=== PATIENT | female | born 1945 | race Caucasian/White ===

== ENCOUNTER → 2018-04-19 13:20 | Outpatient (CLI) | payer MEDICARE, SELFPAY ==
[2018-04-19 13:41] LABS: Hematocrit 40.5 % (37-47); Hemoglobin 12.7 g/dl (12.0-15.0); Mean Corp Hgb Conc 31.4 g/gl (32-36); Mean Corpuscular Hgb 29.6 pg (27.0-32.0); Mean Corpuscular Volume 94.4 fL (81-99); Mean Platelet Vol. 11.2 fl (6.2-12.0); Platelet Count 235 K/mm3 (150-450); RBC Distribution Width CV 12.8 % (11.6-14.6); RBC Distribution Width SD 43.8 fl (35.1-43.9); Red Blood Count 4.29 M/mm3 (4.2-5.4); White Blood Count 5.6 K/mm3 (4.4-11.0)
[2018-04-19 13:46] LABS: Scan Indicated on CBC? Y/N NO
[2018-04-19 14:06] LABS: Hemoglobin A1c 7.9 % (4.2-6.3)
[2018-04-19 14:09] LABS: AST(SGOT) 16 U/L (15-37); Alanine Aminotransfer ALT/SGPT 23 U/L (13-56); Albumin, Serum 3.8 g/dL (3.2-5.0); Alkaline Phosphatase 120 U/L (45-117); Anion Gap 6 (5-15); BUN 20 mg/dL (7-18); BUN/Creat Ratio 17.5 RATIO (10-20); Calcium,Total 9.1 mg/dL (8.5-10.1); Chloride 108 mmol/L (98-107); Cholesterol 181 mg/dL (200); Creatinine, Serum 1.14 mg/dL (0.55-1.02); EST Glomerular Filtration Rate 50 mL/min (>60); Est Glom Filt Rate - Afr Amer 60 mL/min (>60); Globulin 3.8 g/dL (2.2-4.2); Glucose 141 mg/dL (74-106); High Density Lipoprotein 45 mg/dL; Potassium 4.5 mmol/L (3.5-5.1); Protein, Total 7.6 g/dL (6.4-8.2); Sodium Level 140 mmol/L (136-145); Thyroid Stim Hormone (TSH) 5.39 uIU/mL (0.358-3.74); Triglycerides 124 mg/dL; Very Low Density Lipoprotein 25 mg/dL (5-40)
[2018-04-19 14:15] LABS: Microalbumin,Random Urine 28.8 mg/L (NO RANGE EST.); Microalbumin:Creatinine Ratio 12.2 mg/g CRE (<30 mg/g CRE)
== END ==
PROVIDERS: Referring Provider Family Medicine; Visit Provider Family Medicine
DX: E11.22 Type 2 diabetes mellitus with diabetic chronic kidney disease (principal); N18.9 Chronic kidney disease, unspecified; E78.5 Hyperlipidemia, unspecified; Z79.899 Other long term (current) drug therapy
CPT/HCPCS: 80053; 80061; 82043; 82570; 83036; 84443; 85027

== ENCOUNTER → 2018-07-24 13:49 | Outpatient (CLI) | payer MEDICARE, SELFPAY ==
[2018-07-24 14:59] LABS: Absolute Lymphocyte Count 2.32 X10^3/ul (0.83-4.51); Absolute Neutrophil Count 4.3 X10^3/uL (2.0-7.7); Basophil# 0.02 X10^3/uL; Basophil% 0.3 % (0-1); Eosinophil# 0.11 X10^3/uL; Eosinophils% 1.5 % (0-5); Hematocrit 38.1 % (37-47); Hemoglobin 11.9 g/dl (12.0-15.0); Lymphocyte # 2.32 X10^3/ul (4.0); Lymphocyte % 31.2 % (19-41); Mean Corp Hgb Conc 31.2 g/gl (32-36); Mean Corpuscular Hgb 29.5 pg (27.0-32.0); Mean Corpuscular Volume 94.5 fL (81-99); Mean Platelet Vol. 10.8 fl (6.2-12.0); Monocyte# 0.68 X10^3/uL; Monocyte% 9.1 % (0-10); Neutrophil % 57.8 % (47-70); Platelet Count 322 K/mm3 (150-450); RBC Distribution Width CV 12.2 % (11.6-14.6); RBC Distribution Width SD 41.7 fl (35.1-43.9); Red Blood Count 4.03 M/mm3 (4.2-5.4); White Blood Count 7.4 K/mm3 (4.4-11.0)
[2018-07-24 15:00] LABS: POSITIVE COUNT NO; POSITIVE DIFFERENTIAL NO; POSITIVE MORPHOLOGY NO
== END ==
PROVIDERS: Referring Provider Specialist; Visit Provider Specialist
DX: Z01.812 Encounter for preprocedural laboratory examination (principal); M17.11 Unilateral primary osteoarthritis, right knee
CPT/HCPCS: 36415; 85025

== ENCOUNTER → 2018-08-24 | Outpatient (CLI) | payer MEDICARE, SELFPAY ==
--- NOTE | 2018-08-24 15:17 | VDLE_ITS ---
Reason For Study: PAIN RIGHT GSV is normal. CFV is compressible, spontaneous, phasic, competent and demonstrates normal augmentation. FV is compressible, spontaneous, phasic, competent and demonstrates normal augmentation. POP V is compressible, spontaneous, phasic, competent and demonstrates normal augmentation. T/P Trunk is compressible. PTV is compressible. RT PerV is compressible. Procedure Exam performed in department. A preliminary report was called and/or faxed to DR RETANA. Interpretation Summary There is no evidence of right lower extremity deep vein thrombosis. Right greater saphenous vein appears patent and compressible segmentally. Ordering Physician: Baldo Retana Referring Physician: KAMERON BAILEY Performed By: Diane Chang, RDCS, RVT
== END | disposition home or self-care (01) ==
LOC: CVS 15:12
PROVIDERS: Family Provider Family Medicine; PCP Family Medicine; Referring Provider Specialist; Visit Provider Specialist
DX: M79.661 Pain in right lower leg (principal)
CPT/HCPCS: 93971

== ENCOUNTER → 2018-10-23 | Outpatient (CLI) | payer MEDICARE, SELFPAY ==
[2018-10-23 13:59] LABS: Mucous, Urine 0 SEEN /hpf (<or=2+); Red Blood Cells-Urine 0 SEEN /hpf (0-5); Squamous Epithelial Cells - UA 0 SEEN /hpf (5-10)
[2018-10-23 14:39] LABS: Color, Urine Straw (Yellow); Glucose, Dipstick Normal (Normal); Ketone-Dipstick Negative (Negative); Leukocyte Esterase-Dipstick 500 /ul (Negative); Nitrite-Dipstick Negative (Negative); Occult Blood-Urine 25 /ul (Negative); Protein-Dipstick 30 mg/dl (Negative); Urine Bilirubin Dipstick Negative (Negative); Urine Clarity Cloudy (Clear); Urine Urobilinogen Normal (Normal)
[2018-10-23 14:53] LABS: Bacteria 3+ /hpf (None Seen); White Blood Cells 25-50 SEEN /hpf (0-5)
[2018-10-23 14:54] LABS: Amorphous Sediment 1+
== END | disposition home or self-care (01) ==
LOC: LABSPEC 13:13
PROVIDERS: Family Provider Family Medicine; PCP Family Medicine; Referring Provider Family Medicine; Visit Provider Family Medicine
DX: R30.0 Dysuria (principal); R39.9 Unspecified symptoms and signs involving the genitourinary system
CPT/HCPCS: 81001; 87077; 87086; 87088; 87186

== ENCOUNTER → 2019-04-13 09:13 | Outpatient (CLI) | payer MEDICARE, SELFPAY ==
[2019-04-13 10:01] LABS: Hematocrit 38.4 % (37-47); Hemoglobin 12.3 g/dL (12.0-15.0); Mean Corpuscular Hgb 30.2 pg (27.0-32.0); Mean Corpuscular Volume 94.3 fL (81-99); Mean Platelet Vol. 11.5 fl (6.2-12.0); Platelet Count 195 K/mm3 (150-450); RBC Distribution Width CV 12.5 % (11.6-14.6); Red Blood Count 4.07 M/mm3 (4.2-5.4); White Blood Count 6.4 K/mm3 (4.4-11.0)
[2019-04-13 10:19] LABS: Microalbumin,Random Urine 23.1 mg/L (NO RANGE EST.); Microalbumin:Creatinine Ratio 20.6 mg/g CRE (<30 mg/g CRE)
[2019-04-13 10:28] LABS: Hemoglobin A1c 7.3 % (4.2-6.3)
[2019-04-13 10:34] LABS: ALB/GLOB Ratio 1.1 RATIO (0.9-2.4); AST(SGOT) 13 U/L (15-37); Alanine Aminotransfer ALT/SGPT 19 U/L (13-56); Albumin, Serum 3.8 g/dL (3.2-5.0); Alkaline Phosphatase 116 U/L (45-117); Anion Gap 8 (5-15); BUN 17 mg/dL (7-18); BUN/Creat Ratio 15.3 RATIO (10-20); Calcium,Total 8.9 mg/dL (8.5-10.1); Chloride 108 mmol/L (98-107); Cholesterol 212 mg/dL (200); Creatinine, Serum 1.11 mg/dL (0.55-1.02); EST Glomerular Filtration Rate 51 mL/min (>60); Est Glom Filt Rate - Afr Amer 62 mL/min (>60); Globulin 3.4 g/dL (2.2-4.2); Glucose 157 mg/dL (74-106); High Density Lipoprotein 51 mg/dL; Potassium 3.9 mmol/L (3.5-5.1); Protein, Total 7.2 g/dL (6.4-8.2); Sodium Level 143 mmol/L (136-145); Thyroid Stim Hormone (TSH) 6.47 uIU/mL (0.358-3.74); Triglycerides 195 mg/dL; Very Low Density Lipoprotein 39 mg/dL (5-40)
== END ==
PROVIDERS: Family Provider Family Medicine; PCP Family Medicine; Referring Provider Family Medicine; Visit Provider Family Medicine
DX: E11.29 Type 2 diabetes mellitus with other diabetic kidney complication (principal); E78.5 Hyperlipidemia, unspecified; E11.22 Type 2 diabetes mellitus with diabetic chronic kidney disease; N18.3 Chronic kidney disease, stage 3 (moderate); E03.9 Hypothyroidism, unspecified
CPT/HCPCS: 36415; 80053; 80061; 82043; 82570; 83036; 84443; 85027

== ENCOUNTER → 2019-10-17 10:00 | Outpatient (CLI) | payer MEDICARE, SELFPAY ==
[2019-10-17 14:10] LABS: Hemoglobin A1c 6.9 % (3.8-5.6)
[2019-10-17 14:11] LABS: Cholesterol 179 mg/dL (200); High Density Lipoprotein 48 mg/dL; Thyroid Stim Hormone (TSH) 4.66 uIU/mL (0.358-3.74); Triglycerides 134 mg/dL; Very Low Density Lipoprotein 27 mg/dL (5-40)
== END ==
PROVIDERS: PCP Family Medicine; Referring Provider Family Medicine; Visit Provider Family Medicine
DX: E78.5 Hyperlipidemia, unspecified (principal); E11.22 Type 2 diabetes mellitus with diabetic chronic kidney disease
CPT/HCPCS: 80061; 83036; 84443

== ENCOUNTER → 2020-11-04 12:29 | Outpatient (CLI) | payer MEDICARE, SELFPAY ==
[2020-11-04 13:46] LABS: Hemoglobin A1c 7.8 % (3.8-5.6)
[2020-11-04 13:48] LABS: ALB/GLOB Ratio 1.1 RATIO (0.9-2.4); AST(SGOT) 19 U/L (15-37); Alanine Aminotransfer ALT/SGPT 27 U/L (13-56); Alkaline Phosphatase 108 U/L (45-117); Anion Gap 4 (5-15); BUN 16 mg/dL (7-18); BUN/Creat Ratio 12.6 RATIO (10-20); Chloride 107 mmol/L (98-107); Cholesterol 176 mg/dL (200); Creatinine, Serum 1.27 mg/dL (0.55-1.02); EST Glomerular Filtration Rate 44 mL/min (>60); Est Glom Filt Rate - Afr Amer 53 mL/min (>60); Globulin 3.7 g/dL (2.2-4.2); Glucose 156 mg/dL (74-106); High Density Lipoprotein 56 mg/dL; Potassium 4.2 mmol/L (3.5-5.1); Protein, Total 7.7 g/dL (6.4-8.2); Sodium Level 139 mmol/L (136-145); Thyroid Stim Hormone (TSH) 5.35 uIU/mL (0.358-3.74); Triglycerides 110 mg/dL; Very Low Density Lipoprotein 22 mg/dL (5-40)
[2020-11-04 14:05] LABS: Microalbumin,Random Urine 30.9 mg/L (NO RANGE EST.); Microalbumin:Creatinine Ratio 28.3 mg/g CRE (<30 mg/g CRE)
== END ==
PROVIDERS: PCP Family Medicine; Visit Provider Family Medicine
DX: E11.22 Type 2 diabetes mellitus with diabetic chronic kidney disease (principal); E78.5 Hyperlipidemia, unspecified; E03.9 Hypothyroidism, unspecified; N18.9 Chronic kidney disease, unspecified
CPT/HCPCS: 80053; 80061; 82043; 82570; 83036; 84443

== ENCOUNTER 2021-05-17 12:24 | Outpatient (CLI) | payer MEDICARE, SELFPAY ==
[2021-05-17 14:10] LABS: Cholesterol 182 mg/dL (200); High Density Lipoprotein 41 mg/dL; Thyroid Stim Hormone (TSH) 7.79 uIU/mL (0.358-3.74); Triglycerides 155 mg/dL; Very Low Density Lipoprotein 31 mg/dL (5-40)
[2021-05-17 14:48] LABS: Hemoglobin A1c 7.3 % (3.8-5.6)
== END 2021-05-17 23:59 | disposition short-term general hospital (02) ==
PROVIDERS: PCP Family Medicine; Referring Provider Family Medicine; Visit Provider Family Medicine
DX: E03.9 Hypothyroidism, unspecified (principal); E11.22 Type 2 diabetes mellitus with diabetic chronic kidney disease; N18.32 Chronic kidney disease, stage 3b; E78.5 Hyperlipidemia, unspecified
CPT/HCPCS: 80061; 83036; 84443

== ENCOUNTER 2024-08-02 12:23 | Emergency (ER) | payer MEDICARE, SELFPAY ==
[2024-08-02] VITALS (7 sets, daily range): BP systolic 150–172; BP diastolic 79–99; PULSE 96–111; RESP 16–19; TEMP 36.6; O2SAT 96–98; BMI 26.6
--- NOTE | 2024-08-02 12:24 | CT_ITS ---
EXAM: CT Head Without Intravenous Contrast CLINICAL INDICATION: NEURO DEFICIT, ACUTE, STROKE SUSPECTED TECHNIQUE: Axial computed tomography images of the head/brain without intravenous contrast. This CT exam was performed using one or more of the following dose reduction techniques: automated exposure control, adjustment of the mA and/or kV according to patient size, and/or use of iterative reconstruction technique. COMPARISON: No relevant prior studies available. FINDINGS: BRAIN AND EXTRA-AXIAL SPACES: Areas of decreased attenuation in the deep cerebral white matter are consistent with small vessel ischemic/degenerative changes. The cerebral and cerebellar sulci are prominent consistent with brain atrophy. No acute intracranial hemorrhage, midline shift or mass effect. If symptoms persist, further evaluation with MRI is recommended. BONES/JOINTS: Unremarkable. No acute fracture. SOFT TISSUES: Unremarkable. SINUSES: Unremarkable as visualized. No acute sinusitis. MASTOID AIR CELLS: Unremarkable as visualized. No mastoid effusion. CT/STROKE Brain/Head without Cont IMPRESSION: 1. Small vessel ischemic/degenerative changes. 2. Generalized brain atrophy. 3. No acute intracranial hemorrhage, midline shift or mass effect. If symptoms persist, further evaluation with MRI is recommended. Findings were discussed with Dr. Morgan by phone on 08/02/2024 at 1250 hours. Reading [facility]
--- NOTE | 2024-08-02 12:24 | CT_ITS ---
PROCEDURE: STROKE CTA HEAD AND NECK W/CON 08/02/2024 REASON FOR EXAM: NEURO DEFICIT, ACUTE, STROKE SUSPECTED TECHNIQUE: CTA imaging of the head and neck from the aortic arch to the skull vertex with intravenous contrast. 3D reconstructions. Coronal and Sagittal reconstruction series were provided. CONTRAST: Isovue 370 VOLUME: 100mL One or more dose reduction techniques were used (e.g., Automated exposure control, adjustment of the mA and/or kV according to patient size, use of iterative reconstruction technique). RADIATION DOSE SUMMARY: CTDlvol: 18.61 mGy DLP: 780.22 mGycm COMPARISON: Comparison is made with prior CT scan of the brain done earlier in the day. FINDINGS: Aortic Arch: Normal size and branching pattern. Mild atherosclerotic plaque. Brachiocephalic and Subclavians: Unremarkable RIGHT Carotid: Right CCA: Unremarkable. Right ICA: Mild calcified and soft plaque.. Less than 50% narrowing. Right ECA: Unremarkable. LEFT Carotid: Left CCA: Unremarkable. Left ICA: Mild calcified and soft plaque. Maximum stenosis (NASCET): <50 % Left ECA: Vertebrals: RIGHT Vertebral: Small right vertebral artery LEFT Vertebral: Dominant left vertebral artery Anatomy: Atherosclerotic calcification of the cavernous portions of the internal carotid arteries bilaterally. Aneurysm or avm: No intracranial aneurysms or large vascular malformations are identified. Anterior cerebral arteries: Unremarkable: Middle cerebral arteries: Unremarkable. Basilar artery: Unremarkable. Posterior cerebral arteries: Unremarkable. Other major branches of the posterior circulation: Unremarkable. CT/STROKE CTA Head AND Neck W/Con IMPRESSION: RIGHT CAROTID: Mild degree of calcific plaque at the origin of the right hospitality internship al carotid artery. LEFT CAROTID: Mild degree of calcific plaque at the origin of the left internal carotid artery. VERTEBRALS: Dominant left vertebral artery INTRACRANIAL: Unremarkable Other impression: No significant stenosis seen. Reading Location: [place] [id number]
--- NOTE | 2024-08-02 12:24 | EKG12_ITS ---
Test Reason : STROKE Blood Pressure : */* mmHG Vent. Rate : 96 BPM Atrial Rate : * BPM P-R Int : * ms QRS Dur : 82 ms QT Int : 366 ms P-R-T Axes : * 74 184 degrees QTcB Int : 462 ms Atrial fibrillation Nonspecific ST and T wave abnormality Abnormal ECG Confirmed by PEDRITO LAWSON, ROCHELLE ([id number]), newspaper managing editor NAIMA BEARDEN ([id number]) on 08/05/2024 6:47:07 AM Referred By: Confirmed By: ROCHELLE MAJOR MD
--- NOTE | 2024-08-02 12:25 | EDS_ITS ---
HPI History of Present Illness Chief Complaint: Stroke Alert Informant: patient and EMS Narrative Narrative: Patient presenting from home by EMS as a prehospital stroke alert. Last seen normal 9:15 AM, arrives 12:20 PM approximately. found her lying on the floor about 10 or 20 minutes prior to noon when he came home from work. Patient amnestic about all events since he left for work, but states she thinks she remembers taking her medications this morning. EMS states left-sided weakness resulting in a fall and a minor injury to her left temporal area of her face. Unknown medications per EMS. Prehospital blood pressure and vital signs and BGT noted. Patient confirms she takes Eliquis which is on her list in the EMR. states they returned home from [facility] about 1.5-2 weeks ago, and they both had colds. He is better, but she is on round 2. [facility] Medical History Paroxysmal atrial fibrillation with RVR Coronary artery disease Essential hypertension Hyperlipidemia Kidney disease Type 2 diabetes mellitus without complication Goiter Diverticulosis Home Medications ?Medication ?Instructions ?Recorded ?Last Taken ?Type apixaban 2.5 mg tablet (Eliquis) 2.5 mg PO BID 5 Unknown History atenolol 50 mg tablet 50 mg PO QDAY 07/03/24 Unkno wn History atorvastatin 80 mg tablet 80 mg PO QHS 07/03/24 Unknow n History doxycycline hyclate 100 mg capsule 100 mg PO BID 07/03 Unknown History glimepiride 2 mg tablet 2 mg PO QAM 07/03/24 Unknown History levothyroxine 75 mcg tablet 75 mcg PO 6XW 07/03/24 Unk nown History metformin 500 mg tablet,extended 1,000 mg PO QDAY 06/15 02/06 Unknown History release 24 hr oxybutynin chloride 5 mg 5 mg PO QDAY 07/03/24 Unknow n History tablet,extended release 24 hr amoxicillin 500 mg capsule 500 mg PO Q8H 08/02/24 Unkn own History Allergy/AdvReac Type Severity Reaction Status Date / Time benzocaine Allergy Unknown Rash Verified 08/02/24 12:45 perfume Allergy Unknown Shortness Verified 08/02/24 12:45 of breath Sulfa (Sulfonamide Allergy Unknown Unknown Verified 08/02/24 12:45 Antibiotics) cocaine AdvReac Unknown Inverted T Verified 08/02/24 12:45 waves Family History (Updated 07/03/24 @ 10:19 by Bertha Turpin) Mother Diabetes Hypertension Psychiatric disorder Grandmother Cancer Sister Thyroid disorder Surgical History History of cyst of breast History of History of bilateral cataract extraction History of open reduction and internal fixation (ORIF) procedure History of colonoscopy (~2021) Social History Smoking Status: Never smoker alcohol intake: never substance use type: does not use ROS ROS ED Constitutional Constitutional ED: Denies chills or fever(s) Eyes Eyes: Denies change in vision or diplopia ENT ENT ED: Denies rhinorrhea or sore throat Cardiovascular Cardiovascular: Denies chest pain or palpitations Respiratory/Chest Respiratory/Chest: Denies cough or dyspnea Gastrointestinal Gastrointestinal: Denies abdominal pain, diarrhea, nausea or vomiting Genitourinary Genitourinary ED: Denies dysuria or hematuria Musculoskeletal Musculoskeletal: Denies back pain or neck pain Integumentary Denies abscess or rash Neurologic Neurologic: Reports weakness; Denies headache(s) EXAM Physical Exam Const Vital Signs: 08/02/24 12:37 08/02/24 12:41 08/02/24 12:46 Temperature 98 F Temperature Source Oral Pulse Rate 99 99 Respiratory Rate 17 16 Blood Pressure 172/99 H 157/86 H Blood Pressure Mean 123 109 Pulse Ox 98 96 Oxygen Delivery Method Room Air Room Air Room Air 08/02/24 12:54 Temperature Temperature Source Pulse Rate 98 Respiratory Rate 18 Blood Pressure 163/97 H Blood Pressure Mean 119 Pulse Ox 97 Oxygen Delivery Method Room Air Positive well nourished and well developed General Appearance ED: well developed and NAD HEENT Reports moist mucous membranes HEENT Narrative: Contusion/abrasion left temporal forehead, just left of the orbit. Zygomatic arch intact and nontender without crepitance or deformity. No hematoma. No other signs of HEENT trauma. normocephalic and trauma Eyes PERRL and EOMs intact bilaterally Neck full ROM and supple Resp normal respiratory effort and clear to auscultation bilaterally Cardio no murmurs Rhythm: abnormal rhythm irregularly irregular GI non-tender and non-distended Auscultation: normoactive bowel sounds Palpation: soft Back/Spine no CVA tenderness General Back: other FROM Extremity normal to inspection Extremity Narrative: Distal pulses intact x 4 General Extremety ED: Negative for edema, pulses abnormal or tenderness General Extremity: Negative for edema or pulses abnormal Neuro Neuro Narrative: Dense weakness left arm and leg and left lower face. Raises eyebrows normally. Has some hemineglect with regards to vision although she is able to overcome gazing left with reflexive movements, and visual richards appear to be intact, as well as hemineglect of the leg. Sensorium / Orientation: awake and alert Psych mental status grossly normal Skin no rashes or lesions noted and no wounds NIHSS NIHSS Initial: 1a Level of Consciousness: 1 1b LOC Questions (Score 2 if aphasic/stupor): 1 1c LOC Commands (Only score 1st attempt): 0 2 Best Gaze (If aphasic, use reflexive mvmts.): 1 3 Visual: 0 4 Facial Palsy: 2 5 Motor Arm Right (UN = amputation/fusion): 0 5 Motor Arm Left: 4 6 Motor Leg Right: 0 6 Motor Leg Left: 3 7 Limb ataxia (Only + if out of proportion): 0 8 Sensory (Aphasia/stupor=0 or 1, coma=2): 2 9 Best Language: 0 10 Dysarthria (mute, coma=2, intubated=UN): 1 11 Extinction and Inattention (only scored if +): 2 Total Score: 17 MDM MDM MDM Narrative Medical decision making narrative: Patient initially seen in the EMS bay, sent directly to CT and reevaluated more thoroughly once patient arrived to the room and the arrived to provide more history, see HPI. Patient think she last took her Eliquis this morning, the plain CT shows no hemorrhage. The states that she is inconsistent with taking her medications sometimes and so he did not know when she last took it. Given the history, the stroke neurologist and I both agree that it is too risky to give her TNK given that history. Spoke with Dr. Gibson with stroke neurology at 1255, who was able to view the CTA imaging and confirms that there is a right MCA M1 LVO and recommends that we transfer the patient there soon as possible. [facility] contacted for air transport. Discussed with and patient, they are comfortable with [facility] transfer. Lab Data Attestation: I reviewed the patient's lab results. Labs: Laboratory Results - last 24 hr 08/02/24 12:40 WBC 8.7 RBC 4.56 Hgb 13.8 Hct 42.0 MCV 92.1 MCH 30.3 MCHC 32.9 RDW Std Deviation 45.3 H RDW Coeff of Blake 13.3 Plt Count 214 MPV 10.7 Immature Gran % (Auto) 0.300 Neut % (Auto) 71.4 H Lymph % (Auto) 17.9 L Yell % (Auto) 8.9 Eos % (Auto) 1.0 Baso % (Auto) 0.5 Absolute Neuts (auto) 6.2 Absolute Lymphs (auto) 1.56 Nucleated RBC % 0 PT 14.1 INR 1.1 APTT 28.4 Sodium 132 L Potassium 4.2 Chloride 98 Carbon Dioxide 22.0 Anion Gap 12 BUN 20 H Creatinine 1.74 H Estim Creat Clear Calc 27.14 L Est GFR (MDRD) Non-Af 29 L BUN/Creatinine Ratio 11.6 Glucose 235 H Calcium 9.0 Troponin T High Sens 38 H Radiography Diagnostic Testing: Clinical Impression(s) from Imaging Studies Brain CT 08/02/24 12:24 IMPRESSION: 1. Small vessel ischemic/degenerative changes. 2. Generalized brain atrophy. 3. No acute intracranial hemorrhage, midline shift or mass effect. If symptoms persist, further evaluation with MRI is recommended. Findings were discussed with Dr. Morgan by phone on 08/02/2024 at 1250 hours. Reading Location: [facility] Head/Neck CTA 08/02/24 12:24 IMPRESSION: RIGHT CAROTID: Mild degree of calcific plaque at the origin of the right internal carotid artery. LEFT CAROTID: Mild degree of calcific plaque at the origin of the left internal carotid artery. VERTEBRALS: Dominant left vertebral artery INTRACRANIAL: Unremarkable Other impression: No significant stenosis seen. Reading Location: [facility] Rhythm Strip Rhythm Strip: A-fib Rate: 90 Ectopy: None EKG Initial EKG: Attestation: I personally reviewed and interpreted this EKG as follows: Interpretation: No Acute Injury Pattern, Atrial Fibrillation and Non- Specific ST Changes Management Discussion w/another healthcare provider: Tourist Adviser ([facility] stroke neurology) and Radiologist Stroke Documentation Questions Stroke Team Activated: Yes (Prehospital) Reviewed Inclusion/Exclusion criteria: Yes Was Patient considered for Endovascular Intervention?: Yes-CTA +,PT transferred for further eval of endovascular intervention IV Thrombolytic Administered: No (On Eliquis, possibly last took within the past 6 hours) No contraindications from thrombolytic administration: No Critical Care Time Critical Care Time: Yes Critical care time (excluding procedures): 30-74 minutes (36 min), Including time spent:, Discussing w/Patient &/or Family/Biomedical Electronics Technician, Discussing w/Consultants, Arranging Admission or Transfer and Performing Direct Patient Care at Bedside Discharge Plan Triage Chief Complaint: Stroke Alert ED Provider: Pieter Morgan Dx/Rx/DC Orders Clinical Impression: Acute ischemic right MCA stroke, Anticoagulated, Acute on chronic renal insufficiency, URI (upper respiratory infection) Prescriptions: No Action doxycycline hyclate 100 mg capsule 100 mg PO BID glimepiride 2 mg tablet 2 mg PO QAM Rx Instructions: administer with breakfast levothyroxine 75 mcg tablet 75 mcg PO 6XW Eliquis 2.5 mg tablet 2.5 mg PO BID oxybutynin chloride 5 mg tablet extended release 24hr 5 mg PO QDAY atenolol 50 mg tablet 50 mg PO QDAY metformin 500 mg tablet extended release 24 hr 2,000 mg PO QDAY atorvastatin 80 mg tablet 80 mg PO QHS amoxicillin 500 mg capsule 500 mg PO Q8H Primary Care Provider: Dwain Caruso Referrals: Dwain Caruso MD [Primary Care Provider] - Print Language: Gabonese Disposition Disposition: Acute Care Hospital Discharge Location: [facility]
[2024-08-02 12:57] LABS: Absolute Lymphocyte Count 1.56 X10^3/uL (0.83-4.51); Absolute Neutrophil Count 6.2 X10^3/uL (2.0-7.7); Basophil# 0.04 X10^3/uL; Basophil% 0.5 % (0-1); Eosinophil# 0.09 X10^3/uL; Hemoglobin 13.8 g/dL (12.0-15.0); Lymphocyte # 1.56 X10^3/ul (0.83-4.51); Lymphocyte % 17.9 % (19-41); Mean Corp Hgb Conc 32.9 g/dL (32-36); Mean Corpuscular Hgb 30.3 pg (27.0-32.0); Mean Corpuscular Volume 92.1 fL (81-99); Mean Platelet Vol. 10.7 fl (6.2-12.0); Monocyte# 0.78 X10^3/uL; Monocyte% 8.9 % (0-10); NRBC Flagged by Analyzer 0 % (0-5); Neutrophil # 6.23 X10^3/uL (2.7-7.7); Neutrophil % 71.4 % (47-70); Platelet Count 214 K/mm3 (150-450); RBC Distribution Width CV 13.3 % (11.6-14.6); RBC Distribution Width SD 45.3 fl (35.1-43.9); Red Blood Count 4.56 M/mm3 (4.2-5.4); White Blood Count 8.7 K/mm3 (4.4-11.0)
[2024-08-02 13:03] LABS: International Normalized Ratio 1.1; Prothrombin Time (Protime)PT. 14.1 SECONDS (11.7-14.9)
[2024-08-02 13:04] LABS: Partial Thromboplast Time 28.4 Seconds (24.1-36.2)
[2024-08-02 13:12] LABS: Anion Gap 12 (5-15); BUN 20 mg/dL (4-19); BUN/Creat Ratio 11.6 RATIO (10-20); Chloride 98 mmol/L (98-108); Creatinine, Serum 1.74 mg/dL (0.70-1.20); EST Glomerular Filtration Rate 29 (>60); Estimated Creatinine Clearance 27.14 ml/min (50-250); Glucose 235 mg/dL (70-99); Potassium 4.2 mmol/L (3.3-5.1); Sodium Level 132 mmol/L (133-145); Troponin T High Sensitivity 38 ng/L (<=14)
--- NOTE | 2024-08-02 13:46 | CHAPLAIN ---
Type of Pastoral Visit ___ Initial Visit ___ Follow-up Visit ___ On-call Visit ___ General Patient Visit ___ Spiritual Assessment ___ Family Conference ___ Bereavement _x__ Rapid Response ___ Code Blue ___ Other (describe below) Pastoral Care Referral From ___ Patient ___ Family ___ Nurse ___ Physician ___ Level Vial Inspector And Tester ___ [employer] _x__ Other (describe below) Sacrament/Intervention _x__ Active listening ___ Anointing ___ Advent ___ Bereavement ___ Communion ___ Henny exploration ___ ___ Life review _x__ Prayer ___ Reconciliation ___ Sacrament of Sick _x__ Supportive presence ___ Wedding ___ Other (describe below) Pastoral Comments responded to stroke alert; pt was back in the room from [place]; DR was talking with the about transporting pt to [place] for treatment; things were put into place for helicopter transfer; talked with both pt and spouse; spouse gives details and explains their recent trip to [facility] safari; pt welcomes a prayer for support; offer of presence and beverages to the spouse;
== END 2024-08-02 13:56 | disposition short-term general hospital (02) ==
PROVIDERS: Emergency Provider Emergency Medicine; PCP Family Medicine; Visit Provider Emergency Medicine
DX: I63.89 Other cerebral infarction (principal); G81.94 Hemiplegia, unspecified affecting left nondominant side; I48.0 Paroxysmal atrial fibrillation; E11.22 Type 2 diabetes mellitus with diabetic chronic kidney disease; J06.9 Acute upper respiratory infection, unspecified; N18.9 Chronic kidney disease, unspecified; N17.9 Acute kidney failure, unspecified; S00.81XA Abrasion of other part of head, initial encounter; S00.83XA Contusion of other part of head, initial encounter; W19.XXXA Unspecified fall, initial encounter; I12.9 Hypertensive chronic kidney disease with stage 1 through stage 4 chronic kidney disease, or unspecified chronic kidney disease; I25.10 Atherosclerotic heart disease of native coronary artery without angina pectoris; E78.5 Hyperlipidemia, unspecified; E04.9 Nontoxic goiter, unspecified; R29.717 NIHSS score 17; Z79.01 Long term (current) use of anticoagulants; Z79.84 Long term (current) use of oral hypoglycemic drugs; Z79.890 Hormone replacement therapy; Z79.899 Other long term (current) drug therapy; Z91.148 Patient's other noncompliance with medication regimen for other reason
CPT/HCPCS: 51702; 70450; 70496; 70498; 80048; 84484; 85025; 85610; 85730; 87631; 93005; 99285; Q9967

== ENCOUNTER → 2024-10-15 05:00 | Outpatient (REF) | payer MEDICARE, SELFPAY ==
--- OUTSIDE RECORDS SUMMARY | 2024-10-15 03:38 | XMS RPT_ITS | CCD ---
Author Organization [facility] Care Team Providers Care Aluminum Pourer Name Role Phone KETTY DOWNS Attending Unavailable PHYSICIAN, NONE Primary Care Unavailable KETTY DOWNS Attending Unavailable PHYSICIAN, NONE Primary Care Unavailable KETTY DOWNS Admitting Unavailable RICHARD PRIEST Consulting Unavailable KETTY DOWNS Attending Unavailable PHYSICIAN, NONE Primary Care Unavailable Kameron Caruso Primary Care Provider Kameron Caruso Primary Care Provider Kameron Caruso MD Primary Care Provider Kameron Caruso MD Primary Care Provider Kameron Caruso MD Primary Care Provider Kameron Caruso MD Primary Care Provider Kameron Caruso MD Primary Care Provider Светлана INFANT LEAD TEACHER.Emma TUCKER Unavailable Saurav INFANT LEAD TEACHER.Mj TUCKER Unavailable JUVENTINO ROGERS Attending Unavailable JUVENTINO ROGERS Admitting Unavailable CATA ALFRED Attending Unavailable CATA ALFRED Admitting Unavailable Dr. Kameron Caruso MD Primary Care Provider Dr. Pieter Morgan MD Emergency Provider Kameron Caruso MD Primary Care Provider CHRISTOS VOSS Attending Unavailable CONSULT, GASTROENTEROLOGY Consulting PIETER Wolf Referring Unavailable PREMA RAMOS Admitting Unavailable KAMERON CARUSO Primary Care Unavailable BITTAR, RICHARD Referring Unavailable MADONNA, LUCINDA S Attending Unavailable MADONNA LUCINDA S Admitting Unavailable Tannhof Emma YAO Unavailable Unavail able KAMERON CARUSO Referring Unavailable KAMERON CARUSO Primary Care Unavailable KAMERON CARUSO Attending Unavailable KAMERON CARUSO Primary Care Unavailable EMMA SOTOMAYOR Attending Unavailable KAMERON CARUSO Primary Care Unavailable KAMERON CARUSO Primary Care Unavailable KAMERON CARUSO Primary Care Unavailable KAMERON CARUSO Referring Unavailable KAMERON CARUSO Primary Care Unavailable KAMERON CARUSO Attending Unavailable KAMERON CARUSO Primary Care Unavailable KAMERON CARUSO Referring Unavailable KAMERON CARUSO Primary Care Unavailable KAMERON CARUSO Attending Unavailable KAMERON CARUSO Primary Care Unavailable LEO LAWSON, DR MELO Primary Care Physician [phone] Cathy LAWSON, Dr. Stapleton Attending Provider Safia Ruelas MD Attending Provider UnavailDr. Kameron Marquez MD Referring Provider [phone] Makayla LAWSON, Dr. Barker Attending Provider DR KAMERON CARUSO MD Primary Care Unavailab SILVINO Monzon DO Admitting Unavailable SILVINO HA DO Attending Unavailable BRYON LAWSON, DR REECE Consulting Unavailab NANDO Lofton DO Consulting Unavailable SUDARSHAN WEATH[employer]-WOODEN BARREL MECHANIC, AMI Hwang Consulting Unavailjair GIBSON PhD, MATTHEW Zamudio Consulting Unavailable Kameron Caruso Primary Care Unavailable Enricoe OLS, Efewongbe Attending Unavailabl Kameron Jolley Primary Care Unavailable Kameron Caruso Referring Unavailable Mj Benavides Attending Unavailable Kameron Caruso Primary Care Unavailable Claudio SISAL OPERATOR, Bret Attending Unavailable Kameron Caruso Primary Care Unavailable Jessenia, Efewongbe Attending Unavailable Kameron Caruso Primary Care Unavailable Oleghe OLS, Efewongbe Attending Unavailabl e ElderKameron mckeon Primary Care Unavailable Oleghe OLS, Efewongbe Attending Unavailabl e ElderKameron mckeon Primary Care Unavailable Oleghe OLS, Efewongbe Attending Unavailabl e Oleghe OLS, Efewongbe Attending Unavailabl e Kameron Caruso Primary Care Unavailable Oleghe OLS, Efewongbe Referring Unavailabl e Elderbrock, Kameron Primary Care Unavailable Safia Vanegas [facility] Unavailable Pieter Morgan Attending Unavailable Allergies Allergy Classification Reported Allergen(s) Allergy Type Date of Onset Reaction(s) Facility (2 sources) Sulfonamides (Antibiotic) Propensity to adverse reactions to drug 6 Other (See Comments) [place] (2 sources) Other Propensity to adverse reactions 6 Shortness Of Breath [place], [place] (20 sources) Benzocaine; Translations: [BENZOCAINE] Drug Allergy [address] [facility] Work Phone: (20 sources) Cocaine; Translations: [COCAINE] Drug Allergy 9 Inverted T waves [facility] Work Phone: (20 sources) Sulfonamides (Antibiotic); Translations: [SULFA (SULFONAMIDE ANTIBIOTICS)] Propensity to adverse reactions [address] [facility] Work Phone: (20 sources) Perfumes; Translations: [PERFUMES] Propensity to adverse reactions 6 Shortness of Breath [facility] Work Phone: (2 sources) Sulfonamides (Antibiotic) Allergy to substance 5 Unknown [facility] (4 sources) perfume; Translations: [perfume] Allergy to substance 5 Shortness of breath [facility] (1 source) Cocaine; Translations: [cocaine nasal] Drug Allergy [facility] (1 source) Codeine; Translations: [codeine] Drug Allergy Pharyngeal swelling (finding) [facility] (1 source) Sulfonamide; Translations: [sulfa drugs] Drug allergy [facility] (1 source) Benzocaine Drug Allergy 5 [facility] (1 source) Cocaine Drug Allergy 5 [facility] (1 source) Sulfonamides (Antibiotic) Drug allergy (disorder) 5 [facility] Medications Current Medications Medication Drug Class(es) Dates Sig (Normalized) Sig (Original) acetaminophen 325 mg oral capsule (5 sources) Start: 09-05-2024 take 1 capsule by mouth every four hours as needed for pain Tylenol 325 mg oral capsule Dose : 650 mg =, PEG, q4h, PRN Muscle pain, 0 Refill(s) Start Date: 09/05/24 Status: Ordered Repeat number: 1 Start: 08-09-2024 End: 08-15-2024 take 975 mg intragastric route every eight hours as ne eded Start: 08-02-2024 End: 08-09-2024 take 975 mg nasogastric route every eight hours as nee ded apixaban 2.5 mg oral tablet (17 sources) Factor Xa Inhibitor Start: 10-02-2024 take 2 tablets by mouth twice daily Apixaban (Eliquis) 2.5 mg tablet Active 5 mg PO TWICE A DAY October 02, 2024 9:40am Start: 08-15-2024 apixaban 5 mg oral tablet Dose : 5 mg = 1 tab(s), PEG, BID, 0 Refill(s), 75.4 Start Date: 08/15/24 Status: Ordered Repeat number: 1 Start: 08-13-2024 End: 11-12-2024 Start: 08-11-2024 End: 08-13-2024 Start: 05-31-2024 End: 10-02-2024 take 1 tablet by mouth twice daily Apixaban (Eliquis) 2.5 mg tablet Discontinued 2.5 mg PO TWICE A DAY July 03, 2024 1:00am October 02, 2024 9:42am atorvastatin 80 mg oral tabl et (20 sources) HMG-CoA Reductase Inhibitor Start: 08-14-2024 End: 11-12-2024 Start: 08-09-2024 End: 08-15-2024 Start: 08-03-2024 End: 08-09-2024 Start: 07-03-2024 take 1 tablet by christ th at bedtime Atorvastatin 80 mg tablet Active 80 mg PO AT BEDTIME July 03, 2024 1:00am Start: 11-25-2022 End: 11-28-2023 take 1 tablet by mouth at bedtime Atorvastatin 80 mg tablet Active 80 mg PO AT BEDTIME July 03, 2024 1:00am Start: 08-06-2018 End: 01-11-2022 take 1 tablet by mouth once daily atorvastatin (LIPITOR) 80 mg tablet Indications: Hyperlipidemia, unspecified hyperlipidemia type Take 1 tablet by mouth once daily 90 tablet 3 01/11/2022 Active Comment on above: Take 1 tablet by christ once daily. Take 1 tablet by christ once daily betamethasone 0.5 mg/ml topical lotion (20 sources) Corticosteroid Start: Betamethasone Dipropionate 0.05 % lotion Indications: Psoriasis of scalp Apply 1 application to affected area twice daily. 60 mL 5 05/01/2014 Active Comment on above: Apply 1 application to affected area twice daily. Blood-Glucose Meter (ONETOUCH ULTRA2 METER) monitoring kit (1 source) Start: End: Blood-Glucose Meter (ONETOUCH ULTRA2 METER) monitoring kit 1 Each as needed for up to 1 day. One Touch Meter Kit Diagnosis: Type 2 DM - Controlled E11.9 1 Each 0 10/14/2021 10/15/2021 Active Comment on above: 1 Each as needed for up to 1 day. One Touch Meter Kit Diagnosis: Type 2 DM - Controlled E11.9 cyclobenzaprine hydrochloride 10 mg oral tablet (2 sources) Muscle Relaxant Start: End: take 1 tablet by mouth three times daily as needed for muscle spasms cyclobenzaprine (FLEXERIL) 10 mg tablet Indications: Acute midline low back pain without sciatica Take 1 tablet by mouth three times daily as needed for muscle spasm for up to 10 days. 30 tablet 0 03/02/2022 03/12/2022 Active Comment on above: Take 1 tablet by christ three times daily as needed for muscle spasm for up to 10 days. donepezil hydrochloride 5 mg oral tablet (2 sources) Start: take 1 tablet by mouth once daily Donepezil 5 mg tablet Active 5 mg PO daily October 02, 2024 12:00am Start: 09-05-2024 Aricept 5 mg o ral tablet Dose : 5 mg = 1 tab(s), Oral, qHS, 0 Refill(s) Start Date: 09/05/24 Status: Ordered Repeat number: 1 glimepiride 2 mg oral tablet (20 sources) Sulfonylurea Start: 08-14-2024 End: 11-12-2024 Start: 07-07-2022 End: 08-14-2024 glimepiride 2 mg oral tablet Dose : 4 mg = 2 tab(s), PEG, BID, 0 Refill(s) Start Date: 09/05/24 Status: Ordered Repeat number: 1 Comment on above: Take 1 tablet by christ th daily with breakfast. glucose 0.45 mg/mg oral gel (1 source) Start: 08-14-2024 insulin lispro 100 unt/ml injectable solution (1 source) Insulin Analog Start: 09-05-2024 HumaLOG 100 units/mL subcutaneous solution Give 0-6 units/dose, Subcutaneous, TIDAC, 0 Refill(s) Start Date: 09/05/24 Status: Ordered Repeat number: 1 levothyroxine (20 sources) l-Thyroxine Start: 08-15-2024 levothyroxine Dose : 75 mcg =, PEG, qDay, 0 Refill(s) Start Date: 08/15/24 Status: Ordered Repeat number: 1 Start: 08-10-2024 End: 11-12-2024 Start: 08-05-2024 End: 08-09-2024 Start: 07-03-2024 End: 08-14-2024 take 1 tablet by mouth six times weekly Levothyroxine 75 mcg tablet Active 75 ug PO 6 times per week July 03, 2024 1:00am Start: 05-30-2023 End: 11-27-2024 take 1 tablet by mouth once daily before breakfast levothyroxine (SYNTHROID) 75 mcg tablet Indications: Hypothyroidism, unspecified type Take 1 tablet by mouth daily before breakfast six days per week. 05/31/2024 Active lisinopril 10 mg oral tablet (3 sources) Angiotensin Converting Enzyme Inhibitor Start: 08-10-2024 End: 11-13-2024 Start: 08-08-2024 End: 08-09-2024 loratadine 10 mg oral tablet (1 source) Start: 10-10-2023 End: 10-19-2023 take 1 tablet by mouth once daily loratadine (CLARITIN) 10 mg tablet Take 1 tablet by mouth once daily for 9 days. 9 tablet 0 10/10/2023 10/19/2023 Active 24 hr metFORMIN hydrochloride 500 mg extended release oral tablet (20 sources) Biguanide Start: 10-02-2024 Metformin 500 mg tablet extended release 24 hr Active 850 mg PO TWICE A DAY October 02, 2024 9:41am Start: 09-05-2024 metFORMIN 500 mg oral tablet (IR) Dose : 500 mg = 1 tab(s), PEG, BID, 0 Refill(s) Start Date: 09/05/24 Status: Ordered Repeat number: 1 Start: 07-03-2024 End: 10-02-2024 Metformin 500 mg tablet exte nded release 24 hr Discontinued 2000 mg PO daily July 03, 2024 1:00am October 02, 2024 9:42am Start: 11-25-2022 End: 11-28-2023 Metformin 500 mg tablet exte nded release 24 hr Active 2000 mg PO daily July 03, 2024 1:00am Start: 05-18-2021 End: 01-11-2022 metFORMIN ER (GLUCOPHAGE XR) 500 mg 24 hr tablet Indications: Type 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, unspecified CKD stage, unspecified whether group home insulin use (HCC) , Type 2 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, without long-term current use of insulin (HCC) TAKE 4 TABLETS BY MOUTH ONCE DAILY WITH BREAKFAST 360 tablet 3 01/11/2022 Active Start: 10-24-2018 metFORMIN (GLU COPHAGE-XR) 500 MG extended release tablet Take 2,000 mg by mouth 0 10/24/2018 Active Comment on above: Take 4 tablets by mo [facility] daily with breakfast. TAKE 4 TABLETS BY MO UT ONCE DAILY WITH BREAKFAST methylphenidate hydrochloride 5 mg oral tablet (5 sources) Central Nervous System Stimulant Start: 10-03-19 take 1 tablet by mouth once daily in the morning Methylphenidate Hcl 5 mg tablet Active 5 mg PO EVERY MORNING October 02, 2024 9:42am Via PEG tube Start: 09-12-2024 End: 10-02-2024 take 1 tablet by mouth twice daily Methylphenidate Hcl 5 mg tablet Discontinued 5 mg PO TWICE A DAY 40 September 16, 2024 October 05, 2024 12:00am October 02, 2024 9:42am Via PEG tube Start: 09-09-2024 End: 09-16-2024 Ritalin 5 mg oral tablet Dos e : 5 mg = 1 tab(s), Oral, BID, 0 Refill(s), 76 Start Date: 09/09/24 Status: Ordered Repeat number: 1 methylPREDNISolone (1 source) Corticosteroid Start: 09-29-2023 End: 10-05-2023 methylPREDNISolone (MEDROL, KIKE,) 4 mg Dose-Pack Follow dosing instructions, take with food. 21 tablet 0 09/29/2023 10/05/2023 Active metoprolol tartrate 50 mg oral tablet (11 sources) beta-Adrenergic Shea Start: 10-02-2024 take 1 tablet by mouth twice daily Metoprolol Tartrate 50 mg tablet Active 50 mg PO TWICE A DAY October 02, 2024 12:00am Start: 08-15-2024 End: 09-09-2024 metoprolol tartrate 50 mg or al tablet Start: 09/09/24 8:00:00 AM EDT, Dose = 50 mg, = 1 tab(s), PEG, Hold if SBP (mmHg) Start Date: 09/09/24 Stop Date: 09/09/24 Status: Completed Repeat number: 1 Start: 08-09-2024 End: 11-12-2024 Start: 08-06-2024 End: 08-09-2024 Start: 08-03-2024 End: 08-06-2024 Start: 08-03-2024 End: 08-03-2024 ONE TOUCH GLUCOSE CONTROL SOLN (20 sources) Start: 07-08-2005 ONE TOUCH GLUC OSE CONTROL SOLN Indications: Type II or unspecified type diabetes mellitus without mention of complication, not stated as uncontrolled use as directed. 1 5 07/08/2005 Active Comment on above: use as directed. 1000 ml sodium chloride 9 mg/ml injection (5 sources) Start: 08-15-2024 End: 08-15-2024 Start: 08-03-2024 End: 08-03-2024 Start: 08-02-2024 End: 08-03-2024 Start: 01-09-2019 0.9 % sodium c hloride infusion water 1000 mg/ml irrigation solution (6 sources) Start: 08-09-2024 End: 09-13-2024 Start: 08-03-2024 End: 08-09-2024 (5 sources) Start: 08-14-2024 End: 11-12-2024 Start: 08-14-2024 End: 08-15-2024 Start: 08-12-2024 End: 08-14-2024 Start: 08-10-2024 End: 08-11-2024 Start: 08-05-2024 End: 08-10-2024 Completed/Discontinued Medications Medication Drug Class(es) Dates Sig (Normalized) Sig (Original) amoxicillin 500 mg oral capsule (2 sources) Penicillin-class Antibacterial Start: 08-02-2024 End: 10-02-2024 take 1 capsule by mouth every eight hours Amoxicillin 500 mg capsule Discontinued 500 mg PO Q8H August 02, 2024 12:00am October 02, 2024 9:42am aspirin 81 mg chewable tablet (2 sources) Platelet Aggregation Inhibitor, Nonsteroidal Anti-inflammatory Drug Start: 08-10-2024 End: 08-11-2024 Start: 08-06-2024 End: 08-09-2024 atenolol 50 mg oral tablet (20 sources) beta-Adrenergic Shea Start: 07-03-2024 End: 10-02-2024 take 1 tablet by mouth once daily Atenolol 50 mg tablet Discontinued 50 mg PO daily July 03, 2024 1:00am October 02, 2024 9:42am Start: 11-25-2022 End: 11-28-2023 take 1 tablet by mouth once daily Atenolol 50 mg tablet Active 50 mg PO daily July 03, 2024 1:00am Start: 11-30-2020 End: 01-11-2022 take 1 tablet by mouth once daily atenolol (TENORMIN) 50 mg tablet Indications: Essential hypertension, benign Take 1 tablet by mouth once daily 90 tablet 3 01/11/2022 Active Start: 11-21-2018 atenolol (TENO RMIN) 50 MG tablet Comment on above: Take 1 tablet by christ th once daily. Take 1 tablet by christ th once daily atovaquone 250 mg / proguanil hydrochloride 100 mg oral tablet (3 sources) Antimalarial, Antiprotozoal Start: 2021 End: 2021 take 1 tablet by mouth once daily atovaquone-proguani l (MALARONE) 250-100 mg per tablet Take 1 tablet by mouth once daily. Start medication 2 days prior to travel and continue for 1 week after return 30 tablet 0 10/08/2021 11/23/2021 Discontinued Comment on above: Take 1 tablet by christ once daily. Start medication 2 days prior to travel and continue for 1 week after return bisacodyl 10 mg rectal suppository (1 source) Stimulant Laxative Start: 2024 End: 2024 carvedilol 6.25 mg oral tablet (1 source) alpha-Adrenergic Shea, beta-Adrenergic Shea Start: 2024 End: 2024 cefTRIAXone 1000 mg injection (1 source) Cephalosporin Antibacterial Start: 2024 End: 2024 take 1 g intravenously every twenty-four hours chlorhexidine gluconate 1.2 mg/ml mouthwash (20 sources) Start: 2021 End: 2024 Chlorhexidine Gluconate 0.12 % mouthwash Discontinued 15 mL MUCOUS MEM TWICE A DAY July 03, 2024 1:00am August 02, 2024 12:51pm Comment on above: Use 15 mL as instruc kera twice daily. Rinse around mouth for 30 seconds then expectorate ciprofloxacin 500 mg oral tablet (1 source) Quinolone Antimicrobial Start: 2021 End: 2021 take 1 tablet by mouth twice daily as needed for diarrhea ciprofloxacin HCl (CIPRO) 500 mg tablet Take 1 tablet by mouth twice daily for 3 days. As needed for diarrhea 6 tablet 0 10/08/2021 10/11/2021 Comment on above: Take 1 tablet by christ twice daily for 3 days. As needed for diarrhea diphenhydrAMINE hydrochloride 25 mg oral tablet (1 source) Histamine-1 Receptor Antagonist Start: 2024 End: 2024 take 25 mg intragastric route every twelve hours as needed doxycycline hyclate 100 mg oral capsule (6 sources) Tetracycline-class Drug Start: 2024 End: 2024 take 1 capsule by mouth twice daily Doxycycline Hyclate 100 mg capsule Discontinued 100 mg PO TWICE A DAY July 03, 2024 1:00am October 02, 2024 9:42am Start: 07-01-2024 End: 07-31-2024 take 1 capsule by mouth twice daily doxycycline monohydrate (MONODOX) 100 mg capsule Indications: History of traveler's diarrhea Take 1 capsule by mouth two times a day for 28 days. 56 capsule 07/03/2024 07/31/2024 Active empagliflozin 10 mg oral tablet (2 sources) Sodium-Glucose Cotransporter 2 Inhibitor Start: 05-27-2022 End: 11-25-2022 take 1 tablet by mouth once daily, then take 1 tablet by mouth once daily in the morning empagliflozin (JARDIANCE) 10 mg tablet Take 1 tablet by mouth once daily. Take 1 tablet once daily in the morning 90 tablet 3 05/27/2022 11/25/2022 Discontinued Comment on above: Take 1 tablet by christ th once daily. Take 1 tablet once daily in the morning famotidine 20 mg oral tablet (3 sources) Histamine-2 Receptor Antagonist Start: 09-29-2023 End: 11-28-2023 take 1 tablet by mouth twice daily famotidine (PEPCID) 20 mg tablet Take 1 tablet by mouth two times a day. 14 tablet 0 09/29/2023 11/28/2023 Discontinued (Course of therapy completed) fluconazole 100 mg oral tablet (1 source) Azole Antifungal Start: 09-09-2024 Diflucan 100 mg oral tablet Dose : 100 mg = 1 tab(s), PEG, qDay, 0 Refill(s), 76 Start Date: 09/09/24 Status: Ordered Repeat number: 1 fluticasone propionate 0.05 mg/actuat metered dose nasal spray (1 source) Corticosteroid Start: 08-10-2024 End: 08-15-2024 glipiZIDE er 10 mg 24 hr extended release oral tablet (15 sources) Sulfonylurea Start: 11-30-2020 End: 05-27-2022 take 1 tablet by mouth once daily glipiZIDE (GLUCOTROL XL) 10mg 24 hr tablet Indications: Type 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, unspecified CKD stage, unspecified whether taker off braker machine insulin use (HCC) Take 1 tablet by mouth once daily 90 tablet 3 01/11/2022 05/27/2022 Discontinued Start: 10-24-2018 glipiZIDE (GLU COTROL XL) 10 MG extended release tablet Take 10 mg by mouth 0 10/24/2018 Active Comment on above: Take 1 tablet by christ th once daily. Take 1 tablet by christ once daily insulin, regular, human 100 unt/ml injectable solution (3 sources) Insulin Start: 08-04-2024 End: 08-15-2024 2 ml ketorolac tromethamine 30 mg/ml injection (1 source) Nonsteroidal Anti-inflammatory Drug, Cyclooxygenase Inhibitor Start: 03-02-2022 End: 03-02-2022 keTORolac 60 mg injection (TORADOL) 50 ml magnesium sulfate 80 mg/ml injection (1 source) Start: 08-02-2024 End: 08-06-2024 melatonin 3 mg oral tablet (2 sources) Start: 08-09-2024 End: 08-15-2024 Start: 08-08-2024 End: 08-09-2024 200 ml niCARdipine hydrochloride 0.2 mg/ml injection (1 source) Dihydropyridine Calcium Channel Shea Start: 08-03-2024 End: 08-04-2024 2 ml ondansetron 2 mg/ml injection (2 sources) Serotonin-3 Receptor Antagonist Start: 08-03-2024 End: 08-15-2024 take 4 mg intravenously every four hours as needed Start: 08-03-2024 End: 08-03-2024 24 hr oxybutynin chloride 5 mg extended release oral tablet (13 sources) Cholinergic Muscarinic Antagonist Start: 05-31-2024 End: 10-02-2024 take 1 tablet by mouth once daily Oxybutynin Chloride 5 mg tablet extended release 24hr Discontinued 5 mg PO daily July 03, 2024 1:00am October 02, 2024 9:42am End: 08-06-2024 penicillin v potassium 500 m g oral tablet (1 source) Start: 08-03-2024 End: 08-08-2024 polyethylene glycol 3350 170 00 mg powder for oral solution (3 sources) Osmotic Laxative Start: 08-09-2024 End: 08-15-2024 Start: 08-03-2024 End: 08-09-2024 predniSONE 10 mg oral tablet (4 sources) Start: 10-10-2023 End: 11-28-2023 predniSONE (DELTASONE) 10 mg tablet Take 4 tabs daily for 3 days, then 2 tabs daily for 3 days, then 1 tab daily for 3 days with food. 21 tablet 0 10/10/2023 11/28/2023 Discontinued (Course of therapy completed) Start: 03-02-2022 End: 03-11-2022 predniSONE (DELTASONE) 10 mg tablet Indications: Acute midline low back pain without sciatica Take 4 tabs daily for 3 days, then 2 tabs daily for 3 days, then 1 tab daily for 3 days with food. 21 tablet 0 03/02/2022 03/11/2022 Active Comment on above: Take 4 tabs daily fo r 3 days, then 2 tabs daily for 3 days, then 1 tab daily for 3 days with food. ramipril 10 mg oral capsule (20 sources) Angiotensin Converting Enzyme Inhibitor Start: 3 End: 5 take 2 capsules by mouth once daily Ramipril 10 mg capsule Discontinued 20 mg PO daily July 03, 2024 1:00am August 02, 2024 12:52pm Start: 11-30-2020 End: 01-11-2022 take 2 capsules by mouth once daily ramipril (ALTACE) 10 mg capsule Indications: Essential hypertension, benign Take 2 capsules by mouth once daily 180 capsule 3 01/11/2022 Active Start: 10-24-2018 ramipril (LEANNA CE) 10 MG capsule Take 20 mg by mouth 0 10/24/2018 Active Comment on above: Take 2 capsules by m outh once daily. Take 2 capsules by m outh once daily sennosides, [facility] 8.6 mg oral tablet (2 sources) Start: 08-09-2024 End: 08-15-2024 Start: 08-04-2024 End: 08-09-2024 triamcinolone acetonide 0.41366 mg/mg topical ointment (3 sources) Corticosteroid Start: 09-29-2023 End: 11-28-2023 triamcinolone (KENALOG) 0.025 % ointment Apply to affected area three times a day. 80 g 1 09/29/2023 11/28/2023 Discontinued (Course of therapy completed) (1 source) Start: 08-06-2024 End: 08-06-2024 (9 sources) Start: 08-04-2024 End: 08-15-2024 take 10 mg intravenously every hour as needed [Order 1 Start] Name: hydrALAZINE (APRESOLINE) injection 10 mg Signed Summary: 10 mg, Intravenous, EVERY 1 HOUR NEEDED, Starting on 08/04/24 at 1154, Until Diane 08/15/24 at 1259, SBP > 160 mmHg with HR 90). [Order 1 End] [Order 2 Start] Name: hydrALAZINE (APRESOLINE) injection 20 mg Signed Summary: 20 mg, Intravenous, EVERY 1 HOUR NEEDED, Starting on 08/04/24 at 1154, Until Diane 08/15/24 at 1259, SBP > 160 mmHg with HR 90). Decrease back to lower dose if patient has adverse effects, or no PRN used in previous 3 hours. [Order 2 End] Start: 08-04-2024 End: 08-15-2024 take 10 mg intravenously every hour as needed [Order 1 Start] Name: Labetalol (NORMODYNE) injection 10 mg Signed Summary: 10 mg, Intravenous, EVERY 1 HOUR NEEDED, Starting on 08/04/24 at 1153, Until Diane 08/15/24 at 1259, SBP > 160 mmHg with HR >60 bpm, Use as initial dose. Higher dose may be administered if lower dose was previously documented as ineffective 10 minutes after administration and did not result in adverse effects (HR 160 mmHg with HR >60 bpm, Higher dose may be administered if lower dose was previously documented as ineffective 10 minutes after administration and did not result in adverse effects (HR<60). Decrease back to lower dose if patient has adverse effects, or no PRN used in previous 3 hours. For vials: labetalol should be treated as a SINGLE USE VIAL. Discard remaining contents after one use. [Order 2 End] Start: 08-04-2024 End: 08-04-2024 Start: 08-03-2024 End: 08-15-2024 apply 7.5 g by subcutaneous injection once [Order 1 Start] Name: Insulin regular (HUMULIN R;NOVOLIN R) injection Signed Summary: Subcutaneous, EVERY 6 HOURS, First dose (after last modification) on 08/03/24 at 1800, Until Discontinued, Correction factor parameters most appropriate for NPO or tube feeding patients: Blood glucose under 60 = call H.O.; 151 - 200 = 4 units; 201 - 250 = 6 units; 251 - 300 = 8 units; 301 - 350 = 10 units; 351 - 400 = 12 units; Over 400 = call H.O. An initial vial will be sent from the pharmacy without prompting. Replacement vials require a MAR request when needed. Call pharmacy to coordinate expedited delivery if an emergent dose is needed for hyperglycemia treatment. [Order 1 End] [Order 2 Start] Name: BLOOD GLUCOSE (POC DEVICE) Signed Summary: Routine, EVERY 6 HOURS, First occurrence on 08/03/24 at 1800, If any Blood Glucose (POC) is greater than 300mg/dl, treat per correction factor orders; and repeat Blood Glucose (POC) in 2 hours if second blood glucose is greater than 200mg/dl, then notify housesmith. [Order 2 End] [Order 3 Start] Name: BLOOD GLUCOSE (POC DEVICE) Signed Summary: Routine, PRN, Starting on 08/03/24 at 1300, Until Specified, For all Blood Glucose LESS THAN 80 mg/dL, treat per Hypoglycemia in Non- Adults Clinical Practice Guideline (CPG) and recheck glucose 15 min after treatment. Repeat per CPG until glucose GREATER THAN 80 mg/dL. Once glucose IS GREATER THAN 80 mg/dL, recheck Blood Glucose every 1 hour x2, then resume as previously ordered. For Blood Glucose LESS THAN 80 mg/dL on admission OR LESS than 45 mg/dL at any time, obtain POC Blood Glucose every 4 hours for 6 occurrences AFTER treating per CPG. Obtain blood glucose for symptoms of hypoglycemia: sweating, shaking, fatigue, rapid pulse, slow thinking & dizziness. Notify physician w/results. Obtain blood glucose for symptoms of hyperglycemia: excessive thirst, blurred vision, excessive urination & tiredness. Notify physician w/results. If patient NPO, obtain POC Blood Glucose prior to administration of any insulin products. [Order 3 End] [Order 4 Start] Name: COMMUNICATION ORDER FOR NURSING CARE: For Blood Glucose LESS THAN 80 mg/dl Signed Summary: Routine, CONTINUOUS, Starting on 08/03/24 at 1301, Until Specified, For Blood Glucose LESS THAN 80 mg/dl follow Hypoglycemia in Non- Adults Clinical Practice Guideline (CPG) [Order 4 End] [Order 5 Start] Name: Dextrose 50% injection 7.5-25 g Signed Summary: 7.5-25 g, Intravenous, ADMINISTER DIRECTED, Starting on 08/03/24 at 1300, Until Diane 08/15/24 at 1259, Blood glucose <80 mg/dL, For patients who are not alert, are NPO, or are on IV insulin infusion administer as directed per Hypoglycemia in Non- Adults Clinical Practice Guideline. For Blood Glucose: 60-79 mg/dL administer 7.5 gm (15ml); 45-59 mg/dL administer 12.5 gm (25ml); less than 45mg/dL administer 25gm (50ml). ++ If additional dextrose 50% needed, contact pharmacy or obtain from [facility] cart ++ [Order 5 End] [Order 6 Start] Name: glucose (GLUTOSE) 40 % oral gel 1-2 Tube Signed Summary: 1-2 Tube, Oral, ADMINISTER DIRECTED, Starting on 08/03/24 at 1300, Until Diane 08/15/24 at 1259, Blood glucose <80 mg/dL, For patients who are alert, able to tolerate PO intake and with intact cognitive status administer as directed per Hypoglycemia in Non- Adults Clinical Practice Guideline. For Blood Glucose: 60-79 mg/dL administer 1 tube; 45-59 mg/dl administer 1.5 tubes; less than 45 mg/dL administer 2 tubes. Each tube of 37.5g delivers 15g of carbohydrate. [Order 6 End] [Order 7 Start] Name: NOTIFY PHYSICIAN, Blood Glucose LESS THAN 80 mg/dl Signed Summary: Routine, CONTINUOUS, Starting on 08/03/24 at 1301, Until Specified, Who to Notify: Residential Treatment Specialist, For all Blood Glucose LESS THAN 80 mg/dl, notify Residential Treatment Specialist after treatment per Hypoglycemia in Non- Adults Clinical Practice Guideline [Order 7 End] Start: 08-03-2024 End: 08-04-2024 take 10 mg intravenously every hour as needed Start: 08-03-2024 End: 08-04-2024 take 10 mg intravenously every hour as needed Start: 08-03-2024 End: 08-03-2024 take 3 g intravenously every twelve hours Start: 08-03-2024 End: 08-03-2024 Start: 08-02-2024 End: 08-03-2024 take 10 mg intravenously every hour as needed (1 source) Start: 08-03-2024 End: 08-05-2024 (1 source) Start: 08-02-2024 End: 08-02-2024 Problems Active Problems Problem Classification Problem Date Documented Da te Episodic/Chronic Acute cerebrovascular disease (12 sources) Ischemic stroke; Translations: [Cerebral infarction due to unspecified occlusion or stenosis of right middle cerebral artery] Onset: 5 08-02-2024 Chronic Administrative/social admission (1 source) Need for assistance with personal care; Translations: [Need for assistance with personal care] Onset: 5 Episodic Allergic reactions (1 source) Allergic contact dermatitis caused by plant material; Translations: [Allergic contact dermatitis due to plants, except food] 09-29-2023 Episodic Anal and rectal conditions (2 sources) Rectal polyp; Translations: [Rectal polyp] 01-09-2019 Episodic Cancer of rectum and anus (1 source) Malignant tumor of rectum; Translations: [Rectal cancer] Onset: 9 03-06-2019 Chronic Cancer of rectum and anus (1 source) History of malignant neoplasm of rectum; Translations: [History of rectal cancer] 04-16-2019 Episodic Cardiac dysrhythmias (11 sources) Irregular heart beat; Translations: [Cardiac arrhythmia, unspecified] Onset: 5 05-31-2024 Chronic Chronic kidney disease (20 sources) Chronic kidney disease stage 3; Translations: [CKD (chronic kidney disease) stage 3, GFR 30-59 ml/min] Onset: 4 11-26-2013 Chronic Chronic kidney disease (1 source) Chronic kidney disease; Translations: [Chronic kidney disease, stage 3a (HCC)] Onset: 4 Coma; stupor; and brain damage (1 source) Somnolence; Translations: [Somnolence] Onset: 5 Episodic Coronary atherosclerosis and other heart disease (4 sources) Coronary arteriosclerosis; Translations: [Atherosclerotic heart disease of [place] coronary artery without angina pectoris] Onset: 5 07-03-2024 Chronic Diabetes mellitus with complications (20 sources) Type 2 diabetes mellitus; Translations: [Type 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] Onset: 4 Resolved: 1 11-03-2020 Chronic Diabetes mellitus without complication (17 sources) Diabetes mellitus; Translations: [Type 2 diabetes mellitus without complications] Onset: 5 Resolved: 4 11-26-2013 Chronic Disorders of lipid metabolism (20 sources) Hyperlipidemia; Translations: [Hyperlipidemia, unspecified] Onset: 4 Resolved: 4 11-26-2013 Chronic Essential hypertension (20 sources) Benign essential hypertension; Translations: [Essential (primary) hypertension] Onset: 6 07-08-2005 Chronic Fluid and electrolyte disorders (1 source) Hypo-osmolality and hyponatremia; Translations: [Hypo-osmolality and hyponatremia] Onset: 5 Episodic Genitourinary symptoms and ill-defined conditions (1 source) Urinary incontinence; Translations: [Unspecified urinary incontinence] 05-31-2024 Chronic Hypertension with complications and secondary hypertension (13 sources) Chronic kidney disease stage 3 due to hypertension; Translations: [Hypertensive chronic kidney disease with stage 1 through stage 4 chronic kidney disease, or unspecified chronic kidney disease] Onset: 1 Resolved: 1 11-05-2020 Chronic Immunizations and screening for infectious disease (1 source) Vaccination needed; Translations: [Encounter for immunization] Episodic Late effects of cerebrovascular disease (4 sources) 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; Translations: [Facial weakness following nontraumatic intracerebral hemorrhage] Onset: 5 Chronic Malaise and fatigue (2 sources) Other malaise; Translations: [Weakness] Onset: 5 Episodic Mycoses (1 source) Candidal stomatitis; Translations: [Candidal stomatitis] Onset: 5 Episodic Nausea and vomiting (1 source) Nausea; Translations: [Nausea] Onset: 5 Episodic Osteoarthritis (4 sources) Osteoarthritis; Translations: [Unspecified osteoarthritis, unspecified site] Onset: 5 Chronic Other aftercare (2 sources) 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; Translations: [longterm (current) use of anticoagulants] 08-02-2024 Episodic Other aftercare (1 source) 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; Translations: [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] Onset: 5 Episodic Other aftercare (1 source) longterm (current) use of anticoagulants; Translations: [longterm (current) use of anticoagulants] Onset: 5 Episodic Other aftercare (1 source) longterm (current) use of oral hypoglycemic drugs; Translations: [longterm (current) use of oral hypoglycemic drugs] Onset: Episodic Other circulatory disease (1 source) Hypotension, unspecified; Translations: [Hypotension, unspecified] Onset: Episodic Other connective tissue disease (1 source) Pain in left arm; Translations: [Pain in left arm] Onset: 5 Episodic Other diseases of bladder and urethra (1 source) Overactive bladder; Translations: [Overactive bladder] Onset: Chronic Other diseases of kidney and ureters (4 sources) Kidney disease; Translations: [Disorder of kidney and ureter, unspecified] Onset: 5 07-03-2024 Episodic Other diseases of kidney and ureters (2 sources) Chronic renal insufficiency; Translations: [Disorder of kidney and ureter, unspecified] 08-02-2024 Episodic Other eye disorders (2 sources) H/O: Bilateral cataract extraction; Translations: [Cataract extraction status, right eye] 07-03-2024 Episodic Other gastrointestinal disorders (1 source) Gastrostomy status; 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 Other gastrointestinal disorders (1 source) Dysphagia; Translations: [Dysphagia, unspecified] Onset: Episodic Other gastrointestinal disorders (1 source) Dysphagia, unspecified; Translations: [Dysphagia, unspecified] Onset: Episodic Other gastrointestinal disorders (1 source) Diarrhea, unspecified; Translations: [Diarrhea, unspecified] Onset: 5 Episodic Other infections; including parasitic (2 sources) H/O: gastrointestinal disease; Translations: [Personal history of other infectious and parasitic diseases] 07-01-2024 Episodic Other inflammatory condition of skin (20 sources) Scalp psoriasis; 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, unspecified] Onset: 4 11-26-2013 Chronic Other injuries and conditions due to external causes (1 source) Unspecified injury of head, initial encounter; Translations: [Unspecified injury of head, initial encounter] Onset: 5 Episodic Other nervous system disorders (1 source) Slurred speech; Translations: [Slurred speech] Onset: 5 Episodic Other nervous system disorders (1 source) Unspecified abnormalities of gait and mobility; Translations: [Unspecified abnormalities of gait and mobility] Onset: 5 Episodic Other nervous system disorders (1 source) Other symptoms and signs involving cognitive functions and awareness; Translations: [Other symptoms and signs involving cognitive functions and awareness] Onset: 5 Episodic Other skin disorders (1 source) Eruption; Translations: [Rash and other nonspecific skin eruption] 10-10-2023 Episodic Other skin disorders (1 source) Xerosis cutis; Translations: [Xerosis cutis] Onset: 5 Episodic Other upper respiratory infections (2 sources) Upper respiratory infection; Translations: [Acute upper respiratory infection, unspecified] 08-02-2024 Episodic Residual codes; unclassified (3 sources) Amnesia; Translations: [Other amnesia] Episodic Residual codes; unclassified (3 sources) Edema of left lower leg; Translations: [Localized edema] Episodic Residual codes; unclassified (1 source) Prevention status; Translations: [Need for malaria prophylaxis] 06-25-2024 Episodic Spondylosis; intervertebral disc disorders; other back problems (1 source) Acute low back pain; Translations: [Acute midline low back pain without sciatica] Episodic Thyroid disorders (20 sources) Simple goiter; Translations: [Nontoxic diffuse goiter] Onset: 7 07-08-2005 Chronic Unclassified (2 sources) CVA Onset: 5 Unclassified (1 source) Need for malaria prophylaxis; Translations: [Need for malaria prophylaxis] Onset: 5 Unclassified (1 source) Cough, unspecified; Translations: [Cough, unspecified] Onset: 5 Past or Other Problems Problem Classification Problem Date Documented Da te Episodic/Chronic Other non-traumatic joint disorders (20 sources) Pain in left knee; Translations: [Pain in joint, lower leg] Onset: 11-13-2020 11-13-2020 Episodic Other non-traumatic joint disorders (20 sources) Acute ankle pain; Translations: [Pain in left ankle and joints of left foot] Onset: 11-13-2020 11-13-2020 Episodic Other non-traumatic joint disorders (20 sources) Chronic ankle pain; Translations: [Pain in left ankle and joints of left foot] Onset: 11-13-2020 11-13-2020 Episodic Results Test Name Value Interpretation Reference Range Facility 12 Lead EKG performed by [facility] on 10-02-2024 12 Lead EKG performed by [facility] [address] [place] [address] 12 Lead EKG performed by [facility] 10/02/24920 MR#: [id number] Acct: [id number] Name: LINDSAY ACUNA Rep #: [id number] : 1945 78 From: Mj Benavides MD Attending Dr: Dr. Mj Benavides MD Status: DEP A MB Ordering Dr: Mj Benavides MD Date: 10/02/24 Location: [facility] Sex: F C Admitted: BMS/12 Lead EKG performed by [facility] ECG Report Interpretation ---Atrial fibrillation -irregular conduction -Old anterior infarct. ABNORMAL Electronically signed on 10/02/2024 at 16:06 by Mj Benavides [employer] Version [id number] 10/02/24 1608 Date Mj Benavides MD CC: Dr. Kameron Caruso MD Date Dictated: 10/02/24920 Date Transcribed: 10/02/24920 Adolescent Psychiatrist: [place] Signed Normal [facility] Cardiology Visit Reporton Cardiology Visit Report [facility] [address] [place] [address] OFFICE VISIT Date of Service: 10/02/24 MR#: [id number] Acct: [id number] Name: LINDSAY ACUNA Rep #: [id number] : 1945 Provider: Dr. Mj Benavides MD Age/Sex: 78/F Location: [facility] Status: Signed HPI HPI History of Present Illness Details: 78-year-old lady with a history of paroxysmal atrial fibrillation which was new onset and history of hypertension. She had been seen in the office in May 2024 was noted to be in atrial fibrillation and it appears was on atenolol, Lipitor, ramipril, and Eliquis at a lower dose. She was taking 2.5 mg Eliquis. It appears that somewhere in the interim in July 2024 she presented to the emergency room with aphasia and was noted to have evidence of a right-sided MCA stroke. It appeared that she was too late for TNK but she was probably life flighted to a tertiary care institution where it is not clear whether she underwent any procedures. However her medications have been changed now she is currently domiciled in a intermediate. Her previous echocardiogram which was performed in May 2024 demonstrated ejection fraction of 62% her thyroid profile demonstrated total cholesterol 193 HDL of 44 LDL of 123. At this particular time she appears to be verbal but somewhat hesitating she has an irregular irregular heart rhythm and her EKG demonstrates atrial fibrillation with a rate of 101 bpm. Intake Vital Signs 08/02/24 12:46 10/02/24 09:21 Height 5 ft 6 in 5 ft 6 in BP 111/71 Blood Pressure Location Lt brachial Position Sitting Respiration 16 Pulse 77 Pulse Source Monitor Comment unable to weight d/t W/C bound Intake [facility] Required: No Accompanied by: Significant Other Is patient in pain?: No Allergies benzocaine Allergy (Unknown, Verified 08/02/24 12:45) Rash perfume Allergy (Unknown, Verified 08/02/24 12:45) Shortness of breath Sulfa (Sulfonamide Antibiotics) Allergy (Unknown, Verified 08/02/24 12:45) Unknown cocaine Adverse Reaction (Unknown, Verified 08/02/24 12:45) Inverted T waves Medications ???Medication ???Instructions ???Recorded ???Confirmed ???Type atorvastatin 80 mg tablet 80 mg PO QHS 07/03/24 10/02/24 His tory glimepiride 2 mg tablet 2 mg PO QAM 07/03/24 10/02/24 Hist ory levothyroxine 75 mcg tablet 75 mcg PO 6XW 07/03/24 10/02/24 [place] apixaban 2.5 mg tablet (Eliquis) 5 mg PO BID 10/02/24 10/02/24 Hist ory donepezil 5 mg tablet 5 mg PO QDAY 10/02/24 10/02/24 His tory metformin 500 mg tablet,extended 850 mg PO BID 10/02/24 10/02/24 Hi story release 24 hr methylphenidate HCl 5 mg tablet 5 mg PO QAM 10/02/24 10/02/24 Hist ory metoprolol tartrate 50 mg tablet 50 mg PO QHS #90 tabs 10/02/24 Rx metoprolol tartrate 50 mg tablet 100 mg PO QDAY 10/02/24 10/02/24 H istory Have you fallen in the past year?: Yes PFSH Medical History Acute ischemic right MCA stroke Paroxysmal atrial fibrillation with RVR Coronary artery disease Essential hypertension Hyperlipidemia Kidney disease Type 2 diabetes mellitus without complication Goiter Diverticulosis Surgical History History of cyst of breast History of History of bilateral cataract extraction History of open reduction and internal fixation (ORIF) procedure History of colonoscopy ( 2021) Family History Mother Diabetes Hypertension Psychiatric disorder Grandmother Cancer Sister Thyroid disorder Social History Smoking Status: Never smoker alcohol intake: never substance use type: does not use ROS Const Const: Positive for fatigue; Negative for weakness, headache(s), daytime sleepiness or difficulty sleeping ENT ENT: Negative for headache(s), dizziness or Nosebleed/epistaxis Cardio Chest Pain: No Palpitations: No Edema: None Resp Respiratory: Negative for SOB with activity, SOB at rest, SOB orthopnea SOB lying down or Cough GI GI: Negative nausea, vomiting or heartburn Neuro Neuro: Negative for dizziness, lightheadedness, near syncope, headache(s) or weakness Endo Endo: Positive for fatigue Cardiology Exam Const Appearance: cooperative, healthy appearing, no acute distress, well developed and well groomed Nutritional Appearance: average body habitus and well nourished Orientation: alert, awake and oriented x3 Head Head: normal to inspection, normocephalic and atraumatic Ears: hearing grossly normal bilaterally and external ears normal Nose: external nose normal, nares normal, nasal (more content not included)... Normal [facility] Absolute lymphocyte countOrd ered By: Safia Ruelas on 10-01-2024 Lymphocytes Auto (Unsp spec) [#/Vol] 2.45 10*3/uL 0.83-4.51 [facility] Absolute neutrophil countOrd ered By: sherry Ruelas on 10-01-2024 Neutrophils (Bld) [#/Vol] 6.5 10*3/uL 2.0-7.7 [facility] Anion gap in Serum or Plasma Ordered By: Safia Ruelas on 10-01-2024 Anion gap [Moles/Vol] 12 mmol/L 5-15 [facility] Automated lymphocyte count a s percentage of total leukocytesOrdered By: Safia Ruelas on 10-01-2024 Lymphocytes/100 WBC Auto (Unsp spec) 23.1 % 19-41 [facility] BUN/creatinine ratioOrdered By: jean marieclyoskye Ruelas on 10-01-2024 Urea nitrogen/Creatinine [Mass ratio] 24.9 mg/mg High 10-20 [facility] Basophil percentageOrdered B y: Safia Ruelas on 10-01-2024 Basophils/100 WBC (Bld) 0.5 % 0-1 [facility] Carbon dioxide, total [Moles /volume] in Central venous bloodOrdered By: Safia Ruelas on 10-01-2024 CO2 [Moles/Vol] 24.4 mmol/L 21.0-32.0 [facility] Chloride assayOrdered By: sherry Ruelas on 10-01-2024 Chloride [Moles/Vol] 99 mmol/L 98-108 [facility] Eosinophil percentageOrdered By: sherry Ruelas on 10-01-2024 Eosinophils/100 WBC (Bld) 2.0 % 0-5 [facility] Erythrocyte distribution wid th ratioOrdered By: Safia Ruelas on 10-01-2024 Erythrocyte distribution width (RBC) [Ratio] 13.5 % 11.6-14.6 [facility] Erythrocyte distribution wid th standard deviationOrdered By: Safia Ruelas on 10-01-2024 Erythrocyte distribution width (RBC) [Ratio] 46.2 fl High 35.1-43.9 [facility] Glomerular filtration rate ( GFR) estimation/1.73 sq m using serum, plasma, or whole bOrdered By: Safia Ruelas on 10-01-2024 GFR/1.73 sq M.predicted among non-blacks MDRD (S/P/Bld) [Vol rate/Area] 63 mL/min/{1.73_m2} >60 [facility] Comment on above: mL/min/1.73m2 CKD-EP I Creatinine Equation (2020) Hematocrit Auto (Bld) [Volum e fraction]Ordered By: Safia Ruelas on 10-01-2024 Hematocrit (Bld) [Volume fraction] 38.7 % 37-47 [facility] Hemoglobin measurementOrdere d By: Safia Ruelas on 10-01-2024 Hemoglobin (Bld) [Mass/Vol] 12.5 g/dL 12.0-15.0 [facility] Immature granulocytes/100 WB C Auto (Bld)Ordered By: Safia Ruelas on 10-01-2024 Immature granulocytes/100 WBC (Bld) 0.800 % 0.0-0.9 [facility] Comment on above: IG% - Immature Granu locytes (promyelocytes, myelocytes and metamyelocytes) > 1% indicates that a LEFT SHIFT is Present. MCV (mean corpuscular volume ) determinationOrdered By: Safia Ruelas on 10-01-2024 MCV (RBC) [Entitic vol] 93.3 fL 81-99 [facility] Mean corpuscular hemoglobin (MCH) determinationOrdered By: Safia Ruelas 10-01-2024 MCH (RBC) [Entitic mass] 30.1 pg 27.0-32.0 [facility] Mean corpuscular hemoglobin concentration (MCHC) determinationOrdered By: Safia Ruelas 10-01-2024 MCHC (RBC) [Mass/Vol] 32.3 g/dL 32-36 [facility] Mean platelet volume determi nationOrdered By: Safia Cheobonimelanie on 10-01-2024 Platelet mean volume (Bld) [Entitic vol] 11.7 fL 6.2-12.0 [facility] Monocyte percentageOrdered B y: Safia Cheobonimelanie on 10-01-2024 Monocytes/100 WBC (Bld) 12.7 % High 0-10 [facility] Neutrophil percentageOrdered By: Balbirjean mariedesireeskye Griderbonimelanie on 10-01-2024 Neutrophils/100 WBC (Bld) 60.9 % 47-70 [facility] Nucleated red blood cell per centageOrdered By: Balbirjean mariejosé antonio Cheobonimelanie on 10-01-2024 Nucleated RBC/100 WBC (Bld) [Ratio] 0 % 0-5 [facility] Platelet countOrdered By: Balbir randallskye Griderbonimelanie on 10-01-2024 Platelets (Bld) [#/Vol] 371 10*3/uL 150-450 [facility] Potassium measurement (mass/ volume)Ordered By: Safia Ruelsa on 10-01-2024 Potassium (Unsp spec) [Mass/Vol] 4.2 mmol/L 3.3-5.1 [facility] RBC Auto (Bld) [#/Vol]Ordere d By: Leonidesdesireeskye Griderbonimelanie on 10-01-2024 RBC (Bld) [#/Vol] 4.15 10*6/uL Low 4.2-5.4 [facility] Serum creatinine measurement (mass/volume)Ordered By: Safia Ruelas on 10-01-2024 Creatinine [Mass/Vol] 0.93 mg/dL 0.70-1.20 [facility] Serum glucose measurement (m ass/volume)Ordered By: Safia Ruelas on 10-01-2024 Glucose [Mass/Vol] 93 mg/dL 70-99 [facility] Serum or plasma calcium dayna urement (mass/volume)Ordered By: Safia Ruelas on 10-01-2024 Calcium [Mass/Vol] 9.5 mg/dL 7.6-11.0 [facility] Serum or plasma urea nitroge n measurement (mass/volume)Ordered By: Balbirjean mariedesireeskye Enricomelanie on 10-01-2024 Urea nitrogen [Mass/Vol] 23 mg/dL High 4-19 [facility] Sodium levelOrdered By: Leonides Westonmelanie on 10-01-2024 Sodium [Moles/Vol] 135 mmol/L 133-145 [facility] White blood cell (WBC) count Ordered By: Balbirjean mariejosé antonio Cheoquyen on 10-01-2024 WBC (Bld) [#/Vol] 10.6 10*3/uL 4.4-11.0 [facility] Clostridium difficile detect ion by polymerase chain reactionOrdered By: Balbirjean mariedesireeskye Griderbonimelanie on 09-29-2024 C. difficile DNA CHUCKY+probe Ql (Unsp spec) [facility] Absolute lymphocyte countOrd ered By: Safia Cheoquyen on 09-24-2024 Lymphocytes Auto (Unsp spec) [#/Vol] 2.72 10*3/uL 0.83-4.51 [facility] Absolute neutrophil countOrd ered By: Safia Ruelas on 09-24-2024 Neutrophils (Bld) [#/Vol] 6.3 10*3/uL 2.0-7.7 [facility] Anion gap in Serum or Plasma Ordered By: Balbirjean mariedesireeskye Griderbonimelanie on 09-24-2024 Anion gap [Moles/Vol] 12 mmol/L 5-15 [facility] Automated lymphocyte count a s percentage of total leukocytesOrdered By: Balbirjean mariedesireeskye Griderbonimelanie on 09-24-2024 Lymphocytes/100 WBC Auto (Unsp spec) 26.3 % 19-41 [facility] BUN/creatinine ratioOrdered By: Safia Cheoquyen on 09-24-2024 Urea nitrogen/Creatinine [Mass ratio] 36.4 mg/mg High 10-20 [facility] Basophil percentageOrdered B y: Bandarskye Griderbonimelanie on 09-24-2024 Basophils/100 WBC (Bld) 0.7 % 0-1 [facility] Carbon dioxide, total [Moles /volume] in Central venous bloodOrdered By: Balbirjean mariedesireeskye Griderbonimelanie on 09-24-2024 CO2 [Moles/Vol] 24.1 mmol/L 21.0-32.0 [facility] Chloride assayOrdered By: Balbir Ruelas on 09-24-2024 Chloride [Moles/Vol] 100 mmol/L 98-108 [facility] Eosinophil percentageOrdered By: Safia Ruelas on 09-24-2024 Eosinophils/100 WBC (Bld) 2.7 % 0-5 [facility] Erythrocyte distribution wid th ratioOrdered By: Safia Ruelas on 09-24-2024 Erythrocyte distribution width (RBC) [Ratio] 13.6 % 11.6-14.6 [facility] Erythrocyte distribution wid th standard deviationOrdered By: Safia Ruelas on 09-24-2024 Erythrocyte distribution width (RBC) [Ratio] 47.1 fl High 35.1-43.9 [facility] Glomerular filtration rate ( GFR) estimation/1.73 sq m using serum, plasma, or whole bOrdered By: Safia Ruelas on 09-24-2024 GFR/1.73 sq M.predicted among non-blacks MDRD (S/P/Bld) [Vol rate/Area] 62 mL/min/{1.73_m2} >60 [facility] Comment on above: mL/min/1.73m2 CKD-EP I Creatinine Equation (2020) Hematocrit Auto (Bld) [Volum e fraction]Ordered By: Safia Ruelas 09-24-2024 Hematocrit (Bld) [Volume fraction] 41.2 % 37-47 [facility] Hemoglobin measurementOrdere d By: Safia Ruelas on 09-24-2024 Hemoglobin (Bld) [Mass/Vol] 13.0 g/dL 12.0-15.0 [facility] Immature granulocytes/100 WB C Auto (Bld)Ordered By: Safia Ruelas 09-24-2024 Immature granulocytes/100 WBC (Bld) 1.000 % High 0.0-0.9 [facility] Comment on above: IG% - Immature Granu locytes (promyelocytes, myelocytes and metamyelocytes) > 1% indicates that a LEFT SHIFT is Present. MCV (mean corpuscular volume ) determinationOrdered By: Safia Ruelas on 09-24-2024 MCV (RBC) [Entitic vol] 94.3 fL 81-99 [facility] Mean corpuscular hemoglobin (MCH) determinationOrdered By: Balbirsherry Ruelas on 09-24-2024 MCH (RBC) [Entitic mass] 29.7 pg 27.0-32.0 [facility] Mean corpuscular hemoglobin concentration (MCHC) determinationOrdered By: Safia Ruelas on 09-24-2024 MCHC (RBC) [Mass/Vol] 31.6 g/dL Low 32-36 [facility] Mean platelet volume determi nationOrdered By: Safia Ruelas on 09-24-2024 Platelet mean volume (Bld) [Entitic vol] 11.3 fL 6.2-12.0 [facility] Monocyte percentageOrdered B y: Safia Ruelas on 09-24-2024 Monocytes/100 WBC (Bld) 8.9 % 0-10 [facility] Neutrophil percentageOrdered By: Safia Ruelas on 09-24-2024 Neutrophils/100 WBC (Bld) 60.4 % 47-70 [facility] Nucleated red blood cell per centageOrdered By: Safia Ruelas on 09-24-2024 Nucleated RBC/100 WBC (Bld) [Ratio] 0 % 0-5 [facility] Platelet countOrdered By: Balbir jean mariejosé antonio Ruelas on 09-24-2024 Platelets (Bld) [#/Vol] 441 10*3/uL 150-450 [facility] Potassium measurement (mass/ volume)Ordered By: Safia Ruelas on 09-24-2024 Potassium (Unsp spec) [Mass/Vol] 4.3 mmol/L 3.3-5.1 [facility] RBC Auto (Bld) [#/Vol]Ordere d By: Safia Ruelas on 09-24-2024 RBC (Bld) [#/Vol] 4.37 10*6/uL 4.2-5.4 [facility] Serum creatinine measurement (mass/volume)Ordered By: Safia Ruelas on 09-24-2024 Creatinine [Mass/Vol] 0.93 mg/dL 0.70-1.20 [facility] Serum glucose measurement (m ass/volume)Ordered By: Safia Ruelas on 09-24-2024 Glucose [Mass/Vol] 48 mg/dL Low 70-99 [facility] Serum or plasma calcium dayna urement (mass/volume)Ordered By: Safia Ruelas on 09-24-2024 Calcium [Mass/Vol] 9.5 mg/dL 7.6-11.0 [facility] Serum or plasma urea nitroge n measurement (mass/volume)Ordered By: Safia Ruelas on 09-24-2024 Urea nitrogen [Mass/Vol] 34 mg/dL High 4-19 [facility] Sodium levelOrdered By: Leonides jiménezradha Jessenia on 09-24-2024 Sodium [Moles/Vol] 136 mmol/L 133-145 [facility] White blood cell (WBC) count Ordered By: Safia Ruelas on 09-24-2024 WBC (Bld) [#/Vol] 10.4 10*3/uL 4.4-11.0 [facility] Absolute lymphocyte countOrd ered By: Safia Ruelas on 09-17-2024 Lymphocytes Auto (Unsp spec) [#/Vol] 2.52 10*3/uL 0.83-4.51 [facility] Absolute neutrophil countOrd ered By: Safia Ruelas on 09-17-2024 Neutrophils (Bld) [#/Vol] 5.8 10*3/uL 2.0-7.7 [facility] Anion gap in Serum or Plasma Ordered By: Safia Ruelas on 09-17-2024 Anion gap [Moles/Vol] 12 mmol/L 5-15 [facility] Automated lymphocyte count a s percentage of total leukocytesOrdered By: Safia Ruelas on 09-17-2024 Lymphocytes/100 WBC Auto (Unsp spec) 26.3 % 19-41 [facility] BUN/creatinine ratioOrdered By: Safia Ruelas on 09-17-2024 Urea nitrogen/Creatinine [Mass ratio] 45.9 mg/mg High 10-20 [facility] Basophil percentageOrdered B y: Safia Ruelas on 09-17-2024 Basophils/100 WBC (Bld) 0.6 % 0-1 [facility] Calculated very low density lipoprotein (VLDL) cholesterol measurementOrdered By: Safia Ruelas on 09-17-2024 Calculated very low density lipoprotein (VLDL) cholesterol measurement 22 mg/dL 5-40 [facility] Carbon dioxide, total [Moles /volume] in Central venous bloodOrdered By: Safia Ruelas on 09-17-2024 CO2 [Moles/Vol] 24.5 mmol/L 21.0-32.0 [facility] Chloride assayOrdered By: Balbir Ruelas on 09-17-2024 Chloride [Moles/Vol] 98 mmol/L 98-108 [facility] Eosinophil percentageOrdered By: Safia Ruelas on 09-17-2024 Eosinophils/100 WBC (Bld) 3.2 % 0-5 [facility] Erythrocyte distribution wid th ratioOrdered By: Safia Ruelas on 09-17-2024 Erythrocyte distribution width (RBC) [Ratio] 13.4 % 11.6-14.6 [facility] Erythrocyte distribution wid th standard deviationOrdered By: sherry Ruelas on 09-17-2024 Erythrocyte distribution width (RBC) [Ratio] 45.4 fl High 35.1-43.9 [facility] Glomerular filtration rate ( GFR) estimation/1.73 sq m using serum, plasma, or whole bOrdered By: Safia Ruelas on 09-17-2024 GFR/1.73 sq M.predicted among non-blacks MDRD (S/P/Bld) [Vol rate/Area] 69 mL/min/{1.73_m2} >60 [facility] Comment on above: mL/min/1.73m2 CKD-EP I Creatinine Equation (2020) Hematocrit Auto (Bld) [Volum e fraction]Ordered By: Safia Ruelas on 09-17-2024 Hematocrit (Bld) [Volume fraction] 38.8 % 37-47 [facility] Hemoglobin measurementOrdere d By: Safia Ruelas on 09-17-2024 Hemoglobin (Bld) [Mass/Vol] 12.6 g/dL 12.0-15.0 [facility] Immature granulocytes/100 WB C Auto (Bld)Ordered By: Safia Ruelas on 09-17-2024 Immature granulocytes/100 WBC (Bld) 0.700 % 0.0-0.9 [facility] Comment on above: IG% - Immature Granu locytes (promyelocytes, myelocytes and metamyelocytes) > 1% indicates that a LEFT SHIFT is Present. LDL calc ser/plasOrdered By: Safia Ruelas on 09-17-2024 Cholesterol in LDL [Mass/Vol] 120 mg/dL [facility] Comment on above: Nojsmtyzka=724-636 m g/dL & Higher Blia=761 mg/dL or greater MCV (mean corpuscular volume ) determinationOrdered By: Safia Ruelas on 09-17-2024 MCV (RBC) [Entitic vol] 91.7 fL 81-99 [facility] Mean corpuscular hemoglobin (MCH) determinationOrdered By: Safia Ruelas on 09-17-2024 MCH (RBC) [Entitic mass] 29.8 pg 27.0-32.0 [facility] Mean corpuscular hemoglobin concentration (MCHC) determinationOrdered By: Safia Ruelas on 09-17-2024 MCHC (RBC) [Mass/Vol] 32.5 g/dL 32-36 [facility] Mean platelet volume determi nationOrdered By: Safia Ruelas on 09-17-2024 Platelet mean volume (Bld) [Entitic vol] 11.4 fL 6.2-12.0 [facility] Monocyte percentageOrdered B y: Safia Ruelas on 09-17-2024 Monocytes/100 WBC (Bld) 8.5 % 0-10 [facility] Neutrophil percentageOrdered By: jean marieclyoskye Ruelas on 09-17-2024 Neutrophils/100 WBC (Bld) 60.7 % 47-70 [facility] Nucleated red blood cell per centageOrdered By: sherry Ruelas on 09-17-2024 Nucleated RBC/100 WBC (Bld) [Ratio] 0 % 0-5 [facility] Platelet countOrdered By: Balbir Ruelas on 09-17-2024 Platelets (Bld) [#/Vol] 311 10*3/uL 150-450 [facility] Potassium measurement (mass/ volume)Ordered By: Safia Ruelas on 09-17-2024 Potassium (Unsp spec) [Mass/Vol] 4.1 mmol/L 3.3-5.1 [facility] RBC Auto (Bld) [#/Vol]Ordere d By: Safia Ruelas on 09-17-2024 RBC (Bld) [#/Vol] 4.23 10*6/uL 4.2-5.4 [facility] Screening total cholesterol/ high density lipoprotein (HDL) cholesterol ratioOrdered By: Safia Ruelas on 09-17-2024 Cholesterol.total/Alta sterol in HDL [Mass ratio] 5.38 {ratio} [facility] Serum creatinine measurement (mass/volume)Ordered By: Safia Ruelas on 09-17-2024 Creatinine [Mass/Vol] 0.86 mg/dL 0.70-1.20 [facility] Serum glucose measurement (m ass/volume)Ordered By: Safia Ruelas on 09-17-2024 Glucose [Mass/Vol] 216 mg/dL High 70-99 [facility] Serum or plasma calcium dayna urement (mass/volume)Ordered By: Safia Ruelas on 09-17-2024 Calcium [Mass/Vol] 9.4 mg/dL 7.6-11.0 [facility] Serum or plasma cholesterol in HDL measurement (mass/volume)Ordered By: Safia Ruelas on 09-17-2024 Cholesterol in HDL [Mass/Vol] 33 mg/dL Low >40 [facility] Comment on above: National Cholesterol Education Program (NCEP) guidelines:<40 mg/dL: Low HDL-cholesterol (major risk factor for CHD)>= 60 mg/dL: High HDL-cholesterol (negative risk factor for CHD)HDL-cholesterol is affected by a number of factors, e.g. smoking, exercise, hormones, sex and age. Serum or plasma cholesterol measurement (mass/volume)Ordered By: Safia Ruelas on 09-17-2024 Cholesterol [Mass/Vol] 175 mg/dL <201 [facility] Comment on above: Cholesterol level, D esirable <200 mg/dLBorderline high cholesterol 200-239 mg/dLHigh cholesterol >=240 mg/dLRecommendations of the NCEP Adult Treatment Panel for the following risk-cutoff thresholds for the [place] population. Serum or plasma urea nitroge n measurement (mass/volume)Ordered By: Safia Ruelas on 09-17-2024 Urea nitrogen [Mass/Vol] 39 mg/dL High 4-19 [facility] Sodium levelOrdered By: Leonides Ruelas on 09-17-2024 Sodium [Moles/Vol] 134 mmol/L 133-145 [facility] TSH DL <= 0.005 mIU/L QnOrde red By: Safia Ruelas on 09-17-2024 TSH Qn 3.500 uIU/mL 0.300-4.200 [facility] Triglycerides measurementOrd ered By: Safia Ruelas on 09-17-2024 Triglyceride [Mass/Vol] 111 mg/dL <199 [facility] Comment on above: The drugs N-Acetylcy steine and Metamizole may falsely depress this assay. Normal range: <150 mg/dLBorderline High: 150-199 mg/dLHigh: 200-499 mg/dLVery High: >500 mg/dL White blood cell (WBC) count Ordered By: Safia Ruelas on 09-17-2024 WBC (Bld) [#/Vol] 9.6 10*3/uL 4.4-11.0 [facility] Absolute lymphocyte countOrd ered By: Safia Ruelas on 09-10-2024 Lymphocytes Auto (Unsp spec) [#/Vol] 2.11 10*3/uL 0.83-4.51 [facility] Absolute neutrophil countOrd ered By: Safia Ruelas on 09-10-2024 Neutrophils (Bld) [#/Vol] 8.1 10*3/uL High 2.0-7.7 [facility] Anion gap in Serum or Plasma Ordered By: Safia Ruelas on 09-10-2024 Anion gap [Moles/Vol] 13 mmol/L 5-15 [facility] Automated lymphocyte count a s percentage of total leukocytesOrdered By: Safia Ruelas on 09-10-2024 Lymphocytes/100 WBC Auto (Unsp spec) 17.9 % Low 19-41 [facility] BUN/creatinine ratioOrdered By: Leonidesclyoskye Ruelas on 09-10-2024 Urea nitrogen/Creatinine [Mass ratio] 29.1 mg/mg High 10-20 [facility] Basophil percentageOrdered B y: Safia Ruelas on 09-10-2024 Basophils/100 WBC (Bld) 0.3 % 0-1 [facility] Bilirubin, totalOrdered By: Safia Ruelas on 09-10-2024 Bilirubin [Mass/Vol] 0.55 mg/dL 0.00-1.30 [facility] Carbon dioxide, total [Moles /volume] in Central venous bloodOrdered By: Safia Ruelas on 09-10-2024 CO2 [Moles/Vol] 23.6 mmol/L 21.0-32.0 [facility] Chloride assayOrdered By: Balbir jean mariejosé antonio Ruelas on 09-10-2024 Chloride [Moles/Vol] 97 mmol/L Low 98-108 [facility] Eosinophil percentageOrdered By: Safia Griderbonimelanie on 09-10-2024 Eosinophils/100 WBC (Bld) 0.5 % 0-5 [facility] Erythrocyte distribution wid th ratioOrdered By: Safia Ruelas on 09-10-2024 Erythrocyte distribution width (RBC) [Ratio] 13.4 % 11.6-14.6 [facility] Erythrocyte distribution wid th standard deviationOrdered By: sherry Ruelas on 09-10-2024 Erythrocyte distribution width (RBC) [Ratio] 45.2 fl High 35.1-43.9 [facility] Glomerular filtration rate ( GFR) estimation/1.73 sq m using serum, plasma, or whole bOrdered By: Safia Ruelas on 09-10-2024 GFR/1.73 sq M.predicted among non-blacks MDRD (S/P/Bld) [Vol rate/Area] 59 mL/min/{1.73_m2} Low >60 [facility] Comment on above: mL/min/1.73m2 CKD-EP I Creatinine Equation (2020) Hematocrit Auto (Bld) [Volum e fraction]Ordered By: Safia Ruelas on 09-10-2024 Hematocrit (Bld) [Volume fraction] 41.8 % 37-47 [facility] Hemoglobin measurementOrdere d By: Safia Ruelas on 09-10-2024 Hemoglobin (Bld) [Mass/Vol] 13.4 g/dL 12.0-15.0 [facility] Immature granulocytes/100 WB C Auto (Bld)Ordered By: Safia Ruelas on 09-10-2024 Immature granulocytes/100 WBC (Bld) 0.800 % 0.0-0.9 [facility] Comment on above: IG% - Immature Granu locytes (promyelocytes, myelocytes and metamyelocytes) > 1% indicates that a LEFT SHIFT is Present. Laboratory - Chemistry and C hemistry - challengeOrdered By: Safia Ruelas on 09-10-2024 AST [Catalytic activity/Vol] 21 U/L <32 [facility] MCV (mean corpuscular volume ) determinationOrdered By: Safia Ruelas on 09-10-2024 MCV (RBC) [Entitic vol] 92.5 fL 81-99 [facility] Mean corpuscular hemoglobin (MCH) determinationOrdered By: Safia Ruelas on 09-10-2024 MCH (RBC) [Entitic mass] 29.6 pg 27.0-32.0 [facility] Mean corpuscular hemoglobin concentration (MCHC) determinationOrdered By: Safia Ruelas on 09-10-2024 MCHC (RBC) [Mass/Vol] 32.1 g/dL 32-36 [facility] Mean platelet volume determi nationOrdered By: Safia Ruelas on 09-10-2024 Platelet mean volume (Bld) [Entitic vol] 12.6 fL High 6.2-12.0 [facility] Monocyte percentageOrdered B y: Safia Ruelas on 09-10-2024 Monocytes/100 WBC (Bld) 12.3 % High 0-10 [facility] Neutrophil percentageOrdered By: Safia Ruelas on 09-10-2024 Neutrophils/100 WBC (Bld) 68.2 % 47-70 [facility] Nucleated red blood cell per centageOrdered By: Safia Ruelas on 09-10-2024 Nucleated RBC/100 WBC (Bld) [Ratio] 0 % 0-5 [facility] Platelet countOrdered By: Balbir Ruelas on 09-10-2024 Platelets (Bld) [#/Vol] 190 10*3/uL 150-450 [facility] Potassium measurement (mass/ volume)Ordered By: Safia Ruelas on 09-10-2024 Potassium (Unsp spec) [Mass/Vol] 4.3 mmol/L 3.3-5.1 [facility] RBC Auto (Bld) [#/Vol]Ordere d By: Safia Ruelas on 09-10-2024 RBC (Bld) [#/Vol] 4.52 10*6/uL 4.2-5.4 [facility] Serum creatinine measurement (mass/volume)Ordered By: Safia Ruelas on 09-10-2024 Creatinine [Mass/Vol] 0.98 mg/dL 0.70-1.20 [facility] Serum globulin measurementOr dered By: Safia Ruelas on 09-10-2024 Globulin (S) [Mass/Vol] 3.3 g/dL 2.2-4.2 [facility] Serum glucose measurement (m ass/volume)Ordered By: Safia Ruelas on 09-10-2024 Glucose [Mass/Vol] 181 mg/dL High 70-99 [facility] Serum or plasma alanine raymundo otransferase (ALT) measurementOrdered By: Safia Ruelas on 09-10-2024 ALT [Catalytic activity/Vol] 26 U/L <35 [facility] Serum or plasma albumin dayna urement (mass/volume)Ordered By: Safia Ruelas on 09-10-2024 Albumin [Mass/Vol] 3.4 g/dL 3.4-4.8 [facility] Serum or plasma albumin/glob ulin mass ratioOrdered By: Balbirjean mariedesireeskye Griderbonimelanie on 09-10-2024 Albumin/Globulin [Mass ratio] 1.0 {ratio} 0.9-2.4 [facility] Serum or plasma alkaline hannah sphatase measurementOrdered By: Balbirjean mariedesireeskye Griderbonimelanie on 09-10-2024 ALP [Catalytic activity/Vol] 114 U/L High 35-104 [facility] Serum or plasma calcium dayna urement (mass/volume)Ordered By: Safia Ruelas on 09-10-2024 Calcium [Mass/Vol] 9.3 mg/dL 7.6-11.0 [facility] Serum or plasma urea nitroge n measurement (mass/volume)Ordered By: Balbirjean mariedesireeskye Griderbonimelanie on 09-10-2024 Urea nitrogen [Mass/Vol] 29 mg/dL High 4-19 [facility] Sodium levelOrdered By: Balbirjean marie josé antonio Cheobonimelanie on 09-10-2024 Sodium [Moles/Vol] 133 mmol/L 133-145 [facility] Total proteinOrdered By: Augusto ervin Jessenia on 09-10-2024 Protein [Mass/Vol] 6.7 g/dL 5.9-8.4 [facility] White blood cell (WBC) count Ordered By: Balbirjean mariedesireeskye Griderbonimelanie on 09-10-2024 WBC (Bld) [#/Vol] 11.8 10*3/uL High 4.4-11.0 [facility] LABORATORYOrdered By: Abigail Smith on 09-09-2024 Glucose [Mass/Vol] 212 mg/dL High 82 - 115 mg/dL [facility] Work Phone: Glucose [Mass/Vol] 226 mg/dL High 82 - 115 mg/dL [facility] Work Phone: LABORATORYOrdered By: Zoila Zarco on 09-08-2024 Glucose [Mass/Vol] 149 mg/dL High 82 - 115 mg/dL [facility] Work Phone: LABORATORYOrdered By: Rob Palmer on 09-08-2024 Blood Glucose Testing Reason Routine (09/08/24 6:16 PM) [employer] Work Phone: Blood Glucose Testing Reason Routine (09/08/24 11:58 AM) [employer] Work Phone: LABORATORYOrdered By: Rob Palmer on 09-07-2024 Blood Glucose Testing Reason Routine (09/07/24 4:46 PM) [employer] Work Phone: .Auto Diffon 09-03-2024 Basophil, Absolute 0.1 10 3/mcL Normal 0.0-0.3 [facility] Comment on above: Performed By: #### A DIFF, CBC, ANEU, GFR, BMP #### [address] [address] Basophils/100 WBC (Bld) 1.0 % Normal 0.0-2.5 [facility] Comment on above: Performed By: #### A DIFF, CBC, ANEU, GFR, BMP #### [address] [address] Eosinophil, Absolute 0.2 10 3/mcL Normal 0.0-0.7 [facility] Comment on above: Performed By: #### A DIFF, CBC, ANEU, GFR, BMP #### [address] [address] Eosinophils/100 WBC (Bld) 3.2 % Normal 0.0-6.0 [facility] Comment on above: Performed By: #### A DIFF, CBC, ANEU, GFR, BMP #### [address] [address] Lymphocyte, Absolute 2.0 10 3/mcL Normal 0.9-4.3 [facility] Comment on above: Performed By: #### A DIFF, CBC, ANEU, GFR, BMP #### [address] [address] Lymphocytes/100 WBC (Bld) 26.6 % Normal 20.0-40.0 [facility] Comment on above: Performed By: #### A DIFF, CBC, ANEU, GFR, BMP #### [address] [address] Monocyte, Absolute 0.7 10 3/mcL Normal 0.1-1.4 [facility] Comment on above: Performed By: #### A DIFF, CBC, ANEU, GFR, BMP #### [address] [address] Monocytes/100 WBC (Bld) 9.7 % Normal 2.0-13.0 [facility] Comment on above: Performed By: #### A DIFF, CBC, ANEU, GFR, BMP #### [address] [address] Neutrophils/100 WBC (Bld) 59.5 % Normal 50.0-75.0 [facility] Comment on above: Performed By: #### A DIFF, CBC, ANEU, GFR, BMP #### [address] [address] .GFRon 09-03-2024 Estimated Glomerular Filtration Rate 57 ml/min/1.73sqm Normal [facility] Comment on above: Result Comment: Stages of Chronic Kidney Disease [...] calculate the eGFR results. Performed By: #### A DIFF, CBC, ANEU, GFR, BMP #### [address] [address] .NEUABSon 09-03-2024 Neutrophil, Absolute 4.5 10 3/mcL Normal 2.3-8.1 [facility] Comment on above: Performed By: #### A DIFF, CBC, ANEU, GFR, BMP #### [address] [address] B12on 09-03-2024 Cobalamin (Vitamin B12) [Mass/Vol] 834 pg/mL Normal 211-911 [facility] Comment on above: Performed By: #### A DIFF, CBC, ANEU, GFR, BMP #### [address] [address] CBCon 09-03-2024 Erythrocyte distribution width (RBC) [Ratio] 14.7 % Normal 11.5-15.5 [facility] Comment on above: Performed By: #### A DIFF, CBC, ANEU, GFR, BMP #### [place] [address] Hematocrit (Bld) [Volume fraction] 39.7 % Normal 34.0-46.0 [facility] Comment on above: Performed By: #### A DIFF, CBC, ANEU, GFR, BMP #### [place] [address] Hgb 13.2 G/dL Normal 12.0-16.0 [facility] Comment on above: Performed By: #### A DIFF, CBC, ANEU, GFR, BMP #### [address] [address] MCH (RBC) [Entitic mass] 30.6 pg Normal 27.0-33.0 [facility] Comment on above: Performed By: #### A DIFF, CBC, ANEU, GFR, BMP #### [place] [id number] MCHC 33.3 G/dL Normal 32.0-36.0 [facility] Comment on above: Performed By: #### A DIFF, CBC, ANEU, GFR, BMP #### [address] [address] MCV (RBC) [Entitic vol] 91.9 fL Normal 80.0-99.0 [facility] Comment on above: Performed By: #### A DIFF, CBC, ANEU, GFR, BMP #### [place] [id number] Platelet 228 10 3/mcL Normal 150-450 [facility] Comment on above: Performed By: #### A DIFF, CBC, ANEU, GFR, BMP #### [address] [address] Platelet mean volume (Bld) [Entitic vol] 10.1 fL Normal 6.6-10.5 [facility] Comment on above: Performed By: #### A DIFF, CBC, ANEU, GFR, BMP #### [place] [address] RBC 4.32 10 6/mcL Normal 4.10-5.30 [facility] Comment on above: Performed By: #### A DIFF, CBC, ANEU, GFR, BMP #### [place] [address] WBC 7.6 10 3/mcL Normal 4.5-10.8 [facility] Comment on above: Performed By: #### A DIFF, CBC, ANEU, GFR, BMP #### [place] [address] CMPon 09-03-2024 Albumin Level 3.0 G/dL Low 3.2-4.8 [facility] Comment on above: Performed By: #### A DIFF, CBC, ANEU, GFR, BMP #### [place] [address] Albumin/Globulin [Mass ratio] 0.9 {ratio} Normal 0.9-1.6 [facility] Comment on above: Performed By: #### A DIFF, CBC, ANEU, GFR, BMP #### [place] [address] ALP [Catalytic activity/Vol] 115 U/L Normal 38-126 [facility] Comment on above: Performed By: #### A DIFF, CBC, ANEU, GFR, BMP #### [place] [address] ALT [Catalytic activity/Vol] 37 U/L Normal 10-49 [facility] Comment on above: Performed By: #### A DIFF, CBC, ANEU, GFR, BMP #### [place] [address] AST [Catalytic activity/Vol] 31 U/L Normal 8-34 [facility] Comment on above: Performed By: #### A DIFF, CBC, ANEU, GFR, BMP #### [address] [address] Bili Total 0.50 mg/dL Normal 0.20-1.20 [facility] Comment on above: Result Comment: Use of this assay is not recommended for patients undergoing treatment with eltrombopag due to the potential for falsely elevated results. Performed By: #### A DIFF, CBC, ANEU, GFR, BMP #### [place] [id number] BUN/Creatinine Ratio 29.7 ratio High 10.0-22.0 [facility] Comment on above: Performed By: #### A DIFF, CBC, ANEU, GFR, BMP #### [place] [id number] Calcium [Mass/Vol] 9.6 mg/dL Normal 8.7-10.[address] [facility] MAIN Comment on above: Performed By: #### A DIFF, CBC, ANEU, GFR, BMP #### [place] [id number] Chloride [Moles/Vol] 101 mmol/L Normal 98-110 [facility] MAIN Comment on above: Performed By: #### A DIFF, CBC, ANEU, GFR, BMP #### [place] [id number] CO2 [Moles/Vol] 27 mmol/L Normal 22-32 [facility] MAIN Comment on above: Performed By: #### A DIFF, CBC, ANEU, GFR, BMP #### [place] [address] Creatinine [Mass/Vol] 1.01 mg/dL Normal 0.50-1.20 [facility] MAIN Comment on above: Result Comment: Test ing performed on Nexx Studio analyzer using enzymatic creatinine methodology. Performed By: #### A DIFF, CBC, ANEU, GFR, BMP #### [place] [id number] Electrolyte Balance 10.0 mEq/L Normal 4.0-15.0 [facility] MAIN Comment on above: Performed By: #### A DIFF, CBC, ANEU, GFR, BMP #### [place] [id number] Globulin 3.4 G/dL Normal 1.5-3.8 [facility] MAIN Comment on above: Performed By: #### A DIFF, CBC, ANEU, GFR, BMP #### [address] [address] Glucose [Mass/Vol] 187 mg/dL High 82-[address] [facility] MAIN Comment on above: Performed By: #### A DIFF, CBC, ANEU, GFR, BMP #### [address] [address] Potassium [Moles/Vol] 4.6 mmol/L Normal 3.5-5.0 [facility] Comment on above: Performed By: #### A DIFF, CBC, ANEU, GFR, BMP #### [address] [address] Sodium [Moles/Vol] 138 mmol/L Normal 136-[address] [facility] MAIN Comment on above: Performed By: #### A DIFF, CBC, ANEU, GFR, BMP #### [address] [address] Total Protein 6.4 G/dL Normal 5.7-8.2 [facility] MAIN Comment on above: Performed By: #### A DIFF, CBC, ANEU, GFR, BMP #### [address] [address] Urea nitrogen [Mass/Vol] 30.0 mg/dL High 8.0-22.0 [facility] MAIN Comment on above: Performed By: #### A DIFF, CBC, ANEU, GFR, BMP #### [address] [address] LABORATORYOrdered By: Ann Carrillo on 09-03-2024 Glucose [Mass/Vol] 270 mg/dL [facility] Work Phone: LABORATORYOrdered By: SYSTEM SYSTEM on 09-03-2024 Albumin BCP dye [Mass/Vol] 3.0 G/dL Low 3.2 - 4.8 G/dL ADM SS Albumin/Globulin [Mass ratio] 0.9 {ratio} Normal 0.9 - 1.6 ratio AH ADM SS ALP [Catalytic activity/Vol] 115 U/L Normal 38 - 126 U/L ADM SS ALT No additional P-5'-P [Catalytic activity/Vol] 37 U/L Normal 10 - 49 U/L ADM SS AST [Catalytic activity/Vol] 31 U/L Normal 8 - 34 U/L ADM SS Basophils (Bld) [#/Vol] 0.1 103/mcL Normal 0.0 - 0.3 10^3/mcL Workflow SS Basophils/100 WBC (Bld) 1.0 % Normal 0.0 - 2.5 % Workflow SS Bilirubin [Mass/Vol] 0.50 mg/dL Normal 0.20 - 1.20 mg/dL ADM SS Comment on above: Interpretive Data: U se of this assay is not recommended for patients undergoing treatment with eltrombopag due to the potential for falsely elevated results. Calcium [Mass/Vol] 9.6 mg/dL Normal 8.7 - 10. 4 mg/dL ADM SS Chloride [Moles/Vol] 101 mmol/L Normal 98 - 11 0 mEq/L ADM SS CO2 [Moles/Vol] 27 mmol/L Normal 22 - 32 mEq/L ADM SS Cobalamin (Vitamin B12) [Mass/Vol] 834 pg/mL Normal 211 - 911 pg/mL ADM SS Creatinine [Mass/Vol] 1.01 mg/dL Normal 0.50 - 1.20 mg/dL ADM SS Comment on above: Interpretive Data: T esting performed on Nexx Studio analyzer using enzymatic creatinine methodology. Electrolyte Balance 10.0 mEq/L Normal 4.0 - 15 .0 mEq/L ADM SS Eosinophils (Bld) [#/Vol] 0.2 103/mcL Normal 0.0 - 0.7 10^3/mcL Workflow SS Eosinophils/100 WBC (Bld) 3.2 % Normal 0.0 - 6.0 % Workflow SS Erythrocyte distribution width (RBC) [Ratio] 14.7 % Normal 11.5 - 15.5 % Workflow SS Estimated Glomerular Filtration Rate 57 ml/min/1.73sqm Invalid Interpretation Code Chemistry S Comment on above: Interpretive Data: Stages of Chronic Kidney Disease (CKD) Stage [...] race factor to calculate the eGFR results. Globulin 3.4 G/dL Normal 1.5 - 3.8 G/dL AH ADM SS Glucose [Mass/Vol] 187 mg/dL High 82 - 115 mg/dL AH ADM SS Hematocrit (Bld) [Volume fraction] 39.7 % Normal 34.0 - 46.0 % AH Workflow SS Hemoglobin (Bld) [Mass/Vol] 13.2 G/dL Normal 12.0 - 16.0 G/dL AH Workflow SS Lymphocytes (Bld) [#/Vol] 2.0 103/mcL Normal 0.9 - 4.3 10^3/mcL AH Workflow SS Lymphocytes/100 WBC (Bld) 26.6 % Normal 20.0 - 40.0 % AH Workflow SS MCH (RBC) [Entitic mass] 30.6 pg Normal 27.0 - 33.0 pg AH Workflow SS MCHC 33.3 G/dL Normal 32.0 - 36.0 G/dL AH Workflow SS MCV (RBC) [Entitic vol] 91.9 fL Normal 80.0 - 99.0 fL AH Workflow SS Monocytes (Bld) [#/Vol] 0.7 103/mcL Normal 0.1 - 1.4 10^3/mcL AH Workflow SS Monocytes/100 WBC (Bld) 9.7 % Normal 2.0 - 13.0 % AH Workflow SS Neutrophils (Bld) [#/Vol] 4.5 103/mcL Normal 2.3 - 8.1 10^3/mcL AH Workflow SS Neutrophils/100 WBC (Bld) 59.5 % Normal 50.0 - 75.0 % AH Workflow SS Platelet mean volume (Bld) [Entitic vol] 10.1 fL Normal 6.6 - 10.5 fL AH Workflow SS Platelets (Bld) [#/Vol] 228 103/mcL Normal 150 - 450 10^3/mcL AH Workflow SS Potassium [Moles/Vol] 4.6 mmol/L Normal 3.5 - 5.0 mEq/L AH ADM SS Protein [Mass/Vol] 6.4 G/dL Normal 5.7 - 8.2 G/dL AH ADM SS RBC (Bld) [#/Vol] 4.32 106/mcL Normal 4.10 - 5.3 0 10^6/mcL AH Workflow SS Sodium [Moles/Vol] 138 mmol/L Normal 136 - 145 mEq/L AH ADM SS TSH Qn 3.920 mIU/mL Normal 0.550 - 4.780 mIU/mL AH ADM SS Urea nitrogen [Mass/Vol] 30.0 mg/dL High 8.0 - 22.0 mg/dL AH ADM SS Urea nitrogen/Creatinine [Mass ratio] 29.7 ratio High 10.0 - 22.0 ratio AH ADM SS WBC (Bld) [#/Vol] 7.6 103/mcL Normal 4.5 - 10.8 10^3/mcL AH Workflow SS TSHon 09-03-2024 TSH 3.920 mIU/mL Normal 0.550-4.780 [facility] MAIN Comment on above: Performed By: #### A DIFF, CBC, ANEU, GFR, BMP #### [place] [address] [address] HEAD OR BRAIN W/O CONTRAS Ton 09-02-2024 CT HEAD OR BRAIN W/O CONTRAST ORIGINAL HISTORY: Lethargy COMPARISON: No TECHNIQUE: Routine [...] Date: 09/02/2024 3:10:44 PM Ordering Provider: SILVINO Anderson [facility] CHRISTINA Wills 08-30-2024 RANDEE Telephone (FAMAkinWS) LINDSAY ACUNA ([id number]) 1945 F Date Time Provider Department 08/30/24 KAMERON CARUSO During your visit today, we recorded the following information about you: Jaiden Paulino, RN 08/30/2024 9:11 AM Signed Marya- [facility] reports patient was in [facility] with dx: stroke, and transferred to [facility]. Pt will be discharged from [facility] on 09/07/24 to home with [facility] SN PT OT [facility]. Asking if pcp agreeable to follow for C. Please phone Marya with verbal: [phone] Mj Glover APRN.GARRETT 08/30/2024 9:19 AM Signed Please let know that Dr. Caruso's team will follow orders. Okay to proceed. Mj Glover APRN.Fouzia Reynoso LPN 08/30/2024 10:09 AM Signed Marya with [facility] notified. Allergies As of Date: 08/30/2024 Noted Allergy Reaction BENZOCAINE 07/08/2005 2 - Rash COCAINE 05/28/2008 Comments: Inverted T PERFUMES 07/08/2005 12 - Shortness of Breath Comments: coughes and chokes SULFA (SULFONAMIDE ANTIBIOTICS) 07/08/2005 5 - Intolerance Date Reviewed: 06/26/2024 Reviewed by: Bret Arambula LPN - Fully Assessed Reason for Visit: [facility] requesting verbal agree to follow [Other] [...] Encounter Status:Closed by FOUZIA MILLER on 08/30/24 Normal [facility] .Auto Diffon 08-26-2024 Basophil, Absolute 0.1 10 3/mcL Normal 0.0-0.3 [facility] MAIN Comment on above: Performed By: #### A DIFF, CBC, ANEU, GFR, BMP #### [address] [address] Basophils/100 WBC (Bld) 1.0 % Normal 0.0-2.5 [facility] MAIN Comment on above: Performed By: #### A DIFF, CBC, ANEU, GFR, BMP #### [address] [address] Eosinophil, Absolute 0.3 10 3/mcL Normal 0.0-0.7 [facility] MAIN Comment on above: Performed By: #### A DIFF, CBC, ANEU, GFR, BMP #### [address] [address] Eosinophils/100 WBC (Bld) 4.2 % Normal 0.0-6.0 [facility] MAIN Comment on above: Performed By: #### A DIFF, CBC, ANEU, GFR, BMP #### [address] [address] Lymphocyte, Absolute 2.2 10 3/mcL Normal 0.9-4.3 [facility] MAIN Comment on above: Performed By: #### A DIFF, CBC, ANEU, GFR, BMP #### [address] [address] Lymphocytes/100 WBC (Bld) 26.3 % Normal 20.0-40.0 [facility] MAIN Comment on above: Performed By: #### A DIFF, CBC, ANEU, GFR, BMP #### [address] [address] Monocyte, Absolute 0.9 10 3/mcL Normal 0.1-1.4 [facility] MAIN Comment on above: Performed By: #### A DIFF, CBC, ANEU, GFR, BMP #### [address] [address] Monocytes/100 WBC (Bld) 11.4 % Normal 2.0-13.0 [facility] MAIN Comment on above: Performed By: #### A DIFF, CBC, ANEU, GFR, BMP #### [address] [address] Neutrophils/100 WBC (Bld) 57.1 % Normal 50.0-75.0 [facility] MAIN Comment on above: Performed By: #### A DIFF, CBC, ANEU, GFR, BMP #### [address] [address] .GFRon 08-26-2024 Estimated Glomerular Filtration Rate 59 ml/min/1.73sqm Normal [facility] MAIN Comment on above: Result Comment: Stages of Chronic Kidney Disease [...] calculate the eGFR results. Performed By: #### A DIFF, CBC, ANEU, GFR, BMP #### [address] [address] .NEUABSon 08-26-2024 Neutrophil, Absolute 4.7 10 3/mcL Normal 2.3-8.1 [facility] MAIN Comment on above: Performed By: #### A DIFF, CBC, ANEU, GFR, BMP #### [address] [address] BMPon 08-26-2024 BUN/Creatinine Ratio 35.1 ratio High 10.0-22.0 [facility] MAIN Comment on above: Performed By: #### A DIFF, CBC, ANEU, GFR, BMP #### [address] [address] Calcium [Mass/Vol] 9.8 mg/dL Normal 8.7-10.[address] [facility] MAIN Comment on above: Performed By: #### A DIFF, CBC, ANEU, GFR, BMP #### [address] [address] Chloride [Moles/Vol] 98 mmol/L Normal 98-110 [facility] MAIN Comment on above: Performed By: #### A DIFF, CBC, ANEU, GFR, BMP #### [address] [address] CO2 [Moles/Vol] 25 mmol/L Normal 22-32 [facility] MAIN Comment on above: Performed By: #### A DIFF, CBC, ANEU, GFR, BMP #### [address] [address] Creatinine [Mass/Vol] 0.97 mg/dL Normal 0.50-1.20 [facility] MAIN Comment on above: Result Comment: Test ing performed on Nexx Studio analyzer using enzymatic creatinine methodology. Performed By: #### A DIFF, CBC, ANEU, GFR, BMP #### [address] [address] Electrolyte Balance 12.0 mEq/L Normal 4.0-15.0 [facility] MAIN Comment on above: Performed By: #### A DIFF, CBC, ANEU, GFR, BMP #### [address] [address] Glucose [Mass/Vol] 160 mg/dL High 82-[address] [facility] MAIN Comment on above: Performed By: #### A DIFF, CBC, ANEU, GFR, BMP #### [address] [address] Potassium [Moles/Vol] 4.7 mmol/L Normal 3.5-5.0 [facility] MA[facility] Comment on above: Result Comment: Spec imen slightly hemolyzed. Performed By: #### A DIFF, CBC, ANEU, GFR, BMP #### [address] [address] Sodium [Moles/Vol] 135 mmol/L Low 136-[address] [facility] MAIN Comment on above: Performed By: #### A DIFF, CBC, ANEU, GFR, BMP #### [place] [address] Urea nitrogen [Mass/Vol] 34.0 mg/dL High 8.0-22.0 [facility] MAIN Comment on above: Performed By: #### A DIFF, CBC, ANEU, GFR, BMP #### [place] [address] CBCon 08-26-2024 Erythrocyte distribution width (RBC) [Ratio] 14.0 % Normal 11.5-15.5 [facility] MAIN Comment on above: Performed By: #### A DIFF, CBC, ANEU, GFR, BMP #### [place] [address] Hematocrit (Bld) [Volume fraction] 41.0 % Normal 34.0-46.0 [facility] MAIN Comment on above: Performed By: #### A DIFF, CBC, ANEU, GFR, BMP #### [place] [address] Hgb 13.4 G/dL Normal 12.0-16.0 [facility] MAIN Comment on above: Performed By: #### A DIFF, CBC, ANEU, GFR, BMP #### [place] [id number] MCH (RBC) [Entitic mass] 30.0 pg Normal 27.0-33.0 [facility] MAIN Comment on above: Performed By: #### A DIFF, CBC, ANEU, GFR, BMP #### [place] [address] MCHC 32.7 G/dL Normal 32.0-36.0 [facility] MAIN Comment on above: Performed By: #### A DIFF, CBC, ANEU, GFR, BMP #### [place] [address] MCV (RBC) [Entitic vol] 91.9 fL Normal 80.0-99.0 [facility] MAIN Comment on above: Performed By: #### A DIFF, CBC, ANEU, GFR, BMP #### [address] [address] Platelet 297 10 3/mcL Normal 150-450 [facility] MAIN Comment on above: Performed By: #### A DIFF, CBC, ANEU, GFR, BMP #### [place] [id number] [address] [place] [address] Platelet mean volume (Bld) [Entitic vol] 11.0 fL High 6.6-10.5 [facility] MAIN Comment on above: Performed By: #### A DIFF, CBC, ANEU, GFR, BMP #### [address] [address] RBC 4.46 10 6/mcL Normal 4.10-5.30 [facility] MAIN Comment on above: Performed By: #### A DIFF, CBC, ANEU, GFR, BMP #### [address] [address] WBC 8.3 10 3/mcL Normal 4.5-10.8 [facility] MAIN Comment on above: Performed By: #### A DIFF, CBC, ANEU, GFR, BMP #### [address] [address] LABORATORYOrdered By: SYSTEM SYSTEM on 08-26-2024 Basophils (Bld) [#/Vol] 0.1 103/mcL Normal 0.0 - 0.3 10^3/mcL Workflow SS Basophils/100 WBC (Bld) 1.0 % Normal 0.0 - 2.5 % Workflow SS Calcium [Mass/Vol] 9.8 mg/dL Normal 8.7 - 10. 4 mg/dL ADM SS Chloride [Moles/Vol] 98 mmol/L Normal 98 - 11 0 mEq/L ADM SS CO2 [Moles/Vol] 25 mmol/L Normal 22 - 32 mEq/L ADM SS Creatinine [Mass/Vol] 0.97 mg/dL Normal 0.50 - 1.20 mg/dL ADM SS Comment on above: Interpretive Data: T esting performed on Nexx Studio analyzer using enzymatic creatinine methodology. Electrolyte Balance 12.0 mEq/L Normal 4.0 - 15 .0 mEq/L ADM SS Eosinophils (Bld) [#/Vol] 0.3 103/mcL Normal 0.0 - 0.7 10^3/mcL AH Workflow SS Eosinophils/100 WBC (Bld) 4.2 % Normal 0.0 - 6.0 % AH Workflow SS Erythrocyte distribution width (RBC) [Ratio] 14.0 % Normal 11.5 - 15.5 % AH Workflow SS Estimated Glomerular Filtration Rate 59 ml/min/1.73sqm Invalid Interpretation Code Chemistry S Comment on above: Interpretive Data: Stages of Chronic Kidney Disease (CKD) Stage [...] race factor to calculate the eGFR results. Glucose [Mass/Vol] 160 mg/dL High 82 - 115 mg/dL ADM SS Hematocrit (Bld) [Volume fraction] 41.0 % Normal 34.0 - 46.0 % AH Workflow SS Hemoglobin (Bld) [Mass/Vol] 13.4 G/dL Normal 12.0 - 16.0 G/dL AH Workflow SS Lymphocytes (Bld) [#/Vol] 2.2 103/mcL Normal 0.9 - 4.3 10^3/mcL Workflow SS Lymphocytes/100 WBC (Bld) 26.3 % Normal 20.0 - 40.0 % AH Workflow SS MCH (RBC) [Entitic mass] 30.0 pg Normal 27.0 - 33.0 pg AH Workflow SS MCHC 32.7 G/dL Normal 32.0 - 36.0 G/dL Workflow SS MCV (RBC) [Entitic vol] 91.9 fL Normal 80.0 - 99.0 fL Workflow SS Monocytes (Bld) [#/Vol] 0.9 103/mcL Normal 0.1 - 1.4 10^3/mcL AH Workflow SS Monocytes/100 WBC (Bld) 11.4 % Normal 2.0 - 13.0 % AH Workflow SS Neutrophils (Bld) [#/Vol] 4.7 103/mcL Normal 2.3 - 8.1 10^3/mcL AH Workflow SS Neutrophils/100 WBC (Bld) 57.1 % Normal 50.0 - 75.0 % AH Workflow SS Platelet mean volume (Bld) [Entitic vol] 11.0 fL High 6.6 - 10.5 fL AH Workflow SS Platelets (Bld) [#/Vol] 297 103/mcL Normal 150 - 450 10^3/mcL AH Workflow SS Potassium [Moles/Vol] 4.7 mmol/L Normal 3.5 - 5.0 mEq/L AH ADM SS Comment on above: Result Comment: Spec imen slightly hemolyzed. RBC (Bld) [#/Vol] 4.46 106/mcL Normal 4.10 - 5.3 0 10^6/mcL AH Workflow SS Sodium [Moles/Vol] 135 mmol/L Low 136 - 145 mEq/L AH ADM SS Urea nitrogen [Mass/Vol] 34.0 mg/dL High 8.0 - 22.0 mg/dL AH ADM SS Urea nitrogen/Creatinine [Mass ratio] 35.1 ratio High 10.0 - 22.0 ratio AH ADM SS WBC (Bld) [#/Vol] 8.3 103/mcL Normal 4.5 - 10.8 10^3/mcL AH Workflow SS XR HAND AND WRIST [address] [facility] 08-25-2024 XR HAND AND WRIST 6 VIEWS LEFT ORIGINAL EXAMINATION: 3 XRAY VIEWS OF THE [...] Sign Date: 08/25/2024 2:27:26 PM Ordering Provider: [facility] MAIN XR HUMERUS MINIMUM 2 VIEWS Veronica Chowdhury 08-25-2024 XR HUMERUS MINIMUM 2 VIEWS LEFT ORIGINAL EXAMINATION: TWO XRAY VIEWS OF THE [...] Sign Date: 08/25/2024 2:26:11 PM Ordering Provider: [facility] MAIN XR SHOULDER MINIMUM 2 VIEWS LEFTon 08-25-2024 XR SHOULDER MINIMUM 2 VIEWS LEFT ORIGINAL EXAMINATION: TWO XRAY VIEWS OF THE [...] Sign Date: 08/25/2024 2:26:45 PM Ordering Provider: [facility] MAIN LABORATORYOrdered By: Kala lux on 08-23-2024 Glucose [Mass/Vol] 278 mg/dL [facility] Work Phone: LABORATORYOrdered By: Kala lux on 08-22-2024 Glucose [Mass/Vol] 320 mg/dL [facility] Work Phone: A1Con 08-21-2024 Glucose [Mass/Vol] 194 mg/dL Normal [facility] MAIN Comment on above: Result Comment: Nancy mated Average Glucose calculated by equation ((28.7xA1C)-46.7) Estimated average glucose (eAG) is a calculated value from Hemoglobin A1C and is promotional representative of the average blood glucose level in the last 2-3 month period. Normal range: less than 114 mg/dL Performed By: #### A 1C #### [place] [address] HbA1c (Bld) [Mass fraction] 8.4 % High 4.0-6.0 [facility] MAIN Comment on above: Performed By: #### A 1C #### [place] [address] LABORATORYOrdered By: SYSTEM SYSTEM on 08-21-2024 Glucose [Mass/Vol] 194 mg/dL Invalid Interpretation Code Auto Chem SS Comment on above: Interpretive Data: E stimated average glucose (eAG) is a calculated value from Hemoglobin A1C and is promotional representative of the average blood glucose level in the last 2-3 month period. Normal range: less than 114 mg/dL HbA1c (Bld) [Mass fraction] 8.4 % High 4.0 - 6.0 % Auto Chem SS .Auto Diffon 08-20-2024 Basophil, Absolute 0.1 10 3/mcL Normal 0.0-0.3 [facility] MAIN Comment on above: Performed By: #### B MP, ADIFF, CBC, GFR, ANEU #### [address] [address] Basophils/100 WBC (Bld) 1.1 % Normal 0.0-2.5 [facility] MAIN Comment on above: Performed By: #### B MP, ADIFF, CBC, GFR, ANEU #### [address] [address] Eosinophil, Absolute 0.3 10 3/mcL Normal 0.0-0.7 [facility] MAIN Comment on above: Performed By: #### B MP, ADIFF, CBC, GFR, ANEU #### [address] [address] Eosinophils/100 WBC (Bld) 3.6 % Normal 0.0-6.0 [facility] MAIN Comment on above: Performed By: #### B MP, ADIFF, CBC, GFR, ANEU #### [address] [address] Lymphocyte, Absolute 1.7 10 3/mcL Normal 0.9-4.3 [facility] MAIN Comment on above: Performed By: #### B MP, ADIFF, CBC, GFR, ANEU #### [address] [address] Lymphocytes/100 WBC (Bld) 20.8 % Normal 20.0-40.0 [facility] MAIN Comment on above: Performed By: #### B MP, ADIFF, CBC, GFR, ANEU #### [address] [address] Monocyte, Absolute 0.9 10 3/mcL Normal 0.1-1.4 [facility] MAIN Comment on above: Performed By: #### B MP, ADIFF, CBC, GFR, ANEU #### [address] [address] Monocytes/100 WBC (Bld) 11.4 % Normal 2.0-13.0 [facility] MAIN Comment on above: Performed By: #### B MP, ADIFF, CBC, GFR, ANEU #### [address] [address] Neutrophils/100 WBC (Bld) 63.1 % Normal 50.0-75.0 [facility] MAIN Comment on above: Performed By: #### B MP, ADIFF, CBC, GFR, ANEU #### [address] [address] .GFRon 08-20-2024 Estimated Glomerular Filtration Rate 55 ml/min/1.73sqm Normal [facility] MAIN Comment on above: Result Comment: Stages of Chronic Kidney Disease [...] calculate the eGFR results. Performed By: #### A DIFF, CBC, ANEU, GFR, BMP #### [address] [address] .NEUABSon 08-20-2024 Neutrophil, Absolute 5.1 10 3/mcL Normal 2.3-8.1 [facility] MAIN Comment on above: Performed By: #### B MP, ADIFF, CBC, GFR, ANEU #### [address] [address] BMPon 08-20-2024 BUN/Creatinine Ratio 29.8 ratio High 10.0-22.0 [facility] MAIN Comment on above: Performed By: #### B MP, ADIFF, CBC, GFR, ANEU #### [address] [address] Calcium [Mass/Vol] 9.8 mg/dL Normal 8.7-10.[address] [facility] MAIN Comment on above: Performed By: #### B MP, ADIFF, CBC, GFR, ANEU #### [address] [address] Chloride [Moles/Vol] 95 mmol/L Low 98-110 [facility] MAIN Comment on above: Performed By: #### B MP, ADIFF, CBC, GFR, ANEU #### [address] [address] CO2 [Moles/Vol] 34 mmol/L High 22-32 [facility] MAIN Comment on above: Performed By: #### B MP, ADIFF, CBC, GFR, ANEU #### [address] [address] Creatinine [Mass/Vol] 1.04 mg/dL Normal 0.50-1.20 [facility] MAIN Comment on above: Result Comment: Test ing performed on Nexx Studio analyzer using enzymatic creatinine methodology. Performed By: #### B MP, ADIFF, CBC, GFR, ANEU #### [place] [id number] Electrolyte Balance 5.0 mEq/L Normal 4.0-15.0 [facility] MAIN Comment on above: Performed By: #### B MP, ADIFF, CBC, GFR, ANEU #### [place] [id number] Glucose [Mass/Vol] 244 mg/dL High 82-[address] [facility] MAIN Comment on above: Performed By: #### B MP, ADIFF, CBC, GFR, ANEU #### [place] [id number] Potassium [Moles/Vol] 4.8 mmol/L Normal 3.5-5.0 [facility] MAIN Comment on above: Result Comment: Spec imen slightly hemolyzed. Performed By: #### B MP, ADIFF, CBC, GFR, ANEU #### [place] [id number] Sodium [Moles/Vol] 134 mmol/L Low 136-[address] [facility] MAIN Comment on above: Performed By: #### B MP, ADIFF, CBC, GFR, ANEU #### [place] [id number] Urea nitrogen [Mass/Vol] 31.0 mg/dL High 8.0-22.0 [facility] MAIN Comment on above: Performed By: #### B MP, ADIFF, CBC, GFR, ANEU #### [address] [address] CBCon 08-20-2024 Erythrocyte distribution width (RBC) [Ratio] 14.0 % Normal 11.5-15.5 [facility] MAIN Comment on above: Performed By: #### B MP, ADIFF, CBC, GFR, ANEU #### [place] [id number] Hematocrit (Bld) [Volume fraction] 41.9 % Normal 34.0-46.0 [facility] MAIN Comment on above: Performed By: #### B MP, ADIFF, CBC, GFR, ANEU #### [place] [address] Hgb 13.6 G/dL Normal 12.0-16.0 [facility] MAIN Comment on above: Performed By: #### B MP, ADIFF, CBC, GFR, ANEU #### [place] [address] MCH (RBC) [Entitic mass] 29.7 pg Normal 27.0-33.0 [facility] Comment on above: Performed By: #### B MP, ADIFF, CBC, GFR, ANEU #### [place] [address] MCHC 32.4 G/dL Normal 32.0-36.0 [facility] Comment on above: Performed By: #### B MP, ADIFF, CBC, GFR, ANEU #### [place] [address] MCV (RBC) [Entitic vol] 91.5 fL Normal 80.0-99.0 [facility] Comment on above: Performed By: #### B MP, ADIFF, CBC, GFR, ANEU #### [place] [address] Platelet 301 10 3/mcL Normal 150-450 [facility] Comment on above: Performed By: #### B MP, ADIFF, CBC, GFR, ANEU #### [place] [address] Platelet mean volume (Bld) [Entitic vol] 11.0 fL High 6.6-10.5 [facility] Comment on above: Performed By: #### B MP, ADIFF, CBC, GFR, ANEU #### [place] [address] RBC 4.58 10 6/mcL Normal 4.10-5.30 [facility] Comment on above: Performed By: #### B MP, ADIFF, CBC, GFR, ANEU #### [place] [address] WBC 8.1 10 3/mcL Normal 4.5-10.8 [facility] Comment on above: Performed By: #### B MP, ADIFF, CBC, GFR, ANEU #### [place] [id number] [place] [address] LABORATORYOrdered By: SYSTEM SYSTEM on 08-20-2024 Basophils (Bld) [#/Vol] 0.1 103/mcL Normal 0.0 - 0.3 10^3/mcL Workflow SS Basophils/100 WBC (Bld) 1.1 % Normal 0.0 - 2.5 % AH Workflow SS Calcium [Mass/Vol] 9.8 mg/dL Normal 8.7 - 10. 4 mg/dL ADM SS Chloride [Moles/Vol] 95 mmol/L Low 98 - 11 0 mEq/L ADM SS CO2 [Moles/Vol] 34 mmol/L High 22 - 32 mEq/L ADM SS Creatinine [Mass/Vol] 1.04 mg/dL Normal 0.50 - 1.20 mg/dL AH ADM SS Comment on above: Interpretive Data: T esting performed on Nexx Studio analyzer using enzymatic creatinine methodology. Electrolyte Balance 5.0 mEq/L Normal 4.0 - 15 .0 mEq/L ADM SS Eosinophils (Bld) [#/Vol] 0.3 103/mcL Normal 0.0 - 0.7 10^3/mcL AH Workflow SS Eosinophils/100 WBC (Bld) 3.6 % Normal 0.0 - 6.0 % AH Workflow SS Erythrocyte distribution width (RBC) [Ratio] 14.0 % Normal 11.5 - 15.5 % AH Workflow SS Estimated Glomerular Filtration Rate 55 ml/min/1.73sqm Invalid Interpretation Code Chemistry S Comment on above: Interpretive Data: Stages of Chronic Kidney Disease (CKD) Stage [...] the eGFR calculation was updated to the 2021 CKD-EPI creatinine equation without a race factor to calculate the eGFR results. Glucose [Mass/Vol] 244 mg/dL High 82 - 115 mg/dL AH ADM SS Hematocrit (Bld) [Volume fraction] 41.9 % Normal 34.0 - 46.0 % AH Workflow SS Hemoglobin (Bld) [Mass/Vol] 13.6 G/dL Normal 12.0 - 16.0 G/dL AH Workflow SS Lymphocytes (Bld) [#/Vol] 1.7 103/mcL Normal 0.9 - 4.3 10^3/mcL AH Workflow SS Lymphocytes/100 WBC (Bld) 20.8 % Normal 20.0 - 40.0 % AH Workflow SS MCH (RBC) [Entitic mass] 29.7 pg Normal 27.0 - 33.0 pg AH Workflow SS MCHC 32.4 G/dL Normal 32.0 - 36.0 G/dL AH Workflow SS MCV (RBC) [Entitic vol] 91.5 fL Normal 80.0 - 99.0 fL AH Workflow SS Monocytes (Bld) [#/Vol] 0.9 103/mcL Normal 0.1 - 1.4 10^3/mcL AH Workflow SS Monocytes/100 WBC (Bld) 11.4 % Normal 2.0 - 13.0 % AH Workflow SS Neutrophils (Bld) [#/Vol] 5.1 103/mcL Normal 2.3 - 8.1 10^3/mcL AH Workflow SS Neutrophils/100 WBC (Bld) 63.1 % Normal 50.0 - 75.0 % AH Workflow SS Platelet mean volume (Bld) [Entitic vol] 11.0 fL High 6.6 - 10.5 fL AH Workflow SS Platelets (Bld) [#/Vol] 301 103/mcL Normal 150 - 450 10^3/mcL AH Workflow SS Potassium [Moles/Vol] 4.8 mmol/L Normal 3.5 - 5.0 mEq/L AH ADM SS Comment on above: Result Comment: Spec imen slightly hemolyzed. RBC (Bld) [#/Vol] 4.58 106/mcL Normal 4.10 - 5.3 0 10^6/mcL AH Workflow SS Sodium [Moles/Vol] 134 mmol/L Low 136 - 145 mEq/L AH ADM SS Urea nitrogen [Mass/Vol] 31.0 mg/dL High 8.0 - 22.0 mg/dL AH ADM SS Urea nitrogen/Creatinine [Mass ratio] 29.8 ratio High 10.0 - 22.0 ratio AH ADM SS WBC (Bld) [#/Vol] 8.1 103/mcL Normal 4.5 - 10.8 10^3/mcL Workflow SS XR CHEST 1 VIEWon 08-18-2024 XR CHEST 1 VIEW ORIGINAL EXAMINATION: ONE XRAY VIEW OF THE [...] Date: 08/18/2024 3:14:15 PM Ordering Provider: NANDO Anderson [facility] .Auto Diffon 08-16-2024 Basophil, Absolute 0.1 10 3/mcL Normal 0.0-0.3 [facility] Comment on above: Performed By: #### A DIFF, CBC, ANEU, GFR, BMP #### [address] [address] Basophils/100 WBC (Bld) 0.7 % Normal 0.0-2.5 [facility] Comment on above: Performed By: #### A DIFF, CBC, ANEU, GFR, BMP #### [address] [address] Eosinophil, Absolute 0.3 10 3/mcL Normal 0.0-0.7 [facility] Comment on above: Performed By: #### A DIFF, CBC, ANEU, GFR, BMP #### [address] [address] Eosinophils/100 WBC (Bld) 2.1 % Normal 0.0-6.0 [facility] Comment on above: Performed By: #### A DIFF, CBC, ANEU, GFR, BMP #### [address] [address] Lymphocyte, Absolute 1.9 10 3/mcL Normal 0.9-4.3 [facility] Comment on above: Performed By: #### A DIFF, CBC, ANEU, GFR, BMP #### [address] [address] Lymphocytes/100 WBC (Bld) 14.8 % Low 20.0-40.0 [facility] Comment on above: Performed By: #### A DIFF, CBC, ANEU, GFR, BMP #### [address] [address] Monocyte, Absolute 1.2 10 3/mcL Normal 0.1-1.4 [facility] Comment on above: Performed By: #### A DIFF, CBC, ANEU, GFR, BMP #### [address] [address] Monocytes/100 WBC (Bld) 9.8 % Normal 2.0-13.0 [facility] Comment on above: Performed By: #### A DIFF, CBC, ANEU, GFR, BMP #### [address] [address] Neutrophils/100 WBC (Bld) 72.6 % Normal 50.0-75.0 [facility] Comment on above: Performed By: #### A DIFF, CBC, ANEU, GFR, BMP #### [address] [address] .GFRon 08-16-2024 Estimated Glomerular Filtration Rate 58 ml/min/1.73sqm Normal [facility] Comment on above: Result Comment: Stages of Chronic Kidney Disease [...] calculate the eGFR results. Performed By: #### A DIFF, CBC, ANEU, GFR, BMP #### [address] [address] .NEUABSon 08-16-2024 Neutrophil, Absolute 9.2 10 3/mcL High 2.3-8.1 [facility] Comment on above: Performed By: #### A DIFF, CBC, ANEU, GFR, BMP #### [place] [address] BMPon 08-16-2024 BUN/Creatinine Ratio 34.3 ratio High 10.0-22.0 [facility] Comment on above: Performed By: #### A DIFF, CBC, ANEU, GFR, BMP #### [place] [address] Calcium [Mass/Vol] 9.0 mg/dL Normal 8.7-10.[address] [facility] Comment on above: Performed By: #### A DIFF, CBC, ANEU, GFR, BMP #### [place] [address] Chloride [Moles/Vol] 100 mmol/L Normal 98-110 [facility] Comment on above: Performed By: #### A DIFF, CBC, ANEU, GFR, BMP #### [place] [address] CO2 [Moles/Vol] 30 mmol/L Normal 22-32 [facility] Comment on above: Performed By: #### A DIFF, CBC, ANEU, GFR, BMP #### [place] [address] Creatinine [Mass/Vol] 0.99 mg/dL Normal 0.50-1.20 [facility] Comment on above: Result Comment: Test ing performed on Nexx Studio analyzer using enzymatic creatinine methodology. Performed By: #### A DIFF, CBC, ANEU, GFR, BMP #### [place] [id number] Electrolyte Balance 5.0 mEq/L Normal 4.0-15.0 [facility] Comment on above: Performed By: #### A DIFF, CBC, ANEU, GFR, BMP #### [place] [id number] Glucose [Mass/Vol] 259 mg/dL High 82-[address] [facility] Comment on above: Performed By: #### A DIFF, CBC, ANEU, GFR, BMP #### [place] [id number] Potassium [Moles/Vol] 5.0 mmol/L Normal 3.5-5.0 [facility] Comment on above: Performed By: #### A DIFF, CBC, ANEU, GFR, BMP #### [place] [id number] Sodium [Moles/Vol] 135 mmol/L Low 136-[address] [facility] Comment on above: Performed By: #### A DIFF, CBC, ANEU, GFR, BMP #### [place] [address] Urea nitrogen [Mass/Vol] 34.0 mg/dL High 8.0-22.0 [facility] Comment on above: Performed By: #### A DIFF, CBC, ANEU, GFR, BMP #### [place] [id number] CBCon 08-16-2024 Erythrocyte distribution width (RBC) [Ratio] 13.7 % Normal 11.5-15.5 [facility] Comment on above: Performed By: #### A DIFF, CBC, ANEU, GFR, BMP #### [place] [id number] Hematocrit (Bld) [Volume fraction] 43.3 % Normal 34.0-46.0 [facility] Comment on above: Performed By: #### A DIFF, CBC, ANEU, GFR, BMP #### [place] [id number] Hgb 13.9 G/dL Normal 12.0-16.0 [facility] Comment on above: Performed By: #### A DIFF, CBC, ANEU, GFR, BMP #### [place] [id number] MCH (RBC) [Entitic mass] 30.0 pg Normal 27.0-33.0 [facility] Comment on above: Performed By: #### A DIFF, CBC, ANEU, GFR, BMP #### [place] [address] MCHC 32.1 G/dL Normal 32.0-36.0 [facility] Comment on above: Performed By: #### A DIFF, CBC, ANEU, GFR, BMP #### [place] [address] MCV (RBC) [Entitic vol] 93.6 fL Normal 80.0-99.0 [facility] Comment on above: Performed By: #### A DIFF, CBC, ANEU, GFR, BMP #### [place] [address] Platelet 230 10 3/mcL Normal 150-450 [facility] Comment on above: Performed By: #### A DIFF, CBC, ANEU, GFR, BMP #### [place] [address] Platelet mean volume (Bld) [Entitic vol] 10.7 fL High 6.6-10.5 [facility] Comment on above: Performed By: #### A DIFF, CBC, ANEU, GFR, BMP #### [place] [address] RBC 4.63 10 6/mcL Normal 4.10-5.30 [facility] Comment on above: Performed By: #### A DIFF, CBC, ANEU, GFR, BMP #### [place] [address] WBC 12.7 10 3/mcL High 4.5-10.8 [facility] Comment on above: Performed By: #### A DIFF, CBC, ANEU, GFR, BMP #### [place] [address] LABORATORYOrdered By: Marily Panda on 08-16-2024 Blood Glucose Interventions Administered agent to decrease blood sugar (08/16/24 12:23 PM) Tyler Radha Work Phone: Blood Glucose Interventions Retest (08/16/24 10:15 AM) Tyler Garcia Work Phone: Bacteria identified Cx Nom ( Bld)on 08-15-2024 Bacteria identified Cx Nom (Unsp spec) NO GROWTH DAY 5 OF 5 [facility] CARDIAC RHYTHMon 08-15-2024 [facility] CBC,PLATELETSon 08-15-2024 Erythrocyte distribution width (RBC) [Ratio] 13.4 % 10.8 - 14.9 % [facility] Hematocrit (Bld) [Volume fraction] 43.8 % 34.9 - 44.3 % [facility] Hemoglobin (Bld) [Mass/Vol] 13.5 g/dL 11.4 - 15.2 g/dL [facility] Interpretation and review of laboratory results Abnormal [facility] MCH (RBC) [Entitic mass] 28.9 pg 25.9 - 33.9 pg [facility] MCHC (RBC) [Mass/Vol] 30.8 g/dL Low 31.4 - 35.9 g/dL [facility] MCV (RBC) [Entitic vol] 93.8 fL 79.6 - 97.7 fL [facility] Platelet mean volume (Bld) [Entitic vol] 12 fL 8.5 - 12.2 fL [facility] Platelets (Bld) [#/Vol] 252 10*3/uL 150 - 393 K/uL [facility] RBC (Bld) [#/Vol] 4.67 10*6/uL [facility] WBC (Bld) [#/Vol] 11.94 10*3/uL High 3.99 - 11.19 K/uL [facility] Hematocrit (Bld) [Volume fraction] 43.8 % Normal 34.9-44.3 [facility] Comment on above: Performed By: #### X M #### [facility] (DEFAULT) [address] [place] [address] Hemoglobin (Bld) [Mass/Vol] 13.5 g/dL Normal 11.4-15.2 [facility] Comment on above: Performed By: #### X M #### [facility] (DEFAULT) [address] [address] MCV (RBC) [Entitic vol] 93.8 fL Normal 79.6-97.7 O [facility] Comment on above: Performed By: #### X M #### [facility] (DEFAULT) [address] [address] Mean Cell Hgb 28.9 pg Normal 25.9-33.9 [facility] Comment on above: Performed By: #### X M #### [facility] (DEFAULT) [address] [address] Mean Cell Hgb Conc 30.8 g/dL Low 31.4-35.9 [facility] Comment on above: Performed By: #### X M #### [facility] (DEFAULT) [address] [address] Platelet mean volume (Bld) [Entitic vol] 12.0 fL Normal 8.5-12.2 [facility] Comment on above: Performed By: #### X M #### [facility] (DEFAULT) [address] [address] Platelets (Bld) [#/Vol] 252 10*3/uL Normal 150-393 [facility] Comment on above: Performed By: #### X M #### [facility] (DEFAULT) [address] [address] RBC (Bld) [#/Vol] 4.67 10*6/uL Normal 3.91-5.04 [facility] Comment on above: Performed By: #### X M #### [facility] (DEFAULT) [address] [address] RBC Distribution 13.4 % Normal 10.8-14.9 [facility] Comment on above: Performed By: #### X M #### [facility] (DEFAULT) [address] [place] [address] WBC (Bld) [#/Vol] 11.94 10*3/uL High 3.99-11.19 [facility] Comment on above: Performed By: #### X M #### [facility] (DEFAULT) [address] [place] [address] CHEM 7 (LYTES,BUN,CREA,GLUC) on 08-15-2024 Anion gap [Moles/Vol] 16 mmol/L 7 - 17 mmol/L [facility] Chloride [Moles/Vol] 99 mmol/L 98 - 10 8 mmol/L [facility] CO2 [Moles/Vol] 25 mmol/L 21 - 31 mmol/L [facility] Creatinine [Mass/Vol] 1.27 mg/dL High 0.50 - 1.20 mg/dL [facility] eGFR, CKD-EPI, Female 43 Low - PINF [facility] Glucose [Mass/Vol] 214 mg/dL High 70 - 179 mg/dL [facility] Interpretation and review of laboratory results Abnormal [facility] Osmolality Calc [Osmolality] 306 High [facility] Potassium [Moles/Vol] 4.8 mmol/L 3.5 - 5.0 mmol/L [facility] Sodium [Moles/Vol] 135 mmol/L 135 - 145 mmol/L [facility] Urea nitrogen [Mass/Vol] 51 mg/dL High 7 - 25 mg/dL [facility] Urea nitrogen/Creatinine [Mass ratio] 40 mg/mg [facility] Anion gap [Moles/Vol] 16 mmol/L Normal 7-17 [facility] Comment on above: Performed By: #### H [facility] #### [facility] (DEFAULT) [address] [place] [address] Chloride [Moles/Vol] 99 mmol/L Normal 98-108 [facility] Comment on above: Performed By: #### H [facility] #### [facility] (DEFAULT) [address] [place] [address] CO2 [Moles/Vol] 25 mmol/L Normal 21-31 [facility] Comment on above: Performed By: #### H EMO #### [facility] (DEFAULT) [address] [place] [address] Creatinine [Mass/Vol] 1.27 mg/dL High 0.50-1.20 [facility] Comment on above: Performed By: #### H EMO #### [facility] (DEFAULT) [address] [place] [address] GFR/1.73 sq M.predicted among non-blacks MDRD (S/P/Bld) [Vol rate/Area] 43 mL/min/{1.73_m2} Low >=60 [facility] Comment on above: Result Comment: Repo rted eGFR is based on the CKD-EPI 2020 equation using creatinine, age, and sex. Performed By: #### H [facility] #### [facility] (DEFAULT) [address] [place] [address] Glucose [Mass/Vol] 214 mg/dL High Nonfastin -179 mg/dL; Fastin-99 [facility] Comment on above: Performed By: #### H EMO #### [facility] (DEFAULT) [address] [place] [address] Osmolality [Osmolality] 306 mosm/kg High 278-305 [facility] Comment on above: Performed By: #### H EMO #### [facility] (DEFAULT) [address] [place] [address] Potassium [Moles/Vol] 4.8 mmol/L Normal 3.5-5.0 [facility] Comment on above: Performed By: #### H EMOGC #### [facility] (DEFAULT) [address] [place] [address] Sodium [Moles/Vol] 135 mmol/L Normal 135-145 [facility] Comment on above: Performed By: #### H EMOGC #### [facility] (DEFAULT) [address] [place] [address] Urea nitrogen [Mass/Vol] 51 mg/dL High 7-25 [facility] Comment on above: Performed By: #### H EMOGC #### [facility] (DEFAULT) [address] [place] [address] Urea nitrogen/Creatinine [Mass ratio] 40 mg/mg Normal [facility] Comment on above: Performed By: #### H EMO #### [facility] (DEFAULT) [address] [place] [address] GLUCOSE POCon 08-15-2024 Glucose [Mass/Vol] 190 mg/dL High 70 - 179 mg/dL [facility] Interpretation and review of laboratory results Abnormal [facility] Glucose [Mass/Vol] 146 mg/dL 70 - 179 mg/dL [facility] POC Sample Type CAPBL [facility] Glucose [Mass/Vol] 215 mg/dL High 70 - 179 mg/dL [facility] Interpretation and review of laboratory results Abnormal [facility] MAGNESIUMon 08-15-2024 Interpretation and review of laboratory results Normal [facility] Magnesium [Mass/Vol] 1.6 mg/dL 1.6 - 2 .6 mg/dL [facility] Magnesium [Mass/Vol] 1.6 mg/dL Normal 1.6-2.6 [facility] Comment on above: Performed By: #### H EMO #### [facility] (DEFAULT) [address] [place] [address] No Panel Informationon 08-15 [facility] CBC,PLATELETSon 08-14-2024 Erythrocyte distribution width (RBC) [Ratio] 13.4 % 10.8 - 14.9 % [facility] Hematocrit (Bld) [Volume fraction] 47.9 % High 34.9 - 44.3 % [facility] Hemoglobin (Bld) [Mass/Vol] 14.3 g/dL 11.4 - 15.2 g/dL [facility] Interpretation and review of laboratory results Abnormal [facility] MCH (RBC) [Entitic mass] 29.3 pg 25.9 - 33.9 pg [facility] MCHC (RBC) [Mass/Vol] 29.9 g/dL Low 31.4 - 35.9 g/dL [facility] MCV (RBC) [Entitic vol] 98.2 fL High 79.6 - 97.7 fL [facility] Platelet mean volume (Bld) [Entitic vol] 11.3 fL 8.5 - 12.2 fL [facility] Platelets (Bld) [#/Vol] 229 10*3/uL 150 - 393 K/uL [facility] RBC (Bld) [#/Vol] 4.88 10*6/uL [facility] WBC (Bld) [#/Vol] 12.14 10*3/uL High 3.99 - 11.19 K/uL [facility] Hematocrit (Bld) [Volume fraction] 47.9 % High 34.9-44.3 [facility] Comment on above: Performed By: #### X M #### [facility] (DEFAULT) [address] [place] [address] Hemoglobin (Bld) [Mass/Vol] 14.3 g/dL Normal 11.4-15.2 [facility] Comment on above: Performed By: #### X M #### [facility] (DEFAULT) [address] [place] [address] MCV (RBC) [Entitic vol] 98.2 fL High 79.6-97.7 O [facility] Comment on above: Performed By: #### X M #### [facility] (DEFAULT) [address] [place] [address] Mean Cell Hgb 29.3 pg Normal 25.9-33.9 [facility] Comment on above: Performed By: #### X M #### [facility] (DEFAULT) [address] [address] Mean Cell Hgb Conc 29.9 g/dL Low 31.4-35.9 [facility] Comment on above: Performed By: #### X M #### [facility] (DEFAULT) [address] [place] [address] Platelet mean volume (Bld) [Entitic vol] 11.3 fL Normal 8.5-12.2 [facility] Comment on above: Performed By: #### X M #### [facility] (DEFAULT) [address] [address] Platelets (Bld) [#/Vol] 229 10*3/uL Normal 150-393 [facility] Comment on above: Performed By: #### X M #### [facility] (DEFAULT) [address] [address] RBC (Bld) [#/Vol] 4.88 10*6/uL Normal 3.91-5.04 [facility] Comment on above: Performed By: #### X M #### [facility] (DEFAULT) [address] [address] RBC Distribution 13.4 % Normal 10.8-14.9 [facility] Comment on above: Performed By: #### X M #### [facility] (DEFAULT) [address] [address] WBC (Bld) [#/Vol] 12.14 10*3/uL High 3.99-11.19 [facility] Comment on above: Performed By: #### X M #### [facility] (DEFAULT) [address] [place] [address] CHEM 7 (LYTES,BUN,CREA,GLUC) on 08-14-2024 Anion gap [Moles/Vol] 16 mmol/L 7 - 17 mmol/L [facility] Chloride [Moles/Vol] 101 mmol/L 98 - 10 8 mmol/L [facility] CO2 [Moles/Vol] 23 mmol/L 21 - 31 mmol/L [facility] Creatinine [Mass/Vol] 1.15 mg/dL 0.50 - 1.20 mg/dL [facility] eGFR, CKD-EPI, Female 48 Low - PINF [facility] Glucose [Mass/Vol] 208 mg/dL High 70 - 179 mg/dL [facility] Interpretation and review of laboratory results Abnormal [facility] Osmolality Calc [Osmolality] 304 [facility] Potassium [Moles/Vol] 4.7 mmol/L 3.5 - 5.0 mmol/L [facility] Sodium [Moles/Vol] 135 mmol/L 135 - 145 mmol/L [facility] Urea nitrogen [Mass/Vol] 47 mg/dL High 7 - 25 mg/dL [facility] Urea nitrogen/Creatinine [Mass ratio] 41 mg/mg [facility] Anion gap [Moles/Vol] 16 mmol/L Normal 7-17 [facility] Comment on above: Performed By: #### B LDCULT #### [facility] (DEFAULT) [address] [place] [address] Chloride [Moles/Vol] 101 mmol/L Normal 98-108 [facility] Comment on above: Performed By: #### B LDCULT #### [facility] (DEFAULT) [address] [place] [address] CO2 [Moles/Vol] 23 mmol/L Normal 21-31 [facility] Comment on above: Performed By: #### B LDCULT #### [facility] (DEFAULT) [address] [place] [address] Creatinine [Mass/Vol] 1.15 mg/dL Normal 0.50-1.20 [facility] Comment on above: Performed By: #### B LDCULT #### [facility] (DEFAULT) [address] [place] [address] GFR/1.73 sq M.predicted among non-blacks MDRD (S/P/Bld) [Vol rate/Area] 48 mL/min/{1.73_m2} Low >=60 [facility] Comment on above: Result Comment: Repo rted eGFR is based on the CKD-EPI 2020 equation using creatinine, age, and sex. Performed By: #### B LDCULT #### [facility] (DEFAULT) [address] [place] [address] Glucose [Mass/Vol] 208 mg/dL High Nonfastin -179 mg/dL; Fastin-99 [facility] Comment on above: Performed By: #### B LDCULT #### [facility] (DEFAULT) [address] [place] [address] Osmolality [Osmolality] 304 mosm/kg Normal 278-305 [facility] Comment on above: Performed By: #### B LDCULT #### [facility] (DEFAULT) [address] [place] [address] Potassium [Moles/Vol] 4.7 mmol/L Normal 3.5-5.0 [facility] Comment on above: Performed By: #### B LDCULT #### [facility] (DEFAULT) [address] [place] [address] Sodium [Moles/Vol] 135 mmol/L Normal 135-145 [facility] Comment on above: Performed By: #### B LDCULT #### [facility] (DEFAULT) [address] [place] [address] Urea nitrogen [Mass/Vol] 47 mg/dL High 7-25 [facility] Comment on above: Performed By: #### B LDCULT #### [facility] (DEFAULT) [address] [place] [address] Urea nitrogen/Creatinine [Mass ratio] 41 mg/mg Normal [facility] Comment on above: Performed By: #### B LDCULT #### [facility] (DEFAULT) [address] [place] [address] GLUCOSE POCon 08-14-2024 Glucose [Mass/Vol] 204 mg/dL High 70 - 179 mg/dL [facility] Interpretation and review of laboratory results Abnormal [facility] POC Sample Type CAPBL [facility] Glucose [Mass/Vol] 264 mg/dL High 70 - 179 mg/dL [facility] Interpretation and review of laboratory results Abnormal [facility] POC Sample Type CAPBL [facility] Glucose [Mass/Vol] 189 mg/dL High 70 - 179 mg/dL [facility] Interpretation and review of laboratory results Abnormal [facility] POC Sample Type CAPBL [facility] MAGNESIUMon 08-14-2024 Interpretation and review of laboratory results Normal [facility] Magnesium [Mass/Vol] 1.6 mg/dL 1.6 - 2 .6 mg/dL [facility] Magnesium [Mass/Vol] 1.6 mg/dL Normal 1.6-2.6 [facility] Comment on above: Performed By: #### B LDCULT #### [facility] (DEFAULT) [address] [place], [place] [address] No Panel Informationon 08-14 [facility] CBC,PLATELETSon 08-13-2024 Erythrocyte distribution width (RBC) [Ratio] 13.4 % 10.8 - 14.9 % [facility] Hematocrit (Bld) [Volume fraction] 45.7 % High 34.9 - 44.3 % [facility] Hemoglobin (Bld) [Mass/Vol] 14.3 g/dL 11.4 - 15.2 g/dL [facility] Interpretation and review of laboratory results Abnormal [facility] MCH (RBC) [Entitic mass] 29.5 pg 25.9 - 33.9 pg [facility] MCHC (RBC) [Mass/Vol] 31.3 g/dL Low 31.4 - 35.9 g/dL [facility] MCV (RBC) [Entitic vol] 94.2 fL 79.6 - 97.7 fL [facility] Platelet mean volume (Bld) [Entitic vol] 11.7 fL 8.5 - 12.2 fL [facility] Platelets (Bld) [#/Vol] 245 10*3/uL 150 - 393 K/uL [facility] RBC (Bld) [#/Vol] 4.85 10*6/uL [facility] WBC (Bld) [#/Vol] 12.02 10*3/uL High 3.99 - 11.19 K/uL [facility] Hematocrit (Bld) [Volume fraction] 45.7 % High 34.9-44.3 [facility] Comment on above: Performed By: #### [facility] #### [facility] (DEFAULT) [address] [address] Hemoglobin (Bld) [Mass/Vol] 14.3 g/dL Normal 11.4-15.2 [facility] Comment on above: Performed By: #### H [facility] #### [facility] (DEFAULT) [address] [address] MCV (RBC) [Entitic vol] 94.2 fL Normal 79.6-97.7 O [facility] Comment on above: Performed By: #### H EMOGC #### [facility] (DEFAULT) [address] [address] Mean Cell Hgb 29.5 pg Normal 25.9-33.9 [facility] Comment on above: Performed By: #### H EMOGC #### [facility] (DEFAULT) [address] [place] [address] Mean Cell Hgb Conc 31.3 g/dL Low 31.4-35.9 [facility] Comment on above: Performed By: #### H EMOGC #### [facility] (DEFAULT) [address] [place] [address] Platelet mean volume (Bld) [Entitic vol] 11.7 fL Normal 8.5-12.2 [facility] Comment on above: Performed By: #### H EMOGC #### [facility] (DEFAULT) [address] [place] [address] Platelets (Bld) [#/Vol] 245 10*3/uL Normal 150-393 [facility] Comment on above: Performed By: #### H EMOGC #### [facility] (DEFAULT) [address] [place] [address] RBC (Bld) [#/Vol] 4.85 10*6/uL Normal 3.91-5.04 [facility] Comment on above: Performed By: #### H EMO #### [facility] (DEFAULT) [address] [place] [address] RBC Distribution 13.4 % Normal 10.8-14.9 [facility] Comment on above: Performed By: #### H EMOGC #### [facility] (DEFAULT) [address] [place] [address] WBC (Bld) [#/Vol] 12.02 10*3/uL High 3.99-11.19 [facility] Comment on above: Performed By: #### H EMOGC #### [facility] (DEFAULT) [address] [place] [address] CHEM 7 (LYTES,BUN,CREA,GLUC) on 08-13-2024 Anion gap [Moles/Vol] 15 mmol/L 7 - 17 mmol/L [facility] Chloride [Moles/Vol] 104 mmol/L 98 - 10 8 mmol/L [facility] CO2 [Moles/Vol] 23 mmol/L 21 - 31 mmol/L [facility] Creatinine [Mass/Vol] 1.18 mg/dL 0.50 - 1.20 mg/dL [facility] eGFR, CKD-EPI, Female 47 Low - PINF [facility] Glucose [Mass/Vol] 225 mg/dL High 70 - 179 mg/dL [facility] Interpretation and review of laboratory results Abnormal [facility] Osmolality Calc [Osmolality] 311 High [facility] Potassium [Moles/Vol] 4.6 mmol/L 3.5 - 5.0 mmol/L [facility] Sodium [Moles/Vol] 137 mmol/L 135 - 145 mmol/L [facility] Urea nitrogen [Mass/Vol] 55 mg/dL High 7 - 25 mg/dL [facility] Urea nitrogen/Creatinine [Mass ratio] 47 mg/mg [facility] Anion gap [Moles/Vol] 15 mmol/L Normal 7-17 [facility] Comment on above: Performed By: #### H [facility] #### [facility] (DEFAULT) [address] [address] Chloride [Moles/Vol] 104 mmol/L Normal 98-108 [facility] Comment on above: Performed By: #### H [facility] #### [facility] (DEFAULT) [address] [place] [address] CO2 [Moles/Vol] 23 mmol/L Normal 21-31 [facility] Comment on above: Performed By: #### H [facility] #### [facility] (DEFAULT) [address] [place] [address] Creatinine [Mass/Vol] 1.18 mg/dL Normal 0.50-1.20 [facility] Comment on above: Performed By: #### H [facility] #### [facility] (DEFAULT) [address] [address] GFR/1.73 sq M.predicted among non-blacks MDRD (S/P/Bld) [Vol rate/Area] 47 mL/min/{1.73_m2} Low >=60 [facility] Comment on above: Result Comment: Repo rted eGFR is based on the CKD-EPI 2020 equation using creatinine, age, and sex. Performed By: #### H EMOGC #### [facility] (DEFAULT) [address] [place] [address] Glucose [Mass/Vol] 225 mg/dL High Nonfastin -179 mg/dL; Fastin-99 [facility] Comment on above: Performed By: #### H EMOGC #### [facility] (DEFAULT) [address] [place] [address] Osmolality [Osmolality] 311 mosm/kg High 278-305 [facility] Comment on above: Performed By: #### H EMOGC #### [facility] (DEFAULT) [address] [place] [address] Potassium [Moles/Vol] 4.6 mmol/L Normal 3.5-5.0 [facility] Comment on above: Performed By: #### H EMOGC #### [facility] (DEFAULT) [address] [place] [address] Sodium [Moles/Vol] 137 mmol/L Normal 135-145 [facility] Comment on above: Performed By: #### H EMOGC #### [facility] (DEFAULT) [address] [place] [address] Urea nitrogen [Mass/Vol] 55 mg/dL High 7-25 [facility] Comment on above: Performed By: #### H EMOGC #### [facility] (DEFAULT) [address] [place] [address] Urea nitrogen/Creatinine [Mass ratio] 47 mg/mg Normal [facility] Comment on above: Performed By: #### H EMOGC #### [facility] (DEFAULT) [address] [place] [address] GLUCOSE POCon 08-13-2024 Glucose [Mass/Vol] 195 mg/dL High 70 - 179 mg/dL [facility] Interpretation and review of laboratory results Abnormal [facility] POC Sample Type [facility] Glucose [Mass/Vol] 198 mg/dL High 70 - 179 mg/dL [facility] Interpretation and review of laboratory results Abnormal [facility] POC Sample Type CAPBL [facility] Glucose [Mass/Vol] 158 mg/dL 70 - 179 mg/dL [facility] POC Sample Type [facility]BL [facility] Glucose [Mass/Vol] 211 mg/dL High 70 - 179 mg/dL [facility] Interpretation and review of laboratory results Abnormal [facility] POC Sample Type CAPBL [facility] Glucose [Mass/Vol] 240 mg/dL High 70 - 179 mg/dL [facility] Interpretation and review of laboratory results Abnormal [facility] POC Sample Type CAPBL [facility] MAGNESIUMon 08-13-2024 Interpretation and review of laboratory results Normal [facility] Magnesium [Mass/Vol] 1.8 mg/dL 1.6 - 2 .6 mg/dL [facility] Magnesium [Mass/Vol] 1.8 mg/dL Normal 1.6-2.6 [facility] Comment on above: Performed By: #### H [facility] #### [facility] (DEFAULT) [address] [place] [address] No Panel Informationon 08-13 [facility] CBC,PLATELETSon 08-12-2024 Erythrocyte distribution width (RBC) [Ratio] 13.6 % 10.8 - 14.9 % [facility] Hematocrit (Bld) [Volume fraction] 45.1 % High 34.9 - 44.3 % [facility] Hemoglobin (Bld) [Mass/Vol] 14.3 g/dL 11.4 - 15.2 g/dL [facility] Interpretation and review of laboratory results Abnormal [facility] MCH (RBC) [Entitic mass] 29.7 pg 25.9 - 33.9 pg [facility] MCHC (RBC) [Mass/Vol] 31.7 g/dL 31.4 - 35.9 g/dL [facility] MCV (RBC) [Entitic vol] 93.6 fL 79.6 - 97.7 fL [facility] Platelet mean volume (Bld) [Entitic vol] 11.4 fL 8.5 - 12.2 fL [facility] Platelets (Bld) [#/Vol] 241 10*3/uL 150 - 393 K/uL [facility] RBC (Bld) [#/Vol] 4.82 10*6/uL [facility] WBC (Bld) [#/Vol] 14.32 10*3/uL High 3.99 - 11.19 K/uL [facility] Hematocrit (Bld) [Volume fraction] 45.1 % High 34.9-44.3 [facility] Comment on above: Performed By: #### H [facility] #### [facility] (DEFAULT) [address] [address] Hemoglobin (Bld) [Mass/Vol] 14.3 g/dL Normal 11.4-15.2 [facility] Comment on above: Performed By: #### H [facility] #### [facility] (DEFAULT) [address] [place] [address] MCV (RBC) [Entitic vol] 93.6 fL Normal 79.6-97.7 O [facility] Comment on above: Performed By: #### H [facility] #### [facility] (DEFAULT) [address] [address] Mean Cell Hgb 29.7 pg Normal 25.9-33.9 [facility] Comment on above: Performed By: #### H [facility] #### [facility] (DEFAULT) [address] [place] [address] Mean Cell Hgb Conc 31.7 g/dL Normal 31.4-35.9 [facility] Comment on above: Performed By: #### H EMOGC #### [facility] (DEFAULT) [address] [place] [address] Platelet mean volume (Bld) [Entitic vol] 11.4 fL Normal 8.5-12.2 [facility] Comment on above: Performed By: #### H EMOGC #### [facility] (DEFAULT) [address] [address] Platelets (Bld) [#/Vol] 241 10*3/uL Normal 150-393 [facility] Comment on above: Performed By: #### H EMO #### [facility] (DEFAULT) [address] [place] [address] RBC (Bld) [#/Vol] 4.82 10*6/uL Normal 3.91-5.04 [facility] Comment on above: Performed By: #### H EMO #### [facility] (DEFAULT) [address] [address] RBC Distribution 13.6 % Normal 10.8-14.9 [facility] Comment on above: Performed By: #### H EMOGC #### [facility] (DEFAULT) [address] [address] WBC (Bld) [#/Vol] 14.32 10*3/uL High 3.99-11.19 [facility] Comment on above: Performed By: #### H EMOGC #### [facility] (DEFAULT) [address] [address] CHEM 7 (LYTES,BUN,CREA,GLUC) on 08-12-2024 Anion gap [Moles/Vol] 15 mmol/L 7 - 17 mmol/L [facility] Chloride [Moles/Vol] 104 mmol/L 98 - 10 8 mmol/L [facility] CO2 [Moles/Vol] 27 mmol/L 21 - 31 mmol/L [facility] Creatinine [Mass/Vol] 1.36 mg/dL High 0.50 - 1.20 mg/dL [facility] eGFR, CKD-EPI, Female 40 Low - PINF [facility] Glucose [Mass/Vol] 126 mg/dL 70 - 179 mg/dL [facility] Interpretation and review of laboratory results Abnormal [facility] Osmolality Calc [Osmolality] 313 High [facility] Potassium [Moles/Vol] 4.5 mmol/L 3.5 - 5.0 mmol/L [facility] Sodium [Moles/Vol] 141 mmol/L 135 - 145 mmol/L [facility] Urea nitrogen [Mass/Vol] 56 mg/dL High 7 - 25 mg/dL [facility] Urea nitrogen/Creatinine [Mass ratio] 41 mg/mg [facility] Anion gap [Moles/Vol] 15 mmol/L Normal 7-17 [facility] Comment on above: Performed By: #### T YPEC #### [facility] (DEFAULT) [address] [address] Chloride [Moles/Vol] 104 mmol/L Normal 98-108 [facility] Comment on above: Performed By: #### T YPEC #### [facility] (DEFAULT) [address] [place] [address] CO2 [Moles/Vol] 27 mmol/L Normal 21-31 [facility] Comment on above: Performed By: #### T YPEC #### [facility] (DEFAULT) [address] [place] [address] Creatinine [Mass/Vol] 1.36 mg/dL High 0.50-1.20 [facility] Comment on above: Performed By: #### T YPEC #### [facility] (DEFAULT) [address] [place] [address] GFR/1.73 sq M.predicted among non-blacks MDRD (S/P/Bld) [Vol rate/Area] 40 mL/min/{1.73_m2} Low >=60 [facility] Comment on above: Result Comment: Repo rted eGFR is based on the CKD-EPI 2020 equation using creatinine, age, and sex. Performed By: #### T YPEC #### [facility] (DEFAULT) [address] [place] [address] Glucose [Mass/Vol] 126 mg/dL Normal Nonfastin -179 mg/dL; Fastin-99 [facility] Comment on above: Performed By: #### T YPEC #### [facility] (DEFAULT) [address] [place] [address] Osmolality [Osmolality] 313 mosm/kg High 278-305 [facility] Comment on above: Performed By: #### T YPEC #### [facility] (DEFAULT) [address] [place] [address] Potassium [Moles/Vol] 4.5 mmol/L Normal 3.5-5.0 [facility] Comment on above: Performed By: #### T YPEC #### [facility] (DEFAULT) [address] [place] [address] Sodium [Moles/Vol] 141 mmol/L Normal 135-145 [facility] Comment on above: Performed By: #### T YPEC #### [facility] (DEFAULT) [address] [place] [address] Urea nitrogen [Mass/Vol] 56 mg/dL High 7-25 [facility] Comment on above: Performed By: #### T YPEC #### [facility] (DEFAULT) [address] [address] Urea nitrogen/Creatinine [Mass ratio] 41 mg/mg Normal [facility] Comment on above: Performed By: #### T YPEC #### [facility] (DEFAULT) [address] [place] [address] GLUCOSE POCon 08-12-2024 Glucose [Mass/Vol] 231 mg/dL High 70 - 179 mg/dL [facility] Interpretation and review of laboratory results Abnormal [facility] POC Sample [facility] Glucose [Mass/Vol] 208 mg/dL High 70 - 179 mg/dL [facility] Interpretation and review of laboratory results Abnormal [facility] POC Sample [facility] Glucose [Mass/Vol] 160 mg/dL 70 - 179 mg/dL [facility] POC Sample Type CAPBL [facility] Glucose [Mass/Vol] 107 mg/dL 70 - 179 mg/dL [facility] POC Sample Type CAPBL [facility] MAGNESIUMon 08-12-2024 Interpretation and review of laboratory results Normal [facility] Magnesium [Mass/Vol] 2.2 mg/dL 1.6 - 2 .6 mg/dL [facility] Magnesium [Mass/Vol] 2.2 mg/dL Normal 1.6-2.6 [facility] Comment on above: Performed By: #### T YPEC #### [facility] (DEFAULT) [address] [place] [address] No Panel Informationon 08-12 [facility] SURG PATH REQUESTOrdered By: Renae Glez on 08-12-2024 Case Report [facility] Clinical History [id number] NVx llgNlKENdyGIgG3IcjvauRM nsCE6lKX5lpSlsjHZbcVSzX UMlMzMzx1yje940vZLmy6fy BGFZsiwuhJy8vAhzU63xj0K 8AnhdB4xpJBHpCByvQGGrFV afuQEcPIb2SPFmuCKlvyFeR bInUWCpcWNkaMN0IQDtMO1s pgptPWxhSMctWGXijxQ7TUN uqFBeP0NeIYYiCL9hjdjiXV E7ESqvXMUeLGU0PcNlVQOyk 3Klmii0BxDqxJs7h6zjFXXy MYLqbCkzp8byHKH5NGVoeAW kL9qamK5nNSNqUJ7spetrn1 fmZAhxEOprKRLouGW8vpV3D JWqfYWrQ0WsfP9zKPOpLIXw cdIphZubmJ7fKnLjIOihEtK qKx6LMItTOxRlKVPge6TsYF IwZCNBoWNyhc7coZM2MTTAt 08rKcPiSTWxfONoeLEFcAQ6 v1I3IuYnCm3qvIBhjABkuXU ctBM6h8L0HZEtj1XvORFsPo xwYXJ9 [facility] For Immediate Release to Patient's MyChart? Yes Yes [facility] Gross Description b8krlEKhGTKtd6hoGDMj bGF uZzEwMzNcZnRuYmpcdWMxIH tccnRmMVxlcGljMTExMDVcY D6qrWwjhEp5sCanWYQfzkB0 aTHjOBlsp0aaFAJ8r5riypj mQFMeOXsqBe5buFKdkWvdYa EwKQJnSMj4kG21NNDdfW2ib CXiSAqvyuNgPCElD5CcBK1b YKfybPHkSBS6uBvfZWPilgk hGiG1OIdlHNVhfoicFDj6OQ ajGTDclJL0VQDurOUxQ7MhY CGqDK7qcsk9KED1PJepVAIr IcC7VIKuxUPlBNXvpPjlDMw wx870VUY1IcCtQYRhibQdaD xfuQ1hVxQuMWHGyLGez7AqQ 5dtIN4skKYtfbVeVBv4IBOi mX6mm58wUADiq6Gcctk4EEk sOoOfCJYfN07cwFOhnwPoTV dpdGggdGhlIHBhdGllbnQnc rWzJX6mFVLwZVNbX6Lld9Lk q67zlaUcNuDeIuVvtQXdBRV glehqYaRcKMlqBbVqUmf0BY IgVGhlIHNwZWNpbWVuIGlzI QDbn2lwdvE3QVCpDjepg3Iz yWDfCFEyzeOniFGiNP8pDTU tmxNcp2RdMK8iMIUkibOzSl DyS05yzwCuVH9pRYNdxg5dj W1cNOHrSnNkjGjtj4HcIDDt uj0nOXQmArT2hDS5wpLrDuO kC49jaZ1jY0QiRJXuj5CdQF zcBG0xrW3oKiMcDORaRGKfu EWuIHZruyCAGFFtUQIiWN7r cJb4ISfkEaaEFNzbWkSkQYD 3WFHzvd65ERT4HnKlc8E4MY CyLpXkZBOtPI5dyCxnSMCzL V0uNQYxQ8xbaO1mqnq1UpNi FHLlLlL0GWZbzxM0Wrp8RIQ gNXauf5dkl7UrQNXtOFn5kN xdCmTuUBJkq7bnjtTlOrSpB WEmQHIfDENrzSCvB441u4ph p1wizsYerCI9OZOvMZI0LKf jvgQnjgI5HSdzkPDuZsV0RI gjkbSjLQodfzRkyxSpQwy3A LZmH754SAJ2fHwcd6tpDWV9 AWPjRWIoRbIvAc7yqSQrS37 7ALZmOANQCIZezEc4FXAvai AnfxOrvJISj818A866f7jlN WJfnaQhdXaMywikk4vuT074 XHBhcGVydzEyMjQwXHBhcGV dqWV8SFQfQT6uuukuGNjwSL ukSJLttsA3THIxtAUaJ9RhF BSjMA0uztlzMEV7UHhcLWOq VQS6CcTmNERxf8Tsspa3GlP ztc9koz73VYL4c8RzyMepEZ J8YDI7LaOxQy6xrVTtYQVcO U3sAlBxqTBrILOlzh42kLwc VAtnygPhfZ2iGzCkPOXnoWV yMNAiFZ3wkPDeNOKxdF1ywr xjXHBnYnJkcmhlYWRccGdic yHtFi6kmBkxIEC2ZDmlO5nf mC1iWfI7SDkkV3dvfU2eGVl 4LOrnrZV7OAGhgD8iLR2srq qdn3oeCRagJHxjICXzxcD3i cY3ADKujTVbX6YlkC1wFWJd DA8jijpqg4qmTYU5YDplCOF nECR8OjYtXOUme6Stlfl2Ye Gku0GcxDPjHEziC41lm499E RJbjgSuY6kvsWSpkdoonMUh utfaVKvgazE3OTZnDZPmXXf uXGYxXGZzMjJcbGFuZzEwMz NcaGljaFxmMVxkYmNoXGYxX KfhC4vfAjWfEpQlEuTPkv7u o1BsWFMjooD7lJodCPWcc9P fq0XfEmWBSGJtD4BeJM2ueZ CpRJEmpk98 [facility] Microscopic Description g3nexVJqAKOiuNSg ZjIyMDA uBRSum1zkSMOltUHjJjFgJd NcZnRuYmpcdWMxXGRlZmYwe 6sfa243zKKhc2uqOVNvQvO3 yOOrWFHvhFDeN344BUXcLLy ki4yls5ToOFAntIDpl8B8GI MAccejjRr4bQysO65it3G2J vqdZ5dlRBWeIXItF8MfWM3t LWHqTlp9YNB0SDZ9LGMqSHH qU4JcAJ9zYSAvxWVuFJt4o6 nuqFryDSZlDIT7q2niZKdzj tQvGH6pch4pkCl9b2speiCs OETyGANthKCGMTVoX5TtzUe wNj8bxGb0fIddZwcfXSX0Ta n2NO5zov39gys5jEcqRNZjn nbzZvI8HBvjRDLpnftgWAp6 FNzsJQGlvXA1MLUxgHFgW3O pONKuFY8djci1IMT0FPvsOO HiDcK1HCOsuCVdVXIdmPlxR Enbk519XZC5SrSkPC9fC0Xx z5Y3bW1vqHVePTJrfHKwDyP hIGMqhs6vzMPeBGvjc6XgDP H5jtQ5tTTmxUCgQONvGP18K fjqe1YwDrwkCDP1GCNqpaKs b3Xjj5weSkQlybGcX1roV4P yZHJoZWFkXHBnYnJkcmZvb3 Suz0MxlZDheFq0c7hpNLMkR TBqnTkuh4ysLKP2XSCnG5G1 gFPhz0nnZFxgQRWgoDU7saK 9WQVwyARsT9HczV4hBFZvNL 9npdx7i1jpSCX3HGahWATzH mF5ixB7VAPmlPTsNEZfkRjq BWbtx026WVT1LsGkNTSiu2W nO9CvpFqmO33xpTlkD01hUV FndFqzqC2gjOxsfE4tHyGvG nMyNFxxbFxwbGFpblxmMVxm puXnCJunghijDMJsQEijK0i bKiPsNSZevRpuUCztv6HfRQ ZpYURrNpAqKUZxbTCth9Lhp 7QiHyWjfWJfvX4jrNyyqaI1 DKYsrNMrLy7xwJYgUnGnpXX yfQ== [facility] Pathologic Diagnosis j8lszXWhIDNciZIxBLN wNVx ynxStHOIanCPpY6GbgiweMF ykYT8tJO6dhIntfTRppYSlJ NBdCaSsa2vnz309wMDgi4hk MEUWjmdlrOb7d0gkABWCwC2 fx3l7pE27WRRswD4fbVPlFD ajhpWyANjfraQywfHvLgv1Y MT9iEpvRrkgyNY5xUMznNZ1 FSfhk2FgiAmviCwlTRQlEAI vSAJ4V6oaaXF2sCEihVdobC VpBB2wo0gctGG6erPjBNF6r TjetZC8tHgchpknk4pieLS7 lZQ5SIylhIZ5WWokXqKsZ3l wSWRgaT3rF37eW9dxOKSqwK nxYRqgPEFkpSY7HBR7YYLsj 1xsZXZlbHRleHRcJzAxXCdi Ilu2z1ixDHFehS20qNBrltC 7fVxmMVxmczIwXGxpMzYwXG ZpMTgwfXtcbGlzdGxldmVsX ZvlsqVspmYdPoShaYN3XOrc OkWfIoJeyVN0KXqnMjIibWB 3JMgqeQYwxFG2CBhgvVF6HA q8PKz7YLwuGDyvVdg4xRurb UD0UXswhD9cWZSyF83oJbSc MuOfAI75IMyoi4JcMJFmaCq cMNMlfW5wKeKdWHsntxGegq ZjbjIzXGxldmVsamMwXGxld nJvf6PbhmIlsPL0CGqicqQj sIF1bJkjQQZaO9L4M325OTq qoiEsjdPmInLnzgs2RDQuNT TnMoZ0n4jkhBY5jII3KAwhw XW4DEajHaZkL6czNXFrvK5g C81oY5psCOTogAvtDPyhNWP nnKX8FXF6UFEwm8igXQOagU IfaOGkAnLzZYpjEao9b5quW UVgsA38qMBkeeF9uQgrVEfd czIwfXtcbGlzdGxldmVsXGx mjwJplsAgQbYeeNI6LGdpOi UkPxPuxWB6ROkxLvMenDC9B NmmwLFxbJI8PWarrNG6IAy4 KMq8KVilGMfkIwd2nHrsvRZ 7SXawhF0jPQTmA25pGwBzOv PkSP01FRurg6DkWTUdxZnqH AYykB8cYiYsUXvndeHkthRc bjIzXGxldmVsamMwXGxldmV qz6IsxhAhqZV8ZCcyteMueJ H1yKxqFSThS4G6E215OLiwa oSojwDwYwBfcaa9KVUjSXDx MqE4u9yoqEH7gZX4KAslzIA 2OWiaFfFxF9oqPFImtM0vV7 6jI6vjOITkkMmaXSptSKZsw EU2JQY1SVPbs7aoGHUaqFHm fQUsBqOmDUkaRox2b7ipUUR veV24hFZzwxY0vNsuDQvgtc IwfXtcbGlzdGxldmVsXGxld sHlspTnAkNmpLV4NFtqStXl IzSeyDU6NIaxZeXiuNL3FCe hnYOouXB4NDmvaWM8LWq0VI j2BBkwVKeuXzs4oGcdbCN9V NuvqU1qWTVcF36uYvRoDfBh IB09JYhso2OjTSWgaEfbLIK rlE2yCjSdQQqbquTsqlPmsb IzXGxldmVsamMwXGxldmVsc 4KmszWtaSM6YIuhvbFvdOT6 cYvnSBPeK8H4Y133RUhdscB jbqCjGlWeetc7FGVaITIaGl N3mK82PGvrbHntlI07JEVqa CHkqPHiiNP5ETkgkZciaB90 ZDPgdXVlUImts1NwFFDrOhE 8YtYdXPDqgLzcgP86KKMbvH ElU728orEnGJvnXH92SPOua GVydzEyMjQwXHBhcGVyaDE1 GVUeTN1nxuxsBHtbIQdjDCH deqU0PZMpuCIlG6DlDIPmTL 4aaudtAWI8PWsqDBIxSKQ0Y aQqKJPpa5Gpskc3LsJnlHSe GOtdbVZlwcudKJHdByXyV0H hQEAdHGX3l46wA8bwHEKlx1 BzeTpccGFyXGxpMzYwXGZpM OghIGjrmiT5UDjzyzZrlGq3 cBGrqYfrpV7xFnxkvcXzKFW hCYITm5UilYQrql6phH8xHM NgyoGLjuJTGLbxU53sBHB9L BYwsBkwy5SiVLspGF19nGGj ZWRccGFyfQ== [facility] Professional Interpretation Performed at: g4oonDVdZZLryZIzNmEbKWR jLHKxa5uaZFKjzPGdNyVaDx NcZnRuYmpcdWMxXGRlZmYwe 5yag619bRYrr1yxVBFyHcV1 eHYtPRMmrTOyZ529HUYaGDm nf8qap8HwMZOzbHInu9Q5GO ARbgcgfSr7hFrwO60qc3E8A tnjL3wkMDSuWSQeO7IuZJ5q ZOCtRle7WAY5YNX4SNYkCBU pA7XwZX6hUGTtcXBgTVr5a9 kqbJdiZYMoTNW4w2bfDCqnc yOeQT0cii5pdYw3j7iiqzPm VNSfCFCrwCZIRKUlD0FvaBf qIp1qbWh6bYooDuupPWY9Wa i7YQ3gdd34nfz0uMkzVKSwq zkeEsE6SSlnBDAxvcmtQRp8 HZenUIJzyXD7BDJdiUSxW9W cPAAzGB5lsnn7WGU1MWjmKF EqMcL9DYJabZChJJOhbMyhS Zvsc123QSQ8OcHgFD7jD6Ft f8S2nU9nvBMlWGDngAAqAkS mKYYajk6ywQHuLVrfn6PtRN J2wjP0aPGqwFJaISGaHG78B urcb1SuRoxgPRN8FJFbbiNm w5Fkh4ykLtYdrgQnF8inF9Q yZHJoZWFkXHBnYnJkcmZvb3 Cgw9UbiTOzsZm6c0ndQGIdD HKjnRdms9xjTLA0FMLiU6K7 wGWch6ovWLqmRCTeoAE7moT 6ZFFupVNtA6ShiM6hBJTtMZ 7qkbw6i7pyXBS2NHxjLUMuH vK3koE0YDYpaIAfOMSkoUmq YGouv725HQC8CgTqYTAha2T zY4IvlXulL26enCluR33kQN SicUfdwS7smGzkwN7eFoQzU nMyNFxwYXJkXHBsYWluXGYx XGZzMjJcbGFuZzEwMzNcaGl jaFxmMVxkYmNoXGYxXGxvY2 ypNoPzIrFwMnMUL5DfY7BWG oTUTB5DSPeBTKihN8EONPRP YMCJAB7LG5SZOWnFBz1LFPC JEuesnIStBKCcCXDTWVA5OU LrjLgvERViEJTynjTPu6o9t [id number] [facility] CBC,PLATELETSon 08-11-2024 Erythrocyte distribution width (RBC) [Ratio] 13.7 % 10.8 - 14.9 % [facility] Hematocrit (Bld) [Volume fraction] 43.2 % 34.9 - 44.3 % [facility] Hemoglobin (Bld) [Mass/Vol] 14 g/dL 11.4 - 15.2 g/dL [facility] Interpretation and review of laboratory results Abnormal [facility] MCH (RBC) [Entitic mass] 29.9 pg 25.9 - 33.9 pg [facility] MCHC (RBC) [Mass/Vol] 32.4 g/dL 31.4 - 35.9 g/dL [facility] MCV (RBC) [Entitic vol] 92.1 fL 79.6 - 97.7 fL [facility] Platelet mean volume (Bld) [Entitic vol] 11.5 fL 8.5 - 12.2 fL [facility] Platelets (Bld) [#/Vol] 240 10*3/uL 150 - 393 K/uL [facility] RBC (Bld) [#/Vol] 4.69 10*6/uL [facility] WBC (Bld) [#/Vol] 11.76 10*3/uL High 3.99 - 11.19 K/uL [facility] Hematocrit (Bld) [Volume fraction] 43.2 % Normal 34.9-44.3 [facility] Comment on above: Performed By: #### T YPEC #### [facility] (DEFAULT) [address] [place] [address] Hemoglobin (Bld) [Mass/Vol] 14.0 g/dL Normal 11.4-15.2 [facility] Comment on above: Performed By: #### T YPEC #### [facility] (DEFAULT) [address] [place] [address] MCV (RBC) [Entitic vol] 92.1 fL Normal 79.6-97.7 [facility] Comment on above: Performed By: #### T YPEC #### [facility] (DEFAULT) [address] [address] Mean Cell Hgb 29.9 pg Normal 25.9-33.9 [facility] Comment on above: Performed By: #### T YPEC #### [facility] (DEFAULT) [address] [address] Mean Cell Hgb Conc 32.4 g/dL Normal 31.4-35.9 [facility] Comment on above: Performed By: #### T YPEC #### [facility] (DEFAULT) [address] [address] Platelet mean volume (Bld) [Entitic vol] 11.5 fL Normal 8.5-12.2 [facility] Comment on above: Performed By: #### T YPEC #### [facility] (DEFAULT) [address] [address] Platelets (Bld) [#/Vol] 240 10*3/uL Normal 150-393 [facility] Comment on above: Performed By: #### T YPEC #### [facility] (DEFAULT) [address] [address] RBC (Bld) [#/Vol] 4.69 10*6/uL Normal 3.91-5.04 [facility] Comment on above: Performed By: #### T YPEC #### [facility] (DEFAULT) [address] [address] RBC Distribution 13.7 % Normal 10.8-14.9 [facility] Comment on above: Performed By: #### T YPEC #### [facility] (DEFAULT) [address] [address] WBC (Bld) [#/Vol] 11.76 10*3/uL High 3.99-11.19 [facility] Comment on above: Performed By: #### T YPEC #### [facility] (DEFAULT) [address] [place] [address] CHEM 7 (LYTES,BUN,CREA,GLUC) on 08-11-2024 Anion gap [Moles/Vol] 14 mmol/L 7 - 17 mmol/L [facility] Chloride [Moles/Vol] 103 mmol/L 98 - 10 8 mmol/L [facility] CO2 [Moles/Vol] 26 mmol/L 21 - 31 mmol/L [facility] Creatinine [Mass/Vol] 1.32 mg/dL High 0.50 - 1.20 mg/dL [facility] eGFR, CKD-EPI, Female 41 Low - PINF [facility] Glucose [Mass/Vol] 127 mg/dL 70 - 179 mg/dL [facility] Interpretation and review of laboratory results Abnormal [facility] Osmolality Calc [Osmolality] 306 High [facility] Potassium [Moles/Vol] 4.6 mmol/L 3.5 - 5.0 mmol/L [facility] Sodium [Moles/Vol] 138 mmol/L 135 - 145 mmol/L [facility] Urea nitrogen [Mass/Vol] 53 mg/dL High 7 - 25 mg/dL [facility] Urea nitrogen/Creatinine [Mass ratio] 40 mg/mg [facility] Anion gap [Moles/Vol] 14 mmol/L Normal 7-17 [facility] Comment on above: Performed By: #### H [facility] #### [facility] (DEFAULT) [address] [place] [address] Chloride [Moles/Vol] 103 mmol/L Normal 98-108 [facility] Comment on above: Performed By: #### H EMOGC #### [facility] (DEFAULT) [address] [place] [address] CO2 [Moles/Vol] 26 mmol/L Normal 21-31 [facility] Comment on above: Performed By: #### H EMO #### [facility] (DEFAULT) [address] [place] [address] Creatinine [Mass/Vol] 1.32 mg/dL High 0.50-1.20 [facility] Comment on above: Performed By: #### H [facility] #### [facility] (DEFAULT) [address] [place] [address] GFR/1.73 sq M.predicted among non-blacks MDRD (S/P/Bld) [Vol rate/Area] 41 mL/min/{1.73_m2} Low >=60 [facility] Comment on above: Result Comment: Repo rted eGFR is based on the CKD-EPI 2020 equation using creatinine, age, and sex. Performed By: #### H [facility] #### [facility] (DEFAULT) [address] [address] Glucose [Mass/Vol] 127 mg/dL Normal Nonfastin -179 mg/dL; Fastin-99 [facility] Comment on above: Performed By: #### H [facility] #### [facility] (DEFAULT) [address] [place] [address] Osmolality [Osmolality] 306 mosm/kg High 278-305 [facility] Comment on above: Performed By: #### H EMO #### [facility] (DEFAULT) [address] [place] [address] Potassium [Moles/Vol] 4.6 mmol/L Normal 3.5-5.0 [facility] Comment on above: Performed By: #### H EMO #### [facility] (DEFAULT) [address] [place] [address] Sodium [Moles/Vol] 138 mmol/L Normal 135-145 [facility] Comment on above: Performed By: #### H EMOGC #### [facility] (DEFAULT) [address] [place] [address] Urea nitrogen [Mass/Vol] 53 mg/dL High 7-25 [facility] Comment on above: Performed By: #### H EMOGC #### [facility] (DEFAULT) [address] [place] [address] Urea nitrogen/Creatinine [Mass ratio] 40 mg/mg Normal [facility] Comment on above: Performed By: #### H [facility] #### [facility] (DEFAULT) [address] [place] [address] GLUCOSE POCon 08-11-2024 Glucose [Mass/Vol] 213 mg/dL High 70 - 179 mg/dL [facility] Interpretation and review of laboratory results Abnormal [facility] POC Sample Type CAPBL [facility] Glucose [Mass/Vol] 255 mg/dL High 70 - 179 mg/dL [facility] Interpretation and review of laboratory results Abnormal [facility] POC Sample Type CAPBL [facility] Glucose [Mass/Vol] 190 mg/dL High 70 - 179 mg/dL [facility] Interpretation and review of laboratory results Abnormal [facility] POC Sample Type CAPBL [facility] Glucose [Mass/Vol] 205 mg/dL High 70 - 179 mg/dL [facility] Interpretation and review of laboratory results Abnormal [facility] POC Sample Type CAPBL [facility] MAGNESIUMon 08-11-2024 Interpretation and review of laboratory results Normal [facility] Magnesium [Mass/Vol] 1.9 mg/dL 1.6 - 2 .6 mg/dL [facility] Magnesium [Mass/Vol] 1.9 mg/dL Normal 1.6-2.6 [facility] Comment on above: Performed By: #### M WENDY [facility] #### [facility] (DEFAULT) [address] [place] [address] No Panel Informationon 08-11 [facility] BLOOD CULTUREon 08-10-2024 Bacteria identified Cx Nom (Unsp spec) NO GROWTH DAY 5 OF 5 Normal [facility] Comment on above: Order Comment: 2 Bot tles (1 Set - consists of 1 Aerobic bottle and 1 Anaerobic bottle) -1st Peripheral DrawFor vacutainer method draw: Fill aerobic bottle first, then anaerobicResults may be compromised due to LOW VOLUME of the BACT\\ALERT bottle UNDER 8mLs, which can be associated with decreased sensitivity. The optimal blood volume is 8-10mLs per aerobic/anaerobic blood culture bottle. Performed By: #### T YPEC #### [facility] (DEFAULT) [address] [address] Bacteria identified Cx Nom (Unsp spec) NO GROWTH DAY 5 OF 5 Normal [facility] Comment on above: Order Comment: 2 Bot tles (1 Set - consists of 1 Aerobic bottle and 1 Anaerobic bottle) - 1st Peripheral Draw For vacutainer method draw: Fill aerobic bottle first, then anaerobic Results may be compromised due to HIGH VOLUME of the BACT\\ALERT bottle EXCEEDING 10mLs, which can be associated with increased contamination. The optimal blood volume is 8-10mLs per aerobic/anaerobic blood culture bottle. Performed By: #### B LDCULT #### [facility] (DEFAULT) [address] [address] CBC,PLATELETSon 08-10-2024 Erythrocyte distribution width (RBC) [Ratio] 13.3 % 10.8 - 14.9 % [facility] Hematocrit (Bld) [Volume fraction] 45.1 % High 34.9 - 44.3 % [facility] Hemoglobin (Bld) [Mass/Vol] 14.1 g/dL 11.4 - 15.2 g/dL [facility] Interpretation and review of laboratory results Abnormal [facility] MCH (RBC) [Entitic mass] 29.1 pg 25.9 - 33.9 pg [facility] MCHC (RBC) [Mass/Vol] 31.3 g/dL Low 31.4 - 35.9 g/dL [facility] MCV (RBC) [Entitic vol] 93 fL 79.6 - 97.7 fL [facility] Platelet mean volume (Bld) [Entitic vol] 11.4 fL 8.5 - 12.2 fL [facility] Platelets (Bld) [#/Vol] 216 10*3/uL 150 - 393 K/uL [facility] RBC (Bld) [#/Vol] 4.85 10*6/uL [facility] WBC (Bld) [#/Vol] 13.78 10*3/uL High 3.99 - 11.19 K/uL [facility] Hematocrit (Bld) [Volume fraction] 45.1 % High 34.9-44.3 [facility] Comment on above: Performed By: #### H [facility] #### [facility] (DEFAULT) [address] [address] Hemoglobin (Bld) [Mass/Vol] 14.1 g/dL Normal 11.4-15.2 [facility] Comment on above: Performed By: #### H [facility] #### [facility] (DEFAULT) [address] [address] MCV (RBC) [Entitic vol] 93.0 fL Normal 79.6-97.7 [facility] Comment on above: Performed By: #### H EMO #### [facility] (DEFAULT) [address] [address] Mean Cell Hgb 29.1 pg Normal 25.9-33.9 [facility] Comment on above: Performed By: #### H EMO #### [facility] (DEFAULT) [address] [address] Mean Cell Hgb Conc 31.3 g/dL Low 31.4-35.9 [facility] Comment on above: Performed By: #### H EMO #### [facility] (DEFAULT) [address] [address] Platelet mean volume (Bld) [Entitic vol] 11.4 fL Normal 8.5-12.2 [facility] Comment on above: Performed By: #### H [facility] #### [facility] (DEFAULT) [address] [place] [address] Platelets (Bld) [#/Vol] 216 10*3/uL Normal 150-393 [facility] Comment on above: Performed By: #### H EMO #### [facility] (DEFAULT) [address] [place] [address] RBC (Bld) [#/Vol] 4.85 10*6/uL Normal 3.91-5.04 [facility] Comment on above: Performed By: #### H [facility] #### [facility] (DEFAULT) [address] [place] [address] RBC Distribution 13.3 % Normal 10.8-14.9 [facility] Comment on above: Performed By: #### H [facility] #### [facility] (DEFAULT) [address] [place] [address] WBC (Bld) [#/Vol] 13.78 10*3/uL High 3.99-11.19 [facility] Comment on above: Performed By: #### H [facility] #### [facility] (DEFAULT) [address] [place] [address] CHEM 7 (LYTES,BUN,CREA,GLUC) on 08-10-2024 Anion gap [Moles/Vol] 16 mmol/L 7 - 17 mmol/L [facility] Chloride [Moles/Vol] 103 mmol/L 98 - 10 8 mmol/L [facility] CO2 [Moles/Vol] 24 mmol/L 21 - 31 mmol/L [facility] Creatinine [Mass/Vol] 1.36 mg/dL High 0.50 - 1.20 mg/dL [facility] eGFR, CKD-EPI, Female 40 Low - PINF [facility] Glucose [Mass/Vol] 186 mg/dL High 70 - 179 mg/dL [facility] Interpretation and review of laboratory results Abnormal [facility] Osmolality Calc [Osmolality] 308 High [facility] Potassium [Moles/Vol] 4.9 mmol/L 3.5 - 5.0 mmol/L [facility] Sodium [Moles/Vol] 138 mmol/L 135 - 145 mmol/L [facility] Urea nitrogen [Mass/Vol] 47 mg/dL High 7 - 25 mg/dL [facility] Urea nitrogen/Creatinine [Mass ratio] 35 mg/mg [facility] Anion gap [Moles/Vol] 16 mmol/L Normal 7-17 [facility] Comment on above: Performed By: #### Jaiden NGUYEN CHM7 ####[facility] (DEFAULT)[address] [place] [address] Chloride [Moles/Vol] 103 mmol/L Normal 98-108 [facility] Comment on above: Performed By: #### Jaiden NGUYEN CHM7 ####[facility] (DEFAULT)[address] [place] [address] CO2 [Moles/Vol] 24 mmol/L Normal 21-31 [facility] Comment on above: Performed By: #### Jaiden NGUYEN CHM7 ####[facility] (DEFAULT)[address] [place] [address] Creatinine [Mass/Vol] 1.36 mg/dL High 0.50-1.20 [facility] Comment on above: Performed By: #### Jaiden NGUYEN CHM7 ####[facility] (DEFAULT)[address] [place] [address] GFR/1.73 sq M.predicted among non-blacks MDRD (S/P/Bld) [Vol rate/Area] 40 mL/min/{1.73_m2} Low >=60 [facility] Comment on above: Result Comment: Repo rted eGFR is based on the CKD-EPI 2020 equation using creatinine, age, and sex. Performed By: #### Jaiden NGUYEN CHM7 ####[facility] (DEFAULT)[address] [place] [address], [place] [address] Glucose [Mass/Vol] 186 mg/dL High Nonfastin -179 mg/dL; Fastin-99 [facility] Comment on above: Performed By: #### Jaiden NGUYEN CHJaiden7 ####[facility] (DEFAULT)[address] [place] [address] Osmolality [Osmolality] 308 mosm/kg High 278-305 [facility] Comment on above: Performed By: #### Jaiedn NGUYEN CHJaiden7 ####[facility] (DEFAULT)[address] [place] [address] Potassium [Moles/Vol] 4.9 mmol/L Normal 3.5-5.0 [facility] Comment on above: Performed By: #### Jaiden NGUYEN CHM7 ####[facility] (DEFAULT)[address] [facility] [place] [address] Sodium [Moles/Vol] 138 mmol/L Normal 135-145 [facility] Comment on above: Performed By: #### Jaiden NGUYEN CHM7 ####[facility] (DEFAULT)[address] [facility] [place] [address] Urea nitrogen [Mass/Vol] 47 mg/dL High 7-25 [facility] Comment on above: Performed By: #### Jaiden NGUYEN CHM7 ####[facility] (DEFAULT)[address] [facility] [place] [address] Urea nitrogen/Creatinine [Mass ratio] 35 mg/mg Normal [facility] Comment on above: Performed By: #### Jaiden NGUYEN CHM7 ####[facility] (DEFAULT)[address] [facility] [place] [place] [address] GLUCOSE POCon 08-10-2024 Glucose [Mass/Vol] 144 mg/dL 70 - 179 mg/dL [facility] POC Sample Type CAPBL [facility] Glucose [Mass/Vol] 177 mg/dL 70 - 179 mg/dL [facility] POC Sample Type CAPBL [facility] Glucose [Mass/Vol] 180 mg/dL High 70 - 179 mg/dL [facility] Interpretation and review of laboratory results Abnormal [facility] POC Sample Type CAPBL [facility] Glucose [Mass/Vol] 193 mg/dL High 70 - 179 mg/dL [facility] Interpretation and review of laboratory results Abnormal [facility] POC Sample Type CAPBL [facility] Glucose [Mass/Vol] 200 mg/dL High 70 - 179 mg/dL [facility] Interpretation and review of laboratory results Abnormal [facility] POC Sample Type CAPBL [facility] Glucose [Mass/Vol] 198 mg/dL High 70 - 179 mg/dL [facility] Interpretation and review of laboratory results Abnormal [facility] POC Sample Type CAPBL [facility] MAGNESIUMon 08-10-2024 Interpretation and review of laboratory results Normal [facility] Magnesium [Mass/Vol] 1.8 mg/dL 1.6 - 2 .6 mg/dL [facility] Magnesium [Mass/Vol] 1.8 mg/dL Normal 1.6-2.6 [facility] Comment on above: Performed By: #### M [facility] ####[facility] (DEFAULT)[address] [place] [address] No Panel Informationon 08-10 [facility] URINE CULTUREOrdered By: Franklin Carcamo on 08-10-2024 Bacteria identified Cx Nom (Unsp spec) Growth [facility] Bacteria identified Cx Nom (Unsp spec) KLEBSIELLA PNEUMONIAE Abnormal [facility] Interpretation and review of laboratory results Abnormal [facility] CBC,PLATELETSon 08-09-2024 Erythrocyte distribution width (RBC) [Ratio] 13.5 % 10.8 - 14.9 % [facility] Hematocrit (Bld) [Volume fraction] 44.4 % High 34.9 - 44.3 % [facility] Hemoglobin (Bld) [Mass/Vol] 14.1 g/dL 11.4 - 15.2 g/dL [facility] Interpretation and review of laboratory results Abnormal [facility] MCH (RBC) [Entitic mass] 29.4 pg 25.9 - 33.9 pg [facility] MCHC (RBC) [Mass/Vol] 31.8 g/dL 31.4 - 35.9 g/dL [facility] MCV (RBC) [Entitic vol] 92.7 fL 79.6 - 97.7 fL [facility] Platelet mean volume (Bld) [Entitic vol] 11.5 fL 8.5 - 12.2 fL [facility] Platelets (Bld) [#/Vol] 226 10*3/uL 150 - 393 K/uL [facility] RBC (Bld) [#/Vol] 4.79 10*6/uL [facility] WBC (Bld) [#/Vol] 12.37 10*3/uL High 3.99 - 11.19 K/uL [facility] Hematocrit (Bld) [Volume fraction] 44.4 % High 34.9-44.3 [facility] Comment on above: Performed By: #### [facility] #### [facility] (DEFAULT) [address] [place] [address] Hemoglobin (Bld) [Mass/Vol] 14.1 g/dL Normal 11.4-15.2 [facility] Comment on above: Performed By: #### [facility] #### [facility] (DEFAULT) [address] [place] [address] MCV (RBC) [Entitic vol] 92.7 fL Normal 79.6-97.7 [facility] Comment on above: Performed By: #### H EMOGC #### [facility] (DEFAULT) [address] [address] Mean Cell Hgb 29.4 pg Normal 25.9-33.9 [facility] Comment on above: Performed By: #### H EMOGC #### [facility] (DEFAULT) [address] [address] Mean Cell Hgb Conc 31.8 g/dL Normal 31.4-35.9 [facility] Comment on above: Performed By: #### H EMOGC #### [facility] (DEFAULT) [address] [address] Platelet mean volume (Bld) [Entitic vol] 11.5 fL Normal 8.5-12.2 [facility] Comment on above: Performed By: #### H EMOGC #### [facility] (DEFAULT) [address] [address] Platelets (Bld) [#/Vol] 226 10*3/uL Normal 150-393 [facility] Comment on above: Performed By: #### H EMOGC #### [facility] (DEFAULT) [address] [address] RBC (Bld) [#/Vol] 4.79 10*6/uL Normal 3.91-5.04 [facility] Comment on above: Performed By: #### H EMOGC #### [facility] (DEFAULT) [address] [address] RBC Distribution 13.5 % Normal 10.8-14.9 [facility] Comment on above: Performed By: #### H EMOGC #### [facility] (DEFAULT) [address] [address] WBC (Bld) [#/Vol] 12.37 10*3/uL High 3.99-11.19 [facility] Comment on above: Performed By: #### H EMOGC #### [facility] (DEFAULT) [address] [place] [address] CHEM 7 (LYTES,BUN,CREA,GLUC) on 08-09-2024 Anion gap [Moles/Vol] 14 mmol/L 7 - 17 mmol/L [facility] Chloride [Moles/Vol] 103 mmol/L 98 - 10 8 mmol/L [facility] CO2 [Moles/Vol] 26 mmol/L 21 - 31 mmol/L [facility] Creatinine [Mass/Vol] 1.35 mg/dL High 0.50 - 1.20 mg/dL [facility] eGFR, CKD-EPI, Female 40 Low - PINF [facility] Glucose [Mass/Vol] 182 mg/dL High 70 - 179 mg/dL [facility] Interpretation and review of laboratory results Abnormal [facility] Osmolality Calc [Osmolality] 305 [facility] Potassium [Moles/Vol] 4.9 mmol/L 3.5 - 5.0 mmol/L [facility] Sodium [Moles/Vol] 138 mmol/L 135 - 145 mmol/L [facility] Urea nitrogen [Mass/Vol] 38 mg/dL High 7 - 25 mg/dL [facility] Urea nitrogen/Creatinine [Mass ratio] 28 mg/mg [facility] Anion gap [Moles/Vol] 14 mmol/L Normal 7-17 [facility] Comment on above: Performed By: #### H [facility] #### [facility] (DEFAULT) [address] [place] [address] Chloride [Moles/Vol] 103 mmol/L Normal 98-108 [facility] Comment on above: Performed By: #### H EMOGC #### [facility] (DEFAULT) [address] [place] [address] CO2 [Moles/Vol] 26 mmol/L Normal 21-31 [facility] Comment on above: Performed By: #### H EMO #### [facility] (DEFAULT) [address] [place] [address] Creatinine [Mass/Vol] 1.35 mg/dL High 0.50-1.20 [facility] Comment on above: Performed By: #### H [facility] #### [facility] (DEFAULT) [address] [place] [address] GFR/1.73 sq M.predicted among non-blacks MDRD (S/P/Bld) [Vol rate/Area] 40 mL/min/{1.73_m2} Low >=60 [facility] Comment on above: Result Comment: Repo rted eGFR is based on the CKD-EPI 2020 equation using creatinine, age, and sex. Performed By: #### [facility] #### [facility] (DEFAULT) [address] [address] Glucose [Mass/Vol] 182 mg/dL High Nonfastin -179 mg/dL; Fastin-99 [facility] Comment on above: Performed By: #### H [facility] #### [facility] (DEFAULT) [address] [place] [address] Osmolality [Osmolality] 305 mosm/kg Normal 278-305 [facility] Comment on above: Performed By: #### H [facility] #### [facility] (DEFAULT) [address] [place] [address] Potassium [Moles/Vol] 4.9 mmol/L Normal 3.5-5.0 [facility] Comment on above: Performed By: #### H [facility] #### [facility] (DEFAULT) [address] [address] Sodium [Moles/Vol] 138 mmol/L Normal 135-145 [facility] Comment on above: Performed By: #### H EMOGC #### [facility] (DEFAULT) [address] [address] Urea nitrogen [Mass/Vol] 38 mg/dL High 7-25 [facility] Comment on above: Performed By: #### H EMO #### [facility] (DEFAULT) [address] [place] [address] Urea nitrogen/Creatinine [Mass ratio] 28 mg/mg Normal [facility] Comment on above: Performed By: #### H [facility] #### [facility] (DEFAULT) [address] [place] [address] [facility]-09[facility]24 [facility]SE POCon 08-09-2024 Glucose [Mass/Vol] 186 mg/dL High 70 - 179 mg/dL [facility] Interpretation and review of laboratory results Abnormal [facility] POC Sample Type CAPBL [facility] Glucose [Mass/Vol] 255 mg/dL High 70 - 179 mg/dL [facility] Interpretation and review of laboratory results Abnormal [facility] POC Sample Type CAPBL [facility] Glucose [Mass/Vol] 235 mg/dL High 70 - 179 mg/dL [facility] Interpretation and review of laboratory results Abnormal [facility] POC Sample Type CAPBL [facility] Glucose [Mass/Vol] 167 mg/dL 70 - 179 mg/dL [facility] POC Sample Type CAPBL [facility] INTERVENTIONAL UPPER ENDOSCO PYon 08-09-2024 Body surface area Derived from formula 1.9 m2 [facility] LAB, [facility] Radiology Study observation (narrative) [facility] MAGNESIUMon 08-09-2024 Interpretation and review of laboratory results Normal [facility] Magnesium [Mass/Vol] 1.8 mg/dL 1.6 - 2 .6 mg/dL [facility] Magnesium [Mass/Vol] 1.8 mg/dL Normal 1.6-2.6 [facility] Comment on above: Performed By: #### H [facility] #### [facility] (DEFAULT) [address] [place] [address] No Panel Informationon 08-09 [facility] PT,INR,PTTon 08-09-2024 aPTT Coag (PPP) [Time] 38.4 s High [facility] INR Coag (Bld) [Relative time] 1 {INR} 0.9 - 1.1 [facility] Interpretation and review of laboratory results Abnormal [facility] PT Coag (PPP) [Time] 13 s [facility] aPTT Coag (Bld) [Time] 38.4 s High 24.0-34.3 [facility] Comment on above: Performed By: #### B LDCULT #### [facility] (DEFAULT) [address] [place] [address] INR Coag (PPP) [Relative time] 1.0 {INR} Normal 0.9-1.1 [facility] Comment on above: Performed By: #### B LDCULT #### [facility] (DEFAULT) [address] [place] [address] PT Coag (PPP) [Time] 13.0 s Normal 11.9-14.2 [facility] Comment on above: Performed By: #### B LDCULT #### [facility] (DEFAULT) [address] [address] SURG PATH REQUESTon 08-10-19 Case Report Normal [facility] Comment on above: Result Comment: Surg ical Pathology Report Case: [id number] Authorizing Provider: Judson Keith DO Collected: 08/09/2024 10:07 AM Ordering Location: [facility] Received: 08/09/2024 12:13 PM Pathologist: Renae Glez MD Specimen: STOMACH, gastric, r/o HP Performed By: #### S URGP #### [facility] (DEFAULT) [address] [place] [address] Clinical History R/O HP. Associated Diagnosis: None. Medical History: No medical history provided. [facility] Comment on above: Performed By: #### S URGP #### [facility] (DEFAULT) [address] [place] [address] Gross Description [facility] Comment on above: Result Comment: The specimen is received in one properly labeled container with the patient's name and accession number. A. The specimen is designated "gastric, r/o hp" and consists of five fragments of jackson-pink soft tissue, from 0.2 up to 0.6 cm in greatest dimension. TE 1 Lab Use Only: JobID [id number] Grosser for this case was: Sunshine Hidalgo Performed By: #### S URGP #### [facility] (DEFAULT) [address] [place] [address] Microscopic Description A microscopic examination was performed. [facility] Comment on above: Performed By: #### S URGP #### [facility] (DEFAULT) [address] [place] [address] Pathologic Diagnosis [facility] Comment on above: Result Comment: Anjelica echols, biopsy: Focal erosion No Helicobacter pylori identified at 1005 EDT Performed By: #### S URGP #### [facility] (DEFAULT) [address] [address] Professional Interpretation Performed at: [facility] Comment on above: Result Comment: [facility] For Immediate Release [facility] Yes [address] [address] Performed By: #### S URGP #### [facility] (DEFAULT) [address] [address] CBC,PLATELETSon 08-08-2024 Erythrocyte distribution width (RBC) [Ratio] 13.6 % 10.8 - 14.9 % [facility] Hematocrit (Bld) [Volume fraction] 45.7 % High 34.9 - 44.3 % [facility] Hemoglobin (Bld) [Mass/Vol] 14.4 g/dL 11.4 - 15.2 g/dL [facility] Interpretation and review of laboratory results Abnormal [facility] MCH (RBC) [Entitic mass] 29.4 pg 25.9 - 33.9 pg [facility] MCHC (RBC) [Mass/Vol] 31.5 g/dL 31.4 - 35.9 g/dL [facility] MCV (RBC) [Entitic vol] 93.3 fL 79.6 - 97.7 fL [facility] Platelet mean volume (Bld) [Entitic vol] 10.9 fL 8.5 - 12.2 fL [facility] Platelets (Bld) [#/Vol] 212 10*3/uL 150 - 393 K/uL [facility] RBC (Bld) [#/Vol] 4.9 10*6/uL [facility] WBC (Bld) [#/Vol] 10.39 10*3/uL 3.99 - 11.19 K/uL [facility] Hematocrit (Bld) [Volume fraction] 45.7 % High 34.9-44.3 [facility] Comment on above: Performed By: #### H [facility] #### [facility] (DEFAULT) [address] [address] Hemoglobin (Bld) [Mass/Vol] 14.4 g/dL Normal 11.4-15.2 [facility] Comment on above: Performed By: #### H [facility] #### [facility] (DEFAULT) [address] [address] MCV (RBC) [Entitic vol] 93.3 fL Normal 79.6-97.7 O [facility] Comment on above: Performed By: #### H [facility] #### [facility] (DEFAULT) [address] [address] Mean Cell Hgb 29.4 pg Normal 25.9-33.9 [facility] Comment on above: Performed By: #### H EMOGC #### [facility] (DEFAULT) [address] [place] [address] Mean Cell Hgb Conc 31.5 g/dL Normal 31.4-35.9 [facility] Comment on above: Performed By: #### H EMOGC #### [facility] (DEFAULT) [address] [place] [address] Platelet mean volume (Bld) [Entitic vol] 10.9 fL Normal 8.5-12.2 [facility] Comment on above: Performed By: #### H EMOGC #### [facility] (DEFAULT) [address] [place] [address] Platelets (Bld) [#/Vol] 212 10*3/uL Normal 150-393 [facility] Comment on above: Performed By: #### H EMOGC #### [facility] (DEFAULT) [address] [place] [address] RBC (Bld) [#/Vol] 4.90 10*6/uL Normal 3.91-5.04 [facility] Comment on above: Performed By: #### H EMOGC #### [facility] (DEFAULT) [address] [place] [address] RBC Distribution 13.6 % Normal 10.8-14.9 [facility] Comment on above: Performed By: #### H EMOGC #### [facility] (DEFAULT) [address] [place] [address] WBC (Bld) [#/Vol] 10.39 10*3/uL Normal 3.99-11.19 [facility] Comment on above: Performed By: #### H EMOGC #### [facility] (DEFAULT) [address] [address] CHEM 7 (LYTES,BUN,CREA,GLUC) on 08-08-2024 Anion gap [Moles/Vol] 15 mmol/L 7 - 17 mmol/L [facility] Chloride [Moles/Vol] 104 mmol/L 98 - 10 8 mmol/L [facility] CO2 [Moles/Vol] 25 mmol/L 21 - 31 mmol/L [facility] Creatinine [Mass/Vol] 1.15 mg/dL 0.50 - 1.20 mg/dL [facility] eGFR, CKD-EPI, Female 48 Low - PINF [facility] Glucose [Mass/Vol] 111 mg/dL 70 - 179 mg/dL [facility] Interpretation and review of laboratory results Abnormal [facility] Osmolality Calc [Osmolality] 302 [facility] Potassium [Moles/Vol] 4.3 mmol/L 3.5 - 5.0 mmol/L [facility] Sodium [Moles/Vol] 140 mmol/L 135 - 145 mmol/L [facility] Urea nitrogen [Mass/Vol] 35 mg/dL High 7 - 25 mg/dL [facility] Urea nitrogen/Creatinine [Mass ratio] 30 mg/mg [facility] Anion gap [Moles/Vol] 15 mmol/L Normal 7-17 [facility] Comment on above: Performed By: #### HEYDI PALACIOS7 ####[facility] (DEFAULT)[address] [place] [address] Chloride [Moles/Vol] 104 mmol/L Normal 98-108 [facility] Comment on above: Performed By: #### Jiaden NGUYEN CHM7 ####[facility] (DEFAULT)[address] [place] [address] CO2 [Moles/Vol] 25 mmol/L Normal 21-31 [facility] Comment on above: Performed By: #### Jaiden NGUYEN CHM7 ####[facility] (DEFAULT)[address] [place] [address] Creatinine [Mass/Vol] 1.15 mg/dL Normal 0.50-1.20 [facility] Comment on above: Performed By: #### Jaiden NGUYEN CHM7 ####[facility] (DEFAULT)[address] [place] [address] GFR/1.73 sq M.predicted among non-blacks MDRD (S/P/Bld) [Vol rate/Area] 48 mL/min/{1.73_m2} Low >=60 [facility] Comment on above: Result Comment: Repo rted eGFR is based on the CKD-EPI 2020 equation using creatinine, age, and sex. Performed By: #### HEYDI APLACIOS7 ####[facility] (DEFAULT)[address] [place] [address] Glucose [Mass/Vol] 111 mg/dL Normal Nonfastin -179 mg/dL; Fastin-99 [facility] Comment on above: Performed By: #### HEYDI PALACIOS7 ####[facility] (DEFAULT)[address] [facility] [place] [address] Osmolality [Osmolality] 302 mosm/kg Normal 278-305 [facility] Comment on above: Performed By: #### HEYDI PALACIOS7 ####[facility] (DEFAULT)[address] [facility] [place] [address] Potassium [Moles/Vol] 4.3 mmol/L Normal 3.5-5.0 [facility] Comment on above: Performed By: #### HEYDI PALACIOS7 ####[facility] (DEFAULT)[address] [place] [address] Sodium [Moles/Vol] 140 mmol/L Normal 135-145 [facility] Comment on above: Performed By: #### HEYDI PALACIOS7 ####[facility] (DEFAULT)[address] [facility] [place] [place] [address] Urea nitrogen [Mass/Vol] 35 mg/dL High 7-25 [facility] Comment on above: Performed By: #### HEYDI PALACIOS7 ####[facility] (DEFAULT)[address] [facility] [place] [place] [address] Urea nitrogen/Creatinine [Mass ratio] 30 mg/mg Normal [facility] Comment on above: Performed By: #### M , CHM7 ####[facility] (DEFAULT)[address] [place] [address] CT HEAD WITHOUT CONTRASTon 0 08-08-2024 CT HEAD WITHOUT CONTRAST EXAM: CT HEAD WITHOUT CONTRAST, 08/08/2024 2:15 PM COMPARISON: CT HEAD WITHOUT [...] I have reviewed and approved this report. Normal [facility] CT Head WO contraston 2024 RADIOLOGY RADIOLOGY [facility] Radiology Study observation (narrative) [facility] GLUCOSE POCon 08-08-2024 Glucose [Mass/Vol] 150 mg/dL 70 - 179 mg/dL [facility] POC Sample [facility] Glucose [Mass/Vol] 148 mg/dL 70 - 179 mg/dL [facility] POC Sample Type CAPBL [facility] Glucose [Mass/Vol] 192 mg/dL High 70 - 179 mg/dL [facility] Interpretation and review of laboratory results Abnormal [facility] POC Sample Type [facility] Glucose [Mass/Vol] 198 mg/dL High 70 - 179 mg/dL [facility] Interpretation and review of laboratory results Abnormal [facility] POC Sample Type CAPBL [facility] Glucose [Mass/Vol] 186 mg/dL High 70 - 179 mg/dL [facility] Interpretation and review of laboratory results Abnormal [facility] POC Sample [facility] MAGNESIUMon 08-08-2024 Interpretation and review of laboratory results Normal [facility] Magnesium [Mass/Vol] 1.7 mg/dL 1.6 - 2 .6 mg/dL [facility] Magnesium [Mass/Vol] 1.7 mg/dL Normal 1.6-2.6 [facility] Comment on above: Performed By: #### M [facility] ####[facility] (DEFAULT)[facility] [place] [address] No Panel Informationon 08-08 [facility] URINALYSIS REFLEX TO CULTURE PERFORMABLEOrdered By: Danya Yates on 08-08-2024 Appearance (U) Cloudy Abnormal Clear [facility] Bacteria LM Ql (Urine sed) PRESENT Abnormal ABSENT [facility] Color (U) Yellow Yellow [facility] Epithelial cells.squamous LM Ql (Urine sed) 0-2/hpf 0-2/hpf, 3-5/hpf = 1+ [facility] Glucose Test strip (U) [Mass/Vol] Negative Negative [facility] Interpretation and review of laboratory results Abnormal [facility] Ketones (U) [Mass/Vol] Trace Abnormal Negative OS [facility] Leukocyte esterase Test strip Ql (U) Large Abnormal Negative [facility] Nitrite Ql (U) Positive Abnormal Negative [facility] pH (U) 7.0 [pH] 5.0 - 7.0 [facility] Protein (U) [Mass/Vol] Trace Abnormal Negative OS [facility] RBC (U) [#/Vol] Trace Abnormal Negative U [facility] RBC LM.HPF (Urine sed) [#/Area] 6-10 Abnormal [facility] Specific gravity (U) [Rel density] 1.023 1.001 - 1.035 [facility] Urobilinogen (U) [Mass/Vol] 1.0 E.U./dL 0.2 E.U/dL, 1.0 E.U/dL [facility] WBC LM.HPF (Urine sed) [#/Area] /[HPF] Abnormal [facility] URINALYSIS REFLEX TO CULTURE PERFORMABLEon 08-08-2024 Appearance (U) Cloudy Abnormal Clear [facility] Comment on above: Order Comment: For i ndwelling catheters, specimen collection is acceptable on catheter day 1 and 2 only. ? Performed By: #### T YPEC #### [facility] (DEFAULT) [address] [place] [address] Bacteria PRESENT Abnormal ABSENT [facility] Comment on above: Order Comment: For i ndwelling catheters, specimen collection is acceptable on catheter day 1 and 2 only. ? Performed By: #### T YPEC #### [facility] (DEFAULT) [address] [place] [address] Blood Urine Trace Abnormal Negative [facility] Comment on above: Order Comment: For i ndwelling catheters, specimen collection is acceptable on catheter day 1 and 2 only. ? Performed By: #### T YPEC #### [facility] (DEFAULT) [address] [place] [address] Color (U) Yellow Normal Yellow [facility] Comment on above: Order Comment: For i ndwelling catheters, specimen collection is acceptable on catheter day 1 and 2 only. ? Performed By: #### T YPEC #### [facility] (DEFAULT) [address] [place] [address] Glucose Ql (U) Negative Normal Negative [facility] Comment on above: Order Comment: For i ndwelling catheters, specimen collection is acceptable on catheter day 1 and 2 only. ? Performed By: #### T YPEC #### [facility] (DEFAULT) [address] [place] [address] Ketones Ql (U) Trace Abnormal Negative [facility] Comment on above: Order Comment: For i ndwelling catheters, specimen collection is acceptable on catheter day 1 and 2 only. ? Performed By: #### T YPEC #### [facility] (DEFAULT) [address] [place] [address] Leukocyte esterase Test strip Ql (U) Large Abnormal Negative [facility] Comment on above: Order Comment: For i ndwelling catheters, specimen collection is acceptable on catheter day 1 and 2 only. ? Performed By: #### T YPEC #### [facility] (DEFAULT) [address] [place] [address] Nitrites Urine Positive Abnormal Negative [facility] Comment on above: Order Comment: For i ndwelling catheters, specimen collection is acceptable on catheter day 1 and 2 only. ? Performed By: #### T YPEC #### [facility] (DEFAULT) [address] [place] [address] pH (U) 7.0 [pH] Normal 5.0-7.0 [facility] Comment on above: Order Comment: For i ndwelling catheters, specimen collection is acceptable on catheter day 1 and 2 only. ? Performed By: #### T YPEC #### [facility] (DEFAULT) [address] [place] [address] Protein Urine Trace Abnormal Negative [facility] Comment on above: Order Comment: For i ndwelling catheters, specimen collection is acceptable on catheter day 1 and 2 only. ? Performed By: #### T YPEC #### [facility] (DEFAULT) [address] [address] RBC Urine 6-10 Abnormal 0-2 [facility] Comment on above: Order Comment: For i ndwelling catheters, specimen collection is acceptable on catheter day 1 and 2 only. ? Performed By: #### T YPEC #### [facility] (DEFAULT) [address] [address] Specific [place] Urine 1.023 Normal 1.001-1.035 O [facility] Comment on above: Order Comment: For i ndwelling catheters, specimen collection is acceptable on catheter day 1 and 2 only. ? Performed By: #### T YPEC #### [facility] (DEFAULT) [address] [address] Squamous/Epithelial Cells, Urine 0-2/hpf Normal 0-2/hpf, 3-5/hpf = 1+ [facility] Comment on above: Order Comment: For i ndwelling catheters, specimen collection is acceptable on catheter day 1 and 2 only. ? Performed By: #### T YPEC #### [facility] (DEFAULT) [address] [address] Urobilinogen Urine 1.0 E.U./dL Normal 0.2 E.U/d L, 1.0 E.U/dL [facility] Comment on above: Order Comment: For i ndwelling catheters, specimen collection is acceptable on catheter day 1 and 2 only. ? Performed By: #### T YPEC #### [facility] (DEFAULT) [address] [address] WBC LM.HPF (Urine sed) [#/Area] /[HPF] Abnormal 0 - 5 [facility] Comment on above: Order Comment: For i ndwelling catheters, specimen collection is acceptable on catheter day 1 and 2 only. ? Performed By: #### T YPEC #### [facility] (DEFAULT) [address] [address] URINE CULTUREon 08-08-2024 Amikacin [Susceptibility] <= Invalid Interpretation Code [facility] Comment on above: Order Comment: For i ndwelling catheters, specimen collection is acceptable on catheter day 1 and 2 only. Lincoln top vacutainer. Urine must be to the fill line to process (4mls). If minimum volume, send urine in a yellow top vacutainer tube.For indwelling catheters, specimen collection is acceptable on catheter day 1 and 2 only. ? Performed By: #### T YPEC #### [facility] (DEFAULT) [address] [address] Ampicillin [Susceptibility] >=32 Resistant [facility] Comment on above: Order Comment: For i ndwelling catheters, specimen collection is acceptable on catheter day 1 and 2 only. [place] top vacutainer. Urine must be to the fill line to process (4mls). If minimum volume, send urine in a yellow top vacutainer tube.For indwelling catheters, specimen collection is acceptable on catheter day 1 and 2 only. ? Performed By: #### T YPEC #### [facility] (DEFAULT) [address] [address] Ampicillin+Sulbactam [Susceptibility] >=32 Resistant [facility] Comment on above: Order Comment: For i ndwelling catheters, specimen collection is acceptable on catheter day 1 and 2 only. Lincoln top vacutainer. Urine must be to the fill line to process (4mls). If minimum volume, send urine in a yellow top vacutainer tube.For indwelling catheters, specimen collection is acceptable on catheter day 1 and 2 only. ? Performed By: #### T YPEC #### [facility] (DEFAULT) [address] [address] ceFAZolin [Susceptibility] >= Resistant [facility] Comment on above: Order Comment: For i ndwelling catheters, specimen collection is acceptable on catheter day 1 and 2 only. [place] top vacutainer. Urine must be to the fill line to process (4mls). If minimum volume, send urine in a yellow top vacutainer tube.For indwelling catheters, specimen collection is acceptable on catheter day 1 and 2 only. ? Result Comment: Cefa zolin susceptibility results can be inferred to the following oral cephalosporins: cephalexin, cefuroxime, and cefdinir. Performed By: #### T YPEC #### [facility] (DEFAULT) [address] [address] Cefepime [Susceptibility] <= Invalid Interpretation Code [facility] Comment on above: Order Comment: For i ndwelling catheters, specimen collection is acceptable on catheter day 1 and 2 only. [place] top vacutainer. Urine must be to the fill line to process (4mls). If minimum volume, send urine in a yellow top vacutainer tube.For indwelling catheters, specimen collection is acceptable on catheter day 1 and 2 only. ? Performed By: #### T YPEC #### [facility] (DEFAULT) [address] [address] cefTRIAXone [Susceptibility] <= Invalid Interpretation Code [facility] Comment on above: Order Comment: For i ndwelling catheters, specimen collection is acceptable on catheter day 1 and 2 only. Lincoln top vacutainer. Urine must be to the fill line to process (4mls). If minimum volume, send urine in a yellow top vacutainer tube.For indwelling catheters, specimen collection is acceptable on catheter day 1 and 2 only. ? Performed By: #### T YPEC #### [facility] (DEFAULT) [address] [address] Ciprofloxacin [Susceptibility] >= Resistant [facility] Comment on above: Order Comment: For i ndwelling catheters, specimen collection is acceptable on catheter day 1 and 2 only. Lincoln top vacutainer. Urine must be to the fill line to process (4mls). If minimum volume, send urine in a yellow top vacutainer tube.For indwelling catheters, specimen collection is acceptable on catheter day 1 and 2 only. ? Performed By: #### T YPEC #### [facility] (DEFAULT) [address] [address] Ertapenem [Susceptibility] <= Invalid Interpretation Code [facility] Comment on above: Order Comment: For i ndwelling catheters, specimen collection is acceptable on catheter day 1 and 2 only. Lincoln top vacutainer. Urine must be to the fill line to process (4mls). If minimum volume, send urine in a yellow top vacutainer tube.For indwelling catheters, specimen collection is acceptable on catheter day 1 and 2 only. ? Performed By: #### T YPEC #### [facility] (DEFAULT) [address] [address] Gentamicin [Susceptibility] <= Invalid Interpretation Code [facility] Comment on above: Order Comment: For i ndwelling catheters, specimen collection is acceptable on catheter day 1 and 2 only. Lincoln top vacutainer. Urine must be to the fill line to process (4mls). If minimum volume, send urine in a yellow top vacutainer tube.For indwelling catheters, specimen collection is acceptable on catheter day 1 and 2 only. ? Performed By: #### T YPEC #### [facility] (DEFAULT) [address] [address] levoFLOXacin [Susceptibility] >= Resistant [facility] Comment on above: Order Comment: For i ndwelling catheters, specimen collection is acceptable on catheter day 1 and 2 only. Lincoln top vacutainer. Urine must be to the fill line to process (4mls). If minimum volume, send urine in a yellow top vacutainer tube.For indwelling catheters, specimen collection is acceptable on catheter day 1 and 2 only. ? Performed By: #### T YPEC #### [facility] (DEFAULT) [address] [address] Nitrofurantoin [Susceptibility] 128 ug/mL Resistant [facility] Comment on above: Order Comment: For i ndwelling catheters, specimen collection is acceptable on catheter day 1 and 2 only. Lincoln top vacutainer. Urine must be to the fill line to process (4mls). If minimum volume, send urine in a yellow top vacutainer tube.For indwelling catheters, specimen collection is acceptable on catheter day 1 and 2 only. ? Performed By: #### T YPEC #### [facility] (DEFAULT) [address] [address] Piperacillin+Tazobactam [Susceptibility] 8 ug/mL Invalid Interpretation Code [facility] Comment on above: Order Comment: For i ndwelling catheters, specimen collection is acceptable on catheter day 1 and 2 only. Lincoln top vacutainer. Urine must be to the fill line to process (4mls). If minimum volume, send urine in a yellow top vacutainer tube.For indwelling catheters, specimen collection is acceptable on catheter day 1 and 2 only. ? Performed By: #### T YPEC #### [facility] (DEFAULT) [address] [address] Trimethoprim+Sulfametho xazole [Susceptibility] <= Invalid Interpretation Code [facility] Comment on above: Order Comment: For i ndwelling catheters, specimen collection is acceptable on catheter day 1 and 2 only. Lincoln top vacutainer. Urine must be to the fill line to process (4mls). If minimum volume, send urine in a yellow top vacutainer tube.For indwelling catheters, specimen collection is acceptable on catheter day 1 and 2 only. ? Performed By: #### T YPEC #### [facility] (DEFAULT) [address] [address] CBC,PLATELETSon 08-07-2024 Erythrocyte distribution width (RBC) [Ratio] 13.9 % 10.8 - 14.9 % [facility] Hematocrit (Bld) [Volume fraction] 43.1 % 34.9 - 44.3 % [facility] Hemoglobin (Bld) [Mass/Vol] 13.7 g/dL 11.4 - 15.2 g/dL [facility] Interpretation and review of laboratory results Abnormal [facility] MCH (RBC) [Entitic mass] 29.6 pg 25.9 - 33.9 pg [facility] MCHC (RBC) [Mass/Vol] 31.8 g/dL 31.4 - 35.9 g/dL [facility] MCV (RBC) [Entitic vol] 93.1 fL 79.6 - 97.7 fL [facility] Platelet mean volume (Bld) [Entitic vol] 11.1 fL 8.5 - 12.2 fL [facility] Platelets (Bld) [#/Vol] 214 10*3/uL 150 - 393 K/uL [facility] RBC (d) [#/Vol] 4.63 10*6/uL [facility] WBC (Bld) [#/Vol] 11.3 10*3/uL High 3.99 - 11.19 K/uL [facility] CHEM 7 (LYTES,BUN,CREA,GLUC) on 08-07-2024 Anion gap [Moles/Vol] 13 mmol/L 7 - 17 mmol/L [facility] Chloride [Moles/Vol] 105 mmol/L 98 - 10 8 mmol/L [facility] CO2 [Moles/Vol] 28 mmol/L 21 - 31 mmol/L [facility] Creatinine [Mass/Vol] 1.19 mg/dL 0.50 - 1.20 mg/dL [facility] eGFR, CKD-EPI, Female 47 Low - PINF [facility] Glucose [Mass/Vol] 90 mg/dL 70 - 179 mg/dL [facility] Interpretation and review of laboratory results Abnormal [facility] Osmolality Calc [Osmolality] 304 [facility] Potassium [Moles/Vol] 4.2 mmol/L 3.5 - 5.0 mmol/L [facility] Sodium [Moles/Vol] 142 mmol/L 135 - 145 mmol/L [facility] Urea nitrogen [Mass/Vol] 34 mg/dL High 7 - 25 mg/dL [facility] Urea nitrogen/Creatinine [Mass ratio] 29 mg/mg [facility] GLUCOSE POCon 08-07-2024 Glucose [Mass/Vol] 185 mg/dL High 70 - 179 mg/dL [facility] Interpretation and review of laboratory results Abnormal [facility] POC Sample Type CAPBL [facility] Glucose [Mass/Vol] 106 mg/dL 70 - 179 mg/dL [facility] POC Sample Type CAPBL [facility] Glucose [Mass/Vol] 104 mg/dL 70 - 179 mg/dL [facility] POC Sample Type CAPBL [facility] MAGNESIUMon 08-07-2024 Interpretation and review of laboratory results Normal [facility] Magnesium [Mass/Vol] 1.8 mg/dL 1.6 - 2 .6 mg/dL [facility] No Panel Informationon 08-07 [facility] CBC,PLATELETSon 08-06-2024 Hematocrit (Bld) [Volume fraction] 43.1 % Normal 34.9-44.3 [facility] Comment on above: Performed By: #### X M #### [facility] (DEFAULT) [address] [place] [address] Hemoglobin (Bld) [Mass/Vol] 13.7 g/dL Normal 11.4-15.2 [facility] Comment on above: Performed By: #### X M #### [facility] (DEFAULT) [address] [place] [address] MCV (RBC) [Entitic vol] 93.1 fL Normal 79.6-97.7 O [facility] Comment on above: Performed By: #### X M #### [facility] (DEFAULT) [address] [place] [address] Mean Cell Hgb 29.6 pg Normal 25.9-33.9 [facility] Comment on above: Performed By: #### X M #### [facility] (DEFAULT) [address] [place] [address] Mean Cell Hgb Conc 31.8 g/dL Normal 31.4-35.9 [facility] Comment on above: Performed By: #### X M #### [facility] (DEFAULT) [address] [place] [address] Platelet mean volume (Bld) [Entitic vol] 11.1 fL Normal 8.5-12.2 [facility] Comment on above: Performed By: #### X M #### [facility] (DEFAULT) [address] [place] [address] Platelets (Bld) [#/Vol] 214 10*3/uL Normal 150-393 [facility] Comment on above: Performed By: #### X M #### [facility] (DEFAULT) [address] [place] [address] RBC (Bld) [#/Vol] 4.63 10*6/uL Normal 3.91-5.04 [facility] Comment on above: Performed By: #### X M #### [facility] (DEFAULT) [address] [place] [address] RBC Distribution 13.9 % Normal 10.8-14.9 [facility] Comment on above: Performed By: #### X M #### [facility] (DEFAULT) [address] [place] [address] WBC (Bld) [#/Vol] 11.30 10*3/uL High 3.99-11.19 [facility] Comment on above: Performed By: #### X M #### [facility] (DEFAULT) [address] [place] [address] Erythrocyte distribution width (RBC) [Ratio] 13.9 % 10.8 - 14.9 % [facility] Hematocrit (Bld) [Volume fraction] 44 % 34.9 - 44.3 % [facility] Hemoglobin (Bld) [Mass/Vol] 13.9 g/dL 11.4 - 15.2 g/dL [facility] Interpretation and review of laboratory results Abnormal [facility] MCH (RBC) [Entitic mass] 29.1 pg 25.9 - 33.9 pg [facility] MCHC (RBC) [Mass/Vol] 31.6 g/dL 31.4 - 35.9 g/dL [facility] MCV (RBC) [Entitic vol] 92.2 fL 79.6 - 97.7 fL [facility] Platelet mean volume (Bld) [Entitic vol] 10.7 fL 8.5 - 12.2 fL [facility] Platelets (Bld) [#/Vol] 216 10*3/uL 150 - 393 K/uL [facility] RBC (Bld) [#/Vol] 4.77 10*6/uL [facility] WBC (Bld) [#/Vol] 12.14 10*3/uL High 3.99 - 11.19 K/uL [facility] CHEM 7 (LYTES,BUN,CREA,GLUC) on 08-06-2024 Anion gap [Moles/Vol] 13 mmol/L Normal 7-17 [facility] Comment on above: Performed By: #### Jaiden NGUYEN CHM7 ####[facility] (DEFAULT)[address] [place] [address] Chloride [Moles/Vol] 105 mmol/L Normal 98-108 [facility] Comment on above: Performed By: #### Jaiden NGUYEN CHM7 ####[facility] (DEFAULT)[address] [place] [address] CO2 [Moles/Vol] 28 mmol/L Normal 21-31 [facility] Comment on above: Performed By: #### Jaiden NGUYEN CHM7 ####[facility] (DEFAULT)[address] [facility] [place] [address] Creatinine [Mass/Vol] 1.19 mg/dL Normal 0.50-1.20 [facility] Comment on above: Performed By: #### Jaiden NGUYEN CHM7 ####[facility] (DEFAULT)[address] [place] [address] GFR/1.73 sq M.predicted among non-blacks MDRD (S/P/Bld) [Vol rate/Area] 47 mL/min/{1.73_m2} Low >=60 [facility] Comment on above: Result Comment: Repo rted eGFR is based on the CKD-EPI 2020 equation using creatinine, age, and sex. Performed By: #### HEYDI PALACIOS7 ####[facility] (DEFAULT)[address] [place] [address] Glucose [Mass/Vol] 90 mg/dL Normal Nonfastin -179 mg/dL; Fastin-99 [facility] Comment on above: Performed By: #### HEYDI PALACIOS7 ####[facility] (DEFAULT)[address] [place] [address] Osmolality [Osmolality] 304 mosm/kg Normal 278-305 [facility] Comment on above: Performed By: #### HEYDI PALACIOS7 ####[facility] (DEFAULT)[address] [place] [address] Potassium [Moles/Vol] 4.2 mmol/L Normal 3.5-5.0 [facility] Comment on above: Performed By: #### CAMERON PALACIOS ####[facility] (DEFAULT)[address] [place] [address] Sodium [Moles/Vol] 142 mmol/L Normal 135-145 [facility] Comment on above: Performed By: #### HEYDI PALACIOS7 ####[facility] (DEFAULT)[address] [place] [address] Urea nitrogen [Mass/Vol] 34 mg/dL High 7-25 [facility] Comment on above: Performed By: #### HEYDI PALACIOS7 ####[facility] (DEFAULT)[address] [place] [address] Urea nitrogen/Creatinine [Mass ratio] 29 mg/mg Normal [facility] Comment on above: Performed By: #### HEYDI PALACIOS7 ####[facility] (DEFAULT)[address] [place] [address] Anion gap [Moles/Vol] 14 mmol/L 7 - 17 mmol/L [facility] Chloride [Moles/Vol] 107 mmol/L 98 - 10 8 mmol/L [facility] CO2 [Moles/Vol] 27 mmol/L 21 - 31 mmol/L [facility] Creatinine [Mass/Vol] 1.19 mg/dL 0.50 - 1.20 mg/dL [facility] eGFR, CKD-EPI, Female 47 Low - PINF [facility] Glucose [Mass/Vol] 88 mg/dL 70 - 179 mg/dL [facility] Interpretation and review of laboratory results Abnormal [facility] Osmolality Calc [Osmolality] 307 [facility] Potassium [Moles/Vol] 3.9 mmol/L 3.5 - 5.0 mmol/L [facility] Sodium [Moles/Vol] 144 mmol/L 135 - 145 mmol/L [facility] Urea nitrogen [Mass/Vol] 34 mg/dL High 7 - 25 mg/dL [facility] Urea nitrogen/Creatinine [Mass ratio] 29 mg/mg [facility] GLUCOSE POCon 08-06-2024 Glucose [Mass/Vol] 166 mg/dL 70 - 179 mg/dL [facility] Glucose [Mass/Vol] 106 mg/dL 70 - 179 mg/dL [facility] Glucose [Mass/Vol] 100 mg/dL 70 - 179 mg/dL [facility]OC [facility] Glucose [Mass/Vol] 219 mg/dL High 70 - 179 mg/dL [facility] Interpretation and review of laboratory results Abnormal [facility] Glucose [Mass/Vol] 249 mg/dL High 70 - 179 mg/dL [facility] Glucose [Mass/Vol] 178 mg/dL 70 - 179 mg/dL [facility] Glucose [Mass/Vol] 194 mg/dL High 70 - 179 mg/dL [facility] Glucose [Mass/Vol] 93 mg/dL 70 - 179 mg/dL [facility] POC Sample Type VENO [facility] IONIZED CALCIUM, WHOLE BLOOD Ordered By: Zuleika Blunt on 08-06-2024 Calcium.ionized (Bld) [Moles/Vol] 4.72 mg/dL 4.60 - 5.30 mg/dL [facility] Interpretation and review of laboratory results Normal [facility] MAGNESIUMon 08-06-2024 Magnesium [Mass/Vol] 1.8 mg/dL Normal 1.6-2.6 [facility] Comment on above: Performed By: #### M WENDY M7 ####[facility] (DEFAULT)[address] [place] [address] Magnesium [Mass/Vol] 2.4 mg/dL 1.6 - 2 .6 mg/dL [facility] No Panel Informationon 08-06 POC Sample Type CAPBL [facility] Interpretation and review of laboratory results Abnormal [facility] POC Sample Type CAPBL [facility] Interpretation and review of laboratory results Normal [facility] PHOSPHATE, INORGANICon 08-06 Phosphate [Mass/Vol] 3.2 mg/dL 2.2 - 4 .6 mg/dL [facility] RF videography Hypopharynx a nd Esophagus Views W liquid and paste contrast PO during swallowingon 08-06-2024 RADIOLOGY RADIOLOGY [facility] Radiology Study observation (narrative) [facility] RF videography Hypopharynx a nd Esophagus Views W liquid and paste contrast PO during swallowingOrdered By: Gerry Resendez on 08-06-2024 [facility] Work Phone: SPEECH MODIFIED BARIUM SWALL OWon 08-06-2024 [facility] XR FLUORO MODIFIED BARIUM SW ALLOW WITH SPEECHon 08-06-2024 XR FLUORO MODIFIED BARIUM SWALLOW WITH SPEECH EXAM: XR FLUORO MODIFIED BARIUM SWALLOW WITH SPEECH, 08/06/2024 09:37 AM COMPARISON: [...] for specific therapeutic recommendations, please see the ferryboat ticket taker report of the speech pathologist. Examination performed by ARCADIO Nicole, under the direct supervision of Gerry Resendez M.D., who was immediately available on site during the examination. I personally viewed and interpreted these images and I have reviewed and approved this report. Normal [facility] CBC,PLATELETSon 08-05-2024 Hematocrit (Bld) [Volume fraction] 44.0 % Normal 34.9-44.3 [facility] Comment on above: Performed By: #### B LDCULT #### [facility] (DEFAULT) [address] [place] [address] Hemoglobin (Bld) [Mass/Vol] 13.9 g/dL Normal 11.4-15.2 [facility] Comment on above: Performed By: #### B LDCULT #### [facility] (DEFAULT) [address] [address] MCV (RBC) [Entitic vol] 92.2 fL Normal 79.6-97.7 O [facility] Comment on above: Performed By: #### B LDCULT #### [facility] (DEFAULT) [address] [address] Mean Cell Hgb 29.1 pg Normal 25.9-33.9 [facility] Comment on above: Performed By: #### B LDCULT #### [facility] (DEFAULT) [address] [place] [address] Mean Cell Hgb Conc 31.6 g/dL Normal 31.4-35.9 [facility] Comment on above: Performed By: #### B LDCULT #### [facility] (DEFAULT) [address] [place] [address] Platelet mean volume (Bld) [Entitic vol] 10.7 fL Normal 8.5-12.2 [facility] Comment on above: Performed By: #### B LDCULT #### [facility] (DEFAULT) [address] [place] [address] Platelets (Bld) [#/Vol] 216 10*3/uL Normal 150-393 [facility] Comment on above: Performed By: #### B LDCULT #### [facility] (DEFAULT) [address] [place] [address] RBC (Bld) [#/Vol] 4.77 10*6/uL Normal 3.91-5.04 [facility] Comment on above: Performed By: #### B LDCULT #### [facility] (DEFAULT) [address] [place] [address] RBC Distribution 13.9 % Normal 10.8-14.9 [facility] Comment on above: Performed By: #### B LDCULT #### [facility] (DEFAULT) [address] [place] [address] WBC (Bld) [#/Vol] 12.14 10*3/uL High 3.99-11.19 [facility] Comment on above: Performed By: #### B LDCULT #### [facility] (DEFAULT) [address] [place] [address] Erythrocyte distribution width (RBC) [Ratio] 13.9 % 10.8 - 14.9 % [facility] Hematocrit (Bld) [Volume fraction] 39.6 % 34.9 - 44.3 % [facility] Hemoglobin (Bld) [Mass/Vol] 12.6 g/dL 11.4 - 15.2 g/dL [facility] Interpretation and review of laboratory results Normal [facility] MCH (RBC) [Entitic mass] 29.3 pg 25.9 - 33.9 pg [facility] MCHC (RBC) [Mass/Vol] 31.8 g/dL 31.4 - 35.9 g/dL [facility] MCV (RBC) [Entitic vol] 92.1 fL 79.6 - 97.7 fL [facility] Platelet mean volume (Bld) [Entitic vol] 10.7 fL 8.5 - 12.2 fL [facility] Platelets (Bld) [#/Vol] 198 10*3/uL 150 - 393 K/uL [facility] RBC (Bld) [#/Vol] 4.3 10*6/uL [facility] WBC (Bld) [#/Vol] 10.61 10*3/uL 3.99 - 11.19 K/uL [facility] Hematocrit (Bld) [Volume fraction] 39.6 % Normal 34.9-44.3 [facility] Comment on above: Performed By: #### H [facility] ####[facility] (DEFAULT)[address] [place] [address] Hemoglobin (Bld) [Mass/Vol] 12.6 g/dL Normal 11.4-15.2 [facility] Comment on above: Performed By: #### H [facility] ####[facility] (DEFAULT)[address] [place] [address] MCV (RBC) [Entitic vol] 92.1 fL Normal 79.6-97.7 O [facility] Comment on above: Performed By: #### H [facility] ####[facility] (DEFAULT)[address] [place] [address] Mean Cell Hgb 29.3 pg Normal 25.9-33.9 [facility] Comment on above: Performed By: #### H EMOGC ####[facility] (DEFAULT)[address] [place] [address] Mean Cell Hgb Conc 31.8 g/dL Normal 31.4-35.9 [facility] Comment on above: Performed By: #### H EMOGC ####[facility] (DEFAULT)[address] [facility] [place] [address] Platelet mean volume (Bld) [Entitic vol] 10.7 fL Normal 8.5-12.2 [facility] Comment on above: Performed By: #### H EMOGC ####[facility] (DEFAULT)[address] [place] [address] Platelets (Bld) [#/Vol] 198 10*3/uL Normal 150-393 [facility] Comment on above: Performed By: #### H EMOGC ####[facility] (DEFAULT)[address] [place] [address] RBC (Bld) [#/Vol] 4.30 10*6/uL Normal 3.91-5.04 [facility] Comment on above: Performed By: #### H EMOGC ####[facility] (DEFAULT)[address] [place] [address] RBC Distribution 13.9 % Normal 10.8-14.9 [facility] Comment on above: Performed By: #### H EMOGC ####[facility] (DEFAULT)[address] [facility] [place] [address] WBC (Bld) [#/Vol] 10.61 10*3/uL Normal 3.99-11.19 [facility] Comment on above: Performed By: #### H EMOGC ####[facility] (DEFAULT)[address] [place] [address] CHEM 7 (LYTES,BUN,CREA,GLUC) on 08-05-2024 Anion gap [Moles/Vol] 14 mmol/L Normal 7-17 [facility] Comment on above: Performed By: #### S URGP #### [facility] (DEFAULT) [address] [place] [address] Chloride [Moles/Vol] 107 mmol/L Normal 98-108 [facility] Comment on above: Performed By: #### S URGP #### [facility] (DEFAULT) [address] [place] [address] CO2 [Moles/Vol] 27 mmol/L Normal 21-31 [facility] Comment on above: Performed By: #### S URGP #### [facility] (DEFAULT) [address] [place] [address] Creatinine [Mass/Vol] 1.19 mg/dL Normal 0.50-1.20 [facility] Comment on above: Performed By: #### S URGP #### [facility] (DEFAULT) [address] [place] [address] GFR/1.73 sq M.predicted among non-blacks MDRD (S/P/Bld) [Vol rate/Area] 47 mL/min/{1.73_m2} Low >=60 [facility] Comment on above: Result Comment: Repo rted eGFR is based on the CKD-EPI 2020 equation using creatinine, age, and sex. Performed By: #### S URGP #### [facility] (DEFAULT) [address] [place] [address] Glucose [Mass/Vol] 88 mg/dL Normal Nonfastin -179 mg/dL; Fastin-99 [facility] Comment on above: Performed By: #### S URGP #### [facility] (DEFAULT) [address] [place] [address] Osmolality [Osmolality] 307 mosm/kg High 278-305 [facility] Comment on above: Performed By: #### S URGP #### [facility] (DEFAULT) [address] [place] [address] 64778 Potassium [Moles/Vol] 3.9 mmol/L Normal 3.5-5.0 [facility] Comment on above: Performed By: #### S URGP #### [facility] (DEFAULT) [address] [place] [address] 50133 Sodium [Moles/Vol] 144 mmol/L Normal 135-145 [facility] Comment on above: Performed By: #### S URGP #### [facility] (DEFAULT) [address] [place] [address] 43498 Urea nitrogen [Mass/Vol] 34 mg/dL High 7-25 [facility] Comment on above: Performed By: #### S URGP #### [facility] (DEFAULT) [address] [place] [address] 02414 Urea nitrogen/Creatinine [Mass ratio] 29 mg/mg Normal [facility] Comment on above: Performed By: #### S URGP #### [facility] (DEFAULT) [address] [place] [address] 00844 Anion gap [Moles/Vol] 14 mmol/L 7 - 17 mmol/L [facility] Chloride [Moles/Vol] 108 mmol/L 98 - 10 8 mmol/L [facility] CO2 [Moles/Vol] 25 mmol/L 21 - 31 mmol/L [facility] Creatinine [Mass/Vol] 1.45 mg/dL High 0.50 - 1.20 mg/dL [facility] eGFR, CKD-EPI, Female 37 Low - PINF [facility] Glucose [Mass/Vol] 242 mg/dL High 70 - 179 mg/dL [facility] Interpretation and review of laboratory results Abnormal [facility] Osmolality Calc [Osmolality] 315 High [facility] Potassium [Moles/Vol] 3.8 mmol/L 3.5 - 5.0 mmol/L [facility] Sodium [Moles/Vol] 143 mmol/L 135 - 145 mmol/L [facility] Urea nitrogen [Mass/Vol] 35 mg/dL High 7 - 25 mg/dL [facility] Urea nitrogen/Creatinine [Mass ratio] 24 mg/mg [facility] Anion gap [Moles/Vol] 14 mmol/L Normal 7-17 [facility] Comment on above: Performed By: #### X M #### [facility] (DEFAULT) [address] [place] [address] 69703 Chloride [Moles/Vol] 108 mmol/L Normal 98-108 [facility] Comment on above: Performed By: #### X M #### [facility] (DEFAULT) [address] [place] [address] 46879 CO2 [Moles/Vol] 25 mmol/L Normal 21-31 [facility] Comment on above: Performed By: #### X M #### [facility] (DEFAULT) [address] [place] [address] 58546 Creatinine [Mass/Vol] 1.45 mg/dL High 0.50-1.20 [facility] Comment on above: Performed By: #### X M #### [facility] (DEFAULT) [address] [place] [address] 63234 GFR/1.73 sq M.predicted among non-blacks MDRD (S/P/Bld) [Vol rate/Area] 37 mL/min/{1.73_m2} Low >=60 [facility] Comment on above: Result Comment: Repo rted eGFR is based on the CKD-EPI 2020 equation using creatinine, age, and sex. Performed By: #### X M #### [facility] (DEFAULT) [address] [place] [address] 62521 Glucose [Mass/Vol] 242 mg/dL High Nonfastin -179 mg/dL; Fastin-99 [facility] Comment on above: Performed By: #### X M #### [facility] (DEFAULT) [address] [place] [address] 33457 Osmolality [Osmolality] 315 mosm/kg High 278-305 [facility] Comment on above: Performed By: #### X M #### [facility] (DEFAULT) [address] [place] [address] Potassium [Moles/Vol] 3.8 mmol/L Normal 3.5-5.0 [facility] Comment on above: Performed By: #### X M #### [facility] (DEFAULT) [address] [place] [address] Sodium [Moles/Vol] 143 mmol/L Normal 135-145 [facility] Comment on above: Performed By: #### X M #### [facility] (DEFAULT) [address] [place] [address] 56199 Urea nitrogen [Mass/Vol] 35 mg/dL High 7-25 [facility] Comment on above: Performed By: #### X M #### [facility] (DEFAULT) [address] [place] [address] 24638 Urea nitrogen/Creatinine [Mass ratio] 24 mg/mg Normal [facility] Comment on above: Performed By: #### X M #### [facility] (DEFAULT) [address] [place] [address] 76108 Cardiac echo study Procedure Ordered By: Ezequiel Figueroa on 08-05-2024 Ao ASC index 1.56 cm/m2 [facility] Work Phone: [phone] Ao peak fidel 1.23 m/s [facility] Work Phone: [phone] Ao SOV index 1.56 cm/m2 [facility] Work Phone: Ao STJ index 1.36 cm/m2 [facility] Work Phone: [phone] Ao VTI 24.81 cm [facility] Work Phone: Ascending aorta 2.97 cm [facility] Work Phone: [phone] AV LVOT peak gradient 4 mmHg [facility] Work Phone: [phone] AV mean gradient 4 mmHg [facility] Work Phone: [phone] AV peak gradient 6 mmHG [facility] Work Phone: [phone] AV valve area 2.72 cm2 [facility] Work Phone: [phone] AV Velocity Ratio 0.8 [facility] Work Phone: [phone] MARKUS (continuity Vmax) 2.55 cm2 [facility] Work Phone: [phone] MARKUS (continuity VTI) 2.72 cm2 [facility] Work Phone: [phone] MARKUS index (continuity Vmax) 1.34 m/s [facility] Work Phone: [phone] MARKUS index (continuity VTI) 1.43 cm2/m2 [facility] Work Phone: [phone] Avg e' pk fidel 0.09 m/s [facility] Work Phone: [phone] Body surface area Derived from formula 1.9 m2 [facility] Work Phone: [phone] BP EF 55 % [facility] Work Phone: [phone] DI (Vmax) 0.8 [facility] Work Phone: [phone] DI (VTI) 0.86 m/2 [facility] Work Phone: [phone] e' lateral pk fidel 0.0845 m/s [facility] Work Phone: [phone] e' lateral pk fidel 0.08 m/s [facility] Work Phone: [phone] e' septal pk fidel 0.0953 m/s [facility] Work Phone: [phone] e' septal pk fidel 0.1 m/s [facility] Work Phone: [phone] EF SP 2CH 56 [facility] Work Phone: [phone] EF SP 4CH 51 [facility] Work Phone: [phone] EST RAP 3 mmHg [facility] Work Phone: [phone] EST RVSP 29 mmHg [facility] Work Phone: [phone] FS 31 % [facility] Work Phone: [phone] IVC ostium 1.64 cm [facility] Work Phone: [phone] IVS 1.14 cm [facility] Work Phone: [phone] LA area 4CH 29.07 cm2 [facility] Work Phone: [phone] LA ESV BP (MOD) 86 mL [facility] Work Phone: [phone] LA ESV BP (MOD) index 45 mL/m2 [facility] Work Phone: [phone] LA ESV SP 2CH (MOD) 81 mL [facility] Work Phone: [phone] LA ESV SP 4CH (MOD) 93 mL [facility] Work Phone: [phone] LV EDV BP 88 mL [facility] Work Phone: [phone] LV EDV SP 2CH 85 mL [facility] Work Phone: [phone] LV EDV SP 4CH 86 mL [facility] Work Phone: [phone] LV ESV BP 40 mL [facility] Work Phone: [phone] LV ESV SP 2CH 37 mL [facility] Work Phone: [phone] LV ESV SP 4CH 42 mL [facility] Work Phone: [phone] LV mass 146.48 g [facility] Work Phone: [phone] LV Mass Index 77.1 g/m2 [facility] Work Phone: [phone] LV RWT 0.56 [facility] Work Phone: [phone] LV stroke volume BP (ml) 48 mL [facility] Work Phone: [phone] LV stroke volume index BP 25.26 mL/m2 [facility] Work Phone: [phone] LVIDD 3.93 cm [facility] Work Phone: [phone] LVIDS 2.7 cm [facility] Work Phone: [phone] LVOT area 3.17 cm2 [facility] Work Phone: [phone] LVOT diameter 2.01 cm [facility] Work Phone: [phone] LVOT peak fidel 0.99 m/s [facility] Work Phone: [phone] LVOT peak VTI 21.3 cm [facility] Work Phone: [phone] LVOT stroke volume 68 cm3 [facility] Work Phone: [phone] LVOT stroke volume index 35.55 ml/m2 [facility] Work Phone: [phone] MV mean gradient 3 mmHg [facility] Work Phone: [phone] MV peak gradient 6 mmHg [facility] Work Phone: [phone] MV valve area by continuity eq 2.61 cm2 [facility] Work Phone: [phone] MV VTI 25.92 cm [facility] Work Phone: [phone] MVA (continuity VTI) 2.6 cm [facility] Work Phone: [phone] OSU AV VTI RATIO PRE STRESS 0.86 [facility] Work Phone: OSU ECHO LV BIPLANE SYSTOLIC VOLUME INDEX 21.05 mL/m2 [facility] Work Phone: [facility]SU ECHO LV BP DIASTOLIC VOLUME INDEX 46.32 mL/m2 [facility] Work Phone: PV mean gradient 3 mmHg [facility] Work Phone: PV peak gradient 6 mmHg [facility] Work Phone: PV PK FIDEL 1.23 m/s [facility] Work Phone: PW 1.11 cm [facility] Work Phone: RA area 4CH (MOD) 22.74 cm2 [facility] Work Phone: RA vol index 4CH (MOD) 36.32 mL/m2 O [facility] Work Phone: Right atrium volume 4 chamber method of disks 69 mL [facility] Work Phone: RV Area diastolic 17.5 cm2 [facility] Work Phone: RV Area systolic 11.9 cm2 [facility] Work Phone: RV basal diam 4.56 cm [facility] Work Phone: RV Fractional area change 32 % [facility] Work Phone: RV long diam 6.91 cm [facility] Work Phone: RV mid diam 2.91 cm [facility] Work Phone: RV S' 12.81 cm/s [facility] Work Phone: RVOT peak gradient 5 mmHg [facility] Work Phone: RVOT peak fidel 1.07 m/s [facility] Work Phone: [phone] RVOT peak VTI 20.1 cm [facility] Work Phone: [phone] Sinus 2.97 cm [facility] Work Phone: [phone] STJ 2.58 cm [facility] Work Phone: [phone] Stroke Volume 68 cm/mL [facility] Work Phone: [phone] Stroke volume index 36 [facility] Work Phone: [phone] TAPSE 2.08 cm [facility] Work Phone: [phone] TR pk grad 26 mmHg [facility] Work Phone: [phone] TR pk fidel 2.53 m/s [facility] Work Phone: [phone] [facility] Work Phone: Cardiac echo study Procedure on 08-05-2024 [facility] Radiology Study observation (narrative) [facility] ECHOCARDIOGRAMon 08-05-2024 Echocardiography ? No prior study at this institution [...] from the original result were not included. [facility] Facility [facility] Patient Information Patient Name Lindsay Acuna Legal Sex Female Indication for Exam Priority: [...] assessed. Reading Providers Reading Role Read Date Ezequiel Figueroa DO Echo [place] 08/05/2024 Left Heart Measurements LV - Systole [...] RV mid diam 2.91 cm RV long di (more content not included)... Normal [facility] GLUCOSE POCon 08-05-2024 Glucose [Mass/Vol] 228 mg/dL High 70 - 179 mg/dL [facility] Interpretation and review of laboratory results Abnormal [facility] POC Sample Type CAPBL [facility] IONIZED CALCIUM, WHOLE BLOOD on 08-05-2024 ICA 4.72 mg/dL Normal 4.60-5.30 [facility] Comment on above: Performed By: #### S URGP #### [facility] (DEFAULT) [address] [place] [address] ICA 4.69 mg/dL Normal 4.60-5.30 [facility] Comment on above: Performed By: #### S URGP #### [facility] (DEFAULT) [address] [place] [address] 70949 IONIZED CALCIUM, WHOLE BLOOD Ordered By: Jairo Layton on 08-05-2024 Calcium.ionized (Bld) [Moles/Vol] 4.69 mg/dL 4.60 - 5.30 mg/dL [facility] Interpretation and review of laboratory results Normal [facility] MAGNESIUMon 08-05-2024 Magnesium [Mass/Vol] 2.4 mg/dL Normal 1.6-2.6 [facility] Comment on above: Performed By: #### S URGP #### [facility] (DEFAULT) [address] [place] [address] 79865 Magnesium [Mass/Vol] 1.8 mg/dL 1.6 - 2 .6 mg/dL [facility] Magnesium [Mass/Vol] 1.8 mg/dL Normal 1.6-2.6 [facility] Comment on above: Performed By: #### X M #### [facility] (DEFAULT) [address] [place] [address] 63872 No Panel Informationon 08-05 Interpretation and review of laboratory results Normal [facility] PHOSPHATE, INORGANICon 08-05 Phosphorous 3.2 mg/dL Normal 2.2-4.6 [facility] Comment on above: Performed By: #### S URGP #### [facility] (DEFAULT) [address] [place] [address] 74943 Phosphate [Mass/Vol] 2.7 mg/dL 2.2 - 4 .6 mg/dL [facility] Phosphorous 2.7 mg/dL Normal 2.2-4.6 [facility] Comment on above: Performed By: #### X M #### [facility] (DEFAULT) [address] [place] [address] 86857 VON WILLEBRAND FACTOR AGOrde red By: Madhavi Mcelroy on 08-05-2024 Interpretation and review of laboratory results Abnormal [facility] vWf Ag actual/normal IA (PPP) [Relative mass conc] 230 % High 50 - 180 % [facility] CBC,PLATELETSon 08-04-2024 Erythrocyte distribution width (RBC) [Ratio] 13.7 % 10.8 - 14.9 % [facility] Hematocrit (Bld) [Volume fraction] 40.8 % 34.9 - 44.3 % [facility] Hemoglobin (Bld) [Mass/Vol] 12.7 g/dL 11.4 - 15.2 g/dL [facility] Interpretation and review of laboratory results Abnormal [facility] MCH (RBC) [Entitic mass] 28.7 pg 25.9 - 33.9 pg [facility] MCHC (RBC) [Mass/Vol] 31.1 g/dL Low 31.4 - 35.9 g/dL [facility] MCV (RBC) [Entitic vol] 92.1 fL 79.6 - 97.7 fL [facility] Platelet mean volume (Bld) [Entitic vol] 10.8 fL 8.5 - 12.2 fL [facility] Platelets (Bld) [#/Vol] 228 10*3/uL 150 - 393 K/uL [facility] RBC (Bld) [#/Vol] 4.43 10*6/uL [facility] WBC (Bld) [#/Vol] 11.41 10*3/uL High 3.99 - 11.19 K/uL [facility] Hematocrit (Bld) [Volume fraction] 40.8 % Normal 34.9-44.3 [facility] Comment on above: Performed By: #### H [facility] #### [facility] (DEFAULT) [address] [place] [address] Hemoglobin (Bld) [Mass/Vol] 12.7 g/dL Normal 11.4-15.2 [facility] Comment on above: Performed By: #### H [facility] #### [facility] (DEFAULT) [address] [place] [address] 06208 MCV (RBC) [Entitic vol] 92.1 fL Normal 79.6-97.7 O [facility] Comment on above: Performed By: #### H EMOGC #### [facility] (DEFAULT) [address] [place] [address] 67311 Mean Cell Hgb 28.7 pg Normal 25.9-33.9 [facility] Comment on above: Performed By: #### H EMOGC #### [facility] (DEFAULT) [address] [place] [address] 01882 Mean Cell Hgb Conc 31.1 g/dL Low 31.4-35.9 [facility] Comment on above: Performed By: #### H EMOGC #### [facility] (DEFAULT) [address] [place] [address] 70584 Platelet mean volume (Bld) [Entitic vol] 10.8 fL Normal 8.5-12.2 [facility] Comment on above: Performed By: #### H EMOGC #### [facility] (DEFAULT) [address] [address] Platelets (Bld) [#/Vol] 228 10*3/uL Normal 150-393 [facility] Comment on above: Performed By: #### H EMOGC #### [facility] (DEFAULT) [address] [place] [address] 16661 RBC (Bld) [#/Vol] 4.43 10*6/uL Normal 3.91-5.04 [facility] Comment on above: Performed By: #### H EMOGC #### [facility] (DEFAULT) [address] [address] RBC Distribution 13.7 % Normal 10.8-14.9 [facility] Comment on above: Performed By: #### H EMOGC #### [facility] (DEFAULT) [address] [place] [address] 76776 WBC (Bld) [#/Vol] 11.41 10*3/uL High 3.99-11.19 [facility] Comment on above: Performed By: #### H [facility] #### [facility] (DEFAULT) [address] [place] [address] CHEM 7 (LYTES,BUN,CREA,GLUC) Ordered By: Lizette Canseco on 08-04-2024 Anion gap [Moles/Vol] 16 mmol/L 7 - 17 mmol/L [facility] Chloride [Moles/Vol] 109 mmol/L High 98 - 10 8 mmol/L [facility] CO2 [Moles/Vol] 24 mmol/L 21 - 31 mmol/L [facility] Creatinine [Mass/Vol] 1.47 mg/dL High 0.50 - 1.20 mg/dL [facility] eGFR, CKD-EPI, Female 36 Low - PINF [facility] Glucose [Mass/Vol] 181 mg/dL High 70 - 179 mg/dL [facility] Interpretation and review of laboratory results Abnormal [facility] Osmolality Calc [Osmolality] 312 High [facility] Potassium [Moles/Vol] 4 mmol/L 3.5 - 5.0 mmol/L [facility] Sodium [Moles/Vol] 145 mmol/L 135 - 145 mmol/L [facility] Urea nitrogen [Mass/Vol] 26 mg/dL High 7 - 25 mg/dL [facility] Urea nitrogen/Creatinine [Mass ratio] 18 mg/mg [facility] CHEM 7 (LYTES,BUN,CREA,GLUC) on 08-04-2024 Anion gap [Moles/Vol] 16 mmol/L Normal 7-17 [facility] Comment on above: Performed By: #### S URGP #### [facility] (DEFAULT) [address] [place], [place] [address] Chloride [Moles/Vol] 109 mmol/L High 98-108 [facility] Comment on above: Performed By: #### S URGP #### [facility] (DEFAULT) [address] [place] [address] 59877 CO2 [Moles/Vol] 24 mmol/L Normal 21-31 [facility] Comment on above: Performed By: #### S URGP #### [facility] (DEFAULT) [address] [place] [address] 98724 Creatinine [Mass/Vol] 1.47 mg/dL High 0.50-1.20 [facility] Comment on above: Performed By: #### S URGP #### [facility] (DEFAULT) [address] [place] [address] 22844 GFR/1.73 sq M.predicted among non-blacks MDRD (S/P/Bld) [Vol rate/Area] 36 mL/min/{1.73_m2} Low >=60 [facility] Comment on above: Result Comment: Repo rted eGFR is based on the CKD-EPI 2020 equation using creatinine, age, and sex. Performed By: #### S URGP #### [facility] (DEFAULT) [address] [place] [address] 12401 Glucose [Mass/Vol] 181 mg/dL High Nonfastin -179 mg/dL; Fastin-99 [facility] Comment on above: Performed By: #### S URGP #### [facility] (DEFAULT) [address] [place] [address] 64870 Osmolality [Osmolality] 312 mosm/kg High 278-305 [facility] Comment on above: Performed By: #### S URGP #### [facility] (DEFAULT) [address] [place] [address] 29921 Potassium [Moles/Vol] 4.0 mmol/L Normal 3.5-5.0 [facility] Comment on above: Performed By: #### S URGP #### [facility] (DEFAULT) [address] [place] [address] 78501 Sodium [Moles/Vol] 145 mmol/L Normal 135-145 [facility] Comment on above: Performed By: #### S URGP #### [facility] (DEFAULT) [address] [place] [address] Urea nitrogen [Mass/Vol] 26 mg/dL High 7-25 [facility] Comment on above: Performed By: #### S URGP #### [facility] (DEFAULT) [address] [place] [address] Urea nitrogen/Creatinine [Mass ratio] 18 mg/mg Normal [facility] Comment on above: Performed By: #### S URGP #### [facility] (DEFAULT) [address] [place] [address] CT HEAD WITHOUT CONTRASTon 0 08-04-2024 CT HEAD WITHOUT CONTRAST EXAM: CT HEAD WITHOUT CONTRAST, 08/03/2024 9:05 PM COMPARISON: CT HEAD WITHOUT [...] paranasal sinuses are clear. IMPRESSION: Stable exam. Normal [facility] CT Head WO contraston 2024 RADIOLOGY RADIOLOGY [facility] CT Head WO contrastOrdered B y: Chirag Mendenhall on 08-04-2024 [facility] Work Phone: GLUCOSE POCon 08-04-2024 Glucose [Mass/Vol] 227 mg/dL High 70 - 179 mg/dL [facility] Interpretation and review of laboratory results Abnormal [facility] POC [facility] Glucose [Mass/Vol] 235 mg/dL High 70 - 179 mg/dL [facility] Interpretation and review of laboratory results Abnormal [facility] POC Sample Type [facility] Glucose [Mass/Vol] 215 mg/dL High 70 - 179 mg/dL [facility] Interpretation and review of laboratory results Abnormal [facility] POC Sample Type CAPBL [facility] Glucose [Mass/Vol] 178 mg/dL 70 - 179 mg/dL [facility] Glucose [Mass/Vol] 157 mg/dL 70 - 179 mg/dL [facility] Glucose [Mass/Vol] 271 mg/dL High 70 - 179 mg/dL [facility] Glucose [Mass/Vol] 267 mg/dL High 70 - 179 mg/dL [facility] Glucose [Mass/Vol] 246 mg/dL High 70 - 179 mg/dL [facility] IONIZED CALCIUM, WHOLE BLOOD Ordered By: Laura Rodriguez on 08-04-2024 Calcium.ionized (Bld) [Moles/Vol] 4.8 mg/dL 4.60 - 5.30 mg/dL [facility] Interpretation and review of laboratory results Normal [facility] IONIZED CALCIUM, WHOLE BLOOD on 08-04-2024 ICA 4.80 mg/dL Normal 4.60-5.30 [facility] Comment on above: Performed By: #### T YPEC #### [facility] (DEFAULT) [address] [place] [address] 8[address]60 MAGNESIUMon 08-04-2024 Magnesium [Mass/Vol] 1.9 mg/dL 1.6 - 2 .6 mg/dL [facility] Magnesium [Mass/Vol] 1.9 mg/dL Normal 1.6-2.6 [facility] Comment on above: Performed By: #### X M #### [facility] (DEFAULT) [address] [address] No Panel Informationon 08-04 POC Sample Type CAPBL [facility] Interpretation and review of laboratory results Abnormal [facility] Interpretation and review of laboratory results Normal [facility] PHOSPHATE, INORGANICon 08-04 Phosphate [Mass/Vol] 2.8 mg/dL 2.2 - 4 .6 mg/dL [facility] Phosphorous 2.8 mg/dL Normal 2.2-4.6 [facility] [facility] Comment on above: Performed By: #### X M #### [facility] (DEFAULT) [address] [address] SODIUMon 08-04-2024 Interpretation and review of laboratory results Normal [facility] Sodium [Moles/Vol] 142 mmol/L 135 - 145 mmol/L [facility] Sodium [Moles/Vol] 142 mmol/L Normal 135-145 [facility] Comment on above: Order Comment: While on 3% Hypertonic Saline. Performed By: #### S URGP #### [facility] (DEFAULT) [address] [place] [address] Interpretation and review of laboratory results Normal [facility] Sodium [Moles/Vol] 141 mmol/L 135 - 145 mmol/L [facility] Sodium [Moles/Vol] 141 mmol/L Normal 135-145 [facility] Comment on above: Order Comment: 2 Bot tles (1 Set - consists of 1 Aerobic bottle and 1 Anaerobic bottle) - 1st Peripheral Draw For vacutainer method draw: Fill aerobic bottle first, then anaerobic Results may be compromised due to HIGH VOLUME of the BACT\\ALERT bottle EXCEEDING 10mLs, which can be associated with increased contamination. The optimal blood volume is 8-10mLs per aerobic/anaerobic blood culture bottle. Performed By: #### B LDCULT #### [facility] (DEFAULT) [address] [place] [address] Interpretation and review of laboratory results Normal [facility] Sodium [Moles/Vol] 143 mmol/L 135 - 145 mmol/L [facility] Sodium [Moles/Vol] 143 mmol/L Normal 135-145 [facility] Comment on above: Order Comment: While on 3% Hypertonic Saline. Performed By: #### [facility] #### [facility] (DEFAULT) [address] [place] [address] ABORH TYPE RECONFIRMATIONon 08-03-2024 ABO/RH(D) TYPE Negative [facility] ABO/RH(D) TYPE Negative Normal [facility] Comment on above: Performed By: #### T YPEC #### [facility] (DEFAULT) [address] [place] [address] CBC,PLATELETSon 08-03-2024 Erythrocyte distribution width (RBC) [Ratio] 13.2 % 10.8 - 14.9 % [facility] Hematocrit (Bld) [Volume fraction] 42.8 % 34.9 - 44.3 % [facility] Hemoglobin (Bld) [Mass/Vol] 13.5 g/dL 11.4 - 15.2 g/dL [facility] Interpretation and review of laboratory results Normal [facility] MCH (RBC) [Entitic mass] 29.2 pg 25.9 - 33.9 pg [facility] MCHC (RBC) [Mass/Vol] 31.5 g/dL 31.4 - 35.9 g/dL [facility] MCV (RBC) [Entitic vol] 92.4 fL 79.6 - 97.7 fL [facility] Platelet mean volume (Bld) [Entitic vol] 11.2 fL 8.5 - 12.2 fL [facility] Platelets (Bld) [#/Vol] 227 10*3/uL 150 - 393 K/uL [facility] RBC (Bld) [#/Vol] 4.63 10*6/uL [facility] WBC (Bld) [#/Vol] 8.43 10*3/uL 3.99 - 11.19 K/uL [facility] Hematocrit (Bld) [Volume fraction] 42.8 % Normal 34.9-44.3 [facility] Comment on above: Performed By: #### X M #### [facility] (DEFAULT) [address] [address] Hemoglobin (Bld) [Mass/Vol] 13.5 g/dL Normal 11.4-15.2 [facility] Comment on above: Performed By: #### X M #### [facility] (DEFAULT) [address] [address] MCV (RBC) [Entitic vol] 92.4 fL Normal 79.6-97.7 O [facility] Comment on above: Performed By: #### X M #### [facility] (DEFAULT) [address] [address] Mean Cell Hgb 29.2 pg Normal 25.9-33.9 [facility] Comment on above: Performed By: #### X M #### [facility] (DEFAULT) [address] [place] [address] Mean Cell Hgb Conc 31.5 g/dL Normal 31.4-35.9 [facility] Comment on above: Performed By: #### X M #### [facility] (DEFAULT) [address] [address] Platelet mean volume (Bld) [Entitic vol] 11.2 fL Normal 8.5-12.2 [facility] Comment on above: Performed By: #### X M #### [facility] (DEFAULT) [address] [place] [address] Platelets (Bld) [#/Vol] 227 10*3/uL Normal 150-393 [facility] Comment on above: Performed By: #### X M #### [facility] (DEFAULT) [address] [place] [address] RBC (Bld) [#/Vol] 4.63 10*6/uL Normal 3.91-5.04 [facility] Comment on above: Performed By: #### X M #### [facility] (DEFAULT) [address] [place] [address] RBC Distribution 13.2 % Normal 10.8-14.9 [facility] Comment on above: Performed By: #### X M #### [facility] (DEFAULT) [address] [place] [address] WBC (Bld) [#/Vol] 8.43 10*3/uL Normal 3.99-11.19 [facility] Comment on above: Performed By: #### X M #### [facility] (DEFAULT) [address] [place] [address] CHEM 7 (LYTES,BUN,CREA,GLUC) on 08-03-2024 Anion gap [Moles/Vol] 16 mmol/L 7 - 17 mmol/L [facility] Chloride [Moles/Vol] 103 mmol/L 98 - 10 8 mmol/L [facility] CO2 [Moles/Vol] 23 mmol/L 21 - 31 mmol/L [facility] Creatinine [Mass/Vol] 1.35 mg/dL High 0.50 - 1.20 mg/dL [facility] eGFR, CKD-EPI, Female 40 Low - PINF [facility] Glucose [Mass/Vol] 151 mg/dL 70 - 179 mg/dL [facility] Interpretation and review of laboratory results Abnormal [facility] Osmolality Calc [Osmolality] 295 [facility] Potassium [Moles/Vol] 4.3 mmol/L 3.5 - 5.0 mmol/L [facility] Sodium [Moles/Vol] 138 mmol/L 135 - 145 mmol/L [facility] Urea nitrogen [Mass/Vol] 18 mg/dL 7 - 25 mg/dL [facility] Urea nitrogen/Creatinine [Mass ratio] 13 mg/mg [facility] Anion gap [Moles/Vol] 16 mmol/L Normal 7-17 [facility] Comment on above: Performed By: #### S URGP #### [facility] (DEFAULT) [address] [place] [address] Chloride [Moles/Vol] 103 mmol/L Normal 98-108 [facility] Comment on above: Performed By: #### S URGP #### [facility] (DEFAULT) [address] [address] CO2 [Moles/Vol] 23 mmol/L Normal 21-31 [facility] Comment on above: Performed By: #### S URGP #### [facility] (DEFAULT) [address] [place] [address] Creatinine [Mass/Vol] 1.35 mg/dL High 0.50-1.20 [facility] Comment on above: Performed By: #### S URGP #### [facility] (DEFAULT) [address] [place] [address] GFR/1.73 sq M.predicted among non-blacks MDRD (S/P/Bld) [Vol rate/Area] 40 mL/min/{1.73_m2} Low >=60 [facility] Comment on above: Result Comment: Repo rted eGFR is based on the CKD-EPI 2020 equation using creatinine, age, and sex. Performed By: #### S URGP #### [facility] (DEFAULT) [address] [address] Glucose [Mass/Vol] 151 mg/dL Normal Nonfastin -179 mg/dL; Fastin-99 [facility] Comment on above: Performed By: #### S URGP #### [facility] (DEFAULT) [address] [place] [address] Osmolality [Osmolality] 295 mosm/kg Normal 278-305 [facility] Comment on above: Performed By: #### S URGP #### [facility] (DEFAULT) [address] [place] [address] Potassium [Moles/Vol] 4.3 mmol/L Normal 3.5-5.0 [facility] Comment on above: Result Comment: Spec imen slightly hemolyzed. Potassium results may be falsey elevated by more than 0.5 mmol/L. Consider recollection. Performed By: #### S URGP #### [facility] (DEFAULT) [address] [place] [address] Sodium [Moles/Vol] 138 mmol/L Normal 135-145 [facility] Comment on above: Performed By: #### S URGP #### [facility] (DEFAULT) [address] [place] [address] Urea nitrogen [Mass/Vol] 18 mg/dL Normal 7-25 [facility] Comment on above: Performed By: #### S URGP #### [facility] (DEFAULT) [address] [place] [address] Urea nitrogen/Creatinine [Mass ratio] 13 mg/mg Normal [facility] Comment on above: Performed By: #### S URGP #### [facility] (DEFAULT) [address] [place] [address] CHEST WITH CONTRAST VASCU LAR TRAUMAon 08-03-2024 CT CHEST WITH CONTRAST VASCULAR TRAUMA EXAM: CT CHEST WITH CONTRAST VASCULAR TRAUMA, [...] and were reviewed and approved by Kayla Newell, M.D.. CONTRAST: iohexol (OMNIPAQUE) 350 MG/ML injection 1-171 mL; Route of Administration: Intravenous; Dose: 100 mL. FINDINGS: Chest Wall: Degenerative changes of the thoracic spine Mediastinum: Normal, without adenopathy Fabby: Normal, without adenopathy Pleural Spaces: Normal, without thickening/effusion or pneumothorax Lung Parenchyma: Expiratory acquisition of images. Clear except for mild bibasilar atelectasis. Pericardium: Normal, without thickening/effusion -------- Atria: Normal, without thrombus Right Ventricle: Normal Left Ventricle: Normal Coronary Arteries: Multivessel coronary calcifications. Valves: Normal Pulmonary Arteries: Normal -------- Thoracic Aorta: No aneurysmal dilatation or dissection. Arch Branches: Normal Please refer to concurrent CT abdomen and pelvis for full description of the intra-abdominal findings. IMPRESSION: No acute traumatic findings within the chest. I personally viewed and interpreted these images and I have reviewed and approved this report. Normal [facility] CT Cervical spine WO contras ton 08-03-2024 RADIOLOGY RADIOLOGY [facility] CT Cervical spine WO contras tOrdered By: Alissa Chun on 08-03-2024 [facility] Work Phone: CT Chest W contrast Seth RADIOLOGY RADIOLOGY [facility] CT Chest W contrast IVOrdere d By: Kayla Newell on 08-03-2024 [facility] Work Phone: CT HEAD WITHOUT CONTRASTon 0 08-03-2024 CT HEAD WITHOUT CONTRAST EXAM: CT HEAD WITHOUT CONTRAST, 08/03/2024 9:36 AM COMPARISON: MRI from earlier [...] stable since the MRI from earlier today Normal [facility] CT Head WO contraston 2024 Radiology Study observation (narrative) [facility] RADIOLOGY RADIOLOGY [facility] Radiology Study observation (narrative) [facility] CT ORBITS WITHOUT CONTRASTon 08-03-2024 CT ORBITS WITHOUT CONTRAST EXAM: CT ORBITS WITHOUT CONTRAST, 08/02/2024 22:54 PM COMPARISON: No priors [...] right basal ganglia hyperdensity concerning for hemorrhage. Normal [facility] CT Orbit WO contraston 08-03 RADIOLOGY RADIOLOGY [facility] CT SPINE CERVICAL WITHOUT CO NTRASTon 08-03-2024 CT SPINE CERVICAL WITHOUT CONTRAST EXAM: CT SPINE CERVICAL WITHOUT CONTRAST, 08/02/2024 22:54 PM COMPARISON: No priors [...] above. No evidence of acute fractures identified Normal [facility] EXTRA MICROon 08-03-2024 [facility] GLUCOSE POCon 08-03-2024 Glucose [Mass/Vol] 161 mg/dL 70 - 179 mg/dL [facility] POC Sample Type CAPBL [facility] IONIZED CALCIUM, WHOLE BLOOD Ordered By: Alejandra Ness on 08-03-2024 Calcium.ionized (Bld) [Moles/Vol] 4.24 mg/dL Low 4.60 - 5.30 mg/dL [facility] Interpretation and review of laboratory results Abnormal [facility] IONIZED CALCIUM, WHOLE BLOOD on 08-03-2024 ICA 4.24 mg/dL Low 4.60-5.30 [facility] Comment on above: Performed By: #### H [facility] #### [facility] (DEFAULT) [address] [place] [address] MAGNESIUMon 08-03-2024 Magnesium [Mass/Vol] 2.1 mg/dL 1.6 - 2 .6 mg/dL [facility] Magnesium [Mass/Vol] 2.1 mg/dL Normal 1.6-2.6 [facility] Comment on above: Performed By: #### S URGP #### [facility] (DEFAULT) [address] [place] [address] MR Brain WO contraston 08-03 [facility] Study observation (narrative) [facility] MR Cervical spine WO contras ton 08-03-2024 RADIOLOGY RADIOLOGY [facility] Radiology Study observation (narrative) [facility] MR Cervical spine WO contras tOrdered By: Kuldeep Tavares on 08-03-2024 [facility] Work Phone: MRI BRAIN WITHOUT CONTRASTon 08-03-2024 MRI BRAIN WITHOUT CONTRAST EXAM: MRI BRAIN WITHOUT CONTRAST, 08/03/2024 04:14 AM COMPARISON: No priors available [...] 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 Normal [facility] MRI SPINE CERVICAL WITHOUT C ONTRASTon 08-03-2024 MRI SPINE CERVICAL WITHOUT CONTRAST EXAM: MRI SPINE CERVICAL WITHOUT CONTRAST, 08/03/2024 04:14 AM COMPARISON: CT SPINE [...] I have reviewed and approved this report. Normal [facility] NT-PRO B-TYPE NATRIURETIC PE PTIDEon 08-03-2024 Interpretation and review of laboratory results Abnormal [facility] Natriuretic peptide.B prohormone N-Terminal IA [Mass/Vol] 1115 pg/mL High NINF - 540 pg/mL [facility] No Panel Informationon 08-03 RADIOLOGY RADIOLOGY [facility] Interpretation and review of laboratory results Normal [facility] No Panel InformationOrdered By: Richard Sánchez on 08-03-2024 [facility] Work Phone: PHOSPHATE, INORGANICon 08-03 Phosphate [Mass/Vol] 3.5 mg/dL 2.2 - 4 .6 mg/dL [facility] Phosphorous 3.5 mg/dL Normal 2.2-4.6 [facility] Comment on above: Performed By: #### S URGP #### [facility] (DEFAULT) [address] [place] [address] SCREEN: MRSA/MSSAOrdered By: Gail Collado on 08-03-2024 Interpretation and review of laboratory results Normal [facility] Methicillin Resistant S. Aureus By Pcr Negative Negative [facility] Staphylococcus Aureus By Pcr Negative Negative [facility] SODIUMon 08-03-2024 Interpretation and review of laboratory results Normal [facility] Sodium [Moles/Vol] 139 mmol/L 135 - 145 mmol/L [facility] Sodium [Moles/Vol] 139 mmol/L Normal 135-145 [facility] Comment on above: Order Comment: While on 3% Hypertonic Saline. Performed By: #### N AO ####[facility] (DEFAULT)[address] [place] [address] Interpretation and review of laboratory results Abnormal [facility] Sodium [Moles/Vol] 134 mmol/L Low 135 - 145 mmol/L [facility] Sodium [Moles/Vol] 134 mmol/L Low 135-145 [facility] Comment on above: Order Comment: While on 3% Hypertonic Saline. Performed By: #### H EMOGC #### [facility] (DEFAULT) [address] [place] [address] XR ABDOMEN 1 VIEW PORTABLEon 08-03-2024 XR ABDOMEN 1 VIEW PORTABLE EXAM: XR ABDOMEN 1 VIEW PORTABLE, 08/03/2024 13:51 PM COMPARISON: CT ABDOMEN/PELVIS WITH CONTRAST VASCULAR TRAUMA August 02, 2024 CLINICAL INDICATIONS: DHT placement FINDINGS: Tubes: Enteric tube terminates in the expected region of the proximal second portion of the duodenum. Bowel gas pattern: No significantly dilated bowel. No visible free air. Abnormal calcifications/Radiopac ities: Cholelithiasis. Bones: No acute abnormality. Other findings: None. IMPRESSION: Enteric tube terminates in the expected region of the proximal second portion of the duodenum. Normal [facility] XR Abdomen Single viewon RADIOLOGY RADIOLOGY [facility] Radiology Study observation (narrative) [facility] XR Abdomen Single viewOrdere d By: Huey Gibson on 08-03-2024 [facility] XR ELBOW RIGHT 2 VIEWSon XR ELBOW RIGHT 2 VIEWS EXAM: XR ELBOW RI GHT 2 VIEWS, XR HUMERUS RIGHT 2+ VIEWS, XR WRIST RIGHT 3+ VIEWS, 08/02/2024 23:24 PM (accession [id number]), 08/02/2024 23:24 PM (accession [id number]), 08/02/2024 23:23 PM (accession [id number]) COMPARISON: No prior studies available for comparison. [...] or dislocation. IMPRESSION: No acute osseous abnormality. Normal [facility] XR HUMERUS RIGHT 2+ VIEWSon 08-03-2024 XR HUMERUS RIGHT 2+ VIEWS EXAM: XR ELBOW RIGHT 2 VIEWS, XR HUMERUS RIGHT 2+ VIEWS, XR WRIST RIGHT 3+ VIEWS, 08/02/2024 23:24 PM (accession [id number]), 08/02/2024 23:24 PM (accession [id number]), 08/02/2024 23:23 PM (accession [id number]) COMPARISON: No prior studies available for comparison. [...] or dislocation. IMPRESSION: No acute osseous abnormality. Normal [facility] XR WRIST RIGHT 3+ VIEWSon XR WRIST RIGHT 3+ VIEWS EXAM: XR ELBOW R IGHT 2 VIEWS, XR HUMERUS RIGHT 2+ VIEWS, XR WRIST RIGHT 3+ VIEWS, 08/02/2024 23:24 PM (accession [id number]), 08/02/2024 23:24 PM (accession [id number]), 08/02/2024 23:23 PM (accession [id number]) COMPARISON: No prior studies available for comparison. [...] or dislocation. IMPRESSION: No acute osseous abnormality. [facility] 12 Lead EKGon 08-02-2024 12 Lead EKG [facility] [address] [place] [address] 12 Lead EKG 08/02/24 1309 MR#: [id number] Acct: [id number] Name: LINDSAY ACUNA Rep #: [id number] : 1945 78 From: Mj Benavides MD Attending Dr: Status: DEP ER Ordering Dr: Pieter Morgan MD Date: 08/02/24 Location: ED Sex: F C Admitted: Test Reason : STROKE Blood Pressure : */* mmHG Vent. Rate : 96 BPM Atrial Rate : * BPM P-R Int : * ms QRS Dur : 82 ms QT Int : 366 ms P-R-T Axes : * 74 184 degrees QTcB Int : 462 ms Atrial fibrillation Nonspecific ST and T wave abnormality Abnormal ECG Confirmed by MAKAYLA LAWSON, MJ ([id number]), video editor NAIMA BEARDEN ([id number]) on 08/05/2024 6:47:07 AM Referred By: Confirmed By: MJ BENAVIDES MD 08/05/24 0647 Date Mj Benavides MD CC: Dr. Pieter Morgan MD; Dr. Kameron Caruso MD Signed Normal [facility] Absolute lymphocyte countOrd ered By: Pieter Morgan on 08-02-2024 Lymphocytes Auto (Unsp spec) [#/Vol] 1.56 10*3/uL 0.83-4.51 [facility] Absolute neutrophil countOrd ered By: Pieter Morgan on 08-02-2024 Neutrophils (Bld) [#/Vol] 6.2 10*3/uL 2.0-7.7 [facility] Activated partial thrombopla stin time (aPTT) in platelet poor plasma by coagulation aOrdered By: Pieter Morgan on 08-02-2024 aPTT Coag (PPP) [Time] 28.4 s 24.1-36.2 [facility] Anion gap in Serum or Plasma Ordered By: Pieter Morgan on 08-02-2024 Anion gap [Moles/Vol] 12 mmol/L 5-15 [facility] Automated lymphocyte count a s percentage of total leukocytesOrdered By: Pieter Morgan on 08-02-2024 Lymphocytes/100 WBC Auto (Unsp spec) 17.9 % Low [facility] BUN/creatinine ratioOrdered By: Pieter Morgan on 08-02-2024 Urea nitrogen/Creatinine [Mass ratio] 11.6 mg/mg 03-03 [facility] Basic Metabolic Profile (BMP )on 08-02-2024 BUN/CRE 11.6 RATIO Normal 03-03 [facility] Comment on above: Performed By: #### L 300.4310, L501.4021, L300.3900, L500.2500, L100.0100 #### [facility] [address] [place], [address] Calcium [Mass/Vol] 9.0 mg/dL Normal 7.6-11.0 [facility] Comment on above: Performed By: #### L 300.4310, L501.4021, L300.3900, L500.2500, L100.0100 #### [facility] [address] [place], [address] Chloride [Moles/Vol] 98 mmol/L Normal 98-108 [facility] Comment on above: Performed By: #### L 300.4310, L501.4021, L300.3900, L500.2500, L100.0100 #### [facility] [address] [place], [address] CO2 [Moles/Vol] 22.0 mmol/L Normal 21.0-32.0 [facility] Comment on above: Performed By: #### L 300.4310, L501.4021, L300.3900, L500.2500, L100.0100 #### [facility] [address] [place], [address] Creatinine [Mass/Vol] 1.74 mg/dL High 0.70-1.20 [facility] Comment on above: Performed By: #### L 300.4310, L501.4021, L300.3900, L500.2500, L100.0100 #### [facility] [address] [place], [address] ECRCL 27.14 ml/min Low 50-250 [facility] Comment on above: Performed By: #### L 300.4310, L501.4021, L300.3900, L500.2500, L100.0100 #### [facility] [address] [place], [address] GAP 12 Normal 5-15 [facility] Comment on above: Performed By: #### L 300.4310, L501.4021, L300.3900, L500.2500, L100.0100 #### [facility] [address] [place], [address] GFR/1.73 sq M.predicted among non-blacks MDRD (S/P/Bld) [Vol rate/Area] 29 mL/min/{1.73_m2} Low >60 [facility] Comment on above: Result Comment: mL/m in/1.73m2 CKD-EPI Creatinine Equation (2020) Performed By: #### L 300.4310, L501.4021, L300.3900, L500.2500, L100.0100 #### [facility] [address] [place], [address] Glucose [Mass/Vol] 235 mg/dL High 70-99 [facility] Comment on above: Performed By: #### L 300.4310, L501.4021, L300.3900, L500.2500, L100.0100 #### [facility] [address] [place], [address] Potassium [Moles/Vol] 4.2 mmol/L Normal 3.3-5.1 [facility] Comment on above: Performed By: #### L 300.4310, L501.4021, L300.3900, L500.2500, L100.0100 #### [facility] [address] [place], [address] Sodium [Moles/Vol] 132 mmol/L Low 133-145 [facility] Comment on above: Performed By: #### L 300.4310, L501.4021, L300.3900, L500.2500, L100.0100 #### [facility] [address] [place], [address] Urea nitrogen [Mass/Vol] 20 mg/dL High 4-19 [facility] Comment on above: Performed By: #### L 300.4310, L501.4021, L300.3900, L500.2500, L100.0100 #### [facility] [address] [place], [address] Basophil percentageOrdered B y: Pieter Mogran on 08-02-2024 Basophils/100 WBC (Bld) 0.5 % 0-1 [facility] CBC W/Diff, Automatedon 07-14 Absolute Lymph 1.56 X10 3/uL Normal 0.83-4.51 [facility] Comment on above: Performed By: #### L 300.4310, L501.4021, L300.3900, L500.2500, L100.0100 #### [facility] [address] [place], [address] Absolute Neut 6.2 X10 3/uL Normal 2.0-7.7 [facility] Comment on above: Performed By: #### L 300.4310, L501.4021, L300.3900, L500.2500, L100.0100 #### [facility] [address] [place], [address] Basophils/100 WBC (Bld) 0.5 % Normal 0-1 [facility] Comment on above: Performed By: #### L 300.4310, L501.4021, L300.3900, L500.2500, L100.0100 #### [facility] [address] [place], [address] Eosinophils/100 WBC (Bld) 1.0 % Normal 0-5 [facility] Comment on above: Performed By: #### L 300.4310, L501.4021, L300.3900, L500.2500, L100.0100 #### [facility] [address] [place], [address] Erythrocyte distribution width (RBC) [Ratio] 13.3 % Normal 11.6-14.6 [facility] Comment on above: Performed By: #### L 300.4310, L501.4021, L300.3900, L500.2500, L100.0100 #### [facility] [address] [place], [address] Hematocrit (Bld) [Volume fraction] 42.0 % Normal 37-47 [facility] Comment on above: Performed By: #### L 300.4310, L501.4021, L300.3900, L500.2500, L100.0100 #### [facility] [address] [place], [address] Hemoglobin (Bld) [Mass/Vol] 13.8 g/dL Normal 12.0-15.0 [facility] Comment on above: Performed By: #### L 300.4310, L501.4021, L300.3900, L500.2500, L100.0100 #### [facility] [address] [place], [address] IG% 0.300 Normal 0.0-0.9 [facility] Comment on above: Result Comment: IG% - Immature Granulocytes (promyelocytes, myelocytes and metamyelocytes) > 1% indicates that a LEFT SHIFT is Present. Performed By: #### L 300.4310, L501.4021, L300.3900, L500.2500, L100.0100 #### [facility] [address] [place], [address] Lymphocytes/100 WBC (Bld) 17.9 % Low 19-41 [facility] Comment on above: Performed By: #### L 300.4310, L501.4021, L300.3900, L500.2500, L100.0100 #### [facility] [address] [place], [address] MCH (RBC) [Entitic mass] 30.3 pg Normal 27.0-32.0 [facility] Comment on above: Performed By: #### L 300.4310, L501.4021, L300.3900, L500.2500, L100.0100 #### [facility] [address] [place], [address] MCHC (RBC) [Mass/Vol] 32.9 g/dL Normal 32-36 [facility] Comment on above: Performed By: #### L 300.4310, L501.4021, L300.3900, L500.2500, L100.0100 #### [facility] [address] [place], [address] MCV (RBC) [Entitic vol] 92.1 fL Normal 81-99 [facility] Comment on above: Performed By: #### L 300.4310, L501.4021, L300.3900, L500.2500, L100.0100 #### [facility] [address] [place], [address] Monocytes/100 WBC (Bld) 8.9 % Normal 0-10 [facility] Comment on above: Performed By: #### L 300.4310, L501.4021, L300.3900, L500.2500, L100.0100 #### [facility] [address] [place], [address] Neutrophils/100 WBC (Bld) 71.4 % High 47-70 [facility] Comment on above: Performed By: #### L 300.4310, L501.4021, L300.3900, L500.2500, L100.0100 #### [facility] [address] [place], [address] Nucleated RBC (Bld) [#/Vol] 0 10*3/uL Normal 0-5 [facility] Comment on above: Performed By: #### L 300.4310, L501.4021, L300.3900, L500.2500, L100.0100 #### [facility] [address] [place], [address] Platelet mean volume (Bld) [Entitic vol] 10.7 fL Normal 6.2-12.0 [facility] Comment on above: Performed By: #### L 300.4310, L501.4021, L300.3900, L500.2500, L100.0100 #### [facility] [address] [place], [address] Platelets (Bld) [#/Vol] 214 10*3/uL Normal 150-450 [facility] Comment on above: Performed By: #### L 300.4310, L501.4021, L300.3900, L500.2500, L100.0100 #### [facility] [address] [place], [address] RBC (Bld) [#/Vol] 4.56 10*6/uL Normal 4.2-5.4 [facility] Comment on above: Performed By: #### L 300.4310, L501.4021, L300.3900, L500.2500, L100.0100 #### [facility] [address] [place], [address] RDW SD 45.3 fl High 35.1-43.9 [facility] Comment on above: Performed By: #### L 300.4310, L501.4021, L300.3900, L500.2500, L100.0100 #### [facility] [address] [place], [address] WBC (Bld) [#/Vol] 8.7 10*3/uL Normal 4.4-11.0 [facility] Comment on above: Performed By: #### L 300.4310, L501.4021, L300.3900, L500.2500, L100.0100 #### [facility] [address] [place], [address] CBC,PLATELETSon 08-02-2024 Erythrocyte distribution width (RBC) [Ratio] 13.3 % 10.8 - 14.9 % [facility] Hematocrit (Bld) [Volume fraction] 43.8 % 34.9 - 44.3 % [facility] Hemoglobin (Bld) [Mass/Vol] 14 g/dL 11.4 - 15.2 g/dL [facility] Interpretation and review of laboratory results Normal [facility] MCH (RBC) [Entitic mass] 29.4 pg 25.9 - 33.9 pg [facility] MCHC (RBC) [Mass/Vol] 32 g/dL 31.4 - 35.9 g/dL [facility] MCV (RBC) [Entitic vol] 92 fL 79.6 - 97.7 fL [facility] Platelet mean volume (Bld) [Entitic vol] 10.8 fL 8.5 - 12.2 fL [facility] Platelets (Bld) [#/Vol] 245 10*3/uL 150 - 393 K/uL [facility] RBC (Bld) [#/Vol] 4.76 10*6/uL [facility] WBC (Bld) [#/Vol] 8.16 10*3/uL 3.99 - 11.19 K/uL [facility] Hematocrit (Bld) [Volume fraction] 43.8 % Normal 34.9-44.3 [facility] Comment on above: Performed By: #### B LDCULT #### [facility] (DEFAULT) [address] [place] [address] Hemoglobin (Bld) [Mass/Vol] 14.0 g/dL Normal 11.4-15.2 [facility] Comment on above: Performed By: #### B LDCULT #### [facility] (DEFAULT) [address] [place] [address] MCV (RBC) [Entitic vol] 92.0 fL Normal 79.6-97.7 [facility] Comment on above: Performed By: #### B LDCULT #### [facility] (DEFAULT) [address] [place] [address] Mean Cell Hgb 29.4 pg Normal 25.9-33.9 [facility] Comment on above: Performed By: #### B LDCULT #### [facility] (DEFAULT) [address] [place] [address] Mean Cell Hgb Conc 32.0 g/dL Normal 31.4-35.9 [facility] Comment on above: Performed By: #### B LDCULT #### [facility] (DEFAULT) [address] [place] [address] Platelet mean volume (Bld) [Entitic vol] 10.8 fL Normal 8.5-12.2 [facility] Comment on above: Performed By: #### B LDCULT #### [facility] (DEFAULT) [address] [place] [address] Platelets (Bld) [#/Vol] 245 10*3/uL Normal 150-393 [facility] Comment on above: Performed By: #### B LDCULT #### [facility] (DEFAULT) [address] [place] [address] RBC (Bld) [#/Vol] 4.76 10*6/uL Normal 3.91-5.04 [facility] Comment on above: Performed By: #### B LDCULT #### [facility] (DEFAULT) [address] [place] [address] RBC Distribution 13.3 % Normal 10.8-14.9 [facility] Comment on above: Performed By: #### B LDCULT #### [facility] (DEFAULT) [address] [place] [address] WBC (Bld) [#/Vol] 8.16 10*3/uL Normal 3.99-11.19 [facility] Comment on above: Performed By: #### B LDCULT #### [facility] (DEFAULT) [address] [place] [address] CHEM 7 (LYTES,BUN,CREA,GLUC) on 08-02-2024 Anion gap [Moles/Vol] 16 mmol/L 7 - 17 mmol/L [facility] Chloride [Moles/Vol] 105 mmol/L 98 - 10 8 mmol/L [facility] CO2 [Moles/Vol] 22 mmol/L 21 - 31 mmol/L [facility] Creatinine [Mass/Vol] 1.37 mg/dL High 0.50 - 1.20 mg/dL [facility] eGFR, CKD-EPI, Female 39 Low - PINF [facility] Glucose [Mass/Vol] 210 mg/dL High 70 - 179 mg/dL [facility] Osmolality Calc [Osmolality] 299 [facility] Potassium [Moles/Vol] 3.7 mmol/L 3.5 - 5.0 mmol/L [facility] Sodium [Moles/Vol] 139 mmol/L 135 - 145 mmol/L [facility] Urea nitrogen [Mass/Vol] 18 mg/dL 7 - 25 mg/dL [facility] Urea nitrogen/Creatinine [Mass ratio] 13 mg/mg [facility] Anion gap [Moles/Vol] 16 mmol/L Normal 7-17 [facility] Comment on above: Performed By: #### [facility] #### [facility] (DEFAULT) [address] [address] Chloride [Moles/Vol] 105 mmol/L Normal 98-108 [facility] Comment on above: Performed By: #### H EMO #### [facility] (DEFAULT) [address] [address] CO2 [Moles/Vol] 22 mmol/L Normal 21-31 [facility] Comment on above: Performed By: #### H [facility] #### [facility] (DEFAULT) [address] [address] Creatinine [Mass/Vol] 1.37 mg/dL High 0.50-1.20 [facility] Comment on above: Performed By: #### H [facility] #### [facility] (DEFAULT) [address] [place] [address] GFR/1.73 sq M.predicted among non-blacks MDRD (S/P/Bld) [Vol rate/Area] 39 mL/min/{1.73_m2} Low >=60 [facility] Comment on above: Result Comment: Repo rted eGFR is based on the CKD-EPI 2020 equation using creatinine, age, and sex. Performed By: #### H [facility] #### [facility] (DEFAULT) [address] [address] Glucose [Mass/Vol] 210 mg/dL High Nonfastin -179 mg/dL; Fastin-99 [facility] Comment on above: Performed By: #### H EMOGC #### [facility] (DEFAULT) [address] [place] [address] Osmolality [Osmolality] 299 mosm/kg Normal 278-305 [facility] Comment on above: Performed By: #### H EMO #### [facility] (DEFAULT) [address] [address] Potassium [Moles/Vol] 3.7 mmol/L Normal 3.5-5.0 [facility] Comment on above: Performed By: #### H EMOGC #### [facility] (DEFAULT) [address] [place] [address] Sodium [Moles/Vol] 139 mmol/L Normal 135-145 [facility] Comment on above: Performed By: #### H EMOGC #### [facility] (DEFAULT) [address] [place] [address] Urea nitrogen [Mass/Vol] 18 mg/dL Normal 7-25 [facility] Comment on above: Performed By: #### H EMOGC #### [facility] (DEFAULT) [address] [place] [address] Urea nitrogen/Creatinine [Mass ratio] 13 mg/mg Normal [facility] Comment on above: Performed By: #### H EMOGC #### [facility] (DEFAULT) [address] [place] [address] CT ABDOMEN/PELVIS WITH CONTR AST VASCULAR TRAUMAon 08-02-2024 CT ABDOMEN/PELVIS WITH CONTRAST VASCULAR TRAUMA EXAM: CT ABDOMEN/PELVIS WITH CONTRAST VASCULAR TRAUMA, [...] Gastrointestinal: Normal bowel caliber and wall thickness. Peritoneum/retroperiton eum: No ascites. Lymph nodes: No enlarged or [...] trauma grade: None. Kidney trauma grade: None. Normal [facility] CT Abdomen and Pelvis W cont rast Seth 08-02-2024 RADIOLOGY RADIOLOGY [facility] CT Abdomen and Pelvis W cont rast IVOrdered By: Edson Head on 08-02-2024 [facility] Work Phone: CT Cervical spine WO contras ton 08-02-2024 Radiology Study observation (narrative) [facility] CT Orbit WO contraston 08-02 Radiology Study observation (narrative) [facility] Carbon dioxide, total [Moles /volume] in Central venous bloodOrdered By: Pieter Morgan on 08-02-2024 CO2 [Moles/Vol] 22.0 mmol/L 21.0-32.0 [facility] Chloride assayOrdered By: Racheal Morgan on 08-02-2024 Chloride [Moles/Vol] 98 mmol/L 98-108 [facility] Emergency Department Summary on 08-02-2024 Emergency Department Summary [facility] Medical Records Department [address] [place] [address] Emergency Department Summary 08/02/24 MR#: [id number] Acct: [id number] Name: LINDSAY ACUNA Rep #: [id number] : 1945 78 From: Pieter Morgan MD PCP: Dr. Kameron Caruso MD Status:REG ER Location: ED HPI History of Present Illness Chief Complaint: Stroke Alert Informant: patient and EMS Narrative Narrative: Patient presenting from home by EMS as a prehospital stroke alert. Last seen normal 9:15 AM, arrives 12:20 PM approximately. found her lying on the floor about 10 or 20 minutes prior to noon when he came home from work. Patient amnestic about all events since he left for work, but states she thinks she remembers taking her medications this morning. EMS states left-sided weakness resulting in a fall and a minor injury to her left temporal area of her face. Unknown medications per EMS. Prehospital blood pressure and vital signs and BGT noted. Patient confirms she takes Eliquis which is on her list in the EMR. states they returned home from [facility] about 1.5-2 weeks ago, and they both had colds. He is better, but she is "on round 2." [facility] Medical History Paroxysmal atrial fibrillation with RVR Coronary artery disease Essential hypertension Hyperlipidemia Kidney disease Type 2 diabetes mellitus without complication Goiter Diverticulosis Home Medications ???Medication ???Instructions ???Recorded ???Last Taken ???Type apixaban 2.5 mg tablet (Eliquis) 2.5 mg PO BID 07/03/24 Unknown His tory atenolol 50 mg tablet 50 mg PO QDAY 07/03/24 Unknown His tory atorvastatin 80 mg tablet 80 mg PO QHS 07/03/24 Unknown Hist ory doxycycline hyclate 100 mg capsule 100 mg PO BID 07/03/24 Unknown H istory glimepiride 2 mg tablet 2 mg PO QAM 07/03/24 Unknown Histo ry levothyroxine 75 mcg tablet 75 mcg PO 6XW 07/03/24 Unknown His tory metformin 500 mg tablet,extended 1,000 mg PO QDAY 07/03/24 Unknown History release 24 hr oxybutynin chloride 5 mg 5 mg PO QDAY 07/03/24 Unknown Hist ory tablet,extended release 24 hr amoxicillin 500 mg capsule 500 mg PO Q8H 08/02/24 Unknown His tory Allergy/AdvReac Type Severity Reaction Status Date / Time benzocaine Allergy Unknown Rash Verified 08/02/24 12:45 perfume Allergy Unknown Shortness Verified 08/02/24 12:45 of breath Sulfa (Sulfonamide Allergy Unknown Unknown Verified 08/02/24 12:45 Antibiotics) cocaine AdvReac Unknown Inverted T Verified 08/02/24 12:45 waves Family History (Updated 07/03/24 @ 10:19 by Bertha Turpin) Mother Diabetes Hypertension Psychiatric disorder Grandmother Cancer Sister Thyroid disorder Surgical History History of cyst of breast History of History of bilateral cataract extraction History of open reduction and internal fixation (ORIF) procedure History of colonoscopy ( 2021) Social History Smoking Status: Never smoker alcohol intake: never substance use type: does not use ROS ROS ED Constitutional Constitutional ED: Denies chills or fever(s) Eyes Eyes: Denies change in vision or diplopia ENT ENT ED: Denies rhinorrhea or sore throat Cardiovascular Cardiovascular: Denies chest pain or palpitations Respiratory/Chest Respiratory/Chest: Denies cough or dyspnea Gastrointestinal Gastrointestinal: Denies abdominal pain, diarrhea, nausea or vomiting Genitourinary Genitourinary ED: Denies dysuria or hematuria Musculoskeletal Musculoskeletal: Denies back pain or neck pain Integumentary Denies abscess or rash Neurologic Neurologic: Reports weakness; Denies headache(s) EXAM Physical Exam Const Vital Signs: 08/02/24 12:37 08/02/24 12:41 08/02/24 12:46 Temperature 98 F Temperature Source Oral Pulse Rate 99 99 Respiratory Rate 17 16 Blood Pressure 172/99 H 157/86 H Blood Pressure Mean 123 109 Pulse Ox 98 96 Oxygen Delivery Method Room Air Room Air Room Air 08/02/24 12:54 Temperature Temperature Source Pulse Rate 98 Respiratory Rate 18 Blood Pressure 163/97 H Blood Pressure Mean 119 Pulse Ox 97 Oxygen Delivery Method Room Air Positive well nourished and well developed General Appearance ED: well developed and NAD HEENT Reports moist mucous membranes HEENT Narrative: Contusion/abrasion left temporal forehead, just left of the orbit. Zygomatic arch intact and nontender without crepitance or deformity. No hematoma. No other signs of HEENT trauma. normocephalic and trauma Eyes PERRL and EOMs intact bilaterally Neck full ROM and supple Resp normal respir (more content not included)... Normal [facility] Eosinophil percentageOrdered By: Pieter Morgan on 08-02-2024 Eosinophils/100 WBC (Bld) 1.0 % 0-5 [facility] Erythrocyte distribution wid th ratioOrdered By: Pieter Morgan on 08-02-2024 Erythrocyte distribution width (RBC) [Ratio] 13.3 % 11.6-14.6 [facility] Erythrocyte distribution wid th standard deviationOrdered By: Pieter Morgan on 08-02-2024 Erythrocyte distribution width (RBC) [Entitic vol] 45.3 fL High 35.1-43.9 [facility] Erythrocyte distribution width (RBC) [Ratio] 45.3 fl High 35.1-43.9 [facility] Estimation of creatinine mackenzie aranceOrdered By: Pieter Morgan on 08-02-2024 Estimated Creatinine Clearance Calc 27.14 ml/min Low 50-250 [facility] GFR/1.73 sq M.predicted lana g non-blacks MDRD (S/P/Bld) [Vol rate/Area]Ordered By: Pieter Morgan on 08-02-2024 Estimated GFR (MDRD) Non-Af Amer 29 Low >60 [facility] Comment on above: mL/min/1.73m2 CKD-EP I Creatinine Equation (2020) Glomerular filtration rate ( GFR) estimation/1.73 sq m using serum, plasma, or whole bOrdered By: Pieter Morgan on 08-02-2024 GFR/1.73 sq M.predicted among non-blacks MDRD (S/P/Bld) [Vol rate/Area] 29 mL/min/{1.73_m2} Low >60 [facility] Comment on above: mL/min/1.73m2 CKD-EP I Creatinine Equation (2020) HEMOGLOBIN A1Con 08-02-2024 Average glucose Estimated from glycated hemoglobin (Bld) [Mass/Vol] 177 mg/dL [facility] HbA1c (Bld) [Mass fraction] 7.8 % High 4.7 - 5.6 % [facility] Interpretation and review of laboratory results [facility] Glucose [Mass/Vol] 177 mg/dL Normal [facility] Comment on above: Performed By: #### H EMOGC #### [facility] (DEFAULT) [address] [place] [address] Hemoglobin A1C HPLC 7.8 % High 4.7-5.6 [facility] Comment on above: Performed By: #### H EMOGC #### [facility] (DEFAULT) [address] [place] [address] HEPATIC FUNCTION PANELon Albumin [Mass/Vol] 3.5 g/dL 3.5 - 5.0 g/dL [facility] ALP [Catalytic activity/Vol] 117 U/L 32 - 126 U/L [facility] ALT [Catalytic activity/Vol] 10 U/L 9 - 48 U/L [facility] AST [Catalytic activity/Vol] 17 U/L 10 - 39 U/L [facility] Bilirubin [Mass/Vol] 0.6 mg/dL NINF - 1.5 mg/dL [facility] Bilirubin.direct [Mass/Vol] 0.1 mg/dL NINF - 0.3 mg/dL [facility] Protein [Mass/Vol] 6.3 g/dL Low 6.4 - 8.3 g/dL [facility] Albumin [Mass/Vol] 3.5 g/dL Normal 3.5-5.0 [facility] Comment on above: Performed By: #### H EMO #### [facility] (DEFAULT) [address] [place] [address] ALP [Catalytic activity/Vol] 117 U/L Normal 32-126 [facility] Comment on above: Performed By: #### H EMOGC #### [facility] (DEFAULT) [address] [place] [address] ALT [Catalytic activity/Vol] 10 U/L Normal 9-48 [facility] Comment on above: Performed By: #### H EMOGC #### [facility] (DEFAULT) [address] [place] [address] AST [Catalytic activity/Vol] 17 U/L Normal 10-39 [facility] Comment on above: Performed By: #### H EMOGC #### [facility] (DEFAULT) [address] [place] [address] Bilirubin [Mass/Vol] 0.6 mg/dL Normal <1.5 [facility] Comment on above: Performed By: #### H EMOGC #### [facility] (DEFAULT) [address] [place] [address] Bilirubin.indirect [Mass/Vol] 0.1 mg/dL Normal <0.3 [facility] Comment on above: Performed By: #### H EMOGC #### [facility] (DEFAULT) [address] [place] [address] Protein [Mass/Vol] 6.3 g/dL Low 6.4-8.3 [facility] Comment on above: Performed By: #### [facility] #### [facility] (DEFAULT) [address] [place] [address] HIGH SENSITIVITY TROPONIN I - SINGLE ORDERon 08-02-2024 Interpretation and review of laboratory results Normal [facility] Troponin I.cardiac High sensitivity method [Mass/Vol] 9 ng/L NINF - 34 ng/L [facility] hs-Troponin I 9 ng/L Normal <34 [facility] Comment on above: Order Comment: 2 Bot tles (1 Set - consists of 1 Aerobic bottle and 1 Anaerobic bottle) - 1st Peripheral Draw For vacutainer method draw: Fill aerobic bottle first, then anaerobic Results may be compromised due to HIGH VOLUME of the BACT\\ALERT bottle EXCEEDING 10mLs, which can be associated with increased contamination. The optimal blood volume is 8-10mLs per aerobic/anaerobic blood culture bottle. Performed By: #### B LDCULT #### [facility] (DEFAULT) [address] [place] [address] Hematocrit Auto (Bld) [Volum e fraction]Ordered By: Pieter Cathy on 08-02-2024 Hematocrit (Bld) [Volume fraction] 42.0 % 37-47 [facility] Hemoglobin measurementOrdere d By: Pieter Masonone on 08-02-2024 Hemoglobin (Bld) [Mass/Vol] 13.8 g/dL 12.0-15.0 [facility] Immature granulocytes/100 WB C Auto (Bld)Ordered By: Pieter Cathy on 08-02-2024 Immature granulocytes/100 WBC (Bld) 0.300 % 0.0-0.9 [facility] Comment on above: IG% - Immature Granu locytes (promyelocytes, myelocytes and metamyelocytes) > 1% indicates that a LEFT SHIFT is Present. Influenza virus A and B and SARS-CoV-2 (COVID-19) and Respiratory syncytial virus RNAOrdered By: Pieter Cathy on 08-02-2024 SARS-CoV-2 (COVID-19) RNA CHUCKY+probe Ql (Unsp spec) [facility] International normalized rat io (INR) calculationOrdered By: Pieter Masonone on 08-02-2024 INR Coag (Bld) [Relative time] 1.1 {INR} [facility] L499.0042on 08-02-2024 Trop T High Sen Normal <=14 [facility] Comment on above: Result Comment: Canc elled via OM: Order cancelled - Patient discharged Performed By: #### L 499.0042 ####[facility] [address] [place], [address] L499.0043on 08-02-2024 Trop T High Sen Normal <=14 [facility] Comment on above: Result Comment: Canc elled via OM: Order cancelled - Patient discharged Performed By: #### L 499.0043 ####[facility] [address] [place], [address] L501.4021on 08-02-2024 Trop T High Sen 38 ng/L High <=14 [facility] Comment on above: Performed By: #### L 300.4310, L501.4021, L300.3900, L500.2500, L100.0100 ####[facility] [address] [place], [address] LIPID PANEL WITH REFLEX TO Jaiden CONRAD LDLon 08-02-2024 Cholesterol [Mass/Vol] 141 mg/dL NINF - 200 mg/dL [facility] Cholesterol in HDL [Mass/Vol] 38 mg/dL Low 40 - PINF mg/dL [facility] Cholesterol in LDL [Mass/Vol] 84 mg/dL 0 - 99 mg/dL [facility] Cholesterol non HDL [Mass/Vol] 103 mg/dL NINF - 130 mg/dL [facility] Cholesterol.total/Alta sterol in HDL [Mass ratio] 3.7 {ratio} NINF - 4.5 [facility] Triglyceride [Mass/Vol] 96 mg/dL NINF - 150 mg/dL [facility] Calculated LDL Cholesterol 84 mg/dL Normal 0-99 [facility] Comment on above: Result Comment: [<10 0 mg/dL: Optimal] [100-129 mg/dL: Near Optimal] [130-159 mg/dL: Borderline High] [160-189 mg/dL: High] [>189 mg/dL: Very High] Performed By: #### [facility] [place] [facility] [facility] [place] #### [facility] (DEFAULT) [address] [address] Cholesterol [Mass/Vol] 141 mg/dL Normal <200 [facility] Comment on above: Result Comment: [<20 0 mg/dL: Desirable] [200-239 mg/dL: Borderline High] [>239 mg/dL: High] Performed By: #### H [facility] #### [facility] (DEFAULT) [address] [address] Cholesterol in HDL [Mass/Vol] 38 mg/dL Low >=40 [facility] Comment on above: Result Comment: [<40 mg/dL: Low (High Risk)] [>59 mg/dL: High (Low Risk)] Performed By: #### H [facility] #### [facility] [address] [place] [address] Non HDL Cholesterol 103 mg/dL Normal <130 [facility] Comment on above: Performed By: #### H EMO #### [facility] (DEFAULT) [address] [place] [address] Total Cholesterol/HDL Ratio 3.7 Normal <4.5 [facility] Comment on above: Performed By: #### H [facility] #### [facility] (DEFAULT) [address] [place] [address] Triglyceride [Mass/Vol] 96 mg/dL Normal <150 O [facility] Comment on above: Result Comment: [<15 0 mg/dL: Desirable] [150-199 mg/dL: Borderline] [200-499 mg/dL: High] [>500 mg/dL: Very High] Performed By: #### H [facility] #### [facility] (DEFAULT) [address] [place] [address] Lymphocytes Auto (Unsp spec) [#/Vol]Ordered By: Pieter Morgan on 08-02-2024 Lymphocytes (Bld) [#/Vol] 1.56 10*3/uL 0.83-4.51 [facility] Lymphocytes/100 WBC Auto (Un sp spec)Ordered By: Pieter Morgan on 08-02-2024 Lymphocytes/100 WBC (Bld) 17.9 % Low 19-41 [facility] M100.678on 08-02-2024 M100.678 Pending SARS-CoV-2 (COVID 19) Negative INFLUENZA A Negative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 [place] : 237 degrees ATRIAL FIBRILLATION WITH RAPID VENTRICULAR RESPONSE ST & INFEROLATERAL T WAVE ABNORMALITY ABNORMAL ECG Confirmed by MD OBRIEN GREGORY () on 06/03/2024 8:39:22 AM NAME : LINDSAY ACUNA PID : [id number] : 1945 Gender : Female Race : ORD : Procedure Date : May 31 2024 09:21:47 Edit Date : Jun 03 2024 08:39:24 Diagnosis: ATRIAL FIBRILLATION WITH RAPID VENTRICULAR RESPONSE ST & INFEROLATERAL T WAVE ABNORMALITY ABNORMAL ECG Confirmed by MD OBRIEN GREGORY () on 06/03/2024 8:39:22 AM Test Reason : Location : 136 : [facility] Overread By : MD OBRIEN GREGORY Edited By : MD OBRIEN GREGORY Referred By : Kameron Caruso Acquired by : Adenike Walton MA, Normal [facility] ALBUMIN/CREATININE RATIO, UR INEon 05-23-2024 Albumin DL <= 20 mg/L (U) [Mass/Vol] 16.3 mg/L Normal [facility] Comment on above: Order Comment: Speci men Type: URINE SPECIMENOrdering Facility: [facility] Address: [address] [place] [address] Performed By: #### U ACR ####[place] [facility] [id number] [address] [place] [facility] Albumin/Creatinine (U) [Mass ratio] 16 mg/g Normal <30 [facility] Comment on above: Order Comment: Speci men Type: URINE SPECIMENOrdering Facility: [facility] Address: [address] [place] [address] Result Comment: Adul t Male and Female Nephrotic Criteria: <30 mg/g is considered normal to mildly increased 30-300 mg/g is considered moderately increased >300 mg/g is considered severely increased KDIGO. (2013). KDIGO 2012 Clinical Practice Guideline for the Evaluation and Management of Chronic Kidney Disease. Official Journal of the International Society of Nephrology, 3(1), 1-150. Performed By: #### U ACR ####[place] [facility] [id number] [place] [address] [place] Creatinine (U) [Mass/Vol] 102.1 mg/dL Normal 20.0-300.0 [facility] Comment on above: Order Comment: Speci men Type: URINE SPECIMENOrdering Facility: [facility] Address: [address] [place] [address] Performed By: #### U ACR ####[place] [facility] [id number] [place] [id number] [place] Comprehensive metabolic 2000 panelon 05-23-2024 Albumin [Mass/Vol] 4.2 g/dL Normal 3.9-4.9 [facility] Comment on above: Order Comment: Speci men Type: BLOOD SPECIMENOrdering Facility: [facility] Address: [address] [place] [address] Performed By: #### 2 4331-1, 36285-1, 3015-3 ####[place] [facility] [id number] [place] [address] [place] ALP [Catalytic activity/Vol] 146 U/L High 34-123 [facility] Comment on above: Order Comment: Speci men Type: BLOOD SPECIMENOrdering Facility: [facility] Address: [address] [place] [address] Performed By: #### 2 4331-1, 81055-0, 3015-3 ####[place] [facility] [id number] [place] [address] [place] ALT [Catalytic activity/Vol] 17 U/L Normal 7-38 [facility] Comment on above: Order Comment: Speci men Type: BLOOD SPECIMENOrdering Facility: [facility] Address: [address] [place] [address] Performed By: #### 2 4331-1, 85253-7, 3015-3 ####[place] [facility] [id number] [place] [address] [place] Anion gap [Moles/Vol] 9 mmol/L Normal 8-[address] [facility] Comment on above: Order Comment: Speci men Type: BLOOD SPECIMENOrdering Facility: [facility] Address: [address] [place] [address] Performed By: #### 2 4331-1, 02458-3, 6-3 ####[place] [facility] [id number] [place] [id number] [place] AST [Catalytic activity/Vol] 16 U/L Normal 13-35 [facility] Comment on above: Order Comment: Speci men Type: BLOOD SPECIMENOrdering Facility: [facility] Address: [address] [place], [place] [address] Performed By: #### 2 4331-1, 96099-3, 3015-3 ####[place] [facility] [id number] [address] [address] [place] Bilirubin [Mass/Vol] 0.4 mg/dL Normal 0.2-1.3 [facility] Comment on above: Order Comment: Speci men Type: BLOOD SPECIMENOrdering Facility: [facility] Address: [address] [place] [address] Performed By: #### 2 4331-1, , 3 ####[place] [facility] [id number] [place] [id number] [place] Calcium [Mass/Vol] 9.6 mg/dL Normal 8.5-10.2 [facility] Comment on above: Order Comment: Speci men Type: BLOOD SPECIMENOrdering Facility: [facility] Address: [address] [place] [address] Performed By: #### 2 4331-1, , 3 ####[place] [facility] [id number] [place] [id number] [place] Chloride [Moles/Vol] 104 mmol/L Normal 98-107 [facility] Comment on above: Order Comment: Speci men Type: BLOOD SPECIMENOrdering Facility: [facility] Address: [address] [place] [address] Performed By: #### 2 4331-1, , 3 ####[place] [facility] [id number] [address] [address] [place] CO2 [Moles/Vol] 28 mmol/L Normal 22-30 [facility] Comment on above: Order Comment: Speci men Type: BLOOD SPECIMENOrdering Facility: [facility] Address: [address] [place], [place] [address] Performed By: #### 2 4331-1, 25832-7, 3015-3 ####[place] [facility] [id number] [address] [address] [place] Creatinine [Mass/Vol] 1.31 mg/dL High 0.58-0.[address] [facility] Comment on above: Order Comment: Specelizabeth borjas Type: BLOOD SPECIMENOrdering Facility: [facility] Address: [address] [place] [address] Performed By: #### 2 4331-1, 95448-7, 6-3 ####[place] [facility] [id number] [place] [address] [place] Creatinine and Glomerular filtration rate.predicted panel (S/P/Bld) 42 mL/min/1.73m??? Low >=60 [facility] Comment on above: Order Comment: Deana borjas Type: BLOOD SPECIMENOrdering Facility: [facility] Address: [address] [place] [address] Result Comment: Nancy mated Glomerular Filtration Rate (eGFR) is calculated using the 2020 CKD-EPI creatinine equation. This equation utilizes serum creatinine, sex, and age as parameters. The creatinine assay has traceable calibration to isotope dilution-mass spectrometry. Refer to KDIGO guidelines for clinical interpretation. In patients with unstable renal function, e.g. those with acute kidney injury, the eGFR may not accurately reflect actual GFR. Performed By: #### 2 4331-1, 94215-8, 6-3 ####[place] [facility] [id number] [place] [id number] [place] Glucose [Mass/Vol] 105 mg/dL High 74-99 [facility] Comment on above: Order Comment: Speci suad Type: BLOOD SPECIMENOrdering Facility: [facility] Address: [address] [place] [address] Result Comment: The [place] Diabetes Association (ADA) provides guidance for cutoff [...] Standards of Medical Care in Diabetes 2016, [place] Diabetes Association. Diabetes Care. 2016.39(Suppl 1). Performed By: #### 2 4331-1, 40763-4, 3015-3 ####[place] [facility] [id number] [address] [address] [place] Potassium [Moles/Vol] 4.7 mmol/L Normal 3.7-5.[address] [facility] Comment on above: Order Comment: Speci men Type: BLOOD SPECIMENOrdering Facility: [facility] Address: [address] [place] [address] Performed By: #### 2 4331-1, , 3 ####[place] [facility] [id number] [address] [address] [place] Protein [Mass/Vol] 7.1 g/dL Normal 6.3-8.0 [facility] Comment on above: Order Comment: Nici suad Type: BLOOD SPECIMENOrdering Facility: [facility] Address: [address] [place] [address] Performed By: #### 2 4331-1, , 3 ####[place] [facility] [id number] [address] [address] [place] Sodium [Moles/Vol] 141 mmol/L Normal 136-144 [facility] Comment on above: Order Comment: Speci men Type: BLOOD SPECIMENOrdering Facility: [facility] Address: [address] [place] [address] Performed By: #### 2 4331-1, 57419-4, 3015-3 ####[place] [facility] [id number] [address] [address] [place] Urea nitrogen [Mass/Vol] 18 mg/dL Normal 7-21 [facility] Comment on above: Order Comment: Deana borjas Type: BLOOD SPECIMENOrdering Facility: [facility] Address: [address] [place] [address] Performed By: #### 2 4331-1, 93134-9, 3016-3 ####[place] [facility] [id number] [place] [address] [place] HbA1c (Bld)on 05-23-2024 Average glucose Estimated from glycated hemoglobin (Bld) [Mass/Vol] 154 mg/dL Normal [facility] Comment on above: Order Comment: Deana borjas Type: BLOOD SPECIMENOrdering Facility: [facility] Address: [address] [place] [address] Result Comment: eAG: (Estimated average glucose) is a calculated value from HgbA1c and is promotional representative of the average blood glucose level in the last 2-3 month period. Performed By: #### 5 5454-3 ####[place] [facility] [id number] [place] [address] [place] HbA1c (Bld) [Mass fraction] 7.0 % High 4.3-5.6 [facility] Comment on above: Order Comment: Deana borjas Type: BLOOD SPECIMENOrdering Facility: [facility] Address: [address] [place] [address] Result Comment: Amer [place] Diabetes Association guidelines indicate that patients with HgbA1c in the range 5.7-6.4% are at increased risk for development of diabetes, and intervention by lifestyle modification may be beneficial. HgbA1c greater or equal to 6.5% is considered diagnostic of diabetes. Performed By: #### 5 5454-3 ####[place] [facility] [id number] [place] [id number] [place] Lipid 1996 panelon Cholesterol [Mass/Vol] 193 mg/dL Normal <200 [facility] Comment on above: Order Comment: Speci men Type: BLOOD SPECIMENOrdering Facility: [facility] Address: [address] [place], [place] [address] Result Comment: <200 mg/dL, Desirable 200-239 mg/dL, Borderline high >239 mg/dL, High Performed By: #### 2 4331-1, 56602-9, 3015-3 ####[place] [facility] [id number] [address] [address] [place] Cholesterol in HDL [Mass/Vol] 44 mg/dL Normal >39 [facility] Comment on above: Order Comment: Speci men Type: BLOOD SPECIMENOrdering Facility: [facility] Address: [address] [place] [address] Result Comment: 40-5 9 mg/dL, Acceptable >59 mg/dL, High: Negative risk factor for coronary heart disease <40 mg/dL, Low: Positive risk factor for coronary heart disease Performed By: #### 2 4331-1, 17176-3, 3015-3 ####[place] [facility] [id number] [address] [address] [place] Cholesterol in LDL [Mass/Vol] 123 mg/dL High <100 [facility] Comment on above: Order Comment: Speci men Type: BLOOD SPECIMENOrdering Facility: [facility] Address: [address] [place] [address] Result Comment: <100 mg/dL, Optimal 100-129 mg/dL, Near optimal/above optimal 130-159 mg/dL, Borderline high 160-189 mg/dL, High >189 mg/dL, Very high Secondary prevention optimal LDL Cholesterol levels are recommended to be < 70 mg/dL Performed By: #### 2 4331-1, 27972-3, 3015-3 ####[place] [facility] [id number] [address] [address] [place] Cholesterol in LDL/Cholesterol in HDL [Mass ratio] 2.80 {ratio} High <2.54 [facility] Comment on above: Order Comment: Speci men Type: BLOOD SPECIMENOrdering Facility: [facility] Address: [address] [place] [address] Result Comment: Chong daniel: 1. National Cholesterol Education Program ATP III Guideline At-A-Glance Quick Desk Reference: National Heart, Lung, and Blood [place]. National Institutes of Health. 2001: NIH Publication No. 01-3305. 2. An International Atherosclerosis Society position paper: global recommendations for the management of dyslipidemia: executive summary, Atherosclerosis. 2014: 232(2):410-413. Performed By: #### 2 4331-1, 27148-9, 6-3 ####[place] [facility] [id number] [place] [address] [place] Cholesterol in VLDL [Mass/Vol] 26 mg/dL Normal <30 [facility] Comment on above: Order Comment: Speci men Type: BLOOD SPECIMENOrdering Facility: [facility] Address: [address] [place] [address] Performed By: #### 2 4331-1, 14746-3, 3015-3 ####[place] [facility] [id number] [place] [address] [place] Cholesterol non HDL [Mass/Vol] 149 mg/dL High <130 [facility] Comment on above: Order Comment: Speci men Type: BLOOD SPECIMENOrdering Facility: [facility] Address: [address] [place] [address] Result Comment: <130 mg/dL, Optimal 130-159 mg/dL, Near optimal/above optimal 160-189 mg/dL, Borderline high 190-219 mg/dL, High >219 mg/dL, Very high Secondary prevention optimal non HDL Cholesterol levels are recommended to be <100 mg/dL Performed By: #### 2 4331-1, 57172-5, 6-3 ####[place] [facility] [id number] [address] [address] [place] Cholesterol.total/Alta sterol in HDL [Mass ratio] 4.39 {ratio} Normal <5.10 [facility] Comment on above: Order Comment: Speci men Type: BLOOD SPECIMENOrdering Facility: [facility] Address: [address] [place] [address] Performed By: #### 2 4331-1, , 3 ####[place] [facility] [id number] [place] [address] [place] FASTING TIME 12 hrs Normal [facility] Comment on above: Order Comment: Speci men Type: BLOOD SPECIMENOrdering Facility: [facility] Address: [address] [place] [address] Performed By: #### 2 4331-1, , 3015-07 ####[place] [facility] [id number] [place] [address] [place] Triglyceride [Mass/Vol] 129 mg/dL Normal <150 [facility] Comment on above: Order Comment: Speci men Type: BLOOD SPECIMENOrdering Facility: [facility] Address: [address] [place] [address] Result Comment: <150 mg/dL, Normal 150-199 mg/dL, Borderline high 200-499 mg/dL, High >499 mg/dL, Very high Performed By: #### 2 4331-1, , 3015-07 ####[place] [facility] [id number] [place] [address] [place] TSH SerPl-aCncon 05-23-2024 TSH Qn 0.183 m[IU]/L Low 0.270-4.200 [facility] Comment on above: Order Comment: Speci men Type: BLOOD SPECIMENOrdering Facility: [facility] Address: [address] [place] [address] Performed By: #### 2 4331-1, , 3015-07 ####[place] [facility] [id number] [place] [address] [place] CNOVon 11-28-2023 [facility] LINDSAY ACUNA ([id number]) 1945 F Date Time Provider Department 11/28/23 9:40 AM KAMERON CARUSO During your visit today, we recorded the following information about you: Pulse Respiration Blood pressure Weight 68/minute 18/minute 142/78 80.6 kg Kameron Caruso MD 11/28/2023 11:45 AM Signed Chief Complaint Patient presents with: F/U 6 Month HPI October Armand is a 78 year old female who presents here today for 6 month follow up. Pt here today for her routine follow up. Is planning on going to [facility] in June. No bowel, gi, or urinary concerns. Does have some urinary leakage. Hx of tubulovillous adenoma; due for colonoscopy; will contact GI in [place] Lipid: Does not watch diet or exercise. Does do gardening, takes care of 8 flower beds. Also works for the [employer]. Taking Lipitor 80 mg daily. Tolerating well, no myalgia or gi upset. CKD: Monitored with labs. Thyroid: Was started on Levothyroxine 75 mcg daily last visit. Denies missing dosages, but states it's a pain to take in the morning. HTN: Does not check BP at home. Taking Atenolol 50 mg daily, Ramipril 10 mg 2 pills once daily. No chest pains, dizziness, or SOB DM: Checking BS occasionally, when she remembers. FBS 120-150. Taking Metformin XR 500 mg 4 pills once daily and Amaryl 2 mg daily. Denies any hypoglycemic episodes, no neuropathy sx. Follows with eye doctor. Denies following with Podiatry. Edema: B/l feet and ankles. Has compression stockings to wear. HM - Denies having Adv Dir/Living Will. Behavioral Health Screening, negative. Declines RSV vaccine. Behavioral Health Screening PHQ-2 Score: 0 (Lower risk for depression) MARLA-2 Score: 0 (Lower risk for anxiety) Recommendation: no further intervention at this time Past medical history, appointments, medications, allergies reviewed. [...] on File Prior to Visit Medication Sig predniSONE (DELTASONE) 10 mg tablet Take 4 tabs daily for 3 days, then 2 tabs daily for 3 days, then 1 tab daily for 3 days with food. famotidine (PEPCID) 20 mg tablet Take 1 tablet by mouth two times a day. triamcinolone (KENALOG) 0.025 % ointment Apply to affected area three times a day. glimepiride (AMARYL) 2 mg tablet Take 1 tablet by mouth daily with breakfast. levothyroxine (SYNTHROID) 75 mcg tablet Take 1 tablet by mouth daily before breakfast. blood sugar diagnostic (tweetTVUCH ULTRA TEST) test strip Test Blood Sugar one times daily Dx: E11.29 Insulin: No metFORMIN ER (GLUCOPHAGE XR) 500 mg 24 hr tablet Take 4 tablets by mouth daily with breakfast. ramipril (ALTACE) 10 mg capsule Take 2 capsules by mouth once daily. atenolol (TENORMIN) 50 mg tablet Take 1 tablet by mouth once daily. atorvastatin (LIPITOR) 80 mg tablet Take 1 tablet by mouth once daily. lancets (tweetTVUCH DELICA PLUS LANCET) 30 gauge Test blood [...] Social History Social History Tobacco Use Smoking stat (more content not included)... Normal [facility] Comprehensive metabolic 2000 panelon 11-27-2023 Albumin [Mass/Vol] 4.1 g/dL Normal 3.9-4.9 [facility] Comment on above: Order Comment: Speci men Type: BLOOD SPECIMENOrdering Facility: [facility] Address: [address] [place] [address] Performed By: #### 3 016-3, 78688-6, 85044-7 ####[place] [facility] [id number] [place] [address] [place] ALP [Catalytic activity/Vol] 86 U/L Normal 34-123 [facility] Comment on above: Order Comment: Speci men Type: BLOOD SPECIMENOrdering Facility: [facility] Address: [address] [place] [address] Performed By: #### 3 016-3, 90414-2, 49119-1 ####[place] [facility] [id number] [place] [address] [place] ALT [Catalytic activity/Vol] 13 U/L Normal 7-38 [facility] Comment on above: Order Comment: Speci men Type: BLOOD SPECIMENOrdering Facility: [facility] Address: [address] [place] [address] Performed By: #### 3 016-3, 00145-1, 16887-6 ####[place] [facility] [id number] [place] [address] [place] Anion gap [Moles/Vol] 10 mmol/L Normal 8-[address] [facility] Comment on above: Order Comment: Speci men Type: BLOOD SPECIMENOrdering Facility: [facility] Address: [address] [place] [address] Performed By: #### 3 016-3, 70212-6, 81125-8 ####[place] [facility] [id number] [place] [address] [place] AST [Catalytic activity/Vol] 21 U/L Normal 13-35 [facility] Comment on above: Order Comment: Speci men Type: BLOOD SPECIMENOrdering Facility: [facility] Address: [address] [place] [address] Performed By: #### 3 016-3, 29635-4, 49267-6 ####[place] [facility] [id number] [place] [address] [place] Bilirubin [Mass/Vol] 0.5 mg/dL Normal 0.2-1.3 [facility] Comment on above: Order Comment: Speci men Type: BLOOD SPECIMENOrdering Facility: [facility] Address: [address] [place] [address] Performed By: #### 3 016-3, 56057-7, 74391-6 ####[place] [facility] [id number] [place] [address] [place] Calcium [Mass/Vol] 9.7 mg/dL Normal 8.5-10.2 [facility] Comment on above: Order Comment: Speci men Type: BLOOD SPECIMENOrdering Facility: [facility] Address: [address] [place] [address] Performed By: #### 3 016-3, 04920-4, 06695-5 ####[place] [facility] [id number] [place] [address] [place] Chloride [Moles/Vol] 108 mmol/L High 98-107 [facility] Comment on above: Order Comment: Speci men Type: BLOOD SPECIMENOrdering Facility: [facility] Address: [address] [place] [address] Performed By: #### 3 016-3, 92098-1, 81378-3 ####[place] [facility] [id number] [place] [address] [place] CO2 [Moles/Vol] 23 mmol/L Normal 22-30 [facility] Comment on above: Order Comment: Speci men Type: BLOOD SPECIMENOrdering Facility: [facility] Address: [address] [place] [address] Performed By: #### 3 016-3, 60687-9, 15334-3 ####[place] [facility] [id number] [place] [address] [place] Creatinine [Mass/Vol] 1.37 mg/dL High 0.58-0.[address] [facility] Comment on above: Order Comment: Speci men Type: BLOOD SPECIMENOrdering Facility: [facility] Address: [address] [place] [address] Performed By: #### 3 016-3, 75334-6, 78488-7 ####[place] [facility] [id number] [place] [address] [place] Creatinine and Glomerular filtration rate.predicted panel (S/P/Bld) 39 mL/min/1.73m??? Low >=60 [facility] Comment on above: Order Comment: Speci men Type: BLOOD SPECIMENOrdering Facility: [facility] Address: [address] [place] [address] Result Comment: Nancy mated Glomerular Filtration Rate (eGFR) is calculated using the 2020 CKD-EPI creatinine equation. This equation utilizes serum creatinine, sex, and age as parameters. The creatinine assay has traceable calibration to isotope dilution-mass spectrometry. Refer to KDIGO guidelines for clinical interpretation. In patients with unstable renal function, e.g. those with acute kidney injury, the eGFR may not accurately reflect actual GFR. Performed By: #### 3 016-3, 47885-2, 56782-9 ####[place] [facility] [id number] [place] [address] [place] Glucose [Mass/Vol] 77 mg/dL Normal 74-99 [facility] Comment on above: Order Comment: Speci men Type: BLOOD SPECIMENOrdering Facility: [facility] Address: [address] [place] [address] Result Comment: The [place] Diabetes Association (ADA) provides guidance for cutoff [...] Standards of Medical Care in Diabetes 2016, [place] Diabetes Association. Diabetes Care. 2016.39(Suppl 1). Performed By: #### 3 016-3, , ####[place] [facility] [id number] [place] [address] [place] Potassium [Moles/Vol] 4.4 mmol/L Normal 3.7-5.[address] [facility] Comment on above: Order Comment: Nici men Type: BLOOD SPECIMENOrdering Facility: [facility] Address: [address] [place] [address] Performed By: #### 3 016-3, 07261-2, ####[place] [facility] [id number] [place] [address] [place] Protein [Mass/Vol] 6.6 g/dL Normal 6.3-8.0 [facility] Comment on above: Order Comment: Speci men Type: BLOOD SPECIMENOrdering Facility: [facility] Address: [address] [place] [address] Performed By: #### 3 016-3, 23263-8, 12760-5 ####[place] [facility] [id number] [place] [address] [place] Sodium [Moles/Vol] 141 mmol/L Normal 136-144 [facility] Comment on above: Order Comment: Speci men Type: BLOOD SPECIMENOrdering Facility: [facility] Address: [address] [place] [address] Performed By: #### 3 016-3, 09136-4, 85258-9 ####[place] [facility] [id number] [place] [address] [place] Urea nitrogen [Mass/Vol] 21 mg/dL Normal 7-21 [facility] Comment on above: Order Comment: Speci men Type: BLOOD SPECIMENOrdering Facility: [facility] Address: [address] [place] [address] Performed By: #### 3 016-3, 76903-1, 41316-5 ####[place] [facility] [id number] [place] [address] [place] HbA1c (Bld)on 11-27-2023 Average glucose Estimated from glycated hemoglobin (Bld) [Mass/Vol] 166 mg/dL Normal [facility] Comment on above: Order Comment: Speci men Type: BLOOD SPECIMENOrdering Facility: [facility] Address: [address] [place] [address] Result Comment: eAG: (Estimated average glucose) is a calculated value from HgbA1c and is promotional representative of the average blood glucose level in the last 2-3 month period. Performed By: #### 5 5454-3 ####[place] [facility] [id number] [place] [address] [place] HbA1c (Bld) [Mass fraction] 7.4 % High 4.3-5.6 [facility] Comment on above: Order Comment: Speci men Type: BLOOD SPECIMENOrdering Facility: [facility] Address: [address] [place] [address] Result Comment: [place] Diabetes Association guidelines indicate that patients with HgbA1c in the range 5.7-6.4% are at increased risk for development of diabetes, and intervention by lifestyle modification may be beneficial. HgbA1c greater or equal to 6.5% is considered diagnostic of diabetes. Performed By: #### 5 5454-3 ####[place] [facility] [id number] [place] [address] [place] Lipid 1996 panelon 4 Cholesterol [Mass/Vol] 156 mg/dL Normal <200 [facility] Comment on above: Order Comment: Nicelizabeth borjas Type: BLOOD SPECIMENOrdering Facility: [facility] Address: [address] [place] [address] Result Comment: <200 mg/dL, Desirable 200-239 mg/dL, Borderline high >239 mg/dL, High Performed By: #### 3 016-3, 66486-8, 45804-6 ####[place] [facility] [id number] [address] [place] Cholesterol in HDL [Mass/Vol] 41 mg/dL Normal >39 [facility] Comment on above: Order Comment: Deana borjas Type: BLOOD SPECIMENOrdering Facility: [facility] Address: [address] [place] [address] Result Comment: 40-5 9 mg/dL, Acceptable >59 mg/dL, High: Negative risk factor for coronary heart disease <40 mg/dL, Low: Positive risk factor for coronary heart disease Performed By: #### 3 016-3, 51479-4, 14152-4 ####[place] [facility] [id number] [address] [place] Cholesterol in LDL [Mass/Vol] 85 mg/dL Normal <100 [facility] Comment on above: Order Comment: Nici men Type: BLOOD SPECIMENOrdering Facility: [facility] Address: [address] [place] [address] Result Comment: <100 mg/dL, Optimal 100-129 mg/dL, Near optimal/above optimal 130-159 mg/dL, Borderline high 160-189 mg/dL, High >189 mg/dL, Very high Secondary prevention optimal LDL Cholesterol levels are recommended to be < 70 mg/dL Performed By: #### 3 016-3, 86689-4, 73238-5 ####[place] [facility] [id number] [place] [address] [place] Cholesterol in LDL/Cholesterol in HDL [Mass ratio] 2.07 {ratio} Normal <2.54 [facility] Comment on above: Order Comment: Speci men Type: BLOOD SPECIMENOrdering Facility: [facility] Address: [address] [place] [address] Result Comment: Refe rence: 1. National Cholesterol Education Program ATP III Guideline At-A-Glance Quick Desk Reference: National Heart, Lung, and Blood [place]. National Institutes of Health. 2001: NIH Publication No. 01-3305. 2. An International Atherosclerosis Society position paper: global recommendations for the management of dyslipidemia: executive summary, Atherosclerosis. 2014: 232(2):410-413. Performed By: #### 3 016-3, , 39232-2 ####[place] [facility] [id number] [place] [address] [place] Cholesterol in VLDL [Mass/Vol] 30 mg/dL High <30 [facility] Comment on above: Order Comment: Speci men Type: BLOOD SPECIMENOrdering Facility: [facility] Address: [address] [place] [address] Performed By: #### 3 016-3, 57327-2, 97655-1 ####[place] [facility] [id number] [place] [address] [place] Cholesterol non HDL [Mass/Vol] 115 mg/dL Normal <130 [facility] Comment on above: Order Comment: Speci men Type: BLOOD SPECIMENOrdering Facility: [facility] Address: [address] [place] [address] Result Comment: <130 mg/dL, Optimal 130-159 mg/dL, Near optimal/above optimal 160-189 mg/dL, Borderline high 190-219 mg/dL, High >219 mg/dL, Very high Secondary prevention optimal non HDL Cholesterol levels are recommended to be <100 mg/dL Performed By: #### 3 016-3, 68354-1, 14677-4 ####[place] [facility] [id number] [place] [address] [place] Cholesterol.total/Alta sterol in HDL [Mass ratio] 3.80 {ratio} Normal <5.10 [facility] Comment on above: Order Comment: Speci men Type: BLOOD SPECIMENOrdering Facility: [facility] Address: [address] [place] [address] Performed By: #### 3 016-3, 79099-9, 23701-0 ####[place] [facility] [id number] [place] [address] [place] FASTING TIME 12 hrs Normal [facility] Comment on above: Order Comment: Speci men Type: BLOOD SPECIMENOrdering Facility: [facility] Address: [address] [place] [address] Performed By: #### 3 016-3, 80513-0, 28599-2 ####[place] [facility] [id number] [place] [address] [place] Triglyceride [Mass/Vol] 148 mg/dL Normal <150 [facility] Comment on above: Order Comment: Speci men Type: BLOOD SPECIMENOrdering Facility: [facility] Address: [address] [place] [address] Result Comment: <150 mg/dL, Normal 150-199 mg/dL, Borderline high 200-499 mg/dL, High >499 mg/dL, Very high Performed By: #### 3 016-3, 60297-5, 29637-4 ####[place] [facility] [id number] [place] [id number] [place] TSH SerPl-aCncon 11-27-2023 TSH Qn 1.870 m[IU]/L Normal 0.270-4.200 [facility] Comment on above: Order Comment: Speci men Type: BLOOD SPECIMENOrdering Facility: [facility] Address: [address] [place] [address] Performed By: #### 3 016-3, 60426-2, 00506-2 ####[place] [facility] [id number] [address] [place] CNOVon 10-10-2023 CNOV Office Visit (UCWSTR ) LINDSAY ACUNA ([id number]) 1945 F Date Time Provider Department 10/10/23 7:30 AM DAVID DUPREE [facility] During your visit today, we recorded the following information about you: Temperature Pulse Respiration Blood pressure 97.5 degrees 58/minute 18/minute 128/82 Weight 82.1 kg David Dupree APRN.[employer] 10/10/2023 8:11 AM Signed Subjective HPI Nontoxic-appearing female presents urgent care accompanied with . Chief complaint rash. Duration of symptom 2 and half weeks. Associated symptoms pruritic erythematous rash. Patient states was seen here about 10 days ago. Diagnosed with contact dermatitis. Placed on Medrol Dosepak and steroid cream. States did help slightly rash is bothersome again. Has developed some new rash on her abdomen legs and groin area. Denies any recent medication changes antibiotic use. Overall feels well. Denies any fever body aches chills productive cough chest pain shortness of breath pleuritic pain hemoptysis nausea vomiting abdominal pain change in bowel or bladder habits. Past medical history prescription medication use and allergies reviewed. .Patient presents with: poison keya: all over x several weeks PAST MEDICAL HISTORY Diagnosis Date Coronary artery [...] Cocaine, Perfumes, and Sulfa (Sulfonamide Antibiotics) MEDICATIONS famotidine (PEPCID) 20 mg tablet Take 1 tablet by mouth two times a day. triamcinolone (KENALOG) 0.025 % ointment Apply to affected area three times a day. glimepiride (AMARYL) 2 mg tablet Take 1 tablet by mouth daily with breakfast. levothyroxine (SYNTHROID) 75 mcg tablet Take 1 tablet by mouth daily before breakfast. blood sugar diagnostic (ONETOUCH ULTRA TEST) test strip Test Blood Sugar one times daily Dx: E11.29 Insulin: No metFORMIN ER (GLUCOPHAGE XR) 500 mg 24 hr tablet Take 4 tablets by mouth daily with breakfast. ramipril (ALTACE) 10 mg capsule Take 2 capsules by mouth once daily. atenolol (TENORMIN) 50 mg tablet Take 1 tablet by mouth once daily. atorvastatin (LIPITOR) 80 mg tablet Take 1 tablet by mouth once daily. lancets (ONETOUCH DELICA PLUS LANCET) 30 gauge [...] TOUCH GLUCOSE CONTROL SOLN use as directed. FAMILY HISTORY Problem Relation Age of Onset Diabetes Mother Hypertension Mother Psychiatry Mother Cancer Other grandmother Thyroid Sister Social History Tobacco Use Smoking status: Never Smokeless tobacco: Never Vaping Use Vaping Use: Never used Substance Use Topics Alcohol use: No Drug use: No BP 128/82 Pulse (!) 58 Temp 36.4 ?C (97.5 ?F) (Tympanic) Resp 18 Wt 82.1 kg (181 lb) SpO2 100% BMI 28.35 kg/m? Review of Systems Constitutional: Negative for chills, fever and malaise/fatigue. HENT: Negative for congestion, ear discharge, ear pain, sinus pain and sore throat. Eyes: Negative for blurred vision, pain, discharge and redness. Respiratory: Negative for cough, hemoptysis, sputum production, shortness of breath, wheezing and stridor. Cardiovascular: Negative for chest pain. Gastrointestinal: Negative for abdominal pain, diarrhea, nausea and vomiting. Musculoskeletal: Negative for myalgias. Skin: Positive for itching and rash. Neurological: Negative for dizziness and headaches. Objective Physical Exam Constitutional: General: She is not in acute distress. Appearance: She is not toxic-appearing. HENT: Head: Normocephalic. Nose: Nose normal. Eyes: Pupils: Pupils are equal, round, and reactive to light. Cardiovascular: Rate and (more content not included)... Normal [facility] CNOVon 09-29-2023 CNOV Office Visit (UCWSTR ) LINDSAY ACUNA ([id number]) 1945 F Date Time Provider Department 09/29/23 2:15 PM RADHA LEVINE [facility] During your visit today, we recorded the following information about you: Temperature Pulse Respiration Blood pressure 97.8 degrees 54/minute 18/minute 148/91 Weight 84 kg Radha Levine, NAJMA 09/29/2023 6:12 PM Signed This note was created using NoteWriter. Subjective Lindsay Acuna is a 77 year old female. 77 year old female with PMH HTN, hyperlipidemia, CKD, DM, thyroid presents for rash Acute onset of symptoms was 2 days [employer]PA[employer]ER +bilateral hands, forearms +nape of neck +face +itching +redness Denies pain. Denies fever or chills Denies malaise or fatigue Denies new lotions, soaps, or medicines States that she was working out in the garden the same day the rash erupted. The history is provided by the patient. No bias cutter helper was used. Rash This is a new problem. Episode onset: 2 days ago. The problem is unchanged. Location: hands/neck/face. The rash is characterized by redness and itchiness. She was exposed to nothing. Pertinent negatives include no anorexia, congestion, cough, diarrhea, eye pain, facial edema, fatigue, fever, joint pain, nail changes, rhinorrhea, shortness of breath, sore throat or vomiting. Past treatments include nothing. The treatment provided no relief. There is no history of allergies, asthma, eczema or varicella. PAST MEDICAL HISTORY Diagnosis Date Coronary artery [...] Cocaine, Perfumes, and Sulfa (Sulfonamide Antibiotics) MEDICATIONS glimepiride (AMARYL) 2 mg tablet Take 1 tablet by mouth daily with breakfast. levothyroxine (SYNTHROID) 75 mcg tablet Take 1 tablet by mouth daily before breakfast. blood sugar diagnostic (Next Glass ULTRA TEST) test strip Test Blood Sugar one times daily Dx: E11.29 Insulin: No metFORMIN ER (GLUCOPHAGE XR) 500 mg 24 hr tablet Take 4 tablets by mouth daily with breakfast. ramipril (ALTACE) 10 mg capsule Take 2 capsules by mouth once daily. atenolol (TENORMIN) 50 mg tablet Take 1 tablet by mouth once daily. atorvastatin (LIPITOR) 80 mg tablet Take 1 tablet by mouth once daily. lancets (ONETOUCH DELICA PLUS LANCET) 30 gauge Test blood sugars 1 time daily. Dx: Type 2 DM Controlled E11.9. Insulin: no Chlorhexidine Gluconate (PERIDEX) 0.12 % solution Use 15 mL as instructed twice daily. Rinse around mouth for 30 seconds then expectorate blood sugar diagnostic (Pulpo MediaTOUCH ULTRA TEST STRIP) test strip Use to test sugars 1 times per day. Dx: E11.29. Insulin: No Betamethasone Dipropionate 0.05 % lotion Apply 1 application to affected area twice daily. ONE TOUCH GLUCOSE CONTROL SOLN use as directed. methylPREDNISolone (MEDROL, KIKE,) 4 mg Dose-Pack Follow dosing instructions, take with food. famotidine (PEPCID) 20 mg tablet Take 1 tablet by mouth two times a day. triamcinolone (KENALOG) 0.025 % ointment Apply to affected area three times a day. FAMILY HISTORY Problem Relation Age of Onset Diabetes Mother Hypertension Mother Psychiatry Mother Cancer Other grandmother Thyroid Sister Social History Tobacco Use Smoking status: Never Smokeless tobacco: Never Vaping Use Vaping Use: Never used Substance Use Topics Alcohol use: No Drug use: No Review of Systems Constitutional: Negative for activity change, appetite change, fatigue and fever. HENT: Negative for congestion, rhinorrhea and sore throat. Eyes: Negative for pain. Respiratory: Negative for apnea, cough, chest tightness and shortness of breath. Cardiovascular: Negative for chest pain, palpitations and leg swelling. Gastrointestinal: Negative for anorexia, diarrhea and vomiting. Musculoskeletal: Negative for arthralgias, back pain, gait problem and joint pain. Skin: Positive for rash. Negative for nail changes. Allergic/Immunologic: Negative for environmental allergies, food allergies and immunocompromised state. Hematologi (more content not included)... Normal [facility] Glucose,Bedsideon 04-16-2019 Glucose [Mass/Vol] 161 mg/dL High 70-100 [facility] Comment on above: Result Comment: Test performed by glucose meter. Results may be 10%-15% lower than serum/plasma values. (CLIA ID [id number]) Performed By: #### B GLU #### [facility] [address] [place] [address] Surgical Pathologyon 019 Surgical Pathology [id number] [facility] PATHOLOGY AND LABORATORY MEDICINE [address] [place], [place] [id number] FINAL SURGICAL PATHOLOGY REPORT ___ NAME: LINDSAY ACUNA : 1945 73 [facility] [id number] LOCATION: 1XEO PROCEDURE 01/09/2019 DATE: SURGEON: SANTIAGO JOSE M.D. RECEIVED 01/09/2019 DATE: ATTENDING: SANTIAGO JOSE M.D. 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 The cauterized margin of the specimen is negative for invasive disease. The adenomatous epithelium of the adenoma extends to the cauterized margin of the specimen. Angiolymphatic invasion is not identified. Dr. Villegas has reviewed this case and concurs with the above interpretation. The clinician's office was notified of the above diagnosis on 01/10/19. JAW/JAW Signature> ESTEFANI MCCONNELL, M.D. ___ CLINICAL INFORMATION: Rectal polyp SPECIMEN: COLON POLYP, BIOPSY ___ GROSS DESCRIPTION: Rectum Received in formalin are multiple fragments of jackson tissue aggregating to 1.5 x 0.5 cm. The largest piece measures 1.8 x 1.5 x 0.9 cm. A possible resection margin is inked in orange. This largest fragment is serially sectioned and entirely submitted. Cassette 1 smaller fragments of jackson tissue. Cassettes 2-3 serially sectioned largest piece of jackson tissue. (bits ns, 3) 3/SSF Disclaimer: The following statement applies to all immunohistochemistry, in situ hybridization, molecular studies, and immunofluorescence testing. The use of one or more reagents in the above tests is regulated as an analyte specific reagent (ASR). These tests were developed and their performance characteristics determined by the clinical laboratories of [facility]. They have not been cleared by the US Food and Drug Administration (FDA). The FDA has determined that such clearance or approval is not necessary. All the above immunostains were performed on paraffin embedded tissue. Appropriate positive and negative controls (where applicable) were run in parallel with the patient's specimen; these controls showed expected staining pattern, with acceptable intensity of staining. Immunohistochemical assays have not been validated on decalcified tissues. Results should be interpreted with caution given the raised possibility of false negativity on decalcified specimens. Professional Performing Location: [address] [address]. DEPARTMENT OF PATHOLOGY AND LABORATORY MEDICINE [place], [place] [address] Normal [facility] .Auto Diffon 08-22-2018 Ammonia mass conc (P) 1.10 10 3/mcL High 0.15-1.00 [facility] ([place]) Comment on above: Performed By: #### B MP, GFR #### [address] [address] Basophils #/vol (Bld) 0.00 10 3/mcL Normal 0.00-0.19 [facility] ([place]) Comment on above: Performed By: #### B MP, GFR #### [address] [address] Basophils/100 [facility] (Bld) 0.3 % Normal 0.0-2.5 [facility] ([place]) Comment on above: Performed By: #### B MP, GFR #### [address] [address] Eosinophils #/vol (Bld) 0.00 10 3/mcL Normal 0.00-0.40 [facility] ([place]) Comment on above: Performed By: #### B MP, GFR #### [address] [address] Eosinophils/100 WBC (Bld) 0.2 % Normal 0.0-7.0 [facility] ([place]) Comment on above: Performed By: #### B MP, GFR #### [address] [address] Lymphocytes #/vol (Bld) 2.20 10 3/mcL Normal 0.77-3.85 [facility] ([place]) Comment on above: Performed By: #### B MP, GFR #### [address] [address] Lymphocytes/100 WBC (Bld) 20.5 % Normal 10.0-50.0 [facility] ([place]) Comment on above: Performed By: #### B MP, GFR #### [address] [address] Monocytes/100 WBC (Bld) 10.5 % Normal 1.7-13.0 [facility] ([place]) Comment on above: Performed By: #### B MP, GFR #### [address] [address] Neutrophils/100 WBC (Bld) 68.5 % Normal 37.0-80.0 [facility] ([place]) Comment on above: Performed By: #### B MP, GFR #### [address] [address] .GFRon 08-22-2018 GFR Non- 33 ml/min/1.73sqm Normal [facility] ([place]) Comment on above: Result Comment: GFR Population mean for , Non- Americans Ages 20-29 = 116 mL/min/1.73 sq.m. Ages 30-39 = 107 mL/min/1.73 sq.m. Ages 40-49 = 99 mL/min/1.73 sq.m. Ages 50-59 = 93 mL/min/1.73 sq.m. Ages 60-69 = 85 mL/min/1.73 sq.m. Ages 70+ = 75 mL/min/1.73 sq.m. Chronic Kidney Disease: Less than 60 mL/min/1.73 square meters End Stage Renal Disease: Less than 15 mL/min/1.73 square meters Performed By: #### B MP, GFR #### [address] [address] #### JOHN, DORY, ANEU #### [place] [address] [address] GFR 40 ml/min/1.73sqm Normal [facility] ([place] Comment on above: Result Comment: GFR Population mean for , Non- Americans Ages 20-29 = 116 mL/min/1.73 sq.m. Ages 30-39 = 107 mL/min/1.73 sq.m. Ages 40-49 = 99 mL/min/1.73 sq.m. Ages 50-59 = 93 mL/min/1.73 sq.m. Ages 60-69 = 85 mL/min/1.73 sq.m. Ages 70+ = 75 mL/min/1.73 sq.m. Chronic Kidney Disease: Less than 60 mL/min/1.73 square meters End Stage Renal Disease: Less than 15 mL/min/1.73 square meters Performed By: #### B MP, GFR #### [address] [address] #### CBC, ADIFF, ANEU #### [address] [address] .NEUABSon 08-22-2018 Neutrophils #/vol (Bld) 7.40 10 3/mcL High 2.85-6.16 [facility] ([place] Comment on above: Performed By: #### B MP, GFR #### [place] [address] BMPon 08-22-2018 Calcium mass conc 8.3 mg/dL Low 8.4-10.2 [facility] ([place] Comment on above: Performed By: #### B MP, GFR #### [place] [address] #### CBC, ADIFF, ANEU #### [address] [address] Chloride molar conc 104 mmol/L Normal 98-107 [facility] [place] Comment on above: Performed By: #### B MP, GFR #### [place] [address] #### CBC, ADIFF, ANEU #### [address] [address] CO2 molar conc 25 mmol/L Normal 23-31 [facility] ([place] Comment on above: Performed By: #### B MP, GFR #### [place] [address] #### CBC, ADIFF, ANEU #### [address] [address] Creatinine mass conc 1.53 mg/dL High 0.55-1.02 [facility] ([place]) Comment on above: Performed By: #### B MP, GFR #### [place] [address] #### CBC, ADIFF, ANEU #### [address] [address] Electrolyte Balance 10.0 mEq/L Normal [facility] [place] Comment on above: Performed By: #### B MP, GFR #### [place] [address] #### CBC, ADIFF, ANEU #### [address] [address] Glucose mass conc 149 mg/dL High 83-110 [facility] ([place] Comment on above: Performed By: #### B MP, GFR #### [address] [address] #### CBC, ADIFF, ANEU #### [address] [address] Potassium molar conc 4.3 mmol/L Normal 3.5-5.1 [facility] ([place]) Comment on above: Performed By: #### B MP, GFR #### [place] [address] #### CBC, ADIFF, ANEU #### [address] [address] Sodium molar conc 139 mmol/L Normal 136-145 [facility] ([place] Comment on above: Performed By: #### B MP, GFR #### [place] [address] #### CBC, ADIFF, ANEU #### [address] [address] Urea nitrogen mass conc 32 mg/dL High 7-18 [facility] ([place] Comment on above: Performed By: #### B MP, GFR #### [place] [address] #### CBC, ADIFF, ANEU #### [address] [address] Urea nitrogen/Creatinine mass ratio 21 ratio Normal 7-27 [facility] ([place] Comment on above: Performed By: #### B MP, GFR #### [place] [address] #### CBC, ADIFF, ANEU #### [address] [address] CBCon 08-22-2018 Erythrocyte distribution width Ratio (RBC) 12.6 % Normal 11.5-14.5 [facility] ([place] Comment on above: Performed By: #### B MP, GFR #### [address] [address] Hematocrit Volume Fraction (Bld) 27.5 % Low 37.0-47.0 [facility] ([place] Comment on above: Performed By: #### B MP, GFR #### [address] [address] Hemoglobin mass conc (Bld) 9.2 G/dL Low 12.0-16.0 [facility] ([place] Comment on above: Performed By: #### B MP, GFR #### [address] [address] MCH Entitic mass (RBC) 30.1 pg Normal 27.0-31.2 [facility] [place] Comment [place] above: Performed By: #### B MP, GFR #### [place] [address] MCHC mass conc (RBC) 33.5 G/dL Normal 33.0-37.0 [facility] ([place]) Comment on above: Performed By: #### B MP, GFR #### [place] [address] MCV Entitic volume (RBC) 89.8 fL Normal 80.0-94.0 [facility] ([place] Comment on above: Performed By: #### B MP, GFR #### [address] [address] Platelet mean volume Entitic volume (Bld) 9.3 fL Normal 7.4-10.4 [facility] ([place] Comment on above: Performed By: #### B MP, GFR #### [address] [address] Platelets #/vol (Bld) 224 10 3/mcL Normal 130-400 [facility] ([place] Comment on above: Performed By: #### B MP, GFR #### [address] [address] RBC #/vol (Bld) 3.06 10 6/mcL Low 4.20-5.40 [facility] ([place]) Comment on above: Performed By: #### B MP, GFR #### [facility] [address] [place] [address] WBC #/vol (Bld) 10.80 10 3/mcL Normal 4.60-10.80 [facility] [place] Comment on above: Performed By: #### B MP, GFR #### [facility] [address] [place] [address] XR KNEE 1 OR 2 VIEWS RIGHTon 08-21-2018 XR KNEE 1 OR 2 VIEWS RIGHT ORIGINAL Portable AP and crosstable lateral 2 views CLINICAL STATEMENT: Status Post Arthroplasty , knee replacement surgery, check prosthesis alignment COMPARISON: CT 08/09/2018 FINDINGS: Interval total knee replacement surgery. The prosthesis shows satisfactory alignment. Expected postoperative changes are present in the soft tissues. Probable small joint effusion. IMPRESSION: Satisfactory alignment of knee prosthesis. Interpreted By: Renzo Sue MD Preliminary Report By: Renzo Sue MD Electronically Signed By: Renzo Sue MD Dictated Date: 08/21/2018 9:54:56 AM Prelim Date: 08/21/2018 9:54:56 AM Sign Date: 08/21/2018 9:55:37 AM Normal [facility] ([place] KNEE W/O CONTRAST RIGHTon 08-09-2018 CT KNEE W/O CONTRAST RIGHT ORIGINAL CT KNEE W/O CONTRAST RIGHT This exam was performed according to our departmental dose optimization program, and includes the following measures where applicable: automated exposure control, adjustment of the mAs and/or kVp according to patient size and/or exam, and an iterative reconstruction algorithm. CLINICAL STATEMENT: VARUS DEFORMITY RIGHT KNEE, pain and swelling COMPARISON: None FINDINGS: There is tricompartmental joint space narrowing and osteophyte formation. Subchondral sclerosis and cyst formation is noted in the medial femoral condyle and medial tibial plateau. A moderate suprapatellar effusion is demonstrated. Axial images were also acquired at the RIGHT hip and ankle and demonstrate no acute abnormality. IMPRESSION: Advanced osteoarthritis RIGHT knee. Interpreted By: Brenda Eldridge MD Preliminary Report By: Brenda Eldridge MD Electronically Signed By: Brenda Eldridge MD Dictated Date: 08/09/2018 5:01:26 PM Prelim Date: 08/09/2018 5:01:26 PM Sign Date: 08/09/2018 5:04:12 PM Normal [facility] ([place]) .Auto Diffon 08-06-2018 Ammonia mass conc (P) 0.80 10 3/mcL Normal 0.15-1.00 [facility] ([place] Comment on above: Performed By: #### C DORY SMITH, ANEU #### [place] [address] #### A1C #### [address] [address] Basophils #/vol (Bld) 0.10 10 3/mcL Normal 0.00-0.19 [facility] ([place]) Comment on above: Performed By: #### C DORY SMITH, ANEU #### [place] [address] #### A1C #### [address] [address] Basophils/100 WBC (Bld) 0.6 % Normal 0.0-2.5 [facility] ([place] Comment on above: Performed By: #### C DORY SMITH, ANEU #### [place] [address] #### A1C #### [address] [address] Eosinophils #/vol (Bld) 0.20 10 3/mcL Normal 0.00-0.40 [facility] ([place] Comment on above: Performed By: #### C DORY SMITH, ANEU #### [place] [address] #### A1C #### [address] [address] Eosinophils/100 WBC (Bld) 1.7 % Normal 0.0-7.0 [facility] ([place] Comment on above: Performed By: #### C DORY SMITH, ANEU #### [place] [address] #### A1C #### [address] [address] Lymphocytes #/vol (Bld) 1.90 10 3/mcL Normal 0.77-3.85 [facility] ([place] Comment on above: Performed By: #### C BC ADIFF, ANEU #### [address] [address] #### A1C #### [facility] [address] [place] [address] Lymphocytes/100 WBC (Bld) 20.8 % Normal 10.0-50.0 [facility] ([place]) Comment on above: Performed By: #### C BC ADIFF, ANEU #### [address] [address] #### A1C #### [address] [address] Monocytes/100 WBC (Bld) 9.3 % Normal 1.7-13.0 [facility] ([place] Comment on above: Performed By: #### C BC ADIFF, ANEU #### [address] [address] #### A1C #### [address] [address] Neutrophils/100 WBC (Bld) 67.6 % Normal 37.0-80.0 [facility] ([place] Comment on above: Performed By: #### C DORY SMITH, ANEU #### [address] [address] #### A1C #### [address] [address] .GFRon 08-06-2018 GFR 51 ml/min/1.73sqm Normal [facility] ([place]) Comment on above: Result Comment: GFR Population mean for , Non- Americans Ages 20-29 = 116 mL/min/1.73 sq.m. Ages 30-39 = 107 mL/min/1.73 sq.m. Ages 40-49 = 99 mL/min/1.73 sq.m. Ages 50-59 = 93 mL/min/1.73 sq.m. Ages 60-69 = 85 mL/min/1.73 sq.m. Ages 70+ = 75 mL/min/1.73 sq.m. Chronic Kidney Disease: Less than 60 mL/min/1.73 square meters End Stage Renal Disease: Less than 15 mL/min/1.73 square meters Performed By: #### B MP, GFR #### [place] [address] GFR Non- 42 ml/min/1.73sqm Normal [facility] ([place] Comment on above: Result Comment: GFR Population mean for , Non- Americans Ages 20-29 = 116 mL/min/1.73 sq.m. Ages 30-39 = 107 mL/min/1.73 sq.m. Ages 40-49 = 99 mL/min/1.73 sq.m. Ages 50-59 = 93 mL/min/1.73 sq.m. Ages 60-69 = 85 mL/min/1.73 sq.m. Ages 70+ = 75 mL/min/1.73 sq.m. Chronic Kidney Disease: Less than 60 mL/min/1.73 square meters End Stage Renal Disease: Less than 15 mL/min/1.73 square meters Performed By: #### B MP, GFR #### [place] [address] .NEUABSon 08-06-2018 Neutrophils #/vol (Bld) 6.20 10 3/mcL High 2.85-6.16 [facility] ([place]) Comment on above: Performed By: #### DORY SOTO, ANEU #### [address] [address] #### A1C #### [place] [address] A1Con 08-06-2018 Hemoglobin A1c/Hemoglobin.total mass fraction (Bld) 7.9 % High 4.5-6.2 [facility] ([place] Comment on above: Performed By: #### C DORY SMITH, ANEU #### [address] [address] #### A1C #### [place] [address] BMPon 08-06-2018 Calcium mass conc 9.2 mg/dL Normal 8.4-10.2 [facility] ([place] Comment on above: Performed By: #### B MP, GFR #### [address] [address] Chloride molar conc 105 mmol/L Normal 98-107 [facility] [place] Comment on above: Performed By: #### B MP, GFR #### [address] [address] CO2 molar conc 27 mmol/L Normal 23-31 [facility] ([place] Comment on above: Performed By: #### B MP, GFR #### [address] [address] Creatinine mass conc 1.25 mg/dL High 0.55-1.02 [facility] ([place] Comment on above: Performed By: #### B MP, GFR #### [place] [address] Electrolyte Balance 11.0 mEq/L Normal [facility] [place] Comment on above: Performed By: #### B MP, GFR #### [place] [address] Glucose mass conc 70 mg/dL Low 83-110 [facility] ([place] Comment on above: Performed By: #### B MP, GFR #### [place] [address] Potassium molar conc 5.0 mmol/L Normal 3.5-5.1 [facility] ([place]) Comment on above: Performed By: #### B MP, GFR #### [place] [id number] Sodium molar conc 143 mmol/L Normal 136-145 [facility] ([place] Comment on above: Performed By: #### B MP, GFR #### [address] [address] Urea nitrogen mass conc 26 mg/dL High 7-18 [facility] ([place] Comment on above: Performed By: #### B MP, GFR #### [address] [address] Urea nitrogen/Creatinine mass ratio 21 ratio Normal 7-27 [facility] ([place] Comment on above: Performed By: #### B MP, GFR #### [address] [address] CBCon 08-06-2018 Erythrocyte distribution width Ratio (RBC) 12.2 % Normal 11.5-14.5 [facility] ([place]) Comment on above: Performed By: #### C BCDORY, ANEU #### [address] [address] #### A1C #### [place] [address] Hematocrit Volume Fraction (Bld) 34.6 % Low 37.0-47.0 [facility] ([place]) Comment on above: Performed By: #### C DORY SMITH, ANEU #### [address] [address] #### A1C #### [place] [address] Hemoglobin mass conc (Bld) 11.7 G/dL Low 12.0-16.0 [facility] ([place]) Comment on above: Performed By: #### C DORY SMITH, ANEU #### [address] [address] #### A1C #### [place] [address] MCH Entitic mass (RBC) 30.6 pg Normal 27.0-31.2 [facility] ([place]) Comment on above: Performed By: #### C DORY SMITH, ANEU #### [place] [address] #### A1C #### [place] [address] MCHC mass conc (RBC) 33.7 G/dL Normal 33.0-37.0 [facility] ([place]) Comment on above: Performed By: #### C SARAH ADIFF, ANEU #### [address] [address] #### A1C #### [place] [address] MCV Entitic volume (RBC) 90.9 fL Normal 80.0-94.0 [facility] ([place] Comment on above: Performed By: #### C BC, ADIFF, ANEU #### [address] [address] #### A1C #### [address] [address] Platelet mean volume Entitic volume (Bld) 8.8 fL Normal 7.4-10.4 [facility] ([place] Comment on above: Performed By: #### C BC, ADIFF, ANEU #### [address] [address] #### A1C #### [address] [address] Platelets #/vol (Bld) 355 10 3/mcL Normal 130-400 [facility] ([place]) Comment on above: Performed By: #### C BC, ADIFF, ANEU #### [address] [address] #### A1C #### [address] [address] RBC #/vol (Bld) 3.81 10 6/mcL Low 4.20-5.40 [facility] ([place] Comment on above: Performed By: #### C BC, ADIFF, ANEU #### [address] [address] #### A1C #### [address] [address] WBC #/vol (Bld) 9.20 10 3/mcL Normal 4.60-10.80 [facility] ([place] Comment on above: Performed By: #### C BC, ADIFF, ANEU #### [address] [address] #### A1C #### [address] [address] Vital Signs Date Time Vital Sign Value Performing Clinician Facility 10-02-2024 09:21-0400 Body height 167.[address] Kameron Caruso MD Work Phone: [facility] 10-02-2024 09:21-0400 Diastolic blood pressure 71 mm[Hg] Dr. Kameron Caruso MD Work Phone: [facility] 10-02-2024 09:21-0400 Heart rate 77 /min Dr. Kameron Caruso MD Work Phone: [facility] 10-02-2024 09:21-0400 Respiratory rate 16 /min Dr. Kameron Caruso MD Work Phone: [facility] 10-02-2024 09:21-0400 Systolic blood pressure 111 mm[Hg] Dr. Kameron Caruso MD Work Phone: [facility] 09-09-2024 09:02-0400 Heart rate 100 /min SILVINO SCHEATZLE DO [facility] 09-09-2024 07:58-0400 Blood Pressure Cuff Size SILVINO SCHEATZLE DO [facility] 09-09-2024 07:58-0400 Blood Pressure Location SILVINO SCHEATZLE DO [facility] 09-09-2024 07:58-0400 Blood Pressure Method SILVINO SCHEATZLE DO [facility] 09-09-2024 07:58-0400 Body temperature 96.8 [degF] SILVINO SCHEATZLE DO [facility] 09-09-2024 07:58-0400 Diastolic Blood Pressure Non-Invasive 78 mm[Hg] SILVINO SCHEATZLE DO [facility] 09-09-2024 07:58-0400 Heart rate 110 /min SILVINO SCHEATZLE DO [facility] 09-09-2024 07:58-0400 Reason For Taking VItal Signs SILVINO SCHEATZLE DO [facility] 09-09-2024 07:58-0400 Respiratory rate 16 /min SILVINO CIDATZLE DO [facility] 09-09-2024 07:58-0400 Systolic Blood Pressure Non-Invasive 122 mm[Hg] SILVINO CIDATZLE DO [facility] 09-09-2024 02:45-0400 Body temperature 97.7 [degF] SILVION CIDATZLE DO [facility] 09-09-2024 02:45-0400 Diastolic Blood Pressure Non-Invasive 60 mm[Hg] SILVINO CIDATZLE DO [facility] 09-09-2024 02:45-0400 Heart rate 92 /min SILVINO CIDATZLE DO [facility] 09-09-2024 02:45-0400 Respiratory rate 16 /min SILVINO CIDATZLE DO [facility] 09-09-2024 02:45-0400 Systolic Blood Pressure Non-Invasive 108 mm[Hg] SILVINO CIDATZLE DO [facility] 09-08-2024 22:28-0400 Blood Pressure Cuff Size SILVINO CIDATZLE DO [facility] 09-08-2024 22:28-0400 Blood Pressure Location SILVINO CIDATZLE DO [facility] 09-08-2024 22:28-0400 Blood Pressure Method SILVINO CIDATZLE DO [facility] 09-08-2024 22:28-0400 Body temperature 97.88 [degF] SILVINO CIDATZLE DO [facility] 09-08-2024 22:28-0400 Diastolic Blood Pressure Non-Invasive 54 mm[Hg] SILVINO PALAKATZLE DO [facility] 09-08-2024 22:28-0400 Heart rate 92 /min SILVINO CIDATZLE DO [facility] 09-08-2024 22:28-0400 Reason For Taking VItal Signs SILVINO CIDATZLE DO [facility] 09-08-2024 22:28-0400 Respiratory rate 16 /min SILIVNO CIDATZLE DO [facility] 09-08-2024 22:28-0400 Systolic Blood Pressure Non-Invasive 118 mm[Hg] SILVINO CIDATZLE DO [facility] 09-08-2024 18:21-0400 Heart rate 90 /min SILVINO CIDATZLE DO [facility] 09-08-2024 09:08-0400 Blood Pressure Cuff Size SILVINO CIDATZLE DO [facility] 09-08-2024 09:08-0400 Blood Pressure Location SILVNIO CIDATZLE DO [facility] 09-08-2024 09:08-0400 Blood Pressure Method SILVINO CIDATZLE DO [facility] 09-08-2024 09:08-0400 Heart rate 114 /min SILVINO CIDATZLE DO [facility] 09-08-2024 09:08-0400 Reason For Taking VItal Signs SILVINO CIDATZLE DO [facility] 09-04-2024 10:54-0400 Body temperature 96.62 [degF] SILVINO CIDATZLE DO [facility] 09-03-2024 00:26-0400 Body temperature 97.34 [degF] SILVINO CIDATZLE DO [facility] 08-30-2024 22:54-0400 Body temperature 98.06 [degF] SILVINO CIDATZLE DO [facility] 08-26-2024 10:36-0400 Body weight 76 kg SILVINO CIDATZLE DO [facility] 08-19-2024 06:00-0400 Body weight 75.3 kg SILVINO CIDATZLE DO [facility] 08-15-2024 14:27-0400 Body height 170.2 cm SILVINO CIDATZLE DO [facility] 08-15-2024 14:27-0400 Body weight 75.4 kg SILVINO CIDATZLE DO [facility] 08-15-2024 14:27-0400 Body weight 26.03 kg/m2 SILVINO HA DO [facility] 08-15-2024 09:02-0400 Diastolic blood pressure 69 mm[Hg] Prema Ramos MD Work Phone: [facility] 08-15-2024 09:02-0400 Systolic blood pressure 128 mm[Hg] Prema Ramos MD Work Phone: [facility] 08-15-2024 07:28-0400 Heart rate 86 /min Prema Ramos MD Work Phone: [facility] 08-15-2024 07:18-0400 Body temperature 97.3 [degF] Prema Ramos MD Work Phone: [facility] 08-15-2024 07:18-0400 Respiratory rate 23 /min Prema Ramos MD Work Phone: [facility] 08-15-2024 07:18-0400 SaO2% (BldA) [Mass fraction] 95 % Prema Ramos MD Work Phone: [facility] 08-05-2024 08:00-0400 Body height 170.2 cm Prema Ramos MD Work Phone: [facility] 08-05-2024 08:00-0400 Body mass index (BMI) [Ratio] 26.94 kg/m2 Prema Ramos MD Work Phone: 0(299)144-577526 [address] 08-05-2024 08:00-0400 Body weight 78.02 kg Prema Ramos MD Work Phone: 0(490)357-963226 [address] 08-02-2024 13:52-0400 Body temperature 98 [degF] Dr. Kameron Caruso MD Work Phone: 6(970)659-543597 [place] [address] 08-02-2024 13:52-0400 Diastolic blood pressure 91 mm[Hg] Dr. Kameron Caruso MD Work Phone: 3(959)657-911101 [place] [address] 08-02-2024 13:52-0400 Heart rate 109 /min Dr. Kameron Caruso MD Work Phone: 3(731)467-966431 [address] 08-02-2024 13:52-0400 Respiratory rate 16 /min Dr. Kameron Caruso MD Work Phone: 2(810)574-561197 [place] [address] 08-02-2024 13:52-0400 SaO2% (BldA) [Mass fraction] 98 % Dr. Kameron Caruso MD Work Phone: 7(214)[phone] [place] [address] 08-02-2024 13:52-0400 Systolic blood pressure 153 mm[Hg] Dr. Kameron Caruso MD Work Phone: 8(738)[phone] [place] [address] 08-02-2024 12:46-0400 Body height 167.[address] Kameron Caruso MD Work Phone: [facility] 08-02-2024 12:46-0400 Body mass index (BMI) [Ratio] 26.6 kg/m2 Dr. Kameron Caruso MD Work Phone: [facility] 08-02-2024 12:46-0400 Body weight [address] Kameron Caruso MD Work Phone: [facility] 06-26-2024 09:39-0500 Body mass index (BMI) [Ratio] 27.25 kg/m2 Emma Allyhof [employer] Work Phone: [facility] 06-26-2024 09:39-0500 Body weight 78.93 kg Emmadanielle Canaleshof [employer] Work Phone: [facility] 06-26-2024 09:39-0500 Diastolic blood pressure 88 mm[Hg] Emma Canaleshof [employer] Work Phone: [facility] 06-26-2024 09:39-0500 Heart rate 93 /min Emmadanielle Canaleshof [employer] Work Phone: [facility] 06-26-2024 09:39-0500 Respiratory rate 16 /min Emmadanielle Canaleshof [employer] LE[employer] Work Phone: [facility] 06-26-2024 09:39-0500 SaO2% (BldA) [Mass fraction] 98 % Emmadanielle Canaleshof [employer] Work Phone: [facility] 06-26-2024 09:39-0500 Systolic blood pressure 144 mm[Hg] Emma Canaleshof [employer] Work Phone: [facility] 05-31-2024 08:56-0500 Diastolic blood pressure 84 mm[Hg] Kameron Caruso MD Work Phone: [facility] 05-31-2024 08:56-0500 Systolic blood pressure 136 mm[Hg] Kameron Caruso MD Work Phone: [facility] 05-31-2024 08:47-0500 Body mass index (BMI) [Ratio] 27.28 kg/m2 Kameron Caruso MD Work Phone: [facility] 05-31-2024 08:47-0500 Body weight 79 kg Kameron Caruso MD Work Phone: [facility] 05-31-2024 08:47-0500 Heart rate 100 /min Kameron Caruso MD Work Phone: [facility] 05-31-2024 08:47-0500 Respiratory rate 18 /min Kameron Caruso MD Work Phone: [facility] 11-28-2023 09:42-0400 Diastolic blood pressure 78 mm[Hg] Kameron Caruso MD Work Phone: [facility] 11-28-2023 09:42-0400 Systolic blood pressure 142 mm[Hg] Kameron Caruso MD Work Phone: [facility] 11-28-2023 09:41-0400 Body mass index (BMI) [Ratio] 27.82 kg/m2 Kameron Caruso MD Work Phone: [facility] 11-28-2023 09:41-0400 Body weight 80.56 kg Kameron Caruso MD Work Phone: [facility] 11-28-2023 09:41-0400 Heart rate 68 /min Kameron Caruso MD Work Phone: [facility] 11-28-2023 09:41-0400 Respiratory rate 18 /min Kameron Caruso MD Work Phone: [facility] 10-10-2023 07:31-0400 Body mass index (BMI) [Ratio] 28.35 kg/m2 David Dupree INFANT LEAD TEACHER.[employer] Work Phone: [facility] 10-10-2023 07:31-0400 Body temperature 97.5 [degF] David Dupree INFANT LEAD TEACHER.[employer] Work Phone: [facility] 10-10-2023 07:31-0400 Body weight 82.1 kg David Dupree INFANT LEAD TEACHER.[employer] Work Phone: [facility] 10-10-2023 07:31-0400 Diastolic blood pressure 82 mm[Hg] David Dupree INFANT LEAD TEACHER.[employer] Work Phone: [facility] 10-10-2023 07:31-0400 Heart rate 58 /min David Dupree INFANT LEAD TEACHER.[employer] Work Phone: [facility] 10-10-2023 07:31-0400 Respiratory rate 18 /min David Pakantonia INFANT LEAD TEACHER.[employer] Work Phone: [facility] 10-10-2023 07:31-0400 SaO2% (BldA) [Mass fraction] 100 % David Dupree INFANT LEAD TEACHER.[employer] MECH[employer] Work Phone: [facility] 10-10-2023 07:31-0400 Systolic blood pressure 128 mm[Hg] David Pakantonia INFANT LEAD TEACHER.[employer] Work Phone: [facility] 09-29-2023 14:14-0400 Body mass index (BMI) [Ratio] 29 kg/m2 Radha Levine INFANT LEAD TEACHER.[employer] Work Phone: [facility] 09-29-2023 14:14-0400 Body temperature 97.81 [degF] Radha Levine INFANT LEAD TEACHER.[employer] Work Phone: [facility] 09-29-2023 14:14-0400 Body weight 84 kg Radha Levine INFANT LEAD TEACHER.[employer] Work Phone: [facility] 09-29-2023 14:14-0400 Diastolic blood pressure 91 mm[Hg] Radha Levine INFANT LEAD TEACHER.[employer] Work Phone: [facility] 09-29-2023 14:14-0400 Heart rate 54 /min Radha Levine INFANT LEAD TEACHER.[employer] ME[employer] Work Phone: [facility] 09-29-2023 14:14-0400 Respiratory rate 18 /min Radha Levine INFANT LEAD TEACHER.[employer] ME[employer] Work Phone: [facility] 09-29-2023 14:14-0400 SaO2% (BldA) [Mass fraction] 99 % Radha Levine INFANT LEAD TEACHER.[employer] ME[employer] Work Phone: [facility] 09-29-2023 14:14-0400 Systolic blood pressure 148 mm[Hg] Radha Levine INFANT LEAD TEACHER.[employer] Work Phone: [facility] 05-27-2022 09:42-0500 Body weight 83.83 kg Kameron Caruso MD Work Phone: [facility] 05-27-2022 09:42-0500 Diastolic blood pressure 84 mm[Hg] Kameron Caruso MD Work Phone: [facility] 05-27-2022 09:42-0500 Heart rate 68 /min Kameron Caruso MD Work Phone: [facility] 05-27-2022 09:42-0500 Respiratory rate 16 /min Kameron Caruso MD Work Phone: [facility] 05-27-2022 09:42-0500 Systolic blood pressure 136 mm[Hg] Kameron Caruso MD Work Phone: [facility] 03-02-2022 10:52-0400 Diastolic blood pressure 76 mm[Hg] Emam Tannhof INFANT LEAD TEACHER.[employer] Work Phone: [facility] 03-02-2022 10:52-0400 Heart rate 92 /min Emma Tannhof INFANT LEAD TEACHER.[employer] Work Phone: [facility] 03-02-2022 10:52-0400 Respiratory rate 18 /min Emma Tannhof INFANT LEAD TEACHER.[employer] MECH[employer] Work Phone: [facility] 03-02-2022 10:52-0400 Systolic blood pressure 140 mm[Hg] Emma Tannhof INFANT LEAD TEACHER.[employer] Work Phone: [facility] 11-23-2021 09:39-0400 Body weight 83.1 kg Kameron Caruso MD Work Phone: [facility] 11-23-2021 09:39-0400 Diastolic blood pressure 80 mm[Hg] Kameron Caruso MD Work Phone: [facility] 11-23-2021 09:39-0400 Heart rate 84 /min Kameron Caruso MD Work Phone: [facility] 11-23-2021 09:39-0400 Respiratory rate 16 /min Kameron Caruso MD Work Phone: [facility] 11-23-2021 09:39-0400 Systolic blood pressure 138 mm[Hg] Kameron Caruso MD Work Phone: [facility] 10-16-2019 10:09-0400 BP Diastolic 72 mm[Hg] Santiago Miller [facility] [place] 10-16-2019 10:09-0400 BP Systolic 144 mm[Hg] Santiago Miller [facility] [place] , [place] 10-16-2019 10:09-0400 Pulse (Heart Rate) 62 /min Santiago Miller [facility] 10-16-2019 10:09-0400 Pulse Oximetry 98 % Santiago Miller [facility] [place] 10-16-2019 10:09-0400 Respiratory Rate 18 /min Santiago Miller [facility] 10-16-2019 09:15-0400 BMI (Body Mass Index) 29.44 kg/m2 Santiago Miller [facility], [place] 10-16-2019 09:15-0400 Body Temperature 97.81 [degF] Santiago Miller [facility] 10-16-2019 09:15-0400 Body weight 85.28 kg Santiago Miller [facility] [place] 10-16-2019 09:15-0400 Height 170.2 cm Santiago Miller [facility] [place] 01-09-2019 12:06-0400 BP Diastolic 73 mm[Hg] [facility] [place] 01-09-2019 12:06-0400 BP Systolic 121 mm[Hg] Santiago Miller [facility] [place] 01-09-2019 11:50-0400 Pulse (Heart Rate) 64 /min Santiago Miller [facility] 01-09-2019 11:50-0400 Pulse Oximetry 100 % Santiago Miller [facility] [place] 01-09-2019 11:50-0400 Respiratory Rate 18 /min Santiago Miller [facility] 01-09-2019 10:28-0400 BMI (Body Mass Index) 28.82 kg/m2 Santiago Miller [facility] [place] 01-09-2019 10:28-0400 Body weight 83.46 kg Santiago Miller [facility] [place] 01-09-2019 10:28-0400 Height 170.2 cm Santiago Miller [facility] [place] 01-09-2019 10:27-0400 Body Temperature 97.5 [degF] Santiago Jose [facility] [place] [place] Encounters Encounter Date Encounter Type Care Provider Facility Start: 10-08-2024 ambulatory Kameron Caruso Facilit y:[facility] Start: 10-02-2024 End: 10-02-[address] Mj Benavides MD -[facility] Work Phone: Start: 10-02-2024 End: 10-02-[address] Kameron Caruso MD Work Phone: [facility] Work Phone: Start: 10-01-2024 ambulatory Kameron Lovelaceck Facilit y:[facility] Start: 10-01-2024 Registered Referred Safia Torres Start: 09-29-2024 ambulatory Safia VARGAS Fa cility:[facility] Start: 09-29-2024 Registered Referred Safia Torres Start: 09-24-2024 ambulatory Kameron Caruso Facilit y:[facility] Start: 09-24-2024 Registered Referred Safia Torres Start: 09-17-2024 ambulatory Kameron Lovelaceck Facilit y:[facility] Start: 09-17-2024 Registered Referred Safia Torres Start: 09-11-2024 End: 09-11-2024 ambulatory Kameron Caruso Facility:[facility] Start: 09-10-2024 End: 09-10-2024 ambulatory Kameron Caruso Facility:[facility] Start: 09-10-2024 Registered Referred Safia Torres Start: 08-30-2024 End: 08-30-2024 Telephone encounter Kameron Crauso MD Work Phone: [facility] Comment on above: [facility] amaya ng verbal agree to follow Start: 08-15-2024 End: 09-09-2024 Evaluation and management of inpatient SILVINO HA DO Tyler Garcia Start: 08-09-2024 Evaluation and manag ement of inpatient KAMERON CARUSO Facility:[facility] Start: 08-06-2024 Evaluation and manag ement of inpatient [facility] Start: 08-02-2024 End: 08-02-2024 ambulatory [place]UVENTINO [place] Facility:[facility] Start: 08-02-2024 End: 08-15-2024 Evaluation and management of inpatient Prema Ramos MD Work Phone: [id number] Start: 08-02-2024 End: 08-02-2024 Emergency department patient visit Dr. Kameron Caruso MD Work Phone: -Emergency Department Work Phone: Start: 07-03-2024 End: 07-03-2024 Telephone encounter Kameron Caruso MD Work Phone: [facility] Comment on above: request for medicati on Start: 07-02-2024 End: 07-02-2024 Telephone encounter Kameron Caruso MD Work Phone: [facility] [place] Comment on above: Faxed Referral Start: 06-28-2024 End: 07-01-2024 Telephone encounter Kameron Caruso MD Work Phone: Family [facility] Comment on above: medication not on cu rrent med list Start: 06-26-2024 End: 06-26-2024 Office outpatient visit 25 minutes Emma Sotomayor APRN.GARRETT Work Phone: [facility] [place] Comment on above: Atrial fibrillation, unspecified type (HCC) (Primary Dx); Hypothyroidism, unspecified type; Need for malaria prophylaxis Start: 06-26-2024 End: 06-26-2024 ambulatory EMMA SOTOMAYOR Facility:[facility] Start: 06-25-2024 ambulatory KAMERON CARUSO Facil ity:[facility] Start: 06-24-2024 End: 06-24-2024 Telephone encounter Kameron Caruso MD Work Phone: [facility] [place] Comment on above: Patient Update Start: 06-11-2024 End: 06-11-2024 Telephone encounter Kameron Caruso MD Work Phone: [facility] Comment on above: Results Start: 06-11-2024 End: 06-11-2024 ambulatory [facility] Facility:[facility] Start: 06-10-2024 End: 06-11-2024 Telephone encounter Kameron Caruso MD Work Phone: [facility] Comment on above: Medication Problem Start: 05-31-2024 End: 05-31-2024 ambulatory [facility] Facility:[facility] Start: 05-31-2024 End: 05-31-2024 Patient encounter procedure Kameron Caruso MD Work Phone: [facility] [place] Comment on above: Essential hypertensi on, benign (Primary Dx); Type 2 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, without long-term current use of insulin (HCC); Chronic kidney disease, stage 3a (HCC); Hyperlipidemia, unspecified hyperlipidemia type; Hypothyroidism, unspecified type; Edema of left lower leg; Memory loss; Urinary incontinence, unspecified type; Irregular heart beat; Atrial fibrillation, unspecified type (HCC) Start: 05-23-2024 End: 05-23-2024 [facility] Facility:[facility] Start: 11-28-2023 End: 11-28-2023 [facility] Facility:[facility] Start: 11-28-2023 End: 11-28-2023 Patient encounter procedure Kameron Caruso MD Work Phone: [facility] [place] Comment on above: 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, unspecified CKD stage, unspecified whether taker off braker machine insulin use (HCC) (Primary Dx); Essential hypertension, benign; Chronic kidney disease, stage 3a (HCC); Hyperlipidemia, unspecified hyperlipidemia type; Hypothyroidism, unspecified type; Edema of left lower leg; Memory loss; Type 2 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, without long-term current use of insulin (HCC) Start: 11-27-2023 End: 11-27-2023 [facility] Facility:[facility] Start: 10-10-2023 End: 10-10-2023 ambulatory KAMERNO CARUSO Facility:[facility] Start: 10-10-2023 End: 10-10-2023 Office outpatient visit 25 minutes David Joon INFANT LEAD TEACHER.[employer] Work Phone: [facility] Comment on above: Rash (Primary Dx) Start: 09-29-2023 End: 09-29-2023 ambulatory [place] Facility:[facility] Start: 09-29-2023 End: 09-29-2023 Patient encounter procedure Radha Levine INFANT LEAD TEACHER.[employer] Work Phone: [facility] Comment on above: Allergic contact lexi matitis due to plant (Primary Dx) Start: 09-19-2023 Refill Kameron nixon MD Work Phone: [facility] [place] Comment on above: Refill Request Start: 04-08-2023 Telephone encounter Kameron bucio MD Work Phone: [address] [place] [address] Comment on above: Refill Request Start: 11-25-2022 Telephone encounter Kameron bucio MD Work Phone: [facility] [place] Comment on above: Patient Question Start: 05-27-2022 End: 05-27-2022 Patient encounter procedure Kameron Caruso MD Work Phone: [facility] [place] Comment on above: Essential hypertensi on, benign (Primary Dx); Hypothyroidism, unspecified type; Type 2 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, without long-term current use of insulin (HCC); Hyperlipidemia, unspecified hyperlipidemia type; Chronic kidney disease, stage 3a (HCC); Edema of left lower leg; Wellness examination Start: 05-27-2022 End: 05-27-2022 Patient encounter status Kameron Caruso MD Work Phone: [facility] [place] Start: 04-11-2022 Refill Kameron nixon MD Work Phone: [facility] Comment on above: Refill Request Start: 03-02-2022 ambulatory Kameron nixon MD Work Phone: [facility] [place] Comment on above: Back Pain Start: 03-02-2022 End: 03-02-2022 Patient encounter procedure Emma Sotomayor INFANT LEAD TEACHER.[employer] Work Phone: [facility] [place] Comment on above: Acute midline low ba ck pain without sciatica (Primary Dx) Start: 01-11-2022 Refill Mj ORTIZ RN.[employer] Work Phone: [facility] [place] Comment on above: Refill Request Start: 01-11-2022 Refill Kameron nixon MD Work Phone: [facility] [place] Comment on above: Refill Request Start: 12-16-2021 Telephone encounter Kameron bucio MD Work Phone: [facility] [place] Comment on above: Diabetic Testing Sup plies Start: 11-23-2021 End: 11-23-2021 Refill Kameron Caruso MD Work Phone: [facility] [place] Comment on above: 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, unspecified CKD stage, unspecified whether taker off braker machine insulin use (HCC) (Primary Dx); Essential hypertension, benign; Hyperlipidemia, unspecified hyperlipidemia type; Stage 3b chronic kidney disease (HCC); Hypothyroidism, unspecified type; Memory loss Start: 10-14-2021 Refill Kameron nixon MD Work Phone: [facility] [place] Comment on above: Refill Request Start: 09-27-2021 Telephone encounter aKmeron bucio MD Work Phone: [facility] Comment on above: information requeste d/rxs needed Start: 09-13-2021 Telephone encounter Kameron bucio MD Work Phone: [facility] Comment on above: Patient Question; Me dication Request Start: 10-16-2019 End: 10-16-2019 Subsequent hospital visit by physician Santiago Jose Work Phone: [facility] Comment on above: Arrived Start: 01-09-2019 End: 01-09-2019 Subsequent hospital visit by physician Santiago Jose Work Phone: [facility] Start: 08-21-2018 End: 08-22-2018 Patient encounter procedure KETTY DOWNS Facility:[facility] Start: 07-23-2018 Patient encounter procedure KETTY DOWNS Facility:[facility] Procedures Date Procedure Procedure Detail Performing Clinician Start: 09-29-[address] e detection Dr. 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: Start: 08-15-2024 Glucose measurement, blood Christos Voss MD Work Phone: Start: 08-14-2024 Glucose measurement, blood Christos Voss MD Work Phone: Start: 08-14-2024 Glucose measurement, blood Christos Voss MD Work Phone: Start: 08-14-2024 Glucose measurement, blood Christos Voss MD Work Phone: Start: 08-14-2024 Assay of magnesium Abdoule scott Schulteameh 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: Start: 08-13-2024 Glucose measurement, blood Christos Voss MD Work Phone: Start: 08-13-2024 Glucose measurement, blood Christos Voss MD Work Phone: Start: 08-13-2024 Glucose measurement, blood Christos Voss MD Work Phone: Start: 08-13-2024 Glucose measurement, blood Felicity Castellano MD Work Phone: Start: 08-13-2024 Assay of magnesium Nase scott Mccoy 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: Start: 08-13-2024 Glucose measurement, blood Felicity Castellano MD Work Phone: Start: 08-12-2024 Glucose measurement, blood Felicity Castellano MD Work Phone: Start: 08-12-2024 Glucose measurement, blood Felicity Castellano MD Work Phone: Start: 08-12-2024 Glucose measurement, blood Felicity Castellano MD Work Phone: Start: 08-12-2024 Assay of magnesium Abdoule scott Hwang Nadine INFANT LEAD TEACHER-[facility] Work Phone: Start: 08-12-2024 Glucose measurement, blood Felicity Castellano MD Work Phone: Start: 08-11-2024 Glucose measurement, blood Felicity Castellano MD Work Phone: Start: 08-11-2024 Glucose measurement, blood Felicity Castellano MD Work Phone: Start: 08-11-2024 Glucose measurement, blood Felicity Castellano MD Work Phone: Start: 08-11-2024 Assay of magnesium Abram Hwang [facility] Work Phone: Start: 08-10-2024 Glucose measurement, blood Felicity Castellano MD Work Phone: Start: 08-10-2024 Glucose measurement, blood Felicity Castellano MD Work Phone: Start: 08-10-2024 End: 08-10-2024 Culture bacterial blood aerobic w/id isolates Radha Gr INFANT LEAD TEACHER-[facility] Work Phone: Start: 08-10-2024 Glucose measurement, blood Felicity Castellano MD Work Phone: Start: 08-10-2024 End: 08-10-2024 Glucose measurement, blood Felicity Castellano MD Work Phone: Start: 08-10-2024 Glucose measurement, blood Felicity Castellano MD Work Phone: Start: 08-10-2024 Assay of magnesium Abram Schulteameh 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: Start: 08-10-2024 Glucose measurement, blood Felicity Castellano MD Work Phone: Start: 08-09-2024 Glucose measurement, blood Felicity Castellano MD Work Phone: Start: 08-09-2024 Glucose measurement, blood Felicity Castellano MD Work Phone: Start: 08-09-2024 INTERVENTIONAL UPPER ENDOSCOPY Jonnie Mccabe MD Work Phone: Start: 08-09-2024 Level iv surg pathol ogy gross&microscopic exam Judson Keith DO Work Phone: Start: 08-09-2024 Glucose measurement, blood Felicity Castellano MD Work Phone: Start: 08-09-2024 Assay of magnesium Abram Hwang Nadine 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: Start: 08-09-2024 Glucose measurement, blood Felicity Castellano MD Work Phone: Start: 08-08-2024 Glucose measurement, blood Felicity Castellano MD Work Phone: Start: 08-08-2024 Culture bct isol&prs mptv id isolate ea urine Bella Cardenas 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: Start: 08-08-2024 EXTRA MICRO Bella matthews 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: Start: 08-08-2024 URINALYSIS REFLEX TO CULTURE Bella Cardenas 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: Start: 08-08-2024 Ct head/brain w/o co ntrast material Bella Cardenas 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: Start: 08-08-2024 Glucose measurement, blood Felicity Castellano MD Work Phone: Start: 08-08-2024 End: 08-08-2024 Glucose measurement, blood Felicity Castellano MD Work Phone: Start: 08-08-2024 Assay of magnesium Nase rin M Nadine 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: Start: 08-07-2024 Glucose measurement, blood Felicity Castellano MD Work Phone: Start: 08-07-2024 Glucose measurement, blood Felicity Castellano MD Work Phone: Start: 08-07-2024 Glucose measurement, blood Felicity Castellano MD Work Phone: Start: 08-07-2024 Glucose measurement, blood Felicity Castellano MD Work Phone: Start: 08-06-2024 Glucose measurement, blood Felicity Castellano MD Work Phone: Start: 08-06-2024 Assay of magnesium Nase rin M Nadine 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: Start: 08-06-2024 Glucose measurement, blood Felicity Castellano MD Work Phone: Start: 08-06-2024 Glucose measurement, blood Felicity Castellano MD Work Phone: Start: 08-06-2024 Radiologic exam swal low function contrast study Shanna Russ 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: Start: 08-06-2024 SPEECH MODIFIED KEAGAN UM SWALLOW Shanna Russ 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: Start: 08-06-2024 Glucose measurement, blood Felicity Castellano MD Work Phone: Start: 08-05-2024 Glucose measurement, blood Felicity Castellano MD Work Phone: Start: 08-05-2024 Assay of magnesium Nase rin M Nadine 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: Start: 08-05-2024 Glucose measurement, blood Felicity Castellano MD Work Phone: Start: 08-05-2024 Glucose measurement, blood Felicity Castellano MD Work Phone: Start: 08-05-2024 Echo tthrc r-t 2d w/wom-mode compl spec&colr d Taran Traore INFANT LEAD TEACHER-[facility] Work Phone: Start: 08-05-2024 Glucose measurement, blood Felicity Castellano MD Work Phone: Start: 08-05-2024 Assay of magnesium Abram Mccoy [facility] Work Phone: Start: 08-05-2024 Glucose measurement, blood Richard Mejia MD Work Phone: Start: 08-04-2024 Sodium serum plasma or whole blood Shanna Denise MD Work Phone: Start: 08-04-2024 Glucose measurement, blood Richard Mejia MD Work Phone: Start: 08-04-2024 Glucose measurement, blood Richard Mejia MD Work Phone: Start: 08-04-2024 Sodium serum plasma or whole blood Shanna Denise MD Work Phone: Start: 08-04-2024 Glucose measurement, blood Richard Mejia MD Work Phone: Start: 08-04-2024 Sodium serum plasma or whole blood Shanna Denise MD Work Phone: Start: 08-04-2024 Assay of magnesium Abram Mccoy INF[employer] LEAD TEACHER-[facility] Work Phone: Start: 08-04-2024 Glucose measurement, blood Richard Mejia MD Work Phone: Start: 08-03-2024 Ct head/brain w/o co ntrast material Shaila Méndez PA-C Start: 08-03-2024 Sodium serum plasma or whole blood Shanna Denise MD Work Phone: Start: 08-03-2024 Glucose measurement, blood Richard Mejia MD Work Phone: Start: 08-03-2024 Radiologic exam abdo men 1 view Balbir Mccoy 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: Start: 08-03-2024 Glucose measurement, blood Richard Mejia MD Work Phone: Start: 08-03-2024 Sodium serum plasma or whole blood Shanna Denise MD Work Phone: Start: 08-03-2024 Glucose measurement, blood Richard Mejia MD Work Phone: Start: 08-03-2024 Ct head/brain w/o co ntrast material Shaila L Ciupak PA-C Start: 08-03-2024 Glucose measurement, blood Richard Mejia MD Work Phone: Start: 08-03-2024 End: 08-03-2024 Mri brain brain stem w/o contrast material Tarannehemiah Traore 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: Start: 08-03-2024 ABORH TYPE RECONFIRMATION Cindy MONTANEZ Work Phone: Start: 08-03-2024 Assay of magnesium Abram Mccoy 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: Start: 08-02-2024 Glucose measurement, blood Prema Ramos MD Work Phone: Start: 08-02-2024 End: 08-02-2024 Radex humerus minimum 2 views Shaila L Ciupak PA-C Start: 08-02-2024 Ct angio abd&plvis c ntrst mtrl w/wo cntrst img Shaila L Ciupak PA-C Start: 08-02-2024 Ct angiography chest w/contrast/noncontrast Shaila L Ciupak PA-C Start: 08-02-2024 Ct orbit sella/post fossa/ear w/o contrast matrl Shaila L Ciupak PA-C Start: 08-02-2024 Ct cervical spine w/ o contrast material Shaila L Ciupak PA-C Start: 08-02-2024 Antibody screen Devyn Ramos MD Work Phone: Start: 08-02-2024 Antibody screen CHRISTOS VOSS Comment on above: Performed By: #### X M #### [facility] ([facility]) [address] [address] Start: 08-02-2024 EXTRA MICRO Taran Traore 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: Start: 08-02-2024 Hemoglobin glycosylated a1c Balbir Mccoy 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: Start: 08-02-2024 Hepatic function panel Balbir Mccoy 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: Start: 08-02-2024 Iadna s aureus ampli fied probe tq Balbir Mccoy 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: Start: 08-02-2024 URINALYSIS REFLEX TO CULTURE Taran Traore 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: Start: 08-02-2024 Urnls dip stick/tabl et reagent auto microscopy Taran Traore 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: Start: 08-02-2024 SARS-CoV-2, Influenz a & RSV (PCR) Dr. Kameron Caruso MD Work Phone: Start: 08-02-[address] Kameron Caruso MD Work Phone: Start: 08-02-2024 CT angiography of he ad and neck Dr. Kameron Caruso MD Work Phone: Start: 08-02-2024 CT of head without contrast Dr. Kameron Caruso MD Work Phone: Start: 05-31-2024 Ecg routine ecg w/le ast 12 lds i&r only [facility] Provider Start: 11-28-2023 Adult depression scr eening assessment Kameron Caruso MD Work Phone: Start: 11-05-2020 Adult depression scr eening assessment Kameron Caruso MD Work Phone: Start: 10-16-2019 [facility] ENDOSCOPY REPORT 3m Scanning Blepharoplasty SILVINO Garza DO Breast biopsy and re lated procedures SILVINO HA DO section SILVINO MARTINEZ DO Comment on above: X2 Colonoscopy SILVINO HA DO Extraction of cataract SILVINO HA DO Open reduction of fr acture with internal fixation SILVINO HA DO Comment on above: LEFT ARM Plan of Treatment Date Care Activity Detail Author Start: 08-15-2025 Complete blood count Hemoglobin/Hematocrit [facility] Start: 08-15-2025 Creatinine measurement Serum Creatinine [facility] Start: 08-02-2025 Thyroid stimulating hormone measurement [facility] Start: 06-26-2025 Annual PCP Team Chronic Disease Visit Annual PCP Team Chronic Disease Visit [facility] Start: 05-31-2025 Annual PCP Team Chronic Disease Visit Annual PCP Team Chronic Disease Visit [facility] Start: 05-31-2025 Covid-19 Vaccine ( season) Covid-19 Vaccine ( season) [facility] Comment on above: Postponed from 01/14/2024 (Declined at t his time) Start: 05-31-2025 Pneumococcal Vaccine: 50+ (2 of 2 - PPSV23) Pneumococcal Vaccine: 50+ (2 of 2 - PPSV23) [facility] Comment on above: Postponed from 12/19/2019 (Declined at t his time) Start: 05-23-2025 Creatinine measurement Serum Creatinine [facility] Start: 05-23-2025 Hepatitis B screening Urine Albumin:Creatinine Ratio [facility] Start: 05-23-2025 Hepatitis B surface antibody level LDL Cholesterol [facility] Start: 02-02-2025 Hemoglobin A1c [facility]C [facility] Start: 09-01-2025 Influenza vaccination [facility] Start: 01-03-2025 Glaucoma screening Dilated Retinal Exam [facility] Start: 12-24-2024 End: 12-24-2024 Patient encounter procedure 12/24/2024 9:20 AM EDT Office Visit [facility] [address] [place] [address] Kameron Caruso MD [address] [place] [id number] 6 month follow up [facility] Comment on above: 6 month follow up Start: 11-28-2024 End: 02-27-2025 Comprehensive metabolic 2000 panel - Serum or Plasma COMPREHENSIVE METABOLIC PANEL Lab Routine Essential hypertension, benign Chronic kidney disease, stage 3a (HCC) Hyperlipidemia, unspecified hyperlipidemia type Expected: 11/28/2024 (Approximate), Expires: 02/27/2025 [facility] Work Phone: Comment on above: Expected: 11/28/2024 (Approximate), Expi res: 02/27/2025 Start: 11-28-2024 End: 02-27-2025 Hemoglobin A1c in Blood HEMOGLOBIN A1C Lab Routine Expected: 11/28/2024 (Approximate), Expires: 02/27/[address] [facility] Comment on above: Expected: 11/28/2024 (Approximate), Expi res: 02/27/2025 Start: 11-28-2024 End: 02-27-2025 Lipid 1996 panel - Serum or Plasma LIPID PANEL BASIC Lab Routine Essential hypertension, benign Hyperlipidemia, unspecified hyperlipidemia type Expected: 11/28/2024 (Approximate), Expires: 02/27/[address] [facility] Comment on above: Expected: 11/28/2024 (Approximate), Expi res: 02/27/2025 Start: 11-28-2024 End: 02-27-2025 Thyrotropin [Units/volume] in Serum or Plasma THYROID STIMULATING HORMONE Lab Routine Hypothyroidism, unspecified type Expected: 11/28/2024 (Approximate), Expires: 02/27/[address] [facility] Comment on above: Expected: 11/28/2024 (Approximate), Expi res: 02/27/2025 Start: 11-27-2024 Annual PCP Team Chronic Disease Visit Annual PCP Team Chronic Disease Visit [facility] Start: 11-27-2024 Anxiety Screening Anxiety Screening [facility] Start: 11-27-2024 Depression Screening Depression Screening [facility] Start: 11-27-2024 RSV Vaccine (1 - 1-dose 60+ series) RSV Vaccine (1 - 1-dose 60+ series) [facility] Comment on above: Postponed from 2004 (Declined at t his time) Start: 11-27-2024 RSV Vaccine (1 - 1-dose 75+ series) RSV Vaccine (1 - 1-dose 75+ series) [facility] Comment on above: Postponed from 10/26/2019 (Declined at t his time) Start: 11-26-2024 Creatinine measurement Serum Creatinine [facility] Start: 11-26-2024 Hepatitis B surface antibody level LDL Cholesterol [facility] Start: 11-20-2024 Hemoglobin A1c measurement HbA1C [facility] Start: 11-11-2024 Influenza [facility] Comment on above: Postponed from 01/14/2024 (Declined at t his time) Start: 10-08-2024 End: 10-08-2024 ambulatory [facility] Start: 10-02-2024 Evaluation of diagnostic study results 12 Lead EKG performed by ROSE [facility] Start: 08-02-2024 [facility] Start: 08-02-2024 SARS-CoV-2, Influenza & RSV (PCR) SARS-CoV-2, Influenza & RSV (PCR) [facility] Start: 08-02-2024 End: 08-02-2024 [facility] Start: 08-02-2024 Electrocardiographic procedure [facility] Start: 08-02-2024 Oxygen therapy [facility] Start: 07-24-2024 End: 10-23-2024 Thyrotropin [Units/volume] in Serum or Plasma THYROID STIMULATING HORMONE Lab Routine Hypothyroidism, unspecified type Expected: 07/24/2024, Expires: 10/23/2024 [facility] Work Phone: Comment on above: Expected: 07/24/2024, Expires: Start: 07-24-2024 End: 10-23-2024 Thyroxine (T4) free [Mass/volume] in Serum or Plasma T4 FREE/FREE THYROXINE Lab Routine Hypothyroidism, unspecified type Expected: 07/24/2024, Expires: 10/23/[address] [facility] Comment on above: Expected: 07/24/2024, Expires: Start: 06-25-2024 End: 06-25-2024 Patient encounter procedure 06/25/2024 9:40 AM EST Office Visit Family [facility] [address] [place], [place] [id number] Kameron Caruso MD [address] [place] [address] 1 mo f/u, new dx afib. Family [facility] Comment on above: 1 mo f/u, new dx afib. Start: 06-11-2024 End: 06-11-2024 Patient encounter procedure 06/11/2024 8:50 AM EST Office Visit Cardiology [address] [place], [place] [id number] Atrial fibrillation, unspecified type (HCC) [I48.91] Cardiology Comment on above: Atrial fibrillation, unspecified type (H CC) [I48.91] Start: 05-30-2024 Annual PCP Team Chronic Disease Visit Annual PCP Team Chronic Disease Visit [facility] Start: 05-30-2024 End: 08-29-2024 Comprehensive metabolic 2000 panel - Serum or Plasma COMPREHENSIVE METABOLIC PANEL Lab Routine Type 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, unspecified CKD stage, unspecified whether group home insulin use (HCC) Essential hypertension, benign Chronic kidney disease, stage 3a (HCC) Hyperlipidemia, unspecified hyperlipidemia type Expected: 05/30/2024 (Approximate), Expires: 08/29/2024 [facility] Work Phone: Comment on above: Expected: 05/30/2024 (Approximate), Expi res: 08/29/2024 Start: 05-30-2024 Covid-19 Vaccine () Covid-19 Vaccine () [facility] Comment on above: Postponed from 01/13/2023 (Declined at t his time) Start: 05-30-2024 End: 08-29-2024 Hemoglobin A1c in Blood HEMOGLOBIN A1C Lab Routine Type 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, unspecified CKD stage, unspecified whether taker off braker machine insulin use (HCC) Expected: 05/30/2024 (Approximate), Expires: 08/29/[address] [facility] Comment on above: Expected: 05/30/2024 (Approximate), Expi res: 08/29/2024 Start: 05-30-2024 Hepatitis C screening Hepatitis C Screening [facility] Comment on above: Postponed from 1962 (Declined at t his time) Start: 05-30-2024 End: 08-29-2024 Lipid 1996 panel - Serum or Plasma LIPID PANEL BASIC Lab Routine Type 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, unspecified CKD stage, unspecified whether taker off braker machine insulin use (HCC) Essential hypertension, benign Hyperlipidemia, unspecified hyperlipidemia type Expected: 05/30/2024 (Approximate), Expires: 08/29/[address] [facility] Comment on above: Expected: 05/30/2024 (Approximate), Expi res: 08/29/2024 Start: 05-30-2024 End: 08-29-2024 Microalbumin/Creatinine [Mass Ratio] in Urine ALBUMIN/CREATININE RATIO, URINE Lab Routine Type 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, unspecified CKD stage, unspecified whether taker off braker machine insulin use (HCC) Expected: 05/30/2024 (Approximate), Expires: 08/29/[address] [facility] Comment on above: Expected: 05/30/2024 (Approximate), Expi res: 08/29/2024 Start: 05-30-2024 Pneumococcal Vaccine: 65+ (2 of 2 - PPSV23 or PCV20) Pneumococcal Vaccine: 65+ (2 of 2 - PPSV23 or PCV20) [facility] Comment on above: Postponed from 12/19/2019 (Declined at t his time) Start: 05-30-2024 End: 08-29-2024 Thyrotropin [Units/volume] in Serum or Plasma THYROID STIMULATING HORMONE Lab Routine Hypothyroidism, unspecified type Expected: 05/30/2024 (Approximate), Expires: 08/29/[address] [facility] Comment on above: Expected: 05/30/2024 (Approximate), Expi res: 08/29/2024 Start: 05-30-2024 End: 05-30-2024 Patient encounter procedure 05/30/2024 9:40 AM EST Office Visit Family [facility] [address] [place] [address] Kameron Caruso MD [address] [place] [address] 6 mo f/u Family [facility] Comment on above: 6 mo f/u Start: 05-29-2024 Hemoglobin A1c measurement [facility]C [facility] Start: 05-16-2024 Creatinine measurement Serum Creatinine [facility] Start: 05-16-2024 Hepatitis B screening Urine Albumin:Creatinine Ratio [facility] Start: 05-16-2024 Hepatitis B surface antibody level LDL Cholesterol [facility] Start: 05-15-2024 Advance Directive Discussion Advance Directive Discussion [facility] Start: 01-14-2024 Influenza vaccination [facility] Start: 01-14-2024 [facility] Start: 01-04-2024 Glaucoma screening Dilated Retinal Exam [facility] Start: 01-04-2024 Hepatitis C antibody, confirmatory test Dilated Retinal Exam [facility] Start: 11-28-2023 End: 11-28-2023 Patient encounter procedure 11/28/2023 9:40 AM EDT Office Visit Family [facility] [address] [place] [address] Kameron Caruso MD [address] [place] [address] 6 mo follow up Family [facility] Comment on above: 6 mo follow up Start: 11-26-2023 ANNUAL PCP TEAM CHRONIC DISEASE VISIT ANNUAL PCP TEAM CHRONIC DISEASE VISIT [facility] Start: 11-26-2023 BP CONTROLLED (<130/80) BP CONTROLLED (<130/80) [facility] Start: 11-23-2023 Complete blood count Hemoglobin/Hematocrit [facility] Start: 11-23-2023 HEMOGLOBIN/HEMATOCRIT HEMOGLOBIN/HEMATOCRIT [facility] Start: 11-23-2023 Hepatitis B surface antibody level LDL CHOLESTEROL [facility] Start: 11-23-2023 SERUM CREATININE SERUM CREATININE [facility] Start: 11-14-2023 Hemoglobin A1c measurement HbA1C [facility] Start: 05-27-2023 ANNUAL PCP TEAM CHRONIC DISEASE VISIT ANNUAL PCP TEAM CHRONIC DISEASE VISIT [facility] Start: 05-27-2023 COVID-19 VACCINE (2 - Booster for Alyssa series) COVID-19 VACCINE (2 - Booster for Alyssa series) [facility] Comment on above: Postponed from 09/17/2020 (Declined at t his time) Start: 05-27-2023 HEPATITIS C SCREENING HEPATITIS C SCREENING [facility] Comment on above: Postponed from 1962 (Declined at t his time) Start: 05-25-2023 Hemoglobin A1c/Hemoglobin.total in Blood HBA1C [facility] Start: 05-19-2023 HEMOGLOBIN/HEMATOCRIT HEMOGLOBIN/HEMATOCRIT [facility] Start: 05-19-2023 Hepatitis B surface antibody level LDL CHOLESTEROL [facility] Start: 05-19-2023 SERUM CREATININE SERUM CREATININE [facility] Start: 05-15-2023 Advance Directive Discussion Advance Directive Discussion [facility] Start: 05-15-2023 Behavioral Health Screening Behavioral Health Screening [facility] Start: 03-02-2023 ANNUAL PCP TEAM CHRONIC DISEASE VISIT ANNUAL PCP TEAM CHRONIC DISEASE VISIT [facility] Start: 01-13-2023 Covid-19 Vaccine ( season) Covid-19 Vaccine () [facility] Start: 01-13-2023 Influenza vaccination [facility] Start: 12-27-2022 Hepatitis C antibody, confirmatory test DILATED RETINAL EXAM [facility] Start: 11-24-2022 End: 01-24-2023 CBC panel - Blood by Automated count CBC Lab Routine Essential hypertension, benign Hypothyroidism, unspecified type Expected: 11/24/2022 (Approximate), Expires: 01/24/2023 [facility] Work Phone: Comment on above: Expected: 11/24/2022 (Approximate), Expi res: 01/24/2023 Start: 11-24-2022 End: 01-24-2023 Comprehensive metabolic 2000 panel - Serum or Plasma COMP METABOLIC PANEL Lab Routine Essential hypertension, benign Type 2 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, without long-term current use of insulin (HCC) Hyperlipidemia, unspecified hyperlipidemia type Expected: 11/24/2022 (Approximate), Expires: 01/24/2023 [facility] Work Phone: Comment on above: Expected: 11/24/2022 (Approximate), Expi res: 01/24/2023 Start: 11-24-2022 End: 01-24-2023 Hemoglobin A1c in Blood HGB A1C Lab Routine Type 2 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, without long-term current use of insulin (HCC) Expected: 11/24/2022 (Approximate), Expires: 01/24/2023 [facility] Work Phone: Comment on above: Expected: 11/24/2022 (Approximate), Expi res: 01/24/2023 Start: 11-24-2022 End: 01-24-2023 Lipid 1996 panel - Serum or Plasma LIPID PANEL BASIC Lab Routine Essential hypertension, benign Type 2 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, without long-term current use of insulin (HCC) Hyperlipidemia, unspecified hyperlipidemia type Expected: 11/24/2022 (Approximate), Expires: 01/24/2023 [facility] Work Phone: Comment on above: Expected: 11/24/2022 (Approximate), Expi res: 01/24/2023 Start: 11-24-2022 End: 01-24-2023 Thyrotropin [Units/volume] in Serum or Plasma TSH BLD Lab Routine Hypothyroidism, unspecified type Expected: 11/24/2022 (Approximate), Expires: 01/24/2023 [facility] Work Phone: Comment on above: Expected: 11/24/2022 (Approximate), Expi res: 01/24/2023 Start: 11-23-2022 3 comp foot exam completed [facility] Start: 11-23-2022 ANNUAL PCP TEAM CHRONIC DISEASE VISIT ANNUAL PCP TEAM CHRONIC DISEASE VISIT [facility] Start: 11-23-2022 Diabetic foot examination Diabetic Foot Exam [facility] Start: 11-20-2022 Hepatitis B screening URINE ALBUMIN:CREATININE RATIO [facility] Start: 11-20-2022 Hepatitis B surface antibody level LDL CHOLESTEROL [facility] Start: 11-20-2022 SERUM CREATININE SERUM CREATININE [facility] Start: 11-16-2022 Hemoglobin A1c/Hemoglobin.total in Blood HBA1C [facility] Start: 11-11-2022 Influenza vaccination INFLUENZA (#1) [facility] Comment on above: Postponed from 01/13/2022 (Declined at t his time) Start: 05-26-2022 End: 07-26-2022 CBC panel - Blood by Automated count CBC Lab Routine Essential hypertension, benign Stage 3b chronic kidney disease (HCC) Expected: 05/26/2022 (Approximate), Expires: 07/26/2022 [facility] Work Phone: Comment on above: Expected: 05/26/2022 (Approximate), Expi res: 07/26/2022 Start: 05-26-2022 End: 07-26-2022 Comprehensive metabolic 2000 panel - Serum or Plasma COMP METABOLIC PANEL Lab Routine Type 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, unspecified CKD stage, unspecified whether group home insulin use (HCC) Essential hypertension, benign Hyperlipidemia, unspecified hyperlipidemia type Stage 3b chronic kidney disease (HCC) Expected: 05/26/2022 (Approximate), Expires: 07/26/2022 [facility] Work Phone: Comment on above: Expected: 05/26/2022 (Approximate), Expi res: 07/26/2022 Start: 05-26-2022 End: 07-26-2022 Hemoglobin A1c in Blood HGB A1C Lab Routine Type 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, unspecified CKD stage, unspecified whether taker off braker machine insulin use (HCC) Expected: 05/26/2022 (Approximate), Expires: 07/26/2022 [facility] Work Phone: Comment on above: Expected: 05/26/2022 (Approximate), Expi res: 07/26/2022 Start: 05-26-2022 End: 07-26-2022 Lipid 1996 panel - Serum or Plasma LIPID PANEL BASIC Lab Routine Essential hypertension, benign Hyperlipidemia, unspecified hyperlipidemia type Expected: 05/26/2022 (Approximate), Expires: 07/26/2022 [facility] Work Phone: Comment on above: Expected: 05/26/2022 (Approximate), Expi res: 07/26/2022 Start: 05-26-2022 End: 07-26-2022 Thyrotropin [Units/volume] in Serum or Plasma TSH BLD Lab Routine Hypothyroidism, unspecified type Expected: 05/26/2022 (Approximate), Expires: 07/26/2022 [facility] Work Phone: Comment on above: Expected: 05/26/2022 (Approximate), Expi res: 07/26/2022 Start: 05-23-2022 Hemoglobin A1c/Hemoglobin.total in Blood HBA1C [facility] Start: 05-18-2022 ANNUAL PCP TEAM CHRONIC DISEASE VISIT ANNUAL PCP TEAM CHRONIC DISEASE VISIT [facility] Start: 05-17-2022 Hepatitis B surface antibody level LDL CHOLESTEROL [facility] Start: 05-17-2022 SERUM CREATININE SERUM CREATININE [facility] Start: 05-15-2022 ADVANCE DIRECTIVE DISCUSSION ADVANCE DIRECTIVE DISCUSSION [facility] Start: 01-13-2022 Influenza vaccination [facility] Start: 01-11-2022 Hepatitis C antibody, confirmatory test DILATED RETINAL EXAM [facility] Start: 11-14-2021 Hemoglobin A1c/Hemoglobin.total in Blood HBA1C [facility] Start: 11-06-2021 Screening for malignant neoplasm of breast [facility] Start: 11-05-2021 3 comp foot exam completed DIABETIC FOOT EXAM [facility] Start: 11-05-2021 Adult depression screening assessment DEPRESSION SCREENING [facility] Start: 11-04-2021 Hepatitis B screening URINE ALBUMIN:CREATININE RATIO [facility] Start: 10-15-2021 Hepa vaccine adult dose for intramuscular use HEPATITIS A VACCINE ADULT IM Immunization/Injection Routine Need for vaccination Expected: 10/15/2021 [facility] Work Phone: Comment on above: Expected: 10/15/2021 Start: 10-15-2021 Tdap vaccine 7 yrs/> im TDAP VACCINE AGE 7+ IM Immunization/Injection Routine Need for vaccination Expected: 10/15/2021 [facility] Work Phone: Comment on above: Expected: 10/15/2021 Start: 05-15-2021 ADVANCE DIRECTIVE DISCUSSION ADVANCE DIRECTIVE DISCUSSION [facility] Start: 05-15-2021 DEPRESSION ASSESSMENT DEPRESSION ASSESSMENT [facility] Start: 10-23-2020 PNEUMOCOCCAL: 65+ (2 - PPSV23 if available, else PCV20) PNEUMOCOCCAL: 65+ (2 - PPSV23 if available, else PCV20) [facility] Start: 10-23-2020 PNEUMOCOCCAL: 65+ (2 - PPSV23 or PCV20) PNEUMOCOCCAL: 65+ (2 - PPSV23 or PCV20) [facility] Start: 10-16-2020 HEMOGLOBIN/HEMATOCRIT HEMOGLOBIN/HEMATOCRIT [facility] Start: 09-17-2020 COVID-19 VACCINE (2 - Booster for Alyssa series) COVID-19 VACCINE (2 - Booster for Alyssa series) [facility] Start: 12-19-2019 Pneumococcal vaccination [facility] Start: 12-19-2019 Pneumococcal Vaccine: 65+ (2 - PPSV23 or PCV20) Pneumococcal Vaccine: 65+ (2 - PPSV23 or PCV20) [facility] Start: 12-19-2019 PNEUMOCOCCAL: 65+ (2 - PPSV23 or PCV20) PNEUMOCOCCAL: 65+ (2 - PPSV23 or PCV20) [facility] Start: 11-08-2019 Screening for malignant neoplasm of colon [facility] Start: 10-26-2019 [facility] Start: 01-13-2019 Influenza vaccination Flu vaccine (#1) [place], [place] Start: 12-23-2018 Annual Wellness Visit (AWV) Annual Wellness Visit (AWV) [place] Start: 2009 DEXA (modify frequency per FRAX score) DEXA (modify frequency per FRAX score) [place] Start: 2009 Pneumococcal 65+ years Vaccine (1 of 1 - PPSV23) Pneumococcal 65+ years Vaccine (1 of 1 - PPSV23) [place] Start: 2009 Pneumococcal 65+ years Vaccine (1 of 2 - PCV13) Pneumococcal 65+ years Vaccine (1 of 2 - PCV13) [place] Start: 10-26-2007 Annual Wellness Visit (AWV) Annual Wellness Visit (AWV) [place] Start: 2004 Hepatitis B Vaccine (1 of 3 - Risk 3-dose series) Hepatitis B Vaccine (1 of 3 - Risk 3-dose series) [facility] Start: 2004 RSV Vaccine (1 - 1-dose 60+ series) RSV Vaccine (1 - 1-dose 60+ series) [facility] Start: 10-26-1999 Screening for osteoporosis DEXA (modify frequency per FRAX score) [place] Start: 1994 Breast cancer screen Breast cancer screen [place], [place] Start: 1994 Colon cancer screen colonoscopy Colon cancer screen colonoscopy [place] Start: 1994 Screening for malignant neoplasm of breast Breast cancer screen [place] Start: 1994 Screening for malignant neoplasm of colon Colon cancer screen colonoscopy [place] Start: 1994 Shingles Vaccine (1 of 2) Shingles Vaccine (1 of 2) [place] Start: 1984 Lipid screen Lipid screen [place], [place] Start: 1965 Screening for malignant neoplasm of cervix [facility] Start: 10-26-1963 DTaP/Tdap/Td vaccine (1 - Tdap) DTaP/Tdap/Td vaccine (1 - Tdap) [place] Start: 10-26-1963 Third diphtheria, tetanus and acellular pertussis (DTaP) vaccination [facility] Start: 10-26-1963 Urine microalbumin profile [facility] Start: 1962 BP CONTROLLED (<130/80) BP CONTROLLED (<130/80) [facility] Start: 1962 HEPATITIS C SCREENING HEPATITIS C SCREENING [facility] Start: 1955 Lipid panel Lipid screen [place], [place] Start: 1944 Creatinine measurement Creatinine monitoring [place], [place] Start: 1944 Creatinine monitoring Creatinine monitoring [place], [place] Start: 1944 Hepatitis C screen Hepatitis C screen [place], [place] Start: 1944 Hepatitis C screening [facility] Start: 1944 Potassium monitoring Potassium monitoring [place], [place] Start: 1944 Screening for osteoporosis [facility] Start: 1944 Tetanus vaccination [facility] End: 01-09-2019 Blood glucose - POCT Blood glucose - POCT Point of Care Testing Routine One Time for 1 Occurrences starting 01/09/2019 until 01/09/2019 [facility] EMILI Comment on above: One Time for 1 Occurrences starting 12/14 until 01/09/2019 ECG COMPLETE [facility] Comment on above: Ordered: 05/31/2024 End: 05-31-2025 Echocardiography ECHO Cardiology Routine Atrial fibrillation, unspecified type (HCC) 1 Occurrences starting 05/31/2024 until 05/31/[address] [facility] Comment on above: 1 Occurrences starting 05/31/2024 until 05/31/2025 Patient referral [facility] Work Phone: End: 01-09-2019 Pulse Oximetry Spot Check Pulse Oximetry Spot Check Respiratory Care Routine One Time for 1 Occurrences starting 01/09/2019 until 01/09/2019 [facility] [employer] Comment on above: One Time for 1 Occurrences starting 12/14 until 01/09/2019 End: 08-02-2024 PV FLUOROSCOPY OR [facility] End: 08-02-2024 Standard ECG [facility] [place] [facility] Immunizations Immunization Date Immunization Notes Care Provider Fa [facility] 07-23-2020 SARS-CoV-2 (COVID-19 ) Ad26 vaccine, recombinant SILVINO HA DO [facility] Comment on above: Result Comment: 2024: [id number] 02-27-2020 influenza, high dose seasonal, preservative-free Kameron Caruso MD Work Phone: [facility] 02-27-2020 influenza virus vaccine, unspecified formulation Kameron Caruso MD Work Phone: [facility] 10-24-2019 pneumococcal conjuga te vaccine, 13 valent Kameron Caruso MD Work Phone: [facility] 10-24-2019 zoster vaccine recombinant Kameron Caruso MD Work Phone: [facility] 07-25-2019 influenza virus vaccine, unspecified formulation SILVINO HA DO [facility] 07-25-2019 influenza, seasonal, injectable Kameron Caruso MD Work Phone: [facility] 07-25-2019 zoster vaccine recombinant Kameron Caruso MD Work Phone: [facility] 04-13-2015 influenza virus vaccine, unspecified formulation SILVINO HA DO [facility] 05-01-2014 influenza virus vaccine, unspecified formulation SILVINO HA DO [facility] 05-01-2014 influenza, high dose seasonal, preservative-free Kameron Caruso MD Work Phone: [facility] 02-22-2012 influenza virus vaccine, unspecified formulation Kameron Caruso MD Work Phone: [facility] Work Phone: 03-19-2007 influenza virus vaccine, unspecified formulation Kameron Caruso MD Work Phone: [facility] Work Phone: Payers Date Payer Category Payer Medicare [id number] 2024 Unknown [id number] 2024 Self-pay 2018 Medicare [employer] RE ADVANTAGE [facility] x[facility]xx 2018-Present [phone] [address] [place] [address] xxxxxxxxxxx [id number] 2018 Unknown [id number] 2013 Medicare [place] [id number] 2013-Present [phone] [address] [place] [address] [facility] [id number] 2013 Medicare [id number] 2013 Medicare (Managed Care) 1.2. [id number] 2013 Medicare [id number] 1944 Unknown [id number] 1944 Unknown [id number] 1944 Unknown [id number] .594 1944 Unknown [id number] .594 1944 Unknown [id number] .627 Unknown [id number] .462 Unknown [id number] [id number] .462 Unknown [id number] [id number] .462 Unknown [id number] .462 Unknown [id number] .462 Unknown [id number] .462 Unknown [id number] [id number] .462 Unknown [id number] .462 Unknown [id number] .462 Unknown [id number] Social History Date Type Detail Facility Start: 01-09-2019 End: 08-02-2024 Tobacco smoking status NHIS Never smoker [facility] Start: 01-09-2019 End: 11-25-2022 Alcohol intake Never [facility] Work Phone: Start: 12-24-2018 History SDOH Alcohol [facility] Start: 1945 Sex Assigned At Not on file [facility] Start: 10-16-2019 Alcohol intake Lifetime non-d hortencia (finding) [place] Exposure to SARS-CoV -2 (event) [facility] Start: 05-18-2021 End: 06-26-2024 Alcohol intake Current non-drinker of alcohol (finding) [facility] Start: 11-13-2021 End: 03-02-2022 Exposure to SARS-CoV-2 (event) Not sure [facility] Start: 02-02-2011 End: 03-02-2022 Tobacco use and exposure Smokeless tobacco non-user [facility] Start: 11-25-2022 End: 11-28-2023 History of Social function [facility] Work Phone: Adult Depression Screening Assessment [address] [facility] Work Phone: Start: 06-22-2005 End: 08-02-2024 Sex Female (finding) [facility] Start: 1945 Sex Assigned At Female [facility] Sexual Orientation [facility] Medical Equipment Procedure Code Equipment Code Equipment Original Text Equipment Identifier Dates [id number], [id number], [id number] Start: 11-30-2020 End: 04-08-2023 Comment on above: Use to test sugars 1 times per day. Dx: E11.29. Insulin: No Test Blood Sugar one times daily Dx: E11.29 Insulin: No Test blood sugar(s) 1 times daily. Dx: Type 2 DM - Controlled E11.9 , Insulin: No Test blood sugars 1 time daily. Dx: Type 2 DM Controlled E11.9. Insulin: no Unknown Unknown 08/21/18 Unknown Unknown FDA Start: 08-21-2018 FDA Start: 08-21-2018 FDA Start: 08-21-2018 FDA Start: 08-21-2018 Functional Status Date Assessment Result Facility 09-09-2024 Functional Status Room check performed [facility] 09-09-2024 Functional Status [facility] 09-09-2024 Functional Status Skin Care Prev entative Intervention(s) heel(s)s elevated [facility] 09-08-2024 Functional Status [facility] 09-08-2024 Functional Status [facility] 09-06-2024 Functional Status 11pm-7am [facility] 09-06-2024 Functional Status Antiembolism S tocking On/Re-applied bilateral knee high [facility] 09-05-2024 Functional Status [facility] Care [facility] Functional Status [facility] 09-05-2024 Functional Status Done [facility] 09-04-2024 Functional Status [facility] 09-04-2024 Functional Status [facility] 09-03-2024 Functional Status NPO Status Maintained A maryamgonzalo [facility] 09-03-2024 Functional Status None [facility] 09-03-2024 Functional Status [facility] 08-29-2024 Functional Status [facility] 08-29-2024 [facility] Functional Status Orthotics, Dev ice Worn Per Schedule Yes [facility] 08-27-2024 Functional Status [facility] 08-26-2024 Functional Status [facility] 08-23-[facility] Functional Status [facility] 08-23-2024 Functional Status Breakfast Percent 25 [facility] 08-20-2024 Functional Status [facility] 08-19-2024 Functional Status [facility]-16-[facility] Functional Status Single level h ome, basement laundry [facility] 08-16-2024 Functional Status Outside Stairs Rail Rail on left going up [facility] 08-15-2024 Functional Status Sensory Defici ts Speech deficit [facility] 10-14-2014 Are you deaf, or do you have serious difficulty hearing No [facility] 10-14-2014 Are you blind, or do you have serious difficulty seeing, even when wearing glasses No [facility] 10-14-2014 Do you have serious difficulty walking or climbing stairs No [facility] 10-14-2014 Do you have difficul ty dressing or bathing No [facility] 10-14-2014 Because of a physica l, mental, or emotional condition, do you have difficulty doing errands alone such as visiting a physician's office or shopping No [facility] Mental Status Date Assessment Result Facility 09-09-2024 Mental Status Does not interact [facility] Bernardo stahl 09-08-2024 Mental Status [facility] Dyeepifanio wn 09-08-2024 Mental Status [facility] Dyein gregory 08-02-2024 Cognitive function Awake;Alert;F ollows [facility] Work Phone: 10-14-2014 Because of a physica l, mental, or emotional condition, do you have serious difficulty concentrating, remembering, or making decisions No [facility] Clinical Notes 11-03-2020 to 09-09-2024 Note Date & Type Note Facility 09-09-2024 Note Discharge Instructions Thank you for allowing [facility] to assist you with your healthcare needs. The following is important discharge information regarding your hospital visit. Your Care Team KAMERON CARUSO MD Your Diagnosis CVA (cerebral vascular accident) Diabetes mellitus Dysphagia Hyperlipidemia Hypertension Osteoarthritis What to do next Follow Up Appointments Follow Up with JONNIE BANSAL MD [facility] Additional Information: GI, No appointment needed until PEG is ready to be removed or concerns arise Follow Up with KAMERON CARUSO MD When:Within 3-7 days Where:[address] [place] [address]- Additional Information: Please schedule follow up PCP appointment for after discharge from SNF, Bring discharge instructions with you Follow Up with RIMMA POWERS MD When:10/08/2024 04:00 PM EDT Where[facility] ([address], [place]) Additional Information: Neurosurgeon The Following Activity and Diet Have Been Ordered for You Discharge Driving Restrictions - Ordered -- No driving permitted, 09/09/24 14:02:00 EDT Transfer of Care Activity - Ordered -- As instructed by therapy, Shower with assistance; Apply anti-embolism stockings on AM/off PM daily, this will help promote circulation; Incentive spirometer 10x every 2hr while awake, acapella device qshift; Seating cushion while sitting., 09/09/24 14... Transfer of Care Activity - Ordered -- Activity As Tolerated, Assist with all transfers and ambulation; OK to estim LUE; Continue to wear sling for comfort; Ok for cockup splint to left wrist PRN;, 09/09/24 14:02:00 EDT Transfer of Care Diet - Ordered -- Glucerna 1.2 Ruiz, Bolus feed, SLOWLY: 360mL at 0630, 240mL at 1230, 1530, 1830, 2130 with 100 free water flush after each bolus; HOLD BOLUS FEED FOR RESIDUAL >200, 09/09/24 14:02:00 EDT The Following Equipment Has Been Ordered for You Discharge Home Equipment Discharge Blood Glucose Monitoring - Ordered -- When to Test: *Other (specify in special instructions), TID at 0600, 1200, 2100 prior to bolus feed; Discharge Home Equipment - Ordered -- Wheelchair; light weight, Anti-tipping device Arm length, full Foot rest , standard left Foot rest , standard right Seat cushion, 99 month(s), [id number], 09/02/24 8:22:00 EDT Transfer of Care Wound Care - Ordered -- PEG Care: Cleanse area with normal saline or mild soap/water, pat dry, apply split gauze daily and as needed; PEG tube needs changed every 6 months, 09/09/24 14:02:00 EDT The Following Treatments Have Been Ordered for You Discharge Labs No qualifying data available. Discharge Radiology No qualifying data available. Other Therapies Discharge Blood Glucose Monitoring - Ordered -- When to Test: *Other (specify in special instructions), TID at 0600, 1200, 2100 prior to bolus feed; Transfer of Care OT - Ordered -- Reason for therapy: Eval and treat, 09/09/24 14:02:00 EDT Transfer of Care PT - Ordered -- Reason for therapy: Eval and treat, 09/09/24 14:02:00 EDT Transfer of Care Speech Therapy - Ordered -- Reason for therapy: Eval and treat, 09/09/24 14:02:00 EDT Post Acute Orders Transfer of Care Code Status - Ordered -- Full Code, Constant Order Transfer of Care Communication Order - Ordered -- Expect less than 30 day stay., 09/09/24 14:03:23 EDT Transfer of Care Orders Electronically Signed By - Ordered -- 09/09/24 14:02:00 EDT, NANDO HUTTON DO Transfer of Care Prognosis - Ordered -- Good, Patient Aware: Yes Transfer of Care Rehab Potential - Ordered -- Rehab potential good, 09/09/24 14:03:23 EDT Transfer of Care Skin Breakdown Prevention - Ordered -- When to Check Skin: Every two hours, Elevate your heels while in bed, turn and reposition yourself while in bed, redistribute your weight while sitting up; Report any skin changes you notice; LEFT PRAFO BOOT ON WHILE IN BED Transfer of Care Weight Order - Ordered -- When to Weigh: Monday, Report any changes of 2 lbs in 24 hours or 5 lbs in 1 week to your Physician. Someone Will Contact You Regarding These Home Health Referrals No home referrals have been ordered for you. No one will call you. Allergies Perfume cocaine nasal codeine Swelling of throat sulfa drugs Medications Please ask your primary doctor or pharmacist before taking any other medication not listed, including over the counter drugs, herbal medications, vitamins and or supplements as they may interact with your home medications. What How Much When Why Instructions Last Dose New acetaminophen (Tylenol 325 mg oral capsule) 650 Milligram PEG tube Every 4 hours as needed for Muscle pain New donepezil (Aricept 5 mg oral tablet) 1 tab(s) by mouth Daily at bedtime New fluconazole (Diflucan 100 mg oral tablet) 1 tab(s) PEG tube Once a day New insulin lispro (HumaLOG) (HumaLOG 100 units/ mL subcutaneous solution) Give 0-6 units/dose Subcutaneous Three (3) times a day before meals BG 120 -150 mg/dL Give:0 unit, BG 151-200 mg/dL Give: 1 unit, BG 201- 250 mg/dL Give: 2 units, BG 251 -300 mg/dL Give: 3 units, BG 301-350 mg/dL Give: 4 units, BG 351 -400 mg/dL Give: 5 units, BG 401- 450 mg/dL Give: 6 units, BG <70 > 450 Call Physician New methylphenidate (Ritalin 5 mg oral tablet) 1 tab(s) by mouth Two (2) times a day New methylphenidate (Ritalin 5 mg oral tablet) 1 tab(s) by mouth With breakfast & lunch CVA (cerebral vascular accident) Duration: 7 Days Printed Prescription Changed glimepiride (glimepiride 2 mg oral tablet) 2 tab(s) PEG tube Two (2) times a day Changed metFORMIN (metFORMIN 500 mg oral tablet (IR)) 1 tab(s) PEG tube Two (2) times a day Unchanged apixaban (apixaban 5 mg oral tablet) 1 tab(s) PEG tube Two (2) times a day Unchanged atorvastatin (atorvastatin 80 mg oral tablet) 1 tab(s) PEG tube Every day Unchanged levothyroxine 75 Microgram PEG tube Once a day Unchanged metoprolol (metoprolol tartrate 50 mg oral tablet) 1 tab(s) PEG tube Two (2) times a day What How Much When Comments Stop Taking aspirin (aspirin 81 mg oral delayed release tablet) 1 tab(s) by mouth Two (2) times a day Take 81 mg aspirin twice daily with food for 4 weeks postoperatively for DVT prophylaxis Stop Taking atenolol (atenolol 50 mg oral tablet) 1 tab(s) by mouth Every day Stop Taking cholecalciferol (Vitamin D3) 1,000 unit(s) by mouth Every day Stop Taking famotidine (Pepcid 20 mg oral tablet) 1 tab(s) by mouth Once a day Stop Taking glipiZIDE (glipiZIDE 10 mg oral tablet, extended release) 1 tab(s) by mouth Once a day with a meal Stop Taking glucose (glucose 40% oral gel ORAL syringe) 15 gram(s) PEG tube As Directed as needed for Low blood sugar low blood sugar Stop Taking lisinopril (lisinopril 10 mg oral tablet) 1 tab(s) PEG tube Once a day Stop Taking meloxicam (Mobic 7.5 mg oral tablet) 1 tab(s) by mouth Twice daily with meals Stop Taking ramipril (ramipril 10 mg oral capsule) 2 cap by mouth Once a day Please take this list to your next doctor s visit. Bring all medications you take, including over the counter medications, herbals and other supplements with you to your doctor s visit. Patients and families are reminded to discard old lists and to update any records with all medication providers or retail pharmacies. [facility] Discharge After a Stroke Being discharged from the hospital after a stroke can feel overwhelming. Many things may be different, and it is normal to feel scared or anxious. Some stroke survivors may be able to return to their homes, and others may need more specialized care on a temporary or permanent basis. Your stroke care team will work with you to develop a discharge plan that is best for you. Ask questions if you do not understand something. Invite a friend or family member to participate in discharge planning. Understanding and following your discharge plan can help to prevent another stroke or other problems. Understanding your medicines After a stroke, your health care provider may prescribe one or more types of medicine. It is important to take medicines exactly as told by your health care provider. Serious harm, such as another stroke, can happen if you are unable to take your medicine exactly as prescribed. Make sure you understand: What medicine to take. Why you are taking the medicine. How and when to take it. If it can be taken with your other medicines and herbal supplements. Possible side effects. When to call your health care provider if you have any side effects. How you will get and pay for your medicines. Medical assistance programs may be able to help you pay for prescription medicines if you cannot afford them. If you are taking an anticoagulant, be sure to take it exactly as told by your health care provider. This type of medicine can increase the risk of bleeding because it works to prevent blood from clotting. You may need to take certain precautions to prevent bleeding. You should contact your health care provider if you have: Bleeding or bruising. A fall or other injury to your head. Blood in your urine or stool (feces). Planning for home safety Take steps to prevent falls, such as installing grab bars or using a shower chair. Ask a friend or family member to get needed things in place before you go home if possible. A therapist can come to your home to make recommendations for safety equipment. Ask your health care provider if you would benefit from this service or from home care. Getting needed equipment Ask your health care provider for a list of any medical equipment and supplies you will need at home. These may include items such as: Walkers. Canes. Wheelchairs. Hand-strengthening devices. Special eating utensils. Medical equipment can be rented or purchased, depending on your insurance coverage. Check with your insurance company about what is covered. Keeping follow-up visits After a stroke, you will need to follow up regularly with a health care provider. You may also need rehabilitation, which can include physical therapy, occupational therapy, or speech-language therapy. Keeping these appointments is very important to your recovery after a stroke. Be sure to bring your medicine list and discharge papers with you to your appointments. If you need help to keep track of your schedule, use a calendar or appointment reminder. Preventing another stroke Having a stroke puts you at risk for another stroke in the future. Ask your health care provider what actions you can take to lower the risk. These may include: Increasing how much you exercise. Making a healthy eating plan. Quitting smoking. Managing other health conditions, such as high blood pressure, high cholesterol, or diabetes. Limiting alcohol use. Knowing the warning signs of a stroke Make sure you understand the signs of a stroke. Before you leave the hospital, you will receive information outlining the stroke warning signs. Share these with your friends and family members. "BE FAST" is an easy way to remember the main warning signs of a stroke: B - Balance. Signs are dizziness, sudden trouble walking, or loss of balance. E - Eyes. Signs are trouble seeing or a sudden change in vision. F - Face. Signs are sudden weakness or numbness of the face, or the face or eyelid drooping on one side. A - Arms. Signs are weakness or numbness in an arm. This happens suddenly and usually on one side of the body. S - Speech. Signs are sudden trouble speaking, slurred speech, or trouble understanding what people say. T - Time. Time to call emergency services. Write down what time symptoms started. Other signs of stroke may include: A sudden, severe headache with no known cause. Nausea or vomiting. Seizure. These symptoms may represent a serious problem that is an emergency. Do not wait to see if the symptoms will go away. Get medical help right away. Call your local emergency services (911 in the [place] Do not drive yourself to the hospital. Make note of the time that you had your first symptoms. Your emergency responders or emergency room staff will need to know this information. Summary Being discharged from the hospital after a stroke can feel overwhelming. It is normal to feel scared or anxious. Make sure you take medicines exactly as told by your health care provider. Know the warning signs of a stroke, and get help right way if you have any of these symptoms. "BE FAST" is an easy way to remember the main warning signs of a stroke. This information is not intended to replace advice given to you by your health care provider. Make sure you discuss any questions you have with your health care provider. Document Released: 08/04/2017 Document Revised: 05/04/2018 Document Reviewed: 08/04/2017 [employer] Patient Education 2020 Campus Diaries. Additional Information VACCINATE! IT SAVES LIVES! Members of the community who have not yet received the COVID-19 vaccine and would like to receive it can visit one of [facility] vaccine clinics. There are many vaccine clinic locations within the [facility]. For locations and available times, please visit [email or web address] [email or web address] It is important to note that some COVID mobile vaccine clinics are held outdoors and may be canceled in rainy or stormy conditions. To learn more about pediatric vaccinations (ages 5-11), we invite you to visit the [facility] webpage. [email or web address]/pages [email or web address] sked-Questions.html To learn more about the COVID-19 vaccine, we invite you to visit the CDC website for a list of frequently asked questions.https://www.cdc.gov/woodard virus/2019-ncov/vaccines/faq.html [facility] Patient Portal Access Instructions: Stay connected with your healthcare team and access your personal medical information anytime with the [facility] Patient Portal. Please follow the directions below to create your [facility] account: 1.Access the email account you provided upon registration to the hospital/physician office.2.Look for an invitation email from [facility].3.Open the email and access the invitation link: Accept Invitation to [facility].4.Fill in the required richards to create your account. To access your account, visit [email or web address]. Click the blue button labeled "Access Patient Portal" and then log in with the username and password that you created in the steps above. You will be able to view your test results, lab results, a summary of your visits, upcoming appointments and more. There is also a convenient messaging option where you can send secure messages to your provider. In addition, you will have the ability to download any documents or summaries to your computer and/or send the information securely to a physician. Remember that your healthcare information is confidential, so carefully consider who you will allow to register on the [facility] Patient Portal for access to your information. You can also access the [facility] Patient Portal on the [facility] dahlia. Simply click on "Patient Portal" and then log into your account. If you would like to receive a full copy of your medical records, please contact the [facility] Medical Records Department by calling [phone], Monday through Monday between 8 a.m. and 4:30 p.m. HOW TO SAFELY DISPOSE OF PRESCRIPTION MEDICATIONS Please use one of the following methods to safely dispose of your unused medications. 1.Use a drug disposal kit: the drug disposal pouch allows you to safely discard your old and unused drugs. Ask your nurse to give you one when you are discharged.2.Visit a local take-back location: Many local pharmacies and police departments have programs that collect old and unwanted prescription drugs. Call your local pharmacy or go to http://[employer].CrossFiber/1Y0Gi2y to find one close to you.3.Make use of household items: Use cat litter or old coffee grounds to dispose medications if other options are not available. Mix your drugs with these household products, seal them in an airtight container and throw it into the garbage. Call [facility]: [phone] to be sure your drugs can be disposed of in this way. Some medicines may require a different approach.4.Never flush your medications down the toilet. IF YOU HAVE BEEN PRESCRIBED AN OPIOID FOR PAIN If you have been prescribed an opioid (such as hydrocodone, oxycodone or morphine), it is critical to understand the possible side effects and risks of opioid pain medications. Even when taken as directed, opioids can have several side effects including: Tolerance, meaning you might need to take more of a medication for the same pain relief. Nausea, vomiting and/or constipation. Sleepiness, dizziness, dry mouth, confusion, depression or itching. Physical dependence, meaning you have withdrawal symptoms when a medication is stopped, can develop within a few days. KNOW YOUR RESPONSIBILITIES It is important to know exactly how much and how often to take the opioid pain medications you are prescribed. Never take opioids in higher amounts or more often than prescribed. Do not combine opioids with alcohol or other drugs that cause drowsiness, such as benzodiazepines, also known as benzos, including diazepam and alprazolam, muscle relaxants or sleep aids. Never sell or share prescription opioids. This is illegal. Store opioids in a secure place and out of reach of others (including children, family, friends and visitors). The last page of this document has been signed and retained as a CHART COPY. Signatures Patient [facility] Discharge After a Stroke Medication Leaflets My discharge plan and instructions have been reviewed and explained to me and I,LINDSAY ACUNA understand my current condition and have read and understand these discharge instructions. I have received a written copy of the plan/instructions. If I have questions, I am aware that I should contact my doctor. Patient/Table Operator Signature: ___ Date/Time: Relationship to Patient: _ Witness Name/Signature: Date/Time: Tyler Garcia 09-09-2024 Note Discharge Instructions Thank you for allowing [facility] to assist you with your healthcare needs. The following is important discharge information regarding your hospital visit. Your Care Team KAMERON CARUSO MD Your Diagnosis CVA (cerebral vascular accident) Diabetes mellitus Dysphagia Hyperlipidemia Hypertension Osteoarthritis What to do next Follow Up Appointments Follow Up with JONNIE BANSAL MD Where:[facility] Additional Information: GI, No appointment needed until PEG is ready to be removed or concerns arise Follow Up with KAMERON CARUSO MD When:Within 3-7 days Where:[address] [place] [address]- Additional Information: Please schedule follow up PCP appointment for after discharge from SNF, Bring discharge instructions with you Follow Up with RIMMA POWERS MD When:10/08/2024 04:00 PM EDT Where:[facility] ([address], [place]) Additional Information: Neurosurgeon The Following Activity and Diet Have Been Ordered for You Discharge Driving Restrictions - Ordered -- No driving permitted, 09/09/24 14:02:00 EDT Transfer of Care Activity - Ordered -- As instructed by therapy, Shower with assistance; Apply anti-embolism stockings on AM/off PM daily, this will help promote circulation; Incentive spirometer 10x every 2hr while awake, acapella device qshift; Seating cushion while sitting., 09/09/24 14... Transfer of Care Activity - Ordered -- Activity As Tolerated, Assist with all transfers and ambulation; OK to estim LUE; Continue to wear sling for comfort; Ok for cockup splint to left wrist PRN;, 09/09/24 14:02:00 EDT Transfer of Care Diet - Ordered -- Glucerna 1.2 Ruiz, Bolus feed, SLOWLY: 360mL at 0630, 240mL at 1230, 1530, 1830, 2130 with 100 free water flush after each bolus; HOLD BOLUS FEED FOR RESIDUAL >200, 09/09/24 14:02:00 EDT The Following Equipment Has Been Ordered for You Discharge Home Equipment Discharge Blood Glucose Monitoring - Ordered -- When to Test: *Other (specify in special instructions), TID at 0600, 1200, 2100 prior to bolus feed; Discharge Home Equipment - Ordered -- Wheelchair; light weight, Anti-tipping device Arm length, full Foot rest , standard left Foot rest , standard right Seat cushion, 99 month(s), [facility] [id number], 09/02/24 8:22:00 EDT Transfer of Care Wound Care - Ordered -- PEG Care: Cleanse area with normal saline or mild soap/water, pat dry, apply split gauze daily and as needed; PEG tube needs changed every 6 months, 09/09/24 14:02:00 EDT The Following Treatments Have Been Ordered for You Discharge Labs No qualifying data available. Discharge Radiology No qualifying data available. Other Therapies Discharge Blood Glucose Monitoring - Ordered -- When to Test: *Other (specify in special instructions), TID at 0600, 1200, 2100 prior to bolus feed; Transfer of Care OT - Ordered -- Reason for therapy: Eval and treat, 09/09/24 14:02:00 EDT Transfer of Care PT - Ordered -- Reason for therapy: Eval and treat, 09/09/24 14:02:00 EDT Transfer of Care Speech Therapy - Ordered -- Reason for therapy: Eval and treat, 09/09/24 14:02:00 EDT Post Acute Orders Transfer of Care Code Status - Ordered -- Full Code, Constant Order Transfer of Care Communication Order - Ordered -- Expect less than 30 day stay., 09/09/24 14:03:23 EDT Transfer of Care Orders Electronically Signed By - Ordered -- 09/09/24 14:02:00 EDT, NANDO HUTTON DO Transfer of Care Prognosis - Ordered -- Good, Patient Aware: Yes Transfer of Care Rehab Potential - Ordered -- Rehab potential good, 09/09/24 14:03:23 EDT Transfer of Care Skin Breakdown Prevention - Ordered -- When to Check Skin: Every two hours, Elevate your heels while in bed, turn and reposition yourself while in bed, redistribute your weight while sitting up; Report any skin changes you notice; LEFT PRAFO BOOT ON WHILE IN BED Transfer of Care Weight Order - Ordered -- When to Weigh: Monday, Report any changes of 2 lbs in 24 hours or 5 lbs in 1 week to your Physician. Someone Will Contact You Regarding These Home Health Referrals No home referrals have been ordered for you. No one will call you. Allergies Perfume cocaine nasal codeine Swelling of throat sulfa drugs Medications Please ask your primary doctor or pharmacist before taking any other medication not listed, including over the counter drugs, herbal medications, vitamins and or supplements as they may interact with your home medications. What How Much When Instructions Last Dose New acetaminophen (Tylenol 325 mg oral capsule) 650 Milligram PEG tube Every 4 hours as needed for Muscle pain New donepezil (Aricept 5 mg oral tablet) 1 tab(s) by mouth Daily at bedtime New fluconazole (Diflucan 100 mg oral tablet) 1 tab(s) PEG tube Once a day New insulin lispro (HumaLOG) (HumaLOG 100 units/ mL subcutaneous solution) Give 0-6 units/dose Subcutaneous Three (3) times a day before meals BG 120 -150 mg/dL Give: 0 unit, BG 151- 200 mg/dL Give: 1 unit, BG 201- 250 mg/dL Give: 2 units, BG 251- 300 mg/dL Give: 3 units, BG 301 -350 mg/dL Give: 4 units, BG 351- 400 mg/dL Give: 5 units, BG 401 - 450 mg/dL Give: 6 units, BG <70 > 450 Call Physician New methylphenidate (Ritalin 5 mg oral tablet) 0.5 tab(s) by mouth With breakfast & lunch Changed glimepiride (glimepiride 2 mg oral tablet) 2 tab(s) PEG tube Two (2) times a day Changed metFORMIN (metFORMIN 500 mg oral tablet (IR)) 1 tab(s) PEG tube Two (2) times a day Unchanged apixaban (apixaban 5 mg oral tablet) 1 tab(s) PEG tube Two (2) times a day Unchanged atorvastatin (atorvastatin 80 mg oral tablet) 1 tab(s) PEG tube Every day Unchanged levothyroxine 75 Microgram PEG tube Once a day Unchanged metoprolol (metoprolol tartrate 50 mg oral tablet) 1 tab(s) PEG tube Two (2) times a day What How Much When Comments Stop Taking aspirin (aspirin 81 mg oral delayed release tablet) 1 tab(s) by mouth Two (2) times a day Take 81 mg aspirin twice daily with food for 4 weeks postoperatively for DVT prophylaxis Stop Taking atenolol (atenolol 50 mg oral tablet) 1 tab(s) by mouth Every day Stop Taking cholecalciferol (Vitamin D3) 1,000 unit(s) by mouth Every day Stop Taking famotidine (Pepcid 20 mg oral tablet) 1 tab(s) by mouth Once a day Stop Taking glipiZIDE (glipiZIDE 10 mg oral tablet, extended release) 1 tab(s) by mouth Once a day with a meal Stop Taking glucose (glucose 40% oral gel ORAL syringe) 15 gram(s) PEG tube As Directed as needed for Low blood sugar low blood sugar Stop Taking lisinopril (lisinopril 10 mg oral tablet) 1 tab(s) PEG tube Once a day Stop Taking meloxicam (Mobic 7.5 mg oral tablet) 1 tab(s) by mouth Twice daily with meals Stop Taking ramipril (ramipril 10 mg oral capsule) 2 cap by mouth Once a day Please take this list to your next doctor s visit. Bring all medications you take, including over the counter medications, herbals and other supplements with you to your doctor s visit. Patients and families are reminded to discard old lists and to update any records with all medication providers or retail pharmacies. [facility] Discharge After a Stroke Being discharged from the hospital after a stroke can feel overwhelming. Many things may be different, and it is normal to feel scared or anxious. Some stroke survivors may be able to return to their homes, and others may need more specialized care on a temporary or permanent basis. Your stroke care team will work with you to develop a discharge plan that is best for you. Ask questions if you do not understand something. Invite a friend or family member to participate in discharge planning. Understanding and following your discharge plan can help to prevent another stroke or other problems. Understanding your medicines After a stroke, your health care provider may prescribe one or more types of medicine. It is important to take medicines exactly as told by your health care provider. Serious harm, such as another stroke, can happen if you are unable to take your medicine exactly as prescribed. Make sure you understand: What medicine to take. Why you are taking the medicine. How and when to take it. If it can be taken with your other medicines and herbal supplements. Possible side effects. When to call your health care provider if you have any side effects. How you will get and pay for your medicines. Medical assistance programs may be able to help you pay for prescription medicines if you cannot afford them. If you are taking an anticoagulant, be sure to take it exactly as told by your health care provider. This type of medicine can increase the risk of bleeding because it works to prevent blood from clotting. You may need to take certain precautions to prevent bleeding. You should contact your health care provider if you have: Bleeding or bruising. A fall or other injury to your head. Blood in your urine or stool (feces). Planning for home safety Take steps to prevent falls, such as installing grab bars or using a shower chair. Ask a friend or family member to get needed things in place before you go home if possible. A therapist can come to your home to make recommendations for safety equipment. Ask your health care provider if you would benefit from this service or from home care. Getting needed equipment Ask your health care provider for a list of any medical equipment and supplies you will need at home. These may include items such as: Walkers. Canes. Wheelchairs. Hand-strengthening devices. Special eating utensils. Medical equipment can be rented or purchased, depending on your insurance coverage. Check with your insurance company about what is covered. Keeping follow-up visits After a stroke, you will need to follow up regularly with a health care provider. You may also need rehabilitation, which can include physical therapy, occupational therapy, or speech-language therapy. Keeping these appointments is very important to your recovery after a stroke. Be sure to bring your medicine list and discharge papers with you to your appointments. If you need help to keep track of your schedule, use a calendar or appointment reminder. Preventing another stroke Having a stroke puts you at risk for another stroke in the future. Ask your health care provider what actions you can take to lower the risk. These may include: Increasing how much you exercise. Making a healthy eating plan. Quitting smoking. Managing other health conditions, such as high blood pressure, high cholesterol, or diabetes. Limiting alcohol use. Knowing the warning signs of a stroke Make sure you understand the signs of a stroke. Before you leave the hospital, you will receive information outlining the stroke warning signs. Share these with your friends and family members. "BE FAST" is an easy way to remember the main warning signs of a stroke: B - Balance. Signs are dizziness, sudden trouble walking, or loss of balance. E - Eyes. Signs are trouble seeing or a sudden change in vision. F - Face. Signs are sudden weakness or numbness of the face, or the face or eyelid drooping on one side. A - Arms. Signs are weakness or numbness in an arm. This happens suddenly and usually on one side of the body. S - Speech. Signs are sudden trouble speaking, slurred speech, or trouble understanding what people say. T - Time. Time to call emergency services. Write down what time symptoms started. Other signs of stroke may include: A sudden, severe headache with no known cause. Nausea or vomiting. Seizure. These symptoms may represent a serious problem that is an emergency. Do not wait to see if the symptoms will go away. Get medical help right away. Call your local emergency services (911 in the [place] Do not drive yourself to the hospital. Make note of the time that you had your first symptoms. Your emergency responders or emergency room staff will need to know this information. Summary Being discharged from the hospital after a stroke can feel overwhelming. It is normal to feel scared or anxious. Make sure you take medicines exactly as told by your health care provider. Know the warning signs of a stroke, and get help right way if you have any of these symptoms. "BE FAST" is an easy way to remember the main warning signs of a stroke. This information is not intended to replace advice given to you by your health care provider. Make sure you discuss any questions you have with your health care provider. Document Released: 08/04/2017 Document Revised: 05/04/2018 Document Reviewed: 08/04/2017 [employer] Patient Education 2020 Campus Diaries. Additional Information VACCINATE! IT SAVES LIVES! Members of the community who have not yet received the COVID-19 vaccine and would like to receive it can visit one of [facility] vaccine clinics. There are many vaccine clinic locations within the [facility]. For locations and available times, please visit [email or web address] [email or web address] It is important to note that some COVID mobile vaccine clinics are held outdoors and may be canceled in rainy or stormy conditions. To learn more about pediatric vaccinations (ages 5-11), we invite you to visit the [facility] webpage. [email or web address] [email or web address] To learn more about the COVID-19 vaccine, we invite you to visit the CDC website for a list of frequently asked questions.https://www.cdc.gov/woodard virus/2019-ncov/vaccines/faq.html [facility] Patient Portal Access Instructions: Stay connected with your healthcare team and access your personal medical information anytime with the [facility] Patient Portal. Please follow the directions below to create your [facility] account: 1.Access the email account you provided upon registration to the hospital/physician office.2.Look for an invitation email from [facility].3.Open the email and access the invitation link: Accept Invitation to [facility].4.Fill in the required richards to create your account. To access your account, visit [email or web address]. Click the blue button labeled "Access Patient Portal" and then log in with the username and password that you created in the steps above. You will be able to view your test results, lab results, a summary of your visits, upcoming appointments and more. There is also a convenient messaging option where you can send secure messages to your provider. In addition, you will have the ability to download any documents or summaries to your computer and/or send the information securely to a physician. Remember that your healthcare information is confidential, so carefully consider who you will allow to register on the [facility] Patient Portal for access to your information. You can also access the [facility] Patient Portal on the [facility] dahlia. Simply click on "Patient Portal" and then log into your account. If you would like to receive a full copy of your medical records, please contact the [facility] Medical Records Department by calling [phone], Monday through Monday between 8 a.m. and 4:30 p.m. HOW TO SAFELY DISPOSE OF PRESCRIPTION MEDICATIONS Please use one of the following methods to safely dispose of your unused medications. 1.Use a drug disposal kit: the drug disposal pouch allows you to safely discard your old and unused drugs. Ask your nurse to give you one when you are discharged.2.Visit a local take-back location: Many local pharmacies and police departments have programs that collect old and unwanted prescription drugs. Call your local pharmacy or go to http://bit.CrossFiber/5H8Ua8t to find one close to you.3.Make use of household items: Use cat litter or old coffee grounds to dispose medications if other options are not available. Mix your drugs with these household products, seal them in an airtight container and throw it into the garbage. Call [facility]: [phone] to be sure your drugs can be disposed of in this way. Some medicines may require a different approach.4.Never flush your medications down the toilet. IF YOU HAVE BEEN PRESCRIBED AN OPIOID FOR PAIN If you have been prescribed an opioid (such as hydrocodone, oxycodone or morphine), it is critical to understand the possible side effects and risks of opioid pain medications. Even when taken as directed, opioids can have several side effects including: Tolerance, meaning you might need to take more of a medication for the same pain relief. Nausea, vomiting and/or constipation. Sleepiness, dizziness, dry mouth, confusion, depression or itching. Physical dependence, meaning you have withdrawal symptoms when a medication is stopped, can develop within a few days. KNOW YOUR RESPONSIBILITIES It is important to know exactly how much and how often to take the opioid pain medications you are prescribed. Never take opioids in higher amounts or more often than prescribed. Do not combine opioids with alcohol or other drugs that cause drowsiness, such as benzodiazepines, also known as benzos, including diazepam and alprazolam, muscle relaxants or sleep aids. Never sell or share prescription opioids. This is illegal. Store opioids in a secure place and out of reach of others (including children, family, friends and visitors). The last page of this document has been signed and retained as a CHART COPY. Signatures Patient [facility] Discharge After a Stroke Medication Leaflets My discharge plan and instructions have been reviewed and explained to me and I,LINDSAY ACUNA understand my current condition and have read and understand these discharge instructions. I have received a written copy of the plan/instructions. If I have questions, I am aware that I should contact my doctor. Patient/Table Operator Signature: ___ Date/Time: Relationship to Patient: _ Witness Name/Signature: Date/Time: Tyler Garcia 09-09-2024 Physical medicine and rehab Discharge summary Date of Service 09/09/2024 Discharge Diagnosis 1 - CVA (cerebral vascular accident) (I63.9 - ICD-10-CM) 2 - Diabetes mellitus (E11.9 - ICD-10-CM) 3 - Dysphagia (R13.10 - ICD-10-CM) 4 - Hyperlipidemia (E78.5 - ICD-10-CM) 5 - Hypertension (I10 - ICD-10-CM) 6 - Osteoarthritis (M19.90 - ICD-10-CM) Hospital Course 78-year-old female seen today in discharge valuation. She was admitted to [facility] inpatient rehab unit from [facility] stay 08/02 - 08/15 who has a history of CAD, DM2, atrial fibrillation and hypertension who presented to the ER after noting left-sided weakness and slurred speech. Originally presented to [facility] where CT head was obtained showing no acute hemorrhage or large territory stroke. CTA showing mid right M1 occlusion, patient was not a TNK candidate. Patient was transferred to [facility]. On 08/02 patient underwent thrombectomy with NSGY with TICI 2B revascularization. CT head showing acute right basal ganglia hemorrhage with surrounding mass effect and midline shift. 08/06 patient did fail modified barium swallow with speech therapy following. On 08/01 7 GI was consulted and on 08/09 a PEG tube was placed. Patient was also noted to be more drowsy and repeat CT of head was obtained showing no significant change with evolving changes of the right basal ganglia infarct and petechial hemorrhage with stable mass effect and midline shift. MRI of the brain obtained showing hemorrhage infarct involving right basal ganglia and surrounding edema, mass effect with effacement right lateral ventricle and midline shift to the left with tiny infarct in the right cerebellum Patient admitted for acute rehabilitation with physical occupational and speech therapy services. Gait and mobility. ADL self-care strengthening. Rehab nursing social diet attrition and medical management of comorbidities. Medically she was managed for right basal ganglia hemorrhagic stroke diabetes mellitus hyperlipidemia hypertension osteoarthritis. Medically he is on anticoagulation Eliquis. Lipitor. She was seen by the wound center nurse practitioner skin integrity per protocol provided Venelex lotion. Aricept daily glimepiride Humalog levothyroxine metformin. Ritalin initiated and dose increased to 5 mg twice daily due to persistent hypersomnolence and fatigue. She is on metoprolol twice daily. She was to follow-up with gastroenterology as well as neurosurgery. Remain n.p.o. on Glucerna 1.2 bolus 6 times a day. She was seen by neuropsychology discussing premorbid dementia concerns severe cognitive and memory deficits noted. Patient made slow steady progress throughout her rehab stay. Initial plan is for home with spouse. Due to the fact had persistence of mod a substantial mobility and self-care assistance needs decision made to request [facility] facility. Approval is requested. Patient was to follow-up with gastroenterology regarding PEG tube removal at LOC at discharge. Repeat head CT was performed due to persistent some somnolence with resolving basal ganglia stroke noted. Admit functional status was mod was substantial to dependent. Discharge functional status mod substantial. Rehab nursing needs included cardiopulmonary monitoring, pain management, wound care, bowel bladder program, Patient was discussed weekly team staff with regards to goals plan of care and length of stay. Patient and family education were ongoing during hospital stay. Skin was inspected on a regular basis. Medication list reviewed Allergies Perfume cocaine nasal codeine Swelling of throat sulfa drugs Consults Consult to Physician - Ordered -- 08/15/24 17:18:00 EDT, NANDO HUTTON DO, Routine, Medical Management Consult to Physician (Physician Consult) - Ordered -- 08/20/24 11:32:00 EDT, MATTHEW GIBSON PhD, Routine, Cognition Consult to Physician (Physician Consult) - Ordered -- 09/03/24 11:34:00 EDT, CHEVY SLATER MD, Routine, somnolenceHypertension Consult to Wound Center Physician (Consult to Wound Care Services) - Ordered -- 08/15/24 17:18:00 EDT, AMI HEATON APRN-[employer], Skin Integrity per policy Physical Exam Vitals and Measurements T: 36.0 C (Temporal Artery) TMIN: 36.0 C (Temporal Artery) TMAX: 36.6 C (Temporal Artery) HR: 100 (Apical) RR: 16 BP: 122/78 SpO2: 90% Weight Dosing Weight: 76 kg (08/26/24) Dosing Weight: 75.3 kg (08/19/24) General Appearance: Alert and oriented 3 no apparent distress Head: Normocephalic no evidence of trauma EENT: Pupils equal and reactive to light and accommodation no erythema. Ears with no external lesions or discharge. Nose clear nares patent no discharge. Throat normal healthy dentition no redness or erythema. Neck: Trachea midline. No lymphatic adenopathy Cardiac: Regular rate and rhythm, no rubs or murmurs Lungs: Clear to auscultation, no adventitious sounds, good aeration Abdomen: Soft nontender no organomegaly or rebound positive bowel sounds Musculoskeletal: Intact range of motion no erythema no polyarthritic changes Extremities: No edema. Negative Homans sign Neurological: Hypersomnolent. Weakness left worse than right. Skin: Intact without rashes or erythema Psychiatric: Mood good. No anxiety depression Medication list reviewed Therapy notes reviewed Code Status Code Status - Ordered -- 08/15/24 17:18:00 EDT, Full Code, Constant Order Admission Date 08/15/2024 Discharge Date 09/09/2024 Medications New Prescription acetaminophen (Tylenol 325 mg oral capsule)650 Milligram PEG tube every 4 hours as needed Muscle pain. donepezil (Aricept 5 mg oral tablet)1 tab(s) by mouth daily at bedtime. fluconazole (Diflucan 100 mg oral tablet)1 tab(s) PEG tube once a day. insulin lispro (HumaLOG) (HumaLOG 100 units/mL subcutaneous solution)Give 0-6 units/dose Subcutaneous three (3) times a day before meals. methylphenidate (Ritalin 5 mg oral tablet)0.5 tab(s) by mouth with breakfast & lunch. Changed glimepiride (glimepiride 2 mg oral tablet)2 tab(s) PEG tube two (2) times a day. metFORMIN (metFORMIN 500 mg oral tablet (IR))1 tab(s) PEG tube two (2) times a day. Unchanged apixaban (apixaban 5 mg oral tablet)1 tab(s) PEG tube two (2) times a day. atorvastatin (atorvastatin 80 mg oral tablet)1 tab(s) PEG tube every day. [id number] Microgram PEG tube once a day. metoprolol (metoprolol tartrate 50 mg oral tablet)1 tab(s) PEG tube two (2) times a day. Discontinued aspirin (aspirin 81 mg oral delayed release tablet)1 tab(s) by mouth two (2) times a day. Take 81 mg aspirin twice daily with food for 4 weeks postoperatively for DVT prophylaxis. Refills: 0. atenolol (atenolol 50 mg oral tablet)1 tab(s) by mouth every day. cholecalciferol (Vitamin D3)1,000 unit(s) by mouth every day. famotidine (Pepcid 20 mg oral tablet)1 tab(s) by mouth once a day. Refills: 0. glipiZIDE (glipiZIDE 10 mg oral tablet, extended release)1 tab(s) by mouth once a day with a meal. glucose (glucose 40% oral gel ORAL syringe)15 gram(s) PEG tube As Directed as needed Low blood sugar low blood sugar. lisinopril (lisinopril 10 mg oral tablet)1 tab(s) PEG tube once a day. meloxicam (Mobic 7.5 mg oral tablet)1 tab(s) by mouth twice daily with meals. Refills: 0. ramipril (ramipril 10 mg oral capsule)2 cap by mouth once a day. Follow Up Follow Up with JONNIE BANSAL MD Where:[facility] Additional Information: GI, No appointment needed until PEG is ready to be removed or concerns arise Follow Up with KAMERON CARUSO MD When:Within 3-7 days Where:[address] [place] [address]- Additional Information: Please schedule follow up PCP appointment for after discharge from SNF, Bring discharge instructions with you Follow Up with RIMMA POWERS MD When:10/08/2024 04:00 PM EDT Where:[facility] ([address], [place]) Additional Information: Neurosurgeon Follow Up Appointments No qualifying data available. Follow Up Labs/Studies Discharge Labs No Follow-up Labs Discharge Studies No Follow-up Studies Discharge Diet No qualifying data available. Discharge Activity No qualifying data available. Condition on Discharge Stable Discharge Disposition [facility] facility Information Provided To Patient and family Time Spent Greater than 35 minutes Digitally Signed by SILVINO HA DO on 09/09/2024 01:46 PM Tyler Garcia 09-09-2024 Nurse Progress note Nursing GG Entered On: 09/09/2024 10:55 EDT Performed On: 09/09/2024 10:55 EDT by Abigail Rodas RN Nursing GG's OT GG Grid Eating : Not Completed Abigail Rodas RN - 09/09/2024 10:55 EDT Digitally Signed by Abigail Rodas RN on 09/09/2024 10:55 AM [facility] 09-08-2024 Nurse Progress note Nursing GG Entered On: 09/08/2024 17:39 EDT Performed On: 09/08/2024 17:39 EDT by Rob Alarcon RN Nursing GG's OT GG Grid Eating : Not Completed Oral Hygiene : Not Completed Toilet Hygiene : Substantial/Maximal Assistance Toilet Transfer : Substantial/Maximal Assistance Rob Alarcon RN - 09/08/2024 17:39 EDT Digitally Signed by Rob Alarcon RN on 09/08/2024 05:39 PM [facility] 09-08-2024 Nurse Progress note Pt had 250ml residual, 12:30pm bolus was held! Digitally Signed by Rob Alarcon RN on 09/08/2024 12:47 PM [facility] Physical medicine and rehab Progress note Rehab Note Chief Complaint: Seeing this patient for reevaluation of therapy progress CVA, lethargy, and dysphagia History of Present Illness: Seeing this patient for reevaluation of therapy progress and CVA. Patient participates in acute inpatient rehabilitation with PT, OT and ST services. 78-year-old female who is past medical history of coronary artery disease, diabetes mellitus type 2, atrial relation, hypertension, osteoarthritis, and hyperlipidemia who presented to the emergency room with noted left-sided weakness and slurred speech. She originally presented to [facility] with CT of the head was obtained showed no acute hemorrhage or large territory stroke. CTA showed mid right M1 occlusion however patient was not a TNK candidate. She was then transferred to a [facility] for further management. CT of head showed acute right basal ganglia hemorrhage with surrounding mass effect and midline shift. On 08/02 underwent thrombectomy with NSGY with FABIAN ICI TB revascularization. Postoperatively she did fail her modified barium swallow on 08/06. On 08/01 7 GI was consulted and PEG tube was placed on 08/08. Stay was then complicated by increased fatigue and drowsiness. Repeat CT of head obtained showed no significant change with evolving changes of right basal ganglia infarct and petechial hemorrhage with stable mass effect or midline shift. MRI of the brain obtained showing hemorrhagic infarct involving the right basal ganglia and surrounding edema, mass effect with effacement of right lateral ventricle and midline shift to left with tiny infarct in right cerebellum. TTE performed showed ejection ration of 65-70%, hemoglobin A1c found to be 7.8%. Urine was obtained in was positive for urinary tract infection. Initiated on ceftriaxone for culture, infection and Klebsiella. EGD was completed showed none bleeding gastric ulcer and erosive gastroscopy. Aspirin was continued at that time and home Eliquis was initiated 5 mg twice daily. Home oxybutynin held on discharge. PEG tube remains in place and receiving continuous feedings. Today, patient is stable monitoring with therapy. reports she is alert and more awake this morning. States that she did try to get out of bed overnight and appeared restless. Rhythm recently added yesterday for increasing lethargy. She denies any uncontrolled pain. Denies any lightheadedness, dizziness, or headache. Denies any glycemic reactions with medical team increasing metformin twice a day on 09/04. Denies any nausea, vomiting, or chills and reports she is tolerating her bolus feeding. Discussed with nursing. Medications reviewed. Goal is return home with spouse and home health care services. Tentative discharge date 09/07/2024. Patient to discharge to SNF. Medications (22) Active Scheduled: (12) apixaban 5 mg tablet 5 mg 1 tab(s), PEG, BID atorvastatin 80 mg tablet 80 mg 1 tab(s), PEG, Daily balsam [place]-castor oil topical 87 mg-788 mg/g oint 60g 1 dahlia, Topical, qHS donepezil 5 mg tablet 5 mg 1 tab(s), Oral, qHS emollients (Eucerin) lotion 1 appl, Topical, BID glimepiride 2 mg Tablet 4 mg 2 tab(s), PEG, BID insulin lispro 100 units/mL Soln (3 mL) Give 0-6 units/dose, Subcutaneous, TIDAC levothyroxine 75 mcg tablet 75 mcg 1 tab(s), PEG, qDay menthol-zinc oxide topical ointment 4oz 1 dahlia, Topical, amhs metformin 500 mg Tablet 500 mg 1 tab(s), PEG, BID methylphenidate 5 mg Tablet 2.5 mg 0.5 tab(s), Oral, breakfast/lunch metoprolol tartrate 50 mg tablet 50 mg 1 tab(s), PEG, BID Continuous: (0) PRN: (10) acetaminophen 325 mg Tablet 650 mg 2 tab(s), PEG, q4h Al hydrox/Mg hydrox/simethicone 200-200-20 mg/5 mL Susp UD 30 mL, PEG, q6h dextrose 50% Solution Disp syringe 50 mL 12.5 gram(s) 25 mL, IV Push, AsDirected docusate 10 mg/mL Liq 10mL UD 100 mg 10 mL, PEG, BID glucagon recombinant 1 mg 1 mg 1 mL, Intramuscular, AsDirected glucose 4 gm Chewable 4 tab(s), Chewed, AsDirected glycerin adult Suppository 1 supp, Rectal, Daily magnesium hydroxide 8% Suspension 30 mL UD 30 mL, PEG, qDay ondansetron 4 mg DIS tablet 4 mg 1 tab(s), Oral, q8h polyethylene glycol 3350 - UD packet 17 gram(s) 15 mL, PEG, qDay Social history: Social support: Lives with spouse Home set-up: Single level set up, first-floor bedroom bath Barriers to discharge: Time since onset, safety awareness, past medical history Review of Systems: General: Appetite is good n.p.o., Glucerna bolus feeds 6 times per day Respiratory: Denies shortness of breath, cough, or congestion Cardiovascular: Denies chest pain, chest pressure, or heart palpitations Gastrointestinal: Denies nausea, vomiting, constipation, or diarrhea Genitourinary: Denies suprapubic tenderness, CVA tenderness, bladder distention. Denies dysuria Musculoskeletal: No uncontrolled pain Psychiatric: No reported change in cognition Vitals Signs(Last 24 hrs)__Last Charted Minimum Maxi mum Heart Rate64(SEP 05 16:46)64(SEP 05 16:46)85(SEP 05 09:40) TBU773(SEP 05 16:36)138(SEP 05 16:36)H 158(SEP 05 09:52) DBPH 90(SEP 05 16:36)81(SEP 05 09:52)H 90(SEP 05 16:36) Physical Exam: General: Alert and oriented, no acute distress. Sitting up in wheelchair, appears countable, and does not appear in acute pain. Pleasant and cooperative. Good eye contact with flat affect Respiratory: Lungs are clear to auscultation. Respirations are unlabored on room air. No cough, congestion, or conversational Cardiovascular: Heart rate is regular. No bradycardia, tachycardia, or heart murmur Gastrointestinal: Abdomen is nontender, nondistended and soft. Bowel sounds are present in all 4 quadrants Arterial: 2/4 distal pulses bilateral lower extremities Edema: Trace of edema to the bilateral lower extremities. No calf tenderness. Musculoskeletal: Mild polyarthritis Spinal Curvatures: Slight increased thoracic kyphosis. Weight bearing status/transfers/ADLs: Weightbearing as tolerated. Ambulate 15 feet with assist of 2 people and front wheeled walker. Dependent with toilet hygiene. Substantial/maximal assist with sit to stand, chair to bed transfer. Dependent with toilet transfer. Two-person assist for stand pivot transfer from wheelchair to commode with heavy right upper extremity use on grab bar and blocking of left lower extremity throughout. Working with speech therapy for least restrictive diet. Did have MBS on 09/05 which she did fail, remains n.p.o. with Glucerna bolus 6 times per day Skin: Thin, dry, and atrophic Neurological: Cranial nerves intact Left-sided facial weakness Flexed posture Decreased sensation distally 2/5 left upper extremity strength increased tone 4/5 right upper extremity strength 2/5 left lower extremity strength 4/5 right lower extremity strength Decreased hand grasp bilaterally Decreased shoulder range of motion bilaterally 1/4 bilateral upper extremity reflexes 1/4 bilateral lower extremity reflexes Psychiatric: Pleasant and cooperative. Mood and cognition stable Assessment: Basal ganglia hemorrhage with dense left hemiparesis. Lethargy osteoarthritis dysphagia hypertension hyperlipidemia Plan: Continue acute dilatation physical occupational speech therapy services. Repeat swallow test were performed continue Paez [place] protocol and order motor exercises and Glucerna 1.2 bolus 6 times a day with water flush. Ritalin initiated to improve alertness. Work minimize fall risk. Case discussed with spouse. Plan transition to skilled September 07 with home care services. Therapy notes reviewed Risks/benefits of meds, treatments considered. Therapy notes reviewed. Discussed with staff. PMH/SH reviewed and unchanged Note: This dictation was created with assistance of voice recognition software. Phonic and/or minor grammatical errors may exist. All medications reviewed and up to date Emma Roe RN, am scribing for, and in the presence of Dr. Dae Barrett I, Dr. Dae Barrett , personally performed the services described in this documentation, as described by Emma Grover RN in my presence and it is both accurate and complete Digitally Signed by SILVINO HA DO on 09/06/2024 12:34 PM Tyler Garcia 09-05-2024 Hospital Discharge instructions Patient Education 09/05/2024 14:15:00 Hospital Discharge After a Stroke Hospital Discharge After a Stroke Being discharged from the hospital after a stroke can feel overwhelming. Many things may be different, and it is normal to feel scared or anxious. Some stroke survivors may be able to return to their homes, and others may need more specialized care on a temporary or permanent basis. Your stroke care team will work with you to develop a discharge plan that is best for you. Ask questions if you do not understand something. Invite a friend or family member to participate in discharge planning. Understanding and following your discharge plan can help to prevent another stroke or other problems. Understanding your medicines After a stroke, your health care provider may prescribe one or more types of medicine. It is important to take medicines exactly as told by your health care provider. Serious harm, such as another stroke, can happen if you are unable to take your medicine exactly as prescribed. Make sure you understand: What medicine to take. Why you are taking the medicine. How and when to take it. If it can be taken with your other medicines and herbal supplements. Possible side effects. When to call your health care provider if you have any side effects. How you will get and pay for your medicines. Medical assistance programs may be able to help you pay for prescription medicines if you cannot afford them. If you are taking an anticoagulant, be sure to take it exactly as told by your health care provider. This type of medicine can increase the risk of bleeding because it works to prevent blood from clotting. You may need to take certain precautions to prevent bleeding. You should contact your health care provider if you have: Bleeding or bruising. A fall or other injury to your head. Blood in your urine or stool (feces). Planning for home safety Take steps to prevent falls, such as installing grab bars or using a shower chair. Ask a friend or family member to get needed things in place before you go home if possible. A therapist can come to your home to make recommendations for safety equipment. Ask your health care provider if you would benefit from this service or from home care. Getting needed equipment Ask your health care provider for a list of any medical equipment and supplies you will need at home. These may include items such as: Walkers. Canes. Wheelchairs. Hand-strengthening devices. Special eating utensils. Medical equipment can be rented or purchased, depending on your insurance coverage. Check with your insurance company about what is covered. Keeping follow-up visits After a stroke, you will need to follow up regularly with a health care provider. You may also need rehabilitation, which can include physical therapy, occupational therapy, or speech-language therapy. Keeping these appointments is very important to your recovery after a stroke. Be sure to bring your medicine list and discharge papers with you to your appointments. If you need help to keep track of your schedule, use a calendar or appointment reminder. Preventing another stroke Having a stroke puts you at risk for another stroke in the future. Ask your health care provider what actions you can take to lower the risk. These may include: Increasing how much you exercise. Making a healthy eating plan. Quitting smoking. Managing other health conditions, such as high blood pressure, high cholesterol, or diabetes. Limiting alcohol use. Knowing the warning signs of a stroke Make sure you understand the signs of a stroke. Before you leave the hospital, you will receive information outlining the stroke warning signs. Share these with your friends and family members. "BE FAST" is an easy way to remember the main warning signs of a stroke: B - Balance. Signs are dizziness, sudden trouble walking, or loss of balance. E - Eyes. Signs are trouble seeing or a sudden change in vision. F - Face. Signs are sudden weakness or numbness of the face, or the face or eyelid drooping on one side. A - Arms. Signs are weakness or numbness in an arm. This happens suddenly and usually on one side of the body. S - Speech. Signs are sudden trouble speaking, slurred speech, or trouble understanding what people say. T - Time. Time to call emergency services. Write down what time symptoms started. Other signs of stroke may include: A sudden, severe headache with no known cause. Nausea or vomiting. Seizure. These symptoms may represent a serious problem that is an emergency. Do not wait to see if the symptoms will go away. Get medical help right away. Call your local emergency services (911 in the [place] Do not drive yourself to the hospital. Make note of the time that you had your first symptoms. Your emergency responders or emergency room staff will need to know this information. Summary Being discharged from the hospital after a stroke can feel overwhelming. It is normal to feel scared or anxious. Make sure you take medicines exactly as told by your health care provider. Know the warning signs of a stroke, and get help right way if you have any of these symptoms. "BE FAST" is an easy way to remember the main warning signs of a stroke. This information is not intended to replace advice given to you by your health care provider. Make sure you discuss any questions you have with your health care provider. Document Released: 08/04/2017 Document Revised: 05/04/2018 Document Reviewed: 08/04/2017 [employer] Patient Education 2020 Campus Diaries. Follow Up Care 08/15/2024 08:51:25 With:RIMMA POWERS MD Address: [facility] ([address], [place]) When:10/08/2024 16:00:00 Comments:Neurosurgeon With:JONNIE BANSAL MD Address: [facility] When: Unknown Comments:GI, No appointment needed until PEG is ready to be removed or concerns arise With:KAMERON CARUSO MD Address: [address] [place] [address]- When:3-7 days Comments:Please schedule follow up PCP appointment for after discharge from SNF, Bring discharge instructions with you Tyler Warnern 09-05-2024 Note Subjective Patient seen this morning up in wheelchair. currently at the bedside. He reports that patient was impossible to wake up this morning . Reports that therapy had difficulty getting her up and dressed this morning. She is seen this morning sitting in her wheelchair, keeps eyes closed during exam. Brief one-word answers when asked questions. I did discuss the potential initiation of Ritalin, was agreeable to this. He reports appetite fluctuates. She does well at breakfast, but has limited intake the rest of the day. Blood glucose levels ranging from 196 270. Objective General: Alert and oriented, NAD. Appears comfortable without signs of pain. Drowsy, poor eye contact, flat affect HEENT: EOMI, MMM, no nasal drainage Respiratory: Lungs clear but diminished respirations nonlabored on RA. No cough/conversational dyspnea Cardiovascular: Heart rate regular.; no tachycardia or heart murmur Edema/Varicosities of Extremities: BLE without edema. No calf pain tenderness Gastrointestinal: Bowel sounds present x4 quadrants. Abdomen soft/nondistended/nontender Genitourinary: No suprapubic tenderness, no CVA tenderness, no bladder distention Neuro: Left arm in sling, capillary refill less than 3 seconds. Ongoing hemiparesis VITALS [id number](kg ) 09/05 09:5236.3--[id number] 09/05 09:40----85----RA 09/04 23:3236.6--[id number] 09/04 21:2436.5--[id number] 09/04 16:01----72----RA 24 Hr Tmax: 36.6 at 09/04 23:32 36 Hr Tmax: 36.6 at 09/04 23:32 Vital Signs are the last 5 in the past 48 hours. Weights display the last 5 within 7 days. Initial Wt: 08/15 75.4 kg 166 lb Current Wt: 08/26 76.0 kg 167 lb LABS No 36 Hour Lab Data Medications Active Inpt Meds: apixaban Start: 08/15/24 21:00:00 EDT, Dose = 5 mg, = 1 tab(s), PEG, BID, Indication for Use Treatment of VTE/PE ( Acute ), 0, 08/15/24 17:09:00 EDT atorvastatin Start: 08/15/24 22:00:00 EDT, Dose = 80 mg, = 1 tab(s), PEG, Daily, 08/15/24 17:09:00 EDT balsam [place]-castor oil topical (Venelex 788 mg-87 mg/g topical ointment) Start: 08/16/24 21:00:00 EDT, Dose = 1 dahlia, Topical, qHS, Apply to: Heels, Ointment, 08/16/24 7:20:00 EDT donepezil (Aricept) Start: 08/26/24 21:00:00 EDT, Dose = 5 mg, = 1 tab(s), Oral, qHS, 08/26/24 15:15:00 EDT emollients, topical (emollients (Eucerin Lotion) Lotion) Start: 08/16/24 9:00:00 EDT, Dose = 1 appl, Topical, BID, Apply to: Legs, Lotion, 08/16/24 7:19:00 EDT glimepiride Start: 08/29/24 17:00:00 EDT, Dose = 4 mg, = 2 tab(s), PEG, BID, 0, 08/29/24 10:01:00 EDT insulin lispro (HumaLOG) (HumaLOG 100 units/mL subcutaneous solution) Start: 08/23/24 12:00:00 EDT, Give 0-6 units/dose, Subcutaneous, TIDAC, 0, 08/23/24 8:27:00 EDT levothyroxine Start: 08/16/24 7:00:00 EDT, Dose = 75 mcg, = 1 tab(s), PEG, qDay, 0, 08/15/24 17:09:00 EDT menthol-zinc oxide topical (Calmoseptine or equivalent topical ointment) Start: 08/16/24 7:20:00 EDT, Dose = 1 dahlia, Topical, amhs, Apply to: Bilateral buttock/coccyx, Ointment, 08/16/24 7:20:00 EDT metFORMIN (metFORMIN 500 mg oral tablet (IR)) Start: 09/04/24 17:00:00 EDT, Dose = 500 mg, = 1 tab(s), PEG, BID, 09/04/24 17:00:00 EDT methylphenidate (Ritalin) Start: 09/05/24 12:00:00 EDT, Dose = 2.5 mg, = 0.5 tab(s), Oral, breakfast/lunch, 09/05/24 10:35:00 EDT metoprolol (metoprolol tartrate 50 mg oral tablet) Start: 08/15/24 17:09:00 EDT, Dose = 50 mg, = 1 tab(s), PEG, BID, Hold if SBP (mmHg) < 110, 1st dose location: [facility], 1, 08/15/24 17:09:00 EDT Active PRN Meds: Al hydroxide/Mg hydroxide/simethicone (Maalox) Start: 08/15/24 17:18:00 EDT, Dose = 30 mL, Susp, PEG, q6h, PRN, Indigestion, 0, 08/15/24 17:18:00 EDT acetaminophen (Tylenol) Start: 08/15/24 17:18:00 EDT, Dose = 650 mg, = 2 tab(s), PEG, q4h, PRN, Muscle pain, 08/15/24 17:18:00 EDT docusate (Colace) Start: 08/15/24 17:44:00 EDT, Dose = 100 mg, = 10 mL, PEG, BID, PRN, Constipation, 0 glucagon (GlucaGen) Start: 08/15/24 17:18:00 EDT, Dose = 1 mg, = 1 mL, Intramuscular, AsDirected, PRN, Hypoglycemia, if unresponsive, NO IV ACCESS & blood glucose less than 70mg/dL. If still unresponsive after 2 minutes, REPEAT x1., 1st dose location: [facility], 0, 08/15/24 1... glucose (Dextrose 50% IV Push) Start: 08/15/24 17:18:00 EDT, Dose = 12.5 gram(s), = 25 mL, IV Push, AsDirected, PRN, Hypoglycemia, if unresponsive WITH IV ACCESS & blood glucose less than 70mg/dL. If still unresponsive after 2 minutes, REPEAT x1., 08/15/24 17:18:00 EDT glucose Start: 08/15/24 17:18:00 EDT, Dose = 16 gram(s), = 4 tab(s), Chewed, AsDirected, PRN, Hypoglycemia, DIABETIC PATIENT if responsive & blood glucose less than 70mg/dL. If blood glucose less than 70mg/dL after 15 minutes, REPEAT x1., 0, 08/15/24 17:1... glycerin (glycerin adult rectal suppository) Start: 08/15/24 17:18:00 EDT, Dose = 1 supp, Supp, Rectal, Daily, PRN, Constipation, 08/15/24 17:18:00 EDT magnesium hydroxide (Milk of Magnesia) Start: 08/15/24 17:18:00 EDT, Dose = 30 mL, Susp-Oral, PEG, qDay, PRN, Constipation, 08/15/24 17:18:00 EDT ondansetron (Zofran ODT) Start: 08/18/24 8:47:00 EDT, Dose = 4 mg, = 1 tab(s), Oral, q8h, PRN, Nausea/Vomiting, Disintegrating Tablet, 08/18/24 8:47:00 EDT polyethylene glycol 3350 (Miralax Powder Packet) Start: 08/15/24 17:18:00 EDT, Dose = 17 gram(s), = 15 mL, PEG, qDay, PRN, Constipation, 08/15/24 17:18:00 EDT One Time Meds: None Active IV Meds: None Problems (6) CVA (cerebral vascular accident) (829609842) Diabetes mellitus (354852058) Dysphagia (84563026) Hyperlipidemia (69076054) Hypertension (7096893740) Osteoarthritis ([id number]) ASSESSMENT/PLAN: Right basal ganglia hemorrhage, status post thrombectomy with revascularization follow-up appointment with neurosurgery on 10/08. Continue work with physical and Occupational Therapy with goal to return home at discharge. reports that referrals have been sent to [facility] yesterday. Currently has [address] at this time. Diabetes mellitus type 2 with hyperglycemia blood glucose levels ranging from 196 270. Metformin increased to 500 mg twice a day yesterday. Monitor closely. Continues to work with speech therapy Lethargy increased over the past several days. reports this is new for her. Did have a CT on 09/02 that demonstrated evolving hemorrhage. Follow-up appoint with neurology on 10/08. Oxybutynin discontinued yesterday. Did discuss with , will trial Ritalin 2.5 mg at breakfast and lunch and monitor for increase in responsiveness Hypertension lisinopril discontinued on 09/03. Blood pressures responding well, 128/70 1 49/85. Continue Lopressor 50 mg twice a day. Medications are reviewed and up-to-date This document was transcribed using dictation software and may contain typographical errors. Destiny Roe RN, am scribing for , and in the presence of Catherine Newman APRN I, Julie Angel, [employer], personally performed the services described in this documentation, as scribed by, Destiny Santiago RN in my presence and it is both accurate and complete. Digitally Signed by CATHERINE NEWMAN APRN-GARRETT on 09/05/2024 04:55 PM Tyler Garcia 09-05-2024 Physical medicine and rehab Progress note Subjective Patient not really offering a whole lot of information, states that she is just very tired. Both patient and state the patient slept well last night. states that she tried her best working with therapy yesterday but she is still not where she was last week. Patient denies having any pain. She tells me her breathing is fine. Denies difficulties with urination. States that she is tolerating the tube feeds Objective General: Alert, oriented no acute distress. Laying in bed, appears comfortable. Does not appear to be in pain. Not offering a lot of information. Poor eye contact, flat affect. at bedside HEENT: MMM. EOMI. No nasal drainage Respiratory: Lungs clear nonlabored on room air; no cough or congestion Cardiovascular: HRR; no tachycardia; no murmur Edema/Varicosities of Extremities: No edema BLE Gastrointestinal: Bowel sounds present x 4; abdomen soft/nondistended/nontender Genitourinary: No CVA tenderness, no suprapubic tenderness, no bladder distention Skin: PEG tube in place with no signs/symptoms of infection at insertion area Neuro: Left upper extremity hemiparesis VITALS [id number](kg ) 09/04 23:3236.6--[id number] 09/04 21:2436.5--[id number] 09/04 16:01----72----RA 09/04 12:10--------97RA 09/04 10:5435.9--[id number] 24 Hr Tmax: 36.6 at 09/04 23:32 36 Hr Tmax: 36.6 at 09/04 23:32 Vital Signs are the last 5 in the past 48 hours. Weights display the last 5 within 7 days. Initial Wt: 08/15 75.4 kg 166 lb Current Wt: 08/26 76.0 kg 167 lb LABS No 36 Hour Lab Data Medications Active Inpt Meds: apixaban Start: 08/15/24 21:00:00 EDT, Dose = 5 mg, = 1 tab(s), PEG, BID, Indication for Use Treatment of VTE/PE ( Acute ), 0, 08/15/24 17:09:00 EDT atorvastatin Start: 08/15/24 22:00:00 EDT, Dose = 80 mg, = 1 tab(s), PEG, Daily, 08/15/24 17:09:00 EDT balsam Lela-castor oil topical (Venelex 788 mg-87 mg/g topical ointment) Start: 08/16/24 21:00:00 EDT, Dose = 1 dahlia, Topical, qHS, Apply to: Heels, Ointment, 08/16/24 7:20:00 EDT donepezil (Aricept) Start: 08/26/24 21:00:00 EDT, Dose = 5 mg, = 1 tab(s), Oral, qHS, 08/26/24 15:15:00 EDT emollients, topical (emollients (Eucerin Lotion) Lotion) Start: 08/16/24 9:00:00 EDT, Dose = 1 appl, Topical, BID, Apply to: Legs, Lotion, 08/16/24 7:19:00 EDT glimepiride Start: 08/29/24 17:00:00 EDT, Dose = 4 mg, = 2 tab(s), PEG, BID, 0, 08/29/24 10:01:00 EDT insulin lispro (HumaLOG) (HumaLOG 100 units/mL subcutaneous solution) Start: 08/23/24 12:00:00 EDT, Give 0-6 units/dose, Subcutaneous, TIDAC, 0, 08/23/24 8:27:00 EDT levothyroxine Start: 08/16/24 7:00:00 EDT, Dose = 75 mcg, = 1 tab(s), PEG, qDay, 0, 08/15/24 17:09:00 EDT menthol-zinc oxide topical (Calmoseptine or equivalent topical ointment) Start: 08/16/24 7:20:00 EDT, Dose = 1 dahlia, Topical, amhs, Apply to: Bilateral buttock/coccyx, Ointment, 08/16/24 7:20:00 EDT metFORMIN (metFORMIN 500 mg oral tablet (IR)) Start: 09/04/24 17:00:00 EDT, Dose = 500 mg, = 1 tab(s), PEG, BID, 09/04/24 17:00:00 EDT metoprolol (metoprolol tartrate 50 mg oral tablet) Start: 08/15/24 17:09:00 EDT, Dose = 50 mg, = 1 tab(s), PEG, BID, Hold if SBP (mmHg) < 110, 1st dose location: [facility], 1, 08/15/24 17:09:00 EDT Active PRN Meds: Al hydroxide/Mg hydroxide/simethicone (Maalox) Start: 08/15/24 17:18:00 EDT, Dose = 30 mL, Susp, PEG, q6h, PRN, Indigestion, 0, 08/15/24 17:18:00 EDT acetaminophen (Tylenol) Start: 08/15/24 17:18:00 EDT, Dose = 650 mg, = 2 tab(s), PEG, q4h, PRN, Muscle pain, 08/15/24 17:18:00 EDT docusate (Colace) Start: 08/15/24 17:44:00 EDT, Dose = 100 mg, = 10 mL, PEG, BID, PRN, Constipation, 0 glucagon (GlucaGen) Start: 08/15/24 17:18:00 EDT, Dose = 1 mg, = 1 mL, Intramuscular, AsDirected, PRN, Hypoglycemia, if unresponsive, NO IV ACCESS & blood glucose less than 70mg/dL. If still unresponsive after 2 minutes, REPEAT x1., 1st dose location: [facility], 0, 08/15/24 1... glucose (Dextrose 50% IV Push) Start: 08/15/24 17:18:00 EDT, Dose = 12.5 gram(s), = 25 mL, IV Push, AsDirected, PRN, Hypoglycemia, if unresponsive WITH IV ACCESS & blood glucose less than 70mg/dL. If still unresponsive after 2 minutes, REPEAT x1., 08/15/24 17:18:00 EDT glucose Start: 08/15/24 17:18:00 EDT, Dose = 16 gram(s), = 4 tab(s), Chewed, AsDirected, PRN, Hypoglycemia, DIABETIC PATIENT if responsive & blood glucose less than 70mg/dL. If blood glucose less than 70mg/dL after 15 minutes, REPEAT x1., 0, 08/15/24 17:1... glycerin (glycerin adult rectal suppository) Start: 08/15/24 17:18:00 EDT, Dose = 1 supp, Supp, Rectal, Daily, PRN, Constipation, 08/15/24 17:18:00 EDT magnesium hydroxide (Milk of Magnesia) Start: 08/15/24 17:18:00 EDT, Dose = 30 mL, Susp-Oral, PEG, qDay, PRN, Constipation, 08/15/24 17:18:00 EDT ondansetron (Zofran ODT) Start: 08/18/24 8:47:00 EDT, Dose = 4 mg, = 1 tab(s), Oral, q8h, PRN, Nausea/Vomiting, Disintegrating Tablet, 08/18/24 8:47:00 EDT polyethylene glycol 3350 (Miralax Powder Packet) Start: 08/15/24 17:18:00 EDT, Dose = 17 gram(s), = 15 mL, PEG, qDay, PRN, Constipation, 08/15/24 17:18:00 EDT One Time Meds: None Active IV Meds: None Problems (6) CVA (cerebral vascular accident) (528099482) Diabetes mellitus (319470851) Dysphagia (79014301) Hyperlipidemia (87623555) Hypertension (7835044461) Osteoarthritis (3217917293) ASSESSMENT/PLAN: Acute right basal ganglia hemorrhage with surrounding mass effect and midline shift. This was noted on second CT of head completed due to left-sided weakness and slurred speech. CTA of head and neck showing mid right M1 occlusion however patient not a TNK candidate. During hospitalization noted to be with increased drowsiness prompting repeat CT of head showing no significant change, evolving changes of right basal ganglia infarct and petechial hemorrhage with stable mass effect and midline shift. MRI of brain completed showing hemorrhage infarct involving right basal ganglia with surrounding edema, mass effect with effacement right lateral ventricle and midline shift to left with tiny infarct in right cerebellum. 08/12 underwent thrombectomy with NSGY and revascularization. Neurology did discontinue aspirin and home Eliquis continued. Continues on statin along with blood pressure and diabetic control as well. Follow-up with neurology 10/08 Urinary tract infection with Klebsiella, ceftriaxone during hospitalization. Has completed antibiotic course. Nonbleeding gastric ulcer and erosive gastropathy noted on EGD completed. May need to consider PPI during send facility as this is not noted to be on regimen presently. Left-sided hemiparesis, will continue acute inpatient physical and Occupational Therapy. DVT prophylaxis, does have home Eliquis which was reinitiated during hospitalization at 5 mg twice daily. Hyperlipidemia, high-dose statin in place. Tolerating Hypothyroidism continuing levothyroxine 75 mcg daily. Atrial fibrillation, Eliquis and metoprolol dosing in place. Heart rates are stable with no cardiac complaints. Dysphagia, did fail MBS during hospitalization with PEG tube placement completed. Presently on bolus feed recommendations per dietary team. Speech therapy/dietary following. Kerwin Paez protocol initiated with ice chips only. Daytime somnolence. Per patient's was often taking naps at various times during the day at home prior to hospitalization. Will monitor for ability to participate with therapy moving forward. History of urge incontinence, home oxybutynin currently on hold Generalized weakness along with left-sided hemiparesis requiring acute inpatient physical Occupational Therapy along speech therapy with close medical percent. Nausea, as needed Zofran available. Oral thrush, Diflucan completed 08/25, nystatin completed on 09/01. No further symptoms. Ongoing hyperglycemia, glimepiride was increased to 4 mg twice daily with recent increase in metformin to 500 mg twice daily with close monitoring of blood sugars. Monitoring closely with the recent change in tube feeding orders. Accuchecks in place 3 times a day with sliding scale insulin. Recent hemoglobin A1c at 8.4%. Monitoring blood sugars closely. Follow-up with neurosurgery 10/08 Philippe Roberts protocol in place with ice chips only, FEES test completed, remains n.p.o. with bolus tube feeds 6 times per day, holding bolus feeds residuals greater than 200 cc. Left upper extremity pain, x-rays negative, Tylenol effective. Dysphagia with recent trial and bolus feedings, reassessing from a dietary standpoint due to elevated residuals Hyponatremia improved to 138, monitoring lab work Cognitive impairment post CVA, Aricept initiated with close reevaluation Overactive bladder, oxybutynin discontinued due to potential side effects Episode of grogginess with fatigue 09/02, repeat CT head was obtained showing evolving right basal ganglia hemorrhage, small vessel ischemic disease, no evidence of new bleed tolerating this point the Eliquis therapy Lisinopril discontinued due to hypotension, monitor blood pressures closely. Showed improvement within the past 24 hours Patient still with some intermittent fatigue in the mornings, reassessing closely oxybutynin stopped yesterday, min to moderate assist sit to stand, wheeling 50 feet at a moderate assist level. Ongoing dysphagia remains n.p.o. except for ice chips speech therapy following PEG tube nutrition in place Medications reviewed and up to date This document was transcribed using dictation software and may contain typographical errors. Jhonatan Roe RN, am scribing for , and in the presence of Dr. Hutton. I, Dr. Hutton, personally performed the services described in this documentation, as scribed byJhonatan RN in my presence and it is both accurate and complete. Digitally Signed by NANDO HUTTON DO on 09/05/2024 10:12 AM Tyler Sears 09-04-2024 Physical medicine and rehab Progress note Rehab Note Chief Complaint: Seeing this patient for reevaluation of therapy progress and CVA, dysphagia History of Present Illness: Seeing this patient for reevaluation of therapy progress and CVA. Patient participates in acute inpatient rehabilitation with PT, OT and ST services. 78-year-old female who is past medical history of coronary artery disease, diabetes mellitus type 2, atrial relation, hypertension, osteoarthritis, and hyperlipidemia who presented to the emergency room with noted left-sided weakness and slurred speech. She originally presented to [facility] with CT of the head was obtained showed no acute hemorrhage or large territory stroke. CTA showed mid right M1 occlusion however patient was not a TNK candidate. She was then transferred to a [facility] for further management. CT of head showed acute right basal ganglia hemorrhage with surrounding mass effect and midline shift. On 08/02 underwent thrombectomy with NSGY with FAB[facility] TB revascularization. Postoperatively she did fail her modified barium swallow on 08/06. On 08/01 7 GI was consulted and PEG tube was placed on 08/08. Stay was then complicated by increased fatigue and drowsiness. Repeat CT of head obtained showed no significant change with evolving changes of right basal ganglia infarct and petechial hemorrhage with stable mass effect or midline shift. MRI of the brain obtained showing hemorrhagic infarct involving the right basal ganglia and surrounding edema, mass effect with effacement of right lateral ventricle and midline shift to left with tiny infarct in right cerebellum. TTE performed showed ejection ration of 65-70%, hemoglobin A1c found to be 7.8%. Urine was obtained in was positive for urinary tract infection. Initiated on ceftriaxone for culture, infection and Klebsiella. EGD was completed showed none bleeding gastric ulcer and erosive gastroscopy. Aspirin was continued at that time and home Eliquis was initiated 5 mg twice daily. Home oxybutynin held on discharge. PEG tube remains in place and receiving continuous feedings. Discussed with nursing. Medications reviewed. Goal is return home with spouse and home health care services. Tentative discharge date 09/07/2024. Patient to discharge to SNF. Medications Medication List Active Medications Ordered acetaminophen: 650 mg, 2 tab(s), PEG, q4h, PRN: Muscle pain. Al hydroxide/Mg hydroxide/simethicone: 30 mL, PEG, q6h, PRN: Indigestion. apixaban: 5 mg, 1 tab(s), PEG, BID. atorvastatin: 80 mg, 1 tab(s), PEG, Daily. balsam Lela-castor oil topical: 1 dahlia, Topical, qHS. docusate: 100 mg, 10 mL, PEG, BID, PRN: Constipation. donepezil: 5 mg, 1 tab(s), Oral, qHS. emollients, topical: 1 appl, Topical, BID. glimepiride: 4 mg, 2 tab(s), PEG, BID. glucagon: 1 mg, 1 mL, Intramuscular, AsDirected, PRN: Hypoglycemia. glucose: 12.5 gram(s), 25 mL, IV Push, AsDirected, PRN: Hypoglycemia. glucose: 16 gram(s), 4 tab(s), Chewed, AsDirected, PRN: Hypoglycemia. glycerin: 1 supp, Rectal, Daily, PRN: Constipation. insulin lispro (HumaLOG): Give 0-6 units/dose, Subcutaneous, TIDAC. levothyroxine: 75 mcg, 1 tab(s), PEG, qDay. magnesium hydroxide: 30 mL, PEG, qDay, PRN: Constipation. menthol-zinc oxide topical: 1 dahlia, Topical, amhs. metFORMIN: 500 mg, 1 tab(s), PEG, qDayM. metoprolol: 50 mg, 1 tab(s), PEG, BID. ondansetron: 4 mg, 1 tab(s), Oral, q8h, PRN: Nausea/Vomiting. polyethylene glycol 3350: 17 gram(s), 15 mL, PEG, qDay, PRN: Constipation. Prescribed aspirin: 81 mg, 1 tab(s), Oral, BID, Take 81 mg aspirin twice daily with food for 4 weeks postoperatively for DVT prophylaxis, 60 tab(s), 0 Refill(s). famotidine: 20 mg, 1 tab(s), Oral, qDay, 30 tab(s), 0 Refill(s). meloxicam: 7.5 mg, 1 tab(s), Oral, BIDM, 60 tab(s), 0 Refill(s). Documented apixaban: 5 mg, 1 tab(s), PEG, BID, 0 Refill(s). atenolol: 50 mg, 1 tab(s), Oral, Daily, 0 Refill(s). atorvastatin: 80 mg, 1 tab(s), PEG, Daily, 0 Refill(s). cholecalciferol: 1,000 unit(s), 1 tab(s), Oral, Daily, 0 Refill(s). glimepiride: 2 mg, 1 tab(s), PEG, qDay, 30 tab(s), 0 Refill(s). glipiZIDE: 10 mg, 1 tab(s), Oral, qDayM, 0 Refill(s). glucose: 15 gram(s), PEG, AsDirected, PRN: Low blood sugar low blood sugar, 0 Refill(s). levothyroxine: 75 mcg, PEG, qDay, 0 Refill(s). lisinopril: 10 mg, 1 tab(s), PEG, qDay, 30 tab(s), 0 Refill(s). metFORMIN: 2,000 mg, 4 tab(s), Oral, qDay, 90 tab(s), 0 Refill(s). metoprolol: 50 mg, 1 tab(s), PEG, BID, 60 tab(s), 0 Refill(s). ramipril: 20 mg, 2 cap(s), Oral, qDay, 30 cap(s), 0 Refill(s). Medications Inactivated in the Last 72 Hours lisinopril: 2.5 mg, 1 tab(s), PEG, qDay. nystatin: 500,000 unit(s), 5 mL, Swish & Spit, QID. oxybutynin: 5 mg, 1 tab(s), Oral, BID. Social history: Social support: Lives with spouse Home set-up: Single level set up, first-floor bedroom bath Barriers to discharge: Time since onset, safety awareness, past medical history Review of Systems: General: Appetite is good n.p.o., Glucerna bolus feeds Respiratory: Denies shortness of breath, denies cough Cardiovascular: Denies chest pain, denies palpitations Gastrointestinal: Denies nausea, vomiting, constipation, diarrhea Genitourinary: Denies suprapubic pain or tenderness, no dysuria Musculoskeletal: No uncontrolled pain Psychiatric: No reported change in cognition Vital Signs Vitals Signs(Last 24 hrs)__Last Charted Minimum Maxi mum Heart Rate64(SEP 03 15:52)64(SEP 03 15:52)90(SEP 03 08:28) IGO584(SEP 04 05:38)112(SEP 04 05:38)127(SEP 03 08:00) DBP70(SEP 04 05:38)65(SEP 03 08:00)80(SEP 03 21:41) Physical Exam: General: Alert, no acute distress, No noted pain or discomfort Respiratory: Respirations even and nonlabored, lungs clear to auscultation, no conversational dyspnea, no cough Cardiovascular: HRRR, no murmur/ tachycardia/bradycardia. Gastrointestinal: Abdomen is nontender, nondistended and soft. Bowel sounds normal x4. Arterial: 2/4 distal pulses bilateral lower extremities Edema: No noted BLE edema. No calf tenderness. Musculoskeletal: Mild polyarthritis Spinal Curvatures: Slight increased thoracic kyphosis. Weight bearing status/transfers/ADLs: Weightbearing as tolerated. Patient not ambulating at this time. Dependent with toilet hygiene. Substantial/maximal assist with sit to stand, chair to bed transfer. Dependent with toilet transfer. Two-person assist for stand pivot transfer from wheelchair to commode with heavy right upper extremity use on grab bar and blocking of left lower extremity throughout. Patient continues to request speech therapy. Patient is currently n.p.o. and receives Glucerna boluses. Scheduled for an MBS on 09/05. Skin: Intact, thin and dry. Neurological: Cranial nerves intact Left-sided facial weakness Decreased sensation distally Trace left upper extremity strength increased tone 4/5 right upper extremity strength 2 -/5 left lower extremity strength 4/5 right lower extremity strength Decreased hand grasp bilaterally Decreased shoulder range of motion bilaterally 1/4 bilateral upper extremity reflexes 1/4 bilateral lower extremity reflexes Psychiatric: Alert. Oriented. Pleasant. Cooperative. 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 Dysphagia status post PEG tube placement. Hypothyroidism. Hypertension hyperlipidemia Plan: Continue acute rehabilitation physical occupational and speech therapy services. NPO. Swallow test tomorrow. Case discussed with spouse. Lisinopril discontinued.. Increase free water flush 250 cc 6 times a day. Labs noted. Probable transition to skilled for ongoing skilled therapy services PT OT and speech with long-term goal of home with spouse with decreased burden of care. Risks/benefits of meds, treatments considered. Therapy notes reviewed. Discussed with staff. PMH/SH reviewed and unchanged Medications are reviewed and up-to-date This document was transcribed using dictation software and may contain typographical errors. Destiny Roe RN, am scribing for , and in the presence of Dr. Dae PALMER. Dr. Dae Roe DO, personally performed the services described in this documentation, as scribed by, Destiny Santiago RN in my presence and it is both accurate and complete. Digitally Signed by SILVINO HA DO on 09/04/2024 11:55 AM Tyler Garcia 09-04-2024 Note Subjective Patient states she is doing okay this morning. She does report some loose stools, has been for she did have 6 loose stools yesterday. She denies abdominal pain, nausea, or vomiting. He reports that he is seems more alert with less grogginess this morning than she did yesterday. States she slept well last night. Denies any glycemic reactions with blood sugars ranging 150 286. She denies any controlled pain and states therapy services are going well. Objective General: No acute distress, alert and reactive. Lying in bed, at bedside. Appears comfortable, and does not appear in acute pain. Poor eye contact with flat affect HEENT: EOMI, MMM, no nasal drainage Respiratory: Lungs are clear to auscultation. Respiratory unlabored on room air. No cough, congestion, or conversational dyspnea Cardiovascular: Heart rate regular, no bradycardia tachycardia, or heart murmur Edema/Varicosities of Extremities: No edema to the bilateral lower extremities. No calf tenderness. Gastrointestinal: Abdomen is nontender, soft, and nondistended. Bowel sounds are present in all 4 quadrants. PEG tube in place with tube feeding infusing Genitourinary: No suprapubic tenderness, CVA tenderness, or bladder distention. Skin: PEG tube in place with no signs/symptoms of infection at insertion area Neuro: Left upper extremity hemiparesis VITALS [id number](kg ) 09/03 21:4136.4--[id number] 09/03 15:52----64---- 09/03 08:46 09/03 08:28----90---- 09/03 08:0036.4--[id number] 24 Hr Tmax: 36.4 at 09/03 21:41 36 Hr Tmax: 36.4 at 09/03 21:41 Vital Signs are the last 5 in the past 48 hours. Weights display the last 5 within 7 days. Initial Wt: 08/15 75.4 kg 166 lb Current Wt: 08/26 76.0 kg 167 lb LABS 09/03 08:15 WBC: 7.6 Hgb: 13.2 Hct: 39.7 Platelet: 228 Neutrophil %: 59.5 Glucose Level: 187 H Sodium Level: 138 Potassium Level: 4.6 BUN: 30.0 H Creatinine Lvl (s): 1.01 Medications Active Inpt Meds: apixaban Start: 08/15/24 21:00:00 EDT, Dose = 5 mg, = 1 tab(s), PEG, BID, Indication for Use Treatment of VTE/PE ( Acute ), 0, 08/15/24 17:09:00 EDT atorvastatin Start: 08/15/24 22:00:00 EDT, Dose = 80 mg, = 1 tab(s), PEG, Daily, 08/15/24 17:09:00 EDT balsam Lela-castor oil topical (Venelex 788 mg-87 mg/g topical ointment) Start: 08/16/24 21:00:00 EDT, Dose = 1 dahlia, Topical, qHS, Apply to: Heels, Ointment, 08/16/24 7:20:00 EDT donepezil (Aricept) Start: 08/26/24 21:00:00 EDT, Dose = 5 mg, = 1 tab(s), Oral, qHS, 08/26/24 15:15:00 EDT emollients, topical (emollients (Eucerin Lotion) Lotion) Start: 08/16/24 9:00:00 EDT, Dose = 1 appl, Topical, BID, Apply to: Legs, Lotion, 08/16/24 7:19:00 EDT glimepiride Start: 08/29/24 17:00:00 EDT, Dose = 4 mg, = 2 tab(s), PEG, BID, 0, 08/29/24 10:01:00 EDT insulin lispro (HumaLOG) (HumaLOG 100 units/mL subcutaneous solution) Start: 08/23/24 12:00:00 EDT, Give 0-6 units/dose, Subcutaneous, TIDAC, 0, 08/23/24 8:27:00 EDT levothyroxine Start: 08/16/24 7:00:00 EDT, Dose = 75 mcg, = 1 tab(s), PEG, qDay, 0, 08/15/24 17:09:00 EDT menthol-zinc oxide topical (Calmoseptine or equivalent topical ointment) Start: 08/16/24 7:20:00 EDT, Dose = 1 dahlia, Topical, amhs, Apply to: Bilateral buttock/coccyx, Ointment, 08/16/24 7:20:00 EDT metFORMIN (metFORMIN 500 mg oral tablet (IR)) Start: 08/22/24 10:02:00 EDT, Dose = 500 mg, = 1 tab(s), PEG, qDayM, 08/22/24 10:02:00 EDT metoprolol (metoprolol tartrate 50 mg oral tablet) Start: 08/15/24 17:09:00 EDT, Dose = 50 mg, = 1 tab(s), PEG, BID, Hold if SBP (mmHg) < 110, 1st dose location: [facility], 1, 08/15/24 17:09:00 EDT oxybutynin (oxybutynin 5 mg oral tablet) Start: 08/27/24 15:17:00 EDT, Dose = 5 mg, = 1 tab(s), Oral, BID, 08/27/24 15:17:00 EDT Active PRN Meds: Al hydroxide/Mg hydroxide/simethicone (Maalox) Start: 08/15/24 17:18:00 EDT, Dose = 30 mL, Susp, PEG, q6h, PRN, Indigestion, 0, 08/15/24 17:18:00 EDT acetaminophen (Tylenol) Start: 08/15/24 17:18:00 EDT, Dose = 650 mg, = 2 tab(s), PEG, q4h, PRN, Muscle pain, 08/15/24 17:18:00 EDT docusate (Colace) Start: 08/15/24 17:44:00 EDT, Dose = 100 mg, = 10 mL, PEG, BID, PRN, Constipation, 0 glucagon (GlucaGen) Start: 08/15/24 17:18:00 EDT, Dose = 1 mg, = 1 mL, Intramuscular, AsDirected, PRN, Hypoglycemia, if unresponsive, NO IV ACCESS & blood glucose less than 70mg/dL. If still unresponsive after 2 minutes, REPEAT x1., 1st dose location: [facility], 0, 08/15/24 1... glucose (Dextrose 50% IV Push) Start: 08/15/24 17:18:00 EDT, Dose = 12.5 gram(s), = 25 mL, IV Push, AsDirected, PRN, Hypoglycemia, if unresponsive WITH IV ACCESS & blood glucose less than 70mg/dL. If still unresponsive after 2 minutes, REPEAT x1., 08/15/24 17:18:00 EDT glucose Start: 08/15/24 17:18:00 EDT, Dose = 16 gram(s), = 4 tab(s), Chewed, AsDirected, PRN, Hypoglycemia, DIABETIC PATIENT if responsive & blood glucose less than 70mg/dL. If blood glucose less than 70mg/dL after 15 minutes, REPEAT x1., 0, 08/15/24 17:1... glycerin (glycerin adult rectal suppository) Start: 08/15/24 17:18:00 EDT, Dose = 1 supp, Supp, Rectal, Daily, PRN, Constipation, 08/15/24 17:18:00 EDT magnesium hydroxide (Milk of Magnesia) Start: 08/15/24 17:18:00 EDT, Dose = 30 mL, Susp-Oral, PEG, qDay, PRN, Constipation, 08/15/24 17:18:00 EDT ondansetron (Zofran ODT) Start: 08/18/24 8:47:00 EDT, Dose = 4 mg, = 1 tab(s), Oral, q8h, PRN, Nausea/Vomiting, Disintegrating Tablet, 08/18/24 8:47:00 EDT polyethylene glycol 3350 (Miralax Powder Packet) Start: 08/15/24 17:18:00 EDT, Dose = 17 gram(s), = 15 mL, PEG, qDay, PRN, Constipation, 08/15/24 17:18:00 EDT One Time Meds: None Active IV Meds: None Problems (6) CVA (cerebral vascular accident) (120614096) Diabetes mellitus (431769827) Dysphagia (65804812) Hyperlipidemia (09698367) Hypertension (6650158956) Osteoarthritis (9586492092) ASSESSMENT/PLAN: Acute right basal ganglia hemorrhage with surrounding mass effect and midline shift. This was noted on second CT of head completed due to left-sided weakness and slurred speech. CTA of head and neck showing mid right M1 occlusion however patient not a TNK candidate. During hospitalization noted to be with increased drowsiness prompting repeat CT of head showing no significant change, evolving changes of right basal ganglia infarct and petechial hemorrhage with stable mass effect and midline shift. MRI of brain completed showing hemorrhage infarct involving right basal ganglia with surrounding edema, mass effect with effacement right lateral ventricle and midline shift to left with tiny infarct in right cerebellum. 08/12 underwent thrombectomy with NSGY and revascularization. Neurology did discontinue aspirin and home Eliquis continued. Continues on statin along with blood pressure and diabetic control as well. Follow-up with neurology 10/08 Urinary tract infection with Klebsiella, ceftriaxone during hospitalization. Has completed antibiotic course. Nonbleeding gastric ulcer and erosive gastropathy noted on EGD completed. May need to consider PPI during send facility as this is not noted to be on regimen presently. Left-sided hemiparesis, will continue acute inpatient physical and Occupational Therapy. DVT prophylaxis, does have home Eliquis which was reinitiated during hospitalization at 5 mg twice daily. Hyperlipidemia, high-dose statin in place. Tolerating Hypothyroidism continuing levothyroxine 75 mcg daily. Atrial fibrillation, Eliquis and metoprolol dosing in place. Heart rates are stable with no cardiac complaints. Dysphagia, did fail MBS during hospitalization with PEG tube placement completed. Presently on bolus feed recommendations per dietary team. Speech therapy/dietary following. Free Paez protocol initiated with ice chips only. Daytime somnolence. Per patient's was often taking naps at various times during the day at home prior to hospitalization. Will monitor for ability to participate with therapy moving forward. History of urge incontinence, home oxybutynin held during hospitalization Generalized weakness along with left-sided hemiparesis requiring acute inpatient physical Occupational Therapy along speech therapy with close medical percent. Nausea, as needed Zofran available. Denies any GI upset. Oral thrush, Diflucan completed 08/25, nystatin completed on 09/01. No further symptoms. Trial of tube feeding to the bolus feeds initiated per dietary recommendation, appreciate their input. We are monitoring tolerance closely. Monitoring blood sugars with recent medication adjustments Due to ongoing hyperglycemia, glimepiride was increased to 4 mg twice daily with recent initiation of metformin 500 mg once daily with close monitoring of blood sugars. Monitoring closely with the recent change in tube feeding orders. Accuchecks in place 3 times a day with sliding scale insulin. Recent hemoglobin A1c at 8.4%. Monitoring blood sugars closely. Follow-up with neurosurgery 10/08 Philippe Roberts protocol in place with ice chips only, FEES test completed, remains n.p.o. with bolus tube feeds 6 times per day, holding bolus feeds residuals greater than 200 cc. Left upper extremity pain, x-rays negative, Tylenol effective. Dysphagia with recent trial and bolus feedings, reassessing from a dietary standpoint due to elevated residuals Hyponatremia improved to 138, monitoring lab work Cognitive impairment post CVA, Aricept initiated with close reevaluation Overactive bladder oxybutynin was reinitiated with very close follow-up on her cognition given some cognitive impairment post CVA Episode of grogginess with fatigue 09/02, repeat CT head was obtained showing evolving right basal ganglia hemorrhage, small vessel ischemic disease, no evidence of new bleed tolerating this point the Eliquis therapy Lisinopril discontinued due to hypotension, monitor blood pressures closely. Showed improvement within the past 24 hours DC oxybutynin due to potential side effects Increase metformin to 500 twice daily CBC BMP B12 liver enzymes within normal limits, mild BUN elevation to 30, PEG tube nutrition with free water flushes in place as well as dietary team following Medications reviewed and up to date This document was transcribed using dictation software and may contain typographical errors. I, Anjelica Grover RN, am scribing for , and in the presence of Dr. Hutton. I, Dr. Hutton, personally performed the services described in this documentation, as scribed by, Anjelica Grover RN in my presence and it is both accurate and complete. Digitally Signed by NANDO HUTTON DO on 09/05/2024 08:57 AM Tyler Garcia 09-03-2024 Note Subjective Patient states that she is feeling okay today. She denies having any pain. Denies headache. Patient really not offering a whole lot of information. at bedside does state that she had a session with therapy and was seen by Dr. Gibson from neuropsychology, states that after that visit she became very lethargic and was really not answering a whole lot of questions. states that he is exactly unsure what caused this as she had been doing perfectly fine on Monday. He states that she still is not back at her baseline yet Objective General: Laying in bed with at bedside, patient really offering a whole lot of information but does answer yes to some of my questions. Most information obtained from bedside. Eyes closed, poor eye contact. Calm. No behaviors HEENT: MMM. EOMI. No nasal drainage Respiratory: Lungs clear nonlabored on room air; no cough or congestion Cardiovascular: HRR; no tachycardia; no murmur Edema/Varicosities of Extremities: No edema BLE Gastrointestinal: Bowel sounds present x 4; abdomen soft/nondistended/nontender Genitourinary: No CVA tenderness, no suprapubic tenderness, no bladder distention Skin: PEG tube in place with no signs/symptoms of infection at insertion area Neuro: Left upper extremity hemiparesis VITALS [id number](kg ) 09/03 00:2636.3--686805IQ 09/02 21:5136.2--517106MT 09/02 16:56----88--98RA 09/02 10:40 RA 09/02 09:0936.0--501720IH 24 Hr Tmax: 37.0 at 09/02 05:55 36 Hr Tmax: 37.0 at 09/02 05:55 Vital Signs are the last 5 in the past 48 hours. Weights display the last 5 within 7 days. Initial Wt: 08/15 75.4 kg 166 lb Current Wt: 08/26 76.0 kg 167 lb LABS No 36 Hour Lab Data Medications Active Inpt Meds: apixaban Start: 08/15/24 21:00:00 EDT, Dose = 5 mg, = 1 tab(s), PEG, BID, Indication for Use Treatment of VTE/PE ( Acute ), 0, 08/15/24 17:09:00 EDT atorvastatin Start: 08/15/24 22:00:00 EDT, Dose = 80 mg, = 1 tab(s), PEG, Daily, 08/15/24 17:09:00 EDT balsam Lela-castor oil topical (Venelex 788 mg-87 mg/g topical ointment) Start: 08/16/24 21:00:00 EDT, Dose = 1 dahlia, Topical, qHS, Apply to: Heels, Ointment, 08/16/24 7:20:00 EDT donepezil (Aricept) Start: 08/26/24 21:00:00 EDT, Dose = 5 mg, = 1 tab(s), Oral, qHS, 08/26/24 15:15:00 EDT emollients, topical (emollients (Eucerin Lotion) Lotion) Start: 08/16/24 9:00:00 EDT, Dose = 1 appl, Topical, BID, Apply to: Legs, Lotion, 08/16/24 7:19:00 EDT glimepiride Start: 08/29/24 17:00:00 EDT, Dose = 4 mg, = 2 tab(s), PEG, BID, 0, 08/29/24 10:01:00 EDT insulin lispro (HumaLOG) (HumaLOG 100 units/mL subcutaneous solution) Start: 08/23/24 12:00:00 EDT, Give 0-6 units/dose, Subcutaneous, TIDAC, 0, 08/23/24 8:27:00 EDT levothyroxine Start: 08/16/24 7:00:00 EDT, Dose = 75 mcg, = 1 tab(s), PEG, qDay, 0, 08/15/24 17:09:00 EDT lisinopril Start: 08/31/24 9:00:00 EDT, Dose = 2.5 mg, = 1 tab(s), PEG, qDay, Hold if SBP (mmHg) < 110, 08/31/24 9:00:00 EDT menthol-zinc oxide topical (Calmoseptine or equivalent topical ointment) Start: 08/16/24 7:20:00 EDT, Dose = 1 dahlia, Topical, amhs, Apply to: Bilateral buttock/coccyx, Ointment, 08/16/24 7:20:00 EDT metFORMIN (metFORMIN 500 mg oral tablet (IR)) Start: 08/22/24 10:02:00 EDT, Dose = 500 mg, = 1 tab(s), PEG, qDayM, 08/22/24 10:02:00 EDT metoprolol (metoprolol tartrate 50 mg oral tablet) Start: 08/15/24 17:09:00 EDT, Dose = 50 mg, = 1 tab(s), PEG, BID, Hold if SBP (mmHg) < 110, 1st dose location: [facility], 1, 08/15/24 17:09:00 EDT oxybutynin (oxybutynin 5 mg oral tablet) Start: 08/27/24 15:17:00 EDT, Dose = 5 mg, = 1 tab(s), Oral, BID, 08/27/24 15:17:00 EDT Active PRN Meds: Al hydroxide/Mg hydroxide/simethicone (Maalox) Start: 08/15/24 17:18:00 EDT, Dose = 30 mL, Susp, PEG, q6h, PRN, Indigestion, 0, 08/15/24 17:18:00 EDT acetaminophen (Tylenol) Start: 08/15/24 17:18:00 EDT, Dose = 650 mg, = 2 tab(s), PEG, q4h, PRN, Muscle pain, 08/15/24 17:18:00 EDT docusate (Colace) Start: 08/15/24 17:44:00 EDT, Dose = 100 mg, = 10 mL, PEG, BID, PRN, Constipation, 0 glucagon (GlucaGen) Start: 08/15/24 17:18:00 EDT, Dose = 1 mg, = 1 mL, Intramuscular, AsDirected, PRN, Hypoglycemia, if unresponsive, NO IV ACCESS & blood glucose less than 70mg/dL. If still unresponsive after 2 minutes, REPEAT x1., 1st dose location: [facility], 0, 08/15/24 1... glucose (Dextrose 50% IV Push) Start: 08/15/24 17:18:00 EDT, Dose = 12.5 gram(s), = 25 mL, IV Push, AsDirected, PRN, Hypoglycemia, if unresponsive WITH IV ACCESS & blood glucose less than 70mg/dL. If still unresponsive after 2 minutes, REPEAT x1., 08/15/24 17:18:00 EDT glucose Start: 08/15/24 17:18:00 EDT, Dose = 16 gram(s), = 4 tab(s), Chewed, AsDirected, PRN, Hypoglycemia, DIABETIC PATIENT if responsive & blood glucose less than 70mg/dL. If blood glucose less than 70mg/dL after 15 minutes, REPEAT x1., 0, 08/15/24 17:1... glycerin (glycerin adult rectal suppository) Start: 08/15/24 17:18:00 EDT, Dose = 1 supp, Supp, Rectal, Daily, PRN, Constipation, 08/15/24 17:18:00 EDT magnesium hydroxide (Milk of Magnesia) Start: 08/15/24 17:18:00 EDT, Dose = 30 mL, Susp-Oral, PEG, qDay, PRN, Constipation, 08/15/24 17:18:00 EDT ondansetron (Zofran ODT) Start: 08/18/24 8:47:00 EDT, Dose = 4 mg, = 1 tab(s), Oral, q8h, PRN, Nausea/Vomiting, Disintegrating Tablet, 08/18/24 8:47:00 EDT polyethylene glycol 3350 (Miralax Powder Packet) Start: 08/15/24 17:18:00 EDT, Dose = 17 gram(s), = 15 mL, PEG, qDay, PRN, Constipation, 08/15/24 17:18:00 EDT One Time Meds: None Active IV Meds: None Problems (6) CVA (cerebral vascular accident) (100158026) Diabetes mellitus (835047645) Dysphagia (29111734) Hyperlipidemia (88110273) Hypertension (6368433731) Osteoarthritis (6247689183) ASSESSMENT/PLAN: Acute right basal ganglia hemorrhage with surrounding mass effect and midline shift. This was noted on second CT of head completed due to left-sided weakness and slurred speech. CTA of head and neck showing mid right M1 occlusion however patient not a TNK candidate. During hospitalization noted to be with increased drowsiness prompting repeat CT of head showing no significant change, evolving changes of right basal ganglia infarct and petechial hemorrhage with stable mass effect and midline shift. MRI of brain completed showing hemorrhage infarct involving right basal ganglia with surrounding edema, mass effect with effacement right lateral ventricle and midline shift to left with tiny infarct in right cerebellum. 08/12 underwent thrombectomy with NSGY and revascularization. Neurology did discontinue aspirin and home Eliquis continued. Continues on statin along with blood pressure and diabetic control as well. Follow-up with neurology 10/08 Urinary tract infection with Klebsiella, ceftriaxone during hospitalization. Has completed antibiotic course. Nonbleeding gastric ulcer and erosive gastropathy noted on EGD completed. May need to consider PPI during send facility as this is not noted to be on regimen presently. Left-sided hemiparesis, will continue acute inpatient physical and Occupational Therapy. DVT prophylaxis, does have home Eliquis which was reinitiated during hospitalization at 5 mg twice daily. Hyperlipidemia, high-dose statin in place. Tolerating Hypothyroidism continuing levothyroxine 75 mcg daily. Atrial fibrillation, Eliquis and metoprolol dosing in place. Heart rates are stable with no cardiac complaints. Dysphagia, did fail MBS during hospitalization with PEG tube placement completed. Presently on bolus feed recommendations per dietary team. Speech therapy/dietary following. Kerwin Paez protocol initiated with ice chips only. Daytime somnolence. Per patient's was often taking naps at various times during the day at home prior to hospitalization. Will monitor for ability to participate with therapy moving forward. History of urge incontinence, home oxybutynin held during hospitalization Generalized weakness along with left-sided hemiparesis requiring acute inpatient physical Occupational Therapy along speech therapy with close medical percent. Nausea, as needed Zofran available. Denies any GI upset. Oral thrush, Diflucan completed 08/25, nystatin completed on 09/01. No further symptoms. Trial of tube feeding to the bolus feeds initiated per dietary recommendation, appreciate their input. We are monitoring tolerance closely. Monitoring blood sugars with recent medication adjustments Due to ongoing hyperglycemia, glimepiride was increased to 4 mg twice daily with recent initiation of metformin 500 mg once daily with close monitoring of blood sugars. Glimepiride increased to 4 mg twice daily on 08/29. Monitoring closely with the recent change in tube feeding orders. Accuchecks in place 3 times a day with sliding scale insulin. Recent hemoglobin A1c at 8.4%. Monitoring blood sugars closely. Follow-up with neurosurgery 10/08 [address] in [address] with ice chips only, FEES test completed, remains n.p.o. with bolus tube feeds 6 times per day, holding bolus feeds residuals greater than 200 cc. Left upper extremity pain, x-rays negative, Tylenol effective. Dysphagia with recent trial and bolus feedings, reassessing from a dietary standpoint due to elevated residuals Hyponatremia improved to 135, monitoring lab work Cognitive impairment post CVA, Aricept initiated with close reevaluation Overactive bladder oxybutynin was reinitiated with very close follow-up on her cognition given some cognitive impairment post CVA Episode of grogginess with fatigue yesterday, repeat CT head was obtained showing evolving right basal ganglia hemorrhage, small vessel ischemic disease, no evidence of new bleed tolerating this point the Eliquis therapy Soft blood pressures discontinue lisinopril Of note oxybutynin was readded by primary team will see if they want to keep this in place with some of the intermittent confusion Medications reviewed and up to date This document was transcribed using dictation software and may contain typographical errors. Jhonatan Roe RN, am scribing for , and in the presence of Dr. Hutton. I, Dr. Hutton, personally performed the services described in this documentation, as scribed by, Jhonatan ENRIQUEZ in my presence and it is both accurate and complete. Digitally Signed by NANDO HUTTON DO on 09/05/2024 08:57 AM [facility] Note Exam Date Time Procedure Performing Provider Status 09/02/24 2:[address] Head or Brain w/o Contrast Brenda MCCLELLAN MD; Auth (Verified) [id number] ORIGINAL HISTORY: Lethargy COMPARISON: No TECHNIQUE: Routine [...] Date: 09/02/2024 3:10:44 PM Ordering Provider: SILVINO Garcia04-18-2025 Telephone encounter Note* Telephone Encounter - Fouzia Miller LPN - 08/30/2024 10:09 AM EDT Marya with [facility] notified. [facility]04-18-2025 Miscellaneous Notes* Telephone Encounter - Fouzia Miller LPN - 08/30/2024 10:09 AM EDT Marya with [facility] notified. * Telephone Encounter - Mj Glover APRN.CNP - 08/30/2024 9:19 AM EDT Please let HH know that Dr. Caruso's team will follow HH orders. Okay to proceed. Mj Glover APRN.GARRETT * Telephone Encounter - Jaiden Paulino, RN - 08/30/2024 9:07 AM EDT Marya- [facility] reports patient was in [facility] with dx: stroke, and transferred to [facility]. [facility] home with [facility] SN PT OT [facility]. Asking if pcp agreeable to follow for [facility]. Please phone Marya with verbal: [phone] [address] Telephone encounter Note * Telephone Encounter - Mj Glover APRN.CNP - 08/30/2024 9:19 AM EDT Please let know that Dr. Caruso's team will follow orders. Okay to proceed. Mj Glover APRN.[employer] [facility]04-18-2025 Telephone encounter Note* Telephone Encounter - Jaiden Paulino RN - 08/30/2024 9:07 AM EDT [facility] reports patient was in [facility] with dx: stroke, and [facility]. [facility] to home with [facility] SN PT OT [facility] & [facility]. Asking if pcp agreeable to follow for [facility]. Please phone Marya with verbal: [phone] [facility]04-14-2025 Note REFERRING PHYSICIAN: Silvino Ha DO. CONSULTING PSYCHOLOGIST: Matthew Gibson, PhD. REASON FOR REFERRAL: Neuropsychological exam. HISTORY OF PRESENT ILLNESS: Ms. Acuna is a 78-year-old right-handed white female admitted to [facility] from [facility] on 08/15/2024 after developing left-sided weakness and slurred speech. Initially seen at [facility] where brain CT was negative.CTA then showed a right middle cerebral artery branch infarction, but she was outside of the TNK window. She was transferred to [facility] for further management. She developed a post infarction hemorrhage of the right basal ganglia with mass and shift effects. She underwent a thrombectomy on 08/02/2024 with revascularization successful. She developed dysphagia and is on NPO. She has a PEG tube placed. Serial scanning including MRI shows no further progression of the infarction or bleed, but did show a small right cerebellar acute infarction. Cardiac workup was benign. A1c was elevated at 7.4. In the hospital, she developed UTI, placed on ceftriaxone after cultures found Klebsiella. She developed blood in her stool and an upper endoscopy showed gastric ulcer with erosion. Eliquis was stopped andshe was taking only 81 mg aspirin. PAST MEDICAL HISTORY: Includes coronary artery disease, type 2 diabetes, atrial fibrillation, hypertension, hyperlipidemia. The patient has several mild concussions suffered after a career in [employer]. No residual deficits reported. No other DIRECTOR [employer]IN[employer] injuries or illnesses. MENTAL HEALTH HISTORY: No reported past mental health history. CURRENT MEDICATIONS: Reviewed. She is on no psychotropics. Currently takes apixaban, atorvastatin, glimepiride, levothyroxine, lisinopril, and metoprolol. INTERVIEW RESULTS: Ms. Acuna's was visiting. He assisted in the history. Cognitively, sheagrees she is having significant problems with all of her thinking skills. She states she had normal mentation premorbidly, states otherwise. Was very concerned she had dementia, but she refused to get a workup. Despite his concerns about her memory, she was still doing her meds and the family finances, but he states he supervised. She was still driving. Emotionally, Ms. Acuna denies any depression, anxiety, or irritability. She made jokes throughoutthe interview consistent with this report. states she is in good spirits. Sleep is rated asadequate. Appetite indeterminate because of NPO. and Mrs. Acuna live in [place]. 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 She has a high school diploma from her hometown in [place], [place]. TEST RESULTS: I used the Cognistat, RBANS, Form C and Amado IV tests noted below. She is ambidextrous but used her right hand. Provided good effort. ATTENTION: She is alert and oriented to person and city, but cannot recall the name of the facilityand listed the date in March 1926. Verbal complex attention is impaired on the upper limit only,moderately. She can recall 4 numbers reversed with mistakes on some tries instead of 6. Visual attention span is impaired on the upper limit only, 5 visual units recalled with mistakes on some tries instead of 6. LANGUAGE: Auditory comprehension is normal for following 3-step commands. She made a mild number ofmistakes repeating complex phrases. Normal naming screen 10/10 correct. VISION AND MOTOR SKILLS: Visual design copy contained mild fine detail mistakes scattered on both sides due to some impulsivity. She had a mild deficit score on the line angle perception test 6/10 correct. MEMORY: Visual memory is severely impaired, 0 recall of the visual design after 15 minutes. Verbal memory storage for a list of 5 words is normal, 3 tries to learn it consecutively. Fifteen minutes later, she is unable to recall any words, a severe score. EXECUTIVE FUNCTIONS: Verbal everyday reasoning based on the judgment test scored in the moderate deficit range 4/10 points. Mildly impaired on cognitive estimates, 5/6 items correct on this measure of verbal novel everyday reasoning. She had a mild deficit score on matrix reasoning, a visual reasoning measure. CONCLUSIONS: Results of cognitive testing reveal severe deficits in verbal and visual memory. Milder deficits are seen on the upper limits of verbal and visual attention, visual perception, impulse control, repeating complex phrases. She also had mild to moderate deficit scores on verbal and visualreasoning. has significant concerns about premorbid dementia supported by the severe verbal and visualmemory deficits seen today. Uncertain how much of her current cognitive deficits in other areas arealso due to dementia versus the infarction/hemorrhage. Recommend cognitive therapy. Repeat testing in a week. Predict she will need help with 24-hour supervision, but should not need 24-hour supervision. She is high risk for falls. After discussion, Ms. Acuna agreed to donepezil, a memory-supporting medicine. I will repeat testing in a week. I thank Dr. Ha. 60 minutes FINAL DIAGNOSES: 1. 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 2. Probable premorbid dementia, probable Alzheimer's to be determined. MATTHEW GIBSON, PhD GM/NTS JOB#: [id number] DICTATION ID#: [id number] Digitally Signed by MATTHEW GIBSON PhD on 08/27/2024 08:21 AM [facility] [id number] Note* Exam Date Time Procedure Performing Provider Status 08/25/24 1:46 PM XR Hand and Wrist 6 Views Left Buck DUNNE DO; Auth (Verified) [id number] ORIGINAL EXAMINATION: 3 XRAY VIEWS OF THE [...] Date: 08/25/2024 2:27:26 PM Ordering Provider: JACKLYN Garcia04-13-2025 Note* Exam Date Time Procedure Performing Provider Status 08/25/24 1:45 PM XR Shoulder Minimum 2 Views Left JAMAR DUNNE DO; Auth (Verified) [id number] ORIGINAL EXAMINATION: TWO XRAY VIEWS OF THE [...] Date: 08/25/2024 2:26:45 PM Ordering Provider: JACKLYN Garcia04-13-2025 Note* Exam Date Time Procedure Performing Provider Status 08/25/24 1:43 PM XR Humerus Minimum 2 Views Left JAMAR DUNNE DO; Auth (Verified) [id number] ORIGINAL EXAMINATION: TWO XRAY VIEWS OF THE [...] Date: 08/25/2024 2:26:11 PM Ordering Provider: JACKLYN Garcia04-06-2025 Note* Exam Date Time Procedure Performing Provider Status 08/18/24 3:08 PM XR Chest 1 View Contributor_system, FUJ I; Auth (Verified) [id number] ORIGINAL EXAMINATION: ONE XRAY VIEW OF THE [...] Sign Date: 08/18/2024 3:14:15 PM Ordering Provider: NANOD Garcia04-04-2025 Evaluation + Plan noteExtracted from: Title:Clinical Document Author:EZEQUIEL HUSTON RN-[employer] MECH[employer]IC Date:08/16/24 Acute Inpatient Rehab Histor y and Physical Date of Service: 08/16/2024 Date of Admission: 08/15/2024 Attending Physician: Dr. Ha [facility] 1.1 left body involvement, right brain stroke Etiologic Diagnosis Hemorrhagic infarct involving right basal ganglia, mass effect with effacement of right lateral ventricle, tiny infarct in right cerebellum History of Present Illness 78-year-old female noted to home in inpatient rehab from [facility] stay 08/02 - 08/15 who is past medical history of coronary artery disease, diabetes mellitus type 2, atrial relation, hypertension, osteoarthritis, and hyperlipidemia who presented to the emergency room with noted left-sided weakness and slurred speech. She originally presented to [facility] with CT of the head was obtained showed no acute hemorrhage or large territory stroke. CTA showed mid right M1 occlusion however patient was not a TNK candidate. She was then transferred to a [facility] for further management. CT of head showed acute right basal ganglia hemorrhage with surrounding mass effect and midline shift. On 08/02 underwent thrombectomy with NSGY with FABIAN ICI TB revascularization. Postoperatively she did fail her modified barium swallow on 08/06. On 08/01 7 GI was consulted and PEG tube was placed on 08/08. Stay was then complicated by increased fatigue and drowsiness. Repeat CT of head obtained showed no significant change with evolving changes of right basal ganglia infarct and petechial hemorrhage with stable mass effect or midline shift. MRI of the brain obtained showing hemorrhagic infarct involving the right basal ganglia and surrounding edema, mass effect with effacement of right lateral ventricle and midline shift to left with tiny infarct in right cerebellum. TTE performed showed ejection ration of 65-70%, hemoglobin A1c found to be 7.8%. Urine was obtained in was positive for urinary tract infection. Initiated on ceftriaxone for culture, infection and Klebsiella. EGD was completed showed none bleeding gastric ulcer and erosive gastroscopy. Aspirin was continued at that time and home Eliquis was initiated 5 mg twice daily. Home oxybutynin held on discharge. PEG tube remains in place and receiving continuous feedings. Patient deemed medically stable transferred to [facility] inpatient rehab unit for physical and occupational therapy as well as medical supervision. Due to the fact that he had impairments of gait mobility ADLs and self-care and medical complexity, decision was made to admit her to the acute physical rehabilitation unit. Today, patient is sitting up in bed with at bedside. She denies any pain. SOB has had Tylenol for breakthrough pain and states this has been effective. No edema to the bilateral lower extremities. Lungs are clear to auscultation, SpO2 is currently ranging 92-96% on room air. She denies any cough or congestion states breathing is comfortable. Denies any lightheadedness, dizziness, chest pain, or chest pressure. Denies any active bleeding with the Eliquis on board. She does remain with some left-sided hemiparesis with 0/5 strength to the left upper extremity with slight left facial weakness and slurred speech. She has 4+/5 strength to the right upper and lower extremity. She reports her bowels are moving states he did have a bowel movement yesterday. Denies any urinary urgency, frequency, or dysuria. She states he lives at home with her spouse in a single level home. Baseline functional status is independent. Admit functional status is currently at modified independence. Medications (15) Active Scheduled: (6) apixaban 5 mg tablet 5 mg 1 tab(s), PEG, BID atorvastatin 80 mg tablet 80 mg 1 tab(s), PEG, Daily glimepiride 2 mg Tablet 2 mg 1 tab(s), PEG, qDay levothyroxine 75 mcg tablet 75 mcg 1 tab(s), PEG, qDay lisinopril 10 mg tablet 10 mg 1 tab(s), PEG, qDay metoprolol tartrate 50 mg tablet 50 mg 1 tab(s), PEG, BID Continuous: (0) PRN: (9) acetaminophen 325 mg Tablet 650 mg 2 tab(s), PEG, q4h Al hydrox/Mg hydrox/simethicone 200-200-20 mg/5 mL Susp UD 30 mL, PEG, q6h dextrose 50% Solution Disp syringe 50 mL 12.5 gram(s) 25 mL, IV Push, AsDirected docusate 10 mg/mL Liq 10mL UD 100 mg 10 mL, PEG, BID glucagon recombinant 1 mg 1 mg 1 mL, Intramuscular, AsDirected glucose 4 gm Chewable 4 tab(s), Chewed, AsDirected glycerin adult Suppository 1 supp, Rectal, Daily magnesium hydroxide 8% Suspension 30 mL UD 30 mL, PEG, qDay polyethylene glycol 3350 - UD packet 17 gram(s) 15 mL, PEG, qDay Review of Systems Constitutional: Denies weight changes fever or chills. Denies headache HEENT: Denies nystagmus and dizziness. Respiratory: Denies cough or congestion Cardiovascular: Denies chest pain, chest pressure, or heart palpitations Gastrointestinal: Denies nausea with emesis. PEG tube intact. Genitourinary: Denies dysuria or urinary retention Neurological: Denies any cognitive deficits Musculoskeletal: Denies any joint or musculoskeletal pain Skin: Denies rashes or erythema. PEG tube intact Endocrine: Denies hot or cold intolerance. No hypoglycemia. Psychiatric: Denies changes in mental status. Allergic/immunologic: Denies environmental allergies or immune dysfunction Past Medical History: Coronary artery disease Diabetes mellitus type 2 Atrial relation Hypertension Hyperlipidemia Osteoarthritis Procedure/Surgical History: Denies any past surgical history Social History: Alcohol Details: Frequency: Denies any alcohol use Home/Environment Details: Domestic Concerns: None. Living situation: Lives with spouse, first- floor set up. Primary Signal Maintainer: Self. Safe place to go: Yes. Lives In: Single level home, 1st floor bedroom, 1st floor bathroom. 3 steps to enter home. Current Home Treatments None. Professional Skilled Services or Special Community Resources None. Financial concerns: No. marital status: Nutrition/Health Details: Appetite Good. Sexual Details: Sexually active: Yes. Substance Abuse Details: Type: Denies any substance abuse Tobacco Details: Nicotine Use: Denies any tobacco use Family History: Denies family history of known cardiovascular/pulmonary disease Allergies: Perfume Nasal cocaine Codeine Sulfa drugs Code Status: Full code Physical Exam General appearance: Alert and oriented x 4. Seen up in bed. Appears control, and does not appear in acute pain. Pleasant and cooperative. Good eye contact flat affect. Answers questions appropriately Head: Normocephalic no evidence of trauma HEENT: Pupils equal and reactive to light and accommodation, no erythema. Ears with no external lesions or discharge. Nose clear, nares patent, no discharge. Throat normal healthy definition, no redness or erythema. Neck: Trachea midline. No lymphatic adenopathy Cardiac: Heart irregular, rate controlled, no rubs or murmurs. No bradycardia tachycardia, or heart murmur Lungs: Clear to auscultation. No respiratory distress on room air. Abdomen: Soft, nontender, no organomegaly or rebound tenderness. Positive bowel sounds Musculoskeletal: Intact range of motion, no erythema, mild polyarthritis Extremities: No edema or calf tenderness Neurological: Cranial nerves intact. No nystagmus. 0/5 strength to the left upper extremity. 4+/5 strength to the right upper extremity. 0/5 strength to the left lower extremity, 4+/5 strength to the right lower extremity. Left facial weakness, slurred speech Skin: No current wounds/rashes observed. PEG tube intact, no signs/symptoms of infection at surrounding area Psychiatric: Mood good. No anxiety or depression Vitals Signs(Last 24 hrs)__Last Charted Minimum Maximum Heart Rate80(AUG 15 20:06)80(AUG 15 20:06)80(AUG 15 20:06) [id number](AUG 16 00:03)128(AUG 16 00:03)140(AUG 15 17:47) DBP76(AUG 16 00:03)76(AUG 16 00:03)80(AUG 15 17:47) 36hr Labs 08/15 1805 Blood Glucose, [id number] Blood Glucose, [id number] Blood Glucose TSee Flowsheet Assessment/Plan Debility and functional decline with hemorrhagic infarct. Consulted with PT, OT, and ST services for gait assistance, strengthening, mobility, and dysphagia Hemorrhagic infarct involving the right basal ganglia with surrounding edema, mass effect with effacement of the right lateral ventricle and midline shift, as well as right cerebellum infarct. Cleared for reinitiation of Eliquis 5 mg twice daily. Consulting PT, OT, and ST services Left-sided hemiparesis as well as left-sided facial weakness. PT, OT, and ST services Dysphagia, on Glucerna 1.2 at 75 mL an hour, okay to hold tube feed for 3 hours per therapy services. Monitoring blood sugars every 6 hours while on tube feed nutrition Diabetes mellitus type 2 with most recent hemoglobin A1c of 7.8%. Continues on glimepiride. Monitoring blood sugars every 6 hours Atrial fibrillation, continues on Eliquis 5 mg twice daily with metoprolol for rate control. Coronary artery disease, continues on high-dose statin Hypothyroidism, continues on Synthroid Hypertension on lisinopril 10 mg daily. Monitoring blood pressures closely while also on the metoprolol Acute pain, as the as needed Tylenol in place as needed DVT prophylaxis, Eliquis 5 mg twice daily BMP and CBC today per medical team Gait, ability, ADL self-care and strengthening. Medical management of comorbidities Goal is to discharge home with spouse and home health care services, team staffing regarding further goals plan of care and length of stay Condition complex, medically stable Medical Comorbidities at the Time of Admission Acute right basal ganglia hemorrhage Coronary artery disease Diabetes mellitus type 2 Atrial fibrillation Hypertension Hyperlipidemia Osteoarthritis Dysphagia Left-sided hemiparesis Barriers to Discharge Functional medical impairments Consulting Physician Dr. Hutton Estimated Length of Stay 2-3 weeks This document was transcribed using dictation software and may contain typographical errors. Anjelica Roe RN, am scribing for, and in the presence of Miguel Huston CNP. IMiguel CNP, personally performed the services described in this documentation, as scribed by, Anjelica Grover RN in my presence and it is both accurate and complete. [facility] 04-04-2025 Physical medicine and rehab Consult note INPATIENT REHAB MEDICAL CONSULT DATE OF ADMISSION: 08/16/2024 CC: Acute right basal hemorrhage HISTORY OF PRESENT ILLNESS: This is a 78-year-old female admitted to [facility] inpatient rehab unit from [facility] stay 08/02 - 08/15 who has a history of CAD, DM2, atrial fibrillation and hypertension who presented to the ER after notingleft-sided weakness and slurred speech. Originally presented to [facility] where CT head was obtained showing no acute hemorrhage or large territory stroke. CTA showing mid right M1 occlusion, patient was not a TNK candidate. Patient was transferred to [facility]. On 08/02 patient underwent thrombectomy with NSGY with TICI 2B revascularization. CT head showing acute right basal ganglia hemorrhage with surrounding mass effect and midline shift. 08/06 patient did fail modified barium swallow with speech therapy following. On 08/01 7 GI was consulted and on 08/09 a PEG tube was placed. Patient was also noted to be more drowsy and repeat CT of head was obtained showing no significant change with evolving changes of the right basal ganglia infarct and petechial hemorrhage with stable mass effect and midline shift. MRI of the brain obtained showing hemorrhage infarct involving right basal ganglia a nd surrounding edema, mass effect with effacement right lateral ventricle and midline shift to the left with tiny 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 TTE showing ejection fraction 65 to 70%. Hemoglobin A1c 7.8%. Patient was diagnosed with a UTI with culture positive for Klebsiella, completed course ofIV ceftriaxone. EGD showed nonbleeding gastric ulcer with erosive gastropathy. Aspirin discontinued. Home Eliquis was continued. Home oxybutynin was held as well. Patient was deemed medically stable and transferred to [facility] inpatient rehab unit for physical and occasional therapy as well as medical supervision. Today, patient does have poor eye contact, not really offering a whole lot of informa tion. is at bedside. Patient states that she is very tired and fatigued. states this is chronic and she did nap frequently throughout the day when she was at home. Patient tells me she is sleeping well at night. Lungs are diminished, does have some shallow breathing. SpO2 94-96% on room air. Patient denies any cough or congestion. PEG tube is in place, area looking good without signs of infection. Glucerna continuous running at this time at 75 mL an hour. Blood sugar 246, monitoring every 6 hours. Patient does have 4/5 strength of the right upper and lower extremity, able to wiggle left toes slightly but no left upper extremity movement. Recent lab work with WBC 11.9, hemoglobin 13.5, platelet 252, sodium 135, Tessman 4.8, BUN 51, creatinine 1.27, magnesium 1.6. Follow-up labs pending. Patient denies chest pain, shortness of breath, nausea, vomiting, constipation, or diarrhea. Hospital medications, labs, and diagnostics were reviewed and reconciled. PAST MEDICAL HISTORY: CAD Diabetes mellitus type 2 Atrial fibrillation Hyperlipidemia Hypertension Osteoarthritis PAST SURGICAL HISTORY: Denies prior surgical history SOCIAL HISTORY: Lives at home with spouse with first-floor set up. Denies tobacco, alcohol, or illicit drug use FAMILY HISTORY: Denies family history involving cardiovascular or pulmonary disease CODE STATUS: Full code ALLERGIES: Cocaine nasal, codeine, perfume, sulfa drugs BMI-26.03 WT-75.4 kg Vitals Signs(Last 24 hrs)__Last Charted Minimum Maximum Heart Rate80(AUG 15 20:06)80(AUG 15 20:06)80(AUG 15 20:06) [id number](AUG 16 00:03)128(AUG 16 00:03)140(AUG 15 17:47) DBP76(AUG 16 00:03)76(AUG 16 00:03)80(AUG 15 17:47) REVIEW OF SYSTEMS: General: The patient appears frail and debilitated requiring assistance with activities of daily living including mobility. Constitutional: Tolerating tube feeds. Increased fatigue and tiredness. Sleeping at night and napping throughout the day. Denies pain. No fever. No chills. HEENT: Eyes: No blurring, discharge, or pain. ENT: No congestion, discharge or epistaxis. Respiratory: No cough, no dyspnea. No hemoptysis. Cardiovascular: No chest pain. No claudication. No paroxysmal nocturnal dyspnea. Gastrointestinal: No constipation, diarrhea, nausea, vomiting or abdominal pain. No dysphagia. Genitourinary: No dysuria, frequency or urgency. Neurological: No new focal weakness. No seizure or tremor. Musculoskeletal: No contractures or altered range of motion. Endocrine: No hot or cold intolerance. No hypoglycemia. Mental Status: No changes in mental status. PHYSICAL EXAMINATION: HEENT: Eyes: Poor eye contact. Extraocular motions are intact. No nystagmus. ENT: No exudate on tongue or pharynx. No rhinorrhea. Neck: Neck is symmetric without mass, tenderness or rigidity. Trachea is midline. Pulmonary: Breath sounds are diminished with shallow breathing. Chest is symmetric with normal expansion. Respirations are nonlabored. Cardiovascular: HRRR, no MRG, no JVD Peripheral Vascular: No calf pain or tenderness. No cyanosis or clubbing of digits. No edema. Gastrointestinal: Abdomen soft without masses, distention or tenderness. Bowel sounds are positive x4. Genitourinary: No suprapubic tenderness. No bladder distention. Musculoskeletal: Exam shows no misalignment, tenderness or effusion. Motor strength and tone are symmetric. Lymph: No enlargement or tenderness in neck or groin. Skin: No rash, tears or wounds. Neurologic: Cranial nerves II through XII are grossly intact. 4/5 strength of the right upper and lower extremity, left upper extremity with no movement, patient able to wiggle left toes slightly. Balance and coordination are being evaluated by pt/ot Medications (15) Active Scheduled: (6) apixaban 5 mg tablet 5 mg 1 tab(s), PEG, BID atorvastatin 80 mg tablet 80 mg 1 tab(s), PEG, Daily glimepiride 2 mg Tablet 2 mg 1 tab(s), PEG, qDay levothyroxine 75 mcg tablet 75 mcg 1 tab(s), PEG, qDay lisinopril 10 mg tablet 10 mg 1 tab(s), PEG, qDay metoprolol tartrate 50 mg tablet 50 mg 1 tab(s), PEG, BID Continuous: (0) PRN: (9) acetaminophen 325 mg Tablet 650 mg 2 tab(s), PEG, q4h Al hydrox/Mg hydrox/simethicone 200-200-20 mg/5 mL Susp UD 30 mL, PEG, q6h dextrose 50% Solution Disp syringe 50 mL 12.5 gram(s) 25 mL, IV Push, AsDirected docusate 10 mg/mL Liq 10mL UD 100 mg 10 mL, PEG, BID glucagon recombinant 1 mg 1 mg 1 mL, Intramuscular, AsDirected glucose 4 gm Chewable 4 tab(s), Chewed, AsDirected glycerin adult Suppository 1 supp, Rectal, Daily magnesium hydroxide 8% Suspension 30 mL UD 30 mL, PEG, qDay polyethylene glycol 3350 - UD packet 17 gram(s) 15 mL, PEG, qDay REVIEW OF LABS, DIAGNOSTICS Hospital labs and diagnostics reviewed. 36hr Labs 08/15 1805 Blood Glucose, [id number] Blood Glucose, [id number] Blood Glucose TSee Flowsheet ASSESSMENT AND PLAN: actively managed medical problems include Acute right basal ganglia hemorrhage with surrounding mass effect and midline shift. This was notedon second CT of head completed due to left-sided weakness and slurred speech. CTA of head and neck showing mid right M1 occlusion however patient not a TNK candidate. During hospitalization noted to be with increased drowsiness prompting repeat CT of head showing no significant change, evolving changes of right basal ganglia infarct and petechial hemorrhage with stable mass effect and midline shift. MRI of brain completed showing hemorrhage infarct involving right basal ganglia with surroundingedema, mass effect with effacement right lateral ventricle and midline shift to left with tiny infarct in right cerebellum. 08/12 underwent thrombectomy with NSGY and revascularization. Neurology did discontinue aspirin and home Eliquis continued. Continues on statin along with blood pressure and diabetic control as well. Urinary tract infection with Klebsiella, ceftriaxone during hospitalization. Has completed antibiotic course. Nonbleeding gastric ulcer and erosive gastropathy noted on EGD completed. May need to consider PPI during send facility as this is not noted to be on regimen presently. Left-sided hemiparesis, will continue acute inpatient physical and Occupational Therapy. DVT prophylaxis, does have home Eliquis which was reinitiated during hospitalization at 5 mg twice daily. Hyperlipidemia, high-dose statin in place. Hypothyroidism continuing levothyroxine 75 mcg daily. Presently asymptomatic. Atrial fibrillation, Eliquis and metoprolol dosing in place. Heart rates are stable with no cardiaccomplaints. Hypertension, continue lisinopril along with metoprolol dosing. Diabetes type 2, glimepiride [address] Due to tube feeds blood glucose checks every 6 hours and we will recommend addition of sliding scale as levels do appear to have been elevated. Dysphagia, did fail MBS during hospitalization with PEG tube placement completed. Presently on Glucerna at 75 cc/hour. Speech therapy and dietary to follow. Daytime somnolence, patient falling asleep during assessment. Per patient's was often taking naps at various times during the day at home prior to hospitalization. Will monitor for ability toparticipate with therapy moving forward. History of urge incontinence, home oxybutynin held during hospitalization and do not recommend reinitiation here. Generalized weakness along with left-sided hemiparesis requiring acute inpatient physical Occupational Therapy along speech therapy with close medical percent. ORDERS- PT/OT Humalog sliding scale Discussion and summaries: Reviewed with nursing staff. Our group will follow during acute rehabilitation stay at [facility] In[facility] with the goal of returning to a more independentliving status at the conclusion of the stay. Medications reviewed and up to date This document was transcribed using dictation software and may contain typographical errors. Jhonatan Roe RN, am scribing for, and in the presence of Yara Newman CNP. Yara Roe CNP, personally performed the services described in this documentation, as scribed byJhonatan RN in my presence and it is both accurate and complete. Digitally Signed by CATHERINE NEWMAN on 08/17/2024 04:53 PM [facility] [id number] Physical medicine and rehab History and physical note Acute Inpatient Rehab History and Physical Date of Service: 08/16/2024 Date of Admission: 08/15/2024 Attending Physician: Dr. Ha [facility] 1.1 left body involvement, right brain stroke Etiologic Diagnosis Hemorrhagic infarct involving right basal ganglia, mass effect with effacement of right lateral ventricle, tiny infarct in right cerebellum History of Present Illness 78-year-old female noted to home in inpatient rehab from [facility] stay 08/02 -08/15 who is past medical history of coronary artery disease, diabetes mellitus type 2, atrial relation, hypertension, osteoarthritis, and hyperlipidemia who presented to the emergency room with noted left-sided weakness and slurred speech. She originally presented to [facility] with CT of the head was obtained showed no acute hemorrhage or large territory stroke. CTA showed mid right M1 occlusion however patient was not a TNK candidate. [facility] showed acute right basal ganglia hemorrhage with surrounding mass effect and midline shift. On 08/02 underwent thrombectomy with NSGY with FABIAN ICI TB revascularization. Postoperatively she did fail her modified barium swallow on 08/06. On 08/01 7 GI was consulted andPEG tube was placed on 08/08. Stay was then complicated by increased fatigue and drowsiness. Repeat CT of head obtained showed no significant change with evolving changes of right basal ganglia infarct and petechial hemorrhage with stable mass effect or midline shift. MRI of the brain obtained showing hemorrhagic infarct involving the right basal ganglia and surrounding edema, mass effect with effacement of right lateral ventricle and midline shift to left with tiny infarct in right cerebellum. TTE performed showed ejection ration of 65-70%, hemoglobin A1c found to be 7.8%. Urine was obtained in was positive for urinary tract infection. Initiated on ceftriaxone for culture, infection and Klebsiella. EGD was completed showed none bleeding gastric ulcer and erosive gastroscopy. Aspirin was continued at that time and home Eliquis was initiated 5 mg twice daily. Home oxybutynin held on discharge. PEG tube remains in place and receiving continuous feedings. Patient deemed medically stable transferred to [facility] inpatient rehab unit for physical and occupational therapy as well as medical s upervision. Due to the fact that he had impairments of gait mobility ADLs and self-care and medical complexity,decision was made to admit her to the acute physical rehabilitation unit. Today, patient is sittingup in bed with at bedside. She denies any pain. SOB has had Tylenol for breakthrough pain and states this has been effective. No edema to the bilateral lower extremities. Lungs are clear to auscultation, SpO2 is currently ranging 92-96% on room air. She denies any cough or congestion statesbreathing is comfortable. Denies any lightheadedness, dizziness, chest pain, or chest pressure. Denies any active bleeding with the Eliquis on board. She does remain with some left-sided hemiparesis with 0/5 strength to the left upper extremity with slight left facial weakness and slurred speech. She has 4+/5 strength to the right upper and lower extremity. She reports her bowels are moving states he did have a bowel movement yesterday. Denies any urinary urgency, frequency, or dysuria. She states he lives at home with her spouse in a single level home. Baseline functional status is independent. Admit functional status is currently at modified independence. Medications (15) Active Scheduled: (6) apixaban 5 mg tablet 5 mg 1 tab(s), PEG, BID atorvastatin 80 mg tablet 80 mg 1 tab(s), PEG, Daily glimepiride 2 mg Tablet 2 mg 1 tab(s), PEG, qDay levothyroxine 75 mcg tablet 75 mcg 1 tab(s), PEG, qDay lisinopril 10 mg tablet 10 mg 1 tab(s), PEG, qDay metoprolol tartrate 50 mg tablet 50 mg 1 tab(s), PEG, BID Continuous: (0) PRN: (9) acetaminophen 325 mg Tablet 650 mg 2 tab(s), PEG, q4h Al hydrox/Mg hydrox/simethicone 200-200-20 mg/5 mL Susp UD 30 mL, PEG, q6h dextrose 50% Solution Disp syringe 50 mL 12.5 gram(s) 25 mL, IV Push, AsDirected docusate 10 mg/mL Liq 10mL UD 100 mg 10 mL, PEG, BID glucagon recombinant 1 mg 1 mg 1 mL, Intramuscular, AsDirected glucose 4 gm Chewable 4 tab(s), Chewed, AsDirected glycerin adult Suppository 1 supp, Rectal, Daily magnesium hydroxide 8% Suspension 30 mL UD 30 mL, PEG, qDay polyethylene glycol 3350 - UD packet 17 gram(s) 15 mL, PEG, qDay Review of Systems Constitutional: Denies weight changes fever or chills. Denies headache HEENT: Denies nystagmus and dizziness. Respiratory: Denies cough or congestion Cardiovascular: Denies chest pain, chest pressure, or heart palpitations Gastrointestinal: Denies nausea with emesis. PEG tube intact. Genitourinary: Denies dysuria or urinary retention Neurological: Denies any cognitive deficits Musculoskeletal: Denies any joint or musculoskeletal pain Skin: Denies rashes or erythema. PEG tube intact Endocrine: Denies hot or cold intolerance. No hypoglycemia. Psychiatric: Denies changes in mental status. Allergic/immunologic: Denies environmental allergies or immune dysfunction Past Medical History: Coronary artery disease Diabetes mellitus type 2 Atrial relation Hypertension Hyperlipidemia Osteoarthritis Procedure/Surgical History: Denies any past surgical history Social History: Alcohol Details: Frequency: Denies any alcohol use Home/Environment Details: Domestic Concerns: None. Living situation: Lives with spouse, first- floor set up. Primary Signal Maintainer: Self. Safe place to go: Yes. Lives In: Single level home, 1st floor bedroom, 1st floor bathroom. 3 steps to enter home. Current Home Treatments None. Professional Skilled Services or Special Community Resources None. Financial concerns: No. marital status: Nutrition/Health Details: Appetite Good. Sexual Details: Sexually active: Yes. Substance Abuse Details: Type: Denies any substance abuse Tobacco Details: Nicotine Use: Denies any tobacco use Family History: Denies family history of known cardiovascular/pulmonary disease Allergies: Perfume Nasal cocaine Codeine Sulfa drugs Code Status: Full code Physical Exam General appearance: Alert and oriented x 4. Seen up in bed. Appears control, and does not appear inacute pain. Pleasant and cooperative. Good eye contact flat affect. Answers questions appropriately Head: Normocephalic no evidence of trauma HEENT: Pupils equal and reactive to light and accommodation, no erythema. Ears with no external lesions or discharge. Nose clear, nares patent, no discharge. Throat normal healthy definition, no redness or erythema. Neck: Trachea midline. No lymphatic adenopathy Cardiac: Heart irregular, rate controlled, no rubs or murmurs. No bradycardia tachycardia, or heartmurmur Lungs: Clear to auscultation. No respiratory distress on room air. Abdomen: Soft, nontender, no organomegaly or rebound tenderness. Positive bowel sounds Musculoskeletal: Intact range of motion, no erythema, mild polyarthritis Extremities: No edema or calf tenderness Neurological: Cranial nerves intact. No nystagmus. 0/5 strength to the left upper extremity. 4+/5 strength to the right upper extremity. 0/5 strength to the left lower extremity, 4+/5 strength to theright lower extremity. Left facial weakness, slurred speech Skin: No current wounds/rashes observed. PEG tube intact, no signs/symptoms of infection at surrounding area Psychiatric: Mood good. No anxiety or depression Vitals Signs(Last 24 hrs)__Last Charted Minimum Maximum Heart Rate80(AUG 15 20:06)80(AUG 15 20:06)80(AUG 15 20:06) CXT897(AUG 16 00:03)128(AUG 16 00:03)140(AUG 15 17:47) DBP76(AUG 16 00:03)76(AUG 16 00:03)80(AUG 15 17:47) 36hr Labs 08/15 1805 Blood Glucose, [id number] Blood Glucose, [id number] Blood Glucose TSee Flowsheet Assessment/Plan Debility and functional decline with hemorrhagic infarct. Consulted with PT, OT, and ST services for gait assistance, strengthening, mobility, and dysphagia Hemorrhagic infarct involving the right basal ganglia with surrounding edema, mass effect with effacement of the right lateral ventricle and midline shift, as well as right cerebellum infarct. Cleared for reinitiation of Eliquis 5 mg twice daily. Consulting PT, OT, and ST services Left-sided hemiparesis as well as left-sided facial weakness. PT, OT, and ST services Dysphagia, on Glucerna 1.2 at 75 mL an hour, okay to hold tube feed for 3 hours per therapy services. Monitoring blood sugars every 6 hours while on tube feed nutrition Diabetes mellitus type 2 with most recent hemoglobin A1c of 7.8%. Continues on glimepiride. Monitoring blood sugars every 6 hours Atrial fibrillation, continues on Eliquis 5 mg twice daily with metoprolol for rate control. Coronary artery disease, continues on high-dose statin Hypothyroidism, continues on Synthroid Hypertension on lisinopril 10 mg daily. Monitoring blood pressures closely while also on the metoprolol Acute pain, as the as needed Tylenol in place as needed DVT prophylaxis, Eliquis 5 mg twice daily BMP and CBC today per medical team Gait, ability, ADL self-care and strengthening. Medical management of comorbidities Goal is to discharge home with spouse and home health care services, team staffing regarding further goals plan of care and length of stay Condition complex, medically stable Medical Comorbidities at the Time of Admission Acute right basal ganglia hemorrhage Coronary artery disease Diabetes mellitus type 2 Atrial fibrillation Hypertension Hyperlipidemia Osteoarthritis Dysphagia Left-sided hemiparesis Barriers to Discharge Functional medical impairments Consulting Physician Dr. Hutton Estimated Length of Stay 2-3 weeks This document was transcribed using dictation software and may contain typographical errors. Anjelica Roe RN, am scribing for, and in the presence of Miguel Huston CNP. IMiguel CNP, personally performed the services described in this documentation, as scribed by, Anjelica Grover RN in my presence and it is both accurate and complete. Digitally Signed by EZEQUIEL HUSTON on 08/22/2024 05:17 AM [id number] Miscellaneous Notes* Nursing Notes - Robson Steel RN - 08/15/2024 10:58 AM EDT Facility called back for report. This RN gave report to receiving RN. * Nursing Notes - Robson Steel RN - 08/15/2024 10:25 AM EDT Attempted report to facility x3. No answer/busy. * Plan of Care - Shanna Catalan RN - 08/15/2024 6:13 AM EDT Problem: Stroke, Ischemic (Includes Transient Ischemic Attack) Goal: Safe and Effective Swallow Outcome: Not Progressing Problem: Stroke, Ischemic (Includes Transient Ischemic Attack) Goal: Optimal Coping Outcome: Progressing Goal: Optimal Cognitive Function Outcome: Progressing Goal: Improved Communication Skills Outcome: Progressing * Plan of Care - RIKI Blancas - 08/14/2024 2:42 PM EDT Problem: Dysphagia Goal: Bolus challenge - Patient will accept trials of various liquids x10-12 trials, given moderatecues for use of strategies to improve bolus control/timing of swallow initiation with no signs of aspiration to determine readiness for repeat study Outcome: Ongoing Goal: Effortful Swallow Goal - Patient will complete repetitions of effortful swallow until reaching a self-reported level of fatigue (7/10 rating) to improve pharyngeal clearance and airway protection during the swallow Outcome: Ongoing Goal: TORO- Patient will complete isometric exercises (5 repetitions with a 10- second interval between the sets for a maximum of 2 sets) to improve pharyngeal swallow given fading verbal cues for formand pacing over x3-5 sessions Outcome: Ongoing Problem: NETWORK SUPPORT ENGINEER - Cognition Goal: Orientation Log - Patient will recall/implement use of orientation strategies, with minimal cues per assessment protocol, to demonstrate improved awareness and insight as measured by achieving a 27/30 on the O-Log Outcome: Ongoing Goal: Attention: Strategies - Patient will teach back strategies to support attention and generate at least two examples within immediate environment with minimal cues to improve attention/participation in daily activities Outcome: Ongoing Goal: Problem Solving/Insight - Patient will answer personal problem-solving questions related to acute deficits and impact on function in 3/3 opportunities with minimal cueing to promote insight to deficits, safety, and return to independence Outcome: Ongoing * Plan of Care - Teagan Cronin OT - 08/14/2024 9:45 AM EDT Problem: OT - Transfers Goal: Transfers Toilet/ Bedside Commode - Patient will transfer to/from toilet/bedside commode withsupervision for improved ability to safely complete ADLs. Outcome: Progressing Problem: OT - Strength/ROM Goal: Neuro Re-education - Patient will participate in neuro re-ed of left upper extremity with supervision and 90% accuracy for improved functional use in ADLs. Outcome: Progressing Problem: OT - Vision Goal: Visual Scanning ADL - Patient will employ use of visual compensatory strategies with no greater than min cues in 5/5 trials to increase participation and safety in ADLs. Outcome: Progressing * Plan of Care - Prema Rosales PT - 08/14/2024 9:15 AM EDT Problem: PT - General Goals Goal: Supine <-> Sit Transfers - Patient will perform supine to/from sit transfers with contact guard assistance and with use of hospital bed features in order to improve functional mobility and safety. Outcome: Ongoing Goal: Sit <-> Stand Transfers - Patient will perform sit to/from stand transfers with minimalassistance and least restrictive device in order to improve functional mobility and safety. Outcome: Ongoing Goal: Standing Endurance/Balance - Patient will perform standing balance tasks for 5 min with minimal assistance and least restrictive device Outcome: Ongoing * Plan of Care - Shanna Palmer RN - 08/13/2024 12:53 PM EDT Problem: Stroke, Ischemic (Includes Transient Ischemic Attack) Goal: Safe and Effective Swallow Outcome: Not Progressing Problem: Adult Inpatient Plan of Care Goal: Plan of Care Review Outcome: Progressing Goal: Patient-Specific Goal (Individualized) Outcome: Progressing Goal: Absence of Hospital-Acquired Illness or Injury Outcome: Progressing Goal: Optimal Comfort and Wellbeing Outcome: Progressing Problem: Stroke, Ischemic (Includes Transient Ischemic Attack) Goal: Optimal Coping Outcome: Progressing Goal: Optimal Cerebral Tissue Perfusion Outcome: Progressing Goal: Optimal Cognitive Function Outcome: Progressing Goal: Improved Communication Skills Outcome: Progressing Goal: Optimal Functional Ability Outcome: Progressing Goal: Improved Sensorimotor Function Outcome: Progressing * Plan of Care - RIKI Blancas - 08/13/2024 11:10 AM EDT Problem: Dysphagia Goal: Bolus challenge - Patient will accept trials of various liquids x10-12 trials, given moderatecues for use of strategies to improve bolus control/timing of swallow initiation with no signs of aspiration to determine readiness for repeat study Outcome: Ongoing Goal: Effortful Swallow Goal - Patient will complete repetitions of effortful swallow until reaching a self-reported level of fatigue (7/10 rating) to improve pharyngeal clearance and airway protection during the swallow Outcome: Ongoing Goal: TORO- Patient will complete isometric exercises (5 repetitions with a 10- second interval between the sets for a maximum of 2 sets) to improve pharyngeal swallow given fading verbal cues for formand pacing over x3-5 sessions Outcome: Ongoing Problem: NETWORK SUPPORT ENGINEER - Cognition Goal: Orientation Log - Patient will recall/implement use of orientation strategies, with minimal cues per assessment protocol, to demonstrate improved awareness and insight as measured by achieving a 27/30 on the O-Log Outcome: Ongoing Goal: Attention: Strategies - Patient will teach back strategies to support attention and generate at least two examples within immediate environment with minimal cues to improve attention/participation in daily activities Outcome: Ongoing Goal: Problem Solving/Insight - Patient will answer personal problem-solving questions related to acute deficits and impact on function in 3/3 opportunities with minimal cueing to promote insight to deficits, safety, and return to independence Outcome: Ongoing * Plan of Care - Tianna Murray RD - 08/12/2024 3:32 PM EDT Problem: Enteral Nutrition Goal: Absence of Aspiration Signs and Symptoms Outcome: Progressing Nutrition Recommendations and Plan of Care: Continue TF of Glucerna 1.5 at 55 mL/hr x 22 hours/day (held 1 hour prior to and 1 hour after Synthroid administration daily). Increase free water flushes to 150 mL q4 hours (x6/day) to meet daily hydration needs. Consider decreasing bowel regimen d/t liquid stool. Monitor TF intake, TF tolerance, GI function, skin integrity, weight changes, and labs. RD to continue to follow. * Plan of Care - Katie Ramos, SHIRLEY - 08/12/2024 2:23 PM EDT Problem: PT - General Goals Goal: Supine <-> Sit Transfers - Patient will perform supine to/from sit transfers with contact guard assistance and with use of hospital bed features in order to improve functional mobility and safety. Outcome: Progressing Goal: Sit <-> Stand Transfers - Patient will perform sit to/from stand transfers with minimalassistance and least restrictive device in order to improve functional mobility and safety. Outcome: Progressing Goal: Standing Endurance/Balance - Patient will perform standing balance tasks for 5 min with minimal assistance and least restrictive device Outcome: Progressing Goal: Stand/Squat Pivot Transfers - Patient will perform stand pivot transfer to/from bed/chair/commode with minimal assistance and least restrictive device in order to improve functional mobility and safety. Outcome: Progressing * Plan of Care - Shanna Palmer RN - 08/12/2024 1:02 PM EDT Problem: Adult Inpatient Plan of Care Goal: Plan of Care Review Outcome: Progressing Goal: Patient-Specific Goal (Individualized) Outcome: Progressing Goal: Absence of Hospital-Acquired Illness or Injury Outcome: Progressing Goal: Optimal Comfort and Wellbeing Outcome: Progressing Problem: Stroke, Ischemic (Includes Transient Ischemic Attack) Goal: Optimal Coping Outcome: Progressing Goal: Optimal Cerebral Tissue Perfusion Outcome: Progressing Goal: Optimal Cognitive Function Outcome: Progressing Goal: Improved Communication Skills Outcome: Progressing Goal: Optimal Functional Ability Outcome: Progressing Goal: Improved Sensorimotor Function Outcome: Progressing Goal: Safe and Effective Swallow Outcome: Progressing * Plan of Care - Teagan Cronin OT - 08/12/2024 10:30 AM EDT Problem: OT - Transfers Goal: Transfers Toilet/ Bedside Commode - Patient will transfer to/from toilet/bedside commode withsupervision for improved ability to safely complete ADLs. Outcome: Ongoing Problem: OT - Strength/ROM Goal: Neuro Re-education - Patient will participate in neuro re-ed of left upper extremity with supervision and 90% accuracy for improved functional use in ADLs. Outcome: Ongoing Problem: OT - Cognition Goal: Cognition Simple ADL - Patient will demonstrate improved cognition, completing simple ADL task for 7 minutes with no greater than min cues required to maintain attention. Outcome: Ongoing Problem: OT - Vision Goal: Visual Scanning ADL - Patient will employ use of visual compensatory strategies with no greater than min cues in 5/5 trials to increase participation and safety in ADLs. Outcome: Ongoing * Plan of Care - Nubia Pineda RN - 08/12/2024 1:21 AM EDT Patient is NPO without meds at 0000 for a FABIAN 08/12. Is the patient supposed to be without meds and water flushes, or can the order be changed to NPO with meds? Sent to [facility] Problem: Adult Inpatient Plan of Care Goal: Plan of Care Review Outcome: Progressing Goal: Patient-Specific Goal (Individualized) Outcome: Progressing Goal: Absence of Hospital-Acquired Illness or Injury Outcome: Progressing Goal: Optimal Comfort and Wellbeing Outcome: Progressing Problem: Stroke, Ischemic (Includes Transient Ischemic Attack) Goal: Optimal Coping Outcome: Progressing Goal: Optimal Cerebral Tissue Perfusion Outcome: Progressing Goal: Optimal Cognitive Function Outcome: Progressing Goal: Improved Communication Skills Outcome: Progressing Goal: Optimal Functional Ability Outcome: Progressing Goal: Improved Sensorimotor Function Outcome: Progressing Goal: Safe and Effective Swallow Outcome: Progressing * Plan of Care - Braulio Aleman RN - 08/11/2024 6:44 PM EDT Problem: Adult Inpatient Plan of Care Goal: Plan of Care Review Outcome: Progressing Goal: Patient-Specific Goal (Individualized) Outcome: Progressing Goal: Absence of Hospital-Acquired Illness or Injury Outcome: Progressing Goal: Optimal Comfort and Wellbeing Outcome: Progressing * Plan of Care - Nubia Pineda RN - 08/11/2024 12:06 AM EDT Patients daughter would like PT/OT/Speech to see patient again. She would like to get OOB. Daughterwould like another MBS be performed to evaluate swallowing. Problem: Adult Inpatient Plan of Care Goal: Plan of Care Review Outcome: Progressing Goal: Patient-Specific Goal (Individualized) Outcome: Progressing Goal: Absence of Hospital-Acquired Illness or Injury Outcome: Progressing Goal: Optimal Comfort and Wellbeing Outcome: Progressing Problem: Stroke, Ischemic (Includes Transient Ischemic Attack) Goal: Optimal Coping Outcome: Progressing Goal: Optimal Cerebral Tissue Perfusion Outcome: Progressing Goal: Optimal Cognitive Function Outcome: Progressing Goal: Improved Communication Skills Outcome: Progressing Goal: Optimal Functional Ability Outcome: Progressing Goal: Improved Sensorimotor Function Outcome: Progressing Goal: Safe and Effective Swallow Outcome: Progressing * Plan of Care - Abigail Trinh RN - 08/10/2024 6:09 PM EDT Problem: Adult Inpatient Plan of Care Goal: Plan of Care Review 08/10/2024 1809 by Abigail Trinh RN Outcome: Progressing 08/10/2024 1808 by Abigail Trinh RN Outcome: Progressing Goal: Patient-Specific Goal (Individualized) 08/10/2024 1809 by Abigail Trinh RN Outcome: Progressing 08/10/2024 1808 by Abigail Trinh RN Outcome: Progressing Goal: Absence of Hospital-Acquired Illness or Injury 08/10/2024 1809 by Abigail Trinh RN Outcome: Progressing 08/10/2024 1808 by Abigail Trinh RN Outcome: Progressing Goal: Optimal Comfort and Wellbeing 08/10/2024 1809 by Abigail Trinh RN Outcome: Progressing 08/10/2024 1808 by Abigail Trinh RN Outcome: Progressing * Plan of Care - Nubia Pineda RN - 08/10/2024 1:11 AM EDT Problem: Adult Inpatient Plan of Care Goal: Plan of Care Review Outcome: Progressing Goal: Patient-Specific Goal (Individualized) Outcome: Progressing Goal: Absence of Hospital-Acquired Illness or Injury Outcome: Progressing Goal: Optimal Comfort and Wellbeing Outcome: Progressing Problem: Stroke, Ischemic (Includes Transient Ischemic Attack) Goal: Optimal Coping Outcome: Progressing Goal: Optimal Cerebral Tissue Perfusion Outcome: Progressing Goal: Optimal Cognitive Function Outcome: Progressing Goal: Improved Communication Skills Outcome: Progressing Goal: Optimal Functional Ability Outcome: Progressing Goal: Improved Sensorimotor Function Outcome: Progressing Goal: Safe and Effective Swallow Outcome: Progressing * Nursing Notes - Nubia Pineda RN - 08/09/2024 10:50 PM EDT This RN spoke to patients daughter at bedside. Per patients daughter, "The patient looks a lot worse than she did in the ICU" and is confused about why that is. Patients daughter is also asking if patient can repeat the MBS. Patients daughter brought up the concern about the patient having an infection in her tooth that was supposed to be pulled this week outpatient. Patients daughter is wondering if the tooth will be pulled during this hospital admission. Daughter would like to be updated about the patients condition during the past 3 days during AM rounds tomorrow. * Plan of Care - Jonnie Mccabe MD - 08/09/2024 6:45 PM EDT Brief GI Note: Patient with EGD completed today with results as below: Impression: - LA Grade B reflux esophagitis with no bleeding. - Z-line regular, 43 cm from the incisors. - Non-bleeding gastric ulcer with no stigmata of bleeding. - Erosive gastropathy with no bleeding and no stigmata of recent bleeding. Biopsied. - Non-bleeding duodenal ulcers with no stigmata of bleeding. - An externally removable PEG placement was successfully completed. Recommendation: - BID PPI (high dose, 40mg ) x 8 weeks followed by daily thereafter - Please check H pylori stool PCR. If positive, treat H pylori - Await pathology results. - Keep PEG tube clamped for 8 hours - You may use the PEG tube for medications now and keep clamped for 1-2 hours after giving the medication. - Do not start tube feeds for 8 hours. - Do not place gauze or other dressings between skin and external bumper due to risk for buried bumper syndrome. - If used group home, initial PEG should be changed in 6-12 months depending on tube condition. - No plans for repeat outpatient EGD at this time based on clinical status Jonnie Mccabe MD Division of Gastroenterology, Hepatology, and Nutrition Clinical Fellow PGY-4 Pager: [phone] * Plan of Care - Manisha Cheema RN - 08/09/2024 2:26 PM EDT Problem: Adult Inpatient Plan of Care Goal: Plan of Care Review Outcome: Progressing Goal: Patient-Specific Goal (Individualized) Outcome: Progressing Goal: Absence of Hospital-Acquired Illness or Injury Outcome: Progressing Goal: Optimal Comfort and Wellbeing Outcome: Progressing Problem: Stroke, Ischemic (Includes Transient Ischemic Attack) Goal: Optimal Coping Outcome: Progressing Goal: Optimal Cerebral Tissue Perfusion Outcome: Progressing Goal: Optimal Cognitive Function Outcome: Progressing Goal: Improved Communication Skills Outcome: Progressing Goal: Optimal Functional Ability Outcome: Progressing Goal: Improved Sensorimotor Function Outcome: Progressing Problem: Enteral Nutrition Goal: Absence of Aspiration Signs and Symptoms Outcome: Progressing * Nursing Notes - Catherine Barros RN - 08/08/2024 4:01 PM EDT Patient's states patient had a reaction to anesthesia several years ago. "The aniyah made it look like she was having a heart attack". He is not sure how long ago or what the specific medication was. Daughter, Keagan [phone] would be able to answer questions. Catherine Barros RN * Plan of Care - RIKI Penaloza - 08/08/2024 1:10 PM EDT Problem: Dysphagia Goal: Bolus challenge - Patient will accept trials of various liquids x10-12 trials, given moderatecues for use of strategies to improve bolus control/timing of swallow initiation with no signs of aspiration to determine readiness for repeat study Outcome: Ongoing Goal: Effortful Swallow Goal - Patient will complete repetitions of effortful swallow until reaching a self-reported level of fatigue (7/10 rating) to improve pharyngeal clearance and airway protection during the swallow Outcome: Ongoing Goal: TORO- Patient will complete isometric exercises (5 repetitions with a 10- second interval between the sets for a maximum of 2 sets) to improve pharyngeal swallow given fading verbal cues for formand pacing over x3-5 sessions Outcome: Ongoing * Plan of Care - Florinda Velasquez PT - 08/08/2024 12:54 PM EDT Problem: PT - General Goals Goal: Supine <-> Sit Transfers - Patient will perform supine to/from sit transfers with contact guard assistance and with use of hospital bed features in order to improve functional mobility and safety. Outcome: Progressing Goal: Sit <-> Stand Transfers - Patient will perform sit to/from stand transfers with minimalassistance and least restrictive device in order to improve functional mobility and safety. Outcome: Progressing Goal: Standing Endurance/Balance - Patient will perform standing balance tasks for 5 min with minimal assistance and least restrictive device Outcome: Progressing Goal: Stand/Squat Pivot Transfers - Patient will perform stand pivot transfer to/from bed/chair/commode with minimal assistance and least restrictive device in order to improve functional mobility and safety. Outcome: Progressing * Plan of Care - Teagan Cronin OT - 08/08/2024 10:15 AM EDT Problem: OT - ADLs Goal: Grooming - Patient will complete grooming in standing with supervision for improved ability to safely complete ADLs. Outcome: Ongoing Problem: OT - Transfers Goal: Transfers Toilet/ Bedside Commode - Patient will transfer to/from toilet/bedside commode withsupervision for improved ability to safely complete ADLs. Outcome: Ongoing Problem: OT - Strength/ROM Goal: Neuro Re-education - Patient will participate in neuro re-ed of left upper extremity with supervision and 90% accuracy for improved functional use in ADLs. Outcome: Ongoing Problem: OT - Cognition Goal: Cognition Simple ADL - Patient will demonstrate improved cognition, completing simple ADL task for 7 minutes with no greater than min cues required to maintain attention. Outcome: Ongoing Problem: OT - Vision Goal: Visual Scanning ADL - Patient will employ use of visual compensatory strategies with no greater than min cues in 5/5 trials to increase participation and safety in ADLs. Outcome: Ongoing * Nursing Notes - Shaila Stringer RN - 08/07/2024 5:00 PM EDT On admission to [facility], from another [facility] inpatient unit a dual RN initial assessment of skin condition was performed by Shaila Stringer RN and Raysa Martínez RN. Skin Assessment: Skin within defined limits:Yes Raghu Score: 15 LDA Added:No Shaila Stringer RN * Plan of Care - Debo Doty RN - 08/07/2024 12:01 PM EDT Problem: Stroke, Ischemic (Includes Transient Ischemic Attack) Goal: Safe and Effective Swallow Outcome: Not Progressing Problem: Adult Inpatient Plan of Care Goal: Plan of Care Review Outcome: Progressing Goal: Patient-Specific Goal (Individualized) Outcome: Progressing Goal: Absence of Hospital-Acquired Illness or Injury Outcome: Progressing Goal: Optimal Comfort and Wellbeing Outcome: Progressing Problem: Stroke, Ischemic (Includes Transient Ischemic Attack) Goal: Optimal Coping Outcome: Progressing Goal: Optimal Cerebral Tissue Perfusion Outcome: Progressing Goal: Optimal Cognitive Function Outcome: Progressing Goal: Improved Communication Skills Outcome: Progressing Goal: Optimal Functional Ability Outcome: Progressing Goal: Improved Sensorimotor Function Outcome: Progressing Problem: Enteral Nutrition Goal: Absence of Aspiration Signs and Symptoms Outcome: Progressing Problem: Adult Inpatient Plan of Care Goal: Readiness for Transition of Care Outcome: Completed Problem: Stroke, Ischemic (Includes Transient Ischemic Attack) Goal: Effective Bowel Elimination Outcome: Completed Goal: Optimal Nutrition Intake Outcome: Completed Goal: Effective Oxygenation and Ventilation Outcome: Completed Goal: Effective Urinary Elimination Outcome: Completed Problem: Enteral Nutrition Goal: Safe, Effective Therapy Delivery Outcome: Completed Goal: Feeding Tolerance Outcome: Completed * Plan of Care - Gerry Menezes RN - 08/07/2024 6:32 AM EDT Problem: Stroke, Ischemic (Includes Transient Ischemic Attack) Goal: Safe and Effective Swallow Outcome: Not Progressing Problem: Swallowing Impairment Goal: Optimal Eating/Swallowing without Aspiration Outcome: Not Progressing Problem: Adult Inpatient Plan of Care Goal: Plan of Care Review Outcome: Progressing Goal: Patient-Specific Goal (Individualized) Outcome: Progressing Goal: Absence of Hospital-Acquired Illness or Injury Outcome: Progressing Goal: Optimal Comfort and Wellbeing Outcome: Progressing Goal: Readiness for Transition of Care Outcome: Progressing Problem: Stroke, Ischemic (Includes Transient Ischemic Attack) Goal: Optimal Coping Outcome: Progressing Goal: Effective Bowel Elimination Outcome: Progressing Goal: Optimal Cerebral Tissue Perfusion Outcome: Progressing Goal: Optimal Cognitive Function Outcome: Progressing Goal: Improved Communication Skills Outcome: Progressing Goal: Optimal Functional Ability Outcome: Progressing Goal: Optimal Nutrition Intake Outcome: Progressing Goal: Effective Oxygenation and Ventilation Outcome: Progressing Goal: Improved Sensorimotor Function Outcome: Progressing Goal: Effective Urinary Elimination Outcome: Progressing Problem: Enteral Nutrition Goal: Absence of Aspiration Signs and Symptoms Outcome: Progressing Goal: Safe, Effective Therapy Delivery Outcome: Progressing Goal: Feeding Tolerance Outcome: Progressing * Plan of Care - Florinda Velasquez PT - 08/06/2024 2:30 PM EDT Problem: PT - General Goals Goal: Supine <-> Sit Transfers - Patient will perform supine to/from sit transfers with contact guard assistance and with use of hospital bed features in order to improve functional mobility and safety. Outcome: Progressing Goal: Sit <-> Stand Transfers - Patient will perform sit to/from stand transfers with minimalassistance and least restrictive device in order to improve functional mobility and safety. Outcome: Progressing Goal: Standing Endurance/Balance - Patient will perform standing balance tasks for 5 min with minimal assistance and least restrictive device Outcome: Progressing Goal: Stand/Squat Pivot Transfers - Patient will perform stand pivot transfer to/from bed/chair/commode with minimal assistance and least restrictive device in order to improve functional mobility and safety. Outcome: Progressing Goal: Ambulation - Patient will ambulate 50 feet with minimal assistance and of 2 people and least restrictive device to improve ability to safely navigate home and community. Outcome: Progressing * Plan of Care - Rachell Blake OT - 08/06/2024 10:06 AM EDT Problem: OT - ADLs Goal: Lower Body Dressing - Patient will complete lower body dressing tasks with supervision using adaptive equipment/compensatory strategies as needed for improved ability to complete self-care activities. Outcome: Ongoing Problem: OT - ADLs Goal: Grooming - Patient will complete grooming in standing with supervision for improved ability to safely complete ADLs. Outcome: Progressing Problem: OT - Transfers Goal: Transfers Toilet/ Bedside Commode - Patient will transfer to/from toilet/bedside commode withsupervision for improved ability to safely complete ADLs. Outcome: Progressing Problem: OT - Strength/ROM Goal: Neuro Re-education - Patient will participate in neuro re-ed of left upper extremity with supervision and 90% accuracy for improved functional use in ADLs. Outcome: Progressing Problem: OT - Cognition Goal: Cognition Simple ADL - Patient will demonstrate improved cognition, completing simple ADL task for 7 minutes with no greater than min cues required to maintain attention. Outcome: Progressing Problem: OT - Vision Goal: Visual Scanning ADL - Patient will employ use of visual compensatory strategies with no greater than min cues in 5/5 trials to increase participation and safety in ADLs. Outcome: Progressing * Plan of Care - RIKI Gonzales - 08/06/2024 9:33 AM EDT Problem: Dysphagia Goal: MBS - Patient will participate in Modified Barium Swallow (MBS) Study to objectively assess oropharyngeal swallow function to most appropriately guide NETWORK SUPPORT ENGINEER plan of care Outcome: Met Goal: Bolus challenge - Patient will accept trials of various liquids x10-12 trials, given moderatecues for use of strategies to improve bolus control/timing of swallow initiation with no signs of aspiration to determine readiness for repeat study Outcome: Ongoing Goal: Effortful Swallow Goal - Patient will complete repetitions of effortful swallow until reaching a self-reported level of fatigue (7/10 rating) to improve pharyngeal clearance and airway protection during the swallow Outcome: Ongoing Goal: TORO- Patient will complete isometric exercises (5 repetitions with a 10- second interval between the sets for a maximum of 2 sets) to improve pharyngeal swallow given fading verbal cues for formand pacing over x3-5 sessions Outcome: Ongoing * Plan of Care - Gerry Menezes RN - 08/06/2024 4:22 AM EDT Problem: Adult Inpatient Plan of Care Goal: Plan of Care Review Outcome: Progressing Goal: Patient-Specific Goal (Individualized) Outcome: Progressing Goal: Absence of Hospital-Acquired Illness or Injury Outcome: Progressing Goal: Optimal Comfort and Wellbeing Outcome: Progressing Goal: Readiness for Transition of Care Outcome: Progressing Problem: Stroke, Ischemic (Includes Transient Ischemic Attack) Goal: Optimal Coping Outcome: Progressing Goal: Effective Bowel Elimination Outcome: Progressing Goal: Optimal Cerebral Tissue Perfusion Outcome: Progressing Goal: Optimal Cognitive Function Outcome: Progressing Goal: Improved Communication Skills Outcome: Progressing Goal: Optimal Functional Ability Outcome: Progressing Goal: Optimal Nutrition Intake Outcome: Progressing Goal: Effective Oxygenation and Ventilation Outcome: Progressing Goal: Improved Sensorimotor Function Outcome: Progressing Goal: Safe and Effective Swallow Outcome: Progressing Goal: Effective Urinary Elimination Outcome: Progressing Problem: Swallowing Impairment Goal: Optimal Eating/Swallowing without Aspiration Outcome: Progressing Problem: Enteral Nutrition Goal: Absence of Aspiration Signs and Symptoms Outcome: Progressing Goal: Safe, Effective Therapy Delivery Outcome: Progressing Goal: Feeding Tolerance Outcome: Progressing * Plan of Care - RIKI Sharma - 08/05/2024 11:49 AM EDT Problem: Dysphagia Goal: Ongoing Assessment - Patient will participate in ongoing assessment by accepting various PO consistency trials with appropriate participation/oral acceptance and no significant respiratory complications to determine readiness for diet advancement Outcome: Met Problem: NETWORK SUPPORT ENGINEER - Cognition Goal: Orientation Log - Patient will recall/implement use of orientation strategies, with minimal cues per assessment protocol, to demonstrate improved awareness and insight as measured by achieving a 27/30 on the O-Log Outcome: Progressing Goal: Ongoing Assessment - Patient will participate in ongoing dynamic assessment of motor speech, expressive/receptive language, and cognitive- linguistic skills across 1 session to better assess deficits and most appropriately guide NETWORK SUPPORT ENGINEER plan of care Outcome: Met Goal: Attention: Strategies - Patient will teach back strategies to support attention and generate at least two examples within immediate environment with minimal cues to improve attention/participation in daily activities Outcome: Ongoing Goal: Problem Solving/Insight - Patient will answer personal problem-solving questions related to acute deficits and impact on function in 3/3 opportunities with minimal cueing to promote insight to deficits, safety, and return to independence Outcome: Ongoing * Plan of Care - Savana Leung RD - 08/05/2024 10:26 AM EDT Nutrition Recommendations and Plan of Care: 1. Diet: NPO. Advancement per team/NETWORK SUPPORT ENGINEER recommendation 2. Ordered TF: Glucerna 1.5 @ goal rate 55mL/h x 22 hours (holding for synthroid) -Free water per team, suggest minimum of 30ml q 4hr for tube patency 3. Monitor TF/PO intake, bowel function, skin integrity, weight change, lab values. 4. RD to follow up * Plan of Care - Florinda Velasquez PT - 08/04/2024 1:36 PM EDT Problem: PT - General Goals Goal: Supine <-> Sit Transfers - Patient will perform supine to/from sit transfers with contact guard assistance and with use of hospital bed features in order to improve functional mobility and safety. Outcome: Ongoing Goal: Sit <-> Stand Transfers - Patient will perform sit to/from stand transfers with minimalassistance and least restrictive device in order to improve functional mobility and safety. Outcome: Ongoing Goal: Standing Endurance/Balance - Patient will perform standing balance tasks for 5 min with minimal assistance and least restrictive device Outcome: Ongoing Goal: Stand/Squat Pivot Transfers - Patient will perform stand pivot transfer to/from bed/chair/commode with minimal assistance and least restrictive device in order to improve functional mobility and safety. Outcome: Ongoing * Plan of Care - Dona Sharp OT - 08/04/2024 9:18 AM EDT Problem: OT - ADLs Goal: Lower Body Dressing - Patient will complete lower body dressing tasks with supervision using adaptive equipment/compensatory strategies as needed for improved ability to complete self-care activities. Outcome: Ongoing Goal: Grooming - Patient will complete grooming in standing with supervision for improved ability to safely complete ADLs. Outcome: Ongoing Problem: OT - Transfers Goal: Transfers Toilet/ Bedside Commode - Patient will transfer to/from toilet/bedside commode withsupervision for improved ability to safely complete ADLs. Outcome: Ongoing Problem: OT - Strength/ROM Goal: Neuro Re-education - Patient will participate in neuro re-ed of left upper extremity with supervision and 90% accuracy for improved functional use in ADLs. Outcome: Ongoing Problem: OT - Cognition Goal: Cognition Simple ADL - Patient will demonstrate improved cognition, completing simple ADL task for 7 minutes with no greater than min cues required to maintain attention. Outcome: Ongoing Problem: OT - Vision Goal: Visual Scanning ADL - Patient will employ use of visual compensatory strategies with no greater than min cues in 5/5 trials to increase participation and safety in ADLs. Outcome: Ongoing * Plan of Care - Consuelo Mitchell RN - 08/04/2024 8:38 AM EDT Problem: Adult Inpatient Plan of Care Goal: Plan of Care Review Outcome: Progressing Goal: Patient-Specific Goal (Individualized) Outcome: Progressing Goal: Absence of Hospital-Acquired Illness or Injury Outcome: Progressing Goal: Optimal Comfort and Wellbeing Outcome: Progressing Goal: Readiness for Transition of Care Outcome: Progressing * Plan of Care - RIKI Hayes - 08/03/2024 11:25 AM EDT Problem: Dysphagia Goal: Ongoing Assessment - Patient will participate in ongoing assessment by accepting various PO consistency trials with appropriate participation/oral acceptance and no significant respiratory complications to determine readiness for diet advancement Outcome: Ongoing Problem: NETWORK SUPPORT ENGINEER - Cognition Goal: Orientation Log - Patient will recall/implement use of orientation strategies, with minimal cues per assessment protocol, to demonstrate improved awareness and insight as measured by achieving a 27/30 on the O-Log Outcome: Ongoing Goal: Ongoing Assessment - Patient will participate in ongoing dynamic assessment of motor speech, expressive/receptive language, and cognitive- linguistic skills across 1 session to better assess deficits and most appropriately guide NETWORK SUPPORT ENGINEER plan of care Outcome: Ongoing * Nursing Notes - Aniyah Torre RN - 08/02/2024 6:13 PM EDT On admission to [facility] [place], from [place] a dual RN initial assessment of skin condition was performed by Aniyah Torre RN and Amirah ENRIQUEZ. Skin Assessment: Skin not within defined limits. - Pressure Injury suspected: Yes - Coccyx LDA Added:Yes Aniyah Torre RN * Nursing Notes - Sophie Jenkins RN - 08/02/2024 5:32 PM EDT Report given to TUSHAR OsborneU RN whom denies any questions. No change from previous assessment. Pt transferred to [facility] via cart accompanied by Denae RN. T on room air, tele and pulse ox. * Nursing Notes - Sophie Jenkins RN - 08/02/2024 3:44 PM EDT Report received from JA Barboza. * Op Note - Prema Ramos MD - 08/02/2024 3:29 PM EDT Operative Report DATE PERFORMED: 08/02/24 right radial arteriogram right common carotid artery arteriogram right internal carotid artery arteriogram. Suction aspiration thrombectomy of right M1 occlusion Postprocedural right internal carotid artery arteriogram. Postprocedural right common carotid artery arteriogram HISTORY OF PRESENT ILLNESS: This is a 78-year-old woman with a history of atrial fibrillation, noncompliant on Eliquis, who presents with a right MCA syndrome. LKW 0915, mRS 0, NIHSS 12. Head CT withno hemorrhage, CTA concerning for a right M1 occlusion. She did not receive thrombolytics. On arrival to [facility], she was taken directly to the OR emergently for revascularization. Due to the emergent nature of the procedure and lack of immediately available family, we proceeded under emergency consent. SURGEON(S): Prema Ramos MD HUMAN RESOURCES COMPLIANCE MANAGER(S): None ANESTHESIA: Monitored anesthesia care DESCRIPTION OF PROCEDURE: Briefly, the patient was brought to the operating room, transferred onto the operative bed. All pressure points were padded appropriately. The skin of the right wrist and right groin was prepped and draped in sterile fashion. A time-out occurred to verify correct patient and procedure. Using modified Seldinger technique and a micropuncture needle, access was obtained to the right radial artery and a 6Fr radial sheath was placed under continuous ultrasound guidance. This was then exchanged for an 6Fr 088 Ballast over the 035 glide wire. We then tracked and advanced a Select Sim2 over an 0.035 Glidewire and the wire and catheter combination was reformatted in the ascending arch, and the right common carotid artery was catheterized under continuous fluoroscopy. Selective injection was performed in the PA and lateral views. Under roadmap guidance, the select catheter followed by the guide was advanced into the right distal cervical ICA over the glidewire. A rightinternal carotid artery arteriogram was performed in the AP and lateral views which demonstrated the right M1 occlusion. Next, a Freeclimb 70/Serjio 7 was advanced over a marksman microcatheter which was advanced over a synchro 2 soft wire into the distal right M1 segment. The zoom 71 aspiration catheter was then withdrawn under mechanical aspiration with visible clot retrieval. Follow-up angiogram demonstrated successful revascularization with a filling defect in a distal M3 branch c/w a TICI2b. The guide catheter was withdrawn into the right common carotid artery and an arteriogram was performed in the PA and lateral projections demonstrating patency of the cervical carotid. We then turned our attention to closure. The guide catheter was removed, and the radial arteriotomy was closed with a TR band to achieve hemostasis. The patient was then transported to the ICU in stable conditionhaving tolerated the procedure well. I was present throughout the procedure, puncture to final closure, present for the critical portions including but not limited to vessel catheterization, angiography, thrombectomy, and image interpretation and final closure. FINDINGS: Right radial arteriogram: Selective injection demonstrates a patent radial artery with suitable caliber for catheterization. right common carotid artery arteriogram: Selective injection demonstrates filling of the common carotid at the level of the bifurcation. Mild atherosclerotic disease at the level of the bifurcation without significant flow limiting stenosis. right internal carotid artery arteriogram: Selective injection demonstrates filling of the internalcarotid artery and the left A1 and M1 segments. There is an occlusion of the right mid-M1 segment immediately distal to the anterior temporal artery origin. right internal carotid artery arteriogram post-pass 1: Following initial thrombectomy, there is antegrade perfusion with a filling defect in a distal M3 branch consistent with a TICI2b reperfusion. No contrast extravasation or other untoward findings. right common carotid artery arteriogram (post-procedure): Selective injection demonstrates filling of the common carotid at the level of the bifurcation. No evidence of hemodynamically significant stenosis of the cervical carotid artery. COMPLICATIONS: None. DISPOSITION: Stable to the ICU. In room: 1454 Puncture 1500 First pass: 1517 Revascularization 1519 TICI score 2b IMPRESSION: Right M1 occlusion. Successful mechanical thrombectomy with TICI 2b revascularization as described above. 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] PROCEDURE PERFORMED Procedure(s) (LRB): THROMBECTOMY NONCORONARY ARTERY MECHANICAL PERCUTANEOUS 1ST VESSEL (N/A) PLACEMENT CATH SELECTIVE INTERNAL CAROTID ARTERY W/ ANGIO IPSILAT INTRACRANIAL CAROTID W/ RAD S&I (N/A) PRIMARY CLOSURE Radial arm band deflation INTRAOPERATIVE FINDINGS R M1 occlusion sp TICI 2b reperfusion after 1 pass mechanical aspiration SURGEON Surgeons and Role: * Prema Ramos MD - Primary ANESTHESIOLOGIST Anesthesiologist: Tameka Ruth MD LITIGATION SECRETARY: Bebo [place] APRN-LITIGATION SECRETARY SURGICAL STAFF Wrecking Mechanic: Rachell Ruffin RN Bacteriologist Food: Paulina Muñiz; Radha Morales COMPLICATIONS None ESTIMATED BLOOD LOSS Minimal SPECIMENS No specimen sent * No specimens in log * Prema Ramos MD August 02, 2024 3:26 PM documented in this encounter[facility] History of Present illness Narrative* OWEN Benavides - 08/15/2024 9:01 AM EDT Care Management Discharge Note Selected Continued Care - Admitted Since 08/02/2024 Destination Coordination complete. Service Provider Services Address Phone Fax Patient Preferred [facility] [address] [place] [phone] -- Internal Comment last updated by OWEN Benavides 08/15/2024 0901 Report fax: [phone] Transport Request Mode of Transfer: [facility] Name of Discharge Transport Company: [employer] [facility] ETA: 08/15/2024 @ 1030 Patient medically stable for discharge per physician/medical team. Pt has neurology appointment scheduled. Pt/ to schedule appointment with PCP. Patient/Table Operator remain in agreement withthe discharge plan. BULMARO Allen Chinese Herbalist * OWEN Benavides - 08/14/2024 3:17 PM EDT Placement Plan Expected Discharge Date: 08/15/2024 Referred Level of Care: IPR Current Referrals and Status 1. [facility]accept[facility] IPR obtained precertification for Pt starting tomorrow. Pt is set-up to leave via ambulance tomorrow at 1030. CM updated Pt's by phone. IPR will provide CM with the best phone and fax numbersfor RN report tomorrow morning. BULMARO Allen Chinese Herbalist * Marybeth Ayoub - 08/14/2024 2:51 PM EDT Care Management Progress Note Transportation for discharge arranged Mode of Transfer: (P) BLS Name of Discharge Transport Company: (P) [employer] [facility] ETA: (P) 08/15/2024 @ 1030 Pick-up from 0S 1032/A Destination [facility] IPR [address] [place] [address] OWEN Morrell Chinese Herbalist Repairer Veneer Sheet [phone] * Jazzy Talamantesmandajean-pierre - 08/14/2024 9:47 AM EDT Acute Occupational Therapy Treatment Prior Gross Functional Mobility: independent Current AM-PAC score(s): CURRENT AM-PAC Activity Raw Score: 11 Based on the above AM-PAC score(s), and OT clinical judgment, discharge destination recommendation is: Inpatient Rehab Facility (Displaying low tolerance today, continue to assess) Barriers to discharge home: Patient needs assistance with functional mobility, Patient needs assistance with ADLs, Patient needs assistance with IADLs (see note below) Supporting Factors (would benefit from skilled therapy services): Patient status is anticipated to be appropriate to tolerate inpatient rehab therapy requirements at time of discharge from acute care, Impaired functional status, Decreased strength, Impaired balance, Decreased endurance, Impaired self-care abilities, Impaired cognitive status, Assistance needed with functional mobility, Fall risk Mobility equipment available at home: rollator, straight cane ADL equipment available at home: shower chair Equipment recommendations for discharge: wheelchair, bedside commode Equipment issued: foam sponge Current therapy frequency recommendation(s) in acute: 5 times a week Precautions and Weightbearing Status: OT Existing Precautions/Restrictions: fall, cardiac Telemetry, Tube feed Patient Safety Communication Prior to Visit: Nursing Subjective: Pt agreeable to OT session, expressing interest in using the bedside commode Pain: General Pain Documentation (Adult, OB, Peds) Presence of Pain: denies pain/discomfort Presence of Pain Score (Auto-calculated): 0 Objective/Observation: Vitals/Vitals Responses to Treatment: VSS O2 Device: room air Cognition Overall Cognitive Status: Impaired Arousal/Alertness: Delayed responses to stimuli Orientation Level: Oriented to person, Oriented to situation Following Commands: Follows one step commands with increased time, Follows one step commands with repetition Safety Judgment: Decreased awareness of need for assistance, Decreased awareness of need for safety Awareness of Errors: Assistance required to identify errors made, Assistance required to correct errors made Deficits: Decreased awareness of deficits Attention Span: Attends with cues to redirect ADL Assessment/Intervention: ADLs: ADL Assessment: Toileting Deficit Toilet Assistance: Total Toileting Location: bedside commode Toileting Deficit: Increased time to complete, Activity tolerance, Generalized weakness, Balance, Clothing management up, Clothing management down, Perineal hygiene Toilet Skilled Rationale (Verbal/Tactile/Visual/Demonstration): Facilitate positioning, Facilitate postural control, Technique of activity, Cues for increased safety Toileting Intervention/Details: Pt requesting to use BSC and having successful bowel and bladder movement. Pt needing mod x2 A for standing balance, therapist managing clothing and pericare. Pt needing increased time and cues for maintaining an upright posture and neck positioning. Pt displaying increased fatigue throughout task, needing seated rest break prior to pivoting to recliner Balance: Sitting Balance Static Sitting-Level of Assistance: Contact guard Dynamic Sitting-Level of Assistance: Minimum assistance Skilled Rationale: Verbal cues, Tactile cues, Hand placement, Positioning, Full extension to upright positioning/posture, Upright gaze/neck extension, Technique of activity Sitting Balance Skilled Intervention/Details: Pt sitting EOB approx 5 min and sitting on BSC approx8 min, needing continuous cues for sitting up straight and maintaining an upright gaze and neck position. Pt needing min A at times to adjust positioning Standing Balance Static Standing-Level of Assistance: Moderate assistance, 2-person assist Dynamic Standing-Level of Assistance: Maximum assistance, 2-person assist Standing-Balance Support: Gait belt, Hand-held assist Skilled Rationale: Verbal cues, Tactile cues, Hand placement, Positioning, Full extension to upright positioning/posture, Upright gaze/neck extension, Technique of activity Standing Balance Skilled Intervention/Details: Pt provided bilat hand held support, and needing increased assistance for managing L side during transfers. Pt needing continued cues to attend to L side and for maintaining an upright posture and upright neck position Mobility Assessment/Intervention: Supine to Sit Mobility [place] Level: Supine->Sit: moderate assist (50% patient effort) Physical Assist: Supine->Sit: 2 person assist Bed Features/Set-up: Supine->Sit: Head of bed elevated, Use of bed rail Skilled Rationale: Verbal cues, Tactile cues, Hand placement, Positioning, Technique of activity Skilled Intervention/Details: Supine->Sit: Cues for technique of transfer and pt needing increased assistance for managing legs and trunk to EOB positioning Transfer Assessment/Intervention: Sit to Stand Transfer [place] Level: Sit->Stand: moderate assist (50% patient effort) Physical Assist: Sit->Stand: 2 person assist Assistive Device: Sit->Stand: gait belt, hand held assist Skilled Rationale: Verbal cues, Tactile cues, Hand placement, Positioning, Full extension to upright positioning/posture, Technique of activity Skilled Intervention/Details: Sit->Stand: x1 from EOB, x2 from BSC. Cues for hand and foot placement and reaching full extension when standing. Pt presenting with forward flexed posture, needing increased physical cues for moving shoulders back and bringing head up. Pt provided bilat hand held support Stand to Sit Transfer [place] Level: Stand->Sit: moderate assist (50% patient effort) Physical Assist: Stand->Sit: 2 person assist Assistive Device: Stand->Sit: gait belt, hand held assist Skilled Rationale: Verbal cues, Tactile cues, Hand placement, Positioning, Controlled descent for sitting Skilled Intervention/Details: Stand->Sit: Cues for positioning with BSC and recliner, pt provided bilat hand held support and needing increased support for managing a controlled descent Bed-Chair Transfer [place] Level: Bed<->Chair: maximum assist (25% patient effort) Physical Assist: Bed<->Chair: 2 person assist Assistive Device: Bed<->Chair: gait belt, hand held assist Skilled Rationale: Verbal cues, Tactile cues, Hand placement, Positioning, Sequencing, Full extension to upright positioning/posture, Upright gaze/neck extension, Technique of activity Skilled Intervention/Details: Bed<->Chair: Cues for sequencing steps for stand pivot to BSC and recliner, both positioning to the R of the pt. Pt provided bilat hand held support and needing increased cues and support for managing L side during transfer Toilet Transfer [place] Level: Toilet: moderate assist (50% patient effort) Physical Assist: Toilet: 2 person assist Assistive Device: Toilet: gait belt, hand held assist Skilled Rationale: Verbal cues, Tactile cues, Hand placement, Positioning, Full extension to upright positioning/posture, Upright gaze/neck extension, Technique of activity Skilled Intervention/Details: Toilet: mod x2 A bilat hand held support provided for pt to stand from BSC. Cues for managing L side and assuming an upright posture and upright gaze when standing Outcome Score(s): CURRENT [facility] Daily Activity Inpatient Short Form Putting on/Taking Off Lower Body Clothin - Total Assistance Bathin - A Lot of Assistance Toiletin - Total Assistance Putting on/Taking Off Upper Body Clothin - A Little Assistance Groomin - A Little Assistance Eatin - Total Assistance CURRENT [facility] Activity Raw Score: 11 CURRENT [facility] Activity Functional Limitation/Modifier: 70.42% Currently Impaired in Daily Activity- CL Interventions: Intervention 1 Intervention Name: Neuro Re-ed Details: Pt encouraged throughout session to attend to L side visually and physically, cued to findspecific items throughout the room and physically move LUE with RUE. Pt challenged to continue scanning to the L when standing and completing tasks, and asked to continue trying to attend to L side outside of sessions and stimulate L side. Assessment & Plan: Pt making limited progress towards goals, completing x3 stand pivots with max x2 A from EOB to BSC to recliner. Pt with successful bowel and bladder movements, but needing increased assistance with managing clothing and pericare. Pt needing continuous cues for attending to L side and scanning to L side throughout session. Pt continues to be limited by cognition, balance, LUE weakness, activity tolerance, and functional mobility, and pt would benefit from continued skilled OT services to addresssafety and participation in ADLs. Patient Instruction/Education this session: Learners: Patient Education provided: Activity outside of therapy, Balance training, Bed mobility, Plan of care, Roleof this discipline, Safety Teaching method: Verbal Education/Instruction Learner response: Needs review Learning considerations: Cognition Plan for next session: Standing tolerance, ADL participation, L side scanning and neuro re-ed Acute OT Goals Plan of Care by Teagan Cronin OT at 08/14/2024 9:45 AM Version 1 of 1 Problem: OT - Transfers Goal: Transfers Toilet/ Bedside Commode - Patient will transfer to/from toilet/bedside commode withsupervision for improved ability to safely complete ADLs. Outcome: Progressing Problem: OT - Strength/ROM Goal: Neuro Re-education - Patient will participate in neuro re-ed of left upper extremity with supervision and 90% accuracy for improved functional use in ADLs. Outcome: Progressing Problem: OT - Vision Goal: Visual Scanning ADL - Patient will employ use of visual compensatory strategies with no greater than min cues in 5/5 trials to increase participation and safety in ADLs. Outcome: Progressing OT treatment consisted of the following to work and progress towards the above goal(s): OT Evaluation and Treatment Time Self Care/Home Management (ADLs) Time Entry: 30 Treating Therapist: Jazzy Aguiar Additional Details: OT Co-Eval/Treatment Information Co-evaluation/co-treatment performed?: Yes, simultaneous billable skilled care was necessary due tomedical complexity and functional deficits Other discipline: PT Rationale for need to co-eval/treat: postural control, cognition, coordination Co-treatment goal focus: self-care, cognition, coordination Assisted by during session: MARY Cronin PPE used during patient interaction: gloves Patient location at end of session: chair Alarms on at end of session: chair alarm, RN aware Needs in reach. Time In: 916 Time Out: 946 Total Visit Time: 30 minutes Total Treatment Time (skilled, billable minutes): 30 minutes Upon discontinuation of Acute Care Occupational Therapy Services or patient discharge from the hospital this note represents the current Occupational Therapy Discharge Summary. Cosigned by Teagan Cronin OT at 08/14/2024 11:33 AM EDT Associated attestation - Teagan Cronin OT - 08/14/2024 11:33 AM EDT I, Teagan Cronin OT, provided direct guidance in the room during this patient care session. I attest that all documentation reflects accurate skilled clinical decisions and judgements. * Prema Rosales, PT - 08/14/2024 9:15 AM EDT Acute Physical Therapy Treatment Prior Gross Functional Mobility: independent Current AM-PAC score(s): CURRENT AM-PAC Mobility Raw Score: 8 Based on the above AM-PAC score(s) and PT clinical judgment, patient is a good candidate for discharge to Inpatient Rehab Facility (pt with decreased tolerance to therapy but will continue to assess) Supporting Factors (would benefit from skilled therapy services): Patient status is anticipated to be appropriate to tolerate inpatient rehab therapy requirements at time of discharge from acute care, Decreased endurance necessitating skilled therapy services, but able to tolerate therapy requiremen ts for inpatient rehab, Assistance needed with functional mobility Mobility equipment available at home: rollator, straight cane ADL equipment available at home: shower chair Equipment needed for discharge: to be determined Current therapy frequency recommendation in acute: PT Therapy Frequency: 5 times a week Activity Recommendations for outside of rehab session: radha Precautions and Weightbearing Status: Existing Precautions/Restrictions: fall Telemetry, Tube feed Patient Safety Communication Prior to Visit: Nursing Subjective: Pt agreeable to therapy reporting I don't know for recall of homework three times after re-education Pain: General Pain Documentation (Adult, OB, Peds) Presence of Pain: denies pain/discomfort Presence of Pain Score (Auto-calculated): 0 Objective/Observation: Vitals/Vitals Responses to Treatment: HR 85 to 100 SPO2 98 to 95% Cognition Overall Cognitive Status: Impaired Arousal/Alertness: Delayed responses to stimuli Orientation Level: Oriented to person, Oriented to place, Oriented to situation ("[place]" "hospital" "May" "2024" "stroke") Following Commands: Follows one step commands with increased time, Follows one step commands with repetition Safety Judgment: Decreased awareness of need for assistance, Decreased awareness of need for safety Attention Span: Attends with cues to redirect Memory: Decreased recall of recent events, Decreased short term memory Cognition Comments: pt unable to recall L attention cues or correct handheld placement for R helping L with re-education x3 Balance: Sitting Balance Static Sitting-Level of Assistance: Contact guard (initial max and once with mod assist leaning back on therapist) Dynamic Sitting-Level of Assistance: Minimum assistance Sitting Balance Skilled Intervention/Details: Pt sitting EOB approx 8 min, needing increased cues for maintaining upright neck positioning and using BUEs for increased stability. Pt experiencing x1 LOB posteriorly needing mod A to correct, and pt continuing to need cues to correct posterior lean and avoid pushing Standing Balance Static Standing-Level of Assistance: Moderate assistance, 2-person assist Dynamic Standing-Level of Assistance: Maximum assistance, 2-person assist Standing-Balance Support: Gait belt (arm in arm) Standing Balance Skilled Intervention/Details: cues for midline, upright with ongoing R lean and pushing to left with RLE demo'ing bilat ankle inversion in standing improved with decreased base of support and increased blocking Mobility Assessment/Intervention: Supine to Sit Mobility [place] Level: Supine->Sit: moderate assist (50% patient effort) Physical Assist: Supine->Sit: 2 person assist Bed Features/Set-up: Supine->Sit: Head of bed elevated, Use of bed rail Skilled Intervention/Details: Supine->Sit: cues for LE to L with LLE offloading assist but good participation. Repeat cues to assist with bedrail find and RUE assisting to L with mod assist for trunk upright despite through R shoulder (demos elevation bilat in sitting) Transfer Assessment/Intervention: Sit to Stand Transfer [place] Level: Sit->Stand: moderate assist (50% patient effort) Physical Assist: Sit->Stand: 2 person assist Assistive Device: Sit->Stand: gait belt Skilled Rationale: Arm in arm, Patellar block, Ischial assist, Facilitate anterior shift, Full extension to upright positioning/posture, Finding/maintaining midline positioning Skilled Intervention/Details: Sit->Stand: repeat cues to avoid significant L lean with improvement last standing. x1 from EOB, x2 from BSC Stand to Sit Transfer [place] Level: Stand->Sit: moderate assist (50% patient effort) Physical Assist: Stand->Sit: 2 person assist Assistive Device: Stand->Sit: gait belt Skilled Rationale: Arm in arm, Controlled descent for sitting Skilled Intervention/Details: Stand->Sit: last trial assisted R hand to recliner arm rest and ongoing cues for wt shift to R Bed-Chair Transfer [place] Level: Bed<->Chair: maximum assist (25% patient effort) Physical Assist: Bed<->Chair: 2 person assist Assistive Device: Bed<->Chair: gait belt Skilled Rationale: Arm in arm, Patellar block, Ischial assist, Facilitate anterior shift, Full extension to upright positioning/posture, Finding/maintaining midline positioning, Technique of activity Skilled Intervention/Details: Bed<->Chair: upright and lateral wt shift assist as well as LLEadvancement assist and LLE dependent but demos LLE step back with increased cues and increased lateral wt shift assist Gait/Functional Mobility Assessment/Intervention: Stairs Assessment/Intervention: Outcome Score(s): CURRENT [facility] Basic Mobility Inpatient Short Form Turning over in bed: 2 - A Lot of Assistance Moving from lying on back to sittin - Total Assistance Moving to and from bed to chair: 1 - Total Assistance Sitting/standing from chair: 2 - A Lot of Assistance Walk in hospital room: 1 - Total Assistance Climbing 3-5 steps with a railin - Total Assistance CURRENT [facility] Mobility Raw Score: 8 CURRENT [facility] Mobility Functional Limitation: 86.62% Impaired in Basic Mobility Interventions: Intervention 1 Intervention Name: [facility] supine and sitting Details: education L attention including visual input including during sitting with visual scanningto L posterior to shoulder by 15 deg, AROM and tactile input to L side. Education for L arm protection and seated safety, AROM shoulder shrugs (tactile feedback L), AROM bilat quad sets, ankle pumps and toe curls x5, hip abduction/ adduction x2 with AAROM for L Assessment & Plan: Pt with slow progress toward goals limited by fatigue, decreased attention to task with L inattention, proprioception, balance, strength and cognition deficits benefiting from therapy to progress toward mobility PLOF Patient Instruction/Education this session: Learners: Patient Education provided: Activity outside of therapy, Neuromuscular re-education, Bed mobility, Functional transfers Teaching method: Simulation, Verbal Education/Instruction Learner response: Needs review, Returns demonstration Learning considerations: Cognition Plan for next session: progress L attention/ motor recovery, standing, transfers to gait Acute PT Goals Plan of Care by Prema Rosales PT at 08/14/2024 9:15 AM Version 1 of 1 Problem: PT - General Goals Goal: Supine <-> Sit Transfers - Patient will perform supine to/from sit transfers with contact guard assistance and with use of hospital bed features in order to improve functional mobility and safety. Outcome: Ongoing Goal: Sit <-> Stand Transfers - Patient will perform sit to/from stand transfers with minimalassistance and least restrictive device in order to improve functional mobility and safety. Outcome: Ongoing Goal: Standing Endurance/Balance - Patient will perform standing balance tasks for 5 min with minimal assistance and least restrictive device Outcome: Ongoing PT treatment consisted of the following to progress towards the above goal(s): PT Evaluation and Treatment Time Therapeutic Activity Time Entry: Neuromuscular Re-Education Time Entry: 10 Treating Therapist: Shaina Rosales PT, DPT [id number] 08/14/2024 Additional Details: PT Co-Eval/Treatment Information Co-evaluation/co-treatment performed?: Yes, simultaneous billable skilled care was necessary due tomedical complexity and functional deficits Other discipline: OT Rationale for need to co-eval/treat: postural control, alertness/arousal, cognition, coordination Co-treatment goal focus: mobility, transfer PPE used during patient interaction: gloves Patient location at end of session: chair Alarms on at end of session: chair alarm Needs in reach. Time In: 914 Time Out: 947 Total Visit Time: 33 minutes Total Treatment Time (skilled, billable minutes): 33 minutes Upon discontinuation of Acute Care Physical Therapy Services or patient discharge from the hospitalthis note represents the current Physical Therapy Discharge Summary. * Tanja Cason, NETWORK SUPPORT ENGINEER - 08/14/2024 8:37 AM EDT Acute Care Speech Language Pathology Treatment Diet Recommendations: Recommended Method of Nutrition: NPO Recommended Medication Administration (as appropriate per MD): Non-Oral Assistance: nurse/aide *Consider limited ice chips following oral care, given strict 1:1 RN supervision to assist in secretions clearance and reduce risk of disuse atrophy. *To prevent potential development of aspiration pneumonia/nosocomial infections, RECOMMEND: Oral care routine q4h and HOB upright as tolerated Best mode of Communication: verbal Communication Strategies: Provide education with family present d/t severity of Lindsay's attention, memory, insight impairments. Discharge Recommendations: Based on the below outcome measures/assessment score(s) and NETWORK SUPPORT ENGINEER clinicaljudgment, discharge destination recommendation is: IPR Barriers to discharge home: 1:1 assist needed for IADL's including medication management and finances Supporting factors for discharge setting: Impaired swallow function limiting nutritional status andsafety with oral intake, Impaired cognitive skills limiting safety/insight Acute NETWORK SUPPORT ENGINEER Outcomes Tracking Communicate basic wants and needs?: yes Demo insight/appreciation of deficits?: no Complete basic problem solving?: no Current therapy frequency recommendation in acute: Speech/Lang/Cog Therapy Frequency: 3 times a week Swallow Therapy Frequency: 5 times a week Clinical Impression: October continues with mod-severe cognitive-communicative impairments, and suspect ongoing mod-severe oropharyngeal dysphagia s/p right CVA. She continues to engage in education and exercises, though severity of her attention, memory, insight impairments limit independent carry over. Strong family support. Ongoing NETWORK SUPPORT ENGINEER s indicated. Subjective information: Alert, present. SO referenced his notes from yesterday and reportedcarry over of exercises yesterday. Patient with zero recall Pain: Nonverbal indicator not present Precautions: Patient Safety Communication Prior to Visit: Nursing Lines/Tubes/Drains (Rehab Status): Telemetry, Tube feed Existing Precautions/Restrictions: fall Respiratory Status: O2 Sat (%): 96 % (08/14 0711) O2 Device: room air (08/14 0947) Acute NETWORK SUPPORT ENGINEER Goals Plan of Care by Tanja Cason, NETWORK SUPPORT ENGINEER at 08/14/2024 2:42 PM Version 1 of 1 Problem: Dysphagia Goal: Bolus challenge - Patient will accept trials of various liquids x10-12 trials, given moderatecues for use of strategies to improve bolus control/timing of swallow initiation with no signs of aspiration to determine readiness for repeat study Thin liquids x10. Single sips, placement to right were ineffective to eliminate or reduce frequencyof cough. Trialed puree via tsp x5 with ongoing signs of penetration/aspiration and incomplete bolus formation with pocketing left. Oral care to clear. Does not yet appear appropriate for repeat instrumental. Outcome: Ongoing Goal: Effortful Swallow Goal - Patient will complete repetitions of effortful swallow until reaching a self-reported level of fatigue (7/10 rating) to improve pharyngeal clearance and airway protection during the swallow Unclear "effortful" nature of her repetitions, though she did appear to swallow to command across 11 reps. Reviewed rationale for effortful nature and appropriate cues for to continue carry over with ice chips. Outcome: Ongoing Goal: TORO- Patient will complete isometric exercises (5 repetitions with a 10- second interval between the sets for a maximum of 2 sets) to improve pharyngeal swallow given fading verbal cues for formand pacing over x3-5 sessions Reps x15. Requires cues for pacing and RoM to achieve technique. Outcome: Ongoing Problem: NETWORK SUPPORT ENGINEER - Cognition Goal: Orientation Log - Patient will recall/implement use of orientation strategies, with minimal cues per assessment protocol, to demonstrate improved awareness and insight as measured by achieving a 27/30 on the O-Log Did not address, RN arrived for morning medications. Outcome: Ongoing Goal: Attention: Strategies - Patient will teach back strategies to support attention and generate at least two examples within immediate environment with minimal cues to improve attention/participation in daily activities Provided education to family highlighting presence of attention, insight and memory impairments. Taught family strategies to reduce distractions though patient did not teach back. Outcome: Ongoing Goal: Problem Solving/Insight - Patient will answer personal problem-solving questions related to acute deficits and impact on function in 3/3 opportunities with minimal cueing to promote insight to deficits, safety, and return to independence Patient with 0% accuracy for problem solving and did not recall left sided weakness, any prior dysphagia education. Despite actively not moving, she reported she was moving her left side/UE. Utilizedthese discrepancies to highlight insight impairments. Normalized this phenomenon s/p right CVA and e ncouraged ongoing open communication with patient/family/care team. Outcome: Ongoing Patient Education/Instruction Learners: Patient, Spouse Education provided: Communication strategies, Dysphagia risk factors, Dysphagia recommendations/impressions, Dysphagia recommendation risk: benefit analysis, Oral care/impact on aspiration pneumonia risk factors, Positioning Teaching method: Verbal Education/Instruction Learner response: States/Identifies/Teaches back Patient Instruction/Education comments: Reviewed oral care, mobility as able, overt signs of ongoing pharyngeal dysphagia. Cognitive-communicative impairments and highlighted insight and memory for spouse Plan for next session: 08/14 - ongoing exercises, education NETWORK SUPPORT ENGINEER Outcomes: FOIS 2 Speech Language Pathologist: RIKI Blancas Time In: 836 Time Out: 904 Total Visit Time: 28 minutes Total Treatment Time (skilled, billable minutes): 28 minutes Non-billable assistance during session: na Assisted by during session: na PPE used during patient interaction: gloves Patient location/status at end of session: bed with head of bed elevated Patient alarms at end of session: none altered Needs in reach. NETWORK SUPPORT ENGINEER Evaluation and Treatment Time Speech Therapy - Individual 00782: 14 Swallowing Dysfunction Treatment 53497: 14 Upon discontinuation of Acute Care Speech Therapy Services or patient discharge from the hospital this note represents the current Speech Therapy Discharge Summary * RIKI Blancas - 08/13/2024 11:10 AM EDT Acute Care Speech Language Pathology Treatment Diet Recommendations: Recommended Method of Nutrition: NPO Recommended Medication Administration (as appropriate per MD): Non-Oral Assistance: nurse/aide *Consider limited ice chips following oral care, given strict 1:1 RN supervision to assist in secretions clearance and reduce risk of disuse atrophy. *To prevent potential development of aspiration pneumonia/nosocomial infections, RECOMMEND: Oral care routine q4h and HOB upright as tolerated Best mode of Communication: verbal Communication Strategies: minimize distractions, provide education when family present as patient with severe attention and memory impairments at this time Discharge Recommendations: Based on the below outcome measures/assessment score(s) and NETWORK SUPPORT ENGINEER clinicaljudgment, discharge destination recommendation is: Inpatient Rehab Facility Barriers to discharge home: 1:1 assist needed for IADL's including medication management and finances Supporting factors for discharge setting: Impaired swallow function limiting nutritional status andsafety with oral intake, Impaired cognitive skills limiting safety/insight Acute NETWORK SUPPORT ENGINEER Outcomes Tracking Communicate basic wants and needs?: yes Demo insight/appreciation of deficits?: no Complete basic problem solving?: no Current therapy frequency recommendation in acute: Speech/Lang/Cog Therapy Frequency: 3 times a week Swallow Therapy Frequency: 5 times a week Clinical Impression: Suspect ongoing mod-severe oropharyngeal dysphagia, relatively consistent with MBS from last week with ongoing signs of penetration/aspiration with thin liquids and mildly thick liquids. Frequency isdecreasing, though aspiration was intermittently silent so this is not a reliable indicator at bedside. Severity of patient's impaired recall and teach back of prior education/exercises is a barrier to progression. Focused on family education this date and spouse took detailed notes to carry over exercises. Ongoing mod-severe cognitive-communicative impairments with attention, memory, insight and problem solving. reported she's "all over the place" though patient denied any concerns this date. Subjective information: Alert, motivated for po intake, no insight into dysphagia and no recall of prior education. Family motivated for exercise to carry over between sessions Pain: General Pain Documentation (Adult, OB, Peds) Presence of Pain: denies pain/discomfort Presence of Pain Score (Auto-calculated): 0 Precautions: Patient Safety Communication Prior to Visit: Nursing Lines/Tubes/Drains (Rehab Status): Urinary catheter, Telemetry Existing Precautions/Restrictions: fall Respiratory Status: O2 Sat (%): 96 % (08/13 710) O2 Device: room air (08/13 710) Acute NETWORK SUPPORT ENGINEER Goals Plan of Care by Tanja Cason NETWORK SUPPORT ENGINEER at 08/13/2024 11:10 AM Version 1 of 1 Problem: Dysphagia Goal: Bolus challenge - Patient will accept trials of various liquids x10-12 trials, given moderatecues for use of strategies to improve bolus control/timing of swallow initiation with no signs of aspiration to determine readiness for repeat study Addressed via 7 thin liquids and 7 mildly thick liquids. Cough with 2 each. Impulsive and did not respond to verbal cues for single sips, despite repetition. Not yet appropriate for repeat instrumental. Outcome: Ongoing Goal: Effortful Swallow Goal - Patient will complete repetitions of effortful swallow until reaching a self-reported level of fatigue (7/10 rating) to improve pharyngeal clearance and airway protection during the swallow Demonstrated and verbal + tactile cues provided to teach technique to patient and spouse. He took detailed notes and voiced intent to continue as HEP. Requires max cues to sustain attention to exercise. 10 reps this session. Outcome: Ongoing Goal: TORO- Patient will complete isometric exercises (5 repetitions with a 10- second interval between the sets for a maximum of 2 sets) to improve pharyngeal swallow given fading verbal cues for formand pacing over x3-5 sessions Demonstrated and verbal + tactile cues provided to teach technique to patient and spouse. He took detailed notes and voiced intent to continue as HEP. Requires max cues to sustain attention to exercise. 10 reps this session. Outcome: Ongoing Problem: NETWORK SUPPORT ENGINEER - Cognition Goal: Orientation Log - Patient will recall/implement use of orientation strategies, with minimal cues per assessment protocol, to demonstrate improved awareness and insight as measured by achieving a 27/30 on the O-Log Did not address d/t focus on education. Outcome: Ongoing Goal: Attention: Strategies - Patient will teach back strategies to support attention and generate at least two examples within immediate environment with minimal cues to improve attention/participation in daily activities Provided examples of current distractibility and strategies to reduce distractions in environment. Highlighted using visuals/manipulatives in patient's visual field, as able. She does not teach back,multiple choice inconsistent. Outcome: Ongoing Goal: Problem Solving/Insight - Patient will answer personal problem-solving questions related to acute deficits and impact on function in 3/3 opportunities with minimal cueing to promote insight to deficits, safety, and return to independence Reviewed in relation to current dysphagia care planning. Encouraged with max verbal + tactile cues to consider education provided immediately prior to each prompt. Patient perseverated on coke. Outcome: Ongoing Patient Education/Instruction Learners: Patient, Spouse Education provided: Communication strategies, Dysphagia risk factors, Dysphagia recommendations/impressions, Dysphagia recommendation risk: benefit analysis, Oral care/impact on aspiration pneumonia risk factors, Positioning Teaching method: Verbal Education/Instruction, Demonstration (Spouse actively took notes) Learner response: States/Identifies/Teaches back Learning preferences: Auditory Learning considerations: Cognition Patient Instruction/Education comments: Role of NETWORK SUPPORT ENGINEER, presence and normalized frustration with cognitive-communicative impairments. Focused on memory this date and that patient does not recall education so perseverative questions are normal. Reviewed intermittent silent aspiration from MBS last weekand ongoing signs of dysphagia this session, will plan to coordinate timing for repeat instrumentalwith care team Plan for next session: 08/13 -[facility] NETWORK SUPPORT ENGINEER Outcomes: FOIS 2 Speech Language Pathologist: RIKI Blancas Time In: 0825 Time Out: 0850 Total Visit Time: 25 minutes Total Treatment Time (skilled, billable minutes): 25 minutes Non-billable assistance during session: na Assisted by during session: na PPE used during patient interaction: gloves Patient location/status at end of session: bed with head of bed elevated Patient alarms at end of session: none altered Needs in reach. NETWORK SUPPORT ENGINEER Evaluation and Treatment Time Speech Therapy - Individual 02263: 12 Swallowing Dysfunction Treatment [id number]: 13 Upon discontinuation of Acute Care Speech Therapy Services or patient discharge from the hospital this note represents the current Speech Therapy Discharge Summary * OWEN Benavides - 08/12/2024 3:21 PM EDT Placement Plan Expected Discharge Date: 08/14/2024 Referred Level of Care: IPR Barriers: Medical Readiness & Precertification Current Referrals and Status 1. Tyler Garcia-accepted IPR started precertification today. BULMARO Allen Chinese Herbalist * Jazzy Aguiar - 08/12/2024 10:46 AM EDT Acute Occupational Therapy Treatment Prior Gross Functional Mobility: independent Current AM-PAC score(s): CURRENT AM-PAC Activity Raw Score: 9 Based on the above AM-PAC score(s), and OT clinical judgment, discharge destination recommendation is: Inpatient Rehab Facility Barriers to discharge home: Patient needs assistance with functional mobility, Patient needs assistance with ADLs, Patient needs assistance with IADLs (see note below) Supporting Factors (would benefit from skilled therapy services): Patient status is anticipated to be appropriate to tolerate inpatient rehab therapy requirements at time of discharge from acute care, Impaired functional status, Decreased strength, Impaired balance, Decreased endurance, Impaired self-care abilities, Impaired cognitive status, Assistance needed with functional mobility, Fall risk Mobility equipment available at home: rollator, straight cane ADL equipment available at home: shower chair Equipment recommendations for discharge: wheelchair, bedside commode Equipment issued: foam sponge Current therapy frequency recommendation(s) in acute: 5 times a week Precautions and Weightbearing Status: OT Existing Precautions/Restrictions: fall, cardiac Telemetry, Urinary catheter, Tube feed Patient Safety Communication Prior to Visit: Nursing Subjective: Pt agreeable to OT session, laying in bed with head elevated Pain: General Pain Documentation (Adult, OB, Peds) Presence of Pain: denies pain/discomfort Presence of Pain Score (Auto-calculated): 0 Objective/Observation: Vitals/Vitals Responses to Treatment: VSS O2 Device: room air Cognition Overall Cognitive Status: Impaired Arousal/Alertness: Delayed responses to stimuli Orientation Level: Oriented to person Following Commands: Follows one step commands with increased time, Follows one step commands with repetition Safety Judgment: Decreased awareness of need for assistance, Decreased awareness of need for safety Awareness of Errors: Assistance required to identify errors made, Assistance required to correct errors made Deficits: Decreased awareness of deficits Attention Span: Attends with cues to redirect ADL Assessment/Intervention: ADLs: ADL Assessment: Grooming Deficit Grooming Assistance: Moderate Grooming Location: standing at sink, seated at sink Grooming Deficit: Increased time to complete, Activity tolerance, Generalized weakness, Balance, Wash/dry hands, Wash/dry face Grooming Skilled Rationale (Verbal/Tactile/Visual/Demonstration): Facilitate positioning, Facilitate postural control, Technique of activity, Setup, Supervision Grooming Intervention/Details: Pt able to bring washcloth to face standing and appropriately clean L hand with R hand seated on chair, needing increased cues for attending visually to the L side. Pt needing max x2 for standing balance sinkside, cued to use the mirror for visual feedback on positioning and completion of grooming task. Pt able to clean L hand seated, but needing cues for sequencingand using R hand to manipulate L hand positoining. Balance: Sitting Balance Static Sitting-Level of Assistance: (Contact gaurd to mod A) Skilled Rationale: Verbal cues, Tactile cues, Hand placement, Positioning, Full extension to upright positioning/posture, Upright gaze/neck extension, Technique of activity Sitting Balance Skilled Intervention/Details: Pt sitting EOB approx 8 min, needing increased cues for maintaining upright neck positioning and using BUEs for increased stability. Pt experiencing x1 LOB posteriorly needing mod A to correct, and pt continuing to need cues to correct posterior lean Standing Balance Static Standing-Level of Assistance: Maximum assistance, 2-person assist Standing-Balance Support: Gait belt Skilled Rationale: Verbal cues, Tactile cues, Hand placement, Full extension to upright positioning/posture, Upright gaze/neck extension, Technique of activity Standing Balance Skilled Intervention/Details: Pt standing sinkside approx 1 min, needing increasedsupport for managing L side and balance due to heavy L lateral lean. Pt cued to use mirror for visual feedback on positioning when standing sinkside Mobility Assessment/Intervention: Supine to Sit Mobility [place] Level: Supine->Sit: moderate assist (50% patient effort) Physical Assist: Supine->Sit: 2 person assist Bed Features/Set-up: Supine->Sit: Head of bed elevated, Use of bed rail Skilled Rationale: Verbal cues, Hand placement, Positioning, Technique of activity Skilled Intervention/Details: Supine->Sit: Pt cued for hand placement on bed rail and bending RLE to help initiate roll to L side. Pt needing increased assistance with managing LLE, needing mod x2A for managing legs and trunk positioning Transfer Assessment/Intervention: Sit to Stand Transfer [place] Level: Sit->Stand: maximum assist (25% patient effort) Physical Assist: Sit->Stand: 2 person assist Assistive Device: Sit->Stand: gait belt, hand held assist Skilled Rationale: Verbal cues, Tactile cues, Hand placement, Positioning, Full extension to upright positioning/posture, Technique of activity Skilled Intervention/Details: Sit->Stand: x1 from EOB, x1 from recliner. Pt needing increased support and cues for managing L side, needing bilat hand held support and knee blocking. Cues for maintaining upright posture Stand to Sit Transfer [place] Level: Stand->Sit: maximum assist (25% patient effort) Physical Assist: Stand->Sit: 2 person assist Assistive Device: Stand->Sit: gait belt, hand held assist Skilled Rationale: Verbal cues, Tactile cues, Hand placement, Positioning, Controlled descent for sitting Skilled Intervention/Details: Stand->Sit: Cues for positioning with recliner and using BUEs to help with appropriate positoining of hips in chair Bed-Chair Transfer [place] Level: Bed<->Chair: maximum assist (25% patient effort) Physical Assist: Bed<->Chair: 2 person assist Assistive Device: Bed<->Chair: gait belt Skilled Rationale: Verbal cues, Tactile cues, Hand placement, Positioning, Technique of activity Skilled Intervention/Details: Bed<->Chair: x1 from EOB to recliner on R. Pt needing increasedsupport for managing L side and sequencing steps for appropriate positioning with recliner Outcome Score(s): CURRENT [facility] Daily Activity Inpatient Short Form Putting on/Taking Off Lower Body Clothin - Total Assistance Bathin - A Lot of Assistance Toiletin - Total Assistance Putting on/Taking Off Upper Body Clothin - A Lot of Assistance Groomin - A Lot of Assistance Eatin - Total Assistance CURRENT [facility] Activity Raw Score: 9 CURRENT [facility] Activity Functional Limitation/Modifier: 79.59% Currently Impaired in Daily Activity- CL Assessment & Plan: Pt making limited progress towards goals, completing stand pivot from EOB to chair with max x2 A for sequencing and balance. Pt standing sinkside approx 1 min for cleaning face, needing max x2 A for managing balance with heavy L lateral lean. Pt continues to need increased cues for attending visually and physically to L side, showing minimal head turning to the L. Pt continues to be limited by cognition, balance, LUE weakness, activity tolerance, and functional mobility, and pt would benefit from continued skilled OT services to address safety and participation in ADLs. Patient Instruction/Education this session: Learners: Patient, Spouse Education provided: Activity outside of therapy, Balance training, Plan of care, Role of this discipline, Safety Teaching method: Verbal Education/Instruction Learner response: Needs review Learning considerations: Cognition Plan for next session: CECILIO neuro re-ed, standing tolerance, ADL engagement Acute OT Goals Plan of Care by Teagan Cronin OT at 08/12/2024 10:30 AM Version 1 of 1 Problem: OT - Transfers Goal: Transfers Toilet/ Bedside Commode - Patient will transfer to/from toilet/bedside commode withsupervision for improved ability to safely complete ADLs. Outcome: Ongoing Problem: OT - Strength/ROM Goal: Neuro Re-education - Patient will participate in neuro re-ed of left upper extremity with supervision and 90% accuracy for improved functional use in ADLs. Outcome: Ongoing Problem: OT - Cognition Goal: Cognition Simple ADL - Patient will demonstrate improved cognition, completing simple ADL task for 7 minutes with no greater than min cues required to maintain attention. Outcome: Ongoing Problem: OT - Vision Goal: Visual Scanning ADL - Patient will employ use of visual compensatory strategies with no greater than min cues in 5/5 trials to increase participation and safety in ADLs. Outcome: Ongoing OT treatment consisted of the following to work and progress towards the above goal(s): OT Evaluation and Treatment Time Self Care/Home Management (ADLs) Time Entry: 10 Neuromuscular Re-Education Time Entry: 14 Treating Therapist: Jazzy Aguiar Additional Details: OT Co-Eval/Treatment Information Co-evaluation/co-treatment performed?: Yes, simultaneous billable skilled care was necessary due tomedical complexity and functional deficits Other discipline: PT Rationale for need to co-eval/treat: postural control, cognition, coordination Co-treatment goal focus: self-care, cognition, coordination Assisted by during session: MARY Cronin PPE used during patient interaction: gloves Patient location at end of session: chair Alarms on at end of session: chair alarm, RN aware Needs in reach. Time In: 1022 Time Out: 1046 Total Visit Time: 24 minutes Total Treatment Time (skilled, billable minutes): 24 minutes Upon discontinuation of Acute Care Occupational Therapy Services or patient discharge from the hospital this note represents the current Occupational Therapy Discharge Summary. Cosigned by Teagan Cronin OT at 08/12/2024 11:31 AM EDT Associated attestation - Teagan Cronin OT - 08/12/2024 11:31 AM EDT I, Teagan Cronin, OT, provided direct guidance in the room during this patient care session. I attest that all documentation reflects accurate skilled clinical decisions and judgements. * Tianna Murray, NITHYA - 08/12/2024 10:37 AM EDT NUTRITION FOLLOW-UP Nutrition Recommendations and Plan of Care: Continue TF of Glucerna 1.5 at 55 mL/hr x 22 hours/day (held 1 hour prior to and 1 hour after Synthroid administration daily). Increase free water flushes to 150 mL q4 hours (x6/day) to meet daily hydration needs. Consider decreasing bowel regimen d/t liquid stool. Monitor TF intake, TF tolerance, GI function, skin integrity, weight changes, and labs. RD to continue to follow. October Armand is a 78 y.o. female with PMH significant for CAD, HTN, HLD, T2DM, Afib (on Eliquis, although patient reports she has not been taking it) who presents with L hemiplegia, slurred speech. LKW 0915 on 08/02, later found down with slurred speech and L hemiplegia. She presented to [facility] and was seen on Telestroke, NIHSS 12. CTH showed no acute hemorrhage or large territory stroke. CTA with mid R M1 occlusion. She was not given IV TNK due to unclear last dose of Eliquis ( unsure of last dose). She was transferred to [facility] for further management. Underwent mechanical thrombectomy with TICI 2b revascularization. Nutrition History/Assessment: Pt last assessed by RD 08/05. RD recommended TF of Glucerna 1.5 at 55 mL/hr x 22 hours/day. Per MAR,TF has been held off and on in the past week for several different meds, procedures, etc. Per I/Os,in the past week pt received an average TF volume of 980 mL/day, meeting 81% of goal TF volume. Pt last assessed by NETWORK SUPPORT ENGINEER 08/08 with recommendations for NPO. S/p PEG placement 08/09. Visited pt and pt's family member at bedside this afternoon. Pt reports she is tolerating her TF well- denies any N/V, diarrhea, constipation, or abdominal pain. Has no concerns regarding TF at this time. Reports she is very thirsty. Have reached out to team- pt OK to have ice chips. Will also increase free water flushes. NETWORK SUPPORT ENGINEER to see pt tomorrow. Nutrition Focused Physical Exam: Nutrition Focused Physical Exam Completed?: completed Subcutaneous Fat Loss: Orbital Region (Orbital Fat Pads): WDL Cheek Region (Buccal Fat Pads): WDL Upper Arm Region (Triceps): WDL Thoracic and Lumbar Region (Ribs, Lower Back, Midaxillary Line): WDL Muscle Wasting: Mandaeism Region (Temporalis Muscle): deferred (lac over eyebrow) Clavicle Bone Region (Pectoralis Major, Trapezius Muscles): WDL Shoulder and Acromion Process Region (Deltoid Muscle): WDL Dorsal Hand (Interosseous Muscle): WDL Scapular Bone Region (Trapezius, Supraspinatus, Infraspinatus Muscles): WDL Anterior Thigh and Patellar Region (Quadriceps Muscles): WDL Posterior Calf Region (Gastrocnemius Muscle): WDL Fluid Evaluation: WDL has no allergies on file. Current Diet Orders Procedures DIET NPO with meds Via PEG Standing Status: Standing Number of Occurrences: 1 NPO Meds:: with meds Ht: 5' 7" Current Wt: 78 kg (172#) Admit Wt: 78.3 kg (172 lb 9.9 oz) IBW: 61.4 kg (135#) %IBW: 128%BMI: 26.9 Weight History: 08/05/24 78 kg (172 lb) 06/26/24 78.9 kg (174 lb)-[facility] 05/31/24 79 kg (174 lb 2.6 oz)-[facility] 11/28/23 80.6 kg (177 lb 9.6 oz)-[facility] 09/29/23 84 kg (185 lb)-[facility] meds reviewed: Scheduled: Reviewed, includes insulin, Synthroid, Miralax, senna Continuous: none Labs reviewed: Sodium Date Value Ref Range Status 08/12/2024 141 135 - 145 mmol/L Final Potassium Date Value Ref Range Status 08/12/2024 4.5 3.5 - 5.0 mmol/L Final Chloride Date Value Ref Range Status 08/12/2024 104 98 - 108 mmol/L Final CO2 Date Value Ref Range Status 08/12/2024 27 21 - 31 mmol/L Final BUN Date Value Ref Range Status 08/12/2024 56 (H) 7 - 25 mg/dL Final Creatinine Date Value Ref Range Status 08/12/2024 1.36 (H) 0.50 - 1.20 mg/dL Final Magnesium Date Value Ref Range Status 08/12/2024 2.2 1.6 - 2.6 mg/dL Final Phosphorous Date Value Ref Range Status 08/05/2024 3.2 2.2 - 4.6 mg/dL Final Albumin Date Value Ref Range Status 08/02/2024 3.5 3.5 - 5.0 g/dL Final Glucose (POC Device) Date Value Ref Range Status 08/12/2024 160 Nonfasting Glucose: 70-179 mg/dL Final Hemoglobin A1C HPLC Date Value Ref Range Status 08/02/2024 7.8 (H) 4.7 - 5.6 % Final WBC/Hgb/Hct/Plts: 14.32/14.3/45.1/241 (08/12 342) Lab Results Component Value Date GLUCOSE 160 08/12/2024 GLUCOSE 126 08/12/2024 GLUCOSE 107 08/12/2024 GLUCOSE 213 (H) 08/11/2024 GLUCOSE 255 (H) 08/11/2024 GLUCOSE 205 (H) 08/11/2024 Lab Results Component Value Date HGBA1C 7.8 (H) 08/02/2024 GI: Last bm: 08/11 (Type 7-- watery) Enteral access: PEG Skin: Raghu Score: 15 Edema- none documented Active Wounds: Wound Sheath Site 08/02/24 1500 Right Radial (10) Wound Abrasion 08/02/24 2109 Left;Upper Face (10) Respiratory: Oxygen therapy: room air I/O: +4.6L net since admit Cognitive Status: orientation WDL; garbled speech Estimated Nutrition Needs: Weight Used: 61 kg (IBW) EEN: 4415-3838 kcal/day (25-30 kcal/kg) EPN: 73-92 g/day (1.2-1.5 g/kg) EFN: 1830 mL/day (30 mL/kg) or per primary team Malnutrition Statement: Does the patient meet criteria for malnutrition: No *Based on [employer] and [employer] Indicators to Diagnose Malnutrition (AAIM) criteria (2012) Tianna Murray RD, LD, [facility] Pager #[phone] * Katie Ramos, PT - 08/12/2024 10:22 AM EDT Acute Physical Therapy Treatment Prior Gross Functional Mobility: independent Current AM-PAC score(s): CURRENT AM-PAC Mobility Raw Score: 7 Based on the above AM-PAC score(s) and PT clinical judgment, patient is a good candidate for discharge to Inpatient Rehab Facility Supporting Factors (would benefit from skilled therapy services): Patient status is anticipated to be appropriate to tolerate inpatient rehab therapy requirements at time of discharge from acute care, Decreased endurance necessitating skilled therapy services, but able to tolerate therapy requiremen ts for inpatient rehab, Assistance needed with functional mobility Mobility equipment available at home: rollator, straight cane ADL equipment available at home: shower chair Equipment needed for discharge: to be determined Current therapy frequency recommendation in acute: PT Therapy Frequency: 5 times a week Activity Recommendations for outside of rehab session: radha lift Precautions and Weightbearing Status: Existing Precautions/Restrictions: fall Telemetry, Urinary catheter, Tube feed Patient Safety Communication Prior to Visit: Nursing Subjective: Pt agreed to PT Pain: General Pain Documentation (Adult, OB, Peds) Presence of Pain: denies pain/discomfort Presence of Pain Score (Auto-calculated): 0 Objective/Observation: Vitals/Vitals Responses to Treatment: no adverse response to PT O2 Device: room air Cognition Overall Cognitive Status: Impaired Arousal/Alertness: Delayed responses to stimuli Orientation Level: Oriented to person Following Commands: Follows one step commands with increased time, Follows one step commands with repetition Safety Judgment: Decreased awareness of need for safety, Decreased awareness of need for assistance Awareness of Errors: Assistance required to identify errors made, Assistance required to correct errors made Deficits: Decreased awareness of deficits Extremity Assessments: See PT Evaluation flowsheet for Extremity Measurement updates. Skin and Edema: Balance: Sitting Balance Static Sitting-Level of Assistance: (CGA to mod A) Skilled Rationale: Verbal cues, Tactile cues, Hand placement, Technique of activity, Full extensionto upright positioning/posture, Finding/maintaining midline positioning Sitting Balance Skilled Intervention/Details: Static sitting balance with posterior lean with CGA to min A with one occurance of LOB that require mod A to correct. PT provided verbal/tactile cues forinstruction on upright posture and correction of lean. Standing Balance Static Standing-Level of Assistance: Maximum assistance, 2-person assist Standing-Balance Support: Gait belt Skilled Rationale: Verbal cues, Tactile cues, Hand placement, Technique of activity, Full extensionto upright positioning/posture, Finding/maintaining midline positioning Standing Balance Skilled Intervention/Details: Static standing at sink with mirror for visual feedback. Verbal/tactile cues for upright posture and midline trunk position. Pt with left lean in standing. Mobility Assessment/Intervention: Supine to Sit Mobility [place] Level: Supine->Sit: moderate assist (50% patient effort) Physical Assist: Supine->Sit: 2 person assist Bed Features/Set-up: Supine->Sit: Head of bed elevated Skilled Rationale: Verbal cues, Tactile cues, Hand placement, Technique of activity Skilled Intervention/Details: Supine->Sit: verbal/tactile cues for instruction on transfer technique and mod A x 2 for LE and trunk management. Transfer Assessment/Intervention: Sit to Stand Transfer [place] Level: Sit->Stand: maximum assist (25% patient effort) Physical Assist: Sit->Stand: 2 person assist Assistive Device: Sit->Stand: gait belt Skilled Rationale: Verbal cues, Tactile cues, Hand placement, Technique of activity Skilled Intervention/Details: Sit->Stand: x2 trials with verbal/tactile cues for instruction on transfer technique, hand placement, and blocking left knee. Bed-Chair Transfer [place] Level: Bed<->Chair: maximum assist (25% patient effort) Physical Assist: Bed<->Chair: 2 person assist Assistive Device: Bed<->Chair: gait belt Skilled Rationale: Verbal cues, Tactile cues, Hand placement, Technique of activity Skilled Intervention/Details: Bed<->Chair: x1 trial from EOB to chair to the right. Verbal/tactile cues for instruction on transfer technqiue, blocking left knee. Outcome Score(s): CURRENT AM-PAC Basic Mobility Inpatient Short Form Turning over in bed: 2 - A Lot of Assistance Moving from lying on back to sittin - Total Assistance Moving to and from bed to chair: 1 - Total Assistance Sitting/standing from chair: 1 - Total Assistance Walk in hospital room: 1 - Total Assistance Climbing 3-5 steps with a railin - Total Assistance CURRENT [facility] Mobility Raw Score: 7 CURRENT [facility] Mobility Functional Limitation: 92.36% Impaired in Basic Mobility Interventions: Intervention 1 Intervention Name: NMR LLE therapeutic exercises to promote LE strengthening required for functional mobility Sets/Reps/Duration: 1 set x 5 repetitions Details: active assistive ROM: LAQ, hip adduction, knee flexion. Verbal/tactile cues for instruction on exercise technique and faciliation of muscle activation. Assessment & Plan: Pt tolerated PT session well with focus on sitting balance, sit to/from stand transfers, standing balance, stand pivot transfers, LE strengthening, and supine to sit transfer . Pt would benefit from continued PT services to address deficits/impairments including: decreased strength, decreased balance, decreased functional endurance, and impaired bed mobility in order to progress I with functionalmobility. Patient Instruction/Education this session: Learners: Patient Education provided: Plan of care Plan for next session: progress transfers, balance Acute PT Goals Plan of Care by Katie Ramos PT at 08/12/2024 2:23 PM Version 1 of 1 Problem: PT - General Goals Goal: Supine <-> Sit Transfers - Patient will perform supine to/from sit transfers with contact guard assistance and with use of hospital bed features in order to improve functional mobility and safety. Outcome: Progressing Goal: Sit <-> Stand Transfers - Patient will perform sit to/from stand transfers with minimalassistance and least restrictive device in order to improve functional mobility and safety. Outcome: Progressing Goal: Standing Endurance/Balance - Patient will perform standing balance tasks for 5 min with minimal assistance and least restrictive device Outcome: Progressing Goal: Stand/Squat Pivot Transfers - Patient will perform stand pivot transfer to/from bed/chair/commode with minimal assistance and least restrictive device in order to improve functional mobility and safety. Outcome: Progressing PT treatment consisted of the following to progress towards the above goal(s): PT Evaluation and Treatment Time Therapeutic Activity Time Entry: 14 Neuromuscular Re-Education Time Entry: 10 Treating Therapist: Katie Ramos PT Additional Details: PT Co-Eval/Treatment Information Co-evaluation/co-treatment performed?: Yes, simultaneous billable skilled care was necessary due tomedical complexity and functional deficits Other discipline: OT Rationale for need to co-eval/treat: postural control Co-treatment goal focus: balance, mobility, transfer PPE used during patient interaction: gloves Patient location at end of session: chair Alarms on at end of session: chair alarm, RN aware Needs in reach. Time In: 1022 Time Out: 1046 Total Visit Time: 24 minutes Total Treatment Time (skilled, billable minutes): 24 minutes Upon discontinuation of Acute Care Physical Therapy Services or patient discharge from the hospitalthis note represents the current Physical Therapy Discharge Summary. * Radha Gr, INFANT LEAD TEACHER-WOODEN BARREL MECHANIC - 08/11/2024 7:15 AM EDT NEUROVASCULAR STROKE SERVICE Daily Progress Note IDENTIFYING INFORMATION Lindsay Acuna MR# [id number] 08/11/2024 HISTORY OF PRESENT ILLNESS Lindsay Acuna is a 78 y.o. female with PMH significant for CAD, HTN, HLD, T2DM, Afib (on Eliquis, although patient reports she has not been taking it) who presents with L hemiplegia, slurred speech. LKW 0915 on 08/02, later found down with slurred speech and L hemiplegia. She presented to [facility] and was seen on Telestroke, NIHSS 12. CTH showed no acute hemorrhage or large territory stroke. CTA with mid R M1 occlusion. She was not given IV TNK due to unclear last dose of Eliquis ( unsure of last dose). She was transferred to [facility] for further management. NIHSS 14 on arrival. Patient reports she does not remember the last time she took her Eliquis. At baseline patient is independent and still drives, mRS 0. Neurosurgery was consulted and patient was taken for mechanical thrombectomy with TICI 2b revascularization. INTERVAL HISTORY 08/05: Transfer to [place]. MBS tomorrow 08/06: Failed MBS. Increased lopressor. Spouse updated at bedside. 08/07: Discussed PEG with spouse at bedside 08/08: GI consult placed for PEG. More drowsy this AM, repeat CTH and UA ordered. HTN overnight, addlisinopril 08/09: PEG placement today, start ceftriaxone for UTI, repeat CTH stable 08/10: Urine culture back, restart tube feeds via PEG 08/11: Stop ASA, start Eliquis (home dose), give mag , NPO at [place] for FABIAN PHYSICAL EXAM Gen: awake, alert HEENT: normocephalic, no scalp lesions or tenderness Neck: trachea midline CV: +S1S2, RRR, no m/r/g Lungs: Respirations unlabored with equal chest rise Abd: soft, nontender, nondistended, +BS x4 quadrants Extrem: Warm and well perfused, no edema, 2+ pulses bilaterally Neuro: Oriented to name and age, KEITA x 4 with L hemiparesis, sensation intact and equal bilaterallyto light touch, dysarthria CN II - All visual richards intact CN II/III - PERRL CN III/IV/ - EOMI CN V - Light touch to face intact in V1-3 CN VII - Facial movement intact and symmetrical bilaterally CN VIII - Hearing intact CN X - Cough present CN XI - muscular movement of shoulders and sternocleidomastoid muscles intact and equal bilaterally CN XII - midline protrusion of tongue MOTOR EXAMINATION: L hemiparesis, LUE ataxia NIHSS 08/11/2024 Provider NIH Stroke Scale NIH Interval (Provider): daily NIH Level of Conciousness (Provider): 1 NIH LOC Questions (Provider): 1 NIH LOC Commands (Provider): 0 NIH Best Gaze (Provider): 0 NIH Visual (Provider): 0 NIH Facial Palsy (Provider): 0 NIH Left Arm Motor (Provider): 1 NIH Right Arm Motor (Provider): 0 NIH Left Leg Motor (Provider): 1 NIH Right Leg Motor (Provider): 0 NIH Limb Ataxia (Provider): 1 NIH Sensory (Provider): 0 NIH Best Language (Provider): 0 NIH Dysarthria (Provider): 1 NIH Extinction and Inattention (Provider): 0 NIH Total Score (Provider): 6 ASSESSMENT AND PLAN Neuro: Acute R MCA stroke 2/2 R M1 occlusion s/p TICI 2b revascularization with hemorrhagic conversion, Acute R cerebellar stroke OSH CTH: no hemorrhage or large territory stroke OSH CTA brain/neck: R M1 occlusion CTH 08/03: Acute right basal ganglia hemorrhage with surrounding mass effect and midline shift Repeat CTH 08/08: No significant interval change, evolving changes of right basal ganglia infarct and petechial hemorrhage with stable mass effect and midline shift. MRI brain: Hemorrhagic infarct involving the right basal ganglia with surrounding edema. Mass effect with effacement of the right lateral ventricle and midline shift to the left. 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 TTE: EF 65-70% LDL 84 HgbA1c 7.8 -Stroke Etiology (TOAST Criteria): Cardioembolic, AFib not on AC -Antiplatelet plan: ASA 81 mg daily started 08/06 until AC resumed -AC plan: start 7 days post-stroke (08/09), initiated today 08/11 -Statin therapy: Atorvastatin 40 mg daily -Blood Pressure goal: <160 Ischemic Stroke Core Measures -NIHSS on admission 14 -Patient has been started on Mechanical (SCD's) and Pharmacological (SQ heparin/Lovenox) DVT prophylaxis. -Antiplatelet therapy has been initiated, ASA 81 mg daily. -Anticoagulation therapy was indicated for this patient, d/t AFib -Patients LDL 84 and HgbA1c 7.8 were checked and the patient will be discharged on Atorvastatin 40 mg daily. -Dysphagia screening ordered, and will be completed prior to patient receiving oral intake. -Stroke education booklet has been ordered and will be provided by the RN that includes both written and verbal education to the patient and family regarding ischemic strokes. We have reviewed the patient's personal modifiable risk factors including: HTN, HLD, DM as well as education on reducing these risk factors -Patient is being assessed for Rehab by PT/OT/Speech and PM&R if indicated. Other problems: Complexity. Hypothyroidism - Continue thyroid replacement. Any conditions listed below are present on admission unless otherwise specified. . Klebsiella UTI, susceptibilities p -start ceftriaxone 08/09, consider de-escalation tmw HTN, POA: -SBP goal <160 -PRN labetolol/hydralazine -Metoprolol increased to 50 mg BID 08/08; add lisinopril 10 mg daily Paroxysmal AFib, POA: -start home Eliquis today 08/11 -Rate controlled on metoprolol Dysphagia: -NETWORK SUPPORT ENGINEER following -NPO, DHT + TF -Failed MBS 08/06 -Patient and spouse agreeable to PEG if no improvement in the coming days 08/08; GI consult for PEG placement, 08/09-PEG placed 08/10-restart tube feeds via PEG HLD, POA: -Atorvastatin 40 mg daily CAD, POA: -ASA resumed 08/06 T2DM, POA: -SSI regular + accuchecks Recent root canal: started by outpatient dentist prior to admission -Continue PCN for 7 days (end date 08/07) -concern from outpt dentist that there be a tooth abscess, will obtain FABIAN Monday -P to rule out veg (Cxs neg here) CKD Stage 3A, POA: Baseline Cr 1.3 -Avoid nephrotoxins, monitor Hypothyroidism, POA: -Continue home levothyroxine 75 mcg daily Disposition: Lindsay Acuna will likely be discharged to [facility] when medically ready Radha Gr, INFANT LEAD TEACHER-WOODEN BARREL MECHANIC 08/11/2024 10:17 AM VITAL SIGNS Temp: [97.2 F (36.2 C)-98.1 F (36.7 C)] 97.9 F (36.6 C) Pulse (Heart Rate): [81-99] 94 Resp Rate: [16-20] 20 BP: (112-146)/(56-70) 137/70 O2 Sat (%): [93 %-97 %] 94 % Oxygen Therapy: Oxygen Therapy O2 Sat (%): 94 % O2 Device: room air Intake/Output: Intake/Output Summary (Last 24 hours) at 08/11/2024 1017 Last data filed at 08/11/2024 0830 Gross per 24 hour Intake 1355 ml Output 650 ml Net 705 ml LABS/CULTURES Lab Results Component Value Date WBC 11.76 (H) 08/11/2024 HGB 14.0 08/11/2024 HCT 43.2 08/11/2024 PLATELET 240 08/11/2024 MCV 92.1 08/11/2024 Lab Results Component Value Date SODIUM 138 08/11/2024 POTASSIUM 4.6 08/11/2024 CHLORIDE 103 08/11/2024 CO2 26 08/11/2024 BUN 53 (H) 08/11/2024 CREATSERUM 1.32 (H) 08/11/2024 GLUCOSE 205 (H) 08/11/2024 Lab Results Component Value Date CHOLESTEROL 141 08/02/2024 TRIG 96 08/02/2024 HDL 38 (L) 08/02/2024 LDLCALC 84 08/02/2024 Lab Results Component Value Date HGBA1C 7.8 (H) 08/02/2024 Lab Results Component Value Date ALBUMIN 3.5 08/02/2024 , No results found for: "CPK", "TROP" IMAGING/DIAGNOSTIC STUDIES CT HEAD WITHOUT CONTRAST Final Result IMPRESSION: 1. No significant interval change, evolving changes of right basal ganglia infarct and petechial hemorrhage with stable mass effect and midline shift. 2. No new or progressive intracranial hemorrhage. I personally viewed and interpreted these images and I have reviewed and approved this report. FLUORO MODIFIED BARIUM SWALLOW WITH SPEECH Final Result IMPRESSION: 1. Inconsistent silent and sensate aspiration of thin, mildly thick/nectar, and moderately thick/honey consistencies. 2. No penetration or aspiration with pudding consistency. For additional analysis of the fluoroscopic examination for specific therapeutic recommendations, please see the ferryboat ticket taker report of the speech pathologist. Examination performed by ARCADIO Nicole, under the direct supervision of Gerry Resendez M.D., who was immediately available on site during the examination. I personally viewed and interpreted these images and I have reviewed and approved this report. CARDIOGRAM Final Result CT HEAD WITHOUT CONTRAST Final Result IMPRESSION: Stable exam. ABDOMEN 1 VIEW PORTABLE Final Result IMPRESSION: Enteric tube terminates in the expected region of the proximal second portion of the duodenum. HEAD WITHOUT CONTRAST Final Result IMPRESSION: Acute right basal ganglia hemorrhage with surrounding mass effect and midline shift stable since the MRI from earlier today SPINE CERVICAL WITHOUT CONTRAST Final Result IMPRESSION: Grade 1 anterolistheses of C3 on [...] and approved this report. BRAIN WITHOUT CONTRAST Final Result IMPRESSION: Hemorrhagic infarct involving the right basal ganglia with surrounding edema. Mass effect with effacement of the right lateral ventricle and midline shift to the left. 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 ELBOW RIGHT 2 VIEWS Final Result IMPRESSION: No acute osseous abnormality. HUMERUS RIGHT 2+ VIEWS Final Result IMPRESSION: No acute osseous abnormality. WRIST RIGHT 3+ VIEWS Final Result IMPRESSION: No acute osseous abnormality. CHEST WITH CONTRAST VASCULAR TRAUMA Final Result IMPRESSION: No acute traumatic findings within the chest. I personally viewed and interpreted these images and I have reviewed and approved this report. ABDOMEN/PELVIS WITH CONTRAST VASCULAR TRAUMA Final Result IMPRESSION: 1. No acute traumatic findings within the abdomen or pelvis. Hepatic trauma grade: None. Spleen trauma grade: None. Kidney trauma grade: None. ORBITS WITHOUT CONTRAST Final Result IMPRESSION: Motion compromised exam limiting evaluation for subtle fractures. No displaced large fractures identified Partially residual visualization of right basal ganglia hyperdensity concerning for hemorrhage. SPINE CERVICAL WITHOUT CONTRAST Final Result IMPRESSION: Anterolisthesis of C4 over C5 without any underlying fractures or prevertebral soft tissue edema. Findings are likely chronic in nature. Degenerative changes as described above. No evidence of acute fractures identified FLUOROSCOPY OR (Results Pending) MEDICATIONS apixaban 2.5 mg Oral Q12H Atorvastatin 40 mg PEG Tube QHS cefTRIAXone 1 g Intravenous Q24H fluticasone 2 spray Nasal BID Insulin regular 9 Units Subcutaneous Q6H Insulin regular Subcutaneous Q6H Levothyroxine 75 mcg PEG Tube Daily Lisinopril 10 mg PEG Tube Daily Magnesium sulfate 1 g Intravenous Once Melatonin 3 mg PEG Tube QHS Metoprolol 50 mg PEG Tube Q12H Polyethylene glycol 17 g PEG Tube Q12H Senna 17.2 mg PEG Tube Q12H Water liquid (free water) 30 mL PEG Tube Q4H Cosigned by Felicity Castellano MD at 08/12/2024 10:46 AM EDT Associated attestation - Felicity Castellano MD - 08/12/2024 10:46 AM EDT Attending Note: I have reviewed and personally performed escobar components of the above interview and physical exam on08/11. My comments, based on my personal review of the history and my physical exam are as follows: Agree with history of present illness, past history, family health, personal and social history, review of systems, and review of general medical and neurological examinations as recorded by the SISAL OPERATOR repeated and confirmed. I have personally reviewed all available clinical data related to today's encounter, including but not limited to laboratory studies, radiology images and reports, and EKG/telemetry tracings. I have been fully involved in formulation of the above-documented assessment and recommendations. 78 yo w ho afib not on AC, presenting found down, CTA with RM1 occlusion, s/p thrombectomy. R basalganglia stroke complicated by hemorrhagic transformation (HT2). Pt was not on AC for unclear reasonbut apparently recently had a tooth infection although not clear if this led her to stop her AC. Restart AC today, hospital course also complicated by UTI. Pending FABIAN to eval for any vegetations that would require antibiotics as well and removal of tooth. Blood cx unremarkable. * Radha Gr, INFANT LEAD TEACHER-WOODEN BARREL MECHANIC - 08/10/2024 7:14 AM EDT NEUROVASCULAR STROKE SERVICE Daily Progress Note IDENTIFYING INFORMATION Lindsay Acuna MR# [id number] 08/10/2024 HISTORY OF PRESENT ILLNESS Lindsay Acuna is a 78 y.o. female with PMH significant for CAD, HTN, HLD, T2DM, Afib (on Eliquis, although patient reports she has not been taking it) who presents with L hemiplegia, slurred speech. LKW 0915 on 08/02, later found down with slurred speech and L hemiplegia. She presented to [facility] and was seen on Telestroke, NIHSS 12. CTH showed no acute hemorrhage or large territory stroke. CTA with mid R M1 occlusion. She was not given IV TNK due to unclear last dose of Eliquis ( unsure of last dose). She was transferred to [facility] for further management. NIHSS 14 on arrival. Patient reports she does not remember the last time she took her Eliquis. At baseline patient is independent and still drives, mRS 0. Neurosurgery was consulted and patient was taken for mechanical thrombectomy with TICI 2b revascularization. INTERVAL HISTORY 08/05: Transfer to [place] MBS tomorrow 08/06: Failed MBS. Increased lopressor. Spouse updated at bedside. 08/07: Discussed PEG with spouse at bedside 08/08: GI consult placed for PEG. More drowsy this AM, repeat CTH and UA ordered. HTN overnight, addlisinopril 08/09: PEG placement today, start ceftriaxone for UTI, repeat CTH stable 08/10: Urine culture back, restart tube feeds via PEG PHYSICAL EXAM Gen: awake, alert HEENT: normocephalic, no scalp lesions or tenderness Neck: trachea midline CV: +S1S2, RRR, no m/r/g Lungs: Respirations unlabored with equal chest rise Abd: soft, nontender, nondistended, +BS x4 quadrants Extrem: Warm and well perfused, no edema, 2+ pulses bilaterally Neuro: Oriented to name and age, KEITA x 4 with L hemiparesis, sensation intact and equal bilaterallyto light touch, dysarthria CN II - All visual richards intact CN II/III - PERRL CN III/IV/ - EOMI CN V - Light touch to face intact in V1-3 CN VII - Facial movement intact and symmetrical bilaterally CN VIII - Hearing intact CN X - Cough present CN XI - muscular movement of shoulders and sternocleidomastoid muscles intact and equal bilaterally CN XII - midline protrusion of tongue MOTOR EXAMINATION: L hemiparesis, LUE ataxia NIHSS 08/10/2024 Provider NIH Stroke Scale NIH Interval (Provider): daily NIH Level of Conciousness (Provider): 1 NIH LOC Questions (Provider): 1 NIH LOC Commands (Provider): 0 NIH Best Gaze (Provider): 0 NIH Visual (Provider): 0 NIH Facial Palsy (Provider): 0 NIH Left Arm Motor (Provider): 1 NIH Right Arm Motor (Provider): 0 NIH Left Leg Motor (Provider): 1 NIH Right Leg Motor (Provider): 0 NIH Limb Ataxia (Provider): 1 NIH Sensory (Provider): 0 NIH Best Language (Provider): 0 NIH Dysarthria (Provider): 1 NIH Extinction and Inattention (Provider): 0 NIH Total Score (Provider): 6 ASSESSMENT AND PLAN Neuro: Acute R MCA stroke 2/2 R M1 occlusion s/p TICI 2b revascularization with hemorrhagic conversion, Acute R cerebellar stroke OSH CTH: no hemorrhage or large territory stroke OSH CTA brain/neck: R M1 occlusion CTH 08/03: Acute right basal ganglia hemorrhage with surrounding mass effect and midline shift Repeat CTH 08/08: No significant interval change, evolving changes of right basal ganglia infarct and petechial hemorrhage with stable mass effect and midline shift. MRI brain: Hemorrhagic infarct involving the right basal ganglia with surrounding edema. Mass effect with effacement of the right lateral ventricle and midline shift to the left. 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 TTE: EF 65-70% LDL 84 HgbA1c 7.8 -Stroke Etiology (TOAST Criteria): Cardioembolic, AFib not on AC -Antiplatelet plan: ASA 81 mg daily started 08/06 until AC resumed -AC plan: start 7 days post-stroke (08/09) or pending dysphagia plan-has oozing at PEG tube site, will start tmw 08/11 -Statin therapy: Atorvastatin 40 mg daily -Blood Pressure goal: <160 Ischemic Stroke Core Measures -NIHSS on admission 14 -Patient has been started on Mechanical (SCD's) and Pharmacological (SQ heparin/Lovenox) DVT prophylaxis. -Antiplatelet therapy has been initiated, ASA 81 mg daily. -Anticoagulation therapy was indicated for this patient, d/t AFib -Patients LDL 84 and HgbA1c 7.8 were checked and the patient will be discharged on Atorvastatin 40 mg daily. -Dysphagia screening ordered, and will be completed prior to patient receiving oral intake. -Stroke education booklet has been ordered and will be provided by the RN that includes both written and verbal education to the patient and family regarding ischemic strokes. We have reviewed the patient's personal modifiable risk factors including: HTN, HLD, DM as well as education on reducing these risk factors -Patient is being assessed for Rehab by PT/OT/Speech and PM&R if indicated. Other problems: Complexity. Hypothyroidism - Continue thyroid replacement. Any conditions listed below are present on admission unless otherwise specified. . Klebsiella UTI, susceptibilities p -start ceftriaxone 08/09 HTN, POA: -SBP goal <160 -PRN labetolol/hydralazine -Metoprolol increased to 50 mg BID 08/08; add lisinopril 10 mg daily Paroxysmal AFib, POA: -AC plan as above -Rate controlled on metoprolol Dysphagia: -NETWORK SUPPORT ENGINEER following -NPO, DHT + TF -Failed MBS 08/06 -Patient and spouse agreeable to PEG if no improvement in the coming days 08/08; GI consult for PEG placement, PEG placed today-some oozing at site, will monitor 08/09-restart tube feeds via PEG HLD, POA: -Atorvastatin 40 mg daily CAD, POA: -ASA resumed 08/06 T2DM, POA: -SSI regular + accuchecks Recent root canal: started by outpatient dentist prior to admission -Continue PCN for 7 days (end date 08/07) -concern from outpt dentist that there be a tooth abscess, FABIAN Monday -P CKD Stage 3A, POA: Baseline Cr 1.3 -Avoid nephrotoxins, monitor Hypothyroidism, POA: -Continue home levothyroxine 75 mcg daily Disposition: Lindsay Acuna will likely be discharged to [facility] when medically ready Radha Gr APRN-WOODEN BARREL MECHANIC 08/10/2024 7:14 AM VITAL SIGNS Temp: [97.4 F (36.3 C)-98.1 F (36.7 C)] 97.4 F (36.3 C) Pulse (Heart Rate): [76-113] 80 Resp Rate: [16-22] 22 BP: (92-199)/(52-123) 111/73 O2 Sat (%): [90 %-97 %] 97 % Oxygen Therapy: Oxygen Therapy O2 Sat (%): 97 % O2 Device: room air Flow (L/min): 2 Intake/Output: Intake/Output Summary (Last 24 hours) at 08/10/2024 0714 Last data filed at 08/10/2024 0443 Gross per 24 hour Intake 936.47 ml Output 650 ml Net 286.47 ml LABS/CULTURES Lab Results Component Value Date WBC 13.78 (H) 08/10/2024 HGB 14.1 08/10/2024 HCT 45.1 (H) 08/10/2024 PLATELET 216 08/10/2024 MCV 93.0 08/10/2024 Lab Results Component Value Date SODIUM 138 08/10/2024 POTASSIUM 4.9 08/10/2024 CHLORIDE 103 08/10/2024 CO2 24 08/10/2024 BUN 47 (H) 08/10/2024 CREATSERUM 1.36 (H) 08/10/2024 GLUCOSE 193 (H) 08/10/2024 Lab Results Component Value Date CHOLESTEROL 141 08/02/2024 TRIG 96 08/02/2024 HDL 38 (L) 08/02/2024 LDLCALC 84 08/02/2024 Lab Results Component Value Date HGBA1C 7.8 (H) 08/02/2024 Lab Results Component Value Date ALBUMIN 3.5 08/02/2024 , No results found for: "CPK", "TROP" IMAGING/DIAGNOSTIC STUDIES CT HEAD WITHOUT CONTRAST Final Result IMPRESSION: 1. No significant interval change, evolving changes of right basal ganglia infarct and petechial hemorrhage with stable mass effect and midline shift. 2. No new or progressive intracranial hemorrhage. I personally viewed and interpreted these images and I have reviewed and approved this report. FLUORO MODIFIED BARIUM SWALLOW WITH SPEECH Final Result IMPRESSION: 1. Inconsistent silent and sensate aspiration of thin, mildly thick/nectar, and moderately thick/honey consistencies. 2. No penetration or aspiration with pudding consistency. For additional analysis of the fluoroscopic examination for specific therapeutic recommendations, please see the ferryboat ticket taker report of the speech pathologist. Examination performed by ARCADIO Nicole, under the direct supervision of Gerry Resendez M.D., who was immediately available on site during the examination. I personally viewed and interpreted these images and I have reviewed and approved this report. CARDIOGRAM Final Result CT HEAD WITHOUT CONTRAST Final Result IMPRESSION: Stable exam. ABDOMEN 1 VIEW PORTABLE Final Result IMPRESSION: Enteric tube terminates in the expected region of the proximal second portion of the duodenum. HEAD WITHOUT CONTRAST Final Result IMPRESSION: Acute right basal ganglia hemorrhage with surrounding mass effect and midline shift stable since the MRI from earlier today SPINE CERVICAL WITHOUT CONTRAST Final Result IMPRESSION: Grade 1 anterolistheses of C3 on [...] and approved this report. BRAIN WITHOUT CONTRAST Final Result IMPRESSION: Hemorrhagic infarct involving the right basal ganglia with surrounding edema. Mass effect with effacement of the right lateral ventricle and midline shift to the left. 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 ELBOW RIGHT 2 VIEWS Final Result IMPRESSION: No acute osseous abnormality. HUMERUS RIGHT 2+ VIEWS Final Result IMPRESSION: No acute osseous abnormality. WRIST RIGHT 3+ VIEWS Final Result IMPRESSION: No acute osseous abnormality. CHEST WITH CONTRAST VASCULAR TRAUMA Final Result IMPRESSION: No acute traumatic findings within the chest. I personally viewed and interpreted these images and I have reviewed and approved this report. ABDOMEN/PELVIS WITH CONTRAST VASCULAR TRAUMA Final Result IMPRESSION: 1. No acute traumatic findings within the abdomen or pelvis. Hepatic trauma grade: None. Spleen trauma grade: None. Kidney trauma grade: None. ORBITS WITHOUT CONTRAST Final Result IMPRESSION: Motion compromised exam limiting evaluation for subtle fractures. No displaced large fractures identified Partially residual visualization of right basal ganglia hyperdensity concerning for hemorrhage. SPINE CERVICAL WITHOUT CONTRAST Final Result IMPRESSION: Anterolisthesis of C4 over C5 without any underlying fractures or prevertebral soft tissue edema. Findings are likely chronic in nature. Degenerative changes as described above. No evidence of acute fractures identified FLUOROSCOPY OR (Results Pending) MEDICATIONS aspirin 81 mg PEG Tube Daily Atorvastatin 40 mg PEG Tube QHS cefTRIAXone 1 g Intravenous Q24H [Transfer Hold] heparin 5,000 Units Subcutaneous Q8H 0800/1600/2200 Insulin regular 9 Units Subcutaneous Q6H Insulin regular Subcutaneous Q6H Levothyroxine 75 mcg PEG Tube Daily Lisinopril 10 mg PEG Tube Daily Melatonin 3 mg PEG Tube QHS Metoprolol 50 mg PEG Tube Q12H Polyethylene glycol 17 g PEG Tube Q12H Senna 17.2 mg PEG Tube Q12H Water liquid (free water) 30 mL PEG Tube Q4H Cosigned by Felicity Castellano MD at 08/12/2024 10:46 AM EDT * Neeraj Lopez MD - 08/10/2024 3:17 AM EDT GASTROENTEROLOGY PROGRESS NOTE Lindsay Acuna is a 78 y.o. female with PMH CAD, HTN, HLD, T2DM, Afib (prev on Eliquis) who presents with L hemiplegia, slurred speech, found to have R M1 occlusion, s/p mechanical thrombectomy. GI is consulted for PEG eval. Now s/p PEG placement 08/09 and EGD findings of nonbleeding gastric ulcer and erosive gastropathy Subjective/Interval Events: Denies abdominal pain, feeling well today. No issues with tube feeds. Impression: - LA Grade B reflux esophagitis with no bleeding. - Z-line regular, 43 cm from the incisors. - Non-bleeding gastric ulcer with no stigmata of bleeding. - Erosive gastropathy with no bleeding and no stigmata of recent bleeding. Biopsied. - Non-bleeding duodenal ulcers with no stigmata of bleeding. - An externally removable PEG placement was successfully completed. Objective: Temp: [97.4 F (36.3 C)-98.1 F (36.7 C)] 97.4 F (36.3 C) Pulse (Heart Rate): [76-113] 79 Resp Rate: [16-22] 16 BP: (92-199)/(52-123) 120/63 O2 Sat (%): [90 %-96 %] 96 % Wt Readings from Last 3 Encounters: 08/05/24 78 kg (172 lb) General: awake, alert HEENT: No scleral icterus, Neck: supple without lymphadenopathy Cardiovascular: No pedal edema, no JVD Pulmonary: Symmetric chest rise, breathing comfortably on rmair Abdomen: Soft, nontender, nondistended. PEG in place freely rotates no erythema or bleeding. Extremities: Warm and well perfused Skin: Warm, dry, no rashes Neurological: Alert and oriented x3, L hemiparesis. ROS 10-point ROS negative unless otherwise noted in HPI. Review of Systems Medications: aspirin 81 mg PEG Tube Daily Atorvastatin 40 mg PEG Tube QHS cefTRIAXone 1 g Intravenous Q24H [Transfer Hold] heparin 5,000 Units Subcutaneous Q8H 0800/1600/2200 Insulin regular 9 Units Subcutaneous Q6H Insulin regular Subcutaneous Q6H Levothyroxine 75 mcg PEG Tube Daily Lisinopril 10 mg PEG Tube Daily Melatonin 3 mg PEG Tube QHS Metoprolol 50 mg PEG Tube Q12H Polyethylene glycol 17 g PEG Tube Q12H Senna 17.2 mg PEG Tube Q12H Water liquid (free water) 30 mL PEG Tube Q4H Labs: All relevant labs were reviewed. WBC/Hgb/Hct/Plts: 13.78/14.1/45.1/216 (08/10 45) Bun/Creat/Cl/CO2/Glucose: 47/1.36/103/24/186 (08/10 45) Na/K+/Phos/Mg/Ca: 138/4.9/--/1.8/-- (08/10 45) Lab Results Component Value Date ALT 10 08/02/2024 AST 17 08/02/2024 ALKPHOS 117 08/02/2024 BILITOTAL 0.6 08/02/2024 BILIDIRECT 0.1 08/02/2024 INR 1.0 08/09/2024 Imaging: All relevant imaging and procedures were reviewed. ASSESSMENT AND PLAN: Lindsay Acuna is a 78 y.o. female with PMH CAD, HTN, HLD, T2DM, Afib (prev on Eliquis) who presents with L hemiplegia, slurred speech, found to have R M1 occlusion, s/p mechanical thrombectomy. GI is consulted for PEG eval. Patient failed MBS 08/06 with inconsistent silent and since the aspiration of thin, mildly thick thick/nectar. The team, PEG was discussed with spouse at bedside 08/07. Patient also expresses amenability to PEG. Now s/p PEG placement 08/09 and EGD findings of nonbleeding gastric ulcer and erosive gastropathy IMPRESSION # Neurogenic Dysphagia # CVA # Tube feed dependence ASSESSMENT/RECOMMENDATIONS: S/p PEG placement 08/09 doing well post-PEG. Tolerating Tfs, no pain. BID PPI (high dose, 40mg ) x 8 weeks followed by daily thereafter Post PEG Final PEG recs: - Keep PEG tube to straight drain for 24 hours. - You may use the PEG tube for medications and keep clamped for 1-2 hours after giving the medication. - Do not place gauze or other dressings between skin and external bumper. - If used group home, PEG should be changed every 3-6 months depending on tube condition. GI will sign off. Please do not hesitate to reach out to GI team with any additional questions or concerns. No need for outpatient GI clinic follow-up. This case was discussed with Dr. Koch, the attending physician. If you have any questions or need any further information, please feel free to contact our consult team. Thank you for this consult and allowing us to participate in the care of Lindsay Acuna! Primary team notified of the above recommendations. Neeraj Lopez MD Division of Gastroenterology, Hepatology, and Nutrition Clinical Fellow PGY-4 Pager: [phone] For follow up questions regarding this patient 7am to 5pm, contact the IBD consults fellow or DAHLIA on [employer]. [facility]--> Internal Medicine--> Gastroenterology, Hepatology, & Nutrition--> IBD Consult Service Fel Day OR IBD Consult Service DAHLIA Day For urgent/stat calls or new consults 5pm to 7am or all day on the weekend, please page the on-callGI fellow on [email or web address]. [facility]--> Internal Medicine--> Gastroenterology, Hepatology, & Nutrition--> 1st Call Fel Miriam OR STAT/NEW GI Cons Wknd Fel Day Cosigned by Niru Koch MD at 08/10/2024 2:11 PM EDT * OWEN Benavides - 08/09/2024 3:34 PM EDT Placement Plan Expected Discharge Date: Referred Level of Care: IPR Barriers: Medical Readiness and Precertification Current Referrals and Status 1. Tyler Garcia IPR-accepted IPR will start precertification on Monday after updated therapy notes are in. For Case Management assistance for the weekend, please contact for assistance as needed (8:00am-4:30pm) BAS: [phone] Maria: [phone] Johan: [phone] Ross: [phone] For Social Work assistance for the weekend, please contact SW for assistance as needed (8:00am - 4:30pm): BASH: [phone] Maria: [phone] Johan: [phone] Ross: [phone] * Radha Gr, JASIEL-[employer] BAR[employer] MECHANIC - 08/09/2024 8:07 AM EDT NEUROVASCULAR STROKE SERVICE Daily Progress Note IDENTIFYING INFORMATION Lindsay Acuna MR# [id number] 08/09/2024 HISTORY OF PRESENT ILLNESS Lindsay Acuna is a 78 y.o. female with PMH significant for CAD, HTN, HLD, T2DM, Afib (on Eliquis, although patient reports she has not been taking it) who presents with L hemiplegia, slurred speech. LKW 0915 on 08/02, later found down with slurred speech and L hemiplegia. She presented to [facility] and was seen on Telestroke, NIHSS 12. CTH showed no acute hemorrhage or large territory stroke. CTA with mid R M1 occlusion. She was not given IV TNK due to unclear last dose of Eliquis ( unsure of last dose). She was transferred to [facility] for further management. NIHSS 14 on arrival. Patient reports she does not remember the last time she took her Eliquis. At baseline patient is independent and still drives, mRS 0. Neurosurgery was consulted and patient was taken for mechanical thrombectomy with TICI 2b revascularization. INTERVAL HISTORY 08/05: Transfer to [place]. MBS tomorrow 08/06: Failed MBS. Increased lopressor. Spouse updated at bedside. 08/07: Discussed PEG with spouse at bedside 08/08: GI consult placed for PEG. More drowsy this AM, repeat CTH and UA ordered. HTN overnight, addlisinopril 08/09: PEG placement today, start ceftriaxone for UTI, repeat CTH stable PHYSICAL EXAM Gen: awake, alert HEENT: normocephalic, no scalp lesions or tenderness Neck: trachea midline CV: +S1S2, RRR, no m/r/g Lungs: Respirations unlabored with equal chest rise Abd: soft, nontender, nondistended, +BS x4 quadrants Extrem: Warm and well perfused, no edema, 2+ pulses bilaterally Neuro: Oriented to name and age, KEITA x 4 with L hemiparesis, sensation intact and equal bilaterallyto light touch, dysarthria CN II - All visual richards intact CN II/III - PERRL CN III/IV/ - EOMI CN V - Light touch to face intact in V1-3 CN VII - Facial movement intact and symmetrical bilaterally CN VIII - Hearing intact CN X - Cough present CN XI - muscular movement of shoulders and sternocleidomastoid muscles intact and equal bilaterally CN XII - midline protrusion of tongue MOTOR EXAMINATION: L hemiparesis, LUE ataxia NIHSS 08/09/2024 Provider NIH Stroke Scale NIH Interval (Provider): daily NIH Level of Conciousness (Provider): 1 NIH LOC Questions (Provider): 1 NIH LOC Commands (Provider): 0 NIH Best Gaze (Provider): 0 NIH Visual (Provider): 0 NIH Facial Palsy (Provider): 0 NIH Left Arm Motor (Provider): 1 NIH Right Arm Motor (Provider): 0 NIH Left Leg Motor (Provider): 1 NIH Right Leg Motor (Provider): 0 NIH Limb Ataxia (Provider): 1 NIH Sensory (Provider): 0 NIH Best Language (Provider): 0 NIH Dysarthria (Provider): 1 NIH Extinction and Inattention (Provider): 0 NIH Total Score (Provider): 6 ASSESSMENT AND PLAN Neuro: Acute R MCA stroke 2/2 R M1 occlusion s/p TICI 2b revascularization with hemorrhagic conversion, Acute R cerebellar stroke OSH CTH: no hemorrhage or large territory stroke OSH CTA brain/neck: R M1 occlusion CTH 08/03: Acute right basal ganglia hemorrhage with surrounding mass effect and midline shift Repeat CTH 08/08: No significant interval change, evolving changes of right basal ganglia infarct and petechial hemorrhage with stable mass effect and midline shift. MRI brain: Hemorrhagic infarct involving the right basal ganglia with surrounding edema. Mass effect with effacement of the right lateral ventricle and midline shift to the left. 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 TTE: EF 65-70% LDL 84 HgbA1c 7.8 -Stroke Etiology (TOAST Criteria): Cardioembolic, AFib not on AC -Antiplatelet plan: ASA 81 mg daily started 08/06 until AC resumed -AC plan: start 7 days post-stroke (08/09) or pending dysphagia plan-discuss and will likely start tmw if PEG stable -Statin therapy: Atorvastatin 40 mg daily -Blood Pressure goal: <160 Ischemic Stroke Core Measures -NIHSS on admission 14 -Patient has been started on Mechanical (SCD's) and Pharmacological (SQ heparin/Lovenox) DVT prophylaxis. -Antiplatelet therapy has been initiated, ASA 81 mg daily. -Anticoagulation therapy was indicated for this patient, d/t AFib -Patients LDL 84 and HgbA1c 7.8 were checked and the patient will be discharged on Atorvastatin 40 mg daily. -Dysphagia screening ordered, and will be completed prior to patient receiving oral intake. -Stroke education booklet has been ordered and will be provided by the RN that includes both written and verbal education to the patient and family regarding ischemic strokes. We have reviewed the patient's personal modifiable risk factors including: HTN, HLD, DM as well as education on reducing these risk factors -Patient is being assessed for Rehab by PT/OT/Speech and PM&R if indicated. Other problems: Complexity. Hypothyroidism - Continue thyroid replacement. Any conditions listed below are present on admission unless otherwise specified. . UTI, Cx P -start ceftriaxone 08/09 HTN, POA: -SBP goal <160 -PRN labetolol/hydralazine -Metoprolol increased to 50 mg BID 08/08; add lisinopril 10 mg daily Paroxysmal AFib, POA: -AC plan as above -Rate controlled on metoprolol Dysphagia: -NETWORK SUPPORT ENGINEER following -NPO, DHT + TF -Failed MBS 08/06 -Patient and spouse agreeable to PEG if no improvement in the coming days 08/08; GI consult for PEG placement, PEG placed today-some oozing at site, will monitor HLD, POA: -Atorvastatin 40 mg daily CAD, POA: -ASA resumed 08/06 T2DM, POA: -SSI regular + accuchecks Recent root canal: started by outpatient dentist prior to admission -Continue PCN for 7 days (end date 08/07) -concern from outpt dentist that there be a tooth abscess, FABIAN Monday -P CKD Stage 3A, POA: Baseline Cr 1.3 -Avoid nephrotoxins, monitor Hypothyroidism, POA: -Continue home levothyroxine 75 mcg daily Disposition: Lindsay Acuna will likely be discharged to [facility] when medically ready Radha Gr, INFANT LEAD TEACHER-[employer] MECHANIC 08/09/2024 8:07 AM VITAL SIGNS Temp: [97.3 F (36.3 C)-98.1 F (36.7 C)] 98 F (36.7 C) Pulse (Heart Rate): [76-113] 105 Resp Rate: [11-24] 18 BP: (127-199)/(60-123) 150/69 O2 Sat (%): [95 %-99 %] 95 % Oxygen Therapy: Oxygen Therapy O2 Sat (%): 95 % O2 Device: room air Intake/Output: Intake/Output Summary (Last 24 hours) at 08/09/2024 0807 Last data filed at 08/09/2024 0757 Gross per 24 hour Intake 1696.25 ml Output 900 ml Net 796.25 ml LABS/CULTURES Lab Results Component Value Date WBC 12.37 (H) 08/09/2024 HGB 14.1 08/09/2024 HCT 44.4 (H) 08/09/2024 PLATELET 226 08/09/2024 MCV 92.7 08/09/2024 Lab Results Component Value Date SODIUM 138 08/09/2024 POTASSIUM 4.9 08/09/2024 CHLORIDE 103 08/09/2024 CO2 26 08/09/2024 BUN 38 (H) 08/09/2024 CREATSERUM 1.35 (H) 08/09/2024 GLUCOSE 235 (H) 08/09/2024 Lab Results Component Value Date CHOLESTEROL 141 08/02/2024 TRIG 96 08/02/2024 HDL 38 (L) 08/02/2024 LDLCALC 84 08/02/2024 Lab Results Component Value Date HGBA1C 7.8 (H) 08/02/2024 Lab Results Component Value Date ALBUMIN 3.5 08/02/2024 , No results found for: "CPK", "TROP" IMAGING/DIAGNOSTIC STUDIES CT HEAD WITHOUT CONTRAST Final Result IMPRESSION: 1. No significant interval change, evolving changes of right basal ganglia infarct and petechial hemorrhage with stable mass effect and midline shift. 2. No new or progressive intracranial hemorrhage. I personally viewed and interpreted these images and I have reviewed and approved this report. FLUORO MODIFIED BARIUM SWALLOW WITH SPEECH Final Result IMPRESSION: 1. Inconsistent silent and sensate aspiration of thin, mildly thick/nectar, and moderately thick/honey consistencies. 2. No penetration or aspiration with pudding consistency. For additional analysis of the fluoroscopic examination for specific therapeutic recommendations, please see the ferryboat ticket taker report of the speech pathologist. Examination performed by ARCADIO Nicole, under the direct supervision of Gerry Resendez M.D., who was immediately available on site during the examination. I personally viewed and interpreted these images and I have reviewed and approved this report. CARDIOGRAM Final Result CT HEAD WITHOUT CONTRAST Final Result IMPRESSION: Stable exam. ABDOMEN 1 VIEW PORTABLE Final Result IMPRESSION: Enteric tube terminates in the expected region of the proximal second portion of the duodenum. HEAD WITHOUT CONTRAST Final Result IMPRESSION: Acute right basal ganglia hemorrhage with surrounding mass effect and midline shift stable since the MRI from earlier today SPINE CERVICAL WITHOUT CONTRAST Final Result IMPRESSION: Grade 1 anterolistheses of C3 on [...] and approved this report. BRAIN WITHOUT CONTRAST Final Result IMPRESSION: Hemorrhagic infarct involving the right basal ganglia with surrounding edema. Mass effect with effacement of the right lateral ventricle and midline shift to the left. 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 ELBOW RIGHT 2 VIEWS Final Result IMPRESSION: No acute osseous abnormality. HUMERUS RIGHT 2+ VIEWS Final Result IMPRESSION: No acute osseous abnormality. WRIST RIGHT 3+ VIEWS Final Result IMPRESSION: No acute osseous abnormality. CHEST WITH CONTRAST VASCULAR TRAUMA Final Result IMPRESSION: No acute traumatic findings within the chest. I personally viewed and interpreted these images and I have reviewed and approved this report. ABDOMEN/PELVIS WITH CONTRAST VASCULAR TRAUMA Final Result IMPRESSION: 1. No acute traumatic findings within the abdomen or pelvis. Hepatic trauma grade: None. Spleen trauma grade: None. Kidney trauma grade: None. ORBITS WITHOUT CONTRAST Final Result IMPRESSION: Motion compromised exam limiting evaluation for subtle fractures. No displaced large fractures identified Partially residual visualization of right basal ganglia hyperdensity concerning for hemorrhage. SPINE CERVICAL WITHOUT CONTRAST Final Result IMPRESSION: Anterolisthesis of C4 over C5 without any underlying fractures or prevertebral soft tissue edema. Findings are likely chronic in nature. Degenerative changes as described above. No evidence of acute fractures identified FLUOROSCOPY OR (Results Pending) MEDICATIONS aspirin 81 mg Per NG tube Daily Atorvastatin 40 mg Per NG tube QHS [Transfer Hold] heparin 5,000 Units Subcutaneous Q8H 0800/1600/2200 Insulin regular 9 Units Subcutaneous Q6H Insulin regular Subcutaneous Q6H Levothyroxine 75 mcg Per NG tube Daily Lisinopril 10 mg Per NG tube Daily Melatonin 3 mg Per NG tube QHS Metoprolol 50 mg Per NG tube Q12H Polyethylene glycol 17 g Per NG tube Q12H Senna 17.2 mg Per NG tube Q12H Water liquid (free water) 30 mL Per NG tube Q4H Cosigned by Felicity Castellano MD at 08/12/2024 10:46 AM EDT * RIKI Penaloza - 08/08/2024 1:10 PM EDT Acute Care Speech Language Pathology Treatment Diet Recommendations: Recommended Method of Nutrition: NPO, Short-term alternate nutrition Recommended Medication Administration (as appropriate per MD): Non-Oral Assistance: nurse/aide *Consider allowance of ice chips following oral care with direct RN supervision to improve oral comfort and reduce risk of disuse atrophy. Oral care has been proven in research to reduce risk of aspiration pneumonia. Discharge Recommendations: Based on the below outcome measures/assessment score(s) and NETWORK SUPPORT ENGINEER clinicaljudgment, discharge destination recommendation is: Inpatient Rehab Facility Acute NETWORK SUPPORT ENGINEER Outcomes Tracking Communicate basic wants and needs?: yes Demo insight/appreciation of deficits?: unable to determine Complete basic problem solving?: unable to determine Current therapy frequency recommendation in acute: Speech/Lang/Cog Therapy Frequency: 3 times a week Swallow Therapy Frequency: 5 times a week Clinical Impression: Lindsay Acuna presents with moderately severe oropharyngeal dysphagia (per OSEAS Level 2) per MBS on 08/06, s/p admission for 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 Session focused on education regarding MBS results/im pressions and introduction to effortful swallow exercise. NETWORK SUPPORT ENGINEER provided education regarding recommendation of NPO given nature of aspiration events on MBS, risks of aspiration pneumonia, and purpose of dysphagia rehabilitation. Discussed with and patient regarding option to repeat MBS later next week to further guide POC. Recommend NPO with AMN, allowance of ice chips following oral care. S LP will continue to follow. Unable to complete cognitive tx on today's date secondary to time constraints (transport arrived for pt's CT scan). NETWORK SUPPORT ENGINEER will follow as able. Subjective information: Patient upright in chair, at bedside. Agreeable to NETWORK SUPPORT ENGINEER session. Pain: General Pain Documentation (Adult, OB, Peds) Presence of Pain: denies pain/discomfort Presence of Pain Score (Auto-calculated): 0 DVPRS (Defense and Veterans Pain Rating Scale) DVPRS: Rest: 0- no pain DVPRS: Activity: 0- no pain Precautions: Patient Safety Communication Prior to Visit: Nursing Lines/Tubes/Drains (Rehab Status): Telemetry, Tube feed Existing Precautions/Restrictions: fall Respiratory Status: O2 Sat (%): [94 %-98 %] 98 % O2 Device: room air Flow (L/min): [3] 3 Acute NETWORK SUPPORT ENGINEER Goals Plan of Care by RIKI Penaloza at 08/08/2024 1:10 PM Version 1 of 1 Problem: Dysphagia Goal: Bolus challenge - Patient will accept trials of various liquids x10-12 trials, given moderatecues for use of strategies to improve bolus control/timing of swallow initiation with no signs of aspiration to determine readiness for repeat study Outcome: Ongoing Did not address on today's date secondary to time constraints (transport arrived for CT scan) and focus on education. Goal: Effortful Swallow Goal - Patient will complete repetitions of effortful swallow until reaching a self-reported level of fatigue (7/10 rating) to improve pharyngeal clearance and airway protection during the swallow Outcome: Ongoing Addressed pharyngeal contraction and airway protection with education regarding effortful swallows with ice chips. Patient and educated regarding emphasis of pressing lingual surface to roof of mouth. Trialed x1, unable to complete further trials int he setting of time constraints. Continuegoal. Goal: TORO- Patient will complete isometric exercises (5 repetitions with a 10- second interval between the sets for a maximum of 2 sets) to improve pharyngeal swallow given fading verbal cues for formand pacing over x3-5 sessions Outcome: Ongoing Did not address on today's date secondary to time constraints (transport arrived for CT scan) and focus on education. Patient Education/Instruction Learners: Patient, Spouse Education provided: Role of this discipline, Plan of care, Oral care/impact on aspiration pneumoniarisk factors, Dysphagia recommendations/impressions, Dysphagia risk factors Teaching method: Verbal Education/Instruction Learner response: States/Identifies/Teaches back Learning preferences: Auditory Learning considerations: Cognition Patient Instruction/Education comments: Educated pt and pt's regarding MBS impressions (sensate and silent aspiration events, physiologic deficits, normal swallow phsyiology, risks of aspiration pneumonia). Educated regarding NETWORK SUPPORT ENGINEER role in swallow rehab and future POC Plan for next session: 08/06: cog tx and dysphagia exercises NETWORK SUPPORT ENGINEER Outcomes: FOIS: 1 Speech Language Pathologist: RIKI Penaloza Time In: 1310 Time Out: 1330 Total Visit Time: 20 minutes Total Treatment Time (skilled, billable minutes): 20 minutes Non-billable assistance during session: NA Assisted by during session: NA PPE used during patient interaction: gloves Patient location/status at end of session: chair Patient alarms at end of session: none altered Needs in reach. NETWORK SUPPORT ENGINEER Evaluation and Treatment Time Swallowing Dysfunction Treatment [id number]: 20 Upon discontinuation of Acute Care Speech Therapy Services or patient discharge from the hospital this note represents the current Speech Therapy Discharge Summary * Florinda Velasquez PT - 08/08/2024 12:54 PM EDT Acute Physical Therapy Treatment Prior Gross Functional Mobility: independent Current AM-PAC score(s): CURRENT AM-PAC Mobility Raw Score: 8 Based on the above AM-PAC score(s) and PT clinical judgment, patient is a good candidate for discharge to Inpatient Rehab Facility Supporting Factors (would benefit from skilled therapy services): Patient status is anticipated to be appropriate to tolerate inpatient rehab therapy requirements at time of discharge from acute care, Decreased endurance necessitating skilled therapy services, but able to tolerate therapy requiremen ts for inpatient rehab, Assistance needed with functional mobility Mobility equipment available at home: rollator, straight cane ADL equipment available at home: shower chair Equipment needed for discharge: to be determined Current therapy frequency recommendation in acute: PT Therapy Frequency: 5 times a week Activity Recommendations for outside of rehab session: radha lift Precautions and Weightbearing Status: Existing Precautions/Restrictions: fall Patient Safety Communication Prior to Visit: Nursing Subjective: pt was agreeable to participate, pt frequently stating "I do not know my left from right" Pain: General Pain Documentation (Adult, OB, Peds) Presence of Pain: denies pain/discomfort Presence of Pain Score (Auto-calculated): 0 Objective/Observation: Vitals/Vitals Responses to Treatment: WFL O2 Device: room air Cognition Overall Cognitive Status: Impaired Arousal/Alertness: Delayed responses to stimuli Orientation Level: Oriented to person, Oriented to place Following Commands: Follows one step commands with repetition, Follows one step commands with increased time, Follows commands greater than 75% of the time Safety Judgment: Decreased awareness of need for assistance, Decreased awareness of need for safety Cognition Comments: delayed procressing Extremity Assessments: See PT Evaluation flowsheet for Extremity Measurement updates. Skin and Edema: Balance: Sitting Balance Static Sitting-Level of Assistance: (min/mod) Skilled Rationale: Positioning, Hand placement, Sequencing, Verbal cues, Full extension to upright positioning/posture, Finding/maintaining midline positioning Sitting Balance Skilled Intervention/Details: Pt completed EOB sitting with min to mod assist, cuesfor midline posture. Pt with anterior leaning and left lateral leaning requiring cues for midline. With improved positioning of UEs to promote midline posture patient able to maintain static sitting with contact guard assist briefly. pt completed EOB sitting x 12-14 minutes Standing Balance Static Standing-Level of Assistance: Moderate assistance, Maximum assistance Standing-Balance Support: Gait belt Skilled Rationale: Positioning, Sequencing, Hand placement, Verbal cues Standing Balance Skilled Intervention/Details: Pt completed static standing with mod/max up to 2-3 minutes during hygiene task. Pt with left lateral leaning and buckling of left knee requiring cues for midline posture. Pt educated on full turnk extension and use of mirror for visual feedback Mobility Assessment/Intervention: Supine to Sit Mobility [place] Level: Supine->Sit: moderate assist (50% patient effort) Physical Assist: Supine->Sit: 2 person assist Bed Features/Set-up: Supine->Sit: Use of bed rail, Head of bed elevated Skilled Rationale: Sequencing, Verbal cues, Hand placement, Positioning Skilled Intervention/Details: Supine->Sit: increased time/cues Transfer Assessment/Intervention: Sit to Stand Transfer [place] Level: Sit->Stand: moderate assist (50% patient effort) Physical Assist: Sit->Stand: 2 person assist Assistive Device: Sit->Stand: gait belt, hand held assist Skilled Rationale: Positioning, Sequencing, Hand placement, Verbal cues Skilled Intervention/Details: Sit->Stand: Pt educated in sit to stand transfers x 2 attempts, one from EOB and one from chair Bed-Chair Transfer [place] Level: Bed<->Chair: maximum assist (25% patient effort) Physical Assist: Bed<->Chair: 2 person assist Assistive Device: Bed<->Chair: gait belt Skilled Rationale: Positioning, Sequencing, Hand placement, Verbal cues Skilled Intervention/Details: Bed<->Chair: Pt educated in bed to chair transfer x 2-3 steps with max assist of 2 and arm and arm assist, max cues for weight shifting and advancing bilateral LEs. Cues for left knee extension due to buckling Gait/Functional Mobility Assessment/Intervention: Stairs Assessment/Intervention: Outcome Score(s): CURRENT [facility] Basic Mobility Inpatient Short Form Turning over in bed: 2 - A Lot of Assistance Moving from lying on back to sittin - A Lot of Assistance Moving to and from bed to chair: 1 - Total Assistance Sitting/standing from chair: 1 - Total Assistance Walk in hospital room: 1 - Total Assistance Climbing 3-5 steps with a railin - Total Assistance CURRENT [facility] Mobility Raw Score: 8 CURRENT [facility] Mobility Functional Limitation: 86.62% Impaired in Basic Mobility Interventions: Assessment & Plan: Pt making slow progress toward therapy goals, required increased assist for all mobility this date,pt would benefit from continued therapy to continue to progress to PLOF Patient Instruction/Education this session: Learners: Patient, Spouse Education provided: Activity outside of therapy, Discharge recommendations Plan for next session: Continue to progress standing tolerance and sit to stand transfers Acute PT Goals Plan of Care by Florinda Velasquez PT at 08/08/2024 12:54 PM Version 1 of 1 Problem: PT - General Goals Goal: Supine <-> Sit Transfers - Patient will perform supine to/from sit transfers with contact guard assistance and with use of hospital bed features in order to improve functional mobility and safety. Outcome: Progressing Goal: Sit <-> Stand Transfers - Patient will perform sit to/from stand transfers with minimalassistance and least restrictive device in order to improve functional mobility and safety. Outcome: Progressing Goal: Standing Endurance/Balance - Patient will perform standing balance tasks for 5 min with minimal assistance and least restrictive device Outcome: Progressing Goal: Stand/Squat Pivot Transfers - Patient will perform stand pivot transfer to/from bed/chair/commode with minimal assistance and least restrictive device in order to improve functional mobility and safety. Outcome: Progressing PT treatment consisted of the following to progress towards the above goal(s): PT Evaluation and Treatment Time Neuromuscular Re-Education Time Entry: 24 Treating Therapist: Florinda Velasquez PT Additional Details: PT Co-Eval/Treatment Information Co-evaluation/co-treatment performed?: Yes, simultaneous billable skilled care was necessary due tomedical complexity and functional deficits Other discipline: OT Rationale for need to co-eval/treat: coordination, postural control Co-treatment goal focus: balance, mobility PPE used during patient interaction: gloves Patient location at end of session: chair Alarms on at end of session: chair alarm Needs in reach. Time In: 942 Time Out: 1007 Total Visit Time: 24 minutes Total Treatment Time (skilled, billable minutes): 24 minutes Upon discontinuation of Acute Care Physical Therapy Services or patient discharge from the hospitalthis note represents the current Physical Therapy Discharge Summary. * Jazzy Aguiar - 08/08/2024 10:07 AM EDT Acute Occupational Therapy Treatment Prior Gross Functional Mobility: independent Current AM-PAC score(s): CURRENT AM-PAC Activity Raw Score: 9 Based on the above AM-PAC score(s), and OT clinical judgment, discharge destination recommendation is: Inpatient Rehab Facility Barriers to discharge home: Patient needs assistance with functional mobility, Patient needs assistance with ADLs, Patient needs assistance with IADLs (see note below) Supporting Factors (would benefit from skilled therapy services): Patient status is anticipated to be appropriate to tolerate inpatient rehab therapy requirements at time of discharge from acute care, Impaired functional status, Decreased strength, Impaired balance, Decreased endurance, Impaired self-care abilities, Impaired cognitive status, Assistance needed with functional mobility, Fall risk Mobility equipment available at home: rollator, straight cane ADL equipment available at home: shower chair Equipment recommendations for discharge: wheelchair, bedside commode Equipment issued: foam sponge Current therapy frequency recommendation(s) in acute: 5 times a week Precautions and Weightbearing Status: OT Existing Precautions/Restrictions: fall, cardiac Telemetry, Tube feed Patient Safety Communication Prior to Visit: Nursing Subjective: Pt agreeable to OT session, expressing interest in sitting up Pain: General Pain Documentation (Adult, OB, Peds) Presence of Pain: denies pain/discomfort Presence of Pain Score (Auto-calculated): 0 Objective/Observation: Vitals/Vitals Responses to Treatment: VSS O2 Device: room air Cognition Overall Cognitive Status: Impaired Arousal/Alertness: Delayed responses to stimuli Orientation Level: Oriented to person, Oriented to place Following Commands: Follows one step commands with increased time, Follows one step commands with repetition Safety Judgment: Decreased awareness of need for assistance, Decreased awareness of need for safety Awareness of Errors: Assistance required to identify errors made, Assistance required to correct errors made Deficits: Decreased awareness of deficits Attention Span: Attends with cues to redirect, Difficulty attending to directions ADL Assessment/Intervention: ADLs: ADL Assessment: Grooming Deficit, Toileting Deficit Grooming Assistance: Moderate Grooming Location: edge of bed Grooming Deficit: Increased time to complete, Activity tolerance, Generalized weakness, Balance, Wash/dry face, Wash/dry hands Grooming Skilled Rationale (Verbal/Tactile/Visual/Demonstration): Facilitate positioning, Setup, Cues for increased safety, Technique of activity Grooming Intervention/Details: Pt seated EOB with min to mod A for balance, pt needing increased cues and time to attend to and use LUE during grooming tasks, displaying limited grasp in L hand. Pt washing face with R hand, but challenged to clean R hand with L hand. L hand noted to have limited range for cleaning all parts of the R hand Toilet Assistance: Total Toileting Location: (standing sinkside) Toileting Deficit: Increased time to complete, Activity tolerance, Generalized weakness, Balance, Perineal hygiene, Bowel incontinence Toilet Skilled Rationale (Verbal/Tactile/Visual/Demonstration): Facilitate positioning, Facilitate postural control, Technique of activity, Cues for increased safety Toileting Intervention/Details: Pt experiencing bowel incontinence seated on chair, standing at sinkside for therapist to complete pericare. Pt needing cues for maintaining upright/midline position, using mirror for cues, and needing mod-max A for standing balance Balance: Sitting Balance Static Sitting-Level of Assistance: (min to mod A) Skilled Rationale: Verbal cues, Hand placement, Positioning, Full extension to upright positioning/posture, Finding/maintaining midline positioning Sitting Balance Skilled Intervention/Details: Pt sitting EOB for approx 12-14 min, cues for hand placement for increased stability as pt presents with left lateral and anterior leaning. With max cuesand placemend of R hand, pt was able to achieve brief moments of contact gaurd assist. Pt needing increased cues for using L hand to help support balance Standing Balance Static Standing-Level of Assistance: Moderate assistance, Maximum assistance Standing-Balance Support: Gait belt, Hand-held assist Skilled Rationale: Verbal cues, Tactile cues, Hand placement, Positioning Standing Balance Skilled Intervention/Details: Pt provided bilat hand held support for first stand,pt then using the sink counter for increased BUE support for the second stand. Pt standing for approx 2-3 min for second trial for pericare. Pt with noted left lateral lean and needing increased support and cues for maintaining midline position. Pt cued to use mirror for visual feedback on positioning Mobility Assessment/Intervention: Supine to Sit Mobility [place] Level: Supine->Sit: moderate assist (50% patient effort) Physical Assist: Supine->Sit: 2 person assist Bed Features/Set-up: Supine->Sit: Head of bed elevated, Use of bed rail Skilled Rationale: Verbal cues, Tactile cues, Hand placement, Positioning, Technique of activity Skilled Intervention/Details: Supine->Sit: Pt able to initiate movement of legs to EOB, needing increased time and cues for legs and trunk positioning Transfer Assessment/Intervention: Sit to Stand Transfer [place] Level: Sit->Stand: moderate assist (50% patient effort) Physical Assist: Sit->Stand: 2 person assist Assistive Device: Sit->Stand: gait belt, hand held assist Skilled Rationale: Verbal cues, Tactile cues, Hand placement, Positioning, Technique of activity Skilled Intervention/Details: Sit->Stand: x1 from EOB, x1 from recliner. Cues for technique and assuming an upright posture once standing Stand to Sit Transfer [place] Level: Stand->Sit: moderate assist (50% patient effort) Physical Assist: Stand->Sit: 2 person assist Assistive Device: Stand->Sit: gait belt, hand held assist Skilled Rationale: Verbal cues, Tactile cues, Hand placement, Positioning, Controlled descent for sitting Skilled Intervention/Details: Stand->Sit: Cues for positioning with recliner and using arms to help with controlled descent into chair Bed-Chair Transfer [place] Level: Bed<->Chair: maximum assist (25% patient effort) Physical Assist: Bed<->Chair: 2 person assist Assistive Device: Bed<->Chair: gait belt, hand held assist Skilled Rationale: Verbal cues, Tactile cues, Hand placement, Positioning, Technique of activity Skilled Intervention/Details: Bed<->Chair: Pt completing stand pivot transfer from EOB to chair on R. Pt provided bilat hand held support and needing increased support for managing LEs to step and appropriately position with chair. Outcome Score(s): CURRENT [facility] Daily Activity Inpatient Short Form Putting on/Taking Off Lower Body Clothin - Total Assistance Bathin - A Lot of Assistance Toiletin - Total Assistance Putting on/Taking Off Upper Body Clothin - A Lot of Assistance Groomin - A Lot of Assistance Eatin - Total Assistance CURRENT [facility] Activity Raw Score: 9 CURRENT [facility] Activity Functional Limitation/Modifier: 79.59% Currently Impaired in Daily Activity- CL Assessment & Plan: Pt making limited progress towards goals, completing stand pivot from EOB to chair with max x2 A for sequencing and balance. Pt needing total A for managing toileting, but tolerating standing for approx 2-3 min before expressing increased fatigue. Pt continues to be limited by cognition, balance, LUE weakness, activity tolerance, and functional mobility, and pt would benefit from continued skilled OT services to address safety and participation in ADLs. Patient Instruction/Education this session: Learners: Patient, Spouse Education provided: Activity outside of therapy, Balance training, Bed mobility, Functional transfers, Role of this discipline, Safety Teaching method: Verbal Education/Instruction Learner response: Needs review Learning considerations: Cognition Plan for next session: LUE neuro re-ed, standing tolerance, ADL engagement Acute OT Goals Plan of Care by Teagan Cronin OT at 08/08/2024 10:15 AM Version 1 of 1 Problem: OT - ADLs Goal: Grooming - Patient will complete grooming in standing with supervision for improved ability to safely complete ADLs. Outcome: Ongoing Problem: OT - Transfers Goal: Transfers Toilet/ Bedside Commode - Patient will transfer to/from toilet/bedside commode withsupervision for improved ability to safely complete ADLs. Outcome: Ongoing Problem: OT - Strength/ROM Goal: Neuro Re-education - Patient will participate in neuro re-ed of left upper extremity with supervision and 90% accuracy for improved functional use in ADLs. Outcome: Ongoing Problem: OT - Cognition Goal: Cognition Simple ADL - Patient will demonstrate improved cognition, completing simple ADL task for 7 minutes with no greater than min cues required to maintain attention. Outcome: Ongoing Problem: OT - Vision Goal: Visual Scanning ADL - Patient will employ use of visual compensatory strategies with no greater than min cues in 5/5 trials to increase participation and safety in ADLs. Outcome: Ongoing OT treatment consisted of the following to work and progress towards the above goal(s): OT Evaluation and Treatment Time Self Care/Home Management (ADLs) Time Entry: 24 Treating Therapist: Jazzy Aguiar Additional Details: OT Co-Eval/Treatment Information Co-evaluation/co-treatment performed?: Yes, simultaneous billable skilled care was necessary due tomedical complexity and functional deficits Other discipline: PT Rationale for need to co-eval/treat: postural control, cognition, coordination Co-treatment goal focus: self-care, cognition, coordination Assisted by during session: MARY Cronin PPE used during patient interaction: gloves Patient location at end of session: chair Alarms on at end of session: chair alarm, RN aware Needs in reach. Time In: 0943 Time Out: 1007 Total Visit Time: 24 minutes Total Treatment Time (skilled, billable minutes): 24 minutes Upon discontinuation of Acute Care Occupational Therapy Services or patient discharge from the hospital this note represents the current Occupational Therapy Discharge Summary. Cosigned by Teagan Cronin OT at 08/08/2024 1:50 PM EDT Associated attestation - Teagan Cronin OT - 08/08/2024 1:50 PM EDT I, Teagan Cronin OT, provided direct guidance in the room during this patient care session. I attest that all documentation reflects accurate skilled clinical decisions and judgements. * Bella Cardenas, JASIEL-WOODEN BARREL MECHANIC - 08/08/2024 7:21 AM EDT NEUROVASCULAR STROKE SERVICE Daily Progress Note IDENTIFYING INFORMATION Lindsay Acuna MR# [id number] 08/08/2024 HISTORY OF PRESENT ILLNESS Lindsay Acuna is a 78 y.o. female with PMH significant for CAD, HTN, HLD, T2DM, Afib (on Eliquis, although patient reports she has not been taking it) who presents with L hemiplegia, slurred speech. LKW 0915 on 08/02, later found down with slurred speech and L hemiplegia. She presented to [facility] and was seen on Telestroke, NIHSS 12. CTH showed no acute hemorrhage or large territory stroke. CTA with mid R M1 occlusion. She was not given IV TNK due to unclear last dose of Eliquis ( unsure of last dose). She was transferred to [facility] for further management. NIHSS 14 on arrival. Patient reports she does not remember the last time she took her Eliquis. At baseline patient is independent and still drives, mRS 0. Neurosurgery was consulted and patient was taken for mechanical thrombectomy with TICI 2b revascularization. INTERVAL HISTORY 08/05: Transfer to [place] tomorrow 08/06: Failed MBS. Increased lopressor. Spouse updated at bedside. 08/07: Discussed PEG with spouse at bedside 08/08: GI consult placed for PEG. More drowsy this AM, repeat CTH and UA ordered. HTN overnight, addlisinopril PHYSICAL EXAM Gen: awake, alert, NAD HEENT: normocephalic, no scalp lesions or tenderness Neck: trachea midline No JVD CV: +S1S2, RRR, no m/r/g Lungs: Respirations unlabored with equal chest rise Abd: soft, nontender, nondistended, +BS x4 quadrants Extrem: Warm and well perfused, no edema, 2+ pulses bilaterally Neuro: Oriented to name and age, KEITA x 4 with L hemiparesis, sensation intact and equal bilaterallyto light touch, dysarthria CN II - All visual richards intact CN II/III - PERRLA CN III/IV/ - EOMI CN V - Light touch to face intact in V1-3 CN VII - Facial movement intact and symmetrical bilaterally CN VIII - Hearing intact CN X - Cough present CN XI - muscular movement of shoulders and sternocleidomastoid muscles intact and equal bilaterally CN XII - midline protrusion of tongue MOTOR EXAMINATION: L hemiparesis, LUE ataxia NIHSS 08/08/2024 Provider NIH Stroke Scale NIH Interval (Provider): daily NIH Level of Conciousness (Provider): 1 NIH LOC Questions (Provider): 1 NIH LOC Commands (Provider): 0 NIH Best Gaze (Provider): 0 NIH Visual (Provider): 0 NIH Facial Palsy (Provider): 0 NIH Left Arm Motor (Provider): 1 NIH Right Arm Motor (Provider): 0 NIH Left Leg Motor (Provider): 1 NIH Right Leg Motor (Provider): 0 NIH Limb Ataxia (Provider): 1 NIH Sensory (Provider): 0 NIH Best Language (Provider): 0 NIH Dysarthria (Provider): 1 NIH Extinction and Inattention (Provider): 0 NIH Total Score (Provider): 6 ASSESSMENT AND PLAN Neuro: Acute R MCA stroke 2/2 R M1 occlusion s/p TICI 2b revascularization with hemorrhagic conversion, Acute R cerebellar stroke OSH CTH: no hemorrhage or large territory stroke OSH CTA brain/neck: R M1 occlusion CTH 08/03: Acute right basal ganglia hemorrhage with surrounding mass effect and midline shift Repeat CTH 08/08: pending MRI brain: Hemorrhagic infarct involving the right basal ganglia with surrounding edema. Mass effect with effacement of the right lateral ventricle and midline shift to the left. 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 TTE: EF 65-70% LDL 84 HgbA1c 7.8 -Stroke Etiology (TOAST Criteria): Cardioembolic, AFib not on AC -Antiplatelet plan: ASA 81 mg daily started 08/06 until AC resumed -AC plan: Resume 7 days post-stroke (08/09) or pending dysphagia plan -Statin therapy: Atorvastatin 40 mg daily -Blood Pressure goal: <160 Ischemic Stroke Core Measures -NIHSS on admission 14 -Patient has been started on Mechanical (SCD's) and Pharmacological (SQ heparin/Lovenox) DVT prophylaxis. -Antiplatelet therapy has been initiated, ASA 81 mg daily. -Anticoagulation therapy was indicated for this patient, d/t AFib -Patients LDL 84 and HgbA1c 7.8 were checked and the patient will be discharged on Atorvastatin 40 mg daily. -Dysphagia screening ordered, and will be completed prior to patient receiving oral intake. -Stroke education booklet has been ordered and will be provided by the RN that includes both written and verbal education to the patient and family regarding ischemic strokes. We have reviewed the patient's personal modifiable risk factors including: HTN, HLD, DM as well as education on reducing these risk factors -Patient is being assessed for Rehab by PT/OT/Speech and PM&R if indicated. Other problems: Complexity. Hypothyroidism - Continue thyroid replacement. Any conditions listed below are present on admission unless otherwise specified. . HTN, POA: -SBP goal <160 -PRN labetolol/hydralazine -Metoprolol increased to 50 mg BID 08/08; add lisinopril 10 mg daily Paroxysmal AFib, POA: -AC plan as above -Rate controlled on metoprolol Dysphagia: -NETWORK SUPPORT ENGINEER following -NPO, DHT + TF -Failed MBS 08/06 -Patient and spouse agreeable to PEG if no improvement in the coming days 08/08; GI consult for PEG placement HLD, POA: -Atorvastatin 40 mg daily CAD, POA: -ASA resumed 08/06 T2DM, POA: -SSI regular + accuchecks Recent root canal: started by outpatient dentist prior to admission -Continue PCN for 7 days (end date 08/07) CKD Stage 3A, POA: Baseline Cr 1.3 -Avoid nephrotoxins, monitor Hypothyroidism, POA: -Continue home levothyroxine 75 mcg daily Disposition: Lindsay Acuna will likely be discharged to [facility] when medically ready Bella Cardenas, INFANT LEAD TEACHER-WOODEN BARREL MECHANIC 08/08/2024 2:53 PM VITAL SIGNS Temp: [97.4 F (36.3 C)-97.8 F (36.6 C)] 97.7 F (36.5 C) Pulse (Heart Rate): [66-94] 76 Resp Rate: [12-24] 24 BP: (130-198)/(63-92) 130/78 O2 Sat (%): [94 %-98 %] 98 % Oxygen Therapy: Oxygen Therapy O2 Sat (%): 98 % O2 Device: room air Flow (L/min): 3 Intake/Output: Intake/Output Summary (Last 24 hours) at 08/08/2024 1453 Last data filed at 08/08/2024 1111 Gross per 24 hour Intake 2186.25 ml Output 300 ml Net 1886.25 ml LABS/CULTURES Lab Results Component Value Date WBC 10.39 08/08/2024 HGB 14.4 08/08/2024 HCT 45.7 (H) 08/08/2024 PLATELET 212 08/08/2024 MCV 93.3 08/08/2024 Lab Results Component Value Date SODIUM 140 08/08/2024 POTASSIUM 4.3 08/08/2024 CHLORIDE 104 08/08/2024 CO2 25 08/08/2024 BUN 35 (H) 08/08/2024 CREATSERUM 1.15 08/08/2024 GLUCOSE 148 08/08/2024 Lab Results Component Value Date CHOLESTEROL 141 08/02/2024 TRIG 96 08/02/2024 HDL 38 (L) 08/02/2024 LDLCALC 84 08/02/2024 Lab Results Component Value Date HGBA1C 7.8 (H) 08/02/2024 Lab Results Component Value Date ALBUMIN 3.5 08/02/2024 , No results found for: "CPK", "TROP" IMAGING/DIAGNOSTIC STUDIES CT HEAD WITHOUT CONTRAST XR FLUORO MODIFIED BARIUM SWALLOW WITH SPEECH Final Result IMPRESSION: 1. Inconsistent silent and sensate aspiration of thin, mildly thick/nectar, and moderately thick/honey consistencies. 2. No penetration or aspiration with pudding consistency. For additional analysis of the fluoroscopic examination for specific therapeutic recommendations, please see the ferryboat ticket taker report of the speech pathologist. Examination performed by ARCADIO Nicole, under the direct supervision of Gerry Resendez M.D., who was immediately available on site during the examination. I personally viewed and interpreted these images and I have reviewed and approved this report. CARDIOGRAM Final Result CT HEAD WITHOUT CONTRAST Final Result IMPRESSION: Stable exam. ABDOMEN 1 VIEW PORTABLE Final Result IMPRESSION: Enteric tube terminates in the expected region of the proximal second portion of the duodenum. HEAD WITHOUT CONTRAST Final Result IMPRESSION: Acute right basal ganglia hemorrhage with surrounding mass effect and midline shift stable since the MRI from earlier today SPINE CERVICAL WITHOUT CONTRAST Final Result IMPRESSION: Grade 1 anterolistheses of C3 on [...] and approved this report. BRAIN WITHOUT CONTRAST Final Result IMPRESSION: Hemorrhagic infarct involving the right basal ganglia with surrounding edema. Mass effect with effacement of the right lateral ventricle and midline shift to the left. 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 ELBOW RIGHT 2 VIEWS Final Result IMPRESSION: No acute osseous abnormality. HUMERUS RIGHT 2+ VIEWS Final Result IMPRESSION: No acute osseous abnormality. WRIST RIGHT 3+ VIEWS Final Result IMPRESSION: No acute osseous abnormality. CHEST WITH CONTRAST VASCULAR TRAUMA Final Result IMPRESSION: No acute traumatic findings within the chest. I personally viewed and interpreted these images and I have reviewed and approved this report. ABDOMEN/PELVIS WITH CONTRAST VASCULAR TRAUMA Final Result IMPRESSION: 1. No acute traumatic findings within the abdomen or pelvis. Hepatic trauma grade: None. Spleen trauma grade: None. Kidney trauma grade: None. ORBITS WITHOUT CONTRAST Final Result IMPRESSION: Motion compromised exam limiting evaluation for subtle fractures. No displaced large fractures identified Partially residual visualization of right basal ganglia hyperdensity concerning for hemorrhage. SPINE CERVICAL WITHOUT CONTRAST Final Result IMPRESSION: Anterolisthesis of C4 over C5 without any underlying fractures or prevertebral soft tissue edema. Findings are likely chronic in nature. Degenerative changes as described above. No evidence of acute fractures identified FLUOROSCOPY OR (Results Pending) MEDICATIONS aspirin 81 mg Per NG tube Daily Atorvastatin 40 mg Per NG tube QHS heparin 5,000 Units Subcutaneous Q8H 0800/1600/2200 Insulin regular 9 Units Subcutaneous Q6H Insulin regular Subcutaneous Q6H Levothyroxine 75 mcg Per NG tube Daily Lisinopril 10 mg Per NG tube Daily Metoprolol 50 mg Per NG tube Q12H Polyethylene glycol 17 g Per NG tube Q12H Senna 17.2 mg Per NG tube Q12H Water liquid (free water) 30 mL Per NG tube Q4H Cosigned by Felicity Castellano MD at 08/12/2024 10:46 AM EDT * Chela Hannon - 08/07/2024 2:44 PM EDT Placement Plan Expected Discharge Date: TBD Referred Level of Care: IPR Barriers: medical stability, bed availability Current Referrals and Status 1. [facility]- Reserved CCM notified SW student confirming after call with Patient's daughter that [facility] is facility of choice. Facility reserved. AVS/DAVE updated. Chela Snyder Social Work Student Available by Secure Chat Cosigned by OWEN Keller at 08/08/2024 7:39 AM EDT * Prema Resendez RN - 08/07/2024 2:39 PM EDT Care Management Progress Note Notified by SW student that patient's daughter, Gisela Acuna, has questions for this CM. Called Gisela, who asked if [facility] able to accept or not. Discussed with Gisela that [facility] responded that they are out of network with patient's insurance, therefore only option would be private pay. Gisela stated that patient and patient's spouse are agreeable to [facility] as facility of choice, and Gisela is agreeable to [facility] as well. Updated SW student. Simin Resendez, RN, BSN Clinical Drink Mixer [facility] * Chela Hannon - 08/07/2024 2:08 PM EDT Placement Plan MEDICAL PHYSICS PROFESSOR met with Patient and spouse at bedside to discuss facility choice. Spouse mentioned that [facility] was first choice, though MEDICAL PHYSICS PROFESSOR provided update that [facility] could not accept after reviewing. MEDICAL PHYSICS PROFESSOR reviewed other IPR options with Spouse, who reports that [facility] would be facility of choice. Spouse discussed with daughter Gisela via phone, who is in agreement but requestsa return call. MEDICAL PHYSICS PROFESSOR notified CCM. Chela Snyder, Social Work Student Available by Secure Chat Cosigned by OWEN Keller at 08/07/2024 2:11 PM EDT * Bella Cardenas APRN-GARRETT - 08/07/2024 6:54 AM EDT NEUROVASCULAR STROKE SERVICE Daily Progress Note IDENTIFYING INFORMATION Lindsay Acuna MR# [id number] 08/07/2024 HISTORY OF PRESENT ILLNESS Lindsay Acuna is a 78 y.o. female with PMH significant for CAD, HTN, HLD, T2DM, Afib (on Eliquis, although patient reports she has not been taking it) who presents with L hemiplegia, slurred speech. LKW 0915 on 08/02, later found down with slurred speech and L hemiplegia. She presented to [facility] and was seen on Telestroke, NIHSS 12. CTH showed no acute hemorrhage or large territory stroke. CTA with mid R M1 occlusion. She was not given IV TNK due to unclear last dose of Eliquis ( unsure of last dose). She was transferred to [facility] for further management. NIHSS 14 on arrival. Patient reports she does not remember the last time she took her Eliquis. At baseline patient is independent and still drives, mRS 0. Neurosurgery was consulted and patient was taken for mechanical thrombectomy with TICI 2b revascularization. INTERVAL HISTORY 08/05: [place] [facility] [place] 08/06: Failed MBS. Increased lopressor. Spouse updated at bedside. 08/07: Discussed PEG with spouse at bedside PHYSICAL EXAM Gen: awake, alert, NAD HEENT: normocephalic, no scalp lesions or tenderness Neck: trachea midline No JVD CV: +S1S2, RRR, no m/r/g Lungs: Respirations unlabored with equal chest rise Abd: soft, nontender, nondistended, +BS x4 quadrants Extrem: Warm and well perfused, no edema, 2+ pulses bilaterally Neuro: Oriented to name and age, KEITA x 4 with L hemiparesis, sensation intact and equal bilaterallyto light touch, dysarthria CN II - All visual richards intact CN II/III - PERRLA CN III/IV/ - EOMI CN V - Light touch to face intact in V1-3 CN VII - Facial movement intact and symmetrical bilaterally CN VIII - Hearing intact CN X - Cough present CN XI - muscular movement of shoulders and sternocleidomastoid muscles intact and equal bilaterally CN XII - midline protrusion of tongue MOTOR EXAMINATION: L hemiparesis, LUE ataxia NIHSS 08/07/2024 Provider NIH Stroke Scale NIH Interval (Provider): daily NIH Level of Conciousness (Provider): 0 NIH LOC Questions (Provider): 1 NIH LOC Commands (Provider): 0 NIH Best Gaze (Provider): 0 NIH Visual (Provider): 0 NIH Facial Palsy (Provider): 0 NIH Left Arm Motor (Provider): 1 NIH Right Arm Motor (Provider): 0 NIH Left Leg Motor (Provider): 1 NIH Right Leg Motor (Provider): 0 NIH Limb Ataxia (Provider): 1 NIH Sensory (Provider): 0 NIH Best Language (Provider): 0 NIH Dysarthria (Provider): 1 NIH Extinction and Inattention (Provider): 0 NIH Total Score (Provider): 5 ASSESSMENT AND PLAN Neuro: Acute R MCA stroke 2/2 R M1 occlusion s/p TICI 2b revascularization with hemorrhagic conversion, Acute R cerebellar stroke OSH CTH: no hemorrhage or large territory stroke OSH CTA brain/neck: R M1 occlusion CTH 08/03: Acute right basal ganglia hemorrhage with surrounding mass effect and midline shift MRI brain: Hemorrhagic infarct involving the right basal ganglia with surrounding edema. Mass effect with effacement of the right lateral ventricle and midline shift to the left. 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 TTE: EF 65-70% LDL 84 HgbA1c 7.8 -Stroke Etiology (TOAST Criteria): Cardioembolic, AFib not on AC -Antiplatelet plan: ASA 81 mg daily started 08/06 until AC resumed -AC plan: Resume 7 days post-stroke (08/09) or pending dysphagia plan -Statin therapy: Atorvastatin 40 mg daily -Blood Pressure goal: <160 Ischemic Stroke Core Measures -NIHSS on admission 14 -Patient has been started on Mechanical (SCD's) and Pharmacological (SQ heparin/Lovenox) DVT prophylaxis. -Antiplatelet therapy has been initiated, ASA 81 mg daily. -Anticoagulation therapy was indicated for this patient, d/t AFib -Patients LDL 84 and HgbA1c 7.8 were checked and the patient will be discharged on Atorvastatin 40 mg daily. -Dysphagia screening ordered, and will be completed prior to patient receiving oral intake. -Stroke education booklet has been ordered and will be provided by the RN that includes both written and verbal education to the patient and family regarding ischemic strokes. We have reviewed the patient's personal modifiable risk factors including: HTN, HLD, DM as well as education on reducing these risk factors -Patient is being assessed for Rehab by PT/OT/Speech and PM&R if indicated. Other problems: Complexity. Hypothyroidism - Continue thyroid replacement. Any conditions listed below are present on admission unless otherwise specified. . HTN, POA: -SBP goal <160 -PRN labetolol/hydralazine -Metoprolol increased to 50 mg BID Paroxysmal AFib, POA: -AC plan as above -Rate controlled on metoprolol Dysphagia: -NETWORK SUPPORT ENGINEER following -NPO, DHT + TF -Failed MBS 08/06 -Patient and spouse agreeable to PEG if no improvement in the coming days HLD, POA: -Atorvastatin 40 mg daily CAD, POA: -ASA resumed 08/06 T2DM, POA: -SSI regular + accuchecks Recent root canal: started by outpatient dentist prior to admission -Continue PCN for 7 days (end date 08/07) CKD Stage 3A, POA: Baseline Cr 1.3 -Avoid nephrotoxins, monitor Hypothyroidism, POA: -Continue home levothyroxine 75 mcg daily\\ Disposition: Lindsay Acuna will likely be discharged to [facility] when medically ready Bella Cardenas, INFANT LEAD TEACHER-WOODEN BARREL MECHANIC 08/07/2024 3:06 PM VITAL SIGNS Temp: [97.5 F (36.4 C)-98.1 F (36.7 C)] 97.6 F (36.4 C) Pulse (Heart Rate): [77-109] 85 Resp Rate: [9-34] 13 BP: (84-191)/(52-100) 157/73 O2 Sat (%): [94 %-98 %] 96 % Oxygen Therapy: Oxygen Therapy O2 Sat (%): 96 % O2 Device: room air Intake/Output: Intake/Output Summary (Last 24 hours) at 08/07/2024 1506 Last data filed at 08/07/2024 1200 Gross per 24 hour Intake 1184.67 ml Output 230 ml Net 954.67 ml LABS/CULTURES Lab Results Component Value Date WBC 11.30 (H) 08/06/2024 HGB 13.7 08/06/2024 HCT 43.1 08/06/2024 PLATELET 214 08/06/2024 MCV 93.1 08/06/2024 Lab Results Component Value Date SODIUM 142 08/06/2024 POTASSIUM 4.2 08/06/2024 CHLORIDE 105 08/06/2024 CO2 28 08/06/2024 BUN 34 (H) 08/06/2024 CREATSERUM 1.19 08/06/2024 GLUCOSE 100 08/06/2024 Lab Results Component Value Date CHOLESTEROL 141 08/02/2024 TRIG 96 08/02/2024 HDL 38 (L) 08/02/2024 LDLCALC 84 08/02/2024 Lab Results Component Value Date HGBA1C 7.8 (H) 08/02/2024 Lab Results Component Value Date ALBUMIN 3.5 08/02/2024 , No results found for: "CPK", "TROP" IMAGING/DIAGNOSTIC STUDIES XR FLUORO MODIFIED BARIUM SWALLOW WITH SPEECH Final Result IMPRESSION: 1. Inconsistent silent and sensate aspiration of thin, mildly thick/nectar, and moderately thick/honey consistencies. 2. No penetration or aspiration with pudding consistency. For additional analysis of the fluoroscopic examination for specific therapeutic recommendations, please see the ferryboat ticket taker report of the speech pathologist. Examination performed by ARCADIO Nicole, under the direct supervision of Gerry Resendez M.D., who was immediately available on site during the examination. I personally viewed and interpreted these images and I have reviewed and approved this report. CARDIOGRAM Final Result CT HEAD WITHOUT CONTRAST Final Result IMPRESSION: Stable exam. ABDOMEN 1 VIEW PORTABLE Final Result IMPRESSION: Enteric tube terminates in the expected region of the proximal second portion of the duodenum. HEAD WITHOUT CONTRAST Final Result IMPRESSION: Acute right basal ganglia hemorrhage with surrounding mass effect and midline shift stable since the MRI from earlier today SPINE CERVICAL WITHOUT CONTRAST Final Result IMPRESSION: Grade 1 anterolistheses of C3 on [...] and approved this report. BRAIN WITHOUT CONTRAST Final Result IMPRESSION: Hemorrhagic infarct involving the right basal ganglia with surrounding edema. Mass effect with effacement of the right lateral ventricle and midline shift to the left. 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 ELBOW RIGHT 2 VIEWS Final Result IMPRESSION: No acute osseous abnormality. HUMERUS RIGHT 2+ VIEWS Final Result IMPRESSION: No acute osseous abnormality. WRIST RIGHT 3+ VIEWS Final Result IMPRESSION: No acute osseous abnormality. CHEST WITH CONTRAST VASCULAR TRAUMA Final Result IMPRESSION: No acute traumatic findings within the chest. I personally viewed and interpreted these images and I have reviewed and approved this report. ABDOMEN/PELVIS WITH CONTRAST VASCULAR TRAUMA Final Result IMPRESSION: 1. No acute traumatic findings within the abdomen or pelvis. Hepatic trauma grade: None. Spleen trauma grade: None. Kidney trauma grade: None. ORBITS WITHOUT CONTRAST Final Result IMPRESSION: Motion compromised exam limiting evaluation for subtle fractures. No displaced large fractures identified Partially residual visualization of right basal ganglia hyperdensity concerning for hemorrhage. SPINE CERVICAL WITHOUT CONTRAST Final Result IMPRESSION: Anterolisthesis of C4 over C5 without any underlying fractures or prevertebral soft tissue edema. Findings are likely chronic in nature. Degenerative changes as described above. No evidence of acute fractures identified FLUOROSCOPY OR (Results Pending) MEDICATIONS aspirin 81 mg Per NG tube Daily Atorvastatin 40 mg Per NG tube QHS heparin 5,000 Units Subcutaneous Q8H 0800/1600/2200 Insulin regular 9 Units Subcutaneous Q6H Insulin regular Subcutaneous Q6H Levothyroxine 75 mcg Per NG tube Daily Metoprolol 50 mg Per NG tube Q12H Penicillin v potassium 500 mg Per NG tube Q12H Polyethylene glycol 17 g Per NG tube Q12H Senna 17.2 mg Per NG tube Q12H Water liquid (free water) 30 mL Per NG tube Q4H Cosigned by Felicity Castellano MD at 08/12/2024 10:46 AM EDT * Prema Resendez RN - 08/06/2024 3:10 PM EDT Placement Plan Expected Discharge Date: tbd Referred Level of Care: IPR Barriers: medical stability, long-term nutrition plan, facility choice, insurance authorization, transportation Current Referrals and Status 1. [facility]: Available 2. [facility]: Available 3. [facility]: Available (pending PEG or diet and their MD requested aspirin started before discharge) 4. [facility]: Available 5. [facility]: Unavailable, out of network 6. [facility]: Unavailable, Incorrect Level of Care 7. [facility] IPR: sent Met with patient and patient's spouse, Ike, at bedside to provide choice list. Ike called patient's daughter, Gisela Acuna, to discuss as well. Gisela requested information on private pay at [facility], messaged [facility] liaison and then provided information to Gisela. Gisela requested CM sendreferral to [facility] IPR. Plan for family to review choice list FREDRICK camargo/LUCIO team will update patient and family regarding [facility] IPR response tomorrow morning. This CM's contact information provided to Ike Acuna and Gisela Acuna for any further questions. Simin Resendez RN, BSN [employer] [facility] * Florinda Velasquez PT - 08/06/2024 2:30 PM EDT Acute Physical Therapy Treatment Prior Gross Functional Mobility: independent Current AM-PAC score(s): CURRENT AM-PAC Mobility Raw Score: 9 Based on the above AM-PAC score(s) and PT clinical judgment, patient is a good candidate for discharge to Inpatient Rehab Facility Supporting Factors (would benefit from skilled therapy services): Patient status is anticipated to be appropriate to tolerate inpatient rehab therapy requirements at time of discharge from acute care, Decreased endurance necessitating skilled therapy services, but able to tolerate therapy requiremen ts for inpatient rehab, Assistance needed with functional mobility Mobility equipment available at home: rollator, straight cane ADL equipment available at home: shower chair Equipment needed for discharge: to be determined Current therapy frequency recommendation in acute: PT Therapy Frequency: 5 times a week Activity Recommendations for outside of rehab session: 2 person pivot toward patients right side Precautions and Weightbearing Status: Existing Precautions/Restrictions: fall Telemetry, Tube feed Patient Safety Communication Prior to Visit: Nursing Subjective: pt was agreeable to participate, pt reports not knowing her left from right at baseline Pain: General Pain Documentation (Adult, OB, Peds) Presence of Pain: denies pain/discomfort Presence of Pain Score (Auto-calculated): 0 Objective/Observation: Vitals/Vitals Responses to Treatment: WFL O2 Device: room air Cognition Overall Cognitive Status: Impaired Arousal/Alertness: Delayed responses to stimuli Orientation Level: Oriented to place, Oriented to person Following Commands: Follows one step commands with increased time, Follows one step commands with repetition Safety Judgment: Decreased awareness of need for assistance, Decreased awareness of need for safety Extremity Assessments: See PT Evaluation flowsheet for Extremity Measurement updates. Skin and Edema: Balance: Sitting Balance Static Sitting-Level of Assistance: Contact guard Dynamic Sitting-Level of Assistance: Minimum assistance Skilled Rationale: Positioning, Sequencing, Hand placement, Verbal cues Sitting Balance Skilled Intervention/Details: Pt completed EOB sitting with left lateral leaning, cues for midline posture Standing Balance Static Standing-Level of Assistance: (mod/max) Standing-Balance Support: Gait belt Skilled Rationale: Sequencing, Positioning, Hand placement, Verbal cues, Full extension to upright positioning/posture, Finding/maintaining midline positioning Standing Balance Skilled Intervention/Details: Pt completed standing throughout session with mod/max assist due to patient with left lateral leaning, pt able to attempt to correct to midline with cues but unable to maintain. pt completed standing during functional ADLs up to 2-3 minutes Mobility Assessment/Intervention: Supine to Sit Mobility [place] Level: Supine->Sit: moderate assist (50% patient effort) Bed Features/Set-up: Supine->Sit: Head of bed elevated, Use of bed rail Skilled Rationale: Positioning, Sequencing Skilled Intervention/Details: Supine->Sit: step by step cues for sequencingg Transfer Assessment/Intervention: Sit to Stand Transfer [place] Level: Sit->Stand: moderate assist (50% patient effort) Physical Assist: Sit->Stand: (1-2) Assistive Device: Sit->Stand: gait belt, hand held assist Skilled Rationale: Positioning, Sequencing, Hand placement, Verbal cues Skilled Intervention/Details: Sit->Stand: Pt educated in sit to stand transfers throughout session with mod assist of 2, able to progress to mod assist of 1 as session progressed, cues for use of left UE during transitional movements Bed-Chair Transfer [place] Level: Bed<->Chair: moderate assist (50% patient effort) Physical Assist: Bed<->Chair: 2 person assist Assistive Device: Bed<->Chair: gait belt, hand held assist Skilled Rationale: Positioning, Hand placement, Verbal cues, Sequencing Skilled Intervention/Details: Bed<->Chair: Pt educated in bed to BSC commode transfer x 2-3 steps with cues for LE sequencing, left LE weakness requiring intermittent blocking Gait/Functional Mobility Assessment/Intervention: Gait Assessment [place] Level: Gait: (mod/max) Physical Assist: Gait: 2 person assist Assistive Device: Gait: gait belt, hand held assist Ambulation Distance (Feet): (5-8 feet) Gait Deviations Identified: ataxic, decreased vy, left, decreased gait speed, decreased heel strike, decreased step length, decreased stride length, decreased weight shifting Gait Skilled Rationale: verbal, upright posture, increase step length Skilled Intervention/Details - Gait: pt edcuated in gait training with mod/max assist of 2, arm andarm assist, cues for placement of left LE during stance phase and left knee extension during stancephase to prevent buckling. Stairs Assessment/Intervention: Outcome Score(s): CURRENT [facility] Basic Mobility Inpatient Short Form Turning over in bed: 2 - A Lot of Assistance Moving from lying on back to sittin - A Lot of Assistance Moving to and from bed to chair: 2 - A Lot of Assistance Sitting/standing from chair: 1 - Total Assistance Walk in hospital room: 1 - Total Assistance Climbing 3-5 steps with a railin - Total Assistance CURRENT [facility] Mobility Raw Score: 9 CURRENT [facility] Mobility Functional Limitation: 81.38% Impaired in Basic Mobility Interventions: Assessment & Plan: Pt making good progress toward therapy goals, improved gait training Patient Instruction/Education this session: Learners: Patient, Spouse Education provided: Activity outside of therapy, Discharge recommendations Plan for next session: Continue to progress standing balance/gait distance Acute PT Goals Plan of Care by Florinda Velasquez PT at 08/06/2024 2:30 PM Version 1 of 1 Problem: PT - General Goals Goal: Supine <-> Sit Transfers - Patient will perform supine to/from sit transfers with contact guard assistance and with use of hospital bed features in order to improve functional mobility and safety. Outcome: Progressing Goal: Sit <-> Stand Transfers - Patient will perform sit to/from stand transfers with minimalassistance and least restrictive device in order to improve functional mobility and safety. Outcome: Progressing Goal: Standing Endurance/Balance - Patient will perform standing balance tasks for 5 min with minimal assistance and least restrictive device Outcome: Progressing Goal: Stand/Squat Pivot Transfers - Patient will perform stand pivot transfer to/from bed/chair/commode with minimal assistance and least restrictive device in order to improve functional mobility and safety. Outcome: Progressing Goal: Ambulation - Patient will ambulate 50 feet with minimal assistance and of 2 people and least restrictive device to improve ability to safely navigate home and community. Outcome: Progressing PT treatment consisted of the following to progress towards the above goal(s): PT Evaluation and Treatment Time Gait Training Time Entry: 13 Neuromuscular Re-Education Time Entry: 14 Treating Therapist: Florinda Velasquez PT Additional Details: PT Co-Eval/Treatment Information Co-evaluation/co-treatment performed?: Yes, simultaneous billable skilled care was necessary due tomedical complexity and functional deficits Other discipline: OT Rationale for need to co-eval/treat: coordination, postural control Co-treatment goal focus: balance, mobility PPE used during patient interaction: gloves Patient location at end of session: chair Alarms on at end of session: chair alarm, RN aware Needs in reach. Time In: 1005 Time Out: 1032 Total Visit Time: 27 minutes Total Treatment Time (skilled, billable minutes): 27 minutes Upon discontinuation of Acute Care Physical Therapy Services or patient discharge from the hospitalthis note represents the current Physical Therapy Discharge Summary. * Nimesh Balderrama [facility] - 08/06/2024 1:42 PM EDT Department of Pharmacy Admission Medication Reconciliation Note Patient: Lindsay Acuna Room/Bed: 1043/A I have reviewed the patient's home medication list with the following sources Dispense Report. The home medication list status is: complete. All changes to the home medication list have been updated in [facility]. Updated [employer] Med List: Prior to Admission Medications Prescriptions Eliquis 2.5 MG tablet Sig: Take 1 tablet by mouth every 12 hours. Levothyroxine 75 MCG tablet Sig: Take 1 tablet by mouth every morning before breakfast. gliMEPIride 2 MG tablet Sig: Take 1 tablet by mouth daily every morning. oxyBUTYnin CR 5 MG Tab SR 24 HR tablet Sig: Take 1 tablet by mouth daily. Facility-Administered Medications: None Added to Home Medications: N/A Deleted from Home Medications: N/A Edits to Home Medications: Oxybutynin adjusted from immediate release to extended release tablets. Other Comments: The patient's allergies were not reviewed at this time. Please feel free to contact me with any further questions. Name: Nimesh Balderrama RPH Phone #: [phone] Date/Time: 08/06/2024 1:42 PM Time Spent: 10 minutes * Rachell Blake OT - 08/06/2024 10:05 AM EDT Acute Occupational Therapy Treatment Prior Gross Functional Mobility: independent Current AM-PAC score(s): CURRENT AM-PAC Activity Raw Score: 9 Based on the above AM-PAC score(s), and OT clinical judgment, discharge destination recommendation is: Inpatient Rehab Facility Supporting Factors (would benefit from skilled therapy services): Patient status is anticipated to be appropriate to tolerate inpatient rehab therapy requirements at time of discharge from acute care, Impaired functional status, Decreased strength, Impaired balance, Decreased endurance, Impaired self-care abilities, Impaired cognitive status, Assistance needed with functional mobility, Fall risk Mobility equipment available at home: rollator, straight cane ADL equipment available at home: shower chair Equipment recommendations for discharge: wheelchair, bedside commode Equipment issued: foam sponge Current therapy frequency recommendation(s) in acute: 5 times a week Activity Recommendations for outside of rehab session: 2 person side-steps to the right to bedside chair/commode with gait belt. Precautions and Weightbearing Status: OT Existing Precautions/Restrictions: fall, cardiac (Exit alarm.) Telemetry, Tube feed Patient Safety Communication Prior to Visit: Nursing Subjective: Pt reported, "I can't tell my right and left apart normally." Pain: General Pain Documentation (Adult, OB, Peds) Presence of Pain: denies pain/discomfort Presence of Pain Score (Auto-calculated): 0 Objective/Observation: Vitals/Vitals Responses to Treatment: No adverse reactions noted. O2 Device: room air Vision Screen Currently wearing corrective lenses: No Clinical Observations: This date, pt appears to present with likely aspects of left inattention, requiring cues for left visual scanning/attention and integrating left UE into functional activity performance. Visual Impairments Observed?: Yes Speech Speech: slurred speech (Mild.) Hearing Hearing: no gross deficits noted Cognition Overall Cognitive Status: Impaired Arousal/Alertness: Delayed responses to stimuli Orientation Level: Oriented to person, Oriented to place Following Commands: Follows one step commands with increased time, Follows one step commands with repetition Safety Judgment: Decreased awareness of need for assistance, Decreased awareness of need for safety Awareness of Errors: Assistance required to identify errors made, Assistance required to correct errors made Deficits: Decreased awareness of deficits Attention Span: Difficulty attending to directions, Difficulty dividing attention Memory: Decreased short term memory Problem Solving: Assistance required to identify errors made, Assistance required to generate solutions, Assistance required to implement solutions Cognition Comments: Delayed processing rate/motor planning; Mild-moderate confusion; Overall, reduced insight into deficits/safety awareness. ADL Assessment/Intervention: Grooming Assistance: Moderate Grooming Location: seated at sink, standing at sink Grooming Deficit: Wash/dry face, Oral care, Brushing hair, Initiation, Sequencing, Problem solving,Follows safety/precautions, Attention, Balance, Retrieval of items, Manipulation of items, Opening/closing containers, Bringing items to mouth/face, Maintain grasp of items, Generalized weakness, Activity tolerance, Increased time to complete Grooming Skilled Rationale (Verbal/Tactile/Visual/Demonstration): Setup, Cues for increased safety,Technique of activity, Cues for cognitive deficit, Facilitate postural control, Facilitate positioning Grooming Intervention/Details: Seated at sink, pt completed brushing hair and setting up oral care task. Pt required significant cues/assistance to integrate left UE into task performance (mild graspon objects), mildly grasping object and with overall limited strength/coordination in limb. Additionally, when brushing hair pt able to perform about 25% with left UE, completing remainder with right UE. In standing, pt washed face and brushed teeth, requiring increased assistance for standing balance maintenance; Overall, significantly increased time/effort to engage in ADL tasks this date. Toilet Assistance: Total Toileting Location: bedside commode Toileting Deficit: Perineal hygiene Toileting Intervention/Details: This date, pt requiring moderate-max assistance x 1 to maintain static standing balance and, in turn, dependent for hygiene/osvaldo-care performance in this position. Extremity Assessments: See OT Evaluation flowsheet for Extremity Measurement updates. Balance: Sitting Balance Static Sitting-Level of Assistance: Contact guard Dynamic Sitting-Level of Assistance: Minimum assistance Sitting Balance Skilled Intervention/Details: Seated EOB for about 5-6 minutes, mostly requiring cues for safety and with retropulsive/left lateral lean. Standing Balance Static Standing-Level of Assistance: Moderate assistance, Maximum assistance Dynamic Standing-Level of Assistance: Moderate assistance, Maximum assistance, 2-person assist Standing Balance Skilled Intervention/Details: Standing for about 2-3 minutes at a time (x several trials) while completing functional transfers/mobility, toileting, and grooming at sink, mostly requiring cues for safety and with initial hip extension, retropulsive/left lateral lean, left LE buckling, and kyphotic posture. Skin and Edema: Skin Integrity Skin Integrity Description: WFL (Visible areas.) Edema Edema: none noted Mobility Assessment/Intervention: Supine to Sit Mobility [place] Level: Supine->Sit: moderate assist (50% patient effort) Bed Features/Set-up: Supine->Sit: Head of bed elevated, Use of bed rail Skilled Rationale: Cues for increased safety, Initiation and execution of task, Technique of activity, Full extension to upright positioning/posture, Facilitate anterior shift, Tactile cues, Verbal cues, Hand placement, Sequencing, Positioning Skilled Intervention/Details: Supine->Sit: Cues for initiation/sequencing/safety, as well as assisting with upper trunk support, LEs (left>right), and aligning hips to midline. Increased time/effort for performance and increased cueing to integrate right UE/LE into completion. Transfer Assessment/Intervention: Sit to Stand Transfer [place] Level: Sit->Stand: (x 1 trial from EOB (Moderate assistance x 2); x 2 trials from bedside chair at sink (Moderate assistance x 1).) Physical Assist: Sit->Stand: (1-2 person assist.) Assistive Device: Sit->Stand: gait belt (Arm and arm assist.) Skilled Rationale: Cues for increased safety, Initiation and execution of task, Technique of activity, Upright gaze/neck extension, Finding/maintaining midline positioning, Full extension to upright positioning/posture, Facilitate anterior shift, Ischial assist, Patellar block, Arm in arm, Verbal cues, Tactile cues, Hand placement, Sequencing, Positioning Skilled Intervention/Details: Sit->Stand: Cues for initiation/sequencing/safety, as well as assisting with initial hip extension, retropulsive/left lateral lean, left LE buckling, and kyphotic posture. Stand to Sit Transfer [place] Level: Stand->Sit: moderate assist (50% patient effort) Assistive Device: Stand->Sit: gait belt (Arm and arm assist.) Skilled Rationale: Cues for increased safety, Initiation and execution of task, Technique of activity, Controlled descent for sitting, Ischial assist, Arm in arm, Tactile cues, Verbal cues, Hand placement, Sequencing, Positioning Bed-Chair Transfer [place] Level: Bed<->Chair: moderate assist (50% patient effort) (EOB>Bedside commode.) Physical Assist: Bed<->Chair: 2 person assist Assistive Device: Bed<->Chair: gait belt (Arm and arm assist.) Skilled Rationale: Cues for increased safety, Initiation and execution of task, Technique of activity, Finding/maintaining midline positioning, Upright gaze/neck extension, Controlled descent for sitting, Full extension to upright positioning/posture, Facilitate anterior shift, Ischial assist, Patellar block, Arm in arm, Tactile cues, Verbal cues, Hand placement, Sequencing, Positioning Skilled Intervention/Details: Bed<->Chair: Cues for initiation/sequencing/safety, as well as assisting with maintenance of upright posture while side-stepping to the right to align hips to bedside commode prior to initiation of descent. Pt requiring increased assist to correct left LE buckling and left lateral lean, as well as to assist with overall lateral weight shifting and stepping (limited coordination with stepping with left LE). Functional Mobility: Functional Mobility [place] Level: Functional Mobility/Gait: (Moderate-max assistance) Physical Assist: Functional Mobility/Gait: 2 person assist, chair follow Assistive Device: Functional Mobility/Gait: gait belt, hand held assist (Bilateral hand-held assist; Non-skid socks.) Functional Mobility Distance: (Few steps from bedside commode to bedside chair.) Skilled Intervention/Details - Functional Mobility/Gait: No SOB experienced; Significant unsteadiness with pt requiring increased assistance to correct left lateral lean and left LE buckling. Pt withdecreased coordination when stepping with left LE and with overall decreased insight/awareness intodeficits. Outcome Score(s): CURRENT [facility] Daily Activity Inpatient Short Form Putting on/Taking Off Lower Body Clothin - Total Assistance Bathin - A Lot of Assistance Toiletin - Total Assistance Putting on/Taking Off Upper Body Clothin - A Lot of Assistance Groomin - A Lot of Assistance Eatin - Total Assistance ([place].) CURRENT [facility] Activity Raw Score: 9 CURRENT [facility] Activity Functional Limitation/Modifier: 79.59% Currently Impaired in Daily Activity- CL Assessment & Plan: Pt is demonstrating Fair progress in occupational therapy goals this date, primarily in static seated balance, right UE ROM, right UE strength, speech, and alertness. However, pt's barriers to discharge and overall inhibitors in ADL/IADL/functional transfer performance/independence include pt's deficits in endurance/activity tolerance, bed mobility, dynamic seated balance, static standing balance, dynamic standing balance, functional transfers, functional mobility, left UE ROM, left UE coordination, right UE coordination, vision, and cognition. Pt would benefit from continued acute occupational therapy services prior to discharge to address noted deficits and progress towards achieving increased independence in occupational performance. Patient Instruction/Education this session: Learners: Patient, Spouse Education provided: Balance training, Bed mobility, Discharge recommendations, Plan of care, Positioning, Role of this discipline, Safety, Activity outside of therapy, Fall precautions, Functional transfers, Gait training safety, Neuromuscular re-education Plan for next session: Therapist to address further dynamic seated/standing balance, functional transfer performance, left UE neuro re-education, and ADL engagement. Acute OT Goals Plan of Care by Rachell Blake OT at 08/06/2024 10:06 AM Version 1 of 1 Problem: OT - ADLs Goal: Lower Body Dressing - Patient will complete lower body dressing tasks with supervision using adaptive equipment/compensatory strategies as needed for improved ability to complete self-care activities. Outcome: Ongoing Problem: OT - ADLs Goal: Grooming - Patient will complete grooming in standing with supervision for improved ability to safely complete ADLs. Outcome: Progressing Problem: OT - Transfers Goal: Transfers Toilet/ Bedside Commode - Patient will transfer to/from toilet/bedside commode withsupervision for improved ability to safely complete ADLs. Outcome: Progressing Problem: OT - Strength/ROM Goal: Neuro Re-education - Patient will participate in neuro re-ed of left upper extremity with supervision and 90% accuracy for improved functional use in ADLs. Outcome: Progressing Problem: OT - Cognition Goal: Cognition Simple ADL - Patient will demonstrate improved cognition, completing simple ADL task for 7 minutes with no greater than min cues required to maintain attention. Outcome: Progressing Problem: OT - Vision Goal: Visual Scanning ADL - Patient will employ use of visual compensatory strategies with no greater than min cues in 5/5 trials to increase participation and safety in ADLs. Outcome: Progressing OT treatment consisted of the following to work and progress towards the above goal(s): OT Evaluation and Treatment Time Self Care/Home Management (ADLs) Time Entry: 13 Neuromuscular Re-Education Time Entry: 14 Treating Therapist: Rachell Blake OT Additional Details: OT Co-Eval/Treatment Information Co-evaluation/co-treatment performed?: Yes, simultaneous billable skilled care was necessary due tomedical complexity and functional deficits Other discipline: PT Rationale for need to co-eval/treat: cognition, coordination, postural control Co-treatment goal focus: mobility, balance, transfer, endurance, coordination, self-care, cognition, strength PPE used during patient interaction: gloves Patient location at end of session: chair Alarms on at end of session: RN aware, chair alarm Needs in reach. Time In: 1005 Time Out: 1032 Total Visit Time: 27 minutes Total Treatment Time (skilled, billable minutes): 27 minutes Upon discontinuation of Acute Care Occupational Therapy Services or patient discharge from the hospital this note represents the current Occupational Therapy Discharge Summary. * Taran Traore APRN-[employer] - 08/06/2024 7:49 AM EDT NEUROVASCULAR STROKE SERVICE Daily Progress Note IDENTIFYING INFORMATION Lindsay Acuna MR# [id number] 08/06/2024 HISTORY OF PRESENT ILLNESS Lindsay Acuna is a 78 y.o. female with PMH significant for CAD, HTN, HLD, T2DM, Afib (on Eliquis, although patient reports she has not been taking it) who presents with L hemiplegia, slurred speech. LKW [id number] on 08/02, later found down with slurred speech and L hemiplegia. She presented to [facility] and was seen on Telestroke, NIHSS 12. CTH showed no acute hemorrhage or large territory stroke. CTA with mid R M1 occlusion. She was not given IV TNK due to unclear last dose of Eliquis ( unsure of last dose). She was transferred to [facility] for further management. NIHSS 14 on arrival. Patient reports she does not remember the last time she took her Eliquis. At baseline patient is independent and still drives, mRS 0. Neurosurgery was consulted and patient was taken for mechanical thrombectomy with TICI 2b revascularization. INTERVAL HISTORY 08/05: [place] [facility] [place]: Failed MBS. Increased lopressor. Spouse updated at bedside. PHYSICAL EXAM Gen: awake, alert, NAD HEENT: normocephalic, no scalp lesions or tenderness Neck: trachea midline No JVD CV: +S1S2, RRR, no m/r/g Lungs: LCTA bilaterally with equal chest rise Abd: soft, nontender, nondistended, +BS x4 quadrants Extrem: Warm and well perfused, no edema, 2+ pulses bilaterally Neuro: Oriented to name and age, KEITA x 4, sensation intact and equal bilaterally to light touch, dysarthria CN II - All visual richards intact CN II/III - PERRLA CN III/IV/ - EOMI CN V - Light touch to face intact in V1-3 CN VII - Facial movement intact and symmetrical bilaterally CN VIII - Hearing intact CN X - Cough present CN XI - muscular movement of shoulders and sternocleidomastoid muscles intact and equal bilaterally CN XII - midline protrusion of tongue MOTOR EXAMINATION: L hemiparesis, LUE ataxia NIHSS 08/06/2024 Provider NIH Stroke Scale NIH Interval (Provider): daily NIH Level of Conciousness (Provider): 0 NIH LOC Questions (Provider): 1 NIH LOC Commands (Provider): 0 NIH Best Gaze (Provider): 0 NIH Visual (Provider): 0 NIH Facial Palsy (Provider): 0 NIH Left Arm Motor (Provider): 1 NIH Right Arm Motor (Provider): 0 NIH Left Leg Motor (Provider): 1 NIH Right Leg Motor (Provider): 0 NIH Limb Ataxia (Provider): 1 NIH Sensory (Provider): 0 NIH Best Language (Provider): 0 NIH Dysarthria (Provider): 1 NIH Extinction and Inattention (Provider): 0 NIH Total Score (Provider): 5 ASSESSMENT AND PLAN Neuro: Acute R MCA stroke 2/2 R M1 occlusion s/p TICI 2b revascularization with hemorrhagic conversion, Acute R cerebellar stroke OSH CTH: no hemorrhage or large territory stroke OSH CTA brain/neck: R M1 occlusion CTH 08/03: Acute right basal ganglia hemorrhage with surrounding mass effect and midline shift MRI brain: Hemorrhagic infarct involving the right basal ganglia with surrounding edema. Mass effect with effacement of the right lateral ventricle and midline shift to the left. 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 TTE: EF 65-70% LDL 84 HgbA1c 7.8 -Stroke Etiology (TOAST Criteria): Cardioembolic, AFib not on AC -Antiplatelet plan: ASA 81 mg daily started 08/06 until AC resumed -AC plan: Resume 7 days post-stroke (08/09) -Statin therapy: Atorvastatin 40 mg daily -Blood Pressure goal: <160 Ischemic Stroke Core Measures -NIHSS on admission 14 -Patient has been started on Mechanical (SCD's) and Pharmacological (SQ heparin/Lovenox) DVT prophylaxis. -Antiplatelet therapy has been initiated, ASA 81 mg daily. -Anticoagulation therapy was indicated for this patient, d/t AFib -Patients LDL 84 and HgbA1c 7.8 were checked and the patient will be discharged on Atorvastatin 40 mg daily. -Dysphagia screening ordered, and will be completed prior to patient receiving oral intake. -Stroke education booklet has been ordered and will be provided by the RN that includes both written and verbal education to the patient and family regarding ischemic strokes. We have reviewed the patient's personal modifiable risk factors including: HTN, HLD, DM as well as education on reducing these risk factors -Patient is being assessed for Rehab by PT/OT/Speech and PM&R if indicated. Other problems: Complexity. Hypothyroidism - Continue thyroid replacement. Any conditions listed below are present on admission unless otherwise specified. . HTN, POA: -SBP goal <160 -PRN labetolol/hydralazine -Metoprolol increased to 50 mg BID Paroxysmal AFib, POA: -AC plan as above -Rate controlled on metoprolol Dysphagia: -NETWORK SUPPORT ENGINEER following -NPO, DHT + TF -Failed MBS 08/06 -Patient and spouse agreeable to PEG if no improvement in the coming days HLD, POA: -Atorvastatin 40 mg daily CAD, POA: -ASA resumed 08/06 T2DM, POA: -SSI regular + accuchecks Recent root canal: started by outpatient dentist prior to admission -Continue PCN for 7 days (end date 08/07) CKD Stage 3A, POA: Baseline Cr 1.3 -Avoid nephrotoxins, monitor Hypothyroidism, POA: -Continue home levothyroxine 75 mcg daily Disposition: Lindsay Acuna will likely be discharged to [facility] when medically ready Taran Traore APRN-[employer] MECHANIC 08/06/2024 1:43 PM VITAL SIGNS Temp: [96.5 F (35.8 C)-97.5 F (36.4 C)] 97.5 F (36.4 C) Pulse (Heart Rate): [74-108] 91 Resp Rate: [11-41] 27 BP: (102-192)/(63-110) 110/73 O2 Sat (%): [93 %-98 %] 96 % Oxygen Therapy: Oxygen Therapy O2 Sat (%): 96 % O2 Device: room air Intake/Output: Intake/Output Summary (Last 24 hours) at 08/06/2024 1343 Last data filed at 08/06/2024 1200 Gross per 24 hour Intake 1285.58 ml Output 600 ml Net 685.58 ml LABS/CULTURES Lab Results Component Value Date WBC 12.14 (H) 08/05/2024 HGB 13.9 08/05/2024 HCT 44.0 08/05/2024 PLATELET 216 08/05/2024 MCV 92.2 08/05/2024 Lab Results Component Value Date SODIUM 144 08/05/2024 POTASSIUM 3.9 08/05/2024 CHLORIDE 107 08/05/2024 CO2 27 08/05/2024 BUN 34 (H) 08/05/2024 CREATSERUM 1.19 08/05/2024 GLUCOSE 93 08/05/2024 Lab Results Component Value Date CHOLESTEROL 141 08/02/2024 TRIG 96 08/02/2024 HDL 38 (L) 08/02/2024 LDLCALC 84 08/02/2024 Lab Results Component Value Date HGBA1C 7.8 (H) 08/02/2024 Lab Results Component Value Date ALBUMIN 3.5 08/02/2024 , No results found for: "CPK", "TROP" IMAGING/DIAGNOSTIC STUDIES XR FLUORO MODIFIED BARIUM SWALLOW WITH SPEECH Final Result IMPRESSION: 1. Inconsistent silent and sensate aspiration of thin, mildly thick/nectar, and moderately thick/honey consistencies. 2. No penetration or aspiration with pudding consistency. For additional analysis of the fluoroscopic examination for specific therapeutic recommendations, please see the ferryboat ticket taker report of the speech pathologist. Examination performed by ARCADIO Nicole, under the direct supervision of Gerry Resendez M.D., who was immediately available on site during the examination. I personally viewed and interpreted these images and I have reviewed and approved this report. CARDIOGRAM Final Result CT HEAD WITHOUT CONTRAST Final Result IMPRESSION: Stable exam. ABDOMEN 1 VIEW PORTABLE Final Result IMPRESSION: Enteric tube terminates in the expected region of the proximal second portion of the duodenum. HEAD WITHOUT CONTRAST Final Result IMPRESSION: Acute right basal ganglia hemorrhage with surrounding mass effect and midline shift stable since the MRI from earlier today SPINE CERVICAL WITHOUT CONTRAST Final Result IMPRESSION: Grade 1 anterolistheses of C3 on [...] and approved this report. BRAIN WITHOUT CONTRAST Final Result IMPRESSION: Hemorrhagic infarct involving the right basal ganglia with surrounding edema. Mass effect with effacement of the right lateral ventricle and midline shift to the left. 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 ELBOW RIGHT 2 VIEWS Final Result IMPRESSION: No acute osseous abnormality. HUMERUS RIGHT 2+ VIEWS Final Result IMPRESSION: No acute osseous abnormality. WRIST RIGHT 3+ VIEWS Final Result IMPRESSION: No acute osseous abnormality. CHEST WITH CONTRAST VASCULAR TRAUMA Final Result IMPRESSION: No acute traumatic findings within the chest. I personally viewed and interpreted these images and I have reviewed and approved this report. ABDOMEN/PELVIS WITH CONTRAST VASCULAR TRAUMA Final Result IMPRESSION: 1. No acute traumatic findings within the abdomen or pelvis. Hepatic trauma grade: None. Spleen trauma grade: None. Kidney trauma grade: None. ORBITS WITHOUT CONTRAST Final Result IMPRESSION: Motion compromised exam limiting evaluation for subtle fractures. No displaced large fractures identified Partially residual visualization of right basal ganglia hyperdensity concerning for hemorrhage. SPINE CERVICAL WITHOUT CONTRAST Final Result IMPRESSION: Anterolisthesis of C4 over C5 without any underlying fractures or prevertebral soft tissue edema. Findings are likely chronic in nature. Degenerative changes as described above. No evidence of acute fractures identified FLUOROSCOPY OR (Results Pending) MEDICATIONS Acetaminophen 975 mg Per NG tube Q8H Atorvastatin 40 mg Per NG tube QHS heparin 5,000 Units Subcutaneous Q8H 0800/1600/2200 Insulin regular 9 Units Subcutaneous Q6H Insulin regular Subcutaneous Q6H Levothyroxine 75 mcg Per NG tube Daily Metoprolol 50 mg Per NG tube Q12H Penicillin v potassium 500 mg Per NG tube Q12H Polyethylene glycol 17 g Per NG tube Q12H Senna 17.2 mg Per NG tube Q12H Water liquid (free water) 30 mL Per NG tube Q4H Cosigned by Felicity Castellano MD at 08/12/2024 10:47 AM EDT * PATRIZIA Miner - 08/05/2024 12:00 PM EDT NEUROVASCULAR STROKE SERVICE Daily Progress Note IDENTIFYING INFORMATION Lindsay Acuna MR# [id number] 08/05/2024 HISTORY OF PRESENT ILLNESS Lindsay Acuna is a 78 y.o. female with PMH significant for CAD, HTN, HLD, T2DM, Afib (on Eliquis, although patient reports she has not been taking it) who presents with L hemiplegia, slurred speech. LKW [id number] on 08/02, later found down with slurred speech and L hemiplegia. She presented to [facility] and was seen on Telestroke, NIHSS 12. CTH showed no acute hemorrhage or large territory stroke. CTA with mid R M1 occlusion. She was not given IV TNK due to unclear last dose of Eliquis ( unsure of last dose). She was transferred to [facility] for further management. NIHSS 14 on arrival. Patient reports she does not remember the last time she took her Eliquis. At baseline patient is independent and still drives, mRS 0. Neurosurgery was consulted and patient was taken for mechanical thrombectomy with TICI 2b revascularization. INTERVAL HISTORY 08/05: Transfer to [facility] tomorrow PHYSICAL EXAM Gen: awake, alert, NAD HEENT: normocephalic, no scalp lesions or tenderness Neck: trachea midline No JVD CV: +S1S2, RRR, no m/r/g Lungs: LCTA bilaterally with equal chest rise Abd: soft, nontender, nondistended, +BS x4 quadrants Extrem: Warm and well perfused, no edema, 2+ pulses bilaterally Neuro: Oriented to name and age, KEITA x 4, sensation intact and equal bilaterally to light touch, dysarthria CN II - All visual richards intact CN II/III - PERRLA CN III/IV/ - EOMI CN V - Light touch to face intact in V1-3 CN VII - Facial movement intact and symmetrical bilaterally CN VIII - Hearing intact CN X - Cough present CN XI - muscular movement of shoulders and sternocleidomastoid muscles intact and equal bilaterally CN XII - midline protrusion of tongue MOTOR EXAMINATION: L hemiparesis, LUE/LLE ataxia NIHSS 08/05/2024 Provider NIH Stroke Scale NIH Interval (Provider): daily NIH Level of Conciousness (Provider): 0 NIH LOC Questions (Provider): 1 NIH LOC Commands (Provider): 0 NIH Best Gaze (Provider): 0 NIH Visual (Provider): 0 NIH Facial Palsy (Provider): 0 NIH Left Arm Motor (Provider): 1 NIH Right Arm Motor (Provider): 0 NIH Left Leg Motor (Provider): 1 NIH Right Leg Motor (Provider): 0 NIH Limb Ataxia (Provider): 1 NIH Sensory (Provider): 0 NIH Best Language (Provider): 0 NIH Dysarthria (Provider): 1 NIH Extinction and Inattention (Provider): 0 NIH Total Score (Provider): 5 ASSESSMENT AND PLAN Neuro: Acute R MCA stroke 2/2 R M1 occlusion s/p TICI 2b revascularization with hemorrhagic conversion, Acute R cerebellar stroke OSH CTH: no hemorrhage or large territory stroke OSH CTA brain/neck: R M1 occlusion CTH 08/03: Acute right basal ganglia hemorrhage with surrounding mass effect and midline shift MRI brain: Hemorrhagic infarct involving the right basal ganglia with surrounding edema. Mass effect with effacement of the right lateral ventricle and midline shift to the left. 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 TTE: EF 65-70% LDL 84 HgbA1c 7.8 -Stroke Etiology (TOAST Criteria): Cardioembolic, AFib not on AC -Antiplatelet plan: Not indicated in addition to AC -AC plan: Resume 7 days post-stroke (08/09) -Statin therapy: Atorvastatin 40 mg daily -Blood Pressure goal: <160 Ischemic Stroke Core Measures -NIHSS on admission 14 -Patient has been started on Mechanical (SCD's) and Pharmacological (SQ heparin/Lovenox) DVT prophylaxis. -Antiplatelet therapy has been held due to hemorrhagic conversion. -Anticoagulation therapy was indicated for this patient, d/t AFib -Patients LDL 84 and HgbA1c 7.8 were checked and the patient will be discharged on Atorvastatin 40 mg daily. -Dysphagia screening ordered, and will be completed prior to patient receiving oral intake. -Stroke education booklet has been ordered and will be provided by the RN that includes both written and verbal education to the patient and family regarding ischemic strokes. We have reviewed the patient's personal modifiable risk factors including: HTN, HLD, DM as well as education on reducing these risk factors -Patient is being assessed for Rehab by PT/OT/Speech and PM&R if indicated. Other problems: Complexity. Hypothyroidism - Continue thyroid replacement. Any conditions listed below are present on admission unless otherwise specified. . HTN, POA: -SBP goal <160 -PRN labetolol/hydralazine -Metoprolol 25 mg BID Paroxysmal AFib, POA: -AC plan as above -Rate controlled on metoprolol Dysphagia: -NETWORK SUPPORT ENGINEER following -NPO, DHT + TF -MBS tomorrow HLD, POA: -Atorvastatin 40 mg daily CAD, POA: -Hold ASA for 7 days due to ICH T2DM, POA: -SSI regular + accuchecks CKD Stage 3A, POA: Baseline Cr 1.3 -Avoid nephrotoxins, monitor Hypothyroidism, POA: -Continue home levothyroxine 75 mcg daily Disposition: Lindsay Acuna will likely be discharged to [facility] when medically ready Taran Traore APRN-[employer] MECHANIC 08/05/2024 2:19 PM VITAL SIGNS Temp: [97.8 F (36.6 C)-98.9 F (37.2 C)] 97.8 F (36.6 C) Pulse (Heart Rate): [91-107] 91 Resp Rate: [16-36] 20 BP: (103-181)/(53-108) 159/73 O2 Sat (%): [94 %-96 %] 96 % Weight: [78 kg (172 lb)] 78 kg (172 lb) Oxygen Therapy: Oxygen Therapy O2 Sat (%): 96 % O2 Device: room air Flow (L/min): 4 Oxygen Delivery/Consumption Hemodynamics BSA (Calculated - sq m): 1.9 m2 Intake/Output: Intake/Output Summary (Last 24 hours) at 08/05/2024 1419 Last data filed at 08/05/2024 0830 Gross per 24 hour Intake 520 ml Output 1000 ml Net -480 ml LABS/CULTURES Lab Results Component Value Date WBC 10.61 08/05/2024 HGB 12.6 08/05/2024 HCT 39.6 08/05/2024 PLATELET 198 08/05/2024 MCV 92.1 08/05/2024 Lab Results Component Value Date SODIUM 143 08/05/2024 POTASSIUM 3.8 08/05/2024 CHLORIDE 108 08/05/2024 CO2 25 08/05/2024 BUN 35 (H) 08/05/2024 CREATSERUM 1.45 (H) 08/05/2024 GLUCOSE 242 (H) 08/05/2024 Lab Results Component Value Date CHOLESTEROL 141 08/02/2024 TRIG 96 08/02/2024 HDL 38 (L) 08/02/2024 LDLCALC 84 08/02/2024 Lab Results Component Value Date HGBA1C 7.8 (H) 08/02/2024 Lab Results Component Value Date ALBUMIN 3.5 08/02/2024 , No results found for: "CPK", "TROP" IMAGING/DIAGNOSTIC STUDIES ECHOCARDIOGRAM Final Result CT HEAD WITHOUT CONTRAST Final Result IMPRESSION: Stable exam. ABDOMEN 1 VIEW PORTABLE Final Result IMPRESSION: Enteric tube terminates in the expected region of the proximal second portion of the duodenum. HEAD WITHOUT CONTRAST Final Result IMPRESSION: Acute right basal ganglia hemorrhage with surrounding mass effect and midline shift stable since the MRI from earlier today SPINE CERVICAL WITHOUT CONTRAST Final Result IMPRESSION: Grade 1 anterolistheses of C3 on [...] and approved this report. BRAIN WITHOUT CONTRAST Final Result IMPRESSION: Hemorrhagic infarct involving the right basal ganglia with surrounding edema. Mass effect with effacement of the right lateral ventricle and midline shift to the left. 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 ELBOW RIGHT 2 VIEWS Final Result IMPRESSION: No acute osseous abnormality. HUMERUS RIGHT 2+ VIEWS Final Result IMPRESSION: No acute osseous abnormality. WRIST RIGHT 3+ VIEWS Final Result IMPRESSION: No acute osseous abnormality. CHEST WITH CONTRAST VASCULAR TRAUMA Final Result IMPRESSION: No acute traumatic findings within the chest. I personally viewed and interpreted these images and I have reviewed and approved this report. ABDOMEN/PELVIS WITH CONTRAST VASCULAR TRAUMA Final Result IMPRESSION: 1. No acute traumatic findings within the abdomen or pelvis. Hepatic trauma grade: None. Spleen trauma grade: None. Kidney trauma grade: None. ORBITS WITHOUT CONTRAST Final Result IMPRESSION: Motion compromised exam limiting evaluation for subtle fractures. No displaced large fractures identified Partially residual visualization of right basal ganglia hyperdensity concerning for hemorrhage. SPINE CERVICAL WITHOUT CONTRAST Final Result IMPRESSION: Anterolisthesis of C4 over C5 without any underlying fractures or prevertebral soft tissue edema. Findings are likely chronic in nature. Degenerative changes as described above. No evidence of acute fractures identified FLUOROSCOPY OR (Results Pending) MEDICATIONS Acetaminophen 975 mg Per NG tube Q8H Atorvastatin 40 mg Per NG tube QHS heparin 5,000 Units Subcutaneous Q8H 0800/1600/2200 Insulin regular 9 Units Subcutaneous Q6H Insulin regular Subcutaneous Q6H Levothyroxine 75 mcg Per NG tube Daily Metoprolol 25 mg Per NG tube Q6H Penicillin v potassium 500 mg Per NG tube Q12H Polyethylene glycol 17 g Per NG tube Q12H Senna 17.2 mg Per NG tube Q12H Water liquid (free water) 30 mL Per NG tube Q4H * Queta Gardner, RIKI - 08/05/2024 11:49 AM EDT Acute Care Speech Language Pathology Treatment Diet Recommendations: Recommended Method of Nutrition: NPO, Short-term alternate nutrition Recommended Medication Administration (as appropriate per MD): Non-Oral Assistance: nurse/aide *Frequent oral care at least 3x/day. Oral care has been proven in research to reduce risk of aspiration pneumonia, including for patients who are NPO. *Consider allowance of ice chips following oral care with direct RN supervision to improve oral comfort and reduce risk of disuse atrophy. Oral care has been proven in research to reduce risk of aspiration pneumonia. Best mode of Communication: spoken language Communication Strategies: allow extra time to respond, break tasks into smaller parts Discharge Recommendations: Based on the below outcome measures/assessment score(s), and NETWORK SUPPORT ENGINEER clinical judgment, discharge destination recommendation is: Pending instumental swallow assessment Barriers to discharge home: 1:1 assist needed for IADL's including medication management and finances, Patient needs assistance with IADLs, Patient needs assistance with medication management, Patient needs assistance with self-care for medical condition Supporting factors for discharge setting: Impaired swallow function limiting nutritional status andsafety with oral intake, Impaired cognitive skills limiting independence, Impaired cognitive skillslimiting functional problem solving in immediate environment, Impaired cognitive skills limiting saf ety/insight Acute NETWORK SUPPORT ENGINEER Outcomes Tracking Communicate basic wants and needs?: yes Demo insight/appreciation of deficits?: no Appreciate deficits - Details: able to state deficits, but unaware of specific impact (i.e. states walking is difficult but stated she can get OOB independently) Complete basic problem solving?: unable to determine Basic problem solving - Details: aware of use of call light; further assessment warranted Current therapy frequency recommendation in acute: Speech/Lang/Cog Therapy Frequency: 3 times a week Swallow Therapy Frequency: 5 times a week Clinical Impression: Presumed oropharyngeal dysphagia in the setting of right M1 occlusion. Improved alertness today, but given s/sx of aspiration, recommend MBS for further objective assessment of oropharyngeal swallow function to most appropriately guide NETWORK SUPPORT ENGINEER plan of care. Of note, patient is agreeable to FEES if fluoro unable to schedule MBS. Moderate cognitive-linguistic deficits impacting orientation, attention, processing speed, metacognition, problem solving in the setting of right M1 occlusion. Overall improved orientation and alertness compared to initial session. Also with mild dysarthria, but not impacting patient's ability to co mmunicate with staff or family/friends. Lindsay was independent prior to this hospitalization. Currentdeficits impact her safety and independence. Ongoing NETWORK SUPPORT ENGINEER services are warranted. Subjective information: Awake, alert, repeatedly asking for water. reported she has spoken to 6-7 people over the phone and reported communication partners with no difficulty understanding her. Pain: General Pain Documentation (Adult, OB, Peds) Presence of Pain: denies pain/discomfort Presence of Pain Score (Auto-calculated): 0 Precautions: Patient Safety Communication Prior to Visit: Nursing Lines/Tubes/Drains (Rehab Status): Telemetry, Urinary catheter, Tube feed Existing Precautions/Restrictions: fall Respiratory Status: O2 Sat (%): 95 % (08/05 1000) O2 Device: room air (08/05 0830) Acute NETWORK SUPPORT ENGINEER Goals Plan of Care by Queta Gardner NETWORK SUPPORT ENGINEER at 08/05/2024 11:49 AM Version 1 of 1 Problem: Dysphagia Goal: Ongoing Assessment - Patient will participate in ongoing assessment by accepting various PO consistency trials with appropriate participation/oral acceptance and no significant respiratory complications to determine readiness for diet advancement Outcome: Met Tx: Oral care completed prior to PO trials. She readily accepted x5 ice chips, x3 tsp of thin liquids, x4 straw sips of thin liquids maintaining adequate alertness. Adequate oral phase. She appeared to swallow all trials, demonstrating throat clear/cough with x1/5 ice chips, x2/3 tsp of thin liquids, and x1/4 straw sips of thin liquids. Throat clear/cough may be indicative of airway penetration/aspiration. GOAL MET. NEW GOAL: Problem: Dysphagia Goal: MBS - Patient will participate in Modified Barium Swallow (MBS) Study to objectively assess oropharyngeal swallow function to most appropriately guide NETWORK SUPPORT ENGINEER plan of care Outcome: Ongoing Problem: NETWORK SUPPORT ENGINEER - Cognition Goal: Orientation Log - Patient will recall/implement use of orientation strategies, with minimal cues per assessment protocol, to demonstrate improved awareness and insight as measured by achieving a 27/30 on the O-Log Outcome: Progressing Tx: Patient scored 25/30 on Orientation Log today; significant improvement from initial assessment when she scored 12/30. She most benefits from logical cues to aid with orientation. Patient progressing; continue goal. Goal: Ongoing Assessment - Patient will participate in ongoing dynamic assessment of motor speech, expressive/receptive language, and cognitive- linguistic skills across 1 session to better assess deficits and most appropriately guide NETWORK SUPPORT ENGINEER plan of care Outcome: Met Tx: Noted mild dysarthria, but family reporting this is not impacting her ability to communicate with family/friends. Patient with improved awareness into reason for hospitalization and is able to identify deficits (walking, talking, thinking) but unaware of how deficits impact her (I.e. then says she can get up independently.) She verbalized awareness of use of call light if needing assistance, but would benefit from further assessment re: problem solving and identifying appropriate times to use call light. GOAL MET. NEW GOALS: Goal: Attention: Strategies - Patient will teach back strategies to support attention and generate at least two examples within immediate environment with minimal cues to improve attention/participation in daily activities Outcome: Ongoing Goal: Problem Solving/Insight - Patient will answer personal problem-solving questions related to acute deficits and impact on function in 3/3 opportunities with minimal cueing to promote insight to deficits, safety, and return to independence Outcome: Ongoing Patient Education/Instruction Learners: Patient, Spouse Education provided: Role of this discipline, Plan of care, Dysphagia recommendations/impressions, Communication strategies Teaching method: Verbal Education/Instruction Learner response: Needs review Learning preferences: Auditory Learning considerations: Cognition Stroke education: Role of rehabilitation discipline Plan for next session: 08/05: Good [place] [facility] [place] NETWORK SUPPORT ENGINEER Outcomes: NETWORK SUPPORT ENGINEER Outcomes / Standardized Measures Score The Orientation Log (O-Log) & The Cognitive Log (Cog-Log) Orientation Log City: correct upon logical cueing Kind of Place: correct spontaneously or upon first free recall attempt Name of Hospital: correct spontaneously or upon first free recall attempt Month: correct upon logical cueing Date: correct upon logical cueing Year: correct spontaneously or upon first free recall attempt Day of Week: correct upon logical cueing Clock Time: correct upon logical cueing Etiology / Event: correct spontaneously or upon first free recall attempt Pathology Deficits: correct spontaneously or upon first free recall attempt Total Score: 25 Speech Language Pathologist: RIKI Sharma Time In: 1149 Time Out: 1206 Total Visit Time: 17 minutes Total Treatment Time (skilled, billable minutes): 17 minutes Non-billable assistance during session: NA Assisted by during session: NA PPE used during patient interaction: gloves, facemask Patient location/status at end of session: bed with head of bed elevated Patient alarms at end of session: none altered, wrist restraints, RN aware Needs in reach. NETWORK SUPPORT ENGINEER Evaluation and Treatment Time Speech Therapy - Individual 94001: 8 Swallowing Dysfunction Treatment 58666: 9 Upon discontinuation of Acute Care Speech Therapy Services or patient discharge from the hospital this note represents the current Speech Therapy Discharge Summary * Chela Parvez - 08/05/2024 10:37 AM EDT Placement Plan Expected Discharge Date: TBD Referred Level of Care: IPR Barriers: medical stability, bed availability Current Referrals and Status 1. [facility]- sent; denied (Patient is OON) 2. [facility]- sent 3. [facility]- sent 4. [facility]- sent 5. [facility]- sent 6. [facility] MEDICAL PHYSICS PROFESSOR met with Patient and Spouse at bedside to discuss discharge planning. Patient and spouse were agreeable to SW visit. MEDICAL PHYSICS PROFESSOR discussed therapy recommendations with Spouse for Patient to go to [facility] at discharge. Spouse is agreeable to a referral being sent to [facility]. Referral sent. Spouse requested to speak to SW about assessing Patient for dementia. MEDICAL PHYSICS PROFESSOR and bedside RN encouragedSpouse to discuss with Patient's outpatient provider. Chela Snyder, Social Work Student Available by Secure Chat Cosigned by OWEN Keller at 08/05/2024 11:22 AM EDT * Savana Leung, RD - 08/05/2024 10:10 AM EDT NUTRITION ASSESSMENT Nutrition Recommendations and Plan of Care: 1. Diet: NPO. Advancement per team/NETWORK SUPPORT ENGINEER recommendation 2. Ordered TF: Glucerna 1.5 @ goal rate 55mL/h x 22 hours (holding for synthroid) -Free water per team, suggest minimum of 30ml q 4hr for tube patency 3. Monitor TF/PO intake, bowel function, skin integrity, weight change, lab values. 4. RD to follow up Lindsay Acuna is a 78 y.o. female with hx of CAD, DM, atrial fib presented to OSH for left hemiplegia and slurred speech. Found on the ground per spouse. Initial CT head negative. TCA with mid R M! occulusion and transfered to [facility] for management. She underwent thrombectomy with revascularization. Post op day 3. Left eye / temporal laceration repaired. Nutrition History: Pt currently on room air, TF held at this time for synthroid. TF ordered to goal rate 70mL/h. Priorto admit, pt without significant weight change. Appetite at baseline prior to events precipitating admit. No reported N/V/D at that time. Per team, pt failed bedside swallow. NETWORK SUPPORT ENGINEER consulted for swallow eval. Past History No past medical history on file. No past surgical history on file. has no allergies on file. Diet Order: Current Diet Orders Procedures DIET NPO AND TUBE FEEDING with meds (per DHT) Standing Status: Standing Number of Occurrences: 1 NPO Meds:: with meds per DHT Height: 170.2 cm (5' 7"), Weight: 78 kg (172 lb); IBW- 61.4kg. Currently @ 127% IBW Body mass index is 26.94 kg/m . Wt Readings from Last 10 Encounters: 08/05/24 78 kg (172 lb) 06/26/24 78.9 kg (174 lb)-[facility] 05/31/24 79 kg (174 lb 2.6 oz)-[facility] 11/28/23 80.6 kg (177 lb 9.6 oz)-[facility] 09/29/23 84 kg (185 lb)-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 Tmax: 97.8*F BP: (!) 173/94 Pulse (Heart Rate): 98 Oxygen Therapy: room air Labs reviewed: Na/K+/Phos/Mg/Ca: 143/3.8/2.7/1.8/-- (08/05 26) Bun/Creat/Cl/CO2/Glucose: 35/1.45/108/25/242 (08/05 26) WBC/Hgb/Hct/Plts: 10.61/12.6/39.6/198 (08/05 26) Meds: Vital AF 1.2 Ruiz Stopped (08/05/24 0800) Atorvastatin 40 mg Per NG tube QHS heparin 5,000 Units Subcutaneous Q8H 0800/1600/2200 Insulin regular 9 Units Subcutaneous Q6H Insulin regular Subcutaneous Q6H Levothyroxine 75 mcg Per NG tube Daily Metoprolol 25 mg Per NG tube Q6H Penicillin v potassium 500 mg Per NG tube Q12H Polyethylene glycol 17 g Per NG tube Q12H Senna 17.2 mg Per NG tube Q12H Water liquid (free water) 30 mL Per NG tube Q4H GI: WDL Enteral access: +post-pyloric small bore feeding tube (nasoenteric) Abdominal Xray (08/03): Enteric tube terminates in the expected region of the proximal second portion of the duodenum. 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 REPAIRER Urine: 725mL Skin: Raghu Score: 13 Active Wounds: Wound Sheath Site 08/02/24 1500 Right Radial (3) Wound Abrasion 08/02/24 2109 Left;Upper Face (3) Edema- None Estimated Nutrition Needs: Based on IBW (61.4kg) Estimated Kcals Needs: 0806-5071 kcals (25-30kcals/kg) Estimated Pro Needs: 74-92g Pro (1.2-1.5g/kg) Estimated Fluid Needs: Per MD Nutrition Focused Physical Exam Completed?: completed Subcutaneous Fat Loss: Orbital Region (Orbital Fat Pads): WDL Cheek Region (Buccal Fat Pads): WDL Upper Arm Region (Triceps): WDL Thoracic and Lumbar Region (Ribs, Lower Back, Midaxillary Line): WDL Muscle Wasting: Mandaeism Region (Temporalis Muscle): deferred (lac over eyebrow) Clavicle Bone Region (Pectoralis Major, Trapezius Muscles): WDL Shoulder and Acromion Process Region (Deltoid Muscle): WDL Dorsal Hand (Interosseous Muscle): WDL Scapular Bone Region (Trapezius, Supraspinatus, Infraspinatus Muscles): WDL Anterior Thigh and Patellar Region (Quadriceps Muscles): WDL Posterior Calf Region (Gastrocnemius Muscle): WDL Fluid Evaluation: WDL Malnutrition Statement: Malnutrition criteria met: Does the patient meet criteria for malnutrition: No *Based on The Academy and [employer]EN Indicators to Diagnose Malnutrition (AAIM) criteria (2012) ELVIRA Ho, RD, LD, [facility] Pager: [phone] * Rashad Rg MD - 08/05/2024 9:42 AM EDT 78F admitted to the [facility] with Rt M1 occlusion s/p TICI2b revascularization. This has been complicated by hemorrhagic conversion. She has a background of A Fib on eliquis, CKD 3a, CAD, HTN, DM2, and HLD. Rt M1 occlusion, Rt MCA stroke, hemorrhagic conversion, cerebral edema, mass effect - SBP < 160/MAP > 65 - Normalize Na goals - Most recent head imaging reviewed with stable evolution - Hold AC/AP. Tentative restart AC 1 wk, DVT ppx ok - Statin - Other standard stroke work-up/management ongoing Aspiration risk - currently protecting airway but remains watch - pulm toilet Afib - optimize rate control - AC as above KELI on CKD - non oliguric - continue mayelin-protective measures DM2 - adjust insulin to optimize glycemic control Other supportive care as outlined on same day resident/DAHLIA note. Patient is critically ill due to acute stroke with hemorrhagic conversion requiring intensive neurologic/hemodynamic monitoring intervention to prevent decline. Total critical care time 31min. * Shanna Russ, JASIEL-WOODEN BARREL MECHANIC - 08/05/2024 7:20 AM EDT NEUROCRITICAL CARE DAILY NOTE HOSPITAL VISIT DEMOGRAPHICS Patient: Lindsay Acuna Code status: Full Code Admission date: 08/02/2024 3:02 PM Hospital days: LOS: 3 days CHIEF COMPLAINT Left hemiplegia and slurred speech HISTORY OF PRESENT ILLNESS Lindsay Acuna is a 78 y.o. female with a past history of hypothyroid, CKD stage 3a, CAD, HTN, HLD, T2DM, Afib (on Eliquis, unsure of last dose) who presents with Left hemiplegia and slurred speech. She presented to OSH on 08/02, seen on tele stroke with NIH of 12. Imaging revealed mid R M1 occlusion.She did not receive thrombolytics as unsure of her last Eliquis dose. She was transferred [facility] for thromb[facility]. On arrival her NIH was 14, mRS 0, and she was taken for thrombectomy with NSGY with TICI 2b revascularization. She was admitted to NCCU postop. INTERVAL HISTORY SINCE ADMISSION 08/02/2024: admitted to NCCU 08/03: trauma workup overnight. Hemorraghic conversion of stroke. Failed swallow, place DHT. 08/04: delirium overnight. CTH stable. SBP <160. Start dvt ppx. 08/05: liberalize Na goals, liberalize neuro checks, likely neurovasc transfer, adjust insulin PHYSICAL EXAM GENERAL: Drowsy, no acute distress HEENT: normocephalic, left eye ecchymosis CARDIO: +S1S2, no edema. Tele Afib PULM: equal chest rise; on RA ABDOMINAL: soft, nontender, nondistended, active bowel sounds EXTREMITIES: no wounds or lesions noted, R radial angio site with no ecchymosis VASCULAR: 2+ distal pulses, capillary refill <3 seconds NEURO: Mental status: suspect eyelid apraxia, can overcome with prompting; oriented to person, place and year; disoriented to month and age. good attention. Perseverating at times. Can cross midline Speech/language: dysarthria, comprehension intact Cranial nerves: CN II: Visual richards intact to confrontation. PERRL. 3mm iron pellet tester III, IV and : EOMI. No nystagmus. CN V: Facial sensation intact to light touch. CN VII: dense L facial droop CN VIII: Hearing is grossly intact. CN IX and X: Soft palate elevates symmetrically in the midline CN XI: Shoulder shrug and sternocleidomastoid strength CN XII: Tongue is midline with normal movement; no fasciculations Motor: Normal bulk and tone. LUE weakness Sensation: diminished sensation left side Coordination: No ataxia, dysmetria FTS - Daily NIHSS: NIH Stroke Scale: NIH Level of Conciousness (Provider): 1 NIH LOC Questions (Provider): 2 NIH LOC Commands (Provider): 0 NIH Best Gaze (Provider): 0 NIH Visual (Provider): 0 NIH Facial Palsy (Provider): 2 NIH Left Arm Motor (Provider): 1 NIH Right Arm Motor (Provider): 0 NIH Left Leg Motor (Provider): 0 NIH Right Leg Motor (Provider): 0 NIH Limb Ataxia (Provider): 0 NIH Sensory (Provider): 1 NIH Best Language (Provider): 0 NIH Dysarthria (Provider): 1 NIH Extinction and Inattention (Provider): 0 NIH Total Score (Provider): 8 ASSESSMENT AND PLAN Neuro: (08/02/2024) 3 Days Post-Op R M1 occlusion sp TICI 2b reperfusion after 1 pass mechanical aspiration (08/02) Acute R BG CVA Acute Cytotoxic Cerebral Edema Acute Brain compression Acute tiny Right cerebellum infarct R BG Hemorrhagic conversion - Initial CVA Management: - 08/02 Stroke alert performed; summary of imaging findings: mid R M1 occlusion - no thrombolytics as unsure of last Eliquis dose - 08/02 NSGY consulted for thrombectomy, performed and obtained TICI 2b revascularization - Ongoing CVA management: - Monitor neurostatus with neurochecks Q4H - Prevent cerebral hypoperfusion with goal SBP <160 (see cards) - Imaging: - 08/[address] H: no acute hemorrhage or large territory stroke - 08/02 CTA: R M1 occlusion - 08/03 MRI B: Hemorrhagic infarct involving the right basal ganglia with surrounding edema. Mass effect with effacement of the right lateral ventricle and midline shift to the left. 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 - 08/03 stability CTH: Acute right basal ganglia hemorrhage with surrounding mass effect and midlineshift stable since the MRI from earlier today - 08/04 CTH: stable - defer ASA for now, will plan to anticoagulate day 7 08/10 - Cytotoxic Cerebral Edema Management: - Goal Na 135-145; monitor Na daily Recent Labs 08/02/24 1843 08/03/24 0002 08/03/24 1123 08/04/24 0003 08/04/24 0620 08/04/24 1114 08/04/24 1725 08/05/24 0027 SODIUM 139 138 < > 145 143 141 142 143 OSMOLALITY 299 295 -- 312* -- -- -- 315* CHLORIDE 105 103 -- 109* -- -- -- 108 < > = values in this interval not displayed. - Stroke etiology presumed to be cardioembolic based on the TOAST Criteria. Stroke risk factors include atrial fib., CAD, diabetes, hypercholesterolemia, and hypertension. - Complete TTE (see cards) - LDL level 84 and statin started - HA1C level 7.8 (see endo) - Antiplatelet therapy held as above - VTE prophylaxis: subcutaneous heparin 08/04 - Anticoagulation plan: hold home Eliquis, restarting timing TBD per stroke team. Geriatrics consulted - scheduled tylenol 975 mg TID (ordered) - continue holding home oxybutynin - delirium prevention (ordered) - minimize narcotics, avoid benzos and anticholinergics S/p fall, trauma work up - CT chest: No acute traumatic findings within the chest. - CT a/p: No acute traumatic findings within the abdomen or pelvis. - CT cervical spine: Anterolisthesis of C4 over C5 without any underlying fractures or prevertebralsoft tissue edema. Findings are likely chronic in nature. - CT orbits: No displaced large fractures identified - Right Xray Elbow/humerus/wrist: No acute osseous abnormality. - MRI cervical spine: Grade 1 anterolistheses of C3 on C4 and C4 on C5 favored to be degenerative in nature given facet arthropathies. No MRI evidence of ligamentous injury. Mild bone marrow edema along the inferior endplate of C6. This could either relate to degenerative disc disease or recent trauma. No retropulsion is noted. Moderate spinal canal stenosis at C4-C5. No cord signal abnormality. - 08/03 cleared c-collar Psych: No Current Issues Pulm: No Current Issues O2 Sat (%): 95 % (08/05 599) O2 Device: room air (08/05 599) Flow (L/min): 4 (08/05 1999) - Goal SpO2 >92%; wean FiO2 as tolerated - HOB > 30 degrees, aggressive pulm edema, OOB as toleratd - [id number], encourage pulmonary toileting Cards: Essential HTN HLD Atrial Fibrillation CAD RVR Temp: [97.8 F (36.6 C)-98.9 F (37.2 C)] 97.8 F (36.6 C) Pulse (Heart Rate): [87-107] 99 Resp Rate: [16-37] 34 BP: (103-181)/(53-108) 141/89 O2 Sat (%): [94 %-97 %] 95 % - Goal SBP <160, MAP >65 HTN - Home antihypertensives: not filling home atenolol 50 mg daily and Ramipril 20 mg daily - Current regimen: - PRN labetalol and hydralazine - 08/03 metoprolol 25 mg Q6H (transitioned to metop from coreg for better rate control) HLD - Statin Therapy: resume home atorvastatin 80 mg (not filling) - resume atorvastatin 40 mg daily - LDL: 84 Afib w/ RVR - hold home Eliquis 2.5 mg BID (has been filling) - 08/03 Metoprolol 5 mg IVP x2, Beta shea as above for rate control - plan AC resume day 7 Diagnostics - 08/05 TTE: EF 65-70% - 08/02 troponin: 9 - 08/02 ECG: Afib - 08/02 BNP: 1,115 Renal/: CKD stage 3a Urinary incontinent Hypocalcemia Fluid Balance: - Goal: euvolemia - Maintenance: none - remove gallegos Intake/Output Summary (Last 24 hours) at 08/05/2024 0724 Last data filed at 08/05/2024 0500 Gross per 24 hour Intake 850 ml Output 725 ml Net 125 ml Urinary incontinent - hold home oxybutynin CKD - baseline ~1.3 - Daily Chem 10; electrolytes replaced per NCCU protocol Recent Labs 08/04/24 0003 08/04/24 0620 08/04/24 1725 08/05/24 0027 SODIUM 145 < > 142 143 POTASSIUM 4.0 -- -- 3.8 CHLORIDE 109* -- -- 108 CO2 24 -- -- 25 BUN 26* -- -- 35* CREATSERUM 1.47* -- -- 1.45* PHOSPHORUS 2.8 -- -- 2.7 MAGNESIUM 1.9 -- -- 1.8 ICA 4.80 -- -- 4.69 < > = values in this interval not displayed. 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 Recent Labs 08/02/24 1843 ALBUMIN 3.5 BILIDIRECT 0.1 BILITOTAL 0.6 ALKPHOS 117 ALT 10 AST 17 TP 6.3* - DIET NPO AND TUBE FEEDING with meds (per DHT) - [place] Swallow Screening Result: failed=NPO Bowel regimen: - Last Bowel Movement: (prior to admission) - Senna 17.2 mg Q12H, miralax BID, suppository PRN Stress ulcer prophylaxis: - none Dysphagia - DHT placed - NETWORK SUPPORT ENGINEER following; NPO continue following, on TF - aware pt may need PEG pending course Endo: DM Type 2 Hypothyroid DM - Goal blood glucose 140-180 - home regimen: Glimepiride 2 mg daily, metformin 1000 mg daily - current regimen: - Insulin high SSI regular Q6H - scheduled insulin 9 units Q6H for tube feed coverage. (Increased from 6u 08/05) - A1c: 7.8 Recent Labs 08/02/24 1843 08/02/24 2325 08/04/24 1116 08/04/24 1724 08/05/24 0017 08/05/24 0027 GLUCOSE 210* < > 235* 227* 228* 242* HGBA1C 7.8* -- -- -- -- -- < > = values in this interval not displayed. Hypothyroid - continue home synthroid 75 mcg daily ID: No Current Issues Recent Labs 08/04/24 0003 08/05/24 0027 WBC 11.41* 10.61 - Temp (24hrs), Av.3 F (36.8 C), Min:97.8 F (36.6 C), Max:98.9 F (37.2 C) - PRN Tylenol for T>100.4F - Most recent and positive cultures: Date Collected Source Result Date Finalized 08/02 Staph nasal swab Negative 08/02 Urine cx No reflex to culture - Antiinfectives: Start Date Antiinfective Coverage Course Length Stop Date 08/03 Unasyn Recent root canal (Ordered IV till PO access obtained) 08/03 08/01 (started outpatient by dentist) PCN Recent root canal, continuation of home med 7 days 08/07 Heme/Onc: No Current Issues Recent Labs 08/02/24 1843 08/03/24 0002 08/04/24 0003 08/05/24 0027 WBC 8.16 < > 11.41* 10.61 RBC 4.76 < > 4.43 4.30 HGB 14.0 < > 12.7 12.6 HCT 43.8 < > 40.8 39.6 PLATELET 245 < > 228 198 PT 13.9 -- -- -- PTT 26.9 -- -- -- INR 1.1 -- -- -- < > = values in this interval not displayed. - Goal plt >100, INR <1.4, Hgb >7 - OR EBL: minimal DVT prophylaxis: - chemical dvt ppx: subcutaneous heparin started 08/04 Musc: No Current Issues - PT/OT consulted and following - Current Activity Order: AAT Fall Risk: - Assessed for patient fall risk and discussed safety measures during rounding. Social/Dispo: - Code status: Full Code - 08/02: Medications reconciled - Discharge planning per PCRM/SW. Complexity. Any conditions listed below are present on admission unless otherwise specified. . ICU Checklist: [x] Assess pain Presence of Pain: reports pain/discomfort Presence of Pain Score (Auto-calculated): 0 [x] Both SAT & SBT [x] Choice of analgesia/ sedation See neuro [x] Delirium Overall CAM-ICU: Positive [x] Early mobility PT/OT consulted?: Yes CURRENT AM-PAC Mobility Raw Score: 10 CURRENT AM-PAC Mobility Functional Limitation: 76.75% Impaired in Basic Mobility [x] Family Engagement Primary Emergency Contact: Ike Acuna, Last updated: 08/05 at bedside updated. [x] Prophylaxis VAP: N/A Stress ulcer prophylaxis: not indicated DVT: subcutaneous heparin [x] Lines Clothier: n/a Gallegos: remove Rectal tube: n/a Enteral access: inserted 08/03, [ ] gastric; [x ] post-pyloric CENTRAL LINES: Central Line Indications: No line currently in place Can line/s be removed today? No line in place at this time Dressing/s Clean/Dry/Intact?: No line currently in place Discussed with NCCU Attending, PATRIZIA Guaman 08/05/24 7:24 AM Check the treatment team to find the assigned neurocritical care provider (resident, fellow, SISAL OPERATOR, orPA) or page/call the corresponding number below NCC1 (Beds [phone]): [facility] # [phone], pager #[phone] NCC2 (Beds 2697-1368, [address], and overflow): [facility] #: [phone], pager #[phone] * Florinda Velasquez, PT - 08/04/2024 1:36 PM EDT Acute Physical Therapy Evaluation Prior Gross Functional Mobility: independent Current AM-PAC score(s): CURRENT AM-PAC Mobility Raw Score: 10 Based on the above AM-PAC score(s) and PT clinical judgment, patient is a good candidate for discharge to Inpatient Rehab Facility Supporting Factors (would benefit from skilled therapy services): Patient status is anticipated to be appropriate to tolerate inpatient rehab therapy requirements at time of discharge from acute care, Decreased endurance necessitating skilled therapy services, but able to tolerate therapy requiremen ts for inpatient rehab, Assistance needed with functional mobility Mobility equipment available at home: rollator, straight cane ADL equipment available at home: shower chair Equipment needed for discharge: to be determined Current therapy frequency recommendation in acute: PT Therapy Frequency: 5 times a week Precautions and Weightbearing Status: Existing Precautions/Restrictions: fall Telemetry, Urinary catheter, Tube feed Patient Safety Communication Prior to Visit: Nursing Subjective: pt was agreeable to participate, fixated on wanting her scissors (daughter present and reports there are no missing scissors) Pain: General Pain Documentation (Adult, OB, Peds) Presence of Pain: denies pain/discomfort Presence of Pain Score (Auto-calculated): 0 Home Setting Residence: House Lives With: spouse Patient receives help from : none Patient reported support for discharge plannin hour supervision First floor setup: bedroom, walk-in shower, grab bars Number of stairs to enter home: 3 Number of stairs in home: 0 Mobility Equipment Available: rollator, straight cane ADL Equipment Available: shower chair Previous Level of Function Gross Functional Mobility: independent Assistive Device: none used Prior level ADL Overview: Independent with all ADLs Dominant Hand: Right Bed Mobility: independent Transfers: independent Stairs: independent Ambulation: independent with all needs Prior Level of Function Details: x1 recent fall, IADL independent (drives, shops) Vocation: retired Objective/Observation: Vitals/Vitals Responses to Treatment: WFL O2 Device: room air Cognition Overall Cognitive Status: Impaired Arousal/Alertness: Delayed responses to stimuli Orientation Level: Oriented to person, Oriented to place, Oriented to time Following Commands: Follows one step commands with increased time, Follows one step commands with repetition Safety Judgment: Decreased awareness of need for assistance, Decreased awareness of need for safety Vision Screen Currently wearing corrective lenses: No Subjective Patient Complaints: Blurry vision (right eye only) Clinical Observations: left inattention but able to scan all planes Speech Speech: slurred speech Hearing Hearing: no gross deficits noted Extremity Assessments: RLE Assessment RLE Assessment: Within Functional Limits LLE Assessment Left LE Assessment Details: knee and ankle 3+ to 4-/5 grossly, hip flexion 2/5 grossly Sensation Overall Sensation: Intact Proprioception Proprioception: intact Skin Integrity Skin Integrity Description: WFL Edema Edema: none noted Mobility Assessment: Supine to Sit Mobility [place] Level: Supine->Sit: moderate assist (50% patient effort) Physical Assist: Supine->Sit: 2 person assist Bed Features/Set-up: Supine->Sit: Head of bed elevated, Use of bed rail Skilled Rationale: Positioning, Sequencing, Hand placement, Verbal cues Skilled Intervention/Details: Supine->Sit: increased time and cues Balance: Sitting Balance Static Sitting-Level of Assistance: Contact guard Dynamic Sitting-Level of Assistance: Contact guard Skilled Rationale: Positioning, Sequencing, Hand placement, Verbal cues Standing Balance Static Standing-Level of Assistance: Moderate assistance, 2-person assist Standing-Balance Support: Gait belt, Hand-held assist Skilled Rationale: Positioning, Sequencing, Hand placement, Tactile cues Standing Balance Skilled Intervention/Details: Static standing EOB Transfer Assessment: Sit to Stand Transfer [place] Level: Sit->Stand: moderate assist (50% patient effort) Physical Assist: Sit->Stand: 2 person assist Assistive Device: Sit->Stand: gait belt, hand held assist Skilled Rationale: Positioning, Sequencing, Hand placement, Verbal cues Skilled Intervention/Details: Sit->Stand: x 1 from EOB Bed-Chair Transfer [place] Level: Bed<->Chair: moderate assist (50% patient effort) Physical Assist: Bed<->Chair: 2 person assist Assistive Device: Bed<->Chair: gait belt, hand held assist Skilled Rationale: Positioning, Sequencing, Hand placement, Verbal cues Skilled Intervention/Details: Bed<->Chair: x 2-3 steps from bed to chair Gait/Functional Mobility: Stairs: Outcome Score(s): CURRENT [facility] Basic Mobility Inpatient Short Form Turning over in bed: 2 - A Lot of Assistance Moving from lying on back to sittin - A Lot of Assistance Moving to and from bed to chair: 2 - A Lot of Assistance Sitting/standing from chair: 2 - A Lot of Assistance Walk in hospital room: 1 - Total Assistance Climbing 3-5 steps with a railin - Total Assistance CURRENT [facility] Mobility Raw Score: 10 CURRENT [facility] Mobility Functional Limitation: 76.75% Impaired in Basic Mobility Interventions: Assessment & Plan: Patient was admitted for Acute ischemic right MCA stroke [I63.511] and seen for therapy evaluation related to deficits in functional mobility . Exam findings include impairments in: Strength, Coordination, Balance, Posture, Transfers, Gait/Locomotion, Motor control, Aerobic capacity/endurance, Neuromotor development and sensory integration. These impairments contribute to functional limitations including Ambulation/locomotion pain, Decreased ambulation distance/endurance, Difficulty stair climbing/descent, Increased fall risk, Limited standing tolerance, Limited sitting tolerance, Difficulty with bed mobility, Difficulty with transfers, Decreased functional mobility. Current clinical presentation is Evolving - changing/inconsistent clinical characteristics (Moderate). Patient history factors impacting Plan Of Care include . Patient will benefit from skilled physical therapy to address these impairments, functional limitations, and participation restrictions andhas good rehab potential to achieve therapy goals. Planned Therapy Interventions: balance training, bed mobility training, endurance, functional activity tolerance, gait training, neuromuscular re- education, postural re-education, strengthening, transfer training Patient Instruction/Education this session: Learners: Patient, Adult Child/Children (daughter) Education provided: Activity outside of therapy, Discharge recommendations, Fall precautions Teaching method: Verbal Education/Instruction Learner response: Applies knowledge Learning preferences: Auditory Learning considerations: No barriers/ready to learn (daughter) Plan for next session: Continue to progress OOB activity, sit to stand and transfers Acute PT Goals Plan of Care by Florinda Velasquez PT at 08/04/2024 1:36 PM Version 1 of 1 Problem: PT - General Goals Goal: Supine <-> Sit Transfers - Patient will perform supine to/from sit transfers with contact guard assistance and with use of hospital bed features in order to improve functional mobility and safety. Outcome: Ongoing Goal: Sit <-> Stand Transfers - Patient will perform sit to/from stand transfers with minimalassistance and least restrictive device in order to improve functional mobility and safety. Outcome: Ongoing Goal: Standing Endurance/Balance - Patient will perform standing balance tasks for 5 min with minimal assistance and least restrictive device Outcome: Ongoing Goal: Stand/Squat Pivot Transfers - Patient will perform stand pivot transfer to/from bed/chair/commode with minimal assistance and least restrictive device in order to improve functional mobility and safety. Outcome: Ongoing PT treatment consisted of the following to progress towards the above goal(s): PT Evaluation and Treatment Time PT Evaluation (Moderate) Time Entry: 18 Evaluating Therapist: Florinda Velasquez PT Additional Details: PT Co-Eval/Treatment Information Co-evaluation/co-treatment performed?: Yes, simultaneous billable skilled care was necessary due tomedical complexity and functional deficits Other discipline: OT Rationale for need to co-eval/treat: cognition, coordination, postural control Co-treatment goal focus: balance, mobility Evaluation Complexity Components History: Moderate (1-2 personal factors and/or comorbidities) Body Systems Review: Moderate (Addressing a total of 3 or more elements) Clinical Presentation: Evolving - changing/inconsistent clinical characteristics (Moderate) Clinical Decision Making Complexity: Moderate Time In: 918 Time Out: 936 Total Visit Time: 18 minutes Total Treatment Time (skilled, billable minutes): 18 minutes PPE used during patient interaction: gloves Patient location at end of session: chair Alarms on at end of session: chair alarm, RN aware, none altered Needs in reach. Upon discontinuation of Acute Care Physical Therapy Services or patient discharge from the hospitalthis note represents the current Physical Therapy Discharge Summary. * Dona Sharp OT - 08/04/2024 12:18 PM EDT Acute Occupational Therapy Evaluation Prior Gross Functional Mobility: independent Current AM-PAC score(s): CURRENT AM-PAC Activity Raw Score: 11 Based on the above AM-PAC score(s) and OT clinical judgment, discharge destination recommendation is: Inpatient Rehab Facility Supporting Factors (would benefit from skilled therapy services): Patient status is anticipated to be appropriate to tolerate inpatient rehab therapy requirements at time of discharge from acute care, Patient has appropriate assistance and setup at home for ultimate discharge to home once patient has progressed functionally following inpatient rehab, Recent decline in self-care abilities Mobility equipment available at home: rollator, straight cane ADL equipment available at home: shower chair Equipment recommendations for discharge: to be determined Equipment issued: foam sponge Current therapy frequency recommendation(s) in acute: 5 times a week Activity Recommendations for outside of rehab session: x2 assist pivot to right Precautions and Weightbearing Status: OT Existing Precautions/Restrictions: fall Telemetry, Urinary catheter, Tube feed Patient Safety Communication Prior to Visit: Nursing Subjective: Pt looking for her scissors. Pleasant and participates in therapy tasks, but frequently perseverates on locating her sewing scissors. Pain: General Pain Documentation (Adult, OB, Peds) Presence of Pain: denies pain/discomfort Presence of Pain Score (Auto-calculated): 0 Home Setting Residence: House Lives With: spouse Patient receives help from : none Patient reported support for discharge plannin hour supervision First floor setup: bedroom, walk-in shower, grab bars Number of stairs to enter home: 3 Number of stairs in home: 0 Mobility Equipment Available: rollator, straight cane ADL Equipment Available: shower chair Previous Level of Function Gross Functional Mobility: independent Assistive Device: none used Prior level ADL Overview: Independent with all ADLs Dominant Hand: Right Bed Mobility: independent Transfers: independent Stairs: independent Ambulation: independent with all needs Prior Level of Function Details: x1 recent fall, IADL independent (drives, shops) Vocation: retired Objective/Observation: Vitals/Vitals Responses to Treatment: VSS O2 Device: room air Vision Screen Currently wearing corrective lenses: No Subjective Patient Complaints: (right eye blurred) Clinical Observations: left inattention Visual Impairments Observed?: Yes Further visual assessment recommended: yes Speech Speech: no gross deficits noted Hearing Hearing: no gross deficits noted Cognition Overall Cognitive Status: Impaired Arousal/Alertness: Appropriate responses to stimuli Orientation Level: Oriented to person, Oriented to time, Oriented to place Following Commands: Follows one step commands with increased time, Follows one step commands with repetition Safety Judgment: Decreased awareness of need for safety Attention Span: Difficulty attending to directions, Difficulty dividing attention ADLs: ADL Assessment: Toileting Deficit, LE Dressing Deficit, Bathing Deficit, Grooming Deficit, UE Dressing Deficit, Eating Deficit ADL Anticipated Performance (ADLs not directly observed this session): Bathing, Toileting Eating Assistance: Total Grooming Assistance: Moderate Grooming Location: edge of bed Grooming Deficit: Increased time to complete, Activity tolerance, Generalized weakness, Balance, Retrieval of items, Manipulation of items, Bringing items to mouth/face Grooming Skilled Rationale (Verbal/Tactile/Visual/Demonstration): Facilitate positioning, Techniqueof activity, Setup, Supervision Grooming Intervention/Details: utilized LUE with cues, hand over hand to thoroughly complete but was able to bring to face with increased time and compensatory patterns of movement Bathing Assistance: Maximal UE Dressing Assistance: Moderate LE Dressing Assistance: Maximal Toilet Assistance: Total Extremity Assessments: RUE Assessment RUE Assessment: Within Functional Limits, Strength WFL LUE Assessment LUE Assessment: AROM Impaired, Strength Impaired Left UE Assessment Details: personal inattention LUE Strength L Shoulder Flexion: 2-/5 L Elbow Flexion: 4/5 L Elbow Extension: 4/5 Balance: Sitting Balance Static Sitting-Level of Assistance: Contact guard Dynamic Sitting-Level of Assistance: Contact guard Skilled Rationale: Positioning, Hand placement, Verbal cues, Full extension to upright positioning/posture, Finding/maintaining midline positioning, Technique of activity Standing Balance Static Standing-Level of Assistance: Moderate assistance, 2-person assist Dynamic Standing-Level of Assistance: Moderate assistance, 2-person assist Standing-Balance Support: Hand-held assist, Gait belt Skilled Rationale: Positioning, Hand placement, Verbal cues, Technique of activity Neuro: Sensation Overall Sensation: Intact Skin and Edema: Mobility Assessment: Supine to Sit Mobility [place] Level: Supine->Sit: moderate assist (50% patient effort) Physical Assist: Supine->Sit: 2 person assist Bed Features/Set-up: Supine->Sit: Head of bed elevated Skilled Rationale: Positioning, Hand placement, Verbal cues, Technique of activity Transfer Assessment: Sit to Stand Transfer [place] Level: Sit->Stand: moderate assist (50% patient effort) Physical Assist: Sit->Stand: 2 person assist Assistive Device: Sit->Stand: gait belt, hand held assist Skilled Rationale: Positioning, Hand placement, Verbal cues, Technique of activity Stand to Sit Transfer [place] Level: Stand->Sit: moderate assist (50% patient effort) Physical Assist: Stand->Sit: 2 person assist Assistive Device: Stand->Sit: hand held assist Skilled Rationale: Positioning, Hand placement, Verbal cues, Arm in arm, Controlled descent for sitting Bed-Chair Transfer [place] Level: Bed<->Chair: moderate assist (50% patient effort) Physical Assist: Bed<->Chair: 2 person assist Assistive Device: Bed<->Chair: gait belt, hand held assist Skilled Rationale: Arm in arm, Patellar block, Technique of activity Skilled Intervention/Details: Bed<->Chair: LLE weakness/blocking of patella with transfer, pivot to right Functional Mobility: Outcome Score(s): CURRENT AM-[facility] Daily Activity Inpatient Short Form Putting on/Taking Off Lower Body Clothin - A Lot of Assistance Bathin - A Lot of Assistance Toiletin - Total Assistance Putting on/Taking Off Upper Body Clothin - A Lot of Assistance Groomin - A Little Assistance Eatin - Total Assistance CURRENT AM-PAC Activity Raw Score: 11 CURRENT AM-PAC Activity Functional Limitation/Modifier: 70.42% Currently Impaired in Daily Activity- CL Interventions: Daughter education on promotion of attention to left as well as HEP/foam block use on LUE. Brief education, will benefit from continued ed. Assessment & Plan: Patient was admitted for RMCA - 08/02/24: going to thrombectomy, R M1 on CTA. TICI 2b. Admit to [facility] post-op 08/03: Hemorrhagic conversion of stroke on MRI, DHT placed, trauma workup and seen for therapy evaluation related to ADL deficits, mobility concerns. Exam findings include impairments in: attention, balance, cognitive impairments, coordination, endurance, ergonomics and body mechanics, joint integrity and mobility, neuromotor development, ROM, transfers, strength, vision. These impairments contribute to occupational performance limitations including bathing, dressing, grooming, toileting, functional mobility, ADL transfers. The following factors impact the plan of care: No past medical history on file. Psychosocial Factors Positive indicators for performance: Adequate support system, Positive interpersonal relationships Possible barriers for performance: None Patient will benefit from skilled occupational therapy to address these impairments, occupational performance limitations, and participation restrictions. Patient's rehab potential is: excellent. Planned Therapy Interventions (OT Eval): ADL retraining, IADL retraining, balance training, bed mobility training, caregiver training/education, fine motor coordination training, functional activity tolerance, ROM (range of motion), strengthening, transfer training, neuromuscular re-education Patient Instruction/Education this session: Learners: Patient, Adult Child/Children Education provided: Activity outside of therapy, Neuromuscular re-education Teaching method: Teach back Learner response: Needs review Learning preferences: Auditory Learning considerations: Cognition Plan for next session: ADL routines, transfer progression, scanning, NMR Acute OT Goals Plan of Care by Dona Sharp OT at 08/04/2024 9:18 AM Version 1 of 1 Problem: OT - ADLs Goal: Lower Body Dressing - Patient will complete lower body dressing tasks with supervision using adaptive equipment/compensatory strategies as needed for improved ability to complete self-care activities. Outcome: Ongoing Goal: Grooming - Patient will complete grooming in standing with supervision for improved ability to safely complete ADLs. Outcome: Ongoing Problem: OT - Transfers Goal: Transfers Toilet/ Bedside Commode - Patient will transfer to/from toilet/bedside commode withsupervision for improved ability to safely complete ADLs. Outcome: Ongoing Problem: OT - Strength/ROM Goal: Neuro Re-education - Patient will participate in neuro re-ed of left upper extremity with supervision and 90% accuracy for improved functional use in ADLs. Outcome: Ongoing Problem: OT - Cognition Goal: Cognition Simple ADL - Patient will demonstrate improved cognition, completing simple ADL task for 7 minutes with no greater than min cues required to maintain attention. Outcome: Ongoing Problem: OT - Vision Goal: Visual Scanning ADL - Patient will employ use of visual compensatory strategies with no greater than min cues in 5/5 trials to increase participation and safety in ADLs. Outcome: Ongoing OT treatment consisted of the following to work and progress towards the above goal(s): OT Evaluation and Treatment Time OT Evaluation (High) Time Entry: 18 Evaluating Therapist: Dona Sharp OT Additional Details: OT Co-Eval/Treatment Information Co-evaluation/co-treatment performed?: Yes, simultaneous billable skilled care was necessary due tomedical complexity and functional deficits Other discipline: PT Rationale for need to co-eval/treat: postural control, coordination OT Evaluation Complexity Occupational Profile and Client History: High - extensive history Assessment of Occupational Performance: High (5 or more performance deficits) Clinical Decision/Performance Deficits: High (comprehensive assessments w/multiple treatment options) Time In: 917 Time Out: 935 Total Visit Time: 18 minutes Total Treatment Time (skilled, billable minutes): 18 minutes PPE used during patient interaction: gloves Patient location at end of session: chair Alarms on at end of session: chair alarm Needs in reach. Upon discontinuation of Acute Care Occupational Therapy Services or patient discharge from the hospital this note represents the current Occupational Therapy Discharge Summary. * Richard Mejia MD - 08/04/2024 11:45 AM EDT I have independently seen and examined the patient on 08/04/24. I agree with the history, examination, assessment and plan as documented by the SISAL OPERATOR with my changes/additions added. Patient is a 78 yo F with a hx of HTN, HLD, DM2, afib on Eliquis, CKD stage 3a, CAD who presented with L sided weakness, facial droop, slurred speech and R gaze preference. She did not receive lytics. CTA with R M1 occlusion s/p MT with TICI 2b revascularization Interval History: Delirious overnight, CTH stable Scheduled Meds: Atorvastatin 80 mg Per NG tube QHS Insulin regular Subcutaneous Q6H Levothyroxine 75 mcg Per NG tube Before BKF Metoprolol 25 mg Per NG tube Q6H Penicillin v potassium 500 mg Per NG tube Q12H Polyethylene glycol 17 g Per NG tube QHS Senna 17.2 mg Per NG tube Q12H Water liquid (free water) 30 mL Per NG tube Q4H Labs: Chem 7: Lab Results Component Value Date SODIUM 143 08/04/2024 POTASSIUM 4.0 08/04/2024 CHLORIDE 109 (H) 08/04/2024 CO2 24 08/04/2024 GLUCOSE 235 (H) 08/04/2024 BUN 26 (H) 08/04/2024 CREATSERUM 1.47 (H) 08/04/2024 BUNCREARATIO 18 08/04/2024 OSMOLALITY 312 (H) 08/04/2024 GFR 36 (L) 08/04/2024 CBC: Lab Results Component Value Date WBC 11.41 (H) 08/04/2024 HGB 12.7 08/04/2024 HCT 40.8 08/04/2024 PLATELET 228 08/04/2024 MCV 92.1 08/04/2024 Physical Exam: Vital Signs: Blood pressure 129/60, pulse 101, temperature 98.5 F (36.9 C), temperature source Axillary, resp. rate 19, height 1.702 m (5' 7"), weight 78.3 kg (172 lb 9.9 oz), SpO2 95%. General: no acute distress HEENT: normocephalic, atraumatic Cardiovascular: +S1S2, irregular rhythm, no edema, + distal pulses, capillary refill < 3 seconds Pulmonary: Clear to auscultate bilaterally Abdominal: soft, nontender, nondistended, active bowel sounds Extremities: no wounds nor lesions Skin: no rash or obvious skin abnormalities Neurology: awake and alert, follows commands, R gaze preference, L facial droop, LUE 3/5, LLE 3/5, full strength on the R, hemiextenciton on the L Assessment and Plan: Neurology: Acute R MCA ischemic stroke in the setting of R M1 occlusion - Stroke etiology cardio embolic due to afib Hemorrhagic transformation in the R BG with surrounding cerebral edema, mass effect and MLS of the brain - Did not receive lytics. S/p MT with TICI 2b revascularization - Most recent CTH is stable - Neurochecks with NIHSS - SBP goal <160, MAP >65, Na goal 140-150, PRN 3% HTS to achieve goal - Hold ASA in the setting of ICH x 7 days - Statin - PT/OT/NETWORK SUPPORT ENGINEER evaluation Pulmonary: No acute issues, appears to protect her airways. Patient remained under close watch Oxygen Therapy O2 Sat (%): 95 % O2 Device: room air Cardiovascular: Essential HTN Chronic afib with RVR, CAD, HLD - SBP goal< 160, MAP goal >65. PRN Hydralazine and Labetalol. Off Nicardipine gtt - HR is well controlled on metoprolol, continue - Hold ASA as above x 7 days - Continue statin - Obtain TTE Nephrology: CKD stage 3a - KELI on CKD, likely pre-renal due to hemodynamic changes - SBP goal <160, MAP >65, avoid nephrotoxic agents. Close watch - Maintain euvolemia GI/Nutrition: TF for nutrition - Bowel regimen to prevent constipation Endocrinology: DM2 with hyperglycemia - Goal blood glucose 140-180. SSI, A1 of 7.8 - Levothyroxine for hypothyroidism ID: Afebrile - PRN Tylenol for T>100.4F Continue penicillin for recent root canal, total of 7 days until 08/07. Started by her OP dentist Heme/Onc: - Goal plt >100, INR <1.4, Hgb >7 - VTE prophylaxis: - SCDs - Chemical prophylaxis - Start subcutaneous heparin Acute deconditioning - PT/OT consulted and following - Mobility as tolerated Additional details and other supportive care as per the SISAL OPERATOR note from the same day This patient is critically ill, unstable and is at high risk of imminent or life threatening deterioration due to acute R MCA ischemic stroke, cytotoxic cerebral edema, hemorrhagic transformation in the R BG, mass effect with MLS of the brain, HTN, afib with RVR requiring close neurologic and hemodynamic monitoring to prevent clinical deterioration, hyperosmolar therapy. I personally spent 32 minutes in the intensive care unit providing critical care services to the patient today [facility], teaching and other care providers. Management of the above was performed. My time managing this critically ill patient included review of interval history, laboratories, radiology and cons ultation reports; performing a physical examination; discussing the patient with the multi-disciplinary team and managing life sustaining therapies to prevent imminent clinical deterioration. Richard Mejia MD Neurocritical Care Attending * Balbir Mccoy APRN-[facility] - 08/04/2024 7:44 AM EDT NEUROCRITICAL CARE DAILY NOTE HOSPITAL VISIT DEMOGRAPHICS Patient: Lindsay Acuna Code status: Full Code Admission date: 08/02/2024 3:02 PM Hospital days: LOS: 2 days CHIEF COMPLAINT Left hemiplegia and slurred speech HISTORY OF PRESENT ILLNESS Lindsay Acuna is a 78 y.o. female with a past history of hypothyroid, CKD stage 3a, CAD, HTN, HLD, T2DM, Afib (on Eliquis, unsure of last dose) who presents with Left hemiplegia and slurred speech. She presented to OSH on 08/02, seen on tele stroke with NIH of 12. Imaging revealed mid R M1 occlusion.She did not receive thrombolytics as unsure of her last Eliquis dose. She was transferred to [facility] for thrombectomy. On arrival her NIH was 14, mRS 0, and she was taken for thrombectomy with NSGY with TICI 2b revascularization. She was admitted to [facility] postop. INTERVAL HISTORY SINCE ADMISSION 08/02/2024: admitted to [facility]U 08/03: trauma workup overnight. Hemorraghic conversion of stroke. Failed swallow, place DHT. 08/03: delirium overnight. CTH stable. SBP <160. Start dvt ppx. PHYSICAL EXAM GENERAL: Alert, no acute distress, OOB in chair HEENT: normocephalic, left eye ecchymosis CARDIO: +S1S2, no edema. Tele Afib PULM: equal chest rise; on RA ABDOMINAL: soft, nontender, nondistended, active bowel sounds EXTREMITIES: no wounds or lesions noted, R radial angio site with no ecchymosis VASCULAR: 2+ distal pulses, capillary refill <3 seconds NEURO: Mental status: alert; oriented to person, month and year; disoriented to place and age. good attention. Speech/language: dysarthria, comprehension intact Cranial nerves: CN II: Visual richards intact to confrontation. PERRL. 3mm iron pellet tester III, IV and : EOMI. No nystagmus. CN V: Facial sensation intact to light touch. CN VII: facial droop CN VIII: Hearing is grossly intact. CN IX and X: Soft palate elevates symmetrically in the midline CN XI: Shoulder shrug and sternocleidomastoid strength 5/5 RUE, 2/5 LUE CN XII: Tongue is midline with normal movement; no fasciculations Motor: Normal bulk and tone. LUE weakness Sensation: Extremity sensation intact throughout. Coordination: No ataxia, dysmetria FTS - Daily NIHSS: NIH Stroke Scale: NIH Level of Conciousness (Provider): 0 NIH LOC Questions (Provider): 1 NIH LOC Commands (Provider): 0 NIH Best Gaze (Provider): 0 NIH Visual (Provider): 0 NIH Facial Palsy (Provider): 2 NIH Left Arm Motor (Provider): 2 NIH Right Arm Motor (Provider): 0 NIH Left Leg Motor (Provider): 0 NIH Right Leg Motor (Provider): 0 NIH Limb Ataxia (Provider): 0 NIH Sensory (Provider): 1 NIH Best Language (Provider): 0 NIH Dysarthria (Provider): 1 NIH Extinction and Inattention (Provider): 0 NIH Total Score (Provider): 7 ASSESSMENT AND PLAN Neuro: (08/02/2024) 2 Days Post-Op R M1 occlusion sp TICI 2b reperfusion after 1 pass mechanical aspiration (08/02) Acute R BG CVA Acute Cytotoxic Cerebral Edema Acute Brain compression Acute tiny Right cerebellum infarct R BG Hemorrhagic conversion - Initial CVA Management: - 08/02 Stroke alert performed; summary of imaging findings: mid R M1 occlusion - no thrombolytics as unsure of last Eliquis dose - 08/02 NSGY consulted for thrombectomy, performed and obtained TICI 2b revascularization - Ongoing CVA management: - Monitor neurostatus with neurochecks Q2H and Q4 at night - Prevent cerebral hypoperfusion with goal SBP <160 (see cards) - Imaging: - 08/[address] H: no acute hemorrhage or large territory stroke - 08/02 CTA: R M1 occlusion - 08/03 MRI B: Hemorrhagic infarct involving the right basal ganglia with surrounding edema. Mass effect with effacement of the right lateral ventricle and midline shift to the left. 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 - 08/03 stability CTH: Acute right basal ganglia hemorrhage with surrounding mass effect and midlineshift stable since the MRI from earlier today - 08/04 CTH: stable - antiplatelet therapy: ASA 81 mg daily held given hemorrhagic conversion, ok to start 7 days (08/10) from hemorrhagic conversion - Cytotoxic Cerebral Edema Management: - Goal Na 140-150; monitor Na Q6H - PRN HTS 3% boluses Recent Labs 08/02/24 1843 08/03/24 0002 08/03/24 1123 08/03/24 1827 08/04/24 0003 08/04/24 0620 SODIUM 139 138 134* 139 145 143 OSMOLALITY 299 295 -- -- 312* -- CHLORIDE 105 103 -- -- 109* -- - Stroke etiology presumed to be cardioembolic based on the TOAST Criteria. Stroke risk factors include atrial fib., CAD, diabetes, hypercholesterolemia, and hypertension. - Complete TTE (see cards) - LDL level 84 and statin started - HA1C level 7.8 (see endo) - Antiplatelet therapy held as above - VTE prophylaxis: subcutaneous heparin 08/04 - Anticoagulation plan: hold home Eliquis, restarting timing TBD per stroke team. Pain/Sedation management: - Tylenol 650mg Q4H PRN S/p fall, trauma work up - CT chest: No acute traumatic findings within the chest. - CT a/p: No acute traumatic findings within the abdomen or pelvis. - CT cervical spine: Anterolisthesis of C4 over C5 without any underlying fractures or prevertebralsoft tissue edema. Findings are likely chronic in nature. - CT orbits: No displaced large fractures identified - Right Xray Elbow/humerus/wrist: No acute osseous abnormality. - MRI cervical spine: Grade 1 anterolistheses of C3 on C4 and C4 on C5 favored to be degenerative in nature given facet arthropathies. No MRI evidence of ligamentous injury. Mild bone marrow edema along the inferior endplate of C6. This could either relate to degenerative disc disease or recent trauma. No retropulsion is noted. Moderate spinal canal stenosis at C4-C5. No cord signal abnormality. - 08/03 cleared c-collar Psych: No Current Issues Pulm: No Current Issues O2 Sat (%): 94 % (08/04 0700) O2 Device: room air (08/04 699) - Goal SpO2 >92%; wean FiO2 as tolerated - [id number], encourage pulmonary toileting Cards: Essential HTN HLD Atrial Fibrillation CAD RVR Temp: [98 F (36.7 C)-98.7 F (37.1 C)] 98.7 F (37.1 C) Pulse (Heart Rate): [89-125] 89 Resp Rate: [13-31] 27 BP: (94-157)/(52-108) 139/76 O2 Sat (%): [91 %-95 %] 94 % Weight: [78.3 kg (172 lb 9.9 oz)] 78.3 kg (172 lb 9.9 oz) - Goal SBP <160, MAP >65 HTN - Home antihypertensives: not filling home atenolol 50 mg daily and Ramipril 20 mg daily - Current regimen: - PRN labetalol and hydralazine - 08/03 metoprolol 25 mg Q6H (transitioned to metop from coreg for better rate control) HLD - Statin Therapy: resume home atorvastatin 80 mg (not filling) - LDL: 84 Afib w/ RVR - hold home Eliquis 2.5 mg BID (has been filling) - 08/03 Metoprolol 5 mg IVP x2, Beta shea as above for rate control Diagnostics - TTE: p - 08/02 troponin: 9 - 08/02 ECG: Afib - 08/02 BNP: 1,115 Renal/: CKD stage 3a Urinary incontinent Hypocalcemia Mild Keli Fluid Balance: - Goal: euvolemia - Maintenance: none Intake/Output Summary (Last 24 hours) at 08/04/2024 0744 Last data filed at 08/04/2024 0645 Gross per 24 hour Intake 1568.84 ml Output 900 ml Net 668.84 ml Urinary incontinent - hold home oxybutynin Mild Keli on CKD - trend Cr daily, strict I&O, keep gallegos for now given decreased UOP. - Daily Chem 10; electrolytes replaced per N[facility]U protocol Recent Labs 08/03/24 0002 08/03/24 1123 08/04/24 0003 08/04/24 0620 SODIUM 138 < > 145 143 POTASSIUM 4.3 -- 4.0 -- CHLORIDE 103 -- 109* -- CO2 23 -- 24 -- BUN 18 -- 26* -- CREATSERUM 1.35* -- 1.47* -- PHOSPHORUS 3.5 -- 2.8 -- MAGNESIUM 2.1 -- 1.9 -- ICA 4.24* -- 4.80 -- < > = values in this interval not displayed. 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 Recent Labs 08/02/24 1843 ALBUMIN 3.5 BILIDIRECT 0.1 BILITOTAL 0.6 ALKPHOS 117 ALT 10 AST 17 TP 6.3* - DIET NPO AND TUBE FEEDING with meds (per DHT) - [place] Swallow Screening Result: failed=NPO Bowel regimen: - Last Bowel Movement: (prior to admission) - Senna 17.2 mg Q12H, miralax at bedtime Stress ulcer prophylaxis: - none Dysphagia - DHT placed - NETWORK SUPPORT ENGINEER following - Tube feed: Vital AF with goal rate 70 mL/h Endo: DM Type 2 Hypothyroid DM - Goal blood glucose 140-180 - home regimen: Glimepiride 2 mg daily, metformin 1000 mg daily - current regimen: Insulin high SSI regular Q6H, scheduled insulin 4 units Q6H for tube feed coverage. - A1c: 7.8 Recent Labs 08/02/24184208/02/24 2325 08/03/24 1719 08/04/24208/04/24 0620 GLUCOSE 210* < > 246* 178 181* 215* HGBA1C 7.8* -- -- -- -- < > = values in this interval not displayed. Hypothyroid - continue home synthroid 75 mcg daily ID: No Current Issues Recent Labs 08/03/24 0002 08/04/24 0003 WBC 8.43 11.41* - Temp (24hrs), Av.4 F (36.9 C), Min:98 F (36.7 C), Max:98.7 F (37.1 C) - PRN Tylenol for T>100.4F - Most recent and positive cultures: Date Collected Source Result Date Finalized 08/02 Staph nasal swab Negative 08/02 Urine cx P - Antiinfectives: Start Date Antiinfective Coverage Course Length Stop Date 08/03 Unasyn Recent root canal (Ordered IV till PO access obtained) 08/03 08/01 (started outpatient by dentist) PCN Recent root canal, continuation of home med 7 days 08/07 Heme/Onc: No Current Issues Recent Labs 08/02/24184208/03/24108/04/24 0003 WBC 8.16 8.43 11.41* RBC 4.76 4.63 4.43 HGB 14.0 13.5 12.7 HCT 43.8 42.8 40.8 PLATELET 245 227 228 PT 13.9 -- -- PTT 26.9 -- -- INR 1.1 -- -- - Goal plt >100, INR <1.4, Hgb >7 - OR EBL: minimal DVT prophylaxis: - chemical dvt ppx: subcutaneous heparin started 08/04 Musc: No Current Issues - PT/OT consulted and following - Current Activity Order: AAT Fall Risk: - Assessed for patient fall risk and discussed safety measures during rounding. Social/Dispo: - Code status: Full Code - 08/02: Medications reconciled - Discharge planning per PCRM/SW. Complexity. Hypothyroidism - Continue thyroid replacement. Any conditions listed below are present on admission unless otherwise specified. . ICU Checklist: [x] Assess pain Presence of Pain: denies pain/discomfort Presence of Pain Score (Auto-calculated): 0 [x] Both SAT & SBT [x] Choice of analgesia/ sedation See neuro [x] Delirium Overall CAM-ICU: Positive [x] Early mobility PT/OT consulted?: Yes CURRENT AM-PAC Mobility Raw Score: 6 CURRENT AM-PAC Mobility Functional Limitation: 100.00% Impaired in Basic Mobility [x] Family Engagement Primary Emergency Contact: Ike Acuna, Last updated: 08/04 and daughter at bedside [x] Prophylaxis VAP: N/A Stress ulcer prophylaxis: not indicated DVT: subcutaneous heparin [x] Lines Clothier: n/a Gallegos: inserted 08/02, (indication: strict I&O with concern for KELI) Rectal tube: n/a Enteral access: inserted 08/03, [ ] gastric; [x ] post-pyloric CENTRAL LINES: Central Line Indications: No line currently in place Can line/s be removed today? No line in place at this time Dressing/s Clean/Dry/Intact?: No line currently in place Discussed with NCCU Attending, Dr. Jackie Mccoy, INFANT LEAD TEACHER-WOODEN BARREL MECHANIC 08/04/24 7:44 AM Check the treatment team to find the assigned neurocritical care provider (resident, fellow, SISAL OPERATOR, orPA) or page/call the corresponding number below NCC1 (Beds [phone]): Ciafo # [phone], pager #[phone] N[facility]2 (Beds [phone], [address], and overflow): Ciafo #: [phone], pager #[phone] * Rafael Garcia MD - 08/03/2024 2:16 PM EDT NEUROVASCULAR Consult Daily Progress Note IDENTIFYING INFORMATION Lindsay Acuna MR# [id number] 08/03/2024 HISTORY OF PRESENT ILLNESS Lindsay Acuna is a 78 y.o. female with PMH significant for CAD, HTN, HLD, T2DM, Afib (on Eliquis, although patient reports she has not been taking it) who presents with L hemiplegia, slurred speech. She was last seen normal by her at 0915, later found down with slurred speech and L hemiplegia. She presented to [facility] and was seen on Telestroke, NIHSS 12. CTH showed no acute hemorrhage or large territory stroke. CTA with mid R M1 occlusion. She was not given IV TNK dueto unclear last dose of Eliquis ( unsure of last dose). She was transferred to [facility] for further management. NIHSS 14 on arrival. Patient reports she does not remember the last time she took her Eliquis. At baseline patient is independent and still drives, mRS 0. Neurosurgery was consulted and patient was taken for mechanical thrombectomy with TICI 2b revascularization. INTERVAL HISTORY 08/02/24: going to thrombectomy, R M1 on CTA. TICI 2b. Admit to NCCU post-op 08/03: Hemorrhagic conversion of stroke on MRI, DHT placed, trauma workup pending PHYSICAL EXAM General Physical Exam General: NAD, lying comfortably in bed HENT: C collar in place, normal oropharynx and mucosa. Normal external appearance of ears and nose. Lungs: No audible wheezing. Normal work of breathing. No accessory muscle use Extremities: Warm and well perfused. No appreciable edema, cyanosis or deformity. Skin: No rash. Normal palpation of skin. Musculoskeletal: No joint tenderness. Normal digits and nails by inspection. No clubbing. Neurologic Examination Mental status/Cognition: alert; not oriented to age or month; good attention; no apparent neglect; following commands Speech/language:fluent, object naming intact; comprehension, repetition intact Cranial nerves: CN II Blinks to threat CN III,IV, PERRL. EOMI CN V Facial sensation intact to light touch bilaterally in V1, V2, V3 CN VII L facial droop CN VIII Hearing grossly intact to voice CN IX & X Unable to assess soft palate, mild dysarthria CN XI Shoulder shrug with full strength CN XII Not assessed Motor: Normal bulk and tone. - Left arm: drifts to bed - Right arm: no drift - Left leg: drifts to bed - Right leg: no drift Sensation: intact to light touch throughout without extinction Coordination/Complex Motor: no obvious ataxia in arm or leg movements NIHSS 08/03/2024 Provider NIH Stroke Scale NIH Interval (Provider): admission NIH Level of Conciousness (Provider): 0 NIH LOC Questions (Provider): 1 NIH LOC Commands (Provider): 0 NIH Best Gaze (Provider): 1 NIH Visual (Provider): 1 NIH Facial Palsy (Provider): 2 NIH Left Arm Motor (Provider): 3 NIH Right Arm Motor (Provider): 0 NIH Left Leg Motor (Provider): 3 NIH Right Leg Motor (Provider): 0 NIH Limb Ataxia (Provider): 0 NIH Sensory (Provider): 1 NIH Best Language (Provider): 0 NIH Dysarthria (Provider): 1 NIH Extinction and Inattention (Provider): 1 NIH Total Score (Provider): 14 ASSESSMENT AND PLAN Neuro: R M1 s/p TICI 2b after 1 pass (08/02/2024) 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 Mass effect with effacement of the R lateral ventricle and midline shift to the L. Tiny infarct in cerebellum - CTH 08/03: stable appearance of R basal ganglia hemorrhage - SBP goal: normotension - LDL: 84 - A1C: 7.8 - TTE: pending - Statin therapy: Atorvastatin 80 - Antiplatelet therapy: aspirin 81mg - held in the setting of hemorrhagic conversion - Anticoagulation: not indicated Ischemic Stroke Core Measures -NIHSS on admission 14 -Patient has been started on Mechanical (SCD's). Pharmacological (SQ heparin/Lovenox) DVT prophylaxis held in setting of hemorrhagic conversion. -Antiplatelet therapy (aspirin 81 mg) has been held in setting of hemorrhagic conversion -Anticoagulation therapy was not indicated for this patient -Patients LDL 84 and HgbA1c 7.8 were checked and the patient will be discharged on Atorvastatin 80 daily. -Dysphagia screening ordered, and will be completed prior to patient receiving oral intake. -Stroke education booklet has been ordered and will be provided by the RN that includes both written and verbal education to the patient and family regarding ischemic strokes. We have reviewed the patient's personal modifiable risk factors including: T2DM, HTN, HLD as well as education on reducing these risk factors -Patient is being assessed for Rehab by PT/OT/Speech and PM&R if indicated. Other problems: Dysphagia: - DHT placed Fall/Trauma - Workup with CTC, CTAP, CT orbits, R XR of elbow/humerus/wrist - no acute abnormalities - MRI C spine: Anterolisthesis of C3 on C4 and C4 on C5 favored to be degenerative. NO evidence of ligametnous injury. No retropulsion. Mod spinal canal stenosis at C4-C5. No cord signal abnormality - C-collar cleared 08/03 Hx of afib Afib with RVR - Unclear compliance with Eliquis (2.5 mg) outpatient - Coreg for rate control HTN: Home med atenolol and ramipril - not filling - Currently coreg 6.25 BID HLD: - Resume home med: atorvastatin 80 mg (pt not filling) CKD 3a: Monitor chem T2DM: - SSI ordered - hold home meds: glimepiride 2 mg, metformin 1000 mg daily Complexity. Hyponatremia - Secondary to fluid shifts. Monitor. Hypocalcemia - Continue to monitor and replete. Any conditions listed below are present on admission unless otherwise specified. . Disposition: Pending PT/OT rachel Garcia MD 08/03/2024 2:16 PM VITAL SIGNS Temp: [97.3 F (36.3 C)-98.3 F (36.8 C)] 98.3 F (36.8 C) Pulse (Heart Rate): [78-125] 125 Resp Rate: [9-28] 21 BP: (111-197)/(55-108) 141/108 O2 Sat (%): [93 %-98 %] 94 % Weight: [78.3 kg (172 lb 9.9 oz)] 78.3 kg (172 lb 9.9 oz) Oxygen Therapy: Oxygen Therapy O2 Sat (%): 94 % O2 Device: room air Flow (L/min): 4 Oxygen Delivery/Consumption Hemodynamics BSA (Calculated - sq m): 1.9 m2 Intake/Output: Intake/Output Summary (Last 24 hours) at 08/03/2024 1416 Last data filed at 08/03/2024 1300 Gross per 24 hour Intake 1449.9 ml Output 1925 ml Net -475.1 ml LABS/CULTURES Lab Results Component Value Date WBC 8.43 08/03/2024 HGB 13.5 08/03/2024 HCT 42.8 08/03/2024 PLATELET 227 08/03/2024 MCV 92.4 08/03/2024 Lab Results Component Value Date SODIUM 134 (L) 08/03/2024 POTASSIUM 4.3 08/03/2024 CHLORIDE 103 08/03/2024 CO2 23 08/03/2024 BUN 18 08/03/2024 CREATSERUM 1.35 (H) 08/03/2024 GLUCOSE 151 08/03/2024 Lab Results Component Value Date CHOLESTEROL 141 08/02/2024 TRIG 96 08/02/2024 HDL 38 (L) 08/02/2024 LDLCALC 84 08/02/2024 Lab Results Component Value Date HGBA1C 7.8 (H) 08/02/2024 Lab Results Component Value Date ALBUMIN 3.5 08/02/2024 , No results found for: "CPK", "TROP" IMAGING/DIAGNOSTIC STUDIES XR ABDOMEN 1 VIEW PORTABLE Final Result IMPRESSION: Enteric tube terminates in the expected region of the proximal second portion of the duodenum. HEAD WITHOUT CONTRAST Final Result IMPRESSION: Acute right basal ganglia hemorrhage with surrounding mass effect and midline shift stable since the MRI from earlier today SPINE CERVICAL WITHOUT CONTRAST Final Result IMPRESSION: Grade 1 anterolistheses of C3 on [...] and approved this report. BRAIN WITHOUT CONTRAST Final Result IMPRESSION: Hemorrhagic infarct involving the right basal ganglia with surrounding edema. Mass effect with effacement of the right lateral ventricle and midline shift to the left. 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 ELBOW RIGHT 2 VIEWS Final Result IMPRESSION: No acute osseous abnormality. HUMERUS RIGHT 2+ VIEWS Final Result IMPRESSION: No acute osseous abnormality. WRIST RIGHT 3+ VIEWS Final Result IMPRESSION: No acute osseous abnormality. CHEST WITH CONTRAST VASCULAR TRAUMA Final Result IMPRESSION: No acute traumatic findings within the chest. I personally viewed and interpreted these images and I have reviewed and approved this report. ABDOMEN/PELVIS WITH CONTRAST VASCULAR TRAUMA Final Result IMPRESSION: 1. No acute traumatic findings within the abdomen or pelvis. Hepatic trauma grade: None. Spleen trauma grade: None. Kidney trauma grade: None. ORBITS WITHOUT CONTRAST Final Result IMPRESSION: Motion compromised exam limiting evaluation for subtle fractures. No displaced large fractures identified Partially residual visualization of right basal ganglia hyperdensity concerning for hemorrhage. SPINE CERVICAL WITHOUT CONTRAST Final Result IMPRESSION: Anterolisthesis of C4 over C5 without any underlying fractures or prevertebral soft tissue edema. Findings are likely chronic in nature. Degenerative changes as described above. No evidence of acute fractures identified FLUOROSCOPY OR (Results Pending) ECHOCARDIOGRAM (Results Pending) MEDICATIONS Atorvastatin 80 mg Per NG tube QHS carveDILOL 6.25 mg Per NG tube Q12H Insulin regular Subcutaneous Q6H [START ON 08/04/2024] Levothyroxine 75 mcg Per NG tube Before BKF metoprolol Penicillin v potassium 500 mg Per NG tube Q12H Polyethylene glycol 17 g Oral QHS Or Polyethylene glycol 17 g Per NG tube QHS Senna 8.6 mg Oral QAM Or Senna 8.6 mg Per NG tube QAM Water liquid (free water) 30 mL Per NG tube Q4H Cosigned by Delbert Kasper MD at 08/15/2024 2:01 PM EDT Associated attestation - Delbert Kasper MD - 08/15/2024 2:01 PM EDT Date of service: 08/03/24 I have interviewed and examined patient. I have reviewed Resident/Fellow/DAHLIA note and agree with the following highlights, additions, and addendums: Ms. Acuna is a 78F w/ CAD, HTN, HLD, T2DM, Afib (on Eliquis, although patient reports she has notbeen taking it) who presents with L hemiplegia, slurred speech. She was last seen normal by her at 0915, later found down with slurred speech and L hemiplegia. She presented to [facility] and was seen on Telestroke, NIHSS 12. CTH showed no acute hemorrhage or large territorystroke. CTA with mid R M1 occlusion. She was not given IV TNK due to unclear last dose of Eliquis ( unsure of last dose). She was transferred to [facility] for further management. NIHSS 14 on arrival. Patient reports she does not remember the last time she took her Eliquis. At baseline patient is independent and still drives, mRS 0. Neurosurgery was consulted and patient was taken for mechanical thrombectomy with TICI 2b revascularization.Will be admitted to NCCU for post evt management and stroke workup. Stroke to follow along. I personally attended this patient and spent a total time of 45minutes evaluating this patient including clinical assessment, review of chart, medical history imaging, and determining appropriate treatment and workup. Delbert Kasper MD * Nohelia Oconnell, NETWORK SUPPORT ENGINEER - 08/03/2024 12:09 PM EDT Acute Care NETWORK SUPPORT ENGINEER Speech/Language/Cognitive Evaluation Best mode of Communication: spoken language (regular speech) Discharge Recommendations: Based on the below outcome measures/assessment score(s) and NETWORK SUPPORT ENGINEER clinicaljudgment, discharge destination recommendation is: (Skilled speech therapy services at next level of care) Barriers to discharge home: Cognitive impairments that impact safety and independence Supporting factors for discharge setting: Impaired swallow function limiting nutritional status andsafety with oral intake Acute NETWORK SUPPORT ENGINEER Outcomes Tracking Communicate basic wants and needs?: yes Demo insight/appreciation of deficits?: no Complete basic problem solving?: no Current therapy frequency recommendation in acute: Speech/Lang/Cog Therapy Frequency: 3 times a week Swallow Therapy Frequency: 5 times a week Clinical Impression: Lindsay Acuna presents with cognitive communication deficits in the setting of hemorrhagic infarct involving the right basal ganglia with surrounding edema, mass effect with effacement of the right lateral ventricles and midline shift. These deficits result in functional limitations in insight into deficits, reduced attention to tasks and impaired orientation. Recommend ongoing assessment to determine appropriate plan of care. Today's session was limited due to lethargy. Patient Education/Instruction Learners: Patient Education provided: Dysphagia recommendation risk: benefit analysis, Role of this discipline Teaching method: Verbal Education/Instruction Learner response: Needs review Learning preferences: Auditory Learning considerations: Cognition Stroke education: Role of rehabilitation discipline Plan for next session: 08/03: Good Prognosis, ongoing dysphagia management to determine readiness for diet advancement vs instrumental. Subjective: Lindsay was seen at bedside, lethargic and required max cues to maintain alertness during assessment. Patient's was at bedside. Cervical collar present due to fall. Pain: General Pain Documentation (Adult, OB, Peds) Presence of Pain: denies pain/discomfort Presence of Pain Score (Auto-calculated): 0 DVPRS (Defense and Veterans Pain Rating Scale) DVPRS: Rest: 5- moderate pain DVPRS: Activity: 5- moderate pain Precautions: Patient Safety Communication Prior to Visit: Nursing Lines/Tubes/Drains (Rehab Status): Telemetry Patient History Comments: Lindsay Acuna is a 78 y.o. female who was admitted on 08/02/2024 with L hemiplegia, slurred speech. She was last seen normal by her at 0915, later found down with slurred speech and L hemiplegia. She presented to [facility] and was seen on Telestroke,NIHSS 12. CTH showed no acute hemorrhage or large territory stroke. CTA with mid R M1 occlusion. She was not given IV TNK due to unclear last dose of Eliquis ( unsure of last dose). She was transferred to [facility] for further management. Neurosurgery was consulted and patient was taken for mechanical thrombectomy with TICI 2b revascularization. PMH significant for CAD, HTN, HLD, T2DM, Afib (on Eliquis, although patient reports she has not been taking it) 08/04/23 MRI Brain: Hemorrhagic infarct involving the right basal ganglia with surrounding edema. Mass effect with effacement of the right lateral ventricle and midline shift to the left. 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 Prior Level of Function: Independent; lives at home with her . Recently returned from a 2 week safari. Respiratory Status: Room Air EXPRESSIVE LANGUAGE: Intact Task: Imitates Gestures Intact Automatic Speech Intact Answering 'wh' Questions Intact Repetition Intact Verbalize Basic Wants and Needs Intact Functional Participation in Conversation Functional (Currently impacted by lethargy) RECEPTIVE LANGUAGE: Functional Task: Identify Functional Objects Unable to assess Follow 1-Step Commands Functional Follow 2+ Step Commands Functional Answers Basic Y/N Questions Functional Conversational Comprehension Functional SOCIAL INTERACTION/PRAGMATICS: Impaired Task: Maintains Eye Contact Impaired Maintains Topic Impaired Shifts Topics Appropriately Impaired Affect Impaired Responds Appropriately to Questions COGNITION: Impaired Task: Arousal/Alertness Lethargic Orientation Level Oriented to place, Oriented to time, Oriented to person Safety Judgment Decreased awareness of need for safety Awareness of Errors Decreased awareness of errors Deficits Decreased awareness of deficits Attention Span Attends with cues to redirect, Difficulty attending to directions Memory Unable to assess Problem Solving Unable to assess Cognition Comments RMCA; impaired cognition and lethargic on this date, limited assessment CRANIAL NERVE EXAMINATION: Cranial Nerve Exam CN V (Trigeminal) normal blink CN VII (Facial) unilateral or bilateral weakness of upper or lower face or both (left side facial weakness) CN IX (glossopharyngeal) not tested CN X (Vagus) heart rate and rhythm are normal CN XI (Accessory) weak or unequal shoulder shrug CN XII (Hypoglossal) (no abnormal movements but sluggish lingual range of motion; unable to determine if due to reduced effort vs impairment) MOTOR SPEECH TASKS: Impaired; left side facial weakness VOCAL PARAMETERS: Functional Subjective Voice Evaluation Grade of dysphonia (G): 0 Roughness (R): 0 Breathiness (B): 0 Asthenia (A): 0 Strain (S): 0 NETWORK SUPPORT ENGINEER Outcomes / Standardized Measures Score The Orientation Log (O-Log) & The Cognitive Log (Cog-Log) Orientation Log City: correct spontaneously or upon first free recall attempt Kind of Place: correct spontaneously or upon first free recall attempt Name of Hospital: correct upon multiple choice or phonemic cueing Month: correct upon logical cueing Date: incorrect despite cueing, inappropriate response or unable to respond. Year: correct spontaneously or upon first free recall attempt Day of Week: incorrect despite cueing, inappropriate response or unable to respond. Clock Time: incorrect despite cueing, inappropriate response or unable to respond. Etiology / Event: incorrect despite cueing, inappropriate response or unable to respond. Pathology Deficits: incorrect despite cueing, inappropriate response or unable to respond. Total Score: 12 Acute NETWORK SUPPORT ENGINEER Goals Plan of Care by RIKI Hayes at 08/03/2024 11:25 AM Version 1 of 1 Problem: Dysphagia Goal: Ongoing Assessment - Patient will participate in ongoing assessment by accepting various PO consistency trials with appropriate participation/oral acceptance and no significant respiratory complications to determine readiness for diet advancement Outcome: Ongoing Problem: NETWORK SUPPORT ENGINEER - Cognition Goal: Orientation Log - Patient will recall/implement use of orientation strategies, with minimal cues per assessment protocol, to demonstrate improved awareness and insight as measured by achieving a 27/30 on the O-Log Outcome: Ongoing Goal: Ongoing Assessment - Patient will participate in ongoing dynamic assessment of motor speech, expressive/receptive language, and cognitive- linguistic skills across 1 session to better assess deficits and most appropriately guide NETWORK SUPPORT ENGINEER plan of care Outcome: Ongoing Speech Language Pathologist: RIKI Hayes Time In: 1130 Time Out: 1151 Total Visit Time: 21 minutes Total Treatment Time (skilled, billable minutes): 21 minutes Non-billable assistance during session: none Assisted by during session: Patient's PPE used during patient interaction: gloves Patient location/status at end of session: bed with head of bed elevated Patient alarms at end of session: bed alarm Needs in reach. NETWORK SUPPORT ENGINEER Evaluation and Treatment Time Speech Eval - Sound Production W/Lang Comp and Exp 20655: 11 Swallowing Eval 78023: 10 Upon discontinuation of Acute Care Speech Therapy Services or patient discharge from the hospital this note represents the current Speech Therapy Discharge Summary * RIKI Hayes - 08/03/2024 11:30 AM EDT Acute Care Speech-Language Pathology Clinical Swallow Evaluation Diet recommendation: Recommended Method of Nutrition: Short-term alternate nutrition Recommended Medication Administration (as appropriate per MD): Non-Oral Assistance: nurse/aide Discharge Recommendations: Based on the below outcome measures/assessment score(s) and NETWORK SUPPORT ENGINEER clinicaljudgment, discharge destination recommendation is: Deferred to PT/OT recomendations related to mobility Current therapy frequency recommendation in acute care: Swallow Therapy Frequency: 5 times a week Acute NETWORK SUPPORT ENGINEER Outcomes Tracking Communicate basic wants and needs?: yes Demo insight/appreciation of deficits?: no Complete basic problem solving?: no Date of Admission: 08/02/2024 Date of Evaluation: 08/03/2024 Attending Physician: Richard Mejia MD General Patient Information Name: Lindsay Acuna Gender: female Date of : 1945 Primary Diagnosis: No diagnosis found. No past medical history on file. No past surgical history on file. Pain: General Pain Documentation (Adult, OB, Peds) Presence of Pain: denies pain/discomfort Presence of Pain Score (Auto-calculated): 0 DVPRS (Defense and Veterans Pain Rating Scale) DVPRS: Rest: 5- moderate pain DVPRS: Activity: 5- moderate pain Precautions: Patient Safety Communication Prior to Visit: Nursing Lines/Tubes/Drains (Rehab Status): Telemetry Patient History Comments: Lindsay Acuna is a 78 y.o. female who was admitted on 08/02/2024 with L hemiplegia, slurred speech. She was last seen normal by her at 0915, later found down with slurred speech and L hemiplegia. She presented to [facility] and was seen on Telestroke,NIHSS 12. CTH showed no acute hemorrhage or large territory stroke. CTA with mid R M1 occlusion. She was not given IV TNK due to unclear last dose of Eliquis ( unsure of last dose). She was transferred to [facility] for further management. Neurosurgery was consulted and patient was taken for mechanical thrombectomy with TICI 2b revascularization. PMH significant for CAD, HTN, HLD, T2DM, Afib (on Eliquis, although patient reports she has not been taking it) 08/04/23 MRI Brain: Hemorrhagic infarct involving the right basal ganglia with surrounding edema. Mass effect with effacement of the right lateral ventricle and midline shift to the left. 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 Prior NETWORK SUPPORT ENGINEER history: No prior speech history per chart review Current Method of Nutrition: Route of Nutrition: No alternative means Respiratory Status: O2 Sat (%): 94 % (08/03 1100) O2 Device: room air (08/03 1100) Line/Tubes/Drains: Lines/Tubes/Drains (Rehab Status): Telemetry Patient Vitals for the past 2 hrs: Pulse Heart Rate Source Resp BP MAP (mmHg) BP Method BP Location BP Position SpO2 O2 Device 08/03/24 1000 124 Monitor 18 135/63 91 mmHg Automatic Right arm Lying 93 % room air 08/03/24 1100 109 Monitor 18 112/55 79 mmHg Automatic Right arm Lying 94 % room air Exam limited by cognition: Yes Subjective: Lindsay was seen at bedside, lethargic and required max cues to maintain alertness during assessment. Patient's was at bedside. Cervical collar present. Objective Evaluation Cranial Nerve Exam CN V (Trigeminal) normal blink CN VII (Facial) unilateral or bilateral weakness of upper or lower face or both (left side facial weakness) CN IX (Glossopharyngeal) not tested CN X (Vagus) heart rate and rhythm are normal CN XI (Accessory) weak or unequal shoulder shrug CN XII (Hypoglossal) (no abnormal movements but sluggish lingual range of motion; unable to determine if due to reduced effort vs impairment) Vocal Quality: WDL GRBAS: A perceptual rating scale for voice parameters Rating scale of 0 to 3 0 = no impairment 1 = minimal to mild impairment 2 = moderate impairment 3 = severe impairment Subjective Voice Evaluation Grade of dysphonia (G): 0 Roughness (R): 0 Breathiness (B): 0 Asthenia (A): 0 Strain (S): 0 Positioning: High Stuart's (60-90 degrees) Anticipatory Phase: Intact Foods and Liquids Trialed Modality Amount Ice Teaspoon, NETWORK SUPPORT ENGINEER-fed 3x Thin Teaspoon 3x Oral Phase Function Comments Oral Mucosa Intact Dentition Natural teeth Labial Closure Intact Mastication Unable to assess Oral Stasis Absent Cough before the swallow Absent Oral Phase Summary: Patient presents with presumed oral phase impairments in the setting of left side facial and labial weakness. Patient demonstrated oral holding of the bolus and impaired acceptance with straw and spoon, suspect related to lethargy vs inability. Pharyngeal Phase Function Comments Perceived Swallow Present Cough Response Yes, Immediate Throat Clear No Subjective Complaint of Residue Absent Pharyngeal Phase Summary: Patient presents with presumed pharyngeal phase impairments. [place] Swallow Screen: (administered by: RN) [place] Swallow Screening Screening Exclusion Criteria: none, continue with [place] Swallow Screening Cognitive Screen: Orientation: able to give name, able to name place, able to name current year Cognitive Screen: Command Following: able to open mouth, able to stick out tongue, able to smile Oral Motor Function : able to close lips, able to move tongue to corners of lips, able to stick outtongue past lips, able to pucker lips and smile 3 oz. Water Swallow Challenge : coughing/throat clearing-overt signs/symptoms [place] Swallow Screening Result: failed=NPO Voice and Swallow Outcomes: Functional Oral Intake Scale: Level 1 - No oral intake Clinical Impression: Lindsay Acuna presents with oropharyngeal phase impairments in the setting of lethargy and left sidefacial weakness secondary to RMCA, now s/p TICI 2b revascularization. Session impacted by lethargy.Patient demonstrated oral holding and concerns for airway events with thin liquid trials. Recommend short term enteral nutrition access. Ok for ice chips with RN supervision. NETWORK SUPPORT ENGINEER will continue to follow for ongoing dysphagia management. Patient Education/Instruction Learners: Patient Education provided: Dysphagia recommendation risk: benefit analysis, Role of this discipline Teaching method: Verbal Education/Instruction Learner response: Needs review Learning preferences: Auditory Learning considerations: Cognition Plan for next session: 08/03: Good Prognosis, ongoing dysphagia management to determine readiness for diet advancement vs instrumental. Acute NETWORK SUPPORT ENGINEER Goals Plan of Care by RIKI Hayes at 08/03/2024 11:25 AM Version 1 of 1 Problem: Dysphagia Goal: Ongoing Assessment - Patient will participate in ongoing assessment by accepting various PO consistency trials with appropriate participation/oral acceptance and no significant respiratory complications to determine readiness for diet advancement Outcome: Ongoing Problem: NETWORK SUPPORT ENGINEER - Cognition Goal: Orientation Log - Patient will recall/implement use of orientation strategies, with minimal cues per assessment protocol, to demonstrate improved awareness and insight as measured by achieving a 27/30 on the O-Log Outcome: Ongoing Goal: Ongoing Assessment - Patient will participate in ongoing dynamic assessment of motor speech, expressive/receptive language, and cognitive- linguistic skills across 1 session to better assess deficits and most appropriately guide NETWORK SUPPORT ENGINEER plan of care Outcome: Ongoing Speech Language Pathologist: RIKI Hayes, [facility] Board Certified Specialist in Swallowing and Swallowing Disorders Available via [employer] Chat Time In: 1130 Time Out: 1151 Total Visit Time: 21 minutes Total Treatment Time (skilled, billable minutes): 21 minutes Non-billable assistance during session: none Assisted by during session: Patient's PPE used during patient interaction: gloves Patient location/status at end of session: bed with head of bed elevated Patient alarms at end of session: bed alarm Needs in reach. NETWORK SUPPORT ENGINEER Evaluation and Treatment Time Speech Eval - Sound Production W/Lang Comp and Exp 74183: 11 Swallowing Eval 92773: 10 Upon discontinuation of Acute Care Speech Therapy Services or patient discharge from the hospital this note represents the current Speech Therapy Discharge Summary * Richard Mejia MD - 08/03/2024 10:30 AM EDT I have independently seen and examined the patient on 08/03/24. I agree with the history, examination, assessment and plan as documented by the SISAL OPERATOR with my changes/additions added. Patient is a 78 yo F with a hx of HTN, HLD, DM2, afib on Eliquis, CKD stage 3a, CAD who presented with L sided weakness, facial droop, slurred speech and R gaze preference. She did not receive lytics. CTA with R M1 occlusion s/p MT with TICI 2b revascularization Interval History: Hemorrhagic transformation in the R BG Scheduled Meds: ampicillin-sulbactam 3 g Intravenous Q12HNS [Held by provider] aspirin 81 mg Oral Daily Or [Held by provider] aspirin 300 mg Rectal Daily Atorvastatin 80 mg Per NG tube QHS [Held by provider] enoxaparin 40 mg Subcutaneous Daily Insulin regular Subcutaneous Q6H [START ON 08/04/2024] Levothyroxine 75 mcg Per NG tube Before BKF Metoprolol 12.5 mg Per NG tube Q12H Senna 8.6 mg Oral QAM Or Senna 8.6 mg Per NG tube QAM Labs: Chem 7: Lab Results Component Value Date SODIUM 138 08/03/2024 POTASSIUM 4.3 08/03/2024 CHLORIDE 103 08/03/2024 CO2 23 08/03/2024 GLUCOSE 151 08/03/2024 BUN 18 08/03/2024 CREATSERUM 1.35 (H) 08/03/2024 BUNCREARATIO 13 08/03/2024 OSMOLALITY 295 08/03/2024 GFR 40 (L) 08/03/2024 CBC: Lab Results Component Value Date WBC 8.43 08/03/2024 HGB 13.5 08/03/2024 HCT 42.8 08/03/2024 PLATELET 227 08/03/2024 MCV 92.4 08/03/2024 Physical Exam: Vital Signs: Blood pressure 135/63, pulse 124, temperature 98.3 F (36.8 C), temperature source Oral, resp. rate 18, SpO2 93%. General: no acute distress HEENT: normocephalic, atraumatic Cardiovascular: +S1S2, irregular rate and rhythm, no edema, + distal pulses, capillary refill < 3 seconds Pulmonary: Clear to auscultate bilaterally Abdominal: soft, nontender, nondistended, active bowel sounds Extremities: no wounds nor lesions Skin: no rash or obvious skin abnormalities Neurology: awake and alert, follows commands, R gaze preference, L facial droop, LUE 3/5, LLE 3/5, full strength on the R, hemiextenciton on the L Assessment and Plan: Neurology: Acute R MCA ischemic stroke in the setting of R M1 occlusion - Stroke etiology cardio embolic due to afib Hemorrhagic transformation in the R BG with surrounding cerebral edema, mass effect and MLS of the brain - Did not receive lytics. S/p MT with TICI 2b revascularization - Stability CTH in 6 hours was stable. Repeat in the am - Neurochecks with NIHSS q1h - SBP goal <140, MAP >65, Na goal 140-150, PRN 3% HTS to achieve goal - Hold ASA in the setting of ICH - Statin - PT/OT/NETWORK SUPPORT ENGINEER evaluation Pulmonary: No acute issues, appears to protect her airways. Patient remained under close watch Oxygen Therapy O2 Sat (%): 93 % O2 Device: room air Flow (L/min): 4 Cardiovascular: Essential HTN Chronic afib with RVR, CAD, HLD - SBP goal< 140, MAP goal >65. PRN Hydralazine and Labetalol. Nicardipine gtt to achieve goal - Start Coreg, PRN metoprolol for RVR - Hold ASA as above - Continue statin - Obtain TTE Nephrology: CKD stage 3a - Maintain euvolemia GI/Nutrition: Start TF for nutrition - Bowel regimen to prevent constipation Endocrinology: DM2 with hyperglycemia - Goal blood glucose 140-180. SSI, A1 of 7.8 - Levothyroxine for hypothyroidism ID: Afebrile - PRN Tylenol for T>100.4F Continue penicillin for recent root canal, total of 7 days until 08/07. Started by her OP dentist Heme/Onc: - Goal plt >100, INR <1.4, Hgb >7 - VTE prophylaxis: - SCDs - Chemical prophylaxis - Hold for the ICH Acute deconditioning - PT/OT consulted and following - Mobility as tolerated Additional details and other supportive care as per the SISAL OPERATOR note from the same day This patient is critically ill, unstable and is at high risk of imminent or life threatening deterioration due to acute R MCA ischemic stroke, cytotoxic cerebral edema, hemorrhagic transformation in the R BG, mass effect with MLS of the brain, HTN, afib with RVR requiring close neurologic and hemodynamic monitoring to prevent clinical deterioration, hyperosmolar therapy. I personally spent 34 minutes in the intensive care unit providing critical care services to the patient today [facility] teaching and other care providers. Management of the above was performed. My time managing this critically ill patient included review of interval history, laboratories, radiology and cons ultation reports; performing a physical examination; discussing the patient with the multi-disciplinary team and managing life sustaining therapies to prevent imminent clinical deterioration. Richard Mejia MD Neurocritical Care Attending * Chela Parvez - 08/03/2024 9:47 AM EDT Discharge Planning Assessment Is the patient able to participate in the assessment?: Yes; with assistance from spouse Care Management Plan MEDICAL PHYSICS PROFESSOR met with Patient and Spouse at bedside to complete Initial Assessment. They were agreeable to SW visit. Patient was lethargic though able to answer some short questions. Patient consented to Spouse assisting with assessment. Spouse/Patient report that Patient has never completed a HCPOA. They expressed interest, and MEDICAL PHYSICS PROFESSOR will follow to complete document when Patient is more alert and oriented. Spouse reports himself and Patient live in a ranch-style home with strong supports from their community, including 2 neighbors that have assisted at this time. He noted that himself and Patient recently returned from a visit to [facility] for their 50 anniversary. Spouse reports that their 2 children will be visiting soon. MEDICAL PHYSICS PROFESSOR explained SW role and offered resources. Spouse reports no SDOH concerns and confirms they havewhat they need and are aware of community resources in their area. SW will continue to follow for discharge planning. Initial Discharge Planning Expected Discharge Disposition: (unknown at this time; pending therapy recommendations) Transportation Available for Discharge: (unknown at this time) Anticipated DME: (unknown at this time) Anticipated Services at Discharge: (unknown at this time) Patient Assessment Completed: Initial Legal Next of Kin Does the patient have a Guardian?: No Spouse: Yes Name and Contact information: Ike Acuna P: [phone] Adult Child(jj), List All Adult Children: Yes Name and Contact information: Donnell Acuna P: [phone]; Nathen Acuna P: [phone] Would you like to add additional adult children?: No Parent(s) - List All Living Parents: No Adult Sibling(s), List All Adult Siblings: Yes Name and Contact information: Patient confirms that she has 2 siblings; no names/contact info provided Would you like to add additional adult siblings?: No Nearest Adult Related by Blood or Adoption: No Patient Reports No Relatives by Blood or Adoption.: No Referral to Social Work to Identify Legal Next of Kin?: No Reviewed and Updated in Demographics? : Yes Advanced Care Planning Has the patient completed Advance Directives?: Not Completed Referral to Social Work for Advance Care Planning? : Patient Agreeable (MEDICAL PHYSICS PROFESSOR to follow for HCPOA completion when Patient is more alert and oriented) Medication Management Does the patient have prescription insurance coverage? : Yes Is the patient on Anticoagulation? : Yes (Per chart review, Patient is on anticoagulation but has not been taking it (does not recall the last time she took a dose)) Provider or Clinic that manages Anticoagulation?: (unspecified at this time) [facility] [address] [place] [id number] [id number] [facility] [address] [facility] [id number] Living Environment and Support System Is the patient from a facility or detention?: No Living Environment: House ("1 bedroom ranch") Patient Caregiving Responsibilities: Self Patient-identified caregiver/support network: Family, Friends, Neighbors, Confucianist Who does the patient identify as a teachable caregiver(s)?: Spouse or Partner Services Does the patient use a home health or hospice agency?: No Current with dialysis?: No Does the patient use any community programs or services?: No Does patient use DME? : straight cane, rollator (collapsible cane) DME provider name and contact: unspecified at this time Would you like to add additional DME providers?: No Does the patient use oxygen?: No Does patient use medical supplies? : glucose testing strips How does patient obtain supplies?: (unspecified at this time) Medical Supplier Name and Phone/Fax: (unspecified at this time) Would you like to add additional medical suppliers?: No Anticipated Changes Related to Illness/Injury? : Unknown at this time Initial ADLs Prior to Arrival What is the patient's baseline physical functioning prior to this acute illness?: independent What is the patient's baseline cognitive functioning prior to this acute illness?: independent Is the patient's baseline functioning changed by this acute illness? : Unable to assess Concerns with patient being able to care for themselves at home? : Unable to assess Web Database Developer Does the patient or promotional representative express financial concerns? : No Chela Snyder Social Work Student Available by [employer] Cosigned by OWEN Keller at 08/03/2024 11:20 AM EDT * Balbir Mccoy, INFANT LEAD TEACHER-WOODEN BARREL MECHANIC - 08/03/2024 7:40 AM EDT NEUROCRITICAL CARE DAILY NOTE HOSPITAL VISIT DEMOGRAPHICS Patient: Lindsay Acuna Code status: Full Code Admission date: 08/02/2024 3:02 PM Hospital days: LOS: 1 day CHIEF COMPLAINT Left hemiplegia and slurred speech HISTORY OF PRESENT ILLNESS Lindsay Acuna is a 78 y.o. female with a past history of hypothyroid, CKD stage 3a, CAD, HTN, HLD, T2DM, Afib (on Eliquis, unsure of last dose) who presents with Left hemiplegia and slurred speech. She presented to [facility] on 08/02, seen on tele stroke with NIH of 12. Imaging revealed mid R M1 occlusion.She did not receive thrombolytics as unsure of her last Eliquis dose. She was transferred to [facility] for thrombectomy. On arrival her NIH was 14, mRS 0, and she was taken for thrombectomy with NSGY with TICI 2b revascularization. She was [facility] postop. INTERVAL HISTORY SINCE ADMISSION 08/02/2024: admitted to [facility] 08/03: trauma workup overnight. Hemorraghic conversion of stroke. Failed swallow, place DHT. PHYSICAL EXAM GENERAL: Alert, no acute distress HEENT: normocephalic, left eye ecchymosis CARDIO: +S1S2, no edema. Tele Afib PULM: equal chest rise; on RA ABDOMINAL: soft, nontender, nondistended, active bowel sounds EXTREMITIES: no wounds or lesions noted, R radial angio site with no ecchymosis VASCULAR: 2+ distal pulses, capillary refill <3 seconds NEURO: Mental status: alert; oriented to person, place, year; disoriented to month and age. good attention Speech/language: dysarthria, comprehension intact Cranial nerves: CN II: Visual richards intact to confrontation. PERRL. 3mm iron pellet tester III, IV and : EOMI. No nystagmus. CN V: Facial sensation intact to light touch. CN VII: facial droop CN VIII: Hearing is grossly intact. CN IX and X: Soft palate elevates symmetrically in the midline CN XI: Shoulder shrug and sternocleidomastoid strength 5/5 RUE, 1/5 LUE CN XII: Tongue is midline with normal movement; no fasciculations Motor: Normal bulk and tone. LUE weakness Sensation: Extremity sensation intact throughout. Coordination: No ataxia, dysmetria FTS - Daily NIHSS: NIH Stroke Scale: NIH Level of Conciousness (Provider): 0 NIH LOC Questions (Provider): 1 NIH LOC Commands (Provider): 0 NIH Best Gaze (Provider): 0 NIH Visual (Provider): 0 NIH Facial Palsy (Provider): 2 NIH Left Arm Motor (Provider): 3 NIH Right Arm Motor (Provider): 0 NIH Left Leg Motor (Provider): 1 NIH Right Leg Motor (Provider): 0 NIH Limb Ataxia (Provider): 0 NIH Sensory (Provider): 1 NIH Best Language (Provider): 0 NIH Dysarthria (Provider): 1 NIH Extinction and Inattention (Provider): 0 NIH Total Score (Provider): 9 ASSESSMENT AND PLAN Neuro: (08/02/2024) 1 Day Post-Op R M1 occlusion sp TICI 2b reperfusion after 1 pass mechanical aspiration (08/02) Acute R BG CVA Acute Cytotoxic Cerebral Edema Acute Brain compression Acute tiny Right cerebellum infarct R BG Hemorrhagic conversion - Initial CVA Management: - 08/02 Stroke alert performed; summary of imaging findings: mid R M1 occlusion - no thrombolytics as unsure of last Eliquis dose - 08/02 NSGY consulted for thrombectomy, performed and obtained TICI 2b revascularization - Ongoing CVA management: - Monitor neurostatus with neurochecks Q1H and pupilometer Q1H - Prevent cerebral hypoperfusion with goal SBP <140 (see cards) - Imaging: - 08/[address] H: no acute hemorrhage or large territory stroke - 08/02 CTA: R M1 occlusion - 08/03 MRI B: Hemorrhagic infarct involving the right basal ganglia with surrounding edema. Mass effect with effacement of the right lateral ventricle and midline shift to the left. 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 - 08/03 stability CTH: Acute right basal ganglia hemorrhage with surrounding mass effect and midlineshift stable since the MRI from earlier today - antiplatelet therapy: ASA 81 mg daily held given hemorrhagic conversion - Cytotoxic Cerebral Edema Management: - Goal Na 140-150; monitor Na Q6H - 08/03 HTS 3% bolus Recent Labs 08/02/24 1843 08/03/24 0002 SODIUM 139 138 OSMOLALITY 299 295 CHLORIDE 105 103 - Stroke etiology presumed to be cardioembolic based on the TOAST Criteria. Stroke risk factors include atrial fib., CAD, diabetes, hypercholesterolemia, and hypertension. - Complete TTE (see cards) - LDL level 84 and statin started - HA1C level 7.8 (see endo) - Antiplatelet therapy held as above - VTE prophylaxis: held given hemorrhagic conversion - Anticoagulation plan: hold home Eliquis, restarting timing TBD per stroke team. Pain/Sedation management: - Tylenol 650mg Q4H PRN S/p fall, trauma work up - CT chest: No acute traumatic findings within the chest. - CT a/p: No acute traumatic findings within the abdomen or pelvis. - CT cervical spine: Anterolisthesis of C4 over C5 without any underlying fractures or prevertebralsoft tissue edema. Findings are likely chronic in nature. - CT orbits: No displaced large fractures identified - Right Xray Elbow/humerus/wrist: No acute osseous abnormality. - MRI cervical spine: Grade 1 anterolistheses of C3 on C4 and C4 on C5 favored to be degenerative in nature given facet arthropathies. No MRI evidence of ligamentous injury. Mild bone marrow edema along the inferior endplate of C6. This could either relate to degenerative disc disease or recent trauma. No retropulsion is noted. Moderate spinal canal stenosis at C4-C5. No cord signal abnormality. - 08/03 cleared c-collar Psych: No Current Issues Pulm: No Current Issues O2 Sat (%): 94 % (08/03 0700) O2 Device: room air (08/03 0400) - Goal SpO2 >92%; wean FiO2 as tolerated - [id number], encourage pulmonary toileting Cards: Essential HTN HLD Atrial Fibrillation CAD RVR Temp: [97.3 F (36.3 C)-98.3 F (36.8 C)] 98.3 F (36.8 C) Pulse (Heart Rate): [78-115] 115 Resp Rate: [9-28] 16 BP: (111-197)/(60-106) 111/77 O2 Sat (%): [94 %-98 %] 94 % - Goal SBP <140, MAP >65 HTN - Home antihypertensives: not filling home atenolol 50 mg daily and Ramipril 20 mg daily - Current regimen: - PRN labetalol and hydralazine - 08/03 start Coreg 6.25 mg BID HLD - Statin Therapy: resume home atorvastatin 80 mg (not filling) - LDL: 84 Afib w/ RVR - hold home Eliquis 2.5 mg BID (has been filling) - 08/03 Metoprolol 5 mg IVP x2, Coreg as above for rate control Diagnostics - TTE: p - 08/02 troponin: 9 - 08/02 ECG: Afib Renal/: CKD stage 3a Urinary incontinent Hypocalcemia Fluid Balance: - Goal: euvolemia - Maintenance: none Intake/Output Summary (Last 24 hours) at 08/03/2024 0740 Last data filed at 08/03/2024 0600 Gross per 24 hour Intake 940.49 ml Output 1625 ml Net -684.51 ml Urinary incontinent - hold home oxybutynin - Daily Chem 10; electrolytes replaced per NCCU protocol Recent Labs 08/02/24184208/03/24 0002 SODIUM 139 138 POTASSIUM 3.7 4.3 CHLORIDE 105 103 CO2 22 23 BUN 18 18 CREATSERUM 1.37* 1.35* PHOSPHORUS -- 3.5 MAGNESIUM 1.2* 2.1 ICA -- 4.24* 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 Recent Labs 08/02/241842 ALBUMIN 3.5 BILIDIRECT 0.1 BILITOTAL 0.6 ALKPHOS 117 ALT 10 AST 17 TP 6.3* - DIET NPO WITHOUT meds - Bowel regimen: - Last Bowel Movement: ([employer]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3 C), Max:98.3 F (36.8 C) - PRN Tylenol for T>100.4F - Most recent and positive cultures: Date Collected Source Result Date Finalized 08/02 Staph nasal swab P 08/02 Urine cx P - Antiinfectives: Start Date Antiinfective Coverage Course Length Stop Date 08/03 Unasyn Recent root canal (Ordered IV till PO access obtained) 08/03 08/01 (started outpatient by dentist) PCN Recent root canal, continuation of home med 7 days 08/07 Heme/Onc: No Current Issues Recent Labs 08/02/24 1843 08/03/24 0002 WBC 8.16 8.43 RBC 4.76 4.63 HGB 14.0 13.5 HCT 43.8 42.8 PLATELET 245 227 PT 13.9 -- PTT 26.9 -- INR 1.1 -- - Goal plt >100, INR <1.4, Hgb >7 - OR EBL: minimal DVT prophylaxis: - chemical dvt ppx held given hemorrhagic conversion Musc: No Current Issues - PT/OT consulted and following - Current Activity Order: AAT Fall Risk: - Assessed for patient fall risk and discussed safety measures during rounding. Social/Dispo: - Code status: Full Code - 08/02: Medications reconciled - Discharge planning per PCRM/SW. Complexity. Hypocalcemia - Continue to monitor and replete. Any conditions listed below are present on admission unless otherwise specified. . ICU Checklist: [x] Assess pain Presence of Pain: reports pain/discomfort Presence of Pain Score (Auto-calculated): 0 [x] Both SAT & SBT [x] Choice of analgesia/ sedation See neuro [x] Delirium Overall CAM-ICU: Positive [x] Early mobility PT/OT consulted?: Yes [x] Family Engagement Primary Emergency Contact: Ike Acuna, Last updated: 08/03 at bedside [x] Prophylaxis VAP: N/A Stress ulcer prophylaxis: not indicated DVT: no chemical prophylaxis - rationale: post thrombectomy [x] Lines Lesly: n/a Gallegos: inserted 08/02, (indication: strict I&O) Rectal tube: n/a Enteral access: inserted 08/03, [ ] gastric; [x ] post-pyloric CENTRAL LINES: Central Line Indications: No line currently in place Can line/s be removed today? No line in place at this time Dressing/s Clean/Dry/Intact?: No line currently in place Discussed with NCCU Attending, PATRIZIA Ennis 08/03/24 7:40 AM Check the treatment team to find the assigned neurocritical care provider (resident, fellow, SISAL OPERATOR, orPA) or page/call the corresponding number below NCC1 (Beds [phone]): Pernell # [phone], pager #[phone] NCC2 (Beds [phone], 12 Nando, and overflow): Polaris #: [phone], pager #[phone] * Nando Caceres MD - 08/03/2024 6:00 AM EDT Subjective MRI brain completed and reviewed showing hemorrhagic conversion into the stroke bed Objective Temp: [97.3 F (36.3 C)-98.3 F (36.8 C)] 98.3 F (36.8 C) Pulse (Heart Rate): [78-115] 109 Resp Rate: [9-28] 13 BP: (111-197)/(60-106) 136/72 O2 Sat (%): [94 %-98 %] 95 % PHYSICAL EXAM -- AO4 including to situation -- R gaze preference with minimal crossing of midline -- L sided facial droop -- LUE: 07/17 -- RUE: 09/16 -- BLE: 09/16 -- R wrist was soft, pulses intact WBC/Hgb/Hct/Plts: 8.43/13.5/42.8/227 (08/03 1) Na/K+/Phos/Mg/Ca: 138/4.3/3.5/2.1/-- (08/03 1) Bun/Creat/Cl/CO2/Glucose: 18/1.35/103/23/151 (08/03 1) Lab Results Component Value Date INR 1.1 08/02/2024 PT 13.9 08/02/2024 Intake/Output Summary (Last 24 hours) at 08/03/2024 0917 Last data filed at 08/03/2024 0600 Gross per 24 hour Intake 940.49 ml Output 1625 ml Net -684.51 ml Medications niCARdipine 5 mg/hr (08/03/24 0834) ampicillin-sulbactam 3 g Intravenous Q12HNS [Held by provider] aspirin 81 mg Oral Daily Or [Held by provider] aspirin 300 mg Rectal Daily Atorvastatin 80 mg Per NG tube QHS [Held by provider] enoxaparin 40 mg Subcutaneous Daily Insulin regular Subcutaneous Q6H [START ON 08/04/2024] Levothyroxine 75 mcg Per NG tube Before BKF Metoprolol 12.5 mg Per NG tube Q12H Senna 8.6 mg Oral QAM Or Senna 8.6 mg Per NG tube QAM Assessment/Plan 78 y.o. female s/p TICI 2b for R M1 occlusion with Dr. Ramos on 08/02 Neuro: -- Continue neuro checks -- Advance as tolerated -- MRI brain completed and reviewed showing hemorrhagic conversion into the stroke bed -- Given patient's age > 65 (78 currently), the patient is unfortunately not a hemicraniectomy candidate CVS: -- Per NCCU Respiratory: -- O2 as needed, IS FEN/GI: -- Per NCCU Prophy: -- SCDs, SQ DVT prophy per nccu Neurosurgery signing off Please page [phone] ([phone]) with questions Complexity. Hypocalcemia - Continue to monitor and replete. Any conditions listed below are present on admission unless otherwise specified. . Cosigned by Prema Ramos MD at 08/03/2024 6:37 PM EDT * Andreas Ga, [facility] - 08/02/2024 10:57 PM EDT Department of Pharmacy Renal Documentation Note Patient: Lindsay Acuna Room/Bed: [facility] Assessment and Plan: The patient's most recent renal function markers include: Weight: Wt Readings from Last 1 Encounters: No data found for Wt CrCl cannot be calculated (Unknown ideal weight.). Based on these values - The following adjustments have been made: 78.9 kg, 170 cm, CrCl 36 mL/min Ampicillin/sulbactam 3 g q 6 -> 3 g q 12 . I have modified the orders in IHIS to reflect the above plan.. Please contact with any questions, Name: Andreas Ga RPH Phone: [phone] Date/Time: 08/02/2024 10:57 PM * Richard Mejia MD - 08/02/2024 6:01 PM EDT I have independently seen and examined the patient on 08/02/24. I agree with the history, examination, assessment and plan as documented by the SISAL OPERATOR with my changes/additions added. Patient is a 78 yo F with a hx of HTN, HLD, DM2, afib on Eliquis, CKD stage 3a, CAD who presented with L sided weakness, facial droop, slurred speech and R gaze preference. She did not receive lytics. CTA with R M1 occlusion s/p MT with TICI 2b revascularization Interval History: Admitted to NCCU Scheduled Meds: [START ON 08/03/2024] ampicillin-sulbactam 3 g Intravenous Q6H [START ON 08/03/2024] aspirin 81 mg Oral Daily Or [START ON 08/03/2024] aspirin 300 mg Rectal Daily [START ON 08/03/2024] enoxaparin 40 mg Subcutaneous Daily [START ON 08/03/2024] Insulin regular Subcutaneous Q6H Senna 8.6 mg Oral QAM Or Senna 8.6 mg Per NG tube QAM Labs: Chem 7: Lab Results Component Value Date SODIUM 139 08/02/2024 POTASSIUM 3.7 08/02/2024 CHLORIDE 105 08/02/2024 CO2 22 08/02/2024 GLUCOSE 210 (H) 08/02/2024 BUN 18 08/02/2024 CREATSERUM 1.37 (H) 08/02/2024 BUNCREARATIO 13 08/02/2024 OSMOLALITY 299 08/02/2024 GFR 39 (L) 08/02/2024 CBC: Lab Results Component Value Date WBC 8.16 08/02/2024 HGB 14.0 08/02/2024 HCT 43.8 08/02/2024 PLATELET 245 08/02/2024 MCV 92.0 08/02/2024 Physical Exam: Vital Signs: Blood pressure 122/79, pulse 95, temperature 97.6 F (36.4 C), temperature source Oral,resp. rate 24, SpO2 97%. General: no acute distress HEENT: normocephalic, atraumatic Cardiovascular: +S1S2, irregular rhythm, no edema, + distal pulses, capillary refill < 3 seconds Pulmonary: Clear to auscultate bilaterally Abdominal: soft, nontender, nondistended, active bowel sounds Extremities: no wounds nor lesions Skin: no rash or obvious skin abnormalities Neurology: awake and alert, follows commands, R gaze preference, L facial droop, LUE 2/5, LLE 3/5, full strength on the R, hemiextenciton on the L Assessment and Plan: Neurology: Acute R MCA ischemic stroke in the setting of R M1 occlusion - Stroke etiology cardio embolic due to afib Cytotoxic cerebral edema - Did not receive lytics. S/p MT with TICI 2b revascularization - Neurochecks with NIHSS q1h - SBP goal <180, MAP >65, eunatremia - ASA for secondary stroke prevention. Holding AC until brain MRI to determine stroke burden - Statin - PT/OT/NETWORK SUPPORT ENGINEER evaluation Pulmonary: No acute issues, appears to protect her airways. Patient remained under close watch Oxygen Therapy O2 Sat (%): 97 % O2 Device: room air Flow (L/min): 4 Cardiovascular: Essential HTN Chronic afib, CAD, HLD - SBP goal< 180, MAP goal >65. PRN Hydralazine and Labetalol - EKG, Trop, keep on tele - ASA and statin - Holding AC as above - Obtain TTE Nephrology: CKD stage 3a - Maintain euvolemia GI/Nutrition: - NETWORK SUPPORT ENGINEER evaluation - Bowel regimen to prevent constipation Endocrinology: DM2 with hyperglycemia - Goal blood glucose 140-180. SSI, obtain A1c - Levothyroxine for hypothyroidism ID: Afebrile - PRN Tylenol for T>100.4F Heme/Onc: - Goal plt >100, INR <1.4, Hgb >7 - VTE prophylaxis: - SCDs - Chemical prophylaxis - start in the am Acute deconditioning - PT/OT consulted and following - Mobility as tolerated Additional details and other supportive care as per the SISAL OPERATOR note from the same day This patient is critically ill, unstable and is at high risk of imminent or life threatening deterioration due to acute R MCA ischemic stroke, cytotoxic cerebral edema, HTN, afib requiring close neurologic and hemodynamic monitoring to prevent clinical deterioration. I personally spent 32 minutes in the intensive care unit providing critical care services to the patient today independent of procedures, teaching and other care providers. Management of the above was performed. My time managing this critically ill patient included review of interval history, laboratories, radiology and consultation reports; performing a physical examination; discussing the patient with the multi-disciplinary team and managing life sustaining therapies to prevent imminent clinical deterioration. Richard Mejia MD Neurocritical Care Attending documented in this [facility]03-29-2025 Consult note* Niru Koch MD - 08/10/2024 2:12 PM EDT I reviewed this case with the resident/fellow and independently saw, evaluated,and examined the patient on . Lindsay Acuna is a 78 y.o. female who underwent a PEG yesterday- the site looks healthy and normal. Will sign off. . .I have discussed the findings and therapeutic plan with the resident/fellow and agree with the findings and plan as outlined in the GI fellow's note Niru Koch MD * Jonnie Mccabe MD - 08/08/2024 2:37 PM EDTAssociated Order(s): IP CONSULT TO GASTROENTEROLOGY N [facility] IBD Consult WebExchange --> IM Consult Serv [facility] --> [facility] IBD consult service Fellow GASTROENTEROLOGY INPATIENT CONSULT Referring Provider: Felicity Castellano MD Admit Date: 08/02/2024 Reason for Consultation: PEG HISTORY OF PRESENT ILLNESS: Lindsay Acuna is a 78 y.o. female with PMH CAD, HTN, HLD, T2DM, Afib (prev on Eliquis) who presents with L hemiplegia, slurred speech, found to have R M1 occlusion, s/p mechanical thrombectomy. GI is consulted for PEG eval. Patient failed MBS 08/06 with inconsistent silent and since the aspiration of thin, mildly thick thick/nectar. The team, PEG was discussed with spouse at bedside 08/07. Patient also expresses amenability to PEG. PEG checklist - Prior abdominal surgeries: none - Evidence of ileus: none - Prior endoscopies: none - Tolerating TF: yes - Ascites: none - On AC: subcutaneous heparin, aspirin 81 - Agitation/AMS/Hx pulling lines/drains: no - Consentable: no based on assessment today. Consent obtained by at bedside. - NETWORK SUPPORT ENGINEER eval: none - RD eval: none PAST MEDICAL HISTORY: PAST MEDICAL HISTORY No past medical history on file. PAST SURGICAL HISTORY No past surgical history on file. CURRENT MEDICATIONS aspirin 81 mg Per NG tube Daily Atorvastatin 40 mg Per NG tube QHS heparin 5,000 Units Subcutaneous Q8H 0800/1600/2200 Insulin regular 9 Units Subcutaneous Q6H Insulin regular Subcutaneous Q6H Levothyroxine 75 mcg Per NG tube Daily Lisinopril 10 mg Per NG tube Daily Metoprolol 50 mg Per NG tube Q12H Polyethylene glycol 17 g Per NG tube Q12H Senna 17.2 mg Per NG tube Q12H Water liquid (free water) 30 mL Per NG tube Q4H ALLERGIES Not on File SOCIAL HISTORY She has no history on file for tobacco use, alcohol use, and drug use. FAMILY HISTORY No family history on file. REVIEW OF SYSTEMS: Checked box indicates a positive response. Constitutional: [] Weight loss [] Fevers Eyes: [] Problems with vision ENT: [] Nose or sinus problems [] Oral problems [] Throat problems or hoarseness Cardiovascular: [] Chest pain [] Leg pain with walking [] Palpitations [] Ankle swelling Respiratory: [] Shortness of breath [] Persistent Cough [] Wheezing Endocrine: [] Increased Thirst [] Increased Urination Gastrointestinal: [] Heartburn [x] Dysphagia [] Abdominal pain [] Loss of appetite [] Nausea or vomiting [] Diarrhea [] Constipation [] Melena [] Hematochezia [] Scleral icterus or jaundice Skin: [] Rashes Musculoskeletal: [] Trouble walking or standing [] Joint pain [] Muscle pain Allergy/Immune System: [] Allergies [] Frequent Infections Neurological: [] Memory difficulties [] Temporary blindness [] Difficulty speaking [] Headaches [] Numbness Psychiatric: [] Depression [] Suicidal ideation [] Auditory hallucinations Hematological/Lymphatic: [] Lymphadenopathy [] Frequent Nose Bleeds [] Easy Bruising Genitourinary: [] Penile/Vaginal Discharge [] Pain with urination [] Trouble starting urinary stream [] Hematuria PHYSICAL EXAM: Temp: [97.4 F (36.3 C)-97.8 F (36.6 C)] 97.7 F (36.5 C) Pulse (Heart Rate): [66-94] 76 Resp Rate: [12-24] 24 BP: (130-198)/(63-92) 130/78 O2 Sat (%): [94 %-98 %] 98 % Wt Readings from Last 3 Encounters: 08/05/24 78 kg (172 lb) General: No acute distress. Comfortable. HEENT: EOMI, MMM, OP clear. No scleral icterus. Respiratory: no increased WOB Cardiovascular: RRR Abdominal: Soft. ND. NT. No guarding or rebound. No ascites present Neurological: slow speech Extremities: L hemiplegia Skin: Does not appear jaundiced. No rash or lesion. LABS: CBC: Lab Results Component Value Date WBC 10.39 08/08/2024 HGB 14.4 08/08/2024 PLATELET 212 08/08/2024 MCV 93.3 08/08/2024 Chemistry: Lab Results Component Value Date SODIUM 140 08/08/2024 POTASSIUM 4.3 08/08/2024 CHLORIDE 104 08/08/2024 CO2 25 08/08/2024 BUN 35 (H) 08/08/2024 CREATSERUM 1.15 08/08/2024 GLUCOSE 148 08/08/2024 MAGNESIUM 1.7 08/08/2024 Hepatic Panel: Lab Results Component Value Date ALT 10 08/02/2024 AST 17 08/02/2024 ALKPHOS 117 08/02/2024 BILITOTAL 0.6 08/02/2024 BILIDIRECT 0.1 08/02/2024 INR 1.1 08/02/2024 IMAGING/STUDIES: All relevant imaging and procedures were reviewed. ASSESSMENT AND PLAN: Lindsay Acuna is a 78 y.o. female with PMH CAD, HTN, HLD, T2DM, Afib (prev on Eliquis) who presents with L hemiplegia, slurred speech, found to have R M1 occlusion, s/p mechanical thrombectomy. GI is consulted for PEG eval. IMPRESSION # Neurogenic Dysphagia # CVA # Tube feed dependence ASSESSMENT/RECOMMENDATIONS: - primary team feels that group home enteric nutrition is warranted in s/o CVA. Patient is appropriate for endoscopic PEG placement. Consent obtained from at bedside. - we will tentatively plan for EGD for PEG placement 08/09 as add on case. See pre procedure recommendations below. For PEG: - Ancef ordered (1 gm if patient is <80 kg; 2 gm if patient is >80 kg) as "litigation legal assistant to the procedure"). - Please make NPO at midnight, including tube feeds. - Monitor for fevers, will need to be afebrile for >24hours - Check CBC and coags in the AM. Please ensure that hemoglobin is >7, platelets >50 and INR <1.6 - Please hold AM DVT prophylaxis (if applicable) - Anticoagulation infusions will need to be held for 6 hours prior to the procedure (if applicable) - Patient needs outpatient plan for non-GI management of tube feeds following PEG placement This consult was discussed with Dr. Woods, the attending physician. If you have any questions or need any further information, please feel free to contact our consult team. Thank you for this interesting consult and allowing us to participate in the care of Lindsay Acuna. We will continue to follow. Jonnie Mccabe MD Division of Gastroenterology, Hepatology, and Nutrition Clinical Fellow PGY-4 Pager: [phone] For urgent/stat calls 5pm to 7am or all day on the weekend, please page the on- call GI fellow on [email or web address]. IM Consult Serv [facility] --> [facility] STAT/NEW GI consults For follow up questions regarding this patient, contact the IBD consults fellow or DAHLIA on [employer]. IM Consult Serv [facility] --> [facility] IBD consult service Fellow Cosigned by David Woods MD at 08/08/2024 9:57 PM EDT Associated attestation - David Woods MD - 08/08/2024 9:57 PM EDT Attending Note: I saw and personally examined the patient today, 08/08/24, with the resident/fellow. I discussed the findings and therapeutic plan with the resident/fellow. I agree with the history, physical examination, and medical decisions as outlined. Need for taker off braker machine non-oral enteric nutrition per primary team. We will facilitate this with planned PEG tube placement. Before placement, non-GI management of TF should be established to avoid delays. David Woods M.D. * Emelyn Suazo, JASIEL-WOODEN BARREL MECHANIC - 08/05/2024 9:24 AM EDTAssociated Order(s): IP CONSULT TO GERIATRICS Geriatrics IP Consult Service - New Consult Note Assessment and Plan Debility with CVA with left side weakness PT / OT recs for IRF NETWORK SUPPORT ENGINEER as planned for dysphagia DHT for entral nutrition AMS Differential includes CVA, delirium , neurocognitive disorder, medication side effects Last prn acetaminophen prn given yesterday at 2005 Schedule acetaminophen 975mg TID Home oxybutynin currently on hold , continue to hold due to risk of sedation, confusion, fall risks Delirium prevention - recommend nonpharmacologic treatment including: - redirecting/reorienting frequently, reassure the patient - avoid restraints and recommend sitter - early mobilization as medically appropriate - reduce noise and provide adequate light in room - use familiar objects (family photos and items from home) - prevent sleep deprivation - minimize vitals/lab draws at night to promote sleep/wake cycle when medically stable -hydrate and and encourage PO intake when medically appropriate -minimize narcotics as long as pain is adequately controlled -avoid benzo's and anticholinergic medications DM type 2 with CKD IIIa Baseline hgba1C at goal of 7.8 (hgba1C for older adults with comorbidities ~7.5 due to fall risks /hypogycemia) caution with glimeperide due to risk of hypoglycemia which can increase fall risks. Consider optimization of metformin and discontinue glipizide at discharge if concern with hypoglycemia. HPI Reason for consult : debility / CVA Admission date and reason : 08/02/2024 for Acute ischemic right MCA stroke [I63.511] Primary Service : Neurocritical PCP : Kameron Caruso PMH: CKD IIIa, DM, Atrial fib 78 year old female with hx of CAD, DM, atrial fib presented to OSH for left hemiplegia and slurred speech. Found on the ground per spouse. Initial CT head negative. TCA with mid R M! occulusion and transfered to [facility] for management. She underwent thrombectomy with revascularization. Post op day 3. Left eye / temporal laceration repaired. Failed swallow test, DHT placed. Receiving enteral nutrition. Albumin 3.5. 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 Current functional status Basic ADLs - needs assist Instrumental ADLs - dependent Geriatric Syndromes Cognitive function and memory - unable to participate in conversation due to drowsiness History of delirium - Mobility and falls - fall due to CVA, no previous fall hx Sensory impairment - no gross hearing deficit Sleep habits - Elder abuse or neglect - none suspected Tobacco/ETOH/Illegal drugs - none Social - lives with spouse in ranch style home Geriatric Medication Review Oxybutynin recently prescribed for incontinence , has had 2 rx fills Review of Systems Review of Systems: (positives in bold) Review of Systems Unable to perform ROS: Other Constitutional: Drowsy, difficulty keeping eyes open , falls asleep mid sentence History No past medical history on file. No past surgical history on file. No family history on file. Social History Socioeconomic History Marital status: Spouse name: Not on file Number of children: Not on file Years of education: Not on file Highest education level: Not on file Occupational History Not on file Tobacco Use Smoking status: Not on file Smokeless tobacco: Not on file Substance and Sexual Activity Alcohol use: Not on file Drug use: Not on file Sexual activity: Not on file Other Topics Concern Not on file Social History Narrative Not on file Social Drivers of Health Financial Resource Strain: Low Risk (08/03/2024) Overall Financial Resource Strain (CARDIA) Difficulty of Paying Living Expenses: Not hard at all Food Insecurity: No Food Insecurity (08/03/2024) NCSS - Food Insecurity Worried About Running Out of Food in the Last Year: No Ran Out of Food in the Last Year: No Transportation Needs: No Transportation Needs (08/03/2024) NCSS - Transportation Lack of Transportation: No Physical Activity: Not on file Stress: Not on file Social Connections: Not on file Personal Safety: Not At Risk (08/03/2024) NCSS - Interpersonal Safety Feels Physically and Emotionally Safe: Yes Physically Hurt by Someone: No Humiliated or Emotionally Abused by Someone: No Housing Stability: Not At Risk (08/03/2024) NCSS - Housing/Utilities Has Housing: Yes Worried About Losing Housing: No Unable to Get Utilities: No Medications Allergies - Patient has no allergy information on record. Home Medications Reviewed Current Outpatient Medications Medication Instructions Eliquis 2.5 mg, Oral, EVERY 12 HOURS gliMEPIride (AMARYL) 2 mg, Oral, DAILY EVERY MORNING Levothyroxine (SYNTHROID) 75 mcg, Oral, DAILY BEFORE BREAKFAST oxyBUTYnin (DITROPAN) 5 mg, Oral, 3 TIMES DAILY Inpatient Medications Atorvastatin 80 mg Per NG tube QHS heparin 5,000 Units Subcutaneous Q8H 0800/1600/2200 Insulin regular 9 Units Subcutaneous Q6H Insulin regular Subcutaneous Q6H Levothyroxine 75 mcg Per NG tube Daily Metoprolol 25 mg Per NG tube Q6H Penicillin v potassium 500 mg Per NG tube Q12H Polyethylene glycol 17 g Per NG tube Q12H Senna 17.2 mg Per NG tube Q12H Water liquid (free water) 30 mL Per NG tube Q4H Acetaminophen OR Acetaminophen OR Acetaminophen OR Acetaminophen, bisacodyl, Calcium Gluconate OR calcium gluconate, Insulin regular AND BLOOD GLUCOSE (POC DEVICE) AND BLOOD GLUCOSE (POC DEVICE) AND COMMUNICATION ORDER FOR NURSING CARE: For Blood Glucose LESS THAN 80 mg/dl AND Dextrose AND glucose AND NOTIFY PHYSICIAN, Blood Glucose LESS THAN 80 mg/dl, hydrALAZINE OR hydrALAZINE, Labetalol OR Labetalol, magnesium sulfate, Ondansetron 4mg/2ml, potassium chloride OR Potassium chloride OR Potassium Bicarb-Citric Acid OR potassium chloride, sodium phosphate OR sodium phosphate Vital AF 1.2 Ruiz Stopped (08/05/24 0800) Physical Exam Blood pressure 141/89, pulse 99, temperature 97.8 F (36.6 C), temperature source Axillary, resp. rate (!) 34, height 1.702 m (5' 7"), weight 78 kg (172 lb), SpO2 95%. Physical Exam Constitutional: Comments: drowsy HENT: Head: Comments: DHT intact Dry lips Nose: Nose normal. Mouth/Throat: Mouth: Mucous membranes are dry. Cardiovascular: Rate and Rhythm: Normal rate and regular rhythm. Pulmonary: Effort: Pulmonary effort is normal. Breath sounds: Normal breath sounds. Abdominal: Palpations: Abdomen is soft. Comments: Hypoactive bowel sounds PRN med given per nurse this am Genitourinary: Comments: Gallegos (to be removed today) Neurological: Comments: Does not answer questions , mumbles and falls asleep Laboratory Data Reviewed Lab Results Component Value Date WBC 10.61 08/05/2024 HGB 12.6 08/05/2024 HCT 39.6 08/05/2024 PLATELET 198 08/05/2024 MCV 92.1 08/05/2024 Lab Results Component Value Date SODIUM 143 08/05/2024 POTASSIUM 3.8 08/05/2024 CHLORIDE 108 08/05/2024 CO2 25 08/05/2024 BUN 35 (H) 08/05/2024 CREATSERUM 1.45 (H) 08/05/2024 GLUCOSE 242 (H) 08/05/2024 Lab Results Component Value Date ALT 10 08/02/2024 AST 17 08/02/2024 ALKPHOS 117 08/02/2024 BILITOTAL 0.6 08/02/2024 BILIDIRECT 0.1 08/02/2024 Lab Results Component Value Date ALBUMIN 3.5 08/02/2024 Lab Results Component Value Date TSH 1.662 08/02/2024 Lab Results Component Value Date SPGRVTYUR 1.022 08/02/2024 GLUCOSEURINE 500 mg/dL (A) 08/02/2024 KETONESURINE Negative 08/02/2024 BLOODURINE Small (A) 08/02/2024 NITRITESURIN Negative 08/02/2024 LEUKOCESTUR Moderate (A) 08/02/2024 WBCURINE > 20 (A) 08/02/2024 RBCURINE 3-5 (A) 08/02/2024 BACTERIAURIN PRESENT (A) 08/02/2024 Imaging Studies Reviewed ECHOCARDIOGRAM Final Result CT HEAD WITHOUT CONTRAST Final Result IMPRESSION: Stable exam. ABDOMEN 1 VIEW PORTABLE Final Result IMPRESSION: Enteric tube terminates in the expected region of the proximal second portion of the duodenum. HEAD WITHOUT CONTRAST Final Result IMPRESSION: Acute right basal ganglia hemorrhage with surrounding mass effect and midline shift stable since the MRI from earlier today SPINE CERVICAL WITHOUT CONTRAST Final Result IMPRESSION: Grade 1 anterolistheses of C3 on [...] and approved this report. BRAIN WITHOUT CONTRAST Final Result IMPRESSION: Hemorrhagic infarct involving the right basal ganglia with surrounding edema. Mass effect with effacement of the right lateral ventricle and midline shift to the left. 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 ELBOW RIGHT 2 VIEWS Final Result IMPRESSION: No acute osseous abnormality. HUMERUS RIGHT 2+ VIEWS Final Result IMPRESSION: No acute osseous abnormality. WRIST RIGHT 3+ VIEWS Final Result IMPRESSION: No acute osseous abnormality. CHEST WITH CONTRAST VASCULAR TRAUMA Final Result IMPRESSION: No acute traumatic findings within the chest. I personally viewed and interpreted these images and I have reviewed and approved this report. ABDOMEN/PELVIS WITH CONTRAST VASCULAR TRAUMA Final Result IMPRESSION: 1. No acute traumatic findings within the abdomen or pelvis. Hepatic trauma grade: None. Spleen trauma grade: None. Kidney trauma grade: None. ORBITS WITHOUT CONTRAST Final Result IMPRESSION: Motion compromised exam limiting evaluation for subtle fractures. No displaced large fractures identified Partially residual visualization of right basal ganglia hyperdensity concerning for hemorrhage. SPINE CERVICAL WITHOUT CONTRAST Final Result IMPRESSION: Anterolisthesis of C4 over C5 without any underlying fractures or prevertebral soft tissue edema. Findings are likely chronic in nature. Degenerative changes as described above. No evidence of acute fractures identified FLUOROSCOPY OR (Results Pending) Total time spent today with patient and family, reviewing records and in coordinating care = 80 mins. I communicated recommendations to primary team via web exchange / IHIS For after hours and weekend needs, the Geriatrics Consult Service can be reached via [employer] Cosigned by ART Wood at 08/08/2024 10:56 PM EDT * Nando Caceres MD - 08/02/2024 3:04 PM EDT Neurosurgery Thrombectomy Consult Note HPI Ms. Lindsay Acuna is a 78 y.o. female w/ PMH significant for afib on eliquis (unknown LD), LKW of 915 AM, mRS of 0, who presented to OSH with slurred speech, L facial droop, and L sided deficits who presented as an OSH transfer and direct to OR for thrombectomy upon neurovascular request. She takes eliquis (LD unknown) anticoagulants or antiplatelet agents. Baseline mRS 0 LKW 915 AM NIHSS at OSH 12 NIHSS at [facility] 12 CTH Negative for hemorrhage CTA R M1 occlusion CTP CBF<30% NA mL Tmax >6s NA mL mismatch volume NA mL mismatch ratio NA tPA given no ROS: unable to obtain No past medical history on file. No past surgical history on file. No family history on file. Allergies Not on File Infusions Scheduled Meds PRN Meds: Home Meds Prior to Admission medications Not on File Vitals Physical NIH of 12 for AO2 to person and place, L sided neglect, R gaze preference with inability to cross midline, L sided facial droop, no movement in L arm, and antigravity movement in the L leg Labs No results for input(s): "PT", "INR" in the last 72 hours. Imaging: PV FLUOROSCOPY OR (Results Pending) A/P: Lindsay Acuna is a 78 y.o. female w/ PMH significant for afib on eliquis (LD in AM), presentingas stroke alert. Exam and imaging findings consistent with acute R M1 occlusion meeting criteria for emergent revascularization. - to OR emergently for thrombectomy - to be admitted to neurocritical care service under NCCU attending postoperatively Staff: Dr. Ramos Covering: NS2 ([id number]) ## neurosurgery coverage changes at 0530/1730; if 0530 or 1730 has passed since original consult note placed, please page covering resident above ## Complexity. Any conditions listed below are present on admission unless otherwise specified. . Cosigned by Prema Ramos MD at 08/02/2024 4:27 PM EDT Associated attestation - Prema Ramos MD - 08/02/2024 4:27 PM EDT Neurosurgery Attending Attestation: I saw and independently examined this patient today, 08/02/24 and reviewed the pertinent imaging. Idiscussed my findings and the therapeutic plan with the resident. I agree with the DrNahomy's history, physical examination, and medical decisions as outlined in their note dated 08/02/24, additional comments below: This is a 78-year-old woman with a history of atrial fibrillation, noncompliant on Eliquis, who presents with a right MCA syndrome. LKW 0915, mRS 0, NIHSS 12. Head CT with no hemorrhage, CTA concerning for a right M1 occlusion. She did not receive thrombolytics. On arrival to [facility], she was taken directly to the OR emergently for revascularization. Due to the emergent nature of the procedure and lack of immediately available family, we proceeded under emergency consent. Please contact our team with any questions/concerns. Prema Ramos M.D. Histologic Aide Department of Neurosurgery [facility] * Taran Traore, INFANT LEAD TEACHER-WOODEN BARREL MECHANIC - 08/02/2024 2:44 PM EDT Neurovascular Evaluation Note Evaluation Date: 08/02/2024 Unit: UPERI/POOL Consultation was requested by Dr. Prema Ramos MD Patient status: Outpatient Length of stay: 0 days Reason for Consult/Chief Complaint L hemiplegia, slurred speech History of Present Illness October Armand is a 78 y.o. female with PMH significant for CAD, HTN, HLD, T2DM, Afib (on Eliquis, although patient reports she has not been taking it) who presents with L hemiplegia, slurred speech. She was last seen normal by her at 0915, later found down with slurred speech and L hemiplegia. She presented to [facility] and was seen on Telestroke, NIHSS 12. CTH showed no acute hemorrhage or large territory stroke. CTA with mid R M1 occlusion. She was not given IV TNK dueto unclear last dose of Eliquis ( unsure of last dose). She was transferred to [facility] for further management. NIHSS 14 on arrival. Patient reports she does not remember the last time she took her Eliquis. At baseline patient is independent and still drives, mRS 0. Neurosurgery was consulted and patient was taken for mechanical thrombectomy with TICI 2b revascularization. A stroke alert was called for STAT consultation. Arrival Time of Stroke Team : 1442 Time of symptom onset: less than 24 hours Patient Location - Onset of Symptoms: Not in a healthcare setting Patient first presented to an [facility] ED facility: no Last Known Well: Date: 08/02/24 Last Known Well: Time: 914 Source of information: family Review of Systems A complete review of systems was negative except for as stated in HPI. Neurovascular-specific History / Information Home antiplatelet/anticoagulation therapy: Anticoagulation: Eliquis., unclear last dose Patient Current Risk Factors: Stroke risk factors include atrial fibrillation. Prior stroke history: no. Family Hx: unknown Stroke Diagnostic/Treatment Eligibility Information Time Based Thrombolytic Eligibility for IV Treatment 1. Last known well: No Time to thrombolytic delayed due to:Time to thrombolytic delayed due to: N/A Thrombectomy was considered and indicated due to: LVO Stroke Clinical Assessment Information: NIHSS (Provider) Flowsheet Row First Filed Value Provider NIH Stroke Scale NIH Interval (Provider) admission filed on 08/02/2024 1510 NIH Level of Conciousness (Provider) 0 filed on 08/02/2024 1510 NIH LOC Questions (Provider) 1 filed on 08/02/2024 1510 NIH LOC Commands (Provider) 0 filed on 08/02/2024 1510 NIH Best Gaze (Provider) 1 filed on 08/02/2024 1510 NIH Visual (Provider) 1 filed on 08/02/2024 1510 NIH Facial Palsy (Provider) 2 filed on 08/02/2024 1510 NIH Left Arm Motor (Provider) 3 filed on 08/02/2024 1510 NIH Right Arm Motor (Provider) 0 filed on 08/02/2024 1510 NIH Left Leg Motor (Provider) 3 filed on 08/02/2024 1510 NIH Right Leg Motor (Provider) 0 filed on 08/02/2024 1510 NIH Limb Ataxia (Provider) 0 filed on 08/02/2024 1510 NIH Sensory (Provider) 1 filed on 08/02/2024 1510 NIH Best Language (Provider) 0 filed on 08/02/2024 1510 NIH Dysarthria (Provider) 1 filed on 08/02/2024 1510 NIH Extinction and Inattention (Provider) 1 filed on 08/02/2024 1510 NIH Total Score (Provider) 14 filed on 08/02/2024 1510 Is NIH=0 Within 180 min of Last Known Well Time? -- Stroke Scales Flowsheet Row Most Recent Value Modified Matty Scale Score Premorbid (MRSS) 0 filed on 08/02/2024 1510 NIH Total Score (Provider) 14 filed on 08/02/2024 1510 Past Medical History Medical History: No past medical history on file. SURGICAL HISTORY: No past surgical history on file. SOCIAL HISTORY: Medications PRIOR TO ARRIVAL MEDS: Prior to Admission medications Not on File Current Meds: Current Facility Administered Meds: No current facility-administered medications for this encounter. Facility-Administered Medications Ordered in Other Encounters Medication Dose Route Frequency Provider Last Rate Last Admin Sodium chloride 0.9% IV solution Intravenous Continuous PRN Bebo Barboza APRN- LITIGATION SECRETARY New Bag at 08/02/24 1507 Scheduled Meds: Continuous Infusions: PRN Meds: Vitals Objective Findings: Vital Signs (24hrs): There is no height or weight on file to calculate BMI. Lines/Drains/Airways/Wounds: Patient Lines/Drains/Airways Status Active Lines, Drains, Airways, & Wound Overview Name Placement date Placement time Site Days Wound Sheath Site 08/02/24 1500 Right Radial 08/02/24 1500 Radial less than 1 Sheath (CV/NV Access Device) 08/02/24 1500 Arterial 8 Fr 10 cm 08/02/24 1500 -- less than 1 Physical Exam General: Laying comfortably in bed. CV: RRR. Pulmonary: No increased work of breathing, Equal chest rise bilaterally, no audible wheezing. Abdomen: soft, non-tender Ext: No cyanosis, edema, or deformity Skin: No rash Neurological Examination Psych and Mental status: alert; oriented to person, , and month, but not age; good attention Speech/language: dysarthric; comprehension intact; object naming intact; repetition intact Cranial nerves: CN II LHH CN III, IV, PERRL. R gaze preference, able to cross CN V facial sensation intact to light touch bilaterally in V1, V2, V3 CN VII L facial droop CN VIII hearing grossly intact to voice CN IX & X soft palate elevates symmetrically in the midline, CN XI shoulder shrug absent on L CNXII tongue protrudes midline Motor: L hemiplegia Reflexes: Coordination: [id number] intact on the R, unable to test on the L Sensation: Diminished on the L with tactile extinction on L Gait: Deferred Laboratory Results Diagnostics/Procedures: Labs-CBC Labs-Chem 7(PMC) Labs-Coags Additional Labs No results found for: "CHOLESTEROL", "TRIG", "HDL", "LDLCALC", "LDLDIRECT" Labs-Hemoglobin A1C No results found for: "HGBA1C" Imaging Imaging was not analyzed by SHIRA Braxton OSH CT Stroke Head:No acute hemorrhage or large territory stroke OSH CTA Brain/Neck: R M1 occlusion Assessment/Impression Lindsay Acuna present with L hemiplegia, slurred speech likely due to acute Right MCA stroke. Plan -Patient is not a candidate for iv thrombolysis due to unclear last dose of Eliquis -Please admit to Neurocritical care (NCC) attending Dr. Mejia. An "ischemic stroke without IV thrombolysis" order set has been signed and held. -Neurosurgery Consulted for Thrombectomy -Swallow evaluation prior to any oral intake -Aspirin 81 mg orally or 300 mg rectally -Blood pressure goals with SBP less than <220 -Obtain brain MRI, stroke protocol without contrast -ECHO to evaluate cardiac function -Lipid panel, LFTs and HgbA1c to evaluate secondary risk factors for ischemic stroke -Baseline EKG, if not done in ED. Continuous telemetry -PT, OT, Speech and social media marketing specialist consults Other problems: Complexity. Any conditions listed below are present on admission unless otherwise specified. . This plan has been discussed with stroke attending Dr. Kasper and has been communicated to ED and NCCU teams. PATRIZIA Miner 08/02/2024 3:18 PM Cosigned by Delbert Kasper MD at 08/13/2024 1:29 PM EDT Associated attestation - Delbert Kasper MD - 08/13/2024 1:29 PM EDT Date of service: 08/03/24 I have interviewed and examined patient. I have reviewed Resident/Fellow/DAHLIA note and agree with the following highlights, additions, and addendums: Ms. Acuna is a 78F w/ CAD, HTN, HLD, T2DM, Afib (on Eliquis, although patient reports she has notbeen taking it) who presents with L hemiplegia, slurred speech. She was last seen normal by her at 0915, later found down with slurred speech and L hemiplegia. She presented to [facility] and was seen on Telestroke, NIHSS 12. CTH showed no acute hemorrhage or large territorystroke. CTA with mid R M1 occlusion. She was not given IV TNK due to unclear last dose of Eliquis ( unsure of last dose). She was transferred to [facility] for further management. NIHSS 14 on arrival. Patient reports she does not remember the last time she took her Eliquis. At baseline patient is independent and still drives, mRS 0. Neurosurgery was consulted and patient was taken for mechanical thrombectomy with TICI 2b revascularization.Will be admitted to NCCU for post evt management and stroke workup. Stroke to follow along. I personally attended this patient and spent a total time of 45minutes evaluating this patient including clinical assessment, review of chart, medical history imaging, and determining appropriate treatment and workup. Delbert Kasper MD [facility]* RIKI Gonzales - 08/06/2024 9:32 AM EDTAssociated Order(s): SPEECH MODIFIED BARIUM SWALLOW Acute Care Speech Language Pathology Modified Barium Swallow Evaluation Note Diet Recommendations: Recommended Method of Nutrition: NPO, Short-term alternate nutrition Recommended Medication Administration (as appropriate per MD): Non-Oral *Consider limited ice chips following oral care, given strict 1:1 RN supervision to assist in secretions clearance and reduce risk of disuse atrophy. *To prevent potential development of aspiration pneumonia/nosocomial infections, RECOMMEND: Oral care routine q4h and HOB upright as tolerated Discharge Recommendations: Based on the below outcome measures/assessment score(s), MBS, and NETWORK SUPPORT ENGINEER clinical judgment, discharge destination recommendation is: IP Rehab Facility. Patient demonstrates good candidacy for discharge to: IRF. Additional supporting factors include: Impaired swallow functionlimiting nutritional status and safety with oral intake. Acute NETWORK SUPPORT ENGINEER Outcomes Tracking Communicate basic wants and needs?: yes Demo insight/appreciation of deficits?: unable to determine Appreciate deficits - Details: suspect emerging Complete basic problem solving?: unable to determine Current therapy frequency recommendation in acute care: Speech/Lang/Cog Therapy Frequency: 3 times a week Swallow Therapy Frequency: 5 times a week Date of Procedure: 08/06/2024 General Patient Information Name: Lindsay Acuna Gender: female Date of : 1945 Diagnosis and Associated Codes: ICD-10-CM 1. Cerebrovascular accident (CVA), unspecified mechanism I63.9 No past medical history on file. No past surgical history on file. Relevant History: Patient History Comments: Pt is a 78 y.o. female who presents per chart: " PMH significant for CAD,HTN, HLD, T2DM, Afib (on Eliquis, although patient reports she has not been taking it) who presentswith L hemiplegia, slurred speech. LKW 0915 on 08/02, later found down with slurred speech and L hemiplegia. She presented to [facility] and was seen on Telestroke, NIHSS 12. CTH showed no acute hemorrhage or large territory stroke. CTA with mid R M1 occlusion. She was not given IV TNK due to unclear last dose of Eliquis ( unsure of last dose). She [facility]. NIHSS 14 on arrival. Patient reports she does not remember the last time she took her Eliquis. At baseline patient is independent and still drives, mRS 0. Neurosurgery was consulted and patient was taken for mechanical thrombectomy with TICI 2b revascularization. Neuro: Acute R MCA stroke 2/2 R M1 occlusion s/p TICI 2b revascularization with hemorrhagic conversion, Acute R cerebellar stroke OSH CTH: no hemorrhage or large territory stroke OSH CTA brain/neck: R M1 occlusion CTH 08/03: Acute right basal ganglia hemorrhage with surrounding mass effect and midline shift MRI brain: Hemorrhagic infarct involving the right basal ganglia with surrounding edema. Mass effect with effacement of the right lateral ventricle and midline shift to the left. Additional tiny 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" Prior Study: none on file Subjective information: Seen in fluoro suite with RN. Pt stating "I'm thirsty", perseverating on a drink with "flavor". Stating love for diet coke. Pleasant and redirectable throughout Pain: General Pain Documentation (Adult, OB, Peds) Presence of Pain: denies pain/discomfort Presence of Pain Score (Auto-calculated): 0 DVPRS (Defense and Veterans Pain Rating Scale) DVPRS: Rest: 4- mild pain DVPRS: Activity: 4- mild pain Respiratory Status: O2 Sat (%): 96 % (08/06 1300) O2 Device: room air (08/06 1200) Assessment: Consistencies Assessed: This study was conducted in the lateral view, deferred AP due to pt forward positioning, unable to sit upright for minimal time, overall safety concerns. Patient was presented with the following barium consistencies: Varibar Thin Barium: teaspoon x2, straw x2 Varibar Otho Barium: straw x1 Varibar Thin Honey Barium: teaspoon x1 Varibar Pudding Barium: 1/4 teaspoon x1 CRANIAL NERVE EXAMINATION: Cranial Nerve Exam CN V (Trigeminal) normal blink CN VII (Facial) unilateral or bilateral weakness of upper or lower face or both (left droop) CN IX (glossopharyngeal) uvula is midline CN X (Vagus) uvula is midline CN XI (Accessory) (generalized weakness, noting to be leaning forward throughout) CN XII (Hypoglossal) slurred speech Oral phase: Oral Phase Lip Closure: interlabial escape, no progression to anterior lip Tongue Control During Bolus Hold: posterior escape of less than half of bolus Bolus Preparation/Mastication: (NA- deferred with safety concerns) Bolus Transport/Lingual Motion: slowed tongue motion Oral Residue: majority of bolus remaining, residue collection on oral structures Location of Oral Residue: tongue Initiation of Pharyngeal Swallow: bolus head in pyriforms Pharyngeal Phase: Pharyngeal Phase Soft Palate Elevation: no bolus between soft palate and posterior pharyngeal wall Laryngeal Elevation: minimal movement of thyroid cartilage with minimal approximation of arytenoidsto epiglottic petiole Anterior Hyoid Excursion: partial anterior movement Epiglottic Movement: complete inversion Laryngeal Vestibule Closure-Height of Swallow: incomplete Pharyngeal Stripping Wave: present - diminished Pharyngeal Contraction in A/P View: (NA- postioning) Pharyngoesophageal Segment Opening: partial distention/duration, partial obstruction of flow Tongue Base Retraction: trace column of contrast between tongue base and posterior pharyngeal wall Pharyngeal Residue: residue collection on pharyngeal structures Location of Pharyngeal Residue: diffuse (>3 areas) Esophageal Phase: Esophageal Phase Esophageal Clearance In The Upright Position: (NA- postioning) Airway Events: Airway Events: Penetration / Aspiration Scale (PAS) Thin: 7 - Material enters the airway, passes below the vocal folds, and is not ejected from the trachea despite effort, 8 - Material enters the airway, passes below the vocal folds, and no effort is made to eject Liquid- mildly thick (IDDSI 2)/nectar: 8 - Material enters the airway, passes below the vocal folds, and no effort is made to eject Liquid- moderately thick (IDDSI 3)/honey: 8 - Material enters the airway, passes below the vocal folds, and no effort is made to eject Dysphagia- pureed (IDDSI 4): 1 - Material does not enter the airway Strategy Trialed: Effectiveness: Chin tuck, anterior bolus hold and quick swallow, repositioning to more upright None effective to eliminate aspiration of liquids Increased viscosity with mild and moderately thick None effective to eliminate aspiration of liquids Impressions: Lindsay Acuna was seen for Modified Barium Swallow Study and presents with moderately severe oropharyngeal dysphagia (per OSEAS Level 2) s/p admission for 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 Oral phase characterized by reduced bolus control with preswallow spillage to pharynx. Pharyngeal phase characterized by complete epiglottic inversion however reduced hyolaryngeal elevation/excursion, incomplete laryngeal vestibule closure. Aspiration of liquids prior to the swallow as well as during the swallow. Strategy of anterior bolus hold, quick swallow and strategy of repositioning to upright not consistently effective to improve timing of swallow/bolus location at time of swallow (also unable to hold upright positioning). Increased liquid viscosity also not effective to eliminate aspir ation during the swallow. Pt initially sensate to aspiration with cough response, later no sensate response. Spontaneous and cued coughs not effective to eject material. Mild diffuse residue improving with subsequent swallows. Per the Dynamic Image Grade of Swallow Toxicity (DIGEST), safety was rated a 4 (profoundly unsafe) and efficiency was rated a 1 (mildly inefficient). With regard to safety and efficiency, swallowing function was rated 3, most consistent with severe risk of nutrition or aspiration related complications. In weighing the patient's deficits against the aforementioned DIGEST scale as well as ineffectiveness of all strategies, recommend NPO and nonoral meds. Ongoing skilled NETWORK SUPPORT ENGINEER services indicated to address deficits and maximize functional recovery. Given inconsistent sensate response to aspirationevents, recommend repeat swallow study in ~1 week to progress plan of care. Patient Education/Instruction Learners: Patient Education provided: Plan of care, Role of this discipline, Dysphagia recommendations/impressions, Positioning, Safety Teaching method: Verbal Education/Instruction Learner response: Needs review Learning preferences: Auditory Learning considerations: Cognition Patient Instruction/Education comments: Review of MBS with noted deficits in swallow safety with sensate and silent aspiration of all liquids despite strategies Plan for next session: 08/06: Good, ongoing PO challenge trials and dysphagia exercises, family [facility] RECOMMENDATIONS: Swallow Recommendations Recommended Method of Nutrition: NPO, Short-term alternate nutrition Recommended Medication Administration (as appropriate per MD): Non-Oral Recommended Rehab Activities: bolus manipulation exercises, pharyngeal contraction/effortful swallow Assessment Criteria For Skilled Therapeutic Interventions Met: yes, treatment indicated Acute NETWORK SUPPORT ENGINEER Goals Plan of Care by Tanja Hunter NETWORK SUPPORT ENGINEER at 08/06/2024 9:33 AM Version 1 of 1 Problem: Dysphagia Goal: MBS - Patient will participate in Modified Barium Swallow (MBS) Study to objectively assess oropharyngeal swallow function to most appropriately guide NETWORK SUPPORT ENGINEER plan of care Outcome: Met Goal: Bolus challenge - Patient will accept trials of various liquids x10-12 trials, given moderatecues for use of strategies to improve bolus control/timing of swallow initiation with no signs of aspiration to determine readiness for repeat study Outcome: Ongoing Goal: Effortful Swallow Goal - Patient will complete repetitions of effortful swallow until reaching a self-reported level of fatigue (7/10 rating) to improve pharyngeal clearance and airway protection during the swallow Outcome: Ongoing Goal: TORO- Patient will complete isometric exercises (5 repetitions with a 10- second interval between the sets for a maximum of 2 sets) to improve pharyngeal swallow given fading verbal cues for formand pacing over x3-5 sessions Outcome: Ongoing Time In: 931 Time Out: 951 Total Visit Time: 20 minutes Total Treatment Time (skilled, billable minutes): 20 minutes NETWORK SUPPORT ENGINEER Evaluation and Treatment Time MBS/Motion Fluoroscopic Swallowing Eval 85915: 20 Speech Language Pathologist: RIKI Gonzales Time In: 931 Time Out: 951 Total Visit Time: 20 minutes Total Treatment Time (skilled, billable minutes): 20 minutes Non-billable assistance during session: NA Assisted by during session: RA Melendez PPE used during patient interaction: gloves Patient location/status at end of session: bed with head of bed elevated Patient alarms at end of session: none altered (RN present) NETWORK SUPPORT ENGINEER Evaluation and Treatment Time MBS/Motion Fluoroscopic Swallowing Eval 10503: 20 Upon discontinuation of Acute Care Speech Therapy Services or patient discharge from the hospital this note represents the current Speech Therapy Discharge Summary documented in this [facility]03-25-2025 Hospital Discharge instructions* Discharge Instructions* Jhoana Casarez INFANT LEAD TEACHER-WOODEN BARREL MECHANIC - 08/06/2024 8:38 AM EDT Please take these discharge instructions to your primary care doctor follow appointment to show them,keep them for your reference and refer to them often for follow up appointments. It is best to write your appointments on a personal calendar so you do not miss them. Call if you need to change any appointments please. Keep an up-to-date medication list with you at all times. Stroke Education: visit [email or web address] What are the most common symptoms of stroke? The following are the most common symptoms of stroke. However, each individual may experience symptoms differently. If any of these symptoms are present, call 911 (or your local ambulance service) immediately. Treatment is most effective when started immediately. Symptoms may be sudden and include: -Weakness or numbness of the face, arm, or leg, especially on one side of the body -Confusion or difficulty speaking or understanding -Problems with vision such as dimness or loss of vision in one or both eyes -Dizziness or problems with balance or coordination -Problems with movement or walking -Severe headaches with no other known cause, especially if sudden onset All of the above warning signs may not occur with each stroke. Do not ignore any of the warning signs, even if they go away - take action immediately. The symptoms of stroke may resemble other medical conditions or problems. Always consult your physician for a diagnosis. We have provided both written and verbal education to the patient and family regarding ischemic andhemorrhagic strokes. We have discussed the warning signs/symptoms as well as causes of stroke. We have discussed the importance of activating 911/EMS in the event of these symptoms. We have reviewed the patient's personal risk factors as well as education on reducing these risk factors. [facility] Personalized Stroke Treatment Plan My Stroke Type: [x] Ischemic Stroke (Blockage of blood flow to the brain) [] Hemorrhagic Stroke (Bleeding in the brain) [] TIA- Transient Ischemic Attack (mini-stroke) My Risk Factors Include: [x] High Blood Pressure [x] Diabetes [x] High Cholesterol [x] Heart Disease [x] Atrial Fibrillation (Irregular Heart Rate) [] Smoking/Vaping/E-Cigarettes [] Obesity [] Clotting Disorder [] Alcohol Abuse [] Drug Abuse [] Prior History [] Family History [] Obstructive Sleep Apnea My Follow-Up Treatment Goals: [x] Blood Pressure < 140/90 [] Stop Smoking, Vaping, and/or using E-Cigarettes Immediately [x] LDL < 70 [x] HgA1C levels < 7% [] Decrease BMI to < 25 [x] Take all ordered medications [x] Avoid non-prescription or ytkm-atg-kzepyth medication not cleared by your physician [x] Limit Alcohol use to no more than 1 drink per day for females and 2 drinks per day for males [] Do not drive until cleared [x] Follow up with PCP (Primary Care Provider) within a week of discharge to home [x] Follow-up with Neurovascular (Stroke Doctor) [x] Follow-up with Occupational,physical and speech therapy if ordered [x] Watch out for depression and seek treatment if needed Patient Stroke Resources CONTACTS FOR NEUROVASCULAR SERVICE: - Please first consider reaching out to your PCP (Primary Care Provider) for ongoing care needs andguidance. - You may call the neurovascular doctors office at [phone], if you have questions Mon-Fri between 8:30 am and 4:30 pm. - For off hours or the weekend you may call the office or the hospital drying machine operator at and ask for the stroke resident litigation legal assistant to be paged. - If you have any other questions or needs, please call Aniyah DOSS, RN, Stroke Nurse Navigator at [phone] Mon-Mon between 7:00am and 3:00pm. - Additional assistance may be found by reaching out to our Case Management Office at [phone]. *In the event of an Emergency: If you have a physical or psychiatric emergency call 441 or go to your local emergency department. You should also call your outpatient provider's emergency number. Other reference numbers: [facility] Intake Office at [phone]; [facility] at 517-175-0486; or Suicide Prevention Hotline at 878-690-5546. *Helpful phone numbers: Free Crisis Hotline: 9-980-552-TALK ( ) Suicide Hotline: 590.831.4930 Seniors Suicide Hotline: 891.514.8351 [facility] Youth: 744.427.6105 Mental Health of [place]: 691.418.3760 (free counseling) [facility] Access Hotline: 876-827-YJAT (371-385-8781) 24-hour crisis text hotline: Text the word "4hope" to 233-684 for crisis support. Texting this number is free if you have Verizon, T-Mobile, AT[employer] or Sprint. [facility] Financial Assistance: If you want to learn more about these programs, please call .There are three programsto help you with the cost of your medical care: Medicaid, Hospital Care Assurance Program (HCAP) & elle If you are without Insurance and believe you may qualify for Medicaid/public assistance: The [facility] Department of Job and Family Services can now process zayas (TANF), food (SNAP) and Medicaid Applications over the phone. Please call [phone] ([phone]) and apply over the phone or apply online at www.benefits.[place].gov. Monday-Monday 8am-12pm noon. Medication Assistance Programs [employer] members can buy 100+ common prescriptions for FREE, $3 or $6. Annual membership is $36 for individuals and $72 for families (up to 6 people, including pets). Sign up online or enroll at your nearest pharmacy! -[employer], web site can provide a significant number of coupons for medications at a much lower raymundo. [place] Department of Aging The Department of Aging administers programs and services to meet the needs of older [place]. Services and resources offered per county may include transportation, housekeeping, meals and nutrition, personal care, case management, safety monitoring, home medical equipment, legal services, financial planning adviser, health and wellness, education, caregiver support, respite care, etc. Call to be connected to the area agency on aging serving your community or visit aging.[place].gov/find-services. Request a consultation with a community resource expert at ltssi.age.[place].gov/ [facility] Stroke Support The [facility] Stroke Support Group is for stroke survivors, friends, and family members. Meets on the Monday of each month from 6:30pm-7:30pm at [facility] ([address]; [place] [address]). Contact Chela Nolan, at [phone] or [email or web address]. If you are outside of the [facility], contact The [place] [employer] at www.stroke.org or 7-292-0-STROKE or for support groups in your area. You may also refer to the Your Care after a Stroke education booklet at [email or web address] for additional resources. * Medications* PATRIZIA Miner - 08/06/2024 8:38 AM EDT Know your medicines Make sure you know why you are taking each medicine. Make a master list of all your medicines. Write down the medicine names and doctors' names. Includedoses and side effects too. And write down why you take each medicine. Include all prescription dsywjxk-gbq-cbivkay medicines, vitamins, and supplements. Keep this list up to date. Take a copy to each doctor visit. Know when you will run out of each medicine. Ask your pharmacist if there are ways the drugstore can remind you to refill your medicines so you do not run out. Write refill reminders on your calendar. Don't wait until you have a few pills left. Ask your pharmacist to plan your refills so that you can tile picker all your medicines at the same time. This can mean fewer trips to the drugstore. If we have prescribed you a new medication during your stay, please contact with your primary physician for refills * Discharge Instr - Activity* PATRIZIA Miner - 08/06/2024 8:38 AM EDT Activity -- Please follow these instructions: -Advance your activity as you can tolerate - You may walk all you want. You may go up and down the steps. Use the railing for support - It is normal for your energy level and sleep patterns to change after a stroke - Take rest periods during the day as needed - Complete recovery may take several weeks, months, up to a year. Patience is escobar. * Discharge Instr - Diet* PATRIZIA Horowitz - 08/14/2024 7:36 AM EDT Tube feeds via PEG * Discharge Instr - Notify* PATRIZIA Miner - 08/06/2024 8:38 AM EDT Notify Your Doctor if you have any of the following: NEUROLOGICAL CHANGES-- Change in alertness Increased sleepiness Nausea and vomiting New onset of numbness or weakness in arms or legs New problems with your bowels or bladder New or worse problems with balance or walking Seizures, new or worsening UNRELIEVED HEADACHE PAIN-- New or increased pain unrelieved with pain medications Pain associated with nausea and vomiting Pain associated with other symptoms QUESTIONS OR PROBLEMS-- Any questions or problems that you are unsure about Deep Vein Thrombosis Symptoms Call your doctor or nurse right away if you have any signs of blood clots such as -Tender, swollen or reddened areas anywhere in your leg. -Numbness or tingling in your lower leg or calf, or at the top of your leg or groin -Skin on you leg looks pale or blue or feels cold to touch -Chest pain or have trouble breathing -Fever or chills * Discharge Instr - Wound Care* PATRIZIA Horowitz - 08/14/2024 7:36 AM EDT PEG TUBE CARE - Cleanse site daily with soap and water - When tube not in use, flush with half a cup of water daily to keep tube from getting clogged. - Your Peg Tube needs to be changed every 6 months. documented in this [facility]03-21-2025 History and physical note* PATRIZIA Lam - 08/02/2024 6:00 PM EDT NEUROCRITICAL CARE HISTORY AND PHYSICAL HOSPITAL VISIT DEMOGRAPHICS Patient: Lindsay Acuna Code status: Full Code Admission date: 08/02/2024 3:02 PM Hospital days: LOS: 0 days CHIEF COMPLAINT Left hemiplegia and slurred speech HISTORY OF PRESENT ILLNESS Lindsay Acuna is a 78 y.o. female with a past history of hypothyroid, CKD stage 3a, CAD, HTN, HLD, T2DM, Afib (on Eliquis, unsure of last dose) who presents with Left hemiplegia and slurred speech. She presented to [facility] on 08/02, seen on tele stroke with NIH of 12. Imaging revealed mid R M1 occlusion.She did not receive thrombolytics as unsure of her last Eliquis dose. [facility]. On arrival her NIH was 14, mRS 0, and she was taken for thrombectomy with NSGY with TICI 2b revascularization. She was admitted to [facility] postop. INTERVAL HISTORY SINCE ADMISSION 08/02/2024: admitted to [facility] REVIEW OF SYSTEMS Review of systems not obtained due to stroke/postop. HISTORY No past medical history on file. No past surgical history on file. Social History Socioeconomic History Marital status: Not on file Spouse name: Not on file Number of children: Not on file Years of education: Not on file Highest education level: Not on file Occupational History Not on file Tobacco Use Smoking status: Not on file Smokeless tobacco: Not on file Substance and Sexual Activity Alcohol use: Not on file Drug use: Not on file Sexual activity: Not on file Other Topics Concern Not on file Social History Narrative Not on file Social Drivers of Health Financial Resource Strain: Not on file Food Insecurity: Not on file Transportation Needs: Not on file Physical Activity: Not on file Stress: Not on file Social Connections: Not on file Personal Safety: Not on file Housing Stability: Not on file ALLERGIES AND HOME MEDICATIONS Allergies: has no allergies on file. Home Medications: Medications Prior to Admission Medication Sig Dispense Refill Last Dose/Taking Eliquis 2.5 MG tablet Take 1 tablet by mouth every 12 hours. gliMEPIride 2 MG tablet Take 1 tablet by mouth daily every morning. Levothyroxine 75 MCG tablet Take 1 tablet by mouth every morning before breakfast. oxyBUTYnin 5 MG tablet Take 1 tablet by mouth 3 times daily. Prior to Arrival Meds: Medications Prior to Admission Medication Sig Dispense Refill Last Dose/Taking Eliquis 2.5 MG tablet Take 1 tablet by mouth every 12 hours. gliMEPIride 2 MG tablet Take 1 tablet by mouth daily every morning. Levothyroxine 75 MCG tablet Take 1 tablet by mouth every morning before breakfast. oxyBUTYnin 5 MG tablet Take 1 tablet by mouth 3 times daily. Hospital Medications: Infusions: Sodium chloride 0.9% Scheduled: [START ON 08/03/2024] aspirin 81 mg Oral Daily Or [START ON 08/03/2024] aspirin 300 mg Rectal Daily [START ON 08/03/2024] enoxaparin 40 mg Subcutaneous Daily Senna 8.6 mg Oral QAM Or Senna 8.6 mg Per NG tube QAM PRN: Acetaminophen OR Acetaminophen OR Acetaminophen OR Acetaminophen, Calcium Gluconate OR calcium gluconate, hydrALAZINE OR hydrALAZINE, Labetalol OR Labetalol, magnesium sulfate, Polyethylene glycol OR Polyethylene glycol, potassium chloride OR Potassium chloride OR Potassium Bicarb-Citric Acid OR potassium chloride, sodium phosphate OR sodium phosphate PHYSICAL EXAM GENERAL: Alert, no acute distress HEENT: normocephalic, no scalp wounds nor lesions CARDIO: +S1S2, no edema PULM: equal chest rise; on RA ABDOMINAL: soft, nontender, nondistended, active bowel sounds EXTREMITIES: no wounds or lesions noted, R radial angio site with no ecchymosis VASCULAR: 2+ distal pulses, capillary refill <3 seconds NEURO: Mental status: alert; oriented to person, place, year; disoriented to month and age. good attention Speech/language: dysarthria Cranial nerves: CN II: Visual richards intact to confrontation. PERRL. 3mm iron pellet tester III, IV and : EOMI. No nystagmus. CN V: Facial sensation intact to light touch. CN VII: facial droop CN VIII: Hearing is grossly intact. CN IX and X: Soft palate elevates symmetrically in the midline CN XI: Shoulder shrug and sternocleidomastoid strength 5/5 RUE, 1/5 LUE CN XII: Tongue is midline with normal movement; no fasciculations Motor: Normal bulk and tone. LUE weakness Sensation: Extremity sensation intact throughout. Coordination: No ataxia, dysmetria FTS - Daily NIHSS: NIH Stroke Scale: NIH Level of Conciousness (Provider): 0 NIH LOC Questions (Provider): 1 NIH LOC Commands (Provider): 0 NIH Best Gaze (Provider): 0 NIH Visual (Provider): 0 NIH Facial Palsy (Provider): 2 NIH Left Arm Motor (Provider): 3 NIH Right Arm Motor (Provider): 0 NIH Left Leg Motor (Provider): 1 NIH Right Leg Motor (Provider): 0 NIH Limb Ataxia (Provider): 0 NIH Sensory (Provider): 1 NIH Best Language (Provider): 0 NIH Dysarthria (Provider): 1 NIH Extinction and Inattention (Provider): 0 NIH Total Score (Provider): 9 ASSESSMENT AND PLAN Neuro: (08/02/2024) * Day of Surgery * R M1 occlusion sp TICI 2b reperfusion after 1 pass mechanical aspiration (08/02) Acute R MCA CVA - Initial CVA Management: - 08/02 Stroke alert performed; summary of imaging findings: mid R M1 occlusion - no thrombolytics as unsure of last Eliquis dose - 08/02 NSGY consulted for thrombectomy, performed and obtained TICI 2b revascularization - Ongoing CVA management: - Monitor neurostatus with neurochecks Q1H and pupilometer Q1H - Prevent cerebral hypoperfusion with goal SBP <180 (see cards) - Imaging: - 08/[address] H: no acute hemorrhage or large territory stroke - 08/02 CTA: R M1 occlusion - MRI B: Pending - antiplatelet therapy: ASA 81 mg daily start 08/03 - Cytotoxic Cerebral Edema Management: - Goal Na 135 - 145; monitor Na with am labs No results for input(s): "SODIUM", "OSMOLALITY", "CHLORIDE" in the last 72 hours. - Stroke etiology presumed to be cardioembolic based on the TOAST Criteria. Stroke risk factors include atrial fib., CAD, diabetes, hypercholesterolemia, and hypertension. - Complete TTE (see cards) - Obtain LDL level and statin therapy if indicated (see cards) - Obtain HA1C level (see endo) - Initiate antiplatelet therapy within 48H of admission (see cards) - Initiate VTE prophylaxis immediately if no tPA given or 24H post-thrombectomy if performed (see heme) - Develop therapeutic anticoagulation plan, if indicated based on CVA etiology (see cards) - Consider urine drug screen on admission if no stroke risk factors - Consider hypercoagulability panel 24H-post tPA if no stroke risk factors Pain/Sedation management: - Tylenol 650mg Q4H PRN Psych: No Current Issues Pulm: No Current Issues O2 Sat (%): 94 % (08/02 1800) O2 Device: room air (08/02 1715) Flow (L/min): 4 (08/02 1544) - Goal SpO2 >92%; wean FiO2 as tolerated - HBC6AWP, encourage pulmonary toileting Cards: Essential HTN HLD Atrial Fibrillation CAD Temp: [98.2 F (36.8 C)] 98.2 F (36.8 C) Pulse (Heart Rate): [78-91] 85 Resp Rate: [10-24] 22 BP: (144-197)/(66-89) 153/72 O2 Sat (%): [94 %-98 %] 94 % - Goal SBP <180, MAP >65 HTN - Home antihypertensives: not filling home atenolol 50 mg daily and Ramipril 20 mg daily - Current regimen: - PRN labetalol and hydralazine HLD - Statin Therapy: resume home atorvastatin 80 mg (not filling) - LDL: Pending Afib - hold home Eliquis 2.5 mg BID (has been filling) Diagnostics - TTE: p - 08/02 troponin: p - 08/02 ECG: p Renal/: CKD stage 3a Urinary incontinent Fluid Balance: - Goal: euvolemia - Maintenance: none Intake/Output Summary (Last 24 hours) at 08/02/2024 1824 Last data filed at 08/02/2024 1630 Gross per 24 hour Intake 200 ml Output 550 ml Net -350 ml Urinary incontinent - hold home oxybutynin - Daily Chem 10; electrolytes replaced per [facility] protocol No results for input(s): "SODIUM", "POTASSIUM", "CHLORIDE", "CO2", "BUN", "CREATSERUM", "PHOSPHORUS", "MAGNESIUM", "ICA", "CPK" in the last 72 hours. GI/Nutrition: No Current Issues No results for input(s): "ALBUMIN", "BILIDIRECT", "BILITOTAL", "ALKPHOS", "ALT", "AST", "TP", "AMYLASE", "LIPASE" in the last 72 hours. - DIET NPO WITHOUT meds - Bowel regimen: - - Senna, miralax Stress ulcer prophylaxis: - none Endo: DM Type 2 Hypothyroid DM - Goal blood glucose 140-180 - home regimen: Glimepiride 2 mg daily, metformin 1000 mg daily - current regimen: Insulin SSI regular Q6H - A1c: pending No results for input(s): "GLUCOSE", "HGBA1C" in the last 72 hours. Hypothyroid - continue home synthroid 75 mcg daily ID: No Current Issues No results for input(s): "WBC", "LACT", "PROCALCITONI" in the last 72 hours. - Temp (24hrs), Av.2 F (36.8 C), Min:98.2 F (36.8 C), Max:98.2 F (36.8 C) - PRN Tylenol for T>100.4F - Most recent and positive cultures: Date Collected Source Result Date Finalized 08/02 Staph nasal swab P 08/02 UA P - Antiinfectives: Start Date Antiinfective Coverage Course Length Stop Date Heme/Onc: No Current Issues No results for input(s): "WBC", "RBC", "HGB", "HCT", "PLATELET", "PT", "PTT", "INR", "FIBRINOGEN" in the last 72 hours. - Goal plt >100, INR <1.4, Hgb >7 - OR EBL: minimal DVT prophylaxis: - chemical dvt ppx held post thrombectomy Musc: No Current Issues - PT/OT consulted and following - Current Activity Order: AAT Fall Risk: - Assessed for patient fall risk and discussed safety measures during rounding. Social/Dispo: - Code status: Full Code - 08/02: Medications reconciled - Discharge planning per PCRM/SW. Complexity. Any conditions listed below are present on admission unless otherwise specified. . ICU Checklist: [x] Assess pain Presence of Pain: not present: non-verbal indicator of pain/discomfort Presence of Pain Score (Auto-calculated): 0 [x] Both SAT & SBT [x] Choice of analgesia/ sedation See neuro [x] Delirium [x] Early mobility PT/OT consulted?: Yes [x] Family Engagement Primary Emergency Contact: AcunaIke, Last updated: 08/02 by surgical team [x] Prophylaxis VAP: N/A Stress ulcer prophylaxis: not indicated DVT: no chemical prophylaxis - rationale: post thrombectomy [x] Lines Clothier: n/a Gallegos: n/a Rectal tube: n/a Enteral access: inserted /, [ ] gastric; [ ] post-pyloric CENTRAL LINES: Central Line Indications: No line currently in place Can line/s be removed today? No line in place at this time Dressing/s Clean/Dry/Intact?: No line currently in place Discussed with NCCU Attending, PATRIZIA Ennis 08/02/24 6:24 PM Check the treatment team to find the assigned neurocritical care provider (resident, fellow, SISAL OPERATOR, orPA) or page/call the corresponding number below NCC1 (Beds [phone]): [facility]aris # [phone], pager #[phone] NCC2 (Beds [phone], 12 [address]ando, and overflow): [facility]aris #: [phone], pager #[phone] Cosigned by Richard Mejia MD at 08/02/2024 11:14 PM EDT documented in this encounterU [facility]03-21-2025 Nurse Note* Rachell Ruffin RN - 08/02/2024 3:13 PM EDT 9 cc air instilled in right radial TR band @ 1520. Glasses placed in bag wit label. Sent to PACU with patient on cart. documented in this encounterU [facility]03-21-2025 Discharge summary [facility] Medical Records Department [address] [place] [address] Emergency Department Summary 08/02/24 MR#: [id number] Acct: [id number] Name: LINDSAY ACUNA Rep #:[id number] : 1945 78 From: Pieter Morgan MD PCP: Dr. Kameron Caruso MD Status:RE G ER Location: ED HPI History of Present Illness Chief Complaint: Stroke Alert Informant: patient and EMS Narrative Narrative: Patient presenting from home by EMS as a prehospital stroke alert. Last seen normal 9:15 AM, arrives 12:20 PM approximately. found her lying on the floor about 10 or 20 minutes prior to noon when he came home from work. Patientamnestic about all events since he left for work, but states shethinks she remembers taking her medications this morning. EMS states left-sided weakness resulting in a fall and a minor injury to her left temporal area of her face. Unknown medications per EMS. Prehospital blood pressure and vital signs and BGTnoted. Patient confirms she takes Eliquis which is onher list in the EMR. states they returned home from [facility] about 1.5-2 weeks ago, and they both had colds. He is better, but she is "on round 2." [facility] Medical History Paroxysmal atrial fibrillation with RVR Coronary artery disease Essential hypertension Hyperlipidemia Kidney disease Type 2 diabetes mellitus without complication Goiter Diverticulosis Home Medications ?Medication ?Instructions ?Recorded ?Last Taken ?Type apixaban 2.5 mg tablet (Eliquis) 2.5 mg PO BID 5 Unknown History atenolol 50 mg tablet 50 mg PO QDAY 07/03/24 Unkno wn History atorvastatin 80 mg tablet 80 mg PO QHS 07/03/24 Unknow n History doxycycline hyclate 100 mg capsule 100 mg PO BID 07/03 Unknown History glimepiride 2 mg tablet 2 mg PO QAM 07/03/24 Unknown History levothyroxine 75 mcg tablet 75 mcg PO 6XW 07/03/24 Unk nown History metformin 500 mg tablet,extended 1,000 mg PO QDAY 06/15 02/06 Unknown History release 24 hr oxybutynin chloride 5 mg 5 mg PO QDAY 07/03/24 Unknow n History tablet,extended release 24 hr amoxicillin 500 mg capsule 500 mg PO Q8H 08/02/24 Unkn own History Allergy/AdvReac Type Severity Reaction Status Date / Time benzocaine Allergy Unknown Rash Verified 08/02/24 12:45 perfume Allergy Unknown Shortness Verified 08/02/24 12:45 of breath Sulfa (Sulfonamide Allergy Unknown Unknown Verified 08/02/24 12:45 Antibiotics) cocaine AdvReac Unknown Inverted T Verified 08/02/24 12:45 waves Family History (Updated 07/03/24 @ 10:19 by Bertha Turpin) Mother Diabetes Hypertension Psychiatric disorder Grandmother Cancer Sister Thyroid disorder Surgical History History of cyst of breast History of History of bilateral cataract extraction History of open reduction and internal fixation (ORIF) procedure History of colonoscopy (~2021) Social History Smoking Status: Never smoker alcohol intake: never substance use type: does not use ROS ROS ED Constitutional Constitutional ED: Denies chills or fever(s) Eyes Eyes: Denies change in vision or diplopia ENT ENT ED: Denies rhinorrhea or sore throat Cardiovascular Cardiovascular: Denies chest pain or palpitations Respiratory/Chest Respiratory/Chest: Denies cough or dyspnea Gastrointestinal Gastrointestinal: Denies abdominal pain, diarrhea, nausea or vomiting Genitourinary Genitourinary ED: Denies dysuria or hematuria Musculoskeletal Musculoskeletal: Denies back pain or neck pain Integumentary Denies abscess or rash Neurologic Neurologic: Reports weakness; Denies headache(s) EXAM Physical Exam Const Vital Signs: 08/02/24 12:37 08/02/24 12:41 08/02/24 12:46 Temperature 98 F Temperature Source Oral Pulse Rate 99 99 Respiratory Rate 17 16 Blood Pressure 172/99 H 157/86 H Blood Pressure Mean 123 109 Pulse Ox 98 96 Oxygen Delivery Method Room Air Room Air Room Air 08/02/24 12:54 Temperature Temperature Source Pulse Rate 98 Respiratory Rate 18 Blood Pressure 163/97 H Blood Pressure Mean 119 Pulse Ox 97 Oxygen Delivery Method Room Air Positive well nourished and well developed General Appearance ED: well developed and NAD HEENT Reports moist mucous membranes HEENT Narrative: Contusion/abrasion left temporal forehead, just left of the orbit. Zygomatic arch intact and nontender without crepitance or deformity. No hematoma. No other signs of HEENT trauma. normocephalic and trauma Eyes PERRL and EOMs intact bilaterally Neck full ROM and supple Resp normal respiratory effort and clear to auscultation bilaterally Cardio no murmurs Rhythm: abnormal rhythm irregularly irregular GI non-tender and non-distended Auscultation: normoactive bowel sounds Palpation: soft Back/Spine no CVA tenderness General Back: other FROM Extremity normal to inspection Extremity Narrative: Distal pulses intact x 4 General Extremety ED: Negative for edema, pulses abnormal or tenderness General Extremity: Negative for edema or pulses abnormal Neuro Neuro Narrative: Dense weakness left arm and leg and left lower face. Raises eyebrows normally. Has some hemineglectwith regards to vision although she is able to overcome gazing left with reflexive movements, and visual richards appear to be intact, as well as hemineglect of the leg. Sensorium / Orientation: awake and alert Psych mental status grossly normal Skin no rashes or lesions noted and no wounds NIHSS NIHSS Initial: 1a Level of Consciousness: 1 1b LOC Questions (Score 2 if aphasic/stupor): 1 1c LOC Commands (Only score 1st attempt): 0 2 Best Gaze (If aphasic, use reflexive mvmts.): 1 3 Visual: 0 4 Facial Palsy: 2 5 Motor Arm Right (UN = amputation/fusion): 0 5 Motor Arm Left: 4 6 Motor Leg Right: 0 6 Motor Leg Left: 3 7 Limb ataxia (Only + if out of proportion): 0 8 Sensory (Aphasia/stupor=0 or 1, coma=2): 2 9 Best Language: 0 10 Dysarthria (mute, coma=2, intubated=UN): 1 11 Extinction and Inattention (only scored if +): 2 Total Score: 17 MDM MDM MDM Narrative Medical decision making narrative: Patient initially seen in the EMS bay, sent directly to CT and reevaluated more thoroughly once patient arrived to the room and the arrived to provide more history, see HPI. Patient think shelast took her Eliquis this morning, the plain CT shows no hemorrhage. The states that she is inconsistent with taking her medications sometimes and so he did not know when she last took it. Given the history, the stroke neurologist and I both agree that it is too risky to give her TNK giventhat history. Spoke with Dr. Voss with stroke neurology at 1255, who was able to view the CTA imaging and confirms that there is a right MCA M1 LVO and recommends that wetransfer the patient there soon as possible. [facility] contacted for air transport. Discussed with and patient, they are comfortable with [facility] transfer. Lab Data Attestation: I reviewed the patient's lab results. Labs: Laboratory Results - last 24 hr 08/02/24 12:40 WBC 8.7 RBC 4.56 Hgb 13.8 Hct 42.0 MCV 92.1 MCH 30.3 MCHC 32.9 RDW Std Deviation 45.3 H RDW Coeff of Blake 13.3 Plt Count 214 MPV 10.7 Immature Gran % (Auto) 0.300 Neut % (Auto) 71.4 H Lymph % (Auto) 17.9 L [place] % (Auto) 8.9 Eos % (Auto) 1.0 Baso % (Auto) 0.5 Absolute Neuts (auto) 6.2 Absolute Lymphs (auto) 1.56 Nucleated RBC % 0 PT 14.1 INR 1.1 APTT 28.4 Sodium 132 L Potassium 4.2 Chloride 98 Carbon Dioxide 22.0 Anion Gap 12 BUN 20 H Creatinine 1.74 H Estim Creat Clear Calc 27.14 L Est GFR (MDRD) Non-Af 29 L BUN/Creatinine Ratio 11.6 Glucose 235 H Calcium 9.0 Troponin T High Sens 38 H Radiography Diagnostic Testing: Clinical Impression(s) from Imaging Studies Brain CT 08/02/24 12:24 IMPRESSION: 1. Small vessel ischemic/degenerative changes. 2. Generalized brain atrophy. 3. No acute intracranial hemorrhage, midline shift or mass effect. If symptoms persist, further evaluation with MRI is recommended. Findings were discussed with Dr. Morgan by phone on 08/02/2024 at 1250 hours. Reading Location: [facility] Head/Neck CTA 08/02/24 12:24 IMPRESSION: RIGHT CAROTID: Mild degree of calcific plaque at the origin of the right internal carotid artery. LEFT CAROTID: Mild degree of calcific plaque at the origin of the left internal carotid artery. VERTEBRALS: Dominant left vertebral artery INTRACRANIAL: Unremarkable Other impression: No significant stenosis seen. Reading Location: [place] [address] Rhythm Strip Rhythm Strip: A-fib Rate: 90 Ectopy: None EKG Initial EKG: Attestation: I personally reviewed and interpreted this EKG as follows: Interpretation: No Acute Injury Pattern, Atrial Fibrillation and Non-Specific ST Changes Management Discussion w/another healthcare provider: Food Service Hotel Runner ([facility] stroke neurology) and Radiologist Stroke Documentation Questions Stroke Team Activated: Yes (Prehospital) Reviewed Inclusion/Exclusion criteria: Yes Was Patient considered for Endovascular Intervention?: Yes-CTA +,PT transferred for further eval ofendovascular intervention IV Thrombolytic Administered: No (On Eliquis, possibly last took within the past6 hours) No contraindications from thrombolytic administration: No Critical Care Time Critical Care Time: Yes Critical care time (excluding procedures): 30-74 minutes (36 min), Including time spent:, Discussing w/Patient &/or Family/Signal Maintainer, Discussing w/Consultants, Arranging Admission or Transfer and Performing Direct Patient Care at Bedside Discharge Plan Triage Chief Complaint: Stroke Alert ED Provider: Pieter Morgan Dx/Rx/DC Orders Clinical Impression: Acute ischemic right MCA stroke, Anticoagulated, Acute on chronic renal insufficiency, URI (upper respiratory infection) Prescriptions: No Action doxycycline hyclate 100 mg capsule 100 mg PO BID glimepiride 2 mg tablet 2 mg PO QAM Rx Instructions: administer with breakfast levothyroxine 75 mcg tablet 75 mcg PO 6XW Eliquis 2.5 mg tablet 2.5 mg PO BID oxybutynin chloride 5 mg tablet extended release 24hr 5 mg PO QDAY atenolol 50 mg tablet 50 mg PO QDAY metformin 500 mg tablet extended release 24 hr 2,000 mg PO QDAY atorvastatin 80 mg tablet 80 mg PO QHS amoxicillin 500 mg capsule 500 mg PO Q8H Primary Care Provider: Kameron Caruso Referrals: Kameron Caruso MD [Primary Care Provider] - Print Language: Sammarinese Disposition Disposition: Acute Care Hospital Discharge Location: [facility] [place] What to do if you have Problems For any increased pain, shortness of breath, bleeding, nausea or vomiting, chestpain, or any unexpected problems, contact your Primary Care Provider. Call [facility] ([phone]) or report tothe closest Emergency Room. Call 911 if necessary. 08/02/24 1316 Cosigner Signature (if applicable): CC: Dr. Kameron Caruso MD ~ Signed [facility]03-21-2025 Radiology Diagnostic study note [facility] Imaging Services [address] [place] [address] STROKE CTA Head AND Neck W/Con MR#: [id number] Acct: [id number] Name: LINDSAY ACUNA Rep #: [id number] : 1945 F 78 From: Regulo Hargrove MD PCP: Dr. Kameron Caruso MD Status: RE G ER Study:STROKE CTA Head AND Neck W/Con Date of Exam: 08/02/24 Exam# [id number] Ordering Dr: Roby Morgan MD PROCEDURE: STROKE CTA HEAD AND NECK W/CON 08/02/2024 REASON FOR EXAM: NEURO DEFICIT, ACUTE, STROKE SUSPECTED TECHNIQUE: CTA imaging of the head and neck from the aortic arch to the skull vertex with intravenous contrast. 3D reconstructions. Coronal and Sagittal reconstruction series were provided. CONTRAST: Isovue 370 VOLUME: 100mL One or more dose reduction techniques were used (e.g., Automated exposure control, adjustment of the mA and/or kV according to patient size, use of iterative reconstruction technique). RADIATION DOSE SUMMARY: CTDlvol: 18.61 mGy DLP: 780.22 mGycm COMPARISON: Comparison is made with prior CT scan of the brain done earlier in the day. FINDINGS: Aortic Arch: Normal size and branching pattern. Mild atherosclerotic plaque. Brachiocephalic and Subclavians: Unremarkable RIGHT Carotid: Right CCA: Unremarkable. Right ICA: Mild calcified and soft plaque.. Less than 50% narrowing. Right ECA: Unremarkable. LEFT Carotid: Left CCA: Unremarkable. Left ICA: Mild calcified and soft plaque. Maximum stenosis (NASCET): <50 % Left ECA: Vertebrals: RIGHT Vertebral: Small right vertebral artery LEFT Vertebral: Dominant left vertebral artery Anatomy: Atherosclerotic calcification of the cavernous portions of the internalcarotid arteries bilaterally. Aneurysm or avm: No intracranial aneurysms or large vascular malformations are identified. Anterior cerebral arteries: Unremarkable: Middle cerebral arteries: Unremarkable. Basilar artery: Unremarkable. Posterior cerebral arteries: Unremarkable. Other major branches of the posterior circulation: Unremarkable. CT/STROKE CTA Head AND Neck W/Con IMPRESSION: RIGHT CAROTID: Mild degree of calcific plaque at the origin of the right internal carotid artery. LEFT CAROTID: Mild degree of calcific plaque at the origin of the left internal carotid artery. VERTEBRALS: Dominant left vertebral artery INTRACRANIAL: Unremarkable Other impression: No significant stenosis seen. Reading Location: [facility] CC: Dr. Pieter Morgan MD; Dr. Kameron Caruso MD ~ Adolescent Psychiatrist: Signed [facility]03-21-2025 Radiology Diagnostic study note [facility] Imaging Services [address] [place] [address] STROKE Brain/Head without Cont MR#: [id number] Acct: [id number] Name: LINDSAY ACUNA Rep #: [id number] : 1945 F 78 From: Shria Cardoso MD PCP: Dr. Kameron Caruso MD Status: RE G ER Study:STROKE Brain/Head without Cont Date of Exam: 08/02/24 Exam# [id number] Ordering Dr: Roby Morgan MD EXAM: CT Head Without Intravenous Contrast CLINICAL INDICATION: NEURO DEFICIT, ACUTE, STROKE SUSPECTED TECHNIQUE: Axial computed tomography images of the head/brain without intravenous contrast. This CTexam was performed using one or more of the following dose reduction techniques: automated exposure control, adjustment of the mA and/or kV according to patient size, and/or use of iterative reconstruction technique. COMPARISON: No relevant prior studies available. FINDINGS: BRAIN AND EXTRA-AXIAL SPACES: Areas of decreased attenuation in the deep cerebral white matter are consistent with small vessel ischemic/degenerative changes. The cerebral and cerebellar sulci are prominent consistent with brain atrophy. No acute intracranial hemorrhage, midline shift or mass effect. If symptoms persist, further evaluation withMRI is recommended. BONES/JOINTS: Unremarkable. No acute fracture. SOFT TISSUES: Unremarkable. SINUSES: Unremarkable as visualized. No acute sinusitis. MASTOID AIR CELLS: Unremarkable as visualized. No mastoid effusion. CT/STROKE Brain/Head without Cont IMPRESSION: 1. Small vessel ischemic/degenerative changes. 2. Generalized brain atrophy. 3. No acute intracranial hemorrhage, midline shift or mass effect. If symptoms persist, further evaluation with MRI is recommended. Findings were discussed with Dr. Morgan by phone on 08/02/2024 at 1250 hours. Reading Location: [facility] CC: Dr. Pieter Morgan MD; Dr. Kameron Caruso MD ~ Adolescent Psychiatrist: Signed [facility]02-19-2025 Telephone encounter Note* Telephone Encounter - Mj Glover APRN.CNP - 07/03/2024 12:28 PM EST The following approved medication requests have been transmitted electronically. Requested Prescriptions Signed Prescriptions Disp Refills doxycycline monohydrate (MONODOX) 100 mg capsule 56 capsule 0 Sig: Take 1 capsule by mouth two times a day for 28 days. Authorizing Provider: MJ GLOVER APRN.CNP [facility]02-19-2025 Miscellaneous Notes* Telephone Encounter - Mj Glover APRN.CNP - 07/03/2024 12:28 PM EST The following approved medication requests have been transmitted electronically. Requested Prescriptions Signed Prescriptions Disp Refills doxycycline monohydrate (MONODOX) 100 mg capsule 56 capsule 0 Sig: Take 1 capsule by mouth two times a day for 28 days. Authorizing Provider: MJ GLOVER APRN.CNP * Telephone Encounter - Katrina Coombs - 07/03/2024 11:24 AM EST Lindsay is calling Kameron Caruso MD today with concern regarding request for medication Patient is requesting a new prescription for doxycycline hyclate (VIBRAMYCIN) 100 mg capsule for 28days. Patient states she refused the initial 14 days prescription, so she needs a whole new prescription. Patient will be in [place] for 12 days and need to take medication 2 days prior before leaving. Patient has been identified by name and birthdate. Duration of symptoms: N/A Person calling: self Call patient at: on cell [phone] (home) [phone] (cell) Was an appointment scheduled: No Closing statement: Results or non-symptom based questions: Thank you for calling [facility], your call will be returned within the next business day. Katrina Coombs documented in this [facility]Mer[facility] Telephone encounter Note * Telephone Encounter - Katrina Coombs - 07/03/2024 11:24 AM EST Lindsay is calling Kameron Caruso MD today with concern regarding request for medication Patient is requesting a new prescription for doxycycline hyclate (VIBRAMYCIN) 100 mg capsule for 28days. Patient states she refused the initial 14 days prescription, so she needs a whole new prescription. Patient will be in [place] for 12 days and need to take medication 2 days prior before leaving. Patient has been identified by name and birthdate. Duration of symptoms: N/A Person calling: self Call patient at: on cell [phone] (home) [phone] (cell) Was an appointment scheduled: No Closing statement: Results or non-symptom based questions: Thank you for calling [facility], your call will be returned within the next business day. Katrinawest Coombs [facility]02-18-2025 Telephone encounter Note* Telephone Encounter - Katia Grullon RN - 07/02/2024 11:57 AM EST Patient calls and is requesting Cardiology referral to be faxed to [facility]. Faxed referral as requested. Katia Grullon RN [facility]02-18-2025 Miscellaneous Notes* Telephone Encounter - Katia Grullon RN - 07/02/2024 11:57 AM EST Patient calls and is requesting Cardiology referral to be faxed to [facility]. Faxed referral as requested. Katia Grullon RN documented [facility] Telephone encounter Note * Telephone Encounter - Bret Arambula LPN - 07/01/2024 12:39 PM EST Patient notified of Rx, verbalizes understanding of instructions. Bret Arambula LPN [facility]02-17-2025 Miscellaneous Notes* Telephone Encounter - Bret Arambula LPN - 07/01/2024 12:39 PM EST Patient notified of Rx, verbalizes understanding of instructions. Bret Arambula LPN * Telephone Encounter - Mj Glover APRN.CNP - 07/01/2024 11:23 AM EST Please let the patient know that I have sent The following approved medication requests have been transmitted electronically. Requested Prescriptions Signed Prescriptions Disp Refills doxycycline monohydrate (MONODOX) 100 mg capsule 14 capsule 0 Sig: Take 1 capsule by mouth two times a day for 7 days. Authorizing Provider: MJ GLOVER APRN.GARRETT * Telephone Encounter - Adenike Walton MA - 06/28/2024 3:08 PM EST Please review pt message and advise. Adenike Walton MA * Telephone Encounter - Goldie Sabillon - 06/28/2024 2:31 PM EST Lindsay is calling Kameron Caruso MD today [...] calling: self Call patient at: on cell [phone] (home) [phone] (cell) Was an appointment scheduled: No Goldie Swanson documented in this [facility]Mer[facility] Telephone encounter Note * Telephone Encounter - Mj Glover APRN.CNP - 07/01/2024 11:23 AM EST Please let the patient know that I have sent The following approved medication requests have been transmitted electronically. Requested Prescriptions Signed Prescriptions Disp Refills doxycycline monohydrate (MONODOX) 100 mg capsule 14 capsule 0 Sig: Take 1 capsule by mouth two times a day for 7 days. Authorizing Provider: MJ GLOVER APRN.CNP [facility]02-14-2025 Telephone encounter Note* Telephone Encounter - Adenike Walton MA - 06/28/2024 3:08 PM EST Please review pt message and advise. Adenike Walton MA [facility]02-14-2025 Telephone encounter Note* Telephone Encounter - Goldie Sabillon - 06/28/2024 2:31 PM EST Lindsay is calling Kameron Caruso MD today [...] calling: self Call patient at: on cell [phone] (home) [phone] (cell) Was an appointment scheduled: Leslie Swanson [facility]02-12-2025 Instructions* Patient Instructions* Emma Sotomayor APRN.CNP - 06/26/2024 10:00 AM EST Recommend consult with cardiology Continue to take all medication as prescribed Get repeat thyroid labs when you get back from vacation Contact the office with preferred malaria medication Follow up in 6 months. documented in [address] [facility]Mer[facility] History of Present illness Narrative* Emma Sotomayor APRN.CNP - 06/26/2024 9:40 AM EST This is a 78 year old female [...] EKG last month at in office visit withPCP. Taking Eliquis 2.5 mg 1 pill BID. Not following with Cardiology. Had echo completed, see below. Still taking atenolol 50 mg daily, Lipitor 80 mg daily. Ramipril 10 mg, 2 capsules daily. No chestpain. Will be traveling to [place], will need [...] Test Blood Sugar one times daily Dx: E11.29Insulin: No lancets (ONETOUCH DELICA PLUS LANCET) 30 gauge Test blood sugars 1 time daily. Dx: Type 2 DM Controlled E11.9. Insulin: no Chlorhexidine Gluconate (PERIDEX) 0.12 % solution Use 15 mL as instructed twice daily. Rinse aroundmouth for 30 seconds then expectorate blood sugar [...] kg (174 lb) SpO2 98% BMI 27.25 kg/m PHYSICAL EXAM: General Appearance: Well appearing, alert, [...] with daughter and contact the office with preferredprophylaxis. Discussed doxycycline or mefloquine. Follow-up in 6 months or sooner pending test results. Discussed treatment plan and patient voices understanding. Patient's questions answered appropriately. Medications and potential side effects were discussed and patient voices understanding. Emma Sotomayor APRN.CNP This note was partially generated using [employer] recognition system. Note was reviewed for accuracy. There may be minor misspellings or grammar miscues with [employer] voice recognition. documented in this encounterMer[facility]2025 NoteHNO ID: [id number] Author: EMMA SOTOMAYOR APRN.CNP Service: ? Author Type: Nurse Practitioner Type: [...] times daily Dx: E11.29 Insulin: No lancets (Pulpo MediaTOUCH DELICA PLUS LANCET) 30 gauge Test blood [...] vomiting, or diarrhea/constipation. No hematochezia/melena. No heartburn o (more content not included)...[facility]02-10-2025 Telephone encounter Note* Telephone Encounter - Kameron Caruso MD - 06/24/2024 7:26 PM EST Noted Kameron Caruso MD [facility]02-10-2025 Miscellaneous Notes* Telephone Encounter - Kameron Caruso MD - 06/24/2024 7:26 PM EST Noted Kameron Caruso MD * Telephone Encounter - Katia Grullon RN - 06/24/2024 1:20 PM EST Patient calls and states that she is going to be going to [facility] and will need medications for Malaria Patient does have appointment with provider tomorrow, but wanted to give provider heads up that she will be needing this. Katia Grullon RN documented [facility] Telephone encounter Note * Telephone Encounter - Katia Grullon RN - 06/24/2024 1:20 PM EST Patient calls and states that she is going to be going to [facility] and will need medications for Malaria Patient does have appointment with provider tomorrow, but wanted to give provider heads up that she will be needing this. Katia Grullon RN [facility]01-28-2025 Telephone encounter Note* Telephone Encounter - Naima Marshall RN - 06/11/2024 4:17 PM EST Pt called and is notified of providers results and instructions. Pt voices understanding. Naima Marshall RN [facility]01-28-[facility]25 Miscellaneous Notes* Telephone Encounter - Naima Marshall RN - 06/11/2024 4:17 PM EST Pt called and is notified of providers results and instructions. Pt voices understanding. Naima Marshall RN * Telephone Encounter - Kamreon Caruso MD - 06/11/2024 2:42 PM EST Please notify patient that her echocardiogram looks OK; continue with the meds as prescribed. Kameron Caruso MD documented in this encounterMer[facility] Telephone encounter Note * Telephone Encounter - Naima Marshall RN - 06/11/2024 3:21 PM EST Pt called and is notified of providers [...] now on, I told Pt was calling [facility] and getting them to refill the rest of the 60 tablets and she needs to go in and pick them up. I called [facility] and they are going to fill the rest of the 60 tablets and touch base with the Pt to come in and pick them up. Naima Marshall RN [facility]01-28-2025 Miscellaneous Notes* Telephone Encounter - Naima Marshall RN - 06/11/2024 3:21 PM EST Pt called and is notified of providers [...] to come in and pick them up. Naima Marshall RN * Telephone Encounter - Adenike Walton MA - 06/10/2024 2:12 PM EST Update pt on PCP's message below. Also FYI. FYI - Also to note, this was written in instructions on pt's AVS that was given to her. This information was highlighted on AVS given to her after her appt to start Eliquis 5 mg twice daily. Adenike Walton MA * Telephone Encounter - Naima Marshall RN - 06/10/2024 2:05 PM EST Called and left a message with her to have the Pt call back for providers message. Naima Marshall RN * Telephone Encounter - Kameron Caruso MD - 06/10/2024 1:45 PM EST I would recommend she start on the Eliquis now Kameron Caruso MD * Telephone Encounter - Naima Marshall RN - 06/10/2024 8:23 AM EST Pt called in and was asking if she needed to get the new medication she was ordered, which was Eliquis before her Echo. She states Dr Caruso told her she may not need stay on it after she had theprocedure. Pt has Echo on 06/11/24. I asked if she had been diagnosed with Afib, and the Pt said yes. I told her if she has Afib she will need to go on the Eliquis, because she could throw a blood clot and this medication helps to break those up. Pt states she doesn't have the medication yet and shehas an appointment on 06/25/24 with provider. I told her I would sent provider a message, but she should get the medication and start taking it. Please call and advise Pt. documented in this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 Negative for chest pain. Gastrointestinal: Negative for abdominal pain, diarrhea, nausea and vomiting. Musculoskeletal: Negative for myalgias. Skin: Positive for itching and rash. Neurological: Negative for dizziness and headaches. Objective Physical Exam Constitutional: General: She is not in acute distress. Appearance: She is not toxic-appearing. HENT: Head: Normocephalic. Nose: Nose normal. Eyes: Pupils: Pupils are equal, round, and reactive to light. Cardiovascular: Rate and Rhythm: Normal rate. Pulmonary: Effort: Pulmonary effort is normal. No respiratory distress. Musculoskeletal: Cervical back: Normal range of motion. Skin: General: Skin is warm and dry. Comments: Erythematous base rash with fluid-filled vesicles linear pattern noted highlighted area. Different stages of rash and healing process noted. No desquamation of skin or mucosal membrane involvement. Neurological: General: No focal deficit present. Mental Status: She is alert. ASSESSMENT/PLAN: 1. Rash - ICD9: 782.1, ICD10: R21 Diagnosed with rash. Placed on prednisone taper. Will monitor blood glucose more closely. Patient states averaging 120s in the morning. Last A1c 7.8. Do not take with NSAIDs. Patient was educated on supportive therapies. Patient will follow up with primary care provider 2 to 3 days reevaluation. Patient was instructed to immediately proceed to emergency room for any new, worsening, or symptoms las ting longer than anticipated. The patient's clinical presentation is otherwise unremarkable at thistime. Based on exam and clinical finding, the patient is stable for discharge. Plan of care was discussed with patient. Patient verbalizes understanding and agrees to plan of care. This note was generated using [employer] software. It may contain errors in wording, punctuation, or spelling. David Dupree APRN.[employer] documented in this encounterMer[facility] NoteHNO ID: [id number] Author: RADHA LEVINE APRN.[employer] Service: ? Author Type: Nurse Practitioner Type: Progress Notes Filed: 09/29/2023 18:12 Note Text: This note was created using NoteWriter. Subjective Lindsay Acuna is a 77 year old female. 77 year old female with PMH HTN, hyperlipidemia, CKD, DM, thyroid presents for rash Acute onset of symptoms was 2 days [employer] +bilateral hands, forearms +nape of neck +face +itching +redness Denies pain. Denies fever or chills Denies malaise or fatigue Denies new lotions, soaps, or medicines States that she was working out in the garden the same day the rash erupted. The history is provided by the patient. No bias cutter helper was used. Rash This is a new problem. Episode onset: 2 days ago. The problem is unchanged. Location: hands/neck/face. The rash is characterized by redness and itchiness. She was exposed to nothing. Pertinent negatives include no anorexia, congestion, cough, diarrhea, eye pain, facial edema, fatigue, fever, joint pain, nail changes, rhinorrhea, shortness of breath, sore throat or vomiting. Past treatments include nothing. The treatment provided no relief. There is no history of allergies, asthma, eczema or varicella. PAST MEDICAL HISTORY Diagnosis Date Coronary artery [...] Cocaine, Perfumes, and Sulfa (Sulfonamide Antibiotics) MEDICATIONS glimepiride (AMARYL) 2 mg tablet Take 1 tablet by mouth daily with breakfast. levothyroxine (SYNTHROID) 75 mcg tablet Take 1 tablet by mouth daily before breakfast. blood sugar diagnostic (ONETOUCH ULTRA TEST) test strip Test Blood Sugar one times daily Dx: E11.29 Insulin: No metFORMIN ER (GLUCOPHAGE XR) 500 mg 24 hr tablet Take 4 tablets by mouth daily with breakfast. ramipril (ALTACE) 10 mg capsule Take 2 capsules by mouth once daily. atenolol (TENORMIN) 50 mg tablet Take 1 tablet by mouth once daily. atorvastatin (LIPITOR) 80 mg tablet Take 1 tablet by mouth once daily. lancets (Pulpo MediaTOUCH DELICA PLUS LANCET) 30 gauge Test blood [...] TOUCH GLUCOSE CONTROL SOLN use as directed. methylPREDNISolone (MEDROL, KIKE,) 4 mg Dose-Pack Follow dosing instructions, take with food. famotidine (PEPCID) 20 mg tablet Take 1 tablet by mouth two times a day. triamcinolone (KENALOG) 0.025 % ointment Apply to affected area three times a day. FAMILY HISTORY Problem Relation Age of Onset Diabetes Mother Hypertension Mother Psychiatry Mother Cancer Other grandmother Thyroid Sister Social History Tobacco Use Smoking status: Never Smokeless tobacco: Never Vaping Use Vaping Use: Never used Substance Use Topics Alcohol use: No Drug use: No Review of Systems Constitutional: Negative for activity change, appetite change, fatigue and fever. HENT: Negative for congestion, rhinorrhea and sore throat. Eyes: Negative for pain. Respiratory: Negative for apnea, cough, chest tightness and shortness of breath. Cardiovascular: Negative for chest pain, palpitations and leg swelling. Gastrointestinal: Negative for anorexia, diarrhea and vomiting. Musculoskeletal: Negative for arthralgias, back pain, gait problem and joint pain. Skin: Positive for rash. Negative for nail changes. Allergic/Immunologic: Negative for environmental allergies, food allergies and immunocompromised state. Hematological: Negative for adenopathy. Does not bruise/bleed easily. Psychiatric/Behavioral: Negative for agitation and behavioral problems. Objective BP 148/91 Pulse (!) 54 Temp 36.6 ?C (97.8 ?F) Resp 18 Wt 84 kg (185 lb 3 oz) SpO2 99% BMI 29.00 kg/m? Physical Exam Vitals (more content not included)...[facility]05-17-2024 History of Present illness Narrative* Radha Levine APRN.[employer] - 09/29/2023 2:32 PM EDT This note was created using Nexiriter. Subjective Lindsay Acuna is a 77 year old female. 77 year old female with PMH HTN, hyperlipidemia, CKD, DM, thyroid presents for rash Acute onset of symptoms was 2 days [employer] +bilateral hands, forearms +nape of neck +face +itching +redness Denies pain. Denies fever or chills Denies malaise or fatigue Denies new lotions, soaps, or medicines States that she was working out in the garden the same day the rash erupted. The history is provided by the patient. No bias cutter helper was used. Rash This is a new problem. Episode onset: 2 days ago. The problem is unchanged. Location: hands/neck/face. The rash is characterized by redness and itchiness. She was exposed to nothing. Pertinent negatives include no anorexia, congestion, cough, diarrhea, eye pain, facial edema, fatigue, fever, joint pain, nail changes, rhinorrhea, shortness of breath, sore throat or vomiting. Past treatments include nothing. The treatment provided no relief. There is no history of allergies, asthma, eczema or varicella. PAST MEDICAL HISTORY Diagnosis Date Coronary artery [...] Cocaine, Perfumes, and Sulfa (Sulfonamide Antibiotics) MEDICATIONS glimepiride (AMARYL) 2 mg tablet Take 1 tablet by mouth daily with breakfast. levothyroxine (SYNTHROID) 75 mcg tablet Take 1 tablet by mouth daily before breakfast. blood sugar diagnostic (ONETOUCH ULTRA TEST) test strip Test Blood Sugar one times daily Dx: E11.29Insulin: No metFORMIN ER (GLUCOPHAGE XR) 500 mg 24 hr tablet Take 4 tablets by mouth daily with breakfast. ramipril (ALTACE) 10 mg capsule Take 2 capsules by mouth once daily. atenolol (TENORMIN) 50 mg tablet Take 1 tablet by mouth once daily. atorvastatin (LIPITOR) 80 mg tablet Take 1 tablet by mouth once daily. lancets (ONETOUCH DELICA PLUS LANCET) 30 gauge Test blood sugars 1 time daily. Dx: Type 2 DM Controlled E11.9. Insulin: no Chlorhexidine Gluconate (PERIDEX) 0.12 % solution Use 15 mL as instructed twice daily. Rinse aroundmouth for 30 seconds then expectorate blood sugar diagnostic (ONETOUCH ULTRA TEST STRIP) test strip Use to test sugars 1 times per day. Dx: E11.29. Insulin: No Betamethasone Dipropionate 0.05 % lotion Apply 1 application to affected area twice daily. ONE TOUCH GLUCOSE CONTROL SOLN use as directed. methylPREDNISolone (MEDROL, KIKE,) 4 mg Dose-Pack Follow dosing instructions, take with food. famotidine (PEPCID) 20 mg tablet Take 1 tablet by mouth two times a day. triamcinolone (KENALOG) 0.025 % ointment Apply to affected area three times a day. FAMILY HISTORY Problem Relation Age of Onset Diabetes Mother Hypertension Mother Psychiatry Mother Cancer Other grandmother Thyroid Sister Social History Tobacco Use Smoking status: Never Smokeless tobacco: Never Vaping Use Vaping Use: Never used Substance Use Topics Alcohol use: No Drug use: No Review of Systems Constitutional: Negative for activity change, appetite change, fatigue and fever. HENT: Negative for congestion, rhinorrhea and sore throat. Eyes: Negative for pain. Respiratory: Negative for apnea, cough, chest tightness and shortness of breath. Cardiovascular: Negative for chest pain, palpitations and leg swelling. Gastrointestinal: Negative for anorexia, diarrhea and vomiting. Musculoskeletal: Negative for arthralgias, back pain, gait problem and joint pain. Skin: Positive for rash. Negative for nail changes. Allergic/Immunologic: Negative for environmental allergies, food allergies and immunocompromised state. Hematological: Negative for adenopathy. Does not bruise/bleed easily. Psychiatric/Behavioral: Negative for agitation and behavioral problems. Objective BP 148/91 Pulse (!) 54 Temp 36.6 C (97.8 F) Resp 18 Wt 84 kg (185 lb 3 oz) SpO2 99% BMI29.00 kg/m Physical Exam Vitals and nursing note reviewed. Constitutional: General: She is not in acute distress. Appearance: Normal appearance. She is normal weight. She is not ill-appearing, toxic-appearing or diaphoretic. HENT: Head: Normocephalic and atraumatic. Right Ear: Ear canal and external ear normal. Left Ear: Ear canal and external ear normal. Nose: Nose normal. No congestion or rhinorrhea. Mouth/Throat: Mouth: Mucous membranes are moist. Pharynx: No oropharyngeal exudate or posterior oropharyngeal erythema. Eyes: General: Right eye: No discharge. Left eye: No discharge. Extraocular Movements: Extraocular movements intact. Conjunctiva/sclera: Conjunctivae normal. Pupils: Pupils are equal, round, and reactive to light. Cardiovascular: Rate and Rhythm: Normal rate and regular rhythm. Pulses: Normal pulses. Heart sounds: Normal heart sounds. No murmur heard. No friction rub. Pulmonary: Effort: Pulmonary effort is normal. No respiratory distress. Breath sounds: Normal breath sounds. No stridor. No wheezing, rhonchi or rales. Chest: Chest wall: No tenderness. Abdominal: General: Abdomen is flat. There is no distension. Palpations: Abdomen is soft. There is no mass. Tenderness: There is no abdominal tenderness. There is no right CVA tenderness, left CVA tenderness, guarding or rebound. Hernia: No hernia is present. Musculoskeletal: General: No swelling, tenderness, deformity or signs of injury. Normal range of motion. Cervical back: Normal range of motion and neck supple. No rigidity. Right lower leg: No edema. Left lower leg: No edema. Lymphadenopathy: Cervical: No cervical adenopathy. Skin: General: Skin is warm and dry. Capillary Refill: Capillary refill takes less than 2 seconds. Coloration: Skin is not jaundiced or pale. Findings: Rash (Pruritic, erythematic streak like based rash noted to right hand, bilateral forearm, nape of neck, right cheek. No abscesses. No petechia. No streaking) present. No bruising, erythemaor lesion. Neurological: General: No focal deficit present. Mental Status: She is alert and oriented to person, place, and time. Cranial Nerves: No cranial nerve deficit. Sensory: No sensory deficit. Motor: No weakness. Coordination: Coordination normal. Gait: Gait normal. Psychiatric: Mood and Affect: Mood normal. Behavior: Behavior normal. Thought Content: Thought content normal. Judgment: Judgment normal. Assessment and Plan ASSESSMENT/PLAN: 1. Allergic contact dermatitis due to plant - ICD9: 692.6, ICD10: L23.7 - Oral Steriod tx -Prednisone taper RX kenalog cream - Anti itch therapy Calomine lotion recommended prn - discussed skin care of rash - follow up if symptoms persist or worsen. Radha Levine APRN.CNP documented in this encounterMer[facility] Telephone encounter Note * Telephone Encounter - Mj Glover APRN.CNP - 09/19/2023 9:46 AM EDT The following approved medication requests have been transmitted electronically. Requested Prescriptions Pending Prescriptions Disp Refills glimepiride (AMARYL) 2 mg tablet 90 tablet 3 Sig: Take 1 tablet by mouth daily with breakfast. Mj Glover APRN.CNP [facility]05-07-2024 Miscellaneous Notes* Telephone Encounter - Mj Glover APRN.CNP - 09/19/2023 9:46 AM EDT The following approved medication requests have been transmitted electronically. Requested Prescriptions Pending Prescriptions Disp Refills glimepiride (AMARYL) 2 mg tablet 90 tablet 3 Sig: Take 1 tablet by mouth daily with breakfast. Mj Glover APRN.GARRETT * Telephone Encounter - Brigitte Dorsey RN - 09/19/2023 8:49 AM EDT Patient has been identified by name and date of : Yes, Brigitte Dorsey RN Date 09/19/2023 Time 8:52 am Patient phones for refill(s): Requested Prescriptions Pending Prescriptions Disp Refills glimepiride (AMARYL) 2 mg tablet 90 tablet 3 Sig: Take 1 tablet by mouth daily with breakfast. Date of last office visit in primary care: 05/30/2023 Date of next office visit in primary care: 11/28/2023 Please advise. Thank you. Brigitte Dorsey RN. documented in this encounterMer[facility] Telephone encounter Note * Telephone Encounter - Brigitte Dorsey RN - 09/19/2023 8:49 AM EDT Patient has been identified by name and date of : Yes, Brigitte Dorsey RN Date 09/19/2023 Time 8:52 am Patient phones for refill(s): Requested Prescriptions Pending Prescriptions Disp Refills glimepiride (AMARYL) 2 mg tablet 90 tablet 3 Sig: Take 1 tablet by mouth daily with breakfast. Date of last office visit in primary care: 05/30/2023 Date of next office visit in primary care: 11/28/2023 Please advise. Thank you. Brigitte Dorsey RN. [facility]11-25-[facility] Miscellaneous Notes* Telephone Encounter - Kameron Caruso MD - 04/08/2023 11:04 AM EST OK to refill as ordered Kameron Caruso MD * Telephone Encounter - Carmencita Baker LPN - 04/08/2023 10:57 AM EST Pt calling for refills. Last seen pcp 11/25/22. Next appt with pcp 05/30/23. documented in this encounterMer[facility]07-14-2023 Miscellaneous Notes* Telephone Encounter - Kameron Caruso MD - 11/25/2022 11:58 AM EDT Done Kameron Caruso MD * Telephone Encounter - Jaiden Paulino RN - 11/25/2022 10:43 AM EDT Patient asking pcp if you can cancel the jardiance on her med list, because it shows up on her MyChart, and she does not take it. documented in this encounterMer[facility]01-13-2023 History of Present illness Narrative* Kameron Caruso MD - 05/27/2022 9:40 AM EST Chief Complaint Patient presents with: F/U 6 Month HPI Lindsay L Armand is a 76 year old female who presents here today for a follow up/Wellness. Pt here today for her routine follow up and lab review. Pt asking to do a Wellness to get $10 from her insurance. Was seen acutely by Emma Sotomayor CNP in February due to back pain. Uro - No current issues. Hx of kidney stones and UTI. DM - Checks sugars at home once daily. FBS average around 130's, this am was 185 but she forgot to take her pills yesterday. Denies any low blood sugars or neuropathy symptoms. On current regimen of Metformin 500 mg 4 tabs po daiy and Glucotrol 10 mg daily. Occasionally will forget to take medication, not often. CKD - Stable; monitoring through routine labs. GFR 42 on current labs. HTN - Denies checking her BP at home or home or having symptoms of chest pain, sob or dizziness. Doing well on her current regimen of Altace 10 mg 2 tabs po once daily Atenolol 50 mg daily. Lipids - Admits that her diet is bad and she does not exercise. On current regimen of Lipitor 80 mgonce daily. Pt feels she's lost weight. Thyroid - Currently on no medication, has been stable. Monitoring through labs. Memory - Has reported issues with memory in the past. Patient and family report forgetfulness. Use Peridex solution for peridontal disease. Swelling of left leg and foot. Happened with her travels last year, improved, but has now returned.No pain. Does not go down at night. HM - Declines flu shot. Declines Covid vaccine, received 2 Covid shots. Declines Hep C or depression symptoms. Past medical history, appointments, medications, allergies reviewed. [...] on File Prior to Visit Medication Sig blood sugar diagnostic (ONETOUCH ULTRA TEST) test strip Test Blood Sugar one times daily Dx: E11.29Insulin: No atorvastatin (LIPITOR) 80 mg tablet Take 1 tablet by mouth once daily atenolol (TENORMIN) 50 mg tablet Take 1 tablet by mouth once daily glipiZIDE (GLUCOTROL XL) 10mg 24 hr tablet Take 1 tablet by mouth once daily ramipril (ALTACE) 10 mg capsule Take 2 capsules by mouth once daily metFORMIN ER (GLUCOPHAGE XR) 500 mg 24 hr tablet TAKE 4 TABLETS BY MOUTH ONCE DAILY WITH BREAKFAST lancets (Pulpo MediaTOUCH DELICA PLUS LANCET) 30 gauge Test blood sugars 1 time daily. Dx: Type 2 DM Controlled E11.9. Insulin: no Chlorhexidine Gluconate (PERIDEX) 0.12 % solution Use 15 mL as instructed twice daily. Rinse aroundmouth for 30 seconds then expectorate blood sugar diagnostic (Pulpo MediaTOUCH ULTRA TEST STRIP) test strip Use to test sugars 1 times per day. Dx: E11.29. Insulin: No Betamethasone Dipropionate 0.05 % lotion Apply 1 application to affected area twice daily. ONE TOUCH GLUCOSE CONTROL SOLN use as directed. No current facility-administered medications on file prior to visit. Social History Social History Tobacco Use Smoking status: Never Smokeless tobacco: Never Vaping Use Vaping Use: Never used Substance Use Topics Alcohol use: No Drug use: No EXAM: BP 136/84 (BP Site: Left Arm, BP Position: Sitting, BP Cuff Size: Regular Adult) Pulse 68 Resp 16 Wt 83.8 kg (184 lb 12.8 oz) BMI 28.94 kg/m General Appearance: Well appearing, alert, in no acute distress, well-hydrated, well nourished.. Lungs: Lungs clear to auscultation. No wheezing, rhonchi, rales.. Heart: RRR without murmur, gallop, or rubs. No ectopy. Ext: mild swelling of left lower leg and foot. Health Maintenance List HEPATITIS C SCREENING Never done BP CONTROLLED (<130/80) Never done DTAP,TDAP,TD(1 - Tdap) Never done COVID-19 VACCINE(2 - Booster for Alyssa series) due on 09/17/2020 PNEUMOCOCCAL: 65+(2 - PPSV23 if available, else PCV20) due on 10/23/2020 INFLUENZA(1) due on 01/13/2022 ADVANCE DIRECTIVE DISCUSSION Never done DEPRESSION ASSESSMENT Never done HBA1C due on 11/16/2022 URINE ALBUMIN:CREATININE RATIO due on 11/20/2022 DIABETIC FOOT EXAM due on 11/23/2022 DILATED RETINAL EXAM due on 12/27/2022 ANNUAL PCP TEAM CHRONIC DISEASE VISIT due on 03/02/2023 LDL CHOLESTEROL due on 05/19/2023 SERUM CREATININE due on 05/19/2023 HEMOGLOBIN/HEMATOCRIT due on 05/19/2023 SHINGRIX VACCINE Completed BONE DENSITY Addressed Data reviewed Appointment on 05/19/2022 Component Date Value Protein, Total 05/19/2022 6.6 Albumin 05/19/2022 4.1 Calcium, Total 05/19/2022 9.2 Bilirubin, Total 05/19/2022 0.3 Alkaline Phosphatase 05/19/2022 110 AST 05/19/2022 17 ALT 05/19/2022 15 Glucose 05/19/2022 97 BUN 05/19/2022 15 Creatinine 05/19/2022 1.31 (A) Sodium 05/19/2022 141 Potassium 05/19/2022 3.9 Chloride 05/19/2022 105 CO2 05/19/2022 25 Anion Gap 05/19/2022 11 Estimated Glomerular Vincent* 05/19/2022 42 (A) Cholesterol, Total 05/19/2022 185 Triglyceride 05/19/2022 123 HDL Cholesterol 05/19/2022 47 Non HDL Cholesterol 05/19/2022 138 (A) Fasting Time 05/19/2022 12 VLDL Cholesterol 05/19/2022 25 TC:HDL Ratio 05/19/2022 3.94 LDL Cholesterol 05/19/2022 113 (A) LDL:HDL Ratio 05/19/2022 2.40 Hemoglobin A1C 05/19/2022 7.6 (A) Estimated Average Glucose 05/19/2022 171 TSH 05/19/2022 7.220 (A) WBC 05/19/2022 6.74 RBC 05/19/2022 3.88 (A) Hemoglobin 05/19/2022 11.8 Hematocrit 05/19/2022 37.9 MCV 05/19/2022 97.7 MCH 05/19/2022 30.4 MCHC 05/19/2022 31.1 RDW-CV 05/19/2022 13.2 Platelet Count 05/19/2022 206 MPV 05/19/2022 11.7 Absolute nRBC 05/19/2022 <0.01 ASSESSMENT/PLAN: 1. Essential hypertension, benign - ICD9: 401.1, ICD10: I10 (primary diagnosis) - good control - Continue current medication(s) - Recommended regular aerobic exercise. - Recommend home blood pressure monitoring, to bring results in on next visit - Goal of BP <140/90 - COMP METABOLIC PANEL - LIPID PANEL BASIC - CBC 2. Hypothyroidism, unspecified type - ICD9: 244.9, ICD10: E03.9 On no meds; continue to monitor - CBC - TSH BLD 3. Type 2 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, without long- term current use of insulin (HCC) - ICD9: 250.40, 585.3, ICD10: E11.22, N18.32 Controlled. Will stop glipizide and add Jardiance, due to CKD - COMP METABOLIC PANEL - LIPID PANEL BASIC - HGB A1C 4. Hyperlipidemia, unspecified hyperlipidemia type - ICD9: 272.4, ICD10: E78.5 - good control - Continue current medication. - COMP METABOLIC PANEL - LIPID PANEL BASIC 5. Chronic kidney disease, stage 3a (HCC) - ICD9: 585.3, ICD10: N18.31 - eGFR: Stable Add Jardiance 6. Edema of left lower leg - ICD9: 782.3, ICD10: R60.0 Monitor Compression stockings Follow up in 6 months with labs prior Medical Decision Making: Problems: Moderate: 2+ stable chronic illnesses and 1+ chronic illnesses with change Data: Unique test result(s) reviewed: 3+ Unique test(s) ordered: 3+ Risk: Moderate: Drug management Medical Decision Making Level: 4 - Moderate Kameron Caruso MD documented in this encounterMercy [facility]11-28-2022 Miscellaneous Notes* Telephone Encounter - Mj Glover APRN.CNP - 04/11/2022 9:19 AM EST The following approved medication requests have been transmitted electronically. Requested Prescriptions Pending Prescriptions Disp Refills blood sugar diagnostic (ONETOUCH ULTRA TEST) test strip 100 Strip 3 Sig: Test Blood Sugar one times daily Dx: E11.29 Insulin: No Mj Glover APRN.CNP * Telephone Encounter - Isaac Mendez LPN - 04/11/2022 9:00 AM EST Patient phones requesting refills as follows: Requested Prescriptions Pending Prescriptions Disp Refills blood sugar diagnostic (ONETOUCH ULTRA TEST) test strip 100 Strip 3 Sig: Test Blood Sugar one times daily Dx: E11.29 Insulin: No EMANUEL 03/02/22 NOV 05/27/22 Please review and advise. Isaac Mendez LPN * Telephone Encounter - [place] Gal[place] [facility] [place]11/[place]22 8:49 AM EST Patient has been identified by name and date of : Yes Requested Prescriptions No prescriptions requested or ordered in this encounter RX INSTRUCTIONS: Patient aware RX will be sent to pharmacy. No need to notify patient. [facility] documented in this encounterMercy [facility]10-19-2022 Instructions* Patient Instructions* Emma Sotomayor APRN.CNP - 03/02/2022 11:11 AM EDT Start prednisone taper, take with food. May use Tylenol while taking the steroid. May use flexeril 3 times daily as needed for muscle tension. May make you sleepy. You were given Toradol in the office. Apply heat to the area. Follow up if symptoms do not improve. documented in this encounterMercy Health St. [facility]10-19-2022 History of Present illness Narrative* Emma Sotomayor APRN.CNP - 03/02/2022 10:40 AM EDT This is a 76 year old female who presents today with: Patient presents with: Acute Visit: right side of lower back HISTORY OF PRESENT ILLNESS: Lindsay Acuna is a 76 year old female. Patient presents with: Acute Visit: right side of lower back Here in the office for back pain. Pain started last Monday, denies any injury to the area. No pain while sitting but worse with activity. Will get pain in the mid to low back. Pain is Sharp, rated8/10 that waxes and wanes Denies any loss of bowel or bladder/saddle anesthesia. No numbness/Tingling into the legs. Has has not tried any heiw-hig-zlthadq analgesia, refers that she does not like andrez ing medication.Needed wheelchair to get back to the office today. PAST MEDICAL HISTORY: PAST MEDICAL HISTORY Diagnosis [...] Antibiotics) MEDICATIONS Current Outpatient Medications Medication Sig atorvastatin (LIPITOR) 80 mg tablet Take 1 tablet by mouth once daily atenolol (TENORMIN) 50 mg tablet Take 1 tablet by mouth once daily glipiZIDE (GLUCOTROL XL) 10mg 24 hr tablet Take 1 tablet by mouth once daily ramipril (ALTACE) 10 mg capsule Take 2 capsules by mouth once daily metFORMIN ER (GLUCOPHAGE XR) 500 mg 24 hr tablet TAKE 4 TABLETS BY MOUTH ONCE DAILY WITH BREAKFAST lancets (Pulpo MediaTOUCH DELICA PLUS LANCET) 30 gauge Test blood sugars 1 time daily. Dx: Type 2 DM Controlled E11.9. Insulin: no Chlorhexidine Gluconate (PERIDEX) 0.12 % solution Use 15 mL as instructed twice daily. Rinse aroundmouth for 30 seconds then expectorate blood sugar diagnostic (Pulpo MediaTOUCH ULTRA TEST) test strip Test Blood Sugar one times daily Dx: E11.29Insulin: No blood sugar diagnostic (ONETOUCH ULTRA TEST STRIP) [...] Never Smokeless tobacco: Never Vaping Use Vaping Use: Never used Substance Use Topics Alcohol use: No Drug [...] history of dysuria, frequency or incontinence MUSCULOSKELETAL: + Back Pain SKIN: Negative for lesions, rash, and itching ENDOCRINE: Negative for cold or heat intolerance, polyuria, polydipsia and goiter NEURO: No history of headaches, syncope, paralysis, seizures or tremors MOOD: Negative for depression, anxiety, or suicidal ideation. EXAM: BP 140/76 Pulse 92 Resp 18 PHYSICAL EXAM: General Appearance: Well appearing, alert, in no acute distress, well-hydrated, well nourished. Skin: Skin color, texture, turgor normal, no suspicious rashes or lesions. Head: Normocephalic, no masses, lesions, tenderness or abnormalities. Eyes: Anicteric sclera. Extraocular movements are intact. Lungs: Lungs clear to auscultation. No wheezing, rhonchi, rales. Heart: RRR without murmur, gallop, or rubs. No ectopy. Extremities: No deformities, edema, skin discoloration, clubbing or cyanosis. Good capillary refill. Musculoskeletal: + low right sided back tenderness noted with palpation, spine non-tender. Very limited range of motion. Negative SLR. Peripheral Pulses: Normal, Capillary refill <2secs, strong peripheral pulses, Pulses palpable. Neurologic: Gait normal. Sensation grossly intact. ASSESSMENT/PLAN: 1. Acute midline low back pain without sciatica - ICD9: 724.2, ICD10: M54.50 - Toradol given in the office today. - Start prednisone taper, may use Flexeril as needed for muscle tension. - Medication education and instructions discussed - Continue supportive care at home, apply heat to the area. Gentle stretching when able to do so. - KETOROLAC 60 MG/2 ML INTRAMUSCULAR SOLUTION - PREDNISONE 10 MG TABLET - CYCLOBENZAPRINE 10 MG TABLET Follow-up as needed or sooner if symptoms do not improve. Discussed treatment plan and patient voices understanding. Patient's questions answered appropriately. Medications and potential side effects were discussed and patient voices understanding. Emma Sotomayor APRN.GARRETT This note was partially generated using [employer] voice recognition system. Note was reviewed for accuracy. There may be minor misspellings or grammar miscues with [employer] voice recognition. documented in this encounterMercy Health St. [facility]10-19-2022 Miscellaneous Notes* Telephone Encounter - Michelle Hu RN - 03/02/2022 10:00 AM EDT Triage Protocol Recommended: See provider within 4 hours for evaluation. Patient made appt with Emma Sotomayor for 10:40am today. Please call patient if provider has other advise. Thank you. Reason for Disposition [1] SEVERE back pain (e.g., excruciating, unable to do any normal activities) AND [2] not improved 2 hours after pain medicine Answer Assessment - Initial Assessment Questions Patient request OV today. States she has been experiencing back pain since Friday 02/23. Denies injury. No pain when sitting but when tries to move or walk she experiences low and mid back pain-moderate to severe. Sometimes pain moves into hip areas and right upper leg. Using cane to walk but doesn't usually use cane. Denies weakness or numbness in legs or arms. 1. ONSET: as above 2. LOCATION: as above 3. SEVERITY: sitting now and no pain but if moves =10 4. PATTERN: no 5. RADIATION: right upper leg when moves 6. CAUSE: Patient not sure 7. BACK OVERUSE: denies 8. MEDICATIONS: no has not taken any OTC-doesn't like to take medication 9. NEUROLOGIC SYMPTOMS: No leg weakness, no numbness, no loss of bladder or bowel function 10. OTHER SYMPTOMS: Denies fever, no abdominal pain, no burning with urination, no blood in urine 11. : no Protocols used: Back [id number] documented in this encounterMercy Health St. [facility]08-30-2022 Miscellaneous Notes* Telephone Encounter - Jumana Modi Ma - 01/11/2022 2:34 PM EDT No looks like it was handled earlier. Jumana Modi Ma * Telephone Encounter - Kameron Caruso MD - 01/11/2022 2:26 PM EDT I did all these earlier today; was there a problem with them? Kameron Caruso MD * Telephone Encounter - Aditi Bassett - 01/11/2022 1:43 PM EDT Patient has been identified by name and date of : Yes Requested Prescriptions Pending Prescriptions Disp Refills metFORMIN ER (GLUCOPHAGE XR) 500 mg 24 hr tablet 360 tablet 3 Sig: TAKE 4 TABLETS BY MOUTH ONCE DAILY WITH BREAKFAST glipiZIDE XL (GLUCOTROL XL) 10 mg 24 hr tablet 90 tablet 3 Sig: Take 1 tablet by mouth once daily. ramipril (ALTACE) 10 mg capsule 180 capsule 3 Sig: Take 2 capsules by mouth once daily. atorvastatin (LIPITOR) 80 mg tablet 90 tablet 3 Sig: Take 1 tablet by mouth once daily. atenolol (TENORMIN) 50 mg tablet 90 tablet 3 Sig: Take 1 tablet by mouth once daily. blood sugar diagnostic (ONETOUCH ULTRA TEST) test strip 100 Strip 3 Sig: Test Blood Sugar one times daily Dx: E11.29 Insulin: No RX INSTRUCTIONS: Patient aware RX will be sent to pharmacy. No need to notify patient. Aditi Conley Pss documented in this encounterMercy Health St. [facility]08-30-2022 Miscellaneous Notes* Telephone Encounter - Kameron Caruso MD - 01/11/2022 11:50 AM EDT OK to refill as ordered Kameron Caruso MD * Telephone Encounter - Tsering Smith LPN - 01/11/2022 11:13 AM EDT Last office visit: 11/23/21 Next appointment scheduled: 05/27/22 Last labs: 11/20/21 Looks like there is a current script of Metformin at the pharmacy already and will not need reneweduntil 05/2022. Pharmacy calls in requesting the following refill(s): Requested Prescriptions Pending Prescriptions Disp Refills atorvastatin (LIPITOR) 80 mg tablet [Pharmacy Med Name: Atorvastatin Calcium 80 MG Oral Tablet] 90 tablet 0 Sig: Take 1 tablet by mouth once daily atenolol (TENORMIN) 50 mg tablet [Pharmacy Med Name: Atenolol 50 MG Oral Tablet] 90 tablet 0 Sig: Take 1 tablet by mouth once daily glipiZIDE XL (GLUCOTROL XL) 10 mg 24 hr tablet [Pharmacy Med Name: glipiZIDE ER 10 MG Oral Tablet Extended Release 24 Hour] 90 tablet 0 Sig: Take 1 tablet by mouth once daily ramipril (ALTACE) 10 mg capsule [Pharmacy Med Name: Ramipril 10 MG Oral Capsule] 180 capsule 0 Sig: Take 2 capsules by mouth once daily metFORMIN ER (GLUCOPHAGE XR) 500 mg 24 hr tablet [Pharmacy Med Name: metFORMIN HCl ER 500 MG Oral Tablet Extended Release 24 Hour] 180 tablet 0 Sig: TAKE 4 TABLETS BY MOUTH ONCE DAILY WITH BREAKFAST documented in this encounterMercy Health St. [facility]08-04-2022 Miscellaneous Notes* Telephone Encounter - Mj Glover APRN.CNP - 12/16/2021 11:39 AM EDT Sent. The following approved medication requests have been transmitted electronically. Signed Prescriptions Disp Refills lancets (ONETOUCH DELICA PLUS LANCET) 30 gauge 100 Each 3 Sig: Test blood sugars 1 time daily. Dx: Type 2 DM Controlled E11.9. Insulin: no Authorizing Provider: MJ GLOVER APRN.CNP * Telephone Encounter - Brigitte Dorsey RN - 12/16/2021 11:14 AM EDT Patient calls to report that pharmacy dispensed a one touch ultra delica plus lancing device instead of the ultra soft that was prescribed. For future refills order for lancets needs to specify delica plus. Pended per patient request. Brigitte Dorsey RN documented in this encounterMercy Health St. [facility]07-12-2022 Miscellaneous Notes* Telephone Encounter - Mj Glover APRN.CNP - 11/23/2021 10:50 AM EDT The following approved medication requests have been transmitted electronically. Pending Prescriptions Disp Refills CHLORHEXIDINE GLUCONATE 0.12 % MOUTHWASH 473 mL 1 Sig: Use 15 mL as instructed twice daily. Rinse around mouth for 30 seconds then expectorate Mj Glover APRN.CNP * Telephone Encounter - Ginger Cool - 11/23/2021 10:28 AM EDT Lindsay Acuna is calling Kameron Caruso MD today Patient is requesting a new script for mouth rinse is sent to [facility] Chlorhexidene Gluconate 0.12% Patient was instructed to contact office after her appointment with name of medication. PCP agreed to fill Please advise documented in this encounterMercy Health St. [facility]07-12-2022 History of Present illness Narrative* Kameron Caruso MD - 11/23/2021 9:40 AM EDT Chief Complaint Patient presents with: F/U 6 Month HPI Lindsay L Armand is a 76 year old female who presents here today for a 6 month follow up. Pt here today for a 6 month follow up. Recently back from [facility]. Was told by Natives to not take medication for Malaria as they would rather have Malaria then take the medication. Had two daysof diarrhea. Reports some portions of her trip were beautiful. Had to travel 24 hours by plane to get to location. More then likely will not make any other travel plans. Wants PCP to prescribe mouth rinse that she gets from Dentist for peridontal prevention. She's heretoday and needs a refill, figured she would ask. Unsure of the name of the rinse, but will call andupdate the office. Uro - UTI that was treated since previous OV. Denies any other issues. No GI issues. DM - Checks sugars at home, but not in the past 3 weeks. Generally around 130. Denies any hypoglycemic episodes or neuropathy symptoms. Notes that she's had issues in the past with confusion on medication, with her missing some dosages. Taking now regularly. On current regimen of Metformin 500 mg 4tabs daily and Glucotrol 10 mg daily. CKD - Monitoring CKD, Stage III through routine labs. GFR 30-59. HTN - Denies checking her BP or having symptoms of chest pain, sob or dizziness. Feels she's doing well on her current regimen of Altace 10 mg 2 tabs po once daily and Atenolol 50 mg daily. Notes some foot swelling due to the prolonged sitting and walking a lot and having an artificial right knee. Lipids - Admits she could improve on her diet, but does try to watch it. Denies not doing much exercise. When she was in [facility] they had to go up 207 steps, so did quite a bit of walking. On current regimen Lipitor 80 mg daily. Thyroid - Stable without medication and routine monitoring through labs. Derm - Spot on her back that she would like to have looked at. Not able to reach it well, mid upperback. Memory - Has reported issues with memory and forgetfulness, by patient and her spouse. Family continues to tell her she is losing her memory. She reports disorganization on her part. Past medical history, appointments, medications, allergies reviewed. [...] on File Prior to Visit Medication Sig atovaquone-proguanil (MALARONE) 250-100 mg per tablet Take 1 tablet by mouth once daily. Start medication 2 days prior to travel and continue for 1 week after return metFORMIN ER (GLUCOPHAGE XR) 500 mg 24 hr tablet Take 4 tablets by mouth daily with breakfast. blood sugar diagnostic (ONETOUCH ULTRA TEST) test strip Test Blood Sugar one times daily Dx: E11.29Insulin: No atorvastatin (LIPITOR) 80 mg tablet Take 1 tablet by mouth once daily. atenolol (TENORMIN) 50 mg tablet Take 1 tablet by mouth once daily. ramipril (ALTACE) 10 mg capsule Take 2 capsules by mouth once daily. blood sugar diagnostic (ONETOUCH ULTRA TEST STRIP) test strip Use to test sugars 1 times per day. Dx: E11.29. Insulin: No glipiZIDE (GLUCOTROL XL) 10mg 24 hr tablet Take 1 tablet by mouth once daily. Betamethasone Dipropionate 0.05 % lotion Apply 1 application to affected area twice daily. ONE TOUCH GLUCOSE CONTROL SOLN use as directed. No current facility-administered medications on file prior to visit. Social History Social History Tobacco Use Smoking status: Never Smoker Smokeless tobacco: Never Used Vaping Use Vaping Use: Never used Substance Use Topics Alcohol use: No Drug use: No EXAM: BP 138/80 (BP Site: Left Arm, BP Position: Sitting, BP Cuff Size: Regular Adult) Pulse 84 Resp 16 Wt 83.1 kg (183 lb 3.2 oz) BMI 28.69 kg/m General Appearance: Well appearing, alert, in no acute distress, well-hydrated, well nourished. Derm: Seborrheic keratosis in mid upper back area. Normal on exam. Lungs: Lungs clear to auscultation. No wheezing, rhonchi, rales. Heart: RRR without murmur, gallop, or rubs. No ectopy. Extremities: Edema: Noted in L>R. Feet: Shoes and socks removed, No deformities, ulcers, calluses, normal distal pulses and sensitiveto 10 gm monofilament Health Maintenance List HEPATITIS C SCREENING Never done BP CONTROLLED (<130/80) Never done DTAP,TDAP,TD(1 - Tdap) Never done COVID-19 VACCINE(2 - Booster for Alyssa series) due on 09/17/2020 HEMOGLOBIN/HEMATOCRIT due on 10/16/2020 PNEUMOCOCCAL: 65+(2 - PPSV23 or PCV20) due on 10/23/2020 ADVANCE DIRECTIVE DISCUSSION Never done URINE ALBUMIN:CREATININE RATIO due on 11/04/2021 DIABETIC FOOT EXAM due on 11/05/2021 DEPRESSION SCREENING due on 11/05/2021 HBA1C due on 11/14/2021 DILATED RETINAL EXAM due on 01/11/2022 INFLUENZA(Season Ended) due on 01/13/2022 LDL CHOLESTEROL due on 05/17/2022 SERUM CREATININE due on 05/17/2022 ANNUAL PCP TEAM CHRONIC DISEASE VISIT due on 05/18/2022 SHINGRIX VACCINE Completed BONE DENSITY Addressed Data reviewed Appointment on 11/20/2021 Component Date Value Cholesterol, Total 11/20/2021 199 Triglyceride 11/20/2021 128 HDL Cholesterol 11/20/2021 46 Non HDL Cholesterol 11/20/2021 153 (A) Fasting Time 11/20/2021 12 VLDL Cholesterol 11/20/2021 26 TC:HDL Ratio 11/20/2021 4.33 LDL Cholesterol 11/20/2021 127 (A) LDL:HDL Ratio 11/20/2021 2.76 (A) Protein, Total 11/20/2021 7.2 Albumin 11/20/2021 4.3 Calcium, Total 11/20/2021 9.7 Bilirubin, Total 11/20/2021 0.5 Alkaline Phosphatase 11/20/2021 112 AST 11/20/2021 24 ALT 11/20/2021 26 Glucose 11/20/2021 129 (A) BUN 11/20/2021 19 Creatinine 11/20/2021 1.08 (A) Sodium 11/20/2021 141 Potassium 11/20/2021 4.6 Chloride 11/20/2021 105 CO2 11/20/2021 24 Anion Gap 11/20/2021 12 Estimated Glomerular Vincent* 11/20/2021 53 (A) TSH 11/20/2021 6.070 (A) Hemoglobin A1C 11/20/2021 7.6 (A) Estimated Average Glucose 11/20/2021 171 Creatinine, Ur Random (U* 11/20/2021 68.1 Albumin, Urine Random 11/20/2021 24.5 Albumin/Creat Ratio 11/20/2021 36 (A) ASSESSMENT/PLAN: 1. Type 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, unspecified CKD stage, unspecified whether group home insulin use (HCC) - ICD9: 250.40, 585.9, ICD10: E11.22 (primary diagnosis) Controlled. - Continue current medications - Encouraged regular aerobic exercise and weight loss - COMP METABOLIC PANEL - HGB A1C 2. Essential hypertension, benign - ICD9: 401.1, ICD10: I10 - good control - Continue current medication(s) - Recommended regular aerobic exercise. - Recommend home blood pressure monitoring, to bring results in on next visit - Goal of BP <130/80 - COMP METABOLIC PANEL - LIPID PANEL BASIC 3. Hyperlipidemia, unspecified hyperlipidemia type - ICD9: 272.4, ICD10: E78.5 - good control - Continue current medication. - COMP METABOLIC PANEL - LIPID PANEL BASIC 4. Stage 3b chronic kidney disease (HCC) - ICD9: 585.3, ICD10: N18.32 - Stable; slightly high, continue to monitor - COMP METABOLIC PANEL 5. Hypothyroidism, unspecified type - ICD9: 244.9, ICD10: E03.9 - Slightly high; continue to monitor without medication. - TSH BLD 6. Memory loss - ICD9: 780.93, ICD10: R41.3 - Continue to monitor 6 mo f/u with labs I agree with the Chief Complaint, ROS, and Past Histories independently gathered by the clinical marketing support specialist and the remaining scribed note accurately describes my personal service to the patient. Medical Decision Making: Problems: Moderate: 2+ stable chronic illnesses Data: Unique test result(s) reviewed: 3+ Unique test(s) ordered: 3+ Risk: Moderate: Drug management Medical Decision Making Level: 4 - Moderate Kameron Caruso MD The documentation for this note was completed by Adenike Walton Ma acting as scribe for Kameron Caruso MD. November 23, 2021 9:53 AM. Adenike Walton Ma documented in this encounterMercy Health St. [facility]06-02-2022 Miscellaneous Notes* Telephone Encounter - Kameron Caruso MD - 10/14/2021 9:34 AM EDT Order filed Kameron Caruso MD * Telephone Encounter - Adenike Walton Ma - 10/14/2021 9:20 AM EDT Pt stopped in the office and is requesting a new meter to be sent into [facility]. Pt uses One[employer] Meter. Adenike Walton Ma documented in this encounterMercy Health St. [facility]05-31-2022 Miscellaneous Notes* Telephone Encounter - Kameron Caruso MD - 10/12/2021 5:10 PM EDT Noted Kameron Caruso MD * Telephone Encounter - Naima Marshall RN - 10/12/2021 10:31 AM EDT Pt called and is notified of providers message and instructions. Pt voices understanding she reports that she recently got her tetanus and forgot about it. She states she is going to get her influenza and hates shots, so she is going to skip the Hep A. Naima Marshall RN * Telephone Encounter - Adenike Walton Ma - 10/12/2021 10:25 AM EDT Called and left message on patients voicemail to return call to the office and ask to speak with a triage nurse. Relay information below to pt. Adenike Walton Ma * Telephone Encounter - Kameron Caruso MD - 10/08/2021 6:09 PM EDT 1) Typhoid is only recommended if staying in small villages or rural areas, so she is probably OK to not get this 2) Tetanus ordered 3) I would recommend Hepatitis A vaccine - ordered 4) Rxs for Malarone (malaria prophylaxis) and Cipro (if needed for diarrhea) done Kameron Caruso MD * Telephone Encounter - Shreya Barrios LPN - 09/27/2021 11:36 AM EDT Pt calls and states where they were going to go to [facility] they have closed the border there and they are now going to [facility]. 1. Please advise if they have to get the Typhoid vaccine. She does not think they need to. 2. Will need tetanus, has not had in a long time. 3. Not sure on Hep A and B. She reports she has had Hep vaccines not sure. 4. Prescriptions for malaria pills and Cipro for 3 weeks. Pharmacy updated. 5. Since she has changed where they are going please advise if anything is different that they need. They are traveling starting approx 11-02-21. Please advise pt back. Shreya Barrios LPN documented in this encounterMercy Health St. [facility]05-09-2022 Miscellaneous Notes* Telephone Encounter - Jumana Modi Ma - 09/20/2021 11:26 AM EDT Letter mailed to pt home to contact office regarding her travel concerns below. * Telephone Encounter - Jumana Modi Ma - 09/16/2021 1:44 PM EDT Message left with pt , Ike. Asked that he have pt call office back. Jumana Modi Ma * Telephone Encounter - Jumana Modi Ma - 09/15/2021 2:22 PM EDT Attempted to reach pt again, line just rings several times then goes to busy sound. Jumana Modi Ma * Telephone Encounter - Jumana Modi Ma - 09/14/2021 1:21 PM EDT Tied to reach pt, line just rings several times then goes to a busy tone. Jumana Modi Ma * Telephone Encounter - Kameron Caruso MD - 09/14/2021 11:42 AM EDT According to the CDC travel site Typhoid vaccine is also recommended, has she had this previously? Also, is she up to date on tetanus? And has she had Hepatitis A and B vaccines? I can give her prescriptions for the malaria pills and for Cipro - how long she she going to be traveling? Kameron Caruso MD * Telephone Encounter - Naima Marshall RN - 09/13/2021 4:10 PM EDT Pt called in and reports she will be traveling to [place] on November 03, 2021, to [place], [place], and [place]. Pt wants to know what vaccines she would need to get prior to going there. She reports she already has had the yellow fever shot. Pt is also asking if the provider will prescribe the prescription for Malaria and Cipro just in case. Please call and advise. [facility] History of Past illness Narrative* Problem Noted Date Resolved Date Hypertensive kidney disease with stage 3 chronic kidney disease 11/03/2020 11/05/2020 Diabetes mellitus with renal complications 05/0111/03/2020 PURE HYPERCHOLESTEROLEM 11/27/19 14 DIABETES MELLITUS TYPE II-UNCOMPL 11/26/2013 documented as of this encounter (statuses as of 09/20/2021) [facility] History of Past illness Narrative* Problem Noted Date Resolved Date Hypertensive kidney disease with stage 3 chronic kidney disease 11/03/2020 11/05/2020 Diabetes mellitus with renal complications 05/0111/03/2020 PURE HYPERCHOLESTEROLEM 11/27/19 14 DIABETES MELLITUS TYPE II-UNCOMPL 11/26/2013 documented as of this encounter (statuses as of 10/12/2021) [facility] History of Past illness Narrative* Problem Noted Date Resolved Date Hypertensive kidney disease with stage 3 chronic kidney disease 11/03/2020 11/05/2020 Diabetes mellitus with renal complications 05/0111/03/2020 PURE HYPERCHOLESTEROLEM 11/27/19 14 DIABETES MELLITUS TYPE II-UNCOMPL 11/26/2013 documented as of this encounter (statuses as of 10/14/2021) [facility] History of Past illness Narrative* Problem Noted Date Resolved Date Hypertensive kidney disease with stage 3 chronic kidney disease 11/03/2020 11/05/2020 Diabetes mellitus with renal complications 05/0111/03/2020 PURE HYPERCHOLESTEROLEM 11/27/19 14 DIABETES MELLITUS TYPE II-UNCOMPL 11/26/2013 documented as of this encounter (statuses as of 11/23/2021) [facility] History of Past illness Narrative* Problem Noted Date Resolved Date Hypertensive kidney disease with stage 3 chronic kidney disease 11/03/2020 11/05/2020 Diabetes mellitus with renal complications 05/0111/03/2020 PURE HYPERCHOLESTEROLEM 11/27/19 14 DIABETES MELLITUS TYPE II-UNCOMPL 11/26/2013 documented as of this encounter (statuses as of 11/23/2021) [facility] History of Past illness Narrative* Problem Noted Date Resolved Date Hypertensive kidney disease with stage 3 chronic kidney disease 11/03/2020 11/05/2020 Diabetes mellitus with renal complications 05/0111/03/2020 PURE HYPERCHOLESTEROLEM 11/27/19 14 DIABETES MELLITUS TYPE II-UNCOMPL 11/26/2013 documented as of this encounter (statuses as of 12/16/2021) [facility] History of Past illness Narrative* Problem Noted Date Resolved Date Hypertensive kidney disease with stage 3 chronic kidney disease 11/03/2020 11/05/2020 Diabetes mellitus with renal complications 05/0111/03/2020 PURE HYPERCHOLESTEROLEM 11/27/19 14 DIABETES MELLITUS TYPE II-UNCOMPL 11/26/2013 documented as of this encounter (statuses as of 01/11/2022) [facility] of Past illness Narrative* Problem Noted Date Resolved Date Hypertensive kidney disease with stage 3 chronic kidney disease 11/03/2020 11/05/2020 Diabetes mellitus with renal complications 05/0111/03/2020 PURE HYPERCHOLESTEROLEM 11/27/19 14 DIABETES MELLITUS TYPE II-UNCOMPL 11/26/2013 documented as of this encounter (statuses as of 01/11/2022) [facility] History of Past illness Narrative* Problem Noted Date Resolved Date Hypertensive kidney disease with stage 3 chronic kidney disease 11/03/2020 11/05/2020 Diabetes mellitus with renal complications 05/0111/03/2020 PURE HYPERCHOLESTEROLEM 11/27/19 14 DIABETES MELLITUS TYPE II-UNCOMPL 11/26/2013 documented as of this encounter (statuses as of 03/02/2022) [facility] of Past illness Narrative* Problem Noted Date Resolved Date Hypertensive kidney disease with stage 3 chronic kidney disease 11/03/2020 11/05/2020 Diabetes mellitus with renal complications 05/0111/03/2020 PURE HYPERCHOLESTEROLEM 11/27/19 14 DIABETES MELLITUS TYPE II-UNCOMPL 11/26/2013 documented as of this encounter (statuses as of 03/02/2022) [facility] of Past illness Narrative* Problem Noted Date Resolved Date Hypertensive kidney disease with stage 3 chronic kidney disease 11/03/2020 11/05/2020 Diabetes mellitus with renal complications 05/0111/03/2020 PURE HYPERCHOLESTEROLEM 11/27/19 14 DIABETES MELLITUS TYPE II-UNCOMPL 11/26/2013 documented as of this encounter (statuses as of 04/11/2022) [facility] of Past illness Narrative* Problem Noted Date Resolved Date Hypertensive kidney disease with stage 3 chronic kidney disease 11/03/2020 11/05/2020 Diabetes mellitus with renal complications 05/0111/03/2020 PURE HYPERCHOLESTEROLEM 11/27/19 14 DIABETES MELLITUS TYPE II-UNCOMPL 11/26/2013 documented as of this encounter (statuses as of 05/27/2022) [facility] History of Past illness Narrative* Problem Noted Date Diagnosed Date Resolved Date Hypertensive kidney disease with stage 3 chronic kidney disease 11/03/2020 11/05/2020 Diabetes mellitus with renal complications 05/01/2014 11/03/2020 PURE HYPERCHOLESTEROLEM 07/1 09/2013 DIABETES MELLITUS TYPE II-UNCOMPL 11/26/2013 documented as of this encounter (statuses as of 11/25/2022) [facility] History of Past illness Narrative* Problem Noted Date Diagnosed Date Resolved Date Hypertensive kidney disease with stage 3 chronic kidney disease 11/03/2020 11/05/2020 Diabetes mellitus with renal complications 05/01/2014 11/03/2020 PURE HYPERCHOLESTEROLEM 07/1 09/2013 DIABETES MELLITUS TYPE II-UNCOMPL 11/26/2013 documented as of this encounter (statuses as of 04/08/2023) [facility] History of Past illness Narrative* Problem Noted Date Diagnosed Date Resolved Date Hypertensive kidney disease with stage 3 chronic kidney disease 11/03/2020 11/05/2020 Diabetes mellitus with renal complications 05/01/2014 11/03/2020 PURE HYPERCHOLESTEROLEM 11/12 DIABETES MELLITUS TYPE II-UNCOMPL 11/26/2013 documented as of this encounter (statuses as of 04/08/2023) [facility] Pieter Morgan [facility] Note Date/Time August 02, 2024 1:1 6pm [facility] Medical Records Department [address] [place] [address] Emergency Department Summary 08/02/24 MR#: [id number] Acct: [id number] Name: LINDSAY ACUNA Rep #:[id number] : [id number] 78 From: Pieter Morgan MD PCP: Dr. Kameron Caruso MD Status:RE G ER Location: ED HPI History of Present Illness Chief Complaint: Stroke Alert Informant: patient and EMS Narrative Narrative: Patient presenting from home by EMS as a prehospital stroke alert. Last seen normal 9:15 AM, arrives 12:20 PM approximately. found her lying on the floor about 10 or 20 minutes prior to noon when he came home from work. Patientamnestic about all events since he left for work, but states she thinks she remembers taking her medications this morning. EMS states left-sided weakness resulting in a fall and a minor injury to her left temporal area of her face. Unknown medications per EMS. Prehospital blood pressure and vital signs and BGTnoted. Patient confirms she takes Eliquis which is on her list in the EMR. states they returned home from [facility] about 1.5-2 weeks ago, and they both had colds. He is better, but she is "on round 2." [facility] Medical History Paroxysmal atrial fibrillation with RVR Coronary artery disease Essential hypertension Hyperlipidemia Kidney disease Type 2 diabetes mellitus without complication Goiter Diverticulosis Home Medications ?Medication ?Instructions ?Recorded ?Last Taken ?Type apixaban 2.5 mg tablet (Eliquis) 2.5 mg PO BID 5 Unknown History atenolol 50 mg tablet 50 mg PO QDAY 07/03/24 Unkno wn History atorvastatin 80 mg tablet 80 mg PO QHS 07/03/24 Unknow n History doxycycline hyclate 100 mg capsule 100 mg PO BID 07/03 Unknown History glimepiride 2 mg tablet 2 mg PO QAM 07/03/24 Unknown History levothyroxine 75 mcg tablet 75 mcg PO 6XW 07/03/24 Unk nown History metformin 500 mg tablet,extended 1,000 mg PO QDAY 06/15 02/06 Unknown History release 24 hr oxybutynin chloride 5 mg 5 mg PO QDAY 07/03/24 Unknow n History tablet,extended release 24 hr amoxicillin 500 mg capsule 500 mg PO Q8H 08/02/24 Unkn own History Allergy/AdvReac Type Severity Reaction Status Date / Time benzocaine Allergy Unknown Rash Verified 08/02/24 12:45 perfume Allergy Unknown Shortness Verified 08/02/24 12:45 of breath Sulfa (Sulfonamide Allergy Unknown Unknown Verified 08/02/24 12:45 Antibiotics) cocaine AdvReac Unknown Inverted T Verified 08/02/24 12:45 waves Family History (Updated 07/03/24 @ 10:19 by Bertha Turpin) Mother Diabetes Hypertension Psychiatric disorder Grandmother Cancer Sister Thyroid disorder Surgical History History of cyst of breast History of History of bilateral cataract extraction History of open reduction and internal fixation (ORIF) procedure History of colonoscopy (~2021) Social History Smoking Status: Never smoker alcohol intake: never substance use type: does not use ROS ROS ED Constitutional Constitutional ED: Denies chills or fever(s) Eyes Eyes: Denies change in vision or diplopia ENT ENT ED: Denies rhinorrhea or sore throat Cardiovascular Cardiovascular: Denies chest pain or palpitations Respiratory/Chest Respiratory/Chest: Denies cough or dyspnea Gastrointestinal Gastrointestinal: Denies abdominal pain, diarrhea, nausea or vomiting Genitourinary Genitourinary ED: Denies dysuria or hematuria Musculoskeletal Musculoskeletal: Denies back pain or neck pain Integumentary Denies abscess or rash Neurologic Neurologic: Reports weakness; Denies headache(s) EXAM Physical Exam Const Vital Signs: 08/02/24 12:37 08/02/24 12:41 08/02/24 12:46 Temperature 98 F Temperature Source Oral Pulse Rate 99 99 Respiratory Rate 17 16 Blood Pressure 172/99 H 157/86 H Blood Pressure Mean 123 109 Pulse Ox 98 96 Oxygen Delivery Method Room Air Room Air Room Air 08/02/24 12:54 Temperature Temperature Source Pulse Rate 98 Respiratory Rate 18 Blood Pressure 163/97 H Blood Pressure Mean 119 Pulse Ox 97 Oxygen Delivery Method Room Air Positive well nourished and well developed General Appearance ED: well developed and NAD HEENT Reports moist mucous membranes HEENT Narrative: Contusion/abrasion left temporal forehead, just left of the orbit. Zygomatic arch intact and nontender without crepitance or deformity. No hematoma. No other signs of HEENT trauma. normocephalic and trauma Eyes PERRL and EOMs intact bilaterally Neck full ROM and supple Resp normal respiratory effort and clear to auscultation bilaterally Cardio no murmurs Rhythm: abnormal rhythm irregularly irregular GI non-tender and non-distended Auscultation: normoactive bowel sounds Palpation: soft Back/Spine no CVA tenderness General Back: other FROM Extremity normal to inspection Extremity Narrative: Distal pulses intact x 4 General Extremety ED: Negative for edema, pulses abnormal or tenderness General Extremity: Negative for edema or pulses abnormal Neuro Neuro Narrative: Dense weakness left arm and leg and left lower face. Raises eyebrows normally. Has some hemineglect with regards to vision although she is able to overcome gazing left with reflexive movements, and visual richards appear to be intact, as well as hemineglect of the leg. Sensorium / Orientation: awake and alert Psych mental status grossly normal Skin no rashes or lesions noted and no wounds NIHSS NIHSS Initial: 1a Level of Consciousness: 1 1b LOC Questions (Score 2 if aphasic/stupor): 1 1c LOC Commands (Only score 1st attempt): 0 2 Best Gaze (If aphasic, use reflexive mvmts.): 1 3 Visual: 0 4 Facial Palsy: 2 5 Motor Arm Right (UN = amputation/fusion): 0 5 Motor Arm Left: 4 6 Motor Leg Right: 0 6 Motor Leg Left: 3 7 Limb ataxia (Only + if out of proportion): 0 8 Sensory (Aphasia/stupor=0 or 1, coma=2): 2 9 Best Language: 0 10 Dysarthria (mute, coma=2, intubated=UN): 1 11 Extinction and Inattention (only scored if +): 2 Total Score: 17 MDM MDM MDM Narrative Medical decision making narrative: Patient initially seen in the EMS bay, sent directly to CT and reevaluated more thoroughly once patient arrived to the room and the arrived to provide more history, see HPI. Patient think she last took her Eliquis this morning, the plain CT shows no hemorrhage. The states that she is inconsistent with taking her medications sometimes and so he did not know when she last took it. Given the history, the stroke neurologist and I both agree that it is too risky to give her TNK given that history. Spoke with Dr. Voss with stroke neurology at 1255, who was able to view the CTA imaging and confirms that there is a right MCA M1 LVO and recommends that wetransfer the patient there soon as possible. [facility] contacted for air transport. Discussed with and patient, they are comfortable with [facility] transfer. Lab Data Attestation: I reviewed the patient's lab results. Labs: Laboratory Results - last 24 hr 08/02/24 12:40 WBC 8.7 RBC 4.56 Hgb 13.8 Hct 42.0 MCV 92.1 MCH 30.3 MCHC 32.9 RDW Std Deviation 45.3 H RDW Coeff of Blake 13.3 Plt Count 214 MPV 10.7 Immature Gran % (Auto) 0.300 Neut % (Auto) 71.4 H Lymph % (Auto) 17.9 L [place] % (Auto) 8.9 Eos % (Auto) 1.0 Baso % (Auto) 0.5 Absolute Neuts (auto) 6.2 Absolute Lymphs (auto) 1.56 Nucleated RBC % 0 PT 14.1 INR 1.1 APTT 28.4 Sodium 132 L Potassium 4.2 Chloride 98 Carbon Dioxide 22.0 Anion Gap 12 BUN 20 H Creatinine 1.74 H Estim Creat Clear Calc 27.14 L Est GFR (MDRD) Non-Af 29 L BUN/Creatinine Ratio 11.6 Glucose 235 H Calcium 9.0 Troponin T High Sens 38 H Radiography Diagnostic Testing: Clinical Impression(s) from Imaging Studies Brain CT 08/02/24 12:24 IMPRESSION: 1. Small vessel ischemic/degenerative changes. 2. Generalized brain atrophy. 3. No acute intracranial hemorrhage, midline shift or mass effect. If symptoms persist, further evaluation with MRI is recommended. Findings were discussed with Dr. Morgan by phone on 08/02/2024 at 1250 hours. Reading Location: [facility] Head/Neck CTA 08/02/24 12:24 IMPRESSION: RIGHT CAROTID: Mild degree of calcific plaque at the origin of the right internal carotid artery. LEFT CAROTID: Mild degree of calcific plaque at the origin of the left internal carotid artery. VERTEBRALS: Dominant left vertebral artery INTRACRANIAL: Unremarkable Other impression: No significant stenosis seen. Reading Location: [place] [address] Rhythm Strip Rhythm Strip: A-fib Rate: 90 Ectopy: None EKG Initial EKG: Attestation: I personally reviewed and interpreted this EKG as follows: Interpretation: No Acute Injury Pattern, Atrial Fibrillation and Non-Specific ST Changes Management Discussion w/another healthcare provider: Food Service Hotel Runner ([facility] stroke neurology) and Radiologist Stroke Documentation Questions Stroke Team Activated: Yes (Prehospital) Reviewed Inclusion/Exclusion criteria: Yes Was Patient considered for Endovascular Intervention?: Yes-CTA +,PT transferred for further eval of endovascular intervention IV Thrombolytic Administered: No (On Eliquis, possibly last took within the past6 hours) No contraindications from thrombolytic administration: No Critical Care Time Critical Care Time: Yes Critical care time (excluding procedures): 30-74 minutes (36 min), Including time spent:, Discussing w/Patient &/or Family/Signal Maintainer, Discussing w/Consultants, Arranging Admission or Transfer and Performing Direct Patient Care at Bedside Discharge Plan Triage Chief Complaint: Stroke Alert ED Provider: Pieter Morgan Dx/Rx/DC Orders Clinical Impression: Acute ischemic right MCA stroke, Anticoagulated, Acute on chronic renal insufficiency, URI (upper respiratory infection) Prescriptions: No Action doxycycline hyclate 100 mg capsule 100 mg PO BID glimepiride 2 mg tablet 2 mg PO QAM Rx Instructions: administer with breakfast levothyroxine 75 mcg tablet 75 mcg PO 6XW Eliquis 2.5 mg tablet 2.5 mg PO BID oxybutynin chloride 5 mg tablet extended release 24hr 5 mg PO QDAY atenolol 50 mg tablet 50 mg PO QDAY metformin 500 mg tablet extended release 24 hr 2,000 mg PO QDAY atorvastatin 80 mg tablet 80 mg PO QHS amoxicillin 500 mg capsule 500 mg PO Q8H Primary Care Provider: Kameron Caruso Referrals: Kameron Caruso MD [Primary Care Provider] - Print Language: Sammarinese Disposition Disposition: Acute Care Hospital Discharge Location: [facility] [place] What to do if you have Problems For any increased pain, shortness of breath, bleeding, nausea or vomiting, chestpain, or any unexpected problems, contact your Primary Care Provider. Call [facility] ([phone]) or report to the closest Emergency Room. Call 911 if necessary. 08/02/24 1316 <Electronically signed by Pieter Morgan MD> Cosigner Signature (if applicable): CC: Dr. Kameron Caruso MD ~ Signed [facility] Work Phone: Evaluation note* Diagnosis Need for vaccination- Primary Need for prophylactic vaccination and inoculation against unspecified single disease [facility] Diagnosis Type 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, unspecified CKD stage, unspecified whether taker off braker machine insulin use (HCC)- Primary Essential hypertension, benign Hyperlipidemia, unspecified hyperlipidemia type Stage 3b chronic kidney disease (HCC) Hypothyroidism, unspecified type Memory loss [facility] Diagnosis Type 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, unspecified CKD stage, unspecified whether taker off braker machine insulin use (HCC)- Primary [facility]* Diagnosis Hyperlipidemia, unspecified hyperlipidemia type Essential hypertension, benign Type 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, unspecified CKD stage, unspecified whether taker off braker machine insulin use (HCC) [facility] Diagnosis Type 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, unspecified CKD stage, unspecified whether group home insulin use (HCC) Essential hypertension, benign Hyperlipidemia, unspecified hyperlipidemia type documented [facility]* Diagnosis Acute midline low back pain without sciatica- Primary documented [facility]* Diagnosis Type 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, unspecified CKD stage, unspecified whether group home insulin use (HCC)- Primary documented in this encounter [facility] note* Diagnosis Essential hypertension, benign- Primary Hypothyroidism, unspecified type Type 2 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, without long-term current use of insulin (HCC) Hyperlipidemia, unspecified hyperlipidemia type Chronic kidney disease, stage 3a (HCC) Edema of left lower leg Wellness examination documented in this encounter [facility] note* Diagnosis Type 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, unspecified CKD stage, unspecified whether group home insulin use (HCC) documented in this encounter [facility] note* Diagnosis Allergic contact dermatitis due to plant- Primary Contact dermatitis and other eczema due to plants (except food) documented in this encounter [facility] note* Diagnosis Rash- Primary Rash and other nonspecific skin eruption documented in this encounter [facility] note* Diagnosis Type 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, unspecified CKD stage, unspecified whether taker off braker machine insulin use (HCC)- Primary Essential hypertension, benign Chronic kidney disease, stage 3a (HCC) Hyperlipidemia, unspecified hyperlipidemia type Hypothyroidism, unspecified type Edema of left lower leg Memory loss documented in this encounter [facility] note* Diagnosis Essential hypertension, benign- Primary Type 2 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, without long-term current use of insulin (HCC) Chronic kidney disease, stage 3a (HCC) Hyperlipidemia, unspecified hyperlipidemia type Hypothyroidism, unspecified type Edema of left lower leg Memory loss Urinary incontinence, unspecified type Irregular heart beat Cardiac dysrhythmia, unspecified Atrial fibrillation, unspecified type (HCC) documented in this encounter [facility] note* Diagnosis Atrial fibrillation, unspecified type (HCC)- Primary Hypothyroidism, unspecified type Need for malaria prophylaxis documented in this encounter [facility] note* Diagnosis History of traveler's diarrhea- Primary Personal history of other diseases of digestive system documented in this encounter [facility] note* Diagnosis History of traveler's diarrhea Personal history of other diseases of digestive system documented in this encounter [facility] noteNo assessment information availableWWhite Hospital Work Phone: Evaluation note* Diagnosis Acute ischemic right MCA stroke- Primary Unspecified cerebral artery occlusion with cerebral infarction Cerebrovascular accident (CVA), unspecified mechanism Renal disease (High Serum Creatinine) Unspecified disorder of kidney and ureter Type 2 diabetes mellitus with hyperglycemia Type II or unspecified type diabetes mellitus without mention of complication, not stated as uncontrolled [facility] N[facility] No data available for this section [place] Reason for referral (narrative)* Outpatient Procedure (Routine) - Pending Review Specialty Diagnoses / Procedures Referred By Qiana almodovar Referred To Contact [facility] Diagnoses Atrial fibrillation, unspecified type (HCC) Procedures ECHO ECHO TTHRC R-T 2D W/WOM-MODE COMPL SPEC&COLR D Kameron Caruso MD [address] [place] [address] [facility] [id number] [place] [address] Referral ID Status Reason Start Date Expiration Date Visits Requested Visits Authorized [id number] Pending Review Auto-Generat ed Referral 05/31/2024 05/31/2025 1 1 * Outpatient Procedure (Routine) - New Request Specialty Diagnoses / Procedures Referred By Qiana almodovar Referred To Contact [facility] Diagnoses Irregular heart beat Procedures ECG COMPLETE ECG ROUTINE ECG W/LEAST 12 LDS W/I&R Kameron Caruso MD [address] [place] [address] [id number] [place] [address] Referral ID Status Reason Start Date Expiration Date Visits Requested Visits Authorized [id number] New Request Auto-Generat ed Referral 05/31/2024 05/31/2025 [address] [facility] (narrative)No reason for referral information availableWWhite Hospital Work Phone: Reason for visit Narrative* Auth/Cert Specialty Diagnoses / Procedures Referred By Qiana almodovar Referred To Contact Diagnoses Acute ischemic right MCA stroke Cerebrovascular Accident (Level A Ishemic Stroke) Prema Rodgers MD [address] [place] [id number] Phone: tel: fax: [facility] [address] [place] [address] Referral ID Status Reason Start Date Expiration Date Visits Re quested Visits Authorized [id number] 1 1 [facility] Summary Purpose Family History No Family History Records Found Relationship Condition Age at Onset Recorded Date/T monse mother Diabetes mellitus Unknown Hypertension Unknown Psychiatric disorder Unknown grandmother Malignant neoplasm Unknown sister Disorder of thyroid Unknown Advance Directives No Advanced Directives Records FoundDocuments on File Type Date Recorded Patient Table Operator 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 Advance Directives and Living Will Power of Fire Patrol Latest Code Status on File Code Status Date Activated Date Inactivated Comments Full Code 01/09/2019 10:16 AM Latest Code Status on File Code Status Date Activated Date Inactivated Comments Full Code 10/16/2019 9:16 AM Full Code 01/09/2019 10:16 AM 01/09/2019 2:23 PM Documents on File Type Date Recorded Patient Table Operator 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 Advance Directive(s) 11/07/2018 6:45 AM Advance Directive(s) 09/29/2015 10:09 PM Advance Directive Response Recorded Date/ Time Living Will No August 02, 2024 12:46pm Do you have a Healthcare Power of Fire Patrol? No August 02, 2024 12:46pm Date Activated Date Inactivated Comments 08/02/2024 5:50 PM Discharge Instructions * Instructions* Prema Arellano, RN - 01/09/2019 Colonoscopy: What to expect at home ACTIVITY: DO NOT DRIVE, OPERATE MACHINERY, OR DRINK ANY ALCOHOL TODAY. Avoid making critical decisions, signing legal documents, or performing any activity that requires alertness for the rest of the day. You may be bloated or have gas pains since air was introduced into the colon for the procedure. Youmay need to pass the gas throughout the day. You may experience a small amount of rectal bleeding; this can be normal after your colonoscopy. Notify your physician if the bleeding is enough to saturate your clothes. Rest the remainder of the day. You may resume normal activity tomorrow. You may return to work tomorrow. DIET: You may resume a normal diet unless notified or recommended by your physician. You may be eager to eat a large meal after fasting, but it is a good idea to start with light mealsand ease into solid foods the first day. (*) If your stomach is upset, try clear liquids and bland, low-fat foods like plain toast or rice. Drink plenty of fluids for the first 24 hours (unless your physician states otherwise). MEDICATION: Resume your normal home medications unless notified or recommended by your physician. If you take blood thinners (such as Coumadin, Eliquis, Plavix, Aspirin, etc.) or anti-inflammatory medications (Advil, Motrin, Aleve, etc.), ask your physician when you may resume these medications. FOLLOW-UP APPOINTMENT: Follow up with or call your physician as needed. When to call for help: Call your doctor IMMEDIATELY or seek medical care if you experience: ? Severe pain or vomiting ? A large amount (filling the toilet) of maroon, bloody stools or tar-like stools ? Your belly is swollen and firm with severe pain ? A fever greater than 101 degrees ? Redness or swelling of arm from the IV site for more than 48 hours ? Sudden onset of chest pain or shortness of breath ? If you become extremely dizzy or pass out (lose consciousness) IF YOU ARE UNABLE TO REACH YOUR PHYSICIAN GO TO NEAREST EMERGENCY DEPARTMENT Colon Polyp: Patient presents for evaluation of a colon polyp. The patient had a polyp identified by on {time:04352}. Biopsies {are/were w not:9034} taken. The patient's usual bowel pattern is {bowel pattern:54986}. Bowel movements {bowel changes:00069} . {abd pain:48346}. The patient has noted{bleeding with BM:83534}. The patient {does/do/not:57380} have a family history of colon polyps. The patient {does/do/not:32747} have a family history of colon cancer. documented in this encounter* Instructions* Nadja Mejía RN - 10/16/2019 .Colonoscopy: What to expect at home ACTIVITY: DO NOT DRIVE, OPERATE MACHINERY, OR DRINK ANY ALCOHOL TODAY. Avoid making critical decisions, signing legal documents, or performing any activity that requires alertness for the rest of the day. You may be bloated or have gas pains since air was introduced into the colon for the procedure. Youmay need to pass the gas throughout the day. You may experience a small amount of rectal bleeding; this can be normal after your colonoscopy. Notify your physician if the bleeding is enough to saturate your clothes. Rest the remainder of the day. You may resume normal activity tomorrow. You may return to work tomorrow. DIET: You may resume a normal diet unless notified or recommended by your physician. You may be eager to eat a large meal after fasting, but it is a good idea to start with light mealsand ease into solid foods the first day. (*) If your stomach is upset, try clear liquids and bland, low-fat foods like plain toast or rice. Drink plenty of fluids for the first 24 hours (unless your physician states otherwise). MEDICATION: Resume your normal home medications unless notified or recommended by your physician. If you take blood thinners (such as Coumadin, Eliquis, Plavix, Aspirin, etc.) or anti-inflammatory medications (Advil, Motrin, Aleve, etc.), ask your physician when you may resume these medications. FOLLOW-UP APPOINTMENT: Follow up with or call your physician as needed. When to call for help: Call your doctor IMMEDIATELY or seek medical care if you experience: ? Severe pain or vomiting ? A large amount (filling the toilet) of maroon, bloody stools or tar-like stools ? Your belly is swollen and firm with severe pain ? A fever greater than 101 degrees ? Redness or swelling of arm from the IV site for more than 48 hours ? Sudden onset of chest pain or shortness of breath ? If you become extremely dizzy or pass out (lose consciousness) IF YOU ARE UNABLE TO REACH YOUR PHYSICIAN GO TO NEAREST EMERGENCY DEPARTMENT documented in this encounter History of Present Illness * Santiago Jose MD - 10/16/2019 9:30 AM EDT No recurrence seen on flex sig. Rec 1 year follow up for surveillance. documented in this encounter Medications Administered Section Inactive Administered Medications - up to 3 most recent administrations Medication Order MAR Action Action Date Dose Rate Site keTORolac 60 mg injection (TORADOL) 60 mg, INTRAMUSCULAR, ONCE, 1 dose, On Mon03/02/22 at 1130, Ketorolac (Toradol) is indicated for the short-term (up to 5 days) management of moderately severe acute pain. Continuation of ketorolac (Toradol) beyond 5 days increases the risk of developing serious adverse events. Please verify the duration of therapy for ketorolac (Toradol)., If ordered PRN for pain, patient/guardian may elect to receive this medication for higher pain levels INSTEAD of the opioid, if preferred: Yes Given 03/02/2022 11:23 AM EDT 60 mg Buttocks, Right Chief Complaint and Reason for Visit Chief Complaint Admit Date stroke alert August 02, 2024 12: 23pm Chief Complaint Admit Date stroke alert August 02, 2024 12: 23pm LAB WORK September 10, 2024 5:0 0am AFIB ([place]) October 02, 2024 9:29a m Additional Source Comments INFORMATION SOURCE (unrecogn ized section and content) DATE CREATED AUTHOR 08/31/2018 [facility] ([place]) DATE CREATED AUTHOR AUTHOR'S ORGANIZ ATION 10/18/2019 [facility] DATE CREATED AUTHOR AUTHOR'S ORGANIZ ATION 08/04/2024 [facility] DATE CREATED AUTHOR AUTHOR'S ORGANIZ ATION 08/07/2024 [facility] DATE CREATED AUTHOR AUTHOR'S ORGANIZ ATION 08/24/2024 [facility] DATE CREATED AUTHOR AUTHOR'S ORGANIZ ATION 09/01/2024 [facility] DATE CREATED AUTHOR AUTHOR'S ORGANIZ ATION 10/13/2024 [facility] DATE CREATED AUTHOR AUTHOR'S ORGANIZ ATION 10/14/2024 [facility] Source Comments (unrecognize d section and content) In the event this informatio n is protected by the Federal Confidentiality of Alcohol and Drug Abuse Patient Records regulations: The Federal rules restrict any use of the information to criminally investigate or prosecute any alcohol or drug abuse patient.[facility] the event this information is protected by the Federal Confidentiality of Alcohol and Drug Abuse Patient Records regulations: The Federal rules restrict any use of the information to criminally investigate or prosecute any alcohol or drug abuse patient.[facility] HospitalIn the event this information is protected by the Federal Confidentiality of Alcohol and Drug Abuse Patient Records regulations: The Federal rules restrict any use of the information to criminally investigate or prosecute any alcohol or drug abuse patient.[facility] HospitalIn the event this information is protected by the Federal Confidentiality of Alcohol and Drug Abuse Patient Records regulations: The Federal rules restrict any use of the information to criminally investigate or prosecute any alcohol or drug abuse patient.[facility] HospitalIn the event this information is protected by the Federal Confidentiality of Alcohol and Drug Abuse Patient Records regulations: The Federal rules restrict any use of the information to criminally investigate or prosecute any alcohol or drug abuse patient.[facility] HospitalIn the event this information is protected by the Federal Confidentiality of Alcohol and Drug Abuse Patient Records regulations: The Federal rules restrict any use of the information to criminally investigate or prosecute any alcohol or drug abuse patient.[facility] HospitalIn the event this information is protected by the Federal Confidentiality of Alcohol and Drug Abuse Patient Records regulations: The Federal rules restrict any use of the information to criminally investigate or prosecute any alcohol or drug abuse patient.[facility] HospitalIn the event this information is protected by the Federal Confidentiality of Alcohol and Drug Abuse Patient Records regulations: The Federal rules restrict any use of the information to criminally investigate or prosecute any alcohol or drug abuse patient.[facility] HospitalIn the event this information is protected by the Federal Confidentiality of Alcohol and Drug Abuse Patient Records regulations: The Federal rules restrict any use of the information to criminally investigate or prosecute any alcohol or drug abuse patient.[facility] HospitalIn the event this information is protected by the Federal Confidentiality of Alcohol and Drug Abuse Patient Records regulations: The Federal rules restrict any use of the information to criminally investigate or prosecute any alcohol or drug abuse patient.[facility] HospitalIn the event this information is protected by the Federal Confidentiality of Alcohol and Drug Abuse Patient Records regulations: The Federal rules restrict any use of the information to criminally investigate or prosecute any alcohol or drug abuse patient.[facility] HospitalIn the event this information is protected by the Federal Confidentiality of Alcohol and Drug Abuse Patient Records regulations: The Federal rules restrict any use of the information to criminally investigate or prosecute any alcohol or drug abuse patient.[facility] HospitalIn the event this information is protected by the Federal Confidentiality of Alcohol and Drug Abuse Patient Records regulations: The Federal rules restrict any use of the information to criminally investigate or prosecute any alcohol or drug abuse patient.[facility] HospitalIn the event this information is protected by the Federal Confidentiality of Alcohol and Drug Abuse Patient Records regulations: The Federal rules restrict any use of the information to criminally investigate or prosecute any alcohol or drug abuse patient.[facility] HospitalIn the event this information is protected by the Federal Confidentiality of Alcohol and Drug Abuse Patient Records regulations: The Federal rules restrict any use of the information to criminally investigate or prosecute any alcohol or drug abuse patient.[facility] HospitalIn the event this information is protected by the Federal Confidentiality of Alcohol and Drug Abuse Patient Records regulations: The Federal rules restrict any use of the information to criminally investigate or prosecute any alcohol or drug abuse patient.[facility] HospitalIn the event this information is protected by the Federal Confidentiality of Alcohol and Drug Abuse Patient Records regulations: The Federal rules restrict any use of the information to criminally investigate or prosecute any alcohol or drug abuse patient.[facility] HospitalIn the event this information is protected by the Federal Confidentiality of Alcohol and Drug Abuse Patient Records regulations: The Federal rules restrict any use of the information to criminally investigate or prosecute any alcohol or drug abuse patient.[facility] HospitalIn the event this information is protected by the Federal Confidentiality of Alcohol and Drug Abuse Patient Records regulations: The Federal rules restrict any use of the information to criminally investigate or prosecute any alcohol or drug abuse patient.[facility] HospitalIn the event this information is protected by the Federal Confidentiality of Alcohol and Drug Abuse Patient Records regulations: The Federal rules restrict any use of the information to criminally investigate or prosecute any alcohol or drug abuse patient.[facility] HospitalIn the event this information is protected by the Federal Confidentiality of Alcohol and Drug Abuse Patient Records regulations: The Federal rules restrict any use of the information to criminally investigate or prosecute any alcohol or drug abuse patient.[facility] HospitalIn the event this information is protected by the Federal Confidentiality of Alcohol and Drug Abuse Patient Records regulations: The Federal rules restrict any use of the information to criminally investigate or prosecute any alcohol or drug abuse patient.[facility] HospitalIn the event this information is protected by the Federal Confidentiality of Alcohol and Drug Abuse Patient Records regulations: The Federal rules restrict any use of the information to criminally investigate or prosecute any alcohol or drug abuse patient.[facility] HospitalIn the event this information is protected by the Federal Confidentiality of Alcohol and Drug Abuse Patient Records regulations: The Federal rules restrict any use of the information to criminally investigate or prosecute any alcohol or drug abuse patient.[facility] HospitalIn the event this information is protected by the Federal Confidentiality of Alcohol and Drug Abuse Patient Records regulations: The Federal rules restrict any use of the information to criminally investigate or prosecute any alcohol or drug abuse patient.[facility] HospitalIn the event this information is protected by the Federal Confidentiality of Alcohol and Drug Abuse Patient Records regulations: The Federal rules restrict any use of the information to criminally investigate or prosecute any alcohol or drug abuse patient.[facility] HospitalIn the event this information is protected by the Federal Confidentiality of Alcohol and Drug Abuse Patient Records regulations: The Federal rules restrict any use of the information to criminally investigate or prosecute any alcohol or drug abuse patient.[facility] HospitalIn the event this information is protected by the Federal Confidentiality of Alcohol and Drug Abuse Patient Records regulations: The Federal rules restrict any use of the information to criminally investigate or prosecute any alcohol or drug abuse patient.[facility] Reason for Visit (unrecogniz ed section and content) Reason Comments Patient Question Medication Request Reason Comments information requested/rxs needed Reason Onset Date Comments Refill Request 10/14/2021 Reason Comments F/U 6 Month Reason Comments Diabetic Testing Supplies Reason Comments Refill Request Reason Onset Date Comments Refill Request 01/11/2022 Reason Comments Acute Visit right side of lower back Reason Comments Back Pain Reason Comments Patient Question Reason Onset Date Comments Refill Request 04/08/2023 Reason Onset Date Comments Refill Request 09/19/2023 Reason Comments Rash Hands, neck, stomach , face possible poison Keya x 2 days Reason Comments poison keya all over x several w eeks Reason Comments F/U 6 Month Reason Comments Medication Problem Reason Comments Results Reason Comments Patient Update Reason Comments Follow Up 1 month follow up fo r A-fib Reason Comments medication not on current med list Reason Comments Faxed Referral Reason Comments request for medication Reason Comments [facility] requesting verbal agree to f [facility] Care Teams (unrecognized sec tion and content) Aluminum Pourer Relationship Specialty Start Date End Date Kameron Caruso MD [address] [place] [address] PCP - General Family Practice 09/21/15 Aluminum Pourer Relationship Specialty Start Date End Date Kameron Caruso MD [address] [place] [address] PCP - General Family Practice 09/21/15 Aluminum Pourer Relationship Specialty Start Date End Date Kameron Caruso MD [address] [place] [address] PCP - General Family Practice 09/21/15 Aluminum Pourer Relationship Specialty Start Date End Date Kameron Caruso MD [address] [place] [address] PCP - General Family Practice 09/21/15 Aluminum Pourer Relationship Specialty Start Date End Date Kameron Caruso MD [address] [place] [address] PCP - General Family Practice 09/21/15 Aluminum Pourer Relationship Specialty Start Date End Date Kameron Caruso MD [address] [place] [address] PCP - General Family Practice 09/21/15 Aluminum Pourer Relationship Specialty Start Date End Date Kameron Caruso MD [address] [place] [address] PCP - General Family Medicine 09/21/15 Aluminum Pourer Relationship Specialty Start Date End Date Kameron Caruso MD [address] [place] [address] PCP - General Family Medicine 09/21/15 Aluminum Pourer Relationship Specialty Start Date End Date Kameron Caruso MD [address] [place] [address] PCP - General Family Medicine 09/21/15 Aluminum Pourer Relationship Specialty Start Date End Date Kameron Caruso MD [address] [place] [address] PCP - General Family Medicine 09/21/15 Aluminum Pourer Relationship Specialty Start Date End Date Kameron Caruso MD [address] [place] [address] PCP - General Family Medicine 09/21/15 Aluminum Pourer Relationship Specialty Start Date End Date Kameron Caruso MD [address] [place] [address] PCP - General Family Medicine 09/21/15 Aluminum Pourer Relationship Specialty Start Date End Date Kameron Caruso MD [address] [place] [address] PCP - General Family Medicine 09/21/15 Aluminum Pourer Relationship Specialty Start Date End Date Kameron Caruso MD [address] [place] [address] PCP - General Family Medicine 09/21/15 Aluminum Pourer Relationship Specialty Start Date End Date Kameron Caruso MD [address] [place] [address] PCP - General Family Medicine 09/21/15 Aluminum Pourer Relationship Specialty Start Date End Date Kameron Caruso MD [address] [place] [address] PCP - General Family Medicine 09/21/15 Emma Sotomayor APRN.[employer] MECH[employer]IC [address] [place] [address] Traffic Signal Repairer Family Medicine 04/21/24 Mj Glover, INFANT LEAD TEACHER.[employer]CH[employer]IC [address] [place] [address] Traffic Signal Repairer Family Medicine 04/30/24 Aluminum Pourer Relationship Specialty Start Date End Date Kameron Caruso MD [address] [place] [address] PCP - General Family Medicine 09/21/15 Emma Sotomayor INFANT LEAD TEACHER.[employer] MECHANIC [address] [place] [address] Traffic Signal Repairer Family Medicine 04/21/24 Mj Glover APRN.[employer]REL MECHANIC [address] [place] [address] Traffic Signal Repairer Family Medicine 04/30/24 Aluminum Pourer Relationship Specialty Start Date End Date Kameron Caruso MD [address] [place] [address] PCP - General Family Medicine 09/21/15 Emma Sotomayor APRN.[employer] MECHANIC [address] [place] [address] Traffic Signal Repairer Family Medicine 04/21/24 Mj Glover APRN.WO[employer]REL MECHANIC [address] [place] [address] Traffic Signal Repairer Family Medicine 04/30/24 Aluminum Pourer Relationship Specialty Start Date End Date Kameron Caruso MD [address] [place] [address] PCP - General Family Medicine 09/21/15 Emma Sotomayor APRN.[employer] MECHANIC [address] [place] [address] Traffic Signal Repairer Family Medicine 04/21/24 Mj Glover APRN.[employer]REL MECHANIC [address] [place] [address] Traffic Signal Repairer Family Medicine 04/30/24 Aluminum Pourer Relationship Specialty Start Date End Date Kameron Caruso MD [address] [place] [address] PCP - General Family Medicine 09/21/15 Emma Sotomayor APRN.[employer] MECHANIC [address] [place] [address] Traffic Signal Repairer Family Medicine 04/21/24 Mj Glover APRN.[employer]REL MECHANIC [address] [place] [address] Traffic Signal Repairer Family Medicine 04/30/24 Aluminum Pourer Relationship Specialty Start Date End Date Kameron Caruso MD [address] [place] [address] PCP - General Family Medicine 09/21/15 Emma Sotomayor APRN.[employer] MECHANIC [address] [place] [address] Traffic Signal Repairer Family Medicine 04/21/24 Mj Glover APRN.WO[employer] BARREL MECHANIC [address] [place] [address] [facility] 04/30/24 Aluminum Pourer Relationship Specialty Start Date End Date Kameron Caruso MD [address] [place] [address] PCP - General Family Medicine 09/21/15 Emma Sotomayor APRN.[employer]REL MECHANIC [address] [place] [address] Traffic Signal Repairer [facility] Medicine 04/21/24 Mj Glover APRN.WO[employer]REL MECHANIC [address] [place] [address] Traffic Signal Repairer [facility] 04/30/24 Team Status: Active Member Role Status Dates Dr. Kameron Caruso MD Primary Care Provider Active Team Status: Inactive Member Role Status Dates Dr. Kameron Caruso MD Primary Care Provider Active Start: August 02, 2024 End: August 02, 2024 Dr. Pieter Morgan MD Emergency Provider Active Start: August 02, 2024 End: August 02, 2024 Aluminum Pourer Relationship Specialty Start Date End Date Kameron Caruso MD [address] [place] [address] PCP - General Family Medicine 08/03/24 Aluminum Pourer Relationship Specialty Start Date End Date Kameron Caruso MD [address] [place] [address] PCP - General Family Medicine 09/21/15 Emma Sotomayor, INFANT LEAD TEACHER.[employer] MECHANIC [address] [place] [address] Traffic Signal Repairer Family Medicine 04/21/24 Mj Glover, INFANT LEAD TEACHER.[employer] MECHANIC [address] [place] [address] Traffic Signal Repairer Family Medicine 04/30/24 Team Status: Inactive Member Role Status Dates Dr. Kameron Caruso MD Primary Care Provider Active Start: August 02, 2024 End: August 02, 2024 Dr. Pieter Morgan MD Attending Provider Active Start: August 02, 2024 End: August 02, 2024 Dr. Pieter Morgan MD Emergency Provider Active Start: August 02, 2024 End: August 02, 2024 Team Status: Active Member Role Status Dates Dr. Kameron Caruso MD Primary Care Provider Active Start: September 10, 2024 Safia VARGAS MD Attending Provider Active Start: September 10, 2024 Team Status: Active Member Role Status Dates Dr. Kameron Caruso MD Primary Care Provider Active Start: September 17, 2024 Safia VARGAS MD Attending Provider Active Start: September 17, 2024 Team Status: Active Member Role Status Dates Dr. Kameron Caruso MD Primary Care Provider Active Start: September 24, 2024 Safia VARGAS MD Attending Provider Active Start: September 24, 2024 Team Status: Active Member Role Status Dates Dr. Kameron Caruso MD Primary Care Provider Active Start: September 29, 2024 Safia VARGAS MD Attending Provider Active Start: September 29, 2024 Team Status: Active Member Role Status Dates Dr. Kameron Caruso MD Primary Care Provider Active Start: October 01, 2024 Safia VARGAS MD Attending Provider Active Start: October 01, 2024 Team Status: Inactive Member Role Status Dates Dr. Kameron Caruso MD Primary Care Provider Active Start: October 02, 2024 End: October 02, 2024 Dr. Kameron Caruso MD Referring Provider Active Start: October 02, 2024 End: October 02, 2024 Dr. Mj Benavides MD Attending Provider Active S tart: October 02, 2024 End: October 02, 2024 (unrecognized sect ion and content) No Status Records Found Goals (unrecognized section and content) Goals may be documented in a n alternate section No data available for this sectionGoals may be documented in an alternate section Scheduled Active and Recently Administ ered Medications (unrecognized section and content) Medication Order 08/13/2024 08/14/2024 08/15/2024 apixaban (ELIQUIS) tablet 2.5 mg (CANCELED) 2.5 mg, PEG Tube, EVERY 12 HOURS, First dose (after last modification) on Mon08/11/24 at 2100, Until Discontinued, Due to the rapid onset of action of apixaban, no overlap is needed with other anticoagulants (e.g. enoxaparin, heparin)., Indications: Atrial Fibrillation 903 (Given - Provider: Shanna Palmer RN) apixaban (ELIQUIS) tablet 5 mg 5 mg, PEG Tube, EVERY 12 HOURS, First dose (after last modification) on Mon08/13/24 at 2100, Until Discontinued, Due to the rapid onset of action of apixaban, no overlap is needed with other anticoagulants (e.g. enoxaparin, heparin)., Indications: Atrial Fibrillation 1946 (Given - Provider: Shaila Eng RN) 848 (Given - Provider: Eneida Cespedes RN)2041 (Given - Provider: Shanna Catalan RN) 08 (Given - Provider: Robson Steel RN) Atorvastatin (LIPITOR) tablet 80 mg 80 mg, PEG Tube, DAILY AT BEDTIME, First dose (after last modification) on Mon08/13/24 at 2100, Until Discontinued 1946 (Given - Provider: Shaila Eng RN) 2040 (Given - Provider: Shanna Catalan RN) cefTRIAXone (ROCEPHIN) 1 g in dextrose 50ml premix IVPB (COMPLETED) 1 g, Intravenous, Administer over 30 Minutes, EVERY 24 HOURS, 7 doses, First dose on Mon08/09/24 at 1100, Last dose on Mon08/15/24 at 1100 1139 ($$New Bag$$ - Provider: Shanna Palmer RN)1204 (Stopped - Provider: Shaila Eng RN)1204 (Stopped - Provider: Shaila Eng RN) 1116 ($$New Bag$$ - Provider: Eneida Cespedes RN)1142 (Stopped - Provider: Eneida Cespedes RN) 1018 ($$New Bag$$ - Provider: Robson Steel RN) fluticasone (FLONASE) 50 MCG/ACT nasal spray 2 spray 2 spray, Nasal, 2 TIMES DAILY, First dose on Mon08/10/24 at 2200, Until Discontinued, Dose is for each nostril. 0905 (Given - Provider: Shanna Palmer RN)1755 (Given - Provider: Shanna Palmer RN) 0850 (Given - Provider: Eneida Cespedes RN)1652 (Given - Provider: Eneida Cespedes RN) 0806 (Given - Provider: Robson Steel RN) Insulin regular (HUMULIN R;NOVOLIN R) injection 9 Units 9 Units, Subcutaneous, EVERY 6 HOURS, First dose (after last modification) on Mon08/05/24 at 1200, Until Discontinued, HOLD IF: Tube feeds are not at goal or plan to be stopped for more than 3 hours in the next six hours or if serum glucose is less than 100 mg/dL. This insulin is for tube feed coverage only. An initial vial will be sent from the pharmacy without prompting. Replacement vials require a MAR request when needed. 0007 (Given - Provider: Katia Parekh, ZOE)0507 (Given - Provider: Katia Parekh RN)1139 (Given - Provider: Shanna Palmer RN)1753 (Given - Provider: Shanna Palmer RN) 0044 (Given - Provider: Shaila Eng RN)0625 (Given - Provider: Shaila Eng RN)1217 (Given - Provider: Eneida Cespedes RN)1757 (Given - Provider: Eneida Cespedes RN) 0018 (Given - Provider: Shanna Catalan RN)0606 (Given - Provider: Shanna Catalan RN)1200 (Canceled Entry - Provider: System Discharge - Comment: Automatically canceled at discontinue of medication order) Insulin regular (HUMULIN R;NOVOLIN R) injection(Linked Group 1) Subcutaneous, EVERY 6 HOURS, First dose (after last modification) on 08/03/24 at 1800, Until Discontinued, Correction factor parameters most appropriate for NPO or tube feeding patients: Blood glucose under 60 = call H.O.; 151 - 200 = 4 units; 201 - 250 = 6 units; 251 - 300 = 8 units; 301 - 350 = 10 units; 351 - 400 = 12 units; Over 400 = call H.O. An initial vial will be sent from the pharmacy without prompting. Replacement vials require a MAR request when needed. Call pharmacy to coordinate expedited delivery if an emergent dose is needed for hyperglycemia treatment. 0007 (Given - Provider: Katia Parekh RN)0507 (Given - Provider: Katia Parekh RN)1140 (Given - Provider: Shanna Palmer RN)1753 (Given - Provider: Shanna Palmer RN) 0044 (Given - Provider: Shaila Eng RN)0624 (Given - Provider: Shaila Eng RN)1218 (Given - Provider: Eneida Cespedes RN)1757 (Given - Provider: Eneida Cespedes RN) 0018 (Given - Provider: Shanna Catalan RN)0554 (Not Given - Provider: Shanna Catalan RN - Reason: Order Parameters not met)1200 (Canceled Entry - Provider: System Discharge - Comment: Automatically canceled at discontinue of medication order) Levothyroxine (SYNTHROID) tablet 75 mcg 75 mcg, PEG Tube, DAILY, First dose (after last modification) on 08/10/24 at 0900, Until Discontinued, Hold tube feedings for 1 hour before and 1 hour after medication administration. 0904 (Given - Provider: Shanna Palmer RN) 1001 (Given - Provider: Eneida Cespedes RN) 0901 (Given - Provider: Robson Steel RN) Lisinopril (PRINIVIL) tablet 10 mg 10 mg, PEG Tube, DAILY, First dose (after last modification) on 08/10/24 at 0900, Until Discontinued 0904 (Given - Provider: Shanna Palmer RN) 0849 (Given - Provider: Eneida Cespedes RN) 0807 (Given - Provider: Robson Steel RN) Melatonin tablet 3 mg 3 mg, PEG Tube, DAILY AT BEDTIME, First dose (after last modification) on Mon08/09/24 at 2100, Until Discontinued 1946 (Given - Provider: Shaila Eng RN) 2041 (Given - Provider: Shanna Catalan RN) Metoprolol (LOPRESSOR) tablet 50 mg 50 mg, PEG Tube, EVERY 12 HOURS, First dose (after last modification) on Mon08/09/24 at 2100, Until Discontinued 903 (Given - Provider: Shanna Palmer RN)1946 (Given - Provider: Shaila Eng RN) 08 (Given - Provider: Eneida Cespedes RN)2040 (Given - Provider: Shanna Catalan RN) 806 (Given - Provider: Robson Steel RN) Polyethylene glycol (MIRALAX) packet 17 g(Linked Group 2) 17 g, PEG Tube, EVERY 12 HOURS, First dose (after last modification) on Mon08/09/24 at 2100, Until Discontinued 904 (Not Given - Provider: Shanna Palmer RN - Reason: Patient with symptoms)1920 (Not Given - Provider: Shaila Eng RN - Reason: Contraindicated - Comment: Pt having frequent loose stools) 08 (Not Given - Provider: Eneida Cespedes RN - Reason: Patient with symptoms)2041 (Not Given - Provider: Shanna Catalan RN - Reason: Patient with symptoms) 08 (Not Given - Provider: Robson Steel RN - Reason: Patient/family refused) Senna (SENOKOT) tablet 17.2 mg(Linked Group 3) 17.2 mg, PEG Tube, EVERY 12 HOURS, First dose (after last modification) on Mon08/09/24 at 2100, Until Discontinued, Hold if BM in last 2 hours. 0905 (Not Given - Provider: Shanna Palmer RN - Reason: Patient with symptoms)1921 (Not Given - Provider: Shaila Eng RN - Reason: Contraindicated - Comment: pt having frequent loose stools) 0853 (Not Given - Provider: Eneida Cespedes RN - Reason: Patient with symptoms)2041 (Not Given - Provider: Shanna Catalan RN - Reason: Patient with symptoms) 08 (Not Given - Provider: Robson Steel RN - Reason: Patient/family refused) Sodium chloride 0.9% IV solution 1,000 mL (COMPLETED) 1,000 mL, Intravenous, ONCE, 1 dose, On Diane 08/15/24 at 0700, Fluid Bolus 0643 ($$New Bag$$ - Provider: Shanna Catalan RN)0721 (Rate/Dose Change - Provider: Shanna Catalan RN) Water liquid (free water) 150 mL (CANCELED) 150 mL, PEG Tube, EVERY 4 HOURS, First dose (after last modification) on Mon08/12/24 at 1800, Until Discontinued, For tube patency. 0200 (Given - Provider: Katia Parekh RN)0507 (Given - Provider: Katia Parekh RN)0906 (Given - Provider: Shanna Palmer RN)1351 (Given - Provider: Shanna Palmer RN)1758 (Given - Provider: Shanna Palmer RN)2129 (Given - Provider: Shaila Eng RN) 0113 (Given - Provider: Shaila Eng RN)0533 (Given - Provider: Shaila Eng RN) Water liquid (free water) 150 mL 150 mL, PEG Tube, EVERY 6 HOURS, First dose (after last modification) on Mon08/14/24 at 1200, Until Discontinued, For tube patency. 1222 (Given - Provider: Eneida Cespedes RN)1757 (Given - Provider: Eneida Cespedes RN) 0019 (Given - Provider: Shanna Catalan RN)0606 (Given - Provider: Shanna Catalna RN)1200 (Canceled Entry - Provider: System Discharge - Comment: Automatically canceled at discontinue of medication order) Continuous Medication Order 08/13/2024 08/14/2024 08/15/2024 Glucerna 1.5 Ruiz LIQD () PEG Tube, CONTINUOUS, Starting on Mon08/12/24 at 1300, Until Mon08/14/24 at 0559, Over 22 hours (holding for synthroid), Dosing: Continuous, Starting rate (mL/hr): 55, Advance by (mL/hr): 0, Goal rate (mL/hr): 55 0000 (Rate/Dose Verify - Provider: Katia Parekh RN)0400 (Rate/Dose Verify - Provider: Katia Parekh RN)0800 (Hold Feeding/Supplement - Provider: Shanna Spencer, RN - Reason: Hold Feed Temporarily (Medication Interaction) - Comment: holding for synthroid)1000 (Restarted - Provider: Shanna Palmer RN)1950 (Rate/Dose Verify - Provider: Shaila Eng RN)2113 (Rate/Dose Verify - Provider: Shaila Eng RN) 0358 (New Feeding/Supplement - Provider: Shaila Eng RN)0852 (Stopped - Provider: Eneida Cespedes RN) Glucerna 1.5 Ruiz LIQD PEG Tube, CONTINUOUS, Starting on Mon08/14/24 at 0745, Until Diane 08/15/24 at 1259, Over 22 hours (holding for synthroid), Dosing: Continuous, Starting rate (mL/hr): 55, Advance by (mL/hr): 0, Goal rate (mL/hr): 55 0852 (New Feeding/Supplement - Provider: Eneida Cespedes RN)0900 (Hold - Provider: Eneida Cespedes RN - Reason: Other - Comment: giving synthroid at 10:00)1110 (Restarted - Provider: Eneida Cespedes RN)1654 (Rate/Dose Verify - Provider: Eneida Cespedes RN) 0017 (New Feeding/Supplement - Provider: Shanna Catalan RN)0806 (Hold - Provider: Rosbon Steel RN - Reason: Other - Comment: Hold for Synthroid)1030 (Restarted - Provider: Robson Steel RN) PRN Medication Order 08/13/2024 08/14/2024 08/15/2024 Acetaminophen (TYLENOL) tablet 975 mg(Linked Group 4) 975 mg, PEG Tube, EVERY 8 HOURS NEEDED, Starting on Mon08/09/24 at 1533, Until Diane 08/15/24 at 1259, Moderate Pain, Maximum dose of acetaminophen is 4000 mg from all sources in 24 hours. bisacodyl (DULCOLAX) suppository 10 mg 10 mg, Rectal, DAILY NEEDED, Starting on 08/05/24 at 0728, Until Diane 08/15/24 at 1259, Constipation If No Bowel Movement in 48 Hours Dextrose 50% injection 7.5-25 g(Linked Group 1) 7.5-25 g, Intravenous, ADMINISTER DIRECTED, Starting on 08/03/24 at 1300, Until Diane 08/15/24 at 1259, Blood glucose <80 mg/dL, For patients who are not alert, are NPO, or are on IV insulin infusion administer as directed per Hypoglycemia in Non- Adults Clinical Practice Guideline. For Blood Glucose: 60-79 mg/dL administer 7.5 gm (15ml); 45-59 mg/dL administer 12.5 gm (25ml); less than 45mg/dL administer 25gm (50ml). ++ If additional dextrose 50% needed, contact pharmacy or obtain from crash cart ++ diphenhydrAMINE (BENADRYL) tablet 25 mg 25 mg, PEG Tube, EVERY 12 HOURS NEEDED, Starting on 08/11/24 at 2035, Until Diane 08/15/24 at 1259, Itching 0359 (Given - Provid er: Shanna Catalan RN) glucose (GLUTOSE) 40 % oral gel 1-2 Tube(Linked Group 1) 1-2 Tube, Oral, ADMINISTER DIRECTED, Starting on 08/03/24 at 1300, Until Diane 08/15/24 at 1259, Blood glucose <80 mg/dL, For patients who are alert, able to tolerate PO intake and with intact cognitive status administer as directed per Hypoglycemia in Non- Adults Clinical Practice Guideline. For Blood Glucose: 60-79 mg/dL administer 1 tube; 45-59 mg/dl administer 1.5 tubes; less than 45 mg/dL administer 2 tubes. Each tube of 37.5g delivers 15g of carbohydrate. hydrALAZINE (APRESOLINE) injection 10 mg(Linked Group 5) 10 mg, Intravenous, EVERY 1 HOUR NEEDED, Starting on 08/04/24 at 1154, Until Diane 08/15/24 at 1259, SBP > 160 mmHg with HR <60 bpm, Use as initial dose. Higher dose may be administered if lower dose was previously documented as ineffective 10 minutes after administration and did not result in adverse effects (HR>90). hydrALAZINE (APRESOLINE) injection 20 mg(Linked Group 5) 20 mg, Intravenous, EVERY 1 HOUR NEEDED, Starting on 08/04/24 at 1154, Until Diane 08/15/24 at 1259, SBP > 160 mmHg with HR <60 bpm, Higher dose may be administered if lower dose was previously documented as ineffective 10 minutes after administration and did not result in adverse effects (HR>90). Decrease back to lower dose if patient has adverse effects, or no PRN used in previous 3 hours. Labetalol (NORMODYNE) injection 10 mg(Linked Group 6) 10 mg, Intravenous, EVERY 1 HOUR NEEDED, Starting on 08/04/24 at 1153, Until Diane 08/15/24 at 1259, SBP > 160 mmHg with HR >60 bpm, Use as initial dose. Higher dose may be administered if lower dose was previously documented as ineffective 10 minutes after administration and did not result in adverse effects (HR<60). For vials: labetalol should be treated as a SINGLE USE VIAL. Discard remaining contents after one use. Labetalol (NORMODYNE) injection 20 mg(Linked Group 6) 20 mg, Intravenous, EVERY 1 HOUR NEEDED, Starting on 08/04/24 at 1153, Until Diane 08/15/24 at 1259, SBP > 160 mmHg with HR >60 bpm, Higher dose may be administered if lower dose was previously documented as ineffective 10 minutes after administration and did not result in adverse effects (HR<60). Decrease back to lower dose if patient has adverse effects, or no PRN used in previous 3 hours. For vials: labetalol should be treated as a SINGLE USE VIAL. Discard remaining contents after one use. Ondansetron 4mg/2ml (ZOFRAN) injection 4 mg 4 mg, Intravenous, EVERY 4 HOURS NEEDED, Starting on 08/03/24 at 0809, Until Diane 08/15/24 at 1259, Nausea / Vomiting Linked Groups Order Group 1: Insulin regular (HUMULIN R;NOVOLIN R) injectionJump to med Subcutaneous, EVERY 6 HOURS, First dose (after last modification) on 08/03/24 at 1800, Until Discontinued, Correction factor parameters most appropriate for NPO or tube feeding patients: Blood glucose under 60 = call H.O.; 151 - 200 = 4 units; 201 - 250 = 6 units; 251 - 300 = 8 units; 301 - 350 = 10 units; 351 - 400 = 12 units; Over 400 = call H.O. An initial vial will be sent from the pharmacy without prompting. Replacement vials require a MAR request when needed. Call pharmacy to coordinate expedited delivery if an emergent dose is needed for hyperglycemia treatment. And BLOOD GLUCOSE (POC DEVICE) (CANCELED) Routine, EVERY 6 HOURS, First occurrence on 08/03/24 at 1800, If any Blood Glucose (POC) is greater than 300mg/dl, treat per correction factor orders; and repeat Blood Glucose (POC) in 2 hours if second blood glucose is greater than 200mg/dl, then notify housesmith. And BLOOD GLUCOSE (POC DEVICE) (CANCELED) Routine, PRN, Starting on 08/03/24 at 1300, Until Specified, For all Blood Glucose LESS THAN 80 mg/dL, treat per Hypoglycemia in Non- Adults Clinical Practice Guideline (CPG) and recheck glucose 15 min after treatment. Repeat per CPG until glucose GREATER THAN 80 mg/dL. Once glucose IS GREATER THAN 80 mg/dL, recheck Blood Glucose every 1 hour x2, then resume as previously ordered. For Blood Glucose LESS THAN 80 mg/dL on admission OR LESS than 45 mg/dL at any time, obtain POC Blood Glucose every 4 hours for 6 occurrences AFTER treating per CPG. Obtain blood glucose for symptoms of hypoglycemia: sweating, shaking, fatigue, rapid pulse, slow thinking & dizziness. Notify physician w/results. Obtain blood glucose for symptoms of hyperglycemia: excessive thirst, blurred vision, excessive urination & tiredness. Notify physician w/results. If patient NPO, obtain POC Blood Glucose prior to administration of any insulin products. And COMMUNICATION ORDER FOR NURSING CARE: For Blood Glucose LESS THAN 80 mg/dl (CANCELED) Routine, CONTINUOUS, Starting on 08/03/24 at 1301, Until Specified, For Blood Glucose LESS THAN 80 mg/dl follow Hypoglycemia in Non- Adults Clinical Practice Guideline (CPG) And Dextrose 50% injection 7.5-25 gJump to med 7.5-25 g, Intravenous, ADMINISTER DIRECTED, Starting on 08/03/24 at 1300, Until Daine 08/15/24 at 1259, Blood glucose <80 mg/dL, For patients who are not alert, are NPO, or are on IV insulin infusion administer as directed per Hypoglycemia in Non- Adults Clinical Practice Guideline. For Blood Glucose: 60-79 mg/dL administer 7.5 gm (15ml); 45-59 mg/dL administer 12.5 gm (25ml); less than 45mg/dL administer 25gm (50ml). ++ If additional dextrose 50% needed, contact pharmacy or obtain from crash cart ++ And glucose (GLUTOSE) 40 % oral gel 1-2 TubeJump to med 1-2 Tube, Oral, ADMINISTER DIRECTED, Starting on 08/03/24 at 1300, Until Diane 08/15/24 at 1259, Blood glucose <80 mg/dL, For patients who are alert, able to tolerate PO intake and with intact cognitive status administer as directed per Hypoglycemia in Non- Adults Clinical Practice Guideline. For Blood Glucose: 60-79 mg/dL administer 1 tube; 45-59 mg/dl administer 1.5 tubes; less than 45 mg/dL administer 2 tubes. Each tube of 37.5g delivers 15g of carbohydrate. And NOTIFY PHYSICIAN, Blood Glucose LESS THAN 80 mg/dl (CANCELED) Routine, CONTINUOUS, Starting on 08/03/24 at 1301, Until Specified, Who to Notify: Residential Treatment Specialist, For all Blood Glucose LESS THAN 80 mg/dl, notify Residential Treatment Specialist after treatment per Hypoglycemia in Non- Adults Clinical Practice Guideline Group 2: Polyethylene glycol (MIRALAX) packet 17 gJump to med 17 g, PEG Tube, EVERY 12 HOURS, First dose (after last modification) on Mon08/09/24 at 2100, Until Discontinued Group 3: Senna (SENOKOT) tablet 17.2 mgJump to med 17.2 mg, PEG Tube, EVERY 12 HOURS, First dose (after last modification) on Mon08/09/24 at 2100, Until Discontinued, Hold if BM in last 2 hours. Group 4: Acetaminophen (TYLENOL) tablet 975 mgJump to med 975 mg, PEG Tube, EVERY 8 HOURS NEEDED, Starting on Mon08/09/24 at 1533, Until Diane 08/15/24 at 1259, Moderate Pain, Maximum dose of acetaminophen is 4000 mg from all sources in 24 hours. Group 5: hydrALAZINE (APRESOLINE) injection 10 mgJump to med 10 mg, Intravenous, EVERY 1 HOUR NEEDED, Starting on Mon08/04/24 at 1154, Until Diane 08/15/24 at 1259, SBP > 160 mmHg with HR <60 bpm, Use as initial dose. Higher dose may be administered if lower dose was previously documented as ineffective 10 minutes after administration and did not result in adverse effects (HR>90). Or hydrALAZINE (APRESOLINE) injection 20 mgJump to med 20 mg, Intravenous, EVERY 1 HOUR NEEDED, Starting on 08/04/24 at 1154, Until Diane 08/15/24 at 1259, SBP > 160 mmHg with HR <60 bpm, Higher dose may be administered if lower dose was previously documented as ineffective 10 minutes after administration and did not result in adverse effects (HR>90). Decrease back to lower dose if patient has adverse effects, or no PRN used in previous 3 hours. Group 6: Labetalol (NORMODYNE) injection 10 mgJump to med 10 mg, Intravenous, EVERY 1 HOUR NEEDED, Starting on 08/04/24 at 1153, Until Diane 08/15/24 at 1259, SBP > 160 mmHg with HR >60 bpm, Use as initial dose. Higher dose may be administered if lower dose was previously documented as ineffective 10 minutes after administration and did not result in adverse effects (HR<60). For vials: labetalol should be treated as a SINGLE USE VIAL. Discard remaining contents after one use. Or Labetalol (NORMODYNE) injection 20 mgJump to med 20 mg, Intravenous, EVERY 1 HOUR NEEDED, Starting on 08/04/24 at 1153, Until Diane 08/15/24 at 1259, SBP > 160 mmHg with HR >60 bpm, Higher dose may be administered if lower dose was previously documented as ineffective 10 minutes after administration and did not result in adverse effects (HR<60). Decrease back to lower dose if patient has adverse effects, or no PRN used in previous 3 hours. For vials: labetalol should be treated as a SINGLE USE VIAL. Discard remaining contents after one use. FOR RECORDS PERTAINING TO PATIENTS WHO ARE OR HAVE BEEN ENROLLED IN A CHEMICAL DEPENDENCY/SUBSTANCEABUSE PROGRAM, SOME INFORMATION MAY BE OMITTED. This clinical summary was aggregated from multiple sources. Caution should be exercised in using it in the provision of clinical care. This summary normalizes information from multiple sources, and as a consequence, information in this document may materially change the coding, format and clinical context of patient data. In addition, data may be omitted in some cases. CLINICAL DECISIONS SHOULD BE BASED ON THE PRIMARY CLINICAL RECORDS. [employer] [facility]. provides no warranty or guarantee of the accuracy or completeness of information in this document.
[2024-10-15 08:26] LABS: Absolute Lymphocyte Count 3.04 X10^3/uL (0.83-4.51); Absolute Neutrophil Count 4.3 X10^3/uL (2.0-7.7); Basophil# 0.06 X10^3/uL; Basophil% 0.7 % (0-1); Eosinophils% 2.4 % (0-5); Hematocrit 40.3 % (37-47); Hemoglobin 13.3 g/dL (12.0-15.0); Lymphocyte # 3.04 X10^3/ul (0.83-4.51); Lymphocyte % 36.7 % (19-41); Mean Platelet Vol. 11.9 fl (6.2-12.0); Monocyte# 0.68 X10^3/uL; Monocyte% 8.2 % (0-10); NRBC Flagged by Analyzer 0 % (0-5); Neutrophil # 4.28 X10^3/uL (2.7-7.7); Neutrophil % 51.6 % (47-70); Platelet Count 221 K/mm3 (150-450); RBC Distribution Width CV 13.5 % (11.6-14.6); RBC Distribution Width SD 45.2 fl (35.1-43.9); Red Blood Count 4.43 M/mm3 (4.2-5.4); White Blood Count 8.3 K/mm3 (4.4-11.0)
[2024-10-15 08:51] LABS: Anion Gap 12 (5-15); BUN 30 mg/dL (4-19); BUN/Creat Ratio 36.5 RATIO (10-20); Calcium,Total 9.3 mg/dL (7.6-11.0); Carbon Dioxide 25.2 mmol/L (21.0-32.0); Chloride 100 mmol/L (98-108); Creatinine, Serum 0.83 mg/dL (0.70-1.20); EST Glomerular Filtration Rate 71 (>60); Glucose 68 mg/dL (70-99); Potassium 3.8 mmol/L (3.3-5.1); Sodium Level 138 mmol/L (133-145)
== END ==
LOC: OLS.WHLTCC 05:00
PROVIDERS: PCP Family Medicine; Visit Provider Internal Medicine
DX: I10 Essential (primary) hypertension (principal); I69.354 Hemiplegia and hemiparesis following cerebral infarction affecting left non-dominant side; I69.391 Dysphagia following cerebral infarction; E11.9 Type 2 diabetes mellitus without complications
CPT/HCPCS: 36415; 80048; 85025

== ENCOUNTER → 2024-10-22 05:00 | Outpatient (REF) | payer MEDICARE, SELFPAY ==
--- OUTSIDE RECORDS SUMMARY | 2024-10-22 04:23 | XMS RPT_ITS | CCD ---
Author Organization [facility] Care Team Providers Care News Operations Manager Name Role Phone KETTY DOWNS Attending Unavailable [...] Kameron Caruso MD Primary Care Provider Светлана PROSTHETIC DENTIST.Emma TUCKER Unavailable Saurav PROSTHETIC DENTIST.Mj TUCKER Unavailable JUVENTINO ROGERS Attending Unavailable JUVENTINO [...] Referring Unavailable MADONNA, LUCINDA S Attending Unavailable MADONNA, LUCINDA S Admitting Unavailable Tannhof PROSTHETIC DENTIST.Emma TUCKER Unavailable Unavail able KAMERON CARUSO Referring Unavailable ELDERKAMERON MCKEON Primary Care Unavailable ELDERKAMERON MCKEON Attending Unavailable KAMERON CARUSO Primary Care Unavailable EMMA SOTOMAYOR Attending Unavailable KAMERON CARUSO Primary Care Unavailable ELDERKAMERON MCKEON Primary Care Unavailable ELDERKAMERON MCKEON Primary Care Unavailable KAMERON CARUSO Referring Unavailable ELDERKAMERON MCKEON Primary Care Unavailable ELDERKAMERON MCKEON Attending Unavailable KAMERON CARUSO Primary Care Unavailable KAMERON CARUSO Referring Unavailable KAMERON CARUSO Primary Care Unavailable KAMERON CARUSO Attending Unavailable KAMERON CARUSO Primary Care Unavailable ZULY LAWSON, DR MELO Primary Care Physician [phone] Cathy LAWSON, Dr. Stapleton Attending Provider Safia Ruelas MD Attending Provider Unavailjair Caruso MD, Dr. Melo Referring Provider Makayla LAWSON, Dr. Barker Attending Provider DR KAMERON CARUSO MD Primary Care Unavailab SILVINO Monzon DO Admitting Unavailable SILVINO HA DO Attending Unavailable BRYON LAWSON, DR REECE Consulting Unavailab NANDO Lofton DO Consulting Unavailable HEATON PROSTHETIC DENTIST-ALUMINUM BOAT INSPECTOR, AMI Hwang Consulting Unavailjair GIBSON PhD, MATTHEW Zamudio Consulting Unavailable Kameron Caruso Primary Care Unavailable Claudio CRIMINAL JUSTICE INSTRUCTOR, Bret Attending Unavailable Kameron Caruso Primary Care Unavailable Mj Benavides Attending Unavailable Kameron Caruso Referring Unavailable Oleghe OLS, Efewongbe Attending Unavailabl e ElderKameron mckeon Primary Care Unavailable Enricoe OLS, Efewongbe Attending Unavailabl e ElderKameron mckeon Primary Care Unavailable Oleghe OLS, Efewongbe Attending Unavailabl e Oleghe OLS, Efewongbe Referring Unavailabl e ElderKameron mckeon Primary Care Unavailable ElderKameron mckeon Primary Care Unavailable Oleghe OLS, Efewongbe Attending UnavailPieter Burrell Attending Unavailable Kameron Caruso Primary Care Unavailable Kameron Caruso Primary Care Unavailable Oleghe OLS, Efewongbe Attending Unavailabl e Kameron Caruso Primary Care Unavailable Safia Vanegas Attending Safia Steele Attending Kameron Shah Primary Care Unavailable Kameron Caruso Primary Care Unavailable Safia Ruelas Attending Unavailable Allergies Allergy Classification Reported Allergen(s) Allergy Type Date of Onset Reaction(s) Facility (2 sources) Sulfonamides (Antibiotic) Propensity to adverse reactions to drug 6 Other (See Comments) [place], [place] (2 sources) Other Propensity to adverse reactions 6 Shortness Of Breath [place], [place] (20 sources) Benzocaine; Translations: [BENZOCAINE] Drug Allergy 6 Rash [facility] Work Phone: (20 sources) Cocaine; Translations: [COCAINE] Drug Allergy 9 Inverted T waves [facility] Work Phone: (20 sources) Sulfonamides (Antibiotic); Translations: [SULFA (SULFONAMIDE ANTIBIOTICS)] Propensity to adverse reactions 6 Intolerance [facility] Work Phone: (20 sources) Perfumes; Translations: [PERFUMES] Propensity to adverse reactions 6 Shortness of Breath [facility] Work Phone: (2 sources) Sulfonamides (Antibiotic) Allergy to substance 5 Unknown [facility] (4 sources) perfume; Translations: [perfume] Allergy to substance 5 Shortness of breath [facility] (1 source) Cocaine; Translations: [cocaine nasal] Drug Allergy [facility] (1 source) Codeine; Translations: [codeine] Drug Allergy Pharyngeal swelling (finding) [facility] (1 source) Sulfonamide; Translations: [sulfa drugs] Drug allergy [facility] (1 source) Benzocaine Drug Allergy 5 [facility] (1 source) Cocaine Drug Allergy 5 [facility] (1 source) Sulfonamides (Antibiotic) Drug allergy (disorder) 5 [facility] Medications Current Medications Medication Drug Class(es) [...] 1 tablet by christ th once daily betamethasone 0.5 mg/ml topical lotion [...] above: Take 1 tablet by christ th three times daily as needed for muscle [...] kidney disease, unspecified CKD stage, unspecified whether intermediate insulin use (HCC) , Type 2 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, without long-term current use of insulin (HCC) TAKE 4 TABLETS BY MOUTH ONCE DAILY WITH BREAKFAST 360 tablet 3 01/11/2022 Active Start: 10-24-2018 metFORMIN (GLU COPHAGE-XR) 500 MG extended release tablet Take 2,000 mg by mouth 0 10/24/2018 Active Comment on above: Take 4 tablets by mo [facility] daily with breakfast. TAKE 4 TABLETS BY MO [facility] ONCE DAILY WITH BREAKFAST methylphenidate hydrochloride 5 [...] kidney disease, unspecified CKD stage, unspecified whether termite exterminator insulin use (HCC) Take 1 tablet by mouth once daily 90 tablet 3 01/11/2022 05/27/2022 Discontinued Start: 10-24-2018 glipiZIDE (GLU COTROL XL) 10 MG extended release tablet Take 10 mg by mouth 0 10/24/2018 Active Comment on above: Take 1 tablet by christ th once daily. Take 1 tablet by christ th once daily insulin, regular, human 100 unt/ml [...] Angiotensin Converting Enzyme Inhibitor Start: 3 End: take 2 capsules by mouth once daily [...] capsules by m outh once daily sennosides, fpc 8.6 mg oral tablet (2 sources) Start: 08-09-2024 End: 08-15-2024 Start: 08-04-2024 End: 08-09-2024 triamcinolone acetonide 0.41781 mg/mg topical ointment (3 sources) Corticosteroid Start: 09-29-2023 End: 11-28-2023 triamcinolone (KENALOG) 0.025 % ointment Apply to affected area three times a day. 80 g 1 09/29/2023 11/28/2023 Discontinued (Course of therapy completed) (1 source) Start: 08-06-2024 End: 08-06-2024 (9 sources) Start: 08-04-2024 End: 04-03-2025 take 10 mg intravenously every hour as [...] glucose is greater than 200mg/dl, then notify house wrecker. [Order 2 End] [Order 3 Start] Name: [...] 50% needed, contact pharmacy or obtain from [facility] cart ++ [Order 5 End] [Order 6 [...] at 1301, Until Specified, Who to Notify: School Transportation Director, For all Blood Glucose LESS THAN 80 mg/dl, notify School Transportation Director after treatment per Hypoglycemia in Non- Adults [...] Coronary arteriosclerosis; Translations: [Atherosclerotic heart disease of [place] coronary artery without angina pectoris] Onset: 5 [...] aftercare (2 sources) 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; Translations: [termite exterminator (current) use of anticoagulants] 08-02-2024 Episodic Other aftercare (1 source) snf (current) use of aspirin; Translations: [termite exterminator (current) use of aspirin] Onset: 5 Episodic Other aftercare (1 source) termite exterminator (current) use of anticoagulants; Translations: [termite exterminator (current) use of anticoagulants] Onset: Episodic Other aftercare (1 source) snf (current) use of oral hypoglycemic drugs; Translations: [termite exterminator (current) use of oral hypoglycemic drugs] Onset: [...] (1 source) Dysphagia; Translations: [Dysphagia, unspecified] Onset: 5 Episodic Other gastrointestinal disorders (1 source) Dysphagia, unspecified; Translations: [Dysphagia, unspecified] Onset: 5 Episodic Other gastrointestinal disorders (1 source) Diarrhea, unspecified; Translations: [Diarrhea, unspecified] Onset: Episodic Other infections; including parasitic (2 sources) [...] Range Facility 12 Lead EKG performed by [facility] on 10-02-2024 12 Lead EKG performed by [facility] [address] [place] [address] 12 Lead EKG performed by [facility] 10/02/24920 MR#: [id number] Acct: [id number] Name: LINDSAY ACUNA Rep #: [id number] : 1945 78 From: Mj Benavides MD Attending Dr: Dr. Mj Benavides MD Status: DEP A MB Ordering Dr: Mj Benavides MD Date: 10/02/24 Location: [facility] Sex: F C Admitted: [facility]/12 Lead EKG performed by [facility] ECG Report Interpretation ---Atrial fibrillation -irregular conduction -Old anterior infarct. ABNORMAL Electronically signed on 10/02/2024 at 16:06 by Mj Benavides Software Version [id number] 10/02/24 1608 Date Mj Benavides MD CC: Dr. Kameron Caruso MD Date Dictated: 10/02/24920 Date Transcribed: 10/02/24920 Consultative Sales Associate: [place] Signed Normal [facility] Cardiology Visit Reporton Cardiology Visit Report [facility] [address] [place] [address] OFFICE VISIT Date of Service: 10/02/24 MR#: [id number] Acct: [id number] Name: LINDSAY ACUNA Rep #: [id number] : 1945 Provider: Dr. Mj Benavides MD Age/Sex: 78/F Location: [facility] Status: Signed HPI HPI History of Present [...] now she is currently domiciled in a senior care. Her previous echocardiogram which was performed in [...] weight d/t W/C bound Intake Visit Reasons: AFIB ([facility]) Pad Machine Offbearer Required: No Accompanied by: Significant Other Is [...] normal, nasal (more content not included)... Normal [facility] Absolute lymphocyte countOrd ered By: Safia Ruelas on 10-01-2024 Lymphocytes Auto (Unsp spec) [#/Vol] 2.45 10*3/uL 0.83-4.51 [facility] Absolute neutrophil countOrd ered By: Safia Ruelas on 10-01-2024 Neutrophils (Bld) [#/Vol] 6.5 10*3/uL 2.0-7.7 [facility] Anion gap in Serum or Plasma Ordered By: Safia Ruelas on 10-01-2024 Anion gap [Moles/Vol] 12 mmol/L 5-15 [facility] Automated lymphocyte count a s percentage of total leukocytesOrdered By: Safia Ruelas on 10-01-2024 Lymphocytes/100 WBC Auto (Unsp spec) 23.1 % 19-41 [facility] BUN/creatinine ratioOrdered By: Safia Ruelas on 10-01-2024 Urea nitrogen/Creatinine [Mass ratio] 24.9 mg/mg High 10- [facility] Basophil percentageOrdered B y: Safia Ruelas on 10-01-2024 Basophils/100 WBC (Bld) 0.5 % 0-1 [facility] Carbon dioxide, total [Moles /volume] in Central venous bloodOrdered By: Safia Ruelas on 10-01-2024 CO2 [Moles/Vol] 24.4 mmol/L 21.0-32.0 [facility] Chloride assayOrdered By: Balbir Ruelas on 10-01-2024 Chloride [Moles/Vol] 99 mmol/L 98-108 [facility] Eosinophil percentageOrdered By: Safia Ruelas on 10-01-2024 Eosinophils/100 WBC (Bld) 2.0 % 0-5 [facility] Erythrocyte distribution wid th ratioOrdered By: Safia Ruelas on 10-01-2024 Erythrocyte distribution width (RBC) [Ratio] 13.5 % 11.6-14.6 [facility] Erythrocyte distribution wid th standard deviationOrdered By: Safia Ruelas on 10-01-2024 Erythrocyte distribution width (RBC) [Ratio] 46.2 fl High 35.1-43.9 [facility] Glomerular filtration rate ( GFR) estimation/1.73 sq m using serum, plasma, or whole bOrdered By: Safia Ruelas on 10-01-2024 GFR/1.73 sq M.predicted among non-blacks MDRD (S/P/Bld) [Vol rate/Area] 63 mL/min/{1.73_m2} >60 [facility] Comment on above: mL/min/1.73m2 CKD-EP I Creatinine Equation (2020) Hematocrit Auto (Bld) [Volum e fraction]Ordered By: [facility] Ruelas on 10-01-2024 Hematocrit (Bld) [Volume fraction] 38.7 % 37-47 [facility] Hemoglobin measurementOrdere d By: sherry Ruelas on 10-01-2024 Hemoglobin (Bld) [Mass/Vol] 12.5 g/dL 12.0-15.0 [facility] Immature granulocytes/100 WB C Auto (Bld)Ordered By: Safia Ruelas on 10-01-2024 Immature granulocytes/100 WBC (Bld) 0.800 % 0.0-0.9 [facility] Comment on above: IG% - Immature Granu locytes (promyelocytes, myelocytes and metamyelocytes) > 1% indicates that a LEFT SHIFT is Present. MCV (mean corpuscular volume ) determinationOrdered By: Safia Ruelas on 10-01-2024 MCV (RBC) [Entitic vol] 93.3 fL 81-99 [facility] Mean corpuscular hemoglobin (MCH) determinationOrdered By: Safia Ruelas 10-01-2024 MCH (RBC) [Entitic mass] 30.1 pg 27.0-32.0 [facility] Mean corpuscular hemoglobin concentration (MCHC) determinationOrdered By: Safia Ruelas on 10-01-2024 MCHC (RBC) [Mass/Vol] 32.3 g/dL 32-36 [facility] Mean platelet volume determi nationOrdered By: Safia Choebonikayla on 10-01-2024 Platelet mean volume (Bld) [Entitic vol] 11.7 fL 6.2-12.0 [facility] Monocyte percentageOrdered B y: Bandarskye Griderbonikayla on 10-01-2024 Monocytes/100 WBC (Bld) 12.7 % High 0-10 [facility] Neutrophil percentageOrdered By: Safia Griderbonikayla on 10-01-2024 Neutrophils/100 WBC (Bld) 60.9 % 47-70 [facility] Nucleated red blood cell per centageOrdered By: Balbirsherry Griderbonikayla on 10-01-2024 Nucleated RBC/100 WBC (Bld) [Ratio] 0 % 0-5 [facility] Platelet countOrdered By: Balbir sherry Cheobonikayla on 10-01-2024 Platelets (Bld) [#/Vol] 371 10*3/uL 150-450 [facility] Potassium measurement (mass/ volume)Ordered By: Safia Ruelas on 10-01-2024 Potassium (Unsp spec) [Mass/Vol] 4.2 mmol/L 3.3-5.1 [facility] RBC Auto (Bld) [#/Vol]Ordere d By: Leonidesdesireeskye Griderbonikayla on 10-01-2024 RBC (Bld) [#/Vol] 4.15 10*6/uL Low 4.2-5.4 [facility] Serum creatinine measurement (mass/volume)Ordered By: Safia Ruelas on 10-01-2024 Creatinine [Mass/Vol] 0.93 mg/dL 0.70-1.20 [facility] Serum glucose measurement (m ass/volume)Ordered By: Safia Ruelas on 10-01-2024 Glucose [Mass/Vol] 93 mg/dL 70-99 [facility] Serum or plasma calcium dayna urement (mass/volume)Ordered By: Safia Ruelas on 10-01-2024 Calcium [Mass/Vol] 9.5 mg/dL 7.6-11.0 [facility] Serum or plasma urea nitroge n measurement (mass/volume)Ordered By: Safia Ruelas on 10-01-2024 Urea nitrogen [Mass/Vol] 23 mg/dL High 4-19 [facility] Sodium levelOrdered By: Leonides jiménezradha Jessenia on 10-01-2024 Sodium [Moles/Vol] 135 mmol/L 133-145 [facility] White blood cell (WBC) count Ordered By: Safia Ruelas on 10-01-2024 WBC (Bld) [#/Vol] 10.6 10*3/uL 4.4-11.0 [facility] Clostridium difficile detect ion by polymerase chain reactionOrdered By: Safia Ruelas on 09-29-2024 C. difficile DNA CHUCKY+probe Ql (Unsp spec) [facility] Absolute lymphocyte countOrd ered By: Safia Ruelas on 09-24-2024 Lymphocytes Auto (Unsp spec) [#/Vol] 2.72 10*3/uL 0.83-4.51 [facility] Absolute neutrophil countOrd ered By: Safia Ruelas on 09-24-2024 Neutrophils (Bld) [#/Vol] 6.3 10*3/uL 2.0-7.7 [facility] Anion gap in Serum or Plasma Ordered By: Safia Ruelas on 09-24-2024 Anion gap [Moles/Vol] 12 mmol/L 5-15 [facility] Automated lymphocyte count a s percentage of total leukocytesOrdered By: Safia Ruelas on 09-24-2024 Lymphocytes/100 WBC Auto (Unsp spec) 26.3 % 19-41 [facility] BUN/creatinine ratioOrdered By: Safia Ruelas on 09-24-2024 Urea nitrogen/Creatinine [Mass ratio] 36.4 mg/mg High 10-20 [facility] Basophil percentageOrdered B y: Safia Ruelas on 09-24-2024 Basophils/100 WBC (Bld) 0.7 % 0-1 [facility] Carbon dioxide, total [Moles /volume] in Central venous bloodOrdered By: Safia Ruelas on 09-24-2024 CO2 [Moles/Vol] 24.1 mmol/L 21.0-32.0 [facility] Chloride assayOrdered By: Balbir Ruelas on 09-24-2024 Chloride [Moles/Vol] 100 mmol/L 98-108 [facility] Eosinophil percentageOrdered By: sherry Ruelas 09-24-2024 Eosinophils/100 WBC (Bld) 2.7 % 0-5 [facility] Erythrocyte distribution wid th ratioOrdered By: sherry Ruelas on 09-24-2024 Erythrocyte distribution width (RBC) [Ratio] 13.6 % 11.6-14.6 [facility] Erythrocyte distribution wid th standard deviationOrdered By: jean mariepierzskye Ruelas on 09-24-2024 Erythrocyte distribution width (RBC) [Ratio] 47.1 fl High 35.1-43.9 [facility] Glomerular filtration rate ( GFR) estimation/1.73 sq m using serum, plasma, or whole bOrdered By: Safia Ruelas on 09-24-2024 GFR/1.73 sq M.predicted among non-blacks MDRD (S/P/Bld) [Vol rate/Area] 62 mL/min/{1.73_m2} >60 [facility] Comment on above: mL/min/1.73m2 CKD-EP I Creatinine Equation (2020) Hematocrit Auto (Bld) [Volum e fraction]Ordered By: sherry Ruelas 09-24-2024 Hematocrit (Bld) [Volume fraction] 41.2 % 37-47 [facility] Hemoglobin measurementOrdere d By: Safia Ruelas 09-24-2024 Hemoglobin (Bld) [Mass/Vol] 13.0 g/dL 12.0-15.0 [facility] Immature granulocytes/100 WB C Auto (Bld)Ordered By: Safia Ruelas on 09-24-2024 Immature granulocytes/100 WBC (Bld) 1.000 % High 0.0-0.9 [facility] Comment on above: IG% - Immature Granu locytes (promyelocytes, myelocytes and metamyelocytes) > 1% indicates that a LEFT SHIFT is Present. MCV (mean corpuscular volume ) determinationOrdered By: Safia Ruelas on 09-24-2024 MCV (RBC) [Entitic vol] 94.3 fL 81-99 [facility] Mean corpuscular hemoglobin (MCH) determinationOrdered By: Safia Ruelas on 09-24-2024 MCH (RBC) [Entitic mass] 29.7 pg 27.0-32.0 [facility] Mean corpuscular hemoglobin concentration (MCHC) determinationOrdered By: Safia Ruelas on 09-24-2024 MCHC (RBC) [Mass/Vol] 31.6 g/dL Low 32-36 [facility] Mean platelet volume determi nationOrdered By: Safia Ruelas on 09-24-2024 Platelet mean volume (Bld) [Entitic vol] 11.3 fL 6.2-12.0 [facility] Monocyte percentageOrdered B y: Safia Ruelas on 09-24-2024 Monocytes/100 WBC (Bld) 8.9 % 0-10 [facility] Neutrophil percentageOrdered By: Safia Ruelas on 09-24-2024 Neutrophils/100 WBC (Bld) 60.4 % 47-70 [facility] Nucleated red blood cell per centageOrdered By: Safia Ruelas on 09-24-2024 Nucleated RBC/100 WBC (Bld) [Ratio] 0 % 0-5 [facility] Platelet countOrdered By: Balbir Ruelas on 09-24-2024 Platelets (Bld) [#/Vol] 441 10*3/uL 150-450 [facility] Potassium measurement (mass/ volume)Ordered By: Safia Ruelas on 09-24-2024 Potassium (Unsp spec) [Mass/Vol] 4.3 mmol/L 3.3-5.1 [facility] RBC Auto (Bld) [#/Vol]Ordere d By: Safia Ruelas on 09-24-2024 RBC (Bld) [#/Vol] 4.37 10*6/uL 4.2-5.4 [facility] Serum creatinine measurement (mass/volume)Ordered By: Safia Ruelas on 09-24-2024 Creatinine [Mass/Vol] 0.93 mg/dL 0.70-1.20 [facility] Serum glucose measurement (m ass/volume)Ordered By: Safia Ruelas on 09-24-2024 Glucose [Mass/Vol] 48 mg/dL Low 70-99 [facility] Serum or plasma calcium dayna urement (mass/volume)Ordered By: Safia Ruelas on 09-24-2024 Calcium [Mass/Vol] 9.5 mg/dL 7.6-11.0 [facility] Serum or plasma urea nitroge n measurement (mass/volume)Ordered By: Safia Ruelas on 09-24-2024 Urea nitrogen [Mass/Vol] 34 mg/dL High 4-19 [facility] Sodium levelOrdered By: Leonides jiménezradha Jessenia on 09-24-2024 Sodium [Moles/Vol] 136 mmol/L 133-145 [facility] White blood cell (WBC) count Ordered By: Safia Ruelas on 09-24-2024 WBC (Bld) [#/Vol] 10.4 10*3/uL 4.4-11.0 [facility] Absolute lymphocyte countOrd ered By: Safia Ruelas on 09-17-2024 Lymphocytes Auto (Unsp spec) [#/Vol] 2.52 10*3/uL 0.83-4.51 [facility] Absolute neutrophil countOrd ered By: Safia Ruelas on 09-17-2024 Neutrophils (Bld) [#/Vol] 5.8 10*3/uL 2.0-7.7 [facility] Anion gap in Serum or Plasma Ordered By: Safia Ruelas on 09-17-2024 Anion gap [Moles/Vol] 12 mmol/L 5-15 [facility] Automated lymphocyte count a s percentage of total leukocytesOrdered By: Safia Ruelas on 09-17-2024 Lymphocytes/100 WBC Auto (Unsp spec) 26.3 % 19-41 [facility] BUN/creatinine ratioOrdered By: Safia Ruelas on 09-17-2024 Urea nitrogen/Creatinine [Mass ratio] 45.9 mg/mg High 10-20 [facility] Basophil percentageOrdered B y: Safia Ruelas on 09-17-2024 Basophils/100 WBC (Bld) 0.6 % 0-1 [facility] Calculated very low density lipoprotein (VLDL) cholesterol measurementOrdered By: Safia Ruelas on 09-17-2024 Calculated very low density lipoprotein (VLDL) cholesterol measurement 22 mg/dL 5-40 [facility] Carbon dioxide, total [Moles /volume] in Central venous bloodOrdered By: Safia Ruelas on 09-17-2024 CO2 [Moles/Vol] 24.5 mmol/L 21.0-32.0 [facility] Chloride assayOrdered By: Balbir Ruelas on 09-17-2024 Chloride [Moles/Vol] 98 mmol/L 98-108 [facility] Eosinophil percentageOrdered By: Safia Ruelas on 09-17-2024 Eosinophils/100 WBC (Bld) 3.2 % 0-5 [facility] Erythrocyte distribution wid th ratioOrdered By: jean mariepierzskye Ruelas on 09-17-2024 Erythrocyte distribution width (RBC) [Ratio] 13.4 % 11.6-14.6 [facility] Erythrocyte distribution wid th standard deviationOrdered By: Safia Ruelas on 09-17-2024 Erythrocyte distribution width (RBC) [Ratio] 45.4 fl High 35.1-43.9 [facility] Glomerular filtration rate ( GFR) estimation/1.73 sq m using serum, plasma, or whole bOrdered By: Safia Ruelas on 09-17-2024 GFR/1.73 sq M.predicted among non-blacks MDRD (S/P/Bld) [Vol rate/Area] 69 mL/min/{1.73_m2} >60 [facility] Comment on above: mL/min/1.73m2 CKD-EP I Creatinine Equation (2020) Hematocrit Auto (Bld) [Volum e fraction]Ordered By: Safia Ruelas on 09-17-2024 Hematocrit (Bld) [Volume fraction] 38.8 % 37-47 [facility] Hemoglobin measurementOrdere d By: Safia Ruelas on 09-17-2024 Hemoglobin (Bld) [Mass/Vol] 12.6 g/dL 12.0-15.0 [facility] Immature granulocytes/100 WB C Auto (Bld)Ordered By: Safia Ruelas on 09-17-2024 Immature granulocytes/100 WBC (Bld) 0.700 % 0.0-0.9 [facility] Comment on above: IG% - Immature Granu locytes (promyelocytes, myelocytes and metamyelocytes) > 1% indicates that a LEFT SHIFT is Present. LDL calc ser/plasOrdered By: Safia Ruelas on 09-17-2024 Cholesterol in LDL [Mass/Vol] 120 mg/dL [facility] Comment on above: Dmtrkfexik=069-133 m g/dL & Higher Eqzh=111 mg/dL or greater MCV (mean corpuscular volume ) determinationOrdered By: Safia Ruelas on 09-17-2024 MCV (RBC) [Entitic vol] 91.7 fL 81-99 [facility] Mean corpuscular hemoglobin (MCH) determinationOrdered By: Safia Ruelas on 09-17-2024 MCH (RBC) [Entitic mass] 29.8 pg 27.0-32.0 [facility] Mean corpuscular hemoglobin concentration (MCHC) determinationOrdered By: Safia Ruelas on 09-17-2024 MCHC (RBC) [Mass/Vol] 32.5 g/dL 32-36 [facility] Mean platelet volume determi nationOrdered By: Safia Ruelas on 09-17-2024 Platelet mean volume (Bld) [Entitic vol] 11.4 fL 6.2-12.0 [facility] Monocyte percentageOrdered B y: Safia Ruelas on 09-17-2024 Monocytes/100 WBC (Bld) 8.5 % 0-10 [facility] Neutrophil percentageOrdered By: Safia Ruelas on 09-17-2024 Neutrophils/100 WBC (Bld) 60.7 % 47-70 [facility] Nucleated red blood cell per centageOrdered By: Safia Ruelas on 09-17-2024 Nucleated RBC/100 WBC (Bld) [Ratio] 0 % 0-5 [facility] Platelet countOrdered By: Balbir Ruelas on 09-17-2024 Platelets (Bld) [#/Vol] 311 10*3/uL 150-450 [facility] Potassium measurement (mass/ volume)Ordered By: Safia Ruelas on 09-17-2024 Potassium (Unsp spec) [Mass/Vol] 4.1 mmol/L 3.3-5.1 [facility] RBC Auto (Bld) [#/Vol]Ordere d By: Safia Ruelas on 09-17-2024 RBC (Bld) [#/Vol] 4.23 10*6/uL 4.2-5.4 [facility] Screening total cholesterol/ high density lipoprotein (HDL) cholesterol ratioOrdered By: Safia Ruelas on 09-17-2024 Cholesterol.total/Alta sterol in HDL [Mass ratio] 5.38 {ratio} [facility] Serum creatinine measurement (mass/volume)Ordered By: Safia Ruelas on 09-17-2024 Creatinine [Mass/Vol] 0.86 mg/dL 0.70-1.20 [facility] [facility] Serum glucose measurement (m ass/volume)Ordered By: Safia Ruelas on 09-17-2024 Glucose [Mass/Vol] 216 mg/dL High 70-99 [facility] Serum or plasma calcium dayna urement (mass/volume)Ordered By: Safia Ruelas on 09-17-2024 Calcium [Mass/Vol] 9.4 mg/dL 7.6-11.0 [facility] Serum or plasma cholesterol in HDL measurement (mass/volume)Ordered By: Safia Ruelas on 09-17-2024 Cholesterol in HDL [Mass/Vol] 33 mg/dL Low >40 [facility] Comment on above: National Cholesterol Education Program (NCEP) guidelines:<40 mg/dL: Low HDL-cholesterol (major risk factor for CHD)>= 60 mg/dL: High HDL-cholesterol (negative risk factor for CHD)HDL-cholesterol is affected by a number of factors, e.g. smoking, exercise, hormones, sex and age. Serum or plasma cholesterol measurement (mass/volume)Ordered By: Safia Ruelas on 09-17-2024 Cholesterol [Mass/Vol] 175 mg/dL <201 [facility] Comment on above: Cholesterol level, D esirable <200 mg/dLBorderline high cholesterol 200-239 mg/dLHigh cholesterol >=240 mg/dLRecommendations of the NCEP Adult Treatment Panel for the following risk-cutoff thresholds for the [place] population. Serum or plasma urea nitroge n measurement (mass/volume)Ordered By: Safia Ruelas on 09-17-2024 Urea nitrogen [Mass/Vol] 39 mg/dL High 4-19 [facility] Sodium levelOrdered By: Leonides Ruelas on 09-17-2024 Sodium [Moles/Vol] 134 mmol/L 133-145 [facility] TSH DL <= 0.005 mIU/L QnOrde red By: Safia Ruelas on 09-17-2024 TSH Qn 3.500 uIU/mL 0.300-4.200 [facility] Triglycerides measurementOrd ered By: Safia Ruelas on 09-17-2024 Triglyceride [Mass/Vol] 111 mg/dL <199 [facility] Comment on above: The drugs N-Acetylcy steine and Metamizole may falsely depress this assay. Normal range: <150 mg/dLBorderline High: 150-199 mg/dLHigh: 200-499 mg/dLVery High: >500 mg/dL White blood cell (WBC) count Ordered By: Safia Ruelas on 09-17-2024 WBC (Bld) [#/Vol] 9.6 10*3/uL 4.4-11.0 [facility] Absolute lymphocyte countOrd ered By: Safia Ruelas on 09-10-2024 Lymphocytes Auto (Unsp spec) [#/Vol] 2.11 10*3/uL 0.83-4.51 [facility] Absolute neutrophil countOrd ered By: Safia Ruelas on 09-10-2024 Neutrophils (Bld) [#/Vol] 8.1 10*3/uL High 2.0-7.7 [facility] Anion gap in Serum or Plasma Ordered By: Safia Ruelas on 09-10-2024 Anion gap [Moles/Vol] 13 mmol/L 5-15 [facility] Automated lymphocyte count a s percentage of total leukocytesOrdered By: Safia Ruelas on 09-10-2024 Lymphocytes/100 WBC Auto (Unsp spec) 17.9 % Low 19-41 [facility] BUN/creatinine ratioOrdered By: Safia Ruelas on 09-10-2024 Urea nitrogen/Creatinine [Mass ratio] 29.1 mg/mg High 10-20 [facility] Basophil percentageOrdered B y: Safia Ruelas on 09-10-2024 Basophils/100 WBC (Bld) 0.3 % 0-1 [facility] Bilirubin, totalOrdered By: Leonidespierzskye Ruelas on 09-10-2024 Bilirubin [Mass/Vol] 0.55 mg/dL 0.00-1.30 [facility] Carbon dioxide, total [Moles /volume] in Central venous bloodOrdered By: Safia Ruelas on 09-10-2024 CO2 [Moles/Vol] 23.6 mmol/L 21.0-32.0 [facility] Chloride assayOrdered By: Balbir Ruelas on 09-10-2024 Chloride [Moles/Vol] 97 mmol/L Low 98-108 [facility] Eosinophil percentageOrdered By: sherry Ruelas on 09-10-2024 Eosinophils/100 WBC (Bld) 0.5 % 0-5 [facility] Erythrocyte distribution wid th ratioOrdered By: Safia Ruelas on 09-10-2024 Erythrocyte distribution width (RBC) [Ratio] 13.4 % 11.6-14.6 [facility] Erythrocyte distribution wid th standard deviationOrdered By: jean mariepierzskye Ruelas on 09-10-2024 Erythrocyte distribution width (RBC) [Ratio] 45.2 fl High 35.1-43.9 [facility] Glomerular filtration rate ( GFR) estimation/1.73 sq m using serum, plasma, or whole bOrdered By: Safia Ruelas on 09-10-2024 GFR/1.73 sq M.predicted among non-blacks MDRD (S/P/Bld) [Vol rate/Area] 59 mL/min/{1.73_m2} Low >60 [facility] Comment on above: mL/min/1.73m2 CKD-EP I Creatinine Equation (2020) Hematocrit Auto (Bld) [Volum e fraction]Ordered By: Safia Ruelas on 09-10-2024 Hematocrit (Bld) [Volume fraction] 41.8 % 37-47 [facility] Hemoglobin measurementOrdere d By: Safia Ruelas on 09-10-2024 Hemoglobin (Bld) [Mass/Vol] 13.4 g/dL 12.0-15.0 [facility] Immature granulocytes/100 WB C Auto (Bld)Ordered By: Safia Ruelas on 09-10-2024 Immature granulocytes/100 WBC (Bld) 0.800 % 0.0-0.9 [facility] Comment on above: IG% - Immature Granu locytes (promyelocytes, myelocytes and metamyelocytes) > 1% indicates that a LEFT SHIFT is Present. Laboratory - Chemistry and C hemistry - challengeOrdered By: Safia Ruelas on 09-10-2024 AST [Catalytic activity/Vol] 21 U/L <32 [facility] MCV (mean corpuscular volume ) determinationOrdered By: Safia Ruelas on 09-10-2024 MCV (RBC) [Entitic vol] 92.5 fL 81-99 [facility] Mean corpuscular hemoglobin (MCH) determinationOrdered By: Safia Ruelas on 09-10-2024 MCH (RBC) [Entitic mass] 29.6 pg 27.0-32.0 [facility] Mean corpuscular hemoglobin concentration (MCHC) determinationOrdered By: Safia Ruelas on 09-10-2024 MCHC (RBC) [Mass/Vol] 32.1 g/dL 32-36 [facility] Mean platelet volume determi nationOrdered By: Safia Ruelas on 09-10-2024 Platelet mean volume (Bld) [Entitic vol] 12.6 fL High 6.2-12.0 [facility] Monocyte percentageOrdered B y: Safia Cheoquyen on 09-10-2024 Monocytes/100 WBC (Bld) 12.3 % High 0-10 [facility] Neutrophil percentageOrdered By: Safia Cheoquyen on 09-10-2024 Neutrophils/100 WBC (Bld) 68.2 % 47-70 [facility] Nucleated red blood cell per centageOrdered By: Balbirjean mariejosé antonio Cheobonikayla on 09-10-2024 Nucleated RBC/100 WBC (Bld) [Ratio] 0 % 0-5 [facility] Platelet countOrdered By: Balbir randallskye Ruelas on 09-10-2024 Platelets (Bld) [#/Vol] 190 10*3/uL 150-450 [facility] Potassium measurement (mass/ volume)Ordered By: Safia Ruelas on 09-10-2024 Potassium (Unsp spec) [Mass/Vol] 4.3 mmol/L 3.3-5.1 [facility] RBC Auto (Bld) [#/Vol]Ordere d By: Safia Ruelas on 09-10-2024 RBC (Bld) [#/Vol] 4.52 10*6/uL 4.2-5.4 [facility] Serum creatinine measurement (mass/volume)Ordered By: Safia Ruelas on 09-10-2024 Creatinine [Mass/Vol] 0.98 mg/dL 0.70-1.20 [facility] Serum globulin measurementOr dered By: Safia Ruelas on 09-10-2024 Globulin (S) [Mass/Vol] 3.3 g/dL 2.2-4.2 [facility] Serum glucose measurement (m ass/volume)Ordered By: Safia Ruelas on 09-10-2024 Glucose [Mass/Vol] 181 mg/dL High 70-99 [facility] Serum or plasma alanine raymundo otransferase (ALT) measurementOrdered By: Safia Ruelas on 09-10-2024 ALT [Catalytic activity/Vol] 26 U/L <35 [facility] Serum or plasma albumin dayna urement (mass/volume)Ordered By: Safia Ruelas on 09-10-2024 Albumin [Mass/Vol] 3.4 g/dL 3.4-4.8 [facility] Serum or plasma albumin/glob ulin mass ratioOrdered By: Safia Ruelas on 09-10-2024 Albumin/Globulin [Mass ratio] 1.0 {ratio} 0.9-2.4 [facility] Serum or plasma alkaline hannah sphatase measurementOrdered By: Safia Ruelas on 09-10-2024 ALP [Catalytic activity/Vol] 114 U/L High 35-104 [facility] Serum or plasma calcium dayna urement (mass/volume)Ordered By: Safia Ruelas on 09-10-2024 Calcium [Mass/Vol] 9.3 mg/dL 7.6-11.0 [facility] Serum or plasma urea nitroge n measurement (mass/volume)Ordered By: Safia Ruelas on 09-10-2024 Urea nitrogen [Mass/Vol] 29 mg/dL High 4-19 [facility] Sodium levelOrdered By: Leonides josé antonio Jessenia on 09-10-2024 Sodium [Moles/Vol] 133 mmol/L 133-145 [facility] Total proteinOrdered By: Augustokayla ervin Jessenia on 09-10-2024 Protein [Mass/Vol] 6.7 g/dL 5.9-8.4 [facility] White blood cell (WBC) count Ordered By: Safia Ruelas on 09-10-2024 WBC (Bld) [#/Vol] 11.8 10*3/uL High 4.4-11.0 [facility] LABORATORYOrdered By: Abigail Smith on 09-09-2024 Glucose [Mass/Vol] 212 mg/dL High 82 - 115 mg/dL [employer] Work Phone: Glucose [Mass/Vol] 226 mg/dL High 82 - 115 mg/dL [employer] Work Phone: LABORATORYOrdered By: Zoila Zarco on 09-08-2024 Glucose [Mass/Vol] 149 mg/dL High 82 - 115 mg/dL [employer] Work Phone: LABORATORYOrdered By: Rob Palmer on 09-08-2024 Blood Glucose Testing Reason Routine (09/08/24 6:16 PM) [employer] Work Phone: Blood Glucose Testing Reason Routine (09/08/24 11:58 AM) [employer] Work Phone: LABORATORYOrdered By: Rob Palmer on 09-07-2024 Blood Glucose Testing Reason Routine (09/07/24 4:46 PM) [employer] Work Phone: .Auto Diffon 09-03-2024 Basophil, Absolute 0.1 10 3/mcL Normal 0.0-0.3 [facility] Comment on above: Performed By: #### A DIFF, CBC, ANEU, GFR, BMP #### [address] [address] Basophils/100 WBC (Bld) 1.0 % Normal 0.0-2.5 [facility] Comment on above: Performed By: #### A DIFF, CBC, ANEU, GFR, BMP #### [address] [address] Eosinophil, Absolute 0.2 10 3/mcL Normal 0.0-0.7 [facility] Comment on above: Performed By: #### A DIFF, CBC, ANEU, GFR, BMP #### [address] [address] Eosinophils/100 WBC (Bld) 3.2 % Normal 0.0-6.0 [facility] Comment on above: Performed By: #### A DIFF, CBC, ANEU, GFR, BMP #### [address] [address] Lymphocyte, Absolute 2.0 10 3/mcL Normal 0.9-4.3 [facility] Comment on above: Performed By: #### A DIFF, CBC, ANEU, GFR, BMP #### [address] [address] Lymphocytes/100 WBC (Bld) 26.6 % Normal 20.0-40.0 [facility] Comment on above: Performed By: #### A DIFF, CBC, ANEU, GFR, BMP #### [address] [address] Monocyte, Absolute 0.7 10 3/mcL Normal 0.1-1.4 [facility] Comment on above: Performed By: #### A DIFF, CBC, ANEU, GFR, BMP #### [address] [address] Monocytes/100 WBC (Bld) 9.7 % Normal 2.0-13.0 [facility] Comment on above: Performed By: #### A DIFF, CBC, ANEU, GFR, BMP #### [address] [address] Neutrophils/100 WBC (Bld) 59.5 % Normal 50.0-75.0 [facility] Comment on above: Performed By: #### A DIFF, CBC, ANEU, GFR, BMP #### [address] [address] .GFRon 09-03-2024 Estimated Glomerular Filtration Rate 57 ml/min/1.73sqm Normal [facility] Comment on above: Result Comment: [...] A DIFF, CBC, ANEU, GFR, BMP #### [address] [address] .NEUABSon 09-03-2024 Neutrophil, Absolute 4.5 10 3/mcL Normal 2.3-8.1 [facility] Comment on above: Performed By: #### A DIFF, CBC, ANEU, GFR, BMP #### [address] [address] B12on 09-03-2024 Cobalamin (Vitamin B12) [Mass/Vol] 834 pg/mL Normal 211-911 [facility] Comment on above: Performed By: #### A DIFF, CBC, ANEU, GFR, BMP #### [place] [id number] [place] [address] CBCon 09-03-2024 Erythrocyte distribution width (RBC) [Ratio] 14.7 % Normal 11.5-15.5 [facility] Comment on above: Performed By: #### A DIFF, CBC, ANEU, GFR, BMP #### [place] [address] Hematocrit (Bld) [Volume fraction] 39.7 % Normal 34.0-46.0 [facility] Comment on above: Performed By: #### A DIFF, CBC, ANEU, GFR, BMP #### [place] [address] Hgb 13.2 G/dL Normal 12.0-16.0 [facility] Comment on above: Performed By: #### A DIFF, CBC, ANEU, GFR, BMP #### [place] [address] MCH (RBC) [Entitic mass] 30.6 pg Normal 27.0-33.0 [facility] Comment on above: Performed By: #### A DIFF, CBC, ANEU, GFR, BMP #### [place] [address] MCHC 33.3 G/dL Normal 32.0-36.0 [facility] Comment on above: Performed By: #### A DIFF, CBC, ANEU, GFR, BMP #### [place] [address] MCV (RBC) [Entitic vol] 91.9 fL Normal 80.0-99.0 [facility] Comment on above: Performed By: #### A DIFF, CBC, ANEU, GFR, BMP #### [place] [address] Platelet 228 10 3/mcL Normal 150-450 [facility] Comment on above: Performed By: #### A DIFF, CBC, ANEU, GFR, BMP #### [place] [address] Platelet mean volume (Bld) [Entitic vol] 10.1 fL Normal 6.6-10.5 [facility] Comment on above: Performed By: #### A DIFF, CBC, ANEU, GFR, BMP #### [place] [address] RBC 4.32 10 6/mcL Normal 4.10-5.30 [facility] Comment on above: Performed By: #### A DIFF, CBC, ANEU, GFR, BMP #### [place] [address] WBC 7.6 10 3/mcL Normal 4.5-10.8 [facility] Comment on above: Performed By: #### A DIFF, CBC, ANEU, GFR, BMP #### [place] [address] CMPon 09-03-2024 Albumin Level 3.0 G/dL Low 3.2-4.8 [facility] Comment on above: Performed By: #### A DIFF, CBC, ANEU, GFR, BMP #### [place] [address] Albumin/Globulin [Mass ratio] 0.9 {ratio} Normal 0.9-1.6 [facility] Comment on above: Performed By: #### A DIFF, CBC, ANEU, GFR, BMP #### [place] [address] ALP [Catalytic activity/Vol] 115 U/L Normal 38-126 [facility] Comment on above: Performed By: #### A DIFF, CBC, ANEU, GFR, BMP #### [place] [id number] ALT [Catalytic activity/Vol] 37 U/L Normal 10-49 [facility] Comment on above: Performed By: #### A DIFF, CBC, ANEU, GFR, BMP #### [place] [id number] AST [Catalytic activity/Vol] 31 U/L Normal 8-34 [facility] Comment on above: Performed By: #### A DIFF, CBC, ANEU, GFR, BMP #### [address] [address] Bili Total 0.50 mg/dL Normal 0.20-1.20 [facility] Comment on above: Result Comment: Use of this assay is not recommended for patients undergoing treatment with eltrombopag due to the potential for falsely elevated results. Performed By: #### A DIFF, CBC, ANEU, GFR, BMP #### [place] [address] BUN/Creatinine Ratio 29.7 ratio High 10.0-22.0 [facility] Comment on above: Performed By: #### A DIFF, CBC, ANEU, GFR, BMP #### [place] [address] Calcium [Mass/Vol] 9.6 mg/dL Normal 8.7-10.4 [facility] Comment on above: Performed By: #### A DIFF, CBC, ANEU, GFR, BMP #### [place] [id number] Chloride [Moles/Vol] 101 mmol/L Normal 98-110 [facility] Comment on above: Performed By: #### A DIFF, CBC, ANEU, GFR, BMP #### [place] [address] CO2 [Moles/Vol] 27 mmol/L Normal 22-32 [facility] Comment on above: Performed By: #### A DIFF, CBC, ANEU, GFR, BMP #### [place] [address] Creatinine [Mass/Vol] 1.01 mg/dL Normal 0.50-1.20 [facility] Comment on above: Result Comment: Test ing performed on Voyando analyzer using enzymatic creatinine methodology. Performed By: #### A DIFF, CBC, ANEU, GFR, BMP #### [address] [address] Electrolyte Balance 10.0 mEq/L Normal 4.0-15.0 [facility] Comment on above: Performed By: #### A DIFF, CBC, ANEU, GFR, BMP #### [address] [address] Globulin 3.4 G/dL Normal 1.5-3.8 [facility] Comment on above: Performed By: #### A DIFF, CBC, ANEU, GFR, BMP #### [place] [id number] [place] [address] Glucose [Mass/Vol] 187 mg/dL High 82-115 [facility] Comment on above: Performed By: #### A DIFF, CBC, ANEU, GFR, BMP #### [address] [address] Potassium [Moles/Vol] 4.6 mmol/L Normal 3.5-5.0 [facility] Comment on above: Performed By: #### A DIFF, CBC, ANEU, GFR, BMP #### [address] [address] Sodium [Moles/Vol] 138 mmol/L Normal 136-145 [facility] Comment on above: Performed By: #### A DIFF, CBC, ANEU, GFR, BMP #### [address] [address] Total Protein 6.4 G/dL Normal 5.7-8.2 [facility] Comment on above: Performed By: #### A DIFF, CBC, ANEU, GFR, BMP #### [address] [address] Urea nitrogen [Mass/Vol] 30.0 mg/dL High 8.0-22.0 [facility] Comment on above: Performed By: #### A DIFF, CBC, ANEU, GFR, BMP #### [address] [address] LABORATORYOrdered By: Ann Carrillo on 09-03-2024 Glucose [Mass/Vol] 270 mg/dL [facility] Work Phone: LABORATORYOrdered By: SYSTEM SYSTEM on [...] above: Interpretive Data: T esting performed on Voyando analyzer using enzymatic creatinine methodology. Electrolyte Balance [...] TSHon 09-03-2024 TSH 3.920 mIU/mL Normal 0.550-4.780 [facility] Comment on above: Performed By: #### A DIFF, CBC, ANEU, GFR, BMP #### [place] [address] CT HEAD OR BRAIN W/O CONTRAS Ton [...] Date: 09/02/2024 3:10:44 PM Ordering Provider: SILVINO HA [facility] [place] 08-30-2024 RANDEE Telephone (FAMPWS) LINDSAY ACUNA ([id number]) 1945 F Date Time Provider Department 08/30/24 [facility] During your visit today, we recorded the following information about you: Jaiden Paulino RN 08/30/2024 9:11 AM Signed Marya- [facility] reports patient was in [facility] with dx: stroke, and transferred to [facility]. Pt will be discharged from [facility] on 09/07/24 to home with [facility] SN PT OT [facility]. Asking if pcp agreeable to follow for C. Please phone Marya with verbal: [phone] Mj Glover APRN.GARRETT 08/30/2024 9:19 AM Signed Please let know that Dr. Caruso's team will follow orders. Okay to proceed. Mj Glover APRN.Fouzia Reynoso LPN 08/30/2024 10:09 AM Signed Marya with [facility] notified. Allergies As of Date: 08/30/2024 Noted Allergy Reaction BENZOCAINE 07/08/2005 2 - Rash COCAINE 05/28/2008 Comments: Inverted T PERFUMES 07/08/2005 12 - Shortness of Breath Comments: coughes and chokes SULFA (SULFONAMIDE ANTIBIOTICS) 07/08/2005 5 - Intolerance Date Reviewed: 06/26/2024 Reviewed by: Bret Arambula LPN - Fully Assessed Reason for Visit: [facility] requesting verbal agree to follow [Other] Prescriptions [...] daily Dx: E11.29 Insulin: No - lancets ([employer]CH [employer]US LANCET) 30 gauge Test blood [...] Status:Closed by FOUZIA MILLER on 08/30/24 Normal [facility] .Auto Diffon 08-26-2024 Basophil, Absolute 0.1 10 3/mcL Normal 0.0-0.3 [facility] Comment on above: Performed By: #### A DIFF, CBC, ANEU, GFR, BMP #### [address] [address] Basophils/100 WBC (Bld) 1.0 % Normal 0.0-2.5 [facility] Comment on above: Performed By: #### A DIFF, CBC, ANEU, GFR, BMP #### [address] [address] Eosinophil, Absolute 0.3 10 3/mcL Normal 0.0-0.7 [facility] Comment on above: Performed By: #### A DIFF, CBC, ANEU, GFR, BMP #### [address] [address] Eosinophils/100 WBC (Bld) 4.2 % Normal 0.0-6.0 [facility] Comment on above: Performed By: #### A DIFF, CBC, ANEU, GFR, BMP #### [address] [address] Lymphocyte, Absolute 2.2 10 3/mcL Normal 0.9-4.3 [facility] Comment on above: Performed By: #### A DIFF, CBC, ANEU, GFR, BMP #### [address] [address] Lymphocytes/100 WBC (Bld) 26.3 % Normal 20.0-40.0 [facility] Comment on above: Performed By: #### A DIFF, CBC, ANEU, GFR, BMP #### [address] [address] Monocyte, Absolute 0.9 10 3/mcL Normal 0.1-1.4 [facility] Comment on above: Performed By: #### A DIFF, CBC, ANEU, GFR, BMP #### [address] [address] Monocytes/100 WBC (Bld) 11.4 % Normal 2.0-13.0 [facility] Comment on above: Performed By: #### A DIFF, CBC, ANEU, GFR, BMP #### [address] [address] Neutrophils/100 WBC (Bld) 57.1 % Normal 50.0-75.0 [facility] Comment on above: Performed By: #### A DIFF, CBC, ANEU, GFR, BMP #### [address] [address] .GFRon 08-26-2024 Estimated Glomerular Filtration Rate 59 ml/min/1.73sqm Normal [facility] Comment on above: Result Comment: [...] A DIFF, CBC, ANEU, GFR, BMP #### [address] [address] .NEUABSon 08-26-2024 Neutrophil, Absolute 4.7 10 3/mcL Normal 2.3-8.1 [facility] Comment on above: Performed By: #### A DIFF, CBC, ANEU, GFR, BMP #### [address] [address] BMPon 08-26-2024 BUN/Creatinine Ratio 35.1 ratio High 10.0-22.0 [facility] Comment on above: Performed By: #### A DIFF, CBC, ANEU, GFR, BMP #### [address] [address] Calcium [Mass/Vol] 9.8 mg/dL Normal 8.7-10.4 [facility] Comment on above: Performed By: #### A DIFF, CBC, ANEU, GFR, BMP #### [address] [address] Chloride [Moles/Vol] 98 mmol/L Normal 98-110 [facility] Comment on above: Performed By: #### A DIFF, CBC, ANEU, GFR, BMP #### [address] [address] CO2 [Moles/Vol] 25 mmol/L Normal 22-32 [facility] Comment on above: Performed By: #### A DIFF, CBC, ANEU, GFR, BMP #### [address] [address] Creatinine [Mass/Vol] 0.97 mg/dL Normal 0.50-1.20 [facility] Comment on above: Result Comment: Test ing performed on Voyando analyzer using enzymatic creatinine methodology. Performed By: #### A DIFF, CBC, ANEU, GFR, BMP #### [address] [address] Electrolyte Balance 12.0 mEq/L Normal 4.0-15.0 [facility] Comment on above: Performed By: #### A DIFF, CBC, ANEU, GFR, BMP #### [address] [address] Glucose [Mass/Vol] 160 mg/dL High 82-115 [facility] Comment on above: Performed By: #### A DIFF, CBC, ANEU, GFR, BMP #### [address] [address] Potassium [Moles/Vol] 4.7 mmol/L Normal 3.5-5.0 [facility] Comment on above: Result Comment: Spec imen slightly hemolyzed. Performed By: #### A DIFF, CBC, ANEU, GFR, BMP #### [address] [address] Sodium [Moles/Vol] 135 mmol/L Low 136-145 [facility] Comment on above: Performed By: #### A DIFF, CBC, ANEU, GFR, BMP #### [address] [address] Urea nitrogen [Mass/Vol] 34.0 mg/dL High 8.0-22.0 [facility] Comment on above: Performed By: #### A DIFF, CBC, ANEU, GFR, BMP #### [address] [address] CBCon 08-26-2024 Erythrocyte distribution width (RBC) [Ratio] 14.0 % Normal 11.5-15.5 [facility] Comment on above: Performed By: #### A DIFF, CBC, ANEU, GFR, BMP #### [place] [id number] Hematocrit (Bld) [Volume fraction] 41.0 % Normal 34.0-46.0 [facility] Comment on above: Performed By: #### A DIFF, CBC, ANEU, GFR, BMP #### [place] [id number] Hgb 13.4 G/dL Normal 12.0-16.0 [facility] Comment on above: Performed By: #### A DIFF, CBC, ANEU, GFR, BMP #### [place] [id number] MCH (RBC) [Entitic mass] 30.0 pg Normal 27.0-33.0 [facility] Comment on above: Performed By: #### A DIFF, CBC, ANEU, GFR, BMP #### [place] [id number] MCHC 32.7 G/dL Normal 32.0-36.0 [facility] Comment on above: Performed By: #### A DIFF, CBC, ANEU, GFR, BMP #### [place] [address] MCV (RBC) [Entitic vol] 91.9 fL Normal 80.0-99.0 [facility] Comment on above: Performed By: #### A DIFF, CBC, ANEU, GFR, BMP #### [address] [address] Platelet 297 10 3/mcL Normal 150-450 [facility] Comment on above: Performed By: #### A DIFF, CBC, ANEU, GFR, BMP #### [address] [address] Platelet mean volume (Bld) [Entitic vol] 11.0 fL High 6.6-10.5 [facility] Comment on above: Performed By: #### A DIFF, CBC, ANEU, GFR, BMP #### [address] [address] RBC 4.46 10 6/mcL Normal 4.10-5.30 [facility] Comment on above: Performed By: #### A DIFF, CBC, ANEU, GFR, BMP #### [address] [address] WBC 8.3 10 3/mcL Normal 4.5-10.8 [facility] Comment on above: Performed By: #### A DIFF, CBC, ANEU, GFR, BMP #### [address] [address] LABORATORYOrdered By: SYSTEM SYSTEM on 08-26-2024 Basophils (Bld) [#/Vol] 0.1 103/mcL Normal 0.0 - 0.3 10^3/mcL AH Workflow SS Basophils/100 WBC (Bld) 1.0 % Normal 0.0 - 2.5 % Workflow SS Calcium [Mass/Vol] 9.8 mg/dL Normal 8.7 - 10. 4 mg/dL ADM SS Chloride [Moles/Vol] 98 mmol/L Normal 98 - 11 0 mEq/L AH ADM SS CO2 [Moles/Vol] 25 mmol/L Normal 22 - 32 mEq/L ADM SS Creatinine [Mass/Vol] 0.97 mg/dL Normal 0.50 - 1.20 mg/dL ADM SS Comment on above: Interpretive Data: T esting performed on Voyando analyzer using enzymatic creatinine methodology. Electrolyte Balance 12.0 mEq/L Normal 4.0 - 15 .0 mEq/L AH ADM SS Eosinophils (Bld) [#/Vol] 0.3 103/mcL [...] 2.2 103/mcL Normal 0.9 - 4.3 10^3/mcL AH Workflow SS Lymphocytes/100 WBC (Bld) 26.3 % Normal 20.0 - 40.0 % AH Workflow SS MCH (RBC) [Entitic mass] 30.0 pg Normal 27.0 - 33.0 pg AH Workflow SS MCHC 32.7 G/dL Normal 32.0 - 36.0 G/dL AH [...] SS XR HAND AND WRIST 6 VIEWS [facility] 08-25-2024 XR HAND AND WRIST 6 VIEWS [...] Sign Date: 08/25/2024 2:27:26 PM Ordering Provider: [facility] MAIN XR HUMERUS MINIMUM 2 VIEWS [place] 08-25-2024 XR HUMERUS MINIMUM 2 VIEWS LEFT [...] Sign Date: 08/25/2024 2:26:11 PM Ordering Provider: [facility] MAIN XR SHOULDER MINIMUM 2 VIEWS LEFTon [...] Sign Date: 08/25/2024 2:26:45 PM Ordering Provider: [facility] MAIN LABORATORYOrdered By: Kala lux on 08-23-2024 Glucose [Mass/Vol] 278 mg/dL [facility] Work Phone: LABORATORYOrdered By: Kala lux on 08-22-2024 Glucose [Mass/Vol] 320 mg/dL [facility] Work Phone: A1Con 08-21-2024 Glucose [Mass/Vol] 194 mg/dL Normal [facility] MAIN Comment on above: Result Comment: Nancy mated Average Glucose calculated by equation ((28.7xA1C)-46.7) Estimated average glucose (eAG) is a calculated value from Hemoglobin A1C and is public service representative of the average blood glucose level in the last 2-3 month period. Normal range: less than 114 mg/dL Performed By: #### A 1C #### [address] [address] HbA1c (Bld) [Mass fraction] 8.4 % High 4.0-6.0 [facility] MAIN Comment on above: Performed By: #### A 1C #### [address] [address] LABORATORYOrdered By: SYSTEM SYSTEM on 08-21-2024 Glucose [Mass/Vol] 194 mg/dL Invalid Interpretation Code Auto Chem SS Comment on above: Interpretive Data: E stimated average glucose (eAG) is a calculated value from Hemoglobin A1C and is public service representative of the average blood glucose level in the last 2-3 month period. Normal range: less than 114 mg/dL HbA1c (Bld) [Mass fraction] 8.4 % High 4.0 - 6.0 % Auto Chem SS .Auto Diffon 08-20-2024 Basophil, Absolute 0.1 10 3/mcL Normal 0.0-0.3 [facility] MA[facility] Comment on above: Performed By: #### B MP, ADIFF, CBC, GFR, ANEU #### [address] [address] Basophils/100 WBC (Bld) 1.1 % Normal 0.0-2.5 [facility] MA[facility] Comment on above: Performed By: #### B MP, ADIFF, CBC, GFR, ANEU #### [address] [address] Eosinophil, Absolute 0.3 10 3/mcL Normal 0.0-0.7 [facility] Comment on above: Performed By: #### B MP, ADIFF, CBC, GFR, ANEU #### [address] [address] Eosinophils/100 WBC (Bld) 3.6 % Normal 0.0-6.0 [facility] Comment on above: Performed By: #### B MP, ADIFF, CBC, GFR, ANEU #### [address] [address] Lymphocyte, Absolute 1.7 10 3/mcL Normal 0.9-4.3 [facility] Comment on above: Performed By: #### B MP, ADIFF, CBC, GFR, ANEU #### [address] [address] Lymphocytes/100 WBC (Bld) 20.8 % Normal 20.0-40.0 [facility] Comment on above: Performed By: #### B MP, ADIFF, CBC, GFR, ANEU #### [address] [address] Monocyte, Absolute 0.9 10 3/mcL Normal 0.1-1.4 [facility] Comment on above: Performed By: #### B MP, ADIFF, CBC, GFR, ANEU #### [address] [address] Monocytes/100 WBC (Bld) 11.4 % Normal 2.0-13.0 [facility] Comment on above: Performed By: #### B MP, ADIFF, CBC, GFR, ANEU #### [address] [address] Neutrophils/100 WBC (Bld) 63.1 % Normal 50.0-75.0 [facility] Comment on above: Performed By: #### B MP, ADIFF, CBC, GFR, ANEU #### [address] [address] .GFRon 08-20-2024 Estimated Glomerular Filtration Rate 55 ml/min/1.73sqm Normal [facility] Comment on above: Result Comment: [...] A DIFF, CBC, ANEU, GFR, BMP #### [address] [address] .NEUABSon 08-20-2024 Neutrophil, Absolute 5.1 10 3/mcL Normal 2.3-8.1 [facility] Comment on above: Performed By: #### B MP, ADIFF, CBC, GFR, ANEU #### [address] [address] BMPon 08-20-2024 BUN/Creatinine Ratio 29.8 ratio High 10.0-22.0 [facility] Comment on above: Performed By: #### B MP, ADIFF, CBC, GFR, ANEU #### [address] [address] Calcium [Mass/Vol] 9.8 mg/dL Normal 8.7-10.4 [facility] Comment on above: Performed By: #### B MP, ADIFF, CBC, GFR, ANEU #### [address] [address] Chloride [Moles/Vol] 95 mmol/L Low 98-110 [facility] Comment on above: Performed By: #### B MP, ADIFF, CBC, GFR, ANEU #### [address] [address] CO2 [Moles/Vol] 34 mmol/L High 22-32 [facility] Comment on above: Performed By: #### B MP, ADIFF, CBC, GFR, ANEU #### [place] [address] Creatinine [Mass/Vol] 1.04 mg/dL Normal 0.50-1.20 [facility] MAIN Comment on above: Result Comment: Test ing performed on Voyando analyzer using enzymatic creatinine methodology. Performed By: #### B MP, ADIFF, CBC, GFR, ANEU #### [place] [address] Electrolyte Balance 5.0 mEq/L Normal 4.0-15.0 [facility] MAIN Comment on above: Performed By: #### B MP, ADIFF, CBC, GFR, ANEU #### [place] [id number] Glucose [Mass/Vol] 244 mg/dL High 82-115 [facility] MAIN Comment on above: Performed By: #### B MP, ADIFF, CBC, GFR, ANEU #### [place] [address] Potassium [Moles/Vol] 4.8 mmol/L Normal 3.5-5.0 [facility] Comment on above: Result Comment: Spec imen slightly hemolyzed. Performed By: #### B MP, ADIFF, CBC, GFR, ANEU #### [place] [address] Sodium [Moles/Vol] 134 mmol/L Low 136-145 [facility] MAIN Comment on above: Performed By: #### B MP, ADIFF, CBC, GFR, ANEU #### [place] [id number] Urea nitrogen [Mass/Vol] 31.0 mg/dL High 8.0-22.0 [facility] Comment on above: Performed By: #### B MP, ADIFF, CBC, GFR, ANEU #### [place] [id number] CBCon 08-20-2024 Erythrocyte distribution width (RBC) [Ratio] 14.0 % Normal 11.5-15.5 [facility] Comment on above: Performed By: #### B MP, ADIFF, CBC, GFR, ANEU #### [place] [id number] Hematocrit (Bld) [Volume fraction] 41.9 % Normal 34.0-46.0 [facility] Comment on above: Performed By: #### B MP, ADIFF, CBC, GFR, ANEU #### [place] [address] Hgb 13.6 G/dL Normal 12.0-16.0 [facility] Comment on above: Performed By: #### B MP, ADIFF, CBC, GFR, ANEU #### [place] [address] MCH (RBC) [Entitic mass] 29.7 pg Normal 27.0-33.0 [facility] Comment on above: Performed By: #### B MP, ADIFF, CBC, GFR, ANEU #### [place] [address] MCHC 32.4 G/dL Normal 32.0-36.0 [facility] Comment on above: Performed By: #### B MP, ADIFF, CBC, GFR, ANEU #### [place] [address] MCV (RBC) [Entitic vol] 91.5 fL Normal 80.0-99.0 [facility] MA[facility] Comment on above: Performed By: #### B MP, ADIFF, CBC, GFR, ANEU #### [place] [address] Platelet 301 10 3/mcL Normal 150-450 [facility] Comment on above: Performed By: #### B MP, ADIFF, CBC, GFR, ANEU #### [place] [address] Platelet mean volume (Bld) [Entitic vol] 11.0 fL High 6.6-10.5 [facility] Comment on above: Performed By: #### B MP, ADIFF, CBC, GFR, ANEU #### [place] [address] RBC 4.58 10 6/mcL Normal 4.10-5.30 [facility] Comment on above: Performed By: #### B MP, ADIFF, CBC, GFR, ANEU #### [facility] [address] [place] [address] WBC 8.1 10 3/mcL Normal 4.5-10.8 [facility] Comment on above: Performed By: #### B NICOLLE, DORY, CBC, GFR, ANEU #### [place] [id number] [place] [address] LABORATORYOrdered By: SYSTEM SYSTEM on 08-20-2024 Basophils [...] 1.04 mg/dL Normal 0.50 - 1.20 mg/dL ADM SS Comment on above: Interpretive Data: T esting performed on Voyando analyzer using enzymatic creatinine methodology. Electrolyte Balance [...] 31.0 mg/dL High 8.0 - 22.0 mg/dL ADM SS Urea nitrogen/Creatinine [Mass ratio] 29.8 [...] 08/18/2024 3:14:15 PM Ordering Provider: NANDO Anderson [facility] .Auto Diffon 08-16-2024 Basophil, Absolute 0.1 10 3/mcL Normal 0.0-0.3 [facility] Comment on above: Performed By: #### A DIFF, CBC, ANEU, GFR, BMP #### [address] [address] Basophils/100 WBC (Bld) 0.7 % Normal 0.0-2.5 [facility] MA[facility] Comment on above: Performed By: #### A DIFF, CBC, ANEU, GFR, BMP #### [address] [address] Eosinophil, Absolute 0.3 10 3/mcL Normal 0.0-0.7 [facility] Comment on above: Performed By: #### A DIFF, CBC, ANEU, GFR, BMP #### [address] [address] Eosinophils/100 WBC (Bld) 2.1 % Normal 0.0-6.0 [facility] Comment on above: Performed By: #### A DIFF, CBC, ANEU, GFR, BMP #### [address] [address] Lymphocyte, Absolute 1.9 10 3/mcL Normal 0.9-4.3 [facility] Comment on above: Performed By: #### A DIFF, CBC, ANEU, GFR, BMP #### [address] [address] Lymphocytes/100 WBC (Bld) 14.8 % Low 20.0-40.0 [facility] Comment on above: Performed By: #### A DIFF, CBC, ANEU, GFR, BMP #### [address] [address] Monocyte, Absolute 1.2 10 3/mcL Normal 0.1-1.4 [facility] Comment on above: Performed By: #### A DIFF, CBC, ANEU, GFR, BMP #### [address] [address] Monocytes/100 WBC (Bld) 9.8 % Normal 2.0-13.0 [facility] Comment on above: Performed By: #### A DIFF, CBC, ANEU, GFR, BMP #### [address] [address] Neutrophils/100 WBC (Bld) 72.6 % Normal 50.0-75.0 [facility] Comment on above: Performed By: #### A DIFF, CBC, ANEU, GFR, BMP #### [address] [address] .GFRon 08-16-2024 Estimated Glomerular Filtration Rate 58 ml/min/1.73sqm Normal [facility] Comment on above: Result Comment: [...] A DIFF, CBC, ANEU, GFR, BMP #### [address] [address] .NEUABSon 08-16-2024 Neutrophil, Absolute 9.2 10 3/mcL High 2.3-8.1 [facility] Comment on above: Performed By: #### A DIFF, CBC, ANEU, GFR, BMP #### [address] [address] BMPon 08-16-2024 BUN/Creatinine Ratio 34.3 ratio High 10.0-22.0 [facility] Comment on above: Performed By: #### A DIFF, CBC, ANEU, GFR, BMP #### [address] [address] Calcium [Mass/Vol] 9.0 mg/dL Normal 8.7-10.4 [facility] Comment on above: Performed By: #### A DIFF, CBC, ANEU, GFR, BMP #### [address] [address] Chloride [Moles/Vol] 100 mmol/L Normal 98-110 [facility] Comment on above: Performed By: #### A DIFF, CBC, ANEU, GFR, BMP #### [address] [address] CO2 [Moles/Vol] 30 mmol/L Normal 22-32 [facility] Comment on above: Performed By: #### A DIFF, CBC, ANEU, GFR, BMP #### [address] [address] Creatinine [Mass/Vol] 0.99 mg/dL Normal 0.50-1.20 [facility] Comment on above: Result Comment: Test ing performed on Voyando analyzer using enzymatic creatinine methodology. Performed By: #### A DIFF, CBC, ANEU, GFR, BMP #### [place] [id number] Electrolyte Balance 5.0 mEq/L Normal 4.0-15.0 [facility] MA[facility] Comment on above: Performed By: #### A DIFF, CBC, ANEU, GFR, BMP #### [address] [address] Glucose [Mass/Vol] 259 mg/dL High 82-115 [facility] MAIN Comment on above: Performed By: #### A DIFF, CBC, ANEU, GFR, BMP #### [address] [address] Potassium [Moles/Vol] 5.0 mmol/L Normal 3.5-5.0 [facility] Comment on above: Performed By: #### A DIFF, CBC, ANEU, GFR, BMP #### [address] [address] Sodium [Moles/Vol] 135 mmol/L Low 136-145 [facility] Comment on above: Performed By: #### A DIFF, CBC, ANEU, GFR, BMP #### [address] [address] Urea nitrogen [Mass/Vol] 34.0 mg/dL High 8.0-22.0 [facility] Comment on above: Performed By: #### A DIFF, CBC, ANEU, GFR, BMP #### [address] [address] CBCon 08-16-2024 Erythrocyte distribution width (RBC) [Ratio] 13.7 % Normal 11.5-15.5 [facility] Comment on above: Performed By: #### A DIFF, CBC, ANEU, GFR, BMP #### [address] [address] Hematocrit (Bld) [Volume fraction] 43.3 % Normal 34.0-46.0 [facility] Comment on above: Performed By: #### A DIFF, CBC, ANEU, GFR, BMP #### [address] [address] Hgb 13.9 G/dL Normal 12.0-16.0 [facility] Comment on above: Performed By: #### A DIFF, CBC, ANEU, GFR, BMP #### [address] [address] MCH (RBC) [Entitic mass] 30.0 pg Normal 27.0-33.0 [facility] Comment on above: Performed By: #### A DIFF, CBC, ANEU, GFR, BMP #### [address] [address] MCHC 32.1 G/dL Normal 32.0-36.0 [facility] Comment on above: Performed By: #### A DIFF, CBC, ANEU, GFR, BMP #### [address] [address] MCV (RBC) [Entitic vol] 93.6 fL Normal 80.0-99.0 [facility] Comment on above: Performed By: #### A DIFF, CBC, ANEU, GFR, BMP #### [place] [id number] Platelet 230 10 3/mcL Normal 150-450 [facility] Comment on above: Performed By: #### A DIFF, CBC, ANEU, GFR, BMP #### [place] [address] Platelet mean volume (Bld) [Entitic vol] 10.7 fL High 6.6-10.5 [facility] Comment on above: Performed By: #### A DIFF, CBC, ANEU, GFR, BMP #### [place] [id number] RBC 4.63 10 6/mcL Normal 4.10-5.30 [facility] Comment on above: Performed By: #### A DIFF, CBC, ANEU, GFR, BMP #### [place] [id number] WBC 12.7 10 3/mcL High 4.5-10.8 [facility] Comment on above: Performed By: #### A DIFF, CBC, ANEU, GFR, BMP #### [place] [id number] LABORATORYOrdered By: Marily Panda on 08-16-2024 Blood Glucose Interventions Administered agent to decrease blood sugar (08/16/24 12:23 PM) [facility] Work Phone: Blood Glucose Interventions Retest (08/16/24 10:15 AM) [facility] Work Phone: Bacteria identified Cx Nom ( Bld)on 08-15-2024 Bacteria identified Cx Nom (Unsp spec) NO GROWTH DAY 5 OF 5 [facility] CARDIAC RHYTHMon 08-15-2024 [facility] CBC,PLATELETSon 08-15-2024 Erythrocyte distribution width (RBC) [Ratio] 13.4 % 10.8 - 14.9 % [facility] Hematocrit (Bld) [Volume fraction] 43.8 % 34.9 - 44.3 % [facility] Hemoglobin (Bld) [Mass/Vol] 13.5 g/dL 11.4 - 15.2 g/dL [facility] Interpretation and review of laboratory results Abnormal [facility] MCH (RBC) [Entitic mass] 28.9 pg 25.9 - 33.9 pg [facility] MCHC (RBC) [Mass/Vol] 30.8 g/dL Low 31.4 - 35.9 g/dL [facility] MCV (RBC) [Entitic vol] 93.8 fL 79.6 - 97.7 fL [facility] Platelet mean volume (Bld) [Entitic vol] 12 fL 8.5 - 12.2 fL [facility] Platelets (Bld) [#/Vol] 252 10*3/uL 150 - 393 K/uL [facility] RBC (Bld) [#/Vol] 4.67 10*6/uL [facility] WBC (Bld) [#/Vol] 11.94 10*3/uL High 3.99 - 11.19 K/uL [facility] Hematocrit (Bld) [Volume fraction] 43.8 % Normal 34.9-44.3 [facility] Comment on above: Performed By: #### X M #### [facility] (DEFAULT) [address] [place] [address] Hemoglobin (Bld) [Mass/Vol] 13.5 g/dL Normal 11.4-15.2 [facility] Comment on above: Performed By: #### X M #### [facility] (DEFAULT) [address] [place] [address] MCV (RBC) [Entitic vol] 93.8 fL Normal 79.6-97.7 [facility] Comment on above: Performed By: #### X M #### [facility] (DEFAULT) [address] [place] [address] Mean Cell Hgb 28.9 pg Normal 25.9-33.9 [facility] Comment on above: Performed By: #### X M #### [facility] (DEFAULT) [address] [place] [address] Mean Cell Hgb Conc 30.8 g/dL Low 31.4-35.9 [facility] Comment on above: Performed By: #### X M #### [facility] (DEFAULT) [address] [place] [address] Platelet mean volume (Bld) [Entitic vol] 12.0 fL Normal 8.5-12.2 [facility] Comment on above: Performed By: #### X M #### [facility] (DEFAULT) [address] [place] [address] Platelets (Bld) [#/Vol] 252 10*3/uL Normal 150-393 [facility] Comment on above: Performed By: #### X M #### [facility] (DEFAULT) [address] [place] [address] RBC (Bld) [#/Vol] 4.67 10*6/uL Normal 3.91-5.04 [facility] Comment on above: Performed By: #### X M #### [facility] (DEFAULT) [address] [place] [address] RBC Distribution 13.4 % Normal 10.8-14.9 [facility] Comment on above: Performed By: #### X M #### [facility] (DEFAULT) [address] [place] [address] WBC (Bld) [#/Vol] 11.94 10*3/uL High 3.99-11.19 [facility] Comment on above: Performed By: #### X M #### [facility] (DEFAULT) [address] [place] [address] CHEM 7 (LYTES,BUN,CREA,GLUC) on 08-15-2024 Anion gap [Moles/Vol] 16 mmol/L 7 - 17 mmol/L [facility] Chloride [Moles/Vol] 99 mmol/L 98 - 10 8 mmol/L [facility] CO2 [Moles/Vol] 25 mmol/L 21 - 31 mmol/L [facility] Creatinine [Mass/Vol] 1.27 mg/dL High 0.50 - 1.20 mg/dL [facility] eGFR, CKD-EPI, Female 43 Low - PINF [facility] Glucose [Mass/Vol] 214 mg/dL High 70 - 179 mg/dL [facility] Interpretation and review of laboratory results Abnormal [facility] Osmolality Calc [Osmolality] 306 High [facility] Potassium [Moles/Vol] 4.8 mmol/L 3.5 - 5.0 mmol/L [facility] Sodium [Moles/Vol] 135 mmol/L 135 - 145 mmol/L [facility] Urea nitrogen [Mass/Vol] 51 mg/dL High 7 - 25 mg/dL [facility] Urea nitrogen/Creatinine [Mass ratio] 40 mg/mg [facility] Anion gap [Moles/Vol] 16 mmol/L Normal 7-17 [facility] Comment on above: Performed By: #### H [facility] #### [facility] (DEFAULT) [address] [place] [address] Chloride [Moles/Vol] 99 mmol/L Normal 98-108 [facility] Comment on above: Performed By: #### H EMOGC #### [facility] (DEFAULT) [address] [place] [address] CO2 [Moles/Vol] 25 mmol/L Normal 21-31 [facility] Comment on above: Performed By: #### H EMOGC #### [facility] (DEFAULT) [address] [place] [address] Creatinine [Mass/Vol] 1.27 mg/dL High 0.50-1.[address] [facility] Comment on above: Performed By: #### H EMOGC #### [facility] (DEFAULT) [address] [place] [address] GFR/1.73 sq M.predicted among non-blacks MDRD (S/P/Bld) [Vol rate/Area] 43 mL/min/{1.73_m2} Low >=60 [facility] Comment on above: Result Comment: Repo rted eGFR is based on the CKD-EPI 2020 equation using creatinine, age, and sex. Performed By: #### H EMOGC #### [facility] (DEFAULT) [address] [place] [address] Glucose [Mass/Vol] 214 mg/dL High Nonfastin -179 mg/dL; Fastin-99 [facility] Comment on above: Performed By: #### H EMOGC #### [facility] (DEFAULT) [address] [place] [address] Osmolality [Osmolality] 306 mosm/kg High 278-305 [facility] Comment on above: Performed By: #### H EMOGC #### [facility] (DEFAULT) [address] [place] [address] Potassium [Moles/Vol] 4.8 mmol/L Normal 3.5-5.[address] [facility] Comment on above: Performed By: #### H EMOGC #### [facility] (DEFAULT) [address] [place] [address] Sodium [Moles/Vol] 135 mmol/L Normal 135-145 [facility] Comment on above: Performed By: #### H EMO #### [facility] (DEFAULT) [address] [place] [address] Urea nitrogen [Mass/Vol] 51 mg/dL High 7-25 [facility] Comment on above: Performed By: #### H EMO #### [facility] (DEFAULT) [address] [place] [address] Urea nitrogen/Creatinine [Mass ratio] 40 mg/mg Normal [facility] Comment on above: Performed By: #### H EMO #### [facility] (DEFAULT) [address] [place] [address] GLUCOSE POCon 08-15-2024 Glucose [Mass/Vol] 190 mg/dL High 70 - 179 mg/dL [facility] Interpretation and review of laboratory results Abnormal [facility] POC Sample Type CAPBL [facility] Glucose [Mass/Vol] 146 mg/dL 70 - 179 mg/dL [facility] POC Sample Type CAPBL [facility] Glucose [Mass/Vol] 215 mg/dL High 70 - 179 mg/dL [facility] Interpretation and review of laboratory results Abnormal [facility] POC Sample Type CAPBL [facility] MAGNESIUMon 08-15-2024 Interpretation and review of laboratory results Normal [facility] Magnesium [Mass/Vol] 1.6 mg/dL 1.6 - 2 .6 mg/dL [facility] Magnesium [Mass/Vol] 1.6 mg/dL Normal 1.6-2.6 [facility] Comment on above: Performed By: #### H EMO #### [facility] (DEFAULT) [address] [place] [address] No Panel Informationon 08-15 [facility] CBC,PLATELETSon 08-14-2024 Erythrocyte distribution width (RBC) [Ratio] 13.4 % 10.8 - 14.9 % [facility] Hematocrit (Bld) [Volume fraction] 47.9 % High 34.9 - 44.3 % [facility] Hemoglobin (Bld) [Mass/Vol] 14.3 g/dL 11.4 - 15.2 g/dL [facility] Interpretation and review of laboratory results Abnormal [facility] MCH (RBC) [Entitic mass] 29.3 pg 25.9 - 33.9 pg [facility] MCHC (RBC) [Mass/Vol] 29.9 g/dL Low 31.4 - 35.9 g/dL [facility] MCV (RBC) [Entitic vol] 98.2 fL High 79.6 - 97.7 fL [facility] Platelet mean volume (Bld) [Entitic vol] 11.3 fL 8.5 - 12.2 fL [facility] Platelets (Bld) [#/Vol] 229 10*3/uL 150 - 393 K/uL [facility] RBC (Bld) [#/Vol] 4.88 10*6/uL [facility] WBC (Bld) [#/Vol] 12.14 10*3/uL High 3.99 - 11.19 K/uL [facility] Hematocrit (Bld) [Volume fraction] 47.9 % High 34.9-44.3 [facility] Comment on above: Performed By: #### X M #### [facility] (DEFAULT) [address] [address] Hemoglobin (Bld) [Mass/Vol] 14.3 g/dL Normal 11.4-15.2 [facility] Comment on above: Performed By: #### X M #### [facility] (DEFAULT) [address] [place] [address] MCV (RBC) [Entitic vol] 98.2 fL High 79.6-97.7 [facility] Comment on above: Performed By: #### X M #### [facility] (DEFAULT) [address] [place] [address] Mean Cell Hgb 29.3 pg Normal 25.9-33.9 [facility] Comment on above: Performed By: #### X M #### [facility] (DEFAULT) [address] [place] [address] Mean Cell Hgb Conc 29.9 g/dL Low 31.4-35.9 [facility] Comment on above: Performed By: #### X M #### [facility] (DEFAULT) [address] [address] Platelet mean volume (Bld) [Entitic vol] 11.3 fL Normal 8.5-12.2 [facility] Comment on above: Performed By: #### X M #### [facility] (DEFAULT) [address] [place] [address] Platelets (Bld) [#/Vol] 229 10*3/uL Normal 150-393 [facility] Comment on above: Performed By: #### X M #### [facility] (DEFAULT) [address] [address] RBC (Bld) [#/Vol] 4.88 10*6/uL Normal 3.91-5.04 [facility] Comment on above: Performed By: #### X M #### [facility] (DEFAULT) [address] [place] [address] RBC Distribution 13.4 % Normal 10.8-14.9 [facility] Comment on above: Performed By: #### X M #### [facility] (DEFAULT) [address] [address] WBC (Bld) [#/Vol] 12.14 10*3/uL High 3.99-11.19 [facility] Comment on above: Performed By: #### X M #### [facility] (DEFAULT) [address] [place] [address] CHEM 7 (LYTES,BUN,CREA,GLUC) on 08-14-2024 Anion gap [Moles/Vol] 16 mmol/L 7 - 17 mmol/L [facility] Chloride [Moles/Vol] 101 mmol/L 98 - 10 8 mmol/L [facility] CO2 [Moles/Vol] 23 mmol/L 21 - 31 mmol/L [facility] Creatinine [Mass/Vol] 1.15 mg/dL 0.50 - 1.20 mg/dL [facility] eGFR, CKD-EPI, Female 48 Low - PINF [facility] Glucose [Mass/Vol] 208 mg/dL High 70 - 179 mg/dL [facility] Interpretation and review of laboratory results Abnormal [facility] Osmolality Calc [Osmolality] 304 [facility] Potassium [Moles/Vol] 4.7 mmol/L 3.5 - 5.0 mmol/L [facility] Sodium [Moles/Vol] 135 mmol/L 135 - 145 mmol/L [facility] Urea nitrogen [Mass/Vol] 47 mg/dL High 7 - 25 mg/dL [facility] Urea nitrogen/Creatinine [Mass ratio] 41 mg/mg [facility] Anion gap [Moles/Vol] 16 mmol/L Normal 7-17 [facility] Comment on above: Performed By: #### B LDCULT #### [facility] (DEFAULT) [address] [place] [address] Chloride [Moles/Vol] 101 mmol/L Normal 98-108 [facility] Comment on above: Performed By: #### B LDCULT #### [facility] (DEFAULT) [address] [place] [address] CO2 [Moles/Vol] 23 mmol/L Normal 21-31 [facility] Comment on above: Performed By: #### B LDCULT #### [facility] (DEFAULT) [address] [place] [address] Creatinine [Mass/Vol] 1.15 mg/dL Normal 0.50-1.[address] [facility] Comment on above: Performed By: #### B LDCULT #### [facility] (DEFAULT) [address] [place] [address] GFR/1.73 sq M.predicted among non-blacks MDRD (S/P/Bld) [Vol rate/Area] 48 mL/min/{1.73_m2} Low >=60 [facility] Comment on above: Result Comment: Repo rted eGFR is based on the CKD-EPI 2020 equation using creatinine, age, and sex. Performed By: #### B LDCULT #### [facility] (DEFAULT) [address] [place] [address] Glucose [Mass/Vol] 208 mg/dL High Nonfastin -179 mg/dL; Fastin-99 [facility] Comment on above: Performed By: #### B LDCULT #### [facility] (DEFAULT) [address] [place] [address] Osmolality [Osmolality] 304 mosm/kg Normal 278-305 [facility] Comment on above: Performed By: #### B LDCULT #### [facility] (DEFAULT) [address] [place] [address] Potassium [Moles/Vol] 4.7 mmol/L Normal 3.5-5.[address] [facility] Comment on above: Performed By: #### B LDCULT #### [facility] (DEFAULT) [address] [place] [address] Sodium [Moles/Vol] 135 mmol/L Normal 135-145 [facility] Comment on above: Performed By: #### B LDCULT #### [facility] (DEFAULT) [address] [place] [address] Urea nitrogen [Mass/Vol] 47 mg/dL High 7-25 [facility] Comment on above: Performed By: #### B LDCULT #### [facility] (DEFAULT) [address] [place] [address] Urea nitrogen/Creatinine [Mass ratio] 41 mg/mg Normal [facility] Comment on above: Performed By: #### B LDCULT #### [facility] (DEFAULT) [address] [place] [address] GLUCOSE POCon 08-14-2024 Glucose [Mass/Vol] 204 mg/dL High 70 - 179 mg/dL [facility] Interpretation and review of laboratory results Abnormal [facility] POC Sample Type CAPBL [facility] Glucose [Mass/Vol] 264 mg/dL High 70 - 179 mg/dL [facility] Interpretation and review of laboratory results Abnormal [facility] POC Sample Type CAPBL [facility] Glucose [Mass/Vol] 189 mg/dL High 70 - 179 mg/dL [facility] Interpretation and review of laboratory results Abnormal [facility] POC Sample Type CAPBL [facility] MAGNESIUMon 08-14-2024 Interpretation and review of laboratory results Normal [facility] Magnesium [Mass/Vol] 1.6 mg/dL 1.6 - 2 .6 mg/dL [facility] Magnesium [Mass/Vol] 1.6 mg/dL Normal 1.6-2.6 [facility] Comment on above: Performed By: #### B LDCULT #### [facility] (DEFAULT) [address] [place] [address] No Panel Informationon 08-14 [facility] CBC,PLATELETSon 08-13-2024 Erythrocyte distribution width (RBC) [Ratio] 13.4 % 10.8 - 14.9 % [facility] Hematocrit (Bld) [Volume fraction] 45.7 % High 34.9 - 44.3 % [facility] Hemoglobin (Bld) [Mass/Vol] 14.3 g/dL 11.4 - 15.2 g/dL [facility] Interpretation and review of laboratory results Abnormal [facility] MCH (RBC) [Entitic mass] 29.5 pg 25.9 - 33.9 pg [facility] MCHC (RBC) [Mass/Vol] 31.3 g/dL Low 31.4 - 35.9 g/dL [facility] MCV (RBC) [Entitic vol] 94.2 fL 79.6 - 97.7 fL [facility] Platelet mean volume (Bld) [Entitic vol] 11.7 fL 8.5 - 12.2 fL [facility] Platelets (Bld) [#/Vol] 245 10*3/uL 150 - 393 K/uL [facility] RBC (Bld) [#/Vol] 4.85 10*6/uL [facility] WBC (Bld) [#/Vol] 12.02 10*3/uL High 3.99 - 11.19 K/uL [facility] Hematocrit (Bld) [Volume fraction] 45.7 % High 34.9-44.3 [facility] Comment on above: Performed By: #### [facility] #### [facility] (DEFAULT) [address] [address] Hemoglobin (Bld) [Mass/Vol] 14.3 g/dL Normal 11.4-15.2 [facility] Comment on above: Performed By: #### [facility] #### [facility] (DEFAULT) [address] [place] [address] MCV (RBC) [Entitic vol] 94.2 fL Normal 79.6-97.7 [facility] Comment on above: Performed By: #### H [facility] #### [facility] (DEFAULT) [address] [address] Mean Cell Hgb 29.5 pg Normal 25.9-33.9 [facility] Comment on above: Performed By: #### H EMO #### [facility] (DEFAULT) [address] [place] [address] Mean Cell Hgb Conc 31.3 g/dL Low 31.4-35.9 [facility] Comment on above: Performed By: #### H EMOGC #### [facility] (DEFAULT) [address] [place] [address] Platelet mean volume (Bld) [Entitic vol] 11.7 fL Normal 8.5-12.2 [facility] Comment on above: Performed By: #### H EMOGC #### [facility] (DEFAULT) [address] [place] [address] Platelets (Bld) [#/Vol] 245 10*3/uL Normal 150-393 [facility] Comment on above: Performed By: #### H EMOGC #### [facility] (DEFAULT) [address] [place] [address] RBC (Bld) [#/Vol] 4.85 10*6/uL Normal 3.91-5.04 [facility] Comment on above: Performed By: #### H EMOGC #### [facility] (DEFAULT) [address] [place] [address] RBC Distribution 13.4 % Normal 10.8-14.9 [facility] Comment on above: Performed By: #### H EMOGC #### [facility] (DEFAULT) [address] [place] [address] WBC (Bld) [#/Vol] 12.02 10*3/uL High 3.99-11.19 [facility] Comment on above: Performed By: #### H EMOGC #### [facility] (DEFAULT) [address] [address] CHEM 7 (LYTES,BUN,CREA,GLUC) on 08-13-2024 Anion gap [Moles/Vol] 15 mmol/L 7 - 17 mmol/L [facility] Chloride [Moles/Vol] 104 mmol/L 98 - 10 8 mmol/L [facility] CO2 [Moles/Vol] 23 mmol/L 21 - 31 mmol/L [facility] Creatinine [Mass/Vol] 1.18 mg/dL 0.50 - 1.20 mg/dL [facility] eGFR, CKD-EPI, Female 47 Low - PINF [facility] Glucose [Mass/Vol] 225 mg/dL High 70 - 179 mg/dL [facility] Interpretation and review of laboratory results Abnormal [facility] Osmolality Calc [Osmolality] 311 High [facility] Potassium [Moles/Vol] 4.6 mmol/L 3.5 - 5.0 mmol/L [facility] Sodium [Moles/Vol] 137 mmol/L 135 - 145 mmol/L [facility] Urea nitrogen [Mass/Vol] 55 mg/dL High 7 - 25 mg/dL [facility] Urea nitrogen/Creatinine [Mass ratio] 47 mg/mg [facility] Anion gap [Moles/Vol] 15 mmol/L Normal 7-[address] [facility] Comment on above: Performed By: #### [facility] #### [facility] (DEFAULT) [address] [place] [address] Chloride [Moles/Vol] 104 mmol/L Normal 98-108 [facility] Comment on above: Performed By: #### [facility] #### [facility] (DEFAULT) [address] [place] [address] CO2 [Moles/Vol] 23 mmol/L Normal 21-31 [facility] Comment on above: Performed By: #### [facility] #### [facility] (DEFAULT) [address] [place] [address] Creatinine [Mass/Vol] 1.18 mg/dL Normal 0.50-1.[address] [facility] Comment on above: Performed By: #### H EMO #### [facility] (DEFAULT) [address] [place] [address] GFR/1.73 sq M.predicted among non-blacks MDRD (S/P/Bld) [Vol rate/Area] 47 mL/min/{1.73_m2} Low >=60 [facility] Comment on above: Result Comment: Repo rted eGFR is based on the CKD-EPI 2020 equation using creatinine, age, and sex. Performed By: #### H EMOGC #### [facility] (DEFAULT) [address] [place] [address] Glucose [Mass/Vol] 225 mg/dL High Nonfastin -179 mg/dL; Fastin-99 [facility] Comment on above: Performed By: #### H EMOGC #### [facility] (DEFAULT) [address] [place] [address] Osmolality [Osmolality] 311 mosm/kg High 278-305 [facility] Comment on above: Performed By: #### H EMO #### [facility] (DEFAULT) [address] [place] [address] Potassium [Moles/Vol] 4.6 mmol/L Normal 3.5-5.[address] [facility] Comment on above: Performed By: #### H EMO #### [facility] (DEFAULT) [address] [place] [address] Sodium [Moles/Vol] 137 mmol/L Normal 135-145 [facility] Comment on above: Performed By: #### H EMOGC #### [facility] (DEFAULT) [address] [place] [address] Urea nitrogen [Mass/Vol] 55 mg/dL High 7-25 [facility] Comment on above: Performed By: #### H EMOGC #### [facility] (DEFAULT) [address] [place] [address] Urea nitrogen/Creatinine [Mass ratio] 47 mg/mg Normal [facility] Comment on above: Performed By: #### H EMOGC #### [facility] (DEFAULT) [address] [place] [address] GLUCOSE POCon 08-13-2024 Glucose [Mass/Vol] 195 mg/dL High 70 - 179 mg/dL [facility] Interpretation and review of laboratory results Abnormal [facility] POC Sample Type CAPBL [facility] Glucose [Mass/Vol] 198 mg/dL High 70 - 179 mg/dL [facility] Interpretation and review of laboratory results Abnormal [facility] POC Sample Type CAPBL [facility] Glucose [Mass/Vol] 158 mg/dL 70 - 179 mg/dL [facility] POC Sample Type CAPBL [facility] Glucose [Mass/Vol] 211 mg/dL High 70 - 179 mg/dL [facility] Interpretation and review of laboratory results Abnormal [facility] POC Sample Type CAPBL [facility] Glucose [Mass/Vol] 240 mg/dL High 70 - 179 mg/dL [facility] Interpretation and review of laboratory results Abnormal [facility] POC Sample Type CAPBL [facility] MAGNESIUMon 08-13-2024 Interpretation and review of laboratory results Normal [facility] Magnesium [Mass/Vol] 1.8 mg/dL 1.6 - 2 .6 mg/dL [facility] Magnesium [Mass/Vol] 1.8 mg/dL Normal 1.6-2.6 [facility] Comment on above: Performed By: #### [facility] #### [facility] (DEFAULT) [address] [place] [address] No Panel Informationon 08-13 [facility] CBC,PLATELETSon 08-12-2024 Erythrocyte distribution width (RBC) [Ratio] 13.6 % 10.8 - 14.9 % [facility] Hematocrit (Bld) [Volume fraction] 45.1 % High 34.9 - 44.3 % [facility] Hemoglobin (Bld) [Mass/Vol] 14.3 g/dL 11.4 - 15.2 g/dL [facility] Interpretation and review of laboratory results Abnormal [facility] MCH (RBC) [Entitic mass] 29.7 pg 25.9 - 33.9 pg [facility] MCHC (RBC) [Mass/Vol] 31.7 g/dL 31.4 - 35.9 g/dL [facility] MCV (RBC) [Entitic vol] 93.6 fL 79.6 - 97.7 fL [facility] Platelet mean volume (Bld) [Entitic vol] 11.4 fL 8.5 - 12.2 fL [facility] Platelets (Bld) [#/Vol] 241 10*3/uL 150 - 393 K/uL [facility] RBC (Bld) [#/Vol] 4.82 10*6/uL [facility] WBC (Bld) [#/Vol] 14.32 10*3/uL High 3.99 - 11.19 K/uL [facility] Hematocrit (Bld) [Volume fraction] 45.1 % High 34.9-44.3 [facility] Comment on above: Performed By: #### [facility] #### [facility] (DEFAULT) [address] [place] [address] Hemoglobin (Bld) [Mass/Vol] 14.3 g/dL Normal 11.4-15.2 [facility] Comment on above: Performed By: #### [facility] #### [facility] (DEFAULT) [address] [place] [address] MCV (RBC) [Entitic vol] 93.6 fL Normal 79.6-97.7 [facility] Comment on above: Performed By: #### [facility] #### [facility] (DEFAULT) [address] [place] [address] Mean Cell Hgb 29.7 pg Normal 25.9-33.9 [facility] Comment on above: Performed By: #### H EMOGC #### [facility] (DEFAULT) [address] [address] Mean Cell Hgb Conc 31.7 g/dL Normal 31.4-35.9 [facility] Comment on above: Performed By: #### H EMOGC #### [facility] (DEFAULT) [address] [address] Platelet mean volume (Bld) [Entitic vol] 11.4 fL Normal 8.5-12.2 [facility] Comment on above: Performed By: #### H EMOGC #### [facility] (DEFAULT) [address] [address] Platelets (Bld) [#/Vol] 241 10*3/uL Normal 150-393 [facility] Comment on above: Performed By: #### H EMO #### [facility] (DEFAULT) [address] [address] RBC (Bld) [#/Vol] 4.82 10*6/uL Normal 3.91-5.04 [facility] Comment on above: Performed By: #### H EMOGC #### [facility] (DEFAULT) [address] [address] RBC Distribution 13.6 % Normal 10.8-14.9 [facility] Comment on above: Performed By: #### H EMOGC #### [facility] (DEFAULT) [address] [address] WBC (Bld) [#/Vol] 14.32 10*3/uL High 3.99-11.19 [facility] Comment on above: Performed By: #### H EMOGC #### [facility] (DEFAULT) [address] [address] CHEM 7 (LYTES,BUN,CREA,GLUC) on 08-12-2024 Anion gap [Moles/Vol] 15 mmol/L 7 - 17 mmol/L [facility] Chloride [Moles/Vol] 104 mmol/L 98 - 10 8 mmol/L [facility] CO2 [Moles/Vol] 27 mmol/L 21 - 31 mmol/L [facility] Creatinine [Mass/Vol] 1.36 mg/dL High 0.50 - 1.20 mg/dL [facility] eGFR, CKD-EPI, Female 40 Low - PINF [facility] Glucose [Mass/Vol] 126 mg/dL 70 - 179 mg/dL [facility] Interpretation and review of laboratory results Abnormal [facility] Osmolality Calc [Osmolality] 313 High [facility] Potassium [Moles/Vol] 4.5 mmol/L 3.5 - 5.0 mmol/L [facility] Sodium [Moles/Vol] 141 mmol/L 135 - 145 mmol/L [facility] Urea nitrogen [Mass/Vol] 56 mg/dL High 7 - 25 mg/dL [facility] Urea nitrogen/Creatinine [Mass ratio] 41 mg/mg [facility] Anion gap [Moles/Vol] 15 mmol/L Normal 7-[address] [facility] Comment on above: Performed By: #### T YPEC #### [facility] (DEFAULT) [address] [address] Chloride [Moles/Vol] 104 mmol/L Normal 98-108 [facility] Comment on above: Performed By: #### T YPEC #### [facility] (DEFAULT) [address] [address] CO2 [Moles/Vol] 27 mmol/L Normal 21-31 [facility] Comment on above: Performed By: #### T YPEC #### [facility] (DEFAULT) [address] [address] Creatinine [Mass/Vol] 1.36 mg/dL High 0.50-1.[address] [facility] Comment on above: Performed By: #### T YPEC #### [facility] (DEFAULT) [address] [place] [address] GFR/1.73 sq M.predicted among non-blacks MDRD (S/P/Bld) [Vol rate/Area] 40 mL/min/{1.73_m2} Low >=60 [facility] Comment on above: Result Comment: Repo rted eGFR is based on the CKD-EPI 2020 equation using creatinine, age, and sex. Performed By: #### T YPEC #### [facility] (DEFAULT) [address] [place] [address] Glucose [Mass/Vol] 126 mg/dL Normal Nonfastin -179 mg/dL; Fastin-99 [facility] Comment on above: Performed By: #### T YPEC #### [facility] (DEFAULT) [address] [address] Osmolality [Osmolality] 313 mosm/kg High 278-305 [facility] Comment on above: Performed By: #### T YPEC #### [facility] (DEFAULT) [address] [address] Potassium [Moles/Vol] 4.5 mmol/L Normal 3.5-5.[address] [facility] Comment on above: Performed By: #### T YPEC #### [facility] (DEFAULT) [address] [place] [address] Sodium [Moles/Vol] 141 mmol/L Normal 135-145 [facility] Comment on above: Performed By: #### T YPEC #### [facility] (DEFAULT) [address] [address] Urea nitrogen [Mass/Vol] 56 mg/dL High 7-25 [facility] Comment on above: Performed By: #### T YPEC #### [facility] (DEFAULT) [address] [address] Urea nitrogen/Creatinine [Mass ratio] 41 mg/mg Normal [facility] Comment on above: Performed By: #### T YPEC #### [facility] (DEFAULT) [address] [address] GLUCOSE POCon 08-12-2024 Glucose [Mass/Vol] 231 mg/dL High 70 - 179 mg/dL [facility] Interpretation and review of laboratory results Abnormal [facility] POC Sample Type CAPBL [facility] Glucose [Mass/Vol] 208 mg/dL High 70 - 179 mg/dL [facility] Interpretation and review of laboratory results Abnormal [facility] POC Sample Type CAPBL [facility] Glucose [Mass/Vol] 160 mg/dL 70 - 179 mg/dL [facility] POC Sample Type CAPBL [facility] Glucose [Mass/Vol] 107 mg/dL 70 - 179 mg/dL [facility] POC Sample Type CAPBL [facility] MAGNESIUMon 08-12-2024 Interpretation and review of laboratory results Normal [facility] Magnesium [Mass/Vol] 2.2 mg/dL 1.6 - 2 .6 mg/dL [facility] Magnesium [Mass/Vol] 2.2 mg/dL Normal 1.6-2.6 [facility] Comment on above: Performed By: #### T YPEC #### [facility] (DEFAULT) [address] [address] No Panel Informationon 08-12 [facility] SURG PATH REQUESTOrdered By: Renae Glez on 08-12-2024 Case Report [facility] Clinical History l5gvhTToLMSwwLLkHYIu NVx opdRcMOWsvNTyM2ZpehpuIS itWJ0xJR0jxEetnHRnhMCoW MMrDwKib4poe133fLBss6ol LTHBqdbjyFw2jJrpH69bw1P 2KvteX4zbUXUtZRnaIGKaJL idsKYtDUy7ZVBvdROmghXnU tPyJCAjfYSkjQD4BWRjXX3j naiwETvwTUxhQRPxpeV2UDD gcRFdW1XbHCZkIB5swayrCV I6LJgzVTTvXRU8YsLpPIBod 4Agrll0RiMgpXl6z8ynYYLd IRMgzOttd8etOCR6ASCuhJQ oL2jjdN5eOXPwLY9jtznyp2 dmLGyvAOqeZEAkiJO6nyO2F IUyzORqM0AwuW1iEWUfAZCc rvJvnChdqJ7wLrMlQFfmEcG hKp0RPKpNPmVvJXXms7IbOA TkTEWVtUVupy7ujIT9SIOBv 53dHfQzUIBpoGViuVRMiTY5 t1K7PkNbJp5jkLNmrLRkyGQ fpCK4d0Q8UTNgt5RyBIVaVx xwYXJ9 [facility] For Immediate Release to Patient's MyChart? Yes Yes [facility] Gross Description y3kpxXGbRGLaw4vzJQRu bGF uZzEwMzNcZnRuYmpcdWMxIH tccnRmMVxlcGljMTExMDVcY A9waDcyaSo2gDxmVMWqrtO1 xHIjVIlsk0wyZMO0o9avecn vZIYzCSxuSh9clSGiyFunNj KhYKWuYAg1cY18UEMqoI2pc RDpIYddmfQpNBRrW2IvJK0x PUfmnOOvRKE9vIajPPXkmep nHfL0KUizFCQtvrvaLGs1OW avAWGruHM0VJDgbSWpI2MdB WZdPJ5hwuy2CTA3OSkuSBFt NyA2EMHeaFKpGJLqxZdkOKq rz897DQN0WwUgMLQfuxObaT bgvX0uJhSdHKMUcEDuz2XbF 5fnJF7oxBAugxIyMKd7WHZv jO0dx70wXNOyj8Fthak1RSl iWpFsHHYeT02eqVHtsiAgAK dpdGggdGhlIHBhdGllbnQnc oRjNO8pAURkTOPnN3Pyn8Cv q89oiiSzIqLaSuRneQItYAY ufrgnPqCpYSfrHtTpAye2VN IgVGhlIHNwZWNpbWVuIGlzI XKur7iwegA0EPQyAogke2Qv gWMxPJDuwhTraGRqBS0yCCM xgfBrd6LvJN2rBULbsdXpAj JwY45liaMuQV0eNRHwdj5ac N1cBLThIvOxrPcno2VwOJRy dv7hAPDxPeJ9iCM8frWuPmF rQ89ihK0rV0TkSDHre5FtCZ zcJN1oaB2lYpKjICRrPIXaf VIhDSSkgjSHGLCpVCMyDG9b fZi8SBnsLfsHKZnuUtLcYBA 1NIYjty11LKW2AdLua5X5PO FtShDuBMGlFZ0bzRegTZFjG L6hBZDoD6djkY4mwfi3LoTd MKHtQxN3CQNhzaS5Kjh2PLD pQMgci6ocx8QdTJWjTKb6dK uzOdImQCEoq5slvhBwMjIvP JDqLJEkJNKxqCUdS476g9mg y9vgoxApbVX5IDXuVDF8EVg lhqVgvwW6GPgmdNDjGrN2UO iosqUtQAlvinVifrQtDim4K TTsP489UID7yDxoq1qpXTY6 DXEqDSBqKeOlFv2kaTTwX93 1DVAdVSUCMEUjbDm5MOLajt VnwaOaeHQLj306X147p4yrJ PCbdxZbqQiNkqszv4uaR987 XHBhcGVydzEyMjQwXHBhcGV oyYO8WMTsCH3ozpbsXZgmAI sxHNSbjwT5DIBcmMJrB4ViN NIpSF6nwvlqOPK8TGbbRDMn GBT1CyQmQCJxu0Fooza2LaW jjd1mfb38RXB3l1PkgHhnAT P3KXG2HoXhZc4doNYeFZDdR P8bLaXimCLtZPStpx58sRik DStakdQqrC9aRpObEBIdyHE uRZCmPZ7iwBZwLWOybE2arx xjXHBnYnJkcmhlYWRccGdic mUnBz9emGbtEYB1QCxsL6tv nV9bQoN7APfvT4lmbH0wCEt 1TJtgsJN5ULWvwX9cSP6xor dtg2fcQEduRBhtYFVenmD0s oX1NZHnuIApQ3YmoI5kJSIx WW5ejoold1rhOTW2KUkkGQH gSWM0XhPjPLBig4Zrzmf9Tm Cnn2FjeFBoZQbzE09gv786N FRdfnPmM8stpICdmnpjlSTu cxguXLqfqxV0OVOrPKDlJRr uXGYxXGZzMjJcbGFuZzEwMz NcaGljaFxmMVxkYmNoXGYxX ZsbZ3qeZrJmYqAuRaAEws8v m8CmMRZbvnP3aVtkIJCak3S op1MgIqLZXMLxP0NxLW7ypI HdQAYgvr63 [facility] Microscopic Description t3shqSGnDHQhiOFm ZjIyMDA sBIVmj6nlHNFvuCNbTzXnXk NcZnRuYmpcdWMxXGRlZmYwe 2lnm526nTWuk7ocKRPxYsH4 iLCdGDEkvSIyC591ASLnYWc br9abr6PaHGPntRKkw9G6XR JTzywyiUi8cQedC43gg3T9V jzxH7dnEGZfTKHdR2YmNU5x BARhNen1EGC3IJB8TBKnKFV aW0ExMI8oGXVsjJWeNVa6w8 uwcFcfFGBwRFK1z4hmIIoyu tMcHF4viw2sbNo7f6brcoCq ZQXxONZlmCNWDAWtO5QljRx vJw1hjGu2eNkrAmngWAM8Uh q8UN1neh11eom7gWyyAIXau wwmZrM2WLnfJTMbluqiWXg8 OWvdUOChkMK5IGFrzIQqC9N wYMBjZY8hvzk9DRP9ZXgiOL LoDbZ3UWAvoARdGYPsfOdvT Exby506LNT4HqCwBS0uX6Nt l5T2kH3phWGbZWAiaUKvMuE pYNGfyx8naNPsPZwvl3LhSW B5jgO9sFXayUArIIJsSI67S cfix2QmClomOBV6EIXqdcVg c7Vom2jsRwGthmHzK0wyG7F yZHJoZWFkXHBnYnJkcmZvb3 Rss6JyqATemNf9l9mrPHIbX AGriDomc3bzNGZ5MNHqI2A3 vCNyt0yaOQpuKOGadOR1hxO 6UQGvyBHzR5QznJ6fCUCtVA 0qouw7j0xxVEI0EDhhIQIoW dZ8cpT7LEDpvBQxIEPftFbh NOreo676TTB5AfGbJYQjy0S mH3SqlVrkN72xoIwrF32dGY StjQvqwR6ukHnjiH9uHyXhD nMyNFxxbFxwbGFpblxmMVxm sfUuBIsrqhmvJGPfVIxaS2s qPdAoYKAwdPopHPrrl9IuMB ZiLULsMfEsGPEsbNPaz8Yxu 5EaXsXuiFHfeZ6bdIsmhxP3 OVAsyBIgNp6pbKLyPoItxPY yfQ== [facility] Pathologic Diagnosis p2shmXDpQYDwxRKqPJE wNVx tzbMaHEFejKOjL8PlwbuhUG uaUR2gWG5crKlypGFygUTeC KUaFoAjm6bxf121fMKfi7ma CQWKgxzanBt1d8nzLEKTbU6 ft5o4rM07EIUzpB9dfTVuKQ djzpZtZQpigtFqmgGlLtx5F IL6mAblGfygzGO2hKYlhFS9 QXwtj6PkgBbfqCxeVVBvGGP rHAV6G0vduGO5qTAtxUyrmE NzQH2jt4nzcKN4xiFcRQB2d TvsrOV3sSsqwyirr8lqvLY2 oZI3KVwulTS4CYbsFySgI0k nNDTsdW3cH27yE6mdAZDynO imCRdsJVQzvDH0SRK8UEWdm 1xsZXZlbHRleHRcJzAxXCdi Oxf4l2vcYHFgnW66mBNdnkR 7fVxmMVxmczIwXGxpMzYwXG ZpMTgwfXtcbGlzdGxldmVsX DishxEponKwDfCmkPQ2DOih GdWxIcPpwRP7RDgaChAhaHS 6ZIqfmISieZY5FVqtoYH6LX y0SEs6MLgiOUjbKyy3cExjv AY7NPdsmP0fNEHnM91yTsMg TwQkJU14BVjdi0FbRGTdnHs uMDMqsY1iLmZcJImnnpLybs ZjbjIzXGxldmVsamMwXGxld kYxd1ZthwKaxKC3XCvjecTw sBY4xRdmGDJkN4K0Z815SWl bvnTgyySpLqOsdyt3XZPtKT UtGtX3z4oqeMH7qOE2XCoee RA0BBwfPuMyX0sjZEKqkJ1b J79iS0zrERWbyEpbRQsuVZA pgEZ4DUT5EJDdq8qvRJKgmZ XqwRBwAaLqAMryIec8f5vbH WWqyT72jEWpooT7uOhaGIol czIwfXtcbGlzdGxldmVsXGx onaTlydXiGjVyaWO4PRicEj CfBiMtbNV9HAcgEvLskEN8O AfjxREtxIJ5IPdovJB5WDj7 TFp5ZSmfMWncTjh6pGwflVE 1MXxvdC5ePYXiT78vNwMmQm NaYW19PInra8NxSUFwgRctV CDrsJ1fMlXlAMglfiPpouMl bjIzXGxldmVsamMwXGxldmV yj1VjbmFtlLN2LMyeozKyiO H0rNbhBRKrW1P2T676LAkbp mJyseSnQqIddxs9VZJwBXJp SzA7w4chaLX0uKL0WHlpiPK 2ZVskEiCyY2koKWJzxD9tV5 9jI8vfHPUgqVdyQYvsCGGlr JV8JPP0KOFkg1oiULWbuNNz lOKfBhPgORldYmd6p2prKPA ixT28gDDmfjW4wIddIUikpt IwfXtcbGlzdGxldmVsXGxld hCgbhCfDcReqDZ6NOcqDbOa YjRsiFF5XMqzVmNnyXV1AVw zwJZotCO9UPrvxCE4YHn5DC j3ZPogGFmlPhm8aYubrZD9C GrrwR5sQYPsA41fLkYoNlJt DK69PRjvl3WuQUEjtNovKZP lhS4qDdRcYBckevAmqaYxyr IzXGxldmVsamMwXGxldmVsc 1PsvfUkaZC6RMwpwnBqxYN9 eJutEKDuV0G3C385AWmaxeB pchFzJiGtidw4HVLnOXKkBs A0fF94GKfclRgrbU74EFXry MDvjDVfpSE2MMyjyHeluQ10 BODzaUZeJGqco4PwSAPdRpJ 7XcTuCDEnoFqawN92WUSadU RfK400lbVeCEepIJ07GXQhd GVydzEyMjQwXHBhcGVyaDE1 XATlBE6pscauGUcgXNmzPRH ikkI6DLAlkQJoU1EwEZTkDN 0outqeQAE2KYnoNNZcCMZ8A bOwLZMjd4Qlpnl8SfUmkQWv VIxioJUmctsmXTWmMhOgE9O mCZHpTET6r99gJ4qeITStw1 BzeTpccGFyXGxpMzYwXGZpM IpkNIrnceF6ITxegtItgZu0 hUWuuJdlwX8sBginntKdTIF lXKVWg7PdtXRutx9ekF8cBH NeetEWogMSBUaeS18xJSJ0Q XTvuUfmo4QtQBssPR77tUXf ZWRccGFyfQ== [facility] Professional Interpretation Performed at: h9ptzNDhZYFucGKqJvJmLAD cCYRtf0xuJFIjcFAxIhIlQt NcZnRuYmpcdWMxXGRlZmYwe 3rkf067lJQkq8kjECAlHmB5 gDPlBIZnoBLkS592VUBtVVy il7wbz3ExHNXypZTle0V5MX SUogcctBz0pAhdX20hr6B1Y ewmM6rpSUPtZWOlO5KuLN5i DNUmTyg4KCJ5FRC4CJQwEUA yT0JqPL2eOCOnbTPrAFj2i4 ddiHvcHZOwMOF3l3poRFcer aEeJW0spc0ccLc2w1gwecNa KWXeYQXvhNOUETWvB3QdzPr yIg2apRa6xEajVegzAGB4Yh a1BD2clg61gzy1mFvaIOHvv klaZmO7OTinHANngnrzJVr0 WJuxMKEqjBB3PIUgtWRdT6K hGSUyKR1sbyb9FAZ1ZJawZR FcMoH6RPIobGPgYFMkuZziX Gijv909LGM4MuGnER2kI9Yw y0V6zN0muMCeCAJerBSkBjE zSWEpyd3fwNTiIXsas5QyBS I2azK9xEEhnTAcFKQrMR22H vcku0KeCnzdUMZ3IKYmepVx z5Bdq2bhFoGximNrO4uyB1R yZHJoZWFkXHBnYnJkcmZvb3 Uzk3YlmKWkhUv2c7xiIVFtM UTpzMtzw3mfLVZ7UOBcO0X1 yZZfo5snKXrrPXWvqQE8idJ 9PFYzbBOvZ3AxgF4qVEGbAR 8mmrf3k9noAHY0CNksIPLbF rB7xpQ1RQLhaXYrVQYaoBzi RYyrj318KZQ5InKoFQNat1U pY8QzmCyqH90owDtlT10tTE IbkDwdpE3bhRzexX1hHzZiS nMyNFxwYXJkXHBsYWluXGYx XGZzMjJcbGFuZzEwMzNcaGl jaFxmMVxkYmNoXGYxXGxvY2 elBpBzTyStUiQAE4MhS6WTQ uZVTS2OEReRAHihQ1BHPBZE YNUEOE9TJ6KXJLhFCk3TPRN IZubedQPoNKVcLLNWCDF5RJ FhcRlgWQWfHAQjmzTNf8g8r HY0sleiD9bfvvW2OvDyLUvp YXJ9 [facility] CBC,PLATELETSon 08-11-2024 Erythrocyte distribution width (RBC) [Ratio] 13.7 % 10.8 - 14.9 % [facility] Hematocrit (Bld) [Volume fraction] 43.2 % 34.9 - 44.3 % [facility] Hemoglobin (Bld) [Mass/Vol] 14 g/dL 11.4 - 15.2 g/dL [facility] Interpretation and review of laboratory results Abnormal [facility] MCH (RBC) [Entitic mass] 29.9 pg 25.9 - 33.9 pg [facility] MCHC (RBC) [Mass/Vol] 32.4 g/dL 31.4 - 35.9 g/dL [facility] MCV (RBC) [Entitic vol] 92.1 fL 79.6 - 97.7 fL [facility] Platelet mean volume (Bld) [Entitic vol] 11.5 fL 8.5 - 12.2 fL [facility] Platelets (Bld) [#/Vol] 240 10*3/uL 150 - 393 K/uL [facility] RBC (Bld) [#/Vol] 4.69 10*6/uL [facility] WBC (Bld) [#/Vol] 11.76 10*3/uL High 3.99 - 11.19 K/uL [facility] Hematocrit (Bld) [Volume fraction] 43.2 % Normal 34.9-44.3 [facility] Comment on above: Performed By: #### T YPEC #### [facility] (DEFAULT) [address] [address] Hemoglobin (Bld) [Mass/Vol] 14.0 g/dL Normal 11.4-15.2 [facility] Comment on above: Performed By: #### T YPEC #### [facility] (DEFAULT) [address] [address] MCV (RBC) [Entitic vol] 92.1 fL Normal 79.6-97.7 [facility] Comment on above: Performed By: #### T YPEC #### [facility] (DEFAULT) [address] [address] Mean Cell Hgb 29.9 pg Normal 25.9-33.9 [facility] Comment on above: Performed By: #### T YPEC #### [facility] (DEFAULT) [address] [address] Mean Cell Hgb Conc 32.4 g/dL Normal 31.4-35.9 [facility] Comment on above: Performed By: #### T YPEC #### [facility] (DEFAULT) [address] [address] Platelet mean volume (Bld) [Entitic vol] 11.5 fL Normal 8.5-12.2 [facility] Comment on above: Performed By: #### T YPEC #### [facility] (DEFAULT) [address] [address] Platelets (Bld) [#/Vol] 240 10*3/uL Normal 150-393 [facility] Comment on above: Performed By: #### T YPEC #### [facility] (DEFAULT) [address] [address] RBC (Bld) [#/Vol] 4.69 10*6/uL Normal 3.91-5.04 [facility] Comment on above: Performed By: #### T YPEC #### [facility] (DEFAULT) [address] [address] RBC Distribution 13.7 % Normal 10.8-14.9 [facility] Comment on above: Performed By: #### T YPEC #### [facility] (DEFAULT) [address] [address] WBC (Bld) [#/Vol] 11.76 10*3/uL High 3.99-11.19 [facility] Comment on above: Performed By: #### T YPEC #### [facility] (DEFAULT) [address] [place] [address] CHEM 7 (LYTES,BUN,CREA,GLUC) on 08-11-2024 Anion gap [Moles/Vol] 14 mmol/L 7 - 17 mmol/L [facility] Chloride [Moles/Vol] 103 mmol/L 98 - 10 8 mmol/L [facility] CO2 [Moles/Vol] 26 mmol/L 21 - 31 mmol/L [facility] Creatinine [Mass/Vol] 1.32 mg/dL High 0.50 - 1.20 mg/dL [facility] eGFR, CKD-EPI, Female 41 Low - PINF [facility] Glucose [Mass/Vol] 127 mg/dL 70 - 179 mg/dL [facility] Interpretation and review of laboratory results Abnormal [facility] Osmolality Calc [Osmolality] 306 High [facility] Potassium [Moles/Vol] 4.6 mmol/L 3.5 - 5.0 mmol/L [facility] Sodium [Moles/Vol] 138 mmol/L 135 - 145 mmol/L [facility] Urea nitrogen [Mass/Vol] 53 mg/dL High 7 - 25 mg/dL [facility] Urea nitrogen/Creatinine [Mass ratio] 40 mg/mg [facility] Anion gap [Moles/Vol] 14 mmol/L Normal 7-17 [facility] Comment on above: Performed By: #### H [facility] #### [facility] (DEFAULT) [address] [place] [address] Chloride [Moles/Vol] 103 mmol/L Normal 98-108 [facility] Comment on above: Performed By: #### H [facility] #### [facility] (DEFAULT) [address] [place] [address] CO2 [Moles/Vol] 26 mmol/L Normal 21-31 [facility] Comment on above: Performed By: #### H [facility] #### [facility] (DEFAULT) [address] [place] [address] Creatinine [Mass/Vol] 1.32 mg/dL High 0.50-1.[address] [facility] Comment on above: Performed By: #### H EMO #### [facility] (DEFAULT) [address] [place] [address] GFR/1.73 sq M.predicted among non-blacks MDRD (S/P/Bld) [Vol rate/Area] 41 mL/min/{1.73_m2} Low >=60 [facility] Comment on above: Result Comment: Repo rted eGFR is based on the CKD-EPI 2020 equation using creatinine, age, and sex. Performed By: #### H EMOGC #### [facility] (DEFAULT) [address] [place] [address] Glucose [Mass/Vol] 127 mg/dL Normal Nonfastin -179 mg/dL; Fastin-99 [facility] Comment on above: Performed By: #### H EMOGC #### [facility] (DEFAULT) [address] [place] [address] Osmolality [Osmolality] 306 mosm/kg High 278-305 [facility] Comment on above: Performed By: #### H EMOGC #### [facility] (DEFAULT) [address] [place] [address] Potassium [Moles/Vol] 4.6 mmol/L Normal 3.5-5.[address] [facility] Comment on above: Performed By: #### H EMOGC #### [facility] (DEFAULT) [address] [place] [address] Sodium [Moles/Vol] 138 mmol/L Normal 135-145 [facility] Comment on above: Performed By: #### H EMOGC #### [facility] (DEFAULT) [address] [place] [address] Urea nitrogen [Mass/Vol] 53 mg/dL High 7-25 [facility] Comment on above: Performed By: #### H [facility] #### [facility] (DEFAULT) [address] [place] [address] Urea nitrogen/Creatinine [Mass ratio] 40 mg/mg Normal [facility] Comment on above: Performed By: #### H [facility] #### [facility] (DEFAULT) [address] [place] [address] GLUCOSE POCon 08-11-2024 Glucose [Mass/Vol] 213 mg/dL High 70 - 179 mg/dL [facility] Interpretation and review of laboratory results Abnormal [facility] POC Sample Type CAPBL [facility] Glucose [Mass/Vol] 255 mg/dL High 70 - 179 mg/dL [facility] Interpretation and review of laboratory results Abnormal [facility] POC Sample Type CAPBL [facility] Glucose [Mass/Vol] 190 mg/dL High 70 - 179 mg/dL [facility] Interpretation and review of laboratory results Abnormal [facility] POC Sample Type CAPBL [facility] Glucose [Mass/Vol] 205 mg/dL High 70 - 179 mg/dL [facility] Interpretation and review of laboratory results Abnormal [facility] POC Sample Type CAPBL [facility] MAGNESIUMon 08-11-2024 Interpretation and review of laboratory results Normal [facility] Magnesium [Mass/Vol] 1.9 mg/dL 1.6 - 2 .6 mg/dL [facility] Magnesium [Mass/Vol] 1.9 mg/dL Normal 1.6-2.6 [facility] Comment on above: Performed By: #### M WENDY, CHM7 #### [facility] (DEFAULT) [address] [place] [address] No Panel Informationon 08-11 [facility] BLOOD CULTUREon 08-10-2024 Bacteria identified Cx Nom (Unsp spec) NO GROWTH DAY 5 OF 5 Normal [facility] Comment on above: Order Comment: 2 [...] bottle. Performed By: #### T YPEC #### [facility] (DEFAULT) [address] [place] [address] Bacteria identified Cx Nom (Unsp spec) NO GROWTH DAY 5 OF 5 Normal [facility] Comment on above: Order Comment: 2 [...] bottle. Performed By: #### B LDCULT #### [facility] (DEFAULT) [address] [place] [address] CBC,PLATELETSon 08-10-2024 Erythrocyte distribution width (RBC) [Ratio] 13.3 % 10.8 - 14.9 % [facility] Hematocrit (Bld) [Volume fraction] 45.1 % High 34.9 - 44.3 % [facility] Hemoglobin (Bld) [Mass/Vol] 14.1 g/dL 11.4 - 15.2 g/dL [facility] Interpretation and review of laboratory results Abnormal [facility] MCH (RBC) [Entitic mass] 29.1 pg 25.9 - 33.9 pg [facility] MCHC (RBC) [Mass/Vol] 31.3 g/dL Low 31.4 - 35.9 g/dL [facility] MCV (RBC) [Entitic vol] 93 fL 79.6 - 97.7 fL [facility] Platelet mean volume (Bld) [Entitic vol] 11.4 fL 8.5 - 12.2 fL [facility] Platelets (Bld) [#/Vol] 216 10*3/uL 150 - 393 K/uL [facility] RBC (Bld) [#/Vol] 4.85 10*6/uL [facility] WBC (Bld) [#/Vol] 13.78 10*3/uL High 3.99 - 11.19 K/uL [facility] Hematocrit (Bld) [Volume fraction] 45.1 % High 34.9-44.3 [facility] Comment on above: Performed By: #### H EMO #### [facility] (DEFAULT) [address] [place] [address] Hemoglobin (Bld) [Mass/Vol] 14.1 g/dL Normal 11.4-15.2 [facility] Comment on above: Performed By: #### H EMO #### [facility] (DEFAULT) [address] [place] [address] MCV (RBC) [Entitic vol] 93.0 fL Normal 79.6-97.7 [facility] Comment on above: Performed By: #### H EMO #### [facility] (DEFAULT) [address] [place] [address] Mean Cell Hgb 29.1 pg Normal 25.9-33.9 [facility] Comment on above: Performed By: #### H EMOGC #### [facility] (DEFAULT) [address] [place] [address] Mean Cell Hgb Conc 31.3 g/dL Low 31.4-35.9 [facility] Comment on above: Performed By: #### H EMOGC #### [facility] (DEFAULT) [address] [place] [address] Platelet mean volume (Bld) [Entitic vol] 11.4 fL Normal 8.5-12.2 [facility] Comment on above: Performed By: #### H EMO #### [facility] (DEFAULT) [address] [place] [address] Platelets (Bld) [#/Vol] 216 10*3/uL Normal 150-393 [facility] Comment on above: Performed By: #### H EMO #### [facility] (DEFAULT) [address] [place] [address] RBC (Bld) [#/Vol] 4.85 10*6/uL Normal 3.91-5.04 [facility] Comment on above: Performed By: #### H EMOGC #### [facility] (DEFAULT) [address] [place] [address] RBC Distribution 13.3 % Normal 10.8-14.9 [facility] Comment on above: Performed By: #### H EMO #### [facility] (DEFAULT) [address] [place] [address] WBC (Bld) [#/Vol] 13.78 10*3/uL High 3.99-11.19 [facility] Comment on above: Performed By: #### [facility] #### [facility] (DEFAULT) [address] [place] [address] CHEM 7 (LYTES,BUN,CREA,GLUC) on 08-10-2024 Anion gap [Moles/Vol] 16 mmol/L 7 - 17 mmol/L [facility] Chloride [Moles/Vol] 103 mmol/L 98 - 10 8 mmol/L [facility] CO2 [Moles/Vol] 24 mmol/L 21 - 31 mmol/L [facility] Creatinine [Mass/Vol] 1.36 mg/dL High 0.50 - 1.20 mg/dL [facility] eGFR, CKD-EPI, Female 40 Low - PINF [facility] Glucose [Mass/Vol] 186 mg/dL High 70 - 179 mg/dL [facility] Interpretation and review of laboratory results Abnormal [facility] Osmolality Calc [Osmolality] 308 High [facility] Potassium [Moles/Vol] 4.9 mmol/L 3.5 - 5.0 mmol/L [facility] Sodium [Moles/Vol] 138 mmol/L 135 - 145 mmol/L [facility] Urea nitrogen [Mass/Vol] 47 mg/dL High 7 - 25 mg/dL [facility] Urea nitrogen/Creatinine [Mass ratio] 35 mg/mg [facility] Anion gap [Moles/Vol] 16 mmol/L Normal 7-[address] [facility] Comment on above: Performed By: #### CAMERON PALACIOS ####[facility] (DEFAULT)[address] [place] [address] Chloride [Moles/Vol] 103 mmol/L Normal 98-108 [facility] Comment on above: Performed By: #### CAMERON PALACIOS ####[facility] (DEFAULT)[address] [place] [address] CO2 [Moles/Vol] 24 mmol/L Normal 21-31 [facility] Comment on above: Performed By: #### CAMERON PALACIOS ####[facility] (DEFAULT)[address] [place] [address] Creatinine [Mass/Vol] 1.36 mg/dL High 0.50-1.[address] [facility] Comment on above: Performed By: #### HEYDI PALACIOS7 ####[facility] (DEFAULT)[address] [place] [address] GFR/1.73 sq M.predicted among non-blacks MDRD (S/P/Bld) [Vol rate/Area] 40 mL/min/{1.73_m2} Low >=60 [facility] Comment on above: Result Comment: Repo rted eGFR is based on the CKD-EPI 2020 equation using creatinine, age, and sex. Performed By: #### HEYDI PALACIOS7 ####[facility] (DEFAULT)[address] [place] [address] Glucose [Mass/Vol] 186 mg/dL High Nonfastin -179 mg/dL; Fastin-99 [facility] Comment on above: Performed By: #### Jaiden NGUYEN CHM7 ####[facility] (DEFAULT)[address] [place] [address] Osmolality [Osmolality] 308 mosm/kg High 278-305 [facility] Comment on above: Performed By: #### HEYDI PALACIOS7 ####[facility] (DEFAULT)[address] [place] [address] Potassium [Moles/Vol] 4.9 mmol/L Normal 3.5-5.[address] [facility] Comment on above: Performed By: #### HEYDI PALACIOS7 ####[facility] (DEFAULT)[address] [place] [address] Sodium [Moles/Vol] 138 mmol/L Normal 135-145 [facility] Comment on above: Performed By: #### HEYDI PALACIOS7 ####[facility] (DEFAULT)[address] [place] [address] Urea nitrogen [Mass/Vol] 47 mg/dL High 7-25 [facility] Comment on above: Performed By: #### Jaiden NGUYEN CHM7 ####[facility] (DEFAULT)[address] [place] [address] Urea nitrogen/Creatinine [Mass ratio] 35 mg/mg Normal [facility] Comment on above: Performed By: #### Jaiden NGUYEN CHJaiden7 ####[facility] (DEFAULT)[address] [place] [address] GLUCOSE POCon 08-10-2024 Glucose [Mass/Vol] 144 mg/dL 70 - 179 mg/dL [facility] POC Sample Type CAPBL [facility] Glucose [Mass/Vol] 177 mg/dL 70 - 179 mg/dL [facility] POC Sample Type [facility] Glucose [Mass/Vol] 180 mg/dL High 70 - 179 mg/dL [facility] Interpretation and review of laboratory results Abnormal [facility] POC Sample Type [facility] Glucose [Mass/Vol] 193 mg/dL High 70 - 179 mg/dL [facility] Interpretation and review of laboratory results Abnormal [facility] POC Sample Type CAPBL [facility] Glucose [Mass/Vol] 200 mg/dL High 70 - 179 mg/dL [facility] Interpretation and review of laboratory results Abnormal [facility] POC Sample Type CAPBL [facility] Glucose [Mass/Vol] 198 mg/dL High 70 - 179 mg/dL [facility] Interpretation and review of laboratory results Abnormal [facility] POC Sample [facility] MAGNESIUMon 08-10-2024 Interpretation and review of laboratory results Normal [facility] Magnesium [Mass/Vol] 1.8 mg/dL 1.6 - 2 .6 mg/dL [facility] Magnesium [Mass/Vol] 1.8 mg/dL Normal 1.6-2.6 [facility] Comment on above: Performed By: #### M [facility] ####[facility] (DEFAULT)[address] [place] [address] No Panel Informationon 08-10 [facility] URINE CULTUREOrdered By: Franklin Carcamo on 08-10-2024 Bacteria identified Cx Nom (Unsp spec) Growth [facility] Bacteria identified Cx Nom (Unsp spec) KLEBSIELLA PNEUMONIAE Abnormal [facility] Interpretation and review of laboratory results Abnormal [facility] CBC,PLATELETSon 08-09-2024 Erythrocyte distribution width (RBC) [Ratio] 13.5 % 10.8 - 14.9 % [facility] Hematocrit (Bld) [Volume fraction] 44.4 % High 34.9 - 44.3 % [facility] Hemoglobin (Bld) [Mass/Vol] 14.1 g/dL 11.4 - 15.2 g/dL [facility] Interpretation and review of laboratory results Abnormal [facility] MCH (RBC) [Entitic mass] 29.4 pg 25.9 - 33.9 pg [facility] MCHC (RBC) [Mass/Vol] 31.8 g/dL 31.4 - 35.9 g/dL [facility] MCV (RBC) [Entitic vol] 92.7 fL 79.6 - 97.7 fL [facility] Platelet mean volume (Bld) [Entitic vol] 11.5 fL 8.5 - 12.2 fL [facility] Platelets (Bld) [#/Vol] 226 10*3/uL 150 - 393 K/uL [facility] RBC (Bld) [#/Vol] 4.79 10*6/uL [facility] WBC (Bld) [#/Vol] 12.37 10*3/uL High 3.99 - 11.19 K/uL [facility] Hematocrit (Bld) [Volume fraction] 44.4 % High 34.9-44.3 [facility] Comment on above: Performed By: #### H [facility] #### [facility] (DEFAULT) [address] [place] [address] Hemoglobin (Bld) [Mass/Vol] 14.1 g/dL Normal 11.4-15.2 [facility] Comment on above: Performed By: #### H [facility] #### [facility] (DEFAULT) [address] [place] [address] MCV (RBC) [Entitic vol] 92.7 fL Normal 79.6-97.7 O [facility] Comment on above: Performed By: #### H EMOGC #### [facility] (DEFAULT) [address] [address] Mean Cell Hgb 29.4 pg Normal 25.9-33.9 [facility] Comment on above: Performed By: #### H EMOGC #### [facility] (DEFAULT) [address] [address] Mean Cell Hgb Conc 31.8 g/dL Normal 31.4-35.9 [facility] Comment on above: Performed By: #### H EMO #### [facility] (DEFAULT) [address] [address] Platelet mean volume (Bld) [Entitic vol] 11.5 fL Normal 8.5-12.2 [facility] Comment on above: Performed By: #### H EMO #### [facility] (DEFAULT) [address] [address] Platelets (Bld) [#/Vol] 226 10*3/uL Normal 150-393 [facility] Comment on above: Performed By: #### H EMO #### [facility] (DEFAULT) [address] [address] RBC (Bld) [#/Vol] 4.79 10*6/uL Normal 3.91-5.04 [facility] Comment on above: Performed By: #### H EMOGC #### [facility] (DEFAULT) [address] [address] RBC Distribution 13.5 % Normal 10.8-14.9 [facility] Comment on above: Performed By: #### H EMOGC #### [facility] (DEFAULT) [address] [address] WBC (Bld) [#/Vol] 12.37 10*3/uL High 3.99-11.19 [facility] Comment on above: Performed By: #### H [facility] #### [facility] (DEFAULT) [address] [place] [address] CHEM 7 (LYTES,BUN,CREA,GLUC) on 08-09-2024 Anion gap [Moles/Vol] 14 mmol/L 7 - 17 mmol/L [facility] Chloride [Moles/Vol] 103 mmol/L 98 - 10 8 mmol/L [facility] CO2 [Moles/Vol] 26 mmol/L 21 - 31 mmol/L [facility] Creatinine [Mass/Vol] 1.35 mg/dL High 0.50 - 1.20 mg/dL [facility] eGFR, CKD-EPI, Female 40 Low - PINF [facility] Glucose [Mass/Vol] 182 mg/dL High 70 - 179 mg/dL [facility] Interpretation and review of laboratory results Abnormal [facility] Osmolality Calc [Osmolality] 305 [facility] Potassium [Moles/Vol] 4.9 mmol/L 3.5 - 5.0 mmol/L [facility] Sodium [Moles/Vol] 138 mmol/L 135 - 145 mmol/L [facility] Urea nitrogen [Mass/Vol] 38 mg/dL High 7 - 25 mg/dL [facility] Urea nitrogen/Creatinine [Mass ratio] 28 mg/mg [facility] Anion gap [Moles/Vol] 14 mmol/L Normal 7-17 Ori [facility] Comment on above: Performed By: #### H [facility] #### [facility] (DEFAULT) [address] [place] [address] Chloride [Moles/Vol] 103 mmol/L Normal 98-108 [facility] Comment on above: Performed By: #### H [facility] #### [facility] (DEFAULT) [address] [place] [address] CO2 [Moles/Vol] 26 mmol/L Normal 21-31 [facility] Comment on above: Performed By: #### H [facility] #### [facility] (DEFAULT) [address] [place] [address] Creatinine [Mass/Vol] 1.35 mg/dL High 0.50-1.[address] [facility] Comment on above: Performed By: #### H EMO #### [facility] (DEFAULT) [address] [place] [address] GFR/1.73 sq M.predicted among non-blacks MDRD (S/P/Bld) [Vol rate/Area] 40 mL/min/{1.73_m2} Low >=60 [facility] Comment on above: Result Comment: Repo rted eGFR is based on the CKD-EPI 2020 equation using creatinine, age, and sex. Performed By: #### H EMO #### [facility] (DEFAULT) [address] [place] [address] Glucose [Mass/Vol] 182 mg/dL High Nonfastin -179 mg/dL; Fastin-99 [facility] Comment on above: Performed By: #### H EMOGC #### [facility] (DEFAULT) [address] [place] [address] Osmolality [Osmolality] 305 mosm/kg Normal 278-305 [facility] Comment on above: Performed By: #### H EMOGC #### [facility] (DEFAULT) [address] [place] [address] Potassium [Moles/Vol] 4.9 mmol/L Normal 3.5-5.[address] [facility] Comment on above: Performed By: #### H EMOGC #### [facility] (DEFAULT) [address] [place] [address] Sodium [Moles/Vol] 138 mmol/L Normal 135-145 [facility] Comment on above: Performed By: #### H EMOGC #### [facility] (DEFAULT) [address] [place] [address] Urea nitrogen [Mass/Vol] 38 mg/dL High 7-25 [facility] Comment on above: Performed By: #### H [facility] #### [facility] (DEFAULT) [address] [place] [address] Urea nitrogen/Creatinine [Mass ratio] 28 mg/mg Normal [facility] Comment on above: Performed By: #### H [facility] #### [facility] (DEFAULT) [address] [place] [address] EXTRA MICROon 08-09-2024 [facility] GLUCOSE POCon 08-09-2024 Glucose [Mass/Vol] 186 mg/dL High 70 - 179 mg/dL [facility] Interpretation and review of laboratory results Abnormal [facility] Glucose [Mass/Vol] 255 mg/dL High 70 - 179 mg/dL [facility] Interpretation and review of laboratory results Abnormal [facility]OC [facility] Glucose [Mass/Vol] 235 mg/dL High 70 - 179 mg/dL [facility] Interpretation and review of laboratory results Abnormal [facility] POC [facility] Glucose [Mass/Vol] 167 mg/dL 70 - 179 mg/dL [facility] POC Sample Type [facility] INTERVENTIONAL UPPER ENDOSCO PYon 08-09-2024 Body surface area Derived from formula 1.9 m2 [facility] LAB, [facility] Radiology Study observation (narrative) [facility] MAGNESIUMon 08-09-2024 Interpretation and review of laboratory results Normal [facility] Magnesium [Mass/Vol] 1.8 mg/dL 1.6 - 2 .6 mg/dL [facility] Magnesium [Mass/Vol] 1.8 mg/dL Normal 1.6-2.6 [facility] Comment on above: Performed By: #### H EMOGC #### [facility] (DEFAULT) [address] [place] [phone] No Panel Informationon 08-09 [facility] PT,INR,PTTon 08-09-2024 aPTT Coag (PPP) [Time] 38.4 s High [facility] INR Coag (Bld) [Relative time] 1 {INR} 0.9 - 1.1 [facility] Interpretation and review of laboratory results Abnormal [facility] PT Coag (PPP) [Time] 13 s [facility] aPTT Coag (Bld) [Time] 38.4 s High 24.0-34.3 [facility] Comment on above: Performed By: #### B LDCULT #### [facility] (DEFAULT) [address] [place] [address] INR Coag (PPP) [Relative time] 1.0 {INR} Normal 0.9-1.1 [facility] Comment on above: Performed By: #### B LDCULT #### [facility] (DEFAULT) [address] [address] PT Coag (PPP) [Time] 13.0 s Normal 11.9-14.2 [facility] Comment on above: Performed By: #### B LDCULT #### [facility] (DEFAULT) [address] [address] SURG PATH REQUESTon 08-10-19 Case Report Normal [facility] Comment on above: Result Comment: Surg ical Pathology Report Case: [id number] Authorizing Provider: Judson Keith DO Collected: 08/09/2024 10:07 AM Ordering Location: [facility] Received: 08/09/2024 12:13 PM Pathologist: Renae Glez MD Specimen: STOMACH, gastric, r/o HP Performed By: #### S URGP #### [facility] (DEFAULT) [address] [place] [address] Clinical History R/O HP. Associated Diagnosis: None. Medical History: No medical history provided. [facility] Comment on above: Performed By: #### S URGP #### [facility] (DEFAULT) [address] [address] Gross Description [facility] Comment on above: Result Comment: The specimen is received in one properly labeled container with the patient's name and accession number. A. The specimen is designated "gastric, r/o hp" and consists of five fragments of jackson-pink soft tissue, from 0.2 up to 0.6 cm in greatest dimension. TE 1 Lab Use Only: JobID [id number] Grosser for this case was: Sunshine Hidalgo Performed By: #### S URGP #### [facility] (DEFAULT) [address] [place] [address] Microscopic Description A microscopic examination was performed. [facility] Comment on above: Performed By: #### S URGP #### [facility] (DEFAULT) [address] [address] Pathologic Diagnosis [facility] Comment on above: Result Comment: Anjelica echols, biopsy: Focal erosion No Helicobacter pylori identified at 1005 EDT Performed By: #### S URGP #### [facility] (DEFAULT) [address] [address] Professional Interpretation Performed at: [facility] Comment on above: Result Comment: [facility] For Immediate Release [facility] Yes [address] [address] Performed By: #### S URGP #### [facility] (DEFAULT) [address] [address] CBC,PLATELETSon 08-08-2024 Erythrocyte distribution width (RBC) [Ratio] 13.6 % 10.8 - 14.9 % [facility] Hematocrit (Bld) [Volume fraction] 45.7 % High 34.9 - 44.3 % [facility] Hemoglobin (Bld) [Mass/Vol] 14.4 g/dL 11.4 - 15.2 g/dL [facility] Interpretation and review of laboratory results Abnormal [facility] MCH (RBC) [Entitic mass] 29.4 pg 25.9 - 33.9 pg [facility] MCHC (RBC) [Mass/Vol] 31.5 g/dL 31.4 - 35.9 g/dL [facility] MCV (RBC) [Entitic vol] 93.3 fL 79.6 - 97.7 fL [facility] Platelet mean volume (Bld) [Entitic vol] 10.9 fL 8.5 - 12.2 fL [facility] Platelets (Bld) [#/Vol] 212 10*3/uL 150 - 393 K/uL [facility] RBC (Bld) [#/Vol] 4.9 10*6/uL [facility] WBC (Bld) [#/Vol] 10.39 10*3/uL 3.99 - 11.19 K/uL [facility] Hematocrit (Bld) [Volume fraction] 45.7 % High 34.9-44.3 [facility] Comment on above: Performed By: #### H [facility] #### [facility] (DEFAULT) [address] [place] [address] Hemoglobin (Bld) [Mass/Vol] 14.4 g/dL Normal 11.4-15.2 [facility] Comment on above: Performed By: #### H EMO #### [facility] (DEFAULT) [address] [place] [address] MCV (RBC) [Entitic vol] 93.3 fL Normal 79.6-97.7 [facility] Comment on above: Performed By: #### H EMO #### [facility] (DEFAULT) [address] [place] [address] Mean Cell Hgb 29.4 pg Normal 25.9-33.9 [facility] Comment on above: Performed By: #### H EMOGC #### [facility] (DEFAULT) [address] [address] Mean Cell Hgb Conc 31.5 g/dL Normal 31.4-35.9 [facility] Comment on above: Performed By: #### H EMOGC #### [facility] (DEFAULT) [address] [address] Platelet mean volume (Bld) [Entitic vol] 10.9 fL Normal 8.5-12.2 [facility] Comment on above: Performed By: #### H EMOGC #### [facility] (DEFAULT) [address] [address] Platelets (Bld) [#/Vol] 212 10*3/uL Normal 150-393 [facility] Comment on above: Performed By: #### H EMOGC #### [facility] (DEFAULT) [address] [address] RBC (Bld) [#/Vol] 4.90 10*6/uL Normal 3.91-5.04 [facility] Comment on above: Performed By: #### H EMOGC #### [facility] (DEFAULT) [address] [address] RBC Distribution 13.6 % Normal 10.8-14.9 [facility] Comment on above: Performed By: #### H EMOGC #### [facility] (DEFAULT) [address] [address] WBC (Bld) [#/Vol] 10.39 10*3/uL Normal 3.99-11.19 [facility] Comment on above: Performed By: #### H EMOGC #### [facility] (DEFAULT) [address] [address] CHEM 7 (LYTES,BUN,CREA,GLUC) on 08-08-2024 Anion gap [Moles/Vol] 15 mmol/L 7 - 17 mmol/L [facility] Chloride [Moles/Vol] 104 mmol/L 98 - 10 8 mmol/L [facility] CO2 [Moles/Vol] 25 mmol/L 21 - 31 mmol/L [facility] Creatinine [Mass/Vol] 1.15 mg/dL 0.50 - 1.20 mg/dL [facility] eGFR, CKD-EPI, Female 48 Low - PINF [facility] Glucose [Mass/Vol] 111 mg/dL 70 - 179 mg/dL [facility] Interpretation and review of laboratory results Abnormal [facility] Osmolality Calc [Osmolality] 302 [facility] Potassium [Moles/Vol] 4.3 mmol/L 3.5 - 5.0 mmol/L [facility] Sodium [Moles/Vol] 140 mmol/L 135 - 145 mmol/L [facility] Urea nitrogen [Mass/Vol] 35 mg/dL High 7 - 25 mg/dL [facility] Urea nitrogen/Creatinine [Mass ratio] 30 mg/mg [facility] Anion gap [Moles/Vol] 15 mmol/L Normal 7-[address] [facility] Comment on above: Performed By: ###CAMERON TURNER ####[facility] (DEFAULT)[address] [place] [address] Chloride [Moles/Vol] 104 mmol/L Normal 98-108 [facility] Comment on above: Performed By: #### CAMERON PALACIOS ####[facility] (DEFAULT)[address] [place] [address] CO2 [Moles/Vol] 25 mmol/L Normal 21-31 [facility] Comment on above: Performed By: #### CAMERON PALACIOS ####[facility] (DEFAULT)[address] [place] [address] Creatinine [Mass/Vol] 1.15 mg/dL Normal 0.50-1.[address] [facility] Comment on above: Performed By: #### CAMERON PALACIOS ####[facility] (DEFAULT)[address] [place] [address] GFR/1.73 sq M.predicted among non-blacks MDRD (S/P/Bld) [Vol rate/Area] 48 mL/min/{1.73_m2} Low >=60 [facility] Comment on above: Result Comment: Repo rted eGFR is based on the CKD-EPI 2020 equation using creatinine, age, and sex. Performed By: #### HEYDI PALACIOS7 ####[facility] (DEFAULT)[address] [place] [address] Glucose [Mass/Vol] 111 mg/dL Normal Nonfastin -179 mg/dL; Fastin-99 [facility] Comment on above: Performed By: #### CAMERON PALACIOS ####[facility] (DEFAULT)[address] [place] [address] Osmolality [Osmolality] 302 mosm/kg Normal 278-305 [facility] Comment on above: Performed By: #### HEYDI PALACIOS7 ####[facility] (DEFAULT)[address] [place] [address] Potassium [Moles/Vol] 4.3 mmol/L Normal 3.5-5.[address] [facility] Comment on above: Performed By: #### Jaiden NGUYEN CHM7 ####[facility] (DEFAULT)[address] [place] [address] Sodium [Moles/Vol] 140 mmol/L Normal 135-145 [facility] Comment on above: Performed By: #### Jaiden NGUYEN CHM7 ####[facility] (DEFAULT)[address] [place] [address] Urea nitrogen [Mass/Vol] 35 mg/dL High 7-25 [facility] Comment on above: Performed By: #### Jaiden NGUYEN CHM7 ####[facility] (DEFAULT)[address] [place] [address] Urea nitrogen/Creatinine [Mass ratio] 30 mg/mg Normal [facility] Comment on above: Performed By: #### M [facility] ####[facility] (DEFAULT)[address] [place] [address] CT HEAD WITHOUT CONTRASTon 0 08-08-2024 CT [...] have reviewed and approved this report. Normal [facility] CT Head WO contraston [address] [facility] Radiology Study observation (narrative) [facility] GLUCOSE POCon 08-08-2024 Glucose [Mass/Vol] 150 mg/dL 70 - 179 mg/dL [facility] POC Sample Type [facility] Glucose [Mass/Vol] 148 mg/dL 70 - 179 mg/dL [facility] POC Sample Type [facility] Glucose [Mass/Vol] 192 mg/dL High 70 - 179 mg/dL [facility] Interpretation and review of laboratory results Abnormal [facility] POC Sample Type [facility] Glucose [Mass/Vol] 198 mg/dL High 70 - 179 mg/dL [facility] Interpretation and review of laboratory results Abnormal [facility] POC Sample Type [facility] Glucose [Mass/Vol] 186 mg/dL High 70 - 179 mg/dL [facility] Interpretation and review of laboratory results Abnormal [facility] POC Sample Type CAPBL [facility] MAGNESIUMon 08-08-2024 Interpretation and review of laboratory results Normal [facility] Magnesium [Mass/Vol] 1.7 mg/dL 1.6 - 2 .6 mg/dL [facility] Magnesium [Mass/Vol] 1.7 mg/dL Normal 1.6-2.6 [facility] Comment on above: Performed By: #### M WENDY, [facility] ####[facility] (DEFAULT)[address] [place] [address] No Panel Informationon 08-08 [facility] URINALYSIS REFLEX TO CULTURE PERFORMABLEOrdered By: Danya Yates on 08-08-2024 Appearance (U) Cloudy Abnormal Clear [facility] Bacteria LM Ql (Urine sed) PRESENT Abnormal ABSENT [facility] Color (U) Yellow Yellow [facility] Epithelial cells.squamous LM Ql (Urine sed) 0-2/hpf 0-2/hpf, 3-5/hpf = 1+ [facility] Glucose Test strip (U) [Mass/Vol] Negative Negative [facility] Interpretation and review of laboratory results Abnormal [facility] Ketones (U) [Mass/Vol] Trace Abnormal Negative OS [facility] Leukocyte esterase Test strip Ql (U) Large Abnormal Negative [facility] Nitrite Ql (U) Positive Abnormal Negative [facility] pH (U) 7.0 [pH] 5.0 - 7.0 [facility] Protein (U) [Mass/Vol] Trace Abnormal Negative OS [facility] RBC (U) [#/Vol] Trace Abnormal Negative U [facility] RBC LM.HPF (Urine sed) [#/Area] 6-10 Abnormal [facility] Specific gravity (U) [Rel density] 1.023 1.001 - 1.035 [facility] Urobilinogen (U) [Mass/Vol] 1.0 E.U./dL 0.2 E.U/dL, 1.0 E.U/dL [facility] WBC LM.HPF (Urine sed) [#/Area] /[HPF] Abnormal [facility] URINALYSIS REFLEX TO CULTURE PERFORMABLEon 08-08-2024 Appearance (U) Cloudy Abnormal Clear [facility] Comment on above: Order Comment: For i ndwelling catheters, specimen collection is acceptable on catheter day 1 and 2 only. ? Performed By: #### T YPEC #### [facility] (DEFAULT) [address] [place] [address] Bacteria PRESENT Abnormal ABSENT [facility] Comment on above: Order Comment: For i ndwelling catheters, specimen collection is acceptable on catheter day 1 and 2 only. ? Performed By: #### T YPEC #### [facility] (DEFAULT) [address] [address] Blood Urine Trace Abnormal Negative [facility] Comment on above: Order Comment: For i ndwelling catheters, specimen collection is acceptable on catheter day 1 and 2 only. ? Performed By: #### T YPEC #### [facility] (DEFAULT) [address] [place] [address] Color (U) Yellow Normal Yellow [facility] Comment on above: Order Comment: For i ndwelling catheters, specimen collection is acceptable on catheter day 1 and 2 only. ? Performed By: #### T YPEC #### [facility] (DEFAULT) [address] [place] [address] Glucose Ql (U) Negative Normal Negative [facility] Comment on above: Order Comment: For i ndwelling catheters, specimen collection is acceptable on catheter day 1 and 2 only. ? Performed By: #### T YPEC #### [facility] (DEFAULT) [address] [place] [address] Ketones Ql (U) Trace Abnormal Negative [facility] Comment on above: Order Comment: For i ndwelling catheters, specimen collection is acceptable on catheter day 1 and 2 only. ? Performed By: #### T YPEC #### [facility] (DEFAULT) [address] [place] [address] Leukocyte esterase Test strip Ql (U) Large Abnormal Negative [facility] Comment on above: Order Comment: For i ndwelling catheters, specimen collection is acceptable on catheter day 1 and 2 only. ? Performed By: #### T YPEC #### [facility] (DEFAULT) [address] [place] [address] Nitrites Urine Positive Abnormal Negative [facility] Comment on above: Order Comment: For i ndwelling catheters, specimen collection is acceptable on catheter day 1 and 2 only. ? Performed By: #### T YPEC #### [facility] (DEFAULT) [address] [place] [address] pH (U) 7.0 [pH] Normal 5.0-7.0 [facility] Comment on above: Order Comment: For i ndwelling catheters, specimen collection is acceptable on catheter day 1 and 2 only. ? Performed By: #### T YPEC #### [facility] (DEFAULT) [address] [place] [address] Protein Urine Trace Abnormal Negative [facility] Comment on above: Order Comment: For i ndwelling catheters, specimen collection is acceptable on catheter day 1 and 2 only. ? Performed By: #### T YPEC #### [facility] (DEFAULT) [address] [address] RBC Urine 6-10 Abnormal 0-2 [facility] Comment on above: Order Comment: For i ndwelling catheters, specimen collection is acceptable on catheter day 1 and 2 only. ? Performed By: #### T YPEC #### [facility] (DEFAULT) [address] [address] Specific Exchange Urine 1.023 Normal 1.001-1.035 [facility] Comment on above: Order Comment: For i ndwelling catheters, specimen collection is acceptable on catheter day 1 and 2 only. ? Performed By: #### T YPEC #### [facility] (DEFAULT) [address] [address] Squamous/Epithelial Cells, Urine 0-2/hpf Normal 0-2/hpf, 3-5/hpf = 1+ [facility] Comment on above: Order Comment: For i ndwelling catheters, specimen collection is acceptable on catheter day 1 and 2 only. ? Performed By: #### T YPEC #### [facility] (DEFAULT) [address] [place] [address] Urobilinogen Urine 1.0 E.U./dL Normal 0.2 E.U/d L, 1.0 E.U/dL [facility] Comment on above: Order Comment: For i ndwelling catheters, specimen collection is acceptable on catheter day 1 and 2 only. ? Performed By: #### T YPEC #### [facility] (DEFAULT) [address] [address] WBC LM.HPF (Urine sed) [#/Area] /[HPF] Abnormal 0 - 5 [facility] Comment on above: Order Comment: For i ndwelling catheters, specimen collection is acceptable on catheter day 1 and 2 only. ? Performed By: #### T YPEC #### [facility] (DEFAULT) [address] [address] URINE CULTUREon 08-08-2024 Amikacin [Susceptibility] <= Invalid Interpretation Code [facility] Comment on above: Order Comment: For [...] ? Performed By: #### T YPEC #### [facility] (DEFAULT) [address] [address] Ampicillin [Susceptibility] >=32 Resistant [facility] Comment on above: Order Comment: For [...] ? Performed By: #### T YPEC #### [facility] (DEFAULT) [address] [address] Ampicillin+Sulbactam [Susceptibility] >=32 Resistant [facility] Comment on above: Order Comment: For [...] ? Performed By: #### T YPEC #### [facility] (DEFAULT) [address] [address] ceFAZolin [Susceptibility] >= Resistant [facility] Comment on above: Order Comment: For [...] Performed By: #### T YPEC #### [facility] (DEFAULT) [address] [address] Cefepime [Susceptibility] <= Invalid Interpretation Code [facility] Comment on above: Order Comment: For [...] ? Performed By: #### T YPEC #### [facility] (DEFAULT) [address] [address] cefTRIAXone [Susceptibility] <= Invalid Interpretation Code [facility] Comment on above: Order Comment: For [...] Performed By: #### T YPEC #### [facility] (DEFAULT) [address] [address] Ciprofloxacin [Susceptibility] >= Resistant [facility] Comment on above: Order Comment: For [...] ? Performed By: #### T YPEC #### [facility] (DEFAULT) [address] [address] Ertapenem [Susceptibility] <= Invalid Interpretation Code [facility] Comment on above: Order Comment: For [...] ? Performed By: #### T YPEC #### [facility] (DEFAULT) [address] [address] Gentamicin [Susceptibility] <= Invalid Interpretation Code [facility] Comment on above: Order Comment: For [...] ? Performed By: #### T YPEC #### [facility] (DEFAULT) [address] [address] levoFLOXacin [Susceptibility] >= Resistant [facility] Comment on above: Order Comment: For [...] Performed By: #### T YPEC #### [facility] (DEFAULT) [address] [place] [address] Nitrofurantoin [Susceptibility] 128 ug/mL Resistant [facility] Comment on above: Order Comment: For [...] ? Performed By: #### T YPEC #### [facility] (DEFAULT) [address] [address] Piperacillin+Tazobactam [Susceptibility] 8 ug/mL Invalid Interpretation Code [facility] Comment on above: Order Comment: For [...] ? Performed By: #### T YPEC #### [facility] (DEFAULT) [address] [address] Trimethoprim+Sulfametho xazole [Susceptibility] <= Invalid Interpretation Code [facility] Comment on above: Order Comment: For [...] ? Performed By: #### T YPEC #### [facility] (DEFAULT) [address] [address] CBC,PLATELETSon 08-07-2024 Erythrocyte distribution width (RBC) [Ratio] 13.9 % 10.8 - 14.9 % [facility] Hematocrit (Bld) [Volume fraction] 43.1 % 34.9 - 44.3 % [facility] Hemoglobin (Bld) [Mass/Vol] 13.7 g/dL 11.4 - 15.2 g/dL [facility] Interpretation and review of laboratory results Abnormal [facility] MCH (RBC) [Entitic mass] 29.6 pg 25.9 - 33.9 pg [facility] MCHC (RBC) [Mass/Vol] 31.8 g/dL 31.4 - 35.9 g/dL [facility] MCV (RBC) [Entitic vol] 93.1 fL 79.6 - 97.7 fL [facility] Platelet mean volume (Bld) [Entitic vol] 11.1 fL 8.5 - 12.2 fL [facility] Platelets (Bld) [#/Vol] 214 10*3/uL 150 - 393 K/uL [facility] RBC (Bld) [#/Vol] 4.63 10*6/uL [facility] WBC (Bld) [#/Vol] 11.3 10*3/uL High 3.99 - 11.19 K/uL [facility] CHEM 7 (LYTES,BUN,CREA,GLUC) on 08-07-2024 Anion gap [Moles/Vol] 13 mmol/L 7 - 17 mmol/L [facility] Chloride [Moles/Vol] 105 mmol/L 98 - 10 8 mmol/L [facility] CO2 [Moles/Vol] 28 mmol/L 21 - 31 mmol/L [facility] Creatinine [Mass/Vol] 1.19 mg/dL 0.50 - 1.20 mg/dL [facility] eGFR, CKD-EPI, Female 47 Low - PINF [facility] Glucose [Mass/Vol] 90 mg/dL 70 - 179 mg/dL [facility] Interpretation and review of laboratory results Abnormal [facility] Osmolality Calc [Osmolality] 304 [facility] Potassium [Moles/Vol] 4.2 mmol/L 3.5 - 5.0 mmol/L [facility] Sodium [Moles/Vol] 142 mmol/L 135 - 145 mmol/L [facility] Urea nitrogen [Mass/Vol] 34 mg/dL High 7 - 25 mg/dL [facility] Urea nitrogen/Creatinine [Mass ratio] 29 mg/mg [facility] GLUCOSE POCon 08-07-2024 Glucose [Mass/Vol] 185 mg/dL High 70 - 179 mg/dL [facility] Interpretation and review of laboratory results Abnormal [facility] POC Sample Type CAPBL [facility] Glucose [Mass/Vol] 106 mg/dL 70 - 179 mg/dL [facility] POC Sample Type CAPBL [facility] Glucose [Mass/Vol] 104 mg/dL 70 - 179 mg/dL [facility] POC Sample Type CAPBL [facility] MAGNESIUMon 08-07-2024 Interpretation and review of laboratory results Normal [facility] Magnesium [Mass/Vol] 1.8 mg/dL 1.6 - 2 .6 mg/dL [facility] No Panel Informationon 08-07 [facility] CBC,PLATELETSon 08-06-2024 Hematocrit (Bld) [Volume fraction] 43.1 % Normal 34.9-44.3 [facility] Comment on above: Performed By: #### X M #### [facility] (DEFAULT) [address] [place] [address] Hemoglobin (Bld) [Mass/Vol] 13.7 g/dL Normal 11.4-15.2 [facility] Comment on above: Performed By: #### X M #### [facility] (DEFAULT) [address] [place] [address] MCV (RBC) [Entitic vol] 93.1 fL Normal 79.6-97.7 [facility] Comment on above: Performed By: #### X M #### [facility] (DEFAULT) [address] [place] [address] Mean Cell Hgb 29.6 pg Normal 25.9-33.9 [facility] Comment on above: Performed By: #### X M #### [facility] (DEFAULT) [address] [place] [address] Mean Cell Hgb Conc 31.8 g/dL Normal 31.4-35.9 [facility] Comment on above: Performed By: #### X M #### [facility] (DEFAULT) [address] [place] [address] Platelet mean volume (Bld) [Entitic vol] 11.1 fL Normal 8.5-12.2 [facility] Comment on above: Performed By: #### X M #### [facility] (DEFAULT) [address] [place] [address] Platelets (Bld) [#/Vol] 214 10*3/uL Normal 150-393 [facility] Comment on above: Performed By: #### X M #### [facility] (DEFAULT) [address] [place] [address] RBC (Bld) [#/Vol] 4.63 10*6/uL Normal 3.91-5.04 [facility] Comment on above: Performed By: #### X M #### [facility] (DEFAULT) [address] [place] [address] RBC Distribution 13.9 % Normal 10.8-14.9 [facility] Comment on above: Performed By: #### X M #### [facility] (DEFAULT) [address] [place] [address] WBC (Bld) [#/Vol] 11.30 10*3/uL High 3.99-11.19 [facility] Comment on above: Performed By: #### X M #### [facility] (DEFAULT) [address] [place] [address] Erythrocyte distribution width (RBC) [Ratio] 13.9 % 10.8 - 14.9 % [facility] Hematocrit (Bld) [Volume fraction] 44 % 34.9 - 44.3 % [facility] Hemoglobin (Bld) [Mass/Vol] 13.9 g/dL 11.4 - 15.2 g/dL [facility] Interpretation and review of laboratory results Abnormal [facility] MCH (RBC) [Entitic mass] 29.1 pg 25.9 - 33.9 pg [facility] MCHC (RBC) [Mass/Vol] 31.6 g/dL 31.4 - 35.9 g/dL [facility] MCV (RBC) [Entitic vol] 92.2 fL 79.6 - 97.7 fL [facility] Platelet mean volume (Bld) [Entitic vol] 10.7 fL 8.5 - 12.2 fL [facility] Platelets (Bld) [#/Vol] 216 10*3/uL 150 - 393 K/uL [facility] RBC (Bld) [#/Vol] 4.77 10*6/uL [facility] WBC (Bld) [#/Vol] 12.14 10*3/uL High 3.99 - 11.19 K/uL [facility] CHEM 7 (LYTES,BUN,CREA,GLUC) on 08-06-2024 Anion gap [Moles/Vol] 13 mmol/L Normal 7-[address] [facility] Comment on above: Performed By: #### HEYDI PALACIOS7 ####[facility] (DEFAULT)[address] [place] [address] Chloride [Moles/Vol] 105 mmol/L Normal 98-108 [facility] Comment on above: Performed By: #### HEYDI PALACIOS7 ####[facility] (DEFAULT)[address] [place] [address] CO2 [Moles/Vol] 28 mmol/L Normal 21-31 [facility] Comment on above: Performed By: #### HEYDI PALACIOS7 ####[facility] (DEFAULT)[address] [place] [address] Creatinine [Mass/Vol] 1.19 mg/dL Normal 0.50-1.[address] [facility] Comment on above: Performed By: #### HEYDI PALACIOS7 ####[facility] (DEFAULT)[address] [place] [address] GFR/1.73 sq M.predicted among non-blacks MDRD (S/P/Bld) [Vol rate/Area] 47 mL/min/{1.73_m2} Low >=60 [facility] Comment on above: Result Comment: Repo rted eGFR is based on the CKD-EPI 2020 equation using creatinine, age, and sex. Performed By: #### HEYDI PALACIOS7 ####[facility] (DEFAULT)[address] [place] [address] Glucose [Mass/Vol] 90 mg/dL Normal Nonfastin -179 mg/dL; Fastin-99 [facility] Comment on above: Performed By: #### CAMERON PALACIOS ####[facility] (DEFAULT)[address] [place] [address] Osmolality [Osmolality] 304 mosm/kg Normal 278-305 [facility] Comment on above: Performed By: #### HEYDI PALACIOS7 ####[facility] (DEFAULT)[address] [place] [address] Potassium [Moles/Vol] 4.2 mmol/L Normal 3.5-5.[address] [facility] Comment on above: Performed By: #### CAMERON PALACIOS ####[facility] (DEFAULT)[address] [place] [address] Sodium [Moles/Vol] 142 mmol/L Normal 135-145 [facility] Comment on above: Performed By: #### HEYDI PALACIOS7 ####[facility] (DEFAULT)[address] [place] [address] Urea nitrogen [Mass/Vol] 34 mg/dL High 7-25 [facility] Comment on above: Performed By: #### HEYDI PALACIOS7 ####[facility] (DEFAULT)[address] [place] [address] Urea nitrogen/Creatinine [Mass ratio] 29 mg/mg Normal [facility] Comment on above: Performed By: #### CAMERON PALACIOS ####[facility] (DEFAULT)[address] [place] [address] Anion gap [Moles/Vol] 14 mmol/L 7 - 17 mmol/L [facility] Chloride [Moles/Vol] 107 mmol/L 98 - 10 8 mmol/L [facility] CO2 [Moles/Vol] 27 mmol/L 21 - 31 mmol/L [facility] Creatinine [Mass/Vol] 1.19 mg/dL 0.50 - 1.20 mg/dL [facility] eGFR, CKD-EPI, Female 47 Low - PINF [facility] Glucose [Mass/Vol] 88 mg/dL 70 - 179 mg/dL [facility] Interpretation and review of laboratory results Abnormal [facility] Osmolality Calc [Osmolality] 307 High [facility] Potassium [Moles/Vol] 3.9 mmol/L 3.5 - 5.0 mmol/L [facility] Sodium [Moles/Vol] 144 mmol/L 135 - 145 mmol/L [facility] Urea nitrogen [Mass/Vol] 34 mg/dL High 7 - 25 mg/dL [facility] Urea nitrogen/Creatinine [Mass ratio] 29 mg/mg [facility] GLUCOSE POCon 08-06-2024 Glucose [Mass/Vol] 166 mg/dL 70 - 179 mg/dL [facility] Glucose [Mass/Vol] 106 mg/dL 70 - 179 mg/dL [facility] Glucose [Mass/Vol] 100 mg/dL 70 - 179 mg/dL [facility] POC Sample Type VENO [facility] Glucose [Mass/Vol] 219 mg/dL High 70 - 179 mg/dL [facility] Interpretation and review of laboratory results Abnormal [facility] Glucose [Mass/Vol] 249 mg/dL High 70 - 179 mg/dL [facility] Glucose [Mass/Vol] 178 mg/dL 70 - 179 mg/dL [facility] Glucose [Mass/Vol] 194 mg/dL High 70 - 179 mg/dL [facility] Glucose [Mass/Vol] 93 mg/dL 70 - 179 mg/dL [facility] POC Sample Type VENO [facility] IONIZED CALCIUM, WHOLE BLOOD Ordered By: Zuleika Blunt on 08-06-2024 Calcium.ionized (Bld) [Moles/Vol] 4.72 mg/dL 4.60 - 5.30 mg/dL [facility] Interpretation and review of laboratory results Normal [facility] MAGNESIUMon 08-06-2024 Magnesium [Mass/Vol] 1.8 mg/dL Normal 1.6-2.6 [facility] Comment on above: Performed By: #### M HILARIAM7 ####[facility] (DEFAULT)[address] [place] [address] Magnesium [Mass/Vol] 2.4 mg/dL 1.6 - 2 .6 mg/dL [facility] No Panel Informationon 08-06 POC Sample Type CAPBL [facility] Interpretation and review of laboratory results Abnormal [facility] POC Sample Type CAPBL [facility] Interpretation and review of laboratory results Normal [facility] PHOSPHATE, INORGANICon 08-06 Phosphate [Mass/Vol] 3.2 mg/dL 2.2 - 4 .6 mg/dL [facility] RF videography Hypopharynx a nd Esophagus Views W liquid and paste contrast PO during swallowingon 08-06-2024 RADIOLOGY RADIOLOGY [facility] Radiology Study observation (narrative) [facility] RF videography Hypopharynx a nd Esophagus Views W liquid and paste contrast PO during swallowingOrdered By: Gerry Resendez on 08-06-2024 [facility] Work Phone: SPEECH MODIFIED BARIUM SWALL OWon 08-06-2024 [facility] XR FLUORO MODIFIED BARIUM SW ALLOW [...] for specific therapeutic recommendations, please see the crystallography teacher report of the speech pathologist. Examination performed by ARCADIO Nicole, under the direct supervision of Gerry Resendez M.D., who was immediately available on site during the examination. I personally viewed and interpreted these images and I have reviewed and approved this report. Normal [facility] CBC,PLATELETSon 08-05-2024 Hematocrit (Bld) [Volume fraction] 44.0 % Normal 34.9-44.3 [facility] Comment on above: Performed By: #### B LDCULT #### [facility] (DEFAULT) [address] [address] Hemoglobin (Bld) [Mass/Vol] 13.9 g/dL Normal 11.4-15.2 [facility] Comment on above: Performed By: #### B LDCULT #### [facility] (DEFAULT) [address] [address] MCV (RBC) [Entitic vol] 92.2 fL Normal 79.6-97.7 [facility] Comment on above: Performed By: #### B LDCULT #### [facility] (DEFAULT) [address] [place] [address] Mean Cell Hgb 29.1 pg Normal 25.9-33.9 [facility] Comment on above: Performed By: #### B LDCULT #### [facility] (DEFAULT) [address] [place] [address] Mean Cell Hgb Conc 31.6 g/dL Normal 31.4-35.9 [facility] Comment on above: Performed By: #### B LDCULT #### [facility] (DEFAULT) [address] [place] [address] Platelet mean volume (Bld) [Entitic vol] 10.7 fL Normal 8.5-12.2 [facility] Comment on above: Performed By: #### B LDCULT #### [facility] (DEFAULT) [address] [address] Platelets (Bld) [#/Vol] 216 10*3/uL Normal 150-393 [facility] Comment on above: Performed By: #### B LDCULT #### [facility] (DEFAULT) [address] [address] RBC (Bld) [#/Vol] 4.77 10*6/uL Normal 3.91-5.04 [facility] Comment on above: Performed By: #### B LDCULT #### [facility] (DEFAULT) [address] [address] RBC Distribution 13.9 % Normal 10.8-14.9 [facility] Comment on above: Performed By: #### B LDCULT #### [facility] (DEFAULT) [address] [address] WBC (Bld) [#/Vol] 12.14 10*3/uL High 3.99-11.19 [facility] Comment on above: Performed By: #### B LDCULT #### [facility] (DEFAULT) [address] [place] [address] Erythrocyte distribution width (RBC) [Ratio] 13.9 % 10.8 - 14.9 % [facility] Hematocrit (Bld) [Volume fraction] 39.6 % 34.9 - 44.3 % [facility] Hemoglobin (Bld) [Mass/Vol] 12.6 g/dL 11.4 - 15.2 g/dL [facility] Interpretation and review of laboratory results Normal [facility] MCH (RBC) [Entitic mass] 29.3 pg 25.9 - 33.9 pg [facility] MCHC (RBC) [Mass/Vol] 31.8 g/dL 31.4 - 35.9 g/dL [facility] MCV (RBC) [Entitic vol] 92.1 fL 79.6 - 97.7 fL [facility] Platelet mean volume (Bld) [Entitic vol] 10.7 fL 8.5 - 12.2 fL [facility] Platelets (Bld) [#/Vol] 198 10*3/uL 150 - 393 K/uL [facility] RBC (Bld) [#/Vol] 4.3 10*6/uL [facility] WBC (Bld) [#/Vol] 10.61 10*3/uL 3.99 - 11.19 K/uL [facility] Hematocrit (Bld) [Volume fraction] 39.6 % Normal 34.9-44.3 [facility] Comment on above: Performed By: #### H [facility] ####[facility] (DEFAULT)[address] [place] [address] Hemoglobin (Bld) [Mass/Vol] 12.6 g/dL Normal 11.4-15.2 [facility] Comment on above: Performed By: #### [facility] ####[facility] (DEFAULT)[address] [place] [address] MCV (RBC) [Entitic vol] 92.1 fL Normal 79.6-97.7 [facility] Comment on above: Performed By: #### H EMOGC ####[facility] (DEFAULT)[address] [place] [address] Mean Cell Hgb 29.3 pg Normal 25.9-33.9 [facility] Comment on above: Performed By: #### H EMOGC ####[facility] (DEFAULT)[address] [place] [address] Mean Cell Hgb Conc 31.8 g/dL Normal 31.4-35.9 [facility] Comment on above: Performed By: #### H EMOGC ####[facility] (DEFAULT)[address] [place] [address] Platelet mean volume (Bld) [Entitic vol] 10.7 fL Normal 8.5-12.2 [facility] Comment on above: Performed By: #### H EMOGC ####[facility] (DEFAULT)[address] [place] [address] Platelets (Bld) [#/Vol] 198 10*3/uL Normal 150-393 [facility] Comment on above: Performed By: #### H EMOGC ####[facility] (DEFAULT)[address] [place] [address] RBC (Bld) [#/Vol] 4.30 10*6/uL Normal 3.91-5.04 [facility] Comment on above: Performed By: #### H EMOGC ####[facility] (DEFAULT)[address] [place] [address] RBC Distribution 13.9 % Normal 10.8-14.9 [facility] Comment on above: Performed By: #### H EMOGC ####[facility] (DEFAULT)[address] [place] [address] WBC (Bld) [#/Vol] 10.61 10*3/uL Normal 3.99-11.19 [facility] Comment on above: Performed By: #### H EMOBUSTER ####[facility] (DEFAULT)[address] [place] [address] CHEM 7 (LYTES,BUN,CREA,GLUC) on 08-05-2024 Anion gap [Moles/Vol] 14 mmol/L Normal 7-[address] [facility] Comment on above: Performed By: #### S URGP #### [facility] (DEFAULT) [address] [place] [address] Chloride [Moles/Vol] 107 mmol/L Normal 98-108 [facility] Comment on above: Performed By: #### S URGP #### [facility] (DEFAULT) [address] [place] [address] CO2 [Moles/Vol] 27 mmol/L Normal 21-31 [facility] Comment on above: Performed By: #### S URGP #### [facility] (DEFAULT) [address] [place] [address] Creatinine [Mass/Vol] 1.19 mg/dL Normal 0.50-1.[address] [facility] Comment on above: Performed By: #### S URGP #### [facility] [facility] (DEFAULT) [address] [place] [address] 46329 GFR/1.73 sq M.predicted among non-blacks MDRD (S/P/Bld) [Vol rate/Area] 47 mL/min/{1.73_m2} Low >=60 [facility] Comment on above: Result Comment: Repo rted eGFR is based on the CKD-EPI 2020 equation using creatinine, age, and sex. Performed By: #### S URGP #### [facility] (DEFAULT) [address] [place] [address] 51316 Glucose [Mass/Vol] 88 mg/dL Normal Nonfastin -179 mg/dL; Fastin-99 [facility] Comment on above: Performed By: #### S URGP #### [facility] (DEFAULT) [address] [place] [address] 17867 Osmolality [Osmolality] 307 mosm/kg High 278-305 [facility] Comment on above: Performed By: #### S URGP #### [facility] (DEFAULT) [address] [place] [address] 19898 Potassium [Moles/Vol] 3.9 mmol/L Normal 3.5-5.[address] [facility] Comment on above: Performed By: #### S URGP #### [facility] (DEFAULT) [address] [place] [address] 33181 Sodium [Moles/Vol] 144 mmol/L Normal 135-145 [facility] Comment on above: Performed By: #### S URGP #### [facility] (DEFAULT) [address] [place] [address] 40799 Urea nitrogen [Mass/Vol] 34 mg/dL High 7-25 [facility] Comment on above: Performed By: #### S URGP #### [facility] (DEFAULT) [address] [place] [address] 29019 Urea nitrogen/Creatinine [Mass ratio] 29 mg/mg Normal [facility] Comment on above: Performed By: #### S URGP #### [facility] (DEFAULT) [address] [place] [address] 92696 Anion gap [Moles/Vol] 14 mmol/L 7 - 17 mmol/L [facility] Chloride [Moles/Vol] 108 mmol/L 98 - 10 8 mmol/L [facility] CO2 [Moles/Vol] 25 mmol/L 21 - 31 mmol/L [facility] Creatinine [Mass/Vol] 1.45 mg/dL High 0.50 - 1.20 mg/dL [facility] eGFR, CKD-EPI, Female 37 Low - PINF [facility] Glucose [Mass/Vol] 242 mg/dL High 70 - 179 mg/dL [facility] Interpretation and review of laboratory results Abnormal [facility] Osmolality Calc [Osmolality] 315 High [facility] Potassium [Moles/Vol] 3.8 mmol/L 3.5 - 5.0 mmol/L [facility] Sodium [Moles/Vol] 143 mmol/L 135 - 145 mmol/L [facility] Urea nitrogen [Mass/Vol] 35 mg/dL High 7 - 25 mg/dL [facility] Urea nitrogen/Creatinine [Mass ratio] 24 mg/mg [facility] Anion gap [Moles/Vol] 14 mmol/L Normal 7-[address] [facility] Comment on above: Performed By: #### X M #### [facility] (DEFAULT) [address] [place] [address] 70341 Chloride [Moles/Vol] 108 mmol/L Normal 98-108 [facility] Comment on above: Performed By: #### X M #### [facility] (DEFAULT) [address] [place] [address] 61177 CO2 [Moles/Vol] 25 mmol/L Normal 21-31 [facility] Comment on above: Performed By: #### X M #### [facility] (DEFAULT) [address] [place] [address] 61095 Creatinine [Mass/Vol] 1.45 mg/dL High 0.50-1.[address] [facility] Comment on above: Performed By: #### X M #### [facility] (DEFAULT) [address] [place] [address] 79581 GFR/1.73 sq M.predicted among non-blacks MDRD (S/P/Bld) [Vol rate/Area] 37 mL/min/{1.73_m2} Low >=60 [facility] Comment on above: Result Comment: Repo rted eGFR is based on the CKD-EPI 2020 equation using creatinine, age, and sex. Performed By: #### X M #### [facility] (DEFAULT) [address] [place] [address] 47080 Glucose [Mass/Vol] 242 mg/dL High Nonfastin -179 mg/dL; Fastin-99 [facility] Comment on above: Performed By: #### X M #### [facility] (DEFAULT) [address] [place] [address] 99709 Osmolality [Osmolality] 315 mosm/kg High 278-305 [facility] Comment on above: Performed By: #### X M #### [facility] (DEFAULT) [address] [place] [address] Potassium [Moles/Vol] 3.8 mmol/L Normal 3.5-5.[address] [facility] Comment on above: Performed By: #### X M #### [facility] (DEFAULT) [address] [place] [address] 11442 Sodium [Moles/Vol] 143 mmol/L Normal 135-145 [facility] Comment on above: Performed By: #### X M #### [facility] (DEFAULT) [address] [place] [address] 89994 Urea nitrogen [Mass/Vol] 35 mg/dL High 7-25 [facility] Comment on above: Performed By: #### X M #### [facility] (DEFAULT) [address] [place] [address] 90087 Urea nitrogen/Creatinine [Mass ratio] 24 mg/mg Normal [facility] Comment on above: Performed By: #### X M #### [facility] (DEFAULT) [address] [place] [address] 58777 Cardiac echo study Procedure Ordered By: Ezequiel Figueroa on 08-05-2024 Ao ASC index 1.56 cm/m2 [facility] Work Phone: [phone] Ao peak fidel 1.23 m/s [facility] Work Phone: Ao SOV index 1.56 cm/m2 [facility] Work Phone: Ao STJ index 1.36 cm/m2 [facility] Work Phone: Ao VTI 24.81 cm [facility] Work Phone: [phone] Ascending aorta 2.97 cm [facility] Work Phone: [phone] AV LVOT peak gradient 4 mmHg [facility] Work Phone: [phone] AV mean gradient 4 mmHg [facility] Work Phone: [phone] AV peak gradient 6 [facility] Work Phone: [phone] AV valve area 2.72 cm2 [facility] Work Phone: [phone] AV Velocity Ratio 0.8 [facility] Work Phone: [phone] MARKUS (continuity Vmax) 2.55 cm2 [facility] Work Phone: [phone] MARKUS (continuity VTI) 2.72 cm2 [facility] Work Phone: [phone] MARKUS index (continuity Vmax) 1.34 m/s [facility] Work Phone: [phone] MARKUS index (continuity VTI) 1.43 cm2/m2 [facility] Work Phone: [phone] Avg e' pk fidel 0.09 m/s [facility] Work Phone: [phone] Body surface area Derived from formula 1.9 m2 [facility] Work Phone: [phone] BP EF 55 % [facility] Work Phone: [phone] DI (Vmax) 0.8 [facility] Work Phone: [phone] DI (VTI) 0.86 m/2 [facility] Work Phone: [phone] e' lateral pk fidel 0.0845 m/s [facility] Work Phone: [phone] e' lateral pk fidel 0.08 m/s [facility] Work Phone: [phone] e' septal pk fidel 0.0953 m/s [facility] Work Phone: [phone] e' septal pk fidel 0.1 m/s [facility] Work Phone: [phone] EF SP 2CH 56 [facility] Work Phone: [phone] EF SP 4CH 51 [facility] Work Phone: [phone] EST RAP 3 mmHg [facility] Work Phone: [phone] EST RVSP 29 mmHg [facility] Work Phone: [phone] FS 31 % [facility] Work Phone: [phone] IVC ostium 1.64 cm [facility] Work Phone: [phone] IVS 1.14 cm [facility] Work Phone: [phone] LA area 4CH 29.07 cm2 [facility] Work Phone: [phone] LA ESV BP (MOD) 86 mL [facility] Work Phone: [phone] LA ESV BP (MOD) index 45 mL/m2 [facility] Work Phone: [phone] LA ESV SP 2CH (MOD) 81 mL [facility] Work Phone: [phone] LA ESV SP 4CH (MOD) 93 mL [facility] Work Phone: [phone] LV EDV BP 88 mL [facility] Work Phone: [phone] LV EDV SP 2CH 85 mL [facility] Work Phone: [phone] LV EDV SP 4CH 86 mL [facility] Work Phone: [phone] LV ESV BP 40 mL [facility] Work Phone: [phone] LV ESV SP 2CH 37 mL [facility] Work Phone: [phone] LV ESV SP 4CH 42 mL [facility] Work Phone: [phone] LV mass 146.48 g [facility] Work Phone: [phone] LV Mass Index 77.1 g/m2 [facility] Work Phone: [phone] LV RWT 0.56 [facility] Work Phone: [phone] LV stroke volume BP (ml) 48 mL [facility] Work Phone: [phone] LV stroke volume index BP 25.26 mL/m2 [facility] Work Phone: [phone] LVIDD 3.93 cm [facility] Work Phone: [phone] LVIDS 2.7 cm [facility] Work Phone: [phone] LVOT area 3.17 cm2 [facility] Work Phone: [phone] LVOT diameter 2.01 cm [facility] Work Phone: [phone] LVOT peak fidel 0.99 m/s [facility] Work Phone: [phone] LVOT peak VTI 21.3 cm [facility] Work Phone: [phone] LVOT stroke volume 68 cm3 [facility] Work Phone: [phone] LVOT stroke volume index 35.55 ml/m2 [facility] Work Phone: [phone] MV mean gradient 3 mmHg [facility] Work Phone: [phone] MV peak gradient 6 mmHg [facility] Work Phone: [phone] MV valve area by continuity eq 2.61 cm2 [facility] Work Phone: [phone] MV VTI 25.92 cm [facility] Work Phone: [phone] MVA (continuity VTI) 2.6 cm [facility] Work Phone: [phone] [facility] AV VTI RATIO PRE STRESS 0.86 [facility] Work Phone: OSU ECHO LV BIPLANE SYSTOLIC VOLUME INDEX 21.05 mL/m2 [facility] Work Phone: OSU ECHO LV BP DIASTOLIC VOLUME INDEX 46.32 mL/m2 [facility] Work Phone: PV mean gradient 3 mmHg [facility] Work Phone: [phone] PV peak gradient 6 mmHg [facility] Work Phone: [phone] PV PK FIDEL 1.23 m/s [facility] Work Phone: PW 1.11 cm [facility] Work Phone: RA area 4CH (MOD) 22.74 cm2 [facility] Work Phone: RA vol index 4CH (MOD) 36.32 mL/m2 [facility] Work Phone: Right atrium volume 4 chamber method of disks 69 mL [facility] Work Phone: RV Area diastolic 17.5 cm2 [facility] Work Phone: RV Area systolic 11.9 cm2 [facility] Work Phone: RV basal diam 4.56 cm [facility] Work Phone: RV Fractional area change 32 % [facility] Work Phone: RV long diam 6.91 cm [facility] Work Phone: RV mid diam 2.91 cm [facility] Work Phone: RV S' 12.81 cm/s [facility] Work Phone: RVOT peak gradient 5 mmHg [facility] Work Phone: RVOT peak fidel 1.07 m/s [facility] Work Phone: RVOT peak VTI 20.1 cm [facility] Work Phone: Sinus 2.97 cm [facility] Work Phone: STJ 2.58 cm [facility] Work Phone: Stroke Volume 68 cm/mL [facility] Work Phone: [phone] Stroke volume index 36 [facility] Work Phone: TAPSE 2.08 cm [facility] Work Phone: TR pk grad 26 mmHg [facility] Work Phone: TR pk fidel 2.53 m/s [facility] Work Phone: [facility] Work Phone: Cardiac echo study Procedure on 08-05-2024 [facility] Radiology Study observation (narrative) [facility] ECHOCARDIOGRAMon 08-05-2024 Echocardiography ? No prior study [...] from the original result were not included. [facility] Facility [facility] Patient Information Patient Name Lindsay Acuna [...] Role Read Date Ezequiel Figueroa DO Echo [place] 08/05/2024 Left Heart Measurements LV - Systole [...] long di (more content not included)... Normal [facility] GLUCOSE POCon 08-05-2024 Glucose [Mass/Vol] 228 mg/dL High 70 - 179 mg/dL [facility] Interpretation and review of laboratory results Abnormal [facility] POC Sample Type CAPBL [facility] IONIZED CALCIUM, WHOLE BLOOD on 08-05-2024 ICA 4.72 mg/dL Normal 4.60-5.30 [facility] Comment on above: Performed By: #### S URGP #### [facility] (DEFAULT) [address] [place] [address] ICA 4.69 mg/dL Normal 4.60-5.30 [facility] Comment on above: Performed By: #### S URGP #### [facility] (DEFAULT) [address] [place] [address] 59485 IONIZED CALCIUM, WHOLE BLOOD Ordered By: Jairo Layton on 08-05-2024 Calcium.ionized (Bld) [Moles/Vol] 4.69 mg/dL 4.60 - 5.30 mg/dL [facility] Interpretation and review of laboratory results Normal [facility] MAGNESIUMon 08-05-2024 Magnesium [Mass/Vol] 2.4 mg/dL Normal 1.6-2.6 [facility] Comment on above: Performed By: #### S URGP #### [facility] (DEFAULT) [address] [place] [address] 27608 Magnesium [Mass/Vol] 1.8 mg/dL 1.6 - 2 .6 mg/dL [facility] Magnesium [Mass/Vol] 1.8 mg/dL Normal 1.6-2.6 [facility] Comment on above: Performed By: #### X M #### [facility] (DEFAULT) [address] [place] [address] 00002 No Panel Informationon 08-05 Interpretation and review of laboratory results Normal [facility] PHOSPHATE, INORGANICon 08-05 Phosphorous 3.2 mg/dL Normal 2.2-4.6 [facility] Comment on above: Performed By: #### S URGP #### [facility] (DEFAULT) [address] [place] [address] 53537 Phosphate [Mass/Vol] 2.7 mg/dL 2.2 - 4 .6 mg/dL [facility] Phosphorous 2.7 mg/dL Normal 2.2-4.6 [facility] Comment on above: Performed By: #### X M #### [facility] (DEFAULT) [address] [place] [address] 58030 VON WILLEBRAND FACTOR AGOrde red By: Madhavi Mcelroy on 08-05-2024 Interpretation and review of laboratory results Abnormal [facility] vWf Ag actual/normal IA (PPP) [Relative mass conc] 230 % High 50 - 180 % [facility] CBC,PLATELETSon 08-04-2024 Erythrocyte distribution width (RBC) [Ratio] 13.7 % 10.8 - 14.9 % [facility] Hematocrit (Bld) [Volume fraction] 40.8 % 34.9 - 44.3 % [facility] Hemoglobin (Bld) [Mass/Vol] 12.7 g/dL 11.4 - 15.2 g/dL [facility] Interpretation and review of laboratory results Abnormal [facility] MCH (RBC) [Entitic mass] 28.7 pg 25.9 - 33.9 pg [facility] MCHC (RBC) [Mass/Vol] 31.1 g/dL Low 31.4 - 35.9 g/dL [facility] MCV (RBC) [Entitic vol] 92.1 fL 79.6 - 97.7 fL [facility] Platelet mean volume (Bld) [Entitic vol] 10.8 fL 8.5 - 12.2 fL [facility] Platelets (Bld) [#/Vol] 228 10*3/uL 150 - 393 K/uL [facility] RBC (Bld) [#/Vol] 4.43 10*6/uL [facility] WBC (Bld) [#/Vol] 11.41 10*3/uL High 3.99 - 11.19 K/uL [facility] Hematocrit (Bld) [Volume fraction] 40.8 % Normal 34.9-44.3 [facility] Comment on above: Performed By: #### H [facility] #### [facility] (DEFAULT) [address] [place] [address] Hemoglobin (Bld) [Mass/Vol] 12.7 g/dL Normal 11.4-15.2 [facility] Comment on above: Performed By: #### H EMOGC #### [facility] (DEFAULT) [address] [address] MCV (RBC) [Entitic vol] 92.1 fL Normal 79.6-97.7 [facility] Comment on above: Performed By: #### H EMOGC #### [facility] (DEFAULT) [address] [address] Mean Cell Hgb 28.7 pg Normal 25.9-33.9 [facility] Comment on above: Performed By: #### H EMOGC #### [facility] (DEFAULT) [address] [address] Mean Cell Hgb Conc 31.1 g/dL Low 31.4-35.9 [facility] Comment on above: Performed By: #### H EMOGC #### [facility] (DEFAULT) [address] [address] Platelet mean volume (Bld) [Entitic vol] 10.8 fL Normal 8.5-12.2 [facility] Comment on above: Performed By: #### H EMOGC #### [facility] (DEFAULT) [address] [address] Platelets (Bld) [#/Vol] 228 10*3/uL Normal 150-393 [facility] Comment on above: Performed By: #### H EMOGC #### [facility] (DEFAULT) [address] [address] RBC (Bld) [#/Vol] 4.43 10*6/uL Normal 3.91-5.04 [facility] Comment on above: Performed By: #### H EMOGC #### [facility] (DEFAULT) [address] [address] RBC Distribution 13.7 % Normal 10.8-14.9 [facility] Comment on above: Performed By: #### H EMOGC #### [facility] (DEFAULT) [address] [place] [address] WBC (Bld) [#/Vol] 11.41 10*3/uL High 3.99-11.19 [facility] Comment on above: Performed By: #### H EMO #### [facility] [address] [place] [address] CHEM 7 (LYTES,BUN,CREA,GLUC) Ordered By: Lizette Canseco on 08-04-2024 Anion gap [Moles/Vol] 16 mmol/L 7 - 17 mmol/L [facility] Chloride [Moles/Vol] 109 mmol/L High 98 - 10 8 mmol/L [facility] CO2 [Moles/Vol] 24 mmol/L 21 - 31 mmol/L [facility] Creatinine [Mass/Vol] 1.47 mg/dL High 0.50 - 1.20 mg/dL [facility] eGFR, CKD-EPI, Female 36 Low - PINF [facility] Glucose [Mass/Vol] 181 mg/dL High 70 - 179 mg/dL [facility] Interpretation and review of laboratory results Abnormal [facility] Osmolality Calc [Osmolality] 312 High [facility] Potassium [Moles/Vol] 4 mmol/L 3.5 - 5.0 mmol/L [facility] Sodium [Moles/Vol] 145 mmol/L 135 - 145 mmol/L [facility] Urea nitrogen [Mass/Vol] 26 mg/dL High 7 - 25 mg/dL [facility] Urea nitrogen/Creatinine [Mass ratio] 18 mg[facility] CHEM 7 (LYTES,BUN,CREA,GLUC) on 08-04-2024 Anion gap [Moles/Vol] 16 mmol/L Normal 7-[address] [facility] Comment on above: Performed By: #### S URGP #### [facility] (DEFAULT) [address] [place] [address] Chloride [Moles/Vol] 109 mmol/L High 98-108 [facility] Comment on above: Performed By: #### S URGP #### [facility] (DEFAULT) [address] [place] [address] 60038 CO2 [Moles/Vol] 24 mmol/L Normal 21-31 [facility] Comment on above: Performed By: #### S URGP #### [facility] (DEFAULT) [address] [place] [address] 66199 Creatinine [Mass/Vol] 1.47 mg/dL High 0.50-1.[address] [facility] Comment on above: Performed By: #### S URGP #### [facility] (DEFAULT) [address] [place] [address] 41052 GFR/1.73 sq M.predicted among non-blacks MDRD (S/P/Bld) [Vol rate/Area] 36 mL/min/{1.73_m2} Low >=60 [facility] Comment on above: Result Comment: Repo rted eGFR is based on the CKD-EPI 2020 equation using creatinine, age, and sex. Performed By: #### S URGP #### [facility] (DEFAULT) [address] [place] [address] 89697 Glucose [Mass/Vol] 181 mg/dL High Nonfastin -179 mg/dL; Fastin-99 [facility] Comment on above: Performed By: #### S URGP #### [facility] (DEFAULT) [address] [place] [address] 30372 Osmolality [Osmolality] 312 mosm/kg High 278-305 [facility] Comment on above: Performed By: #### S URGP #### [facility] (DEFAULT) [address] [place] [address] 50941 Potassium [Moles/Vol] 4.0 mmol/L Normal 3.5-5.[address] [facility] Comment on above: Performed By: #### S URGP #### [facility] (DEFAULT) [address] [place] [address] 20974 Sodium [Moles/Vol] 145 mmol/L Normal 135-145 [facility] Comment on above: Performed By: #### S URGP #### [facility] (DEFAULT) [address] [place] [address] Urea nitrogen [Mass/Vol] 26 mg/dL High 7-25 [facility] Comment on above: Performed By: #### S URGP #### [facility] (DEFAULT) [address] [place] [address] Urea nitrogen/Creatinine [Mass ratio] 18 mg/mg Normal [facility] Comment on above: Performed By: #### S URGP #### [facility] (DEFAULT) [address] [place] [address] CT HEAD WITHOUT CONTRASTon 0 08-04-2024 CT [...] sinuses are clear. IMPRESSION: Stable exam. Normal [facility] CT Head WO contraston 2024 RADIOLOGY RADIOLOGY [facility] CT Head WO contrastOrdered B y: Chirag Mendenhall on 08-04-2024 [facility] Work Phone: GLUCOSE POCon 08-04-2024 Glucose [Mass/Vol] 227 mg/dL High 70 - 179 mg/dL [facility] Interpretation and review of laboratory results Abnormal [facility] POC Sample Type [facility] Glucose [Mass/Vol] 235 mg/dL High 70 - 179 mg/dL [facility] Interpretation and review of laboratory results Abnormal [facility] POC Sample Type VENO [facility] Glucose [Mass/Vol] 215 mg/dL High 70 - 179 mg/dL [facility] Interpretation and review of laboratory results Abnormal [facility] POC Sample Type CAPBL [facility] Glucose [Mass/Vol] 178 mg/dL 70 - 179 mg/dL [facility] Glucose [Mass/Vol] 157 mg/dL 70 - 179 mg/dL [facility] Glucose [Mass/Vol] 271 mg/dL High 70 - 179 mg/dL [facility] Glucose [Mass/Vol] 267 mg/dL High 70 - 179 mg/dL [facility] Glucose [Mass/Vol] 246 mg/dL High 70 - 179 mg/dL [facility] IONIZED CALCIUM, WHOLE BLOOD Ordered By: Laura Rodriguez on 08-04-2024 Calcium.ionized (Bld) [Moles/Vol] 4.8 mg/dL 4.60 - 5.30 mg/dL [facility] Interpretation and review of laboratory results Normal [facility] IONIZED CALCIUM, WHOLE BLOOD on 08-04-2024 ICA 4.80 mg/dL Normal 4.60-5.30 [facility] Comment on above: Performed By: #### T YPEC #### [facility] (DEFAULT) [address] [place] [id number] MAGNESIUMon 08-04-2024 Magnesium [Mass/Vol] 1.9 mg/dL 1.6 - 2 .6 mg/dL [facility] Magnesium [Mass/Vol] 1.9 mg/dL Normal 1.6-2.6 [facility] Comment on above: Performed By: #### X M #### [facility] (DEFAULT) [address] [address] No Panel Informationon 08-04 POC Sample Type CAPBL [facility] Interpretation and review of laboratory results Abnormal [facility] Interpretation and review of laboratory results Normal [facility] PHOSPHATE, INORGANICon 08-04 Phosphate [Mass/Vol] 2.8 mg/dL 2.2 - 4 .6 mg/dL [facility] Phosphorous 2.8 mg/dL Normal 2.2-4.6 [facility] Comment on above: Performed By: #### X M #### [facility] (DEFAULT) [address] [place] [address] SODIUMon 08-04-2024 Interpretation and review of laboratory results Normal [facility] Sodium [Moles/Vol] 142 mmol/L 135 - 145 mmol/L [facility] Sodium [Moles/Vol] 142 mmol/L Normal 135-145 [facility] Comment on above: Order Comment: While on 3% Hypertonic Saline. Performed By: #### S URGP #### [facility] (DEFAULT) [address] [place] [address] Interpretation and review of laboratory results Normal [facility] Sodium [Moles/Vol] 141 mmol/L 135 - 145 mmol/L [facility] Sodium [Moles/Vol] 141 mmol/L Normal 135-145 [facility] Comment on above: Order Comment: 2 Bot [...] bottle. Performed By: #### B LDCULT #### [facility] (DEFAULT) [address] [place] [address] Interpretation and review of laboratory results Normal [facility] Sodium [Moles/Vol] 143 mmol/L 135 - 145 mmol/L [facility] Sodium [Moles/Vol] 143 mmol/L Normal 135-145 [facility] Comment on above: Order Comment: While on 3% Hypertonic Saline. Performed By: #### [facility] #### [facility] (DEFAULT) [address] [place] [address] ABORH TYPE RECONFIRMATIONon 08-03-2024 ABO/RH(D) TYPE Negative [facility] ABO/RH(D) TYPE Negative Normal [facility] Comment on above: Performed By: #### T YPEC #### [facility] (DEFAULT) [address] [place] [address] CBC,PLATELETSon 08-03-2024 Erythrocyte distribution width (RBC) [Ratio] 13.2 % 10.8 - 14.9 % [facility] Hematocrit (Bld) [Volume fraction] 42.8 % 34.9 - 44.3 % [facility] Hemoglobin (Bld) [Mass/Vol] 13.5 g/dL 11.4 - 15.2 g/dL [facility] Interpretation and review of laboratory results Normal [facility] MCH (RBC) [Entitic mass] 29.2 pg 25.9 - 33.9 pg [facility] MCHC (RBC) [Mass/Vol] 31.5 g/dL 31.4 - 35.9 g/dL [facility] MCV (RBC) [Entitic vol] 92.4 fL 79.6 - 97.7 fL [facility] Platelet mean volume (Bld) [Entitic vol] 11.2 fL 8.5 - 12.2 fL [facility] Platelets (Bld) [#/Vol] 227 10*3/uL 150 - 393 K/uL [facility] RBC (Bld) [#/Vol] 4.63 10*6/uL [facility] WBC (Bld) [#/Vol] 8.43 10*3/uL 3.99 - 11.19 K/uL [facility] Hematocrit (Bld) [Volume fraction] 42.8 % Normal 34.9-44.3 [facility] Comment on above: Performed By: #### X M #### [facility] (DEFAULT) [address] [address] Hemoglobin (Bld) [Mass/Vol] 13.5 g/dL Normal 11.4-15.2 [facility] Comment on above: Performed By: #### X M #### [facility] (DEFAULT) [address] [address] MCV (RBC) [Entitic vol] 92.4 fL Normal 79.6-97.7 [facility] Comment on above: Performed By: #### X M #### [facility] (DEFAULT) [address] [address] Mean Cell Hgb 29.2 pg Normal 25.9-33.9 [facility] Comment on above: Performed By: #### X M #### [facility] (DEFAULT) [address] [address] Mean Cell Hgb Conc 31.5 g/dL Normal 31.4-35.9 [facility] Comment on above: Performed By: #### X M #### [facility] (DEFAULT) [address] [address] Platelet mean volume (Bld) [Entitic vol] 11.2 fL Normal 8.5-12.2 [facility] Comment on above: Performed By: #### X M #### [facility] (DEFAULT) [address] [place] [address] Platelets (Bld) [#/Vol] 227 10*3/uL Normal 150-393 [facility] Comment on above: Performed By: #### X M #### [facility] (DEFAULT) [address] [place] [address] RBC (Bld) [#/Vol] 4.63 10*6/uL Normal 3.91-5.04 [facility] Comment on above: Performed By: #### X M #### [facility] (DEFAULT) [address] [place] [address] RBC Distribution 13.2 % Normal 10.8-14.9 [facility] Comment on above: Performed By: #### X M #### [facility] (DEFAULT) [address] [place] [address] WBC (Bld) [#/Vol] 8.43 10*3/uL Normal 3.99-11.19 [facility] Comment on above: Performed By: #### X M #### [facility] (DEFAULT) [address] [place] [address] CHEM 7 (LYTES,BUN,CREA,GLUC) on 08-03-2024 Anion gap [Moles/Vol] 16 mmol/L 7 - 17 mmol/L [facility] Chloride [Moles/Vol] 103 mmol/L 98 - 10 8 mmol/L [facility] CO2 [Moles/Vol] 23 mmol/L 21 - 31 mmol/L [facility] Creatinine [Mass/Vol] 1.35 mg/dL High 0.50 - 1.20 mg/dL [facility] eGFR, CKD-EPI, Female 40 Low - PINF [facility] Glucose [Mass/Vol] 151 mg/dL 70 - 179 mg/dL [facility] Interpretation and review of laboratory results Abnormal [facility] Osmolality Calc [Osmolality] 295 [facility] Potassium [Moles/Vol] 4.3 mmol/L 3.5 - 5.0 mmol/L [facility] Sodium [Moles/Vol] 138 mmol/L 135 - 145 mmol/L [facility] Urea nitrogen [Mass/Vol] 18 mg/dL 7 - 25 mg/dL [facility] Urea nitrogen/Creatinine [Mass ratio] 13 mg/mg [facility] Anion gap [Moles/Vol] 16 mmol/L Normal 7-[address] [facility] Comment on above: Performed By: #### S URGP #### [facility] (DEFAULT) [address] [place] [address] Chloride [Moles/Vol] 103 mmol/L Normal 98-108 [facility] Comment on above: Performed By: #### S URGP #### [facility] (DEFAULT) [address] [place] [address] CO2 [Moles/Vol] 23 mmol/L Normal 21-31 [facility] Comment on above: Performed By: #### S URGP #### [facility] (DEFAULT) [address] [place] [address] Creatinine [Mass/Vol] 1.35 mg/dL High 0.50-1.[address] [facility] Comment on above: Performed By: #### S URGP #### [facility] (DEFAULT) [address] [place] [address] GFR/1.73 sq M.predicted among non-blacks MDRD (S/P/Bld) [Vol rate/Area] 40 mL/min/{1.73_m2} Low >=60 [facility] Comment on above: Result Comment: Repo rted eGFR is based on the CKD-EPI 2020 equation using creatinine, age, and sex. Performed By: #### S URGP #### [facility] (DEFAULT) [address] [place] [address] Glucose [Mass/Vol] 151 mg/dL Normal Nonfastin -179 mg/dL; Fastin-99 [facility] Comment on above: Performed By: #### S URGP #### [facility] (DEFAULT) [address] [place] [address] Osmolality [Osmolality] 295 mosm/kg Normal 278-305 [facility] Comment on above: Performed By: #### S URGP #### [facility] (DEFAULT) [address] [place] [address] Potassium [Moles/Vol] 4.3 mmol/L Normal 3.5-5.[address] [facility] Comment on above: Result Comment: Spec imen slightly hemolyzed. Potassium results may be falsey elevated by more than 0.5 mmol/L. Consider recollection. Performed By: #### S URGP #### [facility] (DEFAULT) [address] [place] [address] Sodium [Moles/Vol] 138 mmol/L Normal 135-145 [facility] Comment on above: Performed By: #### S URGP #### [facility] (DEFAULT) [address] [place] [address] Urea nitrogen [Mass/Vol] 18 mg/dL Normal 7-25 [facility] Comment on above: Performed By: #### S URGP #### [facility] (DEFAULT) [address] [place] [address] Urea nitrogen/Creatinine [Mass ratio] 13 mg/mg Normal [facility] Comment on above: Performed By: #### S URGP #### [facility] (DEFAULT) [address] [place] [address] CHEST WITH CONTRAST VASCU LAR TRAUMAon [...] have reviewed and approved this report. Normal [facility] CT Cervical spine WO contras ton 08-03-2024 RADIOLOGY RADIOLOGY [facility] CT Cervical spine WO contras tOrdered By: Alissa Chun on 08-03-2024 [facility] Work Phone: CT Chest W contrast Seth RADIOLOGY RADIOLOGY [facility] CT Chest W contrast IVOrdere d By: Kayla Newell on 08-03-2024 [facility] Work Phone: CT HEAD WITHOUT [...] since the MRI from earlier today Normal [facility] CT Head WO contraston 2024 Radiology Study observation (narrative) [facility] RADIOLOGY RADIOLOGY [facility] Radiology Study observation (narrative) [facility] CT ORBITS WITHOUT CONTRASTon 08-03-2024 CT ORBITS [...] basal ganglia hyperdensity concerning for hemorrhage. Normal [facility] CT Orbit WO contraston 08-03 RADIOLOGY RADIOLOGY [facility] CT SPINE CERVICAL WITHOUT CO NTRASTon [...] No evidence of acute fractures identified Normal [facility] EXTRA MICROon 08-03-2024 [facility] GLUCOSE POCon 08-03-2024 Glucose [Mass/Vol] 161 mg/dL 70 - 179 mg/dL [facility] POC Sample Type CAPBL [facility] IONIZED CALCIUM, WHOLE BLOOD Ordered By: Alejandra Ness on 08-03-2024 Calcium.ionized (Bld) [Moles/Vol] 4.24 mg/dL Low 4.60 - 5.30 mg/dL [facility] Interpretation and review of laboratory results Abnormal [facility] IONIZED CALCIUM, WHOLE BLOOD on 08-03-2024 ICA 4.24 mg/dL Low 4.60-5.30 [facility] Comment on above: Performed By: #### [facility] #### [facility] (DEFAULT) [address] [place] [address] MAGNESIUMon 08-03-2024 Magnesium [Mass/Vol] 2.1 mg/dL 1.6 - 2 .6 mg/dL [facility] Magnesium [Mass/Vol] 2.1 mg/dL Normal 1.6-2.6 [facility] Comment on above: Performed By: #### S URGP #### [facility] (DEFAULT) [address] [place] [address] MR Brain WO contraston 08-03 RADIOLOGY RADIOLOGY [facility] Radiology Study observation (narrative) [facility] MR Cervical spine WO contras ton 08-03-2024 RADIOLOGY RADIOLOGY [facility] Radiology Study observation (narrative) [facility] MR Cervical spine WO contras tOrdered By: Kuldeep Tavares on 08-03-2024 [facility] Work Phone: MRI BRAIN WITHOUT [...] tiny 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 Normal [facility] MRI SPINE CERVICAL WITHOUT C ONTRASTon [...] have reviewed and approved this report. Normal [facility] NT-PRO B-TYPE NATRIURETIC PE PTIDEon 08-03-2024 Interpretation and review of laboratory results Abnormal [facility] Natriuretic peptide.B prohormone N-Terminal IA [Mass/Vol] 1115 pg/mL High NINF - 540 pg/mL [facility] No Panel Informationon 08-03 RADIOLOGY RADIOLOGY [facility] Interpretation and review of laboratory results Normal [facility] No Panel InformationOrdered By: Richard Sánchez on 08-03-2024 [facility] Work Phone: PHOSPHATE, INORGANICon 08-03 Phosphate [Mass/Vol] 3.5 mg/dL 2.2 - 4 .6 mg/dL [facility] Phosphorous 3.5 mg/dL Normal 2.2-4.6 [facility] Comment on above: Performed By: #### S URGP #### [facility] (DEFAULT) [address] [place] [address] SCREEN: MRSA/MSSAOrdered By: Gail Collado on 08-03-2024 Interpretation and review of laboratory results Normal [facility] Methicillin Resistant S. Aureus By Pcr Negative Negative [facility] Staphylococcus Aureus By Pcr Negative Negative [facility] SODIUMon 08-03-2024 Interpretation and review of laboratory results Normal [facility] Sodium [Moles/Vol] 139 mmol/L 135 - 145 mmol/L [facility] Sodium [Moles/Vol] 139 mmol/L Normal 135-145 [facility] Comment on above: Order Comment: While on 3% Hypertonic Saline. Performed By: #### N AO ####[facility] (DEFAULT)[address] [place] [address] Interpretation and review of laboratory results Abnormal [facility] Sodium [Moles/Vol] 134 mmol/L Low 135 - 145 mmol/L [facility] Sodium [Moles/Vol] 134 mmol/L Low 135-145 [facility] Comment on above: Order Comment: While on 3% Hypertonic Saline. Performed By: #### [facility] #### [facility] (DEFAULT) [address] [place], [place] [address] XR ABDOMEN 1 VIEW PORTABLEon 08-03-2024 XR [...] proximal second portion of the duodenum. Normal [facility] XR Abdomen Single viewon RADIOLOGY RADIOLOGY [facility] Radiology Study observation (narrative) [facility] XR Abdomen Single viewOrdere d By: Huey Gibson on 08-03-2024 [facility] XR ELBOW RIGHT 2 VIEWSon XR ELBOW RIGHT 2 VIEWS EXAM: XR ELBOW RI GHT 2 VIEWS, XR HUMERUS RIGHT 2+ VIEWS, XR WRIST RIGHT 3+ VIEWS, 08/02/2024 23:24 PM (accession [id number]), 08/02/2024 23:24 PM (accession [id number]), 08/02/2024 23:23 PM (accession [id number]) COMPARISON: No prior studies available for comparison. [...] dislocation. IMPRESSION: No acute osseous abnormality. Normal [facility] XR HUMERUS RIGHT 2+ VIEWSon 08-03-2024 XR HUMERUS RIGHT 2+ VIEWS EXAM: XR ELBOW RIGHT 2 VIEWS, XR HUMERUS RIGHT 2+ VIEWS, XR WRIST RIGHT 3+ VIEWS, 08/02/2024 23:24 PM (accession [id number]), 08/02/2024 23:24 PM (accession [id number]), 08/02/2024 23:23 PM (accession [id number]) COMPARISON: No prior studies available for comparison. [...] dislocation. IMPRESSION: No acute osseous abnormality. Normal [facility] XR WRIST RIGHT 3+ VIEWSon XR WRIST RIGHT 3+ VIEWS EXAM: XR ELBOW R IGHT 2 VIEWS, XR HUMERUS RIGHT 2+ VIEWS, XR WRIST RIGHT 3+ VIEWS, 08/02/2024 23:24 PM (accession [id number]), 08/02/2024 23:24 PM (accession [id number]), 08/02/2024 23:23 PM (accession [id number]) COMPARISON: No prior studies available for comparison. [...] dislocation. IMPRESSION: No acute osseous abnormality. Normal [facility] 12 Lead EKGon 08-02-2024 12 Lead EKG [facility] [place] [address] 12 Lead EKG 08/02/24 1309 MR#: [id number] Acct: [id number] Name: LINDSAY ACUNA Rep #: [id number] : 1945 78 From: Mj Benavides MD [...] ECG Confirmed by MAKAYLA LAWSON, MJ ([id number]), website/blog editor NAIMA BEARDEN ([id number]) on 08/05/2024 6:47:07 AM Referred By: Confirmed By: MJ BENAVIDES MD 08/05/24 0647 Date Mj Benavides MD CC: Dr. Pieter Morgan MD; Dr. Kameron Caruso MD Signed Normal [facility] Absolute lymphocyte countOrd ered By: Pieter Morgan on 08-02-2024 Lymphocytes Auto (Unsp spec) [#/Vol] 1.56 10*3/uL 0.83-4.51 [facility] Absolute neutrophil countOrd ered By: Pieter Morgan on 08-02-2024 Neutrophils (Bld) [#/Vol] 6.2 10*3/uL 2.0-7.7 [facility] Activated partial thrombopla stin time (aPTT) in platelet poor plasma by coagulation aOrdered By: Pieter Morgan on 08-02-2024 aPTT Coag (PPP) [Time] 28.4 s 24.1-36.2 [facility] Anion gap in Serum or Plasma Ordered By: Pieter Morgan on 08-02-2024 Anion gap [Moles/Vol] 12 mmol/L 5-15 [facility] Automated lymphocyte count a s percentage of total leukocytesOrdered By: Pieter Morgan on 08-02-2024 Lymphocytes/100 WBC Auto (Unsp spec) 17.9 % Low 19-41 [facility] BUN/creatinine ratioOrdered By: Pieter Morgan on 08-02-2024 Urea nitrogen/Creatinine [Mass ratio] 11.6 mg/mg 10- [facility] Basic Metabolic Profile (BMP )on 08-02-2024 BUN/CRE 11.6 RATIO Normal 03-03 [facility] Comment on above: Performed By: #### L 300.4310, L501.4021, L300.3900, L500.2500, L100.0100 #### [facility] [address] [place], [address] Calcium [Mass/Vol] 9.0 mg/dL Normal 7.6-11.0 [facility] Comment on above: Performed By: #### L 300.4310, L501.4021, L300.3900, L500.2500, L100.0100 #### [facility] [address] [place], [address] Chloride [Moles/Vol] 98 mmol/L Normal 98-108 [facility] Comment on above: Performed By: #### L 300.4310, L501.4021, L300.3900, L500.2500, L100.0100 #### [facility] [address] [place], [address] CO2 [Moles/Vol] 22.0 mmol/L Normal 21.0-32.0 [facility] Comment on above: Performed By: #### L 300.4310, L501.4021, L300.3900, L500.2500, L100.0100 #### [facility] [address] [place], [address] Creatinine [Mass/Vol] 1.74 mg/dL High 0.70-1.20 [facility] Comment on above: Performed By: #### L 300.4310, [id number], L300.3900, L500.2500, L100.0100 #### [facility] [address] [place], [address] ECRCL 27.14 ml/min Low 50-250 [facility] Comment on above: Performed By: #### L 300.4310, L501.4021, L300.3900, L500.2500, L100.0100 #### [facility] [address] [place], [address] GAP 12 Normal 5-15 [facility] Comment on above: Performed By: #### L 300.4310, L501.4021, L300.3900, L500.2500, L100.0100 #### [facility] [address] [place], [address] GFR/1.73 sq M.predicted among non-blacks MDRD (S/P/Bld) [Vol rate/Area] 29 mL/min/{1.73_m2} Low >60 [facility] Comment on above: Result Comment: mL/m in/1.73m2 CKD-EPI Creatinine Equation (2020) Performed By: #### L 300.4310, L501.4021, L300.3900, L500.2500, L100.0100 #### [facility] [address] [place], [address] Glucose [Mass/Vol] 235 mg/dL High 70-99 [facility] Comment on above: Performed By: #### L 300.4310, L501.4021, L300.3900, L500.2500, L100.0100 #### [facility] [address] [place], [address] Potassium [Moles/Vol] 4.2 mmol/L Normal 3.3-5.1 [facility] Comment on above: Performed By: #### L 300.4310, L501.4021, L300.3900, L500.2500, L100.0100 #### [facility] [address] [place], [address] Sodium [Moles/Vol] 132 mmol/L Low 133-145 [facility] Comment on above: Performed By: #### L 300.4310, L501.4021, L300.3900, L500.2500, L100.0100 #### [facility] [address] [place], [address] Urea nitrogen [Mass/Vol] 20 mg/dL High 4-19 [facility] Comment on above: Performed By: #### L 300.4310, L501.4021, L300.3900, L500.2500, L100.0100 #### [facility] [address] [place], [address] Basophil percentageOrdered B y: Pieter Morgan on 08-02-2024 Basophils/100 WBC (Bld) 0.5 % 0-1 [facility] CBC W/Diff, Automatedon 07-14 Absolute Lymph 1.56 X10 3/uL Normal 0.83-4.51 [facility] Comment on above: Performed By: #### L 300.4310, L501.4021, L300.3900, L500.2500, L100.0100 #### [facility] [address] [place], [address] Absolute Neut 6.2 X10 3/uL Normal 2.0-7.7 [facility] Comment on above: Performed By: #### L 300.4310, L501.4021, L300.3900, L500.2500, L100.0100 #### [facility] [address] [place], [address] Basophils/100 WBC (Bld) 0.5 % Normal 0-1 [facility] Comment on above: Performed By: #### L 300.4310, L501.4021, L300.3900, L500.2500, L100.0100 #### [facility] [address] [place], [address] Eosinophils/100 WBC (Bld) 1.0 % Normal 0-5 [facility] Comment on above: Performed By: #### L 300.4310, L501.4021, L300.3900, L500.2500, L100.0100 #### [facility] [address] [place], [address] Erythrocyte distribution width (RBC) [Ratio] 13.3 % Normal 11.6-14.6 [facility] Comment on above: Performed By: #### L 300.4310, L501.4021, L300.3900, L500.2500, L100.0100 #### [facility] [address] [place], [address] Hematocrit (Bld) [Volume fraction] 42.0 % Normal 37-47 [facility] Comment on above: Performed By: #### L 300.4310, L501.4021, L300.3900, L500.2500, L100.0100 #### [facility] [address] [place], [address] Hemoglobin (Bld) [Mass/Vol] 13.8 g/dL Normal 12.0-15.0 [facility] Comment on above: Performed By: #### L 300.4310, L501.4021, L300.3900, L500.2500, L100.0100 #### [facility] [address] [place], [address] IG% 0.300 Normal 0.0-0.9 [facility] Comment on above: Result Comment: IG% - Immature Granulocytes (promyelocytes, myelocytes and metamyelocytes) > 1% indicates that a LEFT SHIFT is Present. Performed By: #### L 300.4310, L501.4021, L300.3900, L500.2500, L100.0100 #### [facility] [address] [place], [address] Lymphocytes/100 WBC (Bld) 17.9 % Low 19-41 [facility] Comment on above: Performed By: #### L 300.4310, L501.4021, L300.3900, L500.2500, L100.0100 #### [facility] [address] [place], [address] MCH (RBC) [Entitic mass] 30.3 pg Normal 27.0-32.0 [facility] Comment on above: Performed By: #### L 300.4310, L501.4021, L300.3900, L500.2500, L100.0100 #### [facility] [address] [place], [address] MCHC (RBC) [Mass/Vol] 32.9 g/dL Normal 32-36 [facility] Comment on above: Performed By: #### L 300.4310, L501.4021, L300.3900, L500.2500, L100.0100 #### [facility] [address] [place], [address] MCV (RBC) [Entitic vol] 92.1 fL Normal 81-99 [facility] Comment on above: Performed By: #### L 300.4310, L501.4021, L300.3900, L500.2500, L100.0100 #### [facility] [address] [place], [address] Monocytes/100 WBC (Bld) 8.9 % Normal 0-10 [facility] Comment on above: Performed By: #### L 300.4310, L501.4021, L300.3900, L500.2500, L100.0100 #### [facility] [address] [place], [address] Neutrophils/100 WBC (Bld) 71.4 % High 47-70 [facility] Comment on above: Performed By: #### L 300.4310, L501.4021, L300.3900, L500.2500, L100.0100 #### [facility] [address] [place], [address] Nucleated RBC (Bld) [#/Vol] 0 10*3/uL Normal 0-5 [facility] [facility] Comment on above: Performed By: #### L 300.4310, L501.4021, L300.3900, L500.2500, L100.0100 #### [facility] [address] [place], [address] Platelet mean volume (Bld) [Entitic vol] 10.7 fL Normal 6.2-12.0 [facility] Comment on above: Performed By: #### L 300.4310, L501.4021, L300.3900, L500.2500, L100.0100 #### [facility] [address] [place], [address] Platelets (Bld) [#/Vol] 214 10*3/uL Normal 150-450 [facility] Comment on above: Performed By: #### L 300.4310, L501.4021, L300.3900, L500.2500, L100.0100 #### [facility] [address] [place], [address] RBC (Bld) [#/Vol] 4.56 10*6/uL Normal 4.2-5.4 [facility] Comment on above: Performed By: #### L 300.4310, L501.4021, L300.3900, L500.2500, L100.0100 #### [facility] [address] [place], [address] RDW SD 45.3 fl High 35.1-43.9 [facility] Comment on above: Performed By: #### L 300.4310, L501.4021, L300.3900, L500.2500, L100.0100 #### [facility] [address] [place], [address] WBC (Bld) [#/Vol] 8.7 10*3/uL Normal 4.4-11.0 [facility] Comment on above: Performed By: #### L 300.4310, L501.4021, L300.3900, L500.2500, L100.0100 #### [facility] [address] [place], [address] CBC,PLATELETSon 08-02-2024 Erythrocyte distribution width (RBC) [Ratio] 13.3 % 10.8 - 14.9 % [facility] Hematocrit (Bld) [Volume fraction] 43.8 % 34.9 - 44.3 % [facility] Hemoglobin (Bld) [Mass/Vol] 14 g/dL 11.4 - 15.2 g/dL [facility] Interpretation and review of laboratory results Normal [facility] MCH (RBC) [Entitic mass] 29.4 pg 25.9 - 33.9 pg [facility] MCHC (RBC) [Mass/Vol] 32 g/dL 31.4 - 35.9 g/dL [facility] MCV (RBC) [Entitic vol] 92 fL 79.6 - 97.7 fL [facility] Platelet mean volume (Bld) [Entitic vol] 10.8 fL 8.5 - 12.2 fL [facility] Platelets (Bld) [#/Vol] 245 10*3/uL 150 - 393 K/uL [facility] RBC (Bld) [#/Vol] 4.76 10*6/uL [facility] WBC (Bld) [#/Vol] 8.16 10*3/uL 3.99 - 11.19 K/uL [facility] Hematocrit (Bld) [Volume fraction] 43.8 % Normal 34.9-44.3 [facility] Comment on above: Performed By: #### B LDCULT #### [facility] (DEFAULT) [address] [place] [address] Hemoglobin (Bld) [Mass/Vol] 14.0 g/dL Normal 11.4-15.2 [facility] Comment on above: Performed By: #### B LDCULT #### [facility] (DEFAULT) [address] [address] MCV (RBC) [Entitic vol] 92.0 fL Normal 79.6-97.7 [facility] Comment on above: Performed By: #### B LDCULT #### [facility] (DEFAULT) [address] [place] [address] Mean Cell Hgb 29.4 pg Normal 25.9-33.9 [facility] Comment on above: Performed By: #### B LDCULT #### [facility] (DEFAULT) [address] [place] [address] Mean Cell Hgb Conc 32.0 g/dL Normal 31.4-35.9 [facility] Comment on above: Performed By: #### B LDCULT #### [facility] (DEFAULT) [address] [place] [address] Platelet mean volume (Bld) [Entitic vol] 10.8 fL Normal 8.5-12.2 [facility] Comment on above: Performed By: #### B LDCULT #### [facility] (DEFAULT) [address] [address] Platelets (Bld) [#/Vol] 245 10*3/uL Normal 150-393 [facility] Comment on above: Performed By: #### B LDCULT #### [facility] (DEFAULT) [address] [place] [address] RBC (Bld) [#/Vol] 4.76 10*6/uL Normal 3.91-5.04 [facility] Comment on above: Performed By: #### B LDCULT #### [facility] (DEFAULT) [address] [place] [address] RBC Distribution 13.3 % Normal 10.8-14.9 [facility] Comment on above: Performed By: #### B LDCULT #### [facility] (DEFAULT) [address] [place] [address] WBC (Bld) [#/Vol] 8.16 10*3/uL Normal 3.99-11.19 [facility] Comment on above: Performed By: #### B LDCULT #### [facility] (DEFAULT) [address] [place] [address] CHEM 7 (LYTES,BUN,CREA,GLUC) on 08-02-2024 Anion gap [Moles/Vol] 16 mmol/L 7 - 17 mmol/L [facility] Chloride [Moles/Vol] 105 mmol/L 98 - 10 8 mmol/L [facility] CO2 [Moles/Vol] 22 mmol/L 21 - 31 mmol/L [facility] Creatinine [Mass/Vol] 1.37 mg/dL High 0.50 - 1.20 mg/dL [facility] eGFR, CKD-EPI, Female 39 Low - PINF [facility] Glucose [Mass/Vol] 210 mg/dL High 70 - 179 mg/dL [facility] Osmolality Calc [Osmolality] 299 [facility] Potassium [Moles/Vol] 3.7 mmol/L 3.5 - 5.0 mmol/L [facility] Sodium [Moles/Vol] 139 mmol/L 135 - 145 mmol/L [facility] Urea nitrogen [Mass/Vol] 18 mg/dL 7 - 25 mg/dL [facility] Urea nitrogen/Creatinine [Mass ratio] 13 mg/mg [facility] Anion gap [Moles/Vol] 16 mmol/L Normal 7-[address] [facility] Comment on above: Performed By: #### [facility] #### [facility] (DEFAULT) [address] [place] [address] Chloride [Moles/Vol] 105 mmol/L Normal 98-108 [facility] Comment on above: Performed By: #### H EMO #### [facility] (DEFAULT) [address] [place] [address] CO2 [Moles/Vol] 22 mmol/L Normal 21-31 [facility] Comment on above: Performed By: #### H [facility] #### [facility] (DEFAULT) [address] [address] Creatinine [Mass/Vol] 1.37 mg/dL High 0.50-1.[address] [facility] Comment on above: Performed By: #### H [facility] #### [facility] (DEFAULT) [address] [place] [address] GFR/1.73 sq M.predicted among non-blacks MDRD (S/P/Bld) [Vol rate/Area] 39 mL/min/{1.73_m2} Low >=60 [facility] Comment on above: Result Comment: Repo rted eGFR is based on the CKD-EPI 2020 equation using creatinine, age, and sex. Performed By: #### [facility] #### [facility] (DEFAULT) [address] [place] [address] Glucose [Mass/Vol] 210 mg/dL High Nonfastin -179 mg/dL; Fastin-99 [facility] Comment on above: Performed By: #### H EMOGC #### [facility] (DEFAULT) [address] [place] [address] Osmolality [Osmolality] 299 mosm/kg Normal 278-305 [facility] Comment on above: Performed By: #### H EMOGC #### [facility] (DEFAULT) [address] [place] [address] Potassium [Moles/Vol] 3.7 mmol/L Normal 3.5-5.[address] [facility] Comment on above: Performed By: #### H EMOGC #### [facility] (DEFAULT) [address] [place] [address] Sodium [Moles/Vol] 139 mmol/L Normal 135-145 [facility] Comment on above: Performed By: #### H EMOGC #### [facility] (DEFAULT) [address] [place] [address] Urea nitrogen [Mass/Vol] 18 mg/dL Normal 7-25 [facility] Comment on above: Performed By: #### H EMOGC #### [facility] (DEFAULT) [address] [place] [address] Urea nitrogen/Creatinine [Mass ratio] 13 mg/mg Normal [facility] Comment on above: Performed By: #### H EMOGC #### [facility] (DEFAULT) [address] [place] [address] ABDOMEN/PELVIS WITH CONTR AST VASCULAR TRAUMAon [...] grade: None. Kidney trauma grade: None. Normal [facility] CT Abdomen and Pelvis W cont rast Seth 08-02-2024 RADIOLOGY RADIOLOGY [facility] CT Abdomen and Pelvis W cont rast IVOrdered By: Edson Head on 08-02-2024 [facility] Work Phone: CT Cervical spine WO contras ton 08-02-2024 Radiology Study observation (narrative) [facility] CT Orbit WO contraston 08-02 Radiology Study observation (narrative) [facility] Carbon dioxide, total [Moles /volume] in Central venous bloodOrdered By: Pieter Morgan on 08-02-2024 CO2 [Moles/Vol] 22.0 mmol/L 21.0-32.0 [facility] Chloride assayOrdered By: Racheal Morgan on 08-02-2024 Chloride [Moles/Vol] 98 mmol/L 98-108 [facility] Emergency Department Summary on 08-02-2024 Emergency Department Summary [facility] Medical Records Department [address] [place] [address] Emergency Department Summary 08/02/24 MR#: [id number] Acct: [id number] Name: LINDSAY ACUNA Rep #: [id number] : 1945 78 From: Pieter Morgan MD [...] the EMR. states they returned home from [facility] about 1.5-2 weeks ago, and they both had colds. He is better, but she is "on round 2." [facility] Medical History Paroxysmal atrial fibrillation with RVR [...] normal respir (more content not included)... Normal [facility] Eosinophil percentageOrdered By: Pieter Morgan on 08-02-2024 Eosinophils/100 WBC (Bld) 1.0 % 0-5 [facility] Erythrocyte distribution wid th ratioOrdered By: Pieter Morgan on 08-02-2024 Erythrocyte distribution width (RBC) [Ratio] 13.3 % 11.6-14.6 [facility] Erythrocyte distribution wid th standard deviationOrdered By: Pieter Morgan on 08-02-2024 Erythrocyte distribution width (RBC) [Entitic vol] 45.3 fL High 35.1-43.9 [facility] Erythrocyte distribution width (RBC) [Ratio] 45.3 fl High 35.1-43.9 [facility] Estimation of creatinine mackenzie aranceOrdered By: Pieter Morgan on 08-02-2024 Estimated Creatinine Clearance Calc 27.14 ml/min Low 50-250 [facility] GFR/1.73 sq M.predicted lana g non-blacks MDRD (S/P/Bld) [Vol rate/Area]Ordered By: Pieter Morgan on 08-02-2024 Estimated GFR (MDRD) Non-Af Amer 29 Low >60 [facility] Comment on above: mL/min/1.73m2 CKD-EP I Creatinine Equation (2020) Glomerular filtration rate ( GFR) estimation/1.73 sq m using serum, plasma, or whole bOrdered By: Pieter Morgan on 08-02-2024 GFR/1.73 sq M.predicted among non-blacks MDRD (S/P/Bld) [Vol rate/Area] 29 mL/min/{1.73_m2} Low >60 [facility] Comment on above: mL/min/1.73m2 CKD-EP I Creatinine Equation (2020) HEMOGLOBIN A1Con 08-02-2024 Average glucose Estimated from glycated hemoglobin (Bld) [Mass/Vol] 177 mg/dL [facility] HbA1c (Bld) [Mass fraction] 7.8 % High 4.7 - 5.6 % [facility] Interpretation and review of laboratory results Abnormal [facility] Glucose [Mass/Vol] 177 mg/dL Normal [facility] Comment on above: Performed By: #### H EMO #### [facility] (DEFAULT) [address] [place] [address] Hemoglobin A1C HPLC 7.8 % High 4.7-5.6 [facility] Comment on above: Performed By: #### H EMO #### [facility] (DEFAULT) [address] [place] [address] HEPATIC FUNCTION PANELon Albumin [Mass/Vol] 3.5 g/dL 3.5 - 5.0 g/dL [facility] ALP [Catalytic activity/Vol] 117 U/L 32 - 126 U/L [facility] ALT [Catalytic activity/Vol] 10 U/L 9 - 48 U/L [facility] AST [Catalytic activity/Vol] 17 U/L 10 - 39 U/L [facility] Bilirubin [Mass/Vol] 0.6 mg/dL [facility]/dL [facility] Bilirubin.direct [Mass/Vol] 0.1 mg/dL NINF - 0.3 mg/dL [facility] Protein [Mass/Vol] 6.3 g/dL Low 6.4 - 8.3 g/dL [facility] Albumin [Mass/Vol] 3.5 g/dL Normal 3.5-5.0 [facility] Comment on above: Performed By: #### H EMO #### [facility] (DEFAULT) [address] [place] [address] ALP [Catalytic activity/Vol] 117 U/L Normal 32-126 [facility] Comment on above: Performed By: #### H EMO #### [facility] (DEFAULT) [address] [place] [address] ALT [Catalytic activity/Vol] 10 U/L Normal 9-48 [facility] Comment on above: Performed By: #### H EMOGC #### [facility] (DEFAULT) [address] [place] [address] AST [Catalytic activity/Vol] 17 U/L Normal 10-39 [facility] Comment on above: Performed By: #### H EMOGC #### [facility] (DEFAULT) [address] [place] [address] Bilirubin [Mass/Vol] 0.6 mg/dL Normal <1.5 [facility] Comment on above: Performed By: #### H EMOGC #### [facility] (DEFAULT) [address] [place] [address] Bilirubin.indirect [Mass/Vol] 0.1 mg/dL Normal <0.3 [facility] Comment on above: Performed By: #### H EMOGC #### [facility] (DEFAULT) [address] [place] [address] Protein [Mass/Vol] 6.3 g/dL Low 6.4-8.3 [facility] Comment on above: Performed By: #### H EMOGC #### [facility] (DEFAULT) [address] [place] [address] HIGH SENSITIVITY TROPONIN I - SINGLE ORDERon 08-02-2024 Interpretation and review of laboratory results Normal [facility] Troponin I.cardiac High sensitivity method [Mass/Vol] 9 ng/L NINF - 34 ng/L [facility] hs-Troponin I 9 ng/L Normal <34 [facility] Comment on above: Order Comment: 2 [...] bottle. Performed By: #### B LDCULT #### [facility] (DEFAULT) [address] [address] Hematocrit Auto (Bld) [Volum e fraction]Ordered By: Pieter Morgan on 08-02-2024 Hematocrit (Bld) [Volume fraction] 42.0 % 37-47 [facility] Hemoglobin measurementOrdere d By: Pieter Morgan on 08-02-2024 Hemoglobin (Bld) [Mass/Vol] 13.8 g/dL 12.0-15.0 [facility] Immature granulocytes/100 WB C Auto (Bld)Ordered By: Pieter Morgan on 08-02-2024 Immature granulocytes/100 WBC (Bld) 0.300 % 0.0-0.9 [facility] Comment on above: IG% - Immature Granu locytes (promyelocytes, myelocytes and metamyelocytes) > 1% indicates that a LEFT SHIFT is Present. Influenza virus A and B and SARS-CoV-2 (COVID-19) and Respiratory syncytial virus RNAOrdered By: Pieter Morgan on 08-02-2024 SARS-CoV-2 (COVID-19) RNA CHUCKY+probe Ql (Unsp spec) [facility] International normalized rat io (INR) calculationOrdered By: Pieter Morgan on 08-02-2024 INR Coag (Bld) [Relative time] 1.1 {INR} [facility] L499.0042on 08-02-2024 Trop T High Sen Normal <=14 [facility] Comment on above: Result Comment: Canc elled via OM: Order cancelled - Patient discharged Performed By: #### L 499.0042 ####[facility] [address] [place], [address] L499.0043on 08-02-2024 Trop T High Sen Normal <=14 [facility] Comment on above: Result Comment: Canc elled via OM: Order cancelled - Patient discharged Performed By: #### L 499.0043 ####[facility] [address] [place], [address] L501.4021on 08-02-2024 Trop T High Sen 38 ng/L High <=14 [facility] Comment on above: Performed By: #### L 300.4310, L501.4021, L300.3900, L500.2500, L100.0100 ####[facility] [address] [place], [address] LIPID PANEL WITH REFLEX TO M ANAMARIA LDLon 08-02-2024 Cholesterol [Mass/Vol] 141 mg/dL NINF - 200 mg/dL [facility] Cholesterol in HDL [Mass/Vol] 38 mg/dL Low 40 - PINF mg/dL [facility] Cholesterol in LDL [Mass/Vol] 84 mg/dL 0 - 99 mg/dL [facility] Cholesterol non HDL [Mass/Vol] 103 mg/dL NINF - 130 mg/dL [facility] Cholesterol.total/Alta sterol in HDL [Mass ratio] 3.7 {ratio} NINF - 4.5 [facility] Triglyceride [Mass/Vol] 96 mg/dL NINF - 150 mg/dL [facility] Calculated LDL Cholesterol 84 mg/dL Normal 0-99 [facility] Comment on above: Result Comment: [<10 0 mg/dL: Optimal] [100-129 mg/dL: Near Optimal] [130-159 mg/dL: Borderline High] [160-189 mg/dL: High] [>189 mg/dL: Very High] Performed By: #### [facility] #### [facility] (DEFAULT) [address] [address] Cholesterol [Mass/Vol] 141 mg/dL Normal <200 [facility] Comment on above: Result Comment: [<20 0 mg/dL: Desirable] [200-239 mg/dL: Borderline High] [>239 mg/dL: High] Performed By: #### [facility] #### [facility] (DEFAULT) [address] [address] Cholesterol in HDL [Mass/Vol] 38 mg/dL Low >=40 [facility] Comment on above: Result Comment: [<40 mg/dL: Low (High Risk)] [>59 mg/dL: High (Low Risk)] Performed By: #### H EMO #### [facility] (DEFAULT) [address] [place] [address] Non HDL Cholesterol 103 mg/dL Normal <130 [facility] Comment on above: Performed By: #### H EMOGC #### [facility] (DEFAULT) [address] [place] [address] Total Cholesterol/HDL Ratio 3.7 Normal <4.5 [facility] Comment on above: Performed By: #### [facility] #### [facility] (DEFAULT) [address] [place] [address] Triglyceride [Mass/Vol] 96 mg/dL Normal <150 [facility] Comment on above: Result Comment: [<15 0 mg/dL: Desirable] [150-199 mg/dL: Borderline] [200-499 mg/dL: High] [>500 mg/dL: Very High] Performed By: #### [facility] #### [facility] (DEFAULT) [address] [place] [address] Lymphocytes Auto (Unsp spec) [#/Vol]Ordered By: Pieter Morgan on 08-02-2024 Lymphocytes (Bld) [#/Vol] 1.56 10*3/uL 0.83-4.51 [facility] Lymphocytes/100 WBC Auto (Un sp spec)Ordered By: Pieter Morgan on 08-02-2024 Lymphocytes/100 WBC (Bld) 17.9 % Low 19-41 [facility] M100.678on 08-02-2024 M100.678 Pending SARS-CoV-2 (COVID 19) Negative INFLUENZA A Negative INFLUENZA B Negative RSV PCR Negative Normal [facility] Comment on above: Performed By: #### M 100.678 #### [facility] [address] [place], [address] MAGNESIUMon 08-02-2024 Magnesium [Mass/Vol] 1.2 mg/dL Low 1.6 - 2 .6 mg/dL [facility] Magnesium [Mass/Vol] 1.2 mg/dL Low 1.6-2.6 [facility] Comment on above: Performed By: #### [facility] #### [facility] (DEFAULT) [address] [place] [address] MCV (mean corpuscular volume ) determinationOrdered By: Pieter Morgan on 08-02-2024 MCV (RBC) [Entitic vol] 92.1 fL 81-99 [facility] Mean corpuscular hemoglobin (MCH) determinationOrdered By: Pieter Morgan on 08-02-2024 MCH (RBC) [Entitic mass] 30.3 pg 27.0-32.0 [facility] Mean corpuscular hemoglobin concentration (MCHC) determinationOrdered By: Pieter Morgan on 08-02-2024 MCHC (RBC) [Mass/Vol] 32.9 g/dL 32-36 [facility] Mean platelet volume determi nationOrdered By: Pieter Morgan on 08-02-2024 Platelet mean volume (Bld) [Entitic vol] 10.7 fL 6.2-12.0 [facility] Monocyte percentageOrdered B y: Pieter Morgan on 08-02-2024 Monocytes/100 WBC (Bld) 8.9 % 0-10 [facility] NT-PRO B-TYPE NATRIURETIC PE PTIDEon 08-02-2024 Natriuretic peptide B (Bld) [Mass/Vol] 1115 pg/mL High <=540 [facility] Comment on above: Performed By: #### H [facility] #### [facility] (DEFAULT) [address] [place] [address] Neutrophil percentageOrdered By: Pieter Morgan on 08-02-2024 Neutrophils/100 WBC (Bld) 71.4 % High 47-70 [facility] No Panel Informationon 08-02 Radiology Study observation (narrative) [facility] Interpretation and review of laboratory results Abnormal [facility] No Panel InformationOrdered By: Pieter Morgan on 08-02-2024 Troponin T High Sensitivity 38 ng/L High <14 [facility] Nucleated red blood cell per centageOrdered By: Pieter Morgan on 08-02-2024 Nucleated RBC/100 WBC (Bld) [Ratio] 0 % 0-5 [facility] PT,INR,PTTon 08-02-2024 aPTT Coag (PPP) [Time] 26.9 s [facility] INR Coag (Bld) [Relative time] 1.1 {INR} 0.9 - 1.1 [facility] Interpretation and review of laboratory results Normal [facility] PT Coag (PPP) [Time] 13.9 s [facility] aPTT Coag (Bld) [Time] 26.9 s Normal 24.0-34.3 [facility] Comment on above: Performed By: #### P TPTT ####[facility] (DEFAULT)[address] [place] [address] INR Coag (PPP) [Relative time] 1.1 {INR} Normal 0.9-1.1 [facility] Comment on above: Performed By: #### P TPTT ####[facility] (DEFAULT)[address] [place] [address] PT Coag (PPP) [Time] 13.9 s Normal 11.9-14.2 [facility] Comment on above: Performed By: #### P TPTT ####[facility] (DEFAULT)[address] [place] [address] Partial Thromboplast Timeon 08-02-2024 aPTT Coag (Bld) [Time] 28.4 s Normal 24.1-36.2 [facility] Comment on above: Performed By: #### L 300.4310, L501.4021, L300.3900, L500.2500, L100.0100 #### [facility] [address] [place], [place], [address] Platelet countOrdered By: Racheal Morgan on 08-02-2024 Platelets (Bld) [#/Vol] 214 10*3/uL 150-450 [facility] Potassium (Unsp spec) [Mass/ Vol]Ordered By: Pieter Morgan on 08-02-2024 Potassium [Moles/Vol] 4.2 mmol/L 3.3-5.1 [facility] Potassium measurement (mass/ volume)Ordered By: Pieter Morgan on 08-02-2024 Potassium (Unsp spec) [Mass/Vol] 4.2 mmol/L 3.3-5.1 [facility] Prothrombin Time w/INRon INR Coag (PPP) [Relative time] 1.1 {INR} Normal [facility] Comment on above: Performed By: #### L 300.4310, L501.4021, L300.3900, L500.2500, L100.0100 #### [facility] [address] [place] [place], [address] PT Coag (PPP) [Time] 14.1 s Normal 11.7-14.9 [facility] Comment on above: Performed By: #### L 300.4310, L501.4021, L300.3900, L500.2500, L100.0100 #### [facility] [address] [place], [address] Prothrombin timeOrdered By: Pieter Morgan on 08-02-2024 PT Coag (PPP) [Time] 14.1 s 11.7-14.9 [facility] RBC Auto (Bld) [#/Vol]Ordere d By: Pieter Morgan on 08-02-2024 RBC (Bld) [#/Vol] 4.56 10*6/uL 4.2-5.4 [facility] SCREEN: MRSA/MSSAon 08-03-19 25 Methicillin Resistant S. Aureus By Pcr Negative Normal Negative [facility] Comment on above: Order Comment: Colle [...] by the Clinical Microbiology Laboratory at [facility]. It has not been cleared or approved by the FDA.The laboratory is regulated under CLIA as qualified to perform high-complexity testing. This test is used for clinical purposes. It should not be regarded as investigational or for research. Performed By: #### T YPEC #### [facility] (DEFAULT) [address] [address] Staphylococcus Aureus By Pcr Negative Normal Negative [facility] Comment on above: Order Comment: Colle [...] by the Clinical Microbiology Laboratory at [facility]. It has not been cleared or approved by the FDA.The laboratory is regulated under CLIA as qualified to perform high-complexity testing. This test is used for clinical purposes. It should not be regarded as investigational or for research. Performed By: #### T YPEC #### [facility] (DEFAULT) [address] [place] [address]359 STROKE Brain/Head without Co nton 08-02-2024 STROKE Brain/Head without Cont [facility] Imaging Services [address] [place] [address] 279791 STROKE Brain/Head without Cont MR#: [id number] Acct: [id number] Name: LINDSAY ACUNA Rep #: [id number] : 1945 F 78 From: Kameron Cardoso MD PCP: Dr. Kameron Caruso MD Status: REG ER Study: STROKE Brain/Head without Cont Date of Exam: 0 08/02/24 Exam# [id number] Ordering Dr: Pieter Morgan MD EXAM: CT [...] on 08/02/2024 at 1250 hours. Reading Location: [facility] CC: Dr. Pieter Morgan MD; Dr. Kameron Caruso MD Consultative Sales Associate: Signed Normal [facility] STROKE CTA Head AND Neck W/C onon 08-02-2024 STROKE CTA Head AND Neck W/Con [facility] Imaging Services [address] [place] [address]691 STROKE CTA Head AND Neck W/Con MR#: [id number] Acct: [id number] Name: LINDSAY ACUNA Rep #: [id number] : 1945 F 78 From: August ibrahim MD PCP: Dr. Kameron Caruso MD Status: REG ER Study: STROKE CTA Head AND Neck W/Con Date of Exam: 0 08/02/24 Exam# [id number] Ordering Dr: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 05-23-2024 TSH Qn 0.183 m[IU]/L Low 0.270-4.200 [facility] Comment on above: Order Comment: Speci men Type: BLOOD SPECIMENOrdering Facility: [facility] Address: [address] [place] [address] Performed By: #### 2 4331-1, , 3 ####[facility] LABCLIA [id number] [place] [address] [place] CNOVon 11-28-2023 CNOV Office Visit ([facility] ) LINDSAY ACUNA ([id number]) 1945 F Date Time Provider Department 11/28/23 9:40 AM KAMERON CARUSO [facility] During your visit today, [...] follow up. Is planning on going to [place] in June. No bowel, gi, or urinary concerns. Does have some urinary leakage. Hx of tubulovillous adenoma; due for colonoscopy; will contact GI in [place] Lipid: Does not watch diet or exercise. [...] mouth daily before breakfast. blood sugar diagnostic (REBIS[employer] ULTRA TEST) test strip Test Blood Sugar [...] Smoking stat (more content not included)... Normal [facility] Comprehensive metabolic 2000 panelon 11-27-2023 Albumin [Mass/Vol] 4.1 g/dL Normal 3.9-4.9 [facility] Comment on above: Order Comment: Speci men Type: BLOOD SPECIMENOrdering Facility: [facility] Address: [address] [place] [address] Performed By: #### 3 016-3, 66329-8, 73709-7 ####[facility] LABCLIA [id number] [place] [address] [place] ALP [Catalytic activity/Vol] 86 U/L Normal 34-123 [facility] Comment on above: Order Comment: Speci men Type: BLOOD SPECIMENOrdering Facility: [facility] Address: [address] [place] [address] Performed By: #### 3 016-3, 45267-0, 70123-8 ####[facility] LABCLIA [id number] [place] [address] [place] ALT [Catalytic activity/Vol] 13 U/L Normal 7-38 [facility] Comment on above: Order Comment: Speci men Type: BLOOD SPECIMENOrdering Facility: [facility] Address: [address] [place] [address] Performed By: #### 3 016-3, 49572-0, 01485-1 ####[facility] LABCLIA [id number] [place] [address] [place] Anion gap [Moles/Vol] 10 mmol/L Normal 8-15 [facility] Comment on above: Order Comment: Speci men Type: BLOOD SPECIMENOrdering Facility: [facility] Address: [address] [place] [address] Performed By: #### 3 016-3, 15644-5, 36696-5 ####[facility] LABCLIA [id number] [place] [address] [place] AST [Catalytic activity/Vol] 21 U/L Normal 13-35 [facility] Comment on above: Order Comment: Speci men Type: BLOOD SPECIMENOrdering Facility: [facility] Address: [address] [place] [address] Performed By: #### 3 016-3, 64069-6, 59975-2 ####[facility] LABCLIA [id number] [place] [address] [place] Bilirubin [Mass/Vol] 0.5 mg/dL Normal 0.2-1.3 [facility] Comment on above: Order Comment: Speci men Type: BLOOD SPECIMENOrdering Facility: [facility] Address: [address] [place] [address] Performed By: #### 3 016-3, 62358-6, 99934-1 ####[facility] LABCLIA [id number] [place] [address] [place] Calcium [Mass/Vol] 9.7 mg/dL Normal 8.5-10.2 [facility] Comment on above: Order Comment: Speci men Type: BLOOD SPECIMENOrdering Facility: [facility] Address: [address] [place] [address] Performed By: #### 3 016-3, 97016-2, 96226-9 ####[facility] LABCLIA [id number] [place] [address] [place] Chloride [Moles/Vol] 108 mmol/L High 98-107 [facility] Comment on above: Order Comment: Speci men Type: BLOOD SPECIMENOrdering Facility: [facility] Address: [address] [place] [address] Performed By: #### 3 016-3, 68130-5, 35104-9 ####[facility] LABIA [id number] [place] [address] [place] CO2 [Moles/Vol] 23 mmol/L Normal 22-30 [facility] Comment on above: Order Comment: Speci men Type: BLOOD SPECIMENOrdering Facility: [facility] Address: [address] [place] [address] Performed By: #### 3 016-3, 69388-4, 52425-4 ####[facility] LABIA [id number] [place] [address] [place] Creatinine [Mass/Vol] 1.37 mg/dL High 0.58-0.96 [facility] Comment on above: Order Comment: Speci men Type: BLOOD SPECIMENOrdering Facility: [facility] Address: [address] [place] [address] Performed By: #### 3 016-3, 09889-3, 33745-1 ####[facility] LABIA [id number] [place] [address] [place] Creatinine and Glomerular filtration rate.predicted panel (S/P/Bld) 39 mL/min/1.73m??? Low >=60 [facility] Comment on above: Order Comment: Speci men Type: BLOOD SPECIMENOrdering Facility: [facility] Address: [address] [place] [address] Result Comment: Nancy mated Glomerular Filtration Rate [...] actual GFR. Performed By: #### 3 016-3, , ####[facility] LABCLIA [id number] [place] [address] [place] Glucose [Mass/Vol] 77 mg/dL Normal 74-99 [facility] Comment on above: Order Comment: Specelizabeth men Type: BLOOD SPECIMENOrdering Facility: [facility] Address: [address] [place] [address] Result Comment: The [place] Diabetes Association (ADA) provides guidance for cutoff [...] Standards of Medical Care in Diabetes 2016, [place] Diabetes Association. Diabetes Care. 2016.39(Suppl 1). Performed By: #### 3 016-3, , ####[facility] LABCLIA [id number] [place] [address] [place] Potassium [Moles/Vol] 4.4 mmol/L Normal 3.7-5.1 [facility] Comment on above: Order Comment: Deana men Type: BLOOD SPECIMENOrdering Facility: [facility] Address: [address] [place] [address] Performed By: #### 3 016-3, 54794-3, ####[facility] LABCLIA [id number] [address] [address] [place] Protein [Mass/Vol] 6.6 g/dL Normal 6.3-8.0 [facility] Comment on above: Order Comment: Speci men Type: BLOOD SPECIMENOrdering Facility: [facility] Address: [address] [place] [address] Performed By: #### 3 016-3, 10780-3, 29522-6 ####[facility] LABCLIA [id number] [place] [address] [place] Sodium [Moles/Vol] 141 mmol/L Normal 136-144 [facility] Comment on above: Order Comment: Speci men Type: BLOOD SPECIMENOrdering Facility: [facility] Address: [address] [place] [address] Performed By: #### 3 016-3, 17021-0, ####[facility] LABIA [id number] [place] [address] [place] Urea nitrogen [Mass/Vol] 21 mg/dL Normal 7-21 [facility] Comment on above: Order Comment: Speci men Type: BLOOD SPECIMENOrdering Facility: [facility] Address: [address] [place] [address] Performed By: #### 3 016-3, 15457-1, ####[facility] LABIA [id number] [place] [address] [place] HbA1c (Bld)on 11-27-2023 Average glucose Estimated from glycated hemoglobin (Bld) [Mass/Vol] 166 mg/dL Normal [facility] Comment on above: Order Comment: Speci men Type: BLOOD SPECIMENOrdering Facility: [facility] Address: [address] [place] [address] Result Comment: eAG: (Estimated average glucose) is a calculated value from HgbA1c and is public service representative of the average blood glucose level in the last 2-3 month period. Performed By: #### 5 5454-3 ####[facility] LABIA [id number] [place] [address] [place] HbA1c (Bld) [Mass fraction] 7.4 % High 4.3-5.6 [facility] Comment on above: Order Comment: Deana borjas Type: BLOOD SPECIMENOrdering Facility: [facility] Address: [address] [place] [address] Result Comment: Margareth ican Diabetes Association guidelines indicate that patients with HgbA1c in the range 5.7-6.4% are at increased risk for development of diabetes, and intervention by lifestyle modification may be beneficial. HgbA1c greater or equal to 6.5% is considered diagnostic of diabetes. Performed By: #### 5 5454-3 ####[facility] LABCLIA [id number] [place] [address] [place] Lipid 1996 panelon 4 Cholesterol [Mass/Vol] 156 mg/dL Normal <200 [facility] Comment on above: Order Comment: Deana borjas Type: BLOOD SPECIMENOrdering Facility: [facility] Address: [address] [place] [address] Result Comment: <200 mg/dL, Desirable 200-239 mg/dL, Borderline high >239 mg/dL, High Performed By: #### 3 016-3, 56571-1, 90174-5 ####[facility] LABCLIA [id number] [address] [place] Cholesterol in HDL [Mass/Vol] 41 mg/dL Normal >39 [facility] Comment on above: Order Comment: Deana suad Type: BLOOD SPECIMENOrdering Facility: [facility] Address: [address] [place] [address] Result Comment: 40-5 9 mg/dL, Acceptable >59 mg/dL, High: Negative risk factor for coronary heart disease <40 mg/dL, Low: Positive risk factor for coronary heart disease Performed By: #### 3 016-3, 18074-9, 76544-9 ####[facility] LABCLIA [id number] [place] [address] [place] Cholesterol in LDL [Mass/Vol] 85 mg/dL Normal <100 [facility] Comment on above: Order Comment: Deana men Type: BLOOD SPECIMENOrdering Facility: [facility] Address: [address] [place] [address] Result Comment: <100 mg/dL, Optimal 100-129 mg/dL, Near optimal/above optimal 130-159 mg/dL, Borderline high 160-189 mg/dL, High >189 mg/dL, Very high Secondary prevention optimal LDL Cholesterol levels are recommended to be < 70 mg/dL Performed By: #### 3 016-3, 67932-2, 26707-4 ####[facility] LABCLIA [id number] [place] [address] [place] Cholesterol in LDL/Cholesterol in HDL [Mass ratio] 2.07 {ratio} Normal <2.54 [facility] Comment on above: Order Comment: Deana borjas Type: BLOOD SPECIMENOrdering Facility: [facility] Address: [address] [place] [address] Result Comment: Chong daniel: 1. National Cholesterol Education Program ATP III Guideline At-A-Glance Quick Desk Reference: National Heart, Lung, and Blood Fraser. National Institutes of Health. 2001: NIH Publication No. 01-3305. 2. An International Atherosclerosis Society position paper: global recommendations for the management of dyslipidemia: executive summary, Atherosclerosis. 2014: 232(2):410-413. Performed By: #### 3 016-3, , 13674-1 ####[facility] LABCLIA [id number] [place] [address] [place] Cholesterol in VLDL [Mass/Vol] 30 mg/dL High <30 [facility] Comment on above: Order Comment: Denaa suad Type: BLOOD SPECIMENOrdering Facility: [facility] Address: [address] [place] [address] Performed By: #### 3 016-3, 37269-9, 75899-6 ####[facility] LABCLIA [id number] [address] [address] [place] Cholesterol non HDL [Mass/Vol] 115 mg/dL Normal <130 [facility] Comment on above: Order Comment: Speci men Type: BLOOD SPECIMENOrdering Facility: [facility] Address: [address] [place] [address] Result Comment: <130 mg/dL, Optimal 130-159 mg/dL, Near optimal/above optimal 160-189 mg/dL, Borderline high 190-219 mg/dL, High >219 mg/dL, Very high Secondary prevention optimal non HDL Cholesterol levels are recommended to be <100 mg/dL Performed By: #### 3 016-3, 76879-0, 01123-1 ####[facility] LABCLIA [id number] [place] [address] [place] Cholesterol.total/Alta sterol in HDL [Mass ratio] 3.80 {ratio} Normal <5.10 [facility] Comment on above: Order Comment: Speci men Type: BLOOD SPECIMENOrdering Facility: [facility] Address: [address] [place] [address] Performed By: #### 3 016-3, 82534-4, 66342-0 ####[facility] LABCLIA [id number] [place] [address] [place] FASTING TIME 12 hrs Normal [facility] Comment on above: Order Comment: Speci men Type: BLOOD SPECIMENOrdering Facility: [facility] Address: [address] [place] [address] Performed By: #### 3 016-3, 59257-4, 83990-7 ####[facility] LABCLIA [id number] [place] [address] [place] Triglyceride [Mass/Vol] 148 mg/dL Normal <150 [facility] Comment on above: Order Comment: Speci men Type: BLOOD SPECIMENOrdering Facility: [facility] Address: [address] [place] [address] Result Comment: <150 mg/dL, Normal 150-199 mg/dL, Borderline high 200-499 mg/dL, High >499 mg/dL, Very high Performed By: #### 3 016-3, 99962-1, 44648-1 ####[facility] LABCLIA [id number] [place] [id number] [place] TSH SerPl-aCncon 11-27-2023 TSH Qn 1.870 m[IU]/L Normal 0.270-4.200 [facility] Comment on above: Order Comment: Speci men Type: BLOOD SPECIMENOrdering Facility: [facility] Address: [facility] [place] [address] Performed By: #### 3 016-3, 98006-8, 20486-6 ####[facility] LABCLIA [id number] [address] [place] CNOVon 10-10-2023 [facility] LINDSAY ACUNA ([id number]) 1945 F Date Time Provider Department 10/10/23 7:30 AM DAVID DUPREE [facility] During your visit today, we recorded the following information about you: Temperature Pulse Respiration Blood pressure 97.5 degrees 58/minute 18/minute 128/82 Weight 82.1 kg David Dupree, JASIEL.ALUMINUM BOAT INSPECTOR 10/10/2023 8:11 AM Signed Subjective HPI Nontoxic-appearing [...] mouth daily before breakfast. blood sugar diagnostic ([employer] VenturesTOUCH ULTRA TEST) test strip Test Blood Sugar [...] 1 tablet by mouth once daily. lancets (Jer[employer]o VenturesTOUCH DELICA PLUS LANCET) 30 gauge Test blood sugars 1 time daily. Dx: Type 2 DM Controlled E11.9. Insulin: no Chlorhexidine Gluconate (PERIDEX) 0.12 % solution Use 15 mL as instructed twice daily. Rinse around mouth for 30 seconds then expectorate blood sugar diagnostic ([employer] VenturesTOUCH ULTRA TEST STRIP) test strip Use to [...] Rate and (more content not included)... Normal [facility] CNOVon 09-29-2023 CNOV Office Visit ([facility] ) LINDSAY ACUNA ([id number]) 1945 F Date Time Provider Department 09/29/23 2:15 PM RADHA LEVINE [facility] During your visit today, we recorded the following information about you: Temperature Pulse Respiration Blood pressure 97.8 degrees 54/minute 18/minute 148/91 Weight 84 kg Radha LevineJASIEL.ALUMINUM BOAT INSPECTOR 09/29/2023 6:12 PM Signed This note was created using NoteWriter. Subjective Lindsay Acuna is a 77 year old female. 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 Denies fever or chills Denies malaise or fatigue Denies new lotions, soaps, or medicines States that she was working out in the garden the same day the rash erupted. The history is provided by the patient. No foreign language interpreter was used. Rash This is a new [...] 1 tablet by mouth once daily. lancets ([employer]uresTOUCH DELICA PLUS LANCET) 30 gauge Test blood [...] state. Hematologi (more content not included)... Normal [facility] Glucose,Bedsideon 04-16-2019 Glucose [Mass/Vol] 161 mg/dL High 70-100 [facility] Comment on above: Result Comment: Test performed by glucose meter. Results may be 10%-15% lower than serum/plasma values. (CLIA ID [id number]) Performed By: #### B GLU #### [facility] [address] [place] [address] Surgical Pathologyon 019 Surgical Pathology [id number] [facility] PATHOLOGY AND LABORATORY MEDICINE [address] [place] [address] [phone] FINAL SURGICAL PATHOLOGY REPORT ___ NAME: LINDSAY ACUNA : 1945 73 Y F BILLING NO.: [id number] LOCATION: 1XEO PROCEDURE 01/09/2019 DATE: SURGEON: SANTIAGO [...] above diagnosis on 01/10/19. JAW/JAW Signature> ESTEFANI MCCONNELL M.D. ___ CLINICAL INFORMATION: Rectal polyp SPECIMEN: [...] piece of jackson tissue. (bits ns, 3) LH3/SSF Disclaimer: The following statement applies to all immunohistochemistry, in situ hybridization, molecular studies, and immunofluorescence testing. The use of one or more reagents in the above tests is regulated as an analyte specific reagent (ASR). These tests were developed and their performance characteristics determined by the clinical laboratories of [facility]. They have not been cleared by the [...] negativity on decalcified specimens. Professional Performing Location: [address] [address]. DEPARTMENT OF PATHOLOGY AND LABORATORY MEDICINE [place], [place] [address] Normal [facility] .Auto Diffon 08-22-2018 Ammonia mass conc (P) 1.10 10 3/mcL High 0.15-1.00 [facility] ([place]) Comment on above: Performed By: #### B MP, GFR #### [address] [address] Basophils #/vol (Bld) 0.00 10 3/mcL Normal 0.00-0.19 [facility] ([place]) Comment on above: Performed By: #### B MP, GFR #### [address] [address] Basophils/100 WBC (Bld) 0.3 % Normal 0.0-2.5 A [facility] ([place]) Comment on above: Performed By: #### B MP, GFR #### [address] [address] Eosinophils #/vol (Bld) 0.00 10 3/mcL Normal 0.00-0.40 [facility] ([place]) Comment on above: Performed By: #### B MP, GFR #### [address] [address] Eosinophils/100 WBC (Bld) 0.2 % Normal 0.0-7.0 [facility] ([place]) Comment on above: Performed By: #### B MP, GFR #### [address] [address] Lymphocytes #/vol (Bld) 2.20 10 3/mcL Normal 0.77-3.85 [facility] ([place]) Comment on above: Performed By: #### B MP, GFR #### [address] [address] Lymphocytes/100 WBC (Bld) 20.5 % Normal 10.0-50.0 [facility] ([place]) Comment on above: Performed By: #### B MP, GFR #### [address] [address] Monocytes/100 WBC (Bld) 10.5 % Normal 1.7-13.0 A [facility] ([place]) Comment on above: Performed By: #### B MP, GFR #### [address] [address] Neutrophils/100 WBC (Bld) 68.5 % Normal 37.0-80.0 [facility] ([place]) Comment on above: Performed By: #### B MP, GFR #### [address] [address] .GFRon 08-22-2018 GFR Non- 33 ml/min/1.73sqm Normal [facility] ([place]) Comment on above: Result Comment: GFR Population [...] Performed By: #### B MP, GFR #### [place] [address] #### DORY LOPEZ, [facility] #### [place] [address] [address] GFR 40 ml/min/1.73sqm Normal [facility] ([place]) Comment on above: Result Comment: GFR Population [...] Performed By: #### B MP, GFR #### [place] [address] #### CBC, ADIFF, ANEU #### [address] [address] .NEUABSon 08-22-2018 Neutrophils #/vol (Bld) 7.40 10 3/mcL High 2.85-6.16 [facility] ([place]) Comment on above: Performed By: #### B MP, GFR #### [place] [address] BMPon 08-22-2018 Calcium mass conc 8.3 mg/dL Low 8.4-10.2 [facility] ([place]) Comment on above: Performed By: #### B MP, GFR #### [place] [address] #### CBC, ADIFF, ANEU #### [address] [address] Chloride molar conc 104 mmol/L Normal 98-107 [facility] ([place]) Comment on above: Performed By: #### B MP, GFR #### [place] [address] #### CBC, ADIFF, ANEU #### [place] [address] CO2 molar conc 25 mmol/L Normal 23-31 [facility] ([place]) Comment on above: Performed By: #### B MP, GFR #### [place] [address] #### CBC, ADIFF, ANEU #### [place] [address] Creatinine mass conc 1.53 mg/dL High 0.55-1.02 [facility] ([place]) Comment on above: Performed By: #### B MP, GFR #### [place] [address] #### CBC, ADIFF, ANEU #### [place] [address] Electrolyte Balance 10.0 mEq/L Normal [facility] ([place]) Comment on above: Performed By: #### B MP, GFR #### [address] [address] #### CBC, ADIFF, ANEU #### [address] [address] Glucose mass conc 149 mg/dL High 83-110 [facility] ([place]) Comment on above: Performed By: #### B MP, GFR #### [address] [address] #### CBC, ADIFF, ANEU #### [address] [address] Potassium molar conc 4.3 mmol/L Normal 3.5-5.1 [facility] ([place]) Comment on above: Performed By: #### B MP, GFR #### [address] [address] #### CBC, ADIFF, ANEU #### [address] [address] Sodium molar conc 139 mmol/L Normal 136-145 [facility] ([place]) Comment on above: Performed By: #### B MP, GFR #### [address] [address] #### CBC, ADIFF, ANEU #### [address] [address] Urea nitrogen mass conc 32 mg/dL High 7-18 A [facility] ([place]) Comment on above: Performed By: #### B MP, GFR #### [address] [address] #### CBC, ADIFF, ANEU #### [address] [address] Urea nitrogen/Creatinine mass ratio 21 ratio Normal 7-27 [facility] ([place]) Comment on above: Performed By: #### B MP, GFR #### [address] [address] #### CBC, ADIFF, ANEU #### [address] [address] CBCon 08-22-2018 Erythrocyte distribution width Ratio (RBC) 12.6 % Normal 11.5-14.5 [facility] ([place]) Comment on above: Performed By: #### B MP, GFR #### [place] [address] Hematocrit Volume Fraction (Bld) 27.5 % Low 37.0-47.0 [facility] ([place]) Comment on above: Performed By: #### B MP, GFR #### [place] [address] Hemoglobin mass conc (Bld) 9.2 G/dL Low 12.0-16.0 [facility] ([place]) Comment on above: Performed By: #### B MP, GFR #### [place] [address] MCH Entitic mass (RBC) 30.1 pg Normal 27.0-31.2 [facility] ([place]) Comment on above: Performed By: #### B MP, GFR #### [place] [address] MCHC mass conc (RBC) 33.5 G/dL Normal 33.0-37.0 [facility] ([place]) Comment on above: Performed By: #### B MP, GFR #### [place] [address] MCV Entitic volume (RBC) 89.8 fL Normal 80.0-94.0 [facility] ([place]) Comment on above: Performed By: #### B MP, GFR #### [place] [id number] Platelet mean volume Entitic volume (Bld) 9.3 fL Normal 7.4-10.4 [facility] ([place]) Comment on above: Performed By: #### B MP, GFR #### [address] [address] Platelets #/vol (Bld) 224 10 3/mcL Normal 130-400 A [facility] ([place]) Comment on above: Performed By: #### B MP, GFR #### [place] [id number] RBC #/vol (Bld) 3.06 10 6/mcL Low 4.20-5.40 [facility] ([place]) Comment on above: Performed By: #### B MP, GFR #### [address] [address] WBC #/vol (Bld) 10.80 10 3/mcL Normal 4.60-10.80 [facility] ([place]) Comment on above: Performed By: #### B MP, GFR #### [place] [id number] XR KNEE 1 OR 2 VIEWS RIGHTon [...] AM Sign Date: 08/21/2018 9:55:37 AM Normal [facility] ([place]) CT KNEE W/O CONTRAST RIGHTon 08-09-2018 CT [...] PM Sign Date: 08/09/2018 5:04:12 PM Normal [facility] ([place]) .Auto Diffon 08-06-2018 Ammonia mass conc (P) 0.80 10 3/mcL Normal 0.15-1.00 [facility] ([place]) Comment on above: Performed By: #### C DORY SMITH, ANEU #### [place] [address] #### A1C #### [address] [address] Basophils #/vol (Bld) 0.10 10 3/mcL Normal 0.00-0.19 [facility] ([place]) Comment on above: Performed By: #### C DORY SMITH, ANEU #### [place] [address] #### A1C #### [address] [address] Basophils/100 WBC (Bld) 0.6 % Normal 0.0-2.5 A [facility] ([place]) Comment on above: Performed By: #### C DORY SMITH, ANEU #### [place] [address] #### A1C #### [address] [address] Eosinophils #/vol (Bld) 0.20 10 3/mcL Normal 0.00-0.40 [facility] ([place]) Comment on above: Performed By: #### C DORY SMITH, ANEU #### [place] [address] #### A1C #### [address] [address] Eosinophils/100 WBC (Bld) 1.7 % Normal 0.0-7.0 [facility] ([place]) Comment on above: Performed By: #### C KEITH SMITHIFF, ANEU #### [place] [address] #### A1C #### [address] [address] Lymphocytes #/vol (Bld) 1.90 10 3/mcL Normal 0.77-3.85 [facility] ([place]) Comment on above: Performed By: #### C DORY SMITH ANEU #### [address] [address] #### A1C #### [facility] [address] [place] [address] Lymphocytes/100 WBC (Bld) 20.8 % Normal 10.0-50.0 [facility] ([place]) Comment on above: Performed By: #### C DORY SMITH ANEU #### [address] [address] #### A1C #### [address] [address] Monocytes/100 WBC (Bld) 9.3 % Normal 1.7-13.0 A [facility] ([place]) Comment on above: Performed By: #### C DORY SMITH ANEU #### [address] [address] #### A1C #### [address] [address] Neutrophils/100 WBC (Bld) 67.6 % Normal 37.0-80.0 [facility] ([place]) Comment on above: Performed By: #### C DORY SMITH ANEU #### [address] [address] #### A1C #### [address] [address] .GFRon 08-06-2018 GFR 51 ml/min/1.73sqm Normal [facility] ([place]) Comment on above: Result Comment: [...] Performed By: #### B MP, GFR #### [address] [address] GFR Non- 42 ml/min/1.73sqm Normal [facility] ([place]) Comment on above: Result Comment: GFR Population [...] Performed By: #### B MP, GFR #### [place] [address] .NEUABSon 08-06-2018 Neutrophils #/vol (Bld) 6.20 10 3/mcL High 2.85-6.16 [facility] ([place]) Comment on above: Performed By: #### C DORY SMITH ANEU #### [place] [address] [address] #### A1C #### [place] [address] A1Con 08-06-2018 Hemoglobin A1c/Hemoglobin.total mass fraction (Bld) 7.9 % High 4.5-6.2 [facility] ([place]) Comment on above: Performed By: #### DORY SOTO, ANEU #### [address] [address] #### A1C #### [place] [address] BMPon 08-06-2018 Calcium mass conc 9.2 mg/dL Normal 8.4-10.2 [facility] ([place]) Comment on above: Performed By: #### B MP, GFR #### [address] [address] Chloride molar conc 105 mmol/L Normal 98-107 [facility] ([place]) Comment on above: Performed By: #### B MP, GFR #### [place] [id number] CO2 molar conc 27 mmol/L Normal 23-31 [facility] ([place]) Comment on above: Performed By: #### B MP, GFR #### [place] [address] Creatinine mass conc 1.25 mg/dL High 0.55-1.02 [facility] ([place]) Comment on above: Performed By: #### B MP, GFR #### [place] [address] Electrolyte Balance 11.0 mEq/L Normal [facility] ([place]) Comment on above: Performed By: #### B MP, GFR #### [place] [address] Glucose mass conc 70 mg/dL Low 83-110 [facility] ([place]) Comment on above: Performed By: #### B MP, GFR #### [place] [address] Potassium molar conc 5.0 mmol/L Normal 3.5-5.1 [facility] ([place]) Comment on above: Performed By: #### B MP, GFR #### [place] [address] Sodium molar conc 143 mmol/L Normal 136-145 [facility] ([place]) Comment on above: Performed By: #### B MP, GFR #### [place] [id number] Urea nitrogen mass conc 26 mg/dL High 7-18 A [facility] ([place]) Comment on above: Performed By: #### B MP, GFR #### [place] [id number] Urea nitrogen/Creatinine mass ratio 21 ratio Normal 7-27 [facility] ([place]) Comment on above: Performed By: #### B MP, GFR #### [place] [address] CBCon 08-06-2018 Erythrocyte distribution width Ratio (RBC) 12.2 % Normal 11.5-14.5 [facility] ([place]) Comment on above: Performed By: #### C BC ADIFF, ANEU #### [place] [address] #### A1C #### [place] [address] Hematocrit Volume Fraction (Bld) 34.6 % Low 37.0-47.0 [facility] ([place]) Comment on above: Performed By: #### C KEITH SMITHIFF, ANEU #### [address] [address] #### A1C #### [place] [address] Hemoglobin mass conc (Bld) 11.7 G/dL Low 12.0-16.0 [facility] ([place]) Comment on above: Performed By: #### C DORY SMITH, ANEU #### [address] [address] #### A1C #### [address] [address] MCH Entitic mass (RBC) 30.6 pg Normal 27.0-31.2 [facility] ([place]) Comment on above: Performed By: #### C BC, ADIFF, ANEU #### [address] [address] #### A1C #### [place] [address] MCHC mass conc (RBC) 33.7 G/dL Normal 33.0-37.0 [facility] ([place]) Comment on above: Performed By: #### C BC, ADIFF, ANEU #### [address] [address] #### A1C #### [place] [address] MCV Entitic volume (RBC) 90.9 fL Normal 80.0-94.0 [facility] ([place]) Comment on above: Performed By: #### C BC ADIFF, ANEU #### [address] [address] #### A1C #### [place] [address] Platelet mean volume Entitic volume (Bld) 8.8 fL Normal 7.4-10.4 [facility] ([place]) Comment on above: Performed By: #### C BC, ADIFF, ANEU #### [place] [address] #### A1C #### [place] [address] Platelets #/vol (Bld) 355 10 3/mcL Normal 130-400 A [facility] ([place]) Comment on above: Performed By: #### C BCDORY, ANEU #### [place] [id number] #### A1C #### [place] [address] RBC #/vol (Bld) 3.81 10 6/mcL Low 4.20-5.40 [facility] ([place]) Comment on above: Performed By: #### C BC ADIFF, ANEU #### [place] [address] #### A1C #### [place] [address] WBC #/vol (Bld) 9.20 10 3/mcL Normal 4.60-10.80 [facility] ([place]) Comment on above: Performed By: #### C BC ADIFF, ANEU #### [place] [id number] #### A1C #### [place] [address] Vital Signs Date Time Vital Sign Value Performing Clinician Facility 10-02-2024 09:21-0400 Body height 167.[address] Kameron Caruso MD Work Phone: [facility] 10-02-2024 09:21-0400 Diastolic blood pressure 71 mm[Hg] Dr. Kameron Caruso MD Work Phone: [facility] 10-02-2024 09:21-0400 Heart rate 77 /min Dr. Kameron Caruso MD Work Phone: [facility] 10-02-2024 09:21-0400 Respiratory rate 16 /min Dr. Kameron Caruso MD Work Phone: [facility] 10-02-2024 09:21-0400 Systolic blood pressure 111 mm[Hg] Dr. Kameron Caruso MD Work Phone: [facility] 09-09-2024 09:02-0400 Heart rate 100 /min SILVINO RADERLE DO [facility] 09-09-2024 07:58-0400 Blood Pressure Cuff Size SILVINO PALAKATZLE DO [facility] 09-09-2024 07:58-0400 Blood Pressure Location SILVINO PALAKATZLE DO [facility] 09-09-2024 07:58-0400 Blood Pressure Method SILVINO PALAKATZLE DO [facility] 09-09-2024 07:58-0400 Body temperature 96.8 [degF] SILVINO SCHEATZLE DO [facility] 09-09-2024 07:58-0400 Diastolic Blood Pressure Non-Invasive 78 mm[Hg] SILVINO SCHEATZLE DO [facility] 09-09-2024 07:58-0400 Heart rate 110 /min SILVINO PALAKATZLE DO [facility] 09-09-2024 07:58-0400 Reason For Taking VItal Signs SILVINO PALAKATZLE DO [facility] [place] 09-09-2024 07:58-0400 Respiratory rate 16 /min SILVINO CIDATZLE DO [place] [facility] 09-09-2024 07:58-0400 Systolic Blood Pressure Non-Invasive 122 mm[Hg] SILVINO SCHEATZLE DO [place] [facility] 09-09-2024 02:45-0400 Body temperature 97.7 [degF] SILVINO SCHEATZLE DO [place] [facility] 09-09-2024 02:45-0400 Diastolic Blood Pressure Non-Invasive 60 mm[Hg] SILVINO SCHEATZLE DO [place] [facility] 09-09-2024 02:45-0400 Heart rate 92 /min SILVINO SCHEATZLE DO [place] 09-09-2024 02:45-0400 Respiratory rate 16 /min SILVINO CIDATZLE DO [place] [facility] 09-09-2024 02:45-0400 Systolic Blood Pressure Non-Invasive 108 mm[Hg] SILVINO SCHEATZLE DO [place] 09-08-2024 22:28-0400 Blood Pressure Cuff Size SILVINO CIDATZLE DO [place] 09-08-2024 22:28-0400 Blood Pressure Location SILVINO SCHEATZLE DO [place] 09-08-2024 22:28-0400 Blood Pressure Method SILVINO SCHEATZLE DO [place] 09-08-2024 22:28-0400 Body temperature 97.88 [degF] SILVINO SCHEATZLE DO [place] 09-08-2024 22:28-0400 Diastolic Blood Pressure Non-Invasive 54 mm[Hg] SILVINO SCHEATZLE DO [place] [facility] 09-08-2024 22:28-0400 Heart rate 92 /min SILVINO CIDATZLE DO [place] [facility] 09-08-2024 22:28-0400 Reason For Taking VItal Signs SILVINO CIDATZLE DO [place] 09-08-2024 22:28-0400 Respiratory rate 16 /min SILVINO CIDATZLE DO [place] [facility] 09-08-2024 22:28-0400 Systolic Blood Pressure Non-Invasive 118 mm[Hg] SILVINO CIDATZLE DO [place] 09-08-2024 18:21-0400 Heart rate 90 /min SILVINO CIDATZLE DO [place] 09-08-2024 09:08-0400 Blood Pressure Cuff Size SILVINO CIDATZLE DO [place] [facility] 09-08-2024 09:08-0400 Blood Pressure Location SILVINO CIDATZLE DO [place] 09-08-2024 09:08-0400 Blood Pressure Method SILVINO CIDATZLE DO [place] 09-08-2024 09:08-0400 Heart rate 114 /min SILVINO PALAKATZLE DO [place] 09-08-2024 09:08-0400 Reason For Taking VItal Signs SILVINO CIDATZLE DO [facility] 09-04-2024 10:54-0400 Body temperature 96.62 [degF] SILVINO CIDATZLE DO [place] 09-03-2024 00:26-0400 Body temperature 97.34 [degF] SILVINO PALAKATZLE DO [facility] 08-30-2024 22:54-0400 Body temperature 98.06 [degF] SILVINO CIDATZLE DO [facility] 08-26-2024 10:36-0400 Body weight 76 kg SILVINO CIDATZLE DO [facility] 08-19-2024 06:00-0400 Body weight 75.3 kg SILVINO CIDATZLE DO [place] 08-15-2024 14:27-0400 Body height 170.2 cm SILVINO CIDATZLE DO [place] 08-15-2024 14:27-0400 Body weight 75.4 kg SILVINO RADERLE DO [facility] 08-15-2024 14:27-0400 Body weight 26.03 kg/m2 SILVINO HA DO [facility] 08-15-2024 09:02-0400 Diastolic blood pressure 69 mm[Hg] Prema Ramos MD Work Phone: [facility] 08-15-2024 09:02-0400 Systolic blood pressure 128 mm[Hg] Prema Ramos MD Work Phone: [facility] 08-15-2024 07:28-0400 Heart rate 86 /min Prema Ramos MD Work Phone: [facility] 08-15-2024 07:18-0400 Body temperature 97.3 [degF] Prema Ramos MD Work Phone: [facility] 08-15-2024 07:18-0400 Respiratory rate 23 /min Prema Ramos MD Work Phone: [facility] 08-15-2024 07:18-0400 SaO2% (BldA) [Mass fraction] 95 % Prema Ramos MD Work Phone: [facility] 08-05-2024 08:00-0400 Body height 170.2 cm Prema Ramos MD Work Phone: [facility] 08-05-2024 08:00-0400 Body mass index (BMI) [Ratio] 26.94 kg/m2 Prema Ramos MD Work Phone: 4(208)[phone] [address] 08-05-2024 08:00-0400 Body weight 78.02 kg Prema Ramos MD Work Phone: 8(377)254-785405 [address] 08-02-2024 13:52-0400 Body temperature 98 [degF] Dr. Kameron Caruso MD Work Phone: 6(120)[phone] [place] [address] 08-02-2024 13:52-0400 Diastolic blood pressure 91 mm[Hg] Dr. Kameron Caruso MD Work Phone: 1(917)803-426531 [place] [address] 08-02-2024 13:52-0400 Heart rate 109 /min Dr. Kameron Caruso MD Work Phone: 2(355)523-828131 [place] [address] 08-02-2024 13:52-0400 Respiratory rate 16 /min Dr. Kameron Caruso MD Work Phone: 9(863)796-225131 [place] [address] 08-02-2024 13:52-0400 SaO2% (BldA) [Mass fraction] 98 % Dr. Kameron Caruso MD Work Phone: 9(582)[phone] [place] [address] 08-02-2024 13:52-0400 Systolic blood pressure 153 mm[Hg] Dr. Kameron Caruso MD Work Phone: 6(041)704-653031 [place] [address] 08-02-2024 12:46-0400 Body height 167.[address] Kameron Caruso MD Work Phone: 6(623)614-212131 [place] [address] 08-02-2024 12:46-0400 Body mass index (BMI) [Ratio] 26.6 kg/m2 Dr. Kameron Caruso MD Work Phone: 4(044)[phone] [address] 08-02-2024 12:46-0400 Body weight [address] Kameron Caruso MD Work Phone: [facility] 06-26-2024 09:39-0500 Body mass index (BMI) [Ratio] 27.25 kg/m2 Emma Sotomayor PROSTHETIC DENTIST.ALUMINUM BOAT INSPECTOR Work Phone: [facility] 06-26-2024 09:39-0500 Body weight 78.93 kg Emma Sotomayor PROSTHETIC DENTIST.ALUMINUM BOAT INSPECTOR Work Phone: [facility] 06-26-2024 09:39-0500 Diastolic blood pressure 88 mm[Hg] Emma Canaleshof PROSTHETIC DENTIST.ALUMINUM BOAT INSPECTOR Work Phone: [facility] 06-26-2024 09:39-0500 Heart rate 93 /min Emma Sotomayor PROSTHETIC DENTIST.ALUMINUM BOAT INSPECTOR Work Phone: [facility] 06-26-2024 09:39-0500 Respiratory rate 16 /min Emma Sotomayor PROSTHETIC DENTIST.ALUMINUM BOAT INSPECTOR Work Phone: [facility] 06-26-2024 09:39-0500 SaO2% (BldA) [Mass fraction] 98 % Emma Sotomayor PROSTHETIC DENTIST.ALUMINUM BOAT INSPECTOR Work Phone: [facility] 06-26-2024 09:39-0500 Systolic blood pressure 144 mm[Hg] Emma Sotomayor PROSTHETIC DENTIST.ALUMINUM BOAT INSPECTOR Work Phone: [facility] 05-31-2024 08:56-0500 Diastolic blood pressure 84 mm[Hg] Kameron Caruso MD Work Phone: [facility] 05-31-2024 08:56-0500 Systolic blood pressure 136 mm[Hg] Kameron Caruso MD Work Phone: [facility] 05-31-2024 08:47-0500 Body mass index (BMI) [Ratio] 27.28 kg/m2 Kameron Caruso MD Work Phone: [facility] 05-31-2024 08:47-0500 Body weight 79 kg Kameron Caruso MD Work Phone: [facility] 05-31-2024 08:47-0500 Heart rate 100 /min Kameron Caruso MD Work Phone: [facility] 05-31-2024 08:47-0500 Respiratory rate 18 /min Kameron Caruso MD Work Phone: [facility] 11-28-2023 09:42-0400 Diastolic blood pressure 78 mm[Hg] Kameron Caruso MD Work Phone: [facility] 11-28-2023 09:42-0400 Systolic blood pressure 142 mm[Hg] Kameron Caruso MD Work Phone: [facility] 11-28-2023 09:41-0400 Body mass index (BMI) [Ratio] 27.82 kg/m2 Kameron Caruso MD Work Phone: [facility] 11-28-2023 09:41-0400 Body weight 80.56 kg Kameron Caruso MD Work Phone: [facility] 11-28-2023 09:41-0400 Heart rate 68 /min Kameron Caruso MD Work Phone: [facility] 11-28-2023 09:41-0400 Respiratory rate 18 /min Kameron Caruso MD Work Phone: [facility] 10-10-2023 07:31-0400 Body mass index (BMI) [Ratio] 28.35 kg/m2 David Dupree PROSTHETIC DENTIST.ALUMINUM BOAT INSPECTOR Work Phone: [facility] 10-10-2023 07:31-0400 Body temperature 97.5 [degF] David Dupree PROSTHETIC DENTIST.ALUMINUM BOAT INSPECTOR Work Phone: [facility] 10-10-2023 07:31-0400 Body weight 82.1 kg David Dupree PROSTHETIC DENTIST.ALUMINUM BOAT INSPECTOR Work Phone: [facility] 10-10-2023 07:31-0400 Diastolic blood pressure 82 mm[Hg] David Dupree PROSTHETIC DENTIST.ALUMINUM BOAT INSPECTOR Work Phone: [facility] 10-10-2023 07:31-0400 Heart rate 58 /min David Dupree PROSTHETIC DENTIST.ALUMINUM BOAT INSPECTOR Work Phone: [facility] 10-10-2023 07:31-0400 Respiratory rate 18 /min David Pakantonia PROSTHETIC DENTIST.ALUMINUM BOAT INSPECTOR Work Phone: [facility] 10-10-2023 07:31-0400 SaO2% (BldA) [Mass fraction] 100 % David Pakantonia PROSTHETIC DENTIST.ALUMINUM BOAT INSPECTOR Work Phone: [facility] 10-10-2023 07:31-0400 Systolic blood pressure 128 mm[Hg] David Pakantonia PROSTHETIC DENTIST.ALUMINUM BOAT INSPECTOR Work Phone: [facility] 09-29-2023 14:14-0400 Body mass index (BMI) [Ratio] 29 kg/m2 Radha Levine PROSTHETIC DENTIST.ALUMINUM BOAT INSPECTOR Work Phone: [facility] 09-29-2023 14:14-0400 Body temperature 97.81 [degF] Radha Levine PROSTHETIC DENTIST.ALUMINUM BOAT INSPECTOR Work Phone: [facility] 09-29-2023 14:14-0400 Body weight 84 kg Radha Levine PROSTHETIC DENTIST.ALUMINUM BOAT INSPECTOR Work Phone: [facility] 09-29-2023 14:14-0400 Diastolic blood pressure 91 mm[Hg] Radha Levine PROSTHETIC DENTIST.ALUMINUM BOAT INSPECTOR Work Phone: [facility] 09-29-2023 14:14-0400 Heart rate 54 /min Radha Levine PROSTHETIC DENTIST.ALUMINUM BOAT INSPECTOR Work Phone: [facility] 09-29-2023 14:14-0400 Respiratory rate 18 /min Radha Levine PROSTHETIC DENTIST.ALUMINUM BOAT INSPECTOR Work Phone: [facility] 09-29-2023 14:14-0400 SaO2% (BldA) [Mass fraction] 99 % Radha Levine PROSTHETIC DENTIST.ALUMINUM BOAT INSPECTOR Work Phone: [facility] 09-29-2023 14:14-0400 Systolic blood pressure 148 mm[Hg] Radha Levine PROSTHETIC DENTIST.ALUMINUM BOAT INSPECTOR Work Phone: [facility] 05-27-2022 09:42-0500 Body weight 83.83 kg Kameron Caruso MD Work Phone: [facility] 05-27-2022 09:42-0500 Diastolic blood pressure 84 mm[Hg] Kameron Caruso MD Work Phone: [facility] 05-27-2022 09:42-0500 Heart rate 68 /min Kameron Caruso MD Work Phone: [facility] 05-27-2022 09:42-0500 Respiratory rate 16 /min Kameron Caruso MD Work Phone: [facility] 05-27-2022 09:42-0500 Systolic blood pressure 136 mm[Hg] Kameron Caruso MD Work Phone: [facility] 03-02-2022 10:52-0400 Diastolic blood pressure 76 mm[Hg] Emma Tannhof PROSTHETIC DENTIST.ALUMINUM BOAT INSPECTOR Work Phone: [facility] 03-02-2022 10:52-0400 Heart rate 92 /min Emma Tannhof PROSTHETIC DENTIST.ALUMINUM BOAT INSPECTOR Work Phone: [facility] 03-02-2022 10:52-0400 Respiratory rate 18 /min Emma Tannhof PROSTHETIC DENTIST.ALUMINUM BOAT INSPECTOR Work Phone: [facility] 03-02-2022 10:52-0400 Systolic blood pressure 140 mm[Hg] Emma Tannhof PROSTHETIC DENTIST.ALUMINUM BOAT INSPECTOR Work Phone: [facility] 11-23-2021 09:39-0400 Body weight 83.1 kg Kameron Caruso MD Work Phone: [facility] 11-23-2021 09:39-0400 Diastolic blood pressure 80 mm[Hg] Kameron Caruso MD Work Phone: [facility] 11-23-2021 09:39-0400 Heart rate 84 /min Kameron Caruso MD Work Phone: [facility] 11-23-2021 09:39-0400 Respiratory rate 16 /min Kameron Caruso MD Work Phone: [facility] 11-23-2021 09:39-0400 Systolic blood pressure 138 mm[Hg] Kameron Caruso MD Work Phone: [facility] 10-16-2019 10:09-0400 BP Diastolic 72 mm[Hg] Santiago Miller [facility] [place] , [place] 10-16-2019 10:09-0400 BP Systolic 144 mm[Hg] Santiago Miller [facility] [place] , [place] 10-16-2019 10:09-0400 Pulse (Heart Rate) 62 /min Santiago Miller [facility], [place] 10-16-2019 10:09-0400 Pulse Oximetry 98 % Santiago Miller [facility] [place] , [place] 10-16-2019 10:09-0400 Respiratory Rate 18 /min Santiago Miller [facility] [place] 10-16-2019 09:15-0400 BMI (Body Mass Index) 29.44 kg/m2 Santiago Miller [facility], [place] 10-16-2019 09:15-0400 Body Temperature 97.81 [degF] Santiago Miller [facility] [place] 10-16-2019 09:15-0400 Body weight 85.28 kg Santiago Miller [facility] , [place] 10-16-2019 09:15-0400 Height 170.2 cm Santiago Miller [facility] , [place] 01-09-2019 12:06-0400 BP Diastolic 73 mm[Hg] Santiago Miller [facility] , [place] 01-09-2019 12:06-0400 BP Systolic 121 mm[Hg] Santiago Miller [facility] , [place] 01-09-2019 11:50-0400 Pulse (Heart Rate) 64 /min Santiago Miller [facility], [place] 01-09-2019 11:50-0400 Pulse Oximetry 100 % Santiago Miller [facility] , [place] 01-09-2019 11:50-0400 Respiratory Rate 18 /min Santiago Miller [facility] [place] 01-09-2019 10:28-0400 BMI (Body Mass Index) 28.82 kg/m2 Santiago Miller [facility] [place], [place] 01-09-2019 10:28-0400 Body weight 83.46 kg Santiago Miller [facility] , [place] 01-09-2019 10:28-0400 Height 170.2 cm Santiago Jose [facility]- [place] , [place] 01-09-2019 10:040 Body Temperature 97.5 [degF] Santiago Miller [facility] [place] Encounters Encounter Date Encounter Type Care Provider Facility Start: 10-15-2024 ambulatory Kameron Caruso Facilit y:[facility] Start: 10-08-2024 ambulatory Kameron Caruso Facilit y:[facility] Start: 10-02-2024 End: 10-02-[address] Mj Benavides MD -[facility] Work Phone: Start: 10-02-2024 End: 10-02-[address] Kameron Caruso MD Work Phone: [facility] Work Phone: Start: 10-01-2024 ambulatory Kameron Damianlinda Facilit y:[facility] Start: 10-01-2024 Registered Referred Safia Torres Start: 09-29-2024 ambulatory Safia Ruelas OLS Fa cility:[facility] Start: 09-29-2024 Registered Referred Safia Torres Start: 09-24-2024 ambulatory Efsherry Ruelas OLS Fa cility:[facility] Start: 09-24-2024 Registered Referred Safia Torres Start: 09-17-2024 ambulatory Safia Ruelas OLS Fa cility:[facility] Start: 09-17-2024 Registered Referred Safia Torrse Start: 09-11-2024 End: 09-11-2024 ambulatory Kameron Zuly Facility:[facility] Start: 09-10-2024 End: 09-10-2024 ambulatory Kameron Caruso Facility:[facility] Start: 09-10-2024 Registered Referred Safia Torres Start: 08-30-2024 End: 08-30-2024 Telephone encounter Kameron Caruso MD Work Phone: [facility] Comment on above: [facility] amaya augustine verbal agree to follow Start: 08-15-2024 End: 09-09-2024 Evaluation and management of inpatient SILVINO HA DO Tyler Garcia Start: 08-09-2024 Evaluation and manag ement of inpatient KAMERON CARUSO Facility:[facility] Start: 08-06-2024 Evaluation and manag ement of inpatient [facility] Start: 08-02-2024 End: 08-02-2024 ambulatory JUVENTINO VALLEYFORD Facility:[facility] Start: 08-02-2024 End: 08-15-2024 Evaluation and management of inpatient Prema Ramos MD Work Phone: [facility] Start: 08-02-2024 End: 08-02-2024 Emergency department patient visit Dr. Kameron Caruso MD Work Phone: -Emergency Department Work Phone: Start: 07-03-2024 End: 07-03-2024 Telephone encounter Kameron Caruso MD Work Phone: [facility] [place] Comment on above: request for medicati on Start: 07-02-2024 End: 07-02-2024 Telephone encounter Kameron Caruso MD Work Phone: [facility] [place] Comment on above: Faxed Referral Start: 06-28-2024 End: 07-01-2024 Telephone encounter Kameron Caruso MD Work Phone: [facility] [place] Comment on above: medication not on cu rrent med list Start: 06-26-2024 End: 06-26-2024 Office outpatient visit 25 minutes Emma Sotomayor APRN.CNP Work Phone: [facility] [place] Comment on above: Atrial fibrillation, unspecified type (HCC) (Primary Dx); Hypothyroidism, unspecified type; Need for malaria prophylaxis Start: 06-26-2024 End: 06-26-2024 ambulatory EMMA SOTOMAYOR Facility:[facility] Start: 06-25-2024 ambulatory KAMERON CARUSO Facil ity:[facility] Start: 06-24-2024 End: 06-24-2024 Telephone encounter Kameron Caruso MD Work Phone: [facility] [place] Comment on above: Patient Update Start: 06-11-2024 End: 06-11-2024 Telephone encounter Kameron Caruso MD Work Phone: [facility] [place] Comment on above: Results Start: 06-11-2024 End: 06-11-2024 [facility] Start: 06-10-2024 End: 06-11-2024 Telephone encounter Kameron Caruso MD Work Phone: [facility] [place] Comment on above: Medication Problem Start: 05-31-2024 End: 05-31-2024 ambulatory KAMERON DAMIANWIGGINS Facility:[facility] Start: 05-31-2024 End: 05-31-2024 Patient encounter procedure Kameron Caruso MD Work Phone: [facility] [place] Comment on above: Essential [...] unspecified type (HCC) Start: 05-23-2024 End: 05-23-2024 ambulatory KAMERON CARUSO Facility:[facility] Start: 11-28-2023 End: 11-28-2023 ambulatory KAMERON Concepción [facility] Facility:[facility] Start: 11-28-2023 End: 11-28-2023 Patient encounter procedure Kameron Caruso MD Work Phone: [facility] [place] Comment on above: 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, unspecified CKD stage, unspecified whether termite exterminator insulin use (HCC) (Primary Dx); Essential hypertension, benign; Chronic kidney disease, stage 3a (HCC); Hyperlipidemia, unspecified hyperlipidemia type; Hypothyroidism, unspecified type; Edema of left lower leg; Memory loss; Type 2 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, without long-term current use of insulin (HCC) Start: 11-27-2023 End: 11-27-2023 ambulatory KAMERON Beebe [facility] Facility:[facility] Start: 10-10-2023 End: 10-10-2023 ambulatory [facility] Facility:[facility] Start: 10-10-2023 End: 10-10-2023 Office outpatient visit 25 minutes David Dupree APRN.ALUMINUM BOAT INSPECTOR Work Phone: [facility] Comment on above: Rash (Primary Dx) Start: 09-29-2023 End: 09-29-2023 ambulatory [facility] Facility:[facility] Start: 09-29-2023 End: 09-29-2023 Patient encounter procedure Radha Camacho WEATHERS.ALUMINUM BOAT INSPECTOR Work Phone: [facility] Comment on above: Allergic contact lexi matitis due to plant (Primary Dx) Start: 09-19-2023 Refill Kameron nixon MD Work Phone: [facility] [place] Comment on above: Refill Request Start: 04-08-2023 Telephone encounter Kameron bucio MD Work Phone: [address] [place] [address] Comment on above: Refill Request Start: 11-25-2022 Telephone encounter Kameron bucio MD Work Phone: [facility] [place] Comment on above: Patient Question Start: 05-27-2022 End: 05-27-2022 Patient encounter procedure Kameron Caruso MD Work Phone: [facility] [place] Comment on above: Essential hypertensi on, benign (Primary Dx); Hypothyroidism, unspecified type; Type 2 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, without long-term current use of insulin (HCC); Hyperlipidemia, unspecified hyperlipidemia type; Chronic kidney disease, stage 3a (HCC); Edema of left lower leg; Wellness examination Start: 05-27-2022 End: 05-27-2022 Patient encounter status Kameron Caruso MD Work Phone: [facility] Start: 04-11-2022 Refill Kameron nixon MD Work Phone: [facility] Comment on above: Refill Request Start: 03-02-2022 ambulatory Kameron nixon MD Work Phone: [facility] [place] Comment on above: Back Pain Start: 03-02-2022 End: 03-02-2022 Patient encounter procedure Emma Sotomayor JASIEL.ALUMINUM BOAT INSPECTOR Work Phone: [facility] [place] Comment on above: Acute midline low ba ck pain without sciatica (Primary Dx) Start: 01-11-2022 Refill Mj ORTIZ RN.ALUMINUM BOAT INSPECTOR Work Phone: [facility] Comment on above: Refill Request Start: 01-11-2022 Refill Kameron nixon MD Work Phone: [facility] Comment on above: Refill Request Start: 12-16-2021 Telephone encounter Kameron bucio MD Work Phone: [facility] Comment on above: Diabetic Testing Sup plies Start: 11-23-2021 End: 11-23-2021 Refill Kameron Caruso MD Work Phone: [facility] Comment on above: 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, unspecified CKD stage, unspecified whether intermediate insulin use (HCC) (Primary Dx); Essential hypertension, benign; Hyperlipidemia, unspecified hyperlipidemia type; Stage 3b chronic kidney disease (HCC); Hypothyroidism, unspecified type; Memory loss Start: 10-14-2021 Refill Kameron nixon MD Work Phone: [facility] Comment on above: Refill Request Start: 09-27-2021 Telephone encounter Kameron bucio MD Work Phone: [facility] Comment on above: information requeste d/rxs needed Start: 09-13-2021 Telephone encounter Kameron bucio MD Work Phone: [facility] Comment on above: Patient Question; Me dication Request Start: 10-16-2019 End: 10-16-2019 Subsequent hospital visit by physician Santiago Jose Work Phone: [facility] Comment on above: Arrived Start: 01-09-2019 End: 01-09-2019 Subsequent hospital visit by physician Santiago Jose Work Phone: [facility] [address] [facility] Start: 08-21-2018 End: 08-22-2018 Patient encounter procedure KETTY Anjelica DOWNS Facility:B Start: 07-23-2018 Patient encounter procedure KETTY Anjelica DOWNS Facility:[facility] Procedures Date Procedure Procedure Detail Performing Clinician Start: 09-29-[address] e detection Dr. Kameron Caruso MD Work Phone: Start: 08-15-2024 CARDIAC RHYTHM (SCANNED) Other Other OT Start: 08-15-2024 Glucose measurement, blood Christos Voss MD Work Phone: Start: 08-15-2024 Glucose measurement, elana Voss MD Work Phone: Start: 08-15-2024 Assay of magnesium Abram Mccoy PROSTHETIC DENTIST-ALUMINUM BOAT INSPECTOR Work Phone: Start: 08-15-2024 Glucose measurement, blood Christos Voss MD Work Phone: Start: 08-14-2024 Glucose measurement, blood Christos Voss MD Work Phone: Start: 08-14-2024 Glucose measurement, elana Voss MD Work Phone: Start: 08-14-2024 Glucose measurement, blood Christos Voss MD Work Phone: Start: 08-14-2024 Assay of magnesium Abram Mccoy PROSTHETIC DENTIST-ALUMINUM BOAT INSPECTOR Work Phone: Start: 08-13-2024 Glucose measurement, blood Christos Voss MD Work Phone: Start: 08-13-2024 Glucose measurement, elana Voss MD Work Phone: Start: 08-13-2024 Glucose measurement, blood Christos Voss MD Work Phone: Start: 08-13-2024 Glucose measurement, blood Felicity Castellano MD Work Phone: Start: 08-13-2024 Assay of magnesium Nase rin Jaiden Nadine PROSTHETIC DENTIST-ALUMINUM BOAT INSPECTOR Work Phone: Start: 08-13-2024 Glucose measurement, blood Felicity Castellano MD Work Phone: Start: 08-12-2024 Glucose measurement, blood Felicity Castellano MD Work Phone: Start: 08-12-2024 Glucose measurement, blood Felicity Castellano MD Work Phone: Start: 08-12-2024 Glucose measurement, blood Felicity Castellano MD Work Phone: Start: 08-12-2024 Assay of magnesium Abdoule scott Hwang Nadine PROSTHETIC DENTIST-ALUMINUM BOAT INSPECTOR Work Phone: Start: 08-12-2024 Glucose measurement, blood Felicity Castellano MD Work Phone: Start: 08-11-2024 Glucose measurement, blood Felicity Castellano MD Work Phone: Start: 08-11-2024 Glucose measurement, blood Felicity Castellano MD Work Phone: Start: 08-11-2024 Glucose measurement, blood Felicity Castellano MD Work Phone: Start: 08-11-2024 Assay of magnesium Abdoule scott Hwang Nadine PROSTHETIC DENTIST-ALUMINUM BOAT INSPECTOR Work Phone: Start: 08-10-2024 Glucose measurement, blood Felicity Castellano MD Work Phone: Start: 08-10-2024 Glucose measurement, blood Felicity Castellano MD Work Phone: Start: 08-10-2024 End: 08-10-2024 Culture bacterial blood aerobic w/id isolates Radha Gr PROSTHETIC DENTIST-ALUMINUM BOAT INSPECTOR Work Phone: Start: 08-10-2024 Glucose measurement, blood Felicity Castellano MD Work Phone: Start: 08-10-2024 End: 08-10-2024 Glucose measurement, blood Feliciyt Castellano MD Work Phone: Start: 08-10-2024 Glucose measurement, blood Felicity Castellano MD Work Phone: Start: 08-10-2024 Assay of magnesium Abram Hwang Nadine PROSTHETIC DENTIST-ALUMINUM BOAT INSPECTOR Work Phone: Start: 08-10-2024 Glucose measurement, blood [...] 08-09-2024 Assay of magnesium Abram Hwang Nadine PROSTHETIC DENTIST-ALUMINUM BOAT INSPECTOR Work Phone: Start: 08-09-2024 Glucose measurement, blood Felicity Castellano MD Work Phone: Start: 08-08-2024 Glucose measurement, blood Felicity Castellano MD Work Phone: Start: 08-08-2024 Culture bct isol&prs mptv id isolate ea urine Bella Cardenas PROSTHETIC DENTIST-ALUMINUM BOAT INSPECTOR Work Phone: Start: 08-08-2024 EXTRA MICRO Bella matthews PROSTHETIC DENTIST-ALUMINUM BOAT INSPECTOR Work Phone: Start: 08-08-2024 URINALYSIS REFLEX TO CULTURE Bella Cardenas PROSTHETIC DENTIST-ALUMINUM BOAT INSPECTOR Work Phone: Start: 08-08-2024 Ct head/brain w/o co ntrast material Bella Cardenas PROSTHETIC DENTIST-ALUMINUM BOAT INSPECTOR Work Phone: Start: 08-08-2024 Glucose measurement, blood Felicity Castellano MD Work Phone: Start: 08-08-2024 End: 08-08-2024 Glucose measurement, blood Felicity Castellano MD Work Phone: Start: 08-08-2024 Assay of magnesium Abram Mccoy PROSTHETIC DENTIST-ALUMINUM BOAT INSPECTOR Work Phone: Start: 08-07-2024 Glucose measurement, blood Felicity Castellano MD Work Phone: Start: 08-07-2024 Glucose measurement, blood Felicity Castellano MD Work Phone: Start: 08-07-2024 Glucose measurement, blood Felicity Castellano MD Work Phone: Start: 08-07-2024 Glucose measurement, blood Felicity Castellano MD Work Phone: Start: 08-06-2024 Glucose measurement, blood Felicity Castellano MD Work Phone: Start: 08-06-2024 Assay of magnesium Abram Mccoy PROSTHETIC DENTIST-ALUMINUM BOAT INSPECTOR Work Phone: Start: 08-06-2024 Glucose measurement, blood Felicity Castellano MD Work Phone: Start: 08-06-2024 Glucose measurement, blood Felicity Castellano MD Work Phone: Start: 08-06-2024 Radiologic exam swal low function contrast study Shanna Russ PROSTHETIC DENTIST-ALUMINUM BOAT INSPECTOR Work Phone: Start: 08-06-2024 SPEECH MODIFIED KEAGAN UM SWALLOW Shanna Russ PROSTHETIC DENTIST-ALUMINUM BOAT INSPECTOR Work Phone: Start: 08-06-2024 Glucose measurement, blood Felicity Castellano MD Work Phone: Start: 08-05-2024 Glucose measurement, blood Felicity Castellano MD Work Phone: Start: 08-05-2024 Assay of magnesium Abram Hwang Nadine PROSTHETIC DENTIST-ALUMINUM BOAT INSPECTOR Work Phone: Start: 08-05-2024 Glucose measurement, blood Felicity Castellano MD Work Phone: Start: 08-05-2024 Glucose measurement, blood Felicity Castellano MD Work Phone: Start: 08-05-2024 Echo tthrc r-t 2d w/wom-mode compl spec&colr d Taran Traore PROSTHETIC DENTIST-ALUMINUM BOAT INSPECTOR Work Phone: Start: 08-05-2024 Glucose measurement, blood Felicity Castellano MD Work Phone: Start: 08-05-2024 Assay of magnesium Abram Hwang Nadine PROSTHETIC DENTIST-ALUMINUM BOAT INSPECTOR Work Phone: Start: 08-05-2024 Glucose measurement, blood [...] Work Phone: Start: 08-04-2024 Assay of magnesium Abdoule scott Hwang Nadine PROSTHETIC DENTIST-ALUMINUM BOAT INSPECTOR Work Phone: Start: 08-04-2024 Glucose measurement, blood Richard Mejia MD Work Phone: Start: 08-03-2024 Ct head/brain w/o co ntrast material Shaila L Jadeupak PA-C Start: 08-03-2024 Sodium serum plasma or whole blood Shanna Denise MD Work Phone: Start: 08-03-2024 Glucose measurement, blood Richard Mejia MD Work Phone: Start: 08-03-2024 Radiologic exam abdo men 1 view Balbir Mccoy PROSTHETIC DENTIST-ALUMINUM BOAT INSPECTOR Work Phone: Start: 08-03-2024 Glucose measurement, blood [...] Mri brain brain stem w/o contrast material Taran Traore PROSTHETIC DENTIST-ALUMINUM BOAT INSPECTOR Work Phone: Start: 08-03-2024 ABORH TYPE RECONFIRMATION Cindy CORDOVA Work Phone: Start: 08-03-2024 Assay of magnesium Abram Mccoy PROSTHETIC DENTIST-ALUMINUM BOAT INSPECTOR Work Phone: Start: 08-02-2024 Glucose measurement, blood [...] Performed By: #### X M #### [facility] ([facility]) [address] [place] [address] Start: 08-02-2024 EXTRA MICRO Taran Traore PROSTHETIC DENTIST-ALUMINUM BOAT INSPECTOR Work Phone: Start: 08-02-2024 Hemoglobin glycosylated a1c Balbir Cardenash PROSTHETIC DENTIST-ALUMINUM BOAT INSPECTOR Work Phone: Start: 08-02-2024 Hepatic function panel Balbir Mccoy PROSTHETIC DENTIST-ALUMINUM BOAT INSPECTOR Work Phone: Start: 08-02-2024 Iadna s aureus ampli fied probe tq Balbir Cardenash PROSTHETIC DENTIST-ALUMINUM BOAT INSPECTOR Work Phone: Start: 08-02-2024 URINALYSIS REFLEX TO CULTURE Taran Traore PROSTHETIC DENTIST-ALUMINUM BOAT INSPECTOR Work Phone: Start: 08-02-2024 Urnls dip stick/tabl et reagent auto microscopy Taran Traore PROSTHETIC DENTIST-ALUMINUM BOAT INSPECTOR Work Phone: Start: 08-02-2024 SARS-CoV-2, Influenz a [...] Author Start: 08-15-2025 Complete blood count Hemoglobin/Hematocrit [facility] Start: 08-15-2025 Creatinine measurement Serum Creatinine [facility] Start: 08-02-2025 Thyroid stimulating hormone measurement [facility] Start: 06-26-2025 Annual PCP Team Chronic Disease Visit Annual PCP Team Chronic Disease Visit [facility] Start: 05-31-2025 Annual PCP Team Chronic Disease Visit Annual PCP Team Chronic Disease Visit [facility] Start: 05-31-2025 Covid-19 Vaccine ( season) Covid-19 Vaccine ( season) [facility] Comment on above: Postponed from 01/14/2024 (Declined at t his time) Start: 05-31-2025 Pneumococcal Vaccine: 50+ (2 of 2 - PPSV23) Pneumococcal Vaccine: 50+ (2 of 2 - PPSV23) [facility] Comment on above: Postponed from 12/19/2019 (Declined at t his time) Start: 05-23-2025 Creatinine measurement Serum Creatinine [facility] Start: 05-23-2025 Hepatitis B screening Urine Albumin:Creatinine Ratio [facility] Start: 05-23-2025 Hepatitis B surface antibody level LDL Cholesterol [facility] Start: 02-02-2025 Hemoglobin A1c measurement HbA1C [place] [place] [facility] Start: 01-13-2025 Influenza vaccination [facility] Start: 01-03-2025 Glaucoma screening Dilated Retinal Exam [facility] Start: 12-24-2024 End: 12-24-2024 Patient encounter procedure 12/24/2024 9:20 AM EDT Office Visit Family [place] [facility] [address] [place] [id number] Kameron Caruso MD [address] [place], [place] [id number] 6 month follow up Family [place] [facility] Comment on above: 6 month follow up Start: 11-28-2024 End: 02-27-2025 Comprehensive metabolic 2000 panel - Serum or Plasma COMPREHENSIVE METABOLIC PANEL Lab Routine Essential hypertension, benign Chronic kidney disease, stage 3a (HCC) Hyperlipidemia, unspecified hyperlipidemia type Expected: 11/28/2024 (Approximate), Expires: 02/27/2025 [facility] Work Phone: Comment on above: Expected: 11/28/2024 (Approximate), Expi res: 02/27/2025 Start: 11-28-2024 End: 02-27-2025 Hemoglobin A1c in Blood HEMOGLOBIN A1C Lab Routine Expected: 11/28/2024 (Approximate), Expires: 02/27/2025 [facility] Comment on above: Expected: 11/28/2024 (Approximate), Expi res: 02/27/2025 Start: 11-28-2024 End: 02-27-2025 Lipid 1996 panel - Serum or Plasma LIPID PANEL BASIC Lab Routine Essential hypertension, benign Hyperlipidemia, unspecified hyperlipidemia type Expected: 11/28/2024 (Approximate), Expires: 02/27/2025 [facility] Comment on above: Expected: 11/28/2024 (Approximate), Expi res: 02/27/2025 Start: 11-28-2024 End: 02-27-2025 Thyrotropin [Units/volume] in Serum or Plasma THYROID STIMULATING HORMONE Lab Routine Hypothyroidism, unspecified type Expected: 11/28/2024 (Approximate), Expires: 02/27/2025 [facility] Comment on above: Expected: 11/28/2024 (Approximate), Expi res: 02/27/2025 Start: 11-27-2024 Annual PCP Team Chronic Disease Visit Annual PCP Team Chronic Disease Visit [facility] Start: 11-27-2024 Anxiety Screening Anxiety Screening [facility] Start: 11-27-2024 Depression Screening Depression Screening [facility] Start: 11-27-2024 RSV Vaccine (1 - 1-dose 60+ series) RSV Vaccine (1 - 1-dose 60+ series) [facility] Comment on above: Postponed from 2004 (Declined at t his time) Start: 11-27-2024 RSV Vaccine (1 - 1-dose 75+ series) RSV Vaccine (1 - 1-dose 75+ series) [facility] Comment on above: Postponed from 10/26/2019 (Declined at t his time) Start: 11-26-2024 Creatinine measurement Serum Creatinine [facility] Start: 11-26-2024 Hepatitis B surface antibody level LDL Cholesterol [facility] Start: 11-20-2024 Hemoglobin A1c measurement HbA1C [facility] Start: 11-11-2024 Influenza vaccination Influ[facility] Vaccine (#1) [facility] Comment on above: Postponed from 01/14/2024 (Declined at t his time) Start: 10-08-2024 End: 10-08-2024 ambulatory [facility] Start: 10-02-2024 Evaluation of diagnostic study results 12 Lead EKG performed by [facility] Start: 08-02-2024 [facility] Start: 08-02-2024 SARS-CoV-2, Influenza & RSV (PCR) SARS-CoV-2, Influenza & RSV (PCR) [facility] Start: 08-02-2024 End: 08-02-2024 [facility] Start: 08-02-2024 Electrocardiographic procedure [facility] Start: 08-02-2024 Oxygen therapy [facility] Start: 07-24-2024 End: 10-23-2024 Thyrotropin [Units/volume] in Serum or Plasma THYROID STIMULATING HORMONE Lab Routine Hypothyroidism, unspecified type Expected: 07/24/2024, Expires: 10/23/2024 [facility] Work Phone: Comment on above: Expected: 07/24/2024, Expires: Start: 07-24-2024 End: 10-23-2024 Thyroxine (T4) free [Mass/volume] in Serum or Plasma T4 FREE/FREE THYROXINE Lab Routine Hypothyroidism, unspecified type Expected: 07/24/2024, Expires: 10/23/2024 [facility] Comment on above: Expected: 07/24/2024, Expires: Start: 06-25-2024 End: 06-25-2024 Patient encounter procedure 06/25/2024 9:40 AM EST Office Visit Family [facility] [address], [place] [id number] Kameron Caruso MD [address] [place], [place] [id number] 1 mo f/u, new dx afib. [facility] Comment on above: 1 mo f/u, new dx afib. Start: 06-11-2024 End: 06-11-2024 Patient encounter procedure 06/11/2024 8:50 AM EST Office Visit Cardiology [address] [place], [place] [id number] Atrial fibrillation, unspecified type (HCC) [I48.91] Cardiology Comment on above: Atrial fibrillation, unspecified type (H CC) [I48.91] Start: 05-30-2024 Annual PCP Team Chronic Disease Visit Annual PCP Team Chronic Disease Visit [facility] Start: 05-30-2024 End: 08-29-2024 Comprehensive metabolic 2000 panel - Serum or Plasma COMPREHENSIVE METABOLIC PANEL Lab Routine Type 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, unspecified CKD stage, unspecified whether intermediate insulin use (HCC) Essential hypertension, benign Chronic kidney disease, stage 3a (HCC) Hyperlipidemia, unspecified hyperlipidemia type Expected: 05/30/2024 (Approximate), Expires: 08/29/2024 [facility] Work Phone: Comment on above: Expected: 05/30/2024 (Approximate), Expi res: 08/29/2024 Start: 05-30-2024 Covid-19 Vaccine ( season) Covid-19 Vaccine ( season) [facility] Comment on above: Postponed from 01/13/2023 (Declined at t his time) Start: 05-30-2024 End: 08-29-2024 Hemoglobin A1c in Blood HEMOGLOBIN A1C Lab Routine Type 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, unspecified CKD stage, unspecified whether intermediate insulin use (HCC) Expected: 05/30/2024 (Approximate), Expires: 08/29/2024 [facility] Comment on above: Expected: 05/30/2024 (Approximate), Expi res: 08/29/2024 Start: 05-30-2024 Hepatitis C screening Hepatitis C Screening [facility] Comment on above: Postponed from 1962 (Declined at t his time) Start: 05-30-2024 End: 08-29-2024 Lipid 1996 panel - Serum or Plasma LIPID PANEL BASIC Lab Routine Type 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, unspecified CKD stage, unspecified whether termite exterminator insulin use (HCC) Essential hypertension, benign Hyperlipidemia, unspecified hyperlipidemia type Expected: 05/30/2024 (Approximate), Expires: 08/29/2024 [facility] Comment on above: Expected: 05/30/2024 (Approximate), Expi res: 08/29/2024 Start: 05-30-2024 End: 08-29-2024 Microalbumin/Creatinine [Mass Ratio] in Urine ALBUMIN/CREATININE RATIO, URINE Lab Routine Type 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, unspecified CKD stage, unspecified whether intermediate insulin use (HCC) Expected: 05/30/2024 (Approximate), Expires: 08/29/2024 [facility] Comment on above: Expected: 05/30/2024 (Approximate), Expi res: 08/29/2024 Start: 05-30-2024 Pneumococcal Vaccine: 65+ (2 of 2 - PPSV23 or PCV20) Pneumococcal Vaccine: 65+ (2 of 2 - PPSV23 or PCV20) [facility] Comment on above: Postponed from 12/19/2019 (Declined at t his time) Start: 05-30-2024 End: 08-29-2024 Thyrotropin [Units/volume] in Serum or Plasma THYROID STIMULATING HORMONE Lab Routine Hypothyroidism, unspecified type Expected: 05/30/2024 (Approximate), Expires: 08/29/2024 [facility] Comment on above: Expected: 05/30/2024 (Approximate), Expi res: 08/29/2024 Start: 05-30-2024 End: 05-30-2024 Patient encounter procedure 05/30/2024 9:40 AM EST Office Visit Family [facility] [address] [place] [address] Kameron Caruso MD [address] [place] [address] 6 mo f/u Family [facility] Comment on above: 6 mo f/u Start: 05-29-2024 Hemoglobin A1c measurement HbA1C [facility] Start: 05-16-2024 Creatinine measurement Serum Creatinine [facility] Start: 05-16-2024 Hepatitis B screening Urine Albumin:Creatinine Ratio [facility] Start: 05-16-2024 Hepatitis B surface antibody level LDL Cholesterol [facility] Start: 05-15-2024 Advance Directive Discussion Advance Directive Discussion [facility] Start: 01-14-2024 Influenza vaccination [facility] Start: 01-14-2024 [facility] Start: 01-04-2024 Glaucoma screening Dilated Retinal Exam [facility] Start: 01-04-2024 Hepatitis C antibody, confirmatory test Dilated Retinal Exam [facility] Start: 11-28-2023 End: 11-28-2023 Patient encounter procedure 11/28/2023 9:40 AM EDT Office Visit Family [facility] [address] [place] [address] Kameron Caruso MD [address] [place] [address] 6 mo follow up Family [facility] Comment on above: 6 mo follow up Start: 11-26-2023 ANNUAL PCP TEAM CHRONIC DISEASE VISIT ANNUAL PCP TEAM CHRONIC DISEASE VISIT [facility] Start: 11-26-2023 BP CONTROLLED (<130/80) BP CONTROLLED (<130/80) [facility] Start: 11-23-2023 Complete blood count Hemoglobin/Hematocrit [facility] Start: 11-23-2023 HEMOGLOBIN/HEMATOCRIT HEMOGLOBIN/HEMATOCRIT [facility] Start: 11-23-2023 Hepatitis B surface antibody level LDL CHOLESTEROL [facility] Start: 11-23-2023 SERUM CREATININE SERUM CREATININE [facility] Start: 11-14-2023 Hemoglobin A1c measurement HbA1C [facility] Start: 05-27-2023 ANNUAL PCP TEAM CHRONIC DISEASE VISIT ANNUAL PCP TEAM CHRONIC DISEASE VISIT [facility] Start: 05-27-2023 COVID-19 VACCINE (2 - Booster for Alyssa series) COVID-19 VACCINE (2 - Booster for Alyssa series) [facility] Comment on above: Postponed from 09/17/2020 (Declined at t his time) Start: 05-27-2023 HEPATITIS C SCREENING HEPATITIS C SCREENING [facility] Comment on above: Postponed from 1962 (Declined at t his time) Start: 05-25-2023 Hemoglobin A1c/Hemoglobin.total in Blood HBA1C [facility] Start: 05-19-2023 HEMOGLOBIN/HEMATOCRIT HEMOGLOBIN/HEMATOCRIT [facility] Start: 05-19-2023 Hepatitis B surface antibody level LDL CHOLESTEROL [facility] Start: 05-19-2023 SERUM CREATININE SERUM CREATININE [facility] Start: 05-15-2023 Advance Directive Discussion Advance Directive Discussion [facility] Start: 05-15-2023 Behavioral Health Screening Behavioral Health Screening [facility] Start: 03-02-2023 ANNUAL PCP TEAM CHRONIC DISEASE VISIT ANNUAL PCP TEAM CHRONIC DISEASE VISIT [facility] Start: 01-13-2023 Covid-19 Vaccine ( season) Covid-19 Vaccine ( season) [facility] Start: 01-13-2023 Influenza vaccination [facility] Start: 12-27-2022 Hepatitis C antibody, confirmatory test DILATED RETINAL EXAM [facility] Start: 11-24-2022 End: 01-24-2023 CBC panel - Blood by Automated count CBC Lab Routine Essential hypertension, benign Hypothyroidism, unspecified type Expected: 11/24/2022 (Approximate), Expires: 01/24/2023 [facility] Work Phone: Comment on above: Expected: 11/24/2022 (Approximate), Expi res: 01/24/2023 Start: 11-24-2022 End: 01-24-2023 Comprehensive metabolic 2000 panel - Serum or Plasma COMP METABOLIC PANEL Lab Routine Essential hypertension, benign Type 2 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, without long-term current use of insulin (HCC) Hyperlipidemia, unspecified hyperlipidemia type Expected: 11/24/2022 (Approximate), Expires: 01/24/2023 [facility] Work Phone: Comment on above: Expected: 11/24/2022 (Approximate), Expi res: 01/24/2023 Start: 11-24-2022 End: 01-24-2023 Hemoglobin A1c in Blood HGB A1C Lab Routine Type 2 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, without long-term current use of insulin (HCC) Expected: 11/24/2022 (Approximate), Expires: 01/24/2023 [facility] Work Phone: Comment on above: Expected: 11/24/2022 (Approximate), Expi res: 01/24/2023 Start: 11-24-2022 End: 01-24-2023 Lipid 1996 panel - Serum or Plasma LIPID PANEL BASIC Lab Routine Essential hypertension, benign Type 2 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, without long-term current use of insulin (HCC) Hyperlipidemia, unspecified hyperlipidemia type Expected: 11/24/2022 (Approximate), Expires: 01/24/2023 [facility] Work Phone: Comment on above: Expected: 11/24/2022 (Approximate), Expi res: 01/24/2023 Start: 11-24-2022 End: 01-24-2023 Thyrotropin [Units/volume] in Serum or Plasma TSH BLD Lab Routine Hypothyroidism, unspecified type Expected: 11/24/2022 (Approximate), Expires: 01/24/2023 [facility] Work Phone: Comment on above: Expected: 11/24/2022 (Approximate), Expi res: 01/24/2023 Start: 11-23-2022 3 comp foot exam [facility] Start: 11-23-2022 ANNUAL PCP TEAM CHRONIC DISEASE VISIT ANNUAL PCP TEAM CHRONIC DISEASE VISIT [facility] Start: 11-23-2022 Diabetic foot examination Diabetic Foot Exam [facility] Start: 11-20-2022 Hepatitis B screening URINE ALBUMIN:CREATININE RATIO [facility] Start: 11-20-2022 Hepatitis B surface antibody level LDL CHOLESTEROL [facility] Start: 11-20-2022 SERUM CREATININE SERUM CREATININE [facility] Start: 11-16-2022 Hemoglobin A1c/Hemoglobin.total in Blood HBA1C [facility] Start: 11-11-2022 Influenza vaccination INFLUENZA (#1) [facility] Comment on above: Postponed from 01/13/2022 (Declined at t his time) Start: 05-26-2022 End: 07-26-2022 CBC panel - Blood by Automated count CBC Lab Routine Essential hypertension, benign Stage 3b chronic kidney disease (HCC) Expected: 05/26/2022 (Approximate), Expires: 07/26/2022 [facility] Work Phone: Comment on above: Expected: 05/26/2022 (Approximate), Expi res: 07/26/2022 Start: 05-26-2022 End: 07-26-2022 Comprehensive metabolic 2000 panel - Serum or Plasma COMP METABOLIC PANEL Lab Routine Type 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, unspecified CKD stage, unspecified whether termite exterminator insulin use (HCC) Essential hypertension, benign Hyperlipidemia, unspecified hyperlipidemia type Stage 3b chronic kidney disease (HCC) Expected: 05/26/2022 (Approximate), Expires: 07/26/2022 [facility] Work Phone: Comment on above: Expected: 05/26/2022 (Approximate), Expi res: 07/26/2022 Start: 05-26-2022 End: 07-26-2022 Hemoglobin A1c in Blood HGB A1C Lab Routine Type 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, unspecified CKD stage, unspecified whether intermediate insulin use (HCC) Expected: 05/26/2022 (Approximate), Expires: 07/26/2022 [facility] Work Phone: Comment on above: Expected: 05/26/2022 (Approximate), Expi res: 07/26/2022 Start: 05-26-2022 End: 07-26-2022 Lipid 1996 panel - Serum or Plasma LIPID PANEL BASIC Lab Routine Essential hypertension, benign Hyperlipidemia, unspecified hyperlipidemia type Expected: 05/26/2022 (Approximate), Expires: 07/26/2022 [facility] Work Phone: Comment on above: Expected: 05/26/2022 (Approximate), Expi res: 07/26/2022 Start: 05-26-2022 End: 07-26-2022 Thyrotropin [Units/volume] in Serum or Plasma TSH BLD Lab Routine Hypothyroidism, unspecified type Expected: 05/26/2022 (Approximate), Expires: 07/26/2022 [facility] Work Phone: Comment on above: Expected: 05/26/2022 (Approximate), Expi res: 07/26/2022 Start: 05-23-2022 Hemoglobin A1c/Hemoglobin.total in Blood HBA1C [facility] Start: 05-18-2022 ANNUAL PCP TEAM CHRONIC DISEASE VISIT ANNUAL PCP TEAM CHRONIC DISEASE VISIT [facility] Start: 05-17-2022 Hepatitis B surface antibody level LDL CHOLESTEROL [facility] Start: 05-17-2022 SERUM CREATININE SERUM CREATININE [facility] Start: 05-15-2022 ADVANCE DIRECTIVE DISCUSSION ADVANCE DIRECTIVE DISCUSSION [facility] Start: 01-13-2022 Influenza vaccination [facility] Start: 01-11-2022 Hepatitis C antibody, confirmatory test DILATED RETINAL EXAM [facility] Start: 11-14-2021 Hemoglobin A1c/Hemoglobin.total in Blood HBA1C [facility] Start: 11-06-2021 Screening for malignant neoplasm of breast [facility] Start: 11-05-2021 3 comp foot exam completed DIABETIC FOOT EXAM [facility] Start: 11-05-2021 Adult depression screening assessment DEPRESSION SCREENING [facility] Start: 11-04-2021 Hepatitis B screening URINE ALBUMIN:CREATININE RATIO [facility] Start: 10-15-2021 Hepa vaccine adult dose for intramuscular use HEPATITIS A VACCINE ADULT IM Immunization/Injection Routine Need for vaccination Expected: 10/15/2021 [facility] Work Phone: Comment on above: Expected: 10/15/2021 Start: 10-15-2021 Tdap vaccine 7 yrs/> im TDAP VACCINE AGE 7+ IM Immunization/Injection Routine Need for vaccination Expected: 10/15/2021 [facility] Work Phone: Comment on above: Expected: 10/15/2021 Start: 05-15-2021 ADVANCE DIRECTIVE DISCUSSION ADVANCE DIRECTIVE DISCUSSION [facility] Start: 05-15-2021 DEPRESSION ASSESSMENT DEPRESSION ASSESSMENT [facility] Start: 10-23-2020 PNEUMOCOCCAL: 65+ (2 - PPSV23 if available, else PCV20) PNEUMOCOCCAL: 65+ (2 - PPSV23 if available, else PCV20) [facility] Start: 10-23-2020 PNEUMOCOCCAL: 65+ (2 - PPSV23 or PCV20) PNEUMOCOCCAL: 65+ (2 - PPSV23 or PCV20) [facility] Start: 10-16-2020 HEMOGLOBIN/HEMATOCRIT HEMOGLOBIN/HEMATOCRIT [facility] Start: 09-17-2020 COVID-19 VACCINE (2 - Booster for Alyssa series) COVID-19 VACCINE (2 - Booster for Alyssa series) [facility] Start: 12-19-2019 Pneumococcal vaccination [facility] Start: 12-19-2019 Pneumococcal Vaccine: 65+ (2 - PPSV23 or PCV20) Pneumococcal Vaccine: 65+ (2 - PPSV23 or PCV20) [facility] Start: 12-19-2019 PNEUMOCOCCAL: 65+ (2 - PPSV23 or PCV20) PNEUMOCOCCAL: 65+ (2 - PPSV23 or PCV20) [facility] Start: 11-08-2019 Screening for malignant neoplasm of colon [facility] Start: 10-26-2019 [facility] Start: 01-13-2019 Influenza vaccination Flu vaccine (#1) [place], [place] Start: 12-23-2018 Annual Wellness Visit (AWV) Annual Wellness Visit (AWV) [place] Start: 2009 DEXA (modify frequency per FRAX score) DEXA (modify frequency per FRAX score) [place], [place] Start: 2009 Pneumococcal 65+ years Vaccine (1 of 1 - PPSV23) Pneumococcal 65+ years Vaccine (1 of 1 - PPSV23) [place] Start: 2009 Pneumococcal 65+ years Vaccine (1 of 2 - PCV13) Pneumococcal 65+ years Vaccine (1 of 2 - PCV13) [place] Start: 10-26-2007 Annual Wellness Visit (AWV) Annual Wellness Visit (AWV) [place] Start: 2004 Hepatitis B Vaccine (1 of 3 - Risk 3-dose series) Hepatitis B Vaccine (1 of 3 - Risk 3-dose series) [facility] Start: 2004 RSV Vaccine (1 - 1-dose 60+ series) RSV Vaccine (1 - 1-dose 60+ series) [facility] Start: 10-26-1999 Screening for osteoporosis DEXA (modify frequency per FRAX score) [place], [place] Start: 1994 Breast cancer screen Breast cancer screen [place], [place] Start: 1994 Colon cancer screen colonoscopy Colon cancer screen colonoscopy [place] Start: 1994 Screening for malignant neoplasm of breast Breast cancer screen [place], [place] Start: 1994 Screening for malignant neoplasm of colon Colon cancer screen colonoscopy [place] Start: 1994 Shingles Vaccine (1 of 2) Shingles Vaccine (1 of 2) [place] Start: 1984 Lipid screen Lipid screen [place] Start: 1965 Screening for malignant neoplasm of cervix [facility] Start: 10-26-1963 DTaP/Tdap/Td vaccine (1 - Tdap) DTaP/Tdap/Td vaccine (1 - Tdap) [place] Start: 10-26-1963 Third diphtheria, tetanus and acellular pertussis (DTaP) vaccination [facility] Start: 10-26-1963 [facility] microalbumin profile [facility] Start: 1962 BP CONTROLLED (<130/80) BP CONTROLLED (<130/80) [facility] Start: 1962 HEPATITIS C SCREENING HEPATITIS C SCREENING [facility] Start: 1954 Lipid panel Lipid screen [place], [place] Start: 1944 Creatinine measurement Creatinine monitoring [place], [place] Start: 1944 Creatinine monitoring Creatinine monitoring [place], [place] Start: 1944 Hepatitis C screen Hepatitis C screen [place], [place] Start: 1944 Hepatitis C screening [facility] Start: 1944 Potassium monitoring Potassium monitoring [place] Start: 06-13-1945 Screening for osteoporosis [facility] Start: 1944 Tetanus vaccination [facility] End: 01-09-2019 Blood glucose - POCT Blood glucose - POCT Point of Care Testing Routine One Time for 1 Occurrences starting 01/09/2019 until 01/09/2019 [facility] [place] Comment on above: One Time for 1 Occurrences starting 12/14 until 01/09/2019 ECG COMPLETE [facility] Comment on above: Ordered: 05/31/2024 End: 05-31-2025 Echocardiography ECHO Cardiology Routine Atrial fibrillation, unspecified type (HCC) 1 Occurrences starting 05/31/2024 until 05/31/2025 [facility] Comment on above: 1 Occurrences starting 05/31/2024 until 05/31/2025 Patient referral [facility] Work Phone: End: 01-09-2019 Pulse Oximetry Spot Check Pulse Oximetry Spot Check Respiratory Care Routine One Time for 1 Occurrences starting 01/09/2019 until 01/09/2019 [facility] [place] Comment on above: One Time for 1 Occurrences starting 12/14 until 01/09/2019 End: 08-02-2024 PV FLUOROSCOPY OR U [facility] End: 08-02-2024 Standard ECG [facility] Immunizations Immunization Date Immunization Notes Care Provider Fa [facility] 07-23-2020 SARS-CoV-2 (COVID-19 ) Ad26 vaccine, recombinant SILVINO HA DO [facility] Comment on above: Result Comment: 2024: [id number] 02-27-2020 influenza, high dose seasonal, preservative-free Kameron Caruso MD Work Phone: [facility] 02-27-2020 influenza virus vaccine, unspecified formulation Kameron Caruso MD Work Phone: [facility] 10-24-2019 pneumococcal conjuga te vaccine, 13 valent Kameron Caruso MD Work Phone: [facility] 10-24-2019 zoster vaccine recombinant Kameron Caruso MD Work Phone: [facility] 07-25-2019 influenza virus vaccine, unspecified formulation SILVINO HA DO [facility] 07-25-2019 influenza, seasonal, injectable Kameron Caruso MD Work Phone: [facility] 07-25-2019 zoster vaccine recombinant Kameron Caruso MD Work Phone: [facility] 04-13-2015 influenza virus vaccine, unspecified formulation SILVINO HA DO [facility] 05-01-2014 influenza virus vaccine, unspecified formulation SILVINO HA DO [facility] 05-01-2014 influenza, high dose seasonal, preservative-free Kameron Caruso MD Work Phone: [facility] 02-22-2012 influenza virus vaccine, unspecified formulation Kameron Caruso MD Work Phone: [facility] Work Phone: 03-19-2007 influenza virus vaccine, unspecified formulation Kameron Caruso MD Work Phone: [facility] Work Phone: Payers Date Payer Category Payer Medicare [id number] 2024 Unknown [id number] 2024 Self-pay 2018 Medicare [employer] RE ADVANTAGE [facility] xxxxxxxxxxx 2018-Present [phone] [address] [place] [address] xxxxxxxxxxx [id number] 2018 Unknown [id number] 2013 [place] [id number] 2013-Present [phone] [address] [place] [address] O [id number] 2013 Medicare [id number] 2013 Medicare (Managed Care) 1.2. [id number] 2013 Medicare [id number] 1944 Unknown [id number] 1944 Unknown [id number] [id number] 1944 Unknown [id number] .594 1944 Unknown [id number] .594 1944 Unknown [id number] .627 Unknown [id number] 2.16.840.1.198933.3.579.2 .462 Unknown [id number] [id number] .462 Unknown [id number] .462 Unknown [id number] [id number] .462 Unknown [id number] .462 Unknown [id number] .462 Unknown [id number] [id number] .462 Unknown [id number] [id number] .462 Unknown [id number] .462 Unknown [id number] .462 Unknown [id number] .462 Social History Date Type Detail Facility Start: 01-09-2019 End: 08-02-2024 Tobacco smoking status NHIS Never smoker [facility] Start: 01-09-2019 End: 11-25-2022 Alcohol intake Never [facility] Work Phone: Start: 12-24-2018 History SDOH Alcohol Frequency 1 [place], [place] Start: 1945 Sex Assigned At Not on file [facility] [employer] [place] Start: 10-16-2019 Alcohol intake Lifetime non-d hortencia (finding) [place] Exposure to SARS-CoV -2 (event) [facility] [place] Start: 05-18-2021 End: 06-26-2024 Alcohol intake Current non-drinker of alcohol (finding) [facility] Start: 11-13-2021 End: 03-02-2022 Exposure to SARS-CoV-2 (event) Not sure [facility] Start: 02-02-2011 End: 03-02-2022 Tobacco use and exposure Smokeless tobacco non-user [facility] Start: 11-25-2022 End: 11-28-2023 History of Social function [facility] Work Phone: Adult Depression Screening Assessment 0 [facility] Work Phone: Start: 06-22-2005 End: 08-02-2024 Sex Female (finding) [facility] Start: 1945 Sex Assigned At Female [facility] Sexual Orientation [facility] Medical Equipment Procedure Code Equipment Code Equipment Original Text Equipment Identifier Dates [id number], [id number], [id number] Start: 11-30-2020 End: 04-08-2023 Comment on above: [...] Facility 09-09-2024 Functional Status Room check performed [facility] 09-09-2024 Functional Status [facility] 09-09-2024 Functional Status Skin Care Prev entative Intervention(s) heel(s)s elevated [facility] 09-08-2024 Functional Status [facility] 09-08-2024 Functional Status [facility] 09-06-2024 Functional Status 11pm-7am [facility] 09-06-2024 Functional Status Antiembolism S tocking On/Re-applied bilateral knee high [facility] 09-05-2024 Functional Status Oral Care Maximum wilfred tance [facility] 09-05-2024 Functional Status [facility] 09-05-2024 Functional Status Done [facility] 09-04-2024 Functional Status [facility] 09-04-2024 Functional Status [facility] 09-03-2024 Functional Status NPO Status Maintained A johangonzalo [place] 09-03-2024 Functional Status None [facility] 09-03-2024 Functional Status [facility] 08-29-2024 Functional Status [facility] 08-29-2024 Functional Status [facility] 08-27-2024 Functional Status Orthotics, Dev ice Worn Per Schedule Yes [facility] 08-27-2024 Functional Status [facility] 08-26-2024 Functional Status [facility] 08-23-2024 Functional Status [facility] 08-23-2024 Functional Status Breakfast Percent 25 Gillian anny [place] 08-20-2024 Functional Status [facility] 08-19-2024 Functional Status [facility] [place] 08-16-2024 Functional Status Single level h ome, basement laundry [facility] [place] 08-16-2024 Functional Status Outside Stairs Rail Rail on left going up [facility] 08-15-2024 Functional Status Sensory Defici ts Speech deficit [facility] 10-14-2014 Are you deaf, or do you have serious difficulty hearing No [facility] 10-14-2014 Are you blind, or do you have serious difficulty seeing, even when wearing glasses No [facility] 10-14-2014 Do you have serious difficulty walking or climbing stairs No [facility] 10-14-2014 Do you have difficul ty dressing or bathing No [facility] 10-14-2014 Because of a physica l, mental, or emotional condition, do you have difficulty doing errands alone such as visiting a physician's office or shopping No [facility] Mental Status Date Assessment Result Facility 09-09-2024 Mental Status Does not interact [facility] 09-08-2024 Mental Status [facility] 09-08-2024 Mental Status [facility] 08-02-2024 Cognitive function Awake;Alert;F ollows Commands [facility] Work Phone: 10-14-2014 Because of a physica l, mental, or emotional condition, do you have serious difficulty concentrating, remembering, or making decisions No [facility] Clinical Notes 11-03-2020 to 09-09-2024 Note [...] KAMERON CARUSO MD When:Within 3-7 days Where:[address] [place] [address]- Additional Information: Please schedule follow up PCP appointment for after discharge from SNF, Bring discharge instructions with you Follow Up with RIMMA POWERS MD When:10/08/2024 04:00 PM EDT Where:[facility] ([address], [place]) Additional Information: Neurosurgeon The Following Activity and [...] standard right Seat cushion, 99 month(s), Tyler [id number], 09/02/24 8:22:00 EDT Transfer of Care Wound [...] 08/04/2017 Document Revised: 05/04/2018 Document Reviewed: 08/04/2017 [employer]way Patient Education 2020 [employer]. Additional Information VACCINATE! IT SAVES LIVES! Members of the community who have not yet received the COVID-19 vaccine and would like to receive it can visit one of [facility] vaccine clinics. There are many vaccine clinic locations within the [facility]. For locations and available times, please visit [email or web address] It is important to note that some COVID mobile vaccine clinics are held outdoors and may be canceled in rainy or stormy conditions. To learn more about pediatric vaccinations (ages 5-11), we invite you to visit the [facility] webpage. https://www.[facility].org/pages /9896-Rhzrg-Tjjmgizrcuq-Frequently-A sked-Questions.html To learn more about the COVID-19 vaccine, we invite you to visit the CDC website for a list of frequently asked questions.https://www.cdc.gov/woodard virus/2019-ncov/vaccines/faq.html [employer] Patient Portal Access Instructions: Stay connected with your healthcare team and access your personal medical information anytime with the [employer] Patient Portal. Please follow the directions below to create your [facility] account: 1.Access the email account you provided upon registration to the hospital/physician office.2.Look for an invitation email from [facility].3.Open the email and access the invitation link: [facility].4.Fill in the required richards to create your account. To access your account, visit [email or web address]. Click the blue button labeled "Access Patient [...] you will allow to register on the [facility] Patient Portal for access to your information. You can also access the [facility] Patient Portal on the [facility] dahlia. Simply click on "Patient Portal" and then log into your account. If you would like to receive a full copy of your medical records, please contact the [facility] Medical Records Department by calling [phone], Monday through Monday between 8 a.m. and [...] Call your local pharmacy or go to http://bit.Rocket Raise/5C7Oy7g to find one close to you.3.Make use of household items: Use cat litter or old coffee grounds to dispose medications if other options are not available. Mix your drugs with these household products, seal them in an airtight container and throw it into the garbage. Call [facility]: [phone] to be sure your drugs can be [...] been reviewed and explained to me and I,ARMAND LINDSAY Veronica understand my current condition and have read and understand these discharge instructions. I have received a written copy of the plan/instructions. If I have questions, I am aware that I should contact my doctor. Patient/Letter Of Credit Clerk Signature: ___ Date/Time: Relationship to Patient: _ [...] KAMERON CARUSO MD When:Within 3-7 days Where:[address] [place] [address]- Additional Information: Please schedule follow up PCP appointment for after discharge from SNF, Bring discharge instructions with you Follow Up with RIMMA POWERS MD When:10/08/2024 04:00 PM EDT Where:[facility] ([address], [place]) Additional Information: Neurosurgeon The Following Activity and [...] standard right Seat cushion, 99 month(s), Tyler [id number], 09/02/24 8:22:00 EDT Transfer of Care Wound [...] 08/04/2017 Document Revised: 05/04/2018 Document Reviewed: 08/04/2017 [employer] Patient Education 2020 [employer]way [employer]. Additional Information VACCINATE! IT SAVES LIVES! Members of the community who have not yet received the COVID-19 vaccine and would like to receive it can visit one of [facility] vaccine clinics. There are many vaccine clinic locations within the [facility]. For locations and available times, please visit [email or web address] It is important to note that some COVID mobile vaccine clinics are held outdoors and may be canceled in rainy or stormy conditions. To learn more about pediatric vaccinations (ages 5-11), we invite you to visit the [facility] webpage. https://www.[facility].org/pages /8472-Dkbha-Uxaosvbvlad-Frequently-A sked-Questions.html To learn more about the COVID-19 vaccine, we invite you to visit the CDC website for a list of frequently asked questions.https://www.cdc.gov/woodard virus/2019-ncov/vaccines/faq.html [facility] Patient Portal Access Instructions: Stay connected with your healthcare team and access your personal medical information anytime with the [facility] Patient Portal. Please follow the directions below to create your [facility] account: 1.Access the email account you provided upon registration to the hospital/physician office.2.Look for an invitation email from [facility].3.Open the email and access the invitation link: Accept Invitation to [facility].4.Fill in the required richards to create your account. To access your account, visit [email or web address]. Click the blue button labeled "Access Patient [...] you will allow to register on the [facility] Patient Portal for access to your information. You can also access the [facility] Patient Portal on the [facility] dahlia. Simply click on "Patient Portal" and then log into your account. If you would like to receive a full copy of your medical records, please contact the [facility] Medical Records Department by calling [phone], Monday through Monday between 8 a.m. and [...] Call your local pharmacy or go to http://[employer].Rocket Raise/0C5Ax1u to find one close to you.3.Make use of household items: Use cat litter or old coffee grounds to dispose medications if other options are not available. Mix your drugs with these household products, seal them in an airtight container and throw it into the garbage. Call [facility]: [phone] to be sure your drugs can be [...] been reviewed and explained to me and I,ARMAND LINDSAY Veronica understand my current condition and have read and understand these discharge instructions. I have received a written copy of the plan/instructions. If I have questions, I am aware that I should contact my doctor. Patient/Letter Of Credit Clerk Signature: ___ Date/Time: Relationship to Patient: _ [...] in discharge valuation. She was [facility] from [facility] stay 08/02 - 08/15 who has a history of CAD, DM2, atrial fibrillation and hypertension who presented to the ER after noting left-sided weakness and slurred speech. Originally presented to [facility] where CT head was obtained showing [...] self-care assistance needs decision made to request care home facility. Approval is requested. Patient was to [...] Ordered -- 08/15/24 17:18:00 EDT, AMI HEATON APRN-ALUMINUM BOAT INSPECTOR, [facility] per policy Physical Exam Vitals [...] oral tablet)1 tab(s) PEG tube every day. [id number] Microgram PEG tube once a day. metoprolol [...] KAMERON CARUSO MD When:Within 3-7 days Where:[address] [place] [address]- Additional Information: Please schedule follow up PCP appointment for after discharge from SNF, Bring discharge instructions with you Follow Up with RIMMA POWERS MD When:10/08/2024 04:00 PM EDT Where:[facility] ([address], [place]) Additional Information: Neurosurgeon Follow Up Appointments No qualifying data available. Follow Up Labs/Studies Discharge Labs No Follow-up Labs Discharge Studies No Follow-up Studies Discharge Diet No qualifying data available. Discharge Activity No qualifying data available. Condition on Discharge Stable Discharge Disposition [facility] facility Information Provided To Patient and family [...] Abigail Rodas RN on 09/09/2024 10:[address] [facility] Nurse Progress note Nursing GG Entered On: 09/08/2024 17:39 EDT Performed On: 09/08/2024 17:39 EDT by Rob Alarcon RN Nursing GG's OT GG Grid Eating : Not Completed Oral Hygiene : Not Completed Toilet Hygiene : Substantial/Maximal Assistance Toilet Transfer : Substantial/Maximal Assistance Rob Alarcon RN - 09/08/2024 17:39 EDT Digitally Signed by Rob Alarcon RN on 09/08/2024 05:[address] [facility] 09-08-2024 Nurse Progress note Pt had 250ml residual, 12:30pm bolus was held! Digitally Signed by Rob Alarcon RN on 09/08/2024 12:[address] [facility] 09-06-2024 Physical medicine and rehab Progress note [...] and slurred speech. She originally presented to [facility] with CT of the head was obtained showed no acute hemorrhage or large territory stroke. CTA showed mid right M1 occlusion however patient was not a TNK candidate. She was then transferred to a [facility] for further management. CT of head [...] 80 mg 1 tab(s), PEG, Daily balsam Lela-castor oil topical 87 mg-788 mg/g oint 60g [...] Rate64(SEP 05 16:46)64(SEP 05 16:46)85(SEP 05 09:40) PXX982(SEP 05 16:36)138(SEP 05 16:36)H 158(SEP 05 09:52) [...] services. Repeat swallow test were performed continue Philippe Roberts protocol and order motor exercises and Glucerna [...] HA DO on 09/06/2024 12:34 PM [facility] 09-05-2024 Hospital Discharge instructions Patient Education 09/05/2024 [...] 08/04/2017 Document Revised: 05/04/2018 Document Reviewed: 08/04/2017 StepsAway Patient Education 2020 [employer]. Follow Up Care 08/15/2024 08:51:25 With:RIMMA POWERS MD Address: [facility] ([address], [place]) When:10/08/2024 16:00:00 Comments:Neurosurgeon With:JONNIE BANSAL MD Address: [facility] When: Unknown Comments:GI, No appointment needed until PEG is ready to be removed or concerns arise With:KAMERON CARUSO MD Address: [address] [place] [address]- When:3-7 days Comments:Please schedule follow up PCP appointment for after discharge from SNF, Bring discharge instructions with you [facility] 09-05-2024 Note Subjective Patient seen this morning [...] less than 3 seconds. Ongoing hemiparesis VITALS ZulmczCwkcSIGnxjvZLWiR0ENC1AabbPj(kg ) 09/05 09:5236.3--797692PF 09/05 09:40----85----RA 09/04 23:3236.6--200264FA 09/04 21:2436.5--462354GJ 09/04 16:01----72----RA 24 Hr Tmax: 36.6 at [...] tab(s), PEG, Daily, 08/15/24 17:09:00 EDT balsam Wink-castor oil topical (Venelex 788 mg-87 mg/g topical [...] SBP (mmHg) < 110, 1st dose location: [facility], 1, 08/15/24 17:09:00 EDT Active PRN Meds: [...] 2 minutes, REPEAT x1., 1st dose location: [facility], 0, 08/15/24 1... glucose (Dextrose 50% IV [...] None Problems (6) CVA (cerebral vascular accident) (314656899) Diabetes mellitus (817992615) Dysphagia (71063405) Hyperlipidemia (91391782) Hypertension (2421471938) Osteoarthritis (9483249929) ASSESSMENT/PLAN: Right basal ganglia hemorrhage, status post thrombectomy with revascularization follow-up appointment with neurosurgery on 10/08. Continue work with physical and Occupational Therapy with goal to return home at discharge. reports that referrals have been sent to care home facilities yesterday. Currently has 4 options in [...] of Catherine Newman APRN I, Julie Angel, APRN, personally performed the services described in this documentation, as scribed byDestiny RN in my presence and it is both accurate and complete. Digitally Signed by CATHERINE NEWMAN APRN-GARRETT on 09/05/2024 04:55 PM [facility] 09-05-2024 Physical medicine and rehab Progress note [...] area Neuro: Left upper extremity hemiparesis VITALS LpgbtiYabeXPTstpjDBHdA7FRW0AkekSn(kg ) 09/04 23:3236.6--314658NG 09/04 21:2436.5--876519QF 09/04 16:01----72----RA 09/04 12:10--------97RA 09/04 10:5435.9--691828LJ 24 Hr Tmax: 36.6 at 09/04 23:32 [...] tab(s), PEG, Daily, 08/15/24 17:09:00 EDT balsam Wink-castor oil topical (Venelex 788 mg-87 mg/g topical [...] None Problems (6) CVA (cerebral vascular accident) (490479121) Diabetes mellitus (447705056) Dysphagia (32695998) Hyperlipidemia (24972582) Hypertension (8256450108) Osteoarthritis (4828115245) ASSESSMENT/PLAN: Acute right basal ganglia hemorrhage with [...] per dietary team. Speech therapy/dietary following. Free Philippe protocol initiated with ice chips only. Daytime [...] NANDO HUTTON DO on 09/05/2024 10:12 AM [facility] 09-04-2024 Physical medicine and rehab Progress note [...] and slurred speech. She originally presented to [facility] with CT of the head was obtained showed no acute hemorrhage or large territory stroke. CTA showed mid right M1 occlusion however patient was not a TNK candidate. She was then transferred to a [facility] for further management. CT of head [...] Rate64(SEP 03 15:52)64(SEP 03 15:52)90(SEP 03 08:28) WQV906(SEP 04 05:38)112(SEP 04 05:38)127(SEP 03 08:00) DBP70(SEP [...] services described in this documentation, as scribed byDestiny RN in my presence and it is [...] area Neuro: Left upper extremity hemiparesis VITALS HqxirdLhohCFScxfjQFOwV4HYY2LpkrIx(kg ) 09/03 21:4136.4--110197CG 09/03 15:52----64---- 09/03 08:46 09/03 08:28----90---- 09/03 08:0036.4--899298CG 24 Hr Tmax: 36.4 at 09/03 21:41 [...] SBP (mmHg) < 110, 1st dose location: [facility], , 08/15/24 17:09:00 EDT oxybutynin (oxybutynin 5 mg [...] 2 minutes, REPEAT x1., 1[facility] dose [facility], 0, 08/15/24 1... glucose (Dextrose 50% IV [...] None Problems (6) CVA (cerebral vascular accident) (434444840) Diabetes mellitus (286444353) Dysphagia (28653051) Hyperlipidemia (97196013) Hypertension (3870215428) Osteoarthritis (2963563685) ASSESSMENT/PLAN: Acute right basal ganglia hemorrhage with [...] dictation software and may contain typographical errors. IAnjelica RN, am scribing for , and in [...] area Neuro: Left upper extremity hemiparesis VITALS SlnhvhEhvnCSZwsucHAUfC9KXV4PhfyGi(kg ) 09/03 00:2636.3--614060PA 09/02 21:5136.2--176684DP 09/02 16:56----88--98RA 09/02 10:40 RA 09/02 09:0936.0--596939MV 24 Hr Tmax: 37.0 at 09/02 05:55 [...] tab(s), PEG, Daily, 08/15/24 17:09:00 EDT balsam Wink-castor oil topical (Venelex 788 mg-87 mg/g topical [...] None Problems (6) CVA (cerebral vascular accident) (672648988) Diabetes mellitus (933584160) Dysphagia (05517968) Hyperlipidemia (74458317) Hypertension (7606173436) Osteoarthritis (1104731085) ASSESSMENT/PLAN: Acute right basal ganglia hemorrhage with [...] sugars closely. Follow-up with neurosurgery 10/08 Philippe Sureshwater protocol in place with ice chips only, [...] NANDO HUTTON DO on 09/05/2024 08:57 AM [facility] 09-02-2024 Note Exam Date Time Procedure Performing Provider Status 09/02/24 2:[address] Head or Brain w/o Contrast Brenda MCCLELLAN MD; Auth (Verified) [id number] ORIGINAL HISTORY: Lethargy COMPARISON: No TECHNIQUE: Routine [...] Date: 09/02/2024 3:10:44 PM Ordering Provider: SILVINO Scott [id number] Telephone encounter Note* Telephone Encounter - Fouzia Miller LPN - 08/30/2024 10:09 AM EDT Marya with [facility] notified. [facility]04-18-2025 Miscellaneous Notes* Telephone Encounter - Fouzia Miller LPN - 08/30/2024 10:09 AM EDT Marya with [facility] notified. * Telephone Encounter - Mj Glover APRN.CNP - 08/30/2024 9:19 AM EDT Please let know that Dr. Caruso's team will follow HH orders. Okay to proceed. Mj Glover APRN.CNP * Telephone Encounter - Jaiden Paulino RN - 08/30/2024 9:07 AM EDT Marya- [facility] reports patient was in [facility] with dx: stroke, and transferred to [facility]. [facility] home with [facility] SN PT OT [facility] & H[facility]ide. Asking if pcp agreeable to follow for [facility]HC. Please phone Marya with verbal: [phone] [facility] Telephone encounter Note * Telephone Encounter - Mj Glover APRN.CNP - 08/30/2024 9:19 AM EDT Please let HH know that Dr. Caruso's team will follow orders. Okay to proceed. Mj Glover APRN.CNP [facility]04-18-2025 Telephone encounter Note* Telephone Encounter - Jaiden Paulino RN - 08/30/2024 9:07 AM EDT [facility] reports patient was in [facility] with dx: stroke, and transferred to [facility]. Pt will be discharged from [facility] on 09/07/24 to home with [facility] SN PT OT [facility] & [facility]ide. Asking if pcp agreeable to follow for [facility]. Please phone Marya with verbal: [phone] [facility]04-14-2025 Note REFERRING PHYSICIAN: Silvino Ha DO. CONSULTING PSYCHOLOGIST: Matthew Gibson, PhD. REASON FOR REFERRAL: Neuropsychological exam. HISTORY OF PRESENT ILLNESS: Ms. Acuna is a 78-year-old right-handed white female admitted to [facility] from [facility] on 08/15/2024 after developing left-sided weakness and slurred speech. Initially seen at [facility] where brain CT was negative.CTA then [...] gastric ulcer with erosion. Eliquis was stopped and she was taking only 81 mg aspirin. PAST MEDICAL HISTORY: Includes coronary artery disease, type 2 diabetes, atrial fibrillation, hypertension, hyperlipidemia. The patient has several mild concussions suffered after a career in [employer]. No residual deficits reported. 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 MENTAL HEALTH HISTORY: No [...] of NPO. and Mrs. Acuna live in [place]. 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 She has a high school diploma from her hometown in [place], [place]. TEST RESULTS: I used the Cognistat, [...] be determined. MATTHEW GIBSON, PhD GM/NTS JOB#: [id number] DICTATION ID#: [id number] Digitally Signed by MATTHEW GIBSON PhD on 08/27/2024 08:21 AM [facility] [id number] Note* Exam Date Time Procedure Performing Provider Status 08/25/24 1:46 PM XR Hand and Wrist 6 Views Left Buck DUNNE DO; Auth (Verified) [id number] ORIGINAL EXAMINATION: 3 XRAY VIEWS OF THE [...] Date: 08/25/2024 2:27:26 PM Ordering Provider: JACKLYN Scott [id number] Note* Exam Date Time Procedure Performing Provider Status 08/25/24 1:45 PM XR Shoulder Minimum 2 Views Left JAMAR DUNNE DO; Auth (Verified) [id number] ORIGINAL EXAMINATION: TWO XRAY VIEWS OF THE [...] Date: 08/25/2024 2:26:45 PM Ordering Provider: JACKLYN [facility]04-13-2025 Note* Exam Date Time Procedure Performing Provider Status 08/25/24 1:43 PM XR Humerus Minimum 2 Views Left JAMAR DUNNE DO; Auth (Verified) [id number] ORIGINAL EXAMINATION: TWO XRAY VIEWS OF THE [...] Date: 08/25/2024 2:26:11 PM Ordering Provider: JACKLYN [facility]04-06-2025 Note* Exam Date Time Procedure Performing Provider Status 08/18/24 3:08 PM XR Chest 1 View Contributor_system, FUJ I; Auth (Verified) [id number] ORIGINAL EXAMINATION: ONE XRAY VIEW OF THE [...] Date: 08/18/2024 3:14:15 PM Ordering Provider: NANDO [facility]04-04-2025 Evaluation + Plan noteExtracted from: Title:Clinical Document Author:EZEQUIEL HUSTON RN-ALUMINUM BOAT INSPECTOR Date:08/16/24 Acute Inpatient Rehab Histor y and Physical Date of Service: 08/16/2024 Date of Admission: 08/15/2024 Attending Physician: Dr. Ha [facility] 1.1 left body involvement, right brain stroke Etiologic Diagnosis Hemorrhagic infarct involving right basal ganglia, mass effect with effacement of right lateral ventricle, tiny infarct in right cerebellum History of Present Illness 78-year-old female noted to home in inpatient rehab from [facility] stay 08/02 - 08/15 who is past medical history of coronary artery disease, diabetes mellitus type 2, atrial relation, hypertension, osteoarthritis, and hyperlipidemia who presented to the emergency room with noted left-sided weakness and slurred speech. She originally presented to [facility] with CT of the head was obtained showed no acute hemorrhage or large territory stroke. CTA showed mid right M1 occlusion however patient was not a TNK candidate. She was then transferred to a [facility] for further management. CT of head [...] feedings. Patient deemed medically stable transferred to [facility] for physical and occupational [...] with spouse, first- floor set up. 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 Safe place to go: Yes. Lives [...] Rate80(AUG 15 20:06)80(AUG 15 20:06)80(AUG 15 20:06) WAB536(AUG 16 00:03)128(AUG 16 00:03)140(AUG 15 17:47) DBP76(AUG 16 00:03)76(AUG 16 00:03)80(AUG 15 17:47) 36hr Labs 08/15 1805 Blood Glucose, Ukiejszyr666R Blood Glucose, Ucemokmij901N Blood Glucose TSee Flowsheet Assessment/Plan Debility and [...] in the presence of Miguel Huston CNP. Miguel Roe CNP, personally performed the services described in this documentation, as scribed by, Anjelica Grover RN in my presence and it is both accurate and complete. [facility] 04-04-2025 Physical medicine and rehab Consult note INPATIENT REHAB MEDICAL CONSULT DATE OF ADMISSION: 08/16/2024 CC: Acute right basal hemorrhage HISTORY OF PRESENT ILLNESS: This is a 78-year-old female admitted to [facility] inpatient rehab unit from [facility] stay 08/02 - 08/15 who has a history of CAD, DM2, atrial fibrillation and hypertension who presented to the ER after notingleft-sided weakness and slurred speech. Originally presented to [facility] where CT head was obtained showing [...] was deemed medically stable and transferred to [facility] inpatient rehab unit for physical and occasional [...] Rate80(AUG 15 20:06)80(AUG 15 20:06)80(AUG 15 20:06) NJH302(AUG 16 00:03)128(AUG 16 00:03)140(AUG 15 17:47) DBP76(AUG [...] reviewed. 36hr Labs 08/15 1805 Blood Glucose, [id number] Blood Glucose, [id number] Blood Glucose TSee Flowsheet ASSESSMENT AND PLAN: [...] stay at [facility] Inpatient Re[facility] Unit with the goal of [...] 04:53 PM [id number] Physical medicine and rehab History and physical [...] noted to home in inpatient rehab from [facility] stay 08/02 -08/15 who is past medical history of coronary artery disease, diabetes mellitus type 2, atrial relation, hypertension, osteoarthritis, and hyperlipidemia who presented to the emergency room with noted left-sided weakness and slurred speech. She originally presented to [facility] with CT of the head was obtained showed no acute hemorrhage or large territory stroke. CTA showed mid right M1 occlusion however patient was not a TNK candidate. [facility] [...] feedings. Patient deemed medically stable transferred to [facility] inpatient rehab unit for physical and occupational [...] with spouse, first- floor set up. 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 Safe place to go: Yes. Lives [...] Rate80(AUG 15 20:06)80(AUG 15 20:06)80(AUG 15 20:06) VDT178(AUG 16 00:03)128(AUG 16 00:03)140(AUG 15 17:47) DBP76(AUG 16 00:03)76(AUG 16 00:03)80(AUG 15 17:47) 36hr Labs 08/15 1805 Blood Glucose, [id number] Blood Glucose, [id number] Blood Glucose TSee Flowsheet Assessment/Plan Debility and [...] by EZEQUIEL HUSTON on 08/22/2024 05:17 AM [id number] Miscellaneous Notes* Nursing Notes - Robson Steel [...] pacing over x3-5 sessions Outcome: Ongoing Problem: [employer] - Cognition Goal: Orientation Log - Patient [...] pacing over x3-5 sessions Outcome: Ongoing Problem: [employer] - Cognition Goal: Orientation Log - Patient [...] follow. * Plan of Care - Katie Ramos PT - 08/12/2024 2:23 PM EDT Problem: PT [...] for buried bumper syndrome. - If used intermediate, initial PEG should be changed in 6-12 months depending on tube condition. - No plans for repeat outpatient EGD at this time based on clinical status Jonnie Mccabe MD Division of Gastroenterology, Hepatology, and Nutrition Clinical Fellow PGY-4 Pager: [phone] * Plan of Care - Manisha Cheema [...] Symptoms Outcome: Progressing * Nursing Notes - Cathreine Barros RN - 08/08/2024 4:01 PM EDT Patient's states patient had a reaction to anesthesia several years ago. "The aniyah made it look like she was having a heart attack". He is not sure how long ago or what the specific medication was. Daughter, Keagan [phone] would be able to answer questions. Catherine [...] Ongoing * Plan of Care - Florinda Velasquez, PT - 08/08/2024 12:54 PM EDT Problem: [...] Progressing * Plan of Care - Teagan Cronin, OT - 08/08/2024 10:15 AM EDT Problem: [...] 08/07/2024 5:00 PM EDT On admission to [facility], from another [facility] inpatient unit a dual RN initial assessment of skin condition was performed by Shaila Stringer RN and Raysa Martníez RN. Skin Assessment: Skin within defined limits:Yes [...] oropharyngeal swallow function to most appropriately guide [employer] plan of care Outcome: Met Goal: Bolus [...] readiness for diet advancement Outcome: Met Problem: [employer] - Cognition Goal: Orientation Log - Patient [...] better assess deficits and most appropriately guide [employer] plan of care Outcome: Met Goal: Attention: [...] of Care: 1. Diet: NPO. Advancement per team/[employer] recommendation 2. Ordered TF: Glucerna 1.5 @ goal rate 55mL/h x 22 hours (holding for synthroid) -Free water per team, suggest minimum of 30ml q 4hr for tube patency 3. Monitor TF/PO intake, bowel function, skin integrity, weight change, lab values. 4. RD to follow up * Plan of Care - Florinda Velasquez, SHIRLEY - 08/04/2024 1:36 PM EDT Problem: PT [...] readiness for diet advancement Outcome: Ongoing Problem: [employer] - Cognition Goal: Orientation Log - Patient [...] better assess deficits and most appropriately guide [employer] plan of care Outcome: Ongoing * Nursing Notes - Aniyah Torre RN - 08/02/2024 6:13 PM EDT On admission to [facility], from [place] a dual RN initial assessment [...] change from previous assessment. Pt transferred to [facility] via cart accompanied by Denae ENRIQUEZ. T on room air, tele and pulse [...] under emergency consent. SURGEON(S): Prema Ramos MD SINGLE FOLD MACHINE OPERATOR(S): None ANESTHESIA: Monitored anesthesia care DESCRIPTION OF [...] - 08/02/2024 3:26 PM EDT Lindsay Acuna ([id number]) PRE OPERATIVE DIAGNOSIS Cerebral infarction due to [...] - Primary ANESTHESIOLOGIST Anesthesiologist: Tameka Ruth MD DIABETES TERRITORY MANAGER: Bebo Barboza APRN-DIABETES TERRITORY MANAGER SURGICAL STAFF Pasteurizer Helper: Rachell Ruffin RN Supervising Architect: Paulina Muñiz; Radha Morales COMPLICATIONS None ESTIMATED BLOOD LOSS Minimal SPECIMENS No specimen sent * No specimens in log * Prema Ramos MD August 02, 2024 3:26 PM [facility] History of Present illness Narrative* OWEN Benavides - 08/15/2024 9:01 AM EDT Care Management Discharge Note Selected Continued Care - Admitted Since 08/02/2024 Destination Coordination complete. Service Provider Services Address Phone Fax Patient Preferred [place] [phone] -- -- Internal Comment last updated by OWEN Benavides 08/15/2024 0901 Report fax: [phone] Transport Request Mode of Transfer: [facility] Name of Discharge Transport Company: [facility] Discharge Transport ETA: 08/15/2024 @ 1030 Patient medically stable for discharge per physician/medical team. Pt has neurology appointment scheduled. Pt/ to schedule appointment with PCP. Patient/Letter Of Credit Clerk remain in agreement withthe discharge plan. BULMARO Allen Lamp Decorator * OWEN Benavides - 08/14/2024 3:17 PM EDT Placement Plan Expected Discharge Date: 08/15/2024 Referred Level of Care: IPR Current Referrals and Status 1. Tyler Garcia-accepted IPR obtained precertification for Pt starting tomorrow. Pt is set-up to leave via ambulance tomorrow at 1030. CM updated Pt's by phone. IPR will provide CM with the best phone and fax numbersfor RN report tomorrow morning. BULMARO Allen Lamp Decorator * Marybeth Ayoub - 08/14/2024 2:51 PM EDT Care Management Progress Note Transportation for discharge arranged Mode of Transfer: (P) BLS Name of Discharge Transport Company: (P) [facility] Discharge Transport ETA: (P) 08/15/2024 @ 1030 Pick-up from [facility] 1032/A Destination Tyler ALVARADO [address] [place] [address] OWEN Morrell Lamp Decorator Director Of Publications [phone] * Jazzy Aguiar - 08/14/2024 9:47 AM EDT Acute Occupational [...] position Mobility Assessment/Intervention: Supine to Sit Mobility [place] Level: Supine->Sit: moderate assist (50% patient effort) Physical Assist: Supine->Sit: 2 person assist Bed Features/Set-up: Supine->Sit: Head of bed elevated, Use of bed rail Skilled Rationale: Verbal cues, Tactile cues, Hand placement, Positioning, Technique of activity Skilled Intervention/Details: Supine->Sit: Cues for technique of transfer and pt needing increased assistance for managing legs and trunk to EOB positioning Transfer Assessment/Intervention: Sit to Stand Transfer [place] Level: Sit->Stand: moderate assist (50% patient effort) [...] hand held support Stand to Sit Transfer [place] Level: Stand->Sit: moderate assist (50% patient effort) Physical Assist: Stand->Sit: 2 person assist Assistive Device: Stand->Sit: gait belt, hand held assist Skilled Rationale: Verbal cues, Tactile cues, Hand placement, Positioning, Controlled descent for sitting Skilled Intervention/Details: Stand->Sit: Cues for positioning with BSC and recliner, pt provided bilat hand held support and needing increased support for managing a controlled descent Bed-Chair Transfer [place] Level: Bed<->Chair: maximum assist (25% patient effort) [...] managing L side during transfer Toilet Transfer [place] Level: Toilet: moderate assist (50% patient effort) [...] upright gaze when standing Outcome Score(s): CURRENT -[facility] Daily Activity Inpatient Short Form Putting on/Taking Off Lower Body Clothin - Total Assistance Bathin - A Lot of Assistance Toiletin - Total Assistance Putting on/Taking Off Upper Body Clothin - A Little Assistance Groomin - A Little Assistance Eatin - Total Assistance CURRENT -[facility] Activity Raw Score: 11 CURRENT AM-[facility] Activity Functional Limitation/Modifier: 70.42% Currently Impaired [...] - 08/14/2024 11:33 AM EDT I, Teagan Cronin, OT, provided [...] person, Oriented to place, Oriented to situation ("[place]" "hospital" "May" "2024" "stroke") Following Commands: Follows [...] blocking Mobility Assessment/Intervention: Supine to Sit Mobility [place] Level: Supine->Sit: moderate assist (50% patient effort) [...] sitting) Transfer Assessment/Intervention: Sit to Stand Transfer [place] Level: Sit->Stand: moderate assist (50% patient effort) Physical Assist: Sit->Stand: 2 person assist Assistive Device: Sit->Stand: gait belt Skilled Rationale: Arm in arm, Patellar block, Ischial assist, Facilitate anterior shift, Full extension to upright positioning/posture, Finding/maintaining midline positioning Skilled Intervention/Details: Sit->Stand: repeat cues to avoid significant L lean with improvement last standing. x1 from EOB, x2 from BSC Stand to Sit Transfer [place] Level: Stand->Sit: moderate assist (50% patient effort) Physical Assist: Stand->Sit: 2 person assist Assistive Device: Stand->Sit: gait belt Skilled Rationale: Arm in arm, Controlled descent for sitting Skilled Intervention/Details: Stand->Sit: last trial assisted R hand to recliner arm rest and ongoing cues for wt shift to R Bed-Chair Transfer [place] Level: Bed<->Chair: maximum assist (25% patient effort) [...] Mobility Assessment/Intervention: Stairs Assessment/Intervention: Outcome Score(s): CURRENT [facility] Basic Mobility Inpatient Short Form Turning over in bed: 2 - A Lot of Assistance Moving from lying on back to sittin - Total Assistance Moving to and from bed to chair: 1 - Total Assistance Sitting/standing from chair: 2 - A Lot of Assistance Walk in hospital room: 1 - Total Assistance Climbing 3-5 steps with a railin - Total Assistance CURRENT [facility] Mobility Raw Score: 8 CURRENT [facility] Mobility Functional Limitation: 86.62% Impaired in Basic Mobility Interventions: Intervention 1 Intervention Name: [facility] supine and sitting Details: education L attention [...] and Treatment Time Therapeutic Activity Time Entry: 23 Neuromuscular Re-Education Time Entry: 10 Treating Therapist: Shaina Rosales PT, DPT [id number] 08/14/2024 Additional Details: PT Co-Eval/Treatment Information Co-evaluation/co-treatment [...] Physical Therapy Discharge Summary. * Tanja Cason, [employer] - 08/14/2024 8:37 AM EDT Acute Care [...] on the below outcome measures/assessment score(s) and [employer] clinicaljudgment, discharge destination recommendation is: IPR Barriers to discharge home: 1:1 assist needed for IADL's including medication management and finances Supporting factors for discharge setting: Impaired swallow function limiting nutritional status andsafety with oral intake, Impaired cognitive skills limiting safety/insight Acute [employer] Outcomes Tracking Communicate basic wants and needs?: yes Demo insight/appreciation of deficits?: no Complete basic problem solving?: no Current therapy frequency recommendation in acute: Speech/Lang/Cog Therapy Frequency: 3 times a week Swallow Therapy Frequency: 5 times a week Clinical Impression: Lindsay continues with mod-severe cognitive-communicative impairments, and suspect ongoing mod-severe oropharyngeal dysphagia s/p right CVA. She continues to engage in education and exercises, though severity of her attention, memory, insight impairments limit independent carry over. Strong family support. Ongoing [employer] s indicated. Subjective information: Alert, present. SO referenced his notes from yesterday and reportedcarry over of exercises yesterday. Patient with zero recall Pain: Nonverbal indicator not present Precautions: Patient Safety Communication Prior to Visit: Nursing Lines/Tubes/Drains (Rehab Status): Telemetry, Tube feed Existing Precautions/Restrictions: fall Respiratory Status: O2 Sat (%): 96 % (08/14 0711) O2 Device: room air (08/14 0947) Acute [employer] Goals Plan of Care by Tajna Cason, [employer] at 08/14/2024 2:42 PM Version 1 of [...] RoM to achieve technique. Outcome: Ongoing Problem: [employer] - Cognition Goal: Orientation Log - Patient [...] next session: 08/14 - ongoing exercises, education [employer] Outcomes: FOIS 2 Speech Language Pathologist: RIKI [...] of session: none altered Needs in reach. [employer] Evaluation and Treatment Time Speech Therapy - Individual 19164: 14 Swallowing Dysfunction Treatment 12259: 14 Upon discontinuation of Acute Care Speech [...] on the below outcome measures/assessment score(s) and [employer] clinicaljudgment, discharge destination recommendation is: Inpatient Rehab Facility Barriers to discharge home: 1:1 assist needed for IADL's including medication management and finances Supporting factors for discharge setting: Impaired swallow function limiting nutritional status andsafety with oral intake, Impaired cognitive skills limiting safety/insight Acute [employer] Outcomes Tracking Communicate basic wants and needs?: [...] O2 Device: room air (08/13 710) Acute [employer] Goals Plan of Care by Tanja Cason [employer] at 08/13/2024 11:10 AM Version 1 of [...] 10 reps this session. Outcome: Ongoing Problem: [employer] - Cognition Goal: Orientation Log - Patient [...] considerations: Cognition Patient Instruction/Education comments: Role of [employer], presence and normalized frustration with cognitive-communicative impairments. Focused on memory this date and that patient does not recall education so perseverative questions are normal. Reviewed intermittent silent aspiration from MBS last weekand ongoing signs of dysphagia this session, will plan to coordinate timing for repeat instrumentalwith care team Plan for next session: 08/13 -fair [employer] Outcomes: FOIS 2 Speech Language Pathologist: RIKI Blancas Time In: 824 Time Out: 0850 Total Visit Time: 25 minutes Total Treatment Time (skilled, billable minutes): 25 minutes Non-billable assistance during session: na Assisted by during session: na PPE used during patient interaction: gloves Patient location/status at end of session: bed with head of bed elevated Patient alarms at end of session: none altered Needs in reach. [employer] Evaluation and Treatment Time Speech Therapy - Individual 12634: 12 Swallowing Dysfunction Treatment 62385: 13 Upon discontinuation of Acute Care Speech Therapy Services or patient discharge from the hospital this note represents the current Speech Therapy Discharge Summary * OWEN Benavides - 08/12/2024 3:21 PM EDT Placement Plan Expected Discharge Date: 08/14/2024 Referred Level of Care: IPR Barriers: Medical Readiness & Precertification Current Referrals and Status 1. Tyler Garcia-accepted IPR started precertification today. BULMARO Allen Lamp Decorator * Jazzy Aguiar - 08/12/2024 10:46 AM [...] sinkside Mobility Assessment/Intervention: Supine to Sit Mobility [place] Level: Supine->Sit: moderate assist (50% patient effort) [...] positioning Transfer Assessment/Intervention: Sit to Stand Transfer [place] Level: Sit->Stand: maximum assist (25% patient effort) [...] maintaining upright posture Stand to Sit Transfer [place] Level: Stand->Sit: maximum assist (25% patient effort) Physical Assist: Stand->Sit: 2 person assist Assistive Device: Stand->Sit: gait belt, hand held assist Skilled Rationale: Verbal cues, Tactile cues, Hand placement, Positioning, Controlled descent for sitting Skilled Intervention/Details: Stand->Sit: Cues for positioning with recliner and using BUEs to help with appropriate positoining of hips in chair Bed-Chair Transfer [place] Level: Bed<->Chair: maximum assist (25% patient effort) Physical Assist: Bed<->Chair: 2 person assist Assistive Device: Bed<->Chair: gait belt Skilled Rationale: Verbal cues, Tactile cues, Hand placement, Positioning, Technique of activity Skilled Intervention/Details: Bed<->Chair: x1 from EOB to recliner on R. Pt needing increasedsupport for managing L side and sequencing steps for appropriate positioning with recliner Outcome Score(s): CURRENT [facility] Daily Activity Inpatient Short Form Putting on/Taking Off Lower Body Clothin - Total Assistance Bathin - A Lot of Assistance Toiletin - Total Assistance Putting on/Taking Off Upper Body Clothin - A Lot of Assistance Groomin - A Lot of Assistance Eatin - Total Assistance CURRENT [facility] Activity Raw Score: 9 CURRENT [facility] Activity Functional Limitation/Modifier: 79.59% Currently Impaired in [...] self-care, cognition, coordination Assisted by during session: OT Teagan Cronin PPE used during patient interaction: gloves [...] - 08/12/2024 11:31 AM EDT I, Teagan Cronin OT, provided direct guidance in the room during this patient care session. I attest that all documentation reflects accurate skilled clinical decisions and judgements. * Tianna Murray RD - 08/12/2024 10:37 AM EDT NUTRITION FOLLOW-UP [...] speech and L hemiplegia. She presented to [facility] and was seen on Telestroke, NIHSS 12. CTH showed no acute hemorrhage or large territory stroke. CTA with mid R M1 occlusion. She was not given IV TNK due to unclear last dose of Eliquis ( unsure of last dose). She was transferred to [facility] for further management. Underwent mechanical thrombectomy with TICI 2b revascularization. Nutrition History/Assessment: Pt last assessed by RD 3/24. RD recommended TF of Glucerna 1.5 at 55 mL/hr x 22 hours/day. Per MAR,TF has been held off and on in the past week for several different meds, procedures, etc. Per I/Os,in the past week pt received an average TF volume of 980 mL/day, meeting 81% of goal TF volume. Pt last assessed by [employer] 08/08 with recommendations for NPO. S/p PEG [...] chips. Will also increase free water flushes. [employer] to see pt tomorrow. Nutrition Focused Physical Exam: Nutrition Focused Physical Exam Completed?: completed Subcutaneous Fat Loss: Orbital Region (Orbital Fat Pads): WDL Cheek Region (Buccal Fat Pads): WDL Upper Arm Region (Triceps): WDL Thoracic and Lumbar Region (Ribs, Lower Back, Midaxillary Line): WDL Muscle Wasting: Hoahaoism Region (Temporalis Muscle): deferred (lac over eyebrow) [...] kg (172 lb) 06/26/24 78.9 kg (174 lb)-[facility] 05/31/24 79 kg (174 lb 2.6 oz)-[facility] 11/28/23 80.6 kg (177 lb 9.6 oz)-[facility] 09/29/23 84 kg (185 lb)-[facility] meds reviewed: Scheduled: Reviewed, includes insulin, [...] - 5.6 % Final WBC/Hgb/Hct/Plts: 14.32/14.3/45.1/241 (08/12 034) Lab Results Component Value Date GLUCOSE 160 [...] Needs: Weight Used: 61 kg (IBW) EEN: 7513-7904 kcal/day (25-30 kcal/kg) EPN: 73-92 g/day (1.2-1.5 g/kg) EFN: 1830 mL/day (30 mL/kg) or per primary team Malnutrition Statement: Does the patient meet criteria for malnutrition: No *Based on [employer] Academy and ASPEN Indicators to Diagnose Malnutrition (AAIM) criteria (2012) Tianna Murray RD, LD, [facility] Pager #[phone] * Katie Ramos, PT - 08/12/2024 10:22 [...] standing. Mobility Assessment/Intervention: Supine to Sit Mobility [place] Level: Supine->Sit: moderate assist (50% patient effort) Physical Assist: Supine->Sit: 2 person assist Bed Features/Set-up: Supine->Sit: Head of bed elevated Skilled Rationale: Verbal cues, Tactile cues, Hand placement, Technique of activity Skilled Intervention/Details: Supine->Sit: verbal/tactile cues for instruction on transfer technique and mod A x 2 for LE and trunk management. Transfer Assessment/Intervention: Sit to Stand Transfer [place] Level: Sit->Stand: maximum assist (25% patient effort) Physical Assist: Sit->Stand: 2 person assist Assistive Device: Sit->Stand: gait belt Skilled Rationale: Verbal cues, Tactile cues, Hand placement, Technique of activity Skilled Intervention/Details: Sit->Stand: x2 trials with verbal/tactile cues for instruction on transfer technique, hand placement, and blocking left knee. Bed-Chair Transfer [place] Level: Bed<->Chair: maximum assist (25% patient effort) Physical Assist: Bed<->Chair: 2 person assist Assistive Device: Bed<->Chair: gait belt Skilled Rationale: Verbal cues, Tactile cues, Hand placement, Technique of activity Skilled Intervention/Details: Bed<->Chair: x1 trial from EOB to chair to the right. Verbal/tactile cues for instruction on transfer technqiue, blocking left knee. Outcome Score(s): CURRENT [facility] Basic Mobility Inpatient Short Form Turning over in bed: 2 - A Lot of Assistance Moving from lying on back to sittin - Total Assistance Moving to and from bed to chair: 1 - Total Assistance Sitting/standing from chair: 1 - Total Assistance Walk in hospital room: 1 - Total Assistance Climbing 3-5 steps with a railin - Total Assistance CURRENT [facility] Mobility Raw Score: 7 CURRENT [facility] Mobility Functional Limitation: 92.36% Impaired in Basic Mobility Interventions: Intervention 1 Intervention Name: LORENA LLE therapeutic exercises to promote LE strengthening [...] Physical Therapy Discharge Summary. * Radha Gr, PROSTHETIC DENTIST-ALUMINUM BOAT INSPECTOR - 08/11/2024 7:15 AM EDT NEUROVASCULAR STROKE SERVICE Daily Progress Note IDENTIFYING INFORMATION Lindsay Acuna MR# [id number] 08/11/2024 HISTORY OF PRESENT ILLNESS Lindsay Acuna is a 78 y.o. female with PMH significant for CAD, HTN, HLD, T2DM, Afib (on Eliquis, although patient reports she has not been taking it) who presents with L hemiplegia, slurred speech. LKW 0915 on 08/02, later found down with slurred speech and L hemiplegia. She presented to [facility] and was seen on Telestroke, NIHSS 12. [...] 2b revascularization. INTERVAL HISTORY 08/05: Transfer to [place] tomorrow 08/06: Failed MBS. Increased lopressor. Spouse [...] (home dose), give mag , NPO at [place] for FABIAN PHYSICAL EXAM Gen: awake, alert [...] today 08/11 -Rate controlled on metoprolol Dysphagia: -[employer] following -NPO, DHT + TF -Failed MBS [...] a tooth abscess, will obtain FABIAN Monday - to rule out veg (Cxs neg here) CKD Stage 3A, POA: Baseline Cr 1.3 -Avoid nephrotoxins, monitor Hypothyroidism, POA: -Continue home levothyroxine 75 mcg daily Disposition: Lindsay Acuna will likely be discharged to [facility] when medically ready Radha Gr, PROSTHETIC DENTIST-ALUMINUM BOAT INSPECTOR 08/11/2024 10:17 AM VITAL SIGNS Temp: [97.2 [...] for specific therapeutic recommendations, please see the crystallography teacher report of the speech pathologist. Examination performed [...] and neurological examinations as recorded by the CRIMINAL JUSTICE INSTRUCTOR repeated and confirmed. I have personally reviewed [...] of tooth. Blood cx unremarkable. * Radha Kayla Simón, PROSTHETIC DENTIST-ALUMINUM BOAT INSPECTOR - 08/10/2024 7:14 AM EDT NEUROVASCULAR STROKE SERVICE Daily Progress Note IDENTIFYING INFORMATION Lindsay Acuna MR# [id number] 08/10/2024 HISTORY OF PRESENT ILLNESS Lindsay Acuna is a 78 y.o. female with PMH significant for CAD, HTN, HLD, T2DM, Afib (on Eliquis, although patient reports she has not been taking it) who presents with L hemiplegia, slurred speech. LKW 0915 on 08/02, later found down with slurred speech and L hemiplegia. She presented to [facility] and was seen on Telestroke, NIHSS 12. [...] 2b revascularization. INTERVAL HISTORY 08/05: [place] [facility] tomorrow 08/06: Failed MBS. Increased lopressor. Spouse [...] as above -Rate controlled on metoprolol Dysphagia: -[employer] following -NPO, DHT + TF -Failed MBS [...] Lindsay Acuna will likely be discharged to [facility] when medically ready Radha Gr, PROSTHETIC DENTIST-ALUMINUM BOAT INSPECTOR 08/10/2024 7:14 AM VITAL SIGNS Temp: [97.4 [...] for specific therapeutic recommendations, please see the crystallography teacher report of the speech pathologist. Examination performed [...] skin and external bumper. - If used intermediate, PEG should be changed every 3-6 months [...] Hepatology, and Nutrition Clinical Fellow PGY-4 Pager: [phone] For follow up questions regarding this patient 7am to 5pm, contact the IBD consults fellow or DAHLIA on [employer]. [facility]--> Internal Medicine--> Gastroenterology, Hepatology, & Nutrition--> IBD Consult Service Fel Day OR IBD Consult Service DAHLIA Day For urgent/stat calls or new consults 5pm to 7am or all day on the weekend, please page the on-callGI fellow on [employer]. [facility]--> Internal Medicine--> Gastroenterology, Hepatology, & Nutrition--> 1st [...] Management assistance for the weekend, please contact CM for assistance as needed (8:00am-4:30pm) BASH: [phone] Maria: [phone] Johan: [phone] Ross: [phone] For Social Work assistance for the weekend, please contact SW for assistance as needed (8:00am - 4:30pm): BASH: [phone] Maria: [phone] Johan: [phone] Ross: [phone] * Radha Gr APRN-GARRETT - 08/09/2024 8:07 AM EDT NEUROVASCULAR STROKE SERVICE Daily Progress Note IDENTIFYING INFORMATION Lindsay Acuna MR# [id number] 08/09/2024 HISTORY OF PRESENT ILLNESS Lindsay Acuna is a 78 y.o. female with PMH significant for CAD, HTN, HLD, T2DM, Afib (on Eliquis, although patient reports she has not been taking it) who presents with L hemiplegia, slurred speech. LKW 0915 on 08/02, later found down with slurred speech and L hemiplegia. She presented to [facility] and was seen on Telestroke, NIHSS 12. [...] 2b revascularization. INTERVAL HISTORY 08/05: [place] [facility] tomorrow 08/06: Failed MBS. Increased lopressor. Spouse [...] as above -Rate controlled on metoprolol Dysphagia: -[employer] following -NPO, DHT + TF -Failed MBS [...] Lindsay Acuna will likely be discharged to [facility] when medically ready Radha Gr, PROSTHETIC DENTIST-ALUMINUM BOAT INSPECTOR 08/09/2024 8:07 AM VITAL SIGNS Temp: [97.3 [...] for specific therapeutic recommendations, please see the crystallography teacher report of the speech pathologist. Examination performed [...] MD at 08/12/2024 10:46 AM EDT * Shelton Steel, RIKI - 08/08/2024 1:10 PM EDT Acute Care [...] on the below outcome measures/assessment score(s) and [employer] clinicaljudgment, discharge destination recommendation is: Inpatient Rehab Facility Acute [employer] Outcomes Tracking Communicate basic wants and needs?: [...] pressions and introduction to effortful swallow exercise. [employer] provided education regarding recommendation of NPO given [...] constraints (transport arrived for pt's CT scan). [employer] will follow as able. Subjective information: Patient upright in chair, at bedside. Agreeable to [employer] session. Pain: General Pain Documentation (Adult, OB, [...] room air Flow (L/min): [3] 3 Acute [employer] Goals Plan of Care by RIKI Penaloza [...] phsyiology, risks of aspiration pneumonia). Educated regarding [employer] role in swallow rehab and future POC Plan for next session: 08/06: cog tx and dysphagia exercises [employer] Outcomes: FOIS: 1 Speech Language Pathologist: RIKI Penaloza Time In: 1310 Time Out: 1330 Total Visit Time: 20 minutes Total Treatment Time (skilled, billable minutes): 20 minutes Non-billable assistance during session: NA Assisted by during session: NA PPE used during patient interaction: gloves Patient location/status at end of session: chair Patient alarms at end of session: none altered Needs in reach. [employer] Evaluation and Treatment Time Swallowing Dysfunction Treatment 20896: 20 Upon discontinuation of Acute Care Speech Therapy Services or patient discharge from the hospital this note represents the current Speech Therapy Discharge Summary * Florinda Velasquez, PT - 08/08/2024 12:54 PM EDT Acute [...] feedback Mobility Assessment/Intervention: Supine to Sit Mobility [place] Level: Supine->Sit: moderate assist (50% patient effort) Physical Assist: Supine->Sit: 2 person assist Bed Features/Set-up: Supine->Sit: Use of bed rail, Head of bed elevated Skilled Rationale: Sequencing, Verbal cues, Hand placement, Positioning Skilled Intervention/Details: Supine->Sit: increased time/cues Transfer Assessment/Intervention: Sit to Stand Transfer [place] Level: Sit->Stand: moderate assist (50% patient effort) Physical Assist: Sit->Stand: 2 person assist Assistive Device: Sit->Stand: gait belt, hand held assist Skilled Rationale: Positioning, Sequencing, Hand placement, Verbal cues Skilled Intervention/Details: Sit->Stand: Pt educated in sit to stand transfers x 2 attempts, one from EOB and one from chair Bed-Chair Transfer [place] Level: Bed<->Chair: maximum assist (25% patient effort) [...] Mobility Assessment/Intervention: Stairs Assessment/Intervention: Outcome Score(s): CURRENT [facility] Basic Mobility Inpatient Short Form Turning over in bed: 2 - A Lot of Assistance Moving from lying on back to sittin - A Lot of Assistance Moving to and from bed to chair: 1 - Total Assistance Sitting/standing from chair: 1 - Total Assistance Walk in hospital room: 1 - Total Assistance Climbing 3-5 steps with a railin - Total Assistance CURRENT [facility] Mobility Raw Score: 8 CURRENT [facility] Mobility Functional Limitation: 86.62% Impaired in Basic [...] chair alarm Needs in reach. Time In: 0943 Time [...] positioning Mobility Assessment/Intervention: Supine to Sit Mobility [place] Level: Supine->Sit: moderate assist (50% patient effort) [...] positioning Transfer Assessment/Intervention: Sit to Stand Transfer [place] Level: Sit->Stand: moderate assist (50% patient effort) Physical Assist: Sit->Stand: 2 person assist Assistive Device: Sit->Stand: gait belt, hand held assist Skilled Rationale: Verbal cues, Tactile cues, Hand placement, Positioning, Technique of activity Skilled Intervention/Details: Sit->Stand: x1 from EOB, x1 from recliner. Cues for technique and assuming an upright posture once standing Stand to Sit Transfer [place] Level: Stand->Sit: moderate assist (50% patient effort) Physical Assist: Stand->Sit: 2 person assist Assistive Device: Stand->Sit: gait belt, hand held assist Skilled Rationale: Verbal cues, Tactile cues, Hand placement, Positioning, Controlled descent for sitting Skilled Intervention/Details: Stand->Sit: Cues for positioning with recliner and using arms to help with controlled descent into chair Bed-Chair Transfer [place] Level: Bed<->Chair: maximum assist (25% patient effort) [...] appropriately position with chair. Outcome Score(s): CURRENT [facility] Daily Activity Inpatient Short Form Putting on/Taking Off Lower Body Clothin - Total Assistance Bathin - A Lot of Assistance Toiletin - Total Assistance Putting on/Taking Off Upper Body Clothin - A Lot of Assistance Groomin - A Lot of Assistance Eatin - Total Assistance CURRENT [facility] Activity Raw Score: 9 CURRENT [facility] Activity Functional Limitation/Modifier: 79.59% Currently Impaired in [...] clinical decisions and judgements. * Bella Cardenas, PROSTHETIC DENTIST-ALUMINUM BOAT INSPECTOR - 08/08/2024 7:21 AM EDT NEUROVASCULAR STROKE SERVICE Daily Progress Note IDENTIFYING INFORMATION Lindsay Acuna MR# [id number] 08/08/2024 HISTORY OF PRESENT ILLNESS Lindsay Acuna is a 78 y.o. female with PMH significant for CAD, HTN, HLD, T2DM, Afib (on Eliquis, although patient reports she has not been taking it) who presents with L hemiplegia, slurred speech. LKW 0915 on 08/02, later found down with slurred speech and L hemiplegia. She presented to [facility] and was seen on Telestroke, NIHSS 12. [...] 2b revascularization. INTERVAL HISTORY 08/05: [place] [facility] tomorrow 08/06: Failed MBS. Increased lopressor. [...] as above -Rate controlled on metoprolol Dysphagia: -[employer] following -NPO, DHT + TF -Failed MBS [...] Lindsay Acuna will likely be discharged to [facility] when medically ready Bella Cardenas, PROSTHETIC DENTIST-ALUMINUM BOAT INSPECTOR 08/08/2024 2:53 PM VITAL SIGNS Temp: [97.4 [...] for specific therapeutic recommendations, please see the crystallography teacher report of the speech pathologist. Examination performed [...] Status 1. [facility]- Reserved [facility] notified SW student confirming after call with Patient's daughter that [facility] is facility of choice. Facility reserved. AVS/DAVE updated. Chela Snyder, Social Work Student Available by Secure Chat Cosigned by OWEN Keller at 08/08/2024 7:39 AM EDT * Prema Resendez RN - 08/07/2024 2:39 PM EDT Care Management Progress Note Notified by SW student that patient's daughter, Gisela Acuna, has questions for this CM. Called Gisela, who asked if [facility] is able to accept or not. Discussed with Gisela that [facility] responded that they are out of network with patient's insurance, therefore only option would be private pay. Gisela stated that patient and patient's spouse are agreeable to [facility] as facility of choice, and Gisela is agreeable to [facility] as well. Updated SW student. Simin Resendez RN, BSN Clinical Road Equipment Operator [facility] * Chela Hannon - 08/07/2024 2:08 PM EDT Placement Plan PROGRAM THERAPIST met with Patient and spouse at bedside to discuss facility choice. Spouse mentioned that [facility] was first choice, though PROGRAM THERAPIST provided update that [facility] could not accept after reviewing. PROGRAM THERAPIST reviewed other IPR options with Spouse, who reports that [facility] would be facility of choice. Spouse discussed with daughter Gisela via phone, who is in agreement but requestsa return call. PROGRAM THERAPIST notified CCM. Chela Snyder, Social Work Student Available by Secure Chat Cosigned by OWEN Keller at 08/07/2024 2:11 PM EDT * Bella Cardenas APRN-GARRETT - 08/07/2024 6:54 AM EDT NEUROVASCULAR STROKE SERVICE Daily Progress Note IDENTIFYING INFORMATION Lindsay Acuna MR# [id number] 08/07/2024 HISTORY OF PRESENT ILLNESS Lindsay Acuna is a 78 y.o. female with PMH significant for CAD, HTN, HLD, T2DM, Afib (on Eliquis, although patient reports she has not been taking it) who presents with L hemiplegia, slurred speech. LKW 0915 on 08/02, later found down with slurred speech and L hemiplegia. She presented to [facility] and was seen on Telestroke, NIHSS 12. [...] 2b revascularization. INTERVAL HISTORY 08/05: [place] [facility] tomorrow 08/06: Failed MBS. Increased lopressor. [...] as above -Rate controlled on metoprolol Dysphagia: -[employer] following -NPO, DHT + TF -Failed MBS [...] Lindsay Acuna will likely be discharged to [facility] when medically ready Bella Cardenas, PROSTHETIC DENTIST-ALUMINUM BOAT INSPECTOR 08/07/2024 3:06 PM VITAL SIGNS Temp: [97.5 [...] for specific therapeutic recommendations, please see the crystallography teacher report of the speech pathologist. Examination performed [...] authorization, transportation Current Referrals and Status 1. [facility]: Available 2. [facility]: Available 3. [facility]: Available (pending PEG or diet and their MD requested aspirin started before discharge) 4. [facility]: Available 5. [facility]: Unavailable, out of network 6. [facility]: Unavailable, Incorrect Level of Care 7. [facility] IPR: sent Met with patient and patient's spouse, Ike, at bedside to provide choice list. Ike called patient's daughter, Gisela Acuna, to discuss as well. Gisela requested information on private pay at [facility], messaged [facility] liaison and then provided information to Gisela. Gisela requested CM sendreferral to [facility] IPR. Plan for family to review choice list FREDRICK camargo/SW team will update patient and family regarding [facility] IPR response tomorrow morning. This CM's contact information provided to Ike Acuna and Gisela Acuna for any further questions. Simin Resendez RN, BSN Clinical Road Equipment Operator [facility] * Florinda Velasquez, PT - 08/06/2024 2:30 PM EDT Acute [...] minutes Mobility Assessment/Intervention: Supine to Sit Mobility [place] Level: Supine->Sit: moderate assist (50% patient effort) Bed Features/Set-up: Supine->Sit: Head of bed elevated, Use of bed rail Skilled Rationale: Positioning, Sequencing Skilled Intervention/Details: Supine->Sit: step by step cues for sequencingg Transfer Assessment/Intervention: Sit to Stand Transfer [place] Level: Sit->Stand: moderate assist (50% patient effort) [...] left UE during transitional movements Bed-Chair Transfer [place] Level: Bed<->Chair: moderate assist (50% patient effort) Physical Assist: Bed<->Chair: 2 person assist Assistive Device: Bed<->Chair: gait belt, hand held assist Skilled Rationale: Positioning, Hand placement, Verbal cues, Sequencing Skilled Intervention/Details: Bed<->Chair: Pt educated in bed to C commode transfer x 2-3 steps with cues for LE sequencing, left LE weakness requiring intermittent blocking Gait/Functional Mobility Assessment/Intervention: Gait Assessment [place] Level: Gait: (mod/max) Physical Assist: Gait: 2 [...] prevent buckling. Stairs Assessment/Intervention: Outcome Score(s): [facility]RENT [facility] Basic Mobility Inpatient Short Form Turning [...] with a railin - Total Assistance CURRENT [facility] Mobility Raw Score: 9 CURRENT [facility] Mobility Functional Limitation: 81.38% Impaired in Basic [...] Physical Therapy Discharge Summary. * Nimesh Balderrama [facility] - 08/06/2024 1:42 PM EDT Department of Pharmacy Admission Medication Reconciliation Note Patient: Lindsay Acuna Room/Bed: 1043/A I have reviewed the patient's home medication list with the following sources Dispense Report. The home medication list status is: complete. All changes to the home medication list have been updated in [facility]. Updated SOLAR THERMAL INSTALLER Med List: Prior to Admission Medications Prescriptions [...] with any further questions. Name: Nimesh Balderrama [facility] Phone #: [phone] Date/Time: 08/06/2024 1:42 PM Time Spent: 10 [...] control, Facilitate positioning Grooming Intervention/Details: Seated at [facility], pt completed brushing hair and setting up [...] noted Mobility Assessment/Intervention: Supine to Sit Mobility [place] Level: Supine->Sit: moderate assist (50% patient effort) [...] completion. Transfer Assessment/Intervention: Sit to Stand Transfer [place] Level: Sit->Stand: (x 1 trial from EOB [...] and kyphotic posture. Stand to Sit Transfer [place] Level: Stand->Sit: moderate assist (50% patient effort) Assistive Device: Stand->Sit: gait belt (Arm and arm assist.) Skilled Rationale: Cues for increased safety, Initiation and execution of task, Technique of activity, Controlled descent for sitting, Ischial assist, Arm in arm, Tactile cues, Verbal cues, Hand placement, Sequencing, Positioning Bed-Chair Transfer [place] Level: Bed<->Chair: moderate assist (50% patient effort) [...] with left LE). Functional Mobility: Functional Mobility [place] Level: Functional Mobility/Gait: (Moderate-max assistance) Physical Assist: [...] overall decreased insight/awareness intodeficits. Outcome Score(s): CURRENT [facility] Daily Activity Inpatient Short Form Putting on/Taking Off Lower Body Clothin - Total Assistance Bathin - A Lot of Assistance Toiletin - Total Assistance Putting on/Taking Off Upper Body Clothin - A Lot of Assistance Groomin - A Lot of Assistance Eatin - Total Assistance ([place].) CURRENT [facility] Activity Raw Score: 9 CURRENT [facility] Activity Functional Limitation/Modifier: 79.59% Currently Impaired in [...] current Occupational Therapy Discharge Summary. * Taran Zamudio León, PROSTHETIC DENTIST-ALUMINUM BOAT INSPECTOR - 08/06/2024 7:49 AM EDT NEUROVASCULAR STROKE SERVICE Daily Progress Note IDENTIFYING INFORMATION Lindsay Acuna MR# [id number] 08/06/2024 HISTORY OF PRESENT ILLNESS Lindsay Acuna is a 78 y.o. female with PMH significant for CAD, HTN, HLD, T2DM, Afib (on Eliquis, although patient reports she has not been taking it) who presents with L hemiplegia, slurred speech. LKW 0915 on 08/02, later found down with slurred speech and L hemiplegia. She presented to [facility] and was seen on Telestroke, NIHSS 12. [...] 2b revascularization. INTERVAL HISTORY 08/05: [place] [facility] tomorrow 08/06: Failed MBS. Increased lopressor. Spouse [...] as above -Rate controlled on metoprolol Dysphagia: -[employer] following -NPO, DHT + TF -Failed MBS [...] Lindsay Acuna will likely be discharged to [facility] when medically ready Taran Traore APRN-ALUMINUM BOAT INSPECTOR 08/06/2024 1:43 PM VITAL SIGNS Temp: [96.5 [...] for specific therapeutic recommendations, please see the crystallography teacher report of the speech pathologist. Examination performed [...] stable since the MRI from earlier today Electronically Signed By: Alissa Chun M.D., [facility] on 08/03/2024 12:52 PM MRI SPINE CERVICAL WITHOUT CONTRAST Final Result IMPRESSION: [...] Progress Note IDENTIFYING INFORMATION Lindsay Acuna MR# [id number] 08/05/2024 HISTORY OF PRESENT ILLNESS Lindsay Acuna is a 78 y.o. female with PMH significant for CAD, HTN, HLD, T2DM, Afib (on Eliquis, although patient reports she has not been taking it) who presents with L hemiplegia, slurred speech. LKW 0915 on 08/02, later found down with slurred speech and L hemiplegia. She presented to [facility] and was seen on Telestroke, NIHSS 12. [...] 2b revascularization. INTERVAL HISTORY 08/05: Transfer to [facility] tomorrow PHYSICAL EXAM Gen: awake, alert, NAD [...] as above -Rate controlled on metoprolol Dysphagia: -[employer] following -NPO, DHT + TF -MBS tomorrow HLD, POA: -Atorvastatin 40 mg daily CAD, POA: -Hold ASA for 7 days due to ICH T2DM, POA: -SSI regular + accuchecks CKD Stage 3A, POA: Baseline Cr 1.3 -Avoid nephrotoxins, monitor Hypothyroidism, POA: -Continue home levothyroxine 75 mcg daily Disposition: Lindsay Acuna will likely be discharged to [facility] when medically ready Taran Traore APRN-ALUMINUM BOAT INSPECTOR 08/05/2024 2:19 PM VITAL SIGNS Temp: [97.8 [...] 30 mL Per NG tube Q4H * RIKI Sharma - 08/05/2024 11:49 AM EDT Acute Care [...] on the below outcome measures/assessment score(s), and [employer] clinical judgment, discharge destination recommendation is: Pending [...] Impaired cognitive skills limiting saf ety/insight Acute [employer] Outcomes Tracking Communicate basic wants and needs?: [...] oropharyngeal swallow function to most appropriately guide [employer] plan of care. Of note, patient is [...] Currentdeficits impact her safety and independence. Ongoing [employer] services are warranted. Subjective information: Awake, alert, [...] O2 Device: room air (08/05 0830) Acute [employer] Goals Plan of Care by Queta Gardner, [employer] at 08/05/2024 11:49 AM Version 1 of [...] oropharyngeal swallow function to most appropriately guide [employer] plan of care Outcome: Ongoing Problem: [employer] - Cognition Goal: Orientation Log - Patient [...] better assess deficits and most appropriately guide [employer] plan of care Outcome: Met Tx: Noted [...] Plan for next session: 08/05: Good candidate; [facility] [employer] Outcomes: [employer] Outcomes / Standardized Measures Score The Orientation [...] wrist restraints, RN aware Needs in reach. [employer] Evaluation and Treatment Time Speech Therapy - Individual 89980: 8 Swallowing Dysfunction Treatment 04498: 9 Upon discontinuation of Acute Care Speech Therapy Services or patient discharge from the hospital this note represents the current Speech Therapy Discharge Summary * Chela Hannon - 08/05/2024 10:37 AM EDT Placement Plan Expected Discharge Date: TBD Referred Level of Care: IPR Barriers: medical stability, bed availability Current Referrals and Status 1. [facility]- sent; denied (Patient is OON) 2. [facility]- sent 3. [facility]- sent 4. [facility]- sent 5. [facility]- sent 6. [facility] PROGRAM THERAPIST met with Patient and Spouse at bedside to discuss discharge planning. Patient and spouse were agreeable to SW visit. PROGRAM THERAPIST discussed therapy recommendations with Spouse for Patient to go to [facility] at discharge. Spouse is agreeable to a referral being sent to [facility]. Referral sent. Spouse requested to speak to SW about assessing Patient for dementia. PROGRAM THERAPIST and bedside RN encouragedSpouse to discuss with Patient's outpatient provider. Chela Snyder, Social Work Student Available by Secure Chat Cosigned by OWEN Keller at 08/05/2024 11:22 AM EDT * Savana Leung, RD - 08/05/2024 10:10 AM EDT NUTRITION ASSESSMENT Nutrition Recommendations and Plan of Care: 1. Diet: NPO. Advancement per team/[employer] recommendation 2. Ordered TF: Glucerna 1.5 @ goal rate 55mL/h x 22 hours (holding for synthroid) -Free water per team, suggest minimum of 30ml q 4hr for tube patency 3. Monitor TF/PO intake, bowel function, skin integrity, weight change, lab values. 4. RD to follow up October Armand is a 78 y.o. female with hx [...] time. Per team, pt failed bedside swallow. [employer] consulted for swallow eval. 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 Tmax: 97.8*F BP: (!) 173/94 Pulse (Heart Rate): 98 Oxygen Therapy: room air Labs reviewed: Na/K+/Phos/Mg/Ca: 143/3.8/2.7/1.8/-- (08/05 26) Bun/Creat/Cl/CO2/Glucose: 35/1.45/108/25/242 (08/05 26) WBC/Hgb/Hct/Plts: 10.61/12.6/39.6/198 (08/05 002) Meds: Vital AF 1.2 Ruiz Stopped (08/05/24 [...] proximal second portion of the duodenum. BM: SOLAR THERMAL INSTALLER Urine: 725mL Skin: Raghu Score: 13 Active Wounds: Wound Sheath Site 08/02/24 1500 Right Radial (3) Wound Abrasion 08/02/24 2109 Left;Upper Face (3) Edema- None Estimated Nutrition Needs: Based on IBW (61.4kg) Estimated Kcals Needs: 4273-1115 kcals (25-30kcals/kg) Estimated Pro Needs: 74-92g Pro (1.2-1.5g/kg) Estimated Fluid Needs: Per MD Nutrition Focused Physical Exam Completed?: completed Subcutaneous Fat Loss: Orbital Region (Orbital Fat Pads): WDL Cheek Region (Buccal Fat Pads): WDL Upper Arm Region (Triceps): WDL Thoracic and Lumbar Region (Ribs, Lower Back, Midaxillary Line): WDL Muscle Wasting: Hoahaoism Region (Temporalis Muscle): deferred (lac over eyebrow) [...] (AAIM) criteria (2012) ELVIRA Ho, RD, LD, CNSC Pager: [phone] * Rashad Rg MD - 08/05/2024 9:42 AM EDT 78F admitted to the [facility] with Rt M1 occlusion s/p TICI2b revascularization. [...] critical care time 31min. * Shanna Russ, JASIEL-ALUMINUM BOAT INSPECTOR - 08/05/2024 7:20 AM EDT NEUROCRITICAL CARE [...] Visual richards intact to confrontation. PERRL. 3mm environmental services aide III, IV and : EOMI. No nystagmus. [...] aggressive pulm edema, OOB as toleratd - [id number], encourage pulmonary toileting Cards: Essential HTN HLD [...] TUBE FEEDING with meds (per DHT) - [place] Swallow Screening Result: failed=NPO Bowel regimen: - Last Bowel Movement: (prior to admission) - Senna 17.2 mg Q12H, miralax BID, suppository PRN Stress ulcer prophylaxis: - none Dysphagia - DHT placed - [employer] following; NPO continue following, on TF - [...] not indicated DVT: subcutaneous heparin [x] Lines [place]: n/a Gallegos: remove Rectal tube: n/a Enteral [...] the assigned neurocritical care provider (resident, fellow, CRIMINAL JUSTICE INSTRUCTOR, orPA) or page/call the corresponding number below NCC1 (Beds 3053-0673): Struthers # [phone], pager #[phone] NCC2 (Beds [phone], 12 Nando, and overflow): Pernell #: [phone], pager #[phone] * Florinda Velasquez, PT - 08/04/2024 1:36 [...] noted Mobility Assessment: Supine to Sit Mobility [place] Level: Supine->Sit: moderate assist (50% patient effort) [...] EOB Transfer Assessment: Sit to Stand Transfer [place] Level: Sit->Stand: moderate assist (50% patient effort) Physical Assist: Sit->Stand: 2 person assist Assistive Device: Sit->Stand: gait belt, hand held assist Skilled Rationale: Positioning, Sequencing, Hand placement, Verbal cues Skilled Intervention/Details: Sit->Stand: x 1 from EOB Bed-Chair Transfer [place] Level: Bed<->Chair: moderate assist (50% patient effort) Physical Assist: Bed<->Chair: 2 person assist Assistive Device: Bed<->Chair: gait belt, hand held assist Skilled Rationale: Positioning, Sequencing, Hand placement, Verbal cues Skilled Intervention/Details: Bed<->Chair: x 2-3 steps from bed to chair Gait/Functional Mobility: Stairs: Outcome Score(s): CURRENT [facility] Basic Mobility Inpatient Short Form Turning over [...] with a railin - Total Assistance CURRENT [facility] Mobility Raw Score: 10 CURRENT [facility] Mobility Functional Limitation: 76.75% Impaired in Basic [...] Edema: Mobility Assessment: Supine to Sit Mobility [place] Level: Supine->Sit: moderate assist (50% patient effort) Physical Assist: Supine->Sit: 2 person assist Bed Features/Set-up: Supine->Sit: Head of bed elevated Skilled Rationale: Positioning, Hand placement, Verbal cues, Technique of activity Transfer Assessment: Sit to Stand Transfer [place] Level: Sit->Stand: moderate assist (50% patient effort) Physical Assist: Sit->Stand: 2 person assist Assistive Device: Sit->Stand: gait belt, hand held assist Skilled Rationale: Positioning, Hand placement, Verbal cues, Technique of activity Stand to Sit Transfer [place] Level: Stand->Sit: moderate assist (50% patient effort) Physical Assist: Stand->Sit: 2 person assist Assistive Device: Stand->Sit: hand held assist Skilled Rationale: Positioning, Hand placement, Verbal cues, Arm in arm, Controlled descent for sitting Bed-Chair Transfer [place] Level: Bed<->Chair: moderate assist (50% patient effort) Physical Assist: Bed<->Chair: 2 person assist Assistive Device: Bed<->Chair: gait belt, hand held assist Skilled Rationale: Arm in arm, Patellar block, Technique of activity Skilled Intervention/Details: Bed<->Chair: LLE weakness/blocking of patella with transfer, pivot to right Functional Mobility: Outcome Score(s): CURRENT -[facility] Daily Activity Inpatient Short Form Putting on/Taking Off Lower Body Clothin - A Lot of Assistance Bathin - A Lot of Assistance Toiletin - Total Assistance Putting on/Taking Off Upper Body Clothin - A Lot of Assistance Groomin - A Little Assistance Eatin - Total Assistance CURRENT -[facility] Activity Raw Score: 11 CURRENT AM-[facility] Activity Functional Limitation/Modifier: 70.42% Currently Impaired [...] assessment and plan as documented by the CRIMINAL JUSTICE INSTRUCTOR with my changes/additions added. Patient is a [...] ICH x 7 days - Statin - PT/OT/[employer] evaluation Pulmonary: No acute issues, appears to [...] and other supportive care as per the CRIMINAL JUSTICE INSTRUCTOR note from the same day This patient [...] care services to the patient today independent [facility], teaching and other care providers. Management of the above was performed. My time managing this critically ill patient included review of interval history, laboratories, radiology and cons ultation reports; performing a physical examination; discussing the patient with the multi-disciplinary team and managing life sustaining therapies to prevent imminent clinical deterioration. Richard Mejia MD Neurocritical Care Attending * Balbir Mccoy, PROSTHETIC DENTIST-ALUMINUM BOAT INSPECTOR - 08/04/2024 7:44 AM EDT NEUROCRITICAL CARE [...] Visual richards intact to confrontation. PERRL. 3mm environmental services aide III, IV and : EOMI. No nystagmus. [...] SpO2 >92%; wean FiO2 as tolerated - [id number], encourage pulmonary toileting Cards: Essential HTN HLD [...] TUBE FEEDING with meds (per DHT) - [place] Swallow Screening Result: failed=NPO Bowel regimen: - Last Bowel Movement: (prior to admission) - Senna 17.2 mg Q12H, miralax at bedtime Stress ulcer prophylaxis: - none Dysphagia - DHT placed - [employer] following - Tube feed: Vital AF with goal rate 70 mL/h Endo: DM Type 2 Hypothyroid DM - Goal blood glucose 140-180 - home regimen: Glimepiride 2 mg daily, metformin 1000 mg daily - current regimen: Insulin high SSI regular Q6H, scheduled insulin 4 units Q6H for tube feed coverage. - A1c: 7.8 Recent Labs 08/02/24 1843 08/02/24 2325 08/03/24 1719 08/04/24 0003 08/04/24 0620 GLUCOSE 210* < > 246* 178 [...] Labs 08/02/24 1843 08/03/24 0002 08/04/24 0003 WBC 8.16 8.43 11.41* RBC 4.76 [...] not indicated DVT: subcutaneous heparin [x] Lines [place]: n/a Gallegos: inserted 08/02, (indication: strict I&O with concern for KELI) Rectal tube: n/a Enteral access: inserted 08/03, [ ] gastric; [x ] post-pyloric CENTRAL LINES: Central Line Indications: No line currently in place Can line/s be removed today? No line in place at this time Dressing/s Clean/Dry/Intact?: No line currently in place Discussed with NCCU Attending, Dr. Jackie Mccoy, PROSTHETIC DENTIST-ALUMINUM BOAT INSPECTOR 08/04/24 7:44 AM Check the treatment team to find the assigned neurocritical care provider (resident, fellow, CRIMINAL JUSTICE INSTRUCTOR, orPA) or page/call the corresponding number below NCC1 (Beds 4782-4911): Struthers # [phone], pager #[phone] NCC2 (Beds 7840-5167, 12 Nando, and overflow): Struthers #: [phone], pager #[phone] * Rafael Garcia MD - 08/03/2024 2:16 PM EDT NEUROVASCULAR Consult Daily Progress Note IDENTIFYING INFORMATION Lindsay Acuna MR# [id number] 08/03/2024 HISTORY OF PRESENT ILLNESS Lindsay Acuna is a 78 y.o. female with PMH significant for CAD, HTN, HLD, T2DM, Afib (on Eliquis, although patient reports she has not been taking it) who presents with L hemiplegia, slurred speech. She was last seen normal by her at 0915, later found down with slurred speech and L hemiplegia. She presented to [facility] and was seen on Telestroke, NIHSS 12. [...] speech and L hemiplegia. She presented to [facility] and was seen on Telestroke, NIHSS 12. [...] workup. Delbert Kasper MD * Nohelia Oconnell, [employer] - 08/03/2024 12:09 PM EDT Acute Care [employer] Speech/Language/Cognitive Evaluation Best mode of Communication: spoken language (regular speech) Discharge Recommendations: Based on the below outcome measures/assessment score(s) and [employer] clinicaljudgment, discharge destination recommendation is: (Skilled speech therapy services at next level of care) Barriers to discharge home: Cognitive impairments that impact safety and independence Supporting factors for discharge setting: Impaired swallow function limiting nutritional status andsafety with oral intake Acute [employer] Outcomes Tracking Communicate basic wants and needs?: [...] speech and L hemiplegia. She presented to [facility] and was seen on Telestroke,NIHSS 12. CTH [...] 0 Asthenia (A): 0 Strain (S): 0 [employer] Outcomes / Standardized Measures Score The Orientation [...] unable to respond. Total Score: 12 Acute [employer] Goals Plan of Care by RIKI Hayes at 08/03/2024 11:25 AM Version 1 of 1 Problem: Dysphagia Goal: Ongoing Assessment - Patient will participate in ongoing assessment by accepting various PO consistency trials with appropriate participation/oral acceptance and no significant respiratory complications to determine readiness for diet advancement Outcome: Ongoing Problem: [employer] - Cognition Goal: Orientation Log - Patient [...] better assess deficits and most appropriately guide [employer] plan of care Outcome: Ongoing Speech Language [...] of session: bed alarm Needs in reach. [employer] Evaluation and Treatment Time Speech Eval - Sound Production W/Lang Comp and Exp 10580: 11 Swallowing Eval 43437: 10 Upon discontinuation of Acute Care Speech [...] on the below outcome measures/assessment score(s) and [employer] clinicaljudgment, discharge destination recommendation is: Deferred to PT/OT recomendations related to mobility Current therapy frequency recommendation in acute care: Swallow Therapy Frequency: 5 times a week Acute [employer] Outcomes Tracking Communicate basic wants and needs?: [...] speech and L hemiplegia. She presented to [facility] and was seen on Telestroke,NIHSS 12. 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 Prior [employer] history: No prior speech history per chart [...] and Liquids Trialed Modality Amount Ice Teaspoon, [employer]-fed 3x Thin Teaspoon 3x Oral Phase Function [...] Patient presents with presumed pharyngeal phase impairments. [place] Swallow Screen: (administered by: RN) [place] Swallow Screening Screening Exclusion Criteria: none, continue with [place] Swallow Screening Cognitive Screen: Orientation: able to [...] Water Swallow Challenge : coughing/throat clearing-overt signs/symptoms [place] Swallow Screening Result: failed=NPO Voice and Swallow [...] Ok for ice chips with RN supervision. [employer] will continue to follow for ongoing dysphagia management. Patient Education/Instruction Learners: Patient Education provided: Dysphagia recommendation risk: benefit analysis, Role of this discipline Teaching method: Verbal Education/Instruction Learner response: Needs review Learning preferences: Auditory Learning considerations: Cognition Plan for next session: 08/03: Good Prognosis, ongoing dysphagia management to determine readiness for diet advancement vs instrumental. Acute [employer] Goals Plan of Care by RIKI Hayes at 08/03/2024 11:25 AM Version 1 of 1 Problem: Dysphagia Goal: Ongoing Assessment - Patient will participate in ongoing assessment by accepting various PO consistency trials with appropriate participation/oral acceptance and no significant respiratory complications to determine readiness for diet advancement Outcome: Ongoing Problem: [employer] - Cognition Goal: Orientation Log - Patient [...] better assess deficits and most appropriately guide [employer] plan of care Outcome: Ongoing Speech Language Pathologist: RIKI Hayes, BCS-S Board Certified Specialist in Swallowing and Swallowing Disorders Available via [facility] Chat Time In: 1130 Time Out: 1151 Total Visit Time: 21 minutes Total Treatment Time (skilled, billable minutes): 21 minutes Non-billable assistance during session: none Assisted by during session: Patient's PPE used during patient interaction: gloves Patient location/status at end of session: bed with head of bed elevated Patient alarms at end of session: bed alarm Needs in reach. [employer] Evaluation and Treatment Time Speech Eval - Sound Production W/Lang Comp and Exp 51544: 11 Swallowing Eval 36195: 10 Upon discontinuation of Acute Care Speech Therapy Services or patient discharge from the hospital this note represents the current Speech Therapy Discharge Summary * Richard Mejia MD - 08/03/2024 10:30 AM EDT I have independently seen and examined the patient on 08/03/24. I agree with the history, examination, assessment and plan as documented by the CRIMINAL JUSTICE INSTRUCTOR with my changes/additions added. Patient is a [...] the setting of ICH - Statin - PT/OT/[employer] evaluation Pulmonary: No acute issues, appears to [...] and other supportive care as per the CRIMINAL JUSTICE INSTRUCTOR note from the same day This patient [...] care services to the patient today independent [facility], teaching and other care providers. Management of the above was performed. My time managing this critically ill patient included review of interval history, laboratories, radiology and cons ultation reports; performing a physical examination; discussing the patient with the multi-disciplinary team and managing life sustaining therapies to prevent imminent clinical deterioration. Richard Mejia MD Neurocritical Care Attending * Chela Hannon - 08/03/2024 9:47 AM EDT Discharge Planning Assessment Is the patient able to participate in the assessment?: Yes; with assistance from spouse Care Management Plan PROGRAM THERAPIST met with Patient and Spouse at bedside to complete Initial Assessment. They were agreeable to SW visit. Patient was lethargic though able to answer some short questions. Patient consented to Spouse assisting with assessment. Spouse/Patient report that Patient has never completed a HCPOA. They expressed interest, and PROGRAM THERAPIST will follow to complete document when Patient is more alert and oriented. Spouse reports himself and Patient live in a ranch-style home with strong supports from their community, including 2 neighbors that have assisted at this time. He noted that himself and Patient recently returned from a visit to [facility] for their 50 anniversary. Spouse reports that their 2 children will be visiting soon. PROGRAM THERAPIST explained SW role and offered resources. Spouse [...] Name and Contact information: Ike Acuna P: [phone] Adult Child(jj), List All Adult Children: Yes Name and Contact information: Donnell Acuna P: [phone]; Nathen Acuna P: [phone] Would you like to add additional adult [...] for Advance Care Planning? : Patient Agreeable (PROGRAM THERAPIST to follow for HCPOA completion when Patient is more alert and oriented) Medication Management Does the patient have prescription insurance coverage? : Yes Is the patient on Anticoagulation? : Yes (Per chart review, Patient is on anticoagulation but has not been taking it (does not recall the last time she took a dose)) Provider or Clinic that manages Anticoagulation?: (unspecified at this time) [facility] [address] [place] [phone] [facility] [address] [place] [id number] Living Environment and Support System Is the patient from a facility or assisted?: No Living Environment: House ("1 bedroom ranch") Patient Caregiving Responsibilities: Self Patient-identified caregiver/support network: Family, Friends, Neighbors, Restoration Who does the patient identify as a teachable caregiver(s)?: Spouse or Partner Services Does the patient use a home health or hospice agency?: No Current with dialysis?: No Does the patient use any community programs or services?: No Does patient use DME? : venus cane, rollator (collapsible cane) DME provider name [...] themselves at home? : Unable to assess Editorial Writer Does the patient or public service representative express financial concerns? : No Chela Snyder Social Work Student Available by Secure Chat Cosigned by OWEN Keller at 08/03/2024 11:20 AM EDT * Balbir Jaiden Cardenash, PROSTHETIC DENTIST-ALUMINUM BOAT INSPECTOR - 08/03/2024 7:40 AM EDT NEUROCRITICAL CARE [...] Visual richards intact to confrontation. PERRL. 3mm environmental services aide III, IV and : EOMI. No nystagmus. [...] SpO2 >92%; wean FiO2 as tolerated - [id number], encourage pulmonary toileting Cards: Essential HTN HLD [...] electrolytes replaced per NCCU protocol Recent Labs 08/02/24 1843 08/03/24 0002 SODIUM 139 138 POTASSIUM 3.7 4.3 CHLORIDE 105 103 CO2 22 23 BUN 18 18 CREATSERUM 1.37* 1.35* PHOSPHORUS -- 3.5 MAGNESIUM 1.2* 2.1 ICA -- 4.24* 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 Recent Labs 08/02/24 1843 ALBUMIN 3.5 BILIDIRECT 0.1 BILITOTAL 0.6 ALKPHOS 117 ALT 10 AST 17 TP 6.3* - DIET NPO WITHOUT meds - Bowel regimen: - Last Bowel Movement: (SOLAR THERMAL INSTALLER) - Senna, miralax Stress ulcer prophylaxis: - none Dysphagia - DHT placed - [employer] following - Tube feed: Vital AF with goal rate 70 mL/h Endo: DM Type 2 Hypothyroid DM - Goal blood glucose 140-180 - home regimen: Glimepiride 2 mg daily, metformin 1000 mg daily - current regimen: Insulin high SSI regular Q6H - A1c: 7.8 Recent Labs 08/02/24 1843 08/02/24 2325 08/03/24 0002 GLUCOSE 210* 161 151 HGBA1C 7.8* -- -- Hypothyroid - continue home synthroid 75 mcg daily ID: No Current Issues Recent Labs 08/02/24 1843 08/03/24 0002 WBC 8.16 8.43 - Temp (24hrs), [...] 08/07 Heme/Onc: No Current Issues Recent Labs 08/02/24184208/03/24 0002 WBC 8.16 8.43 RBC 4.76 4.63 [...] prophylaxis - rationale: post thrombectomy [x] Lines [place]: n/a Gallegos: inserted 08/02, (indication: strict I&O) [...] the assigned neurocritical care provider (resident, fellow, CRIMINAL JUSTICE INSTRUCTOR, orPA) or page/call the corresponding number below NCC1 (Beds 5992-7402): Pernell # [phone], pager #[phone] NCC2 (Beds 2481-0334, 12 [address]ando, and overflow): Pernell #: [phone], pager #[phone] * Nando Caceres MD - 08/03/2024 6:00 [...] wrist was soft, pulses intact WBC/Hgb/Hct/Plts: 8.43/13.5/42.8/227 (03/22 0002) Na/K+/Phos/Mg/Ca: 138/4.3/3.5/2.1/-- (08/03 1) Bun/Creat/Cl/CO2/Glucose: 18/1.35/103/23/151 (08/03 [...] nccu Neurosurgery signing off Please page NS2 ([id number]) with questions Complexity. Hypocalcemia - Continue to monitor and replete. Any conditions listed below are present on admission unless otherwise specified. . Cosigned by Prema Ramos MD at 08/03/2024 6:37 PM EDT * Andreas Ga RPH - 08/02/2024 10:57 PM EDT Department of Pharmacy Renal Documentation Note Patient: Lindsay Acuna Room/Bed: 1043/A Assessment and Plan: The patient's most recent [...] any questions, Name: Andreas Ga RPH Phone: [phone] Date/Time: 08/02/2024 10:57 PM * Richard Mejia MD - 08/02/2024 6:01 PM EDT I have independently seen and examined the patient on 08/02/24. I agree with the history, examination, assessment and plan as documented by the CRIMINAL JUSTICE INSTRUCTOR with my changes/additions added. Patient is a [...] to determine stroke burden - Statin - PT/OT/[employer] evaluation Pulmonary: No acute issues, appears to [...] stage 3a - Maintain euvolemia GI/Nutrition: - [employer] evaluation - Bowel regimen to prevent constipation [...] and other supportive care as per the CRIMINAL JUSTICE INSTRUCTOR note from the same day This patient [...] MD Neurocritical Care Attending [facility] Consult note* Niru Koch MD [...] IBD Consult WebExchange --> IM Consult Serv N --> [facility] IBD consult service Fellow [...] today. Consent obtained by at bedside. - [employer] eval: none - RD eval: none PAST [...] dependence ASSESSMENT/RECOMMENDATIONS: - primary team feels that termite exterminator enteric nutrition is warranted in s/o CVA. Patient is appropriate for endoscopic PEG placement. Consent obtained from at bedside. - we will tentatively plan for EGD for PEG placement 08/09 as add on case. See pre procedure recommendations below. For PEG: - Ancef ordered (1 gm if patient is <80 kg; 2 gm if patient is >80 kg) as "operations support analyst to the procedure"). - Please make NPO [...] Hepatology, and Nutrition Clinical Fellow PGY-4 Pager: [phone] For urgent/stat calls 5pm to 7am or all day on the weekend, please page the on- call GI fellow on WebExchange. IM Consult Serv GHN --> [facility] STAT/NEW GI consults For follow up questions regarding this patient, contact the IBD consults fellow or DAHLIA on WebExchange. IM Consult Serv GHN --> [facility] [...] and medical decisions as outlined. Need for termite exterminator non-oral enteric nutrition per primary team. We will facilitate this with planned PEG tube placement. Before placement, non-GI management of TF should be established to avoid delays. David Woods M.D. * Emelyn Suazo, JASIEL-ALUMINUM BOAT INSPECTOR - 08/05/2024 9:24 AM EDTAssociated Order(s): IP CONSULT TO GERIATRICS Geriatrics IP Consult Service - New Consult Note Assessment and Plan Debility with CVA with left side weakness PT / OT recs for IRF [employer] as planned for dysphagia DHT for entral nutrition AMS Differential includes CVA, delirium , neurocognitive disorder, medication side effects Last prn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 MD - 11/28/2023 9:40 AM EDT [...] adenoma; duefor colonoscopy; will contact GI in [place] Lipid: Does not watch diet or exercise. [...] mouth daily before breakfast. blood sugar diagnostic (REBIScan ULTRA TEST) test strip Test Blood Sugar [...] 1 tablet by mouth once daily. lancets (Jer[employer] VenturesTOUCH DELICA PLUS LANCET) 30 gauge Test blood [...] kidney disease, unspecified CKD stage, unspecified whether intermediate insulin use (HCC) - ICD9: 250.40, 585.9, [...] Past Histories independently gathered by the clinical biomedical equipment support specialist and the remaining scribed note [...] AM. Adenike Walton MA documented in this encounterL[facility]07-[facility]24 NoteHNO ID: [id number] Author: KAMERON CARUSO MD Service: ? Author [...] due for colonoscopy; will contact GI in [place] Lipid: Does not watch diet or exercise. [...] mouth daily before breakfast. blood sugar diagnostic ([employer] VenturesTOUCH ULTRA TEST) test strip Test Blood Sugar [...] 1 tablet by mouth once daily. lancets ([employer]uresTOUCH DELICA PLUS LANCET) 30 gauge Test blood [...] alert, in no acute (more content not included)...[facility]05-28-2024 NoteHNO ID: [id number] Author: DAVID DUPREE APRN.ALUMINUM BOAT INSPECTOR Service: ? Author Type: Nurse Practitioner Type: [...] 1 tablet by mouth once daily. lancets ([employer]uresTOUCH DELICA PLUS LANCET) 30 gauge Test blood [...] linear pattern noted highlighted (more content not included)...[facility] 10-10-2023 History of Present illness Narrative* David Dupree, JASIEL.[facility] - 10/10/2023 7:36 AM EDT Images [...] of care. This note was generated using DistalMotion software. It may contain errors in wording, punctuation, or spelling. David Dupree APRN.ALUMINUM BOAT INSPECTOR documented in this encounterLancaster Municipal Hospital05-17-2024 NoteHNO ID: [id number] Author: RADHA LEVINE APRN.GARRETT Service: ? Author Type: Nurse Practitioner Type: Progress Notes Filed: 09/29/2023 18:12 Note Text: This note was created using RelinkLabsriter. Subjective Lindsay Acuna is a 77 year old female. 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 Denies fever or chills Denies malaise or fatigue Denies new lotions, soaps, or medicines States that she was working out in the garden the same day the rash erupted. The history is provided by the patient. No foreign language interpreter was used. Rash This is a new [...] 1 tablet by mouth once daily. lancets ([employer]uresTOUCH DELICA PLUS LANCET) 30 gauge Test blood [...] kg/m? Physical Exam Vitals (more content not included)...[facility]05-17-2024 History of Present illness Narrative* Radha Levine APRN.ALUMINUM BOAT INSPECTOR - 09/29/2023 2:32 PM EDT This note was created using RelinkLabsriter. Subjective Lindsay Acuna is a 77 year old female. 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 Denies fever or chills Denies malaise or fatigue Denies new lotions, soaps, or medicines States that she was working out in the garden the same day the rash erupted. The history is provided by the patient. No foreign language interpreter was used. Rash This is a new [...] worsen. Radha Levine APRN.CNP documented in this encounterLancaster [facility]05-07-2024 Telephone encounter Note * Telephone Encounter - Mj Glover APRN.CNP - 09/19/2023 9:46 AM EDT The following approved medication requests have been transmitted electronically. Requested Prescriptions Pending Prescriptions Disp Refills glimepiride (AMARYL) 2 mg tablet 90 tablet 3 Sig: Take 1 tablet by mouth daily with breakfast. Mj Glover APRN.CNP [facility]05-07-2024 Miscellaneous Notes* Telephone Encounter - Mj Glover APRN.CNP - 09/19/2023 9:46 AM EDT The following approved medication requests have been transmitted electronically. Requested Prescriptions Pending Prescriptions Disp Refills glimepiride (AMARYL) 2 mg tablet 90 tablet 3 Sig: Take 1 tablet by mouth daily with breakfast. Mj Glover APRN.CNP * Telephone Encounter - Brigitte Dorsey [...] you. Brigitte Dorsey RN. documented in this encounterLancaster [facility] Hospital05-07-2024 Telephone encounter Note * Telephone Encounter [...] Please advise. Thank you. Brigitte Dorsey RN. [facility]11-25-2023 Miscellaneous Notes* Telephone Encounter - Kameron Caruso MD - 04/08/2023 11:04 AM EST OK to refill as ordered Kameron Caruso MD * Telephone Encounter - Carmencita Baker LPN - 04/08/2023 10:57 AM EST Pt calling for refills. Last seen pcp 11/25/22. Next appt with pcp 05/30/23. documented in this encounterLancaster [facility] Hospital07-14-2023 Miscellaneous Notes* Telephone Encounter - Kameron Caruso MD - 11/25/2022 11:58 AM EDT Done Kameron Caruso MD * Telephone Encounter - Jaiden Paulino RN - 11/25/2022 10:43 AM EDT Patient asking pcp if you can cancel the jardiance on her med list, because it shows up on her MyChart, and she does not take it. documented in this encounterLancaster [facility] Hospital01-13-2023 History of Present illness Narrative* Kameron Caruso MD - 05/27/2022 9:40 AM EST Chief Complaint Patient presents with: F/U 6 Month HPI October L Armand is a 76 year old [...] BY MOUTH ONCE DAILY WITH BREAKFAST lancets (Mode DiagnosticsUCH DELICA PLUS LANCET) 30 gauge Test blood [...] Moderate Kameron Caruso MD documented in this encounterLancaster [facility] Hospital11-28-2022 Miscellaneous Notes* Telephone Encounter - Mj Glover APRN.[facility] - 04/11/2022 9:19 AM EST The following [...] Isaac Mendez LPN * Telephone Encounter - [facility] - 04/11/2022 8:49 AM EST Patient has been identified by name and date of : Yes Requested Prescriptions No prescriptions requested or ordered in this encounter RX INSTRUCTIONS: Patient aware RX will be sent to pharmacy. No need to notify patient. [facility] documented in this encounterL[facility] Hospital10-19-2022 Instructions* Patient Instructions* Emma Sotomayor APRN.CNP - 03/02/2022 11:11 AM EDT Start prednisone taper, take with food. May use Tylenol while taking the steroid. May use flexeril 3 times daily as needed for muscle tension. May make you sleepy. You were given Toradol in the office. Apply heat to the area. Follow up if symptoms do not improve. documented in this encounterLancaster Municipal Hospital10-19-2022 History of Present illness Narrative* Emma [...] the legs. Has has not tried any gtvl-avq-plvarhu analgesia, refers that she does not like [...] BY MOUTH ONCE DAILY WITH BREAKFAST lancets (Mode DiagnosticsUCH DELICA PLUS LANCET) 30 gauge Test blood sugars 1 time daily. Dx: Type 2 DM Controlled E11.9. Insulin: no Chlorhexidine Gluconate (PERIDEX) 0.12 % solution Use 15 mL as instructed twice daily. Rinse aroundmouth for 30 seconds then expectorate blood sugar diagnostic (ONETOUCH ULTRA TEST) test [...] APRN.GARRETT This note was partially generated using DistalMotion voice recognition system. Note was reviewed for accuracy. There may be minor misspellings or grammar miscues with DistalMotion voice recognition. documented in this encounterLancaster Municipal Hospital10-19-2022 Miscellaneous Notes* Telephone Encounter - Michelle [...] urine 11. : no Protocols used: Back [id number] documented in this encounterLancaster Municipal Hospital08-30-2022 Miscellaneous Notes* Telephone Encounter - Jumana [...] patient. Aditi Conley Pss documented in this encounterLancaster [facility] Hospital08-30-2022 Miscellaneous Notes* Telephone Encounter - Kameron [...] ONCE DAILY WITH BREAKFAST documented in this encounterLancaster Municipal Hospital08-04-2022 Miscellaneous Notes* Telephone Encounter - Mj [...] request. Brigitte Dorsey RN documented in this encounterLancaster [facility] Hospital07-12-2022 Miscellaneous Notes* Telephone Encounter - Mj [...] to fill Please advise documented in this encounterLancaster [facility] Hospital07-12-2022 History of Present illness Narrative* Kameron Caurso MD - 11/23/2021 9:40 AM EDT Chief Complaint Patient presents with: F/U 6 Month HPI Lindsay Acuna is a 76 year old female who presents here today for a 6 month follow up. Pt here today for a 6 month follow up. Recently back from [facility]. Was told by Natives to not [...] doing much exercise. When she was in [facility] they had to go up [address] [...] mouth daily with breakfast. blood sugar diagnostic (REBIScan ULTRA TEST) test strip Test Blood Sugar [...] kidney disease, unspecified CKD stage, unspecified whether termite exterminator insulin use (HCC) - ICD9: 250.40, 585.9, [...] Past Histories independently gathered by the clinical biomedical equipment support specialist and the remaining scribed note [...] AM. Adenike Walton Ma documented in this encounterLancaster [facility] Hospital06-02-2022 Miscellaneous Notes* Telephone Encounter - Kameron Caruso MD - 10/14/2021 9:34 AM EDT Order filed Kameron Caruso MD * Telephone Encounter - Adenike Walton Ma - 10/14/2021 9:20 AM EDT Pt stopped in the office and is requesting a new meter to be sent into [facility]. Pt uses [employer]. Adenike Walton Ma documented in this encounterLancaster [facility] Hospital05-31-2022 Miscellaneous Notes* Telephone Encounter - Kameron [...] where they were going to go to [facility] they have closed the border there and they are now going to [facility] [place]. [facility]. Please advise if they have to [...] back. Shreya Barrios LPN documented in this encounterLancaster [facility] Hospital05-09-2022 Miscellaneous Notes* Telephone Encounter - Jumana [...] Please call and advise. documented in this encounterLancaster [facility] Hospital06-22-2021 History of Past illness Narrative* Problem Noted Date Resolved Date Hypertensive kidney disease with stage 3 chronic kidney disease 11/03/2020 11/05/2020 Diabetes mellitus with renal complications 05/0111/03/2020 PURE HYPERCHOLESTEROLEM 11/27/19 14 DIABETES MELLITUS TYPE II-UNCOMPL 11/26/2013 documented as of this encounter (statuses as of 09/20/2021) [facility] History of Past illness Narrative* Problem Noted Date Resolved Date Hypertensive kidney disease with stage 3 chronic kidney disease 11/03/2020 11/05/2020 Diabetes mellitus with renal complications 05/0111/03/2020 PURE HYPERCHOLESTEROLEM 11/27/19 14 DIABETES MELLITUS TYPE II-UNCOMPL 11/26/2013 documented as of this encounter (statuses as of 10/12/2021) [facility] of Past illness Narrative* Problem Noted Date Resolved Date Hypertensive kidney disease with stage 3 chronic kidney disease 11/03/2020 11/05/2020 Diabetes mellitus with renal complications 05/0111/03/2020 PURE HYPERCHOLESTEROLEM 11/27/19 14 DIABETES MELLITUS TYPE II-UNCOMPL 11/26/2013 documented as of this encounter (statuses as of 10/14/2021) [facility] of Past illness Narrative* Problem Noted Date Resolved Date Hypertensive kidney disease with stage 3 chronic kidney disease 11/03/2020 11/05/2020 Diabetes mellitus with renal complications 05/0111/03/2020 PURE HYPERCHOLESTEROLEM 11/27/19 14 DIABETES MELLITUS TYPE II-UNCOMPL 11/26/2013 documented as of this encounter (statuses as of 11/23/2021) [facility] of Past illness Narrative* Problem Noted Date Resolved Date Hypertensive kidney disease with stage 3 chronic kidney disease 11/03/2020 11/05/2020 Diabetes mellitus with renal complications 05/0111/03/2020 PURE HYPERCHOLESTEROLEM 11/27/19 14 DIABETES MELLITUS TYPE II-UNCOMPL 11/26/2013 documented as of this encounter (statuses as of 11/23/2021) [facility] of Past illness Narrative* Problem Noted Date Resolved Date Hypertensive kidney disease with stage 3 chronic kidney disease 11/03/2020 11/05/2020 Diabetes mellitus with renal complications 05/0111/03/2020 PURE HYPERCHOLESTEROLEM 11/27/19 14 DIABETES MELLITUS TYPE II-UNCOMPL 11/26/2013 documented as of this encounter (statuses as of 12/16/2021) [facility] of Past [facility] Narrative* Problem Noted Date Resolved Date Hypertensive kidney disease with stage 3 chronic kidney disease 11/03/2020 11/05/2020 Diabetes mellitus with renal complications 05/0111/03/2020 PURE HYPERCHOLESTEROLEM 11/27/19 14 DIABETES MELLITUS TYPE II-UNCOMPL 11/26/2013 documented as of this encounter (statuses as of 01/11/2022) [facility] of [facility] Narrative* Problem Noted Date Resolved Date Hypertensive kidney disease with stage 3 chronic kidney disease 11/03/2020 11/05/2020 Diabetes mellitus with renal complications 05/0111/03/2020 PURE HYPERCHOLESTEROLEM 11/27/19 14 DIABETES MELLITUS TYPE II-UNCOMPL 11/26/2013 documented as of this encounter (statuses as of 01/11/2022) [facility] of [facility] Narrative* Problem Noted Date Resolved Date Hypertensive kidney disease with stage 3 chronic kidney disease 11/03/2020 11/05/2020 Diabetes mellitus with renal complications 05/0111/03/2020 PURE HYPERCHOLESTEROLEM 11/27/19 14 DIABETES MELLITUS TYPE II-UNCOMPL 11/26/2013 documented as of this encounter (statuses as of 03/02/2022) [facility] of [facility] Narrative* Problem Noted Date Resolved Date Hypertensive kidney disease with stage 3 chronic kidney disease 11/03/2020 11/05/2020 Diabetes mellitus with renal complications 05/0111/03/2020 PURE HYPERCHOLESTEROLEM 11/27/19 14 DIABETES MELLITUS TYPE II-UNCOMPL 11/26/2013 documented as of this encounter (statuses as of 03/02/2022) [facility] of [facility] Narrative* Problem Noted Date Resolved Date Hypertensive kidney disease with stage 3 chronic kidney disease 11/03/2020 11/05/2020 Diabetes mellitus with renal complications 05/0111/03/2020 PURE HYPERCHOLESTEROLEM 11/27/19 14 DIABETES MELLITUS TYPE II-UNCOMPL 11/26/2013 documented as of this encounter (statuses as of 04/11/2022) [facility] of [facility] Narrative* Problem Noted Date Resolved Date Hypertensive kidney disease with stage 3 chronic kidney disease 11/03/2020 11/05/2020 Diabetes mellitus with renal complications 05/0111/03/2020 PURE HYPERCHOLESTEROLEM 11/27/19 14 DIABETES MELLITUS TYPE II-UNCOMPL 11/26/2013 documented as of this encounter (statuses as of 05/27/2022) [facility] of [facility] illness Narrative* Problem Noted Date Diagnosed Date Resolved Date Hypertensive kidney disease with stage 3 chronic kidney disease 11/03/2020 11/05/2020 Diabetes mellitus with renal complications 05/01/2014 11/03/2020 PURE HYPERCHOLESTEROLEM 07/09/2013 DIABETES MELLITUS TYPE II-UNCOMPL 11/26/2013 documented as of this encounter (statuses as of 11/25/2022) [facility] of [facility] Narrative* Problem Noted Date Diagnosed Date Resolved Date Hypertensive kidney disease with stage 3 chronic kidney disease 11/03/2020 11/05/2020 Diabetes mellitus with renal complications 05/01/2014 11/03/2020 PURE HYPERCHOLESTEROLEM 11/12 DIABETES MELLITUS TYPE II-UNCOMPL 11/26/2013 documented as of this encounter (statuses as of 04/08/2023) [facility] of Past illness Narrative* Problem Noted Date Diagnosed Date Resolved Date Hypertensive kidney disease with stage 3 chronic kidney disease 11/03/2020 11/05/2020 Diabetes mellitus with renal complications 05/01/2014 11/03/2020 PURE HYPERCHOLESTEROLEM 11/12 DIABETES MELLITUS TYPE II-UNCOMPL 11/26/2013 documented as of this encounter (statuses as of 04/08/2023) [facility] HospitalDis[facility] summary Author Pieter Morgan [facility] Note Date/Time August 02, 2024 1:1 6pm [facility] Medical Records Department [address] [place] [address] Emergency Department Summary 08/02/24 MR#: [id number] Acct: [id number] Name: LINDSAY ACUNA Rep #:[id number] : [id number] From: Peiter Morgan MD PCP: Dr. Kameron Caruso MD [...] the EMR. states they returned home from [facility] about 1.5-2 weeks ago, and they both had colds. He is better, but she is "on round 2." [facility] Medical History Paroxysmal atrial fibrillation with RVR [...] 71.4 H Lymph % (Auto) 17.9 L [place] % (Auto) 8.9 Eos % (Auto) 1.0 [...] on 08/02/2024 at 1250 hours. Reading Location: [facility] Head/Neck CTA 08/02/24 12:24 IMPRESSION: RIGHT CAROTID: Mild degree of calcific plaque at the origin of the right internal carotid artery. LEFT CAROTID: Mild degree of calcific plaque at the origin of the left internal carotid artery. VERTEBRALS: Dominant left vertebral artery INTRACRANIAL: Unremarkable Other impression: No significant stenosis seen. Reading Location: [place] [address] Rhythm Strip Rhythm Strip: A-fib Rate: 90 Ectopy: None EKG Initial EKG: Attestation: I personally reviewed and interpreted this EKG as follows: Interpretation: No Acute Injury Pattern, Atrial Fibrillation and Non-Specific ST Changes Management Discussion w/another healthcare provider: Heat Treater Helper ([facility] stroke neurology) and Radiologist Stroke Documentation [...] min), Including time spent:, Discussing w/Patient &/or Family/Pan[place] Hat Hydraulic Press Operator, Discussing w/Consultants, Arranging Admission or Transfer and [...] MD [Primary Care Provider] - Print Language: Chadian Disposition Disposition: Acute Care Hospital Discharge Location: [facility] What to do if you have Problems For any increased pain, shortness of breath, bleeding, nausea or vomiting, chestpain, or any unexpected problems, contact your Primary Care Provider. Call [facility] ([phone]) or report to the closest Emergency Room. Call 911 if necessary. 08/02/24 1316 <Electronically signed by Pieter Morgan MD> Cosigner Signature (if applicable): CC: Dr. Kameron Caruso MD ~ Signed [facility] Work Phone: Evaluation note* Diagnosis Need for vaccination- Primary Need for prophylactic vaccination and inoculation against unspecified single disease documented [facility] this encounter [facility]* Diagnosis Type 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, unspecified CKD stage, unspecified whether intermediate insulin use (HCC)- Primary Essential hypertension, benign Hyperlipidemia, unspecified hyperlipidemia type Stage 3b chronic kidney disease (HCC) Hypothyroidism, unspecified type Memory loss documented in this encounter [facility]* Diagnosis Type 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, unspecified CKD stage, unspecified whether intermediate insulin use (HCC)- Primary documented in this encounter [facility] note* Diagnosis Hyperlipidemia, unspecified hyperlipidemia type Essential hypertension, benign Type 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, unspecified CKD stage, unspecified whether termite exterminator insulin use (HCC) [facility]* Diagnosis Type 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, unspecified CKD stage, unspecified whether termite exterminator insulin use (HCC) Essential hypertension, benign Hyperlipidemia, unspecified hyperlipidemia type documented in this encounter [facility] note* Diagnosis Acute midline low back pain without sciatica- Primary [facility]* Diagnosis Type 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, unspecified CKD stage, unspecified whether termite exterminator insulin use (HCC)- Primary documented in this encounter [facility] note* Diagnosis Essential hypertension, benign- Primary Hypothyroidism, unspecified type Type 2 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, without long-term current use of insulin (HCC) Hyperlipidemia, unspecified hyperlipidemia type Chronic kidney disease, stage 3a (HCC) Edema of left lower leg Wellness examination documented in this encounter [facility] note* Diagnosis Type 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, unspecified CKD stage, unspecified whether termite exterminator insulin use (HCC) documented in this encounter [facility] note* Diagnosis Allergic contact dermatitis due to plant- Primary Contact dermatitis and other eczema due to plants (except food) documented in this encounter [facility] note* Diagnosis Rash- Primary Rash and other nonspecific skin eruption documented in this encounter [facility] note* Diagnosis Type 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, unspecified CKD stage, unspecified whether intermediate insulin use (HCC)- Primary Essential hypertension, benign Chronic kidney disease, stage 3a (HCC) Hyperlipidemia, unspecified hyperlipidemia type Hypothyroidism, unspecified type Edema of left lower leg Memory loss documented in this encounter [facility] note* Diagnosis Essential hypertension, benign- Primary Type 2 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, without long-term current use of insulin (HCC) Chronic kidney disease, stage 3a (HCC) Hyperlipidemia, unspecified hyperlipidemia type Hypothyroidism, unspecified type Edema of left lower leg Memory loss Urinary incontinence, unspecified type Irregular heart beat Cardiac dysrhythmia, unspecified Atrial fibrillation, unspecified type (HCC) documented in this encounter [facility] note* Diagnosis Atrial fibrillation, unspecified type (HCC)- Primary Hypothyroidism, unspecified type Need for malaria prophylaxis documented in this encounter [facility] note* Diagnosis History of traveler's diarrhea- Primary Personal history of other diseases of digestive system documented in this encounter [facility] note* Diagnosis History of traveler's diarrhea Personal history of other diseases of digestive system [facility] noteNo assessment information availableWBlanch[facility] Work Phone: Evaluation note* Diagnosis Acute ischemic right MCA stroke- Primary Unspecified cerebral artery occlusion with cerebral infarction Cerebrovascular accident (CVA), unspecified mechanism Renal disease (High Serum Creatinine) Unspecified disorder of kidney and ureter Type 2 diabetes mellitus with hyperglycemia Type II or unspecified type diabetes mellitus without mention of complication, not stated as uncontrolled [facility] N[facility]ative No data available for this section Tyler Tariqwn Reason for referral (narrative)* Outpatient Procedure (Routine) - Pending Review Specialty Diagnoses / Procedures Referred By Contac t Referred To Contact [facility] Diagnoses Atrial fibrillation, unspecified type (HCC) Procedures ECHO ECHO TTHRC R-T 2D W/WOM-MODE COMPL SPEC&COLR D Kameron Caruso MD [address] [place] [address] [facility] [address] [address] Referral ID Status Reason Start Date Expiration Date Visits Requested Visits Authorized [id number] Pending Review Auto-Generat ed Referral 05/31/2024 05/31/2025 1 1 * Outpatient Procedure (Routine) - New Request Specialty Diagnoses / Procedures Referred By Contac t Referred To Contact [facility] Diagnoses Irregular heart beat Procedures ECG COMPLETE ECG ROUTINE ECG W/LEAST 12 LDS W/I&R Kameron Caruso MD [address] [place] [address] [id number] [place] [address] Referral ID Status Reason Start Date Expiration Date Visits Requested Visits Authorized [id number] New Request Auto-Generat ed Referral 05/31/2024 05/31/2025 1 1 [facility]No reason for referral information availableWBlanch[facility] Work Phone: Reason for visit Narrative* Auth/Cert Specialty Diagnoses / Procedures Referred By Contac t Referred To Contact Diagnoses Acute ischemic right MCA stroke Cerebrovascular Accident (Level A Ishemic Stroke) Prema Rodgers MD [address] [place] [address] Phone: tel: fax: [facility] [address] [place] [address] Referral ID Status Reason Start Date Expiration Date Visits Re quested Visits Authorized [id number] 1 1 [facility] Summary Purpose Family History No Family History Records Found Relationship Condition Age at Onset Recorded Date/T monse mother Diabetes mellitus Unknown Hypertension Unknown Psychiatric disorder Unknown grandmother Malignant neoplasm Unknown sister Disorder of thyroid Unknown Advance Directives No Advanced Directives Records FoundDocuments on File Type Date Recorded Patient Letter Of Credit Clerk 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 Advance Directives and Living Will Power of Measuring Machine Tender Latest Code Status on File Code Status Date Activated Date Inactivated Comments Full Code 01/09/2019 10:16 AM Latest Code Status on File Code Status Date Activated Date Inactivated Comments Full Code 10/16/2019 9:16 AM Full Code 01/09/2019 10:16 AM 01/09/2019 2:23 PM Documents on File Type Date Recorded Patient Letter Of Credit Clerk 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 Advance Directive(s) 11/07/2018 6:45 AM Advance Directive(s) 09/29/2015 10:09 PM Advance Directive Response Recorded Date/ Time Living Will No August 02, 2024 12:46pm Do you have a Healthcare Power of Measuring Machine Tender? No August 02, 2024 12:46pm Date Activated [...] patient had a polyp identified by on {time:20221}. Biopsies {are/were w not:9034} taken. The patient's usual bowel pattern is {bowel pattern:63470}. Bowel movements {bowel changes:79212} . {abd pain:99965}. The patient has noted{bleeding with BM:63594}. The patient {does/do/not:31402} have a family history of colon polyps. The patient {does/do/not:11680} have a family history of colon cancer. [...] WORK September 10, 2024 5:0 0am [facility] October 02, 2024 9:29a m Additional Source Comments INFORMATION SOURCE (unrecogn ized section and content) DATE CREATED AUTHOR 08/31/2018 [facility] ([place]) DATE CREATED AUTHOR AUTHOR'S ORGANIZ ATION 10/18/2019 [facility] DATE CREATED AUTHOR AUTHOR'S ORGANIZ ATION 08/04/2024 [facility] DATE CREATED AUTHOR AUTHOR'S ORGANIZ ATION 08/07/2024 [facility] DATE CREATED AUTHOR AUTHOR'S ORGANIZ ATION 08/24/2024 [facility] DATE CREATED AUTHOR AUTHOR'S ORGANIZ ATION 09/01/2024 [facility] DATE CREATED AUTHOR AUTHOR'S ORGANIZ ATION 10/13/2024 [facility] DATE CREATED AUTHOR AUTHOR'S ORGANIZ ATION 10/17/2024 [facility] Source Comments (unrecognize d section and content) In the event this informatio n is protected by the Federal Confidentiality of Alcohol and Drug Abuse Patient Records regulations: The Federal rules restrict any use of the information to criminally investigate or prosecute any alcohol or drug abuse patient.[facility] the event this information is protected by the Federal Confidentiality of Alcohol and Drug Abuse Patient Records regulations: The Federal rules restrict any use of the information to criminally investigate or prosecute any alcohol or drug abuse patient.[facility]In the event this information is protected by the Federal Confidentiality of Alcohol and Drug Abuse Patient Records regulations: The Federal rules restrict any use of the information to criminally investigate or prosecute any alcohol or drug abuse patient.[facility]In the event this information is protected by the Federal Confidentiality of Alcohol and Drug Abuse Patient Records regulations: The Federal rules restrict any use of the information to criminally investigate or prosecute any alcohol or drug abuse patient.[facility] the event this information is protected by the Federal Confidentiality of Alcohol and Drug Abuse Patient Records regulations: The Federal rules restrict any use of the information to criminally investigate or prosecute any alcohol or drug abuse patient.[facility] HospitalIn the event this information is protected by the Federal Confidentiality of Alcohol and Drug Abuse Patient Records regulations: The Federal rules restrict any use of the information to criminally investigate or prosecute any alcohol or drug abuse patient.[facility] the event this information is protected by the Federal Confidentiality of Alcohol and Drug Abuse Patient Records regulations: The Federal rules restrict any use of the information to criminally investigate or prosecute any alcohol or drug abuse patient.[facility] the event this information is protected by the Federal Confidentiality of Alcohol and Drug Abuse Patient Records regulations: The Federal rules restrict any use of the information to criminally investigate or prosecute any alcohol or drug abuse patient.[facility] HospitalIn the event this information is protected by the Federal Confidentiality of Alcohol and Drug Abuse Patient Records regulations: The Federal rules restrict any use of the information to criminally investigate or prosecute any alcohol or drug abuse patient.[facility]In the event this information is protected by the Federal Confidentiality of Alcohol and Drug Abuse Patient Records regulations: The Federal rules restrict any use of the information to criminally investigate or prosecute any alcohol or drug abuse patient.[facility] HospitalIn the event this information is protected by the Federal Confidentiality of Alcohol and Drug Abuse Patient Records regulations: The Federal rules restrict any use of the information to criminally investigate or prosecute any alcohol or drug abuse patient.[facility] HospitalIn the event this information is protected by the Federal Confidentiality of Alcohol and Drug Abuse Patient Records regulations: The Federal rules restrict any use of the information to criminally investigate or prosecute any alcohol or drug abuse patient.[facility] HospitalIn the event this information is protected by the Federal Confidentiality of Alcohol and Drug Abuse Patient Records regulations: The Federal rules restrict any use of the information to criminally investigate or prosecute any alcohol or drug abuse patient.[facility] HospitalIn the event this information is protected by the Federal Confidentiality of Alcohol and Drug Abuse Patient Records regulations: The Federal rules restrict any use of the information to criminally investigate or prosecute any alcohol or drug abuse patient.[facility] HospitalIn the event this information is protected by the Federal Confidentiality of Alcohol and Drug Abuse Patient Records regulations: The Federal rules restrict any use of the information to criminally investigate or prosecute any alcohol or drug abuse patient.[facility] HospitalIn the event this information is protected by the Federal Confidentiality of Alcohol and Drug Abuse Patient Records regulations: The Federal rules restrict any use of the information to criminally investigate or prosecute any alcohol or drug abuse patient.[facility]In the event this information is protected by the Federal Confidentiality of Alcohol and Drug Abuse Patient Records regulations: The Federal rules restrict any use of the information to criminally investigate or prosecute any alcohol or drug abuse patient.[facility] HospitalIn the event this information is protected by the Federal Confidentiality of Alcohol and Drug Abuse Patient Records regulations: The Federal rules restrict any use of the information to criminally investigate or prosecute any alcohol or drug abuse patient.[facility] HospitalIn the event this information is protected by the Federal Confidentiality of Alcohol and Drug Abuse Patient Records regulations: The Federal rules restrict any use of the information to criminally investigate or prosecute any alcohol or drug abuse patient.[facility] HospitalIn the event this information is protected by the Federal Confidentiality of Alcohol and Drug Abuse Patient Records regulations: The Federal rules restrict any use of the information to criminally investigate or prosecute any alcohol or drug abuse patient.[facility] HospitalIn the event this information is protected by the Federal Confidentiality of Alcohol and Drug Abuse Patient Records regulations: The Federal rules restrict any use of the information to criminally investigate or prosecute any alcohol or drug abuse patient.[facility] HospitalIn the event this information is protected by the Federal Confidentiality of Alcohol and Drug Abuse Patient Records regulations: The Federal rules restrict any use of the information to criminally investigate or prosecute any alcohol or drug abuse patient.[facility] HospitalIn the event this information is protected by the Federal Confidentiality of Alcohol and Drug Abuse Patient Records regulations: The Federal rules restrict any use of the information to criminally investigate or prosecute any alcohol or drug abuse patient.[facility] HospitalIn the event this information is protected by the Federal Confidentiality of Alcohol and Drug Abuse Patient Records regulations: The Federal rules restrict any use of the information to criminally investigate or prosecute any alcohol or drug abuse patient.[facility] HospitalIn the event this information is protected by the Federal Confidentiality of Alcohol and Drug Abuse Patient Records regulations: The Federal rules restrict any use of the information to criminally investigate or prosecute any alcohol or drug abuse patient.[facility] HospitalIn the event this information is protected by the Federal Confidentiality of Alcohol and Drug Abuse Patient Records regulations: The Federal rules restrict any use of the information to criminally investigate or prosecute any alcohol or drug abuse patient.[facility] HospitalIn the event this information is protected by the Federal Confidentiality of Alcohol and Drug Abuse Patient Records regulations: The Federal rules restrict any use of the information to criminally investigate or prosecute any alcohol or drug abuse patient.[facility] HospitalIn the event this information is protected by the Federal Confidentiality of Alcohol and Drug Abuse Patient Records regulations: The Federal rules restrict any use of the information to criminally investigate or prosecute any alcohol or drug abuse patient.[facility] Reason for Visit (unrecogniz ed section [...] Comments request for medication Reason Comments Tyler [facility] requesting verbal agree to f [facility] Care Teams (unrecognized sec tion and content) News Operations Manager Relationship Specialty Start Date End Date Kameron Caruso MD [address] [place] [address] PCP - General Family Practice 09/21/15 News Operations Manager Relationship Specialty Start Date End Date Kameron Caruso MD [address] [place] [address] PCP - General Family Practice 09/21/15 News Operations Manager Relationship Specialty Start Date End Date Kameron Caruso MD [address] [place] [address] PCP - General Family Practice 09/21/15 News Operations Manager Relationship Specialty Start Date End Date Kameron Caruso MD [address] [place] [address] PCP - General Family Practice 09/21/15 News Operations Manager Relationship Specialty Start Date End Date Kameron Caruso MD [address] [place] [address] PCP - General Family Practice 09/21/15 News Operations Manager Relationship Specialty Start Date End Date Kameron Caruso MD [address] [place] [address] PCP - General Family Practice 09/21/15 News Operations Manager Relationship Specialty Start Date End Date Kameron Caruso MD [address] [place] [address] PCP - General Family Medicine 09/21/15 News Operations Manager Relationship Specialty Start Date End Date Kameron Caruso MD [address] [place] [address] PCP - General Family Medicine 09/21/15 News Operations Manager Relationship Specialty Start Date End Date Kameron Caruso MD [address] [place] [address] PCP - General Family Medicine 09/21/15 News Operations Manager Relationship Specialty Start Date End Date Kameron Caruso MD [address] [place] [address] PCP - General Family Medicine 09/21/15 News Operations Manager Relationship Specialty Start Date End Date Kameron Caruso MD [address] [place] [address] PCP - General Family Medicine 09/21/15 News Operations Manager Relationship Specialty Start Date End Date Kameron Caruso MD [address] [place] [address] PCP - General Family Medicine 09/21/15 News Operations Manager Relationship Specialty Start Date End Date Kameron Caruso MD [address] [place] [address] PCP - General Family Medicine 09/21/15 News Operations Manager Relationship Specialty Start Date End Date Kameron Caruso MD [address] [place] [address] PCP - General Family Medicine 09/21/15 News Operations Manager Relationship Specialty Start Date End Date Kameron Caruso MD [address] [place] [address] PCP - General Family Medicine 09/21/15 News Operations Manager Relationship Specialty Start Date End Date Kameron Caruso MD [address] [place] [address] PCP - General Family Medicine 09/21/15 Emma Sotomayor, PROSTHETIC DENTIST.ALUMINUM BOAT INSPECTOR [address] [place] [address] Layout Designer Family Medicine 04/21/24 Mj Glover APRN.ALUMINUM BOAT INSPECTOR [address] [place] [address] Layout Designer Family Medicine 04/30/24 News Operations Manager Relationship Specialty Start Date End Date Kameron Caruso MD [address] [place] [address] PCP - General Family Medicine 09/21/15 Emma Sotomayor, PROSTHETIC DENTIST.ALUMINUM BOAT INSPECTOR [address] [place] [address] Layout Designer Family Medicine 04/21/24 Mj Glover APRN.ALUMINUM BOAT INSPECTOR [address] [place] [address] Layout Designer Family Medicine 04/30/24 News Operations Manager Relationship Specialty Start Date End Date Kameron Caruso MD [address] [place] [address] PCP - General Family Medicine 09/21/15 Emma Sotomayor APRN.ALUMINUM BOAT INSPECTOR [address] [place] [address] Layout Designer Family Medicine 04/21/24 Mj Glover APRN.ALUMINUM BOAT INSPECTOR [address] [place] [address] Layout Designer Family Medicine 04/30/24 News Operations Manager Relationship Specialty Start Date End Date Kameron Caruso MD [address] [place] [address] PCP - General Family Medicine 09/21/15 Emma Sotomayor APRN.ALUMINUM BOAT INSPECTOR [address] [place] [address] Layout Designer Family Medicine 04/21/24 Mj Glover APRN.ALUMINUM BOAT INSPECTOR [address] [place] [address] Layout Designer Family Medicine 04/30/24 News Operations Manager Relationship Specialty Start Date End Date Kameron Caruso MD [address] [place] [address] PCP - General Family Medicine 09/21/15 Emma Sotomayor APRN.ALUMINUM BOAT INSPECTOR [address] [place] [address] Layout Designer Family [facility] 04/21/24 Mj Glover APRN.ALUMINUM BOAT INSPECTOR [address] [place] [address] Layout Designer [facility] 04/30/24 News Operations Manager Relationship Specialty Start Date End Date Kameron Caruso MD [address] [place] [address] PCP - General Family Medicine 09/21/15 Emma Sotomayor APRN.ALUMINUM BOAT INSPECTOR [address] [place] [address] Layout Designer Family Medicine 04/21/24 Mj Glover APRN.ALUMINUM BOAT INSPECTOR [address] [place] [address] [facility] 04/30/24 News Operations Manager Relationship Specialty Start Date End Date Kameron Caruso MD [address] [place] [address] PCP - General Family Medicine 09/21/15 Emma Sotomayor APRN.ALUMINUM BOAT INSPECTOR [address] [place] [address] Layout Designer Family Medicine 04/21/24 Mj Glover APRN.ALUMINUM BOAT INSPECTOR [address] [place] [address] Layout Designer [facility] 04/30/24 Team Status: Active Member Role Status Dates Dr. Kameron Caruso MD Primary Care Provider Active Team Status: Inactive Member Role Status Dates Dr. Kameron Caruso MD Primary Care Provider Active Start: August 02, 2024 End: August 02, 2024 Dr. Pieter Morgan MD Emergency Provider Active Start: August 02, 2024 End: August 02, 2024 News Operations Manager Relationship Specialty Start Date End Date Kameron Caruso MD [address] [place] [address] PCP - General Family Medicine 08/03/24 News Operations Manager Relationship Specialty Start Date End Date Kameron Caruso MD [address] [facility] [place] [address] PCP - General Family Medicine 09/21/15 Emma Sotomayor, PROSTHETIC DENTIST.ALUMINUM BOAT INSPECTOR [address] [facility] [place] [address] Layout Designer Family Medicine 04/21/24 Mj Glover PROSTHETIC DENTIST.ALUMINUM BOAT INSPECTOR [address] [facility] [place] [address] Layout Designer Family Medicine 04/30/24 Team Status: Inactive Member [...] anticoagulants (e.g. enoxaparin, heparin)., Indications: Atrial Fibrillation 0904 (Given - Provider: Shanna Palmer RN) apixaban (ELIQUIS) tablet 5 mg 5 mg, PEG Tube, EVERY 12 HOURS, First dose (after last modification) on Mon08/13/24 at 2100, Until Discontinued, Due to the rapid onset of action of apixaban, no overlap is needed with other anticoagulants (e.g. enoxaparin, heparin)., Indications: Atrial Fibrillation 1946 (Given - Provider: Shaila Eng RN) 0849 (Given - Provider: Eneida Cespedes RN)2041 (Given [...] when needed. 0007 (Given - Provider: Katia Parekh RN)0507 (Given - Provider: Katia Parekh RN)1139 (Given [...] DAILY, First dose (after last modification) on Mon08/10/24 at 0900, Until Discontinued 903 (Given - Provider: Shanna Palmer RN) 08 (Given - Provider: Eneida Cespedes RN) 08 (Given - Provider: Robson Steel RN) Melatonin [...] RN)1946 (Given - Provider: Shaila Eng RN) 848 (Given - Provider: Eneida Cespedes RN)2040 (Given - Provider: Shanna Catalan RN) 08 (Given - Provider: Robson Steel RN) Polyethylene glycol (MIRALAX) packet 17 g(Linked Group 2) 17 g, PEG Tube, EVERY 12 HOURS, First dose (after last modification) on Mon08/09/24 at 2100, Until Discontinued 904 (Not Given - Provider: Shanna Palmer RN - Reason: Patient with symptoms)1920 (Not Given - Provider: Shaila Eng RN - Reason: Contraindicated - Comment: Pt having frequent loose stools) 851 (Not Given - Provider: Eneida Cespedes RN [...] Hold if BM in last 2 hours. 904 (Not Given - Provider: Shanna Palmer RN - Reason: Patient with symptoms)1921 (Not Given - Provider: Shaila Eng RN - Reason: Contraindicated - Comment: pt having frequent loose stools) 0853 (Not Given - Provider: Eneida Cespedes RN - Reason: Patient with symptoms)2041 (Not Given - Provider: Shanna Catalan RN - Reason: Patient with symptoms) 0806 (Not Given - Provider: Robson Steel RN [...] Shanna Palmer RN)2129 (Given - Provider: Shaila Eng, RN) 0113 (Given - Provider: Shaila Eng, ZOE)0533 (Given - Provider: Shaila Eng RN) Water liquid (free water) 150 mL 150 mL, PEG Tube, EVERY 6 HOURS, First dose (after last modification) on Mon08/14/24 at 1200, Until Discontinued, For tube patency. 1222 (Given - Provider: Eneida Cespedes RN)1757 (Given - Provider: Eneida Cespedes RN) 0019 (Given - Provider: Shanna Catalan, ZOE)0606 (Given - Provider: Shanna Catalan RN)1200 (Canceled [...] Parekh RN)0800 (Hold Feeding/Supplement - Provider: Shanna Palmer RN - Reason: Hold Feed Temporarily (Medication [...] Provider: Shanna Catalan RN)0806 (Hold - Provider: Robson Steel RN - Reason: Other - Comment: [...] 10 mg, Rectal, DAILY NEEDED, Starting on Mon08/05/24 at 0728, Until Diane 08/15/24 at 1259, [...] 50% needed, contact pharmacy or obtain from [facility] cart ++ diphenhydrAMINE (BENADRYL) tablet 25 mg [...] glucose is greater than 200mg/dl, then notify house wrecker. And BLOOD GLUCOSE (POC DEVICE) (CANCELED) Routine, [...] 1-2 Tube, Oral, ADMINISTER DIRECTED, Starting on Mon08/03/24 at 1300, Until Diane 08/15/24 at 1259, [...] at 1301, Until Specified, Who to Notify: School Transportation Director, For all Blood Glucose LESS THAN 80 mg/dl, notify School Transportation Director after treatment per Hypoglycemia in Non- Adults [...] BE BASED ON THE PRIMARY CLINICAL RECORDS. [facility] provides no warranty or guarantee of the accuracy or completeness of information in this document.
[2024-10-22 07:49] LABS: Absolute Lymphocyte Count 3.07 X10^3/uL (0.83-4.51); Absolute Neutrophil Count 4.6 X10^3/uL (2.0-7.7); Basophil# 0.08 X10^3/uL; Basophil% 0.9 % (0-1); Eosinophil# 0.27 X10^3/uL; Eosinophils% 3.1 % (0-5); Hematocrit 40.7 % (37-47); Hemoglobin 13.1 g/dL (12.0-15.0); Lymphocyte # 3.07 X10^3/ul (0.83-4.51); Lymphocyte % 34.8 % (19-41); Mean Corp Hgb Conc 32.2 g/dL (32-36); Mean Corpuscular Hgb 29.6 pg (27.0-32.0); Mean Corpuscular Volume 91.9 fL (81-99); Mean Platelet Vol. 11.2 fl (6.2-12.0); Monocyte# 0.68 X10^3/uL; Monocyte% 7.7 % (0-10); NRBC Flagged by Analyzer 0 % (0-5); Neutrophil # 4.61 X10^3/uL (2.7-7.7); Neutrophil % 52.1 % (47-70); Platelet Count 334 K/mm3 (150-450); RBC Distribution Width CV 13.6 % (11.6-14.6); RBC Distribution Width SD 45.9 fl (35.1-43.9); Red Blood Count 4.43 M/mm3 (4.2-5.4); White Blood Count 8.8 K/mm3 (4.4-11.0)
[2024-10-22 08:07] LABS: Anion Gap 15 (5-15); BUN 28 mg/dL (4-19); BUN/Creat Ratio 28.6 RATIO (10-20); Calcium,Total 9.4 mg/dL (7.6-11.0); Carbon Dioxide 23.1 mmol/L (21.0-32.0); Chloride 100 mmol/L (98-108); Creatinine, Serum 0.96 mg/dL (0.70-1.20); EST Glomerular Filtration Rate 60 (>60); Glucose 106 mg/dL (70-99); Potassium 3.7 mmol/L (3.3-5.1); Sodium Level 138 mmol/L (133-145)
== END ==
LOC: OLS.WHLTCC 05:00
PROVIDERS: PCP Family Medicine; Visit Provider Internal Medicine
DX: I10 Essential (primary) hypertension (principal); I69.354 Hemiplegia and hemiparesis following cerebral infarction affecting left non-dominant side; I69.391 Dysphagia following cerebral infarction; E11.9 Type 2 diabetes mellitus without complications; E03.9 Hypothyroidism, unspecified
CPT/HCPCS: 36415; 80048; 84443; 85025

== ENCOUNTER → 2024-10-23 05:00 | Outpatient (REF) | payer MEDICARE, SELFPAY ==
[2024-10-23 13:39] LABS: Color, Urine Yellow (Yellow); Glucose, Dipstick Normal (Normal); Ketone-Dipstick Negative (Negative); Leukocyte Esterase-Dipstick 500 /ul (Negative); Nitrite-Dipstick Positive (Negative); Occult Blood-Urine 10 /ul (Negative); Protein-Dipstick 15 mg/dl (Negative); Urine Bilirubin Dipstick Negative (Negative); Urine Clarity Clear (Clear); Urine Urobilinogen Normal (Normal)
== END ==
LOC: OLS.WHLTCC 05:00
PROVIDERS: PCP Family Medicine; Visit Provider Internal Medicine
DX: R82.90 Unspecified abnormal findings in urine (principal)
CPT/HCPCS: 81002; 87077; 87086; 87088; 87186

== ENCOUNTER → 2024-10-29 | Outpatient (REF) | payer MEDICARE, SELFPAY ==
--- OUTSIDE RECORDS SUMMARY | 2024-10-29 04:43 | XMS RPT_ITS | CCD ---
Author Organization [facility] Care Team Providers Care Weight Yardage Checker Name Role Phone KETTY DOWNS Attending Unavailable PHYSICIAN, NONE Primary Care Unavailable KETTY DOWNS Attending Unavailable PHYSICIAN, NONE Primary Care Unavailable KETTY DOWNS Admitting Unavailable RICHARD PRIEST Consulting Unavailable KETTY DOWNS Attending Unavailable PHYSICIAN, NONE Primary Care Unavailable Kameron Caruso Primary Care Provider Kaemron Caruso Primary Care Provider Kameron Caruso MD Primary Care Provider Kameron Caruso MD Primary Care Provider Kameron Caruso MD Primary Care Provider Kameron Caruso MD Primary Care Provider Kameron Caruso MD Primary Care Provider Светлана DIRECTOR PRISON.Emma TUCKER Unavailable Saurav DIRECTOR PRISON.Mj TUCKER Unavailable JUVENTINO ROGERS Attending Unavailable JUVENTINO ROGERS Admitting Unavailable CATA ALFRED Attending Unavailable CATA ALFRED Admitting Unavailable Dr. Kameron Caruso MD Primary Care Provider [phone] Dr. Pieter Morgan MD Emergency Provider Kameron Caruso MD Primary Care Provider CHRISTOS VOSS Attending Unavailable CONSULT, GASTROENTEROLOGY Consulting PIETER Wolf Referring Unavailable PREMA RAMOS Admitting Unavailable KAMERON CARUSO Primary Care Unavailable BITTAR, RCIHARD Referring Unavailable MADONNA, LUCINDA S Attending Unavailable MADONNA, LUCINDA S Admitting Unavailable Tannhof JASIEL.Emma TUCKER Unavailable Unavail able KAMERON CARUSO Referring [...] LEO LAWSON, DR MELO Primary Care Physician [phone] Cathy LAWSON, Dr. Stapleton Attending Provider Safia Ruelas MD Attending Provider UnavailDr. Kameron Marquez MD Referring Provider [phone] Makayla LAWSON, Dr. Barker Attending Provider DR KAMERON CARUSO MD Primary Care Unavailab SILVINO Monzon DO Admitting Unavailable SILVINO HA DO Attending Unavailable BRYON LAWSON, DR REECE Consulting Unavailab NANDO Lofton DO Consulting Unavailable SUDARSHAN WEATHERS-ORGANIC SECTION TECHNICAL LEAD, AMI Hwang Consulting Unavailrobb GIBSON PhD, MATTHEW Zamudio Consulting Unavailable Enricoe OLS, Efewongbe Attending Unavailabl Kameron Jolley Primary Care Unavailable Pieter Morgan Attending Unavailable Kameron Caruso Primary Care Unavailable Oleghe OLS, Efewongbe Attending Unavailabl e ElderbroKameron newman Primary Care Unavailable Kameron Caruso Primary Care Unavailable Olebonie OLS, Efewongbe Attending Unavailabl e Kameron Caruso Primary Care Unavailable Oleghe OLS, Efewongbe Attending Unavailabl e ElderbroKameron newman Primary Care Unavailable Oleghe OLS, Efewongbe Attending Unavailabl e ElderbroKameron newman Primary Care Unavailable Oleghe OLS, Efewongbe Attending Unavailabl e Oleghe OLS, Efewongbe Referring Unavailabl e Kameron Caruso Primary Care Unavailable Oleghe OLS, Efewongbe Attending Unavailabl e Elderbrock, Kameron Primary Care Unavailable Bret Snyder NP Attending Unavailable Kameron Caruso Primary Care Unavailable Mj Benavides Attending Unavailable Kameron Caruso Referring Unavailable Kameron Caruso Primary Care Unavailable Safia Ruelas Attending Unavailable Kameron Caruso Primary Care Unavailable Jessenia SAM, Efewongbe Attending Unavailabl melanie Caruso, Kameron Primary Care Unavailable Oleghe OLS, Efewongbe Attending Unavailabl e Allergies Allergy Classification Reported Allergen(s) Allergy Type Date of Onset Reaction(s) Facility (2 sources) Sulfonamides (Antibiotic) Propensity to adverse reactions to drug 6 Other (See Comments) [place] (2 sources) Other Propensity to adverse reactions 6 Shortness Of Breath [place] (20 sources) Benzocaine; Translations: [BENZOCAINE] Drug Allergy 6 Rash [facility] Work Phone: (20 sources) Cocaine; Translations: [COCAINE] Drug Allergy 9 Inverted T waves [facility] Work Phone: (20 sources) Sulfonamides (Antibiotic); Translations: [SULFA (SULFONAMIDE ANTIBIOTICS)] Propensity to adverse reactions 6 Intolerance [facility] Work Phone: (20 sources) Perfumes; Translations: [PERFUMES] Propensity to adverse reactions 6 Shortness of Breath [facility] Work Phone: (2 sources) Sulfonamides (Antibiotic) Allergy to substance 5 Unknown [facility] (4 sources) perfume; Translations: [perfume] Allergy to substance 5 Shortness of breath [facility] (1 source) Cocaine; Translations: [cocaine nasal] Drug Allergy [facility] (1 source) Codeine; Translations: [codeine] Drug Allergy Pharyngeal swelling (finding) [facility] (1 source) Sulfonamide; Translations: [sulfa drugs] Drug allergy [facility] (1 source) Benzocaine Drug Allergy 5 [facility] (1 source) Cocaine Drug Allergy 5 [facility] (1 source) Sulfonamides (Antibiotic) Drug allergy (disorder) 5 [facility] Medications Current Medications Medication Drug [...] kidney disease, unspecified CKD stage, unspecified whether residential insulin use (HCC) , Type 2 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, without long-term current use of insulin (HCC) TAKE 4 TABLETS BY MOUTH ONCE DAILY WITH BREAKFAST 360 tablet 3 01/11/2022 Active Start: 10-24-2018 metFORMIN (GLU COPHAGE-XR) 500 MG extended release tablet Take 2,000 mg by mouth 0 10/24/2018 Active Comment on above: Take 4 tablets by mo ut daily with breakfast. TAKE 4 TABLETS BY MO UTH ONCE DAILY WITH BREAKFAST methylphenidate hydrochloride 5 [...] 1 tablet by christ th once daily. Start medication 2 days prior [...] above: Take 1 tablet by christ th twice daily for 3 days. As needed [...] kidney disease, unspecified CKD stage, unspecified whether residential insulin use (HCC) Take 1 tablet by [...] (20 sources) Angiotensin Converting Enzyme Inhibitor Start: End: take 2 capsules by mouth once [...] capsules by m outh once daily sennosides, long term 8.6 mg oral tablet (2 sources) Start: 08-09-2024 End: 08-15-2024 Start: 08-04-2024 End: 08-09-2024 triamcinolone acetonide 0.22854 mg/mg topical ointment (3 sources) Corticosteroid Start: [...] glucose is greater than 200mg/dl, then notify supervisor tank house. [Order 2 End] [Order 3 Start] Name: [...] 50% needed, contact pharmacy or obtain from [facility] cart ++ [Order 5 End] [Order 6 [...] at 1301, Until Specified, Who to Notify: Shoe Repairer Apprentice, For all Blood Glucose LESS THAN 80 mg/dl, notify Shoe Repairer Apprentice after treatment per Hypoglycemia in Non- Adults [...] [Need for assistance with personal care] Onset: Episodic Allergic reactions (1 source) Allergic contact [...] Coronary arteriosclerosis; Translations: [Atherosclerotic heart disease of [place] coronary artery without angina pectoris] Onset: 5 [...] anticoagulants] 08-02-2024 Episodic Other aftercare (1 source) longterm (current) use of aspirin; Translations: [superintendent terminal (current) use of aspirin] Onset: Episodic Other aftercare (1 source) superintendent terminal (current) use of anticoagulants; Translations: [superintendent terminal (current) use of anticoagulants] Onset: 5 Episodic Other aftercare (1 source) superintendent terminal (current) use of oral hypoglycemic drugs; Translations: [superintendent terminal (current) use of oral hypoglycemic drugs] Onset: 5 Episodic Other circulatory disease (1 source) Hypotension, unspecified; Translations: [Hypotension, unspecified] Onset: 5 Episodic Other connective tissue disease (1 source) Pain in left arm; Translations: [Pain in left arm] Onset: Episodic Other diseases of bladder and urethra [...] Range Facility 12 [place] [facility] 12 Lead EKG performed by [facility] [address] [place] [address] 12 Lead E[place] [facility] 10/02/24920 MR#: [id number] Acct: [id number] Name: LINDSAY ACUNA Rep #: [id number] : 1945 78 From: Mj Benavides MD Attending Dr: Dr. Mj Benavides MD Status: DEP A MB Ordering Dr: Mj Benavides MD Date: 10/02/24 [place] [facility] [place] F C Admitted: BMS/12 Lead EKG [place] [facility] [place] Report Interpretation ---Atrial fibrillation -irregular conduction -Old anterior infarct. ABNORMAL Electronically signed on 10/02/2024 at 16:06 by Mj Benavides [employer] Software Version 8610 10/02/24 1608 Date Mj Benavides MD CC: Dr. Kameron Caruso MD Date Dictated: 10/02/24920 Date Transcribed: 10/02/24920 Network Security Engineer: [place] Signed Normal [facility] Cardiology Visit Reporton Cardiology Visit Report [facility] [address] [place] [address] OFFICE VISIT Date of Service: 10/02/24 MR#: [id number] Acct: [id number] Name: LINDSAY ACUNA Rep #: [id number] : 1945 Provider: Dr. Mj Benavides MD Age/Sex: 78/F [place] [facility] Status: Signed HPI HPI History of Present [...] now she is currently domiciled in a longterm. Her previous echocardiogram which was performed in [...] d/t W/C bound Intake Visit Reasons: AFIB ([facility]) Weapons Electrical Engineering Officer Required: No Accompanied by: Significant Other Is [...] you fallen in the past year?: [facility] Acute ischemic right MCA stroke [...] normal, nasal (more content not included)... Normal [facility] Absolute lymphocyte countOrd ered By: Safia Ruelas on 10-01-2024 Lymphocytes Auto (Unsp spec) [#/Vol] 2.45 10*3/uL 0.83-4.51 [facility] Absolute neutrophil countOrd ered By: Safia Ruelas on 10-01-2024 Neutrophils (Bld) [#/Vol] 6.5 10*3/uL 2.0-7.7 [facility] Anion gap in Serum or Plasma Ordered By: Safia Ruelas on 10-01-2024 Anion gap [Moles/Vol] 12 mmol/L 5-15 [facility] Automated lymphocyte count a s percentage of total leukocytesOrdered By: Safia Ruelas on 10-01-2024 Lymphocytes/100 WBC Auto (Unsp spec) 23.1 % 19-41 [facility] BUN/creatinine ratioOrdered By: Safia Ruelas on 10-01-2024 Urea nitrogen/Creatinine [Mass ratio] 24.9 mg/mg High 10-20 [facility] Basophil percentageOrdered B y: Safia Ruelas on 10-01-2024 Basophils/100 WBC (Bld) 0.5 % 0-1 [facility] Carbon dioxide, total [Moles /volume] in Central venous bloodOrdered By: Safia Ruelas on 10-01-2024 CO2 [Moles/Vol] 24.4 mmol/L 21.0-32.0 [facility] Chloride assayOrdered By: Balbir Ruelas on 10-01-2024 Chloride [Moles/Vol] 99 mmol/L 98-108 [facility] Eosinophil percentageOrdered By: Safia Ruelas on 10-01-2024 Eosinophils/100 WBC (Bld) 2.0 % 0-5 [facility] Erythrocyte distribution wid th ratioOrdered By: Safia Ruelas on 10-01-2024 Erythrocyte distribution width (RBC) [Ratio] 13.5 % 11.6-14.6 [facility] Erythrocyte distribution wid th standard deviationOrdered By: sherry Ruelas on 10-01-2024 Erythrocyte distribution width (RBC) [Ratio] 46.2 fl High 35.1-43.9 [facility] Glomerular filtration rate ( GFR) estimation/1.73 sq m using serum, plasma, or whole bOrdered By: Safia Ruelas on 10-01-2024 GFR/1.73 sq M.predicted among non-blacks MDRD (S/P/Bld) [Vol rate/Area] 63 mL/min/{1.73_m2} >60 [facility] Comment on above: mL/min/1.73m2 CKD-EP I Creatinine Equation (2020) Hematocrit Auto (Bld) [Volum e fraction]Ordered By: Leonideswindsorskye Ruelas on 10-01-2024 Hematocrit (Bld) [Volume fraction] 38.7 % 37-47 [facility] Hemoglobin measurementOrdere d By: Safia Ruelas on 10-01-2024 Hemoglobin (Bld) [Mass/Vol] 12.5 g/dL 12.0-15.0 [facility] Immature granulocytes/100 WB C Auto (Bld)Ordered By: Safia Ruelas 10-01-2024 Immature granulocytes/100 WBC (Bld) 0.800 % 0.0-0.9 [facility] Comment on above: IG% - Immature Granu locytes (promyelocytes, myelocytes and metamyelocytes) > 1% indicates that a LEFT SHIFT is Present. MCV (mean corpuscular volume ) determinationOrdered By: Safia Ruelas on 10-01-2024 MCV (RBC) [Entitic vol] 93.3 fL 81-99 [facility] Mean corpuscular hemoglobin (MCH) determinationOrdered By: Safia Ruelas 10-01-2024 MCH (RBC) [Entitic mass] 30.1 pg 27.0-32.0 [facility] Mean corpuscular hemoglobin concentration (MCHC) determinationOrdered By: Safia Ruelas on 10-01-2024 MCHC (RBC) [Mass/Vol] 32.3 g/dL 32-36 [facility] Mean platelet volume determi nationOrdered By: Safia Ruelas on 10-01-2024 Platelet mean volume (Bld) [Entitic vol] 11.7 fL 6.2-12.0 [facility] Monocyte percentageOrdered B y: Safia Ruelas on 10-01-2024 Monocytes/100 WBC (Bld) 12.7 % High 0-10 [facility] Neutrophil percentageOrdered By: Safia Ruelas on 10-01-2024 Neutrophils/100 WBC (Bld) 60.9 % 47-70 [facility] Nucleated red blood cell per centageOrdered By: Safia Ruelas on 10-01-2024 Nucleated RBC/100 WBC (Bld) [Ratio] 0 % 0-5 [facility] Platelet countOrdered By: Balbir jean mariejosé antonio Ruelas on 10-01-2024 Platelets (Bld) [#/Vol] 371 10*3/uL 150-450 [facility] Potassium measurement (mass/ volume)Ordered By: Safia Ruelas on 10-01-2024 Potassium (Unsp spec) [Mass/Vol] 4.2 mmol/L 3.3-5.1 [facility] RBC Auto (Bld) [#/Vol]Ordere d By: Safia Ruelas on 10-01-2024 RBC (Bld) [#/Vol] 4.15 10*6/uL Low 4.2-5.4 [facility] Serum creatinine measurement (mass/volume)Ordered By: Safia Ruelas on 10-01-2024 Creatinine [Mass/Vol] 0.93 mg/dL 0.70-1.20 [facility] Serum glucose measurement (m ass/volume)Ordered By: Safia Ruelas on 10-01-2024 Glucose [Mass/Vol] 93 mg/dL 70-99 [facility] Serum or plasma calcium dayna urement (mass/volume)Ordered By: Safia Griderbonimelanie on 10-01-2024 Calcium [Mass/Vol] 9.5 mg/dL 7.6-11.0 [facility] Serum or plasma urea nitroge n measurement (mass/volume)Ordered By: Balbirjean mariedesireeskye Griderbonimelanie on 10-01-2024 Urea nitrogen [Mass/Vol] 23 mg/dL High 4-19 [facility] Sodium levelOrdered By: Leonides chou Cheobonimelanie on 10-01-2024 Sodium [Moles/Vol] 135 mmol/L 133-145 [facility] White blood cell (WBC) count Ordered By: Balbirjean mariedesireeskye Griderbonimelanie on 10-01-2024 WBC (Bld) [#/Vol] 10.6 10*3/uL 4.4-11.0 [facility] Clostridium difficile detect ion by polymerase chain reactionOrdered By: Safia Ruelas on 09-29-2024 C. difficile DNA CHUCKY+probe Ql (Unsp spec) [facility] Absolute lymphocyte countOrd ered By: jean mariejosé antonio Cheobonimelanie on 09-24-2024 Lymphocytes Auto (Unsp spec) [#/Vol] 2.72 10*3/uL 0.83-4.51 [facility] Absolute neutrophil countOrd ered By: Safia Cheobonimelanie on 09-24-2024 Neutrophils (Bld) [#/Vol] 6.3 10*3/uL 2.0-7.7 [facility] Anion gap in Serum or Plasma Ordered By: Safia Griderbonimelanie on 09-24-2024 Anion gap [Moles/Vol] 12 mmol/L 5-15 [facility] Automated lymphocyte count a s percentage of total leukocytesOrdered By: Safia Griderbonimelanie on 09-24-2024 Lymphocytes/100 WBC Auto (Unsp spec) 26.3 % 19-41 [facility] BUN/creatinine ratioOrdered By: Balbirjean mariedesireeskye Griderbonimelanie on 09-24-2024 Urea nitrogen/Creatinine [Mass ratio] 36.4 mg/mg High 10-20 [facility] Basophil percentageOrdered B y: Balbirjean mariedesireeskye Griderbonimelanie on 09-24-2024 Basophils/100 WBC (Bld) 0.7 % 0-1 [facility] Carbon dioxide, total [Moles /volume] in Central venous bloodOrdered By: Safia Ruelas on 09-24-2024 CO2 [Moles/Vol] 24.1 mmol/L 21.0-32.0 [facility] Chloride assayOrdered By: Balbir Ruelas on 09-24-2024 Chloride [Moles/Vol] 100 mmol/L 98-108 [facility] Eosinophil percentageOrdered By: Safia Ruelas on 09-24-2024 Eosinophils/100 WBC (Bld) 2.7 % 0-5 [facility] Erythrocyte distribution wid th ratioOrdered By: Safia Ruelas on 09-24-2024 Erythrocyte distribution width (RBC) [Ratio] 13.6 % 11.6-14.6 [facility] Erythrocyte distribution wid th standard deviationOrdered By: jean mariewindsorskye Ruelas on 09-24-2024 Erythrocyte distribution width (RBC) [Ratio] 47.1 fl High 35.1-43.9 [facility] Glomerular filtration rate ( GFR) estimation/1.73 sq m using serum, plasma, or whole bOrdered By: Safia Ruelas on 09-24-2024 GFR/1.73 sq M.predicted among non-blacks MDRD (S/P/Bld) [Vol rate/Area] 62 mL/min/{1.73_m2} >60 [facility] Comment on above: mL/min/1.73m2 CKD-EP I Creatinine Equation (2020) Hematocrit Auto (Bld) [Volum e fraction]Ordered By: Safia Ruelas on 09-24-2024 Hematocrit (Bld) [Volume fraction] 41.2 % 37-47 [facility] Hemoglobin measurementOrdere d By: Safia Ruelas on 09-24-2024 Hemoglobin (Bld) [Mass/Vol] 13.0 g/dL 12.0-15.0 [facility] Immature granulocytes/100 WB C Auto (Bld)Ordered By: Safia Ruelas on 09-24-2024 Immature granulocytes/100 WBC (Bld) 1.000 % High 0.0-0.9 [facility] Comment on above: IG% - Immature Granu locytes (promyelocytes, myelocytes and metamyelocytes) > 1% indicates that a LEFT SHIFT is Present. MCV (mean corpuscular volume ) determinationOrdered By: Safia Ruelas on 09-24-2024 MCV (RBC) [Entitic vol] 94.3 fL 81-99 [facility] Mean corpuscular hemoglobin (MCH) determinationOrdered By: Safia Ruelas on 09-24-2024 MCH (RBC) [Entitic mass] 29.7 pg 27.0-32.0 [facility] Mean corpuscular hemoglobin concentration (MCHC) determinationOrdered By: Safia Ruelas on 09-24-2024 MCHC (RBC) [Mass/Vol] 31.6 g/dL Low 32-36 [facility] Mean platelet volume determi nationOrdered By: Safia Ruelas on 09-24-2024 Platelet mean volume (Bld) [Entitic vol] 11.3 fL 6.2-12.0 [facility] Monocyte percentageOrdered B y: Safia Ruelas on 09-24-2024 Monocytes/100 WBC (Bld) 8.9 % 0-10 [facility] Neutrophil percentageOrdered By: Safia Ruelas on 09-24-2024 Neutrophils/100 WBC (Bld) 60.4 % 47-70 [facility] Nucleated red blood cell per centageOrdered By: Safia Ruelas on 09-24-2024 Nucleated RBC/100 WBC (Bld) [Ratio] 0 % 0-5 [facility] Platelet countOrdered By: Balbir Ruelas on 09-24-2024 Platelets (Bld) [#/Vol] 441 10*3/uL 150-450 [facility] Potassium measurement (mass/ volume)Ordered By: Safia Ruelas on 09-24-2024 Potassium (Unsp spec) [Mass/Vol] 4.3 mmol/L 3.3-5.1 [facility] RBC Auto (Bld) [#/Vol]Ordere d By: Safia Ruelas on 09-24-2024 RBC (Bld) [#/Vol] 4.37 10*6/uL 4.2-5.4 [facility] Serum creatinine measurement (mass/volume)Ordered By: Bandarskye Griderbonimelanie on 09-24-2024 Creatinine [Mass/Vol] 0.93 mg/dL 0.70-1.20 [facility] Serum glucose measurement (m ass/volume)Ordered By: Balbirjean mariedesireeskye Griderbonimelanie on 09-24-2024 Glucose [Mass/Vol] 48 mg/dL Low 70-99 [facility] Serum or plasma calcium dayna urement (mass/volume)Ordered By: Balbirjean mariedesireeskye Griderbonimelanie on 09-24-2024 Calcium [Mass/Vol] 9.5 mg/dL 7.6-11.0 [facility] Serum or plasma urea nitroge n measurement (mass/volume)Ordered By: Balbirjean mariedesireeskye Griderbonimelanie on 09-24-2024 Urea nitrogen [Mass/Vol] 34 mg/dL High 4-19 [facility] Sodium levelOrdered By: Leonides chou Cheobonimelanie on 09-24-2024 Sodium [Moles/Vol] 136 mmol/L 133-145 [facility] White blood cell (WBC) count Ordered By: Balbirjean mariejosé antonio Cheobonimelanie on 09-24-2024 WBC (Bld) [#/Vol] 10.4 10*3/uL 4.4-11.0 [facility] Absolute lymphocyte countOrd ered By: Leonidesdesireeskye Griderbonimelanie on 09-17-2024 Lymphocytes Auto (Unsp spec) [#/Vol] 2.52 10*3/uL 0.83-4.51 [facility] Absolute neutrophil countOrd ered By: Safia Cheobonimelanie on 09-17-2024 Neutrophils (Bld) [#/Vol] 5.8 10*3/uL 2.0-7.7 [facility] Anion gap in Serum or Plasma Ordered By: Safia Ruelas on 09-17-2024 Anion gap [Moles/Vol] 12 mmol/L 5-15 [facility] Automated lymphocyte count a s percentage of total leukocytesOrdered By: Safia Griderbonimelanie on 09-17-2024 Lymphocytes/100 WBC Auto (Unsp spec) 26.3 % 19-41 [facility] BUN/creatinine ratioOrdered By: Safia Ruelas on 09-17-2024 Urea nitrogen/Creatinine [Mass ratio] 45.9 mg/mg High 10-20 [facility] Basophil percentageOrdered B y: Safia Ruelas on 09-17-2024 Basophils/100 WBC (Bld) 0.6 % 0-1 [facility] Calculated very low density lipoprotein (VLDL) cholesterol measurementOrdered By: Safia Ruelas on 09-17-2024 Calculated very low density lipoprotein (VLDL) cholesterol measurement 22 mg/dL 5-40 [facility] Carbon dioxide, total [Moles /volume] in Central venous bloodOrdered By: Safia Ruelas on 09-17-2024 CO2 [Moles/Vol] 24.5 mmol/L 21.0-32.0 [facility] Chloride assayOrdered By: Balbir Ruelas on 09-17-2024 Chloride [Moles/Vol] 98 mmol/L 98-108 [facility] Eosinophil percentageOrdered By: Safia Ruelas on 09-17-2024 Eosinophils/100 WBC (Bld) 3.2 % 0-5 [facility] Erythrocyte distribution wid th ratioOrdered By: Safia Ruelas on 09-17-2024 Erythrocyte distribution width (RBC) [Ratio] 13.4 % 11.6-14.6 [facility] Erythrocyte distribution wid th standard deviationOrdered By: Safia Ruelas on 09-17-2024 Erythrocyte distribution width (RBC) [Ratio] 45.4 fl High 35.1-43.9 [facility] Glomerular filtration rate ( GFR) estimation/1.73 sq m using serum, plasma, or whole bOrdered By: Safia Ruelas on 09-17-2024 GFR/1.73 sq M.predicted among non-blacks MDRD (S/P/Bld) [Vol rate/Area] 69 mL/min/{1.73_m2} >60 [facility] Comment on above: mL/min/1.73m2 CKD-EP I Creatinine Equation (2020) Hematocrit Auto (Bld) [Volum e fraction]Ordered By: Safia Ruelas on 09-17-2024 Hematocrit (Bld) [Volume fraction] 38.8 % 37-47 [facility] Hemoglobin measurementOrdere d By: Safia Ruelas on 09-17-2024 Hemoglobin (Bld) [Mass/Vol] 12.6 g/dL 12.0-15.0 [facility] Immature granulocytes/100 WB C Auto (Bld)Ordered By: Safia Ruelas on 09-17-2024 Immature granulocytes/100 WBC (Bld) 0.700 % 0.0-0.9 [facility] Comment on above: IG% - Immature Granu locytes (promyelocytes, myelocytes and metamyelocytes) > 1% indicates that a LEFT SHIFT is Present. LDL calc ser/plasOrdered By: Safia Ruelas on 09-17-2024 Cholesterol in LDL [Mass/Vol] 120 mg/dL [facility] Comment on above: Osmffpwizo=186-189 m g/dL & Higher Akqi=227 mg/dL or greater MCV (mean corpuscular volume ) determinationOrdered By: Safia Ruelas on 09-17-2024 MCV (RBC) [Entitic vol] 91.7 fL 81-99 [facility] Mean corpuscular hemoglobin (MCH) determinationOrdered By: Safia Ruelas on 09-17-2024 MCH (RBC) [Entitic mass] 29.8 pg 27.0-32.0 [facility] Mean corpuscular hemoglobin concentration (MCHC) determinationOrdered By: Safia Ruelas on 09-17-2024 MCHC (RBC) [Mass/Vol] 32.5 g/dL 32-36 [facility] Mean platelet volume determi nationOrdered By: Safia Ruelas on 09-17-2024 Platelet mean volume (Bld) [Entitic vol] 11.4 fL 6.2-12.0 [facility] Monocyte percentageOrdered B y: Safia Ruelas on 09-17-2024 Monocytes/100 WBC (Bld) 8.5 % 0-10 [facility] Neutrophil percentageOrdered By: Safia Ruelas on 09-17-2024 Neutrophils/100 WBC (Bld) 60.7 % 47-70 [facility] Nucleated red blood cell per centageOrdered By: Safia Ruelas on 09-17-2024 Nucleated RBC/100 WBC (Bld) [Ratio] 0 % 0-5 [facility] Platelet countOrdered By: Balbir Ruelas on 09-17-2024 Platelets (Bld) [#/Vol] 311 10*3/uL 150-450 [facility] Potassium measurement (mass/ volume)Ordered By: Safia Ruelas on 09-17-2024 Potassium (Unsp spec) [Mass/Vol] 4.1 mmol/L 3.3-5.1 [facility] RBC Auto (Bld) [#/Vol]Ordere d By: Safia Ruelas on 09-17-2024 RBC (Bld) [#/Vol] 4.23 10*6/uL 4.2-5.4 [facility] Screening total cholesterol/ high density lipoprotein (HDL) cholesterol ratioOrdered By: Safia Ruelas on 09-17-2024 Cholesterol.total/Alta sterol in HDL [Mass ratio] 5.38 {ratio} [facility] Serum creatinine measurement (mass/volume)Ordered By: Safia Ruelas on 09-17-2024 Creatinine [Mass/Vol] 0.86 mg/dL 0.70-1.20 [facility] Serum glucose measurement (m ass/volume)Ordered By: Safia Ruelas on 09-17-2024 Glucose [Mass/Vol] 216 mg/dL High 70-99 [facility] Serum or plasma calcium dayna urement (mass/volume)Ordered By: Safia Ruelas on 09-17-2024 Calcium [Mass/Vol] 9.4 mg/dL 7.6-11.0 [facility] Serum or plasma cholesterol in HDL measurement (mass/volume)Ordered By: Safia Ruelas on 09-17-2024 Cholesterol in HDL [Mass/Vol] 33 mg/dL Low >40 [facility] Comment on above: National Cholesterol Education Program (NCEP) guidelines:<40 mg/dL: Low HDL-cholesterol (major risk factor for CHD)>= 60 mg/dL: High HDL-cholesterol (negative risk factor for CHD)HDL-cholesterol is affected by a number of factors, e.g. smoking, exercise, hormones, sex and age. Serum or plasma cholesterol measurement (mass/volume)Ordered By: Safia Ruelas on 09-17-2024 Cholesterol [Mass/Vol] 175 mg/dL <201 [facility] Comment on above: Cholesterol level, D esirable <200 mg/dLBorderline high cholesterol 200-239 mg/dLHigh cholesterol >=240 mg/dLRecommendations of the NCEP Adult Treatment Panel for the following risk-cutoff thresholds for the [place] population. Serum or plasma urea nitroge n measurement (mass/volume)Ordered By: Safia Ruelas on 09-17-2024 Urea nitrogen [Mass/Vol] 39 mg/dL High 4-19 [facility] Sodium levelOrdered By: Leonides Ruelas on 09-17-2024 Sodium [Moles/Vol] 134 mmol/L 133-145 [facility] TSH DL <= 0.005 mIU/L QnOrde red By: Safia Ruelas on 09-17-2024 TSH Qn 3.500 uIU/mL 0.300-4.200 [facility] Triglycerides measurementOrd ered By: Safia Ruelas on 09-17-2024 Triglyceride [Mass/Vol] 111 mg/dL <199 [facility] Comment on above: The drugs N-Acetylcy steine and Metamizole may falsely depress this assay. Normal range: <150 mg/dLBorderline High: 150-199 mg/dLHigh: 200-499 mg/dLVery High: >500 mg/dL White blood cell (WBC) count Ordered By: Safia Ruelas on 09-17-2024 WBC (Bld) [#/Vol] 9.6 10*3/uL 4.4-11.0 [facility] Absolute lymphocyte countOrd ered By: Safia Ruelas on 09-10-2024 Lymphocytes Auto (Unsp spec) [#/Vol] 2.11 10*3/uL 0.83-4.51 [facility] Absolute neutrophil countOrd ered By: Safia Ruelas on 09-10-2024 Neutrophils (Bld) [#/Vol] 8.1 10*3/uL High 2.0-7.7 [facility] Anion gap in Serum or Plasma Ordered By: Balbirjean mariejosé antonio Cheobonimelanie on 09-10-2024 Anion gap [Moles/Vol] 13 mmol/L 5-15 [facility] Automated lymphocyte count a s percentage of total leukocytesOrdered By: Safia Griderbonimelanie on 09-10-2024 Lymphocytes/100 WBC Auto (Unsp spec) 17.9 % Low 19-41 [facility] BUN/creatinine ratioOrdered By: [facility] Cheobonimelanie on 09-10-2024 Urea nitrogen/Creatinine [Mass ratio] 29.1 mg/mg High 10-20 [facility] Basophil percentageOrdered B y: Safia Cheobonimelanie on 09-10-2024 Basophils/100 WBC (Bld) 0.3 % 0-1 [facility] Bilirubin, totalOrdered By: Balbirjean mariejosé antonio Cheobonimelanie on 09-10-2024 Bilirubin [Mass/Vol] 0.55 mg/dL 0.00-1.30 [facility] Carbon dioxide, total [Moles /volume] in Central venous bloodOrdered By: Balbirjean mariejosé antonio Cheobonimelanie on 09-10-2024 CO2 [Moles/Vol] 23.6 mmol/L 21.0-32.0 [facility] Chloride assayOrdered By: Balbir randallskye Griderbonimelanie on 09-10-2024 Chloride [Moles/Vol] 97 mmol/L Low 98-108 [facility] Eosinophil percentageOrdered By: jean mariejosé antonio Westonmelanie on 09-10-2024 Eosinophils/100 WBC (Bld) 0.5 % 0-5 [facility] Erythrocyte distribution wid th ratioOrdered By: jean mariewindsorskye Cheobonimelanie on 09-10-2024 Erythrocyte distribution width (RBC) [Ratio] 13.4 % 11.6-14.6 [facility] Erythrocyte distribution wid th standard deviationOrdered By: jean mariewindsorskye Griderbonimelanie on 09-10-2024 Erythrocyte distribution width (RBC) [Ratio] 45.2 fl High 35.1-43.9 [facility] Glomerular filtration rate ( GFR) estimation/1.73 sq m using serum, plasma, or whole bOrdered By: Safia Ruelas on 09-10-2024 GFR/1.73 sq M.predicted among non-blacks MDRD (S/P/Bld) [Vol rate/Area] 59 mL/min/{1.73_m2} Low >60 [facility] Comment on above: mL/min/1.73m2 CKD-EP I Creatinine Equation (2020) Hematocrit Auto (Bld) [Volum e fraction]Ordered By: Safia Ruelas on 09-10-2024 Hematocrit (Bld) [Volume fraction] 41.8 % 37-47 [facility] Hemoglobin measurementOrdere d By: Safia Ruelas on 09-10-2024 Hemoglobin (Bld) [Mass/Vol] 13.4 g/dL 12.0-15.0 [facility] Immature granulocytes/100 WB C Auto (Bld)Ordered By: Safia Ruelas 09-10-2024 Immature granulocytes/100 WBC (Bld) 0.800 % 0.0-0.9 [facility] Comment on above: IG% - Immature Granu locytes (promyelocytes, myelocytes and metamyelocytes) > 1% indicates that a LEFT SHIFT is Present. Laboratory - Chemistry and C hemistry - challengeOrdered By: Safia Ruelas on 09-10-2024 AST [Catalytic activity/Vol] 21 U/L <32 [facility] MCV (mean corpuscular volume ) determinationOrdered By: Safia Ruelas on 09-10-2024 MCV (RBC) [Entitic vol] 92.5 fL 81-99 [facility] Mean corpuscular hemoglobin (MCH) determinationOrdered By: Safia Ruelas 09-10-2024 MCH (RBC) [Entitic mass] 29.6 pg 27.0-32.0 [facility] Mean corpuscular hemoglobin concentration (MCHC) determinationOrdered By: Safia Ruelas on 09-10-2024 MCHC (RBC) [Mass/Vol] 32.1 g/dL 32-36 [facility] Mean platelet volume determi nationOrdered By: Safia Ruelas on 09-10-2024 Platelet mean volume (Bld) [Entitic vol] 12.6 fL High 6.2-12.0 [facility] Monocyte percentageOrdered B y: Safia Cheobonimelanie on 09-10-2024 Monocytes/100 WBC (Bld) 12.3 % High 0-10 [facility] Neutrophil percentageOrdered By: Safia Ruelas on 09-10-2024 Neutrophils/100 WBC (Bld) 68.2 % 47-70 [facility] Nucleated red blood cell per centageOrdered By: Safia Ruelas on 09-10-2024 Nucleated RBC/100 WBC (Bld) [Ratio] 0 % 0-5 [facility] Platelet countOrdered By: Balbir Ruelas on 09-10-2024 Platelets (Bld) [#/Vol] 190 10*3/uL 150-450 [facility] Potassium measurement (mass/ volume)Ordered By: Safia Ruelas on 09-10-2024 Potassium (Unsp spec) [Mass/Vol] 4.3 mmol/L 3.3-5.1 [facility] RBC Auto (Bld) [#/Vol]Ordere d By: Safia Ruelas on 09-10-2024 RBC (Bld) [#/Vol] 4.52 10*6/uL 4.2-5.4 [facility] Serum creatinine measurement (mass/volume)Ordered By: Safia Ruelas on 09-10-2024 Creatinine [Mass/Vol] 0.98 mg/dL 0.70-1.20 [facility] Serum globulin measurementOr dered By: Safia Ruelas on 09-10-2024 Globulin (S) [Mass/Vol] 3.3 g/dL 2.2-4.2 [facility] Serum glucose measurement (m ass/volume)Ordered By: Safia Ruelas on 09-10-2024 Glucose [Mass/Vol] 181 mg/dL High 70-99 [facility] Serum or plasma alanine raymundo otransferase (ALT) measurementOrdered By: Safia Ruelas on 09-10-2024 ALT [Catalytic activity/Vol] 26 U/L <35 [facility] Serum or plasma albumin dayna urement (mass/volume)Ordered By: Safia Ruelas on 09-10-2024 Albumin [Mass/Vol] 3.4 g/dL 3.4-4.8 [facility] Serum or plasma albumin/glob ulin mass ratioOrdered By: Safia Ruelas on 09-10-2024 Albumin/Globulin [Mass ratio] 1.0 {ratio} 0.9-2.4 [facility] Serum or plasma alkaline hannah sphatase measurementOrdered By: Safia Ruelas on 09-10-2024 ALP [Catalytic activity/Vol] 114 U/L High 35-104 [facility] Serum or plasma calcium dayna urement (mass/volume)Ordered By: Safia Ruelas on 09-10-2024 Calcium [Mass/Vol] 9.3 mg/dL 7.6-11.0 [facility] Serum or plasma urea nitroge n measurement (mass/volume)Ordered By: Safia Ruelas on 09-10-2024 Urea nitrogen [Mass/Vol] 29 mg/dL High 4-19 [facility] Sodium levelOrdered By: Leonides jiménezradha Jessenia on 09-10-2024 Sodium [Moles/Vol] 133 mmol/L 133-145 [facility] Total proteinOrdered By: Augusto sherlynskye Ruelas on 09-10-2024 Protein [Mass/Vol] 6.7 g/dL 5.9-8.4 [facility] White blood cell (WBC) count Ordered By: Safia Ruelas on 09-10-2024 WBC (Bld) [#/Vol] 11.8 10*3/uL High 4.4-11.0 [facility] LABORATORYOrdered By: Abigail Smith on 09-09-2024 Glucose [Mass/Vol] 212 mg/dL High 82 - 115 mg/dL [employer] Work Phone: Glucose [Mass/Vol] 226 mg/dL High 82 - 115 mg/dL [employer] Work Phone: LABORATORYOrdered By: Zoila Zarco on 09-08-2024 Glucose [Mass/Vol] 149 mg/dL High 82 - 115 mg/dL [employer] Work Phone: LABORATORYOrdered By: Rob Palmer on 09-08-2024 Blood Glucose Testing Reason Routine (09/08/24 6:16 PM) [employer] Work Phone: Blood Glucose Testing Reason Routine (09/08/24 11:58 AM) [employer] Work Phone: LABORATORYOrdered By: Rob Palmer on 09-07-2024 Blood Glucose Testing Reason Routine (09/07/24 4:46 PM) [employer] Work Phone: .Auto Diffon 09-03-2024 Basophil, Absolute 0.1 10 3/mcL Normal 0.0-0.3 [facility] Comment on above: Performed By: #### A DIFF, CBC, ANEU, GFR, BMP #### [address] [address] Basophils/100 WBC (Bld) 1.0 % Normal 0.0-2.5 [facility] Comment on above: Performed By: #### A DIFF, CBC, ANEU, GFR, BMP #### [address] [address] Eosinophil, Absolute 0.2 10 3/mcL Normal 0.0-0.7 [facility] Comment on above: Performed By: #### A DIFF, CBC, ANEU, GFR, BMP #### [address] [address] Eosinophils/100 WBC (Bld) 3.2 % Normal 0.0-6.0 [facility] Comment on above: Performed By: #### A DIFF, CBC, ANEU, GFR, BMP #### [address] [address] Lymphocyte, Absolute 2.0 10 3/mcL Normal 0.9-4.3 [facility] Comment on above: Performed By: #### A DIFF, CBC, ANEU, GFR, BMP #### [address] [address] Lymphocytes/100 WBC (Bld) 26.6 % Normal 20.0-40.0 [facility] Comment on above: Performed By: #### A DIFF, CBC, ANEU, GFR, BMP #### [facility] [address] [place] [address] Monocyte, Absolute 0.7 10 3/mcL Normal 0.1-1.4 [facility] Comment on above: Performed By: #### A DIFF, CBC, ANEU, GFR, BMP #### [place] [address] [place] [address] Monocytes/100 WBC (Bld) 9.7 % Normal 2.0-13.0 [facility] Comment on above: Performed By: #### A DIFF, CBC, ANEU, GFR, BMP #### [address] [address] Neutrophils/100 WBC (Bld) 59.5 % Normal 50.0-75.0 [facility] Comment on above: Performed By: #### A DIFF, CBC, ANEU, GFR, BMP #### [address] [address] .GFRon 09-03-2024 Estimated Glomerular Filtration Rate 57 ml/min/1.73sqm Normal [facility] Comment on above: Result Comment: [...] A DIFF, CBC, ANEU, GFR, BMP #### [address] [address] .NEUABSon 09-03-2024 Neutrophil, Absolute 4.5 10 3/mcL Normal 2.3-8.1 [facility] Comment on above: Performed By: #### A DIFF, CBC, ANEU, GFR, BMP #### [place] [address] B12on 09-03-2024 Cobalamin (Vitamin B12) [Mass/Vol] 834 pg/mL Normal 211-911 [facility] Comment on above: Performed By: #### A DIFF, CBC, ANEU, GFR, BMP #### [place] [address] CBCon 09-03-2024 Erythrocyte distribution width (RBC) [Ratio] 14.7 % Normal 11.5-15.5 [facility] Comment on above: Performed By: #### A DIFF, CBC, ANEU, GFR, BMP #### [place] [address] Hematocrit (Bld) [Volume fraction] 39.7 % Normal 34.0-46.0 [facility] Comment on above: Performed By: #### A DIFF, CBC, ANEU, GFR, BMP #### [place] [address] Hgb 13.2 G/dL Normal 12.0-16.0 [facility] Comment on above: Performed By: #### A DIFF, CBC, ANEU, GFR, BMP #### [place] [address] MCH (RBC) [Entitic mass] 30.6 pg Normal 27.0-33.0 [facility] Comment on above: Performed By: #### A DIFF, CBC, ANEU, GFR, BMP #### [place] [address] MCHC 33.3 G/dL Normal 32.0-36.0 [facility] Comment on above: Performed By: #### A DIFF, CBC, ANEU, GFR, BMP #### [place] [address] MCV (RBC) [Entitic vol] 91.9 fL Normal 80.0-99.0 [facility] Comment on above: Performed By: #### A DIFF, CBC, ANEU, GFR, BMP #### [address] [address] Platelet 228 10 3/mcL Normal 150-450 [facility] Comment on above: Performed By: #### A DIFF, CBC, ANEU, GFR, BMP #### [address] [address] Platelet mean volume (Bld) [Entitic vol] 10.1 fL Normal 6.6-10.5 [facility] Comment on above: Performed By: #### A DIFF, CBC, ANEU, GFR, BMP #### [address] [address] RBC 4.32 10 6/mcL Normal 4.10-5.30 [facility] Comment on above: Performed By: #### A DIFF, CBC, ANEU, GFR, BMP #### [address] [address] WBC 7.6 10 3/mcL Normal 4.5-10.8 [facility] Comment on above: Performed By: #### A DIFF, CBC, ANEU, GFR, BMP #### [address] [address] CMPon 09-03-2024 Albumin Level 3.0 G/dL Low 3.2-4.8 [facility] Comment on above: Performed By: #### A DIFF, CBC, ANEU, GFR, BMP #### [place] [id number] Albumin/Globulin [Mass ratio] 0.9 {ratio} Normal 0.9-1.6 [facility] Comment on above: Performed By: #### A DIFF, CBC, ANEU, GFR, BMP #### [address] [address] ALP [Catalytic activity/Vol] 115 U/L Normal 38-126 [facility] Comment on above: Performed By: #### A DIFF, CBC, ANEU, GFR, BMP #### [address] [address] ALT [Catalytic activity/Vol] 37 U/L Normal 10-49 [facility] Comment on above: Performed By: #### A DIFF, CBC, ANEU, GFR, BMP #### [address] [address] AST [Catalytic activity/Vol] 31 U/L Normal 8-34 [facility] Comment on above: Performed By: #### A DIFF, CBC, ANEU, GFR, BMP #### [address] [address] Bili Total 0.50 mg/dL Normal 0.20-1.20 [facility] Comment on above: Result Comment: Use of this assay is not recommended for patients undergoing treatment with eltrombopag due to the potential for falsely elevated results. Performed By: #### A DIFF, CBC, ANEU, GFR, BMP #### [place] [id number] BUN/Creatinine Ratio 29.7 ratio High 10.0-22.0 [facility] Comment on above: Performed By: #### A DIFF, CBC, ANEU, GFR, BMP #### [place] [id number] Calcium [Mass/Vol] 9.6 mg/dL Normal 8.7-10.4 [facility] Comment on above: Performed By: #### A DIFF, CBC, ANEU, GFR, BMP #### [place] [id number] Chloride [Moles/Vol] 101 mmol/L Normal 98-110 [facility] Comment on above: Performed By: #### A DIFF, CBC, ANEU, GFR, BMP #### [address] [address] CO2 [Moles/Vol] 27 mmol/L Normal 22-32 [facility] Comment on above: Performed By: #### A DIFF, CBC, ANEU, GFR, BMP #### [address] [address] Creatinine [Mass/Vol] 1.01 mg/dL Normal 0.50-1.20 [facility] Comment on above: Result Comment: Test ing performed on [place] [employer] analyzer using enzymatic creatinine methodology. Performed By: #### A DIFF, CBC, ANEU, GFR, BMP #### [place] [id number] Electrolyte Balance 10.0 mEq/L Normal 4.0-15.0 [facility] Comment on above: Performed By: #### A DIFF, CBC, ANEU, GFR, BMP #### [address] [address] Globulin 3.4 G/dL Normal 1.5-3.8 [facility] Comment on above: Performed By: #### A DIFF, CBC, ANEU, GFR, BMP #### [address] [address] Glucose [Mass/Vol] 187 mg/dL High 82-115 [facility] Comment on above: Performed By: #### A DIFF, CBC, ANEU, GFR, BMP #### [address] [address] Potassium [Moles/Vol] 4.6 mmol/L Normal 3.5-5.0 [facility] Comment on above: Performed By: #### A DIFF, CBC, ANEU, GFR, BMP #### [address] [address] Sodium [Moles/Vol] 138 mmol/L Normal 136-145 [facility] Comment on above: Performed By: #### A DIFF, CBC, ANEU, GFR, BMP #### [address] [address] Total Protein 6.4 G/dL Normal 5.7-8.2 [facility] Comment on above: Performed By: #### A DIFF, CBC, ANEU, GFR, BMP #### [address] [address] Urea nitrogen [Mass/Vol] 30.0 mg/dL High 8.0-22.0 [facility] Comment on above: Performed By: #### A DIFF, CBC, ANEU, GFR, BMP #### [address] [address] LABORATORYOrdered By: Ann Carrillo on 09-03-2024 Glucose [Mass/Vol] 270 mg/dL [facility] Work Phone: LABORATORYOrdered By: SYSTEM SYSTEM on 09-03-2024 Albumin BCP dye [Mass/Vol] 3.0 G/dL Low 3.2 - 4.8 G/dL ADM SS Albumin/Globulin [Mass ratio] 0.9 {ratio} Normal 0.9 - 1.6 ratio ADM SS ALP [Catalytic activity/Vol] 115 U/L [...] above: Interpretive Data: T esting performed on [place] [employer] analyzer using enzymatic creatinine methodology. Electrolyte Balance [...] 30.0 mg/dL High 8.0 - 22.0 mg/dL ADM SS Urea nitrogen/Creatinine [Mass ratio] 29.7 ratio High 10.0 - 22.0 ratio ADM SS WBC (Bld) [#/Vol] 7.6 103/mcL Normal 4.5 - 10.8 10^3/mcL AH Workflow SS TSHon 09-03-2024 TSH 3.920 mIU/mL Normal 0.550-4.780 [facility] Comment on above: Performed By: #### A DIFF, CBC, ANEU, GFR, BMP #### [place] [address] CT HEAD OR BRAIN W/O CONTRAS Ton [...] 09/02/2024 3:10:44 PM Ordering Provider: SILVINO HA [facility] [place] 08-30-2024 [facility] Telephone (FAMPWS) LINDSAY ACUNA ([id number]) 1945 F Date Time Provider Department 08/30/24 KAMERON CARUSO FAMAkinWS During your visit today, we recorded the following information about you: Jaiden Paulino, RN 08/30/2024 9:11 AM [facility] dx: [facility], and [facility]. Pt [facility] on 09[facility]07[facility]24 to home with [facility] SN PT OT [facility]. Asking if pcp agreeable to follow for [facility]. Please phone Marya with verbal: [phone] Mj Glover APRN.GARRETT 08/30/2024 9:19 AM Signed Please let know that Dr. Caruso's team will follow orders. Okay to proceed. Mj Glover APRN.Fouzia Reynoso LPN 08/30/2024 10:09 AM Signed Marya with [facility] notified. Allergies As of Date: 08/30/2024 Noted Allergy Reaction BENZOCAINE 07/08/2005 2 - Rash COCAINE 05/28/2008 Comments: Inverted T PERFUMES 07/08/2005 12 - Shortness of Breath Comments: coughes and chokes SULFA (SULFONAMIDE ANTIBIOTICS) 07/08/2005 5 - Intolerance Date Reviewed: 06/26/2024 Reviewed by: Bret Arambula LPN - Fully Assessed Reason for Visit: Tyler [facility] requesting verbal agree to follow [Other] Prescriptions [...] Status:Closed by FOUZIA MILLER on 08/30/24 Normal [facility] .Auto Diffon 08-26-2024 Basophil, Absolute 0.1 10 3/mcL Normal 0.0-0.3 [facility] Comment on above: Performed By: #### A DIFF, CBC, ANEU, GFR, BMP #### [address] [address] Basophils/100 WBC (Bld) 1.0 % Normal 0.0-2.5 [facility] Comment on above: Performed By: #### A DIFF, CBC, ANEU, GFR, BMP #### [address] [address] Eosinophil, Absolute 0.3 10 3/mcL Normal 0.0-0.7 [facility] Comment on above: Performed By: #### A DIFF, CBC, ANEU, GFR, BMP #### [address] [address] Eosinophils/100 WBC (Bld) 4.2 % Normal 0.0-6.0 [facility] Comment on above: Performed By: #### A DIFF, CBC, ANEU, GFR, BMP #### [address] [address] Lymphocyte, Absolute 2.2 10 3/mcL Normal 0.9-4.3 [facility] Comment on above: Performed By: #### A DIFF, CBC, ANEU, GFR, BMP #### [address] [address] Lymphocytes/100 WBC (Bld) 26.3 % Normal 20.0-40.0 [facility] Comment on above: Performed By: #### A DIFF, CBC, ANEU, GFR, BMP #### [address] [address] Monocyte, Absolute 0.9 10 3/mcL Normal 0.1-1.4 [facility] Comment on above: Performed By: #### A DIFF, CBC, ANEU, GFR, BMP #### [address] [address] Monocytes/100 WBC (Bld) 11.4 % Normal 2.0-13.0 [facility] Comment on above: Performed By: #### A DIFF, CBC, ANEU, GFR, BMP #### [address] [address] Neutrophils/100 WBC (Bld) 57.1 % Normal 50.0-75.0 [facility] Comment on above: Performed By: #### A DIFF, CBC, ANEU, GFR, BMP #### [address] [address] .GFRon 08-26-2024 Estimated Glomerular Filtration Rate 59 ml/min/1.73sqm Normal [facility] Comment on above: Result Comment: [...] A DIFF, CBC, ANEU, GFR, BMP #### [address] [address] .NEUABSon 08-26-2024 Neutrophil, Absolute 4.7 10 3/mcL Normal 2.3-8.1 [facility] Comment on above: Performed By: #### A DIFF, CBC, ANEU, GFR, BMP #### [address] [address] BMPon 08-26-2024 BUN/Creatinine Ratio 35.1 ratio High 10.0-22.0 [facility] Comment on above: Performed By: #### A DIFF, CBC, ANEU, GFR, BMP #### [address] [address] Calcium [Mass/Vol] 9.8 mg/dL Normal 8.7-10.4 [facility] Comment on above: Performed By: #### A DIFF, CBC, ANEU, GFR, BMP #### [address] [address] Chloride [Moles/Vol] 98 mmol/L Normal 98-110 [facility] Comment on above: Performed By: #### A DIFF, CBC, ANEU, GFR, BMP #### [address] [address] CO2 [Moles/Vol] 25 mmol/L Normal 22-32 [facility] Comment on above: Performed By: #### A DIFF, CBC, ANEU, GFR, BMP #### [address] [address] Creatinine [Mass/Vol] 0.97 mg/dL Normal 0.50-1.20 [facility] Comment on above: Result Comment: Test ing performed on [place] [employer] analyzer using enzymatic creatinine methodology. Performed By: #### A DIFF, CBC, ANEU, GFR, BMP #### [address] [address] Electrolyte Balance 12.0 mEq/L Normal 4.0-15.0 [facility] Comment on above: Performed By: #### A DIFF, CBC, ANEU, GFR, BMP #### [address] [address] Glucose [Mass/Vol] 160 mg/dL High 82-115 [facility] Comment on above: Performed By: #### A DIFF, CBC, ANEU, GFR, BMP #### [place] [id number] Potassium [Moles/Vol] 4.7 mmol/L Normal 3.5-5.0 [facility] Comment on above: Result Comment: Spec imen slightly hemolyzed. Performed By: #### A DIFF, CBC, ANEU, GFR, BMP #### [place] [address] Sodium [Moles/Vol] 135 mmol/L Low 136-145 [facility] Comment on above: Performed By: #### A DIFF, CBC, ANEU, GFR, BMP #### [place] [address] Urea nitrogen [Mass/Vol] 34.0 mg/dL High 8.0-22.0 [facility] Comment on above: Performed By: #### A DIFF, CBC, ANEU, GFR, BMP #### [place] [address] CBCon 08-26-2024 Erythrocyte distribution width (RBC) [Ratio] 14.0 % Normal 11.5-15.5 [facility] Comment on above: Performed By: #### A DIFF, CBC, ANEU, GFR, BMP #### [place] [address] Hematocrit (Bld) [Volume fraction] 41.0 % Normal 34.0-46.0 [facility] Comment on above: Performed By: #### A DIFF, CBC, ANEU, GFR, BMP #### [place] [address] Hgb 13.4 G/dL Normal 12.0-16.0 [facility] Comment on above: Performed By: #### A DIFF, CBC, ANEU, GFR, BMP #### [place] [address] MCH (RBC) [Entitic mass] 30.0 pg Normal 27.0-33.0 [facility] Comment on above: Performed By: #### A DIFF, CBC, ANEU, GFR, BMP #### [place] [id number] MCHC 32.7 G/dL Normal 32.0-36.0 [facility] Comment on above: Performed By: #### A DIFF, CBC, ANEU, GFR, BMP #### [address] [address] MCV (RBC) [Entitic vol] 91.9 fL Normal 80.0-99.0 A [facility] Comment on above: Performed By: #### A DIFF, CBC, ANEU, GFR, BMP #### [address] [address] Platelet 297 10 3/mcL Normal 150-450 [facility] Comment on above: Performed By: #### A DIFF, CBC, ANEU, GFR, BMP #### [place] [address] Platelet mean volume (Bld) [Entitic vol] 11.0 fL High 6.6-10.5 [facility] Comment on above: Performed By: #### A DIFF, CBC, ANEU, GFR, BMP #### [place] [address] RBC 4.46 10 6/mcL Normal 4.10-5.30 [facility] Comment on above: Performed By: #### A DIFF, CBC, ANEU, GFR, BMP #### [address] [address] WBC 8.3 10 3/mcL Normal 4.5-10.8 [facility] Comment on above: Performed By: #### A DIFF, CBC, ANEU, GFR, BMP #### [place] [address] LABORATORYOrdered By: SYSTEM SYSTEM on 08-26-2024 Basophils (Bld) [#/Vol] 0.1 103/mcL Normal 0.0 - 0.3 10^3/mcL AH Workflow SS Basophils/100 WBC (Bld) 1.0 % Normal 0.0 - 2.5 % AH Workflow SS Calcium [Mass/Vol] 9.8 mg/dL Normal 8.7 - 10. 4 mg/dL AH ADM SS Chloride [Moles/Vol] 98 mmol/L Normal 98 - 11 0 mEq/L AH ADM SS CO2 [Moles/Vol] 25 mmol/L Normal 22 - 32 mEq/L ADM SS Creatinine [Mass/Vol] 0.97 mg/dL Normal 0.50 - 1.20 mg/dL ADM SS Comment on above: Interpretive Data: T esting performed on [place] [employer] analyzer using enzymatic creatinine methodology. Electrolyte Balance 12.0 mEq/L Normal 4.0 - 15 .0 mEq/L ADM SS Eosinophils (Bld) [#/Vol] 0.3 103/mcL Normal 0.0 - 0.7 10^3/mcL Workflow SS Eosinophils/100 WBC (Bld) 4.2 % Normal 0.0 - 6.0 % Workflow SS Erythrocyte distribution width (RBC) [Ratio] 14.0 % Normal 11.5 - 15.5 % Workflow SS Estimated Glomerular Filtration Rate 59 [...] 41.0 % Normal 34.0 - 46.0 % Workflow SS Hemoglobin (Bld) [Mass/Vol] 13.4 G/dL Normal 12.0 - 16.0 G/dL Workflow SS Lymphocytes (Bld) [#/Vol] 2.2 103/mcL Normal 0.9 - 4.3 10^3/mcL Workflow SS Lymphocytes/100 WBC (Bld) 26.3 % Normal 20.0 - 40.0 % Workflow SS MCH (RBC) [Entitic mass] 30.0 pg Normal 27.0 - 33.0 pg Workflow SS MCHC 32.7 G/dL Normal 32.0 [...] SS XR HAND AND WRIST [address] [facility] 08-25-2024 XR HAND AND WRIST 6 [...] Sign Date: 08/25/2024 2:27:26 PM Ordering Provider: [facility] MAIN XR HUMERUS MINIMUM 2 VIEWS L EFTon 08-25-2024 XR HUMERUS MINIMUM 2 VIEWS LEFT [...] Sign Date: 08/25/2024 2:26:11 PM Ordering Provider: [facility] MAIN XR SHOULDER MINIMUM 2 VIEWS LEFTon [...] 08/25/2024 2:26:45 PM Ordering Provider: JACKLYN LINDSEY [facility] MAIN LABORATORYOrdered By: Kala lux on 08-23-2024 Glucose [Mass/Vol] 278 mg/dL [facility] Work Phone: LABORATORYOrdered By: Kala lux on 08-22-2024 Glucose [Mass/Vol] 320 mg/dL [facility] Work Phone: A1Con 08-21-2024 Glucose [Mass/Vol] 194 mg/dL Normal [facility] Comment on above: Result Comment: Nancy mated Average Glucose calculated by equation ((28.7xA1C)-46.7) Estimated average glucose (eAG) is a calculated value from Hemoglobin A1C and is ocean import representative of the average blood glucose level in the last 2-3 month period. Normal range: less than 114 mg/dL Performed By: #### A 1C #### [place] [address] HbA1c (Bld) [Mass fraction] 8.4 % High 4.0-6.0 [facility] Comment on above: Performed By: #### A 1C #### [place] [address] LABORATORYOrdered By: SYSTEM SYSTEM on 08-21-2024 Glucose [Mass/Vol] 194 mg/dL Invalid Interpretation Code Auto Chem SS Comment on above: Interpretive Data: E stimated average glucose (eAG) is a calculated value from Hemoglobin A1C and is ocean import representative of the average blood glucose level in the last 2-3 month period. Normal range: less than 114 mg/dL HbA1c (Bld) [Mass fraction] 8.4 % High 4.0 - 6.0 % Auto Chem SS .Auto Diffon 08-20-2024 Basophil, Absolute 0.1 10 3/mcL Normal 0.0-0.3 [facility] Comment on above: Performed By: #### B MP, ADIFF, CBC, GFR, ANEU #### [place] [id number] Basophils/100 WBC (Bld) 1.1 % Normal 0.0-2.5 A [facility] Comment on above: Performed By: #### B MP, ADIFF, CBC, GFR, ANEU #### [address] [address] Eosinophil, Absolute 0.3 10 3/mcL Normal 0.0-0.7 [facility] Comment on above: Performed By: #### B MP, ADIFF, CBC, GFR, ANEU #### [address] [address] Eosinophils/100 WBC (Bld) 3.6 % Normal 0.0-6.0 [facility] Comment on above: Performed By: #### B MP, ADIFF, CBC, GFR, ANEU #### [address] [address] Lymphocyte, Absolute 1.7 10 3/mcL Normal 0.9-4.3 [facility] Comment on above: Performed By: #### B MP, ADIFF, CBC, GFR, ANEU #### [address] [address] Lymphocytes/100 WBC (Bld) 20.8 % Normal 20.0-40.0 [facility] Comment on above: Performed By: #### B MP, ADIFF, CBC, GFR, ANEU #### [address] [address] Monocyte, Absolute 0.9 10 3/mcL Normal 0.1-1.4 [facility] Comment on above: Performed By: #### B MP, ADIFF, CBC, GFR, ANEU #### [address] [address] Monocytes/100 WBC (Bld) 11.4 % Normal 2.0-13.0 [facility] Comment on above: Performed By: #### B MP, ADIFF, CBC, GFR, ANEU #### [address] [address] Neutrophils/100 WBC (Bld) 63.1 % Normal 50.0-75.0 [facility] Comment on above: Performed By: #### B MP, ADIFF, CBC, GFR, ANEU #### [address] [address] .GFRon 08-20-2024 Estimated Glomerular Filtration Rate 55 ml/min/1.73sqm Normal [facility] Comment on above: Result Comment: [...] A DIFF, CBC, ANEU, GFR, BMP #### [place] [address] .NEUABSon 08-20-2024 Neutrophil, Absolute 5.1 10 3/mcL Normal 2.3-8.1 [facility] Comment on above: Performed By: #### B MP, ADIFF, CBC, GFR, ANEU #### [place] [address] BMPon 08-20-2024 BUN/Creatinine Ratio 29.8 ratio High 10.0-22.0 [facility] Comment on above: Performed By: #### B MP, ADIFF, CBC, GFR, ANEU #### [place] [id number] Calcium [Mass/Vol] 9.8 mg/dL Normal 8.7-10.4 [facility] Comment on above: Performed By: #### B MP, ADIFF, CBC, GFR, ANEU #### [place] [id number] Chloride [Moles/Vol] 95 mmol/L Low 98-110 [facility] Comment on above: Performed By: #### B MP, ADIFF, CBC, GFR, ANEU #### [place] [id number] CO2 [Moles/Vol] 34 mmol/L High 22-32 [facility] Comment on above: Performed By: #### B MP, ADIFF, CBC, GFR, ANEU #### [address] [address] Creatinine [Mass/Vol] 1.04 mg/dL Normal 0.50-1.20 [facility] Comment on above: Result Comment: Test ing performed on [place] [employer] analyzer using enzymatic creatinine methodology. Performed By: #### B MP, ADIFF, CBC, GFR, ANEU #### [place] [id number] Electrolyte Balance 5.0 mEq/L Normal 4.0-15.0 [facility] Comment on above: Performed By: #### B MP, ADIFF, CBC, GFR, ANEU #### [address] [address] Glucose [Mass/Vol] 244 mg/dL High 82-115 [facility] Comment on above: Performed By: #### B MP, ADIFF, CBC, GFR, ANEU #### [place] [id number] Potassium [Moles/Vol] 4.8 mmol/L Normal 3.5-5.0 [facility] Comment on above: Result Comment: Spec imen slightly hemolyzed. Performed By: #### B MP, ADIFF, CBC, GFR, ANEU #### [address] [address] Sodium [Moles/Vol] 134 mmol/L Low 136-145 [facility] Comment on above: Performed By: #### B MP, ADIFF, CBC, GFR, ANEU #### [address] [address] Urea nitrogen [Mass/Vol] 31.0 mg/dL High 8.0-22.0 [facility] Comment on above: Performed By: #### B MP, ADIFF, CBC, GFR, ANEU #### [address] [address] CBCon 08-20-2024 Erythrocyte distribution width (RBC) [Ratio] 14.0 % Normal 11.5-15.5 [facility] Comment on above: Performed By: #### B MP, ADIFF, CBC, GFR, ANEU #### [place] [address] Hematocrit (Bld) [Volume fraction] 41.9 % Normal 34.0-46.0 [facility] Comment on above: Performed By: #### B MP, ADIFF, CBC, GFR, ANEU #### [place] [address] Hgb 13.6 G/dL Normal 12.0-16.0 [facility] Comment on above: Performed By: #### B MP, ADIFF, CBC, GFR, ANEU #### [place] [address] MCH (RBC) [Entitic mass] 29.7 pg Normal 27.0-33.0 [facility] Comment on above: Performed By: #### B MP, ADIFF, CBC, GFR, ANEU #### [place] [address] MCHC 32.4 G/dL Normal 32.0-36.0 [facility] Comment on above: Performed By: #### B MP, ADIFF, CBC, GFR, ANEU #### [place] [address] MCV (RBC) [Entitic vol] 91.5 fL Normal 80.0-99.0 [facility] Comment on above: Performed By: #### B MP, ADIFF, CBC, GFR, ANEU #### [place] [address] Platelet 301 10 3/mcL Normal 150-450 [facility] Comment on above: Performed By: #### B MP, ADIFF, CBC, GFR, ANEU #### [place] [address] Platelet mean volume (Bld) [Entitic vol] 11.0 fL High 6.6-10.5 [facility] Comment on above: Performed By: #### B MP, ADIFF, CBC, GFR, ANEU #### [place] [address] RBC 4.58 10 6/mcL Normal 4.10-5.30 [facility] Comment on above: Performed By: #### B MP, ADIFF, CBC, GFR, ANEU #### [address] [address] WBC 8.1 10 3/mcL Normal 4.5-10.8 [facility] Comment on above: Performed By: #### B MP, ADIFF, CBC, GFR, ANEU #### [address] [address] LABORATORYOrdered By: SYSTEM SYSTEM on 08-20-2024 Basophils [...] above: Interpretive Data: T esting performed on [place] [employer] analyzer using enzymatic creatinine methodology. Electrolyte Balance 5.0 mEq/L Normal 4.0 - 15 .0 mEq/L ADM SS Eosinophils (Bld) [#/Vol] 0.3 103/mcL Normal 0.0 - 0.7 10^3/mcL Workflow SS Eosinophils/100 WBC (Bld) 3.6 % [...] 4.8 mmol/L Normal 3.5 - 5.0 mEq/L ADM SS Comment on above: Result Comment: [...] 08/18/2024 3:14:15 PM Ordering Provider: NANDO Anderson [facility] .Auto Diffon 08-16-2024 Basophil, Absolute 0.1 10 3/mcL Normal 0.0-0.3 [facility] Comment on above: Performed By: #### A DIFF, CBC, ANEU, GFR, BMP #### [address] [address] Basophils/100 WBC (Bld) 0.7 % Normal 0.0-2.5 [facility] Comment on above: Performed By: #### A DIFF, CBC, ANEU, GFR, BMP #### [address] [address] Eosinophil, Absolute 0.3 10 3/mcL Normal 0.0-0.7 [facility] Comment on above: Performed By: #### A DIFF, CBC, ANEU, GFR, BMP #### [address] [address] Eosinophils/100 WBC (Bld) 2.1 % Normal 0.0-6.0 [facility] Comment on above: Performed By: #### A DIFF, CBC, ANEU, GFR, BMP #### [address] [address] Lymphocyte, Absolute 1.9 10 3/mcL Normal 0.9-4.3 [facility] Comment on above: Performed By: #### A DIFF, CBC, ANEU, GFR, BMP #### [address] [address] Lymphocytes/100 WBC (Bld) 14.8 % Low 20.0-40.0 [facility] Comment on above: Performed By: #### A DIFF, CBC, ANEU, GFR, BMP #### [address] [address] Monocyte, Absolute 1.2 10 3/mcL Normal 0.1-1.4 [facility] Comment on above: Performed By: #### A DIFF, CBC, ANEU, GFR, BMP #### [address] [address] Monocytes/100 WBC (Bld) 9.8 % Normal 2.0-13.0 [facility] Comment on above: Performed By: #### A DIFF, CBC, ANEU, GFR, BMP #### [address] [address] Neutrophils/100 WBC (Bld) 72.6 % Normal 50.0-75.0 [facility] Comment on above: Performed By: #### A DIFF, CBC, ANEU, GFR, BMP #### [address] [address] .GFRon 08-16-2024 Estimated Glomerular Filtration Rate 58 ml/min/1.73sqm Normal [facility] Comment on above: Result Comment: [...] A DIFF, CBC, ANEU, GFR, BMP #### [address] [address] .NEUABSon 08-16-2024 Neutrophil, Absolute 9.2 10 3/mcL High 2.3-8.1 [facility] Comment on above: Performed By: #### A DIFF, CBC, ANEU, GFR, BMP #### [address] [address] BMPon 08-16-2024 BUN/Creatinine Ratio 34.3 ratio High 10.0-22.0 [facility] Comment on above: Performed By: #### A DIFF, CBC, ANEU, GFR, BMP #### [address] [address] Calcium [Mass/Vol] 9.0 mg/dL Normal 8.7-10.4 [facility] Comment on above: Performed By: #### A DIFF, CBC, ANEU, GFR, BMP #### [address] [address] Chloride [Moles/Vol] 100 mmol/L Normal 98-110 [facility] Comment on above: Performed By: #### A DIFF, CBC, ANEU, GFR, BMP #### [address] [address] CO2 [Moles/Vol] 30 mmol/L Normal 22-32 [facility] Comment on above: Performed By: #### A DIFF, CBC, ANEU, GFR, BMP #### [address] [address] Creatinine [Mass/Vol] 0.99 mg/dL Normal 0.50-1.20 [facility] Comment on above: Result Comment: Test ing performed on [employer] analyzer using enzymatic creatinine methodology. Performed By: #### A DIFF, CBC, ANEU, GFR, BMP #### [place] [id number] Electrolyte Balance 5.0 mEq/L Normal 4.0-15.0 [facility] Comment on above: Performed By: #### A DIFF, CBC, ANEU, GFR, BMP #### [address] [address] Glucose [Mass/Vol] 259 mg/dL High 82-115 [facility] Comment on above: Performed By: #### A DIFF, CBC, ANEU, GFR, BMP #### [place] [id number] Potassium [Moles/Vol] 5.0 mmol/L Normal 3.5-5.0 [facility] Comment on above: Performed By: #### A DIFF, CBC, ANEU, GFR, BMP #### [place] [id number] Sodium [Moles/Vol] 135 mmol/L Low 136-145 [facility] Comment on above: Performed By: #### A DIFF, CBC, ANEU, GFR, BMP #### [place] [address] Urea nitrogen [Mass/Vol] 34.0 mg/dL High 8.0-22.0 [facility] Comment on above: Performed By: #### A DIFF, CBC, ANEU, GFR, BMP #### [place] [id number] CBCon 08-16-2024 Erythrocyte distribution width (RBC) [Ratio] 13.7 % Normal 11.5-15.5 [facility] Comment on above: Performed By: #### A DIFF, CBC, ANEU, GFR, BMP #### [place] [id number] Hematocrit (Bld) [Volume fraction] 43.3 % Normal 34.0-46.0 [facility] Comment on above: Performed By: #### A DIFF, CBC, ANEU, GFR, BMP #### [place] [id number] Hgb 13.9 G/dL Normal 12.0-16.0 [facility] Comment on above: Performed By: #### A DIFF, CBC, ANEU, GFR, BMP #### [place] [address] MCH (RBC) [Entitic mass] 30.0 pg Normal 27.0-33.0 [facility] Comment on above: Performed By: #### A DIFF, CBC, ANEU, GFR, BMP #### [place] [address] MCHC 32.1 G/dL Normal 32.0-36.0 [facility] Comment on above: Performed By: #### A DIFF, CBC, ANEU, GFR, BMP #### [place] [address] MCV (RBC) [Entitic vol] 93.6 fL Normal 80.0-99.0 [facility] Comment on above: Performed By: #### A DIFF, CBC, ANEU, GFR, BMP #### [place] [address] Platelet 230 10 3/mcL Normal 150-450 [facility] Comment on above: Performed By: #### A DIFF, CBC, ANEU, GFR, BMP #### [place] [address] Platelet mean volume (Bld) [Entitic vol] 10.7 fL High 6.6-10.5 [facility] Comment on above: Performed By: #### A DIFF, CBC, ANEU, GFR, BMP #### [place] [address] RBC 4.63 10 6/mcL Normal 4.10-5.30 [facility] Comment on above: Performed By: #### A DIFF, CBC, ANEU, GFR, BMP #### [place] [address] WBC 12.7 10 3/mcL High 4.5-10.8 [facility] Comment on above: Performed By: #### A DIFF, CBC, ANEU, GFR, BMP #### [place] [address] LABORATORYOrdered By: Marily Panda on 08-16-2024 Blood Glucose Interventions Administered agent to decrease blood sugar (08/16/24 12:23 PM) [employer] Work Phone: Blood Glucose Interventions Retest (08/16/24 10:15 AM) [employer] Work Phone: Bacteria identified Cx Nom ( Bld)on 08-15-2024 Bacteria identified Cx Nom (Unsp spec) NO GROWTH DAY 5 OF 5 [facility] CARDIAC RHYTHMon 08-15-2024 [facility] CBC,PLATELETSon 08-15-2024 Erythrocyte distribution width (RBC) [Ratio] 13.4 % 10.8 - 14.9 % [facility] Hematocrit (Bld) [Volume fraction] 43.8 % 34.9 - 44.3 % [facility] Hemoglobin (Bld) [Mass/Vol] 13.5 g/dL 11.4 - 15.2 g/dL [facility] Interpretation and review of laboratory results Abnormal [facility] MCH (RBC) [Entitic mass] 28.9 pg 25.9 - 33.9 pg [facility] MCHC (RBC) [Mass/Vol] 30.8 g/dL Low 31.4 - 35.9 g/dL [facility] MCV (RBC) [Entitic vol] 93.8 fL 79.6 - 97.7 fL [facility] Platelet mean volume (Bld) [Entitic vol] 12 fL 8.5 - 12.2 fL [facility] Platelets (Bld) [#/Vol] 252 10*3/uL 150 - 393 K/uL [facility] RBC (Bld) [#/Vol] 4.67 10*6/uL [facility] WBC (Bld) [#/Vol] 11.94 10*3/uL High 3.99 - 11.19 K/uL [facility] Hematocrit (Bld) [Volume fraction] 43.8 % Normal 34.9-44.3 [facility] Comment on above: Performed By: #### X M #### [facility] (DEFAULT) [address] [address] Hemoglobin (Bld) [Mass/Vol] 13.5 g/dL Normal 11.4-15.2 [facility] Comment on above: Performed By: #### X M #### [facility] (DEFAULT) [address] [address] MCV (RBC) [Entitic vol] 93.8 fL Normal 79.6-97.7 [facility] Comment on above: Performed By: #### X M #### [facility] (DEFAULT) [address] [address] Mean Cell Hgb 28.9 pg Normal 25.9-33.9 [facility] Comment on above: Performed By: #### X M #### [facility] (DEFAULT) [address] [address] Mean Cell Hgb Conc 30.8 g/dL Low 31.4-35.9 [facility] Comment on above: Performed By: #### X M #### [facility] (DEFAULT) [address] [address] Platelet mean volume (Bld) [Entitic vol] 12.0 fL Normal 8.5-12.2 [facility] Comment on above: Performed By: #### X M #### [facility] (DEFAULT) [address] [address] Platelets (Bld) [#/Vol] 252 10*3/uL Normal 150-393 [facility] Comment on above: Performed By: #### X M #### [facility] (DEFAULT) [address] [address] RBC (Bld) [#/Vol] 4.67 10*6/uL Normal 3.91-5.04 [facility] Comment on above: Performed By: #### X M #### [facility] (DEFAULT) [address] [place] [address] RBC Distribution 13.4 % Normal 10.8-14.9 [facility] Comment on above: Performed By: #### X M #### [facility] (DEFAULT) [address] [place] [address] WBC (Bld) [#/Vol] 11.94 10*3/uL High 3.99-11.19 [facility] Comment on above: Performed By: #### X M #### [facility] (DEFAULT) [address] [place] [address] CHEM 7 (LYTES,BUN,CREA,GLUC) on 08-15-2024 Anion gap [Moles/Vol] 16 mmol/L 7 - 17 mmol/L [facility] Chloride [Moles/Vol] 99 mmol/L 98 - 10 8 mmol/L [facility] CO2 [Moles/Vol] 25 mmol/L 21 - 31 mmol/L [facility] Creatinine [Mass/Vol] 1.27 mg/dL High 0.50 - 1.20 mg/dL [facility] eGFR, CKD-EPI, Female 43 Low - PINF [facility] Glucose [Mass/Vol] 214 mg/dL High 70 - 179 mg/dL [facility] Interpretation and review of laboratory results Abnormal [facility] Osmolality Calc [Osmolality] 306 High [facility] Potassium [Moles/Vol] 4.8 mmol/L 3.5 - 5.0 mmol/L [facility] Sodium [Moles/Vol] 135 mmol/L 135 - 145 mmol/L [facility] Urea nitrogen [Mass/Vol] 51 mg/dL High 7 - 25 mg/dL [facility] Urea nitrogen/Creatinine [Mass ratio] 40 mg/mg [facility] Anion gap [Moles/Vol] 16 mmol/L Normal 7-17 [facility] Comment on above: Performed By: #### [facility] #### [facility] (DEFAULT) [address] [place] [address] Chloride [Moles/Vol] 99 mmol/L Normal 98-108 [facility] Comment on above: Performed By: #### H EMO #### [facility] (DEFAULT) [address] [place] [address] CO2 [Moles/Vol] 25 mmol/L Normal 21-31 [facility] Comment on above: Performed By: #### H EMOGC #### [facility] (DEFAULT) [address] [place] [address] Creatinine [Mass/Vol] 1.27 mg/dL High 0.50-1.20 [facility] Comment on above: Performed By: #### [facility] #### [facility] (DEFAULT) [address] [place] [address] GFR/1.73 sq M.predicted among non-blacks MDRD (S/P/Bld) [Vol rate/Area] 43 mL/min/{1.73_m2} Low >=60 [facility] Comment on above: Result Comment: Repo rted eGFR is based on the CKD-EPI 2020 equation using creatinine, age, and sex. Performed By: #### [facility] #### [place] [facility] (DEFAULT) [address] [place] [id number] Glucose [Mass/Vol] 214 mg/dL High Nonfastin -179 mg/dL; Fastin-99 [facility] Comment on above: Performed By: #### H EMOGC #### [facility] (DEFAULT) [address] [place] [id number] Osmolality [Osmolality] 306 mosm/kg High 278-305 [facility] Comment on above: Performed By: #### H EMOGC #### [facility] (DEFAULT) [address] [address] Potassium [Moles/Vol] 4.8 mmol/L Normal 3.5-5.0 [facility] Comment on above: Performed By: #### H EMOGC #### [facility] (DEFAULT) [address] [place] [address] Sodium [Moles/Vol] 135 mmol/L Normal 135-145 [facility] Comment on above: Performed By: #### H EMOGC #### [facility] (DEFAULT) [address] [place] [address] Urea nitrogen [Mass/Vol] 51 mg/dL High 7-25 [facility] Comment on above: Performed By: #### H EMOGC #### [facility] (DEFAULT) [address] [place] [address] Urea nitrogen/Creatinine [Mass ratio] 40 mg/mg Normal [facility] Comment on above: Performed By: #### H EMO #### [facility] (DEFAULT) [address] [place] [address] GLUCOSE POCon 08-15-2024 Glucose [Mass/Vol] 190 mg/dL High 70 - 179 mg/dL [facility] [facility] Interpretation and review of laboratory results Abnormal [facility] POC Sample Type CAPBL [facility] Glucose [Mass/Vol] 146 mg/dL 70 - 179 mg/dL [facility] POC Sample Type CAPBL [facility] Glucose [Mass/Vol] 215 mg/dL High 70 - 179 mg/dL [facility] Interpretation and review of laboratory results Abnormal [facility] POC Sample Type CAPBL [facility] MAGNESIUMon 08-15-2024 Interpretation and review of laboratory results Normal [facility] Magnesium [Mass/Vol] 1.6 mg/dL 1.6 - 2 .6 mg/dL [facility] Magnesium [Mass/Vol] 1.6 mg/dL Normal 1.6-2.6 [facility] Comment on above: Performed By: #### H EMOGC #### [facility] (DEFAULT) [address] [address] No Panel Informationon 08-15 [facility] CBC,PLATELETSon 08-14-2024 Erythrocyte distribution width (RBC) [Ratio] 13.4 % 10.8 - 14.9 % [facility] Hematocrit (Bld) [Volume fraction] 47.9 % High 34.9 - 44.3 % [facility] Hemoglobin (Bld) [Mass/Vol] 14.3 g/dL 11.4 - 15.2 g/dL [facility] Interpretation and review of laboratory results Abnormal [facility] MCH (RBC) [Entitic mass] 29.3 pg 25.9 - 33.9 pg [facility] MCHC (RBC) [Mass/Vol] 29.9 g/dL Low 31.4 - 35.9 g/dL [facility] MCV (RBC) [Entitic vol] 98.2 fL High 79.6 - 97.7 fL [facility] Platelet mean volume (Bld) [Entitic vol] 11.3 fL 8.5 - 12.2 fL [facility] Platelets (Bld) [#/Vol] 229 10*3/uL 150 - 393 K/uL [facility] RBC (Bld) [#/Vol] 4.88 10*6/uL [facility] WBC (Bld) [#/Vol] 12.14 10*3/uL High 3.99 - 11.19 K/uL [facility] Hematocrit (Bld) [Volume fraction] 47.9 % High 34.9-44.3 [facility] Comment on above: Performed By: #### X M #### [facility] (DEFAULT) [address] [address] Hemoglobin (Bld) [Mass/Vol] 14.3 g/dL Normal 11.4-15.2 [facility] Comment on above: Performed By: #### X M #### [facility] (DEFAULT) [address] [place] [address] MCV (RBC) [Entitic vol] 98.2 fL High 79.6-97.7 [facility] Comment on above: Performed By: #### X M #### [facility] (DEFAULT) [address] [place] [address] Mean Cell Hgb 29.3 pg Normal 25.9-33.9 [facility] Comment on above: Performed By: #### X M #### [facility] (DEFAULT) [address] [place] [address] Mean Cell Hgb Conc 29.9 g/dL Low 31.4-35.9 [facility] Comment on above: Performed By: #### X M #### [facility] (DEFAULT) [address] [place] [address] Platelet mean volume (Bld) [Entitic vol] 11.3 fL Normal 8.5-12.2 [facility] Comment on above: Performed By: #### X M #### [facility] (DEFAULT) [address] [place] [address] Platelets (Bld) [#/Vol] 229 10*3/uL Normal 150-393 [facility] Comment on above: Performed By: #### X M #### [facility] (DEFAULT) [address] [place] [address] RBC (Bld) [#/Vol] 4.88 10*6/uL Normal 3.91-5.04 [facility] Comment on above: Performed By: #### X M #### [facility] (DEFAULT) [address] [place] [address] RBC Distribution 13.4 % Normal 10.8-14.9 [facility] Comment on above: Performed By: #### X M #### [facility] (DEFAULT) [address] [place] [address] WBC (Bld) [#/Vol] 12.14 10*3/uL High 3.99-11.19 [facility] Comment on above: Performed By: #### X M #### [facility] (DEFAULT) [address] [place] [address] CHEM 7 (LYTES,BUN,CREA,GLUC) on 08-14-2024 Anion gap [Moles/Vol] 16 mmol/L 7 - 17 mmol/L [facility] Chloride [Moles/Vol] 101 mmol/L 98 - 10 8 [facility] CO2 [Moles/Vol] 23 mmol/L 21 - 31 mmol/L [facility] Creatinine [Mass/Vol] 1.15 mg/dL 0.50 - 1.20 mg/dL [facility] eGFR, CKD-EPI, Female 48 Low - PINF [facility] Glucose [Mass/Vol] 208 mg/dL High 70 - 179 mg/dL [facility] Interpretation and review of laboratory results Abnormal [facility] Osmolality Calc [Osmolality] 304 [facility] Potassium [Moles/Vol] 4.7 mmol/L 3.5 - 5.0 mmol/L [facility] Sodium [Moles/Vol] 135 mmol/L 135 - 145 mmol/L [facility] Urea nitrogen [Mass/Vol] 47 mg/dL High 7 - 25 mg/dL [facility] Urea nitrogen/Creatinine [Mass ratio] 41 mg/mg [facility] Anion gap [Moles/Vol] 16 mmol/L Normal 7-17 [facility] Comment on above: Performed By: #### B LDCULT #### [facility] (DEFAULT) [address] [place] [address] Chloride [Moles/Vol] 101 mmol/L Normal 98-108 [facility] Comment on above: Performed By: #### B LDCULT #### [facility] (DEFAULT) [address] [place] [address] CO2 [Moles/Vol] 23 mmol/L Normal 21-31 [facility] Comment on above: Performed By: #### B LDCULT #### [facility] (DEFAULT) [address] [place] [address] Creatinine [Mass/Vol] 1.15 mg/dL Normal 0.50-1.20 [facility] Comment on above: Performed By: #### B LDCULT #### [facility] (DEFAULT) [address] [place] [address] GFR/1.73 sq M.predicted among non-blacks MDRD (S/P/Bld) [Vol rate/Area] 48 mL/min/{1.73_m2} Low >=60 [facility] Comment on above: Result Comment: Repo rted eGFR is based on the CKD-EPI 2020 equation using creatinine, age, and sex. Performed By: #### B LDCULT #### [facility] (DEFAULT) [address] [place] [address] Glucose [Mass/Vol] 208 mg/dL High Nonfastin -179 mg/dL; Fastin-99 [facility] Comment on above: Performed By: #### B LDCULT #### [facility] (DEFAULT) [address] [place] [address] Osmolality [Osmolality] 304 mosm/kg Normal 278-305 [facility] Comment on above: Performed By: #### B LDCULT #### [facility] (DEFAULT) [address] [place] [address] Potassium [Moles/Vol] 4.7 mmol/L Normal 3.5-5.0 [facility] Comment on above: Performed By: #### B LDCULT #### [facility] (DEFAULT) [address] [place] [address] Sodium [Moles/Vol] 135 mmol/L Normal 135-145 [facility] Comment on above: Performed By: #### B LDCULT #### [facility] (DEFAULT) [address] [place] [address] Urea nitrogen [Mass/Vol] 47 mg/dL High 7-25 [facility] Comment on above: Performed By: #### B LDCULT #### [facility] (DEFAULT) [address] [place] [address] Urea nitrogen/Creatinine [Mass ratio] 41 mg/mg Normal [facility] Comment on above: Performed By: #### B LDCULT #### [facility] (DEFAULT) [address] [place] [address] GLUCOSE POCon 08-14-2024 Glucose [Mass/Vol] 204 mg/dL High 70 - 179 mg/dL [facility] Interpretation and review of laboratory results Abnormal [facility] POC Sample Type CAPBL [facility] Glucose [Mass/Vol] 264 mg/dL High 70 - 179 mg/dL [facility] Interpretation and review of laboratory results Abnormal [facility] POC Sample Type CAPBL [facility] Glucose [Mass/Vol] 189 mg/dL High 70 - 179 mg/dL [facility] Interpretation and review of laboratory results Abnormal [facility] POC Sample Type CAPBL [facility] MAGNESIUMon 08-14-2024 Interpretation and review of laboratory results Normal [facility] Magnesium [Mass/Vol] 1.6 mg/dL 1.6 - 2 .6 mg/dL [facility] Magnesium [Mass/Vol] 1.6 mg/dL Normal 1.6-2.6 [facility] Comment on above: Performed By: #### B LDCULT #### [facility] (DEFAULT) [address] [place] [address] No Panel Informationon 08-14 [facility] CBC,PLATELETSon 08-13-2024 Erythrocyte distribution width (RBC) [Ratio] 13.4 % 10.8 - 14.9 % [facility] Hematocrit (Bld) [Volume fraction] 45.7 % High 34.9 - 44.3 % [facility] Hemoglobin (Bld) [Mass/Vol] 14.3 g/dL 11.4 - 15.2 g/dL [facility] Interpretation and review of laboratory results Abnormal [facility] MCH (RBC) [Entitic mass] 29.5 pg 25.9 - 33.9 pg [facility] MCHC (RBC) [Mass/Vol] 31.3 g/dL Low 31.4 - 35.9 g/dL [facility] MCV (RBC) [Entitic vol] 94.2 fL 79.6 - 97.7 fL [facility] Platelet mean volume (Bld) [Entitic vol] 11.7 fL 8.5 - 12.2 fL [facility] Platelets (Bld) [#/Vol] 245 10*3/uL 150 - 393 K/uL [facility] RBC (Bld) [#/Vol] 4.85 10*6/uL [facility] WBC (Bld) [#/Vol] 12.02 10*3/uL High 3.99 - 11.19 K/uL [facility] Hematocrit (Bld) [Volume fraction] 45.7 % High 34.9-44.3 [facility] Comment on above: Performed By: #### [facility] #### [facility] (DEFAULT) [address] [place] [address] Hemoglobin (Bld) [Mass/Vol] 14.3 g/dL Normal 11.4-15.2 [facility] Comment on above: Performed By: #### H EMO #### [facility] (DEFAULT) [address] [place] [address] MCV (RBC) [Entitic vol] 94.2 fL Normal 79.6-97.7 [facility] Comment on above: Performed By: #### H EMOGC #### [facility] (DEFAULT) [address] [place] [address] Mean Cell Hgb 29.5 pg Normal 25.9-33.9 [facility] Comment on above: Performed By: #### H EMOGC #### [facility] (DEFAULT) [address] [address] Mean Cell Hgb Conc 31.3 g/dL Low 31.4-35.9 [facility] Comment on above: Performed By: #### H EMOGC #### [facility] (DEFAULT) [address] [address] Platelet mean volume (Bld) [Entitic vol] 11.7 fL Normal 8.5-12.2 [facility] Comment on above: Performed By: #### H EMOGC #### [facility] (DEFAULT) [address] [address] Platelets (Bld) [#/Vol] 245 10*3/uL Normal 150-393 [facility] Comment on above: Performed By: #### H EMOGC #### [facility] (DEFAULT) [address] [address] RBC (Bld) [#/Vol] 4.85 10*6/uL Normal 3.91-5.04 [facility] Comment on above: Performed By: #### H EMOGC #### [facility] (DEFAULT) [address] [address] RBC Distribution 13.4 % Normal 10.8-14.9 [facility] Comment on above: Performed By: #### H EMOGC #### [facility] (DEFAULT) [address] [address] WBC (Bld) [#/Vol] 12.02 10*3/uL High 3.99-11.19 [facility] Comment on above: Performed By: #### H EMOGC #### [facility] (DEFAULT) [address] [address] CHEM 7 (LYTES,BUN,CREA,GLUC) on 08-13-2024 Anion gap [Moles/Vol] 15 mmol/L 7 - 17 mmol/L [facility] Chloride [Moles/Vol] 104 mmol/L 98 - 10 8 mmol/L [facility] CO2 [Moles/Vol] 23 mmol/L 21 - 31 mmol/L [facility] Creatinine [Mass/Vol] 1.18 mg/dL 0.50 - 1.20 mg/dL [facility] eGFR, CKD-EPI, Female 47 Low - PINF [facility] Glucose [Mass/Vol] 225 mg/dL High 70 - 179 mg/dL [facility] Interpretation and review of laboratory results Abnormal [facility] Osmolality Calc [Osmolality] 311 High [facility] Potassium [Moles/Vol] 4.6 mmol/L 3.5 - 5.0 mmol/L [facility] Sodium [Moles/Vol] 137 mmol/L 135 - 145 mmol/L [facility] Urea nitrogen [Mass/Vol] 55 mg/dL High 7 - 25 mg/dL [facility] Urea nitrogen/Creatinine [Mass ratio] 47 mg/mg [facility] Anion gap [Moles/Vol] 15 mmol/L Normal 7-17 [facility] Comment on above: Performed By: #### [facility] #### [facility] (DEFAULT) [address] [place] [address] Chloride [Moles/Vol] 104 mmol/L Normal 98-108 [facility] Comment on above: Performed By: #### [facility] #### [facility] (DEFAULT) [address] [place] [address] CO2 [Moles/Vol] 23 mmol/L Normal 21-31 [facility] Comment on above: Performed By: #### [facility] #### [facility] (DEFAULT) [address] [place] [address] Creatinine [Mass/Vol] 1.18 mg/dL Normal 0.50-1.20 [facility] Comment on above: Performed By: #### [facility] #### [facility] (DEFAULT) [address] [place] [address] GFR/1.73 sq M.predicted among non-blacks MDRD (S/P/Bld) [Vol rate/Area] 47 mL/min/{1.73_m2} Low >=60 [facility] Comment on above: Result Comment: Repo rted eGFR is based on the CKD-EPI 2020 equation using creatinine, age, and sex. Performed By: #### H EMOGC #### [facility] (DEFAULT) [address] [place] [address] Glucose [Mass/Vol] 225 mg/dL High Nonfastin -179 mg/dL; Fastin-99 [facility] Comment on above: Performed By: #### H EMOGC #### [facility] (DEFAULT) [address] [place] [address] Osmolality [Osmolality] 311 mosm/kg High 278-305 [facility] Comment on above: Performed By: #### H EMOGC #### [facility] (DEFAULT) [address] [place] [address] Potassium [Moles/Vol] 4.6 mmol/L Normal 3.5-5.0 [facility] Comment on above: Performed By: #### H EMOGC #### [facility] (DEFAULT) [address] [place] [address] Sodium [Moles/Vol] 137 mmol/L Normal 135-145 [facility] Comment on above: Performed By: #### H EMOGC #### [facility] (DEFAULT) [address] [place] [address] Urea nitrogen [Mass/Vol] 55 mg/dL High 7-25 [facility] Comment on above: Performed By: #### H EMOGC #### [facility] (DEFAULT) [address] [place] [address] 8[address] Urea nitrogen/Creatinine [Mass ratio] 47 mg/mg Normal [facility] Comment on above: Performed By: #### H EMOGC #### [facility] (DEFAULT) [address] [place], [place] [id number] GLUCOSE POCon 08-13-2024 Glucose [Mass/Vol] 195 mg/dL High 70 - 179 mg/dL [facility] Interpretation and review of laboratory results Abnormal [facility]OC [facility] Glucose [Mass/Vol] 198 mg/dL High 70 - 179 mg/dL [facility] Interpretation and review of laboratory results Abnormal [facility] POC Sample Type CAPBL [facility] Glucose [Mass/Vol] 158 mg/dL 70 - 179 mg/dL [facility] POC Sample Type [facility] Glucose [Mass/Vol] 211 mg/dL High 70 - 179 mg/dL [facility] Interpretation and review of laboratory results Abnormal [facility] POC Sample Type [facility]BL [facility] Glucose [Mass/Vol] 240 mg/dL High 70 - 179 mg/dL [facility] Interpretation and review of laboratory results Abnormal [facility] POC Sample Type CAPBL [facility] MAGNESIUMon 08-13-2024 Interpretation and review of laboratory results Normal [facility] Magnesium [Mass/Vol] 1.8 mg/dL 1.6 - 2 .6 mg/dL [facility] Magnesium [Mass/Vol] 1.8 mg/dL Normal 1.6-2.6 [facility] Comment on above: Performed By: #### [facility] #### [facility] (DEFAULT) [address] [place] [address] No Panel Informationon 08-13 [facility] CBC,PLATELETSon 08-12-2024 Erythrocyte distribution width (RBC) [Ratio] 13.6 % 10.8 - 14.9 % [facility] Hematocrit (Bld) [Volume fraction] 45.1 % High 34.9 - 44.3 % [facility] Hemoglobin (Bld) [Mass/Vol] 14.3 g/dL 11.4 - 15.2 g/dL [facility] Interpretation and review of laboratory results Abnormal [facility] MCH (RBC) [Entitic mass] 29.7 pg 25.9 - 33.9 pg [facility] MCHC (RBC) [Mass/Vol] 31.7 g/dL 31.4 - 35.9 g/dL [facility] MCV (RBC) [Entitic vol] 93.6 fL 79.6 - 97.7 fL [facility] Platelet mean volume (Bld) [Entitic vol] 11.4 fL 8.5 - 12.2 fL [facility] Platelets (Bld) [#/Vol] 241 10*3/uL 150 - 393 K/uL [facility] RBC (Bld) [#/Vol] 4.82 10*6/uL [facility] WBC (Bld) [#/Vol] 14.32 10*3/uL High 3.99 - 11.19 K/uL [facility] Hematocrit (Bld) [Volume fraction] 45.1 % High 34.9-44.3 [facility] Comment on above: Performed By: #### [facility] #### [facility] (DEFAULT) [address] [address] Hemoglobin (Bld) [Mass/Vol] 14.3 g/dL Normal 11.4-15.2 [facility] Comment on above: Performed By: #### [facility] #### [facility] (DEFAULT) [address] [address] MCV (RBC) [Entitic vol] 93.6 fL Normal 79.6-97.7 [facility] Comment on above: Performed By: #### [facility] #### [facility] (DEFAULT) [address] [place] [address] Mean Cell Hgb 29.7 pg Normal 25.9-33.9 [facility] Comment on above: Performed By: #### H EMOGC #### [facility] (DEFAULT) [address] [place] [address] Mean Cell Hgb Conc 31.7 g/dL Normal 31.4-35.9 [facility] Comment on above: Performed By: #### H EMOGC #### [facility] (DEFAULT) [address] [place] [address] Platelet mean volume (Bld) [Entitic vol] 11.4 fL Normal 8.5-12.2 [facility] Comment on above: Performed By: #### H EMOGC #### [facility] (DEFAULT) [address] [place] [address] Platelets (Bld) [#/Vol] 241 10*3/uL Normal 150-393 [facility] Comment on above: Performed By: #### H EMOGC #### [facility] (DEFAULT) [address] [address] RBC (Bld) [#/Vol] 4.82 10*6/uL Normal 3.91-5.04 [facility] Comment on above: Performed By: #### H EMOGC #### [facility] (DEFAULT) [address] [place] [address] RBC Distribution 13.6 % Normal 10.8-14.9 [facility] Comment on above: Performed By: #### H EMOGC #### [facility] (DEFAULT) [address] [address] WBC (Bld) [#/Vol] 14.32 10*3/uL High 3.99-11.19 [facility] Comment on above: Performed By: #### H EMOGC #### [facility] (DEFAULT) [address] [place] [address] CHEM 7 (LYTES,BUN,CREA,GLUC) on 08-12-2024 Anion gap [Moles/Vol] 15 mmol/L 7 - 17 mmol/L [facility] Chloride [Moles/Vol] 104 mmol/L 98 - 10 8 mmol/L [facility] CO2 [Moles/Vol] 27 mmol/L 21 - 31 mmol/L [facility] Creatinine [Mass/Vol] 1.36 mg/dL High 0.50 - 1.20 mg/dL [facility] eGFR, CKD-EPI, Female 40 Low - PINF [facility] Glucose [Mass/Vol] 126 mg/dL 70 - 179 mg/dL [facility] Interpretation and review of laboratory results Abnormal [facility] Osmolality Calc [Osmolality] 313 High [facility] Potassium [Moles/Vol] 4.5 mmol/L 3.5 - 5.0 mmol/L [facility] Sodium [Moles/Vol] 141 mmol/L 135 - 145 mmol/L [facility] Urea nitrogen [Mass/Vol] 56 mg/dL High 7 - 25 mg/dL [facility] Urea nitrogen/Creatinine [Mass ratio] 41 mg/mg [facility] Anion gap [Moles/Vol] 15 mmol/L Normal 7-17 [facility] Comment on above: Performed By: #### T YPEC #### [facility] (DEFAULT) [address] [place] [address] Chloride [Moles/Vol] 104 mmol/L Normal 98-108 [facility] Comment on above: Performed By: #### T YPEC #### [facility] (DEFAULT) [address] [place] [address] CO2 [Moles/Vol] 27 mmol/L Normal 21-31 [facility] Comment on above: Performed By: #### T YPEC #### [facility] (DEFAULT) [address] [place] [address] Creatinine [Mass/Vol] 1.36 mg/dL High 0.50-1.20 [facility] Comment on above: Performed By: #### T YPEC #### [facility] (DEFAULT) [address] [address] GFR/1.73 sq M.predicted among non-blacks MDRD (S/P/Bld) [Vol rate/Area] 40 mL/min/{1.73_m2} Low >=60 [facility] Comment on above: Result Comment: Repo rted eGFR is based on the CKD-EPI 2020 equation using creatinine, age, and sex. Performed By: #### T YPEC #### [facility] (DEFAULT) [address] [address] Glucose [Mass/Vol] 126 mg/dL Normal Nonfastin -179 mg/dL; Fastin-99 [facility] Comment on above: Performed By: #### T YPEC #### [facility] (DEFAULT) [address] [address] Osmolality [Osmolality] 313 mosm/kg High 278-305 [facility] Comment on above: Performed By: #### T YPEC #### [facility] (DEFAULT) [address] [address] Potassium [Moles/Vol] 4.5 mmol/L Normal 3.5-5.0 [facility] Comment on above: Performed By: #### T YPEC #### [facility] (DEFAULT) [address] [address] Sodium [Moles/Vol] 141 mmol/L Normal 135-145 [facility] Comment on above: Performed By: #### T YPEC #### [facility] (DEFAULT) [address] [address] Urea nitrogen [Mass/Vol] 56 mg/dL High 7-25 [facility] Comment on above: Performed By: #### T YPEC #### [facility] (DEFAULT) [address] [address] Urea nitrogen/Creatinine [Mass ratio] 41 mg/mg Normal [facility] Comment on above: Performed By: #### T YPEC #### [facility] (DEFAULT) [address] [place] [address] GLUCOSE POCon 08-12-2024 Glucose [Mass/Vol] 231 mg/dL High 70 - 179 mg/dL [facility] Interpretation and review of laboratory results Abnormal [facility] POC Sample Type [facility]BL [facility] Glucose [Mass/Vol] 208 mg/dL High 70 - 179 mg/dL [facility] Interpretation and review of laboratory results Abnormal [facility] POC Sample Type CAPBL [facility] Glucose [Mass/Vol] 160 mg/dL 70 - 179 mg/dL [facility] POC Sample Type CAPBL [facility] Glucose [Mass/Vol] 107 mg/dL 70 - 179 mg/dL [facility] POC Sample Type CAPBL [facility] MAGNESIUMon 08-12-2024 Interpretation and review of laboratory results Normal [facility] Magnesium [Mass/Vol] 2.2 mg/dL 1.6 - 2 .6 mg/dL [facility] Magnesium [Mass/Vol] 2.2 mg/dL Normal 1.6-2.6 [facility] Comment on above: Performed By: #### T YPEC #### [facility] (DEFAULT) [address] [place] [address] No Panel Informationon 08-12 [facility] SURG PATH REQUESTOrdered By: Renae Glez on 08-12-2024 Case Report [facility] Clinical History [id number] [id number] 9YgmrQ3naXKDsEYuuEYUrGF xzbKIvFUg6OESbnUIzklCpR sIdSWKfrVPtwOI1DVEzKK1t otfsLKoaRPxiGXZdueH1DED ryBIoB7JlPGQiXE8ndkglEJ I6RMtdYRAuYOU3GvPpCACme 7Fghwz3WlRjtSc9m0czBONk CYOwlYyoq3nbKMO2ZJIdqZF wN1vxrH2nKZEiNU8uhszbg5 yuYWiwUGrzFDLapVS4phC1X GHvcATjO2YvyW8iICMyVIGc oqSmlUjojN8iRwQkNXwpReP xVu2VONdQTsMlCXOzm9HrQD GiFUCXeXDnwp4pcKV0ORBAy 64qMpZbRJAuqMMnuLQAnCD4 y8U8YfHsOj9uiJGdsYMhpFZ qyZW7w5P7DAVrk9FyLJArAj xwYXJ9 [facility] For Immediate Release to Patient's MyChart? Yes Yes [facility] Gross Description b4kjzBYpHHOtq0hbUBRd bGF uZzEwMzNcZnRuYmpcdWMxIH tccnRmMVxlcGljMTExMDVcY N0mwHbpwZf7pYznPEQgotQ7 zSLaPRdnn9syNUX9l5uquxf wRZAjTJeqFv2pvBVvlSsyJz QiKDTyJVt7pU11RGBedC0ss QRmYYpsmkGlBBAuP5EqEW1z RApifKFeAWA2kOfqYHWpinb iQwC8FAapNRNhwqraYGq1EE phZVZjfET4FJLnaYEfQ1MnD SZzFW4cxxh9OOX9BQleSXKb ChX4CDBbyZYoBJWdpYwhACo fi215QEA4ApDmKHPpnpQlvI ypfM0eCeWxYAYTdDEeb2OxO 9paNL7gqOVpdhUwMPk5QDGj aS1op70gHYAvz5Jryhu4PDp pJoPkKMGxH48jiETnpcQeEI dpdGggdGhlIHBhdGllbnQnc uLkXF8aACStVAMfC3Mdq5Kn k57ttvFyCpVuXpLdqNWgSJI mkmkiUdGnULfeIuQoDyo5DA IgVGhlIHNwZWNpbWVuIGlzI SFxz2yjlfU5PIOgOdhbm1Nw oMQoDOQmnbTnoNNmEJ0lMRE rynBsq5InUB4cTQDoqaVtWv NbL38mgqLrXP9pZVBhej6xz M3sRXTvTnRexCndy9VyNNRi gy6eKZCvYwO5gLF0ayZwEeO yP58xkQ1tF3VdJNIoz5LkCQ vuLC7rvX9oPgTfAWEfJRMnq LBvSPRaypAOBUDmPGKmAL2s yBj6XWxwKttQGCcbQlTxVCT 9YOJuse59LEQ4JqKrp5U9BM GzYfIyTRSjMP2ykPisZQRlH O2tHFFhC6xjpO1dmua0TdYl WKYfPxH3TXQqbfR7Awv9YDT oYIgir1xin2EsWQBoULl8nA awFnSeHTXst9drmoGuMiJvB PWjMVHoUDTtfPRuH570g8ac f0pjckLzlVN9OBWxZJL4MHk shxYdmcP1CJxhfOIsAeR8ZP hyjjVhEIjygbHbgfClPum6H CZbD671ERI8nAqfq9nlSFF0 CSOtTWOtPvHaIz5uyCExV39 4YVEpNKFFPPFzsKu2CNWwkr FqcpJmsQGUn164E381c3tsE AFldkGbjHsWgjglh7koC529 XHBhcGVydzEyMjQwXHBhcGV nsJB2YMIhAA3qvngvIYvpID xyFLHfucB0FXPlsEQjY2EsB TYbQV3nqtmoSDN1XVqeNFXt ITV9VwMzLFJux3Gzbak6GpX qng5czf68ZCV5d1McjLixSL U2YHE0KzOmUb7ldOZzCYSwA A4eQcLygJDeQELzxs33wEmu KKskdcXuaJ3zJfBvYRVfuNK lLHUjVM3bzYIeDVKrjS6usu xjXHBnYnJkcmhlYWRccGdic yBrBf8hvOpyDTQ4HBqmW0wj dX4wRsL5KFbeP1qgqJ0zLNn 8JPlqrOB5JXBksM7cAM0pvl jfb5myVYpfZQlnBAJphfH6z kK9GMSxpMVnE7AjpR0cIRGu VI8ifuyni2lyQBZ1YCeiRZG yNJO0YiTaMIDjy2Gnjja2Ge Pjs9QzfNNnRVfaL17sb023O JBcyfFlR5utaQGavehywDSr rhpfWPwwqrF2YYQrIDXcQSj uXGYxXGZzMjJcbGFuZzEwMz NcaGljaFxmMVxkYmNoXGYxX XzyE9qyGkUlUnQoXwDFop1a o0ClISRipbG9fZmhOVLcv9H lz9VgWlXLWPMsH1YgQE0kjM NaBCCvxc09 [facility] Microscopic Description y2lnfTHgEIYdgSJy ZjIyMDA hALXnl1idBHHozULxMrKkJm NcZnRuYmpcdWMxXGRlZmYwe 3nfs537vYOta8lzPHHjTeA9 xWJfHVCtjIAfH619GFEyRXl dz9wel4TdNCHplAGub0J8FJ EJdxblaBk2oNpkF76sp8D8M hxyL0jbOCKkHNZeH2GcYN5d WKOiLev0XVD7RRO4OLYpJLT hU6EmNL1xMCRqhPCgVBt5g4 iuhTahBBNxXLD1w8yyOLcww jKgIS6zdh6ltIn2g1piduSu ROJxWKPyzOJHQUOnT5YifVj kYo2tjZb7sLhnWixfESI2Bd x2GC4cws16qye6iXshPHVmp ckyIzU8OXzmMLEklukkHRk5 ACcnQNVddTI6ZVRmwTQpM7K eJAIqDL1xgni2OLL0EKgvWQ SfGsD9WPMbfDHyBSZqjYnuW Pggq727TYW8IpDhGM0jC9Dc u8H9wE6czWObYMWbtNLzYzG eKAQvsh7xiMBeAMnmi3NhNJ L1egA6xCPzkVMuFEJzBR23O dtao7UtZbhbWBN2CEKspuJl n3Emb4udHeLqnnGwL0jbF4F yZHJoZWFkXHBnYnJkcmZvb3 Mya6PevKKgxNi6u3jkVDGkY QKdeCoax2bgASS2UOYdQ8P6 eVQwc4npIJdfGGAofWZ3fcB 8JRVjgLJbO5DykE6lJZZwXD 6evyk2u2qpNBQ3RWreDLTiF nS3fjU5OJIteGQcNPPztFvf BVukx698NDS7ZpPlXSNqp4X eC8QzfEczE25peNanB09pBD AnsKudtE7hrKerdP4mRzSaA nMyNFxxbFxwbGFpblxmMVxm fiJfMSuivbssQAGzRBzjS5a gCrHfDTRevXwhQLtbm4CvTR XoTIXyBsCrDYPklSZps6Yzv 8ZaJtGeiLDtbP7qdCssedJ9 MDLdlRRnWq2bySTnKtRspAY yfQ== [facility] Pathologic Diagnosis b6ddeRVjNVGzrDByDLM wNVx ycnVuHDRjqFHkN6JaycvmPL ajZS4iNJ0eaFzfsPOzbDEtQ IXxGpOkd3fpm058lURio5bp XHVPhdgjzCr3m7gwWWPUgZ0 lw1y6dK94AQBbtA5vrOKsDY zeljWhQSgqxiBiuxLdDye3S RR0aGelAmjufHX2iDTtuXE6 YGdmy7SriLnonUrgJXZrYIR aJCV1Q9jvvTJ9zTUscBpwnD XzNH8rq4sjgCN5rwUmJUO1u HaxkPD6xYxpxodqr3ripKW3 cWA6OSirhCK5IYqhOxUcW0p vNTAxaR0tI56kP9urOIFziH jrODkiAICfmRA0BLX4KKCsl 1xsZXZlbHRleHRcJzAxXCdi Vkw1j5tgPBPtdT98gHSlonK 7fVxmMVxmczIwXGxpMzYwXG ZpMTgwfXtcbGlzdGxldmVsX RjaftTofrKpEzJfmMC0NZwn MgKeAzMreSD6ADciVjRvqFA 8IWkcjESaxIV1JJvamKE3PI v4LPo4LJrzIZmkGph7lFrwm NP5KYgqkK5fTFCpA83dFnXf UbViWS46CCpyd7TxSWXggZm iHHOzjU0qSpRfRLldafCnvc ZjbjIzXGxldmVsamMwXGxld bEsl4XlwiPkyNP6GGxvkiRk uET5yMzdDKGzM3S3Y713AHz gwsDkzsIbMjLsxoa3ERCcQP KdGnQ7o9jqbEU2sKZ8OKxak YG8KGliBaJpP3mtMEVktO0u B39uY5wvJWHhgQvmBChrHYO bvAJ4BPA7SRKfs5eeZOKeoP XjzDDaUrSnURqnDud2t3uhY GFdeX57nXFumzC3vAcyCAzp czIwfXtcbGlzdGxldmVsXGx olnLehkDqKpJflIC3BXfsAe CnXdNmvWO2PMcnMeDpbWT5B XezsNImtHF8FHqgmFL0FYa3 YYl5FTwzGGlaDxr4qFejgCU 6GAcpgO1nOTRkK16dOrMdEg NhHW85NEhpn6HfONIqvBocA QBfdD1mBfViYWnkbiCzxiPo bjIzXGxldmVsamMwXGxldmV kx2WstzQtkFU7YOddprRytJ E9vTnpVHYqC2K4W584XWeob fWkazTjObMlwrf5TGZzAAVd HtD3g3sumNH3vEN4LYppwMA 3LHyvTdRnZ4yeMIAmnK8hI7 0oO2uzEQUnvPmwBDcmBJMhd HE5ZXV8KFEbb7cmDEQypXWy zJYhFfEmQXhkSoo1m7mvLAI hgT46lEJvmuJ0xNbrAAjqqb IwfXtcbGlzdGxldmVsXGxld hJzoaKiQtVcuAG3WDrjCnCs OzBclZX3GOjkMzXoiHK1YWq pfBWwgGL8HFeoqKQ2ANt0LY w5JVwuGEjbNjz8cElohOZ5D HefsW3gJKNjF34zEuMxCnIk TR72FXtrb7PfSKGlgNluIOP erK2pKqXeKAwlyzGyzkLsuq IzXGxldmVsamMwXGxldmVsc 0AlyqBrsJD4AGhqbbExmGV0 kHpcHHRyR8I7D664UHdtrwH tfdRpEcOvjpl8TCRnONCoLw Q6vT58YUvwpHodkA96SVEne MMksJGbaSU7NBcdoIgbmX04 TDJriAXxNNnug6WtGREuDnB 2IbQzPZUajKoptE35GVAwkT KkB537fuEgARamLU96DSWon GVydzEyMjQwXHBhcGVyaDE1 SCPgLQ3uluqkVLkaMWujOPN fmqG3QCGyfEOrG5FpAYMaNK 6lovunRVG0IIkmDUEuWFW8X hGvRHBfo4Wsacx8SlIlzRFj KRxmpADdixblDZVaIiPeL0Q wLZJvYNL4j42gH5nxITRgn7 BzeTpccGFyXGxpMzYwXGZpM YwdHKpkodA6HVzsreIyeXv2 rJGnsXtbsD2gQdcamhSyZDD oSCJBt2KhgXUebm2ytY2sOV BnrfAEyrBJOTrmB03aZKF0C YKcdBpqr8BkAShgNQ95oPFp ZWRccGFyfQ== [facility] Professional Interpretation Performed at: z0ipbUUuCCRbwQEuUkCtECD vLJFzb3lrHLSmdUKvHfVvRr NcZnRuYmpcdWMxXGRlZmYwe 2utq142uNXqo5glEPGjRdJ6 lAChPPVoeDMfN812JIOxYHg vt8sny1RqWBEwtIZlq4C4XQ ZNvapbhYi7bMtdQ51iv4D8L qszO5vrUMDqMPYuI4IaLW1o XKAoLrd3XZU0MIJ9HIEsJEB jI3JqNT6bHGIwjHXaRSh1h0 tukKpgAXIeJAE8s5ukNLssg tOwXJ5rwk4prNr0c3yzezFg WMZiPRDglQJAXFOsO1TvzTy fOc1tpDa8hOolQrjuUTZ3Li c0XN9ciw23hge4nBtgHMKus hflVvZ3BZtxTMKrcmgfZBf1 FAjfASFzxPO0BEHcaBTaQ8Q rETCeRB1jzyx9UVM8GMehUW EnZhH9BBHtdDLmSWMtfFjcX Dtar343AZB6UaMtSA4eF9Gv l1Q1lS0upYHkLFIivFWfQkQ rYHXsrt8lcYByGXcld3KkLR W4mfP7rYGzuVGnBNIdPV72S wbqf9FrYqqzOFM1JCVjiaUn s3Aqs6ssRnBjphNeJ9hjN5V yZHJoZWFkXHBnYnJkcmZvb3 Xpe9LigKBlrJx8p5vpZTPtM BNzwMneg3izXQC5BCFfU7B6 kTUvu9bpCFgwJRTahXP7ydY 7RJLpdGMyA6JrcV3eOQCzBO 2stuu4y3ovTCX2BSbeTABbW vI9qlU1NJFypKPhPSIqwBqg SGprp017ION3AsNnLLEmr0W mE8WipVetO31thOcbJ24xJI GuwJyurP6hgShitT3uKfYjZ nMyNFxwYXJkXHBsYWluXGYx XGZzMjJcbGFuZzEwMzNcaGl jaFxmMVxkYmNoXGYxXGxvY2 vvGhBaLfFmIpUGR8FmJ4QLI yHNFY8PBLzETUqbA3HEJKSN EMCYSR9BH6UBTBaEQi3ZHPO WCongpYGaURAwWUPMXDE2GC GgfCqfMZNyFJNmpzZCj1i2d SN5htgaM8dxawC0XfSjEXvz YXJ9 [facility] CBC,PLATELETSon 08-11-2024 Erythrocyte distribution width (RBC) [Ratio] 13.7 % 10.8 - 14.9 % [facility] Hematocrit (Bld) [Volume fraction] 43.2 % 34.9 - 44.3 % [facility] Hemoglobin (Bld) [Mass/Vol] 14 g/dL 11.4 - 15.2 g/dL [facility] Interpretation and review of laboratory results Abnormal [facility] MCH (RBC) [Entitic mass] 29.9 pg 25.9 - 33.9 pg [facility] MCHC (RBC) [Mass/Vol] 32.4 g/dL 31.4 - 35.9 g/dL [facility] MCV (RBC) [Entitic vol] 92.1 fL 79.6 - 97.7 fL [facility] Platelet mean volume (Bld) [Entitic vol] 11.5 fL 8.5 - 12.2 fL [facility] Platelets (Bld) [#/Vol] 240 10*3/uL 150 - 393 K/uL [facility] RBC (Bld) [#/Vol] 4.69 10*6/uL [facility] WBC (Bld) [#/Vol] 11.76 10*3/uL High 3.99 - 11.19 K/uL [facility] Hematocrit (Bld) [Volume fraction] 43.2 % Normal 34.9-44.3 [facility] Comment on above: Performed By: #### T YPEC #### [facility] (DEFAULT) [address] [address] Hemoglobin (Bld) [Mass/Vol] 14.0 g/dL Normal 11.4-15.2 [facility] Comment on above: Performed By: #### T YPEC #### [facility] (DEFAULT) [address] [address] MCV (RBC) [Entitic vol] 92.1 fL Normal 79.6-97.7 [facility] Comment on above: Performed By: #### T YPEC #### [facility] (DEFAULT) [address] [address] Mean Cell Hgb 29.9 pg Normal 25.9-33.9 [facility] Comment on above: Performed By: #### T YPEC #### [facility] (DEFAULT) [address] [address] Mean Cell Hgb Conc 32.4 g/dL Normal 31.4-35.9 [facility] Comment on above: Performed By: #### T YPEC #### [facility] (DEFAULT) [address] [address] Platelet mean volume (Bld) [Entitic vol] 11.5 fL Normal 8.5-12.2 [facility] Comment on above: Performed By: #### T YPEC #### [facility] (DEFAULT) [address] [address] Platelets (Bld) [#/Vol] 240 10*3/uL Normal 150-393 [facility] Comment on above: Performed By: #### T YPEC #### [facility] (DEFAULT) [address] [address] RBC (Bld) [#/Vol] 4.69 10*6/uL Normal 3.91-5.04 [facility] Comment on above: Performed By: #### T YPEC #### [facility] (DEFAULT) [address] [address] RBC Distribution 13.7 % Normal 10.8-14.9 [facility] Comment on above: Performed By: #### T YPEC #### [facility] (DEFAULT) [address] [address] WBC (Bld) [#/Vol] 11.76 10*3/uL High 3.99-11.19 [facility] Comment on above: Performed By: #### T YPEC #### [facility] (DEFAULT) [address] [place] [address] CHEM 7 (LYTES,BUN,CREA,GLUC) on 08-11-2024 Anion gap [Moles/Vol] 14 mmol/L 7 - 17 mmol/L [facility] Chloride [Moles/Vol] 103 mmol/L 98 - 10 8 mmol/L [facility] CO2 [Moles/Vol] 26 mmol/L 21 - 31 mmol/L [facility] Creatinine [Mass/Vol] 1.32 mg/dL High 0.50 - 1.20 mg/dL [facility] eGFR, CKD-EPI, Female 41 Low - PINF [facility] Glucose [Mass/Vol] 127 mg/dL 70 - 179 mg/dL [facility] Interpretation and review of laboratory results Abnormal [facility] Osmolality Calc [Osmolality] 306 High [facility] Potassium [Moles/Vol] 4.6 mmol/L 3.5 - 5.0 mmol/L [facility] Sodium [Moles/Vol] 138 mmol/L 135 - 145 mmol/L [facility] Urea nitrogen [Mass/Vol] 53 mg/dL High 7 - 25 mg/dL [facility] Urea nitrogen/Creatinine [Mass ratio] 40 mg/mg [facility] Anion gap [Moles/Vol] 14 mmol/L Normal 7-17 [facility] Comment on above: Performed By: #### H EMO #### [facility] (DEFAULT) [address] [place] [address] Chloride [Moles/Vol] 103 mmol/L Normal 98-108 [facility] Comment on above: Performed By: #### H EMOGC #### [facility] (DEFAULT) [address] [place] [address] CO2 [Moles/Vol] 26 mmol/L Normal 21-31 [facility] Comment on above: Performed By: #### H EMOGC #### [facility] (DEFAULT) [address] [address] Creatinine [Mass/Vol] 1.32 mg/dL High 0.50-1.20 [facility] Comment on above: Performed By: #### H EMO #### [facility] (DEFAULT) [address] [place] [address] GFR/1.73 sq M.predicted among non-blacks MDRD (S/P/Bld) [Vol rate/Area] 41 mL/min/{1.73_m2} Low >=60 [facility] Comment on above: Result Comment: Repo rted eGFR is based on the CKD-EPI 2020 equation using creatinine, age, and sex. Performed By: #### H EMO #### [place] [facility] (DEFAULT) [address] [address] Glucose [Mass/Vol] 127 mg/dL Normal Nonfastin -179 mg/dL; Fastin-99 [facility] Comment on above: Performed By: #### [facility] #### [facility] (DEFAULT) [address] [address] Osmolality [Osmolality] 306 mosm/kg High 278-305 [facility] Comment on above: Performed By: #### H EMOGC #### [facility] (DEFAULT) [address] [place] [address] Potassium [Moles/Vol] 4.6 mmol/L Normal 3.5-5.0 [facility] Comment on above: Performed By: #### H EMOGC #### [facility] (DEFAULT) [address] [place] [address] Sodium [Moles/Vol] 138 mmol/L Normal 135-145 [facility] Comment on above: Performed By: #### H EMOGC #### [facility] (DEFAULT) [address] [place] [address] Urea nitrogen [Mass/Vol] 53 mg/dL High 7-25 [facility] Comment on above: Performed By: #### [facility] #### [facility] (DEFAULT) [address] [place] [address] Urea nitrogen/Creatinine [Mass ratio] 40 mg/mg Normal [facility] Comment on above: Performed By: #### H [facility] #### [facility] (DEFAULT) [address] [place] [address] GLUCOSE POCon 08-11-2024 Glucose [Mass/Vol] 213 mg/dL High 70 - 179 mg/dL [facility] Interpretation and review of laboratory results Abnormal [facility] POC Sample Type CAPBL [facility] Glucose [Mass/Vol] 255 mg/dL High 70 - 179 mg/dL [facility] Interpretation and review of laboratory results Abnormal [facility]OC [facility] Glucose [Mass/Vol] 190 mg/dL High 70 - 179 mg/dL [facility] Interpretation and review of laboratory results Abnormal [facility] POC Sample Type [facility] Glucose [Mass/Vol] 205 mg/dL High 70 - 179 mg/dL [facility] Interpretation and review of laboratory results Abnormal [facility] POC Sample Type [facility] MAGNESIUMon 08-11-2024 Interpretation and review of laboratory results Normal [facility] Magnesium [Mass/Vol] 1.9 mg/dL 1.6 - 2 .6 mg/dL [facility] Magnesium [Mass/Vol] 1.9 mg/dL Normal 1.6-2.6 [facility] Comment on above: Performed By: #### M [facility] #### [facility] (DEFAULT) [address] [place] [address] No Panel Informationon 08-11 [facility] BLOOD CULTUREon 08-10-2024 Bacteria identified Cx Nom (Unsp spec) NO GROWTH DAY 5 OF 5 Normal [facility] Comment on above: Order Comment: 2 [...] bottle. Performed By: #### T YPEC #### [facility] (DEFAULT) [address] [place] [address] Bacteria identified Cx Nom (Unsp spec) NO GROWTH DAY 5 OF 5 Normal [facility] Comment on above: Order Comment: 2 [...] bottle. Performed By: #### B LDCULT #### [facility] (DEFAULT) [address] [place] [address] CBC,PLATELETSon 08-10-2024 Erythrocyte distribution width (RBC) [Ratio] 13.3 % 10.8 - 14.9 % [facility] Hematocrit (Bld) [Volume fraction] 45.1 % High 34.9 - 44.3 % [facility] Hemoglobin (Bld) [Mass/Vol] 14.1 g/dL 11.4 - 15.2 g/dL [facility] Interpretation and review of laboratory results Abnormal [facility] MCH (RBC) [Entitic mass] 29.1 pg 25.9 - 33.9 pg [facility] MCHC (RBC) [Mass/Vol] 31.3 g/dL Low 31.4 - 35.9 g/dL [facility] MCV (RBC) [Entitic vol] 93 fL 79.6 - 97.7 fL [facility] Platelet mean volume (Bld) [Entitic vol] 11.4 fL 8.5 - 12.2 fL [facility] Platelets (Bld) [#/Vol] 216 10*3/uL 150 - 393 K/uL [facility] RBC (Bld) [#/Vol] 4.85 10*6/uL [facility] WBC (Bld) [#/Vol] 13.78 10*3/uL High 3.99 - 11.19 K/uL [facility] Hematocrit (Bld) [Volume fraction] 45.1 % High 34.9-44.3 [facility] Comment on above: Performed By: #### H [facility] #### [facility] (DEFAULT) [address] [address] Hemoglobin (Bld) [Mass/Vol] 14.1 g/dL Normal 11.4-15.2 [facility] Comment on above: Performed By: #### H EMO #### [facility] (DEFAULT) [address] [place] [address] MCV (RBC) [Entitic vol] 93.0 fL Normal 79.6-97.7 [facility] Comment on above: Performed By: #### H EMOGC #### [facility] (DEFAULT) [address] [address] Mean Cell Hgb 29.1 pg Normal 25.9-33.9 [facility] Comment on above: Performed By: #### H EMOGC #### [facility] (DEFAULT) [address] [place] [address] Mean Cell Hgb Conc 31.3 g/dL Low 31.4-35.9 [facility] Comment on above: Performed By: #### H EMOGC #### [facility] (DEFAULT) [address] [place] [address] Platelet mean volume (Bld) [Entitic vol] 11.4 fL Normal 8.5-12.2 [facility] Comment on above: Performed By: #### H EMO #### [facility] (DEFAULT) [address] [place] [address] Platelets (Bld) [#/Vol] 216 10*3/uL Normal 150-393 [facility] Comment on above: Performed By: #### H EMO #### [facility] (DEFAULT) [address] [place] [address] RBC (Bld) [#/Vol] 4.85 10*6/uL Normal 3.91-5.04 [facility] Comment on above: Performed By: #### H EMO #### [facility] (DEFAULT) [address] [place] [address] RBC Distribution 13.3 % Normal 10.8-14.9 [facility] Comment on above: Performed By: #### H EMO #### [facility] (DEFAULT) [address] [place] [address] WBC (Bld) [#/Vol] 13.78 10*3/uL High 3.99-11.19 [facility] Comment on above: Performed By: #### H EMO #### [facility] (DEFAULT) [address] [place] [address] CHEM 7 (LYTES,BUN,CREA,GLUC) on 08-10-2024 Anion gap [Moles/Vol] 16 mmol/L 7 - 17 mmol/L [facility] Chloride [Moles/Vol] 103 mmol/L 98 - 10 8 mmol/L [facility] CO2 [Moles/Vol] 24 mmol/L 21 - 31 mmol/L [facility] Creatinine [Mass/Vol] 1.36 mg/dL High 0.50 - 1.20 mg/dL [facility] eGFR, CKD-EPI, Female 40 Low - PINF [facility] Glucose [Mass/Vol] 186 mg/dL High 70 - 179 mg/dL [facility] Interpretation and review of laboratory results Abnormal [facility] Osmolality Calc [Osmolality] 308 High [facility] Potassium [Moles/Vol] 4.9 mmol/L 3.5 - 5.0 mmol/L [facility] Sodium [Moles/Vol] 138 mmol/L 135 - 145 mmol/L [facility] Urea nitrogen [Mass/Vol] 47 mg/dL High 7 - 25 mg/dL [facility] Urea nitrogen/Creatinine [Mass ratio] 35 mg/mg [facility] Anion gap [Moles/Vol] 16 mmol/L Normal 7-17 [facility] Comment on above: Performed By: #### Jaiden NGUYEN CHM7 ####[facility] (DEFAULT)[address] [facility] [address] Chloride [Moles/Vol] 103 mmol/L Normal 98-108 [facility] Comment on above: Performed By: #### Jaiden NGUYEN CHM7 ####[facility] (DEFAULT)[address] [facility] [address] CO2 [Moles/Vol] 24 mmol/L Normal 21-31 [facility] Comment on above: Performed By: #### Jaiden NGUYEN CHM7 ####[facility] (DEFAULT)[address] [facility] [address] Creatinine [Mass/Vol] 1.36 mg/dL High 0.50-1.20 [facility] Comment on above: Performed By: #### Jaiden NGUYEN CHM7 ####[facility] (DEFAULT)[address] [facility] [address] GFR/1.73 sq M.predicted among non-blacks MDRD (S/P/Bld) [Vol rate/Area] 40 mL/min/{1.73_m2} Low >=60 [facility] Comment on above: Result Comment: Repo rted eGFR is based on the CKD-EPI 2020 equation using creatinine, age, and sex. Performed By: #### HEYDI PALACIOS7 ####[facility] (DEFAULT)[address] [place] [address] Glucose [Mass/Vol] 186 mg/dL High Nonfastin -179 mg/dL; Fastin-99 [facility] Comment on above: Performed By: #### HEYDI PALACIOS7 ####[facility] (DEFAULT)[address] [place] [address] Osmolality [Osmolality] 308 mosm/kg High 278-305 [facility] Comment on above: Performed By: #### HEYDI PALACIOS7 ####[facility] (DEFAULT)[address] [place] [address] Potassium [Moles/Vol] 4.9 mmol/L Normal 3.5-5.0 [facility] Comment on above: Performed By: #### CAMERON PALACIOS ####[facility] [facility] (DEFAULT)[address] [place] [address] Sodium [Moles/Vol] 138 mmol/L Normal 135-145 [facility] Comment on above: Performed By: #### HEYDI PALACIOS7 ####[place] [facility] (DEFAULT)[address] [place] [address] Urea nitrogen [Mass/Vol] 47 mg/dL High 7-25 [facility] Comment on above: Performed By: #### HEYDI PALACIOS7 ####[facility] (DEFAULT)[address] [place] [address] Urea nitrogen/Creatinine [Mass ratio] 35 mg/mg Normal [facility] Comment on above: Performed By: #### HEYDI PALACIOS7 ####[facility] (DEFAULT)[address] [place] [address] GLUCOSE POCon 08-10-2024 Glucose [Mass/Vol] 144 mg/dL 70 - 179 mg/dL [facility] POC [facility] Glucose [Mass/Vol] 177 mg/dL 70 - 179 [facility] P[facility] Sample Type CAPBL [facility] Glucose [Mass/Vol] 180 mg/dL High 70 - 179 mg/dL [facility] Interpretation and review of laboratory results Abnormal [facility] POC [facility] Glucose [Mass/Vol] 193 mg/dL High 70 - 179 mg/dL [facility] Interpretation and review of laboratory results Abnormal [facility] POC Sample [facility] Glucose [Mass/Vol] 200 mg/dL High 70 - 179 mg/dL [facility] Interpretation and review of laboratory results Abnormal [facility] POC [facility] Glucose [Mass/Vol] 198 mg/dL High 70 - 179 mg/dL [facility] Interpretation and review of laboratory results Abnormal [facility] POC Sample Type CAPBL [facility] MAGNESIUMon 08-10-2024 Interpretation and review of laboratory results Normal [facility] Magnesium [Mass/Vol] 1.8 mg/dL 1.6 - 2 .6 mg/dL [facility] Magnesium [Mass/Vol] 1.8 mg/dL Normal 1.6-2.6 [facility] Comment on above: Performed By: #### M [facility] ####[facility] (DEFAULT)[address] [place] [address] No Panel Informationon 08-10 [facility] URINE CULTUREOrdered By: Franklin Carcamo on 08-10-2024 Bacteria identified Cx Nom (Unsp spec) Growth [facility] Bacteria identified Cx Nom (Unsp spec) KLEBSIELLA PNEUMONIAE Abnormal [facility] Interpretation and review of laboratory results Abnormal [facility] CBC,PLATELETSon 08-09-2024 Erythrocyte distribution width (RBC) [Ratio] 13.5 % 10.8 - 14.9 % [facility] Hematocrit (Bld) [Volume fraction] 44.4 % High 34.9 - 44.3 % [facility] Hemoglobin (Bld) [Mass/Vol] 14.1 g/dL 11.4 - 15.2 g/dL [facility] Interpretation and review of laboratory results Abnormal [facility] MCH (RBC) [Entitic mass] 29.4 pg 25.9 - 33.9 pg [facility] MCHC (RBC) [Mass/Vol] 31.8 g/dL 31.4 - 35.9 g/dL [facility] MCV (RBC) [Entitic vol] 92.7 fL 79.6 - 97.7 fL [facility] Platelet mean volume (Bld) [Entitic vol] 11.5 fL 8.5 - 12.2 fL [facility] Platelets (Bld) [#/Vol] 226 10*3/uL 150 - 393 K/uL [facility] RBC (Bld) [#/Vol] 4.79 10*6/uL [facility] WBC (Bld) [#/Vol] 12.37 10*3/uL High 3.99 - 11.19 K/uL [facility] Hematocrit (Bld) [Volume fraction] 44.4 % High 34.9-44.3 [facility] Comment on above: Performed By: #### [facility] #### [facility] (DEFAULT) [address] [address] Hemoglobin (Bld) [Mass/Vol] 14.1 g/dL Normal 11.4-15.2 [facility] Comment on above: Performed By: #### H EMOGC #### [facility] (DEFAULT) [address] [place] [address] MCV (RBC) [Entitic vol] 92.7 fL Normal 79.6-97.7 O [facility] Comment on above: Performed By: #### H EMOGC #### U [facility] (DEFAULT) [address] [place] [address] Mean Cell Hgb 29.4 pg Normal 25.9-33.9 [facility] Comment on above: Performed By: #### H EMOGC #### [facility] (DEFAULT) [address] [address] Mean Cell Hgb Conc 31.8 g/dL Normal 31.4-35.9 [facility] Comment on above: Performed By: #### H EMOGC #### [facility] (DEFAULT) [address] [address] Platelet mean volume (Bld) [Entitic vol] 11.5 fL Normal 8.5-12.2 [facility] Comment on above: Performed By: #### H EMOGC #### [facility] (DEFAULT) [address] [address] Platelets (Bld) [#/Vol] 226 10*3/uL Normal 150-393 [facility] Comment on above: Performed By: #### H EMOGC #### [facility] (DEFAULT) [address] [address] RBC (Bld) [#/Vol] 4.79 10*6/uL Normal 3.91-5.04 [facility] Comment on above: Performed By: #### H EMOGC #### [facility] (DEFAULT) [address] [address] RBC Distribution 13.5 % Normal 10.8-14.9 [facility] Comment on above: Performed By: #### H EMOGC #### [facility] (DEFAULT) [address] [address] WBC (Bld) [#/Vol] 12.37 10*3/uL High 3.99-11.19 [facility] Comment on above: Performed By: #### [facility] #### [facility] (DEFAULT) [address] [place] [address] CHEM 7 (LYTES,BUN,CREA,GLUC) on 08-09-2024 Anion gap [Moles/Vol] 14 mmol/L 7 - 17 mmol/L [facility] Chloride [Moles/Vol] 103 mmol/L 98 - 10 8 [facility]L [facility] CO2 [Moles/Vol] 26 mmol/L 21 - 31 mmol/L [facility] Creatinine [Mass/Vol] 1.35 mg/dL High 0.50 - 1.20 mg/dL [facility] eGFR, CKD-EPI, Female 40 Low - PINF [facility] Glucose [Mass/Vol] 182 mg/dL High 70 - 179 mg/dL [facility] Interpretation and review of laboratory results Abnormal [facility] Osmolality Calc [Osmolality] 305 [facility] Potassium [Moles/Vol] 4.9 mmol/L 3.5 - 5.0 mmol/L [facility] Sodium [Moles/Vol] 138 mmol/L 135 - 145 mmol/L [facility] Urea nitrogen [Mass/Vol] 38 mg/dL High 7 - 25 mg/dL [facility] Urea nitrogen/Creatinine [Mass ratio] 28 mg/mg [facility] Anion gap [Moles/Vol] 14 mmol/L Normal 7-17 [facility] Comment on above: Performed By: #### [facility] #### [facility] (DEFAULT) [address] [place] [address] Chloride [Moles/Vol] 103 mmol/L Normal 98-108 [facility] Comment on above: Performed By: #### [facility] #### [facility] (DEFAULT) [address] [place] [address] CO2 [Moles/Vol] 26 mmol/L Normal 21-31 [facility] Comment on above: Performed By: #### H EMOGC #### [facility] (DEFAULT) [address] [address] Creatinine [Mass/Vol] 1.35 mg/dL High 0.50-1.20 [facility] Comment on above: Performed By: #### H EMO #### [facility] (DEFAULT) [address] [place] [address] GFR/1.73 sq M.predicted among non-blacks MDRD (S/P/Bld) [Vol rate/Area] 40 mL/min/{1.73_m2} Low >=60 [facility] Comment on above: Result Comment: Repo rted eGFR is based on the CKD-EPI 2020 equation using creatinine, age, and sex. Performed By: #### H EMO #### [place] [facility] (DEFAULT) [address] [address] Glucose [Mass/Vol] 182 mg/dL High Nonfastin -179 mg/dL; Fastin-99 [facility] Comment on above: Performed By: #### [facility] #### [facility] (DEFAULT) [address] [address] Osmolality [Osmolality] 305 mosm/kg Normal 278-305 [facility] Comment on above: Performed By: #### H EMOGC #### [facility] (DEFAULT) [address] [place] [address] Potassium [Moles/Vol] 4.9 mmol/L Normal 3.5-5.0 [facility] Comment on above: Performed By: #### H EMOGC #### [facility] (DEFAULT) [address] [place] [address] Sodium [Moles/Vol] 138 mmol/L Normal 135-145 [facility] Comment on above: Performed By: #### H EMOGC #### [facility] (DEFAULT) [address] [place] [address] Urea nitrogen [Mass/Vol] 38 mg/dL High 7-25 [facility] Comment on above: Performed By: #### [facility] #### [facility] (DEFAULT) [address] [place] [address] Urea nitrogen/Creatinine [Mass ratio] 28 mg/mg Normal [facility] Comment on above: Performed By: #### [facility] #### [facility] (DEFAULT) [address] [place] [address] EXTRA MICROon 08-09-2024 [facility] GLUCOSE POCon 08-09-2024 Glucose [Mass/Vol] 186 mg/dL High 70 - 179 mg/dL [facility] Interpretation and review of laboratory results Abnormal [facility] POC Sample Type CAPBL [facility] Glucose [Mass/Vol] 255 mg/dL High 70 - 179 mg/dL [facility] Interpretation and review of laboratory results Abnormal [facility] POC Sample Type CAPBL [facility] Glucose [Mass/Vol] 235 mg/dL High 70 - 179 mg/dL [facility] Interpretation and review of laboratory results Abnormal [facility] POC Sample Type CAPBL [facility] Glucose [Mass/Vol] 167 mg/dL 70 - 179 mg/dL [facility] POC Sample Type CAPBL [facility] INTERVENTIONAL UPPER ENDOSCO PYon 08-09-2024 Body surface area Derived from formula 1.9 m2 [facility] LAB, [facility] Radiology Study observation (narrative) [facility] MAGNESIUMon 08-09-2024 Interpretation and review of laboratory results Normal [facility] Magnesium [Mass/Vol] 1.8 mg/dL 1.6 - 2 .6 mg/dL [facility] Magnesium [Mass/Vol] 1.8 mg/dL Normal 1.6-2.6 [facility] Comment on above: Performed By: #### H EMO #### [facility] (DEFAULT) [address] [place] [address] No Panel Informationon 08-09 [facility] PT,INR,PTTon 08-09-2024 aPTT Coag (PPP) [Time] 38.4 s High [facility] INR Coag (Bld) [Relative time] 1 {INR} 0.9 - 1.1 [facility] Interpretation and review of laboratory results Abnormal [facility] PT Coag (PPP) [Time] 13 s [facility] aPTT Coag (Bld) [Time] 38.4 s High 24.0-34.3 [facility] Comment on above: Performed By: #### B LDCULT #### [facility] (DEFAULT) [address] [place] [address] INR Coag (PPP) [Relative time] 1.0 {INR} Normal 0.9-1.1 [facility] Comment on above: Performed By: #### B LDCULT #### [facility] (DEFAULT) [address] [place] [address] PT Coag (PPP) [Time] 13.0 s Normal 11.9-14.2 [facility] Comment on above: Performed By: #### B LDCULT #### [facility] (DEFAULT) [address] [place] [address] SURG PATH REQUESTon 08-10-19 Case Report Normal [facility] Comment on above: Result Comment: Surg ical Pathology Report Case: [id number] Authorizing Provider: Judson Keith DO Collected: 08/09/2024 10:07 AM Ordering Location: [facility] Received: 08/09/2024 12:13 PM Pathologist: Renae Glez MD Specimen: STOMACH, gastric, r/o HP Performed By: #### S URGP #### [facility] (DEFAULT) [address] [address] Clinical History R/O HP. Associated Diagnosis: None. Medical History: No medical history provided. [facility] Comment on above: Performed By: #### S URGP #### [facility] (DEFAULT) [address] [address] Gross Description [facility] Comment on above: Result Comment: The specimen is received in one properly labeled container with the patient's name and accession number. A. The specimen is designated "gastric, r/o hp" and consists of five fragments of jackson-pink soft tissue, from 0.2 up to 0.6 cm in greatest dimension. TE 1 Lab Use Only: JobID [id number] Grosser for this case was: Sunshine Hidalgo Performed By: #### S URGP #### [facility] (DEFAULT) [address] [address] Microscopic Description A microscopic examination was performed. [facility] Comment on above: Performed By: #### S URGP #### [facility] (DEFAULT) [address] [address] Pathologic Diagnosis [facility] Comment on above: Result Comment: Anjelica echols, biopsy: Focal erosion No Helicobacter pylori identified at 1005 EDT Performed By: #### S URGP #### [facility] (DEFAULT) [address] [address] Professional Interpretation Performed at: [facility] Comment on above: Result Comment: [facility] For Immediate Release to Patient's [facility]? Yes [address] [address] Performed By: #### S URGP #### [facility] (DEFAULT) [address] [address] CBC,PLATELETSon 08-08-2024 Erythrocyte distribution width (RBC) [Ratio] 13.6 % 10.8 - 14.9 % [facility] Hematocrit (Bld) [Volume fraction] 45.7 % High 34.9 - 44.3 % [facility] Hemoglobin (Bld) [Mass/Vol] 14.4 g/dL 11.4 - 15.2 g/dL [facility] Interpretation and review of laboratory results Abnormal [facility] MCH (RBC) [Entitic mass] 29.4 pg 25.9 - 33.9 pg [facility] MCHC (RBC) [Mass/Vol] 31.5 g/dL 31.4 - 35.9 g/dL [facility] MCV (RBC) [Entitic vol] 93.3 fL 79.6 - 97.7 fL [facility] Platelet mean volume (Bld) [Entitic vol] 10.9 fL 8.5 - 12.2 fL [facility] Platelets (Bld) [#/Vol] 212 10*3/uL 150 - 393 K/uL [facility] RBC (Bld) [#/Vol] 4.9 10*6/uL [facility] WBC (Bld) [#/Vol] 10.39 10*3/uL 3.99 - 11.19 K/uL [facility] Hematocrit (Bld) [Volume fraction] 45.7 % High 34.9-44.3 [facility] Comment on above: Performed By: #### [facility] #### [facility] (DEFAULT) [address] [address] Hemoglobin (Bld) [Mass/Vol] 14.4 g/dL Normal 11.4-15.2 [facility] Comment on above: Performed By: #### [facility] #### [facility] (DEFAULT) [address] [address] MCV (RBC) [Entitic vol] 93.3 fL Normal 79.6-97.7 [facility] Comment on above: Performed By: #### H EMOGC #### [facility] (DEFAULT) [address] [place] [address] Mean Cell Hgb 29.4 pg Normal 25.9-33.9 [facility] Comment on above: Performed By: #### H EMOGC #### [facility] (DEFAULT) [address] [address] Mean Cell Hgb Conc 31.5 g/dL Normal 31.4-35.9 [facility] Comment on above: Performed By: #### H EMOGC #### [facility] (DEFAULT) [address] [place] [address] Platelet mean volume (Bld) [Entitic vol] 10.9 fL Normal 8.5-12.2 [facility] Comment on above: Performed By: #### H EMOGC #### [facility] (DEFAULT) [address] [address] Platelets (Bld) [#/Vol] 212 10*3/uL Normal 150-393 [facility] Comment on above: Performed By: #### H EMOGC #### [facility] (DEFAULT) [address] [address] RBC (Bld) [#/Vol] 4.90 10*6/uL Normal 3.91-5.04 [facility] Comment on above: Performed By: #### H EMOGC #### [facility] (DEFAULT) [address] [address] RBC Distribution 13.6 % Normal 10.8-14.9 [facility] Comment on above: Performed By: #### H EMOGC #### [facility] (DEFAULT) [address] [address] WBC (Bld) [#/Vol] 10.39 10*3/uL Normal 3.99-11.19 [facility] Comment on above: Performed By: #### H EMOGC #### [facility] (DEFAULT) [address] [place] [address] CHEM 7 (LYTES,BUN,CREA,GLUC) on 08-08-2024 Anion gap [Moles/Vol] 15 mmol/L 7 - 17 mmol/L [facility] Chloride [Moles/Vol] 104 mmol/L 98 - 10 8 mmol/L [facility] CO2 [Moles/Vol] 25 mmol/L 21 - 31 mmol/L [facility] Creatinine [Mass/Vol] 1.15 mg/dL 0.50 - 1.20 mg/dL [facility] eGFR, CKD-EPI, Female 48 Low - PINF [facility] Glucose [Mass/Vol] 111 mg/dL 70 - 179 mg/dL [facility] Interpretation and review of laboratory results Abnormal [facility] Osmolality Calc [Osmolality] 302 [facility] Potassium [Moles/Vol] 4.3 mmol/L 3.5 - 5.0 mmol/L [facility] Sodium [Moles/Vol] 140 mmol/L 135 - 145 mmol/L [facility] Urea nitrogen [Mass/Vol] 35 mg/dL High 7 - 25 mg/dL [facility] Urea nitrogen/Creatinine [Mass ratio] 30 mg/mg [facility] Anion gap [Moles/Vol] 15 mmol/L Normal 7-17 [facility] Comment on above: Performed By: #### HEYDI PALACIOS7 ####[facility] (DEFAULT)[address] [place] [address] Chloride [Moles/Vol] 104 mmol/L Normal 98-108 [facility] Comment on above: Performed By: #### HEYDI PALACIOS7 ####[facility] (DEFAULT)[address] [place] [address] CO2 [Moles/Vol] 25 mmol/L Normal 21-31 [facility] Comment on above: Performed By: #### HEYDI PALACIOS7 ####[facility] (DEFAULT)[address] [place] [address] Creatinine [Mass/Vol] 1.15 mg/dL Normal 0.50-1.20 [facility] Comment on above: Performed By: #### HEYDI PALACIOS7 ####[facility] (DEFAULT)[address] [place] [address] GFR/1.73 sq M.predicted among non-blacks MDRD (S/P/Bld) [Vol rate/Area] 48 mL/min/{1.73_m2} Low >=60 [facility] Comment on above: Result Comment: Repo rted eGFR is based on the CKD-EPI 2020 equation using creatinine, age, and sex. Performed By: #### HEYDI PALACIOS7 ####[facility] (DEFAULT)[address] [place] [address] Glucose [Mass/Vol] 111 mg/dL Normal Nonfastin -179 mg/dL; Fastin-99 [facility] Comment on above: Performed By: #### CAMERON PALACIOS ####[facility] (DEFAULT)[address] [place] [address] Osmolality [Osmolality] 302 mosm/kg Normal 278-305 [facility] Comment on above: Performed By: #### HEYDI PALACIOS7 ####[facility] (DEFAULT)[address] [place] [address] Potassium [Moles/Vol] 4.3 mmol/L Normal 3.5-5.0 [facility] Comment on above: Performed By: #### HEYDI PALACIOS7 ####[facility] (DEFAULT)[address] [place] [address] Sodium [Moles/Vol] 140 mmol/L Normal 135-145 [facility] Comment on above: Performed By: #### HEYDI PALACIOS7 ####[facility] (DEFAULT)[address] [place] [address] Urea nitrogen [Mass/Vol] 35 mg/dL High 7-25 [facility] Comment on above: Performed By: #### M WENDY CHM7 ####[facility] [place] [address] Urea nitrogen/Creatinine [Mass ratio] 30 mg/mg Normal [facility] Comment on above: Performed By: #### M WENDY CHM7 ####[facility] (DEFAULT)[address] [place] [address] CT HEAD WITHOUT CONTRASTon 0 08-08-2024 CT [...] have reviewed and approved this report. Normal [facility] CT Head WO contraston 2024 RADIOLOGY RADIOLOGY [facility] Radiology Study observation (narrative) [facility] GLUCOSE POCon 08-08-2024 Glucose [Mass/Vol] 150 mg/dL 70 - 179 mg/dL [facility] POC Sample Type [facility]BL [facility] Glucose [Mass/Vol] 148 mg/dL 70 - 179 mg/dL [facility] POC Sample Type CAPBL [facility] Glucose [Mass/Vol] 192 mg/dL High 70 - 179 mg/dL [facility] Interpretation and review of laboratory results Abnormal [facility] Glucose [Mass/Vol] 198 mg/dL High 70 - 179 mg/dL [facility] Interpretation and review of laboratory results Abnormal [facility] POC Sample Type CAPBL [facility] Glucose [Mass/Vol] 186 mg/dL High 70 - 179 mg/dL [facility] Interpretation and review of laboratory results Abnormal [facility] POC Sample Type CAPBL [facility] MAGNESIUMon 08-08-2024 Interpretation and review of laboratory results Normal [facility] Magnesium [Mass/Vol] 1.7 mg/dL 1.6 - 2 .6 mg/dL [facility] Magnesium [Mass/Vol] 1.7 mg/dL Normal 1.6-2.6 [facility] Comment on above: Performed By: #### [facility] ####[facility] (DEFAULT)[address] [place] [address] No Panel Informationon 08-08 [facility] URINALYSIS REFLEX TO CULTURE PERFORMABLEOrdered By: Danya Yates on 08-08-2024 Appearance (U) Cloudy Abnormal Clear [facility] Bacteria LM Ql (Urine sed) PRESENT Abnormal ABSENT [facility] Color (U) Yellow Yellow U [facility] Epithelial cells.squamous LM Ql (Urine sed) 0-2/hpf 0-2/hpf, 3-5/hpf = 1+ [facility] Glucose Test strip (U) [Mass/Vol] Negative Negative [facility] Interpretation and review of laboratory results [facility] Ketones (U) [Mass/Vol] Trace Abnormal Negative OS [facility] Leukocyte esterase Test strip Ql (U) Large Abnormal Negative [facility] Nitrite Ql (U) Positive Abnormal Negative [facility] pH (U) 7.0 [pH] 5.0 - 7.0 [facility] Protein (U) [Mass/Vol] Trace Abnormal Negative OS [facility] RBC (U) [#/Vol] Trace Abnormal Negative [facility] RBC LM.HPF (Urine sed) [#/Area] 6-10 Abnormal [facility] Specific gravity (U) [Rel density] 1.023 1.001 - 1.035 [facility] Urobilinogen (U) [Mass/Vol] 1.0 E.U./dL 0.2 E.U/dL, 1.0 E.U/dL [facility] WBC LM.HPF (Urine sed) [#/Area] /[HPF] Abnormal [facility] URINALYSIS REFLEX TO CULTURE PERFORMABLEon 08-08-2024 Appearance (U) Cloudy Abnormal Clear [facility] Comment on above: Order Comment: For i ndwelling catheters, specimen collection is acceptable on catheter day 1 and 2 only. ? Performed By: #### T YPEC #### [facility] (DEFAULT) [address] [address] Bacteria PRESENT Abnormal ABSENT [facility] Comment on above: Order Comment: For i ndwelling catheters, specimen collection is acceptable on catheter day 1 and 2 only. ? Performed By: #### T YPEC #### [facility] (DEFAULT) [address] [place] [address] Blood Urine Trace Abnormal Negative [facility] Comment on above: Order Comment: For i ndwelling catheters, specimen collection is acceptable on catheter day 1 and 2 only. ? Performed By: #### T YPEC #### [facility] (DEFAULT) [address] [place] [address] Color (U) Yellow Normal Yellow [facility] Comment on above: Order Comment: For i ndwelling catheters, specimen collection is acceptable on catheter day 1 and 2 only. ? Performed By: #### T YPEC #### [facility] (DEFAULT) [address] [place] [address] Glucose Ql (U) Negative Normal Negative [facility] Comment on above: Order Comment: For i ndwelling catheters, specimen collection is acceptable on catheter day 1 and 2 only. ? Performed By: #### T YPEC #### [facility] (DEFAULT) [address] [place] [address] Ketones Ql (U) Trace Abnormal Negative [facility] Comment on above: Order Comment: For i ndwelling catheters, specimen collection is acceptable on catheter day 1 and 2 only. ? Performed By: #### T YPEC #### [facility] (DEFAULT) [address] [place] [address] Leukocyte esterase Test strip Ql (U) Large Abnormal Negative [facility] Comment on above: Order Comment: For i ndwelling catheters, specimen collection is acceptable on catheter day 1 and 2 only. ? Performed By: #### T YPEC #### [facility] (DEFAULT) [address] [place] [address] Nitrites Urine Positive Abnormal Negative [facility] Comment on above: Order Comment: For i ndwelling catheters, specimen collection is acceptable on catheter day 1 and 2 only. ? Performed By: #### T YPEC #### [facility] (DEFAULT) [address] [place] [address] pH (U) 7.0 [pH] Normal 5.0-7.0 [facility] Comment on above: Order Comment: For i ndwelling catheters, specimen collection is acceptable on catheter day 1 and 2 only. ? Performed By: #### T YPEC #### [facility] (DEFAULT) [address] [place] [address] Protein Urine Trace Abnormal Negative [facility] Comment on above: Order Comment: For i ndwelling catheters, specimen collection is acceptable on catheter day 1 and 2 only. ? Performed By: #### T YPEC #### [facility] (DEFAULT) [address] [place] [address] RBC Urine 6-10 Abnormal 0-2 [facility] Comment on above: Order Comment: For i ndwelling catheters, specimen collection is acceptable on catheter day 1 and 2 only. ? Performed By: #### T YPEC #### [facility] (DEFAULT) [address] [address] Specific [place] Urine 1.023 Normal 1.001-1.035 [facility] Comment on above: Order Comment: For i ndwelling catheters, specimen collection is acceptable on catheter day 1 and 2 only. ? Performed By: #### T YPEC #### [facility] (DEFAULT) [address] [address] Squamous/Epithelial Cells, Urine 0-2/hpf Normal 0-2/hpf, 3-5/hpf = 1+ [facility] Comment on above: Order Comment: For i ndwelling catheters, specimen collection is acceptable on catheter day 1 and 2 only. ? Performed By: #### T YPEC #### [facility] (DEFAULT) [address] [place] [address] Urobilinogen Urine 1.0 E.U./dL Normal 0.2 E.U/d L, 1.0 E.U/dL [facility] Comment on above: Order Comment: For i ndwelling catheters, specimen collection is acceptable on catheter day 1 and 2 only. ? Performed By: #### T YPEC #### [facility] (DEFAULT) [address] [place] [address] WBC LM.HPF (Urine sed) [#/Area] /[HPF] Abnormal 0 - 5 [facility] Comment on above: Order Comment: For i ndwelling catheters, specimen collection is acceptable on catheter day 1 and 2 only. ? Performed By: #### T YPEC #### [facility] (DEFAULT) [address] [address] URINE CULTUREon 08-08-2024 Amikacin [Susceptibility] <= Invalid Interpretation Code [facility] Comment on above: Order Comment: For [...] ? Performed By: #### T YPEC #### [facility] (DEFAULT) [address] [address] Ampicillin [Susceptibility] >=32 Resistant [facility] Comment on above: Order Comment: For [...] ? Performed By: #### T YPEC #### [facility] (DEFAULT) [address] [address] Ampicillin+Sulbactam [Susceptibility] >=32 Resistant [facility] Comment on above: Order Comment: For [...] Performed By: #### T YPEC #### [facility] (DEFAULT) [address] [address] ceFAZolin [Susceptibility] >= Resistant [facility] Comment on above: Order Comment: For [...] cefdinir. Performed By: #### T YPEC #### [facility] [address] [address] Cefepime [Susceptibility] <= Invalid Interpretation Code [facility] Comment on above: Order Comment: For [...] ? Performed By: #### T YPEC #### [facility] (DEFAULT) [address] [address] cefTRIAXone [Susceptibility] <= Invalid Interpretation Code [facility] Comment on above: Order Comment: For [...] ? Performed By: #### T YPEC #### [facility] (DEFAULT) [address] [address] Ciprofloxacin [Susceptibility] >= Resistant [facility] Comment on above: Order Comment: For [...] ? Performed By: #### T YPEC #### [facility] (DEFAULT) [address] [address] Ertapenem [Susceptibility] <= Invalid Interpretation Code [facility] Comment on above: Order Comment: For [...] ? Performed By: #### T YPEC #### [facility] (DEFAULT) [address] [address] Gentamicin [Susceptibility] <= Invalid Interpretation Code [facility] Comment on above: Order Comment: For [...] ? Performed By: #### T YPEC #### [facility] (DEFAULT) [address] [address] levoFLOXacin [Susceptibility] >= Resistant [facility] Comment on above: Order Comment: For [...] ? Performed By: #### T YPEC #### [facility] (DEFAULT) [address] [address] Nitrofurantoin [Susceptibility] 128 ug/mL Resistant [facility] Comment on above: Order Comment: For [...] ? Performed By: #### T YPEC #### [facility] (DEFAULT) [address] [address] Piperacillin+Tazobactam [Susceptibility] 8 ug/mL Invalid Interpretation Code [facility] Comment on above: Order Comment: For [...] ? Performed By: #### T YPEC #### [facility] (DEFAULT) [address] [address] Trimethoprim+Sulfametho xazole [Susceptibility] <= Invalid Interpretation Code [facility] Comment on above: Order Comment: For [...] ? Performed By: #### T YPEC #### [facility] (DEFAULT) [address] [address] CBC,PLATELETSon 08-07-2024 Erythrocyte distribution width (RBC) [Ratio] 13.9 % 10.8 - 14.9 % [facility] Hematocrit (Bld) [Volume fraction] 43.1 % 34.9 - 44.3 % [facility] Hemoglobin (Bld) [Mass/Vol] 13.7 g/dL 11.4 - 15.2 g/dL [facility] Interpretation and review of laboratory results Abnormal [facility] MCH (RBC) [Entitic mass] 29.6 pg 25.9 - 33.9 pg [facility] MCHC (RBC) [Mass/Vol] 31.8 g/dL 31.4 - 35.9 g/dL [facility] MCV (RBC) [Entitic vol] 93.1 fL 79.6 - 97.7 fL [facility] Platelet mean volume (Bld) [Entitic vol] 11.1 fL 8.5 - 12.2 fL [facility] Platelets (Bld) [#/Vol] 214 10*3/uL 150 - 393 K/uL [facility] RBC (Bld) [#/Vol] 4.63 10*6/uL [facility] WBC (Bld) [#/Vol] 11.3 10*3/uL High 3.99 - 11.19 K/uL [facility] CHEM 7 (LYTES,BUN,CREA,GLUC) on 08-07-2024 Anion gap [Moles/Vol] 13 mmol/L 7 - 17 mmol/L [facility] Chloride [Moles/Vol] 105 mmol/L 98 - 10 8 mmol/L [facility] CO2 [Moles/Vol] 28 mmol/L 21 - 31 mmol/L [facility] Creatinine [Mass/Vol] 1.19 mg/dL 0.50 - 1.20 mg/dL [facility] eGFR, CKD-EPI, Female 47 Low - PINF [facility] Glucose [Mass/Vol] 90 mg/dL 70 - 179 mg/dL [facility] Interpretation and review of laboratory results Abnormal [facility] Osmolality Calc [Osmolality] 304 [facility] Potassium [Moles/Vol] 4.2 mmol/L 3.5 - 5.0 mmol/L [facility] Sodium [Moles/Vol] 142 mmol/L 135 - 145 mmol/L [facility] Urea nitrogen [Mass/Vol] 34 mg/dL High 7 - 25 mg/dL [facility] Urea nitrogen/Creatinine [Mass ratio] 29 mg/mg [facility] GLUCOSE POCon 08-07-2024 Glucose [Mass/Vol] 185 mg/dL High 70 - 179 mg/dL [facility] Interpretation and review of laboratory results Abnormal [facility] POC Sample Type CAPBL [facility] Glucose [Mass/Vol] 106 mg/dL 70 - 179 mg/dL [facility] POC Sample Type CAPBL [facility] Glucose [Mass/Vol] 104 mg/dL 70 - 179 mg/dL [facility] POC Sample Type CAPBL [facility] MAGNESIUMon 08-07-2024 Interpretation and review of laboratory results Normal [facility] Magnesium [Mass/Vol] 1.8 mg/dL 1.6 - 2 .6 mg/dL [facility] No Panel Informationon 08-07 [facility] CBC,PLATELETSon 08-06-2024 Hematocrit (Bld) [Volume fraction] 43.1 % Normal 34.9-44.3 [facility] Comment on above: Performed By: #### X M #### [facility] (DEFAULT) [address] [place] [address] Hemoglobin (Bld) [Mass/Vol] 13.7 g/dL Normal 11.4-15.2 [facility] Comment on above: Performed By: #### X M #### [facility] (DEFAULT) [address] [place] [address] MCV (RBC) [Entitic vol] 93.1 fL Normal 79.6-97.7 [facility] Comment on above: Performed By: #### X M #### [facility] (DEFAULT) [address] [place] [address] Mean Cell Hgb 29.6 pg Normal 25.9-33.9 [facility] Comment on above: Performed By: #### X M #### [facility] (DEFAULT) [address] [place] [address] Mean Cell Hgb Conc 31.8 g/dL Normal 31.4-35.9 [facility] Comment on above: Performed By: #### X M #### [facility] (DEFAULT) [address] [place] [address] Platelet mean volume (Bld) [Entitic vol] 11.1 fL Normal 8.5-12.2 [facility] Comment on above: Performed By: #### X M #### [facility] (DEFAULT) [address] [place] [address] Platelets (Bld) [#/Vol] 214 10*3/uL Normal 150-393 [facility] Comment on above: Performed By: #### X M #### [facility] (DEFAULT) [address] [address] RBC (Bld) [#/Vol] 4.63 10*6/uL Normal 3.91-5.04 [facility] Comment on above: Performed By: #### X M #### [facility] (DEFAULT) [address] [place] [address] RBC Distribution 13.9 % Normal 10.8-14.9 [facility] Comment on above: Performed By: #### X M #### [facility] (DEFAULT) [address] [place] [address] WBC (Bld) [#/Vol] 11.30 10*3/uL High 3.99-11.19 [facility] Comment on above: Performed By: #### X M #### [facility] (DEFAULT) [address] [address] Erythrocyte distribution width (RBC) [Ratio] 13.9 % 10.8 - 14.9 % [facility] Hematocrit (Bld) [Volume fraction] 44 % 34.9 - 44.3 % [facility] Hemoglobin (Bld) [Mass/Vol] 13.9 g/dL 11.4 - 15.2 g/dL [facility] Interpretation and review of laboratory results Abnormal [facility] MCH (RBC) [Entitic mass] 29.1 pg 25.9 - 33.9 pg [facility] MCHC (RBC) [Mass/Vol] 31.6 g/dL 31.4 - 35.9 g/dL [facility] MCV (RBC) [Entitic vol] 92.2 fL 79.6 - 97.7 fL [facility] Platelet mean volume (Bld) [Entitic vol] 10.7 fL 8.5 - 12.2 fL [facility] Platelets (Bld) [#/Vol] 216 10*3/uL 150 - 393 K/uL [facility] RBC (Bld) [#/Vol] 4.77 10*6/uL [facility] WBC (Bld) [#/Vol] 12.14 10*3/uL High 3.99 - 11.19 K/uL [facility] CHEM 7 (LYTES,BUN,CREA,GLUC) on 08-06-2024 Anion gap [Moles/Vol] 13 mmol/L Normal 7-17 [facility] Comment on above: Performed By: #### Jaiden NGUYEN CHM7 ####[facility] (DEFAULT)[address] [place] [address] Chloride [Moles/Vol] 105 mmol/L Normal 98-108 [facility] Comment on above: Performed By: #### Jaiden NGUYEN CHM7 ####[facility] (DEFAULT)[address] [place] [address] CO2 [Moles/Vol] 28 mmol/L Normal 21-31 [facility] Comment on above: Performed By: #### Jaiden NGUYEN CHM7 ####[facility] (DEFAULT)[address] [place] [address] Creatinine [Mass/Vol] 1.19 mg/dL Normal 0.50-1.20 [facility] Comment on above: Performed By: #### Jaiden NGUYEN CHM7 ####[facility] (DEFAULT)[address] [place] [address] GFR/1.73 sq M.predicted among non-blacks MDRD (S/P/Bld) [Vol rate/Area] 47 mL/min/{1.73_m2} Low >=60 [facility] Comment on above: Result Comment: Repo rted eGFR is based on the CKD-EPI 2020 equation using creatinine, age, and sex. Performed By: #### HEYDI PALACIOS7 ####[facility] (DEFAULT)[address] [place] [address] Glucose [Mass/Vol] 90 mg/dL Normal Nonfastin -179 mg/dL; Fastin-99 [facility] Comment on above: Performed By: #### HEYDI PALACIOS7 ####[facility] (DEFAULT)[address] [facility] [place] [address] Osmolality [Osmolality] 304 mosm/kg Normal 278-305 [facility] Comment on above: Performed By: #### HEYDI PALACIOS7 ####[facility] (DEFAULT)[address] [facility] [place] [address] Potassium [Moles/Vol] 4.2 mmol/L Normal 3.5-5.0 [facility] Comment on above: Performed By: #### HEYDI PALACIOS7 ####[facility] (DEFAULT)[address] [place] [address] Sodium [Moles/Vol] 142 mmol/L Normal 135-145 [facility] Comment on above: Performed By: #### HEYDI PALACIOS7 ####[facility] (DEFAULT)[address] [facility] [place] [address] Urea nitrogen [Mass/Vol] 34 mg/dL High 7-25 [facility] Comment on above: Performed By: #### HEYDI PALACIOS7 ####[facility] (DEFAULT)[address] [facility] [place] [address] Urea nitrogen/Creatinine [Mass ratio] 29 mg/mg Normal [facility] Comment on above: Performed By: #### M , M7 ####[facility] (DEFAULT)[address] [place] [address] Anion gap [Moles/Vol] 14 mmol/L 7 - 17 mmol/L [facility] Chloride [Moles/Vol] 107 mmol/L 98 - 10 8 mmol/L [facility] CO2 [Moles/Vol] 27 mmol/L 21 - 31 mmol/L [facility] Creatinine [Mass/Vol] 1.19 mg/dL 0.50 - 1.20 mg/dL [facility] eGFR, CKD-EPI, Female 47 Low - PINF [facility] Glucose [Mass/Vol] 88 mg/dL 70 - 179 mg/dL [facility] Interpretation and review of laboratory results Abnormal [facility] Osmolality Calc [Osmolality] 307 High [facility] Potassium [Moles/Vol] 3.9 mmol/L 3.5 - 5.0 mmol/L [facility] Sodium [Moles/Vol] 144 mmol/L 135 - 145 mmol/L [facility] Urea nitrogen [Mass/Vol] 34 mg/dL High 7 - 25 mg/dL [facility] Urea nitrogen/Creatinine [Mass ratio] 29 mg/mg [facility] GLUCOSE POCon 08-06-2024 Glucose [Mass/Vol] 166 mg/dL 70 - 179 mg/dL [facility] Glucose [Mass/Vol] 106 mg/dL 70 - 179 mg/dL [facility] Glucose [Mass/Vol] 100 mg/dL 70 - 179 mg/dL [facility] POC Sample Type VENO [facility] Glucose [Mass/Vol] 219 mg/dL High 70 - 179 mg/dL [facility] Interpretation and review of laboratory results Abnormal [facility] Glucose [Mass/Vol] 249 mg/dL High 70 - 179 mg/dL [facility] Glucose [Mass/Vol] 178 mg/dL 70 - 179 mg/dL [facility] Glucose [Mass/Vol] 194 mg/dL High 70 - 179 mg/dL [facility] Glucose [Mass/Vol] 93 mg/dL 70 - 179 mg/dL [facility] POC Sample Type VENO [facility] IONIZED CALCIUM, WHOLE BLOOD Ordered By: Zuleika Blunt on 08-06-2024 Calcium.ionized (Bld) [Moles/Vol] 4.72 mg/dL 4.60 - 5.30 mg/dL [facility] Interpretation and review of laboratory results Normal [facility] MAGNESIUMon 08-06-2024 Magnesium [Mass/Vol] 1.8 mg/dL Normal 1.6-2.6 [facility] Comment on above: Performed By: #### M CAMERON NGUYEN ####[facility] (DEFAULT)[address] [place] [address] Magnesium [Mass/Vol] 2.4 mg/dL 1.6 - 2 .6 mg/dL [facility] No Panel Informationon 08-06 POC Sample Type CAPBL [facility] Interpretation and review of laboratory results Abnormal [facility] Interpretation and review of laboratory results Normal [facility] PHOSPHATE, INORGANICon 08-06 Phosphate [Mass/Vol] 3.2 mg/dL 2.2 - 4 .6 mg/dL [facility] RF videography Hypopharynx a nd Esophagus Views W liquid and paste contrast PO during swallowingon 08-06-2024 RADIOLOGY RADIOLOGY [facility] Radiology Study observation (narrative) [facility] RF videography Hypopharynx a nd Esophagus Views W liquid and paste contrast PO during swallowingOrdered By: Gerry Resendez on 08-06-2024 [facility] Work Phone: SPEECH MODIFIED BARIUM SWALL OWon 08-06-2024 [facility] XR FLUORO MODIFIED BARIUM SW ALLOW [...] for specific therapeutic recommendations, please see the brim pouncer report of the speech pathologist. Examination performed by ARCADIO Nicole, under the direct supervision of Gerry Resendez M.D., who was immediately available on site during the examination. I personally viewed and interpreted these images and I have reviewed and approved this report. Normal [facility] CBC,PLATELETSon 08-05-2024 Hematocrit (Bld) [Volume fraction] 44.0 % Normal 34.9-44.3 [facility] Comment on above: Performed By: #### B LDCULT #### [facility] (DEFAULT) [address] [address] Hemoglobin (Bld) [Mass/Vol] 13.9 g/dL Normal 11.4-15.2 [facility] Comment on above: Performed By: #### B LDCULT #### [facility] (DEFAULT) [address] [address] MCV (RBC) [Entitic vol] 92.2 fL Normal 79.6-97.7 [facility] Comment on above: Performed By: #### B LDCULT #### [facility] (DEFAULT) [address] [address] Mean Cell Hgb 29.1 pg Normal 25.9-33.9 [facility] Comment on above: Performed By: #### B LDCULT #### [facility] (DEFAULT) [address] [address] Mean Cell Hgb Conc 31.6 g/dL Normal 31.4-35.9 [facility] Comment on above: Performed By: #### B LDCULT #### [facility] (DEFAULT) [address] [address] Platelet mean volume (Bld) [Entitic vol] 10.7 fL Normal 8.5-12.2 [facility] Comment on above: Performed By: #### B LDCULT #### [facility] (DEFAULT) [address] [address] Platelets (Bld) [#/Vol] 216 10*3/uL Normal 150-393 [facility] Comment on above: Performed By: #### B LDCULT #### [facility] (DEFAULT) [address] [address] RBC (Bld) [#/Vol] 4.77 10*6/uL Normal 3.91-5.04 [facility] Comment on above: Performed By: #### B LDCULT #### [facility] (DEFAULT) [address] [address] RBC Distribution 13.9 % Normal 10.8-14.9 [facility] Comment on above: Performed By: #### B LDCULT #### [facility] (DEFAULT) [address] [address] WBC (Bld) [#/Vol] 12.14 10*3/uL High 3.99-11.19 [facility] Comment on above: Performed By: #### B LDCULT #### [facility] (DEFAULT) [address] [place] [address] Erythrocyte distribution width (RBC) [Ratio] 13.9 % 10.8 - 14.9 % [facility] Hematocrit (Bld) [Volume fraction] 39.6 % 34.9 - 44.3 % [facility] Hemoglobin (Bld) [Mass/Vol] 12.6 g/dL 11.4 - 15.2 g/dL [facility] Interpretation and review of laboratory results Normal [facility] MCH (RBC) [Entitic mass] 29.3 pg 25.9 - 33.9 pg [facility] MCHC (RBC) [Mass/Vol] 31.8 g/dL 31.4 - 35.9 g/dL [facility] MCV (RBC) [Entitic vol] 92.1 fL 79.6 - 97.7 fL [facility] Platelet mean volume (Bld) [Entitic vol] 10.7 fL 8.5 - 12.2 fL [facility] Platelets (Bld) [#/Vol] 198 10*3/uL 150 - 393 K/uL [facility] RBC (Bld) [#/Vol] 4.3 10*6/uL [facility] WBC (Bld) [#/Vol] 10.61 10*3/uL 3.99 - 11.19 K/uL [facility] Hematocrit (Bld) [Volume fraction] 39.6 % Normal 34.9-44.3 [facility] Comment on above: Performed By: #### [facility] ####[facility] (DEFAULT)[address] [place] [address] Hemoglobin (Bld) [Mass/Vol] 12.6 g/dL Normal 11.4-15.2 [facility] Comment on above: Performed By: #### H EMO ####[facility] (DEFAULT)[address] [place] [address] MCV (RBC) [Entitic vol] 92.1 fL Normal 79.6-97.7 [facility] Comment on above: Performed By: #### H EMOGC ####[facility] (DEFAULT)[address] [place] [address] Mean Cell Hgb 29.3 pg Normal 25.9-33.9 [facility] Comment on above: Performed By: #### H EMOGC ####[facility] (DEFAULT)[address] [facility] [place] [address] Mean Cell Hgb Conc 31.8 g/dL Normal 31.4-35.9 [facility] Comment on above: Performed By: #### H EMOGC ####[facility] (DEFAULT)[address] [place] [address] Platelet mean volume (Bld) [Entitic vol] 10.7 fL Normal 8.5-12.2 [facility] Comment on above: Performed By: #### H EMOGC ####[facility] (DEFAULT)[address] [place] [address] Platelets (Bld) [#/Vol] 198 10*3/uL Normal 150-393 [facility] Comment on above: Performed By: #### H EMOGC ####[facility] (DEFAULT)[address] [place] [address] RBC (Bld) [#/Vol] 4.30 10*6/uL Normal 3.91-5.04 [facility] Comment on above: Performed By: #### H EMOGC ####[facility] (DEFAULT)[address] [place] [address] RBC Distribution 13.9 % Normal 10.8-14.9 [facility] Comment on above: Performed By: #### H EMOGC ####[facility] (DEFAULT)[address] [place] [address] WBC (Bld) [#/Vol] 10.61 10*3/uL Normal 3.99-11.19 [facility] Comment on above: Performed By: #### H EMO ####[facility] (DEFAULT)[address] [place] [address] CHEM 7 (LYTES,BUN,CREA,GLUC) on 08-05-2024 Anion gap [Moles/Vol] 14 mmol/L Normal 7-17 [facility] Comment on above: Performed By: #### S URGP #### [facility] (DEFAULT) [address] [place] [address] Chloride [Moles/Vol] 107 mmol/L Normal 98-108 [facility] Comment on above: Performed By: #### S URGP #### [facility] (DEFAULT) [address] [place] [address] CO2 [Moles/Vol] 27 mmol/L Normal 21-31 [facility] Comment on above: Performed By: #### S URGP #### [facility] (DEFAULT) [address] [place] [address] Creatinine [Mass/Vol] 1.19 mg/dL Normal 0.50-1.20 [facility] Comment on above: Performed By: #### S URGP #### [facility] (DEFAULT) [address] [place] [address] GFR/1.73 sq M.predicted among non-blacks MDRD (S/P/Bld) [Vol rate/Area] 47 mL/min/{1.73_m2} Low >=60 [facility] Comment on above: Result Comment: Repo rted eGFR is based on the CKD-EPI 2020 equation using creatinine, age, and sex. Performed By: #### S URGP #### [facility] (DEFAULT) [address] [place] [address] Glucose [Mass/Vol] 88 mg/dL Normal Nonfastin -179 mg/dL; Fastin-99 [facility] Comment on above: Performed By: #### S URGP #### [facility] (DEFAULT) [address] [place] [address] Osmolality [Osmolality] 307 mosm/kg High 278-305 [facility] Comment on above: Performed By: #### S URGP #### [facility] (DEFAULT) [address] [place] [address] Potassium [Moles/Vol] 3.9 mmol/L Normal 3.5-5.0 [facility] Comment on above: Performed By: #### S URGP #### [facility] (DEFAULT) [address] [place] [address] Sodium [Moles/Vol] 144 mmol/L Normal 135-145 [facility] Comment on above: Performed By: #### S URGP #### [facility] (DEFAULT) [address] [place] [address] Urea nitrogen [Mass/Vol] 34 mg/dL High 7-25 [facility] Comment on above: Performed By: #### S URGP #### [facility] (DEFAULT) [address] [place] [address] Urea nitrogen/Creatinine [Mass ratio] 29 mg/mg Normal [facility] Comment on above: Performed By: #### S URGP #### [facility] (DEFAULT) [address] [place] [address] Anion gap [Moles/Vol] 14 mmol/L 7 - 17 mmol/L [facility] Chloride [Moles/Vol] 108 mmol/L 98 - 10 8 mmol/L [facility] CO2 [Moles/Vol] 25 mmol/L 21 - 31 mmol/L [facility] Creatinine [Mass/Vol] 1.45 mg/dL High 0.50 - 1.20 mg/dL [facility] eGFR, CKD-EPI, Female 37 Low - PINF [facility] Glucose [Mass/Vol] 242 mg/dL High 70 - 179 mg/dL [facility] Interpretation and review of laboratory results Abnormal [facility] Osmolality Calc [Osmolality] 315 High [facility] Potassium [Moles/Vol] 3.8 mmol/L 3.5 - 5.0 mmol/L [facility] Sodium [Moles/Vol] 143 mmol/L 135 - 145 mmol/L [facility] Urea nitrogen [Mass/Vol] 35 mg/dL High 7 - 25 mg/dL [facility] Urea nitrogen/Creatinine [Mass ratio] 24 mg/mg [facility] Anion gap [Moles/Vol] 14 mmol/L Normal 7-17 [facility] Comment on above: Performed By: #### X M #### [facility] (DEFAULT) [address] [place] [address] Chloride [Moles/Vol] 108 mmol/L Normal 98-108 [facility] Comment on above: Performed By: #### X M #### [facility] (DEFAULT) [address] [place] [address] CO2 [Moles/Vol] 25 mmol/L Normal 21-31 [facility] Comment on above: Performed By: #### X M #### [facility] (DEFAULT) [address] [place] [address] Creatinine [Mass/Vol] 1.45 mg/dL High 0.50-1.20 [facility] Comment on above: Performed By: #### X M #### [facility] (DEFAULT) [address] [address] GFR/1.73 sq M.predicted among non-blacks MDRD (S/P/Bld) [Vol rate/Area] 37 mL/min/{1.73_m2} Low >=60 [facility] Comment on above: Result Comment: Repo rted eGFR is based on the CKD-EPI 2020 equation using creatinine, age, and sex. Performed By: #### X M #### [facility] (DEFAULT) [address] [place] [address] 57638 Glucose [Mass/Vol] 242 mg/dL High Nonfastin -179 mg/dL; Fastin-99 [facility] Comment on above: Performed By: #### X M #### [facility] (DEFAULT) [address] [place] [address] 83853 Osmolality [Osmolality] 315 mosm/kg High 278-305 [facility] Comment on above: Performed By: #### X M #### [facility] (DEFAULT) [address] [place] [address] 84266 Potassium [Moles/Vol] 3.8 mmol/L Normal 3.5-5.0 [facility] Comment on above: Performed By: #### X M #### [facility] (DEFAULT) [address] [place] [address] 02943 Sodium [Moles/Vol] 143 mmol/L Normal 135-145 [facility] Comment on above: Performed By: #### X M #### [facility] (DEFAULT) [address] [place] [address] 07497 Urea nitrogen [Mass/Vol] 35 mg/dL High 7-25 [facility] Comment on above: Performed By: #### X M #### [facility] (DEFAULT) [address] [place] [address] 40236 Urea nitrogen/Creatinine [Mass ratio] 24 mg/mg Normal [facility] Comment on above: Performed By: #### X M #### [facility] (DEFAULT) [address] [place] [address] 29868 Cardiac echo study Procedure Ordered By: Ezequiel Figueroa on 08-05-2024 Ao ASC index 1.56 cm/m2 [facility] Work Phone: [phone] Ao peak fidel 1.23 m/s [facility] Work Phone: Ao SOV index 1.56 cm/m2 [facility] Work Phone: Ao STJ index 1.36 cm/m2 [facility] Work Phone: [phone] Ao VTI 24.81 cm [facility] Work Phone: [phone] Ascending aorta 2.97 cm [facility] Work Phone: [phone] AV LVOT peak gradient 4 mmHg [facility] Work Phone: [phone] AV mean gradient 4 [facility] [phone] AV peak gradient 6 mmHG [facility] Work [facility]: [phone] AV valve area 2.72 cm2 [facility] Work Phone: [phone] AV Velocity Ratio 0.8 [facility] Work Phone: [phone] MARKUS (continuity Vmax) 2.55 cm2 [facility] Work Phone: [phone] MARKUS (continuity VTI) 2.72 cm2 [facility] Work Phone: [phone] MARKUS index (continuity Vmax) 1.34 m/s [facility] Work Phone: [phone] MARKUS index (continuity VTI) 1.43 cm2/m2 [facility] Work Phone: [phone] Avg e' pk fidel 0.09 m/s [facility] Work Phone: [phone] Body surface area Derived from formula 1.9 m2 [facility] Work Phone: [phone] BP EF 55 % [facility] Work Phone: [phone] DI (Vmax) 0.8 [facility] Work Phone: [phone] DI (VTI) 0.86 m/2 [facility] Work Phone: [phone] e' lateral pk fidel 0.0845 m/s [facility] Phone: [phone] e' lateral pk fidel 0.08 m/s [facility] Work Phone: [phone] e' septal pk fidel 0.0953 m/s [facility] Work Phone: [phone] e' septal pk fidel 0.1 m/s [facility] Work Phone: [phone] EF SP 2CH [facility]: [phone] EF SP 4CH 51 [facility] Work Phone: [phone] EST RAP 3 mmHg [facility] Work Phone: [phone] EST RVSP 29 mmHg [facility] Work Phone: [phone] FS 31 % [facility] Work Phone: [phone] IVC ostium 1.64 cm [facility] Work Phone: [phone] IVS 1.14 cm [facility] Work Phone: [phone] LA area 4CH 29.07 cm2 [facility] Work Phone: [phone] LA ESV BP (MOD) 86 [facility]: [phone] LA ESV BP (MOD) index 45 mL/m2 [facility] Work Phone: [phone] LA ESV SP 2CH (MOD) [address] [facility] Work Phone: [phone] LA ESV SP 4CH (MOD) [address] [facility] Work Phone: [phone] LV EDV BP 88 mL [facility] Work Phone: [phone] LV EDV SP 2CH 85 mL [facility] Work Phone: [phone] LV EDV SP 4CH 86 mL [facility] Work Phone: [phone] LV ESV BP 40 mL [facility] Work Phone: [phone] LV ESV SP 2CH 37 mL [facility] Work Phone: [phone] LV ESV SP 4CH 42 mL [facility] Work Phone: [phone] LV mass 146.48 g [facility] Work Phone: [phone] LV Mass Index 77.1 g/m2 [facility] Work Phone: [phone] LV RWT 0.56 [facility] Work Phone: [phone] LV stroke volume BP (ml) 48 mL [facility] Work Phone: [phone] LV stroke volume index BP 25.26 mL/m2 [facility] Work Phone: [phone] LVIDD 3.93 cm [facility] Work Phone: [phone] LVIDS 2.7 cm [facility] Work Phone: [phone] LVOT area 3.17 cm2 [facility] Work Phone: [phone] LVOT diameter 2.01 cm [facility] Work Phone: [phone] LVOT peak fidel 0.99 m/s [facility] Work Phone: [phone] LVOT peak VTI 21.3 cm [facility] Work Phone: [phone] LVOT stroke volume 68 cm3 [facility] Work Phone: [phone] LVOT stroke volume index 35.55 ml/m2 [facility] Work Phone: MV mean gradient 3 mmHg [facility] Work Phone: [phone] MV peak gradient 6 mmHg [facility] Work Phone: [phone] MV valve area by continuity eq 2.61 cm2 [facility] Work Phone: [phone] MV VTI 25.92 cm [facility] Work Phone: [phone] MVA (continuity VTI) 2.6 cm [facility] Work Phone: [facility] AV VTI RATIO PRE STRESS 0.86 [facility] Work Phone: OSU ECHO LV BIPLANE SYSTOLIC VOLUME INDEX 21.05 mL/m2 [facility] Work Phone: [facility] ECHO LV BP DIASTOLIC VOLUME INDEX 46.32 mL/m2 [facility] Work Phone: [phone] PV mean gradient 3 mmHg [facility]: PV peak gradient 6 [facility] Work Phone: [phone] PV PK FIDEL 1.23 m/s [facility] Work Phone: PW 1.11 cm [facility] Work Phone: [phone] RA area 4CH (MOD) 22.74 cm2 [facility] Work Phone: RA vol index 4CH (MOD) 36.32 mL/m2 [facility] Work Phone: Right atrium volume 4 chamber method of disks 69 mL [facility] Work Phone: RV Area diastolic 17.5 cm2 [facility] Work Phone: RV Area systolic 11.9 cm2 [facility] Work Phone: RV basal diam 4.56 cm [facility] Work Phone: RV Fractional area change 32 % [facility] Work Phone: RV long diam 6.91 cm [facility] Work Phone: RV mid diam 2.91 cm [facility] Work Phone: RV S' 12.81 cm/s [facility] Work Phone: RVOT peak gradient 5 mmHg [facility] Work Phone: RVOT peak fidel 1.07 m/s [facility] Work Phone: [phone] RVOT peak VTI 20.1 cm [facility] Work Phone: Sinus 2.97 cm [facility] Work Phone: STJ 2.58 cm [facility] Work Phone: Stroke Volume 68 cm/mL [facility] Work Phone: Stroke volume index [address] [facility] Work Phone: TAPSE 2.08 cm [facility] Work Phone: TR pk grad 26 mmHg [facility] Work Phone: TR pk fidel 2.53 m/s [facility] Work Phone: [facility] Work Phone: Cardiac echo study Procedure on 08-05-2024 [facility] Radiology Study observation (narrative) [facility] ECHOCARDIOGRAMon 08-05-2024 Echocardiography ? No prior [...] from the original result were not included. [facility] Facility [facility] Patient Information Patient Name ArmandOctober Legal Sex [...] Role Read Date Ezequiel Figueroa DO Echo [place] 08/05/2024 Left Heart Measurements LV - Systole [...] long di (more content not included)... Normal [facility] GLUCOSE POCon 08-05-2024 Glucose [Mass/Vol] 228 mg/dL High 70 - 179 mg/dL [facility] Interpretation and review of laboratory results Abnormal [facility] POC Sample Type CAPBL [facility] IONIZED CALCIUM, WHOLE BLOOD on 08-05-2024 ICA 4.72 mg/dL Normal 4.60-5.30 [facility] Comment on above: Performed By: #### S URGP #### [facility] (DEFAULT) [address] [place] [address] 21067 ICA 4.69 mg/dL Normal 4.60-5.30 [facility] Comment on above: Performed By: #### S URGP #### [facility] (DEFAULT) [address] [place] [address] 57827 IONIZED CALCIUM, WHOLE BLOOD Ordered By: Jairo Layton on 08-05-2024 Calcium.ionized (Bld) [Moles/Vol] 4.69 mg/dL 4.60 - 5.30 mg/dL [facility] Interpretation and review of laboratory results Normal [facility] MAGNESIUMon 08-05-2024 Magnesium [Mass/Vol] 2.4 mg/dL Normal 1.6-2.6 [facility] Comment on above: Performed By: #### S URGP #### [facility] (DEFAULT) [address] [place] [address] 77710 Magnesium [Mass/Vol] 1.8 mg/dL 1.6 - 2 .6 mg/dL [facility] Magnesium [Mass/Vol] 1.8 mg/dL Normal 1.6-2.6 [facility] Comment on above: Performed By: #### X M #### [facility] (DEFAULT) [address] [place] [address] 09012 No Panel Informationon 08-05 Interpretation and review of laboratory results Normal [facility] PHOSPHATE, INORGANICon 08-05 Phosphorous 3.2 mg/dL Normal 2.2-4.6 [facility] Comment on above: Performed By: #### S URGP #### [facility] (DEFAULT) [address] [place] [address] 62175 Phosphate [Mass/Vol] 2.7 mg/dL 2.2 - 4 .6 mg/dL [facility] Phosphorous 2.7 mg/dL Normal 2.2-4.6 [facility] Comment on above: Performed By: #### X M #### [facility] (DEFAULT) [address] [place] [address] [facility] FA[facility] AGOrde red By: Madhavi Mcelroy on 08-05-2024 Interpretation and review of laboratory results Abnormal [facility] vWf Ag actual/normal IA (PPP) [Relative mass conc] 230 % High 50 - 180 % [facility] CBC,PLATELETSon 08-04-2024 Erythrocyte distribution width (RBC) [Ratio] 13.7 % 10.8 - 14.9 % [facility] Hematocrit (Bld) [Volume fraction] 40.8 % 34.9 - 44.3 % [facility] Hemoglobin (Bld) [Mass/Vol] 12.7 g/dL 11.4 - 15.2 g/dL [facility] Interpretation and review of laboratory results Abnormal [facility] MCH (RBC) [Entitic mass] 28.7 pg 25.9 - 33.9 pg [facility] MCHC (RBC) [Mass/Vol] 31.1 g/dL Low 31.4 - 35.9 g/dL [facility] MCV (RBC) [Entitic vol] 92.1 fL 79.6 - 97.7 fL [facility] Platelet mean volume (Bld) [Entitic vol] 10.8 fL 8.5 - 12.2 fL [facility] Platelets (Bld) [#/Vol] 228 10*3/uL 150 - 393 K/uL [facility] RBC (Bld) [#/Vol] 4.43 10*6/uL [facility] WBC (Bld) [#/Vol] 11.41 10*3/uL High 3.99 - 11.19 K/uL [facility] Hematocrit (Bld) [Volume fraction] 40.8 % Normal 34.9-44.3 [facility] Comment on above: Performed By: #### [facility] #### [facility] (DEFAULT) [address] [place] [address] 51012 Hemoglobin (Bld) [Mass/Vol] 12.7 g/dL Normal 11.4-15.2 [facility] Comment on above: Performed By: #### H EMOGC #### [facility] (DEFAULT) [address] [place] [address] 13667 MCV (RBC) [Entitic vol] 92.1 fL Normal 79.6-97.7 [facility] Comment on above: Performed By: #### H EMOGC #### [facility] (DEFAULT) [address] [place] [address] 96018 Mean Cell Hgb 28.7 pg Normal 25.9-33.9 [facility] Comment on above: Performed By: #### H EMOGC #### [facility] (DEFAULT) [address] [place] [address] 91437 Mean Cell Hgb Conc 31.1 g/dL Low 31.4-35.9 [facility] Comment on above: Performed By: #### H EMOGC #### [facility] (DEFAULT) [address] [place] [address] 11749 Platelet mean volume (Bld) [Entitic vol] 10.8 fL Normal 8.5-12.2 [facility] Comment on above: Performed By: #### H EMOGC #### [facility] (DEFAULT) [address] [place] [address] 97864 Platelets (Bld) [#/Vol] 228 10*3/uL Normal 150-393 [facility] Comment on above: Performed By: #### H EMOGC #### [facility] (DEFAULT) [address] [place] [address] 91351 RBC (Bld) [#/Vol] 4.43 10*6/uL Normal 3.91-5.04 [facility] Comment on above: Performed By: #### H EMOGC #### [facility] (DEFAULT) [address] [place] [address] 05669 RBC Distribution 13.7 % Normal 10.8-14.9 [facility] Comment on above: Performed By: #### [facility] #### [facility] (DEFAULT) [address] [place] [address] WBC (Bld) [#/Vol] 11.41 10*3/uL High 3.99-11.19 [facility] Comment on above: Performed By: #### [facility] #### [facility] (DEFAULT) [address] [place] [address] CHEM 7 (LYTES,BUN,CREA,GLUC) Ordered By: Lizette Canseco on 08-04-2024 Anion gap [Moles/Vol] 16 mmol/L 7 - 17 mmol/L [facility] Chloride [Moles/Vol] 109 mmol/L High 98 - 10 8 mmol/L [facility] CO2 [Moles/Vol] 24 mmol/L 21 - 31 mmol/L [facility] Creatinine [Mass/Vol] 1.47 mg/dL High 0.50 - 1.20 mg/dL [facility] eGFR, CKD-EPI, Female 36 Low - PINF [facility] Glucose [Mass/Vol] 181 mg/dL High 70 - 179 mg/dL [facility] Interpretation and review of laboratory results Abnormal [facility] Osmolality Calc [Osmolality] 312 High [facility] Potassium [Moles/Vol] 4 mmol/L 3.5 - 5.0 mmol/L [facility] Sodium [Moles/Vol] 145 mmol/L 135 - 145 mmol/L [facility] Urea nitrogen [Mass/Vol] 26 mg/dL High 7 - 25 mg/dL [facility] Urea nitrogen/Creatinine [Mass ratio] 18 mg/mg [facility] CHEM 7 (LYTES,BUN,CREA,GLUC) on 08-04-2024 Anion gap [Moles/Vol] 16 mmol/L Normal 7-17 [facility] Comment on above: Performed By: #### S URG #### [facility] (DEFAULT) [address] [place] [address] 78904 Chloride [Moles/Vol] 109 mmol/L High 98-108 [facility] Comment on above: Performed By: #### S URGP #### [facility] (DEFAULT) [address] [place] [address] 07354 CO2 [Moles/Vol] 24 mmol/L Normal 21-31 [facility] Comment on above: Performed By: #### S URGP #### [facility] (DEFAULT) [address] [place] [address] 91835 Creatinine [Mass/Vol] 1.47 mg/dL High 0.50-1.20 [facility] Comment on above: Performed By: #### S URGP #### [facility] (DEFAULT) [address] [place] [address] 51752 GFR/1.73 sq M.predicted among non-blacks MDRD (S/P/Bld) [Vol rate/Area] 36 mL/min/{1.73_m2} Low >=60 [facility] Comment on above: Result Comment: Repo rted eGFR is based on the CKD-EPI 2020 equation using creatinine, age, and sex. Performed By: #### S URGP #### [facility] (DEFAULT) [address] [place] [address] 78289 Glucose [Mass/Vol] 181 mg/dL High Nonfastin -179 mg/dL; Fastin-99 [facility] Comment on above: Performed By: #### S URGP #### [facility] (DEFAULT) [address] [place] [address] 51582 Osmolality [Osmolality] 312 mosm/kg High 278-305 [facility] Comment on above: Performed By: #### S URGP #### [facility] (DEFAULT) [address] [place] [address] 59476 Potassium [Moles/Vol] 4.0 mmol/L Normal 3.5-5.0 [facility] Comment on above: Performed By: #### S URGP #### [facility] (DEFAULT) [address] [place] [address] Sodium [Moles/Vol] 145 mmol/L Normal 135-145 [facility] Comment on above: Performed By: #### S URGP #### [facility] (DEFAULT) [address] [place] [address] Urea nitrogen [Mass/Vol] 26 mg/dL High 7-25 [facility] Comment on above: Performed By: #### S URGP #### [facility] (DEFAULT) [address] [place] [address] Urea nitrogen/Creatinine [Mass ratio] 18 mg/mg Normal [facility] Comment on above: Performed By: #### S URGP #### [facility] (DEFAULT) [address] [place] [address] CT HEAD WITHOUT CONTRASTon 0 08-04-2024 CT [...] sinuses are clear. IMPRESSION: Stable exam. Normal [facility] CT Head WO contraston 03-23- 2025 RADIOLOGY RADIOLOGY [facility] CT Head WO contrastOrdered B y: Chirag Mendenhall on 08-04-2024 [facility] Work Phone: GLUCOSE POCon 08-04-2024 Glucose [Mass/Vol] 227 mg/dL High 70 - 179 mg/dL [facility] Interpretation and review of laboratory results Abnormal [facility] POC [facility] Glucose [Mass/Vol] 235 mg/dL High 70 - 179 mg/dL [facility] Interpretation and review of laboratory results Abnormal [facility] POC Sample Type [facility] Glucose [Mass/Vol] 215 mg/dL High 70 - 179 mg/dL [facility] Interpretation and review of laboratory results Abnormal [facility] POC Sample Type CAPBL [facility] Glucose [Mass/Vol] 178 mg/dL 70 - 179 mg/dL [facility] Glucose [Mass/Vol] 157 mg/dL 70 - 179 mg/dL [facility] Glucose [Mass/Vol] 271 mg/dL High 70 - 179 mg/dL [facility] Glucose [Mass/Vol] 267 mg/dL High 70 - 179 mg/dL [facility] Glucose [Mass/Vol] 246 mg/dL High 70 - 179 mg/dL [facility] IONIZED CALCIUM, WHOLE BLOOD Ordered By: Laura Rodriguez on 08-04-2024 Calcium.ionized (Bld) [Moles/Vol] 4.8 mg/dL 4.60 - 5.30 mg/dL [facility] Interpretation and review of laboratory results Normal [facility] IONIZED CALCIUM, WHOLE BLOOD on 08-04-2024 ICA 4.80 mg/dL Normal 4.60-5.30 [facility] Comment on above: Performed By: #### T YPEC #### [facility] (DEFAULT) [address] [place] [address] 72444 MAGNESIUMon 08-04-2024 Magnesium [Mass/Vol] 1.9 mg/dL 1.6 - 2 .6 mg/dL [facility] Magnesium [Mass/Vol] 1.9 mg/dL Normal 1.6-2.6 [facility] Comment on above: Performed By: #### X M #### [facility] (DEFAULT) [address] [place] [address] 79054 No Panel Informationon 08-04 POC Sample Type CAPBL [facility] Interpretation and review of laboratory results Abnormal [facility] Interpretation and review of laboratory results Normal [facility] PHOSPHATE, INORGANICon 08-04 Phosphate [Mass/Vol] 2.8 mg/dL 2.2 - 4 .6 mg/dL [facility] Phosphorous 2.8 mg/dL Normal 2.2-4.6 [facility] Comment on above: Performed By: #### X M #### [facility] (DEFAULT) [address] [place] [address] 28875 SODIUMon 08-04-2024 Interpretation and review of laboratory results Normal [facility] Sodium [Moles/Vol] 142 mmol/L 135 - 145 mmol/L [facility] Sodium [Moles/Vol] 142 mmol/L Normal 135-145 [facility] Comment on above: Order Comment: While on 3% Hypertonic Saline. Performed By: #### S URGP #### [facility] (DEFAULT) [address] [place] [address] 28877 Interpretation and review of laboratory results Normal [facility] Sodium [Moles/Vol] 141 mmol/L 135 - 145 mmol/L [facility] Sodium [Moles/Vol] 141 mmol/L Normal 135-145 [facility] Comment on above: Order Comment: 2 [...] bottle. Performed By: #### B LDCULT #### [facility] (DEFAULT) [address] [place] [address] Interpretation and review of laboratory results Normal [facility] Sodium [Moles/Vol] 143 mmol/L 135 - 145 mmol/L [facility] Sodium [Moles/Vol] 143 mmol/L Normal 135-145 [facility] Comment on above: Order Comment: While on 3% Hypertonic Saline. Performed By: #### [facility] #### [facility] (DEFAULT) [address] [place], [place] [id number] ABORH TYPE RECONFIRMATIONon 08-03-2024 ABO/RH(D) TYPE Negative [facility] ABO/RH(D) TYPE Negative Normal [facility] Comment on above: Performed By: #### T YPEC #### [facility] (DEFAULT) [address] [place] [address] 19132 CBC,PLATELETSon 08-03-2024 Erythrocyte distribution width (RBC) [Ratio] 13.2 % 10.8 - 14.9 % [facility] Hematocrit (Bld) [Volume fraction] 42.8 % 34.9 - 44.3 % [facility] Hemoglobin (Bld) [Mass/Vol] 13.5 g/dL 11.4 - 15.2 g/dL [facility] Interpretation and review of laboratory results Normal [facility] MCH (RBC) [Entitic mass] 29.2 pg 25.9 - 33.9 pg [facility] MCHC (RBC) [Mass/Vol] 31.5 g/dL 31.4 - 35.9 g/dL [facility] MCV (RBC) [Entitic vol] 92.4 fL 79.6 - 97.7 fL [facility] Platelet mean volume (Bld) [Entitic vol] 11.2 fL 8.5 - 12.2 fL [facility] Platelets (Bld) [#/Vol] 227 10*3/uL 150 - 393 K/uL [facility] RBC (Bld) [#/Vol] 4.63 10*6/uL [facility] WBC (Bld) [#/Vol] 8.43 10*3/uL 3.99 - 11.19 K/uL [facility] Hematocrit (Bld) [Volume fraction] 42.8 % Normal 34.9-44.3 [facility] Comment on above: Performed By: #### X M #### [facility] (DEFAULT) [address] [place] [address] 26093 Hemoglobin (Bld) [Mass/Vol] 13.5 g/dL Normal 11.4-15.2 [facility] Comment on above: Performed By: #### X M #### [facility] (DEFAULT) [address] [place] [address] 50762 MCV (RBC) [Entitic vol] 92.4 fL Normal 79.6-97.7 [facility] Comment on above: Performed By: #### X M #### [facility] (DEFAULT) [address] [place] [address] 79791 Mean Cell Hgb 29.2 pg Normal 25.9-33.9 [facility] Comment on above: Performed By: #### X M #### [facility] (DEFAULT) [address] [place] [address] 52187 Mean Cell Hgb Conc 31.5 g/dL Normal 31.4-35.9 [facility] Comment on above: Performed By: #### X M #### [facility] (DEFAULT) [address] [place] [address] 66214 Platelet mean volume (Bld) [Entitic vol] 11.2 fL Normal 8.5-12.2 [facility] Comment on above: Performed By: #### X M #### [facility] (DEFAULT) [address] [place] [address] 42729 Platelets (Bld) [#/Vol] 227 10*3/uL Normal 150-393 [facility] Comment on above: Performed By: #### X M #### [facility] (DEFAULT) [address] [place] [address] 70420 RBC (Bld) [#/Vol] 4.63 10*6/uL Normal 3.91-5.04 [facility] Comment on above: Performed By: #### X M #### [facility] (DEFAULT) [address] [place] [address] 98652 RBC Distribution 13.2 % Normal 10.8-14.9 [facility] Comment on above: Performed By: #### X M #### [facility] (DEFAULT) [address] [place] [address] 89668 WBC (Bld) [#/Vol] 8.43 10*3/uL Normal 3.99-11.19 [facility] Comment on above: Performed By: #### X M #### [facility] (DEFAULT) [address] [place] [address] CHEM 7 (LYTES,BUN,CREA,GLUC) on 08-03-2024 Anion gap [Moles/Vol] 16 mmol/L 7 - 17 mmol/L [facility] Chloride [Moles/Vol] 103 mmol/L 98 - 10 8 mmol/L [facility] CO2 [Moles/Vol] 23 mmol/L 21 - 31 mmol/L [facility] Creatinine [Mass/Vol] 1.35 mg/dL High 0.50 - 1.20 mg/dL [facility] eGFR, CKD-EPI, Female 40 Low - PINF [facility] Glucose [Mass/Vol] 151 mg/dL 70 - 179 mg/dL [facility] Interpretation and review of laboratory results Abnormal [facility] Osmolality Calc [Osmolality] 295 [facility] Potassium [Moles/Vol] 4.3 mmol/L 3.5 - 5.0 mmol/L [facility] Sodium [Moles/Vol] 138 mmol/L 135 - 145 mmol/L [facility] Urea nitrogen [Mass/Vol] 18 mg/dL 7 - 25 mg/dL [facility] Urea nitrogen/Creatinine [Mass ratio] 13 mg/mg [facility] Anion gap [Moles/Vol] 16 mmol/L Normal 7-17 [facility] Comment on above: Performed By: #### S URGP #### [facility] (DEFAULT) [address] [address] Chloride [Moles/Vol] 103 mmol/L Normal 98-108 [facility] Comment on above: Performed By: #### S URGP #### [facility] (DEFAULT) [address] [address] CO2 [Moles/Vol] 23 mmol/L Normal 21-31 [facility] Comment on above: Performed By: #### S URGP #### [facility] (DEFAULT) [address] [address] Creatinine [Mass/Vol] 1.35 mg/dL High 0.50-1.20 [facility] Comment on above: Performed By: #### S URGP #### [facility] (DEFAULT) [address] [address] GFR/1.73 sq M.predicted among non-blacks MDRD (S/P/Bld) [Vol rate/Area] 40 mL/min/{1.73_m2} Low >=60 [facility] Comment on above: Result Comment: Repo rted eGFR is based on the CKD-EPI 2020 equation using creatinine, age, and sex. Performed By: #### S URGP #### [facility] (DEFAULT) [address] [address] Glucose [Mass/Vol] 151 mg/dL Normal Nonfastin -179 mg/dL; Fastin-99 [facility] Comment on above: Performed By: #### S URGP #### [facility] (DEFAULT) [address] [place] [address] Osmolality [Osmolality] 295 mosm/kg Normal 278-305 [facility] Comment on above: Performed By: #### S URGP #### [facility] (DEFAULT) [address] [place] [address] Potassium [Moles/Vol] 4.3 mmol/L Normal 3.5-5.0 [facility] Comment on above: Result Comment: Spec imen slightly hemolyzed. Potassium results may be falsey elevated by more than 0.5 mmol/L. Consider recollection. Performed By: #### S URGP #### [facility] (DEFAULT) [address] [place] [address] Sodium [Moles/Vol] 138 mmol/L Normal 135-145 [facility] Comment on above: Performed By: #### S URGP #### [facility] (DEFAULT) [address] [place] [address] Urea nitrogen [Mass/Vol] 18 mg/dL Normal 7-25 [facility] Comment on above: Performed By: #### S URGP #### [facility] (DEFAULT) [address] [place] [address] Urea nitrogen/Creatinine [Mass ratio] 13 mg/mg Normal [facility] Comment on above: Performed By: #### S URGP #### [facility] (DEFAULT) [address] [place] [address] CHEST WITH CONTRAST VASCU LAR TRAUMAon [...] have reviewed and approved this report. Normal [facility] CT Cervical spine WO contras ton 08-03-2024 [facility] contras tOrdered By: Alissa Chun on 08-03-2024 [facility] Work Phone: CT Chest W contrast Seth RADIOLOGY RADIOLOGY [facility] CT Chest W contrast IVOrdere d By: Kayla Newell on 08-03-2024 [facility] Work Phone: CT HEAD WITHOUT CONTRASTon 0 [...] since the MRI from earlier today Normal [facility] CT Head WO contraston 2024 Radiology Study observation (narrative) [facility] RADIOLOGY RADIOLOGY [facility] Radiology Study observation (narrative) [facility] CT ORBITS WITHOUT CONTRASTon 08-03-2024 CT [...] basal ganglia hyperdensity concerning for hemorrhage. Normal [facility] CT Orbit WO contraston 08-03 RADIOLOGY RADIOLOGY [facility] CT SPINE CERVICAL WITHOUT CO NTRASTon [...] No evidence of acute fractures identified Normal [facility] EXTRA MICROon 08-03-2024 [facility] GLUCOSE POCon 08-03-2024 Glucose [Mass/Vol] 161 mg/dL 70 - 179 mg/dL [facility] POC Sample Type CAPBL [facility] IONIZED CALCIUM, WHOLE BLOOD Ordered By: Alejandra Ness on 08-03-2024 Calcium.ionized (Bld) [Moles/Vol] 4.24 mg/dL Low 4.60 - 5.30 mg/dL [facility] Interpretation and review of laboratory results Abnormal [facility] IONIZED CALCIUM, WHOLE BLOOD on 08-03-2024 ICA 4.24 mg/dL Low 4.60-5.30 [facility] Comment on above: Performed By: #### H EMOGC #### [facility] (DEFAULT) [address] [place] [address] MAGNESIUMon 08-03-2024 Magnesium [Mass/Vol] 2.1 mg/dL 1.6 - 2 .6 mg/dL [facility] Magnesium [Mass/Vol] 2.1 mg/dL Normal 1.6-2.6 [facility] Comment on above: Performed By: #### S URGP #### [facility] (DEFAULT) [address] [place] [address] MR Brain WO contraston 08-03 RADIOLOGY RADIOLOGY [facility] Radiology Study observation (narrative) [facility] MR Cervical spine WO contras ton 08-03-2024 RADIOLOGY RADIOLOGY [facility] Radiology Study observation (narrative) [facility] MR Cervical spine WO contras tOrdered By: Kuldeep Tavares on 08-03-2024 [facility] Work Phone: MRI BRAIN WITHOUT CONTRASTon 08-03-2024 [...] tiny 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 Normal [facility] MRI SPINE CERVICAL WITHOUT C [facility] 08-03-2024 MRI SPINE CERVICAL WITHOUT CONTRAST EXAM: [...] have reviewed and approved this report. Normal [facility] NT-PRO B-TYPE NATRIURETIC PE PTIDEon 08-03-2024 Interpretation and review of laboratory results Abnormal [facility] Natriuretic peptide.B prohormone N-Terminal IA [Mass/Vol] 1115 pg/mL High NINF - 540 pg/mL [facility] No Panel Informationon 08-03 RADIOLOGY RADIOLOGY [facility] Interpretation and review of laboratory results Normal [facility] No Panel InformationOrdered By: Richard Sánchez on 08-03-2024 [facility] Work Phone: PHOSPHATE, INORGANICon 08-03 Phosphate [Mass/Vol] 3.5 mg/dL 2.2 - 4 .6 mg/dL [facility] Phosphorous 3.5 mg/dL Normal 2.2-4.6 [facility] Comment on above: Performed By: #### S URGP #### [facility] (DEFAULT) [address] [place] [address] SCREEN: MRSA/MSSAOrdered By: Gail Collado on 08-03-2024 Interpretation and review of laboratory results Normal [facility] Methicillin Resistant S. Aureus By Pcr Negative Negative [facility] Staphylococcus Aureus By Pcr Negative Negative [facility] SODIUMon 08-03-2024 Interpretation and review of laboratory results Normal [facility] Sodium [Moles/Vol] 139 mmol/L 135 - 145 mmol/L [facility] Sodium [Moles/Vol] 139 mmol/L Normal 135-145 [facility] Comment on above: Order Comment: While on 3% Hypertonic Saline. Performed By: #### N AO ####[facility] (DEFAULT)[address] [place] [address] Interpretation and review of laboratory results Abnormal [facility] Sodium [Moles/Vol] 134 mmol/L Low 135 - 145 mmol/L [facility] Sodium [Moles/Vol] 134 mmol/L Low 135-145 [facility] Comment on above: Order Comment: While on 3% Hypertonic Saline. Performed By: #### [facility] #### [facility] (DEFAULT) [address] [place], [place] [id number] XR ABDOMEN 1 VIEW PORTABLEon 08-03-2024 XR [...] proximal second portion of the duodenum. Normal [facility] XR Abdomen Single viewon RADIOLOGY RADIOLOGY [facility] Radiology Study observation (narrative) [facility] XR Abdomen Single viewOrdere d By: Huey Gibson on 08-03-2024 [facility] XR ELBOW RIGHT 2 VIEWSon XR ELBOW RIGHT 2 VIEWS EXAM: XR ELBOW RI GHT 2 VIEWS, XR HUMERUS RIGHT 2+ VIEWS, XR WRIST RIGHT 3+ VIEWS, 08/02/2024 23:24 PM (accession [id number]), 08/02/2024 23:24 PM (accession [id number]), 08/02/2024 23:23 PM (accession [id number]) COMPARISON: No prior studies available for comparison. [...] dislocation. IMPRESSION: No acute osseous abnormality. Normal [facility] XR HUMERUS RIGHT 2+ VIEWSon 08-03-2024 XR HUMERUS RIGHT 2+ VIEWS EXAM: XR ELBOW RIGHT 2 VIEWS, XR HUMERUS RIGHT 2+ VIEWS, XR WRIST RIGHT 3+ VIEWS, 08/02/2024 23:24 PM (accession [id number]), 08/02/2024 23:24 PM (accession [id number]), 08/02/2024 23:23 PM (accession [id number]) COMPARISON: No prior studies available for comparison. [...] dislocation. IMPRESSION: No acute osseous abnormality. Normal [facility] XR WRIST RIGHT 3+ VIEWSon XR WRIST RIGHT 3+ VIEWS EXAM: XR ELBOW R IGHT 2 VIEWS, XR HUMERUS RIGHT 2+ VIEWS, XR WRIST RIGHT 3+ VIEWS, 08/02/2024 23:24 PM (accession [id number]), 08/02/2024 23:24 PM (accession [id number]), 08/02/2024 23:23 PM (accession [id number]) COMPARISON: No prior studies available for comparison. [...] dislocation. IMPRESSION: No acute osseous abnormality. Normal [facility] 12 Lead EKGon 08-02-2024 12 Lead EKG [facility] [address] [place] [address] 12 Lead EKG 08/02/24 1309 MR#: [id number] Acct: [id number] Name: LINDSAY ACUNA Rep #: [id number] : 1945 78 From: Mj Benavides MD [...] ECG Confirmed by MAKAYLA LAWSON, MJ ([id number]), magazine editor NAIMA BEARDEN ([id number]) on 08/05/2024 6:47:07 AM Referred By: Confirmed By: MJ BENAVIDES MD 08/05/24 0647 Date Mj Benavides MD CC: Dr. Pieter Morgan MD; Dr. Kameron Caruso MD Signed Normal [facility] Absolute lymphocyte countOrd ered By: Pieter Morgan on 08-02-2024 Lymphocytes Auto (Unsp spec) [#/Vol] 1.56 10*3/uL 0.83-4.51 [facility] Absolute neutrophil countOrd ered By: Pieter Morgan on 08-02-2024 Neutrophils (Bld) [#/Vol] 6.2 10*3/uL 2.0-7.7 [facility] Activated partial thrombopla stin time (aPTT) in platelet poor plasma by coagulation aOrdered By: Pieter Morgan on 08-02-2024 aPTT Coag (PPP) [Time] 28.4 s 24.1-36.2 [facility] Anion gap in Serum or Plasma Ordered By: Pieter Morgan on 08-02-2024 Anion gap [Moles/Vol] 12 mmol/L 5-15 [facility] Automated lymphocyte count a s percentage of total leukocytesOrdered By: Pieter Morgan on 08-02-2024 Lymphocytes/100 WBC Auto (Unsp spec) 17.9 % Low [facility] BUN/creatinine ratioOrdered By: Pieter Morgan on 08-02-2024 Urea nitrogen/Creatinine [Mass ratio] 11.6 mg/mg 03-03 [facility] Basic Metabolic Profile (BMP )on 08-02-2024 BUN/CRE 11.6 RATIO Normal 03-03 [facility] Comment on above: Performed By: #### L 300.4310, L501.4021, L300.3900, L500.2500, L100.0100 #### [facility] [address] [place], [address] Calcium [Mass/Vol] 9.0 mg/dL Normal 7.6-11.0 [facility] Comment on above: Performed By: #### L 300.4310, L501.4021, L300.3900, L500.2500, L100.0100 #### [facility] [address] [place], [address] Chloride [Moles/Vol] 98 mmol/L Normal 98-108 [facility] Comment on above: Performed By: #### L 300.4310, L501.4021, L300.3900, L500.2500, L100.0100 #### [facility] [address] [place], [address] CO2 [Moles/Vol] 22.0 mmol/L Normal 21.0-32.0 [facility] Comment on above: Performed By: #### L 300.4310, L501.4021, L300.3900, L500.2500, L100.0100 #### [facility] [address] [place], [address] Creatinine [Mass/Vol] 1.74 mg/dL High 0.70-1.20 [facility] Comment on above: Performed By: #### L 300.4310, L501.4021, L300.3900, L500.2500, L100.0100 #### [facility] [address] [place], [address] ECRCL 27.14 ml/min Low 50-250 [facility] Comment on above: Performed By: #### L 300.4310, L501.4021, L300.3900, L500.2500, L100.0100 #### [facility] [address] [place], [address] GAP 12 Normal 5-15 [facility] Comment on above: Performed By: #### L 300.4310, L501.4021, L300.3900, L500.2500, L100.0100 #### [facility] [address] [place], [address] GFR/1.73 sq M.predicted among non-blacks MDRD (S/P/Bld) [Vol rate/Area] 29 mL/min/{1.73_m2} Low >60 [facility] Comment on above: Result Comment: mL/m in/1.73m2 CKD-EPI Creatinine Equation (2020) Performed By: #### L 300.4310, L501.4021, L300.3900, L500.2500, L100.0100 #### [facility] [address] [place], [address] Glucose [Mass/Vol] 235 mg/dL High 70-99 [facility] Comment on above: Performed By: #### L 300.4310, L501.4021, L300.3900, L500.2500, L100.0100 #### [facility] [address] [place], [address] Potassium [Moles/Vol] 4.2 mmol/L Normal 3.3-5.1 [facility] Comment on above: Performed By: #### L 300.4310, L501.4021, L300.3900, L500.2500, L100.0100 #### [facility] [address] [place], [address] Sodium [Moles/Vol] 132 mmol/L Low 133-145 [facility] Comment on above: Performed By: #### L 300.4310, L501.4021, L300.3900, L500.2500, L100.0100 #### [facility] [address] [place], [address] Urea nitrogen [Mass/Vol] 20 mg/dL High 4-19 [facility] Comment on above: Performed By: #### L 300.4310, L501.4021, L300.3900, L500.2500, L100.0100 #### [facility] [address] [place], [address] Basophil percentageOrdered B y: Pieter Morgan on 08-02-2024 Basophils/100 WBC (Bld) 0.5 % 0-1 [facility] CBC W/Diff, Automatedon 07-14 Absolute Lymph 1.56 X10 3/uL Normal 0.83-4.51 [facility] Comment on above: Performed By: #### L 300.4310, L501.4021, L300.3900, L500.2500, L100.0100 #### [facility] [address] [place], [address] Absolute Neut 6.2 X10 3/uL Normal 2.0-7.7 [facility] Comment on above: Performed By: #### L 300.4310, L501.4021, L300.3900, L500.2500, L100.0100 #### [facility] [address] [place], [address] Basophils/100 WBC (Bld) 0.5 % Normal 0-1 [facility] Comment on above: Performed By: #### L 300.4310, L501.4021, L300.3900, L500.2500, L100.0100 #### [facility] [address] [place], [address] Eosinophils/100 WBC (Bld) 1.0 % Normal 0-5 [facility] Comment on above: Performed By: #### L 300.4310, L501.4021, L300.3900, L500.2500, L100.0100 #### [facility] [address] [place], [address] Erythrocyte distribution width (RBC) [Ratio] 13.3 % Normal 11.6-14.6 [facility] Comment on above: Performed By: #### L 300.4310, L501.4021, L300.3900, L500.2500, L100.0100 #### [facility] [address] [place], [address] Hematocrit (Bld) [Volume fraction] 42.0 % Normal 37-47 [facility] Comment on above: Performed By: #### L 300.4310, L501.4021, L300.3900, L500.2500, L100.0100 #### [facility] [address] [place], [address] Hemoglobin (Bld) [Mass/Vol] 13.8 g/dL Normal 12.0-15.0 [facility] Comment on above: Performed By: #### L 300.4310, L501.4021, L300.3900, L500.2500, L100.0100 #### [facility] [address] [place], [address] IG% 0.300 Normal 0.0-0.9 [facility] Comment on above: Result Comment: IG% - Immature Granulocytes (promyelocytes, myelocytes and metamyelocytes) > 1% indicates that a LEFT SHIFT is Present. Performed By: #### L 300.4310, L501.4021, L300.3900, L500.2500, L100.0100 #### [facility] [address] [place], [address] Lymphocytes/100 WBC (Bld) 17.9 % Low 19-41 [facility] Comment on above: Performed By: #### L 300.4310, L501.4021, L300.3900, L500.2500, L100.0100 #### [facility] [address] [place], [address] MCH (RBC) [Entitic mass] 30.3 pg Normal 27.0-32.0 [facility] Comment on above: Performed By: #### L 300.4310, L501.4021, L300.3900, L500.2500, L100.0100 #### [facility] [address] [place], [address] MCHC (RBC) [Mass/Vol] 32.9 g/dL Normal 32-36 [facility] Comment on above: Performed By: #### L 300.4310, L501.4021, L300.3900, L500.2500, L100.0100 #### [facility] [address] [place], [address] MCV (RBC) [Entitic vol] 92.1 fL Normal 81-99 [facility] Comment on above: Performed By: #### L 300.4310, L501.4021, L300.3900, L500.2500, L100.0100 #### [facility] [address] [place], [address] Monocytes/100 WBC (Bld) 8.9 % Normal 0-10 [facility] Comment on above: Performed By: #### L 300.4310, L501.4021, L300.3900, L500.2500, L100.0100 #### [facility] [address] [place], [address] Neutrophils/100 WBC (Bld) 71.4 % High 47-70 [facility] Comment on above: Performed By: #### L 300.4310, L501.4021, L300.3900, L500.2500, L100.0100 #### [facility] [address] [place], [address] Nucleated RBC (Bld) [#/Vol] 0 10*3/uL Normal 0-5 [facility] Comment on above: Performed By: #### L 300.4310, L501.4021, L300.3900, L500.2500, L100.0100 #### [facility] [address] [place], [address] Platelet mean volume (Bld) [Entitic vol] 10.7 fL Normal 6.2-12.0 [facility] Comment on above: Performed By: #### L 300.4310, L501.4021, L300.3900, L500.2500, L100.0100 #### [facility] [address] [place], [address] Platelets (Bld) [#/Vol] 214 10*3/uL Normal 150-450 [facility] Comment on above: Performed By: #### L 300.4310, L501.4021, L300.3900, L500.2500, L100.0100 #### [facility] [address] [place], [address] RBC (Bld) [#/Vol] 4.56 10*6/uL Normal 4.2-5.4 [facility] Comment on above: Performed By: #### L 300.4310, L501.4021, L300.3900, L500.2500, L100.0100 #### [facility] [address] [place], [address] RDW SD 45.3 fl High 35.1-43.9 [facility] Comment on above: Performed By: #### L 300.4310, L501.4021, L300.3900, L500.2500, L100.0100 #### [facility] [address] [place], [address] WBC (Bld) [#/Vol] 8.7 10*3/uL Normal 4.4-11.0 [facility] Comment on above: Performed By: #### L 300.4310, L501.4021, L300.3900, L500.2500, L100.0100 #### [facility] [address] [place], [address] CBC,PLATELETSon 08-02-2024 Erythrocyte distribution width (RBC) [Ratio] 13.3 % 10.8 - 14.9 % [facility] Hematocrit (Bld) [Volume fraction] 43.8 % 34.9 - 44.3 % [facility] Hemoglobin (Bld) [Mass/Vol] 14 g/dL 11.4 - 15.2 g/dL [facility] Interpretation and review of laboratory results Normal [facility] MCH (RBC) [Entitic mass] 29.4 pg 25.9 - 33.9 pg [facility] MCHC (RBC) [Mass/Vol] 32 g/dL 31.4 - 35.9 g/dL [facility] MCV (RBC) [Entitic vol] 92 fL 79.6 - 97.7 fL [facility] Platelet mean volume (Bld) [Entitic vol] 10.8 fL 8.5 - 12.2 fL [facility] Platelets (Bld) [#/Vol] 245 10*3/uL 150 - 393 K/uL [facility] RBC (Bld) [#/Vol] 4.76 10*6/uL [facility] WBC (Bld) [#/Vol] 8.16 10*3/uL 3.99 - 11.19 K/uL [facility] Hematocrit (Bld) [Volume fraction] 43.8 % Normal 34.9-44.3 [facility] Comment on above: Performed By: #### B LDCULT #### [facility] (DEFAULT) [address] [place] [address] Hemoglobin (Bld) [Mass/Vol] 14.0 g/dL Normal 11.4-15.2 [facility] Comment on above: Performed By: #### B LDCULT #### [facility] (DEFAULT) [address] [address] MCV (RBC) [Entitic vol] 92.0 fL Normal 79.6-97.7 [facility] Comment on above: Performed By: #### B LDCULT #### [facility] (DEFAULT) [address] [address] Mean Cell Hgb 29.4 pg Normal 25.9-33.9 [facility] Comment on above: Performed By: #### B LDCULT #### [facility] (DEFAULT) [address] [place] [address] Mean Cell Hgb Conc 32.0 g/dL Normal 31.4-35.9 [facility] Comment on above: Performed By: #### B LDCULT #### [facility] (DEFAULT) [address] [address] Platelet mean volume (Bld) [Entitic vol] 10.8 fL Normal 8.5-12.2 [facility] Comment on above: Performed By: #### B LDCULT #### [facility] (DEFAULT) [address] [address] Platelets (Bld) [#/Vol] 245 10*3/uL Normal 150-393 [facility] Comment on above: Performed By: #### B LDCULT #### [facility] (DEFAULT) [address] [place] [address] RBC (Bld) [#/Vol] 4.76 10*6/uL Normal 3.91-5.04 [facility] Comment on above: Performed By: #### B LDCULT #### [facility] (DEFAULT) [address] [place] [address] RBC Distribution 13.3 % Normal 10.8-14.9 [facility] Comment on above: Performed By: #### B LDCULT #### [facility] (DEFAULT) [address] [place] [address] WBC (Bld) [#/Vol] 8.16 10*3/uL Normal 3.99-11.19 [facility] Comment on above: Performed By: #### B LDCULT #### [facility] (DEFAULT) [address] [place] [address] CHEM 7 (LYTES,BUN,CREA,GLUC) on 08-02-2024 Anion gap [Moles/Vol] 16 mmol/L 7 - 17 mmol/L [facility] Chloride [Moles/Vol] 105 mmol/L 98 - 10 8 mmol/L [facility] CO2 [Moles/Vol] 22 mmol/L 21 - 31 mmol/L [facility] Creatinine [Mass/Vol] 1.37 mg/dL High 0.50 - 1.20 mg/dL [facility] eGFR, CKD-EPI, Female 39 Low - PINF [facility] Glucose [Mass/Vol] 210 mg/dL High 70 - 179 mg/dL [facility] Osmolality Calc [Osmolality] 299 [facility] Potassium [Moles/Vol] 3.7 mmol/L 3.5 - 5.0 mmol/L [facility] Sodium [Moles/Vol] 139 mmol/L 135 - 145 mmol/L [facility] Urea nitrogen [Mass/Vol] 18 mg/dL 7 - 25 mg/dL [facility] Urea nitrogen/Creatinine [Mass ratio] 13 mg/mg [facility] Anion gap [Moles/Vol] 16 mmol/L Normal 7-17 [facility] Comment on above: Performed By: #### [facility] #### [facility] (DEFAULT) [address] [place] [address] Chloride [Moles/Vol] 105 mmol/L Normal 98-108 [facility] Comment on above: Performed By: #### [facility] #### [facility] (DEFAULT) [address] [address] CO2 [Moles/Vol] 22 mmol/L Normal 21-31 [facility] Comment on above: Performed By: #### [facility] #### [facility] (DEFAULT) [address] [place] [address] Creatinine [Mass/Vol] 1.37 mg/dL High 0.50-1.20 [facility] Comment on above: Performed By: #### [facility] #### [facility] (DEFAULT) [address] [place] [address] GFR/1.73 sq M.predicted among non-blacks MDRD (S/P/Bld) [Vol rate/Area] 39 mL/min/{1.73_m2} Low >=60 [facility] Comment on above: Result Comment: Repo rted eGFR is based on the CKD-EPI 2020 equation using creatinine, age, and sex. Performed By: #### [facility] #### [facility] (DEFAULT) [address] [place] [address] 18330 Glucose [Mass/Vol] 210 mg/dL High Nonfastin -179 mg/dL; Fastin-99 [facility] Comment on above: Performed By: #### [facility] #### [facility] (DEFAULT) [address] [place] [address] 28953 Osmolality [Osmolality] 299 mosm/kg Normal 278-305 [facility] Comment on above: Performed By: #### H EMOGC #### [facility] (DEFAULT) [address] [place] [address] 48956 Potassium [Moles/Vol] 3.7 mmol/L Normal 3.5-5.0 [facility] Comment on above: Performed By: #### H EMOGC #### [facility] (DEFAULT) [address] [place] [address] 81231 Sodium [Moles/Vol] 139 mmol/L Normal 135-145 [facility] Comment on above: Performed By: #### H EMOGC #### [facility] (DEFAULT) [address] [place] [address] 03200 Urea nitrogen [Mass/Vol] 18 mg/dL Normal 7-25 [facility] Comment on above: Performed By: #### H EMOGC #### [facility] (DEFAULT) [address] [place] [address] 70337 Urea nitrogen/Creatinine [Mass ratio] 13 mg/mg Normal [facility] Comment on above: Performed By: #### H EMOGC #### [facility] (DEFAULT) [address] [place] [address] ABDOMEN/PELVIS WITH CONTR AST VASCULAR TRAUMAon [...] grade: None. Kidney trauma grade: None. Normal [facility] CT Abdomen and Pelvis W cont rast Seth 08-02-2024 RADIOLOGY RADIOLOGY [facility] CT Abdomen and Pelvis W cont rast IVOrdered By: Edson Head on 08-02-2024 [facility] Work Phone: CT Cervical spine WO contras ton 08-02-2024 Radiology Study observation (narrative) [facility] CT Orbit WO contraston 08-02 Radiology Study observation (narrative) [facility] Carbon dioxide, total [Moles /volume] in Central venous bloodOrdered By: Pieter Morgan on 08-02-2024 CO2 [Moles/Vol] 22.0 mmol/L 21.0-32.0 [facility] Chloride assayOrdered By: Racheal Morgan on 08-02-2024 Chloride [Moles/Vol] 98 mmol/L 98-108 [facility] Emergency Department Summary on 08-02-2024 Emergency Department Summary [facility] Medical Records Department [address] [place] [address] Emergency Department Summary 08/02/24 MR#: [id number] Acct: [id number] Name: LINDSAY ACUNA Rep #: [id number] : 1945 78 From: Pieter Morgan MD [...] the EMR. states they returned home from [facility] about 1.5-2 weeks ago, and they both had colds. He is better, but she is "on round 2." [facility] Medical History Paroxysmal atrial fibrillation with RVR [...] normal respir (more content not included)... Normal [facility] Eosinophil percentageOrdered By: Pieter Morgan on 08-02-2024 Eosinophils/100 WBC (Bld) 1.0 % 0-5 [facility] Erythrocyte distribution wid th ratioOrdered By: Pieter Morgan on 08-02-2024 Erythrocyte distribution width (RBC) [Ratio] 13.3 % 11.6-14.6 [facility] Erythrocyte distribution wid th standard deviationOrdered By: Pieter Morgan on 08-02-2024 Erythrocyte distribution width (RBC) [Entitic vol] 45.3 fL High 35.1-43.9 [facility] Erythrocyte distribution width (RBC) [Ratio] 45.3 fl High 35.1-43.9 [facility] Estimation of creatinine mackenzie aranceOrdered By: Pieter Morgan on 08-02-2024 Estimated Creatinine Clearance Calc 27.14 ml/min Low 50-250 [facility] GFR/1.73 sq M.predicted lana g non-blacks MDRD (S/P/Bld) [Vol rate/Area]Ordered By: Pieter Morgan on 08-02-2024 Estimated GFR (MDRD) Non-Af Amer 29 Low >60 [facility] Comment on above: mL/min/1.73m2 CKD-EP I Creatinine Equation (2020) Glomerular filtration rate ( GFR) estimation/1.73 sq m using serum, plasma, or whole bOrdered By: Pieter Morgan on 08-02-2024 GFR/1.73 sq M.predicted among non-blacks MDRD (S/P/Bld) [Vol rate/Area] 29 mL/min/{1.73_m2} Low >60 [facility] Comment on above: mL/min/1.73m2 CKD-EP I Creatinine Equation (2020) HEMOGLOBIN A1Con 08-02-2024 Average glucose Estimated from glycated hemoglobin (Bld) [Mass/Vol] 177 mg/dL [facility] HbA1c (Bld) [Mass fraction] 7.8 % High 4.7 - 5.6 % [facility] Interpretation and review of laboratory results Abnormal [facility] Glucose [Mass/Vol] 177 mg/dL Normal [facility] Comment on above: Performed By: #### H EMO #### [facility] (DEFAULT) [address] [address] Hemoglobin A1C HPLC 7.8 % High 4.7-5.6 [facility] Comment on above: Performed By: #### [facility] #### [facility] (DEFAULT) [address] [place] [address] 41583 HEPATIC FUNCTION PANELon Albumin [Mass/Vol] 3.5 g/dL 3.5 - 5.0 g/dL [facility] ALP [Catalytic activity/Vol] 117 U/L 32 - 126 U/L [facility] ALT [Catalytic activity/Vol] 10 U/L 9 - 48 U/L [facility] AST [Catalytic activity/Vol] 17 U/L 10 - 39 U/L [facility] Bilirubin [Mass/Vol] 0.6 mg/dL [facility] mg/dL [facility] Bilirubin.direct [Mass/Vol] 0.1 mg/dL NINF - 0.3 mg/dL [facility] Protein [Mass/Vol] 6.3 g/dL Low 6.4 - 8.3 g/dL [facility] Albumin [Mass/Vol] 3.5 g/dL Normal 3.5-5.0 [facility] Comment on above: Performed By: #### H EMO #### [facility] (DEFAULT) [address] [place] [address] 64789 ALP [Catalytic activity/Vol] 117 U/L Normal 32-126 [facility] Comment on above: Performed By: #### [facility] #### [facility] (DEFAULT) [address] [place] [address] 61872 ALT [Catalytic activity/Vol] 10 U/L Normal 9-48 [facility] Comment on above: Performed By: #### H EMOGC #### [facility] (DEFAULT) [address] [place] [address] 19102 AST [Catalytic activity/Vol] 17 U/L Normal 10-39 [facility] Comment on above: Performed By: #### H EMOGC #### [facility] (DEFAULT) [address] [place] [address] 19764 Bilirubin [Mass/Vol] 0.6 mg/dL Normal <1.5 [facility] Comment on above: Performed By: #### H EMOGC #### [facility] (DEFAULT) [address] [place] [address] 68193 Bilirubin.indirect [Mass/Vol] 0.1 mg/dL Normal <0.3 [facility] Comment on above: Performed By: #### H EMOGC #### [facility] (DEFAULT) [address] [place] [address] 53189 Protein [Mass/Vol] 6.3 g/dL Low 6.4-8.3 [facility] Comment on above: Performed By: #### H EMOGC #### [facility] (DEFAULT) [address] [place] [address] 72292 HIGH SENSITIVITY TROPONIN I - SINGLE ORDERon 08-02-2024 Interpretation and review of laboratory results Normal [facility] Troponin I.cardiac High sensitivity method [Mass/Vol] 9 ng/L NINF - 34 ng/L [facility] hs-Troponin I 9 ng/L Normal <34 [facility] Comment on above: Order Comment: 2 [...] bottle. Performed By: #### B LDCULT #### [facility] ([facility]) [address] [address] Hematocrit Auto (Bld) [Volum e fraction]Ordered By: Pieterdanielle Morgan on 08-02-2024 Hematocrit (Bld) [Volume fraction] 42.0 % 37-47 [facility] Hemoglobin measurementOrdere d By: Pieterdanielle Morgan on 08-02-2024 Hemoglobin (Bld) [Mass/Vol] 13.8 g/dL 12.0-15.0 [facility] Immature granulocytes/100 WB C Auto (Bld)Ordered By: [place] Cathy on 08-02-2024 Immature granulocytes/100 WBC (Bld) 0.300 % 0.0-0.9 [facility] Comment on above: IG% - Immature Granu locytes (promyelocytes, myelocytes and metamyelocytes) > 1% indicates that a LEFT SHIFT is Present. Influenza virus A and B and SARS-CoV-2 (COVID-19) and Respiratory syncytial virus RNAOrdered By: [place] Cathy on 08-02-2024 SARS-CoV-2 (COVID-19) RNA CHUCKY+probe Ql (Unsp spec) [facility] International normalized rat io (INR) calculationOrdered By: [facility]-2024 INR Coag (Bld) [Relative time] 1.1 {INR} [facility] L499.0042on 08-02-2024 Trop T High Sen Normal <=14 [facility] Comment on above: Result Comment: Canc elled via OM: Order cancelled - Patient discharged Performed By: #### L 499.0042 #### [facility] [address] [place], [address] L499.0043on 08-02-2024 Trop T High Sen Normal <=14 [facility] Comment on above: Result Comment: Canc elled via OM: Order cancelled - Patient discharged Performed By: #### L 499.0043 #### [facility] [address] [place], [address] L501.4021on 08-02-2024 Trop T High Sen 38 ng/L High <=14 [facility] Comment on above: Performed By: #### L 300.4310, L501.4021, L300.3900, L500.2500, L100.0100 ####[facility] [address] [place], [address] LIPID PANEL WITH REFLEX TO M EASURED LDLon 08-02-2024 Cholesterol [Mass/Vol] 141 mg/dL NINF - 200 mg/dL [facility] Cholesterol in HDL [Mass/Vol] 38 mg/dL Low 40 - PINF mg/dL [facility] Cholesterol in LDL [Mass/Vol] 84 mg/dL 0 - 99 mg/dL [facility] Cholesterol non HDL [Mass/Vol] 103 mg/dL NINF - 130 mg/dL [facility] Cholesterol.total/Alta sterol in HDL [Mass ratio] 3.7 {ratio} NINF - 4.5 [facility] Triglyceride [Mass/Vol] 96 mg/dL NINF - 150 mg/dL [facility] Calculated LDL Cholesterol 84 mg/dL Normal 0-99 [facility] Comment on above: Result Comment: [<10 0 mg/dL: Optimal] [100-129 mg/dL: Near Optimal] [130-159 mg/dL: Borderline High] [160-189 mg/dL: High] [>189 mg/dL: Very High] Performed By: #### [facility] #### [facility] (DEFAULT) [address] [place] [address] 50813 Cholesterol [Mass/Vol] 141 mg/dL Normal <200 [facility] Comment on above: Result Comment: [<20 0 mg/dL: Desirable] [200-239 mg/dL: Borderline High] [>239 mg/dL: High] Performed By: #### [facility] #### [facility] (DEFAULT) [address] [place] [address] Cholesterol in HDL [Mass/Vol] 38 mg/dL Low >=40 [facility] Comment on above: Result Comment: [<40 mg/dL: Low (High Risk)] [>59 mg/dL: High (Low Risk)] Performed By: #### H EMO #### [facility] (DEFAULT) [address] [place] [address] 80785 Non HDL Cholesterol 103 mg/dL Normal <130 [facility] Comment on above: Performed By: #### H EMO #### [facility] (DEFAULT) [address] [place] [address] 87310 Total Cholesterol/HDL Ratio 3.7 Normal <4.5 [facility] Comment on above: Performed By: #### [facility] #### [facility] (DEFAULT) [address] [place] [address] 74643 Triglyceride [Mass/Vol] 96 mg/dL Normal <150 [facility] Comment on above: Result Comment: [<15 0 mg/dL: Desirable] [150-199 mg/dL: Borderline] [200-499 mg/dL: High] [>500 mg/dL: Very High] Performed By: #### [facility] #### [facility] (DEFAULT) [address] [place] [address] 87015 Lymphocytes Auto (Unsp spec) [#/Vol]Ordered By: Pieter Morgan on 08-02-2024 Lymphocytes (Bld) [#/Vol] 1.56 10*3/uL 0.83-4.51 [facility] Lymphocytes/100 WBC Auto (Un sp spec)Ordered By: Pieter Morgan on 08-02-2024 Lymphocytes/100 WBC (Bld) 17.9 % Low 19-41 [facility] M100.678on 08-02-2024 M100.678 Pending SARS-CoV-2 (COVID 19) Negative INFLUENZA A Negative INFLUENZA B Negative RSV PCR Negative Normal [facility] Comment on above: Performed By: #### M 100.678 ####[facility] [address] [place], [address] MAGNESIUMon 08-02-2024 Magnesium [Mass/Vol] 1.2 mg/dL Low 1.6 - 2 .6 mg/dL [facility] Magnesium [Mass/Vol] 1.2 mg/dL Low 1.6-2.6 [facility] Comment on above: Performed By: #### [facility] #### [facility] (DEFAULT) [address] [place] [address] MCV (mean corpuscular volume ) determinationOrdered By: Pieter Morgan on 08-02-2024 MCV (RBC) [Entitic vol] 92.1 fL 81-99 [facility] Mean corpuscular hemoglobin (MCH) determinationOrdered By: Pieter Morgan on 08-02-2024 MCH (RBC) [Entitic mass] 30.3 pg 27.0-32.0 [facility] Mean corpuscular hemoglobin concentration (MCHC) determinationOrdered By: Pieter Morgan on 08-02-2024 MCHC (RBC) [Mass/Vol] 32.9 g/dL 32-36 [facility] Mean platelet volume determi nationOrdered By: Pieter Morgan on 08-02-2024 Platelet mean volume (Bld) [Entitic vol] 10.7 fL 6.2-12.0 [facility] Monocyte percentageOrdered B y: Pieter Morgan on 08-02-2024 Monocytes/100 WBC (Bld) 8.9 % 0-10 [facility] NT-PRO B-TYPE NATRIURETIC PE PTIDEon 08-02-2024 Natriuretic peptide B (Bld) [Mass/Vol] 1115 pg/mL High <=540 [facility] Comment on above: Performed By: #### [facility] #### [facility] (DEFAULT) [address] [place] [address] Neutrophil percentageOrdered By: Pieter Morgan on 08-02-2024 Neutrophils/100 WBC (Bld) 71.4 % High 47-70 [facility] No Panel Informationon 08-02 Radiology Study observation (narrative) [facility] Interpretation and review of laboratory results Abnormal [facility] No Panel InformationOrdered By: Pieter Morgan on 08-02-2024 Troponin T High Sensitivity 38 ng/L High <14 [facility] Nucleated red blood cell per centageOrdered By: Pieter Morgan on 08-02-2024 Nucleated RBC/100 WBC (Bld) [Ratio] 0 % 0-5 [facility] PT,INR,PTTon 08-02-2024 aPTT Coag (PPP) [Time] 26.9 s [facility] INR Coag (Bld) [Relative time] 1.1 {INR} 0.9 - 1.1 [facility] Interpretation and review of laboratory results Normal [facility] PT Coag (PPP) [Time] 13.9 s [facility] aPTT Coag (Bld) [Time] 26.9 s Normal 24.0-34.3 [facility] Comment on above: Performed By: #### P TPTT ####[facility] (DEFAULT)[address] [place] [address] INR Coag (PPP) [Relative time] 1.1 {INR} Normal 0.9-1.1 [facility] Comment on above: Performed By: #### P TPTT ####[facility] (DEFAULT)[address] [place] [address] PT Coag (PPP) [Time] 13.9 s Normal 11.9-14.2 [facility] Comment on above: Performed By: #### P TPTT ####[facility] (DEFAULT)[address] [place] [address] Partial Thromboplast Timeon 08-02-2024 aPTT Coag (Bld) [Time] 28.4 s Normal 24.1-36.2 [facility] Comment on above: Performed By: #### L 300.4310, L501.4021, L300.3900, L500.2500, L100.0100 #### [facility] [address] [place], [place], [id number] Platelet countOrdered By: Racheal Morgan on 08-02-2024 Platelets (Bld) [#/Vol] 214 10*3/uL 150-450 [facility] Potassium (Unsp spec) [Mass/ Vol]Ordered By: Pieter Morgan on 08-02-2024 Potassium [Moles/Vol] 4.2 mmol/L 3.3-5.1 [facility] Potassium measurement (mass/ volume)Ordered By: Pieter Morgan on 08-02-2024 Potassium (Unsp spec) [Mass/Vol] 4.2 mmol/L 3.3-5.1 [facility] Prothrombin Time w/INRon INR Coag (PPP) [Relative time] 1.1 {INR} Normal [facility] Comment on above: Performed By: #### L 300.4310, L501.4021, L300.3900, L500.2500, L100.0100 #### [facility] [address] [place], [address] PT Coag (PPP) [Time] 14.1 s Normal 11.7-14.9 [facility] Comment on above: Performed By: #### L 300.4310, L501.4021, L300.3900, L500.2500, L100.0100 #### [facility] [address] [place], [address] Prothrombin timeOrdered By: Pieter Morgan on 08-02-2024 PT Coag (PPP) [Time] 14.1 s 11.7-14.9 [facility] RBC Auto (Bld) [#/Vol]Ordere d By: Pieter Morgan on 08-02-2024 RBC (Bld) [#/Vol] 4.56 10*6/uL 4.2-5.4 [facility] SCREEN: MRSA/MSSAon 08-03-19 25 Methicillin Resistant S. Aureus By Pcr Negative Normal Negative [facility] Comment on above: Order Comment: Colle [...] by the Clinical Microbiology Laboratory at [facility]. It has not been cleared or approved by the FDA.The laboratory is regulated under CLIA as qualified to perform high-complexity testing. This test is used for clinical purposes. It should not be regarded as investigational or for research. Performed By: #### T YPEC #### [facility] (DEFAULT) [address] [address] Staphylococcus Aureus By Pcr Negative Normal Negative [facility] Comment on above: Order Comment: Colle [...] by the Clinical Microbiology Laboratory at [facility]. It has not been cleared or approved by the FDA.The laboratory is regulated under CLIA as qualified to perform high-complexity testing. This test is used for clinical purposes. It should not be regarded as investigational or for research. Performed By: #### T YPEC #### [facility] (DEFAULT) [address] [address] STROKE Brain/Head without Co nton 08-02-2024 STROKE Brain/Head without Cont [facility] Imaging Services [address] [place] [address] [id number] STROKE Brain/Head without Cont MR#: [id number] Acct: [id number] Name: LINDSAY ACUNA Rep #: [id number] : 1945 F 78 From: Kameron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 ####[facility]CL[facility] [id number] [place] [address] [place] Cholesterol.total/Alta sterol in HDL [Mass ratio] 4.39 {ratio} Normal <5.10 [facility] Comment on above: Order Comment: Speci men Type: BLOOD SPECIMENOrdering Facility: [facility] Address: [address] [place] [address] Performed By: #### 2 4331-1, 29802-2, 3015-3 ####[facility] LABIA [id number] [place] [address] [place] FASTING TIME 12 hrs Normal [facility] Comment on above: Order Comment: Speci men Type: BLOOD SPECIMENOrdering Facility: [facility] Address: [address] [place] [address] Performed By: #### 2 4331-1, 20800-0, 3015-3 ####[facility]CLIA [id number] [place] [address] [place] Triglyceride [Mass/Vol] 129 mg/dL Normal <150 [facility] Comment on above: Order Comment: Speci men Type: BLOOD SPECIMENOrdering Facility: [facility] Address: [address] [place] [address] Result Comment: <150 mg/dL, Normal 150-199 mg/dL, Borderline high 200-499 mg/dL, High >499 mg/dL, Very high Performed By: #### 2 4331-1, 73905-1, 3015-3 ####[facility]CL[facility] [id number] [place] [id number] [place] TSH SerPl-aCncon 05-23-2024 TSH Qn 0.183 m[IU]/L Low 0.270-4.200 [facility] Comment on above: Order Comment: Speci men Type: BLOOD SPECIMENOrdering Facility: [facility] Address: [address] [place] [address] Performed By: #### 2 4331-1, 94696-5, 3015-3 ####[facility] [id number] [place] [id number] [place] CNOVon 11-28-2023 CNOV Office Visit (FAMPWS ) LINDSAY ACUNA ([id number]) 1945 F Date Time Provider Department 11/28/23 9:40 AM KAMERON CARUSO FAMPWS During your visit today, we recorded the following information about you: Pulse Respiration Blood pressure Weight 68/minute 18/minute 142/78 80.6 kg Kameron Caruso MD 11/28/2023 11:45 AM Signed Chief Complaint Patient presents with: F/U 6 Month HPI Lindsay Armand is a 78 year old female who presents here today for 6 month follow up. Pt here today for her routine follow up. Is planning on going to [facility] in June. No bowel, gi, or urinary concerns. Does have some urinary leakage. Hx of tubulovillous adenoma; due for colonoscopy; will contact GI in [place]: Does not watch diet or exercise. [...] mouth daily before breakfast. blood sugar diagnostic (Clean EnginesUCH ULTRA TEST) test strip Test Blood Sugar [...] Smoking stat (more content not included)... Normal [facility] Comprehensive metabolic 2000 panelon 11-27-2023 Albumin [Mass/Vol] 4.1 g/dL Normal 3.9-4.9 [facility] Comment on above: Order Comment: Speci men Type: BLOOD SPECIMENOrdering Facility: [facility] Address: [address] [place] [address] Performed By: #### 3 016-3, 75215-6, 05337-3 ####[facility] [id number] [place] [address] [place] ALP [Catalytic activity/Vol] 86 U/L Normal 34-123 [facility] Comment on above: Order Comment: Speci men Type: BLOOD SPECIMENOrdering Facility: [facility] Address: [address] [place] [address] Performed By: #### 3 016-3, 82176-9, 22718-5 ####[facility] [id number] [place] [address] [place] ALT [Catalytic activity/Vol] 13 U/L Normal 7-38 [facility] Comment on above: Order Comment: Speci men Type: BLOOD SPECIMENOrdering Facility: [facility] Address: [address] [place] [address] Performed By: #### 3 016-3, 08724-7, 86386-7 ####[facility] LABCL[facility] [id number] [place] [address] [place] Anion gap [Moles/Vol] 10 mmol/L Normal 8-[address] [facility] Comment on above: Order Comment: Speci men Type: BLOOD SPECIMENOrdering Facility: [facility] Address: [address] [place] [address] Performed By: #### 3 016-3, 38083-8, 42193-0 ####[facility]CL[facility] [id number] [place] [address] [place] AST [Catalytic activity/Vol] 21 U/L Normal 13-35 [facility] Comment on above: Order Comment: Speci men Type: BLOOD SPECIMENOrdering Facility: [facility] Address: [address] [place] [address] Performed By: #### 3 016-3, 50235-4, 77345-3 ####[facility] [id number] [place] [address] [place] Bilirubin [Mass/Vol] 0.5 mg/dL Normal 0.2-1.3 [facility] Comment on above: Order Comment: Speci men Type: BLOOD SPECIMENOrdering Facility: [facility] Address: [address] [place] [address] Performed By: #### 3 016-3, 35466-8, 53478-5 ####[facility] LABCL[facility] [id number] [place] [address] [place] Calcium [Mass/Vol] 9.7 mg/dL Normal 8.5-10.2 [facility] Comment on above: Order Comment: Speci men Type: BLOOD SPECIMENOrdering Facility: [facility] Address: [address] [place] [address] Performed By: #### 3 016-3, 74963-7, 81830-9 ####[facility]CL[facility] [id number] [place] [address] [place] Chloride [Moles/Vol] 108 mmol/L High 98-107 [facility] Comment on above: Order Comment: Speci men Type: BLOOD SPECIMENOrdering Facility: [facility] Address: [address] [place] [address] Performed By: #### 3 016-3, 56368-6, 05449-4 ####[facility] [id number] [place] [address] [place] CO2 [Moles/Vol] 23 mmol/L Normal 22-30 [facility] Comment on above: Order Comment: Speci men Type: BLOOD SPECIMENOrdering Facility: [facility] Address: [address] [place] [address] Performed By: #### 3 016-3, 16674-2, 33783-3 ####[facility] [id number] [place] [address] [place] Creatinine [Mass/Vol] 1.37 mg/dL High 0.58-0.[address] [facility] Comment on above: Order Comment: Speci men Type: BLOOD SPECIMENOrdering Facility: [facility] Address: [address] [place] [address] Performed By: #### 3 016-3, 30179-6, 58798-0 ####[facility] [id number] [place] [address] [place] Creatinine and Glomerular filtration rate.predicted panel (S/P/Bld) 39 mL/min/1.73m??? Low >=60 [facility] Comment on above: Order Comment: Speci men Type: BLOOD SPECIMENOrdering Facility: [facility] Address: [address] [place] [address] Result Comment: Nancy mated Glomerular Filtration Rate [...] actual GFR. Performed By: #### 3 016-3, 62760-3, 90106-1 ####[facility]CL[facility] [id number] [address] [address] [place] Glucose [Mass/Vol] 77 mg/dL Normal 74-99 [facility] Comment on above: Order Comment: Speci men Type: BLOOD SPECIMENOrdering Facility: [facility] Address: [address] [place] [address] Result Comment: The [place] Diabetes Association (ADA) provides guidance for cutoff [...] Standards of Medical Care in Diabetes 2016, [place] Diabetes Association. Diabetes Care. 2016.39(Suppl 1). Performed By: #### 3 016-3, , ####[facility]CL[facility] [id number] [address] [address] [place] Potassium [Moles/Vol] 4.4 mmol/L Normal 3.7-5.[address] [facility] Comment on above: Order Comment: Nici suad Type: BLOOD SPECIMENOrdering Facility: [facility] Address: [address] [place] [address] Performed By: #### 3 016-3, 60316-8, 34998-8 ####[facility] [id number] [place] [address] [place] Protein [Mass/Vol] 6.6 g/dL Normal 6.3-8.0 [facility] Comment on above: Order Comment: Speci men Type: BLOOD SPECIMENOrdering Facility: [facility] Address: [address] [place] [address] Performed By: #### 3 016-3, 64299-8, 60999-0 ####[facility]CL[facility] [id number] [place] [address] [place] Sodium [Moles/Vol] 141 mmol/L Normal 136-144 [facility] Comment on above: Order Comment: Speci men Type: BLOOD SPECIMENOrdering Facility: [facility] Address: [address] [place] [address] Performed By: #### 3 016-3, 69120-3, 25498-9 ####[facility] [id number] [place] [address] [place] Urea nitrogen [Mass/Vol] 21 mg/dL Normal 7-21 [facility] Comment on above: Order Comment: Speci men Type: BLOOD SPECIMENOrdering Facility: [facility] Address: [address] [place] [address] Performed By: #### 3 016-3, 48328-7, 56009-1 ####[facility] [id number] [place] [address] [place] HbA1c (Bld)on 11-27-2023 Average glucose Estimated from glycated hemoglobin (Bld) [Mass/Vol] 166 mg/dL Normal [facility] Comment on above: Order Comment: Speci men Type: BLOOD SPECIMENOrdering Facility: [facility] Address: [address] [place] [address] Result Comment: eAG: (Estimated average glucose) is a calculated value from HgbA1c and is ocean import representative of the average blood glucose level in the last 2-3 month period. Performed By: #### 5 5454-3 ####[facility] [id number] [place] [address] [place] HbA1c (Bld) [Mass fraction] 7.4 % High 4.3-5.6 [facility] Comment on above: Order Comment: Deana men Type: BLOOD SPECIMENOrdering Facility: [facility] Address: [address] [place] [address] Result Comment: Amer [place] Diabetes Association guidelines indicate that patients with HgbA1c in the range 5.7-6.4% are at increased risk for development of diabetes, and intervention by lifestyle modification may be beneficial. HgbA1c greater or equal to 6.5% is considered diagnostic of diabetes. Performed By: #### 5 5454-3 ####[facility]CL[facility] [id number] [place] [address] [place] Lipid 1996 panelon 4 Cholesterol [Mass/Vol] 156 mg/dL Normal <200 [facility] Comment on above: Order Comment: Nici men Type: BLOOD SPECIMENOrdering Facility: [facility] Address: [address] [place] [address] Result Comment: <200 mg/dL, Desirable 200-239 mg/dL, Borderline high >239 mg/dL, High Performed By: #### 3 016-3, 94049-5, 29017-7 ####[facility]CL[facility] [id number] [address] [place] Cholesterol in HDL [Mass/Vol] 41 mg/dL Normal >39 [facility] Comment on above: Order Comment: Nici men Type: BLOOD SPECIMENOrdering Facility: [facility] Address: [address] [place] [address] Result Comment: 40-5 9 mg/dL, Acceptable >59 mg/dL, High: Negative risk factor for coronary heart disease <40 mg/dL, Low: Positive risk factor for coronary heart disease Performed By: #### 3 016-3, 98108-1, 76088-4 ####[facility]CL[facility] [id number] [place] [address] [place] Cholesterol in LDL [Mass/Vol] 85 mg/dL Normal <100 [facility] Comment on above: Order Comment: Speci men Type: BLOOD SPECIMENOrdering Facility: [facility] Address: [address] [place] [address] Result Comment: <100 mg/dL, Optimal 100-129 mg/dL, Near optimal/above optimal 130-159 mg/dL, Borderline high 160-189 mg/dL, High >189 mg/dL, Very high Secondary prevention optimal LDL Cholesterol levels are recommended to be < 70 mg/dL Performed By: #### 3 016-3, 41528-8, 98624-5 ####[facility]CL[facility] [id number] [address] [place] Cholesterol in LDL/Cholesterol in HDL [Mass ratio] 2.07 {ratio} Normal <2.54 [facility] Comment on above: Order Comment: Speci men Type: BLOOD SPECIMENOrdering Facility: [facility] Address: [address] [place] [address] Result Comment: Refmelanie daniel: 1. National Cholesterol Education Program ATP III Guideline At-A-Glance Quick Desk Reference: National Heart, Lung, and Blood Schroeder. National Institutes of Health. 2001: NIH Publication No. 01-3305. 2. An International Atherosclerosis Society position paper: global recommendations for the management of dyslipidemia: executive summary, Atherosclerosis. 2014: 232(2):410-413. Performed By: #### 3 016-3, 51514-3, 23081-4 ####[facility]CL[facility] [id number] [place] [address] [place] Cholesterol in VLDL [Mass/Vol] 30 mg/dL High <30 [facility] Comment on above: Order Comment: Nici men Type: BLOOD SPECIMENOrdering Facility: [facility] Address: [address] [place] [address] Performed By: #### 3 016-3, 63921-7, 28362-9 ####[facility]CL[facility] [id number] [place] [address] [place] Cholesterol non HDL [Mass/Vol] 115 mg/dL Normal <130 [facility] Comment on above: Order Comment: Speci men Type: BLOOD SPECIMENOrdering Facility: [facility] Address: [address] [place] [address] Result Comment: <130 mg/dL, Optimal 130-159 mg/dL, Near optimal/above optimal 160-189 mg/dL, Borderline high 190-219 mg/dL, High >219 mg/dL, Very high Secondary prevention optimal non HDL Cholesterol levels are recommended to be <100 mg/dL Performed By: #### 3 016-3, 88482-0, 71259-3 ####[facility]CL[facility] [id number] [place] [address] [place] Cholesterol.total/Alta sterol in HDL [Mass ratio] 3.80 {ratio} Normal <5.10 [facility] Comment on above: Order Comment: Speci men Type: BLOOD SPECIMENOrdering Facility: [facility] Address: [address] [place] [address] Performed By: #### 3 016-3, 78445-4, 20541-2 ####[facility]CL[facility] [id number] [place] [address] [place] FASTING TIME 12 hrs Normal [facility] Comment on above: Order Comment: Speci men Type: BLOOD SPECIMENOrdering Facility: [facility] Address: [address] [place] [address] Performed By: #### 3 016-3, 98228-0, 53098-4 ####[facility]CL[facility] [id number] [place] [address] [place] Triglyceride [Mass/Vol] 148 mg/dL Normal <150 [facility] Comment on above: Order Comment: Speci men Type: BLOOD SPECIMENOrdering Facility: [facility] Address: [address] [place] [address] Result Comment: <150 mg/dL, Normal 150-199 mg/dL, Borderline high 200-499 mg/dL, High >499 mg/dL, Very high Performed By: #### 3 016-3, 08174-5, 28544-2 ####[facility]CL[facility] [id number] [address] [place] TSH SerPl-aCncon 11-27-2023 TSH Qn 1.870 m[IU]/L Normal 0.270-4.200 [facility] Comment on above: Order Comment: Speci men Type: BLOOD SPECIMENOrdering Facility: [facility] Address: [address] [place] [address] Performed By: #### 3 016-3, 58805-7, 97263-2 ####[facility]CL[facility] [id number] [address] OF [facility] CNOVon 10-10-2023 [facility] ARMANDLINDSAY Veronica ([id number]) 1945 F Date Time Provider Department 10/10/23 7:30 AM DAVID DUPREE [facility] During your visit today, we recorded the following information about you: Temperature Pulse Respiration Blood pressure 97.5 degrees 58/minute 18/minute 128/82 Weight 82.1 kg David Dupree APRN.ORGANIC SECTION TECHNICAL LEAD 10/10/2023 8:11 AM Signed Subjective HPI Nontoxic-appearing [...] mouth daily before breakfast. blood sugar diagnostic (Clean EnginesUCH ULTRA TEST) test strip Test Blood Sugar [...] 1 tablet by mouth once daily. lancets (TASCETTOUCH DELICA PLUS LANCET) 30 gauge Test blood [...] Rate and (more content not included)... Normal [facility] CNOVon 09-29-2023 CNOV Office Visit ([facility] ) LINDSAY ACUNA ([id number]) 1945 F Date Time Provider Department 09/29/23 2:15 PM RADHA LEVINE [facility] During your visit today, we recorded the following information about you: Temperature Pulse Respiration Blood pressure 97.8 degrees 54/minute 18/minute 148/91 Weight 84 kg Radha Levine APRN.ORGANIC SECTION TECHNICAL LEAD 09/29/2023 6:12 PM Signed This note was created using NoteWriter. Subjective Lindsay Acuna is a 77 year old female. 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 Denies fever or chills Denies malaise or fatigue Denies new lotions, soaps, or medicines States that she was working out in the garden the same day the rash erupted. The history is provided by the patient. No staff interpreter was used. Rash This is a [...] 1 tablet by mouth once daily. lancets (TASCETTOUCH DELICA PLUS LANCET) 30 gauge Test blood [...] state. Hematologi (more content not included)... Normal [facility] Glucose,Bedsideon 04-16-2019 Glucose [Mass/Vol] 161 mg/dL High 70-100 [facility] Comment on above: Result Comment: Test performed by glucose meter. Results may be 10%-15% lower than serum/plasma values. (CLIA ID [id number]) Performed By: #### B GLU #### [facility] [address] [address] Surgical Pathologyon 019 Surgical Pathology [id number] [facility] PATHOLOGY AND LABORATORY MEDICINE [address] [place] [address] FINAL SURGICAL PATHOLOGY REPORT ___ NAME: LINDSAY ACUNA : 1945 73 Y F BILLING NO.: [id number] LOCATION: EO PROCEDURE 01/09/2019 DATE: SURGEON: SANTIAGO JOSE M.D. [...] characteristics determined by the clinical laboratories of [facility]. They have not been cleared by [...] negativity on decalcified specimens. Professional Performing Location: [place] [address]. DEPARTMENT OF PATHOLOGY AND LABORATORY MEDICINE [place], [place] [address] Normal [facility] .Auto Diffon 08-22-2018 Ammonia mass conc (P) 1.10 10 3/mcL High 0.15-1.00 [facility] ([place]) Comment on above: Performed By: #### B MP, GFR #### [address] [address] Basophils #/vol (Bld) 0.00 10 3/mcL Normal 0.00-0.19 [facility] ([place]) Comment on above: Performed By: #### B MP, GFR #### [address] [address] Basophils/100 WBC (Bld) 0.3 % Normal 0.0-2.5 A [facility] ([place]) Comment on above: Performed By: #### B MP, GFR #### [address] [address] Eosinophils #/vol (Bld) 0.00 10 3/mcL Normal 0.00-0.40 [facility] ([place]) Comment on above: Performed By: #### B MP, GFR #### [address] [address] Eosinophils/100 WBC (Bld) 0.2 % Normal 0.0-7.0 [facility] ([place]) Comment on above: Performed By: #### B MP, GFR #### [address] [address] Lymphocytes #/vol (Bld) 2.20 10 3/mcL Normal 0.77-3.85 [facility] ([place]) Comment on above: Performed By: #### B MP, GFR #### [address] [address] Lymphocytes/100 WBC (Bld) 20.5 % Normal 10.0-50.0 [facility] ([place]) Comment on above: Performed By: #### B MP, GFR #### [address] [address] Monocytes/100 WBC (Bld) 10.5 % Normal 1.7-13.0 A [facility] ([place]) Comment on above: Performed By: #### B MP, GFR #### [address] [address] Neutrophils/100 WBC (Bld) 68.5 % Normal 37.0-80.0 [facility] ([place]) Comment on above: Performed By: #### B MP, GFR #### [address] [address] .GFRon 08-22-2018 GFR Non- 33 ml/min/1.73sqm Normal [facility] ([place] Comment on above: Result Comment: GFR Population [...] Performed By: #### B MP, GFR #### [address] [address] #### JOHN, DOYR, ANEU #### [place] [address] [address] GFR 40 ml/min/1.73sqm Normal [facility] ([place]) Comment on above: Result Comment: GFR Population [...] Performed By: #### B MP, GFR #### [place] [address] #### CBC, ADIFF, ANEU #### [address] [address] .NEUABSon 08-22-2018 Neutrophils #/vol (Bld) 7.40 10 3/mcL High 2.85-6.16 [facility] ([place]) Comment on above: Performed By: #### B MP, GFR #### [place] [address] BMPon 08-22-2018 Calcium mass conc 8.3 mg/dL Low 8.4-10.2 [facility] ([place]) Comment on above: Performed By: #### B MP, GFR #### [place] [address] #### CBC, ADIFF, ANEU #### [address] [address] Chloride molar conc 104 mmol/L Normal 98-107 [facility] ([place]) Comment on above: Performed By: #### Roby MP, GFR #### [place] [address] #### CBC, ADIFF, ANEU #### [address] [address] CO2 molar conc 25 mmol/L Normal 23-31 [facility] ([place]) Comment on above: Performed By: #### Roby MP, GFR #### [place] [address] #### CBC, ADIFF, ANEU #### [address] [address] Creatinine mass conc 1.53 mg/dL High 0.55-1.02 [facility] ([place]) Comment on above: Performed By: #### B MP, GFR #### [place] [address] #### CBC, ADIFF, ANEU #### [address] [address] Electrolyte Balance 10.0 mEq/L Normal [facility] ([place]) Comment on above: Performed By: #### B MP, GFR #### [address] [address] #### CBC, ADIFF, ANEU #### [address] [address] Glucose mass conc 149 mg/dL High 83-110 [facility] ([place]) Comment on above: Performed By: #### B MP, GFR #### [address] [address] #### CBC, ADIFF, ANEU #### [address] [address] Potassium molar conc 4.3 mmol/L Normal 3.5-5.1 [facility] ([place]) Comment on above: Performed By: #### B MP, GFR #### [place] [address] #### CBC, ADIFF, ANEU #### [address] [address] Sodium molar conc 139 mmol/L Normal 136-145 [facility] ([place] Comment on above: Performed By: #### B MP, GFR #### [address] [address] #### CBC, ADIFF, ANEU #### [address] [address] Urea nitrogen mass conc 32 mg/dL High 7-18 A [facility] ([place]) Comment on above: Performed By: #### B MP, GFR #### [address] [address] #### CBC, ADIFF, ANEU #### [address] [address] Urea nitrogen/Creatinine mass ratio 21 ratio Normal 7-27 [facility] ([place]) Comment on above: Performed By: #### B MP, GFR #### [place] [id number] #### CBC, ADIFF, ANEU #### [facility] [place] [address] [place], [place] [address] CBCon 08-22-2018 Erythrocyte distribution width Ratio (RBC) 12.6 % Normal 11.5-14.5 [facility] ([place]) Comment on above: Performed By: #### B MP, GFR #### [address] [address] Hematocrit Volume Fraction (Bld) 27.5 % Low 37.0-47.0 [facility] ([place] Comment on above: Performed By: #### B MP, GFR #### [address] [address] Hemoglobin mass conc (Bld) 9.2 G/dL Low 12.0-16.0 [facility] ([place] Comment on above: Performed By: #### B MP, GFR #### [place] [address] MCH Entitic mass (RBC) 30.1 pg Normal 27.0-31.2 [facility] ([place]) Comment on above: Performed By: #### B MP, GFR #### [address] [address] MCHC mass conc (RBC) 33.5 G/dL Normal 33.0-37.0 [facility] ([place]) Comment on above: Performed By: #### B MP, GFR #### [address] [address] MCV Entitic volume (RBC) 89.8 fL Normal 80.0-94.0 [facility] ([place] Comment on above: Performed By: #### B MP, GFR #### [address] [address] Platelet mean volume Entitic volume (Bld) 9.3 fL Normal 7.4-10.4 [facility] ([place] Comment on above: Performed By: #### B MP, GFR #### [address] [address] Platelets #/vol (Bld) 224 10 3/mcL Normal 130-400 A [facility] ([place]) Comment on above: Performed By: #### B MP, GFR #### [facility] [address] [place] [address] RBC #/vol (Bld) 3.06 10 6/mcL Low 4.20-5.40 [facility] ([place]) Comment on above: Performed By: #### B MP, GFR #### [facility] [address] [place] [address] WBC #/vol (Bld) 10.80 10 3/mcL Normal 4.60-10.80 [facility] ([place]) Comment on above: Performed By: #### B MP, GFR #### [facility] [address] [place] [address] XR KNEE 1 OR 2 VIEWS RIGHTon [...] AM Sign Date: 08/21/2018 9:55:37 AM Normal [facility] ([place] CT KNEE W/O CONTRAST RIGHTon 08-09-2018 CT [...] PM Sign Date: 08/09/2018 5:04:12 PM Normal [facility] ([place]) .Auto Diffon 08-06-2018 Ammonia mass conc (P) 0.80 10 3/mcL Normal 0.15-1.00 [facility] ([place] Comment on above: Performed By: #### C BCKEITHIFF, ANEU #### [address] [address] #### A1C #### [address] [address] Basophils #/vol (Bld) 0.10 10 3/mcL Normal 0.00-0.19 [facility] ([place]) Comment on above: Performed By: #### C BCKEITHIFF, ANEU #### [place] [address] #### A1C #### [address] [address] Basophils/100 WBC (Bld) 0.6 % Normal 0.0-2.5 A [facility] ([place]) Comment on above: Performed By: #### C BC, ADIFF, ANEU #### [address] [address] #### A1C #### [address] [address] Eosinophils #/vol (Bld) 0.20 10 3/mcL Normal 0.00-0.40 [facility] ([place]) Comment on above: Performed By: #### C BC, ADIFF, ANEU #### [address] [address] #### A1C #### [address] [address] Eosinophils/100 WBC (Bld) 1.7 % Normal 0.0-7.0 [facility] ([place]) Comment on above: Performed By: #### C BC, ADIFF, ANEU #### [address] [address] #### A1C #### [address] [address] Lymphocytes #/vol (Bld) 1.90 10 3/mcL Normal 0.77-3.85 [facility] ([place]) Comment on above: Performed By: #### C BC ADIFF, ANEU #### [address] [address] #### A1C #### [address] [address] Lymphocytes/100 WBC (Bld) 20.8 % Normal 10.0-50.0 Formerly [facility] ([place]) Comment on above: Performed By: #### C BCDORY, ANEU #### [address] [address] #### A1C #### [address] [address] Monocytes/100 WBC (Bld) 9.3 % Normal 1.7-13.0 A [facility] ([place]) Comment on above: Performed By: #### C BCDORY, ANEU #### [address] [address] #### A1C #### [address] [address] Neutrophils/100 WBC (Bld) 67.6 % Normal 37.0-80.0 Formerly [facility] ([place]) Comment on above: Performed By: #### C DORY SMITH, ANEU #### [address] [address] #### A1C #### [address] [address] .GFRon 08-06-2018 GFR 51 ml/min/1.73sqm Normal [facility]ly [facility] ([place]) Comment on above: Result Comment: GFR [...] Performed By: #### B MP, GFR #### [address] [address] GFR Non- 42 ml/min/1.73sqm Normal Formerly [facility] ([place]) Comment on above: Result Comment: GFR Population [...] Performed By: #### B MP, GFR #### [address] [address] .NEUABSon 08-06-2018 Neutrophils #/vol (Bld) 6.20 10 3/mcL High 2.85-6.16 Formerly [facility] ([place]) Comment on above: Performed By: #### DORY SOTO, ANEU #### [address] [address] #### A1C #### [address] [address] A1Con 08-06-2018 Hemoglobin A1c/Hemoglobin.total mass fraction (Bld) 7.9 % High 4.5-6.2 Formerly [facility] ([place]) Comment on above: Performed By: #### DORY SOTO, ANEU #### [address] [place] [address] #### A1C #### [address] [address] BMPon 08-06-2018 Calcium mass conc 9.2 mg/dL Normal 8.4-10.2 [facility]ly [facility] ([place]) Comment on above: Performed By: #### B MP, GFR #### [place] [id number] Chloride molar conc 105 mmol/L Normal 98-107 [facility] ([place]) Comment on above: Performed By: #### B MP, GFR #### [place] [address] CO2 molar conc 27 mmol/L Normal 23-31 [facility]ly [facility] ([place] Comment on above: Performed By: #### B MP, GFR #### [place] [address] Creatinine mass conc 1.25 mg/dL High 0.55-1.02 [facility] ([place]) Comment on above: Performed By: #### B MP, GFR #### [place] [address] Electrolyte Balance 11.0 mEq/L Normal [facility] ([place]) Comment on above: Performed By: #### B MP, GFR #### [place] [address] Glucose mass conc 70 mg/dL Low 83-110 [facility] ([place] Comment on above: Performed By: #### B MP, GFR #### [place] [address] Potassium molar conc 5.0 mmol/L Normal 3.5-5.1 [facility] ([place]) Comment on above: Performed By: #### B MP, GFR #### [place] [id number] Sodium molar conc 143 mmol/L Normal 136-145 [facility] ([place] Comment on above: Performed By: #### B MP, GFR #### [place] [id number] Urea nitrogen mass conc 26 mg/dL High 7-18 A [facility] ([place]) Comment on above: Performed By: #### B MP, GFR #### [address] [address] Urea nitrogen/Creatinine mass ratio 21 ratio Normal 7-27 [facility] ([place]) Comment on above: Performed By: #### B MP, GFR #### [address] [address] CBCon 08-06-2018 Erythrocyte distribution width Ratio (RBC) 12.2 % Normal 11.5-14.5 [facility] ([place]) Comment on above: Performed By: #### C BCKEITHIFF, ANEU #### [address] [address] #### A1C #### [place] [address] Hematocrit Volume Fraction (Bld) 34.6 % Low 37.0-47.0 [facility] ([place]) Comment on above: Performed By: #### C DORY SMITH, ANEU #### [address] [address] #### A1C #### [place] [address] Hemoglobin mass conc (Bld) 11.7 G/dL Low 12.0-16.0 [facility] ([place]) Comment on above: Performed By: #### C KEITH SMITHIFF, ANEU #### [address] [address] #### A1C #### [place] [address] MCH Entitic mass (RBC) 30.6 pg Normal 27.0-31.2 [facility] ([place]) Comment on above: Performed By: #### C BC ADIFF, ANEU #### [address] [address] #### A1C #### [address] [address] MCHC mass conc (RBC) 33.7 G/dL Normal 33.0-37.0 [facility] ([place]) Comment on above: Performed By: #### C BC ADIFF, ANEU #### [address] [address] #### A1C #### [address] [address] MCV Entitic volume (RBC) 90.9 fL Normal 80.0-94.0 [facility] ([place] Comment on above: Performed By: #### C BC, ADIFF, ANEU #### [place] [address] #### A1C #### [address] [address] Platelet mean volume Entitic volume (Bld) 8.8 fL Normal 7.4-10.4 [facility] ([place]) Comment on above: Performed By: #### C BC, ADIFF, ANEU #### [place] [id number] #### A1C #### [address] [address] Platelets #/vol (Bld) 355 10 3/mcL Normal 130-400 A [facility] ([place]) Comment on above: Performed By: #### C BC, ADIFF, ANEU #### [place] [id number] #### A1C #### [address] [address] RBC #/vol (Bld) 3.81 10 6/mcL Low 4.20-5.40 [facility] ([place]) Comment on above: Performed By: #### C BC, ADIFF, ANEU #### [address] [address] #### A1C #### [address] [address] WBC #/vol (Bld) 9.20 10 3/mcL Normal 4.60-10.80 [facility] ([place]) Comment on above: Performed By: #### C BC, ADIFF, ANEU #### [place] [id number] #### A1C #### [place] [address] [place] [address] Vital Signs Date Time Vital Sign Value Performing Clinician Facility 10-02-2024 09:21-0400 Body height 167.[address] Kameron Caruso MD Work Phone: [facility] 10-02-2024 09:21-0400 Diastolic blood pressure 71 mm[Hg] Dr. Kameron Caruso MD Work Phone: [facility] 10-02-2024 09:21-0400 Heart rate 77 /min Dr. Kameron Caruso MD Work Phone: [facility] 10-02-2024 09:21-0400 Respiratory rate 16 /min Dr. Kameron Caruso MD Work Phone: [facility] 10-02-2024 09:21-0400 Systolic blood pressure 111 mm[Hg] Dr. Kameron Caruso MD Work Phone: [facility] 09-09-2024 09:02-0400 Heart rate 100 /min SILVINO SCHEATZLE DO [facility] 09-09-2024 07:58-0400 Blood Pressure Cuff Size SILVINO SCHEATZLE DO [facility] 09-09-2024 07:58-0400 Blood Pressure Location SILVINO SCHEATZLE DO [facility] 09-09-2024 07:58-0400 Blood Pressure Method SILVINO SCHEATZLE DO [facility] 09-09-2024 07:58-0400 Body temperature 96.8 [degF] SILVINO SCHEATZLE DO [facility] 09-09-2024 07:58-0400 Diastolic Blood Pressure Non-Invasive 78 mm[Hg] SILVINO SCHEATZLE DO Tyler Cecil 09-09-2024 07:58-0400 Heart rate 110 /min SILVINO SCHEATZLE DO Tyler Cecil 09-09-2024 07:58-0400 Reason For Taking VItal Signs SILVINO CIDATZLE DO Tyler Garcia 09-09-2024 07:58-0400 Respiratory rate 16 /min SILVINO CIDATZLE DO Tyler Cecil 09-09-2024 07:58-0400 Systolic Blood Pressure Non-Invasive 122 mm[Hg] SILVINO CIDATZLE DO Tyler Garcia 09-09-2024 02:45-0400 Body temperature 97.7 [degF] SILVINO PALAKATZLE DO Tyler Garcia 09-09-2024 02:45-0400 Diastolic Blood Pressure Non-Invasive 60 mm[Hg] SILVINO PALAKATZLE DO Tyler Cecil 09-09-2024 02:45-0400 Heart rate 92 /min SILVINO CIDATZLE DO Tyler Garcia 09-09-2024 02:45-0400 Respiratory rate 16 /min SILVINO CIDATZLE DO Tyler Garcia 09-09-2024 02:45-0400 Systolic Blood Pressure Non-Invasive 108 mm[Hg] SILVINO CIDATZLE DO Tyler Cecil 09-08-2024 22:28-0400 Blood Pressure Cuff Size SILVINO CIDATZLE DO Tyler Cecil 09-08-2024 22:28-0400 Blood Pressure Location SILVINO PALAKATZLE DO Tyler Cecil 09-08-2024 22:28-0400 Blood Pressure Method SILVINO CIDATZLE DO Tyler Cecil 09-08-2024 22:28-0400 Body temperature 97.88 [degF] SILVINO CIDATZLE DO Tyler Warnern 09-08-2024 22:28-0400 Diastolic Blood Pressure Non-Invasive 54 mm[Hg] SILVINO CIDATZLE DO Tyler Tariqwn 09-08-2024 22:28-0400 Heart rate 92 /min SILVINO CIDATZLE DO Tyler Tariqwn 09-08-2024 22:28-0400 Reason For Taking VItal Signs SILVINO CIDATZLE DO Tyler Tariqwn 09-08-2024 22:28-0400 Respiratory rate 16 /min SILVINO CIDATZLE DO Tyler Tariqwn 09-08-2024 22:28-0400 Systolic Blood Pressure Non-Invasive 118 mm[Hg] SILVINO CIDATZLE DO Tyler Cecil 09-08-2024 18:21-0400 Heart rate 90 /min SILVINO CIDATZLE DO Tyler Warnern 09-08-2024 09:08-0400 Blood Pressure Cuff Size SILVINO CIDATZLE DO Tyler Warnern 09-08-2024 09:08-0400 Blood Pressure Location SILVINO CIDATZLE DO Tyler Cecil 09-08-2024 09:08-0400 Blood Pressure Method SILVINO CIDATZLE DO Tyler Cecil 09-08-2024 09:08-0400 Heart rate 114 /min SILVINO CIDATZLE DO Tyler Cecil 09-08-2024 09:08-0400 Reason For Taking VItal Signs SILVINO CIDATZLE DO Tyler Cecil 09-04-2024 10:54-0400 Body temperature 96.62 [degF] SILVINO CIDATZLE DO TylerPaxatalawn 09-03-2024 00:26-0400 Body temperature 97.34 [degF] SILVINO SCHEATZLE DO Tyler Cecil 08-30-2024 22:54-0400 Body temperature 98.06 [degF] SILVINO SCHEATZLE DO Tyler Cecil 08-26-2024 10:36-0400 Body weight 76 kg SILVINO SCHEATZLE DO Tyler Cecil 08-19-2024 06:00-0400 Body weight 75.3 kg SILVINO SCHEATZLE DO Tyler Cecil 08-15-2024 14:27-0400 Body height 170.2 cm SILVINO SCHEATZLE DO Tyler Cecil 08-15-2024 14:27-0400 Body weight 75.4 kg SILVINO SCHEATZLE DO Tyler Cecil 08-15-2024 14:27-0400 Body weight 26.03 kg/m2 SILVINO SCHEATZLE DO Tyler Cecil 08-15-2024 09:02-0400 Diastolic blood pressure 69 mm[Hg] Prema Ramos MD Work Phone: [facility] 08-15-2024 09:02-0400 Systolic blood pressure 128 mm[Hg] Prema Ramos MD Work Phone: [facility] 08-15-2024 07:28-0400 Heart rate 86 /min Prema Ramos MD Work Phone: [facility] 08-15-2024 07:18-0400 Body temperature 97.3 [degF] Prema Ramos MD Work Phone: [facility] 08-15-2024 07:18-0400 Respiratory rate 23 /min Prema Ramos MD Work Phone: 2(917)123-804151 [place] [address] 08-15-2024 07:18-0400 SaO2% (BldA) [Mass fraction] 95 % Prema Ramos MD Work Phone: 0(238)028-623774 [place] [address] 08-05-2024 08:00-0400 Body height 170.2 cm Prema Ramos MD Work Phone: 7(948)951-852774 [place] [address] 08-05-2024 08:00-0400 Body mass index (BMI) [Ratio] 26.94 kg/m2 Prema Ramos MD Work Phone: 3(540)509-071974 [place] [address] 08-05-2024 08:00-0400 Body weight 78.02 kg Prema Ramos MD Work Phone: 7(457)439-603074 [place] [address] 08-02-2024 13:52-0400 Body temperature 98 [degF] Dr. Kameron Caruso MD Work Phone: 4(102)211-114213 [place] [address] 08-02-2024 13:52-0400 Diastolic blood pressure 91 mm[Hg] Dr. Kameron Caruso MD Work Phone: 4(721)310-498713 [place] [address] 08-02-2024 13:52-0400 Heart rate 109 /min Dr. Kameron Caruso MD Work Phone: 0(616)905-911113 [place] [address] 08-02-2024 13:52-0400 Respiratory rate 16 /min Dr. Kameron Caruso MD Work Phone: 7(346)659-914713 [place] [address] 08-02-2024 13:52-0400 SaO2% (BldA) [Mass fraction] 98 % Dr. Kameron Caruso MD Work Phone: 4(980)357-879477 [place] [address] 08-02-2024 13:52-0400 Systolic blood pressure 153 mm[Hg] Dr. Kameron Caruso MD Work Phone: 0(052)468-019713 [place] [address] 08-02-2024 12:46-0400 Body height 167.[address] Kameron Caruso MD Work Phone: 7(695)462-206177 [place] [address] 08-02-2024 12:46-0400 Body mass index (BMI) [Ratio] 26.6 kg/m2 Dr. Kameron Caruso MD Work Phone: [facility] 08-02-2024 12:46-0400 Body weight [address] Kameron Caruso MD Work Phone: [facility] 06-26-2024 09:39-0500 Body mass index (BMI) [Ratio] 27.25 kg/m2 Emma Sotomayor DIRECTOR PRISON.ORGANIC SECTION TECHNICAL LEAD Work Phone: [facility] 06-26-2024 09:39-0500 Body weight 78.93 kg Emma Sotomayor DIRECTOR PRISON.ORGANIC SECTION TECHNICAL LEAD Work Phone: [facility] 06-26-2024 09:39-0500 Diastolic blood pressure 88 mm[Hg] Emma Gonzalesf DIRECTOR PRISON.ORGANIC SECTION TECHNICAL LEAD Work Phone: [facility] 06-26-2024 09:39-0500 Heart rate 93 /min Emma Sotomayor DIRECTOR PRISON.ORGANIC SECTION TECHNICAL LEAD Work Phone: [facility] 06-26-2024 09:39-0500 Respiratory rate 16 /min Emma Sotomayor DIRECTOR PRISON.ORGANIC SECTION TECHNICAL LEAD Work Phone: [facility] 06-26-2024 09:39-0500 SaO2% (BldA) [Mass fraction] 98 % Emma Sotomayor DIRECTOR PRISON.ORGANIC SECTION TECHNICAL LEAD Work Phone: [facility] 06-26-2024 09:39-0500 Systolic blood pressure 144 mm[Hg] Emma Sotomayor DIRECTOR PRISON.ORGANIC SECTION TECHNICAL LEAD Work Phone: [facility] 05-31-2024 08:56-0500 Diastolic blood pressure 84 mm[Hg] Kameron Caruso MD Work Phone: [facility] 05-31-2024 08:56-0500 Systolic blood pressure 136 mm[Hg] Kameron Caruso MD Work Phone: [facility] 05-31-2024 08:47-0500 Body mass index (BMI) [Ratio] 27.28 kg/m2 Kameron Caruso MD Work Phone: [facility] 05-31-2024 08:47-0500 Body weight 79 kg Kameron Caruso MD Work Phone: [facility] 05-31-2024 08:47-0500 Heart rate 100 /min Kameron Caruso MD Work Phone: [facility] 05-31-2024 08:47-0500 Respiratory rate 18 /min Kameron Caruso MD Work Phone: [facility] 11-28-2023 09:42-0400 Diastolic blood pressure 78 mm[Hg] Kameron Caruso MD Work Phone: [facility] 11-28-2023 09:42-0400 Systolic blood pressure 142 mm[Hg] Kameron Caruso MD Work Phone: [facility] 11-28-2023 09:41-0400 Body mass index (BMI) [Ratio] 27.82 kg/m2 Kameron Caruso MD Work Phone: [facility] 11-28-2023 09:41-0400 Body weight 80.56 kg Kameron Caruso MD Work Phone: [facility] 11-28-2023 09:41-0400 Heart rate 68 /min Kameron Caruso MD Work Phone: [facility] 11-28-2023 09:41-0400 Respiratory rate 18 /min Kameron Caruso MD Work Phone: [facility] 10-10-2023 07:31-0400 Body mass index (BMI) [Ratio] 28.35 kg/m2 David Dupree APRN.ORGANIC SECTION TECHNICAL LEAD Work Phone: [facility] 10-10-2023 07:31-0400 Body temperature 97.5 [degF] David Dupree DIRECTOR PRISON.ORGANIC SECTION TECHNICAL LEAD Work Phone: [facility] 10-10-2023 07:31-0400 Body weight 82.1 kg David Dupree DIRECTOR PRISON.ORGANIC SECTION TECHNICAL LEAD Work Phone: [facility] 10-10-2023 07:31-0400 Diastolic blood pressure 82 mm[Hg] David Dupree DIRECTOR PRISON.ORGANIC SECTION TECHNICAL LEAD Work Phone: [facility] 10-10-2023 07:31-0400 Heart rate 58 /min David Joon DIRECTOR PRISON.ORGANIC SECTION TECHNICAL LEAD Work Phone: [facility] 10-10-2023 07:31-0400 Respiratory rate 18 /min David Pakantonia DIRECTOR PRISON.ORGANIC SECTION TECHNICAL LEAD Work Phone: [facility] 10-10-2023 07:31-0400 SaO2% (BldA) [Mass fraction] 100 % David Claudyshitalantonia DIRECTOR PRISON.ORGANIC SECTION TECHNICAL LEAD Work Phone: [facility] 10-10-2023 07:31-0400 Systolic blood pressure 128 mm[Hg] David Dupree DIRECTOR PRISON.ORGANIC SECTION TECHNICAL LEAD Work Phone: [facility] 09-29-2023 14:14-0400 Body mass index (BMI) [Ratio] 29 kg/m2 Radha Levine DIRECTOR PRISON.ORGANIC SECTION TECHNICAL LEAD Work Phone: [facility] 09-29-2023 14:14-0400 Body temperature 97.81 [degF] Radha Levine DIRECTOR PRISON.ORGANIC SECTION TECHNICAL LEAD Work Phone: [facility] 09-29-2023 14:14-0400 Body weight 84 kg Radha Levine DIRECTOR PRISON.ORGANIC SECTION TECHNICAL LEAD Work Phone: [facility] 09-29-2023 14:14-0400 Diastolic blood pressure 91 mm[Hg] Radha Levine DIRECTOR PRISON.ORGANIC SECTION TECHNICAL LEAD Work Phone: [facility] 09-29-2023 14:14-0400 Heart rate 54 /min Radha Levine DIRECTOR PRISON.ORGANIC SECTION TECHNICAL LEAD Work Phone: [facility] 09-29-2023 14:14-0400 Respiratory rate 18 /min Radha Levine DIRECTOR PRISON.ORGANIC SECTION TECHNICAL LEAD Work Phone: [facility] 09-29-2023 14:14-0400 SaO2% (BldA) [Mass fraction] 99 % Radha Levine DIRECTOR PRISON.ORGANIC SECTION TECHNICAL LEAD Work Phone: [facility] 09-29-2023 14:14-0400 Systolic blood pressure 148 mm[Hg] Radha Levine DIRECTOR PRISON.ORGANIC SECTION TECHNICAL LEAD Work Phone: [facility] 05-27-2022 09:42-0500 Body weight 83.83 kg Kameron Caruso MD Work Phone: [facility] 05-27-2022 09:42-0500 Diastolic blood pressure 84 mm[Hg] Kameron Caruso MD Work Phone: [facility] 05-27-2022 09:42-0500 Heart rate 68 /min Kameron Caruso MD Work Phone: [facility] 05-27-2022 09:42-0500 Respiratory rate 16 /min Kameron Caruso MD Work Phone: [facility] 05-27-2022 09:42-0500 Systolic blood pressure 136 mm[Hg] Kameron Caruso MD Work Phone: [facility] 03-02-2022 10:52-0400 Diastolic blood pressure 76 mm[Hg] Emma Tannhof DIRECTOR PRISON.ORGANIC SECTION TECHNICAL LEAD Work Phone: [facility] 03-02-2022 10:52-0400 Heart rate 92 /min Emma Tannhof DIRECTOR PRISON.ORGANIC SECTION TECHNICAL LEAD Work Phone: [facility] 03-02-2022 10:52-0400 Respiratory rate 18 /min Emma Tannhof DIRECTOR PRISON.ORGANIC SECTION TECHNICAL LEAD Work Phone: [facility] 03-02-2022 10:52-0400 Systolic blood pressure 140 mm[Hg] Emma Tannhof DIRECTOR PRISON.ORGANIC SECTION TECHNICAL LEAD Work Phone: [facility] 11-23-2021 09:39-0400 Body weight 83.1 kg Kameron Caruso MD Work Phone: [facility] 11-23-2021 09:39-0400 Diastolic blood pressure 80 mm[Hg] Kameron Caruso MD Work Phone: [facility] 11-23-2021 09:39-0400 Heart rate 84 /min Kameron Caruso MD Work Phone: [facility] 11-23-2021 09:39-0400 Respiratory rate 16 /min Kameron Caruso MD Work Phone: [facility] 11-23-2021 09:39-0400 Systolic blood pressure 138 mm[Hg] Kameron Caruso MD Work Phone: [facility] 10-16-2019 10:09-0400 BP Diastolic 72 mm[Hg] Santiago Miller [facility] , [place] 10-16-2019 10:09-0400 BP Systolic 144 mm[Hg] Santiago Miller [facility] [place] , [place] 10-16-2019 10:09-0400 Pulse (Heart Rate) 62 /min Santiago Miller [facility], [place] 10-16-2019 10:09-0400 Pulse Oximetry 98 % Santiago Miller [facility] , [place] 10-16-2019 10:09-0400 Respiratory Rate 18 /min Santiago Miller [facility] , [place] 10-16-2019 09:15-0400 BMI (Body Mass Index) 29.44 kg/m2 Santiago Miller [facility], [place] 10-16-2019 09:15-0400 Body Temperature 97.81 [degF] Santiago Miller [facility], [place] 10-16-2019 09:15-0400 Body weight 85.28 kg Santiago Miller [facility] , [place] 10-16-2019 09:15-0400 Height 170.2 cm Santiago Miller [facility] , [place] 01-09-2019 12:06-0400 BP Diastolic 73 mm[Hg] Santiago Miller [facility] , [place] 01-09-2019 12:06-0400 BP Systolic 121 mm[Hg] Santiago Miller [facility] , [place] 01-09-2019 11:50-0400 Pulse (Heart Rate) 64 /min Santiago Miller [facility], [place] 01-09-2019 11:50-0400 Pulse Oximetry 100 % Santiago Miller [facility] , [place] 01-09-2019 11:50-0400 Respiratory Rate 18 /min Santiago Miller [facility], [place] 01-09-2019 10:28-0400 BMI (Body Mass Index) 28.82 kg/m2 Santiago Miller [facility], [place] 01-09-2019 10:28 Body weight 83.46 kg Santiago Jose [facility] , [place] 01-09-2019 10: Height 170.2 cm Snatiago Jose [facility] , [place] 01-09-2019 10:27 Body Temperature 97.5 [degF] Santiago Miller [facility], [place] Encounters Encounter Date Encounter Type Care Provider Facility Start: 10-23-2024 ambulatory Safia Griderbonie OLS Fa cility:[facility] Start: 10-22-2024 ambulatory Efrandallskye Westone OLS Fa cility:[facility] Start: 10-15-2024 ambulatory Kameron Caruso Facilit y:[facility] Start: 10-08-2024 ambulatory Kameron Caruso Facilit y:[facility] Start: 10-02-2024 End: 10-02-[address] Mj Benavides MD -[facility] Work Phone: Start: 10-02-2024 End: 10-02-[address] Kameron Caruso MD Work Phone: [facility] Work Phone: Start: 10-01-2024 ambulatory Kameron Caruso Facilit y:[facility] Start: 10-01-2024 Registered Referred Safia Torres Start: 09-29-2024 ambulatory Safia VARGAS Fa cility:[facility] Start: 09-29-2024 Registered Referred Safia Torres Start: 09-24-2024 ambulatory Kameron Caruso Facilit y:[facility] Start: 09-24-2024 Registered Referred Safia Torres Start: 09-17-2024 ambulatory Kameron Caruso Facilit y:[facility] Start: 09-17-2024 Registered Referred Safia Torres Start: 09-11-2024 End: 09-11-2024 ambulatory Kameron Caruso Facility:[facility] Start: 09-10-2024 End: 09-10-2024 ambulatory Kameron [place] Facility:[facility] Start: 09-10-2024 Registered Referred Safia Ruelas MD -[facility] [place] Start: 08-30-2024 End: 08-30-2024 Telephone encounter Kameron Caruso MD Work Phone: [facility] [place] Comment on above: [facility] requesti ng verbal agree to follow Start: 08-15-2024 End: 09-09-2024 Evaluation and management of inpatient SILVINO HA DO Tyleranny Warnern Start: 08-09-2024 Evaluation and manag ement of inpatient KAMERON Concepción [facility] Facility:[facility] Start: 08-06-2024 Evaluation and manag ement of inpatient [facility] Start: 08-02-2024 End: 08-02-2024 ambulatory [facility] Facility:[facility] Start: 08-02-2024 End: 08-15-2024 Evaluation and [...] Kameron Caruso MD Work Phone: [facility] [place] Comment on above: medication not on cu rrent med list Start: 06-26-2024 End: 06-26-2024 Office outpatient visit 25 minutes Emma Sotomayor APRN.CNP Work Phone: [facility] Comment on above: Atrial fibrillation, unspecified type (HCC) (Primary Dx); Hypothyroidism, unspecified type; Need for malaria prophylaxis Start: 06-26-2024 End: 06-26-2024 ambulatory [facility]arm[facility] Facility:[facility] Start: 06-25-2024 ambulatory KAMERON Chirinos ity:[facility] Start: 06-24-2024 End: 06-24-2024 Telephone encounter Kameron Caruso MD Work Phone: [facility] Comment on above: Patient Update Start: 06-11-2024 End: 06-11-2024 Telephone encounter Kameron Caruso MD Work Phone: [facility] Comment on above: Results Start: 06-11-2024 End: 06-11-2024 ambulatory KAMERON CARUSO Facility:[facility] Start: 06-10-2024 End: 06-11-2024 Telephone encounter Kameron Caruso MD Work Phone: [facility] Comment on above: Medication Problem Start: 05-31-2024 End: 05-31-2024 ambulatory KAMERON CARUSO Facility:[facility] Start: 05-31-2024 End: 05-31-2024 Patient encounter procedure Kameron Caruso MD Work Phone: [facility] Comment on above: Essential hypertensi on, benign [...] Start: 05-23-2024 End: 05-23-2024 ambulatory KAMERON CARUSO Facility:[facility] Start: 11-28-2023 End: 11-28-2023 ambulatory KAMERON CARUSO Facility:[facility] Start: 11-28-2023 End: 11-28-2023 Patient encounter procedure Kameron Caruso MD Work Phone: [facility] Comment on above: 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, unspecified CKD stage, unspecified whether termite control representative insulin use (HCC) (Primary Dx); Essential hypertension, benign; Chronic kidney disease, stage 3a (HCC); Hyperlipidemia, unspecified hyperlipidemia type; Hypothyroidism, unspecified type; Edema of left lower leg; Memory loss; Type 2 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, without long-term current use of insulin (HCC) Start: 11-27-2023 End: 11-27-2023 ambulatory [facility] Facility:[facility] Start: 10-10-2023 End: 10-10-2023 ambulatory [facility] Facility:[facility] Start: 10-10-2023 End: 10-10-2023 Office outpatient visit 25 minutes David Dupree APRN.ORGANIC SECTION TECHNICAL LEAD Work Phone: [facility] Comment on above: Rash (Primary Dx) Start: 09-29-2023 End: 09-29-2023 ambulatory [facility] Facility:[facility] Start: 09-29-2023 End: 09-29-2023 Patient encounter procedure Radha Levine DIRECTOR PRISON.ORGANIC SECTION TECHNICAL LEAD Work Phone: [facility] Comment on above: Allergic contact lexi matitis due to plant (Primary Dx) Start: 09-19-2023 Refill Kameron nixon MD Work Phone: [facility] Comment on above: Refill Request Start: 04-08-2023 Telephone encounter Kameron bucio MD Work Phone: [address] [place] [address] Comment on above: Refill Request Start: 11-25-2022 Telephone encounter Kameron bucio MD Work Phone: [facility] [place] Comment on above: Patient Question Start: 05-27-2022 End: 05-27-2022 Patient encounter procedure Kameron Caruso MD Work Phone: [facility] [place] Comment on above: Essential hypertensi on, benign (Primary Dx); Hypothyroidism, unspecified type; Type 2 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, without long-term current use of insulin (HCC); Hyperlipidemia, unspecified hyperlipidemia type; Chronic kidney disease, stage 3a (HCC); Edema of left lower leg; Wellness examination Start: 05-27-2022 End: 05-27-2022 Patient encounter status [facility]amer[facility]uso [facility] Start: 04-11-2022 Refill Kameron nixon MD Work Phone: [facility] Comment on above: Refill Request Start: 03-02-2022 ambulatory Kameron nixon MD Work Phone: [facility] Comment on above: Back Pain Start: 03-02-2022 End: 03-02-2022 Patient encounter procedure Emma Sotomayor APRN.ORGANIC SECTION TECHNICAL LEAD Work Phone: [facility] Comment on above: Acute midline low ba ck pain without sciatica (Primary Dx) Start: 01-11-2022 Refill Mj ORTIZ RN.ORGANIC SECTION TECHNICAL LEAD Work Phone: [facility] Comment on above: Refill Request Start: 01-11-2022 Refill Kameron nixon MD Work Phone: [facility] Comment on above: Refill Request Start: 12-16-2021 Telephone encounter Kameron bucio MD Work Phone: [facility] Comment on above: Diabetic Testing Sup plies Start: 11-23-2021 End: 11-23-2021 Refill Kameron Caruso MD Work Phone: [facility] Comment on above: 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, unspecified CKD stage, unspecified whether residential insulin use (HCC) (Primary Dx); Essential hypertension, benign; Hyperlipidemia, unspecified hyperlipidemia type; Stage 3b chronic kidney disease (HCC); Hypothyroidism, unspecified type; Memory loss Start: 10-14-2021 Refill Kameron nixon MD Work Phone: [facility] Comment on above: Refill Request Start: 09-27-2021 Telephone encounter Kameron bucio MD Work Phone: [facility] Comment on above: information requeste d/rxs needed Start: 09-13-2021 Telephone encounter Kameron bucio MD Work Phone: [facility] [place] Comment on above: Patient Question; Me dication [...] Start: 08-15-2024 Assay of magnesium Abram Mccoy DIRECTOR PRISON-ORGANIC SECTION TECHNICAL LEAD Work Phone: Start: 08-15-2024 Glucose measurement, blood Christos Voss MD Work Phone: Start: 08-14-2024 Glucose measurement, blood Christos Voss MD Work Phone: Start: 08-14-2024 Glucose measurement, blood Christos Voss MD Work Phone: Start: 08-14-2024 Glucose measurement, elana Voss MD Work Phone: Start: 08-14-2024 Assay of magnesium Abram Mccoy DIRECTOR PRISON-[employer]IC SECTION TECHNICAL LEAD Work Phone: Start: 08-13-2024 Glucose measurement, blood Christos Voss MD Work Phone: Start: 08-13-2024 Glucose measurement, blood Christos Voss MD Work Phone: Start: 08-13-2024 Glucose measurement, blood Christos Voss MD Work Phone: Start: 08-13-2024 Glucose measurement, blood Felicity Castellano MD Work Phone: Start: 08-13-2024 Assay of magnesium Nase rin M Nadine DIRECTOR PRISON-ORGANIC SECTION TECHNICAL LEAD Work Phone: Start: 08-13-2024 Glucose measurement, blood Felicity Castellano MD Work Phone: Start: 08-12-2024 Glucose measurement, blood Felicity Castellano MD Work Phone: Start: 08-12-2024 Glucose measurement, blood Felicity Castellano MD Work Phone: Start: 08-12-2024 Glucose measurement, blood Felicity Castellano MD Work Phone: Start: 08-12-2024 Assay of magnesium Nase rin M Nadine DIRECTOR PRISON-[employer]GANIC SECTION TECHNICAL LEAD Work Phone: Start: 08-12-2024 Glucose measurement, blood Felicity Castellano MD Work Phone: Start: 08-11-2024 Glucose measurement, blood Felicity Castellano MD Work Phone: Start: 08-11-2024 Glucose measurement, blood Felicity Castellano MD Work Phone: Start: 08-11-2024 Glucose measurement, blood Felicity Castellano MD Work Phone: Start: 08-11-2024 Assay of magnesium Nase rin M Nadine DIRECTOR PRISON-[employer]IC SECTION TECHNICAL LEAD Work Phone: Start: 08-10-2024 Glucose measurement, blood Felicity Castellano MD Work Phone: Start: 08-10-2024 Glucose measurement, blood Felicity Castellano MD Work Phone: Start: 08-10-2024 End: 08-10-2024 Culture bacterial blood aerobic w/id isolates Radha Garza Simón DIRECTOR PRISON-[employer]GANIC SECTION TECHNICAL LEAD Work Phone: Start: 08-10-2024 Glucose measurement, blood Felicity Castellano MD Work Phone: Start: 08-10-2024 End: 08-10-2024 Glucose measurement, blood Felicity Castellano MD Work Phone: Start: 08-10-2024 Glucose measurement, blood Felicity Castellano MD Work Phone: Start: 08-10-2024 Assay of magnesium Abram Mccoy DIRECTOR [employer]IC SECTION TECHNICAL LEAD Work Phone: Start: 08-10-2024 Glucose measurement, blood [...] Work Phone: Start: 08-09-2024 Assay of magnesium Abdoule scott Mccoy DIRECTOR PR[employer]IC SECTION TECHNICAL LEAD Work Phone: Start: 08-09-2024 Glucose measurement, blood Felicity Castellano MD Work Phone: Start: 08-08-2024 Glucose measurement, blood Felicity Castellano MD Work Phone: Start: 08-08-2024 Culture bct isol&prs mptv id isolate ea urine Bella Cardenas DIRECTOR PR[employer]IC SECTION TECHNICAL LEAD Work Phone: Start: 08-08-2024 EXTRA MICRO Bella matthews DIRECTOR PRISON-[employer]IC SECTION TECHNICAL LEAD Work Phone: Start: 08-08-2024 URINALYSIS REFLEX TO CULTURE Bella Cardenas DIRECTOR PRISON-[employer]GANIC SECTION TECHNICAL LEAD Work Phone: Start: 08-08-2024 Ct head/brain w/o co ntrast material Bella Cardenas DIRECTOR PRISON-[employer]GANIC SECTION TECHNICAL LEAD Work Phone: Start: 08-08-2024 Glucose measurement, blood Felicity Castellano MD Work Phone: Start: 08-08-2024 End: 08-08-2024 Glucose measurement, blood Felicity Castellano MD Work Phone: Start: 08-08-2024 Assay of magnesium Abram Schulteameh DIRECTOR PRISON-[employer]IC SECTION TECHNICAL LEAD Work Phone: Start: 08-07-2024 Glucose measurement, blood Felicity Castellano MD Work Phone: Start: 08-07-2024 Glucose measurement, blood Felicity Castellano MD Work Phone: Start: 08-07-2024 Glucose measurement, blood Felicity Castellano MD Work Phone: Start: 08-07-2024 Glucose measurement, blood Felicity Castellano MD Work Phone: Start: 08-06-2024 Glucose measurement, blood Felicity Castellano MD Work Phone: Start: 08-06-2024 Assay of magnesium Abram Mccoy DIRECTOR PR[employer]IC SECTION TECHNICAL LEAD Work Phone: Start: 08-06-2024 Glucose measurement, blood Felicity Castellano MD Work Phone: Start: 08-06-2024 Glucose measurement, blood Felicity Castellano MD Work Phone: Start: 08-06-2024 Radiologic exam swal low function contrast study Shanna Russ DIRECTOR PRISON-[employer]GANIC SECTION TECHNICAL LEAD Work Phone: Start: 08-06-2024 SPEECH MODIFIED KEAGAN UM SWALLOW Shanna Russ DIRECTOR PR[employer]IC SECTION TECHNICAL LEAD Work Phone: Start: 08-06-2024 Glucose measurement, blood Felicity Castellano MD Work Phone: Start: 08-05-2024 Glucose measurement, blood Felicity Castellano MD Work Phone: Start: 08-05-2024 Assay of magnesium Abdoule scott Hwang Nadine DIRECTOR PRISON-[employer]GANIC SECTION TECHNICAL LEAD Work Phone: Start: 08-05-2024 Glucose measurement, blood Felicity Castellano MD Work Phone: Start: 08-05-2024 Glucose measurement, blood Felicity Castellano MD Work Phone: Start: 08-05-2024 Echo tthrc r-t 2d w/wom-mode compl spec&colr d Taran Traore DIRECTOR PRISON-[employer]GANIC SECTION TECHNICAL LEAD Work Phone: Start: 08-05-2024 Glucose measurement, blood Felicity Castellano MD Work Phone: Start: 08-05-2024 Assay of magnesium Abdoule scott Hwang Nadine DIRECTOR PR[employer]IC SECTION TECHNICAL LEAD Work Phone: Start: 08-05-2024 Glucose measurement, blood [...] Start: 08-04-2024 Assay of magnesium Abram Mccoy DIRECTOR PR[employer]IC SECTION TECHNICAL LEAD Work Phone: Start: 08-04-2024 Glucose measurement, blood Richard Mejia MD Work Phone: Start: 08-03-2024 Ct head/brain w/o co ntrast material Shaila Méndez PA-C Start: 08-03-2024 Sodium serum plasma or whole blood Shanna Denise MD Work Phone: Start: 08-03-2024 Glucose measurement, blood Richard Mejia MD Work Phone: Start: 08-03-2024 Radiologic exam abdo men 1 view Balbir Mccoy DIRECTOR [employer] SECTION TECHNICAL LEAD Work Phone: Start: 08-03-2024 Glucose measurement, blood Richard Mejia MD Work Phone: Start: 08-03-2024 Sodium serum plasma or whole blood Shanna Denise MD Work Phone: Start: 08-03-2024 Glucose measurement, blood Richard Mejia MD Work Phone: Start: 08-03-2024 Ct head/brain w/o co ntrast material Shaila Méndez PA-C Start: 08-03-2024 Glucose measurement, blood Richard Mejia MD Work Phone: Start: 08-03-2024 End: 08-03-2024 Mri brain brain stem w/o contrast material Taran Traore DIRECTOR [employer] SECTION TECHNICAL LEAD Work Phone: Start: 08-03-2024 ABORH TYPE RECONFIRMATION Cindy MONTANEZ Work Phone: Start: 08-03-2024 Assay of magnesium Abram Mccoy DIRECTOR [employer] SECTION TECHNICAL LEAD Work Phone: Start: 08-02-2024 Glucose measurement, blood [...] Performed By: #### X M #### [facility] ([facility]) [address] [place] [address] Start: 08-02-2024 EXTRA MICRO Taran Traore DIRECTOR PR[employer]IC SECTION TECHNICAL LEAD Work Phone: Start: 08-02-2024 Hemoglobin glycosylated a1c Balbir Mccoy DIRECTOR PR[employer]IC SECTION TECHNICAL LEAD Work Phone: Start: 08-02-2024 Hepatic function panel Balbir Mccoy DIRECTOR PR[employer]IC SECTION TECHNICAL LEAD Work Phone: Start: 08-02-2024 Iadna s aureus ampli fied probe tq Balbir Mccoy DIRECTOR PR[employer]IC SECTION TECHNICAL LEAD Work Phone: Start: 08-02-2024 URINALYSIS REFLEX TO CULTURE Taran Robb Traore DIRECTOR PR[employer]IC SECTION TECHNICAL LEAD Work Phone: Start: 08-02-2024 Urnls dip stick/tabl et reagent auto microscopy Taran Robb Traore DIRECTOR PR[employer]IC SECTION TECHNICAL LEAD Work Phone: Start: 08-02-2024 SARS-CoV-2, Influenz a [...] Author Start: 08-15-2025 Complete blood count Hemoglobin/Hematocrit [facility] Start: 08-15-2025 Creatinine measurement Serum Creatinine [facility] Start: 08-02-2025 Thyroid stimulating hormone measurement [facility] Start: 06-26-2025 Annual PCP Team Chronic Disease Visit Annual PCP Team Chronic Disease Visit [facility] Start: 05-31-2025 Annual PCP Team Chronic Disease Visit Annual PCP Team Chronic Disease Visit [facility] Start: 05-31-2025 Covid-19 Vaccine ( season) Covid-19 Vaccine () [facility] Comment on above: Postponed from 01/14/2024 (Declined at t his time) Start: 05-31-2025 Pneumococcal Vaccine: 50+ (2 of 2 - PPSV23) Pneumococcal Vaccine: 50+ (2 of 2 - PPSV23) [facility] Comment on above: Postponed from 12/19/2019 (Declined at t his time) Start: 05-23-2025 Creatinine measurement Serum Creatinine [facility] Start: 05-23-2025 Hepatitis B screening Urine Albumin:Creatinine Ratio [facility] Start: 05-23-2025 Hepatitis B surface antibody level LDL Cholesterol [facility] Start: 02-02-2025 Hemoglobin A1c measurement HbA1C [facility] Start: 01-13-2025 Influenza vaccination [facility] Start: 01-03-2025 Glaucoma screening Dilated Retinal Exam [facility] Start: 12-24-2024 End: 12-24-2024 Patient encounter procedure 12/24/2024 9:20 AM EDT Office Visit [facility] [address] [place] [address] Kameron Caruso MD [address] [place] [address] 6 month follow up [facility] [place] Comment on above: 6 month follow up Start: 11-28-2024 End: 02-27-2025 Comprehensive metabolic 2000 panel - Serum or Plasma COMPREHENSIVE METABOLIC PANEL Lab Routine Essential hypertension, benign Chronic kidney disease, stage 3a (HCC) Hyperlipidemia, unspecified hyperlipidemia type Expected: 11/28/2024 (Approximate), Expires: 02/27/2025 [facility] Work Phone: Comment on above: Expected: 11/28/2024 (Approximate), Expi res: 02/27/2025 Start: 11-28-2024 End: 02-27-2025 Hemoglobin A1c in Blood HEMOGLOBIN A1C Lab Routine Expected: 11/28/2024 (Approximate), Expires: 02/27/2025 [facility] Comment on above: Expected: 11/28/2024 (Approximate), Expi res: 02/27/2025 Start: 11-28-2024 End: 02-27-2025 Lipid 1996 panel - Serum or Plasma LIPID PANEL BASIC Lab Routine Essential hypertension, benign Hyperlipidemia, unspecified hyperlipidemia type Expected: 11/28/2024 (Approximate), Expires: 02/27/2025 [facility] Comment on above: Expected: 11/28/2024 (Approximate), Expi res: 02/27/2025 Start: 11-28-2024 End: 02-27-2025 Thyrotropin [Units/volume] in Serum or Plasma THYROID STIMULATING HORMONE Lab Routine Hypothyroidism, unspecified type Expected: 11/28/2024 (Approximate), Expires: 02/27/2025 [facility] Comment on above: Expected: 11/28/2024 (Approximate), Expi res: 02/27/2025 Start: 11-27-2024 Annual PCP Team Chronic Disease Visit Annual PCP Team Chronic Disease Visit [facility] Start: 11-27-2024 Anxiety Screening Anxiety Screening [facility] Start: 11-27-2024 Depression Screening Depression Screening [facility] Start: 11-27-2024 RSV Vaccine (1 - 1-dose 60+ series) RSV Vaccine (1 - 1-dose 60+ series) [facility] Comment on above: Postponed from 2004 (Declined at t his time) Start: 11-27-2024 RSV Vaccine (1 - 1-dose 75+ series) RSV Vaccine (1 - 1-dose 75+ series) [facility] Comment on above: Postponed from 10/26/2019 (Declined at t his time) Start: 11-26-2024 Creatinine measurement Serum Creatinine [facility] Start: 11-26-2024 Hepatitis B surface antibody level LDL Cholesterol [facility] Start: 11-20-2024 Hemoglobin A1c measurement HbA1C [facility] Start: 11-11-2024 Influenza vaccination Influenza Vaccine (#1) [facility] Comment on above: Postponed from 01/14/2024 (Declined at t his time) Start: 10-08-2024 End: 10-08-2024 ambulatory [facility] Start: 10-02-2024 Evaluation of diagnostic study results 12 Lead EKG performed by [facility] Start: 08-02-2024 [facility] Start: 08-02-2024 SARS-CoV-2, Influenza & RSV (PCR) SARS-CoV-2, Influenza & RSV (PCR) [facility] Start: 08-02-2024 End: 08-02-2024 [facility] Start: 08-02-2024 Electrocardiographic procedure [facility] Start: 08-02-2024 Oxygen therapy [facility] Start: 07-24-2024 End: 10-23-2024 Thyrotropin [Units/volume] in Serum or Plasma THYROID STIMULATING HORMONE Lab Routine Hypothyroidism, unspecified type Expected: 07/24/2024, Expires: 10/23/2024 [facility] Work Phone: Comment on above: Expected: 07/24/2024, Expires: Start: 07-24-2024 End: 10-23-2024 Thyroxine (T4) free [Mass/volume] in Serum or Plasma T4 FREE/FREE THYROXINE Lab Routine Hypothyroidism, unspecified type Expected: 07/24/2024, Expires: 10/23/2024 [facility] Comment on above: Expected: 07/24/2024, Expires: Start: 06-25-2024 End: 06-25-2024 Patient encounter procedure 06/25/2024 9:40 AM EST Office Visit [facility] [place] [address] [place] [address] Kameron Caruso MD [address] [place] [address] 1 mo f/u, new dx afib. [facility] [place] Comment on above: 1 mo f/u, new dx afib. Start: 06-11-2024 End: 06-11-2024 Patient encounter procedure 06/11/2024 8:50 AM EST Office Visit Cardiology [address] [place] [address] Atrial fibrillation, unspecified type (HCC) [I48.91] Cardiology Comment on above: Atrial fibrillation, unspecified type (H CC) [I48.91] Start: 05-30-2024 Annual PCP Team Chronic Disease Visit Annual PCP Team Chronic Disease Visit [facility] Start: 05-30-2024 End: 08-29-2024 Comprehensive metabolic 2000 panel - Serum or Plasma COMPREHENSIVE METABOLIC PANEL Lab Routine Type 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, unspecified CKD stage, unspecified whether residential insulin use (HCC) Essential hypertension, benign Chronic kidney disease, stage 3a (HCC) Hyperlipidemia, unspecified hyperlipidemia type Expected: 05/30/2024 (Approximate), Expires: 08/29/2024 [facility] Work Phone: Comment on above: Expected: 05/30/2024 (Approximate), Expi res: 08/29/2024 Start: 05-30-2024 Covid-19 Vaccine (2022-) Covid-19 Vaccine () [facility] Comment on above: Postponed from 01/13/2023 (Declined at t his time) Start: 05-30-2024 End: 08-29-2024 Hemoglobin A1c in Blood HEMOGLOBIN A1C Lab Routine Type 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, unspecified CKD stage, unspecified whether residential insulin use (HCC) Expected: 05/30/2024 (Approximate), Expires: 08/29/2024 [facility] Comment on above: Expected: 05/30/2024 (Approximate), Expi res: 08/29/2024 Start: 05-30-2024 Hepatitis C screening Hepatitis C Screening [facility] Comment on above: Postponed from 1962 (Declined at t his time) Start: 05-30-2024 End: 08-29-2024 Lipid 1996 panel - Serum or Plasma LIPID PANEL BASIC Lab Routine Type 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, unspecified CKD stage, unspecified whether termite control representative insulin use (HCC) Essential hypertension, benign Hyperlipidemia, unspecified hyperlipidemia type Expected: 05/30/2024 (Approximate), Expires: 08/29/2024 [facility] Comment on above: Expected: 05/30/2024 (Approximate), Expi res: 08/29/2024 Start: 05-30-2024 End: 08-29-2024 Microalbumin/Creatinine [Mass Ratio] in Urine ALBUMIN/CREATININE RATIO, URINE Lab Routine Type 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, unspecified CKD stage, unspecified whether termite control representative insulin use (HCC) Expected: 05/30/2024 (Approximate), Expires: 08/29/2024 [facility] Comment on above: Expected: 05/30/2024 (Approximate), Expi res: 08/29/2024 Start: 05-30-2024 Pneumococcal Vaccine: 65+ (2 of 2 - PPSV23 or PCV20) Pneumococcal Vaccine: 65+ (2 of 2 - PPSV23 or PCV20) [facility] Comment on above: Postponed from 12/19/2019 (Declined at t his time) Start: 05-30-2024 End: 08-29-2024 Thyrotropin [Units/volume] in Serum or Plasma THYROID STIMULATING HORMONE Lab Routine Hypothyroidism, unspecified type Expected: 05/30/2024 (Approximate), Expires: 08/29/2024 [facility] Comment on above: Expected: 05/30/2024 (Approximate), Expi res: 08/29/2024 Start: 05-30-2024 End: 05-30-2024 Patient encounter procedure 05/30/2024 9:40 AM EST Office Visit [facility] [address] [place] [id number] Kameron Caruso MD [address] [place] [id number] 6 mo f/u [facility] Comment on above: 6 mo f/u Start: 05-29-2024 Hemoglobin A1c measurement HbA1C [facility] Start: 05-16-2024 Creatinine measurement Serum Creatinine [facility] Start: 05-16-2024 Hepatitis B screening Urine Albumin:Creatinine Ratio [facility] Start: 05-16-2024 Hepatitis B surface antibody level LDL Cholesterol [facility] Start: 05-15-2024 Advance Directive Discussion Advance Directive Discussion [facility] Start: 01-14-2024 Influenza vaccination [facility] Start: 01-14-2024 [facility] Start: 01-04-2024 Glaucoma screening Dilated Retinal Exam [facility] Start: 01-04-2024 Hepatitis C antibody, confirmatory test Dilated Retinal Exam [facility] Start: 11-28-2023 End: 11-28-2023 Patient encounter procedure 11/28/2023 9:40 AM EDT Office Visit Family [facility] [address] [place] [place] [address] Kameron Caruso MD [address] [place] [id number] 6 mo follow up Family [facility] Comment on above: 6 mo follow up Start: 11-26-2023 ANNUAL PCP TEAM CHRONIC DISEASE VISIT ANNUAL PCP TEAM CHRONIC DISEASE VISIT [facility] Start: 11-26-2023 BP CONTROLLED (<130/80) BP CONTROLLED (<130/80) [facility] Start: 11-23-2023 Complete blood count Hemoglobin/Hematocrit [facility] Start: 11-23-2023 HEMOGLOBIN/HEMATOCRIT HEMOGLOBIN/HEMATOCRIT [facility] Start: 11-23-2023 Hepatitis B surface antibody level LDL CHOLESTEROL [facility] Start: 11-23-2023 SERUM CREATININE SERUM CREATININE [facility] Start: 11-14-2023 Hemoglobin A1c measurement HbA1C [facility] Start: 05-27-2023 ANNUAL PCP TEAM CHRONIC DISEASE VISIT ANNUAL PCP TEAM CHRONIC DISEASE VISIT [facility] Start: 05-27-2023 COVID-19 VACCINE (2 - Booster for Alyssa series) COVID-19 VACCINE (2 - Booster for Alyssa series) [facility] Comment on above: Postponed from 09/17/2020 (Declined at t his time) Start: 05-27-2023 HEPATITIS C SCREENING HEPATITIS C SCREENING [facility] Comment on above: Postponed from 1962 (Declined at t his time) Start: 05-25-2023 Hemoglobin A1c/Hemoglobin.total in Blood HBA1C [facility] Start: 05-19-2023 HEMOGLOBIN/HEMATOCRIT HEMOGLOBIN/HEMATOCRIT [facility] Start: 05-19-2023 Hepatitis B surface antibody level LDL CHOLESTEROL [facility] Start: 05-19-2023 SERUM CREATININE SERUM CREATININE [facility] Start: 05-15-2023 Advance Directive Discussion Advance Directive Discussion [facility] Start: 05-15-2023 Behavioral Health Screening Behavioral Health Screening [facility] Start: 03-02-2023 ANNUAL PCP TEAM CHRONIC DISEASE VISIT ANNUAL PCP TEAM CHRONIC DISEASE VISIT [facility] Start: 01-13-2023 Covid-19 Vaccine () Covid-19 Vaccine () [facility] Start: 01-13-2023 Influenza vaccination [facility] Start: 12-27-2022 Hepatitis C antibody, confirmatory test DILATED RETINAL EXAM [facility] Start: 11-24-2022 End: 01-24-2023 CBC panel - Blood by Automated count CBC Lab Routine Essential hypertension, benign Hypothyroidism, unspecified type Expected: 11/24/2022 (Approximate), Expires: 01/24/2023 [facility] Work Phone: Comment on above: Expected: 11/24/2022 (Approximate), Expi res: 01/24/2023 Start: 11-24-2022 End: 01-24-2023 Comprehensive metabolic 2000 panel - Serum or Plasma COMP METABOLIC PANEL Lab Routine Essential hypertension, benign Type 2 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, without long-term current use of insulin (HCC) Hyperlipidemia, unspecified hyperlipidemia type Expected: 11/24/2022 (Approximate), Expires: 01/24/2023 [facility] Work Phone: Comment on above: Expected: 11/24/2022 (Approximate), Expi res: 01/24/2023 Start: 11-24-2022 End: 01-24-2023 Hemoglobin A1c in Blood HGB A1C Lab Routine Type 2 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, without long-term current use of insulin (HCC) Expected: 11/24/2022 (Approximate), Expires: 01/24/2023 [facility] Work Phone: Comment on above: Expected: 11/24/2022 (Approximate), Expi res: 01/24/2023 Start: 11-24-2022 End: 01-24-2023 Lipid 1996 panel - Serum or Plasma LIPID PANEL BASIC Lab Routine Essential hypertension, benign Type 2 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, without long-term current use of insulin (HCC) Hyperlipidemia, unspecified hyperlipidemia type Expected: 11/24/2022 (Approximate), Expires: 01/24/2023 [facility] Work Phone: Comment on above: Expected: 11/24/2022 (Approximate), Expi res: 01/24/2023 Start: 11-24-2022 End: 01-24-2023 Thyrotropin [Units/volume] in Serum or Plasma TSH BLD Lab Routine Hypothyroidism, unspecified type Expected: 11/24/2022 (Approximate), Expires: 01/24/2023 [facility] Work Phone: Comment on above: Expected: 11/24/2022 (Approximate), Expi res: 01/24/2023 Start: 11-23-2022 3 comp foot exam completed DIABETIC FOOT EXAM [facility] Start: 11-23-2022 ANNUAL PCP TEAM CHRONIC DISEASE VISIT ANNUAL PCP TEAM CHRONIC DISEASE VISIT [facility] Start: 11-23-2022 Diabetic foot examination Diabetic Foot Exam [facility] Start: 11-20-2022 Hepatitis B screening URINE ALBUMIN:CREATININE RATIO [facility] [facility] Start: 11-20-2022 Hepatitis B surface antibody level LDL CHOLESTEROL [facility] Start: 11-20-2022 SERUM CREATININE SERUM CREATININE [facility] Start: 11-16-2022 Hemoglobin A1c/Hemoglobin.total in Blood HBA1C [facility] Start: 11-11-2022 Influenza vaccination INFLUENZA (#1) [facility] Comment on above: Postponed from 01/13/2022 (Declined at t his time) Start: 05-26-2022 End: 07-26-2022 CBC panel - Blood by Automated count CBC Lab Routine Essential hypertension, benign Stage 3b chronic kidney disease (HCC) Expected: 05/26/2022 (Approximate), Expires: 07/26/2022 [facility] Work Phone: Comment on above: Expected: 05/26/2022 (Approximate), Expi res: 07/26/2022 Start: 05-26-2022 End: 07-26-2022 Comprehensive metabolic 2000 panel - Serum or Plasma COMP METABOLIC PANEL Lab Routine Type 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, unspecified CKD stage, unspecified whether residential insulin use (HCC) Essential hypertension, benign Hyperlipidemia, unspecified hyperlipidemia type Stage 3b chronic kidney disease (HCC) Expected: 05/26/2022 (Approximate), Expires: 07/26/2022 [facility] Work Phone: Comment on above: Expected: 05/26/2022 (Approximate), Expi res: 07/26/2022 Start: 05-26-2022 End: 07-26-2022 Hemoglobin A1c in Blood HGB A1C Lab Routine Type 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, unspecified CKD stage, unspecified whether residential insulin use (HCC) Expected: 05/26/2022 (Approximate), Expires: 07/26/2022 [facility] Work Phone: Comment on above: Expected: 05/26/2022 (Approximate), Expi res: 07/26/2022 Start: 05-26-2022 End: 07-26-2022 Lipid 1996 panel - Serum or Plasma LIPID PANEL BASIC Lab Routine Essential hypertension, benign Hyperlipidemia, unspecified hyperlipidemia type Expected: 05/26/2022 (Approximate), Expires: 07/26/2022 [facility] Work Phone: Comment on above: Expected: 05/26/2022 (Approximate), Expi res: 07/26/2022 Start: 05-26-2022 End: 07-26-2022 Thyrotropin [Units/volume] in Serum or Plasma TSH BLD Lab Routine Hypothyroidism, unspecified type Expected: 05/26/2022 (Approximate), Expires: 07/26/2022 [facility] Work Phone: Comment on above: Expected: 05/26/2022 (Approximate), Expi res: 07/26/2022 Start: 05-23-2022 Hemoglobin A1c/Hemoglobin.total in Blood HBA1C [facility] Start: 05-18-2022 ANNUAL PCP TEAM CHRONIC DISEASE VISIT ANNUAL PCP TEAM CHRONIC DISEASE VISIT [facility] Start: 05-17-2022 Hepatitis B surface antibody level LDL CHOLESTEROL [facility] Start: 05-17-2022 SERUM CREATININE SERUM CREATININE [facility] Start: 05-15-2022 ADVANCE DIRECTIVE DISCUSSION ADVANCE DIRECTIVE DISCUSSION [facility] Start: 01-13-2022 Influenza vaccination [facility] Start: 01-11-2022 Hepatitis C antibody, confirmatory test DILATED RETINAL EXAM [facility] Start: 11-14-2021 Hemoglobin A1c/Hemoglobin.total in Blood HBA1C [facility] Start: 11-06-2021 Screening for malignant neoplasm of breast [facility] Start: 11-05-2021 3 comp foot exam completed DIABETIC FOOT EXAM [facility] Start: 11-05-2021 Adult depression screening assessment DEPRESSION SCREENING [facility] Start: 11-04-2021 Hepatitis B screening URINE ALBUMIN:CREATININE RATIO [facility] Start: 10-15-2021 Hepa vaccine adult dose for intramuscular use HEPATITIS A VACCINE ADULT IM Immunization/Injection Routine Need for vaccination Expected: 10/15/2021 [facility] Work Phone: Comment on above: Expected: 10/15/2021 Start: 10-15-2021 Tdap vaccine 7 yrs/> im TDAP VACCINE AGE 7+ IM Immunization/Injection Routine Need for vaccination Expected: 10/15/2021 [facility] Work Phone: Comment on above: Expected: 10/15/2021 Start: 05-15-2021 ADVANCE DIRECTIVE DISCUSSION ADVANCE DIRECTIVE DISCUSSION [facility] Start: 05-15-2021 DEPRESSION ASSESSMENT DEPRESSION ASSESSMENT [facility] Start: 10-23-2020 PNEUMOCOCCAL: 65+ (2 - PPSV23 if available, else PCV20) PNEUMOCOCCAL: 65+ (2 - PPSV23 if available, else PCV20) [facility] Start: 10-23-2020 PNEUMOCOCCAL: 65+ (2 - PPSV23 or PCV20) PNEUMOCOCCAL: 65+ (2 - PPSV23 or PCV20) [facility] Start: 10-16-2020 HEMOGLOBIN/HEMATOCRIT HEMOGLOBIN/HEMATOCRIT [facility] Start: 09-17-2020 COVID-19 VACCINE (2 - Booster for Alyssa series) COVID-19 VACCINE (2 - Booster for Alyssa series) [facility] Start: 12-19-2019 Pneumococcal vaccination [facility] Start: 12-19-2019 Pneumococcal Vaccine: 65+ (2 - PPSV23 or PCV20) Pneumococcal Vaccine: 65+ (2 - PPSV23 or PCV20) [facility] Start: 12-19-2019 PNEUMOCOCCAL: 65+ (2 - PPSV23 or PCV20) PNEUMOCOCCAL: 65+ (2 - PPSV23 or PCV20) [facility] Start: 11-08-2019 Screening for malignant neoplasm of colon [facility] Start: 10-26-2019 [facility] Start: 01-13-2019 Influenza vaccination Flu vaccine (#1) [place] Start: 12-23-2018 Annual Wellness Visit (AWV) Annual Wellness Visit (AWV) [place] Start: 2009 DEXA (modify frequency per FRAX score) DEXA (modify frequency per FRAX score) [place] Start: 2009 Pneumococcal 65+ years Vaccine (1 of 1 - PPSV23) Pneumococcal 65+ years Vaccine (1 of 1 - PPSV23) [place] Start: 2009 Pneumococcal 65+ years Vaccine (1 of 2 - PCV13) Pneumococcal 65+ years Vaccine (1 of 2 - PCV13) [place] Start: 10-26-2007 Annual Wellness Visit (AWV) Annual Wellness Visit (AWV) [place] Start: 2004 Hepatitis B Vaccine (1 of 3 - Risk 3-dose series) Hepatitis B Vaccine (1 of 3 - Risk 3-dose series) [facility] Start: 2004 RSV Vaccine (1 - 1-dose 60+ series) RSV Vaccine (1 - 1-dose 60+ series) [facility] Start: 10-26-1999 Screening for osteoporosis DEXA (modify frequency per FRAX score) [place] Start: 1994 Breast cancer screen Breast cancer screen [place] Start: 1994 Colon cancer screen colonoscopy Colon cancer screen colonoscopy [place] Start: 1994 Screening for malignant neoplasm of breast Breast cancer screen [place] Start: 1994 Screening for malignant neoplasm of colon Colon cancer screen colonoscopy [place] Start: 1994 Shingles Vaccine (1 of 2) Shingles Vaccine (1 of 2) [place] Start: 1984 Lipid screen Lipid screen [place] Start: 1965 Screening for malignant neoplasm of cervix [facility] Start: 10-26-1963 DTaP/Tdap/Td vaccine (1 - Tdap) DTaP/Tdap/Td vaccine (1 - Tdap) [place] Start: 10-26-1963 Third diphtheria, tetanus and acellular pertussis (DTaP) vaccination [facility] Start: 10-26-1963 Urine microalbumin profile [facility] Start: 1962 BP CONTROLLED (<130/80) BP CONTROLLED (<130/80) [facility] Start: 1962 HEPATITIS C SCREENING HEPATITIS C SCREENING [facility] Start: 1954 Lipid panel Lipid screen [place] Start: 1944 Creatinine measurement Creatinine monitoring [place], [place] Start: 1944 Creatinine monitoring Creatinine monitoring [place], [place] Start: 1944 Hepatitis C screen Hepatitis C screen [place] Start: 1944 Hepatitis C screening [facility] Start: 1944 Potassium monitoring Potassium monitoring [place] Start: 1944 Screening for osteoporosis [facility] Start: 1944 Tetanus vaccination [facility] End: 01-09-2019 Blood glucose - POCT Blood glucose - POCT Point of Care Testing Routine One Time for 1 Occurrences starting 01/09/2019 until 01/09/2019 [place] Comment on above: One Time for 1 Occurrences starting 12/14 until 01/09/2019 ECG COMPLETE [facility] Comment on above: Ordered: 05/31/2024 End: 05-31-2025 Echocardiography ECHO Cardiology Routine Atrial fibrillation, unspecified type (HCC) 1 Occurrences starting 05/31/2024 until 05/31/2025 [facility] Comment on above: 1 Occurrences starting 05/31/2024 until 05/31/2025 Patient referral [facility] Work Phone: End: 01-09-2019 Pulse Oximetry Spot Check Pulse Oximetry Spot Check Respiratory Care Routine One Time for 1 Occurrences starting 01/09/2019 until 01/09/2019 [place] Comment on above: One Time for 1 Occurrences starting 12/14 until 01/09/2019 End: 08-02-2024 PV FLUOROSCOPY OR U [facility] End: 08-02-2024 Standard ECG [facility] Immunizations Immunization Date Immunization Notes Care Provider Paramjit hassan 07-23-2020 SARS-CoV-2 (COVID-19 ) Ad26 vaccine, recombinant SILVINO HA DO Tyler Garcia Comment on above: Result Comment: 2024: [id number] 02-27-2020 influenza, high dose seasonal, preservative-free Kameron Caruso MD Work Phone: [facility] 02-27-2020 influenza virus vaccine, unspecified formulation Kameron Caruso MD Work Phone: [facility] 10-24-2019 pneumococcal conjuga te vaccine, 13 valent Kameron Caruso MD Work Phone: [facility] 10-24-2019 zoster vaccine recombinant Kameron Caruso MD Work Phone: [facility] 07-25-2019 influenza virus vaccine, unspecified formulation SILVINO HA DO [facility] 07-25-2019 influenza, seasonal, injectable Kameron Caruso MD Work Phone: [facility] 07-25-2019 zoster vaccine recombinant Kameron Caruso MD Work Phone: [facility] 04-13-2015 influenza virus vaccine, unspecified formulation SILVINO HA DO [facility] 05-01-2014 influenza virus vaccine, unspecified formulation SILVINO HA DO [facility] 05-01-2014 influenza, high dose seasonal, preservative-free Kameron Caruso MD Work Phone: [facility] 02-22-2012 influenza virus vaccine, unspecified formulation Kameron Caruso MD Work Phone: [facility] Work Phone: 03-19-2007 influenza virus vaccine, unspecified formulation Kameron Caruso MD Work Phone: [facility] Work Phone: Payers Date Payer Category Payer Medicare [id number] 2024 Unknown [id number] 2024 Self-pay 2018 Medicare [employer]-MEDICA RE ADVANTAGE [employer]ARE ADVANTAGE xxxxxxxxxxx 2018-Present [phone] [address] [place] [address] xxxxxxxxxxx [id number] 2018 Unknown [id number] 2013 Medicare [place] [id number] 2013-Present [phone] [address] [place] [address] O [id number] 2013 Medicare [id number] 2013 Medicare (Managed Care) 1.2. [id number] 2013 Medicare [id number] 1944 Unknown [id number] .627 1944 Unknown [id number] 2.840.1.809486.3.579.2 .732 1944 Unknown [id number] 2.840.1.564826.3.579.2 .594 1944 Unknown [id number] 2.840.1.181464.3.579.2 .594 1944 Unknown [id number] 2.16840.1.127358.3.579.2 .627 Unknown [id number] 2.16840.1.508129.3.579.2 .462 Unknown [id number] 2.16840.1.712940.3.579.2 .462 Unknown [id number] 2.16840.1.158773.3.579.2 .462 Unknown [id number] 2.16840.1.648586.3.579.2 .462 Unknown [id number] 2.16840.1.799440.3.579.2 .462 Unknown [id number] 2.16.840.1.491509.3.579.2 .462 Unknown [id number] 2.16.840.1.117347.3.579.2 .462 Unknown [id number] 2.16.840.1.828130.3.579.2 .462 Unknown [id number] 2.16.840.1.092908.3.579.2 .462 Unknown [id number] 2.16.840.1.109096.3.579.2 .462 Unknown [id number] 2.16.840.1.471355.3.579.2 .462 Unknown [id number] 2.16.840.1.898694.3.579.2 .462 Unknown [id number] 2.16.840.1.732380.3.579.2 .462 Social History Date Type Detail Facility Start: 01-09-2019 End: 08-02-2024 Tobacco smoking status AKIS Never smoker [facility] Start: 01-09-2019 End: 11-25-2022 Alcohol intake Never [facility] Work Phone: Start: 12-24-2018 History SDOH Alcohol Frequency 1 [place] Start: 1945 Sex Assigned At Not on file [place] Start: 10-16-2019 Alcohol intake Lifetime non-d hortencia (finding) [place] Exposure to SARS-CoV -2 (event) Unable to assess [place] Start: 05-18-2021 End: 06-26-2024 Alcohol intake Current non-drinker of alcohol (finding) [facility] Start: 11-13-2021 End: 03-02-2022 Exposure to SARS-CoV-2 (event) Not sure [facility] Start: 02-02-2011 End: 03-02-2022 Tobacco use and exposure Smokeless tobacco non-user [facility] Start: 11-25-2022 End: 11-28-2023 History of Social function [facility] Work Phone: Adult Depression Screening Assessment 0 [facility] Work Phone: Start: 06-22-2005 End: 08-02-2024 Sex Female (finding) [facility] Start: 1945 Sex Assigned At Female [facility] Sexual Orientation [facility] Medical Equipment Procedure Code Equipment Code Equipment Original Text Equipment Identifier Dates [id number], [id number], [id number] Start: 11-30-2020 End: 04-08-2023 Comment on above: [...] Facility 09-09-2024 Functional Status Room check performed [facility] 09-09-2024 Functional Status [facility] 09-09-2024 Functional Status Skin Care Prev entative Intervention(s) heel(s)s elevated [facility] 09-08-2024 [facility] 09-06-2024 Functional Status 11pm-7am [facility] 09-06-2024 Functional Status Antiembolism S tocking On/Re-applied bilateral knee high [facility] 09-05-2024 Functional Status Oral Care Maximum wilfred tance [facility] 09-05-2024 [facility] 09-05-2024 Functional Status Done [facility] 09-04-2024 [facility] 09-04-2024 [facility] 09-03-2024 Functional Status NPO Status Maintained A [facility] 09-03-2024 Functional Status None [facility] 09-03-2024 Functional Status [facility] 08-29-2024 Functional Status [facility] 08-29-2024 Functional Status [facility] 08-27-2024 Functional Status Orthotics, Dev ice Worn Per Schedule Yes [facility] 08-27-2024 Functional Status [facility] 08-26-2024 Functional Status [facility] 08-23-2024 Functional Status [facility] 08-23-2024 Functional Status Breakfast Percent 25 [facility] 08-20-2024 Functional Status [facility] 08-19-2024 Functional Status [facility] 08-16-2024 Functional Status Single level h ome, basement laundry [facility] 08-16-2024 Functional Status Outside Stairs Rail Rail on left going up [facility] 08-15-2024 Functional Status Sensory Defici ts Speech deficit [facility] 10-14-2014 Are you deaf, or do you have serious difficulty hearing No [facility] 10-14-2014 Are you blind, or do you have serious difficulty seeing, even when wearing glasses No [facility] 10-14-2014 Do you have serious difficulty walking or climbing stairs No [facility] 10-14-2014 Do you have difficul ty dressing or bathing No [facility] 10-14-2014 Because of a physica l, mental, or emotional condition, do you have difficulty doing errands alone such as visiting a physician's office or shopping No [facility] Mental Status Date Assessment Result Facility 09-09-2024 Mental Status Does not interact [facility] 09-08-2024 Mental Status [facility] 09-08-2024 Mental Status [facility] 08-02-2024 Cognitive function Awake;Alert;F ollows Commands [facility] Work Phone: 10-14-2014 Because of a physica l, mental, or emotional condition, do you have serious difficulty concentrating, remembering, or making decisions No [facility] Clinical Notes 11-03-2020 to 09-09-2024 Note Date [...] KAMERON CARUSO MD When:Within 3-7 days Where:[address] [place] [address]- Additional Information: Please schedule follow up PCP appointment for after discharge from SNF, Bring discharge instructions with you Follow Up with RIMMA POWERS MD When:10/08/2024 04:00 PM EDT Where:[facility] ([address], [place]) Additional Information: Neurosurgeon The Following Activity and [...] standard right Seat cushion, 99 month(s), Tyler [phone], 09/02/24 8:22:00 EDT Transfer of Care Wound [...] 08/04/2017 Document Revised: 05/04/2018 Document Reviewed: 08/04/2017 [employer] Patient Education 2020 [employer] Additional Information VACCINATE! IT SAVES LIVES! Members of the community who have not yet received the COVID-19 vaccine and would like to receive it can visit one of [facility] vaccine clinics. There are many vaccine clinic locations within the [facility]. For locations and available times, please visit [email or web address] It is important to note that some COVID mobile vaccine clinics are held outdoors and may be canceled in rainy or stormy conditions. To learn more about pediatric vaccinations (ages 5-11), we invite you to visit the [facility] webpage. [email or web address]/pages [email or web address]-Frequently-A sked-[email or web address].html To learn more about the COVID-19 vaccine, we invite you to visit the CDC website for a list of frequently asked questions.https://www.cdc.gov/woodard virus/2019-ncov/vaccines/faq.html [facility] Patient Portal Access Instructions: Stay connected with your healthcare team and access your personal medical information anytime with the [facility] Patient Portal. Please follow the directions below to create your [facility] account: 1.Access the email account you provided upon registration to the hospital/physician office.2.Look for an invitation email from [facility].3.Open the email and access the invitation link: Accept Invitation to [facility].4.Fill in the required richards to create your account. To access your account, visit [employer]Chart. Click the blue button labeled "Access Patient [...] you will allow to register on the [facility] Patient Portal for access to your information. You can also access the [facility] Patient Portal on the [facility] dahlia. Simply click on "Patient Portal" and then log into your account. If you would like to receive a full copy of your medical records, please contact the [facility] Medical Records Department by calling [phone], Monday through Monday between 8 a.m. and [...] Call your local pharmacy or go to [email or web address] to find one close to you.3.Make use of household items: Use cat litter or old coffee grounds to dispose medications if other options are not available. Mix your drugs with these household products, seal them in an airtight container and throw it into the garbage. Call [facility]: [phone] to be sure your drugs can be [...] aware that I should contact my doctor. 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/Dubbing Machine Operator Signature: ___ Date/Time: Relationship to Patient: [...] KAMERON CARUSO MD When:Within 3-7 days Where:[address] [place] [address]- Additional Information: Please schedule follow up PCP appointment for after discharge from SNF, Bring discharge instructions with you Follow Up with RIMAM POWERS MD When:10/08/2024 04:00 PM EDT Where:[facility] ([address], [place]) Additional Information: Neurosurgeon The Following Activity and [...] standard right Seat cushion, 99 month(s), Tyler [id number], 09/02/24 8:22:00 EDT Transfer of Care Wound [...] 08/04/2017 Document Revised: 05/04/2018 Document Reviewed: 08/04/2017 [employer] Patient Education 2020 [employer]. Additional Information VACCINATE! IT SAVES LIVES! Members of the community who have not yet received the COVID-19 vaccine and would like to receive it can visit one of [facility] vaccine clinics. There are many vaccine clinic locations within the [facility]. For locations and available times, please visit [email or web address] It is important to note that some COVID mobile vaccine clinics are held outdoors and may be canceled in rainy or stormy conditions. To learn more about pediatric vaccinations (ages 5-11), we invite you to visit the [facility] webpage. [email or web address]/pages [email or web address]-Frequently-A sked-Questions.html To learn more about the COVID-19 vaccine, we invite you to visit the CDC website for a list of frequently asked questions.https://www.cdc.gov/woodard virus/2019-ncov/vaccines/faq.html [facility] Patient Portal Access Instructions: Stay connected with your healthcare team and access your personal medical information anytime with the [facility] Patient Portal. Please follow the directions below to create your [employer] account: 1.Access the email account you provided upon registration to the hospital/physician office.2.Look for an invitation email from [facility].3.Open the email and access the invitation link: Accept Invitation to [facility].4.Fill in the required richards to create your account. To access your account, visit [employer] HoldingsOneChart. Click the blue button labeled "Access Patient [...] you will allow to register on the [facility] Patient Portal for access to your information. You can also access the [facility] Patient Portal on the [facility] dahlia. Simply click on "Patient Portal" and then log into your account. If you would like to receive a full copy of your medical records, please contact the [facility] Medical Records Department by calling [phone], Monday through Monday between 8 a.m. and [...] Call your local pharmacy or go to [email or web address] to find one close to you.3.Make use of household items: Use cat litter or old coffee grounds to dispose medications if other options are not available. Mix your drugs with these household products, seal them in an airtight container and throw it into the garbage. Call [facility]: [phone] to be sure your drugs can be [...] aware that I should contact my doctor. Patient/Dubbing Machine Operator Signature: ___ Date/Time: Relationship to Patient: [...] in discharge valuation. She was admitted to [facility] inpatient rehab unit from [facility] stay 08/02 - 08/15 who has a history of CAD, DM2, atrial fibrillation and hypertension who presented to the ER after noting left-sided weakness and slurred speech. Originally presented to [facility] where CT head was obtained showing [...] self-care assistance needs decision made to request correction facility. Approval is requested. Patient was to [...] Ordered -- 08/15/24 17:18:00 EDT, AMI HEATON APRN-ORGANIC SECTION TECHNICAL LEAD, [facility] per policy Physical Exam Vitals [...] oral tablet)1 tab(s) PEG tube every day. [id number] Microgram PEG tube once a day. metoprolol [...] KAMERON CARUSO MD When:Within 3-7 days Where:[address] [place] [address]- Additional Information: Please schedule follow up PCP appointment for after discharge from SNF, Bring discharge instructions with you Follow Up with RIMMA CIARAMITARO MD When:10/08/2024 04:00 PM EDT Where:[facility] ([address], [place]) Additional Information: Neurosurgeon Follow Up Appointments No qualifying data available. Follow Up Labs/Studies Discharge Labs No Follow-up Labs Discharge Studies No Follow-up Studies Discharge Diet No qualifying data available. Discharge Activity No qualifying data available. Condition on Discharge Stable Discharge Disposition alf facility Information Provided To Patient and family Time Spent Greater than 35 minutes Digitally Signed by SILVINO HA DO on 09/09/2024 01:46 PM [facility] 09-09-2024 Nurse Progress note Nursing GG Entered On: 09/09/2024 10:55 EDT Performed On: 09/09/2024 10:55 EDT by Abigail Rodas RN Nursing GG's OT GG Grid Eating : Not Completed Abigail Rodas RN - 09/09/2024 10:55 EDT Digitally Signed by Abigail Rodas RN on 09/09/2024 10:55 AM Tyler Garcia 09-08-2024 Nurse Progress note Nursing GG Entered On: 09/08/2024 17:39 EDT Performed On: 09/08/2024 17:39 EDT by Rob Alarcon RN Nursing GG's OT GG Grid Eating : Not Completed Oral Hygiene : Not Completed Toilet Hygiene : Substantial/Maximal Assistance Toilet Transfer : Substantial/Maximal Assistance Rob Alarcon RN - 09/08/2024 17:39 EDT Digitally Signed by Rob Alarcon RN on 09/08/2024 05:39 PM Tyler Garcia 09-08-2024 Nurse Progress note Pt had 250ml residual, 12:30pm bolus was held! Digitally Signed by Rob Alarcon RN on 09/08/2024 12:47 PM Tyler Garcia 09-06-2024 Physical medicine and rehab Progress note [...] and slurred speech. She originally presented to [facility] with CT of the head was obtained showed no acute hemorrhage or large territory stroke. CTA showed mid right M1 occlusion however patient was not a TNK candidate. She [facility]. CT of head showed acute right basal ganglia hemorrhage with surrounding mass effect and midline shift. On 08/02 underwent thrombectomy with NSGY with AFBIAN ICI TB revascularization. Postoperatively she did fail [...] 80 mg 1 tab(s), PEG, Daily balsam Mode-castor oil topical 87 mg-788 mg/g oint 60g [...] Rate64(SEP 05 16:46)64(SEP 05 16:46)85(SEP 05 09:40) HLV279(SEP 05 16:36)138(SEP 05 16:36)H 158(SEP 05 09:52) [...] 08/04/2017 Document Revised: 05/04/2018 Document Reviewed: 08/04/2017 [employer] Patient Education 2020 [employer] Follow Up Care 08/15/2024 08:51:25 With:RIMMA POWERS MD Address: [facility] ([address], [place]) When:10/08/2024 16:00:00 Comments:Neurosurgeon With:JONNIE BANSAL MD Address: [facility] When: Unknown Comments:GI, No appointment needed until PEG is ready to be removed or concerns arise With:KAMERON CARUSO MD Address: [address] [place] [id number]- When:3-7 days Comments:Please schedule follow up PCP [...] less than 3 seconds. Ongoing hemiparesis VITALS SzfobpZsdzOJRpamzHAOnS3ILK3BzanNt(kg ) 09/05 09:5236.3--384820MF 09/05 09:40----85----RA 09/04 23:3236.6--479197UZ 09/04 21:2436.5--815815ZY 09/04 16:01----72----RA 24 Hr Tmax: 36.6 at [...] None Problems (6) CVA (cerebral vascular accident) (280533675) Diabetes mellitus (646819376) Dysphagia (64148270) Hyperlipidemia (52865685) Hypertension (3309946705) Osteoarthritis (5891709841) ASSESSMENT/PLAN: Right basal ganglia hemorrhage, status post thrombectomy with revascularization follow-up appointment with neurosurgery on 10/08. Continue work with physical and Occupational Therapy with goal to return home at discharge. reports that referrals have been sent to correction facilities yesterday. Currently has 4 options in [...] in the presence of Catherine Newman APRN ICatherine APRN, personally performed the services described in this documentation, as scribed byDestiny RN in my presence and it is both accurate and complete. Digitally Signed by CATHERINE NEWMAN on 09/05/2024 04:55 PM Tyler Radha 09-05-2024 Physical medicine and rehab Progress note [...] area Neuro: Left upper extremity hemiparesis VITALS KufhpgDeieFZXvfbkMUAyP3ULZ4JdtzUl(kg ) 09/04 23:3236.6--029952UD 09/04 21:2436.5--700026ZO 09/04 16:01----72----RA 09/04 12:10--------97RA 09/04 10:5435.9--566874QB 24 Hr Tmax: 36.6 at 09/04 23:32 [...] SBP (mmHg) < 110, 1st dose location: [facility], 1, 08/15/24 17:09:00 EDT Active PRN [...] 2 minutes, REPEAT x1., 1st dose location: [facility], 0, 08/15/24 1... glucose (Dextrose 50% [...] None Problems (6) CVA (cerebral vascular accident) (335440794) Diabetes mellitus (815751923) Dysphagia (11661010) Hyperlipidemia (54733097) Hypertension (3218632986) Osteoarthritis (5040872564) ASSESSMENT/PLAN: Acute right basal ganglia hemorrhage with [...] and in the presence of Dr. Hutton. IDr. Hutton, personally performed the services described in this documentation, as scribed byJhonatan RN in my presence and it is both accurate and complete. Digitally Signed by NANDO HUTTON DO on 09/05/2024 10:12 AM Tyler [facility] 09-04-2024 Physical medicine and rehab Progress note [...] and slurred speech. She originally presented to [facility] with CT of the head was obtained showed no acute hemorrhage or large territory stroke. CTA showed mid right M1 occlusion however patient was not a TNK candidate. [facility] management. CT of head [...] 80 mg, 1 tab(s), PEG, Daily. balsam Mode-castor oil topical: 1 dahlia, Topical, qHS. docusate: [...] Rate64(SEP 03 15:52)64(SEP 03 15:52)90(SEP 03 08:28) WCX101(SEP 04 05:38)112(SEP 04 05:38)127(SEP 03 08:00) DBP70(SEP [...] in the presence of Dr. Dae PALMER. IDr. Dae DO, personally performed the services described in this documentation, as scribed byDestiny RN in my presence and it is both accurate and complete. Digitally Signed by SILVINO HA DO on 09/04/2024 11:55 AM Tyler Warnern 09-04-2024 Note Subjective Patient states she is [...] area Neuro: Left upper extremity hemiparesis VITALS RzsuqlSlqcEFVpxygJVVvW0IKO6EmmxAn(kg ) 09/03 21:4136.4--596690KS 04/22 15:52----64----RA 09/03 08:46 09/03 08:28----90---- 09/03 08:0036.4--801695QJ 24 Hr Tmax: 36.4 at 09/03 21:41 [...] SBP (mmHg) < 110, 1st dose location: [facility], , 08/15/24 17:09:00 EDT oxybutynin (oxybutynin 5 [...] 2 minutes, REPEAT x1., 1st dose location: [facility], 0, 08/15/24 1... glucose (Dextrose 50% [...] None Problems (6) CVA (cerebral vascular accident) (142575017) Diabetes mellitus (757623542) Dysphagia (47567231) Hyperlipidemia (25928795) Hypertension (0841982158) Osteoarthritis (0952190237) ASSESSMENT/PLAN: Acute right basal ganglia hemorrhage with [...] typographical errors. Anjelica Roe RN, am scribing for , and [...] area Neuro: Left upper extremity hemiparesis VITALS KpukevTqwhCKMqdqxCXEsA7ICI5EufaSv(kg ) 09/03 00:2636.3--262690JF 09/02 21:5136.2--028301BE 09/02 16:56----88--98RA 09/02 10:40 RA 09/02 09:0936.0--552325IP 24 Hr Tmax: 37.0 at 09/02 05:55 [...] tab(s), PEG, Daily, 08/15/24 17:09:00 EDT balsam Mode-castor oil topical (Venelex 788 mg-87 mg/g topical [...] SBP (mmHg) < 110, 1st dose location: [facility], , 08/15/24 17:09:00 EDT oxybutynin (oxybutynin 5 [...] 2 minutes, REPEAT x1., 1st dose location: [facility], 0, 08/15/24 1... glucose (Dextrose 50% [...] None Problems (6) CVA (cerebral vascular accident) (364777297) Diabetes mellitus (813001164) Dysphagia (48769503) Hyperlipidemia (67609404) Hypertension (9775098913) Osteoarthritis (2646733611) ASSESSMENT/PLAN: Acute right basal ganglia hemorrhage with [...] DO on 09/05/2024 08:57 AM Tyler Garcia 09-02-2024 Note Exam Date Time Procedure Performing Provider Status 09/02/24 2:[address] Head or Brain w/o Contrast Brenda MCCLELLAN MD; Auth (Verified) [id number] ORIGINAL HISTORY: Lethargy COMPARISON: No TECHNIQUE: Routine [...] 09/02/2024 3:10:44 PM Ordering Provider: SILVINO Scott [id number] Telephone encounter Note* Telephone Encounter - Fouzia Miller LPN - 08/30/2024 10:09 AM EDT Marya with Tyler [facility] notified. [facility]04-18-2025 Miscellaneous Notes* Telephone Encounter - Fouzia Miller LPN - 08/30/2024 10:09 AM EDT Marya with Tyler [facility] notified. * Telephone Encounter - Mj Glover APRN.CNP - 08/30/2024 9:19 AM EDT Please let know that Dr. Caruso's team will follow orders. Okay to proceed. Mj Glovre APRN.CNP * Telephone Encounter - Jaiden Paulino RN - 08/30/2024 9:07 AM EDT [facility] reports patient was in [facility] with dx: stroke, and [facility]. Pt will be discharged from [facility] on 09/07/24 to home with [facility] SN PT OT ST & HHAide. Asking if pcp agreeable to follow for HHC. Please phone Marya with verbal: [phone] [facility] Telephone encounter Note * Telephone Encounter - Mj Glover APRN.CNP - 08/30/2024 9:19 AM EDT Please let know that Dr. Caruso's team will follow HH orders. Okay to proceed. Mj Glover APRN.GARRETT [facility]04-18-2025 Telephone encounter Note* Telephone Encounter - Jaiden Paulino RN - 08/30/2024 9:07 AM EDT [facility] reports patient was in [facility] with dx: stroke, and transferred to [facility]. Pt will be discharged from [facility] on 09/07/24 to home with [facility] SN PT OT ST & [facility]HAide. Asking if pcp agreeable to follow for HHC. Please phone Marya with verbal: [phone] [facility]04-14-2025 Note REFERRING PHYSICIAN: Silvino Ha DO. CONSULTING PSYCHOLOGIST: Matthew Gibson, PhD. REASON FOR REFERRAL: Neuropsychological exam. HISTORY OF PRESENT ILLNESS: Ms. Acuna is a 78-year-old right-handed white female admitted to [facility] from [facility] on 08/15/2024 after developing left-sided weakness and slurred speech. Initially seen at [facility] where brain CT was negative.CTA then [...] mild concussions suffered after a career in [employer]. No residual deficits reported. No other DEICER TESTER injuries or illnesses. MENTAL HEALTH HISTORY: No [...] of NPO. and Mrs. Acuna live in [place]. 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 She has a high school diploma from her hometown in [place], [place]. TEST RESULTS: I used the Cognistat, [...] be determined. MATTHEW GIBSON, PhD GM/NTS JOB#: [id number] DICTATION ID#: [id number] Digitally Signed by MATTHEW GIBSON PhD on 08/27/2024 08:21 AM Tyler [id number] Note* Exam Date Time Procedure Performing Provider Status 08/25/24 1:46 PM XR Hand and Wrist 6 Views Left ROSANNE Buck Chang DO; Auth (Verified) [id number] ORIGINAL EXAMINATION: 3 XRAY VIEWS OF THE [...] 08/25/2024 2:27:26 PM Ordering Provider: JACKLYN Scott [id number] Note* Exam Date Time Procedure Performing Provider Status 08/25/24 1:45 PM XR Shoulder Minimum 2 Views Left JAMAR DUNNE DO; Auth (Verified) [id number] ORIGINAL EXAMINATION: TWO XRAY VIEWS OF THE [...] Date: 08/25/2024 2:26:45 PM Ordering Provider: JACKLYN Scott [id number] Note* Exam Date Time Procedure Performing Provider Status 08/25/24 1:43 PM XR Humerus Minimum 2 Views Left JAMAR DUNNE DO; Auth (Verified) [id number] ORIGINAL EXAMINATION: TWO XRAY VIEWS OF THE [...] 1 View Contributor_system, FUJ I; Auth (Verified) [id number] ORIGINAL EXAMINATION: ONE XRAY VIEW OF THE [...] Date: 08/18/2024 3:14:15 PM Ordering Provider: NANDO Garcia04-04-2025 Evaluation + Plan noteExtracted from: Title:Clinical Document Author:EZEQUIEL HUSTON RN-ORGANIC SECTION TECHNICAL LEAD Date:08/16/24 Acute Inpatient Rehab Histor y and Physical Date of Service: 08/16/2024 Date of Admission: 08/15/2024 Attending Physician: Dr. Ha [employer] 1.1 left body involvement, right brain stroke Etiologic Diagnosis Hemorrhagic infarct involving right basal ganglia, mass effect with effacement of right lateral ventricle, tiny infarct in right cerebellum History of Present Illness 78-year-old female noted to home in inpatient rehab from [facility] stay 08/02 - 08/15 who is past medical history of coronary artery disease, diabetes mellitus type 2, atrial relation, hypertension, osteoarthritis, and hyperlipidemia who presented to the emergency room with noted left-sided weakness and slurred speech. She originally presented to [facility] with CT of the head was obtained showed no acute hemorrhage or large territory stroke. CTA showed mid right M1 occlusion however patient was not a TNK candidate. [facility]. CT of head [...] feedings. Patient deemed medically stable transferred to [facility] for physical and occupational [...] with spouse, first- floor set up. 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 Safe place to go: Yes. Lives [...] Rate80(AUG 15 20:06)80(AUG 15 20:06)80(AUG 15 20:06) XCC228(AUG 16 00:03)128(AUG 16 00:03)140(AUG 15 17:47) DBP76(AUG 16 00:03)76(AUG 16 00:03)80(AUG 15 17:47) 36hr Labs 08/15 1805 Blood Glucose, Fepolfced609M Blood Glucose, Ttnbqegfg122B Blood Glucose TSee Flowsheet Assessment/Plan Debility and [...] and it is both accurate and complete. [facility] 04-04-2025 Physical medicine and rehab Consult note INPATIENT REHAB MEDICAL CONSULT DATE OF ADMISSION: 08/16/2024 CC: Acute right basal hemorrhage HISTORY OF PRESENT ILLNESS: This is a 78-year-old female admitted to [facility] unit from [facility] stay 08/02 - 08/15 who has a history of CAD, DM2, atrial fibrillation and hypertension who presented to the ER after notingleft-sided weakness and slurred speech. Originally presented to [facility] where CT head was obtained showing [...] was deemed medically stable and transferred to [facility] unit for physical and occasional [...] Rate80(AUG 15 20:06)80(AUG 15 20:06)80(AUG 15 20:06) WAE515(AUG 16 00:03)128(AUG 16 00:03)140(AUG 15 17:47) DBP76(AUG [...] Hospital labs and diagnostics reviewed. 36hr Labs 04/03 1805 Blood Glucose, Dibshysbq580V Blood Glucose, Ibmqcphrd771L Blood Glucose TSee Flowsheet ASSESSMENT AND PLAN: [...] will follow during acute rehabilitation stay at [facility] with the goal of [...] by CATHERINE NEWMAN on 08/17/2024 04:53 PM Tyler [id number] Physical medicine and rehab History and physical [...] noted to home in inpatient rehab from [facility] stay 08/02 -08/15 who is past medical history of coronary artery disease, diabetes mellitus type 2, atrial relation, hypertension, osteoarthritis, and hyperlipidemia who presented to the emergency room with noted left-sided weakness and slurred speech. She originally presented to [facility] with CT of the head was obtained showed no acute hemorrhage or large territory stroke. CTA showed mid right M1 occlusion however patient was not a TNK candidate. [facility] showed [...] feedings. Patient deemed medically stable transferred to [facility] for physical and occupational [...] with spouse, first- floor set up. 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 Safe place to go: Yes. Lives [...] Rate80(AUG 15 20:06)80(AUG 15 20:06)80(AUG 15 20:06) VZP450(AUG 16 00:03)128(AUG 16 00:03)140(AUG 15 17:47) DBP76(AUG 16 00:03)76(AUG 16 00:03)80(AUG 15 17:47) 36hr Labs 08/15 1805 Blood Glucose, Uzzaiifwv622P Blood Glucose, Mmxnmdsqd091I Blood Glucose TSee Flowsheet Assessment/Plan Debility and [...] by EZEQUIEL HUSTON on 08/22/2024 05:17 AM Tyler [id number] Miscellaneous Notes* Nursing Notes - Robson Steel [...] pacing over x3-5 sessions Outcome: Ongoing Problem: REVIEW MANAGER - Cognition Goal: Orientation Log - Patient [...] pacing over x3-5 sessions Outcome: Ongoing Problem: REVIEW MANAGER - Cognition Goal: Orientation Log - Patient [...] * Plan of Care - Katie Ramos, PT - 08/12/2024 2:23 PM EDT Problem: [...] for buried bumper syndrome. - If used termite control representative, initial PEG should be changed in 6-12 months depending on tube condition. - No plans for repeat outpatient EGD at this time based on clinical status Jonnie Mccabe MD Division of Gastroenterology, Hepatology, and Nutrition Clinical Fellow PGY-4 Pager: [phone] * Plan of Care - Manisha Cheema [...] ago or what the specific medication was. DaughterKeagan [phone] would be able to answer questions. Catherine [...] 08/07/2024 5:00 PM EDT On admission to 0, from another [facility] inpatient unit a dual RN initial assessment of skin condition was performed by Shaila Srtinger RN and Raysa Martínez RN. Skin Assessment: [...] Progressing * Plan of Care - Rachell Blake, OT - 08/06/2024 10:06 AM EDT Problem: [...] oropharyngeal swallow function to most appropriately guide REVIEW MANAGER plan of care Outcome: Met Goal: Bolus [...] readiness for diet advancement Outcome: Met Problem: REVIEW MANAGER - Cognition Goal: Orientation Log - Patient [...] better assess deficits and most appropriately guide REVIEW MANAGER plan of care Outcome: Met Goal: Attention: [...] of Care: 1. Diet: NPO. Advancement per team/REVIEW MANAGER recommendation 2. Ordered TF: Glucerna 1.5 @ goal rate 55mL/h x 22 hours (holding for synthroid) -Free water per team, suggest minimum of 30ml q 4hr for tube patency 3. Monitor TF/PO intake, bowel function, skin integrity, weight change, lab values. 4. RD to follow up * Plan of Care - Florinda Velasquez, PT - 08/04/2024 1:36 PM EDT Problem: [...] readiness for diet advancement Outcome: Ongoing Problem: REVIEW MANAGER - Cognition Goal: Orientation Log - Patient [...] better assess deficits and most appropriately guide REVIEW MANAGER plan of care Outcome: Ongoing * Nursing Notes - Aniyah Torre RN - 08/02/2024 6:13 PM EDT On admission to [facility] from [place] a dual [...] change from previous assessment. Pt transferred to C1043 via cart accompanied by Denae ENRIQUEZ. T [...] under emergency consent. SURGEON(S): Prema Ramos MD PHARMACY ASSOCIATE(S): None ANESTHESIA: Monitored anesthesia care DESCRIPTION OF [...] Freeclimb 70/Serjio 7 was advanced over a [employer] microcatheter which was advanced over a synchro [...] - 08/02/2024 3:26 PM EDT Lindsay Acuna ([id number]) PRE OPERATIVE DIAGNOSIS Cerebral infarction due to [...] - Primary ANESTHESIOLOGIST Anesthesiologist: Tameka Ruth MD TURPENTINE FARMER: Bebo Barboza APRN-TURPENTINE FARMER SURGICAL STAFF Headline Writer: Rachell Ruffin RN Biology Lecturer: Paulina Muñiz; Radha Morales COMPLICATIONS None ESTIMATED BLOOD LOSS Minimal SPECIMENS No specimen sent * No specimens in log * Prema Ramos MD August 02, 2024 3:26 PM [facility] History of Present illness Narrative* OWEN Benavides - 08/15/2024 9:01 AM EDT Care Management Discharge Note Selected Continued Care - Admitted Since 08/02/2024 Destination Coordination complete. Service Provider Services Address Phone Fax Patient Preferred [address] [address] -- -- Internal Comment last updated by OWEN Benavides 08/15/2024 0901 Report fax: [phone] Transport Request Mode of Transfer: [facility] Name of Discharge Transport Company: [employer] Discharge Transport ETA: 08/15/2024 @ 1030 Patient medically stable for discharge per physician/medical team. Pt has neurology appointment scheduled. Pt/ to schedule appointment with PCP. 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 BULMARO Allen Gamer * OWEN Benavides - 08/14/2024 3:17 PM EDT Placement Plan Expected Discharge Date: 08/15/2024 Referred Level of Care: IPR Current Referrals and Status 1. Tyler Garcia-rosie IPR obtained precertification for Pt starting tomorrow. Pt is set-up to leave via ambulance tomorrow at 1030. CM updated Pt's by phone. IPR will provide CM with the best phone and fax numbersfor RN report tomorrow morning. BULMARO Allen Gamer * Marybeth Ayoub - 08/14/2024 2:51 PM EDT Care Management Progress Note Transportation for discharge arranged Mode of Transfer: (P) S Name of Discharge Transport Company: (P) [employer] Discharge Transport ETA: (P) 08/15/2024 @ 1030 Pick-up from [facility] 1032/A Destination Tyler ALVARADO [address] [facility] [address] OWEN Morrell Gamer [employer] [phone] * Jazzy Aguiar - 08/14/2024 9:47 AM [...] position Mobility Assessment/Intervention: Supine to Sit Mobility [place] Level: Supine->Sit: moderate assist (50% patient effort) Physical Assist: Supine->Sit: 2 person assist Bed Features/Set-up: Supine->Sit: Head of bed elevated, Use of bed rail Skilled Rationale: Verbal cues, Tactile cues, Hand placement, Positioning, Technique of activity Skilled Intervention/Details: Supine->Sit: Cues for technique of transfer and pt needing increased assistance for managing legs and trunk to EOB positioning Transfer Assessment/Intervention: Sit to Stand Transfer [place] Level: Sit->Stand: moderate assist (50% patient effort) [...] hand held support Stand to Sit Transfer [place] Level: Stand->Sit: moderate assist (50% patient effort) Physical Assist: Stand->Sit: 2 person assist Assistive Device: Stand->Sit: gait belt, hand held assist Skilled Rationale: Verbal cues, Tactile cues, Hand placement, Positioning, Controlled descent for sitting Skilled Intervention/Details: Stand->Sit: Cues for positioning with BSC and recliner, pt provided bilat hand held support and needing increased support for managing a controlled descent Bed-Chair Transfer [place] Level: Bed<->Chair: maximum assist (25% patient effort) [...] managing L side during transfer Toilet Transfer [place] Level: Toilet: moderate assist (50% patient effort) [...] upright gaze when standing Outcome Score(s): CURRENT -[facility] Daily Activity Inpatient Short Form Putting on/Taking Off Lower Body Clothin - Total Assistance Bathin - A Lot of Assistance Toiletin - Total Assistance Putting on/Taking Off Upper Body Clothin - A Little Assistance Groomin - A Little Assistance Eatin - Total Assistance CURRENT AM-[facility] Activity Raw Score: 11 CURRENT AM-PAC Activity [...] person, Oriented to place, Oriented to situation ("[place]" "hospital" "May" "2024" "stroke") Following Commands: Follows [...] blocking Mobility Assessment/Intervention: Supine to Sit Mobility [place] Level: Supine->Sit: moderate assist (50% patient effort) [...] sitting) Transfer Assessment/Intervention: Sit to Stand Transfer [place] Level: Sit->Stand: moderate assist (50% patient effort) Physical Assist: Sit->Stand: 2 person assist Assistive Device: Sit->Stand: gait belt Skilled Rationale: Arm in arm, Patellar block, Ischial assist, Facilitate anterior shift, Full extension to upright positioning/posture, Finding/maintaining midline positioning Skilled Intervention/Details: Sit->Stand: repeat cues to avoid significant L lean with improvement last standing. x1 from EOB, x2 from BSC Stand to Sit Transfer [place] Level: Stand->Sit: moderate assist (50% patient effort) Physical Assist: Stand->Sit: 2 person assist Assistive Device: Stand->Sit: gait belt Skilled Rationale: Arm in arm, Controlled descent for sitting Skilled Intervention/Details: Stand->Sit: last trial assisted R hand to recliner arm rest and ongoing cues for wt shift to R Bed-Chair Transfer [place] Level: Bed<->Chair: maximum assist (25% patient effort) [...] Mobility Assessment/Intervention: Stairs Assessment/Intervention: Outcome Score(s): CURRENT [facility] Basic Mobility Inpatient Short Form Turning [...] with a railin - Total Assistance CURRENT [facility] Mobility Raw Score: 8 CURRENT [facility] Mobility Functional Limitation: 86.62% Impaired in Basic Mobility Interventions: Intervention 1 Intervention Name: NMR supine and sitting Details: education L attention [...] 10 Treating Therapist: Shaina Rosales PT, DPT [id number] 08/14/2024 Additional Details: PT Co-Eval/Treatment Information Co-evaluation/co-treatment [...] Physical Therapy Discharge Summary. * Tanja Cason, REVIEW MANAGER - 08/14/2024 8:37 AM EDT Acute Care [...] on the below outcome measures/assessment score(s) and REVIEW MANAGER clinicaljudgment, discharge destination recommendation is: IPR Barriers to discharge home: 1:1 assist needed for IADL's including medication management and finances Supporting factors for discharge setting: Impaired swallow function limiting nutritional status andsafety with oral intake, Impaired cognitive skills limiting safety/insight Acute REVIEW MANAGER Outcomes Tracking Communicate basic wants and needs?: [...] independent carry over. Strong family support. Ongoing REVIEW MANAGER s indicated. Subjective information: Alert, present. SO referenced his notes from yesterday and reportedcarry over of exercises yesterday. Patient with zero recall Pain: Nonverbal indicator not present Precautions: Patient Safety Communication Prior to Visit: Nursing Lines/Tubes/Drains (Rehab Status): Telemetry, Tube feed Existing Precautions/Restrictions: fall Respiratory Status: O2 Sat (%): 96 % (08/14 0711) O2 Device: room air (08/14 0947) Acute REVIEW MANAGER Goals Plan of Care by Tanja Cason REVIEW MANAGER at 08/14/2024 2:42 PM Version 1 of [...] RoM to achieve technique. Outcome: Ongoing Problem: REVIEW MANAGER - Cognition Goal: Orientation Log - Patient [...] next session: 08/14 - ongoing exercises, education REVIEW MANAGER Outcomes: FOIS 2 Speech Language Pathologist: RIKI [...] of session: none altered Needs in reach. REVIEW MANAGER Evaluation and Treatment Time Speech Therapy - Individual 40716: 14 Swallowing Dysfunction Treatment 96367: 14 Upon discontinuation of Acute Care Speech [...] on the below outcome measures/assessment score(s) and REVIEW MANAGER clinicaljudgment, discharge destination recommendation is: Inpatient Rehab Facility Barriers to discharge home: 1:1 assist needed for IADL's including medication management and finances Supporting factors for discharge setting: Impaired swallow function limiting nutritional status andsafety with oral intake, Impaired cognitive skills limiting safety/insight Acute REVIEW MANAGER Outcomes Tracking Communicate basic wants and needs?: [...] O2 Device: room air (08/13 710) Acute REVIEW MANAGER Goals Plan of Care by Tanja Cason, REVIEW MANAGER at 08/13/2024 11:10 AM Version 1 of [...] 10 reps this session. Outcome: Ongoing Problem: REVIEW MANAGER - Cognition Goal: Orientation Log - Patient [...] considerations: Cognition Patient Instruction/Education comments: Role of REVIEW MANAGER, presence and normalized frustration with cognitive-communicative impairments. Focused on memory this date and that patient does not recall education so perseverative questions are normal. Reviewed intermittent silent aspiration from MBS last weekand ongoing signs of dysphagia this session, will plan to coordinate timing for repeat instrumentalwith care team Plan for next session: 08/13 -fair REVIEW MANAGER Outcomes: FOIS 2 Speech Language Pathologist: RIKI Blancas Time In: 824 Time Out: 849 Total Visit Time: 25 minutes Total Treatment Time (skilled, billable minutes): 25 minutes Non-billable assistance during session: na Assisted by during session: na PPE used during patient interaction: gloves Patient location/status at end of session: bed with head of bed elevated Patient alarms at end of session: none altered Needs in reach. REVIEW MANAGER Evaluation and Treatment Time Speech Therapy - Individual 47103: 12 Swallowing Dysfunction Treatment 05280: 13 Upon discontinuation of Acute Care Speech Therapy Services or patient discharge from the hospital this note represents the current Speech Therapy Discharge Summary * OWEN Benavides - 08/12/2024 3:21 PM EDT Placement Plan Expected Discharge Date: 08/14/2024 Referred Level of Care: IPR Barriers: Medical Readiness & Precertification Current Referrals and Status 1. [facility]-accepted [facility] started precertification today. BULMARO Allen Gamer * Jazzy Talamantesmandajean-pierre - 08/12/2024 10:46 AM EDT Acute Occupational [...] sinkside Mobility Assessment/Intervention: Supine to Sit Mobility Pra[place] Level: Supine->Sit: moderate assist (50% patient effort) [...] positioning Transfer Assessment/Intervention: Sit to Stand Transfer [place] Level: Sit->Stand: maximum assist (25% patient effort) [...] maintaining upright posture Stand to Sit Transfer [place] Level: Stand->Sit: maximum assist (25% patient effort) Physical Assist: Stand->Sit: 2 person assist Assistive Device: Stand->Sit: gait belt, hand held assist Skilled Rationale: Verbal cues, Tactile cues, Hand placement, Positioning, Controlled descent for sitting Skilled Intervention/Details: Stand->Sit: Cues for positioning with recliner and using BUEs to help with appropriate positoining of hips in chair Bed-Chair Transfer Prairie Level: Bed<->Chair: maximum assist (25% patient effort) Physical Assist: Bed<->Chair: 2 person assist Assistive Device: Bed<->Chair: gait belt Skilled Rationale: Verbal cues, Tactile cues, Hand placement, Positioning, Technique of activity Skilled Intervention/Details: Bed<->Chair: x1 from EOB to recliner on R. Pt needing increasedsupport for managing L side and sequencing steps for appropriate positioning with recliner Outcome Score(s): CURRENT AM-PAC Daily Activity Inpatient Short Form Putting on/Taking Off Lower Body Clothin - Total Assistance Bathin - A Lot of Assistance Toiletin - Total Assistance Putting on/Taking Off Upper Body Clothin - A Lot of Assistance Groomin - A Lot of Assistance Eatin - Total Assistance CURRENT AM-PAC Activity Raw Score: 9 CURRENT AM-PAC Activity Functional Limitation/Modifier: 79.59% Currently Impaired in [...] labs. RD to continue to follow. October Aramnd is a 78 y.o. female with PMH significant for CAD, HTN, HLD, T2DM, Afib (on Eliquis, although patient reports she has not been taking it) who presents with L hemiplegia, slurred speech. LKW 0915 on 08/02, later found down with slurred speech and L hemiplegia. She presented to [facility] and was seen on Telestroke, NIHSS [...] goal TF volume. Pt last assessed by REVIEW MANAGER 08/08 with recommendations for NPO. S/p PEG [...] chips. Will also increase free water flushes. REVIEW MANAGER to see pt tomorrow. Nutrition Focused Physical Exam: Nutrition Focused Physical Exam Completed?: completed Subcutaneous Fat Loss: Orbital Region (Orbital Fat Pads): WDL Cheek Region (Buccal Fat Pads): WDL Upper Arm Region (Triceps): WDL Thoracic and Lumbar Region (Ribs, Lower Back, Midaxillary Line): WDL Muscle Wasting: Edison Region (Temporalis Muscle): deferred (lac over eyebrow) [...] kg (172 lb) 06/26/24 78.9 kg (174 lb)-[facility] 05/31/24 79 kg (174 lb 2.6 oz)-[facility] 11/28/23 80.6 kg (177 lb 9.6 oz)-[facility] 09/29/23 84 kg (185 lb)-[facility] meds reviewed: Scheduled: Reviewed, includes insulin, Synthroid, [...] 4.7 - 5.6 % Final WBC/Hgb/Hct/Plts: 14.32/14.3/45.1/241 (03/31 0343) Lab Results Component Value Date GLUCOSE 160 [...] Needs: Weight Used: 61 kg (IBW) EEN: 7106-6074 kcal/day (25-30 kcal/kg) EPN: 73-92 g/day (1.2-1.5 g/kg) EFN: 1830 mL/day (30 mL/kg) or per primary team Malnutrition Statement: Does the patient meet criteria for malnutrition: No *Based on [employer] Academy and ASPEN Indicators to Diagnose Malnutrition (AAIM) criteria (2012) Tianna Murray RD, LD, [facility] EM[facility] Pager #[phone] * Katie Ramos, PT - 08/12/2024 10:22 [...] standing. Mobility Assessment/Intervention: Supine to Sit Mobility [place] Level: Supine->Sit: moderate assist (50% patient effort) Physical Assist: Supine->Sit: 2 person assist Bed Features/Set-up: Supine->Sit: Head of bed elevated Skilled Rationale: Verbal cues, Tactile cues, Hand placement, Technique of activity Skilled Intervention/Details: Supine->Sit: verbal/tactile cues for instruction on transfer technique and mod A x 2 for LE and trunk management. Transfer Assessment/Intervention: Sit to Stand Transfer [place] Level: Sit->Stand: maximum assist (25% patient effort) Physical Assist: Sit->Stand: 2 person assist Assistive Device: Sit->Stand: gait belt Skilled Rationale: Verbal cues, Tactile cues, Hand placement, Technique of activity Skilled Intervention/Details: Sit->Stand: x2 trials with verbal/tactile cues for instruction on transfer technique, hand placement, and blocking left knee. Bed-Chair Transfer Pra[place] Level: Bed<->Chair: maximum assist (25% patient effort) Physical Assist: Bed<->Chair: 2 person assist Assistive Device: Bed<->Chair: gait belt Skilled Rationale: Verbal cues, Tactile cues, Hand placement, Technique of activity Skilled Intervention/Details: Bed<->Chair: x1 trial from EOB to chair to the right. Verbal/tactile cues for instruction on transfer technqiue, blocking left knee. Outcome Score(s): [facility] Basic Mobility Inpatient Short Form Turning over in bed: 2 - A Lot of Assistance Moving from lying on back to sittin - Total Assistance Moving to and from bed to chair: 1 - Total Assistance Sitting/standing from chair: 1 - Total Assistance Walk in hospital room: 1 - Total Assistance Climbing 3-5 steps with a railin - Total Assistance [facility] Mobility Raw Score: 7 [facility] Mobility Functional Limitation: 92.36% Impaired in [...] Physical Therapy Discharge Summary. * Radha Gr, DIRECTOR PRISON-ORGANIC SECTION TECHNICAL LEAD - 08/11/2024 7:15 AM EDT NEUROVASCULAR STROKE SERVICE Daily Progress Note IDENTIFYING INFORMATION Lindsay Acuna MR# [id number] 08/11/2024 HISTORY OF PRESENT ILLNESS Lindsay Acuna is a 78 y.o. female with PMH significant for CAD, HTN, HLD, T2DM, Afib (on Eliquis, although patient reports she has not been taking it) who presents with L hemiplegia, slurred speech. LKW 0915 on 08/02, later found down with slurred speech and L hemiplegia. She presented to [facility] and was seen on Telestroke, NIHSS [...] 2b revascularization. INTERVAL HISTORY 08/05: Transfer [place] [place]/06: Failed MBS. Increased lopressor. Spouse [...] (home dose), give mag , NPO at [place] for [facility]ABIAN PHYSICAL EXAM Gen: awake, alert [...] today 08/11 -Rate controlled on metoprolol Dysphagia: -REVIEW MANAGER following -NPO, DHT + TF -Failed MBS [...] Lindsay Acuna will likely be discharged to [facility] when medically ready Radha Gr, DIRECTOR PRISON-ORGANIC SECTION TECHNICAL LEAD 08/11/2024 10:17 AM VITAL SIGNS Temp: [97.2 [...] for specific therapeutic recommendations, please see the brim pouncer report of the speech pathologist. Examination performed [...] of the above interview and physical exam on3/30. My comments, based on my personal review of the history and my physical exam are as follows: Agree with history of present illness, past history, family health, personal and social history, review of systems, and review of general medical and neurological examinations as recorded by the PEDIGREE TRACER repeated and confirmed. I have personally reviewed [...] tooth. Blood cx unremarkable. * Radha Gr, JASIEL-ORGANIC SECTION TECHNICAL LEAD - 08/10/2024 7:14 AM EDT NEUROVASCULAR STROKE SERVICE Daily Progress Note IDENTIFYING INFORMATION Lindsay Acuna MR# [id number] 08/10/2024 HISTORY OF PRESENT ILLNESS Lindsay Acuna is a 78 y.o. female with PMH significant for CAD, HTN, HLD, T2DM, Afib (on Eliquis, although patient reports she has not been taking it) who presents with L hemiplegia, slurred speech. LKW 0915 on 08/02, later found down with slurred speech and L hemiplegia. She presented to [facility] and was seen on Telestroke, NIHSS [...] 2b revascularization. INTERVAL HISTORY 08/05: Transfer to [facility] tomorrow 08/06: Failed MBS. Increased lopressor. Spouse [...] as above -Rate controlled on metoprolol Dysphagia: -REVIEW MANAGER following -NPO, DHT + TF -Failed MBS [...] Lindsay Acuna will likely be discharged to [facility] when medically ready Radha Gr, DIRECTOR PRISON-ORGANIC SECTION TECHNICAL LEAD 08/10/2024 7:14 AM VITAL SIGNS Temp: [97.4 [...] for specific therapeutic recommendations, please see the brim pouncer report of the speech pathologist. Examination performed [...] skin and external bumper. - If used termite control representative, PEG should be changed every 3-6 months [...] Hepatology, and Nutrition Clinical Fellow PGY-4 Pager: [phone] For follow up questions regarding this patient 7am to 5pm, contact the IBD consults fellow or DAHLIA on Etopus. [facility]--> Internal Medicine--> Gastroenterology, Hepatology, & Nutrition--> IBD Consult Service Fel Day OR IBD Consult Service DAHLIA Day For urgent/stat calls or new consults 5pm to 7am or all day on the weekend, please page the on-callGI fellow on Etopus. [facility]--> Internal Medicine--> Gastroenterology, Hepatology, & Nutrition--> 1st Call Fel Miriam OR STAT/NEW GI Cons Wknd Day Cosigned by Niru Koch MD at [...] CM for assistance as needed (8:00am-4:30pm) BASH: [phone] Maria: [phone] Johan: [phone] Ross: [phone] For Social Work assistance for the weekend, please contact SW for assistance as needed (8:00am - 4:30pm): BASH: [phone] Maria: [phone] Johan: [phone] Ross: [phone] * PATRIZIA Hernandez - 08/09/2024 8:07 AM EDT NEUROVASCULAR STROKE SERVICE Daily Progress Note IDENTIFYING INFORMATION Lindsay Acuna MR# [id number] 08/09/2024 HISTORY OF PRESENT ILLNESS Lindsay Acuna is a 78 y.o. female with PMH significant for CAD, HTN, HLD, T2DM, Afib (on Eliquis, although patient reports she has not been taking it) who presents with L hemiplegia, slurred speech. LKW 0915 on 08/02, later found down with slurred speech and L hemiplegia. She presented to [facility] and was seen on Telestroke, NIHSS [...] 2b revascularization. INTERVAL HISTORY 08/05: Transfer [place] [facility] tomorrow 08/06: Failed MBS. Increased lopressor. Spouse [...] as above -Rate controlled on metoprolol Dysphagia: -REVIEW MANAGER following -NPO, DHT + TF -Failed MBS [...] Lindsay Acuna will likely be discharged to [facility] when medically ready Radha Gr, DIRECTOR PRISON-ORGANIC SECTION TECHNICAL LEAD 08/09/2024 8:07 AM VITAL SIGNS Temp: [97.3 [...] for specific therapeutic recommendations, please see the brim pouncer report of the speech pathologist. Examination performed [...] on the below outcome measures/assessment score(s) and REVIEW MANAGER clinicaljudgment, discharge destination recommendation is: Inpatient Rehab Facility Acute REVIEW MANAGER Outcomes Tracking Communicate basic wants and needs?: [...] pressions and introduction to effortful swallow exercise. REVIEW MANAGER provided education regarding recommendation of NPO given [...] constraints (transport arrived for pt's CT scan). REVIEW MANAGER will follow as able. Subjective information: Patient upright in chair, at bedside. Agreeable to REVIEW MANAGER session. Pain: General Pain Documentation (Adult, OB, [...] room air Flow (L/min): [3] 3 Acute REVIEW MANAGER Goals Plan of Care by RIKI Penaloza [...] phsyiology, risks of aspiration pneumonia). Educated regarding REVIEW MANAGER role in swallow rehab and future POC Plan for next session: 08/06: cog tx and dysphagia exercises REVIEW MANAGER Outcomes: FOIS: 1 Speech Language Pathologist: RIKI Penaloza Time In: 1310 Time Out: 1330 Total Visit Time: 20 minutes Total Treatment Time (skilled, billable minutes): 20 minutes Non-billable assistance during session: NA Assisted by during session: NA PPE used during patient interaction: gloves Patient location/status at end of session: chair Patient alarms at end of session: none altered Needs in reach. REVIEW MANAGER Evaluation and Treatment Time Swallowing Dysfunction Treatment 55087: 20 Upon discontinuation of Acute Care Speech [...] feedback Mobility Assessment/Intervention: Supine to Sit Mobility [place] Level: Supine->Sit: moderate assist (50% patient effort) Physical Assist: Supine->Sit: 2 person assist Bed Features/Set-up: Supine->Sit: Use of bed rail, Head of bed elevated Skilled Rationale: Sequencing, Verbal cues, Hand placement, Positioning Skilled Intervention/Details: Supine->Sit: increased time/cues Transfer Assessment/Intervention: Sit to Stand Transfer [place] Level: Sit->Stand: moderate assist (50% patient effort) Physical Assist: Sit->Stand: 2 person assist Assistive Device: Sit->Stand: gait belt, hand held assist Skilled Rationale: Positioning, Sequencing, Hand placement, Verbal cues Skilled Intervention/Details: Sit->Stand: Pt educated in sit to stand transfers x 2 attempts, one from EOB and one from chair Bed-Chair Transfer [place] Level: Bed<->Chair: maximum assist (25% patient effort) [...] Mobility Assessment/Intervention: Stairs Assessment/Intervention: Outcome Score(s): [facility] Basic Mobility Inpatient Short Form Turning [...] with a railin - Total Assistance [facility] Mobility Raw Score: 8 [facility] Mobility Functional Limitation: 86.62% Impaired in [...] current Physical Therapy Discharge Summary. * Jazzy Talamantesmandajean-pierre - 08/08/2024 10:07 AM EDT Acute Occupational [...] positioning Mobility Assessment/Intervention: Supine to Sit Mobility [place] Level: Supine->Sit: moderate assist (50% patient effort) [...] positioning Transfer Assessment/Intervention: Sit to Stand Transfer [place] Level: Sit->Stand: moderate assist (50% patient effort) Physical Assist: Sit->Stand: 2 person assist Assistive Device: Sit->Stand: gait belt, hand held assist Skilled Rationale: Verbal cues, Tactile cues, Hand placement, Positioning, Technique of activity Skilled Intervention/Details: Sit->Stand: x1 from EOB, x1 from recliner. Cues for technique and assuming an upright posture once standing Stand to Sit Transfer [place] Level: Stand->Sit: moderate assist (50% patient effort) Physical Assist: Stand->Sit: 2 person assist Assistive Device: Stand->Sit: gait belt, hand held assist Skilled Rationale: Verbal cues, Tactile cues, Hand placement, Positioning, Controlled descent for sitting Skilled Intervention/Details: Stand->Sit: Cues for positioning with recliner and using arms to help with controlled descent into chair Bed-Chair Transfer [place] Level: Bed<->Chair: maximum assist (25% patient effort) [...] appropriately position with chair. Outcome Score(s): [facility] Daily Activity Inpatient Short Form Putting on/Taking Off Lower Body Clothin - Total Assistance Bathin - A Lot of Assistance Toiletin - Total Assistance Putting on/Taking Off Upper Body Clothin - A Lot of Assistance Groomin - A Lot of Assistance Eatin - Total Assistance [facility] Activity Raw Score: 9 CURRENT -[facility] Activity Functional Limitation/Modifier: 79.59% Currently Impaired [...] RN aware Needs in reach. Time In: 09 Time Out: 1007 Total Visit Time: 24 [...] skilled clinical decisions and judgements. * Bella Cardenas APRN-GARRETT - 08/08/2024 7:21 AM EDT NEUROVASCULAR STROKE SERVICE Daily Progress Note IDENTIFYING INFORMATION Lindsay Acuna MR# [id number] 08/08/2024 HISTORY OF PRESENT ILLNESS Lindsay Acuna is a 78 y.o. female with PMH significant for CAD, HTN, HLD, T2DM, Afib (on Eliquis, although patient reports she has not been taking it) who presents with L hemiplegia, slurred speech. LKW 0915 on 08/02, later found down with slurred speech and L hemiplegia. She presented to [facility] and was seen on Telestroke, NIHSS [...] 2b revascularization. INTERVAL HISTORY 08/05: [place] [facility] [place] 08/[place]: Failed MBS. Increased lopressor. [...] as above -Rate controlled on metoprolol Dysphagia: -REVIEW MANAGER following -NPO, DHT + TF -Failed MBS [...] Lindsay Acuna will likely be discharged to [facility] when medically ready Bella Cardenas, DIRECTOR PRISON-ORGANIC SECTION TECHNICAL LEAD 08/08/2024 2:53 PM VITAL SIGNS Temp: [97.4 [...] for specific therapeutic recommendations, please see the brim pouncer report of the speech pathologist. Examination performed [...] bed availability Current Referrals and Status 1. [facility] CCM notified LUCIO student confirming after call with Patient's daughter that [facility] facility of choice. Facility reserved. AVS/DAVE updated. Social Darren Work Student Available by Secure Chat Cosigned by OWEN Keller at 08/08/2024 7:39 AM EDT * Prema Resendez RN - 08/07/2024 2:39 PM EDT Care Management Progress Note Notified by LUCIO bedolla that patient's daughter, Gisela Acuna, has questions for this CM. Called Gisela, who asked if [facility] is able to accept or not. Discussed with Gisela that [facility] responded that they are out of network with patient's insurance, therefore only option would be private pay. Gisela stated that patient and patient's spouse are agreeable to [facility] as facility of choice, and Gisela is agreeable to [facility] as well. Updated LUCIO student. Simin Resendez RN, BSN Clinical Freight Rate Clerk [facility] * Chela Hannon - 08/07/2024 2:08 PM EDT Placement Plan PLATEN PRESS OPERATOR met with Patient and spouse at bedside to discuss facility choice. Spouse mentioned that [facility] was first choice, though PLATEN PRESS OPERATOR provided update that [facility] could not accept after reviewing. PLATEN PRESS OPERATOR reviewed other IPR options with Spouse, who reports that [facility] facility of choice. Spouse discussed with daughter Gisela via phone, who is in agreement but requestsa return call. PLATEN PRESS OPERATOR notified CCM. Chela P., Social Work Student Available by Secure Chat Cosigned by OWEN Keller at 08/07/2024 2:11 PM EDT * Bella Cardenas, DIRECTOR PRISON-ORGANIC SECTION TECHNICAL LEAD - 08/07/2024 6:54 AM EDT NEUROVASCULAR STROKE SERVICE Daily Progress Note IDENTIFYING INFORMATION Lindsay Acuna MR# [id number] 08/07/2024 HISTORY OF PRESENT ILLNESS Lindsay Acuna is a 78 y.o. female with PMH significant for CAD, HTN, HLD, T2DM, Afib (on Eliquis, although patient reports she has not been taking it) who presents with L hemiplegia, slurred speech. LKW 0915 on 08/02, later found down with slurred speech and L hemiplegia. She presented to [facility] and was seen on Telestroke, NIHSS [...] 2b revascularization. INTERVAL HISTORY 08/05: [place] [place]: Failed MBS. Increased lopressor. [...] as above -Rate controlled on metoprolol Dysphagia: -REVIEW MANAGER following -NPO, DHT + TF -Failed MBS [...] Lindsay Acuna will likely be discharged to [facility] when medically ready Bella Cardenas, JASIEL-ORGANIC SECTION TECHNICAL LEAD 08/07/2024 3:06 PM VITAL SIGNS Temp: [97.5 [...] for specific therapeutic recommendations, please see the brim pouncer report of the speech pathologist. Examination performed [...] authorization, transportation Current Referrals and Status 1. [facility]: Available 2. [facility]: Available 3. [facility]: Available (pending PEG or diet and their MD requested aspirin started before discharge) 4. [facility]: Available 5. [facility]: Unavailable, out of network 6. [facility]: Unavailable, Incorrect Level of Care 7. [facility] IPR: shaheed Met with patient and patient's spouse, Ike, at bedside to provide choice list. Ike called patient's daughter, Gisela Acuna, to discuss as well. Gisela requested information on private pay at [facility], messaged [facility] liaison and then provided information to Gisela. Gisela requested CM sendreferral to [facility] IPR. Plan for family to review choice list tonight, CM/SW team will update patient and family regarding [facility] IPR response tomorrow morning. This CM's contact information provided to Ike Acuna and Gisela Acuna for any further questions. Simin Resendez RN, BSN Clinical Freight Rate Clerk [facility] * Florinda Velasquez, PT - 08/06/2024 [...] minutes Mobility Assessment/Intervention: Supine to Sit Mobility [place] Level: Supine->Sit: moderate assist (50% patient effort) Bed Features/Set-up: Supine->Sit: Head of bed elevated, Use of bed rail Skilled Rationale: Positioning, Sequencing Skilled Intervention/Details: Supine->Sit: step by step cues for sequencingg Transfer Assessment/Intervention: Sit to Stand Transfer [place] Level: Sit->Stand: moderate assist (50% patient effort) [...] left UE during transitional movements Bed-Chair Transfer [place] Level: Bed<->Chair: moderate assist (50% patient effort) Physical Assist: Bed<->Chair: 2 person assist Assistive Device: Bed<->Chair: gait belt, hand held assist Skilled Rationale: Positioning, Hand placement, Verbal cues, Sequencing Skilled Intervention/Details: Bed<->Chair: Pt educated in bed to BSC commode transfer x 2-3 steps with cues for LE sequencing, left LE weakness requiring intermittent blocking Gait/Functional Mobility Assessment/Intervention: Gait Assessment Prairie Level: Gait: (mod/max) Physical Assist: Gait: 2 [...] prevent buckling. Stairs Assessment/Intervention: Outcome Score(s): [facility] Basic Mobility Inpatient Short Form Turning [...] with a railin - Total Assistance [facility] Mobility Raw Score: 9 [facility] Mobility Functional Limitation: 81.38% Impaired in [...] Physical Therapy Discharge Summary. * Nimesh Balderrama [facility] - 08/06/2024 1:42 PM EDT Department of Pharmacy Admission Medication Reconciliation Note Patient: Lindsay Acuna Room/Bed: 1043/A I have reviewed the patient's home medication list with the following sources Dispense Report. The home medication list status is: complete. All changes to the home medication list have been updated in [facility]. Updated SUPERVISORY AIDE Med List: Prior to Admission Medications Prescriptions [...] with any further questions. Name: Nimesh Balderrama [facility] Phone #: [phone] Date/Time: 08/06/2024 1:42 PM Time Spent: 10 [...] noted Mobility Assessment/Intervention: Supine to Sit Mobility Prairie Level: Supine->Sit: moderate assist (50% patient effort) [...] completion. Transfer Assessment/Intervention: Sit to Stand Transfer Prairie Level: Sit->Stand: (x 1 trial from EOB [...] and kyphotic posture. Stand to Sit Transfer Prairie Level: Stand->Sit: moderate assist (50% patient effort) Assistive Device: Stand->Sit: gait belt (Arm and arm assist.) Skilled Rationale: Cues for increased safety, Initiation and execution of task, Technique of activity, Controlled descent for sitting, Ischial assist, Arm in arm, Tactile cues, Verbal cues, Hand placement, Sequencing, Positioning Bed-Chair Transfer Prairie Level: Bed<->Chair: moderate assist (50% patient effort) [...] with left LE). Functional Mobility: Functional Mobility Prairie Level: Functional Mobility/Gait: (Moderate-max assistance) Physical Assist: [...] overall decreased insight/awareness intodeficits. Outcome Score(s): [facility] Daily Activity Inpatient Short Form Putting on/Taking Off Lower Body Clothin - Total Assistance Bathin - A Lot of Assistance Toiletin - Total Assistance Putting on/Taking Off Upper Body Clothin - A Lot of Assistance Groomin - A Lot of Assistance Eatin - Total Assistance ([place].) [facility] Activity Raw Score: 9 [facility] Activity Functional Limitation/Modifier: 79.59% Currently Impaired [...] current Occupational Therapy Discharge Summary. * Taran Traore, DIRECTOR PRISON-ORGANIC SECTION TECHNICAL LEAD - 08/06/2024 7:49 AM EDT NEUROVASCULAR STROKE SERVICE Daily Progress Note IDENTIFYING INFORMATION Lindsay Acuna MR# [id number] 08/06/2024 HISTORY OF PRESENT ILLNESS Lindsay Acuna is a 78 y.o. female with PMH significant for CAD, HTN, HLD, T2DM, Afib (on Eliquis, although patient reports she has not been taking it) who presents with L hemiplegia, slurred speech. LKW 0915 on 08/02, later found down with slurred speech and L hemiplegia. She presented to [facility] and was seen on Telestroke, NIHSS [...] 2b revascularization. INTERVAL HISTORY 08/05: Transfer [place] MBS tomorrow 08/06: Failed MBS. Increased lopressor. [...] as above -Rate controlled on metoprolol Dysphagia: -REVIEW MANAGER following -NPO, DHT + TF -Failed MBS [...] Lindsay Acuna will likely be discharged to [facility] when medically ready Taran Traore APRN-ORGANIC SECTION TECHNICAL LEAD 08/06/2024 1:43 PM VITAL SIGNS Temp: [96.5 [...] for specific therapeutic recommendations, please see the brim pouncer report of the speech pathologist. Examination performed [...] Progress Note IDENTIFYING INFORMATION Lindsay Acuna MR# [id number] 08/05/2024 HISTORY OF PRESENT ILLNESS Lindsay Acuna is a 78 y.o. female with PMH significant for CAD, HTN, HLD, T2DM, Afib (on Eliquis, although patient reports she has not been taking it) who presents with L hemiplegia, slurred speech. LKW 0915 on 08/02, later found down with slurred speech and L hemiplegia. She presented to [facility] and was seen on Telestroke, NIHSS [...] 2b revascularization. INTERVAL HISTORY 08/05: Transfer [place] [facility] tomorrow PHYSICAL EXAM Gen: awake, alert, NAD [...] as above -Rate controlled on metoprolol Dysphagia: -REVIEW MANAGER following -NPO, DHT + TF -MBS tomorrow HLD, POA: -Atorvastatin 40 mg daily CAD, POA: -Hold ASA for 7 days due to ICH T2DM, POA: -SSI regular + accuchecks CKD Stage 3A, POA: Baseline Cr 1.3 -Avoid nephrotoxins, monitor Hypothyroidism, POA: -Continue home levothyroxine 75 mcg daily Disposition: Lindsay Acuna will likely be discharged to [facility] when medically ready Taran Traore APRN-ORGANIC SECTION TECHNICAL LEAD 08/05/2024 2:19 PM VITAL SIGNS Temp: [97.8 [...] on the below outcome measures/assessment score(s), and REVIEW MANAGER clinical judgment, discharge destination recommendation is: Pending [...] Impaired cognitive skills limiting saf ety/insight Acute REVIEW MANAGER Outcomes Tracking Communicate basic wants and needs?: [...] oropharyngeal swallow function to most appropriately guide REVIEW MANAGER plan of care. Of note, patient is [...] Currentdeficits impact her safety and independence. Ongoing REVIEW MANAGER services are warranted. Subjective information: Awake, alert, [...] O2 Device: room air (08/05 0830) Acute REVIEW MANAGER Goals Plan of Care by Queta Gardner REVIEW MANAGER at 08/05/2024 11:49 AM Version 1 of [...] oropharyngeal swallow function to most appropriately guide REVIEW MANAGER plan of care Outcome: Ongoing Problem: REVIEW MANAGER - Cognition Goal: Orientation Log - Patient [...] better assess deficits and most appropriately guide REVIEW MANAGER plan of care Outcome: Met Tx: Noted [...] Plan for next session: 08/05: Good candidate; [facility] REVIEW MANAGER Outcomes: REVIEW MANAGER Outcomes / Standardized Measures Score The Orientation [...] wrist restraints, RN aware Needs in reach. REVIEW MANAGER Evaluation and Treatment Time Speech Therapy - Individual 32373: 8 Swallowing Dysfunction Treatment 32171: 9 Upon discontinuation of Acute Care Speech Therapy Services or patient discharge from the hospital this note represents the current Speech Therapy Discharge Summary * Chela Hannon - 08/05/2024 10:37 AM EDT Placement Plan Expected Discharge Date: TBD Referred Level of Care: IPR Barriers: medical stability, bed availability Current Referrals and Status 1. [facility]- sent; denied (Patient is OON) 2. [facility]- sent 3. [facility]- sent 4. [facility]- sent 5. [facility]- sent 6. [facility] PLATEN PRESS OPERATOR met with Patient and Spouse at bedside to discuss discharge planning. Patient and spouse were agreeable to SW visit. PLATEN PRESS OPERATOR discussed therapy recommendations with Spouse for Patient to go to [facility] at discharge. Spouse is agreeable to a referral being sent to [facility]. Referral sent. Spouse requested to speak to about assessing Patient for dementia. PLATEN PRESS OPERATOR and bedside RN encouragedSpouse to discuss with Patient's outpatient provider. Chela Snyder, Social Work Student Available by Secure Chat Cosigned by OWEN Keller at 08/05/2024 11:22 AM EDT * Savana Lueng RD - 08/05/2024 10:10 AM EDT NUTRITION ASSESSMENT Nutrition Recommendations and Plan of Care: 1. Diet: NPO. Advancement per team/REVIEW MANAGER recommendation 2. Ordered TF: Glucerna 1.5 @ [...] time. Per team, pt failed bedside swallow. REVIEW MANAGER consulted for swallow eval. Past History No [...] kg (172 lb) 06/26/24 78.9 kg (174 lb)-[facility] 05/31/24 79 kg (174 lb 2.6 oz)-[facility] 11/28/23 80.6 kg (177 lb 9.6 oz)-[facility] 09/29/23 84 kg (185 lb)-[facility] Pt without significant weight change SUPERVISORY AIDE. Tmax: 97.8*F BP: (!) 173/94 Pulse (Heart Rate): 98 Oxygen Therapy: room air Labs reviewed: Na/K+/Phos/Mg/Ca: 143/3.8/2.7/1.8/-- (08/05 26) Bun/Creat/Cl/CO2/Glucose: 35/1.45/108/25/242 (08/05 26) WBC/Hgb/Hct/Plts: 10.61/12.6/39.6/198 (08/05 0027) Meds: Vital AF 1.2 Ruiz Stopped (08/05/24 [...] proximal second portion of the duodenum. BM: SUPERVISORY AIDE Urine: 725mL Skin: Raghu Score: 13 Active Wounds: Wound Sheath Site 08/02/24 1500 Right Radial (3) Wound Abrasion 08/02/24 2109 Left;Upper Face (3) Edema- None Estimated Nutrition Needs: Based on IBW (61.4kg) Estimated Kcals Needs: 9542-6796 kcals (25-30kcals/kg) Estimated Pro Needs: 74-92g Pro (1.2-1.5g/kg) Estimated Fluid Needs: Per MD Nutrition Focused Physical Exam Completed?: completed Subcutaneous Fat Loss: Orbital Region (Orbital Fat Pads): WDL Cheek Region (Buccal Fat Pads): WDL Upper Arm Region (Triceps): WDL Thoracic and Lumbar Region (Ribs, Lower Back, Midaxillary Line): WDL Muscle Wasting: Edison Region (Temporalis Muscle): deferred (lac over eyebrow) [...] (2012) ELVIRA Ho, RD, LD, CNSC Pager: [phone] * Rashad Rg MD - 08/05/2024 9:42 AM EDT 78F admitted to the [facility] with Rt M1 occlusion s/p TICI2b revascularization. [...] critical care time 31min. * Shanna Russ, DIRECTOR PRISON-ORGANIC SECTION TECHNICAL LEAD - 08/05/2024 7:20 AM EDT NEUROCRITICAL CARE [...] Visual richards intact to confrontation. PERRL. 3mm legislative correspondent III, IV and : EOMI. No nystagmus. [...] aggressive pulm edema, OOB as toleratd - [id number], encourage pulmonary toileting Cards: Essential HTN HLD [...] NPO AND TUBE FEEDING with meds (per [facility]) - Gonzales Swallow Screening Result: failed=NPO Bowel regimen: - Last Bowel Movement: (prior to admission) - Senna 17.2 mg Q12H, miralax BID, suppository PRN Stress ulcer prophylaxis: - none Dysphagia - DHT placed - REVIEW MANAGER following; NPO continue following, on TF - [...] subcutaneous heparin [x] Lines Lesly: n/a Gallegos: remove Rectal tube: n/a Enteral [...] the assigned neurocritical care provider (resident, fellow, PEDIGREE TRACER, orPA) or page/call the corresponding number below NCC1 (Beds 9429-4645): [place] # [phone], pager #[phone] NCC2 (Beds 3055-8728, 12 [address]ando, and overflow): [place] #: [phone], pager #[phone] * Florinda Velasquez, PT - 08/04/2024 1:36 [...] noted Mobility Assessment: Supine to Sit Mobility Prairie Level: Supine->Sit: moderate assist (50% patient effort) [...] EOB Transfer Assessment: Sit to Stand Transfer [place] Level: Sit->Stand: moderate assist (50% patient effort) Physical Assist: Sit->Stand: 2 person assist Assistive Device: Sit->Stand: gait belt, hand held assist Skilled Rationale: Positioning, Sequencing, Hand placement, Verbal cues Skilled Intervention/Details: Sit->Stand: x 1 from EOB Bed-Chair Transfer Prairie Level: Bed<->Chair: moderate assist (50% patient effort) Physical Assist: Bed<->Chair: 2 person assist Assistive Device: Bed<->Chair: gait belt, hand held assist Skilled Rationale: Positioning, Sequencing, Hand placement, Verbal cues Skilled Intervention/Details: Bed<->Chair: x 2-3 steps from bed to chair Gait/Functional Mobility: Stairs: Outcome Score(s): CURRENT AM-PAC Basic Mobility Inpatient [...] with a railin - Total Assistance CURRENT -[facility] Mobility Raw Score: 10 [facility] Mobility Functional Limitation: 76.75% Impaired in [...] Edema: Mobility Assessment: Supine to Sit Mobility [place] Level: Supine->Sit: moderate assist (50% patient effort) Physical Assist: Supine->Sit: 2 person assist Bed Features/Set-up: Supine->Sit: Head of bed elevated Skilled Rationale: Positioning, Hand placement, Verbal cues, Technique of activity Transfer Assessment: Sit to Stand Transfer [place] Level: Sit->Stand: moderate assist (50% patient effort) Physical Assist: Sit->Stand: 2 person assist Assistive Device: Sit->Stand: gait belt, hand held assist Skilled Rationale: Positioning, Hand placement, Verbal cues, Technique of activity Stand to Sit Transfer [place] Level: Stand->Sit: moderate assist (50% patient effort) Physical Assist: Stand->Sit: 2 person assist Assistive Device: Stand->Sit: hand held assist Skilled Rationale: Positioning, Hand placement, Verbal cues, Arm in arm, Controlled descent for sitting Bed-Chair Transfer Prairie Level: Bed<->Chair: moderate assist (50% patient effort) Physical Assist: Bed<->Chair: 2 person assist Assistive Device: Bed<->Chair: gait belt, hand held assist Skilled Rationale: Arm in arm, Patellar block, Technique of activity Skilled Intervention/Details: Bed<->Chair: LLE weakness/blocking of patella with transfer, pivot to right Functional Mobility: Outcome Score(s): [facility] Daily Activity Inpatient Short Form Putting on/Taking Off Lower Body Clothin - A Lot of Assistance Bathin - A Lot of Assistance Toiletin - Total Assistance Putting on/Taking Off Upper Body Clothin - A Lot of Assistance Groomin - A Little Assistance Eatin - Total Assistance [facility] Activity Raw Score: 11 [facility] Activity Functional Limitation/Modifier: 70.42% Currently Impaired [...] assessment and plan as documented by the PEDIGREE TRACER with my changes/additions added. Patient is a [...] ICH x 7 days - Statin - PT/OT/REVIEW MANAGER evaluation Pulmonary: No acute issues, appears to [...] and other supportive care as per the PEDIGREE TRACER note from the same day This patient [...] care services to the [facility], teaching and other care providers. Management of the above was performed. My time managing this critically ill patient included review of interval history, laboratories, radiology and cons ultation reports; performing a physical examination; discussing the patient with the multi-disciplinary team and managing life sustaining therapies to prevent imminent clinical deterioration. Richard Mejia MD Neurocritical Care Attending * Balbir Mccoy, DIRECTOR PRISON-ORGANIC SECTION TECHNICAL LEAD - 08/04/2024 7:44 AM EDT NEUROCRITICAL CARE [...] Visual richards intact to confrontation. PERRL. 3mm legislative correspondent III, IV and : EOMI. No nystagmus. [...] Issues O2 Sat (%): 94 % (08/04 699) O2 Device: room air (08/04 699) - Goal SpO2 >92%; wean FiO2 as tolerated - EBK6PTC, encourage pulmonary toileting Cards: Essential HTN HLD [...] TUBE FEEDING with meds (per DHT) - Gonzales Swallow Screening Result: failed=NPO Bowel regimen: - Last Bowel Movement: (prior to admission) - Senna 17.2 mg Q12H, miralax at bedtime Stress ulcer prophylaxis: - none Dysphagia - DHT placed - REVIEW MANAGER following - Tube feed: Vital AF with [...] not indicated DVT: subcutaneous heparin [x] Lines [place]: n/a Gallegos: inserted 08/02, (indication: strict I&O with concern for KELI) Rectal tube: n/a Enteral access: inserted 08/03, [ ] gastric; [x ] post-pyloric CENTRAL LINES: Central Line Indications: No line currently in place Can line/s be removed today? No line in place at this time Dressing/s Clean/Dry/Intact?: No line currently in place Discussed with NCCU Attending, PATRIZIA Ennis 08/04/24 7:44 AM Check the treatment team to find the assigned neurocritical care provider (resident, fellow, PEDIGREE TRACER, orPA) or page/call the corresponding number below NCC1 (Beds 9443-3051): [place] # [phone], pager #[phone] NCC2 (Beds 4295-1718, 12 [address], and overflow): [place] #: [phone], pager #[phone] * Rafael Garcia MD - 08/03/2024 2:16 PM EDT NEUROVASCULAR Consult Daily Progress Note IDENTIFYING INFORMATION Lindsay Acuna MR# [id number] 08/03/2024 HISTORY OF PRESENT ILLNESS Lindsay Acuna is a 78 y.o. female with PMH significant for CAD, HTN, HLD, T2DM, Afib (on Eliquis, although patient reports she has not been taking it) who presents with L hemiplegia, slurred speech. She was last seen normal by her at 0915, later found down with slurred speech and L hemiplegia. She presented to [facility] and was seen on Telestroke, NIHSS [...] speech and L hemiplegia. She presented to [facility] and was seen on Telestroke, NIHSS [...] workup. Delbert Kasper MD * Nohelia Oconnell, REVIEW MANAGER - 08/03/2024 12:09 PM EDT Acute Care REVIEW MANAGER Speech/Language/Cognitive Evaluation Best mode of Communication: spoken language (regular speech) Discharge Recommendations: Based on the below outcome measures/assessment score(s) and REVIEW MANAGER clinicaljudgment, discharge destination recommendation is: (Skilled speech therapy services at next level of care) Barriers to discharge home: Cognitive impairments that impact safety and independence Supporting factors for discharge setting: Impaired swallow function limiting nutritional status andsafety with oral intake Acute REVIEW MANAGER Outcomes Tracking Communicate basic wants and needs?: [...] speech and L hemiplegia. She presented to [facility] and was seen on Telestroke,NIHSS 12. [...] 0 Asthenia (A): 0 Strain (S): 0 REVIEW MANAGER Outcomes / Standardized Measures Score The Orientation [...] unable to respond. Total Score: 12 Acute REVIEW MANAGER Goals Plan of Care by Nohelia Oconnell REVIEW MANAGER at 08/03/2024 11:25 AM Version 1 of 1 Problem: Dysphagia Goal: Ongoing Assessment - Patient will participate in ongoing assessment by accepting various PO consistency trials with appropriate participation/oral acceptance and no significant respiratory complications to determine readiness for diet advancement Outcome: Ongoing Problem: REVIEW MANAGER - Cognition Goal: Orientation Log - Patient [...] better assess deficits and most appropriately guide REVIEW MANAGER plan of care Outcome: Ongoing Speech Language [...] of session: bed alarm Needs in reach. REVIEW MANAGER Evaluation and Treatment Time Speech Eval - Sound Production W/Lang Comp and Exp 18796: 11 Swallowing Eval 76779: 10 Upon discontinuation of Acute Care Speech [...] on the below outcome measures/assessment score(s) and REVIEW MANAGER clinicaljudgment, discharge destination recommendation is: Deferred to PT/OT recomendations related to mobility Current therapy frequency recommendation in acute care: Swallow Therapy Frequency: 5 times a week Acute REVIEW MANAGER Outcomes Tracking Communicate basic wants and needs?: [...] speech and L hemiplegia. She presented to [facility] and was seen on Telestroke,NIHSS 12. 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 Prior REVIEW MANAGER history: No prior speech history per chart [...] and Liquids Trialed Modality Amount Ice Teaspoon, REVIEW MANAGER-fed 3x Thin Teaspoon 3x Oral Phase Function [...] Patient presents with presumed pharyngeal phase impairments. Gonzales Swallow Screen: (administered by: RN) Gonzales Swallow Screening Screening Exclusion Criteria: none, continue with Gonzales Swallow Screening Cognitive Screen: Orientation: able to [...] Water Swallow Challenge : coughing/throat clearing-overt signs/symptoms Tabitha Swallow Screening Result: failed=NPO Voice and Swallow [...] Ok for ice chips with RN supervision. REVIEW MANAGER will continue to follow for ongoing dysphagia management. Patient Education/Instruction Learners: Patient Education provided: Dysphagia recommendation risk: benefit analysis, Role of this discipline Teaching method: Verbal Education/Instruction Learner response: Needs review Learning preferences: Auditory Learning considerations: Cognition Plan for next session: 08/03: Good Prognosis, ongoing dysphagia management to determine readiness for diet advancement vs instrumental. Acute REVIEW MANAGER Goals Plan of Care by RIKI Hayes at 08/03/2024 11:25 AM Version 1 of 1 Problem: Dysphagia Goal: Ongoing Assessment - Patient will participate in ongoing assessment by accepting various PO consistency trials with appropriate participation/oral acceptance and no significant respiratory complications to determine readiness for diet advancement Outcome: Ongoing Problem: REVIEW MANAGER - Cognition Goal: Orientation Log - Patient [...] better assess deficits and most appropriately guide REVIEW MANAGER plan of care Outcome: Ongoing Speech Language Pathologist: RIKI Hayes, BCS-S Board Certified Specialist in Swallowing and Swallowing Disorders Available via Blippar Chat Time In: 1130 Time Out: 1151 Total Visit Time: 21 minutes Total Treatment Time (skilled, billable minutes): 21 minutes Non-billable assistance during session: none Assisted by during session: Patient's PPE used during patient interaction: gloves Patient location/status at end of session: bed with head of bed elevated Patient alarms at end of session: bed alarm Needs in reach. REVIEW MANAGER Evaluation and Treatment Time Speech Eval - Sound Production W/Lang Comp and Exp 98500: 11 Swallowing Eval 20557: 10 Upon discontinuation of Acute Care Speech Therapy Services or patient discharge from the hospital this note represents the current Speech Therapy Discharge Summary * Richard Mejia MD - 08/03/2024 10:30 AM EDT I have independently seen and examined the patient on 08/03/24. I agree with the history, examination, assessment and plan as documented by the PEDIGREE TRACER with my changes/additions added. Patient is a [...] the setting of ICH - Statin - PT/OT/REVIEW MANAGER evaluation Pulmonary: No acute issues, appears to [...] and other supportive care as per the PEDIGREE TRACER note from the same day This patient [...] care services to the patient today independent ofprocedures, teaching and other care providers. Management of [...] with assistance from spouse Care Management Plan PLATEN PRESS OPERATOR met with Patient and Spouse at bedside to complete Initial Assessment. They were agreeable to SW visit. Patient was lethargic though able to answer some short questions. Patient consented to Spouse assisting with assessment. Spouse/Patient report that Patient has never completed a HCPOA. They expressed interest, and PLATEN PRESS OPERATOR will follow to complete document when Patient is more alert and oriented. Spouse reports himself and Patient live in a ranch-style home with strong supports from their community, including 2 neighbors that have assisted at this time. He noted that himself and Patient recently returned from a visit to [facility] for their 50 anniversary. Spouse reports that their 2 children will be visiting soon. PLATEN PRESS OPERATOR explained SW role and offered resources. Spouse [...] Name and Contact information: Ike Acuna P: [phone] Adult Child(jj), List All Adult Children: Yes Name and Contact information: Donnell Acuna P: [phone]; Nathen Acuna P: [phone] Would you like to add additional adult [...] for Advance Care Planning? : Patient Agreeable (PLATEN PRESS OPERATOR to follow for HCPOA completion when Patient is more alert and oriented) Medication Management Does the patient have prescription insurance coverage? : Yes Is the patient on Anticoagulation? : Yes (Per chart review, Patient is on anticoagulation but has not been taking it (does not recall the last time she took a dose)) Provider or Clinic that manages Anticoagulation?: (unspecified at this time) [facility] [address] [place] [phone] [address] Living Environment and Support System Is the patient from a facility or alf?: No Living Environment: House ("1 bedroom ranch") Patient Caregiving Responsibilities: Self Patient-identified caregiver/support network: Family, Friends, Neighbors, Mosque Who does the patient identify as a teachable caregiver(s)?: Spouse or Partner Services Does the patient use a home health or hospice agency?: No Current with dialysis?: No Does the patient use any community programs or services?: No Does patient use DME? : jose a hartleyator (collapsible cane) DME provider name and contact: [...] themselves at home? : Unable to assess Outside Upholsterer Does the patient or ocean import representative express financial concerns? : No Chela Snyder Social Work Student Available by Secure Chat Cosigned by OWEN Keller at 08/03/2024 11:20 AM EDT * Balbir Mccoy, DIRECTOR PRISON-ORGANIC SECTION TECHNICAL LEAD - 08/03/2024 7:40 AM EDT NEUROCRITICAL CARE [...] Visual richards intact to confrontation. PERRL. 3mm legislative correspondent III, IV and : EOMI. No nystagmus. [...] SpO2 >92%; wean FiO2 as tolerated - PCS3GYF, encourage pulmonary toileting Cards: Essential HTN HLD [...] - Bowel regimen: - Last Bowel Movement: (SUPERVISORY AIDE) - Senna, miralax Stress ulcer prophylaxis: - none Dysphagia - DHT placed - REVIEW MANAGER following - Tube feed: Vital AF with goal rate 70 mL/h Endo: DM Type 2 Hypothyroid DM - Goal blood glucose 140-180 - home regimen: Glimepiride 2 mg daily, metformin 1000 mg daily - current regimen: Insulin high SSI regular Q6H - A1c: 7.8 Recent Labs 08/02/24184208/02/24232408/03/24 0002 GLUCOSE 210* 161 151 HGBA1C 7.8* -- -- Hypothyroid - continue home synthroid 75 mcg daily ID: No Current Issues Recent Labs 08/02/24184208/03/24 0002 WBC 8.16 8.43 - Temp (24hrs), [...] the assigned neurocritical care provider (resident, fellow, PEDIGREE TRACER, orPA) or page/call the corresponding number below NCC1 (Beds 5680-2105): [place] # [phone], pager #[phone] NCC2 (Beds 0374-1922, 12 Nando, and overflow): [place] #: [phone], pager #[phone] * Nando Caceres MD - 08/03/2024 6:00 [...] nccu Neurosurgery signing off Please page NS2 ([phone]) with questions Complexity. Hypocalcemia - Continue to monitor and replete. Any conditions listed below are present on admission unless otherwise specified. . Cosigned by Prema Ramos MD at 08/03/2024 6:37 PM EDT * Andreas Ga [facility] - 08/02/2024 10:57 PM EDT Department of Pharmacy Renal Documentation Note Patient: Lindsay Acuna Room/Bed: [facility]/ Assessment and Plan: The patient's most recent [...] any questions, Name: Andreas Ga RPH Phone: [phone] Date/Time: 08/02/2024 10:57 PM * Richard Mejia MD - 08/02/2024 6:01 PM EDT I have independently seen and examined the patient on 08/02/24. I agree with the history, examination, assessment and plan as documented by the PEDIGREE TRACER with my changes/additions added. Patient is a [...] to determine stroke burden - Statin - PT/OT/REVIEW MANAGER evaluation Pulmonary: No acute issues, appears to [...] stage 3a - Maintain euvolemia GI/Nutrition: - REVIEW MANAGER evaluation - Bowel regimen to prevent constipation [...] and other supportive care as per the PEDIGREE TRACER note from the same day This patient [...] MD Neurocritical Care Attending documented [facility] Consult note* Niru Kohc MD - 08/10/2024 2:12 PM EDT I [...] PM EDTAssociated Order(s): IP CONSULT TO GASTROENTEROLOGY [facility] IBD Consult WebExchange --> IM [...] today. Consent obtained by at bedside. - REVIEW MANAGER eval: none - RD eval: none PAST [...] ASSESSMENT/RECOMMENDATIONS: - primary team feels that termite control representative enteric nutrition is warranted in s/o CVA. Patient is appropriate for endoscopic PEG placement. Consent obtained from at bedside. - we will tentatively plan for EGD for PEG placement 08/09 as add on case. See pre procedure recommendations below. For PEG: - Ancef ordered (1 gm if patient is <80 kg; 2 gm if patient is >80 kg) as "admission discharge rn to the procedure"). - Please make NPO [...] Hepatology, and Nutrition Clinical Fellow PGY-4 Pager: [phone] For urgent/stat calls 5pm to 7am or all day on the weekend, please page the on- call GI fellow on [employer]. IM Consult Serv [facility] --> [facility] STAT/NEW GI consults For follow up questions regarding this patient, contact the IBD consults fellow or DAHLIA on [employer]. IM Consult Serv [facility] --> [facility] [...] medical decisions as outlined. Need for termite control representative non-oral enteric nutrition per primary team. We will facilitate this with planned PEG tube placement. Before placement, non-GI management of TF should be established to avoid delays. David Woods M.D. * Emelyn Suazo, JASIEL-ORGANIC SECTION TECHNICAL LEAD - 08/05/2024 9:24 AM EDTAssociated Order(s): IP CONSULT TO GERIATRICS Geriatrics IP Consult Service - New Consult Note Assessment and Plan Debility with CVA with left side weakness PT / OT recs for IRF REVIEW MANAGER as planned for dysphagia DHT for entral [...] 3.5. 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 Ramos Covering: ADELSO ([id number]) ## neurosurgery coverage changes at 0530/1730; [...] with the resident. I agree with the 's history, physical examination, and medical decisions as [...] team with any questions/concerns. Prema Ramos M.D. Inspector Tubes Department of Neurosurgery [facility] * Taran Traore, DIRECTOR PRISON-ORGANIC SECTION TECHNICAL LEAD - 08/02/2024 2:44 PM EDT Neurovascular Evaluation [...] speech and L hemiplegia. She presented to [facility] and was seen on Telestroke, NIHSS [...] Scales Flowsheet Row Most Recent Value Modified [place] Scale Score Premorbid (MRSS) 0 filed on [...] protrudes midline Motor: L hemiplegia Reflexes: Coordination: Hqsmzo-if-gqgr intact on the R, unable to test on the L Sensation: Diminished on the L with tactile extinction on L Gait: Deferred Laboratory Results Diagnostics/Procedures: Labs-CBC Labs-Chem 7([facility]) Labs-Coags Additional Labs No results found for: [...] Continuous telemetry -PT, OT, Speech and social worker clinical consults Other problems: Complexity. Any conditions listed [...] speech and L hemiplegia. She presented to [facility] and was seen on Telestroke, NIHSS [...] Delbert Kasper MD documented in this encounterOSU [facility] Procedure note* Tanja Hunter, RIKI - 08/06/2024 9:32 AM EDTAssociated Order(s): SPEECH [...] the below outcome measures/assessment score(s), MBS, and REVIEW MANAGER clinical judgment, discharge destination recommendation is: IP Rehab Facility. Patient demonstrates good candidacy for discharge to: IRF. Additional supporting factors include: Impaired swallow functionlimiting nutritional status and safety with oral intake. Acute REVIEW MANAGER Outcomes Tracking Communicate basic wants and needs?: [...] speech and L hemiplegia. She presented to [facility] and was seen on Telestroke, NIHSS [...] 2b revascularization. 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 Ongoing skilled REVIEW MANAGER services indicated to address deficits and maximize [...] PO challenge trials and dysphagia exercises, family edu RECOMMENDATIONS: Swallow Recommendations Recommended Method of Nutrition: NPO, Short-term alternate nutrition Recommended Medication Administration (as appropriate per MD): Non-Oral Recommended Rehab Activities: bolus manipulation exercises, pharyngeal contraction/effortful swallow Assessment Criteria For Skilled Therapeutic Interventions Met: yes, treatment indicated Acute REVIEW MANAGER Goals Plan of Care by RIKI Gonzales at 08/06/2024 9:33 AM Version 1 of 1 Problem: Dysphagia Goal: MBS - Patient will participate in Modified Barium Swallow (MBS) Study to objectively assess oropharyngeal swallow function to most appropriately guide REVIEW MANAGER plan of care Outcome: Met Goal: Bolus [...] Treatment Time (skilled, billable minutes): 20 minutes REVIEW MANAGER Evaluation and Treatment Time MBS/Motion Fluoroscopic Swallowing Eval 75677: 20 Speech Language Pathologist: RIKI Gonzales Time [...] end of session: none altered (RN present) REVIEW MANAGER Evaluation and Treatment Time MBS/Motion Fluoroscopic Swallowing Eval 09464: 20 Upon discontinuation of Acute Care Speech Therapy Services or patient discharge from the hospital this note represents the current Speech Therapy Discharge Summary documented in this encounterOhio [facility]03-[facility]-2025 Hospital Discharge instructions* Discharge Instructions* Jhoana Casarez APRN-ORGANIC SECTION TECHNICAL LEAD - 08/06/2024 8:38 AM EDT Please take [...] you at all times. Stroke Education: visit [email or web address] What are the most common symptoms of [...] all ordered medications [x] Avoid non-prescription or stxe-kvq-qynzzxo medication not cleared by your physician [x] [...] may call the neurovascular doctors office at [phone], if you have questions Mon-Fri between 8:30 am and 4:30 pm. - For off hours or the weekend you may call the office or the hospital combination operator at and ask for the stroke resident admission discharge rn to be paged. - If you have any other questions or needs, please call Aniyah DOSS, RN, Stroke Nurse Navigator at [phone] Mon-Fri between 7:00am and 3:00pm. - Additional assistance may be found by reaching out to our Case Management Office at [phone]. *In the event of an Emergency: If you have a physical or psychiatric emergency call 911 or go to your local emergency department. You should also call your outpatient provider's emergency number. Other reference numbers: [facility] Intake Office at [phone]; [facility] at [phone]; or Suicide Prevention Hotline at 918-209-6031. *Helpful phone numbers: Free Crisis Hotline: 2-009-489-TALK ( ) Suicide Hotline: 112.172.5921 Seniors Suicide Hotline: 208.746.5595 [facility] Youth: 112.819.3131 [facility] of [place]: [phone] (free counseling) [employer] Access Hotline: 757-935-NKOY (703-106-0471) 24-hour crisis text hotline: Text the word "4hope" to 570-174 for crisis support.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 Notes* Telephone Encounter - Michelle Hu [...] urine 11. : no Protocols used: Back [id number] documented in this encounterParkview Health08-30-2022 Miscellaneous Notes* Telephone Encounter - Jumana Modi Ma - 01/11/2022 2:34 PM EDT No looks like it was handled earlier. Jumana Modi Ma * Telephone Encounter - Kameron Caruso MD - 01/11/2022 2:26 PM EDT I did all these earlier today; was there a problem with them? Kameron Caruso MD * Telephone Encounter - Aditi Conley Pss - 01/11/2022 1:43 PM EDT Patient has [...] patient. Aditi Conley Pss documented in this encounterParkview Health08-30-2022 Miscellaneous Notes* Telephone Encounter - Kameron Caruso [...] ONCE DAILY WITH BREAKFAST documented in this encounterParkview Health08-04-2022 Miscellaneous Notes* Telephone Encounter - Mj Glover [...] request. Brigitte Dorsey RN documented in this encounterParkview Health07-12-2022 Miscellaneous Notes* Telephone Encounter - Mj Glover [...] [facility].12[facility] Patient was instructed to contact office after her appointment with name of medication. PCP agreed to fill Please advise documented in this encounterParkview Health07-12-2022 History of Present illness Narrative* Kameron Caruso MD - 11/23/2021 9:40 AM EDT Chief Complaint Patient presents with: F/U 6 Month HPI Lindsay Acuna is a 76 year old female who presents here today for a 6 month follow up. Pt here today for a 6 month follow up. Recently back from [facility]. Was told by Natives to not take [...] doing much exercise. When she was in [facility] they had to go up 207 steps, [...] disease, unspecified CKD stage, unspecified whether termite control representative insulin use (HCC) - ICD9: 250.40, 585.9, [...] Past Histories independently gathered by the clinical lab support tech and the remaining scribed note accurately describes [...] AM. Adenike Walton Ma documented in this encounterParkview Health06-02-2022 Miscellaneous Notes* Telephone Encounter - Kameron Caruso MD - 10/14/2021 9:34 AM EDT Order filed Kameron Caruso MD * Telephone Encounter - Adenike Walton Ma - 10/14/2021 9:20 AM EDT Pt stopped in the office and is requesting a new meter to be sent into [employer]. Pt uses [employer]. Adenike Walton Ma documented in this encounterParkview Health05-31-2022 Miscellaneous Notes* Telephone Encounter - Kameron Caruso [...] office and ask to speak with a FM triage nurse. Relay information below to pt. [...] where they were going to go to [facility] they have closed the border there and they are now going to [facility]. 1. Please advise if they have to [...] back. Shreya Barrios LPN documented in this encounterParkview Health05-09-2022 Miscellaneous Notes* Telephone Encounter - Jumana Modi [...] 09/14/2021 11:42 AM EDT According to the [facility] travel site Typhoid vaccine is also recommended, [...] Please call and advise. documented in this encounterParkview Health06-22-2021 History of Past illness Narrative* Problem Noted Date Resolved Date Hypertensive kidney disease with stage 3 chronic kidney disease 11/03/2020 11/05/2020 Diabetes mellitus with renal complications 05/0111/03/2020 PURE HYPERCHOLESTEROLEM 11/27/19 14 DIABETES MELLITUS TYPE II-UNCOMPL 11/26/2013 documented as of this encounter (statuses as of 09/20/2021) [facility] History of Past illness Narrative* Problem Noted Date Resolved Date Hypertensive kidney disease with stage 3 chronic kidney disease 11/03/2020 11/05/2020 Diabetes mellitus with renal complications 05/0111/03/2020 PURE HYPERCHOLESTEROLEM 11/27/19 14 DIABETES MELLITUS TYPE II-UNCOMPL 11/26/2013 documented as of this encounter (statuses as of 10/12/2021) [facility] History of Past illness Narrative* Problem Noted Date Resolved Date Hypertensive kidney disease with stage 3 chronic kidney disease 11/03/2020 11/05/2020 Diabetes mellitus with renal complications 05/0111/03/2020 PURE HYPERCHOLESTEROLEM 11/27/19 14 DIABETES MELLITUS TYPE II-UNCOMPL 11/26/2013 documented as of this encounter (statuses as of 10/14/2021) [facility] History of Past illness Narrative* Problem Noted Date Resolved Date Hypertensive kidney disease with stage 3 chronic kidney disease 11/03/2020 11/05/2020 Diabetes mellitus with renal complications 05/0111/03/2020 PURE HYPERCHOLESTEROLEM 11/27/19 14 DIABETES MELLITUS TYPE II-UNCOMPL 11/26/2013 documented as of this encounter (statuses as of 11/23/2021) [facility] History of Past illness Narrative* Problem Noted Date Resolved Date Hypertensive kidney disease with stage 3 chronic kidney disease 11/03/2020 11/05/2020 Diabetes mellitus with renal complications 05/0111/03/2020 PURE HYPERCHOLESTEROLEM 11/27/19 14 DIABETES MELLITUS TYPE II-UNCOMPL 11/26/2013 documented as of this encounter (statuses as of 11/23/2021) [facility] History of Past illness Narrative* Problem Noted Date Resolved Date Hypertensive kidney disease with stage 3 chronic kidney disease 11/03/2020 11/05/2020 Diabetes mellitus with renal complications 05/0111/03/2020 PURE HYPERCHOLESTEROLEM 11/27/19 14 DIABETES MELLITUS TYPE II-UNCOMPL 11/26/2013 documented as of this encounter (statuses as of 12/16/2021) [facility] History of Past illness Narrative* Problem Noted Date Resolved Date Hypertensive kidney disease with stage 3 chronic kidney disease 11/03/2020 11/05/2020 Diabetes mellitus with renal complications 05/0111/03/2020 PURE HYPERCHOLESTEROLEM 11/27/19 14 DIABETES MELLITUS TYPE II-UNCOMPL 11/26/2013 documented as of this encounter (statuses as of 01/11/2022) [facility] History of Past illness Narrative* Problem Noted Date Resolved Date Hypertensive kidney disease with stage 3 chronic kidney disease 11/03/2020 11/05/2020 Diabetes mellitus with renal complications 05/0111/03/2020 PURE HYPERCHOLESTEROLEM 11/27/19 14 DIABETES MELLITUS TYPE II-UNCOMPL 11/26/2013 documented as of this encounter (statuses as of 01/11/2022) [facility] of Past illness Narrative* Problem Noted Date Resolved Date Hypertensive kidney disease with stage 3 chronic kidney disease 11/03/2020 11/05/2020 Diabetes mellitus with renal complications 05/0111/03/2020 PURE HYPERCHOLESTEROLEM 11/27/19 14 DIABETES MELLITUS TYPE II-UNCOMPL 11/26/2013 documented as of this encounter (statuses as of 03/02/2022) [facility] History of Past illness Narrative* Problem Noted Date Resolved Date Hypertensive kidney disease with stage 3 chronic kidney disease 11/03/2020 11/05/2020 Diabetes mellitus with renal complications 05/0111/03/2020 PURE HYPERCHOLESTEROLEM 11/27/19 14 DIABETES MELLITUS TYPE II-UNCOMPL 11/26/2013 documented as of this encounter (statuses as of 03/02/2022) [facility] History of Past illness Narrative* Problem Noted Date Resolved Date Hypertensive kidney disease with stage 3 chronic kidney disease 11/03/2020 11/05/2020 Diabetes mellitus with renal complications 05/0111/03/2020 PURE HYPERCHOLESTEROLEM 11/27/19 14 DIABETES MELLITUS TYPE II-UNCOMPL 11/26/2013 documented as of this encounter (statuses as of 04/11/2022) [facility] of Past illness Narrative* Problem Noted Date Resolved Date Hypertensive kidney disease with stage 3 chronic kidney disease 11/03/2020 11/05/2020 Diabetes mellitus with renal complications 05/0111/03/2020 PURE HYPERCHOLESTEROLEM 11/27/19 14 DIABETES MELLITUS TYPE II-UNCOMPL 11/26/2013 documented as of this encounter (statuses as of 05/27/2022) [facility] of Past illness Narrative* Problem Noted Date Diagnosed Date Resolved Date Hypertensive kidney disease with stage 3 chronic kidney disease 11/03/2020 11/05/2020 Diabetes mellitus with renal complications 05/01/2014 11/03/2020 PURE HYPERCHOLESTEROLEM 11/12 DIABETES MELLITUS TYPE II-UNCOMPL 11/26/2013 documented as of this encounter (statuses as of 11/25/2022) [facility] of Past illness Narrative* Problem Noted Date Diagnosed Date Resolved Date Hypertensive kidney disease with stage 3 chronic kidney disease 11/03/2020 11/05/2020 Diabetes mellitus with renal complications 05/01/2014 11/03/2020 PURE HYPERCHOLESTEROLEM 11/12 DIABETES MELLITUS TYPE II-UNCOMPL 11/26/2013 documented as of this encounter (statuses as of 04/08/2023) [facility] of Past illness Narrative* Problem Noted Date Diagnosed Date Resolved Date Hypertensive kidney disease with stage 3 chronic kidney disease 11/03/2020 11/05/2020 Diabetes mellitus with renal complications 05/01/2014 11/03/2020 PURE HYPERCHOLESTEROLEM 11/12 DIABETES MELLITUS TYPE II-UNCOMPL 11/26/2013 documented as of this encounter (statuses as of 04/08/2023) [facility] HealthDis[facility] summary Author Pieter Morgan [facility] Note Date/Time August 02, 2024 1:1 6pm [facility] Medical Records Department [address] [place] [id number] Emergency Department Summary 08/02/24 MR#: [id number] Acct: [id number] Name: LINDSAY ACUNA Rep #:[id number] : [...] the EMR. states they returned home from [facility] about 1.5-2 weeks ago, and they both had colds. He is better, but she is "on round 2." [facility] Medical History Paroxysmal atrial fibrillation with RVR [...] 71.4 H Lymph % (Auto) 17.9 L [place] % (Auto) 8.9 Eos % (Auto) 1.0 [...] on 08/02/2024 at 1250 hours. Reading Location: [facility] Head/Neck CTA 08/02/24 12:24 IMPRESSION: RIGHT CAROTID: Mild degree of calcific plaque at the origin of the right internal carotid artery. LEFT CAROTID: Mild degree of calcific plaque at the origin of the left internal carotid artery. VERTEBRALS: Dominant left vertebral artery INTRACRANIAL: Unremarkable Other impression: No significant stenosis seen. 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 Call [facility] ([phone]) or report to the closest Emergency Room. Call 911 if necessary. 08/02/24 1316 <Electronically signed by Pieter Morgan MD> Cosigner Signature (if applicable): CC: Dr. Kameron Caruso MD ~ Signed [facility] Work Phone: Evaluation note* Diagnosis Need for vaccination- Primary Need for prophylactic vaccination and inoculation against unspecified single disease documented in this encounter [facility]* Diagnosis Type 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, unspecified CKD stage, unspecified whether termite control representative insulin use (HCC)- Primary Essential hypertension, benign Hyperlipidemia, unspecified hyperlipidemia type Stage 3b chronic kidney disease (HCC) Hypothyroidism, unspecified type Memory loss documented in this encounter [facility] note* Diagnosis Type 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, unspecified CKD stage, unspecified whether residential insulin use (HCC)- Primary documented in this encounter [facility] note* Diagnosis Hyperlipidemia, unspecified hyperlipidemia type Essential hypertension, benign Type 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, unspecified CKD stage, unspecified whether termite control representative insulin use (HCC) documented in this encounter [facility] note* Diagnosis Type 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, unspecified CKD stage, unspecified whether termite control representative insulin use (HCC) Essential hypertension, benign Hyperlipidemia, unspecified hyperlipidemia type documented in this encounter [facility] note* Diagnosis Acute midline low back pain without sciatica- Primary documented in this encounter [facility] note* Diagnosis Type 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, unspecified CKD stage, unspecified whether termite control representative insulin use (HCC)- Primary documented in this 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* Diagnosis Allergic contact dermatitis due to plant- Primary Contact dermatitis and other eczema due to plants (except food) documented in this encounter [facility] note* Diagnosis Rash- Primary Rash and other nonspecific skin eruption [facility] Diagnosis Type 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, unspecified CKD stage, unspecified whether residential insulin use (HCC)- Primary Essential hypertension, benign Chronic kidney disease, stage 3a (HCC) Hyperlipidemia, unspecified hyperlipidemia type Hypothyroidism, unspecified type Edema of left lower leg Memory loss documented in this encounter [facility] note* Diagnosis Essential hypertension, benign- Primary Type 2 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, without long-term current use of insulin (HCC) Chronic kidney disease, stage 3a (HCC) Hyperlipidemia, unspecified hyperlipidemia type Hypothyroidism, unspecified type Edema of left lower leg Memory loss Urinary incontinence, unspecified type Irregular heart beat Cardiac dysrhythmia, unspecified Atrial fibrillation, unspecified type (HCC) documented in this encounter [facility] note* Diagnosis Atrial fibrillation, unspecified type (HCC)- Primary Hypothyroidism, unspecified type Need for malaria prophylaxis documented in this encounter [facility] note* Diagnosis History of traveler's diarrhea- Primary Personal history of other diseases of digestive system documented in this encounter [facility] note* Diagnosis History of traveler's diarrhea Personal history of other diseases of digestive system documented in this encounter [facility] noteNo assessment information availableWFayette [facility] Work Phone: Evaluation note* Diagnosis Acute ischemic right MCA stroke- Primary Unspecified cerebral artery occlusion with cerebral infarction Cerebrovascular accident (CVA), unspecified mechanism Renal disease (High Serum Creatinine) Unspecified disorder of kidney and ureter Type 2 diabetes mellitus with hyperglycemia Type II or unspecified type diabetes mellitus without mention of complication, not stated as uncontrolled [facility] N[facility] No data available for this section [facility] Reason for referral (narrative)* Outpatient Procedure (Routine) - Pending Review Specialty Diagnoses / Procedures Referred By Qiana almodovar Referred To Contact [facility] [employer] Diagnoses Atrial fibrillation, unspecified type (HCC) Procedures ECHO ECHO TTHRC R-T 2D W/WOM-MODE COMPL SPEC&COLR D Kameron Caruso MD [address] [place] [address] [facility] [address] [address] Referral ID Status Reason Start Date Expiration Date Visits Requested Visits Authorized [id number] Pending Review Auto-Generat ed Referral 05/31/2024 05/31/2025 1 1 * Outpatient Procedure (Routine) - New Request Specialty Diagnoses / Procedures Referred By Qiana almodovar Referred To Contact [facility] [employer] Diagnoses Irregular heart beat Procedures ECG COMPLETE ECG ROUTINE ECG W/LEAST 12 LDS W/I&R Kameron Caruso MD [address] [place] [address] [facility] [address] [place] [address] Referral ID Status Reason Start Date Expiration Date Visits Requested Visits Authorized [id number] New Request Auto-Generat ed Referral 05/31/2024 05/31/2025 1 1 [facility] for referral (narrative)No reason for referral information availableWFayette County Memorial Hospital Work Phone: Reason for visit Narrative* Auth/Cert Specialty Diagnoses / Procedures Referred By Contac t Referred To Contact Diagnoses Acute ischemic right MCA stroke Cerebrovascular Accident (Level A Ishemic Stroke) Prema Rodgers MD [address] [place] [address] Phone: tel: fax: [facility] [address] [place] [address] Referral ID Status Reason Start Date Expiration Date Visits Re quested Visits Authorized [id number] 1 1 [facility] Summary Purpose Family History No Family History Records Found Relationship Condition Age at Onset Recorded Date/T monse mother Diabetes mellitus Unknown Hypertension Unknown Psychiatric disorder Unknown grandmother Malignant neoplasm Unknown sister Disorder of thyroid Unknown Advance Directives No Advanced Directives Records FoundDocuments on File Type Date 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 Advance Directives and 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 Will 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 No August 02, 2024 12:46pm Date Activated Date Inactivated Comments 08/02/2024 5:50 PM Discharge Instructions * Instructions* Prema Arellano RN - 01/09/2019 Colonoscopy: What to expect [...] patient had a polyp identified by on {time:95471}. Biopsies {are/were w not:9034} taken. The patient's usual bowel pattern is {bowel pattern:90170}. Bowel movements {bowel changes:72258} . {abd pain:35739}. The patient has noted{bleeding with BM:11169}. The patient {does/do/not:24645} have a family history of colon polyps. The patient {does/do/not:61763} have a family history of colon cancer. [...] section and content) DATE CREATED AUTHOR 08/31/2018 [facility] DATE CREATED AUTHOR AUTHOR'S ORGANIZ ATION 10/18/2019 [facility] DATE CREATED AUTHOR AUTHOR'S ORGANIZ ATION 08/04/2024 [facility] DATE CREATED AUTHOR AUTHOR[facility]S ORGANIZ ATION [facility] DATE CREATED AUTHOR AUTHOR'S ORGANIZ ATION 08/24/2024 [facility] DATE CREATED AUTHOR AUTHOR'S ORGANIZ ATION 09/01/2024 [facility] DATE CREATED AUTHOR AUTHOR'S ORGANIZ ATION 10/13/2024 [facility] DATE CREATED AUTHOR AUTHOR'S ORGANIZ ATION 10/26/2024 [facility] Source Comments (unrecognize d section and content) In the event this informatio n is protected by the Federal Confidentiality of Alcohol and Drug Abuse Patient Records regulations: The Federal rules restrict any use of the information to criminally investigate or prosecute any alcohol or drug abuse patient.[facility] HealthIn the event this information is protected by the Federal Confidentiality of Alcohol and Drug Abuse Patient Records regulations: The Federal rules restrict any use of the information to criminally investigate or prosecute any alcohol or drug abuse patient.[facility] HealthIn the event this information is protected by the Federal Confidentiality of Alcohol and Drug Abuse Patient Records regulations: The Federal rules restrict any use of the information to criminally investigate or prosecute any alcohol or drug abuse patient.[facility] HealthIn the event this information is protected by the Federal Confidentiality of Alcohol and Drug Abuse Patient Records regulations: The Federal rules restrict any use of the information to criminally investigate or prosecute any alcohol or drug abuse patient.[facility] the event this information is protected by the Federal Confidentiality of Alcohol and Drug Abuse Patient Records regulations: The Federal rules restrict any use of the information to criminally investigate or prosecute any alcohol or drug abuse patient.[facility] HealthIn the event this information is protected by the Federal Confidentiality of Alcohol and Drug Abuse Patient Records regulations: The Federal rules restrict any use of the information to criminally investigate or prosecute any alcohol or drug abuse patient.[facility] HealthIn the event this information is protected by the Federal Confidentiality of Alcohol and Drug Abuse Patient Records regulations: The Federal rules restrict any use of the information to criminally investigate or prosecute any alcohol or drug abuse patient.[facility] HealthIn the event this information is protected by the Federal Confidentiality of Alcohol and Drug Abuse Patient Records regulations: The Federal rules restrict any use of the information to criminally investigate or prosecute any alcohol or drug abuse patient.[facility] HealthIn the event this information is protected by the Federal Confidentiality of Alcohol and Drug Abuse Patient Records regulations: The Federal rules restrict any use of the information to criminally investigate or prosecute any alcohol or drug abuse patient.[facility] HealthIn the event this information is protected by the Federal Confidentiality of Alcohol and Drug Abuse Patient Records regulations: The Federal rules restrict any use of the information to criminally investigate or prosecute any alcohol or drug abuse patient.[facility] HealthIn the event this information is protected by the Federal Confidentiality of Alcohol and Drug Abuse Patient Records regulations: The Federal rules restrict any use of the information to criminally investigate or prosecute any alcohol or drug abuse patient.[facility] HealthIn the event this information is protected by the Federal Confidentiality of Alcohol and Drug Abuse Patient Records regulations: The Federal rules restrict any use of the information to criminally investigate or prosecute any alcohol or drug abuse patient.[facility] HealthIn the event this information is protected by the Federal Confidentiality of Alcohol and Drug Abuse Patient Records regulations: The Federal rules restrict any use of the information to criminally investigate or prosecute any alcohol or drug abuse patient.[facility] HealthIn the event this information is protected by the Federal Confidentiality of Alcohol and Drug Abuse Patient Records regulations: The Federal rules restrict any use of the information to criminally investigate or prosecute any alcohol or drug abuse patient.[facility] HealthIn the event this information is protected by the Federal Confidentiality of Alcohol and Drug Abuse Patient Records regulations: The Federal rules restrict any use of the information to criminally investigate or prosecute any alcohol or drug abuse patient.[facility] HealthIn the event this information is protected by the Federal Confidentiality of Alcohol and Drug Abuse Patient Records regulations: The Federal rules restrict any use of the information to criminally investigate or prosecute any alcohol or drug abuse patient.[facility] HealthIn the event this information is protected by the Federal Confidentiality of Alcohol and Drug Abuse Patient Records regulations: The Federal rules restrict any use of the information to criminally investigate or prosecute any alcohol or drug abuse patient.[facility] HealthIn the event this information is protected by the Federal Confidentiality of Alcohol and Drug Abuse Patient Records regulations: The Federal rules restrict any use of the information to criminally investigate or prosecute any alcohol or drug abuse patient.[facility] HealthIn the event this information is protected by the Federal Confidentiality of Alcohol and Drug Abuse Patient Records regulations: The Federal rules restrict any use of the information to criminally investigate or prosecute any alcohol or drug abuse patient.[facility] HealthIn the event this information is protected by the Federal Confidentiality of Alcohol and Drug Abuse Patient Records regulations: The Federal rules restrict any use of the information to criminally investigate or prosecute any alcohol or drug abuse patient.[facility] HealthIn the event this information is protected by the Federal Confidentiality of Alcohol and Drug Abuse Patient Records regulations: The Federal rules restrict any use of the information to criminally investigate or prosecute any alcohol or drug abuse patient.[facility] HealthIn the event this information is protected by the Federal Confidentiality of Alcohol and Drug Abuse Patient Records regulations: The Federal rules restrict any use of the information to criminally investigate or prosecute any alcohol or drug abuse patient.[facility] HealthIn the event this information is protected by the Federal Confidentiality of Alcohol and Drug Abuse Patient Records regulations: The Federal rules restrict any use of the information to criminally investigate or prosecute any alcohol or drug abuse patient.[facility] HealthIn the event this information is protected by the Federal Confidentiality of Alcohol and Drug Abuse Patient Records regulations: The Federal rules restrict any use of the information to criminally investigate or prosecute any alcohol or drug abuse patient.[facility] HealthIn the event this information is protected by the Federal Confidentiality of Alcohol and Drug Abuse Patient Records regulations: The Federal rules restrict any use of the information to criminally investigate or prosecute any alcohol or drug abuse patient.[facility] HealthIn the event this information is protected by the Federal Confidentiality of Alcohol and Drug Abuse Patient Records regulations: The Federal rules restrict any use of the information to criminally investigate or prosecute any alcohol or drug abuse patient.[facility] HealthIn the event this information is protected by the Federal Confidentiality of Alcohol and Drug Abuse Patient Records regulations: The Federal rules restrict any use of the information to criminally investigate or prosecute any alcohol or drug abuse patient.[facility] HealthIn the event this information is protected by the Federal Confidentiality of Alcohol and Drug Abuse Patient Records regulations: The Federal rules restrict any use of the information to criminally investigate or prosecute any alcohol or drug abuse patient.[facility] Reason for Visit (unrecogniz ed section and [...] Comments request for medication Reason Comments [facility] requesting verbal agree to f [facility] Care Teams (unrecognized sec tion and content) Weight Yardage Checker Relationship Specialty Start Date End Date Kameron Caruso MD [address] [place] [address] PCP - General Family Practice 09/21/15 Weight Yardage Checker Relationship Specialty Start Date End Date Kameron Caruso MD [address] [place] [address] PCP - General Family Practice 09/21/15 Weight Yardage Checker Relationship Specialty Start Date End Date Kameron Caruso MD [address] [facility] [place] [address] PCP - General Family Practice 09/21/15 Weight Yardage Checker Relationship Specialty Start Date End Date Kameron Caruso MD [address] [facility] [place] [address] PCP - General Family Practice 09/21/15 Weight Yardage Checker Relationship Specialty Start Date End Date Kameron Caruso MD [address] [place] [address] PCP - General Family Practice 09/21/15 Weight Yardage Checker Relationship Specialty Start Date End Date Kameron Caruso MD [address] [place] [address] PCP - General Family Practice 09/21/15 Weight Yardage Checker Relationship Specialty Start Date End Date Kameron Caruso MD [address] [place] [address] PCP - General Family Medicine 09/21/15 Weight Yardage Checker Relationship Specialty Start Date End Date Kameron Caruso MD [address] [place] [address] PCP - General Family Medicine 09/21/15 Weight Yardage Checker Relationship Specialty Start Date End Date Kameron Caruso MD [address] [facility] [place] [address] PCP - General Family Medicine 09/21/15 Weight Yardage Checker Relationship Specialty Start Date End Date Kameron Caruso MD [address] [place] [address] PCP - General Family Medicine 09/21/15 Weight Yardage Checker Relationship Specialty Start Date End Date Kameron Caruso MD [address] [place] [address] PCP - General Family Medicine 09/21/15 Weight Yardage Checker Relationship Specialty Start Date End Date Kameron Caruso MD [address] [place] [address] PCP - General Family Medicine 09/21/15 Weight Yardage Checker Relationship Specialty Start Date End Date Kameron Caruso MD [address] [place] [address] PCP - General Family Medicine 09/21/15 Weight Yardage Checker Relationship Specialty Start Date End Date Kameron Caruso MD [address] [place] [address] PCP - General Family Medicine 09/21/15 Weight Yardage Checker Relationship Specialty Start Date End Date Kameron Caruso MD [address] [place] [address] PCP - General Family Medicine 09/21/15 Weight Yardage Checker Relationship Specialty Start Date End Date Kameron Caruso MD [address] [place] [address] PCP - General Family Medicine 09/21/15 Emma Sotomayor, DIRECTOR PRISON.ORGANIC SECTION TECHNICAL LEAD [address] [place] [address] Head Esthetician Family Medicine 04/21/24 Mj Glover, DIRECTOR PRISON.ORGANIC SECTION TECHNICAL LEAD [address] [place] [address] [facility] 04/30/24 Weight Yardage Checker Relationship Specialty Start Date End Date Kameron Caruso MD [address] [place] [address] PCP - General Family Medicine 09/21/15 Emma Sotomayor, DIRECTOR PRISON.ORGANIC SECTION TECHNICAL LEAD [address] [place] [address] Head Esthetician Family Medicine 04/21/24 Mj Glover DIRECTOR PRISON.ORGANIC SECTION TECHNICAL LEAD [address] [place] [address] [facility] 04/30/24 Weight Yardage Checker Relationship Specialty Start Date End Date Kameron Caruso MD [address] [place] [address] PCP - General Family Medicine 09/21/15 Emma Sotomayor, DIRECTOR PRISON.ORGANIC SECTION TECHNICAL LEAD [address] [place] [address] [facility] 04/21/24 Mj Glover DIRECTOR PRISON.ORGANIC SECTION TECHNICAL LEAD [address] [place] [address] [facility] 04/30/24 Weight Yardage Checker Relationship Specialty Start Date End Date Kameron Caruso MD [address] [place] [address] PCP - General Family Medicine 09/21/15 Emma Sotomayor DIRECTOR PRISON.ORGANIC SECTION TECHNICAL LEAD [address] [place] [address] Head Esthetician Family Medicine 04/21/24 Mj Glover APRN.ORGANIC SECTION TECHNICAL LEAD [address] [place] [address] Head Esthetician Family Medicine 04/30/24 Weight Yardage Checker Relationship Specialty Start Date End Date Kameron Caruso MD [address] [place] [address] PCP - General Family Medicine 09/21/15 Emma Sotomayor APRN.ORGANIC SECTION TECHNICAL LEAD [address] [place] [address] Head Esthetician Family Medicine 04/21/24 Mj Glover APRN.ORGANIC SECTION TECHNICAL LEAD [address] [place] [address] Head Esthetician Family Medicine 04/30/24 Weight Yardage Checker Relationship Specialty Start Date End Date Kameron Caruso MD [address] [place] [address] PCP - General Family Medicine 09/21/15 Emma Sotomayor APRN.ORGANIC SECTION TECHNICAL LEAD [address] [place] [address] Head Esthetician Family Medicine 04/21/24 Mj Glover APRN.ORGANIC SECTION TECHNICAL LEAD [address] [place] [address] Head Esthetician Family Medicine 04/30/24 Weight Yardage Checker Relationship Specialty Start Date End Date Kameron Caruso MD [address] [place] [address] PCP - General Family Medicine 09/21/15 Emma Sotomayor APRN.ORGANIC SECTION TECHNICAL LEAD [address] [place] [address] Head Esthetician Family Medicine 04/21/24 Mj Glover APRN.ORGANIC SECTION TECHNICAL LEAD [address] [place] [address] Head Esthetician Family Medicine 04/30/24 Team Status: Active Member Role Status Dates Dr. Kameron Caruso MD Primary Care Provider Active Team Status: Inactive Member Role Status Dates Dr. Kameron Caruso MD Primary Care Provider Active Start: August 02, 2024 End: August 02, 2024 Dr. Pieter Morgan MD Emergency Provider Active Start: August 02, 2024 End: August 02, 2024 Weight Yardage Checker Relationship Specialty Start Date End Date Kameron Caruso MD [address] [place] [address] PCP - General Family Medicine 08/03/24 Weight Yardage Checker Relationship Specialty Start Date End Date Kameron Caruso MD [address] [place] [address] PCP - General Family Medicine 09/21/15 Emma Sotomayor APRN.ORGANIC SECTION TECHNICAL LEAD [address] [place] [address] Head Esthetician Family Medicine 04/21/24 Mj Glover APRN.ORGANIC SECTION TECHNICAL LEAD [address] [place] [address] Head Esthetician Family Medicine 04/30/24 Team Status: Inactive Member [...] HOURS, First dose (after last modification) on 08/11/24 at 2100, Until Discontinued, Due to the rapid onset of action of apixaban, no overlap is needed with other anticoagulants (e.g. enoxaparin, heparin)., Indications: Atrial Fibrillation 09 (Given - Provider: Shanna Palmer RN) apixaban [...] 1001 (Given - Provider: Eneida Cespedes RN) 09 (Given - Provider: Robson Steel RN) Lisinopril (PRINIVIL) tablet 10 mg 10 mg, PEG Tube, DAILY, First dose (after last modification) on Mon08/10/24 at 0900, Until Discontinued 903 (Given - Provider: Shanna Palmer RN) 0849 (Given - Provider: Eneida Cespedes RN) 08 [...] modification) on Mon08/09/24 at 2100, Until Discontinued 09 (Given - Provider: Shanna Palmer RN)194 (Given - Provider: Shaila Eng RN) 0849 (Given - Provider: Eneida Cespedes RN)2040 (Given - Provider: Shanna Catalan RN) 08 (Given - Provider: Robson Steel RN) Polyethylene glycol (MIRALAX) packet 17 g(Linked Group 2) 17 g, PEG Tube, EVERY 12 HOURS, First dose (after last modification) on Mon08/09/24 at 2100, Until Discontinued 904 (Not Given - Provider: Shanna Palmer RN - Reason: Patient with symptoms)192 (Not Given - Provider: Shaila Eng RN [...] Shanna Palmer RN - Reason: Patient with symptoms)192 (Not Given - Provider: Shaila Eng RN [...] RN) 0113 (Given - Provider: Shaila Eng, RN)0533 (Given - Provider: Shaila Eng, RN) Water liquid (free water) 150 mL [...] Tube, EVERY 12 HOURS NEEDED, Starting on Mon08/11/24 at 2035, Until Diane 08/15/24 at 1259, [...] Starting on 08/04/24 at 1154, Until Diane 4 at 1259, SBP > 160 mmHg with HR <60 bpm, Use as initial dose. Higher dose may be administered if lower dose was previously documented as ineffective 10 minutes after administration and did not result in adverse effects (HR>90). hydrALAZINE (APRESOLINE) injection 20 mg(Linked Group 5) 20 mg, Intravenous, EVERY 1 HOUR NEEDED, Starting on 08/04/24 at 1154, Until Diane 4 at 1259, SBP > 160 mmHg with [...] glucose is greater than 200mg/dl, then notify supervisor tank house. And BLOOD GLUCOSE (POC DEVICE) (CANCELED) Routine, [...] 50% needed, contact pharmacy or obtain from [facility] cart ++ And glucose (GLUTOSE) 40 % [...] at 1301, Until Specified, Who to Notify: Shoe Repairer Apprentice, For all Blood Glucose LESS THAN 80 mg/dl, notify Shoe Repairer Apprentice after treatment per Hypoglycemia in Non- Adults [...] 1 HOUR NEEDED, Starting on Mon08/04/24 at 1153, Until Diane 08/15/24 at 1259, [...] 1 HOUR NEEDED, Starting on Mon08/04/24 at 1153, Until Diane 08/15/24 at 1259, [...] BE BASED ON THE PRIMARY CLINICAL RECORDS. [employer] [facility]. provides no warranty or guarantee of the accuracy or completeness of information in this document.
[2024-10-29 08:46] LABS: Absolute Lymphocyte Count 2.69 X10^3/uL (0.83-4.51); Absolute Neutrophil Count 4.5 X10^3/uL (2.0-7.7); Basophil# 0.06 X10^3/uL; Basophil% 0.7 % (0-1); Eosinophil# 0.17 X10^3/uL; Eosinophils% 2.1 % (0-5); Hematocrit 37.8 % (37-47); Hemoglobin 12.2 g/dL (12.0-15.0); Lymphocyte # 2.69 X10^3/ul (0.83-4.51); Lymphocyte % 32.6 % (19-41); Mean Corp Hgb Conc 32.3 g/dL (32-36); Mean Corpuscular Hgb 29.8 pg (27.0-32.0); Mean Corpuscular Volume 92.2 fL (81-99); Mean Platelet Vol. 11.1 fl (6.2-12.0); Monocyte# 0.82 X10^3/uL; Monocyte% 9.9 % (0-10); NRBC Flagged by Analyzer 0 % (0-5); Neutrophil # 4.48 X10^3/uL (2.7-7.7); Neutrophil % 54.3 % (47-70); Platelet Count 283 K/mm3 (150-450); RBC Distribution Width CV 13.6 % (11.6-14.6); RBC Distribution Width SD 46.6 fl (35.1-43.9); White Blood Count 8.3 K/mm3 (4.4-11.0)
[2024-10-29 09:11] LABS: Anion Gap 11 (5-15); BUN 24 mg/dL (4-19); BUN/Creat Ratio 25.2 RATIO (10-20); Calcium,Total 9.5 mg/dL (7.6-11.0); Carbon Dioxide 25.7 mmol/L (21.0-32.0); Chloride 102 mmol/L (98-108); Creatinine, Serum 0.97 mg/dL (0.70-1.20); EST Glomerular Filtration Rate 59 (>60); Glucose 74 mg/dL (70-99); Potassium 3.9 mmol/L (3.3-5.1); Sodium Level 138 mmol/L (133-145)
== END ==
LOC: OLS.WHLTCC 05:00
PROVIDERS: PCP Family Medicine; Visit Provider Internal Medicine
DX: E11.9 Type 2 diabetes mellitus without complications (principal); I69.354 Hemiplegia and hemiparesis following cerebral infarction affecting left non-dominant side; I69.391 Dysphagia following cerebral infarction
CPT/HCPCS: 36415; 80048; 85025

== ENCOUNTER → 2024-11-05 05:00 | Outpatient (REF) | payer MEDICARE, SELFPAY ==
--- OUTSIDE RECORDS SUMMARY | 2024-11-05 04:43 | XMS RPT_ITS | CCD ---
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 Kameron Caruso MD Primary Care Provider [phone] Dr. Pieter Morgan MD Emergency Provider Kameron Caruso MD Primary Care Provider CHRISTOS VOSS Attending Unavailable CONSULT, GASTROENTEROLOGY Consulting PIETER Wolf Referring Unavailable PREMA RAMOS Admitting Unavailable KAMERON CARUSO Primary Care Unavailable BITTAR, RICHARD Referring Unavailable MADONNA, LUCINDA S Attending Unavailable MADONNA, LUCINDA S Admitting Unavailable Tannhof DIRECTOR OF 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.Emma TUCKER Unavailable Unavail able KAMERON CARUSO Referring [...] LAWSON, DR MELO Primary Care Physician [phone] Cathy LAWSON, Dr. Stapleton Attending Provider Safia Ruelas MD Attending Provider UnavailDr. Kameron Marquez MD Referring Provider Makayla LAWSON, Dr. Barker Attending Provider [phone] DR KAMERON CARUSO MD Primary Care Unavailab SILVINO Monzon DO Admitting Unavailable SILVINO HA DO Attending Unavailable BRYON LAWSON, DR REECE Consulting Unavailab NANDO Lofton DO Consulting Unavailable SUDARSHAN WE[employer] HOUSE ATTENDANT, AMI Hwang Consulting Unavailjair GIBSON PhD, MATTHEW Zamudio Consulting Unavailable Kameron Caruso Primary Care Unavailable Enricoe OLS, Efewongbe Attending Unavailabl Kameron Jolley Primary Care Unavailable Cheoghe OLS, Efewongbe Attending Unavailabl e Kameron Caruso Primary Care Unavailable Oleghe OLS, Efewongbe Attending Unavailabl e Kameron Caruso Primary Care Unavailable Enricoe OLS, Efewongbe Attending Unavailabl Kameron Jolley Primary Care Unavailable Oleghe OLS, Efewongbe Attending Unavailabl e Oleghe OLS, Efewongbe Referring Unavailabl e Kameron Caruso Primary Care Unavailable Oleghe OLS, Efewongbe Attending Unavailabl e Oleghe OLS, Efewongbe Attending UnavailKameron Felix Primary Care Unavailable Kameron Caruso Primary Care Unavailable Bret Snyder NP [facility]ending [facility] Un[facility] Mj Benavides Attending Unavailable [facility], Kameron Referring Unavailable [facility] Primary [facility] Unavailable Oleghe, Efewongbe Attending Unavailable Oleghe OLS, Efewongbe Attending Unavailabl e [facility] Primary Care Unavailable Oleghe OLS, Efewongbe Attending Unavailabl e [facility] Primary Care Unavailable Pieter Morgan Attending Unavailable [facility] Primary Care Unavailable [facility] Primary Care Unavailable Oleghe OLS, Efewongbe Attending Unavailabl e Allergies Allergy Classification Reported Allergen(s) Allergy Type Date of Onset Reaction(s) Facility (2 sources) Sulfonamides (Antibiotic) Propensity to adverse reactions to drug 6 Other (See Comments) [place], [place] (2 sources) Other Propensity to adverse reactions 6 Shortness Of Breath [place], [place] (20 sources) Benzocaine; Translations: [BENZOCAINE] Drug Allergy 6 Rash [facility] Work Phone: (20 sources) Cocaine; Translations: [COCAINE] Drug Allergy 9 Inverted T waves [facility] Work Phone: (20 sources) Sulfonamides (Antibiotic); Translations: [SULFA (SULFONAMIDE ANTIBIOTICS)] Propensity to adverse reactions 6 Intolerance [facility] Work Phone: (20 sources) Perfumes; Translations: [PERFUMES] Propensity to adverse reactions 6 Shortness of Breath [facility] Work Phone: (2 sources) Sulfonamides (Antibiotic) Allergy to substance 5 Unknown [facility] (4 sources) perfume; Translations: [perfume] Allergy to substance 5 Shortness of breath [facility] (1 source) Cocaine; Translations: [cocaine nasal] Drug Allergy [facility] (1 source) Codeine; Translations: [codeine] Drug Allergy Pharyngeal swelling (finding) [facility] (1 source) Sulfonamide; Translations: [sulfa drugs] Drug allergy [facility] (1 source) Benzocaine Drug Allergy 5 [facility] (1 source) Cocaine Drug Allergy 5 [facility] (1 source) Sulfonamides (Antibiotic) Drug allergy (disorder) 5 [facility] Medications Current Medications Medication Drug Class(es) [...] End: 08-15-2024 Start: 08-03-2024 End: 08-09-2024 Start: 02-19-2025 take 1 tablet by christ th at [...] disease, unspecified CKD stage, unspecified whether termite treater helper insulin use (HCC) , Type 2 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, without long-term current use of insulin (HCC) TAKE 4 TABLETS BY MOUTH ONCE DAILY WITH BREAKFAST 360 tablet 3 01/11/2022 Active Start: 10-24-2018 metFORMIN (GLU COPHAGE-XR) 500 MG extended release tablet Take 2,000 mg by mouth 0 10/24/2018 Active Comment on above: Take 4 tablets by mo uth daily with breakfast. TAKE 4 TABLETS BY [...] Comment on above: Take 1 tablet by [facility] once daily. Start medication 2 days prior [...] disease, unspecified CKD stage, unspecified whether termite treater helper insulin use (HCC) Take 1 tablet by [...] 08-15-2024 Start: 08-04-2024 End: 08-09-2024 triamcinolone acetonide 0.31490 mg/mg topical ointment (3 sources) Corticosteroid Start: [...] is greater than 200mg/dl, then notify house manager. [Order 2 End] [Order 3 Start] Name: [...] pharmacy or obtain from crash cart ++ [Order 5 End] [Order 6 [...] at 1301, Until Specified, Who to Notify: [employer] Employee, For all Blood Glucose LESS THAN 80 mg/dl, notify [employer] Employee after treatment per Hypoglycemia in Non- Adults [...] Coronary arteriosclerosis; Translations: [Atherosclerotic heart disease of [place] coronary artery without angina pectoris] Onset: 5 [...] aftercare (2 sources) 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; Translations: [detention (current) use of anticoagulants] 08-02-2024 Episodic Other aftercare (1 source) detention (current) use of aspirin; Translations: [detention (current) use of aspirin] Onset: 5 Episodic Other aftercare (1 source) ferry terminal agent (current) use of anticoagulants; Translations: [detention (current) use of anticoagulants] Onset: 5 Episodic Other aftercare (1 source) detention (current) use of oral hypoglycemic drugs; Translations: [ferry terminal agent (current) use of oral hypoglycemic drugs] Onset: 5 Episodic Other circulatory disease (1 source) Hypotension, unspecified; Translations: [Hypotension, unspecified] Onset: 5 Episodic Other connective tissue disease (1 source) Pain in left arm; Translations: [Pain in left arm] Onset: 5 Episodic Other diseases of bladder and urethra (1 source) Overactive bladder; Translations: [Overactive bladder] Onset: 5 Chronic Other diseases of kidney and ureters [...] source) Gastrostomy status; 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 Mj Benavides MD Status: DEP A MB Ordering Dr: Mj Benavides MD Date: 10/02/24 Location: [facility] Sex: F C Admitted: [facility]/12 Lead EKG performed by [facility] ECG Report Interpretation ---Atrial fibrillation -irregular conduction -Old anterior infarct. ABNORMAL Electronically signed on 10/02/2024 at 16:06 by Mj Benavides [employer] Software Version [id number] 10/02/24 1608 Date Mj Benavides MD CC: Dr. Kameron Caruso MD Date Dictated: 10/02/24920 Date Transcribed: 10/02/24920 Junior Qa Analyst: CO Signed Normal [facility] Cardiology Visit Reporton Cardiology Visit Report [facility] [address] [place] [address] OFFICE VISIT Date of Service: 10/02/24 MR#: [id number] Acct: [id number] Name: LINDSAY ACUNA Rep #: [id number] : 1945 Provider: Dr. Mj Benavides MD Age/Sex: 78/F Location: [facility] Status: Signed HPI HPI History of [...] d/t W/C bound Intake Visit Reasons: AFIB ([facility] Representative Required: No Accompanied by: Significant Other Is [...] you fallen in the past year?: Yes [facility] Medical History Acute ischemic right MCA stroke [...] normal, nasal (more content not included)... Normal [facility] Absolute lymphocyte countOrd ered By: Safia Ruelas on 10-01-2024 Lymphocytes Auto (Unsp spec) [#/Vol] 2.45 10*3/uL 0.83-4.51 [facility] Absolute neutrophil countOrd ered By: Safia Ruelas on 10-01-2024 Neutrophils (Bld) [#/Vol] 6.5 10*3/uL 2.0-7.7 [facility] Anion gap in Serum or Plasma Ordered By: Safia Ruelas on 10-01-2024 Anion gap [Moles/Vol] 12 mmol/L 5-15 [facility] Automated lymphocyte count a s percentage of total leukocytesOrdered By: Safia Ruelas on 10-01-2024 Lymphocytes/100 WBC Auto (Unsp spec) 23.1 % 19-41 [facility] BUN/creatinine ratioOrdered By: Safia Ruelas on 10-01-2024 Urea nitrogen/Creatinine [Mass ratio] 24.9 mg/mg High 10-20 [facility] Basophil percentageOrdered B y: Safia Ruelas on 10-01-2024 Basophils/100 WBC (Bld) 0.5 % 0-1 [facility] Carbon dioxide, total [Moles /volume] in Central venous bloodOrdered By: Safia Ruelas on 10-01-2024 CO2 [Moles/Vol] 24.4 mmol/L 21.0-32.0 [facility] Chloride assayOrdered By: Balbir Ruelas on 10-01-2024 Chloride [Moles/Vol] 99 mmol/L 98-[address] [facility] Eosinophil percentageOrdered By: Safia Ruelas on 10-01-2024 Eosinophils/100 WBC (Bld) 2.0 % 0-5 [facility] Erythrocyte distribution wid th ratioOrdered By: Safia Ruelas on 10-01-2024 Erythrocyte distribution width (RBC) [Ratio] 13.5 % 11.6-14.6 [facility] Erythrocyte distribution wid th standard deviationOrdered By: Safia Ruelas on 10-01-2024 Erythrocyte distribution width (RBC) [Ratio] 46.2 fl High 35.1-43.9 [facility] Glomerular filtration rate ( GFR) estimation/1.73 sq m using serum, plasma, or whole bOrdered By: Safia Ruelas on 10-01-2024 GFR/1.73 sq M.predicted among non-blacks MDRD (S/P/Bld) [Vol rate/Area] 63 mL/min/{1.73_m2} >60 [facility] Comment on above: mL/min/1.73m2 CKD-EP I Creatinine Equation (2020) Hematocrit Auto (Bld) [Volum e fraction]Ordered By: Safia Ruelas on 10-01-2024 Hematocrit (Bld) [Volume fraction] 38.7 % 37-47 [facility] Hemoglobin measurementOrdere d By: Safia Ruelas on 10-01-2024 Hemoglobin (Bld) [Mass/Vol] 12.5 g/dL 12.0-15.0 [facility] Immature granulocytes/100 WB C Auto (Bld)Ordered By: Safia Ruelas on 10-01-2024 Immature granulocytes/100 WBC (Bld) 0.800 % 0.0-0.9 [facility] Comment on above: IG% - Immature Granu locytes (promyelocytes, myelocytes and metamyelocytes) > 1% indicates that a LEFT SHIFT is Present. MCV (mean corpuscular volume ) determinationOrdered By: Safia Ruelas on 10-01-2024 MCV (RBC) [Entitic vol] 93.3 fL 81-99 [facility] Mean corpuscular hemoglobin (MCH) determinationOrdered By: Safia Ruelas on 10-01-2024 MCH (RBC) [Entitic mass] 30.1 pg 27.0-32.0 [facility] Mean corpuscular hemoglobin concentration (MCHC) determinationOrdered By: Safia Ruelas on 10-01-2024 MCHC (RBC) [Mass/Vol] 32.3 g/dL 32-36 [facility] Mean platelet volume determi nationOrdered By: Safia Ruelas on 10-01-2024 Platelet mean volume (Bld) [Entitic vol] 11.7 fL 6.2-12.0 [facility] Monocyte percentageOrdered B y: Safia Ruelas on 10-01-2024 Monocytes/100 WBC (Bld) 12.7 % High 0-10 [facility] Neutrophil percentageOrdered By: Safia Ruelas on 10-01-2024 Neutrophils/100 WBC (Bld) 60.9 % 47-70 [facility] Nucleated red blood cell per centageOrdered By: Safia Ruelas on 10-01-2024 Nucleated RBC/100 WBC (Bld) [Ratio] 0 % 0-5 [facility] Platelet countOrdered By: Balbir Ruelas on 10-01-2024 Platelets (Bld) [#/Vol] 371 10*3/uL 150-450 [facility] Potassium measurement (mass/ volume)Ordered By: Safia Ruelas on 10-01-2024 Potassium (Unsp spec) [Mass/Vol] 4.2 mmol/L 3.3-5.1 [facility] RBC Auto (Bld) [#/Vol]Ordere d By: Safia Ruelas on 10-01-2024 RBC (Bld) [#/Vol] 4.15 10*6/uL Low 4.2-5.4 [facility] Serum creatinine measurement (mass/volume)Ordered By: Safia Ruelas on 10-01-2024 Creatinine [Mass/Vol] 0.93 mg/dL 0.70-1.20 [facility] Serum glucose measurement (m ass/volume)Ordered By: Safia Ruelas on 10-01-2024 Glucose [Mass/Vol] 93 mg/dL 70-99 [facility] Serum or plasma calcium dayan urement (mass/volume)Ordered By: Safia Cheobonimelanie on 10-01-2024 Calcium [Mass/Vol] 9.5 mg/dL 7.6-11.0 [facility] Serum or plasma urea nitroge n measurement (mass/volume)Ordered By: Balbirsherry Griderbonimelanie on 10-01-2024 Urea nitrogen [Mass/Vol] 23 mg/dL High 4-19 [facility] Sodium levelOrdered By: Leonides chou Cheobonimelanie on 10-01-2024 Sodium [Moles/Vol] 135 mmol/L 133-145 [facility] White blood cell (WBC) count Ordered By: Balbirjean mariedesireeskye Griderbonimelanie on 10-01-2024 WBC (Bld) [#/Vol] 10.6 10*3/uL 4.4-11.0 [facility] Clostridium difficile detect ion by polymerase chain reactionOrdered By: Safia Ruelas on 09-29-2024 C. difficile DNA CHUCKY+probe Ql (Unsp spec) [facility] Absolute lymphocyte countOrd ered By: Balbirjean mariedesireeskye Griderbonimelanie on 09-24-2024 Lymphocytes Auto (Unsp spec) [#/Vol] 2.72 10*3/uL 0.83-4.51 [facility] Absolute neutrophil countOrd ered By: Balbirjean mariedesireeskye Griderbonimelanie on 09-24-2024 Neutrophils (Bld) [#/Vol] 6.3 10*3/uL 2.0-7.7 [facility] Anion gap in Serum or Plasma Ordered By: Safia Griderbonimelanie on 09-24-2024 Anion gap [Moles/Vol] 12 mmol/L 5-15 [facility] Automated lymphocyte count a s percentage of total leukocytesOrdered By: Balbirsherry Ruelas on 09-24-2024 Lymphocytes/100 WBC Auto (Unsp spec) 26.3 % 19-41 [facility] BUN/creatinine ratioOrdered By: Safia Griderbonimelanie on 09-24-2024 Urea nitrogen/Creatinine [Mass ratio] 36.4 mg/mg High 10-20 [facility] Basophil percentageOrdered B y: Safia Ruelas on 09-24-2024 Basophils/100 WBC (Bld) 0.7 % 0-1 [facility] Carbon dioxide, total [Moles /volume] in Central venous bloodOrdered By: Safia Ruelas on 09-24-2024 CO2 [Moles/Vol] 24.1 mmol/L 21.0-32.0 [facility] Chloride assayOrdered By: Balbir Ruelas on 09-24-2024 Chloride [Moles/Vol] 100 mmol/L 98-[address] [facility] Eosinophil percentageOrdered By: Safia Ruelas on 09-24-2024 Eosinophils/100 WBC (Bld) 2.7 % 0-5 [facility] Erythrocyte distribution wid th ratioOrdered By: Safia Ruelas on 09-24-2024 Erythrocyte distribution width (RBC) [Ratio] 13.6 % 11.6-14.6 [facility] Erythrocyte distribution wid th standard deviationOrdered By: Safia Ruelas on 09-24-2024 Erythrocyte distribution width (RBC) [Ratio] 47.1 fl High 35.1-43.9 [facility] Glomerular filtration rate ( GFR) estimation/1.73 sq m using serum, plasma, or whole bOrdered By: Safia Ruelas on 09-24-2024 GFR/1.73 sq M.predicted among non-blacks MDRD (S/P/Bld) [Vol rate/Area] 62 mL/min/{1.73_m2} >60 [facility] Comment on above: mL/min/1.73m2 CKD-EP I Creatinine Equation (2020) Hematocrit Auto (Bld) [Volum e fraction]Ordered By: Safia Ruelas on 09-24-2024 Hematocrit (Bld) [Volume fraction] 41.2 % 37-47 [facility] Hemoglobin measurementOrdere d By: Safia Ruelas on 09-24-2024 Hemoglobin (Bld) [Mass/Vol] 13.0 g/dL 12.0-15.0 [facility] Immature granulocytes/100 WB C Auto (Bld)Ordered By: Safia Ruelas on 09-24-2024 Immature granulocytes/100 WBC (Bld) 1.000 % High 0.0-0.9 [facility] Comment on above: IG% - Immature Granu locytes (promyelocytes, myelocytes and metamyelocytes) > 1% indicates that a LEFT SHIFT is Present. MCV (mean corpuscular volume ) determinationOrdered By: Safia Ruelas on 09-24-2024 MCV (RBC) [Entitic vol] 94.3 fL 81-99 [facility] Mean corpuscular hemoglobin (MCH) determinationOrdered By: jean mariechantillyskye Ruelas on 09-24-2024 MCH (RBC) [Entitic mass] 29.7 pg 27.0-32.0 [facility] Mean corpuscular hemoglobin concentration (MCHC) determinationOrdered By: Safia Griderbonimelanie on 09-24-2024 MCHC (RBC) [Mass/Vol] 31.6 g/dL Low 32-36 [facility] Mean platelet volume determi nationOrdered By: Safia Ruelas on 09-24-2024 Platelet mean volume (Bld) [Entitic vol] 11.3 fL 6.2-12.0 [facility] Monocyte percentageOrdered B y: Balbirsherry Griderbonimelanie on 09-24-2024 Monocytes/100 WBC (Bld) 8.9 % 0-10 [facility] Neutrophil percentageOrdered By: jean mariechantillyskye Ruelas on 09-24-2024 Neutrophils/100 WBC (Bld) 60.4 % 47-70 [facility] Nucleated red blood cell per centageOrdered By: Safia Ruelas on 09-24-2024 Nucleated RBC/100 WBC (Bld) [Ratio] 0 % 0-5 [facility] Platelet countOrdered By: Balbir jean mariejosé antonio Griderbonimelanie on 09-24-2024 Platelets (Bld) [#/Vol] 441 10*3/uL 150-450 [facility] Potassium measurement (mass/ volume)Ordered By: Safia Ruelas on 09-24-2024 Potassium (Unsp spec) [Mass/Vol] 4.3 mmol/L 3.3-5.1 [facility] RBC Auto (Bld) [#/Vol]Ordere d By: Safia Ruelas on 09-24-2024 RBC (Bld) [#/Vol] 4.37 10*6/uL 4.2-5.4 [facility] Serum creatinine measurement (mass/volume)Ordered By: Safia Ruelas on 09-24-2024 Creatinine [Mass/Vol] 0.93 mg/dL 0.70-1.20 [facility] Serum glucose measurement (m ass/volume)Ordered By: Safia Ruelas on 09-24-2024 Glucose [Mass/Vol] 48 mg/dL Low 70-99 [facility] Serum or plasma calcium dayna urement (mass/volume)Ordered By: Safia Ruelas on 09-24-2024 Calcium [Mass/Vol] 9.5 mg/dL 7.6-11.0 [facility] Serum or plasma urea nitroge n measurement (mass/volume)Ordered By: Safia Ruelas on 09-24-2024 Urea nitrogen [Mass/Vol] 34 mg/dL High 4-19 [facility] Sodium levelOrdered By: Leonides jiménezradha Jessenia on 09-24-2024 Sodium [Moles/Vol] 136 mmol/L 133-145 [facility] White blood cell (WBC) count Ordered By: Safia Ruelas on 09-24-2024 WBC (Bld) [#/Vol] 10.4 10*3/uL 4.4-11.0 [facility] Absolute lymphocyte countOrd ered By: Safia Ruelas on 09-17-2024 Lymphocytes Auto (Unsp spec) [#/Vol] 2.52 10*3/uL 0.83-4.51 [facility] Absolute neutrophil countOrd ered By: Safia Ruelas on 09-17-2024 Neutrophils (Bld) [#/Vol] 5.8 10*3/uL 2.0-7.7 [facility] Anion gap in Serum or Plasma Ordered By: Safia Ruelas on 09-17-2024 Anion gap [Moles/Vol] 12 mmol/L 5-15 [facility] Automated lymphocyte count a s percentage of total leukocytesOrdered By: Safia Ruelas on 09-17-2024 Lymphocytes/100 WBC Auto (Unsp spec) 26.3 % 19-41 [facility] BUN/creatinine ratioOrdered By: Safia Ruelas on 09-17-2024 Urea nitrogen/Creatinine [Mass ratio] 45.9 mg/mg High 10-20 [facility] Basophil percentageOrdered B y: Safia Ruelas on 09-17-2024 Basophils/100 WBC (Bld) 0.6 % 0-1 [facility] Calculated very low density lipoprotein (VLDL) cholesterol measurementOrdered By: sherry Ruelas on 09-17-2024 Calculated very low density lipoprotein (VLDL) cholesterol measurement 22 mg/dL 5-40 [facility] Carbon dioxide, total [Moles /volume] in Central venous bloodOrdered By: Safia Ruelas on 09-17-2024 CO2 [Moles/Vol] 24.5 mmol/L 21.0-32.0 [facility] Chloride assayOrdered By: Balbir Ruelas on 09-17-2024 Chloride [Moles/Vol] 98 mmol/L 98-[address] [facility] Eosinophil percentageOrdered By: jean mariechantillyskye Ruelas on 09-17-2024 Eosinophils/100 WBC (Bld) 3.2 % 0-5 [facility] Erythrocyte distribution wid th ratioOrdered By: jean mariechantillyskye Ruelas on 09-17-2024 Erythrocyte distribution width (RBC) [Ratio] 13.4 % 11.6-14.6 [facility] Erythrocyte distribution wid th standard deviationOrdered By: Safia Ruelas on 09-17-2024 Erythrocyte distribution width (RBC) [Ratio] 45.4 fl High 35.1-43.9 [facility] Glomerular filtration rate ( GFR) estimation/1.73 sq m using serum, plasma, or whole bOrdered By: Safia Ruelas on 09-17-2024 GFR/1.73 sq M.predicted among non-blacks MDRD (S/P/Bld) [Vol rate/Area] 69 mL/min/{1.73_m2} >60 [facility] Comment on above: mL/min/1.73m2 CKD-EP I Creatinine Equation (2020) Hematocrit Auto (Bld) [Volum e fraction]Ordered By: Safia Ruelas on 09-17-2024 Hematocrit (Bld) [Volume fraction] 38.8 % 37-47 [facility] Hemoglobin measurementOrdere d By: Safia Ruelas on 09-17-2024 Hemoglobin (Bld) [Mass/Vol] 12.6 g/dL 12.0-15.0 [facility] Immature granulocytes/100 WB C Auto (Bld)Ordered By: Safia Ruelas on 09-17-2024 Immature granulocytes/100 WBC (Bld) 0.700 % 0.0-0.9 [facility] Comment on above: IG% - Immature Granu locytes (promyelocytes, myelocytes and metamyelocytes) > 1% indicates that a LEFT SHIFT is Present. LDL calc ser/plasOrdered By: Safia Ruelas on 09-17-2024 Cholesterol in LDL [Mass/Vol] 120 mg/dL [facility] Comment on above: Twsabgqwbb=947-602 m g/dL & Higher Dcyt=488 mg/dL or greater MCV (mean corpuscular volume ) determinationOrdered By: Safia Ruelas on 09-17-2024 MCV (RBC) [Entitic vol] 91.7 fL 81-99 [facility] Mean corpuscular hemoglobin (MCH) determinationOrdered By: Safia Ruelas on 09-17-2024 MCH (RBC) [Entitic mass] 29.8 pg 27.0-32.0 [facility] Mean corpuscular hemoglobin concentration (MCHC) determinationOrdered By: Safia Ruelas on 09-17-2024 MCHC (RBC) [Mass/Vol] 32.5 g/dL 32-36 [facility] Mean platelet volume determi nationOrdered By: Safia Ruelas on 09-17-2024 Platelet mean volume (Bld) [Entitic vol] 11.4 fL 6.2-12.0 [facility] Monocyte percentageOrdered B y: Safia Ruelas on 09-17-2024 Monocytes/100 WBC (Bld) 8.5 % 0-10 [facility] Neutrophil percentageOrdered By: Safia Ruelas on 09-17-2024 Neutrophils/100 WBC (Bld) 60.7 % 47-70 [facility] Nucleated red blood cell per centageOrdered By: Safia Ruelas on 09-17-2024 Nucleated RBC/100 WBC (Bld) [Ratio] 0 % 0-5 [facility] Platelet countOrdered By: Balbir Ruelas on 09-17-2024 Platelets (Bld) [#/Vol] 311 10*3/uL 150-450 [facility] Potassium measurement (mass/ volume)Ordered By: Safia Ruelas on 09-17-2024 Potassium (Unsp spec) [Mass/Vol] 4.1 mmol/L 3.3-5.1 [facility] RBC Auto (Bld) [#/Vol]Ordere d By: Safia Ruelas on 09-17-2024 RBC (Bld) [#/Vol] 4.23 10*6/uL 4.2-5.4 [facility] Screening total cholesterol/ high density lipoprotein (HDL) cholesterol ratioOrdered By: Safia Ruelas on 09-17-2024 Cholesterol.total/Alta sterol in HDL [Mass ratio] 5.38 {ratio} [facility] Serum creatinine measurement (mass/volume)Ordered By: Safia Ruelas on 09-17-2024 Creatinine [Mass/Vol] 0.86 mg/dL 0.70-1.20 [facility] Serum glucose measurement (m ass/volume)Ordered By: Safia Ruelas on 09-17-2024 Glucose [Mass/Vol] 216 mg/dL High 70-99 [facility] Serum or plasma calcium dayna urement (mass/volume)Ordered By: Safia Ruelas on 09-17-2024 Calcium [Mass/Vol] 9.4 mg/dL 7.6-11.0 [facility] Serum or plasma cholesterol in HDL measurement (mass/volume)Ordered By: Safia Ruelas on 09-17-2024 Cholesterol in HDL [Mass/Vol] 33 mg/dL Low >40 [facility] Comment on above: National Cholesterol Education Program (NCEP) guidelines:<40 mg/dL: Low HDL-cholesterol (major risk factor for CHD)>= 60 mg/dL: High HDL-cholesterol (negative risk factor for CHD)HDL-cholesterol is affected by a number of factors, e.g. smoking, exercise, hormones, sex and age. Serum or plasma cholesterol measurement (mass/volume)Ordered By: Safia Ruelas on 09-17-2024 Cholesterol [Mass/Vol] 175 mg/dL <201 [facility] Comment on above: Cholesterol level, D esirable <200 mg/dLBorderline high cholesterol 200-239 mg/dLHigh cholesterol >=240 mg/dLRecommendations of the NCEP Adult Treatment Panel for the following risk-cutoff thresholds for the [place] population. Serum or plasma urea nitroge n measurement (mass/volume)Ordered By: Safia Ruelas on 09-17-2024 Urea nitrogen [Mass/Vol] 39 mg/dL High 4-19 [facility] Sodium levelOrdered By: Leonides Ruelas on 09-17-2024 Sodium [Moles/Vol] 134 mmol/L 133-145 [facility] TSH DL <= 0.005 mIU/L QnOrde red By: Safia Ruelas on 09-17-2024 TSH Qn 3.500 uIU/mL 0.300-4.200 [facility] Triglycerides measurementOrd ered By: Safia Ruelas on 09-17-2024 Triglyceride [Mass/Vol] 111 mg/dL <199 [facility] Comment on above: The drugs N-Acetylcy steine and Metamizole may falsely depress this assay. Normal range: <150 mg/dLBorderline High: 150-199 mg/dLHigh: 200-499 mg/dLVery High: >500 mg/dL White blood cell (WBC) count Ordered By: Safia Ruelas on 09-17-2024 WBC (Bld) [#/Vol] 9.6 10*3/uL 4.4-11.0 [facility] Absolute lymphocyte countOrd ered By: Safia Ruelas on 09-10-2024 Lymphocytes Auto (Unsp spec) [#/Vol] 2.11 10*3/uL 0.83-4.51 [facility] Absolute neutrophil countOrd ered By: Balbirjean mariedesireeskye Griderbonimelanie on 09-10-2024 Neutrophils (Bld) [#/Vol] 8.1 10*3/uL High 2.0-7.7 [facility] Anion gap in Serum or Plasma Ordered By: Safia Ruelas on 09-10-2024 Anion gap [Moles/Vol] 13 mmol/L 5-15 [facility] Automated lymphocyte count a s percentage of total leukocytesOrdered By: Safia Ruelas on 09-10-2024 Lymphocytes/100 WBC Auto (Unsp spec) 17.9 % Low 19-41 [facility] BUN/creatinine ratioOrdered By: Safia Griderbonimelanie on 09-10-2024 Urea nitrogen/Creatinine [Mass ratio] 29.1 mg/mg High 10-20 [facility] Basophil percentageOrdered B y: Safia Ruelas on 09-10-2024 Basophils/100 WBC (Bld) 0.3 % 0-1 [facility] Bilirubin, totalOrdered By: Safia Griderbonimelanie on 09-10-2024 Bilirubin [Mass/Vol] 0.55 mg/dL 0.00-1.[address] [facility] Carbon dioxide, total [Moles /volume] in Central venous bloodOrdered By: Safia Ruelas on 09-10-2024 CO2 [Moles/Vol] 23.6 mmol/L 21.0-32.0 [facility] Chloride assayOrdered By: Balbir jean mariejosé antonio Ruelas on 09-10-2024 Chloride [Moles/Vol] 97 mmol/L Low 98-[address] [facility] Eosinophil percentageOrdered By: [facility] Griderbonimelanie on 09-10-2024 Eosinophils/100 WBC (Bld) 0.5 % 0-5 [facility] Erythrocyte distribution wid th ratioOrdered By: Leonidesdesireeskye Griderbonimelanie on 09-10-2024 Erythrocyte distribution width (RBC) [Ratio] 13.4 % 11.6-14.6 [facility] Erythrocyte distribution wid th standard deviationOrdered By: sherry Griderbonimelanie on 09-10-2024 Erythrocyte distribution width (RBC) [Ratio] 45.2 fl High 35.1-43.9 [facility] Glomerular filtration rate ( GFR) estimation/1.73 sq m using serum, plasma, or whole bOrdered By: Safia Ruelas on 09-10-2024 GFR/1.73 sq M.predicted among non-blacks MDRD (S/P/Bld) [Vol rate/Area] 59 mL/min/{1.73_m2} Low >60 [facility] Comment on above: mL/min/1.73m2 CKD-EP I Creatinine Equation (2020) Hematocrit Auto (Bld) [Volum e fraction]Ordered By: [facility] Ruelas on 09-10-2024 Hematocrit (Bld) [Volume fraction] 41.8 % 37-47 [facility] Hemoglobin measurementOrdere d By: sherry Ruelas on 09-10-2024 Hemoglobin (Bld) [Mass/Vol] 13.4 g/dL 12.0-15.0 [facility] Immature granulocytes/100 WB C Auto (Bld)Ordered By: Safia Ruelas on 09-10-2024 Immature granulocytes/100 WBC (Bld) 0.800 % 0.0-0.9 [facility] Comment on above: IG% - Immature Granu locytes (promyelocytes, myelocytes and metamyelocytes) > 1% indicates that a LEFT SHIFT is Present. Laboratory - Chemistry and C hemistry - challengeOrdered By: Safia Ruelas on 09-10-2024 AST [Catalytic activity/Vol] 21 U/L <32 [facility] MCV (mean corpuscular volume ) determinationOrdered By: Safia Ruelas on 09-10-2024 MCV (RBC) [Entitic vol] 92.5 fL 81-99 [facility] Mean corpuscular hemoglobin (MCH) determinationOrdered By: [facility] Ruelas 09-10-2024 MCH (RBC) [Entitic mass] 29.6 pg 27.0-32.0 [facility] Mean corpuscular hemoglobin concentration (MCHC) determinationOrdered By: jean mariechantillyskye Gridermelanie 09-10-2024 MCHC (RBC) [Mass/Vol] 32.1 g/dL 32-36 [facility] Mean platelet volume determi nationOrdered By: Safia Ruelas on 09-10-2024 Platelet mean volume (Bld) [Entitic vol] 12.6 fL High 6.2-12.0 [facility] Monocyte percentageOrdered B y: Safia Ruelas on 09-10-2024 Monocytes/100 WBC (Bld) 12.3 % High 0-10 [facility] Neutrophil percentageOrdered By: Safia Ruelas on 09-10-2024 Neutrophils/100 WBC (Bld) 68.2 % 47-70 [facility] Nucleated red blood cell per centageOrdered By: Safia Ruelas on 09-10-2024 Nucleated RBC/100 WBC (Bld) [Ratio] 0 % 0-5 [facility] Platelet countOrdered By: Balbir Ruelas on 09-10-2024 Platelets (Bld) [#/Vol] 190 10*3/uL 150-450 [facility] Potassium measurement (mass/ volume)Ordered By: Safia Ruelas on 09-10-2024 Potassium (Unsp spec) [Mass/Vol] 4.3 mmol/L 3.3-5.1 [facility] RBC Auto (Bld) [#/Vol]Ordere d By: Safia Ruelas on 09-10-2024 RBC (Bld) [#/Vol] 4.52 10*6/uL 4.2-5.4 [facility] Serum creatinine measurement (mass/volume)Ordered By: Safia Ruelas on 09-10-2024 Creatinine [Mass/Vol] 0.98 mg/dL 0.70-1.20 [facility] Serum globulin measurementOr dered By: Safia Ruelas on 09-10-2024 Globulin (S) [Mass/Vol] 3.3 g/dL 2.2-4.2 [facility] Serum glucose measurement (m ass/volume)Ordered By: Safia Ruelas on 09-10-2024 Glucose [Mass/Vol] 181 mg/dL High 70-99 [facility] Serum or plasma alanine raymundo otransferase (ALT) measurementOrdered By: Safia Ruelas on 09-10-2024 ALT [Catalytic activity/Vol] 26 U/L <35 [facility] Serum or plasma albumin dayna urement (mass/volume)Ordered By: Safia Ruelas on 09-10-2024 Albumin [Mass/Vol] 3.4 g/dL 3.4-4.8 [facility] Serum or plasma albumin/glob ulin mass ratioOrdered By: Safia Ruelas on 09-10-2024 Albumin/Globulin [Mass ratio] 1.0 {ratio} 0.9-2.4 [facility] Serum or plasma alkaline hannah sphatase measurementOrdered By: Safia Ruelas on 09-10-2024 ALP [Catalytic activity/Vol] 114 U/L High 35-104 [facility] Serum or plasma calcium dayna urement (mass/volume)Ordered By: Safia Ruelas on 09-10-2024 Calcium [Mass/Vol] 9.3 mg/dL 7.6-11.0 [facility] Serum or plasma urea nitroge n measurement (mass/volume)Ordered By: Safia Ruelas on 09-10-2024 Urea nitrogen [Mass/Vol] 29 mg/dL High 4-19 [facility] Sodium levelOrdered By: Leonides jiménezradha Jessenia on 09-10-2024 Sodium [Moles/Vol] 133 mmol/L 133-145 [facility] Total proteinOrdered By: Augustomelanie plataskye Ruelas on 09-10-2024 Protein [Mass/Vol] 6.7 g/dL 5.9-8.4 [facility] White blood cell (WBC) count Ordered By: Safia Ruelas on 09-10-2024 WBC (Bld) [#/Vol] 11.8 10*3/uL High 4.4-11.0 [facility] LABORATORYOrdered By: Abigail Smith on 09-09-2024 Glucose [Mass/Vol] 212 mg/dL High 82 - 115 mg/dL [employer] Work Phone: Glucose [Mass/Vol] 226 mg/dL High 82 - 115 mg/dL [employer] Work Phone: LABORATORYOrdered By: Zoila Zarco on 09-08-2024 Glucose [Mass/Vol] 149 mg/dL High 82 - 115 mg/dL [employer] Work Phone: LABORATORYOrdered By: Rob Palmer on 09-08-2024 Blood Glucose Testing Reason Routine (09/08/24 6:16 PM) [employer] Work Phone: Blood Glucose Testing Reason Routine (09/08/24 11:58 AM) [employer] Work Phone: LABORATORYOrdered By: Rob Palmer on 09-07-2024 Blood Glucose Testing Reason Routine (09/07/24 4:46 PM) [employer] Work Phone: .Auto Diffon 09-03-2024 Basophil, Absolute 0.1 10 3/mcL Normal 0.0-0.3 [facility] Comment on above: Performed By: #### A DIFF, CBC, ANEU, GFR, BMP #### [address] [address] Basophils/100 WBC (Bld) 1.0 % Normal 0.0-2.[address] [facility] Comment on above: Performed By: #### A DIFF, CBC, ANEU, GFR, BMP #### [address] [address] Eosinophil, Absolute 0.2 10 3/mcL Normal 0.0-0.7 [facility] Comment on above: Performed By: #### A DIFF, CBC, ANEU, GFR, BMP #### [address] [address] Eosinophils/100 WBC (Bld) 3.2 % Normal 0.0-6.0 [facility] Comment on above: Performed By: #### A DIFF, CBC, ANEU, GFR, BMP #### [address] [address] Lymphocyte, Absolute 2.0 10 3/mcL Normal 0.9-4.3 [facility] Comment on above: Performed By: #### A DIFF, CBC, ANEU, GFR, BMP #### [address] [address] Lymphocytes/100 WBC (Bld) 26.6 % Normal 20.0-40.0 [facility] Comment on above: Performed By: #### A DIFF, CBC, ANEU, GFR, BMP #### [address] [address] Monocyte, Absolute 0.7 10 3/mcL Normal 0.1-1.4 [facility] Comment on above: Performed By: #### A DIFF, CBC, ANEU, GFR, BMP #### [address] [address] Monocytes/100 WBC (Bld) 9.7 % Normal 2.0-13.[address] [facility] Comment on above: Performed By: #### A DIFF, CBC, ANEU, GFR, BMP #### [address] [address] Neutrophils/100 WBC (Bld) 59.5 % Normal 50.0-75.0 [facility] Comment on above: Performed By: #### A DIFF, CBC, ANEU, GFR, BMP #### [address] [address] .GFRon 09-03-2024 Estimated Glomerular Filtration Rate 57 ml/min/1.73sqm Normal [facility] Comment on above: Result Comment: [...] A DIFF, CBC, ANEU, GFR, BMP #### [address] [address] .NEUABSon 09-03-2024 Neutrophil, Absolute 4.5 10 3/mcL Normal 2.3-8.1 [facility] Comment on above: Performed By: #### A DIFF, CBC, ANEU, GFR, BMP #### [place] [address] B12on 09-03-2024 Cobalamin (Vitamin B12) [Mass/Vol] 834 pg/mL Normal 211-911 [facility] Comment on above: Performed By: #### A DIFF, CBC, ANEU, GFR, BMP #### [place] [address] CBCon 09-03-2024 Erythrocyte distribution width (RBC) [Ratio] 14.7 % Normal 11.5-15.5 [facility] Comment on above: Performed By: #### A DIFF, CBC, ANEU, GFR, BMP #### [place] [address] Hematocrit (Bld) [Volume fraction] 39.7 % Normal 34.0-46.0 [facility] Comment on above: Performed By: #### A DIFF, CBC, ANEU, GFR, BMP #### [place] [address] Hgb 13.2 G/dL Normal 12.0-16.0 [facility] Comment on above: Performed By: #### A DIFF, CBC, ANEU, GFR, BMP #### [place] [address] MCH (RBC) [Entitic mass] 30.6 pg Normal 27.0-33.0 [facility] Comment on above: Performed By: #### A DIFF, CBC, ANEU, GFR, BMP #### [place] [address] MCHC 33.3 G/dL Normal 32.0-36.0 [facility] Comment on above: Performed By: #### A DIFF, CBC, ANEU, GFR, BMP #### [place] [address] MCV (RBC) [Entitic vol] 91.9 fL Normal 80.0-99.[address] [facility] Comment on above: Performed By: #### A DIFF, CBC, ANEU, GFR, BMP #### [address] [address] Platelet 228 10 3/mcL Normal 150-450 [facility] Comment on above: Performed By: #### A DIFF, CBC, ANEU, GFR, BMP #### [address] [address] Platelet mean volume (Bld) [Entitic vol] 10.1 fL Normal 6.6-10.5 [facility] Comment on above: Performed By: #### A DIFF, CBC, ANEU, GFR, BMP #### [address] [address] RBC 4.32 10 6/mcL Normal 4.10-5.30 [facility] Comment on above: Performed By: #### A DIFF, CBC, ANEU, GFR, BMP #### [address] [address] WBC 7.6 10 3/mcL Normal 4.5-10.8 [facility] Comment on above: Performed By: #### A DIFF, CBC, ANEU, GFR, BMP #### [address] [address] CMPon 09-03-2024 Albumin Level 3.0 G/dL Low 3.2-4.8 [facility] Comment on above: Performed By: #### A DIFF, CBC, ANEU, GFR, BMP #### [place] [id number] Albumin/Globulin [Mass ratio] 0.9 {ratio} Normal 0.9-1.6 [facility] Comment on above: Performed By: #### A DIFF, CBC, ANEU, GFR, BMP #### [address] [address] ALP [Catalytic activity/Vol] 115 U/L Normal 38-126 [facility] Comment on above: Performed By: #### A DIFF, CBC, ANEU, GFR, BMP #### [place] [id number] ALT [Catalytic activity/Vol] 37 U/L Normal 10-49 [facility] Comment on above: Performed By: #### A DIFF, CBC, ANEU, GFR, BMP #### [place] [id number] AST [Catalytic activity/Vol] 31 U/L Normal 8-34 [facility] Comment on above: Performed By: #### A DIFF, CBC, ANEU, GFR, BMP #### [place] [id number] Bili Total 0.50 mg/dL Normal 0.20-1.20 [facility] Comment on above: Result Comment: Use of this assay is not recommended for patients undergoing treatment with eltrombopag due to the potential for falsely elevated results. Performed By: #### A DIFF, CBC, ANEU, GFR, BMP #### [place] [address] BUN/Creatinine Ratio 29.7 ratio High 10.0-22.0 [facility] Comment on above: Performed By: #### A DIFF, CBC, ANEU, GFR, BMP #### [place] [id number] Calcium [Mass/Vol] 9.6 mg/dL Normal 8.7-10.4 [facility] Comment on above: Performed By: #### A DIFF, CBC, ANEU, GFR, BMP #### [place] [id number] Chloride [Moles/Vol] 101 mmol/L Normal 98-110 [facility] Comment on above: Performed By: #### A DIFF, CBC, ANEU, GFR, BMP #### [place] [id number] CO2 [Moles/Vol] 27 mmol/L Normal 22-32 [facility] Comment on above: Performed By: #### A DIFF, CBC, ANEU, GFR, BMP #### [place] [id number] Creatinine [Mass/Vol] 1.01 mg/dL Normal 0.50-1.20 [facility] Comment on above: Result Comment: Test ing performed on [employer] analyzer using enzymatic creatinine methodology. Performed By: #### A DIFF, CBC, ANEU, GFR, BMP #### [address] [address] Electrolyte Balance 10.0 mEq/L Normal 4.0-15.0 [facility] Comment on above: Performed By: #### A DIFF, CBC, ANEU, GFR, BMP #### [address] [address] Globulin 3.4 G/dL Normal 1.5-3.8 [facility] Comment on above: Performed By: #### A DIFF, CBC, ANEU, GFR, BMP #### [address] [address] Glucose [Mass/Vol] 187 mg/dL High 82-115 [facility] Comment on above: Performed By: #### A DIFF, CBC, ANEU, GFR, BMP #### [address] [address] Potassium [Moles/Vol] 4.6 mmol/L Normal 3.5-5.0 [facility] Comment on above: Performed By: #### A DIFF, CBC, ANEU, GFR, BMP #### [address] [address] Sodium [Moles/Vol] 138 mmol/L Normal 136-145 [facility] Comment on above: Performed By: #### A DIFF, CBC, ANEU, GFR, BMP #### [address] [address] Total Protein 6.4 G/dL Normal 5.7-8.2 [facility] Comment on above: Performed By: #### A DIFF, CBC, ANEU, GFR, BMP #### [address] [address] Urea nitrogen [Mass/Vol] 30.0 mg/dL High 8.0-22.0 [facility] Comment on above: Performed By: #### A DIFF, CBC, ANEU, GFR, BMP #### [address] [address] LABORATORYOrdered By: Ann Carrillo on 09-03-2024 Glucose [Mass/Vol] 270 mg/dL [facility] Work Phone: LABORATORYOrdered By: SYSTEM SYSTEM on 09-03-2024 Albumin BCP dye [Mass/Vol] 3.0 G/dL Low 3.2 - 4.8 G/dL ADM SS Albumin/Globulin [Mass ratio] 0.9 {ratio} Normal 0.9 - 1.6 ratio AH ADM SS ALP [Catalytic activity/Vol] 115 U/L Normal 38 - 126 U/L AH ADM SS ALT No additional P-5'-P [Catalytic activity/Vol] 37 U/L Normal 10 - 49 U/L AH ADM SS AST [Catalytic activity/Vol] 31 U/L Normal 8 - 34 U/L AH ADM SS Basophils (Bld) [#/Vol] 0.1 103/mcL [...] 4 mg/dL AH ADM SS Chloride [Moles/Vol] 101 mmol/L Normal 98 - 11 0 mEq/L AH ADM SS CO2 [Moles/Vol] 27 mmol/L Normal 22 - 32 mEq/L AH ADM SS Cobalamin (Vitamin B12) [Mass/Vol] 834 pg/mL Normal 211 - 911 pg/mL AH ADM SS Creatinine [Mass/Vol] 1.01 mg/dL Normal 0.50 - 1.20 mg/dL AH ADM SS Comment on above: Interpretive Data: T esting performed on [email or web address] CH analyzer using enzymatic creatinine methodology. Electrolyte Balance 10.0 mEq/L Normal 4.0 - 15 .0 mEq/L AH ADM SS Eosinophils (Bld) [#/Vol] 0.2 103/mcL Normal 0.0 - 0.7 10^3/mcL AH Workflow SS Eosinophils/100 WBC (Bld) 3.2 % Normal 0.0 - 6.0 % Workflow SS Erythrocyte distribution width (RBC) [Ratio] 14.7 % Normal 11.5 - 15.5 % AH Workflow SS Estimated Glomerular Filtration Rate 57 [...] 3.4 G/dL Normal 1.5 - 3.8 G/dL ADM SS Glucose [Mass/Vol] 187 mg/dL High 82 - 115 mg/dL ADM SS Hematocrit (Bld) [Volume fraction] 39.7 % Normal 34.0 - 46.0 % Workflow SS Hemoglobin (Bld) [Mass/Vol] 13.2 G/dL Normal 12.0 - 16.0 G/dL AH Workflow SS Lymphocytes (Bld) [#/Vol] 2.0 103/mcL Normal 0.9 - 4.3 10^3/mcL Workflow SS Lymphocytes/100 WBC (Bld) 26.6 % Normal 20.0 - 40.0 % Workflow SS MCH (RBC) [Entitic mass] 30.6 pg Normal 27.0 - 33.0 pg AH Workflow SS MCHC 33.3 G/dL Normal 32.0 - 36.0 G/dL AH Workflow SS MCV (RBC) [Entitic vol] 91.9 fL Normal 80.0 - 99.0 fL Workflow SS Monocytes (Bld) [#/Vol] 0.7 103/mcL [...] 138 mmol/L Normal 136 - 145 mEq/L ADM SS TSH Qn 3.920 mIU/mL Normal 0.550 - 4.780 mIU/mL ADM SS Urea nitrogen [Mass/Vol] 30.0 mg/dL High 8.0 - 22.0 mg/dL ADM SS Urea nitrogen/Creatinine [Mass ratio] 29.7 ratio High 10.0 - 22.0 ratio ADM SS WBC (Bld) [#/Vol] 7.6 103/mcL Normal 4.5 - 10.8 10^3/mcL Workflow SS TSHon 09-03-2024 TSH 3.920 mIU/mL Normal 0.550-4.780 [facility] Comment on above: Performed By: #### A DIFF, CBC, ANEU, GFR, BMP #### [place] [address] CT HEAD OR BRAIN W/O CONTRAS Ton [...] 09/02/2024 3:10:44 PM Ordering Provider: SILVINO HA [facility] Telephone (FAMPWS) LINDSAY ACUNA ([id number]) 1945 F Date Time Provider Department 08/30/24 KAMERON CARUSO [facility] During your visit today, we recorded the following information about you: Jaiden Paulino, ZOE 08/30/2024 9:11 AM Signed [facility] reports patient was in [facility] with dx: stroke, and [facility]24 to home with [facility] SN PT OT [facility] AND [facility]. Asking if pcp agreeable to follow for C. Please phone Marya with verbal: [phone] Mj Glover APRN.GARRETT 08/30/2024 9:19 AM Signed Please let know that Dr. Caruso's team will follow orders. Okay to proceed. Mj Glover APRN.Fuozia Reynoso LPN 08/30/2024 10:09 AM Signed Marya with [facility] notified. Allergies As of Date: 08/30/2024 Noted Allergy Reaction BENZOCAINE 07/08/2005 2 - Rash COCAINE 05/28/2008 Comments: Inverted T PERFUMES 07/08/2005 12 - Shortness of Breath Comments: coughes and chokes SULFA (SULFONAMIDE ANTIBIOTICS) 07/08/2005 5 - Intolerance Date Reviewed: 06/26/2024 Reviewed by: Bret Arambula LPN - Fully Assessed Reason for Visit: [facility] requesting verbal agree to follow [Other] [...] Status:Closed by FOUZIA MILLER on 08/30/24 Normal [facility] .Auto Diffon 08-26-2024 Basophil, Absolute 0.1 10 3/mcL Normal 0.0-0.3 [facility] Comment on above: Performed By: #### A DIFF, CBC, ANEU, GFR, BMP #### [address] [address] Basophils/100 WBC (Bld) 1.0 % Normal 0.0-2.[address] [facility] Comment on above: Performed By: #### A DIFF, CBC, ANEU, GFR, BMP #### [address] [address] Eosinophil, Absolute 0.3 10 3/mcL Normal 0.0-0.7 [facility] Comment on above: Performed By: #### A DIFF, CBC, ANEU, GFR, BMP #### [address] [address] Eosinophils/100 WBC (Bld) 4.2 % Normal 0.0-6.0 [facility] Comment on above: Performed By: #### A DIFF, CBC, ANEU, GFR, BMP #### [address] [address] Lymphocyte, Absolute 2.2 10 3/mcL Normal 0.9-4.3 [facility] Comment on above: Performed By: #### A DIFF, CBC, ANEU, GFR, BMP #### [address] [address] Lymphocytes/100 WBC (Bld) 26.3 % Normal 20.0-40.0 [facility] Comment on above: Performed By: #### A DIFF, CBC, ANEU, GFR, BMP #### [facility] [address] [place] [address] Monocyte, Absolute 0.9 10 3/mcL Normal 0.1-1.4 [facility] Comment on above: Performed By: #### A DIFF, CBC, ANEU, GFR, BMP #### [facility] [address] [place] [address] Monocytes/100 WBC (Bld) 11.4 % Normal 2.0-13.[address] [facility] Comment on above: Performed By: #### A DIFF, CBC, ANEU, GFR, BMP #### [address] [address] Neutrophils/100 WBC (Bld) 57.1 % Normal 50.0-75.0 [facility] Comment on above: Performed By: #### A DIFF, CBC, ANEU, GFR, BMP #### [address] [address] .GFRon 08-26-2024 Estimated Glomerular Filtration Rate 59 ml/min/1.73sqm Normal [facility] Comment on above: Result Comment: [...] A DIFF, CBC, ANEU, GFR, BMP #### [address] [address] .NEUABSon 08-26-2024 Neutrophil, Absolute 4.7 10 3/mcL Normal 2.3-8.1 [facility] Comment on above: Performed By: #### A DIFF, CBC, ANEU, GFR, BMP #### [place] [id number] BMPon 08-26-2024 BUN/Creatinine Ratio 35.1 ratio High 10.0-22.0 [facility] Comment on above: Performed By: #### A DIFF, CBC, ANEU, GFR, BMP #### [place] [id number] Calcium [Mass/Vol] 9.8 mg/dL Normal 8.7-10.4 [facility] Comment on above: Performed By: #### A DIFF, CBC, ANEU, GFR, BMP #### [place] [address] Chloride [Moles/Vol] 98 mmol/L Normal 98-110 [facility] Comment on above: Performed By: #### A DIFF, CBC, ANEU, GFR, BMP #### [place] [address] CO2 [Moles/Vol] 25 mmol/L Normal 22-32 [facility] Comment on above: Performed By: #### A DIFF, CBC, ANEU, GFR, BMP #### [place] [address] Creatinine [Mass/Vol] 0.97 mg/dL Normal 0.50-1.20 [facility] Comment on above: Result Comment: Test ing performed on [employer] analyzer using enzymatic creatinine methodology. Performed By: #### A DIFF, CBC, ANEU, GFR, BMP #### [place] [address] Electrolyte Balance 12.0 mEq/L Normal 4.0-15.0 [facility] Comment on above: Performed By: #### A DIFF, CBC, ANEU, GFR, BMP #### [place] [address] Glucose [Mass/Vol] 160 mg/dL High 82-115 [facility] Comment on above: Performed By: #### A DIFF, CBC, ANEU, GFR, BMP #### [place] [id number] Potassium [Moles/Vol] 4.7 mmol/L Normal 3.5-5.0 [place] [facility] Comment on above: Result Comment: Spec imen slightly hemolyzed. Performed By: #### A DIFF, CBC, ANEU, GFR, BMP #### [place] [address] Sodium [Moles/Vol] 135 mmol/L Low 136-145 [facility] MAIN Comment on above: Performed By: #### A DIFF, CBC, ANEU, GFR, BMP #### [place] [address] Urea nitrogen [Mass/Vol] 34.0 mg/dL High 8.0-22.0 [facility] MAIN Comment on above: Performed By: #### A DIFF, CBC, ANEU, GFR, BMP #### [place] [address] CBCon 08-26-2024 Erythrocyte distribution width (RBC) [Ratio] 14.0 % Normal 11.5-15.5 [facility] MAIN Comment on above: Performed By: #### A DIFF, CBC, ANEU, GFR, BMP #### [place] [address] Hematocrit (Bld) [Volume fraction] 41.0 % Normal 34.0-46.0 [facility] MAIN Comment on above: Performed By: #### A DIFF, CBC, ANEU, GFR, BMP #### [place] [address] Hgb 13.4 G/dL Normal 12.0-16.0 [facility] MAIN Comment on above: Performed By: #### A DIFF, CBC, ANEU, GFR, BMP #### [place] [address] MCH (RBC) [Entitic mass] 30.0 pg Normal 27.0-33.0 [facility] MAIN Comment on above: Performed By: #### A DIFF, CBC, ANEU, GFR, BMP #### [place] [address] MCHC 32.7 G/dL Normal 32.0-36.0 [facility] MAIN Comment on above: Performed By: #### A DIFF, CBC, ANEU, GFR, BMP #### [place] [address] MCV (RBC) [Entitic vol] 91.9 fL Normal 80.0-99.[address] [facility] MAIN Comment on above: Performed By: #### A DIFF, CBC, ANEU, GFR, BMP #### [place] [address] Platelet 297 10 3/mcL Normal 150-450 [facility] MAIN Comment on above: Performed By: #### A DIFF, CBC, ANEU, GFR, BMP #### [place] [address] Platelet mean volume (Bld) [Entitic vol] 11.0 fL High 6.6-10.5 [facility] MAIN Comment on above: Performed By: #### A DIFF, CBC, ANEU, GFR, BMP #### [place] [address] RBC 4.46 10 6/mcL Normal 4.10-5.30 [facility] MAIN Comment on above: Performed By: #### A DIFF, CBC, ANEU, GFR, BMP #### [place] [address] WBC 8.3 10 3/mcL Normal 4.5-10.8 [facility] MAIN Comment on above: Performed By: #### A DIFF, CBC, ANEU, GFR, BMP #### [place] [address] LABORATORYOrdered By: SYSTEM SYSTEM on 08-26-2024 Basophils [...] above: Interpretive Data: T esting performed on [email or web address] CH analyzer using enzymatic creatinine methodology. Electrolyte Balance [...] [facility] AND WRIST 6 VIEWS [...] Sign Date: 08/25/2024 2:27:26 PM Ordering Provider: [facility] MAIN XR HUMERUS MINIMUM 2 [...] Sign Date: 08/25/2024 2:26:11 PM Ordering Provider: [facility] MAIN XR SHOULDER MINIMUM 2 [...] 08/25/2024 2:26:45 PM Ordering Provider: JACKLYN LINDSEY [facility] MAIN LABORATORYOrdered By: Kala lux on 08-23-2024 Glucose [Mass/Vol] 278 mg/dL [facility] Work Phone: LABORATORYOrdered By: Kala lux on 08-22-2024 Glucose [Mass/Vol] 320 mg/dL [facility] Work Phone: A1Con 08-21-2024 Glucose [Mass/Vol] 194 mg/dL [facility] MAIN Comment on above: Result Comment: Nancy mated Average Glucose calculated by equation ((28.7xA1C)-46.7) Estimated average glucose (eAG) is a calculated value from Hemoglobin A1C and is sales representative of the average blood glucose level in the last 2-3 month period. Normal range: less than 114 mg/dL Performed By: #### A 1C #### [place] [address] HbA1c (Bld) [Mass fraction] 8.4 % High 4.0-6.0 [facility] MAIN Comment on above: Performed By: #### A 1C #### [place] [address] LABORATORYOrdered By: SYSTEM SYSTEM on 08-21-2024 Glucose [Mass/Vol] 194 mg/dL Invalid Interpretation Code Auto Chem SS Comment on above: Interpretive Data: E stimated average glucose (eAG) is a calculated value from Hemoglobin A1C and is sales representative of the average blood glucose level in the last 2-3 month period. Normal range: less than 114 mg/dL HbA1c (Bld) [Mass fraction] 8.4 % High 4.0 - 6.0 % Auto Chem SS .Auto Diffon 08-20-2024 Basophil, Absolute 0.1 10 3/mcL Normal 0.0-0.3 [facility] MAIN Comment on above: Performed By: #### B MP, ADIFF, CBC, GFR, ANEU #### [place] [address] Basophils/100 WBC (Bld) 1.1 % Normal 0.0-2.[address] [facility] MAIN Comment on above: Performed By: #### B MP, ADIFF, CBC, GFR, ANEU #### [address] [address] Eosinophil, Absolute 0.3 10 3/mcL Normal 0.0-0.7 [facility] MAIN Comment on above: Performed By: #### B MP, ADIFF, CBC, GFR, ANEU #### [address] [address] Eosinophils/100 WBC (Bld) 3.6 % Normal 0.0-6.0 [facility] MAIN Comment on above: Performed By: #### B MP, ADIFF, CBC, GFR, ANEU #### [address] [address] Lymphocyte, Absolute 1.7 10 3/mcL Normal 0.9-4.3 [facility] MAIN Comment on above: Performed By: #### B MP, ADIFF, CBC, GFR, ANEU #### [address] [address] Lymphocytes/100 WBC (Bld) 20.8 % Normal 20.0-40.0 [facility] MAIN Comment on above: Performed By: #### B MP, ADIFF, CBC, GFR, ANEU #### [address] [address] Monocyte, Absolute 0.9 10 3/mcL Normal 0.1-1.4 [facility] MAIN Comment on above: Performed By: #### B MP, ADIFF, CBC, GFR, ANEU #### [address] [address] Monocytes/100 WBC (Bld) 11.4 % Normal 2.0-13.[address] [facility] MAIN Comment on above: Performed By: #### B MP, ADIFF, CBC, GFR, ANEU #### [address] [address] Neutrophils/100 WBC (Bld) 63.1 % Normal 50.0-75.0 [facility] MAIN Comment on above: Performed By: #### B MP, ADIFF, CBC, GFR, ANEU #### [address] [address] .GFRon 08-20-2024 Estimated Glomerular Filtration Rate 55 ml/min/1.73sqm Normal [facility] MAIN Comment on above: Result Comment: [...] A DIFF, CBC, ANEU, GFR, BMP #### [address] [address] .NEUABSon 08-20-2024 Neutrophil, Absolute 5.1 10 3/mcL Normal 2.3-8.1 [facility] MAIN Comment on above: Performed By: #### B MP, ADIFF, CBC, GFR, ANEU #### [address] [address] BMPon 08-20-2024 BUN/Creatinine Ratio 29.8 ratio High 10.0-22.0 [facility] MAIN Comment on above: Performed By: #### B MP, ADIFF, CBC, GFR, ANEU #### [address] [address] Calcium [Mass/Vol] 9.8 mg/dL Normal 8.7-10.4 [facility] MAIN Comment on above: Performed By: #### B MP, ADIFF, CBC, GFR, ANEU #### [address] [address] Chloride [Moles/Vol] 95 mmol/L Low 98-110 [facility] MAIN Comment on above: Performed By: #### B MP, ADIFF, CBC, GFR, ANEU #### [address] [address] CO2 [Moles/Vol] 34 mmol/L High 22-32 [facility] MAIN Comment on above: Performed By: #### B MP, ADIFF, CBC, GFR, ANEU #### [address] [address] Creatinine [Mass/Vol] 1.04 mg/dL Normal 0.50-1.20 [facility] MAIN Comment on above: Result Comment: Test ing performed on [employer] analyzer using enzymatic creatinine methodology. Performed By: #### B MP, ADIFF, CBC, GFR, ANEU #### [address] [address] Electrolyte Balance 5.0 mEq/L Normal 4.0-15.0 [facility] MAIN Comment on above: Performed By: #### B MP, ADIFF, CBC, GFR, ANEU #### [place] [id number] Glucose [Mass/Vol] 244 mg/dL High 82-115 [facility] MAIN Comment on above: Performed By: #### B MP, ADIFF, CBC, GFR, ANEU #### [place] [id number] Potassium [Moles/Vol] 4.8 mmol/L Normal 3.5-5.0 [facility] MAIN Comment on above: Result Comment: Spec imen slightly hemolyzed. Performed By: #### B MP, ADIFF, CBC, GFR, ANEU #### [place] [id number] Sodium [Moles/Vol] 134 mmol/L Low 136-145 [facility] MAIN Comment on above: Performed By: #### B MP, ADIFF, CBC, GFR, ANEU #### [place] [id number] Urea nitrogen [Mass/Vol] 31.0 mg/dL High 8.0-22.0 [facility] MAIN Comment on above: Performed By: #### B MP, ADIFF, CBC, GFR, ANEU #### [address] [address] CBCon 08-20-2024 Erythrocyte distribution width (RBC) [Ratio] 14.0 % Normal 11.5-15.5 [facility] MAIN Comment on above: Performed By: #### B MP, ADIFF, CBC, GFR, ANEU #### [place] [address] Hematocrit (Bld) [Volume fraction] 41.9 % Normal 34.0-46.0 [facility] MAIN Comment on above: Performed By: #### B MP, ADIFF, CBC, GFR, ANEU #### [place] [address] Hgb 13.6 G/dL Normal 12.0-16.0 [facility] MAIN Comment on above: Performed By: #### B MP, ADIFF, CBC, GFR, ANEU #### [place] [address] MCH (RBC) [Entitic mass] 29.7 pg Normal 27.0-33.0 [facility] MAIN Comment on above: Performed By: #### B MP, ADIFF, CBC, GFR, ANEU #### [place] [address] MCHC 32.4 G/dL Normal 32.0-36.0 [facility] MAIN Comment on above: Performed By: #### B MP, ADIFF, CBC, GFR, ANEU #### [place] [address] MCV (RBC) [Entitic vol] 91.5 fL Normal 80.0-99.[address] [facility] MAIN Comment on above: Performed By: #### B MP, ADIFF, CBC, GFR, ANEU #### [place] [address] Platelet 301 10 3/mcL Normal 150-450 [facility] MAIN Comment on above: Performed By: #### B MP, ADIFF, CBC, GFR, ANEU #### [place] [address] Platelet mean volume (Bld) [Entitic vol] 11.0 fL High 6.6-10.5 [facility] MAIN Comment on above: Performed By: #### B MP, ADIFF, CBC, GFR, ANEU #### [place] [address] [place] [address] RBC 4.58 10 6/mcL Normal 4.10-5.30 [facility] MAIN Comment on above: Performed By: #### B MP, ADIFF, CBC, GFR, ANEU #### [facility] [address] [place] [address] WBC 8.1 10 3/mcL Normal 4.5-10.8 [facility] MAIN Comment on above: Performed By: #### B MP, ADIFF, CBC, GFR, ANEU #### [facility] [address] [place] [address] LABORATORYOrdered By: SYSTEM SYSTEM on 08-20-2024 Basophils (Bld) [#/Vol] 0.1 103/mcL Normal 0.0 - 0.3 10^3/mcL Workflow SS Basophils/100 WBC (Bld) 1.1 % Normal 0.0 - 2.5 % Workflow SS Calcium [Mass/Vol] 9.8 mg/dL Normal 8.7 - 10. 4 mg/dL ADM SS Chloride [Moles/Vol] 95 mmol/L Low 98 - 11 0 mEq/L ADM SS CO2 [Moles/Vol] 34 mmol/L High 22 - 32 mEq/L ADM SS Creatinine [Mass/Vol] 1.04 mg/dL Normal 0.50 - 1.20 mg/dL ADM SS Comment on above: Interpretive Data: T esting performed on [email or web address] CH analyzer using enzymatic creatinine methodology. Electrolyte Balance 5.0 mEq/L Normal 4.0 - 15 .0 mEq/L ADM SS Eosinophils (Bld) [#/Vol] 0.3 103/mcL Normal 0.0 - 0.7 10^3/mcL Workflow SS Eosinophils/100 WBC (Bld) 3.6 % Normal 0.0 - 6.0 % Workflow SS Erythrocyte distribution width (RBC) [Ratio] 14.0 % Normal 11.5 - 15.5 % Workflow SS Estimated Glomerular Filtration Rate 55 [...] 106/mcL Normal 4.10 - 5.3 0 10^6/mcL Workflow SS Sodium [Moles/Vol] 134 mmol/L Low [...] 08/18/2024 3:14:15 PM Ordering Provider: NANDO Anderson [facility] .Auto Diffon 08-16-2024 Basophil, Absolute 0.1 10 3/mcL Normal 0.0-0.3 [facility] MAIN Comment on above: Performed By: #### A DIFF, CBC, ANEU, GFR, BMP #### [address] [address] Basophils/100 WBC (Bld) 0.7 % Normal 0.0-2.[address] [facility] MAIN Comment on above: Performed By: #### A DIFF, CBC, ANEU, GFR, BMP #### [address] [address] Eosinophil, Absolute 0.3 10 3/mcL Normal 0.0-0.7 [facility] MAIN Comment on above: Performed By: #### A DIFF, CBC, ANEU, GFR, BMP #### [address] [address] Eosinophils/100 WBC (Bld) 2.1 % Normal 0.0-6.0 [facility] MAIN Comment on above: Performed By: #### A DIFF, CBC, ANEU, GFR, BMP #### [address] [address] Lymphocyte, Absolute 1.9 10 3/mcL Normal 0.9-4.3 [facility] MAIN Comment on above: Performed By: #### A DIFF, CBC, ANEU, GFR, BMP #### [address] [address] Lymphocytes/100 WBC (Bld) 14.8 % Low 20.0-40.0 [facility] MAIN Comment on above: Performed By: #### A DIFF, CBC, ANEU, GFR, BMP #### [address] [address] Monocyte, Absolute 1.2 10 3/mcL Normal 0.1-1.4 [facility] MAIN Comment on above: Performed By: #### A DIFF, CBC, ANEU, GFR, BMP #### [address] [address] Monocytes/100 WBC (Bld) 9.8 % Normal 2.0-13.[address] [facility] MAIN Comment on above: Performed By: #### A DIFF, CBC, ANEU, GFR, BMP #### [address] [address] Neutrophils/100 WBC (Bld) 72.6 % Normal 50.0-75.0 [facility] MAIN Comment on above: Performed By: #### A DIFF, CBC, ANEU, GFR, BMP #### [address] [address] .GFRon 08-16-2024 Estimated Glomerular Filtration Rate 58 ml/min/1.73sqm Normal [facility] MAIN Comment on above: Result Comment: [...] A DIFF, CBC, ANEU, GFR, BMP #### [address] [address] .NEUABSon 08-16-2024 Neutrophil, Absolute 9.2 10 3/mcL High 2.3-8.1 [facility] MAIN Comment on above: Performed By: #### A DIFF, CBC, ANEU, GFR, BMP #### [address] [address] BMPon 08-16-2024 BUN/Creatinine Ratio 34.3 ratio High 10.0-22.0 [facility] MAIN Comment on above: Performed By: #### A DIFF, CBC, ANEU, GFR, BMP #### [address] [address] Calcium [Mass/Vol] 9.0 mg/dL Normal 8.7-10.4 [facility] MAIN Comment on above: Performed By: #### A DIFF, CBC, ANEU, GFR, BMP #### [address] [address] Chloride [Moles/Vol] 100 mmol/L Normal 98-110 [facility] MAIN Comment on above: Performed By: #### A DIFF, CBC, ANEU, GFR, BMP #### [address] [address] CO2 [Moles/Vol] 30 mmol/L Normal 22-32 [facility] MAIN Comment on above: Performed By: #### A DIFF, CBC, ANEU, GFR, BMP #### [address] [address] Creatinine [Mass/Vol] 0.99 mg/dL Normal 0.50-1.20 [facility] MAIN Comment on above: Result Comment: Test ing performed on [employer] analyzer using enzymatic creatinine methodology. Performed By: #### A DIFF, CBC, ANEU, GFR, BMP #### [address] [address] Electrolyte Balance 5.0 mEq/L Normal 4.0-15.0 [facility] MAIN Comment on above: Performed By: #### A DIFF, CBC, ANEU, GFR, BMP #### [address] [address] Glucose [Mass/Vol] 259 mg/dL High 82-115 [facility] MAIN Comment on above: Performed By: #### A DIFF, CBC, ANEU, GFR, BMP #### [place] [address] Potassium [Moles/Vol] 5.0 mmol/L Normal 3.5-5.0 [facility] MAIN Comment on above: Performed By: #### A DIFF, CBC, ANEU, GFR, BMP #### [place] [address] Sodium [Moles/Vol] 135 mmol/L Low 136-145 [facility] MAIN Comment on above: Performed By: #### A DIFF, CBC, ANEU, GFR, BMP #### [place] [address] Urea nitrogen [Mass/Vol] 34.0 mg/dL High 8.0-22.0 [facility] MAIN Comment on above: Performed By: #### A DIFF, CBC, ANEU, GFR, BMP #### [address] [address] CBCon 08-16-2024 Erythrocyte distribution width (RBC) [Ratio] 13.7 % Normal 11.5-15.5 [facility] MAIN Comment on above: Performed By: #### A DIFF, CBC, ANEU, GFR, BMP #### [place] [id number] Hematocrit (Bld) [Volume fraction] 43.3 % Normal 34.0-46.0 [facility] MAIN Comment on above: Performed By: #### A DIFF, CBC, ANEU, GFR, BMP #### [address] [address] Hgb 13.9 G/dL Normal 12.0-16.0 [facility] MAIN Comment on above: Performed By: #### A DIFF, CBC, ANEU, GFR, BMP #### [address] [address] MCH (RBC) [Entitic mass] 30.0 pg Normal 27.0-33.0 [facility] MAIN Comment on above: Performed By: #### A DIFF, CBC, ANEU, GFR, BMP #### [address] [address] MCHC 32.1 G/dL Normal 32.0-36.0 [facility] MAIN Comment on above: Performed By: #### A DIFF, CBC, ANEU, GFR, BMP #### [address] [address] MCV (RBC) [Entitic vol] 93.6 fL Normal 80.0-99.[address] [facility] MAIN Comment on above: Performed By: #### A DIFF, CBC, ANEU, GFR, BMP #### [address] [address] Platelet 230 10 3/mcL Normal 150-450 [facility] MAIN Comment on above: Performed By: #### A DIFF, CBC, ANEU, GFR, BMP #### [address] [address] Platelet mean volume (Bld) [Entitic vol] 10.7 fL High 6.6-10.5 [facility] MAIN Comment on above: Performed By: #### A DIFF, CBC, ANEU, GFR, BMP #### [address] [address] RBC 4.63 10 6/mcL Normal 4.10-5.30 [facility] MAIN Comment on above: Performed By: #### A DIFF, CBC, ANEU, GFR, BMP #### [address] [address] WBC 12.7 10 3/mcL High 4.5-10.8 [facility] MAIN Comment on above: Performed By: #### A DIFF, CBC, ANEU, GFR, BMP #### [facility] [address] [place] [address] LABORATORYOrdered By: Marily Panda on 08-16-2024 Blood Glucose Interventions Administered agent to decrease blood sugar (08/16/24 12:23 PM) Louise Desti Work Phone: Blood Glucose Interventions Retest (08/16/24 10:15 AM) [employer] Work Phone: Bacteria identified Cx Nom ( Bld)on 08-15-2024 Bacteria identified Cx Nom (Unsp spec) NO GROWTH DAY 5 OF 5 [facility] CARDIAC RHYTHMon 08-15-2024 [facility] CBC,PLATELETSon 08-15-2024 Erythrocyte distribution width (RBC) [Ratio] 13.4 % 10.8 - 14.9 % [facility] Hematocrit (Bld) [Volume fraction] 43.8 % 34.9 - 44.3 % [facility] Hemoglobin (Bld) [Mass/Vol] 13.5 g/dL 11.4 - 15.2 g/dL [facility] Interpretation and review of laboratory results Abnormal [facility] MCH (RBC) [Entitic mass] 28.9 pg 25.9 - 33.9 pg [facility] MCHC (RBC) [Mass/Vol] 30.8 g/dL Low 31.4 - 35.9 g/dL [facility] MCV (RBC) [Entitic vol] 93.8 fL 79.6 - 97.7 fL [facility] Platelet mean volume (Bld) [Entitic vol] 12 fL 8.5 - 12.2 fL [facility] Platelets (Bld) [#/Vol] 252 10*3/uL 150 - 393 K/uL [facility] RBC (Bld) [#/Vol] 4.67 10*6/uL [facility] WBC (Bld) [#/Vol] 11.94 10*3/uL High 3.99 - 11.19 K/uL [facility] Hematocrit (Bld) [Volume fraction] 43.8 % Normal 34.9-44.3 [facility] Comment on above: Performed By: #### X M #### [facility] (DEFAULT) [address] [place] [address] Hemoglobin (Bld) [Mass/Vol] 13.5 g/dL Normal 11.4-15.2 [facility] Comment on above: Performed By: #### X M #### [facility] (DEFAULT) [address] [place] [address] MCV (RBC) [Entitic vol] 93.8 fL Normal 79.6-97.7 [facility] Comment on above: Performed By: #### X M #### [facility] (DEFAULT) [address] [place] [address] Mean Cell Hgb 28.9 pg Normal 25.9-33.9 [facility] Comment on above: Performed By: #### X M #### [facility] (DEFAULT) [address] [place] [address] Mean Cell Hgb Conc 30.8 g/dL Low 31.4-35.9 [facility] Comment on above: Performed By: #### X M #### [facility] (DEFAULT) [address] [place] [address] Platelet mean volume (Bld) [Entitic vol] 12.0 fL Normal 8.5-12.2 [facility] Comment on above: Performed By: #### X M #### [facility] (DEFAULT) [address] [place] [address] Platelets (Bld) [#/Vol] 252 10*3/uL Normal 150-393 [facility] Comment on above: Performed By: #### X M #### [facility] (DEFAULT) [address] [place] [address] RBC (Bld) [#/Vol] 4.67 10*6/uL Normal 3.91-5.04 [facility] Comment on above: Performed By: #### X M #### [facility] (DEFAULT) [address] [place] [address] RBC Distribution 13.4 % Normal 10.8-14.9 [facility] Comment on above: Performed By: #### X M #### [facility] (DEFAULT) [address] [place] [address] WBC (Bld) [#/Vol] 11.94 10*3/uL High 3.99-11.19 [facility] Comment on above: Performed By: #### X M #### [facility] (DEFAULT) [address] [place] [address] CHEM 7 (LYTES,BUN,CREA,GLUC) on 08-15-2024 Anion gap [Moles/Vol] 16 mmol/L 7 - 17 mmol/L [facility] Chloride [Moles/Vol] 99 mmol/L 98 - 10 8 mmol/L [facility] CO2 [Moles/Vol] 25 mmol/L 21 - 31 mmol/L [facility] Creatinine [Mass/Vol] 1.27 mg/dL High 0.50 - 1.20 mg/dL [facility] eGFR, CKD-EPI, Female 43 Low - PINF [facility] Glucose [Mass/Vol] 214 mg/dL High 70 - 179 mg/dL [facility] Interpretation and review of laboratory results Abnormal [facility] Osmolality Calc [Osmolality] 306 High [facility] Potassium [Moles/Vol] 4.8 mmol/L 3.5 - 5.0 mmol/L [facility] Sodium [Moles/Vol] 135 mmol/L 135 - 145 mmol/L [facility] Urea nitrogen [Mass/Vol] 51 mg/dL High 7 - 25 mg/dL [facility] Urea nitrogen/Creatinine [Mass ratio] 40 mg/mg [facility] Anion gap [Moles/Vol] 16 mmol/L Normal 7-17 [facility] Comment on above: Performed By: #### H EMO #### [facility] (DEFAULT) [address] [place] [address] Chloride [Moles/Vol] 99 mmol/L Normal 98-108 [facility] Comment on above: Performed By: #### H EMO #### [facility] (DEFAULT) [address] [place] [address] CO2 [Moles/Vol] 25 mmol/L Normal 21-31 [facility] Comment on above: Performed By: #### H EMO #### [facility] (DEFAULT) [address] [place] [address] Creatinine [Mass/Vol] 1.27 mg/dL High 0.50-1.20 [facility] Comment on above: Performed By: #### H [facility] #### [facility] (DEFAULT) [address] [place] [address] GFR/1.73 sq M.predicted among non-blacks MDRD (S/P/Bld) [Vol rate/Area] 43 mL/min/{1.73_m2} Low >=60 [facility] Comment on above: Result Comment: Repo rted eGFR is based on the CKD-EPI 2020 equation using creatinine, age, and sex. Performed By: #### H EMO #### [facility] (DEFAULT) [address] [place] [address] Glucose [Mass/Vol] 214 mg/dL High Nonfastin -179 mg/dL; Fastin-99 [facility] Comment on above: Performed By: #### H EMO #### [facility] (DEFAULT) [address] [place] [address] Osmolality [Osmolality] 306 mosm/kg High 278-305 [facility] Comment on above: Performed By: #### H EMO #### [facility] (DEFAULT) [address] [place] [address] Potassium [Moles/Vol] 4.8 mmol/L Normal 3.5-5.0 [facility] Comment on above: Performed By: #### H EMOGC #### [facility] (DEFAULT) [address] [place] [address] Sodium [Moles/Vol] 135 mmol/L Normal 135-145 [facility] Comment on above: Performed By: #### H EMOGC #### [facility] (DEFAULT) [address] [place] [address] Urea nitrogen [Mass/Vol] 51 mg/dL High 7-25 [facility] Comment on above: Performed By: #### H EMOGC #### [facility] (DEFAULT) [address] [place] [address] Urea nitrogen/Creatinine [Mass ratio] 40 mg/mg Normal [facility] Comment on above: Performed By: #### H EMOGC #### [facility] (DEFAULT) [address] [place] [address] GLUCOSE POCon 08-15-2024 Glucose [Mass/Vol] 190 mg/dL High 70 - 179 mg/dL [facility] Interpretation and review of laboratory results Abnormal [facility] POC Sample Type [facility] Glucose [Mass/Vol] 146 mg/dL 70 - 179 mg/dL [facility] POC Sample Type CAPBL [facility] Glucose [Mass/Vol] 215 mg/dL High 70 - 179 mg/dL [facility] Interpretation and review of laboratory results Abnormal [facility] POC [facility] MAGNESIUMon 08-15-2024 Interpretation and review of laboratory results Normal [facility] Magnesium [Mass/Vol] 1.6 mg/dL 1.6 - 2 .6 mg/dL [facility] Magnesium [Mass/Vol] 1.6 mg/dL Normal 1.6-2.6 [facility] Comment on above: Performed By: #### [facility] #### [facility] (DEFAULT) [address] [place] [address] No Panel Informationon 08-15 [facility] CBC,PLATELETSon 08-14-2024 Erythrocyte distribution width (RBC) [Ratio] 13.4 % 10.8 - 14.9 % [facility] Hematocrit (Bld) [Volume fraction] 47.9 % High 34.9 - 44.3 % [facility] Hemoglobin (Bld) [Mass/Vol] 14.3 g/dL 11.4 - 15.2 g/dL [facility] Interpretation and review of laboratory results Abnormal [facility] MCH (RBC) [Entitic mass] 29.3 pg 25.9 - 33.9 pg [facility] MCHC (RBC) [Mass/Vol] 29.9 g/dL Low 31.4 - 35.9 g/dL [facility] MCV (RBC) [Entitic vol] 98.2 fL High 79.6 - 97.7 fL [facility] Platelet mean volume (Bld) [Entitic vol] 11.3 fL 8.5 - 12.2 fL [facility] Platelets (Bld) [#/Vol] 229 10*3/uL 150 - 393 K/uL [facility] RBC (Bld) [#/Vol] 4.88 10*6/uL [facility] WBC (Bld) [#/Vol] 12.14 10*3/uL High 3.99 - 11.19 K/uL [facility] Hematocrit (Bld) [Volume fraction] 47.9 % High 34.9-44.3 [facility] Comment on above: Performed By: #### X M #### [facility] (DEFAULT) [address] [place] [address] Hemoglobin (Bld) [Mass/Vol] 14.3 g/dL Normal 11.4-15.2 [facility] Comment on above: Performed By: #### X M #### [facility] (DEFAULT) [address] [place] [address] MCV (RBC) [Entitic vol] 98.2 fL High 79.6-97.7 [facility] Comment on above: Performed By: #### X M #### [facility] (DEFAULT) [address] [place] [address] 14419 Mean Cell Hgb 29.3 pg Normal 25.9-33.9 [facility] Comment on above: Performed By: #### X M #### [facility] (DEFAULT) [address] [place] [address]18 Mean Cell Hgb Conc 29.9 g/dL Low 31.4-35.9 [facility] Comment on above: Performed By: #### X M #### [facility] (DEFAULT) [address] [place] [address]557 Platelet mean volume (Bld) [Entitic vol] 11.3 fL Normal 8.5-12.2 [facility] Comment on above: Performed By: #### X M #### [facility] (DEFAULT) [address] [place] [address] 99104 Platelets (Bld) [#/Vol] 229 10*3/uL Normal 150-393 [facility] Comment on above: Performed By: #### X M #### [facility] (DEFAULT) [address] [place] [address] 32430 RBC (Bld) [#/Vol] 4.88 10*6/uL Normal 3.91-5.04 [facility] Comment on above: Performed By: #### X M #### [facility] (DEFAULT) [address] [place] [address] 57995 RBC Distribution 13.4 % Normal 10.8-14.9 [facility] Comment on above: Performed By: #### X M #### [facility] (DEFAULT) [address] [place] [address]68 WBC (Bld) [#/Vol] 12.14 10*3/uL High 3.99-11.19 [facility] Comment on above: Performed By: #### X M #### [facility] (DEFAULT) [address] [place] [address] CHEM 7 (LYTES,BUN,CREA,GLUC) on 08-14-2024 Anion gap [Moles/Vol] 16 mmol/L 7 - 17 mmol/L [facility] Chloride [Moles/Vol] 101 mmol/L 98 - 10 8 mmol/L [facility] CO2 [Moles/Vol] 23 mmol/L 21 - 31 mmol/L [facility] Creatinine [Mass/Vol] 1.15 mg/dL 0.50 - 1.20 mg/dL [facility] eGFR, CKD-EPI, Female 48 Low - PINF [facility] Glucose [Mass/Vol] 208 mg/dL High 70 - 179 mg/dL [facility] Interpretation and review of laboratory results Abnormal [facility] Osmolality Calc [Osmolality] 304 [facility] Potassium [Moles/Vol] 4.7 mmol/L 3.5 - 5.0 mmol/L [facility] Sodium [Moles/Vol] 135 mmol/L 135 - 145 mmol/L [facility] Urea nitrogen [Mass/Vol] 47 mg/dL High 7 - 25 mg/dL [facility] Urea nitrogen/Creatinine [Mass ratio] 41 mg/mg [facility] Anion gap [Moles/Vol] 16 mmol/L Normal 7-17 [facility] Comment on above: Performed By: #### B LDCULT #### [facility] (DEFAULT) [address] [place] [address] Chloride [Moles/Vol] 101 mmol/L Normal 98-108 [facility] Comment on above: Performed By: #### B LDCULT #### [facility] (DEFAULT) [address] [place] [address] CO2 [Moles/Vol] 23 mmol/L Normal 21-31 [facility] Comment on above: Performed By: #### B LDCULT #### [facility] (DEFAULT) [address] [place] [address] 23947 Creatinine [Mass/Vol] 1.15 mg/dL Normal 0.50-1.20 [facility] Comment on above: Performed By: #### B LDCULT #### [facility] (DEFAULT) [address] [place] [address] 92360 GFR/1.73 sq M.predicted among non-blacks MDRD (S/P/Bld) [Vol rate/Area] 48 mL/min/{1.73_m2} Low >=60 [facility] Comment on above: Result Comment: Repo rted eGFR is based on the CKD-EPI 2020 equation using creatinine, age, and sex. Performed By: #### B LDCULT #### [facility] (DEFAULT) [address] [address] Glucose [Mass/Vol] 208 mg/dL High Nonfastin -179 mg/dL; Fastin-99 [facility] Comment on above: Performed By: #### B LDCULT #### [facility] (DEFAULT) [address] [address] Osmolality [Osmolality] 304 mosm/kg Normal 278-305 [facility] Comment on above: Performed By: #### B LDCULT #### [facility] (DEFAULT) [address] [place] [address] Potassium [Moles/Vol] 4.7 mmol/L Normal 3.5-5.0 [facility] Comment on above: Performed By: #### B LDCULT #### [facility] (DEFAULT) [address] [place] [address] 40598 Sodium [Moles/Vol] 135 mmol/L Normal 135-145 [facility] Comment on above: Performed By: #### B LDCULT #### [facility] (DEFAULT) [address] [place] [address] Urea nitrogen [Mass/Vol] 47 mg/dL High 7-25 [facility] Comment on above: Performed By: #### B LDCULT #### [facility] (DEFAULT) [address] [place] [address] Urea nitrogen/Creatinine [Mass ratio] 41 mg/mg Normal [facility] Comment on above: Performed By: #### B LDCULT #### [facility] (DEFAULT) [address] [place] [address] GLUCOSE POCon 08-14-2024 Glucose [Mass/Vol] 204 mg/dL High 70 - 179 mg/dL [facility] Interpretation and review of laboratory results Abnormal [facility] POC Sample Type CAPBL [facility] Glucose [Mass/Vol] 264 mg/dL High 70 - 179 mg/dL [facility] Interpretation and review of laboratory results Abnormal [facility] POC Sample Type CAPBL [facility] Glucose [Mass/Vol] 189 mg/dL High 70 - 179 mg/dL [facility] Interpretation and review of laboratory results Abnormal [facility] POC Sample Type CAPBL [facility] MAGNESIUMon 08-14-2024 Interpretation and review of laboratory results Normal [facility] Magnesium [Mass/Vol] 1.6 mg/dL 1.6 - 2 .6 mg/dL [facility] Magnesium [Mass/Vol] 1.6 mg/dL Normal 1.6-2.6 [facility] Comment on above: Performed By: #### B LDCULT #### [facility] (DEFAULT) [address] [place] [address] No Panel Informationon 08-14 [facility] CBC,PLATELETSon 08-13-2024 Erythrocyte distribution width (RBC) [Ratio] 13.4 % 10.8 - 14.9 % [facility] Hematocrit (Bld) [Volume fraction] 45.7 % High 34.9 - 44.3 % [facility] Hemoglobin (Bld) [Mass/Vol] 14.3 g/dL 11.4 - 15.2 g/dL [facility] Interpretation and review of laboratory results Abnormal [facility] MCH (RBC) [Entitic mass] 29.5 pg 25.9 - 33.9 pg [facility] MCHC (RBC) [Mass/Vol] 31.3 g/dL Low 31.4 - 35.9 g/dL [facility] MCV (RBC) [Entitic vol] 94.2 fL 79.6 - 97.7 fL [facility] Platelet mean volume (Bld) [Entitic vol] 11.7 fL 8.5 - 12.2 fL [facility] Platelets (Bld) [#/Vol] 245 10*3/uL 150 - 393 K/uL [facility] RBC (Bld) [#/Vol] 4.85 10*6/uL [facility] WBC (Bld) [#/Vol] 12.02 10*3/uL High 3.99 - 11.19 K/uL [facility] Hematocrit (Bld) [Volume fraction] 45.7 % High 34.9-44.3 [facility] Comment on above: Performed By: #### [facility] #### [facility] (DEFAULT) [address] [address] Hemoglobin (Bld) [Mass/Vol] 14.3 g/dL Normal 11.4-15.2 [facility] Comment on above: Performed By: #### [facility] #### [facility] (DEFAULT) [address] [place] [address]161 MCV (RBC) [Entitic vol] 94.2 fL Normal 79.6-97.7 [facility] Comment on above: Performed By: #### [facility] #### [facility] (DEFAULT) [address] [place] [address] 29899 Mean Cell Hgb 29.5 pg Normal 25.9-33.9 [facility] Comment on above: Performed By: #### H EMOGC #### [facility] (DEFAULT) [address] [address] Mean Cell Hgb Conc 31.3 g/dL Low 31.4-35.9 [facility] Comment on above: Performed By: #### H EMOGC #### [facility] (DEFAULT) [address] [place] [address] 9[address]45 Platelet mean volume (Bld) [Entitic vol] 11.7 fL Normal 8.5-12.2 [facility] Comment on above: Performed By: #### H EMOGC #### [facility] (DEFAULT) [address] [address] Platelets (Bld) [#/Vol] 245 10*3/uL Normal 150-393 [facility] Comment on above: Performed By: #### H EMOGC #### [facility] (DEFAULT) [address] [address] RBC (Bld) [#/Vol] 4.85 10*6/uL Normal 3.91-5.04 [facility] Comment on above: Performed By: #### H EMOGC #### [facility] (DEFAULT) [address] [address] RBC Distribution 13.4 % Normal 10.8-14.9 [facility] Comment on above: Performed By: #### H EMOGC #### [facility] (DEFAULT) [address] [address] WBC (Bld) [#/Vol] 12.02 10*3/uL High 3.99-11.19 [facility] Comment on above: Performed By: #### H EMOGC #### [facility] (DEFAULT) [address] [place] [address] CHEM 7 (LYTES,BUN,CREA,GLUC) on 08-13-2024 Anion gap [Moles/Vol] 15 mmol/L 7 - 17 mmol/L [facility] Chloride [Moles/Vol] 104 mmol/L 98 - 10 8 [facility] CO2 [Moles/Vol] 23 mmol/L 21 - 31 mmol/L [facility] Creatinine [Mass/Vol] 1.18 mg/dL 0.50 - 1.20 mg/dL [facility] eGFR, CKD-EPI, Female 47 Low - PINF [facility] Glucose [Mass/Vol] 225 mg/dL High 70 - 179 mg/dL [facility] Interpretation and review of laboratory results Abnormal [facility] Osmolality Calc [Osmolality] 311 High [facility] Potassium [Moles/Vol] 4.6 mmol/L 3.5 - 5.0 mmol/L [facility] Sodium [Moles/Vol] 137 mmol/L 135 - 145 mmol/L [facility] Urea nitrogen [Mass/Vol] 55 mg/dL High 7 - 25 mg/dL [facility] Urea nitrogen/Creatinine [Mass ratio] 47 mg/mg [facility] Anion gap [Moles/Vol] 15 mmol/L Normal 7-17 [facility] Comment on above: Performed By: #### [facility] #### [facility] (DEFAULT) [address] [place] [address]79 Chloride [Moles/Vol] 104 mmol/L Normal 98-108 [facility] Comment on above: Performed By: #### [facility] #### [facility] (DEFAULT) [address] [place] [address] CO2 [Moles/Vol] 23 mmol/L Normal 21-31 [facility] Comment on above: Performed By: #### [facility] #### [facility] (DEFAULT) [address] [place] [address] Creatinine [Mass/Vol] 1.18 mg/dL Normal 0.50-1.20 [facility] Comment on above: Performed By: #### H EMOGC #### [facility] (DEFAULT) [address] [place] [address] 58866 GFR/1.73 sq M.predicted among non-blacks MDRD (S/P/Bld) [Vol rate/Area] 47 mL/min/{1.73_m2} Low >=60 [facility] Comment on above: Result Comment: Repo rted eGFR is based on the CKD-EPI 2020 equation using creatinine, age, and sex. Performed By: #### H EMOGC #### [facility] (DEFAULT) [address] [place] [address]34 Glucose [Mass/Vol] 225 mg/dL High Nonfastin -179 mg/dL; Fastin-99 [facility] Comment on above: Performed By: #### H EMOGC #### [facility] (DEFAULT) [address] [place] [address] Osmolality [Osmolality] 311 mosm/kg High 278-305 [facility] Comment on above: Performed By: #### H EMOGC #### [facility] (DEFAULT) [address] [place] [address] 7[address]99 Potassium [Moles/Vol] 4.6 mmol/L Normal 3.5-5.0 [facility] Comment on above: Performed By: #### H EMOGC #### [facility] (DEFAULT) [address] [place] [address] 74589 Sodium [Moles/Vol] 137 mmol/L Normal 135-145 [facility] Comment on above: Performed By: #### H EMOGC #### [facility] (DEFAULT) [address] [address] Urea nitrogen [Mass/Vol] 55 mg/dL High 7-25 [facility] Comment on above: Performed By: #### H EMOGC #### [facility] (DEFAULT) [address] [place] [address] Urea nitrogen/Creatinine [Mass ratio] 47 mg/mg Normal [facility] Comment on above: Performed By: #### [facility] #### [facility] (DEFAULT) [address] [place] [address] GLUCOSE POCon 08-13-2024 Glucose [Mass/Vol] 195 mg/dL High 70 - 179 mg/dL [facility] Interpretation and review of laboratory results Abnormal [facility] POC [facility] Glucose [Mass/Vol] 198 mg/dL High 70 - 179 mg/dL [facility] Interpretation and review of laboratory results Abnormal [facility] POC Sample Type CAPBL [facility] Glucose [Mass/Vol] 158 mg/dL 70 - 179 mg/dL [facility] POC Sample [facility] Glucose [Mass/Vol] 211 mg/dL High 70 - 179 mg/dL [facility] Interpretation and review of laboratory results Abnormal [facility] POC Sample Type [facility] Glucose [Mass/Vol] 240 mg/dL High 70 - 179 mg/dL [facility] Interpretation and review of laboratory results Abnormal [facility] POC Sample Type CAPBL [facility] MAGNESIUMon 08-13-2024 Interpretation and review of laboratory results Normal [facility] Magnesium [Mass/Vol] 1.8 mg/dL 1.6 - 2 .6 mg/dL [facility] Magnesium [Mass/Vol] 1.8 mg/dL Normal 1.6-2.6 [facility] Comment on above: Performed By: #### [facility] #### [facility] (DEFAULT) [address] [place] [address] No Panel Informationon 08-13 [facility] CBC,PLATELETSon 08-12-2024 Erythrocyte distribution width (RBC) [Ratio] 13.6 % 10.8 - 14.9 % [facility] Hematocrit (Bld) [Volume fraction] 45.1 % High 34.9 - 44.3 % [facility] Hemoglobin (Bld) [Mass/Vol] 14.3 g/dL 11.4 - 15.2 g/dL [facility] Interpretation and review of laboratory results Abnormal [facility] MCH (RBC) [Entitic mass] 29.7 pg 25.9 - 33.9 pg [facility] MCHC (RBC) [Mass/Vol] 31.7 g/dL 31.4 - 35.9 g/dL [facility] MCV (RBC) [Entitic vol] 93.6 fL 79.6 - 97.7 fL [facility] Platelet mean volume (Bld) [Entitic vol] 11.4 fL 8.5 - 12.2 fL [facility] Platelets (Bld) [#/Vol] 241 10*3/uL 150 - 393 K/uL [facility] RBC (Bld) [#/Vol] 4.82 10*6/uL [facility] WBC (Bld) [#/Vol] 14.32 10*3/uL High 3.99 - 11.19 K/uL [facility] Hematocrit (Bld) [Volume fraction] 45.1 % High 34.9-44.3 [facility] Comment on above: Performed By: #### [facility] #### [facility] (DEFAULT) [address] [place] [address] Hemoglobin (Bld) [Mass/Vol] 14.3 g/dL Normal 11.4-15.2 [facility] Comment on above: Performed By: #### [facility] #### [facility] (DEFAULT) [address] [place] [address] 6[address]70 MCV (RBC) [Entitic vol] 93.6 fL Normal 79.6-97.7 [facility] Comment on above: Performed By: #### H EMOGC #### [facility] (DEFAULT) [address] [address] Mean Cell Hgb 29.7 pg Normal 25.9-33.9 [facility] Comment on above: Performed By: #### H EMOGC #### [facility] (DEFAULT) [address] [address] Mean Cell Hgb Conc 31.7 g/dL Normal 31.4-35.9 [facility] Comment on above: Performed By: #### H EMOGC #### [facility] (DEFAULT) [address] [address] Platelet mean volume (Bld) [Entitic vol] 11.4 fL Normal 8.5-12.2 [facility] Comment on above: Performed By: #### H EMOGC #### [facility] (DEFAULT) [address] [address] Platelets (Bld) [#/Vol] 241 10*3/uL Normal 150-393 [facility] Comment on above: Performed By: #### H EMOGC #### [facility] (DEFAULT) [address] [address] RBC (Bld) [#/Vol] 4.82 10*6/uL Normal 3.91-5.04 [facility] Comment on above: Performed By: #### H EMOGC #### [facility] (DEFAULT) [address] [address] RBC Distribution 13.6 % Normal 10.8-14.9 [facility] Comment on above: Performed By: #### H EMOGC #### [facility] (DEFAULT) [address] [address] WBC (Bld) [#/Vol] 14.32 10*3/uL High 3.99-11.19 [facility] Comment on above: Performed By: #### H EMOGC #### [facility] [address] [place] [address] CHEM 7 (LYTES,BUN,CREA,GLUC) on 08-12-2024 Anion gap [Moles/Vol] 15 mmol/L 7 - 17 mmol/L [facility] Chloride [Moles/Vol] 104 mmol/L 98 - 10 8 mmol/L [facility] CO2 [Moles/Vol] 27 mmol/L 21 - 31 mmol/L [facility] Creatinine [Mass/Vol] 1.36 mg/dL High 0.50 - 1.20 mg/dL [facility] eGFR, CKD-EPI, Female 40 Low - PINF [facility] Glucose [Mass/Vol] 126 mg/dL 70 - 179 mg/dL [facility] Interpretation and review of laboratory results Abnormal [facility] Osmolality Calc [Osmolality] 313 High [facility] Potassium [Moles/Vol] 4.5 mmol/L 3.5 - 5.0 mmol/L [facility] Sodium [Moles/Vol] 141 mmol/L 135 - 145 mmol/L [facility] Urea nitrogen [Mass/Vol] 56 mg/dL High 7 - 25 mg/dL [facility] Urea nitrogen/Creatinine [Mass ratio] 41 mg/mg [facility] Anion gap [Moles/Vol] 15 mmol/L Normal 7-17 [facility] Comment on above: Performed By: #### T YPEC #### [facility] (DEFAULT) [address] [place] [address] Chloride [Moles/Vol] 104 mmol/L Normal 98-108 [facility] Comment on above: Performed By: #### T YPEC #### [facility] (DEFAULT) [address] [place] [address] CO2 [Moles/Vol] 27 mmol/L Normal 21-31 [facility] Comment on above: Performed By: #### T YPEC #### [facility] (DEFAULT) [address] [place] [address] Creatinine [Mass/Vol] 1.36 mg/dL High 0.50-1.20 [facility] Comment on above: Performed By: #### T YPEC #### [facility] (DEFAULT) [address] [address] GFR/1.73 sq M.predicted among non-blacks MDRD (S/P/Bld) [Vol rate/Area] 40 mL/min/{1.73_m2} Low >=60 [facility] Comment on above: Result Comment: Repo rted eGFR is based on the CKD-EPI 2020 equation using creatinine, age, and sex. Performed By: #### T YPEC #### [facility] (DEFAULT) [address] [address] Glucose [Mass/Vol] 126 mg/dL Normal Nonfastin -179 mg/dL; Fastin-99 [facility] Comment on above: Performed By: #### T YPEC #### [facility] (DEFAULT) [address] [address] Osmolality [Osmolality] 313 mosm/kg High 278-305 [facility] Comment on above: Performed By: #### T YPEC #### [facility] (DEFAULT) [address] [address] Potassium [Moles/Vol] 4.5 mmol/L Normal 3.5-5.0 [facility] Comment on above: Performed By: #### T YPEC #### [facility] (DEFAULT) [address] [address] Sodium [Moles/Vol] 141 mmol/L Normal 135-145 [facility] Comment on above: Performed By: #### T YPEC #### [facility] (DEFAULT) [address] [address] Urea nitrogen [Mass/Vol] 56 mg/dL High 7-25 [facility] Comment on above: Performed By: #### T YPEC #### [facility] (DEFAULT) [address] [place] [address] Urea nitrogen/Creatinine [Mass ratio] 41 mg/mg Normal [facility] Comment on above: Performed By: #### T YPEC #### [facility] (DEFAULT) [address] [place] [address] GLUCOSE POCon 08-12-2024 Glucose [Mass/Vol] 231 mg/dL High 70 - 179 mg/dL [facility] Interpretation and review of laboratory results Abnormal [facility] POC Sample Type CAPBL [facility] Glucose [Mass/Vol] 208 mg/dL High 70 - 179 mg/dL [facility] Interpretation and review of laboratory results Abnormal [facility] POC Sample Type CAPBL [facility] Glucose [Mass/Vol] 160 mg/dL 70 - 179 mg/dL [facility] POC Sample Type CAPBL [facility] Glucose [Mass/Vol] 107 mg/dL 70 - 179 mg/dL [facility] POC Sample Type CAPBL [facility] MAGNESIUMon 08-12-2024 Interpretation and review of laboratory results Normal [facility] Magnesium [Mass/Vol] 2.2 mg/dL 1.6 - 2 .6 mg/dL [facility] Magnesium [Mass/Vol] 2.2 mg/dL Normal 1.6-2.6 [facility] Comment on above: Performed By: #### T YPEC #### [facility] (DEFAULT) [address] [place] [address] No Panel Informationon 08-12 [facility] SURG PATH REQUESTOrdered By: Renae Glez on 08-12-2024 Case Report [facility] Clinical History [id number] kMiFYUfuQRsiZH1OMGkLY4f hpqiLPqeBGoaZWJdyfS0MFM ddLHvS5LdIJVhOE1ktgyqDZ K1MOpbJTAkJBD8XgOhXAHhg 9Movdg4UuJmvSa6w6voWQKa UCTflBdeq3jnQCJ1WDOtwWI fL6aaoH6cXWWyDH4lzslkn5 uxLQbzFFfeVPNxeFA4voS2R ULxqPLjF5KqhN1xMACoEMSk lyVpgYdrcV4yVfKjILfyBpX qZi7YLMqGGaJnBOHto4OoQY YnPNADtCVcra3zvDK1MPVKb 45wLfCyGQNqhDUwlXFXeWD9 z6X8ShOwXv5wsMHdvPYmzUN ovAA3t7D7BJAch9AxSSTiZx xwYXJ9 [facility] For Immediate Release to Patient's MyChart? Yes Yes [facility] Gross Description m8urhOOjHVTzw6wsBXOa bGF uZzEwMzNcZnRuYmpcdWMxIH tccnRmMVxlcGljMTExMDVcY C6wrUlaoNm4cFffZFRilzS5 lDDmNIyap6scPXW1s8yarbj oKLMeWUfkVt4yxLUigFyiOw AbMJJiJIg5qC21BZFepH3xg UXlWAcjojXkHOGqI7GoPY8z LJudoXAaCVV9sEpkAYCjpkp bGrV5JWeqTUAfvfryDVx3QY vuOIAsfYY9YZCqoDNwR7PoU DHcHW1lohq9IJC4YEdzFZWo KiD6JZDlfPXwPCYyjNntPYc qi842ALP2HrEeBDKhbrVwpY ngtH7rHtLlMODNyWLgv2WqE 4haNX4dqQPihiWdWJh6IAMd oF9lh16yCTIyo3Zrybr5YMa pBuAuULNfL50pfNPlqdUsBT dpdGggdGhlIHBhdGllbnQnc dYcSU4cNBPaAWOfV9Pbz0Qm u30uzeJkWqMjJhNckMAuKJO ygwbtEjQfDPhqTdUrThx2MG IgVGhlIHNwZWNpbWVuIGlzI NOwa0vxqgH6WQIpOhspu3Zt jSZjDZAjdnHreNXrIP0pEXO xruNgf2LbFB4mOTUeyfJlIq HcG18jhhCcVS6fWZQisu8fk T0bZOXrAwEbpBupl4TnVGNg zc2wDVEsCzF9cPS3nfLwEnA bF99qzG7vK3NeNDHmc0IqYW urEQ5mwP2iKeGuUCZmHOLjb QJaUWVsytYOFANrOPXaSH5i nZf5MXufIxaWDIvjDjOiJFM 6JCBnes90TGM8HxEgs5H7SP QuYyDxOIWlVU4mwJeeJHVsQ C2nIEMuV3ejcQ0nrox4CrZz PVPlOfP0XBDpjoE2Ddk4AEP cVSimh0rcw5NlYHOiXXv5bG ylBrYkOVEjz5vftmEmWtUbD NYyVCWkFUNwbUVdT320n4ri p5aepaBdfXT7MGUjEKE0OTk pgtQutsP0BBbooIFvMiM6FE ewqxBlQGwhzyXipcGeOgl6I MPeX254IVG8fIkip8gjOTI5 ZWErUCKjIjXqYk4gjREbG56 9BVYmUCOLMHOrlJi1VGKdte AcitYalZQXn100A027c5ldH NSptlFaaUqCuylip6fmN358 XHBhcGVydzEyMjQwXHBhcGV jzTX1NWUfEL0qgyiqSPspDW juZXJfoeU1IZUhwABvI8InI JFuIT1bnvqvRXT8OJaqPBUa GQG1OyIpSRUvs1Rivpi5OtL lan4rsf49SKM9r7RbvNomVO F7KCJ9TtToKw4grAEzMWTuL M5tCdLiyVQnWFUuzv57zUiq GQbbeaDkoL0bTyYxDQNfcUO vDPCoJJ4hrVIqPPDycZ5jjm xjXHBnYnJkcmhlYWRccGdic nVjId4fsMamZEL9KPrwO1rp tL1cFrC2FOgzS1bfxS6sVSe 7NXeoyOP1ODCqhA3gZE8ppf yfp3ozWBvgDPbaLCWmdaV9c uU4ZNXiiAIzW8NwfP3cZIHj ZQ6enlryo0jfUNE3OHwyRGC wYRD0BnQlNJDrl8Vvcko2Kl Utq1XyoECcNAlhX74ik776M GFlqsHgD0oubZYiojenfXIy zrugCCuuleE3SCHvADXwRUz uXGYxXGZzMjJcbGFuZzEwMz NcaGljaFxmMVxkYmNoXGYxX VzeO7gaMqUfMyYtAcVEhe9r n5MgAHHppqI9qNtfILGfj9A gl5UoDuMAOEGmP3DhMD3zrR UcRBSxjq46 [facility] Microscopic Description d6lwdAXhFKNkmMZn ZjIyMDA cTDQee3wjCPOdhEWbQkPuAf NcZnRuYmpcdWMxXGRlZmYwe 8igp972pDItt9szCQIwKmZ9 oBQwNTQjyTWnV813ZNJzOPu yx5doe5GpILOnpPSot4D9DH JGftidfGu3hIhnQ94ba3T2N ppnF5brMWZuKDJuT5YsUS1c EGYcIqi7NQC9TPY3GMPzNAY bV1KyPE3iKLIbfQTjHQa5k0 skxKmjMFGjQRZ7g9xtSYgoc pRzYK8vxz1zxUf8x4egovQo NHClZNKwwHEWLXNrS3NmpHn vRk0fwSl2gSfhSyvxTNF9To s7FI6zcq54cxz1mMscGQEtw jyjArP8JMjqFFLycnhcWDg9 ZIwoXKCwtYF5ABWpqFDqN1B mEGGnQI1hvwz6PDQ6IPdwKO HpXfT5ZIRtqQCpDAAnrXfdP Pnip594RSF9TnTgFS8hN3Ce o8Q9wF7qiMEtESMltZCoVxN oGZRqeb2saLLyQZiyn7WdSB M6baE7fJWjeSKwNNDgMC72R wfsj3SlMnueYOV0BQLbcbMg p9Dqs0mjHnYdohPnK3erQ6S yZHJoZWFkXHBnYnJkcmZvb3 Lmh7HcaVFygJu1d0hlIPEtJ GAdkVlnc9qkGEI6XOJkR6R4 kUQjk6ieGVzkUYHlqEK5edL 6ZPXytCZyQ3BhtK6nRIHuTN 5bxnp7m4uvSDH5DKshVGDpS wJ8shH2CIEecQQuRZTzoUct LNeht075VPK0RfHbSMNia1Q eC6LknVqoP51ctDovM24mZJ SwgKstkK4amQbftQ8gLeWnY nMyNFxxbFxwbGFpblxmMVxm qzQoRBmgabljEOWdSQhfY6v jYyVcMJBloKcpJFbkx3WkGE MzFKMoHbNwFMMvxUDpr7Gaz 1NgQoCteYKskT9xtJhsqbA1 QDUogXOmUi5dgRLgBgRtjOV yfQ== [facility] Pathologic Diagnosis o9zqcIRnYWGynWAuQSA wNVx znlVgCKDgaOHtD3WdzlbxMZ amMZ5fQB8yeTwigQLhzAUrL NTdAgOou5kmm381sUGxx6df UAVZltftkSp5k3uqWMWJgX7 pf1u6mB72LTYmfW9qmQJqAN qlsiVuEHnqhsGdzfJdHah4A XZ4qApbTbhgxCD1uCFxnJL7 WLxih9EobFvctBimYIZvLJL sMTK0S3oydGH1jSNzwEprbZ YvFH4vi4dwzQZ8maVmDVT5v UmauEV3xWovhjbih4xqlYR8 bQX7GIeqvLK4VTcxYuVfQ7u gKBVelS2lU98nG6jdZSCeiF jkBUkcEFZviID6BVS9EEVto 1xsZXZlbHRleHRcJzAxXCdi Xyc5n8ugTZCszD62rSMybpI 7fVxmMVxmczIwXGxpMzYwXG ZpMTgwfXtcbGlzdGxldmVsX HdzsgDdzfOjUvQuzJD4OTdu LwTjKiRwbAF5IYucTxZdtTQ 8PGuylYLulUU6SYicvHO8OJ q5ORh6JFuoRFczAjm6yZmkm SL3XQafaJ5tRBGkG34lZuYn AgIvSK91OEtjz1ZkYRYoeEn wZMXrhH0rNkJpVOiuntAzev ZjbjIzXGxldmVsamMwXGxld pShm1EmczLvwXW5GMyamjWf wFD6eVeoADDaM0I4H917NBt nopPqfaZtCuKaqvz9CMMwQT DzAxX4s6zhoKS5dXU5WLgwl QE8NFzyVbWxT6qfHYEvcU3x I89kW6yeHYYvvEfkPTogVXW lzMB0XPG5LQCcb5abXEGnpM AilIBxAbQyZEcsWfr1i1ugV YCuiO04lPXimlA0mZhbBRsr czIwfXtcbGlzdGxldmVsXGx pgzLaobKfNrGcfAL3DJzfJc GaImAswHY8REssNnDuoPF0W QiqvSQncIS4VFvlzSY1SBd6 ULp8AJunLQwfBlk1lMqwjYC 5QVkctH1qVPFeZ11nRgPtVd IcXQ83BSqjz1YqSQPvkCywE RVgtT3dIeMcGXfnbfDotaIq bjIzXGxldmVsamMwXGxldmV fi7AfbyHlfAZ8MHzcgiEiuC I3xJipKCFsZ5A7C714RDpxd mTkyjFnUiJwlxa4GJGoRAVj RyC5u9tugBI1eYO1PUvetOA 0ODumBrKjA1jbYVHpnZ4oC7 3eO3oaFJHinYvdVEyvRUTun PZ5OII7IHMrh2xgFVCamAAi wSHoBrOhSNhxDet1l5vjFLT fwS73hNCzibU8sOpjJOkifz IwfXtcbGlzdGxldmVsXGxld qJeteAfMsAfpXQ4KXemFpWb RySyxBV8GRefFpCvqSC2MEx vqJBfcII0HQfzzBM8YXx8NM o2VWltKXrySig9jEnhnAN2P NywtZ4bUYJuS48tXwWpGuRk ZN11SHato5SySRScmLczBPF xbI4eDaFgVSyzqzOifzJvkg IzXGxldmVsamMwXGxldmVsc 8PxreEpqSR7JFvccmRapFC1 hNokHNHkW3R7C304XSkjjyW pqlMpIaXiszv0YTVnSFGwYq B0xM48GZhocDhxhF00CZVjj TUmdVCpuHD4VKlzaFlshP49 EBQvcWWuWZgfs0IlXGQeWdW 9AnBfIUFvzHumzQ82TYQnjX QoS972hlBuWZjsKY75PGUle GVydzEyMjQwXHBhcGVyaDE1 WKIpZF6evlmnUGsrJZjcCRC ikxW8HQAksQOkT5HkZIFcBQ 4yavgdCXA7QCzxAFZoPAW1A nTjXTIxf6Vqyth7DzFcnVXr MCjjoFJxzujsCICxZvHtM4A yPRBjEDI0r61dM5wbQLRts4 BzeTpccGFyXGxpMzYwXGZpM HosUHomviV8HPruddLjuHp0 uIJajPgwlJ4qMwevtyJsQMI qYLYKm2UrtYUtad1gyT6fIK HymjKXfuGBDNfbI60hBDP3B DFgxWdfe1CwBByzLE55vKRz ZWRccGFyfQ== [facility] Professional Interpretation Performed at: j2htsKGvSZMqqLYdBrRyDOF uLYAsk3dmFGBozJFbZdLkUw NcZnRuYmpcdWMxXGRlZmYwe 8dnc837iPXib3viRNLxVmH2 yQAiHXQhuQQkE952DQBbKAm kk8jfx5SoGTKfmMDyp4V4GH BGlykcnWb9kJafC01ro6I3N fmnB7beEVUhIJXyW0NwTQ3e CYTtPbl6XNO1NJP3DALdJVX kU0WmLK1xEMQfwQCxSIq8l8 yxtJfhKOOqIUF2z8phXIlso rTbHL4gbs4yuWr9y4vqibPs SJIeFIDqvWLKWGYiM7UpwXd uZz7mjBr7cWgaFxrtHMO5Mi q2LG5kts40bnd2fTzeLRQoj dukOgV1VAgcPUZmtigwDMn1 KWhcXVMqmQL5XRQapRBeZ0L bHTTmDL2hqnd0MQX9ILwyLA UfLvN3GANufIDoUBEheRunD Kbcc868ADV6TcWzSY2oB2Dc x2G4pY8ruIVcNLMpjLJrAxC zPWWuur4yuDAwPTcjs1BnBZ B5poI6iNFpvDNoGIJaNQ66K nbmq6YkSawpXOU1CDJvwoEs i5Seu2ecJsCfvyBnG7uqE3L yZHJoZWFkXHBnYnJkcmZvb3 Lrz2FtpLIcdGi6p0qgYCWlZ VZslGgpd2ffHJD6NZDaT5A7 xRGuo9htTVxnKIPzzIH7hnJ 8ZTZwuZSlN1ZbzN3uPBOvVZ 9hgvh2x4siTIO4RYxdEWFdA iB1bvW8XFVcfQQkKTOyyTpg KMelr415YXB3ZmGfZZKab2J cL8HyqNcvQ75ybBmuV23qWP UzwGmggS8vgXbsmA1jHwAeA nMyNFxwYXJkXHBsYWluXGYx XGZzMjJcbGFuZzEwMzNcaGl jaFxmMVxkYmNoXGYxXGxvY2 pyOhSbLgWoVwWZQ9PnQ6YEA rEEXA1YWUpKXGafS7ZOAWMM VSYHXQ8NU4TXDVfYOt4EEVJ IXhfidBHbCGShWVNOTHN0RD PptBfzGKPfWWBatrFLw6s6p OG9msvcN5kkejT7WnCqFCqf YXJ9 [facility] CBC,PLATELETSon 08-11-2024 Erythrocyte distribution width (RBC) [Ratio] 13.7 % 10.8 - 14.9 % [facility] Hematocrit (Bld) [Volume fraction] 43.2 % 34.9 - 44.3 % [facility] Hemoglobin (Bld) [Mass/Vol] 14 g/dL 11.4 - 15.2 g/dL [facility] Interpretation and review of laboratory results Abnormal [facility] MCH (RBC) [Entitic mass] 29.9 pg 25.9 - 33.9 pg [facility] MCHC (RBC) [Mass/Vol] 32.4 g/dL 31.4 - 35.9 g/dL [facility] MCV (RBC) [Entitic vol] 92.1 fL 79.6 - 97.7 fL [facility] Platelet mean volume (Bld) [Entitic vol] 11.5 fL 8.5 - 12.2 fL [facility] Platelets (Bld) [#/Vol] 240 10*3/uL 150 - 393 K/uL [facility] RBC (Bld) [#/Vol] 4.69 10*6/uL [facility] WBC (Bld) [#/Vol] 11.76 10*3/uL High 3.99 - 11.19 K/uL [facility] Hematocrit (Bld) [Volume fraction] 43.2 % Normal 34.9-44.3 [facility] Comment on above: Performed By: #### T YPEC #### [facility] (DEFAULT) [address] [place] [address] Hemoglobin (Bld) [Mass/Vol] 14.0 g/dL Normal 11.4-15.2 [facility] Comment on above: Performed By: #### T YPEC #### [facility] (DEFAULT) [address] [address] MCV (RBC) [Entitic vol] 92.1 fL Normal 79.6-97.7 [facility] Comment on above: Performed By: #### T YPEC #### [facility] (DEFAULT) [address] [address] Mean Cell Hgb 29.9 pg Normal 25.9-33.9 [facility] Comment on above: Performed By: #### T YPEC #### [facility] (DEFAULT) [address] [address] Mean Cell Hgb Conc 32.4 g/dL Normal 31.4-35.9 [facility] Comment on above: Performed By: #### T YPEC #### [facility] (DEFAULT) [address] [address] Platelet mean volume (Bld) [Entitic vol] 11.5 fL Normal 8.5-12.2 [facility] Comment on above: Performed By: #### T YPEC #### [facility] (DEFAULT) [address] [address] Platelets (Bld) [#/Vol] 240 10*3/uL Normal 150-393 [facility] Comment on above: Performed By: #### T YPEC #### [facility] (DEFAULT) [address] [address] RBC (Bld) [#/Vol] 4.69 10*6/uL Normal 3.91-5.04 [facility] Comment on above: Performed By: #### T YPEC #### [facility] (DEFAULT) [address] [address] RBC Distribution 13.7 % Normal 10.8-14.9 [facility] Comment on above: Performed By: #### T YPEC #### [facility] (DEFAULT) [address] [place] [address] WBC (Bld) [#/Vol] 11.76 10*3/uL High 3.99-11.19 [facility] Comment on above: Performed By: #### T YPEC #### [facility] (DEFAULT) [address] [place] [address] CHEM 7 (LYTES,BUN,CREA,GLUC) on 08-11-2024 Anion gap [Moles/Vol] 14 mmol/L 7 - 17 mmol/L [facility] Chloride [Moles/Vol] 103 mmol/L 98 - 10 8 mmol/L [facility] CO2 [Moles/Vol] 26 mmol/L 21 - 31 mmol/L [facility] Creatinine [Mass/Vol] 1.32 mg/dL High 0.50 - 1.20 mg/dL [facility] eGFR, CKD-EPI, Female 41 Low - PINF [facility] Glucose [Mass/Vol] 127 mg/dL 70 - 179 mg/dL [facility] Interpretation and review of laboratory results Abnormal [facility] Osmolality Calc [Osmolality] 306 High [facility] Potassium [Moles/Vol] 4.6 mmol/L 3.5 - 5.0 mmol/L [facility] Sodium [Moles/Vol] 138 mmol/L 135 - 145 mmol/L [facility] Urea nitrogen [Mass/Vol] 53 mg/dL High 7 - 25 mg/dL [facility] Urea nitrogen/Creatinine [Mass ratio] 40 mg/mg [facility] Anion gap [Moles/Vol] 14 mmol/L Normal 7-17 [facility] Comment on above: Performed By: #### [facility] #### [facility] (DEFAULT) [address] [place] [address] Chloride [Moles/Vol] 103 mmol/L Normal 98-108 [facility] Comment on above: Performed By: #### H EMOGC #### [facility] (DEFAULT) [address] [place] [address] CO2 [Moles/Vol] 26 mmol/L Normal 21-31 [facility] Comment on above: Performed By: #### H EMO #### [facility] (DEFAULT) [address] [place] [address] Creatinine [Mass/Vol] 1.32 mg/dL High 0.50-1.20 [facility] Comment on above: Performed By: #### H EMO #### [facility] (DEFAULT) [address] [place] [address] GFR/1.73 sq M.predicted among non-blacks MDRD (S/P/Bld) [Vol rate/Area] 41 mL/min/{1.73_m2} Low >=60 [facility] Comment on above: Result Comment: Repo rted eGFR is based on the CKD-EPI 2020 equation using creatinine, age, and sex. Performed By: #### H EMO #### [facility] (DEFAULT) [address] [place] [address] Glucose [Mass/Vol] 127 mg/dL Normal Nonfastin -179 mg/dL; Fastin-99 [facility] Comment on above: Performed By: #### H EMO #### [facility] (DEFAULT) [address] [place] [address] Osmolality [Osmolality] 306 mosm/kg High 278-305 [facility] Comment on above: Performed By: #### H EMO #### [facility] (DEFAULT) [address] [place] [address] Potassium [Moles/Vol] 4.6 mmol/L Normal 3.5-5.0 [facility] Comment on above: Performed By: #### H EMO #### [facility] (DEFAULT) [address] [place] [address] Sodium [Moles/Vol] 138 mmol/L Normal 135-145 [facility] Comment on above: Performed By: #### H EMO #### [facility] (DEFAULT) [address] [place] [address] Urea nitrogen [Mass/Vol] 53 mg/dL High 7-25 [facility] Comment on above: Performed By: #### H EMOGC #### [facility] (DEFAULT) [address] [place] [address] Urea nitrogen/Creatinine [Mass ratio] 40 mg/mg Normal [facility] Comment on above: Performed By: #### [facility] #### [facility] (DEFAULT) [address] [place] [address] GLUCOSE POCon 08-11-2024 Glucose [Mass/Vol] 213 mg/dL High 70 - 179 mg/dL [facility] Interpretation and review of laboratory results Abnormal [facility] POC Sample Type CAP[facility] Glucose [Mass/Vol] 255 mg/dL High 70 - 179 mg/dL [facility] Interpretation and review of laboratory results Abnormal [facility] POC Sample Type CAPBL [facility] Glucose [Mass/Vol] 190 mg/dL High 70 - 179 mg/dL [facility] Interpretation and review of laboratory results Abnormal [facility] POC Sample Type [facility] Glucose [Mass/Vol] 205 mg/dL High 70 - 179 mg/dL [facility] Interpretation and review of laboratory results Abnormal [facility] POC Sample Type [facility] 08-11-2024 Interpretation and review of laboratory results Normal [facility] Magnesium [Mass/Vol] 1.9 mg/dL 1.6 - 2 .6 mg/dL [facility] Magnesium [Mass/Vol] 1.9 mg/dL Normal 1.6-2.6 [facility] Comment on above: Performed By: #### M , CHM7 #### [facility] (DEFAULT) [address] [place] [address] No Panel Informationon 08-11 [facility] BLOOD CULTUREon 08-10-2024 Bacteria identified Cx Nom (Unsp spec) NO GROWTH DAY 5 OF 5 Normal [facility] Comment on above: Order Comment: 2 [...] bottle. Performed By: #### T YPEC #### [facility] (DEFAULT) [address] [place] [address] Bacteria identified Cx Nom (Unsp spec) NO GROWTH DAY 5 OF 5 Normal [facility] Comment on above: Order Comment: 2 [...] bottle. Performed By: #### B LDCULT #### [facility] (DEFAULT) [address] [place] [address] CBC,PLATELETSon 08-10-2024 Erythrocyte distribution width (RBC) [Ratio] 13.3 % 10.8 - 14.9 % [facility] Hematocrit (Bld) [Volume fraction] 45.1 % High 34.9 - 44.3 % [facility] Hemoglobin (Bld) [Mass/Vol] 14.1 g/dL 11.4 - 15.2 g/dL [facility] Interpretation and review of laboratory results Abnormal [facility] MCH (RBC) [Entitic mass] 29.1 pg 25.9 - 33.9 pg [facility] MCHC (RBC) [Mass/Vol] 31.3 g/dL Low 31.4 - 35.9 g/dL [facility] MCV (RBC) [Entitic vol] 93 fL 79.6 - 97.7 fL [facility] Platelet mean volume (Bld) [Entitic vol] 11.4 fL 8.5 - 12.2 fL [facility] Platelets (Bld) [#/Vol] 216 10*3/uL 150 - 393 K/uL [facility] RBC (Bld) [#/Vol] 4.85 10*6/uL [facility] WBC (Bld) [#/Vol] 13.78 10*3/uL High 3.99 - 11.19 K/uL [facility] Hematocrit (Bld) [Volume fraction] 45.1 % High 34.9-44.3 [facility] Comment on above: Performed By: #### H [facility] #### [facility] (DEFAULT) [address] [place] [address] Hemoglobin (Bld) [Mass/Vol] 14.1 g/dL Normal 11.4-15.2 [facility] Comment on above: Performed By: #### H EMO #### [facility] (DEFAULT) [address] [place] [address] MCV (RBC) [Entitic vol] 93.0 fL Normal 79.6-97.7 [facility] Comment on above: Performed By: #### H EMO #### [facility] (DEFAULT) [address] [place] [address] Mean Cell Hgb 29.1 pg Normal 25.9-33.9 [facility] Comment on above: Performed By: #### H EMO #### [facility] (DEFAULT) [address] [place] [address] Mean Cell Hgb Conc 31.3 g/dL Low 31.4-35.9 [facility] Comment on above: Performed By: #### H EMO #### [facility] (DEFAULT) [address] [place] [address] Platelet mean volume (Bld) [Entitic vol] 11.4 fL Normal 8.5-12.2 [facility] Comment on above: Performed By: #### H EMO #### [facility] (DEFAULT) [address] [place] [address] Platelets (Bld) [#/Vol] 216 10*3/uL Normal 150-393 [facility] Comment on above: Performed By: #### H EMOGC #### [facility] (DEFAULT) [address] [place] [address] RBC (Bld) [#/Vol] 4.85 10*6/uL Normal 3.91-5.04 [facility] Comment on above: Performed By: #### H EMO #### [facility] (DEFAULT) [address] [place] [address] RBC Distribution 13.3 % Normal 10.8-14.9 [facility] Comment on above: Performed By: #### H EMOGC #### [facility] (DEFAULT) [address] [place] [address] WBC (Bld) [#/Vol] 13.78 10*3/uL High 3.99-11.19 [facility] Comment on above: Performed By: #### H EMOGC #### [facility] (DEFAULT) [address] [place] [address] CHEM 7 (LYTES,BUN,CREA,GLUC) on 08-10-2024 Anion gap [Moles/Vol] 16 mmol/L 7 - 17 mmol/L [facility] Chloride [Moles/Vol] 103 mmol/L 98 - 10 8 mmol/L [facility] CO2 [Moles/Vol] 24 mmol/L 21 - 31 mmol/L [facility] Creatinine [Mass/Vol] 1.36 mg/dL High 0.50 - 1.20 mg/dL [facility] eGFR, CKD-EPI, Female 40 Low - PINF [facility] Glucose [Mass/Vol] 186 mg/dL High 70 - 179 mg/dL [facility] Interpretation and review of laboratory results Abnormal [facility] Osmolality Calc [Osmolality] 308 High [facility] Potassium [Moles/Vol] 4.9 mmol/L 3.5 - 5.0 mmol/L [facility] Sodium [Moles/Vol] 138 mmol/L 135 - 145 mmol/L [facility] Urea nitrogen [Mass/Vol] 47 mg/dL High 7 - 25 mg/dL [facility] Urea nitrogen/Creatinine [Mass ratio] 35 mg/mg [facility] Anion gap [Moles/Vol] 16 mmol/L Normal 7-17 [facility] Comment on above: Performed By: #### CAMERON PALACIOS ####[facility] (DEFAULT)[address] [place] [id number] Chloride [Moles/Vol] 103 mmol/L Normal 98-108 [facility] Comment on above: Performed By: #### CAMERON PALACIOS ####[facility] (DEFAULT)[address] [place] [address] CO2 [Moles/Vol] 24 mmol/L Normal 21-31 [facility] Comment on above: Performed By: #### HEYDI PALACIOS7 ####[facility] (DEFAULT)[address] [place] [id number] Creatinine [Mass/Vol] 1.36 mg/dL High 0.50-1.20 [facility] Comment on above: Performed By: #### HEYDI PALACIOS7 ####[facility] (DEFAULT)[address] [place] [address] GFR/1.73 sq M.predicted among non-blacks MDRD (S/P/Bld) [Vol rate/Area] 40 mL/min/{1.73_m2} Low >=60 [facility] Comment on above: Result Comment: Repo rted eGFR is based on the CKD-EPI 2020 equation using creatinine, age, and sex. Performed By: #### HEYDI PALACIOS7 ####[facility] (DEFAULT)[address] [place] [address] Glucose [Mass/Vol] 186 mg/dL High Nonfastin -179 mg/dL; Fastin-99 [facility] Comment on above: Performed By: #### HEYDI PALACIOS7 ####[facility] (DEFAULT)[address] [place] [address] Osmolality [Osmolality] 308 mosm/kg High 278-305 [facility] Comment on above: Performed By: #### HEYDI PALACIOS7 ####[facility] (DEFAULT)[address] [place] [address] Potassium [Moles/Vol] 4.9 mmol/L Normal 3.5-5.0 [facility] Comment on above: Performed By: #### CAMERON PALACIOS ####[facility] (DEFAULT)[address] [place] [address] Sodium [Moles/Vol] 138 mmol/L Normal 135-145 [facility] Comment on above: Performed By: #### HEYDI PALACIOS7 ####[facility] (DEFAULT)[address] [place] [address] Urea nitrogen [Mass/Vol] 47 mg/dL High 7-25 [facility] Comment on above: Performed By: #### CAMERON PALACIOS ####[facility] (DEFAULT)[address] [place] [address] Urea nitrogen/Creatinine [Mass ratio] 35 mg/mg Normal [facility] Comment on above: Performed By: #### CAMERON PALACIOS ####[facility] (DEFAULT)[address] [place] [address] GLUCOSE POCon 03-29-2025 Glucose [Mass/Vol] 144 mg/dL 70 - 179 [facility] Glucose [Mass/Vol] 177 mg/dL 70 - 179 mg/dL [facility] Glucose [Mass/Vol] 180 mg/dL High 70 - 179 mg/dL [facility] Interpretation and review of laboratory results Abnormal [facility] POC Sample Type [facility] Glucose [Mass/Vol] 193 mg/dL High 70 - 179 mg/dL [facility] Interpretation and review of laboratory results Abnormal [facility] POC Sample Type [facility] Glucose [Mass/Vol] 200 mg/dL High 70 - 179 mg/dL [facility] Interpretation and review of laboratory results Abnormal [facility] POC Sample Type CAPBL [facility] Glucose [Mass/Vol] 198 mg/dL High 70 - 179 mg/dL [facility] Interpretation and review of laboratory results Abnormal [facility] POC [facility] MAGNESIUMon 08-10-2024 Interpretation and review of laboratory results Normal [facility] Magnesium [Mass/Vol] 1.8 mg/dL 1.6 - 2 .6 mg/dL [facility] Magnesium [Mass/Vol] 1.8 mg/dL Normal 1.6-2.6 [facility] Comment on above: Performed By: #### M CAMERON NGUYEN ####[facility] (DEFAULT)[address] [place] [address] No Panel Informationon 08-10 [facility] URINE CULTUREOrdered By: Franklin Carcamo on 08-10-2024 Bacteria identified Cx Nom (Unsp spec) Growth [facility] Bacteria identified Cx Nom (Unsp spec) KLEBSIELLA PNEUMONIAE Abnormal [facility] Interpretation and review of laboratory results Abnormal [facility] CBC,PLATELETSon 08-09-2024 Erythrocyte distribution width (RBC) [Ratio] 13.5 % 10.8 - 14.9 % [facility] Hematocrit (Bld) [Volume fraction] 44.4 % High 34.9 - 44.3 % [facility] Hemoglobin (Bld) [Mass/Vol] 14.1 g/dL 11.4 - 15.2 g/dL [facility] Interpretation and review of laboratory results Abnormal [facility] MCH (RBC) [Entitic mass] 29.4 pg 25.9 - 33.9 pg [facility] MCHC (RBC) [Mass/Vol] 31.8 g/dL 31.4 - 35.9 g/dL [facility] MCV (RBC) [Entitic vol] 92.7 fL 79.6 - 97.7 fL [facility] Platelet mean volume (Bld) [Entitic vol] 11.5 fL 8.5 - 12.2 fL [facility] Platelets (Bld) [#/Vol] 226 10*3/uL 150 - 393 K/uL [facility] RBC (Bld) [#/Vol] 4.79 10*6/uL [facility] WBC (Bld) [#/Vol] 12.37 10*3/uL High 3.99 - 11.19 K/uL [facility] Hematocrit (Bld) [Volume fraction] 44.4 % High 34.9-44.3 [facility] Comment on above: Performed By: #### [facility] #### [facility] (DEFAULT) [address] [place] [address] Hemoglobin (Bld) [Mass/Vol] 14.1 g/dL Normal 11.4-15.2 [facility] Comment on above: Performed By: #### H EMOGC #### [facility] (DEFAULT) [address] [address] MCV (RBC) [Entitic vol] 92.7 fL Normal 79.6-97.7 [facility] Comment on above: Performed By: #### H EMOGC #### [facility] (DEFAULT) [address] [address] Mean Cell Hgb 29.4 pg Normal 25.9-33.9 [facility] Comment on above: Performed By: #### H EMOGC #### [facility] (DEFAULT) [address] [address] Mean Cell Hgb Conc 31.8 g/dL Normal 31.4-35.9 [facility] Comment on above: Performed By: #### H EMOGC #### [facility] (DEFAULT) [address] [address] Platelet mean volume (Bld) [Entitic vol] 11.5 fL Normal 8.5-12.2 [facility] Comment on above: Performed By: #### H EMOGC #### [facility] (DEFAULT) [address] [address] Platelets (Bld) [#/Vol] 226 10*3/uL Normal 150-393 [facility] Comment on above: Performed By: #### H EMOGC #### [facility] (DEFAULT) [address] [address] RBC (Bld) [#/Vol] 4.79 10*6/uL Normal 3.91-5.04 [facility] Comment on above: Performed By: #### H EMOGC #### [facility] (DEFAULT) [address] [address] RBC Distribution 13.5 % Normal 10.8-14.9 [facility] Comment on above: Performed By: #### H EMOGC #### [facility] (DEFAULT) [address] [place] [address] WBC (Bld) [#/Vol] 12.37 10*3/uL High 3.99-11.19 [facility] Comment on above: Performed By: #### [facility] #### [facility] (DEFAULT) [address] [place] [address] CHEM 7 (LYTES,BUN,CREA,GLUC) on 08-09-2024 Anion gap [Moles/Vol] 14 mmol/L 7 - 17 mmol/L [facility] Chloride [Moles/Vol] 103 mmol/L 98 - 10 8 mmol/L [facility] CO2 [Moles/Vol] 26 mmol/L 21 - 31 mmol/L [facility] Creatinine [Mass/Vol] 1.35 mg/dL High 0.50 - 1.20 mg/dL [facility] eGFR, CKD-EPI, Female 40 Low - PINF [facility] Glucose [Mass/Vol] 182 mg/dL High 70 - 179 mg/dL [facility] Interpretation and review of laboratory results Abnormal [facility] Osmolality Calc [Osmolality] 305 [facility] Potassium [Moles/Vol] 4.9 mmol/L 3.5 - 5.0 mmol/L [facility] Sodium [Moles/Vol] 138 mmol/L 135 - 145 mmol/L [facility] Urea nitrogen [Mass/Vol] 38 mg/dL High 7 - 25 mg/dL [facility] Urea nitrogen/Creatinine [Mass ratio] 28 mg/mg [facility] Anion gap [Moles/Vol] 14 mmol/L Normal 7-17 [facility] Comment on above: Performed By: #### [facility] #### [facility] (DEFAULT) [address] [place] [address] Chloride [Moles/Vol] 103 mmol/L Normal 98-108 [facility] Comment on above: Performed By: #### [facility] #### [facility] (DEFAULT) [address] [place] [address] CO2 [Moles/Vol] 26 mmol/L Normal 21-31 [facility] Comment on above: Performed By: #### H EMO #### [facility] (DEFAULT) [address] [place] [address] Creatinine [Mass/Vol] 1.35 mg/dL High 0.50-1.20 [facility] Comment on above: Performed By: #### H EMO #### [facility] (DEFAULT) [address] [place] [address] GFR/1.73 sq M.predicted among non-blacks MDRD (S/P/Bld) [Vol rate/Area] 40 mL/min/{1.73_m2} Low >=60 [facility] Comment on above: Result Comment: Repo rted eGFR is based on the CKD-EPI 2020 equation using creatinine, age, and sex. Performed By: #### H EMO #### [facility] (DEFAULT) [address] [place] [address] Glucose [Mass/Vol] 182 mg/dL High Nonfastin -179 mg/dL; Fastin-99 [facility] Comment on above: Performed By: #### H EMO #### [facility] (DEFAULT) [address] [place] [address] Osmolality [Osmolality] 305 mosm/kg Normal 278-305 [facility] Comment on above: Performed By: #### H EMO #### [facility] (DEFAULT) [address] [place] [address] Potassium [Moles/Vol] 4.9 mmol/L Normal 3.5-5.0 [facility] Comment on above: Performed By: #### H EMO #### [facility] (DEFAULT) [address] [place] [address] Sodium [Moles/Vol] 138 mmol/L Normal 135-145 [facility] Comment on above: Performed By: #### [facility] #### [facility] (DEFAULT) [address] [place] [address] Urea nitrogen [Mass/Vol] 38 mg/dL High 7-25 [facility] Comment on above: Performed By: #### H EMO #### [facility] (DEFAULT) [address] [place] [address] Urea nitrogen/Creatinine [Mass ratio] 28 mg/mg Normal [facility] Comment on above: Performed By: #### [facility] #### [facility] (DEFAULT) [address] [place] [address] EXTRA MICROon 08-09-2024 [facility] GLUCOSE POCon 08-09-2024 Glucose [Mass/Vol] 186 mg/dL High 70 - 179 mg/dL [facility] Interpretation and review of laboratory results Abnormal [facility] POC Sample Type [facility] Glucose [Mass/Vol] 255 mg/dL High 70 - 179 mg/dL [facility] Interpretation and review of laboratory results Abnormal [facility] POC Sample Type [facility] Glucose [Mass/Vol] 235 mg/dL High 70 - 179 mg/dL [facility] Interpretation and review of laboratory results Abnormal [facility] POC Sample Type [facility] Glucose [Mass/Vol] 167 mg/dL 70 - 179 mg/dL [facility] POC Sample Type [facility] INTERVENTIONAL UPPER ENDOSCO PYon 08-09-2024 Body surface area Derived from formula 1.9 m2 [facility] LAB, [facility] Radiology Study observation (narrative) [facility] MAGNESIUMon 08-09-2024 Interpretation and review of laboratory results Normal [facility] Magnesium [Mass/Vol] 1.8 mg/dL 1.6 - 2 .6 mg/dL [facility] Magnesium [Mass/Vol] 1.8 mg/dL Normal 1.6-2.6 [facility] Comment on above: Performed By: #### H EMO #### [facility] (DEFAULT) [address] [place] [address] No Panel Informationon 08-09 [facility] PT,INR,PTTon 08-09-2024 aPTT Coag (PPP) [Time] 38.4 s High [facility] INR Coag (Bld) [Relative time] 1 {INR} 0.9 - 1.1 [facility] Interpretation and review of laboratory results Abnormal [facility] PT Coag (PPP) [Time] 13 s [facility] aPTT Coag (Bld) [Time] 38.4 s High 24.0-34.3 [facility] Comment on above: Performed By: #### B LDCULT #### [facility] (DEFAULT) [address] [place] [address] INR Coag (PPP) [Relative time] 1.0 {INR} Normal 0.9-1.1 [facility] Comment on above: Performed By: #### B LDCULT #### [facility] (DEFAULT) [address] [place] [address] PT Coag (PPP) [Time] 13.0 s Normal 11.9-14.2 [facility] Comment on above: Performed By: #### B LDCULT #### [facility] (DEFAULT) [address] [place] [address] SURG PATH REQUESTon 08-10-19 Case Report Normal [facility] Comment on above: Result Comment: Surg ical Pathology Report Case: [id number] Authorizing Provider: Judson Keith DO Collected: 08/09/2024 10:07 AM Ordering Location: [facility] Received: 08/09/2024 12:13 PM Pathologist: Renae Glez MD Specimen: STOMACH, gastric, r/o HP Performed By: #### S URGP #### [facility] (DEFAULT) [address] [address] Clinical History R/O HP. Associated Diagnosis: None. Medical History: No medical history provided. [facility] Comment on above: Performed By: #### S URGP #### [facility] (DEFAULT) [address] [address] Gross Description [facility] Comment on above: Result Comment: The specimen is received in one properly labeled container with the patient's name and accession number. A. The specimen is designated "gastric, r/o hp" and consists of five fragments of jackson-pink soft tissue, from 0.2 up to 0.6 cm in greatest dimension. TE 1 Lab Use Only: JobID [id number] Grosser for this case was: Sunshine Hidalgo Performed By: #### S URGP #### [facility] (DEFAULT) [address] [place] [address] Microscopic Description A microscopic examination was performed. [facility] Comment on above: Performed By: #### S URGP #### [facility] (DEFAULT) [address] [address] Pathologic Diagnosis [facility] Comment on above: Result Comment: Anjelica echols, biopsy: Focal erosion No Helicobacter pylori identified at 1005 EDT Performed By: #### S URGP #### [facility] (DEFAULT) [address] [address] Professional Interpretation Performed at: [facility] Comment on above: Result Comment: [facility] For Immediate Release to Patient's [facility]? Yes [address] [address] Performed By: #### S URGP #### [facility] (DEFAULT) [address] [address] CBC,PLATELETSon 08-08-2024 Erythrocyte distribution width (RBC) [Ratio] 13.6 % 10.8 - 14.9 % [facility] Hematocrit (Bld) [Volume fraction] 45.7 % High 34.9 - 44.3 % [facility] Hemoglobin (Bld) [Mass/Vol] 14.4 g/dL 11.4 - 15.2 g/dL [facility] Interpretation and review of laboratory results Abnormal [facility] MCH (RBC) [Entitic mass] 29.4 pg 25.9 - 33.9 pg [facility] MCHC (RBC) [Mass/Vol] 31.5 g/dL 31.4 - 35.9 g/dL [facility] MCV (RBC) [Entitic vol] 93.3 fL 79.6 - 97.7 fL [facility] Platelet mean volume (Bld) [Entitic vol] 10.9 fL 8.5 - 12.2 fL [facility] Platelets (Bld) [#/Vol] 212 10*3/uL 150 - 393 K/uL [facility] RBC (Bld) [#/Vol] 4.9 10*6/uL [facility] WBC (Bld) [#/Vol] 10.39 10*3/uL 3.99 - 11.19 K/uL [facility] Hematocrit (Bld) [Volume fraction] 45.7 % High 34.9-44.3 [facility] Comment on above: Performed By: #### [facility] #### [facility] (DEFAULT) [address] [place] [address] Hemoglobin (Bld) [Mass/Vol] 14.4 g/dL Normal 11.4-15.2 [facility] Comment on above: Performed By: #### H EMO #### [facility] (DEFAULT) [address] [place] [address] MCV (RBC) [Entitic vol] 93.3 fL Normal 79.6-97.7 [facility] Comment on above: Performed By: #### H EMOGC #### [facility] (DEFAULT) [address] [place] [address] Mean Cell Hgb 29.4 pg Normal 25.9-33.9 [facility] Comment on above: Performed By: #### H EMOGC #### [facility] (DEFAULT) [address] [address] Mean Cell Hgb Conc 31.5 g/dL Normal 31.4-35.9 [facility] Comment on above: Performed By: #### H EMOGC #### [facility] (DEFAULT) [address] [address] Platelet mean volume (Bld) [Entitic vol] 10.9 fL Normal 8.5-12.2 [facility] Comment on above: Performed By: #### H EMOGC #### [facility] (DEFAULT) [address] [address] Platelets (Bld) [#/Vol] 212 10*3/uL Normal 150-393 [facility] Comment on above: Performed By: #### H EMOGC #### [facility] (DEFAULT) [address] [place] [address] RBC (Bld) [#/Vol] 4.90 10*6/uL Normal 3.91-5.04 [facility] Comment on above: Performed By: #### H EMOGC #### [facility] (DEFAULT) [address] [address] RBC Distribution 13.6 % Normal 10.8-14.9 [facility] Comment on above: Performed By: #### H EMOGC #### [facility] (DEFAULT) [address] [address] WBC (Bld) [#/Vol] 10.39 10*3/uL Normal 3.99-11.19 [facility] Comment on above: Performed By: #### H EMOGC #### [facility] (DEFAULT) [address] [place] [address] CHEM 7 (LYTES,BUN,CREA,GLUC) on 08-08-2024 Anion gap [Moles/Vol] 15 mmol/L 7 - 17 mmol/L [facility] Chloride [Moles/Vol] 104 mmol/L 98 - 10 8 mmol/L [facility] CO2 [Moles/Vol] 25 mmol/L 21 - 31 mmol/L [facility] Creatinine [Mass/Vol] 1.15 mg/dL 0.50 - 1.20 mg/dL [facility] eGFR, CKD-EPI, Female 48 Low - PINF [facility] Glucose [Mass/Vol] 111 mg/dL 70 - 179 mg/dL [facility] Interpretation and review of laboratory results Abnormal [facility] Osmolality Calc [Osmolality] 302 [facility] Potassium [Moles/Vol] 4.3 mmol/L 3.5 - 5.0 mmol/L [facility] Sodium [Moles/Vol] 140 mmol/L 135 - 145 mmol/L [facility] Urea nitrogen [Mass/Vol] 35 mg/dL High 7 - 25 mg/dL [facility] Urea nitrogen/Creatinine [Mass ratio] 30 mg/mg [facility] Anion gap [Moles/Vol] 15 mmol/L Normal 7-17 [facility] Comment on above: Performed By: #### CAMERON PALACIOS ####[facility] (DEFAULT)[address] [place] [address] Chloride [Moles/Vol] 104 mmol/L Normal 98-108 [facility] Comment on above: Performed By: #### CAMERON PALACIOS ####[facility] (DEFAULT)[address] [place] [address] CO2 [Moles/Vol] 25 mmol/L Normal 21-31 [facility] Comment on above: Performed By: #### CAMERON PALACIOS ####[facility] (DEFAULT)[address] [place] [address] Creatinine [Mass/Vol] 1.15 mg/dL Normal 0.50-1.20 [facility] Comment on above: Performed By: #### HEYDI PALACIOS7 ####[facility] (DEFAULT)[address] [place] [address] GFR/1.73 sq M.predicted among non-blacks MDRD (S/P/Bld) [Vol rate/Area] 48 mL/min/{1.73_m2} Low >=60 [facility] Comment on above: Result Comment: Repo rted eGFR is based on the CKD-EPI 2020 equation using creatinine, age, and sex. Performed By: #### HEYDI PALACIOS7 ####[facility] (DEFAULT)[address] [place] [address] Glucose [Mass/Vol] 111 mg/dL Normal Nonfastin -179 mg/dL; Fastin-99 [facility] Comment on above: Performed By: #### CAMERON PALACIOS ####[facility] (DEFAULT)[address] [place], [place] [address], [place] [address] Osmolality [Osmolality] 302 mosm/kg Normal 278-305 [facility] Comment on above: Performed By: #### HEYDI PALACIOS7 ####[facility] (DEFAULT)[address] [place] [address] Potassium [Moles/Vol] 4.3 mmol/L Normal 3.5-5.0 [facility] Comment on above: Performed By: #### Jaiden NGUYEN CHM7 ####[facility] (DEFAULT)[address] [place] [address] Sodium [Moles/Vol] 140 mmol/L Normal 135-145 [facility] Comment on above: Performed By: #### Jaiden NGUYEN CHM7 ####[facility] (DEFAULT)[address] [place] [address], [place] [address] Urea nitrogen [Mass/Vol] 35 mg/dL High 7-25 [facility] Comment on above: Performed By: #### M HILARIA NGUYENM7 ####[facility] (DEFAULT)[address] [place] [address] Urea nitrogen/Creatinine [Mass ratio] 30 mg/mg Normal [facility] Comment on above: Performed By: #### M WENDY CHM7 ####[facility] (DEFAULT)[address] [place] [address] CT HEAD WITHOUT CONTRASTon 0 08-08-2024 CT [...] have reviewed and approved this report. Normal [facility] CT Head WO contraston 2024 [facility] GLU[facility]SE [facility]Con 08-08-2024 Glucose [Mass/Vol] 150 mg/dL 70 - 179 mg/dL [facility] POC Sample [facility] Glucose [Mass/Vol] 148 mg/dL 70 - 179 mg/dL [facility] POC Sample Type [facility] Glucose [Mass/Vol] 192 mg/dL High 70 - 179 mg/dL [facility] Interpretation and review of laboratory results Abnormal [facility] POC Sample Type [facility] Glucose [Mass/Vol] 198 mg/dL High 70 - 179 mg/dL [facility] Interpretation and review of laboratory results Abnormal [facility] POC Sample Type [facility] Glucose [Mass/Vol] 186 mg/dL High 70 - 179 mg/dL [facility] Interpretation and review of laboratory results Abnormal [facility] POC Sample Type [facility] MAGNESIUMon 08-08-2024 Interpretation and review of laboratory results Normal [facility] Magnesium [Mass/Vol] 1.7 mg/dL 1.6 - 2 .6 mg/dL [facility] Magnesium [Mass/Vol] 1.7 mg/dL Normal 1.6-2.6 [facility] Comment on above: Performed By: #### M CAMERON NGUYEN ####[facility] (DEFAULT)[address] [place] [address] No Panel Informationon 08-08 [facility] URINALYSIS REFLEX TO CULTURE PERFORMABLEOrdered By: Danya Yates on 08-08-2024 Appearance (U) Cloudy Abnormal Clear [facility] Bacteria LM Ql (Urine sed) PRESENT Abnormal ABSENT [facility] Color (U) Yellow Yellow [facility] Epithelial cells.squamous LM Ql (Urine sed) 0-2/hpf 0-2/hpf, 3-5/hpf = 1+ [facility] Glucose Test strip (U) [Mass/Vol] Negative Negative [facility] Interpretation and review of laboratory results Abnormal [facility] Ketones (U) [Mass/Vol] Trace Abnormal Negative OS [facility] Leukocyte esterase Test strip Ql (U) Large Abnormal Negative [facility] Nitrite Ql (U) Positive Abnormal Negative [facility] pH (U) 7.0 [pH] 5.0 - 7.0 [facility] Protein (U) [Mass/Vol] Trace Abnormal Negative OS [facility] RBC (U) [#/Vol] Trace Abnormal Negative U [facility] RBC LM.HPF (Urine sed) [#/Area] 6-10 Abnormal [facility] Specific gravity (U) [Rel density] 1.023 1.001 - 1.035 [facility] Urobilinogen (U) [Mass/Vol] 1.0 E.U./dL 0.2 E.U/dL, 1.0 E.U/dL [facility] WBC LM.HPF (Urine sed) [#/Area] /[HPF] Abnormal [facility] URINALYSIS REFLEX TO CULTURE PERFORMABLEon 08-08-2024 Appearance (U) Cloudy Abnormal Clear [facility] Comment on above: Order Comment: For i ndwelling catheters, specimen collection is acceptable on catheter day 1 and 2 only. ? Performed By: #### T YPEC #### [facility] (DEFAULT) [address] [place] [address] Bacteria PRESENT Abnormal ABSENT [facility] Comment on above: Order Comment: For i ndwelling catheters, specimen collection is acceptable on catheter day 1 and 2 only. ? Performed By: #### T YPEC #### [facility] (DEFAULT) [address] [place] [address] Blood Urine Trace Abnormal Negative [facility] Comment on above: Order Comment: For i ndwelling catheters, specimen collection is acceptable on catheter day 1 and 2 only. ? Performed By: #### T YPEC #### [facility] (DEFAULT) [address] [place] [address] Color (U) Yellow Normal Yellow [facility] Comment on above: Order Comment: For i ndwelling catheters, specimen collection is acceptable on catheter day 1 and 2 only. ? Performed By: #### T YPEC #### [facility] (DEFAULT) [address] [place] [address] Glucose Ql (U) Negative Normal Negative [facility] Comment on above: Order Comment: For i ndwelling catheters, specimen collection is acceptable on catheter day 1 and 2 only. ? Performed By: #### T YPEC #### [facility] (DEFAULT) [address] [place] [address] Ketones Ql (U) Trace Abnormal Negative [facility] Comment on above: Order Comment: For i ndwelling catheters, specimen collection is acceptable on catheter day 1 and 2 only. ? Performed By: #### T YPEC #### [facility] (DEFAULT) [address] [place] [address] Leukocyte esterase Test strip Ql (U) Large Abnormal Negative [facility] Comment on above: Order Comment: For i ndwelling catheters, specimen collection is acceptable on catheter day 1 and 2 only. ? Performed By: #### T YPEC #### [facility] (DEFAULT) [address] [place] [address] Nitrites Urine Positive Abnormal Negative [facility] Comment on above: Order Comment: For i ndwelling catheters, specimen collection is acceptable on catheter day 1 and 2 only. ? Performed By: #### T YPEC #### [facility] (DEFAULT) [address] [place] [address] pH (U) 7.0 [pH] Normal 5.0-7.0 [facility] Comment on above: Order Comment: For i ndwelling catheters, specimen collection is acceptable on catheter day 1 and 2 only. ? Performed By: #### T YPEC #### [facility] (DEFAULT) [address] [place] [address] Protein Urine Trace Abnormal Negative [facility] Comment on above: Order Comment: For i ndwelling catheters, specimen collection is acceptable on catheter day 1 and 2 only. ? Performed By: #### T YPEC #### [facility] (DEFAULT) [address] [place] [address] RBC Urine 6-10 Abnormal 0-2 [facility] Comment on above: Order Comment: For i ndwelling catheters, specimen collection is acceptable on catheter day 1 and 2 only. ? Performed By: #### T YPEC #### [facility] (DEFAULT) [address] [address] Specific [place] Urine 1.023 Normal 1.001-1.035 [facility] Comment on above: Order Comment: For i ndwelling catheters, specimen collection is acceptable on catheter day 1 and 2 only. ? Performed By: #### T YPEC #### [facility] (DEFAULT) [address] [address] Squamous/Epithelial Cells, Urine 0-2/hpf Normal 0-2/hpf, 3-5/hpf = 1+ [facility] Comment on above: Order Comment: For i ndwelling catheters, specimen collection is acceptable on catheter day 1 and 2 only. ? Performed By: #### T YPEC #### [facility] (DEFAULT) [address] [place] [address] Urobilinogen Urine 1.0 E.U./dL Normal 0.2 E.U/d L, 1.0 E.U/dL [facility] Comment on above: Order Comment: For i ndwelling catheters, specimen collection is acceptable on catheter day 1 and 2 only. ? Performed By: #### T YPEC #### [facility] (DEFAULT) [address] [address] WBC LM.HPF (Urine sed) [#/Area] /[HPF] Abnormal 0 - 5 [facility] Comment on above: Order Comment: For i ndwelling catheters, specimen collection is acceptable on catheter day 1 and 2 only. ? Performed By: #### T YPEC #### [facility] [facility] (DEFAULT[facility] [address] [place] [address] 10028 URINE CULTUREon 08-08-2024 Amikacin [Susceptibility] <= Invalid Interpretation Code [facility] Comment on above: Order Comment: For [...] ? Performed By: #### T YPEC #### [facility] (DEFAULT) [address] [place] [address] 32352 Ampicillin [Susceptibility] >=32 Resistant [facility] Comment on above: Order Comment: For [...] Performed By: #### T YPEC #### [facility] (DEFAULT) [address] [place] [address]82 Ampicillin+Sulbactam [Susceptibility] >=32 Resistant [facility] Comment on above: Order Comment: For [...] Performed By: #### T YPEC #### [facility] (DEFAULT) [address] [place] [address] 16686 ceFAZolin [Susceptibility] >= Resistant [facility] Comment on above: Order Comment: For [...] cefdinir. Performed By: #### T YPEC #### [facility] (DEFAULT) [address] [address] Cefepime [Susceptibility] <= Invalid Interpretation Code [facility] Comment on above: Order Comment: For [...] ? Performed By: #### T YPEC #### [facility] (DEFAULT) [address] [address] cefTRIAXone [Susceptibility] <= Invalid Interpretation Code [facility] Comment on above: Order Comment: For [...] Performed By: #### T YPEC #### [facility] (DEFAULT) [address] [address] Ciprofloxacin [Susceptibility] >= Resistant [facility] Comment on above: Order Comment: For [...] ? Performed By: #### T YPEC #### [facility] (DEFAULT) [address] [address] Ertapenem [Susceptibility] <= Invalid Interpretation Code [facility] Comment on above: Order Comment: For [...] ? Performed By: #### T YPEC #### [facility] (DEFAULT) [address] [address] Gentamicin [Susceptibility] <= Invalid Interpretation Code [facility] Comment on above: Order Comment: For [...] ? Performed By: #### T YPEC #### [facility] (DEFAULT) [address] [address] levoFLOXacin [Susceptibility] >= Resistant [facility] Comment on above: Order Comment: For [...] ? Performed By: #### T YPEC #### [facility] (DEFAULT) [address] [address] Nitrofurantoin [Susceptibility] 128 ug/mL Resistant [facility] Comment on above: Order Comment: For [...] ? Performed By: #### T YPEC #### [facility] (DEFAULT) [address] [place] [address] Piperacillin+Tazobactam [Susceptibility] 8 ug/mL Invalid Interpretation Code [facility] Comment on above: Order Comment: For [...] ? Performed By: #### T YPEC #### [facility] (DEFAULT) [address] [address] Trimethoprim+Sulfametho xazole [Susceptibility] <= Invalid Interpretation Code [facility] Comment on above: Order Comment: For [...] ? Performed By: #### T YPEC #### [facility] (DEFAULT) [address] [place] [address] 27769 CBC,PLATELETSon 08-07-2024 Erythrocyte distribution width (RBC) [Ratio] 13.9 % 10.8 - 14.9 % [facility] Hematocrit (Bld) [Volume fraction] 43.1 % 34.9 - 44.3 % [facility] Hemoglobin (Bld) [Mass/Vol] 13.7 g/dL 11.4 - 15.2 g/dL [facility] Interpretation and review of laboratory results Abnormal [facility] MCH (RBC) [Entitic mass] 29.6 pg 25.9 - 33.9 pg [facility] MCHC (RBC) [Mass/Vol] 31.8 g/dL 31.4 - 35.9 g/dL [facility] MCV (RBC) [Entitic vol] 93.1 fL 79.6 - 97.7 fL [facility] Platelet mean volume (Bld) [Entitic vol] 11.1 fL 8.5 - 12.2 fL [facility] Platelets (Bld) [#/Vol] 214 10*3/uL 150 - 393 K/uL [facility] RBC (Bld) [#/Vol] 4.63 10*6/uL [facility] WBC (Bld) [#/Vol] 11.3 10*3/uL High 3.99 - 11.19 K/uL [facility] CHEM 7 (LYTES,BUN,CREA,GLUC) on 08-07-2024 Anion gap [Moles/Vol] 13 mmol/L 7 - 17 mmol/L [facility] Chloride [Moles/Vol] 105 mmol/L 98 - 10 8 mmol/L [facility] CO2 [Moles/Vol] 28 mmol/L 21 - 31 mmol/L [facility] Creatinine [Mass/Vol] 1.19 mg/dL 0.50 - 1.20 mg/dL [facility] eGFR, CKD-EPI, Female 47 Low - PINF [facility] Glucose [Mass/Vol] 90 mg/dL 70 - 179 mg/dL [facility] Interpretation and review of laboratory results Abnormal [facility] Osmolality Calc [Osmolality] 304 [facility] Potassium [Moles/Vol] 4.2 mmol/L 3.5 - 5.0 mmol/L [facility] Sodium [Moles/Vol] 142 mmol/L 135 - 145 mmol/L [facility] Urea nitrogen [Mass/Vol] 34 mg/dL High 7 - 25 mg/dL [facility] Urea nitrogen/Creatinine [Mass ratio] 29 mg/mg [facility] GLUCOSE POCon 08-07-2024 Glucose [Mass/Vol] 185 mg/dL High 70 - 179 mg/dL [facility] Interpretation and review of laboratory results Abnormal [facility] POC Sample Type CAPBL [facility] Glucose [Mass/Vol] 106 mg/dL 70 - 179 mg/dL [facility] POC Sample Type CAPBL [facility] Glucose [Mass/Vol] 104 mg/dL 70 - 179 mg/dL [facility] POC Sample Type CAPBL [facility] MAGNESIUMon 08-07-2024 Interpretation and review of laboratory results Normal [facility] Magnesium [Mass/Vol] 1.8 mg/dL 1.6 - 2 .6 mg/dL [facility] No Panel Informationon 08-07 [facility] CBC,PLATELETSon 08-06-2024 Hematocrit (Bld) [Volume fraction] 43.1 % Normal 34.9-44.3 [facility] Comment on above: Performed By: #### X M #### [facility] (DEFAULT) [address] [address] Hemoglobin (Bld) [Mass/Vol] 13.7 g/dL Normal 11.4-15.2 [facility] Comment on above: Performed By: #### X M #### [facility] (DEFAULT) [address] [place] [address]309 MCV (RBC) [Entitic vol] 93.1 fL Normal 79.6-97.7 [facility] Comment on above: Performed By: #### X M #### [facility] (DEFAULT) [address] [address] Mean Cell Hgb 29.6 pg Normal 25.9-33.9 [facility] Comment on above: Performed By: #### X M #### [facility] (DEFAULT) [address] [address] Mean Cell Hgb Conc 31.8 g/dL Normal 31.4-35.9 [facility] Comment on above: Performed By: #### X M #### [facility] (DEFAULT) [address] [place] [address]019 Platelet mean volume (Bld) [Entitic vol] 11.1 fL Normal 8.5-12.2 [facility] Comment on above: Performed By: #### X M #### [facility] (DEFAULT) [address] [place] [address] 79019 Platelets (Bld) [#/Vol] 214 10*3/uL Normal 150-393 [facility] Comment on above: Performed By: #### X M #### [facility] (DEFAULT) [address] [place] [address] 71552 RBC (Bld) [#/Vol] 4.63 10*6/uL Normal 3.91-5.04 [facility] Comment on above: Performed By: #### X M #### [facility] (DEFAULT) [address] [place] [address] 34494 RBC Distribution 13.9 % Normal 10.8-14.9 [facility] Comment on above: Performed By: #### X M #### [facility] (DEFAULT) [address] [place] [address]607 WBC (Bld) [#/Vol] 11.30 10*3/uL High 3.99-11.19 [facility] Comment on above: Performed By: #### X M #### [facility] (DEFAULT) [address] [place] [address] 18833 Erythrocyte distribution width (RBC) [Ratio] 13.9 % 10.8 - 14.9 % [facility] Hematocrit (Bld) [Volume fraction] 44 % 34.9 - 44.3 % [facility] Hemoglobin (Bld) [Mass/Vol] 13.9 g/dL 11.4 - 15.2 g/dL [facility] Interpretation and review of laboratory results Abnormal [facility] MCH (RBC) [Entitic mass] 29.1 pg 25.9 - 33.9 pg [facility] MCHC (RBC) [Mass/Vol] 31.6 g/dL 31.4 - 35.9 g/dL [facility] MCV (RBC) [Entitic vol] 92.2 fL 79.6 - 97.7 fL [facility] Platelet mean volume (Bld) [Entitic vol] 10.7 fL 8.5 - 12.2 fL [facility] Platelets (Bld) [#/Vol] 216 10*3/uL 150 - 393 K/uL [facility] RBC (Bld) [#/Vol] 4.77 10*6/uL [facility] WBC (Bld) [#/Vol] 12.14 10*3/uL High 3.99 - 11.19 K/uL [facility] CHEM 7 (LYTES,BUN,CREA,GLUC) on 08-06-2024 Anion gap [Moles/Vol] 13 mmol/L Normal 7-17 [facility] Comment on above: Performed By: ###CAMERON TURNER ####[facility] (DEFAULT)[address] [place] [address] Chloride [Moles/Vol] 105 mmol/L Normal 98-108 [facility] Comment on above: Performed By: #### CAMERON PALACIOS ####[facility] (DEFAULT)[address] [place] [address] CO2 [Moles/Vol] 28 mmol/L Normal 21-31 [facility] Comment on above: Performed By: #### CAMERON PALACIOS ####[facility] (DEFAULT)[address] [place] [address] Creatinine [Mass/Vol] 1.19 mg/dL Normal 0.50-1.20 [facility] Comment on above: Performed By: #### CAMERON PALACIOS ####[facility] (DEFAULT)[address] [place] [address] GFR/1.73 sq M.predicted among non-blacks MDRD (S/P/Bld) [Vol rate/Area] 47 mL/min/{1.73_m2} Low >=60 [facility] Comment on above: Result Comment: Repo rted eGFR is based on the CKD-EPI 2020 equation using creatinine, age, and sex. Performed By: #### HEYDI PALACIOS7 ####[facility] (DEFAULT)[address] [place] [address] Glucose [Mass/Vol] 90 mg/dL Normal Nonfastin -179 mg/dL; Fastin-99 [facility] Comment on above: Performed By: #### HEYDI PALACIOS7 ####[facility] (DEFAULT)[address] [place] [address] Osmolality [Osmolality] 304 mosm/kg Normal 278-305 [facility] Comment on above: Performed By: #### HEYDI PALACIOS7 ####[facility] (DEFAULT)[address] [place] [address] Potassium [Moles/Vol] 4.2 mmol/L Normal 3.5-5.0 [facility] Comment on above: Performed By: #### Jaiden NGUYEN CHM7 ####[facility] (DEFAULT)[address] [place] [address] Sodium [Moles/Vol] 142 mmol/L Normal 135-145 [facility] Comment on above: Performed By: #### Jaiden NGUYEN CHM7 ####[facility] (DEFAULT)[address] [place] [address] Urea nitrogen [Mass/Vol] 34 mg/dL High 7-25 [facility] Comment on above: Performed By: #### Jaiden NGUYEN CHM7 ####[facility] (DEFAULT)[address] [place] [address] Urea nitrogen/Creatinine [Mass ratio] 29 mg/mg Normal [facility] Comment on above: Performed By: #### M [facility] ####[facility] (DEFAULT)[address] [place] [address] Anion gap [Moles/Vol] 14 mmol/L 7 - 17 mmol/L [facility] Chloride [Moles/Vol] 107 mmol/L 98 - 10 8 mmol/L [facility] CO2 [Moles/Vol] 27 mmol/L 21 - 31 mmol/L [facility] Creatinine [Mass/Vol] 1.19 mg/dL 0.50 - 1.20 mg/dL [facility] eGFR, CKD-EPI, Female 47 Low - PINF [facility] Glucose [Mass/Vol] 88 mg/dL 70 - 179 mg/dL [facility] Interpretation and review of laboratory results Abnormal [facility] Osmolality Calc [Osmolality] 307 High [facility] Potassium [Moles/Vol] 3.9 mmol/L 3.5 - 5.0 mmol/L [facility] Sodium [Moles/Vol] 144 mmol/L 135 - 145 mmol/L [facility] Urea nitrogen [Mass/Vol] 34 mg/dL High 7 - 25 mg/dL [facility] Urea nitrogen/Creatinine [Mass ratio] 29 mg/mg [facility] GLUCOSE POCon 08-06-2024 Glucose [Mass/Vol] 166 mg/dL 70 - 179 mg/dL [facility] Glucose [Mass/Vol] 106 mg/dL 70 - 179 mg/dL [facility] Glucose [Mass/Vol] 100 mg/dL 70 - 179 mg/dL [facility] POC Sample Type [facility] Glucose [Mass/Vol] 219 mg/dL High 70 - 179 mg/dL [facility] Interpretation and review of laboratory results Abnormal [facility] Glucose [Mass/Vol] 249 mg/dL High 70 - 179 mg/dL [facility] Glucose [Mass/Vol] 178 mg/dL 70 - 179 mg/dL [facility] Glucose [Mass/Vol] 194 mg/dL High 70 - 179 mg/dL [facility] Glucose [Mass/Vol] 93 mg/dL 70 - 179 mg/dL [facility] POC Sample Type [facility] IONIZED CALCIUM, WHOLE BLOOD Ordered By: Zuleika Blunt on 08-06-2024 Calcium.ionized (Bld) [Moles/Vol] 4.72 mg/dL 4.60 - 5.30 mg/dL [facility] Interpretation and review of laboratory results Normal [facility] MAGNESIUMon 08-06-2024 Magnesium [Mass/Vol] 1.8 mg/dL Normal 1.6-2.6 [facility] Comment on above: Performed By: #### M [facility] ####[facility] (DEFAULT)[address] [place] [address] Magnesium [Mass/Vol] 2.4 mg/dL 1.6 - 2 .6 mg/dL [facility] No Panel Informationon 08-06 POC Sample Type CAPBL [facility] Interpretation and review of laboratory results Abnormal [facility] POC Sample Type CAPBL [facility] Interpretation and review of laboratory results Normal [facility] PHOSPHATE, INORGANICon 08-06 Phosphate [Mass/Vol] 3.2 mg/dL 2.2 - 4 .6 mg/dL [facility] RF videography Hypopharynx a nd Esophagus Views W liquid and paste contrast PO during swallowingon 08-06-2024 RADIOLOGY RADIOLOGY [facility] Radiology Study observation (narrative) [facility] RF videography Hypopharynx a nd Esophagus Views W liquid and paste contrast PO during swallowingOrdered By: Gerry Resendez on 08-06-2024 [facility] Work Phone: SPEECH MODIFIED BARIUM SWALL OWon 08-06-2024 [facility] XR FLUORO MODIFIED BARIUM SW ALLOW [...] for specific therapeutic recommendations, please see the humanities professor report of the speech pathologist. Examination performed by ARCADIO Nicole, under the direct supervision of Gerry Resendez M.D., who was immediately available on site during the examination. I personally viewed and interpreted these images and I have reviewed and approved this report. Normal [facility] CBC,PLATELETSon 08-05-2024 Hematocrit (Bld) [Volume fraction] 44.0 % Normal 34.9-44.3 [facility] Comment on above: Performed By: #### B LDCULT #### [facility] (DEFAULT) [address] [address] Hemoglobin (Bld) [Mass/Vol] 13.9 g/dL Normal 11.4-15.2 [facility] Comment on above: Performed By: #### B LDCULT #### [facility] (DEFAULT) [address] [place] [address]199 MCV (RBC) [Entitic vol] 92.2 fL Normal 79.6-97.7 [facility] Comment on above: Performed By: #### B LDCULT #### [facility] (DEFAULT) [address] [place] [address] Mean Cell Hgb 29.1 pg Normal 25.9-33.9 [facility] Comment on above: Performed By: #### B LDCULT #### [facility] (DEFAULT) [address] [place] [address] Mean Cell Hgb Conc 31.6 g/dL Normal 31.4-35.9 [facility] Comment on above: Performed By: #### B LDCULT #### [facility] (DEFAULT) [address] [place] [address] Platelet mean volume (Bld) [Entitic vol] 10.7 fL Normal 8.5-12.2 [facility] Comment on above: Performed By: #### B LDCULT #### [facility] (DEFAULT) [address] [place] [address] Platelets (Bld) [#/Vol] 216 10*3/uL Normal 150-393 [facility] Comment on above: Performed By: #### B LDCULT #### [facility] (DEFAULT) [address] [place] [address] RBC (Bld) [#/Vol] 4.77 10*6/uL Normal 3.91-5.04 [facility] Comment on above: Performed By: #### B LDCULT #### [facility] (DEFAULT) [address] [place] [address]70 RBC Distribution 13.9 % Normal 10.8-14.9 [facility] Comment on above: Performed By: #### B LDCULT #### [facility] (DEFAULT) [address] [place] [address] WBC (Bld) [#/Vol] 12.14 10*3/uL High 3.99-11.19 [facility] Comment on above: Performed By: #### B LDCULT #### [facility] (DEFAULT) [address] [place] [address] Erythrocyte distribution width (RBC) [Ratio] 13.9 % 10.8 - 14.9 % [facility] Hematocrit (Bld) [Volume fraction] 39.6 % 34.9 - 44.3 % [facility] Hemoglobin (Bld) [Mass/Vol] 12.6 g/dL 11.4 - 15.2 g/dL [facility] Interpretation and review of laboratory results Normal [facility] MCH (RBC) [Entitic mass] 29.3 pg 25.9 - 33.9 pg [facility] MCHC (RBC) [Mass/Vol] 31.8 g/dL 31.4 - 35.9 g/dL [facility] MCV (RBC) [Entitic vol] 92.1 fL 79.6 - 97.7 fL [facility] Platelet mean volume (Bld) [Entitic vol] 10.7 fL 8.5 - 12.2 fL [facility] Platelets (Bld) [#/Vol] 198 10*3/uL 150 - 393 K/uL [facility] RBC (Bld) [#/Vol] 4.3 10*6/uL [facility] WBC (Bld) [#/Vol] 10.61 10*3/uL 3.99 - 11.19 K/uL [facility] Hematocrit (Bld) [Volume fraction] 39.6 % Normal 34.9-44.3 [facility] Comment on above: Performed By: #### H [facility] ####[facility] (DEFAULT)[address] [place] [address] Hemoglobin (Bld) [Mass/Vol] 12.6 g/dL Normal 11.4-15.2 [facility] Comment on above: Performed By: #### H [facility] ####[facility] (DEFAULT)[address] [place] [address] MCV (RBC) [Entitic vol] 92.1 fL Normal 79.6-97.7 [facility] Comment on above: Performed By: #### H EMOGC ####[facility] (DEFAULT)[address] [place] [address] Mean Cell Hgb 29.3 pg Normal 25.9-33.9 [facility] Comment on above: Performed By: #### H EMOGC ####[facility] (DEFAULT)[address] [place] [address] Mean Cell Hgb Conc 31.8 g/dL Normal 31.4-35.9 [facility] Comment on above: Performed By: #### H EMOGC ####[facility] (DEFAULT)[address] [place] [address] Platelet mean volume (Bld) [Entitic vol] 10.7 fL Normal 8.5-12.2 [facility] Comment on above: Performed By: #### H EMOGC ####[facility] (DEFAULT)[address] [place] [address] Platelets (Bld) [#/Vol] 198 10*3/uL Normal 150-393 [facility] Comment on above: Performed By: #### H EMOGC ####[facility] (DEFAULT)[address] [place] [address] RBC (Bld) [#/Vol] 4.30 10*6/uL Normal 3.91-5.04 [facility] Comment on above: Performed By: #### H EMOGC ####[facility] (DEFAULT)[address] [place] [address] RBC Distribution 13.9 % Normal 10.8-14.9 [facility] Comment on above: Performed By: #### H EMOGC ####[facility] (DEFAULT)[address] [place] [address] WBC (Bld) [#/Vol] 10.61 10*3/uL Normal 3.99-11.19 [facility] Comment on above: Performed By: #### H EMO ####[facility] (DEFAULT)[address] [place] [address] CHEM 7 (LYTES,BUN,CREA,GLUC) on 08-05-2024 Anion gap [Moles/Vol] 14 mmol/L Normal 7-17 [facility] Comment on above: Performed By: #### S URGP #### [facility] (DEFAULT) [address] [place] [address] Chloride [Moles/Vol] 107 mmol/L Normal 98-108 [facility] Comment on above: Performed By: #### S URGP #### [facility] (DEFAULT) [address] [place] [address]39 CO2 [Moles/Vol] 27 mmol/L Normal 21-31 [facility] Comment on above: Performed By: #### S URGP #### [facility] (DEFAULT) [address] [place] [address]278 Creatinine [Mass/Vol] 1.19 mg/dL Normal 0.50-1.20 [facility] Comment on above: Performed By: #### S URGP #### [facility] (DEFAULT) [address] [place] [address] 59547 GFR/1.73 sq M.predicted among non-blacks MDRD (S/P/Bld) [Vol rate/Area] 47 mL/min/{1.73_m2} Low >=60 [facility] Comment on above: Result Comment: Repo rted eGFR is based on the CKD-EPI 2020 equation using creatinine, age, and sex. Performed By: #### S URGP #### [facility] (DEFAULT) [address] [place] [address] Glucose [Mass/Vol] 88 mg/dL Normal Nonfastin -179 mg/dL; Fastin-99 [facility] Comment on above: Performed By: #### S URGP #### [facility] (DEFAULT) [address] [place] [address] Osmolality [Osmolality] 307 mosm/kg High 278-305 [facility] Comment on above: Performed By: #### S URGP #### [facility] (DEFAULT) [address] [place] [address]42 Potassium [Moles/Vol] 3.9 mmol/L Normal 3.5-5.0 [facility] Comment on above: Performed By: #### S URGP #### [facility] (DEFAULT) [address] [place] [address]778 Sodium [Moles/Vol] 144 mmol/L Normal 135-145 [facility] Comment on above: Performed By: #### S URGP #### [facility] (DEFAULT) [address] [place] [address] 8[address]45 Urea nitrogen [Mass/Vol] 34 mg/dL High 7-25 [facility] Comment on above: Performed By: #### S URGP #### [facility] (DEFAULT) [address] [place] [address] Urea nitrogen/Creatinine [Mass ratio] 29 mg/mg Normal [facility] Comment on above: Performed By: #### S URGP #### [facility] (DEFAULT) [address] [place] [address] Anion gap [Moles/Vol] 14 mmol/L 7 - 17 mmol/L [facility] Chloride [Moles/Vol] 108 mmol/L 98 - 10 8 mmol/L [facility] CO2 [Moles/Vol] 25 mmol/L 21 - 31 mmol/L [facility] Creatinine [Mass/Vol] 1.45 mg/dL High 0.50 - 1.20 mg/dL [facility] eGFR, CKD-EPI, Female 37 Low - PINF [facility] Glucose [Mass/Vol] 242 mg/dL High 70 - 179 mg/dL [facility] Interpretation and review of laboratory results Abnormal [facility] Osmolality Calc [Osmolality] 315 High [facility] Potassium [Moles/Vol] 3.8 mmol/L 3.5 - 5.0 mmol/L [facility] Sodium [Moles/Vol] 143 mmol/L 135 - 145 mmol/L [facility] Urea nitrogen [Mass/Vol] 35 mg/dL High 7 - 25 mg/dL [facility] Urea nitrogen/Creatinine [Mass ratio] 24 mg/mg [facility] Anion gap [Moles/Vol] 14 mmol/L Normal 7-17 [facility] Comment on above: Performed By: #### X M #### [facility] (DEFAULT) [address] [place] [address] Chloride [Moles/Vol] 108 mmol/L Normal 98-108 [facility] Comment on above: Performed By: #### X M #### [facility] (DEFAULT) [address] [place] [address] CO2 [Moles/Vol] 25 mmol/L Normal 21-31 [facility] Comment on above: Performed By: #### X M #### [facility] (DEFAULT) [address] [place] [address] Creatinine [Mass/Vol] 1.45 mg/dL High 0.50-1.20 [facility] Comment on above: Performed By: #### X M #### [facility] (DEFAULT) [address] [place] [address] GFR/1.73 sq M.predicted among non-blacks MDRD (S/P/Bld) [Vol rate/Area] 37 mL/min/{1.73_m2} Low >=60 [facility] Comment on above: Result Comment: Repo rted eGFR is based on the CKD-EPI 2020 equation using creatinine, age, and sex. Performed By: #### X M #### [facility] (DEFAULT) [address] [place] [address] 97432 Glucose [Mass/Vol] 242 mg/dL High Nonfastin -179 mg/dL; Fastin-99 [facility] Comment on above: Performed By: #### X M #### [facility] (DEFAULT) [address] [place] [address] 76592 Osmolality [Osmolality] 315 mosm/kg High 278-305 [facility] Comment on above: Performed By: #### X M #### [facility] (DEFAULT) [address] [place] [address] 21519 Potassium [Moles/Vol] 3.8 mmol/L Normal 3.5-5.0 [facility] Comment on above: Performed By: #### X M #### [facility] (DEFAULT) [address] [place] [address] 95983 Sodium [Moles/Vol] 143 mmol/L Normal 135-145 [facility] Comment on above: Performed By: #### X M #### [facility] (DEFAULT) [address] [place] [address] 56098 Urea nitrogen [Mass/Vol] 35 mg/dL High 7-25 [facility] Comment on above: Performed By: #### X M #### [facility] (DEFAULT) [address] [place] [address] 18884 Urea nitrogen/Creatinine [Mass ratio] 24 mg/mg Normal [facility] Comment on above: Performed By: #### X M #### [facility] (DEFAULT) [address] [place] [address] 22615 Cardiac echo study Procedure Ordered By: Ezequiel Figueroa on 08-05-2024 Ao ASC index 1.56 cm/m2 [facility] Work Phone: Ao peak fidel 1.23 m/s [facility] Work Phone: Ao SOV index 1.56 cm/m2 [facility] Work Phone: [phone] Ao STJ index 1.36 cm/m2 [facility] Work Phone: [phone] Ao VTI 24.81 cm [facility] Work Phone: [phone] Ascending [facility] 2.97 [facility]: [phone] AV LVOT peak gradient 4 mmHg [facility] Work Phone: [phone] AV mean gradient 4 mmHg [facility] Work Phone: [phone] AV peak gradient 6 mmHG [facility] Work Phone: [phone] AV valve area 2.72 cm2 [facility] Work Phone: [phone] AV Velocity Ratio 0.8 [facility] Work Phone: [phone] MARKUS (continuity Vmax) 2.55 cm2 [facility] Work Phone: [phone] MARKUS (continuity VTI) 2.72 cm2 [facility] Work Phone: [phone] MARKUS index (continuity Vmax) 1.34 m/s [facility] Work Phone: [phone] MARKUS index (continuity VTI) 1.43 cm2/m2 [facility] Work Phone: [phone] Avg e' pk fidel 0.09 m/s [facility] Work Phone: [phone] Body surface area Derived from formula 1.9 m2 [facility] Work Phone: [phone] BP EF 55 % [facility] Work Phone: [phone] DI (Vmax) 0.8 [facility] Work Phone: [phone] DI (VTI) 0.86 m/2 [facility] Work Phone: [phone] e' lateral pk fidel 0.0845 m/s [facility]: [phone] e' lateral pk fidel 0.08 m/s [facility] Work Phone: [phone] e' septal pk fidel 0.0953 m/s [facility] Work Phone: [phone] e' septal pk fidel 0.1 m/s [facility] Work Phone: [phone] EF SP 2CH 56 [facility] Work Phone: [phone] EF SP 4CH 51 [facility] Work Phone: [phone] EST RAP 3 mmHg [facility] Work Phone: [phone] EST RVSP 29 mmHg [facility] Work Phone: [phone] FS 31 % [facility] Work Phone: [phone] IVC ostium 1.64 cm [facility] Work Phone: [phone] IVS 1.14 cm [facility] Work Phone: [phone] LA area 4CH 29.07 cm2 [facility] Work Phone: [phone] LA ESV BP (MOD) 86 mL [facility] Work Phone: [phone] LA ESV BP (MOD) index 45 mL/m2 [facility] Work Phone: [phone] LA ESV SP 2CH (MOD) 81 mL [facility] Work Phone: [phone] LA ESV SP 4CH (MOD) 93 mL [facility] Work Phone: [phone] LV EDV BP 88 mL [facility] Work Phone: [phone] LV EDV SP 2CH 85 mL [facility] Work Phone: [phone] LV EDV SP 4CH 86 mL [facility] Work Phone: [phone] LV ESV BP 40 mL [facility] Work Phone: [phone] LV ESV SP 2CH 37 mL [facility] Work Phone: [phone] LV ESV SP 4CH 42 mL [facility] Work Phone: [phone] LV mass 146.48 g [facility] Work Phone: [phone] LV Mass Index 77.1 g/m2 [facility] Work Phone: [phone] LV RWT 0.56 [facility] Work Phone: [phone] LV stroke volume BP (ml) 48 mL [facility] Work Phone: [phone] LV stroke volume index BP 25.26 mL/m2 [facility] Work Phone: [phone] LVIDD 3.93 cm [facility] Work Phone: [phone] LVIDS 2.7 cm [facility] Work Phone: [phone] LVOT area 3.17 cm2 [facility] Work Phone: [phone] LVOT diameter 2.01 cm [facility] Work Phone: [phone] LVOT peak fiedl 0.99 m/s [facility] Work Phone: [phone] LVOT peak VTI 21.3 cm [facility] Work Phone: [phone] LVOT stroke volume 68 cm3 [facility] Work Phone: [phone] LVOT stroke volume index 35.55 ml/m2 [facility] Work Phone: [phone] MV mean gradient 3 mmHg [facility] Work Phone: [phone] MV peak gradient 6 mmHg [facility] Work Phone: [phone] MV valve area by continuity eq 2.61 cm2 [facility] Work Phone: [phone] MV VTI 25.92 cm [facility] Work Phone: [phone] MVA (continuity VTI) 2.6 cm [facility] Work Phone: [phone] [facility] AV VTI RATIO PRE STRESS 0.86 [facility] Work Phone: [facility] ECHO LV BIPLANE SYSTOLIC VOLUME INDEX 21.05 mL/m2 [facility] Work Phone: [facility] ECHO LV BP DIASTOLIC VOLUME INDEX 46.32 mL/m2 [facility] Work Phone: PV mean gradient 3 mmHg [facility] Work Phone: [phone] PV peak gradient 6 mmHg [facility] Work Phone: [phone] PV PK FIDEL 1.23 m/s [facility] Work Phone: PW 1.11 cm [facility] Work Phone: RA area 4CH (MOD) 22.74 cm2 [facility] Work Phone: RA vol index 4CH (MOD) 36.32 mL/m2 [facility] Work Phone: Right atrium volume 4 chamber method of disks 69 mL [facility] Work Phone: RV Area diastolic 17.5 cm2 [facility] Work Phone: RV Area systolic 11.9 cm2 [facility] Work Phone: RV basal diam 4.56 cm [facility] Work Phone: RV Fractional area change 32 % [facility] Work Phone: RV long diam 6.91 cm [facility] Work Phone: RV mid diam 2.91 cm [facility] Work Phone: RV S' 12.81 cm/s [facility] Work Phone: RVOT peak gradient 5 mmHg [facility] Work Phone: [phone] RVOT peak fidel 1.07 m/s [facility] Work Phone: RVOT peak VTI 20.1 cm [facility] Work Phone: Sinus 2.97 cm [facility] Work Phone: STJ 2.58 cm [facility] Work Phone: Stroke Volume 68 cm/mL [facility] Work Phone: Stroke volume index 36 [facility] Work Phone: TAPSE 2.08 cm [facility] Work Phone: TR pk grad 26 mmHg [facility] Work Phone: TR pk fidel 2.53 m/s [facility] Work Phone: [facility] Work Phone: Cardiac echo study Procedure on 08-05-2024 [facility] Radiology Study observation (narrative) [facility] ECHOCARDIOGRAMon 08-05-2024 Echocardiography ? No prior study [...] from the original result were not included. [facility] Facility [facility] Patient Information Patient Name Lindsay Acuna [...] Role Read Date Ezequiel Figueroa DO Echo [place] 08/05/2024 Left Heart Measurements LV - Systole [...] long di (more content not included)... Normal [facility] GLUCOSE POCon 08-05-2024 Glucose [Mass/Vol] 228 mg/dL High 70 - 179 mg/dL [facility] Interpretation and review of laboratory results Abnormal [facility] POC Sample Type CAPBL [facility] IONIZED CALCIUM, WHOLE BLOOD on 08-05-2024 ICA 4.72 mg/dL Normal 4.60-5.30 [facility] Comment on above: Performed By: #### S URGP #### [facility] (DEFAULT) [address] [address] ICA 4.69 mg/dL Normal 4.60-5.30 [facility] Comment on above: Performed By: #### S URGP #### [facility] (DEFAULT) [address] [place] [address] 0[address] IONIZED CALCIUM, WHOLE BLOOD Ordered By: Jairo Layton on 08-05-2024 Calcium.ionized (Bld) [Moles/Vol] 4.69 mg/dL 4.60 - 5.30 mg/dL [facility] Interpretation and review of laboratory results Normal [facility] MAGNESIUMon 08-05-2024 Magnesium [Mass/Vol] 2.4 mg/dL Normal 1.6-2.6 [facility] Comment on above: Performed By: #### S URGP #### [facility] (DEFAULT) [address] [place] [address] 60041 Magnesium [Mass/Vol] 1.8 mg/dL 1.6 - 2 .6 mg/dL [facility] Magnesium [Mass/Vol] 1.8 mg/dL Normal 1.6-2.6 [facility] Comment on above: Performed By: #### X M #### [facility] (DEFAULT) [address] [address] No Panel Informationon 08-05 Interpretation and review of laboratory results Normal [facility] PHOSPHATE, INORGANICon 08-05 Phosphorous 3.2 mg/dL Normal 2.2-4.6 [facility] Comment on above: Performed By: #### S URGP #### [facility] (DEFAULT) [address] [place] [address] 32706 Phosphate [Mass/Vol] 2.7 mg/dL 2.2 - 4 .6 mg/dL [facility] Phosphorous 2.7 mg/dL Normal 2.2-4.6 [facility] Comment on above: Performed By: #### X M #### [facility] (DEFAULT) [address] [place] [address] [facility] FA[employer] AGOrde red By: Madhavi Mcelroy on 08-05-2024 Interpretation and review of laboratory results Abnormal [facility] vWf Ag actual/normal [place] (PPP) [Relative mass conc] 230 % High 50 - 180 % [facility] CBC,PLATELETSon 08-04-2024 Erythrocyte distribution width (RBC) [Ratio] 13.7 % 10.8 - 14.9 % [facility] Hematocrit (Bld) [Volume fraction] 40.8 % 34.9 - 44.3 % [facility] Hemoglobin (Bld) [Mass/Vol] 12.7 g/dL 11.4 - 15.2 g/dL [facility] Interpretation and review of laboratory results Abnormal [facility] MCH (RBC) [Entitic mass] 28.7 pg 25.9 - 33.9 pg [facility] MCHC (RBC) [Mass/Vol] 31.1 g/dL Low 31.4 - 35.9 g/dL [facility] MCV (RBC) [Entitic vol] 92.1 fL 79.6 - 97.7 fL [facility] Platelet mean volume (Bld) [Entitic vol] 10.8 fL 8.5 - 12.2 fL [facility] Platelets (Bld) [#/Vol] 228 10*3/uL 150 - 393 K/uL [facility] RBC (Bld) [#/Vol] 4.43 10*6/uL [facility] WBC (Bld) [#/Vol] 11.41 10*3/uL High 3.99 - 11.19 K/uL [facility] Hematocrit (Bld) [Volume fraction] 40.8 % Normal 34.9-44.3 [facility] Comment on above: Performed By: #### H EMOGC #### [facility] (DEFAULT) [address] [place] [address] 26791 Hemoglobin (Bld) [Mass/Vol] 12.7 g/dL Normal 11.4-15.2 [facility] Comment on above: Performed By: #### H EMOGC #### [facility] (DEFAULT) [address] [place] [address] 03229 MCV (RBC) [Entitic vol] 92.1 fL Normal 79.6-97.7 [facility] Comment on above: Performed By: #### H EMOGC #### [facility] (DEFAULT) [address] [place] [address] 53882 Mean Cell Hgb 28.7 pg Normal 25.9-33.9 [facility] Comment on above: Performed By: #### H EMOGC #### [facility] (DEFAULT) [address] [place] [address] 51917 Mean Cell Hgb Conc 31.1 g/dL Low 31.4-35.9 [facility] Comment on above: Performed By: #### H EMOGC #### [facility] (DEFAULT) [address] [place] [address] 69053 Platelet mean volume (Bld) [Entitic vol] 10.8 fL Normal 8.5-12.2 [facility] Comment on above: Performed By: #### H EMOGC #### [facility] (DEFAULT) [address] [place] [address] 40788 Platelets (Bld) [#/Vol] 228 10*3/uL Normal 150-393 [facility] Comment on above: Performed By: #### H EMOGC #### [facility] (DEFAULT) [address] [place] [address] 86573 RBC (Bld) [#/Vol] 4.43 10*6/uL Normal 3.91-5.04 [facility] Comment on above: Performed By: #### H EMOGC #### [facility] (DEFAULT) [address] [place] [address] RBC Distribution 13.7 % Normal 10.8-14.9 [facility] Comment on above: Performed By: #### H [facility] #### [facility] (DEFAULT) [address] [place] [address] WBC (Bld) [#/Vol] 11.41 10*3/uL High 3.99-11.19 [facility] Comment on above: Performed By: #### H [facility] #### [facility] (DEFAULT) [address] [place] [address] CHEM 7 (LYTES,BUN,CREA,GLUC) Ordered By: Lizette Canseco on 08-04-2024 Anion gap [Moles/Vol] 16 mmol/L 7 - 17 mmol/L [facility] Chloride [Moles/Vol] 109 mmol/L High 98 - 10 8 mmol/L [facility] CO2 [Moles/Vol] 24 mmol/L 21 - 31 mmol/L [facility] Creatinine [Mass/Vol] 1.47 mg/dL High 0.50 - 1.20 mg/dL [facility] eGFR, CKD-EPI, Female 36 Low - PINF [facility] Glucose [Mass/Vol] 181 mg/dL High 70 - 179 mg/dL [facility] Interpretation and review of laboratory results Abnormal [facility] Osmolality Calc [Osmolality] 312 High [facility] Potassium [Moles/Vol] 4 mmol/L 3.5 - 5.0 mmol/L [facility] Sodium [Moles/Vol] 145 mmol/L 135 - 145 mmol/L [facility] Urea nitrogen [Mass/Vol] 26 mg/dL High 7 - 25 mg/dL [facility] Urea nitrogen/Creatinine [Mass ratio] 18 mg/mg [facility] CHEM 7 (LYTES,BUN,CREA,GLUC) on 08-04-2024 Anion gap [Moles/Vol] 16 mmol/L Normal 7-17 [facility] Comment on above: Performed By: #### S URGP #### [facility] (DEFAULT) [address] [place] [address] 95449 Chloride [Moles/Vol] 109 mmol/L High 98-108 [facility] Comment on above: Performed By: #### S URGP #### [facility] (DEFAULT) [address] [place] [address] 59819 CO2 [Moles/Vol] 24 mmol/L Normal 21-31 [facility] Comment on above: Performed By: #### S URGP #### [facility] (DEFAULT) [address] [place] [address] 22914 Creatinine [Mass/Vol] 1.47 mg/dL High 0.50-1.20 [facility] Comment on above: Performed By: #### S URGP #### [facility] (DEFAULT) [address] [place] [address] 14742 GFR/1.73 sq M.predicted among non-blacks MDRD (S/P/Bld) [Vol rate/Area] 36 mL/min/{1.73_m2} Low >=60 [facility] Comment on above: Result Comment: Repo rted eGFR is based on the CKD-EPI 2020 equation using creatinine, age, and sex. Performed By: #### S URGP #### [facility] (DEFAULT) [address] [place] [address] 14853 Glucose [Mass/Vol] 181 mg/dL High Nonfastin -179 mg/dL; Fastin-99 [facility] Comment on above: Performed By: #### S URGP #### [facility] (DEFAULT) [address] [place] [address] 61396 Osmolality [Osmolality] 312 mosm/kg High 278-305 [facility] Comment on above: Performed By: #### S URGP #### [facility] (DEFAULT) [address] [place] [address] 95297 Potassium [Moles/Vol] 4.0 mmol/L Normal 3.5-5.0 [facility] Comment on above: Performed By: #### S URGP #### [facility] (DEFAULT) [address] [place] [address] 24078 Sodium [Moles/Vol] 145 mmol/L Normal 135-145 [facility] Comment on above: Performed By: #### S URGP #### [facility] (DEFAULT) [address] [place] [address] 63109 Urea nitrogen [Mass/Vol] 26 mg/dL High 7-25 [facility] Comment on above: Performed By: #### S URGP #### [facility] (DEFAULT) [address] [place] [address] 06770 Urea nitrogen/Creatinine [Mass ratio] 18 mg/mg Normal [facility] Comment on above: Performed By: #### S URGP #### [facility] (DEFAULT) [address] [place] [address] HEAD WITHOUT CONTRASTon 0 08-04-2024 CT [...] sinuses are clear. IMPRESSION: Stable exam. Normal [facility] CT Head WO contraston 2024 RADIOLOGY RADIOLOGY [facility] CT Head WO contrastOrdered B y: Chirag Mendenhall on 08-04-2024 [facility] Work Phone: GLUCOSE POCon 08-04-2024 Glucose [Mass/Vol] 227 mg/dL High 70 - 179 mg/dL [facility] Interpretation and review of laboratory results Abnormal [facility] POC Sample Type [facility] Glucose [Mass/Vol] 235 mg/dL High 70 - 179 mg/dL [facility] Interpretation and review of laboratory results Abnormal [facility] POC Sample Type [facility] Glucose [Mass/Vol] 215 mg/dL High 70 - 179 mg/dL [facility] Interpretation and review of laboratory results Abnormal [facility] POC Sample Type [facility]BL [facility] Glucose [Mass/Vol] 178 mg/dL 70 - 179 mg/dL [facility] Glucose [Mass/Vol] 157 mg/dL 70 - 179 mg/dL [facility] Glucose [Mass/Vol] 271 mg/dL High 70 - 179 mg/dL [facility] Glucose [Mass/Vol] 267 mg/dL High 70 - 179 mg/dL [facility] Glucose [Mass/Vol] 246 mg/dL High 70 - 179 mg/dL [facility] IONIZED CALCIUM, WHOLE BLOOD Ordered By: Laura Rodriguez on 08-04-2024 Calcium.ionized (Bld) [Moles/Vol] 4.8 mg/dL 4.60 - 5.30 mg/dL [facility] Interpretation and review of laboratory results Normal [facility] IONIZED CALCIUM, WHOLE BLOOD on 08-04-2024 ICA 4.80 mg/dL Normal 4.60-5.30 [facility] Comment on above: Performed By: #### T YPEC #### [facility] (DEFAULT) [address] [place] [address] MAGNESIUMon 08-04-2024 Magnesium [Mass/Vol] 1.9 mg/dL 1.6 - 2 .6 mg/dL [facility] Magnesium [Mass/Vol] 1.9 mg/dL Normal 1.6-2.6 [facility] Comment on above: Performed By: #### X M #### [facility] (DEFAULT) [address] [place] [address] 25736 No Panel Informationon 08-04 POC Sample Type CAPBL [facility] Interpretation and review of laboratory results Abnormal [facility] Interpretation and review of laboratory results Normal [facility] PHOSPHATE, INORGANICon 08-04 Phosphate [Mass/Vol] 2.8 mg/dL 2.2 - 4 .6 mg/dL [facility] Phosphorous 2.8 mg/dL Normal 2.2-4.6 [facility] Comment on above: Performed By: #### X M #### [facility] (DEFAULT) [address] [place] [address] 17318 SODIUMon 08-04-2024 Interpretation and review of laboratory results Normal [facility] Sodium [Moles/Vol] 142 mmol/L 135 - 145 mmol/L [facility] Sodium [Moles/Vol] 142 mmol/L Normal 135-145 [facility] Comment on above: Order Comment: While on 3% Hypertonic Saline. Performed By: #### S URGP #### [facility] (DEFAULT) [address] [place] [address] 17424 Interpretation and review of laboratory results Normal [facility] Sodium [Moles/Vol] 141 mmol/L 135 - 145 mmol/L [facility] Sodium [Moles/Vol] 141 mmol/L Normal 135-145 [facility] Comment on above: Order Comment: 2 [...] bottle. Performed By: #### B LDCULT #### [facility] (DEFAULT) [address] [place] [address] Interpretation and review of laboratory results Normal [facility] Sodium [Moles/Vol] 143 mmol/L 135 - 145 mmol/L [facility] Sodium [Moles/Vol] 143 mmol/L Normal 135-145 [facility] Comment on above: Order Comment: While on 3% Hypertonic Saline. Performed By: #### H EMO #### [facility] (DEFAULT) [address] [place] [address] ABORH TYPE RECONFIRMATIONon 08-03-2024 ABO/RH(D) TYPE Negative [facility] ABO/RH(D) TYPE Negative Normal [facility] Comment on above: Performed By: #### T YPEC #### [facility] (DEFAULT) [address] [address] CBC,PLATELETSon 08-03-2024 Erythrocyte distribution width (RBC) [Ratio] 13.2 % 10.8 - 14.9 % [facility] Hematocrit (Bld) [Volume fraction] 42.8 % 34.9 - 44.3 % [facility] Hemoglobin (Bld) [Mass/Vol] 13.5 g/dL 11.4 - 15.2 g/dL [facility] Interpretation and review of laboratory results Normal [facility] MCH (RBC) [Entitic mass] 29.2 pg 25.9 - 33.9 pg [facility] MCHC (RBC) [Mass/Vol] 31.5 g/dL 31.4 - 35.9 g/dL [facility] MCV (RBC) [Entitic vol] 92.4 fL 79.6 - 97.7 fL [facility] Platelet mean volume (Bld) [Entitic vol] 11.2 fL 8.5 - 12.2 fL [facility] Platelets (Bld) [#/Vol] 227 10*3/uL 150 - 393 K/uL [facility] RBC (Bld) [#/Vol] 4.63 10*6/uL [facility] WBC (Bld) [#/Vol] 8.43 10*3/uL 3.99 - 11.19 K/uL [facility] Hematocrit (Bld) [Volume fraction] 42.8 % Normal 34.9-44.3 [facility] Comment on above: Performed By: #### X M #### [facility] (DEFAULT) [address] [address] Hemoglobin (Bld) [Mass/Vol] 13.5 g/dL Normal 11.4-15.2 [facility] Comment on above: Performed By: #### X M #### [facility] (DEFAULT) [address] [address] MCV (RBC) [Entitic vol] 92.4 fL Normal 79.6-97.7 [facility] Comment on above: Performed By: #### X M #### [facility] (DEFAULT) [address] [place] [address] 40368 Mean Cell Hgb 29.2 pg Normal 25.9-33.9 [facility] Comment on above: Performed By: #### X M #### [facility] (DEFAULT) [address] [address] Mean Cell Hgb Conc 31.5 g/dL Normal 31.4-35.9 [facility] Comment on above: Performed By: #### X M #### [facility] (DEFAULT) [address] [place] [address] 93370 Platelet mean volume (Bld) [Entitic vol] 11.2 fL Normal 8.5-12.2 [facility] Comment on above: Performed By: #### X M #### [facility] (DEFAULT) [address] [place] [address] 92067 Platelets (Bld) [#/Vol] 227 10*3/uL Normal 150-393 [facility] Comment on above: Performed By: #### X M #### [facility] (DEFAULT) [address] [place] [address] 69564 RBC (Bld) [#/Vol] 4.63 10*6/uL Normal 3.91-5.04 [facility] Comment on above: Performed By: #### X M #### [facility] (DEFAULT) [address] [place] [address] 25972 RBC Distribution 13.2 % Normal 10.8-14.9 [facility] Comment on above: Performed By: #### X M #### [facility] (DEFAULT) [address] [place] [address] 57612 WBC (Bld) [#/Vol] 8.43 10*3/uL Normal 3.99-11.19 [facility] Comment on above: Performed By: #### X M #### [facility] [facility] [address] [place] [id number] CHEM 7 (LYTES,BUN,CREA,GLUC) on 08-03-2024 Anion gap [Moles/Vol] 16 mmol/L 7 - 17 mmol/L [facility] Chloride [Moles/Vol] 103 mmol/L 98 - 10 8 mmol/L [facility] CO2 [Moles/Vol] 23 mmol/L 21 - 31 mmol/L [facility] Creatinine [Mass/Vol] 1.35 mg/dL High 0.50 - 1.20 mg/dL [facility] eGFR, CKD-EPI, Female 40 Low - PINF [facility] Glucose [Mass/Vol] 151 mg/dL 70 - 179 mg/dL [facility] Interpretation and review of laboratory results Abnormal [facility] Osmolality Calc [Osmolality] 295 [facility] Potassium [Moles/Vol] 4.3 mmol/L 3.5 - 5.0 mmol/L [facility] Sodium [Moles/Vol] 138 mmol/L 135 - 145 mmol/L [facility] Urea nitrogen [Mass/Vol] 18 mg/dL 7 - 25 mg/dL [facility] Urea nitrogen/Creatinine [Mass ratio] 13 mg/mg [facility] Anion gap [Moles/Vol] 16 mmol/L Normal 7-17 [facility] Comment on above: Performed By: #### S URGP #### [facility] (DEFAULT) [address] [place] [address]46 Chloride [Moles/Vol] 103 mmol/L Normal 98-108 [facility] Comment on above: Performed By: #### S URGP #### [facility] (DEFAULT) [address] [place] [address] 29205 CO2 [Moles/Vol] 23 mmol/L Normal 21-31 [facility] Comment on above: Performed By: #### S URGP #### [facility] (DEFAULT) [address] [place] [address]57 Creatinine [Mass/Vol] 1.35 mg/dL High 0.50-1.20 [facility] Comment on above: Performed By: #### S URGP #### [facility] (DEFAULT) [address] [place] [address]342 GFR/1.73 sq M.predicted among non-blacks MDRD (S/P/Bld) [Vol rate/Area] 40 mL/min/{1.73_m2} Low >=60 [facility] Comment on above: Result Comment: Repo rted eGFR is based on the CKD-EPI 2020 equation using creatinine, age, and sex. Performed By: #### S URGP #### [facility] (DEFAULT) [address] [place] [address]11 Glucose [Mass/Vol] 151 mg/dL Normal Nonfastin -179 mg/dL; Fastin-99 [facility] Comment on above: Performed By: #### S URGP #### [facility] (DEFAULT) [address] [place] [address] 34293 Osmolality [Osmolality] 295 mosm/kg Normal 278-305 [facility] Comment on above: Performed By: #### S URGP #### [facility] (DEFAULT) [address] [place] [address] 23793 Potassium [Moles/Vol] 4.3 mmol/L Normal 3.5-5.0 [facility] Comment on above: Result Comment: Spec imen slightly hemolyzed. Potassium results may be falsey elevated by more than 0.5 mmol/L. Consider recollection. Performed By: #### S URGP #### [facility] (DEFAULT) [address] [place] [address] 31826 Sodium [Moles/Vol] 138 mmol/L Normal 135-145 [facility] Comment on above: Performed By: #### S URGP #### [facility] (DEFAULT) [address] [place] [address] 39911 Urea nitrogen [Mass/Vol] 18 mg/dL Normal 7-25 [facility] Comment on above: Performed By: #### S URGP #### [facility] (DEFAULT) [address] [place] [address] 42346 Urea nitrogen/Creatinine [Mass ratio] 13 mg/mg Normal [facility] Comment on above: Performed By: #### S URGP #### [facility] (DEFAULT) [address] [place] [address] CHEST WITH CONTRAST VASCU LAR TRAUMAon [...] have reviewed and approved this report. Normal [facility] CT Cervical spine WO contras ton 08-03-2024 RADIOLOGY RADIOLOGY [facility] CT Cervical spine WO contras tOrdered By: Alissa Chun on 08-03-2024 [facility] Work Phone: CT Chest W contrast Seth RADIOLOGY RADIOLOGY [facility] CT Chest W contrast IVOrdere d By: Kayla Newell on 08-03-2024 [facility] Work Phone: CT HEAD WITHOUT CONTRASTon [...] since the MRI from earlier today Normal [facility] CT Head WO contraston 2024 Radiology Study observation (narrative) [facility] RADIOLOGY RADIOLOGY [facility] Radiology Study observation (narrative) [facility] CT ORBITS WITHOUT CONTRASTon 08-03-2024 CT ORBITS [...] basal ganglia hyperdensity concerning for hemorrhage. Normal [facility] CT Orbit WO contraston 08-03 RADIOLOGY RADIOLOGY [facility] CT SPINE CERVICAL WITHOUT CO NTRASTon [...] No evidence of acute fractures identified Normal [facility] EXTRA MICROon 08-03-2024 [facility] GLUCOSE POCon 08-03-2024 Glucose [Mass/Vol] 161 mg/dL 70 - 179 mg/dL [facility] POC Sample Type [facility] IONIZED CALCIUM, WHOLE BLOOD Ordered By: Alejandra Ness on 08-03-2024 Calcium.ionized (Bld) [Moles/Vol] 4.24 mg/dL Low 4.60 - 5.30 mg/dL [facility] Interpretation and review of laboratory results Abnormal [facility] IONIZED CALCIUM, WHOLE BLOOD on 08-03-2024 ICA 4.24 mg/dL Low 4.60-5.30 [facility] Comment on above: Performed By: #### H EMOGC #### [facility] (DEFAULT) [address] [place] [address] MAGNESIUMon 08-03-2024 Magnesium [Mass/Vol] 2.1 mg/dL 1.6 - 2 .6 mg/dL [facility] Magnesium [Mass/Vol] 2.1 mg/dL Normal 1.6-2.6 [facility] Comment on above: Performed By: #### S URGP #### [facility] (DEFAULT) [address] [place] [address]682 MR Brain WO contraston 08-03 RADIOLOGY RADIOLOGY [facility] Radiology Study observation (narrative) [facility] MR Cervical spine WO contras ton 08-03-2024 RADIOLOGY RADIOLOGY [facility] Radiology Study observation (narrative) [facility] MR Cervical spine WO contras tOrdered By: Kuldeep Tavares on 08-03-2024 [facility] Work Phone: MRI BRAIN WITHOUT CONTRASTon [...] tiny 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 Normal [facility] MRI SPINE CERVICAL WITHOUT C ONTRASTon [...] have reviewed and approved this report. Normal [facility] NT-PRO B-TYPE NATRIURETIC PE PTIDEon 08-03-2024 Interpretation and review of laboratory results Abnormal [facility] Natriuretic peptide.B prohormone N-Terminal [place] [Mass/Vol] 1115 pg/mL High NINF - 540 pg/mL [facility] No Panel Informationon 08-03 RADIOLOGY RADIOLOGY [facility] Interpretation and review of laboratory results Normal [facility] No Panel InformationOrdered By: Richard Sánchez on 08-03-2024 [facility] Work Phone: PHOSPHATE, INORGANICon 08-03 Phosphate [Mass/Vol] 3.5 mg/dL 2.2 - 4 .6 mg/dL [facility] Phosphorous 3.5 mg/dL Normal 2.2-4.6 [facility] Comment on above: Performed By: #### S URGP #### [facility] (DEFAULT) [address] [place] [address] SCREEN: MRSA/MSSAOrdered By: Gail Collado on 08-03-2024 Interpretation and review of laboratory results Normal [facility] Methicillin Resistant S. Aureus By Pcr Negative Negative [facility] Staphylococcus Aureus By Pcr Negative Negative [facility] SODIUMon 08-03-2024 Interpretation and review of laboratory results Normal [facility] Sodium [Moles/Vol] 139 mmol/L 135 - 145 mmol/L [facility] Sodium [Moles/Vol] 139 mmol/L Normal 135-145 [facility] Comment on above: Order Comment: While on 3% Hypertonic Saline. Performed By: #### N AO ####[facility] (DEFAULT)[address] [place] [address] Interpretation and review of laboratory results Abnormal [facility] Sodium [Moles/Vol] 134 mmol/L Low 135 - 145 mmol[facility]L [facility] S[facility] [Moles/Vol] 134 mmol/L Low 135-145 [facility] Comment on above: Order Comment: While on 3% Hypertonic Saline. Performed By: #### [facility] #### [facility] (DEFAULT) [address] [place], [place] [address] XR ABDOMEN 1 VIEW PORTABLEon 08-03-2024 XR [...] proximal second portion of the duodenum. Normal [facility] XR Abdomen Single viewon RADIOLOGY RADIOLOGY [facility] Radiology Study observation (narrative) [facility] XR Abdomen Single viewOrdere d By: Huey Gibson on 08-03-2024 [facility] XR ELBOW RIGHT 2 VIEWSon XR ELBOW RIGHT 2 VIEWS EXAM: XR ELBOW RI GHT 2 VIEWS, XR HUMERUS RIGHT 2+ VIEWS, XR WRIST RIGHT 3+ VIEWS, 08/02/2024 23:24 PM (accession [id number]), 08/02/2024 23:24 PM (accession [id number]), 08/02/2024 23:23 PM (accession [id number]) COMPARISON: No prior studies available for comparison. [...] dislocation. IMPRESSION: No acute osseous abnormality. Normal [facility] XR HUMERUS RIGHT 2+ VIEWSon 08-03-2024 XR HUMERUS RIGHT 2+ VIEWS EXAM: XR ELBOW RIGHT 2 VIEWS, XR HUMERUS RIGHT 2+ VIEWS, XR WRIST RIGHT 3+ VIEWS, 08/02/2024 23:24 PM (accession [id number]), 08/02/2024 23:24 PM (accession [id number]), 08/02/2024 23:23 PM (accession [id number]) COMPARISON: No prior studies available for comparison. [...] dislocation. IMPRESSION: No acute osseous abnormality. Normal [facility] XR WRIST RIGHT 3+ VIEWSon XR WRIST RIGHT 3+ VIEWS EXAM: XR ELBOW R IGHT 2 VIEWS, XR HUMERUS RIGHT 2+ VIEWS, XR WRIST RIGHT 3+ VIEWS, 08/02/2024 23:24 PM (accession [id number]), 08/02/2024 23:24 PM (accession [id number]), 08/02/2024 23:23 PM (accession [id number]) COMPARISON: No prior studies available for comparison. [...] dislocation. IMPRESSION: No acute osseous abnormality. Normal [facility] 12 Lead EKGon 08-02-2024 12 Lead EKG [facility] [address] [place] [address] 12 Lead EKG 08/02/24 1309 MR#: [id number] Acct: [id number] Name: LINDSAY ACUNA Rep #: [id number] : 1945 78 From: Mj Benavides MD [...] ECG Confirmed by MAKAYLA LAWSON, MJ ([id number]), story editor NAIMA BEARDEN ([id number]) on 08/05/2024 6:47:07 AM Referred By: Confirmed By: MJ BENAVIDES MD 08/05/24 0647 Date Mj Benavides MD CC: Dr. Pieter Morgan MD; Dr. Kameron Caruso MD Signed Normal [facility] Absolute lymphocyte countOrd ered By: Pieter Morgan on 08-02-2024 Lymphocytes Auto (Unsp spec) [#/Vol] 1.56 10*3/uL 0.83-4.51 [facility] Absolute neutrophil countOrd ered By: Pieter Morgan on 08-02-2024 Neutrophils (Bld) [#/Vol] 6.2 10*3/uL 2.0-7.7 [facility] Activated partial thrombopla stin time (aPTT) in platelet poor plasma by coagulation aOrdered By: Pieter Morgan on 08-02-2024 aPTT Coag (PPP) [Time] 28.4 s 24.1-36.2 [facility] Anion gap in Serum or Plasma Ordered By: Pieter Morgan on 08-02-2024 Anion gap [Moles/Vol] 12 mmol/L 5-15 [facility] Automated lymphocyte count a s percentage of total leukocytesOrdered By: Pieter Morgan on 08-02-2024 Lymphocytes/100 WBC Auto (Unsp spec) 17.9 % Low 19-41 [facility] BUN/creatinine ratioOrdered By: Pieter Morgan on 08-02-2024 Urea nitrogen/Creatinine [Mass ratio] 11.6 mg/mg - [facility] Basic Metabolic Profile (BMP )on 08-02-2024 BUN/CRE 11.6 RATIO Normal 03-03 [facility] Comment on above: Performed By: #### L 300.4310, L501.4021, L300.3900, L500.2500, L100.0100 #### [facility] [address] [place], [address] Calcium [Mass/Vol] 9.0 mg/dL Normal 7.6-11.0 [facility] Comment on above: Performed By: #### L 300.4310, L501.4021, L300.3900, L500.2500, L100.0100 #### [facility] [address] [place], [address] Chloride [Moles/Vol] 98 mmol/L Normal 98-[address] [facility] Comment on above: Performed By: #### L 300.4310, L501.4021, L300.3900, L500.2500, L100.0100 #### [facility] [address] [place], [address] CO2 [Moles/Vol] 22.0 mmol/L Normal 21.0-32.0 [facility] Comment on above: Performed By: #### L 300.4310, L501.4021, L300.3900, L500.2500, L100.0100 #### [facility] [address] [place], [address] Creatinine [Mass/Vol] 1.74 mg/dL High 0.70-1.20 [facility] Comment on above: Performed By: #### L 300.4310, L501.4021, L300.3900, L500.2500, L100.0100 #### [facility] [address] [place], [address] ECRCL 27.14 ml/min Low 50-250 [facility] Comment on above: Performed By: #### L 300.4310, L501.4021, L300.3900, L500.2500, L100.0100 #### [facility] [address] [place], [address] GAP 12 Normal 5-15 [facility] Comment on above: Performed By: #### L 300.4310, L501.4021, L300.3900, L500.2500, L100.0100 #### [facility] [address] [place], [address] GFR/1.73 sq M.predicted among non-blacks MDRD (S/P/Bld) [Vol rate/Area] 29 mL/min/{1.73_m2} Low >60 [facility] Comment on above: Result Comment: mL/m in/1.73m2 CKD-EPI Creatinine Equation (2020) Performed By: #### L 300.4310, L501.4021, L300.3900, L500.2500, L100.0100 #### [facility] [address] [place], [address] Glucose [Mass/Vol] 235 mg/dL High 70-99 [facility] Comment on above: Performed By: #### L 300.4310, L501.4021, L300.3900, L500.2500, L100.0100 #### [facility] [address] [place], [address] Potassium [Moles/Vol] 4.2 mmol/L Normal 3.3-5.1 [facility] Comment on above: Performed By: #### L 300.4310, L501.4021, L300.3900, L500.2500, L100.0100 #### [facility] [address] [place], [address] Sodium [Moles/Vol] 132 mmol/L Low 133-145 [facility] Comment on above: Performed By: #### L 300.4310, L501.4021, L300.3900, L500.2500, L100.0100 #### [facility] [address] [place], [address] Urea nitrogen [Mass/Vol] 20 mg/dL High 4-19 [facility] Comment on above: Performed By: #### L 300.4310, L501.4021, L300.3900, L500.2500, L100.0100 #### [facility] [address] [place], [address] Basophil percentageOrdered B y: Pieter Morgan on 08-02-2024 Basophils/100 WBC (Bld) 0.5 % 0-1 [facility] CBC W/Diff, Automatedon 07-14 Absolute Lymph 1.56 X10 3/uL Normal 0.83-4.51 [facility] Comment on above: Performed By: #### L 300.4310, L501.4021, L300.3900, L500.2500, L100.0100 #### [facility] [address] [place], [address] Absolute Neut 6.2 X10 3/uL Normal 2.0-7.7 [facility] Comment on above: Performed By: #### L 300.4310, L501.4021, L300.3900, L500.2500, L100.0100 #### [facility] [address] [place], [address] Basophils/100 WBC (Bld) 0.5 % Normal 0-1 [facility] Comment on above: Performed By: #### L 300.4310, L501.4021, L300.3900, L500.2500, L100.0100 #### [facility] [address] [place], [address] Eosinophils/100 WBC (Bld) 1.0 % Normal 0-5 [facility] Comment on above: Performed By: #### L 300.4310, L501.4021, L300.3900, L500.2500, L100.0100 #### [facility] [address] [place], [address] Erythrocyte distribution width (RBC) [Ratio] 13.3 % Normal 11.6-14.6 [facility] Comment on above: Performed By: #### L 300.4310, L501.4021, L300.3900, L500.2500, L100.0100 #### [facility] [address] [place], [address] Hematocrit (Bld) [Volume fraction] 42.0 % Normal 37-47 [facility] Comment on above: Performed By: #### L 300.4310, L501.4021, L300.3900, L500.2500, L100.0100 #### [facility] [address] [place], [address] Hemoglobin (Bld) [Mass/Vol] 13.8 g/dL Normal 12.0-15.0 [facility] Comment on above: Performed By: #### L 300.4310, L501.4021, L300.3900, L500.2500, L100.0100 #### [facility] [address] [place], [address] IG% 0.300 Normal 0.0-0.9 [facility] Comment on above: Result Comment: IG% - Immature Granulocytes (promyelocytes, myelocytes and metamyelocytes) > 1% indicates that a LEFT SHIFT is Present. Performed By: #### L 300.4310, L501.4021, L300.3900, L500.2500, L100.0100 #### [facility] [address] [place], [address] Lymphocytes/100 WBC (Bld) 17.9 % Low 19-41 [facility] Comment on above: Performed By: #### L 300.4310, L501.4021, L300.3900, L500.2500, L100.0100 #### [facility] [address] [place], [address] MCH (RBC) [Entitic mass] 30.3 pg Normal 27.0-32.0 [facility] Comment on above: Performed By: #### L 300.4310, L501.4021, L300.3900, L500.2500, L100.0100 #### [facility] [address] [place], [address] MCHC (RBC) [Mass/Vol] 32.9 g/dL Normal 32-36 [facility] Comment on above: Performed By: #### L 300.4310, L501.4021, L300.3900, L500.2500, L100.0100 #### [facility] [address] [place], [address] MCV (RBC) [Entitic vol] 92.1 fL Normal 81-99 [facility] Comment on above: Performed By: #### L 300.4310, L501.4021, L300.3900, L500.2500, L100.0100 #### [facility] [address] [place], [address] Monocytes/100 WBC (Bld) 8.9 % Normal 0-10 [facility] Comment on above: Performed By: #### L 300.4310, L501.4021, L300.3900, L500.2500, L100.0100 #### [facility] [address] [place], [address] Neutrophils/100 WBC (Bld) 71.4 % High 47-70 [facility] Comment on above: Performed By: #### L 300.4310, L501.4021, L300.3900, L500.2500, L100.0100 #### [facility] [address] [place], [address] Nucleated RBC (Bld) [#/Vol] 0 10*3/uL Normal 0-5 [facility] Comment on above: Performed By: #### L 300.4310, L501.4021, L300.3900, L500.2500, L100.0100 #### [facility] [address] [place], [address] Platelet mean volume (Bld) [Entitic vol] 10.7 fL Normal 6.2-12.0 [facility] Comment on above: Performed By: #### L 300.4310, L501.4021, L300.3900, L500.2500, L100.0100 #### [facility] [address] [place], [address] Platelets (Bld) [#/Vol] 214 10*3/uL Normal 150-450 [facility] Comment on above: Performed By: #### L 300.4310, L501.4021, L300.3900, L500.2500, L100.0100 #### [facility] [address] [place], [address] RBC (Bld) [#/Vol] 4.56 10*6/uL Normal 4.2-5.4 [facility] Comment on above: Performed By: #### L 300.4310, L501.4021, L300.3900, L500.2500, L100.0100 #### [facility] [address] [place], [address] RDW SD 45.3 fl High 35.1-43.9 [facility] Comment on above: Performed By: #### L 300.4310, L501.4021, L300.3900, L500.2500, L100.0100 #### [facility] [address] [place], [address] WBC (Bld) [#/Vol] 8.7 10*3/uL Normal 4.4-11.0 [facility] Comment on above: Performed By: #### L 300.4310, L501.4021, L300.3900, L500.2500, L100.0100 #### [facility] [address] [place], [address] CBC,PLATELETSon 08-02-2024 Erythrocyte distribution width (RBC) [Ratio] 13.3 % 10.8 - 14.9 % [facility] Hematocrit (Bld) [Volume fraction] 43.8 % 34.9 - 44.3 % [facility] Hemoglobin (Bld) [Mass/Vol] 14 g/dL 11.4 - 15.2 g/dL [facility] Interpretation and review of laboratory results Normal [facility] MCH (RBC) [Entitic mass] 29.4 pg 25.9 - 33.9 pg [facility] MCHC (RBC) [Mass/Vol] 32 g/dL 31.4 - 35.9 g/dL [facility] MCV (RBC) [Entitic vol] 92 fL 79.6 - 97.7 fL [facility] Platelet mean volume (Bld) [Entitic vol] 10.8 fL 8.5 - 12.2 fL [facility] Platelets (Bld) [#/Vol] 245 10*3/uL 150 - 393 K/uL [facility] RBC (Bld) [#/Vol] 4.76 10*6/uL [facility] WBC (Bld) [#/Vol] 8.16 10*3/uL 3.99 - 11.19 K/uL [facility] Hematocrit (Bld) [Volume fraction] 43.8 % Normal 34.9-44.3 [facility] Comment on above: Performed By: #### B LDCULT #### [facility] (DEFAULT) [address] [address] Hemoglobin (Bld) [Mass/Vol] 14.0 g/dL Normal 11.4-15.2 [facility] Comment on above: Performed By: #### B LDCULT #### [facility] (DEFAULT) [address] [address] MCV (RBC) [Entitic vol] 92.0 fL Normal 79.6-97.7 [facility] Comment on above: Performed By: #### B LDCULT #### [facility] (DEFAULT) [address] [place] [address] Mean Cell Hgb 29.4 pg Normal 25.9-33.9 [facility] Comment on above: Performed By: #### B LDCULT #### [facility] (DEFAULT) [address] [place] [address] Mean Cell Hgb Conc 32.0 g/dL Normal 31.4-35.9 [facility] Comment on above: Performed By: #### B LDCULT #### [facility] (DEFAULT) [address] [place] [address] Platelet mean volume (Bld) [Entitic vol] 10.8 fL Normal 8.5-12.2 [facility] Comment on above: Performed By: #### B LDCULT #### [facility] (DEFAULT) [address] [place] [address] Platelets (Bld) [#/Vol] 245 10*3/uL Normal 150-393 [facility] Comment on above: Performed By: #### B LDCULT #### [facility] (DEFAULT) [address] [place] [address] RBC (Bld) [#/Vol] 4.76 10*6/uL Normal 3.91-5.04 [facility] Comment on above: Performed By: #### B LDCULT #### [facility] (DEFAULT) [address] [place] [address]10 RBC Distribution 13.3 % Normal 10.8-14.9 [facility] Comment on above: Performed By: #### B LDCULT #### [facility] (DEFAULT) [address] [place] [address] WBC (Bld) [#/Vol] 8.16 10*3/uL Normal 3.99-11.19 [facility] Comment on above: Performed By: #### B LDCULT #### [facility] (DEFAULT) [address] [place] [address] CHEM 7 (LYTES,BUN,CREA,GLUC) on 08-02-2024 Anion gap [Moles/Vol] 16 mmol/L 7 - 17 mmol/L [facility] Chloride [Moles/Vol] 105 mmol/L 98 - 10 8 mmol/L [facility] CO2 [Moles/Vol] 22 mmol/L 21 - 31 mmol/L [facility] Creatinine [Mass/Vol] 1.37 mg/dL High 0.50 - 1.20 mg/dL [facility] eGFR, CKD-EPI, Female 39 Low - PINF [facility] Glucose [Mass/Vol] 210 mg/dL High 70 - 179 mg/dL [facility] Osmolality Calc [[facility]smolality] [facility] Pot[facility] [Moles/Vol] 3.7 mmol/L 3.5 - 5.0 mmol/L [facility] Sodium [Moles/Vol] 139 mmol/L 135 - 145 mmol/L [facility] Urea nitrogen [Mass/Vol] 18 mg/dL 7 - 25 mg/dL [facility] Urea nitrogen/Creatinine [Mass ratio] 13 mg/mg [facility] Anion gap [Moles/Vol] 16 mmol/L Normal 7-17 [facility] Comment on above: Performed By: #### [facility] #### [facility] (DEFAULT) [address] [address] Chloride [Moles/Vol] 105 mmol/L Normal 98-108 [facility] Comment on above: Performed By: #### [facility] #### [facility] (DEFAULT) [address] [address] CO2 [Moles/Vol] 22 mmol/L Normal 21-31 [facility] Comment on above: Performed By: #### [facility] #### [facility] (DEFAULT) [address] [place] [address] Creatinine [Mass/Vol] 1.37 mg/dL High 0.50-1.20 [facility] Comment on above: Performed By: #### [facility] #### [facility] (DEFAULT) [address] [place] [address] GFR/1.73 sq M.predicted among non-blacks MDRD (S/P/Bld) [Vol rate/Area] 39 mL/min/{1.73_m2} Low >=60 [facility] Comment on above: Result Comment: Repo rted eGFR is based on the CKD-EPI 2020 equation using creatinine, age, and sex. Performed By: #### [facility] #### [facility] (DEFAULT) [address] [place] [address]52 Glucose [Mass/Vol] 210 mg/dL High Nonfastin -179 mg/dL; Fastin-99 [facility] Comment on above: Performed By: #### [facility] #### [facility] (DEFAULT) [address] [place] [address] Osmolality [Osmolality] 299 mosm/kg Normal 278-305 [facility] Comment on above: Performed By: #### H EMOGC #### [facility] (DEFAULT) [address] [place] [address] Potassium [Moles/Vol] 3.7 mmol/L Normal 3.5-5.0 [facility] Comment on above: Performed By: #### H EMOGC #### [facility] (DEFAULT) [address] [place] [address]59 Sodium [Moles/Vol] 139 mmol/L Normal 135-145 [facility] Comment on above: Performed By: #### H EMOGC #### [facility] (DEFAULT) [address] [place] [address] 86707 Urea nitrogen [Mass/Vol] 18 mg/dL Normal 7-25 [facility] Comment on above: Performed By: #### H EMOGC #### [facility] (DEFAULT) [address] [place] [address] 61554 Urea nitrogen/Creatinine [Mass ratio] 13 mg/mg Normal [facility] Comment on above: Performed By: #### H EMOGC #### [facility] (DEFAULT) [address] [place] [address] ABDOMEN/PELVIS WITH CONTR AST VASCULAR TRAUMAon [...] grade: None. Kidney trauma grade: None. Normal [facility] CT Abdomen and Pelvis W cont rast Seth 08-02-2024 RADIOLOGY RADIOLOGY [facility] CT Abdomen and Pelvis W cont rast IVOrdered By: Edson Head on 08-02-2024 [facility] Work Phone: CT Cervical spine WO contras ton 08-02-2024 Radiology Study observation (narrative) [facility] CT Orbit WO contraston 08-02 Radiology Study observation (narrative) [facility] Carbon dioxide, total [Moles /volume] in Central venous bloodOrdered By: Pieter Morgan on 08-02-2024 CO2 [Moles/Vol] 22.0 mmol/L 21.0-32.0 [facility] Chloride assayOrdered By: Racheal Morgan on 08-02-2024 Chloride [Moles/Vol] 98 mmol/L 98-[address] [facility] Emergency Department Summary on 08-02-2024 Emergency Department Summary [facility] Medical Records Department [address] [place] [address] Emergency Department Summary 08/02/24 MR#: [id number] Acct: [id number] Name: LINDSAY ACUNA Rep #: [id number] : 1945 78 From: Pieter Morgan MD [...] the EMR. states they returned home from [facility] about 1.5-2 weeks ago, and they both had colds. He is better, but she is "on round 2." [facility] Medical History Paroxysmal atrial fibrillation with RVR [...] normal respir (more content not included)... Normal [facility] Eosinophil percentageOrdered By: Pieter Morgan on 08-02-2024 Eosinophils/100 WBC (Bld) 1.0 % 0-5 [facility] Erythrocyte distribution wid th ratioOrdered By: Pieter Morgan on 08-02-2024 Erythrocyte distribution width (RBC) [Ratio] 13.3 % 11.6-14.6 [facility] Erythrocyte distribution wid th standard deviationOrdered By: Pieter Morgan on 08-02-2024 Erythrocyte distribution width (RBC) [Entitic vol] 45.3 fL High 35.1-43.9 [facility] Erythrocyte distribution width (RBC) [Ratio] 45.3 fl High 35.1-43.9 [facility] Estimation of creatinine mackenzie aranceOrdered By: Pieter Morgan on 08-02-2024 Estimated Creatinine Clearance Calc 27.14 ml/min Low 50-250 [facility] GFR/1.73 sq M.predicted lana g non-blacks MDRD (S/P/Bld) [Vol rate/Area]Ordered By: Pieter Morgan on 08-02-2024 Estimated GFR (MDRD) Non-Af Amer 29 Low >60 [facility] Comment on above: mL/min/1.73m2 CKD-EP I Creatinine Equation (2020) Glomerular filtration rate ( GFR) estimation/1.73 sq m using serum, plasma, or whole bOrdered By: Pieter Morgan on 08-02-2024 GFR/1.73 sq M.predicted among non-blacks MDRD (S/P/Bld) [Vol rate/Area] 29 mL/min/{1.73_m2} Low >60 [facility] Comment on above: mL/min/1.73m2 CKD-EP I Creatinine Equation (2020) HEMOGLOBIN A1Con 08-02-2024 Average glucose Estimated from glycated hemoglobin (Bld) [Mass/Vol] 177 mg/dL [facility] HbA1c (Bld) [Mass fraction] 7.8 % High 4.7 - 5.6 % [facility] Interpretation and review of laboratory results Abnormal [facility] Glucose [Mass/Vol] 177 mg/dL Normal [facility] Comment on above: Performed By: #### [facility] #### [facility] (DEFAULT) [address] [place] [address] Hemoglobin A1C HPLC 7.8 % High 4.7-5.6 [facility] Comment on above: Performed By: #### [facility] #### [facility] (DEFAULT) [address] [address] HEPATIC FUNCTION PANELon Albumin [Mass/Vol] 3.5 g/dL 3.5 - 5.0 g/dL [facility] ALP [Catalytic activity/Vol] 117 U/L 32 - 126 U/L [facility] ALT [Catalytic activity/Vol] 10 U/L 9 - 48 U/L [facility] AST [Catalytic activity/Vol] 17 U/L 10 - 39 U/L [facility] Bilirubin [Mass/Vol] 0.6 mg/dL [facility] mg/dL [facility] Bilirubin.direct [Mass/Vol] 0.1 mg/dL NINF - 0.3 mg/dL [facility] Protein [Mass/Vol] 6.3 g/dL Low 6.4 - 8.3 g/dL [facility] Albumin [Mass/Vol] 3.5 g/dL Normal 3.5-5.0 [facility] Comment on above: Performed By: #### [facility] #### [facility] (DEFAULT) [address] [address] ALP [Catalytic activity/Vol] 117 U/L Normal 32-126 [facility] Comment on above: Performed By: #### H EMOGC #### [facility] (DEFAULT) [address] [place] [address] 90149 ALT [Catalytic activity/Vol] 10 U/L Normal 9-48 [facility] Comment on above: Performed By: #### H EMOGC #### [facility] (DEFAULT) [address] [place] [address] 58404 AST [Catalytic activity/Vol] 17 U/L Normal 10-39 [facility] Comment on above: Performed By: #### H EMOGC #### [facility] (DEFAULT) [address] [place] [address]7079 Bilirubin [Mass/Vol] 0.6 mg/dL Normal <1.5 [facility] Comment on above: Performed By: #### H EMOGC #### [facility] (DEFAULT) [address] [place] [address] 48447 Bilirubin.indirect [Mass/Vol] 0.1 mg/dL Normal <0.3 [facility] Comment on above: Performed By: #### H EMOGC #### [facility] (DEFAULT) [address] [place] [address] 28562 Protein [Mass/Vol] 6.3 g/dL Low 6.4-8.3 [facility] Comment on above: Performed By: #### H EMOGC #### [facility] (DEFAULT) [address] [place] [address]992 HIGH SENSITIVITY TROPONIN I - SINGLE ORDERon 08-02-2024 Interpretation and review of laboratory results Normal [facility] Troponin I.cardiac High sensitivity method [Mass/Vol] 9 ng/L NINF - 34 ng/L [facility] hs-Troponin I 9 ng/L Normal <34 [facility] Comment on above: Order Comment: 2 [...] Performed By: #### B LDCULT #### [facility] (DEFAULT) [address] [place] [address]67 Hematocrit Auto (Bld) [Volum e fraction]Ordered By: Pieter Morgan on 08-02-2024 Hematocrit (Bld) [Volume fraction] 42.0 % 37-47 [facility] Hemoglobin measurementOrdere d By: [place] Cathy on 08-02-2024 Hemoglobin (Bld) [Mass/Vol] 13.8 g/dL 12.0-15.0 [facility] Immature granulocytes/100 WB C Auto (Bld)Ordered By: Pieterdanielle Morgan on 08-02-2024 Immature granulocytes/100 WBC (Bld) 0.300 % 0.0-0.9 [facility] Comment on above: IG% - Immature Granu locytes (promyelocytes, myelocytes and metamyelocytes) > 1% indicates that a LEFT SHIFT is Present. Influenza virus A and B and SARS-CoV-2 (COVID-19) and Respiratory syncytial virus RNAOrdered By: Pieter Morgan on 08-02-2024 SARS-CoV-2 (COVID-19) RNA CHUCKY+probe Ql (Unsp spec) [facility] International normalized rat io (INR) calculationOrdered By: Pieterdanielle Morgan on 08-02-2024 INR Coag (Bld) [Relative time] 1.1 {INR} [facility] L499.0042on 08-02-2024 Trop T High Sen Normal <=14 [facility] Comment on above: Result Comment: Canc elled via OM: Order cancelled - Patient discharged Performed By: #### L 499.0042 ####[facility] [address] [place], [address] L499.0043on 08-02-2024 Trop T High Sen Normal <=14 [facility] Comment on above: Result Comment: Canc elled via OM: Order cancelled - Patient discharged Performed By: #### L 499.0043 ####[facility] [address] [place], [address] L501.4021on 08-02-2024 Trop T High Sen 38 ng/L High <=14 [facility] Comment on above: Performed By: #### L 300.4310, L501.4021, L300.3900, L500.2500, L100.0100 ####[facility] [address] [place], [address] LIPID PANEL WITH REFLEX TO M EASURED LDLon 08-02-2024 Cholesterol [Mass/Vol] 141 mg/dL NINF - 200 mg/dL [facility] Cholesterol in HDL [Mass/Vol] 38 mg/dL Low 40 - PINF mg/dL [facility] Cholesterol in LDL [Mass/Vol] 84 mg/dL 0 - 99 mg/dL [facility] Cholesterol non HDL [Mass/Vol] 103 mg/dL NINF - 130 mg/dL [facility] Cholesterol.total/Alta sterol in HDL [Mass ratio] 3.7 {ratio} NINF - 4.5 [facility] Triglyceride [Mass/Vol] 96 mg/dL NINF - 150 mg/dL [facility] Calculated LDL Cholesterol 84 mg/dL Normal 0-99 [facility] Comment on above: Result Comment: [<10 0 mg/dL: Optimal] [100-129 mg/dL: Near Optimal] [130-159 mg/dL: Borderline High] [160-189 mg/dL: High] [>189 mg/dL: Very High] Performed By: #### [facility] #### [facility] (DEFAULT) [address] [place] [address] Cholesterol [Mass/Vol] 141 mg/dL Normal <200 [facility] Comment on above: Result Comment: [<20 0 mg/dL: Desirable] [200-239 mg/dL: Borderline High] [>239 mg/dL: High] Performed By: #### [facility] #### [facility] (DEFAULT) [address] [place] [address]562 Cholesterol in HDL [Mass/Vol] 38 mg/dL Low >=40 [facility] Comment on above: Result Comment: [<40 mg/dL: Low (High Risk)] [>59 mg/dL: High (Low Risk)] Performed By: #### H EMO #### [facility] (DEFAULT) [address] [place] [address] 18047 Non HDL Cholesterol 103 mg/dL Normal <130 [facility] Comment on above: Performed By: #### H EMOGC #### [facility] (DEFAULT) [address] [place] [address] 27053 Total Cholesterol/HDL Ratio 3.7 Normal <4.5 [facility] Comment on above: Performed By: #### H EMO #### [facility] (DEFAULT) [address] [place] [address] 8[address]80 Triglyceride [Mass/Vol] 96 mg/dL Normal <150 [facility] Comment on above: Result Comment: [<15 0 mg/dL: Desirable] [150-199 mg/dL: Borderline] [200-499 mg/dL: High] [>500 mg/dL: Very High] Performed By: #### H EMOGC #### [facility] (DEFAULT) [address] [place] [address]58 Lymphocytes Auto (Unsp spec) [#/Vol]Ordered By: Pieter Morgan on 08-02-2024 Lymphocytes (Bld) [#/Vol] 1.56 10*3/uL 0.83-4.51 [facility] Lymphocytes/100 WBC Auto (Un sp spec)Ordered By: Pieter Morgan on 08-02-2024 Lymphocytes/100 WBC (Bld) 17.9 % Low 19-41 [facility] M100.678on 08-02-2024 M100.678 Pending SARS-CoV-2 (COVID 19) Negative INFLUENZA A Negative INFLUENZA B Negative RSV PCR Negative Normal [facility] Comment on above: Performed By: #### M 100.678 #### [facility] [address] [place], [address] MAGNESIUMon 08-02-2024 Magnesium [Mass/Vol] 1.2 mg/dL Low 1.6 - 2 .6 mg/dL [facility] Magnesium [Mass/Vol] 1.2 mg/dL Low 1.6-2.6 [facility] Comment on above: Performed By: #### [facility] #### [facility] (DEFAULT) [address] [place] [address] MCV (mean corpuscular volume ) determinationOrdered By: Pieter Morgan on 08-02-2024 MCV (RBC) [Entitic vol] 92.1 fL 81-99 [facility] Mean corpuscular hemoglobin (MCH) determinationOrdered By: Pieter Cathy on 08-02-2024 MCH (RBC) [Entitic mass] 30.3 pg 27.0-32.0 [facility] Mean corpuscular hemoglobin concentration (MCHC) determinationOrdered By: Pieter Morgan on 08-02-2024 MCHC (RBC) [Mass/Vol] 32.9 g/dL 32-36 [facility] Mean platelet volume determi nationOrdered By: Pieter Morgan on 08-02-2024 Platelet mean volume (Bld) [Entitic vol] 10.7 fL 6.2-12.0 [facility] Monocyte percentageOrdered B y: Pieter Morgan on 08-02-2024 Monocytes/100 WBC (Bld) 8.9 % 0-10 [facility] NT-PRO B-TYPE NATRIURETIC PE PTIDEon 08-02-2024 Natriuretic peptide B (Bld) [Mass/Vol] 1115 pg/mL High <=540 [facility] Comment on above: Performed By: #### [facility] #### [facility] (DEFAULT) [address] [place] [address] Neutrophil percentageOrdered By: Pieter Morgan on 08-02-2024 Neutrophils/100 WBC (Bld) 71.4 % High 47-70 [facility] No Panel Informationon 08-02 Radiology Study observation (narrative) [facility] Interpretation and review of laboratory results Abnormal [facility] No Panel InformationOrdered By: Pieter Morgan on 08-02-2024 Troponin T High Sensitivity 38 ng/L High <14 [facility] Nucleated red blood cell per centageOrdered By: Pieter Morgan on 08-02-2024 Nucleated RBC/100 WBC (Bld) [Ratio] 0 % 0-5 [facility] PT,INR,PTTon 08-02-2024 aPTT Coag (PPP) [Time] 26.9 s [facility] INR Coag (Bld) [Relative time] 1.1 {INR} 0.9 - 1.1 [facility] Interpretation and review of laboratory results Normal [facility] PT Coag (PPP) [Time] 13.9 s [facility] aPTT Coag (Bld) [Time] 26.9 s Normal 24.0-34.3 [facility] Comment on above: Performed By: #### P TPTT ####[facility] (DEFAULT)[address] [place] [address] INR Coag (PPP) [Relative time] 1.1 {INR} Normal 0.9-1.1 [facility] Comment on above: Performed By: #### P TPTT ####[facility] (DEFAULT)[address] [place] [address] PT Coag (PPP) [Time] 13.9 s Normal 11.9-14.2 [facility] Comment on above: Performed By: #### P TPTT ####[facility] (DEFAULT)[address] [place] [address] Partial Thromboplast Timeon 08-02-2024 aPTT Coag (Bld) [Time] 28.4 s Normal 24.1-36.2 [facility] Comment on above: Performed By: #### L 300.4310, L501.4021, L300.3900, L500.2500, L100.0100 #### [facility] [address] [place], [address] Platelet countOrdered By: Racheal Morgan on 08-02-2024 Platelets (Bld) [#/Vol] 214 10*3/uL 150-450 [facility] Potassium (Unsp spec) [Mass/ Vol]Ordered By: Pieter Morgan on 08-02-2024 Potassium [Moles/Vol] 4.2 mmol/L 3.3-5.1 [facility] Potassium measurement (mass/ volume)Ordered By: Pieter Morgan on 08-02-2024 Potassium (Unsp spec) [Mass/Vol] 4.2 mmol/L 3.3-5.1 [facility] Prothrombin Time w/INRon INR Coag (PPP) [Relative time] 1.1 {INR} Normal [facility] Comment on above: Performed By: #### L 300.4310, L501.4021, L300.3900, L500.2500, L100.0100 #### [facility] [address] [place], [address] PT Coag (PPP) [Time] 14.1 s Normal 11.7-14.[address] [facility] Comment on above: Performed By: #### L 300.4310, L501.4021, L300.3900, L500.2500, L100.0100 #### [facility] [address] [place], [address] Prothrombin timeOrdered By: Pieter Morgan on 08-02-2024 PT Coag (PPP) [Time] 14.1 s 11.7-14.[address] [facility] RBC Auto (Bld) [#/Vol]Ordere d By: Pieter Morgan on 08-02-2024 RBC (Bld) [#/Vol] 4.56 10*6/uL 4.2-5.4 [facility] SCREEN: MRSA/MSSAon 08-03-19 25 Methicillin Resistant S. Aureus By Pcr Negative Normal Negative [facility] Comment on above: Order Comment: Colle [...] by the Clinical Microbiology Laboratory at [facility]. It has not been cleared or approved by the FDA.The laboratory is regulated under CLIA as qualified to perform high-complexity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 [id number] [address] [address] [place] Cholesterol.total/Alta sterol in HDL [Mass ratio] 4.39 {ratio} Normal <5.10 [facility] Comment on above: Order Comment: Speci men Type: BLOOD SPECIMENOrdering Facility: [facility] Address: [address] [place] [address] Performed By: #### 2 4331-1, 23889-6, 3015-3 ####[facility] [id number] [place] [address] [place] FASTING TIME 12 hrs Normal [facility] Comment on above: Order Comment: Speci men Type: BLOOD SPECIMENOrdering Facility: [facility] Address: [address] [place] [address] Performed By: #### 2 4331-1, , 3 ####[facility] [id number] [place] [id number] [place] Triglyceride [Mass/Vol] 129 mg/dL Normal <150 [facility] Comment on above: Order Comment: Speci men Type: BLOOD SPECIMENOrdering Facility: [facility] Address: [address] [place] [address] Result Comment: <150 mg/dL, Normal 150-199 mg/dL, Borderline high 200-499 mg/dL, High >499 mg/dL, Very high Performed By: #### 2 4331-1, 35487-0, 6-3 ####[facility] [id number] [place] [id number] [place] TSH SerPl-aCncon 05-23-2024 TSH Qn 0.183 m[IU]/L Low 0.270-4.200 [facility] Comment on above: Order Comment: Speci men Type: BLOOD SPECIMENOrdering Facility: [facility] Address: [address] [place] [address] Performed By: #### 2 4331-1, 53074-8, 3016-3 ####[facility] [id number] [id number] [id number] [place] CNOVon 11-28-2023 CNOV Office Visit (FAMPWS ) LINDSAY ACUNA ([id number]) 1945 F Date Time Provider Department 11/28/23 9:40 AM [facility] During your visit today, we recorded the following information about you: Pulse Respiration Blood pressure Weight 68/minute 18/minute 142/78 80.6 kg Kameron Caruso MD 11/28/2023 11:45 AM Signed Chief Complaint Patient presents with: F/U 6 Month HPI Lindsay Acuna is a 78 year old female who presents here today for 6 month follow up. Pt here today for her routine follow up. Is planning on going to [place] in June. No bowel, gi, or urinary concerns. Does have some urinary leakage. Hx of tubulovillous adenoma; due for colonoscopy; will contact GI in [place] Lipid: Does not watch diet or exercise. [...] mouth daily before breakfast. blood sugar diagnostic (SmashFly ULTRA TEST) test strip Test Blood Sugar [...] Smoking stat (more content not included)... Normal [facility] Comprehensive metabolic 2000 panelon 11-27-2023 Albumin [Mass/Vol] 4.1 g/dL Normal 3.9-4.9 [facility] Comment on above: Order Comment: Speci men Type: BLOOD SPECIMENOrdering Facility: [facility] [facility] Address: [address] [place] [address] Performed By: #### 3 016-3, 59323-3, 02632-6 ####[facility] LABCLIA [id number] [place] [address] [place] ALP [Catalytic activity/Vol] 86 U/L Normal 34-123 [facility] Comment on above: Order Comment: Speci men Type: BLOOD SPECIMENOrdering Facility: [facility] Address: [address] [place] [address] Performed By: #### 3 016-3, 78129-5, 06674-3 ####[facility] LABCLIA [id number] [place] [id number] [place] ALT [Catalytic activity/Vol] 13 U/L Normal 7-38 [facility] Comment on above: Order Comment: Speci men Type: BLOOD SPECIMENOrdering Facility: [facility] Address: [address] [place] [address] Performed By: #### 3 016-3, 16337-8, 33909-9 ####[facility] LABCLIA [id number] [place] [address] [place] Anion gap [Moles/Vol] 10 mmol/L Normal 8-15 [facility] Comment on above: Order Comment: Speci men Type: BLOOD SPECIMENOrdering Facility: [facility] Address: [address] [place] [address] Performed By: #### 3 016-3, 34434-3, 59407-6 ####[facility] LABCLIA [id number] [place] [address] [place] AST [Catalytic activity/Vol] 21 U/L Normal 13-35 [facility] Comment on above: Order Comment: Speci men Type: BLOOD SPECIMENOrdering Facility: [facility] Address: [address] [place] [address] Performed By: #### 3 016-3, 44288-2, 29235-0 ####[facility] LABCLIA [id number] [place] [address] [place] Bilirubin [Mass/Vol] 0.5 mg/dL Normal 0.2-1.3 [facility] Comment on above: Order Comment: Speci men Type: BLOOD SPECIMENOrdering Facility: [facility] Address: [address] [place] [address] Performed By: #### 3 016-3, 94125-8, 87175-7 ####[facility] LABCLIA [id number] [place] [address] [place] Calcium [Mass/Vol] 9.7 mg/dL Normal 8.5-10.2 [facility] Comment on above: Order Comment: Speci men Type: BLOOD SPECIMENOrdering Facility: [facility] Address: [address] [place] [address] Performed By: #### 3 016-3, 96942-8, 99977-0 ####[facility] LABCLIA [id number] [place] [address] [place] Chloride [Moles/Vol] 108 mmol/L High 98-107 [facility] Comment on above: Order Comment: Speci men Type: BLOOD SPECIMENOrdering Facility: [facility] Address: [address] [place] [address] Performed By: #### 3 016-3, 95936-9, 82749-9 ####[facility] LABCLIA [id number] [place] [address] [place] CO2 [Moles/Vol] 23 mmol/L Normal 22-30 [facility] Comment on above: Order Comment: Speci men Type: BLOOD SPECIMENOrdering Facility: [facility] Address: [address] [place] [address] Performed By: #### 3 016-3, 43112-2, 92713-4 ####[facility] LABIA [id number] [place] [address] [place] Creatinine [Mass/Vol] 1.37 mg/dL High 0.58-0.96 [facility] Comment on above: Order Comment: Speci men Type: BLOOD SPECIMENOrdering Facility: [facility] Address: [address] [place] [address] Performed By: #### 3 016-3, 21245-0, 37211-7 ####[facility] LABIA [id number] [place] [address] [place] Creatinine and Glomerular filtration rate.predicted panel (S/P/Bld) 39 mL/min/1.73m??? Low >=60 [facility] Comment on above: Order Comment: Speci men Type: BLOOD SPECIMENOrdering Facility: [facility] Address: [address] [place] [address] Result Comment: Nancy mated Glomerular Filtration Rate [...] actual GFR. Performed By: #### 3 016-3, 89331-5, 11215-3 ####[facility] LABCLIA [id number] [place] [address] [place] Glucose [Mass/Vol] 77 mg/dL Normal 74-99 [facility] Comment on above: Order Comment: Deana borjas Type: BLOOD SPECIMENOrdering Facility: [facility] Address: [address] [place] [address] Result Comment: The [place] Diabetes Association (ADA) provides guidance for cutoff [...] Standards of Medical Care in Diabetes 2016, [place] Diabetes Association. Diabetes Care. 2016.39(Suppl 1). Performed By: #### 3 016-3, 80109-9, ####[facility] LABIA [id number] [place] [address] [place] Potassium [Moles/Vol] 4.4 mmol/L Normal 3.7-5.1 [facility] Comment on above: Order Comment: Deana borjas Type: BLOOD SPECIMENOrdering Facility: [facility] Address: [address] [place] [address] Performed By: #### 3 016-3, 38148-3, ####[facility] LABIA [id number] [address] [address] [place] Protein [Mass/Vol] 6.6 g/dL Normal 6.3-8.0 [facility] Comment on above: Order Comment: Speci men Type: BLOOD SPECIMENOrdering Facility: [facility] Address: [address] [place] [address] Performed By: #### 3 016-3, 55233-1, 95552-3 ####[facility] LABIA [id number] [place] [address] [place] Sodium [Moles/Vol] 141 mmol/L Normal 136-144 [facility] Comment on above: Order Comment: Speci men Type: BLOOD SPECIMENOrdering Facility: [facility] Address: [address] [place] [address] Performed By: #### 3 016-3, 57097-2, ####[facility] [id number] [place] [address] [place] Urea nitrogen [Mass/Vol] 21 mg/dL Normal 7-21 [facility] Comment on above: Order Comment: Speci men Type: BLOOD SPECIMENOrdering Facility: [facility] Address: [address] [place] [address] Performed By: #### 3 016-3, 93401-4, ####[facility] [id number] [place] [id number] [place] HbA1c (Bld)on 11-27-2023 Average glucose Estimated from glycated hemoglobin (Bld) [Mass/Vol] 166 mg/dL Normal [facility] Comment on above: Order Comment: Speci men Type: BLOOD SPECIMENOrdering Facility: [facility] Address: [address] [place] [address] Result Comment: eAG: (Estimated average glucose) is a calculated value from HgbA1c and is sales representative of the average blood glucose level in the last 2-3 month period. Performed By: #### 5 5454-3 ####[facility] LABCLIA [id number] [place] [address] [place] HbA1c (Bld) [Mass fraction] 7.4 % High 4.3-5.6 [facility] Comment on above: Order Comment: Speci men Type: BLOOD SPECIMENOrdering Facility: [facility] Address: [address] [place] [address] Result Comment: Amer [place] Diabetes Association guidelines indicate that patients with HgbA1c in the range 5.7-6.4% are at increased risk for development of diabetes, and intervention by lifestyle modification may be beneficial. HgbA1c greater or equal to 6.5% is considered diagnostic of diabetes. Performed By: #### 5 5454-3 ####[facility] LABCLIA [id number] [place] [address] [place] Lipid 1996 panelon 4 Cholesterol [Mass/Vol] 156 mg/dL Normal <200 [facility] Comment on above: Order Comment: Speci men Type: BLOOD SPECIMENOrdering Facility: [facility] Address: [address] [place] [address] Result Comment: <200 mg/dL, Desirable 200-239 mg/dL, Borderline high >239 mg/dL, High Performed By: #### 3 016-3, 53436-7, 14579-2 ####[facility] LABCLIA [id number] [address] [place] Cholesterol in HDL [Mass/Vol] 41 mg/dL Normal >39 [facility] Comment on above: Order Comment: Speci men Type: BLOOD SPECIMENOrdering Facility: [facility] Address: [address] [place] [address] Result Comment: 40-5 9 mg/dL, Acceptable >59 mg/dL, High: Negative risk factor for coronary heart disease <40 mg/dL, Low: Positive risk factor for coronary heart disease Performed By: #### 3 016-3, 38888-4, 41007-7 ####[facility] LABCLIA [id number] [place] [address] [place] Cholesterol in LDL [Mass/Vol] 85 mg/dL Normal <100 [facility] Comment on above: Order Comment: Speci men Type: BLOOD SPECIMENOrdering Facility: [facility] Address: [address] [place] [address] Result Comment: <100 mg/dL, Optimal 100-129 mg/dL, Near optimal/above optimal 130-159 mg/dL, Borderline high 160-189 mg/dL, High >189 mg/dL, Very high Secondary prevention optimal LDL Cholesterol levels are recommended to be < 70 mg/dL Performed By: #### 3 016-3, , ####[facility] LABCLIA [id number] [place] [address] [place] Cholesterol in LDL/Cholesterol in HDL [Mass ratio] 2.07 {ratio} Normal <2.54 [facility] Comment on above: Order Comment: Speci men Type: BLOOD SPECIMENOrdering Facility: [facility] Address: [address] [place] [address] Result Comment: Chong daniel: 1. National Cholesterol Education Program ATP III Guideline At-A-Glance Quick Desk Reference: National Heart, Lung, and Blood [place]. National Institutes of Health. 2001: NIH Publication No. 01-3305. 2. An International Atherosclerosis Society position paper: global recommendations for the management of dyslipidemia: executive summary, Atherosclerosis. 2014: 232(2):410-413. Performed By: #### 3 016-3, 70722-9, ####[facility] LABIA [id number] [place] [address] [place] Cholesterol in VLDL [Mass/Vol] 30 mg/dL High <30 [facility] Comment on above: Order Comment: Speci men Type: BLOOD SPECIMENOrdering Facility: [facility] Address: [address] [place] [address] Performed By: #### 3 016-3, , ####[facility] LABCLIA [id number] [place] [address] [place] Cholesterol non HDL [Mass/Vol] 115 mg/dL Normal <130 [facility] Comment on above: Order Comment: Speci men Type: BLOOD SPECIMENOrdering Facility: [facility] Address: [address] [place] [address] Result Comment: <130 mg/dL, Optimal 130-159 mg/dL, Near optimal/above optimal 160-189 mg/dL, Borderline high 190-219 mg/dL, High >219 mg/dL, Very high Secondary prevention optimal non HDL Cholesterol levels are recommended to be <100 mg/dL Performed By: #### 3 016-3, 12073-6, 36370-8 ####[facility] LABCLIA [id number] [place] [address] [place] Cholesterol.total/Alta sterol in HDL [Mass ratio] 3.80 {ratio} Normal <5.10 [facility] Comment on above: Order Comment: Speci men Type: BLOOD SPECIMENOrdering Facility: [facility] Address: [address] [place] [address] Performed By: #### 3 016-3, , ####[facility] LABCLIA [id number] [place] [address] [place] FASTING TIME 12 hrs Normal [facility] Comment on above: Order Comment: Speci men Type: BLOOD SPECIMENOrdering Facility: [facility] Address: [address] [place] [address] Performed By: #### 3 016-3, , ####[facility] LABCLIA [id number] [place] [address] [place] Triglyceride [Mass/Vol] 148 mg/dL Normal <150 [facility] Comment on above: Order Comment: Speci men Type: BLOOD SPECIMENOrdering Facility: [facility] Address: [address] [id number] Result Comment: <150 mg/dL, Normal 150-199 mg/dL, Borderline high 200-499 mg/dL, High >499 mg/dL, Very high Performed By: #### 3 016-3, 75014-3, 88437-4 ####[facility] LABCLIA [id number] [place] [id number] [facility] [place] TSH SerPl-aCncon 11-27-2023 TSH Qn 1.870 m[IU]/L Normal 0.270-4.200 [facility] Comment on above: Order Comment: Speci men Type: BLOOD SPECIMENOrdering Facility: [facility] Address: [facility] [place] [address] Performed By: #### 3 016-3, 94969-2, 40821-7 ####[facility] LABCLIA [id number] [address] OF [facility] CNOVon 10-10-2023 [facility] LINDSAY ACUNA ([id number]) 1945 F Date Time Provider Department 10/10/23 7:30 AM DAVID DUPREE [facility] During your visit today, we recorded the following information about you: Temperature Pulse Respiration Blood pressure 97.5 degrees 58/minute 18/minute 128/82 Weight 82.1 kg David Dupree APRN.FUN HOUSE ATTENDANT 10/10/2023 8:11 AM Signed Subjective HPI Nontoxic-appearing [...] mouth daily before breakfast. blood sugar diagnostic (CodesionUCH ULTRA TEST) test strip Test Blood Sugar [...] 1 tablet by mouth once daily. lancets (CodesionUCH DELICA PLUS LANCET) 30 gauge Test blood [...] Rate and (more content not included)... Normal [facility] CNOVon 09-29-2023 CNOV Office Visit ([facility] ) LINDSAY [id number]) 1945 F Date Time Provider Department 09/29/23 2:15 PM RADHA LEVINE [facility] During your visit today, we recorded the following information about you: Temperature Pulse Respiration Blood pressure 97.8 degrees 54/minute 18/minute 148/91 Weight 84 kg Radha Levine APRN.CNP 09/29/2023 6:12 PM Signed This note was created using NoteWriter. Subjective Lindsay Acuna is a 77 year old female. 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 Denies fever or chills Denies malaise or fatigue Denies new lotions, soaps, or medicines States that she was working out in the garden the same day the rash erupted. The history is provided by the patient. No english language learner teacher was used. Rash This is a new [...] 1 tablet by mouth once daily. lancets (CompositenceTOUCH DELICA PLUS LANCET) 30 gauge Test blood [...] state. Hematologi (more content not included)... Normal [facility] Glucose,Bedsideon 04-16-2019 Glucose [Mass/Vol] 161 mg/dL High 70-[address] [facility] Comment on above: Result Comment: Test performed by glucose meter. Results may be 10%-15% lower than serum/plasma values. (CLIA ID [id number]) Performed By: #### B GLU #### [facility] [address] [address] Surgical Pathologyon 019 Surgical Pathology [id number] [facility] DE[facility] PATHOLOGY AND LABORATORY MEDICINE [address] [place] [address] [id number] FINAL SURGICAL PATHOLOGY REPORT ___ NAME: LINDSAY ACUNA : 1945 73 Y F BILLING NO.: [id number] LOCATION: 1XEO PROCEDURE 01/09/2019 DATE: SURGEON: SANTIAGO [...] characteristics determined by the clinical laboratories of [facility]. They have not been cleared by [...] negativity on decalcified specimens. Professional Performing Location: [address] [address]. DEPARTMENT OF PATHOLOGY AND LABORATORY MEDICINE [place], [place] [address] Normal [facility] .Auto Diffon 08-22-2018 Ammonia mass conc (P) 1.10 10 3/mcL High 0.15-1.00 [facility] ([place]) Comment on above: Performed By: #### B MP, GFR #### [address] [address] Basophils #/vol (Bld) 0.00 10 3/mcL Normal 0.00-0.19 [facility] ([place]) Comment on above: Performed By: #### B MP, GFR #### [address] [address] Basophils/100 WBC (Bld) 0.3 % Normal 0.0-2.5 [facility] ([place]) Comment on above: Performed By: #### B MP, GFR #### [address] [address] Eosinophils #/vol (Bld) 0.00 10 3/mcL Normal 0.00-0.40 [facility] ([place]) Comment on above: Performed By: #### B MP, GFR #### [address] [address] Eosinophils/100 WBC (Bld) 0.2 % Normal 0.0-7.0 [facility] ([place]) Comment on above: Performed By: #### B MP, GFR #### [address] [address] Lymphocytes #/vol (Bld) 2.20 10 3/mcL Normal 0.77-3.85 [facility] ([place]) Comment on above: Performed By: #### B MP, GFR #### [address] [address] Lymphocytes/100 WBC (Bld) 20.5 % Normal 10.0-50.0 [facility] ([place] Comment on above: Performed By: #### B MP, GFR #### [address] [address] Monocytes/100 WBC (Bld) 10.5 % Normal 1.7-13.0 [facility] ([place] Comment on above: Performed By: #### B MP, GFR #### [address] [address] Neutrophils/100 WBC (Bld) 68.5 % Normal 37.0-80.0 [facility] ([place] Comment on above: Performed By: #### B MP, GFR #### [address] [address] .GFRon 08-22-2018 GFR Non- 33 ml/min/1.73sqm Normal [facility] ([place] Comment on above: Result Comment: GFR Population [...] Performed By: #### B MP, GFR #### [address] [address] #### DORY LOPEZ, [facility] #### [place] [address] [address] GFR 40 ml/min/1.73sqm Normal [facility] ([place] Comment on above: Result Comment: GFR Population [...] Performed By: #### B MP, GFR #### [place] [address] #### CBC, ADIFF, ANEU #### [address] [address] .NEUABSon 08-22-2018 Neutrophils #/vol (Bld) 7.40 10 3/mcL High 2.85-6.16 [facility] ([place] Comment on above: Performed By: #### B MP, GFR #### [place] [address] BMPon 08-22-2018 Calcium mass conc 8.3 mg/dL Low 8.4-10.2 [facility] ([place] Comment on above: Performed By: #### B MP, GFR #### [place] [address] #### CBC, ADIFF, ANEU #### [place] [address] Chloride molar conc 104 mmol/L Normal 98-107 [facility] ([place] Comment on above: Performed By: #### B MP, GFR #### [place] [address] #### CBC, ADIFF, ANEU #### [place] [address] CO2 molar conc 25 mmol/L Normal 23-31 [facility] ([place] Comment on above: Performed By: #### B MP, GFR #### [place] [address] #### CBC, ADIFF, ANEU #### [place] [address] Creatinine mass conc 1.53 mg/dL High 0.55-1.02 [facility] ([place]) Comment on above: Performed By: #### B MP, GFR #### [place] [address] #### CBC, ADIFF, ANEU #### [address] [address] Electrolyte Balance 10.0 mEq/L Normal [facility] ([place] Comment on above: Performed By: #### B MP, GFR #### [address] [address] #### CBC, ADIFF, ANEU #### [address] [address] Glucose mass conc 149 mg/dL High 83-110 [facility] ([place] Comment on above: Performed By: #### B MP, GFR #### [place] [address] #### CBC, ADIFF, ANEU #### [address] [address] Potassium molar conc 4.3 mmol/L Normal 3.5-5.1 [facility] ([place] Comment on above: Performed By: #### B MP, GFR #### [place] [address] #### CBC, ADIFF, ANEU #### [address] [address] Sodium molar conc 139 mmol/L Normal 136-145 [facility] ([place] Comment on above: Performed By: #### B MP, GFR #### [place] [address] #### CBC, ADIFF, ANEU #### [address] [address] Urea nitrogen mass conc 32 mg/dL High 7-18 [facility] ([place] Comment on above: Performed By: #### B MP, GFR #### [address] [address] #### CBC, ADIFF, ANEU #### [address] [address] Urea nitrogen/Creatinine mass ratio 21 ratio Normal 7-27 [facility] ([place] Comment on above: Performed By: #### B MP, GFR #### [place] [address] #### CBC, ADIFF, ANEU #### [facility] [address] [place], [place] [address] CBCon 08-22-2018 Erythrocyte distribution width Ratio (RBC) 12.6 % Normal 11.5-14.5 [facility] ([place] Comment on above: Performed By: #### B MP, GFR #### [place] [address] Hematocrit Volume Fraction (Bld) 27.5 % Low 37.0-47.0 [facility] ([place] Comment on above: Performed By: #### B MP, GFR #### [place] [address] Hemoglobin mass conc (Bld) 9.2 G/dL Low 12.0-16.0 [facility] ([place] Comment on above: Performed By: #### B MP, GFR #### [place] [address] MCH Entitic mass (RBC) 30.1 pg Normal 27.0-31.2 [facility] ([place]) Comment on above: Performed By: #### B MP, GFR #### [place] [address] MCHC mass conc (RBC) 33.5 G/dL Normal 33.0-37.0 [facility] ([place]) Comment on above: Performed By: #### B MP, GFR #### [place] [address] MCV Entitic volume (RBC) 89.8 fL Normal 80.0-94.0 [facility] ([place] Comment on above: Performed By: #### B MP, GFR #### [place] [address] Platelet mean volume Entitic volume (Bld) 9.3 fL Normal 7.4-10.4 [facility] ([place] Comment on above: Performed By: #### B MP, GFR #### [place] [address] Platelets #/vol (Bld) 224 10 3/mcL Normal 130-400 [facility] ([place]) Comment on above: Performed By: #### B MP, GFR #### [facility] [address] [place] [address] RBC #/vol (Bld) 3.06 10 6/mcL Low 4.20-5.40 [facility] ([place]) Comment on above: Performed By: #### B MP, GFR #### [address] [address] WBC #/vol (Bld) 10.80 10 3/mcL Normal 4.60-10.80 [facility] ([place] Comment on above: Performed By: #### B MP, GFR #### [place] [id number] XR KNEE 1 OR 2 VIEWS RIGHTon [...] AM Sign Date: 08/21/2018 9:55:37 AM Normal [facility] ([place] KNEE W/O CONTRAST RIGHTon 08-09-2018 CT [...] PM Sign Date: 08/09/2018 5:04:12 PM Normal [facility] ([place] .Auto Diffon 08-06-2018 Ammonia mass conc (P) 0.80 10 3/mcL Normal 0.15-1.00 [facility] ([place]) Comment on above: Performed By: #### C DORY SMITH, ANEU #### [address] [address] #### A1C #### [address] [address] Basophils #/vol (Bld) 0.10 10 3/mcL Normal 0.00-0.19 [facility] ([place] Comment on above: Performed By: #### DORY SOTO ANEU #### [address] [address] #### A1C #### [address] [address] Basophils/100 WBC (Bld) 0.6 % Normal 0.0-2.5 [facility] ([place]) Comment on above: Performed By: #### DORY SOTO, ANEU #### [place] [address] #### A1C #### [address] [address] Eosinophils #/vol (Bld) 0.20 10 3/mcL Normal 0.00-0.40 [facility] ([place] Comment on above: Performed By: #### C DORY SMITH, ANEU #### [place] [address] #### A1C #### [address] [address] Eosinophils/100 WBC (Bld) 1.7 % Normal 0.0-7.0 [facility] ([place] Comment on above: Performed By: #### C BC ADIFF, ANEU #### [address] [address] #### A1C #### [address] [address] Lymphocytes #/vol (Bld) 1.90 10 3/mcL Normal 0.77-3.85 [facility] ([place] Comment on above: Performed By: #### C BC ADIFF, ANEU #### [address] [address] #### A1C #### [address] [address] Lymphocytes/100 WBC (Bld) 20.8 % Normal 10.0-50.0 [facility] ([place] Comment on above: Performed By: #### C BC ADIFF, ANEU #### [address] [address] #### A1C #### [address] [address] Monocytes/100 WBC (Bld) 9.3 % Normal 1.7-13.0 [facility] ([place]) Comment on above: Performed By: #### C SARAH ADIFF, ANEU #### [address] [address] #### A1C #### [address] [address] Neutrophils/100 WBC (Bld) 67.6 % Normal 37.0-80.0 [facility] ([place] Comment on above: Performed By: #### C BC ADIFF, ANEU #### [address] [address] #### A1C #### [address] [address] .GFRon 08-06-2018 GFR 51 ml/min/1.73sqm Normal [facility] ([place] Comment on above: Result Comment: GFR [...] Performed By: #### B MP, GFR #### [address] [address] GFR Non- 42 ml/min/1.73sqm Normal [facility] ([place] Comment on above: Result Comment: GFR Population [...] Performed By: #### B MP, GFR #### [address] [address] .NEUABSon 08-06-2018 Neutrophils #/vol (Bld) 6.20 10 3/mcL High 2.85-6.16 [facility] ([place] Comment on above: Performed By: #### C DORY SMITH, FANTASMA #### [address] [address] #### A1C #### [address] [address] A1Con 08-06-2018 Hemoglobin A1c/Hemoglobin.total mass fraction (Bld) 7.9 % High 4.5-6.2 [facility] ([place] Comment on above: Performed By: #### C BC, ADIFF, ANEU #### [place] [id number] [place], [place] [address] #### A1C #### [address] [address] BMPon 08-06-2018 Calcium mass conc 9.2 mg/dL Normal 8.4-10.2 [facility] ([place]) Comment on above: Performed By: #### B MP, GFR #### [place] [id number] Chloride molar conc 105 mmol/L Normal 98-107 [facility] ([place]) Comment on above: Performed By: #### B MP, GFR #### [place] [address] CO2 molar conc 27 mmol/L Normal 23-31 [facility] ([place] Comment on above: Performed By: #### B MP, GFR #### [place] [address] Creatinine mass conc 1.25 mg/dL High 0.55-1.02 [facility] ([place]) Comment on above: Performed By: #### B MP, GFR #### [place] [address] Electrolyte Balance 11.0 mEq/L Normal [facility] ([place] Comment on above: Performed By: #### B MP, GFR #### [place] [address] Glucose mass conc 70 mg/dL Low 83-110 [facility] ([place] Comment on above: Performed By: #### B MP, GFR #### [place] [address] Potassium molar conc 5.0 mmol/L Normal 3.5-5.1 [facility] ([place] Comment on above: Performed By: #### B MP, GFR #### [place] [address] Sodium molar conc 143 mmol/L Normal 136-145 [facility] ([place] Comment on above: Performed By: #### B MP, GFR #### [place] [address] Urea nitrogen mass conc 26 mg/dL High 7-18 [facility] ([place] Comment on above: Performed By: #### B MP, GFR #### [place] [address] Urea nitrogen/Creatinine mass ratio 21 ratio Normal 7-27 [facility] ([place] Comment on above: Performed By: #### B MP, GFR #### [place] [address] CBCon 08-06-2018 Erythrocyte distribution width Ratio (RBC) 12.2 % Normal 11.5-14.5 [facility] ([place] Comment on above: Performed By: #### C DORY SMITH ANEU #### [address] [address] #### A1C #### [place] [address] Hematocrit Volume Fraction (Bld) 34.6 % Low 37.0-47.0 [facility] ([place] Comment on above: Performed By: #### C DORY SMITH, ANEU #### [address] [address] #### A1C #### [place] [address] Hemoglobin mass conc (Bld) 11.7 G/dL Low 12.0-16.0 [facility] ([place] Comment on above: Performed By: #### C DORY SMITH ANEU #### [address] [address] #### A1C #### [place] [address] MCH Entitic mass (RBC) 30.6 pg Normal 27.0-31.2 [facility] ([place] Comment on above: Performed By: #### C DORY SMITH, ANEU #### [address] [address] #### A1C #### [place] [address] MCHC mass conc (RBC) 33.7 G/dL Normal 33.0-37.0 [facility] ([place] Comment on above: Performed By: #### C BCKEITHIFF, ANEU #### [address] [address] #### A1C #### [address] [address] MCV Entitic volume (RBC) 90.9 fL Normal 80.0-94.0 [facility] ([place] Comment on above: Performed By: #### C BC ADIFF, ANEU #### [place] [address] #### A1C #### [place] [address] Platelet mean volume Entitic volume (Bld) 8.8 fL Normal 7.4-10.4 [facility] ([place] Comment on above: Performed By: #### C DORY SMITH, ANEU #### [place] [address] #### A1C #### [address] [address] Platelets #/vol (Bld) 355 10 3/mcL Normal 130-400 [facility] ([place] Comment on above: Performed By: #### C DORY SMITH, ANEU #### [place] [id number] #### A1C #### [address] [address] RBC #/vol (Bld) 3.81 10 6/mcL Low 4.20-5.40 [facility] ([place] Comment on above: Performed By: #### C BC ADIFF, ANEU #### [address] [address] #### A1C #### [address] [address] WBC #/vol (Bld) 9.20 10 3/mcL Normal 4.60-10.80 [facility] ([place]) Comment on above: Performed By: #### C BC ADIFF, ANEU #### [address], [place] [address] #### A1C #### [facility] [address] [place] [address] Vital Signs Date Time Vital Sign Value Performing Clinician Facility 10-02-2024 09:21-0400 Body height 167.[address] Kameron Caruso MD Work Phone: [facility] 10-02-2024 09:21-0400 Diastolic blood pressure 71 mm[Hg] Dr. Kameron Caruso MD Work Phone: [facility] 10-02-2024 09:21-0400 Heart rate 77 /min Dr. Kameron Caruso MD Work Phone: [facility] 10-02-2024 09:21-0400 Respiratory rate 16 /min Dr. Kameron Caruso MD Work Phone: [facility] 10-02-2024 09:21-0400 Systolic blood pressure 111 mm[Hg] Dr. Kameron Caruso MD Work Phone: [facility] 09-09-2024 09:02-0400 Heart rate 100 /min SILVINO PALAKATZLE DO [facility] 09-09-2024 07:58-0400 Blood Pressure Cuff Size SILVINO SCHEATZLE DO [facility] 09-09-2024 07:58-0400 Blood Pressure Location SILVINO SCHEATZLE DO [facility] 09-09-2024 07:58-0400 Blood Pressure Method SILVINO SCHEATZLE DO [facility] 09-09-2024 07:58-0400 Body temperature 96.8 [degF] SILVINO SCHEATZLE DO [facility] 09-09-2024 07:58-0400 Diastolic Blood Pressure Non-Invasive 78 mm[Hg] SILVINO SCHEATZLE DO [facility] 09-09-2024 07:58-0400 Heart rate 110 /min SILVINO CIDATZLE DO [facility] 09-09-2024 07:58-0400 Reason For Taking VItal Signs SILVINO CIDATZLE DO [facility] 09-09-2024 07:58-0400 Respiratory rate 16 /min SILVINO CIDATZLE DO [facility] 09-09-2024 07:58-0400 Systolic Blood Pressure Non-Invasive 122 mm[Hg] SILVINO CIDATZLE DO [facility] 09-09-2024 02:45-0400 Body temperature 97.7 [degF] SILVINO CIDATZLE DO [facility] 09-09-2024 02:45-0400 Diastolic Blood Pressure Non-Invasive 60 mm[Hg] SILVINO CIDATZLE DO [facility] 09-09-2024 02:45-0400 Heart rate 92 /min SILVINO CIDATZLE DO [facility] 09-09-2024 02:45-0400 Respiratory rate 16 /min SILVINO CIDATZLE DO [facility] 09-09-2024 02:45-0400 Systolic Blood Pressure Non-Invasive 108 mm[Hg] SILVINO PALAKATZLE DO [facility] 09-08-2024 22:28-0400 Blood Pressure Cuff Size SILVINO CIDATZLE DO [facility] 09-08-2024 22:28-0400 Blood Pressure Location SILVINO CIDATZLE DO [facility] 09-08-2024 22:28-0400 Blood Pressure Method SILVINO CIDATZLE DO [facility] 09-08-2024 22:28-0400 Body temperature 97.88 [degF] SILVINO CIDATZLE DO [facility] 09-08-2024 22:28-0400 Diastolic Blood Pressure Non-Invasive 54 mm[Hg] SILVINO SCHEATZLE DO [facility] 09-08-2024 22:28-0400 Heart rate 92 /min SILVINO PALAKATZLE DO [facility] 09-08-2024 22:28-0400 Reason For Taking VItal Signs SILVINO CIDATZLE DO [facility] 09-08-2024 22:28-0400 Respiratory rate 16 /min SILVINO PALAKATZLE DO [facility] 09-08-2024 22:28-0400 Systolic Blood Pressure Non-Invasive 118 mm[Hg] SILVINO CIDATZLE DO [facility] 09-08-2024 18:21-0400 Heart rate 90 /min SILVINO CIDATZLE DO [facility] 09-08-2024 09:08-0400 Blood Pressure Cuff Size SILVINO CIDATZLE DO [facility] 09-08-2024 09:08-0400 Blood Pressure Location SILVINO PALAKATZLE DO [facility] 09-08-2024 09:08-0400 Blood Pressure Method SILVINO CIDATZLE DO [facility] 09-08-2024 09:08-0400 Heart rate 114 /min SILVINO CIDATZLE DO [facility] 09-08-2024 09:08-0400 Reason For Taking VItal Signs SILVINO PALAKATZLE DO [employer] 09-04-2024 10:54-0400 Body temperature 96.62 [degF] SILVINO HA DO [facility] 09-03-2024 00:26-0400 Body temperature 97.34 [degF] SILVINO SCHEATZLE DO [facility] 08-30-2024 22:54-0400 Body temperature 98.06 [degF] SILVINO SCHEATZLE DO [facility] 08-26-2024 10:36-0400 Body weight 76 kg SILVINO SCHEATZLE DO [facility] 08-19-2024 06:00-0400 Body weight 75.3 kg SILVINO SCHEATZLE DO [facility] 08-15-2024 14:27-0400 Body height 170.2 cm SILVINO SCHEATZLE DO [facility] 08-15-2024 14:27-0400 Body weight 75.4 kg SILVINO CIDATZLE DO [facility] 08-15-2024 14:27-0400 Body weight 26.03 kg/m2 SILVINO SCHEATZLE DO [facility] 08-15-2024 09:02-0400 Diastolic blood pressure 69 mm[Hg] Prema Ramos MD Work Phone: [facility] 08-15-2024 09:02-0400 Systolic blood pressure 128 mm[Hg] Prema Ramos MD Work Phone: [facility] 08-15-2024 07:28-0400 Heart rate 86 /min Prema Ramos MD Work Phone: [facility] 08-15-2024 07:18-0400 Body temperature 97.3 [degF] Prema Ramos MD Work Phone: [facility] 08-15-2024 07:18-0400 Respiratory rate 23 /min Prema Ramos MD Work Phone: 7(649)888-674451 [place] [address] 08-15-2024 07:18-0400 SaO2% (BldA) [Mass fraction] 95 % Prema Ramos MD Work Phone: 7(769)249-171651 [place] [address] 08-05-2024 08:00-0400 Body height 170.2 cm Prema Ramos MD Work Phone: 6(564)425-837151 [place] [address] 08-05-2024 08:00-0400 Body mass index (BMI) [Ratio] 26.94 kg/m2 Prema Ramos MD Work Phone: 3(678)272-396351 [place] [address] 08-05-2024 08:00-0400 Body weight 78.02 kg Prema Ramos MD Work Phone: 2(195)800-595251 [place] [address] 08-02-2024 13:52-0400 Body temperature 98 [degF] Dr. Kameron Caruso MD Work Phone: 8(973)344-869735 [place] [address] 08-02-2024 13:52-0400 Diastolic blood pressure 91 mm[Hg] Dr. Kameron Caruso MD Work Phone: 0(714)730-734435 [place] [address] 08-02-2024 13:52-0400 Heart rate 109 /min Dr. Kameron Caruso MD Work Phone: 7(287)949-971035 [place] [address] 08-02-2024 13:52-0400 Respiratory rate 16 /min Dr. Kameron Caruso MD Work Phone: 8(195)397-544311 [place] [address] 08-02-2024 13:52-0400 SaO2% (BldA) [Mass fraction] 98 % Dr. Kameron Caruso MD Work Phone: 1(034)414-309459 [address] 08-02-2024 13:52-0400 Systolic blood pressure 153 mm[Hg] Dr. Kameron Caruso MD Work Phone: 5(927)156-432835 [place] [address] 08-02-2024 12:46-0400 Body height 167.[address] Kameron Caruso MD Work Phone: [facility] 08-02-2024 12:46-0400 Body mass index (BMI) [Ratio] 26.6 kg/m2 Dr. Kameron Caruso MD Work Phone: [facility] 08-02-2024 12:46-04[address] Body weight [address] Kameron Caruso MD Work Phone: [facility] 06-26-2024 09:39-0500 Body mass index (BMI) [Ratio] 27.25 kg/m2 Emma Sotomayor DIRECTOR OF 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.FUN HOUSE ATTENDANT Work Phone: [facility] 06-26-2024 09:39-0500 Body weight 78.93 kg Emma Sotomayor DIRECTOR OF 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.FUN HOUSE ATTENDANT Work Phone: [facility] 06-26-2024 09:39-0500 Diastolic blood pressure 88 mm[Hg] Emma Sotomayor DIRECTOR OF 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.FUN HOUSE ATTENDANT Work Phone: [facility] 06-26-2024 09:39-0500 Heart rate 93 /min Emma Sotomayor DIRECTOR OF 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.FUN HOUSE ATTENDANT Work Phone: [facility] 06-26-2024 09:39-0500 Respiratory rate 16 /min Emma Sotomayor DIRECTOR OF 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.FUN HOUSE ATTENDANT Work Phone: [facility] 06-26-2024 09:39-0500 SaO2% (BldA) [Mass fraction] 98 % Emma Sotomayor DIRECTOR OF 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.FUN HOUSE ATTENDANT Work Phone: [facility] 06-26-2024 09:39-0500 Systolic blood pressure 144 mm[Hg] Emma Sotomayor DIRECTOR OF 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.FUN HOUSE ATTENDANT Work Phone: [facility] 05-31-2024 08:56-0500 Diastolic blood pressure 84 mm[Hg] Kameron Caruso MD Work Phone: [facility] 05-31-2024 08:56-0500 Systolic blood pressure 136 mm[Hg] Kameron Caruso MD Work Phone: [facility] 05-31-2024 08:47-0500 Body mass index (BMI) [Ratio] 27.28 kg/m2 Kameron Caruso MD Work Phone: [facility] 05-31-2024 08:47-0500 Body weight 79 kg Kameron Caruso MD Work Phone: [facility] 05-31-2024 08:47-0500 Heart rate 100 /min Kameron Caruso MD Work Phone: [facility] 05-31-2024 08:47-0500 Respiratory rate 18 /min Kameron Caruso MD Work Phone: [facility] 11-28-2023 09:42-0400 Diastolic blood pressure 78 mm[Hg] Kameron Caruso MD Work Phone: [facility] 11-28-2023 09:42-0400 Systolic blood pressure 142 mm[Hg] Kameron Caruso MD Work Phone: [facility] 11-28-2023 09:41-0400 Body mass index (BMI) [Ratio] 27.82 kg/m2 Kameron Caruso MD Work Phone: [facility] 11-28-2023 09:41-0400 Body weight 80.56 kg Kameron Caruso MD Work Phone: [facility] 11-28-2023 09:41-0400 Heart rate 68 /min Kameron Caruso MD Work Phone: [facility] 11-28-2023 09:41-0400 Respiratory rate 18 /min Kameron Caruso MD Work Phone: [facility] 10-10-2023 07:31-0400 Body mass index (BMI) [Ratio] 28.35 kg/m2 David Dupree DIRECTOR OF 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.FUN HOUSE ATTENDANT Work Phone: [facility] 10-10-2023 07:31-0400 Body temperature 97.5 [degF] David Dupree DIRECTOR OF 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.FUN HOUSE ATTENDANT Work Phone: [facility] 10-10-2023 07:31-0400 Body weight 82.1 kg David Dupree DIRECTOR OF 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.FUN HOUSE ATTENDANT Work Phone: [facility] 10-10-2023 07:31-0400 Diastolic blood pressure 82 mm[Hg] David Claudylebury DIRECTOR OF 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.FUN HOUSE ATTENDANT Work Phone: [facility] 10-10-2023 07:31-0400 Heart rate 58 /min David Pakantonia DIRECTOR OF 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.FUN HOUSE ATTENDANT Work Phone: [facility] 10-10-2023 07:31-0400 Respiratory rate 18 /min David Dupree DIRECTOR OF 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.FUN HOUSE ATTENDANT Work Phone: [facility] 10-10-2023 07:31-0400 SaO2% (BldA) [Mass fraction] 100 % [facility] DIRECTOR OF 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.FUN HOUSE ATTENDANT Work Phone: [facility] 10-10-2023 07:31-0400 Systolic blood pressure 128 mm[Hg] David Dupree DIRECTOR OF 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.FUN HOUSE ATTENDANT Work Phone: [facility] 09-29-2023 14:14-0400 Body mass index (BMI) [Ratio] 29 kg/m2 Radha Levine DIRECTOR OF 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.FUN HOUSE ATTENDANT Work Phone: [facility] 09-29-2023 14:14-0400 Body temperature 97.81 [degF] Radha Levine DIRECTOR OF 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.FUN HOUSE ATTENDANT Work Phone: [facility] 09-29-2023 14:14-0400 Body weight 84 kg Radha Levine DIRECTOR OF 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.FUN HOUSE ATTENDANT Work Phone: [facility] 09-29-2023 14:14-0400 Diastolic blood pressure 91 mm[Hg] Radha Levine DIRECTOR OF 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.FUN HOUSE ATTENDANT Work Phone: [facility] 09-29-2023 14:14-0400 Heart rate 54 /min Radha Levine DIRECTOR OF 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.FUN HOUSE ATTENDANT Work Phone: [facility] 09-29-2023 14:14-0400 Respiratory rate 18 /min Radha Levine DIRECTOR OF 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.FUN HOUSE ATTENDANT Work Phone: [facility] 09-29-2023 14:14-0400 SaO2% (BldA) [Mass fraction] 99 % Radha Levine DIRECTOR OF 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.FUN HOUSE ATTENDANT Work Phone: [facility] 09-29-2023 14:14-0400 Systolic blood pressure 148 mm[Hg] Radha Levine DIRECTOR OF 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.FUN HOUSE ATTENDANT Work Phone: [facility] 05-27-2022 09:42-0500 Body weight 83.83 kg Kameron Caruso MD Work Phone: [facility] 05-27-2022 09:42-0500 Diastolic blood pressure 84 mm[Hg] Kameron Caruso MD Work Phone: [facility] 05-27-2022 09:42-0500 Heart rate 68 /min Kameron Caruso MD Work Phone: [facility] 05-27-2022 09:42-0500 Respiratory rate 16 /min Kameron Caruso MD Work Phone: [facility] 05-27-2022 09:42-0500 Systolic blood pressure 136 mm[Hg] Kameron Caruso MD Work Phone: [facility] 03-02-2022 10:52-0400 Diastolic blood pressure 76 mm[Hg] Emma Canaleshof DIRECTOR OF 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.FUN HOUSE ATTENDANT Work Phone: [facility] 03-02-2022 10:52-0400 Heart rate 92 /min Emma Tannhof DIRECTOR OF 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.FUN HOUSE ATTENDANT Work Phone: [facility] 03-02-2022 10:52-0400 Respiratory rate 18 /min Emma Tannhof DIRECTOR OF 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.FUN HOUSE ATTENDANT Work Phone: [facility] 03-02-2022 10:52-0400 Systolic blood pressure 140 mm[Hg] Emma Tannhof DIRECTOR OF 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.FUN HOUSE ATTENDANT Work Phone: [facility] 11-23-2021 09:39-0400 Body weight 83.1 kg Kameron Caruso MD Work Phone: [facility] 11-23-2021 09:39-0400 Diastolic blood pressure 80 mm[Hg] Kameron Caruso MD Work Phone: [facility] 11-23-2021 09:39-0400 Heart rate 84 /min Kameron Caruso MD Work Phone: [facility] 11-23-2021 09:39-0400 Respiratory rate 16 /min Kameron Caruso MD Work Phone: [facility] 11-23-2021 09:39-0400 Systolic blood pressure 138 mm[Hg] Kameron Caruso MD Work Phone: [facility] 10-16-2019 10:09-0400 BP Diastolic 72 mm[Hg] Santiago Miller [facility] [place] , [place] 10-16-2019 10:09-0400 BP Systolic 144 mm[Hg] Santiago Miller [facility] [place] [facility] [place] 10-16-2019 10:09-0400 Pulse (Heart Rate) 62 /min Santiago Miller [facility], [place] 10-16-2019 10:09-0400 Pulse Oximetry 98 % Santiago Miller [facility] , [place] 10-16-2019 10:09-0400 Respiratory Rate 18 /min [facility] [place] 10-16-2019 09:15-0400 BMI (Body Mass Index) 29.44 kg/m2 Santiago Miller [facility] [place] [place] 10-16-2019 09:15-0400 Body Temperature 97.81 [degF] [facility] [place] 10-16-2019 09:15-0400 Body weight 85.28 kg Santiago Miller [facility] , [place] 10-16-2019 09:15-0400 Height 170.2 cm Santiago Miller [facility] , [place] 01-09-2019 12:06-0400 BP Diastolic 73 mm[Hg] Santiago Miller [facility] [place] , [place] 01-09-2019 12:06-0400 BP Systolic 121 mm[Hg] Santiago Miller [facility] [place] , [place] 01-09-2019 11:50-0400 Pulse (Heart Rate) 64 /min Santiago Miller [facility], [place] 01-09-2019 11:50-0400 Pulse Oximetry 100 % Santiago Miller [facility] [place] , [place] 01-09-2019 11:50-0400 Respiratory Rate 18 /min [facility] [place] 01-09-2019 10:28-0400 BMI (Body Mass Index) 28.82 kg/m2 Santiago Miller [facility], [place] 01-09-2019 10: Body weight 83.46 kg Santiago Miller [facility] , [place] 01-09-2019 10: Height 170.2 cm Santiago Miller [facility] , [place] 01-09-2019 10:040 Body Temperature 97.5 [degF] Santiago Miller [facility], [place] Encounters Encounter Date Encounter Type Care Provider Facility Start: 10-29-2024 ambulatory Kameron Caruso Facilit y:[facility] Start: 10-23-2024 ambulatory Efewongskye Olebonie OLS Fa cility:[facility] Start: 10-22-2024 ambulatory Efewdesireebe Enricoe OLS Fa cility:[facility] Start: 10-15-2024 ambulatory Efewongbe Oleghe OLS Fa cility:[facility] Start: 10-08-2024 ambulatory Kameron Caruso Facilit y:[facility] Start: 10-02-2024 End: 10-02-[address] Mj Benavides MD -[facility] Work Phone: Start: 10-02-2024 End: 10-02-[address] Kameron Caruso MD Work Phone: [facility] Work Phone: Start: 10-01-2024 ambulatory Kameron Caruso Facilit y:[facility] Start: 10-01-2024 Registered Referred Safia Torres Start: 09-29-2024 ambulatory Kameron Caruso Facilit y:[facility] Start: 09-29-2024 Registered Referred Safia Torres Start: 09-24-2024 ambulatory Kameron Lovelaceck Facilit y:[facility] Start: 09-24-2024 Registered Referred Safia Torres Start: 09-17-2024 ambulatory Kameron Caruso Facilit y:[facility] Start: 09-17-2024 Registered Referred Safia Torres Start: 09-11-2024 End: 09-11-2024 ambulatory Kameron [facility] Start: 09-10-2024 End: 09-10-2024 ambulatory [facility] Start: 09-10-2024 Registered Referred Safia Torres Start: 08-30-2024 End: 08-30-2024 Telephone encounter Kameron Caruso MD Work Phone: [facility] [place] Comment on above: [facility] requesti ng verbal agree to follow Start: 08-15-2024 End: 09-09-2024 Evaluation and management of inpatient SILVINO HA DO [facility] Start: 08-09-2024 Evaluation and manag ement of inpatient [facility] Facility[facility] Start: 08-06-2024 Evaluation and manag ement of inpatient [facility] Start: 08-02-2024 End: 08-02-2024 ambulatory JUVENTINO SAVOY Facility:[facility] Start: 08-02-2024 End: 08-15-2024 Evaluation and management [...] Kameron Caruso MD Work Phone: [facility] [place] Comment on above: medication not on cu rrent med list Start: 06-26-2024 End: 06-26-2024 Office outpatient visit 25 minutes Emma Sotomayor APRN.CNP Work Phone: [facility] [place] [facility] Comment on above: Atrial fibrillation, unspecified type (HCC) (Primary Dx); Hypothyroidism, unspecified type; Need for malaria prophylaxis Start: 06-26-2024 End: 06-26-2024 ambulatory EMMA SOTOMAYOR Facility:[facility] Start: 06-25-2024 ambulatory K[address]ERON CARUSO [facility] ity:[facility] Start: 06-24-2024 End: 06-24-2024 Telephone encounter Kameron Caruso MD Work Phone: [facility] Comment on above: Patient Update Start: 06-11-2024 End: 06-11-2024 Telephone encounter Kameron Caruso MD Work Phone: [facility] Comment on above: Results Start: 06-11-2024 End: 06-11-2024 ambulatory KAMERON CARUSO Facility:[facility] Start: 06-10-2024 End: 06-11-2024 Telephone encounter Kameron Caruso MD Work Phone: [facility] Comment on above: Medication Problem Start: 05-31-2024 End: 05-31-2024 ambulatory KAMERON CARUSO Facility:[facility] Start: 05-31-2024 End: 05-31-2024 Patient encounter procedure Kameron Caruso MD Work Phone: [facility] [place] Comment on above: Essential hypertensi on, [...] Start: 05-23-2024 End: 05-23-2024 ambulatory KAMERON CARUSO Facility:[facility] Start: 11-28-2023 End: 11-28-2023 ambulatory KAMERON CARUSO Facility:[facility] Start: 11-28-2023 End: 11-28-2023 Patient encounter procedure Kameron Caruso MD Work Phone: [facility] [place] Comment on above: 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, unspecified CKD stage, unspecified whether group home insulin use (HCC) (Primary Dx); Essential hypertension, benign; Chronic kidney disease, stage 3a (HCC); Hyperlipidemia, unspecified hyperlipidemia type; Hypothyroidism, unspecified type; Edema of left lower leg; Memory loss; Type 2 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, without long-term current use of insulin (HCC) Start: 11-27-2023 End: 11-27-2023 ambulatory [facility] Facility:[facility] Start: 10-10-2023 End: 10-10-2023 ambulatory [facility] Facility:[facility] Start: 10-10-2023 End: 10-10-2023 Office outpatient visit 25 minutes David Dupree APRN.FUN HOUSE ATTENDANT Work Phone: [facility] Comment on above: Rash (Primary Dx) Start: 09-29-2023 End: 09-29-2023 ambulatory [facility] Facility:[facility] Start: 09-29-2023 End: 09-29-2023 Patient encounter procedure Radha Levine APRN.FUN HOUSE ATTENDANT Work Phone: [facility] Comment on above: Allergic contact lexi matitis due to plant (Primary Dx) Start: 09-19-2023 Refill Kameron nixon MD Work Phone: [facility] [place] Comment on above: Refill Request Start: 04-08-2023 Telephone encounter Kameron bucio MD Work Phone: [address] [place] [address] Comment on above: Refill Request Start: 11-25-2022 Telephone encounter Kameron bucio MD Work Phone: [facility] [place] Comment on above: Patient Question Start: 05-27-2022 End: 05-27-2022 Patient encounter procedure Kameron Caruso MD Work Phone: [facility] [place] Comment on above: Essential hypertensi on, benign (Primary Dx); Hypothyroidism, unspecified type; Type 2 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, without long-term current use of insulin (HCC); Hyperlipidemia, unspecified hyperlipidemia type; Chronic kidney disease, stage 3a (HCC); Edema of left lower leg; Wellness examination Start: 05-27-2022 End: 05-27-2022 Patient encounter status Kameron Caruso MD Work Phone: [facility] [place] Start: 04-11-2022 Refill Kameron nixon MD Work Phone: [facility] Comment on above: Refill Request Start: 03-02-2022 ambulatory Kameron nixon MD Work Phone: [facility] [place] Comment on above: Back Pain Start: 03-02-2022 End: 03-02-2022 Patient encounter procedure Emma Sotomayor APRN.FUN HOUSE ATTENDANT Work Phone: [facility] [place] Comment on above: Acute midline low ba ck pain without sciatica (Primary Dx) Start: 01-11-2022 Refill Mj ORTIZ RN.FUN HOUSE ATTENDANT Work Phone: [facility] [place] Comment on above: Refill Request Start: 01-11-2022 Refill Kameron nixon MD Work Phone: [facility] Comment on above: Refill Request Start: 12-16-2021 Telephone encounter Kameron bucio MD Work Phone: [facility] Comment on above: Diabetic Testing Sup plies Start: 11-23-2021 End: 11-23-2021 Refill Kameron Caruso MD Work Phone: [facility] [place] Comment on above: 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, unspecified CKD stage, unspecified whether group home insulin use (HCC) (Primary Dx); Essential hypertension, benign; Hyperlipidemia, unspecified hyperlipidemia type; Stage 3b chronic kidney disease (HCC); Hypothyroidism, unspecified type; Memory loss Start: 10-14-2021 Refill Kameron nixon MD Work Phone: [facility] Comment on above: Refill Request Start: 09-27-2021 Telephone encounter Kameron bucio MD Work Phone: [facility] [place] Comment on above: information requeste d/rxs needed Start: 09-13-2021 Telephone encounter Kameron bucio MD Work Phone: [facility] [place] Comment on above: Patient Question; Me dication [...] Work Phone: Start: 08-15-2024 Assay of magnesium Nase scott Mccoy DIRECTOR 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 Work Phone: Start: 08-15-2024 Glucose measurement, blood Christos Voss MD Work Phone: Start: 08-14-2024 Glucose measurement, blood Christos Voss MD Work Phone: Start: 08-14-2024 Glucose measurement, blood Christos Voss MD Work Phone: Start: 08-14-2024 Glucose measurement, blood Christos Voss MD Work Phone: Start: 08-14-2024 Assay of magnesium Nase rin Jaiden Nadine DIRECTOR 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 Work Phone: Start: 08-13-2024 Glucose measurement, blood Christos Voss MD Work Phone: Start: 08-13-2024 Glucose measurement, blood Christos Voss MD Work Phone: Start: 08-13-2024 Glucose measurement, blood Christos Voss MD Work Phone: Start: 08-13-2024 Glucose measurement, blood Felicity Castellano MD Work Phone: Start: 08-13-2024 Assay of magnesium Nase rin Jaiden Nadine DIRECTOR 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 Work Phone: Start: 08-13-2024 Glucose measurement, blood Felicity Castellano MD Work Phone: Start: 08-12-2024 Glucose measurement, blood Felicity Castellano MD Work Phone: Start: 08-12-2024 Glucose measurement, blood Felicity Castellano MD Work Phone: Start: 08-12-2024 Glucose measurement, blood Felicity Castellano MD Work Phone: Start: 08-12-2024 Assay of magnesium Nase rin Jaiden Nadine DIRECTOR 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 Work Phone: Start: 08-12-2024 Glucose measurement, blood Felicity Castellano MD Work Phone: Start: 08-11-2024 Glucose measurement, blood Felicity Castellano MD Work Phone: Start: 08-11-2024 Glucose measurement, blood Felicity Castellano MD Work Phone: Start: 08-11-2024 Glucose measurement, blood Felicity Castellano MD Work Phone: Start: 08-11-2024 Assay of magnesium Nase rin Jaiden Nadine DIRECTOR 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 Work Phone: Start: 08-10-2024 Glucose measurement, blood Felicity Castellano MD Work Phone: Start: 08-10-2024 Glucose measurement, blood Felicity Castellano MD Work Phone: Start: 08-10-2024 End: 08-10-2024 Culture bacterial blood aerobic w/id isolates Radha Gr DIRECTOR 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 Work Phone: Start: 08-10-2024 Glucose measurement, blood Felicity Castellano MD Work Phone: Start: 08-10-2024 End: 08-10-2024 Glucose measurement, blood Felicity Castellano MD Work Phone: Start: 08-10-2024 Glucose measurement, blood Felicity Castellano MD Work Phone: Start: 08-10-2024 Assay of magnesium Nase rin M Nadine DIRECTOR 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 Work Phone: Start: 08-10-2024 Glucose measurement, blood [...] Work Phone: Start: 08-09-2024 Assay of magnesium Nase rin M Nadine DIRECTOR 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 Work Phone: Start: 08-09-2024 Glucose measurement, blood Felicity Castellano MD Work Phone: Start: 08-08-2024 Glucose measurement, blood Felicity Castellano MD Work Phone: Start: 08-08-2024 Culture bct isol&prs mptv id isolate ea urine Bella Cardenas DIRECTOR 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 Work Phone: Start: 08-08-2024 EXTRA MICRO Bella Hwang Ma rtforrest DIRECTOR 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 Work Phone: Start: 08-08-2024 URINALYSIS REFLEX TO CULTURE Bella Cardenas DIRECTOR 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 Work Phone: Start: 08-08-2024 Ct head/brain w/o co ntrast material Bella Hwang Theresa DIRECTOR 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 Work Phone: Start: 08-08-2024 Glucose measurement, blood Felicity Castellano MD Work Phone: Start: 08-08-2024 End: 08-08-2024 Glucose measurement, blood Felicity Castellano MD Work Phone: Start: 08-08-2024 Assay of magnesium Nase rin M Nadine DIRECTOR 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 Work Phone: Start: 08-07-2024 Glucose measurement, blood Felicity Castellano MD Work Phone: Start: 08-07-2024 Glucose measurement, blood Felicity Castellano MD Work Phone: Start: 08-07-2024 Glucose measurement, blood Felicity Castellano MD Work Phone: Start: 08-07-2024 Glucose measurement, blood Felicity Castellano MD Work Phone: Start: 08-06-2024 Glucose measurement, blood Felicity Castellano MD Work Phone: Start: 08-06-2024 Assay of magnesium Nase rin M Nadine DIRECTOR 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 Work Phone: Start: 08-06-2024 Glucose measurement, blood Felicity Castellano MD Work Phone: Start: 08-06-2024 Glucose measurement, blood eFlicity Castellano MD Work Phone: Start: 08-06-2024 Radiologic exam swal low function contrast study Shanna Russ DIRECTOR 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 Work Phone: Start: 08-06-2024 SPEECH MODIFIED KEAGAN UM SWALLOW Shanna Russ DIRECTOR 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 Work Phone: Start: 08-06-2024 Glucose measurement, blood Felicity Castellano MD Work Phone: Start: 08-05-2024 Glucose measurement, blood Felicity Castellano MD Work Phone: Start: 08-05-2024 Assay of magnesium Abram Hwang Nadine DIRECTOR 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 Work Phone: Start: 08-05-2024 Glucose measurement, blood Felicity Castellano MD Work Phone: Start: 08-05-2024 Glucose measurement, blood Felicity Castellano MD Work Phone: Start: 08-05-2024 Echo tthrc r-t 2d w/wom-mode compl spec&colr d Taran Traore DIRECTOR 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 Work Phone: Start: 08-05-2024 Glucose measurement, blood Felicity Castellano MD Work Phone: Start: 08-05-2024 Assay of magnesium Abram Hwang Nadine DIRECTOR 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 Work Phone: Start: 08-05-2024 Glucose measurement, blood [...] 08-04-2024 Assay of magnesium Abram Mccoy DIRECTOR 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 Work Phone: Start: 08-04-2024 Glucose measurement, blood Richard Mejia MD Work Phone: Start: 08-03-2024 Ct head/brain w/o co ntrast material Shaila Méndez PA-C Start: 08-03-2024 Sodium serum plasma or whole blood Shanna Denise MD Work Phone: Start: 08-03-2024 Glucose measurement, blood Richard Mejia MD Work Phone: Start: 08-03-2024 Radiologic exam abdo men 1 view Balbir Mccoy DIRECTOR 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 Work Phone: Start: 08-03-2024 Glucose measurement, blood [...] stem w/o contrast material Taran Traore DIRECTOR 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 Work Phone: Start: 08-03-2024 ABORH TYPE RECONFIRMATION Cindy CORDOVA Work Phone: Start: 08-03-2024 Assay of magnesium Abram Mccoy DIRECTOR 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 Work Phone: Start: 08-02-2024 Glucose measurement, blood [...] Performed By: #### X M #### [facility] ([facility]) [address] [place] [address] Start: 08-02-2024 EXTRA MICRO Taran Traore DIRECTOR 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 Work Phone: Start: 08-02-2024 Hemoglobin glycosylated a1c Balbir Mccoy DIRECTOR 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 Work Phone: Start: 08-02-2024 Hepatic function panel Balbir Mccoy DIRECTOR 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 Work Phone: Start: 08-02-2024 Iadna s aureus ampli fied probe tq Balbir Mccoy DIRECTOR 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 Work Phone: Start: 08-02-2024 URINALYSIS REFLEX TO CULTURE Taranvickie Traore DIRECTOR 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 Work Phone: Start: 08-02-2024 Urnls dip stick/tabl et reagent auto microscopy Taran Priestzoie DIRECTOR 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 Work Phone: Start: 08-02-2024 SARS-CoV-2, Influenz a [...] Author Start: 08-15-2025 Complete blood count Hemoglobin/Hematocrit [facility] Start: 08-15-2025 Creatinine measurement Serum Creatinine [facility] Start: 08-02-2025 Thyroid stimulating hormone measurement [facility] Start: 06-26-2025 Annual PCP Team Chronic Disease Visit Annual PCP Team Chronic Disease Visit [facility] Start: 05-31-2025 Annual PCP Team Chronic Disease Visit Annual PCP Team Chronic Disease Visit [facility] Start: 05-31-2025 Covid-19 Vaccine ( season) Covid-19 Vaccine ( season) [facility] Comment on above: Postponed from 01/14/2024 (Declined at t his time) Start: 05-31-2025 Pneumococcal Vaccine: 50+ (2 of 2 - PPSV23) Pneumococcal Vaccine: 50+ (2 of 2 - PPSV23) [facility] Comment on above: Postponed from 12/19/2019 (Declined at t his time) Start: 05-23-2025 Creatinine measurement Serum Creatinine [facility] Start: 05-23-2025 Hepatitis B screening Urine Albumin:Creatinine Ratio [facility] Start: 05-23-2025 Hepatitis B surface antibody level LDL Cholesterol [facility] Start: 02-02-2025 Hemoglobin A1c measurement HbA1C [facility] Start: 01-13-2025 Influenza vaccination [facility] Start: 01-03-2025 Glaucoma screening Dilated Retinal Exam [facility] Start: 12-24-2024 End: 12-24-2024 Patient encounter procedure 12/24/2024 9:20 AM EDT Office Visit Family [place] [facility] [address] [place] [id number] Kameron Caruso MD [address] [place], [place] [id number] 6 month follow up Family [place] [facility] Comment on above: 6 month follow up Start: 11-28-2024 End: 02-27-2025 Comprehensive metabolic 2000 panel - Serum or Plasma COMPREHENSIVE METABOLIC PANEL Lab Routine Essential hypertension, benign Chronic kidney disease, stage 3a (HCC) Hyperlipidemia, unspecified hyperlipidemia type Expected: 11/28/2024 (Approximate), Expires: 02/27/2025 [facility] Work Phone: Comment on above: Expected: 11/28/2024 (Approximate), Expi res: 02/27/2025 Start: 11-28-2024 End: 02-27-2025 Hemoglobin A1c in Blood HEMOGLOBIN A1C Lab Routine Expected: 11/28/2024 (Approximate), Expires: 02/27/2025 [facility] Comment on above: Expected: 11/28/2024 (Approximate), Expi res: 02/27/2025 Start: 11-28-2024 End: 02-27-2025 Lipid 1996 panel - Serum or Plasma LIPID PANEL BASIC Lab Routine Essential hypertension, benign Hyperlipidemia, unspecified hyperlipidemia type Expected: 11/28/2024 (Approximate), Expires: 02/27/2025 [facility] Comment on above: Expected: 11/28/2024 (Approximate), Expi res: 02/27/2025 Start: 11-28-2024 End: 02-27-2025 Thyrotropin [Units/volume] in Serum or Plasma THYROID STIMULATING HORMONE Lab Routine Hypothyroidism, unspecified type Expected: 11/28/2024 (Approximate), Expires: 02/27/2025 [facility] Comment on above: Expected: 11/28/2024 (Approximate), Expi res: 02/27/2025 Start: 11-27-2024 Annual PCP Team Chronic Disease Visit Annual PCP Team Chronic Disease Visit [facility] Start: 11-27-2024 Anxiety Screening Anxiety Screening [facility] Start: 11-27-2024 Depression Screening Depression Screening [facility] Start: 11-27-2024 RSV Vaccine (1 - 1-dose 60+ series) RSV Vaccine (1 - 1-dose 60+ series) [facility] Comment on above: Postponed from 2004 (Declined at t his time) Start: 11-27-2024 RSV Vaccine (1 - 1-dose 75+ series) RSV Vaccine (1 - 1-dose 75+ series) [facility] Comment on above: Postponed from 10/26/2019 (Declined at t his time) Start: 11-26-2024 Creatinine measurement Serum Creatinine [facility] Start: 11-26-2024 Hepatitis B surface antibody level LDL Cholesterol [facility] Start: 11-20-2024 Hemoglobin A1c measurement HbA1C [facility] Start: 11-11-2024 Influenza vaccination [facility] Comment on above: Postponed from 01/14/2024 (Declined at t his time) Start: 10-08-2024 End: 10-08-2024 ambulatory [facility] Start: 10-02-2024 Evaluation of diagnostic study results 12 Lead EKG performed by [facility] Start: 08-02-2024 [facility] Start: 08-02-2024 SARS-CoV-2, Influenza & RSV (PCR) SARS-CoV-2, Influenza & RSV (PCR) [facility] Start: 08-02-2024 End: 08-02-2024 [facility] Start: 08-02-2024 Electrocardiographic procedure [facility] Start: 08-02-2024 Oxygen therapy [facility] Start: 07-24-2024 End: 10-23-2024 Thyrotropin [Units/volume] in Serum or Plasma THYROID STIMULATING HORMONE Lab Routine Hypothyroidism, unspecified type Expected: 07/24/2024, Expires: 10/23/2024 [facility] Work Phone: Comment on above: Expected: 07/24/2024, Expires: Start: 07-24-2024 End: 10-23-2024 Thyroxine (T4) free [Mass/volume] in Serum or Plasma T4 FREE/FREE THYROXINE Lab Routine Hypothyroidism, unspecified type Expected: 07/24/2024, Expires: 10/23/2024 [facility] Comment on above: Expected: 07/24/2024, Expires: Start: 06-25-2024 End: 06-25-2024 Patient encounter procedure 06/25/2024 9:40 AM EST Office Visit [facility] [place] [address] [place] [address] Kameron Caruso MD [address] [place] [address] 1 mo f/u, new dx afib. [facility] [place] Comment on above: 1 mo f/u, new dx afib. Start: 06-11-2024 End: 06-11-2024 Patient encounter procedure 06/11/2024 8:50 AM EST Office Visit Cardiology [address] [place] [address] Atrial fibrillation, unspecified type (HCC) [I48.91] Cardiology Comment on above: Atrial fibrillation, unspecified type (H CC) [I48.91] Start: 05-30-2024 Annual PCP Team Chronic Disease Visit Annual PCP Team Chronic Disease Visit [facility] Start: 05-30-2024 End: 08-29-2024 Comprehensive metabolic 2000 panel - Serum or Plasma COMPREHENSIVE METABOLIC PANEL Lab Routine Type 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, unspecified CKD stage, unspecified whether termite treater helper insulin use (HCC) Essential hypertension, benign Chronic kidney disease, stage 3a (HCC) Hyperlipidemia, unspecified hyperlipidemia type Expected: 05/30/2024 (Approximate), Expires: 08/29/2024 [facility] Work Phone: Comment on above: Expected: 05/30/2024 (Approximate), Expi res: 08/29/2024 Start: 05-30-2024 Covid-19 Vaccine () Covid-19 Vaccine () [facility] Comment on above: Postponed from 01/13/2023 (Declined at t his time) Start: 05-30-2024 End: 08-29-2024 Hemoglobin A1c in Blood HEMOGLOBIN A1C Lab Routine Type 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, unspecified CKD stage, unspecified whether group home insulin use (HCC) Expected: 05/30/2024 (Approximate), Expires: 08/29/2024 [facility] Comment on above: Expected: 05/30/2024 (Approximate), Expi res: 08/29/2024 Start: 05-30-2024 Hepatitis C screening Hepatitis C Screening [facility] Comment on above: Postponed from 1962 (Declined at t his time) Start: 05-30-2024 End: 08-29-2024 Lipid 1996 panel - Serum or Plasma LIPID PANEL BASIC Lab Routine Type 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, unspecified CKD stage, unspecified whether termite treater helper insulin use (HCC) Essential hypertension, benign Hyperlipidemia, unspecified hyperlipidemia type Expected: 05/30/2024 (Approximate), Expires: 08/29/2024 [facility] Comment on above: Expected: 05/30/2024 (Approximate), Expi res: 08/29/2024 Start: 05-30-2024 End: 08-29-2024 Microalbumin/Creatinine [Mass Ratio] in Urine ALBUMIN/CREATININE RATIO, URINE Lab Routine Type 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, unspecified CKD stage, unspecified whether termite treater helper insulin use (HCC) Expected: 05/30/2024 (Approximate), Expires: 08/29/2024 [facility] Comment on above: Expected: 05/30/2024 (Approximate), Expi res: 08/29/2024 Start: 05-30-2024 Pneumococcal Vaccine: 65+ (2 of 2 - PPSV23 or PCV20) Pneumococcal Vaccine: 65+ (2 of 2 - PPSV23 or PCV20) [facility] Comment on above: Postponed from 12/19/2019 (Declined at t his time) Start: 05-30-2024 End: 08-29-2024 Thyrotropin [Units/volume] in Serum or Plasma THYROID STIMULATING HORMONE Lab Routine Hypothyroidism, unspecified type Expected: 05/30/2024 (Approximate), Expires: 08/29/2024 [facility] Comment on above: Expected: 05/30/2024 (Approximate), Expi res: 08/29/2024 Start: 05-30-2024 End: 05-30-2024 Patient encounter procedure 05/30/2024 9:40 AM EST Office Visit Family [facility] [address] [place] [address] Kameron Caruso MD [address] [place] [address] 6 mo f/u Family [place] [facility] Comment on above: 6 mo f/u Start: 05-29-2024 Hemoglobin A1c measurement HbA1C [facility] Start: 05-16-2024 Creatinine measurement Serum Creatinine [facility] Start: 05-16-2024 Hepatitis B screening Urine Albumin:Creatinine Ratio [facility] Start: 05-16-2024 Hepatitis B surface antibody level LDL Cholesterol [facility] Start: 05-15-2024 Advance Directive Discussion Advance Directive Discussion [facility] Start: 01-14-2024 Influenza vaccination [facility] Start: 01-14-2024 [facility] Start: 01-04-2024 Glaucoma screening Dilated Retinal Exam [facility] Start: 01-04-2024 Hepatitis C antibody, confirmatory test Dilated Retinal Exam [facility] Start: 11-28-2023 End: 11-28-2023 Patient encounter procedure 11/28/2023 9:40 AM EDT Office Visit Family [place] [address] [place] [address] Kameron Caruso MD [address] [facility] [place] [address] 6 mo follow up [facility] [place] Comment on above: 6 mo follow up Start: 11-26-2023 ANNUAL PCP TEAM CHRONIC DISEASE VISIT ANNUAL PCP TEAM CHRONIC DISEASE VISIT [facility] Start: 11-26-2023 BP CONTROLLED (<130/80) BP CONTROLLED (<130/80) [facility] Start: 11-23-2023 Complete blood count Hemoglobin/Hematocrit [facility] Start: 11-23-2023 HEMOGLOBIN/HEMATOCRIT HEMOGLOBIN/HEMATOCRIT [facility] Start: 11-23-2023 Hepatitis B surface antibody level LDL CHOLESTEROL [facility] Start: 11-23-2023 SERUM CREATININE SERUM CREATININE [facility] Start: 11-14-2023 Hemoglobin A1c measurement HbA1C [facility] [place] Start: 05-27-2023 ANNUAL PCP TEAM CHRONIC DISEASE VISIT ANNUAL PCP TEAM CHRONIC DISEASE VISIT [facility] Start: 05-27-2023 COVID-19 VACCINE (2 - Booster for Alyssa series) COVID-19 VACCINE (2 - Booster for Alyssa series) [facility] Comment on above: Postponed from 09/17/2020 (Declined at t his time) Start: 05-27-2023 HEPATITIS C SCREENING HEPATITIS C SCREENING [facility] Comment on above: Postponed from 1962 (Declined at t his time) Start: 05-25-2023 Hemoglobin A1c/Hemoglobin.total in Blood HBA1C [facility] Start: 05-19-2023 HEMOGLOBIN/HEMATOCRIT HEMOGLOBIN/HEMATOCRIT [facility] Start: 05-19-2023 Hepatitis B surface antibody level LDL CHOLESTEROL [facility] Start: 05-19-2023 SERUM CREATININE SERUM CREATININE [facility] Start: 05-15-2023 Advance Directive Discussion Advance Directive Discussion [facility] Start: 05-15-2023 Behavioral Health Screening Behavioral Health Screening [facility] Start: 03-02-2023 ANNUAL PCP TEAM CHRONIC DISEASE VISIT ANNUAL PCP TEAM CHRONIC DISEASE VISIT [facility] Start: 01-13-2023 Covid-19 Vaccine ( season) Covid-19 Vaccine () [facility] Start: 01-13-2023 Influenza vaccination [facility] Start: 12-27-2022 Hepatitis C antibody, confirmatory test DILATED RETINAL EXAM [facility] Start: 11-24-2022 End: 01-24-2023 CBC panel - Blood by Automated count CBC Lab Routine Essential hypertension, benign Hypothyroidism, unspecified type Expected: 11/24/2022 (Approximate), Expires: 01/24/2023 [facility] Work Phone: Comment on above: Expected: 11/24/2022 (Approximate), Expi res: 01/24/2023 Start: 11-24-2022 End: 01-24-2023 Comprehensive metabolic 2000 panel - Serum or Plasma COMP METABOLIC PANEL Lab Routine Essential hypertension, benign Type 2 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, without long-term current use of insulin (HCC) Hyperlipidemia, unspecified hyperlipidemia type Expected: 11/24/2022 (Approximate), Expires: 01/24/2023 [facility] Work Phone: Comment on above: Expected: 11/24/2022 (Approximate), Expi res: 01/24/2023 Start: 11-24-2022 End: 01-24-2023 Hemoglobin A1c in Blood HGB A1C Lab Routine Type 2 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, without long-term current use of insulin (HCC) Expected: 11/24/2022 (Approximate), Expires: 01/24/2023 [facility] Work Phone: Comment on above: Expected: 11/24/2022 (Approximate), Expi res: 01/24/2023 Start: 11-24-2022 End: 01-24-2023 Lipid 1996 panel - Serum or Plasma LIPID PANEL BASIC Lab Routine Essential hypertension, benign Type 2 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, without long-term current use of insulin (HCC) Hyperlipidemia, unspecified hyperlipidemia type Expected: 11/24/2022 (Approximate), Expires: 01/24/2023 [facility] Work Phone: Comment on above: Expected: 11/24/2022 (Approximate), Expi res: 01/24/2023 Start: 11-24-2022 End: 01-24-2023 Thyrotropin [Units/volume] in Serum or Plasma TSH BLD Lab Routine Hypothyroidism, unspecified type Expected: 11/24/2022 (Approximate), Expires: 01/24/2023 [facility] Work Phone: Comment on above: Expected: 11/24/2022 (Approximate), Expi res: 01/24/2023 Start: 11-23-2022 3 comp foot exam completed DIABETIC FOOT EXAM [facility] Start: 11-23-2022 ANNUAL PCP TEAM CHRONIC DISEASE VISIT ANNUAL PCP TEAM CHRONIC DISEASE VISIT [facility] Start: 11-23-2022 Diabetic foot examination Diabetic Foot Exam [facility] Start: 11-20-2022 Hepatitis B screening URINE ALBUMIN:CREATININE RATIO [facility] Start: 11-20-2022 Hepatitis B surface antibody level LDL CHOLESTEROL [facility] Start: 11-20-2022 SERUM CREATININE SERUM CREATININE [facility] Start: 11-16-2022 Hemoglobin A1c/Hemoglobin.total in Blood HBA1C [facility] Start: 11-11-2022 Influenza vaccination INFLUENZA (#1) [facility] Comment on above: Postponed from 01/13/2022 (Declined at t his time) Start: 05-26-2022 End: 07-26-2022 CBC panel - Blood by Automated count CBC Lab Routine Essential hypertension, benign Stage 3b chronic kidney disease (HCC) Expected: 05/26/2022 (Approximate), Expires: 07/26/2022 [facility] Work Phone: Comment on above: Expected: 05/26/2022 [...] disease (HCC) Expected: 05/26/2022 (Approximate), Expires: 07/26/2022 [facility] Work Phone: Comment on above: Expected: 05/26/2022 (Approximate), Expi res: 07/26/2022 Start: 05-26-2022 End: 07-26-2022 Hemoglobin A1c in Blood HGB A1C Lab Routine Type 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, unspecified CKD stage, unspecified whether termite treater helper insulin use (HCC) Expected: 05/26/2022 (Approximate), Expires: 07/26/2022 [facility] Work Phone: Comment on above: Expected: 05/26/2022 (Approximate), Expi res: 07/26/2022 Start: 05-26-2022 End: 07-26-2022 Lipid 1996 panel - Serum or Plasma LIPID PANEL BASIC Lab Routine Essential hypertension, benign Hyperlipidemia, unspecified hyperlipidemia type Expected: 05/26/2022 (Approximate), Expires: 07/26/2022 [facility] Work Phone: Comment on above: Expected: 05/26/2022 (Approximate), Expi res: 07/26/2022 Start: 05-26-2022 End: 07-26-2022 Thyrotropin [Units/volume] in Serum or Plasma TSH BLD Lab Routine Hypothyroidism, unspecified type Expected: 05/26/2022 (Approximate), Expires: 07/26/2022 [facility] Work Phone: Comment on above: Expected: 05/26/2022 (Approximate), Expi res: 07/26/2022 Start: 05-23-2022 Hemoglobin A1c/Hemoglobin.total in Blood HBA1C [facility] Start: 05-18-2022 ANNUAL PCP TEAM CHRONIC DISEASE VISIT ANNUAL PCP TEAM CHRONIC DISEASE VISIT [facility] Start: 05-17-2022 Hepatitis B surface antibody level LDL CHOLESTEROL [facility] Start: 05-17-2022 SERUM CREATININE SERUM CREATININE [facility] Start: 05-15-2022 ADVANCE DIRECTIVE DISCUSSION ADVANCE DIRECTIVE DISCUSSION [facility] Start: 01-13-2022 Influenza vaccination [facility] Start: 01-11-2022 Hepatitis C antibody, confirmatory test DILATED RETINAL EXAM [facility] Start: 11-14-2021 Hemoglobin A1c/Hemoglobin.total in Blood HBA1C [facility] Start: 11-06-2021 Screening for malignant neoplasm of breast [facility] Start: 11-05-2021 3 comp foot exam completed DIABETIC FOOT EXAM [facility] Start: 11-05-2021 Adult depression screening assessment DEPRESSION SCREENING [facility] Start: 11-04-2021 Hepatitis B screening URINE ALBUMIN:CREATININE RATIO [facility] Start: 10-15-2021 Hepa vaccine adult dose for intramuscular use HEPATITIS A VACCINE ADULT IM Immunization/Injection Routine Need for vaccination Expected: 10/15/2021 [facility] Work Phone: Comment on above: Expected: 10/15/2021 Start: 10-15-2021 Tdap vaccine 7 yrs/> im TDAP VACCINE AGE 7+ IM Immunization/Injection Routine Need for vaccination Expected: 10/15/2021 [facility] Work Phone: Comment on above: Expected: 10/15/2021 Start: 05-15-2021 ADVANCE DIRECTIVE DISCUSSION ADVANCE DIRECTIVE DISCUSSION [facility] Start: 05-15-2021 DEPRESSION ASSESSMENT DEPRESSION ASSESSMENT [facility] Start: 10-23-2020 PNEUMOCOCCAL: 65+ (2 - PPSV23 if available, else PCV20) PNEUMOCOCCAL: 65+ (2 - PPSV23 if available, else PCV20) [facility] Start: 10-23-2020 PNEUMOCOCCAL: 65+ (2 - PPSV23 or PCV20) PNEUMOCOCCAL: 65+ (2 - PPSV23 or PCV20) [facility] Start: 10-16-2020 HEMOGLOBIN/HEMATOCRIT HEMOGLOBIN/HEMATOCRIT [facility] Start: 09-17-2020 COVID-19 VACCINE (2 - Booster for Alyssa series) COVID-19 VACCINE (2 - Booster for Alyssa series) [facility] Start: 12-19-2019 Pneumococcal vaccination [facility] Start: 12-19-2019 Pneumococcal Vaccine: 65+ (2 - PPSV23 or PCV20) Pneumococcal Vaccine: 65+ (2 - PPSV23 or PCV20) [facility] Start: 12-19-2019 PNEUMOCOCCAL: 65+ (2 - PPSV23 or PCV20) PNEUMOCOCCAL: 65+ (2 - PPSV23 or PCV20) [facility] Start: 11-08-2019 Screening for malignant neoplasm of colon [facility] Start: 10-26-2019 [facility] Start: 01-13-2019 Influenza vaccination Flu vaccine (#1) [place], [place] Start: 12-23-2018 Annual Wellness Visit (AWV) Annual Wellness Visit (AWV) [place] Start: 2009 DEXA (modify frequency per FRAX score) DEXA (modify frequency per FRAX score) [place] Start: 2009 Pneumococcal 65+ years Vaccine (1 of 1 - PPSV23) Pneumococcal 65+ years Vaccine (1 of 1 - PPSV23) [place] Start: 2009 Pneumococcal 65+ years Vaccine (1 of 2 - PCV13) Pneumococcal 65+ years Vaccine (1 of 2 - PCV13) [place] Start: 10-26-2007 Annual Wellness Visit (AWV) Annual Wellness Visit (AWV) [place] Start: 2004 Hepatitis B Vaccine (1 of 3 - Risk 3-dose series) Hepatitis B Vaccine (1 of 3 - Risk 3-dose series) [facility] Start: 2004 RSV Vaccine (1 - 1-dose 60+ series) RSV Vaccine (1 - 1-dose 60+ series) [facility] Start: 10-26-1999 Screening for osteoporosis DEXA (modify frequency per FRAX score) [place] Start: 1994 Breast cancer screen Breast cancer screen [place] Start: 1994 Colon cancer screen colonoscopy Colon cancer screen colonoscopy [place] Start: 1994 Screening for malignant neoplasm of breast Breast cancer screen [place] Start: 1994 Screening for malignant neoplasm of colon Colon cancer screen colonoscopy [place] Start: 1994 Shingles Vaccine (1 of 2) Shingles Vaccine (1 of 2) [place] Start: 1984 Lipid screen Lipid screen [place] Start: 1965 Screening for malignant neoplasm of cervix [facility] Start: 10-26-1963 DTaP/Tdap/Td vaccine (1 - Tdap) DTaP/Tdap/Td vaccine (1 - Tdap) [place] Start: 10-26-1963 Third diphtheria, tetanus and acellular pertussis (DTaP) vaccination [facility] Start: 10-26-1963 Urine microalbumin profile [facility] Start: 1962 BP CONTROLLED (<130/80) BP CONTROLLED (<130/80) [facility] Start: 1962 HEPATITIS C SCREENING HEPATITIS C SCREENING [facility] Start: 1954 Lipid panel Lipid screen [place], [place] Start: 1944 Creatinine measurement Creatinine monitoring [place], [place] Start: 1944 Creatinine monitoring Creatinine monitoring [place], [place] Start: 1944 Hepatitis C screen Hepatitis C screen [place], [place] Start: 1944 Hepatitis C screening [facility] Start: 1944 Potassium monitoring Potassium monitoring [place] Start: 1944 Screening for osteoporosis [facility] Start: 1944 Tetanus vaccination [facility] End: 01-09-2019 Blood glucose - POCT Blood glucose - POCT Point of Care Testing Routine One Time for 1 Occurrences starting 01/09/2019 until 01/09/2019 [place] Comment on above: One Time for 1 Occurrences starting 12/14 until 01/09/2019 ECG COMPLETE [facility] Comment on above: Ordered: 05/31/2024 End: 05-31-2025 Echocardiography ECHO Cardiology Routine Atrial fibrillation, unspecified type (HCC) 1 Occurrences starting 05/31/2024 until 05/31/2025 [facility] Comment on above: 1 Occurrences starting 05/31/2024 until 05/31/2025 Patient referral [facility] Work Phone: End: 01-09-2019 Pulse Oximetry Spot Check Pulse Oximetry Spot Check Respiratory Care Routine One Time for 1 Occurrences starting 01/09/2019 until 01/09/2019 [place] Comment on above: One Time for 1 Occurrences starting 12/14 until 01/09/2019 End: 08-02-2024 PV FLUOROSCOPY OR [facility] End: 08-02-2024 Standard ECG [facility] Immunizations Immunization Date Immunization Notes Care Provider Paramjit hassan 07-23-2020 SARS-CoV-2 (COVID-19 ) Ad26 vaccine, recombinant SILVINO HA DO [facility] Comment on above: Result Comment: 2024: [id number] 02-27-2020 influenza, high dose seasonal, preservative-free Kameron Caruso MD Work Phone: [facility] 02-27-2020 influenza virus vaccine, unspecified formulation Kameron Caruso MD Work Phone: [facility] 10-24-2019 pneumococcal conjuga te vaccine, 13 valent Kameron Caruso MD Work Phone: [facility] 10-24-2019 zoster vaccine recombinant Kameron Caruso MD Work Phone: [facility] 07-25-2019 influenza virus vaccine, unspecified formulation SILVINO HA DO [facility] 07-25-2019 influenza, seasonal, injectable Kameron Caruso MD Work Phone: [facility] 07-25-2019 zoster vaccine recombinant Kameron Caruso MD Work Phone: [facility] 04-13-2015 influenza virus vaccine, unspecified formulation SILVINO SCHEBEULAH DO [facility] 05-01-2014 influenza virus vaccine, unspecified formulation SILVINO DAE DO [facility] 05-01-2014 influenza, high dose seasonal, preservative-free Kameron Caruso MD Work Phone: [facility] 02-22-2012 influenza virus vaccine, unspecified formulation Kameron Caruso MD Work Phone: [facility] Work Phone: 03-19-2007 influenza virus vaccine, unspecified formulation Kameron Caruso MD Work Phone: [facility] Work Phone: Payers Date Payer Category Payer Medicare [id number] 2024 Unknown [id number] 2024 Self-pay 2018 Medicare [employer]-MED[employer] RE ADVANTAGE [facility]-MEDIC[facility] ADVANTAGE xxxxxxxxxxx 2018-Present [phone] [address] [place] [address] xxxxxxxxxxx [id number] 2018 Unknown [id number] 2013 Medicare [employer] [id number] 2013-Present [phone] [address] [place] [address] O [id number] 2013 Medicare [id number] 2013 Medicare (Managed Care) 1.2. [id number] 2013 Medicare [id number] 1944 Unknown [id number] [id number] .627 1944 Unknown [id number] 2.840.1.559541.3.579.2 .732 1944 Unknown [id number] 2.840.1.974179.3.579.2 .594 1944 Unknown [id number] 2.840.1.813480.3.579.2 .594 1944 Unknown [id number] 2.16840.1.664651.3.579.2 .627 Unknown [id number] 2.16840.1.185736.3.579.2 .462 Unknown [id number] 2.16840.1.225613.3.579.2 .462 Unknown [id number] 2.16840.1.916895.3.579.2 .462 Unknown [id number] 2.16.840.1.848734.3.579.2 .462 Unknown [id number] 2.16.840.1.862626.3.579.2 .462 Unknown [id number] 2.16.840.1.546856.3.579.2 .462 Unknown [id number] 2.16.840.1.031271.3.579.2 .462 Unknown [id number] 2.16.840.1.826599.3.579.2 .462 Unknown [id number] 2.16.840.1.028681.3.579.2 .462 Unknown [id number] 2.16.840.1.322329.3.579.2 .462 Unknown [id number] 2.16.840.1.009406.3.579.2 .462 Unknown [id number] 2.16.840.1.602511.3.579.2 .462 Unknown [id number] 2.16.840.1.974461.3.579.2 .462 Unknown [id number] 2.16.840.1.428889.3.579.2 .462 Social History Date Type Detail Facility Start: 01-09-2019 End: 08-02-2024 Tobacco smoking status COIS Never smoker [facility] Start: 01-09-2019 End: 11-25-2022 Alcohol intake Never [facility] Work Phone: Start: 12-24-2018 History SDOH Alcohol Frequency 1 [place], [place] Start: 1945 Sex Assigned At Not on file [place] Start: 10-16-2019 Alcohol intake Lifetime non-d hortencia (finding) [place] Exposure to SARS-CoV -2 (event) Unable to assess [place] Start: 05-18-2021 End: 06-26-2024 Alcohol intake Current non-drinker of alcohol (finding) [facility] Start: 11-13-2021 End: 03-02-2022 Exposure to SARS-CoV-2 (event) Not sure [facility] Start: 02-02-2011 End: 03-02-2022 Tobacco use and exposure Smokeless tobacco non-user [facility] Start: 11-25-2022 End: 11-28-2023 History of Social function [facility] Work Phone: Adult Depression Screening Assessment 0 [facility] Work Phone: Start: 06-22-2005 End: 08-02-2024 Sex Female (finding) [facility] Start: 1945 Sex Assigned At Female [facility] Sexual Orientation [facility] Medical Equipment Procedure Code Equipment Code Equipment Original Text Equipment Identifier Dates [id number], [id number], [id number] Start: 11-30-2020 End: 04-08-2023 Comment on above: [...] Facility 09-09-2024 Functional Status Room check performed [facility] 09-09-2024 Functional Status [facility] 09-09-2024 Functional Status Skin Care Prev entative Intervention(s) heel(s)s elevated [facility] 09-08-2024 Functional Status [facility] 09-08-2024 Functional Status [facility] 09-06-2024 Functional Status 11pm-7am [facility] 09-06-2024 Functional Status Antiembolism S tocking On/Re-applied bilateral knee high [facility] 09-05-2024 Functional Status Oral Care Maximum wilfred tance [facility] 09-05-2024 Functional Status [facility] 09-05-2024 Functional Status Done [facility] 09-04-2024 Functional Status [facility] 09-04-2024 Functional Status [facility] 09-03-2024 Functional Status NPO Status Maintained [facility] [place] 09-03-2024 Functional Status None [facility] 09-03-2024 Functional Status [facility] 08-29-2024 Functional Status [facility] 08-29-2024 Functional Status [facility] 08-27-2024 Functional Status Orthotics, Dev ice Worn Per Schedule Yes [facility] 08-27-2024 Functional Status [facility] 08-26-2024 Functional Status [facility] 08-23-2024 Functional Status [facility] 08-23-2024 Functional Status Breakfast Percent 25 [facility] 08-20-2024 Functional Status [facility] 08-19-2024 Functional Status [facility] 08-16-2024 Functional Status Single level h ome, basement laundry [facility] 08-16-2024 Functional Status Outside Stairs Rail Rail on left going up [facility] 08-15-2024 Functional Status Sensory Defici ts Speech deficit [facility] 10-14-2014 Are you deaf, or do you have serious difficulty hearing No [facility] 10-14-2014 Are you blind, or do you have serious difficulty seeing, even when wearing glasses No [facility] 10-14-2014 Do you have serious difficulty walking or climbing stairs No [facility] 10-14-2014 Do you have difficul ty dressing or bathing No [facility] 10-14-2014 Because of a physica l, mental, or emotional condition, do you have difficulty doing errands alone such as visiting a physician's office or shopping No [facility] Mental Status Date Assessment Result Facility 09-09-2024 Mental Status Does not interact [facility] 09-08-2024 Mental Status [facility] 09-08-2024 Mental Status [facility] 08-02-2024 Cognitive function Awake;Alert;F ollows Commands [facility] Work Phone: 10-14-2014 Because of a physica l, mental, or emotional condition, do you have serious difficulty concentrating, remembering, or making decisions No [facility] Clinical Notes 11-03-2020 to 09-09-2024 Note Date [...] KAMERON CARUSO MD When:Within 3-7 days Where:[address] [place] [address]- Additional Information: Please schedule follow up PCP appointment for after discharge from SNF, Bring discharge instructions with you Follow Up with RIMMA POWERS MD When:10/08/2024 04:00 PM EDT Where:[facility] ([address], [place]) Additional Information: Neurosurgeon The Following Activity and [...] standard right Seat cushion, 99 month(s), [facility] [id number], 09/02/24 8:22:00 EDT Transfer of Care Wound [...] 08/04/2017 Document Revised: 05/04/2018 Document Reviewed: 08/04/2017 [employer] Patient Education 2020 [employer] Additional Information VACCINATE! IT SAVES LIVES! Members of the community who have not yet received the COVID-19 vaccine and would like to receive it can visit one of [facility] vaccine clinics. There are many vaccine clinic locations within the State. For locations and available times, please visit [email or web address] It is important to note that some COVID mobile vaccine clinics are held outdoors and may be canceled in rainy or stormy conditions. To learn more about pediatric vaccinations (ages 5-11), we invite you to visit the [facility] webpage. https://www.[employer].org/pages /6309-Sxigw-Fctaqmwyxih-Frequently-A sked-Questions.html To learn more about the COVID-19 vaccine, we invite you to visit the CDC website for a list of frequently asked questions.https://www.cdc.gov/woodard virus/2019-ncov/vaccines/faq.html [facility] Patient Portal Access Instructions: Stay connected with your healthcare team and access your personal medical information anytime with the [facility] Patient Portal. Please follow the directions below to create your [facility] account: 1.Access the email account you provided upon registration to the hospital/physician office.2.Look for an invitation email from [facility].3.Open the email and access the invitation link: Accept Invitation to [facility].4.Fill in the required richards to create your account. To access your account, visit [employer] TechnologiesOneChart. Click the blue button labeled "Access Patient [...] you will allow to register on the [facility] Patient Portal for access to your information. You can also access the [facility] Patient Portal on the [facility] dahlia. Simply click on "Patient Portal" and then log into your account. If you would like to receive a full copy of your medical records, please contact the [facility] Medical Records Department by calling [phone], Monday through Monday between 8 a.m. and [...] Call your local pharmacy or go to [email or web address] to find one close to you.3.Make use of household items: Use cat litter or old coffee grounds to dispose medications if other options are not available. Mix your drugs with these household products, seal them in an airtight container and throw it into the garbage. Call [facility]: [phone] to be sure your drugs can be [...] aware that I should contact my doctor. Patient/Waiter/Waitress First Class Signature: ___ Date/Time: Relationship to Patient: _ [...] KAMERON CARUSO MD When:Within 3-7 days Where:[address] [place] [address]- Additional Information: Please schedule follow up PCP appointment for after discharge from SNF, Bring discharge instructions with you Follow Up with RIMMA POWERS MD When:10/08/2024 04:00 PM EDT Where:[facility] ([address], [place]) Additional Information: Neurosurgeon The Following Activity and [...] , standard right Seat cushion, 99 month(s), [id number], 09/02/24 8:22:00 EDT Transfer of Care Wound [...] 08/04/2017 Document Revised: 05/04/2018 Document Reviewed: 08/04/2017 Else[employer] Patient Education 2020 [employer]. Additional Information VACCINATE! IT SAVES LIVES! Members of the community who have not yet received the COVID-19 vaccine and would like to receive it can visit one of [facility] vaccine clinics. There are many vaccine clinic locations within the [facility]. For locations and available times, please visit [email or web address] It is important to note that some COVID mobile vaccine clinics are held outdoors and may be canceled in rainy or stormy conditions. To learn more about pediatric vaccinations (ages 5-11), we invite you to visit the [facility] webpage. https://www.[employer].org/pages /8819-Cuqwo-Qqpnmytoqjh-Frequently-A sked-Questions.html To learn more about the COVID-19 vaccine, we invite you to visit the CDC website for a list of frequently asked questions.https://www.cdc.gov/woodard virus/2019-ncov/vaccines/faq.html [facility] Patient Portal Access Instructions: Stay connected with your healthcare team and access your personal medical information anytime with the [facility] Patient Portal. Please follow the directions below to create your [facility] account: 1.Access the email account you provided upon registration to the hospital/physician office.2.Look for an invitation email from [facility].3.Open the email and access the invitation link: Accept Invitation to [facility].4.Fill in the required richards to create your account. To access your account, visit [employer] Media TechnologiesOneChart. Click the blue button labeled "Access Patient [...] you will allow to register on the [facility] Patient Portal for access to your information. You can also access the [facility] Patient Portal on the [facility] dahlia. Simply click on "Patient Portal" and then log into your account. If you would like to receive a full copy of your medical records, please contact the [facility] Medical Records Department by calling [phone], Monday through Monday between 8 a.m. and [...] Call your local pharmacy or go to [email or web address]/[email or web address] to find one close to you.3.Make use of household items: Use cat litter or old coffee grounds to dispose medications if other options are not available. Mix your drugs with these household products, seal them in an airtight container and throw it into the garbage. Call [facility]: [phone] to be sure your drugs can be [...] aware that I should contact my doctor. Patient/Waiter/Waitress First Class Signature: ___ Date/Time: Relationship to Patient: _ Witness Name/Signature: Date/Time: Tyleranny [place] 09-09-2024 Physical medicine and rehab Discharge summary [...] in discharge valuation. She was [facility] from [facility] stay 08/02 - 08/15 who has a history of CAD, DM2, atrial fibrillation and hypertension who presented to the ER after noting left-sided weakness and slurred speech. Originally presented to [facility] where CT head was obtained showing no [...] self-care assistance needs decision made to request jail facility. Approval is requested. Patient was to [...] Ordered -- 08/15/24 17:18:00 EDT, AMI HEATON APRN-FUN HOUSE ATTENDANT, [facility] per policy Physical Exam Vitals [...] oral tablet)1 tab(s) PEG tube every day. [id number] Microgram PEG tube once a day. metoprolol [...] KAMERON CARUSO MD When:Within 3-7 days Where:[address] [place] [address]- Additional Information: Please schedule follow up PCP appointment for after discharge from SNF, Bring discharge instructions with you Follow Up with RIMMA POWERS MD When:10/08/2024 04:00 PM EDT Where:[facility] ([address], [place]) Additional Information: Neurosurgeon Follow Up Appointments No qualifying data available. Follow Up Labs/Studies Discharge Labs No Follow-up Labs Discharge Studies No Follow-up Studies Discharge Diet No qualifying data available. Discharge Activity No qualifying data available. Condition on Discharge Stable Discharge Disposition [facility] facility Information Provided To Patient and family Time Spent Greater than 35 minutes Digitally Signed by SILVINO HA DO on 09/09/2024 01:46 PM Tyleranny Dyelawn 09-09-2024 Nurse Progress note Nursing GG [...] Rob Alarcon RN on 09/08/2024 05:39 PM Tyleranny Garcia 09-08-2024 Nurse Progress note Pt had [...] and slurred speech. She originally presented to [facility] with CT of the head was obtained showed no acute hemorrhage or large territory stroke. CTA showed mid right M1 occlusion however patient was not a TNK candidate. She was then transferred to a [facility] for further management. CT of head [...] 80 mg 1 tab(s), PEG, Daily balsam [place]-castor oil topical 87 mg-788 mg/g oint 60g [...] Rate64(SEP 05 16:46)64(SEP 05 16:46)85(SEP 05 09:40) IZM583(SEP 05 16:36)138(SEP 05 16:36)H 158(SEP 05 09:52) [...] SILVINO HA DO on 09/06/2024 12:34 PM [facility] 09-05-2024 Hospital Discharge instructions Patient Education 09/05/2024 [...] 08/04/2017 Document Revised: 05/04/2018 Document Reviewed: 08/04/2017 [employer] Patient Education 2020 Giveit[employer]. Follow Up Care 08/15/2024 08:51:25 With:RIMMA POWERS MD Address: [facility] ([address], [place]) When:10/08/2024 16:00:00 Comments:Neurosurgeon With:JONNIE BANSAL MD Address: [facility] When: Unknown Comments:GI, No appointment needed until PEG is ready to be removed or concerns arise With:KAMERON CARUSO MD Address: [address] [place] [address]- When:3-7 days Comments:Please schedule follow up PCP appointment for after discharge from SNF, Bring discharge instructions with you Tyler Garcia 09-05-2024 Note Subjective Patient seen this morning [...] less than 3 seconds. Ongoing hemiparesis VITALS ApcekhGmnaTFKiermHPMdG2DUH2VrqsMh(kg ) 09/05 09:5236.3--128632JY 09/05 09:40----85----RA 09/04 23:3236.6--962808VF 09/04 21:2436.5--058805OZ 09/04 16:01----72----RA 24 Hr Tmax: 36.6 at [...] Start: 08/16/24 21:00:00 EDT, Dose = 1 dahila, Topical, qHS, Apply to: Heels, Ointment, 08/16/24 [...] SBP (mmHg) < 110, 1st dose location: [facility], , 08/15/24 17:09:00 EDT Active PRN Meds: Al [...] 2 minutes, REPEAT x1., 1st dose location: [facility], 0, 08/15/24 1... glucose (Dextrose 50% IV [...] None Problems (6) CVA (cerebral vascular accident) (139772945) Diabetes mellitus (672319721) Dysphagia (89591244) Hyperlipidemia (63085167) Hypertension (1060327954) Osteoarthritis (2929794302) ASSESSMENT/PLAN: Right basal ganglia hemorrhage, status post thrombectomy with revascularization follow-up appointment with neurosurgery on 10/08. Continue work with physical and Occupational Therapy with goal to return home at discharge. reports that referrals have been sent to jail facilities yesterday. Currently has 4 options in [...] for , and in the presence of Cahterine Newman APRN ICatherine APRN, personally performed the services described in this documentation, as scribed byDestiny RN in my presence and it is both accurate and complete. Digitally Signed by CATHERINE NEWMAN on 09/05/2024 04:55 PM [facility] Physical medicine and rehab Progress note [...] area Neuro: Left upper extremity hemiparesis VITALS TlgxmtOtilFROidbsGFYsS8QOM4AutpKb(kg ) 09/04 23:3236.6--358560RW 09/04 21:2436.5--894215BO 09/04 16:01----72----RA 09/04 12:10--------97RA 09/04 10:5435.9--677125FV 24 Hr Tmax: 36.6 at 09/04 23:32 [...] SBP (mmHg) < 110, 1st dose location: [facility], 1, 08/15/24 17:09:00 EDT Active PRN Meds: [...] 2 minutes, REPEAT x1., 1st dose location: [facility], 0, 08/15/24 1... glucose (Dextrose 50% IV [...] None Problems (6) CVA (cerebral vascular accident) (102531843) Diabetes mellitus (796798172) Dysphagia (26857361) Hyperlipidemia (04521171) Hypertension (8354116265) Osteoarthritis (0119894482) ASSESSMENT/PLAN: Acute right basal ganglia hemorrhage with [...] and in the presence of Dr. Hutton. Dr. Brennen Roe, personally performed the services described in this documentation, as scribed byJhonatan RN in my presence and it is both accurate and complete. Digitally Signed by NANDO HUTTON DO on 09/05/2024 10:12 AM Tyler Warnern 09-04-2024 Physical medicine and rehab Progress note [...] and slurred speech. She originally presented to [facility] with CT of the head was obtained showed no acute hemorrhage or large territory stroke. CTA showed mid right M1 occlusion however patient was not a TNK candidate. She was then transferred to a [facility] for further management. CT of head [...] 80 mg, 1 tab(s), PEG, Daily. balsam [place]-castor oil topical: 1 dahlia, Topical, qHS. docusate: [...] Rate64(SEP 03 15:52)64(SEP 03 15:52)90(SEP 03 08:28) HCL183(SEP 04 05:38)112(SEP 04 05:38)127(SEP 03 08:00) DBP70(SEP [...] area Neuro: Left upper extremity hemiparesis VITALS KgpnrjEqfiJNDiryuTQEiD5IQF8PjhjKc(kg ) 09/03 21:4136.4--511971BI 09/03 15:52----64----RA 09/03 08:46 RA 09/03 08:28----90----RA 09/03 08:0036.4--329457TW 24 Hr Tmax: 36.4 at 09/03 21:41 [...] tab(s), PEG, Daily, 08/15/24 17:09:00 EDT balsam [place]-castor oil topical (Venelex 788 mg-87 mg/g topical [...] SBP (mmHg) < 110, 1st dose location: [facility], 1, 08/15/24 17:09:00 EDT oxybutynin (oxybutynin 5 [...] 2 minutes, REPEAT x1., 1st dose location: [facility], 0, 08/15/24 1... glucose (Dextrose 50% IV [...] None Problems (6) CVA (cerebral vascular accident) (962327907) Diabetes mellitus (342117951) Dysphagia (88739470) Hyperlipidemia (86340394) Hypertension (4946881844) Osteoarthritis (3019304622) ASSESSMENT/PLAN: Acute right basal ganglia hemorrhage with [...] sugars closely. [facility] with ice chips only, [...] HUTTON DO on 09/05/2024 08:57 AM Tyler Warnern 09-03-2024 Note Subjective Patient states that she [...] area Neuro: Left upper extremity hemiparesis VITALS BiaervJqyaHTTqpzoUQReL6EDH2FfdpLo(kg ) 09/03 00:2636.3--613296EF 09/02 21:5136.2--212872UR 09/02 16:56----88--98RA 09/02 10:40 RA 09/02 09:0936.0--616491CU 24 Hr Tmax: 37.0 at 09/02 05:55 [...] SBP (mmHg) < 110, 1st dose location: [facility], , 08/15/24 17:09:00 EDT oxybutynin (oxybutynin 5 [...] 2 minutes, REPEAT x1., 1st dose location: [facility], 0, 08/15/24 1... glucose (Dextrose 50% IV [...] None Problems (6) CVA (cerebral vascular accident) (050570705) Diabetes mellitus (443229780) Dysphagia (48159938) Hyperlipidemia (67746815) Hypertension (8308680706) Osteoarthritis (4765213703) ASSESSMENT/PLAN: Acute right basal ganglia hemorrhage with [...] w/o Contrast Brenda MCCLELLAN MD; Auth (Verified) [id number] ORIGINAL HISTORY: Lethargy COMPARISON: No TECHNIQUE: Routine [...] 08/30/2024 10:09 AM EDT Marya with Tyler [facility] notified. [facility]04-18-2025 Miscellaneous Notes* Telephone Encounter - Fouzia Miller LPN - 08/30/2024 10:09 AM EDT Marya with yTler [facility] notified. * Telephone Encounter - Mj Glover APRN.FUN HOUSE ATTENDANT - 08/30/2024 9:19 AM EDT Please let know that Dr. Caruso's team will follow HH orders. Okay to proceed. Mj Glover APRN.GARRETT * Telephone Encounter - Jaiden Paulino RN - 08/30/2024 9:07 AM EDT [facility] reports patient was in [facility] with dx: stroke, and transferred to [facility]. [facility] to home with [facility] SN PT OT ST & HHAide. Asking if pcp agreeable to follow for HHC. Please phone Marya with verbal: [phone] documented in this encounterThe [facility]04-[facility] Telephone encounter Note * Telephone Encounter - Mj Glover APRN.CNP - 08/30/2024 9:19 AM EDT Please let know that Dr. Caruso's team will follow HH orders. Okay to proceed. Mj Glover APRN.CNP [facility]04-18-2025 Telephone encounter Note* Telephone Encounter - Jaiden Paulino RN - 08/30/2024 9:07 AM EDT [facility] reports patient was in [facility] with dx: stroke, and [facility]. [facility]24 to home with [facility] SN PT OT ST & HHAide. Asking if pcp agreeable to follow for HHC. Please phone Marya with verbal: [phone] [facility]04-14-2025 Note REFERRING PHYSICIAN: Silvino Ha DO. CONSULTING PSYCHOLOGIST: Matthew Gibson, PhD. REASON FOR REFERRAL: Neuropsychological exam. HISTORY OF PRESENT ILLNESS: Ms. Acuna is a 78-year-old right-handed white female admitted to [facility] from [facility] on 08/15/2024 after developing left-sided weakness and slurred speech. Initially seen at [facility] where brain CT was negative.CTA then showed [...] mild concussions suffered after a career in [employer]. No residual deficits reported. 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 MENTAL HEALTH HISTORY: No [...] of NPO. and Mrs. Acuna live in [place]. 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 She has a high school diploma from her hometown in [place], [place]. TEST RESULTS: I used the Cognistat, [...] be determined. MATTHEW GIBSON, PhD GM/NTS JOB#: [id number] DICTATION ID#: [id number] Digitally Signed by MATTHEW GIBSON PhD on 08/27/2024 08:21 AM Tyler [id number] Note* Exam Date Time Procedure Performing Provider Status 08/25/24 1:46 PM XR Hand and Wrist 6 Views Left Buck DUNNE DO; Auth (Verified) [id number] ORIGINAL EXAMINATION: 3 XRAY VIEWS OF THE [...] Shoulder Minimum 2 Views Left JAMAR DUNNE ; Auth (Verified) [id number] ORIGINAL EXAMINATION: TWO XRAY VIEWS OF THE [...] Humerus Minimum 2 Views Left JAMAR DUNNE ; Auth (Verified) [id number] ORIGINAL EXAMINATION: TWO XRAY VIEWS OF THE [...] Report By: Padilla Barrera Electronically signed By Jaamr Dunne DO Dictated Date: 08/25/2024 1:52:15 PM Prelim Date: 08/25/2024 1:55:41 PM Sign Date: 08/25/2024 2:26:11 PM Ordering Provider: JACKLYN Garcia04-06-2025 Note* Exam Date Time Procedure Performing Provider Status 08/18/24 3:08 PM XR Chest 1 View Contributor_system, FUJ I; Auth (Verified) [id number] ORIGINAL EXAMINATION: ONE XRAY VIEW OF THE [...] Huey Lynn MD Preliminary Report By: Huey Lnyn MD Electronically signed By Huey Lynn MD Dictated Date: 08/18/2024 3:13:42 PM Prelim Date: 08/18/2024 3:14:15 PM Sign Date: 08/18/2024 3:14:15 PM Ordering Provider: NANDO Garcia04-04-2025 Evaluation + Plan noteExtracted from: Title:Clinical Document Author:EZEQUIEL HUSTON RN-FUN HOUSE ATTENDANT Date:08/16/24 Acute Inpatient Rehab Histor y and Physical Date of Service: 08/16/2024 Date of Admission: 08/15/2024 Attending Physician: Dr. Ha [employer] 1.1 left body involvement, right brain stroke Etiologic Diagnosis Hemorrhagic infarct involving right basal ganglia, mass effect with effacement of right lateral ventricle, tiny infarct in right cerebellum History of Present Illness 78-year-old female noted to home in inpatient rehab from [facility] stay 08/02 - 08/15 who is past medical history of coronary artery disease, diabetes mellitus type 2, atrial relation, hypertension, osteoarthritis, and hyperlipidemia who presented to the emergency room with noted left-sided weakness and slurred speech. She originally presented to [facility] with CT of the head was obtained showed no acute hemorrhage or large territory stroke. CTA showed mid right M1 occlusion however patient was not a TNK candidate. She was then transferred to a [facility] for further management. CT of head [...] feedings. Patient deemed medically stable transferred to [facility] for physical and occupational [...] with spouse, first- floor set up. Primary Earth Observations Chief Scientist: Self. Safe place to go: Yes. Lives [...] Rate80(AUG 15 20:06)80(AUG 15 20:06)80(AUG 15 20:06) LIQ274(AUG 16 00:03)128(AUG 16 00:03)140(AUG 15 17:47) DBP76(AUG 16 00:03)76(AUG 16 00:03)80(AUG 15 17:47) 36hr Labs 08/15 1805 Blood Glucose, Hyyapsifw376O Blood Glucose, Yfbhfqxqn701L Blood Glucose TSee Flowsheet Assessment/Plan Debility and [...] and it is both accurate and complete. Tyler [facility] 04-04-2025 Physical medicine and rehab Consult note INPATIENT REHAB MEDICAL CONSULT DATE OF ADMISSION: 08/16/2024 CC: Acute right basal hemorrhage HISTORY OF PRESENT ILLNESS: This is a 78-year-old female admitted to [facility] unit from [facility] stay 08/02 - 08/15 who has a history of CAD, DM2, atrial fibrillation and hypertension who presented to the ER after notingleft-sided weakness and slurred speech. Originally presented to [facility] where CT head was obtained showing no [...] was deemed medically stable and transferred to [facility] for physical and occasional [...] Rate80(AUG 15 20:06)80(AUG 15 20:06)80(AUG 15 20:06) AVA591(AUG 16 00:03)128(AUG 16 00:03)140(AUG 15 17:47) DBP76(AUG [...] reviewed. 36hr Labs 08/15 1805 Blood Glucose, Cbrbeejwb594Q Blood Glucose, Hiatoemtk950V Blood Glucose TSee Flowsheet ASSESSMENT AND PLAN: [...] will follow during acute rehabilitation stay at [facility] with the goal of [...] by CATHERINE NEWMAN on 08/17/2024 04:53 PM [id number] Physical medicine and rehab History and physical [...] noted to home in inpatient rehab from [facility] stay 08/02 -08/15 who is past medical history of coronary artery disease, diabetes mellitus type 2, atrial relation, hypertension, osteoarthritis, and hyperlipidemia who presented to the emergency room with noted left-sided weakness and slurred speech. She originally presented to [facility] with CT of the head was obtained showed no acute hemorrhage or large territory stroke. CTA showed mid right M1 occlusion however patient was not a TNK candidate. [facility] showed [...] feedings. Patient deemed medically stable transferred to [facility] for physical and occupational [...] with spouse, first- floor set up. Primary Earth Observations Chief Scientist: Self. Safe place to go: Yes. Lives [...] Rate80(AUG 15 20:06)80(AUG 15 20:06)80(AUG 15 20:06) JJN695(AUG 16 00:03)128(AUG 16 00:03)140(AUG 15 17:47) DBP76(AUG 16 00:03)76(AUG 16 00:03)80(AUG 15 17:47) 36hr Labs 08/15 1805 Blood Glucose, Ngzxwxmmm733U Blood Glucose, Lkynihdey291X Blood Glucose TSee Flowsheet Assessment/Plan Debility and [...] EZEQUIEL HUSTON on 08/22/2024 05:17 AM Tyler [id number] Miscellaneous Notes* Nursing Notes - Robson Steel [...] pacing over x3-5 sessions Outcome: Ongoing Problem: MASSAGE OPERATOR - Cognition Goal: Orientation Log - Patient [...] Progressing * Plan of Care - Prema Rosales, PT - 08/14/2024 9:15 AM EDT Problem: [...] pacing over x3-5 sessions Outcome: Ongoing Problem: MASSAGE OPERATOR - Cognition Goal: Orientation Log - Patient [...] Care Goal: Plan of Care Review 08/10/2024 180 by Abigail Trinh RN Outcome: Progressing 08/10/2024 180 by Abigail Trinh RN Outcome: Progressing Goal: Patient-Specific Goal (Individualized) 08/10/2024 180 by Abigail Trinh RN Outcome: Progressing 08/10/2024 [...] buried bumper syndrome. - If used termite treater helper, initial PEG should be changed in 6-12 months depending on tube condition. - No plans for repeat outpatient EGD at this time based on clinical status Jonnie Mccabe MD Division of Gastroenterology, Hepatology, and Nutrition Clinical Fellow PGY-4 Pager: [phone] * Plan of Care - Manisha Cheema [...] or what the specific medication was. DaughterKeagan [phone] would be able to answer questions. Catherine [...] of Care - Florinda Velasquez, SHIRLEY - 08/08/2024 12:54 PM EDT Problem: PT [...] Progressing * Plan of Care - Florinda Velasquez, PT - 08/06/2024 2:30 PM EDT Problem: [...] oropharyngeal swallow function to most appropriately guide MASSAGE OPERATOR plan of care Outcome: Met Goal: Bolus [...] Outcome: Progressing * Plan of Care - RKII Sharma - 08/05/2024 11:49 AM EDT Problem: Dysphagia Goal: Ongoing Assessment - Patient will participate in ongoing assessment by accepting various PO consistency trials with appropriate participation/oral acceptance and no significant respiratory complications to determine readiness for diet advancement Outcome: Met Problem: MASSAGE OPERATOR - Cognition Goal: Orientation Log - Patient [...] better assess deficits and most appropriately guide MASSAGE OPERATOR plan of care Outcome: Met Goal: Attention: [...] of Care: 1. Diet: NPO. Advancement per team/MASSAGE OPERATOR recommendation 2. Ordered TF: Glucerna 1.5 @ [...] readiness for diet advancement Outcome: Ongoing Problem: MASSAGE OPERATOR - Cognition Goal: Orientation Log - Patient [...] better assess deficits and most appropriately guide MASSAGE OPERATOR plan of care Outcome: Ongoing * Nursing Notes - Aniyah Torre RN - 08/02/2024 6:13 PM EDT On admission to [facility], from [place] a dual RN initial assessment [...] change from previous assessment. Pt transferred to [facility] via cart accompanied by Denae ENRIQUEZ. T [...] under emergency consent. SURGEON(S): Prema Ramos MD KEYBOARD TEACHER(S): None ANESTHESIA: Monitored anesthesia care DESCRIPTION OF [...] Freeclimb 70/Serjio 7 was advanced over a [employer] microcatheter which was advanced over a synchro [...] - 08/02/2024 3:26 PM EDT Lindsay Acuna ([id number]) PRE OPERATIVE DIAGNOSIS Cerebral infarction due to [...] - Primary ANESTHESIOLOGIST Anesthesiologist: Tameka Ruth MD CHUTE PULLER: Bebo Barboza APRN-CHUTE PULLER SURGICAL STAFF Hooking Machine Operator: Rachell Ruffin RN Commission Agent Livestock: Paulina Muñiz; Radha Morales COMPLICATIONS None ESTIMATED BLOOD LOSS Minimal SPECIMENS No specimen sent * No specimens in log * Prema Ramos MD August 02, 2024 3:26 PM [facility] History of Present illness Narrative* OWEN Benavides - 08/15/2024 9:01 AM EDT Care Management Discharge Note Selected Continued Care - Admitted Since 08/02/2024 Destination Coordination complete. Service Provider Services Address Phone Fax Patient Preferred [place] [id number] [facility] [id number] -- -- Internal Comment last updated by OWEN Benavides 08/15/2024 0901 Report fax: [phone] Transport Request Mode of Transfer: [facility] Name of Discharge Transport Company: [facility] [facility]charge [facility] ETA: 08/15/2024 @ 1030 Patient medically stable for discharge per physician/medical team. Pt has neurology appointment scheduled. Pt/ to schedule appointment with PCP. Patient/Waiter/Waitress First Class remain in agreement withthe discharge plan. BULMARO Allen Chief Risk Officer * OWEN Benavides - 08/14/2024 3:17 PM [...] numbersfor RN report tomorrow morning. BULMARO Allen Chief Risk Officer * Marybeth Ayoub - 08/14/2024 2:51 PM EDT Care Management Progress Note Transportation for discharge arranged Mode of Transfer: (P) [facility] Name of Discharge Transport Company: (P) [facility] ETA: (P) 08/15/2024 @ 1030 Pick-up from [facility] 1032/A Destination Tyler Garcia [facility] [address] [facility] [address] OWEN Morrell Chief Risk Officer Sheet [employer] [phone] * Jazzy Aguiar - 08/14/2024 9:47 AM [...] position Mobility Assessment/Intervention: Supine to Sit Mobility [place] Level: Supine->Sit: moderate assist (50% patient effort) Physical Assist: Supine->Sit: 2 person assist Bed Features/Set-up: Supine->Sit: Head of bed elevated, Use of bed rail Skilled Rationale: Verbal cues, Tactile cues, Hand placement, Positioning, Technique of activity Skilled Intervention/Details: Supine->Sit: Cues for technique of transfer and pt needing increased assistance for managing legs and trunk to EOB positioning Transfer Assessment/Intervention: Sit to Stand Transfer Jennings Level: Sit->Stand: moderate assist (50% patient effort) [...] hand held support Stand to Sit Transfer [place] Level: Stand->Sit: moderate assist (50% patient effort) Physical Assist: Stand->Sit: 2 person assist Assistive Device: Stand->Sit: gait belt, hand held assist Skilled Rationale: Verbal cues, Tactile cues, Hand placement, Positioning, Controlled descent for sitting Skilled Intervention/Details: Stand->Sit: Cues for positioning with BSC and recliner, pt provided bilat hand held support and needing increased support for managing a controlled descent Bed-Chair Transfer Jennings Level: Bed<->Chair: maximum assist (25% patient effort) [...] managing L side during transfer Toilet Transfer Jennings Level: Toilet: moderate assist (50% patient effort) [...] upright gaze when standing Outcome Score(s): CURRENT -[facility] Daily Activity Inpatient Short Form Putting on/Taking Off Lower Body Clothin - Total Assistance Bathin - A Lot of Assistance Toiletin - Total Assistance Putting on/Taking Off Upper Body Clothin - A Little Assistance Groomin - A Little Assistance Eatin - Total Assistance CURRENT AM-[facility] Activity Raw Score: 11 CURRENT AM-PAC [...] person, Oriented to place, Oriented to situation ("[place]" "hospital" "September" "2024" "stroke") Following Commands: Follows one step [...] blocking Mobility Assessment/Intervention: Supine to Sit Mobility Jennings Level: Supine->Sit: moderate assist (50% patient effort) [...] sitting) Transfer Assessment/Intervention: Sit to Stand Transfer Jennings Level: Sit->Stand: moderate assist (50% patient effort) Physical Assist: Sit->Stand: 2 person assist Assistive Device: Sit->Stand: gait belt Skilled Rationale: Arm in arm, Patellar block, Ischial assist, Facilitate anterior shift, Full extension to upright positioning/posture, Finding/maintaining midline positioning Skilled Intervention/Details: Sit->Stand: repeat cues to avoid significant L lean with improvement last standing. x1 from EOB, x2 from BSC Stand to Sit Transfer [place] Level: Stand->Sit: moderate assist (50% patient effort) Physical Assist: Stand->Sit: 2 person assist Assistive Device: Stand->Sit: gait belt Skilled Rationale: Arm in arm, Controlled descent for sitting Skilled Intervention/Details: Stand->Sit: last trial assisted R hand to recliner arm rest and ongoing cues for wt shift to R Bed-Chair Transfer [place] Level: Bed<->Chair: maximum assist (25% patient effort) [...] Mobility Assessment/Intervention: Stairs Assessment/Intervention: Outcome Score(s): CURRENT [facility] Basic Mobility Inpatient Short Form Turning [...] with a railin - Total Assistance CURRENT [facility] Mobility Raw Score: 8 CURRENT [facility] Mobility Functional Limitation: 86.62% Impaired in [...] 10 Treating Therapist: Shaina Rosales PT, DPT [id number] 08/14/2024 Additional Details: PT Co-Eval/Treatment Information Co-evaluation/co-treatment [...] the current Physical Therapy Discharge Summary. * RIKI Blancas - 08/14/2024 8:37 AM EDT Acute Care [...] on the below outcome measures/assessment score(s) and MASSAGE OPERATOR clinicaljudgment, discharge destination recommendation is: IPR Barriers to discharge home: 1:1 assist needed for IADL's including medication management and finances Supporting factors for discharge setting: Impaired swallow function limiting nutritional status andsafety with oral intake, Impaired cognitive skills limiting safety/insight Acute MASSAGE OPERATOR Outcomes Tracking Communicate basic wants and needs?: [...] independent carry over. Strong family support. Ongoing MASSAGE OPERATOR s indicated. Subjective information: Alert, present. SO referenced his notes from yesterday and reportedcarry over of exercises yesterday. Patient with zero recall Pain: Nonverbal indicator not present Precautions: Patient Safety Communication Prior to Visit: Nursing Lines/Tubes/Drains (Rehab Status): Telemetry, Tube feed Existing Precautions/Restrictions: fall Respiratory Status: O2 Sat (%): 96 % (08/14 0711) O2 Device: room air (08/14 0947) Acute MASSAGE OPERATOR Goals Plan of Care by RIKI Blancas at 08/14/2024 2:42 PM Version 1 of [...] RoM to achieve technique. Outcome: Ongoing Problem: MASSAGE OPERATOR - Cognition Goal: Orientation Log - Patient [...] next session: 08/14 - ongoing exercises, education MASSAGE OPERATOR Outcomes: FOIS 2 Speech Language Pathologist: RIKI [...] of session: none altered Needs in reach. MASSAGE OPERATOR Evaluation and Treatment Time Speech Therapy - Individual 74217: 14 Swallowing Dysfunction Treatment 47604: 14 Upon discontinuation of Acute Care Speech Therapy Services or patient discharge from the hospital this note represents the current Speech Therapy Discharge Summary * RIKI Blanacs - 08/13/2024 11:10 AM EDT Acute Care [...] on the below outcome measures/assessment score(s) and MASSAGE OPERATOR clinicaljudgment, discharge destination recommendation is: Inpatient Rehab Facility Barriers to discharge home: 1:1 assist needed for IADL's including medication management and finances Supporting factors for discharge setting: Impaired swallow function limiting nutritional status andsafety with oral intake, Impaired cognitive skills limiting safety/insight Acute MASSAGE OPERATOR Outcomes Tracking Communicate basic wants and needs?: [...] O2 Device: room air (08/13 710) Acute MASSAGE OPERATOR Goals Plan of Care by Tanja Cason, MASSAGE OPERATOR at 08/13/2024 11:10 AM Version 1 of [...] 10 reps this session. Outcome: Ongoing Problem: MASSAGE OPERATOR - Cognition Goal: Orientation Log - Patient [...] considerations: Cognition Patient Instruction/Education comments: Role of MASSAGE OPERATOR, presence and normalized frustration with cognitive-communicative impairments. Focused on memory this date and that patient does not recall education so perseverative questions are normal. Reviewed intermittent silent aspiration from MBS last weekand ongoing signs of dysphagia this session, will plan to coordinate timing for repeat instrumentalwith care team Plan for next session: 08/13 -fair MASSAGE OPERATOR Outcomes: FOIS 2 Speech Language Pathologist: RIKI [...] of session: none altered Needs in reach. MASSAGE OPERATOR Evaluation and Treatment Time Speech Therapy - Individual 93782: 12 Swallowing Dysfunction Treatment 18996: 13 Upon discontinuation of Acute Care Speech Therapy Services or patient discharge from the hospital this note represents the current Speech Therapy Discharge Summary * OWEN Benavides - 08/12/2024 3:21 PM EDT Placement Plan Expected Discharge Date: 08/14/2024 Referred Level of Care: IPR Barriers: Medical Readiness & Precertification Current Referrals and Status 1. [facility]accept[facility] started precertification today. BULMARO Allen Chief Risk Officer * Jazzy Aguiar - 08/12/2024 10:46 AM [...] sinkside Mobility Assessment/Intervention: Supine to Sit Mobility Jennings Level: Supine->Sit: moderate assist (50% patient effort) [...] positioning Transfer Assessment/Intervention: Sit to Stand Transfer Jennings Level: Sit->Stand: maximum assist (25% patient effort) [...] maintaining upright posture Stand to Sit Transfer Jennings Level: Stand->Sit: maximum assist (25% patient effort) Physical Assist: Stand->Sit: 2 person assist Assistive Device: Stand->Sit: gait belt, hand held assist Skilled Rationale: Verbal cues, Tactile cues, Hand placement, Positioning, Controlled descent for sitting Skilled Intervention/Details: Stand->Sit: Cues for positioning with recliner and using BUEs to help with appropriate positoining of hips in chair Bed-Chair Transfer Jennings Level: Bed<->Chair: maximum assist (25% patient effort) Physical Assist: Bed<->Chair: 2 person assist Assistive Device: Bed<->Chair: gait belt Skilled Rationale: Verbal cues, Tactile cues, Hand placement, Positioning, Technique of activity Skilled Intervention/Details: Bed<->Chair: x1 from EOB to recliner on R. Pt needing increasedsupport for managing L side and sequencing steps for appropriate positioning with recliner Outcome Score(s): CURRENT [facility] Daily Activity Inpatient Short Form Putting on/Taking Off Lower Body Clothin - Total Assistance Bathin - A Lot of Assistance Toiletin - Total Assistance Putting on/Taking Off Upper Body Clothin - A Lot of Assistance Groomin - A Lot of Assistance Eatin - Total Assistance CURRENT [facility] Activity Raw Score: 9 CURRENT [facility] Activity Functional Limitation/Modifier: 79.59% Currently Impaired [...] speech and L hemiplegia. She presented to [facility] and was seen on Telestroke, NIHSS 12. [...] goal TF volume. Pt last assessed by MASSAGE OPERATOR 08/08 with recommendations for NPO. S/p PEG [...] chips. Will also increase free water flushes. MASSAGE OPERATOR to see pt tomorrow. Nutrition Focused Physical Exam: Nutrition Focused Physical Exam Completed?: completed Subcutaneous Fat Loss: Orbital Region (Orbital Fat Pads): WDL Cheek Region (Buccal Fat Pads): WDL Upper Arm Region (Triceps): WDL Thoracic and Lumbar Region (Ribs, Lower Back, Midaxillary Line): WDL Muscle Wasting: [place] (Temporalis Muscle): deferred (lac over eyebrow) [...] kg (172 lb) 06/26/24 78.9 kg (174 lb)-[facility] 05/31/24 79 kg (174 lb 2.6 oz)-[facility] 11/28/23 80.6 kg (177 lb 9.6 oz)-[facility] 09/29/23 84 kg (185 lb)-[facility] meds reviewed: Scheduled: Reviewed, includes insulin, Synthroid, [...] Needs: Weight Used: 61 kg (IBW) EEN: 1089-6361 kcal/day (25-30 kcal/kg) EPN: 73-92 g/day (1.2-1.5 g/kg) EFN: 1830 mL/day (30 mL/kg) or per primary team Malnutrition Statement: Does the patient meet criteria for malnutrition: No *Based on The Academy and ASPEN Indicators to Diagnose Malnutrition (AAIM) criteria (2012) Tianna Murray RD, LD, [facility] Pager #[phone] * Katie Ramos, PT - 08/12/2024 10:22 [...] standing. Mobility Assessment/Intervention: Supine to Sit Mobility Jennings Level: Supine->Sit: moderate assist (50% patient effort) Physical Assist: Supine->Sit: 2 person assist Bed Features/Set-up: Supine->Sit: Head of bed elevated Skilled Rationale: Verbal cues, Tactile cues, Hand placement, Technique of activity Skilled Intervention/Details: Supine->Sit: verbal/tactile cues for instruction on transfer technique and mod A x 2 for LE and trunk management. Transfer Assessment/Intervention: Sit to Stand Transfer Jennings Level: Sit->Stand: maximum assist (25% patient effort) Physical Assist: Sit->Stand: 2 person assist Assistive Device: Sit->Stand: gait belt Skilled Rationale: Verbal cues, Tactile cues, Hand placement, Technique of activity Skilled Intervention/Details: Sit->Stand: x2 trials with verbal/tactile cues for instruction on transfer technique, hand placement, and blocking left knee. Bed-Chair Transfer Jennings Level: Bed<->Chair: maximum assist (25% patient effort) Physical Assist: Bed<->Chair: 2 person assist Assistive Device: Bed<->Chair: gait belt Skilled Rationale: Verbal cues, Tactile cues, Hand placement, Technique of activity Skilled Intervention/Details: Bed<->Chair: x1 trial from EOB to chair to the right. Verbal/tactile cues for instruction on transfer technqiue, blocking left knee. Outcome Score(s): CURRENT [facility] Basic Mobility Inpatient Short Form Turning over in bed: 2 - A Lot of Assistance Moving from lying on back to sittin - Total Assistance Moving to and from bed to chair: 1 - Total Assistance Sitting/standing from chair: 1 - Total Assistance Walk in hospital room: 1 - Total Assistance Climbing 3-5 steps with a railin - Total Assistance CURRENT [facility] Mobility Raw Score: 7 CURRENT [facility] Mobility Functional Limitation: 92.36% Impaired in [...] current Physical Therapy Discharge Summary. * Radha Gr APRN-FUN HOUSE ATTENDANT - 08/11/2024 7:15 AM EDT NEUROVASCULAR STROKE SERVICE Daily Progress Note IDENTIFYING INFORMATION Lindsay Acuna MR# [id number] 08/11/2024 HISTORY OF PRESENT ILLNESS Lindsay Acuna is a 78 y.o. female with PMH significant for CAD, HTN, HLD, T2DM, Afib (on Eliquis, although patient reports she has not been taking it) who presents with L hemiplegia, slurred speech. LKW 0915 on 08/02, later found down with slurred speech and L hemiplegia. She presented to [facility] and was seen on Telestroke, NIHSS 12. [...] 2b revascularization. INTERVAL HISTORY 08/05: Transfer to NH. MBS tomorrow 08/06: Failed MBS. Increased lopressor. [...] today 08/11 -Rate controlled on metoprolol Dysphagia: -MASSAGE OPERATOR following -NPO, DHT + TF -Failed MBS [...] Lindsay Acuna will likely be discharged to [facility] when medically ready Radha Gr, JASIEL-FUN HOUSE ATTENDANT 08/11/2024 10:17 AM VITAL SIGNS Temp: [97.2 [...] for specific therapeutic recommendations, please see the humanities professor report of the speech pathologist. Examination performed [...] and neurological examinations as recorded by the SUPERVISOR COUNSELING AND GUIDANCE repeated and confirmed. I have personally reviewed [...] of tooth. Blood cx unremarkable. * Radha Gr APRN-GARRETT - 08/10/2024 7:14 AM EDT NEUROVASCULAR STROKE SERVICE Daily Progress Note IDENTIFYING INFORMATION Lindsay Acuna MR# [id number] 08/10/2024 HISTORY OF PRESENT ILLNESS Lindsay Acuna is a 78 y.o. female with PMH significant for CAD, HTN, HLD, T2DM, Afib (on Eliquis, although patient reports she has not been taking it) who presents with L hemiplegia, slurred speech. LKW 0915 on 08/02, later found down with slurred speech and L hemiplegia. She presented to [facility] and was seen on Telestroke, NIHSS 12. [...] 2b revascularization. INTERVAL HISTORY 08/05: Transfer to NH. MBS tomorrow 08/06: Failed MBS. Increased lopressor. [...] as above -Rate controlled on metoprolol Dysphagia: -MASSAGE OPERATOR following -NPO, DHT + TF -Failed MBS [...] Lindsay Acuna will likely be discharged to [facility] when medically ready Radha Gr APRN-FUN HOUSE ATTENDANT 08/10/2024 7:14 AM VITAL SIGNS Temp: [97.4 [...] for specific therapeutic recommendations, please see the humanities professor report of the speech pathologist. Examination performed [...] and external bumper. - If used termite treater helper, PEG should be changed every 3-6 months [...] Hepatology, and Nutrition Clinical Fellow PGY-4 Pager: [phone] For follow up questions regarding this patient 7am to 5pm, contact the IBD consults fellow or DAHLIA on QGenda. [facility]--> Internal Medicine--> Gastroenterology, Hepatology, & Nutrition--> IBD Consult Service Fel Day OR IBD Consult Service DAHLIA Day For urgent/stat calls or new consults 5pm to 7am or all day on the weekend, please page the on-callGI fellow on QGenda. [facility]--> Internal Medicine--> Gastroenterology, Hepatology, & Nutrition--> 1st [...] CM for assistance as needed (8:00am-4:30pm) BASH: [phone] Maria: [phone] Johan: [phone] Ross: [phone] For Social Work assistance for the weekend, please contact SW for assistance as needed (8:00am - 4:30pm): BASH: [phone] Maria: [phone] Johan: [phone] Ross: [phone] * Radha Gr APRN-GARRETT - 08/09/2024 8:07 AM EDT NEUROVASCULAR STROKE SERVICE Daily Progress Note IDENTIFYING INFORMATION Lindsay Acuna MR# [id number] 08/09/2024 HISTORY OF PRESENT ILLNESS Linsday Acuna is a 78 y.o. female with PMH significant for CAD, HTN, HLD, T2DM, Afib (on Eliquis, although patient reports she has not been taking it) who presents with L hemiplegia, slurred speech. TOREYW 0915 on 08/02, later found down with slurred speech and L hemiplegia. She presented to [facility] and was seen on Telestroke, NIHSS 12. [...] 2b revascularization. INTERVAL HISTORY 08/05: Transfer to NH. MBS tomorrow 08/06: Failed MBS. Increased lopressor. [...] as above -Rate controlled on metoprolol Dysphagia: -MASSAGE OPERATOR following -NPO, DHT + TF -Failed MBS [...] Lindsay Acuna will likely be discharged to [facility] when medically ready Radha Gr, DIRECTOR 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 08/09/2024 8:07 AM VITAL SIGNS Temp: [97.3 [...] for specific therapeutic recommendations, please see the humanities professor report of the speech pathologist. Examination performed [...] on the below outcome measures/assessment score(s) and MASSAGE OPERATOR clinicaljudgment, discharge destination recommendation is: Inpatient Rehab Facility Acute MASSAGE OPERATOR Outcomes Tracking Communicate basic wants and needs?: [...] pressions and introduction to effortful swallow exercise. MASSAGE OPERATOR provided education regarding recommendation of NPO given [...] constraints (transport arrived for pt's CT scan). MASSAGE OPERATOR will follow as able. Subjective information: Patient upright in chair, at bedside. Agreeable to MASSAGE OPERATOR session. Pain: General Pain Documentation (Adult, OB, [...] room air Flow (L/min): [3] 3 Acute MASSAGE OPERATOR Goals Plan of Care by RIKI Penaloza [...] phsyiology, risks of aspiration pneumonia). Educated regarding MASSAGE OPERATOR role in swallow rehab and future POC Plan for next session: 08/06: cog tx and dysphagia exercises MASSAGE OPERATOR Outcomes: FOIS: 1 Speech Language Pathologist: RIKI Penaloza Time In: 1310 Time Out: 1330 Total Visit Time: 20 minutes Total Treatment Time (skilled, billable minutes): 20 minutes Non-billable assistance during session: NA Assisted by during session: NA PPE used during patient interaction: gloves Patient location/status at end of session: chair Patient alarms at end of session: none altered Needs in reach. MASSAGE OPERATOR Evaluation and Treatment Time Swallowing Dysfunction Treatment 59072: 20 Upon discontinuation of Acute Care Speech [...] feedback Mobility Assessment/Intervention: Supine to Sit Mobility Jennings Level: Supine->Sit: moderate assist (50% patient effort) Physical Assist: Supine->Sit: 2 person assist Bed Features/Set-up: Supine->Sit: Use of bed rail, Head of bed elevated Skilled Rationale: Sequencing, Verbal cues, Hand placement, Positioning Skilled Intervention/Details: Supine->Sit: increased time/cues Transfer Assessment/Intervention: Sit to Stand Transfer Jennings Level: Sit->Stand: moderate assist (50% patient effort) Physical Assist: Sit->Stand: 2 person assist Assistive Device: Sit->Stand: gait belt, hand held assist Skilled Rationale: Positioning, Sequencing, Hand placement, Verbal cues Skilled Intervention/Details: Sit->Stand: Pt educated in sit to stand transfers x 2 attempts, one from EOB and one from chair Bed-Chair Transfer Jennings Level: Bed<->Chair: maximum assist (25% patient effort) [...] Mobility Assessment/Intervention: Stairs Assessment/Intervention: Outcome Score(s): CURRENT [facility] Basic Mobility Inpatient [...] with a railin - Total Assistance CURRENT -[facility] Mobility Raw Score: 8 CURRENT -[facility] Mobility Functional Limitation: 86.62% Impaired in [...] positioning Mobility Assessment/Intervention: Supine to Sit Mobility Jennings Level: Supine->Sit: moderate assist (50% patient effort) [...] positioning Transfer Assessment/Intervention: Sit to Stand Transfer Jennings Level: Sit->Stand: moderate assist (50% patient effort) Physical Assist: Sit->Stand: 2 person assist Assistive Device: Sit->Stand: gait belt, hand held assist Skilled Rationale: Verbal cues, Tactile cues, Hand placement, Positioning, Technique of activity Skilled Intervention/Details: Sit->Stand: x1 from EOB, x1 from recliner. Cues for technique and assuming an upright posture once standing Stand to Sit Transfer Jennings Level: Stand->Sit: moderate assist (50% patient effort) Physical Assist: Stand->Sit: 2 person assist Assistive Device: Stand->Sit: gait belt, hand held assist Skilled Rationale: Verbal cues, Tactile cues, Hand placement, Positioning, Controlled descent for sitting Skilled Intervention/Details: Stand->Sit: Cues for positioning with recliner and using arms to help with controlled descent into chair Bed-Chair Transfer Jennings Level: Bed<->Chair: maximum assist (25% patient effort) [...] appropriately position with chair. Outcome Score(s): CURRENT [facility] Daily Activity Inpatient Short Form Putting on/Taking Off Lower Body Clothin - Total Assistance Bathin - A Lot of Assistance Toiletin - Total Assistance Putting on/Taking Off Upper Body Clothin - A Lot of Assistance Groomin - A Lot of Assistance Eatin - Total Assistance CURRENT [facility] Activity Raw Score: 9 CURRENT [facility] Activity Functional Limitation/Modifier: 79.59% Currently Impaired [...] clinical decisions and judgements. * Bella Cardenas APRN-FUN HOUSE ATTENDANT - 08/08/2024 7:21 AM EDT NEUROVASCULAR STROKE SERVICE Daily Progress Note IDENTIFYING INFORMATION Lindsay Acuna MR# [id number] 08/08/2024 HISTORY OF PRESENT ILLNESS Lindsay Acuna is a 78 y.o. female with PMH significant for CAD, HTN, HLD, T2DM, Afib (on Eliquis, although patient reports she has not been taking it) who presents with L hemiplegia, slurred speech. LKW 0915 on 08/02, later found down with slurred speech and L hemiplegia. She presented to [facility] and was seen on Telestroke, NIHSS 12. [...] 2b revascularization. INTERVAL HISTORY 08/05: Transfer to NH. [facility] tomorrow 08/06: Failed MBS. Increased lopressor. Spouse [...] as above -Rate controlled on metoprolol Dysphagia: -MASSAGE OPERATOR following -NPO, DHT + TF -Failed MBS [...] Lindsay Acuna will likely be discharged to [facility] when medically ready Bella Cardenas, JASIEL-FUN HOUSE ATTENDANT 08/08/2024 2:53 PM VITAL SIGNS Temp: [97.4 [...] for specific therapeutic recommendations, please see the humanities professor report of the speech pathologist. Examination performed [...] availability Current Referrals and Status 1. [facility] CCM notified LUCIO student confirming after call with Patient's daughter that [facility] facility of choice. Facility reserved. AVS/DAVE [...] and patient's spouse are agreeable to [facility] as facility of choice, and Gisela is agreeable to [facility] as well. Updated LUCIO student. Simin Resendez, RN, BSN Clinical Comic Book Designer [facility] * Chela Hannon - 08/07/2024 2:08 PM EDT Placement Plan PRODUCT PICKER met with Patient and spouse at bedside to discuss facility choice. Spouse mentioned that [facility] was first choice, though PRODUCT PICKER provided update that [facility] could not accept after reviewing. PRODUCT PICKER reviewed other IPR options with Spouse, who reports that [facility] would be facility of choice. Spouse discussed with daughter Gisela via phone, who is in agreement but requestsa return call. PRODUCT PICKER notified CCM. Chela Snyder, Social Work Student Available by Secure Chat Cosigned by OWEN Keller at 08/07/2024 2:11 PM EDT * Bella Cardenas, DIRECTOR 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 - 08/07/2024 6:54 AM EDT NEUROVASCULAR STROKE SERVICE Daily Progress Note IDENTIFYING INFORMATION Lindsay Acuna MR# [id number] 08/07/2024 HISTORY OF PRESENT ILLNESS Lindsay Acuna is a 78 y.o. female with PMH significant for CAD, HTN, HLD, T2DM, Afib (on Eliquis, although patient reports she has not been taking it) who presents with L hemiplegia, slurred speech. LKW 0915 on 08/02, later found down with slurred speech and L hemiplegia. She presented to [facility] and was seen on Telestroke, NIHSS 12. [...] 2b revascularization. INTERVAL HISTORY 08/05: Transfer to NH. MBS tomorrow 08/06: Failed MBS. Increased lopressor. [...] as above -Rate controlled on metoprolol Dysphagia: -MASSAGE OPERATOR following -NPO, DHT + TF -Failed MBS [...] Lindsay Acuna will likely be discharged to [facility] when medically ready Bella Cardenas APRN-FUN HOUSE ATTENDANT 08/07/2024 3:06 PM VITAL SIGNS Temp: [97.5 [...] for specific therapeutic recommendations, please see the humanities professor report of the speech pathologist. Examination performed [...] authorization, transportation Current Referrals and Status 1. [facility]: Available 2. [facility]: Available 3. [facility]: Available (pending PEG or diet and their MD requested aspirin started before discharge) 4. [facility]: Available 5. [facility]: Unavailable, out of network 6. [facility]: Unavailable, Incorrect Level of Care 7. [facility] IPR: sent Met with patient and patient's spouse, Ike, at bedside to provide choice list. Ike called patient's daughter, Gisela Acuna, to discuss as well. Gisela requested information on private pay at [facility], messaged [facility] liaison and then provided information to Gisela. Gisela requested CM sendreferral to [facility] IPR. Plan for family to review choice list raman, CM/SW team will update patient and family regarding [facility] IPR response tomorrow morning. This CM's contact information provided to Ike Acuna and Gisela Acuna for any further questions. Simin Resendez RN, BSN Clinical Comic Book Designer [facility] * Florinda Velasquez, PT - 08/06/2024 [...] minutes Mobility Assessment/Intervention: Supine to Sit Mobility Jennings Level: Supine->Sit: moderate assist (50% patient effort) Bed Features/Set-up: Supine->Sit: Head of bed elevated, Use of bed rail Skilled Rationale: Positioning, Sequencing Skilled Intervention/Details: Supine->Sit: step by step cues for sequencingg Transfer Assessment/Intervention: Sit to Stand Transfer Jennings Level: Sit->Stand: moderate assist (50% patient effort) [...] left UE during transitional movements Bed-Chair Transfer Jennings Level: Bed<->Chair: moderate assist (50% patient effort) Physical Assist: Bed<->Chair: 2 person assist Assistive Device: Bed<->Chair: gait belt, hand held assist Skilled Rationale: Positioning, Hand placement, Verbal cues, Sequencing Skilled Intervention/Details: Bed<->Chair: Pt educated in bed to [facility] commode transfer x 2-3 steps with cues for LE sequencing, left LE weakness requiring intermittent blocking Gait/Functional Mobility Assessment/Intervention: Gait Assessment Jennings Level: Gait: (mod/max) Physical Assist: Gait: 2 [...] prevent buckling. Stairs Assessment/Intervention: Outcome Score(s): CURRENT [facility] Basic Mobility Inpatient Short Form Turning [...] with a railin - Total Assistance CURRENT [facility] Mobility Raw Score: 9 CURRENT [facility] Mobility Functional Limitation: 81.38% Impaired in [...] current Physical Therapy Discharge Summary. * Nimesh Balderrama, [facility] - 08/06/2024 1:42 PM EDT Department of Pharmacy Admission Medication Reconciliation Note Patient: Lindsay Acuna Room/Bed: 1043/A I have reviewed the patient's home medication list with the following sources Dispense Report. The home medication list status is: complete. All changes to the home medication list have been updated in [facility]. Updated PAROLE DIRECTOR Med List: Prior to Admission Medications Prescriptions [...] me with any further questions. Name: Nimesh Parkuler NAIMA Phone #: [phone] Date/Time: 08/06/2024 1:42 PM Time Spent: 10 [...] noted Mobility Assessment/Intervention: Supine to Sit Mobility Jennings Level: Supine->Sit: moderate assist (50% patient effort) [...] completion. Transfer Assessment/Intervention: Sit to Stand Transfer Jennings Level: Sit->Stand: (x 1 trial from EOB [...] and kyphotic posture. Stand to Sit Transfer Jennings Level: Stand->Sit: moderate assist (50% patient effort) Assistive Device: Stand->Sit: gait belt (Arm and arm assist.) Skilled Rationale: Cues for increased safety, Initiation and execution of task, Technique of activity, Controlled descent for sitting, Ischial assist, Arm in arm, Tactile cues, Verbal cues, Hand placement, Sequencing, Positioning Bed-Chair Transfer Jennings Level: Bed<->Chair: moderate assist (50% patient effort) [...] with left LE). Functional Mobility: Functional Mobility Jennings Level: Functional Mobility/Gait: (Moderate-max assistance) Physical Assist: [...] overall decreased insight/awareness intodeficits. Outcome Score(s): CURRENT AM-[facility] Daily Activity Inpatient Short Form Putting on/Taking Off Lower Body Clothin - Total Assistance Bathin - A Lot of Assistance Toiletin - Total Assistance Putting on/Taking Off Upper Body Clothin - A Lot of Assistance Groomin - A Lot of Assistance Eatin - Total Assistance ([place]obhoff.) CURRENT AM-[facility] Activity Raw Score: 9 CURRENT -[facility] Activity Functional Limitation/Modifier: 79.59% Currently Impaired [...] Occupational Therapy Discharge Summary. * Taran Traore APRN-FUN HOUSE ATTENDANT - 08/06/2024 7:49 AM EDT NEUROVASCULAR STROKE SERVICE Daily Progress Note IDENTIFYING INFORMATION Lindsay Acuna MR# [id number] 08/06/2024 HISTORY OF PRESENT ILLNESS Lindsay Acuna is a 78 y.o. female with PMH significant for CAD, HTN, HLD, T2DM, Afib (on Eliquis, although patient reports she has not been taking it) who presents with L hemiplegia, slurred speech. LKW 0915 on 08/02, later found down with slurred speech and L hemiplegia. She presented to [facility] and was seen on Telestroke, NIHSS 12. [...] 2b revascularization. INTERVAL HISTORY 08/05: Transfer to [facility] tomorrow 08/06: Failed MBS. Increased lopressor. Spouse [...] as above -Rate controlled on metoprolol Dysphagia: -MASSAGE OPERATOR following -NPO, DHT + TF -Failed MBS [...] Lindsay Acuna will likely be discharged to [facility] when medically ready Taran Traore, DIRECTOR 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 08/06/2024 1:43 PM VITAL SIGNS Temp: [96.5 [...] for specific therapeutic recommendations, please see the humanities professor report of the speech pathologist. Examination performed [...] mL Per NG tube Q4H Cosigned by Feilcity Castellano MD at 08/12/2024 10:47 AM EDT * Taran Zamudio León, DIRECTOR 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 - 08/05/2024 12:00 PM EDT NEUROVASCULAR STROKE SERVICE Daily Progress Note IDENTIFYING INFORMATION Lindsay Acuna MR# [id number] 08/05/2024 HISTORY OF PRESENT ILLNESS Lindsya Acuna is a 78 y.o. female with PMH significant for CAD, HTN, HLD, T2DM, Afib (on Eliquis, although patient reports she has not been taking it) who presents with L hemiplegia, slurred speech. LKW 0915 on 08/02, later found down with slurred speech and L hemiplegia. She presented to [facility] and was seen on Telestroke, NIHSS 12. [...] 2b revascularization. INTERVAL HISTORY 08/05: Transfer to [facility] tomorrow PHYSICAL EXAM Gen: awake, alert, [...] as above -Rate controlled on metoprolol Dysphagia: -MASSAGE OPERATOR following -NPO, DHT + TF -MBS tomorrow HLD, POA: -Atorvastatin 40 mg daily CAD, POA: -Hold ASA for 7 days due to ICH T2DM, POA: -SSI regular + accuchecks CKD Stage 3A, POA: Baseline Cr 1.3 -Avoid nephrotoxins, monitor Hypothyroidism, POA: -Continue home levothyroxine 75 mcg daily Disposition: Lindsay Acuna will likely be discharged to [facility] when medically ready Taran Traore, JASIEL-FUN HOUSE ATTENDANT 08/05/2024 2:19 PM VITAL SIGNS Temp: [97.8 [...] Per NG tube Q4H * Queta Gardner, MASSAGE OPERATOR - 08/05/2024 11:49 AM EDT Acute Care [...] on the below outcome measures/assessment score(s), and MASSAGE OPERATOR clinical judgment, discharge destination recommendation is: Pending [...] Impaired cognitive skills limiting saf ety/insight Acute MASSAGE OPERATOR Outcomes Tracking Communicate basic wants and needs?: [...] oropharyngeal swallow function to most appropriately guide MASSAGE OPERATOR plan of care. Of note, patient is [...] Currentdeficits impact her safety and independence. Ongoing MASSAGE OPERATOR services are warranted. Subjective information: Awake, alert, [...] O2 Device: room air (08/05 0830) Acute MASSAGE OPERATOR Goals Plan of Care by Queta Gardner, MASSAGE OPERATOR at 08/05/2024 11:49 AM Version 1 of [...] oropharyngeal swallow function to most appropriately guide MASSAGE OPERATOR plan of care Outcome: Ongoing Problem: MASSAGE OPERATOR - Cognition Goal: Orientation Log - Patient [...] better assess deficits and most appropriately guide MASSAGE OPERATOR plan of care Outcome: Met Tx: Noted [...] Plan for next session: 08/05: Good candidate; [facility] MASSAGE OPERATOR Outcomes: MASSAGE OPERATOR Outcomes / Standardized Measures Score The Orientation [...] wrist restraints, RN aware Needs in reach. MASSAGE OPERATOR Evaluation and Treatment Time Speech Therapy - Individual 03785: 8 Swallowing Dysfunction Treatment 64445: 9 Upon discontinuation of Acute Care Speech Therapy Services or patient discharge from the hospital this note represents the current Speech Therapy Discharge Summary * Chela Hannon - 08/05/2024 10:37 AM EDT Placement Plan Expected Discharge Date: TBD Referred Level of Care: IPR Barriers: medical stability, bed availability Current Referrals and Status 1. [facility]- sent; denied (Patient is OON) 2. [facility]- sent 3. [facility]- sent 4. [facility]- sent 5. [facility]- sent 6. [facility] PRODUCT PICKER met with Patient and Spouse at bedside to discuss discharge planning. Patient and spouse were agreeable to SW visit. PRODUCT PICKER discussed therapy recommendations with Spouse for Patient to go to [facility] at discharge. Spouse is agreeable to a referral being sent to [facility]. Referral sent. Spouse requested to speak to about assessing Patient for dementia. PRODUCT PICKER and bedside RN encouragedSpouse to discuss with Patient's outpatient provider. Chela Snyder, Social Work Student Available by Secure Chat Cosigned by OWEN Keller at 08/05/2024 11:22 AM EDT * Savana Leung RD - 08/05/2024 10:10 AM EDT NUTRITION ASSESSMENT Nutrition Recommendations and Plan of Care: 1. Diet: NPO. Advancement per team/MASSAGE OPERATOR recommendation 2. Ordered TF: Glucerna 1.5 @ [...] time. Per team, pt failed bedside swallow. MASSAGE OPERATOR consulted for swallow eval. Past History No [...] kg (172 lb) 06/26/24 78.9 kg (174 lb)-[facility] 05/31/24 79 kg (174 lb 2.6 oz)-[facility] 11/28/23 80.6 kg (177 lb 9.6 oz)-[facility] 09/29/23 84 kg (185 lb)-[facility] Pt without significant weight change PAROLE DIRECTOR. Tmax: 97.8*F BP: (!) 173/94 Pulse (Heart [...] proximal second portion of the duodenum. BM: PAROLE DIRECTOR Urine: 725mL Skin: Raghu Score: 13 Active Wounds: Wound Sheath Site 08/02/24 1500 Right Radial (3) Wound Abrasion 08/02/24 2109 Left;Upper Face (3) Edema- None Estimated Nutrition Needs: Based on IBW (61.4kg) Estimated Kcals Needs: 7727-7789 kcals (25-30kcals/kg) Estimated Pro Needs: 74-92g Pro (1.2-1.5g/kg) Estimated Fluid Needs: Per MD Nutrition Focused Physical Exam Completed?: completed Subcutaneous Fat Loss: Orbital Region (Orbital Fat Pads): WDL Cheek Region (Buccal Fat Pads): WDL Upper Arm Region (Triceps): WDL Thoracic and Lumbar Region (Ribs, Lower Back, Midaxillary Line): WDL Muscle Wasting: [place] (Temporalis Muscle): deferred (lac over eyebrow) [...] (2012) ELVIRA Ho, RD, LD, CNSC Pager: [phone] * Rashad Rg MD - 08/05/2024 9:42 AM EDT 78F admitted to the [facility] with Rt M1 occlusion s/p TICI2b revascularization. [...] care time 31min. * Shanna Russ, DIRECTOR 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 - 08/05/2024 7:20 AM EDT NEUROCRITICAL CARE [...] Visual richards intact to confrontation. PERRL. 3mm drug safety specialist III, IV and : EOMI. No nystagmus. [...] aggressive pulm edema, OOB as toleratd - [id number], encourage pulmonary toileting Cards: Essential HTN HLD [...] TUBE FEEDING with meds (per DHT) - Gazelle Swallow Screening Result: failed=NPO Bowel regimen: - Last Bowel Movement: (prior to admission) - Senna 17.2 mg Q12H, miralax BID, suppository PRN Stress ulcer prophylaxis: - none Dysphagia - DHT placed - MASSAGE OPERATOR following; NPO continue following, on TF - [...] in place Discussed with NCCU Attending, Dr. Arcenio Russ, DIRECTOR 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 08/05/24 7:24 AM Check the treatment team to find the assigned neurocritical care provider (resident, fellow, SUPERVISOR COUNSELING AND GUIDANCE, orPA) or page/call the corresponding number below NCC1 (Beds [phone]): [place]ell # [phone], pager #[phone] NCC2 (Beds 3821-1585, 12 Nando, and overflow): Retention[employer] #: [phone], pager #[phone] * Florinda Velasquez, PT - 08/04/2024 1:36 [...] noted Mobility Assessment: Supine to Sit Mobility Jennings Level: Supine->Sit: moderate assist (50% patient effort) [...] EOB Transfer Assessment: Sit to Stand Transfer Jennings Level: Sit->Stand: moderate assist (50% patient effort) Physical Assist: Sit->Stand: 2 person assist Assistive Device: Sit->Stand: gait belt, hand held assist Skilled Rationale: Positioning, Sequencing, Hand placement, Verbal cues Skilled Intervention/Details: Sit->Stand: x 1 from EOB Bed-Chair Transfer Jennings Level: Bed<->Chair: moderate assist (50% patient effort) Physical Assist: Bed<->Chair: 2 person assist Assistive Device: Bed<->Chair: gait belt, hand held assist Skilled Rationale: Positioning, Sequencing, Hand placement, Verbal cues Skilled Intervention/Details: Bed<->Chair: x 2-3 steps from bed to chair Gait/Functional Mobility: Stairs: Outcome Score(s): CURRENT [facility] Basic Mobility Inpatient Short Form Turning [...] with a railin - Total Assistance CURRENT [facility] Mobility Raw Score: 10 CURRENT [facility] Mobility Functional Limitation: 76.75% Impaired in [...] Edema: Mobility Assessment: Supine to Sit Mobility Jennings Level: Supine->Sit: moderate assist (50% patient effort) Physical Assist: Supine->Sit: 2 person assist Bed Features/Set-up: Supine->Sit: Head of bed elevated Skilled Rationale: Positioning, Hand placement, Verbal cues, Technique of activity Transfer Assessment: Sit to Stand Transfer Jennings Level: Sit->Stand: moderate assist (50% patient effort) Physical Assist: Sit->Stand: 2 person assist Assistive Device: Sit->Stand: gait belt, hand held assist Skilled Rationale: Positioning, Hand placement, Verbal cues, Technique of activity Stand to Sit Transfer Jennings Level: Stand->Sit: moderate assist (50% patient effort) Physical Assist: Stand->Sit: 2 person assist Assistive Device: Stand->Sit: hand held assist Skilled Rationale: Positioning, Hand placement, Verbal cues, Arm in arm, Controlled descent for sitting Bed-Chair Transfer Jennings Level: Bed<->Chair: moderate assist (50% patient effort) Physical Assist: Bed<->Chair: 2 person assist Assistive Device: Bed<->Chair: gait belt, hand held assist Skilled Rationale: Arm in arm, Patellar block, Technique of activity Skilled Intervention/Details: Bed<->Chair: LLE weakness/blocking of patella with transfer, pivot to right Functional Mobility: Outcome Score(s): CURRENT [facility] Daily Activity Inpatient Short Form Putting on/Taking Off Lower Body Clothin - A Lot of Assistance Bathin - A Lot of Assistance Toiletin - Total Assistance Putting on/Taking Off Upper Body Clothin - A Lot of Assistance Groomin - A Little Assistance Eatin - Total Assistance CURRENT [facility] Activity Raw Score: 11 CURRENT [facility] Activity Functional Limitation/Modifier: 70.42% Currently Impaired [...] assessment and plan as documented by the SUPERVISOR COUNSELING AND GUIDANCE with my changes/additions added. Patient is a [...] ICH x 7 days - Statin - PT/OT/MASSAGE OPERATOR evaluation Pulmonary: No acute issues, appears to [...] and other supportive care as per the SUPERVISOR COUNSELING AND GUIDANCE note from the same day This patient [...] Neurocritical Care Attending * Balbir Mccoy, DIRECTOR 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 - 08/04/2024 7:44 AM EDT NEUROCRITICAL CARE [...] Visual richards intact to confrontation. PERRL. 3mm drug safety specialist III, IV and : EOMI. No nystagmus. [...] Issues O2 Sat (%): 94 % (08/04 07) O2 Device: room air (08/04 699) - Goal SpO2 >92%; wean FiO2 as tolerated - [id number], encourage pulmonary toileting Cards: Essential HTN HLD [...] TUBE FEEDING with meds (per DHT) - Gazelle Swallow Screening Result: failed=NPO Bowel regimen: - Last Bowel Movement: (prior to admission) - Senna 17.2 mg Q12H, miralax at bedtime Stress ulcer prophylaxis: - none Dysphagia - DHT placed - MASSAGE OPERATOR following - Tube feed: Vital AF with [...] not indicated DVT: subcutaneous heparin [x] Lines Mcclure: n/a Gallegos: inserted 08/02, (indication: strict I&O [...] the assigned neurocritical care provider (resident, fellow, SUPERVISOR COUNSELING AND GUIDANCE, orPA) or page/call the corresponding number below NCC1 (Beds 9378-1891): [place] # [phone], pager #[phone] NCC2 (Beds 3216-0181, 12 Nando, and overflow): [place] #: [phone], pager #[phone] * Rafael Garcia MD - 08/03/2024 2:16 PM EDT NEUROVASCULAR Consult Daily Progress Note IDENTIFYING INFORMATION Lindsay Acuna MR# [id number] 08/03/2024 HISTORY OF PRESENT ILLNESS Lindsay Acuna is a 78 y.o. female with PMH significant for CAD, HTN, HLD, T2DM, Afib (on Eliquis, although patient reports she has not been taking it) who presents with L hemiplegia, slurred speech. She was last seen normal by her at 0915, later found down with slurred speech and L hemiplegia. She presented to [facility] and was seen on Telestroke, NIHSS 12. [...] speech and L hemiplegia. She presented to [facility] and was seen on Telestroke, NIHSS 12. [...] workup. Delbert Kasper MD * Nohelia Oconnell, RIKI - 08/03/2024 12:09 PM EDT Acute Care MASSAGE OPERATOR Speech/Language/Cognitive Evaluation Best mode of Communication: spoken language (regular speech) Discharge Recommendations: Based on the below outcome measures/assessment score(s) and MASSAGE OPERATOR clinicaljudgment, discharge destination recommendation is: (Skilled speech therapy services at next level of care) Barriers to discharge home: Cognitive impairments that impact safety and independence Supporting factors for discharge setting: Impaired swallow function limiting nutritional status andsafety with oral intake Acute MASSAGE OPERATOR Outcomes Tracking Communicate basic wants and needs?: [...] speech and L hemiplegia. She presented to [facility] and was seen on Telestroke,NIHSS 12. CTH [...] 0 Asthenia (A): 0 Strain (S): 0 MASSAGE OPERATOR Outcomes / Standardized Measures Score The Orientation [...] unable to respond. Total Score: 12 Acute MASSAGE OPERATOR Goals Plan of Care by RIKI Hayes at 08/03/2024 11:25 AM Version 1 of 1 Problem: Dysphagia Goal: Ongoing Assessment - Patient will participate in ongoing assessment by accepting various PO consistency trials with appropriate participation/oral acceptance and no significant respiratory complications to determine readiness for diet advancement Outcome: Ongoing Problem: MASSAGE OPERATOR - Cognition Goal: Orientation Log - Patient [...] better assess deficits and most appropriately guide MASSAGE OPERATOR plan of care Outcome: Ongoing Speech Language [...] of session: bed alarm Needs in reach. MASSAGE OPERATOR Evaluation and Treatment Time Speech Eval - Sound Production W/Lang Comp and Exp 31423: 11 Swallowing Eval 41939: 10 Upon discontinuation of Acute Care Speech [...] on the below outcome measures/assessment score(s) and MASSAGE OPERATOR clinicaljudgment, discharge destination recommendation is: Deferred to PT/OT recomendations related to mobility Current therapy frequency recommendation in acute care: Swallow Therapy Frequency: 5 times a week Acute MASSAGE OPERATOR Outcomes Tracking Communicate basic wants and needs?: [...] speech and L hemiplegia. She presented to [facility] and was seen on Telestroke,NIHSS 12. 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 Prior MASSAGE OPERATOR history: No prior speech history per chart [...] and Liquids Trialed Modality Amount Ice Teaspoon, MASSAGE OPERATOR-fed 3x Thin Teaspoon 3x Oral Phase Function [...] Patient presents with presumed pharyngeal phase impairments. Gazelle Swallow Screen: (administered by: ZOE) Gazelle Swallow Screening Screening Exclusion Criteria: none, continue with Tabitha Swallow Screening Cognitive Screen: Orientation: able to [...] Ok for ice chips with RN supervision. MASSAGE OPERATOR will continue to follow for ongoing dysphagia management. Patient Education/Instruction Learners: Patient Education provided: Dysphagia recommendation risk: benefit analysis, Role of this discipline Teaching method: Verbal Education/Instruction Learner response: Needs review Learning preferences: Auditory Learning considerations: Cognition Plan for next session: 08/03: Good Prognosis, ongoing dysphagia management to determine readiness for diet advancement vs instrumental. Acute MASSAGE OPERATOR Goals Plan of Care by RIKI Hayes at 08/03/2024 11:25 AM Version 1 of 1 Problem: Dysphagia Goal: Ongoing Assessment - Patient will participate in ongoing assessment by accepting various PO consistency trials with appropriate participation/oral acceptance and no significant respiratory complications to determine readiness for diet advancement Outcome: Ongoing Problem: MASSAGE OPERATOR - Cognition Goal: Orientation Log - Patient [...] better assess deficits and most appropriately guide MASSAGE OPERATOR plan of care Outcome: Ongoing Speech Language Pathologist: RIKI Hayes, BCS-S Board Certified Specialist in Swallowing and Swallowing Disorders Available via Kappa Prime Chat Time In: 1130 Time Out: 1151 Total Visit Time: 21 minutes Total Treatment Time (skilled, billable minutes): 21 minutes Non-billable assistance during session: none Assisted by during session: Patient's PPE used during patient interaction: gloves Patient location/status at end of session: bed with head of bed elevated Patient alarms at end of session: bed alarm Needs in reach. MASSAGE OPERATOR Evaluation and Treatment Time Speech Eval - Sound Production W/Lang Comp and Exp 87765: 11 Swallowing Eval 33198: 10 Upon discontinuation of Acute Care Speech Therapy Services or patient discharge from the hospital this note represents the current Speech Therapy Discharge Summary * Richard Mejia MD - 08/03/2024 10:30 AM EDT I have independently seen and examined the patient on 08/03/24. I agree with the history, examination, assessment and plan as documented by the SUPERVISOR COUNSELING AND GUIDANCE with my changes/additions added. Patient is a [...] the setting of ICH - Statin - PT/OT/MASSAGE OPERATOR evaluation Pulmonary: No acute issues, appears to [...] and other supportive care as per the SUPERVISOR COUNSELING AND GUIDANCE note from the same day This patient [...] [facility], [facility] and other care providers. Management [...] with assistance from spouse Care Management Plan PRODUCT PICKER met with Patient and Spouse at bedside to complete Initial Assessment. They were agreeable to SW visit. Patient was lethargic though able to answer some short questions. Patient consented to Spouse assisting with assessment. Spouse/Patient report that Patient has never completed a HCPOA. They expressed interest, and PRODUCT PICKER will follow to complete document when Patient is more alert and oriented. Spouse reports himself and Patient live in a ranch-style home with strong supports from their community, including 2 neighbors that have assisted at this time. He noted that himself and Patient recently returned from a visit to [facility] for their 50 anniversary. Spouse reports that their 2 children will be visiting soon. PRODUCT PICKER explained SW role and offered resources. Spouse [...] Name and Contact information: Ike Acuna P: [phone] Adult Child(jj), List All Adult Children: Yes Name and Contact information: Donnell Acuna P: [phone]; Nathen Acuna P: [phone] Would you like to add additional adult [...] for Advance Care Planning? : Patient Agreeable (PRODUCT PICKER to follow for HCPOA completion when Patient is more alert and oriented) Medication Management Does the patient have prescription insurance coverage? : Yes Is the patient on Anticoagulation? : Yes (Per chart review, Patient is on anticoagulation but has not been taking it (does not recall the last time she took a dose)) Provider or Clinic that manages Anticoagulation?: (unspecified at this time) [facility] [address] [place] [phone] [phone] [address] Living Environment and Support System Is the patient from a facility or [place]?: No Living Environment: House ("1 bedroom ranch") Patient Caregiving Responsibilities: Self Patient-identified caregiver/support network: Family, Friends, Neighbors, Nondenominational Who does the patient identify as a [...] themselves at home? : Unable to assess Accredited Farm Manager Does the patient or sales representative express financial concerns? : No Chela Snyder Social Work Student Available by Secure Chat Cosigned by OWEN Keller at 08/03/2024 11:20 AM EDT * Balbir Mccoy, DIRECTOR 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 - 08/03/2024 7:40 AM EDT NEUROCRITICAL CARE DAILY NOTE HOSPITAL VISIT DEMOGRAPHICS Patient: Lindasy Acuna Code status: Full Code Admission date: [...] Visual richards intact to confrontation. PERRL. 3mm drug safety specialist III, IV and : EOMI. No nystagmus. [...] SpO2 >92%; wean FiO2 as tolerated - [id number], encourage pulmonary toileting Cards: Essential HTN HLD [...] - Bowel regimen: - Last Bowel Movement: (PAROLE DIRECTOR) - Senna, miralax Stress ulcer prophylaxis: - none Dysphagia - DHT placed - MASSAGE OPERATOR following - Tube feed: Vital AF with [...] prophylaxis - rationale: post thrombectomy [x] Lines Mcclure: n/a Gallegos: inserted 08/02, (indication: strict I&O) [...] the assigned neurocritical care provider (resident, fellow, SUPERVISOR COUNSELING AND GUIDANCE, orPA) or page/call the corresponding number below NCC1 (Beds 4625-1023): [place] # [phone], pager #[phone] NCC2 (Beds 2997-7462, 12 Nando, and overflow): Retention[employer] #: [phone], pager #[phone] * Nando Caceres MD - 08/03/2024 6:00 [...] WBC/Hgb/Hct/Plts: 8.43/13.5/42.8/227 (08/03 1) Na/K+/Phos/Mg/Ca: 138/4.3/3.5/2.1/-- (08/03 0002) Bun/Creat/Cl/CO2/Glucose: 18/1.35/103/23/151 (08/03 1) Lab Results Component [...] nccu Neurosurgery signing off Please page NS2 ([id number]) with questions Complexity. Hypocalcemia - Continue to [...] any questions, Name: Andreas Ga RPH Phone: [phone] Date/Time: 08/02/2024 10:57 PM * Richard Mejia MD - 08/02/2024 6:01 PM EDT I have independently seen and examined the patient on 08/02/24. I agree with the history, examination, assessment and plan as documented by the SUPERVISOR COUNSELING AND GUIDANCE with my changes/additions added. Patient is a [...] to determine stroke burden - Statin - PT/OT/MASSAGE OPERATOR evaluation Pulmonary: No acute issues, appears to [...] stage 3a - Maintain euvolemia GI/Nutrition: - MASSAGE OPERATOR evaluation - Bowel regimen to prevent constipation [...] and other supportive care as per the SUPERVISOR COUNSELING AND GUIDANCE note from the same day This patient [...] MD Neurocritical Care Attending documented in this encounterOS[facility] Consult note* Niru Koch MD - 08/10/2024 [...] today. Consent obtained by at bedside. - MASSAGE OPERATOR eval: none - RD eval: none PAST [...] ASSESSMENT/RECOMMENDATIONS: - primary team feels that termite treater helper enteric nutrition is warranted in s/o CVA. Patient is appropriate for endoscopic PEG placement. Consent obtained from at bedside. - we will tentatively plan for EGD for PEG placement 08/09 as add on case. See pre procedure recommendations below. For PEG: - Ancef ordered (1 gm if patient is <80 kg; 2 gm if patient is >80 kg) as "financial consultant to the procedure"). - Please make NPO [...] Hepatology, and Nutrition Clinical Fellow PGY-4 Pager: [phone] For urgent/stat calls 5pm to 7am or all day on the weekend, please page the on- call GI fellow on [employer]. IM Consult Serv [facility] --> [facility] STAT/NEW GI consults For follow up questions regarding this patient, contact the IBD consults fellow or DAHLIA on [employer]. IM Consult Serv GHN --> [facility] [...] medical decisions as outlined. Need for termite treater helper non-oral enteric nutrition per primary team. We will facilitate this with planned PEG tube placement. Before placement, non-GI management of TF should be established to avoid delays. David Woods M.D. 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 Prema Ramos M.D. Lapel Stitcher Department of Neurosurgery [facility] * Taran Traore, DIRECTOR 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 - 08/02/2024 2:44 PM EDT Neurovascular Evaluation [...] speech and L hemiplegia. She presented to [facility] and was seen on Telestroke, NIHSS 12. [...] solution Intravenous Continuous PRN Bebo Barboza APRN- CHUTE PULLER New Bag at 08/02/24 1507 Scheduled Meds: [...] protrudes midline Motor: L hemiplegia Reflexes: Coordination: Mgylmd-nh-ixut intact on the R, unable to test [...] Continuous telemetry -PT, OT, Speech and social group worker consults Other problems: Complexity. Any conditions listed [...] speech and L hemiplegia. She presented to [facility] and was seen on Telestroke, NIHSS 12. [...] Delbert Kasper MD documented in this encounterOS[facility] Procedure note* Tanja Hunter, RIKI - [...] the below outcome measures/assessment score(s), MBS, and MASSAGE OPERATOR clinical judgment, discharge destination recommendation is: IP Rehab Facility. Patient demonstrates good candidacy for discharge to: IRF. Additional supporting factors include: Impaired swallow functionlimiting nutritional status and safety with oral intake. Acute MASSAGE OPERATOR Outcomes Tracking Communicate basic wants and needs?: [...] speech and L hemiplegia. She presented to [facility] and was seen on Telestroke, NIHSS 12. [...] Thin Barium: teaspoon x2, straw x2 Varibar [place] Barium: straw x1 Varibar Thin [place] Barium: [...] recommend NPO and nonoral meds. Ongoing skilled MASSAGE OPERATOR services indicated to address deficits and maximize [...] Therapeutic Interventions Met: yes, treatment indicated Acute MASSAGE OPERATOR Goals Plan of Care by RIKI Gonzales at 08/06/2024 9:33 AM Version 1 of 1 Problem: Dysphagia Goal: MBS - Patient will participate in Modified Barium Swallow (MBS) Study to objectively assess oropharyngeal swallow function to most appropriately guide MASSAGE OPERATOR plan of care Outcome: Met Goal: Bolus [...] Treatment Time (skilled, billable minutes): 20 minutes MASSAGE OPERATOR Evaluation and Treatment Time MBS/Motion Fluoroscopic Swallowing Eval 90957: 20 Speech Language Pathologist: RIKI Gonzales Time [...] end of session: none altered (RN present) MASSAGE OPERATOR Evaluation and Treatment Time MBS/Motion Fluoroscopic Swallowing Eval 31284: 20 Upon discontinuation of Acute Care Speech Therapy Services or patient discharge from the hospital this note represents the current Speech Therapy Discharge Summary documented in [facility] Hospital Discharge instructions* Discharge Instructions* Jhoana CasarezJASIEL-FUN HOUSE ATTENDANT - 08/06/2024 8:38 AM EDT Please take [...] you at all times. Stroke Education: visit [email or web address] What are the most common symptoms of [...] all ordered medications [x] Avoid non-prescription or fhfg-pxa-rkuhnwe medication not cleared by your physician [x] [...] may call the neurovascular doctors office at [phone], if you have questions Mon-Fri between 8:30 am and 4:30 pm. - For off hours or the weekend you may call the office or the hospital metalizing machine operator automatic at and ask for the stroke resident financial consultant to be paged. - If you have any other questions or needs, please call Aniyah DOSS, RN, Stroke Nurse Navigator at [phone] Mon-Mon between 7:00am and 3:00pm. - Additional assistance may be found by reaching out to our Case Management Office at [phone]. *In the event of an Emergency: If you have a physical or psychiatric emergency call 911 or go to your local emergency department. You should also call your outpatient provider's emergency number. Other reference numbers: [facility] Intake [facility] at [phone]; [facility] at 947-206-4173; or Suicide Prevention Hotline at 343-406-4958. *Helpful phone numbers: Free Crisis Hotline: 1-444-312-TALK ( ) Suicide Hotline: 120.337.8157 Seniors Suicide Hotline: 977.107.9647 [facility] Youth: 683.596.6991 Mental Health of [place]: 971.405.6527 (free counseling) [facility] Access Hotline: 872-171-EFHO (543-284-6349) 24-hour crisis text hotline: Text the word "4hope" to 289-296 for crisis support. Texting this number is [...] qualify for Medicaid/public assistance: The [facility] Department of Job and Family Services can now process zayas (TANF), food (SNAP) and Medicaid Applications over the phone. Please call [phone] (5996) and apply over the phone or apply online at www.benefits.[place].gov. Monday-Monday 8am-12pm noon. Medication Assistance Programs hubbuzz.com Club members can buy 100+ common prescriptions for FREE, $3 or $6. Annual membership is $36 for individuals and $72 for families (up to 6 people, including pets). Sign up online or enroll at your nearest pharmacy! -[employer], web site can provide a significant number of coupons for medications at a much lower raymundo. [place] Department of Aging The Department of Aging administers programs and services to meet the needs of older [facility]. Services and resources offered per county may include transportation, housekeeping, meals and nutrition, personal care, case management, safety monitoring, home medical equipment, legal services, manager of financial reporting, health and wellness, education, caregiver support, respite care, etc. Call to be connected to the area agency on aging serving your community or visit aging.[place].gov/find-services. Request a consultation with a community resource expert at ltssi.age.[place].gov/ [facility] Stroke Support The [facility] Stroke Support Group is for stroke survivors, friends, and family members. Meets on the Monday of each month from 6:30pm-7:30pm at [facility] ([address]; [place] [address]). Contact Chela Nolan, at [phone] or [email or web address]. If you are outside of the [place] area, contact The [place] [employer] at www.stroke.org or 5-661-7-STROKE or for support groups in your area. You may also refer to the Your Care after a Stroke education booklet at [email or web address] for additional resources. * Medications* PATRIZIA Miner - 08/06/2024 8:38 AM EDT Know your medicines Make sure you know why you are taking each medicine. Make a master list of all your medicines. Write down the medicine names and doctors' names. Includedoses and side effects too. And write down why you take each medicine. Include all prescription skgjyde-uro-puqtvjj medicines, vitamins, and supplements. Keep this list [...] plan your refills so that you can product picker all your medicines at the same [...] every 6 months. documented in this encounterOS[facility]03-[facility] History and physical note* PATRIZIA Lam [...] Visual richards intact to confrontation. PERRL. 3mm drug safety specialist III, IV and : EOMI. No nystagmus. [...] SpO2 >92%; wean FiO2 as tolerated - WEW2BDQ, encourage pulmonary toileting Cards: Essential HTN HLD [...] - TTE: p - 08/02 troponin: p 08/02 ECG: p Renal/: [...] the assigned neurocritical care provider (resident, fellow, SUPERVISOR COUNSELING AND GUIDANCE, orPA) or page/call the corresponding number below NCC1 (Beds [phone]): Pernell # [phone], pager #[phone] NCC2 (Beds 5649-7408, 12 Nando, and overflow): [place]ell #: [phone], pager #[phone] Cosigned by Richard Mejia MD at 08/02/2024 11:14 PM EDT documented in this encounterOSU [facility]03-21-2025 Nurse Note* Rachell Ruffin RN - 08/02/2024 3:13 PM EDT 9 cc air instilled in right radial TR band @ 1520. Glasses placed in bag wit label. Sent to PACU with patient on cart. documented in this encounterOSU [facility]03-21-2025 Discharge summary [facility] Medical Records Department [address] [place] [address] Emergency Department Summary 08/02/24 MR#: [id number] Acct: [id number] Name: LINDSAY ACUNA Rep #:[id number] : [...] the EMR. states they returned home from [facility] about 1.5-2 weeks ago, and they both had colds. He is better, but she is "on round 2." [facility] Medical History Paroxysmal atrial fibrillation with RVR [...] 71.4 H Lymph % (Auto) 17.9 L [place] % (Auto) 8.9 Eos % (Auto) 1.0 [...] on 08/02/2024 at 1250 hours. Reading Location: [facility] Head/Neck CTA 08/02/24 12:24 IMPRESSION: RIGHT CAROTID: Mild degree of calcific plaque at the origin of the right internal carotid artery. LEFT CAROTID: Mild degree of calcific plaque at the origin of the left internal carotid artery. VERTEBRALS: Dominant left vertebral artery INTRACRANIAL: Unremarkable Other impression: No significant stenosis seen. Reading Location: [place] [address] Rhythm Strip Rhythm Strip: A-fib Rate: 90 Ectopy: None EKG Initial EKG: Attestation: I personally reviewed and interpreted this EKG as follows: Interpretation: No Acute Injury Pattern, Atrial Fibrillation and Non-Specific ST Changes Management Discussion w/another healthcare provider: Bonding [employer] Composite Fabricator ([facility] stroke neurology) and Radiologist Stroke Documentation [...] min), Including time spent:, Discussing w/Patient &/or Family/Earth Observations Chief Scientist, Discussing w/Consultants, Arranging Admission or Transfer and [...] MD [Primary Care Provider] - Print Language: Kittitian Disposition Disposition: Acute Care Hospital [facility] What to do if you have Problems For any increased pain, shortness of breath, bleeding, nausea or vomiting, chestpain, or any unexpected problems, contact your Primary Care Provider. Call [facility] ([phone]) or report tothe closest Emergency Room. Call 911 if necessary. 08/02/24 1316 Cosigner Signature (if applicable): CC: Dr. Kameron Caruso MD ~ Signed [facility]03-21-2025 Radiology Diagnostic study note [facility] Imaging Services [address] [place] [id number] STROKE CTA Head AND Neck W/Con MR#: [id number] Acct: [id number] Name: LINDSAY ACUNA Rep #: [id number] : 1945 F 78 From: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 Date Resolved Date Hypertensive kidney disease with stage 3 chronic kidney disease 11/03/2020 11/05/2020 Diabetes mellitus with renal complications 05/0111/03/2020 PURE HYPERCHOLESTEROLEM 11/27/19 14 DIABETES MELLITUS TYPE II-UNCOMPL 11/26/2013 documented as of this encounter (statuses as of 03/02/2022) [facility] of [facility] illness Narrative* Problem Noted Date Resolved Date Hypertensive kidney disease with stage 3 chronic kidney disease 11/03/2020 11/05/2020 Diabetes mellitus with renal complications 05/0111/03/2020 PURE HYPERCHOLESTEROLEM 11/27/19 14 DIABETES MELLITUS TYPE II-UNCOMPL 11/26/2013 documented as of this encounter (statuses as of 03/02/2022) [facility] of [facility] illness Narrative* Problem Noted Date Resolved Date Hypertensive kidney disease with stage 3 chronic kidney disease 11/03/2020 11/05/2020 Diabetes mellitus with renal complications 05/0111/03/2020 PURE HYPERCHOLESTEROLEM 11/27/19 14 DIABETES MELLITUS TYPE II-UNCOMPL 11/26/2013 documented as of this encounter (statuses as of 04/11/2022) [facility] of Past illness Narrative* Problem Noted Date Resolved Date Hypertensive kidney disease with stage 3 chronic kidney disease 11/03/2020 11/05/2020 Diabetes mellitus with renal complications 05/0111/03/2020 PURE HYPERCHOLESTEROLEM 11/27/19 14 DIABETES MELLITUS TYPE II-UNCOMPL 11/26/2013 documented as of this encounter (statuses as of 05/27/2022) [facility] of Past illness Narrative* Problem Noted Date Diagnosed Date Resolved Date Hypertensive kidney disease with stage 3 chronic kidney disease 11/03/2020 11/05/2020 Diabetes mellitus with renal complications 05/01/2014 11/03/2020 PURE HYPERCHOLESTEROLEM 07/1 09/2013 DIABETES MELLITUS TYPE II-UNCOMPL 11/26/2013 documented as of this encounter (statuses as of 11/25/2022) [facility] of Past illness Narrative* Problem Noted Date Diagnosed Date Resolved Date Hypertensive kidney disease with stage 3 chronic kidney disease 11/03/2020 11/05/2020 Diabetes mellitus with renal complications 05/01/2014 11/03/2020 PURE HYPERCHOLESTEROLEM /1 09/2013 DIABETES MELLITUS TYPE II-UNCOMPL 11/26/2013 documented as of this encounter (statuses as of 04/08/2023) [facility] of Past illness Narrative* Problem Noted Date Diagnosed Date Resolved Date Hypertensive kidney disease with stage 3 chronic kidney disease 11/03/2020 11/05/2020 Diabetes mellitus with renal complications 05/01/2014 11/03/2020 PURE HYPERCHOLESTEROLEM 07/1 09/2013 DIABETES MELLITUS TYPE II-UNCOMPL 11/26/2013 documented as of this encounter (statuses as of 04/08/2023) [facility] CenterDischarge summary Author Pieter Morgan [facility] Note Date/Time August 02, 2024 1:1 6pm [facility] Medical Records Department [address] [place] [address] Emergency Department Summary 08/02/24 MR#: [id number] Acct: [id number] Name: LINDSAY ACUNA Rep #:[id number] : [...] the EMR. states they returned home from [facility] about 1.5-2 weeks ago, and they both had colds. He is better, but she is "on round 2." [facility] Medical History Paroxysmal atrial fibrillation with RVR [...] 71.4 H Lymph % (Auto) 17.9 L [place] % (Auto) 8.9 Eos % (Auto) 1.0 [...] on 08/02/2024 at 1250 hours. Reading Location: [facility] Head/Neck CTA 08/02/24 12:24 IMPRESSION: RIGHT CAROTID: Mild degree of calcific plaque at the origin of the right internal carotid artery. LEFT CAROTID: Mild degree of calcific plaque at the origin of the left internal carotid artery. VERTEBRALS: Dominant left vertebral artery INTRACRANIAL: Unremarkable Other impression: No significant stenosis seen. Reading Location: [facility]-1 Rhythm Strip Rhythm Strip: A-fib Rate: 90 Ectopy: None EKG Initial EKG: Attestation: I personally reviewed and interpreted this EKG as follows: Interpretation: No Acute Injury Pattern, Atrial Fibrillation and Non-Specific ST Changes Management Discussion w/another healthcare provider: [employer] ([facility] stroke neurology) and Radiologist Stroke Documentation [...] min), Including time spent:, Discussing w/Patient &/or Family/Earth Observations Chief Scientist, Discussing w/Consultants, Arranging Admission or Transfer and [...] MD [Primary Care Provider] - Print Language: Kittitian Disposition Disposition: Acute Care Hospital Discharge Location: [facility] [place] What to do if you have Problems For any increased pain, shortness of breath, bleeding, nausea or vomiting, chestpain, or any unexpected problems, contact your Primary Care Provider. Call [facility] ([phone]) or report to the closest Emergency Room. Call 911 if necessary. 08/02/24 1316 <Electronically signed by Pieter Morgan MD> Cosigner Signature (if applicable): CC: Dr. Kameron Caruso MD ~ Signed [facility] Work Phone: Evaluation note* Diagnosis Need for vaccination- Primary Need for prophylactic vaccination and inoculation against unspecified single disease [facility]* Diagnosis Type 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, unspecified CKD stage, unspecified whether termite treater helper insulin use (HCC)- Primary Essential hypertension, benign Hyperlipidemia, unspecified hyperlipidemia type Stage 3b chronic kidney disease (HCC) Hypothyroidism, unspecified type Memory loss documented in this encounter [facility] note* Diagnosis Type 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, unspecified CKD stage, unspecified whether termite treater helper insulin use (HCC)- Primary documented [facility]* Diagnosis Hyperlipidemia, unspecified hyperlipidemia type Essential hypertension, benign Type 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, unspecified CKD stage, unspecified whether group home insulin use (HCC) documented [facility]* Diagnosis Type 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, unspecified CKD stage, unspecified whether group home insulin use (HCC) Essential hypertension, benign Hyperlipidemia, unspecified hyperlipidemia type documented in this encounter [facility] note* Diagnosis Acute midline low back pain without sciatica- Primary documented [facility]* Diagnosis Type 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, unspecified CKD stage, unspecified whether termite treater helper insulin use (HCC)- Primary [facility] this encounter [facility]* Diagnosis Essential hypertension, benign- Primary Hypothyroidism, unspecified type Type 2 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, without long-term current use of insulin (HCC) Hyperlipidemia, unspecified hyperlipidemia type Chronic kidney disease, stage 3a (HCC) Edema of left lower leg Wellness examination documented in this encounter [facility] note* Diagnosis Type 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, unspecified CKD stage, unspecified whether termite treater helper insulin use (HCC) documented [facility] this encounter [facility]* Diagnosis Allergic contact dermatitis due to plant- Primary Contact dermatitis and other eczema due to plants (except food) documented [facility] this encounter [facility]* Diagnosis Rash- Primary Rash and other nonspecific skin eruption documented [facility] this encounter [facility]* Diagnosis Type 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, unspecified CKD stage, unspecified whether group home insulin use (HCC)- Primary Essential hypertension, benign Chronic kidney disease, stage 3a (HCC) Hyperlipidemia, unspecified hyperlipidemia type Hypothyroidism, unspecified type Edema of left lower leg Memory loss documented in this encounter [facility] note* Diagnosis Essential hypertension, benign- Primary Type 2 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, without long-term current use of insulin (HCC) Chronic kidney disease, stage 3a (HCC) Hyperlipidemia, unspecified hyperlipidemia type Hypothyroidism, unspecified type Edema of left lower leg Memory loss Urinary incontinence, unspecified type Irregular heart beat Cardiac dysrhythmia, unspecified Atrial fibrillation, unspecified type (HCC) documented in this encounter [facility] note* Diagnosis Atrial fibrillation, unspecified type (HCC)- Primary Hypothyroidism, unspecified type Need for malaria prophylaxis documented in this encounter [facility] note* Diagnosis History of traveler's diarrhea- Primary Personal history of other diseases of digestive system documented in this encounter [facility] note* Diagnosis History of traveler's diarrhea Personal history of other diseases of digestive system documented in this encounter [facility] noteNo assessment information availableWWayne [facility] Work Phone: Evaluation note* Diagnosis Acute ischemic right MCA stroke- Primary Unspecified cerebral artery occlusion with cerebral infarction Cerebrovascular accident (CVA), unspecified mechanism Renal disease (High Serum Creatinine) Unspecified disorder of kidney and ureter Type 2 diabetes mellitus with hyperglycemia Type II or unspecified type diabetes mellitus without mention of complication, not stated as uncontrolled [facility] No data available for this section [facility] Reason for referral (narrative)* Outpatient Procedure (Routine) - Pending Review Specialty Diagnoses / Procedures Referred By Contac t Ref[facility] Diagnoses Atrial fibrillation, unspecified type (HCC) Procedures ECHO ECHO TTHRC R-T 2D W/WOM-MODE COMPL SPEC&COLR D Kameron Caruso MD [address] [place] [address] [facility] [address] [place] [address] Referral ID Status Reason Start Date Expiration Date Visits Requested Visits Authorized [id number] Pending Review Auto-Generat ed Referral 05/31/2024 05/31/2025 1 1 * Outpatient Procedure (Routine) - New Request Specialty Diagnoses / Procedures Referred By Qiana almodovar Referred [facility] Diagnoses Irregular heart beat Procedures ECG COMPLETE ECG ROUTINE ECG W/LEAST 12 LDS W/I&R Kameron Caruso MD [address] [place] [address] [facility] [place] [address] [place] [address] Referral ID Status Reason Start Date Expiration Date Visits Requested Visits Authorized [id number] New Request Auto-Generat ed Referral 05/31/2024 05/31/2025 1 1 [facility]No reason for referral information availableWWayne [facility] Work Phone: Reason for visit Narrative* Auth/Cert Specialty Diagnoses / Procedures Referred By Qiana almodovar Referred To Contact Diagnoses Acute ischemic right MCA stroke Cerebrovascular Accident (Level A Ishemic Stroke) Prema Rodgers MD [address] [place] [address] Phone: tel: fax: [facility] [address] [place] [address] Referral ID Status Reason Start Date Expiration Date Visits Re quested Visits Authorized [id number] 1 1 [facility] Summary Purpose Family History No Family History Records Found Relationship Condition Age at Onset Recorded Date/T mones mother Diabetes mellitus Unknown Hypertension Unknown Psychiatric disorder Unknown grandmother Malignant neoplasm Unknown sister Disorder of thyroid Unknown Advance Directives No Advanced Directives Records FoundDocuments on File Type Date Recorded Patient Waiter/Waitress First Class 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 Advance Directives and Living Will Power of Librarian Assistant Latest Code Status on File Code Status Date Activated Date Inactivated Comments Full Code 01/09/2019 10:16 AM Latest Code Status on File Code Status Date Activated Date Inactivated Comments Full Code 10/16/2019 9:16 AM Full Code 01/09/2019 10:16 AM 01/09/2019 2:23 PM Documents on File Type Date Recorded Patient Waiter/Waitress First Class 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 Advance Directive(s) 11/07/2018 6:45 AM Advance Directive(s) 09/29/2015 10:09 PM Advance Directive Response Recorded Date/ Time Living Will No August 02, 2024 12:46pm Do you have a Healthcare Power of Librarian Assistant? No August 02, 2024 12:46pm Date Activated [...] patient had a polyp identified by on {time:11111}. Biopsies {are/were w not:9034} taken. The patient's usual bowel pattern is {bowel pattern:16723}. Bowel movements {bowel changes:90905} . {abd pain:25648}. The patient has noted{bleeding with BM:31952}. The patient {does/do/not:89989} have a family history of colon polyps. The patient {does/do/not:84216} have a family history of colon cancer. documented in this encounter* Instructions* Nadja Mejía, RN - 10/16/2019 .Colonoscopy: What to expect [...] WORK September 10, 2024 5:0 0am AFIB ([facility]) October 02, 2024 9:29a m Additional Source Comments INFORMATION SOURCE (unrecogn ized section and content) DATE CREATED AUTHOR 08/31/2018 [facility] [employer] ([place]) DATE CREATED AUTHOR AUTHOR'S ORGANIZ ATION 10/18/2019 [facility] DATE CREATED AUTHOR AUTHOR'S ORGANIZ ATION 08/04/2024 [facility] DATE CREATED AUTHOR AUTHOR'S ORGANIZ ATION 08/07/2024 [facility] DATE CREATED AUTHOR AUTHOR'S ORGANIZ ATION 08/24/2024 [facility] DATE CREATED AUTHOR AUTHOR'S ORGANIZ ATION 09/01/2024 [facility] DATE CREATED AUTHOR AUTHOR'S ORGANIZ ATION 10/13/2024 [facility] DATE CREATED AUTHOR AUTHOR'S ORGANIZ ATION 10/31/2024 [facility] Source Comments (unrecognize d section and content) In the event this informatio n is protected by the Federal Confidentiality of Alcohol and Drug Abuse Patient Records regulations: The Federal rules restrict any use of the information to criminally investigate or prosecute any alcohol or drug abuse patient.[facility] the event this information is protected by the Federal Confidentiality of Alcohol and Drug Abuse Patient Records regulations: The Federal rules restrict any use of the information to criminally investigate or prosecute any alcohol or drug abuse patient.[facility] Center[facility] the event this information is protected by the Federal Confidentiality of Alcohol and Drug Abuse Patient Records regulations: The Federal rules restrict any use of the information to criminally investigate or prosecute any alcohol or drug abuse patient.[facility] Center[facility] the event this information is protected by the Federal Confidentiality of Alcohol and Drug Abuse Patient Records regulations: The Federal rules restrict any use of the information to criminally investigate or prosecute any alcohol or drug abuse patient.[facility] Center[facility] the event this information is protected by the Federal Confidentiality of Alcohol and Drug Abuse Patient Records regulations: The Federal rules restrict any use of the information to criminally investigate or prosecute any alcohol or drug abuse patient.[facility] CenterIn the event this information is protected by the Federal Confidentiality of Alcohol and Drug Abuse Patient Records regulations: The Federal rules restrict any use of the information to criminally investigate or prosecute any alcohol or drug abuse patient.[facility] CenterIn the event this information is protected by the Federal Confidentiality of Alcohol and Drug Abuse Patient Records regulations: The Federal rules restrict any use of the information to criminally investigate or prosecute any alcohol or drug abuse patient.[facility] CenterIn the event this information is protected by the Federal Confidentiality of Alcohol and Drug Abuse Patient Records regulations: The Federal rules restrict any use of the information to criminally investigate or prosecute any alcohol or drug abuse patient.[facility] CenterIn the event this information is protected by the Federal Confidentiality of Alcohol and Drug Abuse Patient Records regulations: The Federal rules restrict any use of the information to criminally investigate or prosecute any alcohol or drug abuse patient.[facility] CenterIn the event this information is protected by the Federal Confidentiality of Alcohol and Drug Abuse Patient Records regulations: The Federal rules restrict any use of the information to criminally investigate or prosecute any alcohol or drug abuse patient.[facility] CenterIn the event this information is protected by the Federal Confidentiality of Alcohol and Drug Abuse Patient Records regulations: The Federal rules restrict any use of the information to criminally investigate or prosecute any alcohol or drug abuse patient.[facility] CenterIn the event this information is protected by the Federal Confidentiality of Alcohol and Drug Abuse Patient Records regulations: The Federal rules restrict any use of the information to criminally investigate or prosecute any alcohol or drug abuse patient.[facility] CenterIn the event this information is protected by the Federal Confidentiality of Alcohol and Drug Abuse Patient Records regulations: The Federal rules restrict any use of the information to criminally investigate or prosecute any alcohol or drug abuse patient.[facility] CenterIn the event this information is protected by the Federal Confidentiality of Alcohol and Drug Abuse Patient Records regulations: The Federal rules restrict any use of the information to criminally investigate or prosecute any alcohol or drug abuse patient.[facility] CenterIn the event this information is protected by the Federal Confidentiality of Alcohol and Drug Abuse Patient Records regulations: The Federal rules restrict any use of the information to criminally investigate or prosecute any alcohol or drug abuse patient.[facility] CenterIn the event this information is protected by the Federal Confidentiality of Alcohol and Drug Abuse Patient Records regulations: The Federal rules restrict any use of the information to criminally investigate or prosecute any alcohol or drug abuse patient.[facility] CenterIn the event this information is protected by the Federal Confidentiality of Alcohol and Drug Abuse Patient Records regulations: The Federal rules restrict any use of the information to criminally investigate or prosecute any alcohol or drug abuse patient.[facility] CenterIn the event this information is protected by the Federal Confidentiality of Alcohol and Drug Abuse Patient Records regulations: The Federal rules restrict any use of the information to criminally investigate or prosecute any alcohol or drug abuse patient.[facility] CenterIn the event this information is protected by the Federal Confidentiality of Alcohol and Drug Abuse Patient Records regulations: The Federal rules restrict any use of the information to criminally investigate or prosecute any alcohol or drug abuse patient.[facility] CenterIn the event this information is protected by the Federal Confidentiality of Alcohol and Drug Abuse Patient Records regulations: The Federal rules restrict any use of the information to criminally investigate or prosecute any alcohol or drug abuse patient.[facility] CenterIn the event this information is protected by the Federal Confidentiality of Alcohol and Drug Abuse Patient Records regulations: The Federal rules restrict any use of the information to criminally investigate or prosecute any alcohol or drug abuse patient.[facility] CenterIn the event this information is protected by the Federal Confidentiality of Alcohol and Drug Abuse Patient Records regulations: The Federal rules restrict any use of the information to criminally investigate or prosecute any alcohol or drug abuse patient.[facility] CenterIn the event this information is protected by the Federal Confidentiality of Alcohol and Drug Abuse Patient Records regulations: The Federal rules restrict any use of the information to criminally investigate or prosecute any alcohol or drug abuse patient.[facility] CenterIn the event this information is protected by the Federal Confidentiality of Alcohol and Drug Abuse Patient Records regulations: The Federal rules restrict any use of the information to criminally investigate or prosecute any alcohol or drug abuse patient.[facility] CenterIn the event this information is protected by the Federal Confidentiality of Alcohol and Drug Abuse Patient Records regulations: The Federal rules restrict any use of the information to criminally investigate or prosecute any alcohol or drug abuse patient.[facility] CenterIn the event this information is protected by the Federal Confidentiality of Alcohol and Drug Abuse Patient Records regulations: The Federal rules restrict any use of the information to criminally investigate or prosecute any alcohol or drug abuse patient.[facility] CenterIn the event this information is protected by the Federal Confidentiality of Alcohol and Drug Abuse Patient Records regulations: The Federal rules restrict any use of the information to criminally investigate or prosecute any alcohol or drug abuse patient.[facility] CenterIn the event this information is protected by the Federal Confidentiality of Alcohol and Drug Abuse Patient Records regulations: The Federal rules restrict any use of the information to criminally investigate or prosecute any alcohol or drug abuse patient.[facility] Reason for Visit (unrecogniz ed section and [...] Comments request for medication Reason Comments [facility] requesting verbal agree to f [facility] Care Teams (unrecognized sec tion and content) Film Developing Machine Operator Relationship Specialty Start Date End Date Kameron Caruso MD [address] [facility] [place] [address] PCP - General Family Practice 09/21/15 Film Developing Machine Operator Relationship Specialty Start Date End Date Kameron Caruso MD [address] [facility] [place] [address] PCP - General Family Practice 09/21/15 Film Developing Machine Operator Relationship Specialty Start Date End Date Kameron Caruso MD [address] [facility] [place] [address] PCP - General Family Practice 09/21/15 Film Developing Machine Operator Relationship Specialty Start Date End Date Kameron Caruso MD [address] [facility] [place] [address] PCP - General Family Practice 09/21/15 Film Developing Machine Operator Relationship Specialty Start Date End Date Kameron Caruso MD [address] [facility] [place] [address] PCP - General Family Practice 09/21/15 Film Developing Machine Operator Relationship Specialty Start Date End Date Kameron Caruso MD [address] [facility] [place] [address] PCP - General Family Practice 09/21/15 Film Developing Machine Operator Relationship Specialty Start Date End Date Kameron Caruso MD [address] [facility] [place] [address] PCP - General Family Medicine 09/21/15 Film Developing Machine Operator Relationship Specialty Start Date End Date Kameron Caruso MD [address] [facility] [place] [address] PCP - General Family Medicine 09/21/15 Film Developing Machine Operator Relationship Specialty Start Date End Date Kameron Caruso MD [address] [facility] [place] [address] PCP - General Family Medicine 09/21/15 Film Developing Machine Operator Relationship Specialty Start Date End Date Kameron Caruso MD [address] [place] [address] PCP - General Family Medicine 09/21/15 Film Developing Machine Operator Relationship Specialty Start Date End Date Kameron Caruso MD [address] [place] [address] PCP - General Family Medicine 09/21/15 Film Developing Machine Operator Relationship Specialty Start Date End Date Kameron Caruso MD [address] [place] [address] PCP - General Family Medicine 09/21/15 Film Developing Machine Operator Relationship Specialty Start Date End Date Kameron Caruso MD [address] [place] [address] PCP - General Family Medicine 09/21/15 Film Developing Machine Operator Relationship Specialty Start Date End Date Kameron Caruso MD [address] [place] [address] PCP - General Family Medicine 09/21/15 Film Developing Machine Operator Relationship Specialty Start Date End Date Kameron Caruso MD [address] [place] [address] PCP - General Family Medicine 09/21/15 Film Developing Machine Operator Relationship Specialty Start Date End Date Kameron Caruso MD [address] [place] [address] PCP - General Family Medicine 09/21/15 Emma Sotomayor APRN.CNP [address] [place] [address] [facility] P[facility] 04/21/24 Mj Glover APRN.FUN HOUSE ATTENDANT [address] [place] [address] [facility] 04/30/24 Film Developing Machine Operator Relationship Specialty Start Date End Date Kameron Caruso MD [address] [place] [address] PCP - General Family Medicine 09/21/15 Emma Sotomayor APRN.FUN HOUSE ATTENDANT [address] [place] [address] [facility] P[facility] Family [facility] 04/21/24 Mj Glover APRN.FUN HOUSE ATTENDANT [address] [place] [address] [facility] 04/30/24 Film Developing Machine Operator Relationship Specialty Start Date End Date Kameron Caruso MD [address] [place] [address] PCP - General Family Medicine 09/21/15 Emma Sotomayor APRN.FUN HOUSE ATTENDANT [address] [place] [address] [facility] 04/21/24 Mj Glover DIRECTOR OF 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.FUN HOUSE ATTENDANT [address] [place] [address] [facility] 04/30/24 Film Developing 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 [address] [facility] 04/21/24 Mj Glover APRN.FUN HOUSE ATTENDANT [address] [facility] [place] [address] [facility] 04/30/24 Film Developing Machine Operator Relationship Specialty Start Date End Date Kameron Caruso MD [address] [facility] [place] [address] PCP - General Family Medicine 09/21/15 Emma Sotomayor APRN.FUN HOUSE ATTENDANT [address] [facility] [place] [address] [facility] Family [facility] 04/21/24 Mj Glover APRN.FUN HOUSE ATTENDANT [address] [facility] [place] [address] [facility] 04/30/24 Film Developing Machine Operator Relationship Specialty Start Date End Date Kameron Caruso MD [address] [facility] [place] [address] PCP - General Family Medicine 09/21/15 Emma Sotomayor APRN.FUN HOUSE ATTENDANT [address] [facility] [place] [address] Head P[facility] Family [facility] 04/21/24 Mj Glover APRN.FUN HOUSE ATTENDANT [address] [facility] [place] [address] [facility] 04/30/24 Film Developing Machine Operator Relationship Specialty Start Date End Date Kameron Caruso MD [address] [facility] [place] [address] PCP - General Family Medicine 09/21/15 Emma Sotomayor APRN.FUN HOUSE ATTENDANT [address] [place] [address] Head [facility] 04/21/24 Mj Glover APRN.FUN HOUSE ATTENDANT [address] [facility] [place] [address] [facility] 04/30/24 Team Status: Active Member Role Status Dates Dr. Kameron Caruso MD Primary Care Provider Active Team Status: Inactive Member Role Status Dates Dr. Kameron Caruso MD Primary Care Provider Active Start: August 02, 2024 End: August 02, 2024 Dr. Pieter Morgan MD Emergency Provider Active Start: August 02, 2024 End: August 02, 2024 Film Developing Machine Operator Relationship Specialty Start Date End Date Kameron Caruso MD [address] [facility] [place] [address] PCP - General Family Medicine 08/03/24 Film Developing Machine Operator Relationship Specialty Start Date End Date Kameron Caruso MD [address] [facility] [place] [address] PCP - General Family Medicine 09/21/15 Emma Sotomayor APRN.FUN HOUSE ATTENDANT [address] [facility] [place] [address] Head P[facility] Family [facility] 04/21/24 Mj Glover APRN.FUN HOUSE ATTENDANT [address] [facility] [place] [address] Head P[facility] Family [facility] 04/30/24 Team Status: Inactive Member [...] HOURS, First dose (after last modification) on 08/05/24 at 1200, Until Discontinued, HOLD IF: Tube [...] Shanna Catalan RN)0606 (Given - Provider: Shanna Catalan, ZOE)1200 (Canceled Entry - Provider: System Discharge - [...] last modification) on Mon08/10/24 at 0900, Until Discontinued, Hold tube feedings for 1 hour before and 1 hour after medication administration. 0904 (Given - Provider: Shanna Palmer RN) 1001 (Given - Provider: Eneida Cespedes RN) 09 (Given - Provider: Robson Steel RN) Lisinopril (PRINIVIL) tablet 10 mg 10 mg, PEG Tube, DAILY, First dose (after last modification) on Mon08/10/24 at 0900, Until Discontinued 09 (Given - Provider: Shanna Palmer RN) 0849 [...] modification) on Mon08/09/24 at 2100, Until Discontinued 0904 (Given - Provider: Shanna Palmer RN)194 (Given - Provider: Shaila Eng RN) 0849 (Given - Provider: Eneida Cespedes RN)2040 (Given - Provider: Shanna Catalan RN) 0807 (Given - Provider: Robson Steel RN) Polyethylene glycol (MIRALAX) packet 17 g(Linked Group 2) 17 g, PEG Tube, EVERY 12 HOURS, First dose (after last modification) on Mon08/09/24 at 2100, Until Discontinued 904 (Not Given - Provider: Shanna Palmer RN - Reason: Patient with symptoms)1920 (Not Given - Provider: Shaila Eng RN - Reason: Contraindicated - Comment: Pt having frequent loose stools) 0852 (Not Given - Provider: Eneida Cespedes RN [...] Hold if BM in last 2 hours. 09 (Not Given - Provider: Shanna Palmer RN [...] 1,000 mL, Intravenous, ONCE, 1 dose, On Mon08/15/24 at 0700, Fluid Bolus 0643 ($$New Bag$$ - Provider: Shanna Catalan RN)0721 (Rate/Dose Change - Provider: Shanna Catalan RN) Water liquid (free water) 150 mL (CANCELED) 150 mL, PEG Tube, EVERY 4 HOURS, First dose (after last modification) on Mon08/12/24 at 1800, Until Discontinued, For tube patency. 0200 (Given - Provider: Katia Parekh, ZOE)0507 (Given - Provider: Katia Parekh, ZOE)0906 (Given - Provider: Shanna Palmer RN)1351 (Given - Provider: Shanna Palmer RN)1758 (Given - Provider: Shanna Palmer RN)212 (Given - Provider: Shaila Eng RN) 0113 (Given - Provider: Shaila Egn RN)0533 (Given - Provider: Shaila Eng RN) [...] Itching 0359 (Given - Provid er: Shanna Catalan, ZOE) glucose (GLUTOSE) 40 % oral gel 1-2 Tube(Linked Group 1) 1-2 Tube, Oral, ADMINISTER DIRECTED, Starting on 08/03/24 at 1300, Until Diane 4/3/25 at 1259, Blood glucose <80 mg/dL, For [...] Starting on 08/04/24 at 1153, Until Diane 4 at 1259, SBP > [...] Starting on 08/04/24 at 1153, Until Diane 4 at 1259, SBP > [...] is greater than 200mg/dl, then notify house manager. And BLOOD GLUCOSE (POC DEVICE) (CANCELED) Routine, [...] at 1301, Until Specified, Who to Notify: [employer] Employee, For all Blood Glucose LESS THAN 80 mg/dl, notify [employer] Employee after treatment per Hypoglycemia in Non- Adults [...] BE BASED ON THE PRIMARY CLINICAL RECORDS. [employer] provides no warranty or guarantee of the accuracy or completeness of information in this document.
[2024-11-05 08:07] LABS: Absolute Lymphocyte Count 2.91 X10^3/uL (0.83-4.51); Absolute Neutrophil Count 4.6 X10^3/uL (2.0-7.7); Basophil# 0.08 X10^3/uL; Basophil% 0.9 % (0-1); Eosinophil# 0.23 X10^3/uL; Eosinophils% 2.7 % (0-5); Hematocrit 40.7 % (37-47); Hemoglobin 12.9 g/dL (12.0-15.0); Lymphocyte # 2.91 X10^3/ul (0.83-4.51); Lymphocyte % 33.7 % (19-41); Mean Corp Hgb Conc 31.7 g/dL (32-36); Mean Corpuscular Hgb 29.5 pg (27.0-32.0); Mean Corpuscular Volume 92.9 fL (81-99); Mean Platelet Vol. 11.2 fl (6.2-12.0); Monocyte# 0.74 X10^3/uL; Monocyte% 8.6 % (0-10); NRBC Flagged by Analyzer 0 % (0-5); Neutrophil # 4.63 X10^3/uL (2.7-7.7); Neutrophil % 53.6 % (47-70); Platelet Count 318 K/mm3 (150-450); RBC Distribution Width CV 13.9 % (11.6-14.6); RBC Distribution Width SD 47.1 fl (35.1-43.9); Red Blood Count 4.38 M/mm3 (4.2-5.4); White Blood Count 8.6 K/mm3 (4.4-11.0)
[2024-11-05 08:18] LABS: Anion Gap 13 (5-15); BUN 22 mg/dL (4-19); BUN/Creat Ratio 23.3 RATIO (10-20); Calcium,Total 9.5 mg/dL (7.6-11.0); Carbon Dioxide 24.2 mmol/L (21.0-32.0); Chloride 102 mmol/L (98-108); Creatinine, Serum 0.93 mg/dL (0.70-1.20); EST Glomerular Filtration Rate 62 (>60); Glucose 70 mg/dL (70-99); Sodium Level 139 mmol/L (133-145)
== END ==
LOC: OLS.WHLTCC 05:00
PROVIDERS: PCP Family Medicine; Visit Provider Internal Medicine
DX: I10 Essential (primary) hypertension (principal); I69.354 Hemiplegia and hemiparesis following cerebral infarction affecting left non-dominant side; I69.391 Dysphagia following cerebral infarction; E11.9 Type 2 diabetes mellitus without complications
CPT/HCPCS: 36415; 80048; 85025

== ENCOUNTER → 2024-11-12 | Outpatient (REF) | payer MEDICARE, SELFPAY ==
[2024-11-12 11:06] LABS: Anion Gap 12 (5-15); BUN 24 mg/dL (4-19); BUN/Creat Ratio 28.1 RATIO (10-20); Calcium,Total 9.7 mg/dL (7.6-11.0); Carbon Dioxide 25.1 mmol/L (21.0-32.0); Chloride 102 mmol/L (98-108); Glucose 112 mg/dL (70-99); Potassium 3.9 mmol/L (3.3-5.1)
[2024-11-12 11:20] LABS: Hematocrit 40.6 % (37-47); Hemoglobin 13.2 g/dL (12.0-15.0); Immature Granulocytes Count 0.030 X10^3/uL (0.0-0.0); Mean Corp Hgb Conc 32.5 g/dL (32-36); Mean Corpuscular Volume 92.1 fL (81-99); Mean Platelet Vol. 11.7 fl (6.2-12.0); NRBC Flagged by Analyzer 0 % (0-5); Platelet Count 304 K/mm3 (150-450); RBC Distribution Width CV 13.8 % (11.6-14.6); RBC Distribution Width SD 46.7 fl (35.1-43.9); Red Blood Count 4.41 M/mm3 (4.2-5.4); White Blood Count 7.8 K/mm3 (4.4-11.0)
== END ==
LOC: OLS.WHLTCC 05:00
PROVIDERS: PCP Family Medicine; Visit Provider Internal Medicine
DX: E11.9 Type 2 diabetes mellitus without complications (principal); I10 Essential (primary) hypertension; I69.354 Hemiplegia and hemiparesis following cerebral infarction affecting left non-dominant side; I69.391 Dysphagia following cerebral infarction
CPT/HCPCS: 36415; 80048; 85025

== ENCOUNTER → 2024-11-19 04:00 | Outpatient (REF) | payer MEDICARE, SELFPAY ==
[2024-11-19 06:35] LABS: Hematocrit 39.2 % (37-47); Hemoglobin 12.7 g/dL (12.0-15.0); Immature Granulocytes Count 0.030 X10^3/uL (0.0-0.0); Mean Corp Hgb Conc 32.4 g/dL (32-36); Mean Corpuscular Volume 91.4 fL (81-99); Mean Platelet Vol. 11.5 fl (6.2-12.0); NRBC Flagged by Analyzer 0 % (0-5); Platelet Count 300 K/mm3 (150-450); RBC Distribution Width CV 13.9 % (11.6-14.6); RBC Distribution Width SD 46.6 fl (35.1-43.9); Red Blood Count 4.29 M/mm3 (4.2-5.4); White Blood Count 8.9 K/mm3 (4.4-11.0)
[2024-11-19 06:53] LABS: Anion Gap 12 (5-15); BUN 22 mg/dL (4-19); BUN/Creat Ratio 25.0 RATIO (10-20); Calcium,Total 9.6 mg/dL (7.6-11.0); Carbon Dioxide 25.5 mmol/L (21.0-32.0); Chloride 101 mmol/L (98-108); Glucose 136 mg/dL (70-99); Potassium 3.8 mmol/L (3.3-5.1)
== END ==
LOC: OLS.WHLTCC 04:00
PROVIDERS: PCP Family Medicine; Referring Provider Internal Medicine; Visit Provider Internal Medicine
DX: I10 Essential (primary) hypertension (principal); I69.354 Hemiplegia and hemiparesis following cerebral infarction affecting left non-dominant side; I69.391 Dysphagia following cerebral infarction; E11.9 Type 2 diabetes mellitus without complications
CPT/HCPCS: 36415; 80048; 85025

== ENCOUNTER → 2024-11-25 | Outpatient (REF) | payer MEDICARE, SELFPAY | LOC: OLS.WHLTCC 02:00 | PROVIDERS: PCP Family Medicine; Visit Provider Internal Medicine | DX: R19.7 Diarrhea, unspecified (principal) | CPT/HCPCS: 87493 ==

== ENCOUNTER → 2024-11-26 05:20 | Outpatient (REF) | payer MEDICARE, SELFPAY ==
--- OUTSIDE RECORDS SUMMARY | 2024-11-26 06:58 | XMS RPT_ITS | CCD ---
Author Organization [facility] Care Team Providers Care Senior Cost Estimator Name Role Phone KETTY DOWNS Attending Unavailable [...] Kameron Caruso MD Primary Care Provider Светлана CARDIOTHORACIC PHYSIOTHERAPIST.Emma TUCKER Unavailable Saurav CARDIOTHORACIC PHYSIOTHERAPIST.Mj TUCKER Unavailable JUVENTINO ROGERS Attending Unavailable JUVENTINO ROGERS Admitting Unavailable CATA ALFRED Attending Unavailable CATA ALFRED Admitting Unavailable Dr. Kameron Caruso MD Primary Care Provider Dr. Pieter Morgan MD Emergency Provider Kameron Caruso MD Primary Care Provider Светлана CARDIOTHORACIC PHYSIOTHERAPIST.Emma TUCKER Unavailable Unavail able KAMERON CARUSO Referring Unavailable KAMERON CARUSO Primary Care Unavailable KAMERON CARUSO Attending Unavailable KAMERON CARUSO Primary Care Unavailable EMMA SOTOMAYOR Attending Unavailable KAMERON CARUSO Primary Care Unavailable KAMERON CARUSO Primary Care Unavailable ELDERLINDA, KAMERON Beebe Primary Care Unavailable KAMERON CARUSO Referring Unavailable ELDERLINDA, KAMERON Beebe Primary Care Unavailable ELDERLINDA, KAMERON Beebe Attending Unavailable ELDERLINDA, KAMERON Beebe Primary Care Unavailable ELDERLINDA, KAMERON Beebe Referring Unavailable ZULY, KAMERON Beebe Primary Care Unavailable KAMERON CARUSO Attending Unavailable KAMERON CARUSO Primary Care Unavailable ZULY LAWSON, DR MELO Primary Care Physician Cathy LAWSON, Dr. Stapleton Attending Provider Jessenia LAWSON, Safia Attending Provider Unavailjair Caruso MD, Dr. Melo Referring Provider Makayla LAWSON, Dr. Barker Attending Provider [phone] ZULY LAWSON, DR MELO Primary Care Unavailab le SCHEBEULAH PALMER, SILVINO Admitting Unavailable SCHEATZSHITAL PALMER, SILVINO Attending Unavailable BRYON LAWSON, DR REECE Consulting Unavailab shital HUTTON DO, NANDO Consulting Unavailable SUDARSHAN WEATHERS-SLASHER TENDER HELPER, AMI Hwang Consulting Unavailjair GIBSON PhD, MATTHEW Zamudio Consulting Unavailable CHRISTOS VOSS Attending Unavailable CONSULT, GASTROENTEROLOGY Consulting PEITER Wolf Referring Unavailable PREMA RAMOS Admitting Unavailable KAMERON CARUSO Primary Care Unavailable RICHARD MEJIA Referring Unavailable LUCINDA PEACOCK Attending Unavailable LUCINDA PEACOCK Admitting Unavailable Kameron Caruso Primary Care Unavailable Oleghe OLS, Efewongbe Attending Unavailabl e Kameron Caruso Primary Care Unavailable Oleghe OLS, Efewongbe Attending Unavailabl e Kameron Caruso Primary Care Unavailable Oleghe OLS, Efewongbe Attending UnavailPieter Burrell Attending Unavailable Kameron Caruso Primary Care Unavailable Bret Snyder Attending Unavailable Zuly, Kameron Primary Care Unavailable Elderlinda, Kameron Primary Care Unavailable Mj Benavides Attending Unavailable Kameron Caruso Referring Unavailable Olebonie, Efewongbe Attending Unavailable Kameron Caruso Primary Care Unavailable Elderlinda, Kameron Primary Care Unavailable Oleghe OLS, Efewongbe Attending Unavailabl e Oleghe OLS, Efewongbe Referring Unavailabl e Elderbrock, Kameron Primary Care Unavailable Oleghe OLS, Efewongbe Attending Unavailabl e Elderbrock, Kameron Primary Care Unavailable Oleghe OLS, Efewongbe Attending Unavailabl e Elderbrock, Kameron Primary Care Unavailable Oleghe OLS, Efewongbe Attending Unavailabl e Elderbrock, Kameron Primary Care Unavailable Oleghe OLS, Efewongbe Attending Unavailabl e Oleghe OLS, Efewongbe Attending Unavailabl e Elderbrock, Kameron Primary Care Unavailable Elderbrock, Kameron Primary Care Unavailable Oleghe OLS, Efewongbe Attending Unavailabl e Elderbrock, Kameron Primary Care Unavailable Oleghe OLS, Efewongbe Attending Unavailabl e Elderbrock, Kameron Primary Care Unavailable Oleghe OLS, Efewongbe Attending Unavailabl e Elderbrock, Kameron Primary Care Unavailable Oleghe OLS, Efewongbe Attending Unavailabl e Allergies Allergy Classification Reported Allergen(s) Allergy Type Date of Onset Reaction(s) Facility (2 sources) Sulfonamides (Antibiotic) Propensity to adverse reactions to drug 6 Other (See Comments) [place] (2 sources) Other Propensity to adverse reactions 6 Shortness Of Breath [place], [place] (20 sources) Benzocaine; Translations: [BENZOCAINE] Drug Allergy 6 Rash [facility] Work Phone: (20 sources) Cocaine; Translations: [COCAINE] Drug Allergy 9 Inverted T waves [facility] Work Phone: (20 sources) Sulfonamides (Antibiotic); Translations: [SULFA (SULFONAMIDE ANTIBIOTICS)] Propensity to adverse reactions 6 Intolerance [facility] Work Phone: (20 sources) Perfumes; Translations: [PERFUMES] Propensity to adverse reactions 6 Shortness of Breath [facility] Work Phone: (2 sources) Sulfonamides (Antibiotic) Allergy to substance 5 Unknown [facility] (4 sources) perfume; Translations: [perfume] Allergy to substance 5 Shortness of breath [facility] (1 source) Cocaine; Translations: [cocaine nasal] Drug Allergy [facility] (1 source) Codeine; Translations: [codeine] Drug Allergy Pharyngeal swelling (finding) [facility] (1 source) Sulfonamide; Translations: [sulfa drugs] Drug allergy [facility] (1 source) Benzocaine Drug Allergy 5 [facility] (1 source) Cocaine Drug Allergy 5 [facility] (1 source) Sulfonamides (Antibiotic) Drug allergy (disorder) 5 [facility] Medications Current Medications Medication Drug [...] kidney disease, unspecified CKD stage, unspecified whether terminologist insulin use (HCC) , Type 2 diabetes [...] Take 1 tablet by christ once daily atovaquone 250 mg / proguanil [...] kidney disease, unspecified CKD stage, unspecified whether terminologist insulin use (HCC) Take 1 tablet by [...] capsules by m outh once daily sennosides, detention 8.6 mg oral tablet (2 sources) Start: 08-09-2024 End: 08-15-2024 Start: 08-04-2024 End: 08-09-2024 triamcinolone acetonide 0.50543 mg/mg topical ointment (3 sources) Corticosteroid Start: [...] glucose is greater than 200mg/dl, then notify malt house kiln operator. [Order 2 End] [Order 3 Start] Name: [...] 50% needed, contact pharmacy or obtain from [facility] cart ++ [Order 5 End] [Order 6 [...] at 1301, Until Specified, Who to Notify: Electrical Cad Technician, For all Blood Glucose LESS THAN 80 mg/dl, notify Electrical Cad Technician after treatment per Hypoglycemia in Non- Adults [...] Documented Da te Episodic/Chronic Acute cerebrovascular disease (13 sources) Ischemic stroke; Translations: [Cerebral infarction due [...] Coronary arteriosclerosis; Translations: [Atherosclerotic heart disease of [place] coronary artery without angina pectoris] Onset: 5 07-03-2024 Chronic Diabetes mellitus with complications (20 sources) Type 2 diabetes mellitus; Translations: [Type 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] Onset: 4 Resolved: 1 11-03-2020 Chronic Diabetes mellitus without complication (18 sources) Diabetes mellitus; Translations: [Type 2 diabetes [...] immunization] Episodic Late effects of cerebrovascular disease (6 sources) 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 [...] Osteoarthritis; Translations: [Unspecified osteoarthritis, unspecified site] Onset: Chronic Other aftercare (2 sources) 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; Translations: [termite technician (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) use of anticoagulants] 08-02-2024 Episodic Other aftercare (1 source) [facility] (current) use of aspirin; Translations: [[facility] (current) use of aspirin] Onset: Episodic Other aftercare (1 source) [facility] (current) use of anticoagulants; Translations: [[facility] (current) use of anticoagulants] Onset: Episodic Other aftercare (1 source) termite technician (current) use of oral hypoglycemic drugs; Translations: [[facility] (current) use of oral hypoglycemic drugs] Onset: [...] [Psoriasis, unspecified] Onset: 4 11-26-2013 Chronic Other nervous system disorders (1 source) Slurred speech; Translations: [Slurred speech] Onset: Episodic Other nervous system disorders (1 source) Unspecified abnormalities of gait and mobility; Translations: [Unspecified abnormalities of gait and mobility] Onset: Episodic Other nervous system disorders (1 source) Other symptoms and signs involving cognitive functions and awareness; Translations: [Other symptoms and signs involving cognitive functions and awareness] Onset: Episodic Other skin disorders (1 source) Eruption; Translations: [Rash and other nonspecific skin eruption] 10-10-2023 Episodic Other skin disorders (1 source) Xerosis cutis; Translations: [Xerosis cutis] Onset: Episodic Other upper respiratory infections (2 sources) [...] diffuse goiter] Onset: 7 07-08-2005 Chronic Unclassified (1 source) Need for malaria prophylaxis; Translations: [Need for malaria prophylaxis] Onset: Unclassified (1 source) Cough, unspecified; Translations: [Cough, unspecified] Onset: Unclassified (2 sources) CVA Onset: Urinary tract infections (1 source) Urinary tract infection, site not specified; Translations: [Urinary tract infection, site not specified] Onset: Episodic Past or Other Problems Problem Classification Problem Date Documented Da te Episodic/Chronic Other injuries and conditions due to external causes (1 source) Unspecified injury of head, initial encounter; Translations: [Unspecified injury of head, initial encounter] Onset: 08-09-2024 Episodic Other non-traumatic joint disorders (20 sources) Pain [...] 12 [place] [facility] [place]24 12 [place] [address] 12 Lead EKG performed [place] [facility] 10/02/24 0921 MR#: [id number] Acct: [id number] Name: LINDSAY ACUNA Rep #: [id number] : 1945 78 From: Mj Benavides MD Attending Dr: Dr. Mj Benavides MD Status: DEP A MB Ordering Dr: Mj Benavides MD Date: 10/02/24 [place] [facility] [place]: F C [place] [facility] [facility] ECG Report Interpretation ---Atrial fibrillation -irregular conduction -Old anterior infarct. ABNORMAL Electronically signed on 10/02/2024 at 16:06 by Mj Benavides [employer] Version [id number] 10/02/24 1608 Date Mj Benavides MD CC: Dr. Kameron Caruso MD Date Dictated: 10/02/24920 Date Transcribed: 10/02/24920 Washcoat Wiper: CO Signed Normal [facility] Cardiology Visit Reporton Cardiology Visit Report [facility] [address] [place] [address] OFFICE VISIT Date of Service: 10/02/24 MR#: [id number] Acct: [id number] Name: LINDSAY ACUNA Rep #: [id number] : 1945 Provider: Dr. Mj Benavides MD Age/Sex: 78/F [place] [facility] Status: Signed HPI HPI History of [...] now she is currently domiciled in a prison. Her previous echocardiogram which was performed in [...] d/t W/C bound Intake Visit Reasons: AFIB (Zuly) Furniture Fabricator Required: No Accompanied by: Significant Other Is [...] you fallen in the past year?: Yes [facility] Medical History Acute ischemic right MCA stroke [...] normal, nasal (more content not included)... Normal [facility] Absolute lymphocyte countOrd ered By: Safia Ruelas on 10-01-2024 Lymphocytes Auto (Unsp spec) [#/Vol] 2.45 10*3/uL 0.83-4.51 [facility] Absolute neutrophil countOrd ered By: Safia Ruelas on 10-01-2024 Neutrophils (Bld) [#/Vol] 6.5 10*3/uL 2.0-7.7 [facility] Anion gap in Serum or Plasma Ordered By: Safia Ruelas on 10-01-2024 Anion gap [Moles/Vol] 12 mmol/L - [facility] Automated lymphocyte count a s percentage of total leukocytesOrdered By: Safia Ruelas on 10-01-2024 Lymphocytes/100 WBC Auto (Unsp spec) 23.1 % - [facility] BUN/creatinine ratioOrdered By: Safia Ruelas on 10-01-2024 Urea nitrogen/Creatinine [Mass ratio] 24.9 mg/mg High - [facility] Basophil percentageOrdered B y: Safia Ruelas on 10-01-2024 Basophils/100 WBC (Bld) 0.5 % 0-1 [facility] Carbon dioxide, total [Moles /volume] in Central venous bloodOrdered By: Safia Ruelas on 10-01-2024 CO2 [Moles/Vol] 24.4 mmol/L 21.0-32.0 [facility] Chloride assayOrdered By: Balbir Ruelas on 10-01-2024 Chloride [Moles/Vol] 99 mmol/L 98-108 [facility] Eosinophil percentageOrdered By: Safia Ruelas on 10-01-2024 Eosinophils/100 WBC (Bld) 2.0 % 0-5 [facility] Erythrocyte distribution wid th ratioOrdered By: Safia Ruelas on 10-01-2024 Erythrocyte distribution width (RBC) [Ratio] 13.5 % 11.6-14.6 [facility] Erythrocyte distribution wid th standard deviationOrdered By: Safia Ruelas on 10-01-2024 Erythrocyte distribution width (RBC) [Ratio] 46.2 fl High 35.1-43.9 [facility] Glomerular filtration rate ( GFR) estimation/1.73 sq m using serum, plasma, or whole bOrdered By: Safia Ruelas on 10-01-2024 GFR/1.73 sq M.predicted among non-blacks MDRD (S/P/Bld) [Vol rate/Area] 63 mL/min/{1.73_m2} >60 [facility] Comment on above: mL/min/1.73m2 CKD-EP I Creatinine Equation (2020) Hematocrit Auto (Bld) [Volum e fraction]Ordered By: Safia Ruelas on 10-01-2024 Hematocrit (Bld) [Volume fraction] 38.7 % 37-47 [facility] Hemoglobin measurementOrdere d By: Safia Ruelas on 10-01-2024 Hemoglobin (Bld) [Mass/Vol] 12.5 g/dL 12.0-15.0 [facility] Immature granulocytes/100 WB C Auto (Bld)Ordered By: Safia Ruelas on 10-01-2024 Immature granulocytes/100 WBC (Bld) 0.800 % 0.0-0.9 [facility] Comment on above: IG% - Immature Granu locytes (promyelocytes, myelocytes and metamyelocytes) > 1% indicates that a LEFT SHIFT is Present. MCV (mean corpuscular volume ) determinationOrdered By: Safia Ruelas on 10-01-2024 MCV (RBC) [Entitic vol] 93.3 fL 81-99 [facility] Mean corpuscular hemoglobin (MCH) determinationOrdered By: Safia Ruelas on 10-01-2024 MCH (RBC) [Entitic mass] 30.1 pg 27.0-32.0 [facility] Mean corpuscular hemoglobin concentration (MCHC) determinationOrdered By: Safia Ruelas on 10-01-2024 MCHC (RBC) [Mass/Vol] 32.3 g/dL 32-36 [facility] Mean platelet volume determi nationOrdered By: Safia Ruelas on 10-01-2024 Platelet mean volume (Bld) [Entitic vol] 11.7 fL 6.2-12.0 [facility] Monocyte percentageOrdered B y: Safia Ruelas on 10-01-2024 Monocytes/100 WBC (Bld) 12.7 % High 0-10 [facility] Neutrophil percentageOrdered By: Safia Ruelas on 10-01-2024 Neutrophils/100 WBC (Bld) 60.9 % 47-70 [facility] Nucleated red blood cell per centageOrdered By: Safia Ruelas on 10-01-2024 Nucleated RBC/100 WBC (Bld) [Ratio] 0 % 0-5 [facility] Platelet countOrdered By: Balbir Ruelas on 10-01-2024 Platelets (Bld) [#/Vol] 371 10*3/uL 150-450 [facility] Potassium measurement (mass/ volume)Ordered By: Safia Ruelas on 10-01-2024 Potassium (Unsp spec) [Mass/Vol] 4.2 mmol/L 3.3-5.1 [facility] RBC Auto (Bld) [#/Vol]Ordere d By: Safia Ruelas on 10-01-2024 RBC (Bld) [#/Vol] 4.15 10*6/uL Low 4.2-5.4 [facility] Serum creatinine measurement (mass/volume)Ordered By: Safia Ruelas on 10-01-2024 Creatinine [Mass/Vol] 0.93 mg/dL 0.70-1.20 [facility] Serum glucose measurement (m ass/volume)Ordered By: Safia Ruelas on 10-01-2024 Glucose [Mass/Vol] 93 mg/dL 70-99 [facility] Serum or plasma calcium dayna urement (mass/volume)Ordered By: Safia Ruelas on 10-01-2024 Calcium [Mass/Vol] 9.5 mg/dL 7.6-11.0 [facility] Serum or plasma urea nitroge n measurement (mass/volume)Ordered By: Safia Ruelas on 10-01-2024 Urea nitrogen [Mass/Vol] 23 mg/dL High 4-19 [facility] Sodium levelOrdered By: Leonides josé antonio Jessenia on 10-01-2024 Sodium [Moles/Vol] 135 mmol/L 133-145 [facility] White blood cell (WBC) count Ordered By: Safia Ruelas on 10-01-2024 WBC (Bld) [#/Vol] 10.6 10*3/uL 4.4-11.0 [facility] Clostridium difficile detect ion by polymerase chain reactionOrdered By: Safia Ruelas on 09-29-2024 C. difficile DNA CHUCKY+probe Ql (Unsp spec) [facility] Absolute lymphocyte countOrd ered By: Safia Ruelas on 09-24-2024 Lymphocytes Auto (Unsp spec) [#/Vol] 2.72 10*3/uL 0.83-4.51 [facility] Absolute neutrophil countOrd ered By: Safia Ruelas on 09-24-2024 Neutrophils (Bld) [#/Vol] 6.3 10*3/uL 2.0-7.7 [facility] Anion gap in Serum or Plasma Ordered By: Safia Ruelas on 09-24-2024 Anion gap [Moles/Vol] 12 mmol/L 5-15 [facility] Automated lymphocyte count a s percentage of total leukocytesOrdered By: Safia Ruelas on 09-24-2024 Lymphocytes/100 WBC Auto (Unsp spec) 26.3 % 19-41 [facility] BUN/creatinine ratioOrdered By: Safia Ruelas on 09-24-2024 Urea nitrogen/Creatinine [Mass ratio] 36.4 mg/mg High 10-20 [facility] Basophil percentageOrdered B y: Safia Ruelas on 09-24-2024 Basophils/100 WBC (Bld) 0.7 % 0-1 [facility] Carbon dioxide, total [Moles /volume] in Central venous bloodOrdered By: Safia Ruelas on 09-24-2024 CO2 [Moles/Vol] 24.1 mmol/L 21.0-32.0 [facility] Chloride assayOrdered By: Balbir Ruelas on 09-24-2024 Chloride [Moles/Vol] 100 mmol/L 98-108 [facility] Eosinophil percentageOrdered By: Safia Ruelas on 09-24-2024 Eosinophils/100 WBC (Bld) 2.7 % 0-5 [facility] Erythrocyte distribution wid th ratioOrdered By: Safia Ruelas on 09-24-2024 Erythrocyte distribution width (RBC) [Ratio] 13.6 % 11.6-14.6 [facility] Erythrocyte distribution wid th standard deviationOrdered By: Safia Ruelas on 09-24-2024 Erythrocyte distribution width (RBC) [Ratio] 47.1 fl High 35.1-43.9 [facility] Glomerular filtration rate ( GFR) estimation/1.73 sq m using serum, plasma, or whole bOrdered By: Safia Ruelas on 09-24-2024 GFR/1.73 sq M.predicted among non-blacks MDRD (S/P/Bld) [Vol rate/Area] 62 mL/min/{1.73_m2} >60 [facility] Comment on above: mL/min/1.73m2 CKD-EP I Creatinine Equation (2020) Hematocrit Auto (Bld) [Volum e fraction]Ordered By: Safia Ruelas on 09-24-2024 Hematocrit (Bld) [Volume fraction] 41.2 % 37-47 [facility] Hemoglobin measurementOrdere d By: Safia Ruelas on 09-24-2024 Hemoglobin (Bld) [Mass/Vol] 13.0 g/dL 12.0-15.0 [facility] Immature granulocytes/100 WB C Auto (Bld)Ordered By: Safia Ruelas on 09-24-2024 Immature granulocytes/100 WBC (Bld) 1.000 % High 0.0-0.9 [facility] Comment on above: IG% - Immature Granu locytes (promyelocytes, myelocytes and metamyelocytes) > 1% indicates that a LEFT SHIFT is Present. MCV (mean corpuscular volume ) determinationOrdered By: Safia Ruelas on 09-24-2024 MCV (RBC) [Entitic vol] 94.3 fL 81-99 [facility] Mean corpuscular hemoglobin (MCH) determinationOrdered By: Safia Ruelas on 09-24-2024 MCH (RBC) [Entitic mass] 29.7 pg 27.0-32.0 [facility] Mean corpuscular hemoglobin concentration (MCHC) determinationOrdered By: Safia Ruelas on 09-24-2024 MCHC (RBC) [Mass/Vol] 31.6 g/dL Low 32-36 [facility] Mean platelet volume determi nationOrdered By: Safia Ruelas on 09-24-2024 Platelet mean volume (Bld) [Entitic vol] 11.3 fL 6.2-12.0 [facility] Monocyte percentageOrdered B y: Safia Ruelas on 09-24-2024 Monocytes/100 WBC (Bld) 8.9 % 0-10 [facility] Neutrophil percentageOrdered By: Safia Ruelas on 09-24-2024 Neutrophils/100 WBC (Bld) 60.4 % 47-70 [facility] Nucleated red blood cell per centageOrdered By: Safia Ruelas on 09-24-2024 Nucleated RBC/100 WBC (Bld) [Ratio] 0 % 0-5 [facility] Platelet countOrdered By: Balbir Griderghmelanie on 09-24-2024 Platelets (Bld) [#/Vol] 441 10*3/uL 150-450 [facility] Potassium measurement (mass/ volume)Ordered By: Safia Ruelas on 09-24-2024 Potassium (Unsp spec) [Mass/Vol] 4.3 mmol/L 3.3-5.1 [facility] RBC Auto (Bld) [#/Vol]Ordere d By: Safia Ruelas on 09-24-2024 RBC (Bld) [#/Vol] 4.37 10*6/uL 4.2-5.4 [facility] Serum creatinine measurement (mass/volume)Ordered By: Safia Cheoquyen on 09-24-2024 Creatinine [Mass/Vol] 0.93 mg/dL 0.70-1.20 [facility] Serum glucose measurement (m ass/volume)Ordered By: Safia Cheoquyen on 09-24-2024 Glucose [Mass/Vol] 48 mg/dL Low 70-99 [facility] Serum or plasma calcium dayna urement (mass/volume)Ordered By: Safia Ruelas on 09-24-2024 Calcium [Mass/Vol] 9.5 mg/dL 7.6-11.0 [facility] Serum or plasma urea nitroge n measurement (mass/volume)Ordered By: Safia Cheoquyen on 09-24-2024 Urea nitrogen [Mass/Vol] 34 mg/dL High 4-19 [facility] Sodium levelOrdered By: Leonides chou Cheobonimelanie on 09-24-2024 Sodium [Moles/Vol] 136 mmol/L 133-145 [facility] White blood cell (WBC) count Ordered By: Sfaia Cheoquyen on 09-24-2024 WBC (Bld) [#/Vol] 10.4 10*3/uL 4.4-11.0 [facility] Absolute lymphocyte countOrd ered By: Safia Cheobonimelanie on 09-17-2024 Lymphocytes Auto (Unsp spec) [#/Vol] 2.52 10*3/uL 0.83-4.51 [facility] Absolute neutrophil countOrd ered By: Safia Ruelas on 09-17-2024 Neutrophils (Bld) [#/Vol] 5.8 10*3/uL 2.0-7.7 [facility] Anion gap in Serum or Plasma Ordered By: Safia Ruelas on 09-17-2024 Anion gap [Moles/Vol] 12 mmol/L 5-15 [facility] Automated lymphocyte count a s percentage of total leukocytesOrdered By: Safia Ruelas on 09-17-2024 Lymphocytes/100 WBC Auto (Unsp spec) 26.3 % 19-41 [facility] BUN/creatinine ratioOrdered By: jean marieniagara universityskye Ruelas on 09-17-2024 Urea nitrogen/Creatinine [Mass ratio] 45.9 mg/mg High 10-20 [facility] Basophil percentageOrdered B y: Safia Ruelas on 09-17-2024 Basophils/100 WBC (Bld) 0.6 % 0-1 [facility] Calculated very low density lipoprotein (VLDL) cholesterol measurementOrdered By: sherry Ruelas on 09-17-2024 Calculated very low density lipoprotein (VLDL) cholesterol measurement 22 mg/dL 5-40 [facility] Carbon dioxide, total [Moles /volume] in Central venous bloodOrdered By: Safia Ruelas on 09-17-2024 CO2 [Moles/Vol] 24.5 mmol/L 21.0-32.0 [facility] Chloride assayOrdered By: Balbir Ruelas on 09-17-2024 Chloride [Moles/Vol] 98 mmol/L 98-108 [facility] Eosinophil percentageOrdered By: Safia Ruelas on 09-17-2024 Eosinophils/100 WBC (Bld) 3.2 % 0-5 [facility] Erythrocyte distribution wid th ratioOrdered By: Safia Ruelas on 09-17-2024 Erythrocyte distribution width (RBC) [Ratio] 13.4 % 11.6-14.6 [facility] Erythrocyte distribution wid th standard deviationOrdered By: Safia Ruelas on 09-17-2024 Erythrocyte distribution width (RBC) [Ratio] 45.4 fl High 35.1-43.9 [facility] Glomerular filtration rate ( GFR) estimation/1.73 sq m using serum, plasma, or whole bOrdered By: Safia Ruelas on 09-17-2024 GFR/1.73 sq M.predicted among non-blacks MDRD (S/P/Bld) [Vol rate/Area] 69 mL/min/{1.73_m2} >60 [facility] Comment on above: mL/min/1.73m2 CKD-EP I Creatinine Equation (2020) Hematocrit Auto (Bld) [Volum e fraction]Ordered By: Safia Ruelas on 09-17-2024 Hematocrit (Bld) [Volume fraction] 38.8 % 37-47 [facility] Hemoglobin measurementOrdere d By: Safia Ruelas on 09-17-2024 Hemoglobin (Bld) [Mass/Vol] 12.6 g/dL 12.0-15.0 [facility] Immature granulocytes/100 WB C Auto (Bld)Ordered By: Safia Ruelas on 09-17-2024 Immature granulocytes/100 WBC (Bld) 0.700 % 0.0-0.9 [facility] Comment on above: IG% - Immature Granu locytes (promyelocytes, myelocytes and metamyelocytes) > 1% indicates that a LEFT SHIFT is Present. LDL calc ser/plasOrdered By: Safia Ruelas on 09-17-2024 Cholesterol in LDL [Mass/Vol] 120 mg/dL [facility] Comment on above: Ubiespsadv=963-788 m g/dL & Higher Dims=586 mg/dL or greater MCV (mean corpuscular volume ) determinationOrdered By: Safia Ruelas on 09-17-2024 MCV (RBC) [Entitic vol] 91.7 fL 81-99 [facility] Mean corpuscular hemoglobin (MCH) determinationOrdered By: Safia Ruelas on 09-17-2024 MCH (RBC) [Entitic mass] 29.8 pg 27.0-32.0 [facility] Mean corpuscular hemoglobin concentration (MCHC) determinationOrdered By: Safia Ruelas on 09-17-2024 MCHC (RBC) [Mass/Vol] 32.5 g/dL 32-36 [facility] Mean platelet volume determi nationOrdered By: Safia Ruelas on 09-17-2024 Platelet mean volume (Bld) [Entitic vol] 11.4 fL 6.2-12.0 [facility] Monocyte percentageOrdered B y: Safia Ruelas on 09-17-2024 Monocytes/100 WBC (Bld) 8.5 % 0-10 [facility] Neutrophil percentageOrdered By: Safia Ruelas on 09-17-2024 Neutrophils/100 WBC (Bld) 60.7 % 47-70 [facility] Nucleated red blood cell per centageOrdered By: Safia Ruelas on 09-17-2024 Nucleated RBC/100 WBC (Bld) [Ratio] 0 % 0-5 [facility] Platelet countOrdered By: Balbir Ruelas on 09-17-2024 Platelets (Bld) [#/Vol] 311 10*3/uL 150-450 [facility] Potassium measurement (mass/ volume)Ordered By: Safia Ruelas on 09-17-2024 Potassium (Unsp spec) [Mass/Vol] 4.1 mmol/L 3.3-5.1 [facility] RBC Auto (Bld) [#/Vol]Ordere d By: Safia Ruelas on 09-17-2024 RBC (Bld) [#/Vol] 4.23 10*6/uL 4.2-5.4 [facility] Screening total cholesterol/ high density lipoprotein (HDL) cholesterol ratioOrdered By: Safia Ruelas on 09-17-2024 Cholesterol.total/Alta sterol in HDL [Mass ratio] 5.38 {ratio} [facility] Serum creatinine measurement (mass/volume)Ordered By: Safia Ruelas on 09-17-2024 Creatinine [Mass/Vol] 0.86 mg/dL 0.70-1.20 [facility] Serum glucose measurement (m ass/volume)Ordered By: Safia Ruelas on 09-17-2024 Glucose [Mass/Vol] 216 mg/dL High 70-99 [facility] Serum or plasma calcium dayna urement (mass/volume)Ordered By: Safia Ruelas on 09-17-2024 Calcium [Mass/Vol] 9.4 mg/dL 7.6-11.0 [facility] Serum or plasma cholesterol in HDL measurement (mass/volume)Ordered By: Safia Reulas on 09-17-2024 Cholesterol in HDL [Mass/Vol] 33 mg/dL Low >40 [facility] Comment on above: National Cholesterol Education Program (NCEP) guidelines:<40 mg/dL: Low HDL-cholesterol (major risk factor for CHD)>= 60 mg/dL: High HDL-cholesterol (negative risk factor for CHD)HDL-cholesterol is affected by a number of factors, e.g. smoking, exercise, hormones, sex and age. Serum or plasma cholesterol measurement (mass/volume)Ordered By: Safia Ruelas on 09-17-2024 Cholesterol [Mass/Vol] 175 mg/dL <201 [facility] Comment on above: Cholesterol level, D esirable <200 mg/dLBorderline high cholesterol 200-239 mg/dLHigh cholesterol >=240 mg/dLRecommendations of the NCEP Adult Treatment Panel for the following risk-cutoff thresholds for the [place] population. Serum or plasma urea nitroge n measurement (mass/volume)Ordered By: Safia Ruelas on 09-17-2024 Urea nitrogen [Mass/Vol] 39 mg/dL High 4-19 [facility] Sodium levelOrdered By: Leonides Ruelas on 09-17-2024 Sodium [Moles/Vol] 134 mmol/L 133-145 [facility] TSH DL <= 0.005 mIU/L QnOrde red By: Safia Ruelas on 09-17-2024 TSH Qn 3.500 uIU/mL 0.300-4.200 [facility] Triglycerides measurementOrd ered By: Safia Ruelas on 09-17-2024 Triglyceride [Mass/Vol] 111 mg/dL <199 [facility] Comment on above: The drugs N-Acetylcy steine and Metamizole may falsely depress this assay. Normal range: <150 mg/dLBorderline High: 150-199 mg/dLHigh: 200-499 mg/dLVery High: >500 mg/dL White blood cell (WBC) count Ordered By: Safia Westonmelanie on 09-17-2024 WBC (Bld) [#/Vol] 9.6 10*3/uL 4.4-11.0 [facility] Absolute lymphocyte countOrd ered By: Safia Ruelas on 09-10-2024 Lymphocytes Auto (Unsp spec) [#/Vol] 2.11 10*3/uL 0.83-4.51 [facility] Absolute neutrophil countOrd ered By: Safia Ruelas on 09-10-2024 Neutrophils (Bld) [#/Vol] 8.1 10*3/uL High 2.0-7.7 [facility] Anion gap in Serum or Plasma Ordered By: Safia Westonmelanie on 09-10-2024 Anion gap [Moles/Vol] 13 mmol/L 5-15 [facility] Automated lymphocyte count a s percentage of total leukocytesOrdered By: Leonidesjosé antonio Cheobonimelanie on 09-10-2024 Lymphocytes/100 WBC Auto (Unsp spec) 17.9 % Low 19-41 [facility] BUN/creatinine ratioOrdered By: Safia Ruelas on 09-10-2024 Urea nitrogen/Creatinine [Mass ratio] 29.1 mg/mg High 10-20 [facility] Basophil percentageOrdered B y: Safia Ruelas on 09-10-2024 Basophils/100 WBC (Bld) 0.3 % 0-1 [facility] Bilirubin, totalOrdered By: Safia Westonmelanie on 09-10-2024 Bilirubin [Mass/Vol] 0.55 mg/dL 0.00-1.30 [facility] Carbon dioxide, total [Moles /volume] in Central venous bloodOrdered By: Safia Westonmelanie on 09-10-2024 CO2 [Moles/Vol] 23.6 mmol/L 21.0-32.0 [facility] Chloride assayOrdered By: Balbir sherry Cheobonimelanie on 09-10-2024 Chloride [Moles/Vol] 97 mmol/L Low 98-108 [facility] Eosinophil percentageOrdered By: Safia Westonmelanie on 09-10-2024 Eosinophils/100 WBC (Bld) 0.5 % 0-5 [facility] Erythrocyte distribution wid th ratioOrdered By: Safia Ruelas on 09-10-2024 Erythrocyte distribution width (RBC) [Ratio] 13.4 % 11.6-14.6 [facility] Erythrocyte distribution wid th standard deviationOrdered By: Safia Ruelas on 09-10-2024 Erythrocyte distribution width (RBC) [Ratio] 45.2 fl High 35.1-43.9 [facility] Glomerular filtration rate ( GFR) estimation/1.73 sq m using serum, plasma, or whole bOrdered By: jean marieniagara universityskye Ruelas on 09-10-2024 GFR/1.73 sq M.predicted among non-blacks MDRD (S/P/Bld) [Vol rate/Area] 59 mL/min/{1.73_m2} Low >60 [facility] Comment on above: mL/min/1.73m2 CKD-EP I Creatinine Equation (2020) Hematocrit Auto (Bld) [Volum e fraction]Ordered By: Safia Ruelas on 09-10-2024 Hematocrit (Bld) [Volume fraction] 41.8 % 37-47 [facility] Hemoglobin measurementOrdere d By: Safia Ruelas on 09-10-2024 Hemoglobin (Bld) [Mass/Vol] 13.4 g/dL 12.0-15.0 [facility] Immature granulocytes/100 WB C Auto (Bld)Ordered By: Safia Ruelas 09-10-2024 Immature granulocytes/100 WBC (Bld) 0.800 % 0.0-0.9 [facility] Comment on above: IG% - Immature Granu locytes (promyelocytes, myelocytes and metamyelocytes) > 1% indicates that a LEFT SHIFT is Present. Laboratory - Chemistry and C hemistry - challengeOrdered By: Safia Ruelas on 09-10-2024 AST [Catalytic activity/Vol] 21 U/L <32 [facility] MCV (mean corpuscular volume ) determinationOrdered By: Safia Ruelas on 09-10-2024 MCV (RBC) [Entitic vol] 92.5 fL 81-99 [facility] Mean corpuscular hemoglobin (MCH) determinationOrdered By: Safia Ruelas on 09-10-2024 MCH (RBC) [Entitic mass] 29.6 pg 27.0-32.0 [facility] Mean corpuscular hemoglobin concentration (MCHC) determinationOrdered By: Safia Ruelas on 09-10-2024 MCHC (RBC) [Mass/Vol] 32.1 g/dL 32-36 [facility] Mean platelet volume determi nationOrdered By: Safia Ruelas on 09-10-2024 Platelet mean volume (Bld) [Entitic vol] 12.6 fL High 6.2-12.0 [facility] Monocyte percentageOrdered B y: Safia Ruelas on 09-10-2024 Monocytes/100 WBC (Bld) 12.3 % High 0-10 [facility] Neutrophil percentageOrdered By: Safia Ruelas on 09-10-2024 Neutrophils/100 WBC (Bld) 68.2 % 47-70 [facility] Nucleated red blood cell per centageOrdered By: Saifa Ruelas on 09-10-2024 Nucleated RBC/100 WBC (Bld) [Ratio] 0 % 0-5 [facility] Platelet countOrdered By: Balbir Ruelas on 09-10-2024 Platelets (Bld) [#/Vol] 190 10*3/uL 150-450 [facility] Potassium measurement (mass/ volume)Ordered By: Safia Ruelas on 09-10-2024 Potassium (Unsp spec) [Mass/Vol] 4.3 mmol/L 3.3-5.1 [facility] RBC Auto (Bld) [#/Vol]Ordere d By: Safia Ruelas on 09-10-2024 RBC (Bld) [#/Vol] 4.52 10*6/uL 4.2-5.4 [facility] Serum creatinine measurement (mass/volume)Ordered By: Safia Ruelas on 09-10-2024 Creatinine [Mass/Vol] 0.98 mg/dL 0.70-1.20 [facility] Serum globulin measurementOr dered By: Safia Ruelas on 09-10-2024 Globulin (S) [Mass/Vol] 3.3 g/dL 2.2-4.[address] [facility] Serum glucose measurement (m ass/volume)Ordered By: Safia Ruelas on 09-10-2024 Glucose [Mass/Vol] 181 mg/dL High 70-99 [facility] Serum or plasma alanine raymundo otransferase (ALT) measurementOrdered By: Safia Ruelas on 09-10-2024 ALT [Catalytic activity/Vol] 26 U/L <35 [facility] Serum or plasma albumin dayna urement (mass/volume)Ordered By: Safia Ruelas 09-10-2024 Albumin [Mass/Vol] 3.4 g/dL 3.4-4.8 [facility] Serum or plasma albumin/glob ulin mass ratioOrdered By: Safia Ruelas 09-10-2024 Albumin/Globulin [Mass ratio] 1.0 {ratio} 0.9-2.4 [facility] Serum or plasma alkaline hannah sphatase measurementOrdered By: Safia Ruelas 09-10-2024 ALP [Catalytic activity/Vol] 114 U/L High 35-104 [facility] Serum or plasma calcium dayna urement (mass/volume)Ordered By: Safia Ruelas 09-10-2024 Calcium [Mass/Vol] 9.3 mg/dL 7.6-11.0 [facility] Serum or plasma urea nitroge n measurement (mass/volume)Ordered By: Safia Ruelas 09-10-2024 Urea nitrogen [Mass/Vol] 29 mg/dL High 4-19 [facility] Sodium levelOrdered By: Leonides jiméneztadmelanie Ruelas on 09-10-2024 Sodium [Moles/Vol] 133 mmol/L 133-145 [facility] Total proteinOrdered By: Augusto Ruelas on 09-10-2024 Protein [Mass/Vol] 6.7 g/dL 5.9-8.4 [facility] White blood cell (WBC) count Ordered By: Safia Ruelas 09-10-2024 WBC (Bld) [#/Vol] 11.8 10*3/uL High 4.4-11.0 [facility] LABORATORYOrdered By: Abiagil Smith on 09-09-2024 Glucose [Mass/Vol] 212 mg/dL High 82 - 115 mg/dL [employer] Work Phone: Glucose [Mass/Vol] 226 mg/dL High 82 - 115 mg/dL [employer] Work Phone: LABORATORYOrdered By: Zoila Zarco on 09-08-2024 Glucose [Mass/Vol] 149 mg/dL High 82 - 115 mg/dL [employer] Work Phone: LABORATORYOrdered By: Rob Palmer on 09-08-2024 Blood Glucose Testing Reason Routine (09/08/24 6:16 PM) [employer] Work Phone: Blood Glucose Testing Reason Routine (09/08/24 11:58 AM) [employer] Work Phone: LABORATORYOrdered By: Rob Palmer on 09-07-2024 Blood Glucose Testing Reason Routine (09/07/24 4:46 PM) [employer] Work Phone: .Auto Diffon 09-03-2024 Basophil, Absolute 0.1 10 3/mcL Normal 0.0-0.3 [facility] Comment on above: Performed By: #### A DIFF, CBC, ANEU, GFR, BMP #### [address] [address] Basophils/100 WBC (Bld) 1.0 % Normal 0.0-2.5 [facility] Comment on above: Performed By: #### A DIFF, CBC, ANEU, GFR, BMP #### [address] [address] Eosinophil, Absolute 0.2 10 3/mcL Normal 0.0-0.7 [facility] Comment on above: Performed By: #### A DIFF, CBC, ANEU, GFR, BMP #### [address] [address] Eosinophils/100 WBC (Bld) 3.2 % Normal 0.0-6.0 [facility] Comment on above: Performed By: #### A DIFF, CBC, ANEU, GFR, BMP #### [address] [address] Lymphocyte, Absolute 2.0 10 3/mcL Normal 0.9-4.3 [facility] Comment on above: Performed By: #### A DIFF, CBC, ANEU, GFR, BMP #### [address] [address] Lymphocytes/100 WBC (Bld) 26.6 % Normal 20.0-40.0 [facility] Comment on above: Performed By: #### A DIFF, CBC, ANEU, GFR, BMP #### [address] [address] Monocyte, Absolute 0.7 10 3/mcL Normal 0.1-1.4 [facility] Comment on above: Performed By: #### A DIFF, CBC, ANEU, GFR, BMP #### [address] [address] Monocytes/100 WBC (Bld) 9.7 % Normal 2.0-13.0 [facility] Comment on above: Performed By: #### A DIFF, CBC, ANEU, GFR, BMP #### [address] [address] Neutrophils/100 WBC (Bld) 59.5 % Normal 50.0-75.0 [facility] Comment on above: Performed By: #### A DIFF, CBC, ANEU, GFR, BMP #### [address] [address] .GFRon 09-03-2024 Estimated Glomerular Filtration Rate 57 ml/min/1.73sqm Normal [facility] Comment on above: Result Comment: Stages [...] A DIFF, CBC, ANEU, GFR, BMP #### [place] [address] .NEUABSon 09-03-2024 Neutrophil, Absolute 4.5 10 3/mcL Normal 2.3-8.1 [facility] Comment on above: Performed By: #### A DIFF, CBC, ANEU, GFR, BMP #### [place] [address] B12on 09-03-2024 Cobalamin (Vitamin B12) [Mass/Vol] 834 pg/mL Normal 211-911 [facility] Comment on above: Performed By: #### A DIFF, CBC, ANEU, GFR, BMP #### [place] [address] CBCon 09-03-2024 Erythrocyte distribution width (RBC) [Ratio] 14.7 % Normal 11.5-15.5 [facility] Comment on above: Performed By: #### A DIFF, CBC, ANEU, GFR, BMP #### [place] [address] Hematocrit (Bld) [Volume fraction] 39.7 % Normal 34.0-46.0 [facility] Comment on above: Performed By: #### A DIFF, CBC, ANEU, GFR, BMP #### [place] [address] Hgb 13.2 G/dL Normal 12.0-16.0 [facility] Comment on above: Performed By: #### A DIFF, CBC, ANEU, GFR, BMP #### [place] [address] MCH (RBC) [Entitic mass] 30.6 pg Normal 27.0-33.0 [facility] Comment on above: Performed By: #### A DIFF, CBC, ANEU, GFR, BMP #### [place] [id number] MCHC 33.3 G/dL Normal 32.0-36.0 [facility] Comment on above: Performed By: #### A DIFF, CBC, ANEU, GFR, BMP #### [place] [address] MCV (RBC) [Entitic vol] 91.9 fL Normal 80.0-99.0 [facility] Comment on above: Performed By: #### A DIFF, CBC, ANEU, GFR, BMP #### [place] [address] Platelet 228 10 3/mcL Normal 150-450 [facility] Comment on above: Performed By: #### A DIFF, CBC, ANEU, GFR, BMP #### [place] [address] Platelet mean volume (Bld) [Entitic vol] 10.1 fL Normal 6.6-10.5 [facility] Comment on above: Performed By: #### A DIFF, CBC, ANEU, GFR, BMP #### [place] [address] RBC 4.32 10 6/mcL Normal 4.10-5.30 [facility] Comment on above: Performed By: #### A DIFF, CBC, ANEU, GFR, BMP #### [place] [address] WBC 7.6 10 3/mcL Normal 4.5-10.8 [facility] Comment on above: Performed By: #### A DIFF, CBC, ANEU, GFR, BMP #### [place] [address] CMPon 09-03-2024 Albumin Level 3.0 G/dL Low 3.2-4.8 [facility] Comment on above: Performed By: #### A DIFF, CBC, ANEU, GFR, BMP #### [place] [address] Albumin/Globulin [Mass ratio] 0.9 {ratio} Normal 0.9-1.6 [facility] Comment on above: Performed By: #### A DIFF, CBC, ANEU, GFR, BMP #### [address] [address] ALP [Catalytic activity/Vol] 115 U/L Normal 38-126 [facility] Comment on above: Performed By: #### A DIFF, CBC, ANEU, GFR, BMP #### [address] [address] ALT [Catalytic activity/Vol] 37 U/L Normal 10-49 [facility] Comment on above: Performed By: #### A DIFF, CBC, ANEU, GFR, BMP #### [place] [id number] AST [Catalytic activity/Vol] 31 U/L Normal 8-34 [facility] Comment on above: Performed By: #### A DIFF, CBC, ANEU, GFR, BMP #### [place] [id number] Bili Total 0.50 mg/dL Normal 0.20-1.20 [facility] Comment on above: Result Comment: Use of this assay is not recommended for patients undergoing treatment with eltrombopag due to the potential for falsely elevated results. Performed By: #### A DIFF, CBC, ANEU, GFR, BMP #### [place] [id number] BUN/Creatinine Ratio 29.7 ratio High 10.0-22.0 [facility] Comment on above: Performed By: #### A DIFF, CBC, ANEU, GFR, BMP #### [place] [id number] Calcium [Mass/Vol] 9.6 mg/dL Normal 8.7-10.4 [facility] Comment on above: Performed By: #### A DIFF, CBC, ANEU, GFR, BMP #### [address] [address] Chloride [Moles/Vol] 101 mmol/L Normal 98-110 [facility] Comment on above: Performed By: #### A DIFF, CBC, ANEU, GFR, BMP #### [place] [id number] CO2 [Moles/Vol] 27 mmol/L Normal 22-32 [facility] Comment on above: Performed By: #### A DIFF, CBC, ANEU, GFR, BMP #### [address] [address] Creatinine [Mass/Vol] 1.01 mg/dL Normal 0.50-1.20 [facility] Comment on above: Result Comment: Test ing performed on Linksy analyzer using enzymatic creatinine methodology. Performed By: #### A DIFF, CBC, ANEU, GFR, BMP #### [address] [address] Electrolyte Balance 10.0 mEq/L Normal 4.0-15.0 [facility] Comment on above: Performed By: #### A DIFF, CBC, ANEU, GFR, BMP #### [address] [address] Globulin 3.4 G/dL Normal 1.5-3.8 [facility] Comment on above: Performed By: #### A DIFF, CBC, ANEU, GFR, BMP #### [place] [id number] Glucose [Mass/Vol] 187 mg/dL High 82-115 [facility] Comment on above: Performed By: #### A DIFF, CBC, ANEU, GFR, BMP #### [place] [id number] Potassium [Moles/Vol] 4.6 mmol/L Normal 3.5-5.0 [facility] Comment on above: Performed By: #### A DIFF, CBC, ANEU, GFR, BMP #### [address] [address] Sodium [Moles/Vol] 138 mmol/L Normal 136-145 [facility] Comment on above: Performed By: #### A DIFF, CBC, ANEU, GFR, BMP #### [place] [id number] Total Protein 6.4 G/dL Normal 5.7-8.2 [facility] Comment on above: Performed By: #### A DIFF, CBC, ANEU, GFR, BMP #### [address] [address] Urea nitrogen [Mass/Vol] 30.0 mg/dL High 8.0-22.0 [facility] Comment on above: Performed By: #### A DIFF, CBC, ANEU, GFR, BMP #### [facility] [address] [place] [address] LABORATORYOrdered By: Ann Carrillo on 09-03-2024 Glucose [Mass/Vol] 270 mg/dL [facility] [employer] [place] Work Phone: LABORATORYOrdered By: SYSTEM SYSTEM on 09-03-2024 Albumin BCP dye [Mass/Vol] 3.0 G/dL Low 3.2 - 4.8 G/dL AH ADM SS Albumin/Globulin [Mass ratio] 0.9 {ratio} [...] 0.0 - 2.5 % AH Workflow SS Bilirubin [Mass/Vol] 0.50 mg/dL Normal 0.20 - 1.20 mg/dL AH ADM SS Comment [...] above: Interpretive Data: T esting performed on Linksy analyzer using enzymatic creatinine methodology. Electrolyte Balance [...] 13.2 G/dL Normal 12.0 - 16.0 G/dL Workflow SS Lymphocytes (Bld) [#/Vol] 2.0 103/mcL Normal 0.9 - 4.3 10^3/mcL Workflow SS Lymphocytes/100 WBC (Bld) 26.6 % Normal 20.0 - 40.0 % Workflow SS MCH (RBC) [Entitic mass] 30.6 pg Normal 27.0 - 33.0 pg Workflow SS MCHC 33.3 G/dL Normal 32.0 - 36.0 G/dL Workflow [...] TSHon 09-03-2024 TSH 3.920 mIU/mL Normal 0.550-4.780 [facility] Comment on above: Performed By: #### A DIFF, CBC, ANEU, GFR, BMP #### [place] [address] CT HEAD OR BRAIN W/O CONTRAS Ton [...] 09/02/2024 3:10:44 PM Ordering Provider: SILVINO HA [facility] 08-30-2024 [facility] Telephone (FAMPWS) LINDSAY ACUNA ([id number]) 1945 F Date Time Provider Department 08/30/24 KAMERON CARUSO [facility] During your visit today, we recorded the following information about you: Jaiden Paulino, ZOE 08/30/2024 9:11 AM [facility] with dx: [facility], and [facility]24 to home with [facility] SN PT OT [facility]. Asking if pcp agreeable to follow for [facility]. Please phone Marya with verbal: [phone] Mj Glover APRN.[facility] 08/30/2024 9:19 AM Signed Please let know that Dr. Caruso's team will follow orders. Okay to proceed. Mj Glover APRN.Fouzia Reynoso LPN 08/30/2024 10:09 AM Signed Marya with [facility] notified. Allergies As of Date: 08/30/2024 Noted Allergy Reaction BENZOCAINE 07/08/2005 2 - Rash COCAINE 05/28/2008 Comments: Inverted T PERFUMES 07/08/2005 12 - Shortness of Breath Comments: coughes and chokes SULFA (SULFONAMIDE ANTIBIOTICS) 07/08/2005 5 - Intolerance Date Reviewed: 06/26/2024 Reviewed by: Bret Arambula LPN - Fully Assessed Reason for Visit: [facility] requesting verbal agree to follow [...] Status:Closed by FOUZIA MILLER on 08/30/[address] [facility] .Auto Diffon 08-26-2024 Basophil, Absolute 0.1 10 3/mcL Normal 0.0-0.3 [facility] Comment on above: Performed By: #### A DIFF, CBC, ANEU, GFR, BMP #### [address] [address] Basophils/100 WBC (Bld) 1.0 % Normal 0.0-2.5 [facility] Comment on above: Performed By: #### A DIFF, CBC, ANEU, GFR, BMP #### [address] [address] Eosinophil, Absolute 0.3 10 3/mcL Normal 0.0-0.7 [facility] Comment on above: Performed By: #### A DIFF, CBC, ANEU, GFR, BMP #### [address] [address] Eosinophils/100 WBC (Bld) 4.2 % Normal 0.0-6.0 [facility] Comment on above: Performed By: #### A DIFF, CBC, ANEU, GFR, BMP #### [address] [address] Lymphocyte, Absolute 2.2 10 3/mcL Normal 0.9-4.3 [facility] Comment on above: Performed By: #### A DIFF, CBC, ANEU, GFR, BMP #### [address] [address] Lymphocytes/100 WBC (Bld) 26.3 % Normal 20.0-40.0 [facility] Comment on above: Performed By: #### A DIFF, CBC, ANEU, GFR, BMP #### [address] [address] Monocyte, Absolute 0.9 10 3/mcL Normal 0.1-1.4 [facility] Comment on above: Performed By: #### A DIFF, CBC, ANEU, GFR, BMP #### [address] [address] Monocytes/100 WBC (Bld) 11.4 % Normal 2.0-13.0 [facility] Comment on above: Performed By: #### A DIFF, CBC, ANEU, GFR, BMP #### [address] [address] Neutrophils/100 WBC (Bld) 57.1 % Normal 50.0-75.0 [facility] Comment on above: Performed By: #### A DIFF, CBC, ANEU, GFR, BMP #### [address] [address] .GFRon 08-26-2024 Estimated Glomerular Filtration Rate 59 ml/min/1.73sqm Normal [facility] Comment on above: Result Comment: Stages [...] A DIFF, CBC, ANEU, GFR, BMP #### [address] [address] .NEUABSon 08-26-2024 Neutrophil, Absolute 4.7 10 3/mcL Normal 2.3-8.1 [facility] Comment on above: Performed By: #### A DIFF, CBC, ANEU, GFR, BMP #### [address] [address] BMPon 08-26-2024 BUN/Creatinine Ratio 35.1 ratio High 10.0-22.0 [facility] Comment on above: Performed By: #### A DIFF, CBC, ANEU, GFR, BMP #### [place] [id number] Calcium [Mass/Vol] 9.8 mg/dL Normal 8.7-10.4 [facility] Comment on above: Performed By: #### A DIFF, CBC, ANEU, GFR, BMP #### [place] [id number] Chloride [Moles/Vol] 98 mmol/L Normal 98-110 [facility] Comment on above: Performed By: #### A DIFF, CBC, ANEU, GFR, BMP #### [place] [id number] CO2 [Moles/Vol] 25 mmol/L Normal 22-32 [facility] Comment on above: Performed By: #### A DIFF, CBC, ANEU, GFR, BMP #### [place] [id number] Creatinine [Mass/Vol] 0.97 mg/dL Normal 0.50-1.20 [facility] Comment on above: Result Comment: Test ing performed on Linksy analyzer using enzymatic creatinine methodology. Performed By: #### A DIFF, CBC, ANEU, GFR, BMP #### [place] [id number] Electrolyte Balance 12.0 mEq/L Normal 4.0-15.0 [facility] Comment on above: Performed By: #### A DIFF, CBC, ANEU, GFR, BMP #### [place] [id number] Glucose [Mass/Vol] 160 mg/dL High 82-115 [facility] Comment on above: Performed By: #### A DIFF, CBC, ANEU, GFR, BMP #### [place] [id number] Potassium [Moles/Vol] 4.7 mmol/L Normal 3.5-5.0 [facility] Comment on above: Result Comment: Spec imen slightly hemolyzed. Performed By: #### A DIFF, CBC, ANEU, GFR, BMP #### [place] [id number] Sodium [Moles/Vol] 135 mmol/L Low 136-145 [facility] MAIN Comment on above: Performed By: #### A DIFF, CBC, ANEU, GFR, BMP #### [place] [address] Urea nitrogen [Mass/Vol] 34.0 mg/dL High 8.0-22.0 [facility] MAIN Comment on above: Performed By: #### A DIFF, CBC, ANEU, GFR, BMP #### [place] [id number] [facility] 08-26-2024 Erythrocyte distribution width (RBC) [Ratio] 14.0 % Normal 11.5-15.5 [facility]IN Comment on above: Performed By: #### A DIFF, CBC, ANEU, GFR, BMP #### [place] [address] Hematocrit (Bld) [Volume fraction] 41.0 % Normal 34.0-46.0 [facility] Comment on above: Performed By: #### A DIFF, CBC, ANEU, GFR, BMP #### [place] [address] Hgb 13.4 G/dL Normal 12.0-16.0 [facility] Comment on above: Performed By: #### A DIFF, CBC, ANEU, GFR, BMP #### [address] [address] MCH (RBC) [Entitic mass] 30.0 pg Normal 27.0-33.0 [facility] Comment on above: Performed By: #### A DIFF, CBC, ANEU, GFR, BMP #### [place] [id number] MCHC 32.7 G/dL Normal 32.0-36.0 [facility] Comment on above: Performed By: #### A DIFF, CBC, ANEU, GFR, BMP #### [place] [address] MCV (RBC) [Entitic vol] 91.9 fL Normal 80.0-99.0 [facility]IN Comment on above: Performed By: #### A DIFF, CBC, ANEU, GFR, BMP #### [place] [address] Platelet 297 10 3/mcL Normal 150-450 [facility] MAIN Comment on above: Performed By: #### A DIFF, CBC, ANEU, GFR, BMP #### [place] [address] Platelet mean volume (Bld) [Entitic vol] 11.0 fL High 6.6-10.5 [facility] Comment on above: Performed By: #### A DIFF, CBC, ANEU, GFR, BMP #### [place] [id number] RBC 4.46 10 6/mcL Normal 4.10-5.30 [facility] MA[facility] Comment on above: Performed By: #### A DIFF, CBC, ANEU, GFR, BMP #### [place] [id number] WBC 8.3 10 3/mcL Normal 4.5-10.8 [facility] MA[facility] Comment on above: Performed By: #### A DIFF, CBC, ANEU, GFR, BMP #### [place] [address] LABORATORYOrdered By: SYSTEM SYSTEM on 08-26-2024 Basophils [...] above: Interpretive Data: T esting performed on Linksy analyzer using enzymatic creatinine methodology. Electrolyte Balance [...] 4.7 mmol/L Normal 3.5 - 5.0 mEq/L ADM [...] XR HAND AND WRIST 6 VIEWS LE FTon 08-25-2024 XR HAND AND WRIST 6 VIEWS [...] Sign Date: 08/25/2024 2:27:26 PM Ordering Provider: [facility] XR HUMERUS MINIMUM 2 VIEWS [facility] 08-25-2024 XR HUMERUS MINIMUM 2 VIEWS LEFT [...] Sign Date: 08/25/2024 2:26:11 PM Ordering Provider: [facility] MAIN XR SHOULDER MINIMUM 2 VIEWS [...] 08/25/2024 2:26:45 PM Ordering Provider: JACKLYN LINDSEY [facility] MAIN LABORATORYOrdered By: Kala lux on 08-23-2024 Glucose [Mass/Vol] 278 mg/dL [facility] Work Phone: LABORATORYOrdered By: Kala lux on 08-22-2024 Glucose [Mass/Vol] 320 mg/dL [facility] Work Phone: A1Con 08-21-2024 Glucose [Mass/Vol] 194 mg/dL [facility] MAIN Comment on above: Result Comment: Nancy mated Average Glucose calculated by equation ((28.7xA1C)-46.7) Estimated average glucose (eAG) is a calculated value from Hemoglobin A1C and is marketing representative of the average blood glucose level in the last 2-3 month period. Normal range: less than 114 mg/dL Performed By: #### A 1C #### [address] [address] HbA1c (Bld) [Mass fraction] 8.4 % High 4.0-6.0 [facility] MAIN Comment on above: Performed By: #### A 1C #### [address] [address] LABORATORYOrdered By: SYSTEM SYSTEM on 08-21-2024 Glucose [Mass/Vol] 194 mg/dL Invalid Interpretation Code Auto Chem SS Comment on above: Interpretive Data: E stimated average glucose (eAG) is a calculated value from Hemoglobin A1C and is marketing representative of the average blood glucose level in the last 2-3 month period. Normal range: less than 114 mg/dL HbA1c (Bld) [Mass fraction] 8.4 % High 4.0 - 6.0 % Auto Chem SS .Auto Diffon 08-20-2024 Basophil, Absolute 0.1 10 3/mcL Normal 0.0-0.3 [facility] MAIN Comment on above: Performed By: #### B MP, ADIFF, CBC, GFR, ANEU #### [address] [address] Basophils/100 WBC (Bld) 1.1 % Normal 0.0-2.5 [facility] MAIN Comment on above: Performed By: #### B MP, ADIFF, CBC, GFR, ANEU #### [address] [address] Eosinophil, Absolute 0.3 10 3/mcL Normal 0.0-0.7 [facility] MAIN Comment on above: Performed By: #### B MP, ADIFF, CBC, GFR, ANEU #### [address] [address] Eosinophils/100 WBC (Bld) 3.6 % Normal 0.0-6.0 [facility] MAIN Comment on above: Performed By: #### B MP, ADIFF, CBC, GFR, ANEU #### [address] [address] Lymphocyte, Absolute 1.7 10 3/mcL Normal 0.9-4.3 [facility] MAIN Comment on above: Performed By: #### B MP, ADIFF, CBC, GFR, ANEU #### [address] [address] Lymphocytes/100 WBC (Bld) 20.8 % Normal 20.0-40.0 [facility] MAIN Comment on above: Performed By: #### B MP, ADIFF, CBC, GFR, ANEU #### [address] [address] Monocyte, Absolute 0.9 10 3/mcL Normal 0.1-1.4 [facility] MAIN Comment on above: Performed By: #### B MP, ADIFF, CBC, GFR, ANEU #### [address] [address] Monocytes/100 WBC (Bld) 11.4 % Normal 2.0-13.0 [facility] MAIN Comment on above: Performed By: #### B MP, ADIFF, CBC, GFR, ANEU #### [address] [address] Neutrophils/100 WBC (Bld) 63.1 % Normal 50.0-75.0 [facility] MAIN Comment on above: Performed By: #### B MP, ADIFF, CBC, GFR, ANEU #### [address] [address] .GFRon 08-20-2024 Estimated Glomerular Filtration Rate 55 ml/min/1.73sqm Normal [facility] MAIN Comment on above: Result Comment: Stages [...] A DIFF, CBC, ANEU, GFR, BMP #### [address] [address] .NEUABSon 08-20-2024 Neutrophil, Absolute 5.1 10 3/mcL Normal 2.3-8.1 [facility] MAIN Comment on above: Performed By: #### B MP, ADIFF, CBC, GFR, ANEU #### [address] [address] BMPon 08-20-2024 BUN/Creatinine Ratio 29.8 ratio High 10.0-22.0 [facility] MAIN Comment on above: Performed By: #### B MP, ADIFF, CBC, GFR, ANEU #### [address] [address] Calcium [Mass/Vol] 9.8 mg/dL Normal 8.7-10.4 [facility] MAIN Comment on above: Performed By: #### B MP, ADIFF, CBC, GFR, ANEU #### [address] [address] Chloride [Moles/Vol] 95 mmol/L Low 98-110 [facility] MAIN Comment on above: Performed By: #### B MP, ADIFF, CBC, GFR, ANEU #### [address] [address] CO2 [Moles/Vol] 34 mmol/L High 22-32 [facility] MAIN Comment on above: Performed By: #### B MP, ADIFF, CBC, GFR, ANEU #### [address] [address] Creatinine [Mass/Vol] 1.04 mg/dL Normal 0.50-1.20 [facility] MAIN Comment on above: Result Comment: Test ing performed on Linksy analyzer using enzymatic creatinine methodology. Performed By: #### B MP, ADIFF, CBC, GFR, ANEU #### [place] [id number] Electrolyte Balance 5.0 mEq/L Normal 4.0-15.0 [facility] MAIN Comment on above: Performed By: #### B MP, ADIFF, CBC, GFR, ANEU #### [address] [address] Glucose [Mass/Vol] 244 mg/dL High 82-115 [facility] MAIN Comment on above: Performed By: #### B MP, ADIFF, CBC, GFR, ANEU #### [address] [address] Potassium [Moles/Vol] 4.8 mmol/L Normal 3.5-5.0 [facility] MAIN Comment on above: Result Comment: Spec imen slightly hemolyzed. Performed By: #### B MP, ADIFF, CBC, GFR, ANEU #### [address] [address] Sodium [Moles/Vol] 134 mmol/L Low 136-145 [facility] MA[facility] Comment on above: Performed By: #### B MP, ADIFF, CBC, GFR, ANEU #### [place] [address] Urea nitrogen [Mass/Vol] 31.0 mg/dL High 8.0-22.0 [facility] MAIN Comment on above: Performed By: #### B MP, ADIFF, CBC, GFR, ANEU #### [place] [address] CBCon 08-20-2024 Erythrocyte distribution width (RBC) [Ratio] 14.0 % Normal 11.5-15.5 [facility] MAIN Comment on above: Performed By: #### B MP, ADIFF, CBC, GFR, ANEU #### [place] [address] Hematocrit (Bld) [Volume fraction] 41.9 % Normal 34.0-46.0 [facility] MAIN Comment on above: Performed By: #### B MP, ADIFF, CBC, GFR, ANEU #### [place] [address] Hgb 13.6 G/dL Normal 12.0-16.0 [facility] MAIN Comment on above: Performed By: #### B MP, ADIFF, CBC, GFR, ANEU #### [place] [address] MCH (RBC) [Entitic mass] 29.7 pg Normal 27.0-33.0 [facility] MAIN Comment on above: Performed By: #### B MP, ADIFF, CBC, GFR, ANEU #### [place] [address] MCHC 32.4 G/dL Normal 32.0-36.0 [facility] MAIN Comment on above: Performed By: #### B MP, ADIFF, CBC, GFR, ANEU #### [place] [address] MCV (RBC) [Entitic vol] 91.5 fL Normal 80.0-99.0 [facility] MAIN Comment on above: Performed By: #### B MP, ADIFF, CBC, GFR, ANEU #### [place] [address] Platelet 301 10 3/mcL Normal 150-450 [facility] MAIN Comment on above: Performed By: #### B MP, ADIFF, CBC, GFR, ANEU #### [address] [address] Platelet mean volume (Bld) [Entitic vol] 11.0 fL High 6.6-10.5 [facility] MAIN Comment on above: Performed By: #### B MP, ADIFF, CBC, GFR, ANEU #### [address] [address] RBC 4.58 10 6/mcL Normal 4.10-5.30 [facility] MAIN Comment on above: Performed By: #### B MP, ADIFF, CBC, GFR, ANEU #### [place] [address] WBC 8.1 10 3/mcL Normal 4.5-10.8 [facility] MAIN Comment on above: Performed By: #### B MP, ADIFF, CBC, GFR, ANEU #### [place] [address] LABORATORYOrdered By: SYSTEM SYSTEM on 08-20-2024 Basophils (Bld) [#/Vol] 0.1 103/mcL Normal 0.0 - 0.3 10^3/mcL AH Workflow SS Basophils/100 WBC (Bld) 1.1 % [...] above: Interpretive Data: T esting performed on Linksy analyzer using enzymatic creatinine methodology. Electrolyte Balance [...] 244 mg/dL High 82 - 115 mg/dL ADM SS Hematocrit (Bld) [Volume fraction] 41.9 % Normal 34.0 - 46.0 % AH Workflow SS Hemoglobin (Bld) [Mass/Vol] 13.6 G/dL Normal 12.0 - 16.0 G/dL AH Workflow SS Lymphocytes (Bld) [#/Vol] 1.7 103/mcL Normal 0.9 - 4.3 10^3/mcL Workflow SS Lymphocytes/100 WBC (Bld) 20.8 % [...] 63.1 % Normal 50.0 - 75.0 % Workflow SS Platelet mean volume (Bld) [Entitic vol] 11.0 fL High 6.6 - 10.5 fL Workflow SS Platelets (Bld) [#/Vol] 301 103/mcL Normal 150 - 450 10^3/mcL AH Workflow SS Potassium [Moles/Vol] 4.8 mmol/L Normal 3.5 - 5.0 mEq/L ADM SS Comment on above: Result Comment: Spec imen slightly hemolyzed. RBC (Bld) [#/Vol] 4.58 106/mcL Normal 4.10 - 5.3 0 10^6/mcL Workflow SS Sodium [Moles/Vol] 134 mmol/L Low 136 - 145 mEq/L ADM SS Urea nitrogen [Mass/Vol] 31.0 mg/dL High 8.0 - 22.0 mg/dL ADM SS Urea nitrogen/Creatinine [Mass ratio] 29.8 ratio High 10.0 - 22.0 ratio ADM SS WBC (Bld) [#/Vol] 8.1 103/mcL [...] 08/18/2024 3:14:15 PM Ordering Provider: NANDO Anderson [facility] MAIN .Auto Diffon 08-16-2024 Basophil, Absolute 0.1 10 3/mcL Normal 0.0-0.3 [facility] MAIN Comment on above: Performed By: #### A DIFF, CBC, ANEU, GFR, BMP #### [address] [address] Basophils/100 WBC (Bld) 0.7 % Normal 0.0-2.5 [facility] MAIN Comment on above: Performed By: #### A DIFF, CBC, ANEU, GFR, BMP #### [address] [address] Eosinophil, Absolute 0.3 10 3/mcL Normal 0.0-0.7 [facility] MAIN Comment on above: Performed By: #### A DIFF, CBC, ANEU, GFR, BMP #### [address] [address] Eosinophils/100 WBC (Bld) 2.1 % Normal 0.0-6.0 [facility] MAIN Comment on above: Performed By: #### A DIFF, CBC, ANEU, GFR, BMP #### [address] [address] Lymphocyte, Absolute 1.9 10 3/mcL Normal 0.9-4.3 [facility] MAIN Comment on above: Performed By: #### A DIFF, CBC, ANEU, GFR, BMP #### [address] [address] Lymphocytes/100 WBC (Bld) 14.8 % Low 20.0-40.0 [facility] MAIN Comment on above: Performed By: #### A DIFF, CBC, ANEU, GFR, BMP #### [address] [address] Monocyte, Absolute 1.2 10 3/mcL Normal 0.1-1.4 [facility] MAIN Comment on above: Performed By: #### A DIFF, CBC, ANEU, GFR, BMP #### [address] [address] Monocytes/100 WBC (Bld) 9.8 % Normal 2.0-13.0 [facility] MAIN Comment on above: Performed By: #### A DIFF, CBC, ANEU, GFR, BMP #### [address] [address] Neutrophils/100 WBC (Bld) 72.6 % Normal 50.0-75.0 [facility] MAIN Comment on above: Performed By: #### A DIFF, CBC, ANEU, GFR, BMP #### [address] [address] .GFRon 08-16-2024 Estimated Glomerular Filtration Rate 58 ml/min/1.73sqm Normal [facility] MAIN Comment on above: Result Comment: Stages [...] A DIFF, CBC, ANEU, GFR, BMP #### [address] [address] .NEUABSon 08-16-2024 Neutrophil, Absolute 9.2 10 3/mcL High 2.3-8.1 [facility] MAIN Comment on above: Performed By: #### A DIFF, CBC, ANEU, GFR, BMP #### [address] [address] BMPon 08-16-2024 BUN/Creatinine Ratio 34.3 ratio High 10.0-22.0 [facility] MAIN Comment on above: Performed By: #### A DIFF, CBC, ANEU, GFR, BMP #### [address] [address] Calcium [Mass/Vol] 9.0 mg/dL Normal 8.7-10.4 [facility] MAIN Comment on above: Performed By: #### A DIFF, CBC, ANEU, GFR, BMP #### [address] [address] Chloride [Moles/Vol] 100 mmol/L Normal 98-110 [facility] MAIN Comment on above: Performed By: #### A DIFF, CBC, ANEU, GFR, BMP #### [address] [address] CO2 [Moles/Vol] 30 mmol/L Normal 22-32 [facility] MAIN Comment on above: Performed By: #### A DIFF, CBC, ANEU, GFR, BMP #### [address] [address] Creatinine [Mass/Vol] 0.99 mg/dL Normal 0.50-1.20 [facility] MAIN Comment on above: Result Comment: Test ing performed on Linksy analyzer using enzymatic creatinine methodology. Performed By: #### A DIFF, CBC, ANEU, GFR, BMP #### [address] [address] Electrolyte Balance 5.0 mEq/L Normal 4.0-15.0 [facility] MAIN Comment on above: Performed By: #### A DIFF, CBC, ANEU, GFR, BMP #### [address] [address] Glucose [Mass/Vol] 259 mg/dL High 82-115 [facility] MAIN Comment on above: Performed By: #### A DIFF, CBC, ANEU, GFR, BMP #### [address] [address] Potassium [Moles/Vol] 5.0 mmol/L Normal 3.5-5.0 [facility] MAIN Comment on above: Performed By: #### A DIFF, CBC, ANEU, GFR, BMP #### [address] [address] Sodium [Moles/Vol] 135 mmol/L Low 136-145 [facility] MA[facility] Comment on above: Performed By: #### A DIFF, CBC, ANEU, GFR, BMP #### [address] [address] Urea nitrogen [Mass/Vol] 34.0 mg/dL High 8.0-22.0 [facility] MA[facility] Comment on above: Performed By: #### A DIFF, CBC, ANEU, GFR, BMP #### [address] [address] CBCon 08-16-2024 Erythrocyte distribution width (RBC) [Ratio] 13.7 % Normal 11.5-15.5 [facility] MAIN Comment on above: Performed By: #### A DIFF, CBC, ANEU, GFR, BMP #### [place] [id number] Hematocrit (Bld) [Volume fraction] 43.3 % Normal 34.0-46.0 [facility] MAIN Comment on above: Performed By: #### A DIFF, CBC, ANEU, GFR, BMP #### [place] [id number] Hgb 13.9 G/dL Normal 12.0-16.0 [facility] MAIN Comment on above: Performed By: #### A DIFF, CBC, ANEU, GFR, BMP #### [place] [id number] MCH (RBC) [Entitic mass] 30.0 pg Normal 27.0-33.0 [facility] MAIN Comment on above: Performed By: #### A DIFF, CBC, ANEU, GFR, BMP #### [place] [address] MCHC 32.1 G/dL Normal 32.0-36.0 [facility] Comment on above: Performed By: #### A DIFF, CBC, ANEU, GFR, BMP #### [place] [id number] MCV (RBC) [Entitic vol] 93.6 fL Normal 80.0-99.0 [facility] MAIN Comment on above: Performed By: #### A DIFF, CBC, ANEU, GFR, BMP #### [place] [id number] Platelet 230 10 3/mcL Normal 150-450 [facility] MAIN Comment on above: Performed By: #### A DIFF, CBC, ANEU, GFR, BMP #### [place] [id number] Platelet mean volume (Bld) [Entitic vol] 10.7 fL High 6.6-10.5 [facility] Comment on above: Performed By: #### A DIFF, CBC, ANEU, GFR, BMP #### [place] [id number] RBC 4.63 10 6/mcL Normal 4.10-5.30 [facility] Comment on above: Performed By: #### A DIFF, CBC, ANEU, GFR, BMP #### [place] [address] [place] [address] WBC 12.7 10 3/mcL High 4.5-10.8 [facility] MAIN Comment on above: Performed By: #### A DIFF, CBC, ANEU, GFR, BMP #### [facility] [address] [place] [address] LABORATORYOrdered By: Marily Panda on 08-16-2024 Blood Glucose Interventions Administered agent to decrease blood sugar (08/16/24 12:23 PM) [employer] Work Phone: Blood Glucose Interventions Retest (08/16/24 10:15 AM) [employer] Work Phone: Bacteria identified Cx Nom ( Bld)on 08-15-2024 Bacteria identified Cx Nom (Unsp spec) NO GROWTH DAY 5 OF 5 [facility] CARDIAC RHYTHMon 08-15-2024 [facility] CBC,PLATELETSon 08-15-2024 Erythrocyte distribution width (RBC) [Ratio] 13.4 % 10.8 - 14.9 % [facility] Hematocrit (Bld) [Volume fraction] 43.8 % 34.9 - 44.3 % [facility] Hemoglobin (Bld) [Mass/Vol] 13.5 g/dL 11.4 - 15.2 g/dL [facility] Interpretation and review of laboratory results Abnormal [facility] MCH (RBC) [Entitic mass] 28.9 pg 25.9 - 33.9 pg [facility] MCHC (RBC) [Mass/Vol] 30.8 g/dL Low 31.4 - 35.9 g/dL [facility] MCV (RBC) [Entitic vol] 93.8 fL 79.6 - 97.7 fL [facility] Platelet mean volume (Bld) [Entitic vol] 12 fL 8.5 - 12.2 fL [facility] Platelets (Bld) [#/Vol] 252 10*3/uL 150 - 393 K/uL [facility] RBC (Bld) [#/Vol] 4.67 10*6/uL [facility] WBC (Bld) [#/Vol] 11.94 10*3/uL High 3.99 - 11.19 K/uL [facility] Hematocrit (Bld) [Volume fraction] 43.8 % Normal 34.9-44.3 [facility] Comment on above: Performed By: #### X M #### [facility] (DEFAULT) [address] [place] [address] Hemoglobin (Bld) [Mass/Vol] 13.5 g/dL Normal 11.4-15.2 [facility] Comment on above: Performed By: #### X M #### [facility] (DEFAULT) [address] [place] [address] MCV (RBC) [Entitic vol] 93.8 fL Normal 79.6-97.7 O [facility] Comment on above: Performed By: #### X M #### [facility] (DEFAULT) [address] [address] Mean Cell Hgb 28.9 pg Normal 25.9-33.9 [facility] Comment on above: Performed By: #### X M #### [facility] (DEFAULT) [address] [place] [address] Mean Cell Hgb Conc 30.8 g/dL Low 31.4-35.9 [facility] Comment on above: Performed By: #### X M #### [facility] (DEFAULT) [address] [place] [address] Platelet mean volume (Bld) [Entitic vol] 12.0 fL Normal 8.5-12.2 [facility] Comment on above: Performed By: #### X M #### [facility] (DEFAULT) [address] [place] [address] Platelets (Bld) [#/Vol] 252 10*3/uL Normal 150-393 [facility] Comment on above: Performed By: #### X M #### [facility] (DEFAULT) [address] [place] [address] RBC (Bld) [#/Vol] 4.67 10*6/uL Normal 3.91-5.04 [facility] Comment on above: Performed By: #### X M #### [facility] (DEFAULT) [address] [place] [address] RBC Distribution 13.4 % Normal 10.8-14.9 [facility] Comment on above: Performed By: #### X M #### [facility] (DEFAULT) [address] [place] [address] WBC (Bld) [#/Vol] 11.94 10*3/uL High 3.99-11.19 [facility] Comment on above: Performed By: #### X M #### [facility] (DEFAULT) [address] [place] [address] CHEM 7 (LYTES,BUN,CREA,GLUC) on 08-15-2024 Anion gap [Moles/Vol] 16 mmol/L 7 - 17 mmol/L [facility] Chloride [Moles/Vol] 99 mmol/L 98 - 10 8 mmol/L [facility] CO2 [Moles/Vol] 25 mmol/L 21 - 31 mmol/L [facility] Creatinine [Mass/Vol] 1.27 mg/dL High 0.50 - 1.20 mg/dL [facility] eGFR, CKD-EPI, Female 43 Low - PINF [facility] Glucose [Mass/Vol] 214 mg/dL High 70 - 179 mg/dL [facility] Interpretation and review of laboratory results Abnormal [facility] Osmolality Calc [Osmolality] 306 High [facility] Potassium [Moles/Vol] 4.8 mmol/L 3.5 - 5.0 mmol/L [facility] Sodium [Moles/Vol] 135 mmol/L 135 - 145 mmol/L [facility] Urea nitrogen [Mass/Vol] 51 mg/dL High 7 - 25 mg/dL [facility] Urea nitrogen/Creatinine [Mass ratio] 40 mg/mg [facility] Anion gap [Moles/Vol] 16 mmol/L Normal 7-17 [facility] Comment on above: Performed By: #### [facility] #### [facility] (DEFAULT) [address] [place] [address] Chloride [Moles/Vol] 99 mmol/L Normal 98-108 [facility] Comment on above: Performed By: #### [facility] #### [facility] (DEFAULT) [address] [place] [address] CO2 [Moles/Vol] 25 mmol/L Normal 21-31 [facility] Comment on above: Performed By: #### [facility] #### [facility] (DEFAULT) [address] [place] [address] Creatinine [Mass/Vol] 1.27 mg/dL High 0.50-1.20 [facility] Comment on above: Performed By: #### [facility] #### [facility] (DEFAULT) [address] [place] [address] GFR/1.73 sq M.predicted among non-blacks MDRD (S/P/Bld) [Vol rate/Area] 43 mL/min/{1.73_m2} Low >=60 [facility] Comment on above: Result Comment: Repo rted eGFR is based on the CKD-EPI 2020 equation using creatinine, age, and sex. Performed By: #### [facility] #### [facility] (DEFAULT) [address] [place] [address] Glucose [Mass/Vol] 214 mg/dL High Nonfastin -179 mg/dL; Fastin-99 [facility] Comment on above: Performed By: #### [facility] #### [facility] (DEFAULT) [address] [place] [address] Osmolality [Osmolality] 306 mosm/kg High 278-305 [facility] Comment on above: Performed By: #### H [facility] #### [facility] (DEFAULT) [address] [place] [address] Potassium [Moles/Vol] 4.8 mmol/L Normal 3.5-5.0 [facility] Comment on above: Performed By: #### H EMOGC #### [facility] (DEFAULT) [address] [place] [address] Sodium [Moles/Vol] 135 mmol/L Normal 135-145 [facility] Comment on above: Performed By: #### H EMOGC #### [facility] (DEFAULT) [address] [place] [address] Urea nitrogen [Mass/Vol] 51 mg/dL High 7-25 [facility] Comment on above: Performed By: #### H EMOGC #### [facility] (DEFAULT) [address] [place] [address] [id number] Urea nitrogen/Creatinine [Mass ratio] 40 mg/mg Normal [facility] Comment on above: Performed By: #### H EMOGC #### U [facility] (DEFAULT) [address] [place] [address] 11496 GLUCOSE POCon 08-15-2024 Glucose [Mass/Vol] 190 mg/dL High 70 - 179 mg/dL [facility] Interpretation and review of laboratory results Abnormal [facility] POC Sample Type CAPBL [facility] Glucose [Mass/Vol] 146 mg/dL 70 - 179 mg/dL [facility] POC Sample Type CAPBL [facility] Glucose [Mass/Vol] 215 mg/dL High 70 - 179 mg/dL [facility] Interpretation and review of laboratory results Abnormal [facility] POC Sample Type CAPBL [facility] MAGNESIUMon 08-15-2024 Interpretation and review of laboratory results Normal [facility] Magnesium [Mass/Vol] 1.6 mg/dL 1.6 - 2 .6 mg/dL [facility] Magnesium [Mass/Vol] 1.6 mg/dL Normal 1.6-2.6 [facility] Comment on above: Performed By: #### H [facility] #### [facility] (DEFAULT) [address] [place] [address] No Panel Informationon 08-15 [facility] CBC,PLATELETSon 08-14-2024 Erythrocyte distribution width (RBC) [Ratio] 13.4 % 10.8 - 14.9 % [facility] Hematocrit (Bld) [Volume fraction] 47.9 % High 34.9 - 44.3 % [facility] Hemoglobin (Bld) [Mass/Vol] 14.3 g/dL 11.4 - 15.2 g/dL [facility] Interpretation and review of laboratory results Abnormal [facility] MCH (RBC) [Entitic mass] 29.3 pg 25.9 - 33.9 pg [facility] MCHC (RBC) [Mass/Vol] 29.9 g/dL Low 31.4 - 35.9 g/dL [facility] MCV (RBC) [Entitic vol] 98.2 fL High 79.6 - 97.7 fL [facility] Platelet mean volume (Bld) [Entitic vol] 11.3 fL 8.5 - 12.2 fL [facility] Platelets (Bld) [#/Vol] 229 10*3/uL 150 - 393 K/uL [facility] RBC (Bld) [#/Vol] 4.88 10*6/uL [facility] WBC (Bld) [#/Vol] 12.14 10*3/uL High 3.99 - 11.19 K/uL [facility] Hematocrit (Bld) [Volume fraction] 47.9 % High 34.9-44.3 [facility] Comment on above: Performed By: #### X M #### [facility] (DEFAULT) [address] [place] [address] 68075 Hemoglobin (Bld) [Mass/Vol] 14.3 g/dL Normal 11.4-15.2 [facility] Comment on above: Performed By: #### X M #### [facility] (DEFAULT) [address] [place] [address] 14687 MCV (RBC) [Entitic vol] 98.2 fL High 79.6-97.7 [facility] Comment on above: Performed By: #### X M #### [facility] (DEFAULT) [address] [place] [address] 37124 Mean Cell Hgb 29.3 pg Normal 25.9-33.9 [facility] Comment on above: Performed By: #### X M #### [facility] (DEFAULT) [address] [place] [address] 29076 Mean Cell Hgb Conc 29.9 g/dL Low 31.4-35.9 [facility] Comment on above: Performed By: #### X M #### [facility] (DEFAULT) [address] [place] [address] 55866 Platelet mean volume (Bld) [Entitic vol] 11.3 fL Normal 8.5-12.2 [facility] Comment on above: Performed By: #### X M #### [facility] (DEFAULT) [address] [place] [address] 40230 Platelets (Bld) [#/Vol] 229 10*3/uL Normal 150-393 [facility] Comment on above: Performed By: #### X M #### [facility] (DEFAULT) [address] [place] [address] 20139 RBC (Bld) [#/Vol] 4.88 10*6/uL Normal 3.91-5.04 [facility] Comment on above: Performed By: #### X M #### U [facility] (DEFAULT) [address] [place] [address] RBC Distribution 13.4 % Normal 10.8-14.9 [facility] Comment on above: Performed By: #### X M #### U [facility] (DEFAULT) [address] [place] [address] WBC (Bld) [#/Vol] 12.14 10*3/uL High 3.99-11.19 [facility] Comment on above: Performed By: #### X M #### [facility] (DEFAULT) [address] [place] [address] CHEM 7 (LYTES,BUN,CREA,GLUC) on 08-14-2024 Anion gap [Moles/Vol] 16 mmol/L 7 - 17 mmol/L [facility] Chloride [Moles/Vol] 101 mmol/L 98 - 10 8 mmol/L [facility] CO2 [Moles/Vol] 23 mmol/L 21 - 31 mmol/L [facility] Creatinine [Mass/Vol] 1.15 mg/dL 0.50 - 1.20 mg/dL [facility] eGFR, CKD-EPI, Female 48 Low - PINF [facility] Glucose [Mass/Vol] 208 mg/dL High 70 - 179 mg/dL [facility] Interpretation and review of laboratory results Abnormal [facility] Osmolality Calc [Osmolality] 304 [facility] Potassium [Moles/Vol] 4.7 mmol/L 3.5 - 5.0 mmol/L [facility] Sodium [Moles/Vol] 135 mmol/L 135 - 145 mmol/L [facility] Urea nitrogen [Mass/Vol] 47 mg/dL High 7 - 25 mg/dL [facility] Urea nitrogen/Creatinine [Mass ratio] 41 mg/mg [facility] Anion gap [Moles/Vol] 16 mmol/L Normal 7-17 [facility] Comment on above: Performed By: #### B LDCULT #### [facility] (DEFAULT) [address] [place] [address] 62871 Chloride [Moles/Vol] 101 mmol/L Normal 98-108 [facility] Comment on above: Performed By: #### B LDCULT #### [facility] (DEFAULT) [address] [place] [address] 12064 CO2 [Moles/Vol] 23 mmol/L Normal 21-31 [facility] Comment on above: Performed By: #### B LDCULT #### U [facility] (DEFAULT) [address] [place] [address] 58660 Creatinine [Mass/Vol] 1.15 mg/dL Normal 0.50-1.20 [facility] Comment on above: Performed By: #### B LDCULT #### [facility] (DEFAULT) [address] [place] [address] 94660 GFR/1.73 sq M.predicted among non-blacks MDRD (S/P/Bld) [Vol rate/Area] 48 mL/min/{1.73_m2} Low >=60 [facility] Comment on above: Result Comment: Repo rted eGFR is based on the CKD-EPI 2020 equation using creatinine, age, and sex. Performed By: #### B LDCULT #### [facility] (DEFAULT) [address] [place] [address] 89948 Glucose [Mass/Vol] 208 mg/dL High Nonfastin -179 mg/dL; Fastin-99 [facility] Comment on above: Performed By: #### B LDCULT #### U [facility] (DEFAULT) [address] [place] [address] 03689 Osmolality [Osmolality] 304 mosm/kg Normal 278-305 [facility] Comment on above: Performed By: #### B LDCULT #### U [facility] (DEFAULT) [address] [place] [address] 10404 Potassium [Moles/Vol] 4.7 mmol/L Normal 3.5-5.0 [facility] Comment on above: Performed By: #### B LDCULT #### [facility] (DEFAULT) [address] [place] [address] Sodium [Moles/Vol] 135 mmol/L Normal 135-145 [facility] Comment on above: Performed By: #### B LDCULT #### [facility] [address] [place] [address] Urea nitrogen [Mass/Vol] 47 mg/dL High 7-25 [facility] Comment on above: Performed By: #### B LDCULT #### [facility] (DEFAULT) [address] [place] [address] 47546 Urea nitrogen/Creatinine [Mass ratio] 41 mg/mg Normal [facility] Comment on above: Performed By: #### B LDCULT #### [facility] (DEFAULT) [address] [place] [address] 71386 GLUCOSE POCon 08-14-2024 Glucose [Mass/Vol] 204 mg/dL High 70 - 179 mg/dL [facility] Interpretation and review of laboratory results Abnormal [facility] POC Sample Type CAPBL [facility] Glucose [Mass/Vol] 264 mg/dL High 70 - 179 mg/dL [facility] Interpretation and review of laboratory results Abnormal [facility] POC Sample Type CAPBL [facility] Glucose [Mass/Vol] 189 mg/dL High 70 - 179 mg/dL [facility] Interpretation and review of laboratory results Abnormal [facility] POC Sample Type CAPBL [facility] 08-14-2024 Interpretation and review of laboratory results [facility] Magnesium [Mass/Vol] 1.6 mg/dL 1.6 - 2 .6 mg/dL [facility] Magnesium [Mass/Vol] 1.6 mg/dL Normal 1.6-2.6 [facility] Comment on above: Performed By: #### B LDCULT #### [facility] (DEFAULT) [address] [address] No Panel Informationon 08-14 [facility] CBC,PLATELETSon 08-13-2024 Erythrocyte distribution width (RBC) [Ratio] 13.4 % 10.8 - 14.9 % [facility] Hematocrit (Bld) [Volume fraction] 45.7 % High 34.9 - 44.3 % [facility] Hemoglobin (Bld) [Mass/Vol] 14.3 g/dL 11.4 - 15.2 g/dL [facility] Interpretation and review of laboratory results Abnormal [facility] MCH (RBC) [Entitic mass] 29.5 pg 25.9 - 33.9 pg [facility] MCHC (RBC) [Mass/Vol] 31.3 g/dL Low 31.4 - 35.9 g/dL [facility] MCV (RBC) [Entitic vol] 94.2 fL 79.6 - 97.7 fL [facility] Platelet mean volume (Bld) [Entitic vol] 11.7 fL 8.5 - 12.2 fL [facility] Platelets (Bld) [#/Vol] 245 10*3/uL 150 - 393 K/uL [facility] RBC (Bld) [#/Vol] 4.85 10*6/uL [facility] WBC (Bld) [#/Vol] 12.02 10*3/uL High 3.99 - 11.19 K/uL [facility] Hematocrit (Bld) [Volume fraction] 45.7 % High 34.9-44.3 [facility] Comment on above: Performed By: #### H EMO #### [facility] (DEFAULT) [address] [place] [address] 09425 Hemoglobin (Bld) [Mass/Vol] 14.3 g/dL Normal 11.4-15.2 [facility] Comment on above: Performed By: #### H EMOGC #### [facility] (DEFAULT) [address] [address] MCV (RBC) [Entitic vol] 94.2 fL Normal 79.6-97.7 O [facility] Comment on above: Performed By: #### H EMOGC #### [facility] (DEFAULT) [address] [address] Mean Cell Hgb 29.5 pg Normal 25.9-33.9 [facility] Comment on above: Performed By: #### H EMOGC #### [facility] (DEFAULT) [address] [address] Mean Cell Hgb Conc 31.3 g/dL Low 31.4-35.9 [facility] Comment on above: Performed By: #### H EMOGC #### [facility] (DEFAULT) [address] [address] Platelet mean volume (Bld) [Entitic vol] 11.7 fL Normal 8.5-12.2 [facility] Comment on above: Performed By: #### H EMOGC #### [facility] (DEFAULT) [address] [address] Platelets (Bld) [#/Vol] 245 10*3/uL Normal 150-393 [facility] Comment on above: Performed By: #### H EMOGC #### [facility] (DEFAULT) [address] [address] RBC (Bld) [#/Vol] 4.85 10*6/uL Normal 3.91-5.04 [facility] Comment on above: Performed By: #### H EMOGC #### [facility] (DEFAULT) [address] [address] RBC Distribution 13.4 % Normal 10.8-14.9 [facility] Comment on above: Performed By: #### H EMOGC #### [facility] (DEFAULT) [address] [place] [address] 83493 WBC (Bld) [#/Vol] 12.02 10*3/uL High 3.99-11.19 [facility] Comment on above: Performed By: #### [facility] #### [facility] (DEFAULT) [address] [place] [address] 38061 CHEM 7 (LYTES,BUN,CREA,GLUC) on 08-13-2024 Anion gap [Moles/Vol] 15 mmol/L 7 - 17 mmol/L [facility] Chloride [Moles/Vol] 104 mmol/L 98 - 10 8 mmol/L [facility] CO2 [Moles/Vol] 23 mmol/L 21 - 31 mmol/L [facility] Creatinine [Mass/Vol] 1.18 mg/dL 0.50 - 1.20 mg/dL [facility] eGFR, CKD-EPI, Female 47 Low - PINF [facility] Glucose [Mass/Vol] 225 mg/dL High 70 - 179 mg/dL [facility] Interpretation and review of laboratory results Abnormal [facility] Osmolality Calc [Osmolality] 311 High [facility] Potassium [Moles/Vol] 4.6 mmol/L 3.5 - 5.0 mmol/L [facility] Sodium [Moles/Vol] 137 mmol/L 135 - 145 mmol/L [facility] Urea nitrogen [Mass/Vol] 55 mg/dL High 7 - 25 mg/dL [facility] Urea nitrogen/Creatinine [Mass ratio] 47 mg/mg [facility] Anion gap [Moles/Vol] 15 mmol/L Normal 7-17 [facility] Comment on above: Performed By: #### [facility] #### [facility] (DEFAULT) [address] [place] [address] 15225 Chloride [Moles/Vol] 104 mmol/L Normal 98-108 [facility] Comment on above: Performed By: #### H [facility] #### [facility] (DEFAULT) [address] [place] [address] 37949 CO2 [Moles/Vol] 23 mmol/L Normal 21-31 [facility] Comment on above: Performed By: #### H EMO #### U [facility] (DEFAULT) [address] [place] [address] 48769 Creatinine [Mass/Vol] 1.18 mg/dL Normal 0.50-1.20 [facility] Comment on above: Performed By: #### H EMO #### [facility] (DEFAULT) [address] [place] [address] 21603 GFR/1.73 sq M.predicted among non-blacks MDRD (S/P/Bld) [Vol rate/Area] 47 mL/min/{1.73_m2} Low >=60 [facility] Comment on above: Result Comment: Repo rted eGFR is based on the CKD-EPI 2020 equation using creatinine, age, and sex. Performed By: #### H [facility] #### [facility] (DEFAULT) [address] [place] [address] 35329 Glucose [Mass/Vol] 225 mg/dL High Nonfastin -179 mg/dL; Fastin-99 [facility] Comment on above: Performed By: #### H [facility] #### [facility] (DEFAULT) [address] [place] [address] 25441 Osmolality [Osmolality] 311 mosm/kg High 278-305 [facility] Comment on above: Performed By: #### H EMO #### [facility] (DEFAULT) [address] [place] [address] 93540 Potassium [Moles/Vol] 4.6 mmol/L Normal 3.5-5.0 [facility] Comment on above: Performed By: #### H EMOGC #### [facility] (DEFAULT) [address] [place] [address] 97972 Sodium [Moles/Vol] 137 mmol/L Normal 135-145 [facility] Comment on above: Performed By: #### H EMO #### [facility] (DEFAULT) [address] [place] [address] Urea nitrogen [Mass/Vol] 55 mg/dL High 7-25 [facility] Comment on above: Performed By: #### H EMO #### [facility] (DEFAULT) [address] [place] [address] Urea nitrogen/Creatinine [Mass ratio] 47 mg/mg Normal [facility] Comment on above: Performed By: #### H [facility] #### [facility] (DEFAULT) [address] [place] [address] GLUCOSE POCon 08-13-2024 Glucose [Mass/Vol] 195 mg/dL High 70 - 179 mg/dL [facility] Interpretation and review of laboratory results Abnormal [facility] POC Sample Type CAPBL [facility] Glucose [Mass/Vol] 198 mg/dL High 70 - 179 mg/dL [facility] Interpretation and review of laboratory results Abnormal [facility] POC Sample Type CAPBL [facility] Glucose [Mass/Vol] 158 mg/dL 70 - 179 mg/dL [facility] POC Sample Type [facility] Glucose [Mass/Vol] 211 mg/dL High 70 - 179 mg/dL [facility] Interpretation and review of laboratory results Abnormal [facility] POC Sample Type [facility] Glucose [Mass/Vol] 240 mg/dL High 70 - 179 mg/dL [facility] Interpretation and review of laboratory results Abnormal [facility] POC Sample Type CAPBL [facility] MAGNESIUMon 08-13-2024 Interpretation and review of laboratory results Normal [facility] Magnesium [Mass/Vol] 1.8 mg/dL 1.6 - 2 .6 mg/dL [facility] Magnesium [Mass/Vol] 1.8 mg/dL Normal 1.6-2.6 [facility] Comment on above: Performed By: #### H [facility] #### [facility] (DEFAULT) [address] [place] [address] No Panel Informationon 08-13 [facility] CBC,PLATELETSon 08-12-2024 Erythrocyte distribution width (RBC) [Ratio] 13.6 % 10.8 - 14.9 % [facility] Hematocrit (Bld) [Volume fraction] 45.1 % High 34.9 - 44.3 % [facility] Hemoglobin (Bld) [Mass/Vol] 14.3 g/dL 11.4 - 15.2 g/dL [facility] Interpretation and review of laboratory results Abnormal [facility] MCH (RBC) [Entitic mass] 29.7 pg 25.9 - 33.9 pg [facility] MCHC (RBC) [Mass/Vol] 31.7 g/dL 31.4 - 35.9 g/dL [facility] MCV (RBC) [Entitic vol] 93.6 fL 79.6 - 97.7 fL [facility] Platelet mean volume (Bld) [Entitic vol] 11.4 fL 8.5 - 12.2 fL [facility] Platelets (Bld) [#/Vol] 241 10*3/uL 150 - 393 K/uL [facility] RBC (Bld) [#/Vol] 4.82 10*6/uL [facility] WBC (Bld) [#/Vol] 14.32 10*3/uL High 3.99 - 11.19 K/uL [facility] Hematocrit (Bld) [Volume fraction] 45.1 % High 34.9-44.3 [facility] Comment on above: Performed By: #### H [facility] #### [facility] (DEFAULT) [address] [address] Hemoglobin (Bld) [Mass/Vol] 14.3 g/dL Normal 11.4-15.2 [facility] Comment on above: Performed By: #### H EMOGC #### [facility] (DEFAULT) [address] [place] [address] 18119 MCV (RBC) [Entitic vol] 93.6 fL Normal 79.6-97.7 O [facility] Comment on above: Performed By: #### H EMOGC #### [facility] (DEFAULT) [address] [place] [address] 15058 Mean Cell Hgb 29.7 pg Normal 25.9-33.9 [facility] Comment on above: Performed By: #### H EMO #### [facility] (DEFAULT) [address] [place] [address] 90523 Mean Cell Hgb Conc 31.7 g/dL Normal 31.4-35.9 [facility] Comment on above: Performed By: #### H EMOGC #### [facility] (DEFAULT) [address] [place] [address] 26782 Platelet mean volume (Bld) [Entitic vol] 11.4 fL Normal 8.5-12.2 [facility] Comment on above: Performed By: #### H EMOGC #### [facility] (DEFAULT) [address] [place] [address] 93008 Platelets (Bld) [#/Vol] 241 10*3/uL Normal 150-393 [facility] Comment on above: Performed By: #### H EMOGC #### [facility] (DEFAULT) [address] [place] [address] 57016 RBC (Bld) [#/Vol] 4.82 10*6/uL Normal 3.91-5.04 [facility] Comment on above: Performed By: #### H EMOGC #### [facility] (DEFAULT) [address] [place] [address] 29037 RBC Distribution 13.6 % Normal 10.8-14.9 [facility] Comment on above: Performed By: #### [facility] #### [facility] (DEFAULT) [address] [place] [address] WBC (Bld) [#/Vol] 14.32 10*3/uL High 3.99-11.19 [facility] Comment on above: Performed By: #### H EMO #### [facility] (DEFAULT) [address] [place] [address] CHEM 7 (LYTES,BUN,CREA,GLUC) on 08-12-2024 Anion gap [Moles/Vol] 15 mmol/L 7 - 17 mmol/L [facility] Chloride [Moles/Vol] 104 mmol/L 98 - 10 8 mmol/L [facility] CO2 [Moles/Vol] 27 mmol/L 21 - 31 mmol/L [facility] Creatinine [Mass/Vol] 1.36 mg/dL High 0.50 - 1.20 mg/dL [facility] eGFR, CKD-EPI, Female 40 Low - PINF [facility] Glucose [Mass/Vol] 126 mg/dL 70 - 179 mg/dL [facility] Interpretation and review of laboratory results Abnormal [facility] Osmolality Calc [Osmolality] 313 High [facility] Potassium [Moles/Vol] 4.5 mmol/L 3.5 - 5.0 mmol/L [facility] Sodium [Moles/Vol] 141 mmol/L 135 - 145 mmol/L [facility] Urea nitrogen [Mass/Vol] 56 mg/dL High 7 - 25 mg/dL [facility] Urea nitrogen/Creatinine [Mass ratio] 41 mg/mg [facility] Anion gap [Moles/Vol] 15 mmol/L Normal 7-17 [facility] Comment on above: Performed By: #### T YPEC #### [facility] (DEFAULT) [address] [place] [address] Chloride [Moles/Vol] 104 mmol/L Normal 98-108 [facility] Comment on above: Performed By: #### T YPEC #### [facility] (DEFAULT) [address] [place] [address] 56372 CO2 [Moles/Vol] 27 mmol/L Normal 21-31 [facility] Comment on above: Performed By: #### T YPEC #### [facility] (DEFAULT) [address] [place] [address] 03632 Creatinine [Mass/Vol] 1.36 mg/dL High 0.50-1.20 [facility] Comment on above: Performed By: #### T YPEC #### [facility] (DEFAULT) [address] [place] [address] 15856 GFR/1.73 sq M.predicted among non-blacks MDRD (S/P/Bld) [Vol rate/Area] 40 mL/min/{1.73_m2} Low >=60 [facility] Comment on above: Result Comment: Repo rted eGFR is based on the CKD-EPI 2020 equation using creatinine, age, and sex. Performed By: #### T YPEC #### [facility] (DEFAULT) [address] [place] [address]35 Glucose [Mass/Vol] 126 mg/dL Normal Nonfastin -179 mg/dL; Fastin-99 [facility] Comment on above: Performed By: #### T YPEC #### [facility] (DEFAULT) [address] [place] [address]2014 Osmolality [Osmolality] 313 mosm/kg High 278-305 [facility] Comment on above: Performed By: #### T YPEC #### [facility] (DEFAULT) [address] [place] [address] 32586 Potassium [Moles/Vol] 4.5 mmol/L Normal 3.5-5.0 [facility] Comment on above: Performed By: #### T YPEC #### [facility] (DEFAULT) [address] [place] [address] [id number] Sodium [Moles/Vol] 141 mmol/L Normal 135-145 [facility] Comment on above: Performed By: #### T YPEC #### [facility] (DEFAULT) [address] [place] [address] 63169 Urea nitrogen [Mass/Vol] 56 mg/dL High 7-25 [facility] Comment on above: Performed By: #### T YPEC #### [facility] (DEFAULT) [address] [place] [address] 06340 Urea nitrogen/Creatinine [Mass ratio] 41 mg/mg Normal [facility] Comment on above: Performed By: #### T YPEC #### [facility] (DEFAULT) [address] [place] [address] 24036 GLUCOSE POCon 08-12-2024 Glucose [Mass/Vol] 231 mg/dL High 70 - 179 mg/dL [facility] Interpretation and review of laboratory results Abnormal [facility] POC Sample Type CAPBL [facility] Glucose [Mass/Vol] 208 mg/dL High 70 - 179 mg/dL [facility] Interpretation and review of laboratory results Abnormal [facility] POC Sample Type CAPBL [facility] Glucose [Mass/Vol] 160 mg/dL 70 - 179 mg/dL [facility] POC Sample Type CAPBL [facility] Glucose [Mass/Vol] 107 mg/dL 70 - 179 mg/dL [facility] POC Sample Type CAPBL [facility] MAGNESIUMon 08-12-2024 Interpretation and review of laboratory results Normal [facility] Magnesium [Mass/Vol] 2.2 mg/dL 1.6 - 2 .6 mg/dL [facility] Magnesium [Mass/Vol] 2.2 mg/dL Normal 1.6-2.6 [facility] Comment on above: Performed By: #### T YPEC #### [facility] (DEFAULT) [address] [place] [address] No Panel Informationon 08-12 [facility] SURG PATH REQUESTOrdered By: Renae Glez on 08-12-2024 Case Report [facility] Clinical History w2sndIOwGOIzbVZkHZMx NVx lccBaNQWkwRLcQ4EozkuoFB xjTQ1jFQ3keVfykJZhdKYgN IXyTeAwq8bod106oHBei6cn QHJUgxzrmUy7zRxhS64lm7W 1FzioS6eyHSDkGKreBGEoZC aldVHkXGi2GXJecXVtazTqR qQhRYMtcNNnfIM4TTPnDF8d dxzyPRvkPRafKBAjplT7ILL irUEiX7WbSPCzFO6auyjwUG U3HKijSLSdPOE8TyPbCVDui 1Xsfbw8XqSdcJk1q8uyNJYx ZSSqmOeuy7yxLAJ4ZXYajKK yC4yvqF6kBBMvKF1jwnrhb8 eyDUydJZglIGVbkAM9sqZ8M XRnkWBtX7YrdD8vKXBfDDRl kiWblPxjfB8aNpHkFSegNlH nTh1ZKVmNQiBmUVKxk8QhCT SnOPAMuOGzag8xgEY7HZHPc 75hQrSaCKYzmSDzzDPCkMU5 y6D8YgJpKn2njUTvdEBvzCA tzZB2m1L8BPGla8VhKFBqHq xwYXJ9 [facility] For Immediate Release to Patient's MyChart? Yes Yes [facility] Gross Description u0astSOwUOOjm8ydATTf bGF uZzEwMzNcZnRuYmpcdWMxIH tccnRmMVxlcGljMTExMDVcY F3dyYanpXt0zWpwGTRhkgI3 gQYxGYvrb4ziJIZ7m4mdujn wQVXjXRszXj9anSYebNvxIz JiDIEkQOv6oL61HKCjrN0ov SZuXTfoyiTfRPWqW4XsNB2w AZdpdVEsEER5tUhcQPAoviv hAsP1ODfwOYUlydheNBk4DV toPNMjhVZ2GHWoiOLzO1CmB FMrZN0keou8XOI3CKklWXCl CbB1LZQufOEkUPJsuIwoVAl cg209ETG3NcLfEFSrwyQitH dviS7bSrRfDAATaXLxn9KcK 4paOQ5zxGLznfFqCBw8GTVn jY3rc38cXWXjo2Fhilw5UHj cDeSgRMXsM77ffCFkobJeQR dpdGggdGhlIHBhdGllbnQnc cTlYK7gXKJeAEPmC5Hze6Jj d94fnjZlQwJtYdQpgAIqCTS dmouhTbEzCBjlYzFpRnp4AI IgVGhlIHNwZWNpbWVuIGlzI QRds4mfmoU9IOJdDwjhm8Ck zLYyRAUcakUznKPcIU6cATJ cmcPfq8LqQK3vKEEdlcKmUh BxL99duuEmAU5gYFMnwy3ap Q4cEIDbNjCvwXksi5TnPMHm so9tYIXgWbI8pBL9ntWxUcP qT62nlS2pK1GlQXScg8UlQH rzJH8vfP0pMbBgDZRyWJMky TAzEZXtoeAOYZZcXWBvGW8l bPr0UIbfOgwWXEzeBkPyUXU 1WQOxxx66CQT7DrQlz1L3ZN AiVtPgULKcVF1ilUilNVOvM P4xDJQvO3mjnY3tjtx0IgBa OVZjJpD6KXPpfnU8Egw6NCO rRRela1tzi0LrTZCzMOf6iW lfZaSpJUYmy6asezXcAlItB DWtANNuUYHwfJNbE627f6aq w9wknkZfiLS2ZDSuQFU6EAc esnRfigW2LHpbrSDpCdM5TM ajsdBaONwxemEntwOgXgc9L QTlB849FBP1hHjvk6hrRNG2 VWGgOEBvJrDyRg4jvXAsS99 7MJOkXTOUUSYkbWw0FNOixi RyuuXhuPSEp729Y443r4xeP UFoqrHtoWwKyedly9ejO802 XHBhcGVydzEyMjQwXHBhcGV jjSH5SQWaVW8sxbqgCGynAF zgXLTkbzB2UEGaoBPpS2MlH SFtIW2clmboVWQ6ICiuWHEe FWG4FfEbYPCjn2Keklj5XsH pzh2pxc99MGL8u5BvsOofJQ P7OGN5CbNxOx2ajMVrZZAhR Y3kBiYmbRJxWJKjox92wGqg RCjgbrRvrE4kLnVqWZNrrOF hABUrJW9paJZmZDJouZ7dut xjXHBnYnJkcmhlYWRccGdic lDlTp4gsPboAFJ8UQxnH2sa nR0qYrK3SQsxS0hffJ1aRCw 7QXlsoJK5JGGyaJ9dRF0dit gbj9xaPZbdIKmqXTHikeZ8g uV7CZJkxUAcU1MgcU8bZEQe DF5uanwog1rbXVV4FJiwVNZ uPCR9SjCoRMZmz0Pfroq0Dk Lrp4JfbHEtYOkbK09tr804J NXxwdYfD1ftfEBypjnphCWy rrqwYFpmvnR5QUEtWHUtPUj uXGYxXGZzMjJcbGFuZzEwMz NcaGljaFxmMVxkYmNoXGYxX KohF5oaAeDhJoGuSyZQbn1q u0GaAVUfnfQ7rVjeMJLbj1Y nd4PdLrCGQBCpG9KqIW9zdU YxRTGibp18 [facility] Microscopic Description p5dtwPZcZQIpfAEu ZjIyMDA qGAZrt9rxLCSaiBLxTmVjWg NcZnRuYmpcdWMxXGRlZmYwe 5jfo283sCVgt4neBFJxViT8 yMInSBVrwRElA024ACReUAu ys0sut8HdKSBrwPKff6T9CK WDfpdbzAj5uHeeO83xy9Y0A yhdY5yqVSFjGBSuE4KlVA8l BGOsFym0UII7JKH2DANlJVC sY6YbOG9gYTLrsGEgKEt3i1 pdlLfzPLMpPIX9e4uvFRtan eDmRE6diz5cuXe0k5vyzkEg MDUtDMTxkDGGKCClO1MdzQb lXu6gdBi7aWvfNnkdGRM0Sa j0DS6zpa55tjp7jWnyRVEfe iczPrV3HXteTWVpcydxKMe9 IVifZWTaqRS7VDZrnXAaI1I pIALmEM2fekp9AUF4ATweYS HyVlC3KXGboJRfYNCpuRjaE Nfap174VZO7PfWpPU4tX8Ix g1T8sX6ksREuLADjbVIrPxN xSRAaby9ghOOxOFacw8DqKC L3cbM0tDXnzZOyFBXcGZ67L lrqc5KqEkrmATS1FFAsjqNp s7Bzs5hbSpHbsoRoU7gmF5C yZHJoZWFkXHBnYnJkcmZvb3 Wef8JvfEMjlBn7k1enLBYwI JYnuJlat1wcWSJ1VROvT2Y9 aAXvz9ckNLivXPOszTB1dlW 4LBUodSFzD9LzyH5fZWBuSB 9ecyb4f2mcKOE3TGiiZVOnB fD7hxF2YNKtfNDmECHndKjx ICieg435XBN5IhYtLIAth3S cX1HlwOnpF48fjLpeO70pNB QesNottU7mzKwxxT2gIjAlW nMyNFxxbFxwbGFpblxmMVxm jsCpECcoylicIOBmAQpgF0o vDpQxHERoxRsbHPsnj6JrRP EcMEDfYqBcKQXfuQXai1Cbh 4LuVkPezAFpuS1hxOmfbrH7 ELCvjTReWt2bsMVtPvMprTL yfQ== [facility] Pathologic Diagnosis v9bqyGMpBODqwCDeYZL wNVx uviStYLTwvNGkY8PwncjtCP inAM3kHE2leZifzZTsrXWaF MGlXqZap3oxf566tZPox2aa IAUSbmmjnTh7y0ldTKBIyB8 su6b2dK63QCJdoW4xjCCdVF jgjmIeFXimwmNosyDzPxh9X TR2pHyrLdohaMU2oAXyeZU1 CMqfw6YvqAsbcFdfLWTdQPU mTRR3X2fhwCS6tJCdcShmoG LnKO8rs0pasSY4crEfBBV5o CllgUG3uEpfcvinq8btjAI7 dHI8SYulbVI1KPosVaUaK3v cBPOpbO6oL62fQ6ntBDWpjN qqHVzaIYMwvWG2TWW6MESqw 1xsZXZlbHRleHRcJzAxXCdi Ebz8x9swOSRgbG05rPLhnrO 7fVxmMVxmczIwXGxpMzYwXG ZpMTgwfXtcbGlzdGxldmVsX MrancUxfeCdBnHeoIQ5RNhh GjViOhNavNF3JZbrReZleVG 5CRjvpBZhgYW8BCqmcSN4GU h6LIs2PZwjVFauFvs6tJibt OO7WFkorC3tFBQxD45kYaTw OnQeFR68SRohj0LvAGLrfMy aWKJwfQ2fUfCzPKohnuEwil ZjbjIzXGxldmVsamMwXGxld iIxi4SswsUlxAJ7VLpqboWh lTT9qJgrFFYyB9R0C651MDj bpcFzfaRcNrPmgqv7ASCqNW JlFnF2b6rcrOV8rCY3CCljv HE3BIhjDeIrX4flGXWzyK4z M51dW6yhZKTjnWtlKVxhEDD hkGR9XRH9GVPjo2gxIMVmzY MurSFmEmEiBAvbQiq9h3zoY BKmhG47mHLldpS5gAwsJArs czIwfXtcbGlzdGxldmVsXGx lhjUsaqVtRcIouNO5NKuoAx GoMzBduQC3SCraPgFilGH3T EmpgOLyoMJ3RVqkqNX1OKf2 XHg1DQrfNRxgZwx5uFqswHF 1ERgtyZ7hLZAnS75gQzYsAl VkQY52YJebo4FtWWYspQanZ LMbjN3uHfVzZJsbfwGuafQs bjIzXGxldmVsamMwXGxldmV rw3TfjbJeaFM5SKwulhKwyK X9cQlhMYYtA0Z0L525ITmoc lIhaiWkCvKpcka3DMCuKSAu PpJ9s3qlnMS0rUB4MVaqlEE 7KSprWoBhO2yaCGAynA6bF0 6pX4qbZNRjoPldTPnsBPLmz BQ6ZXY5PEDpm7tnAOYfuXLk fWZxAlSgORrwTyl3a9uyQQN iuA76bVFndhL1zBoxUEylvc IwfXtcbGlzdGxldmVsXGxld aCqdhRiQkGceBS5PLvvNrXe IgPjtIT7HNrjOmOrbTK8WKr pbYHhzOY9PJdvvSR7VOd5MS k6UGgdAXvxGgm5aUxrvMN6Z FtviY3aCDXsM86dSkHzJmCj VM73YZgee1JrEEFeoKpyPFJ glK0fBaPaCQmzfwHjbvXuwr IzXGxldmVsamMwXGxldmVsc 9TiknBkqLJ6UYitloIraUV5 mSrzLWKyY2Y2B727QNzldgR hulMpBvMursm8RNUuLWHwKl H2uE83QJfvlZsnnA03IKUfj MIatHQpeFW9QTgirVxwqW57 IVAvuSFoWPjos3NeAFQzMzM 8RjEeSIWfyJndyY95KOKheO CbH696gdEzKWagQR25VGEmp GVydzEyMjQwXHBhcGVyaDE1 HBSjAH9uzndvMPznNBroFZW pgyB7HRMnbFRvX7ZwWOZuKF 5ruycbAPU6QBdlCBIgYKC9S fEwQGTnm7Eaaue0ClNkmKXw WLdguZNzxsghUKHdRqMqU9R tWSXcBNW0o87kK4ypXQMyj1 BzeTpccGFyXGxpMzYwXGZpM SlaZTptooC3UBcdwbUliUp4 dEYkyBkihS1aRbrvtoHaDKF pYNRQa8EarJTuhw9cxQ2yOL EkszVJiaDFSWutR68iRGE4E WIzmNqem6IdXWyrWI31aXEb ZWRccGFyfQ== [facility] Interpretation Performed at: d5nvtWMnNVSyeAOnZaXbUFB qXPIdm9glZTTvwJNgUfVjVz NcZnRuYmpcdWMxXGRlZmYwe 0wzy884dQEqx8umCHBaSlQ1 wAApUHVmjPArN736FFPqOEt xr2jqr7SqSDIunUFhk1N7SU RYrdlouSm9cYomM30dx2Y8K lvtD4aoKCKbMWUmN4RfSI3o IRCoAcr1DHS4IPC9UAObXZB mK8ZiDY5hGGMqmFCkUAx2q1 ivbBmqSUXiCGX1d5kgARyjj iLgEN7hcf2nzYq6p8zsszRc WFXjGSHehSUBTRYsL7AkgAc lEd0axRo8fGosShgfLRC3Fh k8AR3ams99gzd7wTueTQJrv fwdKnM0SZblBXNxnvkvADv8 NSctVQBkvDE7WHInmFHjJ5C qNWZpJY0zcay9WSU7LIuxFF JoBnZ2BHXdkHMmJIEccTabW Bcws719OVV2FmOrVY0zG8Eg t1P0tW8nkQTkUULgkNSeHrZ bRZEhuo6ieEAdTKzyv6NjOO Z9xfC9xOMzwUBiABSyFY57N olno9TkUxciRXR0WBYqyfMg c1Tse0ofOzMxssVxO0hbM7G yZHJoZWFkXHBnYnJkcmZvb3 Qxk5PdpVWysOr3j5tmBNTlV ODvzHcdr5vuNET8BXVcD2D5 uRYkw1hzPRztYKOvtSV1nqM 1OVLujMHcJ2WslA6nDKOlPB 2zzpb6u4urDEZ7OEgyACOeM nH0ibP1NLIwqUDrJNYevYvm YAwut784QNL7QbObYIChx0S jJ8YrlOasM76irEpoG05aIG HeqMcoaN1bnGqokK6hDwSkQ nMyNFxwYXJkXHBsYWluXGYx XGZzMjJcbGFuZzEwMzNcaGl jaFxmMVxkYmNoXGYxXGxvY2 kbShEbFiAtJjJWO9TlY6PKW iELRO2BYEkPHNgiZ8PZHLWT HIDRBD9GH3GMMItUTi9YUOS SIrkqkPCuGYAzLQCJRZN5TU UepGvqMAWjJTVoilWKg7c0j VF6aonwF1aaptE6EjJtWEyw YXJ9 [facility] CBC,PLATELETSon 08-11-2024 Erythrocyte distribution width (RBC) [Ratio] 13.7 % 10.8 - 14.9 % [facility] Hematocrit (Bld) [Volume fraction] 43.2 % 34.9 - 44.3 % [facility] Hemoglobin (Bld) [Mass/Vol] 14 g/dL 11.4 - 15.2 g/dL [facility] Interpretation and review of laboratory results Abnormal [facility] MCH (RBC) [Entitic mass] 29.9 pg 25.9 - 33.9 pg [facility] MCHC (RBC) [Mass/Vol] 32.4 g/dL 31.4 - 35.9 g/dL [facility] MCV (RBC) [Entitic vol] 92.1 fL 79.6 - 97.7 fL [facility] Platelet mean volume (Bld) [Entitic vol] 11.5 fL 8.5 - 12.2 fL [facility] Platelets (Bld) [#/Vol] 240 10*3/uL 150 - 393 K/uL [facility] RBC (Bld) [#/Vol] 4.69 10*6/uL [facility] WBC (Bld) [#/Vol] 11.76 10*3/uL High 3.99 - 11.19 K/uL [facility] Hematocrit (Bld) [Volume fraction] 43.2 % Normal 34.9-44.3 [facility] Comment on above: Performed By: #### T YPEC #### [facility] (DEFAULT) [address] [place] [address] 32587 Hemoglobin (Bld) [Mass/Vol] 14.0 g/dL Normal 11.4-15.2 [facility] Comment on above: Performed By: #### T YPEC #### [facility] (DEFAULT) [address] [place] [address] 16365 MCV (RBC) [Entitic vol] 92.1 fL Normal 79.6-97.7 O [facility] Comment on above: Performed By: #### T YPEC #### [facility] (DEFAULT) [address] [place] [address] 32793 Mean Cell Hgb 29.9 pg Normal 25.9-33.9 [facility] Comment on above: Performed By: #### T YPEC #### [facility] (DEFAULT) [address] [place] [address] 19974 Mean Cell Hgb Conc 32.4 g/dL Normal 31.4-35.9 [facility] Comment on above: Performed By: #### T YPEC #### [facility] (DEFAULT) [address] [place] [address] 45292 Platelet mean volume (Bld) [Entitic vol] 11.5 fL Normal 8.5-12.2 [facility] Comment on above: Performed By: #### T YPEC #### [facility] (DEFAULT) [address] [place] [address] 34410 Platelets (Bld) [#/Vol] 240 10*3/uL Normal 150-393 [facility] Comment on above: Performed By: #### T YPEC #### [facility] (DEFAULT) [address] [place] [address] 38120 RBC (Bld) [#/Vol] 4.69 10*6/uL Normal 3.91-5.04 [facility] Comment on above: Performed By: #### T YPEC #### [facility] (DEFAULT) [address] [place] [address] 82166 RBC Distribution 13.7 % Normal 10.8-14.9 [facility] Comment on above: Performed By: #### T YPEC #### [facility] (DEFAULT) [address] [place] [address] 98739 WBC (Bld) [#/Vol] 11.76 10*3/uL High 3.99-11.19 [facility] Comment on above: Performed By: #### T YPEC #### [facility] (DEFAULT) [address] [place] [address] 02693 CHEM 7 (LYTES,BUN,CREA,GLUC) on 08-11-2024 Anion gap [Moles/Vol] 14 mmol/L 7 - 17 mmol/L [facility] Chloride [Moles/Vol] 103 mmol/L 98 - 10 8 mmol/L [facility] CO2 [Moles/Vol] 26 mmol/L 21 - 31 mmol/L [facility] Creatinine [Mass/Vol] 1.32 mg/dL High 0.50 - 1.20 mg/dL [facility] eGFR, CKD-EPI, Female 41 Low - PINF [facility] Glucose [Mass/Vol] 127 mg/dL 70 - 179 mg/dL [facility] Interpretation and review of laboratory results Abnormal [facility] Osmolality Calc [Osmolality] 306 High [facility] Potassium [Moles/Vol] 4.6 mmol/L 3.5 - 5.0 mmol/L [facility] Sodium [Moles/Vol] 138 mmol/L 135 - 145 mmol/L [facility] Urea nitrogen [Mass/Vol] 53 mg/dL High 7 - 25 mg/dL [facility] Urea nitrogen/Creatinine [Mass ratio] 40 mg/mg [facility] Anion gap [Moles/Vol] 14 mmol/L Normal 7-17 [facility] Comment on above: Performed By: #### [facility] #### [facility] (DEFAULT) [address] [place] [address] 11473 Chloride [Moles/Vol] 103 mmol/L Normal 98-108 [facility] Comment on above: Performed By: #### H EMO #### [facility] (DEFAULT) [address] [place] [address] 74304 CO2 [Moles/Vol] 26 mmol/L Normal 21-31 [facility] Comment on above: Performed By: #### H [facility] #### [facility] (DEFAULT) [address] [address] Creatinine [Mass/Vol] 1.32 mg/dL High 0.50-1.20 [facility] Comment on above: Performed By: #### H [facility] #### [facility] (DEFAULT) [address] [place] [address] 82641 GFR/1.73 sq M.predicted among non-blacks MDRD (S/P/Bld) [Vol rate/Area] 41 mL/min/{1.73_m2} Low >=60 [facility] Comment on above: Result Comment: Repo rted eGFR is based on the CKD-EPI 2020 equation using creatinine, age, and sex. Performed By: #### H [facility] #### [facility] (DEFAULT) [address] [place] [address] 56882 Glucose [Mass/Vol] 127 mg/dL Normal Nonfastin -179 mg/dL; Fastin-99 [facility] Comment on above: Performed By: #### H EMOGC #### [facility] (DEFAULT) [address] [address] Osmolality [Osmolality] 306 mosm/kg High 278-305 [facility] Comment on above: Performed By: #### H EMOGC #### [facility] (DEFAULT) [address] [address] Potassium [Moles/Vol] 4.6 mmol/L Normal 3.5-5.0 [facility] Comment on above: Performed By: #### H EMO #### [facility] (DEFAULT) [address] [place] [address] Sodium [Moles/Vol] 138 mmol/L Normal 135-145 [facility] Comment on above: Performed By: #### H EMO #### [facility] [address] [place] [address] Urea nitrogen [Mass/Vol] 53 mg/dL High 7-25 [facility] Comment on above: Performed By: #### H EMO #### [facility] (DEFAULT) [address] [place] [address] Urea nitrogen/Creatinine [Mass ratio] 40 mg/mg Normal [facility] Comment on above: Performed By: #### H EMO #### [facility] (DEFAULT) [address] [place] [address] GLUCOSE POCon 08-11-2024 Glucose [Mass/Vol] 213 mg/dL High 70 - 179 mg/dL [facility] Interpretation and review of laboratory results Abnormal [facility] POC Sample Type CAPBL [facility] Glucose [Mass/Vol] 255 mg/dL High 70 - 179 mg/dL [facility] Interpretation and review of laboratory results Abnormal [facility] POC Sample Type CAPBL [facility] Glucose [Mass/Vol] 190 mg/dL High 70 - 179 mg/dL [facility] Interpretation and review of laboratory results Abnormal [facility] POC Sample Type [facility] Glucose [Mass/Vol] 205 mg/dL High 70 - 179 mg/dL [facility] Interpretation and review of laboratory results Abnormal [facility] POC Sample Type CAPBL [facility] MAGNESIUMon 08-11-2024 Interpretation and review of laboratory results Normal [facility] Magnesium [Mass/Vol] 1.9 mg/dL 1.6 - 2 .6 mg/dL [facility] Magnesium [Mass/Vol] 1.9 mg/dL Normal 1.6-2.6 [facility] Comment on above: Performed By: #### M WENDY CHM7 #### [facility] (DEFAULT) [address] [address] No Panel Informationon 08-11 [facility] BLOOD CULTUREon 08-10-2024 Bacteria identified Cx Nom (Unsp spec) NO GROWTH DAY 5 OF 5 Normal [facility] Comment on above: Order Comment: 2 [...] bottle. Performed By: #### T YPEC #### [facility] (DEFAULT) [address] [place] [address] Bacteria identified Cx Nom (Unsp spec) NO GROWTH DAY 5 OF 5 Normal [facility] Comment on above: Order Comment: 2 [...] bottle. Performed By: #### B LDCULT #### [facility] (DEFAULT) [address] [place] [address]25 CBC,PLATELETSon 08-10-2024 Erythrocyte distribution width (RBC) [Ratio] 13.3 % 10.8 - 14.9 % [facility] Hematocrit (Bld) [Volume fraction] 45.1 % High 34.9 - 44.3 % [facility] Hemoglobin (Bld) [Mass/Vol] 14.1 g/dL 11.4 - 15.2 g/dL [facility] Interpretation and review of laboratory results Abnormal [facility] MCH (RBC) [Entitic mass] 29.1 pg 25.9 - 33.9 pg [facility] MCHC (RBC) [Mass/Vol] 31.3 g/dL Low 31.4 - 35.9 g/dL [facility] MCV (RBC) [Entitic vol] 93 fL 79.6 - 97.7 fL [facility] Platelet mean volume (Bld) [Entitic vol] 11.4 fL 8.5 - 12.2 fL [facility] Platelets (Bld) [#/Vol] 216 10*3/uL 150 - 393 K/uL [facility] RBC (Bld) [#/Vol] 4.85 10*6/uL [facility] WBC (Bld) [#/Vol] 13.78 10*3/uL High 3.99 - 11.19 K/uL [facility] Hematocrit (Bld) [Volume fraction] 45.1 % High 34.9-44.3 [facility] Comment on above: Performed By: #### [facility] [place] #### [facility] (DEFAULT) [address] [address] Hemoglobin (Bld) [Mass/Vol] 14.1 g/dL Normal 11.4-15.2 [facility] Comment on above: Performed By: #### [facility] [place] #### [facility] (DEFAULT) [address] [address] MCV (RBC) [Entitic vol] 93.0 fL Normal 79.6-97.7 O [facility] Comment on above: Performed By: #### [facility] [place] #### [facility] (DEFAULT) [address] [address] Mean Cell Hgb 29.1 pg Normal 25.9-33.9 [facility] Comment on above: Performed By: #### H EMOGC #### U [facility] (DEFAULT) [address] [address] Mean Cell Hgb Conc 31.3 g/dL Low 31.4-35.9 [facility] Comment on above: Performed By: #### H EMOGC #### U [facility] (DEFAULT) [address] [address] Platelet mean volume (Bld) [Entitic vol] 11.4 fL Normal 8.5-12.2 [facility] Comment on above: Performed By: #### H EMOGC #### U [facility] (DEFAULT) [address] [address] Platelets (Bld) [#/Vol] 216 10*3/uL Normal 150-393 [facility] Comment on above: Performed By: #### H EMOGC #### [facility] (DEFAULT) [address] [address] RBC (Bld) [#/Vol] 4.85 10*6/uL Normal 3.91-5.04 [facility] Comment on above: Performed By: #### H EMOGC #### [facility] (DEFAULT) [address] [address] RBC Distribution 13.3 % Normal 10.8-14.9 [facility] Comment on above: Performed By: #### H EMOGC #### U [facility] (DEFAULT) [address] [address] WBC (Bld) [#/Vol] 13.78 10*3/uL High 3.99-11.19 [facility] Comment on above: Performed By: #### H EMOGC #### U [facility] (DEFAULT) [address] [address] CHEM 7 (LYTES,BUN,CREA,GLUC) on 08-10-2024 Anion gap [Moles/Vol] 16 mmol/L 7 - 17 mmol/L [facility] Chloride [Moles/Vol] 103 mmol/L 98 - 10 8 mmol/L [facility] CO2 [Moles/Vol] 24 mmol/L 21 - 31 mmol/L [facility] Creatinine [Mass/Vol] 1.36 mg/dL High 0.50 - 1.20 mg/dL [facility] eGFR, CKD-EPI, Female 40 Low - PINF [facility] Glucose [Mass/Vol] 186 mg/dL High 70 - 179 mg/dL [facility] Interpretation and review of laboratory results Abnormal [facility] Osmolality Calc [Osmolality] 308 High [facility] Potassium [Moles/Vol] 4.9 mmol/L 3.5 - 5.0 mmol/L [facility] Sodium [Moles/Vol] 138 mmol/L 135 - 145 mmol/L [facility] Urea nitrogen [Mass/Vol] 47 mg/dL High 7 - 25 mg/dL [facility] Urea nitrogen/Creatinine [Mass ratio] 35 mg/mg [facility] Anion gap [Moles/Vol] 16 mmol/L Normal 7-17 [facility] Comment on above: Performed By: #### Jaiden NGUYEN CHM7 ####[facility] (DEFAULT)[address] [place] [address] Chloride [Moles/Vol] 103 mmol/L Normal 98-108 [facility] Comment on above: Performed By: #### HEYDI PALACIOS7 ####[facility] (DEFAULT)[address] [place] [address] CO2 [Moles/Vol] 24 mmol/L Normal 21-31 [facility] Comment on above: Performed By: #### Jaiden NGUYEN CHM7 ####[facility] (DEFAULT)[address] [place] [address] Creatinine [Mass/Vol] 1.36 mg/dL High 0.50-1.20 [facility] Comment on above: Performed By: #### CAMERON PALACIOS ####[facility] (DEFAULT)[address] [place] [address] GFR/1.73 sq M.predicted among non-blacks MDRD (S/P/Bld) [Vol rate/Area] 40 mL/min/{1.73_m2} Low >=60 [facility] Comment on above: Result Comment: Repo rted eGFR is based on the CKD-EPI 2020 equation using creatinine, age, and sex. Performed By: #### CAMERON PALACIOS ####[facility] (DEFAULT)[address] [place] [address] Glucose [Mass/Vol] 186 mg/dL High Nonfastin -179 mg/dL; Fastin-99 [facility] Comment on above: Performed By: #### CAMERON PALACIOS ####[facility] (DEFAULT)[address] [place] [address] Osmolality [Osmolality] 308 mosm/kg High 278-305 [facility] Comment on above: Performed By: #### CAMERON PALACIOS ####[facility] (DEFAULT)[address] [place] [address] Potassium [Moles/Vol] 4.9 mmol/L Normal 3.5-5.0 [facility] Comment on above: Performed By: #### HEYDI PALACIOS7 ####[facility] (DEFAULT)[address] [place] [address] Sodium [Moles/Vol] 138 mmol/L Normal 135-145 [facility] Comment on above: Performed By: #### HEYDI PALACIOS7 ####[facility] (DEFAULT)[address] [address] [place] [address] Urea nitrogen [Mass/Vol] 47 mg/dL High 7-25 [facility] Comment on above: Performed By: #### HEYDI PALACIOS7 ####[facility] (DEFAULT)[address] [place] [address] Urea nitrogen/Creatinine [Mass ratio] 35 mg/mg Normal [facility] Comment on above: Performed By: #### HEYDI PALACIOS7 ####[facility] (DEFAULT)[address] [place] [address] GLUCOSE POCon 08-10-2024 Glucose [Mass/Vol] 144 mg/dL 70 - 179 mg/dL [facility] POC Sample Type [facility] Glucose [Mass/Vol] 177 mg/dL 70 - 179 mg/dL [facility] POC Sample Type [facility] Glucose [Mass/Vol] 180 mg/dL High 70 - 179 mg/dL [facility] Interpretation and review of laboratory results Abnormal [facility] POC Sample Type CAPBL [facility] Glucose [Mass/Vol] 193 mg/dL High 70 - 179 mg/dL [facility] Interpretation and review of laboratory results Abnormal [facility] POC Sample Type [facility]BL [facility] Glucose [Mass/Vol] 200 mg/dL High 70 - 179 mg/dL [facility] Interpretation and review of laboratory results Abnormal [facility] POC Sample Type [facility] Glucose [Mass/Vol] 198 mg/dL High 70 - 179 mg/dL [facility] Interpretation and review of laboratory results Abnormal [facility] POC Sample Type [facility] MAGNESIUMon 08-10-2024 Interpretation and review of laboratory results Normal [facility] Magnesium [Mass/Vol] 1.8 mg/dL 1.6 - 2 .6 mg/dL [facility] Magnesium [Mass/Vol] 1.8 mg/dL Normal 1.6-2.6 [facility] Comment on above: Performed By: #### M HILARIA NGUYENM7 ####[facility] (DEFAULT)[address] [place] [address] No Panel Informationon 08-10 [facility] URINE CULTUREOrdered By: Franklin Carcamo on 08-10-2024 Bacteria identified Cx Nom (Unsp spec) Growth [facility] Bacteria identified Cx Nom (Unsp spec) KLEBSIELLA PNEUMONIAE Abnormal [facility] Interpretation and review of laboratory results Abnormal [facility] CBC,PLATELETSon 08-09-2024 Erythrocyte distribution width (RBC) [Ratio] 13.5 % 10.8 - 14.9 % [facility] Hematocrit (Bld) [Volume fraction] 44.4 % High 34.9 - 44.3 % [facility] Hemoglobin (Bld) [Mass/Vol] 14.1 g/dL 11.4 - 15.2 g/dL [facility] Interpretation and review of laboratory results Abnormal [facility] MCH (RBC) [Entitic mass] 29.4 pg 25.9 - 33.9 pg [facility] MCHC (RBC) [Mass/Vol] 31.8 g/dL 31.4 - 35.9 g/dL [facility] MCV (RBC) [Entitic vol] 92.7 fL 79.6 - 97.7 fL [facility] Platelet mean volume (Bld) [Entitic vol] 11.5 fL 8.5 - 12.2 fL [facility] Platelets (Bld) [#/Vol] 226 10*3/uL 150 - 393 K/uL [facility] RBC (Bld) [#/Vol] 4.79 10*6/uL [facility] WBC (Bld) [#/Vol] 12.37 10*3/uL High 3.99 - 11.19 K/uL [facility] Hematocrit (Bld) [Volume fraction] 44.4 % High 34.9-44.3 [facility] Comment on above: Performed By: #### H EMOGC #### [facility] (DEFAULT) [address] [place] [address] Hemoglobin (Bld) [Mass/Vol] 14.1 g/dL Normal 11.4-15.2 [facility] Comment on above: Performed By: #### H EMOGC #### [facility] (DEFAULT) [address] [place] [address] MCV (RBC) [Entitic vol] 92.7 fL Normal 79.6-97.7 O [facility] Comment on above: Performed By: #### H EMOGC #### [facility] (DEFAULT) [address] [place] [address] Mean Cell Hgb 29.4 pg Normal 25.9-33.9 [facility] Comment on above: Performed By: #### H EMOGC #### [facility] (DEFAULT) [address] [place] [address] Mean Cell Hgb Conc 31.8 g/dL Normal 31.4-35.9 [facility] Comment on above: Performed By: #### H EMOGC #### [facility] (DEFAULT) [address] [place] [address] Platelet mean volume (Bld) [Entitic vol] 11.5 fL Normal 8.5-12.2 [facility] Comment on above: Performed By: #### H EMOGC #### [facility] (DEFAULT) [address] [place] [address] Platelets (Bld) [#/Vol] 226 10*3/uL Normal 150-393 [facility] Comment on above: Performed By: #### H EMOGC #### [facility] (DEFAULT) [address] [place] [address] RBC (Bld) [#/Vol] 4.79 10*6/uL Normal 3.91-5.04 [facility] Comment on above: Performed By: #### [facility] #### [facility] (DEFAULT) [address] [place] [address] RBC Distribution 13.5 % Normal 10.8-14.9 [facility] Comment on above: Performed By: #### H [facility] #### [facility] (DEFAULT) [address] [place] [address] WBC (Bld) [#/Vol] 12.37 10*3/uL High 3.99-11.19 [facility] Comment on above: Performed By: #### H [facility] #### [facility] (DEFAULT) [address] [place] [address] CHEM 7 (LYTES,BUN,CREA,GLUC) on 08-09-2024 Anion gap [Moles/Vol] 14 mmol/L 7 - 17 mmol/L [facility] Chloride [Moles/Vol] 103 mmol/L 98 - 10 8 mmol/L [facility] CO2 [Moles/Vol] 26 mmol/L 21 - 31 mmol/L [facility] Creatinine [Mass/Vol] 1.35 mg/dL High 0.50 - 1.20 mg/dL [facility] eGFR, CKD-EPI, Female 40 Low - PINF [facility] Glucose [Mass/Vol] 182 mg/dL High 70 - 179 mg/dL [facility] Interpretation and review of laboratory results Abnormal [facility] Osmolality Calc [Osmolality] 305 [facility] Potassium [Moles/Vol] 4.9 mmol/L 3.5 - 5.0 mmol/L [facility] Sodium [Moles/Vol] 138 mmol/L 135 - 145 mmol/L [facility] Urea nitrogen [Mass/Vol] 38 mg/dL High 7 - 25 mg/dL [facility] Urea nitrogen/Creatinine [Mass ratio] 28 mg/mg [facility] Anion gap [Moles/Vol] 14 mmol/L Normal 7-17 [facility] Comment on above: Performed By: #### H [facility] #### [facility] (DEFAULT) [address] [address] Chloride [Moles/Vol] 103 mmol/L Normal 98-108 [facility] Comment on above: Performed By: #### H EMO #### U [facility] (DEFAULT) [address] [place] [address] CO2 [Moles/Vol] 26 mmol/L Normal 21-31 [facility] Comment on above: Performed By: #### H [facility] #### [facility] (DEFAULT) [address] [address] Creatinine [Mass/Vol] 1.35 mg/dL High 0.50-1.20 [facility] Comment on above: Performed By: #### H [facility] #### [facility] (DEFAULT) [address] [place] [address] GFR/1.73 sq M.predicted among non-blacks MDRD (S/P/Bld) [Vol rate/Area] 40 mL/min/{1.73_m2} Low >=60 [facility] Comment on above: Result Comment: Repo rted eGFR is based on the CKD-EPI 2020 equation using creatinine, age, and sex. Performed By: #### H [facility] #### [facility] (DEFAULT) [address] [place] [address] Glucose [Mass/Vol] 182 mg/dL High Nonfastin -179 mg/dL; Fastin-99 [facility] Comment on above: Performed By: #### H EMOGC #### U [facility] (DEFAULT) [address] [address] Osmolality [Osmolality] 305 mosm/kg Normal 278-305 [facility] Comment on above: Performed By: #### H EMOGC #### [facility] (DEFAULT) [address] [address] Potassium [Moles/Vol] 4.9 mmol/L Normal 3.5-5.0 [facility] Comment on above: Performed By: #### H EMO #### [facility] (DEFAULT) [address] [place] [address] Sodium [Moles/Vol] 138 mmol/L Normal 135-145 [facility] Comment on above: Performed By: #### H EMO #### [facility] (DEFAULT) [address] [place] [address] Urea nitrogen [Mass/Vol] 38 mg/dL High 7-25 [facility] Comment on above: Performed By: #### H EMO #### [facility] (DEFAULT) [address] [place] [address] Urea nitrogen/Creatinine [Mass ratio] 28 mg/mg Normal [facility] Comment on above: Performed By: #### H EMO #### [facility] (DEFAULT) [address] [place] [address] EXTRA MICROon 08-09-2024 [facility] GLUCOSE POCon 08-09-2024 Glucose [Mass/Vol] 186 mg/dL High 70 - 179 mg/dL [facility] Interpretation and review of laboratory results Abnormal [facility] POC Sample Type [facility] Glucose [Mass/Vol] 255 mg/dL High 70 - 179 mg/dL [facility] Interpretation and review of laboratory results Abnormal [facility] POC Sample Type [facility] Glucose [Mass/Vol] 235 mg/dL High 70 - 179 mg/dL [facility] Interpretation and review of laboratory results Abnormal [facility] POC Sample Type CAPBL [facility] Glucose [Mass/Vol] 167 mg/dL 70 - 179 mg/dL [facility] POC Sample Type CAPBL [facility] INTERVENTIONAL UPPER ENDOSCO PYon 08-09-2024 Body surface area Derived from formula 1.9 m2 [facility] LAB, [facility] Radiology Study observation (narrative) [facility] MAGNESIUMon 08-09-2024 Interpretation and review of laboratory results Normal [facility] Magnesium [Mass/Vol] 1.8 mg/dL 1.6 - 2 .6 mg/dL [facility] Magnesium [Mass/Vol] 1.8 mg/dL Normal 1.6-2.6 [facility] Comment on above: Performed By: #### H EMO #### [facility] (DEFAULT) [address] [address] No Panel Informationon 08-09 [facility] PT,INR,PTTon 08-09-2024 aPTT Coag (PPP) [Time] 38.4 s High [facility] INR Coag (Bld) [Relative time] 1 {INR} 0.9 - 1.1 [facility] Interpretation and review of laboratory results Abnormal [facility] PT Coag (PPP) [Time] 13 s [facility] aPTT Coag (Bld) [Time] 38.4 s High 24.0-34.3 [facility] Comment on above: Performed By: #### B LDCULT #### [facility] (DEFAULT) [address] [place] [address] INR Coag (PPP) [Relative time] 1.0 {INR} Normal 0.9-1.1 [facility] Comment on above: Performed By: #### B LDCULT #### [facility] (DEFAULT) [address] [place] [address] PT Coag (PPP) [Time] 13.0 s Normal 11.9-14.2 [facility] Comment on above: Performed By: #### B LDCULT #### [facility] (DEFAULT) [address] [place] [address] SURG PATH REQUESTon 08-10-19 Case Report [facility] Comment on above: Result Comment: Surg ical Pathology Report Case: [id number] Authorizing Provider: Judson Keith DO Collected: 08/09/2024 10:07 AM Ordering Location: [facility] Received: 08/09/2024 12:13 PM Pathologist: Renae Glez MD Specimen: STOMACH, gastric, r/o HP Performed By: #### S URGP #### [facility] (DEFAULT) [address] [address] Clinical History R/O HP. Associated Diagnosis: None. Medical History: No medical history provided. [facility] Comment on above: Performed By: #### S URGP #### [facility] (DEFAULT) [address] [place] [address] Gross Description [facility] Comment on above: Result Comment: The specimen is received in one properly labeled container with the patient's name and accession number. A. The specimen is designated "gastric, r/o hp" and consists of five fragments of jackson-pink soft tissue, from 0.2 up to 0.6 cm in greatest dimension. TE 1 Lab Use Only: JobID [id number] Grosser for this case was: Sunshine Hidalgo Performed By: #### S URGP #### [facility] (DEFAULT) [address] [place] [address] Microscopic Description A microscopic examination was performed. [facility] Comment on above: Performed By: #### S URGP #### [facility] (DEFAULT) [address] [place] [address] Pathologic Diagnosis [facility] Comment on above: Result Comment: Anjelica echols, biopsy: Focal erosion No Helicobacter pylori identified at 1005 EDT Performed By: #### S URGP #### [facility] (DEFAULT) [address] [place] [address] Professional Interpretation Performed at: Normal [facility] Comment on above: Result Comment: [facility] CL[facility]ICAL [facility] For Immediate Release to Patient's [facility]? Yes [address] [place], [place] [address] [place], [place] [address] Performed By: #### S URGP #### [facility] (DEFAULT) [address] [place] [address] CBC,PLATELETSon 08-08-2024 Erythrocyte distribution width (RBC) [Ratio] 13.6 % 10.8 - 14.9 % [facility] Hematocrit (Bld) [Volume fraction] 45.7 % High 34.9 - 44.3 % [facility] Hemoglobin (Bld) [Mass/Vol] 14.4 g/dL 11.4 - 15.2 g/dL [facility] Interpretation and review of laboratory results Abnormal [facility] MCH (RBC) [Entitic mass] 29.4 pg 25.9 - 33.9 pg [facility] MCHC (RBC) [Mass/Vol] 31.5 g/dL 31.4 - 35.9 g/dL [facility] MCV (RBC) [Entitic vol] 93.3 fL 79.6 - 97.7 fL [facility] Platelet mean volume (Bld) [Entitic vol] 10.9 fL 8.5 - 12.2 fL [facility] Platelets (Bld) [#/Vol] 212 10*3/uL 150 - 393 K/uL [facility] RBC (Bld) [#/Vol] 4.9 10*6/uL [facility] WBC (Bld) [#/Vol] 10.39 10*3/uL 3.99 - 11.19 K/uL [facility] Hematocrit (Bld) [Volume fraction] 45.7 % High 34.9-44.3 [facility] Comment on above: Performed By: #### H EMO #### [facility] (DEFAULT) [address] [place] [address] Hemoglobin (Bld) [Mass/Vol] 14.4 g/dL Normal 11.4-15.2 [facility] Comment on above: Performed By: #### H EMOGC #### [facility] (DEFAULT) [address] [place] [address] MCV (RBC) [Entitic vol] 93.3 fL Normal 79.6-97.7 O [facility] Comment on above: Performed By: #### H EMOGC #### [facility] (DEFAULT) [address] [place] [address] Mean Cell Hgb 29.4 pg Normal 25.9-33.9 [facility] Comment on above: Performed By: #### H EMOGC #### [facility] (DEFAULT) [address] [place] [address] Mean Cell Hgb Conc 31.5 g/dL Normal 31.4-35.9 [facility] Comment on above: Performed By: #### H EMOGC #### [facility] (DEFAULT) [address] [place] [address] Platelet mean volume (Bld) [Entitic vol] 10.9 fL Normal 8.5-12.2 [facility] Comment on above: Performed By: #### H EMOGC #### [facility] (DEFAULT) [address] [address] Platelets (Bld) [#/Vol] 212 10*3/uL Normal 150-393 [facility] Comment on above: Performed By: #### H EMOGC #### [facility] (DEFAULT) [address] [place] [address] RBC (Bld) [#/Vol] 4.90 10*6/uL Normal 3.91-5.04 [facility] Comment on above: Performed By: #### H EMOGC #### [facility] (DEFAULT) [address] [place] [address] RBC Distribution 13.6 % Normal 10.8-14.9 [facility] Comment on above: Performed By: #### H [facility] #### [facility] (DEFAULT) [address] [place] [address] WBC (Bld) [#/Vol] 10.39 10*3/uL Normal 3.99-11.19 [facility] Comment on above: Performed By: #### H [facility] #### [facility] (DEFAULT) [address] [place] [address] CHEM 7 (LYTES,BUN,CREA,GLUC) on 08-08-2024 Anion gap [Moles/Vol] 15 mmol/L 7 - 17 mmol/L [facility] Chloride [Moles/Vol] 104 mmol/L 98 - 10 8 mmol/L [facility] CO2 [Moles/Vol] 25 mmol/L 21 - 31 mmol/L [facility] Creatinine [Mass/Vol] 1.15 mg/dL 0.50 - 1.20 mg/dL [facility] eGFR, CKD-EPI, Female 48 Low - PINF [facility] Glucose [Mass/Vol] 111 mg/dL 70 - 179 mg/dL [facility] Interpretation and review of laboratory results Abnormal [facility] Osmolality Calc [Osmolality] 302 [facility] Potassium [Moles/Vol] 4.3 mmol/L 3.5 - 5.0 mmol/L [facility] Sodium [Moles/Vol] 140 mmol/L 135 - 145 mmol/L [facility] Urea nitrogen [Mass/Vol] 35 mg/dL High 7 - 25 mg/dL [facility] Urea nitrogen/Creatinine [Mass ratio] 30 mg/mg [facility] Anion gap [Moles/Vol] 15 mmol/L Normal 7-17 [facility] Comment on above: Performed By: #### M WENDY, CHM7 ####[facility] (DEFAULT)[address] [place] [address] Chloride [Moles/Vol] 104 mmol/L Normal 98-108 [facility] Comment on above: Performed By: #### HEYDI PALACIOS7 ####[facility] (DEFAULT)[address] [place] [address] CO2 [Moles/Vol] 25 mmol/L Normal 21-31 [facility] Comment on above: Performed By: #### HEYDI PALACIOS7 ####[facility] (DEFAULT)[address] [place] [address] Creatinine [Mass/Vol] 1.15 mg/dL Normal 0.50-1.20 [facility] Comment on above: Performed By: #### HEYDI PALACIOS7 ####[facility] (DEFAULT)[address] [place] [address], [place] [address] GFR/1.73 sq M.predicted among non-blacks MDRD (S/P/Bld) [Vol rate/Area] 48 mL/min/{1.73_m2} Low >=60 [facility] Comment on above: Result Comment: Repo rted eGFR is based on the CKD-EPI 2020 equation using creatinine, age, and sex. Performed By: #### CAMERON PALACIOS ####[facility] (DEFAULT)[address] [place] [address] Glucose [Mass/Vol] 111 mg/dL Normal Nonfastin -179 mg/dL; Fastin-99 [facility] Comment on above: Performed By: #### CAMERON PALACIOS ####[facility] (DEFAULT)[address] [place] [address], [place] [address] Osmolality [Osmolality] 302 mosm/kg Normal 278-305 [facility] Comment on above: Performed By: #### HEYDI PALACIOS7 ####[facility] (DEFAULT)[address] [place] [address], [place] [address] Potassium [Moles/Vol] 4.3 mmol/L Normal 3.5-5.0 [facility] Comment on above: Performed By: #### M GO, CHM7 ####[facility] (DEFAULT)[address] [place] [address] Sodium [Moles/Vol] 140 mmol/L Normal 135-145 [facility] Comment on above: Performed By: #### M WENDY CHM7 ####[facility] (DEFAULT)[address] [place] [address] Urea nitrogen [Mass/Vol] 35 mg/dL High 7-25 [facility] Comment on above: Performed By: #### M WENDY CHM7 ####[facility] (DEFAULT)[address] [place] [address] Urea nitrogen/Creatinine [Mass ratio] 30 mg/mg Normal [facility] Comment on above: Performed By: #### M WENDY CHM7 ####[facility] (DEFAULT)[address] [place] [address] CT HEAD WITHOUT CONTRASTon 0 08-08-2024 CT [...] have reviewed and approved this report. Normal [facility] CT Head WO contraston 2024 RADIOLOGY RADIOLOGY [facility] Study observation (narrative) [facility] GLUCOSE POCon 08-08-2024 Glucose [Mass/Vol] 150 mg/dL 70 - 179 mg/dL [facility] POC Sample Type CAPBL [facility] Glucose [Mass/Vol] 148 mg/dL 70 - 179 mg/dL [facility] POC Sample Type CAPBL [facility] Glucose [Mass/Vol] 192 mg/dL High 70 - 179 mg/dL [facility] Interpretation and review of laboratory results Abnormal [facility] POC Sample Type CAPBL [facility] Glucose [Mass/Vol] 198 mg/dL High 70 - 179 mg/dL [facility] Interpretation and review of laboratory results Abnormal [facility] Glucose [Mass/Vol] 186 mg/dL High 70 - 179 mg/dL [facility] Interpretation and review of laboratory results Abnormal [facility] POC Sample Type CAPBL [facility] MAGNESIUMon 08-08-2024 Interpretation and review of laboratory results Normal [facility] Magnesium [Mass/Vol] 1.7 mg/dL 1.6 - 2 .6 mg/dL [facility] Magnesium [Mass/Vol] 1.7 mg/dL Normal 1.6-2.6 [facility] Comment on above: Performed By: #### M , CHM7 ####[facility] (DEFAULT)[address] [place] [address] No Panel Informationon 08-08 [facility] URINALYSIS REFLEX TO CULTURE PERFORMABLEOrdered By: Danya Yates on 08-08-2024 Appearance (U) Cloudy Abnormal Clear [facility] Bacteria LM Ql (Urine sed) PRESENT Abnormal ABSENT [facility] Color (U) Yellow Yellow [facility] Epithelial cells.squamous LM Ql (Urine sed) 0-2/hpf 0-2/hpf, 3-5/hpf = 1+ [facility] Glucose Test strip (U) [Mass/Vol] Negative Negative [facility] Interpretation and review of laboratory results Abnormal [facility] Ketones (U) [Mass/Vol] Trace Abnormal Negative [facility] Leukocyte esterase Test strip Ql (U) Large Abnormal Negative [facility] Nitrite Ql (U) Positive Abnormal Negative [facility] pH (U) 7.0 [pH] 5.0 - 7.0 [facility] Protein (U) [Mass/Vol] Trace Abnormal Negative [facility] RBC (U) [#/Vol] Trace Abnormal Negative [facility] RBC LM.HPF (Urine sed) [#/Area] 6-10 Abnormal [facility] Specific gravity (U) [Rel density] 1.023 1.001 - 1.035 [facility] Urobilinogen (U) [Mass/Vol] 1.0 E.U./dL 0.2 E.U/dL, 1.0 E.U/dL [facility] WBC LM.HPF (Urine sed) [#/Area] /[HPF] Abnormal [facility] URINALYSIS REFLEX TO CULTURE PERFORMABLEon 08-08-2024 Appearance (U) Cloudy Abnormal Clear [facility] Comment on above: Order Comment: For i ndwelling catheters, specimen collection is acceptable on catheter day 1 and 2 only. ? Performed By: #### T YPEC #### [facility] (DEFAULT) [address] [place] [address] Bacteria PRESENT Abnormal ABSENT [facility] Comment on above: Order Comment: For i ndwelling catheters, specimen collection is acceptable on catheter day 1 and 2 only. ? Performed By: #### T YPEC #### [facility] (DEFAULT) [address] [place] [address] Blood Urine Trace Abnormal Negative [facility] Comment on above: Order Comment: For i ndwelling catheters, specimen collection is acceptable on catheter day 1 and 2 only. ? Performed By: #### T YPEC #### [facility] (DEFAULT) [address] [place] [address] Color (U) Yellow Normal Yellow [facility] Comment on above: Order Comment: For i ndwelling catheters, specimen collection is acceptable on catheter day 1 and 2 only. ? Performed By: #### T YPEC #### [facility] (DEFAULT) [address] [place] [address] Glucose Ql (U) Negative Normal Negative [facility] Comment on above: Order Comment: For i ndwelling catheters, specimen collection is acceptable on catheter day 1 and 2 only. ? Performed By: #### T YPEC #### [facility] (DEFAULT) [address] [place] [address] Ketones Ql (U) Trace Abnormal Negative [facility] Comment on above: Order Comment: For i ndwelling catheters, specimen collection is acceptable on catheter day 1 and 2 only. ? Performed By: #### T YPEC #### [facility] (DEFAULT) [address] [place] [address] Leukocyte esterase Test strip Ql (U) Large Abnormal Negative [facility] Comment on above: Order Comment: For i ndwelling catheters, specimen collection is acceptable on catheter day 1 and 2 only. ? Performed By: #### T YPEC #### [facility] (DEFAULT) [address] [place] [address] Nitrites Urine Positive Abnormal Negative [facility] Comment on above: Order Comment: For i ndwelling catheters, specimen collection is acceptable on catheter day 1 and 2 only. ? Performed By: #### T YPEC #### [facility] (DEFAULT) [address] [address] pH (U) 7.0 [pH] Normal 5.0-7.0 [facility] Comment on above: Order Comment: For i ndwelling catheters, specimen collection is acceptable on catheter day 1 and 2 only. ? Performed By: #### T YPEC #### [facility] (DEFAULT) [address] [address] Protein Urine Trace Abnormal Negative [facility] Comment on above: Order Comment: For i ndwelling catheters, specimen collection is acceptable on catheter day 1 and 2 only. ? Performed By: #### T YPEC #### [facility] (DEFAULT) [address] [address] RBC Urine 6-10 Abnormal 0-2 [facility] Comment on above: Order Comment: For i ndwelling catheters, specimen collection is acceptable on catheter day 1 and 2 only. ? Performed By: #### T YPEC #### [facility] (DEFAULT) [address] [address] Specific [place] Urine 1.023 Normal 1.001-1.035 O [facility] Comment on above: Order Comment: For i ndwelling catheters, specimen collection is acceptable on catheter day 1 and 2 only. ? Performed By: #### T YPEC #### [facility] (DEFAULT) [address] [place] [address] Squamous/Epithelial Cells, Urine 0-2/hpf Normal 0-2/hpf, 3-5/hpf = 1+ [facility] Comment on above: Order Comment: For i ndwelling catheters, specimen collection is acceptable on catheter day 1 and 2 only. ? Performed By: #### T YPEC #### [facility] (DEFAULT) [address] [place] [address] Urobilinogen Urine 1.0 E.U./dL Normal 0.2 E.U/d L, 1.0 E.U/dL [facility] Comment on above: Order Comment: For i ndwelling catheters, specimen collection is acceptable on catheter day 1 and 2 only. ? Performed By: #### T YPEC #### [facility] (DEFAULT) [address] [address] WBC LM.HPF (Urine sed) [#/Area] /[HPF] Abnormal 0 - 5 [facility] Comment on above: Order Comment: For i ndwelling catheters, specimen collection is acceptable on catheter day 1 and 2 only. ? Performed By: #### T YPEC #### [facility] (DEFAULT) [address] [address] URINE CULTUREon 08-08-2024 Amikacin [Susceptibility] <= Invalid Interpretation Code [facility] Comment on above: Order Comment: For [...] Performed By: #### T YPEC #### [facility] (DEFAULT) [address] [address] Ampicillin [Susceptibility] >=32 Resistant [facility] Comment on above: Order Comment: For [...] ? Performed By: #### T YPEC #### [facility] (DEFAULT) [address] [address] Ampicillin+Sulbactam [Susceptibility] >=32 Resistant [facility] Comment on above: Order Comment: For [...] Performed By: #### T YPEC #### [facility] (DEFAULT) [address] [place] [address] ceFAZolin [Susceptibility] >= Resistant [facility] Comment on above: Order Comment: For [...] cefdinir. Performed By: #### T YPEC #### [facility] (DEFAULT) [address] [address] Cefepime [Susceptibility] <= Invalid Interpretation Code [facility] Comment on above: Order Comment: For [...] Performed By: #### T YPEC #### [facility] (DEFAULT) [address] [place] [address] cefTRIAXone [Susceptibility] <= Invalid Interpretation Code [facility] Comment on above: Order Comment: For [...] Performed By: #### T YPEC #### [facility] (DEFAULT) [address] [place] [address] Ciprofloxacin [Susceptibility] >= Resistant [facility] Comment on above: Order Comment: For [...] ? Performed By: #### T YPEC #### [facility] (DEFAULT) [address] [address] Ertapenem [Susceptibility] <= Invalid Interpretation Code [facility] Comment on above: Order Comment: For [...] ? Performed By: #### T YPEC #### [facility] (DEFAULT) [address] [address] Gentamicin [Susceptibility] <= Invalid Interpretation Code [facility] Comment on above: Order Comment: For [...] ? Performed By: #### T YPEC #### [facility] (DEFAULT) [address] [address] levoFLOXacin [Susceptibility] >= Resistant [facility] Comment on above: Order Comment: For [...] ? Performed By: #### T YPEC #### [facility] (DEFAULT) [address] [address] Nitrofurantoin [Susceptibility] 128 ug/mL Resistant [facility] Comment on above: Order Comment: For [...] ? Performed By: #### T YPEC #### [facility] (DEFAULT) [address] [address] Piperacillin+Tazobactam [Susceptibility] 8 ug/mL Invalid Interpretation Code [facility] Comment on above: Order Comment: For [...] ? Performed By: #### T YPEC #### [facility] (DEFAULT) [address] [address] Trimethoprim+Sulfametho xazole [Susceptibility] <= Invalid Interpretation Code [facility] Comment on above: Order Comment: For [...] ? Performed By: #### T YPEC #### [facility] (DEFAULT) [address] [address] CBC,PLATELETSon 08-07-2024 Erythrocyte distribution width (RBC) [Ratio] 13.9 % 10.8 - 14.9 % [facility] Hematocrit (Bld) [Volume fraction] 43.1 % 34.9 - 44.3 % [facility] Hemoglobin (Bld) [Mass/Vol] 13.7 g/dL 11.4 - 15.2 g/dL [facility] Interpretation and review of laboratory results Abnormal [facility] MCH (RBC) [Entitic mass] 29.6 pg 25.9 - 33.9 pg [facility] MCHC (RBC) [Mass/Vol] 31.8 g/dL 31.4 - 35.9 g/dL [facility] MCV (RBC) [Entitic vol] 93.1 fL 79.6 - 97.7 fL [facility] Platelet mean volume (Bld) [Entitic vol] 11.1 fL 8.5 - 12.2 fL [facility] Platelets (Bld) [#/Vol] 214 10*3/uL 150 - 393 K/uL [facility] RBC (Bld) [#/Vol] 4.63 10*6/uL [facility] WBC (Bld) [#/Vol] 11.3 10*3/uL High 3.99 - 11.19 K/uL [facility] CHEM 7 (LYTES,BUN,CREA,GLUC) on 08-07-2024 Anion gap [Moles/Vol] 13 mmol/L 7 - 17 mmol/L [facility] Chloride [Moles/Vol] 105 mmol/L 98 - 10 8 mmol/L [facility] CO2 [Moles/Vol] 28 mmol/L 21 - 31 mmol/L [facility] Creatinine [Mass/Vol] 1.19 mg/dL 0.50 - 1.20 mg/dL [facility] eGFR, CKD-EPI, Female 47 Low - PINF [facility] Glucose [Mass/Vol] 90 mg/dL 70 - 179 mg/dL [facility] Interpretation and review of laboratory results Abnormal [facility] Osmolality Calc [Osmolality] 304 [facility] Potassium [Moles/Vol] 4.2 mmol/L 3.5 - 5.0 mmol/L [facility] Sodium [Moles/Vol] 142 mmol/L 135 - 145 mmol/L [facility] Urea nitrogen [Mass/Vol] 34 mg/dL High 7 - 25 mg/dL [facility] Urea nitrogen/Creatinine [Mass ratio] 29 mg/mg [facility] GLUCOSE POCon 08-07-2024 Glucose [Mass/Vol] 185 mg/dL High 70 - 179 mg/dL [facility] Interpretation and review of laboratory results Abnormal [facility] POC Sample Type CAPBL [facility] Glucose [Mass/Vol] 106 mg/dL 70 - 179 mg/dL [facility] POC Sample Type CAPBL [facility] Glucose [Mass/Vol] 104 mg/dL 70 - 179 mg/dL [facility] POC Sample Type CAPBL [facility] MAGNESIUMon 08-07-2024 Interpretation and review of laboratory results Normal [facility] Magnesium [Mass/Vol] 1.8 mg/dL 1.6 - 2 .6 mg/dL [facility] No Panel Informationon 08-07 [facility] CBC,PLATELETSon 08-06-2024 Hematocrit (Bld) [Volume fraction] 43.1 % Normal 34.9-44.3 [facility] Comment on above: Performed By: #### X M #### [facility] (DEFAULT) [address] [address] Hemoglobin (Bld) [Mass/Vol] 13.7 g/dL Normal 11.4-15.2 [facility] Comment on above: Performed By: #### X M #### [facility] (DEFAULT) [address] [address] MCV (RBC) [Entitic vol] 93.1 fL Normal 79.6-97.7 [facility] Comment on above: Performed By: #### X M #### [facility] (DEFAULT) [address] [place] [address] Mean Cell Hgb 29.6 pg Normal 25.9-33.9 [facility] Comment on above: Performed By: #### X M #### [facility] (DEFAULT) [address] [address] Mean Cell Hgb Conc 31.8 g/dL Normal 31.4-35.9 [facility] Comment on above: Performed By: #### X M #### [facility] (DEFAULT) [address] [address] Platelet mean volume (Bld) [Entitic vol] 11.1 fL Normal 8.5-12.2 [facility] Comment on above: Performed By: #### X M #### [facility] (DEFAULT) [address] [place] [address] Platelets (Bld) [#/Vol] 214 10*3/uL Normal 150-393 [facility] Comment on above: Performed By: #### X M #### [facility] (DEFAULT) [address] [address] RBC (Bld) [#/Vol] 4.63 10*6/uL Normal 3.91-5.04 [facility] Comment on above: Performed By: #### X M #### [facility] (DEFAULT) [address] [place] [address] RBC Distribution 13.9 % Normal 10.8-14.9 [facility] Comment on above: Performed By: #### X M #### [facility] (DEFAULT) [address] [address] WBC (Bld) [#/Vol] 11.30 10*3/uL High 3.99-11.19 [facility] Comment on above: Performed By: #### X M #### [facility] (DEFAULT) [address] [place] [address] Erythrocyte distribution width (RBC) [Ratio] 13.9 % 10.8 - 14.9 % [facility] Hematocrit (Bld) [Volume fraction] 44 % 34.9 - 44.3 % [facility] Hemoglobin (Bld) [Mass/Vol] 13.9 g/dL 11.4 - 15.2 g/dL [facility] Interpretation and review of laboratory results Abnormal [facility] MCH (RBC) [Entitic mass] 29.1 pg 25.9 - 33.9 pg [facility] MCHC (RBC) [Mass/Vol] 31.6 g/dL 31.4 - 35.9 g/dL [facility] MCV (RBC) [Entitic vol] 92.2 fL 79.6 - 97.7 fL [facility] Platelet mean volume (Bld) [Entitic vol] 10.7 fL 8.5 - 12.2 fL [facility] Platelets (Bld) [#/Vol] 216 10*3/uL 150 - 393 K/uL [facility] RBC (Bld) [#/Vol] 4.77 10*6/uL [facility] WBC (Bld) [#/Vol] 12.14 10*3/uL High 3.99 - 11.19 K/uL [facility] CHEM 7 (LYTES,BUN,CREA,GLUC) on 08-06-2024 Anion gap [Moles/Vol] 13 mmol/L Normal 7-17 [facility] Comment on above: Performed By: #### CAMERON PALACIOS ####[facility] (DEFAULT)[address] [place] [address] Chloride [Moles/Vol] 105 mmol/L Normal 98-108 [facility] Comment on above: Performed By: #### HEYDI PALACIOS7 ####[facility] (DEFAULT)[address] [place] [address] CO2 [Moles/Vol] 28 mmol/L Normal 21-31 [facility] Comment on above: Performed By: #### HEYDI PALACIOS7 ####[facility] (DEFAULT)[address] [place] [address] Creatinine [Mass/Vol] 1.19 mg/dL Normal 0.50-1.20 [facility] Comment on above: Performed By: #### CAMERON PALACIOS ####[facility] (DEFAULT)[address] [place] [address] GFR/1.73 sq M.predicted among non-blacks MDRD (S/P/Bld) [Vol rate/Area] 47 mL/min/{1.73_m2} Low >=60 [facility] Comment on above: Result Comment: Repo rted eGFR is based on the CKD-EPI 2020 equation using creatinine, age, and sex. Performed By: #### CAMERON PALACIOS ####[facility] (DEFAULT)[address] [place] [address] Glucose [Mass/Vol] 90 mg/dL Normal Nonfastin -179 mg/dL; Fastin-99 [facility] Comment on above: Performed By: #### CAMERON PALACIOS ####[facility] (DEFAULT)[address] [place] [address] Osmolality [Osmolality] 304 mosm/kg Normal 278-305 [facility] Comment on above: Performed By: #### CAMERON PALACIOS ####[facility] (DEFAULT)[address] [place] [address] Potassium [Moles/Vol] 4.2 mmol/L Normal 3.5-5.0 [facility] Comment on above: Performed By: #### CAMERON PALACIOS ####[facility] (DEFAULT)[address] [place] [address] Sodium [Moles/Vol] 142 mmol/L Normal 135-145 [facility] Comment on above: Performed By: #### HEYDI PALACIOS7 ####[facility] (DEFAULT)[address] [place] [address] Urea nitrogen [Mass/Vol] 34 mg/dL High 7-25 [facility] Comment on above: Performed By: #### Jaiden NGUYEN CHM7 ####[facility] (DEFAULT)[address] [place] [address] Urea nitrogen/Creatinine [Mass ratio] 29 mg/mg Normal [facility] Comment on above: Performed By: #### Jaiden NGUYEN CHM7 ####[facility] (DEFAULT)[address] [place] [address] Anion gap [Moles/Vol] 14 mmol/L 7 - 17 mmol/L [facility] Chloride [Moles/Vol] 107 mmol/L 98 - 10 8 mmol/L [facility] CO2 [Moles/Vol] 27 mmol/L 21 - 31 mmol/L [facility] Creatinine [Mass/Vol] 1.19 mg/dL 0.50 - 1.20 mg/dL [facility] eGFR, CKD-EPI, Female 47 Low - PINF [facility] Glucose [Mass/Vol] 88 mg/dL 70 - 179 mg/dL [facility] Interpretation and review of laboratory results Abnormal [facility] Osmolality Calc [Osmolality] 307 High [facility] Potassium [Moles/Vol] 3.9 mmol/L 3.5 - 5.0 mmol/L [facility] Sodium [Moles/Vol] 144 mmol/L 135 - 145 mmol/L [facility] Urea nitrogen [Mass/Vol] 34 mg/dL High 7 - 25 mg/[facility] Urea nitrogen/Creatinine [Mass ratio] 29 mg/mg [facility] GLUCOSE POCon 08-06-2024 Glucose [Mass/Vol] 166 mg/dL 70 - 179 mg/dL [facility] Glucose [Mass/Vol] 106 mg/dL 70 - 179 mg/dL [facility] Glucose [Mass/Vol] 100 mg/dL 70 - 179 mg/dL [facility] POC Sample Type [facility] Glucose [Mass/Vol] 219 mg/dL High 70 - 179 mg/dL [facility] Interpretation and review of laboratory results Abnormal [facility] Glucose [Mass/Vol] 249 mg/dL High 70 - 179 mg/dL [facility] Glucose [Mass/Vol] 178 mg/dL 70 - 179 mg/dL [facility] Glucose [Mass/Vol] 194 mg/dL High 70 - 179 mg/dL [facility] Glucose [Mass/Vol] 93 mg/dL 70 - 179 mg/dL [facility] POC Sample Type VENO [facility] IONIZED CALCIUM, WHOLE BLOOD Ordered By: Zuleika Blunt on 08-06-2024 Calcium.ionized (Bld) [Moles/Vol] 4.72 mg/dL 4.60 - 5.30 mg/dL [facility] Interpretation and review of laboratory results Normal [facility] MAGNESIUMon 08-06-2024 Magnesium [Mass/Vol] 1.8 mg/dL Normal 1.6-2.6 [facility] Comment on above: Performed By: #### M [facility] ####[facility] (DEFAULT)[address] [place] [address] Magnesium [Mass/Vol] 2.4 mg/dL 1.6 - 2 .6 mg/dL [facility] No Panel Informationon 08-06 POC Sample Type CAPBL [facility] Interpretation and review of laboratory results Abnormal [facility] POC Sample Type CAPBL [facility] Interpretation and review of laboratory results Normal [facility] PHOSPHATE, INORGANICon 08-06 Phosphate [Mass/Vol] 3.2 mg/dL 2.2 - 4 .6 mg/dL [facility] RF videography Hypopharynx a nd Esophagus Views W liquid and paste contrast PO during swallowingon 08-06-2024 RADIOLOGY RADIOLOGY [facility] Radiology Study observation (narrative) [facility] RF videography Hypopharynx a nd Esophagus Views W liquid and paste contrast PO during swallowingOrdered By: Gerry Resendez on 08-06-2024 [facility] Work Phone: SPEECH MODIFIED BARIUM SWALL OWon 08-06-2024 [facility] XR FLUORO MODIFIED BARIUM SW ALLOW [...] for specific therapeutic recommendations, please see the custom framing specialist report of the speech pathologist. Examination performed by ARCADIO Nicole, under the direct supervision of Gerry Resendez M.D., who was immediately available on site during the examination. I personally viewed and interpreted these images and I have reviewed and approved this report. Normal [facility] CBC,PLATELETSon 08-05-2024 Hematocrit (Bld) [Volume fraction] 44.0 % Normal 34.9-44.3 [facility] Comment on above: Performed By: #### B LDCULT #### [facility] (DEFAULT) [address] [place] [address] Hemoglobin (Bld) [Mass/Vol] 13.9 g/dL Normal 11.4-15.2 [facility] Comment on above: Performed By: #### B LDCULT #### [facility] (DEFAULT) [address] [place] [address] MCV (RBC) [Entitic vol] 92.2 fL Normal 79.6-97.7 O [facility] Comment on above: Performed By: #### B LDCULT #### [facility] (DEFAULT) [address] [place] [address] Mean Cell Hgb 29.1 pg Normal 25.9-33.9 [facility] Comment on above: Performed By: #### B LDCULT #### [facility] (DEFAULT) [address] [place] [address] Mean Cell Hgb Conc 31.6 g/dL Normal 31.4-35.9 [facility] Comment on above: Performed By: #### B LDCULT #### [facility] (DEFAULT) [address] [place] [address] Platelet mean volume (Bld) [Entitic vol] 10.7 fL Normal 8.5-12.2 [facility] Comment on above: Performed By: #### B LDCULT #### [facility] (DEFAULT) [address] [place] [address] Platelets (Bld) [#/Vol] 216 10*3/uL Normal 150-393 [facility] Comment on above: Performed By: #### B LDCULT #### [facility] (DEFAULT) [address] [place] [address] RBC (Bld) [#/Vol] 4.77 10*6/uL Normal 3.91-5.04 [facility] Comment on above: Performed By: #### B LDCULT #### [facility] (DEFAULT) [address] [place] [address] RBC Distribution 13.9 % Normal 10.8-14.9 [facility] Comment on above: Performed By: #### B LDCULT #### [facility] (DEFAULT) [address] [place] [address] WBC (Bld) [#/Vol] 12.14 10*3/uL High 3.99-11.19 [facility] Comment on above: Performed By: #### B LDCULT #### [facility] (DEFAULT) [address] [place] [address] Erythrocyte distribution width (RBC) [Ratio] 13.9 % 10.8 - 14.9 % [facility] Hematocrit (Bld) [Volume fraction] 39.6 % 34.9 - 44.3 % [facility] Hemoglobin (Bld) [Mass/Vol] 12.6 g/dL 11.4 - 15.2 g/dL [facility] Interpretation and review of laboratory results Normal [facility] MCH (RBC) [Entitic mass] 29.3 pg 25.9 - 33.9 pg [facility] MCHC (RBC) [Mass/Vol] 31.8 g/dL 31.4 - 35.9 g/dL [facility] MCV (RBC) [Entitic vol] 92.1 fL 79.6 - 97.7 fL [facility] Platelet mean volume (Bld) [Entitic vol] 10.7 fL 8.5 - 12.2 fL [facility] Platelets (Bld) [#/Vol] 198 10*3/uL 150 - 393 K/uL [facility] RBC (Bld) [#/Vol] 4.3 10*6/uL [facility] WBC (Bld) [#/Vol] 10.61 10*3/uL 3.99 - 11.19 K/uL [facility] Hematocrit (Bld) [Volume fraction] 39.6 % Normal 34.9-44.3 [facility] Comment on above: Performed By: #### H EMOGC ####[facility] (DEFAULT)[address] [place] [address] Hemoglobin (Bld) [Mass/Vol] 12.6 g/dL Normal 11.4-15.2 [facility] Comment on above: Performed By: #### H EMOGC ####[facility] (DEFAULT)[address] [place] [address] MCV (RBC) [Entitic vol] 92.1 fL Normal 79.6-97.7 O [facility] Comment on above: Performed By: #### H EMOGC ####[facility] (DEFAULT)[address] [place] [address] Mean Cell Hgb 29.3 pg Normal 25.9-33.9 [facility] Comment on above: Performed By: #### H EMOGC ####[facility] (DEFAULT)[address] [place] [address] Mean Cell Hgb Conc 31.8 g/dL Normal 31.4-35.9 [facility] Comment on above: Performed By: #### H EMOGC ####[facility] (DEFAULT)[address] [place] [address] Platelet mean volume (Bld) [Entitic vol] 10.7 fL Normal 8.5-12.2 [facility] Comment on above: Performed By: #### H EMOGC ####[facility] (DEFAULT)[address] [place] [address] Platelets (Bld) [#/Vol] 198 10*3/uL Normal 150-393 [facility] Comment on above: Performed By: #### H EMOGC ####[facility] (DEFAULT)[address] [place] [address] RBC (Bld) [#/Vol] 4.30 10*6/uL Normal 3.91-5.04 [facility] Comment on above: Performed By: #### H EMOGC ####[facility] (DEFAULT)[address] [place] [address] RBC Distribution 13.9 % Normal 10.8-14.9 [facility] Comment on above: Performed By: #### H EMOGC ####[facility] (DEFAULT)[address] [place] [address] WBC (Bld) [#/Vol] 10.61 10*3/uL Normal 3.99-11.19 [facility] Comment on above: Performed By: #### H EMO ####[facility] (DEFAULT)[address] [place] [address] CHEM 7 (LYTES,BUN,CREA,GLUC) on 08-05-2024 Anion gap [Moles/Vol] 14 mmol/L Normal 7-17 [facility] Comment on above: Performed By: #### S URGP #### [facility] (DEFAULT) [address] [place] [address] Chloride [Moles/Vol] 107 mmol/L Normal 98-108 [facility] Comment on above: Performed By: #### S URGP #### [facility] (DEFAULT) [address] [place] [address] CO2 [Moles/Vol] 27 mmol/L Normal 21-31 [facility] Comment on above: Performed By: #### S URGP #### [facility] (DEFAULT) [address] [place] [address] Creatinine [Mass/Vol] 1.19 mg/dL Normal 0.50-1.20 [facility] Comment on above: Performed By: #### S URGP #### [facility] (DEFAULT) [address] [place] [address] GFR/1.73 sq M.predicted among non-blacks MDRD (S/P/Bld) [Vol rate/Area] 47 mL/min/{1.73_m2} Low >=60 [facility] Comment on above: Result Comment: Repo rted eGFR is based on the CKD-EPI 2020 equation using creatinine, age, and sex. Performed By: #### S URGP #### [facility] (DEFAULT) [address] [place] [address] Glucose [Mass/Vol] 88 mg/dL Normal Nonfastin -179 mg/dL; Fastin-99 [facility] Comment on above: Performed By: #### S URGP #### [facility] (DEFAULT) [address] [place] [address] Osmolality [Osmolality] 307 mosm/kg High 278-305 [facility] Comment on above: Performed By: #### S URGP #### [facility] (DEFAULT) [address] [place] [address] Potassium [Moles/Vol] 3.9 mmol/L Normal 3.5-5.0 [facility] Comment on above: Performed By: #### S URGP #### [facility] (DEFAULT) [address] [place] [address]67 Sodium [Moles/Vol] 144 mmol/L Normal 135-145 [facility] Comment on above: Performed By: #### S URGP #### [facility] (DEFAULT) [address] [place] [address]388 Urea nitrogen [Mass/Vol] 34 mg/dL High 7-25 [facility] Comment on above: Performed By: #### S URGP #### [facility] (DEFAULT) [address] [place] [address] 08191 Urea nitrogen/Creatinine [Mass ratio] 29 mg/mg Normal [facility] Comment on above: Performed By: #### S URGP #### [facility] (DEFAULT) [address] [place] [address] Anion gap [Moles/Vol] 14 mmol/L 7 - 17 mmol/L [facility] Chloride [Moles/Vol] 108 mmol/L 98 - 10 8 mmol/L [facility] CO2 [Moles/Vol] 25 mmol/L 21 - 31 mmol/L [facility] Creatinine [Mass/Vol] 1.45 mg/dL High 0.50 - 1.20 mg/dL [facility] eGFR, CKD-EPI, Female 37 Low - PINF [facility] Glucose [Mass/Vol] 242 mg/dL High 70 - 179 mg/dL [facility] Interpretation and review of laboratory results Abnormal [facility] Osmolality Calc [Osmolality] 315 High [facility] Potassium [Moles/Vol] 3.8 mmol/L 3.5 - 5.0 mmol/L [facility] Sodium [Moles/Vol] 143 mmol/L 135 - 145 mmol/L [facility] Urea nitrogen [Mass/Vol] 35 mg/dL High 7 - 25 mg/dL [facility] Urea nitrogen/Creatinine [Mass ratio] 24 mg/mg [facility] Anion gap [Moles/Vol] 14 mmol/L Normal 7-17 [facility] Comment on above: Performed By: #### X M #### [facility] (DEFAULT) [address] [place] [address] Chloride [Moles/Vol] 108 mmol/L Normal 98-108 [facility] Comment on above: Performed By: #### X M #### [facility] (DEFAULT) [address] [place] [address] 12742 CO2 [Moles/Vol] 25 mmol/L Normal 21-31 [facility] Comment on above: Performed By: #### X M #### [facility] (DEFAULT) [address] [place] [address] Creatinine [Mass/Vol] 1.45 mg/dL High 0.50-1.20 [facility] Comment on above: Performed By: #### X M #### [facility] (DEFAULT) [address] [place] [address]08 GFR/1.73 sq M.predicted among non-blacks MDRD (S/P/Bld) [Vol rate/Area] 37 mL/min/{1.73_m2} Low >=60 [facility] Comment on above: Result Comment: Repo rted eGFR is based on the CKD-EPI 2020 equation using creatinine, age, and sex. Performed By: #### X M #### [facility] (DEFAULT) [address] [place] [address] Glucose [Mass/Vol] 242 mg/dL High Nonfastin -179 mg/dL; Fastin-99 [facility] Comment on above: Performed By: #### X M #### [facility] (DEFAULT) [address] [place] [address]81 Osmolality [Osmolality] 315 mosm/kg High 278-305 [facility] Comment on above: Performed By: #### X M #### [facility] (DEFAULT) [address] [place] [address] 15582 Potassium [Moles/Vol] 3.8 mmol/L Normal 3.5-5.0 [facility] Comment on above: Performed By: #### X M #### [facility] (DEFAULT) [address] [address] Sodium [Moles/Vol] 143 mmol/L Normal 135-145 [facility] Comment on above: Performed By: #### X M #### [facility] (DEFAULT) [address] [address] Urea nitrogen [Mass/Vol] 35 mg/dL High 7-25 [facility] Comment on above: Performed By: #### X M #### [facility] (DEFAULT) [address] [place] [address]16 Urea nitrogen/Creatinine [Mass ratio] 24 mg/mg Normal [facility] Comment on above: Performed By: #### X M #### [facility] (DEFAULT) [address] [place] [address] Cardiac echo study Procedure Ordered By: Ezequiel Figueroa on 08-05-2024 Ao ASC index 1.56 cm/m2 [facility] Work Phone: [phone] [facility]o peak [facility]idel [facility].23 [facility]: [phone] Ao SOV index 1.56 cm/m2 [facility] Work Phone: [phone] Ao STJ index 1.36 cm/m2 [facility] Work Phone: [phone] Ao VTI 24.81 cm [facility] Work Phone: [phone] Ascending aorta 2.97 cm [facility] Work Phone: [phone] AV LVOT peak gradient 4 mmHg [facility] Work Phone: [phone] AV mean gradient 4 [facility]: [phone] AV peak gradient 6 mmHG [facility] Work Phone: [phone] AV valve area 2.72 cm2 [facility] Work Phone: [phone] AV Velocity Ratio 0.8 [facility] Work Phone: [phone] MARKUS (continuity Vmax) 2.55 cm2 [facility] Work Phone: [phone] MARKUS (continuity VTI) 2.72 cm2 [facility] Work Phone: [phone] MARKUS index (continuity Vmax) 1.34 m/s [facility] Work Phone: [phone] MARKUS index (continuity VTI) 1.43 cm2/m2 [facility] Work Phone: [phone] Avg e' pk fidel 0.09 m/s [facility] Work Phone: [phone] Body surface area Derived from formula 1.9 m2 [facility] Work Phone: [phone] BP EF 55 % [facility] Work Phone: [phone] DI (Vmax) 0.8 [facility] Work Phone: [phone] DI (VTI) 0.86 m/2 [facility] Work Phone: [phone] e' lateral pk fidel 0.0845 m/s [facility] Work Phone: [phone] e' lateral pk fidel 0.08 m/s [facility] Work Phone: [phone] e' septal pk fidel 0.0953 m/s [facility] Work Phone: [phone] e' septal pk fidel 0.1 m/s [facility] Work Phone: [phone] EF SP 2CH 56 [facility] Work Phone: [phone] EF SP 4CH 51 [facility] Work Phone: [phone] EST RAP 3 mmHg [facility] Work Phone: [phone] EST RVSP 29 mmHg [facility] Work Phone: [phone] FS 31 % [facility] Work Phone: [phone] IVC ostium 1.64 cm [facility] Work Phone: [phone] IVS 1.14 cm [facility] Work Phone: [phone] LA area 4CH 29.07 cm2 [facility] Work Phone: [phone] LA ESV BP (MOD) 86 [facility]: [phone] LA ESV BP (MOD) index 45 mL/m2 [facility] Work Phone: [phone] LA ESV SP 2CH (MOD) 81 mL [facility] Work Phone: [phone] LA ESV SP 4CH (MOD) 93 mL [facility] Work Phone: [phone] LV EDV BP 88 mL [facility] Work Phone: [phone] LV EDV SP 2CH 85 mL [facility] Work Phone: [phone] LV EDV SP 4CH 86 mL [facility] Work Phone: [phone] LV ESV BP 40 mL [facility] Work Phone: [phone] LV ESV SP 2CH 37 mL [facility] Work Phone: [phone] LV ESV SP 4CH 42 mL [facility] Work Phone: [phone] LV mass 146.48 g [facility] Work Phone: [phone] LV Mass Index 77.1 g/m2 [facility] Work Phone: [phone] LV RWT 0.56 [facility] Work Phone: [phone] LV stroke volume BP (ml) 48 mL [facility] Work Phone: [phone] LV stroke volume index BP 25.26 mL/m2 [facility] Work Phone: [phone] LVIDD 3.93 cm [facility] Work Phone: [phone] LVIDS 2.7 cm [facility] Work Phone: [phone] LVOT area 3.17 cm2 [facility] Work Phone: [phone] LVOT diameter 2.01 cm [facility] Work Phone: [phone] LVOT peak fidel 0.99 m/s [facility] Work Phone: [phone] LVOT peak VTI 21.3 cm [facility] Work Phone: [phone] LVOT stroke volume 68 cm3 [facility] Work Phone: LVOT stroke volume index 35.55 ml/m2 [facility] Work Phone: [phone] MV mean gradient 3 mmHg [facility] Work Phone: [phone] MV peak gradient 6 mmHg [facility] Work Phone: [phone] MV valve area by continuity eq 2.61 cm2 [facility] Work Phone: [phone] MV VTI 25.92 cm [facility] Work Phone: [phone] MVA (continuity VTI) 2.6 cm [facility] Work Phone: [phone] OSU AV VTI RATIO PRE STRESS 0.86 [facility] Work Phone: [phone] OSU ECHO LV BIPLANE SYSTOLIC VOLUME INDEX 21.05 mL/m2 [facility] Work Phone: [phone] OSU ECHO LV BP DIASTOLIC VOLUME INDEX 46.32 mL/m2 [facility] Work Phone: [phone] PV mean gradient 3 mmHg [facility] Work Phone: [phone] PV peak gradient 6 mmHg [facility] Work Phone: [phone] PV PK FIDEL 1.23 m/s [facility] Work Phone: [phone] PW 1.11 cm [facility] Work Phone: [phone] RA area 4CH (MOD) 22.74 cm2 [facility] Work Phone: [phone] RA vol index 4CH (MOD) 36.32 mL/m2 O [facility] Work Phone: [phone] Right atrium volume 4 chamber method of disks 69 mL [facility] Work Phone: [phone] RV Area diastolic 17.5 cm2 [facility] Work Phone: [phone] RV Area systolic 11.9 cm2 [facility] Work Phone: RV basal diam 4.56 cm [facility] Work Phone: RV Fractional area change 32 % [facility] Work Phone[facility] RV long diam 6.91 cm [facility] Work Phone: RV mid diam 2.91 cm [facility] Work Phone: RV S' 12.81 cm/s [facility] Work Phone: RVOT peak gradient 5 mmHg [facility] Work Phone: RVOT peak fidel 1.07 m/s [facility] Work Phone: RVOT peak VTI 20.1 cm [facility] Work Phone: Sinus 2.97 cm [facility] Work Phone: STJ 2.58 cm [facility] Work Phone: Stroke Volume 68 cm/mL [facility] Work Phone: [facility]roke [facility] index [facility] Work [facility]: TAPSE 2.08 cm [facility] Work Phone: TR pk grad 26 mmHg [facility] Work Phone: TR pk fidel 2.53 m/s [facility]: [facility] Work Phone: Cardiac echo study Procedure on 08-05-2024 [facility] Radiology Study observation (narrative) [facility] ECHOCARDIOGRAMon 08-05-2024 Echocardiography ? No prior [...] from the original result were not included. [facility] Facility [facility] Patient Information Patient Name ArmandOctober Legal Sex [...] Reading Providers Reading Role Read Date Ezequiel Figueroa, Echo [place] 08/05/2024 Left Heart Measurements LV - Systole [...] long di (more content not included)... Normal [facility] GLUCOSE POCon 08-05-2024 Glucose [Mass/Vol] 228 mg/dL High 70 - 179 mg/dL [facility] Interpretation and review of laboratory results Abnormal [facility] POC Sample Type CAPBL [facility] IONIZED CALCIUM, WHOLE BLOOD on 08-05-2024 ICA 4.72 mg/dL Normal 4.60-5.30 [facility] Comment on above: Performed By: #### S URGP #### [facility] (DEFAULT) [address] [place] [address]809 ICA 4.69 mg/dL Normal 4.60-5.30 [facility] Comment on above: Performed By: #### S URGP #### [facility] (DEFAULT) [address] [place] [address]451 IONIZED CALCIUM, WHOLE BLOOD Ordered By: Jairo Layton on 08-05-2024 Calcium.ionized (Bld) [Moles/Vol] 4.69 mg/dL 4.60 - 5.30 mg/dL [facility] Interpretation and review of laboratory results Normal [facility] MAGNESIUMon 08-05-2024 Magnesium [Mass/Vol] 2.4 mg/dL Normal 1.6-2.6 [facility] Comment on above: Performed By: #### S URGP #### [facility] (DEFAULT) [address] [place] [address] 10865 Magnesium [Mass/Vol] 1.8 mg/dL 1.6 - 2 .6 mg/dL [facility] Magnesium [Mass/Vol] 1.8 mg/dL Normal 1.6-2.6 [facility] Comment on above: Performed By: #### X M #### [facility] (DEFAULT) [address] [place] [address] 21664 No Panel Informationon 08-05 Interpretation and review of laboratory results Normal [facility] PHOSPHATE, INORGANICon 08-05 Phosphorous 3.2 mg/dL Normal 2.2-4.6 [facility] Comment on above: Performed By: #### S URGP #### [facility] (DEFAULT) [address] [place] [address] Phosphate [Mass/Vol] 2.7 mg/dL 2.2 - 4 .6 mg/dL [facility] Phosphorous 2.7 mg/dL Normal 2.2-4.6 [facility] Comment on above: Performed By: #### X M #### [facility] (DEFAULT) [address] [place] [address] [facility]ILLE[facility] FACTOR AGOrde red By: Madhavi Mcelroy on 08-05-2024 Interpretation and review of laboratory results Abnormal [facility] vWf Ag actual/normal IA (PPP) [Relative mass conc] 230 % High 50 - 180 % [facility] CBC,PLATELETSon 08-04-2024 Erythrocyte distribution width (RBC) [Ratio] 13.7 % 10.8 - 14.9 % [facility] Hematocrit (Bld) [Volume fraction] 40.8 % 34.9 - 44.3 % [facility] Hemoglobin (Bld) [Mass/Vol] 12.7 g/dL 11.4 - 15.2 g/dL [facility] Interpretation and review of laboratory results Abnormal [facility] MCH (RBC) [Entitic mass] 28.7 pg 25.9 - 33.9 pg [facility] MCHC (RBC) [Mass/Vol] 31.1 g/dL Low 31.4 - 35.9 g/dL [facility] MCV (RBC) [Entitic vol] 92.1 fL 79.6 - 97.7 fL [facility] Platelet mean volume (Bld) [Entitic vol] 10.8 fL 8.5 - 12.2 fL [facility] Platelets (Bld) [#/Vol] 228 10*3/uL 150 - 393 K/uL [facility] RBC (Bld) [#/Vol] 4.43 10*6/uL [facility] WBC (Bld) [#/Vol] 11.41 10*3/uL High 3.99 - 11.19 K/uL [facility] Hematocrit (Bld) [Volume fraction] 40.8 % Normal 34.9-44.3 [facility] Comment on above: Performed By: #### H EMOGC #### [facility] (DEFAULT) [address] [place] [address]18 Hemoglobin (Bld) [Mass/Vol] 12.7 g/dL Normal 11.4-15.2 [facility] Comment on above: Performed By: #### H EMOGC #### [facility] (DEFAULT) [address] [address] MCV (RBC) [Entitic vol] 92.1 fL Normal 79.6-97.7 [facility] Comment on above: Performed By: #### H EMOGC #### [facility] (DEFAULT) [address] [address] Mean Cell Hgb 28.7 pg Normal 25.9-33.9 [facility] Comment on above: Performed By: #### H EMOGC #### [facility] (DEFAULT) [address] [address] Mean Cell Hgb Conc 31.1 g/dL Low 31.4-35.9 [facility] Comment on above: Performed By: #### H EMOGC #### [facility] (DEFAULT) [address] [place] [address]116 Platelet mean volume (Bld) [Entitic vol] 10.8 fL Normal 8.5-12.2 [facility] Comment on above: Performed By: #### H EMOGC #### [facility] (DEFAULT) [address] [address] Platelets (Bld) [#/Vol] 228 10*3/uL Normal 150-393 [facility] Comment on above: Performed By: #### H [facility] #### [facility] (DEFAULT) [address] [place] [address] 79871 RBC (Bld) [#/Vol] 4.43 10*6/uL Normal 3.91-5.04 [facility] Comment on above: Performed By: #### H EMO #### [facility] (DEFAULT) [address] [place] [address] 10531 RBC Distribution 13.7 % Normal 10.8-14.9 [facility] Comment on above: Performed By: #### H [facility] #### [facility] (DEFAULT) [address] [place] [address]3449 WBC (Bld) [#/Vol] 11.41 10*3/uL High 3.99-11.19 [facility] Comment on above: Performed By: #### H [facility] #### [facility] (DEFAULT) [address] [place] [address] 48750 CHEM 7 (LYTES,BUN,CREA,GLUC) Ordered By: Lizette Canseco on 08-04-2024 Anion gap [Moles/Vol] 16 mmol/L 7 - 17 mmol/L [facility] Chloride [Moles/Vol] 109 mmol/L High 98 - 10 8 mmol/L [facility] CO2 [Moles/Vol] 24 mmol/L 21 - 31 mmol/L [facility] Creatinine [Mass/Vol] 1.47 mg/dL High 0.50 - 1.20 mg/dL [facility] eGFR, CKD-EPI, Female 36 Low - PINF [facility] Glucose [Mass/Vol] 181 mg/dL High 70 - 179 mg/dL [facility] Interpretation and review of laboratory results Abnormal [facility] Osmolality Calc [Osmolality] 312 High [facility] Potassium [Moles/Vol] 4 mmol/L 3.5 - 5.0 mmol/L [facility] Sodium [Moles/Vol] 145 mmol/L 135 - 145 mmol/L [facility] Urea nitrogen [Mass/Vol] 26 mg/dL High 7 - 25 mg/dL [facility] Urea nitrogen/Creatinine [Mass ratio] 18 mg/mg [facility] CHEM 7 (LYTES,BUN,CREA,GLUC) on 08-04-2024 Anion gap [Moles/Vol] 16 mmol/L Normal 7-17 [facility] Comment on above: Performed By: #### S URGP #### [facility] (DEFAULT) [address] [place] [address] 14814 Chloride [Moles/Vol] 109 mmol/L High 98-108 [facility] Comment on above: Performed By: #### S URGP #### [facility] (DEFAULT) [address] [place] [address] 80271 CO2 [Moles/Vol] 24 mmol/L Normal 21-31 [facility] Comment on above: Performed By: #### S URGP #### [facility] (DEFAULT) [address] [place] [address] 10303 Creatinine [Mass/Vol] 1.47 mg/dL High 0.50-1.20 [facility] Comment on above: Performed By: #### S URGP #### [facility] (DEFAULT) [address] [place] [address] 38996 GFR/1.73 sq M.predicted among non-blacks MDRD (S/P/Bld) [Vol rate/Area] 36 mL/min/{1.73_m2} Low >=60 [facility] Comment on above: Result Comment: Repo rted eGFR is based on the CKD-EPI 2020 equation using creatinine, age, and sex. Performed By: #### S URGP #### [facility] (DEFAULT) [address] [place] [address]74 Glucose [Mass/Vol] 181 mg/dL High Nonfastin -179 mg/dL; Fastin-99 [facility] Comment on above: Performed By: #### S URGP #### [facility] (DEFAULT) [address] [place] [address] Osmolality [Osmolality] 312 mosm/kg High 278-305 [facility] Comment on above: Performed By: #### S URGP #### [facility] (DEFAULT) [address] [place] [address] Potassium [Moles/Vol] 4.0 mmol/L Normal 3.5-5.0 [facility] Comment on above: Performed By: #### S URGP #### [facility] (DEFAULT) [address] [place] [address] Sodium [Moles/Vol] 145 mmol/L Normal 135-145 [facility] Comment on above: Performed By: #### S URGP #### [facility] (DEFAULT) [address] [place] [address] Urea nitrogen [Mass/Vol] 26 mg/dL High 7-25 [facility] Comment on above: Performed By: #### S URGP #### [facility] (DEFAULT) [address] [place] [address] Urea nitrogen/Creatinine [Mass ratio] 18 mg/mg Normal [facility] Comment on above: Performed By: #### S URGP #### [facility] (DEFAULT) [address] [place] [address] HEAD WITHOUT CONTRASTon 0 08-04-2024 CT [...] sinuses are clear. IMPRESSION: Stable exam. Normal [facility] CT Head WO contraston 2024 RADIOLOGY RADIOLOGY [facility] CT Head WO contrastOrdered B y: Chirag Mendenhall on 08-04-2024 [facility] Work Phone: GLUCOSE POCon 08-04-2024 Glucose [Mass/Vol] 227 mg/dL High 70 - 179 mg/dL [facility] Interpretation and review of laboratory results [facility] Sample Type V[facility] Glucose [Mass/Vol] 235 mg/dL High 70 - 179 mg/dL [facility] Interpretation and review of laboratory results Abnormal [facility] Sample Type VENO [facility] Glucose [Mass/Vol] 215 mg/dL High 70 - 179 mg/dL [facility] Interpretation and review of laboratory results Abnormal [facility] Glucose [Mass/Vol] 178 mg/dL 70 - 179 mg/dL [facility] Glucose [Mass/Vol] 157 mg/dL 70 - 179 mg/dL [facility] Glucose [Mass/Vol] 271 mg/dL High 70 - 179 mg/dL [facility] Glucose [Mass/Vol] 267 mg/dL High 70 - 179 mg/dL [facility] Glucose [Mass/Vol] 246 mg/dL High 70 - 179 mg/dL [facility] IONIZED CALCIUM, WHOLE BLOOD Ordered By: Laura Rodriguez on 08-04-2024 Calcium.ionized (Bld) [Moles/Vol] 4.8 mg/dL 4.60 - 5.30 mg/dL [facility] Interpretation and review of laboratory results Normal [facility] IONIZED CALCIUM, WHOLE BLOOD on 08-04-2024 ICA 4.80 mg/dL Normal 4.60-5.30 [facility] Comment on above: Performed By: #### T YPEC #### [facility] (DEFAULT) [address] [place] [address] MAGNESIUMon 08-04-2024 Magnesium [Mass/Vol] 1.9 mg/dL 1.6 - 2 .6 mg/dL [facility] Magnesium [Mass/Vol] 1.9 mg/dL Normal 1.6-2.6 [facility] Comment on above: Performed By: #### X M #### [facility] (DEFAULT) [address] [place] [address] No Panel Informationon 08-04 POC Sample Type CAPBL [facility] Interpretation and review of laboratory results Abnormal [facility] Interpretation and review of laboratory results Normal [facility] PHOSPHATE, INORGANICon 08-04 Phosphate [Mass/Vol] 2.8 mg/dL 2.2 - 4 .6 mg/dL [facility] Phosphorous 2.8 mg/dL Normal 2.2-4.6 [facility] Comment on above: Performed By: #### X M #### [facility] (DEFAULT) [address] [place] [address] SODIUMon 08-04-2024 Interpretation and review of laboratory results Normal [facility] Sodium [Moles/Vol] 142 mmol/L 135 - 145 mmol/L [facility] Sodium [Moles/Vol] 142 mmol/L Normal 135-145 [facility] Comment on above: Order Comment: While on 3% Hypertonic Saline. Performed By: #### S URGP #### [facility] (DEFAULT) [address] [address] Interpretation and review of laboratory results Normal [facility] Sodium [Moles/Vol] 141 mmol/L 135 - 145 mmol/L [facility] Sodium [Moles/Vol] 141 mmol/L Normal 135-145 [facility] Comment on above: Order Comment: [...] bottle. Performed By: #### B LDCULT #### [facility] (DEFAULT) [address] [address] Interpretation and review of laboratory results Normal [facility] Sodium [Moles/Vol] 143 mmol/L 135 - 145 mmol/L [facility] Sodium [Moles/Vol] 143 mmol/L Normal 135-145 [facility] Comment on above: Order Comment: While on 3% Hypertonic Saline. Performed By: #### H EMO #### [facility] (DEFAULT) [address] [address] ABORH TYPE RECONFIRMATIONon 08-03-2024 ABO/RH(D) TYPE Negative [facility] ABO/RH(D) TYPE Negative Normal [facility] Comment on above: Performed By: #### T YPEC #### [facility] (DEFAULT) [address] [address] CBC,PLATELETSon 08-03-2024 Erythrocyte distribution width (RBC) [Ratio] 13.2 % 10.8 - 14.9 % [facility] Hematocrit (Bld) [Volume fraction] 42.8 % 34.9 - 44.3 % [facility] Hemoglobin (Bld) [Mass/Vol] 13.5 g/dL 11.4 - 15.2 g/dL [facility] Interpretation and review of laboratory results Normal [facility] MCH (RBC) [Entitic mass] 29.2 pg 25.9 - 33.9 pg [facility] MCHC (RBC) [Mass/Vol] 31.5 g/dL 31.4 - 35.9 g/dL [facility] MCV (RBC) [Entitic vol] 92.4 fL 79.6 - 97.7 fL [facility] Platelet mean volume (Bld) [Entitic vol] 11.2 fL 8.5 - 12.2 fL [facility] Platelets (Bld) [#/Vol] 227 10*3/uL 150 - 393 K/uL [facility] RBC (Bld) [#/Vol] 4.63 10*6/uL [facility] WBC (Bld) [#/Vol] 8.43 10*3/uL 3.99 - 11.19 K/uL [facility] Hematocrit (Bld) [Volume fraction] 42.8 % Normal 34.9-44.3 [facility] Comment on above: Performed By: #### X M #### [facility] (DEFAULT) [address] [place] [address] Hemoglobin (Bld) [Mass/Vol] 13.5 g/dL Normal 11.4-15.2 [facility] Comment on above: Performed By: #### X M #### [facility] (DEFAULT) [address] [place] [address] MCV (RBC) [Entitic vol] 92.4 fL Normal 79.6-97.7 O [facility] Comment on above: Performed By: #### X M #### [facility] (DEFAULT) [address] [place] [address] Mean Cell Hgb 29.2 pg Normal 25.9-33.9 [facility] Comment on above: Performed By: #### X M #### [facility] (DEFAULT) [address] [place] [address] Mean Cell Hgb Conc 31.5 g/dL Normal 31.4-35.9 [facility] Comment on above: Performed By: #### X M #### [facility] (DEFAULT) [address] [place] [address] Platelet mean volume (Bld) [Entitic vol] 11.2 fL Normal 8.5-12.2 [facility] Comment on above: Performed By: #### X M #### [facility] (DEFAULT) [address] [address] Platelets (Bld) [#/Vol] 227 10*3/uL Normal 150-393 [facility] Comment on above: Performed By: #### X M #### [facility] (DEFAULT) [address] [address] RBC (Bld) [#/Vol] 4.63 10*6/uL Normal 3.91-5.04 [facility] Comment on above: Performed By: #### X M #### [facility] (DEFAULT) [address] [place] [address] RBC Distribution 13.2 % Normal 10.8-14.9 [facility] Comment on above: Performed By: #### X M #### [facility] (DEFAULT) [address] [place] [address] WBC (Bld) [#/Vol] 8.43 10*3/uL Normal 3.99-11.19 [facility] Comment on above: Performed By: #### X M #### [facility] (DEFAULT) [address] [address] CHEM 7 (LYTES,BUN,CREA,GLUC) on 08-03-2024 Anion gap [Moles/Vol] 16 mmol/L 7 - 17 mmol/L [facility] Chloride [Moles/Vol] 103 mmol/L 98 - 10 8 mmol/L [facility] CO2 [Moles/Vol] 23 mmol/L 21 - 31 mmol/L [facility] Creatinine [Mass/Vol] 1.35 mg/dL High 0.50 - 1.20 mg/dL [facility] eGFR, CKD-EPI, Female 40 Low - PINF [facility] Glucose [Mass/Vol] 151 mg/dL 70 - 179 mg/dL [facility] Interpretation and review of laboratory results Abnormal [facility] Osmolality Calc [Osmolality] 295 [facility] Potassium [Moles/Vol] 4.3 mmol/L 3.5 - 5.0 mmol/L [facility] Sodium [Moles/Vol] 138 mmol/L 135 - 145 mmol/L [facility] Urea nitrogen [Mass/Vol] 18 mg/dL 7 - 25 mg/dL [facility] Urea nitrogen/Creatinine [Mass ratio] 13 mg/mg [facility] Anion gap [Moles/Vol] 16 mmol/L Normal 7-17 [facility] Comment on above: Performed By: #### S URGP #### [facility] (DEFAULT) [address] [address] Chloride [Moles/Vol] 103 mmol/L Normal 98-108 [facility] Comment on above: Performed By: #### S URGP #### [facility] (DEFAULT) [address] [place] [address] CO2 [Moles/Vol] 23 mmol/L Normal 21-31 [facility] Comment on above: Performed By: #### S URGP #### [facility] (DEFAULT) [address] [place] [address] Creatinine [Mass/Vol] 1.35 mg/dL High 0.50-1.20 [facility] Comment on above: Performed By: #### S URGP #### [facility] (DEFAULT) [address] [place] [address] GFR/1.73 sq M.predicted among non-blacks MDRD (S/P/Bld) [Vol rate/Area] 40 mL/min/{1.73_m2} Low >=60 [facility] Comment on above: Result Comment: Repo rted eGFR is based on the CKD-EPI 2020 equation using creatinine, age, and sex. Performed By: #### S URGP #### [facility] (DEFAULT) [address] [place] [address] Glucose [Mass/Vol] 151 mg/dL Normal Nonfastin -179 mg/dL; Fastin-99 [facility] Comment on above: Performed By: #### S URGP #### [facility] (DEFAULT) [address] [place] [address] Osmolality [Osmolality] 295 mosm/kg Normal 278-305 [facility] Comment on above: Performed By: #### S URGP #### [facility] (DEFAULT) [address] [place] [address] Potassium [Moles/Vol] 4.3 mmol/L Normal 3.5-5.0 [facility] Comment on above: Result Comment: Spec imen slightly hemolyzed. Potassium results may be falsey elevated by more than 0.5 mmol/L. Consider recollection. Performed By: #### S URGP #### [facility] (DEFAULT) [address] [place] [address] Sodium [Moles/Vol] 138 mmol/L Normal 135-145 [facility] Comment on above: Performed By: #### S URGP #### [facility] (DEFAULT) [address] [address] Urea nitrogen [Mass/Vol] 18 mg/dL Normal 7-25 [facility] Comment on above: Performed By: #### S URGP #### [facility] (DEFAULT) [address] [place] [address] Urea nitrogen/Creatinine [Mass ratio] 13 mg/mg Normal [facility] Comment on above: Performed By: #### S URGP #### [facility] (DEFAULT) [address] [place] [address] CT CHEST WITH CONTRAST STANLEY KENYONon 08-03-2024 CT CHEST WITH CONTRAST VASCULAR TRAUMA [...] have reviewed and approved this report. Normal [facility] CT Cervical spine WO contras ton 08-03-2024 RADIOLOGY RADIOLOGY [facility] CT Cervical spine WO contras tOrdered By: Alissa Chun on 08-03-2024 [facility] Work Phone: CT Chest W contrast Seth RADIOLOGY RADIOLOGY [facility] CT Chest W contrast IVOrdere d By: Kayla Newell on 08-03-2024 [facility] Work Phone: CT HEAD WITHOUT CONTRASTon 0 [...] since the MRI from earlier today Normal [facility] CT Head WO contraston 2024 Radiology Study observation (narrative) [facility] RADIOLOGY RADIOLOGY [facility] Radiology Study observation (narrative) [facility] CT ORBITS WITHOUT CONTRASTon 08-03-2024 CT ORBITS [...] basal ganglia hyperdensity concerning for hemorrhage. Normal [facility] CT Orbit WO contraston 08-03 [facility] SPINE CERVICAL WITHOUT CO NTRASTon 08-03-2024 [...] No evidence of acute fractures identified Normal [facility] EXTRA MICROon 08-03-2024 [facility] GLUCOSE POCon 08-03-2024 Glucose [Mass/Vol] 161 mg/dL 70 - 179 mg/dL [facility] POC Sample Type CAPBL [facility] IONIZED CALCIUM, WHOLE BLOOD Ordered By: Alejandra Ness on 08-03-2024 Calcium.ionized (Bld) [Moles/Vol] 4.24 mg/dL Low 4.60 - 5.30 mg/dL [facility] Interpretation and review of laboratory results Abnormal [facility] IONIZED CALCIUM, WHOLE BLOOD on 08-03-2024 ICA 4.24 mg/dL Low 4.60-5.30 [facility] Comment on above: Performed By: #### H [facility] #### [facility] (DEFAULT) [address] [place] [address] MAGNESIUMon 08-03-2024 Magnesium [Mass/Vol] 2.1 mg/dL 1.6 - 2 .6 mg/dL [facility] Magnesium [Mass/Vol] 2.1 mg/dL Normal 1.6-2.6 [facility] Comment on above: Performed By: #### S URGP #### [facility] (DEFAULT) [address] [place], [place] [id number] MR Brain WO contraston 08-03 RADIOLOGY RADIOLOGY [facility] Radiology Study observation (narrative) [facility] MR Cervical spine WO contras ton 08-03-2024 RADIOLOGY RADIOLOGY [facility] Radiology Study observation (narrative) [facility] MR Cervical spine WO contras tOrdered By: Kuldeep Tavares on 08-03-2024 [facility] Work Phone: MRI BRAIN WITHOUT CONTRASTon 08-03-2024 [...] tiny 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 Normal [facility] MRI SPINE CERVICAL WITHOUT C ONTRASTon [...] have reviewed and approved this report. Normal [facility] NT-PRO B-TYPE NATRIURETIC PE PTIDEon 08-03-2024 Interpretation and review of laboratory results Abnormal [facility] Natriuretic peptide.B prohormone N-Terminal IA [Mass/Vol] 1115 pg/mL High NINF - 540 pg/mL [facility] No Panel Informationon 08-03 RADIOLOGY RADIOLOGY [facility] Interpretation and review of laboratory results Normal [facility] No Panel InformationOrdered By: Richard Sánchez on 08-03-2024 [facility] Work Phone: PHOSPHATE, INORGANICon 08-03 Phosphate [Mass/Vol] 3.5 mg/dL 2.2 - 4 .6 mg/dL [facility] Phosphorous 3.5 mg/dL Normal 2.2-4.6 [facility] Comment on above: Performed By: #### S URGP #### [facility] (DEFAULT) [address] [place] [address] SCREEN: MRSA/MSSAOrdered By: Gail Collado on 08-03-2024 Interpretation and review of laboratory results Normal [facility] Methicillin Resistant S. Aureus By Pcr Negative Negative [facility] Staphylococcus Aureus By Pcr Negative Negative [facility] SODIUMon 08-03-2024 Interpretation and review of laboratory results Normal [facility] Sodium [Moles/Vol] 139 mmol/L 135 - 145 mmol/L [facility] Sodium [Moles/Vol] 139 mmol/L Normal 135-145 [facility] Comment on above: Order Comment: While on 3% Hypertonic Saline. Performed By: #### N AO ####[facility] (DEFAULT)[address] [place] [address] Interpretation and review of laboratory results Abnormal [facility] Sodium [Moles/Vol] 134 mmol/L Low 135 - 145 mmol/L [facility] Sodium [Moles/Vol] 134 mmol/L Low 135-145 [facility] Comment on above: Order Comment: While on 3% Hypertonic Saline. Performed By: #### [facility] #### [facility] (DEFAULT) [address] [place] [address] XR ABDOMEN 1 VIEW PORTABLEon 08-03-2024 XR [...] proximal second portion of the duodenum. Normal [facility] XR Abdomen Single viewon RADIOLOGY RADIOLOGY [facility] Radiology Study observation (narrative) [facility] XR Abdomen Single viewOrdere d By: Huey Gibson on 08-03-2024 [facility] XR ELBOW RIGHT 2 VIEWSon XR ELBOW RIGHT 2 VIEWS EXAM: XR ELBOW RI GHT 2 VIEWS, XR HUMERUS RIGHT 2+ VIEWS, XR WRIST RIGHT 3+ VIEWS, 08/02/2024 23:24 PM (accession [id number]), 08/02/2024 23:24 PM (accession [id number]), 08/02/2024 23:23 PM (accession [id number]) COMPARISON: No prior studies available for comparison. [...] dislocation. IMPRESSION: No acute osseous abnormality. Normal [facility] XR HUMERUS RIGHT 2+ VIEWSon 08-03-2024 XR HUMERUS RIGHT 2+ VIEWS EXAM: XR ELBOW RIGHT 2 VIEWS, XR HUMERUS RIGHT 2+ VIEWS, XR WRIST RIGHT 3+ VIEWS, 08/02/2024 23:24 PM (accession [id number]), 08/02/2024 23:24 PM (accession [id number]), 08/02/2024 23:23 PM (accession [id number]) COMPARISON: No prior studies available for comparison. [...] dislocation. IMPRESSION: No acute osseous abnormality. Normal [facility] XR WRIST RIGHT 3+ VIEWSon XR WRIST RIGHT 3+ VIEWS EXAM: XR ELBOW R IGHT 2 VIEWS, XR HUMERUS RIGHT 2+ VIEWS, XR WRIST RIGHT 3+ VIEWS, 08/02/2024 23:24 PM (accession [id number]), 08/02/2024 23:24 PM (accession [id number]), 08/02/2024 23:23 PM (accession [id number]) COMPARISON: No prior studies available for comparison. [...] dislocation. IMPRESSION: No acute osseous abnormality. Normal [facility] 12 Lead EKGon 08-02-2024 12 Lead EKG [facility] [address] [place] [address] 12 Lead EKG 08/02/24 1309 MR#: [id number] Acct: [id number] Name: LINDSAY ACUNA Rep #: [id number] : 1945 78 From: Mj Benavides MD [...] T wave abnormality Abnormal ECG Confirmed by MJ BENAVIDES MD ([id number]), food editor NAIMA BEARDEN ([id number]) on 08/05/2024 6:47:07 AM Referred By: Confirmed By: MJ BENAVIDES MD 08/05/24 0647 Date Mj Benavides MD CC: Dr. Pieter Morgan MD; Dr. Kameron Caruso MD Signed Normal [facility] Absolute lymphocyte countOrd ered By: Pieter Morgan on 08-02-2024 Lymphocytes Auto (Unsp spec) [#/Vol] 1.56 10*3/uL 0.83-4.51 [facility] Absolute neutrophil countOrd ered By: Pieter Morgan on 08-02-2024 Neutrophils (Bld) [#/Vol] 6.2 10*3/uL 2.0-7.7 [facility] Activated partial thrombopla stin time (aPTT) in platelet poor plasma by coagulation aOrdered By: Pieter Morgan on 08-02-2024 aPTT Coag (PPP) [Time] 28.4 s 24.1-36.2 [facility] Anion gap in Serum or Plasma Ordered By: Pieter Morgan on 08-02-2024 Anion gap [Moles/Vol] 12 mmol/L 5-15 [facility] Automated lymphocyte count a s percentage of total leukocytesOrdered By: Pieter Morgan on 08-02-2024 Lymphocytes/100 WBC Auto (Unsp spec) 17.9 % Low 19-41 [facility] BUN/creatinine ratioOrdered By: Pieter Morgan on 08-02-2024 Urea nitrogen/Creatinine [Mass ratio] 11.6 mg/mg 10- [facility] Basic Metabolic Profile (BMP )on 08-02-2024 BUN/CRE 11.6 RATIO Normal - [facility] Comment on above: Performed By: #### L 300.4310, L501.4021, L300.3900, L500.2500, L100.0100 #### [facility] [address] [place], [address] Calcium [Mass/Vol] 9.0 mg/dL Normal 7.6-11.0 [facility] Comment on above: Performed By: #### L 300.4310, L501.4021, L300.3900, L500.2500, L100.0100 #### [facility] [address] [place], [address] Chloride [Moles/Vol] 98 mmol/L Normal 98-108 [facility] Comment on above: Performed By: #### L 300.4310, L501.4021, L300.3900, L500.2500, L100.0100 #### [facility] [address] [place], [address] CO2 [Moles/Vol] 22.0 mmol/L Normal 21.0-32.0 [facility] Comment on above: Performed By: #### L 300.4310, L501.4021, L300.3900, L500.2500, L100.0100 #### [facility] [address] [place], [address] Creatinine [Mass/Vol] 1.74 mg/dL High 0.70-1.20 [facility] Comment on above: Performed By: #### L 300.4310, L501.4021, L300.3900, L500.2500, L100.0100 #### [facility] [address] [place], [address] ECRCL 27.14 ml/min Low 50-250 [facility] Comment on above: Performed By: #### L 300.4310, L501.4021, L300.3900, L500.2500, L100.0100 #### [facility] [address] [place], [address] GAP 12 Normal 5-15 [facility] Comment on above: Performed By: #### L 300.4310, L501.4021, L300.3900, L500.2500, L100.0100 #### [facility] [address] [place], [address] GFR/1.73 sq M.predicted among non-blacks MDRD (S/P/Bld) [Vol rate/Area] 29 mL/min/{1.73_m2} Low >60 [facility] Comment on above: Result Comment: mL/m in/1.73m2 CKD-EPI Creatinine Equation (2020) Performed By: #### L 300.4310, L501.4021, L300.3900, L500.2500, L100.0100 #### [facility] [address] [place], [address] Glucose [Mass/Vol] 235 mg/dL High 70-99 [facility] Comment on above: Performed By: #### L 300.4310, L501.4021, L300.3900, L500.2500, L100.0100 #### [facility] [address] [place], [address] Potassium [Moles/Vol] 4.2 mmol/L Normal 3.3-5.1 [facility] Comment on above: Performed By: #### L 300.4310, L501.4021, L300.3900, L500.2500, L100.0100 #### [facility] [address] [place], [address] Sodium [Moles/Vol] 132 mmol/L Low 133-145 [facility] Comment on above: Performed By: #### L 300.4310, L501.4021, L300.3900, L500.2500, L100.0100 #### [facility] [address] [place], [address] Urea nitrogen [Mass/Vol] 20 mg/dL High 4-19 [facility] Comment on above: Performed By: #### L 300.4310, L501.4021, L300.3900, L500.2500, L100.0100 #### [facility] [address] [place], [address] Basophil percentageOrdered B y: Pieter Morgan on 08-02-2024 Basophils/100 WBC (Bld) 0.5 % 0-1 [facility] CBC W/Diff, Automatedon - Absolute Lymph 1.56 X10 3/uL Normal 0.83-4.51 [facility] Comment on above: Performed By: #### L 300.4310, L501.4021, L300.3900, L500.2500, L100.0100 #### [facility] [address] [place], [address] Absolute Neut 6.2 X10 3/uL Normal 2.0-7.7 [facility] Comment on above: Performed By: #### L 300.4310, L501.4021, L300.3900, L500.2500, L100.0100 #### [facility] [address] [place], [address] Basophils/100 WBC (Bld) 0.5 % Normal 0-1 [facility] Comment on above: Performed By: #### L 300.4310, L501.4021, L300.3900, L500.2500, L100.0100 #### [facility] [address] [place], [address] Eosinophils/100 WBC (Bld) 1.0 % Normal 0-5 [facility] Comment on above: Performed By: #### L 300.4310, L501.4021, L300.3900, L500.2500, L100.0100 #### [facility] [address] [place], [address] Erythrocyte distribution width (RBC) [Ratio] 13.3 % Normal 11.6-14.6 [facility] Comment on above: Performed By: #### L 300.4310, L501.4021, L300.3900, L500.2500, L100.0100 #### [facility] [address] [place], [address] Hematocrit (Bld) [Volume fraction] 42.0 % Normal 37-47 [facility] Comment on above: Performed By: #### L 300.4310, L501.4021, L300.3900, L500.2500, L100.0100 #### [facility] [address] [place], [address] Hemoglobin (Bld) [Mass/Vol] 13.8 g/dL Normal 12.0-15.0 [facility] Comment on above: Performed By: #### L 300.4310, L501.4021, L300.3900, L500.2500, L100.0100 #### [facility] [address] [place], [address] IG% 0.300 Normal 0.0-0.9 [facility] Comment on above: Result Comment: IG% - Immature Granulocytes (promyelocytes, myelocytes and metamyelocytes) > 1% indicates that a LEFT SHIFT is Present. Performed By: #### L 300.4310, L501.4021, L300.3900, L500.2500, L100.0100 #### [facility] [address] [place], [address] Lymphocytes/100 WBC (Bld) 17.9 % Low 19-41 [facility] Comment on above: Performed By: #### L 300.4310, L501.4021, L300.3900, L500.2500, L100.0100 #### [facility] [address] [place], [address] MCH (RBC) [Entitic mass] 30.3 pg Normal 27.0-32.0 [facility] Comment on above: Performed By: #### L 300.4310, L501.4021, L300.3900, L500.2500, L100.0100 #### [facility] [address] [place], [address] MCHC (RBC) [Mass/Vol] 32.9 g/dL Normal 32-36 [facility] Comment on above: Performed By: #### L 300.4310, L501.4021, L300.3900, L500.2500, L100.0100 #### [facility] [address] [place], [address] MCV (RBC) [Entitic vol] 92.1 fL Normal 81-99 [facility] Comment on above: Performed By: #### L 300.4310, L501.4021, L300.3900, L500.2500, L100.0100 #### [facility] [address] [place], [address] Monocytes/100 WBC (Bld) 8.9 % Normal 0-10 [facility] Comment on above: Performed By: #### L 300.4310, L501.4021, L300.3900, L500.2500, L100.0100 #### [facility] [address] [place], [address] Neutrophils/100 WBC (Bld) 71.4 % High 47-70 [facility] Comment on above: Performed By: #### L 300.4310, L501.4021, L300.3900, L500.2500, L100.0100 #### [facility] [address] [place], [address] Nucleated RBC (Bld) [#/Vol] 0 10*3/uL Normal 0-5 [facility] Comment on above: Performed By: #### L 300.4310, L501.4021, L300.3900, L500.2500, L100.0100 #### [facility] [address] [place], [address] Platelet mean volume (Bld) [Entitic vol] 10.7 fL Normal 6.2-12.0 [facility] Comment on above: Performed By: #### L 300.4310, L501.4021, L300.3900, L500.2500, L100.0100 #### [facility] [address] [place], [address] Platelets (Bld) [#/Vol] 214 10*3/uL Normal 150-450 [facility] Comment on above: Performed By: #### L 300.4310, L501.4021, L300.3900, L500.2500, L100.0100 #### [facility] [address] [place], [address] RBC (Bld) [#/Vol] 4.56 10*6/uL Normal 4.2-5.4 [facility] Comment on above: Performed By: #### L 300.4310, L501.4021, L300.3900, L500.2500, L100.0100 #### [facility] [address] [place], [address] RDW SD 45.3 fl High 35.1-43.9 [facility] Comment on above: Performed By: #### L 300.4310, L501.4021, L300.3900, L500.2500, L100.0100 #### [facility] [address] [place], [address] WBC (Bld) [#/Vol] 8.7 10*3/uL Normal 4.4-11.0 [facility] Comment on above: Performed By: #### L 300.4310, L501.4021, L300.3900, L500.2500, L100.0100 #### [facility] [address] [place], [address] CBC,PLATELETSon 08-02-2024 Erythrocyte distribution width (RBC) [Ratio] 13.3 % 10.8 - 14.9 % [facility] Hematocrit (Bld) [Volume fraction] 43.8 % 34.9 - 44.3 % [facility] Hemoglobin (Bld) [Mass/Vol] 14 g/dL 11.4 - 15.2 g/dL [facility] Interpretation and review of laboratory results Normal [facility] MCH (RBC) [Entitic mass] 29.4 pg 25.9 - 33.9 pg [facility] MCHC (RBC) [Mass/Vol] 32 g/dL 31.4 - 35.9 g/dL [facility] MCV (RBC) [Entitic vol] 92 fL 79.6 - 97.7 fL [facility] Platelet mean volume (Bld) [Entitic vol] 10.8 fL 8.5 - 12.2 fL [facility] Platelets (Bld) [#/Vol] 245 10*3/uL 150 - 393 K/uL [facility] RBC (Bld) [#/Vol] 4.76 10*6/uL [facility] WBC (Bld) [#/Vol] 8.16 10*3/uL 3.99 - 11.19 K/uL [facility] Hematocrit (Bld) [Volume fraction] 43.8 % Normal 34.9-44.3 [facility] Comment on above: Performed By: #### B LDCULT #### [facility] (DEFAULT) [address] [place] [address] Hemoglobin (Bld) [Mass/Vol] 14.0 g/dL Normal 11.4-15.2 [facility] Comment on above: Performed By: #### B LDCULT #### [facility] (DEFAULT) [address] [place] [address] MCV (RBC) [Entitic vol] 92.0 fL Normal 79.6-97.7 [facility] Comment on above: Performed By: #### B LDCULT #### [facility] (DEFAULT) [address] [place] [address] Mean Cell Hgb 29.4 pg Normal 25.9-33.9 [facility] Comment on above: Performed By: #### B LDCULT #### [facility] (DEFAULT) [address] [place] [address] Mean Cell Hgb Conc 32.0 g/dL Normal 31.4-35.9 [facility] Comment on above: Performed By: #### B LDCULT #### [facility] (DEFAULT) [address] [place] [address] Platelet mean volume (Bld) [Entitic vol] 10.8 fL Normal 8.5-12.2 [facility] Comment on above: Performed By: #### B LDCULT #### [facility] (DEFAULT) [address] [place] [address] Platelets (Bld) [#/Vol] 245 10*3/uL Normal 150-393 [facility] Comment on above: Performed By: #### B LDCULT #### [facility] (DEFAULT) [address] [place] [address] RBC (Bld) [#/Vol] 4.76 10*6/uL Normal 3.91-5.04 [facility] Comment on above: Performed By: #### Roby LDCULT #### [facility] (DEFAULT) [address] [place] [address] RBC Distribution 13.3 % Normal 10.8-14.9 [facility] Comment on above: Performed By: #### B LDCULT #### [facility] (DEFAULT) [address] [place] [address] WBC (Bld) [#/Vol] 8.16 10*3/uL Normal 3.99-11.19 [facility] Comment on above: Performed By: #### B LDCULT #### [facility] (DEFAULT) [address] [place] [address] CHEM 7 (LYTES,BUN,CREA,GLUC) on 08-02-2024 Anion gap [Moles/Vol] 16 mmol/L 7 - 17 mmol/L [facility] Chloride [Moles/Vol] 105 mmol/L 98 - 10 8 mmol/L [facility] CO2 [Moles/Vol] 22 mmol/L 21 - 31 mmol/L [facility] Creatinine [Mass/Vol] 1.37 mg/dL High 0.50 - 1.20 mg/dL [facility] eGFR, CKD-EPI, Female 39 Low - PINF [facility] Glucose [Mass/Vol] 210 mg/dL High 70 - 179 mg/dL [facility] Osmolality Calc [Osmolality] 299 [facility] Potassium [Moles/Vol] 3.7 mmol/L 3.5 - 5.0 mmol/L [facility] Sodium [Moles/Vol] 139 mmol/L 135 - 145 mmol/L [facility] Urea nitrogen [Mass/Vol] 18 mg/dL 7 - 25 mg/dL [facility] Urea nitrogen/Creatinine [Mass ratio] 13 mg/mg [facility] Anion gap [Moles/Vol] 16 mmol/L Normal 7-17 [facility] Comment on above: Performed By: #### [facility] #### [facility] (DEFAULT) [address] [address] Chloride [Moles/Vol] 105 mmol/L Normal 98-108 [facility] Comment on above: Performed By: #### [facility] #### [facility] (DEFAULT) [address] [address] CO2 [Moles/Vol] 22 mmol/L Normal 21-31 [facility] Comment on above: Performed By: #### [facility] #### [facility] (DEFAULT) [address] [address] Creatinine [Mass/Vol] 1.37 mg/dL High 0.50-1.20 [facility] Comment on above: Performed By: #### [facility] #### [facility] (DEFAULT) [address] [address] GFR/1.73 sq M.predicted among non-blacks MDRD (S/P/Bld) [Vol rate/Area] 39 mL/min/{1.73_m2} Low >=60 [facility] Comment on above: Result Comment: Repo rted eGFR is based on the CKD-EPI 2020 equation using creatinine, age, and sex. Performed By: #### H EMO #### [facility] (DEFAULT) [address] [place] [address] Glucose [Mass/Vol] 210 mg/dL High Nonfastin -179 mg/dL; Fastin-99 [facility] Comment on above: Performed By: #### H EMOGC #### [facility] (DEFAULT) [address] [place] [address] Osmolality [Osmolality] 299 mosm/kg Normal 278-305 [facility] Comment on above: Performed By: #### H EMO #### [facility] (DEFAULT) [address] [place] [address] Potassium [Moles/Vol] 3.7 mmol/L Normal 3.5-5.0 [facility] Comment on above: Performed By: #### H EMO #### [facility] (DEFAULT) [address] [place] [address] Sodium [Moles/Vol] 139 mmol/L Normal 135-145 [facility] Comment on above: Performed By: #### H EMO #### [facility] (DEFAULT) [address] [place] [address] Urea nitrogen [Mass/Vol] 18 mg/dL Normal 7-25 [facility] Comment on above: Performed By: #### H EMO #### [facility] (DEFAULT) [address] [place] [address] Urea nitrogen/Creatinine [Mass ratio] 13 mg/mg Normal [facility] Comment on above: Performed By: #### H EMOGC #### [facility] (DEFAULT) [address] [place] [address] ABDOMEN/PELVIS WITH CONTR AST VASCULAR TRAUMAon [...] grade: None. Kidney trauma grade: None. Normal [facility] CT Abdomen and Pelvis W cont rast Seth 08-02-20[address] [facility] Pelvis W cont rast IVOrdered By: Edson Head on 08-02-2024 [facility] Work Phone: CT Cervical spine WO contras ton 08-02-2024 Radiology Study observation (narrative) [facility] CT Orbit WO contraston 08-02 Radiology Study observation (narrative) [facility] Carbon dioxide, total [Moles /volume] in Central venous bloodOrdered By: Pieter Morgan on 08-02-2024 CO2 [Moles/Vol] 22.0 mmol/L 21.0-32.0 [facility] Chloride assayOrdered By: Racheal Morgan on 08-02-2024 Chloride [Moles/Vol] 98 mmol/L 98-108 [facility] Emergency Department Summary on 08-02-2024 Emergency Department Summary [facility] Medical Records Department [address] [place] [address] Emergency Department Summary 08/02/24 MR#: [id number] Acct: [id number] Name: LINDSAY ACUNA Rep #: [id number] : [id number] 78 From: Pieter Morgan MD [...] the EMR. states they returned home from [facility] about 1.5-2 weeks ago, and they both had colds. He is better, but she is "on round 2." [facility] Medical History Paroxysmal atrial fibrillation with RVR [...] normal respir (more content not included)... Normal [facility] Eosinophil percentageOrdered By: Pieter Morgan on 08-02-2024 Eosinophils/100 WBC (Bld) 1.0 % 0-5 [facility] Erythrocyte distribution wid th ratioOrdered By: Pieter Morgan on 08-02-2024 Erythrocyte distribution width (RBC) [Ratio] 13.3 % 11.6-14.6 [facility] Erythrocyte distribution wid th standard deviationOrdered By: Pieter Morgan on 08-02-2024 Erythrocyte distribution width (RBC) [Entitic vol] 45.3 fL High 35.1-43.9 [facility] Erythrocyte distribution width (RBC) [Ratio] 45.3 fl High 35.1-43.9 [facility] Estimation of creatinine mackenzie aranceOrdered By: Pieter Morgan on 08-02-2024 Estimated Creatinine Clearance Calc 27.14 ml/min Low 50-250 [facility] GFR/1.73 sq M.predicted lana g non-blacks MDRD (S/P/Bld) [Vol rate/Area]Ordered By: Pieter Morgan on 08-02-2024 Estimated GFR (MDRD) Non-Af Amer 29 Low >60 [facility] Comment on above: mL/min/1.73m2 CKD-EP I Creatinine Equation (2020) Glomerular filtration rate ( GFR) estimation/1.73 sq m using serum, plasma, or whole bOrdered By: Pieter Morgan on 08-02-2024 GFR/1.73 sq M.predicted among non-blacks MDRD (S/P/Bld) [Vol rate/Area] 29 mL/min/{1.73_m2} Low >60 [facility] Comment on above: mL/min/1.73m2 CKD-EP I Creatinine Equation (2020) HEMOGLOBIN A1Con 08-02-2024 Average glucose Estimated from glycated hemoglobin (Bld) [Mass/Vol] 177 mg/dL [facility] HbA1c (Bld) [Mass fraction] 7.8 % High 4.7 - 5.6 % [facility] Interpretation and review of laboratory results Abnormal [facility] Glucose [Mass/Vol] 177 mg/dL Normal [facility] Comment on above: Performed By: #### [facility] #### [facility] (DEFAULT) [address] [place] [address] Hemoglobin A1C HPLC 7.8 % High 4.7-5.6 [facility] Comment on above: Performed By: #### [facility] #### [facility] (DEFAULT) [address] [place] [address] HEPATIC FUNCTION PANELon Albumin [Mass/Vol] 3.5 g/dL 3.5 - 5.0 g/dL [facility] ALP [Catalytic activity/Vol] 117 U/L 32 - 126 U/L [facility] ALT [Catalytic activity/Vol] 10 U/L 9 - 48 U/L [facility] AST [Catalytic activity/Vol] 17 U/L 10 - 39 U/L [facility] Bilirubin [Mass/Vol] 0.6 mg/dL NINF - 1.5 mg/dL [facility] Bilirubin.direct [Mass/Vol] 0.1 mg/dL NINF - 0.3 mg/dL [facility] Protein [Mass/Vol] 6.3 g/dL Low 6.4 - 8.3 g/dL [facility] Albumin [Mass/Vol] 3.5 g/dL Normal 3.5-5.0 [facility] Comment on above: Performed By: #### H EMOGC #### [facility] (DEFAULT) [address] [place] [address] ALP [Catalytic activity/Vol] 117 U/L Normal 32-126 [facility] Comment on above: Performed By: #### H EMOGC #### [facility] (DEFAULT) [address] [place] [address] ALT [Catalytic activity/Vol] 10 U/L Normal 9-48 [facility] Comment on above: Performed By: #### H EMOGC #### [facility] (DEFAULT) [address] [place] [address] AST [Catalytic activity/Vol] 17 U/L Normal 10-39 [facility] Comment on above: Performed By: #### H EMOGC #### [facility] (DEFAULT) [address] [place] [address] Bilirubin [Mass/Vol] 0.6 mg/dL Normal <1.5 [facility] Comment on above: Performed By: #### H EMOGC #### [facility] (DEFAULT) [address] [place] [address] Bilirubin.indirect [Mass/Vol] 0.1 mg/dL Normal <0.3 [facility] Comment on above: Performed By: #### H EMOGC #### [facility] (DEFAULT) [address] [place] [address] Protein [Mass/Vol] 6.3 g/dL Low 6.4-8.3 [facility] Comment on above: Performed By: #### H EMOGC #### [facility] (DEFAULT) [address] [place] [address] HIGH SENSITIVITY TROPONIN I - SINGLE ORDERon 08-02-2024 Interpretation and review of laboratory results Normal [facility] Troponin I.cardiac High sensitivity method [Mass/Vol] 9 ng/L NINF - 34 ng/L [facility] hs-Troponin I 9 ng/L Normal <34 [facility] Comment on above: Order Comment: 2 [...] bottle. Performed By: #### B LDCULT #### [facility] (DEFAULT) [address] [place] [address] Hematocrit Auto (Bld) [Volum e fraction]Ordered By: Pieter Morgan on 08-02-2024 Hematocrit (Bld) [Volume fraction] 42.0 % 37-47 [facility] Hemoglobin measurementOrdere d By: Pieter Morgan on 08-02-2024 Hemoglobin (Bld) [Mass/Vol] 13.8 g/dL 12.0-15.0 [facility] Immature granulocytes/100 WB C Auto (Bld)Ordered By: Pieter Morgan on 08-02-2024 Immature granulocytes/100 WBC (Bld) 0.300 % 0.0-0.9 [facility] Comment on above: IG% - Immature Granu locytes (promyelocytes, myelocytes and metamyelocytes) > 1% indicates that a LEFT SHIFT is Present. Influenza virus A and B and SARS-CoV-2 (COVID-19) and Respiratory syncytial virus RNAOrdered By: Pieter Morgan on 08-02-2024 SARS-CoV-2 (COVID-19) RNA CHUCKY+probe Ql (Unsp spec) [facility] [employer] normalized rat io (INR) calculationOrdered By: Pieter Morgan on 08-02-2024 INR Coag (Bld) [Relative time] 1.1 {INR} [facility] L499.0042on 08-02-2024 Trop T High Sen Normal <=14 [facility] Comment on above: Result Comment: Canc elled via OM: Order cancelled - Patient discharged Performed By: #### L 499.0042 #### [facility] [address] [place], [address] L499.0043on 08-02-2024 Trop T High Sen Normal <=14 [facility] Comment on above: Result Comment: Canc elled via OM: Order cancelled - Patient discharged Performed By: #### L 499.0043 #### [facility] [address] [place], [address] L501.4021on 08-02-2024 Trop T High Sen 38 ng/L High <=14 [facility] Comment on above: Performed By: #### L 300.4310, L501.4021, L300.3900, L500.2500, L100.0100 ####[facility] [address] [place], [place], [address] LIPID PANEL WITH REFLEX TO M EASURED LDLon 08-02-2024 Cholesterol [Mass/Vol] 141 mg/dL NINF - 200 mg/dL [facility] Cholesterol in HDL [Mass/Vol] 38 mg/dL Low 40 - PINF mg/dL [facility] Cholesterol in LDL [Mass/Vol] 84 mg/dL 0 - 99 mg/dL [facility] Cholesterol non HDL [Mass/Vol] 103 mg/dL NINF - 130 mg/dL [facility] Cholesterol.total/Alta sterol in HDL [Mass ratio] 3.7 {ratio} NINF - 4.5 [facility] Triglyceride [Mass/Vol] 96 mg/dL NINF - 150 mg/dL [facility] Calculated LDL Cholesterol 84 mg/dL Normal 0-99 [facility] Comment on above: Result Comment: [<10 0 mg/dL: Optimal] [100-129 mg/dL: Near Optimal] [130-159 mg/dL: Borderline High] [160-189 mg/dL: High] [>189 mg/dL: Very High] Performed By: #### [facility] #### [facility] (DEFAULT) [address] [place] [address] Cholesterol [Mass/Vol] 141 mg/dL Normal <200 [facility] Comment on above: Result Comment: [<20 0 mg/dL: Desirable] [200-239 mg/dL: Borderline High] [>239 mg/dL: High] Performed By: #### H EMOGC #### [facility] (DEFAULT) [address] [place] [address] Cholesterol in HDL [Mass/Vol] 38 mg/dL Low >=40 [facility] Comment on above: Result Comment: [<40 mg/dL: Low (High Risk)] [>59 mg/dL: High (Low Risk)] Performed By: #### H EMOGC #### [facility] (DEFAULT) [address] [place] [address] Non HDL Cholesterol 103 mg/dL Normal <130 [facility] Comment on above: Performed By: #### H EMOGC #### [facility] (DEFAULT) [address] [place] [address] Total Cholesterol/HDL Ratio 3.7 Normal <4.5 [facility] Comment on above: Performed By: #### H EMOGC #### [facility] (DEFAULT) [address] [place] [address] Triglyceride [Mass/Vol] 96 mg/dL Normal <150 [facility] Comment on above: Result Comment: [<15 0 mg/dL: Desirable] [150-199 mg/dL: Borderline] [200-499 mg/dL: High] [>500 mg/dL: Very High] Performed By: #### H EMOGC #### [facility] (DEFAULT) [address] [place] [address] Lymphocytes Auto (Unsp spec) [#/Vol]Ordered By: Pieter Morgan on 08-02-2024 Lymphocytes (Bld) [#/Vol] 1.56 10*3/uL 0.83-4.51 [facility] Lymphocytes/100 WBC Auto (Un sp spec)Ordered By: Pieter Morgan on 08-02-2024 Lymphocytes/100 WBC (Bld) 17.9 % Low 19-41 [facility] M100.678on 08-02-2024 M100.678 Pending SARS-CoV-2 (COVID 19) Negative INFLUENZA A Negative INFLUENZA B Negative RSV PCR Negative Normal [facility] Comment on above: Performed By: #### M 100.678 ####[facility] [address] [place], [address] MAGNESIUMon 08-02-2024 Magnesium [Mass/Vol] 1.2 mg/dL Low 1.6 - 2 .6 mg/dL [facility] Magnesium [Mass/Vol] 1.2 mg/dL Low 1.6-2.6 [facility] Comment on above: Performed By: #### [facility] #### [facility] (DEFAULT) [address] [place] [address] MCV (mean corpuscular volume ) determinationOrdered By: Pieter Morgan on 08-02-2024 MCV (RBC) [Entitic vol] 92.1 fL 81-99 [facility] Mean corpuscular hemoglobin (MCH) determinationOrdered By: Pieter Morgan on 08-02-2024 MCH (RBC) [Entitic mass] 30.3 pg 27.0-32.0 [facility] Mean corpuscular hemoglobin concentration (MCHC) determinationOrdered By: Pieter Morgan on 08-02-2024 MCHC (RBC) [Mass/Vol] 32.9 g/dL 32-36 [facility] Mean platelet volume determi nationOrdered By: Pieter Morgan on 08-02-2024 Platelet mean volume (Bld) [Entitic vol] 10.7 fL 6.2-12.0 [facility] Monocyte percentageOrdered B y: Pieter Morgan on 08-02-2024 Monocytes/100 WBC (Bld) 8.9 % 0-10 [facility] NT-PRO B-TYPE NATRIURETIC PE PTIDEon 08-02-2024 Natriuretic peptide B (Bld) [Mass/Vol] 1115 pg/mL High <=540 [facility] Comment on above: Performed By: #### H EMO #### [facility] (DEFAULT) [address] [place] [address] Neutrophil percentageOrdered By: Pieter Morgan on 08-02-2024 Neutrophils/100 WBC (Bld) 71.4 % High 47-70 [facility] No Panel Informationon 08-02 Radiology Study observation (narrative) [facility] Interpretation and review of laboratory results [facility] No Panel InformationOrdered By: Pieter Morgan on 08-02-2024 Troponin T High Sensitivity 38 ng/L High <14 [facility] Nucleated red blood cell per centageOrdered By: Pieter Morgan on 08-02-2024 Nucleated RBC/100 WBC (Bld) [Ratio] 0 % 0-5 [facility] PT,INR,PTTon 08-02-2024 aPTT Coag (PPP) [Time] 26.9 s [facility] INR Coag (Bld) [Relative time] 1.1 {INR} 0.9 - 1.1 [facility] Interpretation and review of laboratory results Normal [facility] PT Coag (PPP) [Time] 13.9 s [facility] aPTT Coag (Bld) [Time] 26.9 s Normal 24.0-34.3 [facility] Comment on above: Performed By: #### P TPTT ####[facility] (DEFAULT)[address] [place] [address] INR Coag (PPP) [Relative time] 1.1 {INR} Normal 0.9-1.1 [facility] Comment on above: Performed By: #### P TPTT ####[facility] (DEFAULT)[address] [place] [address] PT Coag (PPP) [Time] 13.9 s Normal 11.9-14.2 [facility] Comment on above: Performed By: #### P TPTT ####[facility] (DEFAULT)[address] [place] [address] Partial Thromboplast Timeon 08-02-2024 aPTT Coag (Bld) [Time] 28.4 s Normal 24.1-36.2 [facility] Comment on above: Performed By: #### L 300.4310, L501.4021, L300.3900, L500.2500, L100.0100 #### [facility] [address] [place], [place], [id number] Platelet countOrdered By: Racheal Morgan on 08-02-2024 Platelets (Bld) [#/Vol] 214 10*3/uL 150-450 [facility]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 [facility] Comment on above: Order Comment: Speci men Type: BLOOD SPECIMENOrdering Facility: [facility] Address: [address] [place] [address] Result Comment: Refe rence: 1. National Cholesterol Education Program ATP III Guideline At-A-Glance Quick Desk Reference: National Heart, Lung, and Blood [place]. National Institutes of Health. 2001: NIH Publication No. 01-3305. 2. An International Atherosclerosis Society position paper: global recommendations for the management of dyslipidemia: executive summary, Atherosclerosis. 2014: 232(2):410-413. Performed By: #### 2 4331-1, , 3015-07 ####[facility] LABCLIA [id number] [address] [address] [place] Cholesterol in VLDL [Mass/Vol] 26 mg/dL Normal <[address] [facility] Comment on above: Order Comment: Speci men Type: BLOOD SPECIMENOrdering Facility: [facility] Address: [address] [place] [address] Performed By: #### 2 4331-1, 92273-6, 3 ####[facility] LABCLIA [id number] [facility] [address] [address] [place] Cholesterol non HDL [Mass/Vol] 149 mg/dL High <[address] [facility] Comment on above: Order Comment: Speci men Type: BLOOD SPECIMENOrdering Facility: [facility] Address: [address] [place] [address] Result Comment: <130 mg/dL, Optimal 130-159 mg/dL, Near optimal/above optimal 160-189 mg/dL, Borderline high 190-219 mg/dL, High >219 mg/dL, Very high Secondary prevention optimal non HDL Cholesterol levels are recommended to be <100 mg/dL Performed By: #### 2 4331-1, 04098-7, 6-3 ####[facility] LABCLIA [id number] [place] [address] [place] Cholesterol.total/Alta sterol in HDL [Mass ratio] 4.39 {ratio} Normal <5.[address] [facility] Comment on above: Order Comment: Speci men Type: BLOOD SPECIMENOrdering Facility: [facility] Address: [address] [place] [address] Performed By: #### 2 4331-1, 94156-8, 3015-3 ####[facility] LABCLIA [id number] [place] [address] [place] FASTING TIME 12 hrs Normal [facility] Comment on above: Order Comment: Speci men Type: BLOOD SPECIMENOrdering Facility: [facility] Address: [address] [place] [address] Performed By: #### 2 4331-1, 12105-3, 3015-3 ####[facility] LABCLIA [id number] [place] [address] [place] Triglyceride [Mass/Vol] 129 mg/dL Normal <150 C [facility] Comment on above: Order Comment: Speci men Type: BLOOD SPECIMENOrdering Facility: [facility] Address: [address] [place] [address] Result Comment: <150 mg/dL, Normal 150-199 mg/dL, Borderline high 200-499 mg/dL, High >499 mg/dL, Very high Performed By: #### 2 4331-1, 99612-9, 3015-3 ####[facility] LABCLIA [id number] [place] [id number] [place] TSH SerPl-aCncon 05-23-2024 TSH Qn 0.183 m[IU]/L Low 0.270-4.[address] [facility] Comment on above: Order Comment: Speci men Type: BLOOD SPECIMENOrdering Facility: [facility] Address: [address] [place] [address] Performed By: #### 2 4331-1, 41942-9, 3016-3 ####[facility] LABCLIA [id number] [place] [id number] [place] CNOVon 11-28-2023 CNOV Office Visit (FAMPWS ) LINDSAY ACUNA ([id number]) 1945 F Date Time Provider Department 11/28/23 9:40 [facility] your visit today, we recorded [...] due for colonoscopy; will contact GI in [place] Lipid: Does not watch diet or exercise. [...] 1 tablet by mouth once daily. lancets (iRezQTOUCH DELICA PLUS LANCET) 30 gauge Test blood [...] Smoking stat (more content not included)... Normal [facility] Comprehensive metabolic 2000 panelon 11-27-2023 Albumin [Mass/Vol] 4.1 g/dL Normal 3.9-4.9 [facility] Comment on above: Order Comment: Speci men Type: BLOOD SPECIMENOrdering Facility: [facility] Address: [address] [place] [address] Performed By: #### 3 016-3, 24668-5, 87964-0 ####[facility] LABCLIA [id number] [place] [address] [place] ALP [Catalytic activity/Vol] 86 U/L Normal 34-[address] [facility] Comment on above: Order Comment: Speci men Type: BLOOD SPECIMENOrdering Facility: [facility] Address: [address] [place] [address] Performed By: #### 3 016-3, 67400-4, 26456-9 ####[facility] LABCLIA [id number] [place] [address] [place] ALT [Catalytic activity/Vol] 13 U/L Normal 7-[address] [facility] Comment on above: Order Comment: Speci men Type: BLOOD SPECIMENOrdering Facility: [facility] Address: [address] [place] [address] Performed By: #### 3 016-3, 51998-1, 16208-5 ####[facility] LABIA [id number] [place] [address] [place] Anion gap [Moles/Vol] 10 mmol/L Normal 8-15 [facility] Comment on above: Order Comment: Speci men Type: BLOOD SPECIMENOrdering Facility: [facility] Address: [address] [place] [address] Performed By: #### 3 016-3, 98036-3, 66433-4 ####[facility] LABIA [id number] [place] [address] [place] AST [Catalytic activity/Vol] 21 U/L Normal 13-[address] [facility] Comment on above: Order Comment: Speci men Type: BLOOD SPECIMENOrdering Facility: [facility] Address: [address] [place] [address] Performed By: #### 3 016-3, 00574-5, 37431-3 ####[facility] LABIA [id number] [place] [address] [place] Bilirubin [Mass/Vol] 0.5 mg/dL Normal 0.2-1.3 [facility] Comment on above: Order Comment: Speci men Type: BLOOD SPECIMENOrdering Facility: [facility] Address: [address] [place] [address] Performed By: #### 3 016-3, 00155-4, ####[facility] LABCLIA [id number] [place] [address] [place] Calcium [Mass/Vol] 9.7 mg/dL Normal 8.5-10.2 [facility] Comment on above: Order Comment: Speci men Type: BLOOD SPECIMENOrdering Facility: [facility] Address: [address] [place] [address] Performed By: #### 3 016-3, 90049-3, 71020-4 ####[facility] LABCLIA [id number] [place] [address] [place] Chloride [Moles/Vol] 108 mmol/L High 98-107 [facility] Comment on above: Order Comment: Speci men Type: BLOOD SPECIMENOrdering Facility: [facility] Address: [address] [place] [address] Performed By: #### 3 016-3, , ####[facility] LABCLIA [id number] [place] [address] [place] CO2 [Moles/Vol] 23 mmol/L Normal 22-[address] [facility] Comment on above: Order Comment: Speci men Type: BLOOD SPECIMENOrdering Facility: [facility] Address: [address] [place] [address] Performed By: #### 3 016-3, , ####[facility] LABCLIA [id number] [place] [id number] [place] Creatinine [Mass/Vol] 1.37 mg/dL High 0.58-0.96 [facility] Comment on above: Order Comment: Speci men Type: BLOOD SPECIMENOrdering Facility: [facility] Address: [address] [place] [address] Performed By: #### 3 016-3, 27693-6, 67059-1 ####[facility] LABCLIA [id number] [place] [address] [place] Creatinine and Glomerular filtration rate.predicted panel (S/P/Bld) 39 mL/min/1.73m??? Low >=[address] [facility] Comment on above: Order Comment: Deana borjas Type: BLOOD SPECIMENOrdering Facility: [facility] Address: [address] [place] [address] Result Comment: Nancy mated Glomerular Filtration Rate [...] actual GFR. Performed By: #### 3 016-3, 83644-6, 76920-0 ####[facility] [id number] [place] [address] [place] Glucose [Mass/Vol] 77 mg/dL Normal 74-99 [facility] Comment on above: Order Comment: Deana borjas Type: BLOOD SPECIMENOrdering Facility: [facility] Address: [address] [place] [address] Result Comment: The [place] Diabetes Association (ADA) provides guidance for cutoff [...] Standards of Medical Care in Diabetes 2016, [place] Diabetes Association. Diabetes Care. 2016.39(Suppl 1). Performed By: #### 3 016-3, 83203-7, 18928-6 ####[facility] LABIA [id number] [place] [address] [place] Potassium [Moles/Vol] 4.4 mmol/L Normal 3.7-5.1 [facility] Comment on above: Order Comment: Speci men Type: BLOOD SPECIMENOrdering Facility: [facility] Address: [address] [place] [address] Performed By: #### 3 016-3, 75480-7, 57890-4 ####[facility] LABCLIA [id number] [place] [address] [place] Protein [Mass/Vol] 6.6 g/dL Normal 6.3-8.0 [facility] Comment on above: Order Comment: Speci men Type: BLOOD SPECIMENOrdering Facility: [facility] Address: [address] [place] [address] Performed By: #### 3 016-3, 45358-1, 42917-8 ####[facility] LABCLIA [id number] [place] [address] [place] Sodium [Moles/Vol] 141 mmol/L Normal 136-144 [facility] Comment on above: Order Comment: Speci men Type: BLOOD SPECIMENOrdering Facility: [facility] Address: [address] [place] [address] Performed By: #### 3 016-3, 85747-4, 72128-0 ####[facility] LABCLIA [id number] [place] [address] [place] Urea nitrogen [Mass/Vol] 21 mg/dL Normal 7-[address] [facility] Comment on above: Order Comment: Speci men Type: BLOOD SPECIMENOrdering Facility: [facility] Address: [address] [place] [address] Performed By: #### 3 016-3, 78003-3, 67955-5 ####[facility] LABCLIA [id number] [place] [address] [place] HbA1c (Bld)on 11-27-2023 Average glucose Estimated from glycated hemoglobin (Bld) [Mass/Vol] 166 mg/dL Normal [facility] Comment on above: Order Comment: Deana borjas Type: BLOOD SPECIMENOrdering Facility: [facility] Address: [address] [place] [address] Result Comment: eAG: (Estimated average glucose) is a calculated value from HgbA1c and is marketing representative of the average blood glucose level in the last 2-3 month period. Performed By: #### 5 5454-3 ####[facility] LABCLIA [id number] [place] [address] [place] HbA1c (Bld) [Mass fraction] 7.4 % High 4.3-5.[address] [facility] Comment on above: Order Comment: Deana borjas Type: BLOOD SPECIMENOrdering Facility: [facility] Address: [address] [place] [address] Result Comment: Amer ican Diabetes Association guidelines indicate that patients with HgbA1c in the range 5.7-6.4% are at increased risk for development of diabetes, and intervention by lifestyle modification may be beneficial. HgbA1c greater or equal to 6.5% is considered diagnostic of diabetes. Performed By: #### 5 5454-3 ####[facility] LABCLIA [id number] [place] [address] [place] Lipid 1996 panelon Cholesterol [Mass/Vol] 156 mg/dL Normal <200 [facility] Comment on above: Order Comment: Deana borjas Type: BLOOD SPECIMENOrdering Facility: [facility] Address: [address] [place] [address] Result Comment: <200 mg/dL, Desirable 200-239 mg/dL, Borderline high >239 mg/dL, High Performed By: #### 3 016-3, 61947-4, 00579-8 ####[facility] LABCLIA [id number] [place] [address] [place] Cholesterol in HDL [Mass/Vol] 41 mg/dL Normal >[address] [facility] Comment on above: Order Comment: Deana men Type: BLOOD SPECIMENOrdering Facility: [facility] Address: [address] [place] [address] Result Comment: 40-5 9 mg/dL, Acceptable >59 mg/dL, High: Negative risk factor for coronary heart disease <40 mg/dL, Low: Positive risk factor for coronary heart disease Performed By: #### 3 016-3, 13748-2, 47545-0 ####[facility] LABCLIA [id number] [address] [place] Cholesterol in LDL [Mass/Vol] 85 mg/dL Normal <[address] [facility] Comment on above: Order Comment: Nicelizabeth borjas Type: BLOOD SPECIMENOrdering Facility: [facility] Address: [address] [place] [address] Result Comment: <100 mg/dL, Optimal 100-129 mg/dL, Near optimal/above optimal 130-159 mg/dL, Borderline high 160-189 mg/dL, High >189 mg/dL, Very high Secondary prevention optimal LDL Cholesterol levels are recommended to be < 70 mg/dL Performed By: #### 3 016-3, 23211-2, 20796-1 ####[facility] LABCLIA [id number] [address] [place] Cholesterol in LDL/Cholesterol in HDL [Mass ratio] 2.07 {ratio} Normal <2.[address] [facility] Comment on above: Order Comment: Deana borjas Type: BLOOD SPECIMENOrdering Facility: [facility] Address: [address] [place] [address] Result Comment: Refe rence: 1. National Cholesterol Education Program ATP III Guideline At-A-Glance Quick Desk Reference: National Heart, Lung, and Blood [place]. National Institutes of Health. 2001: NIH Publication No. 01-3305. 2. An International Atherosclerosis Society position paper: global recommendations for the management of dyslipidemia: executive summary, Atherosclerosis. 2014: 232(2):410-413. Performed By: #### 3 016-3, 24551-5, 03265-2 ####[facility] LABCLIA [id number] [place] [address] [place] Cholesterol in VLDL [Mass/Vol] 30 mg/dL High <[address] [facility] Comment on above: Order Comment: Speci men Type: BLOOD SPECIMENOrdering Facility: [facility] Address: [address] [place] [address] Performed By: #### 3 016-3, 28436-5, 37084-3 ####[facility] LABIA [id number] [place] [address] [place] Cholesterol non HDL [Mass/Vol] 115 mg/dL Normal <[address] [facility] Comment on above: Order Comment: Speci men Type: BLOOD SPECIMENOrdering Facility: [facility] Address: [address] [place] [address] Result Comment: <130 mg/dL, Optimal 130-159 mg/dL, Near optimal/above optimal 160-189 mg/dL, Borderline high 190-219 mg/dL, High >219 mg/dL, Very high Secondary prevention optimal non HDL Cholesterol levels are recommended to be <100 mg/dL Performed By: #### 3 016-3, 49327-5, 54935-2 ####[facility] [id number] [place] [address] [place] Cholesterol.total/Alta sterol in HDL [Mass ratio] 3.80 {ratio} Normal <5.[address] [facility] Comment on above: Order Comment: Speci men Type: BLOOD SPECIMENOrdering Facility: [facility] Address: [address] [place] [address] Performed By: #### 3 016-3, 08839-3, 44672-1 ####[facility] LABIA [id number] [place] [address] [place] FASTING TIME 12 hrs Normal [facility] Comment on above: Order Comment: Speci men Type: BLOOD SPECIMENOrdering Facility: [facility] Address: [address] [place] [address] Performed By: #### 3 016-3, 45049-1, 56009-2 ####[facility] LABCLIA [id number] [place] [address] [place] Triglyceride [Mass/Vol] 148 mg/dL Normal <150 C [facility] Comment on above: Order Comment: Speci men Type: BLOOD SPECIMENOrdering Facility: [facility] Address: [address] [place] [address] Result Comment: <150 mg/dL, Normal 150-199 mg/dL, Borderline high 200-499 mg/dL, High >499 mg/dL, Very high Performed By: #### 3 016-3, 78917-6, 45982-1 ####[facility] LABCLIA [id number] [place] [address] [place] TSH SerPl-aCncon 11-27-2023 TSH Qn 1.870 m[IU]/L Normal 0.270-4.[address] [facility] Comment on above: Order Comment: Speci men Type: BLOOD SPECIMENOrdering Facility: [facility] Address: [address] [place] [address] Performed By: #### 3 016-3, 96692-8, 05315-0 ####[facility] LABCLIA [id number] [address] [place] CNOVon 10-10-2023 CNOV Office Visit (UCTR ) LINDSAY ACUNA ([id number]) 1945 F Date Time Provider Department 10/10/23 7:30 AM DAVID DUPREE [facility] During your visit today, we recorded the following information about you: Temperature Pulse Respiration Blood pressure 97.5 degrees 58/minute 18/minute 128/82 Weight 82.1 kg David Dupree, CARDIOTHORACIC PHYSIOTHERAPIST.SLASHER TENDER HELPER 10/10/2023 8:11 AM Signed Subjective HPI Nontoxic-appearing [...] mouth daily before breakfast. blood sugar diagnostic ([employer] ULTRA TEST) test strip Test Blood Sugar [...] 1 tablet by mouth once daily. lancets (iRezQTOUCH DELICA PLUS LANCET) 30 gauge Test blood sugars 1 time daily. Dx: Type 2 DM Controlled E11.9. Insulin: no Chlorhexidine Gluconate (PERIDEX) 0.12 % solution Use 15 mL as instructed twice daily. Rinse around mouth for 30 seconds then expectorate blood sugar diagnostic (iRezQTOUCH ULTRA TEST STRIP) test strip Use to [...] Rate and (more content not included)... Normal [facility] CNOVon 05-17-2024 CNOV Office Visit (UCWSTR ) LINDSAY ACUNA ([id number]) 1945 F Date Time Provider Department 09/29/23 2:15 PM RADHA LEVINE [facility] During your visit today, we recorded the following information about you: Temperature Pulse Respiration Blood pressure 97.8 degrees 54/minute 18/minute 148/91 Weight 84 kg Radha Levine APRN.SLASHER TENDER HELPER 09/29/2023 6:12 PM Signed This note was created using [employer]. Subjective Lindsay Acuna is a 77 year old female. 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 Denies fever or chills Denies malaise or fatigue Denies new lotions, soaps, or medicines States that she was working out in the garden the same day the rash erupted. The history is provided by the patient. No plant tech was used. Rash This is a new [...] state. Hematologi (more content not included)... Normal [facility] Glucose,Bedsideon 04-16-2019 Glucose [Mass/Vol] 161 mg/dL High 70-100 [facility] Comment on above: Result Comment: Test performed by glucose meter. Results may be 10%-15% lower than serum/plasma values. (CLIA ID [id number]) Performed By: #### B GLU #### [address] [address] Surgical Pathologyon 019 Surgical Pathology [id number] [facility] PATHOLOG[facility]ORATORY MEDICINE [address] [place] [id number] FINAL SURGICAL PATHOLOGY REPORT ___ NAME: LINDSAY ACUNA : 1945 73 Y F BILLING NO.: [id number] LOCATION: 1XEO PROCEDURE 01/09/2019 DATE: SURGEON: SANTIAGO [...] characteristics determined by the clinical laboratories of [facility]. They have not been cleared by [...] negativity on decalcified specimens. Professional Performing Location: [address] [address]. DEPARTMENT OF PATHOLOGY AND LABORATORY MEDICINE [place], [place] [address] Normal [facility] .Auto Diffon 08-22-2018 Ammonia mass conc (P) 1.10 10 3/mcL High 0.15-1.00 [facility] ([place]) Comment on above: Performed By: #### Roby VALVERDE, GFR #### [address] [address] Basophils #/vol (Bld) 0.00 10 3/mcL Normal 0.00-0.19 [facility] ([place]) Comment on above: Performed By: #### Roby VALVERDE, GFR #### [address] [address] Basophils/100 WBC (Bld) 0.3 % Normal 0.0-2.5 [facility] ([place]) Comment on above: Performed By: #### Roby VALVERDE, GFR #### [address] [address] Eosinophils #/vol (Bld) 0.00 10 3/mcL Normal 0.00-0.40 [facility] ([place]) Comment on above: Performed By: #### B MP, GFR #### [address] [address] Eosinophils/100 WBC (Bld) 0.2 % Normal 0.0-7.0 [facility] ([place]) Comment on above: Performed By: #### Roby MP, GFR #### [address] [address] Lymphocytes #/vol (Bld) 2.20 10 3/mcL Normal 0.77-3.85 [facility] ([place]) Comment on above: Performed By: #### B MP, GFR #### [address] [address] Lymphocytes/100 WBC (Bld) 20.5 % Normal 10.0-50.0 [facility] ([place]) Comment on above: Performed By: #### B MP, GFR #### [address] [address] Monocytes/100 WBC (Bld) 10.5 % Normal 1.7-13.0 [facility] ([place]) Comment on above: Performed By: #### B MP, GFR #### [address] [address] Neutrophils/100 WBC (Bld) 68.5 % Normal 37.0-80.0 [facility] ([place]) Comment on above: Performed By: #### B MP, GFR #### [address] [address] .GFRon 08-22-2018 GFR Non- 33 ml/min/1.73sqm Normal [facility] ([place]) Comment on above: Result [...] Performed By: #### B MP, GFR #### [address] [address] #### CBC, ADIFF, ANEU #### [place] [address] [address] GFR 40 ml/min/1.73sqm Normal [facility] ([place]) Comment on above: Result Comment: GFR Population [...] 15 mL/min/1.73 square meters Performed By: #### Roby MP, GFR #### [place] [address] #### CBC, ADIFF, ANEU #### [address] [address] .NEUABSon 08-22-2018 Neutrophils #/vol (Bld) 7.40 10 3/mcL High 2.85-6.16 [facility] ([place]) Comment on above: Performed By: #### Roby MP, GFR #### [place] [address] BMPon 08-22-2018 Calcium mass conc 8.3 mg/dL Low 8.4-10.2 [facility] ([place]) Comment on above: Performed By: #### Roby MP, GFR #### [place] [address] #### CBC, ADIFF, ANEU #### [address] [address] Chloride molar conc 104 mmol/L Normal 98-107 [facility] ([place]) Comment on above: Performed By: #### B MP, GFR #### [place] [address] #### CBC, ADIFF, ANEU #### [address] [address] CO2 molar conc 25 mmol/L Normal 23-31 [facility] ([place]) Comment on above: Performed By: #### B MP, GFR #### [place] [address] #### CBC, ADIFF, ANEU #### [address] [address] Creatinine mass conc 1.53 mg/dL High 0.55-1.02 [facility] ([place]) Comment on above: Performed By: #### B MP, GFR #### [place] [address] #### CBC, ADIFF, ANEU #### [address] [address] Electrolyte Balance 10.0 mEq/L Normal [facility] ([place]) Comment on above: Performed By: #### B MP, GFR #### [place] [address] #### CBC, ADIFF, ANEU #### [address] [address] Glucose mass conc 149 mg/dL High 83-110 [facility] ([place]) Comment on above: Performed By: #### B MP, GFR #### [place] [address] #### CBC, ADIFF, ANEU #### [address] [address] Potassium molar conc 4.3 mmol/L Normal 3.5-5.1 [facility] ([place]) Comment on above: Performed By: #### B MP, GFR #### [place] [address] #### CBC, ADIFF, ANEU #### [address] [address] Sodium molar conc 139 mmol/L Normal 136-145 [facility] ([place]) Comment on above: Performed By: #### B MP, GFR #### [place] [id number] #### CBC, ADIFF, ANEU #### [address] [address] Urea nitrogen mass conc 32 mg/dL High 7-18 [facility] ([place]) Comment on above: Performed By: #### B MP, GFR #### [address] [address] #### CBC, ADIFF, ANEU #### [address] [address] Urea nitrogen/Creatinine mass ratio 21 ratio Normal 7-27 [facility] ([place]) Comment on above: Performed By: #### B MP, GFR #### [place] [address] #### CBC, ADIFF, ANEU #### [address] [address] CBCon 08-22-2018 Erythrocyte distribution width Ratio (RBC) 12.6 % Normal 11.5-14.5 [facility] ([place]) Comment on above: Performed By: #### B MP, GFR #### [place] [address] Hematocrit Volume Fraction (Bld) 27.5 % Low 37.0-47.0 [facility] ([place] Comment on above: Performed By: #### B MP, GFR #### [place] [address] Hemoglobin mass conc (Bld) 9.2 G/dL Low 12.0-16.0 [facility] ([place]) Comment on above: Performed By: #### B MP, GFR #### [place] [address] MCH Entitic mass (RBC) 30.1 pg Normal 27.0-31.2 [facility] ([place]) Comment on above: Performed By: #### B MP, GFR #### [place] [address] MCHC mass conc (RBC) 33.5 G/dL Normal 33.0-37.0 [facility] ([place] Comment on above: Performed By: #### B MP, GFR #### [place] [address] MCV Entitic volume (RBC) 89.8 fL Normal 80.0-94.0 [facility] ([place] Comment on above: Performed By: #### B MP, GFR #### [place] [address] Platelet mean volume Entitic volume (Bld) 9.3 fL Normal 7.4-10.4 [facility] ([place]) Comment on above: Performed By: #### B MP, GFR #### [facility] [address] [place] [address] Platelets #/vol (Bld) 224 10 3/mcL Normal 130-400 [facility] ([place]) Comment on above: Performed By: #### B MP, GFR #### [place] [address] RBC #/vol (Bld) 3.06 10 6/mcL Low 4.20-5.40 [facility] ([place]) Comment on above: Performed By: #### B MP, GFR #### [place] [address] WBC #/vol (Bld) 10.80 10 3/mcL Normal 4.60-10.80 [facility] ([place]) Comment on above: Performed By: #### B MP, GFR #### [place] [address] XR KNEE 1 OR 2 VIEWS RIGHTon [...] AM Sign Date: 08/21/2018 9:55:37 AM Normal [facility] ([place]) CT KNEE W/O CONTRAST RIGHTon 08-09-2018 CT [...] PM Sign Date: 08/09/2018 5:04:12 PM Normal [facility] ([place]) .Auto Diffon 08-06-2018 Ammonia mass conc (P) 0.80 10 3/mcL Normal 0.15-1.00 [facility] ([place]) Comment on above: Performed By: #### C DORY SMITH ANEU #### [place] [address] #### A1C #### [address] [address] Basophils #/vol (Bld) 0.10 10 3/mcL Normal 0.00-0.19 [facility] ([place]) Comment on above: Performed By: #### C DORY SMITH ANEU #### [place] [address] #### A1C #### [address] [address] Basophils/100 WBC (Bld) 0.6 % Normal 0.0-2.5 [facility] ([place]) Comment on above: Performed By: #### C DORY SMITH ANEU #### [place] [address] #### A1C #### [address] [address] Eosinophils #/vol (Bld) 0.20 10 3/mcL Normal 0.00-0.40 [facility] ([place]) Comment on above: Performed By: #### C BC, ADIFF, ANEU #### [address] [address] #### A1C #### [address] [address] Eosinophils/100 WBC (Bld) 1.7 % Normal 0.0-7.0 [facility] ([place]) Comment on above: Performed By: #### C BC, ADIFF, ANEU #### [address] [address] #### A1C #### [address] [address] Lymphocytes #/vol (Bld) 1.90 10 3/mcL Normal 0.77-3.85 [facility] ([place]) Comment on above: Performed By: #### C BC, ADIFF, ANEU #### [address] [address] #### A1C #### [address] [address] Lymphocytes/100 WBC (Bld) 20.8 % Normal 10.0-50.0 [facility] ([place]) Comment on above: Performed By: #### C BC, ADIFF, ANEU #### [address] [address] #### A1C #### [address] [address] Monocytes/100 WBC (Bld) 9.3 % Normal 1.7-13.0 [facility] ([place]) Comment on above: Performed By: #### C BC, ADIFF, ANEU #### [address] [address] #### A1C #### [address] [address] Neutrophils/100 WBC (Bld) 67.6 % Normal 37.0-80.0 [facility] ([place]) Comment on above: Performed By: #### C BC, ADIFF, ANEU #### [address] [address] #### A1C #### [address] [address] .GFRon 08-06-2018 GFR 51 ml/min/1.73sqm Normal [facility] ([place]) Comment on above: Result [...] Performed By: #### B MP, GFR #### [place] [address] GFR Non- 42 ml/min/1.73sqm Normal [facility] ([place]) Comment on above: Result [...] Performed By: #### B MP, GFR #### [place] [address] .NEUABSon 08-06-2018 Neutrophils #/vol (Bld) 6.20 10 3/mcL High 2.85-6.16 [facility] ([place]) Comment on above: Performed By: #### C BC, ODRY, FANTASMA #### [address] [address] #### A1C #### [address] [address] A1Con 08-06-2018 Hemoglobin A1c/Hemoglobin.total mass fraction (Bld) 7.9 % High 4.5-6.2 [facility] ([place]) Comment on above: Performed By: #### C BC, ADIFF, ANEU #### [address] [address] #### A1C #### [address] [address] BMPon 08-06-2018 Calcium mass conc 9.2 mg/dL Normal 8.4-10.2 [facility] ([place]) Comment on above: Performed By: #### B MP, GFR #### [place] [address] Chloride molar conc 105 mmol/L Normal 98-107 [facility] ([place] Comment on above: Performed By: #### B MP, GFR #### [place] [address] CO2 molar conc 27 mmol/L Normal 23-31 [facility] ([place]) Comment on above: Performed By: #### B MP, GFR #### [place] [address] Creatinine mass conc 1.25 mg/dL High 0.55-1.02 [facility] ([place]) Comment on above: Performed By: #### B MP, GFR #### [place] [address] Electrolyte Balance 11.0 mEq/L Normal [facility] ([place]) Comment on above: Performed By: #### B MP, GFR #### [place] [address] Glucose mass conc 70 mg/dL Low 83-110 [facility] ([place]) Comment on above: Performed By: #### B MP, GFR #### [place] [address] Potassium molar conc 5.0 mmol/L Normal 3.5-5.1 [facility] ([place] Comment on above: Performed By: #### B MP, GFR #### [place] [address] Sodium molar conc 143 mmol/L Normal 136-145 [facility] ([place]) Comment on above: Performed By: #### B MP, GFR #### [place] [address] Urea nitrogen mass conc 26 mg/dL High 7-18 [facility] ([place] Comment on above: Performed By: #### B MP, GFR #### [place] [address] Urea nitrogen/Creatinine mass ratio 21 ratio Normal 7-27 [facility] ([place]) Comment on above: Performed By: #### B MP, GFR #### [place] [address] CBCon 08-06-2018 Erythrocyte distribution width Ratio (RBC) 12.2 % Normal 11.5-14.5 [facility] ([place]) Comment on above: Performed By: #### C DORY SMITH ANEU #### [place] [address] #### A1C #### [place] [address] Hematocrit Volume Fraction (Bld) 34.6 % Low 37.0-47.0 [facility] ([place] Comment on above: Performed By: #### C DORY SMITH ANEU #### [place] [address] #### A1C #### [place] [address] Hemoglobin mass conc (Bld) 11.7 G/dL Low 12.0-16.0 [facility] ([place]) Comment on above: Performed By: #### C DORY SMITH, ANEU #### [address] [address] #### A1C #### [place] [address] MCH Entitic mass (RBC) 30.6 pg Normal 27.0-31.2 [facility] ([place]) Comment on above: Performed By: #### C BC ADIFF, ANEU #### [address] [address] #### A1C #### [address] [address] MCHC mass conc (RBC) 33.7 G/dL Normal 33.0-37.0 [facility] ([place]) Comment on above: Performed By: #### C BC, ADIFF, ANEU #### [address] [address] #### A1C #### [address] [address] MCV Entitic volume (RBC) 90.9 fL Normal 80.0-94.0 [facility] ([place]) Comment on above: Performed By: #### C DORY SMITH, ANEU #### [place] [address] #### A1C #### [place] [address] Platelet mean volume Entitic volume (Bld) 8.8 fL Normal 7.4-10.4 [facility] ([place]) Comment on above: Performed By: #### C BC ADIFF, ANEU #### [address] [address] #### A1C #### [address] [address] Platelets #/vol (Bld) 355 10 3/mcL Normal 130-400 [facility] ([place]) Comment on above: Performed By: #### C BC, ADIFF, ANEU #### [place] [id number] #### A1C #### [address] [address] RBC #/vol (Bld) 3.81 10 6/mcL Low 4.20-5.40 [facility] ([place]) Comment on above: Performed By: #### C BC, ADIFF, ANEU #### [place] [address] [place], [place] [address] #### A1C #### [address] [address] WBC #/vol (Bld) 9.20 10 3/mcL Normal 4.60-10.80 [facility] ([place]) Comment on above: Performed By: #### C BC, ADIFF, ANEU #### [address] [address] #### A1C #### [address] [address] Vital Signs Date Time Vital Sign Value Performing Clinician Facility 10-02-2024 09:21-0400 Body height 167.[address] Kameron Caruso MD Work Phone: [facility] 10-02-2024 09:21-0400 Diastolic blood pressure 71 mm[Hg] Dr. Kameron Caruso MD Work Phone: [facility] 10-02-2024 09:21-0400 Heart rate 77 /min Dr. Kameron Caruso MD Work Phone: [facility] 10-02-2024 09:21-0400 Respiratory rate 16 /min Dr. Kameron Caruso MD Work Phone: [facility] 10-02-2024 09:21-0400 Systolic blood pressure 111 mm[Hg] Dr. Kameron Caruso MD Work Phone: [facility] 09-09-2024 09:02-0400 Heart rate 100 /min SILVINO HA DO [facility] 09-09-2024 07:58-0400 Blood Pressure Cuff Size SILVINO PALAKATZSHITAL DO [facility] [place] 09-09-2024 07:58-0400 Blood Pressure Location SILVINO RADERLE DO [facility] 09-09-2024 07:58-0400 Blood Pressure Method SILVINO HA DO [facility] 09-09-2024 07:58-0400 Body temperature 96.8 [degF] SILVINO CIDATZLE DO [facility] [place] 09-09-2024 07:58-0400 Diastolic Blood Pressure Non-Invasive 78 mm[Hg] SILVINO SCHEATZLE DO [facility] 09-09-2024 07:58-0400 Heart rate 110 /min SILVINO SCHEATZLE DO [facility] [place] 09-09-2024 07:58-0400 Reason For Taking VItal Signs SILVINO CIDATZLE DO [facility] [place] 09-09-2024 07:58-0400 Respiratory rate 16 /min SILVINO CIDATZLE DO [facility] [place] 09-09-2024 07:58-0400 Systolic Blood Pressure Non-Invasive 122 mm[Hg] SILVINO PALAKATZLE DO [facility] 09-09-2024 02:45-0400 Body temperature 97.7 [degF] SILVINO CIDATZLE DO [facility] 09-09-2024 02:45-0400 Diastolic Blood Pressure Non-Invasive 60 mm[Hg] SILVINO CIDATZLE DO [facility] 09-09-2024 02:45-0400 Heart rate 92 /min SILVINO PALAKATZLE DO [facility] 09-09-2024 02:45-0400 Respiratory rate 16 /min SILVINO CIDATZLE DO [facility] 09-09-2024 02:45-0400 Systolic Blood Pressure Non-Invasive 108 mm[Hg] SILVINO CIDATZLE DO [facility] [place] 09-08-2024 22:28-0400 Blood Pressure Cuff Size SILVINO CIDATZLE DO [facility] 09-08-2024 22:28-0400 Blood Pressure Location SILVINO CIDATZSHITAL DO [facility] 09-08-2024 22:28-0400 Blood Pressure Method SILVINO CIDATZLE DO [facility] 09-08-2024 22:28-0400 Body temperature 97.88 [degF] SILVINO CIDATZLE DO [facility] 09-08-2024 22:28-0400 Diastolic Blood Pressure Non-Invasive 54 mm[Hg] SILVINO CIDATZLE DO [facility] 09-08-2024 22:28-0400 Heart rate 92 /min SILVINO CIDATZLE DO [facility] 09-08-2024 22:28-0400 Reason For Taking VItal Signs SILVINO CIDATZLE DO [facility] 09-08-2024 22:28-0400 Respiratory rate 16 /min SILVINO CIDATZLE DO [facility] 09-08-2024 22:28-0400 Systolic Blood Pressure Non-Invasive 118 mm[Hg] SILVINO CIDATZLE DO [facility] 09-08-2024 18:21-0400 Heart rate 90 /min SILVINO CIDATZLE DO [facility] 09-08-2024 09:08-0400 Blood Pressure Cuff Size SILVINO CIDATZLE DO [facility] 09-08-2024 09:08-0400 Blood Pressure Location SILVINO CIDATZLE DO [facility] [place] 09-08-2024 09:08-0400 Blood Pressure Method SILVINO CIDATZLE DO [facility] [place] 09-08-2024 09:08-0400 Heart rate 114 /min SILVINO HA DO [facility] [place] 09-08-2024 09:08-0400 Reason For Taking VItal Signs SILVINO RADERLE DO [facility] [place] 09-04-2024 10:54-0400 Body temperature 96.62 [degF] SILVINO CIDATZLE DO [facility] [place] 09-03-2024 00:26-0400 Body temperature 97.34 [degF] SILVINO CIDATZLE DO [facility] 08-30-2024 22:54-0400 Body temperature 98.06 [degF] SILVINO CIDATZLE DO [facility] 08-26-2024 10:36-0400 Body weight 76 kg SILVINO CIDATZLE DO [facility] [place] 08-19-2024 06:00-0400 Body weight 75.3 kg SILVINO CIDATZLE DO [facility] 08-15-2024 14:27-0400 Body height 170.2 cm SILVINO CIDATZLE DO [facility] [place] 08-15-2024 14:27-0400 Body weight 75.4 kg SILVINO CIDATZLE DO [facility] 08-15-2024 14:27-0400 Body weight 26.03 kg/m2 SILVINO CIDATZLE DO [facility] 08-15-2024 09:02-0400 Diastolic blood pressure 69 mm[Hg] Prema Ramos MD Work Phone: [facility] 08-15-2024 09:02-0400 Systolic blood pressure 128 mm[Hg] Prema Ramos MD Work Phone: 2(348)[phone] [place] [address] 08-15-2024 07:28-0400 Heart rate 86 /min Prema Ramos MD Work Phone: 5(552)736-992493 [place] [address] 08-15-2024 07:18-0400 Body temperature 97.3 [degF] Prema Ramos MD Work Phone: 8(677)831-168693 [place] [address] 08-15-2024 07:18-0400 Respiratory rate 23 /min Prema Ramos MD Work Phone: 0(896)[phone] [place] [address] 08-15-2024 07:18-0400 SaO2% (BldA) [Mass fraction] 95 % Prema Ramos MD Work Phone: 2(563)834-069493 [place] [address] 08-05-2024 08:00-0400 Body height 170.2 cm Prema Ramos MD Work Phone: 0(443)606-494893 [place] [address] 08-05-2024 08:00-0400 Body mass index (BMI) [Ratio] 26.94 kg/m2 Prema Ramos MD Work Phone: 5(651)548-363893 [place] [address] 08-05-2024 08:00-0400 Body weight 78.02 kg Prema Ramos MD Work Phone: 0(847)766-411393 [place] [address] 08-02-2024 13:52-0400 Body temperature 98 [degF] Dr. Kameron Caruso MD Work Phone: [facility] 08-02-2024 13:52-0400 Diastolic blood pressure 91 mm[Hg] Dr. Kameron Caruso MD Work Phone: [facility] 08-02-2024 13:52-0400 Heart rate 109 /min Dr. Kameron Caruso MD Work Phone: [facility] 08-02-2024 13:52-0400 Respiratory rate 16 /min Dr. Kameron Caruso MD Work Phone: [facility] 08-02-2024 13:52-0400 SaO2% (BldA) [Mass fraction] 98 % Dr. Kameron Caruso MD Work Phone: [facility] 08-02-2024 13:52-0400 Systolic blood pressure 153 mm[Hg] Dr. Kameron Caruso MD Work Phone: [facility] 08-02-2024 12:46-0400 Body height 167.[address] Kameron Caruso MD Work Phone: [facility] 08-02-2024 12:46-0400 Body mass index (BMI) [Ratio] 26.6 kg/m2 Dr. Kameron Caruso MD Work Phone: [facility] 08-02-2024 12:46-0400 Body weight [address] Kameron Caruso MD Work Phone: [facility] 06-26-2024 09:39-0500 Body mass index (BMI) [Ratio] 27.25 kg/m2 Emma Sotomayor CARDIOTHORACIC PHYSIOTHERAPIST.SLASHER TENDER HELPER Work Phone: [facility] 06-26-2024 09:39-0500 Body weight 78.93 kg Emma Sotomayor CARDIOTHORACIC PHYSIOTHERAPIST.SLASHER TENDER HELPER Work Phone: [facility] 06-26-2024 09:39-0500 Diastolic blood pressure 88 mm[Hg] Emma Canaleshof CARDIOTHORACIC PHYSIOTHERAPIST.SLASHER TENDER HELPER Work Phone: [facility] 06-26-2024 09:39-0500 Heart rate 93 /min Emma Canaleshof CARDIOTHORACIC PHYSIOTHERAPIST.SLASHER TENDER HELPER Work Phone: [facility] 06-26-2024 09:39-0500 Respiratory rate 16 /min Emma Canaleshofreddie CARDIOTHORACIC PHYSIOTHERAPIST.SLASHER TENDER HELPER Work Phone: [facility] 06-26-2024 09:39-0500 SaO2% (BldA) [Mass fraction] 98 % Emma Sotomayor CARDIOTHORACIC PHYSIOTHERAPIST.SLASHER TENDER HELPER Work Phone: [facility] 06-26-2024 09:39-0500 Systolic blood pressure 144 mm[Hg] Emma Canaleshofreddie CARDIOTHORACIC PHYSIOTHERAPIST.SLASHER TENDER HELPER Work Phone: [facility] 05-31-2024 08:56-0500 Diastolic blood pressure 84 mm[Hg] Kameron Caruso MD Work Phone: [facility] 05-31-2024 08:56-0500 Systolic blood pressure 136 mm[Hg] Kameron Caruso MD Work Phone: [facility] 05-31-2024 08:47-0500 Body mass index (BMI) [Ratio] 27.28 kg/m2 Kameron Caruso MD Work Phone: [facility] 05-31-2024 08:47-0500 Body weight 79 kg Kameron Caruso MD Work Phone: [facility] 05-31-2024 08:47-0500 Heart rate 100 /min Kameron Caruso MD Work Phone: [facility] 05-31-2024 08:47-0500 Respiratory rate 18 /min Kameron Caruso MD Work Phone: [facility] 11-28-2023 09:42-0400 Diastolic blood pressure 78 mm[Hg] Kameron Caruso MD Work Phone: [facility] 11-28-2023 09:42-0400 Systolic blood pressure 142 mm[Hg] Kameron Caruso MD Work Phone: [facility] 11-28-2023 09:41-0400 Body mass index (BMI) [Ratio] 27.82 kg/m2 Kameron Caruso MD Work Phone: [facility] 11-28-2023 09:41-0400 Body weight 80.56 kg Kameron Caruso MD Work Phone: [facility] 11-28-2023 09:41-0400 Heart rate 68 /min Kameron Caruso MD Work Phone: [facility] 11-28-2023 09:41-0400 Respiratory rate 18 /min Kameron Caruso MD Work Phone: [facility] 10-10-2023 07:31-0400 Body mass index (BMI) [Ratio] 28.35 kg/m2 David Dupree APRN.CNP Work Phone: [facility] 10-10-2023 07:31-0400 Body temperature 97.5 [degF] David Mellisabury CARDIOTHORACIC PHYSIOTHERAPIST.SLASHER TENDER HELPER Work Phone: [facility] 10-10-2023 07:31-0400 Body weight 82.1 kg [facility] CARDIOTHORACIC PHYSIOTHERAPIST.SLASHER TENDER HELPER Work Phone: [facility] 10-10-2023 07:31-0400 Diastolic blood pressure 82 mm[Hg] David Pakbury CARDIOTHORACIC PHYSIOTHERAPIST.SLASHER TENDER HELPER Work Phone: [facility] 10-10-2023 07:31-0400 Heart rate 58 /min David Pakbury CARDIOTHORACIC PHYSIOTHERAPIST.SLASHER TENDER HELPER Work Phone: [facility] 10-10-2023 07:31-0400 Respiratory rate 18 /min David Pakantonia CARDIOTHORACIC PHYSIOTHERAPIST.SLASHER TENDER HELPER Work Phone: [facility] 10-10-2023 07:31-0400 SaO2% (BldA) [Mass fraction] 100 % David Pakantonia CARDIOTHORACIC PHYSIOTHERAPIST.SLASHER TENDER HELPER Work Phone: [facility] 10-10-2023 07:31-0400 Systolic blood pressure 128 mm[Hg] David Pakbury CARDIOTHORACIC PHYSIOTHERAPIST.SLASHER TENDER HELPER Work Phone: [facility] 09-29-2023 14:14-0400 Body mass index (BMI) [Ratio] 29 kg/m2 Radha Levine CARDIOTHORACIC PHYSIOTHERAPIST.SLASHER TENDER HELPER Work Phone: [facility] [place] 09-29-2023 14:14-0400 Body temperature 97.81 [degF] Radha Levine CARDIOTHORACIC PHYSIOTHERAPIST.SLASHER TENDER HELPER Work Phone: [facility] [place] 09-29-2023 14:14-0400 Body weight 84 kg Radha Levine CARDIOTHORACIC PHYSIOTHERAPIST.SLASHER TENDER HELPER Work Phone: [facility] [place] 09-29-2023 14:14-0400 Diastolic blood pressure 91 mm[Hg] Radha Levine CARDIOTHORACIC PHYSIOTHERAPIST.SLASHER TENDER HELPER Work Phone: [facility] [place] 09-29-2023 14:14-0400 Heart rate 54 /min Radha Levine CARDIOTHORACIC PHYSIOTHERAPIST.SLASHER TENDER HELPER Work Phone: [facility] [place] 09-29-2023 14:14-0400 Respiratory rate 18 /min Radha Levine CARDIOTHORACIC PHYSIOTHERAPIST.SLASHER TENDER HELPER Work Phone: [facility] [place] 09-29-2023 14:14-0400 SaO2% (BldA) [Mass fraction] 99 % Radha Levine CARDIOTHORACIC PHYSIOTHERAPIST.SLASHER TENDER HELPER Work Phone: [facility] [place] 09-29-2023 14:14-0400 Systolic blood pressure 148 mm[Hg] Radha Levine CARDIOTHORACIC PHYSIOTHERAPIST.SLASHER TENDER HELPER Work Phone: [facility] [place] 05-27-2022 09:42-0500 Body weight 83.83 kg Kameron Caruso MD Work Phone: [facility] [place] 05-27-2022 09:42-0500 Diastolic blood pressure 84 mm[Hg] Kameron Caruso MD Work Phone: [facility] [place] 05-27-2022 09:42-0500 Heart rate 68 /min Kameron Caruso MD Work Phone: [facility] [place] 05-27-2022 09:42-0500 Respiratory rate 16 /min Kameron Caruso MD Work Phone: [facility] [place] 05-27-2022 09:42-0500 Systolic blood pressure 136 mm[Hg] Kameron Caruso MD Work Phone: [facility] [place] 03-02-2022 10:52-0400 Diastolic blood pressure 76 mm[Hg] Emma Tannhof CARDIOTHORACIC PHYSIOTHERAPIST.SLASHER TENDER HELPER Work Phone: [facility] [place] 03-02-2022 10:52-0400 Heart rate 92 /min Emma Tannhof CARDIOTHORACIC PHYSIOTHERAPIST.SLASHER TENDER HELPER Work Phone: [facility] [place] 03-02-2022 10:52-0400 Respiratory rate 18 /min Emma Tannhof CARDIOTHORACIC PHYSIOTHERAPIST.SLASHER TENDER HELPER Work Phone: [facility] [place] 03-02-2022 10:52-0400 Systolic blood pressure 140 mm[Hg] Emma Tannhof CARDIOTHORACIC PHYSIOTHERAPIST.SLASHER TENDER HELPER Work Phone: [facility] [place] 11-23-2021 09:39-0400 Body weight 83.1 kg Kameron Caruso MD Work Phone: [facility] [place] 11-23-2021 09:39-0400 Diastolic blood pressure 80 mm[Hg] Kameron Caruso MD Work Phone: [facility] [place] 11-23-2021 09:39-0400 Heart rate 84 /min Kameron Caruso MD Work Phone: [facility] [place] 11-23-2021 09:39-0400 Respiratory rate 16 /min Kameron Caruso MD Work Phone: [facility] [place] 11-23-2021 09:39-0400 Systolic blood pressure 138 mm[Hg] Kameron Caruso MD Work Phone: [facility] [place] 10-16-2019 10:09-0400 BP Diastolic 72 mm[Hg] [facility] [place] [facility] [place] 10-16-2019 10:09-0400 BP Systolic 144 mm[Hg] Santiago [facility] [place] , [place] 10-16-2019 10:09-0400 Pulse (Heart Rate) 62 /min [facility] 10-16-2019 10:09-0400 Pulse Oximetry 98 % Santiago Jose [facility] [place] , [place] 10-16-2019 10:09-0400 Respiratory Rate 18 /min Santiago Jose [facility], [place] 10-16-2019 09:15-0400 BMI (Body Mass Index) 29.44 kg/m2 Santiago Miller [facility] [place], [place] 10-16-2019 09:15-0400 Body Temperature 97.81 [degF] Santiago [facility], [place] 10-16-2019 09:15-0400 Body weight 85.28 kg [facility] [place] 10-16-2019 09:15-0400 Height 170.2 cm Santiago Jose [facility] [place] , [place] 01-09-2019 12:06-0400 BP Diastolic 73 mm[Hg] Santiago [facility] , [place] 01-09-2019 12:06-0400 BP Systolic 121 mm[Hg] [facility] [place] 01-09-2019 11:50-0400 Pulse (Heart Rate) 64 /min Santiago Miller [facility], [place] 01-09-2019 11:50-0400 Pulse Oximetry 100 % Santiago Miller [facility] , [place] 01-09-2019 11:50-0400 Respiratory Rate 18 /min Santiago Miller [facility] , [place] 01-09-2019 10:28-0400 BMI (Body Mass Index) 28.82 kg/m2 Santiago Miller [facility], [place] 01-09-2019 10:28-0400 Body weight 83.46 kg Santiago Miller [facility] , [place] 01-09-2019 10:28-0400 Height 170.2 cm Santiago Miller [facility] , [place] 01-09-2019 10:27-0400 Body Temperature 97.5 [degF] Santiago Miller [facility], [place] Encounters Encounter Date Encounter Type Care Provider Facility Start: 11-19-2024 ambulatory Kameron Elderbrock Facilit y:[facility] Start: 11-12-2024 ambulatory Kameron Elderbrock Facilit y:[facility] Start: 11-05-2024 ambulatory Kameron Elderbrock Facilit y:[facility] Start: 10-29-2024 ambulatory Kameron Elderbrock Facilit y:[facility] Start: 10-23-2024 ambulatory Kameron Elderbrock Facilit y:[facility] Start: 10-22-2024 ambulatory Kameron Elderbrock Facilit y:[facility] Start: 10-15-2024 ambulatory Kameron Elderbrock Facilit y:[facility] Start: 10-08-2024 ambulatory Kameron Elderbrock Facilit y:[facility] Start: 10-02-2024 End: 10-02-[address] Mj Benavides MD -[facility] Work Phone: Start: 10-02-2024 End: 10-02-[address] Kameron Caruso MD Work Phone: [facility] Work Phone: Start: 10-01-2024 ambulatory Safia VARGAS Fa cility:[facility] Start: 10-01-2024 Registered Referred Safia Torres Start: 09-29-2024 ambulatory Kameron Caruso Facilit y:[facility] Start: 09-29-2024 Registered Referred Safia Torres Start: 09-24-2024 ambulatory Kameron Caruso Facilit y:[facility] Start: 09-24-2024 Registered Referred Safia Torres Start: 09-17-2024 ambulatory Kameron Caruso Facilit y:[facility] Start: 09-17-2024 Registered Referred Safia Torres Start: 09-11-2024 End: 09-11-2024 ambulatory Bret Snyder Facility:[facility] Start: 09-10-2024 End: 09-10-2024 ambulatory Bandarskye Ruelas [facility] Start: 09-10-2024 Registered Referred Safia Torres Start: 08-30-2024 End: 08-30-2024 Telephone encounter Kameron Caruso MD Work Phone: [facility] Comment on above: [facility] requesti ng verbal agree to follow Start: 08-15-2024 End: 09-09-2024 Evaluation and management of inpatient SILVINO HA DO Tyler Garcia Start: 08-09-2024 Evaluation and manag ement of inpatient KAMERON CARUSO Facility:[facility] Start: 08-06-2024 Evaluation and manag ement of inpatient [facility] Start: 08-02-2024 End: 08-02-2024 ambulatory [facility] Facility:[facility] Start: 08-02-2024 End: 08-15-2024 Evaluation and management of inpatient Prema Ramos MD Work Phone: [id number] Start: 08-02-2024 End: 08-02-2024 Emergency department patient [...] Kameron Caruso MD Work Phone: [facility] Comment on above: medication not on cu rrent med list Start: 06-26-2024 End: 06-26-2024 Office outpatient visit 25 minutes Emma Sotomayor APRN.SLASHER TENDER HELPER Work Phone: [facility] [place] Comment on above: Atrial fibrillation, unspecified type (HCC) (Primary Dx); Hypothyroidism, unspecified type; Need for malaria prophylaxis Start: 06-26-2024 End: 06-26-2024 ambulatory EMMA SOTOMAYOR Facility:[facility] Start: 06-25-2024 ambulatory KAMERON CARUSO Facil ity:[facility] Start: 06-24-2024 End: 06-24-2024 Telephone encounter Kameron Caruso MD Work Phone: [facility] [place] Comment on above: Patient Update Start: 06-11-2024 End: 06-11-2024 Telephone encounter Kameron Caruso MD Work Phone: [facility] [place] Comment on above: Results Start: 06-11-2024 End: 06-11-2024 ambulatory KAMERON CARUSO Facility:[facility] Start: 06-10-2024 End: 06-11-2024 Telephone encounter Kameron Caruso MD Work Phone: [facility] [place] Comment on above: Medication Problem Start: 05-31-2024 End: 05-31-2024 ambulatory KAMERON CARUSO Facility:[facility] Start: 05-31-2024 End: 05-31-2024 Patient encounter procedure Kameron Caruso MD Work Phone: [facility] [place] Comment on above: Essential hypertensi [...] unspecified type (HCC) Start: 05-23-2024 End: 05-23-2024 [facility] Facility:[facility] Start: 11-28-2023 End: 11-28-2023 [facility] Facility:[facility] Start: 11-28-2023 End: 11-28-2023 Patient encounter procedure Kameron Caruso MD Work Phone: [facility] [place] Comment on above: 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, unspecified CKD stage, unspecified whether terminologist insulin use (HCC) (Primary Dx); Essential hypertension, benign; Chronic kidney disease, stage 3a (HCC); Hyperlipidemia, unspecified hyperlipidemia type; Hypothyroidism, unspecified type; Edema of left lower leg; Memory loss; Type 2 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, without long-term current use of insulin ([facility]) Start: 11-27-2023 End: 11-27-2023 [facility] Facility:[facility] Start: 10-10-2023 End: 10-10-2023 [facility] Facility:[facility] Start: 10-10-2023 End: 10-10-2023 Office outpatient visit 25 minutes David Dupree APRN.SLASHER TENDER HELPER Work Phone: [facility] Comment on above: Rash (Primary Dx) Start: 09-29-2023 End: 09-29-2023 [facility] Facility:[facility] Start: 09-29-2023 End: 09-29-2023 Patient encounter procedure Radha Levine APRN.SLASHER TENDER HELPER Work Phone: [facility] Comment on above: Allergic contact lexi matitis due to plant (Primary Dx) Start: 09-19-2023 Refill Kameron nixon MD Work Phone: [facility] [place] Comment on above: Refill Request Start: 04-08-2023 Telephone encounter Kameron bucio MD Work Phone: [address] [place] [address] Comment on above: Refill Request Start: 11-25-2022 Telephone encounter Kameron bucio MD Work Phone: [facility] [place] Comment on above: Patient Question Start: 05-27-2022 End: 05-27-2022 Patient encounter procedure Kameron Caruso MD Work Phone: [facility] [place] Comment on above: Essential hypertensi on, benign (Primary Dx); Hypothyroidism, unspecified type; Type 2 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, without long-term current use of insulin (HCC); Hyperlipidemia, unspecified hyperlipidemia type; Chronic kidney disease, stage 3a (HCC); Edema of left lower leg; Wellness examination Start: 05-27-2022 End: 05-27-2022 Patient encounter status Kameron Caruso MD Work Phone: [facility] Start: 04-11-2022 Refill Kameron nixon MD Work Phone: [facility] Comment on above: Refill Request Start: 03-02-2022 ambulatory Kameron nixon MD Work Phone: [facility] Comment on above: Back Pain Start: 03-02-2022 End: 03-02-2022 Patient encounter procedure Emma Sotomayor APRN.SLASHER TENDER HELPER Work Phone: [facility] Comment on above: Acute midline low ba ck pain without sciatica (Primary Dx) Start: 01-11-2022 Refill Mj ORTIZ RN.SLASHER TENDER HELPER Work Phone: [facility] [place] Comment on above: Refill Request Start: 01-11-2022 Refill Kameron nixon MD Work Phone: [facility] [place] Comment on above: Refill Request Start: 12-16-2021 Telephone encounter Kameron bucio MD Work Phone: [facility] [place] Comment on above: Diabetic Testing Sup plies Start: 11-23-2021 End: 11-23-2021 Refill Kameron Caruso MD Work Phone: [facility] [place] Comment on above: 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, unspecified CKD stage, unspecified whether terminologist insulin use (HCC) (Primary Dx); Essential hypertension, benign; Hyperlipidemia, unspecified hyperlipidemia type; Stage 3b chronic kidney disease (HCC); Hypothyroidism, unspecified type; Memory loss Start: 10-14-2021 Refill Kameron nixon MD Work Phone: [facility] [place] Comment on above: Refill Request Start: 09-27-2021 Telephone encounter Kameron bucio MD Work Phone: [facility] [place] Comment on above: information requeste d/rxs needed Start: 09-13-2021 Telephone encounter [facility]ucio MD [facility] Comment on above: Patient Question; Me [...] Start: 08-15-2024 Assay of magnesium Abram Mccoy CARDIOTHORACIC PHYSIOTHERAPIST-SLASHER TENDER HELPER Work Phone: Start: 08-15-2024 Glucose measurement, blood Christos Voss MD Work Phone: Start: 08-14-2024 Glucose measurement, blood Christos Voss MD Work Phone: Start: 08-14-2024 Glucose measurement, blood Christos Voss MD Work Phone: Start: 08-14-2024 Glucose measurement, blood Christos Voss MD Work Phone: Start: 08-14-2024 Assay of magnesium Abram Hwang [facility] Work Phone: Start: 08-13-2024 Glucose measurement, blood Christos Voss MD Work Phone: Start: 08-13-2024 Glucose measurement, blood Christos Voss MD Work Phone: Start: 08-13-2024 Glucose measurement, blood Christos Voss MD Work Phone: Start: 08-13-2024 Glucose measurement, blood Felicity Castellano MD Work Phone: Start: 08-13-2024 Assay of magnesium Abram Hwang [facility] Work Phone: Start: 08-13-2024 Glucose measurement, blood Felicity Castellano MD Work Phone: Start: 08-12-2024 Glucose measurement, blood Felicity Castellano MD Work Phone: Start: 08-12-2024 Glucose measurement, blood Felicity Castellano MD Work Phone: Start: 08-12-2024 Glucose measurement, blood Felicity Castellano MD Work Phone: Start: 08-12-2024 Assay of magnesium Abram Hwang [facility] Work Phone: Start: 08-12-2024 Glucose measurement, blood Felicity Castellano MD Work Phone: Start: 08-11-2024 Glucose measurement, blood Felicity Castellano MD Work Phone: Start: 08-11-2024 Glucose measurement, blood Felicity Castellano MD Work Phone: Start: 08-11-2024 Glucose measurement, blood Felicity Castellano MD Work Phone: Start: 08-11-2024 Assay of magnesium Abram Hwang Nadine CARDIOTHORACIC PHYSIOTHERAPIST-SLASHER TENDER HELPER Work Phone: Start: 08-10-2024 Glucose measurement, blood Felicity Castellano MD Work Phone: Start: 08-10-2024 Glucose measurement, blood Felicity Castellano MD Work Phone: Start: 08-10-2024 End: 08-10-2024 Culture bacterial blood aerobic w/id isolates Radha Gr CARDIOTHORACIC PHYSIOTHERAPIST-SLASHER TENDER HELPER Work Phone: Start: 08-10-2024 Glucose measurement, blood Felicity Castellano MD Work Phone: Start: 08-10-2024 End: 08-10-2024 Glucose measurement, blood Felicity Castellano MD Work Phone: Start: 08-10-2024 Glucose measurement, blood Felicity Castellano MD Work Phone: Start: 08-10-2024 Assay of magnesium Abram chavez Jaiden Nadine CARDIOTHORACIC PHYSIOTHERAPIST-SLASHER TENDER HELPER Work Phone: Start: 08-10-2024 Glucose measurement, blood Felicity Castellano MD Work Phone: Start: 08-09-2024 Glucose measurement, blood Felicity Castellano MD Work Phone: Start: 08-09-2024 Glucose measurement, blood Felicity Castellano MD Work Phone: Start: 08-09-2024 INTERVENTIONAL UPPER ENDOSCOPY Jonnie Mccabe MD Work Phone: Start: 08-09-2024 Level iv surg pathol ogy gross&microscopic exam Judson Beebe Sagar DO Work Phone: Start: 08-09-2024 Glucose measurement, blood Felicity Castellano MD Work Phone: Start: 08-09-2024 Assay of magnesium Abdoulmelanie scott Hwang Nadine CARDIOTHORACIC PHYSIOTHERAPIST-SLASHER TENDER HELPER Work Phone: Start: 08-09-2024 Glucose measurement, blood Felicity Castellano MD Work Phone: Start: 08-08-2024 Glucose measurement, blood Felicity Castellano MD Work Phone: Start: 08-08-2024 Culture bct isol&prs mptv id isolate ea urine Bella Cardenas CARDIOTHORACIC PHYSIOTHERAPIST-SLASHER TENDER HELPER Work Phone: Start: 08-08-2024 EXTRA MICRO Bella Hwang Ma rtforrest CARDIOTHORACIC PHYSIOTHERAPIST-SLASHER TENDER HELPER Work Phone: Start: 08-08-2024 URINALYSIS REFLEX TO CULTURE Bella Cardenas CARDIOTHORACIC PHYSIOTHERAPIST-SLASHER TENDER HELPER Work Phone: Start: 08-08-2024 Ct head/brain w/o co ntrast material Bella Cardenas CARDIOTHORACIC PHYSIOTHERAPIST-SLASHER TENDER HELPER Work Phone: Start: 08-08-2024 Glucose measurement, blood Felicity Castellano MD Work Phone: Start: 08-08-2024 End: 08-08-2024 Glucose measurement, blood Felicity Castellano MD Work Phone: Start: 08-08-2024 Assay of magnesium Abram Schulteameh CARDIOTHORACIC PHYSIOTHERAPIST-SLASHER TENDER HELPER Work Phone: Start: 08-07-2024 Glucose measurement, blood Felicity Castellano MD Work Phone: Start: 08-07-2024 Glucose measurement, blood Felicity Castellano MD Work Phone: Start: 08-07-2024 Glucose measurement, blood Felicity Castellano MD Work Phone: Start: 08-07-2024 Glucose measurement, blood Felicity Castellano MD Work Phone: Start: 08-06-2024 Glucose measurement, blood Felicity Castellano MD Work Phone: Start: 08-06-2024 Assay of magnesium Nase rin M Nadine CARDIOTHORACIC PHYSIOTHERAPIST-SLASHER TENDER HELPER Work Phone: Start: 08-06-2024 Glucose measurement, blood Felicity Castellano MD Work Phone: Start: 08-06-2024 Glucose measurement, blood Felicity Castellano MD Work Phone: Start: 08-06-2024 Radiologic exam swal low function contrast study Shanna Russ CARDIOTHORACIC PHYSIOTHERAPIST-SLASHER TENDER HELPER Work Phone: Start: 08-06-2024 SPEECH MODIFIED KEAGAN UM SWALLOW Shanna Russ CARDIOTHORACIC PHYSIOTHERAPIST-SLASHER TENDER HELPER Work Phone: Start: 08-06-2024 Glucose measurement, blood Felicity Castellano MD Work Phone: Start: 08-05-2024 Glucose measurement, blood Felicity Castellano MD Work Phone: Start: 08-05-2024 Assay of magnesium Nase rin M Nadine CARDIOTHORACIC PHYSIOTHERAPIST-SLASHER TENDER HELPER Work Phone: Start: 08-05-2024 Glucose measurement, blood Felicity Castellano MD Work Phone: Start: 08-05-2024 Glucose measurement, blood Felicity Castellano MD Work Phone: Start: 08-05-2024 Echo tthrc r-t 2d w/wom-mode compl spec&colr d Taran Traore CARDIOTHORACIC PHYSIOTHERAPIST-SLASHER TENDER HELPER Work Phone: Start: 08-05-2024 Glucose measurement, blood Felicity Castellano MD Work Phone: Start: 08-05-2024 Assay of magnesium Nase rin M Nadine CARDIOTHORACIC PHYSIOTHERAPIST-SLASHER TENDER HELPER Work Phone: Start: 08-05-2024 Glucose measurement, blood [...] Phone: Start: 08-04-2024 Assay of magnesium Abram Hwang Nadine CARDIOTHORACIC PHYSIOTHERAPIST-SLASHER TENDER HELPER Work Phone: Start: 08-04-2024 Glucose measurement, blood Richard Mejia MD Work Phone: Start: 08-03-2024 Ct head/brain w/o co ntrast material Shaila Méndez PA-C Start: 08-03-2024 Sodium serum plasma or whole blood Shanna Denise MD Work Phone: Start: 08-03-2024 Glucose measurement, blood Richard Mejia MD Work Phone: Start: 08-03-2024 Radiologic exam abdo men 1 view Balbir Mccoy CARDIOTHORACIC PHYSIOTHERAPIST-SLASHER TENDER HELPER Work Phone: Start: 08-03-2024 Glucose measurement, blood [...] brain stem w/o contrast material Taran Traore CARDIOTHORACIC PHYSIOTHERAPIST-SLASHER TENDER HELPER Work Phone: Start: 08-03-2024 ABORH TYPE RECONFIRMATION Cindy CORDOVA Work Phone: Start: 08-03-2024 Assay of magnesium Abram Mccoy CARDIOTHORACIC PHYSIOTHERAPIST-SLASHER TENDER HELPER Work Phone: Start: 08-02-2024 Glucose measurement, blood [...] Performed By: #### X M #### [facility] ([facility]) [facility] [address] [place] [address] Start: 08-02-2024 EXTRA MICRO Taran Traore CARDIOTHORACIC PHYSIOTHERAPIST-SLASHER TENDER HELPER Work Phone: Start: 08-02-2024 Hemoglobin glycosylated a1c Balbir Mccoy CARDIOTHORACIC PHYSIOTHERAPIST-SLASHER TENDER HELPER Work Phone: Start: 08-02-2024 Hepatic function panel Balbir Mccoy CARDIOTHORACIC PHYSIOTHERAPIST-SLASHER TENDER HELPER Work Phone: Start: 08-02-2024 Iadna s aureus ampli fied probe tq Balbir Mccoy CARDIOTHORACIC PHYSIOTHERAPIST-SLASHER TENDER HELPER Work Phone: Start: 08-02-2024 URINALYSIS REFLEX TO CULTURE Taran Traore CARDIOTHORACIC PHYSIOTHERAPIST-SLASHER TENDER HELPER Work Phone: Start: 08-02-2024 Urnls dip stick/tabl et reagent auto microscopy Taran Traore CARDIOTHORACIC PHYSIOTHERAPIST-[facility] Work Phone: Start: 08-02-2024 SARS-CoV-2, Influenz a [...] Author Start: 08-15-2025 Complete blood count Hemoglobin/Hematocrit [facility] Start: 08-15-2025 Creatinine measurement Serum Creatinine [facility] Start: 08-02-2025 Thyroid stimulating hormone measurement [facility] Start: 06-26-2025 Annual PCP Team Chronic Disease Visit Annual PCP Team Chronic Disease Visit [facility] Start: 05-31-2025 Annual PCP Team Chronic Disease Visit Annual PCP Team Chronic Disease Visit [facility] Start: 05-31-2025 Covid-19 Vaccine () Covid-19 Vaccine () [facility] Comment on above: Postponed from 01/14/2024 (Declined at t his time) Start: 05-31-2025 Pneumococcal Vaccine: 50+ (2 of 2 - PPSV23) Pneumococcal Vaccine: 50+ (2 of 2 - PPSV23) [facility] Comment on above: Postponed from 12/19/2019 (Declined at t his time) Start: 05-23-2025 Creatinine measurement Serum Creatinine [facility] Start: 05-23-2025 Hepatitis B screening Urine Albumin:Creatinine Ratio [facility] Start: 05-23-2025 Hepatitis B surface antibody level LDL Cholesterol [facility] Start: 02-02-2025 Hemoglobin A1c measurement HbA1C [facility] Start: 01-13-2025 Influenza vaccination [facility] Start: 01-03-2025 Glaucoma screening Dilated Retinal Exam [facility] Start: 12-24-2024 End: 12-24-2024 Patient encounter procedure 12/24/2024 9:20 AM EDT Office Visit Family [facility] [address] [place] [phone] Kameron Caruso MD [address] [place] [id number] 6 month follow up Family [facility] Comment on above: 6 month follow up Start: 11-28-2024 End: 02-27-2025 Comprehensive metabolic 2000 panel - Serum or Plasma COMPREHENSIVE METABOLIC PANEL Lab Routine Essential hypertension, benign Chronic kidney disease, stage 3a (HCC) Hyperlipidemia, unspecified hyperlipidemia type Expected: 11/28/2024 (Approximate), Expires: 02/27/2025 [facility] Work Phone: Comment on above: Expected: 11/28/2024 (Approximate), Expi res: 02/27/2025 Start: 11-28-2024 End: 02-27-2025 Hemoglobin A1c in Blood HEMOGLOBIN A1C Lab Routine Expected: 11/28/2024 (Approximate), Expires: 02/27/2025 [facility] Comment on above: Expected: 11/28/2024 (Approximate), Expi res: 02/27/2025 Start: 11-28-2024 End: 02-27-2025 Lipid 1996 panel - Serum or Plasma LIPID PANEL BASIC Lab Routine Essential hypertension, benign Hyperlipidemia, unspecified hyperlipidemia type Expected: 11/28/2024 (Approximate), Expires: 02/27/2025 [facility] Comment on above: Expected: 11/28/2024 (Approximate), Expi res: 02/27/2025 Start: 11-28-2024 End: 02-27-2025 Thyrotropin [Units/volume] in Serum or Plasma THYROID STIMULATING HORMONE Lab Routine Hypothyroidism, unspecified type Expected: 11/28/2024 (Approximate), Expires: 02/27/2025 [facility] Comment on above: Expected: 11/28/2024 (Approximate), Expi res: 02/27/2025 Start: 11-27-2024 Annual PCP Team Chronic Disease Visit Annual PCP Team Chronic Disease Visit [facility] Start: 11-27-2024 Anxiety Screening Anxiety Screening [facility] Start: 11-27-2024 Depression Screening Depression Screening [facility] Start: 11-27-2024 RSV Vaccine (1 - 1-dose 60+ series) RSV Vaccine (1 - 1-dose 60+ series) [facility] Comment on above: Postponed from 2004 (Declined at t his time) Start: 11-27-2024 RSV Vaccine (1 - 1-dose 75+ series) RSV Vaccine (1 - 1-dose 75+ series) [facility] Comment on above: Postponed from 10/26/2019 (Declined at t his time) Start: 11-26-2024 Creatinine measurement Serum Creatinine [facility] Start: 11-26-2024 Hepatitis B surface antibody level LDL Cholesterol [facility] Start: 11-20-2024 [facility] Start: 11-11-2024 [facility] Comment on above: Postponed from 01/14/2024 (Declined at t his time) Start: 10-08-2024 End: 10-08-2024 ambulatory [facility] Start: 10-02-2024 Evaluation of diagnostic study results 12 Lead EKG performed by [facility] Start: 08-02-2024 [facility] Start: 08-02-2024 SARS-CoV-2, Influenza & RSV (PCR) SARS-CoV-2, Influenza & RSV (PCR) [facility] Start: 08-02-2024 End: 08-02-2024 [facility] Start: 08-02-2024 Electrocardiographic procedure [facility] Start: 08-02-2024 Oxygen therapy [facility] Start: 07-24-2024 End: 10-23-2024 Thyrotropin [Units/volume] in Serum or Plasma THYROID STIMULATING HORMONE Lab Routine Hypothyroidism, unspecified type Expected: 07/24/2024, Expires: 10/23/2024 [facility] Work Phone: Comment on above: Expected: 07/24/2024, Expires: Start: 07-24-2024 End: 10-23-2024 Thyroxine (T4) free [Mass/volume] in Serum or Plasma T4 FREE/FREE THYROXINE Lab Routine Hypothyroidism, unspecified type Expected: 07/24/2024, Expires: 10/23/2024 [facility] Comment on above: Expected: 07/24/2024, Expires: Start: 06-25-2024 End: 06-25-2024 Patient encounter procedure 06/25/2024 9:40 AM EST Office Visit [facility] [address] [place] [place] [id number] Kameron Caruso MD [address] [place] [phone] 1 mo f/u, new dx afib. [facility] Comment on above: 1 mo f/u, new dx afib. Start: 06-11-2024 End: 06-11-2024 Patient encounter procedure 06/11/2024 8:50 AM EST Office Visit Cardiology [address] [place] [address] Atrial fibrillation, unspecified type (HCC) [I48.91] Cardiology Comment on above: Atrial fibrillation, unspecified type (H CC) [I48.91] Start: 05-30-2024 Annual PCP Team Chronic Disease Visit Annual PCP Team Chronic Disease Visit [facility] Start: 05-30-2024 End: 08-29-2024 Comprehensive metabolic 2000 panel - Serum or Plasma COMPREHENSIVE METABOLIC PANEL Lab Routine Type 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, unspecified CKD stage, unspecified whether residential insulin use (HCC) Essential hypertension, benign Chronic kidney disease, stage 3a (HCC) Hyperlipidemia, unspecified hyperlipidemia type Expected: 05/30/2024 (Approximate), Expires: 08/29/2024 [facility] Work Phone: Comment on above: Expected: 05/30/2024 (Approximate), Expi res: 08/29/2024 Start: 05-30-2024 Covid-19 Vaccine () Covid-19 Vaccine () [facility] Comment on above: Postponed from 01/13/2023 (Declined at t his time) Start: 05-30-2024 End: 08-29-2024 Hemoglobin A1c in Blood HEMOGLOBIN A1C Lab Routine Type 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, unspecified CKD stage, unspecified whether terminologist insulin use (HCC) Expected: 05/30/2024 (Approximate), Expires: 08/29/2024 [facility] Comment on above: Expected: 05/30/2024 (Approximate), Expi res: 08/29/2024 Start: 05-30-2024 Hepatitis C screening Hepatitis C Screening [facility] Comment on above: Postponed from 1962 (Declined at t his time) Start: 05-30-2024 End: 08-29-2024 Lipid 1996 panel - Serum or Plasma LIPID PANEL BASIC Lab Routine Type 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, unspecified CKD stage, unspecified whether terminologist insulin use (HCC) Essential hypertension, benign Hyperlipidemia, unspecified hyperlipidemia type Expected: 05/30/2024 (Approximate), Expires: 08/29/2024 [facility] Comment on above: Expected: 05/30/2024 (Approximate), Expi res: 08/29/2024 Start: 05-30-2024 End: 08-29-2024 Microalbumin/Creatinine [Mass Ratio] in Urine ALBUMIN/CREATININE RATIO, URINE Lab Routine Type 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, unspecified CKD stage, unspecified whether terminologist insulin use (HCC) Expected: 05/30/2024 (Approximate), Expires: 08/29/2024 [facility] Comment on above: Expected: 05/30/2024 (Approximate), Expi res: 08/29/2024 Start: 05-30-2024 Pneumococcal Vaccine: 65+ (2 of 2 - PPSV23 or PCV20) Pneumococcal Vaccine: 65+ (2 of 2 - PPSV23 or PCV20) [facility] Comment on above: Postponed from 12/19/2019 (Declined at t his time) Start: 05-30-2024 End: 08-29-2024 Thyrotropin [Units/volume] in Serum or Plasma THYROID STIMULATING HORMONE Lab Routine Hypothyroidism, unspecified type Expected: 05/30/2024 (Approximate), Expires: 08/29/2024 [facility] Comment on above: Expected: 05/30/2024 (Approximate), Expi res: 08/29/2024 Start: 05-30-2024 End: 05-30-2024 Patient encounter procedure 05/30/2024 9:40 AM EST Office Visit [facility] [address] [place] [address] Kameron Caruso MD [address] [place], [place] [phone] 6 mo f/u [facility] Comment on above: 6 mo f/u Start: 05-29-2024 Hemoglobin A1c measurement HbA1C [facility] Start: 05-16-2024 Creatinine measurement Serum Creatinine [facility] Start: 05-16-2024 Hepatitis B screening Urine Albumin:Creatinine Ratio [facility] Start: 05-16-2024 Hepatitis B surface antibody level LDL Cholesterol [facility] Start: 05-15-2024 Advance Directive Discussion Advance Directive Discussion [facility] Start: 01-14-2024 Influenza vaccination [facility] Start: 01-14-2024 [facility] Start: 01-04-2024 Glaucoma screening Dilated Retinal Exam [facility] Start: 01-04-2024 Hepatitis C antibody, confirmatory test Dilated Retinal Exam [facility] Start: 11-28-2023 End: 11-28-2023 Patient encounter procedure 11/28/2023 9:40 AM EDT Office Visit [facility] [address] [place] [address] Kameron Caruso MD [address] [place] [id number] 6 mo follow up [facility] Comment on above: 6 mo follow up Start: 11-26-2023 ANNUAL PCP TEAM CHRONIC DISEASE VISIT ANNUAL PCP TEAM CHRONIC DISEASE VISIT [facility] Start: 11-26-2023 BP CONTROLLED (<130/80) BP CONTROLLED (<130/80) [facility] Start: 11-23-2023 Complete blood count Hemoglobin/Hematocrit [facility] Start: 11-23-2023 HEMOGLOBIN/HEMATOCRIT HEMOGLOBIN/HEMATOCRIT [facility] Start: 11-23-2023 Hepatitis B surface antibody level LDL CHOLESTEROL [facility] Start: 11-23-2023 SERUM CREATININE SERUM CREATININE [facility] Start: 11-14-2023 Hemoglobin [facility]c [facility]C [facility] Start: 05-27-2023 ANNUAL PCP TEAM CHRONIC DISEASE VISIT ANNUAL PCP TEAM CHRONIC DISEASE VISIT [facility] Start: 05-27-2023 COVID-19 VACCINE (2 - Booster for Alyssa series) COVID-19 VACCINE (2 - Booster for Alyssa series) [facility] Comment on above: Postponed from 09/17/2020 (Declined at t his time) Start: 05-27-2023 HEPATITIS C SCREENING HEPATITIS C SCREENING [facility] Comment on above: Postponed from 1962 (Declined at t his time) Start: 05-25-2023 Hemoglobin A1c/Hemoglobin.total in Blood HBA1C [facility] Start: 05-19-2023 HEMOGLOBIN/HEMATOCRIT HEMOGLOBIN/HEMATOCRIT [facility] Start: 05-19-2023 Hepatitis B surface antibody level LDL CHOLESTEROL [facility] Start: 05-19-2023 SERUM CREATININE SERUM CREATININE [facility] Start: 05-15-2023 Advance Directive Discussion Advance Directive Discussion [facility] Start: 05-15-2023 Behavioral Health Screening Behavioral Health Screening [facility] Start: 03-02-2023 ANNUAL PCP TEAM CHRONIC DISEASE VISIT ANNUAL PCP TEAM CHRONIC DISEASE VISIT [facility] Start: 01-13-2023 Covid-19 Vaccine () Covid-19 Vaccine () [facility] Start: 01-13-2023 Influenza vaccination [facility] Start: 12-27-2022 Hepatitis C antibody, confirmatory test DILATED RETINAL EXAM [facility] Start: 11-24-2022 End: 01-24-2023 CBC panel - Blood by Automated count CBC Lab Routine Essential hypertension, benign Hypothyroidism, unspecified type Expected: 11/24/2022 (Approximate), Expires: 01/24/2023 [facility] Work Phone: Comment on above: Expected: 11/24/2022 (Approximate), Expi res: 01/24/2023 Start: 11-24-2022 End: 01-24-2023 Comprehensive metabolic 2000 panel - Serum or Plasma COMP METABOLIC PANEL Lab Routine Essential hypertension, benign Type 2 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, without long-term current use of insulin (HCC) Hyperlipidemia, unspecified hyperlipidemia type Expected: 11/24/2022 (Approximate), Expires: 01/24/2023 [facility] Work Phone: Comment on above: Expected: 11/24/2022 (Approximate), Expi res: 01/24/2023 Start: 11-24-2022 End: 01-24-2023 Hemoglobin A1c in Blood HGB A1C Lab Routine Type 2 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, without long-term current use of insulin (HCC) Expected: 11/24/2022 (Approximate), Expires: 01/24/2023 [facility] Work Phone: Comment on above: Expected: 11/24/2022 (Approximate), Expi res: 01/24/2023 Start: 11-24-2022 End: 01-24-2023 Lipid 1996 panel - Serum or Plasma LIPID PANEL BASIC Lab Routine Essential hypertension, benign Type 2 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, without long-term current use of insulin (HCC) Hyperlipidemia, unspecified hyperlipidemia type Expected: 11/24/2022 (Approximate), Expires: 01/24/2023 [facility] Work Phone: Comment on above: Expected: 11/24/2022 (Approximate), Expi res: 01/24/2023 Start: 11-24-2022 End: 01-24-2023 Thyrotropin [Units/volume] in Serum or Plasma TSH BLD Lab Routine Hypothyroidism, unspecified type Expected: 11/24/2022 (Approximate), Expires: 01/24/2023 [facility] Work Phone: Comment on above: Expected: 11/24/2022 (Approximate), Expi res: 01/24/2023 Start: 11-23-2022 3 comp foot exam completed DIABETIC FOOT EXAM [facility] Start: 11-23-2022 ANNUAL PCP TEAM CHRONIC DISEASE VISIT ANNUAL PCP TEAM CHRONIC DISEASE VISIT [facility] Start: 11-23-2022 Diabetic foot examination Diabetic Foot Exam [facility] Start: 11-20-2022 Hepatitis B screening URINE ALBUMIN:CREATININE RATIO [facility] Start: 11-20-2022 Hepatitis B surface antibody level LDL CHOLESTEROL [facility] Start: 11-20-2022 SERUM CREATININE SERUM CREATININE [facility] Start: 11-16-2022 Hemoglobin A1c/Hemoglobin.total in Blood HBA1C [facility] Start: 11-11-2022 Influenza vaccination INFLUENZA (#1) [facility] Comment on above: Postponed from 01/13/2022 (Declined at t his time) Start: 05-26-2022 End: 07-26-2022 CBC panel - Blood by Automated count CBC Lab Routine Essential hypertension, benign Stage 3b chronic kidney disease (HCC) Expected: 05/26/2022 (Approximate), Expires: 07/26/2022 [facility] Work Phone: Comment on above: Expected: 05/26/2022 [...] disease (HCC) Expected: 05/26/2022 (Approximate), Expires: 07/26/2022 [facility] Work Phone: Comment on above: Expected: 05/26/2022 (Approximate), Expi res: 07/26/2022 Start: 05-26-2022 End: 07-26-2022 Hemoglobin A1c in Blood HGB A1C Lab Routine Type 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, unspecified CKD stage, unspecified whether terminologist insulin use (HCC) Expected: 05/26/2022 (Approximate), Expires: 07/26/2022 [facility] Work Phone: Comment on above: Expected: 05/26/2022 (Approximate), Expi res: 07/26/2022 Start: 05-26-2022 End: 07-26-2022 Lipid 1996 panel - Serum or Plasma LIPID PANEL BASIC Lab Routine Essential hypertension, benign Hyperlipidemia, unspecified hyperlipidemia type Expected: 05/26/2022 (Approximate), Expires: 07/26/2022 [facility] Work Phone: Comment on above: Expected: 05/26/2022 (Approximate), Expi res: 07/26/2022 Start: 05-26-2022 End: 07-26-2022 Thyrotropin [Units/volume] in Serum or Plasma TSH BLD Lab Routine Hypothyroidism, unspecified type Expected: 05/26/2022 (Approximate), Expires: 07/26/2022 [facility] Work Phone: Comment on above: Expected: 05/26/2022 (Approximate), Expi res: 07/26/2022 Start: 05-23-2022 Hemoglobin A1c/Hemoglobin.total in Blood HBA1C [facility] Start: 05-18-2022 ANNUAL PCP TEAM CHRONIC DISEASE VISIT ANNUAL PCP TEAM CHRONIC DISEASE VISIT [facility] Start: 05-17-2022 Hepatitis B surface antibody level LDL CHOLESTEROL [facility] Start: 05-17-2022 SERUM CREATININE SERUM CREATININE [facility] Start: 05-15-2022 ADVANCE DIRECTIVE DISCUSSION ADVANCE DIRECTIVE DISCUSSION [facility] Start: 01-13-2022 Influenza vaccination [facility] Start: 01-11-2022 Hepatitis C antibody, confirmatory test DILATED RETINAL EXAM [facility] Start: 11-14-2021 Hemoglobin A1c/Hemoglobin.total in Blood HBA1C [facility] Start: 11-06-2021 Screening for malignant neoplasm of breast [facility] Start: 11-05-2021 3 comp foot exam [facility] Start: 11-05-2021 Adult depression screening assessment DEPRESSION SCREENING [facility] Start: 11-04-2021 Hepatitis B screening URINE ALBUMIN:CREATININE RATIO [facility] Start: 10-15-2021 Hepa vaccine adult dose for intramuscular use HEPATITIS A VACCINE ADULT IM Immunization/Injection Routine Need for vaccination Expected: 10/15/2021 [facility] Work Phone: Comment on above: Expected: 10/15/2021 Start: 10-15-2021 Tdap vaccine 7 yrs/> im TDAP VACCINE AGE 7+ IM Immunization/Injection Routine Need for vaccination Expected: 10/15/2021 [facility] Work Phone: Comment on above: Expected: 10/15/2021 Start: 05-15-2021 ADVANCE DIRECTIVE DISCUSSION ADVANCE DIRECTIVE DISCUSSION [facility] Start: 05-15-2021 DEPRESSION ASSESSMENT DEPRESSION ASSESSMENT [facility] Start: 10-23-2020 PNEUMOCOCCAL: 65+ (2 - PPSV23 if available, else PCV20) PNEUMOCOCCAL: 65+ (2 - PPSV23 if available, else PCV20) [facility] Start: 10-23-2020 PNEUMOCOCCAL: 65+ (2 - PPSV23 or PCV20) PNEUMOCOCCAL: 65+ (2 - PPSV23 or PCV20) [facility] Start: 10-16-2020 HEMOGLOBIN/HEMATOCRIT HEMOGLOBIN/HEMATOCRIT [facility] Start: 09-17-2020 COVID-19 VACCINE (2 - Booster for Alyssa series) COVID-19 VACCINE (2 - Booster for Alyssa series) [facility] Start: 12-19-2019 Pneumococcal vaccination [facility] Start: 12-19-2019 Pneumococcal Vaccine: 65+ (2 - PPSV23 or PCV20) Pneumococcal Vaccine: 65+ (2 - PPSV23 or PCV20) [facility] Start: 12-19-2019 PNEUMOCOCCAL: 65+ (2 - PPSV23 or PCV20) PNEUMOCOCCAL: 65+ (2 - PPSV23 or PCV20) [facility] Start: 11-08-2019 Screening for malignant neoplasm of colon [facility] Start: 10-26-2019 [facility] Start: 01-13-2019 Influenza vaccination Flu vaccine (#1) [place], [place] Start: 12-23-2018 Annual Wellness Visit (AWV) Annual Wellness Visit (AWV) [place], [place] Start: 2009 DEXA (modify frequency per FRAX score) DEXA (modify frequency per FRAX score) [place], [place] Start: 2009 Pneumococcal 65+ years Vaccine (1 of 1 - PPSV23) Pneumococcal 65+ years Vaccine (1 of 1 - PPSV23) [place] Start: 2009 Pneumococcal 65+ years Vaccine (1 of 2 - PCV13) Pneumococcal 65+ years Vaccine (1 of 2 - PCV13) [place] Start: 10-26-2007 Annual Wellness Visit (AWV) Annual Wellness Visit (AWV) [place] Start: 2004 Hepatitis B Vaccine (1 of 3 - Risk 3-dose series) Hepatitis B Vaccine (1 of 3 - Risk 3-dose series) [facility] Start: 2004 RSV Vaccine (1 - 1-dose 60+ series) RSV Vaccine (1 - 1-dose 60+ series) [facility] Start: 10-26-1999 Screening for osteoporosis DEXA (modify frequency per FRAX score) [place], [place] Start: 1994 Breast cancer screen Breast cancer screen [place], [place] Start: 1994 Colon cancer screen colonoscopy Colon cancer screen colonoscopy [place], [place] Start: 1994 Screening for malignant neoplasm of breast Breast cancer screen [place], [place] Start: 1994 Screening for malignant neoplasm of colon Colon cancer screen colonoscopy [place] Start: 1994 Shingles Vaccine (1 of 2) Shingles Vaccine (1 of 2) [place] Start: 1984 Lipid screen Lipid screen [place], [place] Start: 1965 Screening for malignant neoplasm of cervix [facility] Start: 10-26-1963 DTaP/Tdap/Td vaccine (1 - Tdap) DTaP/Tdap/Td vaccine (1 - Tdap) [place] Start: 10-26-1963 Third diphtheria, tetanus and acellular pertussis (DTaP) vaccination [facility] Start: 10-26-1963 Urine microalbumin profile [facility] Start: 1962 BP CONTROLLED (<130/80) BP CONTROLLED (<130/80) [facility] Start: 1962 HEPATITIS C SCREENING HEPATITIS C SCREENING [facility] Start: 1954 Lipid panel Lipid screen [place], [place] Start: 1944 Creatinine measurement Creatinine monitoring [place], [place] Start: 1944 Creatinine monitoring Creatinine monitoring [place], [place] Start: 1944 Hepatitis C screen Hepatitis C screen [place], [place] Start: 1944 Hepatitis C screening [facility] Start: 1944 Potassium monitoring Potassium monitoring [place], [place] Start: 1944 Screening for osteoporosis [facility] Start: 1944 Tetanus vaccination [facility] End: 01-09-2019 Blood glucose - POCT Blood glucose - POCT Point of Care Testing Routine One Time for 1 Occurrences starting 01/09/2019 until 01/09/2019 [place], [place] Comment on above: One Time for 1 Occurrences starting 12/14 until 01/09/2019 ECG COMPLETE [facility] Comment on above: Ordered: 05/31/2024 End: 05-31-2025 Echocardiography ECHO Cardiology Routine Atrial fibrillation, unspecified type (HCC) 1 Occurrences starting 05/31/2024 until 05/31/2025 [facility] Comment on above: 1 Occurrences starting 05/31/2024 until 05/31/2025 Patient referral [facility] Work Phone: End: 01-09-2019 Pulse Oximetry Spot Check Pulse Oximetry Spot Check Respiratory Care Routine One Time for 1 Occurrences starting 01/09/2019 until 01/09/2019 [facility] [place] Comment on above: One Time for 1 Occurrences starting 12/14 until 01/09/2019 End: 08-02-2024 PV FLUOROSCOPY OR [facility] End: 08-02-2024 Standard ECG [facility] Immunizations Immunization Date Immunization Notes Care Provider Paramjit hassan 07-23-2020 SARS-CoV-2 (COVID-19 ) Ad26 vaccine, recombinant SILVINO HA DO [employer] Comment on above: Result Comment: 2024: [id number] 02-27-2020 influenza, high dose seasonal, preservative-free aKmeron Caruso MD Work Phone: [facility] 02-27-2020 influenza virus vaccine, unspecified formulation Kameron Caruso MD Work Phone: [facility] 10-24-2019 pneumococcal conjuga te vaccine, 13 valent Kameron Caruso MD Work Phone: [facility] 10-24-2019 zoster vaccine recombinant Kameron Caruso MD Work Phone: [facility] 07-25-2019 influenza virus vaccine, unspecified formulation SILVINO DAE DO [employer] 07-25-2019 influenza, seasonal, injectable Kameron Caruso MD Work Phone: [facility] 07-25-2019 zoster vaccine recombinant Kameron Caruso MD Work Phone: [facility] 04-13-2015 influenza virus vaccine, unspecified formulation SILVINO DAE DO [employer] 05-01-2014 influenza virus vaccine, unspecified formulation SILVINO SCHEBEULAH DO [employer] 05-01-2014 influenza, high dose seasonal, preservative-free Kameron Caruso MD Work Phone: [facility] 02-22-2012 influenza virus vaccine, unspecified formulation Kameron Caruso MD Work Phone: [facility] Work Phone: 03-19-2007 influenza virus vaccine, unspecified formulation Kameron Caruso MD Work Phone: [facility] Work Phone: Payers Date Payer Category Payer Medicare [id number] 2024 Unknown [id number] 2024 Self-pay 2018 Medicare [employer] RE ADVANTAGE [facility]-MEDICARE ADVANTAGE xxxxxxxxxxx 2018-Present [phone] [address] [place] [address] xxxxxxxxxxx [id number] 2018 Unknown [id number] 2013 Medicare [employer] [place] [id number] 2013-Present [phone] [address] [place] [address] [facility] [id number] 2013 Medicare [id number] 2013 Medicare (Managed Care) 1.2. [id number] 2013 Medicare [id number] 1944 Unknown [id number] [id number] .627 1944 Unknown [id number] 2.16.840.1.670693.3.579.2 .732 1944 Unknown [id number] 2.16.840.1.605167.3.579.2 .627 1944 Unknown [id number] 2.16.840.1.531252.3.579.2 .594 1944 Unknown [id number] 2.16.840.1.810186.3.579.2 .594 Unknown [id number] 2.16.840.1.355066.3.579.2 .462 Unknown [id number] 2.16.840.1.974163.3.579.2 .462 Unknown [id number] 2.16.840.1.647369.3.579.2 .462 Unknown [id number] 2.840.1.265210.3.579.2 .462 Unknown [id number] 2.840.1.853949.3.579.2 .462 Unknown [id number] 2..840.1.791947.3.579.2 .462 Unknown [id number] 2.840.1.236679.3.579.2 .462 Unknown [id number] 2.840.1.443927.3.579.2 .462 Unknown [id number] 2..840.1.150208.3.579.2 .462 Unknown [id number] 2.16.840.1.786218.3.579.2 .462 Unknown [id number] 2.840.1.517557.3.579.2 .462 Unknown [id number] 2.16840.1.038872.3.579.2 .462 Unknown [id number] 2.16.840.1.346485.3.579.2 .462 Unknown [id number] 2.16.840.1.408543.3.579.2 .462 Unknown [id number] 2.16.840.1.950740.3.579.2 .462 Unknown [id number] 2.16.840.1.376872.3.579.2 .462 Unknown [id number] Social History Date Type Detail Facility Start: 01-09-2019 End: 08-02-2024 Tobacco smoking status NHIS Never smoker [facility] Start: 01-09-2019 End: 11-25-2022 Alcohol intake Never [facility] Work Phone: Start: 12-24-2018 History SDOH Alcohol Frequency 1 [place], [place] Start: 1945 [facility] Start: 10-16-2019 Alcohol intake Lifetime non-d hortencia (finding) [place], [place] Exposure to SARS-CoV -2 (event) [facility] Start: 05-18-2021 End: 06-26-2024 Alcohol intake Current non-drinker of alcohol (finding) [facility] Start: 11-13-2021 End: 03-02-2022 Exposure to SARS-CoV-2 (event) Not sure [facility] Start: 02-02-2011 End: 03-02-2022 Tobacco use and exposure Smokeless tobacco non-user [facility] Start: 11-25-2022 End: 11-28-2023 History of Social function [facility] Work Phone: Adult Depression Screening Assessment 0 [facility] Work Phone: Start: 06-22-2005 End: 08-02-2024 Sex Female (finding) [facility] Start: 1945 Sex Assigned At Female [facility] Sexual Orientation Tyler krueger Medical Equipment Procedure Code Equipment Code Equipment Original Text Equipment Identifier Dates [id number], [id number], [id number] Start: 11-30-2020 End: 04-08-2023 Comment on above: [...] 09-09-2024 Functional Status Room check performed Gillian anny [facility] 09-09-2024 Functional Status [facility] 09-09-2024 Functional Status Skin Care Prev entative Intervention(s) heel(s)s elevated [facility] 09-08-2024 Functional Status [facility] 09-08-2024 Functional Status [facility] 09-06-2024 Functional Status 11pm-7am [facility] 09-06-2024 Functional Status Antiembolism S tocking On/Re-applied bilateral knee high [facility] 09-05-2024 Functional Status Oral Care Maximum wilfred tance [facility] 09-05-2024 Functional Status [facility] 09-05-2024 Functional Status Done [facility] 09-04-2024 Functional Status [facility] 09-04-2024 Functional Status [facility] 09-03-2024 Functional Status NPO Status Maintained A maryamgonzalo [facility] 09-03-2024 Functional Status None [facility] 09-03-2024 Functional Status [facility] 08-29-2024 Functional Status [facility] 08-29-2024 Functional Status [facility] 08-27-2024 Functional Status Orthotics, Dev ice Worn Per Schedule Yes [facility] 08-27-2024 Functional Status [facility] 08-26-2024 Functional Status [facility] 08-23-2024 Functional Status [facility] 08-23-2024 Functional Status Breakfast Percent 25 Gillian [facility] 08-20-2024 Functional Status [facility] 08-19-2024 Functional Status [facility] 08-16-2024 Functional Status Single level h ome, basement laundry [facility] 08-16-2024 Functional Status Outside Stairs Rail Rail on left going up [facility] 08-15-2024 Functional Status Sensory Defici ts Speech deficit [facility] 10-14-2014 Are you deaf, or do you have serious difficulty hearing No [facility] 10-14-2014 Are you blind, or do you have serious difficulty seeing, even when wearing glasses No [facility] 10-14-2014 Do you have serious difficulty walking or climbing stairs No [facility] 10-14-2014 Do you have difficul ty dressing or bathing No [facility] 10-14-2014 Because of a physica l, mental, or emotional condition, do you have difficulty doing errands alone such as visiting a physician's office or shopping No [facility] Mental Status Date Assessment Result Facility 09-09-2024 Mental Status Does not interact [facility] 09-08-2024 Mental Status [facility] gregory 09-08-2024 Mental Status [facility] 08-02-2024 Cognitive function Awake;Alert;F ollows Commands [facility] Work Phone: 10-14-2014 Because of a physica l, mental, or emotional condition, do you have serious difficulty concentrating, remembering, or making decisions No [facility] Clinical Notes 11-03-2020 to 09-09-2024 Note Date [...] KAMERON CARUSO MD When:Within 3-7 days Where:[address] [place] [address]- Additional Information: Please schedule follow up PCP appointment for after discharge from [facility], Bring discharge instructions with you Follow Up with RIMMA POWERS MD When:10/08/2024 04:00 PM EDT Where:[facility] ([address], [place]) Additional Information: Neurosurgeon The Following Activity and [...] standard right Seat cushion, 99 month(s), Tyler [phone], 09/02/24 8:22:00 EDT Transfer of Care Wound [...] 08/04/2017 Document Revised: 05/04/2018 Document Reviewed: 08/04/2017 ElseSimply Measured Patient Education 2020 [employer] Additional Information VACCINATE! IT SAVES LIVES! Members of the community who have not yet received the COVID-19 vaccine and would like to receive it can visit one of [facility] vaccine clinics. There are many vaccine clinic locations within the [facility]. For locations and available times, please visit [email or web address] It is important to note that some COVID mobile vaccine clinics are held outdoors and may be canceled in rainy or stormy conditions. To learn more about pediatric vaccinations (ages 5-11), we invite you to visit the [facility] webpage. [email or web address]://www.[email or web address]/pages /8012-Yixgl-Yinhmvveeob-Frequently-A sked-Questions.html To learn more about the COVID-19 vaccine, we invite you to visit the CDC website for a list of frequently asked questions.https://www.cdc.gov/woodard virus/2019-ncov/vaccines/faq.html [facility] Patient Portal Access Instructions: Stay connected with your healthcare team and access your personal medical information anytime with the [facility] Patient Portal. Please follow the directions below to create your Ascentis account: 1.Access the email account you provided upon registration to the hospital/physician office.2.Look for an invitation email from [facility].3.Open the email and access the invitation link: Accept Invitation to [facility].4.Fill in the required richards to create your account. To access your account, visit [email or web address]. Click the blue button labeled "Access Patient [...] you will allow to register on the [facility] Patient Portal for access to your information. You can also access the [facility] Patient Portal on the [facility] Anywhere dahlia. Simply click on "Patient Portal" and then log into your account. If you would like to receive a full copy of your medical records, please contact the [facility] Medical Records Department by calling [phone], Monday through Monday between 8 a.m. and [...] Call your local pharmacy or go to http://Extreme Startups.Stylect/9N8Ol3c to find one close to you.3.Make use of household items: Use cat litter or old coffee grounds to dispose medications if other options are not available. Mix your drugs with these household products, seal them in an airtight container and throw it into the garbage. Call [facility]: [phone] to be sure your drugs can be [...] aware that I should contact my doctor. 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: ___ Date/Time: Relationship to Patient: _ [...] KAMERON CARUSO MD When:Within 3-7 days Where:[address] [place] [address]- Additional Information: Please schedule follow up PCP appointment for after discharge from SNF, Bring discharge instructions with you Follow Up with RIMMA POWERS MD When:10/08/2024 04:00 PM EDT Where:[facility] ([address], [place]) Additional Information: Neurosurgeon The Following Activity and [...] standard right Seat cushion, 99 month(s), Tyler [phone], 09/02/24 8:22:00 EDT Transfer of Care Wound [...] 08/04/2017 Document Revised: 05/04/2018 Document Reviewed: 08/04/2017 [employer]omat.pl Patient Education 2020 [employer] Inc. Additional Information VACCINATE! IT SAVES LIVES! Members of the community who have not yet received the COVID-19 vaccine and would like to receive it can visit one of [facility] vaccine clinics. There are many vaccine clinic locations within the [facility]. For locations and available times, please visit [email or web address] It is important to note that some COVID mobile vaccine clinics are held outdoors and may be canceled in rainy or stormy conditions. To learn more about pediatric vaccinations (ages 5-11), we invite you to visit the [facility] webpage. https://www.[email or web address].org/pages /8215-Dtyku-Noaluevulry-Frequently-A sked-Questions.html To learn more about the COVID-19 vaccine, we invite you to visit the CDC website for a list of frequently asked questions.https://www.cdc.gov/woodard virus/2019-ncov/vaccines/faq.html [facility] Patient Portal Access Instructions: Stay connected with your healthcare team and access your personal medical information anytime with the [facility] Patient Portal. Please follow the directions below to create your [facility] account: 1.Access the email account you provided upon registration to the hospital/physician office.2.Look for an invitation email from [facility].3.Open the email and access the invitation link: Accept Invitation to [facility].4.Fill in the required richards to create your account. To access your account, visit [email or web address]. Click the blue button labeled "Access Patient [...] you will allow to register on the [facility] Patient Portal for access to your information. You can also access the [facility] Patient Portal on the [facility] dahlia. Simply click on "Patient Portal" and then log into your account. If you would like to receive a full copy of your medical records, please contact the [facility] Medical Records Department by calling [phone], Monday through Monday between 8 a.m. and [...] Call your local pharmacy or go to http://bit.ly/4T8La1f to find one close to you.3.Make use of household items: Use cat litter or old coffee grounds to dispose medications if other options are not available. Mix your drugs with these household products, seal them in an airtight container and throw it into the garbage. Call [facility]: [phone] to be sure your drugs can be [...] been reviewed and explained to me and I,ACUNA LINDSAY Veronica understand my current condition and have read and understand these discharge instructions. I have received a written copy of the plan/instructions. If I have questions, I am aware that I should contact my doctor. 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 She was [facility] stay 08/02 - 08/15 who has a history of CAD, DM2, atrial fibrillation and hypertension who presented to the ER after noting left-sided weakness and slurred speech. 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 [id number] Microgram PEG tube once a day. metoprolol [...] KAMERON CARUSO MD When:Within 3-7 days Where:[address] [place] [address]- Additional Information: Please schedule follow up PCP appointment for after discharge from SNF, Bring discharge instructions with you Follow Up with RIMMA POWERS MD When:10/08/2024 04:00 PM EDT Where:[facility] ([address], [place]) Additional Information: Neurosurgeon Follow Up Appointments No qualifying data available. Follow Up Labs/Studies Discharge Labs No Follow-up Labs Discharge Studies No Follow-up Studies Discharge Diet No qualifying data available. Discharge Activity No qualifying data available. Condition on Discharge Stable Discharge Disposition half-way facility Information Provided To Patient and family [...] Alarcon RN on 09/08/2024 05:39 PM [facility] 09-08-2024 Nurse Progress note Pt had 250ml residual, 12:30pm bolus was held! Digitally Signed by Rob Alarcon RN on 09/08/2024 12:47 PM Tyler[facility] 09-06-2024 Physical medicine and rehab Progress note [...] and slurred speech. She originally presented to [facility] with CT of the head was obtained showed no acute hemorrhage or large territory stroke. CTA showed mid right M1 occlusion however patient was not a TNK candidate. She was then transferred to a [facility] for further management. CT of head [...] Rate64(SEP 05 16:46)64(SEP 05 16:46)85(SEP 05 09:40) IWI144(SEP 05 16:36)138(SEP 05 16:36)H 158(SEP 05 09:52) [...] 08/04/2017 Document Revised: 05/04/2018 Document Reviewed: 08/04/2017 Rankomat.pl Patient Education 2020 [employer]. Follow Up Care 08/15/2024 08:51:25 With:RIMMA POWERS MD Address: [facility] ([address], [place]) When:10/08/2024 16:00:00 Comments:Neurosurgeon With:JONNIE BANSAL MD Address: [facility] When: Unknown Comments:GI, No appointment needed until PEG is ready to be removed or concerns arise With:KAMERON CARUSO MD Address: [address] [place] [address]- When:3-7 days Comments:Please schedule follow up PCP [...] less than 3 seconds. Ongoing hemiparesis VITALS XqxqzkSccaXVNjkzaRCIvB8FXQ2WhuxZv(kg ) 09/05 09:5236.3--384057WH 09/05 09:40----85----RA 09/04 23:3236.6--129001BM 09/04 21:2436.5--212903SC 09/04 16:01----72----RA 24 Hr Tmax: 36.6 at [...] 2 minutes, REPEAT x1., 1st dose location: [facility], 0, 08/15/24 1... glucose (Dextrose 50% [...] None Problems (6) CVA (cerebral vascular accident) (732461242) Diabetes mellitus (974245451) Dysphagia (60562798) Hyperlipidemia (92691085) Hypertension (7694528837) Osteoarthritis (2559168609) ASSESSMENT/PLAN: Right basal ganglia hemorrhage, status post [...] the presence of Catherine Newman APRN I, Catherine Newman APRN, personally performed the services described in this documentation, as scribed by, Destiny Santiago RN in my presence and it is both accurate and complete. Digitally Signed by CATHERINE NEWMAN on 09/05/2024 04:55 PM Tyler Garcia 09-05-2024 [...] area Neuro: Left upper extremity hemiparesis VITALS SmfxupYrreFLHyrckYOBmA6QZT2ZmtlFh(kg ) 09/04 23:3236.6--331409JS 09/04 21:2436.5--742208KR 09/04 16:01----72----RA 09/04 12:10--------97RA 09/04 10:5435.9--556533LZ 24 Hr Tmax: 36.6 at 09/04 23:32 [...] None Problems (6) CVA (cerebral vascular accident) (260036521) Diabetes mellitus (999314970) Dysphagia (34005279) Hyperlipidemia (34933595) Hypertension (4705325611) Osteoarthritis (3042827923) ASSESSMENT/PLAN: Acute right basal ganglia hemorrhage with [...] sugars closely. [facility] with neuro[facility] 10[facility]08 [facility] with ice chips only, [...] NANDO HUTTON DO on 09/05/2024 10:12 AM [facility] 09-04-2024 Physical medicine and rehab Progress note [...] and slurred speech. She originally presented to [facility] with CT of the head was obtained showed no acute hemorrhage or large territory stroke. CTA showed mid right M1 occlusion however patient was not a TNK candidate. She was then transferred to a [facility] for further management. CT of head [...] Rate64(SEP 03 15:52)64(SEP 03 15:52)90(SEP 03 08:28) VGE838(SEP 04 05:38)112(SEP 04 05:38)127(SEP 03 08:00) DBP70(SEP [...] area Neuro: Left upper extremity hemiparesis VITALS JfmuevTtioDAGexowAXBoQ1NCE0VuboYu(kg ) 09/03 21:4136.4--946198AC 09/03 15:52----64---- 09/03 08:46 09/03 08:28----90---- 09/03 08:0036.4--710157BT 24 Hr Tmax: 36.4 at 09/03 21:41 [...] SBP (mmHg) < 110, 1st dose location: [facility], 1, 08/15/24 17:09:00 EDT oxybutynin (oxybutynin 5 [...] None Problems (6) CVA (cerebral vascular accident) (678257299) Diabetes mellitus (233727805) Dysphagia (84246973) Hyperlipidemia (44834691) Hypertension (0653175220) Osteoarthritis (8673631445) ASSESSMENT/PLAN: Acute right basal ganglia hemorrhage with [...] HUTTON DO on 09/05/2024 08:57 AM Tyler [place] 09-03-2024 Note Subjective Patient states that she [...] area Neuro: Left upper extremity hemiparesis VITALS BpamdaCdjsOIDkbduLYQwZ9EJQ1IkbjSm(kg ) 09/03 00:2636.3--088290UL 09/02 21:5136.2--534006NN 09/02 16:56----88--98RA 09/02 10:40 RA 09/02 09:0936.0--293393WG 24 Hr Tmax: 37.0 at 09/02 05:55 [...] SBP (mmHg) < 110, 1st dose location: [facility], 1, 08/15/24 17:09:00 EDT oxybutynin (oxybutynin 5 [...] 2 minutes, REPEAT x1., 1st dose location: [facility], 0, 08/15/24 1... glucose (Dextrose 50% [...] None Problems (6) CVA (cerebral vascular accident) (363510850) Diabetes mellitus (175941451) Dysphagia (23839040) Hyperlipidemia (16154471) Hypertension (5224576464) Osteoarthritis (7484949173) ASSESSMENT/PLAN: Acute right basal ganglia hemorrhage with [...] HUTTON DO on 09/05/2024 08:57 AM Tyler [place] 09-02-2024 Note Exam Date Time Procedure Performing Provider Status 09/02/24 2:[address] Head or Brain w/o Contrast Brenda MCCLELLAN MD; Auth (Verified) [id number] ORIGINAL HISTORY: Lethargy COMPARISON: No TECHNIQUE: Routine [...] - 08/30/2024 10:09 AM EDT Marya with [facility] notified. [facility]04-18-2025 Miscellaneous Notes* Telephone Encounter - Fouzia Miller LPN - 08/30/2024 10:09 AM EDT [facility] * Telephone Encounter - Mj Glover APRN.CNP - 08/30/2024 9:19 AM EDT Please let HH know that Dr. Caruso's team will follow HH orders. Okay to proceed. Mj Glover APRN.CNP * Telephone Encounter - Jaiden Paulino RN - 08/30/2024 9:07 AM EDT Marya- [facility] reports patient was in [facility] with dx: stroke, and transferred to [facility]. Pt will be discharged from [facility] on 09/07/24 to home with [facility] SN PT OT ST & HHAide. Asking if pcp agreeable to follow for [facility]. Please phone Marya with verbal: [phone] documented in [facility] Telephone encounter Note * Telephone Encounter - Mj Glover APRN.CNP - 08/30/2024 9:19 AM EDT Please let know that Dr. Caruso's team will follow orders. Okay to proceed. Mj Glover APRN.GARRETT [facility]04-18-2025 Telephone encounter Note* Telephone Encounter - Jaiden Paulino RN - 08/30/2024 9:07 AM EDT [facility] reports patient was in [facility] with dx: stroke, and transferred to [facility]. Pt will be discharged from [facility] on 09/07/24 to home with [facility] SN PT OT ST & [facility]. Asking if pcp agreeable to follow for [facility]. Please phone Marya with verbal: [phone] [facility]04-14-2025 Note REFERRING PHYSICIAN: Silvino Ha DO. CONSULTING PSYCHOLOGIST: Matthew Gibson, PhD. REASON FOR REFERRAL: Neuropsychological exam. HISTORY OF PRESENT ILLNESS: Ms. Aucna is a 78-year-old right-handed white female admitted to [facility] from [facility] on 08/15/2024 after developing left-sided weakness and slurred speech. Initially seen at [facility] where brain CT was negative.CTA then [...] mild concussions suffered after a career in [employer]. No residual deficits reported. No other RESPIRATORY SUPERVISOR injuries or illnesses. MENTAL HEALTH HISTORY: No [...] of NPO. and Mrs. Acuna live in [place]. 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 She has a high school diploma from her hometown in [place], [place]. TEST RESULTS: I used the Cognistat, [...] be determined. MATTHEW GIBSON, PhD GM/NTS JOB#: [id number] DICTATION ID#: [id number] Digitally Signed by MATTHEW GIBSON PhD on 08/27/2024 08:21 AM Tyler [id number] Note* Exam Date Time Procedure Performing Provider Status 08/25/24 1:46 PM XR Hand and Wrist 6 Views Left Buck DUNNE DO; Auth (Verified) [id number] ORIGINAL EXAMINATION: 3 XRAY VIEWS OF THE [...] Views Left JAMAR DUNNE DO; Auth (Verified) [id number] ORIGINAL EXAMINATION: TWO XRAY VIEWS OF THE [...] Views Left JAMAR DUNNE DO; Auth (Verified) [id number] ORIGINAL EXAMINATION: TWO XRAY VIEWS OF THE [...] 1 View Contributor_system, FUJ I; Auth (Verified) [id number] ORIGINAL EXAMINATION: ONE XRAY VIEW OF THE [...] Plan noteExtracted from: Title:Clinical Document Author:EZEQUIEL HUSTON RN-SLASHER TENDER HELPER Date:08/16/24 Acute Inpatient Rehab Histor y and Physical Date of Service: 08/16/2024 Date of Admission: 08/15/2024 Attending Physician: Dr. [facility] 1.1 left body involvement, right brain stroke Etiologic Diagnosis Hemorrhagic infarct involving right basal ganglia, mass effect with effacement of right lateral ventricle, tiny infarct in right cerebellum History of Present Illness 78-year-old female noted to home in inpatient rehab from [facility] stay 08/02 - 08/15 who is past medical history of coronary artery disease, diabetes mellitus type 2, atrial relation, hypertension, osteoarthritis, and hyperlipidemia who presented to the emergency room with noted left-sided weakness and slurred speech. She originally presented to [facility] with CT of the head was obtained showed no acute hemorrhage or large territory stroke. CTA showed mid right M1 occlusion however patient was not a TNK candidate. She was then transferred to a [facility] for further management. CT of head [...] feedings. Patient deemed medically stable transferred to [facility] for physical and occupational [...] with spouse, first- floor set up. Primary Soft Crab Shedder: Self. Safe place to go: Yes. Lives [...] Rate80(AUG 15 20:06)80(AUG 15 20:06)80(AUG 15 20:06) VGC718(AUG 16 00:03)128(AUG 16 00:03)140(AUG 15 17:47) DBP76(AUG 16 00:03)76(AUG 16 00:03)80(AUG 15 17:47) 36hr Labs 08/15 1805 Blood Glucose, Xcciehouz112J Blood Glucose, Bbtanvabb822N Blood Glucose TSee Flowsheet Assessment/Plan Debility and [...] and it is both accurate and complete. [facility] 04-04-2025 Physical medicine and rehab Consult note INPATIENT REHAB MEDICAL CONSULT DATE OF ADMISSION: 08/16/2024 CC: Acute right basal hemorrhage HISTORY OF PRESENT ILLNESS: This is a 78-year-old female admitted to [facility] from [facility] stay 08/02 - 08/15 who has a history of CAD, DM2, atrial fibrillation and hypertension who presented to the ER after notingleft-sided weakness and slurred speech. Originally presented to [facility] where CT head was obtained showing [...] was deemed medically stable and transferred to [facility] for physical and occasional [...] Rate80(AUG 15 20:06)80(AUG 15 20:06)80(AUG 15 20:06) HEM072(AUG 16 00:03)128(AUG 16 00:03)140(AUG 15 17:47) DBP76(AUG [...] reviewed. 36hr Labs 08/15 1805 Blood Glucose, Cyvjwemtb544E Blood Glucose, Mroytudsl158C Blood Glucose TSee Flowsheet ASSESSMENT AND PLAN: [...] acute rehabilitation stay at [facility] with the goal of [...] on 08/17/2024 04:53 PM [id number] Physical medicine and rehab History and physical [...] noted to home in inpatient rehab from [facility] stay 08/02 -08/15 who is past medical history of coronary artery disease, diabetes mellitus type 2, atrial relation, hypertension, osteoarthritis, and hyperlipidemia who presented to the emergency room with noted left-sided weakness and slurred speech. She originally presented to [facility] with CT of the head was obtained showed no acute hemorrhage or large territory stroke. CTA showed mid right M1 occlusion however patient was not a TNK candidate. [facility] [...] feedings. Patient deemed medically stable transferred to [facility] inpatient rehab unit for physical and occupational [...] with spouse, first- floor set up. Primary Soft Crab Shedder: Self. Safe place to go: Yes. Lives [...] Rate80(AUG 15 20:06)80(AUG 15 20:06)80(AUG 15 20:06) HGO080(AUG 16 00:03)128(AUG 16 00:03)140(AUG 15 17:47) DBP76(AUG 16 00:03)76(AUG 16 00:03)80(AUG 15 17:47) 36hr Labs 08/15 1805 Blood Glucose, [id number] Blood Glucose, [id number] Blood Glucose TSee Flowsheet Assessment/Plan Debility and [...] EZEQUIEL HUSTON on 08/22/2024 05:17 AM Tyler [id number] Miscellaneous Notes* Nursing Notes - Robson Steel [...] pacing over x3-5 sessions Outcome: Ongoing Problem: PARKING LOT MANAGER - Cognition Goal: Orientation Log - [...] pacing over x3-5 sessions Outcome: Ongoing Problem: PARKING LOT MANAGER - Cognition Goal: Orientation Log - [...] for buried bumper syndrome. - If used terminologist, initial PEG should be changed in 6-12 months depending on tube condition. - No plans for repeat outpatient EGD at this time based on clinical status Jonnie Mccabe MD Division of Gastroenterology, Hepatology, and Nutrition Clinical Fellow PGY-4 Pager: [phone] * Plan of Care - Manisha Cheema [...] what the specific medication was. Daughter, Keagan [phone] would be able to answer questions. Catherine [...] 08/07/2024 5:00 PM EDT [facility] admission [facility], from another [facility] inpatient unit a dual [...] oropharyngeal swallow function to most appropriately guide PARKING LOT MANAGER plan of care Outcome: Met Goal: [...] readiness for diet advancement Outcome: Met Problem: PARKING LOT MANAGER - Cognition Goal: Orientation Log - [...] better assess deficits and most appropriately guide PARKING LOT MANAGER plan of care Outcome: Met Goal: [...] of Care: 1. Diet: NPO. Advancement per team/PARKING LOT MANAGER recommendation 2. Ordered TF: Glucerna 1.5 [...] readiness for diet advancement Outcome: Ongoing Problem: PARKING LOT MANAGER - Cognition Goal: Orientation Log - [...] better assess deficits and most appropriately guide PARKING LOT MANAGER plan of care Outcome: Ongoing * Nursing Notes - Aniyah Torre RN - 08/02/2024 6:13 PM EDT [place] [facility] a dual RN initial assessment [...] change from previous assessment. Pt [place] [facility] [place] accompanied by Denae RN. T [...] under emergency consent. SURGEON(S): Prema Ramos MD ATTENDING PATHOLOGIST(S): None ANESTHESIA: Monitored anesthesia care DESCRIPTION OF [...] - 08/02/2024 3:26 PM EDT Lindsay Acuna ([id number]) PRE OPERATIVE DIAGNOSIS Cerebral infarction due to [...] - Primary ANESTHESIOLOGIST Anesthesiologist: Tameka Ruth MD SPINDLE PLUMBER: Bebo Barboza APRN-SPINDLE PLUMBER SURGICAL STAFF Pr Manager: Rachell Ruffin RN Extruding Press Adjuster: Paulina Muñiz; Radha Morales COMPLICATIONS None ESTIMATED BLOOD LOSS Minimal SPECIMENS No specimen sent * No specimens in log * Prema Ramos MD August 02, 2024 3:26 PM [facility] of Present illness Narrative* OWEN Benavides - 08/15/2024 9:01 AM EDT Care Management Discharge Note Selected Continued Care - Admitted Since 08/02/2024 Destination Coordination complete. Service Provider Services Address Phone Fax Patient Preferred [facility] [address] [place] [address] -- -- Internal Comment last updated by OWEN Benavides 08/15/2024 0901 Report fax: [phone] Transport Request Mode of Transfer: [facility] Name of Discharge Transport Company: [facility] Discharge Transport ETA: 08/15/2024 @ 1030 Patient medically stable for discharge per physician/medical team. Pt has neurology appointment scheduled. Pt/ to schedule appointment with PCP. Patient/Road Mender remain in agreement withthe discharge plan. BULMARO Allen Pig Machine Operator * OWEN Benavides - 08/14/2024 3:17 PM EDT Placement Plan Expected Discharge Date: 08/15/2024 Referred Level of Care: IPR Current Referrals and Status 1. [facility]-accepted IPR obtained precertification for Pt starting tomorrow. Pt is set-up to leave via ambulance tomorrow at 1030. CM updated Pt's by phone. IPR will provide CM with the best phone and fax numbersfor RN report tomorrow morning. BULMARO Allen Pig Machine Operator * Marybeth Ayoub - 08/14/2024 2:51 PM EDT Care Management Progress Note Transportation for discharge arranged Mode of Transfer: (P) BLS Name of Discharge Transport Company: (P) [employer] [facility]charge [facility] ETA: (P) 08/15/2024 @ 1030 Pick-up from [facility] 1032/A Destination [place] [facility] [address] [facility] [place] [address] OWEN Morrell Pig Machine Operator Electrician'S Helper [phone] * Jazzy Aguiar - 08/14/2024 9:47 AM [...] position Mobility Assessment/Intervention: Supine to Sit Mobility Saline Level: Supine->Sit: moderate assist (50% patient effort) Physical Assist: Supine->Sit: 2 person assist Bed Features/Set-up: Supine->Sit: Head of bed elevated, Use of bed rail Skilled Rationale: Verbal cues, Tactile cues, Hand placement, Positioning, Technique of activity Skilled Intervention/Details: Supine->Sit: Cues for technique of transfer and pt needing increased assistance for managing legs and trunk to EOB positioning Transfer Assessment/Intervention: Sit to Stand Transfer Saline Level: Sit->Stand: moderate assist (50% patient effort) [...] hand held support Stand to Sit Transfer Saline Level: Stand->Sit: moderate assist (50% patient effort) Physical Assist: Stand->Sit: 2 person assist Assistive Device: Stand->Sit: gait belt, hand held assist Skilled Rationale: Verbal cues, Tactile cues, Hand placement, Positioning, Controlled descent for sitting Skilled Intervention/Details: Stand->Sit: Cues for positioning with BSC and recliner, pt provided bilat hand held support and needing increased support for managing a controlled descent Bed-Chair Transfer Saline Level: Bed<->Chair: maximum assist (25% patient effort) [...] managing L side during transfer Toilet Transfer Saline Level: Toilet: moderate assist (50% patient effort) [...] upright gaze when standing Outcome Score(s): CURRENT [facility] Daily Activity Inpatient Short Form Putting on/Taking Off Lower Body Clothin - Total Assistance Bathin - A Lot of Assistance Toiletin - Total Assistance Putting on/Taking Off Upper Body Clothin - A Little Assistance Groomin - A Little Assistance Eatin - Total Assistance CURRENT [facility] Activity Raw Score: 11 CURRENT [facility] Activity Functional Limitation/Modifier: 70.42% Currently Impaired [...] person, Oriented to place, Oriented to situation ("[place]" "hospital" "May" "2024" "stroke") Following Commands: Follows [...] blocking Mobility Assessment/Intervention: Supine to Sit Mobility Saline Level: Supine->Sit: moderate assist (50% patient effort) [...] sitting) Transfer Assessment/Intervention: Sit to Stand Transfer Saline Level: Sit->Stand: moderate assist (50% patient effort) Physical Assist: Sit->Stand: 2 person assist Assistive Device: Sit->Stand: gait belt Skilled Rationale: Arm in arm, Patellar block, Ischial assist, Facilitate anterior shift, Full extension to upright positioning/posture, Finding/maintaining midline positioning Skilled Intervention/Details: Sit->Stand: repeat cues to avoid significant L lean with improvement last standing. x1 from EOB, x2 from BSC Stand to Sit Transfer Saline Level: Stand->Sit: moderate assist (50% patient effort) Physical Assist: Stand->Sit: 2 person assist Assistive Device: Stand->Sit: gait belt Skilled Rationale: Arm in arm, Controlled descent for sitting Skilled Intervention/Details: Stand->Sit: last trial assisted R hand to recliner arm rest and ongoing cues for wt shift to R Bed-Chair Transfer Saline Level: Bed<->Chair: maximum assist (25% patient effort) [...] Mobility Assessment/Intervention: Stairs Assessment/Intervention: Outcome Score(s): CURRENT [facility] Basic Mobility Inpatient Short Form Turning [...] with a railin - Total Assistance CURRENT [facility] Mobility Raw Score: 8 CURRENT [facility] Mobility Functional Limitation: 86.62% Impaired in Basic Mobility Interventions: Intervention 1 Intervention Name: [facility] supine and sitting Details: education [...] 10 Treating Therapist: Shaina Rosales PT, DPT [id number] 08/14/2024 Additional Details: PT Co-Eval/Treatment Information Co-evaluation/co-treatment [...] Physical Therapy Discharge Summary. * Tanja Cason, PARKING LOT MANAGER - 08/14/2024 8:37 AM EDT Acute [...] on the below outcome measures/assessment score(s) and PARKING LOT MANAGER clinicaljudgment, discharge destination recommendation is: IPR Barriers to discharge home: 1:1 assist needed for IADL's including medication management and finances Supporting factors for discharge setting: Impaired swallow function limiting nutritional status andsafety with oral intake, Impaired cognitive skills limiting safety/insight Acute PARKING LOT MANAGER Outcomes Tracking Communicate basic wants and [...] independent carry over. Strong family support. Ongoing PARKING LOT MANAGER s indicated. Subjective information: Alert, present. SO referenced his notes from yesterday and reportedcarry over of exercises yesterday. Patient with zero recall Pain: Nonverbal indicator not present Precautions: Patient Safety Communication Prior to Visit: Nursing Lines/Tubes/Drains (Rehab Status): Telemetry, Tube feed Existing Precautions/Restrictions: fall Respiratory Status: O2 Sat (%): 96 % (08/14 0711) O2 Device: room air (08/14 0947) Acute PARKING LOT MANAGER Goals Plan of Care by Tanja Cason PARKING LOT MANAGER at 08/14/2024 2:42 PM Version 1 [...] RoM to achieve technique. Outcome: Ongoing Problem: PARKING LOT MANAGER - Cognition Goal: Orientation Log - [...] next session: 08/14 - ongoing exercises, education PARKING LOT MANAGER Outcomes: FOIS 2 Speech Language Pathologist: [...] of session: none altered Needs in reach. PARKING LOT MANAGER Evaluation and Treatment Time Speech Therapy - Individual 14925: 14 Swallowing Dysfunction Treatment 94686: 14 Upon discontinuation of Acute Care Speech [...] on the below outcome measures/assessment score(s) and PARKING LOT MANAGER clinicaljudgment, discharge destination recommendation is: Inpatient Rehab Facility Barriers to discharge home: 1:1 assist needed for IADL's including medication management and finances Supporting factors for discharge setting: Impaired swallow function limiting nutritional status andsafety with oral intake, Impaired cognitive skills limiting safety/insight Acute PARKING LOT MANAGER Outcomes Tracking Communicate basic wants and [...] O2 Device: room air (08/13 710) Acute PARKING LOT MANAGER Goals Plan of Care by Tanja Cason PARKING LOT MANAGER at 08/13/2024 11:10 AM Version 1 [...] 10 reps this session. Outcome: Ongoing Problem: PARKING LOT MANAGER - Cognition Goal: Orientation Log - [...] considerations: Cognition Patient Instruction/Education comments: Role of PARKING LOT MANAGER, presence and normalized frustration with cognitive-communicative impairments. Focused on memory this date and that patient does not recall education so perseverative questions are normal. Reviewed intermittent silent aspiration from MBS last weekand ongoing signs of dysphagia this session, will plan to coordinate timing for repeat instrumentalwith care team Plan for next session: 08/13 -[facility] PARKING LOT MANAGER Outcomes: FOIS 2 Speech Language Pathologist: RIKI Blancas Time In: 08 Time Out: 0850 Total Visit Time: 25 minutes Total Treatment Time (skilled, billable minutes): 25 minutes Non-billable assistance during session: na Assisted by during session: na PPE used during patient interaction: gloves Patient location/status at end of session: bed with head of bed elevated Patient alarms at end of session: none altered Needs in reach. PARKING LOT MANAGER Evaluation and Treatment Time Speech Therapy - Individual 65342: 12 Swallowing Dysfunction Treatment 57952: 13 Upon discontinuation of Acute Care Speech Therapy Services or patient discharge from the hospital this note represents the current Speech Therapy Discharge Summary * OWEN Benavides - 08/12/2024 3:21 PM EDT Placement Plan Expected Discharge Date: 08/14/2024 Referred Level of Care: IPR Barriers: Medical Readiness & Precertification Current Referrals and Status 1. [facility]-accept[facility] started precertification today. BULMARO Allen Pig Machine Operator * Jazzy Aguiar - 08/12/2024 10:46 AM [...] sinkside Mobility Assessment/Intervention: Supine to Sit Mobility Saline Level: Supine->Sit: moderate assist (50% patient effort) [...] positioning Transfer Assessment/Intervention: Sit to Stand Transfer Saline Level: Sit->Stand: maximum assist (25% patient effort) [...] maintaining upright posture Stand to Sit Transfer Saline Level: Stand->Sit: maximum assist (25% patient effort) Physical Assist: Stand->Sit: 2 person assist Assistive Device: Stand->Sit: gait belt, hand held assist Skilled Rationale: Verbal cues, Tactile cues, Hand placement, Positioning, Controlled descent for sitting Skilled Intervention/Details: Stand->Sit: Cues for positioning with recliner and using BUEs to help with appropriate positoining of hips in chair Bed-Chair Transfer Saline Level: Bed<->Chair: maximum assist (25% patient effort) Physical Assist: Bed<->Chair: 2 person assist Assistive Device: Bed<->Chair: gait belt Skilled Rationale: Verbal cues, Tactile cues, Hand placement, Positioning, Technique of activity Skilled Intervention/Details: Bed<->Chair: x1 from EOB to recliner on R. Pt needing increasedsupport for managing L side and sequencing steps for appropriate positioning with recliner Outcome Score(s): CURRENT [facility] Daily Activity Inpatient Short Form Putting on/Taking Off Lower Body Clothin - Total Assistance Bathin - A Lot of Assistance Toiletin - Total Assistance Putting on/Taking Off Upper Body Clothin - A Lot of Assistance Groomin - A Lot of Assistance Eatin - Total Assistance CURRENT [facility] Activity Raw Score: 9 CURRENT [facility] Activity Functional Limitation/Modifier: 79.59% Currently Impaired [...] speech and L hemiplegia. She presented to [facility] and was seen on Telestroke, NIHSS 12. CTH showed no acute hemorrhage or large territory stroke. CTA with mid R M1 occlusion. She was not given IV TNK due to unclear last dose of Eliquis ( unsure of last dose). She was transferred to [facility] for further management. Underwent mechanical thrombectomy with TICI 2b revascularization. Nutrition History/Assessment: Pt last assessed by NITHYA 08/05. RD recommended TF of Glucerna 1.5 at 55 mL/hr x 22 hours/day. Per MAR,TF has been held off and on in the past week for several different meds, procedures, etc. Per I/Os,in the past week pt received an average TF volume of 980 mL/day, meeting 81% of goal TF volume. Pt last assessed by PARKING LOT MANAGER 08/08 with recommendations for NPO. S/p [...] chips. Will also increase free water flushes. PARKING LOT MANAGER to see pt tomorrow. Nutrition Focused [...] kg (172 lb) 06/26/24 78.9 kg (174 lb)-[facility] 05/31/24 79 kg (174 lb 2.6 oz)-[facility] 11/28/23 80.6 kg (177 lb 9.6 oz)-[facility] 09/29/23 84 kg (185 lb)-[facility] meds reviewed: Scheduled: Reviewed, includes insulin, Synthroid, [...] Needs: Weight Used: 61 kg (IBW) EEN: 2019-5226 kcal/day (25-30 kcal/kg) EPN: 73-92 g/day (1.2-1.5 g/kg) EFN: 1830 mL/day (30 mL/kg) or per primary team Malnutrition Statement: Does the patient meet criteria for malnutrition: No *Based on [employer] Academy and ASPEN Indicators to Diagnose Malnutrition (AAIM) criteria (2012) Tianna Murray RD, LD, [facility] Pager #[phone] * Katei Richard, PT - 08/12/2024 10:22 AM EDT Acute [...] standing. Mobility Assessment/Intervention: Supine to Sit Mobility Saline Level: Supine->Sit: moderate assist (50% patient effort) Physical Assist: Supine->Sit: 2 person assist Bed Features/Set-up: Supine->Sit: Head of bed elevated Skilled Rationale: Verbal cues, Tactile cues, Hand placement, Technique of activity Skilled Intervention/Details: Supine->Sit: verbal/tactile cues for instruction on transfer technique and mod A x 2 for LE and trunk management. Transfer Assessment/Intervention: Sit to Stand Transfer Saline Level: Sit->Stand: maximum assist (25% patient effort) Physical Assist: Sit->Stand: 2 person assist Assistive Device: Sit->Stand: gait belt Skilled Rationale: Verbal cues, Tactile cues, Hand placement, Technique of activity Skilled Intervention/Details: Sit->Stand: x2 trials with verbal/tactile cues for instruction on transfer technique, hand placement, and blocking left knee. Bed-Chair Transfer Saline Level: Bed<->Chair: maximum assist (25% patient effort) Physical Assist: Bed<->Chair: 2 person assist Assistive Device: Bed<->Chair: gait belt Skilled Rationale: Verbal cues, Tactile cues, Hand placement, Technique of activity Skilled Intervention/Details: Bed<->Chair: x1 trial from EOB to chair to the right. Verbal/tactile cues for instruction on transfer technqiue, blocking left knee. Outcome Score(s): CURRENT [facility] Basic Mobility Inpatient Short Form Turning over in bed: 2 - A Lot of Assistance Moving from lying on back to sittin - Total Assistance Moving to and from bed to chair: 1 - Total Assistance Sitting/standing from chair: 1 - Total Assistance Walk in hospital room: 1 - Total Assistance Climbing 3-5 steps with a railin - Total Assistance CURRENT [facility] Mobility Raw Score: 7 CURRENT [facility] Mobility Functional Limitation: 92.36% Impaired in [...] Physical Therapy Discharge Summary. * Radha Gr APRN-SLASHER TENDER HELPER - 08/11/2024 7:15 AM EDT NEUROVASCULAR STROKE SERVICE Daily Progress Note IDENTIFYING INFORMATION Lindsay Acuna MR# [id number] 08/11/2024 HISTORY OF PRESENT ILLNESS Lindsay Acuna is a 78 y.o. female with PMH significant for CAD, HTN, HLD, T2DM, Afib (on Eliquis, although patient reports she has not been taking it) who presents with L hemiplegia, slurred speech. LKW 0915 on 08/02, later found down with slurred speech and L hemiplegia. She presented to [facility] and was seen on Telestroke, NIHSS [...] 2b revascularization. INTERVAL HISTORY 08/05: Transfer [place] [facility] [place] 08/06: [...] today 08/11 -Rate controlled on metoprolol Dysphagia: -PARKING LOT MANAGER following -NPO, DHT + TF -Failed [...] will likely be discharged to [facility] when medically ready Radha Gr, CARDIOTHORACIC PHYSIOTHERAPIST-SLASHER TENDER HELPER 08/11/2024 10:17 AM VITAL SIGNS Temp: [97.2 [...] for specific therapeutic recommendations, please see the custom framing specialist report of the speech pathologist. Examination performed [...] and neurological examinations as recorded by the MELT HOUSE CENTRIFUGAL OPERATOR repeated and confirmed. I have personally [...] tooth. Blood cx unremarkable. * Radha Gr, CARDIOTHORACIC PHYSIOTHERAPIST-SLASHER TENDER HELPER - 08/10/2024 7:14 AM EDT NEUROVASCULAR STROKE SERVICE Daily Progress Note IDENTIFYING INFORMATION Lindsay Acuna MR# [id number] 08/10/2024 HISTORY OF PRESENT ILLNESS Lindsay Acuna is a 78 y.o. female with PMH significant for CAD, HTN, HLD, T2DM, Afib (on Eliquis, although patient reports she has not been taking it) who presents with L hemiplegia, slurred speech. LKW 0915 on 08/02, later found down with slurred speech and L hemiplegia. She presented to [facility] and was seen on Telestroke, NIHSS [...] 2b revascularization. INTERVAL HISTORY 08/05: Transfer to [facility] [place] 08/06: [...] as above -Rate controlled on metoprolol Dysphagia: -PARKING LOT MANAGER following -NPO, DHT + TF -Failed [...] will likely be discharged to [facility] when medically ready Radha Gr, JASIEL-SLASHER TENDER HELPER 08/10/2024 7:14 AM VITAL SIGNS Temp: [97.4 [...] for specific therapeutic recommendations, please see the custom framing specialist report of the speech pathologist. Examination performed [...] skin and external bumper. - If used residential, PEG should be changed every 3-6 months [...] Hepatology, and Nutrition Clinical Fellow PGY-4 Pager: [phone] For follow up questions regarding this patient 7am to 5pm, contact the IBD consults fellow or DAHLIA on [employer]. [facility]--> Internal Medicine--> Gastroenterology, Hepatology, & Nutrition--> IBD Consult Service Fel Day OR IBD Consult Service DAHLIA Day For urgent/stat calls or new consults 5pm to 7am or all day on the weekend, please page the on-callGI fellow on [employer]. [facility]--> Internal Medicine--> Gastroenterology, Hepatology, & [...] CM for assistance as needed (8:00am-4:30pm) BASH: [phone] Maria: [phone] Johan: [phone] Ross: [phone] For Social Work assistance for the weekend, please contact SW for assistance as needed (8:00am - 4:30pm): BASH: [phone] Maria: [phone] Johan: [phone] Ross: [phone] * Radha Gr APRN-GARRETT - 08/09/2024 8:07 AM EDT NEUROVASCULAR STROKE SERVICE Daily Progress Note IDENTIFYING INFORMATION Lindsay Acuna MR# [id number] 08/09/2024 HISTORY OF PRESENT ILLNESS Lindsay Acuna is a 78 y.o. female with PMH significant for CAD, HTN, HLD, T2DM, Afib (on Eliquis, although patient reports she has not been taking it) who presents with L hemiplegia, slurred speech. LKW 0915 on 08/02, later found down with slurred speech and L hemiplegia. She presented to [facility] and was seen on Telestroke, NIHSS [...] 2b revascularization. INTERVAL HISTORY 08/05: Transfer to [facility] tomorrow 08/06: Failed MBS. Increased lopressor. [...] as above -Rate controlled on metoprolol Dysphagia: -PARKING LOT MANAGER following -NPO, DHT + TF -Failed [...] will likely be discharged to [facility] when medically ready Radha Gr APRN-SLASHER TENDER HELPER 08/09/2024 8:07 AM VITAL SIGNS Temp: [97.3 [...] for specific therapeutic recommendations, please see the custom framing specialist report of the speech pathologist. Examination performed [...] 08/12/2024 10:46 AM EDT * Shelton Steel, PARKING LOT MANAGER - 08/08/2024 1:10 PM EDT Acute Care [...] on the below outcome measures/assessment score(s) and PARKING LOT MANAGER clinicaljudgment, discharge destination recommendation is: Inpatient Rehab Facility Acute PARKING LOT MANAGER Outcomes Tracking Communicate basic wants and [...] pressions and introduction to effortful swallow exercise. PARKING LOT MANAGER provided education regarding recommendation of NPO [...] constraints (transport arrived for pt's CT scan). PARKING LOT MANAGER will follow as able. Subjective information: Patient upright in chair, at bedside. Agreeable to PARKING LOT MANAGER session. Pain: General Pain Documentation (Adult, [...] room air Flow (L/min): [3] 3 Acute PARKING LOT MANAGER Goals Plan of Care by RIKI [...] phsyiology, risks of aspiration pneumonia). Educated regarding PARKING LOT MANAGER role in swallow rehab and future POC Plan for next session: 08/06: cog tx and dysphagia exercises PARKING LOT MANAGER Outcomes: FOIS: 1 Speech Language Pathologist: RIKI Penaloza Time In: 1310 Time Out: 1330 Total Visit Time: 20 minutes Total Treatment Time (skilled, billable minutes): 20 minutes Non-billable assistance during session: NA Assisted by during session: NA PPE used during patient interaction: gloves Patient location/status at end of session: chair Patient alarms at end of session: none altered Needs in reach. PARKING LOT MANAGER Evaluation and Treatment Time Swallowing Dysfunction Treatment 30588: 20 Upon discontinuation of Acute Care Speech [...] feedback Mobility Assessment/Intervention: Supine to Sit Mobility Saline Level: Supine->Sit: moderate assist (50% patient effort) Physical Assist: Supine->Sit: 2 person assist Bed Features/Set-up: Supine->Sit: Use of bed rail, Head of bed elevated Skilled Rationale: Sequencing, Verbal cues, Hand placement, Positioning Skilled Intervention/Details: Supine->Sit: increased time/cues Transfer Assessment/Intervention: Sit to Stand Transfer Saline Level: Sit->Stand: moderate assist (50% patient effort) Physical Assist: Sit->Stand: 2 person assist Assistive Device: Sit->Stand: gait belt, hand held assist Skilled Rationale: Positioning, Sequencing, Hand placement, Verbal cues Skilled Intervention/Details: Sit->Stand: Pt educated in sit to stand transfers x 2 attempts, one from EOB and one from chair Bed-Chair Transfer Saline Level: Bed<->Chair: maximum assist (25% patient effort) [...] Mobility Assessment/Intervention: Stairs Assessment/Intervention: Outcome Score(s): CURRENT [facility] Basic Mobility Inpatient Short Form Turning [...] with a railin - Total Assistance CURRENT [facility] Mobility Raw Score: 8 CURRENT [facility] Mobility Functional Limitation: 86.62% Impaired in [...] the current Physical Therapy Discharge Summary. * Richadale Talamantesluis - 08/08/2024 10:07 AM EDT Acute Occupational [...] positioning Mobility Assessment/Intervention: Supine to Sit Mobility Saline Level: Supine->Sit: moderate assist (50% patient effort) [...] positioning Transfer Assessment/Intervention: Sit to Stand Transfer Saline Level: Sit->Stand: moderate assist (50% patient effort) Physical Assist: Sit->Stand: 2 person assist Assistive Device: Sit->Stand: gait belt, hand held assist Skilled Rationale: Verbal cues, Tactile cues, Hand placement, Positioning, Technique of activity Skilled Intervention/Details: Sit->Stand: x1 from EOB, x1 from recliner. Cues for technique and assuming an upright posture once standing Stand to Sit Transfer Saline Level: Stand->Sit: moderate assist (50% patient effort) Physical Assist: Stand->Sit: 2 person assist Assistive Device: Stand->Sit: gait belt, hand held assist Skilled Rationale: Verbal cues, Tactile cues, Hand placement, Positioning, Controlled descent for sitting Skilled Intervention/Details: Stand->Sit: Cues for positioning with recliner and using arms to help with controlled descent into chair Bed-Chair Transfer Saline Level: Bed<->Chair: maximum assist (25% patient effort) [...] appropriately position with chair. Outcome Score(s): CURRENT [facility] Daily Activity Inpatient Short Form Putting on/Taking Off Lower Body Clothin - Total Assistance Bathin - A Lot of Assistance Toiletin - Total Assistance Putting on/Taking Off Upper Body Clothin - A Lot of Assistance Groomin - A Lot of Assistance Eatin - Total Assistance CURRENT [facility] Activity Raw Score: 9 CURRENT [facility] Activity Functional Limitation/Modifier: 79.59% Currently Impaired [...] Progress Note IDENTIFYING INFORMATION Lindsay Acuna MR# [id number] 08/08/2024 HISTORY OF PRESENT ILLNESS Lindsay Acuna is a 78 y.o. female with PMH significant for CAD, HTN, HLD, T2DM, Afib (on Eliquis, although patient reports she has not been taking it) who presents with L hemiplegia, slurred speech. LKW 0915 on 08/02, later found down with slurred speech and L hemiplegia. She presented to [facility] and was seen on Telestroke, NIHSS [...] 2b revascularization. INTERVAL HISTORY 08/05: Transfer to [place] MBS tomorrow 08/06: Failed MBS. Increased lopressor. [...] as above -Rate controlled on metoprolol Dysphagia: -PARKING LOT MANAGER following -NPO, DHT + TF -Failed [...] will likely be discharged to [facility] when medically ready Bella Cardenas, CARDIOTHORACIC PHYSIOTHERAPIST-SLASHER TENDER HELPER 08/08/2024 2:53 PM VITAL SIGNS Temp: [97.4 [...] for specific therapeutic recommendations, please see the custom framing specialist report of the speech pathologist. Examination performed [...] bed availability Current Referrals and Status 1. [facility]- Reserved [facility] notified student confirming after call with Patient's daughter that [facility] is facility of choice. Facility reserved. AVS/DAVE [...] and patient's spouse are agreeable to [facility] as facility of choice, and Gisela is agreeable to [facility] as well. Updated SW student. Simin Resendez, RN, BSN Clinical Welder Pipe Making [facility] * Chela Hannon - 08/07/2024 2:08 PM EDT Placement Plan CUTTER WET MACHINE met with Patient and spouse at bedside to discuss facility choice. Spouse mentioned that [facility] was first choice, though CUTTER WET MACHINE provided update that [place] could not accept after reviewing. CUTTER WET MACHINE reviewed other IPR options with Spouse, who reports that [facility] would be facility of choice. Spouse discussed with daughter Gisela via phone, who is in agreement but requestsa return call. CUTTER WET MACHINE notified CCM. Chela Snyder, Social Work Student Available by Secure Chat Cosigned by OWEN Keller at 08/07/2024 2:11 PM EDT * Bella Cardenas APRN-GARRETT - 08/07/2024 6:54 AM EDT NEUROVASCULAR STROKE SERVICE Daily Progress Note IDENTIFYING INFORMATION Lindsay Acuna MR# [id number] 08/07/2024 HISTORY OF PRESENT ILLNESS Lindsay Acuna is a 78 y.o. female with PMH significant for CAD, HTN, HLD, T2DM, Afib (on Eliquis, although patient reports she has not been taking it) who presents with L hemiplegia, slurred speech. LKW 0915 on 08/02, later found down with slurred speech and L hemiplegia. She presented to [facility] and was seen on Telestroke, NIHSS [...] 2b revascularization. INTERVAL HISTORY 08/05: Transfer [place] MBS tomorrow 08/06: Failed MBS. Increased lopressor. [...] as above -Rate controlled on metoprolol Dysphagia: -PARKING LOT MANAGER following -NPO, DHT + TF -Failed [...] will likely be discharged to [facility] when medically ready Bella Cardenas, CARDIOTHORACIC PHYSIOTHERAPIST-SLASHER TENDER HELPER 08/07/2024 3:06 PM VITAL SIGNS Temp: [97.5 [...] for specific therapeutic recommendations, please see the custom framing specialist report of the speech pathologist. Examination performed [...] Referrals and Status 1. [facility]: Available 2. [facility]: Available 3. [facility]: Available (pending PEG or diet and their MD requested aspirin started before discharge) 4. [facility]: Available 5. [facility]: Unavailable, out of network 6. [facility]: Unavailable, Incorrect Level of Care 7. [facility]: sent Met with patient and patient's spouse, Ike, at bedside to provide choice list. Ike called patient's daughter, Gisela Acuna, to discuss as well. Gisela requested information on private pay at [facility], messaged [facility] liaison and then provided information to Gisela. Gisela requested CM sendreferral to [facility]. Plan for family to review choice list FREDRICK camargo/SW team will update patient and family regarding [facility] response tomorrow morning. This CM's contact information provided to Ike Acuna and Gisela Acuna for any further questions. Simin Resendez RN, BSN Clinical Welder Pipe Making [facility] * Florinda Velasquez, PT - 08/06/2024 [...] minutes Mobility Assessment/Intervention: Supine to Sit Mobility Saline Level: Supine->Sit: moderate assist (50% patient effort) Bed Features/Set-up: Supine->Sit: Head of bed elevated, Use of bed rail Skilled Rationale: Positioning, Sequencing Skilled Intervention/Details: Supine->Sit: step by step cues for sequencingg Transfer Assessment/Intervention: Sit to Stand Transfer Saline Level: Sit->Stand: moderate assist (50% patient effort) [...] left UE during transitional movements Bed-Chair Transfer Saline Level: Bed<->Chair: moderate assist (50% patient effort) Physical Assist: Bed<->Chair: 2 person assist Assistive Device: Bed<->Chair: gait belt, hand held assist Skilled Rationale: Positioning, Hand placement, Verbal cues, Sequencing Skilled Intervention/Details: Bed<->Chair: Pt educated in bed to BSC commode transfer x 2-3 steps with cues for LE sequencing, left LE weakness requiring intermittent blocking Gait/Functional Mobility Assessment/Intervention: Gait Assessment Saline Level: Gait: (mod/max) Physical Assist: Gait: 2 [...] prevent buckling. Stairs Assessment/Intervention: Outcome Score(s): CURRENT AM-PAC Basic [...] with a railin - Total Assistance CURRENT [facility] Mobility Raw Score: 9 CURRENT [facility] Mobility Functional Limitation: 81.38% Impaired in [...] Physical Therapy Discharge Summary. * Nimesh Balderrama [facility] - 08/06/2024 1:42 PM EDT Department of Pharmacy Admission Medication Reconciliation Note Patient: Lindsay Acuna Room/Bed: 1043/A I have reviewed the patient's home medication list with the following sources Dispense Report. The home medication list status is: complete. All changes to the home medication list have been updated in [facility]. Updated COMPO CONVEYOR OPERATOR Med List: Prior to Admission Medications Prescriptions [...] with any further questions. Name: Nimesh Balderrama [facility] Phone #: [phone] Date/Time: 08/06/2024 1:42 PM Time Spent: 10 [...] control, Facilitate positioning Grooming Intervention/Details: Seated at [facility], pt completed brushing hair and setting up [...] noted Mobility Assessment/Intervention: Supine to Sit Mobility Saline Level: Supine->Sit: moderate assist (50% patient effort) [...] completion. Transfer Assessment/Intervention: Sit to Stand Transfer Saline Level: Sit->Stand: (x 1 trial from EOB [...] and kyphotic posture. Stand to Sit Transfer Saline Level: Stand->Sit: moderate assist (50% patient effort) Assistive Device: Stand->Sit: gait belt (Arm and arm assist.) Skilled Rationale: Cues for increased safety, Initiation and execution of task, Technique of activity, Controlled descent for sitting, Ischial assist, Arm in arm, Tactile cues, Verbal cues, Hand placement, Sequencing, Positioning Bed-Chair Transfer Saline Level: Bed<->Chair: moderate assist (50% patient effort) [...] with left LE). Functional Mobility: Functional Mobility Saline Level: Functional Mobility/Gait: (Moderate-max assistance) Physical Assist: [...] overall decreased insight/awareness intodeficits. Outcome Score(s): CURRENT [facility] Daily Activity Inpatient Short Form Putting on/Taking Off Lower Body Clothin - Total Assistance Bathin - A Lot of Assistance Toiletin - Total Assistance Putting on/Taking Off Upper Body Clothin - A Lot of Assistance Groomin - A Lot of Assistance Eatin - Total Assistance ([place].) CURRENT [facility] Activity Raw Score: 9 CURRENT [facility] Activity Functional Limitation/Modifier: 79.59% Currently Impaired [...] Occupational Therapy Discharge Summary. * Taran Traore, CARDIOTHORACIC PHYSIOTHERAPIST-SLASHER TENDER HELPER - 08/06/2024 7:49 AM EDT NEUROVASCULAR STROKE SERVICE Daily Progress Note IDENTIFYING INFORMATION Lindsay Acuna MR# [id number] 08/06/2024 HISTORY OF PRESENT ILLNESS Lindsay Acuna is a 78 y.o. female with PMH significant for CAD, HTN, HLD, T2DM, Afib (on Eliquis, although patient reports she has not been taking it) who presents with L hemiplegia, slurred speech. LKW 0915 on 08/02, later found down with slurred speech and L hemiplegia. She presented to [facility] and was seen on Telestroke, NIHSS [...] 2b revascularization. INTERVAL HISTORY 08/05: [place] MBS tomorrow 08/06: Failed MBS. Increased lopressor. [...] as above -Rate controlled on metoprolol Dysphagia: -PARKING LOT MANAGER following -NPO, DHT + TF -Failed [...] will likely be discharged to [facility] when medically ready Taran Traore APRN-SLASHER TENDER HELPER 08/06/2024 1:43 PM VITAL SIGNS Temp: [96.5 [...] for specific therapeutic recommendations, please see the custom framing specialist report of the speech pathologist. Examination performed [...] Progress Note IDENTIFYING INFORMATION Lindsay Acuna MR# [id number] 08/05/2024 HISTORY OF PRESENT ILLNESS Lindsay Acuna is a 78 y.o. female with PMH significant for CAD, HTN, HLD, T2DM, Afib (on Eliquis, although patient reports she has not been taking it) who presents with L hemiplegia, slurred speech. LKW 0915 on 08/02, later found down with slurred speech and L hemiplegia. She presented to [facility] and was seen on Telestroke, NIHSS [...] 2b revascularization. INTERVAL HISTORY 08/05: Transfer to [facility] tomorrow PHYSICAL EXAM Gen: awake, [...] as above -Rate controlled on metoprolol Dysphagia: -PARKING LOT MANAGER following -NPO, DHT + TF -MBS tomorrow HLD, POA: -Atorvastatin 40 mg daily CAD, POA: -Hold ASA for 7 days due to ICH T2DM, POA: -SSI regular + accuchecks CKD Stage 3A, POA: Baseline Cr 1.3 -Avoid nephrotoxins, monitor Hypothyroidism, POA: -Continue home levothyroxine 75 mcg daily Disposition: Lindsay Acuna will likely be discharged to [facility] when medically ready Taran Traore APRN-SLASHER TENDER HELPER 08/05/2024 2:19 PM VITAL SIGNS Temp: [97.8 [...] on the below outcome measures/assessment score(s), and PARKING LOT MANAGER clinical judgment, discharge destination recommendation is: [...] Impaired cognitive skills limiting saf ety/insight Acute PARKING LOT MANAGER Outcomes Tracking Communicate basic wants and [...] oropharyngeal swallow function to most appropriately guide PARKING LOT MANAGER plan of care. Of note, patient [...] Currentdeficits impact her safety and independence. Ongoing PARKING LOT MANAGER services are warranted. Subjective information: Awake, [...] O2 Device: room air (08/05 0830) Acute PARKING LOT MANAGER Goals Plan of Care by Queta Gardner PARKING LOT MANAGER at 08/05/2024 11:49 AM Version 1 [...] oropharyngeal swallow function to most appropriately guide PARKING LOT MANAGER plan of care Outcome: Ongoing Problem: PARKING LOT MANAGER - Cognition Goal: Orientation Log - [...] better assess deficits and most appropriately guide PARKING LOT MANAGER plan of care Outcome: Met Tx: [...] Plan for next session: 08/05: Good candidate; FERNANDO PARKING LOT MANAGER Outcomes: PARKING LOT MANAGER Outcomes / Standardized Measures Score The [...] wrist restraints, RN aware Needs in reach. PARKING LOT MANAGER Evaluation and Treatment Time Speech Therapy - Individual 85219: 8 Swallowing Dysfunction Treatment 98402: 9 Upon discontinuation of Acute Care Speech Therapy Services or patient discharge from the hospital this note represents the current Speech Therapy Discharge Summary * Chela Hannon - 08/05/2024 10:37 AM EDT Placement Plan Expected Discharge Date: TBD Referred Level of Care: IPR Barriers: medical stability, bed availability Current Referrals and Status 1. [facility]- sent; denied (Patient is OON) 2. [facility]- sent 3. [facility]- sent 4. [facility]- sent 5. [facility]- sent 6. [facility] CUTTER WET MACHINE met with Patient and Spouse at bedside to discuss discharge planning. Patient and spouse were agreeable to SW visit. CUTTER WET MACHINE discussed therapy recommendations with Spouse for Patient to go to IPR at discharge. Spouse is agreeable to a referral being sent to [facility]. Referral sent. Spouse requested to speak to SW about assessing Patient for dementia. CUTTER WET MACHINE and bedside RN encouragedSpouse to discuss with Patient's outpatient provider. Chela Snyder, Social Work Student Available by Secure Chat Cosigned by OWEN Keller at 08/05/2024 11:22 AM EDT * Savana Leung, RD - 08/05/2024 10:10 AM EDT NUTRITION ASSESSMENT Nutrition Recommendations and Plan of Care: 1. Diet: NPO. Advancement per team/PARKING LOT MANAGER recommendation 2. Ordered TF: Glucerna 1.5 [...] time. Per team, pt failed bedside swallow. PARKING LOT MANAGER consulted for swallow eval. Past History [...] kg (172 lb) 06/26/24 78.9 kg (174 lb)-[facility] 05/31/24 79 kg (174 lb 2.6 oz)-[facility] 11/28/23 80.6 kg (177 lb 9.6 oz)-[facility] 09/29/23 84 kg (185 lb)-[facility] Pt without significant weight change COMPO CONVEYOR OPERATOR. Tmax: 97.8*F BP: (!) 173/94 Pulse (Heart [...] proximal second portion of the duodenum. BM: COMPO CONVEYOR OPERATOR Urine: 725mL Skin: Raghu Score: 13 Active Wounds: Wound Sheath Site 03/21/25 1500 Right Radial (3) Wound Abrasion 08/02/24 2109 Left;Upper Face (3) Edema- None Estimated Nutrition Needs: Based on IBW (61.4kg) Estimated Kcals Needs: 0217-2550 kcals (25-30kcals/kg) Estimated Pro Needs: 74-92g Pro [...] (2012) ELVIRA Ho, RD, LD, CNSC Pager: [phone] * Rashad Rg MD - 08/05/2024 9:42 AM EDT 78F admitted to the [facility] with Rt M1 occlusion s/p TICI2b revascularization. [...] critical care time 31min. * Shanna Russ, CARDIOTHORACIC PHYSIOTHERAPIST-SLASHER TENDER HELPER - 08/05/2024 7:20 AM EDT NEUROCRITICAL CARE [...] Visual richards intact to confrontation. PERRL. 3mm manager financial services III, IV and : EOMI. No nystagmus. [...] aggressive pulm edema, OOB as toleratd - [id number], encourage pulmonary toileting Cards: Essential HTN HLD [...] TUBE FEEDING with meds (per DHT) - [place] Swallow Screening Result: failed=NPO Bowel regimen: - Last Bowel Movement: (prior to admission) - Senna 17.2 mg Q12H, miralax BID, suppository PRN Stress ulcer prophylaxis: - none Dysphagia - DHT placed - PARKING LOT MANAGER following; NPO continue following, on TF [...] Family Engagement Primary Emergency Contact: Ike Acuna, Eron Last updated: 08/05 at bedside updated. [x] [...] the assigned neurocritical care provider (resident, fellow, MELT HOUSE CENTRIFUGAL OPERATOR, orPA) or page/call the corresponding number below NCC1 (Beds 8111-4323): [place] # [phone], pager #[phone] NCC2 (Beds 6546-2324, [address], and overflow): [place] #: [phone], pager #[phone] * Florinda Velasquez, PT - 08/04/2024 1:36 [...] noted Mobility Assessment: Supine to Sit Mobility Saline Level: Supine->Sit: moderate assist (50% patient effort) [...] EOB Transfer Assessment: Sit to Stand Transfer Saline Level: Sit->Stand: moderate assist (50% patient effort) Physical Assist: Sit->Stand: 2 person assist Assistive Device: Sit->Stand: gait belt, hand held assist Skilled Rationale: Positioning, Sequencing, Hand placement, Verbal cues Skilled Intervention/Details: Sit->Stand: x 1 from EOB Bed-Chair Transfer Saline Level: Bed<->Chair: moderate assist (50% patient effort) Physical Assist: Bed<->Chair: 2 person assist Assistive Device: Bed<->Chair: gait belt, hand held assist Skilled Rationale: Positioning, Sequencing, Hand placement, Verbal cues Skilled Intervention/Details: Bed<->Chair: x 2-3 steps from bed to chair Gait/Functional Mobility: Stairs: Outcome Score(s): CURRENT [facility] Basic Mobility Inpatient Short Form Turning [...] with a railin - Total Assistance CURRENT [facility] Mobility Raw Score: 10 CURRENT [facility] Mobility Functional Limitation: 76.75% Impaired in [...] Complexity: Moderate Time In: 918 Time Out: 0937 Total Visit Time: 18 minutes Total Treatment [...] current Physical Therapy Discharge Summary. * Dona Sharp, OT - 08/04/2024 12:18 PM EDT Acute [...] Edema: Mobility Assessment: Supine to Sit Mobility Saline Level: Supine->Sit: moderate assist (50% patient effort) Physical Assist: Supine->Sit: 2 person assist Bed Features/Set-up: Supine->Sit: Head of bed elevated Skilled Rationale: Positioning, Hand placement, Verbal cues, Technique of activity Transfer Assessment: Sit to Stand Transfer Saline Level: Sit->Stand: moderate assist (50% patient effort) Physical Assist: Sit->Stand: 2 person assist Assistive Device: Sit->Stand: gait belt, hand held assist Skilled Rationale: Positioning, Hand placement, Verbal cues, Technique of activity Stand to Sit Transfer Saline Level: Stand->Sit: moderate assist (50% patient effort) Physical Assist: Stand->Sit: 2 person assist Assistive Device: Stand->Sit: hand held assist Skilled Rationale: Positioning, Hand placement, Verbal cues, Arm in arm, Controlled descent for sitting Bed-Chair Transfer Saline Level: Bed<->Chair: moderate assist (50% patient effort) Physical Assist: Bed<->Chair: 2 person assist Assistive Device: Bed<->Chair: gait belt, hand held assist Skilled Rationale: Arm in arm, Patellar block, Technique of activity Skilled Intervention/Details: Bed<->Chair: LLE weakness/blocking of patella with transfer, pivot to right Functional Mobility: Outcome Score(s): CURRENT -[facility] Daily Activity Inpatient Short Form Putting on/Taking Off Lower Body Clothin - A Lot of Assistance Bathin - A Lot of Assistance Toiletin - Total Assistance Putting on/Taking Off Upper Body Clothin - A Lot of Assistance Groomin - A Little Assistance Eatin - Total Assistance CURRENT AM-[facility] Activity Raw Score: 11 CURRENT AM-[facility] Activity Functional Limitation/Modifier: 70.42% Currently Impaired in Daily Activity- CL Interventions: Daughter education on promotion of attention to left as well as HEP/foam block use on LUE. Brief education, will benefit from continued ed. Assessment & Plan: Patient was admitted for CA - 08/02/24: going to thrombectomy, R M1 [...] assessment and plan as documented by the MELT HOUSE CENTRIFUGAL OPERATOR with my changes/additions added. Patient is [...] ICH x 7 days - Statin - PT/OT/PARKING LOT MANAGER evaluation Pulmonary: No acute issues, appears [...] and other supportive care as per the MELT HOUSE CENTRIFUGAL OPERATOR note from the same day This [...] care services to the patient today [facility], teaching and other care providers. Management of the above was performed. My time managing this critically ill patient included review of interval history, laboratories, radiology and cons ultation reports; performing a physical examination; discussing the patient with the multi-disciplinary team and managing life sustaining therapies to prevent imminent clinical deterioration. Richard Mejia MD Neurocritical Care Attending * Balbir Mccoy APRN-SLASHER TENDER HELPER - 08/04/2024 7:44 AM EDT NEUROCRITICAL CARE [...] Visual richards intact to confrontation. PERRL. 3mm manager financial services III, IV and : EOMI. No nystagmus. [...] SpO2 >92%; wean FiO2 as tolerated - [id number], encourage pulmonary toileting Cards: Essential HTN HLD [...] displayed. 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 Recent Labs 03/21/25 1843 ALBUMIN 3.5 BILIDIRECT 0.1 BILITOTAL 0.6 ALKPHOS 117 ALT 10 AST 17 TP 6.3* - DIET NPO AND TUBE FEEDING with meds (per DHT) - [place] Swallow Screening Result: failed=NPO Bowel regimen: - Last Bowel Movement: (prior to admission) - Senna 17.2 mg Q12H, miralax at bedtime Stress ulcer prophylaxis: - none Dysphagia - DHT placed - PARKING LOT MANAGER following - Tube feed: Vital AF [...] Heme/Onc: No Current Issues Recent Labs 08/02/24 18408/03/24 0002 08/04/24 0003 WBC 8.16 8.43 11.41* [...] not indicated DVT: subcutaneous heparin [x] Lines [place]: n/a Gallegos: inserted 08/02, (indication: strict I&O with concern for KELI) Rectal tube: n/a Enteral access: inserted 08/03, [ ] gastric; [x ] post-pyloric CENTRAL LINES: Central Line Indications: No line currently in place Can line/s be removed today? No line in place at this time Dressing/s Clean/Dry/Intact?: No line currently in place Discussed with NCCU Attending, Dr. Jackie Mccoy, CARDIOTHORACIC PHYSIOTHERAPIST-SLASHER TENDER HELPER 08/04/24 7:44 AM Check the treatment team to find the assigned neurocritical care provider (resident, fellow, MELT HOUSE CENTRIFUGAL OPERATOR, orPA) or page/call the corresponding number below NCC1 (Beds [phone]): Pernell # [phone], pager #[phone] NCC2 (Beds [phone], 12 Nando, and overflow): [employer] #: [phone], pager #[phone] * Rafael Garcia MD - 08/03/2024 2:16 PM EDT NEUROVASCULAR Consult Daily Progress Note IDENTIFYING INFORMATION Lindsay Acuna MR# [id number] 08/03/2024 HISTORY OF PRESENT ILLNESS Lindsay Acuna is a 78 y.o. female with PMH significant for CAD, HTN, HLD, T2DM, Afib (on Eliquis, although patient reports she has not been taking it) who presents with L hemiplegia, slurred speech. She was last seen normal by her at 0915, later found down with slurred speech and L hemiplegia. She presented to [facility] and was seen on Telestroke, NIHSS [...] speech and L hemiplegia. She presented to [facility] and was seen on Telestroke, NIHSS [...] workup. Delbert Kasper MD * Nohelia Oconnell, PARKING LOT MANAGER - 08/03/2024 12:09 PM EDT Acute Care PARKING LOT MANAGER Speech/Language/Cognitive Evaluation Best mode of Communication: spoken language (regular speech) Discharge Recommendations: Based on the below outcome measures/assessment score(s) and PARKING LOT MANAGER clinicaljudgment, discharge destination recommendation is: (Skilled speech therapy services at next level of care) Barriers to discharge home: Cognitive impairments that impact safety and independence Supporting factors for discharge setting: Impaired swallow function limiting nutritional status andsafety with oral intake Acute PARKING LOT MANAGER Outcomes Tracking Communicate basic wants and [...] speech and L hemiplegia. She presented to [facility] and was seen on Telestroke,NIHSS 12. [...] 0 Asthenia (A): 0 Strain (S): 0 PARKING LOT MANAGER Outcomes / Standardized Measures Score The [...] unable to respond. Total Score: 12 Acute PARKING LOT MANAGER Goals Plan of Care by RIKI Hayes at 08/03/2024 11:25 AM Version 1 of 1 Problem: Dysphagia Goal: Ongoing Assessment - Patient will participate in ongoing assessment by accepting various PO consistency trials with appropriate participation/oral acceptance and no significant respiratory complications to determine readiness for diet advancement Outcome: Ongoing Problem: PARKING LOT MANAGER - Cognition Goal: Orientation Log - [...] better assess deficits and most appropriately guide PARKING LOT MANAGER plan of care Outcome: Ongoing Speech [...] of session: bed alarm Needs in reach. PARKING LOT MANAGER Evaluation and Treatment Time Speech Eval - Sound Production W/Lang Comp and Exp 95507: 11 Swallowing Eval 18995: 10 Upon discontinuation of Acute Care Speech Therapy Services or patient discharge from the hospital this note represents the current Speech Therapy Discharge Summary * IRKI Hayes - 08/03/2024 11:30 AM EDT Acute Care Speech-Language Pathology Clinical Swallow Evaluation Diet recommendation: Recommended Method of Nutrition: Short-term alternate nutrition Recommended Medication Administration (as appropriate per MD): Non-Oral Assistance: nurse/aide Discharge Recommendations: Based on the below outcome measures/assessment score(s) and PARKING LOT MANAGER clinicaljudgment, discharge destination recommendation is: Deferred to PT/OT recomendations related to mobility Current therapy frequency recommendation in acute care: Swallow Therapy Frequency: 5 times a week Acute PARKING LOT MANAGER Outcomes Tracking Communicate basic wants and [...] speech and L hemiplegia. She presented to [facility] and was seen on Telestroke,NIHSS 12. 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 Prior PARKING LOT MANAGER history: No prior speech history per [...] and Liquids Trialed Modality Amount Ice Teaspoon, PARKING LOT MANAGER-fed 3x Thin Teaspoon 3x Oral Phase [...] Patient presents with presumed pharyngeal phase impairments. [place] Swallow Screen: (administered by: RN) [place] Swallow Screening Screening Exclusion Criteria: none, continue with [place] Swallow Screening Cognitive Screen: Orientation: able to [...] Water Swallow Challenge : coughing/throat clearing-overt signs/symptoms [place] Swallow Screening Result: failed=NPO Voice and Swallow [...] Ok for ice chips with RN supervision. PARKING LOT MANAGER will continue to follow for ongoing dysphagia management. Patient Education/Instruction Learners: Patient Education provided: Dysphagia recommendation risk: benefit analysis, Role of this discipline Teaching method: Verbal Education/Instruction Learner response: Needs review Learning preferences: Auditory Learning considerations: Cognition Plan for next session: 08/03: Good Prognosis, ongoing dysphagia management to determine readiness for diet advancement vs instrumental. Acute PARKING LOT MANAGER Goals Plan of Care by RIKI Hayes at 08/03/2024 11:25 AM Version 1 of 1 Problem: Dysphagia Goal: Ongoing Assessment - Patient will participate in ongoing assessment by accepting various PO consistency trials with appropriate participation/oral acceptance and no significant respiratory complications to determine readiness for diet advancement Outcome: Ongoing Problem: PARKING LOT MANAGER - Cognition Goal: Orientation Log - [...] better assess deficits and most appropriately guide PARKING LOT MANAGER plan of care Outcome: Ongoing Speech Language Pathologist: Nohelia Oconnell, RIKI, BCS-S Board Certified Specialist in Swallowing and Swallowing Disorders Available via Cuipo Chat Time In: 1130 Time Out: 1151 Total Visit Time: 21 minutes Total Treatment Time (skilled, billable minutes): 21 minutes Non-billable assistance during session: none Assisted by during session: Patient's PPE used during patient interaction: gloves Patient location/status at end of session: bed with head of bed elevated Patient alarms at end of session: bed alarm Needs in reach. PARKING LOT MANAGER Evaluation and Treatment Time Speech Eval - Sound Production W/Lang Comp and Exp 80138: 11 Swallowing Eval 24480: 10 Upon discontinuation of Acute Care Speech Therapy Services or patient discharge from the hospital this note represents the current Speech Therapy Discharge Summary * Richard Mejia MD - 08/03/2024 10:30 AM EDT I have independently seen and examined the patient on 08/03/24. I agree with the history, examination, assessment and plan as documented by the MELT HOUSE CENTRIFUGAL OPERATOR with my changes/additions added. Patient is [...] the setting of ICH - Statin - PT/OT/PARKING LOT MANAGER evaluation Pulmonary: No acute issues, appears [...] and other supportive care as per the MELT HOUSE CENTRIFUGAL OPERATOR note from the same day This [...] care services to the patient today [facility], teaching and other care providers. Management of [...] with assistance from spouse Care Management Plan CUTTER WET MACHINE met with Patient and Spouse at bedside to complete Initial Assessment. They were agreeable to SW visit. Patient was lethargic though able to answer some short questions. Patient consented to Spouse assisting with assessment. Spouse/Patient report that Patient has never completed a HCPOA. They expressed interest, and CUTTER WET MACHINE will follow to complete document when Patient is more alert and oriented. Spouse reports himself and Patient live in a ranch-style home with strong supports from their community, including 2 neighbors that have assisted at this time. He noted that himself and Patient recently returned from a visit to [facility] for their 50 anniversary. Spouse reports that their 2 children will be visiting soon. CUTTER WET MACHINE explained SW role and offered resources. Spouse [...] Name and Contact information: Ike Acuna P: [phone] Adult Child(jj), List All Adult Children: Yes Name and Contact information: Donnell Armand P: [phone]; Nathen Acuna P: [phone] Would you like to add additional adult [...] for Advance Care Planning? : Patient Agreeable (CUTTER WET MACHINE to follow for HCPOA completion when Patient is more alert and oriented) Medication Management Does the patient have prescription insurance coverage? : Yes Is the patient on Anticoagulation? : Yes (Per chart review, Patient is on anticoagulation but has not been taking it (does not recall the last time she took a dose)) Provider or Clinic that manages Anticoagulation?: (unspecified at this time) [facility] [address] [place] [phone] [facility] [address] [facility] [address] Living Environment and Support System Is the patient from a facility or longterm?: No Living Environment: House ("1 bedroom ranch") Patient Caregiving Responsibilities: Self Patient-identified caregiver/support network: Family, Friends, Neighbors, Amish Who does the patient identify as a [...] themselves at home? : Unable to assess Boat Canvas Installer Does the patient or marketing representative express financial concerns? : No Chela Snyder, Social Work Student Available by Secure Chat Cosigned by OWEN Keller at 08/03/2024 11:20 AM EDT * Balbir Mccoy, CARDIOTHORACIC PHYSIOTHERAPIST-SLASHER TENDER HELPER - 08/03/2024 7:40 AM EDT NEUROCRITICAL CARE [...] Visual richards intact to confrontation. PERRL. 3mm manager financial services III, IV and : EOMI. No nystagmus. [...] SpO2 >92%; wean FiO2 as tolerated - [id number], encourage pulmonary toileting Cards: Essential HTN HLD [...] - Bowel regimen: - Last Bowel Movement: (COMPO CONVEYOR OPERATOR) - Senna, miralax Stress ulcer prophylaxis: - none Dysphagia - DHT placed - PARKING LOT MANAGER following - Tube feed: Vital AF [...] prophylaxis - rationale: post thrombectomy [x] Lines [place]: n/a Gallegos: inserted 08/02, (indication: strict I&O) [...] the assigned neurocritical care provider (resident, fellow, MELT HOUSE CENTRIFUGAL OPERATOR, orPA) or page/call the corresponding number below NCC1 (Beds 9082-2585): Pernell # [phone], pager #[phone] NCC2 (Beds 9438-0485, 12 Nando, and overflow): Tappen #: [phone], pager #[phone] * Nando Caceres MD - 08/03/2024 6:00 [...] 1) Na/K+/Phos/Mg/Ca: 138/4.3/3.5/2.1/-- (08/03 1) Bun/Creat/Cl/CO2/Glucose: 18/1.35/103/23/151 (03/22 0002) Lab Results Component Value Date INR 1.1 [...] nccu Neurosurgery signing off Please page NS2 ([email or web address]) with questions Complexity. Hypocalcemia - Continue to monitor and replete. Any conditions listed below are present on admission unless otherwise specified. . Cosigned by Prema Ramos MD at 08/03/2024 6:37 PM EDT * Andreas Ga, [facility] - 08/02/2024 10:57 PM EDT Department of [...] any questions, Name: Andreas Ga RPH Phone: [phone] Date/Time: 08/02/2024 10:57 PM * Richard Mejia MD - 08/02/2024 6:01 PM EDT I have independently seen and examined the patient on 08/02/24. I agree with the history, examination, assessment and plan as documented by the MELT HOUSE CENTRIFUGAL OPERATOR with my changes/additions added. Patient is [...] to determine stroke burden - Statin - PT/OT/PARKING LOT MANAGER evaluation Pulmonary: No acute issues, appears [...] stage 3a - Maintain euvolemia GI/Nutrition: - PARKING LOT MANAGER evaluation - Bowel regimen to prevent [...] and other supportive care as per the MELT HOUSE CENTRIFUGAL OPERATOR note from the same day This [...] MD Neurocritical Care Attending documented in this [facility]03-29-2025 Consult note* Niru Koch MD - 08/10/2024 [...] today. Consent obtained by at bedside. - PARKING LOT MANAGER eval: none - RD eval: none [...] dependence ASSESSMENT/RECOMMENDATIONS: - primary team feels that terminologist enteric nutrition is warranted in s/o CVA. Patient is appropriate for endoscopic PEG placement. Consent obtained from at bedside. - we will tentatively plan for EGD for PEG placement 08/09 as add on case. See pre procedure recommendations below. For PEG: - Ancef ordered (1 gm if patient is <80 kg; 2 gm if patient is >80 kg) as "convention planner to the procedure"). - Please make NPO [...] Hepatology, and Nutrition Clinical Fellow PGY-4 Pager: [phone] For urgent/stat calls 5pm to 7am or [...] and medical decisions as outlined. Need for terminologist non-oral enteric nutrition per primary team. We will facilitate this with planned PEG tube placement. Before placement, non-GI management of TF should be established to avoid delays. David Woods M.D. * Emelyn Suazo APRN-SLASHER TENDER HELPER - 08/05/2024 9:24 AM EDTAssociated Order(s): IP CONSULT TO GERIATRICS Geriatrics IP Consult Service - New Consult Note Assessment and Plan Debility with CVA with left side weakness PT / OT recs for IRF PARKING LOT MANAGER as planned for dysphagia DHT for [...] 3.5. 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 Prema Ramos M.D. Surgical Lead Department of Neurosurgery [facility] * Taran Traore, CARDIOTHORACIC PHYSIOTHERAPIST-SLASHER TENDER HELPER - 08/02/2024 2:44 PM EDT Neurovascular Evaluation [...] speech and L hemiplegia. She presented to [facility] and was seen on Telestroke, NIHSS [...] Scales Flowsheet Row Most Recent Value Modified [place] Scale Score Premorbid (MRSS) 0 filed on [...] solution Intravenous Continuous PRN Bebo Barboza APRN- SPINDLE PLUMBER New Bag at 08/02/24 1507 Scheduled Meds: [...] protrudes midline Motor: L hemiplegia Reflexes: Coordination: Kozbhp-ds-gkvo intact on the R, unable to test [...] ED. Continuous telemetry -PT, OT, Speech and delinquency prevention social worker consults Other problems: Complexity. Any conditions [...] speech and L hemiplegia. She presented to [facility] and was seen on Telestroke, NIHSS [...] Delbert Kasper MD [facility]* Tanja Hunter, RIKI - 08/06/2024 [...] the below outcome measures/assessment score(s), MBS, and PARKING LOT MANAGER clinical judgment, discharge destination recommendation is: IP Rehab Facility. Patient demonstrates good candidacy for discharge to: IRF. Additional supporting factors include: Impaired swallow functionlimiting nutritional status and safety with oral intake. Acute PARKING LOT MANAGER Outcomes Tracking Communicate basic wants and [...] speech and L hemiplegia. She presented to [facility] and was seen on Telestroke, NIHSS [...] Thin Barium: teaspoon x2, straw x2 Varibar Oral Barium: straw x1 Varibar Thin Honey Barium: [...] recommend NPO and nonoral meds. Ongoing skilled PARKING LOT MANAGER services indicated to address deficits and [...] Therapeutic Interventions Met: yes, treatment indicated Acute PARKING LOT MANAGER Goals Plan of Care by Tanja Hunter, PARKING LOT MANAGER at 08/06/2024 9:33 AM Version 1 of 1 Problem: Dysphagia Goal: MBS - Patient will participate in Modified Barium Swallow (MBS) Study to objectively assess oropharyngeal swallow function to most appropriately guide PARKING LOT MANAGER plan of care Outcome: Met Goal: [...] Treatment Time (skilled, billable minutes): 20 minutes PARKING LOT MANAGER Evaluation and Treatment Time MBS/Motion Fluoroscopic Swallowing Eval 64138: 20 Speech Language Pathologist: RIKI Gonzales Time [...] end of session: none altered (RN present) PARKING LOT MANAGER Evaluation and Treatment Time MBS/Motion Fluoroscopic Swallowing Eval 94354: 20 Upon discontinuation of Acute Care Speech Therapy Services or patient discharge from the hospital this note represents the current Speech Therapy Discharge Summary documented in this [facility]03-25-2025 Hospital Discharge instructions* Discharge Instructions* Jhoana Casarez APRN-SLASHER TENDER HELPER - 08/06/2024 8:38 AM EDT Please take [...] you at all times. Stroke Education: visit [email or web address] What are the most common symptoms of [...] all ordered medications [x] Avoid non-prescription or iacv-jsj-dcfuzjf medication not cleared by your physician [x] [...] may call the neurovascular doctors office at [phone], if you have questions Mon-Fri between 8:30 am and 4:30 pm. - For off hours or the weekend you may call the office or the hospital blow up operator at and ask for the stroke resident convention planner to be paged. - If you have any other questions or needs, please call Aniyah DOSS, RN, Stroke Nurse Navigator at [phone] Mon-Mon between 7:00am and 3:00pm. - Additional assistance may be found by reaching out to our Case Management Office at [phone]. *In the event of an Emergency: If you have a physical or psychiatric emergency call 911 or go to your local emergency department. You should also call your outpatient provider's emergency number. Other reference numbers: [facility] Intake Office at [phone]; [facility] at 150-126-6555; or Suicide Prevention Hotline at 540-008-6105. *Helpful phone numbers: Free Crisis Hotline: 4-470-860-TALK ( ) Suicide Hotline: 440.229.7164 Seniors Suicide Hotline: 710.718.1576 [facility] Youth: 926.291.7224 Mental Health of [place]: 203.340.4605 (free counseling) [facility] Access Hotline: 717-969-QFSA (783-211-6697) 24-hour crisis text hotline: Text the word "4hope" to 218-319 for crisis support. Texting this number is [...] qualify for Medicaid/public assistance: The [facility] Department of Job and Family Services can now process zayas (TANF), food (SNAP) and Medicaid Applications over the phone. Please call 7-451-126Enel OGK-5[place] (8968) and apply over the phone or apply online at www.benefits.[place].gov. Monday-Monday 8am-12pm noon. Medication Assistance Programs [employer] members can buy 100+ common prescriptions for FREE, $3 or $6. Annual membership is $36 for individuals and $72 for families (up to 6 people, including pets). Sign up online or enroll at your nearest pharmacy! -[employer], web site can provide a significant number of coupons for medications at a much lower raymundo. [place] Department of Aging The Department of Aging administers programs and services to meet the needs of older [place]. Services and resources offered per county may include transportation, housekeeping, meals and nutrition, personal care, case management, safety monitoring, home medical equipment, legal services, financial associate, health and wellness, education, caregiver support, respite care, etc. Call to be connected to the [facility] agency on aging serving your community or visit aging.[place].gov/find-services. Request a consultation with a community resource expert at ltssi.age.[place].gov/ [facility] Stroke Support The [facility] Stroke Support Group is for stroke survivors, friends, and family members. Meets on the Monday of each month from 6:30pm-7:30pm at [facility] ([address]; [place] [address]). Contact Chela Nolan, at [phone] or [email or web address]. If you are outside of the [facility], contact The [place] Stroke Association at www.stroke.org or 8-117-6-STROKE or for support groups in your area. You may also refer to the Your Care after a Stroke education booklet at go.[facility].edu/gdtw2947 for additional resources. * Medications* PATRIZIA Miner - 08/06/2024 8:38 AM EDT Know your medicines Make sure you know why you are taking each medicine. Make a master list of all your medicines. Write down the medicine names and doctors' names. Includedoses and side effects too. And write down why you take each medicine. Include all prescription kixwojv-ohi-sqsktlq medicines, vitamins, and supplements. Keep this list [...] plan your refills so that you can mixing picker tender all your medicines at the same time. [...] changed every 6 months. [facility] History and physical note* PATRIZIA Lam - [...] Visual richards intact to confrontation. PERRL. 3mm manager financial services III, IV and : EOMI. No nystagmus. [...] SpO2 >92%; wean FiO2 as tolerated - [id number], encourage pulmonary toileting Cards: Essential HTN HLD [...] the assigned neurocritical care provider (resident, fellow, MELT HOUSE CENTRIFUGAL OPERATOR, orPA) or page/call the corresponding number below NCC1 (Beds 7688-8740): Pernell # [phone], pager #[phone] NCC2 (Beds 8509-3656, 12 Nando, and overflow): Tappen #: [phone], pager #[phone] Cosigned by Richard Mejia MD at 08/02/2024 11:14 PM EDT [facility] Nurse Note* Rachell Ruffin RN - 08/02/2024 3:13 PM EDT 9 cc air instilled in right radial TR band @ 1520. Glasses placed in bag wit label. Sent to PACU with patient on cart. documented in this [facility] Discharge summary [facility] Medical Records Department [address] [place] [address] Emergency Department Summary 08/02/24 MR#: [id number] Acct: [id number] Name: LINDSAY ACUNA Rep #:[id number] : [...] the EMR. states they returned home from [facility] about 1.5-2 weeks ago, and they both had colds. He is better, but she is "on round 2." [facility] Medical History Paroxysmal atrial fibrillation with RVR [...] 71.4 H Lymph % (Auto) 17.9 L [place] % (Auto) 8.9 Eos % (Auto) 1.0 [...] on 08/02/2024 at 1250 hours. Reading Location: [facility] Head/Neck CTA 08/02/24 12:24 IMPRESSION: RIGHT CAROTID: Mild degree of calcific plaque at the origin of the right internal carotid artery. LEFT CAROTID: Mild degree of calcific plaque at the origin of the left internal carotid artery. VERTEBRALS: Dominant left vertebral artery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 chronic kidney disease 11/03/2020 11/05/2020 Diabetes mellitus with renal complications 05/0111/03/2020 PURE HYPERCHOLESTEROLEM 11/27/19 14 DIABETES MELLITUS TYPE II-UNCOMPL 11/26/2013 documented as of this encounter (statuses as of 12/16/2021) [facility] History of Past illness Narrative* Problem Noted Date Resolved Date Hypertensive kidney disease with stage 3 chronic kidney disease 11/03/2020 11/05/2020 Diabetes mellitus with renal complications 05/0111/03/2020 PURE HYPERCHOLESTEROLEM 11/27/19 14 DIABETES MELLITUS TYPE II-UNCOMPL 11/26/2013 documented as of this encounter (statuses as of 01/11/2022) [facility] History of Past illness Narrative* Problem Noted Date Resolved Date Hypertensive kidney disease with stage 3 chronic kidney disease 11/03/2020 11/05/2020 Diabetes mellitus with renal complications 05/0111/03/2020 PURE HYPERCHOLESTEROLEM 11/27/19 14 DIABETES MELLITUS TYPE II-UNCOMPL 11/26/2013 documented as of this encounter (statuses as of 01/11/2022) [facility] History of Past illness Narrative* Problem Noted Date Resolved Date Hypertensive kidney disease with stage 3 chronic kidney disease 11/03/2020 11/05/2020 Diabetes mellitus with renal complications 05/0111/03/2020 PURE HYPERCHOLESTEROLEM 11/27/19 14 DIABETES MELLITUS TYPE II-UNCOMPL 11/26/2013 documented as of this encounter (statuses as of 03/02/2022) [facility] History of Past illness Narrative* Problem Noted Date Resolved Date Hypertensive kidney disease with stage 3 chronic kidney disease 11/03/2020 11/05/2020 Diabetes mellitus with renal complications 05/0111/03/2020 PURE HYPERCHOLESTEROLEM 11/27/19 14 DIABETES MELLITUS TYPE II-UNCOMPL 11/26/2013 documented as of this encounter (statuses as of 03/02/2022) [facility] History of Past illness Narrative* Problem Noted Date Resolved Date Hypertensive kidney disease with stage 3 chronic kidney disease 11/03/2020 11/05/2020 Diabetes mellitus with renal complications 05/0111/03/2020 PURE HYPERCHOLESTEROLEM 11/27/19 14 DIABETES MELLITUS TYPE II-UNCOMPL 11/26/2013 documented as of this encounter (statuses as of 04/11/2022) [facility] History of Past illness Narrative* Problem Noted Date Resolved Date Hypertensive kidney disease with stage 3 chronic kidney disease 11/03/2020 11/05/2020 Diabetes mellitus with renal complications 05/0111/03/2020 PURE HYPERCHOLESTEROLEM 11/27/19 14 DIABETES MELLITUS TYPE II-UNCOMPL 11/26/2013 documented as of this encounter (statuses as of 05/27/2022) [facility] History of Past illness Narrative* Problem Noted Date Diagnosed Date Resolved Date Hypertensive kidney disease with stage 3 chronic kidney disease 11/03/2020 11/05/2020 Diabetes mellitus with renal complications 05/01/2014 11/03/2020 PURE HYPERCHOLESTEROLEM 07/1 09/2013 DIABETES MELLITUS TYPE II-UNCOMPL 11/26/2013 documented as of this encounter (statuses as of 11/25/2022) [facility] History of Past illness Narrative* Problem Noted Date Diagnosed Date Resolved Date Hypertensive kidney disease with stage 3 chronic kidney disease 11/03/2020 11/05/2020 Diabetes mellitus with renal complications 05/01/2014 11/03/2020 PURE HYPERCHOLESTEROLEM 07/1 09/2013 DIABETES MELLITUS TYPE II-UNCOMPL 11/26/2013 documented as of this encounter (statuses as of 04/08/2023) [facility] History of Past illness Narrative* Problem Noted Date Diagnosed Date Resolved Date Hypertensive kidney disease with stage 3 chronic kidney disease 11/03/2020 11/05/2020 Diabetes mellitus with renal complications 05/01/2014 11/03/2020 PURE HYPERCHOLESTEROLEM 11/12 DIABETES MELLITUS TYPE II-UNCOMPL 11/26/2013 documented as of this encounter (statuses as of 04/08/2023) [facility] Pieter Morgan [facility] Note Date/Time August 02, 2024 1:1 6pm [facility] Medical Records Department [address] [place] [address] Emergency Department Summary 08/02/24 MR#: [id number] Acct: [id number] Name: LINDSAY ACUNA Rep #:[id number] : 1945 78 From: iPeter Morgan MD PCP: Dr. Kameron Caruso MD [...] the EMR. states they returned home from [facility] about 1.5-2 weeks ago, and they both had colds. He is better, but she is "on round 2." [facility] Medical History Paroxysmal atrial fibrillation with RVR [...] 71.4 H Lymph % (Auto) 17.9 L [place] % (Auto) 8.9 Eos % (Auto) 1.0 [...] on 08/02/2024 at 1250 hours. Reading Location: [facility] Head/Neck CTA 08/02/24 12:24 IMPRESSION: RIGHT CAROTID: Mild degree of calcific plaque at the origin of the right internal carotid artery. LEFT CAROTID: Mild degree of calcific plaque at the origin of the left internal carotid artery. VERTEBRALS: Dominant left vertebral artery INTRACRANIAL: Unremarkable Other impression: No significant stenosis seen. Reading Location: [place] [address] Rhythm Strip Rhythm Strip: A-fib Rate: 90 Ectopy: None EKG Initial EKG: Attestation: I personally reviewed and interpreted this EKG as follows: Interpretation: No Acute Injury Pattern, Atrial Fibrillation and Non-Specific ST Changes Management Discussion w/another healthcare provider: Research Methodologist ([facility] stroke neurology) and Radiologist Stroke Documentation [...] min), Including time spent:, Discussing w/Patient &/or Family/Soft Crab Shedder, Discussing w/Consultants, Arranging Admission or Transfer and [...] MD [Primary Care Provider] - Print Language: Gabonese Disposition Disposition: Acute Care Hospital Discharge Location: [facility] What to do if you have Problems For any increased pain, shortness of breath, bleeding, nausea or vomiting, chestpain, or any unexpected problems, contact your Primary Care Provider. Call [facility] ([phone]) or report to the closest Emergency Room. Call 911 if necessary. 08/02/24 1316 <Electronically signed by Pieter Morgan MD> Cosigner Signature (if applicable): CC: Dr. Kameron Caruso MD ~ Signed [facility] Work Phone: Evaluation note* Diagnosis Need for vaccination- Primary Need for prophylactic vaccination and inoculation against unspecified single disease [facility] [place] [facility]* Diagnosis Type 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, unspecified CKD stage, unspecified whether terminologist insulin use (HCC)- Primary Essential hypertension, benign Hyperlipidemia, unspecified hyperlipidemia type Stage 3b chronic kidney disease (HCC) Hypothyroidism, unspecified type Memory loss [facility]* Diagnosis Type 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, unspecified CKD stage, unspecified whether terminologist insulin use (HCC)- Primary [facility] [place] [facility]* Diagnosis Hyperlipidemia, unspecified hyperlipidemia type Essential hypertension, benign Type 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, unspecified CKD stage, unspecified whether residential insulin use (HCC) documented [facility] [place] [facility]* Diagnosis Type 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, unspecified CKD stage, unspecified whether residential insulin use (HCC) Essential hypertension, benign Hyperlipidemia, unspecified hyperlipidemia type documented [facility] this encounter [facility] [place] [facility]* Diagnosis Acute midline low back pain without sciatica- Primary documented [facility] [place] [facility]* Diagnosis Type 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, unspecified CKD stage, unspecified whether residential insulin use (HCC)- Primary [facility] [place] [facility]* Diagnosis Essential hypertension, benign- Primary Hypothyroidism, unspecified type Type 2 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, without long-term current use of insulin (HCC) Hyperlipidemia, unspecified hyperlipidemia type Chronic kidney disease, stage 3a (HCC) Edema of left lower leg Wellness examination documented [facility] [place] [facility]* Diagnosis Type 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, unspecified CKD stage, unspecified whether terminologist insulin use (HCC) [facility] [place] [facility]* Diagnosis Allergic contact dermatitis due to plant- Primary Contact dermatitis and other eczema due to plants (except food) documented [facility] [place] [facility]* Diagnosis Rash- Primary Rash and other nonspecific skin eruption documented in this encounter [facility] note* Diagnosis Type 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, unspecified CKD stage, unspecified whether terminologist insulin use (HCC)- Primary Essential hypertension, benign Chronic kidney disease, stage 3a (HCC) Hyperlipidemia, unspecified hyperlipidemia type Hypothyroidism, unspecified type Edema of left lower leg Memory loss documented in this encounter [facility] note* Diagnosis Essential hypertension, benign- Primary Type 2 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, without long-term current use of insulin (HCC) Chronic kidney disease, stage 3a (HCC) Hyperlipidemia, unspecified hyperlipidemia type Hypothyroidism, unspecified type Edema of left lower leg Memory loss Urinary incontinence, unspecified type Irregular heart beat Cardiac dysrhythmia, unspecified Atrial fibrillation, unspecified type (HCC) documented in this encounter [facility] note* Diagnosis Atrial fibrillation, unspecified type (HCC)- Primary Hypothyroidism, unspecified type Need for malaria prophylaxis documented in this encounter [facility] note* Diagnosis History of traveler's diarrhea- Primary Personal history of other diseases of digestive system documented in this encounter [facility] note* Diagnosis History of traveler's diarrhea Personal history of other diseases of digestive system documented in this encounter [facility] noteNo assessment information availableWBlanchard [facility] Work Phone: Evaluation note* Diagnosis Acute ischemic right MCA stroke- Primary Unspecified cerebral artery occlusion with cerebral infarction Cerebrovascular accident (CVA), unspecified mechanism Renal disease (High Serum Creatinine) Unspecified disorder of kidney and ureter Type 2 diabetes mellitus with hyperglycemia Type II or unspecified type diabetes mellitus without mention of complication, not stated as uncontrolled [facility] N[facility] No data available for this section Tyler Tariqwn Reason for referral (narrative)* Outpatient Procedure (Routine) - Pending Review Specialty Diagnoses / Procedures Referred By Contac t Referred To Contact [facility] Diagnoses Atrial fibrillation, unspecified type (HCC) Procedures ECHO ECHO TTHRC R-T 2D W/WOM-MODE COMPL SPEC&COLR D Kameron Caruso MD [address] [place] [address] [id number] [place] [address] Referral ID Status Reason Start Date Expiration Date Visits Requested Visits Authorized [id number] Pending Review Auto-Generat ed Referral 05/31/2024 05/31/2025 1 1 * Outpatient Procedure (Routine) - New Request Specialty Diagnoses / Procedures Referred By Contteofilo t Referred To Contact [facility] Diagnoses Irregular heart beat Procedures ECG COMPLETE ECG ROUTINE ECG W/LEAST 12 LDS W/I&R Kameron Caruso MD [address] [place] [address] [id number] [place] [address] Referral ID Status Reason Start Date Expiration Date Visits Requested Visits Authorized [id number] New Request Auto-Generat ed Referral 05/31/2024 05/31/2025 1 1 [facility] (n[facility]ative)No reason for referral information availableWBlanchard Valley [facility] Work Phone: Reason for visit Narrative* Auth/Cert Specialty Diagnoses / Procedures Referred By Contac t Referred To Contact Diagnoses Acute ischemic right MCA stroke Cerebrovascular Accident (Level A Ishemic Stroke) Prema Rodgers MD [address] [place] [phone] Phone: tel: fax: [facility] [address] [place] [address] Referral ID Status Reason Start Date Expiration Date Visits Re quested Visits Authorized [id number] 1 1 [facility] Summary Purpose Family History No Family History Records Found Relationship Condition Age at Onset Recorded Date/T monse mother Diabetes mellitus Unknown Hypertension Unknown Psychiatric disorder Unknown grandmother Malignant neoplasm Unknown sister Disorder of thyroid Unknown Advance Directives No Advanced Directives Records FoundDocuments on File Type Date Recorded Patient Road Mender 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 Advance Directives and Living Will Power of Mainspring [employer] Cleaner Latest Code Status on File Code Status Date Activated Date Inactivated Comments Full Code 01/09/2019 10:16 AM Latest Code Status on File Code Status Date Activated Date Inactivated Comments Full Code 10/16/2019 9:16 AM Full Code 01/09/2019 10:16 AM 01/09/2019 2:23 PM Documents on File Type Date Recorded Patient Road Mender 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 Advance Directive(s) 11/07/2018 6:45 AM Advance Directive(s) 09/29/2015 10:09 PM Advance Directive Response Recorded Date/ Time Living Will No August 02, 2024 12:46pm Do you have a Healthcare Power of Mainspring Bar[employer] Cleaner? No August 02, 2024 12:46pm Date Activated [...] patient had a polyp identified by on {time:78943}. Biopsies {are/were w not:9034} taken. The patient's usual bowel pattern is {bowel pattern:27597}. Bowel movements {bowel changes:83911} . {abd pain:04648}. The patient has noted{bleeding with BM:44416}. The patient {does/do/not:49466} have a family history of colon polyps. The patient {does/do/not:87597} have a family history of colon cancer. [...] section and content) DATE CREATED AUTHOR 08/31/2018 [facility] ([place]) DATE CREATED AUTHOR AUTHOR'S ORGANIZ ATION 10/18/2019 [facility] DATE CREATED AUTHOR AUTHOR'S ORGANIZ ATION 08/04/2024 [facility] DATE CREATED AUTHOR AUTHOR'S ORGANIZ ATION 08/07/2024 [facility] DATE CREATED AUTHOR AUTHOR'S ORGANIZ ATION 09/01/[address] [facility] DATE CREATED AUTHOR AUTHOR'S ORGANIZ ATION 10/13/2024 [facility] DATE CREATED AUTHOR AUTHOR'S ORGANIZ ATION 11/08/[address] [facility] DATE CREATED AUTHOR AUTHOR'S ORGANIZ ATION 11/23/2024 [facility] Source Comments (unrecognize d section and content) In the event this informatio n is protected by the Federal Confidentiality of Alcohol and Drug Abuse Patient Records regulations: The Federal rules restrict any use of the information to criminally investigate or prosecute any alcohol or drug abuse patient.[facility] the event this information is protected by the Federal Confidentiality of Alcohol and Drug Abuse Patient Records regulations: The Federal rules restrict any use of the information to criminally investigate or prosecute any alcohol or drug abuse patient.[facility] the event this information is protected by the Federal Confidentiality of Alcohol and Drug Abuse Patient Records regulations: The Federal rules restrict any use of the information to criminally investigate or prosecute any alcohol or drug abuse patient.[facility] the event this information is protected by the Federal Confidentiality of Alcohol and Drug Abuse Patient Records regulations: The Federal rules restrict any use of the information to criminally investigate or prosecute any alcohol or drug abuse patient.[facility] the event this information is protected by the Federal Confidentiality of Alcohol and Drug Abuse Patient Records regulations: The Federal rules restrict any use of the information to criminally investigate or prosecute any alcohol or drug abuse patient.[facility] the event this information is protected by the Federal Confidentiality of Alcohol and Drug Abuse Patient Records regulations: The Federal rules restrict any use of the information to criminally investigate or prosecute any alcohol or drug abuse patient.[facility] the event this information is protected by the Federal Confidentiality of Alcohol and Drug Abuse Patient Records regulations: The Federal rules restrict any use of the information to criminally investigate or prosecute any alcohol or drug abuse patient.[facility] the event this information is protected by the Federal Confidentiality of Alcohol and Drug Abuse Patient Records regulations: The Federal rules restrict any use of the information to criminally investigate or prosecute any alcohol or drug abuse patient.[facility] AndersonIn the event this information is protected by the Federal Confidentiality of Alcohol and Drug Abuse Patient Records regulations: The Federal rules restrict any use of the information to criminally investigate or prosecute any alcohol or drug abuse patient.[facility] AndersonIn the event this information is protected by the Federal Confidentiality of Alcohol and Drug Abuse Patient Records regulations: The Federal rules restrict any use of the information to criminally investigate or prosecute any alcohol or drug abuse patient.[facility] the event this information is protected by the Federal Confidentiality of Alcohol and Drug Abuse Patient Records regulations: The Federal rules restrict any use of the information to criminally investigate or prosecute any alcohol or drug abuse patient.[facility] the event this information is protected by the Federal Confidentiality of Alcohol and Drug Abuse Patient Records regulations: The Federal rules restrict any use of the information to criminally investigate or prosecute any alcohol or drug abuse patient.[facility] Anderson[facility] the event this information is protected by the Federal Confidentiality of Alcohol and Drug Abuse Patient Records regulations: The Federal rules restrict any use of the information to criminally investigate or prosecute any alcohol or drug abuse patient.[facility] AndersonIn the event this information is protected by the Federal Confidentiality of Alcohol and Drug Abuse Patient Records regulations: The Federal rules restrict any use of the information to criminally investigate or prosecute any alcohol or drug abuse patient.[facility] Anderson[facility] the event this information is protected by the Federal Confidentiality of Alcohol and Drug Abuse Patient Records regulations: The Federal rules restrict any use of the information to criminally investigate or prosecute any alcohol or drug abuse patient.[facility] AndersonIn the event this information is protected by the Federal Confidentiality of Alcohol and Drug Abuse Patient Records regulations: The Federal rules restrict any use of the information to criminally investigate or prosecute any alcohol or drug abuse patient.[facility] AndersonIn the event this information is protected by the Federal Confidentiality of Alcohol and Drug Abuse Patient Records regulations: The Federal rules restrict any use of the information to criminally investigate or prosecute any alcohol or drug abuse patient.[facility] AndersonIn the event this information is protected by the Federal Confidentiality of Alcohol and Drug Abuse Patient Records regulations: The Federal rules restrict any use of the information to criminally investigate or prosecute any alcohol or drug abuse patient.[facility] AndersonIn the event this information is protected by the Federal Confidentiality of Alcohol and Drug Abuse Patient Records regulations: The Federal rules restrict any use of the information to criminally investigate or prosecute any alcohol or drug abuse patient.[facility] AndersonIn the event this information is protected by the Federal Confidentiality of Alcohol and Drug Abuse Patient Records regulations: The Federal rules restrict any use of the information to criminally investigate or prosecute any alcohol or drug abuse patient.[facility] AndersonIn the event this information is protected by the Federal Confidentiality of Alcohol and Drug Abuse Patient Records regulations: The Federal rules restrict any use of the information to criminally investigate or prosecute any alcohol or drug abuse patient.[facility] AndersonIn the event this information is protected by the Federal Confidentiality of Alcohol and Drug Abuse Patient Records regulations: The Federal rules restrict any use of the information to criminally investigate or prosecute any alcohol or drug abuse patient.[facility] AndersonIn the event this information is protected by the Federal Confidentiality of Alcohol and Drug Abuse Patient Records regulations: The Federal rules restrict any use of the information to criminally investigate or prosecute any alcohol or drug abuse patient.[facility] AndersonIn the event this information is protected by the Federal Confidentiality of Alcohol and Drug Abuse Patient Records regulations: The Federal rules restrict any use of the information to criminally investigate or prosecute any alcohol or drug abuse patient.[facility] AndersonIn the event this information is protected by the Federal Confidentiality of Alcohol and Drug Abuse Patient Records regulations: The Federal rules restrict any use of the information to criminally investigate or prosecute any alcohol or drug abuse patient.[facility]In the event this information is protected by the Federal Confidentiality of Alcohol and Drug Abuse Patient Records regulations: The Federal rules restrict any use of the information to criminally investigate or prosecute any alcohol or drug abuse patient.[facility] the event this information is protected by the Federal Confidentiality of Alcohol and Drug Abuse Patient Records regulations: The Federal rules restrict any use of the information to criminally investigate or prosecute any alcohol or drug abuse patient.[facility] the event this information is protected by the Federal Confidentiality of Alcohol and Drug Abuse Patient Records regulations: The Federal rules restrict any use of the information to criminally investigate or prosecute any alcohol or drug abuse patient.[facility] Reason for Visit (unrecogniz ed section and [...] Reason Comments request for medication Reason Comments [facility] requesting verbal agree to f [facility] Teams (unrecognized sec tion and content) Senior Cost Estimator Relationship Specialty Start Date End Date Kameron Caruso MD [address] [place] [address] PCP - General Family Practice 09/21/15 Senior Cost Estimator Relationship Specialty Start Date End Date Kameron Caruso MD [address] [place] [address] PCP - General Family Practice 09/21/15 Senior Cost Estimator Relationship Specialty Start Date End Date Kameron Caruso MD [address] [place] [address] PCP - General Family Practice 09/21/15 Senior Cost Estimator Relationship Specialty Start Date End Date Kameron Caruso MD [address] [place] [address] PCP - General Family Practice 09/21/15 Senior Cost Estimator Relationship Specialty Start Date End Date Kameron Caruso MD [address] [place] [address] PCP - General Family Practice 09/21/15 Senior Cost Estimator Relationship Specialty Start Date End Date Kameron Caruso MD [address] [place] [address] PCP - General Family Practice 09/21/15 Senior Cost Estimator Relationship Specialty Start Date End Date Kameron Caruso MD [address] [place] [address] PCP - General Family Medicine 09/21/15 Senior Cost Estimator Relationship Specialty Start Date End Date Kameron Caruso MD [address] [place] [address] PCP - General Family Medicine 09/21/15 Senior Cost Estimator Relationship Specialty Start Date End Date Kameron Caruso MD [address] [place] [address] PCP - General Family Medicine 09/21/15 Senior Cost Estimator Relationship Specialty Start Date End Date Kameron Caruso MD [address] [place] [address] PCP - General Family Medicine 09/21/15 Senior Cost Estimator Relationship Specialty Start Date End Date Kameron Caruso MD [address] [place] [address] PCP - General Family Medicine 09/21/15 Senior Cost Estimator Relationship Specialty Start Date End Date Kameron Caruso MD [address] [place] [address] PCP - General Family Medicine 09/21/15 Senior Cost Estimator Relationship Specialty Start Date End Date Kameron Caruso MD [address] [place] [address] PCP - General Family Medicine 09/21/15 Senior Cost Estimator Relationship Specialty Start Date End Date Kameron Caruso MD [address] [place] [address] PCP - General Family Medicine 09/21/15 Senior Cost Estimator Relationship Specialty Start Date End Date Kameron Crauso MD [address] [place] [address] PCP - General Family Medicine 09/21/15 Senior Cost Estimator Relationship Specialty Start Date End Date Kameron Caruso MD [address] [place] [address] PCP - General Family Medicine 09/21/15 Emma Sotomayor APRN.SLASHER TENDER HELPER [address] [place] [address] Field Education Coordinator Family Medicine 04/21/24 Mj Glover CARDIOTHORACIC PHYSIOTHERAPIST.SLASHER TENDER HELPER [address] [place] [address] Field Education Coordinator Family Medicine 04/30/24 Senior Cost Estimator Relationship Specialty Start Date End Date Kameron Caruso MD [address] [place] [address] PCP - General Family Medicine 09/21/15 Emma Sotomayor APRN.SLASHER TENDER HELPER [address] [place] [address] Field Education Coordinator Family Medicine 04/21/24 Mj Glover APRN.SLASHER TENDER HELPER [address] [place] [address] Field Education Coordinator Family Medicine 04/30/24 Senior Cost Estimator Relationship Specialty Start Date End Date Kameron Caruso MD [address] [place] [address] PCP - General Family Medicine 09/21/15 Emma Sotomayor APRN.SLASHER TENDER HELPER [address] [place] [address] Field Education Coordinator Family Medicine 04/21/24 Mj Glover APRN.SLASHER TENDER HELPER [address] [place] [address] Field Education Coordinator Family Medicine 04/30/24 Senior Cost Estimator Relationship Specialty Start Date End Date Kameron Caruso MD [address] [place] [address] PCP - General Family Medicine 09/21/15 Emma Sotomayor APRN.SLASHER TENDER HELPER [address] [place] [address] Field Education Coordinator Family Medicine 04/21/24 Mj Glover APRN.SLASHER TENDER HELPER [address] [place] [address] Field Education Coordinator Family Medicine 04/30/24 Senior Cost Estimator Relationship Specialty Start Date End Date Kameron Caruso MD [address] [place] [address] PCP - General Family Medicine 09/21/15 Emma Sotomayor APRN.SLASHER TENDER HELPER [address] [place] [address] Field Education Coordinator Family Medicine 04/21/24 Mj Glover APRN.SLASHER TENDER HELPER [address] [place] [address] Field Education Coordinator Family [facility] 04/30/24 Senior Cost Estimator Relationship Specialty Start Date End Date Kameron Caruso MD [address] [place] [address] PCP - General Family Medicine 09/21/15 Emma Sotomayor APRN.SLASHER TENDER HELPER [address] [place] [address] Field Education Coordinator Family Medicine 04/21/24 Mj Glover APRN.SLASHER TENDER HELPER [address] [place] [address] Field Education Coordinator [facility] 04/30/24 Senior Cost Estimator Relationship Specialty Start Date End Date Kameron Caruso MD [address] [place] [address] PCP - General Family Medicine 09/21/15 Emma Sotomayor APRN.SLASHER TENDER HELPER [address] [place] [address] Field Education Coordinator Family Medicine 04/21/24 Mj Glover APRN.SLASHER TENDER HELPER [address] [place] [address] Field Education Coordinator [facility] 04/30/24 Team Status: Active Member Role Status Dates Dr. Kameron Caruso MD Primary Care Provider Active Team Status: Inactive Member Role Status Dates Dr. Kameron Caruso MD Primary Care Provider Active Start: August 02, 2024 End: August 02, 2024 Dr. Pieter Morgan MD Emergency Provider Active Start: August 02, 2024 End: August 02, 2024 Senior Cost Estimator Relationship Specialty Start Date End Date Kameron Carsuo MD [address] [place] [address] PCP - General Family Medicine 08/03/24 Senior Cost Estimator Relationship Specialty Start Date End Date Kameron Caruso MD [address] [place] [address] PCP - General Family Medicine 09/21/15 Emma Sotomayor, CARDIOTHORACIC PHYSIOTHERAPIST.SLASHER TENDER HELPER [address] [place] [address] Field Education Coordinator Family Medicine 04/21/24 Mj Glover APRN.SLASHER TENDER HELPER [address] [place] [address] Field Education Coordinator Family Medicine 04/30/24 Team Status: Inactive Member [...] RN)2041 (Given - Provider: Shanna Catalan RN) 806 (Given - Provider: Robson Steel RN) Atorvastatin [...] when needed. 0007 (Given - Provider: Katia Parehk, ZOE)0507 (Given - Provider: Katia Parekh, RN)1139 (Given - Provider: Shanna Palmer RN)1753 (Given - Provider: Shanna Palmer RN) 0044 (Given - Provider: Shaila Eng RN)0625 (Given - Provider: Shaila Eng RN)1217 (Given - Provider: Eneida Cespedes RN)1757 (Given - Provider: Enedia Cespedes RN) 0018 (Given - Provider: Shanna [...] with symptoms) 0806 (Not Given - Provider: Maygan Nando, RN - Reason: Patient/family refused) Sodium chloride [...] Katia Parekh RN)0507 (Given - Provider: Katia Parekh, RN)0906 (Given - Provider: hSanna Palmer RN)1351 (Given - Provider: Shanna Palmer RN)1758 (Given - Provider: Shanna Palmer RN)2129 (Given - Provider: Shaila Eng, RN) 0113 (Given - Provider: Shaila Eng [...] glucose is greater than 200mg/dl, then notify malt house kiln operator. And BLOOD GLUCOSE (POC DEVICE) (CANCELED) Routine, [...] at 1301, Until Specified, Who to Notify: Electrical Cad Technician, For all Blood Glucose LESS THAN 80 mg/dl, notify Electrical Cad Technician after treatment per Hypoglycemia in Non- Adults [...] NEEDED, Starting on Mon08/09/24 at 1533, Until Mon08/15/24 at 1259, Moderate Pain, Maximum dose of acetaminophen is 4000 mg from all sources in 24 hours. Group 5: hydrALAZINE (APRESOLINE) injection 10 mgJump to med 10 mg, Intravenous, EVERY 1 HOUR NEEDED, Starting on Mon08/04/24 at 1154, Until Mon08/15/24 at 1259, SBP > 160 mmHg with [...] BE BASED ON THE PRIMARY CLINICAL RECORDS. [employer] [facility]. provides no warranty or guarantee of the accuracy or completeness of information in this document.
[2024-11-26 07:08] LABS: Hematocrit 42.7 % (37-47); Hemoglobin 13.6 g/dL (12.0-15.0); Immature Granulocytes Count 0.040 X10^3/uL (0.0-0.0); Mean Corp Hgb Conc 31.9 g/dL (32-36); Mean Corpuscular Volume 92.0 fL (81-99); Mean Platelet Vol. 11.5 fl (6.2-12.0); NRBC Flagged by Analyzer 0 % (0-5); Platelet Count 283 K/mm3 (150-450); RBC Distribution Width CV 14.2 % (11.6-14.6); RBC Distribution Width SD 48.0 fl (35.1-43.9); Red Blood Count 4.64 M/mm3 (4.2-5.4); White Blood Count 8.1 K/mm3 (4.4-11.0)
[2024-11-26 07:24] LABS: Anion Gap 13 (5-15); BUN 22 mg/dL (4-19); BUN/Creat Ratio 24.3 RATIO (10-20); Calcium,Total 10.0 mg/dL (7.6-11.0); Carbon Dioxide 27.1 mmol/L (21.0-32.0); Chloride 101 mmol/L (98-108); Glucose 97 mg/dL (70-99); Potassium 3.8 mmol/L (3.3-5.1)
== END ==
LOC: OLS.WHLTCC 05:20
PROVIDERS: PCP Family Medicine; Referring Provider Internal Medicine; Visit Provider Internal Medicine
DX: I10 Essential (primary) hypertension (principal); E11.9 Type 2 diabetes mellitus without complications; I69.354 Hemiplegia and hemiparesis following cerebral infarction affecting left non-dominant side; I69.391 Dysphagia following cerebral infarction
CPT/HCPCS: 36415; 80048; 85025

== ENCOUNTER → 2024-12-03 05:00 | Outpatient (REF) | payer MEDICARE, SELFPAY ==
--- OUTSIDE RECORDS SUMMARY | 2024-12-03 03:55 | XMS RPT_ITS | CCD ---
Author Organization [facility] Care Team Providers Care Saw Handle Assembler Name Role Phone KETTY DOWNS Attending Unavailable [...] Kameron Caruso MD Primary Care Provider Светлана MOSAIC TILER.Emma TUCKER Unavailable Saurav MOSAIC TILER.Mj TUCKER Unavailable JUVENTINO ROGERS Attending Unavailable JUVENTINO ROGERS Admitting Unavailable CATA ALFRED Attending Unavailable CATA ALFRED Admitting Unavailable Dr. Kameron Caruso MD Primary Care Provider Dr. Pieter Morgan MD Emergency Provider Kameron Caruso MD Primary Care Provider Светлана MOSAIC TILER.Emma TUCKER Unavailable Unavail able KAMERON CARUSO Referring Unavailable KAMERON CARUSO Primary Care Unavailable KAMERON CARUSO Attending Unavailable KAMERON CARUSO Primary Care Unavailable EMMA SOTOMAYOR Attending Unavailable LEO, KAMERON Beebe Primary Care Unavailable LEO, KAMERON Beebe Primary Care Unavailable LEO, KAMERON Beebe Primary Care Unavailable LEO, KAMERON Beebe Referring Unavailable LEO, KAMERON Beebe Primary Care Unavailable LEO, KAMERON Beebe Attending Unavailable LEO, KAMERON Beebe Primary Care Unavailable LEO, KAMERON Beebe Referring Unavailable LEO, KAMERON Beebe Primary Care Unavailable KAMERON CARUSO Attending Unavailable KAMERON CARUSO Primary Care Unavailable LEO LAWSON, DR MELO Primary Care Physician Cathy LAWSON, Dr. Stapleton Attending Provider Safia Ruelas MD Attending Provider Unavaila ari Caruso MD, Dr. Melo Referring Provider Makayla LAWSON, Dr. Barker Attending Provider LEO LAWSON, DR MELO Primary Care Unavailab SILVINO Monzon DO Admitting Unavailable SILVINO HA DO Attending Unavailable BRYON LAWSON, DR REECE Consulting Unavailab shital HUTTON DO, NANDO Consulting Unavailable SUDARSHAN MOSAIC TILER-SPEECH THERAPIST, AMI Hwang Consulting Unavaila ari GIBSON PhD, MATTHEW Zamudio Consulting Unavailable CHRISTOS VOSS Attending Unavailable CONSULT, GASTROENTEROLOGY Consulting PIETER Wolf Referring Unavailable PREMA RAMOS Admitting Unavailable KAMERON CARUSO Primary Care Unavailable RICHARD MEJIA Referring Unavailable LUCINDA PEACOCK S Attending Unavailable LUCINDA PEACOCK Admitting Unavailable Jessenia LAWSON, Dr. Baig Attending Provider [phone] Claudio PRICING LEAD-CBret Attending Provider [phone] Safia Ruelas MD Referring Provider UnavailSafia Marinelli Attending UnavailKameron Felix Primary Care Unavailable Safia Vanegas Attending Unavailabl e Kameron Caruso Primary Care Unavailable Safia Vanegas Attending UnavailKameron Felix Primary Care Unavailable Safia Vanegas Attending UnavailKameron Felix Primary Care Unavailable Safia Vanegas Attending Unavailabl e Elderbrock, Kameron Primary Care Unavailable Pieter Morgan Attending Unavailable Elderbrock, Kameron Primary Care Unavailable Oleghe OLS, Efewongbe Attending Unavailabl e Oleghe OLS, Efewongbe Referring Unavailabl e Elderbrock, Kameron Primary Care Unavailable Oleghe OLS, Efewongbe Attending Unavailabl e Elderbrock, Kameron Primary Care Unavailable Oleghe OLS, Efewongbe Attending Unavailabl e Elderbrock, Kameron Primary Care Unavailable Tickton PRICING LEAD, Bret Attending Unavailable Elderbrock, Kameron Primary Care Unavailable Tickton PRICING LEAD, Bret Attending Unavailable Elderbrock, Kameron Primary Care Unavailable Oleghe OLS, Efewongbe Attending Unavailabl e Elderbrock, Kameron Primary Care Unavailable Oleghe OLS, Efewongbe Attending Unavailabl e Elderbrock, Kameron Primary Care Unavailable Oleghe OLS, Efewongbe Attending Unavailabl e Elderbrock, Kameron Primary Care Unavailable Mj Benavides Attending Unavailable Elderbrock, Kameron Primary Care Unavailable Elderbrock, Kameron Referring Unavailable Oleghe, Efewongbe Attending Unavailable Elderbrock, Kameron Primary Care Unavailable Tickton PRICING LEAD, Bret Attending Unavailable Elderbrock, Kameron Primary Care Unavailable Tickton PRICING LEAD, Bret Attending Unavailable Elderbrock, Kameron Primary Care Unavailable Oleghe, Efewongbe Attending Unavailable Elderbrock, Kameron Primary Care Unavailable Oleghe OLS, Efewongbe Attending Unavailabl e Elderbrock, Kameron Primary Care Unavailable Oleghe OLS, Efewongbe Attending Unavailabl e Elderbrock, Kameron Primary Care Unavailable Oleghe OLS, Efewongbe Attending Unavailabl e Elderbrock, Kameron Primary Care Unavailable Oleghe OLS, Efewongbe Attending Unavailabl e Elderbrock, Kameron Primary Care Unavailable Allergies Allergy Classification Reported Allergen(s) Allergy Type Date of Onset Reaction(s) Facility (2 sources) Sulfonamides (Antibiotic) Propensity to adverse reactions to drug 6 Other (See Comments) [place], [place] (2 sources) Other Propensity to adverse reactions 6 Shortness Of Breath [place], [place] (20 sources) Benzocaine; Translations: [BENZOCAINE] Drug Allergy 6 Rash [facility] Work Phone: (20 sources) Cocaine; Translations: [COCAINE] Drug Allergy 9 Inverted T waves [facility] Work Phone: (20 sources) Sulfonamides (Antibiotic); Translations: [SULFA (SULFONAMIDE ANTIBIOTICS)] Propensity to adverse reactions 6 Intolerance [facility] Work Phone: (20 sources) Perfumes; Translations: [PERFUMES] Propensity to adverse reactions 6 Shortness of Breath [facility] Work Phone: (6 sources) Sulfonamides (Antibiotic) Allergy to substance 5 Unknown [facility] (8 sources) perfume; Translations: [perfume] Allergy to substance 5 Shortness of breath [facility] (1 source) Cocaine; Translations: [cocaine nasal] Drug Allergy [facility] (1 source) Codeine; Translations: [codeine] Drug Allergy Pharyngeal swelling (finding) [facility] (1 source) Sulfonamide; Translations: [sulfa drugs] Drug allergy [facility] (1 source) Benzocaine Drug Allergy 5 [facility] (1 source) Cocaine Drug Allergy 5 [facility] (1 source) Sulfonamides (Antibiotic) Drug allergy (disorder) 5 [facility] Medications Current Medications Medication Drug [...] nee ded apixaban 2.5 mg oral tablet (20 sources) Factor Xa Inhibitor Start: 10-02-2024 take [...] days. donepezil hydrochloride 5 mg oral tablet (6 sources) Start: take 1 tablet by mouth [...] 08-14-2024 End: 11-12-2024 Start: 07-07-2022 End: 08-14-2024 take 1 tablet by mouth once daily at breakfast Glimepiride 2 mg tablet Active 2 mg PO EVERY MORNING July 03, 2024 1:00am administer with breakfast Comment on above: Take 1 tablet by [...] kidney disease, unspecified CKD stage, unspecified whether [facility] insulin use ([facility]) , Type 2 diabetes [...] BY MO UTH ONCE DAILY WITH BREAKFAST methylPREDNISolone (1 source) Corticosteroid Start: 2023 End: 2023 methylPREDNISolone (MEDROL, KIKE,) 4 mg Dose-Pack Follow dosing instructions, take with food. 21 tablet 0 09/29/2023 10/05/2023 Active metoprolol tartrate 50 mg oral tablet (20 sources) beta-Adrenergic Shea Start: 2024 take 2 tablets by mouth once daily Metoprolol Tartrate 50 mg tablet Active 100 mg PO daily October 02, 2024 10:05am Start: 10-02-2024 End: 10-02-2024 take 1 tablet by mouth at bedtime Metoprolol Tartrate 50 mg tablet Active 50 mg PO AT BEDTIME 90 3 October 02, 2024 12:00am Start: 08-15-2024 End: [...] Sig (Original) amoxicillin 500 mg oral capsule (6 sources) Penicillin-class Antibacterial Start: 08-02-2024 End: 10-02-2024 [...] needed doxycycline hyclate 100 mg oral capsule (10 sources) Tetracycline-class Drug Start: 2024 End: 2024 [...] kidney disease, unspecified CKD stage, unspecified whether [facility] insulin use (HCC) Take 1 tablet by [...] 08-09-2024 End: 08-15-2024 Start: 08-08-2024 End: 08-09-2024 methylphenidate hydrochloride 5 mg oral tablet (20 sources) Central Nervous System Stimulant Start: 10-02-2024 End: 11-07-2024 take 1 tablet by mouth once daily in the morning Methylphenidate Hcl 5 mg tablet Discontinued 5 mg PO EVERY MORNING 20 20 0 October 22, 2024 November 10, 2024 12:00am November 07, 2024 12:36pm Cerebrovascular accident (CVA) Cerebral infarction, unspecified Via PEG tube Start: 09-12-2024 End: 10-02-2024 take 1 tablet by mouth twice daily Methylphenidate Hcl 5 mg tablet Discontinued 5 mg PO TWICE A DAY 40 20 0 September 16, 2024 October 05, 2024 12:00am October 02, 2024 9:42am Cerebrovascular accident (CVA) Cerebral infarction, unspecified Via PEG tube Start: 09-09-2024 End: 09-16-2024 Ritalin 5 mg oral tablet Dos e : 5 mg = 1 tab(s), Oral, BID, 0 Refill(s), 76 Start Date: 09/09/24 Status: Ordered Repeat number: 1 200 ml niCARdipine hydrochloride 0.2 mg/ml injection (1 source) Dihydropyridine Calcium Channel Shea Start: 08-03-2024 End: 08-04-2024 2 ml ondansetron 2 mg/ml injection (2 sources) Serotonin-3 Receptor Antagonist Start: 08-03-2024 End: 08-15-2024 take 4 mg intravenously every four hours as needed Start: 08-03-2024 End: 08-03-2024 24 hr oxybutynin chloride 5 mg extended release oral tablet (17 sources) Cholinergic Muscarinic Antagonist Start: 05-31-2024 End: [...] 08-15-2024 Start: 08-04-2024 End: 08-09-2024 triamcinolone acetonide 0.77420 mg/mg topical ointment (3 sources) Corticosteroid Start: [...] HOURS, First dose (after last modification) on [facility] 08/03/24 at 1800, Until Discontinued, Correction factor [...] Routine, EVERY 6 HOURS, First occurrence on [facility] 08/03/24 at 1800, If any Blood Glucose (POC) is greater than 300mg/dl, treat per correction factor orders; and repeat Blood Glucose (POC) in 2 hours if second blood glucose is greater than 200mg/dl, then notify greenhouse manager. [Order 2 End] [Order 3 Start] [...] at 1301, Until Specified, Who to Notify: Product Development Director, For all Blood Glucose LESS THAN 80 mg/dl, notify Product Development Director after treatment per Hypoglycemia in Non- [...] Documented Da te Episodic/Chronic Acute cerebrovascular disease (20 sources) Ischemic stroke; Translations: [Cerebral infarction due [...] of rectal cancer] 04-16-2019 Episodic Cardiac dysrhythmias (20 sources) Irregular heart beat; Translations: [Cardiac arrhythmia, [...] Episodic Coronary atherosclerosis and other heart disease (8 sources) Coronary arteriosclerosis; 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] Onset: 5 [...] unspecified site] Onset: 5 Chronic Other aftercare (6 sources) 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; 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] 08-02-2024 Episodic Other aftercare (1 source) correction (current) use of aspirin; Translations: [correction (current) use of aspirin] Onset: 5 Episodic Other aftercare (1 source) correction (current) use of anticoagulants; 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] Onset: 5 Episodic Other aftercare (1 source) correction (current) use of oral hypoglycemic drugs; Translations: [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] Onset: 5 Episodic Other circulatory disease (1 source) Hypotension, unspecified; Translations: [Hypotension, unspecified] Onset: 5 Episodic Other connective tissue disease (1 source) Pain in left arm; Translations: [Pain in left arm] Onset: 5 Episodic Other diseases of bladder and urethra (1 source) Overactive bladder; Translations: [Overactive bladder] Onset: Chronic Other diseases of kidney and ureters (8 sources) Kidney disease; Translations: [Disorder of kidney and ureter, unspecified] Onset: 5 07-03-2024 Episodic Other diseases of kidney and ureters (6 sources) Chronic renal insufficiency; Translations: [Disorder of kidney and ureter, unspecified] 08-02-2024 Episodic Other eye disorders (6 sources) H/O: Bilateral cataract extraction; Translations: [Cataract extraction status, right eye] 07-03-2024 Episodic Other gastrointestinal disorders (1 source) Gastrostomy status; 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 Other gastrointestinal disorders (1 source) Dysphagia; Translations: [Dysphagia, unspecified] Onset: Episodic Other gastrointestinal disorders (1 source) Dysphagia, unspecified; Translations: [Dysphagia, unspecified] Onset: Episodic Other gastrointestinal disorders (2 sources) Diarrhea, unspecified; Translations: [Diarrhea, unspecified] Onset: Episodic [...] Onset: 5 Episodic Other upper respiratory infections (6 sources) Upper respiratory infection; Translations: [Acute upper [...] Cough, unspecified; Translations: [Cough, unspecified] Onset: 5 Unclassified (2 sources) CVA Onset: 5 Urinary tract infections (1 source) Urinary tract infection, site not specified; Translations: [Urinary tract infection, site not specified] Onset: 5 Episodic Past or Other Problems Problem Classification [...] Test Name Value Interpretation Reference Range Facility Absolute lymphocyte countOrd ered By: Safia Ruelas on 11-26-2024 Lymphocytes Auto (Unsp spec) [#/Vol] 2.99 10*3/uL 0.83-4.51 [facility] Absolute neutrophil countOrd ered By: Safia Ruelas on 11-26-2024 Neutrophils (Bld) [#/Vol] 4.2 10*3/uL 2.0-7.7 [facility] Anion gap in Serum or Plasma Ordered By: Safia Griderbonikayla on 11-26-2024 Anion gap [Moles/Vol] 13 mmol/L 5-15 [facility] Automated lymphocyte count a s percentage of total leukocytesOrdered By: Safia Griderbonikayla on 11-26-2024 Lymphocytes/100 WBC Auto (Unsp spec) 37.1 % 19-41 [facility] BUN/creatinine ratioOrdered By: sherry Griderbonikayla on 11-26-2024 Urea nitrogen/Creatinine [Mass ratio] 24.3 mg/mg High 10-20 [facility] Basophil percentageOrdered B y: Safia Cheobonikayla on 11-26-2024 Basophils/100 WBC (Bld) 0.7 % 0-1 [facility] Carbon dioxide, total [Moles /volume] in Central venous bloodOrdered By: Safia Cheobonikayla on 11-26-2024 CO2 [Moles/Vol] 27.1 mmol/L 21.0-32.0 [facility] Chloride assayOrdered By: Balbir sherry Cheobonikayla on 11-26-2024 Chloride [Moles/Vol] 101 mmol/L 98-108 [facility] Eosinophil percentageOrdered By: Leonidesdesireeskye Cheobonikayla on 11-26-2024 Eosinophils/100 WBC (Bld) 1.9 % 0-5 [facility] Erythrocyte distribution wid th ratioOrdered By: Leonidesjosé antonio Cheobonikayla on 11-26-2024 Erythrocyte distribution width (RBC) [Ratio] 14.2 % 11.6-14.6 [facility] Erythrocyte distribution wid th standard deviationOrdered By: jean mariefittstownskye Griderbonikayla on 11-26-2024 Erythrocyte distribution width (RBC) [Ratio] 48.0 fl High 35.1-43.9 [facility] Glomerular filtration rate ( GFR) estimation/1.73 sq m using serum, plasma, or whole bOrdered By: Safia Ruelas on 11-26-2024 GFR/1.73 sq M.predicted among non-blacks MDRD (S/P/Bld) [Vol rate/Area] 63 mL/min/{1.73_m2} >60 [facility] Comment on above: mL/min/1.73m2 CKD-EP I Creatinine Equation (2020) Hematocrit Auto (Bld) [Volum e fraction]Ordered By: Safia Ruelas on 11-26-2024 Hematocrit (Bld) [Volume fraction] 42.7 % 37-47 [facility] Hemoglobin measurementOrdere d By: Safia Ruelas on 11-26-2024 Hemoglobin (Bld) [Mass/Vol] 13.6 g/dL 12.0-15.0 [facility] Immature granulocytes/100 WB C Auto (Bld)Ordered By: Safia Ruelas on 11-26-2024 Immature granulocytes/100 WBC (Bld) 0.500 % 0.0-0.9 [facility] Comment on above: IG% - Immature Granu locytes (promyelocytes, myelocytes and metamyelocytes) > 1% indicates that a LEFT SHIFT is Present. MCV (mean corpuscular volume ) determinationOrdered By: Safia Ruelas on 11-26-2024 MCV (RBC) [Entitic vol] 92.0 fL 81-99 [facility] Mean corpuscular hemoglobin (MCH) determinationOrdered By: Safia Ruelas on 11-26-2024 MCH (RBC) [Entitic mass] 29.3 pg 27.0-32.0 [facility] Mean corpuscular hemoglobin concentration (MCHC) determinationOrdered By: Safia Ruelas on 11-26-2024 MCHC (RBC) [Mass/Vol] 31.9 g/dL Low 32-36 [facility] Mean platelet volume determi nationOrdered By: Safia Ruelas on 11-26-2024 Platelet mean volume (Bld) [Entitic vol] 11.5 fL 6.2-12.0 [facility] Monocyte percentageOrdered B y: Safia Ruelas on 11-26-2024 Monocytes/100 WBC (Bld) 7.7 % 0-10 [facility] Neutrophil percentageOrdered By: Safia Griderbonikayla on 11-26-2024 Neutrophils/100 WBC (Bld) 52.1 % 47-70 [facility] Nucleated red blood cell per centageOrdered By: Safia Griderbonikayla on 11-26-2024 Nucleated RBC/100 WBC (Bld) [Ratio] 0 % 0-5 [facility] Platelet countOrdered By: Balbir randallskye Ruelas on 11-26-2024 Platelets (Bld) [#/Vol] 283 10*3/uL 150-450 [facility] Potassium measurement (mass/ volume)Ordered By: Safia Ruelas on 11-26-2024 Potassium (Unsp spec) [Mass/Vol] 3.8 mmol/L 3.3-5.1 [facility] RBC Auto (Bld) [#/Vol]Ordere d By: Leonidesdesireeskye Ruelas on 11-26-2024 RBC (Bld) [#/Vol] 4.64 10*6/uL 4.2-5.4 [facility] Serum creatinine measurement (mass/volume)Ordered By: Safia Ruelas on 11-26-2024 Creatinine [Mass/Vol] 0.92 mg/dL 0.70-1.20 [facility] Serum glucose measurement (m ass/volume)Ordered By: Safia Ruelas 11-26-2024 Glucose [Mass/Vol] 97 mg/dL 70-99 [facility] Serum or plasma calcium dayna urement (mass/volume)Ordered By: Safia Ruelas on 11-26-2024 Calcium [Mass/Vol] 10.0 mg/dL 7.6-11.0 [facility] Serum or plasma urea nitroge n measurement (mass/volume)Ordered By: Safia Ruelas on 11-26-2024 Urea nitrogen [Mass/Vol] 22 mg/dL High 4-19 [facility] Sodium levelOrdered By: Leonides jiménezradha Jessenia on 11-26-2024 Sodium [Moles/Vol] 140 mmol/L 133-145 [facility] White blood cell (WBC) count Ordered By: Safia Ruelas on 11-26-2024 WBC (Bld) [#/Vol] 8.1 10*3/uL 4.4-11.0 [facility] Clostridium difficile detect ion by polymerase chain reactionOrdered By: Safia Ruelas on 11-25-2024 C. difficile DNA CHUCKY+probe Ql (Unsp spec) [facility] Absolute lymphocyte countOrd ered By: Safia Ruelas on 11-19-2024 Lymphocytes Auto (Unsp spec) [#/Vol] 2.71 10*3/uL 0.83-4.51 [facility] Absolute neutrophil countOrd ered By: Safia Ruelas on 11-19-2024 Neutrophils (Bld) [#/Vol] 5.2 10*3/uL 2.0-7.7 [facility] Anion gap in Serum or Plasma Ordered By: Safia Ruelas on 11-19-2024 Anion gap [Moles/Vol] 12 mmol/L 5-15 [facility] Automated lymphocyte count a s percentage of total leukocytesOrdered By: Safia Ruelas on 11-19-2024 Lymphocytes/100 WBC Auto (Unsp spec) 30.4 % 19-41 [facility] BUN/creatinine ratioOrdered By: Safia Ruelas on 11-19-2024 Urea nitrogen/Creatinine [Mass ratio] 25.0 mg/mg High 10-20 [facility] Basophil percentageOrdered B y: Safia Ruelas on 11-19-2024 Basophils/100 WBC (Bld) 0.6 % 0-1 [facility] Carbon dioxide, total [Moles /volume] in Central venous bloodOrdered By: Safia Ruelas on 11-19-2024 CO2 [Moles/Vol] 25.5 mmol/L 21.0-32.0 [facility] Chloride assayOrdered By: Balbir Ruelas on 11-19-2024 Chloride [Moles/Vol] 101 mmol/L 98-108 [facility] Eosinophil percentageOrdered By: Safia Ruelas on 11-19-2024 Eosinophils/100 WBC (Bld) 2.1 % 0-5 [facility] Erythrocyte distribution wid th ratioOrdered By: Safia Ruelas on 11-19-2024 Erythrocyte distribution width (RBC) [Ratio] 13.9 % 11.6-14.6 [facility] Erythrocyte distribution wid th standard deviationOrdered By: Safia Ruelas on 11-19-2024 Erythrocyte distribution width (RBC) [Ratio] 46.6 fl High 35.1-43.9 [facility] Glomerular filtration rate ( GFR) estimation/1.73 sq m using serum, plasma, or whole bOrdered By: Safia Ruelas on 11-19-2024 GFR/1.73 sq M.predicted among non-blacks MDRD (S/P/Bld) [Vol rate/Area] 66 mL/min/{1.73_m2} >60 [facility] Comment on above: mL/min/1.73m2 CKD-EP I Creatinine Equation (2020) Hematocrit Auto (Bld) [Volum e fraction]Ordered By: Safia Ruelas on 11-19-2024 Hematocrit (Bld) [Volume fraction] 39.2 % 37-47 [facility] Hemoglobin measurementOrdere d By: Safia Ruelas on 11-19-2024 Hemoglobin (Bld) [Mass/Vol] 12.7 g/dL 12.0-15.0 [facility] Immature granulocytes/100 WB C Auto (Bld)Ordered By: Safia Ruelas on 11-19-2024 Immature granulocytes/100 WBC (Bld) 0.300 % 0.0-0.9 [facility] Comment on above: IG% - Immature Granu locytes (promyelocytes, myelocytes and metamyelocytes) > 1% indicates that a LEFT SHIFT is Present. MCV (mean corpuscular volume ) determinationOrdered By: Safia Ruelas on 11-19-2024 MCV (RBC) [Entitic vol] 91.4 fL 81-99 [facility] Mean corpuscular hemoglobin (MCH) determinationOrdered By: Safia Ruelas 11-19-2024 MCH (RBC) [Entitic mass] 29.6 pg 27.0-32.0 [facility] Mean corpuscular hemoglobin concentration (MCHC) determinationOrdered By: Safia Ruelas on 11-19-2024 MCHC (RBC) [Mass/Vol] 32.4 g/dL 32-36 [facility] Mean platelet volume determi nationOrdered By: Safia Ruelas on 11-19-2024 Platelet mean volume (Bld) [Entitic vol] 11.5 fL 6.2-12.0 [facility] Monocyte percentageOrdered B y: Safia Ruelas on 11-19-2024 Monocytes/100 WBC (Bld) 7.8 % 0-10 [facility] Neutrophil percentageOrdered By: Safia Ruelas on 11-19-2024 Neutrophils/100 WBC (Bld) 58.8 % 47-70 [facility] Nucleated red blood cell per centageOrdered By: Safia Ruelas on 11-19-2024 Nucleated RBC/100 WBC (Bld) [Ratio] 0 % 0-5 [facility] Platelet countOrdered By: Balbir Ruelas on 11-19-2024 Platelets (Bld) [#/Vol] 300 10*3/uL 150-450 [facility] Potassium measurement (mass/ volume)Ordered By: Safia Ruelas on 11-19-2024 Potassium (Unsp spec) [Mass/Vol] 3.8 mmol/L 3.3-5.1 [facility] RBC Auto (Bld) [#/Vol]Ordere d By: Safia Ruelas on 11-19-2024 RBC (Bld) [#/Vol] 4.29 10*6/uL 4.2-5.4 [facility] Serum creatinine measurement (mass/volume)Ordered By: Safia Ruelas on 11-19-2024 Creatinine [Mass/Vol] 0.88 mg/dL 0.70-1.20 [facility] Serum glucose measurement (m ass/volume)Ordered By: Safia Ruelas on 11-19-2024 Glucose [Mass/Vol] 136 mg/dL High 70-99 [facility] Serum or plasma calcium dayna urement (mass/volume)Ordered By: Safia Ruelas on 11-19-2024 Calcium [Mass/Vol] 9.6 mg/dL 7.6-11.0 [facility] Serum or plasma urea nitroge n measurement (mass/volume)Ordered By: Balbirjean mariedesireeskye Enricokayla on 11-19-2024 Urea nitrogen [Mass/Vol] 22 mg/dL High 4-19 [facility] Sodium levelOrdered By: Leonides chou Cheobonikayla on 11-19-2024 Sodium [Moles/Vol] 139 mmol/L 133-145 [facility] White blood cell (WBC) count Ordered By: Balbirjean mariedesireeskye Griderbonikayla on 11-19-2024 WBC (Bld) [#/Vol] 8.9 10*3/uL 4.4-11.0 [facility] Absolute lymphocyte countOrd ered By: Safia Cheoquyen on 11-12-2024 Lymphocytes Auto (Unsp spec) [#/Vol] 2.49 10*3/uL 0.83-4.51 [facility] Absolute neutrophil countOrd ered By: Safia Ruelas on 11-12-2024 Neutrophils (Bld) [#/Vol] 4.2 10*3/uL 2.0-7.7 [facility] Anion gap in Serum or Plasma Ordered By: Balbirjean mariejosé antonio Cheobonikayla on 11-12-2024 Anion gap [Moles/Vol] 12 mmol/L 5-15 [facility] Automated lymphocyte count a s percentage of total leukocytesOrdered By: Safia Griderbonikayla on 11-12-2024 Lymphocytes/100 WBC Auto (Unsp spec) 31.9 % 19-41 [facility] BUN/creatinine ratioOrdered By: Bandarskye Griderbonikayla on 11-12-2024 Urea nitrogen/Creatinine [Mass ratio] 28.1 mg/mg High 10-20 [facility] Basophil percentageOrdered B y: Band[place]kye Griderbonikayla on 11-12-2024 Basophils/100 WBC (Bld) 0.6 % 0-1 [facility] Carbon dioxide, total [Moles /volume] in Central venous bloodOrdered By: Balbirjean mariedesireeskye Griderbonikayla on 11-12-2024 CO2 [Moles/Vol] 25.1 mmol/L 21.0-32.0 [facility] Chloride assayOrdered By: Balbir Ruelas on 11-12-2024 Chloride [Moles/Vol] 102 mmol/L 98-108 [facility] Eosinophil percentageOrdered By: Safia Ruelas on 11-12-2024 Eosinophils/100 WBC (Bld) 2.8 % 0-5 [facility] Erythrocyte distribution wid th ratioOrdered By: Safia Ruelas on 11-12-2024 Erythrocyte distribution width (RBC) [Ratio] 13.8 % 11.6-14.6 [facility] Erythrocyte distribution wid th standard deviationOrdered By: Safia Ruelas on 11-12-2024 Erythrocyte distribution width (RBC) [Ratio] 46.7 fl High 35.1-43.9 [facility] Glomerular filtration rate ( GFR) estimation/1.73 sq m using serum, plasma, or whole bOrdered By: Safia Ruelas on 11-12-2024 GFR/1.73 sq M.predicted among non-blacks MDRD (S/P/Bld) [Vol rate/Area] 70 mL/min/{1.73_m2} >60 [facility] Comment on above: mL/min/1.73m2 CKD-EP I Creatinine Equation (2020) Hematocrit Auto (Bld) [Volum e fraction]Ordered By: Safia Ruelas on 11-12-2024 Hematocrit (Bld) [Volume fraction] 40.6 % 37-47 [facility] Hemoglobin measurementOrdere d By: Safia Ruelas on 11-12-2024 Hemoglobin (Bld) [Mass/Vol] 13.2 g/dL 12.0-15.0 [facility] Immature granulocytes/100 WB C Auto (Bld)Ordered By: Safia Ruelas on 11-12-2024 Immature granulocytes/100 WBC (Bld) 0.400 % 0.0-0.9 [facility] Comment on above: IG% - Immature Granu locytes (promyelocytes, myelocytes and metamyelocytes) > 1% indicates that a LEFT SHIFT is Present. MCV (mean corpuscular volume ) determinationOrdered By: Safia Ruelas on 11-12-2024 MCV (RBC) [Entitic vol] 92.1 fL 81-99 [facility] Mean corpuscular hemoglobin (MCH) determinationOrdered By: Safia Ruelas on 11-12-2024 MCH (RBC) [Entitic mass] 29.9 pg 27.0-32.0 [facility] Mean corpuscular hemoglobin concentration (MCHC) determinationOrdered By: Safia Ruelas on 11-12-2024 MCHC (RBC) [Mass/Vol] 32.5 g/dL 32-36 [facility] Mean platelet volume determi nationOrdered By: Safia Ruelas on 11-12-2024 Platelet mean volume (Bld) [Entitic vol] 11.7 fL 6.2-12.0 [facility] Monocyte percentageOrdered B y: Safia Ruelas on 11-12-2024 Monocytes/100 WBC (Bld) 10.0 % 0-10 [facility] Neutrophil percentageOrdered By: Safia Ruelas on 11-12-2024 Neutrophils/100 WBC (Bld) 54.3 % 47-70 [facility] Nucleated red blood cell per centageOrdered By: Safia Ruelas on 11-12-2024 Nucleated RBC/100 WBC (Bld) [Ratio] 0 % 0-5 [facility] Platelet countOrdered By: Balbir jean mariejosé antonio Ruelas on 11-12-2024 Platelets (Bld) [#/Vol] 304 10*3/uL 150-450 [facility] Potassium measurement (mass/ volume)Ordered By: Safia Ruelas on 11-12-2024 Potassium (Unsp spec) [Mass/Vol] 3.9 mmol/L 3.3-5.1 [facility] RBC Auto (Bld) [#/Vol]Ordere d By: Safia Ruelas on 11-12-2024 RBC (Bld) [#/Vol] 4.41 10*6/uL 4.2-5.4 [facility] Serum creatinine measurement (mass/volume)Ordered By: Safia Ruelas on 11-12-2024 Creatinine [Mass/Vol] 0.84 mg/dL 0.70-1.20 [facility] Serum glucose measurement (m ass/volume)Ordered By: Safia Ruelas on 11-12-2024 Glucose [Mass/Vol] 112 mg/dL High 70-99 [facility] Serum or plasma calcium dayna urement (mass/volume)Ordered By: Safia Ruelas on 11-12-2024 Calcium [Mass/Vol] 9.7 mg/dL 7.6-11.0 [facility] Serum or plasma urea nitroge n measurement (mass/volume)Ordered By: Safia Ruelas on 11-12-2024 Urea nitrogen [Mass/Vol] 24 mg/dL High 4-19 [facility] Sodium levelOrdered By: Leonides josé antonio Jessenia on 11-12-2024 Sodium [Moles/Vol] 139 mmol/L 133-145 [facility] White blood cell (WBC) count Ordered By: Safia Ruelas on 11-12-2024 WBC (Bld) [#/Vol] 7.8 10*3/uL 4.4-11.0 [facility] Absolute lymphocyte countOrd ered By: Safia Ruelas on 11-05-2024 Lymphocytes Auto (Unsp spec) [#/Vol] 2.91 10*3/uL 0.83-4.51 [facility] Absolute neutrophil countOrd ered By: Safia Ruelas on 11-05-2024 Neutrophils (Bld) [#/Vol] 4.6 10*3/uL 2.0-7.7 [facility] Anion gap in Serum or Plasma Ordered By: Safia Ruelas on 11-05-2024 Anion gap [Moles/Vol] 13 mmol/L 5-15 [facility] Automated lymphocyte count a s percentage of total leukocytesOrdered By: Safia Ruelas on 11-05-2024 Lymphocytes/100 WBC Auto (Unsp spec) 33.7 % 19-41 [facility] BUN/creatinine ratioOrdered By: Safia Ruelas on 11-05-2024 Urea nitrogen/Creatinine [Mass ratio] 23.3 mg/mg High 10-20 [facility] Basophil percentageOrdered B y: Safia Ruelas on 11-05-2024 Basophils/100 WBC (Bld) 0.9 % 0-1 [facility] Carbon dioxide, total [Moles /volume] in Central venous bloodOrdered By: Safia Ruelas on 11-05-2024 CO2 [Moles/Vol] 24.2 mmol/L 21.0-32.0 [facility] Chloride assayOrdered By: Balbir Ruelas on 11-05-2024 Chloride [Moles/Vol] 102 mmol/L 98-108 [facility] Eosinophil percentageOrdered By: Safia Ruelas on 11-05-2024 Eosinophils/100 WBC (Bld) 2.7 % 0-5 [facility] Erythrocyte distribution wid th ratioOrdered By: sherry Ruelas on 11-05-2024 Erythrocyte distribution width (RBC) [Ratio] 13.9 % 11.6-14.6 [facility] Erythrocyte distribution wid th standard deviationOrdered By: Leonidesfittstownskye Ruelas on 11-05-2024 Erythrocyte distribution width (RBC) [Ratio] 47.1 fl High 35.1-43.9 [facility] Glomerular filtration rate ( GFR) estimation/1.73 sq m using serum, plasma, or whole bOrdered By: Safia Ruelas on 11-05-2024 GFR/1.73 sq M.predicted among non-blacks MDRD (S/P/Bld) [Vol rate/Area] 62 mL/min/{1.73_m2} >60 [facility] Comment on above: mL/min/1.73m2 CKD-EP I Creatinine Equation (2020) Hematocrit Auto (Bld) [Volum e fraction]Ordered By: Safia Ruelas on 11-05-2024 Hematocrit (Bld) [Volume fraction] 40.7 % 37-47 [facility] Hemoglobin measurementOrdere d By: Safia Ruelas on 11-05-2024 Hemoglobin (Bld) [Mass/Vol] 12.9 g/dL 12.0-15.0 [facility] Immature granulocytes/100 WB C Auto (Bld)Ordered By: Safia Ruelas on 11-05-2024 Immature granulocytes/100 WBC (Bld) 0.500 % 0.0-0.9 [facility] Comment on above: IG% - Immature Granu locytes (promyelocytes, myelocytes and metamyelocytes) > 1% indicates that a LEFT SHIFT is Present. MCV (mean corpuscular volume ) determinationOrdered By: Safia Ruelas on 11-05-2024 MCV (RBC) [Entitic vol] 92.9 fL 81-99 [facility] Mean corpuscular hemoglobin (MCH) determinationOrdered By: Safia Ruelas on 11-05-2024 MCH (RBC) [Entitic mass] 29.5 pg 27.0-32.0 [facility] Mean corpuscular hemoglobin concentration (MCHC) determinationOrdered By: Safia Ruelas on 11-05-2024 MCHC (RBC) [Mass/Vol] 31.7 g/dL Low 32-36 [facility] Mean platelet volume determi nationOrdered By: Safia Ruelas on 11-05-2024 Platelet mean volume (Bld) [Entitic vol] 11.2 fL 6.2-12.0 [facility] Monocyte percentageOrdered B y: Safia Ruelas on 11-05-2024 Monocytes/100 WBC (Bld) 8.6 % 0-10 [facility] Neutrophil percentageOrdered By: Safia Ruelas on 11-05-2024 Neutrophils/100 WBC (Bld) 53.6 % 47-70 [facility] Nucleated red blood cell per centageOrdered By: Safia Ruelas on 11-05-2024 Nucleated RBC/100 WBC (Bld) [Ratio] 0 % 0-5 [facility] Platelet countOrdered By: Balbir Ruelas on 11-05-2024 Platelets (Bld) [#/Vol] 318 10*3/uL 150-450 [facility] Potassium measurement (mass/ volume)Ordered By: Safia Ruelas on 11-05-2024 Potassium (Unsp spec) [Mass/Vol] 4.0 mmol/L 3.3-5.1 [facility] RBC Auto (Bld) [#/Vol]Ordere d By: Safia Ruelas on 11-05-2024 RBC (Bld) [#/Vol] 4.38 10*6/uL 4.2-5.4 [facility] Serum creatinine measurement (mass/volume)Ordered By: Safia Ruelas on 11-05-2024 Creatinine [Mass/Vol] 0.93 mg/dL 0.70-1.20 [facility] Serum glucose measurement (m ass/volume)Ordered By: Safia Ruelas on 11-05-2024 Glucose [Mass/Vol] 70 mg/dL 70-99 [facility] Serum or plasma calcium dayna urement (mass/volume)Ordered By: Safia Ruelas on 11-05-2024 Calcium [Mass/Vol] 9.5 mg/dL 7.6-11.0 [facility] Serum or plasma urea nitroge n measurement (mass/volume)Ordered By: Safia Ruelas on 11-05-2024 Urea nitrogen [Mass/Vol] 22 mg/dL High 4-19 [facility] Sodium levelOrdered By: Leonides josé antonio Cheobonikayla on 11-05-2024 Sodium [Moles/Vol] 139 mmol/L 133-145 [facility] White blood cell (WBC) count Ordered By: Safia Ruelas on 11-05-2024 WBC (Bld) [#/Vol] 8.6 10*3/uL 4.4-11.0 [facility] Absolute lymphocyte countOrd ered By: Safia Ruelas on 10-29-2024 Lymphocytes Auto (Unsp spec) [#/Vol] 2.69 10*3/uL 0.83-4.51 [facility] Absolute neutrophil countOrd ered By: Safia Ruelas on 10-29-2024 Neutrophils (Bld) [#/Vol] 4.5 10*3/uL 2.0-7.7 [facility] Anion gap in Serum or Plasma Ordered By: Safia Ruelas on 10-29-2024 Anion gap [Moles/Vol] 11 mmol/L 5-15 [facility] Automated lymphocyte count a s percentage of total leukocytesOrdered By: Safia Ruelas on 10-29-2024 Lymphocytes/100 WBC Auto (Unsp spec) 32.6 % 19-41 [facility] BUN/creatinine ratioOrdered By: Bandarskye Griderbonikayla on 10-29-2024 Urea nitrogen/Creatinine [Mass ratio] 25.2 mg/mg High 10-20 [facility] Basophil percentageOrdered B y: Safia Cheoquyen on 10-29-2024 Basophils/100 WBC (Bld) 0.7 % 0-1 [facility] Carbon dioxide, total [Moles /volume] in Central venous bloodOrdered By: [facility] Griderbonikayla on 10-29-2024 CO2 [Moles/Vol] 25.7 mmol/L 21.0-32.0 [facility] Chloride assayOrdered By: Balbir randallskye Griderbonikayla on 10-29-2024 Chloride [Moles/Vol] 102 mmol/L 98-108 [facility] Eosinophil percentageOrdered By: jean mariefitt[place]skye Cheobonikayla on 10-29-2024 Eosinophils/100 WBC (Bld) 2.1 % 0-5 [facility] Erythrocyte distribution wid th ratioOrdered By: [facility] Cheobonikayla on 10-29-2024 Erythrocyte distribution width (RBC) [Ratio] 13.6 % 11.6-14.6 [facility] Erythrocyte distribution wid th standard deviationOrdered By: [facility] Cheobonikayla on 10-29-2024 Erythrocyte distribution width (RBC) [Ratio] 46.6 fl High 35.1-43.9 [facility] Glomerular filtration rate ( GFR) estimation/1.73 sq m using serum, plasma, or whole bOrdered By: Balbirjean mariejosé antonio Cheobonikayla on 10-29-2024 GFR/1.73 sq M.predicted among non-blacks MDRD (S/P/Bld) [Vol rate/Area] 59 mL/min/{1.73_m2} Low >60 [facility] Comment on above: mL/min/1.73m2 CKD-EP I Creatinine Equation (2020) Hematocrit Auto (Bld) [Volum e fraction]Ordered By: Balbirjean mariefitt[place]skye Ruelas on 10-29-2024 Hematocrit (Bld) [Volume fraction] 37.8 % 37-47 [facility] Hemoglobin measurementOrdere d By: Safia Ruelas on 10-29-2024 Hemoglobin (Bld) [Mass/Vol] 12.2 g/dL 12.0-15.0 [facility] Immature granulocytes/100 WB C Auto (Bld)Ordered By: Safia Ruelas on 10-29-2024 Immature granulocytes/100 WBC (Bld) 0.400 % 0.0-0.9 [facility] Comment on above: IG% - Immature Granu locytes (promyelocytes, myelocytes and metamyelocytes) > 1% indicates that a LEFT SHIFT is Present. MCV (mean corpuscular volume ) determinationOrdered By: Safia Ruelas on 10-29-2024 MCV (RBC) [Entitic vol] 92.2 fL 81-99 [facility] Mean corpuscular hemoglobin (MCH) determinationOrdered By: jean mariefittstownskye Ruelas on 10-29-2024 MCH (RBC) [Entitic mass] 29.8 pg 27.0-32.0 [facility] Mean corpuscular hemoglobin concentration (MCHC) determinationOrdered By: [facility] Ruel[facility] on 10-29-2024 MCHC (RBC) [Mass/Vol] 32.3 g/dL 32-36 [facility] Mean platelet volume determi nationOrdered By: Safia Ruelas on 10-29-2024 Platelet mean volume (Bld) [Entitic vol] 11.1 fL 6.2-12.0 [facility] Monocyte percentageOrdered B y: Safia Ruelas on 10-29-2024 Monocytes/100 WBC (Bld) 9.9 % 0-10 [facility] Neutrophil percentageOrdered By: sherry Ruelas on 10-29-2024 Neutrophils/100 WBC (Bld) 54.3 % 47-70 [facility] Nucleated red blood cell per centageOrdered By: sherry Ruelas on 10-29-2024 Nucleated RBC/100 WBC (Bld) [Ratio] 0 % 0-5 [facility] Platelet countOrdered By: Balbir Ruelas on 10-29-2024 Platelets (Bld) [#/Vol] 283 10*3/uL 150-450 [facility] Potassium measurement (mass/ volume)Ordered By: Safia Ruelas on 10-29-2024 Potassium (Unsp spec) [Mass/Vol] 3.9 mmol/L 3.3-5.1 [facility] RBC Auto (Bld) [#/Vol]Ordere d By: Safia Ruelas on 10-29-2024 RBC (Bld) [#/Vol] 4.10 10*6/uL Low 4.2-5.4 [facility] Serum creatinine measurement (mass/volume)Ordered By: Safia Ruelas on 10-29-2024 Creatinine [Mass/Vol] 0.97 mg/dL 0.70-1.20 [facility] Serum glucose measurement (m ass/volume)Ordered By: Safia Ruelas on 10-29-2024 Glucose [Mass/Vol] 74 mg/dL 70-99 [facility] Serum or plasma calcium dayna urement (mass/volume)Ordered By: Safia Ruelas on 10-29-2024 Calcium [Mass/Vol] 9.5 mg/dL 7.6-11.0 [facility] Serum or plasma urea nitroge n measurement (mass/volume)Ordered By: Safia Ruelas on 10-29-2024 Urea nitrogen [Mass/Vol] 24 mg/dL High 4-19 [facility] Sodium levelOrdered By: Leonides Ruelas on 10-29-2024 Sodium [Moles/Vol] 138 mmol/L 133-145 [facility] White blood cell (WBC) count Ordered By: Safia Ruelas on 10-29-2024 WBC (Bld) [#/Vol] 8.3 10*3/uL 4.4-11.0 [facility] Bilirubin Test strip Ql (U)O rdered By: Safia Ruelas on 10-23-2024 Bilirubin Ql (U) Negative Negative [facility] Ketones Test strip Ql (U)Ord ered By: Safia Ruelas on 10-23-2024 Ketones Ql (U) Negative Negative [facility] Nitrite Test strip Ql (U)Ord ered By: Safia Ruelas on 10-23-2024 Nitrite Ql (U) Positive High Negative [facility] Protein Test strip Ql (U)Ord ered By: Safia Ruelas on 10-23-2024 Protein Ql (U) 15 mg/dl High Negative [facility] Urine clarityOrdered By: Augusto Ruelas on 10-23-2024 Clarity (U) Clear Clear [facility] Urine color determinationOrd ered By: Safia Ruelas on 10-23-2024 Color (U) Yellow Yellow [facility] Urine cultureOrdered By: Augusto Ruelas on 10-23-2024 Bacteria identified Cx Nom (U) Klebsiella pneumoniae sp pneum Abnormal [facility] Urine glucose detectionOrder ed By: Safia Ruelas on 10-23-2024 Glucose Ql (U) Normal mg/dl Normal [facility] Urine leukocyte esterase det ection by dipstickOrdered By: Safia Ruelas on 10-23-2024 Leukocyte esterase Test strip Ql (U) 500 /ul High Negative [facility] Urine pHOrdered By: Mazin Ruelas on 10-23-2024 pH (U) 6.0 [pH] 5.0 - 8.0 [facility] Urine specific gravity measu rementOrdered By: Safia Ruelas on 10-23-2024 Specific gravity (U) [Rel density] 1.010 1.002-1.030 [facility] Urine urobilinogen measureme ntOrdered By: Safia Ruelas on 10-23-2024 Urobilinogen Ql (U) Normal mg/dl Normal [facility] Absolute lymphocyte countOrd ered By: Safia Ruelas on 10-22-2024 Lymphocytes Auto (Unsp spec) [#/Vol] 3.07 10*3/uL 0.83-4.51 [facility] Absolute neutrophil countOrd ered By: Safia Ruelas on 10-22-2024 Neutrophils (Bld) [#/Vol] 4.6 10*3/uL 2.0-7.7 [facility] Anion gap in Serum or Plasma Ordered By: Safia Ruelas on 10-22-2024 Anion gap [Moles/Vol] 15 mmol/L 5-15 [facility] Automated lymphocyte count a s percentage of total leukocytesOrdered By: Safia Ruelas on 10-22-2024 Lymphocytes/100 WBC Auto (Unsp spec) 34.8 % 19-41 [facility] BUN/creatinine ratioOrdered By: Safia Ruelas on 10-22-2024 Urea nitrogen/Creatinine [Mass ratio] 28.6 mg/mg High 10-20 [facility] Basophil percentageOrdered B y: Leonidesdesireeskye Ruelas on 10-22-2024 Basophils/100 WBC (Bld) 0.9 % 0-1 [facility] Carbon dioxide, total [Moles /volume] in Central venous bloodOrdered By: Safia Ruelas on 10-22-2024 CO2 [Moles/Vol] 23.1 mmol/L 21.0-32.0 [facility] Chloride assayOrdered By: Balbir jean mariejosé antonio Ruelas on 10-22-2024 Chloride [Moles/Vol] 100 mmol/L 98-108 [facility] Eosinophil percentageOrdered By: jean marief[place]skye Ruelas on 10-22-2024 Eosinophils/100 WBC (Bld) 3.1 % 0-5 [facility] Erythrocyte distribution wid th ratioOrdered By: Safia Ruelas on 10-22-2024 Erythrocyte distribution width (RBC) [Ratio] 13.6 % 11.6-14.6 [facility] Erythrocyte distribution wid th standard deviationOrdered By: Safia Ruelas on 10-22-2024 Erythrocyte distribution width (RBC) [Ratio] 45.9 fl High 35.1-43.9 [facility] Glomerular filtration rate ( GFR) estimation/1.73 sq m using serum, plasma, or whole bOrdered By: Safia Ruelas on 10-22-2024 GFR/1.73 sq M.predicted among non-blacks MDRD (S/P/Bld) [Vol rate/Area] 60 mL/min/{1.73_m2} >60 [facility] Comment on above: mL/min/1.73m2 CKD-EP I Creatinine Equation (2020) Hematocrit Auto (Bld) [Volum e fraction]Ordered By: Safia Ruelas on 10-22-2024 Hematocrit (Bld) [Volume fraction] 40.7 % 37-47 [facility] Hemoglobin measurementOrdere d By: Safia Reulas on 10-22-2024 Hemoglobin (Bld) [Mass/Vol] 13.1 g/dL 12.0-15.0 [facility] Immature granulocytes/100 WB C Auto (Bld)Ordered By: Safia Ruelas on 10-22-2024 Immature granulocytes/100 WBC (Bld) 1.400 % High 0.0-0.9 [facility] Comment on above: IG% - Immature Granu locytes (promyelocytes, myelocytes and metamyelocytes) > 1% indicates that a LEFT SHIFT is Present. MCV (mean corpuscular volume ) determinationOrdered By: Safia Ruelas on 10-22-2024 MCV (RBC) [Entitic vol] 91.9 fL 81-99 [facility] Mean corpuscular hemoglobin (MCH) determinationOrdered By: sherry Ruelas on 10-22-2024 MCH (RBC) [Entitic mass] 29.6 pg 27.0-32.0 [facility] Mean corpuscular hemoglobin concentration (MCHC) determinationOrdered By: Safia Ruelas on 10-22-2024 MCHC (RBC) [Mass/Vol] 32.2 g/dL 32-36 [facility] Mean platelet volume determi nationOrdered By: Safia Ruelas on 10-22-2024 Platelet mean volume (Bld) [Entitic vol] 11.2 fL 6.2-12.0 [facility] Monocyte percentageOrdered B y: Safia Ruelas on 10-22-2024 Monocytes/100 WBC (Bld) 7.7 % 0-10 [facility] Neutrophil percentageOrdered By: Safia Ruelas on 10-22-2024 Neutrophils/100 WBC (Bld) 52.1 % 47-70 [facility] Nucleated red blood cell per centageOrdered By: Safia Ruelas on 10-22-2024 Nucleated RBC/100 WBC (Bld) [Ratio] 0 % 0-5 [facility] Platelet countOrdered By: Balbir sherry Cheoquyen on 10-22-2024 Platelets (Bld) [#/Vol] 334 10*3/uL 150-450 [facility] Potassium measurement (mass/ volume)Ordered By: Balbirjean mariejosé antonio Cheobonikayla on 10-22-2024 Potassium (Unsp spec) [Mass/Vol] 3.7 mmol/L 3.3-5.1 [facility] RBC Auto (Bld) [#/Vol]Ordere d By: Safia Cheoquyen on 10-22-2024 RBC (Bld) [#/Vol] 4.43 10*6/uL 4.2-5.4 [facility] Serum creatinine measurement (mass/volume)Ordered By: Balbirjean mariedesireeskye Griderbonikayla on 10-22-2024 Creatinine [Mass/Vol] 0.96 mg/dL 0.70-1.20 [facility] Serum glucose measurement (m ass/volume)Ordered By: Leonidesdesireeskye Griderbonikayla on 10-22-2024 Glucose [Mass/Vol] 106 mg/dL High 70-99 [facility] Serum or plasma calcium dayna urement (mass/volume)Ordered By: Balbirjean mariejosé antonio Cheoquyen on 10-22-2024 Calcium [Mass/Vol] 9.4 mg/dL 7.6-11.0 [facility] Serum or plasma urea nitroge n measurement (mass/volume)Ordered By: Safia Griderbonikayla on 10-22-2024 Urea nitrogen [Mass/Vol] 28 mg/dL High 4-19 [facility] Sodium levelOrdered By: Leonides chou Cheobonikayla on 10-22-2024 Sodium [Moles/Vol] 138 mmol/L 133-145 [facility] TSH DL <= 0.005 mIU/L QnOrde red By: Balbirjean mariejosé antonio Cheoquyen on 10-22-2024 TSH Qn 4.630 uIU/mL High 0.300-4.200 [facility] White blood cell (WBC) count Ordered By: Leonidesjosé antonio Cheobonikayla on 10-22-2024 WBC (Bld) [#/Vol] 8.8 10*3/uL 4.4-11.0 [facility] Absolute lymphocyte countOrd ered By: Safia Ruelas on 10-15-2024 Lymphocytes Auto (Unsp spec) [#/Vol] 3.04 10*3/uL 0.83-4.51 [facility] Absolute neutrophil countOrd ered By: Safia Ruelas on 10-15-2024 Neutrophils (Bld) [#/Vol] 4.3 10*3/uL 2.0-7.7 [facility] Anion gap in Serum or Plasma Ordered By: Safia Ruelas on 10-15-2024 Anion gap [Moles/Vol] 12 mmol/L 5-15 [facility] Automated lymphocyte count a s percentage of total leukocytesOrdered By: Safia Ruelas on 10-15-2024 Lymphocytes/100 WBC Auto (Unsp spec) 36.7 % 19-41 [facility] BUN/creatinine ratioOrdered By: Safia Ruelas on 10-15-2024 Urea nitrogen/Creatinine [Mass ratio] 36.5 mg/mg High 10-20 [facility] Basophil percentageOrdered B y: Safia Ruelas on 10-15-2024 Basophils/100 WBC (Bld) 0.7 % 0-1 [facility] Carbon dioxide, total [Moles /volume] in Central venous bloodOrdered By: Safia Ruelas on 10-15-2024 CO2 [Moles/Vol] 25.2 mmol/L 21.0-32.0 [facility] Chloride assayOrdered By: Balbir Ruelas on 10-15-2024 Chloride [Moles/Vol] 100 mmol/L 98-108 [facility] Eosinophil percentageOrdered By: Safia Ruelas on 10-15-2024 Eosinophils/100 WBC (Bld) 2.4 % 0-5 [facility] Erythrocyte distribution wid th ratioOrdered By: Safia Ruelas on 10-15-2024 Erythrocyte distribution width (RBC) [Ratio] 13.5 % 11.6-14.6 [facility] Erythrocyte distribution wid th standard deviationOrdered By: Safia Ruelas on 10-15-2024 Erythrocyte distribution width (RBC) [Ratio] 45.2 fl High 35.1-43.9 [facility] Glomerular filtration rate ( GFR) estimation/1.73 sq m using serum, plasma, or whole bOrdered By: Safia Ruelas on 10-15-2024 GFR/1.73 sq M.predicted among non-blacks MDRD (S/P/Bld) [Vol rate/Area] 71 mL/min/{1.73_m2} >60 [facility] Comment on above: mL/min/1.73m2 CKD-EP I Creatinine Equation (2020) Hematocrit Auto (Bld) [Volum e fraction]Ordered By: [facility] R[facility] on 10-15-2024 Hematocrit (Bld) [Volume fraction] 40.3 % 37-47 [facility] Hemoglobin measurementOrdere d By: Safia Ruelas on 10-15-2024 Hemoglobin (Bld) [Mass/Vol] 13.3 g/dL 12.0-15.0 [facility] Immature granulocytes/100 WB C Auto (Bld)Ordered By: Safia Ruelas on 10-15-2024 Immature granulocytes/100 WBC (Bld) 0.400 % 0.0-0.9 [facility] Comment on above: IG% - Immature Granu locytes (promyelocytes, myelocytes and metamyelocytes) > 1% indicates that a LEFT SHIFT is Present. MCV (mean corpuscular volume ) determinationOrdered By: Safia Ruelas on 10-15-2024 MCV (RBC) [Entitic vol] 91.0 fL 81-99 [facility] Mean corpuscular hemoglobin (MCH) determinationOrdered By: Safia Ruelas on 10-15-2024 MCH (RBC) [Entitic mass] 30.0 pg 27.0-32.0 [facility] Mean corpuscular hemoglobin concentration (MCHC) determinationOrdered By: Leonidesfitt[place]skye Ruelas on 10-15-2024 MCHC (RBC) [Mass/Vol] 33.0 g/dL 32-36 [facility] Mean platelet volume determi nationOrdered By: Safia Ruelas on 10-15-2024 Platelet mean volume (Bld) [Entitic vol] 11.9 fL 6.2-12.0 [facility] Monocyte percentageOrdered B y: Safia Ruelas on 10-15-2024 Monocytes/100 WBC (Bld) 8.2 % 0-10 [facility] Neutrophil percentageOrdered By: Safia Ruelas on 10-15-2024 Neutrophils/100 WBC (Bld) 51.6 % 47-70 [facility] Nucleated red blood cell per centageOrdered By: Safia Ruelas on 10-15-2024 Nucleated RBC/100 WBC (Bld) [Ratio] 0 % 0-5 [facility] Platelet countOrdered By: Balbir Ruelas on 10-15-2024 Platelets (Bld) [#/Vol] 221 10*3/uL 150-450 [facility] Potassium measurement (mass/ volume)Ordered By: Safia Ruelas on 10-15-2024 Potassium (Unsp spec) [Mass/Vol] 3.8 mmol/L 3.3-5.1 [facility] RBC Auto (Bld) [#/Vol]Ordere d By: Safia Ruelas on 10-15-2024 RBC (Bld) [#/Vol] 4.43 10*6/uL 4.2-5.4 [facility] Serum creatinine measurement (mass/volume)Ordered By: Safia Ruelas on 10-15-2024 Creatinine [Mass/Vol] 0.83 mg/dL 0.70-1.20 [facility] Serum glucose measurement (m ass/volume)Ordered By: Safia Ruelas on 10-15-2024 Glucose [Mass/Vol] 68 mg/dL Low 70-99 [facility] Serum or plasma calcium dayna urement (mass/volume)Ordered By: Safia Ruelas on 10-15-2024 Calcium [Mass/Vol] 9.3 mg/dL 7.6-11.0 [facility] Serum or plasma urea nitroge n measurement (mass/volume)Ordered By: Safia Ruelas on 10-15-2024 Urea nitrogen [Mass/Vol] 30 mg/dL High 4-19 [facility] Sodium levelOrdered By: Leonides Griderboinkayla on 10-15-2024 Sodium [Moles/Vol] 138 mmol/L 133-145 [facility] White blood cell (WBC) count Ordered By: Balbirjean mariejosé antonio Cheobonikayla on 10-15-2024 WBC (Bld) [#/Vol] 8.3 10*3/uL 4.4-11.0 [facility] Absolute lymphocyte countOrd ered By: Leonidesdesireeskye Griderbonikayla on 10-08-2024 Lymphocytes Auto (Unsp spec) [#/Vol] 2.52 10*3/uL 0.83-4.51 [facility] Absolute neutrophil countOrd ered By: Balbirjean mariejosé antonio Cheoquyen on 10-08-2024 Neutrophils (Bld) [#/Vol] 4.9 10*3/uL 2.0-7.7 [facility] Anion gap in Serum or Plasma Ordered By: Leonidesjosé antonio Cheobonikayla on 10-08-2024 Anion gap [Moles/Vol] 14 mmol/L 5-15 [facility] Automated lymphocyte count a s percentage of total leukocytesOrdered By: Leonidesdesireeskye Griderbonikayla on 10-08-2024 Lymphocytes/100 WBC Auto (Unsp spec) 29.4 % 19-41 [facility] BUN/creatinine ratioOrdered By: Leonidesdesireeskye Griderbonikayla on 10-08-2024 Urea nitrogen/Creatinine [Mass ratio] 34.1 mg/mg High 10-20 [facility] Basophil percentageOrdered B y: Leonidesdesireeskye Griderbonikayla on 10-08-2024 Basophils/100 WBC (Bld) 0.7 % 0-1 [facility] Carbon dioxide, total [Moles /volume] in Central venous bloodOrdered By: Safia Griderbonikayla on 10-08-2024 CO2 [Moles/Vol] 24.0 mmol/L 21.0-32.0 [facility] Chloride assayOrdered By: Balbir jean mariejosé antonio Griderbonikayla on 10-08-2024 Chloride [Moles/Vol] 100 mmol/L 98-108 [facility] Eosinophil percentageOrdered By: Safia Griderbonikayla on 10-08-2024 Eosinophils/100 WBC (Bld) 2.6 % 0-5 [facility] Erythrocyte distribution wid th ratioOrdered By: Safia Ruelas on 10-08-2024 Erythrocyte distribution width (RBC) [Ratio] 13.2 % 11.6-14.6 [facility] Erythrocyte distribution wid th standard deviationOrdered By: Safia Ruelas on 10-08-2024 Erythrocyte distribution width (RBC) [Ratio] 45.3 fl High 35.1-43.9 [facility] Glomerular filtration rate ( GFR) estimation/1.73 sq m using serum, plasma, or whole bOrdered By: Safia Ruelas on 10-08-2024 GFR/1.73 sq M.predicted among non-blacks MDRD (S/P/Bld) [Vol rate/Area] 65 mL/min/{1.73_m2} >60 [facility] Comment on above: mL/min/1.73m2 CKD-EP I Creatinine Equation (2020) Hematocrit Auto (Bld) [Volum e fraction]Ordered By: Safia Ruelas on 10-08-2024 Hematocrit (Bld) [Volume fraction] 41.7 % 37-47 [facility] Hemoglobin measurementOrdere d By: Safia Ruelas on 10-08-2024 Hemoglobin (Bld) [Mass/Vol] 13.3 g/dL 12.0-15.0 [facility] Immature granulocytes/100 WB C Auto (Bld)Ordered By: Safia Ruelas 10-08-2024 Immature granulocytes/100 WBC (Bld) 0.400 % 0.0-0.9 [facility] Comment on above: IG% - Immature Granu locytes (promyelocytes, myelocytes and metamyelocytes) > 1% indicates that a LEFT SHIFT is Present. MCV (mean corpuscular volume ) determinationOrdered By: Safia Ruelas on 10-08-2024 MCV (RBC) [Entitic vol] 92.7 fL 81-99 [facility] Mean corpuscular hemoglobin (MCH) determinationOrdered By: Safia Ruelas 10-08-2024 MCH (RBC) [Entitic mass] 29.6 pg 27.0-32.0 [facility] Mean corpuscular hemoglobin concentration (MCHC) determinationOrdered By: Safia Ruelas on 10-08-2024 MCHC (RBC) [Mass/Vol] 31.9 g/dL Low 32-36 [facility] Mean platelet volume determi nationOrdered By: Safia Ruelas on 10-08-2024 Platelet mean volume (Bld) [Entitic vol] 11.0 fL 6.2-12.0 [facility] Monocyte percentageOrdered B y: Safia Ruelas on 10-08-2024 Monocytes/100 WBC (Bld) 9.2 % 0-10 [facility] Neutrophil percentageOrdered By: Safia Ruelas on 10-08-2024 Neutrophils/100 WBC (Bld) 57.7 % 47-70 [facility] Nucleated red blood cell per centageOrdered By: Safia Ruelas on 10-08-2024 Nucleated RBC/100 WBC (Bld) [Ratio] 0 % 0-5 [facility] Platelet countOrdered By: Balbir jean mariejosé antonio Ruelas on 10-08-2024 Platelets (Bld) [#/Vol] 323 10*3/uL 150-450 [facility] Potassium measurement (mass/ volume)Ordered By: Safia Ruelas on 10-08-2024 Potassium (Unsp spec) [Mass/Vol] 4.1 mmol/L 3.3-5.1 [facility] RBC Auto (Bld) [#/Vol]Ordere d By: Safia Ruelas on 10-08-2024 RBC (Bld) [#/Vol] 4.50 10*6/uL 4.2-5.4 [facility] Serum creatinine measurement (mass/volume)Ordered By: Safia Ruelas on 10-08-2024 Creatinine [Mass/Vol] 0.90 mg/dL 0.70-1.20 [facility] Serum glucose measurement (m ass/volume)Ordered By: Safia Ruelas on 10-08-2024 Glucose [Mass/Vol] 82 mg/dL 70-99 [facility] Serum or plasma calcium dayna urement (mass/volume)Ordered By: Safia Ruelas on 10-08-2024 Calcium [Mass/Vol] 9.6 mg/dL 7.6-11.0 [facility] Serum or plasma urea nitroge n measurement (mass/volume)Ordered By: Safia Ruelas on 10-08-2024 Urea nitrogen [Mass/Vol] 31 mg/dL High 4-19 [facility] Sodium levelOrdered By: Leonides Ruelas on 10-08-2024 Sodium [Moles/Vol] 138 mmol/L 133-145 [facility] White blood cell (WBC) count Ordered By: Safia Ruelas on 10-08-2024 WBC (Bld) [#/Vol] 8.6 10*3/uL 4.4-11.0 [facility] 12 Lead EKG performed by [facility] on 10-02-2024 12 Lead EKG performed by [facility] [address] [place] [address] 12 Lead EKG performed by [facility] 10/02/24920 MR#: [id number] Acct: [id number] Name: LINDSAY ACUNA Rep #: [id number] : 1945 78 From: Mj Benavides MD Attending Dr: Dr. Mj Benavides MD Status: DEP A MB Ordering Dr: Mj Benavides MD Date: 10/02/24 Location: [facility] Sex: F C Admitted: BMS/12 Lead EKG performed by [facility] ECG Report Interpretation ---Atrial fibrillation -irregular conduction -Old anterior infarct. ABNORMAL Electronically signed on 10/02/2024 at 16:06 by Mj Benavides [employer] Software Version 8610 10/02/24 1608 Date Mj Benavides MD CC: Dr. Kameron Caruso MD Date Dictated: 10/02/24920 Date Transcribed: 10/02/24920 Tip Stretcher: CO Signed Normal [facility] Cardiology Visit Reporton Cardiology Visit Report [facility] [address] [place] [address] OFFICE VISIT Date of Service: 10/02/24 MR#: [id number] Acct: [id number] Name: LINDSAY ACUNA Rep #: [id number] : 1945 Provider: Dr. Mj Benavides MD Age/Sex: 78/F Location: [facility] Status: Signed HPI HPI History of Present [...] now she is currently domiciled in a halfway. Her previous echocardiogram which was performed in [...] d/t W/C bound Intake Visit [facility] [employer] Required: No Accompanied by: Significant Other Is [...] you fallen in the past year?: Yes [facility] Medical History Acute ischemic right MCA stroke [...] normal, nasal (more content not included)... Normal [facility] Absolute lymphocyte countOrd ered By: Safia Ruelas on 10-01-2024 Lymphocytes Auto (Unsp spec) [#/Vol] 2.45 10*3/uL 0.83-4.51 [facility] Absolute neutrophil countOrd ered By: Safia Ruelas on 10-01-2024 Neutrophils (Bld) [#/Vol] 6.5 10*3/uL 2.0-7.7 [facility] Anion gap in Serum or Plasma Ordered By: Safia Ruelas on 10-01-2024 Anion gap [Moles/Vol] 12 mmol/L 5-15 [facility] Automated lymphocyte count a s percentage of total leukocytesOrdered By: Safia Ruelas on 10-01-2024 Lymphocytes/100 WBC Auto (Unsp spec) 23.1 % 19- [facility] BUN/creatinine ratioOrdered By: Safia Ruelas on 10-01-2024 Urea nitrogen/Creatinine [Mass ratio] 24.9 mg/mg High - [facility] Basophil percentageOrdered B y: Safia Ruelas on 10-01-2024 Basophils/100 WBC (Bld) 0.5 % 0-1 [facility] Carbon dioxide, total [Moles /volume] in Central venous bloodOrdered By: Safia Ruelas on 10-01-2024 CO2 [Moles/Vol] 24.4 mmol/L 21.0-32.0 [facility] Chloride assayOrdered By: Balbir Ruelas on 10-01-2024 Chloride [Moles/Vol] 99 mmol/L 98-108 [facility] Eosinophil percentageOrdered By: Safia Ruelas on 10-01-2024 Eosinophils/100 WBC (Bld) 2.0 % 0-5 [facility] Erythrocyte distribution wid th ratioOrdered By: Safia Ruelas on 10-01-2024 Erythrocyte distribution width (RBC) [Ratio] 13.5 % 11.6-14.6 [facility] Erythrocyte distribution wid th standard deviationOrdered By: Safia Ruelas on 10-01-2024 Erythrocyte distribution width (RBC) [Ratio] 46.2 fl High 35.1-43.9 [facility] Glomerular filtration rate ( GFR) estimation/1.73 sq m using serum, plasma, or whole bOrdered By: Safia Ruelas on 10-01-2024 GFR/1.73 sq M.predicted among non-blacks MDRD (S/P/Bld) [Vol rate/Area] 63 mL/min/{1.73_m2} >60 [facility] Comment on above: mL/min/1.73m2 CKD-EP I Creatinine Equation (2020) Hematocrit Auto (Bld) [Volum e fraction]Ordered By: Safia Ruelas 10-01-2024 Hematocrit (Bld) [Volume fraction] 38.7 % 37-47 [facility] Hemoglobin measurementOrdere d By: Safia Ruelas on 10-01-2024 Hemoglobin (Bld) [Mass/Vol] 12.5 g/dL 12.0-15.0 [facility] Immature granulocytes/100 WB C Auto (Bld)Ordered By: Safia Ruelas on 10-01-2024 Immature granulocytes/100 WBC (Bld) 0.800 % 0.0-0.9 [facility] Comment on above: IG% - Immature Granu locytes (promyelocytes, myelocytes and metamyelocytes) > 1% indicates that a LEFT SHIFT is Present. MCV (mean corpuscular volume ) determinationOrdered By: Safia Ruelas on 10-01-2024 MCV (RBC) [Entitic vol] 93.3 fL 81-99 [facility] Mean corpuscular hemoglobin (MCH) determinationOrdered By: Safia Ruelas on 10-01-2024 MCH (RBC) [Entitic mass] 30.1 pg 27.0-32.0 [facility] Mean corpuscular hemoglobin concentration (MCHC) determinationOrdered By: Safia Ruelas on 10-01-2024 MCHC (RBC) [Mass/Vol] 32.3 g/dL 32-36 [facility] Mean platelet volume determi nationOrdered By: Safia Ruelas on 10-01-2024 Platelet mean volume (Bld) [Entitic vol] 11.7 fL 6.2-12.0 [facility] Monocyte percentageOrdered B y: Safia Ruelas on 10-01-2024 Monocytes/100 WBC (Bld) 12.7 % High 0-10 [facility] Neutrophil percentageOrdered By: Safia Ruelas on 10-01-2024 Neutrophils/100 WBC (Bld) 60.9 % 47-70 [facility] Nucleated red blood cell per centageOrdered By: Safia Ruelas on 10-01-2024 Nucleated RBC/100 WBC (Bld) [Ratio] 0 % 0-5 [facility] Platelet countOrdered By: Balbir Ruelas on 10-01-2024 Platelets (Bld) [#/Vol] 371 10*3/uL 150-450 [facility] Potassium measurement (mass/ volume)Ordered By: Safia Ruelas on 10-01-2024 Potassium (Unsp spec) [Mass/Vol] 4.2 mmol/L 3.3-5.1 [facility] RBC Auto (Bld) [#/Vol]Ordere d By: Safia Ruelas on 10-01-2024 RBC (Bld) [#/Vol] 4.15 10*6/uL Low 4.2-5.4 [facility] Serum creatinine measurement (mass/volume)Ordered By: Safia Ruelas on 10-01-2024 Creatinine [Mass/Vol] 0.93 mg/dL 0.70-1.20 [facility] Serum glucose measurement (m ass/volume)Ordered By: Safia Ruelas on 10-01-2024 Glucose [Mass/Vol] 93 mg/dL 70-99 [facility] Serum or plasma calcium dayna urement (mass/volume)Ordered By: Safia Ruelas on 10-01-2024 Calcium [Mass/Vol] 9.5 mg/dL 7.6-11.0 [facility] Serum or plasma urea nitroge n measurement (mass/volume)Ordered By: Safia Ruelas on 10-01-2024 Urea nitrogen [Mass/Vol] 23 mg/dL High 4-19 [facility] Sodium levelOrdered By: Leonides josé antonio Jessenia on 10-01-2024 Sodium [Moles/Vol] 135 mmol/L 133-145 [facility] White blood cell (WBC) count Ordered By: Safia Ruelas on 10-01-2024 WBC (Bld) [#/Vol] 10.6 10*3/uL 4.4-11.0 [facility] Clostridium difficile detect ion by polymerase chain reactionOrdered By: Safia Ruelas on 09-29-2024 C. difficile DNA CHUCKY+probe Ql (Unsp spec) [facility] Absolute lymphocyte countOrd ered By: Safia Ruelas on 09-24-2024 Lymphocytes Auto (Unsp spec) [#/Vol] 2.72 10*3/uL 0.83-4.51 [facility] Absolute neutrophil countOrd ered By: Safia Ruelas on 09-24-2024 Neutrophils (Bld) [#/Vol] 6.3 10*3/uL 2.0-7.7 [facility] Anion gap in Serum or Plasma Ordered By: Safia Ruelas on 09-24-2024 Anion gap [Moles/Vol] 12 mmol/L 5-15 [facility] Automated lymphocyte count a s percentage of total leukocytesOrdered By: Safia Ruelas on 09-24-2024 Lymphocytes/100 WBC Auto (Unsp spec) 26.3 % 19-41 [facility] BUN/creatinine ratioOrdered By: Safia Ruelas on 09-24-2024 Urea nitrogen/Creatinine [Mass ratio] 36.4 mg/mg High 10-20 [facility] Basophil percentageOrdered B y: Safia Ruelas on 09-24-2024 Basophils/100 WBC (Bld) 0.7 % 0-1 [facility] Carbon dioxide, total [Moles /volume] in Central venous bloodOrdered By: Safia Ruelas on 09-24-2024 CO2 [Moles/Vol] 24.1 mmol/L 21.0-32.0 [facility] Chloride assayOrdered By: Balbir Ruelas on 09-24-2024 Chloride [Moles/Vol] 100 mmol/L 98-108 [facility] Eosinophil percentageOrdered By: Safia Ruelas on 09-24-2024 Eosinophils/100 WBC (Bld) 2.7 % 0-5 [facility] Erythrocyte distribution wid th ratioOrdered By: Safia Ruelas on 09-24-2024 Erythrocyte distribution width (RBC) [Ratio] 13.6 % 11.6-14.6 [facility] Erythrocyte distribution wid th standard deviationOrdered By: Safia Ruelas on 09-24-2024 Erythrocyte distribution width (RBC) [Ratio] 47.1 fl High 35.1-43.9 [facility] Glomerular filtration rate ( GFR) estimation/1.73 sq m using serum, plasma, or whole bOrdered By: Safia Ruelas on 09-24-2024 GFR/1.73 sq M.predicted among non-blacks MDRD (S/P/Bld) [Vol rate/Area] 62 mL/min/{1.73_m2} >60 [facility] Comment on above: mL/min/1.73m2 CKD-EP I Creatinine Equation (2020) Hematocrit Auto (Bld) [Volum e fraction]Ordered By: Safia Ruelas on 09-24-2024 Hematocrit (Bld) [Volume fraction] 41.2 % 37-47 [facility] Hemoglobin measurementOrdere d By: Safia Ruelas on 09-24-2024 Hemoglobin (Bld) [Mass/Vol] 13.0 g/dL 12.0-15.0 [facility] Immature granulocytes/100 WB C Auto (Bld)Ordered By: Saifa Ruelas on 09-24-2024 Immature granulocytes/100 WBC (Bld) 1.000 % High 0.0-0.9 [facility] Comment on above: IG% - Immature Granu locytes (promyelocytes, myelocytes and metamyelocytes) > 1% indicates that a LEFT SHIFT is Present. MCV (mean corpuscular volume ) determinationOrdered By: Safia Ruelas on 09-24-2024 MCV (RBC) [Entitic vol] 94.3 fL 81-99 [facility] Mean corpuscular hemoglobin (MCH) determinationOrdered By: Safia Ruelas on 09-24-2024 MCH (RBC) [Entitic mass] 29.7 pg 27.0-32.0 [facility] Mean corpuscular hemoglobin concentration (MCHC) determinationOrdered By: Safia Ruelas on 09-24-2024 MCHC (RBC) [Mass/Vol] 31.6 g/dL Low 32-36 [facility] Mean platelet volume determi nationOrdered By: Safia Ruelas on 09-24-2024 Platelet mean volume (Bld) [Entitic vol] 11.3 fL 6.2-12.0 [facility] Monocyte percentageOrdered B y: Safia Ruelas on 09-24-2024 Monocytes/100 WBC (Bld) 8.9 % 0-10 [facility] Neutrophil percentageOrdered By: Safia Ruelas on 09-24-2024 Neutrophils/100 WBC (Bld) 60.4 % 47-70 [facility] Nucleated red blood cell per centageOrdered By: Sfaia Ruelas on 09-24-2024 Nucleated RBC/100 WBC (Bld) [Ratio] 0 % 0-5 [facility] Platelet countOrdered By: Balbir Ruelas on 09-24-2024 Platelets (Bld) [#/Vol] 441 10*3/uL 150-450 [facility] Potassium measurement (mass/ volume)Ordered By: Safia Ruelas on 09-24-2024 Potassium (Unsp spec) [Mass/Vol] 4.3 mmol/L 3.3-5.1 [facility] RBC Auto (Bld) [#/Vol]Ordere d By: Safia Cheoquyen on 09-24-2024 RBC (Bld) [#/Vol] 4.37 10*6/uL 4.2-5.4 [facility] Serum creatinine measurement (mass/volume)Ordered By: Leonidesdesireeskye Griderbonikayla on 09-24-2024 Creatinine [Mass/Vol] 0.93 mg/dL 0.70-1.20 [facility] Serum glucose measurement (m ass/volume)Ordered By: Balbirsherry Ruelas on 09-24-2024 Glucose [Mass/Vol] 48 mg/dL Low 70-99 [facility] Serum or plasma calcium dayna urement (mass/volume)Ordered By: Balbirsherry Griderbonikayla on 09-24-2024 Calcium [Mass/Vol] 9.5 mg/dL 7.6-11.0 [facility] Serum or plasma urea nitroge n measurement (mass/volume)Ordered By: Balbirjean mariedesireeskye Griderbonikayla on 09-24-2024 Urea nitrogen [Mass/Vol] 34 mg/dL High 4-19 [facility] Sodium levelOrdered By: Leonides chou Cheobonikayla on 09-24-2024 Sodium [Moles/Vol] 136 mmol/L 133-145 [facility] White blood cell (WBC) count Ordered By: Leonidesdesireeskye Ruelas on 09-24-2024 WBC (Bld) [#/Vol] 10.4 10*3/uL 4.4-11.0 [facility] Absolute lymphocyte countOrd ered By: Balbirjean mariedesireeskye Griderbonikayla on 09-17-2024 Lymphocytes Auto (Unsp spec) [#/Vol] 2.52 10*3/uL 0.83-4.51 [facility] Absolute neutrophil countOrd ered By: Bandarskye Griderbonikayla on 09-17-2024 Neutrophils (Bld) [#/Vol] 5.8 10*3/uL 2.0-7.7 [facility] Anion gap in Serum or Plasma Ordered By: Safia Ruelas on 09-17-2024 Anion gap [Moles/Vol] 12 mmol/L 5-15 [facility] Automated lymphocyte count a s percentage of total leukocytesOrdered By: Safia Ruelas on 09-17-2024 Lymphocytes/100 WBC Auto (Unsp spec) 26.3 % 19-41 [facility] BUN/creatinine ratioOrdered By: Safia Ruelas on 09-17-2024 Urea nitrogen/Creatinine [Mass ratio] 45.9 mg/mg High 10-20 [facility] Basophil percentageOrdered B y: Safia Ruelas on 09-17-2024 Basophils/100 WBC (Bld) 0.6 % 0-1 [facility] Calculated very low density lipoprotein (VLDL) cholesterol measurementOrdered By: Safia Ruelas on 09-17-2024 Calculated very low density lipoprotein (VLDL) cholesterol measurement 22 mg/dL 5-40 [facility] Carbon dioxide, total [Moles /volume] in Central venous bloodOrdered By: Safia Ruelas on 09-17-2024 CO2 [Moles/Vol] 24.5 mmol/L 21.0-32.0 [facility] Chloride assayOrdered By: Balbir Ruelas on 09-17-2024 Chloride [Moles/Vol] 98 mmol/L 98-108 [facility] Eosinophil percentageOrdered By: Safia Ruelas on 09-17-2024 Eosinophils/100 WBC (Bld) 3.2 % 0-5 [facility] Erythrocyte distribution wid th ratioOrdered By: Safia Ruelas on 09-17-2024 Erythrocyte distribution width (RBC) [Ratio] 13.4 % 11.6-14.6 [facility] Erythrocyte distribution wid th standard deviationOrdered By: Safia Ruelas on 09-17-2024 Erythrocyte distribution width (RBC) [Ratio] 45.4 fl High 35.1-43.9 [facility] Glomerular filtration rate ( GFR) estimation/1.73 sq m using serum, plasma, or whole bOrdered By: Safia Ruelas on 09-17-2024 GFR/1.73 sq M.predicted among non-blacks MDRD (S/P/Bld) [Vol rate/Area] 69 mL/min/{1.73_m2} >60 [facility] Comment on above: mL/min/1.73m2 CKD-EP I Creatinine Equation (2020) Hematocrit Auto (Bld) [Volum e fraction]Ordered By: Safia Ruelas on 09-17-2024 Hematocrit (Bld) [Volume fraction] 38.8 % 37-47 [facility] Hemoglobin measurementOrdere d By: Safia Ruelas on 09-17-2024 Hemoglobin (Bld) [Mass/Vol] 12.6 g/dL 12.0-15.0 [facility] Immature granulocytes/100 WB C Auto (Bld)Ordered By: Safia Ruelas on 09-17-2024 Immature granulocytes/100 WBC (Bld) 0.700 % 0.0-0.9 [facility] Comment on above: IG% - Immature Granu locytes (promyelocytes, myelocytes and metamyelocytes) > 1% indicates that a LEFT SHIFT is Present. LDL calc ser/plasOrdered By: Safia Ruelas on 09-17-2024 Cholesterol in LDL [Mass/Vol] 120 mg/dL [facility] Comment on above: Bmajldezna=165-745 m g/dL & Higher Crnu=505 mg/dL or greater MCV (mean corpuscular volume ) determinationOrdered By: Safia Ruelas on 09-17-2024 MCV (RBC) [Entitic vol] 91.7 fL 81-99 [facility] Mean corpuscular hemoglobin (MCH) determinationOrdered By: Safia Ruelas on 09-17-2024 MCH (RBC) [Entitic mass] 29.8 pg 27.0-32.0 [facility] Mean corpuscular hemoglobin concentration (MCHC) determinationOrdered By: Safia Ruelas on 09-17-2024 MCHC (RBC) [Mass/Vol] 32.5 g/dL 32-36 [facility] Mean platelet volume determi nationOrdered By: Safia Ruelas on 09-17-2024 Platelet mean volume (Bld) [Entitic vol] 11.4 fL 6.2-12.0 [facility] Monocyte percentageOrdered B y: Safia Ruelas on 09-17-2024 Monocytes/100 WBC (Bld) 8.5 % 0-10 [facility] Neutrophil percentageOrdered By: Safia Ruelas on 09-17-2024 Neutrophils/100 WBC (Bld) 60.7 % 47-70 [facility] Nucleated red blood cell per centageOrdered By: Safia Ruelas on 09-17-2024 Nucleated RBC/100 WBC (Bld) [Ratio] 0 % 0-5 [facility] Platelet countOrdered By: Balbir Ruelas on 09-17-2024 Platelets (Bld) [#/Vol] 311 10*3/uL 150-450 [facility] Potassium measurement (mass/ volume)Ordered By: Safia Ruelas on 09-17-2024 Potassium (Unsp spec) [Mass/Vol] 4.1 mmol/L 3.3-5.1 [facility] RBC Auto (Bld) [#/Vol]Ordere d By: Safia Ruelas on 09-17-2024 RBC (Bld) [#/Vol] 4.23 10*6/uL 4.2-5.4 [facility] Screening total cholesterol/ high density lipoprotein (HDL) cholesterol ratioOrdered By: Safia Ruelas on 09-17-2024 Cholesterol.total/Alta sterol in HDL [Mass ratio] 5.38 {ratio} [facility] Serum creatinine measurement (mass/volume)Ordered By: Safia Ruelas on 09-17-2024 Creatinine [Mass/Vol] 0.86 mg/dL 0.70-1.20 [facility] Serum glucose measurement (m ass/volume)Ordered By: Safia Ruelas on 09-17-2024 Glucose [Mass/Vol] 216 mg/dL High 70-99 [facility] Serum or plasma calcium dayna urement (mass/volume)Ordered By: Safia Ruelas on 09-17-2024 Calcium [Mass/Vol] 9.4 mg/dL 7.6-11.0 [facility] Serum or plasma cholesterol in HDL measurement (mass/volume)Ordered By: Safia Ruelas on 09-17-2024 Cholesterol in HDL [Mass/Vol] 33 mg/dL Low >40 [facility] Comment on above: National Cholesterol Education Program (NCEP) guidelines:<40 mg/dL: Low HDL-cholesterol (major risk factor for CHD)>= 60 mg/dL: High HDL-cholesterol (negative risk factor for CHD)HDL-cholesterol is affected by a number of factors, e.g. smoking, exercise, hormones, sex and age. Serum or plasma cholesterol measurement (mass/volume)Ordered By: Safia Ruelas on 09-17-2024 Cholesterol [Mass/Vol] 175 mg/dL <201 [facility] Comment on above: Cholesterol level, D esirable <200 mg/dLBorderline high cholesterol 200-239 mg/dLHigh cholesterol >=240 mg/dLRecommendations of the NCEP Adult Treatment Panel for the following risk-cutoff thresholds for the [place] population. Serum or plasma urea nitroge n measurement (mass/volume)Ordered By: Safia Ruelas on 09-17-2024 Urea nitrogen [Mass/Vol] 39 mg/dL High 4-19 [facility] Sodium levelOrdered By: Leonides Ruelas on 09-17-2024 Sodium [Moles/Vol] 134 mmol/L 133-145 [facility] TSH DL <= 0.005 mIU/L QnOrde red By: Safia Ruelas on 09-17-2024 TSH Qn 3.500 uIU/mL 0.300-4.200 [facility] Triglycerides measurementOrd ered By: Safia Ruelas on 09-17-2024 Triglyceride [Mass/Vol] 111 mg/dL <199 [facility] Comment on above: The drugs N-Acetylcy steine and Metamizole may falsely depress this assay. Normal range: <150 mg/dLBorderline High: 150-199 mg/dLHigh: 200-499 mg/dLVery High: >500 mg/dL White blood cell (WBC) count Ordered By: Safia Ruelas on 09-17-2024 WBC (Bld) [#/Vol] 9.6 10*3/uL 4.4-11.0 [facility] Absolute lymphocyte countOrd ered By: Safia Ruelas on 09-10-2024 Lymphocytes Auto (Unsp spec) [#/Vol] 2.11 10*3/uL 0.83-4.51 [facility] Absolute neutrophil countOrd ered By: Safia Ruelas on 09-10-2024 Neutrophils (Bld) [#/Vol] 8.1 10*3/uL High 2.0-7.7 [facility] Anion gap in Serum or Plasma Ordered By: Safia Westonkayla on 09-10-2024 Anion gap [Moles/Vol] 13 mmol/L 5-15 [facility] Automated lymphocyte count a s percentage of total leukocytesOrdered By: Safia Ruelas on 09-10-2024 Lymphocytes/100 WBC Auto (Unsp spec) 17.9 % Low 19-41 [facility] BUN/creatinine ratioOrdered By: Safia Ruelas on 09-10-2024 Urea nitrogen/Creatinine [Mass ratio] 29.1 mg/mg High 10-20 [facility] Basophil percentageOrdered B y: Safia Ruelas on 09-10-2024 Basophils/100 WBC (Bld) 0.3 % 0-1 [facility] Bilirubin, totalOrdered By: Safia Ruelas on 09-10-2024 Bilirubin [Mass/Vol] 0.55 mg/dL 0.00-1.30 [facility] Carbon dioxide, total [Moles /volume] in Central venous bloodOrdered By: Safia Ruelas on 09-10-2024 CO2 [Moles/Vol] 23.6 mmol/L 21.0-32.0 [facility] Chloride assayOrdered By: sherry Westonkayla on 09-10-2024 Chloride [Moles/Vol] 97 mmol/L Low 98-108 [facility] Eosinophil percentageOrdered By: Safia Westone on 09-10-2024 Eosinophils/100 WBC (Bld) 0.5 % 0-5 [facility] Erythrocyte distribution wid th ratioOrdered By: Safia Ruelas on 09-10-2024 Erythrocyte distribution width (RBC) [Ratio] 13.4 % 11.6-14.6 [facility] Erythrocyte distribution wid th standard deviationOrdered By: Safia Ruelas on 09-10-2024 Erythrocyte distribution width (RBC) [Ratio] 45.2 fl High 35.1-43.9 [facility] Glomerular filtration rate ( GFR) estimation/1.73 sq m using serum, plasma, or whole bOrdered By: Safia Ruelas on 09-10-2024 GFR/1.73 sq M.predicted among non-blacks MDRD (S/P/Bld) [Vol rate/Area] 59 mL/min/{1.73_m2} Low >60 [facility] Comment on above: mL/min/1.73m2 CKD-EP I Creatinine Equation (2020) Hematocrit Auto (Bld) [Volum e fraction]Ordered By: Safia Ruelas on 09-10-2024 Hematocrit (Bld) [Volume fraction] 41.8 % 37-47 [facility] Hemoglobin measurementOrdere d By: Safia Ruelas on 09-10-2024 Hemoglobin (Bld) [Mass/Vol] 13.4 g/dL 12.0-15.0 [facility] Immature granulocytes/100 WB C Auto (Bld)Ordered By: Safia Ruelas 09-10-2024 Immature granulocytes/100 WBC (Bld) 0.800 % 0.0-0.9 [facility] Comment on above: IG% - Immature Granu locytes (promyelocytes, myelocytes and metamyelocytes) > 1% indicates that a LEFT SHIFT is Present. Laboratory - Chemistry and C hemistry - challengeOrdered By: Safia Ruelas on 09-10-2024 AST [Catalytic activity/Vol] 21 U/L <32 [facility] MCV (mean corpuscular volume ) determinationOrdered By: Safia Ruelas 09-10-2024 MCV (RBC) [Entitic vol] 92.5 fL 81-99 [facility] Mean corpuscular hemoglobin (MCH) determinationOrdered By: Safia Ruelas 09-10-2024 MCH (RBC) [Entitic mass] 29.6 pg 27.0-32.0 [facility] Mean corpuscular hemoglobin concentration (MCHC) determinationOrdered By: Safia Ruelas on 09-10-2024 MCHC (RBC) [Mass/Vol] 32.1 g/dL 32-36 [facility] Mean platelet volume determi nationOrdered By: Safia Ruelas on 09-10-2024 Platelet mean volume (Bld) [Entitic vol] 12.6 fL High 6.2-12.0 [facility] Monocyte percentageOrdered B y: Safia Ruelas on 09-10-2024 Monocytes/100 WBC (Bld) 12.3 % High 0-10 [facility] Neutrophil percentageOrdered By: Safia Ruelas on 09-10-2024 Neutrophils/100 WBC (Bld) 68.2 % 47-70 [facility] Nucleated red blood cell per centageOrdered By: Safia Ruelas on 09-10-2024 Nucleated RBC/100 WBC (Bld) [Ratio] 0 % 0-5 [facility] Platelet countOrdered By: Balbir jean mariejosé antonio Ruelas on 09-10-2024 Platelets (Bld) [#/Vol] 190 10*3/uL 150-450 [facility] Potassium measurement (mass/ volume)Ordered By: Safia Ruelas on 09-10-2024 Potassium (Unsp spec) [Mass/Vol] 4.3 mmol/L 3.3-5.1 [facility] RBC Auto (Bld) [#/Vol]Ordere d By: Safia Ruelas on 09-10-2024 RBC (Bld) [#/Vol] 4.52 10*6/uL 4.2-5.4 [facility] Serum creatinine measurement (mass/volume)Ordered By: Safia Ruelas on 09-10-2024 Creatinine [Mass/Vol] 0.98 mg/dL 0.70-1.20 [facility] Serum globulin measurementOr dered By: Safia Ruelas on 09-10-2024 Globulin (S) [Mass/Vol] 3.3 g/dL 2.2-4.2 [facility] Serum glucose measurement (m ass/volume)Ordered By: Safia Ruelas on 09-10-2024 Glucose [Mass/Vol] 181 mg/dL High 70-99 [facility] Serum or plasma alanine raymundo otransferase (ALT) measurementOrdered By: Balbirsherry Ruelas on 09-10-2024 ALT [Catalytic activity/Vol] 26 U/L <35 [facility] Serum or plasma albumin dayna urement (mass/volume)Ordered By: Safia Ruelas on 09-10-2024 Albumin [Mass/Vol] 3.4 g/dL 3.4-4.8 [facility] Serum or plasma albumin/glob ulin mass ratioOrdered By: Safia Ruelas on 09-10-2024 Albumin/Globulin [Mass ratio] 1.0 {ratio} 0.9-2.4 [facility] Serum or plasma alkaline hannah sphatase measurementOrdered By: Safia Ruelas on 09-10-2024 ALP [Catalytic activity/Vol] 114 U/L High 35-104 [facility] Serum or plasma calcium dayna urement (mass/volume)Ordered By: Safia Ruelas on 09-10-2024 Calcium [Mass/Vol] 9.3 mg/dL 7.6-11.0 [facility] Serum or plasma urea nitroge n measurement (mass/volume)Ordered By: Safia Ruelas on 09-10-2024 Urea nitrogen [Mass/Vol] 29 mg/dL High 4-19 [facility] Sodium levelOrdered By: Leonides jiménezradha Jessenia on 09-10-2024 Sodium [Moles/Vol] 133 mmol/L 133-145 [facility] Total proteinOrdered By: Augusto sherlynskye Ruelas on 09-10-2024 Protein [Mass/Vol] 6.7 g/dL 5.9-8.4 [facility] White blood cell (WBC) count Ordered By: Safia Ruelas on 09-10-2024 WBC (Bld) [#/Vol] 11.8 10*3/uL High 4.4-11.0 [facility] LABORATORYOrdered By: Abigail Smith on 09-09-2024 Glucose [Mass/Vol] 212 mg/dL High 82 - 115 mg/dL [facility] Work Phone: Glucose [Mass/Vol] 226 mg/dL High 82 - 115 mg/dL [place] [facility] Work Phone: LABORATORYOrdered By: Zoila Zarco on 09-08-2024 Glucose [Mass/Vol] 149 mg/dL High 82 - 115 mg/dL [place] [facility] Work Phone: LABORATORYOrdered By: Rob Palmer on 09-08-2024 Blood Glucose Testing Reason Routine (09/08/24 6:16 PM) [facility] Work Phone: Blood Glucose Testing Reason Routine (09/08/24 11:58 AM) [employer] Work Phone: LABORATORYOrdered By: Rob Palmer on 09-07-2024 Blood Glucose Testing Reason Routine (09/07/24 4:46 PM) [employer] Work Phone: .Auto Diffon 09-03-2024 Basophil, Absolute 0.1 10 3/mcL Normal 0.0-0.3 [facility] Comment on above: Performed By: #### A DIFF, CBC, ANEU, GFR, BMP #### [address] [address] Basophils/100 WBC (Bld) 1.0 % Normal 0.0-2.5 [facility] Comment on above: Performed By: #### A DIFF, CBC, ANEU, GFR, BMP #### [address] [address] Eosinophil, Absolute 0.2 10 3/mcL Normal 0.0-0.7 [facility] Comment on above: Performed By: #### A DIFF, CBC, ANEU, GFR, BMP #### [address] [address] Eosinophils/100 WBC (Bld) 3.2 % Normal 0.0-6.0 [facility] Comment on above: Performed By: #### A DIFF, CBC, ANEU, GFR, BMP #### [address] [address] Lymphocyte, Absolute 2.0 10 3/mcL Normal 0.9-4.3 [facility] Comment on above: Performed By: #### A DIFF, CBC, ANEU, GFR, BMP #### [address] [address] Lymphocytes/100 WBC (Bld) 26.6 % Normal 20.0-40.0 [facility] Comment on above: Performed By: #### A DIFF, CBC, ANEU, GFR, BMP #### [address] [address] Monocyte, Absolute 0.7 10 3/mcL Normal 0.1-1.4 [facility] Comment on above: Performed By: #### A DIFF, CBC, ANEU, GFR, BMP #### [address] [address] Monocytes/100 WBC (Bld) 9.7 % Normal 2.0-13.0 [facility] Comment on above: Performed By: #### A DIFF, CBC, ANEU, GFR, BMP #### [address] [address] Neutrophils/100 WBC (Bld) 59.5 % Normal 50.0-75.0 [facility] Comment on above: Performed By: #### A DIFF, CBC, ANEU, GFR, BMP #### [address] [address] .GFRon 09-03-2024 Estimated Glomerular Filtration Rate 57 ml/min/1.73sqm Normal [facility] Comment on above: Result [...] A DIFF, CBC, ANEU, GFR, BMP #### [place] [address] .NEUABSon 09-03-2024 Neutrophil, Absolute 4.5 10 3/mcL Normal 2.3-8.1 [facility] Comment on above: Performed By: #### A DIFF, CBC, ANEU, GFR, BMP #### [place] [address] B12on 09-03-2024 Cobalamin (Vitamin B12) [Mass/Vol] 834 pg/mL Normal 211-911 [facility] Comment on above: Performed By: #### A DIFF, CBC, ANEU, GFR, BMP #### [place] [address] CBCon 09-03-2024 Erythrocyte distribution width (RBC) [Ratio] 14.7 % Normal 11.5-15.5 [facility] Comment on above: Performed By: #### A DIFF, CBC, ANEU, GFR, BMP #### [place] [address] Hematocrit (Bld) [Volume fraction] 39.7 % Normal 34.0-46.0 [facility] Comment on above: Performed By: #### A DIFF, CBC, ANEU, GFR, BMP #### [place] [address] Hgb 13.2 G/dL Normal 12.0-16.0 [facility] Comment on above: Performed By: #### A DIFF, CBC, ANEU, GFR, BMP #### [place] [address] MCH (RBC) [Entitic mass] 30.6 pg Normal 27.0-33.0 [facility] Comment on above: Performed By: #### A DIFF, CBC, ANEU, GFR, BMP #### [place] [address] MCHC 33.3 G/dL Normal 32.0-36.0 [facility] Comment on above: Performed By: #### A DIFF, CBC, ANEU, GFR, BMP #### [address] [address] MCV (RBC) [Entitic vol] 91.9 fL Normal 80.0-99.0 [facility] Comment on above: Performed By: #### A DIFF, CBC, ANEU, GFR, BMP #### [address] [address] Platelet 228 10 3/mcL Normal 150-450 [facility] Comment on above: Performed By: #### A DIFF, CBC, ANEU, GFR, BMP #### [address] [address] Platelet mean volume (Bld) [Entitic vol] 10.1 fL Normal 6.6-10.5 [facility] Comment on above: Performed By: #### A DIFF, CBC, ANEU, GFR, BMP #### [address] [address] RBC 4.32 10 6/mcL Normal 4.10-5.30 [facility] Comment on above: Performed By: #### A DIFF, CBC, ANEU, GFR, BMP #### [address] [address] WBC 7.6 10 3/mcL Normal 4.5-10.8 [facility] Comment on above: Performed By: #### A DIFF, CBC, ANEU, GFR, BMP #### [address] [address] CMPon 09-03-2024 Albumin Level 3.0 G/dL Low 3.2-4.8 [facility] Comment on above: Performed By: #### A DIFF, CBC, ANEU, GFR, BMP #### [address] [address] Albumin/Globulin [Mass ratio] 0.9 {ratio} Normal 0.9-1.6 [facility] Comment on above: Performed By: #### A DIFF, CBC, ANEU, GFR, BMP #### [address] [address] ALP [Catalytic activity/Vol] 115 U/L Normal 38-126 [facility] Comment on above: Performed By: #### A DIFF, CBC, ANEU, GFR, BMP #### [address] [address] ALT [Catalytic activity/Vol] 37 U/L Normal 10-49 [facility] Comment on above: Performed By: #### A DIFF, CBC, ANEU, GFR, BMP #### [address] [address] AST [Catalytic activity/Vol] 31 U/L Normal 8-34 [facility] Comment on above: Performed By: #### A DIFF, CBC, ANEU, GFR, BMP #### [address] [address] Bili Total 0.50 mg/dL Normal 0.20-1.20 [facility] Comment on above: Result Comment: Use of this assay is not recommended for patients undergoing treatment with eltrombopag due to the potential for falsely elevated results. Performed By: #### A DIFF, CBC, ANEU, GFR, BMP #### [place] [id number] BUN/Creatinine Ratio 29.7 ratio High 10.0-22.0 [facility] Comment on above: Performed By: #### A DIFF, CBC, ANEU, GFR, BMP #### [address] [address] Calcium [Mass/Vol] 9.6 mg/dL Normal 8.7-10.4 [facility] Comment on above: Performed By: #### A DIFF, CBC, ANEU, GFR, BMP #### [address] [address] Chloride [Moles/Vol] 101 mmol/L Normal 98-110 [facility] Comment on above: Performed By: #### A DIFF, CBC, ANEU, GFR, BMP #### [address] [address] CO2 [Moles/Vol] 27 mmol/L Normal 22-32 [facility] Comment on above: Performed By: #### A DIFF, CBC, ANEU, GFR, BMP #### [address] [address] Creatinine [Mass/Vol] 1.01 mg/dL Normal 0.50-1.20 [facility] Comment on above: Result Comment: Test ing performed on Imgur analyzer using enzymatic creatinine methodology. Performed By: #### A DIFF, CBC, ANEU, GFR, BMP #### [address] [address] Electrolyte Balance 10.0 mEq/L Normal 4.0-15.0 [facility] Comment on above: Performed By: #### A DIFF, CBC, ANEU, GFR, BMP #### [address] [address] Globulin 3.4 G/dL Normal 1.5-3.8 [facility] Comment on above: Performed By: #### A DIFF, CBC, ANEU, GFR, BMP #### [address] [address] Glucose [Mass/Vol] 187 mg/dL High 82-115 [facility] Comment on above: Performed By: #### A DIFF, CBC, ANEU, GFR, BMP #### [place] [id number] Potassium [Moles/Vol] 4.6 mmol/L Normal 3.5-5.0 [facility] Comment on above: Performed By: #### A DIFF, CBC, ANEU, GFR, BMP #### [place] [id number] Sodium [Moles/Vol] 138 mmol/L Normal 136-145 [facility] Comment on above: Performed By: #### A DIFF, CBC, ANEU, GFR, BMP #### [address] [address] Total Protein 6.4 G/dL Normal 5.7-8.2 [facility] Comment on above: Performed By: #### A DIFF, CBC, ANEU, GFR, BMP #### [address] [address] Urea nitrogen [Mass/Vol] 30.0 mg/dL High 8.0-22.0 [facility] Comment on above: Performed By: #### A DIFF, CBC, ANEU, GFR, BMP #### [place] [id number] LABORATORYOrdered By: Ann Carrillo on 09-03-2024 Glucose [Mass/Vol] 270 mg/dL [facility] Work Phone: LABORATORYOrdered By: SYSTEM SYSTEM on [...] above: Interpretive Data: T esting performed on Imgur analyzer using enzymatic creatinine methodology. Electrolyte Balance 10.0 mEq/L Normal 4.0 - 15 .0 mEq/L AH ADM SS Eosinophils (Bld) [#/Vol] 0.2 103/mcL Normal 0.0 - 0.7 10^3/mcL AH Workflow SS Eosinophils/100 WBC (Bld) 3.2 % Normal 0.0 - 6.0 % AH [...] TSHon 09-03-2024 TSH 3.920 mIU/mL Normal 0.550-4.780 [facility] Comment on above: Performed By: #### A DIFF, CBC, ANEU, GFR, BMP #### [place] [address] CT HEAD OR BRAIN W/O CONTRAS Ton [...] 09/02/2024 3:10:44 PM [facility]ing [facility] RANDEE Telephone ([facility]) LINDSAY ACUNA ([id number]) 1945 F Date Time Provider Department 08/30/24 [facility] During your visit today, we recorded the following information about you: Jaiden Paulino, RN 08/30/2024 9:11 AM Signed [facility] reports patient was in [facility] with dx: stroke, and [facility]. [facility] with [facility] SN PT OT [facility] AND [facility]. Asking if pcp agreeable to follow for [facility]. Please phone Marya with verbal: [phone] Mj Glover APRN.GARRETT 08/30/2024 9:19 AM Signed Please let know that Dr. Caruso's team will follow orders. Okay to proceed. Mj Glover APRN.Fouzia Reynoso LPN 08/30/2024 10:09 AM Signed Marya with [facility] notified. Allergies As of Date: 08/30/2024 Noted Allergy Reaction BENZOCAINE 07/08/2005 2 - Rash COCAINE 05/28/2008 Comments: Inverted T PERFUMES 07/08/2005 12 - Shortness of Breath Comments: coughes and chokes SULFA (SULFONAMIDE ANTIBIOTICS) 07/08/2005 5 - Intolerance Date Reviewed: 06/26/2024 Reviewed by: Bret Arambula LPN - Fully Assessed Reason for Visit: Tyler [facility] requesting verbal agree to follow [Other] [...] Basophil, Absolute 0.1 10 3/mcL Normal 0.0-0.3 [facility] Comment on above: Performed By: #### A DIFF, CBC, ANEU, GFR, BMP #### [address] [address] Basophils/100 WBC (Bld) 1.0 % Normal 0.0-2.5 [facility] Comment on above: Performed By: #### A DIFF, CBC, ANEU, GFR, BMP #### [address] [address] Eosinophil, Absolute 0.3 10 3/mcL Normal 0.0-0.7 [facility] Comment on above: Performed By: #### A DIFF, CBC, ANEU, GFR, BMP #### [address] [address] Eosinophils/100 WBC (Bld) 4.2 % Normal 0.0-6.0 [facility] Comment on above: Performed By: #### A DIFF, CBC, ANEU, GFR, BMP #### [address] [address] Lymphocyte, Absolute 2.2 10 3/mcL Normal 0.9-4.3 [facility] Comment on above: Performed By: #### A DIFF, CBC, ANEU, GFR, BMP #### [address] [address] Lymphocytes/100 WBC (Bld) 26.3 % Normal 20.0-40.0 [facility] Comment on above: Performed By: #### A DIFF, CBC, ANEU, GFR, BMP #### [address] [address] Monocyte, Absolute 0.9 10 3/mcL Normal 0.1-1.4 [facility] Comment on above: Performed By: #### A DIFF, CBC, ANEU, GFR, BMP #### [address] [address] Monocytes/100 WBC (Bld) 11.4 % Normal 2.0-13.0 [facility] Comment on above: Performed By: #### A DIFF, CBC, ANEU, GFR, BMP #### [address] [address] Neutrophils/100 WBC (Bld) 57.1 % Normal 50.0-75.0 [facility] Comment on above: Performed By: #### A DIFF, CBC, ANEU, GFR, BMP #### [address] [address] .GFRon 08-26-2024 Estimated Glomerular Filtration Rate 59 ml/min/1.73sqm Normal [facility] Comment on above: Result [...] A DIFF, CBC, ANEU, GFR, BMP #### [address] [address] .NEUABSon 08-26-2024 Neutrophil, Absolute 4.7 10 3/mcL Normal 2.3-8.1 [facility] Comment on above: Performed By: #### A DIFF, CBC, ANEU, GFR, BMP #### [address] [address] BMPon 08-26-2024 BUN/Creatinine Ratio 35.1 ratio High 10.0-22.0 [facility] Comment on above: Performed By: #### A DIFF, CBC, ANEU, GFR, BMP #### [place] [id number] Calcium [Mass/Vol] 9.8 mg/dL Normal 8.7-10.4 [facility] Comment on above: Performed By: #### A DIFF, CBC, ANEU, GFR, BMP #### [place] [id number] Chloride [Moles/Vol] 98 mmol/L Normal 98-110 [facility] Comment on above: Performed By: #### A DIFF, CBC, ANEU, GFR, BMP #### [place] [address] CO2 [Moles/Vol] 25 mmol/L Normal 22-32 [facility] Comment on above: Performed By: #### A DIFF, CBC, ANEU, GFR, BMP #### [place] [id number] Creatinine [Mass/Vol] 0.97 mg/dL Normal 0.50-1.20 [facility] Comment on above: Result Comment: Test ing performed on Imgur analyzer using enzymatic creatinine methodology. Performed By: #### A DIFF, CBC, ANEU, GFR, BMP #### [place] [id number] Electrolyte Balance 12.0 mEq/L Normal 4.0-15.0 [facility] Comment on above: Performed By: #### A DIFF, CBC, ANEU, GFR, BMP #### [place] [id number] Glucose [Mass/Vol] 160 mg/dL High 82-115 [facility] Comment on above: Performed By: #### A DIFF, CBC, ANEU, GFR, BMP #### [place] [id number] Potassium [Moles/Vol] 4.7 mmol/L Normal 3.5-5.0 [facility] Comment on above: Result Comment: Spec imen slightly hemolyzed. Performed By: #### A DIFF, CBC, ANEU, GFR, BMP #### [place] [id number] Sodium [Moles/Vol] 135 mmol/L Low 136-145 [facility] Comment on above: Performed By: #### A DIFF, CBC, ANEU, GFR, BMP #### [place] [address] Urea nitrogen [Mass/Vol] 34.0 mg/dL High 8.0-22.0 [facility] Comment on above: Performed By: #### A DIFF, CBC, ANEU, GFR, BMP #### [place] [address] CBCon 08-26-2024 Erythrocyte distribution width (RBC) [Ratio] 14.0 % Normal 11.5-15.5 [facility] Comment on above: Performed By: #### A DIFF, CBC, ANEU, GFR, BMP #### [place] [id number] Hematocrit (Bld) [Volume fraction] 41.0 % Normal 34.0-46.0 [facility] Comment on above: Performed By: #### A DIFF, CBC, ANEU, GFR, BMP #### [place] [address] Hgb 13.4 G/dL Normal 12.0-16.0 [facility] Comment on above: Performed By: #### A DIFF, CBC, ANEU, GFR, BMP #### [place] [address] MCH (RBC) [Entitic mass] 30.0 pg Normal 27.0-33.0 [facility] Comment on above: Performed By: #### A DIFF, CBC, ANEU, GFR, BMP #### [address] [address] MCHC 32.7 G/dL Normal 32.0-36.0 [facility] Comment on above: Performed By: #### A DIFF, CBC, ANEU, GFR, BMP #### [address] [address] MCV (RBC) [Entitic vol] 91.9 fL Normal 80.0-99.0 [facility] Comment on above: Performed By: #### A DIFF, CBC, ANEU, GFR, BMP #### [address] [address] Platelet 297 10 3/mcL Normal 150-450 [facility] Comment on above: Performed By: #### A DIFF, CBC, ANEU, GFR, BMP #### [address] [address] Platelet mean volume (Bld) [Entitic vol] 11.0 fL High 6.6-10.5 [facility] Comment on above: Performed By: #### A DIFF, CBC, ANEU, GFR, BMP #### [address] [address] RBC 4.46 10 6/mcL Normal 4.10-5.30 [facility] Comment on above: Performed By: #### A DIFF, CBC, ANEU, GFR, BMP #### [address] [address] WBC 8.3 10 3/mcL Normal 4.5-10.8 [facility] Comment on above: Performed By: #### A DIFF, CBC, ANEU, GFR, BMP #### [address] [address] LABORATORYOrdered By: SYSTEM SYSTEM on 08-26-2024 Basophils [...] 25 mmol/L Normal 22 - 32 mEq/L AH ADM SS Creatinine [Mass/Vol] 0.97 mg/dL Normal 0.50 - 1.20 mg/dL ADM SS Comment on above: Interpretive Data: T esting performed on Imgur analyzer using enzymatic creatinine methodology. Electrolyte Balance [...] 10.5 fL Workflow SS Platelets (Bld) [#/Vol] 297 103/mcL Normal 150 - 450 10^3/mcL AH Workflow SS Potassium [Moles/Vol] 4.7 mmol/L Normal 3.5 - 5.0 mEq/L ADM SS Comment on above: Result Comment: Spec imen slightly hemolyzed. RBC (Bld) [#/Vol] 4.46 106/mcL Normal 4.10 - 5.3 0 10^6/mcL AH Workflow SS Sodium [Moles/Vol] 135 mmol/L Low 136 - 145 mEq/L ADM SS Urea nitrogen [Mass/Vol] 34.0 mg/dL High 8.0 - 22.0 mg/dL ADM SS Urea nitrogen/Creatinine [Mass ratio] 35.1 ratio High 10.0 - 22.0 ratio ADM SS WBC (Bld) [#/Vol] 8.3 103/mcL Normal 4.5 - 10.8 10^3/mcL Workflow SS XR HAND AND WRIST 6 [...] Sign Date: 08/25/2024 2:27:26 PM Ordering Provider: [facility] MAIN XR HUMERUS MINIMUM 2 VIEWS [...] Sign Date: 08/25/2024 2:26:11 PM Ordering Provider: [facility] MAIN XR SHOULDER MINIMUM 2 VIEWS [...] PM Ordering Provider: JACKLYN LINDSEY [facility] MAIN LABORATORYOrdered By: Kala lux on 08-23-2024 Glucose [Mass/Vol] 278 mg/dL [facility] Work Phone: LABORATORYOrdered By: Kala lux on 08-22-2024 Glucose [Mass/Vol] 320 mg/dL [facility] Work Phone: A1Con 08-21-2024 Glucose [Mass/Vol] 194 mg/dL [facility] Comment on above: Result Comment: Nancy mated Average Glucose calculated by equation ((28.7xA1C)-46.7) Estimated average glucose (eAG) is a calculated value from Hemoglobin A1C and is claim representative of the average blood glucose level in the last 2-3 month period. Normal range: less than 114 mg/dL Performed By: #### A 1C #### [place] [address] HbA1c (Bld) [Mass fraction] 8.4 % High 4.0-6.0 [facility] Comment on above: Performed By: #### A 1C #### [place] [address] LABORATORYOrdered By: SYSTEM SYSTEM on 08-21-2024 Glucose [Mass/Vol] 194 mg/dL Invalid Interpretation Code Auto Chem SS Comment on above: Interpretive Data: E stimated average glucose (eAG) is a calculated value from Hemoglobin A1C and is claim representative of the average blood glucose level in the last 2-3 month period. Normal range: less than 114 mg/dL HbA1c (Bld) [Mass fraction] 8.4 % High 4.0 - 6.0 % Auto Chem SS .Auto Diffon 08-20-2024 Basophil, Absolute 0.1 10 3/mcL Normal 0.0-0.3 [facility] Comment on above: Performed By: #### B MP, ADIFF, CBC, GFR, ANEU #### [address] [address] Basophils/100 WBC (Bld) 1.1 % Normal 0.0-2.5 [facility] Comment on above: Performed By: #### B MP, ADIFF, CBC, GFR, ANEU #### [address] [address] Eosinophil, Absolute 0.3 10 3/mcL Normal 0.0-0.7 [facility] Comment on above: Performed By: #### B MP, ADIFF, CBC, GFR, ANEU #### [address] [address] Eosinophils/100 WBC (Bld) 3.6 % Normal 0.0-6.0 [facility] Comment on above: Performed By: #### B MP, ADIFF, CBC, GFR, ANEU #### [address] [address] Lymphocyte, Absolute 1.7 10 3/mcL Normal 0.9-4.3 [facility] Comment on above: Performed By: #### B MP, ADIFF, CBC, GFR, ANEU #### [address] [address] Lymphocytes/100 WBC (Bld) 20.8 % Normal 20.0-40.0 [facility] Comment on above: Performed By: #### B MP, ADIFF, CBC, GFR, ANEU #### [address] [address] Monocyte, Absolute 0.9 10 3/mcL Normal 0.1-1.4 [facility] Comment on above: Performed By: #### B MP, ADIFF, CBC, GFR, ANEU #### [address] [address] Monocytes/100 WBC (Bld) 11.4 % Normal 2.0-13.0 [facility] Comment on above: Performed By: #### B MP, ADIFF, CBC, GFR, ANEU #### [place] [id number] Neutrophils/100 WBC (Bld) 63.1 % Normal 50.0-75.0 [facility] Comment on above: Performed By: #### B MP, ADIFF, CBC, GFR, ANEU #### [address] [address] .GFRon 08-20-2024 Estimated Glomerular Filtration Rate 55 ml/min/1.73sqm Normal [facility] Comment on above: Result [...] A DIFF, CBC, ANEU, GFR, BMP #### [address] [address] .NEUABSon 08-20-2024 Neutrophil, Absolute 5.1 10 3/mcL Normal 2.3-8.1 [facility] Comment on above: Performed By: #### B MP, ADIFF, CBC, GFR, ANEU #### [address] [address] BMPon 08-20-2024 BUN/Creatinine Ratio 29.8 ratio High 10.0-22.0 [facility] Comment on above: Performed By: #### B MP, ADIFF, CBC, GFR, ANEU #### [address] [address] Calcium [Mass/Vol] 9.8 mg/dL Normal 8.7-10.4 [facility] Comment on above: Performed By: #### B MP, ADIFF, CBC, GFR, ANEU #### [address] [address] Chloride [Moles/Vol] 95 mmol/L Low 98-110 [facility] Comment on above: Performed By: #### B MP, ADIFF, CBC, GFR, ANEU #### [address] [address] CO2 [Moles/Vol] 34 mmol/L High 22-32 [facility] Comment on above: Performed By: #### B MP, ADIFF, CBC, GFR, ANEU #### [address] [address] Creatinine [Mass/Vol] 1.04 mg/dL Normal 0.50-1.20 [facility] Comment on above: Result Comment: Test ing performed on Imgur analyzer using enzymatic creatinine methodology. Performed By: #### B MP, ADIFF, CBC, GFR, ANEU #### [address] [address] Electrolyte Balance 5.0 mEq/L Normal 4.0-15.0 [facility] Comment on above: Performed By: #### B MP, ADIFF, CBC, GFR, ANEU #### [address] [address] Glucose [Mass/Vol] 244 mg/dL High 82-115 [facility] Comment on above: Performed By: #### B MP, ADIFF, CBC, GFR, ANEU #### [address] [address] Potassium [Moles/Vol] 4.8 mmol/L Normal 3.5-5.0 [facility] Comment on above: Result Comment: Spec imen slightly hemolyzed. Performed By: #### B MP, ADIFF, CBC, GFR, ANEU #### [address] [address] Sodium [Moles/Vol] 134 mmol/L Low 136-145 [facility] Comment on above: Performed By: #### B MP, ADIFF, CBC, GFR, ANEU #### [address] [address] Urea nitrogen [Mass/Vol] 31.0 mg/dL High 8.0-22.0 [facility] Comment on above: Performed By: #### B MP, ADIFF, CBC, GFR, ANEU #### [place] [address] CBCon 08-20-2024 Erythrocyte distribution width (RBC) [Ratio] 14.0 % Normal 11.5-15.5 [facility] Comment on above: Performed By: #### B MP, ADIFF, CBC, GFR, ANEU #### [place] [address] Hematocrit (Bld) [Volume fraction] 41.9 % Normal 34.0-46.0 [facility] Comment on above: Performed By: #### B MP, ADIFF, CBC, GFR, ANEU #### [place] [address] Hgb 13.6 G/dL Normal 12.0-16.0 [facility] Comment on above: Performed By: #### B MP, ADIFF, CBC, GFR, ANEU #### [place] [address] MCH (RBC) [Entitic mass] 29.7 pg Normal 27.0-33.0 [facility] Comment on above: Performed By: #### B MP, ADIFF, CBC, GFR, ANEU #### [place] [address] MCHC 32.4 G/dL Normal 32.0-36.0 [facility] Comment on above: Performed By: #### B MP, ADIFF, CBC, GFR, ANEU #### [place] [address] MCV (RBC) [Entitic vol] 91.5 fL Normal 80.0-99.0 [facility] Comment on above: Performed By: #### B MP, ADIFF, CBC, GFR, ANEU #### [place] [address] Platelet 301 10 3/mcL Normal 150-450 [facility] Comment on above: Performed By: #### B MP, ADIFF, CBC, GFR, ANEU #### [place] [address] Platelet mean volume (Bld) [Entitic vol] 11.0 fL High 6.6-10.5 [facility] Comment on above: Performed By: #### B MP, ADIFF, CBC, GFR, ANEU #### [address] [address] RBC 4.58 10 6/mcL Normal 4.10-5.30 [facility] Comment on above: Performed By: #### B MP, ADIFF, CBC, GFR, ANEU #### [address] [address] WBC 8.1 10 3/mcL Normal 4.5-10.8 [facility] Comment on above: Performed By: #### B MP, ADIFF, CBC, GFR, ANEU #### [address] [address] LABORATORYOrdered By: SYSTEM SYSTEM on 08-20-2024 Basophils [...] above: Interpretive Data: T esting performed on Imgur analyzer using enzymatic creatinine methodology. Electrolyte Balance [...] 08/18/2024 3:14:15 PM Ordering Provider: NANDO Anderson [facility] .Auto Diffon 08-16-2024 Basophil, Absolute 0.1 10 3/mcL Normal 0.0-0.3 [facility] Comment on above: Performed By: #### A DIFF, CBC, ANEU, GFR, BMP #### [facility] [address] [place] [address] Basophils/100 WBC (Bld) 0.7 % Normal 0.0-2.5 [facility] Comment on above: Performed By: #### A DIFF, CBC, ANEU, GFR, BMP #### [address] [address] Eosinophil, Absolute 0.3 10 3/mcL Normal 0.0-0.7 [facility] Comment on above: Performed By: #### A DIFF, CBC, ANEU, GFR, BMP #### [address] [address] Eosinophils/100 WBC (Bld) 2.1 % Normal 0.0-6.0 [facility] Comment on above: Performed By: #### A DIFF, CBC, ANEU, GFR, BMP #### [address] [address] Lymphocyte, Absolute 1.9 10 3/mcL Normal 0.9-4.3 [facility] Comment on above: Performed By: #### A DIFF, CBC, ANEU, GFR, BMP #### [address] [address] Lymphocytes/100 WBC (Bld) 14.8 % Low 20.0-40.0 [facility] Comment on above: Performed By: #### A DIFF, CBC, ANEU, GFR, BMP #### [address] [address] Monocyte, Absolute 1.2 10 3/mcL Normal 0.1-1.4 [facility] Comment on above: Performed By: #### A DIFF, CBC, ANEU, GFR, BMP #### [address] [address] Monocytes/100 WBC (Bld) 9.8 % Normal 2.0-13.0 [facility] Comment on above: Performed By: #### A DIFF, CBC, ANEU, GFR, BMP #### [address] [address] Neutrophils/100 WBC (Bld) 72.6 % Normal 50.0-75.0 [facility] Comment on above: Performed By: #### A DIFF, CBC, ANEU, GFR, BMP #### [address] [address] .GFRon 08-16-2024 Estimated Glomerular Filtration Rate 58 ml/min/1.73sqm Normal [facility] Comment on above: Result [...] A DIFF, CBC, ANEU, GFR, BMP #### [address] [address] .NEUABSon 08-16-2024 Neutrophil, Absolute 9.2 10 3/mcL High 2.3-8.1 [facility] Comment on above: Performed By: #### A DIFF, CBC, ANEU, GFR, BMP #### [address] [address] BMPon 08-16-2024 BUN/Creatinine Ratio 34.3 ratio High 10.0-22.0 [facility] Comment on above: Performed By: #### A DIFF, CBC, ANEU, GFR, BMP #### [address] [address] Calcium [Mass/Vol] 9.0 mg/dL Normal 8.7-10.4 [facility] Comment on above: Performed By: #### A DIFF, CBC, ANEU, GFR, BMP #### [address] [address] Chloride [Moles/Vol] 100 mmol/L Normal 98-110 [facility] Comment on above: Performed By: #### A DIFF, CBC, ANEU, GFR, BMP #### [address] [address] CO2 [Moles/Vol] 30 mmol/L Normal 22-32 [facility] Comment on above: Performed By: #### A DIFF, CBC, ANEU, GFR, BMP #### [place] [id number] Creatinine [Mass/Vol] 0.99 mg/dL Normal 0.50-1.20 [facility] Comment on above: Result Comment: Test ing performed on Imgur analyzer using enzymatic creatinine methodology. Performed By: #### A DIFF, CBC, ANEU, GFR, BMP #### [place] [id number] Electrolyte Balance 5.0 mEq/L Normal 4.0-15.0 [facility] Comment on above: Performed By: #### A DIFF, CBC, ANEU, GFR, BMP #### [place] [id number] Glucose [Mass/Vol] 259 mg/dL High 82-115 [facility] Comment on above: Performed By: #### A DIFF, CBC, ANEU, GFR, BMP #### [place] [address] Potassium [Moles/Vol] 5.0 mmol/L Normal 3.5-5.0 [facility] Comment on above: Performed By: #### A DIFF, CBC, ANEU, GFR, BMP #### [place] [address] Sodium [Moles/Vol] 135 mmol/L Low 136-145 [facility] Comment on above: Performed By: #### A DIFF, CBC, ANEU, GFR, BMP #### [place] [id number] Urea nitrogen [Mass/Vol] 34.0 mg/dL High 8.0-22.0 [facility] Comment on above: Performed By: #### A DIFF, CBC, ANEU, GFR, BMP #### [place] [id number] CBCon 08-16-2024 Erythrocyte distribution width (RBC) [Ratio] 13.7 % Normal 11.5-15.5 [facility] Comment on above: Performed By: #### A DIFF, CBC, ANEU, GFR, BMP #### [place] [id number] Hematocrit (Bld) [Volume fraction] 43.3 % Normal 34.0-46.0 [facility] Comment on above: Performed By: #### A DIFF, CBC, ANEU, GFR, BMP #### [place] [address] Hgb 13.9 G/dL Normal 12.0-16.0 [facility] Comment on above: Performed By: #### A DIFF, CBC, ANEU, GFR, BMP #### [place] [address] MCH (RBC) [Entitic mass] 30.0 pg Normal 27.0-33.0 [facility] Comment on above: Performed By: #### A DIFF, CBC, ANEU, GFR, BMP #### [place] [address] MCHC 32.1 G/dL Normal 32.0-36.0 [facility] Comment on above: Performed By: #### A DIFF, CBC, ANEU, GFR, BMP #### [place] [address] MCV (RBC) [Entitic vol] 93.6 fL Normal 80.0-99.0 [facility] Comment on above: Performed By: #### A DIFF, CBC, ANEU, GFR, BMP #### [place] [address] Platelet 230 10 3/mcL Normal 150-450 [facility] Comment on above: Performed By: #### A DIFF, CBC, ANEU, GFR, BMP #### [place] [address] Platelet mean volume (Bld) [Entitic vol] 10.7 fL High 6.6-10.5 [facility] Comment on above: Performed By: #### A DIFF, CBC, ANEU, GFR, BMP #### [place] [address] RBC 4.63 10 6/mcL Normal 4.10-5.30 [facility] Comment on above: Performed By: #### A DIFF, CBC, ANEU, GFR, BMP #### [place] [address] WBC 12.7 10 3/mcL High 4.5-10.8 [facility] Comment on above: Performed By: #### A DIFF, CBC, ANEU, GFR, BMP #### [facility] [address] [place] [address] LABORATORYOrdered By: Marily Panda on 08-16-2024 Blood Glucose Interventions Administered agent to decrease blood sugar (08/16/24 12:23 PM) [facility] Work Phone: Blood Glucose Interventions Retest (08/16/24 10:15 AM) [facility] Work Phone: Bacteria identified Cx Nom ( Bld)on 08-15-2024 Bacteria identified Cx Nom (Unsp spec) NO GROWTH DAY 5 OF [facility] CARDIAC RHYTHMon 08-15-2024 [facility] CBC,PLATELETSon 08-15-2024 Erythrocyte distribution width (RBC) [Ratio] 13.4 % 10.8 - 14.9 % [facility] Hematocrit (Bld) [Volume fraction] 43.8 % 34.9 - 44.3 % [facility] Hemoglobin (Bld) [Mass/Vol] 13.5 g/dL 11.4 - 15.2 g/dL [facility] Interpretation and review of laboratory results Abnormal [facility] MCH (RBC) [Entitic mass] 28.9 pg 25.9 - 33.9 pg [facility] MCHC (RBC) [Mass/Vol] 30.8 g/dL Low 31.4 - 35.9 g/dL [facility] MCV (RBC) [Entitic vol] 93.8 fL 79.6 - 97.7 fL [facility] Platelet mean volume (Bld) [Entitic vol] 12 fL 8.5 - 12.2 fL [facility] Platelets (Bld) [#/Vol] 252 10*3/uL 150 - 393 K/uL [facility] RBC (Bld) [#/Vol] 4.67 10*6/uL [facility] WBC (Bld) [#/Vol] 11.94 10*3/uL High 3.99 - 11.19 K/uL [facility] Hematocrit (Bld) [Volume fraction] 43.8 % Normal 34.9-44.3 [facility] Comment on above: Performed By: #### X M #### [facility] (DEFAULT) [address] [address] Hemoglobin (Bld) [Mass/Vol] 13.5 g/dL Normal 11.4-15.2 [facility] Comment on above: Performed By: #### X M #### [facility] (DEFAULT) [address] [address] MCV (RBC) [Entitic vol] 93.8 fL Normal 79.6-97.7 [facility] Comment on above: Performed By: #### X M #### [facility] (DEFAULT) [address] [address] Mean Cell Hgb 28.9 pg Normal 25.9-33.9 [facility] Comment on above: Performed By: #### X M #### [facility] (DEFAULT) [address] [address] Mean Cell Hgb Conc 30.8 g/dL Low 31.4-35.9 [facility] Comment on above: Performed By: #### X M #### [facility] (DEFAULT) [address] [address] Platelet mean volume (Bld) [Entitic vol] 12.0 fL Normal 8.5-12.2 [facility] Comment on above: Performed By: #### X M #### [facility] (DEFAULT) [address] [address] Platelets (Bld) [#/Vol] 252 10*3/uL Normal 150-393 [facility] Comment on above: Performed By: #### X M #### [facility] (DEFAULT) [address] [place] [address] RBC (Bld) [#/Vol] 4.67 10*6/uL Normal 3.91-5.04 [facility] Comment on above: Performed By: #### X M #### [facility] (DEFAULT) [address] [place] [address] RBC Distribution 13.4 % Normal 10.8-14.9 [facility] Comment on above: Performed By: #### X M #### [facility] (DEFAULT) [address] [place] [address] WBC (Bld) [#/Vol] 11.94 10*3/uL High 3.99-11.19 [facility] Comment on above: Performed By: #### X M #### [facility] (DEFAULT) [address] [place] [address] CHEM 7 (LYTES,BUN,CREA,GLUC) on 08-15-2024 Anion gap [Moles/Vol] 16 mmol/L 7 - 17 mmol/L [facility] Chloride [Moles/Vol] 99 mmol/L 98 - 10 8 mmol/L [facility] CO2 [Moles/Vol] 25 mmol/L 21 - 31 mmol/L [facility] Creatinine [Mass/Vol] 1.27 mg/dL High 0.50 - 1.20 mg/dL [facility] eGFR, CKD-EPI, Female 43 Low - PINF [facility] Glucose [Mass/Vol] 214 mg/dL High 70 - 179 mg/dL [facility] Interpretation and review of laboratory results Abnormal [facility] Osmolality Calc [Osmolality] 306 High [facility] Potassium [Moles/Vol] 4.8 mmol/L 3.5 - 5.0 mmol/L [facility] Sodium [Moles/Vol] 135 mmol/L 135 - 145 mmol/L [facility] Urea nitrogen [Mass/Vol] 51 mg/dL High 7 - 25 mg/dL [facility] Urea nitrogen/Creatinine [Mass ratio] 40 mg/mg [facility] Anion gap [Moles/Vol] 16 mmol/L Normal 7-17 [facility] Comment on above: Performed By: #### [facility] [place] #### [facility] (DEFAULT) [address] [place] [address] Chloride [Moles/Vol] 99 mmol/L Normal 98-108 [facility] Comment on above: Performed By: #### H EMO #### [facility] (DEFAULT) [address] [place] [address] CO2 [Moles/Vol] 25 mmol/L Normal 21-31 [facility] Comment on above: Performed By: #### H [facility] [place] #### [facility] (DEFAULT) [address] [address] Creatinine [Mass/Vol] 1.27 mg/dL High 0.50-1.20 [facility] Comment on above: Performed By: #### H [facility] [place] #### [facility] (DEFAULT) [address] [place] [address] GFR/1.73 sq M.predicted among non-blacks MDRD (S/P/Bld) [Vol rate/Area] 43 mL/min/{1.73_m2} Low >=60 [facility] Comment on above: Result Comment: Repo rted eGFR is based on the CKD-EPI 2020 equation using creatinine, age, and sex. Performed By: #### H [facility] [place] #### [facility] (DEFAULT) [address] [place] [address] Glucose [Mass/Vol] 214 mg/dL High Nonfastin -179 mg/dL; Fastin-99 [facility] Comment on above: Performed By: #### H EMOGC #### [facility] (DEFAULT) [address] [place] [address] Osmolality [Osmolality] 306 mosm/kg High 278-305 [facility] Comment on above: Performed By: #### H EMOGC #### [facility] (DEFAULT) [address] [place] [address] Potassium [Moles/Vol] 4.8 mmol/L Normal 3.5-5.0 [facility] Comment on above: Performed By: #### H EMOGC #### [facility] (DEFAULT) [address] [place] [address] Sodium [Moles/Vol] 135 mmol/L Normal 135-145 [facility] Comment on above: Performed By: #### H EMOGC #### [facility] (DEFAULT) [address] [place] [address] Urea nitrogen [Mass/Vol] 51 mg/dL High 7-25 [facility] Comment on above: Performed By: #### H EMOGC #### [facility] (DEFAULT) [address] [place] [address] Urea nitrogen/Creatinine [Mass ratio] 40 mg/mg Normal [facility] Comment on above: Performed By: #### H EMOGC #### [facility] (DEFAULT) [address] [place] [address] GLUCOSE POCon 08-15-2024 Glucose [Mass/Vol] 190 mg/dL High 70 - 179 mg/dL [facility] Interpretation and review of laboratory results Abnormal [facility] POC Sample Type CAPBL [facility] Glucose [Mass/Vol] 146 mg/dL 70 - 179 mg/dL [facility] POC Sample Type CAPBL [facility] Glucose [Mass/Vol] 215 mg/dL High 70 - 179 mg/dL [facility] Interpretation and review of laboratory results Abnormal [facility] POC Sample Type CAPBL [facility] MAGNESIUMon 08-15-2024 Interpretation and review of laboratory results Normal [facility] Magnesium [Mass/Vol] 1.6 mg/dL 1.6 - 2 .6 mg/dL [facility] Magnesium [Mass/Vol] 1.6 mg/dL Normal 1.6-2.6 [facility] Comment on above: Performed By: #### H [facility] [place] #### [facility] (DEFAULT) [address] [place] [address] No Panel Informationon 08-15 [facility] CBC,PLATELETSon 08-14-2024 Erythrocyte distribution width (RBC) [Ratio] 13.4 % 10.8 - 14.9 % [facility] Hematocrit (Bld) [Volume fraction] 47.9 % High 34.9 - 44.3 % [facility] Hemoglobin (Bld) [Mass/Vol] 14.3 g/dL 11.4 - 15.2 g/dL [facility] Interpretation and review of laboratory results Abnormal [facility] MCH (RBC) [Entitic mass] 29.3 pg 25.9 - 33.9 pg [facility] MCHC (RBC) [Mass/Vol] 29.9 g/dL Low 31.4 - 35.9 g/dL [facility] MCV (RBC) [Entitic vol] 98.2 fL High 79.6 - 97.7 fL [facility] Platelet mean volume (Bld) [Entitic vol] 11.3 fL 8.5 - 12.2 fL [facility] Platelets (Bld) [#/Vol] 229 10*3/uL 150 - 393 K/uL [facility] RBC (Bld) [#/Vol] 4.88 10*6/uL [facility] WBC (Bld) [#/Vol] 12.14 10*3/uL High 3.99 - 11.19 K/uL [facility] Hematocrit (Bld) [Volume fraction] 47.9 % High 34.9-44.3 [facility] Comment on above: Performed By: #### X M #### [facility] (DEFAULT) [address] [place] [address] Hemoglobin (Bld) [Mass/Vol] 14.3 g/dL Normal 11.4-15.2 [facility] Comment on above: Performed By: #### X M #### [facility] (DEFAULT) [address] [place] [address] MCV (RBC) [Entitic vol] 98.2 fL High 79.6-97.7 [facility] Comment on above: Performed By: #### X M #### [facility] (DEFAULT) [address] [place] [address] Mean Cell Hgb 29.3 pg Normal 25.9-33.9 [facility] Comment on above: Performed By: #### X M #### [facility] (DEFAULT) [address] [place] [address] Mean Cell Hgb Conc 29.9 g/dL Low 31.4-35.9 [facility] Comment on above: Performed By: #### X M #### [facility] (DEFAULT) [address] [place] [address] Platelet mean volume (Bld) [Entitic vol] 11.3 fL Normal 8.5-12.2 [facility] Comment on above: Performed By: #### X M #### [facility] (DEFAULT) [address] [place] [address] Platelets (Bld) [#/Vol] 229 10*3/uL Normal 150-393 [facility] Comment on above: Performed By: #### X M #### [facility] (DEFAULT) [address] [place] [address] RBC (Bld) [#/Vol] 4.88 10*6/uL Normal 3.91-5.04 [facility] Comment on above: Performed By: #### X M #### [facility] (DEFAULT) [address] [place] [address] RBC Distribution 13.4 % Normal 10.8-14.9 [facility] Comment on above: Performed By: #### X M #### [facility] (DEFAULT) [address] [place] [address] WBC (Bld) [#/Vol] 12.14 10*3/uL High 3.99-11.19 [facility] Comment on above: Performed By: #### X M #### [facility] (DEFAULT) [address] [place] [address] CHEM 7 (LYTES,BUN,CREA,GLUC) on 08-14-2024 Anion gap [Moles/Vol] 16 mmol/L 7 - 17 mmol/L [facility] Chloride [Moles/Vol] 101 mmol/L 98 - 10 8 mmol/L [facility] CO2 [Moles/Vol] 23 mmol/L 21 - 31 mmol/L [facility] Creatinine [Mass/Vol] 1.15 mg/dL 0.50 - 1.20 mg/dL [facility] eGFR, CKD-EPI, Female 48 Low - PINF [facility] Glucose [Mass/Vol] 208 mg/dL High 70 - 179 mg/dL [facility] Interpretation and review of laboratory results Abnormal [facility] Osmolality Calc [Osmolality] 304 [facility] Potassium [Moles/Vol] 4.7 mmol/L 3.5 - 5.0 mmol/L [facility] Sodium [Moles/Vol] 135 mmol/L 135 - 145 mmol/L [facility] Urea nitrogen [Mass/Vol] 47 mg/dL High 7 - 25 mg/dL [facility] Urea nitrogen/Creatinine [Mass ratio] 41 mg/mg [facility] Anion gap [Moles/Vol] 16 mmol/L Normal 7-17 [facility] Comment on above: Performed By: #### B LDCULT #### [facility] (DEFAULT) [address] [place] [address] Chloride [Moles/Vol] 101 mmol/L Normal 98-108 [facility] Comment on above: Performed By: #### B LDCULT #### [facility] (DEFAULT) [address] [place] [address] CO2 [Moles/Vol] 23 mmol/L Normal 21-31 [facility] Comment on above: Performed By: #### B LDCULT #### [facility] (DEFAULT) [address] [place] [address] Creatinine [Mass/Vol] 1.15 mg/dL Normal 0.50-1.20 [facility] Comment on above: Performed By: #### B LDCULT #### [facility] (DEFAULT) [address] [place] [address] GFR/1.73 sq M.predicted among non-blacks MDRD (S/P/Bld) [Vol rate/Area] 48 mL/min/{1.73_m2} Low >=60 [facility] Comment on above: Result Comment: Repo rted eGFR is based on the CKD-EPI 2020 equation using creatinine, age, and sex. Performed By: #### B LDCULT #### [facility] (DEFAULT) [address] [place] [address] Glucose [Mass/Vol] 208 mg/dL High Nonfastin -179 mg/dL; Fastin-99 [facility] Comment on above: Performed By: #### B LDCULT #### [facility] (DEFAULT) [address] [place] [address]871 Osmolality [Osmolality] 304 mosm/kg Normal 278-305 [facility] Comment on above: Performed By: #### B LDCULT #### [facility] (DEFAULT) [address] [place] [address] 16566 Potassium [Moles/Vol] 4.7 mmol/L Normal 3.5-5.0 [facility] Comment on above: Performed By: #### B LDCULT #### [facility] (DEFAULT) [address] [place] [address] 07207 Sodium [Moles/Vol] 135 mmol/L Normal 135-145 [facility] Comment on above: Performed By: #### B LDCULT #### [facility] (DEFAULT) [address] [place] [address] Urea nitrogen [Mass/Vol] 47 mg/dL High 7-25 [facility] Comment on above: Performed By: #### B LDCULT #### [facility] (DEFAULT) [address] [place] [address] Urea nitrogen/Creatinine [Mass ratio] 41 mg/mg Normal [facility] Comment on above: Performed By: #### B LDCULT #### [facility] (DEFAULT) [address] [place] [address] 68304 GLUCOSE POCon 08-14-2024 Glucose [Mass/Vol] 204 mg/dL High 70 - 179 mg/dL [facility] Interpretation and review of laboratory results Abnormal [facility] POC Sample Type CAPBL [facility] Glucose [Mass/Vol] 264 mg/dL High 70 - 179 mg/dL [facility] Interpretation and review of laboratory results Abnormal [facility] POC Sample Type CAPBL [facility] Glucose [Mass/Vol] 189 mg/dL High 70 - 179 mg/dL [facility] Interpretation and review of laboratory results Abnormal [facility] POC Sample Type CAPBL [facility] MAGNESIUMon 08-14-2024 Interpretation and review of laboratory results Normal [facility] Magnesium [Mass/Vol] 1.6 mg/dL 1.6 - 2 .6 mg/dL [facility] Magnesium [Mass/Vol] 1.6 mg/dL Normal 1.6-2.6 [facility] Comment on above: Performed By: #### B LDCULT #### [facility] (DEFAULT) [address] [place] [address] No Panel Informationon 08-14 [facility] CBC,PLATELETSon 08-13-2024 Erythrocyte distribution width (RBC) [Ratio] 13.4 % 10.8 - 14.9 % [facility] Hematocrit (Bld) [Volume fraction] 45.7 % High 34.9 - 44.3 % [facility] Hemoglobin (Bld) [Mass/Vol] 14.3 g/dL 11.4 - 15.2 g/dL [facility] Interpretation and review of laboratory results Abnormal [facility] MCH (RBC) [Entitic mass] 29.5 pg 25.9 - 33.9 pg [facility] MCHC (RBC) [Mass/Vol] 31.3 g/dL Low 31.4 - 35.9 g/dL [facility] MCV (RBC) [Entitic vol] 94.2 fL 79.6 - 97.7 fL [facility] Platelet mean volume (Bld) [Entitic vol] 11.7 fL 8.5 - 12.2 fL [facility] Platelets (Bld) [#/Vol] 245 10*3/uL 150 - 393 K/uL [facility] RBC (Bld) [#/Vol] 4.85 10*6/uL [facility] WBC (Bld) [#/Vol] 12.02 10*3/uL High 3.99 - 11.19 K/uL [facility] Hematocrit (Bld) [Volume fraction] 45.7 % High 34.9-44.3 [facility] Comment on above: Performed By: #### [facility] [place] #### [facility] (DEFAULT) [address] [place] [address] 26650 Hemoglobin (Bld) [Mass/Vol] 14.3 g/dL Normal 11.4-15.2 [facility] Comment on above: Performed By: #### H [facility] [place] #### [facility] (DEFAULT) [address] [place] [address] 00713 MCV (RBC) [Entitic vol] 94.2 fL Normal 79.6-97.7 [facility] Comment on above: Performed By: #### H EMOGC #### [facility] (DEFAULT) [address] [address] Mean Cell Hgb 29.5 pg Normal 25.9-33.9 [facility] Comment on above: Performed By: #### H EMOGC #### [facility] (DEFAULT) [address] [address] Mean Cell Hgb Conc 31.3 g/dL Low 31.4-35.9 [facility] Comment on above: Performed By: #### H EMOGC #### [facility] (DEFAULT) [address] [address] Platelet mean volume (Bld) [Entitic vol] 11.7 fL Normal 8.5-12.2 [facility] Comment on above: Performed By: #### H EMOGC #### [facility] (DEFAULT) [address] [address] Platelets (Bld) [#/Vol] 245 10*3/uL Normal 150-393 [facility] Comment on above: Performed By: #### H EMOGC #### [facility] (DEFAULT) [address] [address] RBC (Bld) [#/Vol] 4.85 10*6/uL Normal 3.91-5.04 [facility] Comment on above: Performed By: #### H EMOGC #### [facility] (DEFAULT) [address] [address] RBC Distribution 13.4 % Normal 10.8-14.9 [facility] Comment on above: Performed By: #### H EMOGC #### [facility] (DEFAULT) [address] [address] WBC (Bld) [#/Vol] 12.02 10*3/uL High 3.99-11.19 [facility] Comment on above: Performed By: #### H [facility] [place] #### [facility] (DEFAULT) [address] [place] [address] CHEM 7 (LYTES,BUN,CREA,GLUC) on 08-13-2024 Anion gap [Moles/Vol] 15 mmol/L 7 - 17 mmol/L [facility] Chloride [Moles/Vol] 104 mmol/L 98 - 10 8 mmol/L [facility] CO2 [Moles/Vol] 23 mmol/L 21 - 31 mmol/L [facility] Creatinine [Mass/Vol] 1.18 mg/dL 0.50 - 1.20 mg/dL [facility] eGFR, CKD-EPI, Female 47 Low - PINF [facility] Glucose [Mass/Vol] 225 mg/dL High 70 - 179 mg/dL [facility] Interpretation and review of laboratory results Abnormal [facility] Osmolality Calc [Osmolality] 311 High [facility] Potassium [Moles/Vol] 4.6 mmol/L 3.5 - 5.0 mmol/L [facility] Sodium [Moles/Vol] 137 mmol/L 135 - 145 mmol/L [facility] Urea nitrogen [Mass/Vol] 55 mg/dL High 7 - 25 mg/dL [facility] Urea nitrogen/Creatinine [Mass ratio] 47 mg/mg [facility] Anion gap [Moles/Vol] 15 mmol/L Normal 7-17 [facility] Comment on above: Performed By: #### H [facility] [place] #### [facility] (DEFAULT) [address] [place] [address] Chloride [Moles/Vol] 104 mmol/L Normal 98-108 [facility] Comment on above: Performed By: #### H [facility] [place] #### [facility] (DEFAULT) [address] [place] [address] CO2 [Moles/Vol] 23 mmol/L Normal 21-31 [facility] Comment on above: Performed By: #### H [facility] [place] #### [facility] (DEFAULT) [address] [place] [address] 16616 Creatinine [Mass/Vol] 1.18 mg/dL Normal 0.50-1.20 [facility] Comment on above: Performed By: #### H EMO #### [facility] (DEFAULT) [address] [place] [address] 11956 GFR/1.73 sq M.predicted among non-blacks MDRD (S/P/Bld) [Vol rate/Area] 47 mL/min/{1.73_m2} Low >=60 [facility] Comment on above: Result Comment: Repo rted eGFR is based on the CKD-EPI 2020 equation using creatinine, age, and sex. Performed By: #### H EMO #### [facility] (DEFAULT) [address] [place] [address]23 Glucose [Mass/Vol] 225 mg/dL High Nonfastin -179 mg/dL; Fastin-99 [facility] Comment on above: Performed By: #### H EMOGC #### [facility] (DEFAULT) [address] [place] [address] 32517 Osmolality [Osmolality] 311 mosm/kg High 278-305 [facility] Comment on above: Performed By: #### H EMOGC #### [facility] (DEFAULT) [address] [place] [address] 92632 Potassium [Moles/Vol] 4.6 mmol/L Normal 3.5-5.0 [facility] Comment on above: Performed By: #### H EMOGC #### [facility] (DEFAULT) [address] [place] [address] 21680 Sodium [Moles/Vol] 137 mmol/L Normal 135-145 [facility] Comment on above: Performed By: #### H EMOGC #### [facility] (DEFAULT) [address] [place] [address] 35682 Urea nitrogen [Mass/Vol] 55 mg/dL High 7-25 [facility] Comment on above: Performed By: #### H [facility] [place] #### [facility] (DEFAULT) [address] [place] [address] Urea nitrogen/Creatinine [Mass ratio] 47 mg/mg Normal [facility] Comment on above: Performed By: #### H [facility] [place] #### [facility] (DEFAULT) [address] [place] [address] GLUCOSE POCon 08-13-2024 Glucose [Mass/Vol] 195 mg/dL High 70 - 179 mg/dL [facility] Interpretation and review of laboratory results Abnormal [facility] POC Sample Type CAPBL [facility] Glucose [Mass/Vol] 198 mg/dL High 70 - 179 mg/dL [facility] Interpretation and review of laboratory results Abnormal [facility] POC Sample Type [facility] Glucose [Mass/Vol] 158 mg/dL 70 - 179 mg/dL [facility] POC Sample Type CAPBL [facility] Glucose [Mass/Vol] 211 mg/dL High 70 - 179 mg/dL [facility] Interpretation and review of laboratory results Abnormal [facility] POC Sample Type CAPBL [facility] Glucose [Mass/Vol] 240 mg/dL High 70 - 179 mg/dL [facility] Interpretation and review of laboratory results Abnormal [facility] POC Sample Type CAPBL [facility] MAGNESIUMon 08-13-2024 Interpretation and review of laboratory results Normal [facility] Magnesium [Mass/Vol] 1.8 mg/dL 1.6 - 2 .6 mg/dL [facility] Magnesium [Mass/Vol] 1.8 mg/dL Normal 1.6-2.6 [facility] Comment on above: Performed By: #### H [facility] [place] #### [facility] (DEFAULT) [address] [place] [address] No Panel Informationon 08-13 [facility] CBC,PLATELETSon 08-12-2024 Erythrocyte distribution width (RBC) [Ratio] 13.6 % 10.8 - 14.9 % [facility] Hematocrit (Bld) [Volume fraction] 45.1 % High 34.9 - 44.3 % [facility] Hemoglobin (Bld) [Mass/Vol] 14.3 g/dL 11.4 - 15.2 g/dL [facility] Interpretation and review of laboratory results Abnormal [facility] MCH (RBC) [Entitic mass] 29.7 pg 25.9 - 33.9 pg [facility] MCHC (RBC) [Mass/Vol] 31.7 g/dL 31.4 - 35.9 g/dL [facility] MCV (RBC) [Entitic vol] 93.6 fL 79.6 - 97.7 fL [facility] Platelet mean volume (Bld) [Entitic vol] 11.4 fL 8.5 - 12.2 fL [facility] Platelets (Bld) [#/Vol] 241 10*3/uL 150 - 393 K/uL [facility] RBC (Bld) [#/Vol] 4.82 10*6/uL [facility] WBC (Bld) [#/Vol] 14.32 10*3/uL High 3.99 - 11.19 K/uL [facility] Hematocrit (Bld) [Volume fraction] 45.1 % High 34.9-44.3 [facility] Comment on above: Performed By: #### H [facility] [place] #### [facility] (DEFAULT) [address] [place] [address] 05559 Hemoglobin (Bld) [Mass/Vol] 14.3 g/dL Normal 11.4-15.2 [facility] Comment on above: Performed By: #### H [facility] [place] #### [facility] (DEFAULT) [address] [place] [address] 20114 MCV (RBC) [Entitic vol] 93.6 fL Normal 79.6-97.7 [facility] Comment on above: Performed By: #### H EMOGC #### [facility] (DEFAULT) [address] [place] [address] 03466 Mean Cell Hgb 29.7 pg Normal 25.9-33.9 [facility] Comment on above: Performed By: #### H EMOGC #### [facility] (DEFAULT) [address] [place] [address] 88748 Mean Cell Hgb Conc 31.7 g/dL Normal 31.4-35.9 [facility] Comment on above: Performed By: #### H EMOGC #### [facility] (DEFAULT) [address] [place] [address] 23746 Platelet mean volume (Bld) [Entitic vol] 11.4 fL Normal 8.5-12.2 [facility] Comment on above: Performed By: #### H EMOGC #### [facility] (DEFAULT) [address] [place] [address] 85667 Platelets (Bld) [#/Vol] 241 10*3/uL Normal 150-393 [facility] Comment on above: Performed By: #### H EMOGC #### [facility] (DEFAULT) [address] [place] [address] 70778 RBC (Bld) [#/Vol] 4.82 10*6/uL Normal 3.91-5.04 [facility] Comment on above: Performed By: #### H EMOGC #### [facility] (DEFAULT) [address] [place] [address] 76559 RBC Distribution 13.6 % Normal 10.8-14.9 [facility] Comment on above: Performed By: #### H EMOGC #### [facility] (DEFAULT) [address] [place] [address] 98416 WBC (Bld) [#/Vol] 14.32 10*3/uL High 3.99-11.19 [facility] Comment on above: Performed By: #### H [facility] [place] #### [facility] (DEFAULT) [address] [place] [address] CHEM 7 (LYTES,BUN,CREA,GLUC) on 08-12-2024 Anion gap [Moles/Vol] 15 mmol/L 7 - 17 mmol/L [facility] Chloride [Moles/Vol] 104 mmol/L 98 - 10 8 mmol/L [facility] CO2 [Moles/Vol] 27 mmol/L 21 - 31 mmol/L [facility] Creatinine [Mass/Vol] 1.36 mg/dL High 0.50 - 1.20 mg/dL [facility] eGFR, CKD-EPI, Female 40 Low - PINF [facility] Glucose [Mass/Vol] 126 mg/dL 70 - 179 mg/dL [facility] Interpretation and review of laboratory results Abnormal [facility] Osmolality Calc [Osmolality] 313 High [facility] Potassium [Moles/Vol] 4.5 mmol/L 3.5 - 5.0 mmol/L [facility] Sodium [Moles/Vol] 141 mmol/L 135 - 145 mmol/L [facility] Urea nitrogen [Mass/Vol] 56 mg/dL High 7 - 25 mg/dL [facility] Urea nitrogen/Creatinine [Mass ratio] 41 mg/mg [facility] Anion gap [Moles/Vol] 15 mmol/L Normal 7-17 [facility] Comment on above: Performed By: #### T YPEC #### [facility] (DEFAULT) [address] [place] [address] Chloride [Moles/Vol] 104 mmol/L Normal 98-108 [facility] Comment on above: Performed By: #### T YPEC #### [facility] (DEFAULT) [address] [place] [address] CO2 [Moles/Vol] 27 mmol/L Normal 21-31 [facility] Comment on above: Performed By: #### T YPEC #### [facility] (DEFAULT) [address] [place] [address]19 Creatinine [Mass/Vol] 1.36 mg/dL High 0.50-1.20 [facility] Comment on above: Performed By: #### T YPEC #### [facility] (DEFAULT) [address] [address] GFR/1.73 sq M.predicted among non-blacks MDRD (S/P/Bld) [Vol rate/Area] 40 mL/min/{1.73_m2} Low >=60 [facility] Comment on above: Result Comment: Repo rted eGFR is based on the CKD-EPI 2020 equation using creatinine, age, and sex. Performed By: #### T YPEC #### [facility] (DEFAULT) [address] [address] Glucose [Mass/Vol] 126 mg/dL Normal Nonfastin -179 mg/dL; Fastin-99 [facility] Comment on above: Performed By: #### T YPEC #### [facility] (DEFAULT) [address] [address] Osmolality [Osmolality] 313 mosm/kg High 278-305 [facility] Comment on above: Performed By: #### T YPEC #### [facility] (DEFAULT) [address] [address] Potassium [Moles/Vol] 4.5 mmol/L Normal 3.5-5.0 [facility] Comment on above: Performed By: #### T YPEC #### [facility] (DEFAULT) [address] [address] Sodium [Moles/Vol] 141 mmol/L Normal 135-145 [facility] Comment on above: Performed By: #### T YPEC #### [facility] (DEFAULT) [address] [address] Urea nitrogen [Mass/Vol] 56 mg/dL High 7-25 [facility] Comment on above: Performed By: #### T YPEC #### [facility] (DEFAULT) [address] [place] [address] Urea nitrogen/Creatinine [Mass ratio] 41 mg/mg Normal [facility] Comment on above: Performed By: #### T YPEC #### [facility] (DEFAULT) [address] [place] [address] GLUCOSE POCon 08-12-2024 Glucose [Mass/Vol] 231 mg/dL High 70 - 179 mg/dL [facility] Interpretation and review of laboratory results Abnormal [facility] POC Sample Type CAPBL [facility] Glucose [Mass/Vol] 208 mg/dL High 70 - 179 mg/dL [facility] Interpretation and review of laboratory results Abnormal [facility] POC Sample Type CAPBL [facility] Glucose [Mass/Vol] 160 mg/dL 70 - 179 mg/dL [facility] POC Sample Type CAPBL [facility] Glucose [Mass/Vol] 107 mg/dL 70 - 179 mg/dL [facility] POC Sample Type CAPBL [facility] MAGNESIUMon 08-12-2024 Interpretation and review of laboratory results Normal [facility] Magnesium [Mass/Vol] 2.2 mg/dL 1.6 - 2 .6 mg/dL [facility] Magnesium [Mass/Vol] 2.2 mg/dL Normal 1.6-2.6 [facility] Comment on above: Performed By: #### T YPEC #### [facility] (DEFAULT) [address] [place] [address] No Panel Informationon 08-12 [facility] SURG PATH REQUESTOrdered By: Renae Glez on 08-12-2024 Case Report [facility] Clinical History o9yspLPlQWGqjUNwCXCt NVx emsZiQUMliOGzN2RouguoZB llSO9bDS2haAdaxDLhbGPyD NJkFsEan1xwf112hTKbc1ov YZBTbhwtlOx1vXobZ94al8U 5IwroG8byIGIbMNpiBUEtBU pmsFTzIQz1POXboLFhwaSoZ gWbBLVguCBxsGF7SFPfSX2l svjvDVyaXFcnQFHbuiD3ZTE kzNAaS6CrPMKmWJ9uxtmbYS G8ZNfkACBbATK1LzDcJNNtg 6Owajx6QyTplGg7r5jaBOEw LTTooQzwd6stJIJ8MDVsdKB tV9csjP5kOELgOP1pvruzf6 wvOTpqJWgxCVAksRH6fqX5T CCuuTVzH4SwnU1lPBBwAWKy reYmgLyyfO3cQlBpOEceGgX dNq3HGJmOUmBcBONlc6FaHV VcMCZBjMGplg5icQI8IBOVl 12xGgVdHCYulAXvkKHBtHH8 c7C2IqIgZt3jfKSoqBSaqTU iwSK2o3H0ZBFqq2VhMCTfFo xwYXJ9 [facility] For Immediate Release to Patient's MyChart? Yes Yes [facility] Gross Description f1jbfEGaZKZof9byKDCs bGF uZzEwMzNcZnRuYmpcdWMxIH tccnRmMVxlcGljMTExMDVcY R3npWreoEk2eVkhJVOrxvJ8 lEAhEBqpm6gaJBB2j1hhfvu nJHWjHMrcBd0pcJDzwHkmTg RgUSXcMQu6uO34ITZjjK0jt JEbRDacjqLzIJQsT1VxNF3a DLwiaTVdSPZ2dXtdKMTawsx iFyX6YWarKFYwmsudFXp6ZZ rzKWIreFR2FSCvxSDbN4CaM SCvGU7pxvo7TXK2NTwnIQYs NbC8VERaeEZbSWMczTfmVTa bc398SFX5KmZhVWQytsEdxH tavM5eGgOvKJSMbVRos7OeJ 6rsFY0ltTTdudIvSUh3KWYy eE7oh36vLRViw7Hwduh3NRl zXyFuRNRjS51bjWJiezCqAR dpdGggdGhlIHBhdGllbnQnc dPlQW5tADKoUKFwC8Fxc5Bp i17ghhEnKrNrHiXqbSPhKSZ bdqwpNtBzIBpjGfEwKdx4PB IgVGhlIHNwZWNpbWVuIGlzI WHys5eelrI5SKAhDozgz3Md kNJcATIpzoNduGCgGW2gJNN jskJvl7KzCM9qFRFilpPpYs JyK93brxCpUA6nGCBfbw0yr L4hFTTtXtAxoQafv6XbCXXb qk0eQICrGaE2eIZ4rhDnYjA wB64mnF5rD5MrWHTri3WiCO jjOO9doN3nSbKtEZWgTTNgx FSkHDObqpNYLRGySODmLQ3i dPh0VZuvMjiOPYsjZoYhGCX 4KTEhou38HOO7AzMlb8H4MW PyXdCaDTIqRI2dsKkfYXIbC Z2bAJXoH3nilV8xlie9PpRm HHLuKkB8FTDfnwU4Njj8VTO qXGgrw1gwo3JpMQMxTZy7dH jiVrTeZWHvd8tojgIcGaFpV HZeYQAhLOBttUFhV881c9aq v4lpexUmvWW6KGGoLJB1JVx teeVjvkR1WMstuFNdDiB7YM gmdxCsPHaurmYgefVvFrh5X ZVzH929JTU5ePrwe4zmBMQ7 YXUjLEEfBvHxGy1fvPLpO72 5QOPhAXBKYBPbkIp5DSCixk PlezXitNCWj880C127a4neJ BKbqqLlkMsFkncna9nlJ864 XHBhcGVydzEyMjQwXHBhcGV vwFQ3YJYjPI7edpxeDItoIW wxHUAubhH7NFHqfCPhJ2ViV YQcMZ1qbspuAJR0AMwpQRLe RYN0VkCzOUDir8Fwpok9NjK alh9bte61KDG6o6KhjWzxXX E1ZQP4RtFjLy5ddMOzAADhV Q2aEpUkxZXeZTRszs04mMgx DSjxzgAkpO4aLuYuJMOnmXU jNOSuXU6fqMLiIXGikZ3duf xjXHBnYnJkcmhlYWRccGdic xCaYh2cjNfyRGK3WOjbO7pm tC3bXmE6CKuqK2nxzP3hCBt 3VRfsiZM7JWEuxX3vJM7cff wxu9ncAMajHZcrDADfzoW6q uU0HDHwzENaK4UrwR1qCHWw PJ1ujgmsz5caRLT3JYlfRHV eQAB5VoVuIOAgf9Hjyrz9Gf Eaf0VkyIUoUNalO35wp184D MFanfScS7infKOtzaxpdKLf wroaQYjfszX9YPZgMOWaCKj uXGYxXGZzMjJcbGFuZzEwMz NcaGljaFxmMVxkYmNoXGYxX GntN2wgQhFpZnPcQeEHjb8x d0OjZFIepnG5zKhiLRVpj7G qo7FoRlZAOITgM9SmZQ5vvE SeVDGhhz44 [facility] Microscopic Description s9elrOBoURBauRUv ZjIyMDA nFHKrw5adNDQnrDZoOqNoKg NcZnRuYmpcdWMxXGRlZmYwe 3hvn830dVOgm8ivPAZkIcW5 jKBoXTHrlKSaS941QICxQCo wm5sgn8ZgNCWqgBRuj6I8NB KKeiqusYd0vZscA60us1R9Z gsoX7ikMTPtVOHsT2RmRO8e ETDqCeq4BCC0FRT8KQJrEII lQ8UcHZ8oRGFpdHTvVUy9q4 tksNkoPWWbGXO4c6awSWzfv nFiAW9ucc4yiUb6z9iwufKr TVZbFTVwqNMALFBlI7VacAw eFt5pnIs9cRyySabwMQK8Xi d1PC7vrs84yzv8bYsoUVYaf zgnAyI2YBpqCFAtkbcnXAy3 ZZneCENkrBA7ZMVnuREfB3S kDBZxQX1cewj5QRS4YHdsSK HwCvC2XDZqpAXcZELsaXyyA Olwp227HKE3NpNxJR5xG3Zj x6V4iK8uoXAwZSRqsQZsGoQ kLEAzft3ykLTmLRffh5IrIJ B2vyB8bNNioFRpZZTtMV60X huts8UkLsirYPG0EROpilUh t3Zqz8noCfGlqyXoQ5slA3A yZHJoZWFkXHBnYnJkcmZvb3 Ndq9JesRCmwBo0t4zrUFYuF BWyhAprd7moVSG4ZXDmB6N2 eYYag4uoULubKLYzbDB7qoE 9XENaoLGmD0CepO6pCQSaJR 1ujpx4s8axDTF6NKqqKFDrK tX8nvX6HCAunXLaTBWylDhj OTkwf067JNU9MhFtZHYqd5S wS6SkmJyfW40ivRrwB80hDV RdmPpbeB6csFtjyZ5dOhTaZ nMyNFxxbFxwbGFpblxmMVxm mpFxWDbwktovIFTvBAljU9s zWnFcQJBkeWgzHAffk4WdQR PtFLMcRwOaIFHzdSDsb2Lya 9FuCkJprHQcsT5wqWizxrB5 IJMudJZsFx1ugGXpPrSxkFF yfQ== [facility] Pathologic Diagnosis k7nyyOYpGEWheHBkRJV wNVx xmaPdVEUubTBjR1SalwkdLG giPS5nGX7qyZwzkDRjcVBmB NMpQuVqf9ssf482wGSci7nq FLCVpoeylVi9g1swJVIUzM2 ue1u6xF20ZWSqjS1dqBVlCH hvlvCkZUhnosKztsMbTxz8H AG3yQixFmrwfXA9zIXufLX1 WZqky1CigCrdpPjzKZUhPYG pEHB8C5pmfXE4kGTwxIforH DxJY2gf2cbvSH6vzRzODL7a KjrcAX9rHdjvrldk9bzdQZ9 sPQ7OMlosBA1VZusYxEyJ1g wZICcaT5uZ04zA2yhLZUbxY hfOOjiMFMpbTU8YKZ4WZWsd 1xsZXZlbHRleHRcJzAxXCdi Smp2v5uaDTBdwO69nUSthtO 7fVxmMVxmczIwXGxpMzYwXG ZpMTgwfXtcbGlzdGxldmVsX DzmtmGvahAxYrJefKX8RQlx ZcGjGxLjkBW7VNeqHiLhaZA 0XNoycQJrcXM7CJsakJF2JK k3TSj7HEvmGQheNze7kYxmh FT1RXkhqY2yXUOkO97mElOz AvEjNZ40PCtjt9CyDQOwaTq uRGXdrQ4iFyGiBUqgbwDndz ZjbjIzXGxldmVsamMwXGxld cVlm7CzfwGngVC3KAtwdiCh xJA8sDomVLIcD5U8R719BYy zlbOhpiPaQbNfqxl0BRArTU OnEvN3e1uyaCK4rST6XWklu GM5FJsoRrEwU9gnJGSfnV7f N91eY9viFTWocHqcOTltSAI riML4BAK6CCYob7pwGCTlrW MzeGEpBcUsTMjzDvm0d1rcH SOjsU98kKVdimR1wPqnROem czIwfXtcbGlzdGxldmVsXGx qpoDwklQbNoBhxWG9KQeqZc EhRtZttYA4XWbuPfCuwVP4Z MucfYIjaXC4OIcxlFD4CIt8 BOy1PMzhBEjjUpr4lEvlfRZ 6QVmatY0hIJBaK64xSeXvWd FeLD51WQqyw3JjEEKgaXiqD EQfcM2gHbQnNWtyxePpdcVh bjIzXGxldmVsamMwXGxldmV lt1NgfzVnmYN3MBdftrLbqN G9eTzzOEDaO2Y1V492RRwtp fZfkzLzBoHvjmp4UCFzFFRc AaW9u5iclAX5rIZ9SPnfxUU 8YMcnDzOuV9cbOEFndQ0vF2 3hE1rjIPHjsDjnTIbiCQLsf FS6AAP2TZWyb4neGATtaHZh hYUaYnMlNUuuYnn4c3aeURM kiV19nRAzppT1vXnlDWfoun IwfXtcbGlzdGxldmVsXGxld sDbocFgBqRcnAS0XXagMhTx RkEanPW2CKyvZhUxnBK3YHn dwFNzxVW9DTlwfGY7GSp1EY y3OGtkIOpgDrj6fWznoHJ1A YkcrM9mOVDqD33zWeLfSgHb YP27JZkpo5NcCKIboPeqWBO uwE9xApHnMBosbdYykcSwxf IzXGxldmVsamMwXGxldmVsc 6ZvwjWlvVH3CKmlnkUilNV5 cIcpAJOhY9P0P159YPaczsI uyxCsJrWmhfe7TAJzRKMoAa E4tR56CBnhpRwmvR39XYMrw WFvvPDhtYZ6IHxcfHronZ27 KPRcdKEuMQhcp4VqKVMgJgM 1OuEjXQUltKgkgE07SLPmhS TrV834pkWkSVfsEH69ABBtr GVydzEyMjQwXHBhcGVyaDE1 COVmJG4xstveWHiuUUvjNPV nzdP9AZEkjGXzN2EhKFQjSO 5geisnEKU9CRqfAHXkYUB9J aKzKLOxv0Lzgrk8DmYbjIAm XCsyfFUqqoffOOIaMdVfG3R mPJInBUO6p93wR4saBMUdo5 BzeTpccGFyXGxpMzYwXGZpM HecCPouimA7FStfuuSpvHh1 mUNmlIcyaX7xVokzveVpOQI mTEPMz6KycFDlin6kpN3mHT BoivIBigDKXJhdA12pBOI6P JJglUpjq1QdKJxyYY54sXTh ZWRccGFyfQ== [facility] Interpretation Performed at: i7lihARyXVKxfRUaYvGcSFL oBCGpx1zyAHOmwXNpQhLcNf NcZnRuYmpcdWMxXGRlZmYwe 6ycr578dIXyh8zkAVCmJgV8 dCUvEYQdxTImA851EDGfALd yo7jjj4TeXQJsoZUmf2V1NU XIbymnfLb8qInoY24gi5O4R oojK4cdVRCrKGHqK5DiMI9d IVQeQis5UNO4MIV6TMRuRWL hV5JwWI2gOYMieVHwEOl0s0 tteSysTUXwHPY4h6lpZScil hNlWF8gif0ngQo1p6sogbTv JYRpGKVadHYYHJQlG4WczAz aKv4qmGq2iRtqOccdJMX7Gg w9LS3eox23zzf4cBluEPCqa ezjRvJ8BUlkSLNbzxexJXc8 EVohZBQgxFC3FBZtwGZvL4W pKFHbNN7evsd1UHL8GWbfYG KeXpQ2KJRbjYDdJQRjhHceM Qlfd658KXE3QbQgPM4zS4Fh l0I9sS5dyVYbUSZrvKYdIhM kTYZvwe6ocUTeAQnag2BxCZ D0ahN9lYNadDIeUBNfVF76V bbcl0XkEixyRDZ0AOVzapWq k4Lin7cgMlMrtfAiF1zcD7O yZHJoZWFkXHBnYnJkcmZvb3 Lts9IdeJKobOk3c4djUGRxV JGlnIjpj4ziLPJ1WXYxZ5M0 xMZme1trAAmtRBVrnIP3fvR 7MZQfiNAvD7YhyE2kFXIlUI 2cgpz1v4swWOU0DHwcBMVyI hH0ciN8TPUprOPgORWhgXfa SWddu790SRL0PpAuAMRca6H zS7RakFocT43tkGxfR18kJF YlqUmgdB6dtNveqA2dNkOtR nMyNFxwYXJkXHBsYWluXGYx XGZzMjJcbGFuZzEwMzNcaGl jaFxmMVxkYmNoXGYxXGxvY2 nlIdJgJhWiDeAZS5TpH8JWN nNEZZ1XRCeZEBspV2SEFJMY MIIWXY9EB4EZBPjDYo6BTZD LRyxmzOXrXHGhLXXJHNQ7MF BstLylLZPxBVBnjsCSk2a9h EI8sxaiI7khjaQ6PbDtBEan YXJ9 [facility] CBC,PLATELETSon 08-11-2024 Erythrocyte distribution width (RBC) [Ratio] 13.7 % 10.8 - 14.9 % [facility] Hematocrit (Bld) [Volume fraction] 43.2 % 34.9 - 44.3 % [facility] Hemoglobin (Bld) [Mass/Vol] 14 g/dL 11.4 - 15.2 g/dL [facility] Interpretation and review of laboratory results Abnormal [facility] MCH (RBC) [Entitic mass] 29.9 pg 25.9 - 33.9 pg [facility] MCHC (RBC) [Mass/Vol] 32.4 g/dL 31.4 - 35.9 g/dL [facility] MCV (RBC) [Entitic vol] 92.1 fL 79.6 - 97.7 fL [facility] Platelet mean volume (Bld) [Entitic vol] 11.5 fL 8.5 - 12.2 fL [facility] Platelets (Bld) [#/Vol] 240 10*3/uL 150 - 393 K/uL [facility] RBC (Bld) [#/Vol] 4.69 10*6/uL [facility] WBC (Bld) [#/Vol] 11.76 10*3/uL High 3.99 - 11.19 K/uL [facility] Hematocrit (Bld) [Volume fraction] 43.2 % Normal 34.9-44.3 [facility] Comment on above: Performed By: #### T YPEC #### [facility] (DEFAULT) [address] [address] Hemoglobin (Bld) [Mass/Vol] 14.0 g/dL Normal 11.4-15.2 [facility] Comment on above: Performed By: #### T YPEC #### [facility] (DEFAULT) [address] [address] MCV (RBC) [Entitic vol] 92.1 fL Normal 79.6-97.7 [facility] Comment on above: Performed By: #### T YPEC #### [facility] (DEFAULT) [address] [address] Mean Cell Hgb 29.9 pg Normal 25.9-33.9 [facility] Comment on above: Performed By: #### T YPEC #### [facility] (DEFAULT) [address] [address] Mean Cell Hgb Conc 32.4 g/dL Normal 31.4-35.9 [facility] Comment on above: Performed By: #### T YPEC #### [facility] (DEFAULT) [address] [address] Platelet mean volume (Bld) [Entitic vol] 11.5 fL Normal 8.5-12.2 [facility] Comment on above: Performed By: #### T YPEC #### [facility] (DEFAULT) [address] [address] Platelets (Bld) [#/Vol] 240 10*3/uL Normal 150-393 [facility] Comment on above: Performed By: #### T YPEC #### [facility] (DEFAULT) [address] [address] RBC (Bld) [#/Vol] 4.69 10*6/uL Normal 3.91-5.04 [facility] Comment on above: Performed By: #### T YPEC #### [facility] (DEFAULT) [address] [place] [address] RBC Distribution 13.7 % Normal 10.8-14.9 [facility] Comment on above: Performed By: #### T YPEC #### [facility] (DEFAULT) [address] [place] [address] WBC (Bld) [#/Vol] 11.76 10*3/uL High 3.99-11.19 [facility] Comment on above: Performed By: #### T YPEC #### [facility] (DEFAULT) [address] [place] [address] CHEM 7 (LYTES,BUN,CREA,GLUC) on 08-11-2024 Anion gap [Moles/Vol] 14 mmol/L 7 - 17 mmol/L [facility] Chloride [Moles/Vol] 103 mmol/L 98 - 10 8 mmol/L [facility] CO2 [Moles/Vol] 26 mmol/L 21 - 31 mmol/L [facility] Creatinine [Mass/Vol] 1.32 mg/dL High 0.50 - 1.20 mg/dL [facility] eGFR, CKD-EPI, Female 41 Low - PINF [facility] Glucose [Mass/Vol] 127 mg/dL 70 - 179 mg/dL [facility] Interpretation and review of laboratory results Abnormal [facility] Osmolality Calc [Osmolality] 306 High [facility] Potassium [Moles/Vol] 4.6 mmol/L 3.5 - 5.0 mmol/L [facility] Sodium [Moles/Vol] 138 mmol/L 135 - 145 mmol/L [facility] Urea nitrogen [Mass/Vol] 53 mg/dL High 7 - 25 mg/dL [facility] Urea nitrogen/Creatinine [Mass ratio] 40 mg/mg [facility] Anion gap [Moles/Vol] 14 mmol/L Normal 7-17 [facility] Comment on above: Performed By: #### H EMOGC #### [facility] (DEFAULT) [address] [place] [address] Chloride [Moles/Vol] 103 mmol/L Normal 98-108 [facility] Comment on above: Performed By: #### H [facility] [place] #### [facility] (DEFAULT) [address] [address] CO2 [Moles/Vol] 26 mmol/L Normal 21-31 [facility] Comment on above: Performed By: #### H EMO #### [facility] (DEFAULT) [address] [address] Creatinine [Mass/Vol] 1.32 mg/dL High 0.50-1.20 [facility] Comment on above: Performed By: #### H [facility] [place] #### [facility] (DEFAULT) [address] [address] GFR/1.73 sq M.predicted among non-blacks MDRD (S/P/Bld) [Vol rate/Area] 41 mL/min/{1.73_m2} Low >=60 [facility] Comment on above: Result Comment: Repo rted eGFR is based on the CKD-EPI 2020 equation using creatinine, age, and sex. Performed By: #### H [facility] [place] #### [facility] (DEFAULT) [address] [address] Glucose [Mass/Vol] 127 mg/dL Normal Nonfastin -179 mg/dL; Fastin-99 [facility] Comment on above: Performed By: #### H [facility] [place] #### [facility] (DEFAULT) [address] [address] Osmolality [Osmolality] 306 mosm/kg High 278-305 [facility] Comment on above: Performed By: #### H EMOGC #### [facility] (DEFAULT) [address] [address] Potassium [Moles/Vol] 4.6 mmol/L Normal 3.5-5.0 [facility] Comment on above: Performed By: #### H EMOGC #### [facility] (DEFAULT) [address] [place] [address] Sodium [Moles/Vol] 138 mmol/L Normal 135-145 [facility] Comment on above: Performed By: #### H EMO #### [facility] (DEFAULT) [address] [place] [address] Urea nitrogen [Mass/Vol] 53 mg/dL High 7-25 [facility] Comment on above: Performed By: #### H EMOGC #### [facility] (DEFAULT) [address] [place] [address] Urea nitrogen/Creatinine [Mass ratio] 40 mg/mg Normal [facility] Comment on above: Performed By: #### H [facility] [place] #### [facility] (DEFAULT) [address] [place] [address] GLUCOSE POCon 08-11-2024 Glucose [Mass/Vol] 213 mg/dL High 70 - 179 mg/dL [facility] Interpretation and review of laboratory results Abnormal [facility] POC Sample Type CAPBL [facility] Glucose [Mass/Vol] 255 mg/dL High 70 - 179 mg/dL [facility] Interpretation and review of laboratory results Abnormal [facility] POC Sample Type [facility] Glucose [Mass/Vol] 190 mg/dL High 70 - 179 mg/dL [facility] Interpretation and review of laboratory results Abnormal [facility] POC Sample Type CAPBL [facility] Glucose [Mass/Vol] 205 mg/dL High 70 - 179 mg/dL [facility] Interpretation and review of laboratory results Abnormal [facility] POC Sample Type CAPBL [facility] MAGNESIUMon 08-11-2024 Interpretation and review of laboratory results Normal [facility] Magnesium [Mass/Vol] 1.9 mg/dL 1.6 - 2 .6 mg/dL [facility] Magnesium [Mass/Vol] 1.9 mg/dL Normal 1.6-2.6 [facility] Comment on above: Performed By: #### M WENDY, CHM7 #### [facility] (DEFAULT) [address] [place] [address] No Panel Informationon 08-11 [facility] BLOOD CULTUREon 08-10-2024 Bacteria identified Cx Nom (Unsp spec) NO GROWTH DAY 5 OF 5 Normal [facility] Comment on above: Order Comment: 2 [...] bottle. Performed By: #### T YPEC #### [facility] (DEFAULT) [address] [place] [address] Bacteria identified Cx Nom (Unsp spec) NO GROWTH DAY 5 OF 5 Normal [facility] Comment on above: Order Comment: 2 [...] bottle. Performed By: #### B LDCULT #### [facility] (DEFAULT) [address] [place] [address] CBC,PLATELETSon 08-10-2024 Erythrocyte distribution width (RBC) [Ratio] 13.3 % 10.8 - 14.9 % [facility] Hematocrit (Bld) [Volume fraction] 45.1 % High 34.9 - 44.3 % [facility] Hemoglobin (Bld) [Mass/Vol] 14.1 g/dL 11.4 - 15.2 g/dL [facility] Interpretation and review of laboratory results Abnormal [facility] MCH (RBC) [Entitic mass] 29.1 pg 25.9 - 33.9 pg [facility] MCHC (RBC) [Mass/Vol] 31.3 g/dL Low 31.4 - 35.9 g/dL [facility] MCV (RBC) [Entitic vol] 93 fL 79.6 - 97.7 fL [facility] Platelet mean volume (Bld) [Entitic vol] 11.4 fL 8.5 - 12.2 fL [facility] Platelets (Bld) [#/Vol] 216 10*3/uL 150 - 393 K/uL [facility] RBC (Bld) [#/Vol] 4.85 10*6/uL [facility] WBC (Bld) [#/Vol] 13.78 10*3/uL High 3.99 - 11.19 K/uL [facility] Hematocrit (Bld) [Volume fraction] 45.1 % High 34.9-44.3 [facility] Comment on above: Performed By: #### H [facility] [place] #### [facility] (DEFAULT) [address] [address] Hemoglobin (Bld) [Mass/Vol] 14.1 g/dL Normal 11.4-15.2 [facility] Comment on above: Performed By: #### H [facility] [place] #### [facility] (DEFAULT) [address] [address] MCV (RBC) [Entitic vol] 93.0 fL Normal 79.6-97.7 [facility] Comment on above: Performed By: #### H [facility] [place] #### [facility] (DEFAULT) [address] [address] Mean Cell Hgb 29.1 pg Normal 25.9-33.9 [facility] Comment on above: Performed By: #### H [facility] [place] #### [facility] (DEFAULT) [address] [place] [address] Mean Cell Hgb Conc 31.3 g/dL Low 31.4-35.9 [facility] Comment on above: Performed By: #### H EMOGC #### [facility] (DEFAULT) [address] [place] [address] Platelet mean volume (Bld) [Entitic vol] 11.4 fL Normal 8.5-12.2 [facility] Comment on above: Performed By: #### H EMOGC #### [facility] (DEFAULT) [address] [place] [address] Platelets (Bld) [#/Vol] 216 10*3/uL Normal 150-393 [facility] Comment on above: Performed By: #### H EMOGC #### [facility] (DEFAULT) [address] [place] [address] RBC (Bld) [#/Vol] 4.85 10*6/uL Normal 3.91-5.04 [facility] Comment on above: Performed By: #### H EMOGC #### [facility] (DEFAULT) [address] [place] [address] RBC Distribution 13.3 % Normal 10.8-14.9 [facility] Comment on above: Performed By: #### H EMOGC #### [facility] (DEFAULT) [address] [place] [address] WBC (Bld) [#/Vol] 13.78 10*3/uL High 3.99-11.19 [facility] Comment on above: Performed By: #### H EMOGC #### [facility] (DEFAULT) [address] [place] [address] CHEM 7 (LYTES,BUN,CREA,GLUC) on 08-10-2024 Anion gap [Moles/Vol] 16 mmol/L 7 - 17 mmol/L [facility] Chloride [Moles/Vol] 103 mmol/L 98 - 10 8 mmol/L [facility] CO2 [Moles/Vol] 24 mmol/L 21 - 31 mmol/L [facility] Creatinine [Mass/Vol] 1.36 mg/dL High 0.50 - 1.20 mg/dL [facility] eGFR, CKD-EPI, Female 40 Low - PINF [facility] Glucose [Mass/Vol] 186 mg/dL High 70 - 179 mg/dL [facility] Interpretation and review of laboratory results Abnormal [facility] Osmolality Calc [Osmolality] 308 High [facility] Potassium [Moles/Vol] 4.9 mmol/L 3.5 - 5.0 mmol/L [facility] Sodium [Moles/Vol] 138 mmol/L 135 - 145 mmol/L [facility] Urea nitrogen [Mass/Vol] 47 mg/dL High 7 - 25 mg/dL [facility] Urea nitrogen/Creatinine [Mass ratio] 35 mg/mg [facility] Anion gap [Moles/Vol] 16 mmol/L Normal 7-17 [facility] Comment on above: Performed By: #### Jaiden NGUYEN CHM7 ####[facility] (DEFAULT)[address] [place] [address] Chloride [Moles/Vol] 103 mmol/L Normal 98-108 [facility] Comment on above: Performed By: #### Jaiden NGUYEN CHM7 ####[facility] (DEFAULT)[address] [place] [address] CO2 [Moles/Vol] 24 mmol/L Normal 21-31 [facility] Comment on above: Performed By: #### Jaiden NGUYEN CHM7 ####[facility] (DEFAULT)[address] [place] [address] Creatinine [Mass/Vol] 1.36 mg/dL High 0.50-1.20 [facility] Comment on above: Performed By: #### Jaiden NGUYEN CHM7 ####[facility] (DEFAULT)[address] [place] [address] GFR/1.73 sq M.predicted among non-blacks MDRD (S/P/Bld) [Vol rate/Area] 40 mL/min/{1.73_m2} Low >=60 [facility] Comment on above: Result Comment: Repo rted eGFR is based on the CKD-EPI 2020 equation using creatinine, age, and sex. Performed By: #### HEYDI PALACIOS7 ####[facility] (DEFAULT)[address] [place] [address] Glucose [Mass/Vol] 186 mg/dL High Nonfastin -179 mg/dL; Fastin-99 [facility] Comment on above: Performed By: #### CAMERON PALACIOS ####[facility] (DEFAULT)[address] [place] [address] Osmolality [Osmolality] 308 mosm/kg High 278-305 [facility] Comment on above: Performed By: #### HEYDI PALACIOS7 ####[facility] (DEFAULT)[address] [place] [address] Potassium [Moles/Vol] 4.9 mmol/L Normal 3.5-5.0 [facility] Comment on above: Performed By: #### HEYDI PALACIOS7 ####[facility] (DEFAULT)[address] [place] [address] Sodium [Moles/Vol] 138 mmol/L Normal 135-145 [facility] Comment on above: Performed By: #### HEYDI PALACIOS7 ####[facility] (DEFAULT)[address] [place] [address] Urea nitrogen [Mass/Vol] 47 mg/dL High 7-25 [facility] Comment on above: Performed By: #### HEYDI PALACIOS7 ####[facility] (DEFAULT)[address] [place] [address] Urea nitrogen/Creatinine [Mass ratio] 35 mg/mg Normal [facility] Comment on above: Performed By: #### M WENDY CHM7 ####[facility] (DEFAULT)[address] [place] [address] GLUCOSE POCon 08-10-2024 Glucose [Mass/Vol] 144 mg/dL 70 - 179 mg/[facility] P[facility] Sample Type CAPBL [facility] Glucose [Mass/Vol] 177 mg/dL 70 - 179 mg/dL [facility] POC Sample Type CAPBL [facility] Glucose [Mass/Vol] 180 mg/dL High 70 - 179 mg/dL [facility] Interpretation and review of laboratory results Abnormal [facility] POC Sample Type CAP[facility] Glucose [Mass/Vol] 193 mg/dL High 70 - 179 mg/dL [facility] Interpretation and review of laboratory results Abnormal [facility] POC Sample Type CAPBL [facility] Glucose [Mass/Vol] 200 mg/dL High 70 - 179 mg/dL [facility] Interpretation and review of laboratory results Abnormal [facility] POC Sample Type CAPBL [facility] Glucose [Mass/Vol] 198 mg/dL High 70 - 179 mg/dL [facility] Interpretation and review of laboratory results Abnormal [facility] POC Sample Type CAPBL [facility] MAGNESIUMon 08-10-2024 Interpretation and review of laboratory results Normal [facility] Magnesium [Mass/Vol] 1.8 mg/dL 1.6 - 2 .6 mg/dL [facility] Magnesium [Mass/Vol] 1.8 mg/dL Normal 1.6-2.6 [facility] Comment on above: Performed By: #### M WENDY [facility] ####[facility] (DEFAULT)[address] [place] [address] No Panel Informationon 08-10 [facility] URINE CULTUREOrdered By: Franklin Carcamo on 08-10-2024 Bacteria identified Cx Nom (Unsp spec) Growth [facility] Bacteria identified Cx Nom (Unsp spec) KLEBSIELLA PNEUMONIAE Abnormal [facility] Interpretation and review of laboratory results Abnormal [facility] CBC,PLATELETSon 08-09-2024 Erythrocyte distribution width (RBC) [Ratio] 13.5 % 10.8 - 14.9 % [facility] Hematocrit (Bld) [Volume fraction] 44.4 % High 34.9 - 44.3 % [facility] Hemoglobin (Bld) [Mass/Vol] 14.1 g/dL 11.4 - 15.2 g/dL [facility] Interpretation and review of laboratory results Abnormal [facility] MCH (RBC) [Entitic mass] 29.4 pg 25.9 - 33.9 pg [facility] MCHC (RBC) [Mass/Vol] 31.8 g/dL 31.4 - 35.9 g/dL [facility] MCV (RBC) [Entitic vol] 92.7 fL 79.6 - 97.7 fL [facility] Platelet mean volume (Bld) [Entitic vol] 11.5 fL 8.5 - 12.2 fL [facility] Platelets (Bld) [#/Vol] 226 10*3/uL 150 - 393 K/uL [facility] RBC (Bld) [#/Vol] 4.79 10*6/uL [facility] WBC (Bld) [#/Vol] 12.37 10*3/uL High 3.99 - 11.19 K/uL [facility] Hematocrit (Bld) [Volume fraction] 44.4 % High 34.9-44.3 [facility] Comment on above: Performed By: #### H [facility] [place] #### [facility] (DEFAULT) [address] [address] Hemoglobin (Bld) [Mass/Vol] 14.1 g/dL Normal 11.4-15.2 [facility] Comment on above: Performed By: #### H EMOGC #### [facility] (DEFAULT) [address] [address] MCV (RBC) [Entitic vol] 92.7 fL Normal 79.6-97.7 [facility] Comment on above: Performed By: #### H EMOGC #### [facility] (DEFAULT) [address] [address] Mean Cell Hgb 29.4 pg Normal 25.9-33.9 [facility] Comment on above: Performed By: #### H EMOGC #### [facility] (DEFAULT) [address] [address] Mean Cell Hgb Conc 31.8 g/dL Normal 31.4-35.9 [facility] Comment on above: Performed By: #### H EMOGC #### [facility] (DEFAULT) [address] [address] Platelet mean volume (Bld) [Entitic vol] 11.5 fL Normal 8.5-12.2 [facility] Comment on above: Performed By: #### H EMOGC #### [facility] (DEFAULT) [address] [address] Platelets (Bld) [#/Vol] 226 10*3/uL Normal 150-393 [facility] Comment on above: Performed By: #### H EMOGC #### [facility] (DEFAULT) [address] [address] RBC (Bld) [#/Vol] 4.79 10*6/uL Normal 3.91-5.04 [facility] Comment on above: Performed By: #### H EMOGC #### [facility] (DEFAULT) [address] [place] [address] RBC Distribution 13.5 % Normal 10.8-14.9 [facility] Comment on above: Performed By: #### H [facility] [place] #### [facility] [facility] (DEFAULT) [address] [place] [address] WBC (Bld) [#/Vol] 12.37 10*3/uL High 3.99-11.19 [facility] Comment on above: Performed By: #### [facility] [place] #### [facility] (DEFAULT) [address] [place] [id number] CHEM 7 (LYTES,BUN,CREA,GLUC) on 08-09-2024 Anion gap [Moles/Vol] 14 mmol/L 7 - 17 mmol/L [facility] Chloride [Moles/Vol] 103 mmol/L 98 - 10 8 mmol/L [facility] CO2 [Moles/Vol] 26 mmol/L 21 - 31 mmol/L [facility] Creatinine [Mass/Vol] 1.35 mg/dL High 0.50 - 1.20 mg/dL [facility] eGFR, CKD-EPI, Female 40 Low - PINF [facility] Glucose [Mass/Vol] 182 mg/dL High 70 - 179 mg/dL [facility] Interpretation and review of laboratory results Abnormal [facility] Osmolality Calc [Osmolality] 305 [facility] Potassium [Moles/Vol] 4.9 mmol/L 3.5 - 5.0 mmol/L [facility] Sodium [Moles/Vol] 138 mmol/L 135 - 145 mmol/L [facility] Urea nitrogen [Mass/Vol] 38 mg/dL High 7 - 25 mg/dL [facility] Urea nitrogen/Creatinine [Mass ratio] 28 mg/mg [facility] Anion gap [Moles/Vol] 14 mmol/L Normal 7-17 [facility] Comment on above: Performed By: #### H [facility] [place] #### [facility] (DEFAULT) [address] [place] [address] Chloride [Moles/Vol] 103 mmol/L Normal 98-108 [facility] Comment on above: Performed By: #### H [facility] [place] #### [facility] (DEFAULT) [address] [address] CO2 [Moles/Vol] 26 mmol/L Normal 21-31 [facility] Comment on above: Performed By: #### H EMO #### [facility] (DEFAULT) [address] [address] Creatinine [Mass/Vol] 1.35 mg/dL High 0.50-1.20 [facility] Comment on above: Performed By: #### H [facility] [place] #### [facility] (DEFAULT) [address] [address] GFR/1.73 sq M.predicted among non-blacks MDRD (S/P/Bld) [Vol rate/Area] 40 mL/min/{1.73_m2} Low >=60 [facility] Comment on above: Result Comment: Repo rted eGFR is based on the CKD-EPI 2020 equation using creatinine, age, and sex. Performed By: #### H [facility] [place] #### [facility] (DEFAULT) [address] [address] Glucose [Mass/Vol] 182 mg/dL High Nonfastin -179 mg/dL; Fastin-99 [facility] Comment on above: Performed By: #### H [facility] [place] #### [facility] (DEFAULT) [address] [address] Osmolality [Osmolality] 305 mosm/kg Normal 278-305 [facility] Comment on above: Performed By: #### H EMOGC #### [facility] (DEFAULT) [address] [address] Potassium [Moles/Vol] 4.9 mmol/L Normal 3.5-5.0 [facility] Comment on above: Performed By: #### H EMOGC #### [facility] (DEFAULT) [address] [place] [address] Sodium [Moles/Vol] 138 mmol/L Normal 135-145 [facility] Comment on above: Performed By: #### H [facility] [place] #### [facility] (DEFAULT) [address] [place] [address] Urea nitrogen [Mass/Vol] 38 mg/dL High 7-25 [facility] Comment on above: Performed By: #### H EMOGC #### [facility] (DEFAULT) [address] [place] [address] Urea nitrogen/Creatinine [Mass ratio] 28 mg/mg Normal [facility] Comment on above: Performed By: #### H [facility] [place] #### [facility] (DEFAULT) [address] [place] [address] EXTRA MICROon 08-09-2024 [facility] GLUCOSE POCon 08-09-2024 Glucose [Mass/Vol] 186 mg/dL High 70 - 179 mg/dL [facility] Interpretation and review of laboratory results Abnormal [facility] POC Sample Type CAPBL [facility] Glucose [Mass/Vol] 255 mg/dL High 70 - 179 mg/dL [facility] Interpretation and review of laboratory results Abnormal [facility] POC Sample Type CAPBL [facility] Glucose [Mass/Vol] 235 mg/dL High 70 - 179 mg/dL [facility] Interpretation and review of laboratory results Abnormal [facility] POC Sample Type CAPBL [facility] Glucose [Mass/Vol] 167 mg/dL 70 - 179 mg/dL [facility] POC Sample Type CAPBL [facility] INTERVENTIONAL UPPER ENDOSCO PYon 08-09-2024 Body surface area Derived from formula 1.9 m2 [facility] LAB, [facility] Radiology Study observation (narrative) [facility] MAGNESIUMon 08-09-2024 Interpretation and review of laboratory results Normal [facility] Magnesium [Mass/Vol] 1.8 mg/dL 1.6 - 2 .6 mg/dL [facility] Magnesium [Mass/Vol] 1.8 mg/dL Normal 1.6-2.6 [facility] Comment on above: Performed By: #### H EMO #### [facility] (DEFAULT) [address] [place] [address] No Panel Informationon 08-09 [facility] PT,INR,PTTon 08-09-2024 aPTT Coag (PPP) [Time] 38.4 s High [facility] INR Coag (Bld) [Relative time] 1 {INR} 0.9 - 1.1 [facility] Interpretation and review of laboratory results Abnormal [facility] PT Coag (PPP) [Time] 13 s [facility] aPTT Coag (Bld) [Time] 38.4 s High 24.0-34.3 [facility] Comment on above: Performed By: #### B LDCULT #### [facility] (DEFAULT) [address] [place] [address] INR Coag (PPP) [Relative time] 1.0 {INR} Normal 0.9-1.1 [facility] Comment on above: Performed By: #### B LDCULT #### [facility] (DEFAULT) [address] [place] [address] PT Coag (PPP) [Time] 13.0 s Normal 11.9-14.2 [facility] Comment on above: Performed By: #### B LDCULT #### [facility] (DEFAULT) [address] [place] [address] SURG PATH REQUESTon 08-10-19 Case Report Normal [facility] Comment on above: Result Comment: Surg [facility] Pathology Report Case: [id number] Authorizing Provider: Judson Keith DO Collected: 08/09/2024 10:07 AM Ordering Location: [facility] Received: 08/09/2024 12:13 PM Pathologist: Renae Glez MD Specimen: STOMACH, gastric, r/o HP Performed By: #### S URGP #### [facility] (DEFAULT) [address] [place] [address] Clinical History R/O HP. Associated Diagnosis: None. Medical History: No medical history provided. [facility] Comment on above: Performed By: #### S URGP #### [facility] (DEFAULT) [address] [address] Gross Description [facility] Comment on above: Result Comment: The specimen is received in one properly labeled container with the patient's name and accession number. A. The specimen is designated "gastric, r/o hp" and consists of five fragments of jackson-pink soft tissue, from 0.2 up to 0.6 cm in greatest dimension. TE 1 Lab Use Only: JobID [id number] Grosser for this case was: Sunshine Hidalgo Performed By: #### S URGP #### [facility] (DEFAULT) [address] [address] Microscopic Description A microscopic examination was performed. [facility] Comment on above: Performed By: #### S URGP #### [facility] (DEFAULT) [address] [address] Pathologic Diagnosis [facility] Comment on above: Result Comment: Anjelica echols, biopsy: Focal erosion No Helicobacter pylori identified at 1005 EDT Performed By: #### S URGP #### [facility] (DEFAULT) [address] [address] Professional Interpretation Performed at: [facility] Comment on above: Result Comment: [facility] For Immediate Release [facility] Yes [address] [address] Performed By: #### S URGP #### [facility] (DEFAULT) [address] [place] [address] CBC,PLATELETSon 08-08-2024 Erythrocyte distribution width (RBC) [Ratio] 13.6 % 10.8 - 14.9 % [facility] Hematocrit (Bld) [Volume fraction] 45.7 % High 34.9 - 44.3 % [facility] Hemoglobin (Bld) [Mass/Vol] 14.4 g/dL 11.4 - 15.2 g/dL [facility] Interpretation and review of laboratory results Abnormal [facility] MCH (RBC) [Entitic mass] 29.4 pg 25.9 - 33.9 pg [facility] MCHC (RBC) [Mass/Vol] 31.5 g/dL 31.4 - 35.9 g/dL [facility] MCV (RBC) [Entitic vol] 93.3 fL 79.6 - 97.7 fL [facility] Platelet mean volume (Bld) [Entitic vol] 10.9 fL 8.5 - 12.2 fL [facility] Platelets (Bld) [#/Vol] 212 10*3/uL 150 - 393 K/uL [facility] RBC (Bld) [#/Vol] 4.9 10*6/uL [facility] WBC (Bld) [#/Vol] 10.39 10*3/uL 3.99 - 11.19 K/uL [facility] Hematocrit (Bld) [Volume fraction] 45.7 % High 34.9-44.3 [facility] Comment on above: Performed By: #### H [facility] [place] #### [facility] (DEFAULT) [address] [place] [address] Hemoglobin (Bld) [Mass/Vol] 14.4 g/dL Normal 11.4-15.2 [facility] Comment on above: Performed By: #### H EMOGC #### [facility] (DEFAULT) [address] [place] [address] MCV (RBC) [Entitic vol] 93.3 fL Normal 79.6-97.7 [facility] Comment on above: Performed By: #### H EMOGC #### [facility] (DEFAULT) [address] [place] [address] Mean Cell Hgb 29.4 pg Normal 25.9-33.9 [facility] Comment on above: Performed By: #### H EMOGC #### [facility] (DEFAULT) [address] [place] [address] Mean Cell Hgb Conc 31.5 g/dL Normal 31.4-35.9 [facility] Comment on above: Performed By: #### H EMOGC #### [facility] (DEFAULT) [address] [place] [address] Platelet mean volume (Bld) [Entitic vol] 10.9 fL Normal 8.5-12.2 [facility] Comment on above: Performed By: #### H EMOGC #### [facility] (DEFAULT) [address] [place] [address] Platelets (Bld) [#/Vol] 212 10*3/uL Normal 150-393 [facility] Comment on above: Performed By: #### H EMOGC #### [facility] (DEFAULT) [address] [place] [address] RBC (Bld) [#/Vol] 4.90 10*6/uL Normal 3.91-5.04 [facility] Comment on above: Performed By: #### H EMOGC #### [facility] (DEFAULT) [address] [address] RBC Distribution 13.6 % Normal 10.8-14.9 [facility] Comment on above: Performed By: #### H EMOGC #### [facility] (DEFAULT) [address] [place] [address] WBC (Bld) [#/Vol] 10.39 10*3/uL Normal 3.99-11.19 [facility] Comment on above: Performed By: #### H [facility] [place] #### [facility] (DEFAULT) [address] [place] [address] CHEM 7 (LYTES,BUN,CREA,GLUC) on 08-08-2024 Anion gap [Moles/Vol] 15 mmol/L 7 - 17 mmol/L [facility] Chloride [Moles/Vol] 104 mmol/L 98 - 10 8 mmol/L [facility] CO2 [Moles/Vol] 25 mmol/L 21 - 31 mmol/L [facility] Creatinine [Mass/Vol] 1.15 mg/dL 0.50 - 1.20 mg/dL [facility] eGFR, CKD-EPI, Female 48 Low - PINF [facility] Glucose [Mass/Vol] 111 mg/dL 70 - 179 mg/dL [facility] Interpretation and review of laboratory results Abnormal [facility] Osmolality Calc [Osmolality] 302 [facility] Potassium [Moles/Vol] 4.3 mmol/L 3.5 - 5.0 mmol/L [facility] Sodium [Moles/Vol] 140 mmol/L 135 - 145 mmol/L [facility] Urea nitrogen [Mass/Vol] 35 mg/dL High 7 - 25 mg/dL [facility] Urea nitrogen/Creatinine [Mass ratio] 30 mg/mg [facility] Anion gap [Moles/Vol] 15 mmol/L Normal 7-17 [facility] Comment on above: Performed By: #### HEYDI PALACIOS7 ####[facility] (DEFAULT)[address] [place] [address] Chloride [Moles/Vol] 104 mmol/L Normal 98-108 [facility] Comment on above: Performed By: #### Jaiden NGUYEN CHM7 ####[facility] (DEFAULT)[address] [place] [address] CO2 [Moles/Vol] 25 mmol/L Normal 21-31 [facility] Comment on above: Performed By: #### CAMERON PALACIOS ####[facility] (DEFAULT)[address] [facility] [place] [address] Creatinine [Mass/Vol] 1.15 mg/dL Normal 0.50-1.20 [facility] Comment on above: Performed By: #### CAMERON PALACIOS ####[facility] (DEFAULT)[address] [place] [address], [place] [address] GFR/1.73 sq M.predicted among non-blacks MDRD (S/P/Bld) [Vol rate/Area] 48 mL/min/{1.73_m2} Low >=60 [facility] Comment on above: Result Comment: Repo rted eGFR is based on the CKD-EPI 2020 equation using creatinine, age, and sex. Performed By: #### CAMERON PALACIOS ####[facility] (DEFAULT)[address] [place] [address] Glucose [Mass/Vol] 111 mg/dL Normal Nonfastin -179 mg/dL; Fastin-99 [facility] Comment on above: Performed By: #### CAMERON PALACIOS ####[facility] (DEFAULT)[address] [place] [address] Osmolality [Osmolality] 302 mosm/kg Normal 278-305 [facility] Comment on above: Performed By: #### CAMERON PALACIOS ####[facility] (DEFAULT)[address] [place] [address] Potassium [Moles/Vol] 4.3 mmol/L Normal 3.5-5.0 [facility] Comment on above: Performed By: #### HEYDI PALACIOS7 ####[facility] (DEFAULT)[address] [facility] [place] [address] Sodium [Moles/Vol] 140 mmol/L Normal 135-145 [facility] Comment on above: Performed By: #### M WENDY, CHM7 ####[facility] (DEFAULT)[address] [place] [address] Urea nitrogen [Mass/Vol] 35 mg/dL High 7-25 [facility] Comment on above: Performed By: #### M WENDY, CHM7 ####[facility] (DEFAULT)[address] [facility] [place] [address] Urea nitrogen/Creatinine [Mass ratio] 30 mg/mg Normal [facility] Comment on above: Performed By: #### M WENDY CHM7 ####[facility] (DEFAULT)[address] [place] [address] CT HEAD WITHOUT CONTRASTon 0 08-08-2024 CT [...] have reviewed and approved this report. Normal [facility] CT Head WO contraston 2024 [facility] (narrative) [facility] GLUCOSE POCon 08-08-2024 Glucose [Mass/Vol] 150 mg/dL 70 - 179 mg/dL [facility] POC Sample Type CAPBL [facility] Glucose [Mass/Vol] 148 mg/dL 70 - 179 mg/dL [facility] POC Sample Type CAPBL [facility] Glucose [Mass/Vol] 192 mg/dL High 70 - 179 mg/dL [facility] Interpretation and review of laboratory results Abnormal [facility] POC Sample Type CAPBL [facility] Glucose [Mass/Vol] 198 mg/dL High 70 - 179 mg/dL [facility] Interpretation and review of laboratory results Abnormal [facility] POC Sample Type CAPBL [facility] Glucose [Mass/Vol] 186 mg/dL High 70 - 179 mg/dL [facility] Interpretation and review of laboratory results Abnormal [facility] POC Sample Type CAPBL [facility] MAGNESIUMon 08-08-2024 Interpretation and review of laboratory results Normal [facility] Magnesium [Mass/Vol] 1.7 mg/dL 1.6 - 2 .6 mg/dL [facility] Magnesium [Mass/Vol] 1.7 mg/dL Normal 1.6-2.6 [facility] Comment on above: Performed By: #### [facility] ####[facility] (DEFAULT)[address] [place] [address] No Panel Informationon 08-08 [facility] URINALYSIS REFLEX TO CULTURE PERFORMABLEOrdered By: Danya Yates on 08-08-2024 Appearance (U) Cloudy Abnormal Clear [facility] Bacteria LM Ql (Urine sed) PRESENT Abnormal ABSENT [facility] Color (U) Yellow Yellow [facility] Epithelial cells.squamous LM Ql (Urine sed) 0-2/hpf 0-2/hpf, 3-5/hpf = 1+ [facility] Glucose Test strip (U) [Mass/Vol] Negative Negative [facility] Interpretation and review of laboratory results Abnormal [facility] Ketones (U) [Mass/Vol] Trace Abnormal Negative [facility] Leukocyte esterase Test strip Ql (U) Large Abnormal Negative [facility] Nitrite Ql (U) Positive Abnormal Negative [facility] pH (U) 7.0 [pH] 5.0 - 7.0 [facility] Protein (U) [Mass/Vol] Trace Abnormal Negative [facility] RBC (U) [#/Vol] Trace Abnormal Negative [facility] RBC LM.HPF (Urine sed) [#/Area] 6-10 Abnormal [facility] Specific gravity (U) [Rel density] 1.023 1.001 - 1.035 [facility] Urobilinogen (U) [Mass/Vol] 1.0 E.U./dL 0.2 E.U/dL, 1.0 E.U/dL [facility] WBC LM.HPF (Urine sed) [#/Area] /[HPF] Abnormal [facility] URINALYSIS REFLEX TO CULTURE PERFORMABLEon 08-08-2024 Appearance (U) Cloudy Abnormal Clear [facility] Comment on above: Order Comment: For i ndwelling catheters, specimen collection is acceptable on catheter day 1 and 2 only. ? Performed By: #### T YPEC #### [facility] (DEFAULT) [address] [place] [address] Bacteria PRESENT Abnormal ABSENT [facility] Comment on above: Order Comment: For i ndwelling catheters, specimen collection is acceptable on catheter day 1 and 2 only. ? Performed By: #### T YPEC #### [facility] (DEFAULT) [address] [place] [address] Blood Urine Trace Abnormal Negative [facility] Comment on above: Order Comment: For i ndwelling catheters, specimen collection is acceptable on catheter day 1 and 2 only. ? Performed By: #### T YPEC #### [facility] (DEFAULT) [address] [place] [address] Color (U) Yellow Normal Yellow [facility] Comment on above: Order Comment: For i ndwelling catheters, specimen collection is acceptable on catheter day 1 and 2 only. ? Performed By: #### T YPEC #### [facility] (DEFAULT) [address] [place] [address] Glucose Ql (U) Negative Normal Negative [facility] Comment on above: Order Comment: For i ndwelling catheters, specimen collection is acceptable on catheter day 1 and 2 only. ? Performed By: #### T YPEC #### [facility] (DEFAULT) [address] [place] [address] Ketones Ql (U) Trace Abnormal Negative [facility] Comment on above: Order Comment: For i ndwelling catheters, specimen collection is acceptable on catheter day 1 and 2 only. ? Performed By: #### T YPEC #### [facility] (DEFAULT) [address] [place] [address] Leukocyte esterase Test strip Ql (U) Large Abnormal Negative [facility] Comment on above: Order Comment: For i ndwelling catheters, specimen collection is acceptable on catheter day 1 and 2 only. ? Performed By: #### T YPEC #### [facility] (DEFAULT) [address] [place] [address] Nitrites Urine Positive Abnormal Negative [facility] Comment on above: Order Comment: For i ndwelling catheters, specimen collection is acceptable on catheter day 1 and 2 only. ? Performed By: #### T YPEC #### [facility] (DEFAULT) [address] [place] [address] pH (U) 7.0 [pH] Normal 5.0-7.0 [facility] Comment on above: Order Comment: For i ndwelling catheters, specimen collection is acceptable on catheter day 1 and 2 only. ? Performed By: #### T YPEC #### [facility] (DEFAULT) [address] [place] [address] Protein Urine Trace Abnormal Negative [facility] Comment on above: Order Comment: For i ndwelling catheters, specimen collection is acceptable on catheter day 1 and 2 only. ? Performed By: #### T YPEC #### [facility] (DEFAULT) [address] [address] RBC Urine 6-10 Abnormal 0-2 [facility] Comment on above: Order Comment: For i ndwelling catheters, specimen collection is acceptable on catheter day 1 and 2 only. ? Performed By: #### T YPEC #### [facility] (DEFAULT) [address] [address] Specific [place] Urine 1.023 Normal 1.001-1.035 [facility] Comment on above: Order Comment: For i ndwelling catheters, specimen collection is acceptable on catheter day 1 and 2 only. ? Performed By: #### T YPEC #### [facility] (DEFAULT) [address] [address] Squamous/Epithelial Cells, Urine 0-2/hpf Normal 0-2/hpf, 3-5/hpf = 1+ [facility] Comment on above: Order Comment: For i ndwelling catheters, specimen collection is acceptable on catheter day 1 and 2 only. ? Performed By: #### T YPEC #### [facility] (DEFAULT) [address] [place] [address] Urobilinogen Urine 1.0 E.U./dL Normal 0.2 E.U/d L, 1.0 E.U/dL [facility] Comment on above: Order Comment: For i ndwelling catheters, specimen collection is acceptable on catheter day 1 and 2 only. ? Performed By: #### T YPEC #### [facility] (DEFAULT) [address] [address] WBC LM.HPF (Urine sed) [#/Area] /[HPF] Abnormal 0 - 5 [facility] Comment on above: Order Comment: For i ndwelling catheters, specimen collection is acceptable on catheter day 1 and 2 only. ? Performed By: #### T YPEC #### [facility] (DEFAULT) [address] [address] URINE CULTUREon 08-08-2024 Amikacin [Susceptibility] <= Invalid Interpretation Code [facility] Comment on above: Order Comment: [...] ? Performed By: #### T YPEC #### [facility] (DEFAULT) [address] [address] Ampicillin [Susceptibility] >=32 Resistant [facility] Comment on above: Order Comment: [...] ? Performed By: #### T YPEC #### [facility] (DEFAULT) [address] [address] Ampicillin+Sulbactam [Susceptibility] >=32 Resistant [facility] Comment on above: Order Comment: [...] ? Performed By: #### T YPEC #### [facility] (DEFAULT) [address] [place] [address] ceFAZolin [Susceptibility] >= Resistant [facility] Comment on above: Order Comment: [...] cefdinir. Performed By: #### T YPEC #### [facility] (DEFAULT) [address] [address] Cefepime [Susceptibility] <= Invalid Interpretation Code [facility] Comment on above: Order Comment: [...] Performed By: #### T YPEC #### [facility] (DEFAULT) [address] [address] cefTRIAXone [Susceptibility] <= Invalid Interpretation Code [facility] Comment on above: Order Comment: [...] ? Performed By: #### T YPEC #### [facility] (DEFAULT) [address] [place] [address] Ciprofloxacin [Susceptibility] >= Resistant [facility] Comment on above: Order Comment: [...] Performed By: #### T YPEC #### [facility] (DEFAULT) [address] [address] Ertapenem [Susceptibility] <= Invalid Interpretation Code [facility] Comment on above: Order Comment: [...] ? Performed By: #### T YPEC #### [facility] (DEFAULT) [address] [address] Gentamicin [Susceptibility] <= Invalid Interpretation Code [facility] Comment on above: Order Comment: [...] Performed By: #### T YPEC #### [facility] (DEFAULT) [address] [address] levoFLOXacin [Susceptibility] >= Resistant [facility] Comment on above: Order Comment: [...] Performed By: #### T YPEC #### [facility] (DEFAULT) [address] [address] Nitrofurantoin [Susceptibility] 128 ug/mL Resistant [facility] Comment on above: Order Comment: [...] ? Performed By: #### T YPEC #### [facility] (DEFAULT) [address] [address] Piperacillin+Tazobactam [Susceptibility] 8 ug/mL Invalid Interpretation Code [facility] Comment on above: Order Comment: [...] ? Performed By: #### T YPEC #### [facility] (DEFAULT) [address] [address] Trimethoprim+Sulfametho xazole [Susceptibility] <= Invalid Interpretation Code [facility] Comment on above: Order Comment: [...] ? Performed By: #### T YPEC #### [facility] (DEFAULT) [address] [address] CBC,PLATELETSon 08-07-2024 Erythrocyte distribution width (RBC) [Ratio] 13.9 % 10.8 - 14.9 % [facility] Hematocrit (Bld) [Volume fraction] 43.1 % 34.9 - 44.3 % [facility] Hemoglobin (Bld) [Mass/Vol] 13.7 g/dL 11.4 - 15.2 g/dL [facility] Interpretation and review of laboratory results Abnormal [facility] MCH (RBC) [Entitic mass] 29.6 pg 25.9 - 33.9 pg [facility] MCHC (RBC) [Mass/Vol] 31.8 g/dL 31.4 - 35.9 g/dL [facility] MCV (RBC) [Entitic vol] 93.1 fL 79.6 - 97.7 fL [facility] Platelet mean volume (Bld) [Entitic vol] 11.1 fL 8.5 - 12.2 fL [facility] Platelets (Bld) [#/Vol] 214 10*3/uL 150 - 393 K/uL [facility] RBC (Bld) [#/Vol] 4.63 10*6/uL [facility] WBC (Bld) [#/Vol] 11.3 10*3/uL High 3.99 - 11.19 K/uL [facility] CHEM 7 (LYTES,BUN,CREA,GLUC) on 08-07-2024 Anion gap [Moles/Vol] 13 mmol/L 7 - 17 mmol/L [facility] Chloride [Moles/Vol] 105 mmol/L 98 - 10 8 mmol/L [facility] CO2 [Moles/Vol] 28 mmol/L 21 - 31 mmol/L [facility] Creatinine [Mass/Vol] 1.19 mg/dL 0.50 - 1.20 mg/dL [facility] eGFR, CKD-EPI, Female 47 Low - PINF [facility] Glucose [Mass/Vol] 90 mg/dL 70 - 179 mg/dL [facility] Interpretation and review of laboratory results Abnormal [facility] Osmolality Calc [Osmolality] 304 [facility] Potassium [Moles/Vol] 4.2 mmol/L 3.5 - 5.0 mmol/L [facility] Sodium [Moles/Vol] 142 mmol/L 135 - 145 mmol/L [facility] Urea nitrogen [Mass/Vol] 34 mg/dL High 7 - 25 mg/dL [facility] Urea nitrogen/Creatinine [Mass ratio] 29 mg/mg [facility] GLUCOSE POCon 08-07-2024 Glucose [Mass/Vol] 185 mg/dL High 70 - 179 mg/dL [facility] Interpretation and review of laboratory results Abnormal [facility] POC Sample Type CAPBL [facility] Glucose [Mass/Vol] 106 mg/dL 70 - 179 mg/dL [facility] POC Sample Type CAPBL [facility] Glucose [Mass/Vol] 104 mg/dL 70 - 179 mg/dL [facility] POC Sample Type CAPBL [facility] MAGNESIUMon 08-07-2024 Interpretation and review of laboratory results Normal [facility] Magnesium [Mass/Vol] 1.8 mg/dL 1.6 - 2 .6 mg/dL [facility] No Panel Informationon 08-07 [facility] CBC,PLATELETSon 08-06-2024 Hematocrit (Bld) [Volume fraction] 43.1 % Normal 34.9-44.3 [facility] Comment on above: Performed By: #### X M #### [facility] (DEFAULT) [address] [place] [address] Hemoglobin (Bld) [Mass/Vol] 13.7 g/dL Normal 11.4-15.2 [facility] Comment on above: Performed By: #### X M #### [facility] (DEFAULT) [address] [place] [address] MCV (RBC) [Entitic vol] 93.1 fL Normal 79.6-97.7 [facility] Comment on above: Performed By: #### X M #### [facility] (DEFAULT) [address] [place] [address] Mean Cell Hgb 29.6 pg Normal 25.9-33.9 [facility] Comment on above: Performed By: #### X M #### [facility] (DEFAULT) [address] [address] Mean Cell Hgb Conc 31.8 g/dL Normal 31.4-35.9 [facility] Comment on above: Performed By: #### X M #### [facility] (DEFAULT) [address] [address] Platelet mean volume (Bld) [Entitic vol] 11.1 fL Normal 8.5-12.2 [facility] Comment on above: Performed By: #### X M #### [facility] (DEFAULT) [address] [address] Platelets (Bld) [#/Vol] 214 10*3/uL Normal 150-393 [facility] Comment on above: Performed By: #### X M #### [facility] (DEFAULT) [address] [address] RBC (Bld) [#/Vol] 4.63 10*6/uL Normal 3.91-5.04 [facility] Comment on above: Performed By: #### X M #### [facility] (DEFAULT) [address] [address] RBC Distribution 13.9 % Normal 10.8-14.9 [facility] Comment on above: Performed By: #### X M #### [facility] (DEFAULT) [address] [place] [address] WBC (Bld) [#/Vol] 11.30 10*3/uL High 3.99-11.19 [facility] Comment on above: Performed By: #### X M #### [facility] (DEFAULT) [address] [address] Erythrocyte distribution width (RBC) [Ratio] 13.9 % 10.8 - 14.9 % [facility] Hematocrit (Bld) [Volume fraction] 44 % 34.9 - 44.3 % [facility] Hemoglobin (Bld) [Mass/Vol] 13.9 g/dL 11.4 - 15.2 g/dL [facility] Interpretation and review of laboratory results Abnormal [facility] MCH (RBC) [Entitic mass] 29.1 pg 25.9 - 33.9 pg [facility] MCHC (RBC) [Mass/Vol] 31.6 g/dL 31.4 - 35.9 g/dL [facility] MCV (RBC) [Entitic vol] 92.2 fL 79.6 - 97.7 fL [facility] Platelet mean volume (Bld) [Entitic vol] 10.7 fL 8.5 - 12.2 fL [facility] Platelets (Bld) [#/Vol] 216 10*3/uL 150 - 393 K/uL [facility] RBC (Bld) [#/Vol] 4.77 10*6/uL [facility] WBC (Bld) [#/Vol] 12.14 10*3/uL High 3.99 - 11.19 K/uL [facility] CHEM 7 (LYTES,BUN,CREA,GLUC) on 08-06-2024 Anion gap [Moles/Vol] 13 mmol/L Normal 7-17 [facility] Comment on above: Performed By: #### HEYDI PALACIOS7 ####[facility] (DEFAULT)[address] [place] [address] Chloride [Moles/Vol] 105 mmol/L Normal 98-108 [facility] Comment on above: Performed By: #### HEYDI PALACIOS7 ####[facility] (DEFAULT)[address] [place] [address] CO2 [Moles/Vol] 28 mmol/L Normal 21-31 [facility] Comment on above: Performed By: #### HEYDI PALACIOS7 ####[facility] (DEFAULT)[address] [place] [address] Creatinine [Mass/Vol] 1.19 mg/dL Normal 0.50-1.20 [facility] Comment on above: Performed By: #### HEYDI PALACIOS7 ####[facility] (DEFAULT)[address] [place] [address] GFR/1.73 sq M.predicted among non-blacks MDRD (S/P/Bld) [Vol rate/Area] 47 mL/min/{1.73_m2} Low >=60 [facility] Comment on above: Result Comment: Repo rted eGFR is based on the CKD-EPI 2020 equation using creatinine, age, and sex. Performed By: #### HEYDI PALACIOS7 ####[facility] (DEFAULT)[address] [place] [address] Glucose [Mass/Vol] 90 mg/dL Normal Nonfastin -179 mg/dL; Fastin-99 [facility] Comment on above: Performed By: #### CAMERON PALACIOS ####[facility] (DEFAULT)[address] [facility] [address] Osmolality [Osmolality] 304 mosm/kg Normal 278-305 [facility] Comment on above: Performed By: #### HEYDI PALACIOS7 ####[facility] (DEFAULT)[address] [place] [address] Potassium [Moles/Vol] 4.2 mmol/L Normal 3.5-5.0 [facility] Comment on above: Performed By: #### HEYDI PALACIOS7 ####[facility] (DEFAULT)[address] [place] [address] Sodium [Moles/Vol] 142 mmol/L Normal 135-145 [facility] Comment on above: Performed By: #### HEYDI PALACIOS7 ####[facility] (DEFAULT)[address] [place] [address] Urea nitrogen [Mass/Vol] 34 mg/dL High 7-25 [facility] Comment on above: Performed By: #### M HILARIA NGUYENM7 ####[facility] (DEFAULT)[address] [place] [address] Urea nitrogen/Creatinine [Mass ratio] 29 mg/mg Normal [facility] Comment on above: Performed By: #### M HILARIA NGUYENM7 ####[facility] (DEFAULT)[address] [place] [address] Anion gap [Moles/Vol] 14 mmol/L 7 - 17 mmol/L [facility] Chloride [Moles/Vol] 107 mmol/L 98 - 10 8 mmol/L [facility] CO2 [Moles/Vol] 27 mmol/L 21 - 31 mmol/L [facility] Creatinine [Mass/Vol] 1.19 mg/dL 0.50 - 1.20 mg/dL [facility] eGFR, CKD-EPI, Female 47 Low - PINF [facility] Glucose [Mass/Vol] 88 mg/dL 70 - 179 mg/dL [facility] Interpretation and review of laboratory results Abnormal [facility] Osmolality Calc [Osmolality] 307 High [facility] Potassium [Moles/Vol] 3.9 mmol/L 3.5 - 5.0 mmol/L [facility] Sodium [Moles/Vol] 144 mmol/L 135 - 145 mmol/L [facility] Urea nitrogen [Mass/Vol] 34 mg/dL High 7 - 25 mg/dL [facility] Urea nitrogen/Creatinine [Mass ratio] 29 mg/mg [facility] GLUCOSE POCon 08-06-2024 Glucose [Mass/Vol] 166 mg/dL 70 - 179 mg/dL [facility] Glucose [Mass/Vol] 106 mg/dL 70 - 179 mg/dL [facility] Glucose [Mass/Vol] 100 mg/dL 70 - 179 mg/dL [facility] POC Sample Type [facility] Glucose [Mass/Vol] 219 mg/dL High 70 - 179 mg/dL [facility] Interpretation and review of laboratory results Abnormal [facility] Glucose [Mass/Vol] 249 mg/dL High 70 - 179 mg/dL [facility] Glucose [Mass/Vol] 178 mg/dL 70 - 179 mg/dL [facility] Glucose [Mass/Vol] 194 mg/dL High 70 - 179 mg/dL [facility] Glucose [Mass/Vol] 93 mg/dL 70 - 179 mg/dL [facility] POC Sample Type VENO [facility] IONIZED CALCIUM, WHOLE BLOOD Ordered By: Zuleika Blunt on 08-06-2024 Calcium.ionized (Bld) [Moles/Vol] 4.72 mg/dL 4.60 - 5.30 mg/dL [facility] Interpretation and review of laboratory results Normal [facility] MAGNESIUMon 08-06-2024 Magnesium [Mass/Vol] 1.8 mg/dL Normal 1.6-2.6 [facility] Comment on above: Performed By: #### M , [facility] ####[facility] (DEFAULT)[address] [place] [address] Magnesium [Mass/Vol] 2.4 mg/dL 1.6 - 2 .6 mg/dL [facility] No Panel Informationon 08-06 POC Sample Type CAPBL [facility] Interpretation and review of laboratory results Abnormal [facility] Interpretation and review of laboratory results Normal [facility] PHOSPHATE, INORGANICon 08-06 Phosphate [Mass/Vol] 3.2 mg/dL 2.2 - 4 .6 mg/dL [facility] RF videography Hypopharynx a nd Esophagus Views W liquid and paste contrast PO during swallowingon 08-06-2024 RADIOLOGY RADIOLOGY [facility] Radiology Study observation (narrative) [facility] RF videography Hypopharynx a nd Esophagus Views W liquid and paste contrast PO during swallowingOrdered By: Gerry Resendez on 08-06-2024 [facility] Work Phone: SPEECH MODIFIED BARIUM SWALL OWon 08-06-2024 [facility] XR FLUORO MODIFIED BARIUM SW ALLOW [...] for specific therapeutic recommendations, please see the post form remover report of the speech pathologist. Examination performed by ARCADIO Nicole, under the direct supervision of Gerry Resendez M.D., who was immediately available on site during the examination. I personally viewed and interpreted these images and I have reviewed and approved this report. Normal [facility] CBC,PLATELETSon 08-05-2024 Hematocrit (Bld) [Volume fraction] 44.0 % Normal 34.9-44.3 [facility] Comment on above: Performed By: #### B LDCULT #### [facility] (DEFAULT) [address] [place] [address] Hemoglobin (Bld) [Mass/Vol] 13.9 g/dL Normal 11.4-15.2 [facility] Comment on above: Performed By: #### B LDCULT #### [facility] (DEFAULT) [address] [place] [address] MCV (RBC) [Entitic vol] 92.2 fL Normal 79.6-97.7 [facility] Comment on above: Performed By: #### B LDCULT #### [facility] (DEFAULT) [address] [place] [address] Mean Cell Hgb 29.1 pg Normal 25.9-33.9 [facility] Comment on above: Performed By: #### B LDCULT #### [facility] (DEFAULT) [address] [place] [address] Mean Cell Hgb Conc 31.6 g/dL Normal 31.4-35.9 [facility] Comment on above: Performed By: #### B LDCULT #### [facility] (DEFAULT) [address] [place] [address] Platelet mean volume (Bld) [Entitic vol] 10.7 fL Normal 8.5-12.2 [facility] Comment on above: Performed By: #### B LDCULT #### [facility] (DEFAULT) [address] [address] Platelets (Bld) [#/Vol] 216 10*3/uL Normal 150-393 [facility] Comment on above: Performed By: #### B LDCULT #### [facility] (DEFAULT) [address] [place] [address] RBC (Bld) [#/Vol] 4.77 10*6/uL Normal 3.91-5.04 [facility] Comment on above: Performed By: #### B LDCULT #### [facility] (DEFAULT) [address] [place] [address] RBC Distribution 13.9 % Normal 10.8-14.9 [facility] Comment on above: Performed By: #### B LDCULT #### [facility] (DEFAULT) [address] [place] [address] WBC (Bld) [#/Vol] 12.14 10*3/uL High 3.99-11.19 [facility] Comment on above: Performed By: #### B LDCULT #### [facility] (DEFAULT) [address] [place] [address] Erythrocyte distribution width (RBC) [Ratio] 13.9 % 10.8 - 14.9 % [facility] Hematocrit (Bld) [Volume fraction] 39.6 % 34.9 - 44.3 % [facility] Hemoglobin (Bld) [Mass/Vol] 12.6 g/dL 11.4 - 15.2 g/dL [facility] Interpretation and review of laboratory results Normal [facility] MCH (RBC) [Entitic mass] 29.3 pg 25.9 - 33.9 pg [facility] MCHC (RBC) [Mass/Vol] 31.8 g/dL 31.4 - 35.9 g/dL [facility] MCV (RBC) [Entitic vol] 92.1 fL 79.6 - 97.7 fL [facility] Platelet mean volume (Bld) [Entitic vol] 10.7 fL 8.5 - 12.2 fL [facility] Platelets (Bld) [#/Vol] 198 10*3/uL 150 - 393 K/uL [facility] RBC (Bld) [#/Vol] 4.3 10*6/uL [facility] WBC (Bld) [#/Vol] 10.61 10*3/uL 3.99 - 11.19 K/uL [facility] Hematocrit (Bld) [Volume fraction] 39.6 % Normal 34.9-44.3 [facility] Comment on above: Performed By: #### H EMOGC ####[facility] (DEFAULT)[address] [place] [address] Hemoglobin (Bld) [Mass/Vol] 12.6 g/dL Normal 11.4-15.2 [facility] Comment on above: Performed By: #### H EMOGC ####[facility] (DEFAULT)[address] [place] [address] MCV (RBC) [Entitic vol] 92.1 fL Normal 79.6-97.7 [facility] Comment on above: Performed By: #### H EMOGC ####[facility] (DEFAULT)[address] [facility] [place] [address] Mean Cell Hgb 29.3 pg Normal 25.9-33.9 [facility] Comment on above: Performed By: #### H EMOGC ####[facility] (DEFAULT)[address] [facility] [place] [address] Mean Cell Hgb Conc 31.8 g/dL Normal 31.4-35.9 [facility] Comment on above: Performed By: #### H EMOGC ####[facility] (DEFAULT)[address] [facility] [place] [address] Platelet mean volume (Bld) [Entitic vol] 10.7 fL Normal 8.5-12.2 [facility] Comment on above: Performed By: #### H EMOGC ####[facility] (DEFAULT)[address] [place] [address] Platelets (Bld) [#/Vol] 198 10*3/uL Normal 150-393 [facility] Comment on above: Performed By: #### H EMOGC ####[facility] (DEFAULT)[address] [place] [address] RBC (Bld) [#/Vol] 4.30 10*6/uL Normal 3.91-5.04 [facility] Comment on above: Performed By: #### H EMOGC ####[facility] (DEFAULT)[address] [facility] [place] [facility] [place] [address] RBC Distribution 13.9 % Normal 10.8-14.9 [facility] Comment on above: Performed By: #### H [facility] [place] ####[facility] (DEFAULT)[address] [place] [address] WBC (Bld) [#/Vol] 10.61 10*3/uL Normal 3.99-11.19 [facility] Comment on above: Performed By: #### H [facility] [place] ####[facility] (DEFAULT)[address] [place] [address] CHEM 7 (LYTES,BUN,CREA,GLUC) on 08-05-2024 Anion gap [Moles/Vol] 14 mmol/L Normal 7-17 [facility] Comment on above: Performed By: #### S URGP #### [facility] (DEFAULT) [address] [place] [address] Chloride [Moles/Vol] 107 mmol/L Normal 98-108 [facility] Comment on above: Performed By: #### S URGP #### [facility] (DEFAULT) [address] [place] [address] CO2 [Moles/Vol] 27 mmol/L Normal 21-31 [facility] Comment on above: Performed By: #### S URGP #### [facility] (DEFAULT) [address] [place] [address] Creatinine [Mass/Vol] 1.19 mg/dL Normal 0.50-1.20 [facility] Comment on above: Performed By: #### S URGP #### [facility] (DEFAULT) [address] [place] [address] GFR/1.73 sq M.predicted among non-blacks MDRD (S/P/Bld) [Vol rate/Area] 47 mL/min/{1.73_m2} Low >=60 [facility] Comment on above: Result Comment: Repo rted eGFR is based on the CKD-EPI 2020 equation using creatinine, age, and sex. Performed By: #### S URGP #### [facility] (DEFAULT) [address] [place] [address] Glucose [Mass/Vol] 88 mg/dL Normal Nonfastin -179 mg/dL; Fastin-99 [facility] Comment on above: Performed By: #### S URGP #### [facility] (DEFAULT) [address] [place] [address] Osmolality [Osmolality] 307 mosm/kg High 278-305 [facility] Comment on above: Performed By: #### S URGP #### [facility] (DEFAULT) [address] [place] [address] Potassium [Moles/Vol] 3.9 mmol/L Normal 3.5-5.0 [facility] Comment on above: Performed By: #### S URGP #### [facility] (DEFAULT) [address] [place] [address] Sodium [Moles/Vol] 144 mmol/L Normal 135-145 [facility] Comment on above: Performed By: #### S URGP #### [facility] (DEFAULT) [address] [place] [address] Urea nitrogen [Mass/Vol] 34 mg/dL High 7-25 [facility] Comment on above: Performed By: #### S URGP #### [facility] (DEFAULT) [address] [place] [address] Urea nitrogen/Creatinine [Mass ratio] 29 mg/mg Normal [facility] Comment on above: Performed By: #### S URGP #### [facility] (DEFAULT) [address] [place] [address] Anion gap [Moles/Vol] 14 mmol/L 7 - 17 mmol/L [facility] Chloride [Moles/Vol] 108 mmol/L 98 - 10 8 mmol/L [facility] CO2 [Moles/Vol] 25 mmol/L 21 - 31 mmol/L [facility] [facility] Creatinine [Mass/Vol] 1.45 mg/dL High 0.50 - 1.20 mg/dL [facility] eGFR, CKD-EPI, Female 37 Low - PINF [facility] Glucose [Mass/Vol] 242 mg/dL High 70 - 179 mg/dL [facility] Interpretation and review of laboratory results Abnormal [facility] Osmolality Calc [Osmolality] 315 High [facility] Potassium [Moles/Vol] 3.8 mmol/L 3.5 - 5.0 mmol/L [facility] Sodium [Moles/Vol] 143 mmol/L 135 - 145 mmol/L [facility] Urea nitrogen [Mass/Vol] 35 mg/dL High 7 - 25 mg/dL [facility] Urea nitrogen/Creatinine [Mass ratio] 24 mg/mg [facility] Anion gap [Moles/Vol] 14 mmol/L Normal 7-17 [facility] Comment on above: Performed By: #### X M #### [facility] (DEFAULT) [address] [address] Chloride [Moles/Vol] 108 mmol/L Normal 98-108 [facility] Comment on above: Performed By: #### X M #### [facility] (DEFAULT) [address] [address] CO2 [Moles/Vol] 25 mmol/L Normal 21-31 [facility] Comment on above: Performed By: #### X M #### [facility] (DEFAULT) [address] [address] Creatinine [Mass/Vol] 1.45 mg/dL High 0.50-1.20 [facility] Comment on above: Performed By: #### X M #### [facility] (DEFAULT) [address] [address] GFR/1.73 sq M.predicted among non-blacks MDRD (S/P/Bld) [Vol rate/Area] 37 mL/min/{1.73_m2} Low >=60 [facility] Comment on above: Result Comment: Repo rted eGFR is based on the CKD-EPI 2020 equation using creatinine, age, and sex. Performed By: #### X M #### [facility] (DEFAULT) [address] [place] [address] Glucose [Mass/Vol] 242 mg/dL High Nonfastin -179 mg/dL; Fastin-99 [facility] Comment on above: Performed By: #### X M #### [facility] (DEFAULT) [address] [place] [address] Osmolality [Osmolality] 315 mosm/kg High 278-305 [facility] Comment on above: Performed By: #### X M #### [facility] (DEFAULT) [address] [address] Potassium [Moles/Vol] 3.8 mmol/L Normal 3.5-5.0 [facility] Comment on above: Performed By: #### X M #### [facility] (DEFAULT) [address] [place] [address] Sodium [Moles/Vol] 143 mmol/L Normal 135-145 [facility] Comment on above: Performed By: #### X M #### [facility] (DEFAULT) [address] [address] Urea nitrogen [Mass/Vol] 35 mg/dL High 7-25 [facility] Comment on above: Performed By: #### X M #### [facility] (DEFAULT) [address] [place] [address] Urea nitrogen/Creatinine [Mass ratio] 24 mg/mg Normal [facility] Comment on above: Performed By: #### X M #### [facility] (DEFAULT) [address] [address] Cardiac echo study Procedure Ordered By: Ezequiel Figueroa on 08-05-2024 Ao ASC index 1.56 cm/m2 [facility] Work Phone: Ao peak fidel 1.23 [facility]: [phone] Ao SOV index 1.56 cm/m2 [facility] Work Phone: [phone] Ao STJ index 1.36 cm/m2 [facility] Work Phone: [phone] [facility]o VTI 24.81 [facility] Work Phone: [phone] Ascending [facility] 2.97 [facility] Phone: [phone] AV LVOT peak gradient 4 mmHg [facility] Work Phone: [phone] AV mean gradient 4 mmHg [facility] Work Phone: [phone] AV peak gradient 6 mmHG [facility] Work Phone: [phone] AV valve area 2.72 cm2 [facility] Work Phone: [phone] AV Velocity Ratio 0.8 [facility] Work Phone: [phone] MARKUS (continuity Vmax) 2.55 cm2 [facility] Work Phone: [phone] MARKUS (continuity VTI) 2.72 cm2 [facility] Work Phone: [phone] MARKUS index (continuity Vmax) 1.34 m/s [facility] Work Phone: [phone] MARKUS index (continuity VTI) 1.43 cm2/m2 [facility] Work Phone: [phone] Avg e' pk fidel 0.09 m/s [facility] Work Phone: [phone] Body surface area Derived from formula 1.9 m2 [facility] Work Phone: [phone] BP EF 55 % [facility] Work Phone: [phone] DI (Vmax) 0.8 [facility] Work Phone: [phone] DI (VTI) 0.86 m/2 [facility] Work Phone: [phone] e' lateral pk fdiel 0.0845 m/s [facility] Work Phone: [phone] e' lateral pk fidel 0.08 m/s [facility] Work Phone: [phone] e' septal pk fidel 0.0953 m/s [facility] Work Phone: [phone] e' septal pk fidel 0.1 m/s [facility] Work Phone: [phone] EF SP 2CH 56 [facility] Work Phone: [phone] EF SP 4CH 51 [facility] Work Phone: [phone] EST RAP 3 mmHg [facility] Work Phone: [phone] EST RVSP 29 mmHg [facility] Work Phone: [phone] FS 31 % [facility] Work Phone: [phone] IVC ostium 1.64 cm [facility] Work Phone: [phone] IVS 1.14 cm [facility] Work Phone: [phone] LA area 4CH 29.07 cm2 [facility] Work Phone: [phone] LA ESV BP (MOD) 86 mL [facility] Work Phone: [phone] LA ESV BP (MOD) index 45 mL/m2 [facility] Work Phone: [phone] LA ESV SP 2CH (MOD) 81 mL [facility] Work Phone: [phone] LA ESV SP 4CH (MOD) 93 mL [facility] Work Phone: [phone] LV EDV BP 88 mL [facility] Work Phone: [phone] LV EDV SP 2CH 85 mL [facility] Work Phone: [phone] LV EDV SP 4CH 86 mL [facility] Work Phone: [phone] LV ESV BP 40 mL [facility] Work Phone: [phone] LV ESV SP 2CH 37 mL [facility] Work Phone: [phone] LV ESV SP 4CH 42 mL [facility] Work Phone: [phone] LV mass 146.48 g [facility] Work Phone: [phone] LV Mass Index 77.1 g/m2 [facility] Work Phone: [phone] LV RWT 0.56 [facility] Work Phone: [phone] LV stroke volume BP (ml) 48 mL [facility] Work Phone: [phone] LV stroke volume index BP 25.26 mL/m2 [facility] Work Phone: [phone] LVIDD 3.93 cm [facility] Work Phone: [phone] LVIDS 2.7 cm [facility] Work Phone: [phone] LVOT area 3.17 cm2 [facility] Work Phone: [phone] LVOT diameter 2.01 cm [facility] Work Phone: [phone] LVOT peak fidel 0.99 m/s [facility] Work Phone: [phone] LVOT peak VTI 21.3 cm [facility] Work Phone: LVOT stroke volume 68 cm3 [facility] Work Phone: [phone] LVOT stroke volume index 35.55 ml/m2 [facility] Work Phone: [phone] MV mean gradient 3 mmHg [facility] Work Phone: [phone] MV peak gradient 6 [facility]: [phone] MV valve area by continuity eq 2.61 cm2 [facility] Work Phone: [phone] MV VTI 25.92 cm [facility] Work Phone: [phone] MVA (continuity VTI) 2.6 cm [facility] Work Phone: [phone] [facility] AV VTI RATIO PRE STRESS 0.86 [facility] Work Phone: [phone] [facility] ECHO LV BIPLANE SYSTOLIC VOLUME INDEX 21.05 mL/m2 [facility] Work Phone: [phone] [facility] ECHO LV BP DIASTOLIC VOLUME INDEX 46.32 mL/m2 [facility] Work Phone: [phone] PV mean gradient 3 mmHg [facility] Work Phone: [phone] PV peak gradient 6 mmHg [facility] Work Phone: [phone] PV PK FIDEL 1.23 m/s [facility] Work Phone: [phone] PW 1.11 cm [facility] Work Phone: [phone] RA area 4CH (MOD) 22.74 cm2 [facility] Work Phone: [phone] RA vol index 4CH (MOD) 36.32 mL/m2 [facility] Work Phone: [phone] Right atrium volume 4 chamber method of disks 69 [facility] Work Phone: [phone] RV Area diastolic 17.5 cm2 [facility] Work Phone: [phone] RV Area systolic 11.9 cm2 [facility] Work Phone: [phone] RV basal diam 4.56 cm [facility] Work Phone: [phone] RV Fractional area change 32 % [facility] Work Phone: RV long diam 6.91 cm [facility] Work Phone: RV mid diam 2.91 cm [facility] Work Phone: RV S' 12.81 cm/s [facility] Work Phone: RVOT peak gradient 5 mmHg [facility] Work Phone: RVOT peak fidel 1.07 m/s [facility] Work Phone: RVOT peak VTI 20.1 cm [facility] Work Phone: Sinus 2.97 cm [facility] Work Phone: STJ 2.58 cm [facility] Work Phone: Stroke Volume 68 cm/mL [facility] Work Phone: Stroke volume index 36 [facility] Work Phone: TAPSE 2.08 cm [facility] Work Phone: TR pk grad 26 mmHg [facility] Work Phone: TR pk fidel 2.53 m/s [facility] Work Phone: [facility] Work Phone: Cardiac echo study Procedure on 08-05-2024 [facility] Radiology Study observation (narrative) [facility] ECHOCARDIOGRAMon 08-05-2024 Echocardiography ? No prior [...] from the original result were not included. [facility] Facility [facility] Patient Information Patient Name ArmandOctober Legal [...] Role Read Date Ezequiel Figueroa DO Echo [place] 08/05/2024 Left Heart Measurements LV - Systole [...] long di (more content not included)... Normal [facility] GLUCOSE POCon 08-05-2024 Glucose [Mass/Vol] 228 mg/dL High 70 - 179 mg/dL [facility] Interpretation and review of laboratory results Abnormal [facility] POC Sample Type CAPBL [facility] IONIZED CALCIUM, WHOLE BLOOD on 08-05-2024 ICA 4.72 mg/dL Normal 4.60-5.30 [facility] Comment on above: Performed By: #### S URGP #### [facility] (DEFAULT) [address] [place] [address] ICA 4.69 mg/dL Normal 4.60-5.30 [facility] Comment on above: Performed By: #### S URGP #### [facility] (DEFAULT) [address] [place] [address] IONIZED CALCIUM, WHOLE BLOOD Ordered By: Jairo Layton on 08-05-2024 Calcium.ionized (Bld) [Moles/Vol] 4.69 mg/dL 4.60 - 5.30 mg/dL [facility] Interpretation and review of laboratory results Normal [facility] MAGNESIUMon 08-05-2024 Magnesium [Mass/Vol] 2.4 mg/dL Normal 1.6-2.6 [facility] Comment on above: Performed By: #### S URGP #### [facility] (DEFAULT) [address] [place] [address] Magnesium [Mass/Vol] 1.8 mg/dL 1.6 - 2 .6 mg/dL [facility] Magnesium [Mass/Vol] 1.8 mg/dL Normal 1.6-2.6 [facility] Comment on above: Performed By: #### X M #### [facility] (DEFAULT) [address] [place] [address] No Panel Informationon 08-05 Interpretation and review of laboratory results Normal [facility] PHOSPHATE, INORGANICon 08-05 Phosphorous 3.2 mg/dL Normal 2.2-4.6 [facility] Comment on above: Performed By: #### S URGP #### [facility] (DEFAULT) [address] [place] [address] Phosphate [Mass/Vol] 2.7 mg/dL 2.2 - 4 .6 mg/dL [facility] Phosphorous 2.7 mg/dL Normal 2.2-4.6 [facility] Comment on above: Performed By: #### X M #### [facility] (DEFAULT) [address] [place] [address] [facility] AGOrde red By: Madhavi Mcelroy on 08-05-2024 Interpretation and review of laboratory results Abnormal [facility] vWf Ag actual/normal IA (PPP) [Relative mass conc] 230 % High 50 - 180 % [facility] CBC,PLATELETSon 08-04-2024 Erythrocyte distribution width (RBC) [Ratio] 13.7 % 10.8 - 14.9 % [facility] Hematocrit (Bld) [Volume fraction] 40.8 % 34.9 - 44.3 % [facility] Hemoglobin (Bld) [Mass/Vol] 12.7 g/dL 11.4 - 15.2 g/dL [facility] Interpretation and review of laboratory results Abnormal [facility] MCH (RBC) [Entitic mass] 28.7 pg 25.9 - 33.9 pg [facility] MCHC (RBC) [Mass/Vol] 31.1 g/dL Low 31.4 - 35.9 g/dL [facility] MCV (RBC) [Entitic vol] 92.1 fL 79.6 - 97.7 fL [facility] Platelet mean volume (Bld) [Entitic vol] 10.8 fL 8.5 - 12.2 fL [facility] Platelets (Bld) [#/Vol] 228 10*3/uL 150 - 393 K/uL [facility] RBC (Bld) [#/Vol] 4.43 10*6/uL [facility] WBC (Bld) [#/Vol] 11.41 10*3/uL High 3.99 - 11.19 K[facility]L [facility] Hematocrit (Bld) [Volume fraction] 40.8 % Normal 34.9-44.3 [facility] Comment on above: Performed By: #### H EMOGC #### [facility] (DEFAULT) [address] [place] [address] Hemoglobin (Bld) [Mass/Vol] 12.7 g/dL Normal 11.4-15.2 [facility] Comment on above: Performed By: #### H EMOGC #### [facility] (DEFAULT) [address] [place] [address] MCV (RBC) [Entitic vol] 92.1 fL Normal 79.6-97.7 [facility] Comment on above: Performed By: #### H EMOGC #### [facility] (DEFAULT) [address] [place] [address] Mean Cell Hgb 28.7 pg Normal 25.9-33.9 [facility] Comment on above: Performed By: #### H EMOGC #### [facility] (DEFAULT) [address] [place] [address] Mean Cell Hgb Conc 31.1 g/dL Low 31.4-35.9 [facility] Comment on above: Performed By: #### H EMOGC #### [facility] (DEFAULT) [address] [place] [address] Platelet mean volume (Bld) [Entitic vol] 10.8 fL Normal 8.5-12.2 [facility] Comment on above: Performed By: #### H EMOGC #### [facility] (DEFAULT) [address] [place] [address] Platelets (Bld) [#/Vol] 228 10*3/uL Normal 150-393 [facility] Comment on above: Performed By: #### H EMOGC #### [facility] (DEFAULT) [address] [place] [address] RBC (Bld) [#/Vol] 4.43 10*6/uL Normal 3.91-5.04 [facility] Comment on above: Performed By: #### H [facility] [place] #### [facility] (DEFAULT) [address] [place] [address] RBC Distribution 13.7 % Normal 10.8-14.9 [facility] Comment on above: Performed By: #### H [facility] [place] #### [facility] (DEFAULT) [address] [place] [address] WBC (Bld) [#/Vol] 11.41 10*3/uL High 3.99-11.19 [facility] Comment on above: Performed By: #### H [facility] [place] #### [facility] (DEFAULT) [address] [place] [address] CHEM 7 (LYTES,BUN,CREA,GLUC) Ordered By: Lizette Canseco on 08-04-2024 Anion gap [Moles/Vol] 16 mmol/L 7 - 17 mmol/L [facility] Chloride [Moles/Vol] 109 mmol/L High 98 - 10 8 mmol/L [facility] CO2 [Moles/Vol] 24 mmol/L 21 - 31 mmol/L [facility] Creatinine [Mass/Vol] 1.47 mg/dL High 0.50 - 1.20 mg/dL [facility] eGFR, CKD-EPI, Female 36 Low - PINF [facility] Glucose [Mass/Vol] 181 mg/dL High 70 - 179 mg/dL [facility] Interpretation and review of laboratory results Abnormal [facility] Osmolality Calc [Osmolality] 312 High [facility] Potassium [Moles/Vol] 4 mmol/L 3.5 - 5.0 mmol/L [facility] Sodium [Moles/Vol] 145 mmol/L 135 - 145 mmol/L [facility] Urea nitrogen [Mass/Vol] 26 mg/dL High 7 - 25 mg/dL [facility] Urea nitrogen/Creatinine [Mass ratio] 18 mg/mg [facility] CHEM 7 (LYTES,BUN,CREA,GLUC) on 08-04-2024 Anion gap [Moles/Vol] 16 mmol/L Normal 7-17 [facility] Comment on above: Performed By: #### S URGP #### [facility] (DEFAULT) [address] [place] [address] Chloride [Moles/Vol] 109 mmol/L High 98-108 [facility] Comment on above: Performed By: #### S URGP #### [facility] (DEFAULT) [address] [place] [address] CO2 [Moles/Vol] 24 mmol/L Normal 21-31 [facility] Comment on above: Performed By: #### S URGP #### [facility] (DEFAULT) [address] [place] [address] Creatinine [Mass/Vol] 1.47 mg/dL High 0.50-1.20 [facility] Comment on above: Performed By: #### S URGP #### [facility] (DEFAULT) [address] [place] [address] GFR/1.73 sq M.predicted among non-blacks MDRD (S/P/Bld) [Vol rate/Area] 36 mL/min/{1.73_m2} Low >=60 [facility] Comment on above: Result Comment: Repo rted eGFR is based on the CKD-EPI 2020 equation using creatinine, age, and sex. Performed By: #### S URGP #### [facility] (DEFAULT) [address] [place] [address] Glucose [Mass/Vol] 181 mg/dL High Nonfastin -179 mg/dL; Fastin-99 [facility] Comment on above: Performed By: #### S URGP #### [facility] (DEFAULT) [address] [place] [address] Osmolality [Osmolality] 312 mosm/kg High 278-305 [facility] Comment on above: Performed By: #### S URGP #### [facility] (DEFAULT) [address] [place] [address] Potassium [Moles/Vol] 4.0 mmol/L Normal 3.5-5.0 [facility] Comment on above: Performed By: #### S URGP #### [facility] (DEFAULT) [address] [place] [address] Sodium [Moles/Vol] 145 mmol/L Normal 135-145 [facility] Comment on above: Performed By: #### S URGP #### [facility] (DEFAULT) [address] [place] [address] Urea nitrogen [Mass/Vol] 26 mg/dL High 7-25 [facility] Comment on above: Performed By: #### S URGP #### [facility] (DEFAULT) [address] [place] [address] Urea nitrogen/Creatinine [Mass ratio] 18 mg/mg Normal [facility] Comment on above: Performed By: #### S URGP #### [facility] (DEFAULT) [address] [place] [address] [address] HEAD WITHOUT CONTRASTon 0 08-04-2024 CT [...] sinuses are clear. IMPRESSION: Stable exam. Normal [facility] CT Head WO contraston 2024 RADIOLOGY RADIOLOGY [facility] CT Head WO contrastOrdered B y: Chirag Mendenhall on 08-04-2024 [facility] Work Phone: GLUCOSE POCon 08-04-2024 Glucose [Mass/Vol] 227 mg/dL High 70 - 179 mg/dL [facility] Interpretation and review of laboratory results Abnormal [facility] POC Sample Type [facility] Glucose [Mass/Vol] 235 mg/dL High 70 - 179 mg/dL [facility] Interpretation and review of laboratory results Abnormal [facility] POC Sample Type [facility] Glucose [Mass/Vol] 215 mg/dL High 70 - 179 mg/dL [facility] Interpretation and review of laboratory results Abnormal [facility] POC Sample Type CAPBL [facility] Glucose [Mass/Vol] 178 mg/dL 70 - 179 mg/dL [facility] Glucose [Mass/Vol] 157 mg/dL 70 - 179 mg/dL [facility] Glucose [Mass/Vol] 271 mg/dL High 70 - 179 mg/dL [facility] Glucose [Mass/Vol] 267 mg/dL High 70 - 179 mg/dL [facility] Glucose [Mass/Vol] 246 mg/dL High 70 - 179 mg/dL [facility] IONIZED CALCIUM, WHOLE BLOOD Ordered By: Laura Rodriguez on 08-04-2024 Calcium.ionized (Bld) [Moles/Vol] 4.8 mg/dL 4.60 - 5.30 mg/dL [facility] Interpretation and review of laboratory results Normal [facility]ON[facility] CALCIUM, WHOLE BLOOD on 08-04-2024 ICA 4.80 mg/dL Normal 4.60-5.30 [facility] Comment on above: Performed By: #### T YPEC #### [facility] (DEFAULT) [address] [place] [address] MAGNESIUMon 08-04-2024 Magnesium [Mass/Vol] 1.9 mg/dL 1.6 - 2 .6 mg/dL [facility] Magnesium [Mass/Vol] 1.9 mg/dL Normal 1.6-2.6 [facility] Comment on above: Performed By: #### X M #### [facility] (DEFAULT) [address] [place] [address] No Panel Informationon 08-04 POC Sample Type CAPBL [facility] Interpretation and review of laboratory results Abnormal [facility] Interpretation and review of laboratory results Normal [facility] PHOSPHATE, INORGANICon 08-04 Phosphate [Mass/Vol] 2.8 mg/dL 2.2 - 4 .6 mg/dL [facility] Phosphorous 2.8 mg/dL Normal 2.2-4.6 [facility] Comment on above: Performed By: #### X M #### [facility] (DEFAULT) [address] [place] [address] SODIUMon 08-04-2024 Interpretation and review of laboratory results Normal [facility] Sodium [Moles/Vol] 142 mmol/L 135 - 145 mmol/L [facility] Sodium [Moles/Vol] 142 mmol/L Normal 135-145 [facility] Comment on above: Order Comment: While on 3% Hypertonic Saline. Performed By: #### S URGP #### [facility] (DEFAULT) [address] [place] [address] Interpretation and review of laboratory results Normal [facility] Sodium [Moles/Vol] 141 mmol/L 135 - 145 mmol/L [facility] Sodium [Moles/Vol] 141 mmol/L Normal 135-145 [facility] Comment on above: Order Comment: 2 [...] bottle. Performed By: #### B LDCULT #### [facility] (DEFAULT) [address] [place] [address] Interpretation and review of laboratory results Normal [facility] Sodium [Moles/Vol] 143 mmol/L 135 - 145 mmol/L [facility] Sodium [Moles/Vol] 143 mmol/L Normal 135-145 [facility] Comment on above: Order Comment: While on 3% Hypertonic Saline. Performed By: #### [facility] [place] #### [facility] (DEFAULT) [address] [place] [address] ABORH TYPE RECONFIRMATIONon 08-03-2024 ABO/RH(D) TYPE Negative [facility] ABO/RH(D) TYPE Negative Normal [facility] Comment on above: Performed By: #### T YPEC #### [facility] (DEFAULT) [address] [address] CBC,PLATELETSon 08-03-2024 Erythrocyte distribution width (RBC) [Ratio] 13.2 % 10.8 - 14.9 % [facility] Hematocrit (Bld) [Volume fraction] 42.8 % 34.9 - 44.3 % [facility] Hemoglobin (Bld) [Mass/Vol] 13.5 g/dL 11.4 - 15.2 g/dL [facility] Interpretation and review of laboratory results Normal [facility] MCH (RBC) [Entitic mass] 29.2 pg 25.9 - 33.9 pg [facility] MCHC (RBC) [Mass/Vol] 31.5 g/dL 31.4 - 35.9 g/dL [facility] MCV (RBC) [Entitic vol] 92.4 fL 79.6 - 97.7 fL [facility] Platelet mean volume (Bld) [Entitic vol] 11.2 fL 8.5 - 12.2 fL [facility] Platelets (Bld) [#/Vol] 227 10*3/uL 150 - 393 K/uL [facility] RBC (Bld) [#/Vol] 4.63 10*6/uL [facility] WBC (Bld) [#/Vol] 8.43 10*3/uL 3.99 - 11.19 K/uL [facility] Hematocrit (Bld) [Volume fraction] 42.8 % Normal 34.9-44.3 [facility] Comment on above: Performed By: #### X M #### [facility] (DEFAULT) [address] [place] [address] Hemoglobin (Bld) [Mass/Vol] 13.5 g/dL Normal 11.4-15.2 [facility] Comment on above: Performed By: #### X M #### [facility] (DEFAULT) [address] [place] [address] MCV (RBC) [Entitic vol] 92.4 fL Normal 79.6-97.7 [facility] Comment on above: Performed By: #### X M #### [facility] (DEFAULT) [address] [place] [address] Mean Cell Hgb 29.2 pg Normal 25.9-33.9 [facility] Comment on above: Performed By: #### X M #### [facility] (DEFAULT) [address] [place] [address] Mean Cell Hgb Conc 31.5 g/dL Normal 31.4-35.9 [facility] Comment on above: Performed By: #### X M #### [facility] (DEFAULT) [address] [place] [address] Platelet mean volume (Bld) [Entitic vol] 11.2 fL Normal 8.5-12.2 [facility] Comment on above: Performed By: #### X M #### [facility] (DEFAULT) [address] [place] [address] Platelets (Bld) [#/Vol] 227 10*3/uL Normal 150-393 [facility] Comment on above: Performed By: #### X M #### [facility] (DEFAULT) [address] [place] [address] RBC (Bld) [#/Vol] 4.63 10*6/uL Normal 3.91-5.04 [facility] Comment on above: Performed By: #### X M #### [facility] (DEFAULT) [address] [place] [address] RBC Distribution 13.2 % Normal 10.8-14.9 [facility] Comment on above: Performed By: #### X M #### [facility] (DEFAULT) [address] [place] [address] WBC (Bld) [#/Vol] 8.43 10*3/uL Normal 3.99-11.19 [facility] Comment on above: Performed By: #### X M #### [facility] (DEFAULT) [address] [place] [address] CHEM 7 (LYTES,BUN,CREA,GLUC) on 08-03-2024 Anion gap [Moles/Vol] 16 mmol/L 7 - 17 mmol/L [facility] Chloride [Moles/Vol] 103 mmol/L 98 - 10 8 mmol/L [facility] CO2 [Moles/Vol] 23 mmol/L 21 - 31 mmol/L [facility] Creatinine [Mass/Vol] 1.35 mg/dL High 0.50 - 1.20 mg/dL [facility] eGFR, CKD-EPI, Female 40 Low - PINF [facility] Glucose [Mass/Vol] 151 mg/dL 70 - 179 mg/dL [facility] Interpretation and review of laboratory results Abnormal [facility] Osmolality Calc [Osmolality] 295 [facility] Potassium [Moles/Vol] 4.3 mmol/L 3.5 - 5.0 mmol/L [facility] Sodium [Moles/Vol] 138 mmol/L 135 - 145 mmol/L [facility] Urea nitrogen [Mass/Vol] 18 mg/dL 7 - 25 mg/dL [facility] Urea nitrogen/Creatinine [Mass ratio] 13 mg/mg [facility] Anion gap [Moles/Vol] 16 mmol/L Normal 7-17 [facility] Comment on above: Performed By: #### S URGP #### [facility] (DEFAULT) [address] [address] Chloride [Moles/Vol] 103 mmol/L Normal 98-108 [facility] Comment on above: Performed By: #### S URGP #### [facility] (DEFAULT) [address] [address] CO2 [Moles/Vol] 23 mmol/L Normal 21-31 [facility] Comment on above: Performed By: #### S URGP #### [facility] (DEFAULT) [address] [address] Creatinine [Mass/Vol] 1.35 mg/dL High 0.50-1.20 [facility] Comment on above: Performed By: #### S URGP #### [facility] (DEFAULT) [address] [address] GFR/1.73 sq M.predicted among non-blacks MDRD (S/P/Bld) [Vol rate/Area] 40 mL/min/{1.73_m2} Low >=60 [facility] Comment on above: Result Comment: Repo rted eGFR is based on the CKD-EPI 2020 equation using creatinine, age, and sex. Performed By: #### S URGP #### [facility] (DEFAULT) [address] [place] [address] Glucose [Mass/Vol] 151 mg/dL Normal Nonfastin -179 mg/dL; Fastin-99 [facility] Comment on above: Performed By: #### S URGP #### [facility] (DEFAULT) [address] [place] [address] Osmolality [Osmolality] 295 mosm/kg Normal 278-305 [facility] Comment on above: Performed By: #### S URGP #### [facility] (DEFAULT) [address] [place] [address] Potassium [Moles/Vol] 4.3 mmol/L Normal 3.5-5.0 [facility] Comment on above: Result Comment: Spec imen slightly hemolyzed. Potassium results may be falsey elevated by more than 0.5 mmol/L. Consider recollection. Performed By: #### S URGP #### [facility] (DEFAULT) [address] [place] [address] Sodium [Moles/Vol] 138 mmol/L Normal 135-145 [facility] Comment on above: Performed By: #### S URGP #### [facility] (DEFAULT) [address] [place] [address] Urea nitrogen [Mass/Vol] 18 mg/dL Normal 7-25 [facility] Comment on above: Performed By: #### S URGP #### [facility] (DEFAULT) [address] [place] [address] Urea nitrogen/Creatinine [Mass ratio] 13 mg/mg Normal [facility] Comment on above: Performed By: #### S URGP #### [facility] (DEFAULT) [address] [place] [address] CHEST WITH CONTRAST VASCU LAR TRAUMAon [...] have reviewed and approved this report. Normal [facility] CT Cervical spine WO contras ton 08-03-2024 RADIOLOGY RADIOLOGY [facility] CT Cervical spine WO contras tOrdered By: Alissa Chun on 08-03-2024 [facility] Work Phone: CT Chest W contrast Seth RADIOLOGY RADIOLOGY [facility] CT Chest W contrast IVOrdere d By: Kayla Newell on 08-03-2024 [facility] Work Phone: CT HEAD WITHOUT [...] since the MRI from earlier today Normal [facility] CT Head WO contraston 2024 Radiology Study observation (narrative) [facility] RADIOLOGY RADIOLOGY [facility] Radiology Study observation (narrative) [facility] CT ORBITS WITHOUT CONTRASTon 08-03-2024 [...] basal ganglia hyperdensity concerning for hemorrhage. Normal [facility] CT Orbit WO contraston 08-03 RADIOLOGY RADIOLOGY [facility] CT SPINE CERVICAL WITHOUT CO NTRASTon [...] No evidence of acute fractures identified Normal [facility] EXTRA MICROon 08-03-2024 [facility] GLUCOSE POCon 08-03-2024 Glucose [Mass/Vol] 161 mg/dL 70 - 179 mg/dL [facility] POC Sample Type CAPBL [facility] IONIZED CALCIUM, WHOLE BLOOD Ordered By: Alejandra Ness on 08-03-2024 Calcium.ionized (Bld) [Moles/Vol] 4.24 mg/dL Low 4.60 - 5.30 mg/dL [facility] Interpretation and review of laboratory results Abnormal [facility] IONIZED CALCIUM, WHOLE BLOOD on 08-03-2024 ICA 4.24 mg/dL Low 4.60-5.30 [facility] Comment on above: Performed By: #### H [facility] [place] #### [facility] (DEFAULT) [address] [place] [address] MAGNESIUMon 08-03-2024 Magnesium [Mass/Vol] 2.1 mg/dL 1.6 - 2 .6 mg/dL [facility] Magnesium [Mass/Vol] 2.1 mg/dL Normal 1.6-2.6 [facility] Comment on above: Performed By: #### S URGP #### [facility] (DEFAULT) [address] [place] [address] MR Brain WO contraston 08-03 RADIOLOGY RADIOLOGY [facility] Radiology Study observation (narrative) [facility] MR Cervical spine WO contras ton 08-03-2024 RADIOLOGY RADIOLOGY [facility] Radiology Study observation (narrative) [facility] MR Cervical spine WO contras tOrdered By: Kuldeep Tavares on 08-03-2024 [facility] Work Phone: MRI BRAIN WITHOUT [...] tiny 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 Normal [facility] MRI SPINE CERVICAL WITHOUT C ONTRASTon [...] have reviewed and approved this report. Normal [facility] NT-PRO B-TYPE NATRIURETIC PE PTIDEon 08-03-2024 Interpretation and review of laboratory results Abnormal [facility] Natriuretic peptide.B prohormone N-Terminal IA [Mass/Vol] 1115 pg/mL High NINF - 540 pg/mL [facility] No Panel Informationon 08-03 RADIOLOGY RADIOLOGY [facility] Interpretation and review of laboratory results Normal [facility] No Panel InformationOrdered By: Richard Sánchez on 08-03-2024 [facility] Work Phone: PHOSPHATE, INORGANICon 08-03 Phosphate [Mass/Vol] 3.5 mg/dL 2.2 - 4 .6 mg/dL [facility] Phosphorous 3.5 mg/dL Normal 2.2-4.6 [facility] Comment on above: Performed By: #### S URGP #### [facility] (DEFAULT) [address] [place] [address] SCREEN: MRSA/MSSAOrdered By: Gail Collado on 08-03-2024 Interpretation and review of laboratory results Normal [facility] Methicillin Resistant S. Aureus By Pcr Negative Negative [facility] Staphylococcus Aureus By Pcr Negative Negative [facility] SODIUMon 08-03-2024 Interpretation and review of laboratory results Normal [facility] Sodium [Moles/Vol] 139 mmol/L 135 - 145 mmol/L [facility] Sodium [Moles/Vol] 139 mmol/L Normal 135-145 [facility] Comment on above: Order Comment: While on 3% Hypertonic Saline. Performed By: #### N AO ####[facility] (DEFAULT)[address] [place] [address] Interpretation and review of laboratory results Abnormal [facility] Sodium [Moles/Vol] 134 mmol/L Low 135 - 145 mmol/L [facility] Sodium [Moles/Vol] 134 mmol/L Low 135-145 [facility] Comment on above: Order Comment: While on 3% Hypertonic Saline. Performed By: #### H [facility] [place] #### [facility] (DEFAULT) [address] [place] [address] XR ABDOMEN 1 VIEW PORTABLEon 08-03-2024 XR [...] proximal second portion of the duodenum. Normal [facility] XR Abdomen Single viewon RADIOLOGY RADIOLOGY [facility] Radiology Study observation (narrative) [facility] XR Abdomen Single viewOrdere d By: Huey Gibson on 08-03-2024 [facility] XR ELBOW RIGHT 2 VIEWSon XR ELBOW RIGHT 2 VIEWS EXAM: XR ELBOW RI GHT 2 VIEWS, XR HUMERUS RIGHT 2+ VIEWS, XR WRIST RIGHT 3+ VIEWS, 08/02/2024 23:24 PM (accession [id number]), 08/02/2024 23:24 PM (accession [id number]), 08/02/2024 23:23 PM (accession [id number]) COMPARISON: No prior studies available for comparison. [...] dislocation. IMPRESSION: No acute osseous abnormality. Normal [facility] XR HUMERUS RIGHT 2+ VIEWSon 08-03-2024 XR HUMERUS RIGHT 2+ VIEWS EXAM: XR ELBOW RIGHT 2 VIEWS, XR HUMERUS RIGHT 2+ VIEWS, XR WRIST RIGHT 3+ VIEWS, 08/02/2024 23:24 PM (accession [id number]), 08/02/2024 23:24 PM (accession [id number]), 08/02/2024 23:23 PM (accession [id number]) COMPARISON: No prior studies available for comparison. [...] dislocation. IMPRESSION: No acute osseous abnormality. Normal [facility] XR WRIST RIGHT 3+ VIEWSon XR WRIST RIGHT 3+ VIEWS EXAM: XR ELBOW R IGHT 2 VIEWS, XR HUMERUS RIGHT 2+ VIEWS, XR WRIST RIGHT 3+ VIEWS, 08/02/2024 23:24 PM (accession [id number]), 08/02/2024 23:24 PM (accession [id number]), 08/02/2024 23:23 PM (accession [id number]) COMPARISON: No prior studies available for comparison. [...] dislocation. IMPRESSION: No acute osseous abnormality. Normal [facility] 12 Lead EKGon 08-02-2024 12 Lead EKG [facility] [address] [place] [address] 12 Lead EKG 08/02/24 1309 MR#: [id number] Acct: [id number] Name: LINDSAY ACUNA Rep #: [id number] : 1945 78 From: Mj Benavides MD [...] Confirmed by MAKAYLA LAWSON, MJ ([id number]), video effects editor NAIMA BEARDEN ([id number]) on 08/05/2024 6:47:07 AM Referred By: Confirmed By: MJ BENAVIDES MD 08/05/24 0647 Date Mj Benavides MD CC: Dr. Pieter Morgan MD; Dr. Kameron Caruso MD Signed Normal [facility] Absolute lymphocyte countOrd ered By: Pieter Morgan on 08-02-2024 Lymphocytes Auto (Unsp spec) [#/Vol] 1.56 10*3/uL 0.83-4.51 [facility] Absolute neutrophil countOrd ered By: Pieter Morgan on 08-02-2024 Neutrophils (Bld) [#/Vol] 6.2 10*3/uL 2.0-7.7 [facility] Activated partial thrombopla stin time (aPTT) in platelet poor plasma by coagulation aOrdered By: Pieter Morgan on 08-02-2024 aPTT Coag (PPP) [Time] 28.4 s 24.1-36.2 [facility] Anion gap in Serum or Plasma Ordered By: Pieter Morgan on 08-02-2024 Anion gap [Moles/Vol] 12 mmol/L - [facility] Automated lymphocyte count a s percentage of total leukocytesOrdered By: Pieter Morgan on 08-02-2024 Lymphocytes/100 WBC Auto (Unsp spec) 17.9 % Low [facility] BUN/creatinine ratioOrdered By: Pieter Morgan on 08-02-2024 Urea nitrogen/Creatinine [Mass ratio] 11.6 mg/mg 03-03 [facility] Basic Metabolic Profile (BMP )on 08-02-2024 BUN/CRE 11.6 RATIO Normal - [facility] Comment on above: Performed By: #### L 300.4310, L501.4021, L300.3900, L500.2500, L100.0100 #### [facility] [address] [place], [address] Calcium [Mass/Vol] 9.0 mg/dL Normal 7.6-11.0 [facility] Comment on above: Performed By: #### L 300.4310, L501.4021, L300.3900, L500.2500, L100.0100 #### [facility] [address] [place], [address] Chloride [Moles/Vol] 98 mmol/L Normal 98-108 [facility] Comment on above: Performed By: #### L 300.4310, L501.4021, L300.3900, L500.2500, L100.0100 #### [facility] [address] [place], [address] CO2 [Moles/Vol] 22.0 mmol/L Normal 21.0-32.0 [facility] Comment on above: Performed By: #### L 300.4310, L501.4021, L300.3900, L500.2500, L100.0100 #### [facility] [address] [place], [address] Creatinine [Mass/Vol] 1.74 mg/dL High 0.70-1.20 [facility] Comment on above: Performed By: #### L 300.4310, L501.4021, L300.3900, L500.2500, L100.0100 #### [facility] [address] [place], [address] ECRCL 27.14 ml/min Low 50-250 [facility] Comment on above: Performed By: #### L 300.4310, L501.4021, L300.3900, L500.2500, L100.0100 #### [facility] [address] [place], [address] GAP 12 Normal 5-15 [facility] Comment on above: Performed By: #### L 300.4310, L501.4021, L300.3900, L500.2500, L100.0100 #### [facility] [address] [place], [address] GFR/1.73 sq M.predicted among non-blacks MDRD (S/P/Bld) [Vol rate/Area] 29 mL/min/{1.73_m2} Low >60 [facility] Comment on above: Result Comment: mL/m in/1.73m2 CKD-EPI Creatinine Equation (2020) Performed By: #### L 300.4310, L501.4021, L300.3900, L500.2500, L100.0100 #### [facility] [address] [place], [address] Glucose [Mass/Vol] 235 mg/dL High 70-99 [facility] Comment on above: Performed By: #### L 300.4310, L501.4021, L300.3900, L500.2500, L100.0100 #### [facility] [address] [place], [address] Potassium [Moles/Vol] 4.2 mmol/L Normal 3.3-5.1 [facility] Comment on above: Performed By: #### L 300.4310, L501.4021, L300.3900, L500.2500, L100.0100 #### [facility] [address] [place], [address] Sodium [Moles/Vol] 132 mmol/L Low 133-145 [facility] Comment on above: Performed By: #### L 300.4310, L501.4021, L300.3900, L500.2500, L100.0100 #### [facility] [address] [place], [address] Urea nitrogen [Mass/Vol] 20 mg/dL High 4-19 [facility] Comment on above: Performed By: #### L 300.4310, L501.4021, L300.3900, L500.2500, L100.0100 #### [facility] [address] [place], [address] Basophil percentageOrdered B y: Pieter Cathy on 08-02-2024 Basophils/100 WBC (Bld) 0.5 % 0-1 [facility] CBC W/Diff, Automatedon - Absolute Lymph 1.56 X10 3/uL Normal 0.83-4.51 [facility] Comment on above: Performed By: #### L 300.4310, L501.4021, L300.3900, L500.2500, L100.0100 #### [facility] [address] [place], [address] Absolute Neut 6.2 X10 3/uL Normal 2.0-7.7 [facility] Comment on above: Performed By: #### L 300.4310, L501.4021, L300.3900, L500.2500, L100.0100 #### [facility] [address] [place], [address] Basophils/100 WBC (Bld) 0.5 % Normal 0-1 [facility] Comment on above: Performed By: #### L 300.4310, L501.4021, L300.3900, L500.2500, L100.0100 #### [facility] [address] [place], [address] Eosinophils/100 WBC (Bld) 1.0 % Normal 0-5 [facility] Comment on above: Performed By: #### L 300.4310, L501.4021, L300.3900, L500.2500, L100.0100 #### [facility] [address] [place], [address] Erythrocyte distribution width (RBC) [Ratio] 13.3 % Normal 11.6-14.6 [facility] Comment on above: Performed By: #### L 300.4310, L501.4021, L300.3900, L500.2500, L100.0100 #### [facility] [address] [place], [address] Hematocrit (Bld) [Volume fraction] 42.0 % Normal 37-47 [facility] Comment on above: Performed By: #### L 300.4310, L501.4021, L300.3900, L500.2500, L100.0100 #### [facility] [address] [place], [address] Hemoglobin (Bld) [Mass/Vol] 13.8 g/dL Normal 12.0-15.0 [facility] Comment on above: Performed By: #### L 300.4310, L501.4021, L300.3900, L500.2500, L100.0100 #### [facility] [address] [place], [address] IG% 0.300 Normal 0.0-0.9 [facility] Comment on above: Result Comment: IG% - Immature Granulocytes (promyelocytes, myelocytes and metamyelocytes) > 1% indicates that a LEFT SHIFT is Present. Performed By: #### L 300.4310, L501.4021, L300.3900, L500.2500, L100.0100 #### [facility] [address] [place], [address] Lymphocytes/100 WBC (Bld) 17.9 % Low 19-41 [facility] Comment on above: Performed By: #### L 300.4310, L501.4021, L300.3900, L500.2500, L100.0100 #### [facility] [address] [place], [address] MCH (RBC) [Entitic mass] 30.3 pg Normal 27.0-32.0 [facility] Comment on above: Performed By: #### L 300.4310, L501.4021, L300.3900, L500.2500, L100.0100 #### [facility] [address] [place], [address] MCHC (RBC) [Mass/Vol] 32.9 g/dL Normal 32-36 [facility] Comment on above: Performed By: #### L 300.4310, L501.4021, L300.3900, L500.2500, L100.0100 #### [facility] [address] [place], [address] MCV (RBC) [Entitic vol] 92.1 fL Normal 81-99 [facility] Comment on above: Performed By: #### L 300.4310, L501.4021, L300.3900, L500.2500, L100.0100 #### [facility] [address] [place], [address] Monocytes/100 WBC (Bld) 8.9 % Normal 0-10 [facility] Comment on above: Performed By: #### L 300.4310, L501.4021, L300.3900, L500.2500, L100.0100 #### [facility] [address] [place], [address] Neutrophils/100 WBC (Bld) 71.4 % High 47-70 [facility] Comment on above: Performed By: #### L 300.4310, L501.4021, L300.3900, L500.2500, L100.0100 #### [facility] [address] [place], [address] Nucleated RBC (Bld) [#/Vol] 0 10*3/uL Normal 0-5 [facility] Comment on above: Performed By: #### L 300.4310, L501.4021, L300.3900, L500.2500, L100.0100 #### [facility] [address] [place], [address] Platelet mean volume (Bld) [Entitic vol] 10.7 fL Normal 6.2-12.0 [facility] Comment on above: Performed By: #### L 300.4310, L501.4021, L300.3900, L500.2500, L100.0100 #### [facility] [address] [place], [address] Platelets (Bld) [#/Vol] 214 10*3/uL Normal 150-450 [facility] Comment on above: Performed By: #### L 300.4310, L501.4021, L300.3900, L500.2500, L100.0100 #### [facility] [address] [place], [address] RBC (Bld) [#/Vol] 4.56 10*6/uL Normal 4.2-5.4 [facility] Comment on above: Performed By: #### L 300.4310, L501.4021, L300.3900, L500.2500, L100.0100 #### [facility] [address] [place], [address] RDW SD 45.3 fl High 35.1-43.9 [facility] Comment on above: Performed By: #### L 300.4310, L501.4021, L300.3900, L500.2500, L100.0100 #### [facility] [address] [place], [address] WBC (Bld) [#/Vol] 8.7 10*3/uL Normal 4.4-11.0 [facility] Comment on above: Performed By: #### L 300.4310, L501.4021, L300.3900, L500.2500, L100.0100 #### [facility] [address] [place], [address] CBC,PLATELETSon 08-02-2024 Erythrocyte distribution width (RBC) [Ratio] 13.3 % 10.8 - 14.9 % [facility] Hematocrit (Bld) [Volume fraction] 43.8 % 34.9 - 44.3 % [facility] Hemoglobin (Bld) [Mass/Vol] 14 g/dL 11.4 - 15.2 g/dL [facility] Interpretation and review of laboratory results Normal [facility] MCH (RBC) [Entitic mass] 29.4 pg 25.9 - 33.9 pg [facility] [facility] MCHC (RBC) [Mass/Vol] 32 g/dL 31.4 - 35.9 g/dL [facility] MCV (RBC) [Entitic vol] 92 fL 79.6 - 97.7 fL [facility] Platelet mean volume (Bld) [Entitic vol] 10.8 fL 8.5 - 12.2 fL [facility] Platelets (Bld) [#/Vol] 245 10*3/uL 150 - 393 K/uL [facility] RBC (Bld) [#/Vol] 4.76 10*6/uL [facility] WBC (Bld) [#/Vol] 8.16 10*3/uL 3.99 - 11.19 K/uL [facility] Hematocrit (Bld) [Volume fraction] 43.8 % Normal 34.9-44.3 [facility] Comment on above: Performed By: #### B LDCULT #### [facility] (DEFAULT) [address] [place] [address]27 Hemoglobin (Bld) [Mass/Vol] 14.0 g/dL Normal 11.4-15.2 [facility] Comment on above: Performed By: #### B LDCULT #### [facility] (DEFAULT) [address] [place] [address] 15326 MCV (RBC) [Entitic vol] 92.0 fL Normal 79.6-97.7 [facility] Comment on above: Performed By: #### B LDCULT #### [facility] (DEFAULT) [address] [place] [address] 67098 Mean Cell Hgb 29.4 pg Normal 25.9-33.9 [facility] Comment on above: Performed By: #### B LDCULT #### [facility] (DEFAULT) [address] [place] [address] 72476 Mean Cell Hgb Conc 32.0 g/dL Normal 31.4-35.9 [facility] Comment on above: Performed By: #### B LDCULT #### [facility] (DEFAULT) [address] [place] [address] 07149 Platelet mean volume (Bld) [Entitic vol] 10.8 fL Normal 8.5-12.2 [facility] Comment on above: Performed By: #### B LDCULT #### [facility] (DEFAULT) [address] [place] [address] 58708 Platelets (Bld) [#/Vol] 245 10*3/uL Normal 150-393 [facility] Comment on above: Performed By: #### B LDCULT #### [facility] (DEFAULT) [address] [place] [address] 28296 RBC (Bld) [#/Vol] 4.76 10*6/uL Normal 3.91-5.04 [facility] Comment on above: Performed By: #### B LDCULT #### [facility] (DEFAULT) [address] [place] [address] 42378 RBC Distribution 13.3 % Normal 10.8-14.9 [facility] Comment on above: Performed By: #### Roby LDCULT #### [facility] (DEFAULT) [address] [place] [address] 96008 WBC (Bld) [#/Vol] 8.16 10*3/uL Normal 3.99-11.19 [facility] Comment on above: Performed By: #### B LDCULT #### [facility] (DEFAULT) [address] [place] [address] 99858 CHEM 7 (LYTES,BUN,CREA,GLUC) on 08-02-2024 Anion gap [Moles/Vol] 16 mmol/L 7 - 17 mmol/L [facility] Chloride [Moles/Vol] 105 mmol/L 98 - 10 8 mmol/L [facility] CO2 [Moles/Vol] 22 mmol/L 21 - 31 mmol/L [facility] Creatinine [Mass/Vol] 1.37 mg/dL High 0.50 - 1.20 mg/dL [facility] eGFR, CKD-EPI, Female 39 Low - PINF [facility] Glucose [Mass/Vol] 210 mg/dL High 70 - 179 mg/dL [facility] Osmolality Calc [Osmolality] 299 [facility] Potassium [Moles/Vol] 3.7 mmol/L 3.5 - 5.0 mmol/L [facility] Sodium [Moles/Vol] 139 mmol/L 135 - 145 mmol/L [facility] Urea nitrogen [Mass/Vol] 18 mg/dL 7 - 25 mg/dL [facility] Urea nitrogen/Creatinine [Mass ratio] 13 mg/mg [facility] Anion gap [Moles/Vol] 16 mmol/L Normal 7-17 [facility] Comment on above: Performed By: #### [facility] [place] #### [facility] (DEFAULT) [address] [address] Chloride [Moles/Vol] 105 mmol/L Normal 98-108 [facility] Comment on above: Performed By: #### [facility] [place] #### [facility] (DEFAULT) [address] [address] CO2 [Moles/Vol] 22 mmol/L Normal 21-31 [facility] Comment on above: Performed By: #### H [facility] [place] #### [facility] (DEFAULT) [address] [address] Creatinine [Mass/Vol] 1.37 mg/dL High 0.50-1.20 [facility] Comment on above: Performed By: #### H [facility] [place] #### [facility] (DEFAULT) [address] [address] GFR/1.73 sq M.predicted among non-blacks MDRD (S/P/Bld) [Vol rate/Area] 39 mL/min/{1.73_m2} Low >=60 [facility] Comment on above: Result Comment: Repo rted eGFR is based on the CKD-EPI 2020 equation using creatinine, age, and sex. Performed By: #### H [facility] [place] #### [facility] (DEFAULT) [address] [address] Glucose [Mass/Vol] 210 mg/dL High Nonfastin -179 mg/dL; Fastin-99 [facility] Comment on above: Performed By: #### H EMOGC #### [facility] (DEFAULT) [address] [place] [address] Osmolality [Osmolality] 299 mosm/kg Normal 278-305 [facility] Comment on above: Performed By: #### H EMOGC #### [facility] (DEFAULT) [address] [place] [address]28 Potassium [Moles/Vol] 3.7 mmol/L Normal 3.5-5.0 [facility] Comment on above: Performed By: #### H EMOGC #### [facility] (DEFAULT) [address] [place] [address] 84982 Sodium [Moles/Vol] 139 mmol/L Normal 135-145 [facility] Comment on above: Performed By: #### H EMOGC #### [facility] (DEFAULT) [address] [place] [address] 74789 Urea nitrogen [Mass/Vol] 18 mg/dL Normal 7-25 [facility] Comment on above: Performed By: #### H EMOGC #### [facility] (DEFAULT) [address] [place] [address] 24293 Urea nitrogen/Creatinine [Mass ratio] 13 mg/mg Normal [facility] Comment on above: Performed By: #### H EMOGC #### [facility] (DEFAULT) [address] [place] [address] ABDOMEN/PELVIS WITH CONTR AST VASCULAR TRAUMAon [...] grade: None. Kidney trauma grade: None. Normal [facility] CT Abdomen and Pelvis W cont rast Seth 08-02-2024 RADIOLOGY RADIOLOGY [facility] CT Abdomen and Pelvis W cont rast IVOrdered By: Edson Head on 08-02-2024 [facility] Work Phone: CT Cervical spine WO contras ton 08-02-2024 Radiology Study observation (narrative) [facility] CT Orbit WO contraston 08-02 Radiology Study observation (narrative) [facility] Carbon dioxide, total [Moles /volume] in Central venous bloodOrdered By: Pieter Morgan on 08-02-2024 CO2 [Moles/Vol] 22.0 mmol/L 21.0-32.0 [facility] Chloride assayOrdered By: Racheal Morgan on 08-02-2024 Chloride [Moles/Vol] 98 mmol/L 98-108 [facility] Emergency Department Summary on 08-02-2024 Emergency Department Summary [facility] Medical Records Department [address] [place] [address] Emergency Department Summary 08/02/24 MR#: [id number] Acct: [id number] Name: LINDSAY ACUNA Rep #: [id number] : 1945 78 From: Pieter Morgan MD [...] the EMR. states they returned home from [facility] about 1.5-2 weeks ago, and they both had colds. He is better, but she is "on round 2." [facility] Medical History Paroxysmal atrial fibrillation with [...] normal respir (more content not included)... Normal [facility] Eosinophil percentageOrdered By: Pieter Morgan on 08-02-2024 Eosinophils/100 WBC (Bld) 1.0 % 0-5 [facility] Erythrocyte distribution wid th ratioOrdered By: Pieter Morgan on 08-02-2024 Erythrocyte distribution width (RBC) [Ratio] 13.3 % 11.6-14.6 [facility] Erythrocyte distribution wid th standard deviationOrdered By: Pieter Morgan on 08-02-2024 Erythrocyte distribution width (RBC) [Entitic vol] 45.3 fL High 35.1-43.9 [facility] Erythrocyte distribution width (RBC) [Ratio] 45.3 fl High 35.1-43.9 [facility] Estimation of creatinine mackenzie aranceOrdered By: Pieter Morgan on 08-02-2024 Estimated Creatinine Clearance Calc 27.14 ml/min Low 50-250 [facility] GFR/1.73 sq M.predicted lana g non-blacks MDRD (S/P/Bld) [Vol rate/Area]Ordered By: Pieter Morgan on 08-02-2024 Estimated GFR (MDRD) Non-Af Amer 29 Low >60 [facility] Comment on above: mL/min/1.73m2 CKD-EP I Creatinine Equation (2020) Glomerular filtration rate ( GFR) estimation/1.73 sq m using serum, plasma, or whole bOrdered By: Pieter Morgan on 08-02-2024 GFR/1.73 sq M.predicted among non-blacks MDRD (S/P/Bld) [Vol rate/Area] 29 mL/min/{1.73_m2} Low >60 [facility] Comment on above: mL/min/1.73m2 CKD-EP I Creatinine Equation (2020) HEMOGLOBIN A1Con 08-02-2024 Average glucose Estimated from glycated hemoglobin (Bld) [Mass/Vol] 177 mg/dL [facility] HbA1c (Bld) [Mass fraction] 7.8 % High 4.7 - 5.6 % [facility] Interpretation and review of laboratory results Abnormal [facility] Glucose [Mass/Vol] 177 mg/dL Normal [facility] Comment on above: Performed By: #### H [facility] [place] #### [facility] (DEFAULT) [address] [place] [address] Hemoglobin A1C HPLC 7.8 % High 4.7-5.6 [facility] Comment on above: Performed By: #### H [facility] [place] #### [facility] (DEFAULT) [address] [place] [address] HEPATIC FUNCTION PANELon Albumin [Mass/Vol] 3.5 g/dL 3.5 - 5.0 g/dL [facility] ALP [Catalytic activity/Vol] 117 U/L 32 - 126 U/L [facility] ALT [Catalytic activity/Vol] 10 U/L 9 - 48 U/L [facility] AST [Catalytic activity/Vol] 17 U/L 10 - 39 U/L [facility] Bilirubin [Mass/Vol] 0.6 mg/dL NINF - 1.5 mg/dL [facility] Bilirubin.direct [Mass/Vol] 0.1 mg/dL NINF - 0.3 mg/dL [facility] Protein [Mass/Vol] 6.3 g/dL Low 6.4 - 8.3 g/dL [facility] Albumin [Mass/Vol] 3.5 g/dL Normal 3.5-5.0 [facility] Comment on above: Performed By: #### H [facility] [place] #### [facility] (DEFAULT) [address] [place] [address] ALP [Catalytic activity/Vol] 117 U/L Normal 32-126 [facility] Comment on above: Performed By: #### H EMOGC #### [facility] (DEFAULT) [address] [place] [address] ALT [Catalytic activity/Vol] 10 U/L Normal 9-48 [facility] Comment on above: Performed By: #### H EMOGC #### [facility] (DEFAULT) [address] [place] [address] AST [Catalytic activity/Vol] 17 U/L Normal 10-39 [facility] Comment on above: Performed By: #### H EMOGC #### [facility] (DEFAULT) [address] [place] [address]130 Bilirubin [Mass/Vol] 0.6 mg/dL Normal <1.5 [facility] Comment on above: Performed By: #### H EMOGC #### [facility] (DEFAULT) [address] [place] [address] 8[address]57 Bilirubin.indirect [Mass/Vol] 0.1 mg/dL Normal <0.3 [facility] Comment on above: Performed By: #### H EMOGC #### [facility] (DEFAULT) [address] [place] [address] 21936 Protein [Mass/Vol] 6.3 g/dL Low 6.4-8.3 [facility] Comment on above: Performed By: #### H EMOGC #### [facility] (DEFAULT) [address] [place] [address] HIGH SENSITIVITY TROPONIN I - SINGLE ORDERon 08-02-2024 Interpretation and review of laboratory results Normal [facility] Troponin I.cardiac High sensitivity method [Mass/Vol] 9 ng/L NINF - 34 ng/L [facility] hs-Troponin I 9 ng/L Normal <34 [facility] Comment on above: Order Comment: 2 [...] Performed By: #### B LDCULT #### [facility] (DEFAULT) [address] [place] [address] Hematocrit Auto (Bld) [Volum e fraction][facility]: [facility] Hematocrit (Bld) [Volume fraction] 42.0 % 37-47 [facility] Hemoglobin measurementOrdere d By: Pieter Cathy on 08-02-2024 Hemoglobin (Bld) [Mass/Vol] 13.8 g/dL 12.0-15.0 [facility] Immature granulocytes/100 WB C Auto (Bld)Ordered By: [facility] 08-02-2024 Immature granulocytes/100 WBC (Bld) 0.300 % 0.0-0.9 [facility] Comment on above: IG% - Immature Granu locytes (promyelocytes, myelocytes and metamyelocytes) > 1% indicates that a LEFT SHIFT is Present. Influenza virus A and B and SARS-CoV-2 (COVID-19) and Respiratory syncytial virus RNAOrdered By: Shipshewana Cathy on 08-02-2024 SARS-CoV-2 (COVID-19) RNA CHUCKY+probe Ql (Unsp spec) [facility] International normalized rat io (INR) calculationOrdered By: [facility] on 08-02-2024 INR Coag (Bld) [Relative time] 1.1 {INR} [facility] L499.0042on 08-02-2024 Trop T High Sen Normal <=14 [facility] Comment on above: Result Comment: Canc elled via OM: Order cancelled - Patient discharged Performed By: #### L 499.0042 ####[facility] [address] [place], [address] L499.0043on 08-02-2024 Trop T High Sen Normal <=14 [facility] Comment on above: Result Comment: Canc elled via OM: Order cancelled - Patient discharged Performed By: #### L 499.0043 ####[facility] [address] [place], [address] L501.4021on 08-02-2024 Trop T High Sen 38 ng/L High <=14 [facility] Comment on above: Performed By: #### L 300.4310, L501.4021, L300.3900, L500.2500, L100.0100 ####[facility] [address] [place], [place], [address] LIPID PANEL WITH REFLEX TO M EASURED LDLon 08-02-2024 Cholesterol [Mass/Vol] 141 mg/dL NINF - 200 mg/dL [facility] Cholesterol in HDL [Mass/Vol] 38 mg/dL Low 40 - PINF mg/dL [facility] Cholesterol in LDL [Mass/Vol] 84 mg/dL 0 - 99 mg/dL [facility] Cholesterol non HDL [Mass/Vol] 103 mg/dL NINF - 130 mg/dL [facility] Cholesterol.total/Alta sterol in HDL [Mass ratio] 3.7 {ratio} NINF - 4.5 [facility] Triglyceride [Mass/Vol] 96 mg/dL NINF - 150 mg/dL [facility] Calculated LDL Cholesterol 84 mg/dL Normal 0-99 [facility] Comment on above: Result Comment: [<10 0 mg/dL: Optimal] [100-129 mg/dL: Near Optimal] [130-159 mg/dL: Borderline High] [160-189 mg/dL: High] [>189 mg/dL: Very High] Performed By: #### H [facility] [place] #### [facility] (DEFAULT) [address] [address] Cholesterol [Mass/Vol] 141 mg/dL Normal <200 [facility] Comment on above: Result Comment: [<20 0 mg/dL: Desirable] [200-239 mg/dL: Borderline High] [>239 mg/dL: High] Performed By: #### H EMO #### [facility] (DEFAULT) [address] [place] [address] Cholesterol in HDL [Mass/Vol] 38 mg/dL Low >=40 [facility] Comment on above: Result Comment: [<40 mg/dL: Low (High Risk)] [>59 mg/dL: High (Low Risk)] Performed By: #### H EMO #### [facility] (DEFAULT) [address] [place] [address] Non HDL Cholesterol 103 mg/dL Normal <130 [facility] Comment on above: Performed By: #### H EMO #### [facility] (DEFAULT) [address] [place] [address] Total Cholesterol/HDL Ratio 3.7 Normal <4.5 [facility] Comment on above: Performed By: #### H EMO #### [facility] (DEFAULT) [address] [place] [address] Triglyceride [Mass/Vol] 96 mg/dL Normal <150 [facility] Comment on above: Result Comment: [<15 0 mg/dL: Desirable] [150-199 mg/dL: Borderline] [200-499 mg/dL: High] [>500 mg/dL: Very High] Performed By: #### H EMO #### [facility] (DEFAULT) [address] [place] [address] Lymphocytes Auto (Unsp spec) [#/Vol]Ordered By: Pieter Morgan on 08-02-2024 Lymphocytes (Bld) [#/Vol] 1.56 10*3/uL 0.83-4.51 [facility] Lymphocytes/100 WBC Auto (Un sp spec)Ordered By: Pieter Morgan on 08-02-2024 Lymphocytes/100 WBC (Bld) 17.9 % Low 19-41 [facility] M100.678on 08-02-2024 M100.678 Pending SARS-CoV-2 (COVID 19) Negative INFLUENZA A Negative INFLUENZA B Negative RSV PCR Negative Normal [facility] Comment on above: Performed By: #### M 100.678 #### [facility] [address] [place], [address] MAGNESIUMon 08-02-2024 Magnesium [Mass/Vol] 1.2 mg/dL Low 1.6 - 2 .6 mg/dL [facility] Magnesium [Mass/Vol] 1.2 mg/dL Low 1.6-2.6 [facility] Comment on above: Performed By: #### H [facility] [place] #### [facility] (DEFAULT) [address] [place] [address] MCV (mean corpuscular volume ) determinationOrdered By: Pieter Morgan on 08-02-2024 MCV (RBC) [Entitic vol] 92.1 fL 81-99 [facility] Mean corpuscular hemoglobin (MCH) determinationOrdered By: Pieter Morgan on 08-02-2024 MCH (RBC) [Entitic mass] 30.3 pg 27.0-32.0 [facility] Mean corpuscular hemoglobin concentration (MCHC) determinationOrdered By: Pieter Morgan on 08-02-2024 MCHC (RBC) [Mass/Vol] 32.9 g/dL 32-36 [facility] Mean platelet volume determi nationOrdered By: Pieter Morgan on 08-02-2024 Platelet mean volume (Bld) [Entitic vol] 10.7 fL 6.2-12.0 [facility] Monocyte percentageOrdered B y: Pieter Morgan on 08-02-2024 Monocytes/100 WBC (Bld) 8.9 % 0-10 [facility] NT-PRO B-TYPE NATRIURETIC PE PTIDEon 08-02-2024 Natriuretic peptide B (Bld) [Mass/Vol] 1115 pg/mL High <=540 [facility] Comment on above: Performed By: #### H [facility] [place] #### [facility] (DEFAULT) [address] [place] [address] Neutrophil percentageOrdered By: Pieter Morgan on 08-02-2024 Neutrophils/100 WBC (Bld) 71.4 % High 47-70 [facility] No Panel Informationon 08-02 Radiology Study observation (narrative) [facility] Interpretation and review of laboratory results Abnormal [facility] No Panel InformationOrdered By: Pieter Morgan on 08-02-2024 Troponin T High Sensitivity 38 ng/L High <14 [facility] Nucleated red blood cell per centageOrdered By: Pieter Morgan on 08-02-2024 Nucleated RBC/100 WBC (Bld) [Ratio] 0 % 0-5 [facility] PT,INR,PTTon 08-02-2024 aPTT Coag (PPP) [Time] 26.9 s [facility] INR Coag (Bld) [Relative time] 1.1 {INR} 0.9 - 1.1 [facility] Interpretation and review of laboratory results Normal [facility] PT Coag (PPP) [Time] 13.9 s [facility] aPTT Coag (Bld) [Time] 26.9 s Normal 24.0-34.3 [facility] Comment on above: Performed By: #### P TPTT ####[facility] (DEFAULT)[address] [place] [address] INR Coag (PPP) [Relative time] 1.1 {INR} Normal 0.9-1.1 [facility] Comment on above: Performed By: #### P TPTT ####[facility] (DEFAULT)[address] [place] [address] PT Coag (PPP) [Time] 13.9 s Normal 11.9-14.2 [facility] Comment on above: Performed By: #### P TPTT ####[facility] (DEFAULT)[address] [place] [address] Partial Thromboplast Timeon 08-02-2024 aPTT Coag (Bld) [Time] 28.4 s Normal 24.1-36.2 [facility] Comment on above: Performed By: #### L 300.4310, L501.4021, L300.3900, L500.2500, L100.0100 #### [facility] [address] [place], [address] Platelet countOrdered By: Racheal Morgan on 08-02-2024 Platelets (Bld) [#/Vol] 214 10*3/uL 150-450 [facility] Potassium (Unsp spec) [Mass/ Vol]Ordered By: Pieter Morgan on 08-02-2024 Potassium [Moles/Vol] 4.2 mmol/L 3.3-5.1 [facility] Potassium measurement (mass/ volume)Ordered By: Pieter Morgan on 08-02-2024 Potassium (Unsp spec) [Mass/Vol] 4.2 mmol/L 3.3-5.1 [facility] Prothrombin Time w/INRon INR Coag (PPP) [Relative time] 1.1 {INR} Normal [facility] Comment on above: Performed By: #### L 300.4310, L501.4021, L300.3900, L500.2500, L100.0100 #### [facility] [address] [place], [address] PT Coag (PPP) [Time] 14.1 s Normal 11.7-14.9 [facility] Comment on above: Performed By: #### L 300.4310, L501.4021, L300.3900, L500.2500, L100.0100 #### [facility] [address] [place], [address] Prothrombin timeOrdered By: Pieter Morgan on 08-02-2024 PT Coag (PPP) [Time] 14.1 s 11.7-14.9 [facility] RBC Auto (Bld) [#/Vol]Ordere d By: Pieter Morgan on 08-02-2024 RBC (Bld) [#/Vol] 4.56 10*6/uL 4.2-5.4 [facility] SCREEN: MRSA/MSSAon 08-03-19 25 Methicillin Resistant S. Aureus By Pcr Negative Normal Negative [facility] Comment on above: Order Comment: Colle [...] by the Clinical Microbiology Laboratory at [facility]. It has not been cleared or approved by the FDA.The laboratory is regulated under CLIA as qualified to perform high-complexity testing. This test is used for clinical purposes. It should not be regarded as investigational or for research. Performed By: #### T YPEC #### [facility] (DEFAULT) [address] [address] Staphylococcus Aureus By Pcr Negative Normal Negative [facility] Comment on above: Order Comment: Colle [...] by the Clinical Microbiology Laboratory at [facility]. It has not been cleared or approved by the FDA.The laboratory is regulated under CLIA as qualified to perform high-complexity testing. This test is used for clinical purposes. It should not be regarded as investigational or for research. Performed By: #### T YPEC #### [facility] (DEFAULT) [address] [address] STROKE Brain/Head without Co nton 08-02-2024 STROKE Brain/Head without Cont [facility] Services [address] [place] [address] STROKE Brain/Head without Cont MR#: [id number] Acct: [id number] Name: LINDSAY ACUNA Rep #: [id number] : 1945 F 78 From: Kameron Cardoso MD PCP: Dr. Kameron Caruso MD Status: REG ER Study: STROKE Brain/Head without Cont Date of Exam: 0 08/02/24 Exam# [id number] Ordering Dr: Pieter Morgan MD EXAM: CT [...] on 08/02/2024 at 1250 hours. Reading Location: [facility] CC: Dr. Pieter Morgan MD; Dr. Kameron Caruso MD Tip Stretcher: Signed Normal [facility] STROKE CTA Head AND Neck W/C onon 08-02-2024 STROKE CTA Head AND Neck W/Con [facility] Imaging Services [address] [place] [address] STROKE CTA Head AND Neck W/Con MR#: [id number] Acct: [id number] Name: LINDSAY ACUNA Rep #: [id number] : 1945 F 78 From: August ibrahim MD PCP: Dr. Kameron Caruso MD Status: REG ER Study: STROKE CTA Head AND Neck W/Con Date of Exam: 0 08/02/24 Exam# [id number] Ordering Dr: Pieter Morgan MD PROCEDURE: STROKE [...] impression: No significant stenosis seen. Reading Location: [place] [address] CC: Dr. Pieter Morgan MD; Dr. Kameron Caruso MD Tip Stretcher: Signed Normal [facility] Serum creatinine measurement (mass/volume)Ordered By: Pieter Morgan on 08-02-2024 Creatinine [Mass/Vol] 1.74 mg/dL High 0.70-1.20 [facility] Serum glucose measurement (m ass/volume)Ordered By: Pieter Morgan on 08-02-2024 Glucose [Mass/Vol] 235 mg/dL High 70-99 [facility] Serum or plasma calcium dayna urement (mass/volume)Ordered By: Pieter Morgan on 08-02-2024 Calcium [Mass/Vol] 9.0 mg/dL 7.6-11.0 [facility] Serum or plasma urea nitroge n measurement (mass/volume)Ordered By: Pieter Morgan on 08-02-2024 Urea nitrogen [Mass/Vol] 20 mg/dL High 4-19 [facility] Sodium levelOrdered By: Evert Morgan on 08-02-2024 Sodium [Moles/Vol] 132 mmol/L Low 133-145 [facility] TSH W/FT4 REFLEXon Interpretation and review of laboratory results Normal [facility] TSH Qn 1.662 m[IU]/L [facility] TSH 1.662 uIU/mL Normal 0.550-4.780 [facility] Comment on above: Performed By: #### X M #### [facility] (DEFAULT) [address] [place] [address] TYPE AND SCREENon 08-02-2024 ABO/RH(D) TYPE Negative [facility] Specimen Expiration 08/05/2024 23:59 [facility] ABO/RH(D) TYPE Negative Normal [facility] Comment on above: Performed By: #### X M #### [facility] (DEFAULT) [address] [place] [address] Specimen Expiration 08/05/2024 23:59 Normal [facility] Comment on above: Performed By: #### X M #### [facility] (DEFAULT) [address] [address] URINALYSIS REFLEX TO CULTURE PERFORMABLEOrdered By: Namita De La Cruz on 08-02-2024 Appearance (U) Clear Clear [facility] Bacteria LM Ql (Urine sed) PRESENT Abnormal ABSENT [facility] Color (U) Yellow Yellow [facility] Epithelial cells.squamous LM Ql (Urine sed) 0-2/hpf 0-2/hpf, 3-5/hpf = 1+ [facility] Glucose Test strip (U) [Mass/Vol] 500 mg/dL Abnormal Negative [facility] Interpretation and review of laboratory results Abnormal [facility] Ketones (U) [Mass/Vol] Negative Negative [facility] Leukocyte esterase Test strip Ql (U) Moderate Abnormal Negative [facility] Nitrite Ql (U) Negative Negative [facility] pH (U) 6.5 [pH] 5.0 - 7.0 [facility] Protein (U) [Mass/Vol] Negative Negative [facility] RBC (U) [#/Vol] Small Abnormal [facility] RBC LM.HPF (Urine sed) [#/Area] 3-5 Abnormal [facility] Specific gravity (U) [Rel density] 1.022 1.001 - 1.035 [facility] Urobilinogen (U) [Mass/Vol] 0.2 E.U./dL 0.2 E.U/dL, 1.0 E.U/dL [facility] WBC LM.HPF (Urine sed) [#/Area] /[HPF] Abnormal [facility] URINALYSIS REFLEX TO CULTURE PERFORMABLEon 08-02-2024 Appearance (U) Clear Normal Clear [facility] Comment on above: Order Comment: For i ndwelling catheters, specimen collection is acceptable on catheter day 1 and 2 only. ? Performed By: #### U [id number] #### [facility] (DEFAULT) [address] [place] [address] Bacteria PRESENT Abnormal ABSENT [facility] Comment on above: Order Comment: For i ndwelling catheters, specimen collection is acceptable on catheter day 1 and 2 only. ? Performed By: #### U [id number] #### [facility] (DEFAULT) [address] [place] [address] Blood Urine Small Abnormal Negative [facility] Comment on above: Order Comment: For i ndwelling catheters, specimen collection is acceptable on catheter day 1 and 2 only. ? Performed By: #### U [id number] #### [facility] (DEFAULT) [address] [place] [address] Color (U) Yellow Normal Yellow [facility] Comment on above: Order Comment: For i ndwelling catheters, specimen collection is acceptable on catheter day 1 and 2 only. ? Performed By: #### U [id number] #### [facility] (DEFAULT) [address] [place] [address] Glucose Ql (U) 500 mg/dL Abnormal Negative [facility] Comment on above: Order Comment: For i ndwelling catheters, specimen collection is acceptable on catheter day 1 and 2 only. ? Performed By: #### U [id number] #### [facility] (DEFAULT) [address] [place] [address] Ketones Ql (U) Negative Normal Negative [facility] Comment on above: Order Comment: For i ndwelling catheters, specimen collection is acceptable on catheter day 1 and 2 only. ? Performed By: #### U [id number] #### [facility] (DEFAULT) [address] [place] [address] Leukocyte esterase Test strip Ql (U) Moderate Abnormal Negative [facility] Comment on above: Order Comment: For i ndwelling catheters, specimen collection is acceptable on catheter day 1 and 2 only. ? Performed By: #### U [id number] #### [facility] (DEFAULT) [address] [place] [address] Nitrites Urine Negative Normal Negative [facility] Comment on above: Order Comment: For i ndwelling catheters, specimen collection is acceptable on catheter day 1 and 2 only. ? Performed By: #### U [id number] #### [facility] (DEFAULT) [address] [address] pH (U) 6.5 [pH] Normal 5.0-7.0 [facility] Comment on above: Order Comment: For i ndwelling catheters, specimen collection is acceptable on catheter day 1 and 2 only. ? Performed By: #### U [id number] #### [facility] (DEFAULT) [address] [address] Protein Urine Negative Normal Negative [facility] Comment on above: Order Comment: For i ndwelling catheters, specimen collection is acceptable on catheter day 1 and 2 only. ? Performed By: #### U [id number] #### [facility] (DEFAULT) [address] [address] RBC Urine 3-5 Abnormal 0-2 [facility] Comment on above: Order Comment: For i ndwelling catheters, specimen collection is acceptable on catheter day 1 and 2 only. ? Performed By: #### U [id number] #### [facility] (DEFAULT) [address] [address] Specific [place] Urine 1.022 Normal 1.001-1.035 [facility] Comment on above: Order Comment: For i ndwelling catheters, specimen collection is acceptable on catheter day 1 and 2 only. ? Performed By: #### U [id number] #### [facility] (DEFAULT) [address] [address] Squamous/Epithelial Cells, Urine 0-2/hpf Normal 0-2/hpf, 3-5/hpf = 1+ [facility] Comment on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 patients with HgbA1c in the range 5.7-6.4% are at increased risk for development of diabetes, and intervention by lifestyle modification may be beneficial. HgbA1c greater or equal to 6.5% is considered diagnostic of diabetes. Performed By: #### 5 5454-3 ####[facility] LABIA [id number] [place] [address] [place] Lipid 1996 panelon 4 Cholesterol [Mass/Vol] 156 mg/dL Normal <200 [facility] Comment on above: Order Comment: Speci men Type: BLOOD SPECIMENOrdering Facility: [facility] Address: [address] [place] [address] Result Comment: <200 mg/dL, Desirable 200-239 mg/dL, Borderline high >239 mg/dL, High Performed By: #### 3 016-3, 57711-9, 78919-8 ####[facility] LABIA [id number] [place] [address] [place] Cholesterol in HDL [Mass/Vol] 41 mg/dL Normal >39 [facility] Comment on above: Order Comment: Speci men Type: BLOOD SPECIMENOrdering Facility: [facility] Address: [address] [place] [address] Result Comment: 40-5 9 mg/dL, Acceptable >59 mg/dL, High: Negative risk factor for coronary heart disease <40 mg/dL, Low: Positive risk factor for coronary heart disease Performed By: #### 3 016-3, 53992-6, ####[facility] LABCLIA [id number] [place] [address] [place] Cholesterol in LDL [Mass/Vol] 85 mg/dL Normal <100 [facility] Comment on above: Order Comment: Speci men Type: BLOOD SPECIMENOrdering Facility: [facility] Address: [address] [place] [address] Result Comment: <100 mg/dL, Optimal 100-129 mg/dL, Near optimal/above optimal 130-159 mg/dL, Borderline high 160-189 mg/dL, High >189 mg/dL, Very high Secondary prevention optimal LDL Cholesterol levels are recommended to be < 70 mg/dL Performed By: #### 3 016-3, , ####[facility] LABCLIA [id number] [place] [address] [place] Cholesterol in LDL/Cholesterol in HDL [Mass ratio] 2.07 {ratio} Normal <2.54 [facility] Comment on above: Order Comment: Speci men Type: BLOOD SPECIMENOrdering Facility: [facility] Address: [address] [place] [address] Result Comment: Refe maría: 1. National Cholesterol Education Program ATP III Guideline At-A-Glance Quick Desk Reference: National Heart, Lung, and Blood [place]. National Institutes of Health. 2001: NIH Publication No. 01-3305. 2. An International Atherosclerosis Society position paper: global recommendations for the management of dyslipidemia: executive summary, Atherosclerosis. 2014: 232(2):410-413. Performed By: #### 3 016-3, 73286-5, ####[facility] LABCLIA [id number] [place] [address] [place] Cholesterol in VLDL [Mass/Vol] 30 mg/dL High <30 [facility] Comment on above: Order Comment: Speci men Type: BLOOD SPECIMENOrdering Facility: [facility] Address: [address] [place] [address] Performed By: #### 3 016-3, , ####[facility] LABCLIA [id number] [address] [address] [place] Cholesterol non HDL [Mass/Vol] 115 mg/dL Normal <130 [facility] Comment on above: Order Comment: Speci men Type: BLOOD SPECIMENOrdering Facility: [facility] Address: [address] [place] [address] Result Comment: <130 mg/dL, Optimal 130-159 mg/dL, Near optimal/above optimal 160-189 mg/dL, Borderline high 190-219 mg/dL, High >219 mg/dL, Very high Secondary prevention optimal non HDL Cholesterol levels are recommended to be <100 mg/dL Performed By: #### 3 016-3, , ####[facility] LABCLIA [id number] [place] [address] [place] Cholesterol.total/Alta sterol in HDL [Mass ratio] 3.80 {ratio} Normal <5.10 [facility] Comment on above: Order Comment: Speci men Type: BLOOD SPECIMENOrdering Facility: [facility] Address: [address] [place] [address] Performed By: #### 3 016-3, , ####[facility] LABCLIA [id number] [address] [address] [place] FASTING TIME 12 hrs Normal [facility] Comment on above: Order Comment: Speci men Type: BLOOD SPECIMENOrdering Facility: [facility] Address: [address] [place] [address] Performed By: #### 3 016-3, , ####[facility] LABCLIA [id number] [place] [id number] [place] Triglyceride [Mass/Vol] 148 mg/dL Normal <150 C [facility] Comment on above: Order Comment: Speci men Type: BLOOD SPECIMENOrdering Facility: [facility] Address: [address] [place] [address] Result Comment: <150 mg/dL, Normal 150-199 mg/dL, Borderline high 200-499 mg/dL, High >499 mg/dL, Very high Performed By: #### 3 016-3, 87008-5, 24335-9 ####[facility] LABCLIA [id number] [place] [address] [place] TSH SerPl-aCncon 11-27-2023 TSH Qn 1.870 m[IU]/L Normal 0.270-4.200 [facility] Comment on above: Order Comment: Speci men Type: BLOOD SPECIMENOrdering Facility: [facility] Address: [address] [place] [address] Performed By: #### 3 016-3, 40733-2, 35085-5 ####[facility] LABCLIA [id number] [address] [place] CNOVon 10-10-2023 CNOV Office Visit (UCTR ) LINDSAY ACUNA ([id number]) 1945 F Date Time Provider Department 10/10/23 7:30 AM DAVID DUPREE [facility] During your visit today, we recorded the following information about you: Temperature Pulse Respiration Blood pressure 97.5 degrees 58/minute 18/minute 128/82 Weight 82.1 kg David Dupree APRN.SPEECH THERAPIST 10/10/2023 8:11 AM Signed Subjective HPI Nontoxic-appearing [...] mouth daily before breakfast. blood sugar diagnostic ([employer] ULTRA TEST) test strip Test Blood Sugar [...] CNOV Office Visit (UCWSTR ) LINDSAY ACUNA ([id number]) 1945 F Date Time Provider Department 09/29/23 2:15 PM RADHA LEVINE [facility] During your visit today, we recorded the following information about you: Temperature Pulse Respiration Blood pressure 97.8 degrees 54/minute 18/minute 148/91 Weight 84 kg Radha Levine APRN.SPEECH THERAPIST 09/29/2023 6:12 PM Signed This note was created using Quippiriter. Subjective Lindsay Acuna is a 77 year old female. 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 Denies fever or chills Denies malaise or fatigue Denies new lotions, soaps, or medicines States that she was working out in the garden the same day the rash erupted. The history is provided by the patient. No wire mesh knitter was used. Rash This is a new [...] 1 tablet by mouth once daily. lancets (i2i LogicTOUCH DELICA PLUS LANCET) 30 gauge Test blood [...] 04-16-2019 Glucose [Mass/Vol] 161 mg/dL High 70-100 [facility] StatusPage [facility] Comment on above: Result Comment: Test performed by glucose meter. Results may be 10%-15% lower than serum/plasma values. (CLIA ID [id number]) Performed By: #### B GLU #### [address] [address] Surgical Pathologyon 019 Surgical Pathology [id number] [facility] DEPARTMENT OF [facility] PATHOLOGY AND LABORATORY MEDICINE [address] [place] [address] [id number] FINAL SURGICAL PATHOLOGY REPORT ___ NAME: LINDSAY ACUNA : 1945 73 Y F BILLING NO.: [id number] LOCATION: 1XEO PROCEDURE 01/09/2019 DATE: SURGEON: SANTIAGO [...] characteristics determined by the clinical laboratories of [facility] StatusPage [facility]. They have not been cleared by [...] negativity on decalcified specimens. Professional Performing Location: [address] [address]. DEPARTMENT OF PATHOLOGY AND LABORATORY MEDICINE [place], [place] [address] Normal [facility] .Auto Diffon 08-22-2018 Ammonia mass conc (P) 1.10 10 3/mcL High 0.15-1.00 [facility] ([place]) Comment on above: Performed By: #### B MP, GFR #### [address] [address] Basophils #/vol (Bld) 0.00 10 3/mcL Normal 0.00-0.19 [facility] ([place]) Comment on above: Performed By: #### Roby MP, GFR #### [address] [address] Basophils/100 WBC (Bld) 0.3 % Normal 0.0-2.5 A [facility] ([place]) Comment on above: Performed By: #### B MP, GFR #### [address] [address] Eosinophils #/vol (Bld) 0.00 10 3/mcL Normal 0.00-0.40 [facility] ([place]) Comment on above: Performed By: #### B MP, GFR #### [address] [address] Eosinophils/100 WBC (Bld) 0.2 % Normal 0.0-7.0 [facility] ([place]) Comment on above: Performed By: #### B MP, GFR #### [address] [address] Lymphocytes #/vol (Bld) 2.20 10 3/mcL Normal 0.77-3.85 [facility] ([place]) Comment on above: Performed By: #### B MP, GFR #### [address] [address] Lymphocytes/100 WBC (Bld) 20.5 % Normal 10.0-50.0 [facility] ([place]) Comment on above: Performed By: #### B MP, GFR #### [address] [address] Monocytes/100 WBC (Bld) 10.5 % Normal 1.7-13.0 A [facility] ([place]) Comment on above: Performed By: #### B MP, GFR #### [address] [address] Neutrophils/100 WBC (Bld) 68.5 % Normal 37.0-80.0 [facility] ([place]) Comment on above: Performed By: #### B MP, GFR #### [address] [address] .GFRon 08-22-2018 GFR Non- 33 ml/min/1.73sqm Normal [facility] ([place]) Comment on above: Result Comment: GFR [...] Performed By: #### B MP, GFR #### [address] [address] #### JOHN, ADIFF, ANEU #### [address] [address] GFR 40 ml/min/1.73sqm Normal [facility] ([place]) Comment on above: Result Comment: GFR [...] Performed By: #### B MP, GFR #### [place] [address] #### CBC, ADIFF, ANEU #### [address] [address] .NEUABSon 08-22-2018 Neutrophils #/vol (Bld) 7.40 10 3/mcL High 2.85-6.16 [facility] ([place]) Comment on above: Performed By: #### B MP, GFR #### [place] [address] BMPon 08-22-2018 Calcium mass conc 8.3 mg/dL Low 8.4-10.2 [facility] ([place]) Comment on above: Performed By: #### Roby MP, GFR #### [place] [address] #### CBC, ADIFF, ANEU #### [address] [address] Chloride molar conc 104 mmol/L Normal 98-107 [facility] ([place]) Comment on above: Performed By: #### Roby MP, GFR #### [place] [address] #### CBC, ADIFF, ANEU #### [address] [address] CO2 molar conc 25 mmol/L Normal 23-31 [facility] ([place]) Comment on above: Performed By: #### B MP, GFR #### [place] [address] #### CBC, ADIFF, ANEU #### [address] [address] Creatinine mass conc 1.53 mg/dL High 0.55-1.02 [facility] ([place]) Comment on above: Performed By: #### B MP, GFR #### [place] [address] #### CBC, ADIFF, ANEU #### [address] [address] Electrolyte Balance 10.0 mEq/L Normal [facility] ([place]) Comment on above: Performed By: #### B MP, GFR #### [place] [address] #### CBC, ADIFF, ANEU #### [address] [address] Glucose mass conc 149 mg/dL High 83-110 [facility] ([place]) Comment on above: Performed By: #### B MP, GFR #### [place] [address] #### CBC, ADIFF, ANEU #### [address] [address] Potassium molar conc 4.3 mmol/L Normal 3.5-5.1 [facility] ([place]) Comment on above: Performed By: #### B MP, GFR #### [place] [address] #### CBC, ADIFF, ANEU #### [address] [address] Sodium molar conc 139 mmol/L Normal 136-145 [facility] ([place]) Comment on above: Performed By: #### B MP, GFR #### [place] [address] #### CBC, ADIFF, ANEU #### [address] [address] Urea nitrogen mass conc 32 mg/dL High 7-18 A [facility] ([place]) Comment on above: Performed By: #### B MP, GFR #### [place] [address] #### CBC, ADIFF, ANEU #### [address] [address] Urea nitrogen/Creatinine mass ratio 21 ratio Normal 7-27 [facility] ([place]) Comment on above: Performed By: #### B MP, GFR #### [address] [address] #### CBC, ADIFF, ANEU #### [facility] [address] [place], [place] [address] CBCon 08-22-2018 Erythrocyte distribution width Ratio (RBC) 12.6 % Normal 11.5-14.5 [facility] ([place]) Comment on above: Performed By: #### B MP, GFR #### [place] [address] Hematocrit Volume Fraction (Bld) 27.5 % Low 37.0-47.0 [facility] ([place]) Comment on above: Performed By: #### B MP, GFR #### [place] [address] Hemoglobin mass conc (Bld) 9.2 G/dL Low 12.0-16.0 [facility] ([place]) Comment on above: Performed By: #### B MP, GFR #### [place] [address] MCH Entitic mass (RBC) 30.1 pg Normal 27.0-31.2 [facility] ([place]) Comment on above: Performed By: #### B MP, GFR #### [place] [address] MCHC mass conc (RBC) 33.5 G/dL Normal 33.0-37.0 [facility] ([place]) Comment on above: Performed By: #### B MP, GFR #### [address] [address] MCV Entitic volume (RBC) 89.8 fL Normal 80.0-94.0 [facility] ([place]) Comment on above: Performed By: #### B MP, GFR #### [address] [address] Platelet mean volume Entitic volume (Bld) 9.3 fL Normal 7.4-10.4 [facility] ([place]) Comment on above: Performed By: #### B MP, GFR #### [facility] [address] [place] [address] Platelets #/vol (Bld) 224 10 3/mcL Normal 130-400 A [facility] ([place]) Comment on above: Performed By: #### B MP, GFR #### [facility] [address] [place] [address] RBC #/vol (Bld) 3.06 10 6/mcL Low 4.20-5.40 [facility] ([place]) Comment on above: Performed By: #### B MP, GFR #### [facility] [address] [place] [address] WBC #/vol (Bld) 10.80 10 3/mcL Normal 4.60-10.80 [facility] ([place]) Comment on above: Performed By: #### B MP, GFR #### [place] [address] XR KNEE 1 OR 2 VIEWS RIGHTon [...] AM Sign Date: 08/21/2018 9:55:37 AM Normal [facility] ([place]) CT KNEE W/O CONTRAST RIGHTon 08-09-2018 CT [...] PM Sign Date: 08/09/2018 5:04:12 PM Normal [facility] ([place]) .Auto Diffon 08-06-2018 Ammonia mass conc (P) 0.80 10 3/mcL Normal 0.15-1.00 [facility] ([place]) Comment on above: Performed By: #### C DORY SMITH, ANEU #### [place] [address] #### A1C #### [address] [address] Basophils #/vol (Bld) 0.10 10 3/mcL Normal 0.00-0.19 [facility] ([place]) Comment on above: Performed By: #### C DORY SMITH, ANEU #### [place] [address] #### A1C #### [address] [address] Basophils/100 WBC (Bld) 0.6 % Normal 0.0-2.5 A [facility] ([place]) Comment on above: Performed By: #### C BC ADIFF, ANEU #### [place] [address] #### A1C #### [address] [address] Eosinophils #/vol (Bld) 0.20 10 3/mcL Normal 0.00-0.40 [facility] ([place]) Comment on above: Performed By: #### C BC ADIFF, ANEU #### [place] [address] #### A1C #### [address] [address] Eosinophils/100 WBC (Bld) 1.7 % Normal 0.0-7.0 [facility] ([place]) Comment on above: Performed By: #### C BC, ADIFF, ANEU #### [address] [address] #### A1C #### [address] [address] Lymphocytes #/vol (Bld) 1.90 10 3/mcL Normal 0.77-3.85 [facility] ([place]) Comment on above: Performed By: #### C BC, ADIFF, ANEU #### [address] [address] #### A1C #### [address] [address] Lymphocytes/100 WBC (Bld) 20.8 % Normal 10.0-50.0 [facility] ([place] Comment on above: Performed By: #### C BC, ADIFF, ANEU #### [address] [address] #### A1C #### [address] [address] Monocytes/100 WBC (Bld) 9.3 % Normal 1.7-13.0 A [facility] ([place]) Comment on above: Performed By: #### C BC ADIFF, ANEU #### [address] [address] #### A1C #### [address] [address] Neutrophils/100 WBC (Bld) 67.6 % Normal 37.0-80.0 [facility] ([place]) Comment on above: Performed By: #### C BC, ADIFF, ANEU #### [address] [address] #### A1C #### [address] [address] .GFRon 08-06-2018 GFR 51 ml/min/1.73sqm Normal [facility] ([place]) Comment on above: Result Comment: GFR [...] Performed By: #### B MP, GFR #### [address] [address] GFR Non- 42 ml/min/1.73sqm Normal [facility] ([place]) Comment on above: Result Comment: GFR Population [...] Performed By: #### B MP, GFR #### [address] [address] .NEUABSon 08-06-2018 Neutrophils #/vol (Bld) 6.20 10 3/mcL High 2.85-6.16 [facility] ([place]) Comment on above: Performed By: #### C BC, ADIFF, ANEU #### [place] [address] [address] #### A1C #### [address] [address] A1Con 08-06-2018 Hemoglobin A1c/Hemoglobin.total mass fraction (Bld) 7.9 % High 4.5-6.2 [facility] ([place]) Comment on above: Performed By: #### C BCDORY, ANEU #### [place] [address] [place], [place] [address] #### A1C #### [address] [address] BMPon 08-06-2018 Calcium mass conc 9.2 mg/dL Normal 8.4-10.2 [facility] ([place]) Comment on above: Performed By: #### B MP, GFR #### [place] [address] Chloride molar conc 105 mmol/L Normal 98-107 [facility] ([place]) Comment on above: Performed By: #### B MP, GFR #### [place] [address] CO2 molar conc 27 mmol/L Normal 23-31 [facility] ([place]) Comment on above: Performed By: #### B MP, GFR #### [place] [address] Creatinine mass conc 1.25 mg/dL High 0.55-1.02 [facility] ([place]) Comment on above: Performed By: #### B MP, GFR #### [place] [address] Electrolyte Balance 11.0 mEq/L Normal [facility] ([place]) Comment on above: Performed By: #### B MP, GFR #### [place] [address] Glucose mass conc 70 mg/dL Low 83-110 [facility] ([place]) Comment on above: Performed By: #### B MP, GFR #### [place] [address] Potassium molar conc 5.0 mmol/L Normal 3.5-5.1 [facility] ([place]) Comment on above: Performed By: #### B MP, GFR #### [place] [address] Sodium molar conc 143 mmol/L Normal 136-145 [facility] ([place]) Comment on above: Performed By: #### B MP, GFR #### [place] [address] Urea nitrogen mass conc 26 mg/dL High 7-18 A [facility] ([place]) Comment on above: Performed By: #### B MP, GFR #### [place] [address] Urea nitrogen/Creatinine mass ratio 21 ratio Normal 7-27 [facility] ([place]) Comment on above: Performed By: #### B MP, GFR #### [address] [address] CBCon 08-06-2018 Erythrocyte distribution width Ratio (RBC) 12.2 % Normal 11.5-14.5 [facility] ([place]) Comment on above: Performed By: #### C DORY SMITH, ANEU #### [place] [address] #### A1C #### [place] [address] Hematocrit Volume Fraction (Bld) 34.6 % Low 37.0-47.0 [facility] ([place] Comment on above: Performed By: #### DORY SOTO, ANEU #### [place] [address] #### A1C #### [place] [address] Hemoglobin mass conc (Bld) 11.7 G/dL Low 12.0-16.0 [facility] ([place]) Comment on above: Performed By: #### C BCDORY, ANEU #### [place] [address] #### A1C #### [place] [address] MCH Entitic mass (RBC) 30.6 pg Normal 27.0-31.2 [facility] ([place]) Comment on above: Performed By: #### C BCDORY, ANEU #### [place] [address] #### A1C #### [address] [address] MCHC mass conc (RBC) 33.7 G/dL Normal 33.0-37.0 [facility] ([place] Comment on above: Performed By: #### C BC ADIFF, ANEU #### [address] [address] #### A1C #### [address] [address] MCV Entitic volume (RBC) 90.9 fL Normal 80.0-94.0 [facility] ([place]) Comment on above: Performed By: #### C DORY SMITH, ANEU #### [place] [address] #### A1C #### [place] [address] Platelet mean volume Entitic volume (Bld) 8.8 fL Normal 7.4-10.4 [facility] ([place]) Comment on above: Performed By: #### C DORY SMITH, ANEU #### [address] [address] #### A1C #### [address] [address] Platelets #/vol (Bld) 355 10 3/mcL Normal 130-400 A [facility] ([place]) Comment on above: Performed By: #### C DORY SMITH, ANEU #### [place] [address] #### A1C #### [address] [address] RBC #/vol (Bld) 3.81 10 6/mcL Low 4.20-5.40 [facility] ([place]) Comment on above: Performed By: #### C BC ADIFF, ANEU #### [address] [address] #### A1C #### [address] [address] WBC #/vol (Bld) 9.20 10 3/mcL Normal 4.60-10.80 [facility] ([place]) Comment on above: Performed By: #### C DORY SMITH ANEU #### [place] [address] [place], [place] [address] #### A1C #### [facility] [address] [place] [address] Vital Signs Date Time Vital Sign Value Performing Clinician Facility 10-02-2024 09:21-0400 Body height 167.[address] Kameron Caruso MD Work Phone: [facility] 10-02-2024 09:21-0400 Diastolic blood pressure 71 mm[Hg] Dr. Kameron Caruso MD Work Phone: [facility] 10-02-2024 09:21-0400 Heart rate 77 /min Dr. Kameron Caruso MD Work Phone: [facility] 10-02-2024 09:21-0400 Respiratory rate 16 /min Dr. Kameron Caruso MD Work Phone: [facility] 10-02-2024 09:21-0400 Systolic blood pressure 111 mm[Hg] Dr. Kameron Caruso MD Work Phone: [facility] 09-09-2024 09:02-0400 Heart rate 100 /min SILVINO DIORLE DO [facility] 09-09-2024 07:58-0400 Blood Pressure Cuff Size SILVINO SCHEATZLE DO [facility] 09-09-2024 07:58-0400 Blood Pressure Location SILVINO SCHEATZLE DO [facility] 09-09-2024 07:58-0400 Blood Pressure Method SILVINO SCHEATZLE DO [facility] 09-09-2024 07:58-0400 Body temperature 96.8 [degF] SILVINO SCHEATZLE DO [facility] 09-09-2024 07:58-0400 Diastolic Blood Pressure Non-Invasive 78 mm[Hg] SILVINO CIDATZLE DO [facility] [place] 09-09-2024 07:58-0400 Heart rate 110 /min SILVINO CIDATZLE DO [facility] [place] 09-09-2024 07:58-0400 Reason For Taking VItal Signs SILVINO SCHEATZLE DO [facility] [place] 09-09-2024 07:58-0400 Respiratory rate 16 /min SILVINO CIDATZLE DO [facility] [place] 09-09-2024 07:58-0400 Systolic Blood Pressure Non-Invasive 122 mm[Hg] SILVINO SCHEATZLE DO [facility] [place] 09-09-2024 02:45-0400 Body temperature 97.7 [degF] SILVINO CIDATZLE DO [facility] [place] 09-09-2024 02:45-0400 Diastolic Blood Pressure Non-Invasive 60 mm[Hg] SILVINO CIDATZLE DO [facility] [place] 09-09-2024 02:45-0400 Heart rate 92 /min SILVINO CIDATZLE DO [facility] [place] 09-09-2024 02:45-0400 Respiratory rate 16 /min SILVINO CIDATZLE DO [facility] [place] 09-09-2024 02:45-0400 Systolic Blood Pressure Non-Invasive 108 mm[Hg] SILVINO SCHEATZLE DO [facility] 09-08-2024 22:28-0400 Blood Pressure Cuff Size SILVINO CIDATZLE DO [facility] [place] 09-08-2024 22:28-0400 Blood Pressure Location SILVINO CIDATZLE DO [facility] 09-08-2024 22:28-0400 Blood Pressure Method SILVINO CIDATZLE DO [facility] [place] 09-08-2024 22:28-0400 Body temperature 97.88 [degF] SILVINO CIDATZLE DO [facility] [place] 09-08-2024 22:28-0400 Diastolic Blood Pressure Non-Invasive 54 mm[Hg] SILVINO CIDATZLE DO [facility] [place] 09-08-2024 22:28-0400 Heart rate 92 /min SILVINO CIDATZLE DO [facility] 09-08-2024 22:28-0400 Reason For Taking VItal Signs SILVINO CIDATZLE DO [facility] 09-08-2024 22:28-0400 Respiratory rate 16 /min SILVINO CIDATZLE DO [facility] [place] 09-08-2024 22:28-0400 Systolic Blood Pressure Non-Invasive 118 mm[Hg] SILVINO CIDATZLE DO [facility] 09-08-2024 18:21-0400 Heart rate 90 /min SILVINO CIDATZLE DO [facility] 09-08-2024 09:08-0400 Blood Pressure Cuff Size SILVINO CIDATZLE DO [facility] 09-08-2024 09:08-0400 Blood Pressure Location SILVINO CIDATZLE DO [facility] 09-08-2024 09:08-0400 Blood Pressure Method SILVINO SCHEATZLE DO [facility] 09-08-2024 09:08-0400 Heart rate 114 /min SILVINO CIDATZLE DO [facility] 09-08-2024 09:08-0400 Reason For Taking VItal Signs SILVINO SCHEATZLE DO [facility] 09-04-2024 10:54-0400 Body temperature 96.62 [degF] SILVINO CIDATZLE DO [facility] [place] 09-03-2024 00:26-0400 Body temperature 97.34 [degF] SILVINO CIDATZLE DO [facility] [place] 08-30-2024 22:54-0400 Body temperature 98.06 [degF] SILVINO CIDATZLE DO [facility] [place] 08-26-2024 10:36-0400 Body weight 76 kg SILVINO RADERLE DO [facility] 08-19-2024 06:00-0400 Body weight 75.3 kg SILVINO RADERLE DO [facility] [place] 08-15-2024 14:27-0400 Body height 170.2 cm SILVINO HA DO [facility] [place] 08-15-2024 14:27-0400 Body weight 75.4 kg SILVINO RADERLE DO [facility] [place] 08-15-2024 14:27-0400 Body weight 26.03 kg/m2 SILVINO RADERLE DO [place] 08-15-2024 09:02-0400 Diastolic blood pressure 69 mm[Hg] Prema Ramos MD Work Phone: [facility] 08-15-2024 09:02-0400 Systolic blood pressure 128 mm[Hg] Prema Ramos MD Work Phone: [facility] 08-15-2024 07:28-0400 Heart rate 86 /min Prema Ramos MD Work Phone: [facility] 08-15-2024 07:18-0400 Body temperature 97.3 [degF] Prema Ramos MD Work Phone: 8(670)077-294310 [address] 08-15-2024 07:18-0400 Respiratory rate 23 /min Prema Ramos MD Work Phone: 2(755)611-465310 [address] 08-15-2024 07:18-0400 SaO2% (BldA) [Mass fraction] 95 % Prema Ramos MD Work Phone: 6(777)840-364672 [place] [address] 08-05-2024 08:00-0400 Body height 170.2 cm Prema Ramos MD Work Phone: 2(261)542-345272 [place] [address] 08-05-2024 08:00-0400 Body mass index (BMI) [Ratio] 26.94 kg/m2 Prema Ramos MD Work Phone: 4(962)[phone] [place] [address] 08-05-2024 08:00-0400 Body weight 78.02 kg Prema Ramos MD Work Phone: 9(883)[phone] [place] [address] 08-02-2024 13:52-0400 Body temperature 98 [degF] Dr. Kameron Caruso MD Work Phone: [facility] 08-02-2024 13:52-0400 Diastolic blood pressure 91 mm[Hg] Dr. Kameron Caruso MD Work Phone: [facility] 08-02-2024 13:52-0400 Heart rate 109 /min Dr. Kameron Caruso MD Work Phone: [facility] 08-02-2024 13:52-0400 Respiratory rate 16 /min Dr. Kameron Caruso MD Work Phone: [facility] 08-02-2024 13:52-0400 SaO2% (BldA) [Mass fraction] 98 % Dr. Kameron Caruso MD Work Phone: [facility] 08-02-2024 13:52-0400 Systolic blood pressure 153 mm[Hg] Dr. Kameron Caruso MD Work Phone: [facility] 08-02-2024 12:46-0400 Body height 167.[address] Kameron Caruso MD Work Phone: [facility] 08-02-2024 12:46-0400 Body mass index (BMI) [Ratio] 26.6 kg/m2 Dr. Kameron Caruso MD Work Phone: [facility] 08-02-2024 12:46-0400 Body weight [address] Kameron Caruso MD Work Phone: [facility] 06-26-2024 09:39-0500 Body mass index (BMI) [Ratio] 27.25 kg/m2 Emma Sotomayor MOSAIC TILER.SPEECH THERAPIST Work Phone: [facility] 06-26-2024 09:39-0500 Body weight 78.93 kg Emma Sotomayor MOSAIC TILER.SPEECH THERAPIST Work Phone: [facility] 06-26-2024 09:39-0500 Diastolic blood pressure 88 mm[Hg] Emma Sotomayor MOSAIC TILER.SPEECH THERAPIST Work Phone: [facility] 06-26-2024 09:39-0500 Heart rate 93 /min Emma Sotomayor MOSAIC TILER.SPEECH THERAPIST Work Phone: [facility] 06-26-2024 09:39-0500 Respiratory rate 16 /min Emma Sotomayor MOSAIC TILER.SPEECH THERAPIST Work Phone: [facility] 06-26-2024 09:39-0500 SaO2% (BldA) [Mass fraction] 98 % Emma Sotomayor MOSAIC TILER.SPEECH THERAPIST Work Phone: [facility] 06-26-2024 09:39-0500 Systolic blood pressure 144 mm[Hg] Emma Sotomayor MOSAIC TILER.SPEECH THERAPIST Work Phone: [facility] 05-31-2024 08:56-0500 Diastolic blood pressure 84 mm[Hg] Kameron Caruso MD Work Phone: [facility] 05-31-2024 08:56-0500 Systolic blood pressure 136 mm[Hg] Kameron Caruso MD Work Phone: [facility] 05-31-2024 08:47-0500 Body mass index (BMI) [Ratio] 27.28 kg/m2 Kameron Caruso MD Work Phone: [facility] 05-31-2024 08:47-0500 Body weight 79 kg Kameron Caruso MD Work Phone: [facility] 05-31-2024 08:47-0500 Heart rate 100 /min Kameron Caruso MD Work Phone: [facility] 05-31-2024 08:47-0500 Respiratory rate 18 /min Kameron Caruso MD Work Phone: [facility] 11-28-2023 09:42-0400 Diastolic blood pressure 78 mm[Hg] Kameron Caruso MD Work Phone: [facility] 11-28-2023 09:42-0400 Systolic blood pressure 142 mm[Hg] Kameron Caruso MD Work Phone: [facility] 11-28-2023 09:41-0400 Body mass index (BMI) [Ratio] 27.82 kg/m2 Kameron Caruso MD Work Phone: [facility] 11-28-2023 09:41-0400 Body weight 80.56 kg Kameron Caruso MD Work Phone: [facility] 11-28-2023 09:41-0400 Heart rate 68 /min Kameron Caruso MD Work Phone: [facility] 11-28-2023 09:41-0400 Respiratory rate 18 /min Kameron Caruso MD Work Phone: [facility] 10-10-2023 07:31-0400 Body mass index (BMI) [Ratio] 28.35 kg/m2 David Dupree APRN.SPEECH THERAPIST Work Phone: [facility] 10-10-2023 07:31-0400 Body temperature 97.5 [degF] David Dupree APRN.SPEECH THERAPIST Work Phone: [facility] 10-10-2023 07:31-0400 Body weight 82.1 kg [facility] [employer]ER.SPEECH THERAPIST Work Phone: [facility] 10-10-2023 07:31-0400 Diastolic blood pressure 82 mm[Hg] [facility] MOS[employer] TILER.SPEECH THERAPIST Work Phone: [facility] 10-10-2023 07:31-0400 Heart rate 58 /min [facility]IL[facility].SPEECH THERAPIST Work Phone: [facility] 10-10-2023 07:31-0400 Respiratory rate 18 /min [facility] MOSAIC TILER.SPEECH THERAPIST Work Phone: [facility] 10-10-2023 07:31-0400 SaO2% (BldA) [Mass fraction] 100 % [facility] MOS[employer] TILER.SPEECH THERAPIST Work Phone: [facility] 10-10-2023 07:31-0400 Systolic blood pressure 128 mm[Hg] [facility]AIC TILER.SPEECH THERAPIST Work Phone: [facility] 09-29-2023 14:14-0400 Body mass index (BMI) [Ratio] 29 kg/m2 Radha Levine MOSAIC TILER.SPEECH THERAPIST Work Phone: [facility] 09-29-2023 14:14-0400 Body temperature 97.81 [degF] Radha Levine MOSAIC TILER.SPEECH THERAPIST Work Phone: [facility] 09-29-2023 14:14-0400 Body weight 84 kg Radha Levine MOSAIC TILER.SPEECH THERAPIST Work Phone: [facility] 09-29-2023 14:14-0400 Diastolic blood pressure 91 mm[Hg] Radha Levine MOSAIC TILER.SPEECH THERAPIST Work Phone: [facility] 09-29-2023 14:14-0400 Heart rate 54 /min Radha Levine MOSAIC TILER.SPEECH THERAPIST Work Phone: [facility] 09-29-2023 14:14-0400 Respiratory rate 18 /min Radha Levine MOSAIC TILER.SPEECH THERAPIST Work Phone: [facility] 09-29-2023 14:14-0400 SaO2% (BldA) [Mass fraction] 99 % Radha Levine MOSAIC TILER.SPEECH THERAPIST Work Phone: [facility] 09-29-2023 14:14-0400 Systolic blood pressure 148 mm[Hg] Radha Levine MOSAIC TILER.SPEECH THERAPIST Work Phone: [facility] 05-27-2022 09:42-0500 Body weight 83.83 kg Kameron Caruso MD Work Phone: [facility] 05-27-2022 09:42-0500 Diastolic blood pressure 84 mm[Hg] Kameron Caruso MD Work Phone: [facility] 05-27-2022 09:42-0500 Heart rate 68 /min Kameron Caruso MD Work Phone: [facility] 05-27-2022 09:42-0500 Respiratory rate 16 /min Kameron Caruso MD Work Phone: [facility] 05-27-2022 09:42-0500 Systolic blood pressure 136 mm[Hg] Kameron Caruso MD Work Phone: [facility] 03-02-2022 10:52-0400 Diastolic blood pressure 76 mm[Hg] Emma Canaleshof MOSAIC TILER.SPEECH THERAPIST Work Phone: [facility] 03-02-2022 10:52-0400 Heart rate 92 /min Emma Tannhof MOSAIC TILER.SPEECH THERAPIST Work Phone: [facility] 03-02-2022 10:52-0400 Respiratory rate 18 /min Emma Tannhof MOSAIC TILER.SPEECH THERAPIST Work Phone: [facility] 03-02-2022 10:52-0400 Systolic blood pressure 140 mm[Hg] Emma Tannhof MOSAIC TILER.SPEECH THERAPIST Work Phone: [facility] 11-23-2021 09:39-0400 Body weight 83.1 kg Kameron Caruso MD Work Phone: [facility] 07-12-2022 09:39-0400 Diastolic blood pressure 80 mm[Hg] Kameron Caruso MD Work Phone: [facility] 11-23-2021 09:39-0400 Heart rate 84 /min Kameron Caruso MD Work Phone: [facility] 11-23-2021 09:39-0400 Respiratory rate 16 /min Kameron Caruso MD Work Phone: [facility] 11-23-2021 09:39-0400 Systolic blood pressure 138 mm[Hg] Kameron Caruso MD Work Phone: [facility] 10-16-2019 10:09-0400 BP Diastolic 72 mm[Hg] [facility] [place] 10-16-2019 10:09-0400 BP Systolic 144 mm[Hg] Santiago Jose [facility] , [place] 10-16-2019 10:09-0400 Pulse (Heart Rate) 62 /min [facility] 10-16-2019 10:09-0400 Pulse Oximetry 98 % Santiago Miller [facility] , [place] 10-16-2019 10:09-0400 Respiratory Rate 18 /min Santiago Miller [facility], [place] 10-16-2019 09:15-0400 BMI (Body Mass Index) 29.44 kg/m2 Santiago Miller [facility] 10-16-2019 09:15-0400 Body Temperature 97.81 [degF] Santiago Miller [facility] , [place] 10-16-2019 09:15-0400 Body weight 85.28 kg Santiago [facility] [place] 10-16-2019 09:15-0400 Height 170.2 cm Santiago Miller [facility] [place] 01-09-2019 12:06-0400 BP Diastolic 73 mm[Hg] Santiago Jose [facility] , [place] 01-09-2019 12:06-0400 BP Systolic 121 mm[Hg] Santiago Jose [facility] [place] 01-09-2019 11:50-0400 Pulse (Heart Rate) 64 /min Santiago Miller [facility], [place] 01-09-2019 11:50-0400 Pulse Oximetry 100 % Santiago Miller [facility] , [place] 01-09-2019 11:50-0400 Respiratory Rate 18 /min Santiago Miller [facility], [place] 01-09-2019 [id number] BMI (Body Mass Index) 28.82 kg/m2 Santiago Miller [facility], [place] 01-09-2019 [id number] Body weight 83.46 kg Santiago Miller [facility] , [place] 01-09-2019 [id number] Height 170.2 cm Santiago Miller [facility] , [place] 01-09-2019 10:27-0400 Body Temperature 97.5 [degF] Santiago Miller [facility], [place] Encounters Encounter Date Encounter Type Care Provider Facility Start: 11-26-2024 ambulatory Efewongbe Oleghe OLS Fa cility:[facility] Start: 11-26-2024 Registered Referred Safia Torres Start: 11-25-2024 ambulatory Efewdesireebe Enricoe OLS Fa cility:[facility] Start: 11-25-2024 Registered Referred Safia Torres Start: 11-19-2024 ambulatory Efewongbe Oleghe OLS Fa cility:[facility] Start: 11-19-2024 Registered Referred Safia Torres Start: 11-12-2024 ambulatory Efewongbe Oleghe OLS Fa cility:[facility] Start: 11-12-2024 Registered Referred Safia Torres Start: 11-05-2024 ambulatory Efewongbe Oleghe OLS Fa cility:[facility] Start: 11-05-2024 Registered Referred Safia Torres Start: 10-30-2024 End: 10-30-[address] Kameron Caruso MD Work Phone: -[facility] Start: 10-30-2024 End: 10-30-2024 Patient encounter procedure Bret Snyder NP-[facility] -[facility] Work Phone: Start: 10-29-2024 End: 10-29-[address] Safia Ruelas MD -[facility] Work Phone: Start: 10-29-2024 End: 10-29-[address] Kameron Caruso MD Work Phone: [facility] Start: 10-29-2024 Registered Referred Safia Torres Start: 10-23-2024 ambulatory Efsherry Ruelas OLS Fa cility:[facility] Start: 10-23-2024 Registered Referred Safia Torres Start: 10-22-2024 End: 10-22-2024 [facility] Start: 10-22-2024 End: 10-22-[address] Kameron Caruso MD Work Phone: [facility] Start: 10-22-2024 Registered Referred Safia Torres Start: 10-15-2024 ambulatory Efsherry Ruelas OLS Fa cility:[facility] Start: 10-15-2024 Registered Referred Safia Torres Start: 10-09-2024 End: 10-09-[address] Kameron Caruso MD Work Phone: [facility] Start: 10-09-2024 End: 10-09-2024 [facility] Phone: Start: 10-08-2024 ambulatory Efsherry Ruelas OLS Fa cility:[facility] Start: 10-08-2024 Registered Referred Safia Torres Start: 10-02-2024 End: 10-02-[address] Mj Benavides MD -[facility] Work Phone: Start: 10-02-2024 End: 10-02-[address] Kameron Caruso MD Work Phone: [facility] Work Phone: Start: 10-01-2024 ambulatory Efewjosé antonio Westone OLS Fa cility:[facility] Start: 10-01-2024 Registered Referred Safia Torres Start: 09-29-2024 ambulatory Efewongbe Olebonie OLS Fa cility:[facility] Start: 09-29-2024 Registered Referred Safia Torres Start: 09-24-2024 ambulatory Efewongbe Oleghe OLS Fa cility:[facility] Start: 09-24-2024 Registered Referred Safia Torres Start: 09-17-2024 ambulatory Efewongskye Westone OLS Fa cility:[facility] Start: 09-17-2024 Registered Referred Safia Torres Start: 09-11-2024 End: 09-11-2024 ambulatory Bret Snyder NP Facility:[facility] Start: 09-11-2024 End: 09-11-2024 Patient encounter procedure Bret Snyder PRICING LEAD- -[facility] Work Phone: Start: 09-10-2024 End: 09-10-[address] Safia Ruelas MD -[facility] Work Phone: Start: 09-10-2024 End: 09-10-2024 ambulatory Efsherry Westone Facility:[facility] Start: 09-10-2024 Registered Referred Safia Torres Start: 08-30-2024 End: 08-30-2024 Telephone encounter Kameron Caruso MD Work Phone: [facility] [place] Comment on above: [facility] amaya ng verbal agree to follow Start: 08-15-2024 End: 09-09-2024 Evaluation and management of inpatient SILVINO HA DO Tyler Garcia Start: 08-09-2024 Evaluation and manag ement of inpatient KAMERON CARUSO Facility:[facility] Start: 08-06-2024 Evaluation and manag ement of inpatient [facility] Start: 08-02-2024 End: 08-02-2024 ambulatory JUVENTINO ESSEX Facility:[facility] Start: 08-02-2024 End: 08-15-2024 Evaluation and [...] Kameron Caruso MD Work Phone: [facility] [place] Comment on above: medication not on cu rrent med list Start: 06-26-2024 End: 06-26-2024 Office outpatient visit 25 minutes Emma Sotomayor APRN.GARRETT Work Phone: [facility] [place] Comment on above: Atrial fibrillation, unspecified type (HCC) (Primary Dx); Hypothyroidism, unspecified type; Need for malaria prophylaxis Start: 06-26-2024 End: 06-26-2024 ambulatory EMMA SOTOMAYOR Facility:[facility] Start: 06-25-2024 ambulatory KAMERON CARUSO Facil ity:[facility] Start: 06-24-2024 End: 06-24-2024 Telephone encounter Kameron Caruso MD Work Phone: Family [facility] [place] Comment on above: Patient Update Start: 06-11-2024 End: 06-11-2024 Telephone encounter Kameron Caruso MD Work Phone: [facility] [place] Comment on above: Results Start: 06-11-2024 End: 06-11-2024 ambulatory [facility] Facility:[facility] Start: 06-10-2024 End: 06-11-2024 Telephone encounter Kameron Caruso MD Work Phone: [facility] [place] Comment on above: Medication Problem Start: 05-31-2024 End: 05-31-2024 ambulatory [facility] Facility:[facility] Start: 05-31-2024 End: 05-31-2024 Patient encounter [...] type (HCC) Start: 05-23-2024 End: 05-23-2024 [facility] Facility:[facility] Start: 11-28-2023 End: 11-28-2023 [facility] Facility:[facility] Start: 11-28-2023 End: 11-28-2023 Patient encounter procedure Kameron Caruso MD Work Phone: [facility] [place] Comment on above: 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, unspecified CKD stage, unspecified whether [facility] insulin use (HCC) (Primary Dx); Essential hypertension, benign; Chronic kidney disease, stage 3a (HCC); Hyperlipidemia, unspecified hyperlipidemia type; Hypothyroidism, unspecified type; Edema of left lower leg; Memory loss; Type 2 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, without long-term current use of insulin (HCC) Start: 11-27-2023 End: 11-27-2023 [facility] Facility:[facility] Start: 10-10-2023 End: 10-10-2023 [facility] [place] Facility:[facility] Start: 10-10-2023 End: 10-10-2023 Office outpatient visit 25 minutes David Joon MOSAIC TILER.SPEECH THERAPIST Work Phone: [facility] Comment on above: Rash (Primary Dx) Start: 09-29-2023 End: 09-29-2023 [facility] Start: 09-29-2023 End: 09-29-2023 Patient encounter procedure Radha Levine MOSAIC TILER.SPEECH THERAPIST Work Phone: [facility] Comment on above: Allergic contact lexi matitis due to plant (Primary Dx) Start: 09-19-2023 Refill Kameron nixon MD Work Phone: [facility] [place] Comment on above: Refill Request Start: 04-08-2023 Telephone encounter Kameron bucio MD Work Phone: [address] [place] [address] Comment on above: Refill Request Start: 11-25-2022 Telephone encounter Kameron bucio MD Work Phone: [facility] [place] Comment on above: Patient Question Start: 05-27-2022 End: 05-27-2022 Patient encounter procedure Kameron Caruso MD Work Phone: [facility] [place] Comment on above: Essential hypertensi on, benign (Primary Dx); Hypothyroidism, unspecified type; Type 2 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, without long-term current use of insulin (HCC); Hyperlipidemia, unspecified hyperlipidemia type; Chronic kidney disease, stage 3a (HCC); Edema of left lower leg; Wellness examination Start: 05-27-2022 End: 05-27-2022 Patient encounter status Kameron Caruso MD Work Phone: [facility] [place] Start: 04-11-2022 Refill Kameron [facility]ixon MD [facility] Phone: [facility] Comment on above: Refill Request Start: 03-02-2022 ambulatory Kameron nixon MD Work Phone: [facility] [place] Comment on above: Back Pain Start: 03-02-2022 End: 03-02-2022 Patient encounter procedure Emma Sotomayor MOSAIC TILER.SPEECH THERAPIST Work Phone: [facility] [place] Comment on above: Acute midline low ba ck pain without sciatica (Primary Dx) Start: 01-11-2022 Refill Mj ORTIZ RN.SPEECH THERAPIST Work Phone: [facility] [place] Comment on above: Refill Request Start: 01-11-2022 Refill Kameron nixon MD Work Phone: [facility] [place] Comment on above: Refill Request Start: 12-16-2021 Telephone encounter Kameron bucio MD Work Phone: [facility] [place] Comment on above: Diabetic Testing Sup plies Start: 11-23-2021 End: 11-23-2021 Refill Kameron Caruso MD Work Phone: [facility] [place] Comment on above: 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, unspecified CKD stage, unspecified whether [facility] insulin use (HCC) (Primary Dx); Essential hypertension, benign; Hyperlipidemia, unspecified hyperlipidemia type; Stage 3b chronic kidney disease (HCC); Hypothyroidism, unspecified type; Memory loss Start: 10-14-2021 Refill Kameron nixon MD Work Phone: [facility] Comment on above: Refill Request Start: 09-27-2021 Telephone encounter Kameron bucio MD Work Phone: [facility] Comment on above: information requeste d/rxs needed Start: 09-13-2021 Telephone encounter Kameron bucio MD Work Phone: [facility] Comment on above: Patient Question; Me [...] Date Procedure Procedure Detail Performing Clinician Start: 11-25-2024 [address] e detection Dr. Kameron Caruso MD Work Phone: Start: 10-23-[address] Kameron Caruso MD Work Phone: Start: 10-23-2024 Urnls dip stick/tabl et reagent auto microscopy Dr. Kameron Caruso MD Work Phone: Start: 10-02-2024 Evaluation of diagno stic study results Dr. Kameron Caruso MD Work Phone: Start: 09-29-2024 [address] diff[address] e detection Dr. Kameron Caruso MD Work Phone: Start: 08-15-2024 CARDIAC RHYTHM (SCANNED) Other Other OT Start: 08-15-2024 Glucose measurement, blood Christos Voss MD Work Phone: Start: 08-15-2024 Glucose measurement, blood Christos Voss MD Work Phone: Start: 08-15-2024 Assay of magnesium Abram Hwang Nadine MOSAIC TILER-SPEECH THERAPIST Work Phone: Start: 08-15-2024 Glucose measurement, elana Voss MD Work Phone: Start: 08-14-2024 Glucose measurement, elana Voss MD Work Phone: Start: 08-14-2024 Glucose measurement, blood Christos Voss MD Work Phone: Start: 08-14-2024 Glucose measurement, elana Voss MD Work Phone: Start: 08-14-2024 Assay of magnesium Abdoule rin M Nadine MOSAIC TILER-SPEECH THERAPIST Work Phone: Start: 08-13-2024 Glucose measurement, blood Christos Voss MD Work Phone: Start: 08-13-2024 Glucose measurement, blood Christos Voss MD Work Phone: Start: 08-13-2024 Glucose measurement, blood Christos Voss MD Work Phone: Start: 08-13-2024 Glucose measurement, blood Felicity Castellano MD Work Phone: Start: 08-13-2024 Assay of magnesium Nase rin M Nadine MOSAIC TILER-SPEECH THERAPIST Work Phone: Start: 08-13-2024 Glucose measurement, blood Felicity Castellano MD Work Phone: Start: 08-12-2024 Glucose measurement, blood Felicity Castellano MD Work Phone: Start: 08-12-2024 Glucose measurement, blood Felicity Castellano MD Work Phone: Start: 08-12-2024 Glucose measurement, blood Felicity Castellano MD Work Phone: Start: 08-12-2024 Assay of magnesium Nase rin M Nadine MOSAIC TILER-SPEECH THERAPIST Work Phone: Start: 08-12-2024 Glucose measurement, blood Feliciyt Castellano MD Work Phone: Start: 08-11-2024 Glucose measurement, blood Felicity Castellano MD Work Phone: Start: 08-11-2024 Glucose measurement, blood Felicity Castellano MD Work Phone: Start: 08-11-2024 Glucose measurement, blood Felicity aCstellano MD Work Phone: Start: 08-11-2024 Assay of magnesium Nase rin M Nadine MOSAIC TILER-SPEECH THERAPIST Work Phone: Start: 08-10-2024 Glucose measurement, blood Felicity Castellano MD Work Phone: Start: 08-10-2024 Glucose measurement, blood Felicity Castellano MD Work Phone: Start: 08-10-2024 End: 08-10-2024 Culture bacterial blood aerobic w/id isolates Radha Kayla Gr MOSAIC TILER-SPEECH THERAPIST Work Phone: Start: 08-10-2024 Glucose measurement, blood Felicity Castellano MD Work Phone: Start: 08-10-2024 End: 08-10-2024 Glucose measurement, blood Felicity Castellano MD Work Phone: Start: 08-10-2024 Glucose measurement, blood Felicity Castellano MD Work Phone: Start: 08-10-2024 Assay of magnesium Abram Hwang Nadine MOSAIC TILER-SPEECH THERAPIST Work Phone: Start: 08-10-2024 Glucose measurement, blood Felicity Castellano MD Work Phone: Start: 08-09-2024 Glucose measurement, blood Felicity Castellano MD Work Phone: Start: 08-09-2024 Glucose measurement, blood Felicity Csatellano MD Work Phone: Start: 08-09-2024 INTERVENTIONAL UPPER ENDOSCOPY Jonnie Mccabe MD Work Phone: Start: 08-09-2024 Level iv surg pathol ogy gross&microscopic exam Judson Keith DO Work Phone: Start: 08-09-2024 Glucose measurement, blood Felicity Castellano MD Work Phone: Start: 08-09-2024 Assay of magnesium Abdoule scott Schulteameh MOSAIC TILER-SPEECH THERAPIST Work Phone: Start: 08-09-2024 Glucose measurement, blood Felicity Castellano MD Work Phone: Start: 08-08-2024 Glucose measurement, blood Felicity Castellano MD Work Phone: Start: 08-08-2024 Culture bct isol&prs mptv id isolate ea urine Bella Cardenas MOSAIC TILER-SPEECH THERAPIST Work Phone: Start: 08-08-2024 EXTRA MICRO Bella matthews MOSAIC TILER-SPEECH THERAPIST Work Phone: Start: 08-08-2024 URINALYSIS REFLEX TO CULTURE Bella Cardenas MOSAIC TILER-SPEECH THERAPIST Work Phone: Start: 08-08-2024 Ct head/brain w/o co ntrast material Bella Cardenas MOSAIC TILER-SPEECH THERAPIST Work Phone: Start: 08-08-2024 Glucose measurement, blood Felicity Castellano MD Work Phone: Start: 08-08-2024 End: 08-08-2024 Glucose measurement, blood Felicity Castellano MD Work Phone: Start: 08-08-2024 Assay of magnesium Abram chavez Jaiden Nadine MOSAIC TILER-SPEECH THERAPIST Work Phone: Start: 08-07-2024 Glucose measurement, blood Felicity Castellano MD Work Phone: Start: 08-07-2024 Glucose measurement, blood Felicity Castellano MD Work Phone: Start: 08-07-2024 Glucose measurement, blood Felicity Castellano MD Work Phone: Start: 08-07-2024 Glucose measurement, blood Felicity Castellano MD Work Phone: Start: 08-06-2024 Glucose measurement, blood Felicity Castellano MD Work Phone: Start: 08-06-2024 Assay of magnesium Abdoulkayla scott Jaiden Nadine MOSAIC TILER-SPEECH THERAPIST Work Phone: Start: 08-06-2024 Glucose measurement, blood Felicity Castellano MD Work Phone: Start: 08-06-2024 Glucose measurement, blood Felicity Castellano MD Work Phone: Start: 08-06-2024 Radiologic exam swal low function contrast study Shanna Russ MOSAIC TILER-SPEECH THERAPIST Work Phone: Start: 08-06-2024 SPEECH MODIFIED KEAGAN UM SWALLOW Shanna Zamudio Teachico MOSAIC TILER-SPEECH THERAPIST Work Phone: Start: 08-06-2024 Glucose measurement, blood Felicity Castellano MD Work Phone: Start: 08-05-2024 Glucose measurement, blood Felicity Castellano MD Work Phone: Start: 08-05-2024 Assay of magnesium Abram Mccoy MOSAIC TILER-SPEECH THERAPIST Work Phone: Start: 08-05-2024 Glucose measurement, blood Felicity Castellano MD Work Phone: Start: 08-05-2024 Glucose measurement, blood Felicity Castellano MD Work Phone: Start: 08-05-2024 Echo tthrc r-t 2d w/wom-mode compl spec&colr d Taran Traore MOSAIC TILER-SPEECH THERAPIST Work Phone: Start: 08-05-2024 Glucose measurement, blood Felicity Castellano MD Work Phone: Start: 08-05-2024 Assay of magnesium Abram Mccoy MOSAIC TILER-SPEECH THERAPIST Work Phone: Start: 08-05-2024 Glucose measurement, blood [...] Start: 08-04-2024 Assay of magnesium Abram Mccoy MOSAIC TILER-SPEECH THERAPIST Work Phone: Start: 08-04-2024 Glucose measurement, blood Richard Mejia MD Work Phone: Start: 08-03-2024 Ct head/brain w/o co ntrast material Shaila L Ciupak PA-C Start: 08-03-2024 Sodium serum plasma or whole blood hSanna Denise MD Work Phone: Start: 08-03-2024 Glucose measurement, blood Richard Mejia MD Work Phone: Start: 08-03-2024 Radiologic exam abdo men 1 view Balbir Mccoy MOSAIC TILER-SPEECH THERAPIST Work Phone: Start: 08-03-2024 Glucose measurement, blood [...] brain stem w/o contrast material Taran Traore MOSAIC TILER-SPEECH THERAPIST Work Phone: Start: 08-03-2024 ABORH TYPE RECONFIRMATION Cindy CORDOVA Work Phone: Start: 08-03-2024 Assay of magnesium Abram Mccoy MOSAIC TILER-SPEECH THERAPIST Work Phone: Start: 08-02-2024 Glucose measurement, blood [...] Performed By: #### X M #### [facility] ([facility]) [address] [place] [address] Start: 08-02-2024 EXTRA MICRO Taran Traore MOSAIC TILER-SPEECH THERAPIST Work Phone: Start: 08-02-2024 Hemoglobin glycosylated a1c Balbir Mccoy MOSAIC TILER-SPEECH THERAPIST Work Phone: Start: 08-02-2024 Hepatic function panel Balbir Mccoy MOSAIC TILER-SPEECH THERAPIST Work Phone: Start: 08-02-2024 Iadna s aureus ampli fied probe tq Balbir Mccoy MOSAIC TILER-SPEECH THERAPIST Work Phone: Start: 08-02-2024 URINALYSIS REFLEX TO CULTURE Tarannehemiah Traore MOSAIC TILER-SPEECH THERAPIST Work Phone: Start: 08-02-2024 Urnls dip stick/tabl et reagent auto microscopy Tarannehemiah Traore MOSAIC TILER-SPEECH THERAPIST Work Phone: Start: 08-02-2024 SARS-CoV-2, Influenz a [...] Author Start: 08-15-2025 Complete blood count Hemoglobin/Hematocrit [facility] Start: 08-15-2025 Creatinine measurement Serum Creatinine [facility] Start: 08-02-2025 Thyroid stimulating hormone measurement [facility] Start: 06-26-2025 Annual PCP Team Chronic Disease Visit Annual PCP Team Chronic Disease Visit [facility] Start: 05-31-2025 Annual PCP Team Chronic Disease Visit Annual PCP Team Chronic Disease Visit [facility] Start: 05-31-2025 Covid-19 Vaccine ( season) Covid-19 Vaccine ( season) [facility] Comment on above: Postponed from 01/14/2024 (Declined at t his time) Start: 05-31-2025 Pneumococcal Vaccine: 50+ (2 of 2 - PPSV23) Pneumococcal Vaccine: 50+ (2 of 2 - PPSV23) [facility] Comment on above: Postponed from 12/19/2019 (Declined at t his time) Start: 05-23-2025 Creatinine measurement Serum Creatinine [facility] Start: 05-23-2025 Hepatitis B screening Urine Albumin:Creatinine Ratio [facility] Start: 05-23-2025 Hepatitis B surface antibody level LDL Cholesterol [facility] Start: 02-02-2025 Hemoglobin A[facility]c [facility] Start: 01-13-2025 Influenza vaccination [facility] Start: 01-03-2025 Glaucoma screening Dilated Retinal Exam [facility] Start: 12-24-2024 End: 12-24-2024 Patient encounter procedure 12/24/2024 9:20 AM EDT Office Visit [facility] [place] [address] [place] [id number] Kameron Caruso MD [address] [place] [address] 6 month follow up [facility] [place] Comment on above: 6 month follow up Start: 11-28-2024 End: 02-27-2025 Comprehensive metabolic 2000 panel - Serum or Plasma COMPREHENSIVE METABOLIC PANEL Lab Routine Essential hypertension, benign Chronic kidney disease, stage 3a (HCC) Hyperlipidemia, unspecified hyperlipidemia type Expected: 11/28/2024 (Approximate), Expires: 02/27/2025 [facility] Work Phone: Comment on above: Expected: 11/28/2024 (Approximate), Expi res: 02/27/2025 Start: 11-28-2024 End: 02-27-2025 Hemoglobin A1c in Blood HEMOGLOBIN A1C Lab Routine Expected: 11/28/2024 (Approximate), Expires: 02/27/2025 [facility] Comment on above: Expected: 11/28/2024 (Approximate), Expi res: 02/27/2025 Start: 11-28-2024 End: 02-27-2025 Lipid 1996 panel - Serum or Plasma LIPID PANEL BASIC Lab Routine Essential hypertension, benign Hyperlipidemia, unspecified hyperlipidemia type Expected: 11/28/2024 (Approximate), Expires: 02/27/2025 [facility] Comment on above: Expected: 11/28/2024 (Approximate), Expi res: 02/27/2025 Start: 11-28-2024 End: 02-27-2025 Thyrotropin [Units/volume] in Serum or Plasma THYROID STIMULATING HORMONE Lab Routine Hypothyroidism, unspecified type Expected: 11/28/2024 (Approximate), Expires: 02/27/2025 [facility] Comment on above: Expected: 11/28/2024 (Approximate), Expi res: 02/27/2025 Start: 11-27-2024 Annual PCP Team Chronic Disease Visit Annual PCP Team Chronic Disease Visit [facility] Start: 11-27-2024 Anxiety Screening Anxiety Screening [facility] Start: 11-27-2024 Depression Screening Depression Screening [facility] Start: 11-27-2024 RSV Vaccine (1 - 1-dose 60+ series) RSV Vaccine (1 - 1-dose 60+ series) [facility] Comment on above: Postponed from 2004 (Declined at t his time) Start: 11-27-2024 RSV Vaccine (1 - 1-dose 75+ series) RSV Vaccine (1 - 1-dose 75+ series) [facility] Comment on above: Postponed from 10/26/2019 (Declined at t his time) Start: 11-26-2024 Creatinine measurement Serum Creatinine [facility] Start: 11-26-2024 Hepatitis B surface antibody level LDL Cholesterol [facility] Start: 11-20-2024 Hemoglobin A1c measurement HbA1C [facility] Start: 11-11-2024 Influenza vaccination [facility] Comment on above: Postponed from 01/14/2024 (Declined at t his time) Start: 10-08-2024 End: 10-08-2024 ambulatory [facility] Start: 10-02-2024 Evaluation of diagnostic study results 12 Lead EKG performed by [facility] Start: 08-02-2024 [facility] Start: 08-02-2024 SARS-CoV-2, Influenza & RSV (PCR) SARS-CoV-2, Influenza & RSV (PCR) [facility] Start: 08-02-2024 End: 08-02-2024 [facility] Start: 08-02-2024 Electrocardiographic procedure [facility] Start: 08-02-2024 Oxygen therapy [facility] Start: 07-24-2024 End: 10-23-2024 Thyrotropin [Units/volume] in Serum or Plasma THYROID STIMULATING HORMONE Lab Routine Hypothyroidism, unspecified type Expected: 07/24/2024, Expires: 10/23/2024 [facility] Work Phone: Comment on above: Expected: 07/24/2024, Expires: Start: 07-24-2024 End: 10-23-2024 Thyroxine (T4) free [Mass/volume] in Serum or Plasma T4 FREE/FREE THYROXINE Lab Routine Hypothyroidism, unspecified type Expected: 07/24/2024, Expires: 10/23/2024 [facility] Comment on above: Expected: 07/24/2024, Expires: Start: 06-25-2024 End: 06-25-2024 Patient encounter procedure 06/25/2024 9:40 AM EST Office Visit Family [facility] [address] [place] [address] Kameron Caruso MD [address] [place] [address] 1 mo f/u, new dx afib. [facility] [place] Comment on above: 1 mo f/u, new dx afib. Start: 06-11-2024 End: 06-11-2024 Patient encounter procedure 06/11/2024 8:50 AM EST Office Visit Cardiology [address] [place] [address] Atrial fibrillation, unspecified type (HCC) [I48.91] Cardiology Comment on above: Atrial fibrillation, unspecified type (H CC) [I48.91] Start: 05-30-2024 Annual PCP Team Chronic Disease Visit Annual PCP Team Chronic Disease Visit [facility] Start: 05-30-2024 End: 08-29-2024 Comprehensive metabolic 2000 panel - Serum or Plasma COMPREHENSIVE METABOLIC PANEL Lab Routine Type 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, unspecified CKD stage, 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) Essential hypertension, benign Chronic kidney disease, stage 3a (HCC) Hyperlipidemia, unspecified hyperlipidemia type Expected: 05/30/2024 (Approximate), Expires: 08/29/2024 [facility] Work Phone: Comment on above: Expected: 05/30/2024 (Approximate), Expi res: 08/29/2024 Start: 05-30-2024 Covid-19 Vaccine (2022- season) Covid-19 Vaccine (2022- season) [facility] Comment on above: Postponed from 01/13/2023 (Declined at t his time) Start: 05-30-2024 End: 08-29-2024 Hemoglobin A1c in Blood HEMOGLOBIN A1C Lab Routine Type 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, unspecified CKD stage, unspecified whether [facility] use (HCC) Expected: 05/30/2024 (Approximate), Expires: 08/29/2024 [facility] Comment on above: Expected: 05/30/2024 (Approximate), Expi res: 08/29/2024 Start: 05-30-2024 Hepatitis C screening Hepatitis C Screening [facility] Comment on above: Postponed from 1962 (Declined at t his time) Start: 05-30-2024 End: 08-29-2024 Lipid 1996 panel - Serum or Plasma LIPID PANEL BASIC Lab Routine Type 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, unspecified CKD stage, 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) Essential hypertension, benign Hyperlipidemia, unspecified hyperlipidemia type Expected: 05/30/2024 (Approximate), Expires: 08/29/2024 [facility] Comment on above: Expected: 05/30/2024 (Approximate), Expi res: 08/29/2024 Start: 05-30-2024 End: 08-29-2024 Microalbumin/Creatinine [Mass Ratio] in Urine ALBUMIN/CREATININE RATIO, URINE Lab Routine Type 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, unspecified CKD stage, 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) Expected: 05/30/2024 (Approximate), Expires: 08/29/2024 [facility] Comment on above: Expected: 05/30/2024 (Approximate), Expi res: 08/29/2024 Start: 05-30-2024 Pneumococcal Vaccine: 65+ (2 of 2 - PPSV23 or PCV20) Pneumococcal Vaccine: 65+ (2 of 2 - PPSV23 or PCV20) [facility] Comment on above: Postponed from 12/19/2019 (Declined at t his time) Start: 05-30-2024 End: 08-29-2024 Thyrotropin [Units/volume] in Serum or Plasma THYROID STIMULATING HORMONE Lab Routine Hypothyroidism, unspecified type Expected: 05/30/2024 (Approximate), Expires: 08/29/2024 [facility] Comment on above: Expected: 05/30/2024 (Approximate), Expi res: 08/29/2024 Start: 05-30-2024 End: 05-30-2024 Patient encounter procedure 05/30/2024 9:40 AM EST Office Visit Family [place] Pitts [address] [place] [address] Kameron Caruso MD [address] [place] [id number] 6 mo f/u Family [place] Pitts Comment on above: 6 mo f/u Start: 05-29-2024 Hemoglobin A1c measurement HbA1C [facility] Start: 05-16-2024 Creatinine measurement Serum Creatinine [facility] Start: 05-16-2024 Hepatitis B screening Urine Albumin:Creatinine Ratio [facility] Start: 05-16-2024 Hepatitis B surface antibody level LDL Cholesterol [facility] Start: 05-15-2024 Advance Directive Discussion Advance Directive Discussion [facility] Start: 01-14-2024 Influenza vaccination [facility] Start: 01-14-2024 [facility] Start: 01-04-2024 Glaucoma screening Dilated Retinal Exam [facility] Start: 01-04-2024 Hepatitis C antibody, confirmatory test Dilated Retinal Exam [facility] Start: 11-28-2023 End: 11-28-2023 Patient encounter procedure 11/28/2023 9:40 AM EDT Office Visit Family [place] Pitts [address] [place] [id number] Kameron Caruso MD [address] [place] [id number] 6 mo follow up Family [place] Pitts Comment on above: 6 mo follow up Start: 11-26-2023 ANNUAL PCP TEAM CHRONIC DISEASE VISIT ANNUAL PCP TEAM CHRONIC DISEASE VISIT [facility] Start: 11-26-2023 BP CONTROLLED (<130/80) BP CONTROLLED (<130/80) [facility] Start: 11-23-2023 Complete blood count Hemoglobin/Hematocrit [facility] Start: 11-23-2023 HEMOGLOBIN/HEMATOCRIT HEMOGLOBIN/HEMATOCRIT [facility] Start: 11-23-2023 Hepatitis B surface antibody level LDL CHOLESTEROL [facility] Start: 11-23-2023 SERUM CREATININE SERUM CREATININE [facility] Start: 11-14-2023 Hemoglobin A1c measurement HbA1C [facility] Start: 05-27-2023 ANNUAL PCP TEAM CHRONIC DISEASE VISIT ANNUAL PCP TEAM CHRONIC DISEASE VISIT [facility] Start: 05-27-2023 COVID-19 VACCINE (2 - Booster for Alyssa series) COVID-19 VACCINE (2 - Booster for Alyssa series) [facility] Comment on above: Postponed from 09/17/2020 (Declined at t his time) Start: 05-27-2023 HEPATITIS C SCREENING HEPATITIS C SCREENING [facility] Comment on above: Postponed from 1962 (Declined at t his time) Start: 05-25-2023 Hemoglobin A1c/Hemoglobin.total in Blood HBA1C [facility] Start: 05-19-2023 HEMOGLOBIN/HEMATOCRIT HEMOGLOBIN/HEMATOCRIT [facility] Start: 05-19-2023 Hepatitis B surface antibody level LDL CHOLESTEROL [facility] Start: 05-19-2023 SERUM CREATININE SERUM CREATININE [facility] Start: 05-15-2023 Advance Directive Discussion Advance Directive Discussion [facility] Start: 05-15-2023 Behavioral Health Screening Behavioral Health Screening [facility] Start: 03-02-2023 ANNUAL PCP TEAM CHRONIC DISEASE VISIT ANNUAL PCP TEAM CHRONIC DISEASE VISIT [facility] Start: 01-13-2023 Covid-19 Vaccine () Covid-19 Vaccine () [facility] Start: 01-13-2023 Influenza vaccination [facility] Start: 12-27-2022 Hepatitis C antibody, confirmatory test DILATED RETINAL EXAM [facility] Start: 11-24-2022 End: 01-24-2023 CBC panel - Blood by Automated count CBC Lab Routine Essential hypertension, benign Hypothyroidism, unspecified type Expected: 11/24/2022 (Approximate), Expires: 01/24/2023 [facility] Work Phone: Comment on above: Expected: 11/24/2022 (Approximate), Expi res: 01/24/2023 Start: 11-24-2022 End: 01-24-2023 Comprehensive metabolic 2000 panel - Serum or Plasma COMP METABOLIC PANEL Lab Routine Essential hypertension, benign Type 2 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, without long-term current use of insulin (HCC) Hyperlipidemia, unspecified hyperlipidemia type Expected: 11/24/2022 (Approximate), Expires: 01/24/2023 [facility] Work Phone: Comment on above: Expected: 11/24/2022 (Approximate), Expi res: 01/24/2023 Start: 11-24-2022 End: 01-24-2023 Hemoglobin A1c in Blood HGB A1C Lab Routine Type 2 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, without long-term current use of insulin (HCC) Expected: 11/24/2022 (Approximate), Expires: 01/24/2023 [facility] Work Phone: Comment on above: Expected: 11/24/2022 (Approximate), Expi res: 01/24/2023 Start: 11-24-2022 End: 01-24-2023 Lipid 1996 panel - Serum or Plasma LIPID PANEL BASIC Lab Routine Essential hypertension, benign Type 2 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, without long-term current use of insulin (HCC) Hyperlipidemia, unspecified hyperlipidemia type Expected: 11/24/2022 (Approximate), Expires: 01/24/2023 [facility] Work Phone: Comment on above: Expected: 11/24/2022 (Approximate), Expi res: 01/24/2023 Start: 11-24-2022 End: 01-24-2023 Thyrotropin [Units/volume] in Serum or Plasma TSH BLD Lab Routine Hypothyroidism, unspecified type Expected: 11/24/2022 (Approximate), Expires: 01/24/2023 [facility] Work Phone: Comment on above: Expected: 11/24/2022 (Approximate), Expi res: 01/24/2023 Start: 11-23-2022 3 comp foot exam completed DIABETIC FOOT EXAM [facility] Start: 11-23-2022 ANNUAL PCP TEAM CHRONIC DISEASE VISIT ANNUAL PCP TEAM CHRONIC DISEASE VISIT [facility] Start: 11-23-2022 Diabetic foot examination Diabetic Foot Exam [facility] Start: 11-20-2022 Hepatitis B screening URINE ALBUMIN:CREATININE RATIO [facility] Start: 11-20-2022 Hepatitis B surface antibody level LDL CHOLESTEROL [facility] Start: 11-20-2022 SERUM CREATININE SERUM CREATININE [facility] Start: 11-16-2022 Hemoglobin A1c/Hemoglobin.total in Blood HBA1C [facility] Start: 11-11-2022 Influenza vaccination INFLUENZA (#1) [facility] Comment on above: Postponed from 01/13/2022 (Declined at t his time) Start: 05-26-2022 End: 07-26-2022 CBC panel - Blood by Automated count CBC Lab Routine Essential hypertension, benign Stage 3b chronic kidney disease (HCC) Expected: 05/26/2022 (Approximate), Expires: 07/26/2022 [facility] Work Phone: Comment on above: Expected: 05/26/2022 (Approximate), Expi res: 07/26/2022 Start: 05-26-2022 End: 07-26-2022 Comprehensive metabolic 2000 panel - Serum or Plasma COMP METABOLIC PANEL Lab Routine Type 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, unspecified CKD stage, 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) Essential hypertension, benign Hyperlipidemia, unspecified hyperlipidemia type Stage 3b chronic kidney disease (HCC) Expected: 05/26/2022 (Approximate), Expires: 07/26/2022 [facility] Work Phone: Comment on above: Expected: 05/26/2022 (Approximate), Expi res: 07/26/2022 Start: 05-26-2022 End: 07-26-2022 Hemoglobin A1c in Blood HGB A1C Lab Routine Type 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, unspecified CKD stage, 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) Expected: 05/26/2022 (Approximate), Expires: 07/26/2022 [facility] Work Phone: Comment on above: Expected: 05/26/2022 (Approximate), Expi res: 07/26/2022 Start: 05-26-2022 End: 07-26-2022 Lipid 1996 panel - Serum or Plasma LIPID PANEL BASIC Lab Routine Essential hypertension, benign Hyperlipidemia, unspecified hyperlipidemia type Expected: 05/26/2022 (Approximate), Expires: 07/26/2022 [facility] Work Phone: Comment on above: Expected: 05/26/2022 (Approximate), Expi res: 07/26/2022 Start: 05-26-2022 End: 07-26-2022 Thyrotropin [Units/volume] in Serum or Plasma TSH BLD Lab Routine Hypothyroidism, unspecified type Expected: 05/26/2022 (Approximate), Expires: 07/26/2022 [facility] Work Phone: Comment on above: Expected: 05/26/2022 (Approximate), Expi res: 07/26/2022 Start: 05-23-2022 Hemoglobin A1c/Hemoglobin.total in Blood HBA1C [facility] Start: 05-18-2022 ANNUAL PCP TEAM CHRONIC DISEASE VISIT ANNUAL PCP TEAM CHRONIC DISEASE VISIT [facility] Start: 05-17-2022 Hepatitis B surface antibody level LDL CHOLESTEROL [facility] Start: 05-17-2022 SERUM CREATININE SERUM CREATININE [facility] Start: 05-15-2022 ADVANCE DIRECTIVE DISCUSSION ADVANCE DIRECTIVE DISCUSSION [facility] Start: 01-13-2022 Influenza vaccination [facility] Start: 01-11-2022 Hepatitis C antibody, confirmatory test DILATED RETINAL EXAM [facility] Start: 11-14-2021 Hemoglobin A1c/Hemoglobin.total in Blood HBA1C [facility] Start: 11-06-2021 Screening for malignant neoplasm of breast [facility] Start: 11-05-2021 3 comp foot exam completed DIABETIC FOOT EXAM [facility] Start: 11-05-2021 Adult depression screening assessment DEPRESSION SCREENING [facility] Start: 11-04-2021 Hepatitis B screening URINE ALBUMIN:CREATININE RATIO [facility] Start: 10-15-2021 Hepa vaccine adult dose for intramuscular use HEPATITIS A VACCINE ADULT IM Immunization/Injection Routine Need for vaccination Expected: 10/15/2021 [facility] Work Phone: Comment on above: Expected: 10/15/2021 Start: 10-15-2021 Tdap vaccine 7 yrs/> im TDAP VACCINE AGE 7+ IM Immunization/Injection Routine Need for vaccination Expected: 10/15/2021 [facility] Work Phone: Comment on above: Expected: 10/15/2021 Start: 05-15-2021 ADVANCE DIRECTIVE DISCUSSION ADVANCE DIRECTIVE DISCUSSION [facility] Start: 05-15-2021 DEPRESSION ASSESSMENT DEPRESSION ASSESSMENT [facility] Start: 10-23-2020 PNEUMOCOCCAL: 65+ (2 - PPSV23 if available, else PCV20) PNEUMOCOCCAL: 65+ (2 - PPSV23 if available, else PCV20) [facility] Start: 10-23-2020 PNEUMOCOCCAL: 65+ (2 - PPSV23 or PCV20) PNEUMOCOCCAL: 65+ (2 - PPSV23 or PCV20) [facility] Start: 10-16-2020 HEMOGLOBIN/HEMATOCRIT HEMOGLOBIN/HEMATOCRIT [facility] Start: 09-17-2020 COVID-19 VACCINE (2 - Booster for Alyssa series) COVID-19 VACCINE (2 - Booster for Alyssa series) [facility] Start: 12-19-2019 Pneumococcal vaccination [facility] Start: 12-19-2019 Pneumococcal Vaccine: 65+ (2 - PPSV23 or PCV20) Pneumococcal Vaccine: 65+ (2 - PPSV23 or PCV20) [facility] Start: 12-19-2019 PNEUMOCOCCAL: 65+ (2 - PPSV23 or PCV20) PNEUMOCOCCAL: 65+ (2 - PPSV23 or PCV20) [facility] Start: 11-08-2019 Screening for malignant neoplasm of colon [facility] Start: 10-26-2019 [facility] Start: 01-13-2019 Influenza vaccination Flu vaccine (#1) [place], [place] Start: 12-23-2018 Annual Wellness Visit (AWV) Annual Wellness Visit (AWV) [place], [place] Start: 2009 DEXA (modify frequency per FRAX score) DEXA (modify frequency per FRAX score) [place] Start: 2009 Pneumococcal 65+ years Vaccine (1 of 1 - PPSV23) Pneumococcal 65+ years Vaccine (1 of 1 - PPSV23) [place] Start: 2009 Pneumococcal 65+ years Vaccine (1 of 2 - PCV13) Pneumococcal 65+ years Vaccine (1 of 2 - PCV13) [place] Start: 10-26-2007 Annual Wellness Visit (AWV) Annual Wellness Visit (AWV) [place] Start: 2004 Hepatitis B Vaccine (1 of 3 - Risk 3-dose series) Hepatitis B Vaccine (1 of 3 - Risk 3-dose series) [facility] Start: 2004 RSV Vaccine (1 - 1-dose 60+ series) RSV Vaccine (1 - 1-dose 60+ series) [facility] Start: 10-26-1999 Screening for osteoporosis DEXA (modify frequency per FRAX score) [place], [place] Start: 1994 Breast cancer screen Breast cancer screen [place], [place] Start: 1994 Colon cancer screen colonoscopy Colon cancer screen colonoscopy [place], [place] Start: 1994 Screening for malignant neoplasm of breast Breast cancer screen [place], [place] Start: 1994 Screening for malignant neoplasm of colon Colon cancer screen colonoscopy [place], [place] Start: 1994 Shingles Vaccine (1 of 2) Shingles Vaccine (1 of 2) [place] Start: 1984 Lipid screen Lipid screen [place], [place] Start: 1965 Screening for malignant neoplasm of cervix [facility] Start: 10-26-1963 DTaP/Tdap/Td vaccine (1 - Tdap) DTaP/Tdap/Td vaccine (1 - Tdap) [place], [place] Start: 10-26-1963 Third diphtheria, tetanus and acellular pertussis (DTaP) vaccination [facility] Start: 10-26-1963 Urine microalbumin profile [facility] Start: 1962 BP CONTROLLED (<130/80) BP CONTROLLED (<130/80) [facility] Start: 1962 HEPATITIS C SCREENING HEPATITIS C SCREENING [facility] Start: 1954 Lipid panel Lipid screen [place], [place] Start: 1944 Creatinine measurement Creatinine monitoring [place], [place] Start: 1944 Creatinine monitoring Creatinine monitoring [place], [place] Start: 1944 Hepatitis C screen Hepatitis C screen [place], [place] Start: 1944 Hepatitis C screening [facility] Start: 1944 Potassium monitoring Potassium monitoring [place] Start: 1944 [facility] Start: 1944 Tetanus vaccination [facility] End: 01-09-2019 Blood glucose - POCT Blood glucose - POCT Point of Care Testing Routine One Time for 1 Occurrences starting 01/09/2019 until 01/09/2019 [place] Comment on above: One Time for 1 Occurrences starting 12/14 until 01/09/2019 ECG COMPLETE [facility] Comment on above: Ordered: 05/31/2024 End: 05-31-2025 Echocardiography ECHO Cardiology Routine Atrial fibrillation, unspecified type (HCC) 1 Occurrences starting 05/31/2024 until 05/31/2025 [facility] Comment on above: 1 Occurrences starting 05/31/2024 until 05/31/2025 Patient referral [facility] Work Phone: End: 01-09-2019 Pulse Oximetry Spot Check Pulse Oximetry Spot Check Respiratory Care Routine One Time for 1 Occurrences starting 01/09/2019 until 01/09/2019 [place] Comment on above: One Time for 1 Occurrences starting 12/14 until 01/09/2019 End: 08-02-2024 PV FLUOROSCOPY OR [facility] End: 08-02-2024 Standard ECG [facility] Immunizations Immunization Date Immunization Notes Care Provider Fa sonya 07-23-2020 SARS-CoV-2 (COVID-19 ) Ad26 vaccine, recombinant SILVINO HA DO [facility] Garcia Comment on above: Result Comment: 2024: [id number] 02-27-2020 influenza, high dose seasonal, preservative-free Kameron Caruso MD Work Phone: [facility] 02-27-2020 influenza virus vaccine, unspecified formulation Kameron Caruso MD Work Phone: [facility] 10-24-2019 pneumococcal conjuga te vaccine, 13 valent Kameron Caruso MD Work Phone: [facility] 10-24-2019 zoster vaccine recombinant Kameron Caruso MD Work Phone: [facility] 07-25-2019 influenza virus vaccine, unspecified formulation SILVINO HA DO [facility] 07-25-2019 influenza, seasonal, injectable Kameron Caruso MD Work Phone: [facility] 07-25-2019 zoster vaccine recombinant Kameron Caruso MD Work Phone: [facility] 04-13-2015 influenza virus vaccine, unspecified formulation SILVINO HA DO [facility] 05-01-2014 influenza virus vaccine, unspecified formulation SILVINO HA DO [facility] 05-01-2014 influenza, high dose seasonal, preservative-free Kameron Caruso MD Work Phone: [facility] 02-22-2012 influenza virus vaccine, unspecified formulation Kameron Caruso MD Work Phone: [facility] Work Phone: 03-19-2007 influenza virus vaccine, unspecified formulation Kameron Caruso MD Work Phone: [facility] Work Phone: Payers Date Payer Category Payer Medicare [id number] 2024 Unknown [id number] 2024 Self-pay 2018 Medicare [employer]-MEDICA RE ADVANTAGE [employer]ICARE ADVANTAGE xxxxxxxxxxx 2018-Present [phone] [address] [place] [address] xxxxxxxxxxx [id number] 2018 Unknown [id number] 2013 Medicare [employer] [id number] 2013-Present [phone] [address] [place] [address] O [id number] 2013 Medicare [id number] 2013 Medicare (Managed Care) 1.2. [id number] 2013 Medicare [id number] 1944 Unknown [id number] 2.840.1.582580.3.579.2 .627 1944 Unknown [id number] 2.840.1.212419.3.579.2 .732 1944 Unknown [id number] 2.840.1.956039.3.579.2 .627 1944 Unknown [id number] 2.16840.1.285430.3.579.2 .594 1944 Unknown [id number] 2.16840.1.669272.3.579.2 .594 Unknown [id number] 2.16840.1.833246.3.579.2 .462 Unknown [id number] 2.16.840.1.510587.3.579.2 .462 Unknown [id number] 2.16.840.1.383325.3.579.2 .462 Unknown [id number] 2.16.840.1.594085.3.579.2 .462 Unknown [id number] 2.16840.1.547568.3.579.2 .462 Unknown [id number] 2.16.840.1.610863.3.579.2 .462 Unknown [id number] 2.16.840.1.176734.3.579.2 .462 Unknown [id number] 2.16.840.1.553172.3.579.2 .462 Unknown [id number] 2.16.840.1.597500.3.579.2 .462 Unknown [id number] 2.16.840.1.695302.3.579.2 .462 Unknown [id number] 2.840.1.660501.3.579.2 .462 Unknown [id number] 2.840.1.504759.3.579.2 .462 Unknown [id number] 2.16.840.1.123381.3.579.2 .462 Unknown [id number] 2.840.1.092538.3.579.2 .462 Unknown [id number] 2.840.1.045370.3.579.2 .462 Unknown [id number] 2.840.1.336729.3.579.2 .462 Unknown [id number] 2.16840.1.162915.3.579.2 .462 Unknown [id number] 2.16840.1.406358.3.579.2 .462 Unknown [id number] 2.840.1.605369.3.579.2 .462 Unknown [id number] 2.840.1.387400.3.579.2 .462 Unknown [id number] 2.840.1.715262.3.579.2 .462 Unknown [id number] 2.840.1.212958.3.579.2 .462 Unknown [id number] 2.840.1.482406.3.579.2 .462 Social History Date Type Detail Facility Start: 01-09-2019 End: 08-02-2024 Tobacco smoking status NHIS Never smoker [facility] Start: 01-09-2019 End: 11-25-2022 Alcohol intake Never [facility] Work Phone: Start: 12-24-2018 History SDOH Alcohol Frequency 1 [facility] Start: 1945 Sex Assigned At Not on file [facility] Start: 10-16-2019 Alcohol intake Lifetime non-d hortencia (finding) [facility] Exposure to SARS-CoV -2 (event) Unable to assess [facility] Start: 05-18-2021 End: 06-26-2024 Alcohol intake Current non-drinker of alcohol (finding) [facility] Start: 11-13-2021 End: 03-02-2022 Exposure to SARS-CoV-2 (event) Not sure [facility] Start: 02-02-2011 End: 03-02-2022 Tobacco use and exposure Smokeless tobacco non-user [facility] Start: 11-25-2022 End: 11-28-2023 History of Social function [facility] Work Phone: Adult Depression Screening Assessment 0 [facility] Work Phone: Start: 06-22-2005 End: 08-02-2024 Sex Female (finding) [facility] Start: 1945 Sex Assigned At Female [facility] Sexual Orientation [facility] Medical Equipment Procedure Code Equipment Code Equipment Original Text Equipment Identifier Dates [id number], [id number], [id number] Start: 11-30-2020 End: 04-08-2023 Comment on above: [...] Facility 09-09-2024 Functional Status Room check performed Au anny [place] 09-09-2024 Functional Status [facility] [place] 09-09-2024 Functional Status Skin Care Prev entative Intervention(s) heel(s)s elevated [facility] [place] 09-08-2024 Functional Status [facility] [place] 09-08-2024 Functional Status [facility] [place] 09-06-2024 Functional Status 11pm-7am [facility] [place] 09-06-2024 Functional Status Antiembolism S tocking On/Re-applied bilateral knee high [facility] 09-05-2024 Functional Status [facility] [address] [facility] 09-05-2024 Functional Status Done Tyler [facility] 09-04-2024 Functional Status [facility] 09-04-2024 Functional Status [facility] 09-03-2024 Functional Status NPO Status Maintained A kai [place] 09-03-2024 Functional Status None [facility] [place] 09-03-2024 Functional Status [facility] [place] 08-29-[address] [facility] 08-29-2024 Functional Status [facility] [place] 08-27-2024 Functional Status Orthotics, Dev ice Worn Per Schedule Yes [facility] 08-27-2024 Functional Status [facility] [place] 08-26-2024 Functional Status [facility] [place] 08-23-2024 Functional Status [facility] [place] 08-23-2024 Functional Status Breakfast Percent 25 [facility] 08-20-2024 Functional Status [facility] [place] 08-19-2024 Functional Status [facility] [place] 08-16-2024 Functional Status Single level h ome, basement laundry [facility] 08-16-2024 Functional Status Outside Stairs Rail Rail on left going up [facility] 08-15-2024 Functional Status Sensory Defici ts Speech deficit [facility] 10-14-2014 Are you deaf, or do you have serious difficulty hearing No [facility] 10-14-2014 Are you blind, or do you have serious difficulty seeing, even when wearing glasses No [facility] 10-14-2014 Do you have serious difficulty walking or climbing stairs No [facility] 10-14-2014 Do you have difficul ty dressing or bathing No [facility] 10-14-2014 Because of a physica l, mental, or emotional condition, do you have difficulty doing errands alone such as visiting a physician's office or shopping No [facility] Mental Status Date Assessment Result Facility 09-09-2024 Mental Status Does not interact [facility] 09-08-2024 Mental Status [facility] Dyeepifanio jenkins 09-08-2024 Mental Status [facility] Tariq gregory 08-02-2024 Cognitive function Awake;Alert;F ollows Commands [facility] Work Phone: 10-14-2014 Because of a physica l, mental, or emotional condition, do you have serious difficulty concentrating, remembering, or making decisions No [facility] Clinical Notes 11-03-2020 to 10-02-2024 Note Date & Type Note Facility 10-02-2024 Evaluation note Diagnosis Onset Date Resolution Acute ischemic right MCA stroke acute October 02, 2024 9:29am Essential hypertension acute 2024 9:29am Hyperlipidemia acute October 02, 2024 9:29am Paroxysmal atrial fibrillation with RVR acute October 02, 2024 9:29am [facility] Work Phone: 1(717) 108-624804-28-2025 Note Discharge Instructions Thank you for allowing [facility] to assist you with your healthcare needs. The following is importantdischarge information regarding your hospital visit. Your Care Team KAMERON CARUSO MD Your Diagnosis CVA (cerebral vascular accident) Diabetes mellitus Dysphagia Hyperlipidemia Hypertension Osteoarthritis What to do next Follow Up Appointments Follow Up with JONNIE BANSAL MD Where[facility] Additional Information: GI, No appointment needed until PEG is ready to be removed or concerns arise Follow Up with KAMERON CARUSO MD When:Within 3-7 days Where:[address] [place] [address]- Additional Information: Please schedule follow up PCP appointment for after discharge from SNF, Bring discharge instructions with you Follow Up with RIMMA POWERS MD When:10/08/2024 04:00 PM EDT Where:[facility] ([address], [place]) Additional Information: Neurosurgeon [facility] Following Activity and [...] standard right Seat cushion, 99 month(s), Tyler [id number], 09/02/24 8:22:00 EDT Transfer of Care Wound [...] up; Report any skin changes you notice; LEFTPRAFO BOOT ON WHILE IN BED Transfer of [...] and or supplements as they may interact withyour home medications. What How Much When Why [...] survivors may be able to return to theirhomes, and others may need more specialized care [...] depending on your insurance coverage. Check with your[employer] company about what is covered. Keeping follow-up visits After a stroke, you will need to follow up regularly with a health care provider. You may also needrehabilitation, which can include physical therapy, occupational therapy, or speech-language therapy. Keeping these appointments is very important to your recovery after a stroke. Be sure to bring yourmedicine list and discharge papers with you to your appointments. If you need help to keep track ofyour schedule, use a calendar or appointment reminder. [...] speaking, slurred speech, or trouble understanding what peoplesay. T - Time. Time to call emergency [...] first symptoms. Your emergency responders or emergency roomstaff will need to know this information. Summary [...] 08/04/2017 Document Revised: 05/04/2018 Document Reviewed: 08/04/2017 [employer] Patient Education 2020 [employer]. Additional Information VACCINATE! IT SAVES LIVES! Members of the community who have not yet received the COVID-19 vaccine and would like to receive it can visit one of [facility] vaccine clinics. There are many vaccine clinic locations within the [facility]. For locations and available times, please visit https://[email or web address].[place].gov/. It is important to note that some COVID mobile vaccine clinics are held outdoors and may be canceled in rainy or stormy conditions. To learn more about pediatric vaccinations (ages 5-11), we invite you to visit the [facility] webpage. https://www.[email or web address].org/pages/7877-Sqvdn-Dnnpcaxreyj-Uxjlzhikse-Pwsso-Gra stions.htmlTo learn more about the COVID-19 vaccine, we invite you to visit the CDC website for a list of frequently asked questions.https://www.cdc.gov/coronavirus/2019-ncov/vaccines/faq.html [facility] Patient Portal Access Instructions: Stay connected with your healthcare team and access your personal medical information anytime with the [facility] Patient Portal. Please follow the directions below to create your [facility] account: 1.Access the email account you provided upon registration to the hospital/physician office.2.Look for an invitation email from [facility].3.Open the email and access the invitation link: AcceptInvitation to [facility].4.Fill in the required richards to create your account. To access your account, visit [email or web address]. Click the blue button labeled "Access Patient Portal" and then log in with the username and password that you created in the steps above. You will be able to view your test results, lab results, a summary of your visits, upcoming appointments and more. There is also a convenient messaging option where you can send secure messages to your p Beintoovider. In addition, you will have the ability to download any documents or summaries to your computer and/or send the information securely to a physician. Remember that your healthcare information is confidential, so carefully consider who you will allowto register on the [facility] Patient Portal for access to your information. You can also access the [facility] Patient Portal on the [facility] dahlia. Simply click on "Patient Portal" and then log into your account. If you would like to receive a full copy of your medical records, please contact the [facility] Medical Records Department by calling [phone], Monday through Monday between 8 a.m. and 4:30 p.m. HOW TO SAFELY DISPOSE OF PRESCRIPTION MEDICATIONS Please use one of the following methods to safely dispose of your unused medications. 1.Use a drug disposal kit: the drug disposal pouch allows you to safely discard your old and unuseddrugs. Ask your nurse to give you one when you are discharged.2.Visit a local take-back location: Many local pharmacies and police departments have programs that collect old and unwanted prescriptiondrugs. Call your local pharmacy or go to http://bit.ly/9T5Zn3e to find one close to you.3.Make use of household items: Use cat litter or old coffee grounds to dispose medications if other options arenot available. Mix your drugs with these household products, seal them in an airtight container andthrow it into the garbage. Call [facility]: [phone] to be sure your drugs can be [...] aware that I should contact my doctor. 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 The following is importantdischarge information regarding your hospital visit. Your Care Team KAMERON CARUSO MD Your Diagnosis CVA (cerebral vascular accident) Diabetes mellitus Dysphagia Hyperlipidemia Hypertension Osteoarthritis What to do next Follow Up Appointments Follow Up with JONNIE BANSAL MD Where:[facility] Additional Information: GI, No appointment needed until PEG is ready to be removed or concerns arise Follow Up with KAMERON CARUSO MD When:Within 3-7 days Where:[address] [place] [address]- Additional Information: Please schedule follow up PCP appointment for after discharge from SNF, Bring discharge instructions with you Follow Up with RIMMA POWERS MD When:10/08/2024 04:00 PM EDT Where:[facility] ([address], [place]) Additional Information: Neurosurgeon The Following Activity and [...] , standard right Seat cushion, 99 month(s), yTler [id number], 09/02/24 8:22:00 EDT Transfer of Care Wound [...] up; Report any skin changes you notice; LEFTPRAFO BOOT ON WHILE IN BED Transfer of [...] and or supplements as they may interact withyour home medications. What How Much When Instructions [...] survivors may be able to return to theirhomes, and others may need more specialized care [...] depending on your insurance coverage. Check with [employer] company about what is covered. Keeping follow-up visits After a stroke, you will need to follow up regularly with a health care provider. You may also needrehabilitation, which can include physical therapy, occupational therapy, or speech-language therapy. Keeping these appointments is very important to your recovery after a stroke. Be sure to bring yourmedicine list and discharge papers with you to your appointments. If you need help to keep track ofyour schedule, use a calendar or appointment reminder. [...] speaking, slurred speech, or trouble understanding what peoplesay. T - Time. Time to call emergency [...] first symptoms. Your emergency responders or emergency roomstaff will need to know this information. Summary [...] 08/04/2017 Document Revised: 05/04/2018 Document Reviewed: 08/04/2017 [employer] Patient Education 2020 [employer] Additional Information VACCINATE! IT SAVES LIVES! Members of the community who have not yet received the COVID-19 vaccine and would like to receive it can visit one of [facility] vaccine clinics. There are many vaccine clinic locations within the [facility]. For locations and available times, please visit https://[email or web address].[place].gov/. It is important to note that some COVID mobile vaccine clinics are held outdoors and may be canceled in rainy or stormy conditions. To learn more about pediatric vaccinations (ages 5-11), we invite you to visit the [facility] webpage. https://www.[email or web address].org/pages/7173-Wuqcx-Iwtntkwjlzc-Xvovzcmuwc-Jiqco-Rtl stions.htmlTo learn more about the COVID-19 vaccine, we invite you to visit the CDC website for a list of frequently asked questions.https://www.cdc.gov/coronavirus/2019-ncov/vaccines/faq.html [facility] Patient Portal Access Instructions: Stay connected with your healthcare team and access your personal medical information anytime with the [facility] Patient Portal. Please follow the directions below to create your [facility] account: 1.Access the email account you provided upon registration to the hospital/physician office.2.Look for an invitation email from [facility].3.Open the email and access the invitation link: AcceptInvitation to [facility].4.Fill in the required richards to create your account. To access your account, visit [email or web address]. Click the blue button labeled "Access Patient Portal" and then log in with the username and password that you created in the steps above. You will be able to view your test results, lab results, a summary of your visits, upcoming appointments and more. There is also a convenient messaging option where you can send secure messages to your p Beintoovider. In addition, you will have the ability to download any documents or summaries to your computer and/or send the information securely to a physician. Remember that your healthcare information is confidential, so carefully consider who you will allowto register on the [facility] Patient Portal for access to your information. You can also access the [facility] Patient Portal on the [facility] dahlia. Simply click on "Patient Portal" and then log into your account. If you would like to receive a full copy of your medical records, please contact the [facility] Medical Records Department by calling [phone], Monday through Monday between 8 a.m. and 4:30 p.m. HOW TO SAFELY DISPOSE OF PRESCRIPTION MEDICATIONS Please use one of the following methods to safely dispose of your unused medications. 1.Use a drug disposal kit: the drug disposal pouch allows you to safely discard your old and unuseddrugs. Ask your nurse to give you one when you are discharged.2.Visit a local take-back location: Many local pharmacies and police departments have programs that collect old and unwanted prescriptiondrugs. Call your local pharmacy or go to http://bit.Omicia/2Q4Uq0j to find one close to you.3.Make use of household items: Use cat litter or old coffee grounds to dispose medications if other options arenot available. Mix your drugs with these household products, seal them in an airtight container andthrow it into the garbage. Call [facility]: [phone] to be sure your drugs can be [...] aware that I should contact my doctor. 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 She was [facility] to [facility] from [facility] stay 08/02 - 08/15 who has a history of CAD, DM2, atrial fibrillation and hypertension whopresented to the ER after noting left-sided weakness and slurred speech. Originally presented to [facility] where CT head was obtained showing no acute hemorrhage or large territory stroke. CTAshowing mid right M1 occlusion, patient was not a TNK candidate. Patient was transferred to [facility]. On08/02 patient underwent thrombectomy with NSGY with TICI 2B revascularization. CT head showing acuteright basal ganglia hemorrhage with surrounding mass effect [...] self-care assistance needs decision made to request prison facility. Approval is requested. Patient was to follow-up with gastroenterology regarding PEG tube removal at LOC at discharge. Repeat head CT was performed due to persistent some somnolence with resolving basal ganglia stroke noted. Admit functional status was mod was substantial to dependent. Discharge functional status mod substantial. Rehab nursing needs included cardiopulmonary monitoring, pain management, wound care, bowel bladderprogram, Patient was discussed weekly team staff with [...] Ordered -- 08/15/24 17:18:00 EDT, AMI HEATON APRN-SPEECH THERAPIST, Skin Integrity per policy Physical Exam Vitals [...] discharge. Throat normal healthy dentition no redness orerythema. Neck: Trachea midline. No lymphatic adenopathy Cardiac: [...] oral tablet)1 tab(s) PEG tube every day. [id number] Microgram PEG tube once a day. metoprolol [...] KAMERON CARUSO MD When:Within 3-7 days Where:[address] [place] [address]- Additional Information: Please schedule follow up PCP appointment for after discharge from SNF, Bring discharge instructions with you Follow Up with RIMMA PWOERS MD When:10/08/2024 04:00 PM EDT Where:[facility] ([address], [place]) Additional Information: Neurosurgeon Follow Up Appointments No qualifying data available. Follow Up Labs/Studies Discharge Labs No Follow-up Labs Discharge Studies No Follow-up Studies Discharge Diet No qualifying data available. Discharge Activity No qualifying data available. Condition on Discharge Stable Discharge Disposition group home facility Information Provided To Patient and family Time Spent Greater than 35 minutes Digitally Signed by SILVINO HA DO on 09/09/2024 01:46 PM [address]28-2025 Nurse Progress note Nursing GG Entered On: 09/09/2024 10:55 EDT Performed On: 09/09/2024 10:55 EDT by Abigail Rodas RN Nursing GG's OT GG Grid Eating : Not Completed Abigail Rodas RN - 09/09/2024 10:55 EDT Digitally Signed by Abigail Rodas RN on 09/09/2024 10:[address] AM [address]27-2025 Nurse Progress note Nursing GG Entered On: 09/08/2024 17:39 EDT Performed On: 09/08/2024 17:39 EDT by Rob Alarcon RN Nursing GG's OT GG Grid Eating : Not Completed Oral Hygiene : Not Completed Toilet Hygiene : Substantial/Maximal Assistance Toilet Transfer : Substantial/Maximal Assistance Rob Alarcon RN - 09/08/2024 17:39 EDT Digitally Signed by Rob Alarcon RN on 09/08/2024 05:[address]27-2025 Nurse Progress note Pt had 250ml residual, 12:30pm bolus was held! Digitally Signed by Rob Alarcon RN on 09/08/2024 12:[address]25-2025 Physical medicine and rehab Progress note Rehab [...] disease, diabetes mellitus type 2, atrial relation, hype rtension, osteoarthritis, and hyperlipidemia who presented to the emergency room with noted left-sided weakness and slurred speech. She originally presented to [facility] with CT of the head was obtained showed no acute hemorrhage or large territory stroke. CTA showed mid right M1 occlusion however patient was not a TNK candidate. She was then transferred to a [facility] for further management. CT of head [...] ganglia and surrounding edema, mass effect with effacementof right lateral ventricle and midline shift to [...] continuous feedings. Today, patient is stable monitoring withtherapy. reports she is alert and more awake this morning. States that she did try to get out of bed overnight and appeared restless. Rhythm recently added yesterday for increasing lethargy. She denies any uncontrolled pain. Denies any lightheadedness, dizziness, or headache. Denies any glycemic reactions with medical team increasing metformin twice a day on 09/04. Denies any nausea, vomiti ng, or chills and reports she is tolerating her bolus feeding. Discussed with nursing. Medications reviewed. Goal is return home with spouse and home health care services. Tentative discharge date 09/07/2024. Patient to discharge to SNF. Medications (22) Active Scheduled: (12) apixaban 5 mg tablet 5 mg 1 tab(s), PEG, BID atorvastatin 80 mg tablet 80 mg 1 tab(s), PEG, Daily balsam Kihei-castor oil topical 87 mg-788 mg/g oint 60g [...] cognition Vitals Signs(Last 24 hrs)__Last Charted Minimum Maximum Heart Rate64(SEP 05 16:46)64(SEP 05 16:46)85(SEP 05 09:40) MYM430(SEP 05 16:36)138(SEP 05 16:36)H 158(SEP 05 09:52) [...] tolerated. Ambulate 15 feet with assist of 2people and front wheeled walker. Dependent with toilet hygiene. Substantial/maximal assist with sitto stand, chair to bed transfer. Dependent with toilet transfer. Two-person assist for stand pivot transfer from wheelchair to commode with heavy right upper extremity use on grab bar and blocking ofleft lower extremity throughout. Working with speech therapy [...] hemorrhage with dense left hemiparesis. Lethargy osteoarthritis dysphagiahypertension hyperlipidemia Plan: Continue acute dilatation physical occupational [...] assistance of voice recognition software. Phonic and/or minorgrammatical errors may exist. All medications reviewed and [...] HA DO on 09/06/2024 12:34 PM Tyler [id number] Hospital Discharge instructions Patient Education 09/05/2024 14:15:00 Hospital Discharge After a Stroke Hospital Discharge After a Stroke Being discharged from the hospital after a stroke can feel overwhelming. Many things may be different, and it is normal to feel scared or anxious. Some stroke survivors may be able to return to theirhomes, and others may need more specialized care [...] depending on your insurance coverage. Check with [employer] company about what is covered. Keeping follow-up visits After a stroke, you will need to follow up regularly with a health care provider. You may also needrehabilitation, which can include physical therapy, occupational therapy, or speech-language therapy. Keeping these appointments is very important to your recovery after a stroke. Be sure to bring yourmedicine list and discharge papers with you to your appointments. If you need help to keep track ofyour schedule, use a calendar or appointment reminder. [...] speaking, slurred speech, or trouble understanding what peoplesay. T - Time. Time to call emergency [...] first symptoms. Your emergency responders or emergency roomstaff will need to know this information. Summary [...] 08/04/2017 Document Revised: 05/04/2018 Document Reviewed: 08/04/2017 [employer] Patient Education 2020 [employer]. Follow Up Care 08/15/2024 08:51:25 With:RIMMA POWERS MD Address: [facility] ([address], [place]) When:10/08/2024 16:00:00 Comments:Neurosurgeon With:JONNIE BANSAL MD Address: [facility] When: Unknown Comments:GI, No appointment needed until PEG is ready to be removed or concerns arise With:KAMERON CARUSO MD Address: [address] [place] [address]- When:3-7 days Comments:Please schedule follow up PCP appointment for after discharge from SNF, Bring discharge instructions with you Tyler Tariqwn 04-24-2025 Note Subjective Patient seen this morning up in wheelchair. currently at the bedside. He reports that patient was "impossible to wake up this morning ". Reports that therapy had difficulty getting her up anddressed this morning. She is seen this morning sitting in her wheelchair, keeps eyes closed during exam. Brief one-word answers when asked questions. I did discuss the potential initiation of Ritalin, was agreeable to this. He reports appetite fluctuates. She does well at breakfast, but haslimited intake the rest of the day. Blood [...] less than 3 seconds. Ongoing hemiparesis VITALS AxgwheCgknDGRwmtkHAPeP3LXR6XkbmMi(kg) 09/05 09:5236.3--936822QS 09/05 09:40----85----RA 09/04 23:3236.6--103406AU 09/04 21:2436.5--209243HA 09/04 16:01----71----RA 24 Hr Tmax: 36.6 at [...] tab(s), PEG, Daily, 08/15/24 17:09:00 EDT balsam Kihei-castor oil topical (Venelex 788 mg-87 mg/g topical [...] 100 units/mL subcutaneous solution) Start: 08/23/24 12:00:00 EDT,Give 0-6 units/dose, Subcutaneous, TIDAC, 0, 08/23/24 8:27:00 [...] = 12.5 gram(s), = 25 mL, IV Push,AsDirected, PRN, Hypoglycemia, if unresponsive WITH IV ACCESS [...] 08/15/24 17:18:00 EDT, Dose = 17 gram(s), =15 mL, PEG, qDay, PRN, Constipation, 08/15/24 17:18:00 EDT One Time Meds: None Active IV Meds: None Problems (6) CVA (cerebral vascular accident) (898189129) Diabetes mellitus (670888428) Dysphagia (98421183) Hyperlipidemia (97619915) Hypertension (0450537682) Osteoarthritis (6772370818) ASSESSMENT/PLAN: Right basal ganglia hemorrhage, status post thrombectomy with revascularization follow-up appointment with neurosurgery on 10/08. Continue work with physical and Occupational Therapy with goal to return home at discharge. reports that referrals have been sent to prison facilities yesterday. Currently has 4 options in [...] the services described in this documentation, as Destiny qiu RN in my presence and it is both accurate and complete. Digitally Signed by CATHERINE NEWMAN APRN-GARRETT on 09/05/2024 04:55 PM Tyler [id number] Physical medicine and rehab Progress note Subjective Patient not really offering a whole lot of information, states that she is just very tired. Both patient and state the patient slept well last night. states that she tried her best working with therapy yesterday but she is still not where she was last week. Patient denies having anypain. She tells me her breathing is fine. [...] area Neuro: Left upper extremity hemiparesis VITALS OctkpuWnsvMHKhhwcXOToH9XRO5TvzyCv(kg) 09/04 23:3236.6--628132BM 09/04 21:2436.5--127192SE 04/23 16:01----72----RA 09/04 12:10--------97RA 09/04 10:5435.9--913636IH 24 Hr Tmax: 36.6 at 09/04 23:32 [...] tab(s), PEG, Daily, 08/15/24 17:09:00 EDT balsam Kihei-castor oil topical (Venelex 788 mg-87 mg/g topical [...] 100 units/mL subcutaneous solution) Start: 08/23/24 12:00:00 EDT,Give 0-6 units/dose, Subcutaneous, TIDAC, 0, 08/23/24 8:27:00 [...] SBP (mmHg) < 110, 1st dose location: [facility], 1, 08/15/24 17:09:00 EDT Active PRN [...] 2 minutes, REPEAT x1., 1st dose location: [facility], 0, 08/15/24 1... glucose (Dextrose 50% IV Push) Start: 08/15/24 17:18:00 EDT, Dose = 12.5 gram(s), = 25 mL, IV Push,AsDirected, PRN, Hypoglycemia, if unresponsive WITH IV ACCESS [...] 08/15/24 17:18:00 EDT, Dose = 17 gram(s), =15 mL, PEG, qDay, PRN, Constipation, 08/15/24 17:18:00 EDT One Time Meds: None Active IV Meds: None Problems (6) CVA (cerebral vascular accident) (135049337) Diabetes mellitus (387663320) Dysphagia (86785182) Hyperlipidemia (03818057) Hypertension (2919922085) Osteoarthritis (4239516635) ASSESSMENT/PLAN: Acute right basal ganglia hemorrhage with [...] Heart rates are stable with no cardiaccomplaints. Dysphagia, did fail MBS during hospitalization with [...] evidence of new bleed tolerating this point theEliquis therapy Lisinopril discontinued due to hypotension, monitor [...] NANDO HUTTON DO on 09/05/2024 10:12 AM [facility] Physical medicine and rehab Progress note Rehab [...] disease, diabetes mellitus type 2, atrial relation, hype rtension, osteoarthritis, and hyperlipidemia who presented to the emergency room with noted left-sided weakness and slurred speech. She originally presented to [facility] with CT of the head was obtained showed no acute hemorrhage or large territory stroke. CTA showed mid right M1 occlusion however patient was not a TNK candidate. She was then transferred to a [facility] for further management. CT of head [...] ganglia and surrounding edema, mass effect with effacementof right lateral ventricle and midline shift to [...] 80 mg, 1 tab(s), PEG, Daily. balsam Kihei-castor oil topical: 1 dahlia, Topical, qHS. docusate: [...] Signs Vitals Signs(Last 24 hrs)__Last Charted Minimum Maximum Heart Rate64(SEP 03 15:52)64(SEP 03 15:52)90(SEP 03 08:28) PSA766(SEP 04 05:38)112(SEP 04 05:38)127(SEP 03 08:00) DBP70(SEP [...] physical occupational and speech therapy services. NPO. Swallowtest tomorrow. Case discussed with spouse. Lisinopril discontinued.. Increase free water flush 250 cc 6 times a day. Labs noted. Probable transition to skilled for ongoing skilled therapy services PTOT and speech with long-term goal of home with spouse with decreased burden of care. Risks/benefits of meds, treatments considered. Therapy notes reviewed. Discussed with staff. PMH/SH reviewed and unchanged Medications are reviewed and up-to-date This document was transcribed using dictation software and may contain typographical errors. Destiny Roe RN, am scribing for , and in the presence of Dr. Dae PALMER. I, Dr. Dae PALMER, personally performed the services described in this documentation, as scribed by, Destiny Santiago RN in my presence and it is both accurate and complete. Digitally Signed by SILVINO HA DO on 09/04/2024 11:55 AM [facility] GarciaAkvjecjt22-15-5246 Note Subjective Patient states she is doing [...] area Neuro: Left upper extremity hemiparesis VITALS WskqvkHmujMCRmiaxOIJeN6ONY7QtszNj(kg) 09/03 21:4136.4--979173PZ 09/03 15:52----64---- 09/03 08:46 09/03 08:28----90---- 09/03 08:0036.4--426936EM 24 Hr Tmax: 36.4 at 09/03 21:41 [...] 100 units/mL subcutaneous solution) Start: 08/23/24 12:00:00 EDT,Give 0-6 units/dose, Subcutaneous, TIDAC, 0, 08/23/24 8:27:00 [...] SBP (mmHg) < 110, 1st dose location: [facility], , 08/15/24 17:09:00 EDT oxybutynin (oxybutynin [...] 2 minutes, REPEAT x1., 1st dose location: [facility], 0, 08/15/24 1... glucose (Dextrose 50% IV Push) Start: 08/15/24 17:18:00 EDT, Dose = 12.5 gram(s), = 25 mL, IV Push,AsDirected, PRN, Hypoglycemia, if unresponsive WITH IV ACCESS [...] 08/15/24 17:18:00 EDT, Dose = 17 gram(s), =15 mL, PEG, qDay, PRN, Constipation, 08/15/24 17:18:00 EDT One Time Meds: None Active IV Meds: None Problems (6) CVA (cerebral vascular accident) ([id number]) Diabetes mellitus (271799147) Dysphagia (05648807) Hyperlipidemia (70393016) Hypertension (7274993517) Osteoarthritis (5696099446) ASSESSMENT/PLAN: Acute right basal ganglia hemorrhage with [...] Heart rates are stable with no cardiaccomplaints. Dysphagia, did fail MBS during hospitalization with [...] very close follow-up on her cognition given somecognitive impairment post CVA Episode of grogginess with fatigue 09/02, repeat CT head was obtained showing evolving right basal ganglia hemorrhage, small vessel ischemic disease, no evidence of new bleed tolerating this point theEliquis therapy Lisinopril discontinued due to hypotension, monitor [...] HUTTON DO on 09/05/2024 08:57 AM [facility] GarciaDxmuwvuq97-55-5654 Note Subjective Patient states that she is feeling okay today. She denies having any pain. Denies headache. Patientreally not offering a whole lot of information. [...] area Neuro: Left upper extremity hemiparesis VITALS YyyoygRxfnNVSyprbPBBwK2QRD2QgsiUo(kg) 09/03 00:2636.3--751484DO 09/02 21:5136.2--250582VH 09/02 16:56----88--98RA 09/02 10:40 RA 09/02 09:0936.0--557767BF 24 Hr Tmax: 37.0 at 09/02 05:55 [...] tab(s), PEG, Daily, 08/15/24 17:09:00 EDT balsam Kihei-castor oil topical (Venelex 788 mg-87 mg/g topical [...] 100 units/mL subcutaneous solution) Start: 08/23/24 12:00:00 EDT,Give 0-6 units/dose, Subcutaneous, TIDAC, 0, 08/23/24 8:27:00 [...] = 12.5 gram(s), = 25 mL, IV Push,AsDirected, PRN, Hypoglycemia, if unresponsive WITH IV ACCESS [...] 08/15/24 17:18:00 EDT, Dose = 17 gram(s), =15 mL, PEG, qDay, PRN, Constipation, 08/15/24 17:18:00 EDT One Time Meds: None Active IV Meds: None Problems (6) CVA (cerebral vascular accident) ([id number]) Diabetes mellitus (050841635) Dysphagia (82670323) Hyperlipidemia (29681468) Hypertension (0617454404) Osteoarthritis (9021308348) ASSESSMENT/PLAN: Acute right basal ganglia hemorrhage with [...] Heart rates are stable with no cardiaccomplaints. Dysphagia, did fail MBS during hospitalization with [...] recent change in tube feeding orders. Accuchecks inplace 3 times a day with sliding scale insulin. Recent hemoglobin A1c at 8.4%. Monitoring blood suga rs closely. Follow-up with neurosurgery 10/08 Philippe Roberts [...] very close follow-up on her cognition given somecognitive impairment post CVA Episode of grogginess with [...] NANDO HUTTON DO on 09/05/2024 08:57 AM [facility]* Exam Date Time Procedure Performing Provider Status 09/02/24 2:[address] Head or Brain w/o Contrast Brenda MCCLELLAN MD; Auth (Verified) [id number] ORIGINAL HISTORY: Lethargy COMPARISON: No TECHNIQUE: Routine [...] 09/02/2024 3:10:44 PM Ordering Provider: SILVINO Scott [id number] Telephone encounter Note* Telephone Encounter - Fouzia Miller LPN - 08/30/2024 10:09 AM EDT Marya with [facility] notified. [facility]04-18-2025 Miscellaneous Notes* Telephone Encounter - Fouzia Miller LPN - 08/30/2024 10:09 AM EDT Marya with [facility] notified. * Telephone Encounter - Mj Glover APRN.CNP - 08/30/2024 9:19 AM EDT Please let know that Dr. Caruso's team will follow orders. Okay to proceed. Mj Glover APRN.GARRETT * Telephone Encounter - Jaiden Paulino RN - 08/30/2024 9:07 AM EDT Marya- [facility] reports patient was in [facility] with dx: stroke, and transferred to [facility]. Pt will be discharged from [facility] on 09/07/24 to home with [facility] SN PT OT ST & [facility]ide. Asking if pcp agreeable to follow for HHC. Please phone Marya with verbal: [phone] documented in [facility] Telephone encounter Note * Telephone Encounter - Mj Glover APRN.CNP - 08/30/2024 9:19 AM EDT Please let HH know that Dr. Caruso's team will follow HH orders. Okay to proceed. Mj Glover APRN.CNP [facility]04-18-2025 Telephone encounter Note* Telephone Encounter - Jaiden Paulino RN - 08/30/2024 9:07 AM EDT Marya- [facility] reports patient was in [facility] with dx: stroke, and transferred to [facility]. Pt will be discharged from [facility] on 09/07/24 to home with [facility] SN PT OT ST & [facility]HAide. Asking if pcp agreeable to follow for HHC. Please phone Marya with verbal: [phone] [facility]04-14-2025 Note REFERRING PHYSICIAN: Silvino Ha DO. CONSULTING PSYCHOLOGIST: Matthew Gibson, PhD. REASON FOR REFERRAL: Neuropsychological exam. HISTORY OF PRESENT ILLNESS: Ms. Acuna is a 78-year-old right-handed white female admitted to [facility] from [facility] on 08/15/2024 after developing left-sided weakness and slurred speech. Initially seen at [facility] where brain CT was negative.CTA then [...] mild concussions suffered after a career in [employer]. No residual deficits reported. 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 MENTAL HEALTH HISTORY: [...] of NPO. and Mrs. Acuna live in [place]. 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 She has a high school diploma from her hometown in [place], [place]. TEST RESULTS: I used the Cognistat, [...] Alzheimer's to be determined. MATTHEW GIBSON, PhD LESLIE/SHANNON JOB#: [id number] DICTATION ID#: [id number] Digitally Signed by MATTHEW GIBSON PhD on 08/27/2024 08:21 AM [facility]Qicfhdhv88-39-1344 Note* Exam Date Time Procedure Performing Provider Status 08/25/24 1:46 PM XR Hand and Wrist 6 Views Left Buck DUNNE ; Auth (Verified) [id number] ORIGINAL EXAMINATION: 3 XRAY VIEWS OF THE [...] 08/25/2024 2:27:26 PM Ordering Provider: JACKLYN LINDSEY [address]13-2025 Note* Exam Date Time Procedure Performing Provider Status 08/25/24 1:45 PM XR Shoulder Minimum 2 Views Left JAMAR DUNNE DO; Auth (Verified) [id number] ORIGINAL EXAMINATION: TWO XRAY VIEWS OF THE [...] PM XR Humerus Minimum 2 Views Left ROSANNE JAMAR W ; Auth (Verified) [id number] ORIGINAL EXAMINATION: TWO XRAY VIEWS OF THE [...] Date: 08/25/2024 2:26:11 PM Ordering Provider: JACKLYN Scott [id number] Note* Exam Date Time Procedure Performing Provider Status 08/18/24 3:08 PM XR Chest 1 View Contributor_system, FUJ I; Auth (Verified) [id number] ORIGINAL EXAMINATION: ONE XRAY VIEW OF THE [...] Plan noteExtracted from: Title:Clinical Document Author:EZEQUIEL HUSTON RN-SPEECH THERAPIST Date:08/16/24 Acute Inpatient Rehab Histor y and Physical Date of Service: 08/16/2024 Date of Admission: 08/15/2024 Attending Physician: Dr. Ha [employer]air[employer] 1.1 left body involvement, right brain stroke Etiologic Diagnosis Hemorrhagic infarct involving right basal ganglia, mass effect with effacement of right lateral ventricle, tiny infarct in right cerebellum History of Present Illness 78-year-old female noted to home in inpatient rehab from [facility] stay 08/02 - 08/15 who is past medical history of coronary artery disease, diabetes mellitus type 2, atrial relation, hypertension, osteoarthritis, and hyperlipidemia who presented to the emergency room with noted left-sided weakness and slurred speech. She originally presented to [facility] with CT of the head was obtained showed no acute hemorrhage or large territory stroke. CTA showed mid right M1 occlusion however patient was not a TNK candidate. She was then transferred to a [facility] for further management. CT of head [...] feedings. Patient deemed medically stable transferred to [facility] for physical and occupational [...] with spouse, first- floor set up. Primary Registered Associate: Self. Safe place to go: Yes. Lives [...] Rate80(AUG 15 20:06)80(AUG 15 20:06)80(AUG 15 20:06) AAZ191(AUG 16 00:03)128(AUG 16 00:03)140(AUG 15 17:47) DBP76(AUG 16 00:03)76(AUG 16 00:03)80(AUG 15 17:47) 36hr Labs 08/15 1805 Blood Glucose, Gvffhdxec839D Blood Glucose, Cqsijppnf895P Blood Glucose TSee Flowsheet Assessment/Plan Debility and [...] services described in this documentation, as scribed byAnjelica RN in my presence and it is both accurate and complete. [facility] 04-04-2025 Physical medicine and rehab Consult note INPATIENT REHAB MEDICAL CONSULT DATE OF ADMISSION: 08/16/2024 CC: Acute right basal hemorrhage HISTORY OF PRESENT ILLNESS: This is a 78-year-old female admitted to [facility] unit from [facility] stay 08/02 - 08/15 who has a history of CAD, DM2, atrial fibrillation and hypertension who presented to the ER after notingleft-sided weakness and slurred speech. Originally presented to [facility] where CT head was obtained showing [...] was deemed medically stable and transferred to [facility] for physical and occasional [...] Rate80(AUG 15 20:06)80(AUG 15 20:06)80(AUG 15 20:06) AMF166(AUG 16 00:03)128(AUG 16 00:03)140(AUG 15 17:47) DBP76(AUG [...] Hospital labs and diagnostics reviewed. 36hr Labs / 1805 Blood Glucose, Kwdpavcha123S Blood Glucose, Dlpxwyweb687T Blood Glucose TSee Flowsheet ASSESSMENT AND PLAN: [...] during acute rehabilitation stay at [facility] with the goal of [...] CATHERINE NEWMAN on 08/17/2024 04:53 PM [facility] [id number] Physical medicine and rehab History and physical [...] noted to home in inpatient rehab from [facility] stay 08/02 -08/15 who is past medical history of coronary artery disease, diabetes mellitus type 2, atrial relation, hypertension, osteoarthritis, and hyperlipidemia who presented to the emergency room with noted left-sided weakness and slurred speech. She originally presented to [facility] with CT of the head was obtained showed no acute hemorrhage or large territory stroke. CTA showed mid right M1 occlusion however patient was not a TNK candidate. [facility] showed [...] feedings. Patient deemed medically stable transferred to [facility] for physical and occupational [...] with spouse, first- floor set up. Primary Registered Associate: Self. Safe place to go: Yes. Lives [...] Rate80(AUG 15 20:06)80(AUG 15 20:06)80(AUG 15 20:06) UZY192(AUG 16 00:03)128(AUG 16 00:03)140(AUG 15 17:47) DBP76(AUG 16 00:03)76(AUG 16 00:03)80(AUG 15 17:47) 36hr Labs 08/15 1805 Blood Glucose, Jmcuzltjp143H Blood Glucose, Lxzbuualf888Y Blood Glucose TSee Flowsheet Assessment/Plan Debility and [...] by EZEQUIEL HUSTON on 08/22/2024 05:17 AM [facility]dqucwgm32-83-1430 Miscellaneous Notes* Nursing Notes - Robson Steel [...] pacing over x3-5 sessions Outcome: Ongoing Problem: ACCOUNT RESOLUTION EXPERT - Cognition Goal: Orientation Log - Patient [...] pacing over x3-5 sessions Outcome: Ongoing Problem: ACCOUNT RESOLUTION EXPERT - Cognition Goal: Orientation Log - 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 - If used regional intermodal 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, initial PEG should be changed in 6-12 months depending on tube condition. - No plans for repeat outpatient EGD at this time based on clinical status Jonnie Mccabe MD Division of Gastroenterology, Hepatology, and Nutrition Clinical Fellow PGY-4 Pager: [phone] * Plan of Care - Manisha Cheema [...] what the specific medication was. Daughter, Keagan [phone] would be able to answer questions. Catherine [...] 08/07/2024 5:00 PM EDT On admission to [facility], from another [facility] inpatient unit a [...] oropharyngeal swallow function to most appropriately guide ACCOUNT RESOLUTION EXPERT plan of care Outcome: Met Goal: Bolus [...] readiness for diet advancement Outcome: Met Problem: ACCOUNT RESOLUTION EXPERT - Cognition Goal: Orientation Log - Patient [...] better assess deficits and most appropriately guide ACCOUNT RESOLUTION EXPERT plan of care Outcome: Met Goal: Attention: [...] of Care: 1. Diet: NPO. Advancement per team/ACCOUNT RESOLUTION EXPERT recommendation 2. Ordered TF: Glucerna 1.5 @ [...] readiness for diet advancement Outcome: Ongoing Problem: ACCOUNT RESOLUTION EXPERT - Cognition Goal: Orientation Log - Patient [...] better assess deficits and most appropriately guide ACCOUNT RESOLUTION EXPERT plan of care Outcome: Ongoing * Nursing Notes - Aniyah Torre RN - 08/02/2024 6:13 PM EDT On admission to [facility], from [place] a dual RN initial assessment of skin condition was performed by Aniyah Torre RN and Amirah ENRIQUEZ. Skin Assessment: Skin not within defined limits. - Pressure Injury suspected: Yes - Coccyx LDA Added:Yes Aniyah Torre RN * Nursing Notes - Sophie Jenkins RN - 08/02/2024 5:32 PM EDT Report given to TUSHAR OsborneU ZOE whom denies any questions. No change from previous assessment. Pt transferred to [facility] cart accompanied by Denae ENRIQUEZ. T [...] under emergency consent. SURGEON(S): Prema Ramos MD MORTARMAN(S): None ANESTHESIA: Monitored anesthesia care DESCRIPTION OF [...] - 08/02/2024 3:26 PM EDT Lindsay Acuna ([id number]) PRE OPERATIVE DIAGNOSIS Cerebral infarction due to [...] - Primary ANESTHESIOLOGIST Anesthesiologist: Tameka Ruth MD MATTE CUTTER: Bebo Barboza APRN-MATTE CUTTER SURGICAL STAFF Toy Stuffer: Rachell Ruffin RN Associate Account Executive: Paulina Muñiz; Radha Morales COMPLICATIONS None ESTIMATED BLOOD LOSS Minimal SPECIMENS No specimen sent * No specimens in log * Prema Ramos MD August 02, 2024 3:26 PM [facility] History of Present illness Narrative* OWEN Benavides - 08/15/2024 9:01 AM EDT Care Management Discharge Note Selected Continued Care - Admitted Since 08/02/2024 Destination Coordination complete. Service Provider Services Address Phone Fax Patient Preferred [place] [phone] -- -- Internal Comment last updated by OWEN Benavides 08/15/2024 0901 Report fax: [phone] Transport Request Mode of Transfer: [facility] Name of Discharge Transport Company: [email or web address] Discharge Transport ETA: 08/15/2024 @ 1030 Patient medically stable for discharge per physician/medical team. Pt has neurology appointment scheduled. Pt/ to schedule appointment with PCP. Patient/Teacher Asst remain in agreement withthe discharge plan. BULMARO Allen Senior Mechanical Designer * OWEN Benavides - 08/14/2024 3:17 PM [...] numbersfor RN report tomorrow morning. BULMARO Allen Senior Mechanical Designer * Marybeth Ayoub - 08/14/2024 2:51 PM EDT Care Management Progress Note Transportation for discharge arranged Mode of Transfer: (P) BLS Name of Discharge Transport Company: (P) [employer] Discharge Transport ETA: (P) 08/15/2024 @ 1030 Pick-up from [facility] 1032/A Destination [facility] [address] [facility] [place] [address] OWEN Morrell Senior Mechanical Designer [employer] [phone] * Jazzy Aguiar - 08/14/2024 9:47 AM [...] position Mobility Assessment/Intervention: Supine to Sit Mobility [place] Level: Supine->Sit: moderate assist (50% patient effort) Physical Assist: Supine->Sit: 2 person assist Bed Features/Set-up: Supine->Sit: Head of bed elevated, Use of bed rail Skilled Rationale: Verbal cues, Tactile cues, Hand placement, Positioning, Technique of activity Skilled Intervention/Details: Supine->Sit: Cues for technique of transfer and pt needing increased assistance for managing legs and trunk to EOB positioning Transfer Assessment/Intervention: Sit to Stand Transfer [place] Level: Sit->Stand: moderate assist (50% patient effort) [...] hand held support Stand to Sit Transfer [place] Level: Stand->Sit: moderate assist (50% patient effort) Physical Assist: Stand->Sit: 2 person assist Assistive Device: Stand->Sit: gait belt, hand held assist Skilled Rationale: Verbal cues, Tactile cues, Hand placement, Positioning, Controlled descent for sitting Skilled Intervention/Details: Stand->Sit: Cues for positioning with BSC and recliner, pt provided bilat hand held support and needing increased support for managing a controlled descent Bed-Chair Transfer [place] Level: Bed<->Chair: maximum assist (25% patient effort) [...] managing L side during transfer Toilet Transfer [place] Level: Toilet: moderate assist (50% patient effort) [...] upright gaze when standing Outcome Score(s): CURRENT [facility] Daily Activity Inpatient Short Form Putting on/Taking Off Lower Body Clothin - Total Assistance Bathin - A Lot of Assistance Toiletin - Total Assistance Putting on/Taking Off Upper Body Clothin - A Little Assistance Groomin - A Little Assistance Eatin - Total Assistance CURRENT [facility] Activity Raw Score: 11 CURRENT [facility] Activity Functional Limitation/Modifier: 70.42% Currently Impaired [...] current Occupational Therapy Discharge Summary. Cosigned by eTagan Cronin OT at 08/14/2024 11:33 AM EDT [...] person, Oriented to place, Oriented to situation ("[place]" "hospital" "May" "2024" "stroke") Following Commands: Follows [...] blocking Mobility Assessment/Intervention: Supine to Sit Mobility [place] Level: Supine->Sit: moderate assist (50% patient effort) [...] sitting) Transfer Assessment/Intervention: Sit to Stand Transfer [place] Level: Sit->Stand: moderate assist (50% patient effort) Physical Assist: Sit->Stand: 2 person assist Assistive Device: Sit->Stand: gait belt Skilled Rationale: Arm in arm, Patellar block, Ischial assist, Facilitate anterior shift, Full extension to upright positioning/posture, Finding/maintaining midline positioning Skilled Intervention/Details: Sit->Stand: repeat cues to avoid significant L lean with improvement last standing. x1 from EOB, x2 from BSC Stand to Sit Transfer [place] Level: Stand->Sit: moderate assist (50% patient effort) Physical Assist: Stand->Sit: 2 person assist Assistive Device: Stand->Sit: gait belt Skilled Rationale: Arm in arm, Controlled descent for sitting Skilled Intervention/Details: Stand->Sit: last trial assisted R hand to recliner arm rest and ongoing cues for wt shift to R Bed-Chair Transfer [place] Level: Bed<->Chair: maximum assist (25% patient effort) [...] Mobility Assessment/Intervention: Stairs Assessment/Intervention: Outcome Score(s): CURRENT [facility] Basic Mobility Inpatient Short Form Turning [...] with a railin - Total Assistance CURRENT [facility] Mobility Raw Score: 8 CURRENT [facility] Mobility Functional Limitation: 86.62% Impaired in Basic Mobility Interventions: Intervention 1 Intervention Name: [facility] supine and sitting Details: education [...] PT Goals Plan of Care by Prema Rosales, PT at 08/14/2024 9:15 AM Version 1 [...] 10 Treating Therapist: Shaina Rosales PT, DPT [id number] 08/14/2024 Additional Details: PT Co-Eval/Treatment Information Co-evaluation/co-treatment [...] Physical Therapy Discharge Summary. * Tanja Cason, RIKI - 08/14/2024 8:37 AM EDT Acute Care [...] on the below outcome measures/assessment score(s) and ACCOUNT RESOLUTION EXPERT clinicaljudgment, discharge destination recommendation is: [facility] Barriers to discharge home: 1:1 assist needed for IADL's including medication management and finances Supporting factors for discharge setting: Impaired swallow function limiting nutritional status andsafety with oral intake, Impaired cognitive skills limiting safety/insight Acute ACCOUNT RESOLUTION EXPERT Outcomes Tracking Communicate basic wants and needs?: [...] independent carry over. Strong family support. Ongoing ACCOUNT RESOLUTION EXPERT s indicated. Subjective information: Alert, present. SO referenced his notes from yesterday and reportedcarry over of exercises yesterday. Patient with zero recall Pain: Nonverbal indicator not present Precautions: Patient Safety Communication Prior to Visit: Nursing Lines/Tubes/Drains (Rehab Status): Telemetry, Tube feed Existing Precautions/Restrictions: fall Respiratory Status: O2 Sat (%): 96 % (08/14 0711) O2 Device: room air (08/14 0947) Acute ACCOUNT RESOLUTION EXPERT Goals Plan of Care by Tanja Cason ACCOUNT RESOLUTION EXPERT at 08/14/2024 2:42 PM Version 1 of [...] RoM to achieve technique. Outcome: Ongoing Problem: ACCOUNT RESOLUTION EXPERT - Cognition Goal: Orientation Log - Patient [...] next session: 08/14 - ongoing exercises, education ACCOUNT RESOLUTION EXPERT Outcomes: FOIS 2 Speech Language Pathologist: RIKI [...] of session: none altered Needs in reach. ACCOUNT RESOLUTION EXPERT Evaluation and Treatment Time Speech Therapy - Individual 38782: 14 Swallowing Dysfunction Treatment 92467: 14 Upon discontinuation of Acute Care Speech [...] on the below outcome measures/assessment score(s) and ACCOUNT RESOLUTION EXPERT clinicaljudgment, discharge destination recommendation is: Inpatient Rehab Facility Barriers to discharge home: 1:1 assist needed for IADL's including medication management and finances Supporting factors for discharge setting: Impaired swallow function limiting nutritional status andsafety with oral intake, Impaired cognitive skills limiting safety/insight Acute ACCOUNT RESOLUTION EXPERT Outcomes Tracking Communicate basic wants and needs?: [...] O2 Device: room air (08/13 710) Acute ACCOUNT RESOLUTION EXPERT Goals Plan of Care by Tanja Cason ACCOUNT RESOLUTION EXPERT at 08/13/2024 11:10 AM Version 1 of [...] 10 reps this session. Outcome: Ongoing Problem: ACCOUNT RESOLUTION EXPERT - Cognition Goal: Orientation Log - Patient [...] considerations: Cognition Patient Instruction/Education comments: Role of ACCOUNT RESOLUTION EXPERT, presence and normalized frustration with cognitive-communicative impairments. Focused on memory this date and that patient does not recall education so perseverative questions are normal. Reviewed intermittent silent aspiration from MBS last weekand ongoing signs of dysphagia this session, will plan to coordinate timing for repeat instrumentalwith care team Plan for next session: 08/13 -fair ACCOUNT RESOLUTION EXPERT Outcomes: FOIS 2 Speech Language Pathologist: RIKI [...] of session: none altered Needs in reach. ACCOUNT RESOLUTION EXPERT Evaluation and Treatment Time Speech Therapy - Individual 36046: 12 Swallowing Dysfunction Treatment 50930: 13 Upon discontinuation of Acute Care Speech Therapy Services or patient discharge from the hospital this note represents the current Speech Therapy Discharge Summary * OWEN Benavides - 08/12/2024 3:21 PM EDT Placement Plan Expected Discharge Date: 08/14/2024 Referred Level of Care: IPR Barriers: Medical Readiness & Precertification Current Referrals and Status 1. [facility]accept[facility] started precertification today. BULMARO Allen Senior Mechanical Designer * Jazzy Aguiar - 08/12/2024 10:46 AM [...] sinkside Mobility Assessment/Intervention: Supine to Sit Mobility [place] Level: Supine->Sit: moderate assist (50% patient effort) [...] positioning Transfer Assessment/Intervention: Sit to Stand Transfer [place] Level: Sit->Stand: maximum assist (25% patient effort) [...] maintaining upright posture Stand to Sit Transfer [place] Level: Stand->Sit: maximum assist (25% patient effort) Physical Assist: Stand->Sit: 2 person assist Assistive Device: Stand->Sit: gait belt, hand held assist Skilled Rationale: Verbal cues, Tactile cues, Hand placement, Positioning, Controlled descent for sitting Skilled Intervention/Details: Stand->Sit: Cues for positioning with recliner and using BUEs to help with appropriate positoining of hips in chair Bed-Chair Transfer [place] Level: Bed<->Chair: maximum assist (25% patient effort) Physical Assist: Bed<->Chair: 2 person assist Assistive Device: Bed<->Chair: gait belt Skilled Rationale: Verbal cues, Tactile cues, Hand placement, Positioning, Technique of activity Skilled Intervention/Details: Bed<->Chair: x1 from EOB to recliner on R. Pt needing increasedsupport for managing L side and sequencing steps for appropriate positioning with recliner Outcome Score(s): CURRENT [facility] Daily Activity Inpatient Short Form Putting on/Taking Off Lower Body Clothin - Total Assistance Bathin - A Lot of Assistance Toiletin - Total Assistance Putting on/Taking Off Upper Body Clothin - A Lot of Assistance Groomin - A Lot of Assistance Eatin - Total Assistance CURRENT [facility] Activity Raw Score: 9 CURRENT [facility] Activity Functional Limitation/Modifier: 79.59% Currently Impaired [...] speech and L hemiplegia. She presented to [facility] and was seen on Telestroke, NIHSS [...] goal TF volume. Pt last assessed by ACCOUNT RESOLUTION EXPERT 08/08 with recommendations for NPO. S/p PEG [...] chips. Will also increase free water flushes. ACCOUNT RESOLUTION EXPERT to see pt tomorrow. Nutrition Focused Physical Exam: Nutrition Focused Physical Exam Completed?: completed Subcutaneous Fat Loss: Orbital Region (Orbital Fat Pads): WDL Cheek Region (Buccal Fat Pads): WDL Upper Arm Region (Triceps): WDL Thoracic and Lumbar Region (Ribs, Lower Back, Midaxillary Line): WDL Muscle Wasting: Mandaen Region (Temporalis Muscle): deferred (lac over eyebrow) [...] kg (172 lb) 06/26/24 78.9 kg (174 lb)-[facility] 05/31/24 79 kg (174 lb 2.6 oz)-[facility] 11/28/23 80.6 kg (177 lb 9.6 oz)-[facility] 09/29/23 84 kg (185 lb)-[facility] meds reviewed: Scheduled: Reviewed, includes insulin, Synthroid, [...] Needs: Weight Used: 61 kg (IBW) EEN: 9912-4437 kcal/day (25-30 kcal/kg) EPN: 73-92 g/day (1.2-1.5 g/kg) EFN: 1830 mL/day (30 mL/kg) or per primary team Malnutrition Statement: Does the patient meet criteria for malnutrition: No *Based on [employer] Academy and ASPEN Indicators to Diagnose Malnutrition (AAIM) criteria (2012) Tianna Murray RD, LD, [facility] Pager #[phone] * Katie Ramos, PT - 08/12/2024 10:22 [...] standing. Mobility Assessment/Intervention: Supine to Sit Mobility [place] Level: Supine->Sit: moderate assist (50% patient effort) Physical Assist: Supine->Sit: 2 person assist Bed Features/Set-up: Supine->Sit: Head of bed elevated Skilled Rationale: Verbal cues, Tactile cues, Hand placement, Technique of activity Skilled Intervention/Details: Supine->Sit: verbal/tactile cues for instruction on transfer technique and mod A x 2 for LE and trunk management. Transfer Assessment/Intervention: Sit to Stand Transfer [place] Level: Sit->Stand: maximum assist (25% patient effort) Physical Assist: Sit->Stand: 2 person assist Assistive Device: Sit->Stand: gait belt Skilled Rationale: Verbal cues, Tactile cues, Hand placement, Technique of activity Skilled Intervention/Details: Sit->Stand: x2 trials with verbal/tactile cues for instruction on transfer technique, hand placement, and blocking left knee. Bed-Chair Transfer [place] Level: Bed<->Chair: maximum assist (25% patient effort) Physical Assist: Bed<->Chair: 2 person assist Assistive Device: Bed<->Chair: gait belt Skilled Rationale: Verbal cues, Tactile cues, Hand placement, Technique of activity Skilled Intervention/Details: Bed<->Chair: x1 trial from EOB to chair to the right. Verbal/tactile cues for instruction on transfer technqiue, blocking left knee. Outcome Score(s): CURRENT [facility] Basic Mobility Inpatient Short Form Turning over in bed: 2 - A Lot of Assistance Moving from lying on back to sittin - Total Assistance Moving to and from bed to chair: 1 - Total Assistance Sitting/standing from chair: 1 - Total Assistance Walk in hospital room: 1 - Total Assistance Climbing 3-5 steps with a railin - Total Assistance CURRENT [facility] Mobility Raw Score: 7 CURRENT [facility] Mobility Functional Limitation: 92.36% Impaired in Basic Mobility Interventions: Intervention 1 Intervention Name: [facility] LLE therapeutic exercises to promote LE strengthening [...] PT Goals Plan of Care by Katie Ramos, PT at 08/12/2024 2:23 PM Version 1 [...] Physical Therapy Discharge Summary. * Radha Gr APRN-SPEECH THERAPIST - 08/11/2024 7:15 AM EDT NEUROVASCULAR STROKE SERVICE Daily Progress Note IDENTIFYING INFORMATION Lindsay Acuna MR# [id number] 08/11/2024 HISTORY OF PRESENT ILLNESS Lindsay Acuna is a 78 y.o. female with PMH significant for CAD, HTN, HLD, T2DM, Afib (on Eliquis, although patient reports she has not been taking it) who presents with L hemiplegia, slurred speech. LKW 0915 on 08/02, later found down with slurred speech and L hemiplegia. She presented to [facility] and was seen on Telestroke, NIHSS [...] 2b revascularization. INTERVAL HISTORY 08/05: [place] MBS tomorrow 08/06: Failed MBS. Increased lopressor. [...] (home dose), give mag , NPO at [place] for FABIAN PHYSICAL EXAM Gen: awake, alert [...] today 08/11 -Rate controlled on metoprolol Dysphagia: -ACCOUNT RESOLUTION EXPERT following -NPO, DHT + TF -Failed MBS [...] Lindsay Acuna will likely be discharged to [facility] when medically ready Radha Gr, MOSAIC TILER-SPEECH THERAPIST 08/11/2024 10:17 AM VITAL SIGNS Temp: [97.2 [...] for specific therapeutic recommendations, please see the post form remover report of the speech pathologist. Examination performed [...] and neurological examinations as recorded by the PRICING LEAD repeated and confirmed. I have personally reviewed [...] tooth. Blood cx unremarkable. * Radha Gr, MOSAIC TILER-SPEECH THERAPIST - 08/10/2024 7:14 AM EDT NEUROVASCULAR STROKE SERVICE Daily Progress Note IDENTIFYING INFORMATION Lindsay Acuna MR# [id number] 08/10/2024 HISTORY OF PRESENT ILLNESS Lindsay Acuna is a 78 y.o. female with PMH significant for CAD, HTN, HLD, T2DM, Afib (on Eliquis, although patient reports she has not been taking it) who presents with L hemiplegia, slurred speech. LKW 0915 on 08/02, later found down with slurred speech and L hemiplegia. She presented to [facility] and was seen on Telestroke, NIHSS [...] 2b revascularization. INTERVAL HISTORY 08/05: [place] MBS tomorrow 08/06: Failed MBS. Increased lopressor. [...] as above -Rate controlled on metoprolol Dysphagia: -ACCOUNT RESOLUTION EXPERT following -NPO, DHT + TF -Failed MBS [...] Lindsay Acuna will likely be discharged to [facility] when medically ready Radha Gr, MOSAIC TILER-SPEECH THERAPIST 08/10/2024 7:14 AM VITAL SIGNS Temp: [97.4 [...] for specific therapeutic recommendations, please see the post form remover report of the speech pathologist. Examination performed [...] skin and external bumper. 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 [facility]--> Internal Medicine--> Gastroenterology, Hepatology, & Nutrition--> IBD Consult Service Fel Day OR IBD Consult Service DAHLIA Day For urgent/stat calls or new consults 5pm to 7am or all day on the weekend, please page the on-callGI fellow on [employer]. [facility]--> Internal Medicine--> Gastroenterology, Hepatology, & Nutrition--> 1st Call Fel Miriam OR STAT/NEW GI Cons Wknd Day Cosigned by Niru Koch MD at 08/10/2024 2:11 PM EDT * OWEN Benavides - 08/09/2024 3:34 PM EDT Placement Plan Expected Discharge Date: Referred Level of Care: IPR Barriers: Medical Readiness and Precertification Current Referrals and Status 1. [facility] IPR-accepted IPR will start precertification on Monday after updated therapy notes are in. For Case Management assistance for the weekend, please contact CM for assistance as needed (8:00am-4:30pm) BASH: [phone] Maria: [phone] Johan: [phone] Ross: [phone] For Social Work assistance for the weekend, please contact SW for assistance as needed (8:00am - 4:30pm): BASH: [phone] Maria: [phone] Johan: [phone] Ross: [phone] * Radha Gr APRN-SPEECH THERAPIST - 08/09/2024 8:07 AM EDT NEUROVASCULAR STROKE SERVICE Daily Progress Note IDENTIFYING INFORMATION Lindsay Acuna MR# [id number] 08/09/2024 HISTORY OF PRESENT ILLNESS Lindsay Acuna is a 78 y.o. female with PMH significant for CAD, HTN, HLD, T2DM, Afib (on Eliquis, although patient reports she has not been taking it) who presents with L hemiplegia, slurred speech. LKW 0915 on 08/02, later found down with slurred speech and L hemiplegia. She presented to [facility] and was seen on Telestroke, NIHSS [...] 2b revascularization. INTERVAL HISTORY 08/05: [place] MBS tomorrow 08/06: Failed MBS. Increased lopressor. [...] as above -Rate controlled on metoprolol Dysphagia: -ACCOUNT RESOLUTION EXPERT following -NPO, DHT + TF -Failed MBS [...] Lindsay Acuna will likely be discharged to [facility] when medically ready Radha Gr, JASIEL-SPEECH THERAPIST 08/09/2024 8:07 AM VITAL SIGNS Temp: [97.3 [...] for specific therapeutic recommendations, please see the post form remover report of the speech pathologist. Examination performed [...] 08/12/2024 10:46 AM EDT * Shelton Steel, ACCOUNT RESOLUTION EXPERT - 08/08/2024 1:10 PM EDT Acute Care [...] on the below outcome measures/assessment score(s) and ACCOUNT RESOLUTION EXPERT clinicaljudgment, discharge destination recommendation is: Inpatient Rehab Facility Acute ACCOUNT RESOLUTION EXPERT Outcomes Tracking Communicate basic wants and needs?: [...] pressions and introduction to effortful swallow exercise. ACCOUNT RESOLUTION EXPERT provided education regarding recommendation of NPO given [...] constraints (transport arrived for pt's CT scan). ACCOUNT RESOLUTION EXPERT will follow as able. Subjective information: Patient upright in chair, at bedside. Agreeable to ACCOUNT RESOLUTION EXPERT session. Pain: General Pain Documentation (Adult, OB, [...] room air Flow (L/min): [3] 3 Acute ACCOUNT RESOLUTION EXPERT Goals Plan of Care by RIKI Penaloza [...] phsyiology, risks of aspiration pneumonia). Educated regarding ACCOUNT RESOLUTION EXPERT role in swallow rehab and future POC Plan for next session: 08/06: cog tx and dysphagia exercises ACCOUNT RESOLUTION EXPERT Outcomes: FOIS: 1 Speech Language Pathologist: RIKI Penaloza Time In: 1310 Time Out: 1330 Total Visit Time: 20 minutes Total Treatment Time (skilled, billable minutes): 20 minutes Non-billable assistance during session: NA Assisted by during session: NA PPE used during patient interaction: gloves Patient location/status at end of session: chair Patient alarms at end of session: none altered Needs in reach. ACCOUNT RESOLUTION EXPERT Evaluation and Treatment Time Swallowing Dysfunction Treatment 63782: 20 Upon discontinuation of Acute Care Speech [...] feedback Mobility Assessment/Intervention: Supine to Sit Mobility [place] Level: Supine->Sit: moderate assist (50% patient effort) Physical Assist: Supine->Sit: 2 person assist Bed Features/Set-up: Supine->Sit: Use of bed rail, Head of bed elevated Skilled Rationale: Sequencing, Verbal cues, Hand placement, Positioning Skilled Intervention/Details: Supine->Sit: increased time/cues Transfer Assessment/Intervention: Sit to Stand Transfer [place] Level: Sit->Stand: moderate assist (50% patient effort) Physical Assist: Sit->Stand: 2 person assist Assistive Device: Sit->Stand: gait belt, hand held assist Skilled Rationale: Positioning, Sequencing, Hand placement, Verbal cues Skilled Intervention/Details: Sit->Stand: Pt educated in sit to stand transfers x 2 attempts, one from EOB and one from chair Bed-Chair Transfer [place] Level: Bed<->Chair: maximum assist (25% patient effort) [...] Mobility Assessment/Intervention: Stairs Assessment/Intervention: Outcome Score(s): CURRENT [facility] Basic Mobility Inpatient Short Form Turning [...] with a railin - Total Assistance CURRENT [facility] Mobility Raw Score: 8 CURRENT [facility] Mobility Functional Limitation: 86.62% Impaired in [...] positioning Mobility Assessment/Intervention: Supine to Sit Mobility [place] Level: Supine->Sit: moderate assist (50% patient effort) [...] positioning Transfer Assessment/Intervention: Sit to Stand Transfer [place] Level: Sit->Stand: moderate assist (50% patient effort) Physical Assist: Sit->Stand: 2 person assist Assistive Device: Sit->Stand: gait belt, hand held assist Skilled Rationale: Verbal cues, Tactile cues, Hand placement, Positioning, Technique of activity Skilled Intervention/Details: Sit->Stand: x1 from EOB, x1 from recliner. Cues for technique and assuming an upright posture once standing Stand to Sit Transfer [place] Level: Stand->Sit: moderate assist (50% patient effort) Physical Assist: Stand->Sit: 2 person assist Assistive Device: Stand->Sit: gait belt, hand held assist Skilled Rationale: Verbal cues, Tactile cues, Hand placement, Positioning, Controlled descent for sitting Skilled Intervention/Details: Stand->Sit: Cues for positioning with recliner and using arms to help with controlled descent into chair Bed-Chair Transfer [place] Level: Bed<->Chair: maximum assist (25% patient effort) [...] appropriately position with chair. Outcome Score(s): CURRENT [facility] Daily Activity Inpatient Short Form Putting on/Taking Off Lower Body Clothin - Total Assistance Bathin - A Lot of Assistance Toiletin - Total Assistance Putting on/Taking Off Upper Body Clothin - A Lot of Assistance Groomin - A Lot of Assistance Eatin - Total Assistance CURRENT [facility] Activity Raw Score: 9 CURRENT -[facility] Activity Functional Limitation/Modifier: 79.59% Currently [...] - 08/08/2024 1:50 PM EDT I, Teagan Cronin, OT, provided direct guidance in the room during this patient care session. I attest that all documentation reflects accurate skilled clinical decisions and judgements. * Bella Cardenas, MOSAIC TILER-SPEECH THERAPIST - 08/08/2024 7:21 AM EDT NEUROVASCULAR STROKE SERVICE Daily Progress Note IDENTIFYING INFORMATION Lindsay Acuna MR# [id number] 08/08/2024 HISTORY OF PRESENT ILLNESS Lindsay Acuna is a 78 y.o. female with PMH significant for CAD, HTN, HLD, T2DM, Afib (on Eliquis, although patient reports she has not been taking it) who presents with L hemiplegia, slurred speech. LKW 0915 on 08/02, later found down with slurred speech and L hemiplegia. She presented to [facility] and was seen on Telestroke, NIHSS [...] 2b revascularization. INTERVAL HISTORY 08/05: [place] MBS tomorrow 08/06: Failed MBS. Increased lopressor. [...] as above -Rate controlled on metoprolol Dysphagia: -ACCOUNT RESOLUTION EXPERT following -NPO, DHT + TF -Failed MBS [...] Lindsay Acuna will likely be discharged to [facility] when medically ready Bella Cardenas, MOSAIC TILER-SPEECH THERAPIST 08/08/2024 2:53 PM VITAL SIGNS Temp: [97.4 [...] for specific therapeutic recommendations, please see the post form remover report of the speech pathologist. Examination performed [...] bed availability Current Referrals and Status 1. [facility]- Reserved CCM notified SW student confirming after call with Patient's daughter that [facility] is facility of choice. Facility reserved. AVS/DAVE updated. Chela P., Social Work Student Available by Secure Chat Cosigned by OWEN Keller at 08/08/2024 7:39 AM EDT * Prema Resendez RN - 08/07/2024 2:39 PM EDT Care Management Progress Note Notified by LUCIO student that patient's daughter, Gisela Acuna, has questions for this CM. Called Gisela, who asked if [facility] is able to accept or not. Discussed with Gisela that [facility] responded that they are out of network with patient's insurance, therefore only option would be private pay. Gisela stated that patient and patient's spouse are agreeable to [facility] as facility of choice, and Gisela is agreeable to [facility] as well. Updated LUCIO student. Simin Resendez RN, BSN Clinical Ventilator Specialist [facility] * Chela Hannon - 08/07/2024 2:08 PM EDT Placement Plan BIOLOGICAL INSPECTOR met with Patient and spouse at bedside to discuss facility choice. Spouse mentioned that [facility] was first choice, though BIOLOGICAL INSPECTOR provided update that [facility] could not accept after reviewing. BIOLOGICAL INSPECTOR reviewed other IPR options with Spouse, who reports that [facility] would be facility of choice. Spouse discussed with daughter Gisela via phone, who is in agreement but requestsa return call. BIOLOGICAL INSPECTOR notified CCM. Social Darren Work Student Available by Secure Chat Cosigned by OWEN Keller at 08/07/2024 2:11 PM EDT * Bella Cardenas, MOSAIC TILER-SPEECH THERAPIST - 08/07/2024 6:54 AM EDT NEUROVASCULAR STROKE SERVICE Daily Progress Note IDENTIFYING INFORMATION Lindsay Acuna MR# [id number] 08/07/2024 HISTORY OF PRESENT ILLNESS Lindsay Acuna is a 78 y.o. female with PMH significant for CAD, HTN, HLD, T2DM, Afib (on Eliquis, although patient reports she has not been taking it) who presents with L hemiplegia, slurred speech. LKW 0915 on 08/02, later found down with slurred speech and L hemiplegia. She presented to [facility] and was seen on Telestroke, NIHSS [...] 2b revascularization. INTERVAL HISTORY [place]05: [place] [facility] [place]: Failed MBS. Increased lopressor. Spouse [...] as above -Rate controlled on metoprolol Dysphagia: -ACCOUNT RESOLUTION EXPERT following -NPO, DHT + TF -Failed MBS [...] Lindsay Acuna will likely be discharged to [facility] when medically ready Bella Cardenas, MOSAIC TILER-SPEECH THERAPIST 08/07/2024 3:06 PM VITAL SIGNS Temp: [97.5 [...] for specific therapeutic recommendations, please see the post form remover report of the speech pathologist. Examination performed [...] Current Referrals and Status 1. [facility]: Available 2. [facility]: Available 3. [facility]: Available (pending PEG or diet and their MD requested aspirin started before discharge) 4. [facility]: Available 5. [facility]: Unavailable, out of network 6. [facility]: Unavailable, Incorrect Level of Care 7. [facility] IPR: sent Met with patient and patient's spouse, Ike, at bedside to provide choice list. Ike called patient's daughter, Gisela Acuna, to discuss as well. Gisela requested information on private pay at [facility], messaged [facility] liaison and then provided information to Gisela. Gisela requested CM sendreferral to [facility] IPR. Plan for family to review choice list FREDRICK camargo/LUCIO team will update patient and family regarding [facility] IPR response tomorrow morning. This CM's contact information provided to Ike Acuna and Gisela Acuna for any further questions. Simin Resendez RN, BSN Clinical Ventilator Specialist [facility] * Florinda Velasquez, PT - 08/06/2024 2:30 [...] minutes Mobility Assessment/Intervention: Supine to Sit Mobility [place] Level: Supine->Sit: moderate assist (50% patient effort) Bed Features/Set-up: Supine->Sit: Head of bed elevated, Use of bed rail Skilled Rationale: Positioning, Sequencing Skilled Intervention/Details: Supine->Sit: step by step cues for sequencingg Transfer Assessment/Intervention: Sit to Stand Transfer [place] Level: Sit->Stand: moderate assist (50% patient effort) [...] left UE during transitional movements Bed-Chair Transfer [place] Level: Bed<->Chair: moderate assist (50% patient effort) Physical Assist: Bed<->Chair: 2 person assist Assistive Device: Bed<->Chair: gait belt, hand held assist Skilled Rationale: Positioning, Hand placement, Verbal cues, Sequencing Skilled Intervention/Details: Bed<->Chair: Pt educated in bed to BSC commode transfer x 2-3 steps with cues for LE sequencing, left LE weakness requiring intermittent blocking Gait/Functional Mobility Assessment/Intervention: Gait Assessment [place] Level: Gait: (mod/max) Physical Assist: Gait: 2 [...] prevent buckling. Stairs Assessment/Intervention: Outcome Score(s): CURRENT [facility] Basic Mobility Inpatient Short Form Turning [...] with a railin - Total Assistance CURRENT [facility] Mobility Raw Score: 9 CURRENT [facility] Mobility Functional Limitation: 81.38% Impaired in [...] Physical Therapy Discharge Summary. * Nimesh Balderrama [facility] - 08/06/2024 1:42 PM EDT Department of Pharmacy Admission Medication Reconciliation Note Patient: Lindsay Acuna Room/Bed: [facility]3/A I have reviewed the patient's home medication list with the following sources Dispense Report. The home medication list status is: complete. All changes to the home medication list have been updated in [facility]. Updated MANAGER OF ADMINISTRATION Med List: Prior to Admission Medications Prescriptions [...] questions. Name: Nimesh Balderrama RPH Phone #: [phone] Date/Time: 08/06/2024 1:42 PM Time Spent: 10 [...] noted Mobility Assessment/Intervention: Supine to Sit Mobility [place] Level: Supine->Sit: moderate assist (50% patient effort) [...] completion. Transfer Assessment/Intervention: Sit to Stand Transfer [place] Level: Sit->Stand: (x 1 trial from EOB [...] and kyphotic posture. Stand to Sit Transfer [place] Level: Stand->Sit: moderate assist (50% patient effort) Assistive Device: Stand->Sit: gait belt (Arm and arm assist.) Skilled Rationale: Cues for increased safety, Initiation and execution of task, Technique of activity, Controlled descent for sitting, Ischial assist, Arm in arm, Tactile cues, Verbal cues, Hand placement, Sequencing, Positioning Bed-Chair Transfer [place] Level: Bed<->Chair: moderate assist (50% patient effort) [...] with left LE). Functional Mobility: Functional Mobility [place] Level: Functional Mobility/Gait: (Moderate-max assistance) Physical Assist: [...] overall decreased insight/awareness intodeficits. Outcome Score(s): CURRENT [facility] Daily Activity Inpatient Short Form Putting on/Taking Off Lower Body Clothin - Total Assistance Bathin - A Lot of Assistance Toiletin - Total Assistance Putting on/Taking Off Upper Body Clothin - A Lot of Assistance Groomin - A Lot of Assistance Eatin - Total Assistance ([place].) CURRENT [facility] Activity Raw Score: 9 CURRENT [facility] Activity Functional Limitation/Modifier: 79.59% Currently Impaired [...] Occupational Therapy Discharge Summary. * Taran Traore, JASIEL-SPEECH THERAPIST - 08/06/2024 7:49 AM EDT NEUROVASCULAR STROKE SERVICE Daily Progress Note IDENTIFYING INFORMATION Lindsay Acuna MR# [id number] 08/06/2024 HISTORY OF PRESENT ILLNESS Lindsay Acuna is a 78 y.o. female with PMH significant for CAD, HTN, HLD, T2DM, Afib (on Eliquis, although patient reports she has not been taking it) who presents with L hemiplegia, slurred speech. LKW 0915 on 08/02, later found down with slurred speech and L hemiplegia. She presented to [facility] and was seen on Telestroke, NIHSS [...] 2b revascularization. INTERVAL HISTORY 08/05: [place] [facility]: Failed MBS. Increased lopressor. Spouse [...] as above -Rate controlled on metoprolol Dysphagia: -ACCOUNT RESOLUTION EXPERT following -NPO, DHT + TF -Failed MBS [...] Lindsay Acuna will likely be discharged to [facility] when medically ready Taran Traore APRN-SPEECH THERAPIST 08/06/2024 1:43 PM VITAL SIGNS Temp: [96.5 [...] for specific therapeutic recommendations, please see the post form remover report of the speech pathologist. Examination performed [...] Progress Note IDENTIFYING INFORMATION Lindsay Acuna MR# [id number] 08/05/2024 HISTORY OF PRESENT ILLNESS Lindsay Acuna is a 78 y.o. female with PMH significant for CAD, HTN, HLD, T2DM, Afib (on Eliquis, although patient reports she has not been taking it) who presents with L hemiplegia, slurred speech. LKW 0915 on 08/02, later found down with slurred speech and L hemiplegia. She presented to [facility] and was seen on Telestroke, NIHSS [...] 2b revascularization. INTERVAL HISTORY 08/05: Transfer to [facility] tomorrow PHYSICAL EXAM Gen: awake, alert, NAD [...] as above -Rate controlled on metoprolol Dysphagia: -ACCOUNT RESOLUTION EXPERT following -NPO, DHT + TF -MBS tomorrow HLD, POA: -Atorvastatin 40 mg daily CAD, POA: -Hold ASA for 7 days due to ICH T2DM, POA: -SSI regular + accuchecks CKD Stage 3A, POA: Baseline Cr 1.3 -Avoid nephrotoxins, monitor Hypothyroidism, POA: -Continue home levothyroxine 75 mcg daily Disposition: Lindsay Acuna will likely be discharged to [facility] when medically ready Taran Traore APRN-SPEECH THERAPIST 08/05/2024 2:19 PM VITAL SIGNS Temp: [97.8 [...] on the below outcome measures/assessment score(s), and ACCOUNT RESOLUTION EXPERT clinical judgment, discharge destination recommendation is: Pending [...] Impaired cognitive skills limiting saf ety/insight Acute ACCOUNT RESOLUTION EXPERT Outcomes Tracking Communicate basic wants and needs?: [...] oropharyngeal swallow function to most appropriately guide ACCOUNT RESOLUTION EXPERT plan of care. Of note, patient is [...] Currentdeficits impact her safety and independence. Ongoing ACCOUNT RESOLUTION EXPERT services are warranted. Subjective information: Awake, alert, [...] O2 Device: room air (08/05 0830) Acute ACCOUNT RESOLUTION EXPERT Goals Plan of Care by Queta Gardner ACCOUNT RESOLUTION EXPERT at 08/05/2024 11:49 AM Version 1 of [...] oropharyngeal swallow function to most appropriately guide ACCOUNT RESOLUTION EXPERT plan of care Outcome: Ongoing Problem: ACCOUNT RESOLUTION EXPERT - Cognition Goal: Orientation Log - Patient [...] better assess deficits and most appropriately guide ACCOUNT RESOLUTION EXPERT plan of care Outcome: Met Tx: Noted [...] for next session: 08/05: Good candidate; FERNANDO ACCOUNT RESOLUTION EXPERT Outcomes: ACCOUNT RESOLUTION EXPERT Outcomes / Standardized Measures Score The Orientation [...] attempt Total Score: 25 Speech Language Pathologist: IRKI Sharma Time In: 1149 Time Out: 1206 [...] wrist restraints, RN aware Needs in reach. ACCOUNT RESOLUTION EXPERT Evaluation and Treatment Time Speech Therapy - Individual 42729: 8 Swallowing Dysfunction Treatment 69145: 9 Upon discontinuation of Acute Care Speech Therapy Services or patient discharge from the hospital this note represents the current Speech Therapy Discharge Summary * Chela Parvez - 08/05/2024 10:37 AM EDT Placement Plan Expected Discharge Date: TBD Referred Level of Care: IPR Barriers: medical stability, bed availability Current Referrals and Status 1. [facility]- sent; denied (Patient is OON) 2. [facility]- sent 3. [facility]- sent 4. [facility]- sent 5. [facility]- sent 6. [facility] BIOLOGICAL INSPECTOR met with Patient and Spouse at bedside to discuss discharge planning. Patient and spouse were agreeable to SW visit. BIOLOGICAL INSPECTOR discussed therapy recommendations with Spouse for Patient to go to [facility] at discharge. Spouse is agreeable to a referral being sent to [facility]. Referral sent. Spouse requested to speak to SW about assessing Patient for dementia. BIOLOGICAL INSPECTOR and bedside RN encouragedSpouse to discuss with Patient's outpatient provider. Chela Snyder, Social Work Student Available by Secure Chat Cosigned by OWEN Keller at 08/05/2024 11:22 AM EDT * Savana Nietosandee, RD - 08/05/2024 10:10 AM EDT NUTRITION ASSESSMENT Nutrition Recommendations and Plan of Care: 1. Diet: NPO. Advancement per team/ACCOUNT RESOLUTION EXPERT recommendation 2. Ordered TF: Glucerna 1.5 @ [...] time. Per team, pt failed bedside swallow. ACCOUNT RESOLUTION EXPERT consulted for swallow eval. Past History No [...] kg (172 lb) 06/26/24 78.9 kg (174 lb)-[facility] 05/31/24 79 kg (174 lb 2.6 oz)-[facility] 11/28/23 80.6 kg (177 lb 9.6 oz)-[facility] 09/29/23 84 kg (185 lb)-[facility] Pt without significant weight change MANAGER OF ADMINISTRATION. Tmax: 97.8*F BP: (!) 173/94 Pulse (Heart [...] proximal second portion of the duodenum. BM: MANAGER OF ADMINISTRATION Urine: 725mL Skin: Raghu Score: 13 Active Wounds: Wound Sheath Site 08/02/24 1500 Right Radial (3) Wound Abrasion 08/02/24 2109 Left;Upper Face (3) Edema- None Estimated Nutrition Needs: Based on IBW (61.4kg) Estimated Kcals Needs: 9397-6268 kcals (25-30kcals/kg) Estimated Pro Needs: 74-92g Pro (1.2-1.5g/kg) Estimated Fluid Needs: Per MD Nutrition Focused Physical Exam Completed?: completed Subcutaneous Fat Loss: Orbital Region (Orbital Fat Pads): WDL Cheek Region (Buccal Fat Pads): WDL Upper Arm Region (Triceps): WDL Thoracic and Lumbar Region (Ribs, Lower Back, Midaxillary Line): WDL Muscle Wasting: Mandaen Region (Temporalis Muscle): deferred (lac over eyebrow) [...] (AAIM) criteria (2012) ELVIRA Ho, RD, LD, [facility] Pager: [phone] * Rashad Rg MD - 08/05/2024 9:42 AM EDT 78F admitted to the [facility] with Rt M1 occlusion s/p TICI2b revascularization. [...] critical care time 31min. * Shanna Russ, JASIEL-SPEECH THERAPIST - 08/05/2024 7:20 AM EDT NEUROCRITICAL CARE [...] Visual richards intact to confrontation. PERRL. 3mm clinical writer III, IV and : EOMI. No nystagmus. [...] aggressive pulm edema, OOB as toleratd - [id number], encourage pulmonary toileting Cards: Essential HTN HLD [...] TUBE FEEDING with meds (per DHT) - Carriere Swallow Screening Result: failed=NPO Bowel regimen: - Last Bowel Movement: (prior to admission) - Senna 17.2 mg Q12H, miralax BID, suppository PRN Stress ulcer prophylaxis: - none Dysphagia - DHT placed - ACCOUNT RESOLUTION EXPERT following; NPO continue following, on TF - [...] Social/Dispo: - Code status: Full Code - 3/21: Medications reconciled - Discharge planning per PCRM/SW. [...] not indicated DVT: subcutaneous heparin [x] Lines Centerpoint: n/a Gallegos: remove Rectal tube: n/a Enteral [...] the assigned neurocritical care provider (resident, fellow, PRICING LEAD, orPA) or page/call the corresponding number below NCC1 (Beds 3410-8839): [place] # [phone], pager #[phone] NCC2 (Beds 8813-3925, 12 Nando, and overflow): [place] #: [phone], pager #[phone] * Florinda Velasquez, PT - 08/04/2024 1:36 [...] noted Mobility Assessment: Supine to Sit Mobility [place] Level: Supine->Sit: moderate assist (50% patient effort) [...] EOB Transfer Assessment: Sit to Stand Transfer [place] Level: Sit->Stand: moderate assist (50% patient effort) Physical Assist: Sit->Stand: 2 person assist Assistive Device: Sit->Stand: gait belt, hand held assist Skilled Rationale: Positioning, Sequencing, Hand placement, Verbal cues Skilled Intervention/Details: Sit->Stand: x 1 from EOB Bed-Chair Transfer [place] Level: Bed<->Chair: moderate assist (50% patient effort) Physical Assist: Bed<->Chair: 2 person assist Assistive Device: Bed<->Chair: gait belt, hand held assist Skilled Rationale: Positioning, Sequencing, Hand placement, Verbal cues Skilled Intervention/Details: Bed<->Chair: x 2-3 steps from bed to chair Gait/Functional Mobility: Stairs: Outcome Score(s): CURRENT [facility] Basic Mobility Inpatient Short Form Turning [...] with a railin - Total Assistance CURRENT [facility] Mobility Raw Score: 10 CURRENT [facility] Mobility Functional Limitation: 76.75% Impaired in [...] Evaluation (Moderate) Time Entry: 18 Evaluating Therapist: Flornida Velasquez PT Additional Details: PT Co-Eval/Treatment Information [...] Edema: Mobility Assessment: Supine to Sit Mobility [place] Level: Supine->Sit: moderate assist (50% patient effort) Physical Assist: Supine->Sit: 2 person assist Bed Features/Set-up: Supine->Sit: Head of bed elevated Skilled Rationale: Positioning, Hand placement, Verbal cues, Technique of activity Transfer Assessment: Sit to Stand Transfer [place] Level: Sit->Stand: moderate assist (50% patient effort) Physical Assist: Sit->Stand: 2 person assist Assistive Device: Sit->Stand: gait belt, hand held assist Skilled Rationale: Positioning, Hand placement, Verbal cues, Technique of activity Stand to Sit Transfer [place] Level: Stand->Sit: moderate assist (50% patient effort) Physical Assist: Stand->Sit: 2 person assist Assistive Device: Stand->Sit: hand held assist Skilled Rationale: Positioning, Hand placement, Verbal cues, Arm in arm, Controlled descent for sitting Bed-Chair Transfer [place] Level: Bed<->Chair: moderate assist (50% patient effort) Physical Assist: Bed<->Chair: 2 person assist Assistive Device: Bed<->Chair: gait belt, hand held assist Skilled Rationale: Arm in arm, Patellar block, Technique of activity Skilled Intervention/Details: Bed<->Chair: LLE weakness/blocking of patella with transfer, pivot to right Functional Mobility: Outcome Score(s): CURRENT AM-PAC Daily Activity Inpatient [...] assessment and plan as documented by the PRICING LEAD with my changes/additions added. Patient is a [...] ICH x 7 days - Statin - PT/OT/ACCOUNT RESOLUTION EXPERT evaluation Pulmonary: No acute issues, appears to [...] and other supportive care as per the PRICING LEAD note from the same day This patient [...] care services to the patient today [facility], [facility] and other care providers. Management of the above was performed. My time managing this critically ill patient included review of interval history, laboratories, radiology and cons ultation reports; performing a physical examination; discussing the patient with the multi-disciplinary team and managing life sustaining therapies to prevent imminent clinical deterioration. Richard Mejia MD Neurocritical Care Attending * Balbir Mccoy, MOSAIC TILER-SPEECH THERAPIST - 08/04/2024 7:44 AM EDT NEUROCRITICAL CARE [...] Visual richards intact to confrontation. PERRL. 3mm clinical writer III, IV and : EOMI. No nystagmus. [...] SpO2 >92%; wean FiO2 as tolerated - [id number], encourage pulmonary toileting Cards: Essential HTN HLD [...] NPO AND TUBE FEEDING with meds (per [facility]) - Carriere Swallow Screening Result: failed=NPO Bowel regimen: - Last Bowel Movement: (prior to admission) - Senna 17.2 mg Q12H, miralax at bedtime Stress ulcer prophylaxis: - none Dysphagia - DHT placed - ACCOUNT RESOLUTION EXPERT following - Tube feed: Vital AF with [...] not indicated DVT: subcutaneous heparin [x] Lines [place]: n/a Gallegos: inserted 08/02, (indication: strict I&O [...] the assigned neurocritical care provider (resident, fellow, PRICING LEAD, orPA) or page/call the corresponding number below NCC1 (Beds 9601-7185): [place] # [phone], pager #[phone] NCC2 (Beds 8051-7933, 12 Nando, and overflow): [place] #: [phone], pager #[phone] * Rafael Garcia MD - 08/03/2024 2:16 PM EDT NEUROVASCULAR Consult Daily Progress Note IDENTIFYING INFORMATION Lindsay Acuna MR# [id number] 08/03/2024 HISTORY OF PRESENT ILLNESS Lindsay Acuna is a 78 y.o. female with PMH significant for CAD, HTN, HLD, T2DM, Afib (on Eliquis, although patient reports she has not been taking it) who presents with L hemiplegia, slurred speech. She was last seen normal by her at 0915, later found down with slurred speech and L hemiplegia. She presented to [facility] and was seen on Telestroke, NIHSS [...] speech and L hemiplegia. She presented to [facility] and was seen on Telestroke, NIHSS [...] workup. Delbert Kasper MD * Nohelia Oconnell, ACCOUNT RESOLUTION EXPERT - 08/03/2024 12:09 PM EDT Acute Care ACCOUNT RESOLUTION EXPERT Speech/Language/Cognitive Evaluation Best mode of Communication: spoken language (regular speech) Discharge Recommendations: Based on the below outcome measures/assessment score(s) and ACCOUNT RESOLUTION EXPERT clinicaljudgment, discharge destination recommendation is: (Skilled speech therapy services at next level of care) Barriers to discharge home: Cognitive impairments that impact safety and independence Supporting factors for discharge setting: Impaired swallow function limiting nutritional status andsafety with oral intake Acute ACCOUNT RESOLUTION EXPERT Outcomes Tracking Communicate basic wants and needs?: [...] speech and L hemiplegia. She presented to [facility] and was seen on Telestroke,NIHSS 12. [...] 0 Asthenia (A): 0 Strain (S): 0 ACCOUNT RESOLUTION EXPERT Outcomes / Standardized Measures Score The Orientation [...] unable to respond. Total Score: 12 Acute ACCOUNT RESOLUTION EXPERT Goals Plan of Care by RIKI Hayes at 08/03/2024 11:25 AM Version 1 of 1 Problem: Dysphagia Goal: Ongoing Assessment - Patient will participate in ongoing assessment by accepting various PO consistency trials with appropriate participation/oral acceptance and no significant respiratory complications to determine readiness for diet advancement Outcome: Ongoing Problem: ACCOUNT RESOLUTION EXPERT - Cognition Goal: Orientation Log - Patient [...] better assess deficits and most appropriately guide ACCOUNT RESOLUTION EXPERT plan of care Outcome: Ongoing Speech Language [...] of session: bed alarm Needs in reach. ACCOUNT RESOLUTION EXPERT Evaluation and Treatment Time Speech Eval - Sound Production W/Lang Comp and Exp 42414: 11 Swallowing Eval 90684: 10 Upon discontinuation of Acute Care Speech [...] on the below outcome measures/assessment score(s) and ACCOUNT RESOLUTION EXPERT clinicaljudgment, discharge destination recommendation is: Deferred to PT/OT recomendations related to mobility Current therapy frequency recommendation in acute care: Swallow Therapy Frequency: 5 times a week Acute ACCOUNT RESOLUTION EXPERT Outcomes Tracking Communicate basic wants and needs?: [...] speech and L hemiplegia. She presented to [facility] and was seen on Telestroke,NIHSS 12. 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 Prior ACCOUNT RESOLUTION EXPERT history: No prior speech history per chart [...] and Liquids Trialed Modality Amount Ice Teaspoon, ACCOUNT RESOLUTION EXPERT-fed 3x Thin Teaspoon 3x Oral Phase Function [...] Patient presents with presumed pharyngeal phase impairments. Carriere Swallow Screen: (administered by: RN) Tabitha Swallow Screening Screening Exclusion Criteria: none, continue with Carriere Swallow Screening Cognitive Screen: Orientation: able to [...] Water Swallow Challenge : coughing/throat clearing-overt signs/symptoms Carriere Swallow Screening Result: failed=NPO Voice and Swallow [...] Ok for ice chips with RN supervision. ACCOUNT RESOLUTION EXPERT will continue to follow for ongoing dysphagia management. Patient Education/Instruction Learners: Patient Education provided: Dysphagia recommendation risk: benefit analysis, Role of this discipline Teaching method: Verbal Education/Instruction Learner response: Needs review Learning preferences: Auditory Learning considerations: Cognition Plan for next session: 08/03: Good Prognosis, ongoing dysphagia management to determine readiness for diet advancement vs instrumental. Acute ACCOUNT RESOLUTION EXPERT Goals Plan of Care by RIKI Hayes at 08/03/2024 11:25 AM Version 1 of 1 Problem: Dysphagia Goal: Ongoing Assessment - Patient will participate in ongoing assessment by accepting various PO consistency trials with appropriate participation/oral acceptance and no significant respiratory complications to determine readiness for diet advancement Outcome: Ongoing Problem: ACCOUNT RESOLUTION EXPERT - Cognition Goal: Orientation Log - Patient [...] better assess deficits and most appropriately guide ACCOUNT RESOLUTION EXPERT plan of care Outcome: Ongoing Speech Language Pathologist: RIKI Hayes, BCS-S Board Certified Specialist in Swallowing and Swallowing Disorders Available via [employer] Chat Time In: 1130 Time Out: 1151 Total Visit Time: 21 minutes Total Treatment Time (skilled, billable minutes): 21 minutes Non-billable assistance during session: none Assisted by during session: Patient's PPE used during patient interaction: gloves Patient location/status at end of session: bed with head of bed elevated Patient alarms at end of session: bed alarm Needs in reach. ACCOUNT RESOLUTION EXPERT Evaluation and Treatment Time Speech Eval - Sound Production W/Lang Comp and Exp 72647: 11 Swallowing Eval 18246: 10 Upon discontinuation of Acute Care Speech Therapy Services or patient discharge from the hospital this note represents the current Speech Therapy Discharge Summary * Richard Mejia MD - 08/03/2024 10:30 AM EDT I have independently seen and examined the patient on 08/03/24. I agree with the history, examination, assessment and plan as documented by the PRICING LEAD with my changes/additions added. Patient is a [...] the setting of ICH - Statin - PT/OT/ACCOUNT RESOLUTION EXPERT evaluation Pulmonary: No acute issues, appears to [...] and other supportive care as per the PRICING LEAD note from the same day This patient [...] care services to the patient today [facility], teaching and other care providers. Management [...] with assistance from spouse Care Management Plan BIOLOGICAL INSPECTOR met with Patient and Spouse at bedside to complete Initial Assessment. They were agreeable to SW visit. Patient was lethargic though able to answer some short questions. Patient consented to Spouse assisting with assessment. Spouse/Patient report that Patient has never completed a HCPOA. They expressed interest, and BIOLOGICAL INSPECTOR will follow to complete document when Patient is more alert and oriented. Spouse reports himself and Patient live in a ranch-style home with strong supports from their community, including 2 neighbors that have assisted at this time. He noted that himself and Patient recently returned from a visit to [facility] for their 50th anniversary. Spouse reports that their 2 children will be visiting soon. BIOLOGICAL INSPECTOR explained SW role and offered resources. Spouse [...] Name and Contact information: Ike Acuna P: [phone] Adult Child(jj), List All Adult Children: Yes Name and Contact information: Donnell Acuna P: [phone]; Nathen Acuna P: [phone] Would you like to add additional adult [...] for Advance Care Planning? : Patient Agreeable (BIOLOGICAL INSPECTOR to follow for HCPOA completion when Patient is more alert and oriented) Medication Management Does the patient have prescription insurance coverage? : Yes Is the patient on Anticoagulation? : Yes (Per chart review, Patient is on anticoagulation but has not been taking it (does not recall the last time she took a dose)) Provider or Clinic that manages Anticoagulation?: (unspecified at this time) [facility] [address] [place], [place] [id number] [address] [address] Living Environment and Support System Is the patient from a facility or retirement?: No Living Environment: House ("1 bedroom ranch") Patient Caregiving Responsibilities: Self Patient-identified caregiver/support network: Family, Friends, Neighbors, Protestant Who does the patient identify as a [...] themselves at home? : Unable to assess Blood Bank Technician Does the patient or claim representative express financial concerns? : No Chela Snyder, Social Work Student Available by Secure Chat Cosigned by OWEN Keller at 08/03/2024 11:20 AM EDT * Balbir Mccoy, MOSAIC TILER-SPEECH THERAPIST - 08/03/2024 7:40 AM EDT NEUROCRITICAL CARE [...] Visual richards intact to confrontation. PERRL. 3mm clinical writer III, IV and : EOMI. No nystagmus. [...] SpO2 >92%; wean FiO2 as tolerated - [id number], encourage pulmonary toileting Cards: Essential HTN HLD [...] - Bowel regimen: - Last Bowel Movement: (MANAGER OF ADMINISTRATION) - Senna, miralax Stress ulcer prophylaxis: - none Dysphagia - DHT placed - ACCOUNT RESOLUTION EXPERT following - Tube feed: Vital AF with [...] Emergency Contact: Ike Acuna, Eron Last updated: 08/03 at bedside [x] Prophylaxis [...] the assigned neurocritical care provider (resident, fellow, PRICING LEAD, orPA) or page/call the corresponding number below NCC1 (Beds 8306-4490): [place] # [phone], pager #[phone] NCC2 (Beds 6057-6291, 12 Nando, and overflow): [place] #: [phone], pager #[phone] * Nando Caceres MD - 08/03/2024 6:00 [...] nccu Neurosurgery signing off Please page [phone] ([email or web address]) with questions Complexity. Hypocalcemia - Continue to monitor and replete. Any conditions listed below are present on admission unless otherwise specified. . Cosigned by Prema Ramos MD at 08/03/2024 6:37 PM EDT * Andreas Ga [facility] - 08/02/2024 10:57 PM EDT Department of Pharmacy Renal Documentation Note Patient: Lindsay Acuna Room[facility]Bed[facility]A Assessment and Plan: The patient's most recent [...] any questions, Name: Andreas Ga RPH Phone: [phone] Date/Time: 08/02/2024 10:57 PM * Richard Mejia MD - 08/02/2024 6:01 PM EDT I have independently seen and examined the patient on 08/02/24. I agree with the history, examination, assessment and plan as documented by the PRICING LEAD with my changes/additions added. Patient is a [...] to determine stroke burden - Statin - PT/OT/ACCOUNT RESOLUTION EXPERT evaluation Pulmonary: No acute issues, appears to [...] stage 3a - Maintain euvolemia GI/Nutrition: - ACCOUNT RESOLUTION EXPERT evaluation - Bowel regimen to prevent constipation [...] and other supportive care as per the PRICING LEAD note from the same day This patient [...] MD Neurocritical Care Attending documented in this [facility]03-29-2025 Consult note* Niru Koch MD - [...] PM EDTAssociated Order(s): IP CONSULT TO GASTROENTEROLOGY [facility] Main IBD Consult [employer] --> IM Consult Serv [facility] --> [facility] Main IBD consult service Fellow [...] today. Consent obtained by at bedside. 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 Patient is appropriate for endoscopic PEG placement. Consent obtained from at bedside. - we will tentatively plan for EGD for PEG placement 08/09 as add on case. See pre procedure recommendations below. For PEG: - Ancef ordered (1 gm if patient is <80 kg; 2 gm if patient is >80 kg) as "precision lens generator to the procedure"). - Please make NPO [...] Hepatology, and Nutrition Clinical Fellow PGY-4 Pager: [phone] For urgent/stat calls 5pm to 7am or [...] and medical decisions as outlined. Need for regional intermodal 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 non-oral enteric nutrition per primary team. We will facilitate this with planned PEG tube placement. Before placement, non-GI management of TF should be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 EDT This note was created using Quippiriter. Subjective Lindsay Acuna is a 77 year old female. 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 Denies fever or chills Denies malaise or fatigue Denies new lotions, soaps, or medicines States that she was working out in the garden the same day the rash erupted. The history is provided by the patient. No wire mesh knitter was used. Rash This is a new [...] worsen. Radha Levine APRN.CNP documented in this encounterWayne [facility]05-07-2024 Telephone encounter Note * Telephone Encounter - Mj Glover APRN.CNP - 09/19/2023 9:46 AM EDT The following approved medication requests have been transmitted electronically. Requested Prescriptions Pending Prescriptions Disp Refills glimepiride (AMARYL) 2 mg tablet 90 tablet 3 Sig: Take 1 tablet by mouth daily with breakfast. Mj Glover APRN.CNP [facility]05-07-2024 Miscellaneous Notes* Telephone Encounter - Mj Glover [...] you. Brigitte Dorsey RN. documented in this encounterWayne Healthcare [facility] Campus05-07-2024 Telephone encounter Note * Telephone Encounter - [...] care: 11/28/2023 Please advise. Thank you. Brigitte Dorsey, RN. [facility]11-25-2023 Miscellaneous Notes* Telephone Encounter - Kameron Caruso MD - 04/08/2023 11:04 AM EST OK to refill as ordered Kameron Caruso MD * Telephone Encounter - Carmencita Baker LPN - 04/08/2023 10:57 AM EST Pt calling for refills. Last seen pcp 11/25/22. Next appt with pcp 05/30/23. documented in this encounterWayne Healthcare [facility] Campus07-14-2023 Miscellaneous Notes* Telephone Encounter - Kameron Caruso MD - 11/25/2022 11:58 AM EDT Done Kameron Caruso MD * Telephone Encounter - Jaiden Paulino RN - 11/25/2022 10:43 AM EDT Patient asking pcp if you can cancel the jardiance on her med list, because it shows up on her MyChart, and she does not take it. documented in this encounterWayne Healthcare [facility] Campus01-13-2023 History of Present illness Narrative* Kameron Caruso [...] BY MOUTH ONCE DAILY WITH BREAKFAST lancets (i2i LogicTOUCH DELICA PLUS LANCET) 30 gauge Test blood [...] Moderate Kameron Caruso MD documented in this encounterWayne Healthcare [facility] Campus11-28-2022 Miscellaneous Notes* Telephone Encounter - Mj Glover [...] Isaac Mendez LPN * Telephone Encounter - [facility] - 04/11/2022 8:49 AM EST Patient has been identified by name and date of : Yes Requested Prescriptions No prescriptions requested or ordered in this encounter RX INSTRUCTIONS: Patient aware RX will be sent to pharmacy. No need to notify patient. [facility] documented in this encounterWayne Healthcare Main Campus10-19-2022 Instructions* Patient Instructions* Emma Sotomayor APRN.CNP - 03/02/2022 11:11 AM EDT Start prednisone taper, take with food. May use Tylenol while taking the steroid. May use flexeril 3 times daily as needed for muscle tension. May make you sleepy. You were given Toradol in the office. Apply heat to the area. Follow up if symptoms do not improve. documented in this encounterWayne Healthcare Main Campus10-19-2022 History of Present illness Narrative* Emma Sotomayor [...] the legs. Has has not tried any ccbf-[id number]-[id number] analgesia, refers that she does not like [...] BY MOUTH ONCE DAILY WITH BREAKFAST lancets (i2i LogicTOUCH DELICA PLUS LANCET) 30 gauge Test blood [...] were discussed and patient voices understanding. Emma Sotomayro APRN.GARRETT This note was partially generated using DigiFit voice recognition system. Note was reviewed for accuracy. There may be minor misspellings or grammar miscues with DigiFit voice recognition. documented in this encounterWayne Healthcare Main Campus10-19-2022 Miscellaneous Notes* Telephone Encounter - Michelle Hu [...] urine 11. : no Protocols used: Back Izob-UNXMF-HD documented in this encounterWayne Healthcare Main Campus08-30-2022 Miscellaneous Notes* Telephone Encounter - Jumana Modi [...] patient. Aditi Conley Pss documented in this encounterWayne Healthcare Main Campus08-30-2022 Miscellaneous Notes* Telephone Encounter - Kameron Caruso [...] ONCE DAILY WITH BREAKFAST documented in this encounterWayne Healthcare Main Campus08-04-2022 Miscellaneous Notes* Telephone Encounter - Mj Glover [...] request. Brigitte Dorsey RN documented in this encounterWayne Healthcare Main Campus07-12-2022 Miscellaneous Notes* Telephone Encounter - Mj Glover [...] script for mouth rinse is sent to [facility] Chlorhexidene Gluconate 0.12% Patient was instructed to contact office after her appointment with name of medication. PCP agreed to fill Please advise documented in this encounterWayne Healthcare Main Campus07-12-2022 History of Present illness Narrative* Kameron Caruso MD - 11/23/2021 9:40 AM EDT Chief Complaint Patient presents with: F/U 6 Month HPI Lindsay Acuna is a 76 year old female who presents here today for a 6 month follow up. Pt here today for a 6 month follow up. Recently back from [facility]. Was told by Natives to not [...] she was in [facility] they had to go up [address] [...] mouth daily with breakfast. 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 Adenike Walton Ma documented in this encounterWayne Healthcare Main Campus06-02-2022 Miscellaneous Notes* Telephone Encounter - Kameron Caruso MD - 10/14/2021 9:34 AM EDT Order filed Kameron Caruso MD * Telephone Encounter - Adenike Walton Ma - 10/14/2021 9:20 AM EDT Pt stopped in the office and is requesting a new meter to be sent into [facility]. Pt uses OneTouch Meter. Adenike Walton Ma documented in this encounterWayne Healthcare [facility] Campus05-31-2022 Miscellaneous Notes* Telephone Encounter - Kameron Caruso [...] were going to go to [facility] they have closed the border there and they are now going to [facility]. 1. Please advise if they have to [...] back. Shreya Barrios LPN documented in this encounterWayne Healthcare [facility] Campus05-09-2022 Miscellaneous Notes* Telephone Encounter - Jumana Modi [...] 09/14/2021 11:42 AM EDT According to the [facility] travel site Typhoid vaccine is also recommended, [...] Please call and advise. documented in this encounterWayne Healthcare Main Campus06-22-2021 History of Past illness Narrative* Problem Noted Date Resolved Date Hypertensive kidney disease with stage 3 chronic kidney disease 11/03/2020 11/05/2020 Diabetes mellitus with renal complications 05/0111/03/2020 PURE HYPERCHOLESTEROLEM 11/27/19 14 DIABETES MELLITUS TYPE II-UNCOMPL 11/26/2013 documented as of this encounter (statuses as of 09/20/2021) [facility] History of Past illness Narrative* Problem Noted Date Resolved Date Hypertensive kidney disease with stage 3 chronic kidney disease 11/03/2020 11/05/2020 Diabetes mellitus with renal complications 05/0111/03/2020 PURE HYPERCHOLESTEROLEM 11/27/19 14 DIABETES MELLITUS TYPE II-UNCOMPL 11/26/2013 documented as of this encounter (statuses as of 10/12/2021) [facility] History of Past illness Narrative* Problem Noted Date Resolved Date Hypertensive kidney disease with stage 3 chronic kidney disease 11/03/2020 11/05/2020 Diabetes mellitus with renal complications 05/0111/03/2020 PURE HYPERCHOLESTEROLEM 11/27/19 14 DIABETES MELLITUS TYPE II-UNCOMPL 11/26/2013 documented as of this encounter (statuses as of 10/14/2021) [facility] History of Past illness Narrative* Problem Noted Date Resolved Date Hypertensive kidney disease with stage 3 chronic kidney disease 11/03/2020 11/05/2020 Diabetes mellitus with renal complications 05/0111/03/2020 PURE HYPERCHOLESTEROLEM 11/27/19 14 DIABETES MELLITUS TYPE II-UNCOMPL 11/26/2013 documented as of this encounter (statuses as of 11/23/2021) [facility] History of Past illness Narrative* Problem Noted Date Resolved Date Hypertensive kidney disease with stage 3 chronic kidney disease 11/03/2020 11/05/2020 Diabetes mellitus with renal complications 05/0111/03/2020 PURE HYPERCHOLESTEROLEM 11/27/19 14 DIABETES MELLITUS TYPE II-UNCOMPL 11/26/2013 documented as of this encounter (statuses as of 11/23/2021) [facility] History of Past illness Narrative* Problem Noted Date Resolved Date Hypertensive kidney disease with stage 3 chronic kidney disease 11/03/2020 11/05/2020 Diabetes mellitus with renal complications 05/0111/03/2020 PURE HYPERCHOLESTEROLEM 11/27/19 14 DIABETES MELLITUS TYPE II-UNCOMPL 11/26/2013 documented as of this encounter (statuses as of 12/16/2021) [facility] History of Past illness Narrative* Problem Noted Date Resolved Date Hypertensive kidney disease with stage 3 chronic kidney disease 11/03/2020 11/05/2020 Diabetes mellitus with renal complications 05/0111/03/2020 PURE HYPERCHOLESTEROLEM 11/27/19 14 DIABETES MELLITUS TYPE II-UNCOMPL 11/26/2013 documented as of this encounter (statuses as of 01/11/2022) [facility] History of Past illness Narrative* Problem Noted Date Resolved Date Hypertensive kidney disease with stage 3 chronic kidney disease 11/03/2020 11/05/2020 Diabetes mellitus with renal complications 05/0111/03/2020 PURE HYPERCHOLESTEROLEM 11/27/19 14 DIABETES MELLITUS TYPE II-UNCOMPL 11/26/2013 documented as of this encounter (statuses as of 01/11/2022) [facility] History of Past illness Narrative* Problem Noted Date Resolved Date Hypertensive kidney disease with stage 3 chronic kidney disease 11/03/2020 11/05/2020 Diabetes mellitus with renal complications 05/0111/03/2020 PURE HYPERCHOLESTEROLEM 11/27/19 14 DIABETES MELLITUS TYPE II-UNCOMPL 11/26/2013 documented as of this encounter (statuses as of 03/02/2022) [facility] of Past illness Narrative* Problem Noted Date Resolved Date Hypertensive kidney disease with stage 3 chronic kidney disease 11/03/2020 11/05/2020 Diabetes mellitus with renal complications 05/0111/03/2020 PURE HYPERCHOLESTEROLEM 11/27/19 14 DIABETES MELLITUS TYPE II-UNCOMPL 11/26/2013 documented as of this encounter (statuses as of 03/02/2022) [facility] of Past illness Narrative* Problem Noted Date Resolved Date Hypertensive kidney disease with stage 3 chronic kidney disease 11/03/2020 11/05/2020 Diabetes mellitus with renal complications 05/0111/03/2020 PURE HYPERCHOLESTEROLEM 11/27/19 14 DIABETES MELLITUS TYPE II-UNCOMPL 11/26/2013 documented as of this encounter (statuses as of 04/11/2022) [facility] of Past illness Narrative* Problem Noted Date Resolved Date Hypertensive kidney disease with stage 3 chronic kidney disease 11/03/2020 11/05/2020 Diabetes mellitus with renal complications 05/0111/03/2020 PURE HYPERCHOLESTEROLEM 11/27/19 14 DIABETES MELLITUS TYPE II-UNCOMPL 11/26/2013 documented as of this encounter (statuses as of 05/27/2022) [facility] History of Past illness Narrative* Problem Noted Date Diagnosed Date Resolved Date Hypertensive kidney disease with stage 3 chronic kidney disease 11/03/2020 11/05/2020 Diabetes mellitus with renal complications 05/01/2014 11/03/2020 PURE HYPERCHOLESTEROLEM 07/09/2013 DIABETES MELLITUS TYPE II-UNCOMPL 11/26/2013 documented as of this encounter (statuses as of 11/25/2022) [facility] of Past illness Narrative* Problem Noted Date Diagnosed Date Resolved Date Hypertensive kidney disease with stage 3 chronic kidney disease 11/03/2020 11/05/2020 Diabetes mellitus with renal complications 05/01/2014 11/03/2020 PURE HYPERCHOLESTEROLEM 11/12 DIABETES MELLITUS TYPE II-UNCOMPL 11/26/2013 documented as of this encounter (statuses as of 04/08/2023) [facility] of Past illness Narrative* Problem Noted Date Diagnosed Date Resolved Date Hypertensive kidney disease with stage 3 chronic kidney disease 11/03/2020 11/05/2020 Diabetes mellitus with renal complications 05/01/2014 11/03/2020 PURE HYPERCHOLESTEROLEM 11/12 DIABETES MELLITUS TYPE II-UNCOMPL 11/26/2013 documented as of this encounter (statuses as of 04/08/2023) [facility] CampusDis[facility] summary Author Pieter Morgan [facility] Note Date/Time August 02, 2024 1:1 6pm [facility] Medical Records Department [address] [place] [address] Emergency Department Summary 08/02/24 MR#: [id number] Acct: [id number] Name: LINDSAY ACUNA Rep #:[id number] : [...] the EMR. states they returned home from [facility] about 1.5-2 weeks ago, and they both had colds. He is better, but she is "on round 2." [facility] Medical History Paroxysmal atrial fibrillation with [...] 71.4 H Lymph % (Auto) 17.9 L [place] % (Auto) 8.9 Eos % (Auto) 1.0 [...] on 08/02/2024 at 1250 hours. Reading Location: [facility] Head/Neck CTA 08/02/24 12:24 IMPRESSION: RIGHT CAROTID: Mild degree of calcific plaque at the origin of the right internal carotid artery. LEFT CAROTID: Mild degree of calcific plaque at the origin of the left internal carotid artery. VERTEBRALS: Dominant left vertebral artery INTRACRANIAL: Unremarkable Other impression: No significant stenosis seen. Reading Location: [place] [address] Rhythm Strip Rhythm Strip: A-fib Rate: 90 Ectopy: None EKG Initial EKG: Attestation: I personally reviewed and interpreted this EKG as follows: Interpretation: No Acute Injury Pattern, Atrial Fibrillation and Non-Specific ST Changes Management Discussion w/another healthcare provider: Tire Tester ([facility] stroke neurology) and Radiologist Stroke Documentation [...] min), Including time spent:, Discussing w/Patient &/or Family/Registered Associate, Discussing w/Consultants, Arranging Admission or Transfer and [...] MD [Primary Care Provider] - Print Language: Togolese Disposition Disposition: Acute Care Hospital Discharge Location: [facility] What to do if you have Problems For any increased pain, shortness of breath, bleeding, nausea or vomiting, chestpain, or any unexpected problems, contact your Primary Care Provider. Call [facility] ([phone]) or report to the closest Emergency Room. Call 911 if necessary. 08/02/24 1316 <Electronically signed by Pieter Morgan MD> Cosigner Signature (if applicable): CC: Dr. Kameron Caruso MD ~ Signed [facility] Work Phone: Evaluation note* Diagnosis Need for vaccination- Primary Need for prophylactic vaccination and inoculation against unspecified single disease documented in this encounter [facility] note* Diagnosis Type 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, unspecified CKD stage, unspecified whether [facility] insulin use (HCC)- Primary Essential hypertension, benign Hyperlipidemia, unspecified hyperlipidemia type Stage 3b chronic kidney disease (HCC) Hypothyroidism, unspecified type Memory loss documented in this encounter [facility] note* Diagnosis Type 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, unspecified CKD stage, unspecified whether [place] insulin use (HCC)- Primary documented in this encounter [facility] note* Diagnosis Hyperlipidemia, unspecified hyperlipidemia type Essential hypertension, benign Type 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, unspecified CKD stage, 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) documented in this encounter [facility] note* Diagnosis Type 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, unspecified CKD stage, 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) Essential hypertension, benign Hyperlipidemia, unspecified hyperlipidemia type documented in this encounter [facility] note* Diagnosis Acute midline low back pain without sciatica- Primary documented in this encounter [facility] note* Diagnosis Type 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, unspecified CKD stage, 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)- Primary documented in this encounter [facility] note* Diagnosis Essential hypertension, benign- Primary Hypothyroidism, unspecified type Type 2 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, without long-term current use of insulin (HCC) Hyperlipidemia, unspecified hyperlipidemia type Chronic kidney disease, stage 3a (HCC) Edema of left lower leg Wellness examination documented in this encounter [facility] note* Diagnosis Type 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, unspecified CKD stage, 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) documented in this encounter [facility] note* Diagnosis Allergic contact dermatitis due to plant- Primary Contact dermatitis and other eczema due to plants (except food) [facility] Diagnosis Rash- Primary Rash and other nonspecific skin eruption documented in this encounter [facility] note* Diagnosis Type 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, unspecified CKD stage, unspecified whether [facility] insulin use (HCC)- Primary Essential hypertension, benign Chronic kidney disease, stage 3a (HCC) Hyperlipidemia, unspecified hyperlipidemia type Hypothyroidism, unspecified type Edema of left lower leg Memory loss documented in this encounter [facility] note* Diagnosis Essential hypertension, benign- [...] unspecified type (HCC) documented in this encounter [facility] note* Diagnosis Atrial fibrillation, unspecified type (HCC)- Primary Hypothyroidism, unspecified type Need for malaria prophylaxis documented in this encounter [facility] note* Diagnosis History of traveler's diarrhea- Primary Personal history of other diseases of digestive system [facility]* Diagnosis History of traveler's diarrhea Personal history of other diseases of digestive system documented in this encounter [facility] noteNo assessment information availableWTriHealth Work Phone: Evaluation note* Diagnosis Acute ischemic right MCA stroke- Primary Unspecified cerebral artery occlusion with cerebral infarction Cerebrovascular accident (CVA), unspecified mechanism Renal disease (High Serum Creatinine) Unspecified disorder of kidney and ureter Type 2 diabetes mellitus with hyperglycemia Type II or unspecified type diabetes mellitus without mention of complication, not stated as uncontrolled [facility] Narrative No data available for this section Tyler Tariqwn Reason for referral (narrative)* Outpatient Procedure (Routine) - Pending Review Specialty Diagnoses / Procedures Referred By Contac t Referred To Contact [facility] [place] Diagnoses Atrial fibrillation, unspecified type (HCC) Procedures ECHO ECHO TTHRC R-T 2D W/WOM-MODE COMPL SPEC&COLR D Kameron Caruso MD [address] [place] [address] [facility] [place] [address] [place] [address] Referral ID Status Reason Start Date Expiration Date Visits Requested Visits Authorized [id number] Pending Review Auto-Generat ed Referral 05/31/2024 05/31/2025 1 1 * Outpatient Procedure (Routine) - New Request Specialty Diagnoses / Procedures Referred By Contac t Referred To Contact [facility] [place] Diagnoses Irregular heart beat Procedures ECG COMPLETE ECG ROUTINE ECG W/LEAST 12 LDS W/I&R Kameron Caruso MD [address] [place] [address] [facility] [place] [address] [place] [address] Referral ID Status Reason Start Date Expiration Date Visits Requested Visits Authorized [id number] New Request Auto-Generat ed Referral 05/31/2024 05/31/2025 1 1 [facility] for referral (narrative)No reason for referral information availableWTriHealth Work Phone: Reason for visit Narrative* Auth/Cert Specialty Diagnoses / Procedures Referred By Contac t Referred To Contact Diagnoses Acute ischemic right MCA stroke Cerebrovascular Accident (Level A Ishemic Stroke) Prema Rodgers MD [address] [place] [address] Phone: tel: fax: [facility] [address] [place] [address] Referral ID Status Reason Start Date Expiration Date Visits Re quested Visits Authorized [id number] 1 1 [facility] Summary Purpose Family History No Family History Records Found Relationship Condition Age at Onset Recorded Date/T monse mother Diabetes mellitus Unknown Hypertension Unknown Psychiatric disorder Unknown grandmother Malignant neoplasm Unknown sister Disorder of thyroid Unknown Advance Directives No Advanced Directives Records FoundDocuments on File Type Date Recorded 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 Directives and Living Will Power of Life Enrichment Director Latest Code Status on File Code Status Date Activated Date Inactivated Comments Full Code 01/09/2019 10:16 AM Latest Code Status on File Code Status Date Activated Date Inactivated Comments Full Code 10/16/2019 9:16 AM Full Code 01/09/2019 10:16 AM 01/09/2019 2:23 PM Documents on File Type Date Recorded 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 No August 02, 2024 12:46pm Date Activated [...] patient had a polyp identified by on {time:[id number]}. Biopsies {are/were w not:7534} taken. The patient's usual bowel pattern is {bowel pattern:45676}. Bowel movements {bowel changes:73978} . {abd pain:21789}. The patient has noted{bleeding with BM:22370}. The patient {does/do/not:01302} have a family history of colon polyps. The patient {does/do/not:34474} have a family history of colon cancer. [...] AFIB ([place]) October 02, 2024 9:29a m Chief Complaint Admit Date stroke alert August 02, 2024 12: 23pm LAB WORK September 10, 2024 5:0 0am ADMISSION EXAM September 10, 2024 12: 49pm ADMISSION EXAM September 11, 2024 3:0 8pm LAB WORK September 17, 2024 5:00am LABWORK September 24, 2024 5:00a m LAB WORK September 29, 2024 5:44p m LAB WORK October 01, 2024 5:00a m AFIB ([place]) October 02, 2024 9:29a m LAB WORK October 08, 2024 5:00a m MONTHLY EXAM October 09, 2024 5:45p m [facility] LAB WORK October 15, 2024 5:0 0am [facility] LAB WORK October 22, 2024 5: 00am [facility] LAB WORK October 23, 2024 5: 00am [facility] LAB WORK October 29, 2024 5: 00am Reason for Visit Admit Date Acute ischemic right MCA stroke September 9:29am Essential hypertension October 02, 2024 9: 29am Hyperlipidemia October 02, 2024 9:29a m Paroxysmal atrial fibrillation with RVR October 02, 2024 9:29am Chief Complaint Admit Date stroke alert August 02, 2024 12: 23pm LAB WORK September 10, 2024 5:0 0am ADMISSION EXAM September 10, 2024 12: 49pm ADMISSION EXAM September 11, 2024 3:0 8pm LAB WORK September 17, 2024 5:00am LABWORK September 24, 2024 5:00a m LAB WORK September 29, 2024 5:44p m LAB WORK October 01, 2024 5:00a m AFIB ([place]) October 02, 2024 9:29a m LAB WORK October 08, 2024 5:00a m MONTHLY EXAM October 09, 2024 5:45p m [facility] LAB WORK October 15, 2024 5:0 0am [facility] LAB WORK October 22, 2024 5: 00am [facility] LAB WORK October 23, 2024 5: 00am [facility] LAB WORK October 29, 2024 5: 00am NEW CONCERN October 30, 2024 6:00 pm [facility] LAB WORK November 12, 2024 5:0 0am Chief Complaint Admit Date stroke alert August 02, 2024 12: 23pm LAB WORK September 10, 2024 5:0 0am ADMISSION EXAM September 10, 2024 12: 49pm ADMISSION EXAM September 11, 2024 3:0 8pm LAB WORK September 17, 2024 5:00am LABWORK September 24, 2024 5:00a m LAB WORK September 29, 2024 5:44p m LAB WORK October 01, 2024 5:00a m AFIB ([place]) October 02, 2024 9:29a m LAB WORK October 08, 2024 5:00a m MONTHLY EXAM October 09, 2024 5:45p m [facility] LAB WORK October 15, 2024 5:0 0am [facility] LAB WORK October 22, 2024 5: 00am NEW CONCERN October 22, 2024 12:4 5pm [facility] LAB WORK October 23, 2024 5: 00am [facility] LAB WORK October 29, 2024 5: 00am NEW CONCERN October 30, 2024 6:00 pm [facility] LAB WORK November 12, 2024 5:0 0am Chief Complaint Admit Date stroke alert August 02, 2024 12: 23pm LAB WORK September 10, 2024 5:0 0am ADMISSION EXAM September 10, 2024 12: 49pm ADMISSION EXAM September 11, 2024 3:0 8pm LAB WORK September 17, 2024 5:00am LABWORK September 24, 2024 5:00a m LAB WORK September 29, 2024 5:44p m LAB WORK October 01, 2024 5:00a m [facility] October 02, 2024 9:29a m LAB WORK October 08, 2024 5:00a m MONTHLY EXAM October 09, 2024 5:45p m [facility] LAB WORK October 15, 2024 5:0 0am [facility] LAB WORK October 22, 2024 5: 00am NEW CONCERN October 22, 2024 12:4 5pm [facility] LAB WORK October 23, 2024 5: 00am [facility] LAB WORK October 29, 2024 5: 00am FU VISIT October 29, 2024 7:15 pm NEW CONCERN October 30, 2024 6:00 pm [facility] LAB WORK November 12, 2024 5:0 0am Additional Source Comments INFORMATION SOURCE (unrecogn ized section and content) DATE CREATED AUTHOR 08/31/2018 [facility] ([place]) DATE CREATED AUTHOR AUTHOR'S ORGANIZ ATION 10/18/2019 [facility] DATE CREATED AUTHOR AUTHOR'S ORGANIZ ATION 08/04/2024 [facility] DATE CREATED AUTHOR AUTHOR'S ORGANIZ ATION 08/07/2024 [facility] DATE CREATED AUTHOR AUTHOR'S ORGANIZ ATION 09/01/2024 [facility] DATE CREATED AUTHOR AUTHOR'S ORGANIZ ATION 10/13/2024 [facility] DATE CREATED AUTHOR AUTHOR'S ORGANIZ ATION 11/08/2024 [facility] DATE CREATED AUTHOR AUTHOR'S ORGANIZ ATION 12/02/2024 [facility] Source Comments (unrecognize d section and content) In the event this informatio n is protected by the Federal Confidentiality of Alcohol and Drug Abuse Patient Records regulations: The Federal rules restrict any use of the information to criminally investigate or prosecute any alcohol or drug abuse patient.[facility] the event this information is protected by the Federal Confidentiality of Alcohol and Drug Abuse Patient Records regulations: The Federal rules restrict any use of the information to criminally investigate or prosecute any alcohol or drug abuse patient.[facility] CampusIn the event this information is protected by the Federal Confidentiality of Alcohol and Drug Abuse Patient Records regulations: The Federal rules restrict any use of the information to criminally investigate or prosecute any alcohol or drug abuse patient.[facility] CampusIn the event this information is protected by the Federal Confidentiality of Alcohol and Drug Abuse Patient Records regulations: The Federal rules restrict any use of the information to criminally investigate or prosecute any alcohol or drug abuse patient.[facility] CampusIn the event this information is protected by the Federal Confidentiality of Alcohol and Drug Abuse Patient Records regulations: The Federal rules restrict any use of the information to criminally investigate or prosecute any alcohol or drug abuse patient.[facility] CampusIn the event this information is protected by the Federal Confidentiality of Alcohol and Drug Abuse Patient Records regulations: The Federal rules restrict any use of the information to criminally investigate or prosecute any alcohol or drug abuse patient.[facility] CampusIn the event this information is protected by the Federal Confidentiality of Alcohol and Drug Abuse Patient Records regulations: The Federal rules restrict any use of the information to criminally investigate or prosecute any alcohol or drug abuse patient.[facility] CampusIn the event this information is protected by the Federal Confidentiality of Alcohol and Drug Abuse Patient Records regulations: The Federal rules restrict any use of the information to criminally investigate or prosecute any alcohol or drug abuse patient.[facility] CampusIn the event this information is protected by the Federal Confidentiality of Alcohol and Drug Abuse Patient Records regulations: The Federal rules restrict any use of the information to criminally investigate or prosecute any alcohol or drug abuse patient.[facility] CampusIn the event this information is protected by the Federal Confidentiality of Alcohol and Drug Abuse Patient Records regulations: The Federal rules restrict any use of the information to criminally investigate or prosecute any alcohol or drug abuse patient.[facility] CampusIn the event this information is protected by the Federal Confidentiality of Alcohol and Drug Abuse Patient Records regulations: The Federal rules restrict any use of the information to criminally investigate or prosecute any alcohol or drug abuse patient.[facility] CampusIn the event this information is protected by the Federal Confidentiality of Alcohol and Drug Abuse Patient Records regulations: The Federal rules restrict any use of the information to criminally investigate or prosecute any alcohol or drug abuse patient.[facility] CampusIn the event this information is protected by the Federal Confidentiality of Alcohol and Drug Abuse Patient Records regulations: The Federal rules restrict any use of the information to criminally investigate or prosecute any alcohol or drug abuse patient.[facility] CampusIn the event this information is protected by the Federal Confidentiality of Alcohol and Drug Abuse Patient Records regulations: The Federal rules restrict any use of the information to criminally investigate or prosecute any alcohol or drug abuse patient.[facility] CampusIn the event this information is protected by the Federal Confidentiality of Alcohol and Drug Abuse Patient Records regulations: The Federal rules restrict any use of the information to criminally investigate or prosecute any alcohol or drug abuse patient.[facility] CampusIn the event this information is protected by the Federal Confidentiality of Alcohol and Drug Abuse Patient Records regulations: The Federal rules restrict any use of the information to criminally investigate or prosecute any alcohol or drug abuse patient.[facility] CampusIn the event this information is protected by the Federal Confidentiality of Alcohol and Drug Abuse Patient Records regulations: The Federal rules restrict any use of the information to criminally investigate or prosecute any alcohol or drug abuse patient.[facility] CampusIn the event this information is protected by the Federal Confidentiality of Alcohol and Drug Abuse Patient Records regulations: The Federal rules restrict any use of the information to criminally investigate or prosecute any alcohol or drug abuse patient.[facility] CampusIn the event this information is protected by the Federal Confidentiality of Alcohol and Drug Abuse Patient Records regulations: The Federal rules restrict any use of the information to criminally investigate or prosecute any alcohol or drug abuse patient.[facility] CampusIn the event this information is protected by the Federal Confidentiality of Alcohol and Drug Abuse Patient Records regulations: The Federal rules restrict any use of the information to criminally investigate or prosecute any alcohol or drug abuse patient.[facility] CampusIn the event this information is protected by the Federal Confidentiality of Alcohol and Drug Abuse Patient Records regulations: The Federal rules restrict any use of the information to criminally investigate or prosecute any alcohol or drug abuse patient.[facility] CampusIn the event this information is protected by the Federal Confidentiality of Alcohol and Drug Abuse Patient Records regulations: The Federal rules restrict any use of the information to criminally investigate or prosecute any alcohol or drug abuse patient.[facility] CampusIn the event this information is protected by the Federal Confidentiality of Alcohol and Drug Abuse Patient Records regulations: The Federal rules restrict any use of the information to criminally investigate or prosecute any alcohol or drug abuse patient.[facility] CampusIn the event this information is protected by the Federal Confidentiality of Alcohol and Drug Abuse Patient Records regulations: The Federal rules restrict any use of the information to criminally investigate or prosecute any alcohol or drug abuse patient.[facility] CampusIn the event this information is protected by the Federal Confidentiality of Alcohol and Drug Abuse Patient Records regulations: The Federal rules restrict any use of the information to criminally investigate or prosecute any alcohol or drug abuse patient.[facility] CampusIn the event this information is protected by the Federal Confidentiality of Alcohol and Drug Abuse Patient Records regulations: The Federal rules restrict any use of the information to criminally investigate or prosecute any alcohol or drug abuse patient.[facility] CampusIn the event this information is protected by the Federal Confidentiality of Alcohol and Drug Abuse Patient Records regulations: The Federal rules restrict any use of the information to criminally investigate or prosecute any alcohol or drug abuse patient.[facility] CampusIn the event this information is protected by the Federal Confidentiality of Alcohol and Drug Abuse Patient Records regulations: The Federal rules restrict any use of the information to criminally investigate or prosecute any alcohol or drug abuse patient.[facility] Reason for Visit (unrecogniz ed section and [...] Comments request for medication Reason Comments [facility] requesting verbal agree to f [facility] Care Teams (unrecognized sec tion and content) Saw Handle Assembler Relationship Specialty Start Date End Date Kameron Caruso MD [address] [place], [place] [id number] PCP - General Family Practice 09/21/15 Saw Handle Assembler Relationship Specialty Start Date End Date Kameron Caruso MD [address] [place], [place] [id number] PCP - General Family Practice 09/21/15 Saw Handle Assembler Relationship Specialty Start Date End Date Kameron Caruso MD [address] [place], [place] [id number] PCP - General Family Practice 09/21/15 Saw Handle Assembler Relationship Specialty Start Date End Date Kameron Caruso MD [address] [facility] [place] [place] [address] PCP - General Family Practice 09/21/15 Saw Handle Assembler Relationship Specialty Start Date End Date Kameron Caruso MD [address] [facility] [place] [place] [address] PCP - General Family Practice 09/21/15 Saw Handle Assembler Relationship Specialty Start Date End Date Kameron Caruso MD [address] [facility] [place] [place] [address] PCP - General Family Practice 09/21/15 Saw Handle Assembler Relationship Specialty Start Date End Date Kameron Caruso MD [address] [facility] [place] [place] [address] PCP - General Family Medicine 09/21/15 Saw Handle Assembler Relationship Specialty Start Date End Date Kameron Caruso MD [address] [facility] [place] [place] [address] PCP - General Family Medicine 09/21/15 Saw Handle Assembler Relationship Specialty Start Date End Date Kameron Caruso MD [address] [facility] [place] [place] [address] PCP - General Family Medicine 09/21/15 Saw Handle Assembler Relationship Specialty Start Date End Date Kameron Caruso MD [address] [facility] [place] [place] [address] PCP - General Family Medicine 09/21/15 Saw Handle Assembler Relationship Specialty Start Date End Date Kameron Caruso MD [address] [facility] [place] [place] [address] PCP - General Family Medicine 09/21/15 Saw Handle Assembler Relationship Specialty Start Date End Date Kameron Caruso MD [address] [facility] [place] [place] [address] PCP - General Family Medicine 09/21/15 Saw Handle Assembler Relationship Specialty Start Date End Date Kameron Caruso MD [address] [place] [address] PCP - General Family Medicine 09/21/15 Saw Handle Assembler Relationship Specialty Start Date End Date Kameron Caruso MD [address] [place] [address] PCP - General Family Medicine 09/21/15 Saw Handle Assembler Relationship Specialty Start Date End Date Kameron Caruso MD [address] [place] [address] PCP - General Family Medicine 09/21/15 Saw Handle Assembler Relationship Specialty Start Date End Date Kameron Caruso MD [address] [place] [address] PCP - General Family Medicine 09/21/15 Emma Sotomayor, JASIEL.SPEECH THERAPIST [address] [place] [address] Special Police Family Medicine 04/21/24 Mj Glover APRN.SPEECH THERAPIST [address] [place] [address] Special Police Family Medicine 04/30/24 Saw Handle Assembler Relationship Specialty Start Date End Date Kameron Caruso MD [address] [place] [address] PCP - General Family Medicine 09/21/15 Emma Sotomayor, JASIEL.SPEECH THERAPIST [address] [place] [address] Special Police Family Medicine 04/21/24 Mj Glover APRN.SPEECH THERAPIST [address] [facility] [place] [address] Special Police Family Medicine 04/30/24 Saw Handle Assembler Relationship Specialty Start Date End Date Kameron Caruso MD [address] [facility] [place] [address] PCP - General Family Medicine 09/21/15 Emma Sotomayor APRN.SPEECH THERAPIST [address] [facility] [place] [address] Special Police Family Medicine 04/21/24 Mj Glover APRN.SPEECH THERAPIST [address] [facility] [place] [address] Special Police Family Medicine 04/30/24 Saw Handle Assembler Relationship Specialty Start Date End Date Kameron Caruso MD [address] [facility] [place] [address] PCP - General Family Medicine 09/21/15 Emma Sotomayor APRN.SPEECH THERAPIST [address] [facility] [place] [address] Special Police Family Medicine 04/21/24 Mj Glover APRN.SPEECH THERAPIST [address] [place] [address] Special Police Family Medicine 04/30/24 Saw Handle Assembler Relationship Specialty Start Date End Date Kameron Caruso MD [address] [place] [address] PCP - General Family Medicine 09/21/15 Emma Sotomayor APRN.SPEECH THERAPIST [address] [place] [address] Special Police Family Medicine 04/21/24 Mj Glover APRN.SPEECH THERAPIST [address] [place] [address] [facility] Saw Handle Assembler Relationship Specialty Start Date End Date Kameron Caruso MD [address] [place] [address] PCP - General Family Medicine 09/21/15 Emma Sotomayor APRN.SPEECH THERAPIST [address] [place] [address] Special Police Family Medicine 04/21/24 Mj Glover MOSAIC TILER.SPEECH THERAPIST [address] [place] [address] [facility] 04/[facility]/24 Saw Handle Assembler Relationship Specialty Start Date End Date Kameron Caruso MD [address] [place] [address] PCP - General Family Medicine 09/21/15 Emma Sotomayor MOSAIC TILER.SPEECH THERAPIST [address] [place] [address] Special Police Family Medicine 04/21/24 Mj Glover APRN.SPEECH THERAPIST [address] [place] [address] [facility] 04/30/24 Team Status: Active Member Role Status Dates Dr. Kameron Caruso MD Primary Care Provider Active Team Status: Inactive Member Role Status Dates Dr. Kameron Caruso MD Primary Care Provider Active Start: August 02, 2024 End: August 02, 2024 Dr. Pieter Morgan MD Emergency Provider Active Start: August 02, 2024 End: August 02, 2024 Saw Handle Assembler Relationship Specialty Start Date End Date Kameron Caruso MD [address] [facility] [place], [place] [address] PCP - General Family Medicine 08/03/24 Saw Handle Assembler Relationship Specialty Start Date End Date Kameron Caruso MD [address] [facility] [place] [place] [address] PCP - General Family Medicine 09/21/15 Emma Sotomayor MOSAIC TILER.SPEECH THERAPIST [address] [facility] [place] [place] [address] Special Police Family Medicine 04/21/24 Mj Glover MOSAIC TILER.SPEECH THERAPIST [address] [facility] [place] [place] [address] Special Police Family Medicine 04/30/24 Team Status: Inactive Member [...] Provider Active Start: September 29, 2024 Safia VAGRAS MD Attending Provider Active Start: September 29, [...] October 02, 2024 End: October 02, 2024 Team Status: Active Member Role/Relationship Status Dates Dr. Kameron Caruso MD Primary Care Provider Active Team Status: Inactive Member Role/Relationship Status Dates Dr. Kameron Caruso MD Primary Care Provider Active Start: August 02, 2024 End: August 02, 2024 Dr. Pieter Morgan MD Attending Provider Active Start: August 02, 2024 End: August 02, 2024 Dr. Pieter Morgan MD Emergency Provider Active Start: August 02, 2024 End: August 02, 2024 Team Status: Active Member Role/Relationship Status Dates Dr. Kameron Caruso MD Primary Care Provider Active Start: September 10, 2024 Safia VARGAS MD Attending Provider Active Start: September 10, 2024 Team Status: Inactive Member Role/Relationship Status Dates Dr. Kameron Caruso MD Primary Care Provider Active Start: September 10, 2024 End: September 10, 2024 Dr. Safia Ruelas MD Attending Provider Active Start: September 10, 2024 End: September 10, 2024 Team Status: Inactive Member Role/Relationship Status Dates Dr. Kameron Caruso MD Primary Care Provider Active Start: September 11, 2024 End: September 11, 2024 Bret Snyder NP, PRICING LEAD-C Attending Provider Active Start: September 11, 2024 End: September 11, 2024 Team Status: Active Member Role/Relationship Status Dates Dr. Kameron Caruso MD Primary Care Provider Active Start: September 17, 2024 Safia VARGAS MD Attending Provider Active Start: September 17, 2024 Team Status: Active Member Role/Relationship Status Dates Dr. Kameron Caruso MD Primary Care Provider Active Start: September 24, 2024 Safia VARGAS MD Attending Provider Active Start: September 24, 2024 Team Status: Active Member Role/Relationship Status Dates Dr. Kameron Caruso MD Primary Care Provider Active Start: September 29, 2024 Safia VARGAS MD Attending Provider Active Start: September 29, 2024 Safia VARGAS MD Referring Provider Active Start: September 29, 2024 Team Status: Active Member Role/Relationship Status Dates Dr. Kameron Caruso MD Primary Care Provider Active Start: October 01, 2024 Safia VARGAS MD Attending Provider Active Start: October 01, 2024 Team Status: Inactive Member Role/Relationship Status Dates Dr. Kameron Caruso MD Primary Care Provider Active Start: October 02, 2024 End: October 02, 2024 Dr. Kameron Caruso MD Referring Provider Active Start: October 02, 2024 End: October 02, 2024 Dr. Mj Benavides MD Attending Provider Active S tart: October 02, 2024 End: October 02, 2024 Team Status: Active Member Role/Relationship Status Dates Dr. Kameron Caruso MD Primary Care Provider Active Start: October 08, 2024 Safia VARGAS MD Attending Provider Active Start: October 08, 2024 Team Status: Inactive Member Role/Relationship Status Dates Dr. Kameron Caruso MD Primary Care Provider Active Start: October 09, 2024 End: October 09, 2024 Bret Snyder NP, [employer]ICING LEAD-C Attending Provider Active Start: October 09, 2024 End: October 09, 2024 Team Status: Active Member Role/Relationship Status Dates Dr. Kameron Caruso MD Primary Care Provider Active Start: October 15, 2024 Safia VARGAS MD Attending Provider Active Start: October 15, 2024 Team Status: Active Member Role/Relationship Status Dates Dr. Kameron Caruso MD Primary Care Provider Active Start: October 22, 2024 Safia VARGAS MD Attending Provider Active Start: October 22, 2024 Team Status: Active Member Role/Relationship Status Dates Dr. Kameron Caruso MD Primary Care Provider Active Start: October 23, 2024 Safia VARGAS MD Attending Provider Active Start: October 23, 2024 Team Status: Active Member Role/Relationship Status Dates Dr. Kameron Caruso MD Primary Care Provider Active Start: October 29, 2024 Safia VARGAS MD Attending Provider Active Start: October 29, 2024 Team Status: Active Member Role/Relationship Status Dates Dr. Kameron Caruso MD Primary Care Provider Active Start: November 05, 2024 Safia VARGAS MD Attending Provider Active Start: November 05, 2024 Team Status: Active Member Role/Relationship Status Dates Dr. Kameron Caruso MD Primary Care Provider Active Start: November 12, 2024 Safia VARGAS MD Attending Provider Active Start: November 12, 2024 Team Status: Active Member Role/Relationship Status Dates Dr. Kameron Caruso MD Primary Care Provider Active Start: November 19, 2024 Safia VARGAS MD Attending Provider Active Start: November 19, 2024 Team Status: Active Member Role/Relationship Status Dates Dr. Kameron Caruso MD Primary Care Provider Active Start: November 25, 2024 Safia VARGAS MD Attending Provider Active Start: November 25, 2024 Team Status: Active Member Role/Relationship Status Dates Dr. Kameron Caruso MD Primary Care Provider Active Start: November 26, 2024 Safia VARGAS MD Attending Provider Active Start: November 26, 2024 Team Status: Inactive Member Role/Relationship Status Dates Dr. Kameron Caruso MD Primary Care Provider Active Start: October 30, 2024 End: October 30, 2024 Bret Snyder NP, NP-C Attending Provider Active Start: October 30, 2024 End: October 30, 2024 Team Status: Active Member Role/Relationship Status Dates Dr. Kameron Caruso MD Primary Care Provider Active Start: November 05, 2024 Safia VARGAS MD Attending Provider Active Start: November 05, 2024 Team Status: Active Member Role/Relationship Status Dates Dr. Kameron Caruso MD Primary Care Provider Active Start: November 12, 2024 Safia VARGAS MD Attending Provider Active Start: November 12, 2024 Team Status: Active Member Role/Relationship Status Dates Dr. Kameron Caruso MD Primary Care Provider Active Start: November 19, 2024 Safia VARGAS MD Attending Provider Active Start: November 19, 2024 Team Status: Active Member Role/Relationship Status Dates Dr. Kameron Caruso MD Primary Care Provider Active Start: November 25, 2024 Safia VARGAS MD Attending Provider Active Start: November 25, 2024 Team Status: Active Member Role/Relationship Status Dates Dr. Kameron aCruso MD Primary Care Provider Active Start: November 26, 2024 Safia VARGAS MD Attending Provider Active Start: November 26, 2024 Team Status: Inactive Member Role/Relationship Status Dates Dr. Kameron Caruso MD Primary Care Provider Active Start: October 22, 2024 End: October 22, 2024 Bret Snyder NP, [employer]-C Attending Provider Active Start: October 22, 2024 End: October 22, 2024 Team Status: Active Member Role/Relationship Status Dates Dr. Kameron Caruso MD Primary Care Provider Active Start: October 23, 2024 Safia VARGAS MD Attending Provider Active Start: October 23, 2024 Team Status: Active Member Role/Relationship Status Dates Dr. Kameron Caruso MD Primary Care Provider Active Start: October 29, 2024 Safia VARGAS MD Attending Provider Active Start: October 29, 2024 Team Status: Inactive Member Role/Relationship Status Dates Dr. Kameron Caruso MD Primary Care Provider Active Start: October 30, 2024 End: October 30, 2024 Bret Snyder PRICING LEAD, [employer]AD-C Attending Provider Active Start: October 30, 2024 End: October 30, 2024 Team Status: Active Member Role/Relationship Status Dates Dr. Kameron Caruso MD Primary Care Provider Active Start: November 05, 2024 Safia VARGAS MD Attending Provider Active Start: November 05, 2024 Team Status: Active Member Role/Relationship Status Dates Dr. Kameron Caruso MD Primary Care Provider Active Start: November 12, 2024 Safia VARGAS MD Attending Provider Active Start: November 12, 2024 Team Status: Active Member Role/Relationship Status Dates Dr. Kameron Caruso MD Primary Care Provider Active Start: November 19, 2024 Safia VARGAS MD Attending Provider Active Start: November 19, 2024 Team Status: Active Member Role/Relationship Status Dates Dr. Kameron Caruso MD Primary Care Provider Active Start: November 25, 2024 Safia VARGAS MD Attending Provider Active Start: November 25, 2024 Team Status: Active Member Role/Relationship Status Dates Dr. Kameron Caruso MD Primary Care Provider Active Start: November 26, 2024 Safia VARGAS MD Attending Provider Active Start: November 26, 2024 Team Status: Inactive Member Role/Relationship Status Dates Dr. Kameron Caruso MD Primary Care Provider Active Start: October 29, 2024 End: October 29, 2024 Dr. Safia Ruelas MD Attending Provider Active Start: October 29, 2024 End: October 29, 2024 Team Status: Inactive Member Role/Relationship Status Dates Dr. Kameron Caruso MD Primary Care Provider Active Start: October 30, 2024 End: October 30, 2024 Bret Snyder PRICING LEAD, [employer]ING [employer]AD-C Attending Provider Active Start: October 30, 2024 End: October 30, 2024 Team Status: Active Member Role/Relationship Status Dates Dr. Kameron Caruso MD Primary Care Provider Active Start: November 05, 2024 Safia VARGAS MD Attending Provider Active Start: November 05, 2024 Team Status: Active Member Role/Relationship Status Dates Dr. Kameron Caruso MD Primary Care Provider Active Start: November 12, 2024 Safia VARGAS MD Attending Provider Active Start: November 12, 2024 Team Status: Active Member Role/Relationship Status Dates Dr. Kameron Caruso MD Primary Care Provider Active Start: November 19, 2024 Safia VARGAS MD Attending Provider Active Start: November 19, 2024 Team Status: Active Member Role/Relationship Status Dates Dr. Kameron Caruso MD Primary Care Provider Active Start: November 25, 2024 Safia VARGAS MD Attending Provider Active Start: November 25, 2024 Team Status: Active Member Role/Relationship Status Dates Dr. Kameron Caruso MD Primary Care Provider Active Start: November 26, 2024 Safia VARGAS MD Attending Provider Active Start: November 26, 2024 (unrecognized sect ion and content) No Status Records Found Goals (unrecognized section and content) Goals may be documented in a n alternate section No data available for this sectionGoals may be documented in an alternate sectionGoals may be documented in an alternate sectionGoals may be documented in an alternate sectionGoals may be documented in an alternate sectionGoals may be documented in an alternate [...] RN) 0017 (New Feeding/Supplement - Provider: Shanna Catalan, ZOE)[id number] (Hold - Provider: Robson Steel RN - [...] glucose is greater than 200mg/dl, then notify greenhouse manager. And BLOOD GLUCOSE (POC DEVICE) (CANCELED) [...] at 1301, Until Specified, Who to Notify: Product Development Director, For all Blood Glucose LESS THAN 80 mg/dl, notify Product Development Director after treatment per Hypoglycemia in Non- [...] BE BASED ON THE PRIMARY CLINICAL RECORDS. [facility]. provides no warranty or guarantee of the accuracy or completeness of information in this document.
[2024-12-03 08:42] LABS: Hematocrit 40.0 % (37-47); Hemoglobin 12.9 g/dL (12.0-15.0); Immature Granulocytes Count 0.030 X10^3/uL (0.0-0.0); Mean Corp Hgb Conc 32.3 g/dL (32-36); Mean Corpuscular Volume 91.3 fL (81-99); Mean Platelet Vol. 11.6 fl (6.2-12.0); NRBC Flagged by Analyzer 0 % (0-5); Platelet Count 280 K/mm3 (150-450); RBC Distribution Width CV 14.1 % (11.6-14.6); RBC Distribution Width SD 47.9 fl (35.1-43.9); Red Blood Count 4.38 M/mm3 (4.2-5.4); White Blood Count 9.9 K/mm3 (4.4-11.0)
[2024-12-03 09:08] LABS: Anion Gap 14 (5-15); BUN 25 mg/dL (4-19); BUN/Creat Ratio 28.4 RATIO (10-20); Calcium,Total 9.6 mg/dL (7.6-11.0); Carbon Dioxide 23.3 mmol/L (21.0-32.0); Chloride 102 mmol/L (98-108); Glucose 77 mg/dL (70-99); Potassium 4.0 mmol/L (3.3-5.1)
== END ==
LOC: OLS.WHLTCC 05:00
PROVIDERS: PCP Family Medicine; Visit Provider Internal Medicine
DX: I10 Essential (primary) hypertension (principal); I69.354 Hemiplegia and hemiparesis following cerebral infarction affecting left non-dominant side; I69.391 Dysphagia following cerebral infarction; E11.9 Type 2 diabetes mellitus without complications; E03.9 Hypothyroidism, unspecified
CPT/HCPCS: 36415; 80048; 84443; 85025

== ENCOUNTER → 2024-12-10 06:20 | Outpatient (REF) | payer MEDICARE, SELFPAY ==
[2024-12-10 07:46] LABS: Hematocrit 38.8 % (37-47); Hemoglobin 12.3 g/dL (12.0-15.0); Immature Granulocytes Count 0.040 X10^3/uL (0.0-0.0); Mean Corp Hgb Conc 31.7 g/dL (32-36); Mean Corpuscular Volume 93.3 fL (81-99); Mean Platelet Vol. 12.1 fl (6.2-12.0); NRBC Flagged by Analyzer 0 % (0-5); Platelet Count 247 K/mm3 (150-450); RBC Distribution Width CV 13.7 % (11.6-14.6); RBC Distribution Width SD 46.8 fl (35.1-43.9); Red Blood Count 4.16 M/mm3 (4.2-5.4); White Blood Count 8.6 K/mm3 (4.4-11.0)
[2024-12-10 08:01] LABS: Anion Gap 15 (5-15); BUN 21 mg/dL (4-19); BUN/Creat Ratio 25.6 RATIO (10-20); Calcium,Total 9.1 mg/dL (7.6-11.0); Carbon Dioxide 21.7 mmol/L (21.0-32.0); Chloride 101 mmol/L (98-108); Glucose 149 mg/dL (70-99); Potassium 3.8 mmol/L (3.3-5.1)
== END ==
LOC: OLS.WHLTCC 06:20
PROVIDERS: PCP Family Medicine; Visit Provider Internal Medicine
DX: I10 Essential (primary) hypertension (principal); I69.354 Hemiplegia and hemiparesis following cerebral infarction affecting left non-dominant side; I69.391 Dysphagia following cerebral infarction; E11.9 Type 2 diabetes mellitus without complications
CPT/HCPCS: 36415; 80048; 85025

== ENCOUNTER → 2024-12-17 05:00 | Outpatient (REF) | payer MEDICARE, SELFPAY ==
--- OUTSIDE RECORDS SUMMARY | 2024-12-17 04:31 | XMS RPT_ITS | CCD ---
Author Organization [facility] Care Team Providers Care Legal Administrative Assistant Name Role Phone KETTY DOWNS Attending Unavailable [...] Kameron Caruso MD Primary Care Provider Светлана FIRE MANAGER.Emma TUCKER Unavailable Saurav FIRE MANAGER.Mj TUCKER Unavailable JUVENTINO ROGERS Attending Unavailable JUVENTINO ROGERS Admitting Unavailable CATA ALFRED Attending Unavailable CATA ALFRED Admitting Unavailable Dr. Kameron Caruso MD Primary Care Provider Dr. Pieter Morgan MD Emergency Provider Kameron Caruso MD Primary Care Provider Светлана FIRE MANAGER.Emma TUCKER Unavailable Unavail able KAMERON CARUSO Referring Unavailable KAMERON CARUSO Primary Care Unavailable KAMERON CARUSO Attending Unavailable KAMERON CARUSO Primary Care Unavailable EMMA SOTOMAYOR Attending Unavailable ZULY, KAMERON Beebe Primary Care Unavailable ELDERBROSMITH, KAMERON Beebe Primary Care Unavailable ELDERBROSMITH, KAMERON Beebe Primary Care Unavailable ELDERBROSMITH, KAMERON Beebe Referring Unavailable ELDERBROCK, KAMERON Beebe Primary Care Unavailable ELDERBROSMITH, KAMERON Beebe Attending Unavailable ELDERBROCK, KAMERON Beebe Primary Care Unavailable ELDERBROCK, KAMERON Beebe Referring Unavailable ELDERBROCK, KAMERON Beebe Primary Care Unavailable ZULY, KAMERON Beebe Attending Unavailable ZULY, KAMERON Beebe Primary Care Unavailable ZULY LAWSON, DR MELO Primary Care Physician Cathy LAWSON, Dr. Stapleton Attending Provider Safia Ruelas MD Attending Provider Unavailjair Caruso MD, Dr. Melo Referring Provider Makayla LAWSON, Dr. Barker Attending Provider ZULY LAWSON, DR MELO Primary Care Unavailab le SCHEBEULAH PALMER, SILVINO Admitting Unavailable SCHEATZSHITAL PALMER, SILVINO Attending Unavailable BRYON LAWSON, DR REECE Consulting Unavailab shital HUTTON DO, NANDO Consulting Unavailable SUDARSHAN ARTN-MULTIFOCAL BUTTON GRINDER, AMI Hwang Consulting Unavaila ari GIBSON PhD, MATTHEW Zamudio Consulting Unavailable CHRISTOS VOSS Attending Unavailable CONSULT, GASTROENTEROLOGY Consulting PIETER Wolf Referring Unavailable PREMA RAMOS Admitting Unavailable KAMERON CARUSO Primary Care Unavailable RICHARD MEJIA Referring Unavailable LUCINDA PEACOCK Attending Unavailable LUCINDA PEACOCK Admitting Unavailable Jessenia LAWSON, Dr. Baig Attending Provider Claudio ACUTE CARE NURSE-CBret Attending Provider Safia Ruelas MD Referring Provider UnavailMj Spencer Attending Unavailable Kameron Caruso Primary Care Unavailable Kameron Caruso Referring Unavailable Safia Ruelas Attending Unavailable Kameron Caruso Primary Care Unavailable Bret Snyder NP Attending Unavailable Kameron Caruso Primary Care Unavailable Kaemron Caruso Primary Care Unavailable Bret Snyder NP Attending Unavailable Safia Vanegas Attending Unavailabl e Kameron Caruso Primary Care Unavailable Zuly, Kameron Primary Care Unavailable Safia Vanegas Attending Unavailabl e Oleghe OLS, Efewongbe Referring Unavailabl e Elderbrock, Kameron Primary Care Unavailable Oleghe OLS, Efewongbe Attending Unavailabl e Oleghe OLS, Efewongbe Attending Unavailabl e Elderbrock, Kameron Primary Care Unavailable Oleghe OLS, Efewongbe Attending Unavailabl e Elderbrock, Kameron Primary Care Unavailable Oleghe OLS, Efewongbe Attending Unavailabl e Elderbrock, Kameron Primary Care Unavailable Elderbrock, Kameron Primary Care Unavailable Claudio ACUTE CARE NURSE, Bret Attending Unavailable Elderbrock, Kameron Primary Care Unavailable Oleghe, Efewongbe Attending Unavailable Elderbrock, Kameron Primary Care Unavailable Silverioton ACUTE CARE NURSE, Bret Attending Unavailable Oleghe OLS, Efewongbe Attending Unavailabl [...] Kameron Primary Care Unavailable Oleghe OLS, Efewongbe Referring Unavailabl e Elderbrock, Kameron Primary Care Unavailable Oleghe OLS, Efewongbe Attending Unavailabl e Allergies Allergy Classification Reported Allergen(s) Allergy Type Date of Onset Reaction(s) Facility (2 sources) Sulfonamides (Antibiotic) Propensity to adverse reactions to drug 6 Other (See Comments) [place], [place] (2 sources) Other Propensity to adverse reactions 6 Shortness Of Breath [place], [place] (20 sources) Benzocaine; Translations: [BENZOCAINE] Drug Allergy 6 Rash [facility] Work Phone: (20 sources) Cocaine; Translations: [COCAINE] Drug Allergy 9 Inverted T waves [facility] Work Phone: (20 sources) Sulfonamides (Antibiotic); Translations: [SULFA (SULFONAMIDE ANTIBIOTICS)] Propensity to adverse reactions 6 Intolerance [facility] Work Phone: (20 sources) Perfumes; Translations: [PERFUMES] Propensity to adverse reactions 6 Shortness of Breath [facility] Work Phone: (6 sources) Sulfonamides (Antibiotic) Allergy to substance 5 Unknown [facility] (8 sources) perfume; Translations: [perfume] Allergy to substance 5 Shortness of breath [facility] (1 source) Cocaine; Translations: [cocaine nasal] Drug Allergy [facility] (1 source) Codeine; Translations: [codeine] Drug Allergy Pharyngeal swelling (finding) [facility] (1 source) Sulfonamide; Translations: [sulfa drugs] Drug allergy [facility] (1 source) Benzocaine Drug Allergy 5 [facility] Repository (1 source) Cocaine Drug Allergy 5 [facility] Rep[facility] (1 source) Sulfonamides (Antibiotic) Drug allergy (disorder) 5 [facility] Medications Current Medications Medication Drug [...] mg/ml topical lotion (20 sources) Corticosteroid Start: 014 Betamethasone Dipropionate 0.05 % lotion Indications: Psoriasis [...] kidney disease, unspecified CKD stage, unspecified whether fci insulin use (HCC) , Type 2 diabetes [...] oral tablet (1 source) alpha-Adrenergic Shea, beta-Adrenergic Seha Start: 2024 End: 2024 cefTRIAXone 1000 mg [...] kidney disease, unspecified CKD stage, 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] 08-02-2024 Episodic Other aftercare (1 source) jail (current) use of aspirin; Translations: [terminal gauger supervisor (current) use of aspirin] Onset: 5 Episodic Other aftercare (1 source) jail (current) use of anticoagulants; Translations: [jail (current) use of anticoagulants] Onset: 5 Episodic Other aftercare (1 source) terminal gauger supervisor (current) use of oral hypoglycemic drugs; Translations: [terminal gauger supervisor (current) use of oral hypoglycemic drugs] Onset: [...] unspecified] Onset: 5 Episodic Other gastrointestinal disorders (2 sources) Diarrhea, unspecified; Translations: [Diarrhea, unspecified] Onset: 5 [...] Range Facility Absolute lymphocyte countOrd ered By: Leonidesdesireeskye Griderbonimelanie on 11-26-2024 Lymphocytes Auto (Unsp spec) [#/Vol] 2.99 10*3/uL 0.83-4.51 [facility] Absolute neutrophil countOrd ered By: Leonidesjosé antonio Cheobonimelanie on 11-26-2024 Neutrophils (Bld) [#/Vol] 4.2 10*3/uL 2.0-7.7 [facility] Anion gap in Serum or Plasma Ordered By: Safia Ruelas on 11-26-2024 Anion gap [Moles/Vol] 13 mmol/L - [facility] Automated lymphocyte count a s percentage of total leukocytesOrdered By: Safia Ruelas on 11-26-2024 Lymphocytes/100 WBC Auto (Unsp spec) 37.1 % 19-41 [facility] BUN/creatinine ratioOrdered By: sherry Griderbonimelanie on 11-26-2024 Urea nitrogen/Creatinine [Mass ratio] 24.3 mg/mg High 10-20 [facility] Basophil percentageOrdered B y: Leonidesdesireeskye Griderbonimelanie on 11-26-2024 Basophils/100 WBC (Bld) 0.7 % 0-1 [facility] Carbon dioxide, total [Moles /volume] in Central venous bloodOrdered By: sherry Ruelas on 11-26-2024 CO2 [Moles/Vol] 27.1 mmol/L 21.0-32.0 [facility] Chloride assayOrdered By: sherry Ruelas on 11-26-2024 Chloride [Moles/Vol] 101 mmol/L 98-108 [facility] Eosinophil percentageOrdered By: jean mariebrookparkskye Griderbonimelanie on 11-26-2024 Eosinophils/100 WBC (Bld) 1.9 % 0-5 [facility] Erythrocyte distribution wid th ratioOrdered By: Safia Ruelas on 11-26-2024 Erythrocyte distribution width (RBC) [Ratio] 14.2 % 11.6-14.6 [facility] Erythrocyte distribution wid th standard deviationOrdered By: Safia Ruelas on 11-26-2024 Erythrocyte distribution width (RBC) [Ratio] 48.0 fl High 35.1-43.9 [facility] Glomerular filtration rate ( GFR) estimation/1.73 sq m using serum, plasma, or whole bOrdered By: Safia Ruelas on 11-26-2024 GFR/1.73 sq M.predicted among non-blacks MDRD (S/P/Bld) [Vol rate/Area] 63 mL/min/{1.73_m2} >60 [facility] Comment on above: mL/min/1.73m2 CKD-EP I Creatinine Equation (2020) Hematocrit Auto (Bld) [Volum e fraction]Ordered By: Safia Ruelas on 11-26-2024 Hematocrit (Bld) [Volume fraction] 42.7 % 37-47 [facility] Hemoglobin measurementOrdere d By: Safia Ruelas on 11-26-2024 Hemoglobin (Bld) [Mass/Vol] 13.6 g/dL 12.0-15.0 [facility] Immature granulocytes/100 WB C Auto (Bld)Ordered By: Safia Ruelas 11-26-2024 Immature granulocytes/100 WBC (Bld) 0.500 % 0.0-0.9 [facility] Comment on above: IG% - Immature Granu locytes (promyelocytes, myelocytes and metamyelocytes) > 1% indicates that a LEFT SHIFT is Present. MCV (mean corpuscular volume ) determinationOrdered By: Safia Ruelas on 11-26-2024 MCV (RBC) [Entitic vol] 92.0 fL 81-99 [facility] Mean corpuscular hemoglobin (MCH) determinationOrdered By: Safia Ruelas 11-26-2024 MCH (RBC) [Entitic mass] 29.3 pg 27.0-32.0 [facility] Mean corpuscular hemoglobin concentration (MCHC) determinationOrdered By: Safia Ruelas 11-26-2024 MCHC (RBC) [Mass/Vol] 31.9 g/dL Low 32-36 [facility] Mean platelet volume determi nationOrdered By: Leonidesdesireeskye Ruelas on 11-26-2024 Platelet mean volume (Bld) [Entitic vol] 11.5 fL 6.2-12.0 [facility] Monocyte percentageOrdered B y: Leonidesdesireeskye Griderbonimelanie on 11-26-2024 Monocytes/100 WBC (Bld) 7.7 % 0-10 [facility] Neutrophil percentageOrdered By: Safia Ruelas on 11-26-2024 Neutrophils/100 WBC (Bld) 52.1 % 47-70 [facility] Nucleated red blood cell per centageOrdered By: Safia Ruelas on 11-26-2024 Nucleated RBC/100 WBC (Bld) [Ratio] 0 % 0-5 [facility] Platelet countOrdered By: Balbir randallskye Ruelas on 11-26-2024 Platelets (Bld) [#/Vol] 283 10*3/uL 150-450 [facility] Potassium measurement (mass/ volume)Ordered By: Safia Ruelas on 11-26-2024 Potassium (Unsp spec) [Mass/Vol] 3.8 mmol/L 3.3-5.1 [facility] RBC Auto (Bld) [#/Vol]Ordere d By: Leonidesdesireeskye Ruelas on 11-26-2024 RBC (Bld) [#/Vol] 4.64 10*6/uL 4.2-5.4 [facility] Serum creatinine measurement (mass/volume)Ordered By: Safia Ruelas on 11-26-2024 Creatinine [Mass/Vol] 0.92 mg/dL 0.70-1.20 [facility] Serum glucose measurement (m ass/volume)Ordered By: Safia Ruelas on 11-26-2024 Glucose [Mass/Vol] 97 mg/dL 70-99 [facility] Serum or plasma calcium dayna urement (mass/volume)Ordered By: Safia Ruelas on 11-26-2024 Calcium [Mass/Vol] 10.0 mg/dL 7.6-11.0 [facility] Serum or plasma urea nitroge n measurement (mass/volume)Ordered By: Safia Ruelas on 11-26-2024 Urea nitrogen [Mass/Vol] 22 mg/dL High 4-19 [facility] Sodium levelOrdered By: Balbirjean marie josé antonio Cheoquyen on 11-26-2024 Sodium [Moles/Vol] 140 mmol/L 133-145 [facility] White blood cell (WBC) count Ordered By: Balbirjean mariejosé antonio Cheobonimelanie on 11-26-2024 WBC (Bld) [#/Vol] 8.1 10*3/uL 4.4-11.0 [facility] Clostridium difficile detect ion by polymerase chain reactionOrdered By: Safia Griderbonimelanie on 11-25-2024 C. difficile DNA CHUCKY+probe Ql (Unsp spec) [facility] Absolute lymphocyte countOrd ered By: Leonidesdesireeskye Griderbonimelanie on 11-19-2024 Lymphocytes Auto (Unsp spec) [#/Vol] 2.71 10*3/uL 0.83-4.51 [facility] Absolute neutrophil countOrd ered By: Leonidesjosé antonio Cheobonimelanie on 11-19-2024 Neutrophils (Bld) [#/Vol] 5.2 10*3/uL 2.0-7.7 [facility] Anion gap in Serum or Plasma Ordered By: Safia Griderbonimelanie on 11-19-2024 Anion gap [Moles/Vol] 12 mmol/L 5-15 [facility] Automated lymphocyte count a s percentage of total leukocytesOrdered By: Safia Ruelas on 11-19-2024 Lymphocytes/100 WBC Auto (Unsp spec) 30.4 % 19-41 [facility] BUN/creatinine ratioOrdered By: Safia Griderbonimelanie on 11-19-2024 Urea nitrogen/Creatinine [Mass ratio] 25.0 mg/mg High 10-20 [facility] Basophil percentageOrdered B y: Balbirjean mariedesireeskye Griderbonimelanie on 11-19-2024 Basophils/100 WBC (Bld) 0.6 % 0-1 [facility] Carbon dioxide, total [Moles /volume] in Central venous bloodOrdered By: Safia Ruelas on 11-19-2024 CO2 [Moles/Vol] 25.5 mmol/L 21.0-32.0 [facility] Chloride assayOrdered By: Balbir Ruelas on 11-19-2024 Chloride [Moles/Vol] 101 mmol/L 98-108 [facility] Eosinophil percentageOrdered By: Safia Ruelas 11-19-2024 Eosinophils/100 WBC (Bld) 2.1 % 0-5 [facility] Erythrocyte distribution wid th ratioOrdered By: Safia Ruelas on 11-19-2024 Erythrocyte distribution width (RBC) [Ratio] 13.9 % 11.6-14.6 [facility] Erythrocyte distribution wid th standard deviationOrdered By: Safia Ruelas on 11-19-2024 Erythrocyte distribution width (RBC) [Ratio] 46.6 fl High 35.1-43.9 [facility] Glomerular filtration rate ( GFR) estimation/1.73 sq m using serum, plasma, or whole bOrdered By: sherry Ruelas on 11-19-2024 GFR/1.73 sq M.predicted among non-blacks MDRD (S/P/Bld) [Vol rate/Area] 66 mL/min/{1.73_m2} >60 [facility] Comment on above: mL/min/1.73m2 CKD-EP I Creatinine Equation (2020) Hematocrit Auto (Bld) [Volum e fraction]Ordered By: Safia Ruelas on 11-19-2024 Hematocrit (Bld) [Volume fraction] 39.2 % 37-47 [facility] Hemoglobin measurementOrdere d By: Safia Ruelas 11-19-2024 Hemoglobin (Bld) [Mass/Vol] 12.7 g/dL 12.0-15.0 [facility] Immature granulocytes/100 WB C Auto (Bld)Ordered By: Safia Ruelas on 11-19-2024 Immature granulocytes/100 WBC (Bld) 0.300 % 0.0-0.9 [facility] Comment on above: IG% - Immature Granu locytes (promyelocytes, myelocytes and metamyelocytes) > 1% indicates that a LEFT SHIFT is Present. MCV (mean corpuscular volume ) determinationOrdered By: Safia Ruelas on 11-19-2024 MCV (RBC) [Entitic vol] 91.4 fL 81-99 [facility] Mean corpuscular hemoglobin (MCH) determinationOrdered By: Safia Ruelas on 11-19-2024 MCH (RBC) [Entitic mass] 29.6 pg 27.0-32.0 [facility] Mean corpuscular hemoglobin concentration (MCHC) determinationOrdered By: Safia Ruelas on 11-19-2024 MCHC (RBC) [Mass/Vol] 32.4 g/dL 32-36 [facility] Mean platelet volume determi nationOrdered By: Safia Ruelas on 11-19-2024 Platelet mean volume (Bld) [Entitic vol] 11.5 fL 6.2-12.0 [facility] Monocyte percentageOrdered B y: Safia Ruelas on 11-19-2024 Monocytes/100 WBC (Bld) 7.8 % 0-10 [facility] Neutrophil percentageOrdered By: Safia Ruelas on 11-19-2024 Neutrophils/100 WBC (Bld) 58.8 % 47-70 [facility] Nucleated red blood cell per centageOrdered By: Safia Ruelas on 11-19-2024 Nucleated RBC/100 WBC (Bld) [Ratio] 0 % 0-5 [facility] Platelet countOrdered By: Balbir Ruelas on 11-19-2024 Platelets (Bld) [#/Vol] 300 10*3/uL 150-450 [facility] Potassium measurement (mass/ volume)Ordered By: Safia Ruelas on 11-19-2024 Potassium (Unsp spec) [Mass/Vol] 3.8 mmol/L 3.3-5.1 [facility] RBC Auto (Bld) [#/Vol]Ordere d By: Safia Ruelas on 11-19-2024 RBC (Bld) [#/Vol] 4.29 10*6/uL 4.2-5.4 [facility] Serum creatinine measurement (mass/volume)Ordered By: Safia Ruelas on 11-19-2024 Creatinine [Mass/Vol] 0.88 mg/dL 0.70-1.20 [facility] Serum glucose measurement (m ass/volume)Ordered By: Safia Ruelas on 11-19-2024 Glucose [Mass/Vol] 136 mg/dL High 70-99 [facility] Serum or plasma calcium danya urement (mass/volume)Ordered By: Safia Reulas on 11-19-2024 Calcium [Mass/Vol] 9.6 mg/dL 7.6-11.0 [facility] Serum or plasma urea nitroge n measurement (mass/volume)Ordered By: Safia Ruelas on 11-19-2024 Urea nitrogen [Mass/Vol] 22 mg/dL High 4-19 [facility] Sodium levelOrdered By: Balbirjean marie chou Jessenia on 11-19-2024 Sodium [Moles/Vol] 139 mmol/L 133-145 [facility] White blood cell (WBC) count Ordered By: Safia Ruelas on 11-19-2024 WBC (Bld) [#/Vol] 8.9 10*3/uL 4.4-11.0 [facility] Absolute lymphocyte countOrd ered By: Safia Ruelas on 11-12-2024 Lymphocytes Auto (Unsp spec) [#/Vol] 2.49 10*3/uL 0.83-4.51 [facility] Absolute neutrophil countOrd ered By: Safia Ruelas on 11-12-2024 Neutrophils (Bld) [#/Vol] 4.2 10*3/uL 2.0-7.7 [facility] Anion gap in Serum or Plasma Ordered By: Safia Ruelas on 11-12-2024 Anion gap [Moles/Vol] 12 mmol/L 5-15 [facility] Automated lymphocyte count a s percentage of total leukocytesOrdered By: Safia Ruelas on 11-12-2024 Lymphocytes/100 WBC Auto (Unsp spec) 31.9 % 19-41 [facility] BUN/creatinine ratioOrdered By: Safia Ruelas on 11-12-2024 Urea nitrogen/Creatinine [Mass ratio] 28.1 mg/mg High 10-20 [facility] Basophil percentageOrdered B y: Safia Ruelas on 07-01-2025 Basophils/100 WBC (Bld) 0.6 % 0-1 [facility] Carbon dioxide, total [Moles /volume] in Central venous bloodOrdered By: Safia Ruelas on 11-12-2024 CO2 [Moles/Vol] 25.1 mmol/L 21.0-32.0 [facility] Chloride assayOrdered By: Balbir Ruelas on 11-12-2024 Chloride [Moles/Vol] 102 mmol/L 98-108 [facility] Eosinophil percentageOrdered By: Safia Ruelas on 11-12-2024 Eosinophils/100 WBC (Bld) 2.8 % 0-5 [facility] Erythrocyte distribution wid th ratioOrdered By: sherry Ruelas on 11-12-2024 Erythrocyte distribution width (RBC) [Ratio] 13.8 % 11.6-14.6 [facility] Erythrocyte distribution wid th standard deviationOrdered By: jean mariebrookparkskye Ruelas on 11-12-2024 Erythrocyte distribution width (RBC) [Ratio] 46.7 fl High 35.1-43.9 [facility] Glomerular filtration rate ( GFR) estimation/1.73 sq m using serum, plasma, or whole bOrdered By: Safia Ruelas on 11-12-2024 GFR/1.73 sq M.predicted among non-blacks MDRD (S/P/Bld) [Vol rate/Area] 70 mL/min/{1.73_m2} >60 [facility] Comment on above: mL/min/1.73m2 CKD-EP I Creatinine Equation (2020) Hematocrit Auto (Bld) [Volum e fraction]Ordered By: Safia Ruelas on 11-12-2024 Hematocrit (Bld) [Volume fraction] 40.6 % 37-47 [facility] Hemoglobin measurementOrdere d By: Safia Ruelas on 11-12-2024 Hemoglobin (Bld) [Mass/Vol] 13.2 g/dL 12.0-15.0 [facility] Immature granulocytes/100 WB C Auto (Bld)Ordered By: Safia Ruelas on 11-12-2024 Immature granulocytes/100 WBC (Bld) 0.400 % 0.0-0.9 [facility] Comment on above: IG% - Immature Granu locytes (promyelocytes, myelocytes and metamyelocytes) > 1% indicates that a LEFT SHIFT is Present. MCV (mean corpuscular volume ) determinationOrdered By: Safia Ruelas on 11-12-2024 MCV (RBC) [Entitic vol] 92.1 fL 81-99 [facility] Mean corpuscular hemoglobin (MCH) determinationOrdered By: Safia Ruelas on 11-12-2024 MCH (RBC) [Entitic mass] 29.9 pg 27.0-32.0 [facility] Mean corpuscular hemoglobin concentration (MCHC) determinationOrdered By: Safia Ruelas on 11-12-2024 MCHC (RBC) [Mass/Vol] 32.5 g/dL 32-36 [facility] Mean platelet volume determi nationOrdered By: Safia Ruelas on 11-12-2024 Platelet mean volume (Bld) [Entitic vol] 11.7 fL 6.2-12.0 [facility] Monocyte percentageOrdered B y: Safia Ruelas on 11-12-2024 Monocytes/100 WBC (Bld) 10.0 % 0-10 [facility] Neutrophil percentageOrdered By: Safia Ruelas on 11-12-2024 Neutrophils/100 WBC (Bld) 54.3 % 47-70 [facility] Nucleated red blood cell per centageOrdered By: Safia Ruelas on 11-12-2024 Nucleated RBC/100 WBC (Bld) [Ratio] 0 % 0-5 [facility] Platelet countOrdered By: Balbir Ruelas on 11-12-2024 Platelets (Bld) [#/Vol] 304 10*3/uL 150-450 [facility] Potassium measurement (mass/ volume)Ordered By: Safia Ruelas on 11-12-2024 Potassium (Unsp spec) [Mass/Vol] 3.9 mmol/L 3.3-5.1 [facility] RBC Auto (Bld) [#/Vol]Ordere d By: Safia Ruelas on 11-12-2024 RBC (Bld) [#/Vol] 4.41 10*6/uL 4.2-5.4 [facility] Serum creatinine measurement (mass/volume)Ordered By: Balbirjean mariedesireeskye Griderbonimelanie on 11-12-2024 Creatinine [Mass/Vol] 0.84 mg/dL 0.70-1.20 [facility] Serum glucose measurement (m ass/volume)Ordered By: Safia Griderbonimelanie on 11-12-2024 Glucose [Mass/Vol] 112 mg/dL High 70-99 [facility] Serum or plasma calcium dayna urement (mass/volume)Ordered By: Leonidesdesireeskye Griderbonimelanie on 11-12-2024 Calcium [Mass/Vol] 9.7 mg/dL 7.6-11.0 [facility] Serum or plasma urea nitroge n measurement (mass/volume)Ordered By: Safia Griderbonimelanie on 11-12-2024 Urea nitrogen [Mass/Vol] 24 mg/dL High 4-19 [facility] Sodium levelOrdered By: Leonides chou Cheobonimelanie on 11-12-2024 Sodium [Moles/Vol] 139 mmol/L 133-145 [facility] White blood cell (WBC) count Ordered By: Leonidesdesireeskye Griderbonimelanie on 11-12-2024 WBC (Bld) [#/Vol] 7.8 10*3/uL 4.4-11.0 [facility] Absolute lymphocyte countOrd ered By: Safia Griderbonimelanie on 11-05-2024 Lymphocytes Auto (Unsp spec) [#/Vol] 2.91 10*3/uL 0.83-4.51 [facility] Absolute neutrophil countOrd ered By: Bandarskye Griderbonimelanie on 11-05-2024 Neutrophils (Bld) [#/Vol] 4.6 10*3/uL 2.0-7.7 [facility] Anion gap in Serum or Plasma Ordered By: Bandarskye Griderbonimelanie on 11-05-2024 Anion gap [Moles/Vol] 13 mmol/L 5-15 [facility] Automated lymphocyte count a s percentage of total leukocytesOrdered By: Safia Ruelas on 11-05-2024 Lymphocytes/100 WBC Auto (Unsp spec) 33.7 % 19-41 [facility] BUN/creatinine ratioOrdered By: Safia Ruelas on 11-05-2024 Urea nitrogen/Creatinine [Mass ratio] 23.3 mg/mg High 10-20 [facility] Basophil percentageOrdered B y: Safia Ruelas on 11-05-2024 Basophils/100 WBC (Bld) 0.9 % 0-1 [facility] Carbon dioxide, total [Moles /volume] in Central venous bloodOrdered By: Safia Ruelas on 11-05-2024 CO2 [Moles/Vol] 24.2 mmol/L 21.0-32.0 [facility] Chloride assayOrdered By: Balbir Ruelas on 11-05-2024 Chloride [Moles/Vol] 102 mmol/L 98-108 [facility] Eosinophil percentageOrdered By: Safia Ruelas on 11-05-2024 Eosinophils/100 WBC (Bld) 2.7 % 0-5 [facility] Erythrocyte distribution wid th ratioOrdered By: Safia Ruelas on 11-05-2024 Erythrocyte distribution width (RBC) [Ratio] 13.9 % 11.6-14.6 [facility] Erythrocyte distribution wid th standard deviationOrdered By: Safia Ruelas on 11-05-2024 Erythrocyte distribution width (RBC) [Ratio] 47.1 fl High 35.1-43.9 [facility] Glomerular filtration rate ( GFR) estimation/1.73 sq m using serum, plasma, or whole bOrdered By: Safia Ruelas on 11-05-2024 GFR/1.73 sq M.predicted among non-blacks MDRD (S/P/Bld) [Vol rate/Area] 62 mL/min/{1.73_m2} >60 [facility] Comment on above: mL/min/1.73m2 CKD-EP I Creatinine Equation (2020) Hematocrit Auto (Bld) [Volum e fraction]Ordered By: Safia Ruelas on 11-05-2024 Hematocrit (Bld) [Volume fraction] 40.7 % 37-47 [facility] Hemoglobin measurementOrdere d By: Safia Ruelsa on 11-05-2024 Hemoglobin (Bld) [Mass/Vol] 12.9 g/dL 12.0-15.0 [facility] Immature granulocytes/100 WB C Auto (Bld)Ordered By: Safia Ruelas on 11-05-2024 Immature granulocytes/100 WBC (Bld) 0.500 % 0.0-0.9 [facility] Comment on above: IG% - Immature Granu locytes (promyelocytes, myelocytes and metamyelocytes) > 1% indicates that a LEFT SHIFT is Present. MCV (mean corpuscular volume ) determinationOrdered By: Safia Ruelas on 11-05-2024 MCV (RBC) [Entitic vol] 92.9 fL 81-99 [facility] Mean corpuscular hemoglobin (MCH) determinationOrdered By: Safia Ruelas on 11-05-2024 MCH (RBC) [Entitic mass] 29.5 pg 27.0-32.0 [facility] Mean corpuscular hemoglobin concentration (MCHC) determinationOrdered By: Safia Ruelas on 11-05-2024 MCHC (RBC) [Mass/Vol] 31.7 g/dL Low 32-36 [facility] Mean platelet volume determi nationOrdered By: Safia Ruelas on 11-05-2024 Platelet mean volume (Bld) [Entitic vol] 11.2 fL 6.2-12.0 [facility] Monocyte percentageOrdered B y: Safia Ruelas on 11-05-2024 Monocytes/100 WBC (Bld) 8.6 % 0-10 [facility] Neutrophil percentageOrdered By: Safia Ruelas on 11-05-2024 Neutrophils/100 WBC (Bld) 53.6 % 47-70 [facility] Nucleated red blood cell per centageOrdered By: Safia Ruelas on 11-05-2024 Nucleated RBC/100 WBC (Bld) [Ratio] 0 % 0-5 [facility] Platelet countOrdered By: Balbir Ruelas on 11-05-2024 Platelets (Bld) [#/Vol] 318 10*3/uL 150-450 [facility] Potassium measurement (mass/ volume)Ordered By: Safia Ruelas on 11-05-2024 Potassium (Unsp spec) [Mass/Vol] 4.0 mmol/L 3.3-5.1 [facility] RBC Auto (Bld) [#/Vol]Ordere d By: Safia Ruelas on 11-05-2024 RBC (Bld) [#/Vol] 4.38 10*6/uL 4.2-5.4 [facility] Serum creatinine measurement (mass/volume)Ordered By: Safia Ruelas on 11-05-2024 Creatinine [Mass/Vol] 0.93 mg/dL 0.70-1.20 [facility] Serum glucose measurement (m ass/volume)Ordered By: Safia Ruelas on 11-05-2024 Glucose [Mass/Vol] 70 mg/dL 70-99 [facility] Serum or plasma calcium dayna urement (mass/volume)Ordered By: Safia Ruelas on 11-05-2024 Calcium [Mass/Vol] 9.5 mg/dL 7.6-11.0 [facility] Serum or plasma urea nitroge n measurement (mass/volume)Ordered By: Safia Ruelas on 11-05-2024 Urea nitrogen [Mass/Vol] 22 mg/dL High 4-19 [facility] Sodium levelOrdered By: Leonides jiménezradha Jessenia on 11-05-2024 Sodium [Moles/Vol] 139 mmol/L 133-145 [facility] White blood cell (WBC) count Ordered By: Safia Ruelas on 11-05-2024 WBC (Bld) [#/Vol] 8.6 10*3/uL 4.4-11.0 [facility] Absolute lymphocyte countOrd ered By: Safia Ruelas on 10-29-2024 Lymphocytes Auto (Unsp spec) [#/Vol] 2.69 10*3/uL 0.83-4.51 [facility] Absolute neutrophil countOrd ered By: Safia Ruelas on 10-29-2024 Neutrophils (Bld) [#/Vol] 4.5 10*3/uL 2.0-7.7 [facility] Anion gap in Serum or Plasma Ordered By: Safia Ruelas on 10-29-2024 Anion gap [Moles/Vol] 11 mmol/L 5-15 [facility] Automated lymphocyte count a s percentage of total leukocytesOrdered By: Safia Ruelas on 10-29-2024 Lymphocytes/100 WBC Auto (Unsp spec) 32.6 % 19-41 [facility] BUN/creatinine ratioOrdered By: Leonidesbrookparkskye Ruelas on 10-29-2024 Urea nitrogen/Creatinine [Mass ratio] 25.2 mg/mg High 10-20 [facility] Basophil percentageOrdered B y: Safia Ruelas on 10-29-2024 Basophils/100 WBC (Bld) 0.7 % 0-1 [facility] Carbon dioxide, total [Moles /volume] in Central venous bloodOrdered By: Leonidesbrookparkskye Ruelas on 10-29-2024 CO2 [Moles/Vol] 25.7 mmol/L 21.0-32.0 [facility] Chloride assayOrdered By: Balbir Ruelas on 10-29-2024 Chloride [Moles/Vol] 102 mmol/L 98-108 [facility] Eosinophil percentageOrdered By: jean mariebrookparkskye Ruelas on 10-29-2024 Eosinophils/100 WBC (Bld) 2.1 % 0-5 [facility] Erythrocyte distribution wid th ratioOrdered By: jean mariebrookparkskye Ruelas on 10-29-2024 Erythrocyte distribution width (RBC) [Ratio] 13.6 % 11.6-14.6 [facility] Erythrocyte distribution wid th standard deviationOrdered By: Safia Ruelas on 10-29-2024 Erythrocyte distribution width (RBC) [Ratio] 46.6 fl High 35.1-43.9 [facility] Glomerular filtration rate ( GFR) estimation/1.73 sq m using serum, plasma, or whole bOrdered By: Safia Ruelas on 10-29-2024 GFR/1.73 sq M.predicted among non-blacks MDRD (S/P/Bld) [Vol rate/Area] 59 mL/min/{1.73_m2} Low >60 [facility] Comment on above: mL/min/1.73m2 CKD-EP I Creatinine Equation (2020) Hematocrit Auto (Bld) [Volum e fraction]Ordered By: Safia Ruelas on 10-29-2024 Hematocrit (Bld) [Volume fraction] 37.8 % 37-47 [facility] Hemoglobin measurementOrdere d By: Safia Ruelas on 10-29-2024 Hemoglobin (Bld) [Mass/Vol] 12.2 g/dL 12.0-15.0 [facility] Immature granulocytes/100 WB C Auto (Bld)Ordered By: Safia Ruelas on 10-29-2024 Immature granulocytes/100 WBC (Bld) 0.400 % 0.0-0.9 [facility] Comment on above: IG% - Immature Granu locytes (promyelocytes, myelocytes and metamyelocytes) > 1% indicates that a LEFT SHIFT is Present. MCV (mean corpuscular volume ) determinationOrdered By: Safia Ruelas on 10-29-2024 MCV (RBC) [Entitic vol] 92.2 fL 81-99 [facility] Mean corpuscular hemoglobin (MCH) determinationOrdered By: jean mariebrookparkskye Ruelas on 10-29-2024 MCH (RBC) [Entitic mass] 29.8 pg 27.0-32.0 [facility] Mean corpuscular hemoglobin concentration (MCHC) determinationOrdered By: Safia Ruelas on 10-29-2024 MCHC (RBC) [Mass/Vol] 32.3 g/dL 32-36 [facility] Mean platelet volume determi nationOrdered By: Safia Ruelas on 10-29-2024 Platelet mean volume (Bld) [Entitic vol] 11.1 fL 6.2-12.0 [facility] Monocyte percentageOrdered B y: Safia Ruelas on 10-29-2024 Monocytes/100 WBC (Bld) 9.9 % 0-10 [facility] Neutrophil percentageOrdered By: Safia Ruelas on 10-29-2024 Neutrophils/100 WBC (Bld) 54.3 % 47-70 [facility] Nucleated red blood cell per centageOrdered By: Safia Ruelas on 10-29-2024 Nucleated RBC/100 WBC (Bld) [Ratio] 0 % 0-5 [facility] Platelet countOrdered By: Balbir randallskye Ruelas on 10-29-2024 Platelets (Bld) [#/Vol] 283 10*3/uL 150-450 [facility] Potassium measurement (mass/ volume)Ordered By: Safia Ruelas on 10-29-2024 Potassium (Unsp spec) [Mass/Vol] 3.9 mmol/L 3.3-5.1 [facility] RBC Auto (Bld) [#/Vol]Ordere d By: Safia Ruelas on 10-29-2024 RBC (Bld) [#/Vol] 4.10 10*6/uL Low 4.2-5.4 [facility] Serum creatinine measurement (mass/volume)Ordered By: Safia Ruelas on 10-29-2024 Creatinine [Mass/Vol] 0.97 mg/dL 0.70-1.20 [facility] Serum glucose measurement (m ass/volume)Ordered By: Safia Ruelas on 10-29-2024 Glucose [Mass/Vol] 74 mg/dL 70-99 [facility] Serum or plasma calcium dayna urement (mass/volume)Ordered By: Safia Ruelas on 10-29-2024 Calcium [Mass/Vol] 9.5 mg/dL 7.6-11.0 [facility] Serum or plasma urea nitroge n measurement (mass/volume)Ordered By: Safia Ruelas on 10-29-2024 Urea nitrogen [Mass/Vol] 24 mg/dL High 4-19 [facility] Sodium levelOrdered By: Leonides jiménezradha Jessenia on 10-29-2024 Sodium [Moles/Vol] 138 mmol/L 133-145 [facility] White blood cell (WBC) count Ordered By: Safia Ruelas on 10-29-2024 WBC (Bld) [#/Vol] 8.3 10*3/uL 4.4-11.0 [facility] Bilirubin Test strip Ql (U)O rdered By: Safia Ruelas on 10-23-2024 Bilirubin Ql (U) Negative Negative [facility] Ketones Test strip Ql (U)Ord ered By: Safia Ruelas on 10-23-2024 Ketones Ql (U) Negative Negative [facility] Nitrite Test strip Ql (U)Ord ered By: Safia Ruelas on 10-23-2024 Nitrite Ql (U) Positive High Negative [facility] Protein Test strip Ql (U)Ord ered By: Safia Ruelas on 10-23-2024 Protein Ql (U) 15 mg/dl High Negative [facility] Urine clarityOrdered By: Augusto Ruelas on 10-23-2024 Clarity (U) Clear Clear [facility] Urine color determinationOrd ered By: Safia Ruelas on 10-23-2024 Color (U) Yellow Yellow [facility] Urine cultureOrdered By: Augusto Ruelas on 10-23-2024 Bacteria identified Cx Nom (U) Klebsiella pneumoniae sp pneum Abnormal [facility] Urine glucose detectionOrder ed By: Safia Ruelas on 10-23-2024 Glucose Ql (U) Normal mg/dl Normal [facility] Urine leukocyte esterase det ection by dipstickOrdered By: Safia Ruelas on 10-23-2024 Leukocyte esterase Test strip Ql (U) 500 /ul High Negative [facility] Urine pHOrdered By: Mazin Ruelas on 10-23-2024 pH (U) 6.0 [pH] 5.0 - 8.0 [facility] Urine specific gravity measu rementOrdered By: Safia Ruelas on 10-23-2024 Specific gravity (U) [Rel density] 1.010 1.002-1.030 [facility] Urine urobilinogen measureme ntOrdered By: Safia Ruelas on 10-23-2024 Urobilinogen Ql (U) Normal mg/dl Normal [facility] Absolute lymphocyte countOrd ered By: Safia Ruelas on 10-22-2024 Lymphocytes Auto (Unsp spec) [#/Vol] 3.07 10*3/uL 0.83-4.51 [facility] Absolute neutrophil countOrd ered By: Safia Ruelas on 10-22-2024 Neutrophils (Bld) [#/Vol] 4.6 10*3/uL 2.0-7.7 [facility] Anion gap in Serum or Plasma Ordered By: Safia Ruelas on 10-22-2024 Anion gap [Moles/Vol] 15 mmol/L 5-15 [facility] Automated lymphocyte count a s percentage of total leukocytesOrdered By: Safia Ruelas on 10-22-2024 Lymphocytes/100 WBC Auto (Unsp spec) 34.8 % 19-41 [facility] BUN/creatinine ratioOrdered By: jean mariebrookparkskye Ruelas on 10-22-2024 Urea nitrogen/Creatinine [Mass ratio] 28.6 mg/mg High 10-20 [facility] Basophil percentageOrdered B y: Safia Ruelas on 10-22-2024 Basophils/100 WBC (Bld) 0.9 % 0-1 [facility] Carbon dioxide, total [Moles /volume] in Central venous bloodOrdered By: Safia Ruelas on 10-22-2024 CO2 [Moles/Vol] 23.1 mmol/L 21.0-32.0 [facility] Chloride assayOrdered By: Balbir jean mariejosé antonio Ruelas on 10-22-2024 Chloride [Moles/Vol] 100 mmol/L 98-108 [facility] Eosinophil percentageOrdered By: jean mariebrookparkskye Ruelas on 10-22-2024 Eosinophils/100 WBC (Bld) 3.1 % 0-5 [facility] Erythrocyte distribution wid th ratioOrdered By: Safia Ruelas on 10-22-2024 Erythrocyte distribution width (RBC) [Ratio] 13.6 % 11.6-14.6 [facility] Erythrocyte distribution wid th standard deviationOrdered By: jean mariebrookparkskye Ruelas on 10-22-2024 Erythrocyte distribution width (RBC) [Ratio] 45.9 fl High 35.1-43.9 [facility] Glomerular filtration rate ( GFR) estimation/1.73 sq m using serum, plasma, or whole bOrdered By: Safia uRelas on 10-22-2024 GFR/1.73 sq M.predicted among non-blacks MDRD (S/P/Bld) [Vol rate/Area] 60 mL/min/{1.73_m2} >60 [facility] Comment on above: mL/min/1.73m2 CKD-EP I Creatinine Equation (2020) Hematocrit Auto (Bld) [Volum e fraction]Ordered By: Safia Ruelas on 10-22-2024 Hematocrit (Bld) [Volume fraction] 40.7 % 37-47 [facility] Hemoglobin measurementOrdere d By: Safia Ruelas on 10-22-2024 Hemoglobin (Bld) [Mass/Vol] 13.1 g/dL 12.0-15.0 [facility] Immature granulocytes/100 WB C Auto (Bld)Ordered By: Safia Ruelas on 10-22-2024 Immature granulocytes/100 WBC (Bld) 1.400 % High 0.0-0.9 [facility] Comment on above: IG% - Immature Granu locytes (promyelocytes, myelocytes and metamyelocytes) > 1% indicates that a LEFT SHIFT is Present. MCV (mean corpuscular volume ) determinationOrdered By: Safia Ruelas on 10-22-2024 MCV (RBC) [Entitic vol] 91.9 fL 81-99 [facility] Mean corpuscular hemoglobin (MCH) determinationOrdered By: Safia Ruelas on 10-22-2024 MCH (RBC) [Entitic mass] 29.6 pg 27.0-32.0 [facility] Mean corpuscular hemoglobin concentration (MCHC) determinationOrdered By: Safia Ruelas on 10-22-2024 MCHC (RBC) [Mass/Vol] 32.2 g/dL 32-36 [facility] Mean platelet volume determi nationOrdered By: aSfia Ruelas on 10-22-2024 Platelet mean volume (Bld) [Entitic vol] 11.2 fL 6.2-12.0 [facility] Monocyte percentageOrdered B y: Safia Ruelas on 10-22-2024 Monocytes/100 WBC (Bld) 7.7 % 0-10 [facility] Neutrophil percentageOrdered By: Safia Ruelas on 10-22-2024 Neutrophils/100 WBC (Bld) 52.1 % 47-70 [facility] Nucleated red blood cell per centageOrdered By: Safia Cheoquyen on 10-22-2024 Nucleated RBC/100 WBC (Bld) [Ratio] 0 % 0-5 [facility] Platelet countOrdered By: Balbir Ruelas on 10-22-2024 Platelets (Bld) [#/Vol] 334 10*3/uL 150-450 [facility] Potassium measurement (mass/ volume)Ordered By: Balbirjean mariejosé antonio Cheobonimelanie on 10-22-2024 Potassium (Unsp spec) [Mass/Vol] 3.7 mmol/L 3.3-5.1 [facility] RBC Auto (Bld) [#/Vol]Ordere d By: Safia Cheoquyen on 10-22-2024 RBC (Bld) [#/Vol] 4.43 10*6/uL 4.2-5.4 [facility] Serum creatinine measurement (mass/volume)Ordered By: Balbirjean mariedesireeskye Griderbonimelanie on 10-22-2024 Creatinine [Mass/Vol] 0.96 mg/dL 0.70-1.20 [facility] Serum glucose measurement (m ass/volume)Ordered By: Balbirjean mariejosé antonio Cheobonimelanie on 10-22-2024 Glucose [Mass/Vol] 106 mg/dL High 70-99 [facility] Serum or plasma calcium dayna urement (mass/volume)Ordered By: Balbirjean mariejosé antonio Cheobonimelanie on 10-22-2024 Calcium [Mass/Vol] 9.4 mg/dL 7.6-11.0 [facility] Serum or plasma urea nitroge n measurement (mass/volume)Ordered By: Balbirsherry Griderbonimelanie on 10-22-2024 Urea nitrogen [Mass/Vol] 28 mg/dL High 4-19 [facility] Sodium levelOrdered By: Leonides chou Cheobonimelanie on 10-22-2024 Sodium [Moles/Vol] 138 mmol/L 133-145 [facility] TSH DL <= 0.005 mIU/L QnOrde red By: Balbirjean mariejosé antonio Cheobonimelanie on 10-22-2024 TSH Qn 4.630 uIU/mL High 0.300-4.200 [facility] White blood cell (WBC) count Ordered By: Safia Ruelas on 10-22-2024 WBC (Bld) [#/Vol] 8.8 10*3/uL 4.4-11.0 [facility] Absolute lymphocyte countOrd ered By: Safia Ruelas on 10-15-2024 Lymphocytes Auto (Unsp spec) [#/Vol] 3.04 10*3/uL 0.83-4.51 [facility] Absolute neutrophil countOrd ered By: Safia Ruelas on 10-15-2024 Neutrophils (Bld) [#/Vol] 4.3 10*3/uL 2.0-7.7 [facility] Anion gap in Serum or Plasma Ordered By: Safia Ruelas on 10-15-2024 Anion gap [Moles/Vol] 12 mmol/L 5-15 [facility] Automated lymphocyte count a s percentage of total leukocytesOrdered By: Safia Ruelas on 10-15-2024 Lymphocytes/100 WBC Auto (Unsp spec) 36.7 % 19-41 [facility] BUN/creatinine ratioOrdered By: Safia Ruelas on 10-15-2024 Urea nitrogen/Creatinine [Mass ratio] 36.5 mg/mg High 10-20 [facility] Basophil percentageOrdered B y: Safia Ruelas on 10-15-2024 Basophils/100 WBC (Bld) 0.7 % 0-1 [facility] Carbon dioxide, total [Moles /volume] in Central venous bloodOrdered By: Safia Ruelas on 10-15-2024 CO2 [Moles/Vol] 25.2 mmol/L 21.0-32.0 [facility] Chloride assayOrdered By: Balbir Ruelas on 10-15-2024 Chloride [Moles/Vol] 100 mmol/L 98-108 [facility] Eosinophil percentageOrdered By: Safia Ruelas on 10-15-2024 Eosinophils/100 WBC (Bld) 2.4 % 0-5 [facility] Erythrocyte distribution wid th ratioOrdered By: Safia Ruelas on 10-15-2024 Erythrocyte distribution width (RBC) [Ratio] 13.5 % 11.6-14.6 [facility] Erythrocyte distribution wid th standard deviationOrdered By: Safia Ruelas on 10-15-2024 Erythrocyte distribution width (RBC) [Ratio] 45.2 fl High 35.1-43.9 [facility] Glomerular filtration rate ( GFR) estimation/1.73 sq m using serum, plasma, or whole bOrdered By: Safia Ruelas on 10-15-2024 GFR/1.73 sq M.predicted among non-blacks MDRD (S/P/Bld) [Vol rate/Area] 71 mL/min/{1.73_m2} >60 [facility] Comment on above: mL/min/1.73m2 CKD-EP I Creatinine Equation (2020) Hematocrit Auto (Bld) [Volum e fraction]Ordered By: Safia Ruelas on 10-15-2024 Hematocrit (Bld) [Volume fraction] 40.3 % 37-47 [facility] Hemoglobin measurementOrdere d By: Safia Ruelas on 10-15-2024 Hemoglobin (Bld) [Mass/Vol] 13.3 g/dL 12.0-15.0 [facility] Immature granulocytes/100 WB C Auto (Bld)Ordered By: Safia Ruelas on 10-15-2024 Immature granulocytes/100 WBC (Bld) 0.400 % 0.0-0.9 [facility] Comment on above: IG% - Immature Granu locytes (promyelocytes, myelocytes and metamyelocytes) > 1% indicates that a LEFT SHIFT is Present. MCV (mean corpuscular volume ) determinationOrdered By: Safia Ruelas on 10-15-2024 MCV (RBC) [Entitic vol] 91.0 fL 81-99 [facility] Mean corpuscular hemoglobin (MCH) determinationOrdered By: Safia Ruelas on 10-15-2024 MCH (RBC) [Entitic mass] 30.0 pg 27.0-32.0 [facility] Mean corpuscular hemoglobin concentration (MCHC) determinationOrdered By: Safia Ruelas on 10-15-2024 MCHC (RBC) [Mass/Vol] 33.0 g/dL 32-36 [facility] Mean platelet volume determi nationOrdered By: Safia Ruelas on 10-15-2024 Platelet mean volume (Bld) [Entitic vol] 11.9 fL 6.2-12.0 [facility] Monocyte percentageOrdered B y: Safia Ruelas on 10-15-2024 Monocytes/100 WBC (Bld) 8.2 % 0-10 [facility] Neutrophil percentageOrdered By: Safia Ruelas on 10-15-2024 Neutrophils/100 WBC (Bld) 51.6 % 47-70 [facility] Nucleated red blood cell per centageOrdered By: aSfia Ruelas on 10-15-2024 Nucleated RBC/100 WBC (Bld) [Ratio] 0 % 0-5 [facility] Platelet countOrdered By: Balbir Ruelas on 10-15-2024 Platelets (Bld) [#/Vol] 221 10*3/uL 150-450 [facility] Potassium measurement (mass/ volume)Ordered By: Safia Ruelas on 10-15-2024 Potassium (Unsp spec) [Mass/Vol] 3.8 mmol/L 3.3-5.1 [facility] RBC Auto (Bld) [#/Vol]Ordere d By: Safia Ruelas on 10-15-2024 RBC (Bld) [#/Vol] 4.43 10*6/uL 4.2-5.4 [facility] Serum creatinine measurement (mass/volume)Ordered By: Safia Ruelas on 10-15-2024 Creatinine [Mass/Vol] 0.83 mg/dL 0.70-1.20 [facility] Serum glucose measurement (m ass/volume)Ordered By: Safia Ruelas on 10-15-2024 Glucose [Mass/Vol] 68 mg/dL Low 70-99 [facility] Serum or plasma calcium dayna urement (mass/volume)Ordered By: Safia Ruelas on 10-15-2024 Calcium [Mass/Vol] 9.3 mg/dL 7.6-11.0 [facility] Serum or plasma urea nitroge n measurement (mass/volume)Ordered By: Safia Ruelas on 10-15-2024 Urea nitrogen [Mass/Vol] 30 mg/dL High 4-19 [facility] Sodium levelOrdered By: Leonides josé antonio Jessenia on 10-15-2024 Sodium [Moles/Vol] 138 mmol/L 133-145 [facility] White blood cell (WBC) count Ordered By: Safia Ruelas on 10-15-2024 WBC (Bld) [#/Vol] 8.3 10*3/uL 4.4-11.0 [facility] Absolute lymphocyte countOrd ered By: Safia Ruelas on 10-08-2024 Lymphocytes Auto (Unsp spec) [#/Vol] 2.52 10*3/uL 0.83-4.51 [facility] Absolute neutrophil countOrd ered By: aSfia Ruelas on 10-08-2024 Neutrophils (Bld) [#/Vol] 4.9 10*3/uL 2.0-7.7 [facility] Anion gap in Serum or Plasma Ordered By: Safia Ruelas on 10-08-2024 Anion gap [Moles/Vol] 14 mmol/L 5-15 [facility] Automated lymphocyte count a s percentage of total leukocytesOrdered By: Safia Ruelas on 10-08-2024 Lymphocytes/100 WBC Auto (Unsp spec) 29.4 % 19-41 [facility] BUN/creatinine ratioOrdered By: Safia Ruelas on 10-08-2024 Urea nitrogen/Creatinine [Mass ratio] 34.1 mg/mg High 10-20 [facility] Basophil percentageOrdered B y: Safia Ruelas on 10-08-2024 Basophils/100 WBC (Bld) 0.7 % 0-1 [facility] Carbon dioxide, total [Moles /volume] in Central venous bloodOrdered By: Safia Ruelas on 10-08-2024 CO2 [Moles/Vol] 24.0 mmol/L 21.0-32.0 [facility] Chloride assayOrdered By: Balbir jean mariejosé antonio Ruelas on 10-08-2024 Chloride [Moles/Vol] 100 mmol/L 98-108 [facility] Eosinophil percentageOrdered By: Safia Ruelas on 10-08-2024 Eosinophils/100 WBC (Bld) 2.6 % 0-5 [facility] Erythrocyte distribution wid th ratioOrdered By: jean mariebrookparkskye Ruelas on 10-08-2024 Erythrocyte distribution width (RBC) [Ratio] 13.2 % 11.6-14.6 [facility] Erythrocyte distribution wid th standard deviationOrdered By: Leonidesbrookparkskye Ruelas on 10-08-2024 Erythrocyte distribution width (RBC) [Ratio] 45.3 fl High 35.1-43.9 [facility] Glomerular filtration rate ( GFR) estimation/1.73 sq m using serum, plasma, or whole bOrdered By: sherry Ruelas on 10-08-2024 GFR/1.73 sq M.predicted among non-blacks MDRD (S/P/Bld) [Vol rate/Area] 65 mL/min/{1.73_m2} >60 [facility] Comment on above: mL/min/1.73m2 CKD-EP I Creatinine Equation (2020) Hematocrit Auto (Bld) [Volum e fraction]Ordered By: jean mariebrookparkskye Ruelas 10-08-2024 Hematocrit (Bld) [Volume fraction] 41.7 % 37-47 [facility] Hemoglobin measurementOrdere d By: Safia Ruelas 10-08-2024 Hemoglobin (Bld) [Mass/Vol] 13.3 g/dL 12.0-15.0 [facility] Immature granulocytes/100 WB C Auto (Bld)Ordered By: Safia Ruelas 10-08-2024 Immature granulocytes/100 WBC (Bld) 0.400 % 0.0-0.9 [facility] Comment on above: IG% - Immature Granu locytes (promyelocytes, myelocytes and metamyelocytes) > 1% indicates that a LEFT SHIFT is Present. MCV (mean corpuscular volume ) determinationOrdered By: Safia Ruelas on 10-08-2024 MCV (RBC) [Entitic vol] 92.7 fL 81-99 [facility] Mean corpuscular hemoglobin (MCH) determinationOrdered By: Safia Ruelas on 10-08-2024 MCH (RBC) [Entitic mass] 29.6 pg 27.0-32.0 [facility] Mean corpuscular hemoglobin concentration (MCHC) determinationOrdered By: Safia Ruelas on 10-08-2024 MCHC (RBC) [Mass/Vol] 31.9 g/dL Low 32-36 [facility] Mean platelet volume determi nationOrdered By: Safia Ruelas on 10-08-2024 Platelet mean volume (Bld) [Entitic vol] 11.0 fL 6.2-12.0 [facility] Monocyte percentageOrdered B y: Safia Ruelas on 10-08-2024 Monocytes/100 WBC (Bld) 9.2 % 0-10 [facility] Neutrophil percentageOrdered By: Safia Ruelas on 10-08-2024 Neutrophils/100 WBC (Bld) 57.7 % 47-70 [facility] Nucleated red blood cell per centageOrdered By: Safia Ruelas on 10-08-2024 Nucleated RBC/100 WBC (Bld) [Ratio] 0 % 0-5 [facility] Platelet countOrdered By: Balbir Ruelas on 10-08-2024 Platelets (Bld) [#/Vol] 323 10*3/uL 150-450 [facility] Potassium measurement (mass/ volume)Ordered By: Safia Ruelas on 10-08-2024 Potassium (Unsp spec) [Mass/Vol] 4.1 mmol/L 3.3-5.1 [facility] RBC Auto (Bld) [#/Vol]Ordere d By: Safia Ruelas on 10-08-2024 RBC (Bld) [#/Vol] 4.50 10*6/uL 4.2-5.4 [facility] Serum creatinine measurement (mass/volume)Ordered By: Safia Ruelas on 10-08-2024 Creatinine [Mass/Vol] 0.90 mg/dL 0.70-1.20 [facility] Serum glucose measurement (m ass/volume)Ordered By: Safia Ruelas on 10-08-2024 Glucose [Mass/Vol] 82 mg/dL 70-99 [facility] Serum or plasma calcium dayna urement (mass/volume)Ordered By: Sfaia Ruelas on 10-08-2024 Calcium [Mass/Vol] 9.6 mg/dL 7.6-11.0 [facility] Serum or plasma urea nitroge n measurement (mass/volume)Ordered By: [facility] Berrienskye Ruelas on 10-08-2024 Urea nitrogen [Mass/Vol] 31 mg/dL High 4-19 [facility] Sodium levelOrdered By: [facility] josé antonio Ruelas on 10-08-2024 Sodium [Moles/Vol] 138 mmol/L 133-145 [facility] White blood cell (WBC) count Ordered By: [facility] Berrienskye Ruelas on 10-08-2024 WBC (Bld) [#/Vol] 8.6 10*3/uL 4.4-11.0 [facility] 12 [place] [facility] [place] 12 Lead EKG performed by [facility] [address] [place] [address] 12 Lead E[place] [facility] 10/02/24 0921 MR#: [id number] Acct: [id number] Name: LINDSAY ACUNA Rep #: [id number] : 1945 78 From: Mj Benavides MD Attending Dr: Dr. Mj Benavides MD Status: DEP A MB Ordering Dr: Mj Benavides MD Date: 10/02/24 Location: [facility] Sex: F C [place] [facility] [facility] ECG Report Interpretation ---Atrial fibrillation -irregular conduction -Old anterior infarct. ABNORMAL Electronically signed on 10/02/2024 at 16:06 by Mj Benavideswood Software Version [id number] 10/02/24 1608 Date Mj Benavides MD CC: Dr. Kameron Caruso MD Date Dictated: 10/02/24920 Date Transcribed: 10/02/24920 [employer] Consultant: [place] Signed Normal [facility] Cardiology Visit Reporton Cardiology Visit Report [facility] [address] [place] [address] OFFICE VISIT Date of Service: 10/02/24 MR#: [id number] Acct: [id number] Name: LINDSAY ACUNA Rep #: [id number] : 1945 Provider: Dr. Mj Benavides MD Age/Sex: 78/F [place] [facility] Status: Signed HPI HPI History of [...] now she is currently domiciled in a fci. Her previous echocardiogram which was performed in [...] W/C bound Intake Visit Reasons: AFIB (Zuly) Certified Nurse Aide Required: No Accompanied by: Significant Other Is [...] you fallen in the past year?: Yes [facility] Medical History Acute ischemic right MCA [...] normal, nasal (more content not included)... Normal [facility] Absolute lymphocyte countOrd ered By: Leonidesbrookparkskye Ruelas on 10-01-2024 Lymphocytes Auto (Unsp spec) [#/Vol] 2.45 10*3/uL 0.83-4.51 [facility] Absolute neutrophil countOrd ered By: Safia Ruelas on 10-01-2024 Neutrophils (Bld) [#/Vol] 6.5 10*3/uL 2.0-7.7 [facility] Anion gap in Serum or Plasma Ordered By: Safia Ruelas on 10-01-2024 Anion gap [Moles/Vol] 12 mmol/L - [facility] Automated lymphocyte count a s percentage of total leukocytesOrdered By: Safia Ruelas on 10-01-2024 Lymphocytes/100 WBC Auto (Unsp spec) 23.1 % - [facility] BUN/creatinine ratioOrdered By: Safia Ruelas on 10-01-2024 Urea nitrogen/Creatinine [Mass ratio] 24.9 mg/mg High - [facility] Basophil percentageOrdered B y: Safia Ruelas on 10-01-2024 Basophils/100 WBC (Bld) 0.5 % 0-1 [facility] Carbon dioxide, total [Moles /volume] in Central venous bloodOrdered By: Safia Ruelas on 10-01-2024 CO2 [Moles/Vol] 24.4 mmol/L 21.0-32.0 [facility] Chloride assayOrdered By: Balbir Ruelas on 10-01-2024 Chloride [Moles/Vol] 99 mmol/L 98-108 [facility] Eosinophil percentageOrdered By: Safia Ruelas on 10-01-2024 Eosinophils/100 WBC (Bld) 2.0 % 0-5 [facility] Erythrocyte distribution wid th ratioOrdered By: Safia Ruelas on 10-01-2024 Erythrocyte distribution width (RBC) [Ratio] 13.5 % 11.6-14.6 [facility] Erythrocyte distribution wid th standard deviationOrdered By: Safia Ruelas on 10-01-2024 Erythrocyte distribution width (RBC) [Ratio] 46.2 fl High 35.1-43.9 [facility] Glomerular filtration rate ( GFR) estimation/1.73 sq m using serum, plasma, or whole bOrdered By: Safia Ruelas on 10-01-2024 GFR/1.73 sq M.predicted among non-blacks MDRD (S/P/Bld) [Vol rate/Area] 63 mL/min/{1.73_m2} >60 [facility] Comment on above: mL/min/1.73m2 CKD-EP I Creatinine Equation (2020) Hematocrit Auto (Bld) [Volum e fraction]Ordered By: Safia Ruelas on 10-01-2024 Hematocrit (Bld) [Volume fraction] 38.7 % 37-47 [facility] Hemoglobin measurementOrdere d By: Safia Ruelas on 10-01-2024 Hemoglobin (Bld) [Mass/Vol] 12.5 g/dL 12.0-15.0 [facility] Immature granulocytes/100 WB C Auto (Bld)Ordered By: Safia Ruelas on 10-01-2024 Immature granulocytes/100 WBC (Bld) 0.800 % 0.0-0.9 [facility] Comment on above: IG% - Immature Granu locytes (promyelocytes, myelocytes and metamyelocytes) > 1% indicates that a LEFT SHIFT is Present. MCV (mean corpuscular volume ) determinationOrdered By: Safia Ruelas on 10-01-2024 MCV (RBC) [Entitic vol] 93.3 fL 81-99 [facility] Mean corpuscular hemoglobin (MCH) determinationOrdered By: Safia Ruelas on 10-01-2024 MCH (RBC) [Entitic mass] 30.1 pg 27.0-32.0 [facility] Mean corpuscular hemoglobin concentration (MCHC) determinationOrdered By: Safia Ruelas on 10-01-2024 MCHC (RBC) [Mass/Vol] 32.3 g/dL 32-36 [facility] Mean platelet volume determi nationOrdered By: Safia Ruelas on 10-01-2024 Platelet mean volume (Bld) [Entitic vol] 11.7 fL 6.2-12.0 [facility] Monocyte percentageOrdered B y: Safia Ruelas on 10-01-2024 Monocytes/100 WBC (Bld) 12.7 % High 0-10 [facility] Neutrophil percentageOrdered By: Safia Ruelas on 10-01-2024 Neutrophils/100 WBC (Bld) 60.9 % 47-70 [facility] Nucleated red blood cell per centageOrdered By: Safia Ruelas on 10-01-2024 Nucleated RBC/100 WBC (Bld) [Ratio] 0 % 0-5 [facility] Platelet countOrdered By: Balbir Ruelas on 10-01-2024 Platelets (Bld) [#/Vol] 371 10*3/uL 150-450 [facility] Potassium measurement (mass/ volume)Ordered By: Safia Ruelas on 10-01-2024 Potassium (Unsp spec) [Mass/Vol] 4.2 mmol/L 3.3-5.1 [facility] RBC Auto (Bld) [#/Vol]Ordere d By: Safia Ruelas on 10-01-2024 RBC (Bld) [#/Vol] 4.15 10*6/uL Low 4.2-5.4 [facility] Serum creatinine measurement (mass/volume)Ordered By: Balbirsherry Ruelas on 10-01-2024 Creatinine [Mass/Vol] 0.93 mg/dL 0.70-1.20 [facility] Serum glucose measurement (m ass/volume)Ordered By: Safia Griderbonimelanie on 10-01-2024 Glucose [Mass/Vol] 93 mg/dL 70-99 [facility] Serum or plasma calcium dayna urement (mass/volume)Ordered By: Balbirjean mariedesireeskye Griderbonimelanie on 10-01-2024 Calcium [Mass/Vol] 9.5 mg/dL 7.6-11.0 [facility] Serum or plasma urea nitroge n measurement (mass/volume)Ordered By: Balbirsherry Griderbonimelanie on 10-01-2024 Urea nitrogen [Mass/Vol] 23 mg/dL High 4-19 [facility] Sodium levelOrdered By: Leonides chou Cheobonimelanie on 10-01-2024 Sodium [Moles/Vol] 135 mmol/L 133-145 [facility] White blood cell (WBC) count Ordered By: Balbirsherry Griderbonimelanie on 10-01-2024 WBC (Bld) [#/Vol] 10.6 10*3/uL 4.4-11.0 [facility] Clostridium difficile detect ion by polymerase chain reactionOrdered By: Safia Ruelas on 09-29-2024 C. difficile DNA CHUCKY+probe Ql (Unsp spec) [facility] Absolute lymphocyte countOrd ered By: Balbirjean mariedesireeskye Griderbonimelanie on 09-24-2024 Lymphocytes Auto (Unsp spec) [#/Vol] 2.72 10*3/uL 0.83-4.51 [facility] Absolute neutrophil countOrd ered By: Balbirjean mariedesireeskye Griderbonimelanie on 09-24-2024 Neutrophils (Bld) [#/Vol] 6.3 10*3/uL 2.0-7.7 [facility] Anion gap in Serum or Plasma Ordered By: Safia Ruelas on 09-24-2024 Anion gap [Moles/Vol] 12 mmol/L 5-15 [facility] Automated lymphocyte count a s percentage of total leukocytesOrdered By: Safia Ruelas on 09-24-2024 Lymphocytes/100 WBC Auto (Unsp spec) 26.3 % 19-41 [facility] BUN/creatinine ratioOrdered By: Safia Ruelas on 09-24-2024 Urea nitrogen/Creatinine [Mass ratio] 36.4 mg/mg High 10-20 [facility] Basophil percentageOrdered B y: Safia Ruelas on 09-24-2024 Basophils/100 WBC (Bld) 0.7 % 0-1 [facility] Carbon dioxide, total [Moles /volume] in Central venous bloodOrdered By: Safia Ruelas on 09-24-2024 CO2 [Moles/Vol] 24.1 mmol/L 21.0-32.0 [facility] Chloride assayOrdered By: Balbir Ruelas on 09-24-2024 Chloride [Moles/Vol] 100 mmol/L 98-108 [facility] Eosinophil percentageOrdered By: Safia Ruelas on 09-24-2024 Eosinophils/100 WBC (Bld) 2.7 % 0-5 [facility] Erythrocyte distribution wid th ratioOrdered By: Safia Ruelas on 09-24-2024 Erythrocyte distribution width (RBC) [Ratio] 13.6 % 11.6-14.6 [facility] Erythrocyte distribution wid th standard deviationOrdered By: Safia Ruelas on 09-24-2024 Erythrocyte distribution width (RBC) [Ratio] 47.1 fl High 35.1-43.9 [facility] Glomerular filtration rate ( GFR) estimation/1.73 sq m using serum, plasma, or whole bOrdered By: Safia Ruelas on 09-24-2024 GFR/1.73 sq M.predicted among non-blacks MDRD (S/P/Bld) [Vol rate/Area] 62 mL/min/{1.73_m2} >60 [facility] Comment on above: mL/min/1.73m2 CKD-EP I Creatinine Equation (2020) Hematocrit Auto (Bld) [Volum e fraction]Ordered By: Safia Ruelas on 09-24-2024 Hematocrit (Bld) [Volume fraction] 41.2 % 37-47 [facility] Hemoglobin measurementOrdere d By: Safia Ruelas on 09-24-2024 Hemoglobin (Bld) [Mass/Vol] 13.0 g/dL 12.0-15.0 [facility] Immature granulocytes/100 WB C Auto (Bld)Ordered By: Safia Ruelas on 09-24-2024 Immature granulocytes/100 WBC (Bld) 1.000 % High 0.0-0.9 [facility] Comment on above: IG% - Immature Granu locytes (promyelocytes, myelocytes and metamyelocytes) > 1% indicates that a LEFT SHIFT is Present. MCV (mean corpuscular volume ) determinationOrdered By: Safia Ruelas on 09-24-2024 MCV (RBC) [Entitic vol] 94.3 fL 81-99 [facility] Mean corpuscular hemoglobin (MCH) determinationOrdered By: Safia Ruelas on 09-24-2024 MCH (RBC) [Entitic mass] 29.7 pg 27.0-32.0 [facility] Mean corpuscular hemoglobin concentration (MCHC) determinationOrdered By: Safia Ruelas on 09-24-2024 MCHC (RBC) [Mass/Vol] 31.6 g/dL Low 32-36 [facility] Mean platelet volume determi nationOrdered By: Safia Ruelas on 09-24-2024 Platelet mean volume (Bld) [Entitic vol] 11.3 fL 6.2-12.0 [facility] Monocyte percentageOrdered B y: Safia Ruelas on 09-24-2024 Monocytes/100 WBC (Bld) 8.9 % 0-10 [facility] Neutrophil percentageOrdered By: Safia Ruelas on 09-24-2024 Neutrophils/100 WBC (Bld) 60.4 % 47-70 [facility] Nucleated red blood cell per centageOrdered By: Safia Ruelas on 09-24-2024 Nucleated RBC/100 WBC (Bld) [Ratio] 0 % 0-5 [facility] Platelet countOrdered By: Balbir ajongskye Griderbonimelanie on 09-24-2024 Platelets (Bld) [#/Vol] 441 10*3/uL 150-450 [facility] Potassium measurement (mass/ volume)Ordered By: Balbirjean mariedesireeskye Griderbonimelanie on 09-24-2024 Potassium (Unsp spec) [Mass/Vol] 4.3 mmol/L 3.3-5.1 [facility] RBC Auto (Bld) [#/Vol]Ordere d By: Leonidesjosé antonio Cheoquyen on 09-24-2024 RBC (Bld) [#/Vol] 4.37 10*6/uL 4.2-5.4 [facility] Serum creatinine measurement (mass/volume)Ordered By: Balbirjean mariedesireeskye Griderbonimelanie on 09-24-2024 Creatinine [Mass/Vol] 0.93 mg/dL 0.70-1.20 [facility] Serum glucose measurement (m ass/volume)Ordered By: Safia Griderbonimelanie on 09-24-2024 Glucose [Mass/Vol] 48 mg/dL Low 70-99 [facility] Serum or plasma calcium dayna urement (mass/volume)Ordered By: Balbirjean mariejosé antonio Cheobonimelanie on 09-24-2024 Calcium [Mass/Vol] 9.5 mg/dL 7.6-11.0 [facility] Serum or plasma urea nitroge n measurement (mass/volume)Ordered By: Safia Griderbonimelanie on 09-24-2024 Urea nitrogen [Mass/Vol] 34 mg/dL High 4-19 [facility] Sodium levelOrdered By: Leonides josé antonio Cheobonimelanie on 09-24-2024 Sodium [Moles/Vol] 136 mmol/L 133-145 [facility] White blood cell (WBC) count Ordered By: Balbirjean mariedesireeskye Griderbonimelanie on 09-24-2024 WBC (Bld) [#/Vol] 10.4 10*3/uL 4.4-11.0 [facility] Absolute lymphocyte countOrd ered By: Safia Ruelas on 09-17-2024 Lymphocytes Auto (Unsp spec) [#/Vol] 2.52 10*3/uL 0.83-4.51 [facility] Absolute neutrophil countOrd ered By: Safia Ruelas on 09-17-2024 Neutrophils (Bld) [#/Vol] 5.8 10*3/uL 2.0-7.7 [facility] Anion gap in Serum or Plasma Ordered By: Safia Ruelas on 09-17-2024 Anion gap [Moles/Vol] 12 mmol/L 5-15 [facility] Automated lymphocyte count a s percentage of total leukocytesOrdered By: Safia Ruelas on 09-17-2024 Lymphocytes/100 WBC Auto (Unsp spec) 26.3 % 19-41 [facility] BUN/creatinine ratioOrdered By: jean mariebrookparkskye Ruelas on 09-17-2024 Urea nitrogen/Creatinine [Mass ratio] 45.9 mg/mg High 10-20 [facility] Basophil percentageOrdered B y: Safia Ruelas on 09-17-2024 Basophils/100 WBC (Bld) 0.6 % 0-1 [facility] Calculated very low density lipoprotein (VLDL) cholesterol measurementOrdered By: sherry Ruelas on 09-17-2024 Calculated very low density lipoprotein (VLDL) cholesterol measurement 22 mg/dL 5-40 [facility] Carbon dioxide, total [Moles /volume] in Central venous bloodOrdered By: Safia Ruelas on 09-17-2024 CO2 [Moles/Vol] 24.5 mmol/L 21.0-32.0 [facility] Chloride assayOrdered By: Balbir Ruelas on 09-17-2024 Chloride [Moles/Vol] 98 mmol/L 98-108 [facility] Eosinophil percentageOrdered By: Safia Ruelas on 09-17-2024 Eosinophils/100 WBC (Bld) 3.2 % 0-5 [facility] Erythrocyte distribution wid th ratioOrdered By: sherry Ruelas on 09-17-2024 Erythrocyte distribution width (RBC) [Ratio] 13.4 % 11.6-14.6 [facility] Erythrocyte distribution wid th standard deviationOrdered By: sherry Ruelas on 09-17-2024 Erythrocyte distribution width (RBC) [Ratio] 45.4 fl High 35.1-43.9 [facility] Glomerular filtration rate ( GFR) estimation/1.73 sq m using serum, plasma, or whole bOrdered By: Safia Ruelas on 09-17-2024 GFR/1.73 sq M.predicted among non-blacks MDRD (S/P/Bld) [Vol rate/Area] 69 mL/min/{1.73_m2} >60 [facility] Comment on above: mL/min/1.73m2 CKD-EP I Creatinine Equation (2020) Hematocrit Auto (Bld) [Volum e fraction]Ordered By: Safia Ruelas on 09-17-2024 Hematocrit (Bld) [Volume fraction] 38.8 % 37-47 [facility] Hemoglobin measurementOrdere d By: Safia Ruelas on 09-17-2024 Hemoglobin (Bld) [Mass/Vol] 12.6 g/dL 12.0-15.0 [facility] Immature granulocytes/100 WB C Auto (Bld)Ordered By: Safia Ruelas on 09-17-2024 Immature granulocytes/100 WBC (Bld) 0.700 % 0.0-0.9 [facility] Comment on above: IG% - Immature Granu locytes (promyelocytes, myelocytes and metamyelocytes) > 1% indicates that a LEFT SHIFT is Present. LDL calc ser/plasOrdered By: Safia Ruelas on 09-17-2024 Cholesterol in LDL [Mass/Vol] 120 mg/dL [facility] Comment on above: Zakqiryewn=992-068 m g/dL & Higher Dufi=077 mg/dL or greater MCV (mean corpuscular volume ) determinationOrdered By: Safia Ruelas on 09-17-2024 MCV (RBC) [Entitic vol] 91.7 fL 81-99 [facility] Mean corpuscular hemoglobin (MCH) determinationOrdered By: Safia Ruelas on 09-17-2024 MCH (RBC) [Entitic mass] 29.8 pg 27.0-32.0 [facility] Mean corpuscular hemoglobin concentration (MCHC) determinationOrdered By: Safia Ruelas on 09-17-2024 MCHC (RBC) [Mass/Vol] 32.5 g/dL 32-36 [facility] Mean platelet volume determi nationOrdered By: Safia Ruelas on 09-17-2024 Platelet mean volume (Bld) [Entitic vol] 11.4 fL 6.2-12.0 [facility] Monocyte percentageOrdered B y: Safia Ruelas on 09-17-2024 Monocytes/100 WBC (Bld) 8.5 % 0-10 [facility] Neutrophil percentageOrdered By: Safia Ruelas on 09-17-2024 Neutrophils/100 WBC (Bld) 60.7 % 47-70 [facility] Nucleated red blood cell per centageOrdered By: Safia Ruelas on 09-17-2024 Nucleated RBC/100 WBC (Bld) [Ratio] 0 % 0-5 [facility] Platelet countOrdered By: Balbir Ruelas on 09-17-2024 Platelets (Bld) [#/Vol] 311 10*3/uL 150-450 [facility] Potassium measurement (mass/ volume)Ordered By: Safia Ruelas on 09-17-2024 Potassium (Unsp spec) [Mass/Vol] 4.1 mmol/L 3.3-5.1 [facility] RBC Auto (Bld) [#/Vol]Ordere d By: Safia Ruelas on 09-17-2024 RBC (Bld) [#/Vol] 4.23 10*6/uL 4.2-5.4 [facility] Screening total cholesterol/ high density lipoprotein (HDL) cholesterol ratioOrdered By: Safia Ruelas on 09-17-2024 Cholesterol.total/Alta sterol in HDL [Mass ratio] 5.38 {ratio} [facility] Serum creatinine measurement (mass/volume)Ordered By: Safia Ruelas on 09-17-2024 Creatinine [Mass/Vol] 0.86 mg/dL 0.70-1.20 [facility] Serum glucose measurement (m ass/volume)Ordered By: Safia Ruelas on 09-17-2024 Glucose [Mass/Vol] 216 mg/dL High 70-99 [facility] Serum or plasma calcium dayna urement (mass/volume)Ordered By: Safia Ruelas on 09-17-2024 Calcium [Mass/Vol] 9.4 mg/dL 7.6-11.0 [facility] Serum or plasma cholesterol in HDL measurement (mass/volume)Ordered By: Safia Ruelas on 09-17-2024 Cholesterol in HDL [Mass/Vol] 33 mg/dL Low >40 [facility] Comment on above: National Cholesterol Education Program (NCEP) guidelines:<40 mg/dL: Low HDL-cholesterol (major risk factor for CHD)>= 60 mg/dL: High HDL-cholesterol (negative risk factor for CHD)HDL-cholesterol is affected by a number of factors, e.g. smoking, exercise, hormones, sex and age. Serum or plasma cholesterol measurement (mass/volume)Ordered By: Safia Ruelas on 09-17-2024 Cholesterol [Mass/Vol] 175 mg/dL <201 [facility] Comment on above: Cholesterol level, D esirable <200 mg/dLBorderline high cholesterol 200-239 mg/dLHigh cholesterol >=240 mg/dLRecommendations of the NCEP Adult Treatment Panel for the following risk-cutoff thresholds for the [place] population. Serum or plasma urea nitroge n measurement (mass/volume)Ordered By: Safia Ruelas on 09-17-2024 Urea nitrogen [Mass/Vol] 39 mg/dL High 4-19 [facility] Sodium levelOrdered By: Leonides Ruelas on 09-17-2024 Sodium [Moles/Vol] 134 mmol/L 133-145 [facility] TSH DL <= 0.005 mIU/L QnOrde red By: Safia Ruelas on 09-17-2024 TSH Qn 3.500 uIU/mL 0.300-4.200 [facility] Triglycerides measurementOrd ered By: Safia Ruelas on 09-17-2024 Triglyceride [Mass/Vol] 111 mg/dL <199 [facility] Comment on above: The drugs N-Acetylcy steine and Metamizole may falsely depress this assay. Normal range: <150 mg/dLBorderline High: 150-199 mg/dLHigh: 200-499 mg/dLVery High: >500 mg/dL White blood cell (WBC) count Ordered By: Balbirjean mariedesireeskye Enricomelanie on 09-17-2024 WBC (Bld) [#/Vol] 9.6 10*3/uL 4.4-11.0 [facility] Absolute lymphocyte countOrd ered By: Balbirjean mariejosé antonio Westonmelanie on 09-10-2024 Lymphocytes Auto (Unsp spec) [#/Vol] 2.11 10*3/uL 0.83-4.51 [facility] Absolute neutrophil countOrd ered By: Safia Westonmelanie on 09-10-2024 Neutrophils (Bld) [#/Vol] 8.1 10*3/uL High 2.0-7.7 [facility] Anion gap in Serum or Plasma Ordered By: Leonidesdesireeskye Griderbonimelanie on 09-10-2024 Anion gap [Moles/Vol] 13 mmol/L 5-15 [facility] Automated lymphocyte count a s percentage of total leukocytesOrdered By: Leonidesdesireeskye Griderbonimelanie on 09-10-2024 Lymphocytes/100 WBC Auto (Unsp spec) 17.9 % Low 19-41 [facility] BUN/creatinine ratioOrdered By: Safia Cheobonimelanie on 09-10-2024 Urea nitrogen/Creatinine [Mass ratio] 29.1 mg/mg High 10-20 [facility] Basophil percentageOrdered B y: Balbirjean mariedesireeskye Griderbonimelanie on 09-10-2024 Basophils/100 WBC (Bld) 0.3 % 0-1 [facility] Bilirubin, totalOrdered By: Balbirjean mariejosé antonio Cheobonimelanie on 09-10-2024 Bilirubin [Mass/Vol] 0.55 mg/dL 0.00-1.30 [facility] Carbon dioxide, total [Moles /volume] in Central venous bloodOrdered By: Balbirjean mariejosé antonio Cheobonimelanie on 09-10-2024 CO2 [Moles/Vol] 23.6 mmol/L 21.0-32.0 [facility] Chloride assayOrdered By: Balbir randallskye Griderbonimelanie on 09-10-2024 Chloride [Moles/Vol] 97 mmol/L Low 98-108 [facility] Eosinophil percentageOrdered By: Safia Cheobonimelanie on 09-10-2024 Eosinophils/100 WBC (Bld) 0.5 % 0-5 [facility] Erythrocyte distribution wid th ratioOrdered By: Safia Ruelas on 09-10-2024 Erythrocyte distribution width (RBC) [Ratio] 13.4 % 11.6-14.6 [facility] Erythrocyte distribution wid th standard deviationOrdered By: Safia Ruelas on 09-10-2024 Erythrocyte distribution width (RBC) [Ratio] 45.2 fl High 35.1-43.9 [facility] Glomerular filtration rate ( GFR) estimation/1.73 sq m using serum, plasma, or whole bOrdered By: jean mariebrookparkskye Ruelas on 09-10-2024 GFR/1.73 sq M.predicted among non-blacks MDRD (S/P/Bld) [Vol rate/Area] 59 mL/min/{1.73_m2} Low >60 [facility] Comment on above: mL/min/1.73m2 CKD-EP I Creatinine Equation (2020) Hematocrit Auto (Bld) [Volum e fraction]Ordered By: Safia Ruelas on 09-10-2024 Hematocrit (Bld) [Volume fraction] 41.8 % 37-47 [facility] Hemoglobin measurementOrdere d By: Safia Ruelas on 09-10-2024 Hemoglobin (Bld) [Mass/Vol] 13.4 g/dL 12.0-15.0 [facility] Immature granulocytes/100 WB C Auto (Bld)Ordered By: Safia Ruelas 09-10-2024 Immature granulocytes/100 WBC (Bld) 0.800 % 0.0-0.9 [facility] Comment on above: IG% - Immature Granu locytes (promyelocytes, myelocytes and metamyelocytes) > 1% indicates that a LEFT SHIFT is Present. Laboratory - Chemistry and C hemistry - challengeOrdered By: Safia Ruelas on 09-10-2024 AST [Catalytic activity/Vol] 21 U/L <32 [facility] MCV (mean corpuscular volume ) determinationOrdered By: Safia Ruelas 09-10-2024 MCV (RBC) [Entitic vol] 92.5 fL 81-99 [facility] Mean corpuscular hemoglobin (MCH) determinationOrdered By: Safia Ruelas on 09-10-2024 MCH (RBC) [Entitic mass] 29.6 pg 27.0-32.0 [facility] Mean corpuscular hemoglobin concentration (MCHC) determinationOrdered By: Safia Ruelas on 09-10-2024 MCHC (RBC) [Mass/Vol] 32.1 g/dL 32-36 [facility] Mean platelet volume determi nationOrdered By: Safia Ruelas on 09-10-2024 Platelet mean volume (Bld) [Entitic vol] 12.6 fL High 6.2-12.0 [facility] Monocyte percentageOrdered B y: Safia Ruelas on 09-10-2024 Monocytes/100 WBC (Bld) 12.3 % High 0-10 [facility] Neutrophil percentageOrdered By: Safia Ruelas on 09-10-2024 Neutrophils/100 WBC (Bld) 68.2 % 47-70 [facility] Nucleated red blood cell per centageOrdered By: Safia Ruelas on 09-10-2024 Nucleated RBC/100 WBC (Bld) [Ratio] 0 % 0-5 [facility] Platelet countOrdered By: Balbir Ruelas on 09-10-2024 Platelets (Bld) [#/Vol] 190 10*3/uL 150-450 [facility] Potassium measurement (mass/ volume)Ordered By: Safia Ruelas on 09-10-2024 Potassium (Unsp spec) [Mass/Vol] 4.3 mmol/L 3.3-5.1 [facility] RBC Auto (Bld) [#/Vol]Ordere d By: Safia Ruelas on 09-10-2024 RBC (Bld) [#/Vol] 4.52 10*6/uL 4.2-5.4 [facility] Serum creatinine measurement (mass/volume)Ordered By: Safia Ruelas on 09-10-2024 Creatinine [Mass/Vol] 0.98 mg/dL 0.70-1.20 [facility] Serum globulin measurementOr dered By: Safia Ruelas on 09-10-2024 Globulin (S) [Mass/Vol] 3.3 g/dL 2.2-4.2 [facility] Serum glucose measurement (m ass/volume)Ordered By: Safia Ruelas on 09-10-2024 Glucose [Mass/Vol] 181 mg/dL High 70-99 [facility] Serum or plasma alanine raymundo otransferase (ALT) measurementOrdered By: Safia Ruelas on 09-10-2024 ALT [Catalytic activity/Vol] 26 U/L <35 [facility] Serum or plasma albumin dayna urement (mass/volume)Ordered By: Safia Ruelas on 09-10-2024 Albumin [Mass/Vol] 3.4 g/dL 3.4-4.8 [facility] Serum or plasma albumin/glob ulin mass ratioOrdered By: Safia Ruelas 09-10-2024 Albumin/Globulin [Mass ratio] 1.0 {ratio} 0.9-2.4 [facility] Serum or plasma alkaline hannah sphatase measurementOrdered By: Safia Ruelas 09-10-2024 ALP [Catalytic activity/Vol] 114 U/L High 35-104 [facility] Serum or plasma calcium dayna urement (mass/volume)Ordered By: Safia Ruelas 09-10-2024 Calcium [Mass/Vol] 9.3 mg/dL 7.6-11.0 [facility] Serum or plasma urea nitroge n measurement (mass/volume)Ordered By: Safia Ruelas 09-10-2024 Urea nitrogen [Mass/Vol] 29 mg/dL High 4-19 [facility] Sodium levelOrdered By: Leonides Ruelas on 09-10-2024 Sodium [Moles/Vol] 133 mmol/L 133-145 [facility] Total proteinOrdered By: Augusto Ruelas on 09-10-2024 Protein [Mass/Vol] 6.7 g/dL 5.9-8.4 [facility] White blood cell (WBC) count Ordered By: Safia Ruelas 09-10-2024 WBC (Bld) [#/Vol] 11.8 10*3/uL High 4.4-11.0 [facility] LABORATORYOrdered By: Abigail Smith on 09-09-2024 Glucose [Mass/Vol] 212 mg/dL High 82 - 115 mg/dL [employer] Work Phone: Glucose [Mass/Vol] 226 mg/dL High 82 - 115 mg/dL [employer] Work Phone: LABORATORYOrdered By: Zoila Zarco on 09-08-2024 Glucose [Mass/Vol] 149 mg/dL High 82 - 115 mg/dL [employer] Work Phone: LABORATORYOrdered By: Rob Palmer on 09-08-2024 Blood Glucose Testing Reason Routine (09/08/24 6:16 PM) [employer] Work Phone: Blood Glucose Testing Reason Routine (09/08/24 11:58 AM) [employer] Work Phone: LABORATORYOrdered By: Rob Palmer on 09-07-2024 Blood Glucose Testing Reason Routine (09/07/24 4:46 PM) [employer] Work Phone: .Auto Diffon 09-03-2024 Basophil, Absolute 0.1 10 3/mcL Normal 0.0-0.3 [facility] Comment on above: Performed By: #### A DIFF, CBC, ANEU, GFR, BMP #### [address] [address] Basophils/100 WBC (Bld) 1.0 % Normal 0.0-2.5 [facility] Comment on above: Performed By: #### A DIFF, CBC, ANEU, GFR, BMP #### [address] [address] Eosinophil, Absolute 0.2 10 3/mcL Normal 0.0-0.7 [facility] Comment on above: Performed By: #### A DIFF, CBC, ANEU, GFR, BMP #### [address] [address] Eosinophils/100 WBC (Bld) 3.2 % Normal 0.0-6.0 [facility] Comment on above: Performed By: #### A DIFF, CBC, ANEU, GFR, BMP #### [address] [address] Lymphocyte, Absolute 2.0 10 3/mcL Normal 0.9-4.3 [facility] Comment on above: Performed By: #### A DIFF, CBC, ANEU, GFR, BMP #### [address] [address] Lymphocytes/100 WBC (Bld) 26.6 % Normal 20.0-40.0 [facility] Comment on above: Performed By: #### A DIFF, CBC, ANEU, GFR, BMP #### [address] [address] Monocyte, Absolute 0.7 10 3/mcL Normal 0.1-1.4 [facility] Comment on above: Performed By: #### A DIFF, CBC, ANEU, GFR, BMP #### [address] [address] Monocytes/100 WBC (Bld) 9.7 % Normal 2.0-13.0 [facility] Comment on above: Performed By: #### A DIFF, CBC, ANEU, GFR, BMP #### [address] [address] Neutrophils/100 WBC (Bld) 59.5 % Normal 50.0-75.0 [facility] Comment on above: Performed By: #### A DIFF, CBC, ANEU, GFR, BMP #### [address] [address] .GFRon 09-03-2024 Estimated Glomerular Filtration Rate 57 ml/min/1.73sqm Normal [facility] Comment on above: Result Comment: Stages [...] CBC, ANEU, GFR, BMP #### [place] [address] .NEUABSon 09-03-2024 Neutrophil, Absolute 4.5 10 3/mcL Normal 2.3-8.1 [facility] Comment on above: Performed By: #### A DIFF, CBC, ANEU, GFR, BMP #### [place] [address] B12on 09-03-2024 Cobalamin (Vitamin B12) [Mass/Vol] 834 pg/mL Normal 211-911 [facility] Comment on above: Performed By: #### A DIFF, CBC, ANEU, GFR, BMP #### [place] [address] CBCon 09-03-2024 Erythrocyte distribution width (RBC) [Ratio] 14.7 % Normal 11.5-15.5 [facility] Comment on above: Performed By: #### A DIFF, CBC, ANEU, GFR, BMP #### [place] [address] Hematocrit (Bld) [Volume fraction] 39.7 % Normal 34.0-46.0 [facility] Comment on above: Performed By: #### A DIFF, CBC, ANEU, GFR, BMP #### [place] [address] Hgb 13.2 G/dL Normal 12.0-16.0 [facility] Comment on above: Performed By: #### A DIFF, CBC, ANEU, GFR, BMP #### [place] [address] MCH (RBC) [Entitic mass] 30.6 pg Normal 27.0-33.0 [facility] Comment on above: Performed By: #### A DIFF, CBC, ANEU, GFR, BMP #### [address] [address] MCHC 33.3 G/dL Normal 32.0-36.0 [facility] Comment on above: Performed By: #### A DIFF, CBC, ANEU, GFR, BMP #### [address] [address] MCV (RBC) [Entitic vol] 91.9 fL Normal 80.0-99.0 [facility] Comment on above: Performed By: #### A DIFF, CBC, ANEU, GFR, BMP #### [place] [id number] Platelet 228 10 3/mcL Normal 150-450 [facility] Comment on above: Performed By: #### A DIFF, CBC, ANEU, GFR, BMP #### [place] [address] Platelet mean volume (Bld) [Entitic vol] 10.1 fL Normal 6.6-10.5 [facility] Comment on above: Performed By: #### A DIFF, CBC, ANEU, GFR, BMP #### [place] [id number] RBC 4.32 10 6/mcL Normal 4.10-5.30 [facility] Comment on above: Performed By: #### A DIFF, CBC, ANEU, GFR, BMP #### [address] [address] WBC 7.6 10 3/mcL Normal 4.5-10.8 [facility] Comment on above: Performed By: #### A DIFF, CBC, ANEU, GFR, BMP #### [address] [address] CMPon 09-03-2024 Albumin Level 3.0 G/dL Low 3.2-4.8 [facility] Comment on above: Performed By: #### A DIFF, CBC, ANEU, GFR, BMP #### [place] [id number] Albumin/Globulin [Mass ratio] 0.9 {ratio} Normal 0.9-1.6 [facility] Comment on above: Performed By: #### A DIFF, CBC, ANEU, GFR, BMP #### [address] [address] ALP [Catalytic activity/Vol] 115 U/L Normal 38-126 [facility] Comment on above: Performed By: #### A DIFF, CBC, ANEU, GFR, BMP #### [address] [address] ALT [Catalytic activity/Vol] 37 U/L Normal 10-49 [facility] Comment on above: Performed By: #### A DIFF, CBC, ANEU, GFR, BMP #### [address] [address] AST [Catalytic activity/Vol] 31 U/L Normal 8-34 [facility] Comment on above: Performed By: #### A DIFF, CBC, ANEU, GFR, BMP #### [address] [address] Bili Total 0.50 mg/dL Normal 0.20-1.20 [facility] Comment on above: Result Comment: Use of this assay is not recommended for patients undergoing treatment with eltrombopag due to the potential for falsely elevated results. Performed By: #### A DIFF, CBC, ANEU, GFR, BMP #### [place] [id number] BUN/Creatinine Ratio 29.7 ratio High 10.0-22.0 [facility] Comment on above: Performed By: #### A DIFF, CBC, ANEU, GFR, BMP #### [address] [address] Calcium [Mass/Vol] 9.6 mg/dL Normal 8.7-10.4 [facility] Comment on above: Performed By: #### A DIFF, CBC, ANEU, GFR, BMP #### [address] [address] Chloride [Moles/Vol] 101 mmol/L Normal 98-110 [facility] Comment on above: Performed By: #### A DIFF, CBC, ANEU, GFR, BMP #### [address] [address] CO2 [Moles/Vol] 27 mmol/L Normal 22-32 [facility] Comment on above: Performed By: #### A DIFF, CBC, ANEU, GFR, BMP #### [address] [address] Creatinine [Mass/Vol] 1.01 mg/dL Normal 0.50-1.20 [facility] Comment on above: Result Comment: Test ing performed on DGIT analyzer using enzymatic creatinine methodology. Performed By: #### A DIFF, CBC, ANEU, GFR, BMP #### [address] [address] Electrolyte Balance 10.0 mEq/L Normal 4.0-15.0 [facility] Comment on above: Performed By: #### A DIFF, CBC, ANEU, GFR, BMP #### [address] [address] Globulin 3.4 G/dL Normal 1.5-3.8 [facility] Comment on above: Performed By: #### A DIFF, CBC, ANEU, GFR, BMP #### [place] [id number] Glucose [Mass/Vol] 187 mg/dL High 82-115 [facility] Comment on above: Performed By: #### A DIFF, CBC, ANEU, GFR, BMP #### [place] [id number] Potassium [Moles/Vol] 4.6 mmol/L Normal 3.5-5.0 [facility] Comment on above: Performed By: #### A DIFF, CBC, ANEU, GFR, BMP #### [place] [id number] Sodium [Moles/Vol] 138 mmol/L Normal 136-145 [facility] Comment on above: Performed By: #### A DIFF, CBC, ANEU, GFR, BMP #### [place] [id number] Total Protein 6.4 G/dL Normal 5.7-8.2 [facility] Comment on above: Performed By: #### A DIFF, CBC, ANEU, GFR, BMP #### [place] [id number] Urea nitrogen [Mass/Vol] 30.0 mg/dL High 8.0-22.0 [facility] Comment on above: Performed By: #### A DIFF, CBC, ANEU, GFR, BMP #### [facility] [address] [place] [address] LABORATORYOrdered By: Ann Carrillo on 09-03-2024 Glucose [Mass/Vol] 270 mg/dL [facility] [employer] [place] Work Phone: LABORATORYOrdered By: SYSTEM SYSTEM on [...] SS Comment on above: Interpretive Data: T anna marieing performed on [employer] CH analyzer using enzymatic creatinine methodology. Electrolyte [...] TSHon 09-03-2024 TSH 3.920 mIU/mL Normal 0.550-4.780 [facility] Comment on above: Performed By: #### A DIFF, CBC, ANEU, GFR, BMP #### [place] [address] CT HEAD OR BRAIN W/O CONTRAS Ton [...] 09/02/2024 3:10:44 PM Ordering Provider: [facility]30[facility]2024 [facility] LINDSAY ACUNA ([id number]) 1945 F Date Time Provider Department 08/30/24 KAMERON CARUSO [facility] During your visit today, we recorded the following information about you: Jaiden Paulino, RN 08/30/2024 9:11 AM [facility] with dx: stroke, and transferred [facility]. [facility] SN PT OT ST AND HHAide. Asking if pcp agreeable to follow for [facility]. Please phone Marya with verbal: [phone] Mj Glover APRN.[facility] 08/30/2024 9:19 AM Signed Please let know that Dr. Caruso's team will follow orders. Okay to proceed. Mj Glover APRN.Fouzia Reynoso LPN 08/30/2024 10:09 AM Signed Marya with [facility] notified. Allergies As of Date: 08/30/2024 Noted Allergy Reaction BENZOCAINE 07/08/2005 2 - Rash COCAINE 05/28/2008 Comments: Inverted T PERFUMES 07/08/2005 12 - Shortness of Breath Comments: coughes and chokes SULFA (SULFONAMIDE ANTIBIOTICS) 07/08/2005 5 - Intolerance Date Reviewed: 06/26/2024 Reviewed by: Bret Arambula LPN - Fully Assessed Reason for Visit: [facility] requesting verbal agree to follow [Other] Prescriptions [...] Status:Closed by FOUZIA MILLER on 08/30/24 Normal [facility] .Auto Diffon 08-26-2024 Basophil, Absolute 0.1 10 3/mcL Normal 0.0-0.3 [facility] Comment on above: Performed By: #### A DIFF, CBC, ANEU, GFR, BMP #### [address] [address] Basophils/100 WBC (Bld) 1.0 % Normal 0.0-2.5 [facility] Comment on above: Performed By: #### A DIFF, CBC, ANEU, GFR, BMP #### [place] [id number] [place] [address] Eosinophil, Absolute 0.3 10 3/mcL Normal 0.0-0.7 [facility] Comment on above: Performed By: #### A DIFF, CBC, ANEU, GFR, BMP #### [facility] [address] [place] [address] Eosinophils/100 WBC (Bld) 4.2 % Normal 0.0-6.0 [facility] Comment on above: Performed By: #### A DIFF, CBC, ANEU, GFR, BMP #### [address] [address] Lymphocyte, Absolute 2.2 10 3/mcL Normal 0.9-4.3 [facility] Comment on above: Performed By: #### A DIFF, CBC, ANEU, GFR, BMP #### [address] [address] Lymphocytes/100 WBC (Bld) 26.3 % Normal 20.0-40.0 [facility] Comment on above: Performed By: #### A DIFF, CBC, ANEU, GFR, BMP #### [address] [address] Monocyte, Absolute 0.9 10 3/mcL Normal 0.1-1.4 [facility] Comment on above: Performed By: #### A DIFF, CBC, ANEU, GFR, BMP #### [address] [address] Monocytes/100 WBC (Bld) 11.4 % Normal 2.0-13.0 [facility] Comment on above: Performed By: #### A DIFF, CBC, ANEU, GFR, BMP #### [address] [address] Neutrophils/100 WBC (Bld) 57.1 % Normal 50.0-75.0 [facility] Comment on above: Performed By: #### A DIFF, CBC, ANEU, GFR, BMP #### [address] [address] .GFRon 08-26-2024 Estimated Glomerular Filtration Rate 59 ml/min/1.73sqm Normal [facility] Comment on above: Result Comment: Stages [...] A DIFF, CBC, ANEU, GFR, BMP #### [address] [address] .NEUABSon 08-26-2024 Neutrophil, Absolute 4.7 10 3/mcL Normal 2.3-8.1 [facility] Comment on above: Performed By: #### A DIFF, CBC, ANEU, GFR, BMP #### [place] [id number] [facility] BUN/Creatinine Ratio 35.1 ratio High 10.0-22.0 [facility] Comment on above: Performed By: #### A DIFF, CBC, ANEU, GFR, BMP #### [place] [address] Calcium [Mass/Vol] 9.8 mg/dL Normal 8.7-10.4 [facility] Comment on above: Performed By: #### A DIFF, CBC, ANEU, GFR, BMP #### [place] [id number] Chloride [Moles/Vol] 98 mmol/L Normal 98-110 [facility] Comment on above: Performed By: #### A DIFF, CBC, ANEU, GFR, BMP #### [place] [id number] CO2 [Moles/Vol] 25 mmol/L Normal 22-32 [facility] Comment on above: Performed By: #### A DIFF, CBC, ANEU, GFR, BMP #### [place] [address] Creatinine [Mass/Vol] 0.97 mg/dL Normal 0.50-1.20 [facility] Comment on above: Result Comment: Test ing performed on DGIT analyzer using enzymatic creatinine methodology. Performed By: #### A DIFF, CBC, ANEU, GFR, BMP #### [place] [address] Electrolyte Balance 12.0 mEq/L Normal 4.0-15.0 [facility] Comment on above: Performed By: #### A DIFF, CBC, ANEU, GFR, BMP #### [place] [id number] Glucose [Mass/Vol] 160 mg/dL High 82-115 [facility] Comment on above: Performed By: #### A DIFF, CBC, ANEU, GFR, BMP #### [place] [id number] Potassium [Moles/Vol] 4.7 mmol/L Normal 3.5-5.0 [facility] Comment on above: Result Comment: Spec imen slightly hemolyzed. Performed By: #### A DIFF, CBC, ANEU, GFR, BMP #### [place] [id number] Sodium [Moles/Vol] 135 mmol/L Low 136-145 [facility] Comment on above: Performed By: #### A DIFF, CBC, ANEU, GFR, BMP #### [place] [address] Urea nitrogen [Mass/Vol] 34.0 mg/dL High 8.0-22.0 [facility] Comment on above: Performed By: #### A DIFF, CBC, ANEU, GFR, BMP #### [place] [id number] CBCon 08-26-2024 Erythrocyte distribution width (RBC) [Ratio] 14.0 % Normal 11.5-15.5 [facility] Comment on above: Performed By: #### A DIFF, CBC, ANEU, GFR, BMP #### [place] [address] Hematocrit (Bld) [Volume fraction] 41.0 % Normal 34.0-46.0 [facility] Comment on above: Performed By: #### A DIFF, CBC, ANEU, GFR, BMP #### [place] [id number] Hgb 13.4 G/dL Normal 12.0-16.0 [facility] Comment on above: Performed By: #### A DIFF, CBC, ANEU, GFR, BMP #### [address] [address] MCH (RBC) [Entitic mass] 30.0 pg Normal 27.0-33.0 [facility] Comment on above: Performed By: #### A DIFF, CBC, ANEU, GFR, BMP #### [place] [id number] MCHC 32.7 G/dL Normal 32.0-36.0 [facility] Comment on above: Performed By: #### A DIFF, CBC, ANEU, GFR, BMP #### [place] [id number] MCV (RBC) [Entitic vol] 91.9 fL Normal 80.0-99.0 [facility] Comment on above: Performed By: #### A DIFF, CBC, ANEU, GFR, BMP #### [place] [address] Platelet 297 10 3/mcL Normal 150-450 [facility] Comment on above: Performed By: #### A DIFF, CBC, ANEU, GFR, BMP #### [place] [address] Platelet mean volume (Bld) [Entitic vol] 11.0 fL High 6.6-10.5 [facility] Comment on above: Performed By: #### A DIFF, CBC, ANEU, GFR, BMP #### [place] [id number] RBC 4.46 10 6/mcL Normal 4.10-5.30 [facility] Comment on above: Performed By: #### A DIFF, CBC, ANEU, GFR, BMP #### [place] [address] WBC 8.3 10 3/mcL Normal 4.5-10.8 [facility] Comment on above: Performed By: #### A DIFF, CBC, ANEU, GFR, BMP #### [place] [address] LABORATORYOrdered By: SYSTEM SYSTEM on 08-26-2024 Basophils [...] above: Interpretive Data: T esting performed on DGIT analyzer using enzymatic creatinine methodology. Electrolyte Balance [...] Sign Date: 08/25/2024 2:27:26 PM Ordering Provider: [facility] MAIN XR HUMERUS MINIMUM 2 VIEWS [facility] 08-25-2024 XR HUMERUS MINIMUM 2 VIEWS [...] Sign Date: 08/25/2024 2:26:11 PM Ordering Provider: [facility] MAIN XR SHOULDER MINIMUM 2 [...] the resident's findings and interpretation. Interpreted by: Jamra Dunne DO Preliminary Report By: Padilla Barrera Electronically signed By Jamar Dunne DO Dictated Date: 08/25/2024 1:54:13 PM Prelim Date: 08/25/2024 1:57:23 PM Sign Date: 08/25/2024 2:26:45 PM Ordering Provider: JACKLYN LINDSEY [facility] MAIN LABORATORYOrdered By: Kala lux on 08-23-2024 Glucose [Mass/Vol] 278 mg/dL [facility] Work Phone: LABORATORYOrdered By: Kala lux on 08-22-2024 Glucose [Mass/Vol] 320 mg/dL [facility] Work Phone: A1Con 08-21-2024 Glucose [Mass/Vol] 194 mg/dL [facility]IN Comment on above: Result Comment: Nancy mated Average Glucose calculated by equation ((28.7xA1C)-46.7) Estimated average glucose (eAG) is a calculated value from Hemoglobin A1C and is sales representative womens health of the average blood glucose level in the last 2-3 month period. Normal range: less than 114 mg/dL Performed By: #### A 1C #### [address] [address] HbA1c (Bld) [Mass fraction] 8.4 % High 4.0-6.0 [facility] Comment on above: Performed By: #### A 1C #### [address] [address] LABORATORYOrdered By: SYSTEM SYSTEM on 08-21-2024 Glucose [Mass/Vol] 194 mg/dL Invalid Interpretation Code Auto Chem SS Comment on above: Interpretive Data: E stimated average glucose (eAG) is a calculated value from Hemoglobin A1C and is sales representative womens health of the average blood glucose level in the last 2-3 month period. Normal range: less than 114 mg/dL HbA1c (Bld) [Mass fraction] 8.4 % High 4.0 - 6.0 % Auto Chem SS .Auto Diffon 08-20-2024 Basophil, Absolute 0.1 10 3/mcL Normal 0.0-0.3 [facility] Comment on above: Performed By: #### B MP, ADIFF, CBC, GFR, ANEU #### [address] [address] Basophils/100 WBC (Bld) 1.1 % Normal 0.0-2.5 [facility] Comment on above: Performed By: #### B MP, ADIFF, CBC, GFR, ANEU #### [address] [address] Eosinophil, Absolute 0.3 10 3/mcL Normal 0.0-0.7 [facility] Comment on above: Performed By: #### B MP, ADIFF, CBC, GFR, ANEU #### [address] [address] Eosinophils/100 WBC (Bld) 3.6 % Normal 0.0-6.0 [facility] Comment on above: Performed By: #### B MP, ADIFF, CBC, GFR, ANEU #### [address] [address] Lymphocyte, Absolute 1.7 10 3/mcL Normal 0.9-4.3 [facility] Comment on above: Performed By: #### B MP, ADIFF, CBC, GFR, ANEU #### [address] [address] Lymphocytes/100 WBC (Bld) 20.8 % Normal 20.0-40.0 [facility] Comment on above: Performed By: #### B MP, ADIFF, CBC, GFR, ANEU #### [address] [address] Monocyte, Absolute 0.9 10 3/mcL Normal 0.1-1.4 [facility] Comment on above: Performed By: #### B MP, ADIFF, CBC, GFR, ANEU #### [address] [address] Monocytes/100 WBC (Bld) 11.4 % Normal 2.0-13.0 [facility] Comment on above: Performed By: #### B MP, ADIFF, CBC, GFR, ANEU #### [address] [address] Neutrophils/100 WBC (Bld) 63.1 % Normal 50.0-75.0 [facility] Comment on above: Performed By: #### B MP, ADIFF, CBC, GFR, ANEU #### [address] [address] .GFRon 08-20-2024 Estimated Glomerular Filtration Rate 55 ml/min/1.73sqm Normal [facility] [facility] Comment on above: Result Comment: Stages [...] A DIFF, CBC, ANEU, GFR, BMP #### [address] [address] .NEUABSon 08-20-2024 Neutrophil, Absolute 5.1 10 3/mcL Normal 2.3-8.1 [facility] Comment on above: Performed By: #### B MP, ADIFF, CBC, GFR, ANEU #### [address] [address] BMPon 08-20-2024 BUN/Creatinine Ratio 29.8 ratio High 10.0-22.0 [facility] Comment on above: Performed By: #### B MP, ADIFF, CBC, GFR, ANEU #### [address] [address] Calcium [Mass/Vol] 9.8 mg/dL Normal 8.7-10.4 [facility] Comment on above: Performed By: #### B MP, ADIFF, CBC, GFR, ANEU #### [address] [address] Chloride [Moles/Vol] 95 mmol/L Low 98-110 [facility] Comment on above: Performed By: #### B MP, ADIFF, CBC, GFR, ANEU #### [address] [address] CO2 [Moles/Vol] 34 mmol/L High 22-32 [facility] Comment on above: Performed By: #### B MP, ADIFF, CBC, GFR, ANEU #### [address] [address] Creatinine [Mass/Vol] 1.04 mg/dL Normal 0.50-1.20 [facility] Comment on above: Result Comment: Test ing performed on DGIT analyzer using enzymatic creatinine methodology. Performed By: #### B MP, ADIFF, CBC, GFR, ANEU #### [address] [address] Electrolyte Balance 5.0 mEq/L Normal 4.0-15.0 [facility] Comment on above: Performed By: #### B MP, ADIFF, CBC, GFR, ANEU #### [address] [address] Glucose [Mass/Vol] 244 mg/dL High 82-115 [facility] Comment on above: Performed By: #### B MP, ADIFF, CBC, GFR, ANEU #### [address] [address] Potassium [Moles/Vol] 4.8 mmol/L Normal 3.5-5.0 [facility] Comment on above: Result Comment: Spec imen slightly hemolyzed. Performed By: #### B MP, ADIFF, CBC, GFR, ANEU #### [address] [address] Sodium [Moles/Vol] 134 mmol/L Low 136-145 [facility] Comment on above: Performed By: #### B MP, ADIFF, CBC, GFR, ANEU #### [place] [address] Urea nitrogen [Mass/Vol] 31.0 mg/dL High 8.0-22.0 [facility] Comment on above: Performed By: #### B MP, ADIFF, CBC, GFR, ANEU #### [place] [address] CBCon 08-20-2024 Erythrocyte distribution width (RBC) [Ratio] 14.0 % Normal 11.5-15.5 [facility] Comment on above: Performed By: #### B MP, ADIFF, CBC, GFR, ANEU #### [place] [address] Hematocrit (Bld) [Volume fraction] 41.9 % Normal 34.0-46.0 [facility] Comment on above: Performed By: #### B MP, ADIFF, CBC, GFR, ANEU #### [place] [address] Hgb 13.6 G/dL Normal 12.0-16.0 [facility] Comment on above: Performed By: #### B MP, ADIFF, CBC, GFR, ANEU #### [place] [address] MCH (RBC) [Entitic mass] 29.7 pg Normal 27.0-33.0 [facility] Comment on above: Performed By: #### B MP, ADIFF, CBC, GFR, ANEU #### [place] [address] MCHC 32.4 G/dL Normal 32.0-36.0 [facility] Comment on above: Performed By: #### B MP, ADIFF, CBC, GFR, ANEU #### [place] [address] MCV (RBC) [Entitic vol] 91.5 fL Normal 80.0-99.0 [facility] Comment on above: Performed By: #### B MP, ADIFF, CBC, GFR, ANEU #### [place] [address] Platelet 301 10 3/mcL Normal 150-450 [facility] [place] [facility] Comment on above: Performed By: #### B MP, ADIFF, CBC, GFR, ANEU #### [place] [address] Platelet mean volume (Bld) [Entitic vol] 11.0 fL High 6.6-10.5 [facility] [facility] Comment on above: Performed By: #### B MP, ADIFF, CBC, GFR, ANEU #### [place] [address] RBC 4.58 10 6/mcL Normal 4.10-5.30 [facility] [place] [facility] Comment on above: Performed By: #### B MP, ADIFF, CBC, GFR, ANEU #### [place] [address] WBC 8.1 10 3/mcL Normal 4.5-10.8 [facility] Comment on above: Performed By: #### B MP, ADIFF, CBC, GFR, ANEU #### [place] [address] LABORATORYOrdered By: SYSTEM SYSTEM on 08-20-2024 Basophils [...] above: Interpretive Data: T esting performed on DGIT analyzer using enzymatic creatinine methodology. Electrolyte Balance [...] 08/18/2024 3:14:15 PM Ordering Provider: NANDO Anderson [facility] .Auto Diffon 08-16-2024 Basophil, Absolute 0.1 10 3/mcL Normal 0.0-0.3 [facility] Comment on above: Performed By: #### A DIFF, CBC, ANEU, GFR, BMP #### [address] [address] Basophils/100 WBC (Bld) 0.7 % Normal 0.0-2.5 [facility] Comment on above: Performed By: #### A DIFF, CBC, ANEU, GFR, BMP #### [address] [address] Eosinophil, Absolute 0.3 10 3/mcL Normal 0.0-0.7 [facility] Comment on above: Performed By: #### A DIFF, CBC, ANEU, GFR, BMP #### [address] [address] Eosinophils/100 WBC (Bld) 2.1 % Normal 0.0-6.0 [facility] Comment on above: Performed By: #### A DIFF, CBC, ANEU, GFR, BMP #### [address] [address] Lymphocyte, Absolute 1.9 10 3/mcL Normal 0.9-4.3 [facility] Comment on above: Performed By: #### A DIFF, CBC, ANEU, GFR, BMP #### [address] [address] Lymphocytes/100 WBC (Bld) 14.8 % Low 20.0-40.0 [facility] Comment on above: Performed By: #### A DIFF, CBC, ANEU, GFR, BMP #### [address] [address] Monocyte, Absolute 1.2 10 3/mcL Normal 0.1-1.4 [facility] Comment on above: Performed By: #### A DIFF, CBC, ANEU, GFR, BMP #### [address] [address] Monocytes/100 WBC (Bld) 9.8 % Normal 2.0-13.0 [facility] Comment on above: Performed By: #### A DIFF, CBC, ANEU, GFR, BMP #### [address] [address] Neutrophils/100 WBC (Bld) 72.6 % Normal 50.0-75.0 [facility] Comment on above: Performed By: #### A DIFF, CBC, ANEU, GFR, BMP #### [address] [address] .GFRon 08-16-2024 Estimated Glomerular Filtration Rate 58 ml/min/1.73sqm Normal [facility] Comment on above: Result Comment: Stages [...] A DIFF, CBC, ANEU, GFR, BMP #### [address] [address] .NEUABSon 08-16-2024 Neutrophil, Absolute 9.2 10 3/mcL High 2.3-8.1 [facility] Comment on above: Performed By: #### A DIFF, CBC, ANEU, GFR, BMP #### [address] [address] BMPon 08-16-2024 BUN/Creatinine Ratio 34.3 ratio High 10.0-22.0 [facility] Comment on above: Performed By: #### A DIFF, CBC, ANEU, GFR, BMP #### [address] [address] Calcium [Mass/Vol] 9.0 mg/dL Normal 8.7-10.4 [facility] Comment on above: Performed By: #### A DIFF, CBC, ANEU, GFR, BMP #### [address] [address] Chloride [Moles/Vol] 100 mmol/L Normal 98-110 [facility] Comment on above: Performed By: #### A DIFF, CBC, ANEU, GFR, BMP #### [address] [address] CO2 [Moles/Vol] 30 mmol/L Normal 22-32 [facility] Comment on above: Performed By: #### A DIFF, CBC, ANEU, GFR, BMP #### [address] [address] Creatinine [Mass/Vol] 0.99 mg/dL Normal 0.50-1.20 [facility] Comment on above: Result Comment: Test ing performed on DGIT analyzer using enzymatic creatinine methodology. Performed By: #### A DIFF, CBC, ANEU, GFR, BMP #### [address] [address] Electrolyte Balance 5.0 mEq/L Normal 4.0-15.0 [facility] Comment on above: Performed By: #### A DIFF, CBC, ANEU, GFR, BMP #### [address] [address] Glucose [Mass/Vol] 259 mg/dL High 82-115 [facility] Comment on above: Performed By: #### A DIFF, CBC, ANEU, GFR, BMP #### [address] [address] Potassium [Moles/Vol] 5.0 mmol/L Normal 3.5-5.0 [facility] Comment on above: Performed By: #### A DIFF, CBC, ANEU, GFR, BMP #### [address] [address] Sodium [Moles/Vol] 135 mmol/L Low 136-145 [facility] Comment on above: Performed By: #### A DIFF, CBC, ANEU, GFR, BMP #### [address] [address] Urea nitrogen [Mass/Vol] 34.0 mg/dL High 8.0-22.0 [facility] Comment on above: Performed By: #### A DIFF, CBC, ANEU, GFR, BMP #### [address] [address] CBCon 08-16-2024 Erythrocyte distribution width (RBC) [Ratio] 13.7 % Normal 11.5-15.5 [facility] Comment on above: Performed By: #### A DIFF, CBC, ANEU, GFR, BMP #### [place] [id number] Hematocrit (Bld) [Volume fraction] 43.3 % Normal 34.0-46.0 [facility] Comment on above: Performed By: #### A DIFF, CBC, ANEU, GFR, BMP #### [place] [id number] Hgb 13.9 G/dL Normal 12.0-16.0 [facility] [facility] Comment on above: Performed By: #### A DIFF, CBC, ANEU, GFR, BMP #### [place] [id number] MCH (RBC) [Entitic mass] 30.0 pg Normal 27.0-33.0 [facility] [facility] Comment on above: Performed By: #### A DIFF, CBC, ANEU, GFR, BMP #### [place] [id number] MCHC 32.1 G/dL Normal 32.0-36.0 [facility] Comment on above: Performed By: #### A DIFF, CBC, ANEU, GFR, BMP #### [place] [id number] MCV (RBC) [Entitic vol] 93.6 fL Normal 80.0-99.0 [facility] Comment on above: Performed By: #### A DIFF, CBC, ANEU, GFR, BMP #### [place] [id number] Platelet 230 10 3/mcL Normal 150-450 [facility] Comment on above: Performed By: #### A DIFF, CBC, ANEU, GFR, BMP #### [place] [id number] Platelet mean volume (Bld) [Entitic vol] 10.7 fL High 6.6-10.5 [facility] Comment on above: Performed By: #### A DIFF, CBC, ANEU, GFR, BMP #### [place] [id number] RBC 4.63 10 6/mcL Normal 4.10-5.30 [facility] Comment on above: Performed By: #### A DIFF, CBC, ANEU, GFR, BMP #### [place] [id number] [place] [address] WBC 12.7 10 3/mcL High 4.5-10.8 [facility] Comment on above: Performed By: #### A DIFF, CBC, ANEU, GFR, BMP #### [facility] [address] [place] [address] LABORATORYOrdered By: Marily Panda on 08-16-2024 Blood Glucose Interventions Administered agent to decrease blood sugar (08/16/24 12:23 PM) [employer] Work Phone: Blood Glucose Interventions Retest (08/16/24 10:15 AM) [employer] Work Phone: Bacteria identified Cx Nom ( Bld)on 08-15-2024 Bacteria identified Cx Nom (Unsp spec) NO GROWTH DAY 5 OF 5 [facility] CARDIAC RHYTHMon 08-15-2024 [facility] CBC,PLATELETSon 08-15-2024 Erythrocyte distribution width (RBC) [Ratio] 13.4 % 10.8 - 14.9 % [facility] Hematocrit (Bld) [Volume fraction] 43.8 % 34.9 - 44.3 % [facility] Hemoglobin (Bld) [Mass/Vol] 13.5 g/dL 11.4 - 15.2 g/dL [facility] Interpretation and review of laboratory results Abnormal [facility] MCH (RBC) [Entitic mass] 28.9 pg 25.9 - 33.9 pg [facility] MCHC (RBC) [Mass/Vol] 30.8 g/dL Low 31.4 - 35.9 g/dL [facility] MCV (RBC) [Entitic vol] 93.8 fL 79.6 - 97.7 fL [facility] Platelet mean volume (Bld) [Entitic vol] 12 fL 8.5 - 12.2 fL [facility] Platelets (Bld) [#/Vol] 252 10*3/uL 150 - 393 K/uL [facility] RBC (Bld) [#/Vol] 4.67 10*6/uL [facility] WBC (Bld) [#/Vol] 11.94 10*3/uL High 3.99 - 11.19 K/uL [facility] Hematocrit (Bld) [Volume fraction] 43.8 % Normal 34.9-44.3 [facility] Comment on above: Performed By: #### X M #### [facility] (DEFAULT) [address] [address] Hemoglobin (Bld) [Mass/Vol] 13.5 g/dL Normal 11.4-15.2 [facility] Comment on above: Performed By: #### X M #### [facility] (DEFAULT) [address] [address] MCV (RBC) [Entitic vol] 93.8 fL Normal 79.6-97.7 [facility] Comment on above: Performed By: #### X M #### [facility] (DEFAULT) [address] [address] Mean Cell Hgb 28.9 pg Normal 25.9-33.9 [facility] Comment on above: Performed By: #### X M #### [facility] (DEFAULT) [address] [address] Mean Cell Hgb Conc 30.8 g/dL Low 31.4-35.9 [facility] Comment on above: Performed By: #### X M #### [facility] (DEFAULT) [address] [address] Platelet mean volume (Bld) [Entitic vol] 12.0 fL Normal 8.5-12.2 [facility] Comment on above: Performed By: #### X M #### [facility] (DEFAULT) [address] [address] Platelets (Bld) [#/Vol] 252 10*3/uL Normal 150-393 [facility] Comment on above: Performed By: #### X M #### [facility] (DEFAULT) [address] [place] [address] RBC (Bld) [#/Vol] 4.67 10*6/uL Normal 3.91-5.04 [facility] Comment on above: Performed By: #### X M #### [facility] (DEFAULT) [address] [place] [address] RBC Distribution 13.4 % Normal 10.8-14.9 [facility] Comment on above: Performed By: #### X M #### [facility] (DEFAULT) [address] [place] [address] WBC (Bld) [#/Vol] 11.94 10*3/uL High 3.99-11.19 [facility] Comment on above: Performed By: #### X M #### [facility] (DEFAULT) [address] [place] [address] CHEM 7 (LYTES,BUN,CREA,GLUC) on 08-15-2024 Anion gap [Moles/Vol] 16 mmol/L 7 - 17 mmol/L [facility] Chloride [Moles/Vol] 99 mmol/L 98 - 10 8 mmol/L [facility] CO2 [Moles/Vol] 25 mmol/L 21 - 31 mmol/L [facility] Creatinine [Mass/Vol] 1.27 mg/dL High 0.50 - 1.20 mg/dL [facility] eGFR, CKD-EPI, Female 43 Low - PINF [facility] Glucose [Mass/Vol] 214 mg/dL High 70 - 179 mg/dL [facility] Interpretation and review of laboratory results Abnormal [facility] Osmolality Calc [Osmolality] 306 High [facility] Potassium [Moles/Vol] 4.8 mmol/L 3.5 - 5.0 mmol/L [facility] Sodium [Moles/Vol] 135 mmol/L 135 - 145 mmol/L [facility] Urea nitrogen [Mass/Vol] 51 mg/dL High 7 - 25 mg/dL [facility] Urea nitrogen/Creatinine [Mass ratio] 40 mg/mg [facility] Anion gap [Moles/Vol] 16 mmol/L Normal 7-17 [facility] Comment on above: Performed By: #### H [facility] #### [facility] (DEFAULT) [address] [place] [address] Chloride [Moles/Vol] 99 mmol/L Normal 98-108 [facility] Comment on above: Performed By: #### H [facility] #### [facility] (DEFAULT) [address] [place] [address] CO2 [Moles/Vol] 25 mmol/L Normal 21-31 [facility] Comment on above: Performed By: #### H [facility] #### [facility] (DEFAULT) [address] [place] [address] Creatinine [Mass/Vol] 1.27 mg/dL High 0.50-1.20 [facility] Comment on above: Performed By: #### H [facility] #### [facility] (DEFAULT) [address] [place] [address] GFR/1.73 sq M.predicted among non-blacks MDRD (S/P/Bld) [Vol rate/Area] 43 mL/min/{1.73_m2} Low >=60 [facility] Comment on above: Result Comment: Repo rted eGFR is based on the CKD-EPI 2020 equation using creatinine, age, and sex. Performed By: #### H [facility] #### [facility] (DEFAULT) [address] [place] [address] Glucose [Mass/Vol] 214 mg/dL High Nonfastin -179 mg/dL; Fastin-99 [facility] Comment on above: Performed By: #### H EMOGC #### [facility] (DEFAULT) [address] [place] [address] Osmolality [Osmolality] 306 mosm/kg High 278-305 [facility] Comment on above: Performed By: #### H EMOGC #### [facility] (DEFAULT) [address] [place] [address] Potassium [Moles/Vol] 4.8 mmol/L Normal 3.5-5.0 [facility] Comment on above: Performed By: #### H EMOGC #### [facility] (DEFAULT) [address] [place] [address] Sodium [Moles/Vol] 135 mmol/L Normal 135-145 [facility] Comment on above: Performed By: #### H EMOGC #### [facility] (DEFAULT) [address] [place] [address] Urea nitrogen [Mass/Vol] 51 mg/dL High 7-25 [facility] Comment on above: Performed By: #### H EMOGC #### [facility] (DEFAULT) [address] [place] [address] Urea nitrogen/Creatinine [Mass ratio] 40 mg/mg Normal [facility] Comment on above: Performed By: #### H EMOGC #### [facility] (DEFAULT) [address] [place] [address] GLUCOSE POCon 08-15-2024 Glucose [Mass/Vol] 190 mg/dL High 70 - 179 mg/dL [facility] Interpretation and review of laboratory results Abnormal [facility] POC Sample Type [facility] Glucose [Mass/Vol] 146 mg/dL 70 - 179 mg/dL [facility] POC Sample Type [facility] Glucose [Mass/Vol] 215 mg/dL High 70 - 179 mg/dL [facility] Interpretation and review of laboratory results Abnormal [facility] POC Sample Type CAPBL [facility] MAGNESIUMon 08-15-2024 Interpretation and review of laboratory results Normal [facility] Magnesium [Mass/Vol] 1.6 mg/dL 1.6 - 2 .6 mg/dL [facility] Magnesium [Mass/Vol] 1.6 mg/dL Normal 1.6-2.6 [facility] Comment on above: Performed By: #### H [facility] #### [facility] (DEFAULT) [address] [place] [address] No Panel Informationon 08-15 [facility] CBC,PLATELETSon 08-14-2024 Erythrocyte distribution width (RBC) [Ratio] 13.4 % 10.8 - 14.9 % [facility] Hematocrit (Bld) [Volume fraction] 47.9 % High 34.9 - 44.3 % [facility] Hemoglobin (Bld) [Mass/Vol] 14.3 g/dL 11.4 - 15.2 g/dL [facility] Interpretation and review of laboratory results Abnormal [facility] MCH (RBC) [Entitic mass] 29.3 pg 25.9 - 33.9 pg [facility] MCHC (RBC) [Mass/Vol] 29.9 g/dL Low 31.4 - 35.9 g/dL [facility] MCV (RBC) [Entitic vol] 98.2 fL High 79.6 - 97.7 fL [facility] Platelet mean volume (Bld) [Entitic vol] 11.3 fL 8.5 - 12.2 fL [facility] Platelets (Bld) [#/Vol] 229 10*3/uL 150 - 393 K/uL [facility] RBC (Bld) [#/Vol] 4.88 10*6/uL [facility] WBC (Bld) [#/Vol] 12.14 10*3/uL High 3.99 - 11.19 K/uL [facility] Hematocrit (Bld) [Volume fraction] 47.9 % High 34.9-44.3 [facility] Comment on above: Performed By: #### X M #### [facility] (DEFAULT) [address] [address] Hemoglobin (Bld) [Mass/Vol] 14.3 g/dL Normal 11.4-15.2 [facility] Comment on above: Performed By: #### X M #### [facility] (DEFAULT) [address] [place] [address] MCV (RBC) [Entitic vol] 98.2 fL High 79.6-97.7 [facility] Comment on above: Performed By: #### X M #### [facility] (DEFAULT) [address] [address] Mean Cell Hgb 29.3 pg Normal 25.9-33.9 [facility] Comment on above: Performed By: #### X M #### [facility] (DEFAULT) [address] [address] Mean Cell Hgb Conc 29.9 g/dL Low 31.4-35.9 [facility] Comment on above: Performed By: #### X M #### [facility] (DEFAULT) [address] [place] [address] Platelet mean volume (Bld) [Entitic vol] 11.3 fL Normal 8.5-12.2 [facility] Comment on above: Performed By: #### X M #### [facility] (DEFAULT) [address] [place] [address] Platelets (Bld) [#/Vol] 229 10*3/uL Normal 150-393 [facility] Comment on above: Performed By: #### X M #### [facility] (DEFAULT) [address] [place] [address] RBC (Bld) [#/Vol] 4.88 10*6/uL Normal 3.91-5.04 [facility] Comment on above: Performed By: #### X M #### [facility] (DEFAULT) [address] [place] [address] RBC Distribution 13.4 % Normal 10.8-14.9 [facility] Comment on above: Performed By: #### X M #### [facility] (DEFAULT) [address] [place] [address] WBC (Bld) [#/Vol] 12.14 10*3/uL High 3.99-11.19 [facility] Comment on above: Performed By: #### X M #### [facility] (DEFAULT) [address] [place] [address] CHEM 7 (LYTES,BUN,CREA,GLUC) on 08-14-2024 Anion gap [Moles/Vol] 16 mmol/L 7 - 17 mmol/L [facility] Chloride [Moles/Vol] 101 mmol/L 98 - 10 8 mmol/L [facility] CO2 [Moles/Vol] 23 mmol/L 21 - 31 mmol/L [facility] Creatinine [Mass/Vol] 1.15 mg/dL 0.50 - 1.20 mg/dL [facility] eGFR, CKD-EPI, Female 48 Low - PINF [facility] Glucose [Mass/Vol] 208 mg/dL High 70 - 179 mg/dL [facility] Interpretation and review of laboratory results Abnormal [facility] Osmolality Calc [Osmolality] 304 [facility] Potassium [Moles/Vol] 4.7 mmol/L 3.5 - 5.0 mmol/L [facility] Sodium [Moles/Vol] 135 mmol/L 135 - 145 mmol/L [facility] Urea nitrogen [Mass/Vol] 47 mg/dL High 7 - 25 mg/dL [facility] Urea nitrogen/Creatinine [Mass ratio] 41 mg/mg [facility] Anion gap [Moles/Vol] 16 mmol/L Normal 7-17 [facility] Comment on above: Performed By: #### B LDCULT #### [facility] (DEFAULT) [address] [place] [address] Chloride [Moles/Vol] 101 mmol/L Normal 98-108 [facility] Comment on above: Performed By: #### B LDCULT #### [facility] (DEFAULT) [address] [place] [address] CO2 [Moles/Vol] 23 mmol/L Normal 21-31 [facility] Comment on above: Performed By: #### B LDCULT #### [facility] (DEFAULT) [address] [place] [address] Creatinine [Mass/Vol] 1.15 mg/dL Normal 0.50-1.20 [facility] Comment on above: Performed By: #### B LDCULT #### [place] [facility] (DEFAULT) [address] [place] [address] GFR/1.73 sq M.predicted among non-blacks MDRD (S/P/Bld) [Vol rate/Area] 48 mL/min/{1.73_m2} Low >=60 [facility] Comment on above: Result Comment: Repo rted eGFR is based on the CKD-EPI 2020 equation using creatinine, age, and sex. Performed By: #### B LDCULT #### [place] [facility] (DEFAULT) [address] [place] [address] Glucose [Mass/Vol] 208 mg/dL High Nonfastin -179 mg/dL; Fastin-99 [facility] Comment on above: Performed By: #### B LDCULT #### [facility] (DEFAULT) [address] [place] [address] Osmolality [Osmolality] 304 mosm/kg Normal 278-305 [facility] Comment on above: Performed By: #### B LDCULT #### [facility] (DEFAULT) [address] [place] [address] Potassium [Moles/Vol] 4.7 mmol/L Normal 3.5-5.0 [facility] Comment on above: Performed By: #### B LDCULT #### [facility] (DEFAULT) [address] [place] [address] Sodium [Moles/Vol] 135 mmol/L Normal 135-145 [facility] Comment on above: Performed By: #### B LDCULT #### [facility] (DEFAULT) [address] [place] [address] Urea nitrogen [Mass/Vol] 47 mg/dL High 7-25 [facility] Comment on above: Performed By: #### B LDCULT #### [facility] (DEFAULT) [address] [place] [address] Urea nitrogen/Creatinine [Mass ratio] 41 mg/mg Normal [facility] Comment on above: Performed By: #### B LDCULT #### [facility] (DEFAULT) [address] [place] [address] GLUCOSE POCon 08-14-2024 Glucose [Mass/Vol] 204 mg/dL High 70 - 179 mg/dL [facility] Interpretation and review of laboratory results Abnormal [facility] POC Sample Type CAPBL [facility] Glucose [Mass/Vol] 264 mg/dL High 70 - 179 mg/dL [facility] Interpretation and review of laboratory results Abnormal [facility] POC Sample Type CAPBL [facility] Glucose [Mass/Vol] 189 mg/dL High 70 - 179 mg/dL [facility] Interpretation and review of laboratory results Abnormal [facility] POC Sample Type CAPBL [facility] MAGNESIUMon 08-14-2024 Interpretation and review of laboratory results Normal [facility] Magnesium [Mass/Vol] 1.6 mg/dL 1.6 - 2 .6 mg/dL [facility] Magnesium [Mass/Vol] 1.6 mg/dL Normal 1.6-2.6 [facility] Comment on above: Performed By: #### B LDCULT #### [facility] (DEFAULT) [address] [address] No Panel Informationon 08-14 [facility] CBC,PLATELETSon 08-13-2024 Erythrocyte distribution width (RBC) [Ratio] 13.4 % 10.8 - 14.9 % [facility] Hematocrit (Bld) [Volume fraction] 45.7 % High 34.9 - 44.3 % [facility] Hemoglobin (Bld) [Mass/Vol] 14.3 g/dL 11.4 - 15.2 g/dL [facility] Interpretation and review of laboratory results Abnormal [facility] MCH (RBC) [Entitic mass] 29.5 pg 25.9 - 33.9 pg [facility] MCHC (RBC) [Mass/Vol] 31.3 g/dL Low 31.4 - 35.9 g/dL [facility] MCV (RBC) [Entitic vol] 94.2 fL 79.6 - 97.7 fL [facility] Platelet mean volume (Bld) [Entitic vol] 11.7 fL 8.5 - 12.2 fL [facility] Platelets (Bld) [#/Vol] 245 10*3/uL 150 - 393 K/uL [facility] RBC (Bld) [#/Vol] 4.85 10*6/uL [facility] WBC (Bld) [#/Vol] 12.02 10*3/uL High 3.99 - 11.19 K/uL [facility] Hematocrit (Bld) [Volume fraction] 45.7 % High 34.9-44.3 [facility] Comment on above: Performed By: #### H [facility] #### [facility] (DEFAULT) [address] [address] Hemoglobin (Bld) [Mass/Vol] 14.3 g/dL Normal 11.4-15.2 [facility] Comment on above: Performed By: #### H EMOGC #### [place] [facility] (DEFAULT) [address] [place] [address] MCV (RBC) [Entitic vol] 94.2 fL Normal 79.6-97.7 [facility] Comment on above: Performed By: #### H EMOGC #### [place] [facility] (DEFAULT) [address] [address] Mean Cell Hgb 29.5 pg Normal 25.9-33.9 [facility] Comment on above: Performed By: #### H EMOGC #### [place] [facility] (DEFAULT) [address] [address] Mean Cell Hgb Conc 31.3 g/dL Low 31.4-35.9 [facility] Comment on above: Performed By: #### H EMOGC #### [facility] (DEFAULT) [address] [address] Platelet mean volume (Bld) [Entitic vol] 11.7 fL Normal 8.5-12.2 [facility] Comment on above: Performed By: #### H EMOGC #### [facility] (DEFAULT) [address] [address] Platelets (Bld) [#/Vol] 245 10*3/uL Normal 150-393 [facility] Comment on above: Performed By: #### H EMOGC #### [facility] (DEFAULT) [address] [address] RBC (Bld) [#/Vol] 4.85 10*6/uL Normal 3.91-5.04 [facility] Comment on above: Performed By: #### H EMOGC #### [employer] (DEFAULT) [address] [address] RBC Distribution 13.4 % Normal 10.8-14.9 [facility] Comment on above: Performed By: #### H EMOGC #### [place] [facility] (DEFAULT) [address] [place] [address] WBC (Bld) [#/Vol] 12.02 10*3/uL High 3.99-11.19 [facility] Comment on above: Performed By: #### H [facility] #### [facility] (DEFAULT) [address] [place] [address] CHEM 7 (LYTES,BUN,CREA,GLUC) on 08-13-2024 Anion gap [Moles/Vol] 15 mmol/L 7 - 17 mmol/L [facility] Chloride [Moles/Vol] 104 mmol/L 98 - 10 8 mmol/L [facility] CO2 [Moles/Vol] 23 mmol/L 21 - 31 mmol/L [facility] Creatinine [Mass/Vol] 1.18 mg/dL 0.50 - 1.20 mg/dL [facility] eGFR, CKD-EPI, Female 47 Low - PINF [facility] Glucose [Mass/Vol] 225 mg/dL High 70 - 179 mg/dL [facility] Interpretation and review of laboratory results Abnormal [facility] Osmolality Calc [Osmolality] 311 High [facility] Potassium [Moles/Vol] 4.6 mmol/L 3.5 - 5.0 mmol/L [facility] Sodium [Moles/Vol] 137 mmol/L 135 - 145 mmol/L [facility] Urea nitrogen [Mass/Vol] 55 mg/dL High 7 - 25 mg/dL [facility] Urea nitrogen/Creatinine [Mass ratio] 47 mg/mg [facility] Anion gap [Moles/Vol] 15 mmol/L Normal 7-17 [facility] Comment on above: Performed By: #### H [facility] #### [facility] (DEFAULT) [address] [place] [address] Chloride [Moles/Vol] 104 mmol/L Normal 98-108 [facility] Comment on above: Performed By: #### H [facility] #### [facility] (DEFAULT) [address] [place] [address] CO2 [Moles/Vol] 23 mmol/L Normal 21-31 [facility] Comment on above: Performed By: #### H EMOGC #### [facility] (DEFAULT) [address] [place] [address] Creatinine [Mass/Vol] 1.18 mg/dL Normal 0.50-1.20 [facility] Comment on above: Performed By: #### H EMOGC #### [facility] (DEFAULT) [address] [place] [address] GFR/1.73 sq M.predicted among non-blacks MDRD (S/P/Bld) [Vol rate/Area] 47 mL/min/{1.73_m2} Low >=60 [facility] Comment on above: Result Comment: Repo rted eGFR is based on the CKD-EPI 2020 equation using creatinine, age, and sex. Performed By: #### H EMOGC #### [facility] (DEFAULT) [address] [place] [address] Glucose [Mass/Vol] 225 mg/dL High Nonfastin -179 mg/dL; Fastin-99 [facility] Comment on above: Performed By: #### H EMO #### [facility] (DEFAULT) [address] [place] [address] Osmolality [Osmolality] 311 mosm/kg High 278-305 [facility] Comment on above: Performed By: #### H EMOGC #### [facility] (DEFAULT) [address] [place] [address] Potassium [Moles/Vol] 4.6 mmol/L Normal 3.5-5.0 [facility] Comment on above: Performed By: #### H EMOGC #### [facility] (DEFAULT) [address] [place] [address] Sodium [Moles/Vol] 137 mmol/L Normal 135-145 [facility] Comment on above: Performed By: #### H EMOGC #### [facility] (DEFAULT) [address] [place] [address] Urea nitrogen [Mass/Vol] 55 mg/dL High 7-25 [facility] Comment on above: Performed By: #### H EMO #### [facility] (DEFAULT) [address] [place] [address] Urea nitrogen/Creatinine [Mass ratio] 47 mg/mg Normal [facility] Comment on above: Performed By: #### H [facility] #### [facility] (DEFAULT) [address] [place] [address] GLUCOSE POCon 08-13-2024 Glucose [Mass/Vol] 195 mg/dL High 70 - 179 mg/dL [facility] Interpretation and review of laboratory results Abnormal [facility]OC [facility] Glucose [Mass/Vol] 198 mg/dL High 70 - 179 mg/dL [facility] Interpretation and review of laboratory results Abnormal [facility] POC Sample Type CAPBL [facility] Glucose [Mass/Vol] 158 mg/dL 70 - 179 mg/dL [facility] POC [facility] Glucose [Mass/Vol] 211 mg/dL High 70 - 179 mg/dL [facility] Interpretation and review of laboratory results Abnormal [facility] POC Sample Type [facility] Glucose [Mass/Vol] 240 mg/dL High 70 - 179 mg/dL [facility] Interpretation and review of laboratory results Abnormal [facility] POC Sample Type CAPBL [facility] MAGNESIUMon 08-13-2024 Interpretation and review of laboratory results Normal [facility] Magnesium [Mass/Vol] 1.8 mg/dL 1.6 - 2 .6 mg/dL [facility] Magnesium [Mass/Vol] 1.8 mg/dL Normal 1.6-2.6 [facility] Comment on above: Performed By: #### H [facility] #### [facility] (DEFAULT) [address] [place] [address] No Panel Informationon 08-13 [facility] CBC,PLATELETSon 08-12-2024 Erythrocyte distribution width (RBC) [Ratio] 13.6 % 10.8 - 14.9 % [facility] Hematocrit (Bld) [Volume fraction] 45.1 % High 34.9 - 44.3 % [facility] Hemoglobin (Bld) [Mass/Vol] 14.3 g/dL 11.4 - 15.2 g/dL [facility] Interpretation and review of laboratory results Abnormal [facility] MCH (RBC) [Entitic mass] 29.7 pg 25.9 - 33.9 pg [facility] MCHC (RBC) [Mass/Vol] 31.7 g/dL 31.4 - 35.9 g/dL [facility] MCV (RBC) [Entitic vol] 93.6 fL 79.6 - 97.7 fL [facility] Platelet mean volume (Bld) [Entitic vol] 11.4 fL 8.5 - 12.2 fL [facility] Platelets (Bld) [#/Vol] 241 10*3/uL 150 - 393 K/uL [facility] RBC (Bld) [#/Vol] 4.82 10*6/uL [facility] WBC (Bld) [#/Vol] 14.32 10*3/uL High 3.99 - 11.19 K/uL [facility] Hematocrit (Bld) [Volume fraction] 45.1 % High 34.9-44.3 [facility] Comment on above: Performed By: #### H [facility] #### [facility] (DEFAULT) [address] [place] [address] Hemoglobin (Bld) [Mass/Vol] 14.3 g/dL Normal 11.4-15.2 [facility] Comment on above: Performed By: #### H EMOGC #### [facility] (DEFAULT) [address] [place] [address] MCV (RBC) [Entitic vol] 93.6 fL Normal 79.6-97.7 [facility] Comment on above: Performed By: #### H EMOGC #### [facility] (DEFAULT) [address] [place] [address] Mean Cell Hgb 29.7 pg Normal 25.9-33.9 [facility] Comment on above: Performed By: #### H EMOGC #### [facility] (DEFAULT) [address] [place] [address] Mean Cell Hgb Conc 31.7 g/dL Normal 31.4-35.9 [facility] Comment on above: Performed By: #### H EMOGC #### [facility] (DEFAULT) [address] [place] [address] Platelet mean volume (Bld) [Entitic vol] 11.4 fL Normal 8.5-12.2 [facility] Comment on above: Performed By: #### H EMOGC #### [facility] (DEFAULT) [address] [place] [address] Platelets (Bld) [#/Vol] 241 10*3/uL Normal 150-393 [facility] Comment on above: Performed By: #### H EMOGC #### [facility] (DEFAULT) [address] [place] [address] RBC (Bld) [#/Vol] 4.82 10*6/uL Normal 3.91-5.04 [facility] Comment on above: Performed By: #### H EMOGC #### [facility] (DEFAULT) [address] [place] [address] RBC Distribution 13.6 % Normal 10.8-14.9 [facility] Comment on above: Performed By: #### H [facility] #### [facility] (DEFAULT) [address] [place] [address] WBC (Bld) [#/Vol] 14.32 10*3/uL High 3.99-11.19 [facility] Comment on above: Performed By: #### H EMO #### [facility] (DEFAULT) [address] [place] [address] CHEM 7 (LYTES,BUN,CREA,GLUC) on 08-12-2024 Anion gap [Moles/Vol] 15 mmol/L 7 - 17 mmol/L [facility] Chloride [Moles/Vol] 104 mmol/L 98 - 10 8 mmol/L [facility] CO2 [Moles/Vol] 27 mmol/L 21 - 31 mmol/L [facility] Creatinine [Mass/Vol] 1.36 mg/dL High 0.50 - 1.20 mg/dL [facility] eGFR, CKD-EPI, Female 40 Low - PINF [facility] Glucose [Mass/Vol] 126 mg/dL 70 - 179 mg/dL [facility] Interpretation and review of laboratory results Abnormal [facility] Osmolality Calc [Osmolality] 313 High [facility] Potassium [Moles/Vol] 4.5 mmol/L 3.5 - 5.0 mmol/L [facility] Sodium [Moles/Vol] 141 mmol/L 135 - 145 mmol/L [facility] Urea nitrogen [Mass/Vol] 56 mg/dL High 7 - 25 mg/dL [facility] Urea nitrogen/Creatinine [Mass ratio] 41 mg/mg [facility] Anion gap [Moles/Vol] 15 mmol/L Normal 7-17 [facility] Comment on above: Performed By: #### T YPEC #### [facility] (DEFAULT) [address] [place] [address] Chloride [Moles/Vol] 104 mmol/L Normal 98-108 [facility] Comment on above: Performed By: #### T YPEC #### [facility] (DEFAULT) [address] [place] [address] CO2 [Moles/Vol] 27 mmol/L Normal 21-31 [facility] Comment on above: Performed By: #### T YPEC #### [facility] (DEFAULT) [address] [place] [address] Creatinine [Mass/Vol] 1.36 mg/dL High 0.50-1.20 [facility] Comment on above: Performed By: #### T YPEC #### [facility] (DEFAULT) [address] [place] [address] GFR/1.73 sq M.predicted among non-blacks MDRD (S/P/Bld) [Vol rate/Area] 40 mL/min/{1.73_m2} Low >=60 [facility] Comment on above: Result Comment: Repo rted eGFR is based on the CKD-EPI 2020 equation using creatinine, age, and sex. Performed By: #### T YPEC #### [facility] (DEFAULT) [address] [place] [address] Glucose [Mass/Vol] 126 mg/dL Normal Nonfastin -179 mg/dL; Fastin-99 [facility] Comment on above: Performed By: #### T YPEC #### [facility] (DEFAULT) [address] [place] [address] Osmolality [Osmolality] 313 mosm/kg High 278-305 [facility] Comment on above: Performed By: #### T YPEC #### [facility] (DEFAULT) [address] [place] [address] Potassium [Moles/Vol] 4.5 mmol/L Normal 3.5-5.0 [facility] Comment on above: Performed By: #### T YPEC #### [facility] (DEFAULT) [address] [place] [address] Sodium [Moles/Vol] 141 mmol/L Normal 135-145 [facility] Comment on above: Performed By: #### T YPEC #### [facility] (DEFAULT) [address] [place] [address] Urea nitrogen [Mass/Vol] 56 mg/dL High 7-25 [facility] Comment on above: Performed By: #### T YPEC #### [facility] (DEFAULT) [address] [place] [address] Urea nitrogen/Creatinine [Mass ratio] 41 mg/mg Normal [facility] Comment on above: Performed By: #### T YPEC #### [facility] (DEFAULT) [address] [place] [address] GLUCOSE POCon 08-12-2024 Glucose [Mass/Vol] 231 mg/dL High 70 - 179 mg/dL [facility] Interpretation and review of laboratory results Abnormal [facility] POC Sample Type CAPBL [facility] Glucose [Mass/Vol] 208 mg/dL High 70 - 179 mg/dL [facility] Interpretation and review of laboratory results Abnormal [facility] POC Sample Type CAPBL [facility] Glucose [Mass/Vol] 160 mg/dL 70 - 179 mg/dL [facility] POC Sample Type CAPBL [facility] Glucose [Mass/Vol] 107 mg/dL 70 - 179 mg/dL [facility] POC Sample Type CAPBL [facility] MAGNESIUMon 08-12-2024 Interpretation and review of laboratory results Normal [facility] Magnesium [Mass/Vol] 2.2 mg/dL 1.6 - 2 .6 mg/dL [facility] Magnesium [Mass/Vol] 2.2 mg/dL Normal 1.6-2.6 [facility] Comment on above: Performed By: #### T YPEC #### [facility] [address] [place] [address] No Panel Informationon 08-12 [facility] SURG PATH REQUESTOrdered By: Renae Glez on 08-12-2024 Case Report [facility] Clinical History t9tpbXWwIDSmzFQeEBCv NVx wndCiNOXswVMiF4SlrsneJG vaPK3uNN0viYynySFhlMMqK WYnLlOgr4bio609kJNqn7jb ZUUEzrxnsIc8pGldH02ay6K 6ZyymR5tlQAWlENceACMgKK njzZDcNTn4LPPvkDQzcfVyA aImHBExmHZboHA9XRDpVT4q iabdUJorQCiaDSBrktW4BYJ tfHEiD5DzDTRbXP7obospHC H5ISbxEPEcKRD2GwQaFXOvi 5Rknzc5ZzSmsPd7i6jaISMh MGTrqJrxp8ayNKA7UYZfzUE kY7rrgD6fUARqOO6rejccb8 dcCGwaMRnsVRMznNL9xuN7O QRmeOJyF3ZtbQ0qNSBaUHEh bcNnhMapeL8aBhFdJQyeTkI eFh2CCMgVOlXhNWMez1QdWE UhIYNXsFAdxs1gmTB1NBPHe 80nTrAnSYQxlELmcYVZtSC6 c2C7XsDbEx6uiEHwwEFvvGT ijUO2n2O3WUKwg2SxVHUgIn xwYXJ9 [facility] For Immediate Release to Patient's MyChart? Yes Yes [facility] Gross Description l4olkKYfKZVpa9huCQUy bGF uZzEwMzNcZnRuYmpcdWMxIH tccnRmMVxlcGljMTExMDVcY A8nbVtnkHo2lLvhDWIxiuG1 eYEzRLdjm5ebYGB4r7nkkem jAFKbHCdfJt4luLJgySrtXn ZpWNWzDFt6wQ13RVWejI0hv TXtVUimpdNfKJIyB7FzAP7o EGclvGGcZSC7yTunEYPfgbp hLjV9TBcgJPKtyulwSMr4IL ppZLMnfDG7DSXerUDzV2KpO VKnKH6htpu9ESN6PPckJDYw YyH4NGXrqXLoGHNxuOdbHQd ni869LVQ7IwYcBZKltnEurC lxjE0wHmJrGNTFuRYjc2FkZ 2nyPT9ctQAwspNeSKk1BDIh tU4qh75dGDIfy3Sdbne7CLa iRxNbVJUhK88ncGJlpzCyNP dpdGggdGhlIHBhdGllbnQnc yQcEF1sDKYgLLCsF5Qow1Lg v54mefKkZsYoUuCnaLQbSVR jnineBdTdDJqxLgKuOpj2TF IgVGhlIHNwZWNpbWVuIGlzI PUcg0ygjiA4NKErEqtun8Yf pMJqGMAvtyXhvRFfYQ2uPUA fjiPls1PpQK3lFBQzdrQkDa UzZ27lkaQnOM3qCKUkli1kq C7jJRCqJvEmkErww7DlCNYs zb9dLJMzGtV1uUX9iwZtNdV fO47nkG1lD7GtWWGvu1IjZB dzMW1ciX9xGoDpIEScIQCpj ZQpKIVbtjPWXSDkVLNvCJ8p eUt3PHogLoyWEMkvGzPrGTD 7JDOrsa44XFB6FvUtn7U1NW CvLdWsWAAnAN6fbErnOECnR R5rSBGgB9ldwE3gllk6XdTt YZKdTuN7RSVusmK2Ari4TRU oPFphb1xvl0KlRSVuJLw2sD deQbXnRKBmw1rngvFjRfXlN AJkRQCzJRJpnKQkS809m0mx m2hqzsKpfXV7NGKqHZL6JAc fvtQjhhW9OUslvOLnTsF8NQ unnbIyXOsymtOrxxVqPpr6Z ANxK654FXP8oRgga7tgEVO1 SBCsILWtHvEzMz8neFBxN55 2UXDeOIRJFXHrqVh9UOMnth ClwuYatRDHu339S438n6ntA IKvrrAfgNcQviknk4zxO942 XHBhcGVydzEyMjQwXHBhcGV byLX0WNUwIA3fpznaYWkuDM jqUHXvqqU1OGBqzIPoE2GgA JWzSI9ccgizKCJ0BAoiHCYw UJE6ZjIjGRWou2Uruvt0AnG pzc3fyc07XKM2i5NxsFtxOR Q5DZG2SiPoTv3xtEYlVPLyU R2yJcGxeNPfCAKgsq62cOaz UOsepgPhkI6rMgOzJOOufVA wAQUgOI6pzRWkPUFbsZ6vyi xjXHBnYnJkcmhlYWRccGdic uJzBh1zcPelUGL2QDkxN8py aG7eTwD6ESpyH8qhuI1sDBw 9ZNkbpOC8HVXknN4eNE2ovw xux3vaMVqwYJrsJVIdqlK3f cI4RPJhtCOdV9ZxtV7hSFIb KP4udkxku5xeSCT0LIwzBHG fXVG8PcSqRTDdk9Zdfbv7Ub Pry1XqhTHlVXyvD94gs219P DTuaiTjU3oxsDNoelgjpJAw bcovZEyvsvJ8KVXhANVzSGz uXGYxXGZzMjJcbGFuZzEwMz NcaGljaFxmMVxkYmNoXGYxX XkdO7okRyAsRtBnPxLFyv8m g6GxXFXylwU6qPngZGNvt7V mm8ZwYyDBBMKqH5NwXE0oqI WuGAOlaz65 [facility] Microscopic Description u0iwhZKrVOJczDUa ZjIyMDA mFUYpw0ckWQHbsOKdXyNsCr NcZnRuYmpcdWMxXGRlZmYwe 5pey600eZNta2ucTUZaHtO6 xFVuWODqiLWxD575UOZjXGz ec1fxo6KaZTIgyJLax0V3DW RZoibpyQo3nSmnD69bu1B0U tnaS0fcMICyPTUeH6XyEJ3k UFOwYln3LHI7WEW4STGyEMC vM3CwGY8fAKUoxXCuWCy9l9 vjoKtqCORsLSP4c9jxTElqi cHgBX4cwp8zqOi3p9bnqwOb LKGxZFJvpSJGDFYwN0LkhIj aRp6mgIy9xQhjXypyUJR8Mg j6NI4kxt09riu6fGycKIFry rroIyR3QDlyEICxsgqxGLt7 PDbvVCYzlDY8OWGolBUpK0I oHORdLE4lgcw2TJT6OOnpOO LrGgD0PRZrhCYxPPLfqFcxN Mdqe424OBW5WmCcUD1mC7Kq p3V7wA7tkEUrSNBlaNOySbQ qPBChkv1bfVEsQKykq5PkJI F6ixZ8bBJmiVOtTIZcRB49S kjei7VnFewtAXN2GIQsqvVw k3Gmh3lhBkHpunHcH7plB1M yZHJoZWFkXHBnYnJkcmZvb3 Unh2HvxPMqrJx3f0ihDKQrT PRbgVzuw9fdCPM8RFDgH1L7 cVFmi2imRAdjGPOqtZJ7xcX 9XUPvdPVgB4MnlV8yCKPuXF 5miiy0b1ngOAC7QVisIVImU uO5hsS2KXWgkAVwSJDyyGgd XPaps515LIK2DiUrDERbt0E wB8GubGhdF93vtJseC97lTF RhrRanqU3anKxviB7tPjXdU nMyNFxxbFxwbGFpblxmMVxm wxArPPxexphwYDMdMVuiQ8o pViFjJFYwwOugUJxkr7RvHY ZeAAUoUiQgBKLpwMSot3Rys 9XpRaDaiEVjsE4ueUgxliR8 WSSfwSCxYp2xmSMqWhNkuVP yfQ== [facility] Pathologic Diagnosis z6vbkRYrMFUuoDCvODK wNVx pfyRsZCHrdAWxI7PcsjyiSQ sdYW3lKV7axDrbaVPudSQdN JYmSrZnf8qqe403gDFdg8uo URXVgqbgdHs8m3wkRSQPeY5 cq0q8iI23GQRrlJ3viMHdLW ckxlReKXvrboBjkrPkQzh2T CD2bPpvQmprnNT4tNYelZQ2 PWndp4ZbdDrajCglEXNdWXK tLKD6A4kdjEP7aEIvrIpnzI LpRU6qz4pcfPG8xrXuZIU1o TmspMZ3vJmltbigx3fqeXW0 fTJ7YGlshNB9HBaxNrHaH8o qGQFukZ2vH53vO2glGGCykN jjAVaqXQPbdOE4YSG1LTZxh 1xsZXZlbHRleHRcJzAxXCdi Jil6a5wwJTNejE21kPNwyaT 7fVxmMVxmczIwXGxpMzYwXG ZpMTgwfXtcbGlzdGxldmVsX LkukiBcccKgGnCmgQI2VKdn PnEfEwItjWZ6MZhmXdBusWM 6KYoafSIoqDP4ORzwyCE2SB f8KLf3ONddATxoQxi8kOqva UX5ZWovlN8rKUIzT69xEpNn YhRvHA13GYdre5QzSTSkjIf jCGDeeO4bLqQzCXnxpfVcvr ZjbjIzXGxldmVsamMwXGxld eAyv1KuprKhzNF3SOdeszGk iLU3eFnpHGXpV6N6C542OZa vntLjgtNvQqDexmn8RFRbSS BfEoG1d2zedWC5tGX6VOxyu VQ7DUedYgQvE2owUPTqwY9b F97rF7bzDXDhjBxjCIyfQOB rqRN1TCV0JDWiq9laUSWemU PwtEOcYyLmLRcqXbz9m0vnM FQxjE28oUFbaiZ0hJaiMJjp czIwfXtcbGlzdGxldmVsXGx lejRpelBzWxBjhZK3XXcsBr DrBkBlbDG9EJbpJcVhkKK6G ObbfSGexRY0BCuccDX5IOb7 QOf5WQyqDUupBql4pPeyjPG 4BZfblR8bLEQqP52nZfFoBg SeBZ40TTgvb1IvCLHifUwkO NZjaE0pZiIpMOzmjxGbsbNu bjIzXGxldmVsamMwXGxldmV su4AjnzMokBV6MOejdyVheI K6fRhsIAPnT3Q4Y746TLchl kQnriSfMgHrwzw2SKJsNOAk XqM3f2upoYP0fLR7PNyvhYQ 2HAcaYoChD7frSWBdmT8nS3 2kF5lpPQZbwTukHXynPATed GN3OBB1ZAWbc0vfFCQtpPXk gVRgEnIrGExqRxt1b8igEYE leJ72zBMmxvS9oLzbAFacnf IwfXtcbGlzdGxldmVsXGxld dVaaxSsWrIbnUO3XVwpWqGx IhPrnGZ1HGhdNkMnmQK5MKf emVEdeXS2ZDlwrUJ9LEe9WI j6WCxyXCumUkj0bNsczSH6T XboiL2vZXCfX88nFmBbUkFn KM47IEcfu6WoJEOqpKxuMCB xvF8tJgClQCaipxOmwbXyez IzXGxldmVsamMwXGxldmVsc 9YbwaNonNH5ZLrgqhCymAX5 gYzaBKQqP2E7L361WFphbqH yoqTkCzZxtap2MTSzEQBaBo F6vS63XFburLbbtP12NFHfh GZbpIXghZC2GHjjoYueaR82 BHBzyWIiVKzda2QlSWLeZbL 9DrRvHPIltAcqlE14AYHqaF JvI566vcGdKZauOY07ZWFvq GVydzEyMjQwXHBhcGVyaDE1 MRJiBA2lqxckZNjqBFofKVZ jsnX2OYTpgLIzU5VpWUAzBE 1gmrxaMIN0YYmwLZHdYWE8U uGkUBOwv3Sccdn0AhSyjSLt ARpjrJZgkufrCANsQxHdC1B wCDDbOOY3h10vA9kzEOTqd9 BzeTpccGFyXGxpMzYwXGZpM OsiCXobgfJ0CFsryuTckNg3 oCRfsEjoqI0tRdeqglZtYHQ qSGWKn4MbgZLcxi8uwP0dPE TdogNBnoAOCWdjX25hYBN5G KOvdZtuv9KnOHgzHV04vZWp ZWRccGFyfQ== [facility] Professional Interpretation Performed at: n1llfVUjVJPylYXrAlOgLVN gGTUbr6gaIVJdsMSoStFbJw NcZnRuYmpcdWMxXGRlZmYwe 2abu286qZRjc1thRZWzOdX9 wMZuQGCihXUkN708PWUaDVf du5goi5JnLIAyfLCok1A1CN VHrtiaxNf4aFmmP51vu0F2O tfmJ9cyFZMgILLcM8PzDE2g VWLcXep1JGK7LXE0ETXmKSD pA4OfKI3yDWCuvOMlADh4f5 tmkAspXERxNMC9i1lbXTpkg lWrOD7plg0umUf4t8leaxGj SFWsZGHnpBOOJISfM2UnsMu yQz3wrEl2nJhuCljeOTJ9Is e2DJ7xep48aov7wCvaIDTrm imnYhM7FCycCCHiznsgGLw4 EUboCMCxlAF9GMRiuGEeA6M yJZGgCE4ybjs3BDL4KUmdFB SrXuK8JLYlqNUuLHRieOjmZ Mciw735FBA6EiVnVN6kH5Yg t6D3dA6ggSBhRXZytEXjKgC jMWTfug0rnSVsFDbhx5WtXG Q4qtK9zOPeoSWkBJCdRC04I xvks5CyFyqzPYO7AZAkiuRm n3Vok5clFcEmnxXoS3obY2C yZHJoZWFkXHBnYnJkcmZvb3 Fey1FbwSZrwGo7r6avTZSbO LIreBltz5fsMWQ5CHMyZ8W1 tAAfr7zqKMnoMCMliCI7ssV 4SPCzyHXqK7YgyG5uJAQoEA 2twlg6q3ztUOS2GEbmXGUiZ jV7poO0ALMawRFaRZKigRrr ZSece893GON7XwOeHNUzc6L bF6TrcUagM03xpPbyE47lTS ImqIbknJ9weUevnL8kGmNrC nMyNFxwYXJkXHBsYWluXGYx XGZzMjJcbGFuZzEwMzNcaGl jaFxmMVxkYmNoXGYxXGxvY2 cnMcMkJlExMaEQR2PcM5VXV gJSQN6JBFfSGGstB1KSDYUW LZDNAT1YY4PEHFgITp5TZGL GBwbjxHJuPFAbNSDUJLK0NO LpiSwmTBGgXALfqyGBy5r3l VU1gatkR5fpuiH3FhTdXMlt YXJ9 [facility] CBC,PLATELETSon 08-11-2024 Erythrocyte distribution width (RBC) [Ratio] 13.7 % 10.8 - 14.9 % [facility] Hematocrit (Bld) [Volume fraction] 43.2 % 34.9 - 44.3 % [facility] Hemoglobin (Bld) [Mass/Vol] 14 g/dL 11.4 - 15.2 g/dL [facility] Interpretation and review of laboratory results Abnormal [facility] MCH (RBC) [Entitic mass] 29.9 pg 25.9 - 33.9 pg [facility] MCHC (RBC) [Mass/Vol] 32.4 g/dL 31.4 - 35.9 g/dL [facility] [facility] MCV (RBC) [Entitic vol] 92.1 fL 79.6 - 97.7 fL [facility] Platelet mean volume (Bld) [Entitic vol] 11.5 fL 8.5 - 12.2 fL [facility] Platelets (Bld) [#/Vol] 240 10*3/uL 150 - 393 K/uL [facility] RBC (Bld) [#/Vol] 4.69 10*6/uL [facility] WBC (Bld) [#/Vol] 11.76 10*3/uL High 3.99 - 11.19 K/uL [facility] Hematocrit (Bld) [Volume fraction] 43.2 % Normal 34.9-44.3 [facility] Comment on above: Performed By: #### T YPEC #### [facility] (DEFAULT) [address] [place] [address] Hemoglobin (Bld) [Mass/Vol] 14.0 g/dL Normal 11.4-15.2 [facility] Comment on above: Performed By: #### T YPEC #### [facility] (DEFAULT) [address] [place] [address] 82887 MCV (RBC) [Entitic vol] 92.1 fL Normal 79.6-97.7 O [facility] Comment on above: Performed By: #### T YPEC #### [facility] (DEFAULT) [address] [place] [address] 65203 Mean Cell Hgb 29.9 pg Normal 25.9-33.9 [facility] Comment on above: Performed By: #### T YPEC #### [facility] (DEFAULT) [address] [place] [address] 73865 Mean Cell Hgb Conc 32.4 g/dL Normal 31.4-35.9 [facility] Comment on above: Performed By: #### T YPEC #### [facility] (DEFAULT) [address] [place] [address] 27873 Platelet mean volume (Bld) [Entitic vol] 11.5 fL Normal 8.5-12.2 [facility] Comment on above: Performed By: #### T YPEC #### [facility] (DEFAULT) [address] [place] [address] 69589 Platelets (Bld) [#/Vol] 240 10*3/uL Normal 150-393 [facility] Comment on above: Performed By: #### T YPEC #### [facility] (DEFAULT) [address] [place] [address] 81013 RBC (Bld) [#/Vol] 4.69 10*6/uL Normal 3.91-5.04 [facility] Comment on above: Performed By: #### T YPEC #### [facility] (DEFAULT) [address] [place] [address] 49761 RBC Distribution 13.7 % Normal 10.8-14.9 [facility] Comment on above: Performed By: #### T YPEC #### [facility] (DEFAULT) [address] [place] [address] 40138 WBC (Bld) [#/Vol] 11.76 10*3/uL High 3.99-11.19 [facility] Comment on above: Performed By: #### T YPEC #### [facility] (DEFAULT) [address] [place] [address] 85654 CHEM 7 (LYTES,BUN,CREA,GLUC) on 08-11-2024 Anion gap [Moles/Vol] 14 mmol/L 7 - 17 mmol/L [facility] Chloride [Moles/Vol] 103 mmol/L 98 - 10 8 mmol/L [facility] CO2 [Moles/Vol] 26 mmol/L 21 - 31 mmol/L [facility] Creatinine [Mass/Vol] 1.32 mg/dL High 0.50 - 1.20 mg/dL [facility] eGFR, CKD-EPI, Female 41 Low - PINF [facility] Glucose [Mass/Vol] 127 mg/dL 70 - 179 mg/dL [facility] Interpretation and review of laboratory results Abnormal [facility] Osmolality Calc [Osmolality] 306 High [facility] Potassium [Moles/Vol] 4.6 mmol/L 3.5 - 5.0 mmol/L [facility] Sodium [Moles/Vol] 138 mmol/L 135 - 145 mmol/L [facility] Urea nitrogen [Mass/Vol] 53 mg/dL High 7 - 25 mg/dL [facility] Urea nitrogen/Creatinine [Mass ratio] 40 mg/mg [facility] Anion gap [Moles/Vol] 14 mmol/L Normal 7-17 [facility] Comment on above: Performed By: #### H [facility] #### U [facility] (DEFAULT) [address] [place] [address] 24353 Chloride [Moles/Vol] 103 mmol/L Normal 98-108 [facility] Comment on above: Performed By: #### H [facility] #### [facility] (DEFAULT) [address] [place] [address] 19559 CO2 [Moles/Vol] 26 mmol/L Normal 21-31 [facility] Comment on above: Performed By: #### H [facility] #### [place] [facility] (DEFAULT) [address] [address] Creatinine [Mass/Vol] 1.32 mg/dL High 0.50-1.20 [facility] Comment on above: Performed By: #### H [facility] #### [facility] (DEFAULT) [address] [place] [address] 21729 GFR/1.73 sq M.predicted among non-blacks MDRD (S/P/Bld) [Vol rate/Area] 41 mL/min/{1.73_m2} Low >=60 [facility] Comment on above: Result Comment: Repo rted eGFR is based on the CKD-EPI 2020 equation using creatinine, age, and sex. Performed By: #### H [facility] #### [place] [facility] (DEFAULT) [address] [place] [address] Glucose [Mass/Vol] 127 mg/dL Normal Nonfastin -179 mg/dL; Fastin-99 [facility] Comment on above: Performed By: #### [facility] #### [facility] (DEFAULT) [address] [place] [address]49 Osmolality [Osmolality] 306 mosm/kg High 278-305 [facility] Comment on above: Performed By: #### H [facility] #### [facility] (DEFAULT) [address] [address] Potassium [Moles/Vol] 4.6 mmol/L Normal 3.5-5.0 [facility] Comment on above: Performed By: #### H [facility] #### [facility] (DEFAULT) [address] [place] [address] Sodium [Moles/Vol] 138 mmol/L Normal 135-145 [facility] Comment on above: Performed By: #### H EMO #### [facility] (DEFAULT) [address] [place] [address] Urea nitrogen [Mass/Vol] 53 mg/dL High 7-25 [facility] Comment on above: Performed By: #### H EMO #### [facility] (DEFAULT) [address] [place] [address] Urea nitrogen/Creatinine [Mass ratio] 40 mg/mg Normal [facility] Comment on above: Performed By: #### H [facility] #### [facility] (DEFAULT) [address] [place] [address] GLUCOSE POCon 08-11-2024 Glucose [Mass/Vol] 213 mg/dL High 70 - 179 mg/dL [facility] Interpretation and review of laboratory results Abnormal [facility] POC Sample Type CAPBL [facility] Glucose [Mass/Vol] 255 mg/dL High 70 - 179 mg/dL [facility] Interpretation and review of laboratory results Abnormal [facility] POC Sample Type CAPBL [facility] Glucose [Mass/Vol] 190 mg/dL High 70 - 179 mg/dL [facility] Interpretation and review of laboratory results Abnormal [facility] POC Sample Type CAPBL [facility] Glucose [Mass/Vol] 205 mg/dL High 70 - 179 mg/dL [facility] Interpretation and review of laboratory results Abnormal [facility] POC Sample Type CAPBL [facility] MAGNESIUMon 08-11-2024 Interpretation and review of laboratory results Normal [facility] Magnesium [Mass/Vol] 1.9 mg/dL 1.6 - 2 .6 mg/dL [facility] Magnesium [Mass/Vol] 1.9 mg/dL Normal 1.6-2.6 [facility] Comment on above: Performed By: #### M WENDY, CHM7 #### [facility] (DEFAULT) [address] [address] No Panel Informationon 08-11 [facility] BLOOD CULTUREon 08-10-2024 Bacteria identified Cx Nom (Unsp spec) NO GROWTH DAY 5 OF 5 Normal [facility] Comment on above: Order Comment: 2 Bot [...] bottle. Performed By: #### T YPEC #### [facility] (DEFAULT) [address] [address] Bacteria identified Cx Nom (Unsp spec) NO GROWTH DAY 5 OF 5 Normal [facility] Comment on above: Order Comment: 2 Bot [...] bottle. Performed By: #### B LDCULT #### [facility] (DEFAULT) [address] [place] [address] 19708 CBC,PLATELETSon 08-10-2024 Erythrocyte distribution width (RBC) [Ratio] 13.3 % 10.8 - 14.9 % [facility] Hematocrit (Bld) [Volume fraction] 45.1 % High 34.9 - 44.3 % [facility] Hemoglobin (Bld) [Mass/Vol] 14.1 g/dL 11.4 - 15.2 g/dL [facility] Interpretation and review of laboratory results Abnormal [facility] MCH (RBC) [Entitic mass] 29.1 pg 25.9 - 33.9 pg [facility] MCHC (RBC) [Mass/Vol] 31.3 g/dL Low 31.4 - 35.9 g/dL [facility] MCV (RBC) [Entitic vol] 93 fL 79.6 - 97.7 fL [facility] Platelet mean volume (Bld) [Entitic vol] 11.4 fL 8.5 - 12.2 fL [facility] Platelets (Bld) [#/Vol] 216 10*3/uL 150 - 393 K/uL [facility] RBC (Bld) [#/Vol] 4.85 10*6/uL [facility] WBC (Bld) [#/Vol] 13.78 10*3/uL High 3.99 - 11.19 K/uL [facility] Hematocrit (Bld) [Volume fraction] 45.1 % High 34.9-44.3 [facility] Comment on above: Performed By: #### H [facility] #### [facility] (DEFAULT) [address] [address] Hemoglobin (Bld) [Mass/Vol] 14.1 g/dL Normal 11.4-15.2 [facility] Comment on above: Performed By: #### H [facility] #### [facility] (DEFAULT) [address] [address] MCV (RBC) [Entitic vol] 93.0 fL Normal 79.6-97.7 [facility] Comment on above: Performed By: #### H [facility] #### [facility] (DEFAULT) [address] [address] Mean Cell Hgb 29.1 pg Normal 25.9-33.9 [facility] Comment on above: Performed By: #### H EMOGC #### [facility] (DEFAULT) [address] [address] Mean Cell Hgb Conc 31.3 g/dL Low 31.4-35.9 [facility] Comment on above: Performed By: #### H EMOGC #### [facility] (DEFAULT) [address] [address] Platelet mean volume (Bld) [Entitic vol] 11.4 fL Normal 8.5-12.2 [facility] Comment on above: Performed By: #### H EMOGC #### [place] [facility] (DEFAULT) [address] [address] Platelets (Bld) [#/Vol] 216 10*3/uL Normal 150-393 [facility] Comment on above: Performed By: #### H EMOGC #### [facility] (DEFAULT) [address] [address] RBC (Bld) [#/Vol] 4.85 10*6/uL Normal 3.91-5.04 [facility] Comment on above: Performed By: #### H EMOGC #### [facility] (DEFAULT) [address] [address] RBC Distribution 13.3 % Normal 10.8-14.9 [facility] Comment on above: Performed By: #### H EMOGC #### [facility] (DEFAULT) [address] [address] WBC (Bld) [#/Vol] 13.78 10*3/uL High 3.99-11.19 [facility] Comment on above: Performed By: #### H EMOGC #### [facility] (DEFAULT) [address] [address] CHEM 7 (LYTES,BUN,CREA,GLUC) on 08-10-2024 Anion gap [Moles/Vol] 16 mmol/L 7 - 17 mmol/L [facility] Chloride [Moles/Vol] 103 mmol/L 98 - 10 8 mmol/L [facility] CO2 [Moles/Vol] 24 mmol/L 21 - 31 mmol/L [facility] Creatinine [Mass/Vol] 1.36 mg/dL High 0.50 - 1.20 mg/dL [facility] eGFR, CKD-EPI, Female 40 Low - PINF [facility] Glucose [Mass/Vol] 186 mg/dL High 70 - 179 mg/dL [facility] Interpretation and review of laboratory results Abnormal [facility] Osmolality Calc [Osmolality] 308 High [facility] Potassium [Moles/Vol] 4.9 mmol/L 3.5 - 5.0 mmol/L [facility] Sodium [Moles/Vol] 138 mmol/L 135 - 145 mmol/L [facility] Urea nitrogen [Mass/Vol] 47 mg/dL High 7 - 25 mg/dL [facility] Urea nitrogen/Creatinine [Mass ratio] 35 mg/mg [facility] Anion gap [Moles/Vol] 16 mmol/L Normal 7-17 [facility] Comment on above: Performed By: #### Jaiden NGUYEN CHM7 ####[facility] (DEFAULT)[address] [place] [address] Chloride [Moles/Vol] 103 mmol/L Normal 98-108 [facility] Comment on above: Performed By: #### Jaiden NGUYEN CHM7 ####[facility] (DEFAULT)[address] [place] [address] CO2 [Moles/Vol] 24 mmol/L Normal 21-31 [facility] Comment on above: Performed By: #### Jaiden NGUYEN CHM7 ####[facility] (DEFAULT)[address] [place] [address] Creatinine [Mass/Vol] 1.36 mg/dL High 0.50-1.20 [facility] Comment on above: Performed By: #### HEYDI PALACIOS7 ####[facility] (DEFAULT)[address] [place] [address] GFR/1.73 sq M.predicted among non-blacks MDRD (S/P/Bld) [Vol rate/Area] 40 mL/min/{1.73_m2} Low >=60 [facility] Comment on above: Result Comment: Repo rted eGFR is based on the CKD-EPI 2020 equation using creatinine, age, and sex. Performed By: #### CAMERON PALACIOS ####[place] [facility] (DEFAULT)[address] [place] [address] Glucose [Mass/Vol] 186 mg/dL High Nonfastin -179 mg/dL; Fastin-99 [facility] Comment on above: Performed By: #### CAMERON PALACIOS ####[place] [facility] (DEFAULT)[address] [facility] [place] [address] Osmolality [Osmolality] 308 mosm/kg High 278-305 [facility] Comment on above: Performed By: #### CAMERON PALACIOS ####[place] [facility] (DEFAULT)[address] [place] [address] Potassium [Moles/Vol] 4.9 mmol/L Normal 3.5-5.0 [facility] Comment on above: Performed By: #### HEYDI PALACIOS7 ####[facility] (DEFAULT)[address] [place] [address] Sodium [Moles/Vol] 138 mmol/L Normal 135-145 [facility] Comment on above: Performed By: #### HEYDI PALACIOS7 ####[facility] (DEFAULT)[address] [place] [address] Urea nitrogen [Mass/Vol] 47 mg/dL High 7-25 [facility] Comment on above: Performed By: #### HEYDI PALACIOS7 ####[facility] (DEFAULT)[address] [place] [address] Urea nitrogen/Creatinine [Mass ratio] 35 mg/mg Normal [facility] Comment on above: Performed By: #### Jaiden NGUYEN CHM7 ####[facility] (DEFAULT)[address] [place] [address] GLUCOSE POCon 08-10-2024 Glucose [Mass/Vol] 144 mg/dL 70 - 179 mg/dL [facility] Glucose [Mass/Vol] 177 mg/dL 70 - 179 mg/dL [facility] POC Sample Type [facility] Glucose [Mass/Vol] 180 mg/dL High 70 - 179 mg/dL [facility] Interpretation and review of laboratory results Abnormal [facility] POC Sample Type [facility] Glucose [Mass/Vol] 193 mg/dL High 70 - 179 mg/dL [facility] Interpretation and review of laboratory results Abnormal [facility] POC Sample Type [facility] Glucose [Mass/Vol] 200 mg/dL High 70 - 179 mg/dL [facility] Interpretation and review of laboratory results Abnormal [facility] POC Sample Type [facility] Glucose [Mass/Vol] 198 mg/dL High 70 - 179 mg/dL [facility] Interpretation and review of laboratory results Abnormal [facility] POC Sample Type CAPBL [facility] MAGNESIUMon 08-10-2024 Interpretation and review of laboratory results Normal [facility] Magnesium [Mass/Vol] 1.8 mg/dL 1.6 - 2 .6 mg/dL [facility] Magnesium [Mass/Vol] 1.8 mg/dL Normal 1.6-2.6 [facility] Comment on above: Performed By: #### M WENDY M7 ####[facility] (DEFAULT)[address] [place] [address] No Panel Informationon 08-10 [facility] URINE CULTUREOrdered By: Franklin Carcamo on 08-10-2024 Bacteria identified Cx Nom (Unsp spec) Growth [facility] Bacteria identified Cx Nom (Unsp spec) KLEBSIELLA PNEUMONIAE Abnormal [facility] Interpretation and review of laboratory results Abnormal [facility] CBC,PLATELETSon 08-09-2024 Erythrocyte distribution width (RBC) [Ratio] 13.5 % 10.8 - 14.9 % [facility] Hematocrit (Bld) [Volume fraction] 44.4 % High 34.9 - 44.3 % [facility] Hemoglobin (Bld) [Mass/Vol] 14.1 g/dL 11.4 - 15.2 g/dL [facility] Interpretation and review of laboratory results Abnormal [facility] MCH (RBC) [Entitic mass] 29.4 pg 25.9 - 33.9 pg [facility] MCHC (RBC) [Mass/Vol] 31.8 g/dL 31.4 - 35.9 g/dL [facility] MCV (RBC) [Entitic vol] 92.7 fL 79.6 - 97.7 fL [facility] Platelet mean volume (Bld) [Entitic vol] 11.5 fL 8.5 - 12.2 fL [facility] Platelets (Bld) [#/Vol] 226 10*3/uL 150 - 393 K/uL [facility] RBC (Bld) [#/Vol] 4.79 10*6/uL [facility] WBC (Bld) [#/Vol] 12.37 10*3/uL High 3.99 - 11.19 K/uL [facility] Hematocrit (Bld) [Volume fraction] 44.4 % High 34.9-44.3 [facility] Comment on above: Performed By: #### H EMOGC #### [facility] (DEFAULT) [address] [place] [address] Hemoglobin (Bld) [Mass/Vol] 14.1 g/dL Normal 11.4-15.2 [facility] Comment on above: Performed By: #### H EMOGC #### [facility] (DEFAULT) [address] [place] [address] MCV (RBC) [Entitic vol] 92.7 fL Normal 79.6-97.7 [facility] Comment on above: Performed By: #### H EMOGC #### [facility] (DEFAULT) [address] [place] [address] Mean Cell Hgb 29.4 pg Normal 25.9-33.9 [facility] Comment on above: Performed By: #### H EMOGC #### [facility] (DEFAULT) [address] [place] [address] Mean Cell Hgb Conc 31.8 g/dL Normal 31.4-35.9 [facility] Comment on above: Performed By: #### H EMOGC #### [facility] (DEFAULT) [address] [place] [address] Platelet mean volume (Bld) [Entitic vol] 11.5 fL Normal 8.5-12.2 [facility] Comment on above: Performed By: #### H EMOGC #### [facility] (DEFAULT) [address] [place] [address] Platelets (Bld) [#/Vol] 226 10*3/uL Normal 150-393 [facility] Comment on above: Performed By: #### H EMOGC #### [facility] (DEFAULT) [address] [place] [address] RBC (Bld) [#/Vol] 4.79 10*6/uL Normal 3.91-5.04 [facility] Comment on above: Performed By: #### H [facility] #### [facility] (DEFAULT) [address] [place] [address] RBC Distribution 13.5 % Normal 10.8-14.9 [facility] Comment on above: Performed By: #### H [facility] #### [facility] (DEFAULT) [address] [place] [address] WBC (Bld) [#/Vol] 12.37 10*3/uL High 3.99-11.19 [facility] Comment on above: Performed By: #### H [facility] #### [facility] (DEFAULT) [address] [place] [address] CHEM 7 (LYTES,BUN,CREA,GLUC) on 08-09-2024 Anion gap [Moles/Vol] 14 mmol/L 7 - 17 mmol/L [facility] Chloride [Moles/Vol] 103 mmol/L 98 - 10 8 mmol/L [facility] CO2 [Moles/Vol] 26 mmol/L 21 - 31 mmol/L [facility] Creatinine [Mass/Vol] 1.35 mg/dL High 0.50 - 1.20 mg/dL [facility] eGFR, CKD-EPI, Female 40 Low - PINF [facility] Glucose [Mass/Vol] 182 mg/dL High 70 - 179 mg/dL [facility] Interpretation and review of laboratory results Abnormal [facility] Osmolality Calc [Osmolality] 305 [facility] Potassium [Moles/Vol] 4.9 mmol/L 3.5 - 5.0 mmol/L [facility] Sodium [Moles/Vol] 138 mmol/L 135 - 145 mmol/L [facility] Urea nitrogen [Mass/Vol] 38 mg/dL High 7 - 25 mg/dL [facility] Urea nitrogen/Creatinine [Mass ratio] 28 mg/mg [facility] Anion gap [Moles/Vol] 14 mmol/L Normal 7-17 [facility] Comment on above: Performed By: #### H [facility] #### [facility] (DEFAULT) [address] [address] Chloride [Moles/Vol] 103 mmol/L Normal 98-108 [facility] Comment on above: Performed By: #### H [facility] #### [facility] (DEFAULT) [address] [address] CO2 [Moles/Vol] 26 mmol/L Normal 21-31 [facility] Comment on above: Performed By: #### H [facility] #### [place] [facility] (DEFAULT) [address] [address] Creatinine [Mass/Vol] 1.35 mg/dL High 0.50-1.20 [facility] Comment on above: Performed By: #### H [facility] #### [facility] (DEFAULT) [address] [place] [address] GFR/1.73 sq M.predicted among non-blacks MDRD (S/P/Bld) [Vol rate/Area] 40 mL/min/{1.73_m2} Low >=60 [facility] Comment on above: Result Comment: Repo rted eGFR is based on the CKD-EPI 2020 equation using creatinine, age, and sex. Performed By: #### H [facility] #### [place] [facility] (DEFAULT) [address] [place] [address] Glucose [Mass/Vol] 182 mg/dL High Nonfastin -179 mg/dL; Fastin-99 [facility] Comment on above: Performed By: #### [facility] #### [facility] (DEFAULT) [address] [place] [address] Osmolality [Osmolality] 305 mosm/kg Normal 278-305 [facility] Comment on above: Performed By: #### H [facility] #### [facility] (DEFAULT) [address] [address] Potassium [Moles/Vol] 4.9 mmol/L Normal 3.5-5.0 [facility] Comment on above: Performed By: #### H EMO #### [facility] (DEFAULT) [address] [place] [address] Sodium [Moles/Vol] 138 mmol/L Normal 135-145 [facility] Comment on above: Performed By: #### H EMO #### [facility] (DEFAULT) [address] [place] [address] Urea nitrogen [Mass/Vol] 38 mg/dL High 7-25 [facility] Comment on above: Performed By: #### H EMO #### [facility] (DEFAULT) [address] [place] [address] Urea nitrogen/Creatinine [Mass ratio] 28 mg/mg Normal [facility] Comment on above: Performed By: #### H [facility] #### [facility] (DEFAULT) [address] [place] [address] EXTRA MICROon 08-09-2024 [facility] GLUCOSE POCon 08-09-2024 Glucose [Mass/Vol] 186 mg/dL High 70 - 179 mg/dL [facility] Interpretation and review of laboratory results Abnormal [facility] POC Sample Type CAPBL [facility] Glucose [Mass/Vol] 255 mg/dL High 70 - 179 mg/dL [facility] Interpretation and review of laboratory results Abnormal [facility] POC Sample Type [facility] Glucose [Mass/Vol] 235 mg/dL High 70 - 179 mg/dL [facility] Interpretation and review of laboratory results Abnormal [facility] POC Sample Type [facility] Glucose [Mass/Vol] 167 mg/dL 70 - 179 mg/dL [facility] POC Sample Type CAPBL [facility] INTERVENTIONAL UPPER ENDOSCO PYon 08-09-2024 Body surface area Derived from formula 1.9 m2 [facility], [facility] [facility] observation (narrative) [facility] MAGNESIUMon 08-09-2024 Interpretation and review of laboratory results Normal [facility] Magnesium [Mass/Vol] 1.8 mg/dL 1.6 - 2 .6 mg/dL [facility] Magnesium [Mass/Vol] 1.8 mg/dL Normal 1.6-2.6 [facility] Comment on above: Performed By: #### H EMO #### [facility] (DEFAULT) [address] [address] No Panel Informationon 08-09 [facility] PT,INR,PTTon 08-09-2024 aPTT Coag (PPP) [Time] 38.4 s High [facility] INR Coag (Bld) [Relative time] 1 {INR} 0.9 - 1.1 [facility] Interpretation and review of laboratory results Abnormal [facility] PT Coag (PPP) [Time] 13 s [facility] aPTT Coag (Bld) [Time] 38.4 s High 24.0-34.3 [facility] Comment on above: Performed By: #### B LDCULT #### [facility] (DEFAULT) [address] [place] [id number] INR Coag (PPP) [Relative time] 1.0 {INR} Normal 0.9-1.1 [facility] Comment on above: Performed By: #### B LDCULT #### [facility] (DEFAULT) [address] [place] [address] PT Coag (PPP) [Time] 13.0 s Normal 11.9-14.2 [facility] Comment on above: Performed By: #### B LDCULT #### [facility] (DEFAULT) [address] [address] SURG PATH REQUESTon 08-10-19 Case Report [facility] Comment on above: Result Comment: Surg ical Pathology Report Case: [id number] Authorizing Provider: Judson Keith DO Collected: 08/09/2024 10:07 AM Ordering Location: [facility] Received: 08/09/2024 12:13 PM Pathologist: Renae Glez MD Specimen: STOMACH, gastric, r/o HP Performed By: #### S URGP #### [facility] (DEFAULT) [address] [place] [address] Clinical History R/O HP. Associated Diagnosis: None. Medical History: No medical history provided. [facility] Comment on above: Performed By: #### S URGP #### [facility] (DEFAULT) [address] [place] [address] Gross Description [facility] Comment on above: Result Comment: The specimen is received in one properly labeled container with the patient's name and accession number. A. The specimen is designated "gastric, r/o hp" and consists of five fragments of jackson-pink soft tissue, from 0.2 up to 0.6 cm in greatest dimension. TE 1 Lab Use Only: JobID [id number] Grosser for this case was: Sunshine Hidalgo Performed By: #### S URGP #### [facility] (DEFAULT) [address] [place] [address] Microscopic Description A microscopic examination was performed. [facility] Comment on above: Performed By: #### S URGP #### [facility] (DEFAULT) [address] [address] Pathologic Diagnosis [facility] Comment on above: Result Comment: Anjelica echols, biopsy: Focal erosion No Helicobacter pylori identified at 1005 EDT Performed By: #### S URGP #### [facility] (DEFAULT) [address] [place] [address] Professional Interpretation Performed at: Normal [facility] Comment on above: Result Comment: [facility] For Immediate Release to Patient's [facility]? Yes [address] [address] Performed By: #### S URGP #### [facility] (DEFAULT) [address] [place] [address] CBC,PLATELETSon 08-08-2024 Erythrocyte distribution width (RBC) [Ratio] 13.6 % 10.8 - 14.9 % [facility] Hematocrit (Bld) [Volume fraction] 45.7 % High 34.9 - 44.3 % [facility] Hemoglobin (Bld) [Mass/Vol] 14.4 g/dL 11.4 - 15.2 g/dL [facility] Interpretation and review of laboratory results Abnormal [facility] MCH (RBC) [Entitic mass] 29.4 pg 25.9 - 33.9 pg [facility] MCHC (RBC) [Mass/Vol] 31.5 g/dL 31.4 - 35.9 g/dL [facility] MCV (RBC) [Entitic vol] 93.3 fL 79.6 - 97.7 fL [facility] Platelet mean volume (Bld) [Entitic vol] 10.9 fL 8.5 - 12.2 fL [facility] Platelets (Bld) [#/Vol] 212 10*3/uL 150 - 393 K/uL [facility] RBC (Bld) [#/Vol] 4.9 10*6/uL [facility] WBC (Bld) [#/Vol] 10.39 10*3/uL 3.99 - 11.19 K/uL [facility] Hematocrit (Bld) [Volume fraction] 45.7 % High 34.9-44.3 [facility] Comment on above: Performed By: #### H EMO #### [facility] (DEFAULT) [address] [place] [address] Hemoglobin (Bld) [Mass/Vol] 14.4 g/dL Normal 11.4-15.2 [facility] Comment on above: Performed By: #### H EMOGC #### [facility] (DEFAULT) [address] [place] [address] MCV (RBC) [Entitic vol] 93.3 fL Normal 79.6-97.7 [facility] Comment on above: Performed By: #### H EMOGC #### [facility] (DEFAULT) [address] [place] [address] Mean Cell Hgb 29.4 pg Normal 25.9-33.9 [facility] Comment on above: Performed By: #### H EMO #### [facility] (DEFAULT) [address] [place] [address] Mean Cell Hgb Conc 31.5 g/dL Normal 31.4-35.9 [facility] Comment on above: Performed By: #### H EMOGC #### [facility] (DEFAULT) [address] [place] [address] Platelet mean volume (Bld) [Entitic vol] 10.9 fL Normal 8.5-12.2 [facility] Comment on above: Performed By: #### H EMOGC #### [facility] (DEFAULT) [address] [place] [address] Platelets (Bld) [#/Vol] 212 10*3/uL Normal 150-393 [facility] Comment on above: Performed By: #### H EMOGC #### [facility] (DEFAULT) [address] [place] [address] RBC (Bld) [#/Vol] 4.90 10*6/uL Normal 3.91-5.04 [facility] Comment on above: Performed By: #### H EMOGC #### [facility] (DEFAULT) [address] [place] [address] RBC Distribution 13.6 % Normal 10.8-14.9 [facility] Comment on above: Performed By: #### H [facility] #### [facility] (DEFAULT) [address] [place] [address] WBC (Bld) [#/Vol] 10.39 10*3/uL Normal 3.99-11.19 [facility] Comment on above: Performed By: #### H [facility] #### [facility] (DEFAULT) [address] [place] [address] CHEM 7 (LYTES,BUN,CREA,GLUC) on 08-08-2024 Anion gap [Moles/Vol] 15 mmol/L 7 - 17 mmol/L [facility] Chloride [Moles/Vol] 104 mmol/L 98 - 10 8 mmol/L [facility] CO2 [Moles/Vol] 25 mmol/L 21 - 31 mmol/L [facility] Creatinine [Mass/Vol] 1.15 mg/dL 0.50 - 1.20 mg/dL [facility] eGFR, CKD-EPI, Female 48 Low - PINF [facility] Glucose [Mass/Vol] 111 mg/dL 70 - 179 mg/dL [facility] Interpretation and review of laboratory results Abnormal [facility] Osmolality Calc [Osmolality] 302 [facility] Potassium [Moles/Vol] 4.3 mmol/L 3.5 - 5.0 mmol/L [facility] Sodium [Moles/Vol] 140 mmol/L 135 - 145 mmol/L [facility] Urea nitrogen [Mass/Vol] 35 mg/dL High 7 - 25 mg/dL [facility] Urea nitrogen/Creatinine [Mass ratio] 30 mg/mg [facility] Anion gap [Moles/Vol] 15 mmol/L Normal 7-17 [facility] Comment on above: Performed By: #### M WENDY, CHM7 ####[facility] (DEFAULT)[address] [place] [address] Chloride [Moles/Vol] 104 mmol/L Normal 98-108 [facility] Comment on above: Performed By: #### CAMERON PALACIOS ####[facility] (DEFAULT)[address] [place] [address] CO2 [Moles/Vol] 25 mmol/L Normal 21-31 [facility] Comment on above: Performed By: #### HEYDI PALACIOS7 ####[facility] (DEFAULT)[address] [facility] [place] [address] Creatinine [Mass/Vol] 1.15 mg/dL Normal 0.50-1.20 [facility] Comment on above: Performed By: #### HEYDI PALACIOS7 ####[facility] (DEFAULT)[address] [place] [address], [place] [address] GFR/1.73 sq M.predicted among non-blacks MDRD (S/P/Bld) [Vol rate/Area] 48 mL/min/{1.73_m2} Low >=60 [facility] Comment on above: Result Comment: Repo rted eGFR is based on the CKD-EPI 2020 equation using creatinine, age, and sex. Performed By: #### CAMERON PALACIOS ####[facility] (DEFAULT)[address] [place] [address], [place] [address] Glucose [Mass/Vol] 111 mg/dL Normal Nonfastin -179 mg/dL; Fastin-99 [facility] Comment on above: Performed By: #### CAMERON PALACIOS ####[facility] (DEFAULT)[address] [place] [address], [place] [address] Osmolality [Osmolality] 302 mosm/kg Normal 278-305 [facility] Comment on above: Performed By: #### HEYDI PALACIOS7 ####[facility] (DEFAULT)[address] [place] [address], [place] [address] Potassium [Moles/Vol] 4.3 mmol/L Normal 3.5-5.0 [facility] Comment on above: Performed By: #### HEYDI PALACIOS7 ####[facility] (DEFAULT)[address] [place] [address] Sodium [Moles/Vol] 140 mmol/L Normal 135-145 [facility] Comment on above: Performed By: #### M WENDY CHM7 ####[facility] (DEFAULT)[address] [place] [address] Urea nitrogen [Mass/Vol] 35 mg/dL High 7-25 [facility] Comment on above: Performed By: #### M WENDY CHM7 ####[facility] (DEFAULT)[address] [place] [address] Urea nitrogen/Creatinine [Mass ratio] 30 mg/mg Normal [facility] Comment on above: Performed By: #### M WENDY CHM7 ####[facility] (DEFAULT)[address] [facility] [place] [address] CT HEAD WITHOUT CONTRASTon 0 08-08-2024 CT [...] have reviewed and approved this report. Normal [facility] CT Head WO contraston 2024 RADIOLOGY RADIOLOGY [facility] Radiology Study observation (narrative) [facility] GLUCOSE POCon 08-08-2024 Glucose [Mass/Vol] 150 mg/dL 70 - 179 mg/dL [facility] POC Sample Type CAPBL [facility] Glucose [Mass/Vol] 148 mg/dL 70 - 179 mg/dL [facility] POC Sample Type CAPBL [facility] Glucose [Mass/Vol] 192 mg/dL High 70 - 179 mg/dL [facility] Interpretation and review of laboratory results Abnormal [facility] POC Sample Type [facility] Glucose [Mass/Vol] 198 mg/dL High 70 - 179 mg/dL [facility] Interpretation and review of laboratory results Abnormal [facility] POC Sample Type [facility] Glucose [Mass/Vol] 186 mg/dL High 70 - 179 mg/dL [facility] Interpretation and review of laboratory results Abnormal [facility] POC Sample Type CAPBL [facility] MAGNESIUMon 08-08-2024 Interpretation and review of laboratory results Normal [facility] Magnesium [Mass/Vol] 1.7 mg/dL 1.6 - 2 .6 mg/dL [facility] Magnesium [Mass/Vol] 1.7 mg/dL Normal 1.6-2.6 [facility] Comment on above: Performed By: #### M [facility] ####[facility] (DEFAULT)[address] [place] [address] No Panel Informationon 08-08 [facility] URINALYSIS REFLEX TO CULTURE PERFORMABLEOrdered By: Danya Yates on 08-08-2024 Appearance (U) Cloudy Abnormal Clear [facility] Bacteria LM Ql (Urine sed) PRESENT Abnormal ABSENT [facility] Color (U) Yellow Yellow [facility] Epithelial cells.squamous LM Ql (Urine sed) 0-2/hpf 0-2/hpf, 3-5/hpf = 1+ [facility] Glucose Test strip (U) [Mass/Vol] Negative Negative [facility] Interpretation and review of laboratory results Abnormal [facility] Ketones (U) [Mass/Vol] Trace Abnormal Negative OS [facility] Leukocyte esterase Test strip Ql (U) Large Abnormal Negative [facility] Nitrite Ql (U) Positive Abnormal Negative [facility] pH (U) 7.0 [pH] 5.0 - 7.0 [facility] Protein (U) [Mass/Vol] Trace Abnormal Negative OS [facility] RBC (U) [#/Vol] Trace Abnormal Negative [facility] RBC LM.HPF (Urine sed) [#/Area] 6-10 Abnormal [facility] Specific gravity (U) [Rel density] 1.023 1.001 - 1.035 [facility] Urobilinogen (U) [Mass/Vol] 1.0 E.U./dL 0.2 E.U/dL, 1.0 E.U/dL [facility] WBC LM.HPF (Urine sed) [#/Area] /[HPF] Abnormal [facility] URINALYSIS REFLEX TO CULTURE PERFORMABLEon 08-08-2024 Appearance (U) Cloudy Abnormal Clear [facility] Comment on above: Order Comment: For i ndwelling catheters, specimen collection is acceptable on catheter day 1 and 2 only. ? Performed By: #### T YPEC #### [facility] (DEFAULT) [address] [place] [address] Bacteria PRESENT Abnormal ABSENT [facility] Comment on above: Order Comment: For i ndwelling catheters, specimen collection is acceptable on catheter day 1 and 2 only. ? Performed By: #### T YPEC #### [facility] (DEFAULT) [address] [place] [address] Blood Urine Trace Abnormal Negative [facility] Comment on above: Order Comment: For i ndwelling catheters, specimen collection is acceptable on catheter day 1 and 2 only. ? Performed By: #### T YPEC #### [facility] (DEFAULT) [address] [place] [address] Color (U) Yellow Normal Yellow [facility] Comment on above: Order Comment: For i ndwelling catheters, specimen collection is acceptable on catheter day 1 and 2 only. ? Performed By: #### T YPEC #### [facility] (DEFAULT) [address] [place] [address] Glucose Ql (U) Negative Normal Negative [facility] Comment on above: Order Comment: For i ndwelling catheters, specimen collection is acceptable on catheter day 1 and 2 only. ? Performed By: #### T YPEC #### [facility] (DEFAULT) [address] [place] [address] Ketones Ql (U) Trace Abnormal Negative [facility] Comment on above: Order Comment: For i ndwelling catheters, specimen collection is acceptable on catheter day 1 and 2 only. ? Performed By: #### T YPEC #### [facility] (DEFAULT) [address] [place] [address] Leukocyte esterase Test strip Ql (U) Large Abnormal Negative [facility] Comment on above: Order Comment: For i ndwelling catheters, specimen collection is acceptable on catheter day 1 and 2 only. ? Performed By: #### T YPEC #### [facility] (DEFAULT[facility] [address] [place] [address] Nitrites Urine Positive Abnormal Negative [facility] Comment on above: Order Comment: For i ndwelling catheters, specimen collection is acceptable on catheter day 1 and 2 only. ? Performed By: #### T YPEC #### [facility] (DEFAULT) [address] [place] [address] pH (U) 7.0 [pH] Normal 5.0-7.0 [facility] Comment on above: Order Comment: For i ndwelling catheters, specimen collection is acceptable on catheter day 1 and 2 only. ? Performed By: #### T YPEC #### [facility] (DEFAULT) [address] [place] [address] Protein Urine Trace Abnormal Negative [facility] Comment on above: Order Comment: For i ndwelling catheters, specimen collection is acceptable on catheter day 1 and 2 only. ? Performed By: #### T YPEC #### [facility] (DEFAULT) [address] [place] [address] RBC Urine 6-10 Abnormal 0-2 [facility] Comment on above: Order Comment: For i ndwelling catheters, specimen collection is acceptable on catheter day 1 and 2 only. ? Performed By: #### T YPEC #### [facility] (DEFAULT) [address] [place] [address] Specific [place] Urine 1.023 Normal 1.001-1.035 [facility] Comment on above: Order Comment: For i ndwelling catheters, specimen collection is acceptable on catheter day 1 and 2 only. ? Performed By: #### T YPEC #### [facility] (DEFAULT) [address] [place] [address] Squamous/Epithelial Cells, Urine 0-2/hpf Normal 0-2/hpf, 3-5/hpf = 1+ [facility] Comment on above: Order Comment: For i ndwelling catheters, specimen collection is acceptable on catheter day 1 and 2 only. ? Performed By: #### T YPEC #### [facility] (DEFAULT) [address] [place] [address] Urobilinogen Urine 1.0 E.U./dL Normal 0.2 E.U/d L, 1.0 E.U/dL [facility] Comment on above: Order Comment: For i ndwelling catheters, specimen collection is acceptable on catheter day 1 and 2 only. ? Performed By: #### T YPEC #### [facility] (DEFAULT) [address] [address] WBC LM.HPF (Urine sed) [#/Area] /[HPF] Abnormal 0 - 5 [facility] Comment on above: Order Comment: For i ndwelling catheters, specimen collection is acceptable on catheter day 1 and 2 only. ? Performed By: #### T YPEC #### [facility] (DEFAULT) [address] [address] URINE CULTUREon 08-08-2024 Amikacin [Susceptibility] <= Invalid Interpretation Code [facility] Comment on above: Order Comment: For i [...] #### T YPEC #### [facility] (DEFAULT) [address] [address] Ampicillin [Susceptibility] >=32 Resistant [facility] Comment on above: Order Comment: For i [...] ? Performed By: #### T YPEC #### [facility] (DEFAULT) [address] [address] Ampicillin+Sulbactam [Susceptibility] >=32 Resistant [facility] Comment on above: Order Comment: For i [...] ? Performed By: #### T YPEC #### [facility] (DEFAULT) [address] [address] ceFAZolin [Susceptibility] >= Resistant [facility] Comment on above: Order Comment: For i [...] #### T YPEC #### [facility] (DEFAULT) [address] [address] Cefepime [Susceptibility] <= Invalid Interpretation Code [facility] Comment on above: Order Comment: For i [...] ? Performed By: #### T YPEC #### [facility] (DEFAULT) [address] [place] [address] cefTRIAXone [Susceptibility] <= Invalid Interpretation Code [facility] Comment on above: Order Comment: For i [...] ? Performed By: #### T YPEC #### [facility] (DEFAULT) [address] [place] [address] Ciprofloxacin [Susceptibility] >= Resistant [facility] Comment on above: Order Comment: For i [...] ? Performed By: #### T YPEC #### [facility] (DEFAULT) [address] [address] Ertapenem [Susceptibility] <= Invalid Interpretation Code [facility] Comment on above: Order Comment: For i [...] ? Performed By: #### T YPEC #### [facility] (DEFAULT) [address] [address] Gentamicin [Susceptibility] <= Invalid Interpretation Code [facility] Comment on above: Order Comment: For i [...] ? Performed By: #### T YPEC #### [facility] (DEFAULT) [address] [address] levoFLOXacin [Susceptibility] >= Resistant [facility] Comment on above: Order Comment: For i [...] ? Performed By: #### T YPEC #### [facility] (DEFAULT) [address] [address] Nitrofurantoin [Susceptibility] 128 ug/mL Resistant [facility] Comment on above: Order Comment: For i [...] ? Performed By: #### T YPEC #### [facility] (DEFAULT) [address] [address] Piperacillin+Tazobactam [Susceptibility] 8 ug/mL Invalid Interpretation Code [facility] Comment on above: Order Comment: For i [...] ? Performed By: #### T YPEC #### [facility] (DEFAULT) [address] [address] Trimethoprim+Sulfametho xazole [Susceptibility] <= Invalid Interpretation Code [facility] Comment on above: Order Comment: For i [...] ? Performed By: #### T YPEC #### [facility] (DEFAULT) [address] [address] CBC,PLATELETSon 08-07-2024 Erythrocyte distribution width (RBC) [Ratio] 13.9 % 10.8 - 14.9 % [facility] Hematocrit (Bld) [Volume fraction] 43.1 % 34.9 - 44.3 % [facility] Hemoglobin (Bld) [Mass/Vol] 13.7 g/dL 11.4 - 15.2 g/dL [facility] Interpretation and review of laboratory results Abnormal [facility] MCH (RBC) [Entitic mass] 29.6 pg 25.9 - 33.9 pg [facility] MCHC (RBC) [Mass/Vol] 31.8 g/dL 31.4 - 35.9 g/dL [facility] MCV (RBC) [Entitic vol] 93.1 fL 79.6 - 97.7 fL [facility] Platelet mean volume (Bld) [Entitic vol] 11.1 fL 8.5 - 12.2 fL [facility] Platelets (Bld) [#/Vol] 214 10*3/uL 150 - 393 K/uL [facility] RBC (Bld) [#/Vol] 4.63 10*6/uL [facility] WBC (Bld) [#/Vol] 11.3 10*3/uL High 3.99 - 11.19 K/uL [facility] CHEM 7 (LYTES,BUN,CREA,GLUC) on 08-07-2024 Anion gap [Moles/Vol] 13 mmol/L 7 - 17 mmol/L [facility] Chloride [Moles/Vol] 105 mmol/L 98 - 10 8 mmol/L [facility] CO2 [Moles/Vol] 28 mmol/L 21 - 31 mmol/L [facility] Creatinine [Mass/Vol] 1.19 mg/dL 0.50 - 1.20 mg/dL [facility] eGFR, CKD-EPI, Female 47 Low - PINF [facility] Glucose [Mass/Vol] 90 mg/dL 70 - 179 mg/dL [facility] Interpretation and review of laboratory results Abnormal [facility] Osmolality Calc [Osmolality] 304 [facility] Potassium [Moles/Vol] 4.2 mmol/L 3.5 - 5.0 mmol/L [facility] Sodium [Moles/Vol] 142 mmol/L 135 - 145 mmol/L [facility] Urea nitrogen [Mass/Vol] 34 mg/dL High 7 - 25 mg/dL [facility] Urea nitrogen/Creatinine [Mass ratio] 29 mg/mg [facility] GLUCOSE POCon 08-07-2024 Glucose [Mass/Vol] 185 mg/dL High 70 - 179 mg/dL [facility] Interpretation and review of laboratory results Abnormal [facility] POC Sample Type CAPBL [facility] Glucose [Mass/Vol] 106 mg/dL 70 - 179 mg/dL [facility] POC Sample Type CAPBL [facility] Glucose [Mass/Vol] 104 mg/dL 70 - 179 mg/dL [facility] POC Sample Type CAPBL [facility] MAGNESIUMon 08-07-2024 Interpretation and review of laboratory results Normal [facility] Magnesium [Mass/Vol] 1.8 mg/dL 1.6 - 2 .6 mg/dL [facility] No Panel Informationon 08-07 [facility] CBC,PLATELETSon 08-06-2024 Hematocrit (Bld) [Volume fraction] 43.1 % Normal 34.9-44.3 [facility] Comment on above: Performed By: #### X M #### [facility] (DEFAULT) [address] [place] [address] Hemoglobin (Bld) [Mass/Vol] 13.7 g/dL Normal 11.4-15.2 [facility] Comment on above: Performed By: #### X M #### [facility] (DEFAULT) [address] [place] [address] MCV (RBC) [Entitic vol] 93.1 fL Normal 79.6-97.7 [facility] Comment on above: Performed By: #### X M #### [facility] (DEFAULT) [address] [address] Mean Cell Hgb 29.6 pg Normal 25.9-33.9 [facility] Comment on above: Performed By: #### X M #### [facility] (DEFAULT) [address] [address] Mean Cell Hgb Conc 31.8 g/dL Normal 31.4-35.9 [facility] Comment on above: Performed By: #### X M #### [facility] (DEFAULT) [address] [address] Platelet mean volume (Bld) [Entitic vol] 11.1 fL Normal 8.5-12.2 [facility] Comment on above: Performed By: #### X M #### [facility] (DEFAULT) [address] [address] Platelets (Bld) [#/Vol] 214 10*3/uL Normal 150-393 [facility] Comment on above: Performed By: #### X M #### [facility] (DEFAULT) [address] [address] RBC (Bld) [#/Vol] 4.63 10*6/uL Normal 3.91-5.04 [facility] Comment on above: Performed By: #### X M #### [facility] (DEFAULT) [address] [address] RBC Distribution 13.9 % Normal 10.8-14.9 [facility] Comment on above: Performed By: #### X M #### [facility] (DEFAULT) [address] [address] WBC (Bld) [#/Vol] 11.30 10*3/uL High 3.99-11.19 [facility] Comment on above: Performed By: #### X M #### [facility] (DEFAULT) [address] [place] [address] Erythrocyte distribution width (RBC) [Ratio] 13.9 % 10.8 - 14.9 % [facility] Hematocrit (Bld) [Volume fraction] 44 % 34.9 - 44.3 % [facility] Hemoglobin (Bld) [Mass/Vol] 13.9 g/dL 11.4 - 15.2 g/dL [facility] Interpretation and review of laboratory results Abnormal [facility] MCH (RBC) [Entitic mass] 29.1 pg 25.9 - 33.9 pg [facility] MCHC (RBC) [Mass/Vol] 31.6 g/dL 31.4 - 35.9 g/dL [facility] MCV (RBC) [Entitic vol] 92.2 fL 79.6 - 97.7 fL [facility] Platelet mean volume (Bld) [Entitic vol] 10.7 fL 8.5 - 12.2 fL [facility] Platelets (Bld) [#/Vol] 216 10*3/uL 150 - 393 K/uL [facility] RBC (Bld) [#/Vol] 4.77 10*6/uL [facility] WBC (Bld) [#/Vol] 12.14 10*3/uL High 3.99 - 11.19 K/uL [facility] CHEM 7 (LYTES,BUN,CREA,GLUC) on 08-06-2024 Anion gap [Moles/Vol] 13 mmol/L Normal 7-17 [facility] Comment on above: Performed By: #### HEYDI PALACIOS7 ####[facility] (DEFAULT)[address] [place] [address] Chloride [Moles/Vol] 105 mmol/L Normal 98-108 [facility] Comment on above: Performed By: #### HEYDI PALACIOS7 ####[facility] (DEFAULT)[address] [place] [address] CO2 [Moles/Vol] 28 mmol/L Normal 21-31 [facility] Comment on above: Performed By: #### HEYDI PALACIOS7 ####[facility] (DEFAULT)[address] [place] [address] Creatinine [Mass/Vol] 1.19 mg/dL Normal 0.50-1.20 [facility] Comment on above: Performed By: #### HEYDI PALACIOS7 ####[facility] (DEFAULT)[address] [place] [address] GFR/1.73 sq M.predicted among non-blacks MDRD (S/P/Bld) [Vol rate/Area] 47 mL/min/{1.73_m2} Low >=60 [facility] Comment on above: Result Comment: Repo rted eGFR is based on the CKD-EPI 2020 equation using creatinine, age, and sex. Performed By: #### CAMERON PALACIOS ####[facility] (DEFAULT)[address] [place] [address] Glucose [Mass/Vol] 90 mg/dL Normal Nonfastin -179 mg/dL; Fastin-99 [facility] Comment on above: Performed By: #### CAMERON PALACIOS ####[facility] [facility] (DEFAULT)[address] [facility] [place] [address] Osmolality [Osmolality] 304 mosm/kg Normal 278-305 [facility] Comment on above: Performed By: #### CAMERON PALACIOS ####[place] [facility] (DEFAULT)[address] [place] [address] Potassium [Moles/Vol] 4.2 mmol/L Normal 3.5-5.0 [facility] Comment on above: Performed By: #### HEYDI PALACIOS7 ####[facility] (DEFAULT)[address] [facility] [place] [address] Sodium [Moles/Vol] 142 mmol/L Normal 135-145 [facility] Comment on above: Performed By: #### Jaiden NGUYEN CHM7 ####[facility] (DEFAULT)[address] [place] [address] Urea nitrogen [Mass/Vol] 34 mg/dL High 7-25 [facility] Comment on above: Performed By: #### Jaiden NGUYEN CHM7 ####[facility] (DEFAULT)[address] [place] [address] Urea nitrogen/Creatinine [Mass ratio] 29 mg/mg Normal [facility] Comment on above: Performed By: #### Jaiden NGUYEN CHM7 ####[facility] (DEFAULT)[address] [place] [address] Anion gap [Moles/Vol] 14 mmol/L 7 - 17 mmol/L [facility] Chloride [Moles/Vol] 107 mmol/L 98 - 10 8 mmol/L [facility] CO2 [Moles/Vol] 27 mmol/L 21 - 31 mmol/L [facility] Creatinine [Mass/Vol] 1.19 mg/dL 0.50 - 1.20 mg/dL [facility] eGFR, CKD-EPI, Female 47 Low - PINF [facility] Glucose [Mass/Vol] 88 mg/dL 70 - 179 mg/dL [facility] Interpretation and review of laboratory results Abnormal [facility] Osmolality Calc [Osmolality] 307 High [facility] Potassium [Moles/Vol] 3.9 mmol/L 3.5 - 5.0 mmol/L [facility] Sodium [Moles/Vol] 144 mmol/L 135 - 145 mmol/L [facility] Urea nitrogen [Mass/Vol] 34 mg/dL High 7 - 25 mg/dL [facility] Urea nitrogen/Creatinine [Mass ratio] 29 mg/mg [facility] GLUCOSE POCon 08-06-2024 Glucose [Mass/Vol] 166 mg/dL 70 - 179 mg/dL [facility] Glucose [Mass/Vol] 106 mg/dL 70 - 179 mg/dL [facility] Glucose [Mass/Vol] 100 mg/dL 70 - 179 mg/dL [facility] POC Sample Type VENO [facility] Glucose [Mass/Vol] 219 mg/dL High 70 - 179 mg/dL [facility] Interpretation and review of laboratory results Abnormal [facility] Glucose [Mass/Vol] 249 mg/dL High 70 - 179 mg/dL [facility] Glucose [Mass/Vol] 178 mg/dL 70 - 179 mg/dL [facility] Glucose [Mass/Vol] 194 mg/dL High 70 - 179 mg/dL [facility] Glucose [Mass/Vol] 93 mg/dL 70 - 179 mg/dL [facility] POC Sample Type VENO [facility] IONIZED CALCIUM, WHOLE BLOOD Ordered By: Zuleika Blunt on 08-06-2024 Calcium.ionized (Bld) [Moles/Vol] 4.72 mg/dL 4.60 - 5.30 mg/dL [facility] Interpretation and review of laboratory results Normal [facility] MAGNESIUMon 08-06-2024 Magnesium [Mass/Vol] 1.8 mg/dL Normal 1.6-2.6 [facility] Comment on above: Performed By: #### M [facility] ####[facility] (DEFAULT)[address] [place] [address] Magnesium [Mass/Vol] 2.4 mg/dL 1.6 - 2 .6 mg/dL [facility] No Panel Informationon 08-06 POC Sample Type CAPBL [facility] Interpretation and review of laboratory results Abnormal [facility] POC Sample Type CAPBL [facility] Interpretation and review of laboratory results Normal [facility] PHOSPHATE, INORGANICon 08-06 Phosphate [Mass/Vol] 3.2 mg/dL 2.2 - 4 .6 mg/dL [facility] RF videography Hypopharynx a nd Esophagus Views W liquid and paste contrast PO during swallowingon 08-06-2024 RADIOLOGY [facility]Y [facility] Rad[facility] Study observation (narrative) [facility] RF videography Hypopharynx a nd Esophagus Views W liquid and paste contrast PO during swallowingOrdered By: Gerry Resendez on 08-06-2024 [facility] Work Phone: SPEECH MODIFIED BARIUM SWALL OWon 08-06-20[facility] FLUORO MODIFIED BARIUM SW ALLOW [...] for specific therapeutic recommendations, please see the quality assurance director report of the speech pathologist. Examination performed by ARCADIO Nicole, under the direct supervision of Gerry Resendez M.D., who was immediately available on site during the examination. I personally viewed and interpreted these images and I have reviewed and approved this report. Normal [facility] CBC,PLATELETSon 08-05-2024 Hematocrit (Bld) [Volume fraction] 44.0 % Normal 34.9-44.3 [facility] Comment on above: Performed By: #### B LDCULT #### [facility] (DEFAULT) [address] [place] [address] Hemoglobin (Bld) [Mass/Vol] 13.9 g/dL Normal 11.4-15.2 [facility] Comment on above: Performed By: #### B LDCULT #### [facility] (DEFAULT) [address] [place] [address] MCV (RBC) [Entitic vol] 92.2 fL Normal 79.6-97.7 [facility] Comment on above: Performed By: #### B LDCULT #### [facility] (DEFAULT) [address] [address] Mean Cell Hgb 29.1 pg Normal 25.9-33.9 [facility] Comment on above: Performed By: #### B LDCULT #### [facility] (DEFAULT) [address] [place] [address] Mean Cell Hgb Conc 31.6 g/dL Normal 31.4-35.9 [facility] Comment on above: Performed By: #### B LDCULT #### [facility] (DEFAULT) [address] [place] [address] Platelet mean volume (Bld) [Entitic vol] 10.7 fL Normal 8.5-12.2 [facility] Comment on above: Performed By: #### B LDCULT #### [place] [facility] (DEFAULT) [address] [address] Platelets (Bld) [#/Vol] 216 10*3/uL Normal 150-393 [facility] Comment on above: Performed By: #### B LDCULT #### [facility] (DEFAULT) [address] [address] RBC (Bld) [#/Vol] 4.77 10*6/uL Normal 3.91-5.04 [facility] Comment on above: Performed By: #### B LDCULT #### [facility] (DEFAULT) [address] [place] [address] RBC Distribution 13.9 % Normal 10.8-14.9 [facility] Comment on above: Performed By: #### B LDCULT #### [facility] (DEFAULT) [address] [place] [address] WBC (Bld) [#/Vol] 12.14 10*3/uL High 3.99-11.19 [facility] Comment on above: Performed By: #### B LDCULT #### [facility] (DEFAULT) [address] [place] [address] Erythrocyte distribution width (RBC) [Ratio] 13.9 % 10.8 - 14.9 % [facility] Hematocrit (Bld) [Volume fraction] 39.6 % 34.9 - 44.3 % [facility] Hemoglobin (Bld) [Mass/Vol] 12.6 g/dL 11.4 - 15.2 g/dL [facility] Interpretation and review of laboratory results Normal [facility] MCH (RBC) [Entitic mass] 29.3 pg 25.9 - 33.9 pg [facility] MCHC (RBC) [Mass/Vol] 31.8 g/dL 31.4 - 35.9 g/dL [facility] MCV (RBC) [Entitic vol] 92.1 fL 79.6 - 97.7 fL [facility] Platelet mean volume (Bld) [Entitic vol] 10.7 fL 8.5 - 12.2 fL [facility] Platelets (Bld) [#/Vol] 198 10*3/uL 150 - 393 K/uL [facility] RBC (Bld) [#/Vol] 4.3 10*6/uL [facility] WBC (Bld) [#/Vol] 10.61 10*3/uL 3.99 - 11.19 K/uL [facility] Hematocrit (Bld) [Volume fraction] 39.6 % Normal 34.9-44.3 [facility] Comment on above: Performed By: #### H EMOGC ####[facility] (DEFAULT)[address] [place] [address] Hemoglobin (Bld) [Mass/Vol] 12.6 g/dL Normal 11.4-15.2 [facility] Comment on above: Performed By: #### H EMOGC ####[facility] (DEFAULT)[address] [facility] [address] MCV (RBC) [Entitic vol] 92.1 fL Normal 79.6-97.7 [facility] Comment on above: Performed By: #### H EMOGC ####[facility] (DEFAULT)[address] [facility] [place] [address] Mean Cell Hgb 29.3 pg Normal 25.9-33.9 [facility] Comment on above: Performed By: #### H EMOGC ####[facility] (DEFAULT)[address] [facility] [place] [address] Mean Cell Hgb Conc 31.8 g/dL Normal 31.4-35.9 [facility] Comment on above: Performed By: #### H EMOGC ####[facility] (DEFAULT)[address] [facility] [place] [address] Platelet mean volume (Bld) [Entitic vol] 10.7 fL Normal 8.5-12.2 [facility] Comment on above: Performed By: #### H EMOGC ####[facility] (DEFAULT)[address] [facility] [place] [address] Platelets (Bld) [#/Vol] 198 10*3/uL Normal 150-393 [facility] Comment on above: Performed By: #### H EMOGC ####[facility] (DEFAULT)[address] [facility] [place] [address] RBC (Bld) [#/Vol] 4.30 10*6/uL Normal 3.91-5.04 [facility] Comment on above: Performed By: #### H EMOGC ####[facility] (DEFAULT)[address] [place] [address] RBC Distribution 13.9 % Normal 10.8-14.9 [facility] Comment on above: Performed By: #### H EMOGC ####[facility] (DEFAULT)[address] [place] [address] WBC (Bld) [#/Vol] 10.61 10*3/uL Normal 3.99-11.19 [facility] Comment on above: Performed By: #### H EMO ####[facility] (DEFAULT)[address] [place] [address] CHEM 7 (LYTES,BUN,CREA,GLUC) on 08-05-2024 Anion gap [Moles/Vol] 14 mmol/L Normal 7-17 [facility] Comment on above: Performed By: #### S URGP #### [facility] (DEFAULT) [address] [place] [address] Chloride [Moles/Vol] 107 mmol/L Normal 98-108 [facility] Comment on above: Performed By: #### S URGP #### [facility] (DEFAULT) [address] [place] [address] CO2 [Moles/Vol] 27 mmol/L Normal 21-31 [facility] Comment on above: Performed By: #### S URGP #### [facility] (DEFAULT) [address] [place] [address] Creatinine [Mass/Vol] 1.19 mg/dL Normal 0.50-1.20 [facility] Comment on above: Performed By: #### S URGP #### [facility] (DEFAULT) [address] [place] [address] GFR/1.73 sq M.predicted among non-blacks MDRD (S/P/Bld) [Vol rate/Area] 47 mL/min/{1.73_m2} Low >=60 [facility] Comment on above: Result Comment: Repo rted eGFR is based on the CKD-EPI 2020 equation using creatinine, age, and sex. Performed By: #### S URGP #### [facility] (DEFAULT) [address] [place] [address] Glucose [Mass/Vol] 88 mg/dL Normal Nonfastin -179 mg/dL; Fastin-99 [facility] Comment on above: Performed By: #### S URGP #### [facility] (DEFAULT) [address] [place] [address] Osmolality [Osmolality] 307 mosm/kg High 278-305 [facility] Comment on above: Performed By: #### S URGP #### [facility] (DEFAULT) [address] [place] [address] Potassium [Moles/Vol] 3.9 mmol/L Normal 3.5-5.0 [facility] Comment on above: Performed By: #### S URGP #### [facility] (DEFAULT) [address] [place] [address] Sodium [Moles/Vol] 144 mmol/L Normal 135-145 [facility] Comment on above: Performed By: #### S URGP #### [facility] (DEFAULT) [address] [place] [address] Urea nitrogen [Mass/Vol] 34 mg/dL High 7-25 [facility] Comment on above: Performed By: #### S URGP #### [facility] (DEFAULT) [address] [place] [address] Urea nitrogen/Creatinine [Mass ratio] 29 mg/mg Normal [facility] Comment on above: Performed By: #### S URGP #### [facility] (DEFAULT) [address] [place] [address] Anion gap [Moles/Vol] 14 mmol/L 7 - 17 mmol/L [facility] Chloride [Moles/Vol] 108 mmol/L 98 - 10 8 mmol/L [facility] CO2 [Moles/Vol] 25 mmol/L 21 - 31 mmol/L [facility] Creatinine [Mass/Vol] 1.45 mg/dL High 0.50 - 1.20 mg/dL [facility] eGFR, CKD-EPI, Female 37 Low - PINF [facility] Glucose [Mass/Vol] 242 mg/dL High 70 - 179 mg/dL [facility] Interpretation and review of laboratory results Abnormal [facility] Osmolality Calc [Osmolality] 315 High [facility] Potassium [Moles/Vol] 3.8 mmol/L 3.5 - 5.0 mmol/L [facility] Sodium [Moles/Vol] 143 mmol/L 135 - 145 mmol/L [facility] Urea nitrogen [Mass/Vol] 35 mg/dL High 7 - 25 mg/dL [facility] Urea nitrogen/Creatinine [Mass ratio] 24 mg/mg [facility] Anion gap [Moles/Vol] 14 mmol/L Normal 7-17 [facility] Comment on above: Performed By: #### X M #### [facility] (DEFAULT) [address] [address] Chloride [Moles/Vol] 108 mmol/L Normal 98-108 [facility] Comment on above: Performed By: #### X M #### [facility] (DEFAULT) [address] [place] [address] CO2 [Moles/Vol] 25 mmol/L Normal 21-31 [facility] Comment on above: Performed By: #### X M #### [facility] (DEFAULT) [address] [address] Creatinine [Mass/Vol] 1.45 mg/dL High 0.50-1.20 [facility] Comment on above: Performed By: #### X M #### [facility] (DEFAULT) [address] [place] [address] GFR/1.73 sq M.predicted among non-blacks MDRD (S/P/Bld) [Vol rate/Area] 37 mL/min/{1.73_m2} Low >=60 [facility] Comment on above: Result Comment: Repo rted eGFR is based on the CKD-EPI 2020 equation using creatinine, age, and sex. Performed By: #### X M #### [facility] (DEFAULT) [address] [place] [address] Glucose [Mass/Vol] 242 mg/dL High Nonfastin -179 mg/dL; Fastin-99 [facility] Comment on above: Performed By: #### X M #### [facility] (DEFAULT) [address] [address] Osmolality [Osmolality] 315 mosm/kg High 278-305 [facility] Comment on above: Performed By: #### X M #### [facility] (DEFAULT) [address] [place] [address] Potassium [Moles/Vol] 3.8 mmol/L Normal 3.5-5.0 [facility] Comment on above: Performed By: #### X M #### [facility] (DEFAULT) [address] [address] Sodium [Moles/Vol] 143 mmol/L Normal 135-145 [facility] Comment on above: Performed By: #### X M #### [facility] (DEFAULT) [address] [address] Urea nitrogen [Mass/Vol] 35 mg/dL High 7-25 [facility] Comment on above: Performed By: #### X M #### [facility] (DEFAULT) [address] [place] [address] Urea nitrogen/Creatinine [Mass ratio] 24 mg/mg Normal [facility] Comment on above: Performed By: #### X M #### [facility] (DEFAULT) [address] [place] [address] Cardiac echo study Procedure Ordered By: Ezequiel Figueroa on 08-05-2024 Ao ASC index 1.56 cm/m2 [facility] Work Phone: [phone] Ao peak fidel 1.23 m/s [facility] Work Phone: [phone] Ao SOV index 1.56 cm/m2 [facility] Work Phone: [phone] Ao STJ index 1.36 cm/m2 [facility] Work Phone: [phone] Ao VTI 24.81 cm [facility] Work Phone: [phone] Ascending [facility] 2.97 [facility] Phone: [phone] AV LVOT peak gradient 4 mmHg [facility] Work Phone: [phone] AV mean gradient 4 [facility]: [phone] AV peak gradient 6 mmHG [facility] Work Phone: [phone] AV valve area 2.72 cm2 [facility] Work Phone: [phone] AV Velocity Ratio 0.8 [facility] Work Phone: [phone] MARKUS (continuity Vmax) 2.55 cm2 [facility] Work Phone: [phone] MARKUS (continuity VTI) 2.72 cm2 [facility] Work Phone: [phone] MARKUS index (continuity Vmax) 1.34 m/s [facility] Work Phone: [phone] MARKUS index (continuity VTI) 1.43 cm2/m2 [facility] Work Phone: [phone] Avg e' pk fidel 0.09 m/s [facility] Work Phone: [phone] Body surface area Derived from formula 1.9 m2 [facility] Work Phone: [phone] BP EF 55 % [facility] Work Phone: [phone] DI (Vmax) 0.8 [facility] Work Phone: [phone] DI (VTI) 0.86 m/2 [facility] Work Phone: [phone] e' lateral pk fidel 0.0845 m/s [facility] Work Phone: [phone] e' lateral pk fidel 0.08 m/s [facility] Work Phone: [phone] e' septal pk fidel 0.0953 m/s [facility]: [phone] e' septal pk fidel 0.1 m/s [facility] Phone: [phone] EF SP 2CH 56 [facility] Work Phone: [phone] EF SP 4CH 51 [facility] Work Phone: [phone] EST RAP 3 mmHg [facility] Work Phone: [phone] EST RVSP 29 mmHg [facility] Work Phone: [phone] FS 31 % [facility] Work Phone: [phone] IVC ostium 1.64 cm [facility] Work Phone: [phone] IVS 1.14 cm [facility] Work Phone: [phone] LA area 4CH 29.07 cm2 [facility] Work Phone: [phone] LA ESV BP (MOD) 86 mL [facility] Work Phone: [phone] LA ESV BP (MOD) index 45 mL/m2 [facility] Work Phone: [phone] LA ESV SP 2CH (MOD) 81 mL [facility] Work Phone: [phone] LA ESV SP 4CH (MOD) 93 mL [facility] Work Phone: [phone] LV EDV BP 88 mL [facility] Work Phone: [phone] LV EDV SP 2CH 85 mL [facility] Work Phone: [phone] LV EDV SP 4CH 86 mL [facility] Work Phone: [phone] LV ESV BP 40 mL [facility] Work Phone: [phone] LV ESV SP 2CH 37 mL [facility] Work Phone: [phone] LV ESV SP 4CH 42 mL [facility] Work Phone: [phone] LV mass 146.48 g [facility] Work Phone: [phone] LV Mass Index 77.1 g/m2 [facility] Work Phone: [phone] LV RWT 0.56 [facility] Work Phone: [phone] LV stroke volume BP (ml) 48 mL [facility] Work Phone: [phone] LV stroke volume index BP 25.26 mL/m2 [facility] Work Phone: [phone] LVIDD 3.93 cm [facility] Work Phone: [phone] LVIDS 2.7 cm [facility] Work Phone: [phone] LVOT area 3.17 cm2 [facility] Work Phone: [phone] LVOT diameter 2.01 cm [facility] Work Phone: [phone] LVOT peak fidel 0.99 m/s [facility] Work Phone: [phone] LVOT peak VTI 21.3 cm [facility] Work Phone: [phone] LVOT stroke volume 68 cm3 [facility] Work Phone: [phone] LVOT stroke volume index 35.55 ml/m2 [facility] Work Phone: [phone] MV mean gradient 3 mmHg [facility] Work Phone: [phone] MV peak gradient 6 mmHg [facility] Work Phone: [phone] MV valve area by continuity eq 2.61 cm2 [facility] Work Phone: [phone] MV VTI 25.92 cm [facility] Work Phone: [phone] MVA (continuity VTI) 2.6 cm [facility] Work Phone: [phone] [facility] AV VTI RATIO PRE STRESS 0.86 [facility] Work Phone: [phone] [facility] ECHO LV BIPLANE SYSTOLIC VOLUME INDEX 21.05 mL/m2 [facility] Work Phone: [phone] [facility] ECHO LV BP DIASTOLIC VOLUME INDEX 46.32 mL/m2 [facility] Work Phone: [phone] PV mean gradient 3 mmHg [facility] Work Phone: [phone] PV peak gradient 6 mmHg [facility] Work Phone: [phone] PV PK FIDEL 1.23 m/s [facility] Work Phone: [phone] PW 1.11 cm [facility] Work Phone: [phone] RA area 4CH (MOD) 22.74 cm2 [facility] [facility] Work Phone: [phone] RA vol index 4CH (MOD) 36.32 mL/m2 O [facility] Work Phone: [phone] Right atrium volume 4 chamber method of disks 69 mL [facility] Work Phone: RV Area diastolic 17.5 cm2 [facility] Work Phone: [phone] RV [facility] RV basal diam 4.56 cm [facility] Work Phone: RV Fractional area change 32 % [facility] Work Phone: RV long diam 6.91 cm [facility] Work Phone: RV mid diam 2.91 cm [facility] Work Phone: RV S' 12.81 cm/s [facility] Work Phone: RVOT peak gradient 5 mmHg [facility] Work Phone: RVOT peak fidel 1.07 m/s [facility] Work Phone: RVOT peak VTI 20.1 cm [facility] Work Phone: Sinus 2.97 cm [facility] Work Phone: STJ 2.58 cm [facility] Work Phone: Stroke Volume 68 cm/mL [facility] Work Phone: [facility] TAPSE 2.08 cm [facility] Work Phone: TR pk grad 26 mmHg [facility] Work Phone: TR pk fidel 2.53 m/s [facility] Work Phone: [facility] Work Phone: Cardiac echo study Procedure on 08-05-2024 [facility] Radiology Study observation (narrative) [facility] ECHOCARDIOGRAMon 08-05-2024 Echocardiography ? No [...] from the original result were not included. [facility] Facility [facility] Patient Information Patient Name Lindsay Acuna Legal [...] Role Read Date Ezequiel Figueroa DO Echo [place] 08/05/2024 Left Heart Measurements LV - Systole [...] long di (more content not included)... Normal [facility] GLUCOSE POCon 08-05-2024 Glucose [Mass/Vol] 228 mg/dL High 70 - 179 mg/dL [facility] Interpretation and review of laboratory results Abnormal [facility] POC Sample Type CAPBL [facility] IONIZED CALCIUM, WHOLE BLOOD on 08-05-2024 ICA 4.72 mg/dL Normal 4.60-5.30 [facility] Comment on above: Performed By: #### S URGP #### [facility] (DEFAULT) [address] [place] [address] 18775 ICA 4.69 mg/dL Normal 4.60-5.30 [facility] Comment on above: Performed By: #### S URGP #### [facility] (DEFAULT) [address] [place] [address]107 IONIZED CALCIUM, WHOLE BLOOD Ordered By: Jairo Layton on 08-05-2024 Calcium.ionized (Bld) [Moles/Vol] 4.69 mg/dL 4.60 - 5.30 mg/dL [facility] Interpretation and review of laboratory results Normal [facility] MAGNESIUMon 08-05-2024 Magnesium [Mass/Vol] 2.4 mg/dL Normal 1.6-2.6 [facility] Comment on above: Performed By: #### S URGP #### [facility] (DEFAULT) [address] [place] [address] 29112 Magnesium [Mass/Vol] 1.8 mg/dL 1.6 - 2 .6 mg/dL [facility] Magnesium [Mass/Vol] 1.8 mg/dL Normal 1.6-2.6 [facility] Comment on above: Performed By: #### X M #### [facility] (DEFAULT) [address] [place] [address] 95621 No Panel Informationon 08-05 Interpretation and review of laboratory results Normal [facility] PHOSPHATE, INORGANICon 08-05 Phosphorous 3.2 mg/dL Normal 2.2-4.6 [facility] Comment on above: Performed By: #### S URGP #### [facility] (DEFAULT) [address] [place] [address] Phosphate [Mass/Vol] 2.7 mg/dL 2.2 - 4 .6 mg/dL [facility] Phosphorous 2.7 mg/dL Normal 2.2-4.6 [facility] Comment on above: Performed By: #### X M #### [facility] (DEFAULT) [address] [place] [address] [facility] AGOrde red By: Madhavi Mcelroy on 08-05-2024 Interpretation and review of laboratory results Abnormal [facility] vWf Ag actual/normal IA (PPP) [Relative mass conc] 230 % High 50 - 180 % [facility] CBC,PLATELETSon 08-04-2024 Erythrocyte distribution width (RBC) [Ratio] 13.7 % 10.8 - 14.9 % [facility] Hematocrit (Bld) [Volume fraction] 40.8 % 34.9 - 44.3 % [facility] Hemoglobin (Bld) [Mass/Vol] 12.7 g/dL 11.4 - 15.2 g/dL [facility] Interpretation and review of laboratory results Abnormal [facility] MCH (RBC) [Entitic mass] 28.7 pg 25.9 - 33.9 pg [facility] MCHC (RBC) [Mass/Vol] 31.1 g/dL Low 31.4 - 35.9 g/dL [facility] MCV (RBC) [Entitic vol] 92.1 fL 79.6 - 97.7 fL [facility] Platelet mean volume (Bld) [Entitic vol] 10.8 fL 8.5 - 12.2 fL [facility] Platelets (Bld) [#/Vol] 228 10*3/uL 150 - 393 K/uL [facility] RBC (Bld) [#/Vol] 4.43 10*6/uL [facility] WBC (Bld) [#/Vol] 11.41 10*3/uL High 3.99 - 11.19 K/uL [facility] Hematocrit (Bld) [Volume fraction] 40.8 % Normal 34.9-44.3 [facility] Comment on above: Performed By: #### H EMOGC #### [facility] (DEFAULT) [address] [place] [address] 52025 Hemoglobin (Bld) [Mass/Vol] 12.7 g/dL Normal 11.4-15.2 [facility] Comment on above: Performed By: #### H EMOGC #### [facility] (DEFAULT) [address] [address] MCV (RBC) [Entitic vol] 92.1 fL Normal 79.6-97.7 [facility] Comment on above: Performed By: #### H EMOGC #### [facility] (DEFAULT) [address] [place] [address] 77847 Mean Cell Hgb 28.7 pg Normal 25.9-33.9 [facility] Comment on above: Performed By: #### H EMOGC #### [facility] (DEFAULT) [address] [place] [address] 31717 Mean Cell Hgb Conc 31.1 g/dL Low 31.4-35.9 [facility] Comment on above: Performed By: #### H EMOGC #### [facility] (DEFAULT) [address] [place] [address] 04142 Platelet mean volume (Bld) [Entitic vol] 10.8 fL Normal 8.5-12.2 [facility] Comment on above: Performed By: #### H EMOGC #### [facility] (DEFAULT) [address] [place] [address] 34869 Platelets (Bld) [#/Vol] 228 10*3/uL Normal 150-393 [facility] Comment on above: Performed By: #### H [facility] #### [facility] (DEFAULT) [address] [place] [address] 87268 RBC (Bld) [#/Vol] 4.43 10*6/uL Normal 3.91-5.04 [facility] Comment on above: Performed By: #### H EMOGC #### [facility] (DEFAULT) [address] [place] [address] 30068 RBC Distribution 13.7 % Normal 10.8-14.9 [facility] Comment on above: Performed By: #### H [facility] #### [facility] (DEFAULT) [address] [place] [address] 95832 WBC (Bld) [#/Vol] 11.41 10*3/uL High 3.99-11.19 [facility] Comment on above: Performed By: #### H [facility] #### [facility] (DEFAULT) [address] [place] [address] 17455 CHEM 7 (LYTES,BUN,CREA,GLUC) Ordered By: Lizette Canseco on 08-04-2024 Anion gap [Moles/Vol] 16 mmol/L 7 - 17 mmol/L [facility] Chloride [Moles/Vol] 109 mmol/L High 98 - 10 8 mmol/L [facility] CO2 [Moles/Vol] 24 mmol/L 21 - 31 mmol/L [facility] Creatinine [Mass/Vol] 1.47 mg/dL High 0.50 - 1.20 mg/dL [facility] eGFR, CKD-EPI, Female 36 Low - PINF [facility] Glucose [Mass/Vol] 181 mg/dL High 70 - 179 mg/dL [facility] Interpretation and review of laboratory results Abnormal [facility] Osmolality Calc [Osmolality] 312 High [facility] Potassium [Moles/Vol] 4 mmol/L 3.5 - 5.0 mmol/L [facility] Sodium [Moles/Vol] 145 mmol/L 135 - 145 mmol/L [facility] Urea nitrogen [Mass/Vol] 26 mg/dL High 7 - 25 mg/dL [facility] Urea nitrogen/Creatinine [Mass ratio] 18 mg/mg [facility] CHEM 7 (LYTES,BUN,CREA,GLUC) on 08-04-2024 Anion gap [Moles/Vol] 16 mmol/L Normal 7-17 [facility] Comment on above: Performed By: #### S URGP #### [facility] (DEFAULT) [address] [place] [address] 45584 Chloride [Moles/Vol] 109 mmol/L High 98-108 [facility] Comment on above: Performed By: #### S URGP #### [facility] (DEFAULT) [address] [place] [address] 69568 CO2 [Moles/Vol] 24 mmol/L Normal 21-31 [facility] Comment on above: Performed By: #### S URGP #### [facility] (DEFAULT) [address] [place] [address] 28037 Creatinine [Mass/Vol] 1.47 mg/dL High 0.50-1.20 [facility] Comment on above: Performed By: #### S URGP #### [facility] (DEFAULT) [address] [place] [address] 54731 GFR/1.73 sq M.predicted among non-blacks MDRD (S/P/Bld) [Vol rate/Area] 36 mL/min/{1.73_m2} Low >=60 [facility] Comment on above: Result Comment: Repo rted eGFR is based on the CKD-EPI 2020 equation using creatinine, age, and sex. Performed By: #### S URGP #### [facility] (DEFAULT) [address] [place] [address] 51273 Glucose [Mass/Vol] 181 mg/dL High Nonfastin -179 mg/dL; Fastin-99 [facility] Comment on above: Performed By: #### S URGP #### [facility] (DEFAULT) [address] [place] [address] Osmolality [Osmolality] 312 mosm/kg High 278-305 [facility] Comment on above: Performed By: #### S URGP #### [facility] (DEFAULT) [address] [place] [address] Potassium [Moles/Vol] 4.0 mmol/L Normal 3.5-5.0 [facility] Comment on above: Performed By: #### S URGP #### [facility] (DEFAULT) [address] [place] [address] 01668 Sodium [Moles/Vol] 145 mmol/L Normal 135-145 [facility] Comment on above: Performed By: #### S URGP #### [facility] (DEFAULT) [address] [place] [address] 24536 Urea nitrogen [Mass/Vol] 26 mg/dL High 7-25 [facility] Comment on above: Performed By: #### S URGP #### [facility] (DEFAULT) [address] [place] [address] 73792 Urea nitrogen/Creatinine [Mass ratio] 18 mg/mg Normal [facility] Comment on above: Performed By: #### S URGP #### [facility] (DEFAULT) [address] [place] [address] HEAD WITHOUT CONTRASTon 0 08-04-2024 CT [...] sinuses are clear. IMPRESSION: Stable exam. Normal [facility] CT Head WO contraston 2024 RADIOLOGY RADIOLOGY [facility] CT Head WO contrastOrdered B y: Chirag Mendenhall on 08-04-[address] [facility] Work Phone: GLUCOSE POCon 08-04-2024 Glucose [Mass/Vol] 227 mg/dL High 70 - 179 mg/dL [facility] Interpretation and review of laboratory results Abnormal [facility] POC Sample Type [facility] Glucose [Mass/Vol] 235 mg/dL High 70 - 179 mg/dL [facility] Interpretation and review of laboratory results Abnormal [facility] POC Sample Type VENO [facility] Glucose [Mass/Vol] 215 mg/dL High 70 - 179 mg/dL [facility] Interpretation and review of laboratory results Abnormal [facility] POC Sample Type CAPBL [facility] Glucose [Mass/Vol] 178 mg/dL 70 - 179 mg/dL [facility] Glucose [Mass/Vol] 157 mg/dL 70 - 179 mg/dL [facility] Glucose [Mass/Vol] 271 mg/dL High 70 - 179 mg/dL [facility] Glucose [Mass/Vol] 267 mg/dL High 70 - 179 mg/dL [facility] Glucose [Mass/Vol] 246 mg/dL High 70 - 179 mg/dL [facility] IONIZED CALCIUM, WHOLE BLOOD Ordered By: Laura Rodriguez on 08-04-2024 Calcium.ionized (Bld) [Moles/Vol] 4.8 mg/dL 4.60 - 5.30 mg/dL [facility] Interpretation and review of laboratory results Normal [facility] IONIZED CALCIUM, WHOLE BLOOD on 08-04-2024 ICA 4.80 mg/dL Normal 4.60-5.30 [facility] Comment on above: Performed By: #### T YPEC #### [facility] (DEFAULT) [address] [place] [address] 03468 MAGNESIUMon 08-04-2024 Magnesium [Mass/Vol] 1.9 mg/dL 1.6 - 2 .6 mg/dL [facility] Magnesium [Mass/Vol] 1.9 mg/dL Normal 1.6-2.6 [facility] Comment on above: Performed By: #### X M #### [facility] (DEFAULT) [address] [place] [address] 51137 No Panel Informationon 08-04 POC Sample Type CAPBL [facility] Interpretation and review of laboratory results Abnormal [facility] Interpretation and review of laboratory results Normal [facility] PHOSPHATE, INORGANICon 08-04 Phosphate [Mass/Vol] 2.8 mg/dL 2.2 - 4 .6 mg/dL [facility] Phosphorous 2.8 mg/dL Normal 2.2-4.6 [facility] Comment on above: Performed By: #### X M #### [facility] (DEFAULT) [address] [place] [address] 02877 SODIUMon 08-04-2024 Interpretation and review of laboratory results Normal [facility] Sodium [Moles/Vol] 142 mmol/L 135 - 145 mmol/L [facility] Sodium [Moles/Vol] 142 mmol/L Normal 135-145 [facility] Comment on above: Order Comment: While on 3% Hypertonic Saline. Performed By: #### S URGP #### [facility] (DEFAULT) [address] [address] Interpretation and review of laboratory results Normal [facility] Sodium [Moles/Vol] 141 mmol/L 135 - 145 mmol/L [facility] Sodium [Moles/Vol] 141 mmol/L Normal 135-145 [facility] Comment on above: Order Comment: [...] bottle. Performed By: #### B LDCULT #### [facility] (DEFAULT) [address] [address] Interpretation and review of laboratory results Normal [facility] Sodium [Moles/Vol] 143 mmol/L 135 - 145 mmol/L [facility] Sodium [Moles/Vol] 143 mmol/L Normal 135-145 [facility] Comment on above: Order Comment: While on 3% Hypertonic Saline. Performed By: #### H EMO #### [facility] (DEFAULT) [address] [place] [address] ABORH TYPE RECONFIRMATIONon 08-03-2024 ABO/RH(D) TYPE Negative [facility] ABO/RH(D) TYPE Negative Normal [facility] Comment on above: Performed By: #### T YPEC #### [facility] (DEFAULT) [address] [address] CBC,PLATELETSon 08-03-2024 Erythrocyte distribution width (RBC) [Ratio] 13.2 % 10.8 - 14.9 % [facility] Hematocrit (Bld) [Volume fraction] 42.8 % 34.9 - 44.3 % [facility] Hemoglobin (Bld) [Mass/Vol] 13.5 g/dL 11.4 - 15.2 g/dL [facility] Interpretation and review of laboratory results Normal [facility] MCH (RBC) [Entitic mass] 29.2 pg 25.9 - 33.9 pg [facility] MCHC (RBC) [Mass/Vol] 31.5 g/dL 31.4 - 35.9 g/dL [facility] MCV (RBC) [Entitic vol] 92.4 fL 79.6 - 97.7 fL [facility] Platelet mean volume (Bld) [Entitic vol] 11.2 fL 8.5 - 12.2 fL [facility] Platelets (Bld) [#/Vol] 227 10*3/uL 150 - 393 K/uL [facility] RBC (Bld) [#/Vol] 4.63 10*6/uL [facility] WBC (Bld) [#/Vol] 8.43 10*3/uL 3.99 - 11.19 K/uL [facility] Hematocrit (Bld) [Volume fraction] 42.8 % Normal 34.9-44.3 [facility] Comment on above: Performed By: #### X M #### [facility] (DEFAULT) [address] [address] Hemoglobin (Bld) [Mass/Vol] 13.5 g/dL Normal 11.4-15.2 [facility] Comment on above: Performed By: #### X M #### [facility] (DEFAULT) [address] [place] [address]3652 MCV (RBC) [Entitic vol] 92.4 fL Normal 79.6-97.7 [facility] Comment on above: Performed By: #### X M #### [facility] (DEFAULT) [address] [place] [address] 56559 Mean Cell Hgb 29.2 pg Normal 25.9-33.9 [facility] Comment on above: Performed By: #### X M #### [facility] (DEFAULT) [address] [address] Mean Cell Hgb Conc 31.5 g/dL Normal 31.4-35.9 [facility] Comment on above: Performed By: #### X M #### [facility] (DEFAULT) [address] [address] Platelet mean volume (Bld) [Entitic vol] 11.2 fL Normal 8.5-12.2 [facility] Comment on above: Performed By: #### X M #### [facility] (DEFAULT) [address] [address] Platelets (Bld) [#/Vol] 227 10*3/uL Normal 150-393 [facility] Comment on above: Performed By: #### X M #### [facility] (DEFAULT) [address] [address] RBC (Bld) [#/Vol] 4.63 10*6/uL Normal 3.91-5.04 [facility] Comment on above: Performed By: #### X M #### [facility] (DEFAULT) [address] [address] RBC Distribution 13.2 % Normal 10.8-14.9 [facility] Comment on above: Performed By: #### X M #### [facility] (DEFAULT) [address] [address] WBC (Bld) [#/Vol] 8.43 10*3/uL Normal 3.99-11.19 [facility] Comment on above: Performed By: #### X M #### [facility] (DEFAULT) [address] [address] CHEM 7 (LYTES,BUN,CREA,GLUC) on 08-03-2024 Anion gap [Moles/Vol] 16 mmol/L 7 - 17 mmol/L [facility] Chloride [Moles/Vol] 103 mmol/L 98 - 10 8 mmol/L [facility] CO2 [Moles/Vol] 23 mmol/L 21 - 31 mmol/L [facility] Creatinine [Mass/Vol] 1.35 mg/dL High 0.50 - 1.20 mg/dL [facility] eGFR, CKD-EPI, Female 40 Low - PINF [facility] Glucose [Mass/Vol] 151 mg/dL 70 - 179 mg/dL [facility] Interpretation and review of laboratory results Abnormal [facility] Osmolality Calc [Osmolality] 295 [facility] Potassium [Moles/Vol] 4.3 mmol/L 3.5 - 5.0 mmol/L [facility] Sodium [Moles/Vol] 138 mmol/L 135 - 145 mmol/L [facility] Urea nitrogen [Mass/Vol] 18 mg/dL 7 - 25 mg/dL [facility] Urea nitrogen/Creatinine [Mass ratio] 13 mg/mg [facility] Anion gap [Moles/Vol] 16 mmol/L Normal 7-17 [facility] Comment on above: Performed By: #### S URGP #### [facility] (DEFAULT) [address] [place] [address] Chloride [Moles/Vol] 103 mmol/L Normal 98-108 [facility] Comment on above: Performed By: #### S URGP #### [facility] (DEFAULT) [address] [place] [address] 75179 CO2 [Moles/Vol] 23 mmol/L Normal 21-31 [facility] Comment on above: Performed By: #### S URGP #### [facility] (DEFAULT) [address] [address] Creatinine [Mass/Vol] 1.35 mg/dL High 0.50-1.20 [facility] Comment on above: Performed By: #### S URGP #### [facility] (DEFAULT) [address] [place] [address] 67586 GFR/1.73 sq M.predicted among non-blacks MDRD (S/P/Bld) [Vol rate/Area] 40 mL/min/{1.73_m2} Low >=60 [facility] Comment on above: Result Comment: Repo rted eGFR is based on the CKD-EPI 2020 equation using creatinine, age, and sex. Performed By: #### S URGP #### [facility] (DEFAULT) [address] [place] [address]67 Glucose [Mass/Vol] 151 mg/dL Normal Nonfastin -179 mg/dL; Fastin-99 [facility] Comment on above: Performed By: #### S URGP #### [facility] (DEFAULT) [address] [place] [address] Osmolality [Osmolality] 295 mosm/kg Normal 278-305 [facility] Comment on above: Performed By: #### S URGP #### [facility] (DEFAULT) [address] [place] [address]756 Potassium [Moles/Vol] 4.3 mmol/L Normal 3.5-5.0 [facility] Comment on above: Result Comment: Spec imen slightly hemolyzed. Potassium results may be falsey elevated by more than 0.5 mmol/L. Consider recollection. Performed By: #### S URGP #### [facility] (DEFAULT) [address] [place] [address] 16473 Sodium [Moles/Vol] 138 mmol/L Normal 135-145 [facility] Comment on above: Performed By: #### S URGP #### [facility] (DEFAULT) [address] [address] Urea nitrogen [Mass/Vol] 18 mg/dL Normal 7-25 [facility] Comment on above: Performed By: #### S URGP #### [facility] (DEFAULT) [address] [place] [address] 53480 Urea nitrogen/Creatinine [Mass ratio] 13 mg/mg Normal [facility] Comment on above: Performed By: #### S URGP #### [facility] (DEFAULT) [address] [place] [address] CT CHEST WITH CONTRAST STANLEY KENYONon 08-03-2024 [...] have reviewed and approved this report. Normal [facility] CT Cervical spine WO contras ton 08-03-2024 RADI[address]Y [address] [facility] CT Cervical spine WO contras tOrdered By: Alissa Chun on 08-03-2024 [facility] Work Phone: CT Chest W contrast Seth RADIOLOGY RADIOLOGY [facility] CT Chest W contrast IVOrdere d By: Kayla Newell on 08-03-2024 [facility] Work Phone: CT HEAD WITHOUT CONTRASTon [...] since the MRI from earlier today Normal [facility] CT Head WO contraston 2024 Radiology Study observation (narrative) [facility] RADIOLOGY RADIOLOGY [facility] Radiology Study observation (narrative) [facility] CT ORBITS WITHOUT CONTRASTon 08-03-2024 [...] basal ganglia hyperdensity concerning for hemorrhage. Normal [facility] CT Orbit WO contraston 08-03 RADIOLOGY RADIOLOGY [facility] CT SPINE CERVICAL WITHOUT CO NTRASTon 08-03-2024 [...] No evidence of acute fractures identified Normal [facility] EXTRA MICROon 08-03-2024 [facility] GLUCOSE POCon 08-03-2024 Glucose [Mass/Vol] 161 mg/dL 70 - 179 mg/dL [facility] POC Sample Type CAPBL [facility] IONIZED CALCIUM, WHOLE BLOOD Ordered By: Alejandra Ness on 08-03-2024 Calcium.ionized (Bld) [Moles/Vol] 4.24 mg/dL Low 4.60 - 5.30 mg/dL [facility] Interpretation and review of laboratory results Abnormal [facility] IONIZED CALCIUM, WHOLE BLOOD on 08-03-2024 ICA 4.24 mg/dL Low 4.60-5.30 [facility] Comment on above: Performed By: #### H [facility] #### [facility] (DEFAULT) [address] [place] [address] MAGNESIUMon 08-03-2024 Magnesium [Mass/Vol] 2.1 mg/dL 1.6 - 2 .6 mg/dL [facility] Magnesium [Mass/Vol] 2.1 mg/dL Normal 1.6-2.6 [facility] Comment on above: Performed By: #### S URGP #### [facility] (DEFAULT) [address] [place] [address] MR Brain WO contraston 08-03 RADIOLOGY RADIOLOGY [facility] Radiology Study observation (narrative) [facility] MR Cervical spine WO contras ton 08-03-2024 RADIOLOGY RADIOLOGY [facility] Radiology Study observation (narrative) [facility] MR Cervical spine WO contras tOrdered By: Kuldeep Tavares on 08-03-2024 [facility] Work Phone: MRI BRAIN WITHOUT CONTRASTon [...] tiny 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 Normal [facility] MRI SPINE CERVICAL WITHOUT C ONTRASTon 08-03-2024 [...] have reviewed and approved this report. Normal [facility] NT-PRO B-TYPE NATRIURETIC PE PTIDEon 08-03-2024 Interpretation and review of laboratory results Abnormal [facility] Natriuretic peptide.B prohormone N-Terminal IA [Mass/Vol] 1115 pg/mL High NINF - 540 pg/mL [facility] No Panel Informationon 08-03 RADIOLOGY RADIOLOGY [facility] Interpretation and review of laboratory results Normal [facility] No Panel InformationOrdered By: Richard Sánchez on 08-03-2024 [facility] Work Phone: PHOSPHATE, INORGANICon 08-03 Phosphate [Mass/Vol] 3.5 mg/dL 2.2 - 4 .6 mg/dL [facility] Phosphorous 3.5 mg/dL Normal 2.2-4.6 [facility] Comment on above: Performed By: #### S URGP #### [facility] (DEFAULT) [address] [place] [address] SCREEN: MRSA/MSSAOrdered By: Gail Collado on 08-03-2024 Interpretation and review of laboratory results Normal [facility] Methicillin Resistant S. Aureus By Pcr Negative Negative [facility] Staphylococcus Aureus By Pcr Negative Negative [facility] SODIUMon 08-03-2024 Interpretation and review of laboratory results Normal [facility] Sodium [Moles/Vol] 139 mmol/L 135 - 145 mmol/L [facility] Sodium [Moles/Vol] 139 mmol/L Normal 135-145 [facility] Comment on above: Order Comment: While on 3% Hypertonic Saline. Performed By: #### N AO ####[facility] (DEFAULT)[address] [place] [address] Interpretation and review of laboratory results Abnormal [facility] Sodium [Moles/Vol] 134 mmol/L Low 135 - 145 mmol/L [facility] Sodium [Moles/Vol] 134 mmol/L Low 135-145 [facility] Comment on above: Order Comment: While on 3% Hypertonic Saline. Performed By: #### H [facility] #### [facility] (DEFAULT) [address] [place] [address] XR ABDOMEN 1 VIEW PORTABLEon 08-03-2024 XR [...] proximal second portion of the duodenum. Normal [facility] XR Abdomen Single viewon RADIOLOGY RADIOLOGY [facility] Radiology Study observation (narrative) [facility] XR Abdomen Single viewOrdere d By: Huey Gibson on 08-03-2024 [facility] XR ELBOW RIGHT 2 VIEWSon XR ELBOW RIGHT 2 VIEWS EXAM: XR ELBOW RI GHT 2 VIEWS, XR HUMERUS RIGHT 2+ VIEWS, XR WRIST RIGHT 3+ VIEWS, 08/02/2024 23:24 PM (accession [id number]), 08/02/2024 23:24 PM (accession [id number]), 08/02/2024 23:23 PM (accession [id number]) COMPARISON: No prior studies available for comparison. [...] dislocation. IMPRESSION: No acute osseous abnormality. Normal [facility] XR HUMERUS RIGHT 2+ VIEWSon 08-03-2024 XR HUMERUS RIGHT 2+ VIEWS EXAM: XR ELBOW RIGHT 2 VIEWS, XR HUMERUS RIGHT 2+ VIEWS, XR WRIST RIGHT 3+ VIEWS, 08/02/2024 23:24 PM (accession [id number]), 08/02/2024 23:24 PM (accession [id number]), 08/02/2024 23:23 PM (accession [id number]) COMPARISON: No prior studies available for comparison. [...] dislocation. IMPRESSION: No acute osseous abnormality. Normal [facility] XR WRIST RIGHT 3+ VIEWSon XR WRIST RIGHT 3+ VIEWS EXAM: XR ELBOW R IGHT 2 VIEWS, XR HUMERUS RIGHT 2+ VIEWS, XR WRIST RIGHT 3+ VIEWS, 08/02/2024 23:24 PM (accession [id number]), 08/02/2024 23:24 PM (accession [id number]), 08/02/2024 23:23 PM (accession [id number]) COMPARISON: No prior studies available for comparison. [...] dislocation. IMPRESSION: No acute osseous abnormality. Normal [facility] 12 Lead EKGon 08-02-2024 12 Lead EKG [facility] [address] [place] [address] 12 Lead EKG 08/02/24 1309 MR#: [id number] Acct: [id number] Name: LINDSAY ACUNA Rep #: [id number] : 1945 78 From: Mj Benavides MD [...] ECG Confirmed by MJ BENAVIDES MD ([id number]), editorial intern NAIMA BEARDEN ([id number]) on 08/05/2024 6:47:07 AM Referred By: Confirmed By: MJ BENAVIDES MD 08/05/24 0647 Date Mj Benavides MD CC: Dr. Pieter Morgan MD; Dr. Kameron Caruso MD Signed Normal [facility] Absolute lymphocyte countOrd ered By: Pieter Morgan on 08-02-2024 Lymphocytes Auto (Unsp spec) [#/Vol] 1.56 10*3/uL 0.83-4.51 [facility] Absolute neutrophil countOrd ered By: Pieter Morgan on 08-02-2024 Neutrophils (Bld) [#/Vol] 6.2 10*3/uL 2.0-7.7 [facility] Activated partial thrombopla stin time (aPTT) in platelet poor plasma by coagulation aOrdered By: Pieter Morgan on 08-02-2024 aPTT Coag (PPP) [Time] 28.4 s 24.1-36.2 [facility] Anion gap in Serum or Plasma Ordered By: Pieter Morgan on 08-02-2024 Anion gap [Moles/Vol] 12 mmol/L 5-15 [facility] Automated lymphocyte count a s percentage of total leukocytesOrdered By: Pieter Morgan on 08-02-2024 Lymphocytes/100 WBC Auto (Unsp spec) 17.9 % Low 19-41 [facility] BUN/creatinine ratioOrdered By: Pieter Morgan on 08-02-2024 Urea nitrogen/Creatinine [Mass ratio] 11.6 mg/mg 10- [facility] Basic Metabolic Profile (BMP )on 08-02-2024 BUN/CRE 11.6 RATIO Normal - [facility] Comment on above: Performed By: #### L 300.4310, L501.4021, L300.3900, L500.2500, L100.0100 #### [facility] [address] [place], [address] Calcium [Mass/Vol] 9.0 mg/dL Normal 7.6-11.0 [facility] Comment on above: Performed By: #### L 300.4310, L501.4021, L300.3900, L500.2500, L100.0100 #### [facility] [address] [place], [address] Chloride [Moles/Vol] 98 mmol/L Normal 98-108 [facility] Comment on above: Performed By: #### L 300.4310, L501.4021, L300.3900, L500.2500, L100.0100 #### [facility] [address] [place], [address] CO2 [Moles/Vol] 22.0 mmol/L Normal 21.0-32.0 [facility] Comment on above: Performed By: #### L 300.4310, L501.4021, L300.3900, L500.2500, L100.0100 #### [facility] [address] [place], [address] Creatinine [Mass/Vol] 1.74 mg/dL High 0.70-1.20 [facility] Comment on above: Performed By: #### L 300.4310, L501.4021, L300.3900, L500.2500, L100.0100 #### [facility] [address] [place], [address] ECRCL 27.14 ml/min Low 50-250 [facility] Comment on above: Performed By: #### L 300.4310, L501.4021, L300.3900, L500.2500, L100.0100 #### [facility] [address] [place], [address] GAP 12 Normal 5-15 [facility] Comment on above: Performed By: #### L 300.4310, L501.4021, L300.3900, L500.2500, L100.0100 #### [facility] [address] [place], [address] GFR/1.73 sq M.predicted among non-blacks MDRD (S/P/Bld) [Vol rate/Area] 29 mL/min/{1.73_m2} Low >60 [facility] Comment on above: Result Comment: mL/m in/1.73m2 CKD-EPI Creatinine Equation (2020) Performed By: #### L 300.4310, L501.4021, L300.3900, L500.2500, L100.0100 #### [facility] [address] [place], [address] Glucose [Mass/Vol] 235 mg/dL High 70-99 [facility] Comment on above: Performed By: #### L 300.4310, L501.4021, L300.3900, L500.2500, L100.0100 #### [facility] [address] [place], [address] Potassium [Moles/Vol] 4.2 mmol/L Normal 3.3-5.1 [facility] Comment on above: Performed By: #### L 300.4310, L501.4021, L300.3900, L500.2500, L100.0100 #### [facility] [address] [place], [address] Sodium [Moles/Vol] 132 mmol/L Low 133-145 [facility] Comment on above: Performed By: #### L 300.4310, L501.4021, L300.3900, L500.2500, L100.0100 #### [facility] [address] [place], [address] Urea nitrogen [Mass/Vol] 20 mg/dL High 4-19 [facility] Comment on above: Performed By: #### L 300.4310, L501.4021, L300.3900, L500.2500, L100.0100 #### [facility] [address] [place], [address] Basophil percentageOrdered B y: Pieter Morgan on 08-02-2024 Basophils/100 WBC (Bld) 0.5 % 0-1 [facility] CBC W/Diff, Automatedon - Absolute Lymph 1.56 X10 3/uL Normal 0.83-4.51 [facility] Comment on above: Performed By: #### L 300.4310, L501.4021, L300.3900, L500.2500, L100.0100 #### [facility] [address] [place], [address] Absolute Neut 6.2 X10 3/uL Normal 2.0-7.7 [facility] Comment on above: Performed By: #### L 300.4310, L501.4021, L300.3900, L500.2500, L100.0100 #### [facility] [address] [place], [address] Basophils/100 WBC (Bld) 0.5 % Normal 0-1 [facility] Comment on above: Performed By: #### L 300.4310, L501.4021, L300.3900, L500.2500, L100.0100 #### [facility] [address] [place], [address] Eosinophils/100 WBC (Bld) 1.0 % Normal 0-5 [facility] Comment on above: Performed By: #### L 300.4310, L501.4021, L300.3900, L500.2500, L100.0100 #### [facility] [address] [place], [address] Erythrocyte distribution width (RBC) [Ratio] 13.3 % Normal 11.6-14.6 [facility] Comment on above: Performed By: #### L 300.4310, L501.4021, L300.3900, L500.2500, L100.0100 #### [facility] [address] [place], [address] Hematocrit (Bld) [Volume fraction] 42.0 % Normal 37-47 [facility] Comment on above: Performed By: #### L 300.4310, L501.4021, L300.3900, L500.2500, L100.0100 #### [facility] [address] [place], [address] Hemoglobin (Bld) [Mass/Vol] 13.8 g/dL Normal 12.0-15.0 [facility] Comment on above: Performed By: #### L 300.4310, L501.4021, L300.3900, L500.2500, L100.0100 #### [facility] [address] [place], [address] IG% 0.300 Normal 0.0-0.9 [facility] Comment on above: Result Comment: IG% - Immature Granulocytes (promyelocytes, myelocytes and metamyelocytes) > 1% indicates that a LEFT SHIFT is Present. Performed By: #### L 300.4310, L501.4021, L300.3900, L500.2500, L100.0100 #### [facility] [address] [place], [address] Lymphocytes/100 WBC (Bld) 17.9 % Low 19-41 [facility] Comment on above: Performed By: #### L 300.4310, L501.4021, L300.3900, L500.2500, L100.0100 #### [facility] [address] [place], [address] MCH (RBC) [Entitic mass] 30.3 pg Normal 27.0-32.0 [facility] Comment on above: Performed By: #### L 300.4310, L501.4021, L300.3900, L500.2500, L100.0100 #### [facility] [address] [place], [address] MCHC (RBC) [Mass/Vol] 32.9 g/dL Normal 32-36 [facility] Comment on above: Performed By: #### L 300.4310, L501.4021, L300.3900, L500.2500, L100.0100 #### [facility] [address] [place], [address] MCV (RBC) [Entitic vol] 92.1 fL Normal 81-99 [facility] Comment on above: Performed By: #### L 300.4310, L501.4021, L300.3900, L500.2500, L100.0100 #### [facility] [address] [place], [address] Monocytes/100 WBC (Bld) 8.9 % Normal 0-10 [facility] Comment on above: Performed By: #### L 300.4310, L501.4021, L300.3900, L500.2500, L100.0100 #### [facility] [address] [place], [address] Neutrophils/100 WBC (Bld) 71.4 % High 47-70 [facility] Comment on above: Performed By: #### L 300.4310, L501.4021, L300.3900, L500.2500, L100.0100 #### [facility] [address] [place], [address] Nucleated RBC (Bld) [#/Vol] 0 10*3/uL Normal 0-5 [facility] Comment on above: Performed By: #### L 300.4310, L501.4021, L300.3900, L500.2500, L100.0100 #### [facility] [address] [place], [address] Platelet mean volume (Bld) [Entitic vol] 10.7 fL Normal 6.2-12.0 [facility] Comment on above: Performed By: #### L 300.4310, L501.4021, L300.3900, L500.2500, L100.0100 #### [facility] [address] [place], [address] Platelets (Bld) [#/Vol] 214 10*3/uL Normal 150-450 [facility] Comment on above: Performed By: #### L 300.4310, L501.4021, L300.3900, L500.2500, L100.0100 #### [facility] [address] [place], [address] RBC (Bld) [#/Vol] 4.56 10*6/uL Normal 4.2-5.4 [facility] Comment on above: Performed By: #### L 300.4310, L501.4021, L300.3900, L500.2500, L100.0100 #### [facility] [address] [place], [address] RDW SD 45.3 fl High 35.1-43.9 [facility] Comment on above: Performed By: #### L 300.4310, L501.4021, L300.3900, L500.2500, L100.0100 #### [facility] [address] [place], [address] WBC (Bld) [#/Vol] 8.7 10*3/uL Normal 4.4-11.0 [facility] Comment on above: Performed By: #### L 300.4310, L501.4021, L300.3900, L500.2500, L100.0100 #### [facility] [address] [place], [address] CBC,PLATELETSon 08-02-2024 Erythrocyte distribution width (RBC) [Ratio] 13.3 % 10.8 - 14.9 % [facility] Hematocrit (Bld) [Volume fraction] 43.8 % 34.9 - 44.3 % [facility] Hemoglobin (Bld) [Mass/Vol] 14 g/dL 11.4 - 15.2 g/dL [facility] Interpretation and review of laboratory results Normal [facility] MCH (RBC) [Entitic mass] 29.4 pg 25.9 - 33.9 pg [facility] MCHC (RBC) [Mass/Vol] 32 g/dL 31.4 - 35.9 g/dL [facility] MCV (RBC) [Entitic vol] 92 fL 79.6 - 97.7 fL [facility] Platelet mean volume (Bld) [Entitic vol] 10.8 fL 8.5 - 12.2 fL [facility] Platelets (Bld) [#/Vol] 245 10*3/uL 150 - 393 K/uL [facility] RBC (Bld) [#/Vol] 4.76 10*6/uL [facility] WBC (Bld) [#/Vol] 8.16 10*3/uL 3.99 - 11.19 K/uL [facility] Hematocrit (Bld) [Volume fraction] 43.8 % Normal 34.9-44.3 [facility] Comment on above: Performed By: #### B LDCULT #### [facility] (DEFAULT) [address] [place] [address] Hemoglobin (Bld) [Mass/Vol] 14.0 g/dL Normal 11.4-15.2 [facility] Comment on above: Performed By: #### B LDCULT #### [facility] (DEFAULT) [address] [place] [address] MCV (RBC) [Entitic vol] 92.0 fL Normal 79.6-97.7 [facility] Comment on above: Performed By: #### B LDCULT #### [facility] (DEFAULT) [address] [place] [address] Mean Cell Hgb 29.4 pg Normal 25.9-33.9 [facility] Comment on above: Performed By: #### B LDCULT #### [facility] (DEFAULT) [address] [place] [address] Mean Cell Hgb Conc 32.0 g/dL Normal 31.4-35.9 [facility] Comment on above: Performed By: #### B LDCULT #### [facility] (DEFAULT) [address] [place] [address] Platelet mean volume (Bld) [Entitic vol] 10.8 fL Normal 8.5-12.2 [facility] Comment on above: Performed By: #### Roby LDCULT #### [facility] (DEFAULT) [address] [place] [address] Platelets (Bld) [#/Vol] 245 10*3/uL Normal 150-393 [facility] Comment on above: Performed By: #### Roby LDCULT #### [facility] (DEFAULT) [address] [place] [address] RBC (Bld) [#/Vol] 4.76 10*6/uL Normal 3.91-5.04 [facility] Comment on above: Performed By: #### Royb LDCULT #### [facility] (DEFAULT) [address] [place] [address] RBC Distribution 13.3 % Normal 10.8-14.9 [facility] Comment on above: Performed By: #### Roby LDCULT #### [facility] (DEFAULT) [address] [place] [address] WBC (Bld) [#/Vol] 8.16 10*3/uL Normal 3.99-11.19 [facility] Comment on above: Performed By: #### Roby LDCULT #### [facility] (DEFAULT) [address] [place] [address] CHEM 7 (LYTES,BUN,CREA,GLUC) on 08-02-2024 Anion gap [Moles/Vol] 16 mmol/L 7 - 17 mmol/L [facility] Chloride [Moles/Vol] 105 mmol/L 98 - 10 8 mmol/L [facility] CO2 [Moles/Vol] 22 mmol/L 21 - 31 mmol/L [facility] Creatinine [Mass/Vol] 1.37 mg/dL High 0.50 - 1.20 mg/dL [facility] eGFR, CKD-EPI, Female 39 Low - PINF [facility] Glucose [Mass/Vol] 210 mg/dL High 70 - 179 mg/dL [facility] Osmolality Calc [Osmolality] 299 [facility] Potassium [Moles/Vol] 3.7 mmol/L 3.5 - 5.0 mmol/L [facility] Sodium [Moles/Vol] 139 mmol/L 135 - 145 mmol/L [facility] Urea nitrogen [Mass/Vol] 18 mg/dL 7 - 25 mg/dL [facility] Urea nitrogen/Creatinine [Mass ratio] 13 mg/mg [facility] Anion gap [Moles/Vol] 16 mmol/L Normal 7-17 [facility] Comment on above: Performed By: #### H [facility] #### [facility] (DEFAULT) [address] [address] Chloride [Moles/Vol] 105 mmol/L Normal 98-108 [facility] Comment on above: Performed By: #### H [facility] #### [facility] (DEFAULT) [address] [place] [address] CO2 [Moles/Vol] 22 mmol/L Normal 21-31 [facility] Comment on above: Performed By: #### H [facility] #### [facility] (DEFAULT) [address] [place] [address] Creatinine [Mass/Vol] 1.37 mg/dL High 0.50-1.20 [facility] Comment on above: Performed By: #### H [facility] #### [facility] (DEFAULT) [address] [address] GFR/1.73 sq M.predicted among non-blacks MDRD (S/P/Bld) [Vol rate/Area] 39 mL/min/{1.73_m2} Low >=60 [facility] Comment on above: Result Comment: Repo rted eGFR is based on the CKD-EPI 2020 equation using creatinine, age, and sex. Performed By: #### H EMOGC #### [facility] (DEFAULT) [address] [place] [address] Glucose [Mass/Vol] 210 mg/dL High Nonfastin -179 mg/dL; Fastin-99 [facility] Comment on above: Performed By: #### H EMOGC #### [facility] (DEFAULT) [address] [place] [address] Osmolality [Osmolality] 299 mosm/kg Normal 278-305 [facility] Comment on above: Performed By: #### H EMOGC #### [facility] (DEFAULT) [address] [place] [address] Potassium [Moles/Vol] 3.7 mmol/L Normal 3.5-5.0 [facility] Comment on above: Performed By: #### H EMO #### [facility] (DEFAULT) [address] [place] [address] Sodium [Moles/Vol] 139 mmol/L Normal 135-145 [facility] Comment on above: Performed By: #### H EMO #### [facility] (DEFAULT) [address] [place] [address] Urea nitrogen [Mass/Vol] 18 mg/dL Normal 7-25 [facility] Comment on above: Performed By: #### H EMOGC #### [facility] (DEFAULT) [address] [place] [address] Urea nitrogen/Creatinine [Mass ratio] 13 mg/mg Normal [facility] Comment on above: Performed By: #### H EMOGC #### [facility] (DEFAULT) [address] [place] [address] ABDOMEN/PELVIS WITH CONTR AST VASCULAR TRAUMAon [...] grade: None. Kidney trauma grade: None. Normal [facility] CT Abdomen and Pelvis W cont rast Seth 08-02-2024 RADIOLOGY RADIOLOGY [facility] CT Abdomen and Pelvis W cont rast IVOrdered By: Edson Head on 08-02-2024 [facility] Work Phone: CT Cervical spine WO contras ton 08-02-2024 Radiology Study observation (narrative) [facility] CT Orbit WO contraston 08-02 Radiology Study observation (narrative) [facility] Carbon dioxide, total [Moles /volume] in Central venous bloodOrdered By: Pieter Morgan on 08-02-2024 CO2 [Moles/Vol] 22.0 mmol/L 21.0-32.0 [facility] Chloride assayOrdered By: Racheal Morgan on 08-02-2024 Chloride [Moles/Vol] 98 mmol/L 98-108 [facility] Emergency Department Summary on 08-02-2024 Emergency Department Summary [facility] Medical Records Department [address] [place] [address] Emergency Department Summary 08/02/24 MR#: [id number] Acct: [id number] Name: LINDSAY ACUNA Rep #: [id number] : 1945 78 From: Pieter Morgan MD [...] the EMR. states they returned home from [facility] about 1.5-2 weeks ago, and they both had colds. He is better, but she is "on round 2." [facility] Medical History Paroxysmal atrial fibrillation with [...] normal respir (more content not included)... Normal [facility] Eosinophil percentageOrdered By: Pieter Morgan on 08-02-2024 Eosinophils/100 WBC (Bld) 1.0 % 0-5 [facility] Erythrocyte distribution wid th ratioOrdered By: Pieter Morgan on 08-02-2024 Erythrocyte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 Department 10/10/23 7:30 AM DAVID DUPREE [facility] During your visit today, we recorded the following information about you: Temperature Pulse Respiration Blood pressure 97.5 degrees 58/minute 18/minute 128/82 Weight 82.1 kg David Dupree, FIRE MANAGER.MULTIFOCAL BUTTON GRINDER 10/10/2023 8:11 AM Signed Subjective HPI Nontoxic-appearing [...] mouth daily before breakfast. blood sugar diagnostic (Buysight ULTRA TEST) test strip Test Blood Sugar [...] 1 tablet by mouth once daily. lancets (ServioTOUCH DELICA PLUS LANCET) 30 gauge Test blood sugars 1 time daily. Dx: Type 2 DM Controlled E11.9. Insulin: no Chlorhexidine Gluconate (PERIDEX) 0.12 % solution Use 15 mL as instructed twice daily. Rinse around mouth for 30 seconds then expectorate blood sugar diagnostic (Atlas CloudUCH ULTRA TEST STRIP) test strip Use to [...] Rate and (more content not included)... Normal [facility] CNOVon 09-29-2023 CNOV Office Visit (UCWSTR ) LINDSAY ACUNA ([id number]) 1945 F Date Time Provider Department 09/29/23 2:15 PM RADHA LEVINE [facility] During your visit today, we recorded the following information about you: Temperature Pulse Respiration Blood pressure 97.8 degrees 54/minute 18/minute 148/91 Weight 84 kg Radha Levine APRN.MULTIFOCAL BUTTON GRINDER 09/29/2023 6:12 PM Signed This note was created using Small Demonsriter. Subjective Lindsay Acuna is a 77 year old female. 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 Denies fever or chills Denies malaise or fatigue Denies new lotions, soaps, or medicines States that she was working out in the garden the same day the rash erupted. The history is provided by the patient. No communications tower technician was used. Rash This is a new [...] state. Hematologi (more content not included)... Normal [facility] Glucose,Bedsideon 04-16-2019 Glucose [Mass/Vol] 161 mg/dL High 70-100 [facility] Comment on above: Result Comment: Test performed by glucose meter. Results may be 10%-15% lower than serum/plasma values. (CLIA ID [id number]) Performed By: #### B GLU #### [address] [address] Surgical Pathologyon 019 Surgical Pathology [id number] [facility] PATHOLOGY AND LABORATORY MEDICINE [address] [place] [id number] FINAL SURGICAL PATHOLOGY REPORT ___ NAME: LINDSAY ACUNA : 1945 73 Y F BILLING NO.: [id number] LOCATION: 1XEO PROCEDURE 01/09/2019 DATE: SURGEON: SANTIAGO [...] characteristics determined by the clinical laboratories of [facility]. They have not been cleared by [...] negativity on decalcified specimens. Professional Performing Location: [address] [address]. DEPARTMENT OF PATHOLOGY AND LABORATORY MEDICINE [place], [place] [address] Normal [facility] .Auto Diffon 08-22-2018 Ammonia mass conc (P) 1.10 10 3/mcL High 0.15-1.00 [facility] ([place]) Comment on above: Performed By: #### Roby VALVERDE, GFR #### [address] [address] Basophils #/vol (Bld) 0.00 10 3/mcL Normal 0.00-0.19 [facility] ([place]) Comment on above: Performed By: #### oRby VALVERDE, GFR #### [address] [address] Basophils/100 WBC (Bld) 0.3 % Normal 0.0-2.5 A Replaced by [facility] ([place]) Comment on above: Performed By: #### Roby VALVERDE, GFR #### [address] [address] Eosinophils #/vol (Bld) 0.00 10 3/mcL Normal 0.00-0.40 [facility] ([place]) Comment on above: Performed By: #### Roby MP, GFR #### [address] [address] Eosinophils/100 WBC (Bld) 0.2 % Normal 0.0-7.0 [facility] ([place]) Comment on above: Performed By: #### Roby MP, GFR #### [address] [address] Lymphocytes #/vol (Bld) 2.20 10 3/mcL Normal 0.77-3.85 [facility] ([place]) Comment on above: Performed By: #### B MP, GFR #### [address] [address] Lymphocytes/100 WBC (Bld) 20.5 % Normal 10.0-50.0 [facility] ([place]) Comment on above: Performed By: #### B MP, GFR #### [address] [address] Monocytes/100 WBC (Bld) 10.5 % Normal 1.7-13.0 A Replaced by [facility] ([place]) Comment on above: Performed By: #### B MP, GFR #### [address] [address] Neutrophils/100 WBC (Bld) 68.5 % Normal 37.0-80.0 [facility] ([place]) Comment on above: Performed By: #### B MP, GFR #### [address] [address] .GFRon 08-22-2018 GFR Non- 33 ml/min/1.73sqm Normal [facility] ([place]) Comment on above: Result Comment: GFR Population [...] Performed By: #### B MP, GFR #### [address] [address] #### CBC, ADIFF, ANEU #### [place] [address] [address] GFR 40 ml/min/1.73sqm Normal [facility] ([place]) Comment on above: Result Comment: GFR Population [...] Performed By: #### B MP, GFR #### [place] [address] #### CBC, ADIFF, ANEU #### [address] [address] .NEUABSon 08-22-2018 Neutrophils #/vol (Bld) 7.40 10 3/mcL High 2.85-6.16 [facility] ([place]) Comment on above: Performed By: #### Roby MP, GFR #### [address] [address] BMPon 08-22-2018 Calcium mass conc 8.3 mg/dL Low 8.4-10.2 [facility] ([place]) Comment on above: Performed By: #### Roby MP, GFR #### [place] [address] #### CBC, ADIFF, ANEU #### [address] [address] Chloride molar conc 104 mmol/L Normal 98-107 [facility] ([place]) Comment on above: Performed By: #### B MP, GFR #### [place] [address] #### CBC, ADIFF, ANEU #### [address] [address] CO2 molar conc 25 mmol/L Normal 23-31 [facility] ([place]) Comment on above: Performed By: #### B MP, GFR #### [address] [address] #### CBC, ADIFF, ANEU #### [address] [address] Creatinine mass conc 1.53 mg/dL High 0.55-1.02 [facility] ([place]) Comment on above: Performed By: #### B MP, GFR #### [place] [address] #### CBC, ADIFF, ANEU #### [address] [address] Electrolyte Balance 10.0 mEq/L Normal [facility] ([place]) Comment on above: Performed By: #### B MP, GFR #### [place] [address] #### CBC, ADIFF, ANEU #### [address] [address] Glucose mass conc 149 mg/dL High 83-110 [facility] ([place]) Comment on above: Performed By: #### B MP, GFR #### [place] [address] #### CBC, ADIFF, ANEU #### [address] [address] Potassium molar conc 4.3 mmol/L Normal 3.5-5.1 [facility] ([place]) Comment on above: Performed By: #### B MP, GFR #### [place] [address] #### CBC, ADIFF, ANEU #### [address] [address] Sodium molar conc 139 mmol/L Normal 136-145 [facility] ([place]) Comment on above: Performed By: #### B MP, GFR #### [place] [id number] #### CBC, ADIFF, ANEU #### [address] [address] Urea nitrogen mass conc 32 mg/dL High 7-18 A Replaced by [facility] ([place]) Comment on above: Performed By: #### B MP, GFR #### [address] [address] #### CBC, ADIFF, ANEU #### [address] [address] Urea nitrogen/Creatinine mass ratio 21 ratio Normal 7-27 [facility] ([place]) Comment on above: Performed By: #### B MP, GFR #### [place] [address] #### CBC, ADIFF, ANEU #### [address] [address] CBCon 08-22-2018 Erythrocyte distribution width Ratio (RBC) 12.6 % Normal 11.5-14.5 [facility] ([place]) Comment on above: Performed By: #### B MP, GFR #### [place] [address] Hematocrit Volume Fraction (Bld) 27.5 % Low 37.0-47.0 [facility] ([place]) Comment on above: Performed By: #### B MP, GFR #### [place] [address] Hemoglobin mass conc (Bld) 9.2 G/dL Low 12.0-16.0 [facility] ([place]) Comment on above: Performed By: #### B MP, GFR #### [place] [address] MCH Entitic mass (RBC) 30.1 pg Normal 27.0-31.2 [facility] ([place]) Comment on above: Performed By: #### B MP, GFR #### [place] [address] MCHC mass conc (RBC) 33.5 G/dL Normal 33.0-37.0 [facility] ([place]) Comment on above: Performed By: #### B MP, GFR #### [place] [address] MCV Entitic volume (RBC) 89.8 fL Normal 80.0-94.0 [facility] ([place]) Comment on above: Performed By: #### B MP, GFR #### [address] [address] Platelet mean volume Entitic volume (Bld) 9.3 fL Normal 7.4-10.4 [facility] ([place]) Comment on above: Performed By: #### B MP, GFR #### [address] [address] Platelets #/vol (Bld) 224 10 3/mcL Normal 130-400 A Replaced by [facility] ([place]) Comment on above: Performed By: #### B MP, GFR #### [address] [address] RBC #/vol (Bld) 3.06 10 6/mcL Low 4.20-5.40 [facility] ([place]) Comment on above: Performed By: #### B MP, GFR #### [address] [address] WBC #/vol (Bld) 10.80 10 3/mcL Normal 4.60-10.80 [facility] ([place]) Comment on above: Performed By: #### B MP, GFR #### [place] [address] XR KNEE 1 OR 2 VIEWS RIGHTon [...] Date: 08/21/2018 9:55:37 AM Normal [facility] ([place]) CT KNEE W/O CONTRAST RIGHTon 08-09-2018 CT [...] Date: 08/09/2018 5:04:12 PM Normal [facility] ([place]) .Auto Diffon 08-06-2018 Ammonia mass conc (P) 0.80 10 3/mcL Normal 0.15-1.00 [facility] ([place]) Comment on above: Performed By: #### C DORY SMITH ANEU #### [place] [address] #### A1C #### [address] [address] Basophils #/vol (Bld) 0.10 10 3/mcL Normal 0.00-0.19 [facility] ([place]) Comment on above: Performed By: #### C DORY SMITH ANEU #### [place] [address] #### A1C #### [address] [address] Basophils/100 WBC (Bld) 0.6 % Normal 0.0-2.5 A Replaced by [facility] ([place]) Comment on above: Performed By: #### C DORY SMITH ANEU #### [place] [address] #### A1C #### [address] [address] Eosinophils #/vol (Bld) 0.20 10 3/mcL Normal 0.00-0.40 [facility] ([place]) Comment on above: Performed By: #### C BC, ADIFF, ANEU #### [address] [address] #### A1C #### [address] [address] Eosinophils/100 WBC (Bld) 1.7 % Normal 0.0-7.0 [facility] ([place]) Comment on above: Performed By: #### C BC, ADIFF, ANEU #### [address] [address] #### A1C #### [address] [address] Lymphocytes #/vol (Bld) 1.90 10 3/mcL Normal 0.77-3.85 [facility] ([place]) Comment on above: Performed By: #### C BC, ADIFF, ANEU #### [address] [address] #### A1C #### [address] [address] Lymphocytes/100 WBC (Bld) 20.8 % Normal 10.0-50.0 [facility] ([place]) Comment on above: Performed By: #### C BC, ADIFF, ANEU #### [address] [address] #### A1C #### [address] [address] Monocytes/100 WBC (Bld) 9.3 % Normal 1.7-13.0 A Replaced by [facility] ([place]) Comment on above: Performed By: #### C BC, ADIFF, ANEU #### [address] [address] #### A1C #### [address] [address] Neutrophils/100 WBC (Bld) 67.6 % Normal 37.0-80.0 [facility] ([place]) Comment on above: Performed By: #### C BC, ADIFF, ANEU #### [address] [address] #### A1C #### [address] [address] .GFRon 08-06-2018 GFR 51 ml/min/1.73sqm Normal [facility] ([place]) Comment on above: Result Comment: GFR [...] Performed By: #### B MP, GFR #### [place] [address] GFR Non- 42 ml/min/1.73sqm Normal [facility] ([place]) Comment on above: Result Comment: GFR [...] Performed By: #### B MP, GFR #### [address] [address] .NEUABSon 08-06-2018 Neutrophils #/vol (Bld) 6.20 10 3/mcL High 2.85-6.16 [facility] ([place]) Comment on above: Performed By: #### C BC, ADIFF, ANEU #### [address] [address] #### A1C #### [address] [address] A1Con 08-06-2018 Hemoglobin A1c/Hemoglobin.total mass fraction (Bld) 7.9 % High 4.5-6.2 [facility] ([place]) Comment on above: Performed By: #### C BC, ADIFF, ANEU #### [address] [address] #### A1C #### [address] [address] BMPon 08-06-2018 Calcium mass conc 9.2 mg/dL Normal 8.4-10.2 [facility] ([place]) Comment on above: Performed By: #### B MP, GFR #### [place] [address] Chloride molar conc 105 mmol/L Normal 98-107 [facility] ([place]) Comment on above: Performed By: #### B MP, GFR #### [place] [address] CO2 molar conc 27 mmol/L Normal 23-31 [facility] ([place]) Comment on above: Performed By: #### B MP, GFR #### [place] [address] Creatinine mass conc 1.25 mg/dL High 0.55-1.02 [facility] ([place]) Comment on above: Performed By: #### B MP, GFR #### [place] [address] Electrolyte Balance 11.0 mEq/L Normal [facility] ([place]) Comment on above: Performed By: #### B MP, GFR #### [place] [address] Glucose mass conc 70 mg/dL Low 83-110 [facility] ([place]) Comment on above: Performed By: #### B MP, GFR #### [place] [address] Potassium molar conc 5.0 mmol/L Normal 3.5-5.1 [facility] ([place]) Comment on above: Performed By: #### B MP, GFR #### [place] [address] Sodium molar conc 143 mmol/L Normal 136-145 [facility] ([place]) Comment on above: Performed By: #### B MP, GFR #### [place] [address] Urea nitrogen mass conc 26 mg/dL High 7-18 A Replaced by [facility] ([place]) Comment on above: Performed By: #### B MP, GFR #### [place] [address] Urea nitrogen/Creatinine mass ratio 21 ratio Normal 7-27 [facility] ([place]) Comment on above: Performed By: #### B MP, GFR #### [place] [address] CBCon 08-06-2018 Erythrocyte distribution width Ratio (RBC) 12.2 % Normal 11.5-14.5 [facility] ([place]) Comment on above: Performed By: #### C DORY SMITH ANEU #### [address] [address] #### A1C #### [place] [address] Hematocrit Volume Fraction (Bld) 34.6 % Low 37.0-47.0 [facility] ([place]) Comment on above: Performed By: #### C DORY SMITH ANEU #### [place] [id number] #### A1C #### [place] [address] Hemoglobin mass conc (Bld) 11.7 G/dL Low 12.0-16.0 [facility] ([place]) Comment on above: Performed By: #### C BCDORY, ANEU #### [address] [address] #### A1C #### [place] [address] MCH Entitic mass (RBC) 30.6 pg Normal 27.0-31.2 [facility] ([place]) Comment on above: Performed By: #### C BC ADIFF, ANEU #### [address] [address] #### A1C #### [address] [address] MCHC mass conc (RBC) 33.7 G/dL Normal 33.0-37.0 [facility] ([place]) Comment on above: Performed By: #### C BC, ADIFF, ANEU #### [address] [address] #### A1C #### [address] [address] MCV Entitic volume (RBC) 90.9 fL Normal 80.0-94.0 [facility] ([place]) Comment on above: Performed By: #### C BCDORY, ANEU #### [place] [address] #### A1C #### [address] [address] Platelet mean volume Entitic volume (Bld) 8.8 fL Normal 7.4-10.4 [facility] ([place]) Comment on above: Performed By: #### C BC, KEITHIFF, ANEU #### [address] [address] #### A1C #### [address] [address] Platelets #/vol (Bld) 355 10 3/mcL Normal 130-400 A Replaced by [facility] ([place]) Comment on above: Performed By: #### C BC, ADIFF, ANEU #### [address] [address] #### A1C #### [address] [address] RBC #/vol (Bld) 3.81 10 6/mcL Low 4.20-5.40 [facility] ([place]) Comment on above: Performed By: #### C BC, ADIFF, ANEU #### [place] [address] [place], [place] [address] #### A1C #### [address] [address] WBC #/vol (Bld) 9.20 10 3/mcL Normal 4.60-10.80 [facility] ([place]) Comment on above: Performed By: #### C BC, ADIFF, ANEU #### [address] [address] #### A1C #### [address] [address] Vital Signs Date Time Vital Sign Value Performing Clinician Facility 10-02-2024 09:21-0400 Body height 167.[address] Kameron Caruso MD Work Phone: [facility] 10-02-2024 09:21-0400 Diastolic blood pressure 71 mm[Hg] Dr. Kameron Caruso MD Work Phone: [facility] 10-02-2024 09:21-0400 Heart rate 77 /min Dr. Kameron Caruso MD Work Phone: [facility] 10-02-2024 09:21-0400 Respiratory rate 16 /min Dr. Kameron Caruso MD Work Phone: [facility] 10-02-2024 09:21-0400 Systolic blood pressure 111 mm[Hg] Dr. Kameron Caruso MD Work Phone: [facility] 09-09-2024 09:02-0400 Heart rate 100 /min SILVINO HA DO Tyler Grant 09-09-2024 07:58-0400 Blood Pressure Cuff Size SILVINO DAE DO [facility] 09-09-2024 07:58-0400 Blood Pressure Location SILVINO CIDATZLE DO [facility] 09-09-2024 07:58-0400 Blood Pressure Method SILVINO CIDATZSHITAL DO [facility] 09-09-2024 07:58-0400 Body temperature 96.8 [degF] SILVINO CIDATZLE DO Tyler Grant 09-09-2024 07:58-0400 Diastolic Blood Pressure Non-Invasive 78 mm[Hg] SILVINO CIDATZLE DO Tyler Grant 09-09-2024 07:58-0400 Heart rate 110 /min SILVINO PALAKATZLE DO Tyler Grant 09-09-2024 07:58-0400 Reason For Taking VItal Signs SILVINO PALAKATZLE DO Tyler Grant 09-09-2024 07:58-0400 Respiratory rate 16 /min SILVINO CIDATZLE DO Tyler Grant 09-09-2024 07:58-0400 Systolic Blood Pressure Non-Invasive 122 mm[Hg] SILVINO PALAKATZLE DO Tyler Grant 09-09-2024 02:45-0400 Body temperature 97.7 [degF] SILVINO CIDATZLE DO Tyler Grant 09-09-2024 02:45-0400 Diastolic Blood Pressure Non-Invasive 60 mm[Hg] SILVINO CIDATZLE DO Tyler Grant 09-09-2024 02:45-0400 Heart rate 92 /min SILVINO PALAKATZLE DO Tyler Grant 09-09-2024 02:45-0400 Respiratory rate 16 /min SILVINO CIDATZLE DO Tyler Grant 09-09-2024 02:45-0400 Systolic Blood Pressure Non-Invasive 108 mm[Hg] SILVINO CIDATZLE DO Tyler Grant 09-08-2024 22:28-0400 Blood Pressure Cuff Size SILVINO PALAKATZLE DO Tyler [facility] 09-08-2024 22:28-0400 Blood Pressure Location SILVINO HA DO Tyler [facility] 09-08-2024 22:28-0400 Blood Pressure Method SILVINO HA DO Tyler Tariqwn 09-08-2024 22:28-0400 Body temperature 97.88 [degF] SILVINO HA DO Tyler Tariqwn 09-08-2024 22:28-0400 Diastolic Blood Pressure Non-Invasive 54 mm[Hg] SILVINO HA DO Tyler Tariqwn 09-08-2024 22:28-0400 Heart rate 92 /min SILVINO HA DO Tyler Warnern 09-08-2024 22:28-0400 Reason For Taking VItal Signs SILVINO HA DO Tyler Tariqwn 09-08-2024 22:28-0400 Respiratory rate 16 /min SILVINO HA DO Tyler Tariqwn 09-08-2024 22:28-0400 Systolic Blood Pressure Non-Invasive 118 mm[Hg] SILVINO HA DO Tyler Tariqwn 09-08-2024 18:21-0400 Heart rate 90 /min SILVINO DAE DO Tyler [facility] 09-08-2024 09:08-0400 Blood Pressure Cuff Size SILVINO CIDATZSHITAL DO Tyler Tariqwn 09-08-2024 09:08-0400 Blood Pressure Location SILVINO DIORSHITAL DO Tyler Tariqwn 09-08-2024 09:08-0400 Blood Pressure Method SILVINO RADERSHITAL DO Tyler Tariqwn 09-08-2024 09:08-0400 Heart rate 114 /min SILVINO CIDATZLE DO Tyler Grant 09-08-2024 09:08-0400 Reason For Taking VItal Signs SILVINO CIDATZLE DO Tyler Grant 09-04-2024 10:54-0400 Body temperature 96.62 [degF] SILVINO CIDATZLE DO Tyler Grant 09-03-2024 00:26-0400 Body temperature 97.34 [degF] SILVINO CIDATZLE DO Tyler Grant 08-30-2024 22:54-0400 Body temperature 98.06 [degF] SILVINO CIDATZLE DO [facility] 08-26-2024 10:36-0400 Body weight 76 kg SILVINO CIDATZLE DO Tyler Grant 08-19-2024 06:00-0400 Body weight 75.3 kg SILVINO CIDATZLE DO [facility] 08-15-2024 14:27-0400 Body height 170.2 cm SILVINO CIDATZLE DO Tyler Grant 08-15-2024 14:27-0400 Body weight 75.4 kg SILVINO CIDATZLE DO [facility] 08-15-2024 14:27-0400 Body weight 26.03 kg/m2 SILVINO CIDATZLE DO [facility] 08-15-2024 09:02-0400 Diastolic blood pressure 69 mm[Hg] Prema Ramos MD Work Phone: [facility] 08-15-2024 09:02-0400 Systolic blood pressure 128 mm[Hg] Prema Ramos MD Work Phone: 2(678)812-031510 [place] [address] 08-15-2024 07:28-0400 Heart rate 86 /min Prema Ramos MD Work Phone: 6(024)227-286610 [place] [address] 08-15-2024 07:18-0400 Body temperature 97.3 [degF] Prema Ramos MD Work Phone: 4(073)794-471910 [place] [address] 08-15-2024 07:18-0400 Respiratory rate 23 /min Prema Ramos MD Work Phone: 4(854)076-336710 [place] [address] 08-15-2024 07:18-0400 SaO2% (BldA) [Mass fraction] 95 % Prema Ramos MD Work Phone: 4(391)243-847210 [place] [address] 08-05-2024 08:00-0400 Body height 170.2 cm Prema Ramos MD Work Phone: 8(206)291-281210 [place] [address] 08-05-2024 08:00-0400 Body mass index (BMI) [Ratio] 26.94 kg/m2 Prema Ramos MD Work Phone: 2(249)457-115810 [place] [address] 08-05-2024 08:00-0400 Body weight 78.02 kg Prema Ramos MD Work Phone: 4(221)[phone] [place] [address] 08-02-2024 13:52-0400 Body temperature 98 [degF] Dr. Kameron Caruso MD Work Phone: [facility] 08-02-2024 13:52-0400 Diastolic blood pressure 91 mm[Hg] Dr. Kameron Caruso MD Work Phone: [facility] 08-02-2024 13:52-0400 Heart rate 109 /min Dr. Kameron Caruso MD Work Phone: [facility] 08-02-2024 13:52-0400 Respiratory rate 16 /min Dr. Kameron Caruso MD Work Phone: [facility] 08-02-2024 13:52-0400 SaO2% (BldA) [Mass fraction] 98 % Dr. Kameron Caruso MD Work Phone: [facility] 08-02-2024 13:52-0400 Systolic blood pressure 153 mm[Hg] Dr. Kameron Caruso MD Work Phone: [facility] 08-02-2024 12:46-0400 Body height 167.[address] Kameron Caruso MD Work Phone: [facility] 08-02-2024 12:46-0400 Body mass index (BMI) [Ratio] 26.6 kg/m2 Dr. Kameron Caruso MD Work Phone: [facility] 08-02-2024 12:46-0400 Body weight [address] Kameron Caruso MD Work Phone: [facility] 06-26-2024 09:39-0500 Body mass index (BMI) [Ratio] 27.25 kg/m2 Emma Sotomayor FIRE MANAGER.[employer] Work Phone: [facility] 06-26-2024 09:39-0500 Body weight 78.93 kg Emma Sotomayor FIRE MANAGER.[employer] Work Phone: [facility] 06-26-2024 09:39-0500 Diastolic blood pressure 88 mm[Hg] Emma Sotomayor FIRE MANAGER.[employer] Work Phone: [facility] 06-26-2024 09:39-0500 Heart rate 93 /min Emma Sotomayor FIRE MANAGER.[employer] Work Phone: [facility] 06-26-2024 09:39-0500 Respiratory rate 16 /min Emma Sotomayor FIRE MANAGER.[employer] Work Phone: [facility] 06-26-2024 09:39-0500 SaO2% (BldA) [Mass fraction] 98 % Emma Sotomayor FIRE MANAGER.[employer] Work Phone: [facility] 06-26-2024 09:39-0500 Systolic blood pressure 144 mm[Hg] Emma Sotomayor FIRE MANAGER.[employer] Work Phone: [facility] 05-31-2024 08:56-0500 Diastolic blood pressure 84 mm[Hg] Kameron Caruso MD Work Phone: [facility] 05-31-2024 08:56-0500 Systolic blood pressure 136 mm[Hg] Kameron Caruso MD Work Phone: [facility] 05-31-2024 08:47-0500 Body mass index (BMI) [Ratio] 27.28 kg/m2 Kameron Caruso MD Work Phone: [facility] 05-31-2024 08:47-0500 Body weight 79 kg Kameron Caruso MD Work Phone: [facility] 05-31-2024 08:47-0500 Heart rate 100 /min Kameron Caruso MD Work Phone: [facility] 05-31-2024 08:47-0500 Respiratory rate 18 /min Kameron Caruso MD Work Phone: [facility] 11-28-2023 09:42-0400 Diastolic blood pressure 78 mm[Hg] Kameron Caruso MD Work Phone: [facility] 11-28-2023 09:42-0400 Systolic blood pressure 142 mm[Hg] Kameron Caruso MD Work Phone: [facility] 11-28-2023 09:41-0400 Body mass index (BMI) [Ratio] 27.82 kg/m2 Kameron Caruso MD Work Phone: [facility] 11-28-2023 09:41-0400 Body weight 80.56 kg Kameron Caruso MD Work Phone: [facility] 11-28-2023 09:41-0400 Heart rate 68 /min Kameron Caruso MD Work Phone: [facility] 11-28-2023 09:41-0400 Respiratory rate 18 /min Kameron Caruso MD Work Phone: [facility] 10-10-2023 07:31-0400 Body mass index (BMI) [Ratio] 28.35 kg/m2 David Dupree APRN.CNP Work Phone: [facility] 10-10-2023 07:31-0400 Body temperature 97.5 [degF] [facility] FIRE MANAGER.[employer] Work Phone: [facility] 10-10-2023 07:31-0400 Body weight 82.1 kg [facility] FIRE MANAGER.[employer] Work Phone: [facility] 10-10-2023 07:31-0400 Diastolic blood pressure 82 mm[Hg] [facility] FIRE MANAGER.[employer] Work Phone: [facility] 10-10-2023 07:31-0400 Heart rate 58 /min [facility] FIRE MANAGER.[employer] Work Phone: [facility] 10-10-2023 07:31-0400 Respiratory rate 18 /min [facility] FIRE MANAGER.[employer] Work Phone: [facility] 10-10-2023 07:31-0400 SaO2% (BldA) [Mass fraction] 100 % [facility] FIRE MANAGER.[employer] Work Phone: [facility] 10-10-2023 07:31-0400 Systolic blood pressure 128 mm[Hg] [facility] FIRE MANAGER.[employer] Work Phone: [facility] 09-29-2023 14:14-0400 Body mass index (BMI) [Ratio] 29 kg/m2 Radha Levine FIRE MANAGER.[employer] Work Phone: [facility] 09-29-2023 14:14-0400 Body temperature 97.81 [degF] Radha Levine FIRE MANAGER.[employer] Work Phone: [facility] 09-29-2023 14:14-0400 Body weight 84 kg Radha Levine FIRE MANAGER.[employer] Work Phone: [facility] 09-29-2023 14:14-0400 Diastolic blood pressure 91 mm[Hg] Radha Levine FIRE MANAGER.[employer] Work Phone: [facility] 09-29-2023 14:14-0400 Heart rate 54 /min Radha Levine FIRE MANAGER.[employer] Work Phone: [facility] 09-29-2023 14:14-0400 Respiratory rate 18 /min Radha Levine FIRE MANAGER.[employer] Work Phone: [facility] 09-29-2023 14:14-0400 SaO2% (BldA) [Mass fraction] 99 % Radha Levine FIRE MANAGER.[employer] Work Phone: [facility] 09-29-2023 14:14-0400 Systolic blood pressure 148 mm[Hg] Radha Levine FIRE MANAGER.[employer] Work Phone: [facility] 05-27-2022 09:42-0500 Body weight 83.83 kg Kameron Caruso MD Work Phone: [facility] 05-27-2022 09:42-0500 Diastolic blood pressure 84 mm[Hg] Kameron Caruso MD Work Phone: [facility] 05-27-2022 09:42-0500 Heart rate 68 /min Kameron Caruso MD Work Phone: [facility] 05-27-2022 09:42-0500 Respiratory rate 16 /min Kameron Caruso MD Work Phone: [facility] 05-27-2022 09:42-0500 Systolic blood pressure 136 mm[Hg] Kameron Caruso MD Work Phone: [facility] 03-02-2022 10:52-0400 Diastolic blood pressure 76 mm[Hg] Emma Tannhof FIRE MANAGER.[employer] Work Phone: [facility] 03-02-2022 10:52-0400 Heart rate 92 /min Emma Tannhof FIRE MANAGER.[employer]AL [employer] Work Phone: [facility] 03-02-2022 10:52-0400 Respiratory rate 18 /min Emma Tannhof FIRE MANAGER.[employer]AL [employer]ER Work Phone: [facility] 03-02-2022 10:52-0400 Systolic blood pressure 140 mm[Hg] Emma Tannhof FIRE MANAGER.[employer]AL [employer] Work Phone: [facility] 11-23-2021 09:39-0400 Body weight 83.1 kg Kameron Caruso MD Work Phone: [facility] 11-23-2021 09:39-0400 Diastolic blood pressure 80 mm[Hg] Kameron Caruso MD Work Phone: [facility] 11-23-2021 09:39-0400 Heart rate 84 /min Kameron Caruso MD Work Phone: [facility] 11-23-2021 09:39-0400 Respiratory rate 16 /min Kameron Caruso MD Work Phone: [facility] 11-23-2021 09:39-0400 Systolic blood pressure 138 mm[Hg] Kameron Caruso MD Work Phone: [facility] 10-16-2019 10:09-0400 BP Diastolic 72 mm[Hg] [facility] [place] 10-16-2019 10:09-0400 BP Systolic 144 mm[Hg] [facility] , [place] 10-16-2019 10:09-0400 Pulse (Heart Rate) 62 /min [facility] [place] 10-16-2019 10:09-0400 Pulse Oximetry 98 % [facility] [employer] [facility] , [place] 10-16-2019 10:09-0400 Respiratory Rate 18 /min Santiago [facility] [facility] [place] 10-16-2019 09:15-0400 BMI (Body Mass Index) 29.44 kg/m2 Santiago [facility] [place] [place] 10-16-2019 09:15-0400 Body Temperature 97.81 [degF] [facility] [facility] [place] 10-16-2019 09:15-0400 Body weight 85.28 kg Santiago [facility] [employer] [facility] , [place] 10-16-2019 09:15-0400 Height 170.2 cm Santiago Jose [employer] , [place] 01-09-2019 12:06-0400 BP Diastolic 73 mm[Hg] Santiago [facility] [place] 01-09-2019 12:06-0400 BP Systolic 121 mm[Hg] [facility] [place] , [place] 01-09-2019 11:50-0400 Pulse (Heart Rate) 64 /min Santiago Miller [facility], [place] 01-09-2019 11:50-0400 Pulse Oximetry 100 % Santiago Miller [facility] [place] , [place] 01-09-2019 11:50-0400 Respiratory Rate 18 /min Santiago Miller [facility] [place] , [place] 01-09-2019 10:28-0400 BMI (Body Mass Index) 28.82 kg/m2 Santiago Miller [facility], [place] 01-09-2019 10:28-0400 Body weight 83.46 kg Santiago Miller [facility] , [place] 01-09-2019 10:28-0400 Height 170.2 cm Santiago Miller [facility] , [place] 01-09-2019 10:27-0400 Body Temperature 97.5 [degF] Santiago Miller [facility], [place] Encounters Encounter Date Encounter Type Care Provider Facility Start: 12-10-2024 ambulatory Efjean marieongbe Enricoe OLS Fa cility:[facility] Start: 12-03-2024 ambulatory Kameron Elderbrock Facilit y:[facility] Start: 11-26-2024 ambulatory Efewongbe Enricoe OLS Fa cility:[facility] Start: 11-26-2024 Registered Referred Safia Torres Start: 11-25-2024 ambulatory Kameron Elderbrock Facilit y:[facility] Start: 11-25-2024 Registered Referred Safia Torres Start: 11-19-2024 ambulatory Efjean marieongbe Enricoe OLS Fa cility:[facility] Start: 11-19-2024 Registered Referred Safia Torres Start: 11-12-2024 ambulatory Kameron Elderbrock Facilit y:[facility] Start: 11-12-2024 Registered Referred Safia Torres Start: 11-05-2024 ambulatory Efsherry Ruelas OLS Fa cility:[facility] Start: 11-05-2024 Registered Referred Safia Torres Start: 10-30-2024 End: 10-30-[address] Kameron Caruso MD Work Phone: [facility] Start: 10-30-2024 End: 10-30-2024 Patient encounter procedure [facility] Start: 10-29-2024 End: 10-29-[address] Safia Ruelas MD -[facility] Work Phone: Start: 10-29-2024 End: 10-29-[address] Kameron Caruso MD Work Phone: [facility] Start: 10-29-2024 Registered Referred Safia Torres Start: 10-23-2024 ambulatory Safia Ruelas OLS Fa cility:[facility] Start: 10-23-2024 Registered Referred Safia Torres Start: 10-22-2024 End: 10-22-2024 Patient encounter procedure Bret Snyder [facility] Work Phone: Start: 10-22-2024 End: 10-22-[address] Kameron Caruso MD Work Phone: [facility] Start: 10-22-2024 Registered Referred Safia Torres Start: 10-15-2024 ambulatory Safia Ruelas OLS Fa cility:[facility] Start: 10-15-2024 Registered Referred Safia Torres Start: 10-09-2024 End: 10-09-[address] Kameron Caruso MD Work Phone: [facility] Start: 10-09-2024 End: 10-09-2024 Patient encounter procedure Bret Snyder [facility] Work Phone: Start: 10-08-2024 ambulatory Safia Ruelas OLS Fa cility:[facility] Start: 10-08-2024 Registered Referred Safia Torres Start: 10-02-2024 End: 10-02-[address] Mj Benavides MD -[facility] Work Phone: Start: 10-02-2024 End: 10-02-[address] Kameron Caruso MD Work Phone: [facility] Work Phone: Start: 10-01-2024 ambulatory Efewongbe Oleghe OLS Fa cility:[facility] Start: 10-01-2024 Registered Referred Safia Torres Start: 09-29-2024 ambulatory Efewongbe Cheoghe OLS Fa cility:[facility] Start: 09-29-2024 Registered Referred Safia Torres Start: 09-24-2024 ambulatory Efewongbe Oleghe OLS Fa cility:[facility] Start: 09-24-2024 Registered Referred Safia Torres Start: 09-17-2024 ambulatory Efewongbe Oleghe OLS Fa cility:[facility] Start: 09-17-2024 Registered Referred Safia Torres Start: 09-11-2024 End: 09-11-2024 ambulatory Bret Snyder NP Facility:[facility] Start: 09-11-2024 End: 09-11-2024 Patient encounter procedure Bret Snyder ACUTE CARE NURSE-C -[facility] Work Phone: Start: 09-10-2024 End: 09-10-[address] Safia Ruelas MD -[facility] Work Phone: Start: 09-10-2024 End: 09-10-2024 ambulatory Efrandallbe Jessenia Facility:[facility] Start: 09-10-2024 Registered Referred Safia Torres Start: 08-30-2024 End: 08-30-2024 Telephone encounter Kameron Caruso MD Work Phone: [facility] Comment on above: Tyler [facility] baudilioi fawn verbal agree to follow Start: 08-15-2024 End: 09-09-2024 Evaluation and management of inpatient SILVINO HA DO Tyler Garcia Start: 08-09-2024 Evaluation and manag ement of inpatient KAMERON CARUSO Facility:[facility] Start: 08-06-2024 Evaluation and manag ement of inpatient [facility] Start: 08-02-2024 End: 08-02-2024 ambulatory [facility] Facility:[facility] Start: 08-02-2024 End: 08-15-2024 Evaluation and management [...] Kameron Caruso MD Work Phone: [facility] [place] Comment on above: medication not on cu rrent med list Start: 06-26-2024 End: 06-26-2024 Office outpatient visit 25 minutes Emma Sotomayor APRN.CNP Work Phone: [facility] [place] Comment on above: Atrial fibrillation, unspecified type (HCC) (Primary Dx); Hypothyroidism, unspecified type; Need for malaria prophylaxis Start: 06-26-2024 End: 06-26-2024 ambulatory EMMA SOTOMAYOR Facility:[facility] Start: 06-25-2024 ambulatory KAMERON CARUSO [facility] ity:[facility] Start: 06-24-2024 End: 06-24-2024 Telephone encounter Kameron Caruso MD Work Phone: [facility] [place] Comment on above: Patient Update Start: 06-11-2024 End: 06-11-2024 Telephone encounter Kameron Caruso MD Work Phone: [facility] [place] Comment on above: Results Start: 06-11-2024 End: 06-11-2024 ambulatory KAMERON CARUSO Facility:[facility] Start: 06-10-2024 End: 06-11-2024 Telephone encounter Kameron Caruso MD Work Phone: [facility] [place] Comment on above: Medication Problem Start: 05-31-2024 End: 05-31-2024 ambulatory KAMERON CARUSO Facility:[facility] Start: 05-31-2024 End: 05-31-2024 Patient encounter procedure Kameron Caruso MD Work Phone: [facility] [place] Comment on above: Essential hypertensi on, [...] Start: 05-23-2024 End: 05-23-2024 ambulatory KAMERON CARUSO Facility:[facility] Start: 11-28-2023 End: 11-28-2023 ambulatory KAMERON CARUSO Facility:[facility] Start: 11-28-2023 End: 11-28-2023 Patient encounter procedure Kameron Caruso MD Work Phone: [facility] [place] Comment on above: 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, unspecified CKD stage, 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 insulin use (HCC) (Primary Dx); Essential hypertension, benign; Chronic kidney disease, stage 3a (HCC); Hyperlipidemia, unspecified hyperlipidemia type; Hypothyroidism, unspecified type; Edema of left lower leg; Memory loss; Type 2 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, without long-term current use of insulin (HCC) Start: 11-27-2023 End: 11-27-2023 ambulatory KAMERON DAMIANPECONIC Facility:[facility] Start: 10-10-2023 End: 10-10-2023 ambulatory [facility] Facility:[facility] Start: 10-10-2023 End: 10-10-2023 Office outpatient visit 25 minutes David Dupree APRN.[employer]OCAL BUTTON GR[employer]ER Work Phone: [facility] Comment on above: Rash (Primary Dx) Start: 09-29-2023 End: 09-29-2023 ambulatory KAMERON DAMIANPECONIC Facility:[facility] Start: 09-29-2023 End: 09-29-2023 Patient encounter procedure Radha Levine APRN.MULT[employer]OCAL BUTTON GRINDER Work Phone: [facility] Comment on above: Allergic contact lexi matitis due to plant (Primary Dx) Start: 09-19-2023 Refill Kameron nixon MD Work Phone: [facility] Comment on above: Refill Request Start: 04-08-2023 Telephone encounter Kameron bucio MD Work Phone: [address] [place] [address] Comment on above: Refill Request Start: 11-25-2022 Telephone encounter Kameron bucio MD Work Phone: [facility] Comment on above: Patient Question Start: 05-27-2022 End: 05-27-2022 Patient encounter procedure Kameron Caruso MD Work Phone: [facility] Comment on above: Essential hypertensi on, benign (Primary Dx); Hypothyroidism, unspecified type; Type 2 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, without long-term current use of insulin (HCC); Hyperlipidemia, unspecified hyperlipidemia type; Chronic kidney disease, stage 3a (HCC); Edema of left lower leg; Wellness examination Start: 05-27-2022 End: 05-27-2022 Patient encounter status Kameron Caruso MD Work Phone: [facility] Start: 04-11-2022 Refill Kameron nixon MD [facility] Phone[facility] Comment on above: Refill Request Start: 03-02-2022 ambulatory [facility] nixon [facility] Comment on above: Back Pain Start: 03-02-2022 End: 03-02-2022 Patient encounter procedure Emma Светлана WEATHERS.[employer]OCAL [employer]TON GR[employer]ER Work Phone: [facility] [place] Comment on above: Acute midline low ba ck pain without sciatica (Primary Dx) Start: 01-11-2022 Refill Mj ORTIZ RN.MULTIFOCAL BUTTON GRINDER Work Phone: [facility] Comment on above: Refill Request Start: 01-11-2022 Refill Kameron nixon MD Work Phone: [facility] Comment on above: Refill Request Start: 12-16-2021 Telephone encounter Kameron bucio MD Work Phone: [facility] Comment on above: Diabetic Testing Sup plies Start: 11-23-2021 End: 11-23-2021 Refill Kameron Caruso MD Work Phone: [facility] Comment on above: 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, unspecified CKD stage, 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 insulin use (HCC) (Primary Dx); Essential hypertension, benign; Hyperlipidemia, unspecified hyperlipidemia type; Stage 3b chronic kidney disease (HCC); Hypothyroidism, unspecified type; Memory loss Start: 10-14-2021 Refill Kameron nixon MD Work Phone: [facility] Comment on above: Refill Request Start: 09-27-2021 Telephone encounter Kameron bucio MD Work Phone: [facility] Comment on above: information requeste d/rxs needed Start: 09-13-2021 Telephone encounter Kameron bucio MD Work Phone: [facility] Comment on above: Patient Question; Me [...] Start: 08-15-2024 Assay of magnesium Abdoule scott Mccoy [employer] Work Phone: Start: 08-15-2024 Glucose measurement, blood Christos Voss MD Work Phone: Start: 08-14-2024 Glucose measurement, blood Christos Voss MD Work Phone: Start: 08-14-2024 Glucose measurement, blood Christos Voss MD Work Phone: Start: 08-14-2024 Glucose measurement, blood Christos Voss MD Work Phone: Start: 08-14-2024 Assay of magnesium Abdoule scott Hwang Nadine [employer] MANAGER[employer] Work Phone: Start: 08-13-2024 Glucose measurement, blood Christos Voss MD Work Phone: Start: 08-13-2024 Glucose measurement, blood Christos Voss MD Work Phone: Start: 08-13-2024 Glucose measurement, blood Christos Voss MD Work Phone: Start: 08-13-2024 Glucose measurement, blood Felicity Castellano MD Work Phone: Start: 08-13-2024 Assay of magnesium Abdoule scott Hwang Nadine FI[employer] MANAGER[employer] Work Phone: Start: 08-13-2024 Glucose measurement, blood Felicity Castellano MD Work Phone: Start: 08-12-2024 Glucose measurement, blood Felicity Castellano MD Work Phone: Start: 08-12-2024 Glucose measurement, blood Felicity Castellano MD Work Phone: Start: 08-12-2024 Glucose measurement, blood Felicity Castellano MD Work Phone: Start: 08-12-2024 Assay of magnesium Abdoule scott Schulteameh [employer] MANAGER[employer] Work Phone: Start: 08-12-2024 Glucose measurement, blood Felicity Castellano MD Work Phone: Start: 08-11-2024 Glucose measurement, blood Felicity Castellano MD Work Phone: Start: 08-11-2024 Glucose measurement, blood Felicity Castellano MD Work Phone: Start: 08-11-2024 Glucose measurement, blood Felicity Castellano MD Work Phone: Start: 08-11-2024 Assay of magnesium Nase rin Jaiden Nadine [employer] MA[employer]GER[employer] Work Phone: Start: 08-10-2024 Glucose measurement, blood Felicity Castellano MD Work Phone: Start: 08-10-2024 Glucose measurement, blood Felicity Castellano MD Work Phone: Start: 08-10-2024 End: 08-10-2024 Culture bacterial blood aerobic w/id isolates Radha Gr [employer] MANAGER[employer] Work Phone: Start: 08-10-2024 Glucose measurement, blood Felicity Castellano MD Work Phone: Start: 08-10-2024 End: 08-10-2024 Glucose measurement, blood Felicity Castellano MD Work Phone: Start: 08-10-2024 Glucose measurement, blood Felicity Castellano MD Work Phone: Start: 08-10-2024 Assay of magnesium Abdoule scott Hwang Nadine FI[employer] MANAGER[employer] Work Phone: Start: 08-10-2024 Glucose measurement, blood [...] Start: 08-09-2024 Assay of magnesium Nase rin Jaiden Nadine [employer] MANAGER[employer] Work Phone: Start: 08-09-2024 Glucose measurement, blood Felicity Catsellano MD Work Phone: Start: 08-08-2024 Glucose measurement, blood Felicity Castellano MD Work Phone: Start: 08-08-2024 Culture bct isol&prs mptv id isolate ea urine Bella Cardenas [employer] MA[employer]GER[employer] Work Phone: Start: 08-08-2024 EXTRA MICRO Bellabg Hwang Ma rtforrest [employer] MANAGER[employer] Work Phone: Start: 08-08-2024 URINALYSIS REFLEX TO CULTURE Bella Cardenas [employer] MANAGER[employer] Work Phone: Start: 08-08-2024 Ct head/brain w/o co ntrast material Bella Cardenas [employer] MANAGER[employer] Work Phone: Start: 08-08-2024 Glucose measurement, blood Felicity Castellano MD Work Phone: Start: 08-08-2024 End: 08-08-2024 Glucose measurement, blood Felicity Castellano MD Work Phone: Start: 08-08-2024 Assay of magnesium Abram Hwang Nadine FI[employer] MANAGER[employer] Work Phone: Start: 08-07-2024 Glucose measurement, blood Felicity Castellano MD Work Phone: Start: 08-07-2024 Glucose measurement, blood Felicity Castellano MD Work Phone: Start: 08-07-2024 Glucose measurement, blood Felicity Castellano MD Work Phone: Start: 08-07-2024 Glucose measurement, blood Fleicity Castellano MD Work Phone: Start: 08-06-2024 Glucose measurement, blood Felicity Castellano MD Work Phone: Start: 08-06-2024 Assay of magnesium Abram chavez Jaiden Nadine [employer] MANAGER[employer] Work Phone: Start: 08-06-2024 Glucose measurement, blood Felicity Castellano MD Work Phone: Start: 08-06-2024 Glucose measurement, blood Felicity Castellano MD Work Phone: Start: 08-06-2024 Radiologic exam swal low function contrast study Shanna Russ [employer] MANAGER[employer] Work Phone: Start: 08-06-2024 SPEECH MODIFIED KEAGAN UM SWALLOW Shanna Russ [employer] MANAGER[employer] Work Phone: Start: 08-06-2024 Glucose measurement, blood Felicity Castellano MD Work Phone: Start: 08-05-2024 Glucose measurement, blood Felicity Castellano MD Work Phone: Start: 08-05-2024 Assay of magnesium Nase rin M Nadine FI[employer] MANAGER[employer] Work Phone: Start: 08-05-2024 Glucose measurement, blood Felicity Castellano MD Work Phone: Start: 08-05-2024 Glucose measurement, blood Felicity Castellano MD Work Phone: Start: 08-05-2024 Echo tthrc r-t 2d w/wom-mode compl spec&colr d Taran Traore [employer] MANAGER[employer] Work Phone: Start: 08-05-2024 Glucose measurement, blood Felicity Castellano MD Work Phone: Start: 08-05-2024 Assay of magnesium Nase rin M Nadine FI[employer] MANAGER[employer] Work Phone: Start: 08-05-2024 Glucose measurement, blood [...] Start: 08-04-2024 Assay of magnesium Abram Mccoy [employer] MANAGER[employer] Work Phone: Start: 08-04-2024 Glucose measurement, blood Richard Mejia MD Work Phone: Start: 08-03-2024 Ct head/brain w/o co ntrast material Shaila L Ciupak PA-C Start: 08-03-2024 Sodium serum plasma or whole blood Shanna Denise MD Work Phone: Start: 08-03-2024 Glucose measurement, blood Richard Mejia MD Work Phone: Start: 08-03-2024 Radiologic exam abdo men 1 view Balbir Hwang Nadine FI[employer] MANAGER[employer] Work Phone: Start: 08-03-2024 Glucose measurement, blood [...] brain stem w/o contrast material Taran Traore FI[employer] MANAGER[employer] Work Phone: Start: 08-03-2024 ABORH TYPE RECONFIRMATION Cindy CORDOVA Work Phone: Start: 08-03-2024 Assay of magnesium Abram Mccoy FI[employer] MANAGER[employer] Work Phone: Start: 08-02-2024 Glucose measurement, blood [...] #### X M #### [facility] ([facility]) [address] [place] [address] Start: 08-02-2024 EXTRA MICRO Taran Traore FI[employer] MANAGER[employer] Work Phone: Start: 08-02-2024 Hemoglobin glycosylated a1c Blabir Mccoy FI[employer] MANAGER[employer] Work Phone: Start: 08-02-2024 Hepatic function panel Balbir Mccoy FI[employer] MANAGER[employer] Work Phone: Start: 08-02-2024 Iadna s aureus ampli fied probe tq Balbir Mccoy FI[employer] MANAGER[employer] Work Phone: Start: 08-02-2024 URINALYSIS REFLEX TO CULTURE Taran Traore FIRE MANAGER[employer] Work Phone: Start: 08-02-2024 Urnls dip stick/tabl et reagent auto microscopy Taran Traore FI[employer] MANAGER[employer] Work Phone: Start: 08-02-2024 SARS-CoV-2, Influenz a [...] Author Start: 08-15-2025 Complete blood count Hemoglobin/Hematocrit [facility] Start: 08-15-2025 Creatinine measurement Serum Creatinine [facility] Start: 08-02-2025 Thyroid stimulating hormone measurement [facility] Start: 06-26-2025 Annual PCP Team Chronic Disease Visit Annual PCP Team Chronic Disease Visit [facility] Start: 05-31-2025 Annual PCP Team Chronic Disease Visit Annual PCP Team Chronic Disease Visit [facility] Start: 05-31-2025 Covid-19 Vaccine ( season) Covid-19 Vaccine () [facility] Comment on above: Postponed from 01/14/2024 (Declined at t his time) Start: 05-31-2025 Pneumococcal Vaccine: 50+ (2 of 2 - PPSV23) Pneumococcal Vaccine: 50+ (2 of 2 - PPSV23) [facility] Comment on above: Postponed from 12/19/2019 (Declined at t his time) Start: 05-23-2025 Creatinine measurement Serum Creatinine [facility] Start: 05-23-2025 Hepatitis B screening Urine Albumin:Creatinine Ratio [facility] Start: 05-23-2025 Hepatitis B surface antibody level LDL Cholesterol [facility] Start: 02-02-2025 Hemoglobin A1c measurement HbA1C [facility] Start: 01-13-2025 Influenza vaccination [facility] Start: 01-03-2025 Glaucoma screening Dilated Retinal Exam [facility] Start: 12-24-2024 End: 12-24-2024 Patient encounter procedure 12/24/2024 9:20 AM EDT Office Visit [facility] [address] [place], [place] [id number] Kameron Caruso MD [address] [place], [place] [id number] 6 month follow up [facility] Comment on above: 6 month follow up Start: 11-28-2024 End: 02-27-2025 Comprehensive metabolic 2000 panel - Serum or Plasma COMPREHENSIVE METABOLIC PANEL Lab Routine Essential hypertension, benign Chronic kidney disease, stage 3a (HCC) Hyperlipidemia, unspecified hyperlipidemia type Expected: 11/28/2024 (Approximate), Expires: 02/27/2025 [facility] Work Phone: Comment on above: Expected: 11/28/2024 (Approximate), Expi res: 02/27/2025 Start: 11-28-2024 End: 02-27-2025 Hemoglobin A1c in Blood HEMOGLOBIN A1C Lab Routine Expected: 11/28/2024 (Approximate), Expires: 02/27/2025 [facility] Comment on above: Expected: 11/28/2024 (Approximate), Expi res: 02/27/2025 Start: 11-28-2024 End: 02-27-2025 Lipid 1996 panel - Serum or Plasma LIPID PANEL BASIC Lab Routine Essential hypertension, benign Hyperlipidemia, unspecified hyperlipidemia type Expected: 11/28/2024 (Approximate), Expires: 02/27/2025 [facility] Comment on above: Expected: 11/28/2024 (Approximate), Expi res: 02/27/2025 Start: 11-28-2024 End: 02-27-2025 Thyrotropin [Units/volume] in Serum or Plasma THYROID STIMULATING HORMONE Lab Routine Hypothyroidism, unspecified type Expected: 11/28/2024 (Approximate), Expires: 02/27/2025 [facility] Comment on above: Expected: 11/28/2024 (Approximate), Expi res: 02/27/2025 Start: 11-27-2024 Annual PCP Team Chronic Disease Visit Annual PCP Team Chronic Disease Visit [facility] Start: 11-27-2024 Anxiety Screening Anxiety Screening [facility] Start: 11-27-2024 Depression Screening Depression Screening [facility] Start: 11-27-2024 RSV Vaccine (1 - 1-dose 60+ series) RSV Vaccine (1 - 1-dose 60+ series) [facility] Comment on above: Postponed from 2004 (Declined at t his time) Start: 11-27-2024 RSV Vaccine (1 - 1-dose 75+ series) RSV Vaccine (1 - 1-dose 75+ series) [facility] Comment on above: Postponed from 10/26/2019 (Declined at t his time) Start: 11-26-2024 Creatinine measurement Serum Creatinine [facility] Start: 11-26-2024 Hepatitis B surface antibody level LDL Cholesterol [facility] Start: 11-20-2024 Hemoglobin A1c measurement HbA1C [facility] Start: 11-11-2024 Influenza vaccination Influenza Vaccine (#1) [facility] Comment on above: Postponed from 01/14/2024 (Declined at t his time) Start: 10-08-2024 End: 10-08-2024 ambulatory [facility] Start: 10-02-2024 Evaluation of diagnostic study results 12 Lead EKG performed by [facility] Start: 08-02-2024 [facility] Start: 08-02-2024 SARS-CoV-2, Influenza & RSV (PCR) SARS-CoV-2, Influenza & RSV (PCR) [facility] Start: 08-02-2024 End: 08-02-2024 [facility] Start: 08-02-2024 Electrocardiographic procedure [facility] Start: 08-02-2024 Oxygen therapy [facility] Start: 07-24-2024 End: 10-23-2024 Thyrotropin [Units/volume] in Serum or Plasma THYROID STIMULATING HORMONE Lab Routine Hypothyroidism, unspecified type Expected: 07/24/2024, Expires: 10/23/2024 [facility] Work Phone: Comment on above: Expected: 07/24/2024, Expires: Start: 07-24-2024 End: 10-23-2024 Thyroxine (T4) free [Mass/volume] in Serum or Plasma T4 FREE/FREE THYROXINE Lab Routine Hypothyroidism, unspecified type Expected: 07/24/2024, Expires: 10/23/2024 [facility] Comment on above: Expected: 07/24/2024, Expires: Start: 06-25-2024 End: 06-25-2024 Patient encounter procedure 06/25/2024 9:40 AM EST Office Visit Family [facility] [address] [place], [place] [id number] Kameron Caruso MD [address] [place], [place] [address] 1 mo f/u, new dx afib. Family [facility] Comment on above: 1 mo f/u, new dx afib. Start: 06-11-2024 End: 06-11-2024 Patient encounter procedure 06/11/2024 8:50 AM EST Office Visit Cardiology [address] [place], [place] [id number] Atrial fibrillation, unspecified type (HCC) [I48.91] Cardiology Comment on above: Atrial fibrillation, unspecified type (H CC) [I48.91] Start: 05-30-2024 Annual PCP Team Chronic Disease Visit Annual PCP Team Chronic Disease Visit [facility] Start: 05-30-2024 End: 08-29-2024 Comprehensive metabolic 2000 panel - Serum or Plasma COMPREHENSIVE METABOLIC PANEL Lab Routine Type 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, unspecified CKD stage, unspecified whether fci insulin use (HCC) Essential hypertension, benign Chronic kidney disease, stage 3a (HCC) Hyperlipidemia, unspecified hyperlipidemia type Expected: 05/30/2024 (Approximate), Expires: 08/29/2024 [facility] Work Phone: Comment on above: Expected: 05/30/2024 (Approximate), Expi res: 08/29/2024 Start: 05-30-2024 Covid-19 Vaccine () Covid-19 Vaccine () [facility] Comment on above: Postponed from 01/13/2023 (Declined at t his time) Start: 05-30-2024 End: 08-29-2024 Hemoglobin A1c in Blood HEMOGLOBIN A1C Lab Routine Type 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, unspecified CKD stage, 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 insulin use (HCC) Expected: 05/30/2024 (Approximate), Expires: 08/29/2024 [facility] Comment on above: Expected: 05/30/2024 (Approximate), Expi res: 08/29/2024 Start: 05-30-2024 Hepatitis C screening Hepatitis C Screening [facility] Comment on above: Postponed from 1962 (Declined at t his time) Start: 05-30-2024 End: 08-29-2024 Lipid 1996 panel - Serum or Plasma LIPID PANEL BASIC Lab Routine Type 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, unspecified CKD stage, unspecified whether fci insulin use (HCC) Essential hypertension, benign Hyperlipidemia, unspecified hyperlipidemia type Expected: 05/30/2024 (Approximate), Expires: 08/29/2024 [facility] Comment on above: Expected: 05/30/2024 (Approximate), Expi res: 08/29/2024 Start: 05-30-2024 End: 08-29-2024 Microalbumin/Creatinine [Mass Ratio] in Urine ALBUMIN/CREATININE RATIO, URINE Lab Routine Type 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, unspecified CKD stage, unspecified whether fci insulin use (HCC) Expected: 05/30/2024 (Approximate), Expires: 08/29/2024 [facility] Comment on above: Expected: 05/30/2024 (Approximate), Expi res: 08/29/2024 Start: 05-30-2024 Pneumococcal Vaccine: 65+ (2 of 2 - PPSV23 or PCV20) Pneumococcal Vaccine: 65+ (2 of 2 - PPSV23 or PCV20) [facility] Comment on above: Postponed from 12/19/2019 (Declined at t his time) Start: 05-30-2024 End: 08-29-2024 Thyrotropin [Units/volume] in Serum or Plasma THYROID STIMULATING HORMONE Lab Routine Hypothyroidism, unspecified type Expected: 05/30/2024 (Approximate), Expires: 08/29/2024 [facility] Comment on above: Expected: 05/30/2024 (Approximate), Expi res: 08/29/2024 Start: 05-30-2024 End: 05-30-2024 Patient encounter procedure 05/30/2024 9:40 AM EST Office Visit [facility] [address] [place], [place] [phone] Kameron Caruso MD [address] [place] [address] 6 mo f/u [facility] Comment on above: 6 mo f/u Start: 05-29-2024 [facility] Start: 05-16-2024 Creatinine measurement Serum Creatinine [facility] Start: 05-16-2024 Hepatitis B screening Urine Albumin:Creatinine Ratio [facility] Start: 05-16-2024 Hepatitis B surface antibody level LDL Cholesterol [facility] Start: 05-15-2024 Advance Directive Discussion Advance Directive Discussion [facility] Start: 01-14-2024 Influenza vaccination [facility] Start: 01-14-2024 [facility] Start: 01-04-2024 Glaucoma screening Dilated Retinal Exam [facility] Start: 01-04-2024 Hepatitis C antibody, confirmatory test Dilated Retinal Exam [facility] Start: 11-28-2023 End: 07-16-2024 Patient encounter procedure 11/28/2023 9:40 AM EDT Office Visit [facility] [address] [place] [address] Kameron Caruso MD [address] [place] [address] 6 mo follow up Family [facility] Comment on above: 6 mo follow up Start: 11-26-2023 ANNUAL PCP TEAM CHRONIC DISEASE VISIT ANNUAL PCP TEAM CHRONIC DISEASE VISIT [facility] Start: 11-26-2023 BP CONTROLLED (<130/80) BP CONTROLLED (<130/80) [facility] Start: 11-23-2023 Complete blood count Hemoglobin/Hematocrit [facility] Start: 11-23-2023 HEMOGLOBIN/HEMATOCRIT HEMOGLOBIN/HEMATOCRIT [facility] Start: 11-23-2023 Hepatitis B surface antibody level LDL CHOLESTEROL [facility] Start: 11-23-2023 SERUM CREATININE SERUM CREATININE [facility] Start: 11-14-2023 Hemoglobin A1c measurement HbA1C [facility] Start: 05-27-2023 ANNUAL PCP TEAM CHRONIC DISEASE VISIT ANNUAL PCP TEAM CHRONIC DISEASE VISIT [facility] Start: 05-27-2023 COVID-19 VACCINE (2 - Booster for Alyssa series) COVID-19 VACCINE (2 - Booster for Alyssa series) [facility] Comment on above: Postponed from 09/17/2020 (Declined at t his time) Start: 05-27-2023 HEPATITIS C SCREENING HEPATITIS C SCREENING [facility] Comment on above: Postponed from 1962 (Declined at t his time) Start: 05-25-2023 Hemoglobin A1c/Hemoglobin.total in Blood HBA1C [facility] Start: 05-19-2023 HEMOGLOBIN/HEMATOCRIT HEMOGLOBIN/HEMATOCRIT [facility] Start: 05-19-2023 Hepatitis B surface antibody level LDL CHOLESTEROL [facility] Start: 05-19-2023 SERUM CREATININE SERUM CREATININE [facility] Start: 05-15-2023 Advance Directive Discussion Advance Directive Discussion [facility] Start: 05-15-2023 Behavioral Health Screening Behavioral Health Screening [facility] Start: 03-02-2023 ANNUAL PCP TEAM CHRONIC DISEASE VISIT ANNUAL PCP TEAM CHRONIC DISEASE VISIT [facility] Start: 01-13-2023 Covid-19 Vaccine () Covid-19 Vaccine () [facility] Start: 01-13-2023 Influenza vaccination [facility] Start: 12-27-2022 Hepatitis C antibody, confirmatory test DILATED RETINAL EXAM [facility] Start: 11-24-2022 End: 01-24-2023 CBC panel - Blood by Automated count CBC Lab Routine Essential hypertension, benign Hypothyroidism, unspecified type Expected: 11/24/2022 (Approximate), Expires: 01/24/2023 [facility] Work Phone: Comment on above: Expected: 11/24/2022 (Approximate), Expi res: 01/24/2023 Start: 11-24-2022 End: 01-24-2023 Comprehensive metabolic 2000 panel - Serum or Plasma COMP METABOLIC PANEL Lab Routine Essential hypertension, benign Type 2 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, without long-term current use of insulin (HCC) Hyperlipidemia, unspecified hyperlipidemia type Expected: 11/24/2022 (Approximate), Expires: 01/24/2023 [facility] Work Phone: Comment on above: Expected: 11/24/2022 (Approximate), Expi res: 01/24/2023 Start: 11-24-2022 End: 01-24-2023 Hemoglobin A1c in Blood HGB A1C Lab Routine Type 2 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, without long-term current use of insulin (HCC) Expected: 11/24/2022 (Approximate), Expires: 01/24/2023 [facility] Work Phone: Comment on above: Expected: 11/24/2022 (Approximate), Expi res: 01/24/2023 Start: 11-24-2022 End: 01-24-2023 Lipid 1996 panel - Serum or Plasma LIPID PANEL BASIC Lab Routine Essential hypertension, benign Type 2 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, without long-term current use of insulin (HCC) Hyperlipidemia, unspecified hyperlipidemia type Expected: 11/24/2022 (Approximate), Expires: 01/24/2023 [facility] Work Phone: Comment on above: Expected: 11/24/2022 (Approximate), Expi res: 01/24/2023 Start: 11-24-2022 End: 01-24-2023 Thyrotropin [Units/volume] in Serum or Plasma TSH BLD Lab Routine Hypothyroidism, unspecified type Expected: 11/24/2022 (Approximate), Expires: 01/24/2023 [facility] Work Phone: Comment on above: Expected: 11/24/2022 (Approximate), Expi res: 01/24/2023 Start: 11-23-2022 3 comp foot exam completed [facility] FOOT [facility] Start: 11-23-2022 ANNUAL PCP TEAM CHRONIC DISEASE VISIT ANNUAL PCP TEAM CHRONIC DISEASE VISIT [facility] Start: 11-23-2022 Diabetic foot examination Diabetic Foot Exam [facility] Start: 11-20-2022 Hepatitis B screening URINE ALBUMIN:CREATININE RATIO [facility] Start: 11-20-2022 Hepatitis B surface antibody level LDL CHOLESTEROL [facility] Start: 11-20-2022 SERUM CREATININE SERUM CREATININE [facility] Start: 11-16-2022 Hemoglobin A1c/Hemoglobin.total in Blood HBA1C [facility] Start: 11-11-2022 Influenza vaccination INFLUENZA (#1) [facility] Comment on above: Postponed from 01/13/2022 (Declined at t his time) Start: 05-26-2022 End: 07-26-2022 CBC panel - Blood by Automated count CBC Lab Routine Essential hypertension, benign Stage 3b chronic kidney disease (HCC) Expected: 05/26/2022 (Approximate), Expires: 07/26/2022 [facility] Work Phone: Comment on above: Expected: 05/26/2022 (Approximate), Expi res: 07/26/2022 Start: 05-26-2022 End: 07-26-2022 Comprehensive metabolic 2000 panel - Serum or Plasma COMP METABOLIC PANEL Lab Routine Type 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, unspecified CKD stage, 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 insulin use (HCC) Essential hypertension, benign Hyperlipidemia, unspecified hyperlipidemia type Stage 3b chronic kidney disease (HCC) Expected: 05/26/2022 (Approximate), Expires: 07/26/2022 [facility] Work Phone: Comment on above: Expected: 05/26/2022 (Approximate), Expi res: 07/26/2022 Start: 05-26-2022 End: 07-26-2022 Hemoglobin A1c in Blood HGB A1C Lab Routine Type 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, unspecified CKD stage, unspecified whether fci insulin use (HCC) Expected: 05/26/2022 (Approximate), Expires: 07/26/2022 [facility] Work Phone: Comment on above: Expected: 05/26/2022 (Approximate), Expi res: 07/26/2022 Start: 05-26-2022 End: 07-26-2022 Lipid 1996 panel - Serum or Plasma LIPID PANEL BASIC Lab Routine Essential hypertension, benign Hyperlipidemia, unspecified hyperlipidemia type Expected: 05/26/2022 (Approximate), Expires: 07/26/2022 [facility] Work Phone: Comment on above: Expected: 05/26/2022 (Approximate), Expi res: 07/26/2022 Start: 05-26-2022 End: 07-26-2022 Thyrotropin [Units/volume] in Serum or Plasma TSH BLD Lab Routine Hypothyroidism, unspecified type Expected: 05/26/2022 (Approximate), Expires: 07/26/2022 [facility] Work Phone: Comment on above: Expected: 05/26/2022 (Approximate), Expi res: 07/26/2022 Start: 05-23-2022 Hemoglobin A1c/Hemoglobin.total in Blood HBA1C [facility] Start: 05-18-2022 ANNUAL PCP TEAM CHRONIC DISEASE VISIT ANNUAL PCP TEAM CHRONIC DISEASE VISIT [facility] Start: 05-17-2022 Hepatitis B surface antibody level LDL CHOLESTEROL [facility] Start: 05-17-2022 SERUM CREATININE SERUM CREATININE [facility] Start: 05-15-2022 ADVANCE DIRECTIVE DISCUSSION ADVANCE DIRECTIVE DISCUSSION [facility] Start: 01-13-2022 Influenza vaccination [facility] Start: 01-11-2022 Hepatitis C antibody, confirmatory test DILATED RETINAL EXAM [facility] Start: 11-14-2021 Hemoglobin A1c/Hemoglobin.total in Blood HBA1C [facility] Start: 11-06-2021 Screening for malignant neoplasm of breast [facility] Start: 11-05-2021 3 comp foot exam completed DIABETIC FOOT EXAM [facility] Start: 11-05-2021 Adult depression screening assessment DEPRESSION SCREENING [facility] Start: 11-04-2021 Hepatitis B screening URINE ALBUMIN:CREATININE RATIO [facility] Start: 10-15-2021 Hepa vaccine adult dose for intramuscular use HEPATITIS A VACCINE ADULT IM Immunization/Injection Routine Need for vaccination Expected: 10/15/2021 [facility] Work Phone: Comment on above: Expected: 10/15/2021 Start: 10-15-2021 Tdap vaccine 7 yrs/> im TDAP VACCINE AGE 7+ IM Immunization/Injection Routine Need for vaccination Expected: 10/15/2021 [facility] Work Phone: Comment on above: Expected: 10/15/2021 Start: 05-15-2021 ADVANCE DIRECTIVE DISCUSSION ADVANCE DIRECTIVE DISCUSSION [facility] Start: 05-15-2021 DEPRESSION ASSESSMENT DEPRESSION ASSESSMENT [facility] Start: 10-23-2020 PNEUMOCOCCAL: 65+ (2 - PPSV23 if available, else PCV20) PNEUMOCOCCAL: 65+ (2 - PPSV23 if available, else PCV20) [facility] Start: 10-23-2020 PNEUMOCOCCAL: 65+ (2 - PPSV23 or PCV20) PNEUMOCOCCAL: 65+ (2 - PPSV23 or PCV20) [facility] Start: 10-16-2020 HEMOGLOBIN/HEMATOCRIT HEMOGLOBIN/HEMATOCRIT [facility] Start: 09-17-2020 COVID-19 VACCINE (2 - Booster for Alyssa series) COVID-19 VACCINE (2 - Booster for Alyssa series) [facility] Start: 12-19-2019 Pneumococcal vaccination [facility] Start: 12-19-2019 Pneumococcal Vaccine: 65+ (2 - PPSV23 or PCV20) Pneumococcal Vaccine: 65+ (2 - PPSV23 or PCV20) [facility] Start: 12-19-2019 PNEUMOCOCCAL: 65+ (2 - PPSV23 or PCV20) PNEUMOCOCCAL: 65+ (2 - PPSV23 or PCV20) [facility] Start: 11-08-2019 Screening for malignant neoplasm of colon [facility] Start: 10-26-2019 [facility] Start: 01-13-2019 Influenza vaccination Flu vaccine (#1) [facility] [place] Start: 12-23-2018 Annual Wellness Visit (AWV) Annual Wellness Visit (AWV) [place] Start: 2009 DEXA (modify frequency per FRAX score) DEXA (modify frequency per FRAX score) [place] Start: 2009 Pneumococcal 65+ years Vaccine (1 of 1 - PPSV23) Pneumococcal 65+ years Vaccine (1 of 1 - PPSV23) [place] Start: 2009 Pneumococcal 65+ years Vaccine (1 of 2 - PCV13) Pneumococcal 65+ years Vaccine (1 of 2 - PCV13) [place] Start: 10-26-2007 Annual Wellness Visit (AWV) Annual Wellness Visit (AWV) [place] Start: 2004 Hepatitis B Vaccine (1 of 3 - Risk 3-dose series) Hepatitis B Vaccine (1 of 3 - Risk 3-dose series) [facility] Start: 2004 RSV Vaccine (1 - 1-dose 60+ series) RSV Vaccine (1 - 1-dose 60+ series) [facility] Start: 10-26-1999 Screening for osteoporosis DEXA (modify frequency per FRAX score) [place] Start: 1994 Breast cancer screen Breast cancer screen [place] Start: 1994 Colon cancer screen colonoscopy Colon cancer screen colonoscopy [place] Start: 1994 Screening for malignant neoplasm of breast Breast cancer screen [place] Start: 1994 Screening for malignant neoplasm of colon Colon cancer screen colonoscopy [place] Start: 1994 Shingles Vaccine (1 of 2) Shingles Vaccine (1 of 2) [place] Start: 1984 Lipid screen Lipid screen [place] Start: 1965 Screening for malignant neoplasm of cervix [facility] Start: 10-26-1963 DTaP/Tdap/Td vaccine (1 - Tdap) DTaP/Tdap/Td vaccine (1 - Tdap) [place] Start: 10-26-1963 Third diphtheria, tetanus and acellular pertussis (DTaP) vaccination [facility] Start: 10-26-1963 Urine microalbumin profile [facility] Start: 1962 BP CONTROLLED (<130/80) BP CONTROLLED (<130/80) [facility] Start: 1962 HEPATITIS C SCREENING HEPATITIS C SCREENING [facility] Start: 1954 Lipid panel Lipid screen [place] Start: 1944 Creatinine measurement Creatinine monitoring [place], [place] Start: 1944 Creatinine monitoring Creatinine monitoring [place], [place] Start: 1944 Hepatitis C screen Hepatitis C screen [place] Start: 1944 Hepatitis C screening [facility] Start: 1944 Potassium monitoring Potassium monitoring [place] Start: 1944 Screening for osteoporosis [facility] Start: 1944 Tetanus vaccination [facility] End: 01-09-2019 Blood glucose - POCT Blood glucose - POCT Point of Care Testing Routine One Time for 1 Occurrences starting 01/09/2019 until 01/09/2019 [place] Comment on above: One Time for 1 Occurrences starting 12/14 until 01/09/2019 ECG COMPLETE [facility] Comment on above: Ordered: 05/31/2024 End: 05-31-2025 Echocardiography ECHO Cardiology Routine Atrial fibrillation, unspecified type (HCC) 1 Occurrences starting 05/31/2024 until 05/31/2025 [facility] Comment on above: 1 Occurrences starting 05/31/2024 until 05/31/2025 Patient referral [facility] Work Phone: End: 01-09-2019 Pulse Oximetry Spot Check Pulse Oximetry Spot Check Respiratory Care Routine One Time for 1 Occurrences starting 01/09/2019 until 01/09/2019 [place] Comment on above: One Time for 1 Occurrences starting 12/14 until 01/09/2019 End: 08-02-2024 PV FLUOROSCOPY OR [facility] End: 08-02-2024 Standard ECG [facility] Immunizations Immunization Date Immunization Notes Care Provider Paramjit hassan 07-23-2020 SARS-CoV-2 (COVID-19 ) Ad26 vaccine, recombinant SILVINO HA DO [facility] Comment on above: Result Comment: 2024: [id number] 02-27-2020 influenza, high dose seasonal, preservative-free Kameron Caruso MD Work Phone: [facility] 02-27-2020 influenza virus vaccine, unspecified formulation Kameron Caruso MD Work Phone: [facility] 10-24-2019 pneumococcal conjuga te vaccine, 13 valent Kameron Caruso MD Work Phone: [facility] 10-24-2019 zoster vaccine recombinant Kameron Caruso MD Work Phone: [facility] 07-25-2019 influenza virus vaccine, unspecified formulation SILVINO HA DO [facility] 07-25-2019 influenza, seasonal, injectable Kameron Caruso MD Work Phone: [facility] 07-25-2019 zoster vaccine recombinant Kameron Caruso MD Work Phone: [facility] 04-13-2015 influenza virus vaccine, unspecified formulation SILVINO HA DO [facility] 05-01-2014 influenza virus vaccine, unspecified formulation SILVINO HA DO [facility] 05-01-2014 influenza, high dose seasonal, preservative-free Kameron Caruso MD Work Phone: [facility] 02-22-2012 influenza virus vaccine, unspecified formulation Kameron Caruso MD Work Phone: [facility] Work Phone: 03-19-2007 influenza virus vaccine, unspecified formulation Kameron Caruso MD Work Phone: [facility] Work Phone: Payers Date Payer Category Payer Medicare [id number] 2024 Unknown [id number] 2024 Self-pay 2018 Medicare [employer] RE [employer]AGE [facility]VANT[facility] xxxxxxxxxxx 2018-Present [phone] [address] [place] [address] xxxxxxxxxxx [id number] 2018 Unknown [id number] 2013 [place] [employer] [id number] 2013-Present [phone] [address] [place] [address] O [id number] .[id number] 2013 Medicare [id number] .[id number] 2013 Medicare (Managed Care) 1.2. [id number] 2013 Medicare [id number] 1944 Unknown [id number] 2.16.840.1.917599.3.579.2 .627 1944 Unknown [id number] 2.16.840.1.948025.3.579.2 .732 1944 Unknown [id number] 2.16.840.1.084258.3.579.2 .627 1944 Unknown [id number] 2.16.840.1.364967.3.579.2 .594 1944 Unknown [id number] 2.16.840.1.120334.3.579.2 .594 Unknown [id number] 2.16.840.1.594566.3.579.2 .462 Unknown [id number] 2.16.840.1.910801.3.579.2 .462 Unknown [id number] 2.16.840.1.332900.3.579.2 .462 Unknown [id number] 2.16.840.1.219204.3.579.2 .462 Unknown [id number] 2.16.840.1.797312.3.579.2 .462 Unknown [id number] 2.16840.1.258141.3.579.2 .462 Unknown [id number] 2.16840.1.013020.3.579.2 .462 Unknown [id number] 2..840.1.859054.3.579.2 .462 Unknown [id number] 2.16.840.1.912727.3.579.2 .462 Unknown [id number] 2.840.1.422590.3.579.2 .462 Unknown [id number] 2.840.1.187459.3.579.2 .462 Unknown [id number] 2.840.1.812200.3.579.2 .462 Unknown [id number] 2.840.1.802559.3.579.2 .462 Unknown [id number] 2.16.840.1.798974.3.579.2 .462 Unknown [id number] 2.840.1.620490.3.579.2 .462 Unknown [id number] 2.16840.1.722840.3.579.2 .462 Unknown [id number] 2.16840.1.797088.3.579.2 .462 Unknown [id number] 2.16840.1.908459.3.579.2 .462 Unknown [id number] 2.16.840.1.881432.3.579.2 .462 Unknown [id number] 2.16840.1.573821.3.579.2 .462 Unknown [id number] 2.16.840.1.160247.3.579.2 .462 Unknown [id number] 2.16.840.1.549155.3.579.2 .462 Unknown [id number] 2.16.840.1.037643.3.579.2 .462 Unknown [id number] 2.16.840.1.280523.3.579.2 .462 Unknown [id number] 2.16.840.1.776170.3.579.2 .462 Social History Date Type Detail Facility Start: 01-09-2019 End: 08-02-2024 Tobacco smoking status NHIS Never smoker [facility] Start: 01-09-2019 End: 11-25-2022 Alcohol intake Never [facility] Work Phone: Start: 12-24-2018 History SDOH Alcohol Frequency 1 [place], [place] Start: 1945 Sex Assigned At Not on file [place] Start: 10-16-2019 Alcohol intake Lifetime non-d hortencia (finding) [place] Exposure to SARS-CoV -2 (event) Unable to assess [place] Start: 05-18-2021 End: 06-26-2024 Alcohol intake Current non-drinker of alcohol (finding) [facility] Start: 11-13-2021 End: 03-02-2022 Exposure to SARS-CoV-2 (event) Not sure [facility] Start: 02-02-2011 End: 03-02-2022 Tobacco use and exposure Smokeless tobacco non-user [facility] Start: 11-25-2022 End: 11-28-2023 History of Social function [facility] Work Phone: Adult Depression Screening Assessment 0 [facility] Work Phone: Start: 06-22-2005 End: 08-02-2024 Sex Female (finding) [facility] Start: 1945 Sex Assigned At Female [facility] Sexual Orientation [facility] Medical Equipment Procedure Code Equipment Code Equipment Original Text Equipment Identifier Dates [id number], [id number], [id number] Start: 11-30-2020 End: 04-08-2023 Comment on above: Use to test sugars 1 times per day. Dx: E11.. Insulin: No Test Blood Sugar one times daily Dx: E11. Insulin: No Test blood sugar(s) 1 times daily. Dx: Type 2 DM - Controlled E11.9 , Insulin: No Test blood sugars 1 time daily. Dx: Type 2 DM Controlled E11.9. Insulin: no Unknown Unknown 08/21/18 Unknown Unknown FDA Start: 08-21-2018 FDA Start: 08-21-2018 FDA Start: 08-21-2018 FDA Start: 08-21-2018 Functional Status Date Assessment Result Facility 09-09-2024 Functional Status Room check performed [facility] 09-09-2024 Functional Status [facility] 09-09-2024 Functional Status Skin Care Prev entative Intervention(s) heel(s)s elevated [facility] 09-08-2024 Functional Status [facility] 09-08-2024 Functional Status [facility] 09-06-2024 Functional Status 11pm-7am [facility] 09-06-2024 Functional Status Antiembolism S tocking On/Re-applied bilateral knee high [facility] 09-05-2024 Functional Status Oral Care Maximum wilfred tance [facility] 09-05-2024 Functional Status [facility] 09-05-2024 Functional Status Done [facility] 09-04-2024 Functional Status [facility] 09-04-2024 Functional Status [facility] 09-03-2024 Functional Status NPO Status Maintained [facility] 09-03-2024 Functional Status None [facility] 09-03-2024 Functional Status [facility] 08-29-2024 Functional Status [facility] 08-29-2024 Functional Status [facility] 08-27-2024 Functional Status Orthotics, Dev ice Worn Per Schedule Yes [facility] 08-27-2024 Functional Status [facility] 08-26-2024 Functional Status [facility] 08-23-2024 Functional Status [facility] 08-23-2024 Functional Status Breakfast Percent 25 [facility] 08-20-2024 Functional Status [facility] 08-19-2024 Functional Status [facility] 08-16-2024 Functional Status Single level h ome, basement laundry [facility] 08-16-2024 Functional Status Outside Stairs Rail Rail on left going up [facility] 08-15-2024 Functional Status Sensory Defici ts Speech deficit [facility] 10-14-2014 Are you deaf, or do you have serious difficulty hearing No [facility] 10-14-2014 Are you blind, or do you have serious difficulty seeing, even when wearing glasses No [facility] 10-14-2014 Do you have serious difficulty walking or climbing stairs No [facility] 10-14-2014 Do you have difficul ty dressing or bathing No [facility] 10-14-2014 Because of a physica l, mental, or emotional condition, do you have difficulty doing errands alone such as visiting a physician's office or shopping No [facility] Mental Status Date Assessment Result Facility 09-09-2024 Mental Status Does not interact [facility] 09-08-2024 Mental Status [facility] 09-08-2024 Mental Status [facility] 08-02-2024 Cognitive function Awake;Alert;F ollows Commands [facility] Work Phone: 10-14-2014 Because of a physica l, mental, or emotional condition, do you have serious difficulty concentrating, remembering, or making decisions No [facility] Clinical Notes 11-03-2020 to 10-02-2024 Note Date & Type Note Facility 10-02-2024 Evaluation note Diagnosis Onset Date Resolution Acute ischemic right MCA stroke acute October 02, 2024 9:29am Essential hypertension acute Ma 2024 9:29am Hyperlipidemia acute October 02, 2024 9:29am Paroxysmal atrial fibrillation with RVR acute October 02, 2024 9:29am [facility] Work Phone: 1(265) 852-542904-28-2025 Note Discharge Instructions Thank you for allowing [...] KAMERON CARUSO MD When:Within 3-7 days Where:[address] [place] [address]- Additional Information: Please schedule follow up PCP appointment for after discharge from SNF, Bring discharge instructions with you Follow Up with RIMMA POWERS MD When:10/08/2024 04:00 PM EDT Where:[facility] ([address], [place]) Additional Information: Neurosurgeon The Following Activity and [...] standard right Seat cushion, 99 month(s), [facility] [id number], 09/02/24 8:22:00 EDT Transfer of Care Wound [...] depending on your insurance coverage. Check with [employer] company about what is covered. Keeping follow-up [...] 08/04/2017 Document Revised: 05/04/2018 Document Reviewed: 08/04/2017 [employer] Patient Education 2020 [facility] Additional Information VACCINATE! IT SAVES LIVES! Members of the community who have not yet received the COVID-19 vaccine and would like to receive it can visit one of [facility] vaccine clinics. There are many vaccine clinic locations within the [facility]. For locations and available times, please visit [email or web address] It is important to note that some COVID mobile vaccine clinics are held outdoors and may be canceled in rainy or stormy conditions. To learn more about pediatric vaccinations (ages 5-11), we invite you to visit the [facility] webpage. [email or web address] [email or web address] learn more about the COVID-19 vaccine, we invite you to visit the CDC website for a list of frequently asked questions.https://www.cdc.gov/coronavirus/2019-ncov/vaccines/faq.html [place] [facility] Patient Portal Access Instructions: Stay connected with your healthcare team and access your personal medical information anytime with the [facility] Patient Portal. Please follow the directions below to create your [facility] account: 1.Access the email account you provided upon registration to the hospital/physician office.2.Look for an invitation email from [facility].3.Open the email and access the invitation link: AcceptInvitation to [facility].4.Fill in the required richards to create your account. To access your account, visit [email or web address]. Click the blue button labeled "Access Patient Portal" and then log in with the username and password that you created in the steps above. You will be able to view your test results, lab results, a summary of your visits, upcoming appointments and more. There is also a convenient messaging option where you can send secure messages to your p rovider. In addition, you will have the ability to download any documents or summaries to your computer and/or send the information securely to a physician. Remember that your healthcare information is confidential, so carefully consider who you will allowto register on the [facility] Patient Portal for access to your information. You can also access the [facility] Patient Portal on the [facility] dahlia. Simply click on "Patient Portal" and then log into your account. If you would like to receive a full copy of your medical records, please contact the [facility] Medical Records Department by calling [phone], Monday through Monday between 8 a.m. and [...] Call your local pharmacy or go to [email or web address] to find one close to you.3.Make use of household items: Use cat litter or old coffee grounds to dispose medications if other options arenot available. Mix your drugs with these household products, seal them in an airtight container andthrow it into the garbage. Call [facility]: [phone] to be sure your drugs can be [...] aware that I should contact my doctor. Patient/Pourer Bull Ladle Signature: Date/Time: Relationship to Patient: Witness Name/Signature: Date/Time: [facility] [id number] Note Discharge Instructions Thank you for allowing [...] KAMERON CARUSO MD When:Within 3-7 days Where:[address] [place] [address]- Additional Information: Please schedule follow up PCP appointment for after discharge from SNF, Bring discharge instructions with you Follow Up with RIMMA POWERS MD When:10/08/2024 04:00 PM EDT Where:[facility] ([address], [place]) Additional Information: Neurosurgeon The Following Activity and [...] standard right Seat cushion, 99 month(s), [facility] [id number], 09/02/24 8:22:00 EDT Transfer of Care Wound [...] depending on your insurance coverage. Check with [employer] company about what is covered. Keeping follow-up [...] 08/04/2017 Document Revised: 05/04/2018 Document Reviewed: 08/04/2017 [facility] Patient Education 2020 [facility] Additional Information VACCINATE! IT SAVES LIVES! Members of the community who have not yet received the COVID-19 vaccine and would like to receive it can visit one of [facility] vaccine clinics. There are many vaccine clinic locations within the [facility]. For locations and available times, please visit [email or web address] It is important to note that some COVID mobile vaccine clinics are held outdoors and may be canceled in rainy or stormy conditions. To learn more about pediatric vaccinations (ages 5-11), we invite you to visit the [facility] webpage. [email or web address] [email or web address] learn more about the COVID-19 vaccine, we invite you to visit the CDC website for a list of frequently asked questions.https://www.cdc.gov/coronavirus/2019-ncov/vaccines/faq.html [facility] Patient Portal Access Instructions: Stay connected with your healthcare team and access your personal medical information anytime with the [facility] Patient Portal. Please follow the directions below to create your [facility] account: 1.Access the email account you provided upon registration to the hospital/physician office.2.Look for an invitation email from [facility].3.Open the email and access the invitation link: AcceptInvitation to [facility].4.Fill in the required richards to create your account. To access your account, visit [email or web address]. Click the blue button labeled "Access Patient Portal" and then log in with the username and password that you created in the steps above. You will be able to view your test results, lab results, a summary of your visits, upcoming appointments and more. There is also a convenient messaging option where you can send secure messages to your p rovider. In addition, you will have the ability to download any documents or summaries to your computer and/or send the information securely to a physician. Remember that your healthcare information is confidential, so carefully consider who you will allowto register on the [facility] Patient Portal for access to your information. You can also access the [facility] Patient Portal on the [employer] dahlia. Simply click on "Patient Portal" and then log into your account. If you would like to receive a full copy of your medical records, please contact the [facility] Medical Records Department by calling [phone], Monday through Monday between 8 a.m. and [...] Call your local pharmacy or go to [email or web address] to find one close to you.3.Make use of household items: Use cat litter or old coffee grounds to dispose medications if other options arenot available. Mix your drugs with these household products, seal them in an airtight container andthrow it into the garbage. Call [facility]: [phone] to be sure your drugs can be [...] aware that I should contact my doctor. Patient/Pourer Bull Ladle Signature: Date/Time: Relationship to Patient: Witness Name/Signature: Date/Time: [facility]85 Physical medicine and rehab Discharge summary Date [...] in discharge valuation. She was admitted to [facility] inpatient rehab unit from [facility] stay 08/02 - 08/15 who has a history of CAD, DM2, atrial fibrillation and hypertension whopresented to the ER after noting left-sided weakness and slurred speech. Originally presented to [facility] where CT head was obtained showing no [...] with gastroenterology regarding PEG tube removal at [facility] at discharge. Repeat head CT was performed [...] Ordered -- 08/15/24 17:18:00 EDT, AMI HEATON APRN-MULTIFOCAL BUTTON GRINDER, Skin Integrity per policy Physical Exam Vitals [...] oral tablet)1 tab(s) PEG tube every day. vrgrgxqiqvyfj98 Microgram PEG tube once a day. metoprolol [...] KAMERON CARUSO MD When:Within 3-7 days Where:[address] [place] [address]- Additional Information: Please schedule follow up PCP appointment for after discharge from SNF, Bring discharge instructions with you Follow Up with RIMMA POWERS MD When:10/08/2024 04:00 PM EDT Where:[facility] ([address], [place]) Additional Information: Neurosurgeon Follow Up Appointments No [...] HA DO on 09/09/2024 01:46 PM [facility] GarciaOltlbkgf10-07-6624 Nurse Progress note Nursing GG Entered On: 09/09/2024 10:55 EDT Performed On: 09/09/2024 10:55 EDT by Abigail Rodas RN Nursing GG's OT GG Grid Eating : Not Completed Abigail Rodas RN - 09/09/2024 10:55 EDT Digitally Signed by Abigail Rodas RN on 09/09/2024 10:55 AM [facility] GarciaLymgwdla34-65-2790 Nurse Progress note Nursing GG Entered On: 09/08/2024 17:39 EDT Performed On: 09/08/2024 17:39 EDT by Rob Alarcon RN Nursing GG's OT GG Grid Eating : Not Completed Oral Hygiene : Not Completed Toilet Hygiene : Substantial/Maximal Assistance Toilet Transfer : Substantial/Maximal Assistance Rob Alarcon RN - 09/08/2024 17:39 EDT Digitally Signed by Rob Alarcon RN on 09/08/2024 05:39 PM [facility] GarciaPponrizf66-95-5682 Nurse Progress note Pt had 250ml residual, 12:30pm bolus was held! Digitally Signed by Rob Alarcon RN on 09/08/2024 12:47 PM [facility] GarciaJldmmwno18-14-2078 Physical medicine and rehab Progress note Rehab [...] and slurred speech. She originally presented to [facility] with CT of the head was obtained showed no acute hemorrhage or large territory stroke. CTA showed mid right M1 occlusion however patient was not a TNK candidate. She was then transferred to a [facility] for further management. CT of head showed [...] 80 mg 1 tab(s), PEG, Daily balsam [place]ow[place]-castor oil topical 87 mg-788 mg/g oint 60g [...] Rate64(SEP 05 16:46)64(SEP 05 16:46)85(SEP 05 09:40) DKJ551(SEP 05 16:36)138(SEP 05 16:36)H 158(SEP 05 09:52) [...] Repeat swallow test were performed continue Paez Freemichael protocol and order motor exercises and Glucerna 1.2 bolus 6 times a day with water flush. Ritalin initiated to improve alertness. Work minimize fall risk. Case discussed with spouse. Plan transition to skilled September 07 with home care services. Therapy notes reviewed Risks/benefits of meds, treatments considered. Therapy notes reviewed. Discussed with staff. PMH/ reviewed and unchanged Note: This dictation was [...] SILVINO HA DO on 09/06/2024 12:34 PM [facility] HospitalJknelcra81-91-7291 Hospital Discharge instructions Patient Education 09/05/2024 14:15:00 [...] depending on your insurance coverage. Check with [employer] company about what is covered. Keeping follow-up [...] 08/04/2017 Document Revised: 05/04/2018 Document Reviewed: 08/04/2017 [employer] Patient Education 2020 [facility] Follow Up Care 08/15/2024 08:51:25 With:RIMMA POWERS MD Address: [facility] ([address] [place] [address], [address], [place]) When:10/08/2024 16:00:00 Comments:Neurosurgeon With:JONNIE BANSAL MD Address: [facility] When: Unknown Comments:GI, No appointment needed until PEG is ready to be removed or concerns arise With:KAMERON CARUSO MD Address: [address] [facility] [place] [address]- When:3-7 days Comments:Please schedule follow up PCP appointment for after discharge from SNF, Bring discharge instructions with you Tyler Garcia 04-24-2025 Note Subjective Patient seen this morning [...] less than 3 seconds. Ongoing hemiparesis VITALS MlkunkTbjnDJFeqwuCKCsN4CFF8ZvrmJd(kg) 09/05 09:5236.3--362974TW 09/05 09:40----85----RA 09/04 23:3236.6--996696XV 09/04 21:2436.5--769209JV 09/04 16:01----72----RA 24 Hr Tmax: 36.6 at [...] SBP (mmHg) < 110, 1st dose location: [facility], 1, 08/15/24 17:09:00 EDT Active PRN [...] None Problems (6) CVA (cerebral vascular accident) (695507091) Diabetes mellitus (904163111) Dysphagia (54722563) Hyperlipidemia (12092510) Hypertension (1895033050) Osteoarthritis (8022454626) ASSESSMENT/PLAN: Right basal ganglia hemorrhage, status post [...] CATHERINE NEWMAN on 09/05/2024 04:55 PM Tyler Tstxqivr21-67-0048 Physical medicine and rehab Progress note Subjective [...] area Neuro: Left upper extremity hemiparesis VITALS ZuuevgKcivITKvudnQNSxY5KQG8HajlRv(kg) 09/04 23:3236.6--536627SE 09/04 21:2436.5--514480JQ 09/04 16:01----72----RA 09/04 12:10--------97RA 09/04 10:5435.9--836757FV 24 Hr Tmax: 36.6 at 09/04 23:32 [...] tab(s), PEG, Daily, 08/15/24 17:09:00 EDT balsam Etowah-castor oil topical (Venelex 788 mg-87 mg/g topical [...] SBP (mmHg) < 110, 1st dose location: [facility], 1, 08/15/24 17:09:00 EDT Active PRN [...] 2 minutes, REPEAT x1., 1st dose location: [facility], 0, 08/15/24 1... glucose (Dextrose 50% [...] None Problems (6) CVA (cerebral vascular accident) (060893451) Diabetes mellitus (951421270) Dysphagia (07420304) Hyperlipidemia (36731577) Hypertension (4252894075) Osteoarthritis (1904744374) ASSESSMENT/PLAN: Acute right basal ganglia hemorrhage with [...] NANDO HUTTON DO on 09/05/2024 10:12 AM [facility] HospitalSwzvkyrj96-04-0615 Physical medicine and rehab Progress note Rehab [...] and slurred speech. She originally presented to [facility] with CT of the head was obtained showed no acute hemorrhage or large territory stroke. CTA showed mid right M1 occlusion however patient was not a TNK candidate. She was then transferred to a [facility] for further management. CT of head showed [...] Rate64(SEP 03 15:52)64(SEP 03 15:52)90(SEP 03 08:28) WNP111(SEP 04 05:38)112(SEP 04 05:38)127(SEP 03 08:00) DBP70(SEP [...] SILVINO HA DO on 09/04/2024 11:55 AM [facility] HospitalOmrwrcyb48-04-2382 Note Subjective Patient states she is doing [...] area Neuro: Left upper extremity hemiparesis VITALS YplmknZyxaQOBglqqEETqU0QWK0JegfUr(kg) 09/03 21:4136.4--375886JR 09/03 15:52----64----RA 09/03 08:46 RA 09/03 08:28----90---- 09/03 08:0036.4--369421AM 24 Hr Tmax: 36.4 at 09/03 21:41 [...] tab(s), PEG, Daily, 08/15/24 17:09:00 EDT balsam Etowah-castor oil topical (Venelex 788 mg-87 mg/g topical [...] SBP (mmHg) < 110, 1st dose location: [facility], 1, 08/15/24 17:09:00 EDT oxybutynin (oxybutynin [...] 2 minutes, REPEAT x1., 1st dose location: [facility], 0, 08/15/24 1... glucose (Dextrose 50% [...] None Problems (6) CVA (cerebral vascular accident) (293102691) Diabetes mellitus (055079319) Dysphagia (90447650) Hyperlipidemia (54872426) Hypertension (1409207710) Osteoarthritis (7871597857) ASSESSMENT/PLAN: Acute right basal ganglia hemorrhage with [...] HUTTON DO on 09/05/2024 08:57 AM Tyler GarciaKulpqvih04-17-6286 Note Subjective Patient states that she is [...] area Neuro: Left upper extremity hemiparesis VITALS VkwwczMyulANParstVTZeU9BIA7FlnuXd(kg) 09/03 00:2636.3--495758FE 09/02 21:5136.2--001683RD 09/02 16:56----88--98RA 09/02 10:40 RA 09/02 09:0936.0--087703NM 24 Hr Tmax: 37.0 at 09/02 05:55 [...] SBP (mmHg) < 110, 1st dose location: [facility], , 08/15/24 17:09:00 EDT oxybutynin (oxybutynin [...] 2 minutes, REPEAT x1., 1st dose location: [facility], 0, 08/15/24 1... glucose (Dextrose 50% [...] None Problems (6) CVA (cerebral vascular accident) (597795522) Diabetes mellitus (787632367) Dysphagia (43318017) Hyperlipidemia (85354639) Hypertension (8460813263) Osteoarthritis (1246551752) ASSESSMENT/PLAN: Acute right basal ganglia hemorrhage with [...] HUTTON DO on 09/05/2024 08:57 AM Tyler Glwbjomf08-00-9183 Note* Exam Date Time Procedure Performing Provider Status 09/02/24 2:[address] Head or Brain w/o Contrast Brenda MCCLELLAN MD; Auth (Verified) [id number] ORIGINAL HISTORY: Lethargy COMPARISON: No TECHNIQUE: Routine [...] Date: 09/02/2024 3:10:44 PM Ordering Provider: SILVINO Frenchltman Rzsqsihy06-55-7275 Telephone encounter Note* Telephone Encounter - Fouzia Miller LPN - 08/30/2024 10:09 AM EDT Marya with [facility] notified. [facility]04-18-2025 Miscellaneous Notes* Telephone Encounter - Fouzia Miller LPN - 08/30/2024 10:09 AM EDT Marya with [facility] notified. * Telephone Encounter - Mj Glover APRN.MULTIFOCAL BUTTON GRINDER - 08/30/2024 9:19 AM EDT Please let know that Dr. Caruso's team will follow HH orders. Okay to proceed. Mj Glover APRN.GARRETT * Telephone Encounter - Jaiden Paulino RN - 08/30/2024 9:07 AM EDT [facility] reports patient was in [facility] with dx: stroke, and transferred to [facility]. [facility] with [facility] PT OT [facility] & [facility]. Asking if pcp agreeable to follow for HHC. Please phone Marya with verbal: [phone] documented in this encounterOhiohealth [facility]04-18-2025 Telephone encounter Note * Telephone Encounter - Mj Glover APRN.CNP - 08/30/2024 9:19 AM EDT Please let know that Dr. Caruso's team will follow HH orders. Okay to proceed. Mj Glover APRN.GARRETT [facility]04-18-2025 Telephone encounter Note* Telephone Encounter - Jaiden Paulino RN - 08/30/2024 9:07 AM EDT [facility] reports patient was in [facility] with dx: stroke, and [facility] to home with [facility] SN PT OT ST & [facility]HAide. Asking if pcp agreeable to follow for HHC. Please phone Marya with verbal: [phone] [facility]04-14-2025 Note REFERRING PHYSICIAN: Silvino Ha DO. CONSULTING PSYCHOLOGIST: Matthew Gibson, PhD. REASON FOR REFERRAL: Neuropsychological exam. HISTORY OF PRESENT ILLNESS: Ms. Acuna is a 78-year-old right-handed white female admitted to [facility] from [facility] on 08/15/2024 after developing left-sided weakness and slurred speech. Initially seen at [facility] where brain CT was negative.CTA then showed [...] mild concussions suffered after a career in [employer]. No residual deficits reported. No other EVENT MARKETING MANAGER injuries or illnesses. MENTAL HEALTH HISTORY: No [...] of NPO. and Mrs. Acuna live in [place]. 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 She has a high school diploma from her hometown in [place], [place]. TEST RESULTS: I used the Cognistat, [...] be determined. MATTHEW GIBSON, PhD GM/NTS JOB#: [id number] DICTATION ID#: [id number] Digitally Signed by MATTHEW GIBSON PhD on 08/27/2024 08:21 AM [facility] GarciaQofkexdi38-07-1587 Note* Exam Date Time Procedure Performing Provider Status 08/25/24 1:46 PM XR Hand and Wrist 6 Views Left Buck DUNNE DO; Auth (Verified) [id number] ORIGINAL EXAMINATION: 3 XRAY VIEWS OF THE [...] Views Left JAMAR DUNNE ; Auth (Verified) [id number] ORIGINAL EXAMINATION: TWO XRAY VIEWS OF THE [...] 08/25/2024 2:26:45 PM Ordering Provider: JACKLYN Scott [id number] Note* Exam Date Time Procedure Performing Provider Status 08/25/24 1:43 PM XR Humerus Minimum 2 Views Left JAMAR DUNNE ; Auth (Verified) [id number] ORIGINAL EXAMINATION: TWO XRAY VIEWS OF THE [...] 1 View Contributor_system, FUJ I; Auth (Verified) [id number] ORIGINAL EXAMINATION: ONE XRAY VIEW OF THE [...] Plan noteExtracted from: Title:Clinical Document Author:EZEQUIEL HUSTON RN-MULTIFOCAL BUTTON GRINDER Date:08/16/24 Acute Inpatient Rehab Histor y and Physical Date of Service: 08/16/2024 Date of Admission: 08/15/2024 Attending Physician: Dr. Ha [employer] 1.1 left body involvement, right brain stroke Etiologic Diagnosis Hemorrhagic infarct involving right basal ganglia, mass effect with effacement of right lateral ventricle, tiny infarct in right cerebellum History of Present Illness 78-year-old female noted to home in inpatient rehab from [facility] stay 08/02 - 08/15 who is past medical history of coronary artery disease, diabetes mellitus type 2, atrial relation, hypertension, osteoarthritis, and hyperlipidemia who presented to the emergency room with noted left-sided weakness and slurred speech. She originally presented to [facility] with CT of the head was obtained showed no acute hemorrhage or large territory stroke. CTA showed mid right M1 occlusion however patient was not a TNK candidate. She was then transferred to a [facility] for further management. CT of head showed [...] feedings. Patient deemed medically stable transferred to [facility] inpatient rehab unit for physical and occupational [...] with spouse, first- floor set up. Primary Director Mba: Self. Safe place to go: Yes. Lives [...] Rate80(AUG 15 20:06)80(AUG 15 20:06)80(AUG 15 20:06) JGC276(AUG 16 00:03)128(AUG 16 00:03)140(AUG 15 17:47) DBP76(AUG 16 00:03)76(AUG 16 00:03)80(AUG 15 17:47) 36hr Labs 08/15 1805 Blood Glucose, Kqhdcehkn079H Blood Glucose, Jhpkyclbc980I Blood Glucose TSee Flowsheet Assessment/Plan Debility and [...] it is both accurate and complete. [facility] 04-04-2025 Physical medicine and rehab Consult note INPATIENT REHAB MEDICAL CONSULT DATE OF ADMISSION: 08/16/2024 CC: Acute right basal hemorrhage HISTORY OF PRESENT ILLNESS: This is a 78-year-old female admitted to [facility] inpatient rehab unit from [facility] stay 08/02 - 08/15 who has a history of CAD, DM2, atrial fibrillation and hypertension who presented to the ER after notingleft-sided weakness and slurred speech. Originally presented to [facility] where CT head was obtained showing no [...] was deemed medically stable and transferred to [facility] inpatient rehab unit for physical and occasional [...] Rate80(AUG 15 20:06)80(AUG 15 20:06)80(AUG 15 20:06) GNU883(AUG 16 00:03)128(AUG 16 00:03)140(AUG 15 17:47) DBP76(AUG [...] reviewed. 36hr Labs 04/03 1805 Blood Glucose, Wvqbnlwbq055G Blood Glucose, Kmrvwetgy872S Blood Glucose TSee Flowsheet ASSESSMENT AND PLAN: [...] will follow during acute rehabilitation [facility] with the goal [...] by CATHERINE NEWMAN on 08/17/2024 04:53 PM [facility] HospitalLetxggje97-50-0770 Physical medicine and rehab History and physical [...] noted to home in inpatient rehab from [facility] stay 08/02 -08/15 who is past medical history of coronary artery disease, diabetes mellitus type 2, atrial relation, hypertension, osteoarthritis, and hyperlipidemia who presented to the emergency room with noted left-sided weakness and slurred speech. She originally presented to [facility] with CT of the head was obtained showed no acute hemorrhage or large territory stroke. CTA showed mid right M1 occlusion however patient was not a TNK candidate. [facility] head showed acute [...] feedings. Patient deemed medically stable transferred to [facility] inpatient rehab unit for physical and occupational [...] with spouse, first- floor set up. Primary Director Mba: Self. Safe place to go: Yes. Lives [...] Rate80(AUG 15 20:06)80(AUG 15 20:06)80(AUG 15 20:06) QIU405(AUG 16 00:03)128(AUG 16 00:03)140(AUG 15 17:47) DBP76(AUG 16 00:03)76(AUG 16 00:03)80(AUG 15 17:47) 36hr Labs 08/15 1805 Blood Glucose, Bysviqiru205Y Blood Glucose, Ehciupktn969D Blood Glucose TSee Flowsheet Assessment/Plan Debility and [...] EZEQUIEL HUSTON on 08/22/2024 05:17 AM [facility] GarciaJbtteoep42-27-9661 Miscellaneous Notes* Nursing Notes - Robson Steel [...] pacing over x3-5 sessions Outcome: Ongoing Problem: BUILDING CUSTODIAN - Cognition Goal: Orientation Log - Patient [...] pacing over x3-5 sessions Outcome: Ongoing Problem: BUILDING CUSTODIAN - Cognition Goal: Orientation Log - 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 - If used fci, initial PEG should be changed in 6-12 months depending on tube condition. - No plans for repeat outpatient EGD at this time based on clinical status Jonnie Mccabe MD Division of Gastroenterology, Hepatology, and Nutrition Clinical Fellow PGY-4 Pager: [phone] * Plan of Care - Manisha Cheema [...] or what the specific medication was. DaughterKeagan [phone] would be able to answer questions. Catherine [...] performed by Shaila Stringer RN and Raysa White, RN. Skin Assessment: Skin within defined limits:Yes [...] oropharyngeal swallow function to most appropriately guide BUILDING CUSTODIAN plan of care Outcome: Met Goal: Bolus [...] readiness for diet advancement Outcome: Met Problem: BUILDING CUSTODIAN - Cognition Goal: Orientation Log - Patient [...] better assess deficits and most appropriately guide BUILDING CUSTODIAN plan of care Outcome: Met Goal: Attention: [...] of Care: 1. Diet: NPO. Advancement per team/BUILDING CUSTODIAN recommendation 2. Ordered TF: Glucerna 1.5 @ [...] readiness for diet advancement Outcome: Ongoing Problem: BUILDING CUSTODIAN - Cognition Goal: Orientation Log - Patient [...] better assess deficits and most appropriately guide BUILDING CUSTODIAN plan of care Outcome: Ongoing * Nursing Notes - Aniyah Torre RN - 08/02/2024 6:13 PM EDT [facility] from [place] a dual RN initial assessment of skin condition was performed by Aniyah Torre RN and Amirah ENRIQUEZ. Skin Assessment: Skin not within defined limits. - Pressure Injury suspected: Yes - Coccyx LDA Added:Yes Aniyah Torre RN * Nursing Notes - Sophie Jenkins RN - 08/02/2024 5:32 PM EDT [facility] whom denies any questions. No change from previous assessment. Pt transferred to [facility] via cart accompanied by Denae ENRIQUEZ. T [...] under emergency consent. SURGEON(S): Prema Ramos MD BACKGROUND INVESTIGATOR(S): None ANESTHESIA: Monitored anesthesia care DESCRIPTION OF [...] Freeclimb 70/Serjio 7 was advanced over a AngioChem microcatheter which was advanced over a synchro [...] - 08/02/2024 3:26 PM EDT Lindsay Acuna ([id number]) PRE OPERATIVE DIAGNOSIS Cerebral infarction due to [...] - Primary ANESTHESIOLOGIST Anesthesiologist: Tameka Ruth MD MAILROOM COURIER: Bebo Barboza APRN-MAILROOM COURIER SURGICAL STAFF Publisher Assistant: Rachell Ruffin RN Compliance Vice President: Paulina Muñiz; Radha Morales COMPLICATIONS None ESTIMATED BLOOD LOSS Minimal SPECIMENS No specimen sent * No specimens in log * Prema Ramos MD August 02, 2024 3:26 PM documented in this [facility]OS[facility] History of Present illness Narrative* OWEN Benavides - 08/15/2024 9:01 AM EDT Care Management Discharge Note Selected Continued Care - Admitted Since 08/02/2024 Destination Coordination complete. Service Provider Services Address Phone Fax Patient Preferred [place] [id number] [facility] [address] -- -- Internal Comment last updated by OWEN Benavides 08/15/2024 0901 Report fax: [phone] Transport Request Mode of Transfer: [facility] Name of Discharge Transport Company: [employer] Discharge Transport ETA: 08/15/2024 @ 1030 Patient medically stable for discharge per physician/medical team. Pt has neurology appointment scheduled. Pt/ to schedule appointment with PCP. Patient/Pourer Bull Ladle remain in agreement withthe discharge plan. BULMARO Allen Twitchell Operator * OWEN Benavides - 08/14/2024 3:17 [...] numbersfor RN report tomorrow morning. BULMARO Allen Twitchell Operator * Marybeth Ayoub - 08/14/2024 2:51 PM EDT Care Management Progress Note Transportation for discharge arranged Mode of Transfer: (P) [facility] Name of Discharge Transport Company: (P) [facility] ETA: (P) 08/15/2024 @ 1030 Pick-up from [facility] 1032/A Destination [facility] [address] [facility] [address] OWEN Morrell Twitchell Operator [employer] [phone] * Jazzy Aguiar - 08/14/2024 9:47 AM [...] position Mobility Assessment/Intervention: Supine to Sit Mobility Gove Level: Supine->Sit: moderate assist (50% patient effort) Physical Assist: Supine->Sit: 2 person assist Bed Features/Set-up: Supine->Sit: Head of bed elevated, Use of bed rail Skilled Rationale: Verbal cues, Tactile cues, Hand placement, Positioning, Technique of activity Skilled Intervention/Details: Supine->Sit: Cues for technique of transfer and pt needing increased assistance for managing legs and trunk to EOB positioning Transfer Assessment/Intervention: Sit to Stand Transfer Gove Level: Sit->Stand: moderate assist (50% patient effort) [...] hand held support Stand to Sit Transfer Gove Level: Stand->Sit: moderate assist (50% patient effort) Physical Assist: Stand->Sit: 2 person assist Assistive Device: Stand->Sit: gait belt, hand held assist Skilled Rationale: Verbal cues, Tactile cues, Hand placement, Positioning, Controlled descent for sitting Skilled Intervention/Details: Stand->Sit: Cues for positioning with BSC and recliner, pt provided bilat hand held support and needing increased support for managing a controlled descent Bed-Chair Transfer Gove Level: Bed<->Chair: maximum assist (25% patient effort) [...] managing L side during transfer Toilet Transfer Gove Level: Toilet: moderate assist (50% patient effort) [...] upright gaze when standing Outcome Score(s): CURRENT AM-PAC Daily Activity Inpatient Short Form Putting on/Taking Off Lower Body Clothin - Total Assistance Bathin - A Lot of Assistance Toiletin - Total Assistance Putting on/Taking Off Upper Body Clothin - A Little Assistance Groomin - A Little Assistance Eatin - Total Assistance CURRENT AM-[facility] Activity Raw Score: 11 CURRENT AM-PAC Activity [...] coordination Assisted by during session: OT Teagan Owend PPE used during patient interaction: gloves Patient [...] person, Oriented to place, Oriented to situation ("[place]" "hospital" "September" "2024" "stroke") Following Commands: Follows [...] blocking Mobility Assessment/Intervention: Supine to Sit Mobility Gove Level: Supine->Sit: moderate assist (50% patient effort) [...] sitting) Transfer Assessment/Intervention: Sit to Stand Transfer Gove Level: Sit->Stand: moderate assist (50% patient effort) Physical Assist: Sit->Stand: 2 person assist Assistive Device: Sit->Stand: gait belt Skilled Rationale: Arm in arm, Patellar block, Ischial assist, Facilitate anterior shift, Full extension to upright positioning/posture, Finding/maintaining midline positioning Skilled Intervention/Details: Sit->Stand: repeat cues to avoid significant L lean with improvement last standing. x1 from EOB, x2 from BSC Stand to Sit Transfer Gove Level: Stand->Sit: moderate assist (50% patient effort) Physical Assist: Stand->Sit: 2 person assist Assistive Device: Stand->Sit: gait belt Skilled Rationale: Arm in arm, Controlled descent for sitting Skilled Intervention/Details: Stand->Sit: last trial assisted R hand to recliner arm rest and ongoing cues for wt shift to R Bed-Chair Transfer Gove Level: Bed<->Chair: maximum assist (25% patient effort) [...] Assessment/Intervention: Stairs Assessment/Intervention: Outcome Score(s): CURRENT [facility] Basic Mobility Inpatient Short Form Turning [...] a railin - Total Assistance CURRENT [facility] Mobility Raw Score: 8 CURRENT [facility] Mobility Functional Limitation: 86.62% Impaired in [...] 10 Treating Therapist: Shaina Rosales PT, DPT [id number] 08/14/2024 Additional Details: PT Co-Eval/Treatment Information Co-evaluation/co-treatment [...] on the below outcome measures/assessment score(s) and BUILDING CUSTODIAN clinicaljudgment, discharge destination recommendation is: IPR Barriers to discharge home: 1:1 assist needed for IADL's including medication management and finances Supporting factors for discharge setting: Impaired swallow function limiting nutritional status andsafety with oral intake, Impaired cognitive skills limiting safety/insight Acute BUILDING CUSTODIAN Outcomes Tracking Communicate basic wants and needs?: [...] independent carry over. Strong family support. Ongoing BUILDING CUSTODIAN s indicated. Subjective information: Alert, present. SO referenced his notes from yesterday and reportedcarry over of exercises yesterday. Patient with zero recall Pain: Nonverbal indicator not present Precautions: Patient Safety Communication Prior to Visit: Nursing Lines/Tubes/Drains (Rehab Status): Telemetry, Tube feed Existing Precautions/Restrictions: fall Respiratory Status: O2 Sat (%): 96 % (08/14 0711) O2 Device: room air (08/14 0947) Acute BUILDING CUSTODIAN Goals Plan of Care by RIKI Blancas [...] RoM to achieve technique. Outcome: Ongoing Problem: BUILDING CUSTODIAN - Cognition Goal: Orientation Log - Patient [...] next session: 08/14 - ongoing exercises, education BUILDING CUSTODIAN Outcomes: FOIS 2 Speech Language Pathologist: RIKI [...] of session: none altered Needs in reach. BUILDING CUSTODIAN Evaluation and Treatment Time Speech Therapy - Individual 96534: 14 Swallowing Dysfunction Treatment 70232: 14 Upon discontinuation of Acute Care Speech [...] on the below outcome measures/assessment score(s) and BUILDING CUSTODIAN clinicaljudgment, discharge destination recommendation is: Inpatient Rehab Facility Barriers to discharge home: 1:1 assist needed for IADL's including medication management and finances Supporting factors for discharge setting: Impaired swallow function limiting nutritional status andsafety with oral intake, Impaired cognitive skills limiting safety/insight Acute BUILDING CUSTODIAN Outcomes Tracking Communicate basic wants and needs?: [...] O2 Device: room air (08/13 710) Acute BUILDING CUSTODIAN Goals Plan of Care by Tanja Cason, BUILDING CUSTODIAN at 08/13/2024 11:10 AM Version 1 of [...] 10 reps this session. Outcome: Ongoing Problem: BUILDING CUSTODIAN - Cognition Goal: Orientation Log - Patient [...] considerations: Cognition Patient Instruction/Education comments: Role of BUILDING CUSTODIAN, presence and normalized frustration with cognitive-communicative impairments. Focused on memory this date and that patient does not recall education so perseverative questions are normal. Reviewed intermittent silent aspiration from MBS last weekand ongoing signs of dysphagia this session, will plan to coordinate timing for repeat instrumentalwith care team Plan for next session: 08/13 -fair BUILDING CUSTODIAN Outcomes: FOIS 2 Speech Language Pathologist: RIKI [...] of session: none altered Needs in reach. BUILDING CUSTODIAN Evaluation and Treatment Time Speech Therapy - Individual 63539: 12 Swallowing Dysfunction Treatment 09209: 13 Upon discontinuation of Acute Care Speech Therapy Services or patient discharge from the hospital this note represents the current Speech Therapy Discharge Summary * OWEN Benavides - 08/12/2024 3:21 PM EDT Placement Plan Expected Discharge Date: 08/14/2024 Referred Level of Care: IPR Barriers: Medical Readiness & Precertification Current Referrals and Status 1. [facility]-accepted [facility] started precertification today. BULMARO Allen Twitchell Operator * Jazzy Aguiar - 08/12/2024 10:46 [...] sinkside Mobility Assessment/Intervention: Supine to Sit Mobility Gove Level: Supine->Sit: moderate assist (50% patient effort) [...] positioning Transfer Assessment/Intervention: Sit to Stand Transfer Gove Level: Sit->Stand: maximum assist (25% patient effort) [...] maintaining upright posture Stand to Sit Transfer Gove Level: Stand->Sit: maximum assist (25% patient effort) Physical Assist: Stand->Sit: 2 person assist Assistive Device: Stand->Sit: gait belt, hand held assist Skilled Rationale: Verbal cues, Tactile cues, Hand placement, Positioning, Controlled descent for sitting Skilled Intervention/Details: Stand->Sit: Cues for positioning with recliner and using BUEs to help with appropriate positoining of hips in chair Bed-Chair Transfer Gove Level: Bed<->Chair: maximum assist (25% patient effort) Physical Assist: Bed<->Chair: 2 person assist Assistive Device: Bed<->Chair: gait belt Skilled Rationale: Verbal cues, Tactile cues, Hand placement, Positioning, Technique of activity Skilled Intervention/Details: Bed<->Chair: x1 from EOB to recliner on R. Pt needing increasedsupport for managing L side and sequencing steps for appropriate positioning with recliner Outcome Score(s): CURRENT [facility] Daily Activity Inpatient Short Form Putting on/Taking Off Lower Body Clothin - Total Assistance Bathin - A Lot of Assistance Toiletin - Total Assistance Putting on/Taking Off Upper Body Clothin - A Lot of Assistance Groomin - A Lot of Assistance Eatin - Total Assistance CURRENT [facility] Activity Raw Score: 9 CURRENT [facility] Activity Functional Limitation/Modifier: 79.59% Currently Impaired [...] speech and L hemiplegia. She presented to [facility] and was seen on Telestroke, NIHSS [...] goal TF volume. Pt last assessed by BUILDING CUSTODIAN 08/08 with recommendations for NPO. S/p PEG [...] chips. Will also increase free water flushes. BUILDING CUSTODIAN to see pt tomorrow. Nutrition Focused Physical Exam: Nutrition Focused Physical Exam Completed?: completed Subcutaneous Fat Loss: Orbital Region (Orbital Fat Pads): WDL Cheek Region (Buccal Fat Pads): WDL Upper Arm Region (Triceps): WDL Thoracic and Lumbar Region (Ribs, Lower Back, Midaxillary Line): WDL Muscle Wasting: Buddhism Region (Temporalis Muscle): deferred (lac over eyebrow) [...] kg (172 lb) 06/26/24 78.9 kg (174 lb)-[facility] 05/31/24 79 kg (174 lb 2.6 oz)-[facility] 11/28/23 80.6 kg (177 lb 9.6 oz)-[facility] 09/29/23 84 kg (185 lb)-[facility] meds reviewed: Scheduled: Reviewed, includes insulin, [...] Needs: Weight Used: 61 kg (IBW) EEN: 6915-2488 kcal/day (25-30 kcal/kg) EPN: 73-92 g/day (1.2-1.5 g/kg) EFN: 1830 mL/day (30 mL/kg) or per primary team Malnutrition Statement: Does the patient meet criteria for malnutrition: No *Based on [employer] Academy and ASPEN Indicators to Diagnose Malnutrition (AAIM) criteria (2012) Tianna Murray RD, LD, [facility] Pager #[phone] * Katie Ramos, PT - 08/12/2024 10:22 [...] standing. Mobility Assessment/Intervention: Supine to Sit Mobility Gove Level: Supine->Sit: moderate assist (50% patient effort) Physical Assist: Supine->Sit: 2 person assist Bed Features/Set-up: Supine->Sit: Head of bed elevated Skilled Rationale: Verbal cues, Tactile cues, Hand placement, Technique of activity Skilled Intervention/Details: Supine->Sit: verbal/tactile cues for instruction on transfer technique and mod A x 2 for LE and trunk management. Transfer Assessment/Intervention: Sit to Stand Transfer Gove Level: Sit->Stand: maximum assist (25% patient effort) Physical Assist: Sit->Stand: 2 person assist Assistive Device: Sit->Stand: gait belt Skilled Rationale: Verbal cues, Tactile cues, Hand placement, Technique of activity Skilled Intervention/Details: Sit->Stand: x2 trials with verbal/tactile cues for instruction on transfer technique, hand placement, and blocking left knee. Bed-Chair Transfer Gove Level: Bed<->Chair: maximum assist (25% patient effort) Physical Assist: Bed<->Chair: 2 person assist Assistive Device: Bed<->Chair: gait belt Skilled Rationale: Verbal cues, Tactile cues, Hand placement, Technique of activity Skilled Intervention/Details: Bed<->Chair: x1 trial from EOB to chair to the right. Verbal/tactile cues for instruction on transfer technqiue, blocking left knee. Outcome Score(s): CURRENT [facility] Basic Mobility Inpatient Short Form Turning over in bed: 2 - A Lot of Assistance Moving from lying on back to sittin - Total Assistance Moving to and from bed to chair: 1 - Total Assistance Sitting/standing from chair: 1 - Total Assistance Walk in hospital room: 1 - Total Assistance Climbing 3-5 steps with a railin - Total Assistance CURRENT [facility] Mobility Raw Score: 7 CURRENT [facility] Mobility Functional Limitation: 92.36% Impaired in [...] Physical Therapy Discharge Summary. * Radha Gr APRN-MULTIFOCAL BUTTON GRINDER - 08/11/2024 7:15 AM EDT NEUROVASCULAR STROKE SERVICE Daily Progress Note IDENTIFYING INFORMATION Lindsay Acuna MR# [id number] 08/11/2024 HISTORY OF PRESENT ILLNESS Lindsay Acuna is a 78 y.o. female with PMH significant for CAD, HTN, HLD, T2DM, Afib (on Eliquis, although patient reports she has not been taking it) who presents with L hemiplegia, slurred speech. LKW 0915 on 08/02, later found down with slurred speech and L hemiplegia. She presented to [facility] and was seen on Telestroke, NIHSS [...] 2b revascularization. INTERVAL HISTORY 08/05: [place] MBS tomorrow 08/06: Failed MBS. Increased lopressor. [...] today 08/11 -Rate controlled on metoprolol Dysphagia: -BUILDING CUSTODIAN following -NPO, DHT + TF -Failed MBS [...] [facility] when medically ready Radha Gr APRN-MULTIFOCAL BUTTON GRINDER 08/11/2024 10:17 AM VITAL SIGNS Temp: [97.2 [...] for specific therapeutic recommendations, please see the quality assurance director report of the speech pathologist. Examination performed [...] and neurological examinations as recorded by the ACUTE CARE NURSE repeated and confirmed. I have personally reviewed [...] Progress Note IDENTIFYING INFORMATION Lindsay Acuna MR# [id number] 08/10/2024 HISTORY OF PRESENT ILLNESS Lindsay Acuna is a 78 y.o. female with PMH significant for CAD, HTN, HLD, T2DM, Afib (on Eliquis, although patient reports she has not been taking it) who presents with L hemiplegia, slurred speech. LKW 0915 on 08/02, later found down with slurred speech and L hemiplegia. She presented to [facility] and was seen on Telestroke, NIHSS [...] 2b revascularization. INTERVAL HISTORY 08/05: [place] MBS tomorrow 08/06: Failed MBS. Increased lopressor. [...] as above -Rate controlled on metoprolol Dysphagia: -BUILDING CUSTODIAN following -NPO, DHT + TF -Failed MBS [...] [facility] when medically ready Radha Gr, JASIEL-MULTIFOCAL BUTTON GRINDER 08/10/2024 7:14 AM VITAL SIGNS Temp: [97.4 [...] for specific therapeutic recommendations, please see the quality assurance director report of the speech pathologist. Examination performed [...] skin and external bumper. - If used long wall mining machine tender, PEG should be changed every 3-6 months [...] Hepatology, and Nutrition Clinical Fellow PGY-4 Pager: [phone] For follow up questions regarding this patient 7am to 5pm, contact the IBD consults fellow or DAHLIA on [employer]. [facility]--> Internal Medicine--> Gastroenterology, Hepatology, & Nutrition--> IBD Consult Service Fel Day OR IBD Consult Service DAHLIA Day For urgent/stat calls or new consults 5pm to 7am or all day on the weekend, please page the on-callGI fellow on [employer]. [facility]--> Internal Medicine--> Gastroenterology, Hepatology, & Nutrition--> [...] CM for assistance as needed (8:00am-4:30pm) BASH: [phone] Maria: [phone] Johan: [phone] Ross: [phone] For Social Work assistance for the weekend, please contact for assistance as needed (8:00am - 4:30pm): BASH: [phone] Maria: [phone] Johan: [phone] Ross: [phone] * Radha Gr APRN-GARRETT - 08/09/2024 8:07 AM EDT NEUROVASCULAR STROKE SERVICE Daily Progress Note IDENTIFYING INFORMATION Lindsay Acuna MR# [id number] 08/09/2024 HISTORY OF PRESENT ILLNESS Lindsay Acuna is a 78 y.o. female with PMH significant for CAD, HTN, HLD, T2DM, Afib (on Eliquis, although patient reports she has not been taking it) who presents with L hemiplegia, slurred speech. TOREYW 0915 on 08/02, later found down with slurred speech and L hemiplegia. She presented to [facility] and was seen on Telestroke, NIHSS [...] 2b revascularization. INTERVAL HISTORY 08/05: [place] MBS tomorrow 08/06: Failed MBS. Increased lopressor. [...] as above -Rate controlled on metoprolol Dysphagia: -BUILDING CUSTODIAN following -NPO, DHT + TF -Failed MBS [...] to [facility] when medically ready Rahda Gr, FIRE MANAGER-MULTIFOCAL BUTTON GRINDER 08/09/2024 8:07 AM VITAL SIGNS Temp: [97.3 [...] for specific therapeutic recommendations, please see the quality assurance director report of the speech pathologist. Examination performed by ARCADOI Nicole, under the direct supervision of Gerry [...] on the below outcome measures/assessment score(s) and BUILDING CUSTODIAN clinicaljudgment, discharge destination recommendation is: Inpatient Rehab Facility Acute BUILDING CUSTODIAN Outcomes Tracking Communicate basic wants and needs?: [...] pressions and introduction to effortful swallow exercise. BUILDING CUSTODIAN provided education regarding recommendation of NPO given [...] constraints (transport arrived for pt's CT scan). BUILDING CUSTODIAN will follow as able. Subjective information: Patient upright in chair, at bedside. Agreeable to BUILDING CUSTODIAN session. Pain: General Pain Documentation (Adult, OB, [...] room air Flow (L/min): [3] 3 Acute BUILDING CUSTODIAN Goals Plan of Care by RIKI Penaloza [...] phsyiology, risks of aspiration pneumonia). Educated regarding BUILDING CUSTODIAN role in swallow rehab and future POC Plan for next session: 08/06: cog tx and dysphagia exercises BUILDING CUSTODIAN Outcomes: FOIS: 1 Speech Language Pathologist: RIKI Penaloza Time In: 1310 Time Out: 1330 Total Visit Time: 20 minutes Total Treatment Time (skilled, billable minutes): 20 minutes Non-billable assistance during session: NA Assisted by during session: NA PPE used during patient interaction: gloves Patient location/status at end of session: chair Patient alarms at end of session: none altered Needs in reach. BUILDING CUSTODIAN Evaluation and Treatment Time Swallowing Dysfunction Treatment 31108: 20 Upon discontinuation of Acute Care Speech [...] feedback Mobility Assessment/Intervention: Supine to Sit Mobility Gove Level: Supine->Sit: moderate assist (50% patient effort) Physical Assist: Supine->Sit: 2 person assist Bed Features/Set-up: Supine->Sit: Use of bed rail, Head of bed elevated Skilled Rationale: Sequencing, Verbal cues, Hand placement, Positioning Skilled Intervention/Details: Supine->Sit: increased time/cues Transfer Assessment/Intervention: Sit to Stand Transfer Gove Level: Sit->Stand: moderate assist (50% patient effort) Physical Assist: Sit->Stand: 2 person assist Assistive Device: Sit->Stand: gait belt, hand held assist Skilled Rationale: Positioning, Sequencing, Hand placement, Verbal cues Skilled Intervention/Details: Sit->Stand: Pt educated in sit to stand transfers x 2 attempts, one from EOB and one from chair Bed-Chair Transfer Gove Level: Bed<->Chair: maximum assist (25% patient effort) [...] Assessment/Intervention: Stairs Assessment/Intervention: Outcome Score(s): CURRENT [facility] Basic Mobility Inpatient Short Form Turning [...] a railin - Total Assistance [facility]RENT [facility] Mobility Raw Score: 8 CURRENT [facility] Mobility Functional Limitation: 86.62% Impaired in [...] chair alarm Needs in reach. Time In: 09 Time [...] positioning Mobility Assessment/Intervention: Supine to Sit Mobility Gove Level: Supine->Sit: moderate assist (50% patient effort) [...] positioning Transfer Assessment/Intervention: Sit to Stand Transfer Gove Level: Sit->Stand: moderate assist (50% patient effort) Physical Assist: Sit->Stand: 2 person assist Assistive Device: Sit->Stand: gait belt, hand held assist Skilled Rationale: Verbal cues, Tactile cues, Hand placement, Positioning, Technique of activity Skilled Intervention/Details: Sit->Stand: x1 from EOB, x1 from recliner. Cues for technique and assuming an upright posture once standing Stand to Sit Transfer Gove Level: Stand->Sit: moderate assist (50% patient effort) Physical Assist: Stand->Sit: 2 person assist Assistive Device: Stand->Sit: gait belt, hand held assist Skilled Rationale: Verbal cues, Tactile cues, Hand placement, Positioning, Controlled descent for sitting Skilled Intervention/Details: Stand->Sit: Cues for positioning with recliner and using arms to help with controlled descent into chair Bed-Chair Transfer Gove Level: Bed<->Chair: maximum assist (25% patient effort) [...] position with chair. Outcome Score(s): CURRENT [facility] Daily Activity Inpatient Short Form Putting on/Taking Off Lower Body Clothin - Total Assistance Bathin - A Lot of Assistance Toiletin - Total Assistance Putting on/Taking Off Upper Body Clothin - A Lot of Assistance Groomin - A Lot of Assistance Eatin - Total Assistance CURRENT [facility] Activity Raw Score: 9 CURRENT -[facility] Activity Functional Limitation/Modifier: 79.59% Currently [...] clinical decisions and judgements. * Bella Cardenas APRN-MULTIFOCAL BUTTON GRINDER - 08/08/2024 7:21 AM EDT NEUROVASCULAR STROKE SERVICE Daily Progress Note IDENTIFYING INFORMATION Lindsay Acuna MR# [id number] 08/08/2024 HISTORY OF PRESENT ILLNESS Lindsay Acuna is a 78 y.o. female with PMH significant for CAD, HTN, HLD, T2DM, Afib (on Eliquis, although patient reports she has not been taking it) who presents with L hemiplegia, slurred speech. LKW 0915 on 08/02, later found down with slurred speech and L hemiplegia. She presented to [facility] and was seen on Telestroke, NIHSS [...] 2b revascularization. INTERVAL HISTORY 08/05: [place] MBS tomorrow 08/06: Failed MBS. Increased lopressor. [...] as above -Rate controlled on metoprolol Dysphagia: -BUILDING CUSTODIAN following -NPO, DHT + TF -Failed MBS [...] [facility] when medically ready Bella Cardenas, FIRE MANAGER-MULTIFOCAL BUTTON GRINDER 08/08/2024 2:53 PM VITAL SIGNS Temp: [97.4 [...] for specific therapeutic recommendations, please see the quality assurance director report of the speech pathologist. Examination performed [...] availability Current Referrals and Status 1. [facility] CCM notified LUCIO student confirming after call with Patient's daughter that [facility] facility of choice. Facility reserved. AVS/DAVE updated. Chela Snyder Social Work Student Available by Secure Chat Cosigned by OWEN Keller at 08/08/2024 7:39 AM EDT * Prema Resendez RN - 08/07/2024 2:39 PM EDT Care Management Progress Note Notified by LUCIO bedolla that patient's daughter, Gisela Acuna, has questions for this CM. Called [facility], who asked if [facility] is able to accept or not. Discussed with Gisela that [facility] responded that they are out of network with patient's insurance, therefore only option would be private pay. Gisela stated that patient and patient's spouse are agreeable to [facility] as facility of choice, and Gisela is agreeable to [facility] as well. Updated LUCIO student. Simin Resendez, RN, BSN Clinical Soa Engineer [facility] * Chela Hannon - 08/07/2024 2:08 PM EDT Placement Plan LLAMA FARMER met with Patient and spouse at bedside to discuss facility choice. Spouse mentioned that [facility] was first choice, though LLAMA FARMER provided update that [facility] could not accept after reviewing. LLAMA FARMER reviewed other IPR options with Spouse, who reports that [facility] would be facility of choice. Spouse discussed with daughter Gisela via phone, who is in agreement but requestsa return call. LLAMA FARMER notified CCM. Chela Snyder, Social Work Student Available by Secure Chat Cosigned by OWEN Keller at 08/07/2024 2:11 PM EDT * Bella Cardenas, FIRE MANAGER-MULTIFOCAL BUTTON GRINDER - 08/07/2024 6:54 AM EDT NEUROVASCULAR STROKE SERVICE Daily Progress Note IDENTIFYING INFORMATION Lindsay Acuna MR# [id number] 08/07/2024 HISTORY OF PRESENT ILLNESS Lindsay Acuna is a 78 y.o. female with PMH significant for CAD, HTN, HLD, T2DM, Afib (on Eliquis, although patient reports she has not been taking it) who presents with L hemiplegia, slurred speech. LKW 0915 on 08/02, later found down with slurred speech and L hemiplegia. She presented to [facility] and was seen on Telestroke, NIHSS [...] 2b revascularization. INTERVAL HISTORY 08/05: [place] MBS tomorrow 08/06: Failed MBS. Increased lopressor. [...] as above -Rate controlled on metoprolol Dysphagia: -BUILDING CUSTODIAN following -NPO, DHT + TF -Failed MBS [...] [facility] when medically ready Bella Cardenas, JASIEL-MULTIFOCAL BUTTON GRINDER 08/07/2024 3:06 PM VITAL SIGNS Temp: [97.5 [...] for specific therapeutic recommendations, please see the quality assurance director report of the speech pathologist. Examination performed [...] authorization, transportation Current Referrals and Status 1. [facility]: Available 2. [facility]: Available 3. [facility]: Available (pending PEG or diet and their MD requested aspirin started before discharge) 4. [facility]: Available 5. [facility]: Unavailable, out of network 6. [facility]patient [facility]hab: Unavailable, Incorrect Level of Care 7. [facility] IPR: sent Met with patient and patient's spouse, Ike, at bedside to provide choice list. Ike called patient's daughter, Gisela Acuna, to discuss as well. Gisela requested information on private pay at [facility], messaged [facility] liaison and then provided information to Gisela. Gisela requested CM sendreferral to [facility] IPR. Plan for family to review choice list juanight, CM/SW team will update patient and family regarding [facility] IPR response tomorrow morning. This CM's contact information provided to Ike Acuna and Gisela Acuna for any further questions. Simin Resendez RN, BSN Clinical Soa Engineer [facility] * Florinda Velasquez, PT - 08/06/2024 2:30 [...] minutes Mobility Assessment/Intervention: Supine to Sit Mobility Gove Level: Supine->Sit: moderate assist (50% patient effort) Bed Features/Set-up: Supine->Sit: Head of bed elevated, Use of bed rail Skilled Rationale: Positioning, Sequencing Skilled Intervention/Details: Supine->Sit: step by step cues for sequencingg Transfer Assessment/Intervention: Sit to Stand Transfer Gove Level: Sit->Stand: moderate assist (50% patient effort) [...] left UE during transitional movements Bed-Chair Transfer Gove Level: Bed<->Chair: moderate assist (50% patient effort) Physical Assist: Bed<->Chair: 2 person assist Assistive Device: Bed<->Chair: gait belt, hand held assist Skilled Rationale: Positioning, Hand placement, Verbal cues, Sequencing Skilled Intervention/Details: Bed<->Chair: Pt educated in bed to [facility] commode transfer x 2-3 steps with cues for LE sequencing, left LE weakness requiring intermittent blocking Gait/Functional Mobility Assessment/Intervention: Gait Assessment Gove Level: Gait: (mod/max) Physical Assist: Gait: 2 [...] prevent buckling. Stairs Assessment/Intervention: Outcome Score(s): CURRENT [facility] Basic Mobility Inpatient Short Form Turning [...] a railin - Total Assistance CURRENT [facility] Mobility Raw Score: 9 CURRENT [facility] Mobility Functional Limitation: 81.38% Impaired in [...] Physical Therapy Discharge Summary. * Nimesh Balderrama, [facility] - 08/06/2024 1:42 PM EDT Department of Pharmacy Admission Medication Reconciliation Note Patient: Lindsay Acuna Room/Bed: 1043/A I have reviewed the patient's home medication list with the following sources Dispense Report. The home medication list status is: complete. All changes to the home medication list have been updated in [facility]. Updated SLASHER TENDER HELPER Med List: Prior to Admission Medications Prescriptions [...] with any further questions. Name: Nimesh Balderrama VIDYAMohsen Phone #: [phone] Date/Time: 08/06/2024 1:42 PM Time Spent: 10 minutes * Rachell Blake, OT - 08/06/2024 10:05 AM EDT Acute [...] noted Mobility Assessment/Intervention: Supine to Sit Mobility Gove Level: Supine->Sit: moderate assist (50% patient effort) [...] completion. Transfer Assessment/Intervention: Sit to Stand Transfer Gove Level: Sit->Stand: (x 1 trial from EOB [...] and kyphotic posture. Stand to Sit Transfer Gove Level: Stand->Sit: moderate assist (50% patient effort) Assistive Device: Stand->Sit: gait belt (Arm and arm assist.) Skilled Rationale: Cues for increased safety, Initiation and execution of task, Technique of activity, Controlled descent for sitting, Ischial assist, Arm in arm, Tactile cues, Verbal cues, Hand placement, Sequencing, Positioning Bed-Chair Transfer Gove Level: Bed<->Chair: moderate assist (50% patient effort) [...] with left LE). Functional Mobility: Functional Mobility Gove Level: Functional Mobility/Gait: (Moderate-max assistance) Physical Assist: [...] decreased insight/awareness intodeficits. Outcome Score(s): CURRENT [facility] Daily Activity Inpatient Short Form Putting on/Taking Off Lower Body Clothin - Total Assistance Bathin - A Lot of Assistance Toiletin - Total Assistance Putting on/Taking Off Upper Body Clothin - A Lot of Assistance Groomin - A Lot of Assistance Eatin - Total Assistance (Dobhoff.) CURRENT [facility] Activity Raw Score: 9 CURRENT [facility] Activity Functional Limitation/Modifier: 79.59% Currently [...] Occupational Therapy Discharge Summary. * Taran Traore, FIRE MANAGER-MULTIFOCAL BUTTON GRINDER - 08/06/2024 7:49 AM EDT NEUROVASCULAR STROKE SERVICE Daily Progress Note IDENTIFYING INFORMATION Lindsay Acuna MR# [id number] 08/06/2024 HISTORY OF PRESENT ILLNESS Lindsay Acuna is a 78 y.o. female with PMH significant for CAD, HTN, HLD, T2DM, Afib (on Eliquis, although patient reports she has not been taking it) who presents with L hemiplegia, slurred speech. LKW 0915 on 08/02, later found down with slurred speech and L hemiplegia. She presented to [facility] and was seen on Telestroke, NIHSS [...] 2b revascularization. INTERVAL HISTORY 08/05: Transfer to [place]. MBS tomorrow 08/06: Failed MBS. Increased lopressor. [...] as above -Rate controlled on metoprolol Dysphagia: -BUILDING CUSTODIAN following -NPO, DHT + TF -Failed MBS [...] [facility] when medically ready Taran Traore, FIRE MANAGER-MULTIFOCAL BUTTON GRINDER 08/06/2024 1:43 PM VITAL SIGNS Temp: [96.5 [...] for specific therapeutic recommendations, please see the quality assurance director report of the speech pathologist. Examination performed by Estefani Tussing, RRA, under the direct supervision of Gerry Resendez [...] 10:47 AM EDT * Taran Zamudio León, FIRE MANAGER-MULTIFOCAL BUTTON GRINDER - 08/05/2024 12:00 PM EDT NEUROVASCULAR STROKE SERVICE Daily Progress Note IDENTIFYING INFORMATION Lindsay Acuna MR# [id number] 08/05/2024 HISTORY OF PRESENT ILLNESS Lindsay Acuna is a 78 y.o. female with PMH significant for CAD, HTN, HLD, T2DM, Afib (on Eliquis, although patient reports she has not been taking it) who presents with L hemiplegia, slurred speech. LKW 0915 on 08/02, later found down with slurred speech and L hemiplegia. She presented to [facility] and was seen on Telestroke, NIHSS [...] 2b revascularization. INTERVAL HISTORY 08/05: Transfer to [facility] tomorrow PHYSICAL EXAM Gen: awake, [...] as above -Rate controlled on metoprolol Dysphagia: -BUILDING CUSTODIAN following -NPO, DHT + TF -MBS tomorrow HLD, POA: -Atorvastatin 40 mg daily CAD, POA: -Hold ASA for 7 days due to ICH T2DM, POA: -SSI regular + accuchecks CKD Stage 3A, POA: Baseline Cr 1.3 -Avoid nephrotoxins, monitor Hypothyroidism, POA: -Continue home levothyroxine 75 mcg daily Disposition: Lindsay Acuna will likely be discharged to [facility] when medically ready Taran Traore APRN-MULTIFOCAL BUTTON GRINDER 08/05/2024 2:19 PM VITAL SIGNS Temp: [97.8 [...] Per NG tube Q4H * Queta Gardner, BUILDING CUSTODIAN - 08/05/2024 11:49 AM EDT Acute Care [...] on the below outcome measures/assessment score(s), and BUILDING CUSTODIAN clinical judgment, discharge destination recommendation is: Pending [...] Impaired cognitive skills limiting saf ety/insight Acute BUILDING CUSTODIAN Outcomes Tracking Communicate basic wants and needs?: [...] oropharyngeal swallow function to most appropriately guide BUILDING CUSTODIAN plan of care. Of note, patient is [...] Currentdeficits impact her safety and independence. Ongoing BUILDING CUSTODIAN services are warranted. Subjective information: Awake, alert, [...] O2 Device: room air (08/05 0830) Acute BUILDING CUSTODIAN Goals Plan of Care by Queta Gardner, BUILDING CUSTODIAN at 08/05/2024 11:49 AM Version 1 of [...] oropharyngeal swallow function to most appropriately guide BUILDING CUSTODIAN plan of care Outcome: Ongoing Problem: BUILDING CUSTODIAN - Cognition Goal: Orientation Log - Patient [...] better assess deficits and most appropriately guide BUILDING CUSTODIAN plan of care Outcome: Met Tx: Noted [...] Plan for next session: 08/05: Good candidate; [facility] BUILDING CUSTODIAN Outcomes: BUILDING CUSTODIAN Outcomes / Standardized Measures Score The Orientation [...] wrist restraints, RN aware Needs in reach. BUILDING CUSTODIAN Evaluation and Treatment Time Speech Therapy - Individual 04943: 8 Swallowing Dysfunction Treatment 55295: 9 Upon discontinuation of Acute Care Speech Therapy Services or patient discharge from the hospital this note represents the current Speech Therapy Discharge Summary * Chela Hannon - 08/05/2024 10:37 AM EDT Placement Plan Expected Discharge Date: TBD Referred Level of Care: IPR Barriers: medical stability, bed availability Current Referrals and Status 1. [facility]- sent; denied (Patient is OON) 2. [facility]- sent 3. [facility]- sent 4. [facility]- sent 5. [facility]- sent 6. [facility] LLAMA FARMER met with Patient and Spouse at bedside to discuss discharge planning. Patient and spouse were agreeable to SW visit. LLAMA FARMER discussed therapy recommendations with Spouse for Patient to go to [facility] at discharge. Spouse is agreeable to a referral being sent to [facility]. Referral sent. Spouse requested to speak to SW about assessing Patient for dementia. LLAMA FARMER and bedside RN encouragedSpouse to discuss with Patient's outpatient provider. Chela Snyder, Social Work Student Available by Secure Chat Cosigned by OWEN Keller at 08/05/2024 11:22 AM EDT * Savana Leung RD - 08/05/2024 10:10 AM EDT NUTRITION ASSESSMENT Nutrition Recommendations and Plan of Care: 1. Diet: NPO. Advancement per team/BUILDING CUSTODIAN recommendation 2. Ordered TF: Glucerna 1.5 @ [...] time. Per team, pt failed bedside swallow. BUILDING CUSTODIAN consulted for swallow eval. Past History No [...] kg (172 lb) 06/26/24 78.9 kg (174 lb)-[facility] 05/31/24 79 kg (174 lb 2.6 oz)-[facility] 11/28/23 80.6 kg (177 lb 9.6 oz)-[facility] 09/29/23 84 kg (185 lb)-[facility] Pt without significant weight change SLASHER TENDER HELPER. Tmax: 97.8*F BP: (!) 173/94 Pulse (Heart [...] proximal second portion of the duodenum. BM: SLASHER TENDER HELPER Urine: 725mL Skin: Raghu Score: 13 Active Wounds: Wound Sheath Site 08/02/24 1500 Right Radial (3) Wound Abrasion 08/02/24 2109 Left;Upper Face (3) Edema- None Estimated Nutrition Needs: Based on IBW (61.4kg) Estimated Kcals Needs: 3159-9186 kcals (25-30kcals/kg) Estimated Pro Needs: 74-92g Pro (1.2-1.5g/kg) Estimated Fluid Needs: Per MD Nutrition Focused Physical Exam Completed?: completed Subcutaneous Fat Loss: Orbital Region (Orbital Fat Pads): WDL Cheek Region (Buccal Fat Pads): WDL Upper Arm Region (Triceps): WDL Thoracic and Lumbar Region (Ribs, Lower Back, Midaxillary Line): WDL Muscle Wasting: Buddhism Region (Temporalis Muscle): deferred (lac over eyebrow) [...] (2012) ELVIRA Ho, RD, LD, CNSC Pager: [phone] * Rashad Rg MD - 08/05/2024 9:42 AM EDT 78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 * Shanna Russ, FIRE MANAGER-MULTIFOCAL BUTTON GRINDER - 08/05/2024 7:20 AM EDT NEUROCRITICAL CARE [...] Visual richards intact to confrontation. PERRL. 3mm bioinformatics specialist III, IV and : EOMI. No [...] aggressive pulm edema, OOB as toleratd - [id number], encourage pulmonary toileting Cards: Essential HTN HLD [...] TUBE FEEDING with meds (per DHT) - Hollywood Swallow Screening Result: failed=NPO Bowel regimen: - Last Bowel Movement: (prior to admission) - Senna 17.2 mg Q12H, miralax BID, suppository PRN Stress ulcer prophylaxis: - none Dysphagia - DHT placed - BUILDING CUSTODIAN following; NPO continue following, on TF - [...] not indicated DVT: subcutaneous heparin [x] Lines [place]: n/a Gallegos: remove Rectal tube: n/a Enteral access: inserted 08/03, [ ] gastric; [x ] post-pyloric CENTRAL LINES: Central Line Indications: No line currently in place Can line/s be removed today? No line in place at this time Dressing/s Clean/Dry/Intact?: No line currently in place Discussed with NCCU Attending, Dr. Arcenio Russ, FIRE MANAGER-MULTIFOCAL BUTTON GRINDER 08/05/24 7:24 AM Check the treatment team to find the assigned neurocritical care provider (resident, fellow, ACUTE CARE NURSE, orPA) or page/call the corresponding number below NCC1 (Beds [id number]): [place] # [phone], pager #[phone] [facility] (Beds 0352-5394, [address], and overflow): [employer] #: [phone], pager #[phone] * Florinda Velasquez, PT - 08/04/2024 1:36 [...] noted Mobility Assessment: Supine to Sit Mobility Gove Level: Supine->Sit: moderate assist (50% patient effort) [...] EOB Transfer Assessment: Sit to Stand Transfer Gove Level: Sit->Stand: moderate assist (50% patient effort) Physical Assist: Sit->Stand: 2 person assist Assistive Device: Sit->Stand: gait belt, hand held assist Skilled Rationale: Positioning, Sequencing, Hand placement, Verbal cues Skilled Intervention/Details: Sit->Stand: x 1 from EOB Bed-Chair Transfer Gove Level: Bed<->Chair: moderate assist (50% patient effort) Physical Assist: Bed<->Chair: 2 person assist Assistive Device: Bed<->Chair: gait belt, hand held assist Skilled Rationale: Positioning, Sequencing, Hand placement, Verbal cues Skilled Intervention/Details: Bed<->Chair: x 2-3 steps from bed to chair Gait/Functional Mobility: Stairs: Outcome Score(s): CURRENT [facility] Basic Mobility Inpatient Short Form Turning [...] a railin - Total Assistance CURRENT [facility] Mobility Raw Score: 10 CURRENT [facility] Mobility Functional Limitation: 76.75% Impaired in [...] Edema: Mobility Assessment: Supine to Sit Mobility Gove Level: Supine->Sit: moderate assist (50% patient effort) Physical Assist: Supine->Sit: 2 person assist Bed Features/Set-up: Supine->Sit: Head of bed elevated Skilled Rationale: Positioning, Hand placement, Verbal cues, Technique of activity Transfer Assessment: Sit to Stand Transfer Gove Level: Sit->Stand: moderate assist (50% patient effort) Physical Assist: Sit->Stand: 2 person assist Assistive Device: Sit->Stand: gait belt, hand held assist Skilled Rationale: Positioning, Hand placement, Verbal cues, Technique of activity Stand to Sit Transfer Gove Level: Stand->Sit: moderate assist (50% patient effort) Physical Assist: Stand->Sit: 2 person assist Assistive Device: Stand->Sit: hand held assist Skilled Rationale: Positioning, Hand placement, Verbal cues, Arm in arm, Controlled descent for sitting Bed-Chair Transfer Gove Level: Bed<->Chair: moderate assist (50% patient effort) Physical Assist: Bed<->Chair: 2 person assist Assistive Device: Bed<->Chair: gait belt, hand held assist Skilled Rationale: Arm in arm, Patellar block, Technique of activity Skilled Intervention/Details: Bed<->Chair: LLE weakness/blocking of patella with transfer, pivot to right Functional Mobility: Outcome Score(s): CURRENT [facility] Daily Activity Inpatient Short Form Putting on/Taking Off Lower Body Clothin - A Lot of Assistance Bathin - A Lot of Assistance Toiletin - Total Assistance Putting on/Taking Off Upper Body Clothin - A Lot of Assistance Groomin - A Little Assistance Eatin - Total Assistance CURRENT [facility] Activity Raw Score: 11 CURRENT [facility] Activity Functional Limitation/Modifier: 70.42% Currently Impaired [...] assessment and plan as documented by the ACUTE CARE NURSE with my changes/additions added. Patient is a [...] ICH x 7 days - Statin - PT/OT/BUILDING CUSTODIAN evaluation Pulmonary: No acute issues, appears to [...] and other supportive care as per the ACUTE CARE NURSE note from the same day This patient [...] services to the patient today independent [facility], teaching and other care providers. Management of the above was performed. My time managing this critically ill patient included review of interval history, laboratories, radiology and cons ultation reports; performing a physical examination; discussing the patient with the multi-disciplinary team and managing life sustaining therapies to prevent imminent clinical deterioration. Richard Mejia MD Neurocritical Care Attending * Balbir Mccoy, FIRE MANAGER-MULTIFOCAL BUTTON GRINDER - 08/04/2024 7:44 AM EDT NEUROCRITICAL CARE [...] Visual richards intact to confrontation. PERRL. 3mm bioinformatics specialist III, IV and : EOMI. No [...] 2b reperfusion after 1 pass mechanical aspiration (3/21) Acute R BG CVA Acute Cytotoxic Cerebral [...] SpO2 >92%; wean FiO2 as tolerated - [id number], encourage pulmonary toileting Cards: Essential HTN HLD [...] troponin: 9 - 08/02 ECG: Afib - 3/21 BNP: 1,115 Renal/: CKD stage 3a Urinary [...] TUBE FEEDING with meds (per DHT) - [place] Swallow Screening Result: failed=NPO Bowel regimen: - Last Bowel Movement: (prior to admission) - Senna 17.2 mg Q12H, miralax at bedtime Stress ulcer prophylaxis: - none Dysphagia - DHT placed - BUILDING CUSTODIAN following - Tube feed: Vital AF with [...] not indicated DVT: subcutaneous heparin [x] Lines [place]: n/a Gallegos: inserted 08/02, (indication: strict I&O [...] the assigned neurocritical care provider (resident, fellow, ACUTE CARE NURSE, orPA) or page/call the corresponding number below NCC1 (Beds [phone]): [place] # [phone], pager #[phone] NCC2 (Beds 8621-9154, [address], and overflow): Pernell #: [phone], pager #[phone] * Rafael Garcia MD - 08/03/2024 2:16 PM EDT NEUROVASCULAR Consult Daily Progress Note IDENTIFYING INFORMATION Lindsay Acuna MR# [id number] 08/03/2024 HISTORY OF PRESENT ILLNESS Lindsay Acuna is a 78 y.o. female with PMH significant for CAD, HTN, HLD, T2DM, Afib (on Eliquis, although patient reports she has not been taking it) who presents with L hemiplegia, slurred speech. She was last seen normal by her at 0915, later found down with slurred speech and L hemiplegia. She presented to [facility] and was seen on Telestroke, NIHSS [...] speech and L hemiplegia. She presented to [facility] and was seen on Telestroke, NIHSS [...] - 08/03/2024 12:09 PM EDT Acute Care BUILDING CUSTODIAN Speech/Language/Cognitive Evaluation Best mode of Communication: spoken language (regular speech) Discharge Recommendations: Based on the below outcome measures/assessment score(s) and BUILDING CUSTODIAN clinicaljudgment, discharge destination recommendation is: (Skilled speech therapy services at next level of care) Barriers to discharge home: Cognitive impairments that impact safety and independence Supporting factors for discharge setting: Impaired swallow function limiting nutritional status andsafety with oral intake Acute BUILDING CUSTODIAN Outcomes Tracking Communicate basic wants and needs?: [...] speech and L hemiplegia. She presented to [facility] and was seen on Telestroke,NIHSS 12. [...] 0 Asthenia (A): 0 Strain (S): 0 BUILDING CUSTODIAN Outcomes / Standardized Measures Score The Orientation [...] unable to respond. Total Score: 12 Acute BUILDING CUSTODIAN Goals Plan of Care by RIKI Hayes at 08/03/2024 11:25 AM Version 1 of 1 Problem: Dysphagia Goal: Ongoing Assessment - Patient will participate in ongoing assessment by accepting various PO consistency trials with appropriate participation/oral acceptance and no significant respiratory complications to determine readiness for diet advancement Outcome: Ongoing Problem: BUILDING CUSTODIAN - Cognition Goal: Orientation Log - Patient [...] better assess deficits and most appropriately guide BUILDING CUSTODIAN plan of care Outcome: Ongoing Speech Language [...] of session: bed alarm Needs in reach. BUILDING CUSTODIAN Evaluation and Treatment Time Speech Eval - Sound Production W/Lang Comp and Exp 81162: 11 Swallowing Eval 44993: 10 Upon discontinuation of Acute Care Speech [...] on the below outcome measures/assessment score(s) and BUILDING CUSTODIAN clinicaljudgment, discharge destination recommendation is: Deferred to PT/OT recomendations related to mobility Current therapy frequency recommendation in acute care: Swallow Therapy Frequency: 5 times a week Acute BUILDING CUSTODIAN Outcomes Tracking Communicate basic wants and needs?: [...] speech and L hemiplegia. She presented to [facility] and was seen on Telestroke,NIHSS 12. 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 Prior BUILDING CUSTODIAN history: No prior speech history per chart [...] and Liquids Trialed Modality Amount Ice Teaspoon, BUILDING CUSTODIAN-fed 3x Thin Teaspoon 3x Oral Phase Function [...] Patient presents with presumed pharyngeal phase impairments. Hollywood Swallow Screen: (administered by: ZOE) Tabitha Swallow Screening Screening Exclusion Criteria: none, [...] Ok for ice chips with RN supervision. BUILDING CUSTODIAN will continue to follow for ongoing dysphagia management. Patient Education/Instruction Learners: Patient Education provided: Dysphagia recommendation risk: benefit analysis, Role of this discipline Teaching method: Verbal Education/Instruction Learner response: Needs review Learning preferences: Auditory Learning considerations: Cognition Plan for next session: 08/03: Good Prognosis, ongoing dysphagia management to determine readiness for diet advancement vs instrumental. Acute BUILDING CUSTODIAN Goals Plan of Care by RIKI Hayes at 08/03/2024 11:25 AM Version 1 of 1 Problem: Dysphagia Goal: Ongoing Assessment - Patient will participate in ongoing assessment by accepting various PO consistency trials with appropriate participation/oral acceptance and no significant respiratory complications to determine readiness for diet advancement Outcome: Ongoing Problem: BUILDING CUSTODIAN - Cognition Goal: Orientation Log - Patient [...] better assess deficits and most appropriately guide BUILDING CUSTODIAN plan of care Outcome: Ongoing Speech Language Pathologist: RIKI Hayes, BCS-S Board Certified Specialist in Swallowing and Swallowing Disorders Available via [employer] Chat Time In: 1130 Time Out: 1151 Total Visit Time: 21 minutes Total Treatment Time (skilled, billable minutes): 21 minutes Non-billable assistance during session: none Assisted by during session: Patient's PPE used during patient interaction: gloves Patient location/status at end of session: bed with head of bed elevated Patient alarms at end of session: bed alarm Needs in reach. BUILDING CUSTODIAN Evaluation and Treatment Time Speech Eval - Sound Production W/Lang Comp and Exp 16355: 11 Swallowing Eval 42509: 10 Upon discontinuation of Acute Care Speech Therapy Services or patient discharge from the hospital this note represents the current Speech Therapy Discharge Summary * Richard Mejia MD - 08/03/2024 10:30 AM EDT I have independently seen and examined the patient on 08/03/24. I agree with the history, examination, assessment and plan as documented by the ACUTE CARE NURSE with my changes/additions added. Patient is a [...] the setting of ICH - Statin - PT/OT/BUILDING CUSTODIAN evaluation Pulmonary: No acute issues, appears to [...] and other supportive care as per the ACUTE CARE NURSE note from the same day This patient [...] services to the patient today independent offormerly [facility], teaching and other care providers. Management of [...] with assistance from spouse Care Management Plan LLAMA FARMER met with Patient and Spouse at bedside to complete Initial Assessment. They were agreeable to SW visit. Patient was lethargic though able to answer some short questions. Patient consented to Spouse assisting with assessment. Spouse/Patient report that Patient has never completed a HCPOA. They expressed interest, and LLAMA FARMER will follow to complete document when Patient is more alert and oriented. Spouse reports himself and Patient live in a ranch-style home with strong supports from their community, including 2 neighbors that have assisted at this time. He noted that himself and Patient recently returned from a visit to [facility] for their anniversary. Spouse reports that their 2 children will be visiting soon. LLAMA FARMER explained SW role and offered resources. Spouse [...] Name and Contact information: Ike Acuna P: [phone] Adult Child(jj), List All Adult Children: Yes Name and Contact information: Donnell Acuna P: [phone]; Nathen Acuna P: [phone] Would you like to add additional adult [...] for Advance Care Planning? : Patient Agreeable (LLAMA FARMER to follow for HCPOA completion when Patient is more alert and oriented) Medication Management Does the patient have prescription insurance coverage? : Yes Is the patient on Anticoagulation? : Yes (Per chart review, Patient is on anticoagulation but has not been taking it (does not recall the last time she took a dose)) Provider or Clinic that manages Anticoagulation?: (unspecified at this time) [facility] [address] [place] [id number] - [phone] [facility] [address] [place] [address] Living Environment and Support System Is the patient from a facility or shelter?: No Living Environment: House ("1 bedroom ranch") Patient Caregiving Responsibilities: Self Patient-identified caregiver/support network: Family, Friends, Neighbors, Restorationism Who does the patient identify as a [...] themselves at home? : Unable to assess Outreach Counselor Does the patient or sales representative womens health express financial concerns? : No Chela Snyder Social Work Student Available by Secure Chat Cosigned by OWEN Keller at 08/03/2024 11:20 AM EDT * Balbir Mccoy, FIRE MANAGER-MULTIFOCAL BUTTON GRINDER - 08/03/2024 7:40 AM EDT NEUROCRITICAL CARE [...] Visual richards intact to confrontation. PERRL. 3mm bioinformatics specialist III, IV and : EOMI. No [...] SpO2 >92%; wean FiO2 as tolerated - LNB8BPB, encourage pulmonary toileting Cards: Essential HTN HLD [...] - Bowel regimen: - Last Bowel Movement: (SLASHER TENDER HELPER) - Senna, miralax Stress ulcer prophylaxis: - none Dysphagia - DHT placed - BUILDING CUSTODIAN following - Tube feed: Vital AF with [...] the assigned neurocritical care provider (resident, fellow, ACUTE CARE NURSE, orPA) or page/call the corresponding number below NCC1 (Beds 6361-8234): [place]ernell # [phone], pager #[phone] NCC2 (Beds 8983-6588, 12 Nando, and overflow): [place] #: [phone], pager #[phone] * Nando Caceres MD - 08/03/2024 6:00 [...] was soft, pulses intact WBC/Hgb/Hct/Plts: 8.43/13.5/42.8/227 (08/03 0002) Na/K+/Phos/Mg/Ca: 138/4.3/3.5/2.1/-- (08/03 0002) Bun/Creat/Cl/CO2/Glucose: 18/1.35/103/23/151 (08/03 0002) Lab Results Component Value Date INR [...] nccu Neurosurgery signing off Please page NS2 ([email or web address]) with questions Complexity. Hypocalcemia - Continue to [...] any questions, Name: Andreas Ga RPH Phone: [phone] Date/Time: 08/02/2024 10:57 PM * Richard Mejia MD - 08/02/2024 6:01 PM EDT I have independently seen and examined the patient on 08/02/24. I agree with the history, examination, assessment and plan as documented by the ACUTE CARE NURSE with my changes/additions added. Patient is a [...] to determine stroke burden - Statin - PT/OT/BUILDING CUSTODIAN evaluation Pulmonary: No acute issues, appears to [...] stage 3a - Maintain euvolemia GI/Nutrition: - BUILDING CUSTODIAN evaluation - Bowel regimen to prevent constipation [...] and other supportive care as per the ACUTE CARE NURSE note from the same day This patient [...] Neurocritical Care Attending [facility] Consult note* Niru Koch MD - [...] today. Consent obtained by at bedside. - BUILDING CUSTODIAN eval: none - RD eval: none PAST [...] dependence ASSESSMENT/RECOMMENDATIONS: - primary team feels that long wall mining machine tender enteric nutrition is warranted in s/o CVA. Patient is appropriate for endoscopic PEG placement. Consent obtained from at bedside. - we will tentatively plan for EGD for PEG placement 08/09 as add on case. See pre procedure recommendations below. For PEG: - Ancef ordered (1 gm if patient is <80 kg; 2 gm if patient is >80 kg) as "environmental health safety engineer to the procedure"). - Please make NPO [...] Hepatology, and Nutrition Clinical Fellow PGY-4 Pager: [phone] For urgent/stat calls 5pm to 7am or all day on the weekend, please page the on- call GI fellow on [email or web address]. IM Consult Serv [facility] --> [facility] STAT/NEW GI consults For follow up questions regarding this patient, contact the IBD consults fellow or DAHLIA on [place]. IM Consult Serv GHN --> [facility] [...] and medical decisions as outlined. Need for fci non-oral enteric nutrition per primary team. We will facilitate this with planned PEG tube placement. Before placement, non-GI management of TF should be established to avoid delays. David Woods M.D. 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 Prema Ramos M.D. Dermatology Sales Representative Department of Neurosurgery [facility] * Taran Traore, FIRE MANAGER-MULTIFOCAL BUTTON GRINDER - 08/02/2024 2:44 PM EDT Neurovascular Evaluation [...] speech and L hemiplegia. She presented to [facility] and was seen on Telestroke, NIHSS [...] Scales Flowsheet Row Most Recent Value Modified Equality Scale Score Premorbid (MRSS) 0 filed on [...] solution Intravenous Continuous PRN Bebo Barboza APRN- MAILROOM COURIER New Bag at 08/02/24 1507 Scheduled Meds: [...] protrudes midline Motor: L hemiplegia Reflexes: Coordination: Kqcwpg-xc-sdke intact on the R, unable to test [...] telemetry -PT, OT, Speech and social media assistant consults Other problems: Complexity. Any conditions listed [...] speech and L hemiplegia. She presented to [facility] and was seen on Telestroke, NIHSS [...] MD documented in this encounter[facility] Procedure note* Tanja Hunter, RIKI - [...] the below outcome measures/assessment score(s), MBS, and BUILDING CUSTODIAN clinical judgment, discharge destination recommendation is: IP Rehab Facility. Patient demonstrates good candidacy for discharge to: IRF. Additional supporting factors include: Impaired swallow functionlimiting nutritional status and safety with oral intake. Acute BUILDING CUSTODIAN Outcomes Tracking Communicate basic wants and needs?: [...] speech and L hemiplegia. She presented to [facility] and was seen on Telestroke, NIHSS [...] Thin Barium: teaspoon x2, straw x2 Varibar Falcon Barium: straw x1 Varibar Thin Honey Barium: [...] recommend NPO and nonoral meds. Ongoing skilled BUILDING CUSTODIAN services indicated to address deficits and maximize [...] Therapeutic Interventions Met: yes, treatment indicated Acute BUILDING CUSTODIAN Goals Plan of Care by RIKI Gonzales at 08/06/2024 9:33 AM Version 1 of 1 Problem: Dysphagia Goal: MBS - Patient will participate in Modified Barium Swallow (MBS) Study to objectively assess oropharyngeal swallow function to most appropriately guide BUILDING CUSTODIAN plan of care Outcome: Met Goal: Bolus [...] Treatment Time (skilled, billable minutes): 20 minutes BUILDING CUSTODIAN Evaluation and Treatment Time MBS/Motion Fluoroscopic Swallowing Eval 92294: 20 Speech Language Pathologist: RIKI Gonzales Time In: 931 Time Out: 951 Total Visit Time: 20 minutes Total Treatment Time (skilled, billable minutes): 20 minutes Non-billable assistance during session: DANIEL Assisted by during session: RA Melendez PPE used during patient interaction: gloves Patient location/status at end of session: bed with head of bed elevated Patient alarms at end of session: none altered (RN present) BUILDING CUSTODIAN Evaluation and Treatment Time MBS/Motion Fluoroscopic Swallowing Eval 41656: 20 Upon discontinuation of Acute Care Speech Therapy Services or patient discharge from the hospital this note represents the current Speech Therapy Discharge Summary documented in this encounter[facility] Hospital Discharge instructions* Discharge Instructions* Jhoana Jane JASIEL Casarez-MULTIFOCAL BUTTON GRINDER - 08/06/2024 8:38 AM EDT Please take [...] you at all times. Stroke Education: visit [email or web address] What are the most common symptoms of [...] all ordered medications [x] Avoid non-prescription or qndc-aih-xvfewok medication not cleared by your physician [x] [...] may call the neurovascular doctors office at [phone], if you have questions Mon-Fri between 8:30 am and 4:30 pm. - For off hours or the weekend you may call the office or the hospital check writing machine operator at and ask for the stroke resident environmental health safety engineer to be paged. - If you have any other questions or needs, please call Aniyah DOSS, RN, Stroke Nurse Navigator at [phone] Mon-Mon between 7:00am and 3:00pm. - Additional assistance may be found by reaching out to our Case Management Office at [phone]. *In the event of an Emergency: If you have a physical or psychiatric emergency call 421 or go to your local emergency department. You should also call your outpatient provider's emergency number. Other reference numbers: [facility] Intake [facility] at [phone]; [facility] at 530-494-1581; or Suicide Prevention Hotline at 876-632-7433. *Helpful phone numbers: Free Crisis Hotline: 4-297-475-TALK ( ) Suicide Hotline: 688.409.2040 Seniors Suicide Hotline: 171.539.4725 [facility] Youth: 974.997.8256 Mental Health of [place]: 309.257.2062 (free counseling) [facility] Access Hotline: 595-781-GNCI (791-185-6252) 24-hour crisis text hotline: Text the word "4hope" to 508-197 for crisis support. Texting this number is [...] qualify for Medicaid/public assistance: The [facility] Department of Job and Family Services can now process zayas (TANF), food (SNAP) and Medicaid Applications over the phone. Please call [phone] ([phone]) and apply over the phone or apply online at www.benefits.[place].gov. Monday-Monday 8am-12pm noon. Medication Assistance Programs [employer] members can buy 100+ common prescriptions for FREE, $3 or $6. Annual membership is $36 for individuals and $72 for families (up to 6 people, including pets). Sign up online or enroll at your nearest pharmacy! -Keas, web site can provide a significant number of coupons for medications at a much lower raymundo. [place] Department of Aging The Department of Aging administers programs and services to meet the needs of older [facility]. Services and resources offered per county may include transportation, housekeeping, meals and nutrition, personal care, case management, safety monitoring, home medical equipment, legal services, director financial services, health and wellness, education, caregiver support, respite care, etc. Call to be connected to the area agency on aging serving your community or visit aging.[place].gov/find-services. Request a consultation with a community resource expert at ltssi.age.[place].gov/ [facility] Stroke Support [facility] Stroke Support Group is for stroke survivors, friends, and family members. Meets on the Monday of each month from 6:30pm-7:30pm at [facility] ([address]; [place] [address]). Contact Chela Nolan, at [phone] or [email or web address]. If you are outside of the [place] area, contact The [place] Stroke [employer] at www.stroke.org or 2-369-7-STROKE or for support groups in your area. You may also refer to the Your Care after a Stroke education booklet at go.[facility].edu/dcwi7208 for additional resources. * Medications* PATRIZIA Miner - 08/06/2024 8:38 AM EDT Know your medicines Make sure you know why you are taking each medicine. Make a master list of all your medicines. Write down the medicine names and doctors' names. Includedoses and side effects too. And write down why you take each medicine. Include all prescription cxtohqc-iff-rpdyunr medicines, vitamins, and supplements. Keep this list [...] plan your refills so that you can cotton picker all your medicines at the same [...] months. documented in this encounter[facility] History and physical note* PATRIZIA Lam [...] Visual richards intact to confrontation. PERRL. 3mm bioinformatics specialist III, IV and : EOMI. No [...] SpO2 >92%; wean FiO2 as tolerated - KKO2MNM, encourage pulmonary toileting Cards: Essential HTN HLD [...] prophylaxis - rationale: post thrombectomy [x] Lines [place]: n/a Gallegos: n/a Rectal tube: n/a Enteral [...] the assigned neurocritical care provider (resident, fellow, ACUTE CARE NURSE, orPA) or page/call the corresponding number below NCC1 (Beds 0200-4213): [place] # [phone], pager #[phone] NCC2 (Beds 2177-4666, 12 Nando, and overflow): [place] #: [phone], pager #[phone] Cosigned by Richard Mejia MD at 08/02/2024 11:14 PM EDT documented in this encounterOSU [facility] Nurse Note* Rachell Ruffin RN - 08/02/2024 3:13 PM EDT 9 cc air instilled in right radial TR band @ 1520. Glasses placed in bag wit label. Sent to PACU with patient on cart. documented in this encounterOSU [facility]25 Discharge summary [facility] Medical Records Department [address] [place] [address] Emergency Department Summary 08/02/24 MR#: [id number] Acct: [id number] Name: LINDSAY ACUNA Rep #:[id number] : [...] the EMR. states they returned home from [facility] about 1.5-2 weeks ago, and they both had colds. He is better, but she is "on round 2." [facility] Medical History Paroxysmal atrial fibrillation with [...] 71.4 H Lymph % (Auto) 17.9 L [place] % (Auto) 8.9 Eos % (Auto) 1.0 [...] on 08/02/2024 at 1250 hours. Reading Location: [facility] Head/Neck CTA 08/02/24 12:24 IMPRESSION: RIGHT CAROTID: Mild degree of calcific plaque at the origin of the right internal carotid artery. LEFT CAROTID: Mild degree of calcific plaque at the origin of the left internal carotid artery. VERTEBRALS: Dominant left vertebral artery INTRACRANIAL: Unremarkable Other impression: No significant stenosis seen. Reading Location: [place] [address] Rhythm Strip Rhythm Strip: A-fib Rate: 90 Ectopy: None EKG Initial EKG: Attestation: I personally reviewed and interpreted this EKG as follows: Interpretation: No Acute Injury Pattern, Atrial Fibrillation and Non-Specific ST Changes Management Discussion w/another healthcare provider: Receiving Lead ([facility] stroke neurology) and Radiologist Stroke Documentation [...] min), Including time spent:, Discussing w/Patient &/or Family/Director Mba, Discussing w/Consultants, Arranging Admission or Transfer and [...] MD [Primary Care Provider] - Print Language: Swedish Disposition Disposition: Acute Care Hospital Discharge Location: [facility] What to do if you have Problems For any increased pain, shortness of breath, bleeding, nausea or vomiting, chestpain, or any unexpected problems, contact your Primary Care Provider. Call Doctors Registry ([phone]) or report tothe closest Emergency Room. Call 911 if necessary. 08/02/24 1316 Cosigner Signature (if applicable): CC: Dr. Kameron Caruso MD ~ Signed [facility]03-21-2025 Radiology Diagnostic study note [facility] Imaging Services [address] [place] [address] STROKE CTA Head AND Neck W/Con MR#: [id number] Acct: [id number] Name: LINDSAY ACUNA Rep #: [id number] : 1945 F 78 From: Regulo Hargrove MD PCP: Dr. Kameron Caruso MD Status: RE G ER Study:STROKE CTA Head AND Neck W/Con Date of Exam: 08/02/24 Exam# [id number] Ordering Dr: Roby Morgan MD PROCEDURE: STROKE [...] impression: No significant stenosis seen. Reading Location: [place] [address] CC: Dr. Pieter Morgan MD; Dr. Kameron Caruso MD ~ Marketing Regional Consultant: Signed [facility]03-21-2025 Radiology Diagnostic study note [facility] Imaging Services [address] [place] [address] [id number] STROKE Brain/Head without Cont MR#: [id number] Acct: [id number] Name: LINDSAY ACUNA Rep #: [id number] : 1945 F 78 From: Shira Cardoso MD PCP: Dr. Kameron Caruso MD Status: RE G ER Study:STROKE Brain/Head without Cont Date of Exam: 08/02/24 Exam# [id number] Ordering Dr: Roby Morgan MD EXAM: CT [...] on 08/02/2024 at 1250 hours. Reading Location: [facility] CC: Dr. Pieter Morgan MD; Dr. Kameron Caruso MD ~ Marketing Regional Consultant: Signed [facility]02-19-2025 Telephone encounter Note* Telephone Encounter - Mj Glover APRN.CNP - 07/03/2024 12:28 PM EST The following approved medication requests have been transmitted electronically. Requested Prescriptions Signed Prescriptions Disp Refills doxycycline monohydrate (MONODOX) 100 mg capsule 56 capsule 0 Sig: Take 1 capsule by mouth two times a day for 28 days. Authorizing Provider: MJ GLOVER APRN.CNP [facility]02-19-2025 Miscellaneous Notes* Telephone Encounter - Mj Glover APRN.CNP - 07/03/2024 12:28 PM EST The following approved medication requests have been transmitted electronically. Requested Prescriptions Signed Prescriptions Disp Refills doxycycline monohydrate (MONODOX) 100 mg capsule 56 capsule 0 Sig: Take 1 capsule by mouth two times a day for 28 days. Authorizing Provider: MJ GLOVER APRN.GARRETT * Telephone Encounter - Katrina Coombs - [...] calling: self Call patient at: on cell [phone] (home) [phone] (cell) Was an appointment scheduled: No Closing statement: Results or non-symptom based questions: Thank you for calling [facility], your call will be returned within the next business day. Katrina Coombs documented in this encounterOhiohealth [facility]02-19-2025 Telephone encounter Note * Telephone Encounter - Malvin Katrina - [...] calling: self Call patient at: on cell [phone] (home) [phone] (cell) Was an appointment scheduled: No Closing statement: Results or non-symptom based questions: Thank you for calling [facility], your call will be returned within the next business day. Katrina Coombs [facility]02-18-2025 Telephone encounter Note* Telephone Encounter - Katai Grullon RN - 07/02/2024 11:57 AM EST Patient calls and is requesting Cardiology referral to be faxed to [facility]. Faxed referral as requested. Katia Grullon RN [facility]02-18-2025 Miscellaneous Notes* Telephone Encounter - Katia Grullon RN - 07/02/2024 11:57 AM EST Patient calls and is requesting Cardiology referral to be faxed to [facility]. Faxed referral as requested. Katia Grullon RN documented in this encounterOhiohealth [facility]02-17-2025 Telephone encounter Note * Telephone Encounter - Bret Arambula LPN - 07/01/2024 12:39 PM EST Patient notified of Rx, verbalizes understanding of instructions. Bret Arambula LPN [facility]02-17-2025 Miscellaneous Notes* Telephone Encounter - Bret [...] calling: self Call patient at: on cell [phone] (home) [phone] (cell) Was an appointment scheduled: Leslie Swanson documented in this encounterOhiohealth [facility]02-17-2025 Telephone encounter Note * Telephone Encounter [...] 7 days. Authorizing Provider: MJ GLOVER APRN.GARRETT [facility]02-14-2025 Telephone encounter Note* Telephone Encounter - Adenike Walton MA - 06/28/2024 3:08 PM EST Please review pt message and advise. Adenike Walton MA [facility]02-14-2025 Telephone encounter Note* Telephone Encounter - [...] calling: self Call patient at: on cell [phone] (home) [phone] (cell) Was an appointment scheduled: Leslie Swanson [facility]02-12-2025 Instructions* Patient Instructions* Emma Sotomayor APRN.CNP - 06/26/2024 10:00 AM EST Recommend consult with cardiology Continue to take all medication as prescribed Get repeat thyroid labs when you get back from vacation Contact the office with preferred malaria medication Follow up in 6 months. documented in this encounterOhiohealth [facility]02-12-2025 History of Present illness Narrative* Emma [...] discussed and patient voices understanding. Emma Sotomayor APRN.MULTIFOCAL BUTTON GRINDER This note was partially generated using 2theloo voice recognition system. Note was reviewed for accuracy. There may be minor misspellings or grammar miscues with 2theloo voice recognition. documented in this encounterOhiohealth [facility]02-12-2025 NoteHNO ID: [id number] Author: EMMA SOTOMAYOR APRN.GARRETT Service: ? Author [...] mouth daily with breakfast. blood sugar diagnostic (ServioTOUCH ULTRA TEST) test strip Test Blood Sugar one times daily Dx: E11.29 Insulin: No lancets (ServioTOUCH DELICA PLUS LANCET) 30 gauge Test blood [...] hematochezia/melena. No heartburn o (more content not included)...[facility]02-10-2025 Telephone encounter Note* Telephone Encounter - Kameron Caruso MD - 06/24/2024 7:26 PM EST Noted Kameron Caruso MD [facility]02-10-2025 Miscellaneous Notes* Telephone Encounter - Kameron Caruso MD - 06/24/2024 7:26 PM EST Noted Kameron Caruso MD * Telephone Encounter - Katia Grullon RN - 06/24/2024 1:20 PM EST Patient calls and states that she is going to be going to [facility] and will need medications for Malaria Patient does have appointment with provider tomorrow, but wanted to give provider heads up that she will be needing this. Katia Grullon RN documented in this encounterOhiohealth [facility]02-10-2025 Telephone encounter Note * Telephone Encounter - Katia Grullon RN - 06/24/2024 1:20 PM EST Patient calls and states that she is going to be going to [facility] and will need medications for Malaria Patient does have appointment with provider tomorrow, but wanted to give provider heads up that she will be needing this. Katia Grullon RN [facility]01-28-2025 Telephone encounter Note* Telephone Encounter - Naima Marshall RN - 06/11/2024 4:17 PM EST Pt called and is notified of providers results and instructions. Pt voices understanding. Naima Marshall RN [facility]01-28-2025 Miscellaneous Notes* Telephone Encounter - Naima Marshall RN - 06/11/2024 4:17 PM EST Pt called and is notified of providers results and instructions. Pt voices understanding. Naima Marshall RN * Telephone Encounter - Kameron Caruso MD - 06/11/2024 2:42 PM EST Please notify patient that her echocardiogram looks OK; continue with the meds as prescribed. Kameron Caruso MD documented in this encounterOhiohealth [facility]01-28-2025 Telephone encounter Note * Telephone Encounter [...] and pick them up. Naima Marshall RN [facility]01-28-2025 Miscellaneous Notes* Telephone Encounter - Naima [...] call and advise Pt. documented in this encounterOhiohealth [facility]01-28-2025 Telephone encounter Note * Telephone Encounter - Kameron Caruso MD - 06/11/2024 2:42 PM EST Please notify patient that her echocardiogram looks OK; continue with the meds as prescribed. Kameron Caruos MD [facility]01-27-2025 Telephone encounter Note* Telephone Encounter - Adenike Walton MA - 06/10/2024 2:12 PM EST Update pt on PCP's message below. Also FYI. FYI - Also to note, this was written in instructions on pt's AVS that was given to her. This information was highlighted on AVS given to her after her appt to start Eliquis 5 mg twice daily. Adenike Walton MA [facility]01-27-2025 Telephone encounter Note* Telephone Encounter - Naima Marshall RN - 06/10/2024 2:05 PM EST Called and left a message with her to have the Pt call back for providers message. Naima Marshall, ZOE [facility]01-27-2025 Telephone encounter Note* Telephone Encounter - Kameron Caruso MD - 06/10/2024 1:45 PM EST I would recommend she start on the Eliquis now Kameron Caruso MD [facility]01-27-2025 Telephone encounter Note* Telephone Encounter - [...] taking it. Please call and advise Pt. [facility]01-17-2025 Instructions* Patient Instructions* Kameron Caruso MD [...] medications and Echo results. documented in this encounterOhiohealth Nelsonville [facility] Center01-17-2025 History of Present illness Narrative* Kameron Caruso MD - 05/31/2024 9:00 AM EST Chief Complaint Patient presents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 of traveler's diarrhea- Primary Personal history of other diseases of digestive system documented in this encounter [facility] note* Diagnosis History of traveler's diarrhea Personal history of other diseases of digestive system documented in this [facility] noteNo assessment information availableWDiley [facility] Work Phone: Evaluation note* Diagnosis Acute ischemic right MCA stroke- Primary Unspecified cerebral artery occlusion with cerebral infarction Cerebrovascular accident (CVA), unspecified mechanism Renal disease (High Serum Creatinine) Unspecified disorder of kidney and ureter Type 2 diabetes mellitus with hyperglycemia Type II or unspecified type diabetes mellitus without mention of complication, not stated as uncontrolled documented [facility] N[facility] No data available for this section [facility] Reason for referral (narrative)* Outpatient Procedure (Routine) - Pending Review Specialty Diagnoses / Procedures Referred By Contac t [facility] Diagnoses Atrial fibrillation, unspecified type (HCC) Procedures ECHO ECHO TTHRC R-T 2D W/WOM-MODE COMPL SPEC&COLR Kameron Cornejo MD [address] [place] [address] [facility] [address] [place] [address] Referral ID Status Reason Start Date Expiration Date Visits Requested Visits Authorized [id number] Pending Review Auto-Generat ed Referral 05/31/2024 05/31/2025 1 1 * Outpatient Procedure (Routine) - New Request Specialty Diagnoses / Procedures Referred By Qiana almodovar Ref[facility] Diagnoses Irregular heart beat Procedures ECG COMPLETE ECG ROUTINE ECG W/LEAST 12 LDS W/I&R Kameron Caruso MD [address] [place] [address] [facility] [address] [place] [address] Referral ID Status Reason Start Date Expiration Date Visits Requested Visits Authorized [id number] New Request Auto-Generat ed Referral 05/31/2024 05/31/2025 1 1 [facility] (narrative)No reason for referral information availableWDiley [facility] Medical [facility] Work Phone: Reason for visit Narrative* Auth/Cert Specialty Diagnoses / Procedures Referred By Qiana almodovar Referred To Contact Diagnoses Acute ischemic right MCA stroke Cerebrovascular Accident (Level A Ishemic Stroke) Prema Rodgers MD [address] [place] [address] Phone: tel: fax: [facility] [address] [place] [address] Referral ID Status Reason Start Date Expiration Date Visits Re quested Visits Authorized [id number] 1 1 [facility] Summary Purpose Family History No Family History Records Found Relationship Condition Age at Onset Recorded Date/T monse mother Diabetes mellitus Unknown Hypertension Unknown Psychiatric disorder Unknown grandmother Malignant neoplasm Unknown sister Disorder of thyroid Unknown Advance Directives No Advanced Directives Records FoundDocuments on File Type Date Recorded 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 Advance Directives and Living Will Power of Construction Lineman Latest Code Status on File Code Status Date Activated Date Inactivated Comments Full Code 01/09/2019 10:16 AM Latest Code Status on File Code Status Date Activated Date Inactivated Comments Full Code 10/16/2019 9:16 AM Full Code 01/09/2019 10:16 AM 01/09/2019 2:23 PM Documents on File Type Date Recorded 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 No August 02, 2024 12:46pm Date Activated [...] patient had a polyp identified by on {time:21713}. Biopsies {are/were w not:9034} taken. The patient's usual bowel pattern is {bowel pattern:96284}. Bowel movements {bowel changes:52031} . {abd pain:02457}. The patient has noted{bleeding with BM:87178}. The patient {does/do/not:53387} have a family history of colon polyps. The patient {does/do/not:88494} have a family history of colon cancer. [...] WORK September 10, 2024 5:0 0am [facility]IB ([facility]) October 02, 2024 9:29a m Chief Complaint [...] WORK October 01, 2024 5:00a m AFIB ([facility]) October 02, 2024 9:29a m LAB WORK October 08, 2024 5:00a m MONTHLY EXAM October 09, 2024 5:45p m LONG TERM LAB WORK October 15, 2024 5:0 0am LONG TERM LAB WORK October 22, 2024 5: 00am LONG TERM LAB WORK October 23, 2024 5: 00am LONG TERM LAB WORK October 29, 2024 5: 00am [...] WORK October 01, 2024 5:00a m AFIB ([facility]) October 02, 2024 9:29a m LAB WORK October 08, 2024 5:00a m MONTHLY EXAM October 09, 2024 5:45p m LONG TERM LAB WORK October 15, 2024 5:0 0am LONG TERM LAB WORK October 22, 2024 5: 00am LONG TERM LAB WORK October 23, 2024 5: 00am LONG TERM LAB WORK October 29, 2024 5: 00am NEW CONCERN October 30, 2024 6:00 pm LONG TERM LAB WORK November 12, 2024 5:0 0am [...] MONTHLY EXAM October 09, 2024 5:45p m LONG TERM LAB WORK October 15, 2024 5:0 0am LONG TERM LAB WORK October 22, 2024 5: 00am NEW CONCERN October 22, 2024 12:4 5pm LONG TERM LAB WORK October 23, 2024 5: 00am LONG TERM LAB WORK October 29, 2024 5: 00am NEW CONCERN October 30, 2024 6:00 pm LONG TERM LAB WORK November 12, 2024 5:0 0am [...] MONTHLY EXAM October 09, 2024 5:45p m LONG TERM LAB WORK October 15, 2024 5:0 0am LONG TERM LAB WORK October 22, 2024 5: 00am NEW CONCERN October 22, 2024 12:4 5pm LONG TERM LAB WORK October 23, 2024 5: 00am LONG TERM LAB WORK October 29, 2024 5: 00am FU VISIT October 29, 2024 7:15 pm NEW CONCERN October 30, 2024 6:00 pm LONG TERM LAB WORK November 12, 2024 5:0 0am Additional Source Comments INFORMATION SOURCE (unrecogn ized section and content) DATE CREATED AUTHOR 08/31/2018 [facility] ([place]) DATE CREATED AUTHOR AUTHOR'S ORGANIZ ATION 10/18/2019 [facility] DATE CREATED AUTHOR AUTHOR'S ORGANIZ ATION 08/04/2024 [facility] DATE CREATED AUTHOR AUTHOR'S ORGANIZ ATION 08/07/2024 [facility] DATE CREATED AUTHOR AUTHOR'S ORGANIZ ATION 09/01/2024 [facility] DATE CREATED AUTHOR AUTHOR'S ORGANIZ ATION 10/13/2024 [facility] DATE CREATED AUTHOR AUTHOR'S ORGANIZ ATION 11/08/2024 [facility] DATE CREATED AUTHOR AUTHOR'S ORGANIZ ATION 12/11/2024 [facility] Source Comments (unrecognize d section and content) In the event this informatio n is protected by the Federal Confidentiality of Alcohol and Drug Abuse Patient Records regulations: The Federal rules restrict any use of the information to criminally investigate or prosecute any alcohol or drug abuse patient.[facility] CenterIn the event this information is protected by the Federal Confidentiality of Alcohol and Drug Abuse Patient Records regulations: The Federal rules restrict any use of the information to criminally investigate or prosecute any alcohol or drug abuse patient.[facility] CenterIn the event this information is protected by the Federal Confidentiality of Alcohol and Drug Abuse Patient Records regulations: The Federal rules restrict any use of the information to criminally investigate or prosecute any alcohol or drug abuse patient.[facility] CenterIn the event this information is protected by the Federal Confidentiality of Alcohol and Drug Abuse Patient Records regulations: The Federal rules restrict any use of the information to criminally investigate or prosecute any alcohol or drug abuse patient.[facility] CenterIn the event this information is protected by the Federal Confidentiality of Alcohol and Drug Abuse Patient Records regulations: The Federal rules restrict any use of the information to criminally investigate or prosecute any alcohol or drug abuse patient.[facility] CenterIn the event this information is protected by the Federal Confidentiality of Alcohol and Drug Abuse Patient Records regulations: The Federal rules restrict any use of the information to criminally investigate or prosecute any alcohol or drug abuse patient.[facility] CenterIn the event this information is protected by the Federal Confidentiality of Alcohol and Drug Abuse Patient Records regulations: The Federal rules restrict any use of the information to criminally investigate or prosecute any alcohol or drug abuse patient.[facility] CenterIn the event this information is protected by the Federal Confidentiality of Alcohol and Drug Abuse Patient Records regulations: The Federal rules restrict any use of the information to criminally investigate or prosecute any alcohol or drug abuse patient.[facility] CenterIn the event this information is protected by the Federal Confidentiality of Alcohol and Drug Abuse Patient Records regulations: The Federal rules restrict any use of the information to criminally investigate or prosecute any alcohol or drug abuse patient.[facility] CenterIn the event this information is protected by the Federal Confidentiality of Alcohol and Drug Abuse Patient Records regulations: The Federal rules restrict any use of the information to criminally investigate or prosecute any alcohol or drug abuse patient.[facility] CenterIn the event this information is protected by the Federal Confidentiality of Alcohol and Drug Abuse Patient Records regulations: The Federal rules restrict any use of the information to criminally investigate or prosecute any alcohol or drug abuse patient.[facility] CenterIn the event this information is protected by the Federal Confidentiality of Alcohol and Drug Abuse Patient Records regulations: The Federal rules restrict any use of the information to criminally investigate or prosecute any alcohol or drug abuse patient.[facility] CenterIn the event this information is protected by the Federal Confidentiality of Alcohol and Drug Abuse Patient Records regulations: The Federal rules restrict any use of the information to criminally investigate or prosecute any alcohol or drug abuse patient.[facility] CenterIn the event this information is protected by the Federal Confidentiality of Alcohol and Drug Abuse Patient Records regulations: The Federal rules restrict any use of the information to criminally investigate or prosecute any alcohol or drug abuse patient.[facility] CenterIn the event this information is protected by the Federal Confidentiality of Alcohol and Drug Abuse Patient Records regulations: The Federal rules restrict any use of the information to criminally investigate or prosecute any alcohol or drug abuse patient.[facility] CenterIn the event this information is protected by the Federal Confidentiality of Alcohol and Drug Abuse Patient Records regulations: The Federal rules restrict any use of the information to criminally investigate or prosecute any alcohol or drug abuse patient.[facility] CenterIn the event this information is protected by the Federal Confidentiality of Alcohol and Drug Abuse Patient Records regulations: The Federal rules restrict any use of the information to criminally investigate or prosecute any alcohol or drug abuse patient.[facility] CenterIn the event this information is protected by the Federal Confidentiality of Alcohol and Drug Abuse Patient Records regulations: The Federal rules restrict any use of the information to criminally investigate or prosecute any alcohol or drug abuse patient.[facility] CenterIn the event this information is protected by the Federal Confidentiality of Alcohol and Drug Abuse Patient Records regulations: The Federal rules restrict any use of the information to criminally investigate or prosecute any alcohol or drug abuse patient.[facility] CenterIn the event this information is protected by the Federal Confidentiality of Alcohol and Drug Abuse Patient Records regulations: The Federal rules restrict any use of the information to criminally investigate or prosecute any alcohol or drug abuse patient.[facility] CenterIn the event this information is protected by the Federal Confidentiality of Alcohol and Drug Abuse Patient Records regulations: The Federal rules restrict any use of the information to criminally investigate or prosecute any alcohol or drug abuse patient.[facility] CenterIn the event this information is protected by the Federal Confidentiality of Alcohol and Drug Abuse Patient Records regulations: The Federal rules restrict any use of the information to criminally investigate or prosecute any alcohol or drug abuse patient.[facility] CenterIn the event this information is protected by the Federal Confidentiality of Alcohol and Drug Abuse Patient Records regulations: The Federal rules restrict any use of the information to criminally investigate or prosecute any alcohol or drug abuse patient.[facility] CenterIn the event this information is protected by the Federal Confidentiality of Alcohol and Drug Abuse Patient Records regulations: The Federal rules restrict any use of the information to criminally investigate or prosecute any alcohol or drug abuse patient.[facility] CenterIn the event this information is protected by the Federal Confidentiality of Alcohol and Drug Abuse Patient Records regulations: The Federal rules restrict any use of the information to criminally investigate or prosecute any alcohol or drug abuse patient.[facility] CenterIn the event this information is protected by the Federal Confidentiality of Alcohol and Drug Abuse Patient Records regulations: The Federal rules restrict any use of the information to criminally investigate or prosecute any alcohol or drug abuse patient.[facility] CenterIn the event this information is protected by the Federal Confidentiality of Alcohol and Drug Abuse Patient Records regulations: The Federal rules restrict any use of the information to criminally investigate or prosecute any alcohol or drug abuse patient.[facility] CenterIn the event this information is protected by the Federal Confidentiality of Alcohol and Drug Abuse Patient Records regulations: The Federal rules restrict any use of the information to criminally investigate or prosecute any alcohol or drug abuse patient.[facility] Reason for Visit (unrecogniz ed section [...] Comments request for medication Reason Comments [facility] requesting verbal agree to f ollow Care Teams (unrecognized sec tion and content) Legal Administrative Assistant Relationship Specialty Start Date End Date Kameron Caruso MD [address] [place] [address] PCP - General Family Practice 09/21/15 Legal Administrative Assistant Relationship Specialty Start Date End Date Kameron Caruso MD [address] [place] [address] PCP - General Family Practice 09/21/15 Legal Administrative Assistant Relationship Specialty Start Date End Date Kameron Caruso MD [address] [place] [address] PCP - General Family Practice 09/21/15 Legal Administrative Assistant Relationship Specialty Start Date End Date Kameron Caruso MD [address] [facility] [place] [address] PCP - General Family Practice 09/21/15 Legal Administrative Assistant Relationship Specialty Start Date End Date Kameron Caruso MD [address] [place] [address] PCP - General Family Practice 09/21/15 Legal Administrative Assistant Relationship Specialty Start Date End Date Kameron Caruso MD [address] [place] [address] PCP - General Family Practice 09/21/15 Legal Administrative Assistant Relationship Specialty Start Date End Date Kameron Caruso MD [address] [place] [address] PCP - General Family Medicine 09/21/15 Legal Administrative Assistant Relationship Specialty Start Date End Date Kameron Caruso MD [address] [facility] [place] [address] PCP - General Family Medicine 09/21/15 Legal Administrative Assistant Relationship Specialty Start Date End Date Kameron Caruso MD [address] [place] [address] PCP - General Family Medicine 09/21/15 Legal Administrative Assistant Relationship Specialty Start Date End Date Kameron Caruso MD [address] [place] [address] PCP - General Family Medicine 09/21/15 Legal Administrative Assistant Relationship Specialty Start Date End Date Kameron Caruso MD [address] [place] [address] PCP - General Family Medicine 09/21/15 Legal Administrative Assistant Relationship Specialty Start Date End Date Kameron Caruso MD [address] [place] [address] PCP - General Family Medicine 09/21/15 Legal Administrative Assistant Relationship Specialty Start Date End Date Kameron Caruso MD [address] [place] [address] PCP - General Family Medicine 09/21/15 Legal Administrative Assistant Relationship Specialty Start Date End Date Kameron Caruso MD [address] [place] [address] PCP - General Family Medicine 09/21/15 Legal Administrative Assistant Relationship Specialty Start Date End Date Kameron Caruso MD [address] [place] [address] PCP - General Family Medicine 09/21/15 Legal Administrative Assistant Relationship Specialty Start Date End Date Kameron Caruso MD [address] [place] [address] PCP - General Family Medicine 09/21/15 Emma Sotomayor APRN.MULTIFOCAL BUTTON GRINDER [address] [place] [address] Call Out Clerk Family Medicine 04/21/24 Mj Glover APRN.MULTIFOCAL BUTTON GRINDER [address] [place] [address] Call Out Clerk Family Medicine 04/30/24 Legal Administrative Assistant Relationship Specialty Start Date End Date Kameron Caruso MD [address] [place] [address] PCP - General Family Medicine 09/21/15 Emma Sotomayor APRN.MULTIFOCAL BUTTON GRINDER [address] [place] [address] Call Out Clerk Family Medicine 04/21/24 Mj Glover APRN.MULTIFOCAL BUTTON GRINDER [address] [place] [address] [facility] 04/30/24 Legal Administrative Assistant Relationship Specialty Start Date End Date Kameron Caruso MD [address] [place] [address] PCP - General Family Medicine 09/21/15 Emma Sotomayor APRN.MULTIFOCAL BUTTON GRINDER [address] [place] [address] Call Out Clerk Family Medicine 04/21/24 Mj Glover APRN.MULTIFOCAL BUTTON GRINDER [address] [place] [address] Call Out Clerk Family Medicine 04/30/24 Legal Administrative Assistant Relationship Specialty Start Date End Date Kameron Caruso MD [address] [place] [address] PCP - General Family Medicine 09/21/15 Emma Sotomayor APRN.MULTIFOCAL BUTTON GRINDER [address] [place] [address] Call Out Clerk Family Medicine 04/21/24 Mj Glover APRN.MULTIFOCAL BUTTON GRINDER [address] [place] [address] Call Out Clerk Family Medicine 04/30/24 Legal Administrative Assistant Relationship Specialty Start Date End Date Kameron Caruso MD [address] [place] [address] PCP - General Family Medicine 09/21/15 Emma Sotomayor APRN.MULTIFOCAL BUTTON GRINDER [address] [place] [address] Call Out Clerk Family Medicine 04/21/24 Mj Glover APRN.MULTIFOCAL BUTTON GRINDER [address] [place] [address] Call Out Clerk Family Medicine 04/30/24 Legal Administrative Assistant Relationship Specialty Start Date End Date Kameron Caruso MD [address] [place] [address] PCP - General Family Medicine 09/21/15 Emma Sotomayor APRN.MULTIFOCAL BUTTON GRINDER [address] [place] [address] Call Out Clerk Family Medicine 04/21/24 Mj Glover APRN.MULTIFOCAL BUTTON GRINDER [address] [place] [address] Call Out Clerk Family Medicine 04/30/24 Legal Administrative Assistant Relationship Specialty Start Date End Date Kameron Caruso MD [address] [place] [address] PCP - General Family Medicine 09/21/15 Emma Sotomayor APRN.MULTIFOCAL BUTTON GRINDER [address] [place] [address] Call Out Clerk Family Medicine 04/21/24 Mj Glover APRN.MULTIFOCAL BUTTON GRINDER [address] [place] [address] Call Out Clerk Family Medicine 04/30/24 Team Status: Active Member Role Status Dates Dr. Kameron Caruso MD Primary Care Provider Active Team Status: Inactive Member Role Status Dates Dr. Kameron Caruso MD Primary Care Provider Active Start: August 02, 2024 End: August 02, 2024 Dr. Pieter Morgan MD Emergency Provider Active Start: August 02, 2024 End: August 02, 2024 Legal Administrative Assistant Relationship Specialty Start Date End Date Kameron Caruso MD [address] [place] [address] PCP - General Family Medicine 08/03/24 Legal Administrative Assistant Relationship Specialty Start Date End Date Kameron Caruso MD [address] [place] [id number] PCP - General Family Medicine 09/21/15 Emma Sotomayor APRN.[employer] [address] [place] [address] Call Out Clerk Family Medicine 04/21/24 Mj Glover APRN.[employer] [address] [place] [address] Call Out Clerk Family Medicine 04/30/24 Team Status: Inactive Member [...] End: September 11, 2024 Bret Snyder NP, ACUTE CARE NURSE-C Attending Provider Active Start: September 11, 2024 [...] 2024 End: October 09, 2024 Bret Snyder ACUTE CARE NURSE, ACUTE CARE NURSE-C Attending Provider Active Start: October 09, 2024 End: October 09, 2024 Team Status: Active Member Role/Relationship Status Dates Dr. Kameron Caruso MD Primary Care Provider Active Start: October 15, 2024 Safia VARGAS MD Attending Provider Active Start: October 15, 2024 Team Status: Active Member Role/Relationship Status Dates Dr. Kameron Caruos MD Primary Care Provider Active Start: October [...] 2024 End: October 30, 2024 Bret Snyder ACUTE CARE NURSE, ACUTE CARE NURSE-C Attending Provider Active Start: October 30, 2024 [...] End: October 22, 2024 Bret Snyder NP, ACUTE CARE NURSE-C Attending Provider Active Start: October 22, 2024 [...] End: October 30, 2024 Bret Snyder NP, ACUTE CARE NURSE-C Attending Provider Active Start: October 30, 2024 [...] 2024 End: October 30, 2024 Bret Snyder NP ACUTE CARE NURSE-C Attending Provider Active Start: October 30, 2024 [...] Shanna Catalan RN) 08 (Given - Provider: Robosn Steel RN) Atorvastatin (LIPITOR) tablet 80 mg [...] Nasal, 2 TIMES DAILY, First dose on 08/10/24 at 2200, Until Discontinued, Dose is for [...] Palmer RN) 0044 (Given - Provider: Shaila nEg RN)0624 (Given - Provider: Shaila Eng RN)1218 [...] before and 1 hour after medication administration. 09 (Given - Provider: Shanna Palmer RN) 100 (Given - Provider: Eneida Cespedes RN) 900 (Given - Provider: Robson Steel RN) Lisinopril [...] Eng RN) 2041 (Given - Provider: Shanna Catalan, ZOE) Metoprolol (LOPRESSOR) tablet 50 mg 50 mg, PEG Tube, EVERY 12 HOURS, First dose (after last modification) on Mon08/09/24 at 2100, Until Discontinued 903 (Given - Provider: Shanna Palmer RN)1946 (Given - Provider: Shaila Eng RN) 0849 [...] Shanna Palmer RN - Reason: Patient with symptoms)1922 (Not Given - Provider: Shaila Eng RN [...] Shanna Catalan RN)0721 (Rate/Dose Change - Provider: Shnana Catalan RN) Water liquid (free water) 150 [...] of medication order) Continuous Medication Order 08/13/2024 08/14/202408/15/2024 Glucerna 1.5 Ruiz LIQD () PEG Tube, [...] glucose is greater than 200mg/dl, then notify boiler house mechanic. And BLOOD GLUCOSE (POC DEVICE) (CANCELED) Routine, [...] 50% needed, contact pharmacy or obtain from [facility] cart ++ And glucose (GLUTOSE) 40 % [...] at 1301, Until Specified, Who to Notify: [place] [employer], For all Blood Glucose LESS THAN 80 mg/dl, notify [place] [employer] after treatment per Hypoglycemia in Non- Adults [...] BE BASED ON THE PRIMARY CLINICAL RECORDS. [facility] [email or web address] [facility]. provides no warranty or guarantee of the accuracy or completeness of information in this document.
[2024-12-17 09:38] LABS: Hematocrit 40.2 % (37-47); Hemoglobin 12.7 g/dL (12.0-15.0); Immature Granulocytes Count 0.040 X10^3/uL (0.0-0.0); Mean Corp Hgb Conc 31.6 g/dL (32-36); Mean Corpuscular Volume 92.2 fL (81-99); Mean Platelet Vol. 11.9 fl (6.2-12.0); NRBC Flagged by Analyzer 0 % (0-5); Platelet Count 287 K/mm3 (150-450); RBC Distribution Width CV 14.1 % (11.6-14.6); RBC Distribution Width SD 47.3 fl (35.1-43.9); Red Blood Count 4.36 M/mm3 (4.2-5.4); White Blood Count 9.6 K/mm3 (4.4-11.0)
[2024-12-17 10:05] LABS: Anion Gap 15 (5-15); BUN 18 mg/dL (4-19); BUN/Creat Ratio 23.4 RATIO (10-20); Calcium,Total 9.2 mg/dL (7.6-11.0); Carbon Dioxide 22.1 mmol/L (21.0-32.0); Chloride 102 mmol/L (98-108); Glucose 125 mg/dL (70-99); Potassium 3.5 mmol/L (3.3-5.1)
== END ==
LOC: OLS.WHLTCC 05:00
PROVIDERS: PCP Family Medicine; Visit Provider Internal Medicine
DX: E11.9 Type 2 diabetes mellitus without complications (principal); I10 Essential (primary) hypertension; I69.354 Hemiplegia and hemiparesis following cerebral infarction affecting left non-dominant side
CPT/HCPCS: 36415; 80048; 85025

== ENCOUNTER → 2024-12-24 05:00 | Outpatient (REF) | payer MEDICARE, SELFPAY ==
--- OUTSIDE RECORDS SUMMARY | 2024-12-24 03:52 | XMS RPT_ITS | CCD ---
Author Organization [facility] Care Team Providers Care Asset Coordinator Name Role Phone KETTY DOWNS Attending Unavailable [...] Kameron Caruso MD Primary Care Provider Светлана ELECTRONIC ORGAN TECHNICIAN.Emma TUCKER Unavailable Saurav ELECTRONIC ORGAN TECHNICIAN.Mj TUCKER Unavailable JUVENTINO ROGERS Attending Unavailable JUVENTINO ROGERS Admitting Unavailable CATA ALFRED Attending Unavailable CATA ALFRED Admitting Unavailable Dr. Kameron Caruso MD Primary Care Provider Dr. Pieter Morgan MD Emergency Provider Kameron Caruso MD Primary Care Provider Светлана ELECTRONIC ORGAN TECHNICIAN.Emma TUCKER Unavailable Unavail able KAMERON CARUSO Referring [...] ZULY LAWSON, DR MELO Primary Care Physician [phone] Cathy LAWSON, Dr. Stapleton Attending Provider Safia Ruelas MD Attending Provider Unavailjair Caruso MD, Dr. Melo Referring Provider Makayla LAWSON, Dr. Barker Attending Provider ZULY LAWSON, DR MELO Primary Care Unavailab le SCHEBEULAH PALMER, SILVINO Admitting Unavailable SCHEATZSHITAL PALMER, SILVINO Attending Unavailable BRYON LAWSON, DR REECE Consulting Unavailab shital HUTTON DO, NANDO Consulting Unavailable SUDARSHAN ARTN-FOUNDER PRESIDENT AND CEO, AMI Hwang Consulting Unavaila ari GIBSON PhD, MATTHEW Zamudio Consulting Unavailable CHRISTOS VOSS Attending Unavailable CONSULT, GASTROENTEROLOGY Consulting PIETER Wolf Referring Unavailable PREMA RAMOS Admitting Unavailable KAMERON CARUSO Primary Care Unavailable RICHARD MEJIA Referring Unavailable LUCINDA PEACOCK Attending Unavailable LUCINDA PEACOCK Admitting Unavailable Jessenia LAWSON, Dr. Baig Attending Provider Claudio HEARING AID ASSISTANT-CBret Attending Provider Safia Ruelas MD Referring Provider UnavailKameron Marquez Primary Care Unavailable Safia Ruelas Attending Unavailable Kameron Caruso Primary Care Unavailable Bret Snyder NP Attending Unavailable Kameron Caruso Referring Unavailable Mj Benavides Attending Unavailable Zuly, Kameron Primary Care Unavailable Safia Ruelas Attending Unavailable Kameron Caruso Primary Care Unavailable Zuly, Kameron Primary Care Unavailable Safia Vanegas Attending Unavailabl e Safia Vanegas Attending Unavailabl e Zuly, Kameron Primary Care Unavailable Oleghe OLS, Efewongbe Attending Unavailabl e [place], Kameron Primary Care Unavailable Oleghe OLS, Efewongbe Attending Unavailabl e [place], Kameron Primary Care Unavailable Oleghe OLS, Efewongbe Attending Unavailabl e [place], Kameron Primary Care Unavailable Bret Snyder NP Attending Unavailable [place], Kameron Primary Care Unavailable [...] Unavailable Oleghe OLS, Efewongbe Referring Unavailabl e Oleghe OLS, Efewongbe Attending Unavailabl e [place], Kameron Primary Care Unavailable Oleghe OLS, Efewongbe Referring Unavailabl e Oleghe OLS, Efewongbe Attending Unavailabl e [place], Kameron Primary Care Unavailable Oleghe OLS, Efewongbe Attending Unavailabl e [place], Kameron Primary Care Unavailable Oleghe OLS, Efewongbe Attending Unavailabl e [place], Kameron Primary Care Unavailable [place], Kameron Primary Care Unavailable Bret Snyder NP Attending Unavailable [place], Kameron Primary Care Unavailable Claudio HEARING AID ASSISTANTBret Attending Unavailable Allergies Allergy Classification Reported Allergen(s) Allergy Type Date of Onset Reaction(s) Facility (2 sources) Sulfonamides (Antibiotic) Propensity to adverse reactions to drug 6 Other (See Comments) [place], [place] (2 sources) Other Propensity to adverse reactions 6 Shortness Of Breath [facility] [place] (20 sources) Benzocaine; Translations: [BENZOCAINE] Drug Allergy 6 Rash [facility] Work Phone: (20 sources) Cocaine; Translations: [COCAINE] Drug Allergy 9 Inverted T waves [facility] Work Phone: (20 sources) Sulfonamides (Antibiotic); Translations: [SULFA (SULFONAMIDE ANTIBIOTICS)] Propensity to adverse reactions 6 Intolerance [facility] Work Phone: (20 sources) Perfumes; Translations: [PERFUMES] Propensity to adverse reactions 6 Shortness of Breath [facility] Work Phone: (6 sources) Sulfonamides (Antibiotic) Allergy to substance 5 Unknown [facility] (8 sources) perfume; Translations: [perfume] Allergy to substance 5 Shortness of breath [facility] (1 source) Cocaine; Translations: [cocaine nasal] Drug Allergy [facility] (1 source) Codeine; Translations: [codeine] Drug Allergy Pharyngeal swelling (finding) [facility] (1 source) Sulfonamide; Translations: [sulfa drugs] Drug allergy [facility] (1 source) Benzocaine Drug Allergy 5 [facility] (1 source) Cocaine Drug Allergy 5 [facility] (1 source) Sulfonamides (Antibiotic) Drug allergy (disorder) 5 [facility] Medications Current Medications Medication Drug Class(es) [...] kidney disease, unspecified CKD stage, unspecified whether mcfp insulin use (HCC) , Type 2 diabetes [...] BY MO UT ONCE DAILY WITH BREAKFAST methylPREDNISolone (1 source) [...] kidney disease, unspecified CKD stage, 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] Onset: 5 Episodic Other aftercare (1 source) senior living (current) use of anticoagulants; Translations: [senior living (current) use of anticoagulants] Onset: 5 Episodic Other aftercare (1 source) 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; Translations: [...] Auto (Unsp spec) [#/Vol] 2.99 10*3/uL 0.83-4.51 [facility] Absolute neutrophil countOrd ered By: Safia Ruelas on 11-26-2024 Neutrophils (Bld) [#/Vol] 4.2 10*3/uL 2.0-7.7 [facility] Anion gap in Serum or Plasma Ordered By: Safia uRelas on 11-26-2024 Anion gap [Moles/Vol] 13 mmol/L 5-15 [facility] Automated lymphocyte count a s percentage of total leukocytesOrdered By: Safia Ruelas on 11-26-2024 Lymphocytes/100 WBC Auto (Unsp spec) 37.1 % 19-41 [facility] BUN/creatinine ratioOrdered By: Safia Ruelas on 11-26-2024 Urea nitrogen/Creatinine [Mass ratio] 24.3 mg/mg High 10-20 [facility] Basophil percentageOrdered B y: Safia Ruelas on 11-26-2024 Basophils/100 WBC (Bld) 0.7 % 0-[address] [facility] Carbon dioxide, total [Moles /volume] in Central venous bloodOrdered By: Safia Ruelas on 11-26-2024 CO2 [Moles/Vol] 27.1 mmol/L 21.0-32.0 [facility] Chloride assayOrdered By: Balbir Ruelas on 11-26-2024 Chloride [Moles/Vol] 101 mmol/L 98-108 [facility] Eosinophil percentageOrdered By: Safia Ruelas on 11-26-2024 Eosinophils/100 WBC (Bld) 1.9 % 0-5 [facility] Erythrocyte distribution wid th ratioOrdered By: Safia Ruelas on 11-26-2024 Erythrocyte distribution width (RBC) [Ratio] 14.2 % 11.6-14.6 [facility] Erythrocyte distribution wid th standard deviationOrdered By: Safia Ruelas on 11-26-2024 Erythrocyte distribution width (RBC) [Ratio] 48.0 fl High 35.1-43.9 [facility] Glomerular filtration rate ( GFR) estimation/1.73 sq m using serum, plasma, or whole bOrdered By: Safia Ruelas on 11-26-2024 GFR/1.73 sq M.predicted among non-blacks MDRD (S/P/Bld) [Vol rate/Area] 63 mL/min/{1.73_m2} >60 [facility] Comment on above: mL/min/1.73m2 CKD-EP I Creatinine Equation (2020) Hematocrit Auto (Bld) [Volum e fraction]Ordered By: Safia Ruelas on 11-26-2024 Hematocrit (Bld) [Volume fraction] 42.7 % 37-47 [facility] Hemoglobin measurementOrdere d By: Safia Ruelas on 11-26-2024 Hemoglobin (Bld) [Mass/Vol] 13.6 g/dL 12.0-15.0 [facility] Immature granulocytes/100 WB C Auto (Bld)Ordered By: Safia Ruelas 11-26-2024 Immature granulocytes/100 WBC (Bld) 0.500 % 0.0-0.9 [facility] Comment on above: IG% - Immature Granu locytes (promyelocytes, myelocytes and metamyelocytes) > 1% indicates that a LEFT SHIFT is Present. MCV (mean corpuscular volume ) determinationOrdered By: Safia Ruelas on 11-26-2024 MCV (RBC) [Entitic vol] 92.0 fL 81-[address] [facility] Mean corpuscular hemoglobin (MCH) determinationOrdered By: Safia Ruelas 11-26-2024 MCH (RBC) [Entitic mass] 29.3 pg 27.0-32.0 [facility] Mean corpuscular hemoglobin concentration (MCHC) determinationOrdered By: Safia Ruelas 11-26-2024 MCHC (RBC) [Mass/Vol] 31.9 g/dL Low 32-36 [facility] Mean platelet volume determi nationOrdered By: Balbirjean mariedesireeskye Griderbonimelanie on 11-26-2024 Platelet mean volume (Bld) [Entitic vol] 11.5 fL 6.2-12.0 [facility] Monocyte percentageOrdered B y: Leonidesdesireeskye Griderbonimelanie on 11-26-2024 Monocytes/100 WBC (Bld) 7.7 % 0-[address] [facility] Neutrophil percentageOrdered By: Safia Griderbonimelanie on 11-26-2024 Neutrophils/100 WBC (Bld) 52.1 % 47-70 [facility] Nucleated red blood cell per centageOrdered By: Balbirjean mariedesireeskye Griderbonimelanie on 11-26-2024 Nucleated RBC/100 WBC (Bld) [Ratio] 0 % 0-5 [facility] Platelet countOrdered By: Balbir randallskye Griderbonimelanie on 11-26-2024 Platelets (Bld) [#/Vol] 283 10*3/uL 150-450 [facility] Potassium measurement (mass/ volume)Ordered By: Safia Griderbonimelanie on 11-26-2024 Potassium (Unsp spec) [Mass/Vol] 3.8 mmol/L 3.3-5.1 [facility] RBC Auto (Bld) [#/Vol]Ordere d By: Leonidesdesireeskye Griderbonimelanie on 11-26-2024 RBC (Bld) [#/Vol] 4.64 10*6/uL 4.2-5.4 [facility] Serum creatinine measurement (mass/volume)Ordered By: Safia Ruelas on 11-26-2024 Creatinine [Mass/Vol] 0.92 mg/dL 0.70-1.20 [facility] Serum glucose measurement (m ass/volume)Ordered By: Safia Ruelas on 11-26-2024 Glucose [Mass/Vol] 97 mg/dL 70-99 [facility] Serum or plasma calcium dayna urement (mass/volume)Ordered By: Safia Ruelas on 11-26-2024 Calcium [Mass/Vol] 10.0 mg/dL 7.6-11.0 [facility] Serum or plasma urea nitroge n measurement (mass/volume)Ordered By: Bandarskye Griderbonimelanie on 11-26-2024 Urea nitrogen [Mass/Vol] 22 mg/dL High 4-19 [facility] Sodium levelOrdered By: Leonides chou Cheobonimelanie on 11-26-2024 Sodium [Moles/Vol] 140 mmol/L 133-145 [facility] White blood cell (WBC) count Ordered By: Safia Cheobonimelanie on 11-26-2024 WBC (Bld) [#/Vol] 8.1 10*3/uL 4.4-11.0 [facility] Clostridium difficile detect ion by polymerase chain reactionOrdered By: Balbirjean mariedesireeskye Griderboinmelanie on 11-25-2024 C. difficile DNA CHUCKY+probe Ql (Unsp spec) [facility] Absolute lymphocyte countOrd ered By: Safia Cheobonimelanie on 11-19-2024 Lymphocytes Auto (Unsp spec) [#/Vol] 2.71 10*3/uL 0.83-4.51 [facility] Absolute neutrophil countOrd ered By: Safia Ruelas on 11-19-2024 Neutrophils (Bld) [#/Vol] 5.2 10*3/uL 2.0-7.7 [facility] Anion gap in Serum or Plasma Ordered By: Balbirjean mariedesireeskye Griderbonimelanie on 11-19-2024 Anion gap [Moles/Vol] 12 mmol/L 5-15 [facility] Automated lymphocyte count a s percentage of total leukocytesOrdered By: Balbirjean mariedesireeskye Griderbonimelanie on 11-19-2024 Lymphocytes/100 WBC Auto (Unsp spec) 30.4 % 19-41 [facility] BUN/creatinine ratioOrdered By: Safai Cheoquyen on 11-19-2024 Urea nitrogen/Creatinine [Mass ratio] 25.0 mg/mg High 10-20 [facility] Basophil percentageOrdered B y: Bandarskye Griderbonimelanie on 11-19-2024 Basophils/100 WBC (Bld) 0.6 % 0-[address] [facility] Carbon dioxide, total [Moles /volume] in Central venous bloodOrdered By: Balbirjean mariedesireeskye Griderbonimelanie on 11-19-2024 CO2 [Moles/Vol] 25.5 mmol/L 21.0-32.0 [facility] Chloride assayOrdered By: Balbir Ruelas on 11-19-2024 Chloride [Moles/Vol] 101 mmol/L 98-108 [facility] Eosinophil percentageOrdered By: Safia Ruelas on 11-19-2024 Eosinophils/100 WBC (Bld) 2.1 % 0-5 [facility] Erythrocyte distribution wid th ratioOrdered By: Safia Ruelas on 11-19-2024 Erythrocyte distribution width (RBC) [Ratio] 13.9 % 11.6-14.6 [facility] Erythrocyte distribution wid th standard deviationOrdered By: Safia Ruelas on 11-19-2024 Erythrocyte distribution width (RBC) [Ratio] 46.6 fl High 35.1-43.9 [facility] Glomerular filtration rate ( GFR) estimation/1.73 sq m using serum, plasma, or whole bOrdered By: Safia Ruelas on 11-19-2024 GFR/1.73 sq M.predicted among non-blacks MDRD (S/P/Bld) [Vol rate/Area] 66 mL/min/{1.73_m2} >60 [facility] Comment on above: mL/min/1.73m2 CKD-EP I Creatinine Equation (2020) Hematocrit Auto (Bld) [Volum e fraction]Ordered By: Safia Ruelas 11-19-2024 Hematocrit (Bld) [Volume fraction] 39.2 % 37-47 [facility] Hemoglobin measurementOrdere d By: Safia Ruelas on 11-19-2024 Hemoglobin (Bld) [Mass/Vol] 12.7 g/dL 12.0-15.0 [facility] Immature granulocytes/100 WB C Auto (Bld)Ordered By: Safia Ruelas 11-19-2024 Immature granulocytes/100 WBC (Bld) 0.300 % 0.0-0.9 [facility] Comment on above: IG% - Immature Granu locytes (promyelocytes, myelocytes and metamyelocytes) > 1% indicates that a LEFT SHIFT is Present. MCV (mean corpuscular volume ) determinationOrdered By: Safia Ruelas on 11-19-2024 MCV (RBC) [Entitic vol] 91.4 fL 81-[address] [facility] Mean corpuscular hemoglobin (MCH) determinationOrdered By: Safia Ruelas on 11-19-2024 MCH (RBC) [Entitic mass] 29.6 pg 27.0-32.0 [facility] Mean corpuscular hemoglobin concentration (MCHC) determinationOrdered By: Safia Ruelas on 11-19-2024 MCHC (RBC) [Mass/Vol] 32.4 g/dL 32-36 [facility] Mean platelet volume determi nationOrdered By: Safia Ruelas on 11-19-2024 Platelet mean volume (Bld) [Entitic vol] 11.5 fL 6.2-12.0 [facility] Monocyte percentageOrdered B y: Safia Ruelas on 11-19-2024 Monocytes/100 WBC (Bld) 7.8 % 0-[address] [facility] Neutrophil percentageOrdered By: Safia Ruelas on 11-19-2024 Neutrophils/100 WBC (Bld) 58.8 % 47-70 [facility] Nucleated red blood cell per centageOrdered By: Safia Ruelas on 11-19-2024 Nucleated RBC/100 WBC (Bld) [Ratio] 0 % 0-5 [facility] Platelet countOrdered By: Balbir Ruelas on 11-19-2024 Platelets (Bld) [#/Vol] 300 10*3/uL 150-450 [facility] Potassium measurement (mass/ volume)Ordered By: Safia Ruelas on 11-19-2024 Potassium (Unsp spec) [Mass/Vol] 3.8 mmol/L 3.3-5.1 [facility] RBC Auto (Bld) [#/Vol]Ordere d By: Safia Ruelas on 11-19-2024 RBC (Bld) [#/Vol] 4.29 10*6/uL 4.2-5.4 [facility] Serum creatinine measurement (mass/volume)Ordered By: Safia Ruelas on 11-19-2024 Creatinine [Mass/Vol] 0.88 mg/dL 0.70-1.20 [facility] Serum glucose measurement (m ass/volume)Ordered By: Safia Ruelas on 11-19-2024 Glucose [Mass/Vol] 136 mg/dL High 70-99 [facility] Serum or plasma calcium dayna urement (mass/volume)Ordered By: Safia Ruelas on 11-19-2024 Calcium [Mass/Vol] 9.6 mg/dL 7.6-11.0 [facility] Serum or plasma urea nitroge n measurement (mass/volume)Ordered By: Safia Ruelas on 11-19-2024 Urea nitrogen [Mass/Vol] 22 mg/dL High 4-19 [facility] Sodium levelOrdered By: Leonides jiménezradha Jessenia on 11-19-2024 Sodium [Moles/Vol] 139 mmol/L 133-145 [facility] White blood cell (WBC) count Ordered By: Safia Ruelas on 11-19-2024 WBC (Bld) [#/Vol] 8.9 10*3/uL 4.4-11.0 [facility] Absolute lymphocyte countOrd ered By: Safia Ruelas on 11-12-2024 Lymphocytes Auto (Unsp spec) [#/Vol] 2.49 10*3/uL 0.83-4.51 [facility] Absolute neutrophil countOrd ered By: Safia Ruelas on 11-12-2024 Neutrophils (Bld) [#/Vol] 4.2 10*3/uL 2.0-7.7 [facility] Anion gap in Serum or Plasma Ordered By: Safia Ruelas on 11-12-2024 Anion gap [Moles/Vol] 12 mmol/L 5-15 [facility] Automated lymphocyte count a s percentage of total leukocytesOrdered By: Safia Ruelas on 11-12-2024 Lymphocytes/100 WBC Auto (Unsp spec) 31.9 % 19-41 [facility] BUN/creatinine ratioOrdered By: Safia Ruelas on 11-12-2024 Urea nitrogen/Creatinine [Mass ratio] 28.1 mg/mg High 10-20 [facility] Basophil percentageOrdered B y: Safia Ruelas on 11-12-2024 Basophils/100 WBC (Bld) 0.6 % 0-[address] [facility] Carbon dioxide, total [Moles /volume] in Central venous bloodOrdered By: Safia Ruelas on 11-12-2024 CO2 [Moles/Vol] 25.1 mmol/L 21.0-32.0 [facility] Chloride assayOrdered By: Balbir Ruelas on 11-12-2024 Chloride [Moles/Vol] 102 mmol/L 98-108 [facility] Eosinophil percentageOrdered By: Safia Ruelas on 11-12-2024 Eosinophils/100 WBC (Bld) 2.8 % 0-5 [facility] Erythrocyte distribution wid th ratioOrdered By: jean marielittle lakeskye Ruelas on 11-12-2024 Erythrocyte distribution width (RBC) [Ratio] 13.8 % 11.6-14.6 [facility] Erythrocyte distribution wid th standard deviationOrdered By: jean marielittle lakeskye Ruelas on 11-12-2024 Erythrocyte distribution width (RBC) [Ratio] 46.7 fl High 35.1-43.9 [facility] Glomerular filtration rate ( GFR) estimation/1.73 sq m using serum, plasma, or whole bOrdered By: Safia Ruelas on 11-12-2024 GFR/1.73 sq M.predicted among non-blacks MDRD (S/P/Bld) [Vol rate/Area] 70 mL/min/{1.73_m2} >60 [facility] Comment on above: mL/min/1.73m2 CKD-EP I Creatinine Equation (2020) Hematocrit Auto (Bld) [Volum e fraction]Ordered By: Safia Ruelas on 11-12-2024 Hematocrit (Bld) [Volume fraction] 40.6 % 37-47 [facility] Hemoglobin measurementOrdere d By: Safia Ruelas on 11-12-2024 Hemoglobin (Bld) [Mass/Vol] 13.2 g/dL 12.0-15.0 [facility] Immature granulocytes/100 WB C Auto (Bld)Ordered By: Safia Ruelas on 11-12-2024 Immature granulocytes/100 WBC (Bld) 0.400 % 0.0-0.9 [facility] Comment on above: IG% - Immature Granu locytes (promyelocytes, myelocytes and metamyelocytes) > 1% indicates that a LEFT SHIFT is Present. MCV (mean corpuscular volume ) determinationOrdered By: Safia Ruelas on 11-12-2024 MCV (RBC) [Entitic vol] 92.1 fL 81-[address] [facility] Mean corpuscular hemoglobin (MCH) determinationOrdered By: Safia Ruelas on 11-12-2024 MCH (RBC) [Entitic mass] 29.9 pg 27.0-32.0 [facility] Mean corpuscular hemoglobin concentration (MCHC) determinationOrdered By: Safia Ruelas on 11-12-2024 MCHC (RBC) [Mass/Vol] 32.5 g/dL 32-36 [facility] Mean platelet volume determi nationOrdered By: Safia Ruelas on 11-12-2024 Platelet mean volume (Bld) [Entitic vol] 11.7 fL 6.2-12.0 [facility] Monocyte percentageOrdered B y: Safia Ruelas on 11-12-2024 Monocytes/100 WBC (Bld) 10.0 % 0-[address] [facility] Neutrophil percentageOrdered By: Safia Ruelas on 11-12-2024 Neutrophils/100 WBC (Bld) 54.3 % 47-70 [facility] Nucleated red blood cell per centageOrdered By: Safia Ruelas on 11-12-2024 Nucleated RBC/100 WBC (Bld) [Ratio] 0 % 0-5 [facility] Platelet countOrdered By: Balbir Ruelas on 11-12-2024 Platelets (Bld) [#/Vol] 304 10*3/uL 150-450 [facility] Potassium measurement (mass/ volume)Ordered By: Safia Ruelas on 11-12-2024 Potassium (Unsp spec) [Mass/Vol] 3.9 mmol/L 3.3-5.1 [facility] RBC Auto (Bld) [#/Vol]Ordere d By: Safia Ruelas on 11-12-2024 RBC (Bld) [#/Vol] 4.41 10*6/uL 4.2-5.4 [facility] Serum creatinine measurement (mass/volume)Ordered By: Safia Ruelas on 11-12-2024 Creatinine [Mass/Vol] 0.84 mg/dL 0.70-1.20 [facility] Serum glucose measurement (m ass/volume)Ordered By: Safia Ruelas on 11-12-2024 Glucose [Mass/Vol] 112 mg/dL High 70-99 [facility] Serum or plasma calcium dayna urement (mass/volume)Ordered By: Safia Ruelas on 11-12-2024 Calcium [Mass/Vol] 9.7 mg/dL 7.6-11.0 [facility] Serum or plasma urea nitroge n measurement (mass/volume)Ordered By: Safia Ruelas on 11-12-2024 Urea nitrogen [Mass/Vol] 24 mg/dL High 4-19 [facility] Sodium levelOrdered By: Leonides josé antonio Jessenia on 11-12-2024 Sodium [Moles/Vol] 139 mmol/L 133-145 [facility] White blood cell (WBC) count Ordered By: Safia Ruelas on 11-12-2024 WBC (Bld) [#/Vol] 7.8 10*3/uL 4.4-11.0 [facility] Absolute lymphocyte countOrd ered By: Safia Ruelas on 11-05-2024 Lymphocytes Auto (Unsp spec) [#/Vol] 2.91 10*3/uL 0.83-4.51 [facility] Absolute neutrophil countOrd ered By: Safia Ruelas on 11-05-2024 Neutrophils (Bld) [#/Vol] 4.6 10*3/uL 2.0-7.7 [facility] Anion gap in Serum or Plasma Ordered By: Safia Ruelas on 11-05-2024 Anion gap [Moles/Vol] 13 mmol/L 5-15 [facility] Automated lymphocyte count a s percentage of total leukocytesOrdered By: Safia Ruelas on 11-05-2024 Lymphocytes/100 WBC Auto (Unsp spec) 33.7 % 19-41 [facility] BUN/creatinine ratioOrdered By: Safia Ruelas on 11-05-2024 Urea nitrogen/Creatinine [Mass ratio] 23.3 mg/mg High 10-20 [facility] Basophil percentageOrdered B y: Safia Ruelas on 11-05-2024 Basophils/100 WBC (Bld) 0.9 % 0-[address] [facility] Carbon dioxide, total [Moles /volume] in Central venous bloodOrdered By: jean marielittle lakeskye Ruelas on 11-05-2024 CO2 [Moles/Vol] 24.2 mmol/L 21.0-32.0 [facility] Chloride assayOrdered By: Balbir Ruelas on 11-05-2024 Chloride [Moles/Vol] 102 mmol/L 98-108 [facility] Eosinophil percentageOrdered By: jean marielittle lakeskye Ruelas on 11-05-2024 Eosinophils/100 WBC (Bld) 2.7 % 0-5 [facility] Erythrocyte distribution wid th ratioOrdered By: [facility] Centers[facility] Ruel[facility] on 11-05-2024 Erythrocyte distribution width (RBC) [Ratio] 13.9 % 11.6-14.6 [facility] Erythrocyte distribution wid th standard deviationOrdered By: [facility] Centers[facility]e Ruelas on 11-05-2024 Erythrocyte distribution width (RBC) [Ratio] 47.1 fl High 35.1-43.9 [facility] Glomerular filtration rate ( GFR) estimation/1.73 sq m using serum, plasma, or whole bOrdered By: Safia Ruelas on 11-05-2024 GFR/1.73 sq M.predicted among non-blacks MDRD (S/P/Bld) [Vol rate/Area] 62 mL/min/{1.73_m2} >60 [facility] Comment on above: mL/min/1.73m2 CKD-EP I Creatinine Equation (2020) Hematocrit Auto (Bld) [Volum e fraction]Ordered By: Safia Ruelas on 11-05-2024 Hematocrit (Bld) [Volume fraction] 40.7 % 37-47 [facility] Hemoglobin measurementOrdere d By: Safia Ruelas on 11-05-2024 Hemoglobin (Bld) [Mass/Vol] 12.9 g/dL 12.0-15.0 [facility] Immature granulocytes/100 WB C Auto (Bld)Ordered By: Safia Ruelas on 11-05-2024 Immature granulocytes/100 WBC (Bld) 0.500 % 0.0-0.9 [facility] Comment on above: IG% - Immature Granu locytes (promyelocytes, myelocytes and metamyelocytes) > 1% indicates that a LEFT SHIFT is Present. MCV (mean corpuscular volume ) determinationOrdered By: Safia Ruelas on 11-05-2024 MCV (RBC) [Entitic vol] 92.9 fL 81-[address] [facility] Mean corpuscular hemoglobin (MCH) determinationOrdered By: jean marielittle lakeskye Ruelas on 11-05-2024 MCH (RBC) [Entitic mass] 29.5 pg 27.0-32.0 [facility] Mean corpuscular hemoglobin concentration (MCHC) determinationOrdered By: jean marielittle lakeskye Ruelas on 11-05-2024 MCHC (RBC) [Mass/Vol] 31.7 g/dL Low 32-36 [facility] Mean platelet volume determi nationOrdered By: Safia Ruelas on 11-05-2024 Platelet mean volume (Bld) [Entitic vol] 11.2 fL 6.2-12.0 [facility] Monocyte percentageOrdered B y: Safia Ruelas on 11-05-2024 Monocytes/100 WBC (Bld) 8.6 % 0-[address] [facility] Neutrophil percentageOrdered By: sherry Ruelas on 11-05-2024 Neutrophils/100 WBC (Bld) 53.6 % 47-70 [facility] Nucleated red blood cell per centageOrdered By: Safia Ruelas on 11-05-2024 Nucleated RBC/100 WBC (Bld) [Ratio] 0 % 0-5 [facility] Platelet countOrdered By: Balbir Ruelas on 11-05-2024 Platelets (Bld) [#/Vol] 318 10*3/uL 150-450 [facility] Potassium measurement (mass/ volume)Ordered By: Safia Ruelas on 11-05-2024 Potassium (Unsp spec) [Mass/Vol] 4.0 mmol/L 3.3-5.1 [facility] RBC Auto (Bld) [#/Vol]Ordere d By: Leonidesdesireeskye Ruelas on 11-05-2024 RBC (Bld) [#/Vol] 4.38 10*6/uL 4.2-5.4 [facility] Serum creatinine measurement (mass/volume)Ordered By: Safia Ruelas on 11-05-2024 Creatinine [Mass/Vol] 0.93 mg/dL 0.70-1.20 [facility] Serum glucose measurement (m ass/volume)Ordered By: Safia Ruelas on 11-05-2024 Glucose [Mass/Vol] 70 mg/dL 70-99 [facility] Serum or plasma calcium dayna urement (mass/volume)Ordered By: Safia Ruelas on 11-05-2024 Calcium [Mass/Vol] 9.5 mg/dL 7.6-11.0 [facility] Serum or plasma urea nitroge n measurement (mass/volume)Ordered By: Safia Ruelas on 11-05-2024 Urea nitrogen [Mass/Vol] 22 mg/dL High 4-19 [facility] Sodium levelOrdered By: Leonides josé antonio Choebonimelanie on 11-05-2024 Sodium [Moles/Vol] 139 mmol/L 133-145 [facility] White blood cell (WBC) count Ordered By: Safia Ruelas on 11-05-2024 WBC (Bld) [#/Vol] 8.6 10*3/uL 4.4-11.0 [facility] Absolute lymphocyte countOrd ered By: Safia Ruelas on 10-29-2024 Lymphocytes Auto (Unsp spec) [#/Vol] 2.69 10*3/uL 0.83-4.51 [facility] Absolute neutrophil countOrd ered By: Safia Ruelas on 10-29-2024 Neutrophils (Bld) [#/Vol] 4.5 10*3/uL 2.0-7.7 [facility] Anion gap in Serum or Plasma Ordered By: Safia Ruelas on 10-29-2024 Anion gap [Moles/Vol] 11 mmol/L 5-15 [facility] Automated lymphocyte count a s percentage of total leukocytesOrdered By: Safia Ruelas on 10-29-2024 Lymphocytes/100 WBC Auto (Unsp spec) 32.6 % 19-41 [facility] BUN/creatinine ratioOrdered By: Safia Ruelas on 10-29-2024 Urea nitrogen/Creatinine [Mass ratio] 25.2 mg/mg High 10-20 [facility] Basophil percentageOrdered B y: Safia Ruelas on 10-29-2024 Basophils/100 WBC (Bld) 0.7 % 0-1 [facility] Carbon dioxide, total [Moles /volume] in Central venous bloodOrdered By: Leonideslittle lakeskye Ruelas on 10-29-2024 CO2 [Moles/Vol] 25.7 mmol/L 21.0-32.0 [facility] Chloride assayOrdered By: Balbir Ruelas on 10-29-2024 Chloride [Moles/Vol] 102 mmol/L 98-108 [facility] Eosinophil percentageOrdered By: sherry Ruelas on 10-29-2024 Eosinophils/100 WBC (Bld) 2.1 % 0-5 [facility] Erythrocyte distribution wid th ratioOrdered By: Safia Ruelas on 10-29-2024 Erythrocyte distribution width (RBC) [Ratio] 13.6 % 11.6-14.6 [facility] Erythrocyte distribution wid th standard deviationOrdered By: jean marielittle lakeskye Ruelas on 10-29-2024 Erythrocyte distribution width (RBC) [Ratio] 46.6 fl High 35.1-43.9 [facility] Glomerular filtration rate ( GFR) estimation/1.73 sq m using serum, plasma, or whole bOrdered By: Safia Ruelas on 10-29-2024 GFR/1.73 sq M.predicted among non-blacks MDRD (S/P/Bld) [Vol rate/Area] 59 mL/min/{1.73_m2} Low >60 [facility] Comment on above: mL/min/1.73m2 CKD-EP I Creatinine Equation (2020) Hematocrit Auto (Bld) [Volum e fraction]Ordered By: Safia Ruelas on 10-29-2024 Hematocrit (Bld) [Volume fraction] 37.8 % 37-47 [facility] Hemoglobin measurementOrdere d By: Safia Ruelas on 10-29-2024 Hemoglobin (Bld) [Mass/Vol] 12.2 g/dL 12.0-15.0 [facility] Immature granulocytes/100 WB C Auto (Bld)Ordered By: Safia Ruelas on 10-29-2024 Immature granulocytes/100 WBC (Bld) 0.400 % 0.0-0.9 [facility] Comment on above: IG% - Immature Granu locytes (promyelocytes, myelocytes and metamyelocytes) > 1% indicates that a LEFT SHIFT is Present. MCV (mean corpuscular volume ) determinationOrdered By: Safia Ruelas on 10-29-2024 MCV (RBC) [Entitic vol] 92.2 fL 81-[address] [facility] Mean corpuscular hemoglobin (MCH) determinationOrdered By: jean marielittle lakeskye Ruelas on 10-29-2024 MCH (RBC) [Entitic mass] 29.8 pg 27.0-32.0 [facility] Mean corpuscular hemoglobin concentration (MCHC) determinationOrdered By: Safia Ruelas on 10-29-2024 MCHC (RBC) [Mass/Vol] 32.3 g/dL 32-36 [facility] Mean platelet volume determi nationOrdered By: Safia Ruelas on 10-29-2024 Platelet mean volume (Bld) [Entitic vol] 11.1 fL 6.2-12.0 [facility] Monocyte percentageOrdered B y: Safia Ruelas on 10-29-2024 Monocytes/100 WBC (Bld) 9.9 % 0-[address] [facility] Neutrophil percentageOrdered By: Safia Ruelas on 10-29-2024 Neutrophils/100 WBC (Bld) 54.3 % 47-70 [facility] Nucleated red blood cell per centageOrdered By: Safia Ruelas on 10-29-2024 Nucleated RBC/100 WBC (Bld) [Ratio] 0 % 0-5 [facility] Platelet countOrdered By: Balbir Ruelas on 10-29-2024 Platelets (Bld) [#/Vol] 283 10*3/uL 150-450 [facility] Potassium measurement (mass/ volume)Ordered By: Safia Ruelas on 10-29-2024 Potassium (Unsp spec) [Mass/Vol] 3.9 mmol/L 3.3-5.1 [facility] RBC Auto (Bld) [#/Vol]Ordere d By: Safia Ruelas on 10-29-2024 RBC (Bld) [#/Vol] 4.10 10*6/uL Low 4.2-5.4 [facility] Serum creatinine measurement (mass/volume)Ordered By: Safia Ruelas on 10-29-2024 Creatinine [Mass/Vol] 0.97 mg/dL 0.70-1.20 [facility] Serum glucose measurement (m ass/volume)Ordered By: Safia Ruelas on 10-29-2024 Glucose [Mass/Vol] 74 mg/dL 70-99 [facility] Serum or plasma calcium dayna urement (mass/volume)Ordered By: Safia Ruelas on 10-29-2024 Calcium [Mass/Vol] 9.5 mg/dL 7.6-11.0 [facility] Serum or plasma urea nitroge n measurement (mass/volume)Ordered By: Safia Ruelas on 10-29-2024 Urea nitrogen [Mass/Vol] 24 mg/dL High 4-19 [facility] Sodium levelOrdered By: Leonides Ruelas on 10-29-2024 Sodium [Moles/Vol] 138 mmol/L 133-145 [facility] White blood cell (WBC) count Ordered By: Safia Ruelas on 10-29-2024 WBC (Bld) [#/Vol] 8.3 10*3/uL 4.4-11.0 [facility] Bilirubin Test strip Ql (U)O rdered By: Safia Ruelas on 10-23-2024 Bilirubin Ql (U) Negative Negative [facility] Ketones Test strip Ql (U)Ord ered By: Safia Ruelas on 10-23-2024 Ketones Ql (U) Negative Negative [facility] Nitrite Test strip Ql (U)Ord ered By: Safia Ruelas on 10-23-2024 Nitrite Ql (U) Positive High Negative [facility] Protein Test strip Ql (U)Ord ered By: Safia Ruelas on 10-23-2024 Protein Ql (U) 15 mg/dl High Negative [facility] Urine clarityOrdered By: Augusto Ruelas on 10-23-2024 Clarity (U) Clear Clear [facility] Urine color determinationOrd ered By: Safia Ruelas on 10-23-2024 Color (U) Yellow Yellow [facility] Urine cultureOrdered By: Augusto Ruelas on 10-23-2024 Bacteria identified Cx Nom (U) Klebsiella pneumoniae sp pneum Abnormal [facility] Urine glucose detectionOrder ed By: Safia Ruelas on 10-23-2024 Glucose Ql (U) Normal mg/dl Normal [facility] Urine leukocyte esterase det ection by dipstickOrdered By: Safia Ruelas on 10-23-2024 Leukocyte esterase Test strip Ql (U) 500 /ul High Negative [facility] Urine pHOrdered By: Mazin Ruelas on 10-23-2024 pH (U) 6.0 [pH] 5.0 - 8.0 [facility] Urine specific gravity measu rementOrdered By: Safia Ruelas on 10-23-2024 Specific gravity (U) [Rel density] 1.010 1.002-1.030 [facility] Urine urobilinogen measureme ntOrdered By: Safia Ruelas on 10-23-2024 Urobilinogen Ql (U) Normal mg/dl Normal [facility] Absolute lymphocyte countOrd ered By: Safia Ruelas on 10-22-2024 Lymphocytes Auto (Unsp spec) [#/Vol] 3.07 10*3/uL 0.83-4.51 [facility] Absolute neutrophil countOrd ered By: Safia Ruelas on 10-22-2024 Neutrophils (Bld) [#/Vol] 4.6 10*3/uL 2.0-7.7 [facility] Anion gap in Serum or Plasma Ordered By: Safia Ruelas on 10-22-2024 Anion gap [Moles/Vol] 15 mmol/L 5-15 [facility] Automated lymphocyte count a s percentage of total leukocytesOrdered By: Safia Ruelas on 10-22-2024 Lymphocytes/100 WBC Auto (Unsp spec) 34.8 % 19-41 [facility] BUN/creatinine ratioOrdered By: Safia Ruelas on 10-22-2024 Urea nitrogen/Creatinine [Mass ratio] 28.6 mg/mg High 10-20 [facility] Basophil percentageOrdered B y: Safia Ruelas on 10-22-2024 Basophils/100 WBC (Bld) 0.9 % 0-[address] [facility] Carbon dioxide, total [Moles /volume] in Central venous bloodOrdered By: Safia Ruelas on 10-22-2024 CO2 [Moles/Vol] 23.1 mmol/L 21.0-32.0 [facility] Chloride assayOrdered By: Balbir Ruelas on 10-22-2024 Chloride [Moles/Vol] 100 mmol/L 98-108 [facility] Eosinophil percentageOrdered By: Safia Ruelas on 10-22-2024 Eosinophils/100 WBC (Bld) 3.1 % 0-5 [facility] Erythrocyte distribution wid th ratioOrdered By: Safia Ruelas on 10-22-2024 Erythrocyte distribution width (RBC) [Ratio] 13.6 % 11.6-14.6 [facility] Erythrocyte distribution wid th standard deviationOrdered By: Safia Ruelas on 10-22-2024 Erythrocyte distribution width (RBC) [Ratio] 45.9 fl High 35.1-43.9 [facility] Glomerular filtration rate ( GFR) estimation/1.73 sq m using serum, plasma, or whole bOrdered By: Safia Ruelas on 10-22-2024 GFR/1.73 sq M.predicted among non-blacks MDRD (S/P/Bld) [Vol rate/Area] 60 mL/min/{1.73_m2} >60 [facility] Comment on above: mL/min/1.73m2 CKD-EP I Creatinine Equation (2020) Hematocrit Auto (Bld) [Volum e fraction]Ordered By: jean marielittle lakeskye Ruelas on 10-22-2024 Hematocrit (Bld) [Volume fraction] 40.7 % 37-47 [facility] Hemoglobin measurementOrdere d By: jean marielittle lakeskye Ruelas on 10-22-2024 Hemoglobin (Bld) [Mass/Vol] 13.1 g/dL 12.0-15.0 [facility] Immature granulocytes/100 WB C Auto (Bld)Ordered By: jean marielittle lakeskye Ruelas on 10-22-2024 Immature granulocytes/100 WBC (Bld) 1.400 % High 0.0-0.9 [facility] Comment on above: IG% - Immature Granu locytes (promyelocytes, myelocytes and metamyelocytes) > 1% indicates that a LEFT SHIFT is Present. MCV (mean corpuscular volume ) determinationOrdered By: Leonideslittle lakeskye Ruelas on 10-22-2024 MCV (RBC) [Entitic vol] 91.9 fL 81-99 [facility] Mean corpuscular hemoglobin (MCH) determinationOrdered By: jean marielittle lakeskye Gridermelanie on 10-22-2024 MCH (RBC) [Entitic mass] 29.6 pg 27.0-32.0 [facility] Mean corpuscular hemoglobin concentration (MCHC) determinationOrdered By: jean marielittle lakeskye Rueals on 10-22-2024 MCHC (RBC) [Mass/Vol] 32.2 g/dL 32-36 [facility] Mean platelet volume determi nationOrdered By: jean marielittle lakeskye Ruelas on 10-22-2024 Platelet mean volume (Bld) [Entitic vol] 11.2 fL 6.2-12.0 [facility] Monocyte percentageOrdered B y: Safia Ruelas on 10-22-2024 Monocytes/100 WBC (Bld) 7.7 % 0-[address] [facility] Neutrophil percentageOrdered By: Safia Ruelas on 10-22-2024 Neutrophils/100 WBC (Bld) 52.1 % 47-70 [facility] Nucleated red blood cell per centageOrdered By: Safia Ruelas on 10-22-2024 Nucleated RBC/100 WBC (Bld) [Ratio] 0 % 0-5 [facility] Platelet countOrdered By: Balbir Ruelas on 10-22-2024 Platelets (Bld) [#/Vol] 334 10*3/uL 150-450 [facility] Potassium measurement (mass/ volume)Ordered By: Safia Ruelas on 10-22-2024 Potassium (Unsp spec) [Mass/Vol] 3.7 mmol/L 3.3-5.1 [facility] RBC Auto (Bld) [#/Vol]Ordere d By: Safia Ruelas on 10-22-2024 RBC (Bld) [#/Vol] 4.43 10*6/uL 4.2-5.4 [facility] Serum creatinine measurement (mass/volume)Ordered By: Safia Ruelas on 10-22-2024 Creatinine [Mass/Vol] 0.96 mg/dL 0.70-1.20 [facility] Serum glucose measurement (m ass/volume)Ordered By: Safia Ruelas on 10-22-2024 Glucose [Mass/Vol] 106 mg/dL High 70-99 [facility] Serum or plasma calcium dayna urement (mass/volume)Ordered By: Safia Ruelas on 10-22-2024 Calcium [Mass/Vol] 9.4 mg/dL 7.6-11.0 [facility] Serum or plasma urea nitroge n measurement (mass/volume)Ordered By: Safia Ruelas on 10-22-2024 Urea nitrogen [Mass/Vol] 28 mg/dL High 4-19 [facility] Sodium levelOrdered By: Leonides Ruelas on 10-22-2024 Sodium [Moles/Vol] 138 mmol/L 133-145 [facility] TSH DL <= 0.005 mIU/L QnOrde red By: Safia Ruelas on 10-22-2024 TSH Qn 4.630 uIU/mL High 0.300-4.200 [facility] White blood cell (WBC) count Ordered By: Safia Ruelas on 10-22-2024 WBC (Bld) [#/Vol] 8.8 10*3/uL 4.4-11.0 [facility] Absolute lymphocyte countOrd ered By: Safia Ruelas on 10-15-2024 Lymphocytes Auto (Unsp spec) [#/Vol] 3.04 10*3/uL 0.83-4.51 [facility] Absolute neutrophil countOrd ered By: Safia Ruelas on 10-15-2024 Neutrophils (Bld) [#/Vol] 4.3 10*3/uL 2.0-7.7 [facility] Anion gap in Serum or Plasma Ordered By: Safia Ruelas on 10-15-2024 Anion gap [Moles/Vol] 12 mmol/L 5-15 [facility] Automated lymphocyte count a s percentage of total leukocytesOrdered By: Safia Ruelas on 10-15-2024 Lymphocytes/100 WBC Auto (Unsp spec) 36.7 % 19-41 [facility] BUN/creatinine ratioOrdered By: Safia Ruelas on 10-15-2024 Urea nitrogen/Creatinine [Mass ratio] 36.5 mg/mg High 10-20 [facility] Basophil percentageOrdered B y: Safia Ruelas on 10-15-2024 Basophils/100 WBC (Bld) 0.7 % 0-[address] [facility] Carbon dioxide, total [Moles /volume] in Central venous bloodOrdered By: Safia Ruelas on 10-15-2024 CO2 [Moles/Vol] 25.2 mmol/L 21.0-32.0 [facility] Chloride assayOrdered By: Balbir Ruelas on 10-15-2024 Chloride [Moles/Vol] 100 mmol/L 98-108 [facility] Eosinophil percentageOrdered By: Safia Ruelas on 10-15-2024 Eosinophils/100 WBC (Bld) 2.4 % 0-5 [facility] Erythrocyte distribution wid th ratioOrdered By: Safia Ruelas on 10-15-2024 Erythrocyte distribution width (RBC) [Ratio] 13.5 % 11.6-14.6 [facility] Erythrocyte distribution wid th standard deviationOrdered By: Safia Ruelas on 10-15-2024 Erythrocyte distribution width (RBC) [Ratio] 45.2 fl High 35.1-43.9 [facility] Glomerular filtration rate ( GFR) estimation/1.73 sq m using serum, plasma, or whole bOrdered By: Safia Ruelas on 10-15-2024 GFR/1.73 sq M.predicted among non-blacks MDRD (S/P/Bld) [Vol rate/Area] 71 mL/min/{1.73_m2} >60 [facility] Comment on above: mL/min/1.73m2 CKD-EP I Creatinine Equation (2020) Hematocrit Auto (Bld) [Volum e fraction]Ordered By: Safia Ruelas on 10-15-2024 Hematocrit (Bld) [Volume fraction] 40.3 % 37-47 [facility] Hemoglobin measurementOrdere d By: Safia Ruelas on 10-15-2024 Hemoglobin (Bld) [Mass/Vol] 13.3 g/dL 12.0-15.0 [facility] Immature granulocytes/100 WB C Auto (Bld)Ordered By: Safia Ruelas on 10-15-2024 Immature granulocytes/100 WBC (Bld) 0.400 % 0.0-0.9 [facility] Comment on above: IG% - Immature Granu locytes (promyelocytes, myelocytes and metamyelocytes) > 1% indicates that a LEFT SHIFT is Present. MCV (mean corpuscular volume ) determinationOrdered By: Safia Ruelas on 10-15-2024 MCV (RBC) [Entitic vol] 91.0 fL 81-[address] [facility] Mean corpuscular hemoglobin (MCH) determinationOrdered By: Safia Ruelas on 10-15-2024 MCH (RBC) [Entitic mass] 30.0 pg 27.0-32.0 [facility] Mean corpuscular hemoglobin concentration (MCHC) determinationOrdered By: Safia Ruelas on 10-15-2024 MCHC (RBC) [Mass/Vol] 33.0 g/dL 32-36 [facility] Mean platelet volume determi nationOrdered By: Safia Ruelas on 10-15-2024 Platelet mean volume (Bld) [Entitic vol] 11.9 fL 6.2-12.0 [facility] Monocyte percentageOrdered B y: Safia Ruelas on 10-15-2024 Monocytes/100 WBC (Bld) 8.2 % 0-[address] [facility] Neutrophil percentageOrdered By: Safia Ruelas on 10-15-2024 Neutrophils/100 WBC (Bld) 51.6 % 47-70 [facility] Nucleated red blood cell per centageOrdered By: Safia Ruelas on 10-15-2024 Nucleated RBC/100 WBC (Bld) [Ratio] 0 % 0-5 [facility] Platelet countOrdered By: Balbir Ruelas on 10-15-2024 Platelets (Bld) [#/Vol] 221 10*3/uL 150-450 [facility] Potassium measurement (mass/ volume)Ordered By: Safia Ruelas on 10-15-2024 Potassium (Unsp spec) [Mass/Vol] 3.8 mmol/L 3.3-5.1 [facility] RBC Auto (Bld) [#/Vol]Ordere d By: Safia Ruelas on 10-15-2024 RBC (Bld) [#/Vol] 4.43 10*6/uL 4.2-5.4 [facility] Serum creatinine measurement (mass/volume)Ordered By: Safia Ruelas on 10-15-2024 Creatinine [Mass/Vol] 0.83 mg/dL 0.70-1.20 [facility] Serum glucose measurement (m ass/volume)Ordered By: Safia Ruelas on 10-15-2024 Glucose [Mass/Vol] 68 mg/dL Low 70-99 [facility] Serum or plasma calcium dayna urement (mass/volume)Ordered By: Safia Ruelas on 10-15-2024 Calcium [Mass/Vol] 9.3 mg/dL 7.6-11.0 [facility] Serum or plasma urea nitroge n measurement (mass/volume)Ordered By: Safia Ruelas on 10-15-2024 Urea nitrogen [Mass/Vol] 30 mg/dL High 4-19 [facility] Sodium levelOrdered By: Balbirjean marie josé antonio Jessenia on 10-15-2024 Sodium [Moles/Vol] 138 mmol/L 133-145 [facility] White blood cell (WBC) count Ordered By: Safia Ruelas on 10-15-2024 WBC (Bld) [#/Vol] 8.3 10*3/uL 4.4-11.0 [facility] Absolute lymphocyte countOrd ered By: Safia Ruelas on 10-08-2024 Lymphocytes Auto (Unsp spec) [#/Vol] 2.52 10*3/uL 0.83-4.51 [facility] Absolute neutrophil countOrd ered By: Safia Ruelas on 10-08-2024 Neutrophils (Bld) [#/Vol] 4.9 10*3/uL 2.0-7.7 [facility] Anion gap in Serum or Plasma Ordered By: Safia Ruelas on 10-08-2024 Anion gap [Moles/Vol] 14 mmol/L 5-15 [facility] Automated lymphocyte count a s percentage of total leukocytesOrdered By: Safia Ruelas on 10-08-2024 Lymphocytes/100 WBC Auto (Unsp spec) 29.4 % 19-41 [facility] BUN/creatinine ratioOrdered By: Saifa Ruelas on 10-08-2024 Urea nitrogen/Creatinine [Mass ratio] 34.1 mg/mg High 10-20 [facility] Basophil percentageOrdered B y: Leonidesdesireeskye Ruelas on 10-08-2024 Basophils/100 WBC (Bld) 0.7 % 0-1 [facility] Carbon dioxide, total [Moles /volume] in Central venous bloodOrdered By: Safia Ruelas on 10-08-2024 CO2 [Moles/Vol] 24.0 mmol/L 21.0-32.0 [facility] Chloride assayOrdered By: Balbir Ruelas on 10-08-2024 Chloride [Moles/Vol] 100 mmol/L 98-108 [facility] Eosinophil percentageOrdered By: Safia Ruelas on 10-08-2024 Eosinophils/100 WBC (Bld) 2.6 % 0-5 [facility] Erythrocyte distribution wid th ratioOrdered By: jean marielittle lakeskye Ruelas on 10-08-2024 Erythrocyte distribution width (RBC) [Ratio] 13.2 % 11.6-14.6 [facility] Erythrocyte distribution wid th standard deviationOrdered By: jean marielittle lakeskye Ruelas on 10-08-2024 Erythrocyte distribution width (RBC) [Ratio] 45.3 fl High 35.1-43.9 [facility] Glomerular filtration rate ( GFR) estimation/1.73 sq m using serum, plasma, or whole bOrdered By: sherry Ruelas on 10-08-2024 GFR/1.73 sq M.predicted among non-blacks MDRD (S/P/Bld) [Vol rate/Area] 65 mL/min/{1.73_m2} >60 [facility] Comment on above: mL/min/1.73m2 CKD-EP I Creatinine Equation (2020) Hematocrit Auto (Bld) [Volum e fraction]Ordered By: Safia Ruelas on 10-08-2024 Hematocrit (Bld) [Volume fraction] 41.7 % 37-47 [facility] Hemoglobin measurementOrdere d By: Safia Ruelas on 10-08-2024 Hemoglobin (Bld) [Mass/Vol] 13.3 g/dL 12.0-15.0 [facility] Immature granulocytes/100 WB C Auto (Bld)Ordered By: Safia Ruelas 10-08-2024 Immature granulocytes/100 WBC (Bld) 0.400 % 0.0-0.9 [facility] Comment on above: IG% - Immature Granu locytes (promyelocytes, myelocytes and metamyelocytes) > 1% indicates that a LEFT SHIFT is Present. MCV (mean corpuscular volume ) determinationOrdered By: Safia Ruelas on 10-08-2024 MCV (RBC) [Entitic vol] 92.7 fL 81-[address] [facility] Mean corpuscular hemoglobin (MCH) determinationOrdered By: Safia Ruelas on 10-08-2024 MCH (RBC) [Entitic mass] 29.6 pg 27.0-32.0 [facility] Mean corpuscular hemoglobin concentration (MCHC) determinationOrdered By: Safia Ruelas on 10-08-2024 MCHC (RBC) [Mass/Vol] 31.9 g/dL Low 32-36 [facility] Mean platelet volume determi nationOrdered By: Safia Ruelas on 10-08-2024 Platelet mean volume (Bld) [Entitic vol] 11.0 fL 6.2-12.0 [facility] Monocyte percentageOrdered B y: Safia Ruelas on 10-08-2024 Monocytes/100 WBC (Bld) 9.2 % 0-[address] [facility] Neutrophil percentageOrdered By: Safia Ruelas on 10-08-2024 Neutrophils/100 WBC (Bld) 57.7 % 47-70 [facility] Nucleated red blood cell per centageOrdered By: Safia Ruelas on 10-08-2024 Nucleated RBC/100 WBC (Bld) [Ratio] 0 % 0-5 [facility] Platelet countOrdered By: Balbir Ruelas on 10-08-2024 Platelets (Bld) [#/Vol] 323 10*3/uL 150-450 [facility] Potassium measurement (mass/ volume)Ordered By: Safia Ruelas on 10-08-2024 Potassium (Unsp spec) [Mass/Vol] 4.1 mmol/L 3.3-5.1 [facility] RBC Auto (Bld) [#/Vol]Ordere d By: Safia Ruelas on 10-08-2024 RBC (Bld) [#/Vol] 4.50 10*6/uL 4.2-5.4 [facility] Serum creatinine measurement (mass/volume)Ordered By: Safia Ruelas on 10-08-2024 Creatinine [Mass/Vol] 0.90 mg/dL 0.70-1.20 [facility] Serum glucose measurement (m ass/volume)Ordered By: [facility] Cheomelanie on 10-08-2024 Glucose [Mass/Vol] 82 mg/dL 70-99 [facility] Serum or plasma calcium dayna urement (mass/volume)Ordered By: [facility] on 10-08-2024 Calcium [Mass/Vol] 9.6 mg/dL 7.6-11.0 [facility] Serum or plasma urea nitroge n measurement (mass/volume)Ordered By: [facility] on 10-08-2024 Urea nitrogen [Mass/Vol] 31 mg/dL High 4-19 [facility] Sodium levelOrdered By: [facility] on 10-08-2024 Sodium [Moles/Vol] 138 mmol/L 133-145 [facility] White blood cell (WBC) count Ordered By: [facility] on 10-08-2024 WBC (Bld) [#/Vol] 8.6 10*3/uL 4.4-11.0 [facility] 12 Lead E[facility] performed by [facility] [place] 10-02-2024 12 [place] [address] 12 Lead EKG performed by [facility] 10/02/24 0921 MR#: [id number] Acct: [id number] Name: LINDSAY ACUNA Rep #: [id number] : [id number] From: Mj Benavides MD Attending Dr: Dr. Mj Benavides MD Status: DEP A MB Ordering Dr: Mj Benavides MD Date: 10/02/24 Location: [facility] [place] Sex: F C Admitted: BMS/12 Lead EKG performed by [facility] ECG Report Interpretation ---Atrial fibrillation -irregular conduction -Old anterior infarct. ABNORMAL Electronically signed on 10/02/2024 at 16:06 by Mj Benavides [employer] Version [id number] 10/02/24 1608 Date Mj Benavides MD CC: Dr. Kameron Caruso MD Date Dictated: 10/02/24920 Date Transcribed: 10/02/24920 [employer]: [place] Signed Normal [facility] Visit Reporton Cardiology Visit Report [facility] [address] [place] [address] OFFICE VISIT Date of Service: 10/02/24 MR#: [id number] Acct: [id number] Name: LINDSAY ACUNA Rep #: [id number] : 1945 Provider: Dr. Mj Benavides MD Age/Sex: 78/F Location: [facility] Status: Signed HPI HPI History of [...] now she is currently domiciled in a skilled nursing. Her previous echocardiogram which was performed in [...] d/t W/C bound Intake Visit Reasons: AFIB ([facility]) Rn Faculty Required: No Accompanied by: Significant Other Is [...] you fallen in the past year?: Yes [facility] Medical History Acute ischemic right MCA stroke [...] normal, nasal (more content not included)... Normal [facility] Absolute lymphocyte countOrd ered By: Safia Ruelas on 10-01-2024 Lymphocytes Auto (Unsp spec) [#/Vol] 2.45 10*3/uL 0.83-4.51 [facility] Absolute neutrophil countOrd ered By: Safia Ruelas on 10-01-2024 Neutrophils (Bld) [#/Vol] 6.5 10*3/uL 2.0-7.7 [facility] Anion gap in Serum or Plasma Ordered By: Safia Ruelas on 10-01-2024 Anion gap [Moles/Vol] 12 mmol/L - [facility] Automated lymphocyte count a s percentage of total leukocytesOrdered By: Safia Ruelas on 10-01-2024 Lymphocytes/100 WBC Auto (Unsp spec) 23.1 % [facility] BUN/creatinine ratioOrdered By: Safia Ruelas on 10-01-2024 Urea nitrogen/Creatinine [Mass ratio] 24.9 mg/mg High 10-20 [facility] Basophil percentageOrdered B y: Safia Ruelas on 10-01-2024 Basophils/100 WBC (Bld) 0.5 % 0-[address] [facility] Carbon dioxide, total [Moles /volume] in Central venous bloodOrdered By: Safia Ruelas on 10-01-2024 CO2 [Moles/Vol] 24.4 mmol/L 21.0-32.0 [facility] Chloride assayOrdered By: Balbir Ruelas on 10-01-2024 Chloride [Moles/Vol] 99 mmol/L 98-108 [facility] Eosinophil percentageOrdered By: Safia Ruelas on 10-01-2024 Eosinophils/100 WBC (Bld) 2.0 % 0-5 [facility] Erythrocyte distribution wid th ratioOrdered By: sherry Ruelas on 10-01-2024 Erythrocyte distribution width (RBC) [Ratio] 13.5 % 11.6-14.6 [facility] Erythrocyte distribution wid th standard deviationOrdered By: Leonideslittle lakeskye Ruelas on 10-01-2024 Erythrocyte distribution width (RBC) [Ratio] 46.2 fl High 35.1-43.9 [facility] Glomerular filtration rate ( GFR) estimation/1.73 sq m using serum, plasma, or whole bOrdered By: Safia Ruelas on 10-01-2024 GFR/1.73 sq M.predicted among non-blacks MDRD (S/P/Bld) [Vol rate/Area] 63 mL/min/{1.73_m2} >60 [facility] Comment on above: mL/min/1.73m2 CKD-EP I Creatinine Equation (2020) Hematocrit Auto (Bld) [Volum e fraction]Ordered By: Safia Ruelas on 10-01-2024 Hematocrit (Bld) [Volume fraction] 38.7 % 37-47 [facility] Hemoglobin measurementOrdere d By: Safia Ruelas on 10-01-2024 Hemoglobin (Bld) [Mass/Vol] 12.5 g/dL 12.0-15.0 [facility] Immature granulocytes/100 WB C Auto (Bld)Ordered By: Safia Ruelas on 10-01-2024 Immature granulocytes/100 WBC (Bld) 0.800 % 0.0-0.9 [facility] Comment on above: IG% - Immature Granu locytes (promyelocytes, myelocytes and metamyelocytes) > 1% indicates that a LEFT SHIFT is Present. MCV (mean corpuscular volume ) determinationOrdered By: Safia Ruelas on 10-01-2024 MCV (RBC) [Entitic vol] 93.3 fL 81-[address] [facility] Mean corpuscular hemoglobin (MCH) determinationOrdered By: Morgan Medical Centerskye Ruelas on 10-01-2024 MCH (RBC) [Entitic mass] 30.1 pg 27.0-32.0 [facility] Mean corpuscular hemoglobin concentration (MCHC) determinationOrdered By: jean marielittle lakeskye Ruelas on 10-01-2024 MCHC (RBC) [Mass/Vol] 32.3 g/dL 32-36 [facility] Mean platelet volume determi nationOrdered By: Safia Ruelas on 10-01-2024 Platelet mean volume (Bld) [Entitic vol] 11.7 fL 6.2-12.0 [facility] Monocyte percentageOrdered B y: Balbirjean mariedesireeskye Griderbonimelanie on 10-01-2024 Monocytes/100 WBC (Bld) 12.7 % High 0-[address] [facility] Neutrophil percentageOrdered By: jean marielittle lakeskye Ruelas on 10-01-2024 Neutrophils/100 WBC (Bld) 60.9 % 47-70 [facility] Nucleated red blood cell per centageOrdered By: Safia Ruelas on 10-01-2024 Nucleated RBC/100 WBC (Bld) [Ratio] 0 % 0-5 [facility] Platelet countOrdered By: Balbir randallskye Ruelas on 10-01-2024 Platelets (Bld) [#/Vol] 371 10*3/uL 150-450 [facility] Potassium measurement (mass/ volume)Ordered By: Safia Ruelas on 10-01-2024 Potassium (Unsp spec) [Mass/Vol] 4.2 mmol/L 3.3-5.1 [facility] RBC Auto (Bld) [#/Vol]Ordere d By: Safia Ruelas on 10-01-2024 RBC (Bld) [#/Vol] 4.15 10*6/uL Low 4.2-5.4 [facility] Serum creatinine measurement (mass/volume)Ordered By: Safia Ruelas on 10-01-2024 Creatinine [Mass/Vol] 0.93 mg/dL 0.70-1.20 [facility] Serum glucose measurement (m ass/volume)Ordered By: Safia Ruelas on 10-01-2024 Glucose [Mass/Vol] 93 mg/dL 70-99 [facility] Serum or plasma calcium dayna urement (mass/volume)Ordered By: Safia Ruelas on 10-01-2024 Calcium [Mass/Vol] 9.5 mg/dL 7.6-11.0 [facility] Serum or plasma urea nitroge n measurement (mass/volume)Ordered By: Saifa Ruelas on 10-01-2024 Urea nitrogen [Mass/Vol] 23 mg/dL High 4-19 [facility] Sodium levelOrdered By: Leonides jiménezradha Jessenia on 10-01-2024 Sodium [Moles/Vol] 135 mmol/L 133-145 [facility] White blood cell (WBC) count Ordered By: Safia Ruelas on 10-01-2024 WBC (Bld) [#/Vol] 10.6 10*3/uL 4.4-11.0 [facility] Clostridium difficile detect ion by polymerase chain reactionOrdered By: Safia Ruelas on 09-29-2024 C. difficile DNA CHUCKY+probe Ql (Unsp spec) [facility] Absolute lymphocyte countOrd ered By: Safia Ruelas on 09-24-2024 Lymphocytes Auto (Unsp spec) [#/Vol] 2.72 10*3/uL 0.83-4.51 [facility] Absolute neutrophil countOrd ered By: Safia Ruelas on 09-24-2024 Neutrophils (Bld) [#/Vol] 6.3 10*3/uL 2.0-7.7 [facility] Anion gap in Serum or Plasma Ordered By: Safia Ruelas on 09-24-2024 Anion gap [Moles/Vol] 12 mmol/L 5-15 [facility] Automated lymphocyte count a s percentage of total leukocytesOrdered By: Safia Ruelas on 09-24-2024 Lymphocytes/100 WBC Auto (Unsp spec) 26.3 % 19-41 [facility] BUN/creatinine ratioOrdered By: Safia Ruelas on 09-24-2024 Urea nitrogen/Creatinine [Mass ratio] 36.4 mg/mg High 10-20 [facility] Basophil percentageOrdered B y: Safia Ruelas on 09-24-2024 Basophils/100 WBC (Bld) 0.7 % 0-[address] [facility] Carbon dioxide, total [Moles /volume] in Central venous bloodOrdered By: Safia Ruelas on 09-24-2024 CO2 [Moles/Vol] 24.1 mmol/L 21.0-32.0 [facility] Chloride assayOrdered By: Balbir Ruelas on 09-24-2024 Chloride [Moles/Vol] 100 mmol/L 98-108 [facility] Eosinophil percentageOrdered By: Safia Ruelas on 09-24-2024 Eosinophils/100 WBC (Bld) 2.7 % 0-5 [facility] Erythrocyte distribution wid th ratioOrdered By: Safia Ruelas on 09-24-2024 Erythrocyte distribution width (RBC) [Ratio] 13.6 % 11.6-14.6 [facility] Erythrocyte distribution wid th standard deviationOrdered By: Safia Ruelas on 09-24-2024 Erythrocyte distribution width (RBC) [Ratio] 47.1 fl High 35.1-43.9 [facility] Glomerular filtration rate ( GFR) estimation/1.73 sq m using serum, plasma, or whole bOrdered By: Safia Ruelas on 09-24-2024 GFR/1.73 sq M.predicted among non-blacks MDRD (S/P/Bld) [Vol rate/Area] 62 mL/min/{1.73_m2} >60 [facility] Comment on above: mL/min/1.73m2 CKD-EP I Creatinine Equation (2020) Hematocrit Auto (Bld) [Volum e fraction]Ordered By: Safia Ruelas on 09-24-2024 Hematocrit (Bld) [Volume fraction] 41.2 % 37-47 [facility] Hemoglobin measurementOrdere d By: Safia Ruelas on 09-24-2024 Hemoglobin (Bld) [Mass/Vol] 13.0 g/dL 12.0-15.0 [facility] Immature granulocytes/100 WB C Auto (Bld)Ordered By: Safia Ruelas on 09-24-2024 Immature granulocytes/100 WBC (Bld) 1.000 % High 0.0-0.9 [facility] Comment on above: IG% - Immature Granu locytes (promyelocytes, myelocytes and metamyelocytes) > 1% indicates that a LEFT SHIFT is Present. MCV (mean corpuscular volume ) determinationOrdered By: Safia Ruelas on 09-24-2024 MCV (RBC) [Entitic vol] 94.3 fL 81-[address] [facility] Mean corpuscular hemoglobin (MCH) determinationOrdered By: jean marielittle lakeskye Ruelas on 09-24-2024 MCH (RBC) [Entitic mass] 29.7 pg 27.0-32.0 [facility] Mean corpuscular hemoglobin concentration (MCHC) determinationOrdered By: Safia Ruelas on 09-24-2024 MCHC (RBC) [Mass/Vol] 31.6 g/dL Low 32-36 [facility] Mean platelet volume determi nationOrdered By: Safia Ruelas on 09-24-2024 Platelet mean volume (Bld) [Entitic vol] 11.3 fL 6.2-12.0 [facility] Monocyte percentageOrdered B y: Safia Ruelas on 09-24-2024 Monocytes/100 WBC (Bld) 8.9 % 0-[address] [facility] Neutrophil percentageOrdered By: Safia Ruelas on 09-24-2024 Neutrophils/100 WBC (Bld) 60.4 % 47-70 [facility] Nucleated red blood cell per centageOrdered By: Safia Ruelas on 09-24-2024 Nucleated RBC/100 WBC (Bld) [Ratio] 0 % 0-5 [facility] Platelet countOrdered By: Balbir sherry Cheobonimelanie on 09-24-2024 Platelets (Bld) [#/Vol] 441 10*3/uL 150-450 [facility] Potassium measurement (mass/ volume)Ordered By: Leonidesjosé antonio Cheobonimelanie on 09-24-2024 Potassium (Unsp spec) [Mass/Vol] 4.3 mmol/L 3.3-5.1 [facility] RBC Auto (Bld) [#/Vol]Ordere d By: Balbirsherry Cheobonimelanie on 09-24-2024 RBC (Bld) [#/Vol] 4.37 10*6/uL 4.2-5.4 [facility] Serum creatinine measurement (mass/volume)Ordered By: Balbirjean mariedesireeskye Griderbonimelanie on 09-24-2024 Creatinine [Mass/Vol] 0.93 mg/dL 0.70-1.20 [facility] Serum glucose measurement (m ass/volume)Ordered By: Safia Ruelas on 09-24-2024 Glucose [Mass/Vol] 48 mg/dL Low 70-99 [facility] Serum or plasma calcium dayna urement (mass/volume)Ordered By: Balbirjean mariejosé antonio Cheoquyen on 09-24-2024 Calcium [Mass/Vol] 9.5 mg/dL 7.6-11.0 [facility] Serum or plasma urea nitroge n measurement (mass/volume)Ordered By: Safia Griderbonimelanie on 09-24-2024 Urea nitrogen [Mass/Vol] 34 mg/dL High 4-19 [facility] Sodium levelOrdered By: Leonides chou Cheobonimelanie on 09-24-2024 Sodium [Moles/Vol] 136 mmol/L 133-145 [facility] White blood cell (WBC) count Ordered By: Leonidesdesireeskye Griderbonimelanie on 09-24-2024 WBC (Bld) [#/Vol] 10.4 10*3/uL 4.4-11.0 [facility] Absolute lymphocyte countOrd ered By: Leonidesdesireeskye Gridrebonimelanie on 09-17-2024 Lymphocytes Auto (Unsp spec) [#/Vol] 2.52 10*3/uL 0.83-4.51 [facility] Absolute neutrophil countOrd ered By: Safia Ruelas on 09-17-2024 Neutrophils (Bld) [#/Vol] 5.8 10*3/uL 2.0-7.7 [facility] Anion gap in Serum or Plasma Ordered By: Safia Ruelas on 09-17-2024 Anion gap [Moles/Vol] 12 mmol/L 5-15 [facility] Automated lymphocyte count a s percentage of total leukocytesOrdered By: Safia Ruelas on 09-17-2024 Lymphocytes/100 WBC Auto (Unsp spec) 26.3 % 19-41 [facility] BUN/creatinine ratioOrdered By: Leonideslittle lakeskye Ruelas on 09-17-2024 Urea nitrogen/Creatinine [Mass ratio] 45.9 mg/mg High 10-20 [facility] Basophil percentageOrdered B y: Safia Ruelas on 09-17-2024 Basophils/100 WBC (Bld) 0.6 % 0-[address] [facility] Calculated very low density lipoprotein (VLDL) cholesterol measurementOrdered By: Safia Ruelas on 09-17-2024 Calculated very low density lipoprotein (VLDL) cholesterol measurement 22 mg/dL 5-40 [facility] Carbon dioxide, total [Moles /volume] in Central venous bloodOrdered By: Safia Ruelas on 09-17-2024 CO2 [Moles/Vol] 24.5 mmol/L 21.0-32.0 [facility] Chloride assayOrdered By: Balbir Ruelas on 09-17-2024 Chloride [Moles/Vol] 98 mmol/L 98-108 [facility] Eosinophil percentageOrdered By: aSfia Ruelas on 09-17-2024 Eosinophils/100 WBC (Bld) 3.2 % 0-5 [facility] Erythrocyte distribution wid th ratioOrdered By: Safia Ruelas on 09-17-2024 Erythrocyte distribution width (RBC) [Ratio] 13.4 % 11.6-14.6 [facility] Erythrocyte distribution wid th standard deviationOrdered By: Safia Ruelas on 09-17-2024 Erythrocyte distribution width (RBC) [Ratio] 45.4 fl High 35.1-43.9 [facility] Glomerular filtration rate ( GFR) estimation/1.73 sq m using serum, plasma, or whole bOrdered By: Safia Ruelas on 09-17-2024 GFR/1.73 sq M.predicted among non-blacks MDRD (S/P/Bld) [Vol rate/Area] 69 mL/min/{1.73_m2} >60 [facility] Comment on above: mL/min/1.73m2 CKD-EP I Creatinine Equation (2020) Hematocrit Auto (Bld) [Volum e fraction]Ordered By: Safia Ruelas on 09-17-2024 Hematocrit (Bld) [Volume fraction] 38.8 % 37-47 [facility] Hemoglobin measurementOrdere d By: Safia Ruelas on 09-17-2024 Hemoglobin (Bld) [Mass/Vol] 12.6 g/dL 12.0-15.0 [facility] Immature granulocytes/100 WB C Auto (Bld)Ordered By: Safia Ruelas on 09-17-2024 Immature granulocytes/100 WBC (Bld) 0.700 % 0.0-0.9 [facility] Comment on above: IG% - Immature Granu locytes (promyelocytes, myelocytes and metamyelocytes) > 1% indicates that a LEFT SHIFT is Present. LDL calc ser/plasOrdered By: Safia Ruelas on 09-17-2024 Cholesterol in LDL [Mass/Vol] 120 mg/dL [facility] Comment on above: Bwcdbndlbx=331-804 m g/dL & Higher Hfhl=389 mg/dL or greater MCV (mean corpuscular volume ) determinationOrdered By: Safia Ruelas on 09-17-2024 MCV (RBC) [Entitic vol] 91.7 fL 81-[address] [facility] Mean corpuscular hemoglobin (MCH) determinationOrdered By: Safia Ruelas on 09-17-2024 MCH (RBC) [Entitic mass] 29.8 pg 27.0-32.0 [facility] Mean corpuscular hemoglobin concentration (MCHC) determinationOrdered By: Safia Ruelas on 09-17-2024 MCHC (RBC) [Mass/Vol] 32.5 g/dL 32-36 [facility] Mean platelet volume determi nationOrdered By: Safia Ruelas on 09-17-2024 Platelet mean volume (Bld) [Entitic vol] 11.4 fL 6.2-12.0 [facility] Monocyte percentageOrdered B y: Safia Ruelas on 09-17-2024 Monocytes/100 WBC (Bld) 8.5 % 0-[address] [facility] Neutrophil percentageOrdered By: Safia Ruelas on 09-17-2024 Neutrophils/100 WBC (Bld) 60.7 % 47-70 [facility] Nucleated red blood cell per centageOrdered By: Safia Ruelas on 09-17-2024 Nucleated RBC/100 WBC (Bld) [Ratio] 0 % 0-5 [facility] Platelet countOrdered By: Balbir Ruelas on 09-17-2024 Platelets (Bld) [#/Vol] 311 10*3/uL 150-450 [facility] Potassium measurement (mass/ volume)Ordered By: Safia Ruelas on 09-17-2024 Potassium (Unsp spec) [Mass/Vol] 4.1 mmol/L 3.3-5.1 [facility] RBC Auto (Bld) [#/Vol]Ordere d By: Safia Ruelas on 09-17-2024 RBC (Bld) [#/Vol] 4.23 10*6/uL 4.2-5.4 [facility] Screening total cholesterol/ high density lipoprotein (HDL) cholesterol ratioOrdered By: Safia Ruelas on 09-17-2024 Cholesterol.total/Alta sterol in HDL [Mass ratio] 5.38 {ratio} [facility] Serum creatinine measurement (mass/volume)Ordered By: Safia Ruelas on 09-17-2024 Creatinine [Mass/Vol] 0.86 mg/dL 0.70-1.20 [facility] Serum glucose measurement (m ass/volume)Ordered By: Safia Ruelas on 09-17-2024 Glucose [Mass/Vol] 216 mg/dL High 70-99 [facility] Serum or plasma calcium dayna urement (mass/volume)Ordered By: Safia Ruelas on 09-17-2024 Calcium [Mass/Vol] 9.4 mg/dL 7.6-11.0 [facility] Serum or plasma cholesterol in HDL measurement (mass/volume)Ordered By: Safia Ruelas on 09-17-2024 Cholesterol in HDL [Mass/Vol] 33 mg/dL Low >40 [facility] Comment on above: National Cholesterol Education Program (NCEP) guidelines:<40 mg/dL: Low HDL-cholesterol (major risk factor for CHD)>= 60 mg/dL: High HDL-cholesterol (negative risk factor for CHD)HDL-cholesterol is affected by a number of factors, e.g. smoking, exercise, hormones, sex and age. Serum or plasma cholesterol measurement (mass/volume)Ordered By: Safia Ruelas on 09-17-2024 Cholesterol [Mass/Vol] 175 mg/dL <201 [facility] Comment on above: Cholesterol level, D esirable <200 mg/dLBorderline high cholesterol 200-239 mg/dLHigh cholesterol >=240 mg/dLRecommendations of the NCEP Adult Treatment Panel for the following risk-cutoff thresholds for the [place] population. Serum or plasma urea nitroge n measurement (mass/volume)Ordered By: Safia Ruelas on 09-17-2024 Urea nitrogen [Mass/Vol] 39 mg/dL High 4-19 [facility] Sodium levelOrdered By: Leonides Ruelas on 09-17-2024 Sodium [Moles/Vol] 134 mmol/L 133-145 [facility] TSH DL <= 0.005 mIU/L QnOrde red By: Safia Ruelas on 09-17-2024 TSH Qn 3.500 uIU/mL 0.300-4.200 [facility] Triglycerides measurementOrd ered By: Safia Ruelas on 09-17-2024 Triglyceride [Mass/Vol] 111 mg/dL <[address] [facility] Comment on above: The drugs N-Acetylcy steine and Metamizole may falsely depress this assay. Normal range: <150 mg/dLBorderline High: 150-199 mg/dLHigh: 200-499 mg/dLVery High: >500 mg/dL White blood cell (WBC) count Ordered By: Safia Ruelas on 09-17-2024 WBC (Bld) [#/Vol] 9.6 10*3/uL 4.4-11.0 [facility] Absolute lymphocyte countOrd ered By: Safia Ruelas on 09-10-2024 Lymphocytes Auto (Unsp spec) [#/Vol] 2.11 10*3/uL 0.83-4.51 [facility] Absolute neutrophil countOrd ered By: Safia Ruelas on 09-10-2024 Neutrophils (Bld) [#/Vol] 8.1 10*3/uL High 2.0-7.7 [facility] Anion gap in Serum or Plasma Ordered By: Safia Ruelas on 09-10-2024 Anion gap [Moles/Vol] 13 mmol/L 5-15 [facility] Automated lymphocyte count a s percentage of total leukocytesOrdered By: Safia Ruelas on 09-10-2024 Lymphocytes/100 WBC Auto (Unsp spec) 17.9 % Low 19-41 [facility] BUN/creatinine ratioOrdered By: Safia Ruelas on 09-10-2024 Urea nitrogen/Creatinine [Mass ratio] 29.1 mg/mg High 10-20 [facility] Basophil percentageOrdered B y: Safia Ruelas on 09-10-2024 Basophils/100 WBC (Bld) 0.3 % 0-[address] [facility] Bilirubin, totalOrdered By: Safia Ruelas on 09-10-2024 Bilirubin [Mass/Vol] 0.55 mg/dL 0.00-1.30 [facility] Carbon dioxide, total [Moles /volume] in Central venous bloodOrdered By: Safia Ruelas on 09-10-2024 CO2 [Moles/Vol] 23.6 mmol/L 21.0-32.0 [facility] Chloride assayOrdered By: Balbir Ruelas on 09-10-2024 Chloride [Moles/Vol] 97 mmol/L Low 98-108 [facility] Eosinophil percentageOrdered By: Safia Ruelas on 09-10-2024 Eosinophils/100 WBC (Bld) 0.5 % 0-5 [facility] Erythrocyte distribution wid th ratioOrdered By: Safia Ruelas on 09-10-2024 Erythrocyte distribution width (RBC) [Ratio] 13.4 % 11.6-14.6 [facility] Erythrocyte distribution wid th standard deviationOrdered By: Safia Ruelas on 09-10-2024 Erythrocyte distribution width (RBC) [Ratio] 45.2 fl High 35.1-43.9 [facility] Glomerular filtration rate ( GFR) estimation/1.73 sq m using serum, plasma, or whole bOrdered By: Safia Ruelas on 09-10-2024 GFR/1.73 sq M.predicted among non-blacks MDRD (S/P/Bld) [Vol rate/Area] 59 mL/min/{1.73_m2} Low >60 [facility] Comment on above: mL/min/1.73m2 CKD-EP I Creatinine Equation (2020) Hematocrit Auto (Bld) [Volum e fraction]Ordered By: [facility]irjen[facility] medical centerskye Ruelas on 09-10-2024 Hematocrit (Bld) [Volume fraction] 41.8 % 37-47 [facility] Hemoglobin measurementOrdere d By: Safia Ruelas 09-10-2024 Hemoglobin (Bld) [Mass/Vol] 13.4 g/dL 12.0-15.0 [facility] Immature granulocytes/100 WB C Auto (Bld)Ordered By: Safia Ruelas 09-10-2024 Immature granulocytes/100 WBC (Bld) 0.800 % 0.0-0.9 [facility] Comment on above: IG% - Immature Granu locytes (promyelocytes, myelocytes and metamyelocytes) > 1% indicates that a LEFT SHIFT is Present. Laboratory - Chemistry and C hemistry - challengeOrdered By: Safia Ruelas on 09-10-2024 AST [Catalytic activity/Vol] 21 U/L <32 [facility] MCV (mean corpuscular volume ) determinationOrdered By: Safia Ruelas 09-10-2024 MCV (RBC) [Entitic vol] 92.5 fL 81-[address] [facility] Mean corpuscular hemoglobin (MCH) determinationOrdered By: Safia Ruelas on 09-10-2024 MCH (RBC) [Entitic mass] 29.6 pg 27.0-32.0 [facility] Mean corpuscular hemoglobin concentration (MCHC) determinationOrdered By: Safia Ruelas on 09-10-2024 MCHC (RBC) [Mass/Vol] 32.1 g/dL 32-36 [facility] Mean platelet volume determi nationOrdered By: Safia Ruelas on 09-10-2024 Platelet mean volume (Bld) [Entitic vol] 12.6 fL High 6.2-12.0 [facility] Monocyte percentageOrdered B y: Safia Ruelas on 09-10-2024 Monocytes/100 WBC (Bld) 12.3 % High 0-[address] [facility] Neutrophil percentageOrdered By: Safia Ruelas on 09-10-2024 Neutrophils/100 WBC (Bld) 68.2 % 47-70 [facility] Nucleated red blood cell per centageOrdered By: Safia Ruelas on 09-10-2024 Nucleated RBC/100 WBC (Bld) [Ratio] 0 % 0-5 [facility] Platelet countOrdered By: Balbir Ruelas on 09-10-2024 Platelets (Bld) [#/Vol] 190 10*3/uL 150-450 [facility] Potassium measurement (mass/ volume)Ordered By: Safia Ruelas on 09-10-2024 Potassium (Unsp spec) [Mass/Vol] 4.3 mmol/L 3.3-5.1 [facility] RBC Auto (Bld) [#/Vol]Ordere d By: Safia Ruelas on 09-10-2024 RBC (Bld) [#/Vol] 4.52 10*6/uL 4.2-5.4 [facility] Serum creatinine measurement (mass/volume)Ordered By: Safia Ruelas on 09-10-2024 Creatinine [Mass/Vol] 0.98 mg/dL 0.70-1.20 [facility] Serum globulin measurementOr dered By: Safia Ruelas on 09-10-2024 Globulin (S) [Mass/Vol] 3.3 g/dL 2.2-4.2 [facility] Serum glucose measurement (m ass/volume)Ordered By: Safia Ruelas on 09-10-2024 Glucose [Mass/Vol] 181 mg/dL High 70-99 [facility] Serum or plasma alanine raymundo otransferase (ALT) measurementOrdered By: Safia Ruelas on 09-10-2024 ALT [Catalytic activity/Vol] 26 U/L <35 [facility] Serum or plasma albumin dayna urement (mass/volume)Ordered By: Safia Ruelas on 09-10-2024 Albumin [Mass/Vol] 3.4 g/dL 3.4-4.8 [facility] Serum or plasma albumin/glob ulin mass ratioOrdered By: Safia Ruelas on 09-10-2024 Albumin/Globulin [Mass ratio] 1.0 {ratio} 0.9-2.4 [facility] Serum or plasma alkaline hannah sphatase measurementOrdered By: Safia Ruelas on 09-10-2024 ALP [Catalytic activity/Vol] 114 U/L High 35-104 [facility] Serum or plasma calcium dayna urement (mass/volume)Ordered By: Safia Ruelas on 09-10-2024 Calcium [Mass/Vol] 9.3 mg/dL 7.6-11.0 [facility] Serum or plasma urea nitroge n measurement (mass/volume)Ordered By: Safia Ruelsa on 09-10-2024 Urea nitrogen [Mass/Vol] 29 mg/dL High 4-19 [facility] Sodium levelOrdered By: Leonides Ruelas on 09-10-2024 Sodium [Moles/Vol] 133 mmol/L 133-145 [facility] Total proteinOrdered By: Augusto Ruelas on 09-10-2024 Protein [Mass/Vol] 6.7 g/dL 5.9-8.4 [facility] White blood cell (WBC) count Ordered By: Safia Ruelas on 09-10-2024 WBC (Bld) [#/Vol] 11.8 10*3/uL High 4.4-11.0 [facility] LABORATORYOrdered By: Abigail Smith on 09-09-2024 Glucose [Mass/Vol] 212 mg/dL High 82 - 115 mg/dL [employer] Work Phone: Glucose [Mass/Vol] 226 mg/dL High 82 - 115 mg/dL [employer] Work Phone: LABORATORYOrdered By: Zoila Zarco on 09-08-2024 Glucose [Mass/Vol] 149 mg/dL High 82 - 115 mg/dL [employer] Work Phone: LABORATORYOrdered By: Rob Palmer on 09-08-2024 Blood Glucose Testing Reason Routine (09/08/24 6:16 PM) DTT Work Phone: Blood Glucose Testing Reason Routine (09/08/24 11:58 AM) DTT Work Phone: LABORATORYOrdered By: Rob Palmer on 09-07-2024 Blood Glucose Testing Reason Routine (09/07/24 4:46 PM) DTT Work Phone: .Auto Diffon 09-03-2024 Basophil, Absolute 0.1 10 3/mcL Normal 0.0-0.3 [facility] MAIN Comment on above: Performed By: #### A DIFF, CBC, ANEU, GFR, BMP #### [address] [address] Basophils/100 WBC (Bld) 1.0 % Normal 0.0-2.[address] [facility] MAIN Comment on above: Performed By: #### A DIFF, CBC, ANEU, GFR, BMP #### [address] [address] Eosinophil, Absolute 0.2 10 3/mcL Normal 0.0-0.7 [facility] MAIN Comment on above: Performed By: #### A DIFF, CBC, ANEU, GFR, BMP #### [address] [address] Eosinophils/100 WBC (Bld) 3.2 % Normal 0.0-6.0 [facility]IN Comment on above: Performed By: #### A DIFF, CBC, ANEU, GFR, BMP #### [address] [address] Lymphocyte, Absolute 2.0 10 3/mcL Normal 0.9-4.3 [facility] MAIN Comment on above: Performed By: #### A DIFF, CBC, ANEU, GFR, BMP #### [address] [address] Lymphocytes/100 WBC (Bld) 26.6 % Normal 20.0-40.0 [facility]IN Comment on above: Performed By: #### A DIFF, CBC, ANEU, GFR, BMP #### [address] [address] Monocyte, Absolute 0.7 10 3/mcL Normal 0.1-1.4 [facility] MAIN Comment on above: Performed By: #### A DIFF, CBC, ANEU, GFR, BMP #### [address] [address] Monocytes/100 WBC (Bld) 9.7 % Normal 2.0-13.[address] [facility] MAIN Comment on above: Performed By: #### A DIFF, CBC, ANEU, GFR, BMP #### [address] [address] Neutrophils/100 WBC (Bld) 59.5 % Normal 50.0-75.0 [facility] Comment on above: Performed By: #### A DIFF, CBC, ANEU, GFR, BMP #### [address] [address] .GFRon 09-03-2024 Estimated Glomerular Filtration Rate 57 ml/min/1.73sqm Normal [facility] MAIN Comment on above: Result Comment: [...] A DIFF, CBC, ANEU, GFR, BMP #### [place] [address] .NEUABSon 09-03-2024 Neutrophil, Absolute 4.5 10 3/mcL Normal 2.3-8.1 [facility] MAIN Comment on above: Performed By: #### A DIFF, CBC, ANEU, GFR, BMP #### [place] [address] B12on 09-03-2024 Cobalamin (Vitamin B12) [Mass/Vol] 834 pg/mL Normal 211-911 [facility] MAIN Comment on above: Performed By: #### A DIFF, CBC, ANEU, GFR, BMP #### [place] [address] CBCon 09-03-2024 Erythrocyte distribution width (RBC) [Ratio] 14.7 % Normal 11.5-15.5 [facility] MAIN Comment on above: Performed By: #### A DIFF, CBC, ANEU, GFR, BMP #### [place] [address] Hematocrit (Bld) [Volume fraction] 39.7 % Normal 34.0-46.0 [facility] MA[facility] Comment on above: Performed By: #### A DIFF, CBC, ANEU, GFR, BMP #### [place] [address] Hgb 13.2 G/dL Normal 12.0-16.0 [facility] MA[facility] Comment on above: Performed By: #### A DIFF, CBC, ANEU, GFR, BMP #### [place] [address] MCH (RBC) [Entitic mass] 30.6 pg Normal 27.0-33.0 [facility] MAIN Comment on above: Performed By: #### A DIFF, CBC, ANEU, GFR, BMP #### [address] [address] MCHC 33.3 G/dL Normal 32.0-36.0 [facility] Comment on above: Performed By: #### A DIFF, CBC, ANEU, GFR, BMP #### [address] [address] MCV (RBC) [Entitic vol] 91.9 fL Normal 80.0-99.[address] [facility] MAIN Comment on above: Performed By: #### A DIFF, CBC, ANEU, GFR, BMP #### [address] [address] Platelet 228 10 3/mcL Normal 150-450 [facility] MA[facility] Comment on above: Performed By: #### A DIFF, CBC, ANEU, GFR, BMP #### [address] [address] Platelet mean volume (Bld) [Entitic vol] 10.1 fL Normal 6.6-10.5 [facility] Comment on above: Performed By: #### A DIFF, CBC, ANEU, GFR, BMP #### [address] [address] RBC 4.32 10 6/mcL Normal 4.10-5.30 [facility] Comment on above: Performed By: #### A DIFF, CBC, ANEU, GFR, BMP #### [address] [address] WBC 7.6 10 3/mcL Normal 4.5-10.8 [facility] Comment on above: Performed By: #### A DIFF, CBC, ANEU, GFR, BMP #### [address] [address] CMPon 09-03-2024 Albumin Level 3.0 G/dL Low 3.2-4.8 [facility] MA[facility] Comment on above: Performed By: #### A DIFF, CBC, ANEU, GFR, BMP #### [address] [address] Albumin/Globulin [Mass ratio] 0.9 {ratio} Normal 0.9-1.6 [facility] Comment on above: Performed By: #### A DIFF, CBC, ANEU, GFR, BMP #### [address] [address] ALP [Catalytic activity/Vol] 115 U/L Normal 38-126 [facility] MA[facility] Comment on above: Performed By: #### A DIFF, CBC, ANEU, GFR, BMP #### [address] [address] ALT [Catalytic activity/Vol] 37 U/L Normal 10-49 [facility] MA[facility] Comment on above: Performed By: #### A DIFF, CBC, ANEU, GFR, BMP #### [address] [address] AST [Catalytic activity/Vol] 31 U/L Normal 8-34 [facility] MA[facility] Comment on above: Performed By: #### A DIFF, CBC, ANEU, GFR, BMP #### [place] [id number] Bili Total 0.50 mg/dL Normal 0.20-1.20 [facility] MAIN Comment on above: Result Comment: Use of this assay is not recommended for patients undergoing treatment with eltrombopag due to the potential for falsely elevated results. Performed By: #### A DIFF, CBC, ANEU, GFR, BMP #### [place] [id number] BUN/Creatinine Ratio 29.7 ratio High 10.0-22.0 [facility] MAIN Comment on above: Performed By: #### A DIFF, CBC, ANEU, GFR, BMP #### [address] [address] Calcium [Mass/Vol] 9.6 mg/dL Normal 8.7-10.4 [facility] MAIN Comment on above: Performed By: #### A DIFF, CBC, ANEU, GFR, BMP #### [place] [id number] Chloride [Moles/Vol] 101 mmol/L Normal 98-110 [facility] MAIN Comment on above: Performed By: #### A DIFF, CBC, ANEU, GFR, BMP #### [address] [address] CO2 [Moles/Vol] 27 mmol/L Normal 22-32 [facility] MAIN Comment on above: Performed By: #### A DIFF, CBC, ANEU, GFR, BMP #### [address] [address] Creatinine [Mass/Vol] 1.01 mg/dL Normal 0.50-1.20 [facility] MAIN Comment on above: Result Comment: Test ing performed on [employer] analyzer using enzymatic creatinine methodology. Performed By: #### A DIFF, CBC, ANEU, GFR, BMP #### [address] [address] Electrolyte Balance 10.0 mEq/L Normal 4.0-15.0 [facility] MAIN Comment on above: Performed By: #### A DIFF, CBC, ANEU, GFR, BMP #### [address] [address] Globulin 3.4 G/dL Normal 1.5-3.8 [facility] MAIN Comment on above: Performed By: #### A DIFF, CBC, ANEU, GFR, BMP #### [address] [address] Glucose [Mass/Vol] 187 mg/dL High 82-115 [facility] MAIN Comment on above: Performed By: #### A DIFF, CBC, ANEU, GFR, BMP #### [address] [address] Potassium [Moles/Vol] 4.6 mmol/L Normal 3.5-5.0 [facility] MAIN Comment on above: Performed By: #### A DIFF, CBC, ANEU, GFR, BMP #### [address] [address] Sodium [Moles/Vol] 138 mmol/L Normal 136-145 [facility] MAIN Comment on above: Performed By: #### A DIFF, CBC, ANEU, GFR, BMP #### [address] [address] Total Protein 6.4 G/dL Normal 5.7-8.2 [facility] MAIN Comment on above: Performed By: #### A DIFF, CBC, ANEU, GFR, BMP #### [address] [place], [place] [address] Urea nitrogen [Mass/Vol] 30.0 mg/dL High 8.0-22.0 [facility] MA[facility] Comment on above: Performed By: #### A DIFF, CBC, ANEU, GFR, BMP #### [facility] [address] [place] [address] LABORATORYOrdered By: Ann Carrillo on 09-03-2024 Glucose [Mass/Vol] 270 mg/dL [facility] elfego [place] Work Phone: LABORATORYOrdered By: SYSTEM SYSTEM on [...] above: Interpretive Data: T esting performed on [employer] CH analyzer using enzymatic creatinine methodology. Electrolyte [...] 10.1 fL Normal 6.6 - 10.5 fL Workflow SS Platelets (Bld) [#/Vol] 228 103/mcL Normal 150 - 450 10^3/mcL AH Workflow SS Potassium [Moles/Vol] 4.6 mmol/L Normal 3.5 - 5.0 mEq/L ADM SS Protein [Mass/Vol] 6.4 G/dL Normal 5.7 - 8.2 G/dL ADM SS RBC (Bld) [#/Vol] 4.32 106/mcL [...] TSHon 09-03-2024 TSH 3.920 mIU/mL Normal 0.550-4.780 [facility] MAIN Comment on above: Performed By: #### A DIFF, CBC, ANEU, GFR, BMP #### [place] [address] CT HEAD OR BRAIN W/O CONTRAS Ton [...] 09/02/2024 3:10:44 PM Ordering Provider: [facility] 08-30-2024 [facility] Telephone (FAMPWS) LINDSAY ACUNA ([id number]) 1945 F Date Time Provider Department 08/30[facility] visit today, we recorded the following information about you: Jaiden Paulino, ZOE 08/30/2024 9:11 AM [facility] with dx: [facility], and [facility] to home with [facility] SN PT OT [facility]. Asking if pcp agreeable to follow for [facility]. Please phone Marya with verbal: [phone] Mj Glover APRN.GARRETT 08/30/2024 9:19 AM Signed Please let know that Dr. Caruso's team will follow orders. Okay to proceed. Mj Glover APRN.Fouzia Reynoso LPN 08/30/2024 10:09 AM Signed Marya with [facility] notified. Allergies As of Date: 08/30/2024 Noted Allergy Reaction BENZOCAINE 07/08/2005 2 - Rash COCAINE 05/28/2008 Comments: Inverted T PERFUMES 07/08/2005 12 - Shortness of Breath Comments: coughes and chokes SULFA (SULFONAMIDE ANTIBIOTICS) 07/08/2005 5 - Intolerance Date Reviewed: 06/26/2024 Reviewed by: Bret Arambula LPN - Fully Assessed Reason for Visit: [facility] requesting verbal agree to follow [Other] [...] FOUZIA MILLER on 08/30/24 Normal [facility] .Auto Diffon 08-26-2024 Basophil, Absolute 0.1 10 3/mcL Normal 0.0-0.3 [facility] MAIN Comment on above: Performed By: #### A DIFF, CBC, ANEU, GFR, BMP #### [address] [address] Basophils/100 WBC (Bld) 1.0 % Normal 0.0-2.[address] [facility] MAIN Comment on above: Performed By: #### A DIFF, CBC, ANEU, GFR, BMP #### [address] [address] Eosinophil, Absolute 0.3 10 3/mcL Normal 0.0-0.7 [facility] MAIN Comment on above: Performed By: #### A DIFF, CBC, ANEU, GFR, BMP #### [address] [address] Eosinophils/100 WBC (Bld) 4.2 % Normal 0.0-6.0 [facility] MA[facility] Comment on above: Performed By: #### A DIFF, CBC, ANEU, GFR, BMP #### [address] [address] Lymphocyte, Absolute 2.2 10 3/mcL Normal 0.9-4.3 [facility] MAIN Comment on above: Performed By: #### A DIFF, CBC, ANEU, GFR, BMP #### [address] [address] Lymphocytes/100 WBC (Bld) 26.3 % Normal 20.0-40.0 [facility] MAIN Comment on above: Performed By: #### A DIFF, CBC, ANEU, GFR, BMP #### [address] [address] Monocyte, Absolute 0.9 10 3/mcL Normal 0.1-1.4 [facility] MAIN Comment on above: Performed By: #### A DIFF, CBC, ANEU, GFR, BMP #### [address] [address] Monocytes/100 WBC (Bld) 11.4 % Normal 2.0-13.[address] [facility] MAIN Comment on above: Performed By: #### A DIFF, CBC, ANEU, GFR, BMP #### [address] [address] Neutrophils/100 WBC (Bld) 57.1 % Normal 50.0-75.0 [facility] MA[facility] Comment on above: Performed By: #### A DIFF, CBC, ANEU, GFR, BMP #### [address] [address] .GFRon 08-26-2024 Estimated Glomerular Filtration Rate 59 ml/min/1.73sqm Normal [facility] MAIN Comment on above: Result Comment: [...] A DIFF, CBC, ANEU, GFR, BMP #### [address] [address] .NEUABSon 08-26-2024 Neutrophil, Absolute 4.7 10 3/mcL Normal 2.3-8.1 [facility] MAIN Comment on above: Performed By: #### A DIFF, CBC, ANEU, GFR, BMP #### [place] [id number] [facility] BUN/Creatinine Ratio 35.1 ratio High 10.0-22.0 [facility] MAIN Comment on above: Performed By: #### A DIFF, CBC, ANEU, GFR, BMP #### [place] [id number] Calcium [Mass/Vol] 9.8 mg/dL Normal 8.7-10.4 [facility] MA[facility] Comment on above: Performed By: #### A DIFF, CBC, ANEU, GFR, BMP #### [place] [address] Chloride [Moles/Vol] 98 mmol/L Normal 98-110 [facility] MAIN Comment on above: Performed By: #### A DIFF, CBC, ANEU, GFR, BMP #### [place] [id number] CO2 [Moles/Vol] 25 mmol/L Normal 22-32 [facility] MAIN Comment on above: Performed By: #### A DIFF, CBC, ANEU, GFR, BMP #### [place] [id number] Creatinine [Mass/Vol] 0.97 mg/dL Normal 0.50-1.20 [facility] MAIN Comment on above: Result Comment: Test ing performed on [employer] analyzer using enzymatic creatinine methodology. Performed By: #### A DIFF, CBC, ANEU, GFR, BMP #### [address] [address] Electrolyte Balance 12.0 mEq/L Normal 4.0-15.0 [facility] MAIN Comment on above: Performed By: #### A DIFF, CBC, ANEU, GFR, BMP #### [place] [id number] Glucose [Mass/Vol] 160 mg/dL High 82-115 [facility] MAIN Comment on above: Performed By: #### A DIFF, CBC, ANEU, GFR, BMP #### [place] [address] Potassium [Moles/Vol] 4.7 mmol/L Normal 3.5-5.0 [facility] MAIN Comment on above: Result Comment: Spec imen slightly hemolyzed. Performed By: #### A DIFF, CBC, ANEU, GFR, BMP #### [place] [address] Sodium [Moles/Vol] 135 mmol/L Low 136-145 [facility] MA[facility] Comment on above: Performed By: #### A DIFF, CBC, ANEU, GFR, BMP #### [place] [address] Urea nitrogen [Mass/Vol] 34.0 mg/dL High 8.0-22.0 [facility] MAIN Comment on above: Performed By: #### A DIFF, CBC, ANEU, GFR, BMP #### [place] [id number] CBCon 08-26-2024 Erythrocyte distribution width (RBC) [Ratio] 14.0 % Normal 11.5-15.5 [facility] MAIN Comment on above: Performed By: #### A DIFF, CBC, ANEU, GFR, BMP #### [place] [id number] Hematocrit (Bld) [Volume fraction] 41.0 % Normal 34.0-46.0 [facility] MAIN Comment on above: Performed By: #### A DIFF, CBC, ANEU, GFR, BMP #### [place] [id number] Hgb 13.4 G/dL Normal 12.0-16.0 [facility] MA[facility] Comment on above: Performed By: #### A DIFF, CBC, ANEU, GFR, BMP #### [address] [address] MCH (RBC) [Entitic mass] 30.0 pg Normal 27.0-33.0 [facility] MAIN Comment on above: Performed By: #### A DIFF, CBC, ANEU, GFR, BMP #### [address] [address] MCHC 32.7 G/dL Normal 32.0-36.0 [facility] MAIN Comment on above: Performed By: #### A DIFF, CBC, ANEU, GFR, BMP #### [address] [address] MCV (RBC) [Entitic vol] 91.9 fL Normal 80.0-99.[address] [facility] MAIN Comment on above: Performed By: #### A DIFF, CBC, ANEU, GFR, BMP #### [place] [id number] Platelet 297 10 3/mcL Normal 150-450 [facility] MAIN Comment on above: Performed By: #### A DIFF, CBC, ANEU, GFR, BMP #### [place] [address] Platelet mean volume (Bld) [Entitic vol] 11.0 fL High 6.6-10.5 [facility] MAIN Comment on above: Performed By: #### A DIFF, CBC, ANEU, GFR, BMP #### [place] [id number] RBC 4.46 10 6/mcL Normal 4.10-5.30 [facility] MAIN Comment on above: Performed By: #### A DIFF, CBC, ANEU, GFR, BMP #### [place] [id number] WBC 8.3 10 3/mcL Normal 4.5-10.8 [facility] MAIN Comment on above: Performed By: #### A DIFF, CBC, ANEU, GFR, BMP #### [place] [address] LABORATORYOrdered By: SYSTEM SYSTEM on 08-26-2024 Basophils [...] above: Interpretive Data: T esting performed on [employer] analyzer using enzymatic creatinine methodology. Electrolyte Balance [...] Sign Date: 08/25/2024 2:27:26 PM Ordering Provider: [facility] MAIN XR HUMERUS MINIMUM 2 VIEWS L [facility] 08-25-2024 XR HUMERUS MINIMUM 2 VIEWS LEFT [...] Sign Date: 08/25/2024 2:26:11 PM Ordering Provider: [facility] MAIN XR SHOULDER MINIMUM 2 VIEWS [...] 08/25/2024 2:26:45 PM Ordering Provider: JACKLYN LINDSEY [facility] MAIN LABORATORYOrdered By: Kala lux on 08-23-2024 Glucose [Mass/Vol] 278 mg/dL [facility] Work Phone: LABORATORYOrdered By: Kala lux on 08-22-2024 Glucose [Mass/Vol] 320 mg/dL [facility] Work Phone: A1Con 08-21-2024 Glucose [Mass/Vol] 194 mg/dL [facility] MAIN Comment on above: Result Comment: Nancy mated Average Glucose calculated by equation ((28.7xA1C)-46.7) Estimated average glucose (eAG) is a calculated value from Hemoglobin A1C and is practice representative of the average blood glucose level in the last 2-3 month period. Normal range: less than 114 mg/dL Performed By: #### A 1C #### [address] [address] HbA1c (Bld) [Mass fraction] 8.4 % High 4.0-6.0 [facility] MAIN Comment on above: Performed By: #### A 1C #### [address] [address] LABORATORYOrdered By: SYSTEM SYSTEM on 08-21-2024 Glucose [Mass/Vol] 194 mg/dL Invalid Interpretation Code Auto Chem SS Comment on above: Interpretive Data: E stimated average glucose (eAG) is a calculated value from Hemoglobin A1C and is practice representative of the average blood glucose level in the last 2-3 month period. Normal range: less than 114 mg/dL HbA1c (Bld) [Mass fraction] 8.4 % High 4.0 - 6.0 % Auto Chem SS .Auto Diffon 08-20-2024 Basophil, Absolute 0.1 10 3/mcL Normal 0.0-0.3 [facility] MAIN Comment on above: Performed By: #### B MP, ADIFF, CBC, GFR, ANEU #### [address] [address] Basophils/100 WBC (Bld) 1.1 % Normal 0.0-2.[address] [facility] MAIN Comment on above: Performed By: #### B MP, ADIFF, CBC, GFR, ANEU #### [address] [address] Eosinophil, Absolute 0.3 10 3/mcL Normal 0.0-0.7 [facility] MAIN Comment on above: Performed By: #### B MP, ADIFF, CBC, GFR, ANEU #### [address] [address] Eosinophils/100 WBC (Bld) 3.6 % Normal 0.0-6.0 [facility] MAIN Comment on above: Performed By: #### B MP, ADIFF, CBC, GFR, ANEU #### [address] [address] Lymphocyte, Absolute 1.7 10 3/mcL Normal 0.9-4.3 [facility] MAIN Comment on above: Performed By: #### B MP, ADIFF, CBC, GFR, ANEU #### [address] [address] Lymphocytes/100 WBC (Bld) 20.8 % Normal 20.0-40.0 [facility] MAIN Comment on above: Performed By: #### B MP, ADIFF, CBC, GFR, ANEU #### [address] [address] Monocyte, Absolute 0.9 10 3/mcL Normal 0.1-1.4 [facility] MAIN Comment on above: Performed By: #### B MP, ADIFF, CBC, GFR, ANEU #### [address] [address] Monocytes/100 WBC (Bld) 11.4 % Normal 2.0-13.[address] [facility] MAIN Comment on above: Performed By: #### B MP, ADIFF, CBC, GFR, ANEU #### [address] [address] Neutrophils/100 WBC (Bld) 63.1 % Normal 50.0-75.0 [facility] MAIN Comment on above: Performed By: #### B MP, ADIFF, CBC, GFR, ANEU #### [address] [address] .GFRon 08-20-2024 Estimated Glomerular Filtration Rate 55 ml/min/1.73sqm Normal [facility] MAIN Comment on above: Result Comment: [...] A DIFF, CBC, ANEU, GFR, BMP #### [address] [address] .NEUABSon 08-20-2024 Neutrophil, Absolute 5.1 10 3/mcL Normal 2.3-8.1 [facility] MAIN Comment on above: Performed By: #### B MP, ADIFF, CBC, GFR, ANEU #### [address] [address] BMPon 08-20-2024 BUN/Creatinine Ratio 29.8 ratio High 10.0-22.0 [facility] MAIN Comment on above: Performed By: #### B MP, ADIFF, CBC, GFR, ANEU #### [address] [address] Calcium [Mass/Vol] 9.8 mg/dL Normal 8.7-10.4 [facility] MAIN Comment on above: Performed By: #### B MP, ADIFF, CBC, GFR, ANEU #### [address] [address] Chloride [Moles/Vol] 95 mmol/L Low 98-110 [facility] MAIN Comment on above: Performed By: #### B MP, ADIFF, CBC, GFR, ANEU #### [address] [address] CO2 [Moles/Vol] 34 mmol/L High 22-32 [facility] MAIN Comment on above: Performed By: #### B MP, ADIFF, CBC, GFR, ANEU #### [address] [address] Creatinine [Mass/Vol] 1.04 mg/dL Normal 0.50-1.20 [facility] MAIN Comment on above: Result Comment: Test ing performed on [employer] analyzer using enzymatic creatinine methodology. Performed By: #### B MP, ADIFF, CBC, GFR, ANEU #### [address] [address] Electrolyte Balance 5.0 mEq/L Normal 4.0-15.0 [facility] MAIN Comment on above: Performed By: #### B MP, ADIFF, CBC, GFR, ANEU #### [address] [address] Glucose [Mass/Vol] 244 mg/dL High 82-115 [facility] MAIN Comment on above: Performed By: #### B MP, ADIFF, CBC, GFR, ANEU #### [address] [address] Potassium [Moles/Vol] 4.8 mmol/L Normal 3.5-5.0 [facility] MAIN Comment on above: Result Comment: Spec imen slightly hemolyzed. Performed By: #### B MP, ADIFF, CBC, GFR, ANEU #### [address] [address] Sodium [Moles/Vol] 134 mmol/L Low 136-145 [facility] MAIN Comment on above: Performed By: #### B MP, ADIFF, CBC, GFR, ANEU #### [place] [address] Urea nitrogen [Mass/Vol] 31.0 mg/dL High 8.0-22.0 [facility] MAIN Comment on above: Performed By: #### B MP, ADIFF, CBC, GFR, ANEU #### [place] [address] CBCon 08-20-2024 Erythrocyte distribution width (RBC) [Ratio] 14.0 % Normal 11.5-15.5 [facility] MAIN Comment on above: Performed By: #### B MP, ADIFF, CBC, GFR, ANEU #### [place] [address] Hematocrit (Bld) [Volume fraction] 41.9 % Normal 34.0-46.0 [facility] MAIN Comment on above: Performed By: #### B MP, ADIFF, CBC, GFR, ANEU #### [place] [address] Hgb 13.6 G/dL Normal 12.0-16.0 [facility] MAIN Comment on above: Performed By: #### B MP, ADIFF, CBC, GFR, ANEU #### [place] [address] MCH (RBC) [Entitic mass] 29.7 pg Normal 27.0-33.0 [facility] MAIN Comment on above: Performed By: #### B MP, ADIFF, CBC, GFR, ANEU #### [place] [address] MCHC 32.4 G/dL Normal 32.0-36.0 [facility] MAIN Comment on above: Performed By: #### B MP, ADIFF, CBC, GFR, ANEU #### [place] [address] MCV (RBC) [Entitic vol] 91.5 fL Normal 80.0-99.[address] [facility] Comment on above: Performed By: #### B MP, ADIFF, CBC, GFR, ANEU #### [address] [address] Platelet 301 10 3/mcL Normal 150-450 [facility] Comment on above: Performed By: #### B MP, ADIFF, CBC, GFR, ANEU #### [address] [address] Platelet mean volume (Bld) [Entitic vol] 11.0 fL High 6.6-10.5 [facility] Comment on above: Performed By: #### B MP, ADIFF, CBC, GFR, ANEU #### [address] [address] RBC 4.58 10 6/mcL Normal 4.10-5.30 [facility] Comment on above: Performed By: #### B MP, ADIFF, CBC, GFR, ANEU #### [address] [address] WBC 8.1 10 3/mcL Normal 4.5-10.8 [facility] Comment on above: Performed By: #### B MP, ADIFF, CBC, GFR, ANEU #### [address] [address] LABORATORYOrdered By: SYSTEM SYSTEM on 08-20-2024 Basophils [...] above: Interpretive Data: T esting performed on [email or web address] analyzer using enzymatic creatinine methodology. Electrolyte Balance [...] 5.1 103/mcL Normal 2.3 - 8.1 10^3/mcL Workflow SS Neutrophils/100 WBC (Bld) 63.1 % [...] 08/18/2024 3:14:15 PM Ordering Provider: NANDO Anderson [facility] .Auto Diffon 08-16-2024 Basophil, Absolute 0.1 10 3/mcL Normal 0.0-0.3 [facility] Comment on above: Performed By: #### A DIFF, CBC, ANEU, GFR, BMP #### [address] [address] Basophils/100 WBC (Bld) 0.7 % Normal 0.0-2.[address] [facility] Comment on above: Performed By: #### A DIFF, CBC, ANEU, GFR, BMP #### [address] [address] Eosinophil, Absolute 0.3 10 3/mcL Normal 0.0-0.7 [facility] Comment on above: Performed By: #### A DIFF, CBC, ANEU, GFR, BMP #### [address] [address] Eosinophils/100 WBC (Bld) 2.1 % Normal 0.0-6.0 [facility] Comment on above: Performed By: #### A DIFF, CBC, ANEU, GFR, BMP #### [address] [address] Lymphocyte, Absolute 1.9 10 3/mcL Normal 0.9-4.3 [facility] Comment on above: Performed By: #### A DIFF, CBC, ANEU, GFR, BMP #### [address] [address] Lymphocytes/100 WBC (Bld) 14.8 % Low 20.0-40.0 [facility] Comment on above: Performed By: #### A DIFF, CBC, ANEU, GFR, BMP #### [address] [address] Monocyte, Absolute 1.2 10 3/mcL Normal 0.1-1.4 [facility] Comment on above: Performed By: #### A DIFF, CBC, ANEU, GFR, BMP #### [address] [address] Monocytes/100 WBC (Bld) 9.8 % Normal 2.0-13.[address] [facility] Comment on above: Performed By: #### A DIFF, CBC, ANEU, GFR, BMP #### [address] [address] Neutrophils/100 WBC (Bld) 72.6 % Normal 50.0-75.0 [facility] Comment on above: Performed By: #### A DIFF, CBC, ANEU, GFR, BMP #### [address] [address] .GFRon 08-16-2024 Estimated Glomerular Filtration Rate 58 ml/min/1.73sqm Normal [facility] Comment on above: Result Comment: [...] A DIFF, CBC, ANEU, GFR, BMP #### [address] [address] .NEUABSon 08-16-2024 Neutrophil, Absolute 9.2 10 3/mcL High 2.3-8.1 [facility] Comment on above: Performed By: #### A DIFF, CBC, ANEU, GFR, BMP #### [address] [address] BMPon 08-16-2024 BUN/Creatinine Ratio 34.3 ratio High 10.0-22.0 [facility] Comment on above: Performed By: #### A DIFF, CBC, ANEU, GFR, BMP #### [address] [address] Calcium [Mass/Vol] 9.0 mg/dL Normal 8.7-10.4 [facility] Comment on above: Performed By: #### A DIFF, CBC, ANEU, GFR, BMP #### [address] [address] Chloride [Moles/Vol] 100 mmol/L Normal 98-110 [facility] Comment on above: Performed By: #### A DIFF, CBC, ANEU, GFR, BMP #### [place] [id number] CO2 [Moles/Vol] 30 mmol/L Normal 22-32 [facility] Comment on above: Performed By: #### A DIFF, CBC, ANEU, GFR, BMP #### [place] [id number] Creatinine [Mass/Vol] 0.99 mg/dL Normal 0.50-1.20 [facility] Comment on above: Result Comment: Test ing performed on [email or web address] analyzer using enzymatic creatinine methodology. Performed By: #### A DIFF, CBC, ANEU, GFR, BMP #### [place] [address] Electrolyte Balance 5.0 mEq/L Normal 4.0-15.0 [facility] Comment on above: Performed By: #### A DIFF, CBC, ANEU, GFR, BMP #### [place] [id number] Glucose [Mass/Vol] 259 mg/dL High 82-115 [facility] Comment on above: Performed By: #### A DIFF, CBC, ANEU, GFR, BMP #### [place] [address] Potassium [Moles/Vol] 5.0 mmol/L Normal 3.5-5.0 [facility] Comment on above: Performed By: #### A DIFF, CBC, ANEU, GFR, BMP #### [place] [id number] Sodium [Moles/Vol] 135 mmol/L Low 136-145 [facility] Comment on above: Performed By: #### A DIFF, CBC, ANEU, GFR, BMP #### [place] [id number] Urea nitrogen [Mass/Vol] 34.0 mg/dL High 8.0-22.0 [facility] Comment on above: Performed By: #### A DIFF, CBC, ANEU, GFR, BMP #### [place] [id number] CBCon 08-16-2024 Erythrocyte distribution width (RBC) [Ratio] 13.7 % Normal 11.5-15.5 [facility] Comment on above: Performed By: #### A DIFF, CBC, ANEU, GFR, BMP #### [address] [address] Hematocrit (Bld) [Volume fraction] 43.3 % Normal 34.0-46.0 [facility] Comment on above: Performed By: #### A DIFF, CBC, ANEU, GFR, BMP #### [address] [address] Hgb 13.9 G/dL Normal 12.0-16.0 [facility] Comment on above: Performed By: #### A DIFF, CBC, ANEU, GFR, BMP #### [address] [address] MCH (RBC) [Entitic mass] 30.0 pg Normal 27.0-33.0 [facility] Comment on above: Performed By: #### A DIFF, CBC, ANEU, GFR, BMP #### [address] [address] MCHC 32.1 G/dL Normal 32.0-36.0 [facility] Comment on above: Performed By: #### A DIFF, CBC, ANEU, GFR, BMP #### [address] [address] MCV (RBC) [Entitic vol] 93.6 fL Normal 80.0-99.[address] [facility] Comment on above: Performed By: #### A DIFF, CBC, ANEU, GFR, BMP #### [address] [address] Platelet 230 10 3/mcL Normal 150-450 [facility] Comment on above: Performed By: #### A DIFF, CBC, ANEU, GFR, BMP #### [address] [address] Platelet mean volume (Bld) [Entitic vol] 10.7 fL High 6.6-10.5 [facility] Comment on above: Performed By: #### A DIFF, CBC, ANEU, GFR, BMP #### [facility] [address] [place] [address] RBC 4.63 10 6/mcL Normal 4.10-5.30 [facility] Comment on above: Performed By: #### A DIFF, CBC, ANEU, GFR, BMP #### [facility] [address] [place] [address] WBC 12.7 10 3/mcL High 4.5-10.8 [facility] Comment on above: Performed By: #### A DIFF, CBC, ANEU, GFR, BMP #### [facility] [address] [place] [address] LABORATORYOrdered By: Marily Panda on 08-16-2024 Blood Glucose Interventions Administered agent to decrease blood sugar (08/16/24 12:23 PM) [employer] Work Phone: Blood Glucose Interventions Retest (08/16/24 10:15 AM) [employer] Work Phone: Bacteria identified Cx Nom ( Bld)on 08-15-2024 Bacteria identified Cx Nom (Unsp spec) NO GROWTH DAY 5 OF 5 [facility] CARDIAC RHYTHMon 08-15-2024 [facility] CBC,PLATELETSon 08-15-2024 Erythrocyte distribution width (RBC) [Ratio] 13.4 % 10.8 - 14.9 % [facility] Hematocrit (Bld) [Volume fraction] 43.8 % 34.9 - 44.3 % [facility] Hemoglobin (Bld) [Mass/Vol] 13.5 g/dL 11.4 - 15.2 g/dL [facility] Interpretation and review of laboratory results Abnormal [facility] MCH (RBC) [Entitic mass] 28.9 pg 25.9 - 33.9 pg [facility] MCHC (RBC) [Mass/Vol] 30.8 g/dL Low 31.4 - 35.9 g/dL [facility] MCV (RBC) [Entitic vol] 93.8 fL 79.6 - 97.7 fL [facility] Platelet mean volume (Bld) [Entitic vol] 12 fL 8.5 - 12.2 fL [facility] Platelets (Bld) [#/Vol] 252 10*3/uL 150 - 393 K/uL [facility] RBC (Bld) [#/Vol] 4.67 10*6/uL [facility] WBC (Bld) [#/Vol] 11.94 10*3/uL High 3.99 - 11.19 K/uL [facility] Hematocrit (Bld) [Volume fraction] 43.8 % Normal 34.9-44.3 [facility] Comment on above: Performed By: #### X M #### [facility] (DEFAULT) [address] [address] Hemoglobin (Bld) [Mass/Vol] 13.5 g/dL Normal 11.4-15.2 [facility] Comment on above: Performed By: #### X M #### [facility] (DEFAULT) [address] [address] MCV (RBC) [Entitic vol] 93.8 fL Normal 79.6-97.7 O [facility] Comment on above: Performed By: #### X M #### [facility] (DEFAULT) [address] [address] Mean Cell Hgb 28.9 pg Normal 25.9-33.9 [facility] Comment on above: Performed By: #### X M #### [facility] (DEFAULT) [address] [address] Mean Cell Hgb Conc 30.8 g/dL Low 31.4-35.9 [facility] Comment on above: Performed By: #### X M #### [facility] (DEFAULT) [address] [address] Platelet mean volume (Bld) [Entitic vol] 12.0 fL Normal 8.5-12.2 [facility] Comment on above: Performed By: #### X M #### [facility] (DEFAULT) [address] [place] [address] Platelets (Bld) [#/Vol] 252 10*3/uL Normal 150-393 [facility] Comment on above: Performed By: #### X M #### [facility] (DEFAULT) [address] [place] [address] RBC (Bld) [#/Vol] 4.67 10*6/uL Normal 3.91-5.04 [facility] Comment on above: Performed By: #### X M #### [facility] (DEFAULT) [address] [place] [address] RBC Distribution 13.4 % Normal 10.8-14.9 [facility] Comment on above: Performed By: #### X M #### [facility] (DEFAULT) [address] [place] [address] WBC (Bld) [#/Vol] 11.94 10*3/uL High 3.99-11.19 [facility] Comment on above: Performed By: #### X M #### [facility] (DEFAULT) [address] [place] [address] CHEM 7 (LYTES,BUN,CREA,GLUC) on 08-15-2024 Anion gap [Moles/Vol] 16 mmol/L 7 - 17 mmol/L [facility] Chloride [Moles/Vol] 99 mmol/L 98 - 10 8 mmol/L [facility] CO2 [Moles/Vol] 25 mmol/L 21 - 31 mmol/L [facility] Creatinine [Mass/Vol] 1.27 mg/dL High 0.50 - 1.20 mg/dL [facility] eGFR, CKD-EPI, Female 43 Low - PINF [facility] Glucose [Mass/Vol] 214 mg/dL High 70 - 179 mg/dL [facility] Interpretation and review of laboratory results Abnormal [facility] Osmolality Calc [Osmolality] 306 High [facility] Potassium [Moles/Vol] 4.8 mmol/L 3.5 - 5.0 mmol/L [facility] Sodium [Moles/Vol] 135 mmol/L 135 - 145 mmol/L [facility] Urea nitrogen [Mass/Vol] 51 mg/dL High 7 - 25 mg/dL [facility] Urea nitrogen/Creatinine [Mass ratio] 40 mg/mg [facility] Anion gap [Moles/Vol] 16 mmol/L Normal 7-17 [facility] Comment on above: Performed By: #### H [facility] #### [facility] (DEFAULT) [address] [place] [address] Chloride [Moles/Vol] 99 mmol/L Normal 98-108 [facility] Comment on above: Performed By: #### H [facility] #### [facility] (DEFAULT) [address] [place] [address] CO2 [Moles/Vol] 25 mmol/L Normal 21-31 [facility] Comment on above: Performed By: #### H [facility] #### [facility] (DEFAULT) [address] [place] [address] Creatinine [Mass/Vol] 1.27 mg/dL High 0.50-1.20 [facility] Comment on above: Performed By: #### H [facility] #### [facility] (DEFAULT) [address] [place] [address] GFR/1.73 sq M.predicted among non-blacks MDRD (S/P/Bld) [Vol rate/Area] 43 mL/min/{1.73_m2} Low >=60 [facility] Comment on above: Result Comment: Repo rted eGFR is based on the CKD-EPI 2020 equation using creatinine, age, and sex. Performed By: #### H EMO #### [facility] (DEFAULT) [address] [place] [address] Glucose [Mass/Vol] 214 mg/dL High Nonfastin -179 mg/dL; Fastin-99 [facility] Comment on above: Performed By: #### H EMOGC #### U [facility] (DEFAULT) [address] [place] [address] Osmolality [Osmolality] 306 mosm/kg High 278-305 [facility] Comment on above: Performed By: #### H EMOGC #### [facility] (DEFAULT) [address] [place] [address] Potassium [Moles/Vol] 4.8 mmol/L Normal 3.5-5.0 [facility] Comment on above: Performed By: #### H EMOGC #### U [facility] (DEFAULT) [address] [place] [address] Sodium [Moles/Vol] 135 mmol/L Normal 135-145 [facility] Comment on above: Performed By: #### H EMOGC #### [facility] (DEFAULT) [address] [place] [address] Urea nitrogen [Mass/Vol] 51 mg/dL High 7-25 [facility] Comment on above: Performed By: #### H EMOGC #### [facility] (DEFAULT) [address] [place] [address] Urea nitrogen/Creatinine [Mass ratio] 40 mg/mg Normal [facility] Comment on above: Performed By: #### H EMOGC #### [facility] (DEFAULT) [address] [place] [address] GLUCOSE POCon 08-15-2024 Glucose [Mass/Vol] 190 mg/dL High 70 - 179 mg/dL [facility] Interpretation and review of laboratory results Abnormal [facility] POC Sample Type CAPBL [facility] Glucose [Mass/Vol] 146 mg/dL 70 - 179 mg/dL [facility] POC Sample Type [facility] Glucose [Mass/Vol] 215 mg/dL High 70 - 179 mg/dL [facility] Interpretation and review of laboratory results Abnormal [facility] POC Sample Type [facility]BL [facility] MAGNESIUMon 08-15-2024 Interpretation and review of laboratory results Normal [facility] Magnesium [Mass/Vol] 1.6 mg/dL 1.6 - 2 .6 mg/dL [facility] Magnesium [Mass/Vol] 1.6 mg/dL Normal 1.6-2.6 [facility] Comment on above: Performed By: #### H [facility] #### [facility] (DEFAULT) [address] [place] [address] No Panel Informationon 08-15 [facility] CBC,PLATELETSon 08-14-2024 Erythrocyte distribution width (RBC) [Ratio] 13.4 % 10.8 - 14.9 % [facility] Hematocrit (Bld) [Volume fraction] 47.9 % High 34.9 - 44.3 % [facility] Hemoglobin (Bld) [Mass/Vol] 14.3 g/dL 11.4 - 15.2 g/dL [facility] Interpretation and review of laboratory results Abnormal [facility] MCH (RBC) [Entitic mass] 29.3 pg 25.9 - 33.9 pg [facility] MCHC (RBC) [Mass/Vol] 29.9 g/dL Low 31.4 - 35.9 g/dL [facility] MCV (RBC) [Entitic vol] 98.2 fL High 79.6 - 97.7 fL [facility] Platelet mean volume (Bld) [Entitic vol] 11.3 fL 8.5 - 12.2 fL [facility] Platelets (Bld) [#/Vol] 229 10*3/uL 150 - 393 K/uL [facility] RBC (Bld) [#/Vol] 4.88 10*6/uL [facility] WBC (Bld) [#/Vol] 12.14 10*3/uL High 3.99 - 11.19 K/uL [facility] Hematocrit (Bld) [Volume fraction] 47.9 % High 34.9-44.3 [facility] Comment on above: Performed By: #### X M #### [facility] (DEFAULT) [address] [place] [address] Hemoglobin (Bld) [Mass/Vol] 14.3 g/dL Normal 11.4-15.2 [facility] Comment on above: Performed By: #### X M #### [facility] (DEFAULT) [address] [place] [address] MCV (RBC) [Entitic vol] 98.2 fL High 79.6-97.7 O [facility] Comment on above: Performed By: #### X M #### [facility] (DEFAULT) [address] [place] [address] Mean Cell Hgb 29.3 pg Normal 25.9-33.9 [facility] Comment on above: Performed By: #### X M #### [facility] (DEFAULT) [address] [place] [address] Mean Cell Hgb Conc 29.9 g/dL Low 31.4-35.9 [facility] Comment on above: Performed By: #### X M #### [facility] (DEFAULT) [address] [place] [address] Platelet mean volume (Bld) [Entitic vol] 11.3 fL Normal 8.5-12.2 [facility] Comment on above: Performed By: #### X M #### [facility] (DEFAULT) [address] [place] [address] Platelets (Bld) [#/Vol] 229 10*3/uL Normal 150-393 [facility] Comment on above: Performed By: #### X M #### [facility] (DEFAULT) [address] [place] [address] RBC (Bld) [#/Vol] 4.88 10*6/uL Normal 3.91-5.04 [facility] Comment on above: Performed By: #### X M #### [facility] (DEFAULT) [address] [place] [address] RBC Distribution 13.4 % Normal 10.8-14.9 [facility] Comment on above: Performed By: #### X M #### [facility] (DEFAULT) [address] [place] [address] WBC (Bld) [#/Vol] 12.14 10*3/uL High 3.99-11.19 [facility] Comment on above: Performed By: #### X M #### [facility] (DEFAULT) [address] [place] [address] CHEM 7 (LYTES,BUN,CREA,GLUC) on 08-14-2024 Anion gap [Moles/Vol] 16 mmol/L 7 - 17 mmol/L [facility] Chloride [Moles/Vol] 101 mmol/L 98 - 10 8 mmol/L [facility] CO2 [Moles/Vol] 23 mmol/L 21 - 31 mmol/L [facility] Creatinine [Mass/Vol] 1.15 mg/dL 0.50 - 1.20 mg/dL [facility] eGFR, CKD-EPI, Female 48 Low - PINF [facility] Glucose [Mass/Vol] 208 mg/dL High 70 - 179 mg/dL [facility] Interpretation and review of laboratory results Abnormal [facility] Osmolality Calc [Osmolality] 304 [facility] Potassium [Moles/Vol] 4.7 mmol/L 3.5 - 5.0 mmol/L [facility] Sodium [Moles/Vol] 135 mmol/L 135 - 145 mmol/L [facility] Urea nitrogen [Mass/Vol] 47 mg/dL High 7 - 25 mg/dL [facility] Urea nitrogen/Creatinine [Mass ratio] 41 mg/mg [facility] Anion gap [Moles/Vol] 16 mmol/L Normal 7-17 [facility] Comment on above: Performed By: #### B LDCULT #### [facility] (DEFAULT) [address] [place] [address] Chloride [Moles/Vol] 101 mmol/L Normal 98-108 [facility] Comment on above: Performed By: #### B LDCULT #### [facility] (DEFAULT) [address] [place] [address] CO2 [Moles/Vol] 23 mmol/L Normal 21-31 [facility] Comment on above: Performed By: #### B LDCULT #### [facility] (DEFAULT) [address] [place] [address] Creatinine [Mass/Vol] 1.15 mg/dL Normal 0.50-1.20 [facility] Comment on above: Performed By: #### B LDCULT #### [facility] (DEFAULT) [address] [place] [address] GFR/1.73 sq M.predicted among non-blacks MDRD (S/P/Bld) [Vol rate/Area] 48 mL/min/{1.73_m2} Low >=60 [facility] Comment on above: Result Comment: Repo rted eGFR is based on the CKD-EPI 2020 equation using creatinine, age, and sex. Performed By: #### B LDCULT #### [facility] (DEFAULT) [address] [place] [address] Glucose [Mass/Vol] 208 mg/dL High Nonfastin -179 mg/dL; Fastin-99 [facility] Comment on above: Performed By: #### B LDCULT #### [facility] (DEFAULT) [address] [place] [address] Osmolality [Osmolality] 304 mosm/kg Normal 278-305 [facility] Comment on above: Performed By: #### B LDCULT #### [facility] (DEFAULT) [address] [place] [address] Potassium [Moles/Vol] 4.7 mmol/L Normal 3.5-5.0 [facility] Comment on above: Performed By: #### B LDCULT #### [facility] (DEFAULT) [address] [place] [address] Sodium [Moles/Vol] 135 mmol/L Normal 135-145 [facility] Comment on above: Performed By: #### B LDCULT #### [facility] (DEFAULT) [address] [place] [address] Urea nitrogen [Mass/Vol] 47 mg/dL High 7-25 [facility] Comment on above: Performed By: #### B LDCULT #### [facility] (DEFAULT) [address] [place] [address] Urea nitrogen/Creatinine [Mass ratio] 41 mg/mg Normal [facility] Comment on above: Performed By: #### B LDCULT #### [facility] (DEFAULT) [address] [place] [address] GLUCOSE POCon 08-14-2024 Glucose [Mass/Vol] 204 mg/dL High 70 - 179 mg/dL [facility] Interpretation and review of laboratory results Abnormal [facility] POC Sample Type CAPBL [facility] Glucose [Mass/Vol] 264 mg/dL High 70 - 179 mg/dL [facility] Interpretation and review of laboratory results Abnormal [facility] POC Sample Type CAPBL [facility] Glucose [Mass/Vol] 189 mg/dL High 70 - 179 mg/dL [facility] Interpretation and review of laboratory results Abnormal [facility] POC Sample Type CAPBL [facility] MAGNESIUMon 08-14-2024 Interpretation and review of laboratory results Normal [facility] Magnesium [Mass/Vol] 1.6 mg/dL 1.6 - 2 .6 mg/dL [facility] Magnesium [Mass/Vol] 1.6 mg/dL Normal 1.6-2.6 [facility] Comment on above: Performed By: #### B LDCULT #### [facility] (DEFAULT) [address] [place] [address] No Panel Informationon 08-14 [facility] CBC,PLATELETSon 08-13-2024 Erythrocyte distribution width (RBC) [Ratio] 13.4 % 10.8 - 14.9 % [facility] Hematocrit (Bld) [Volume fraction] 45.7 % High 34.9 - 44.3 % [facility] Hemoglobin (Bld) [Mass/Vol] 14.3 g/dL 11.4 - 15.2 g/dL [facility] Interpretation and review of laboratory results Abnormal [facility] MCH (RBC) [Entitic mass] 29.5 pg 25.9 - 33.9 pg [facility] MCHC (RBC) [Mass/Vol] 31.3 g/dL Low 31.4 - 35.9 g/dL [facility] MCV (RBC) [Entitic vol] 94.2 fL 79.6 - 97.7 fL [facility] Platelet mean volume (Bld) [Entitic vol] 11.7 fL 8.5 - 12.2 fL [facility] Platelets (Bld) [#/Vol] 245 10*3/uL 150 - 393 K/uL [facility] RBC (Bld) [#/Vol] 4.85 10*6/uL [facility] WBC (Bld) [#/Vol] 12.02 10*3/uL High 3.99 - 11.19 K/uL [facility] Hematocrit (Bld) [Volume fraction] 45.7 % High 34.9-44.3 [facility] Comment on above: Performed By: #### H EMOGC #### [facility] (DEFAULT) [address] [address] Hemoglobin (Bld) [Mass/Vol] 14.3 g/dL Normal 11.4-15.2 [facility] Comment on above: Performed By: #### H EMOGC #### [facility] (DEFAULT) [address] [place] [address] MCV (RBC) [Entitic vol] 94.2 fL Normal 79.6-97.7 [facility] Comment on above: Performed By: #### H EMOGC #### [facility] (DEFAULT) [address] [place] [address] Mean Cell Hgb 29.5 pg Normal 25.9-33.9 [facility] Comment on above: Performed By: #### H EMOGC #### [facility] (DEFAULT) [address] [address] Mean Cell Hgb Conc 31.3 g/dL Low 31.4-35.9 [facility] Comment on above: Performed By: #### H EMOGC #### [facility] (DEFAULT) [address] [place] [address] Platelet mean volume (Bld) [Entitic vol] 11.7 fL Normal 8.5-12.2 [facility] Comment on above: Performed By: #### H EMOGC #### [facility] (DEFAULT) [address] [address] Platelets (Bld) [#/Vol] 245 10*3/uL Normal 150-393 [facility] Comment on above: Performed By: #### H EMOGC #### [facility] (DEFAULT) [address] [place] [address] RBC (Bld) [#/Vol] 4.85 10*6/uL Normal 3.91-5.04 [facility] Comment on above: Performed By: #### H EMOGC #### [facility] (DEFAULT) [address] [place] [address] RBC Distribution 13.4 % Normal 10.8-14.9 [facility] Comment on above: Performed By: #### H [facility] #### [facility] (DEFAULT) [address] [place] [address] WBC (Bld) [#/Vol] 12.02 10*3/uL High 3.99-11.19 [facility] Comment on above: Performed By: #### H [facility] #### [facility] (DEFAULT) [address] [place] [address] CHEM 7 (LYTES,BUN,CREA,GLUC) on 08-13-2024 Anion gap [Moles/Vol] 15 mmol/L 7 - 17 mmol/L [facility] Chloride [Moles/Vol] 104 mmol/L 98 - 10 8 mmol/L [facility] CO2 [Moles/Vol] 23 mmol/L 21 - 31 mmol/L [facility] Creatinine [Mass/Vol] 1.18 mg/dL 0.50 - 1.20 mg/dL [facility] eGFR, CKD-EPI, Female 47 Low - PINF [facility] Glucose [Mass/Vol] 225 mg/dL High 70 - 179 mg/dL [facility] Interpretation and review of laboratory results Abnormal [facility] Osmolality Calc [Osmolality] 311 High [facility] Potassium [Moles/Vol] 4.6 mmol/L 3.5 - 5.0 mmol/L [facility] Sodium [Moles/Vol] 137 mmol/L 135 - 145 mmol/L [facility] Urea nitrogen [Mass/Vol] 55 mg/dL High 7 - 25 mg/dL [facility] Urea nitrogen/Creatinine [Mass ratio] 47 mg/mg [facility] Anion gap [Moles/Vol] 15 mmol/L Normal 7-17 [facility] Comment on above: Performed By: #### H [facility] #### [facility] (DEFAULT) [address] [place] [address] Chloride [Moles/Vol] 104 mmol/L Normal 98-108 [facility] Comment on above: Performed By: #### H EMO #### [facility] (DEFAULT) [address] [place] [address] CO2 [Moles/Vol] 23 mmol/L Normal 21-31 [facility] Comment on above: Performed By: #### H EMOGC #### [facility] (DEFAULT) [address] [place] [address] Creatinine [Mass/Vol] 1.18 mg/dL Normal 0.50-1.20 [facility] Comment on above: Performed By: #### H EMO #### [facility] (DEFAULT) [address] [place] [address] GFR/1.73 sq M.predicted among non-blacks MDRD (S/P/Bld) [Vol rate/Area] 47 mL/min/{1.73_m2} Low >=60 [facility] Comment on above: Result Comment: Repo rted eGFR is based on the CKD-EPI 2020 equation using creatinine, age, and sex. Performed By: #### H EMO #### [facility] (DEFAULT) [address] [place] [address] Glucose [Mass/Vol] 225 mg/dL High Nonfastin -179 mg/dL; Fastin-99 [facility] Comment on above: Performed By: #### H EMO #### [facility] (DEFAULT) [address] [place] [address] Osmolality [Osmolality] 311 mosm/kg High 278-305 [facility] Comment on above: Performed By: #### H EMO #### [facility] (DEFAULT) [address] [place] [address] Potassium [Moles/Vol] 4.6 mmol/L Normal 3.5-5.0 [facility] Comment on above: Performed By: #### H EMO #### [facility] (DEFAULT) [address] [place] [address] Sodium [Moles/Vol] 137 mmol/L Normal 135-145 [facility] Comment on above: Performed By: #### H EMOGC #### [facility] (DEFAULT) [address] [place] [address] Urea nitrogen [Mass/Vol] 55 mg/dL High 7-25 [facility] Comment on above: Performed By: #### H EMOGC #### [facility] (DEFAULT) [address] [place] [address] Urea nitrogen/Creatinine [Mass ratio] 47 mg/mg Normal [facility] Comment on above: Performed By: #### H [facility] #### [facility] (DEFAULT) [address] [place] [address] GLUCOSE POCon 08-13-2024 Glucose [Mass/Vol] 195 mg/dL High 70 - 179 mg/dL [facility] Interpretation and review of laboratory results Abnormal [facility] POC Sample Type CAPBL [facility] Glucose [Mass/Vol] 198 mg/dL High 70 - 179 mg/dL [facility] Interpretation and review of laboratory results Abnormal [facility] POC Sample Type CAPBL [facility] Glucose [Mass/Vol] 158 mg/dL 70 - 179 mg/dL [facility] Glucose [Mass/Vol] 211 mg/dL High 70 - 179 mg/dL [facility] Interpretation and review of laboratory results Abnormal [facility] POC Sample Type CAPBL [facility] Glucose [Mass/Vol] 240 mg/dL High 70 - 179 mg/dL [facility] Interpretation and review of laboratory results Abnormal [facility] POC [facility] MAGNESIUM[facility] 08-13-2024 Interpretation and review of laboratory results Normal [facility] Magnesium [Mass/Vol] 1.8 mg/dL 1.6 - 2 .6 mg/dL [facility] Magnesium [Mass/Vol] 1.8 mg/dL Normal 1.6-2.6 [facility] Comment on above: Performed By: #### H [facility] #### [facility] (DEFAULT) [address] [place] [address] No Panel Informationon 08-13 [facility] CBC,PLATELETSon 08-12-2024 Erythrocyte distribution width (RBC) [Ratio] 13.6 % 10.8 - 14.9 % [facility] Hematocrit (Bld) [Volume fraction] 45.1 % High 34.9 - 44.3 % [facility] Hemoglobin (Bld) [Mass/Vol] 14.3 g/dL 11.4 - 15.2 g/dL [facility] Interpretation and review of laboratory results Abnormal [facility] MCH (RBC) [Entitic mass] 29.7 pg 25.9 - 33.9 pg [facility] MCHC (RBC) [Mass/Vol] 31.7 g/dL 31.4 - 35.9 g/dL [facility] MCV (RBC) [Entitic vol] 93.6 fL 79.6 - 97.7 fL [facility] Platelet mean volume (Bld) [Entitic vol] 11.4 fL 8.5 - 12.2 fL [facility] Platelets (Bld) [#/Vol] 241 10*3/uL 150 - 393 K/uL [facility] RBC (Bld) [#/Vol] 4.82 10*6/uL [facility] WBC (Bld) [#/Vol] 14.32 10*3/uL High 3.99 - 11.19 K/uL [facility] Hematocrit (Bld) [Volume fraction] 45.1 % High 34.9-44.3 [facility] Comment on above: Performed By: #### H [facility] #### [facility] (DEFAULT) [address] [place] [address] Hemoglobin (Bld) [Mass/Vol] 14.3 g/dL Normal 11.4-15.2 [facility] Comment on above: Performed By: #### H EMOGC #### [facility] (DEFAULT) [address] [address] MCV (RBC) [Entitic vol] 93.6 fL Normal 79.6-97.7 [facility] Comment on above: Performed By: #### H EMOGC #### [facility] (DEFAULT) [address] [address] Mean Cell Hgb 29.7 pg Normal 25.9-33.9 [facility] Comment on above: Performed By: #### H EMOGC #### [facility] (DEFAULT) [address] [address] Mean Cell Hgb Conc 31.7 g/dL Normal 31.4-35.9 [facility] Comment on above: Performed By: #### H EMOGC #### [facility] (DEFAULT) [address] [address] Platelet mean volume (Bld) [Entitic vol] 11.4 fL Normal 8.5-12.2 [facility] Comment on above: Performed By: #### H EMOGC #### [facility] (DEFAULT) [address] [address] Platelets (Bld) [#/Vol] 241 10*3/uL Normal 150-393 [facility] Comment on above: Performed By: #### H EMOGC #### [facility] (DEFAULT) [address] [address] RBC (Bld) [#/Vol] 4.82 10*6/uL Normal 3.91-5.04 [facility] Comment on above: Performed By: #### H EMOGC #### [facility] (DEFAULT) [address] [place] [address] RBC Distribution 13.6 % Normal 10.8-14.9 [facility] Comment on above: Performed By: #### H [facility] #### [facility] (DEFAULT) [address] [place] [address] WBC (Bld) [#/Vol] 14.32 10*3/uL High 3.99-11.19 [facility] Comment on above: Performed By: #### H [facility] #### [facility] (DEFAULT) [address] [place] [address] CHEM 7 (LYTES,BUN,CREA,GLUC) on 08-12-2024 Anion gap [Moles/Vol] 15 mmol/L 7 - 17 mmol/L [facility] Chloride [Moles/Vol] 104 mmol/L 98 - 10 8 mmol/L [facility] CO2 [Moles/Vol] 27 mmol/L 21 - 31 mmol/L [facility] Creatinine [Mass/Vol] 1.36 mg/dL High 0.50 - 1.20 mg/dL [facility] eGFR, CKD-EPI, Female 40 Low - PINF [facility] Glucose [Mass/Vol] 126 mg/dL 70 - 179 mg/dL [facility] Interpretation and review of laboratory results Abnormal [facility] Osmolality Calc [Osmolality] 313 High [facility] Potassium [Moles/Vol] 4.5 mmol/L 3.5 - 5.0 mmol/L [facility] Sodium [Moles/Vol] 141 mmol/L 135 - 145 mmol/L [facility] Urea nitrogen [Mass/Vol] 56 mg/dL High 7 - 25 mg/dL [facility] Urea nitrogen/Creatinine [Mass ratio] 41 mg/mg [facility] Anion gap [Moles/Vol] 15 mmol/L Normal 7-17 [facility] Comment on above: Performed By: #### T YPEC #### [facility] (DEFAULT) [address] [place] [address] Chloride [Moles/Vol] 104 mmol/L Normal 98-108 [facility] Comment on above: Performed By: #### T YPEC #### [facility] (DEFAULT) [address] [place] [address] CO2 [Moles/Vol] 27 mmol/L Normal 21-31 [facility] Comment on above: Performed By: #### T YPEC #### [facility] (DEFAULT) [address] [address] Creatinine [Mass/Vol] 1.36 mg/dL High 0.50-1.20 [facility] Comment on above: Performed By: #### T YPEC #### [facility] (DEFAULT) [address] [address] GFR/1.73 sq M.predicted among non-blacks MDRD (S/P/Bld) [Vol rate/Area] 40 mL/min/{1.73_m2} Low >=60 [facility] Comment on above: Result Comment: Repo rted eGFR is based on the CKD-EPI 2020 equation using creatinine, age, and sex. Performed By: #### T YPEC #### [facility] (DEFAULT) [address] [place] [address] Glucose [Mass/Vol] 126 mg/dL Normal Nonfastin -179 mg/dL; Fastin-99 [facility] Comment on above: Performed By: #### T YPEC #### [facility] (DEFAULT) [address] [place] [address] Osmolality [Osmolality] 313 mosm/kg High 278-305 [facility] Comment on above: Performed By: #### T YPEC #### [facility] (DEFAULT) [address] [address] Potassium [Moles/Vol] 4.5 mmol/L Normal 3.5-5.0 [facility] Comment on above: Performed By: #### T YPEC #### [facility] (DEFAULT) [address] [place] [address] Sodium [Moles/Vol] 141 mmol/L Normal 135-145 [facility] Comment on above: Performed By: #### T YPEC #### [facility] (DEFAULT) [address] [place] [address] Urea nitrogen [Mass/Vol] 56 mg/dL High 7-25 [facility] Comment on above: Performed By: #### T YPEC #### [facility] (DEFAULT) [address] [place] [address] Urea nitrogen/Creatinine [Mass ratio] 41 mg/mg Normal [facility] Comment on above: Performed By: #### T YPEC #### [facility] (DEFAULT) [address] [place] [address] GLUCOSE POCon 08-12-2024 Glucose [Mass/Vol] 231 mg/dL High 70 - 179 mg/dL [facility] Interpretation and review of laboratory results Abnormal [facility] POC Sample Type CAPBL [facility] Glucose [Mass/Vol] 208 mg/dL High 70 - 179 mg/dL [facility] Interpretation and review of laboratory results Abnormal [facility] POC Sample Type CAPBL [facility] Glucose [Mass/Vol] 160 mg/dL 70 - 179 mg/dL [facility] POC Sample Type CAPBL [facility] Glucose [Mass/Vol] 107 mg/dL 70 - 179 mg/dL [facility] POC Sample Type CAPBL [facility] MAGNESIUMon 08-12-2024 Interpretation and review of laboratory results Normal [facility] Magnesium [Mass/Vol] 2.2 mg/dL 1.6 - 2 .6 mg/dL [facility] Magnesium [Mass/Vol] 2.2 mg/dL Normal 1.6-2.6 [facility] Comment on above: Performed By: #### T YPEC #### [facility] (DEFAULT) [address] [place] [address] No Panel Informationon 08-12 [facility] SURG PATH REQUESTOrdered By: Renae Glez on 08-12-2024 Case Report [facility] Clinical History [id number] NVx [id number] [id number] [id number] VRMQgtmrkOz9nVmrK70qn7D 2VbjuL6sjHNOxXAmtMHXzSQ trgGEpLZh7MGKgmXSwxwXwW vSkFEVmlWCibPA5OTOvHQ3k jmuxGHzlHMtlEWPbyjN1UUL suRWgD5ZvSJKsSU9sdaksTY C5NMxrPSXhCAE1KdQxLNSji 1Ffvou5KxSxnPo1x0qxBRQs RZOnvRkak3lhSXW5COTldNX mQ4lygR4lDSEmOI6pywupj6 vfXQmlSPheGXNlxET8qzR2D XYhhZLvW8EfbY2qQDZsRSMd keHxcYzrdZ9vUtHuEMgiBmH pEn2GLFaBElNbLTUtj2OgCO TuBARCuLYfec4peBB3PBFEw 63vMjObBLLnlXBbrJYKkYV0 y5L2ScYqDp5twYHbdXLtvOE psFR3a8Z1UUIjy3PePYHpNu xwYXJ9 [facility] For Immediate Release to Patient's MyChart? Yes Yes [facility] Gross Description [id number] bGF uZzEwMzNcZnRuYmpcdWMxIH tccnRmMVxlcGljMTExMDVcY S0txNggpVb1kEvkDQCnfqK3 yUAlVEpph2fjQKE3w1lsbya tYUUoGXmfPb8tvMEnlYcvNq HkEXOsVDc7oR32WYDcvK1nk FXhBFuitgVcMBDpN8LwFZ5r ZRwmzVFlXSK2pIbnDDHjgva pUqW5MZjyRUKlrnqkIMh3MB nuRKKuaWU9BRZsyQRuB3ZdX QXoMK7yijf2XJS1MYyeKEIb NvO2UFObxFBuXJNujZgdYCs wf525FWU1ZeRrAZVnanGkaE zddT6wSxSpCYNTfYYug1KaT 7fyPB0ifQJvtgHjLNi3MXYe yW8du98cPFCho5Egwuf9ZRw gDvBhZCRoO04uwMWpgpWbNO dpdGggdGhlIHBhdGllbnQnc mGvNO7lIOAeWURpZ9Asl6Cy o00tklWrKcRzOeZsbKWwOLI nskvzErXhUBskTpVvYin1QT IgVGhlIHNwZWNpbWVuIGlzI EXct1knoyP2BFLmNpacp7Ie tHIvJQOottVtuKPaEY5fDUF poyMyb5ImND6lLCUqzdEhRm OwX62mwxLyBA5sHTVuzx9pl A4rOTUnXvIacPdkh4RkFHWi hh4jJINqQzB4aFT7hcGwLmZ zD25pbC5aX5BxLYHhg9XjEU cvLT2soW0pCgSvZXFqTZNsy QTfSGKaisADLBFiZGUrIJ3t kEb6VSkxVliTOLabTjDzJTG 1SKZyrd73RME9BxHwu4H8EY IaGpCvJGNpIN9msVceKPEcP H9gMMUyI0icnK4dvzc1KkVo ZYFhUoO8FHEmcdS8Suf9YXK dYGgur8jwa1LmKBQwOCy9wD gkGyKnZBFds4hwtcUdUnDzG FVpVSMrLVRkfCLrF631j0ev v8dvttQwnYY0TQYcMZP9BNj lwbDuywK4ZTlppDMxBgU0PN ksukEpWRhokxUzxhHhPbb7N OZzS151NDO9hNcef1ftAIF5 ZMRnYKFeZyBmXk6qmJLdG60 7IUKhHZMUHPRlrIm8DXEijv CzjuYdjYNOr966E169l0fgW WVwkwCszOnMpuavj4jwN693 XHBhcGVydzEyMjQwXHBhcGV ewJL4TMRkRN6onznvTCrmVR vwEJWtccN4DFYsoQGaS9FzS XEdHC0ppoxlOEF8XEemBDId YDM1OnVrGBJdu5Phshp6PrL lzh6cko38PAQ8z4JwiHttNY P5NNM1GjRcVp8fuMUvCGHcI A5pBkPstKPzBFTaai65dSrz KSacnbKfaW6rIeQrCKIsgEP xQQFfLN6juPRiSYRebR3gii xjXHBnYnJkcmhlYWRccGdic oQfFz2kzLpyWRJ4JBbdX4oy jL3qUyQ1BYezC0tlsK1lZTc 9ZChwaEX6OFOpqF6rOV3qsg rxn2adJMawDQlcZDYrjbR8v gL6CFPytWTvH6NxhU9qGQWn CY7aqztyk5utDKN4FKkwJYA fKKL7KiKnJGQrk4Mnclc8Rx Fqj3QywSEpZQdzT44by724R BYiysSsL6pgpXDdwimiiMIz fhddAAgjbcC6AJPvEQUvHWh uXGYxXGZzMjJcbGFuZzEwMz NcaGljaFxmMVxkYmNoXGYxX SdlP5nlDmLmLuFuKfHBen4d i5InPTQwdtB5oCeoLFMkq3Q ow8XwRjFXXSOyJ2MuYX7oaZ RwCTWhqm63 [facility] Microscopic Description o3pciHZqXZHlhDUq ZjIyMDA fYYXcv1ycXVUscJWcZuXtIq NcZnRuYmpcdWMxXGRlZmYwe 0fpg202kABbi6tzGCMmJmY9 kNNcLFQwbNYlH166PHUmZZq sl6ems8TpTPYuaUJux8E4RA MGreoqyGc7bQmsC75wf9T7Z yanZ7rjWKShUYNhC3AoMN5w CBUnKxi2GGK0FZK2VDDoAXU tL2RcLX7tBNOllMPdMEk6c2 sxhNamMIGmPCH2u5owZMvbc lXtMS0dab1qtJd8y9dfuhDu YPZwQPEskJHZOHNlI7OhuJv zBf7zdAy6qDprBdcyETN3Vx m2DV0hrr66pjg3mTmsCBGcc cchArD4RYzjRECleixpVIm5 GTynJZYudZT2PAFvjNDrE1R oFDKpDP9iqbh7MUC1IUuaHB GxQaW4LEKmlHIqQRHmbIsbT Rkca774MZG8NtYoBA7cA0Ti n8P0cL1uqPLyZZDzzCDuAaD sBKFhrc0oeABeLMowd7DrHD S0nbL4xTLziZZfNFCwNZ72J ywod4QwGgirTCT8LOAxxnIi d1Yuv2diEmUnktGqT5omA3A yZHJoZWFkXHBnYnJkcmZvb3 Mpu0SzfIGsmAu8f4yxRXEuD IHwsKfvt4opNFP7CSHmO1K5 aHGci7zxDSxiDXGjfFM4nfM 1ODHtzLVtC1BrrD5fERDoIE 0ioqs5s3unGOK7WInlFLVpZ aE4shQ9RBLpdKMwIYMmxTyx QRogk506RPE1EwYcCPXmz5X cL1MjjRflP70wqHcuD91mMP MykGhlmP3wiKwrkI0bHyDnV nMyNFxxbFxwbGFpblxmMVxm skIzPIbkfkvuNCIkSYeiO2z uWlGxQNDfgGoxSSayj9GfLW NnOXJzGjVnLQNqcVZkh2Bfx 8BfTwZgoWKfmL4ngPwdzjE3 BSTxbYTtEj2imHMsTgMaaCR yfQ== [facility] Pathologic Diagnosis n2gbsYViVJOpkYRyUSH wNVx kydVkWRUmxSCyK8LoargySM byVO5tVS3dsVgwwPUyuSCgV CAgBuBcm6jdo681lTWkp0ht YJTTgenchOq0x4ncYFQQbD9 ig1p9tY99JNClsQ3bgJBwYS xavoJpIGoqqoDmalLgKwb2J AD9lGrbSzxqdFB8kXRgxQQ1 EUtna1ElsAfuhPmcSFVeHFB nQDB7O8aiwFZ7pSXflSjfjO AkXM4zu1cbxJB6ybXwCLY3m OpgoGX1kPjxvrzhi8fneGH1 dXU0RBomgKV1OSfrAbWxG3z kEMGddE7qT52qL5jmRNBtdR psGOzfQGEdxVU0AEF0PONee 1xsZXZlbHRleHRcJzAxXCdi Ykq9d6xrAXJokM54cUCprwB 7fVxmMVxmczIwXGxpMzYwXG ZpMTgwfXtcbGlzdGxldmVsX RudhuVgnsXwPpWuoMU3JUyi OfXxAhCuwZR1ZKawIbNmwYV 2WSuyeBPjuGH4XJuzvOU9BO f1AKp0NFkbRLpxUji1gXomt SC3JJlueN7fKFFxD64bLmLa OyZaKJ30PDogd1RaXYXeaMs rAYImaY9sOvUcYIzylbXatg ZjbjIzXGxldmVsamMwXGxld eKno2MvchDldMM4KTzpqhSh aZT6eYgcVKNmI4B3H448FUi kxwAjdwHbJlKlony1ADIbAA HyQvU2f8pvtLU2sSM4UMahr LP5LFzjTcFvM0azSIUwhT3q M02vD6nzFDOqcFpgXVgmFQA vwZS8KWY1JQNkj8quXFKzlE ZmzWWlTqNzPZomUhq5u2oaF AYszY42xTAwvaW2pQtuPUln czIwfXtcbGlzdGxldmVsXGx hlqWddbPjOpXpyLW1BPzqMx RlQdLrwNA8LBmbJtImzHM2D CkkxSUzmTW8ARrfhNH4VDf8 DQp2VVbtPZkkOjj0tHbxnVS 8XIabrL7pLRZhZ03vLsQxVw MjGJ84URscr0YeOUSwaQfuJ MHbzZ2kOiVvGLifpzUadhJo bjIzXGxldmVsamMwXGxldmV fn2QxwcDptRR8ACisesZpaJ B9eGrsTHSaG9X5G453MAvkp bKpzmVjWfRjhxa6JPObZBYx ArA7s7gkxCT5kKZ0JXmltBW 1HXelTcJsS4zsOLCkrH4kU7 8oQ1pyRSZwqXdlVXieBWZht VP6IJL5JYJof9qcCKFypJHn xKExOgYgHTmiUpv9o8cxLHW clC32jSLfsmM1zOeaMInswm IwfXtcbGlzdGxldmVsXGxld uPwylEnErOcmJQ1TAvwGrWr CoLmbVA9PFrjEoHhbUN4RHi kcKYqzNF4CYnufXB4IJr6TR t3UCdrSEtjKdg2aXnjuKK8F RifuD5fOIJsD67cEhTuYxSb MZ18YBjuw1ObAURxfAljXGL lzV9tKgWcRTmnjuDxwtBlmm IzXGxldmVsamMwXGxldmVsc 8KqtpOllDA4GDapboHxyRS4 rJbhQGLrH0K6R013CFtnsyU cpdBkStQrxtq1YTZuTWOoDl A0fY01XRwkzLuujD82YFXnj SWsdUSsrUU9ANrkjMyxxI39 WHVmcHIaRNvyp4FoNZFbFiO 1TjWxFQHkoRzcmM56JELznY FjS732jxIrCUnyNJ32EVOlj GVydzEyMjQwXHBhcGVyaDE1 TPFvPM1sqnuvHRwhOWazXPN fceK1MPBawEKvL6DhAJFlST 3fcotvKLK4GQapQZYkXEI8I rPdFXRmi7Gnfbk2UmTtnJLf AVoedQArvqnoAGZzMdVfV6J qOIOyXVH6m80hX7cuZDAgc7 BzeTpccGFyXGxpMzYwXGZpM LknTPjfgcD0WVyjzjRwnIm9 jHLxmGttaV4tYyhldtBiCLX lTSMWq8ArjCNwog5uqO0sGQ SxwyBOguFIUHicI16uUND5P EDfrBfmq8BzZCpgNZ08pNNx ZWRccGFyfQ== [facility] Professional Interpretation Performed at: c4hbtIXlWXShtZSgGzAvEXC mMLQdu1yoWXRkgBZhLmDwYl NcZnRuYmpcdWMxXGRlZmYwe 0yzd453lBPrb7eiPGMtTmS4 iWRuKRJtrPKnM944KEAtITn hl9msk9HiRLTalRAzd3R1ST PIpdmntQc1fVmbI07fo4L1D kacN2qcQMMpQEElD6FxJG2h RQUnPhp5JMU0UYR8JHTfHTY sQ2EsQS7dGUQjfNGlESu7h7 ozfPjkXSNlOQZ4b1ptMSsbw eCqQT5fxb2cuQx3h3vnbtTv SSFmFSMnnJPHBDYhT6HgyOt pWt5cyWz5jFxiYmqmOXQ8Av m8SD9oki66qbd6pTfqIGRvf yfnPhN6HJowQPCsojfpPLp1 IHlhKYMpdKH3FWYhaESeQ9X pOIYvQH9wtxj7BLL3XFtbZG PfSdO4JCOcbNPuYWRfwAdtG Tnio876CTY6KyQaWB8jM0Nf a5S7gC7eiHGeYPYgkYEyIyP dZWCjob6cjQDrVZfkj8BzAE J5juY8qCFpbJTpCPDbBG23K kflx2RgZpnvZEH5KVNnaqWq s3Urh7ynQaDdnaRrS1ncZ2N yZHJoZWFkXHBnYnJkcmZvb3 Czg3TgeFSseIz9q2otEOKuU LYbtEofq2jkFQJ9GALgW3E0 zIQbc4emFJqeNNCkrDB7uyY 0RERngJFxU0CvfS9cYSDmVW 2yzna0c6itIWX3AVexZGDnP cA1inN0WJScdWAbIKMcaXod HJkyj952IBA0JlMlIIGzx7Y eQ9TfzYuwC98wmKiqI22jZC GsrNinjM0omWvejA4fFvQwO nMyNFxwYXJkXHBsYWluXGYx XGZzMjJcbGFuZzEwMzNcaGl jaFxmMVxkYmNoXGYxXGxvY2 kxOvPqEgLfQvCWH0NhO5HKG tEVBY3TNBmFCMgiY6CQGJQJ OMDPKB6JZ5BRSLyZGp1FEXH NQfktqIGiYMVvZIKTMYV1GA EjfCarMLOwKNKiwdKFg8f9a QJ0zrddP2ahaaA6OeYdKRmp YXJ9 [facility] CBC,PLATELETSon 08-11-2024 Erythrocyte distribution width (RBC) [Ratio] 13.7 % 10.8 - 14.9 % [facility] Hematocrit (Bld) [Volume fraction] 43.2 % 34.9 - 44.3 % [facility] Hemoglobin (Bld) [Mass/Vol] 14 g/dL 11.4 - 15.2 g/dL [facility] Interpretation and review of laboratory results Abnormal [facility] MCH (RBC) [Entitic mass] 29.9 pg 25.9 - 33.9 pg [facility] MCHC (RBC) [Mass/Vol] 32.4 g/dL 31.4 - 35.9 g/dL [facility] MCV (RBC) [Entitic vol] 92.1 fL 79.6 - 97.7 fL [facility] Platelet mean volume (Bld) [Entitic vol] 11.5 fL 8.5 - 12.2 fL [facility] Platelets (Bld) [#/Vol] 240 10*3/uL 150 - 393 K/uL [facility] RBC (Bld) [#/Vol] 4.69 10*6/uL [facility] WBC (Bld) [#/Vol] 11.76 10*3/uL High 3.99 - 11.19 K/uL [facility] Hematocrit (Bld) [Volume fraction] 43.2 % Normal 34.9-44.3 [facility] Comment on above: Performed By: #### T YPEC #### [facility] (DEFAULT) [address] [place] [id number] Hemoglobin (Bld) [Mass/Vol] 14.0 g/dL Normal 11.4-15.2 [facility] Comment on above: Performed By: #### T YPEC #### [facility] (DEFAULT) [address] [address] [address] MCV (RBC) [Entitic vol] 92.1 fL Normal 79.6-97.7 O [facility] Comment on above: Performed By: #### T YPEC #### [facility] (DEFAULT) [address] [place] [address] Mean Cell Hgb 29.9 pg Normal 25.9-33.9 [facility] Comment on above: Performed By: #### T YPEC #### [facility] (DEFAULT) [address] [place] [address] Mean Cell Hgb Conc 32.4 g/dL Normal 31.4-35.9 [facility] Comment on above: Performed By: #### T YPEC #### [facility] (DEFAULT) [address] [place] [address] Platelet mean volume (Bld) [Entitic vol] 11.5 fL Normal 8.5-12.2 [facility] Comment on above: Performed By: #### T YPEC #### [facility] (DEFAULT) [address] [place] [address] Platelets (Bld) [#/Vol] 240 10*3/uL Normal 150-393 [facility] Comment on above: Performed By: #### T YPEC #### [facility] (DEFAULT) [address] [place] [address]173 RBC (Bld) [#/Vol] 4.69 10*6/uL Normal 3.91-5.04 [facility] Comment on above: Performed By: #### T YPEC #### [facility] (DEFAULT) [address] [place] [address] RBC Distribution 13.7 % Normal 10.8-14.9 [facility] Comment on above: Performed By: #### T YPEC #### [facility] (DEFAULT) [address] [place] [address]87 WBC (Bld) [#/Vol] 11.76 10*3/uL High 3.99-11.19 [facility] Comment on above: Performed By: #### T YPEC #### [facility] (DEFAULT) [address] [place] [address] CHEM 7 (LYTES,BUN,CREA,GLUC) on 08-11-2024 Anion gap [Moles/Vol] 14 mmol/L 7 - 17 mmol/L [facility] Chloride [Moles/Vol] 103 mmol/L 98 - 10 8 mmol/L [facility] CO2 [Moles/Vol] 26 mmol/L 21 - 31 mmol/L [facility] Creatinine [Mass/Vol] 1.32 mg/dL High 0.50 - 1.20 mg/dL [facility] eGFR, CKD-EPI, Female 41 Low - PINF [facility] Glucose [Mass/Vol] 127 mg/dL 70 - 179 mg/dL [facility] Interpretation and review of laboratory results Abnormal [facility] Osmolality Calc [Osmolality] 306 High [facility] Potassium [Moles/Vol] 4.6 mmol/L 3.5 - 5.0 mmol/L [facility] Sodium [Moles/Vol] 138 mmol/L 135 - 145 mmol/L [facility] Urea nitrogen [Mass/Vol] 53 mg/dL High 7 - 25 mg/dL [facility] Urea nitrogen/Creatinine [Mass ratio] 40 mg/mg [facility] Anion gap [Moles/Vol] 14 mmol/L Normal 7-17 [facility] Comment on above: Performed By: #### H EMO #### [facility] (DEFAULT) [address] [place] [address] Chloride [Moles/Vol] 103 mmol/L Normal 98-108 [facility] Comment on above: Performed By: #### H EMO #### [facility] (DEFAULT) [address] [place] [address] CO2 [Moles/Vol] 26 mmol/L Normal 21-31 [facility] Comment on above: Performed By: #### H [facility] #### [facility] (DEFAULT) [address] [place] [address] Creatinine [Mass/Vol] 1.32 mg/dL High 0.50-1.20 [facility] Comment on above: Performed By: #### H [facility] #### [facility] (DEFAULT) [address] [place] [address] GFR/1.73 sq M.predicted among non-blacks MDRD (S/P/Bld) [Vol rate/Area] 41 mL/min/{1.73_m2} Low >=60 [facility] Comment on above: Result Comment: Repo rted eGFR is based on the CKD-EPI 2020 equation using creatinine, age, and sex. Performed By: #### H [facility] #### [facility] (DEFAULT) [address] [place] [address]77 Glucose [Mass/Vol] 127 mg/dL Normal Nonfastin -179 mg/dL; Fastin-99 [facility] Comment on above: Performed By: #### H EMOGC #### [facility] (DEFAULT) [address] [place] [address] Osmolality [Osmolality] 306 mosm/kg High 278-305 [facility] Comment on above: Performed By: #### H EMOGC #### [facility] (DEFAULT) [address] [place] [address] Potassium [Moles/Vol] 4.6 mmol/L Normal 3.5-5.0 [facility] Comment on above: Performed By: #### H EMOGC #### [facility] (DEFAULT) [address] [place] [address] Sodium [Moles/Vol] 138 mmol/L Normal 135-145 [facility] Comment on above: Performed By: #### H EMOGC #### [facility] (DEFAULT) [address] [place] [address] Urea nitrogen [Mass/Vol] 53 mg/dL High 7-25 [facility] Comment on above: Performed By: #### H EMOGC #### [facility] (DEFAULT) [address] [place] [address] Urea nitrogen/Creatinine [Mass ratio] 40 mg/mg Normal [facility] Comment on above: Performed By: #### H EMOGC #### [facility] (DEFAULT) [address] [place] [address] GLUCOSE POCon 08-11-2024 Glucose [Mass/Vol] 213 mg/dL High 70 - 179 mg/dL [facility] Interpretation and review of laboratory results Abnormal [facility] POC Sample Type [facility] Glucose [Mass/Vol] 255 mg/dL High 70 - 179 mg/dL [facility] Interpretation and review of laboratory results Abnormal [facility] POC Sample Type [facility] Glucose [Mass/Vol] 190 mg/dL High 70 - 179 mg/dL [facility] Interpretation and review of laboratory results Abnormal [facility] POC Sample Type [facility] Glucose [Mass/Vol] 205 mg/dL High 70 - 179 mg/dL [facility] Interpretation and review of laboratory results Abnormal [facility] POC Sample Type CAPBL [facility] MAGNESIUMon 08-11-2024 Interpretation and review of laboratory results Normal [facility] Magnesium [Mass/Vol] 1.9 mg/dL 1.6 - 2 .6 mg/dL [facility] Magnesium [Mass/Vol] 1.9 mg/dL Normal 1.6-2.6 [facility] Comment on above: Performed By: #### M GO, CHM7 #### [facility] (DEFAULT) [address] [place] [address] No Panel Informationon 08-11 [facility] BLOOD CULTUREon 08-10-2024 Bacteria identified Cx Nom (Unsp spec) NO GROWTH DAY 5 OF 5 Normal [facility] Comment on above: Order Comment: 2 [...] bottle. Performed By: #### T YPEC #### [facility] (DEFAULT) [address] [place] [address] Bacteria identified Cx Nom (Unsp spec) NO GROWTH DAY 5 OF 5 Normal [facility] Comment on above: Order Comment: 2 [...] bottle. Performed By: #### B LDCULT #### [facility] (DEFAULT) [address] [place] [address] CBC,PLATELETSon 08-10-2024 Erythrocyte distribution width (RBC) [Ratio] 13.3 % 10.8 - 14.9 % [facility] Hematocrit (Bld) [Volume fraction] 45.1 % High 34.9 - 44.3 % [facility] Hemoglobin (Bld) [Mass/Vol] 14.1 g/dL 11.4 - 15.2 g/dL [facility] Interpretation and review of laboratory results Abnormal [facility] MCH (RBC) [Entitic mass] 29.1 pg 25.9 - 33.9 pg [facility] MCHC (RBC) [Mass/Vol] 31.3 g/dL Low 31.4 - 35.9 g/dL [facility] MCV (RBC) [Entitic vol] 93 fL 79.6 - 97.7 fL [facility] Platelet mean volume (Bld) [Entitic vol] 11.4 fL 8.5 - 12.2 fL [facility] Platelets (Bld) [#/Vol] 216 10*3/uL 150 - 393 K/uL [facility] RBC (Bld) [#/Vol] 4.85 10*6/uL [facility] WBC (Bld) [#/Vol] 13.78 10*3/uL High 3.99 - 11.19 K/uL [facility] Hematocrit (Bld) [Volume fraction] 45.1 % High 34.9-44.3 [facility] Comment on above: Performed By: #### H [facility] #### [facility] (DEFAULT) [address] [address] Hemoglobin (Bld) [Mass/Vol] 14.1 g/dL Normal 11.4-15.2 [facility] Comment on above: Performed By: #### H [facility] #### [facility] (DEFAULT) [address] [address] MCV (RBC) [Entitic vol] 93.0 fL Normal 79.6-97.7 O [facility] Comment on above: Performed By: #### H [facility] #### [facility] (DEFAULT) [address] [address] Mean Cell Hgb 29.1 pg Normal 25.9-33.9 [facility] Comment on above: Performed By: #### H EMOGC #### [facility] (DEFAULT) [address] [address] Mean Cell Hgb Conc 31.3 g/dL Low 31.4-35.9 [facility] Comment on above: Performed By: #### H EMOGC #### [facility] (DEFAULT) [address] [address] Platelet mean volume (Bld) [Entitic vol] 11.4 fL Normal 8.5-12.2 [facility] Comment on above: Performed By: #### H EMOGC #### [facility] (DEFAULT) [address] [address] Platelets (Bld) [#/Vol] 216 10*3/uL Normal 150-393 [facility] Comment on above: Performed By: #### H EMOGC #### [facility] (DEFAULT) [address] [address] RBC (Bld) [#/Vol] 4.85 10*6/uL Normal 3.91-5.04 [facility] Comment on above: Performed By: #### H EMOGC #### [facility] (DEFAULT) [address] [address] RBC Distribution 13.3 % Normal 10.8-14.9 [facility] Comment on above: Performed By: #### H EMOGC #### [facility] (DEFAULT) [address] [address] WBC (Bld) [#/Vol] 13.78 10*3/uL High 3.99-11.19 [facility] Comment on above: Performed By: #### H EMOGC #### [facility] (DEFAULT) [address] [place] [address] CHEM 7 (LYTES,BUN,CREA,GLUC) on 08-10-2024 Anion gap [Moles/Vol] 16 mmol/L 7 - 17 mmol/L [facility] Chloride [Moles/Vol] 103 mmol/L 98 - 10 8 mmol/L [facility] CO2 [Moles/Vol] 24 mmol/L 21 - 31 mmol/L [facility] Creatinine [Mass/Vol] 1.36 mg/dL High 0.50 - 1.20 mg/dL [facility] eGFR, CKD-EPI, Female 40 Low - PINF [facility] Glucose [Mass/Vol] 186 mg/dL High 70 - 179 mg/dL [facility] Interpretation and review of laboratory results Abnormal [facility] Osmolality Calc [Osmolality] 308 High [facility] Potassium [Moles/Vol] 4.9 mmol/L 3.5 - 5.0 mmol/L [facility] Sodium [Moles/Vol] 138 mmol/L 135 - 145 mmol/L [facility] Urea nitrogen [Mass/Vol] 47 mg/dL High 7 - 25 mg/dL [facility] Urea nitrogen/Creatinine [Mass ratio] 35 mg/mg [facility] Anion gap [Moles/Vol] 16 mmol/L Normal 7-17 [facility] Comment on above: Performed By: #### CAMERON PALACIOS ####[facility] (DEFAULT)[address] [place] [address] Chloride [Moles/Vol] 103 mmol/L Normal 98-108 [facility] Comment on above: Performed By: #### CAMERON PALACIOS ####[facility] (DEFAULT)[address] [place] [address] CO2 [Moles/Vol] 24 mmol/L Normal 21-31 [facility] Comment on above: Performed By: #### CAMERON PALACIOS ####[facility] (DEFAULT)[address] [place] [address] Creatinine [Mass/Vol] 1.36 mg/dL High 0.50-1.20 [facility] Comment on above: Performed By: #### HEYDI PALACIOS7 ####[facility] (DEFAULT)[address] [place] [address] GFR/1.73 sq M.predicted among non-blacks MDRD (S/P/Bld) [Vol rate/Area] 40 mL/min/{1.73_m2} Low >=60 [facility] Comment on above: Result Comment: Repo rted eGFR is based on the CKD-EPI 2020 equation using creatinine, age, and sex. Performed By: #### HEYDI PALACIOS7 ####[facility] (DEFAULT)[address] [facility] [place] [address] Glucose [Mass/Vol] 186 mg/dL High Nonfastin -179 mg/dL; Fastin-99 [facility] Comment on above: Performed By: #### CAMERON PALACIOS ####[facility] (DEFAULT)[address] [place] [address], [place] [address] Osmolality [Osmolality] 308 mosm/kg High 278-305 [facility] Comment on above: Performed By: #### HEYDI PALACIOS7 ####[facility] (DEFAULT)[address] [facility] [place] [address] Potassium [Moles/Vol] 4.9 mmol/L Normal 3.5-5.0 [facility] Comment on above: Performed By: #### HEYDI PALACIOS7 ####[facility] (DEFAULT)[address] [facility] [place] [address] Sodium [Moles/Vol] 138 mmol/L Normal 135-145 [facility] Comment on above: Performed By: #### HEYDI PALACIOS7 ####[facility] (DEFAULT)[address] [facility] [place] [address] Urea nitrogen [Mass/Vol] 47 mg/dL High 7-25 [facility] Comment on above: Performed By: #### Jaiden NGUYEN CHM7 ####[facility] (DEFAULT)[address] [place] [address] Urea nitrogen/Creatinine [Mass ratio] 35 mg/mg Normal [facility] Comment on above: Performed By: #### Jaiden NGUYEN CHM7 ####[facility] (DEFAULT)[address] [place] [address] GLUCOSE POCon 08-10-2024 Glucose [Mass/Vol] 144 mg/dL 70 - 179 mg/dL [facility] POC Sample Type CAPBL [facility] Glucose [Mass/Vol] 177 mg/dL 70 - 179 mg/dL [facility] POC Sample Type [facility] Glucose [Mass/Vol] 180 mg/dL High 70 - 179 mg/dL [facility] Interpretation and review of laboratory results Abnormal [facility] POC Sample Type CAPBL [facility] Glucose [Mass/Vol] 193 mg/dL High 70 - 179 mg/dL [facility] Interpretation and review of laboratory results Abnormal [facility] POC Sample Type [facility] Glucose [Mass/Vol] 200 mg/dL High 70 - 179 mg/dL [facility] Interpretation and review of laboratory results Abnormal [facility] POC Sample Type CAPBL [facility] Glucose [Mass/Vol] 198 mg/dL High 70 - 179 mg/dL [facility] Interpretation and review of laboratory results Abnormal [facility] POC Sample Type CAPBL [facility] MAGNESIUMon 08-10-2024 Interpretation and review of laboratory results Normal [facility] Magnesium [Mass/Vol] 1.8 mg/dL 1.6 - 2 .6 mg/dL [facility] Magnesium [Mass/Vol] 1.8 mg/dL Normal 1.6-2.6 [facility] Comment on above: Performed By: #### M M7 ####[facility] (DEFAULT)[address] [place] [address] No Panel Informationon 08-10 [facility] URINE CULTUREOrdered By: Franklin Carcamo on 08-10-2024 Bacteria identified Cx Nom (Unsp spec) Growth [facility] Bacteria identified Cx Nom (Unsp spec) KLEBSIELLA PNEUMONIAE Abnormal [facility] Interpretation and review of laboratory results Abnormal [facility] CBC,PLATELETSon 08-09-2024 Erythrocyte distribution width (RBC) [Ratio] 13.5 % 10.8 - 14.9 % [facility] Hematocrit (Bld) [Volume fraction] 44.4 % High 34.9 - 44.3 % [facility] Hemoglobin (Bld) [Mass/Vol] 14.1 g/dL 11.4 - 15.2 g/dL [facility] Interpretation and review of laboratory results Abnormal [facility] MCH (RBC) [Entitic mass] 29.4 pg 25.9 - 33.9 pg [facility] MCHC (RBC) [Mass/Vol] 31.8 g/dL 31.4 - 35.9 g/dL [facility] MCV (RBC) [Entitic vol] 92.7 fL 79.6 - 97.7 fL [facility] Platelet mean volume (Bld) [Entitic vol] 11.5 fL 8.5 - 12.2 fL [facility] Platelets (Bld) [#/Vol] 226 10*3/uL 150 - 393 K/uL [facility] RBC (Bld) [#/Vol] 4.79 10*6/uL [facility] WBC (Bld) [#/Vol] 12.37 10*3/uL High 3.99 - 11.19 K/uL [facility] Hematocrit (Bld) [Volume fraction] 44.4 % High 34.9-44.3 [facility] Comment on above: Performed By: #### H EMOGC #### [facility] (DEFAULT) [address] [place] [address] Hemoglobin (Bld) [Mass/Vol] 14.1 g/dL Normal 11.4-15.2 [facility] Comment on above: Performed By: #### H EMOGC #### [facility] (DEFAULT) [address] [place] [address] MCV (RBC) [Entitic vol] 92.7 fL Normal 79.6-97.7 O [facility] Comment on above: Performed By: #### H EMOGC #### [facility] (DEFAULT) [address] [place] [address] Mean Cell Hgb 29.4 pg Normal 25.9-33.9 [facility] Comment on above: Performed By: #### H EMOGC #### [facility] (DEFAULT) [address] [place] [address] Mean Cell Hgb Conc 31.8 g/dL Normal 31.4-35.9 [facility] Comment on above: Performed By: #### H EMOGC #### [facility] (DEFAULT) [address] [place] [address] Platelet mean volume (Bld) [Entitic vol] 11.5 fL Normal 8.5-12.2 [facility] Comment on above: Performed By: #### H EMOGC #### [facility] (DEFAULT) [address] [place] [address] Platelets (Bld) [#/Vol] 226 10*3/uL Normal 150-393 [facility] Comment on above: Performed By: #### H EMOGC #### [facility] (DEFAULT) [address] [place] [address] RBC (Bld) [#/Vol] 4.79 10*6/uL Normal 3.91-5.04 [facility] Comment on above: Performed By: #### H [facility] #### [facility] (DEFAULT) [address] [place] [address] RBC Distribution 13.5 % Normal 10.8-14.9 [facility] Comment on above: Performed By: #### H [facility] #### [facility] (DEFAULT) [address] [place] [address] WBC (Bld) [#/Vol] 12.37 10*3/uL High 3.99-11.19 [facility] Comment on above: Performed By: #### H [facility] #### [facility] (DEFAULT) [address] [place] [address] CHEM 7 (LYTES,BUN,CREA,GLUC) on 08-09-2024 Anion gap [Moles/Vol] 14 mmol/L 7 - 17 mmol/L [facility] Chloride [Moles/Vol] 103 mmol/L 98 - 10 8 mmol/L [facility] CO2 [Moles/Vol] 26 mmol/L 21 - 31 mmol/L [facility] Creatinine [Mass/Vol] 1.35 mg/dL High 0.50 - 1.20 mg/dL [facility] eGFR, CKD-EPI, Female 40 Low - PINF [facility] Glucose [Mass/Vol] 182 mg/dL High 70 - 179 mg/dL [facility] Interpretation and review of laboratory results Abnormal [facility] Osmolality Calc [Osmolality] 305 [facility] Potassium [Moles/Vol] 4.9 mmol/L 3.5 - 5.0 mmol/L [facility] Sodium [Moles/Vol] 138 mmol/L 135 - 145 mmol/L [facility] Urea nitrogen [Mass/Vol] 38 mg/dL High 7 - 25 mg/dL [facility] Urea nitrogen/Creatinine [Mass ratio] 28 mg/mg [facility] Anion gap [Moles/Vol] 14 mmol/L Normal 7-17 [facility] Comment on above: Performed By: #### H [facility] #### [facility] (DEFAULT) [address] [place] [address] Chloride [Moles/Vol] 103 mmol/L Normal 98-108 [facility] Comment on above: Performed By: #### H EMO #### [facility] (DEFAULT) [address] [place] [address] CO2 [Moles/Vol] 26 mmol/L Normal 21-31 [facility] Comment on above: Performed By: #### H [facility] #### [facility] (DEFAULT) [address] [place] [address] Creatinine [Mass/Vol] 1.35 mg/dL High 0.50-1.20 [facility] Comment on above: Performed By: #### H [facility] #### [facility] (DEFAULT) [address] [place] [address] GFR/1.73 sq M.predicted among non-blacks MDRD (S/P/Bld) [Vol rate/Area] 40 mL/min/{1.73_m2} Low >=60 [facility] Comment on above: Result Comment: Repo rted eGFR is based on the CKD-EPI 2020 equation using creatinine, age, and sex. Performed By: #### H [facility] #### [facility] (DEFAULT) [address] [place] [address] Glucose [Mass/Vol] 182 mg/dL High Nonfastin -179 mg/dL; Fastin-99 [facility] Comment on above: Performed By: #### H EMOGC #### [facility] (DEFAULT) [address] [place] [address] Osmolality [Osmolality] 305 mosm/kg Normal 278-305 [facility] Comment on above: Performed By: #### H EMOGC #### [facility] (DEFAULT) [address] [place] [address] Potassium [Moles/Vol] 4.9 mmol/L Normal 3.5-5.0 [facility] Comment on above: Performed By: #### H EMOGC #### [facility] (DEFAULT) [address] [place] [address] Sodium [Moles/Vol] 138 mmol/L Normal 135-145 [facility] Comment on above: Performed By: #### H EMOGC #### [facility] (DEFAULT) [address] [place] [address] Urea nitrogen [Mass/Vol] 38 mg/dL High 7-25 [facility] Comment on above: Performed By: #### H EMOGC #### [facility] (DEFAULT) [address] [place] [address] Urea nitrogen/Creatinine [Mass ratio] 28 mg/mg Normal [facility] Comment on above: Performed By: #### H EMOGC #### [facility] (DEFAULT) [address] [place] [address] EXTRA MICROon 08-09-2024 [facility] GLUCOSE POCon 08-09-2024 Glucose [Mass/Vol] 186 mg/dL High 70 - 179 mg/dL [facility] Interpretation and review of laboratory results Abnormal [facility] POC Sample Type CAPBL [facility] Glucose [Mass/Vol] 255 mg/dL High 70 - 179 mg/dL [facility] Interpretation and review of laboratory results Abnormal [facility] POC Sample Type CAPBL [facility] Glucose [Mass/Vol] 235 mg/dL High 70 - 179 mg/dL [facility] Interpretation and review of laboratory results Abnormal [facility] POC Sample Type [facility] Glucose [Mass/Vol] 167 mg/dL 70 - 179 mg/dL [facility] POC Sample Type CAPBL [facility] INTERVENTIONAL UPPER ENDOSCO PYon 08-09-2024 Body surface area Derived from formula 1.9 m2 [facility] LAB, [facility] Radiology Study observation (narrative) [facility] MAGNESIUMon 08-09-2024 Interpretation and review of laboratory results Normal [facility] Magnesium [Mass/Vol] 1.8 mg/dL 1.6 - 2 .6 mg/dL [facility] Magnesium [Mass/Vol] 1.8 mg/dL Normal 1.6-2.6 [facility] Comment on above: Performed By: #### H EMO #### [facility] (DEFAULT) [address] [place] [address] No Panel Informationon 08-09 [facility] PT,INR,PTTon 08-09-2024 aPTT Coag (PPP) [Time] 38.4 s High [facility] INR Coag (Bld) [Relative time] 1 {INR} 0.9 - 1.1 [facility] Interpretation and review of laboratory results Abnormal [facility] PT Coag (PPP) [Time] 13 s [facility] aPTT Coag (Bld) [Time] 38.4 s High 24.0-34.3 [facility] Comment on above: Performed By: #### B LDCULT #### [facility] (DEFAULT) [address] [place] [address] INR Coag (PPP) [Relative time] 1.0 {INR} Normal 0.9-1.1 [facility] Comment on above: Performed By: #### B LDCULT #### [facility] (DEFAULT) [address] [place] [address] PT Coag (PPP) [Time] 13.0 s Normal 11.9-14.2 [facility] Comment on above: Performed By: #### B LDCULT #### [facility] (DEFAULT) [address] [address] SURG PATH REQUESTon 08-10-19 Case Report [facility] Comment on above: Result Comment: Surg ical Pathology Report Case: [id number] Authorizing Provider: Judson Keith DO Collected: 08/09/2024 10:07 AM Ordering Location: [facility] Received: 08/09/2024 12:13 PM Pathologist: Renae Glez MD Specimen: STOMACH, gastric, r/o HP Performed By: #### S URGP #### [facility] (DEFAULT) [address] [place] [address] Clinical History R/O HP. Associated Diagnosis: None. Medical History: No medical history provided. [facility] Comment on above: Performed By: #### S URGP #### [facility] (DEFAULT) [address] [address] Gross Description [facility] Comment on above: Result Comment: The specimen is received in one properly labeled container with the patient's name and accession number. A. The specimen is designated "gastric, r/o hp" and consists of five fragments of jackson-pink soft tissue, from 0.2 up to 0.6 cm in greatest dimension. TE 1 Lab Use Only: JobID [id number] Grosser for this case was: Sunshine Hidalgo Performed By: #### S URGP #### [facility] (DEFAULT) [address] [address] Microscopic Description A microscopic examination was performed. [facility] Comment on above: Performed By: #### S URGP #### [facility] (DEFAULT) [address] [address] Pathologic Diagnosis [facility] Comment on above: Result Comment: Anjleica echols, biopsy: Focal erosion No Helicobacter pylori identified at 1005 EDT Performed By: #### S URGP #### [facility] (DEFAULT) [address] [place] [address] Professional Interpretation Performed at: Normal [facility] Comment on above: Result Comment: [facility] For Immediate Release to Patient's MyChart? Yes [address] [place], [place] [address] [place], [place] [address] Performed By: #### S URGP #### [facility] (DEFAULT) [address] [place] [address] CBC,PLATELETSon 08-08-2024 Erythrocyte distribution width (RBC) [Ratio] 13.6 % 10.8 - 14.9 % [facility] Hematocrit (Bld) [Volume fraction] 45.7 % High 34.9 - 44.3 % [facility] Hemoglobin (Bld) [Mass/Vol] 14.4 g/dL 11.4 - 15.2 g/dL [facility] Interpretation and review of laboratory results Abnormal [facility] MCH (RBC) [Entitic mass] 29.4 pg 25.9 - 33.9 pg [facility] MCHC (RBC) [Mass/Vol] 31.5 g/dL 31.4 - 35.9 g/dL [facility] MCV (RBC) [Entitic vol] 93.3 fL 79.6 - 97.7 fL [facility] Platelet mean volume (Bld) [Entitic vol] 10.9 fL 8.5 - 12.2 fL [facility] Platelets (Bld) [#/Vol] 212 10*3/uL 150 - 393 K/uL [facility] RBC (Bld) [#/Vol] 4.9 10*6/uL [facility] WBC (Bld) [#/Vol] 10.39 10*3/uL 3.99 - 11.19 K/uL [facility] Hematocrit (Bld) [Volume fraction] 45.7 % High 34.9-44.3 [facility] Comment on above: Performed By: #### H [facility] #### [facility] (DEFAULT) [address] [place] [address] Hemoglobin (Bld) [Mass/Vol] 14.4 g/dL Normal 11.4-15.2 [facility] Comment on above: Performed By: #### H EMOGC #### [facility] (DEFAULT) [address] [place] [address] MCV (RBC) [Entitic vol] 93.3 fL Normal 79.6-97.7 O [facility] Comment on above: Performed By: #### H EMOGC #### [facility] (DEFAULT) [address] [address] Mean Cell Hgb 29.4 pg Normal 25.9-33.9 [facility] Comment on above: Performed By: #### H EMOGC #### [facility] (DEFAULT) [address] [address] Mean Cell Hgb Conc 31.5 g/dL Normal 31.4-35.9 [facility] Comment on above: Performed By: #### H EMOGC #### [facility] (DEFAULT) [address] [address] Platelet mean volume (Bld) [Entitic vol] 10.9 fL Normal 8.5-12.2 [facility] Comment on above: Performed By: #### H EMOGC #### [facility] (DEFAULT) [address] [address] Platelets (Bld) [#/Vol] 212 10*3/uL Normal 150-393 [facility] Comment on above: Performed By: #### H EMOGC #### [facility] (DEFAULT) [address] [address] RBC (Bld) [#/Vol] 4.90 10*6/uL Normal 3.91-5.04 [facility] Comment on above: Performed By: #### H EMOGC #### [facility] (DEFAULT) [address] [place] [address] RBC Distribution 13.6 % Normal 10.8-14.9 [facility] Comment on above: Performed By: #### H [facility] #### [facility] (DEFAULT) [address] [place] [address] WBC (Bld) [#/Vol] 10.39 10*3/uL Normal 3.99-11.19 [facility] Comment on above: Performed By: #### H [facility] #### [facility] (DEFAULT) [address] [place] [address] CHEM 7 (LYTES,BUN,CREA,GLUC) on 08-08-2024 Anion gap [Moles/Vol] 15 mmol/L 7 - 17 mmol/L [facility] Chloride [Moles/Vol] 104 mmol/L 98 - 10 8 mmol/L [facility] CO2 [Moles/Vol] 25 mmol/L 21 - 31 mmol/L [facility] Creatinine [Mass/Vol] 1.15 mg/dL 0.50 - 1.20 mg/dL [facility] eGFR, CKD-EPI, Female 48 Low - PINF [facility] Glucose [Mass/Vol] 111 mg/dL 70 - 179 mg/dL [facility] Interpretation and review of laboratory results Abnormal [facility] Osmolality Calc [Osmolality] 302 [facility] Potassium [Moles/Vol] 4.3 mmol/L 3.5 - 5.0 mmol/L [facility] Sodium [Moles/Vol] 140 mmol/L 135 - 145 mmol/L [facility] Urea nitrogen [Mass/Vol] 35 mg/dL High 7 - 25 mg/dL [facility] Urea nitrogen/Creatinine [Mass ratio] 30 mg/mg [facility] Anion gap [Moles/Vol] 15 mmol/L Normal 7-17 [facility] Comment on above: Performed By: #### M WENDY, CHM7 ####[facility] (DEFAULT)[address] [place] [address] Chloride [Moles/Vol] 104 mmol/L Normal 98-108 [facility] Comment on above: Performed By: #### CAMERON PALACIOS ####[facility] (DEFAULT)[address] [facility] [place] [address] CO2 [Moles/Vol] 25 mmol/L Normal 21-31 [facility] Comment on above: Performed By: #### HEYDI PALACIOS7 ####[facility] (DEFAULT)[address] [facility] [place] [address] Creatinine [Mass/Vol] 1.15 mg/dL Normal 0.50-1.20 [facility] Comment on above: Performed By: #### CAMERON PALACIOS ####[facility] (DEFAULT)[address] [place] [address] GFR/1.73 sq M.predicted among non-blacks MDRD (S/P/Bld) [Vol rate/Area] 48 mL/min/{1.73_m2} Low >=60 [facility] Comment on above: Result Comment: Repo rted eGFR is based on the CKD-EPI 2020 equation using creatinine, age, and sex. Performed By: #### CAMERON PALACIOS ####[facility] (DEFAULT)[address] [place] [address] Glucose [Mass/Vol] 111 mg/dL Normal Nonfastin -179 mg/dL; Fastin-99 [facility] Comment on above: Performed By: #### CAMERON PALACIOS ####[facility] (DEFAULT)[address] [place], [place] [address], [place] [address] Osmolality [Osmolality] 302 mosm/kg Normal 278-305 [facility] Comment on above: Performed By: #### CAMERON PALACIOS ####[facility] (DEFAULT)[address] [facility] [place] [address] Potassium [Moles/Vol] 4.3 mmol/L Normal 3.5-5.0 [facility] Comment on above: Performed By: #### M WENDY CHM7 ####[facility] (DEFAULT)[address] [place] [address] Sodium [Moles/Vol] 140 mmol/L Normal 135-145 [facility] Comment on above: Performed By: #### M WENDY CHM7 ####[facility] (DEFAULT)[address] [facility] [place] [address] Urea nitrogen [Mass/Vol] 35 mg/dL High 7-25 [facility] Comment on above: Performed By: #### M WENDY CHM7 ####[facility] (DEFAULT)[address] [place] [address] Urea nitrogen/Creatinine [Mass ratio] 30 mg/mg Normal [facility] Comment on above: Performed By: #### Jaiden NGUYEN CHM7 ####[facility] (DEFAULT)[address] [facility] [place] [address] CT HEAD WITHOUT CONTRASTon 0 08-08-2024 CT [...] have reviewed and approved this report. Normal [facility] CT Head WO contraston 2024 RADIOLOGY RADIOLOGY [facility] (narrative) [facility] GLUCOSE POCon 08-08-2024 Glucose [Mass/Vol] 150 mg/dL 70 - 179 mg/dL [facility] POC Sample Type [facility] Glucose [Mass/Vol] 148 mg/dL 70 - 179 mg/dL [facility] POC Sample Type CAPBL [facility] Glucose [Mass/Vol] 192 mg/dL High 70 - 179 mg/dL [facility] Interpretation and review of laboratory results Abnormal [facility] POC Sample Type [facility] Glucose [Mass/Vol] 198 mg/dL High 70 - 179 mg/dL [facility] Interpretation and review of laboratory results Abnormal [facility] POC Sample Type CAPBL [facility] Glucose [Mass/Vol] 186 mg/dL High 70 - 179 mg/dL [facility] Interpretation and review of laboratory results Abnormal [facility] POC Sample Type CAPBL [facility] MAGNESIUMon 08-08-2024 Interpretation and review of laboratory results Normal [facility] Magnesium [Mass/Vol] 1.7 mg/dL 1.6 - 2 .6 mg/dL [facility] Magnesium [Mass/Vol] 1.7 mg/dL Normal 1.6-2.6 [facility] Comment on above: Performed By: #### Jaiden NGUYEN [facility] ####[facility] (DEFAULT)[address] [place] [address] No Panel Informationon 08-08 [facility] URINALYSIS REFLEX TO CULTURE PERFORMABLEOrdered By: Danya Yates on 08-08-2024 Appearance (U) Cloudy Abnormal Clear [facility] Bacteria LM Ql (Urine sed) PRESENT Abnormal ABSENT [facility] Color (U) Yellow Yellow [facility] Epithelial cells.squamous LM Ql (Urine sed) 0-2/hpf 0-2/hpf, 3-5/hpf = 1+ [facility] Glucose Test strip (U) [Mass/Vol] Negative Negative [facility] Interpretation and review of laboratory results Abnormal [facility] Ketones (U) [Mass/Vol] Trace Abnormal Negative [facility] Leukocyte esterase Test strip Ql (U) Large Abnormal Negative [facility] Nitrite Ql (U) Positive Abnormal Negative [facility] pH (U) 7.0 [pH] 5.0 - 7.0 [facility] Protein (U) [Mass/Vol] Trace Abnormal Negative [facility] RBC (U) [#/Vol] Trace Abnormal Negative [facility] RBC LM.HPF (Urine sed) [#/Area] 6-10 Abnormal [facility] Specific gravity (U) [Rel density] 1.023 1.001 - 1.035 [facility] Urobilinogen (U) [Mass/Vol] 1.0 E.U./dL 0.2 E.U/dL, 1.0 E.U/dL [facility] WBC LM.HPF (Urine sed) [#/Area] /[HPF] Abnormal [facility] URINALYSIS REFLEX TO CULTURE PERFORMABLEon 08-08-2024 Appearance (U) Cloudy Abnormal Clear [facility] Comment on above: Order Comment: For i ndwelling catheters, specimen collection is acceptable on catheter day 1 and 2 only. ? Performed By: #### T YPEC #### [facility] (DEFAULT) [address] [place] [address] Bacteria PRESENT Abnormal ABSENT [facility] Comment on above: Order Comment: For i ndwelling catheters, specimen collection is acceptable on catheter day 1 and 2 only. ? Performed By: #### T YPEC #### [facility] (DEFAULT) [address] [place] [address] Blood Urine Trace Abnormal Negative [facility] Comment on above: Order Comment: For i ndwelling catheters, specimen collection is acceptable on catheter day 1 and 2 only. ? Performed By: #### T YPEC #### [facility] (DEFAULT) [address] [place] [address] Color (U) Yellow Normal Yellow [facility] Comment on above: Order Comment: For i ndwelling catheters, specimen collection is acceptable on catheter day 1 and 2 only. ? Performed By: #### T YPEC #### [facility] (DEFAULT) [address] [place] [address] Glucose Ql (U) Negative Normal Negative [facility] Comment on above: Order Comment: For i ndwelling catheters, specimen collection is acceptable on catheter day 1 and 2 only. ? Performed By: #### T YPEC #### [facility] (DEFAULT) [address] [place] [address] Ketones Ql (U) Trace Abnormal Negative [facility] Comment on above: Order Comment: For i ndwelling catheters, specimen collection is acceptable on catheter day 1 and 2 only. ? Performed By: #### T YPEC #### [facility] (DEFAULT) [address] [place] [address] Leukocyte esterase Test strip Ql (U) Large Abnormal Negative [facility] Comment on above: Order Comment: For i ndwelling catheters, specimen collection is acceptable on catheter day 1 and 2 only. ? Performed By: #### T YPEC #### [facility] (DEFAULT) [address] [place] [address] Nitrites Urine Positive Abnormal Negative [facility] Comment on above: Order Comment: For i ndwelling catheters, specimen collection is acceptable on catheter day 1 and 2 only. ? Performed By: #### T YPEC #### [facility] (DEFAULT) [address] [place] [address] pH (U) 7.0 [pH] Normal 5.0-7.0 [facility] Comment on above: Order Comment: For i ndwelling catheters, specimen collection is acceptable on catheter day 1 and 2 only. ? Performed By: #### T YPEC #### [facility] (DEFAULT) [address] [place] [address] Protein Urine Trace Abnormal Negative [facility] Comment on above: Order Comment: For i ndwelling catheters, specimen collection is acceptable on catheter day 1 and 2 only. ? Performed By: #### T YPEC #### [facility] (DEFAULT) [address] [place] [address] RBC Urine 6-10 Abnormal 0-2 [facility] Comment on above: Order Comment: For i ndwelling catheters, specimen collection is acceptable on catheter day 1 and 2 only. ? Performed By: #### T YPEC #### [facility] (DEFAULT) [address] [place] [address] Specific [place] Urine 1.023 Normal 1.001-1.035 O [facility] Comment on above: Order Comment: For i ndwelling catheters, specimen collection is acceptable on catheter day 1 and 2 only. ? Performed By: #### T YPEC #### [facility] (DEFAULT) [address] [place] [address] Squamous/Epithelial Cells, Urine 0-2/hpf Normal 0-2/hpf, 3-5/hpf = 1+ [facility] Comment on above: Order Comment: For i ndwelling catheters, specimen collection is acceptable on catheter day 1 and 2 only. ? Performed By: #### T YPEC #### [facility] (DEFAULT) [address] [address] Urobilinogen Urine 1.0 E.U./dL Normal 0.2 E.U/d L, 1.0 E.U/dL [facility] Comment on above: Order Comment: For i ndwelling catheters, specimen collection is acceptable on catheter day 1 and 2 only. ? Performed By: #### T YPEC #### [facility] (DEFAULT) [address] [address] WBC LM.HPF (Urine sed) [#/Area] /[HPF] Abnormal 0 - 5 [facility] Comment on above: Order Comment: For i ndwelling catheters, specimen collection is acceptable on catheter day 1 and 2 only. ? Performed By: #### T YPEC #### [facility] (DEFAULT) [address] [address] URINE CULTUREon 08-08-2024 Amikacin [Susceptibility] <= Invalid Interpretation Code [facility] Comment on above: Order Comment: [...] Performed By: #### T YPEC #### [facility] (DEFAULT) [address] [address] Ampicillin [Susceptibility] >=32 Resistant [facility] Comment on above: Order Comment: [...] Performed By: #### T YPEC #### [facility] (DEFAULT) [address] [address] Ampicillin+Sulbactam [Susceptibility] >=32 Resistant [facility] Comment on above: Order Comment: [...] ? Performed By: #### T YPEC #### [facility] (DEFAULT) [address] [address] ceFAZolin [Susceptibility] >= Resistant [facility] Comment on above: Order Comment: [...] cefdinir. Performed By: #### T YPEC #### [facility] (DEFAULT) [address] [address] Cefepime [Susceptibility] <= Invalid Interpretation Code [facility] Comment on above: Order Comment: [...] ? Performed By: #### T YPEC #### [facility] (DEFAULT) [address] [address] cefTRIAXone [Susceptibility] <= Invalid Interpretation Code [facility] Comment on above: Order Comment: [...] Performed By: #### T YPEC #### [facility] (DEFAULT) [address] [address] Ciprofloxacin [Susceptibility] >= Resistant [facility] Comment on above: Order Comment: [...] ? Performed By: #### T YPEC #### [facility] (DEFAULT) [address] [address] Ertapenem [Susceptibility] <= Invalid Interpretation Code [facility] Comment on above: Order Comment: [...] Performed By: #### T YPEC #### [facility] (DEFAULT) [address] [address] Gentamicin [Susceptibility] <= Invalid Interpretation Code [facility] Comment on above: Order Comment: [...] ? Performed By: #### T YPEC #### [facility] (DEFAULT) [address] [address] levoFLOXacin [Susceptibility] >= Resistant [facility] Comment on above: Order Comment: [...] ? Performed By: #### T YPEC #### [facility] (DEFAULT) [address] [place] [address] Nitrofurantoin [Susceptibility] 128 ug/mL Resistant [facility] Comment on above: Order Comment: [...] ? Performed By: #### T YPEC #### [facility] (DEFAULT) [address] [address] Piperacillin+Tazobactam [Susceptibility] 8 ug/mL Invalid Interpretation Code [facility] Comment on above: Order Comment: [...] Performed By: #### T YPEC #### [facility] (DEFAULT) [address] [address] Trimethoprim+Sulfametho xazole [Susceptibility] <= Invalid Interpretation Code [facility] Comment on above: Order Comment: [...] ? Performed By: #### T YPEC #### [facility] (DEFAULT) [address] [address] CBC,PLATELETSon 08-07-2024 Erythrocyte distribution width (RBC) [Ratio] 13.9 % 10.8 - 14.9 % [facility] Hematocrit (Bld) [Volume fraction] 43.1 % 34.9 - 44.3 % [facility] Hemoglobin (Bld) [Mass/Vol] 13.7 g/dL 11.4 - 15.2 g/dL [facility] Interpretation and review of laboratory results Abnormal [facility] MCH (RBC) [Entitic mass] 29.6 pg 25.9 - 33.9 pg [facility] [facility] MCHC (RBC) [Mass/Vol] 31.8 g/dL 31.4 - 35.9 g/dL [facility] MCV (RBC) [Entitic vol] 93.1 fL 79.6 - 97.7 fL [facility] Platelet mean volume (Bld) [Entitic vol] 11.1 fL 8.5 - 12.2 fL [facility] Platelets (Bld) [#/Vol] 214 10*3/uL 150 - 393 K/uL [facility] RBC (Bld) [#/Vol] 4.63 10*6/uL [facility] WBC (Bld) [#/Vol] 11.3 10*3/uL High 3.99 - 11.19 K/uL [facility] CHEM 7 (LYTES,BUN,CREA,GLUC) on 08-07-2024 Anion gap [Moles/Vol] 13 mmol/L 7 - 17 mmol/L [facility] Chloride [Moles/Vol] 105 mmol/L 98 - 10 8 mmol/L [facility] CO2 [Moles/Vol] 28 mmol/L 21 - 31 mmol/L [facility] Creatinine [Mass/Vol] 1.19 mg/dL 0.50 - 1.20 mg/dL [facility] eGFR, CKD-EPI, Female 47 Low - PINF [facility] Glucose [Mass/Vol] 90 mg/dL 70 - 179 mg/dL [facility] Interpretation and review of laboratory results Abnormal [facility] Osmolality Calc [Osmolality] 304 [facility] Potassium [Moles/Vol] 4.2 mmol/L 3.5 - 5.0 mmol/L [facility] Sodium [Moles/Vol] 142 mmol/L 135 - 145 mmol/L [facility] Urea nitrogen [Mass/Vol] 34 mg/dL High 7 - 25 mg/dL [facility] Urea nitrogen/Creatinine [Mass ratio] 29 mg/mg [facility] GLUCOSE POCon 08-07-2024 Glucose [Mass/Vol] 185 mg/dL High 70 - 179 mg/dL [facility] Interpretation and review of laboratory results Abnormal [facility] POC Sample Type CAPBL [facility] Glucose [Mass/Vol] 106 mg/dL 70 - 179 mg/dL [facility] POC Sample Type [facility]BL [facility] Glucose [Mass/Vol] 104 mg/dL 70 - 179 mg/dL [facility] POC Sample Type [facility] MAGNESIUMon 08-07-2024 Interpretation and review of laboratory results Normal [facility] Magnesium [Mass/Vol] 1.8 mg/dL 1.6 - 2 .6 mg/dL [facility] No Panel Informationon 08-07 [facility] CBC,PLATELETSon 08-06-2024 Hematocrit (Bld) [Volume fraction] 43.1 % Normal 34.9-44.3 [facility] Comment on above: Performed By: #### X M #### [facility] (DEFAULT) [address] [place] [address] Hemoglobin (Bld) [Mass/Vol] 13.7 g/dL Normal 11.4-15.2 [facility] Comment on above: Performed By: #### X M #### [facility] (DEFAULT) [address] [place] [address] MCV (RBC) [Entitic vol] 93.1 fL Normal 79.6-97.7 O [facility] Comment on above: Performed By: #### X M #### [facility] (DEFAULT) [address] [address] Mean Cell Hgb 29.6 pg Normal 25.9-33.9 [facility] Comment on above: Performed By: #### X M #### [facility] (DEFAULT) [address] [address] Mean Cell Hgb Conc 31.8 g/dL Normal 31.4-35.9 [facility] Comment on above: Performed By: #### X M #### [facility] (DEFAULT) [address] [address] Platelet mean volume (Bld) [Entitic vol] 11.1 fL Normal 8.5-12.2 [facility] Comment on above: Performed By: #### X M #### [facility] (DEFAULT) [address] [address] Platelets (Bld) [#/Vol] 214 10*3/uL Normal 150-393 [facility] Comment on above: Performed By: #### X M #### [facility] (DEFAULT) [address] [address] RBC (Bld) [#/Vol] 4.63 10*6/uL Normal 3.91-5.04 [facility] Comment on above: Performed By: #### X M #### [facility] (DEFAULT) [address] [address] RBC Distribution 13.9 % Normal 10.8-14.9 [facility] Comment on above: Performed By: #### X M #### [facility] (DEFAULT) [address] [address] WBC (Bld) [#/Vol] 11.30 10*3/uL High 3.99-11.19 [facility] Comment on above: Performed By: #### X M #### [facility] (DEFAULT) [address] [place] [address] Erythrocyte distribution width (RBC) [Ratio] 13.9 % 10.8 - 14.9 % [facility] Hematocrit (Bld) [Volume fraction] 44 % 34.9 - 44.3 % [facility] Hemoglobin (Bld) [Mass/Vol] 13.9 g/dL 11.4 - 15.2 g/dL [facility] Interpretation and review of laboratory results Abnormal [facility] MCH (RBC) [Entitic mass] 29.1 pg 25.9 - 33.9 pg [facility] MCHC (RBC) [Mass/Vol] 31.6 g/dL 31.4 - 35.9 g/dL [facility] MCV (RBC) [Entitic vol] 92.2 fL 79.6 - 97.7 fL [facility] Platelet mean volume (Bld) [Entitic vol] 10.7 fL 8.5 - 12.2 fL [facility] Platelets (Bld) [#/Vol] 216 10*3/uL 150 - 393 K/uL [facility] RBC (Bld) [#/Vol] 4.77 10*6/uL [facility] WBC (Bld) [#/Vol] 12.14 10*3/uL High 3.99 - 11.19 K/uL [facility] CHEM 7 (LYTES,BUN,CREA,GLUC) on 08-06-2024 Anion gap [Moles/Vol] 13 mmol/L Normal 7-17 [facility] Comment on above: Performed By: #### M CAMREON NGUYEN ####[facility] (DEFAULT)[address] [place] [address] Chloride [Moles/Vol] 105 mmol/L Normal 98-108 [facility] Comment on above: Performed By: #### M CAMERON NGUYEN ####[facility] (DEFAULT)[address] [place] [address] CO2 [Moles/Vol] 28 mmol/L Normal 21-31 [facility] Comment on above: Performed By: #### HEYDI PALACIOS7 ####[facility] (DEFAULT)[address] [place] [address] Creatinine [Mass/Vol] 1.19 mg/dL Normal 0.50-1.20 [facility] Comment on above: Performed By: #### HEYDI PALACIOS7 ####[facility] (DEFAULT)[address] [facility] [place] [address] GFR/1.73 sq M.predicted among non-blacks MDRD (S/P/Bld) [Vol rate/Area] 47 mL/min/{1.73_m2} Low >=60 [facility] Comment on above: Result Comment: Repo rted eGFR is based on the CKD-EPI 2020 equation using creatinine, age, and sex. Performed By: #### HEYDI PALACIOS7 ####[facility] (DEFAULT)[address] [facility] [place] [address] Glucose [Mass/Vol] 90 mg/dL Normal Nonfastin -179 mg/dL; Fastin-99 [facility] Comment on above: Performed By: #### CAMERON PALACIOS ####[facility] (DEFAULT)[address] [place], [place] [address], [place] [address] Osmolality [Osmolality] 304 mosm/kg Normal 278-305 [facility] Comment on above: Performed By: #### HEYDI PALACIOS7 ####[facility] (DEFAULT)[address] [facility] [place] [address] Potassium [Moles/Vol] 4.2 mmol/L Normal 3.5-5.0 [facility] Comment on above: Performed By: #### HEYDI PALACIOS7 ####[facility] (DEFAULT)[address] [facility] [place] [address] Sodium [Moles/Vol] 142 mmol/L Normal 135-145 [facility] Comment on above: Performed By: #### Jaiden NGUYEN CHM7 ####[facility] (DEFAULT)[address] [place] [address] Urea nitrogen [Mass/Vol] 34 mg/dL High 7-25 [facility] Comment on above: Performed By: #### Jaiden NGUYEN CHM7 ####[facility] (DEFAULT)[address] [place] [address] Urea nitrogen/Creatinine [Mass ratio] 29 mg/mg Normal [facility] Comment on above: Performed By: #### Jaiden NGUYEN CHM7 ####[facility] (DEFAULT)[address] [place] [address] Anion gap [Moles/Vol] 14 mmol/L 7 - 17 mmol/L [facility] Chloride [Moles/Vol] 107 mmol/L 98 - 10 8 mmol/L [facility] CO2 [Moles/Vol] 27 mmol/L 21 - 31 mmol/L [facility] Creatinine [Mass/Vol] 1.19 mg/dL 0.50 - 1.20 mg/dL [facility] eGFR, CKD-EPI, Female 47 Low - PINF [facility] Glucose [Mass/Vol] 88 mg/dL 70 - 179 mg/dL [facility] Interpretation and review of laboratory results Abnormal [facility] Osmolality Calc [Osmolality] 307 High [facility] Potassium [Moles/Vol] 3.9 mmol/L 3.5 - 5.0 mmol/L [facility] Sodium [Moles/Vol] 144 mmol/L 135 - 145 mmol/L [facility] Urea nitrogen [Mass/Vol] 34 mg/dL High 7 - 25 mg/dL [facility] Urea nitrogen/Creatinine [Mass ratio] 29 mg/mg [facility] GLUCOSE POCon 08-06-2024 Glucose [Mass/Vol] 166 mg/dL 70 - 179 mg/dL [facility] Glucose [Mass/Vol] 106 mg/dL 70 - 179 mg/dL [facility] Glucose [Mass/Vol] 100 mg/dL 70 - 179 mg/dL [facility] POC Sample Type VENO [facility] Glucose [Mass/Vol] 219 mg/dL High 70 - 179 mg/dL [facility] Interpretation and review of laboratory results Abnormal [facility] Glucose [Mass/Vol] 249 mg/dL High 70 - 179 [facility] Glucose [Mass/Vol] 178 mg/dL 70 - 179 mg/dL [facility] Glucose [Mass/Vol] 194 mg/dL High 70 - 179 mg/dL [facility] Glucose [Mass/Vol] 93 mg/dL 70 - 179 mg/dL [facility] POC Sample Type VENO [facility] IONIZED CALCIUM, WHOLE BLOOD Ordered By: Zuleika Blunt on 08-06-2024 Calcium.ionized (Bld) [Moles/Vol] 4.72 mg/dL 4.60 - 5.30 mg/dL [facility] Interpretation and review of laboratory results Normal [facility] MAGNESIUMon 08-06-2024 Magnesium [Mass/Vol] 1.8 mg/dL Normal 1.6-2.6 [facility] Comment on above: Performed By: #### M M7 ####[facility] (DEFAULT)[address] [place] [address] Magnesium [Mass/Vol] 2.4 mg/dL 1.6 - 2 .6 mg/dL [facility] No Panel Informationon 08-06 POC Sample Type CAPBL [facility] Interpretation and review of laboratory results Abnormal [facility] POC Sample Type [facility]BL [facility] Interpretation and review of laboratory results Normal [facility] PHOSPHATE, INORGANICon 08-06 Phosphate [Mass/Vol] 3.2 mg/dL 2.2 - 4 .6 mg/dL [facility] RF videography Hypopharynx a nd Esophagus Views W liquid and paste contrast PO during swallowingon 08-06-2024 [facility]Y [facility] (narrative[facility] RF videography Hypopharynx a nd Esophagus Views W liquid and paste contrast PO during swallowingOrdered By: Gerry Resendez on 08-06-2024 [facility] Work Phone: SPEECH MODIFIED BARIUM SWALL OWon 08-06-2024 [facility] XR FLUORO MODIFIED BARIUM SW ALLOW WITH [...] for specific therapeutic recommendations, please see the vacuum drier operator report of the speech pathologist. Examination performed by ARCADIO Nicole, under the direct supervision of Gerry Resendez M.D., who was immediately available on site during the examination. I personally viewed and interpreted these images and I have reviewed and approved this report. Normal [facility] CBC,PLATELETSon 03-24-2025 Hematocrit (Bld) [Volume fraction] 44.0 % Normal 34.9-44.3 [facility] Comment on above: Performed By: #### B LDCULT #### [facility] (DEFAULT) [address] [place] [address] Hemoglobin (Bld) [Mass/Vol] 13.9 g/dL Normal 11.4-15.2 [facility] Comment on above: Performed By: #### B LDCULT #### [facility] (DEFAULT) [address] [place] [address] MCV (RBC) [Entitic vol] 92.2 fL Normal 79.6-97.7 [facility] Comment on above: Performed By: #### B LDCULT #### [facility] (DEFAULT) [address] [place] [address] Mean Cell Hgb 29.1 pg Normal 25.9-33.9 [facility] Comment on above: Performed By: #### B LDCULT #### [facility] (DEFAULT) [address] [place] [address] Mean Cell Hgb Conc 31.6 g/dL Normal 31.4-35.9 [facility] Comment on above: Performed By: #### B LDCULT #### [facility] (DEFAULT) [address] [place] [address] Platelet mean volume (Bld) [Entitic vol] 10.7 fL Normal 8.5-12.2 [facility] Comment on above: Performed By: #### B LDCULT #### [facility] (DEFAULT) [address] [place] [address] Platelets (Bld) [#/Vol] 216 10*3/uL Normal 150-393 [facility] Comment on above: Performed By: #### B LDCULT #### [facility] (DEFAULT) [address] [place] [address] RBC (Bld) [#/Vol] 4.77 10*6/uL Normal 3.91-5.04 [facility] Comment on above: Performed By: #### B LDCULT #### [facility] (DEFAULT) [address] [place] [address] RBC Distribution 13.9 % Normal 10.8-14.9 [facility] Comment on above: Performed By: #### B LDCULT #### [facility] (DEFAULT) [address] [place] [address] WBC (Bld) [#/Vol] 12.14 10*3/uL High 3.99-11.19 [facility] Comment on above: Performed By: #### B LDCULT #### [facility] (DEFAULT) [address] [place] [address] Erythrocyte distribution width (RBC) [Ratio] 13.9 % 10.8 - 14.9 % [facility] Hematocrit (Bld) [Volume fraction] 39.6 % 34.9 - 44.3 % [facility] Hemoglobin (Bld) [Mass/Vol] 12.6 g/dL 11.4 - 15.2 g/dL [facility] Interpretation and review of laboratory results Normal [facility] MCH (RBC) [Entitic mass] 29.3 pg 25.9 - 33.9 pg [facility] MCHC (RBC) [Mass/Vol] 31.8 g/dL 31.4 - 35.9 g/dL [facility] MCV (RBC) [Entitic vol] 92.1 fL 79.6 - 97.7 fL [facility] Platelet mean volume (Bld) [Entitic vol] 10.7 fL 8.5 - 12.2 fL [facility] Platelets (Bld) [#/Vol] 198 10*3/uL 150 - 393 K/uL [facility] RBC (Bld) [#/Vol] 4.3 10*6/uL [facility] WBC (Bld) [#/Vol] 10.61 10*3/uL 3.99 - 11.19 K/uL [facility] Hematocrit (Bld) [Volume fraction] 39.6 % Normal 34.9-44.3 [facility] Comment on above: Performed By: #### H EMOGC ####[facility] (DEFAULT)[address] [place] [address] Hemoglobin (Bld) [Mass/Vol] 12.6 g/dL Normal 11.4-15.2 [facility] Comment on above: Performed By: #### H EMOGC ####[facility] (DEFAULT)[address] [facility] [place] [address] MCV (RBC) [Entitic vol] 92.1 fL Normal 79.6-97.7 [facility] Comment on above: Performed By: #### H EMOGC ####[facility] (DEFAULT)[address] [facility] [place] [address] Mean Cell Hgb 29.3 pg Normal 25.9-33.9 [facility] Comment on above: Performed By: #### H EMOGC ####[facility] (DEFAULT)[address] [facility] [place] [address] Mean Cell Hgb Conc 31.8 g/dL Normal 31.4-35.9 [facility] Comment on above: Performed By: #### H EMOGC ####[facility] (DEFAULT)[address] [place] [address] Platelet mean volume (Bld) [Entitic vol] 10.7 fL Normal 8.5-12.2 [facility] Comment on above: Performed By: #### H EMOGC ####[facility] (DEFAULT)[address] [facility] [place] [address] Platelets (Bld) [#/Vol] 198 10*3/uL Normal 150-393 [facility] Comment on above: Performed By: #### H EMOGC ####[facility] (DEFAULT)[address] [place] [address] RBC (Bld) [#/Vol] 4.30 10*6/uL Normal 3.91-5.04 [facility] Comment on above: Performed By: #### H EMOGC ####[facility] (DEFAULT)[address] [place] [address] RBC Distribution 13.9 % Normal 10.8-14.9 [facility] Comment on above: Performed By: #### H EMOGC ####[facility] (DEFAULT)[address] [place] [address] WBC (Bld) [#/Vol] 10.61 10*3/uL Normal 3.99-11.19 [facility] Comment on above: Performed By: #### H EMO ####[facility] (DEFAULT)[address] [place] [address] CHEM 7 (LYTES,BUN,CREA,GLUC) on 08-05-2024 Anion gap [Moles/Vol] 14 mmol/L Normal 7-17 [facility] Comment on above: Performed By: #### S URGP #### [facility] (DEFAULT) [address] [place] [address] Chloride [Moles/Vol] 107 mmol/L Normal 98-108 [facility] Comment on above: Performed By: #### S URGP #### [facility] (DEFAULT) [address] [place] [address] CO2 [Moles/Vol] 27 mmol/L Normal 21-31 [facility] Comment on above: Performed By: #### S URGP #### [facility] (DEFAULT) [address] [place] [address] Creatinine [Mass/Vol] 1.19 mg/dL Normal 0.50-1.20 [facility] Comment on above: Performed By: #### S URGP #### [facility] (DEFAULT) [address] [place] [address] GFR/1.73 sq M.predicted among non-blacks MDRD (S/P/Bld) [Vol rate/Area] 47 mL/min/{1.73_m2} Low >=60 [facility] Comment on above: Result Comment: Repo rted eGFR is based on the CKD-EPI 2020 equation using creatinine, age, and sex. Performed By: #### S URGP #### [facility] (DEFAULT) [address] [place] [address] Glucose [Mass/Vol] 88 mg/dL Normal Nonfastin -179 mg/dL; Fastin-99 [facility] Comment on above: Performed By: #### S URGP #### [facility] (DEFAULT) [address] [place] [address] Osmolality [Osmolality] 307 mosm/kg High 278-305 [facility] Comment on above: Performed By: #### S URGP #### [facility] (DEFAULT) [address] [place] [address] Potassium [Moles/Vol] 3.9 mmol/L Normal 3.5-5.0 [facility] Comment on above: Performed By: #### S URGP #### [facility] (DEFAULT) [address] [place] [address] Sodium [Moles/Vol] 144 mmol/L Normal 135-145 [facility] Comment on above: Performed By: #### S URGP #### [facility] (DEFAULT) [address] [place] [address] Urea nitrogen [Mass/Vol] 34 mg/dL High 7-25 [facility] Comment on above: Performed By: #### S URGP #### [facility] (DEFAULT) [address] [place] [address] Urea nitrogen/Creatinine [Mass ratio] 29 mg/mg Normal [facility] Comment on above: Performed By: #### S URGP #### [facility] (DEFAULT) [address] [place] [address] Anion gap [Moles/Vol] 14 mmol/L 7 - 17 mmol/L [facility] Chloride [Moles/Vol] 108 mmol/L 98 - 10 8 [facility]/L [facility] CO2 [Moles/Vol] 25 mmol/L 21 - 31 mmol/L [facility] Creatinine [Mass/Vol] 1.45 mg/dL High 0.50 - 1.20 mg/dL [facility] eGFR, CKD-EPI, Female 37 Low - PINF [facility] Glucose [Mass/Vol] 242 mg/dL High 70 - 179 mg/dL [facility] Interpretation and review of laboratory results Abnormal [facility] Osmolality Calc [Osmolality] 315 High [facility] Potassium [Moles/Vol] 3.8 mmol/L 3.5 - 5.0 mmol/L [facility] Sodium [Moles/Vol] 143 mmol/L 135 - 145 mmol/L [facility] Urea nitrogen [Mass/Vol] 35 mg/dL High 7 - 25 mg/dL [facility] Urea nitrogen/Creatinine [Mass ratio] 24 mg/mg [facility] Anion gap [Moles/Vol] 14 mmol/L Normal 7-17 [facility] Comment on above: Performed By: #### X M #### [facility] (DEFAULT) [address] [place] [address] Chloride [Moles/Vol] 108 mmol/L Normal 98-108 [facility] Comment on above: Performed By: #### X M #### [facility] (DEFAULT) [address] [place] [address] CO2 [Moles/Vol] 25 mmol/L Normal 21-31 [facility] Comment on above: Performed By: #### X M #### [facility] (DEFAULT) [address] [place] [address] Creatinine [Mass/Vol] 1.45 mg/dL High 0.50-1.20 [facility] Comment on above: Performed By: #### X M #### [facility] (DEFAULT) [address] [place] [address] GFR/1.73 sq M.predicted among non-blacks MDRD (S/P/Bld) [Vol rate/Area] 37 mL/min/{1.73_m2} Low >=60 [facility] Comment on above: Result Comment: Repo rted eGFR is based on the CKD-EPI 2020 equation using creatinine, age, and sex. Performed By: #### X M #### [facility] (DEFAULT) [address] [place] [address] Glucose [Mass/Vol] 242 mg/dL High Nonfastin -179 mg/dL; Fastin-99 [facility] Comment on above: Performed By: #### X M #### [facility] (DEFAULT) [address] [place] [address] Osmolality [Osmolality] 315 mosm/kg High 278-305 [facility] Comment on above: Performed By: #### X M #### [facility] (DEFAULT) [address] [place] [address] Potassium [Moles/Vol] 3.8 mmol/L Normal 3.5-5.0 [facility] Comment on above: Performed By: #### X M #### [facility] (DEFAULT) [address] [place] [address] Sodium [Moles/Vol] 143 mmol/L Normal 135-145 [facility] Comment on above: Performed By: #### X M #### [facility] (DEFAULT) [address] [place] [address] Urea nitrogen [Mass/Vol] 35 mg/dL High 7-25 [facility] Comment on above: Performed By: #### X M #### [facility] (DEFAULT) [address] [place] [address] Urea nitrogen/Creatinine [Mass ratio] 24 mg/mg Normal [facility] Comment on above: Performed By: #### X M #### [facility] [place] ([place]) [address] [place] [address] Cardiac echo study Procedure Ordered By: Ezequiel Figueroa on 08-05-2024 Ao ASC index 1.56 cm/m2 [facility] Work Phone: [phone] Ao peak fidel 1.23 [facility] Phone: [phone] Ao SOV index 1.56 cm/m2 [facility] Work Phone: [phone] Ao STJ index 1.36 cm/m2 [facility] Work Phone: [phone] Ao VTI 24.81 cm [facility] Work Phone: [phone] Ascending aorta 2.97 cm [facility] Work Phone: [phone] AV LVOT peak gradient 4 mmHg [facility] Work Phone: [phone] AV mean gradient 4 [facility]: [phone] AV peak gradient 6 mmHG [facility] Work Phone: [phone] AV valve area 2.72 cm2 [facility] Work Phone: [phone] AV Velocity Ratio 0.8 [facility] Work Phone: [phone] MARKUS (continuity Vmax) 2.55 cm2 [facility] Work Phone: [phone] MARKUS (continuity VTI) 2.72 cm2 [facility] Work Phone: [phone] MARKUS index (continuity Vmax) 1.34 m/s [facility] Work Phone: [phone] MARKUS index (continuity VTI) 1.43 cm2/m2 [facility] Work Phone: [phone] Avg e' pk fidel 0.09 m/s [facility] Work Phone: [phone] Body surface area Derived from formula 1.9 m2 [facility] Work Phone: [phone] BP EF 55 % [facility] Work Phone: [phone] DI (Vmax) 0.8 [facility] Work Phone: [phone] DI (VTI) 0.86 m/2 [facility] Work Phone: [phone] e' lateral pk fidel 0.0845 m/s [facility]: [phone] e' lateral pk fidel 0.08 m/s [facility] Work Phone: [phone] e' septal pk fidel 0.0953 m/s [facility] Work Phone: [phone] e' septal pk fidel 0.1 m/s [facility] Work Phone: [phone] EF SP 2CH 56 [facility] Work Phone: [phone] EF SP 4CH 51 [facility] Work Phone: [phone] EST RAP 3 mmHg [facility] Work Phone: [phone] EST RVSP 29 mmHg [facility] Work Phone: [phone] FS 31 % [facility] Work Phone: [phone] IVC ostium 1.64 cm [facility] Work Phone: [phone] IVS 1.14 cm [facility] Work Phone: [phone] LA area 4CH 29.07 cm2 [facility] Work Phone: [phone] LA ESV BP (MOD) 86 [facility] Work Phone: [phone] LA ESV BP (MOD) index 45 mL/m2 [facility] Work Phone: [phone] LA ESV SP 2CH (MOD) 81 mL [facility] Work Phone: [phone] LA ESV SP 4CH (MOD) 93 mL [facility] Work Phone: [phone] LV EDV BP 88 mL [facility] Work Phone: [phone] LV EDV SP 2CH 85 mL [facility] Work Phone: [phone] LV EDV SP 4CH 86 mL [facility] Work Phone: [phone] LV ESV BP 40 mL [facility] Work Phone: [phone] LV ESV SP 2CH 37 mL [facility] Work Phone: [phone] LV ESV SP 4CH 42 mL [facility] Work Phone: [phone] LV mass 146.48 g [facility] Work Phone: [phone] LV Mass Index 77.1 g/m2 [facility] Work Phone: [phone] LV RWT 0.56 [facility] Work Phone: [phone] LV stroke volume BP (ml) 48 mL [facility] Work Phone: [phone] LV stroke volume index BP 25.26 mL/m2 [facility] Work Phone: [phone] LVIDD 3.93 cm [facility] Work Phone: [phone] LVIDS 2.7 cm [facility] Work Phone: [phone] LVOT area 3.17 cm2 [facility] Work Phone: [phone] LVOT diameter 2.01 cm [facility] Work Phone: [phone] LVOT peak fidel 0.99 m/s [facility] Work Phone: [phone] LVOT peak VTI 21.3 cm [facility] Work Phone: [phone] LVOT stroke volume 68 cm3 [facility] Work Phone: [phone] LVOT stroke volume index 35.55 ml/m2 [facility] Work Phone: [phone] MV mean gradient 3 mmHg [facility]: [phone] MV peak gradient 6 mmHg [facility] Work Phone: [phone] MV valve area by continuity eq 2.61 cm2 [facility] Work Phone: [phone] MV VTI 25.92 cm [facility] Work Phone: [phone] MVA (continuity VTI) 2.6 cm [facility] Work Phone: [phone] [facility] AV VTI RATIO PRE STRESS 0.86 [facility] Work Phone: [phone] [facility] ECHO LV BIPLANE SYSTOLIC VOLUME INDEX 21.05 mL/m2 [facility] Work Phone: [phone] [facility] ECHO LV BP DIASTOLIC VOLUME INDEX 46.32 mL/m2 [facility] Work Phone: [phone] PV mean gradient 3 mmHg [facility] Work Phone[facility] [phone] PV peak gradient 6 mmHg [facility] Work Phone: [phone] PV PK FIDEL 1.23 m/s [facility] Work Phone: [phone] PW 1.11 cm [facility] Work Phone: [phone] RA area 4CH (MOD) 22.74 cm2 [facility] Work Phone: [phone] RA vol index 4CH (MOD) 36.32 mL/m2 [facility] Work Phone: [phone] Right atrium volume 4 chamber method of disks 69 mL [facility] Work Phone: [phone] RV Area diastolic 17.5 cm2 [facility] Work [facility]: RV Area systolic 11.9 cm2 [facility] Work Phone: [phone] RV basal diam 4.56 cm [facility] Work Phone: RV Fractional area change 32 % [facility] Work Phone: RV long diam 6.91 cm [facility] Work Phone: RV mid diam 2.91 cm [facility] Work Phone: [phone] RV S' 12.81 cm/s [facility] Work Phone: RVOT peak gradient 5 mmHg [facility] Work Phone: [phone] RVOT peak fidel 1.07 m/s [facility] Work Phone: RVOT peak VTI 20.1 cm [facility] Work Phone: Sinus 2.97 cm [facility] Work Phone: STJ 2.58 cm [facility] Work Phone: Stroke Volume 68 cm/mL [facility] Work Phone: Stroke volume index 36 [facility] Work Phone: TAPSE 2.08 cm [facility] Work Phone: TR pk grad 26 mmHg [facility] Work Phone: TR pk fidel 2.53 m/s [facility] Work Phone: [facility] Work Phone: Cardiac echo study Procedure on 08-05-2024 [facility] Radiology Study observation (narrative) [facility] ECHOCARDIOGRAMon 08-05-2024 Echocardiography ? No prior study [...] from the original result were not included. [facility] Facility [facility] Patient Information Patient Name Armand Lindsay Legal Sex Female Indication for Exam Priority: [...] Reading Role Read Date Ezequiel Figueroa, Echo [place] 08/05/2024 Left Heart Measurements LV - Systole [...] long di (more content not included)... Normal [facility] GLUCOSE POCon 08-05-2024 Glucose [Mass/Vol] 228 mg/dL High 70 - 179 mg/dL [facility] Interpretation and review of laboratory results Abnormal [facility] POC Sample Type CAPBL [facility] IONIZED CALCIUM, WHOLE BLOOD on 08-05-2024 ICA 4.72 mg/dL Normal 4.60-5.30 [facility] Comment on above: Performed By: #### S URGP #### [facility] (DEFAULT) [address] [address] ICA 4.69 mg/dL Normal 4.60-5.30 [facility] Comment on above: Performed By: #### S URGP #### [facility] (DEFAULT) [address] [address] IONIZED CALCIUM, WHOLE BLOOD Ordered By: Jairo Layton on 08-05-2024 Calcium.ionized (Bld) [Moles/Vol] 4.69 mg/dL 4.60 - 5.30 mg/dL [facility] Interpretation and review of laboratory results Normal [facility] MAGNESIUMon 08-05-2024 Magnesium [Mass/Vol] 2.4 mg/dL Normal 1.6-2.6 [facility] Comment on above: Performed By: #### S URGP #### [facility] (DEFAULT) [address] [address] Magnesium [Mass/Vol] 1.8 mg/dL 1.6 - 2 .6 mg/dL [facility] Magnesium [Mass/Vol] 1.8 mg/dL Normal 1.6-2.6 [facility] Comment on above: Performed By: #### X M #### [facility] (DEFAULT) [address] [address] No Panel Informationon 08-05 Interpretation and review of laboratory results Normal [facility] PHOSPHATE, INORGANICon 08-05 Phosphorous 3.2 mg/dL Normal 2.2-4.6 [facility] Comment on above: Performed By: #### S URGP #### [facility] (DEFAULT) [address] [place] [address] Phosphate [Mass/Vol] 2.7 mg/dL 2.2 - 4 .6 mg/dL [facility] Phosphorous 2.7 mg/dL Normal 2.2-4.6 [facility] Comment on above: Performed By: #### X M #### [facility] (DEFAULT) [address] [place] [address] VON WILLEBRAND FACTOR AGOrde red By: Madhavi Mcelroy on 08-05-2024 Interpretation and review of laboratory results Abnormal [facility] vWf Ag actual/normal IA (PPP) [Relative mass conc] 230 % High 50 - 180 % [facility] CBC,PLATELETSon 08-04-2024 Erythrocyte distribution width (RBC) [Ratio] 13.7 % 10.8 - 14.9 % [facility] Hematocrit (Bld) [Volume fraction] 40.8 % 34.9 - 44.3 % [facility] Hemoglobin (Bld) [Mass/Vol] 12.7 g/dL 11.4 - 15.2 g/dL [facility] Interpretation and review of laboratory results Abnormal [facility] MCH (RBC) [Entitic mass] 28.7 pg 25.9 - 33.9 pg [facility] MCHC (RBC) [Mass/Vol] 31.1 g/dL Low 31.4 - 35.9 g/dL [facility] MCV (RBC) [Entitic vol] 92.1 fL 79.6 - 97.7 fL [facility] Platelet mean volume (Bld) [Entitic vol] 10.8 fL 8.5 - 12.2 fL [facility] Platelets (Bld) [#/Vol] 228 10*3/uL 150 - 393 K/uL [facility] RBC (Bld) [#/Vol] 4.43 10*6/uL [facility] WBC (Bld) [#/Vol] 11.41 10*3/uL High 3.99 - 11.19 K/uL [facility] Hematocrit (Bld) [Volume fraction] 40.8 % Normal 34.9-44.3 [facility] Comment on above: Performed By: #### H EMOGC #### [facility] (DEFAULT) [address] [place] [address] Hemoglobin (Bld) [Mass/Vol] 12.7 g/dL Normal 11.4-15.2 [facility] Comment on above: Performed By: #### H EMOGC #### [facility] (DEFAULT) [address] [address] MCV (RBC) [Entitic vol] 92.1 fL Normal 79.6-97.7 [facility] Comment on above: Performed By: #### H EMOGC #### [facility] (DEFAULT) [address] [address] Mean Cell Hgb 28.7 pg Normal 25.9-33.9 [facility] Comment on above: Performed By: #### H EMOGC #### [facility] (DEFAULT) [address] [place] [address] Mean Cell Hgb Conc 31.1 g/dL Low 31.4-35.9 [facility] Comment on above: Performed By: #### H EMOGC #### [facility] (DEFAULT) [address] [address] Platelet mean volume (Bld) [Entitic vol] 10.8 fL Normal 8.5-12.2 [facility] Comment on above: Performed By: #### H EMOGC #### [facility] (DEFAULT) [address] [address] Platelets (Bld) [#/Vol] 228 10*3/uL Normal 150-393 [facility] Comment on above: Performed By: #### H [facility] #### [facility] (DEFAULT) [address] [place] [address] RBC (Bld) [#/Vol] 4.43 10*6/uL Normal 3.91-5.04 [facility] Comment on above: Performed By: #### H EMO #### [facility] (DEFAULT) [address] [place] [address] RBC Distribution 13.7 % Normal 10.8-14.9 [facility] Comment on above: Performed By: #### H [facility] #### [facility] (DEFAULT) [address] [place] [address] WBC (Bld) [#/Vol] 11.41 10*3/uL High 3.99-11.19 [facility] Comment on above: Performed By: #### H [facility] #### [facility] (DEFAULT) [address] [place] [address] CHEM 7 (LYTES,BUN,CREA,GLUC) Ordered By: Lizette Canseco on 08-04-2024 Anion gap [Moles/Vol] 16 mmol/L 7 - 17 mmol/L [facility] Chloride [Moles/Vol] 109 mmol/L High 98 - 10 8 mmol/L [facility] CO2 [Moles/Vol] 24 mmol/L 21 - 31 mmol/L [facility] Creatinine [Mass/Vol] 1.47 mg/dL High 0.50 - 1.20 mg/dL [facility] eGFR, CKD-EPI, Female 36 Low - PINF [facility] Glucose [Mass/Vol] 181 mg/dL High 70 - 179 mg/dL [facility] Interpretation and review of laboratory results Abnormal [facility] Osmolality Calc [Osmolality] 312 High [facility] Potassium [Moles/Vol] 4 mmol/L 3.5 - 5.0 mmol/L [facility] Sodium [Moles/Vol] 145 mmol/L 135 - 145 mmol/L [facility] Urea nitrogen [Mass/Vol] 26 mg/dL High 7 - 25 mg/dL [facility] Urea nitrogen/Creatinine [Mass ratio] 18 mg/mg [facility] CHEM 7 (LYTES,BUN,CREA,GLUC) on 08-04-2024 Anion gap [Moles/Vol] 16 mmol/L Normal 7-17 [facility] Comment on above: Performed By: #### S URGP #### [facility] (DEFAULT) [address] [place] [address] Chloride [Moles/Vol] 109 mmol/L High 98-108 [facility] Comment on above: Performed By: #### S URGP #### [facility] (DEFAULT) [address] [place] [address] CO2 [Moles/Vol] 24 mmol/L Normal 21-31 [facility] Comment on above: Performed By: #### S URGP #### [facility] (DEFAULT) [address] [place] [address] Creatinine [Mass/Vol] 1.47 mg/dL High 0.50-1.20 [facility] Comment on above: Performed By: #### S URGP #### [facility] (DEFAULT) [address] [place] [address] GFR/1.73 sq M.predicted among non-blacks MDRD (S/P/Bld) [Vol rate/Area] 36 mL/min/{1.73_m2} Low >=60 [facility] Comment on above: Result Comment: Repo rted eGFR is based on the CKD-EPI 2020 equation using creatinine, age, and sex. Performed By: #### S URGP #### [facility] (DEFAULT) [address] [place] [address] Glucose [Mass/Vol] 181 mg/dL High Nonfastin -179 mg/dL; Fastin-99 [facility] Comment on above: Performed By: #### S URGP #### [facility] (DEFAULT) [address] [place] [address] Osmolality [Osmolality] 312 mosm/kg High 278-305 [facility] Comment on above: Performed By: #### S URGP #### [facility] (DEFAULT) [address] [place] [address] Potassium [Moles/Vol] 4.0 mmol/L Normal 3.5-5.0 [facility] Comment on above: Performed By: #### S URGP #### [facility] (DEFAULT) [address] [place] [address] Sodium [Moles/Vol] 145 mmol/L Normal 135-145 [facility] Comment on above: Performed By: #### S URGP #### [facility] (DEFAULT) [address] [place] [address] Urea nitrogen [Mass/Vol] 26 mg/dL High 7-25 [facility] Comment on above: Performed By: #### S URGP #### [facility] (DEFAULT) [address] [place] [address] Urea nitrogen/Creatinine [Mass ratio] 18 mg/mg Normal [facility] Comment on above: Performed By: #### S URGP #### [facility] (DEFAULT) [address] [place] [address] HEAD WITHOUT CONTRASTon 0 08-04-2024 CT [...] sinuses are clear. IMPRESSION: Stable exam. Normal [facility] CT Head WO contraston 2024 RADIOLOGY RADIOLOGY [facility] CT Head WO contrastOrdered B y: Chirag Mendenhall on 08-04-2024 [facility] Work Phone: GLUCOSE POCon 08-04-2024 Glucose [Mass/Vol] 227 mg/dL High 70 - 179 mg/dL [facility] Interpretation and review of laboratory results [facility] POC Sample Type [facility] Glucose [Mass/Vol] 235 mg/dL High 70 - 179 mg/dL [facility] Interpretation and review of laboratory results Abnormal [facility] POC Sample Type VENO [facility] Glucose [Mass/Vol] 215 mg/dL High 70 - 179 mg/dL [facility] Interpretation and review of laboratory results Abnormal [facility] POC Sample Type [facility]BL [facility] Glucose [Mass/Vol] 178 mg/dL 70 - 179 mg/dL [facility] Glucose [Mass/Vol] 157 mg/dL 70 - 179 mg/dL [facility] Glucose [Mass/Vol] 271 mg/dL High 70 - 179 mg/dL [facility] Glucose [Mass/Vol] 267 mg/dL High 70 - 179 mg/dL [facility] Glucose [Mass/Vol] 246 mg/dL High 70 - 179 mg/dL [facility] IONIZED CALCIUM, WHOLE BLOOD Ordered By: Laura Rodriguez on 08-04-2024 Calcium.ionized (Bld) [Moles/Vol] 4.8 mg/dL 4.60 - 5.30 mg/dL [facility] Interpretation and review of laboratory results Normal [facility] IONIZED CALCIUM, WHOLE BLOOD on 08-04-2024 ICA 4.80 mg/dL Normal 4.60-5.30 [facility] Comment on above: Performed By: #### T YPEC #### [facility] (DEFAULT) [address] [place] [address] MAGNESIUMon 08-04-2024 Magnesium [Mass/Vol] 1.9 mg/dL 1.6 - 2 .6 mg/dL [facility] Magnesium [Mass/Vol] 1.9 mg/dL Normal 1.6-2.6 [facility] Comment on above: Performed By: #### X M #### [facility] (DEFAULT) [address] [place] [address] No Panel Informationon 08-04 POC Sample Type CAPBL [facility] Interpretation and review of laboratory results Abnormal [facility] Interpretation and review of laboratory results Normal [facility] PHOSPHATE, INORGANICon 08-04 Phosphate [Mass/Vol] 2.8 mg/dL 2.2 - 4 .6 mg/dL [facility] Phosphorous 2.8 mg/dL Normal 2.2-4.6 [facility] Comment on above: Performed By: #### X M #### [facility] (DEFAULT) [address] [address] SODIUMon 08-04-2024 Interpretation and review of laboratory results Normal [facility] Sodium [Moles/Vol] 142 mmol/L 135 - 145 mmol/L [facility] Sodium [Moles/Vol] 142 mmol/L Normal 135-145 [facility] Comment on above: Order Comment: While on 3% Hypertonic Saline. Performed By: #### S URGP #### [facility] (DEFAULT) [address] [address] Interpretation and review of laboratory results Normal [facility] Sodium [Moles/Vol] 141 mmol/L 135 - 145 mmol/L [facility] Sodium [Moles/Vol] 141 mmol/L Normal 135-145 [facility] Comment on above: Order [...] bottle. Performed By: #### B LDCULT #### [facility] (DEFAULT) [address] [address] Interpretation and review of laboratory results Normal [facility] Sodium [Moles/Vol] 143 mmol/L 135 - 145 mmol/L [facility] Sodium [Moles/Vol] 143 mmol/L Normal 135-145 [facility] Comment on above: Order Comment: While on 3% Hypertonic Saline. Performed By: #### H EMO #### [facility] (DEFAULT) [address] [address] ABORH TYPE RECONFIRMATIONon 08-03-2024 ABO/RH(D) TYPE Negative [facility] ABO/RH(D) TYPE Negative Normal [facility] Comment on above: Performed By: #### T YPEC #### [facility] (DEFAULT) [address] [address] CBC,PLATELETSon 08-03-2024 Erythrocyte distribution width (RBC) [Ratio] 13.2 % 10.8 - 14.9 % [facility] Hematocrit (Bld) [Volume fraction] 42.8 % 34.9 - 44.3 % [facility] Hemoglobin (Bld) [Mass/Vol] 13.5 g/dL 11.4 - 15.2 g/dL [facility] Interpretation and review of laboratory results Normal [facility] MCH (RBC) [Entitic mass] 29.2 pg 25.9 - 33.9 pg [facility] MCHC (RBC) [Mass/Vol] 31.5 g/dL 31.4 - 35.9 g/dL [facility] MCV (RBC) [Entitic vol] 92.4 fL 79.6 - 97.7 fL [facility] Platelet mean volume (Bld) [Entitic vol] 11.2 fL 8.5 - 12.2 fL [facility] Platelets (Bld) [#/Vol] 227 10*3/uL 150 - 393 K/uL [facility] RBC (Bld) [#/Vol] 4.63 10*6/uL [facility] WBC (Bld) [#/Vol] 8.43 10*3/uL 3.99 - 11.19 K/uL [facility] Hematocrit (Bld) [Volume fraction] 42.8 % Normal 34.9-44.3 [facility] Comment on above: Performed By: #### X M #### [facility] (DEFAULT) [address] [address] Hemoglobin (Bld) [Mass/Vol] 13.5 g/dL Normal 11.4-15.2 [facility] Comment on above: Performed By: #### X M #### [facility] (DEFAULT) [address] [address] MCV (RBC) [Entitic vol] 92.4 fL Normal 79.6-97.7 [facility] Comment on above: Performed By: #### X M #### [facility] (DEFAULT) [address] [address] Mean Cell Hgb 29.2 pg Normal 25.9-33.9 [facility] Comment on above: Performed By: #### X M #### [facility] (DEFAULT) [address] [place] [address] Mean Cell Hgb Conc 31.5 g/dL Normal 31.4-35.9 [facility] Comment on above: Performed By: #### X M #### [facility] (DEFAULT) [address] [place] [address] Platelet mean volume (Bld) [Entitic vol] 11.2 fL Normal 8.5-12.2 [facility] Comment on above: Performed By: #### X M #### [facility] (DEFAULT) [address] [place] [address] Platelets (Bld) [#/Vol] 227 10*3/uL Normal 150-393 [facility] Comment on above: Performed By: #### X M #### [facility] (DEFAULT) [address] [place] [address] 81287 RBC (Bld) [#/Vol] 4.63 10*6/uL Normal 3.91-5.04 [facility] Comment on above: Performed By: #### X M #### [facility] (DEFAULT) [address] [place] [address] 36875 RBC Distribution 13.2 % Normal 10.8-14.9 [facility] Comment on above: Performed By: #### X M #### [facility] (DEFAULT) [address] [place] [address] 05359 WBC (Bld) [#/Vol] 8.43 10*3/uL Normal 3.99-11.19 [facility] Comment on above: Performed By: #### X M #### [facility] (DEFAULT) [address] [place] [address] 44560 CHEM 7 (LYTES,BUN,CREA,GLUC) on 08-03-2024 Anion gap [Moles/Vol] 16 mmol/L 7 - 17 mmol/L [facility] Chloride [Moles/Vol] 103 mmol/L 98 - 10 8 mmol/L [facility] CO2 [Moles/Vol] 23 mmol/L 21 - 31 mmol/L [facility] Creatinine [Mass/Vol] 1.35 mg/dL High 0.50 - 1.20 mg/dL [facility] eGFR, CKD-EPI, Female 40 Low - PINF [facility] Glucose [Mass/Vol] 151 mg/dL 70 - 179 mg/dL [facility] Interpretation and review of laboratory results Abnormal [facility] Osmolality Calc [Osmolality] 295 [facility] Potassium [Moles/Vol] 4.3 mmol/L 3.5 - 5.0 mmol/L [facility] Sodium [Moles/Vol] 138 mmol/L 135 - 145 mmol/L [facility] Urea nitrogen [Mass/Vol] 18 mg/dL 7 - 25 mg/dL [facility] Urea nitrogen/Creatinine [Mass ratio] 13 mg/mg [facility] Anion gap [Moles/Vol] 16 mmol/L Normal 7-17 [facility] Comment on above: Performed By: #### S URGP #### [facility] (DEFAULT) [address] [place] [address] 28193 Chloride [Moles/Vol] 103 mmol/L Normal 98-108 [facility] Comment on above: Performed By: #### S URGP #### [facility] (DEFAULT) [address] [place] [address] CO2 [Moles/Vol] 23 mmol/L Normal 21-31 [facility] Comment on above: Performed By: #### S URGP #### [facility] (DEFAULT) [address] [place] [address]61 Creatinine [Mass/Vol] 1.35 mg/dL High 0.50-1.20 [facility] Comment on above: Performed By: #### S URGP #### [facility] (DEFAULT) [address] [place] [address]19 GFR/1.73 sq M.predicted among non-blacks MDRD (S/P/Bld) [Vol rate/Area] 40 mL/min/{1.73_m2} Low >=60 [facility] Comment on above: Result Comment: Repo rted eGFR is based on the CKD-EPI 2020 equation using creatinine, age, and sex. Performed By: #### S URGP #### [facility] (DEFAULT) [address] [place] [address] 22481 Glucose [Mass/Vol] 151 mg/dL Normal Nonfastin -179 mg/dL; Fastin-99 [facility] Comment on above: Performed By: #### S URGP #### [facility] (DEFAULT) [address] [place] [address]304 Osmolality [Osmolality] 295 mosm/kg Normal 278-305 [facility] Comment on above: Performed By: #### S URGP #### [facility] (DEFAULT) [address] [place] [address] 18521 Potassium [Moles/Vol] 4.3 mmol/L Normal 3.5-5.0 [facility] Comment on above: Result Comment: Spec imen slightly hemolyzed. Potassium results may be falsey elevated by more than 0.5 mmol/L. Consider recollection. Performed By: #### S URGP #### [facility] (DEFAULT) [address] [place] [address] 68543 Sodium [Moles/Vol] 138 mmol/L Normal 135-145 [facility] Comment on above: Performed By: #### S URGP #### [facility] (DEFAULT) [address] [address] Urea nitrogen [Mass/Vol] 18 mg/dL Normal 7-25 [facility] Comment on above: Performed By: #### S URGP #### [facility] (DEFAULT) [address] [place] [address] 93341 Urea nitrogen/Creatinine [Mass ratio] 13 mg/mg Normal [facility] Comment on above: Performed By: #### S URGP #### [facility] (DEFAULT) [address] [place] [address] CT CHEST WITH CONTRAST STANLEY Macedo 08-03-2024 CT CHEST WITH CONTRAST VASCULAR TRAUMA [...] have reviewed and approved this report. Normal [facility] CT Cervical spine WO contras ton 08-03-2024 RADIOLOGY RADIOLOGY [facility] CT Cervical spine WO contras tOrdered By: Alissa Chun on 08-03-2024 [facility] Work Phone: CT Chest W contrast Seth RADIOLOGY RADIOLOGY [facility] CT Chest W contrast IVOrdere d By: Kayla Newell on 08-03-2024 [facility] Work Phone: CT HEAD WITHOUT CONTRASTon 0 [...] since the MRI from earlier today Normal [facility] CT Head WO contraston 2024 Radiology Study observation (narrative) [facility] RADIOLOGY RADIOLOGY [facility] Radiology Study observation (narrative) [facility] CT ORBITS WITHOUT CONTRASTon 08-03-2024 CT [...] basal ganglia hyperdensity concerning for hemorrhage. Normal [facility] CT Orbit WO contraston 08-03 RADIOLOGY RADIOLOGY [facility] CT SPINE CERVICAL WITHOUT CO NTRASTon 08-03-2024 [...] No evidence of acute fractures identified Normal [facility] EXTRA MICROon 08-03-2024 [facility] GLUCOSE POCon 08-03-2024 Glucose [Mass/Vol] 161 mg/dL 70 - 179 mg/dL [facility] POC Sample Type CAPBL [facility] IONIZED CALCIUM, WHOLE BLOOD Ordered By: Alejandra Ness on 08-03-2024 Calcium.ionized (Bld) [Moles/Vol] 4.24 mg/dL Low 4.60 - 5.30 mg/dL [facility] Interpretation and review of laboratory results Abnormal [facility] IONIZED CALCIUM, WHOLE BLOOD on 08-03-2024 ICA 4.24 mg/dL Low 4.60-5.30 [facility] Comment on above: Performed By: #### H [facility] #### [facility] (DEFAULT) [address] [place] [address] MAGNESIUMon 08-03-2024 Magnesium [Mass/Vol] 2.1 mg/dL 1.6 - 2 .6 mg/dL [facility] Magnesium [Mass/Vol] 2.1 mg/dL Normal 1.6-2.6 [facility] Comment on above: Performed By: #### S URGP #### [facility] (DEFAULT) [address] [place] [address] 18766 MR Brain WO contraston 08-03 RADIOLOGY RADIOLOGY [facility] Radiology Study observation (narrative) [facility] MR Cervical spine WO contras ton 08-03-2024 RADIOLOGY RADIOLOGY [facility] Radiology Study observation (narrative) [facility] MR Cervical spine WO contras tOrdered By: Kuldeep Tavares on 08-03-2024 [facility] Work Phone: MRI BRAIN WITHOUT CONTRASTon 08-03-2024 [...] tiny 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 Normal [facility] MRI SPINE CERVICAL WITHOUT C ONTRASTon [...] have reviewed and approved this report. Normal [facility] NT-PRO B-TYPE NATRIURETIC PE PTIDEon 08-03-2024 Interpretation and review of laboratory results Abnormal [facility] Natriuretic peptide.B prohormone N-Terminal IA [Mass/Vol] 1115 pg/mL High NINF - 540 pg/mL [facility] No Panel Informationon 08-03 RADIOLOGY RADIOLOGY [facility] Interpretation and review of laboratory results Normal [facility] No Panel InformationOrdered By: Richard Sánchez on 08-03-2024 [facility] Work Phone: PHOSPHATE, INORGANICon 08-03 Phosphate [Mass/Vol] 3.5 mg/dL 2.2 - 4 .6 mg/dL [facility] Phosphorous 3.5 mg/dL Normal 2.2-4.6 [facility] Comment on above: Performed By: #### S URGP #### [facility] (DEFAULT) [address] [place] [address] SCREEN: MRSA/MSSAOrdered By: Gail Collado on 08-03-2024 Interpretation and review of laboratory results Normal [facility] Methicillin Resistant S. Aureus By Pcr Negative Negative [facility] Staphylococcus Aureus By Pcr Negative Negative [facility] SODIUMon 08-03-2024 Interpretation and review of laboratory results Normal [facility] Sodium [Moles/Vol] 139 mmol/L 135 - 145 mmol/L [facility] Sodium [Moles/Vol] 139 mmol/L Normal 135-145 [facility] Comment on above: Order Comment: While on 3% Hypertonic Saline. Performed By: #### N AO ####[facility] (DEFAULT)[address] [place] [address] Interpretation and review of laboratory results Abnormal [facility] Sodium [Moles/Vol] 134 mmol/L Low 135 - 145 mmol/L [facility] Sodium [Moles/Vol] 134 mmol/L Low 135-145 [facility] Comment on above: Order Comment: While on 3% Hypertonic Saline. Performed By: #### H EMO #### [facility] (DEFAULT) [address] [place] [address] XR ABDOMEN 1 VIEW PORTABLEon 08-03-2024 XR [...] proximal second portion of the duodenum. Normal [facility] XR Abdomen Single viewon RADIOLOGY RADIOLOGY [facility] Radiology Study observation (narrative) [facility] XR Abdomen Single viewOrdere d By: Huey Gibson on 08-03-2024 [facility] XR ELBOW RIGHT 2 VIEWSon XR ELBOW RIGHT 2 VIEWS EXAM: XR ELBOW RI GHT 2 VIEWS, XR HUMERUS RIGHT 2+ VIEWS, XR WRIST RIGHT 3+ VIEWS, 08/02/2024 23:24 PM (accession [id number]), 08/02/2024 23:24 PM (accession [id number]), 08/02/2024 23:23 PM (accession [id number]) COMPARISON: No prior studies available for comparison. [...] dislocation. IMPRESSION: No acute osseous abnormality. Normal [facility] XR HUMERUS RIGHT 2+ VIEWSon 08-03-2024 XR HUMERUS RIGHT 2+ VIEWS EXAM: XR ELBOW RIGHT 2 VIEWS, XR HUMERUS RIGHT 2+ VIEWS, XR WRIST RIGHT 3+ VIEWS, 08/02/2024 23:24 PM (accession [id number]), 08/02/2024 23:24 PM (accession [id number]), 08/02/2024 23:23 PM (accession [id number]) COMPARISON: No prior studies available for comparison. [...] dislocation. IMPRESSION: No acute osseous abnormality. Normal [facility] XR WRIST RIGHT 3+ VIEWSon XR WRIST RIGHT 3+ VIEWS EXAM: XR ELBOW R IGHT 2 VIEWS, XR HUMERUS RIGHT 2+ VIEWS, XR WRIST RIGHT 3+ VIEWS, 08/02/2024 23:24 PM (accession [id number]), 08/02/2024 23:24 PM (accession [id number]), 08/02/2024 23:23 PM (accession [id number]) COMPARISON: No prior studies available for comparison. [...] dislocation. IMPRESSION: No acute osseous abnormality. Normal [facility] 12 Lead EKGon 08-02-2024 12 Lead EKG [facility] [address] [place] [address]327 12 Lead EKG 08/02/24 1309 MR#: [id number] Acct: [id number] Name: LINDSAY ACUNA Rep #: [id number] : 1945 78 From: Mj Benavides MD [...] ECG Confirmed by MJ BENAVIDES MD ([id number]), film or videotape editor NAIMA BEARDEN ([id number]) on 08/05/2024 6:47:07 AM Referred By: Confirmed By: MJ BENAVIDES MD 08/05/24 0647 Date Mj Benavides MD CC: Dr. Pieter Morgan MD; Dr. Kameron Caruso MD Signed Normal [facility] Absolute lymphocyte countOrd ered By: Pieter Morgan on 08-02-2024 Lymphocytes Auto (Unsp spec) [#/Vol] 1.56 10*3/uL 0.83-4.51 [facility] Absolute neutrophil countOrd ered By: Pieter Morgan on 08-02-2024 Neutrophils (Bld) [#/Vol] 6.2 10*3/uL 2.0-7.7 [facility] Activated partial thrombopla stin time (aPTT) in platelet poor plasma by coagulation aOrdered By: Pieter Morgan on 08-02-2024 aPTT Coag (PPP) [Time] 28.4 s 24.1-36.2 [facility] Anion gap in Serum or Plasma Ordered By: Pieter Morgan on 08-02-2024 Anion gap [Moles/Vol] 12 mmol/L 5-15 [facility] Automated lymphocyte count a s percentage of total leukocytesOrdered By: Pieter Morgan on 08-02-2024 Lymphocytes/100 WBC Auto (Unsp spec) 17.9 % Low 19-41 [facility] BUN/creatinine ratioOrdered By: Pieter Morgan on 08-02-2024 Urea nitrogen/Creatinine [Mass ratio] 11.6 mg/mg 10-20 [facility] Basic Metabolic Profile (BMP )on 08-02-2024 BUN/CRE 11.6 RATIO Normal - [facility] Comment on above: Performed By: #### L 300.4310, L501.4021, L300.3900, L500.2500, L100.0100 #### [facility] [address] [place], [address] Calcium [Mass/Vol] 9.0 mg/dL Normal 7.6-11.0 [facility] Comment on above: Performed By: #### L 300.4310, L501.4021, L300.3900, L500.2500, L100.0100 #### [facility] [address] [place], [address] Chloride [Moles/Vol] 98 mmol/L Normal 98-108 [facility] Comment on above: Performed By: #### L 300.4310, L501.4021, L300.3900, L500.2500, L100.0100 #### [facility] [address] [place], [address] CO2 [Moles/Vol] 22.0 mmol/L Normal 21.0-32.0 [facility] Comment on above: Performed By: #### L 300.4310, L501.4021, L300.3900, L500.2500, L100.0100 #### [facility] [address] [place], [address] Creatinine [Mass/Vol] 1.74 mg/dL High 0.70-1.20 [facility] Comment on above: Performed By: #### L 300.4310, L501.4021, L300.3900, L500.2500, L100.0100 #### [facility] [address] [place], [address] ECRCL 27.14 ml/min Low 50-250 [facility] Comment on above: Performed By: #### L 300.4310, L501.4021, L300.3900, L500.2500, L100.0100 #### [facility] [address] [place], [address] GAP 12 Normal 5-15 [facility] Comment on above: Performed By: #### L 300.4310, L501.4021, L300.3900, L500.2500, L100.0100 #### [facility] [address] [place], [address] GFR/1.73 sq M.predicted among non-blacks MDRD (S/P/Bld) [Vol rate/Area] 29 mL/min/{1.73_m2} Low >60 [facility] Comment on above: Result Comment: mL/m in/1.73m2 CKD-EPI Creatinine Equation (2020) Performed By: #### L 300.4310, L501.4021, L300.3900, L500.2500, L100.0100 #### [facility] [address] [place], [address] Glucose [Mass/Vol] 235 mg/dL High 70-99 [facility] Comment on above: Performed By: #### L 300.4310, L501.4021, L300.3900, L500.2500, L100.0100 #### [facility] [address] [place], [address] Potassium [Moles/Vol] 4.2 mmol/L Normal 3.3-5.1 [facility] Comment on above: Performed By: #### L 300.4310, L501.4021, L300.3900, L500.2500, L100.0100 #### [facility] [address] [place], [address] Sodium [Moles/Vol] 132 mmol/L Low 133-145 [facility] Comment on above: Performed By: #### L 300.4310, L501.4021, L300.3900, L500.2500, L100.0100 #### [facility] [address] [place], [address] Urea nitrogen [Mass/Vol] 20 mg/dL High 4-19 [facility] Comment on above: Performed By: #### L 300.4310, L501.4021, L300.3900, L500.2500, L100.0100 #### [facility] [address] [place], [address] Basophil percentageOrdered B y: Pieter Morgan on 08-02-2024 Basophils/100 WBC (Bld) 0.5 % 0-[address] [facility] CBC W/Diff, Automatedon 03-2 Absolute Lymph 1.56 X10 3/uL Normal 0.83-4.51 [facility] Comment on above: Performed By: #### L 300.4310, L501.4021, L300.3900, L500.2500, L100.0100 #### [facility] [address] [place], [address] Absolute Neut 6.2 X10 3/uL Normal 2.0-7.7 [facility] Comment on above: Performed By: #### L 300.4310, L501.4021, L300.3900, L500.2500, L100.0100 #### [facility] [address] [place], [address] Basophils/100 WBC (Bld) 0.5 % Normal 0-[address] [facility] Comment on above: Performed By: #### L 300.4310, L501.4021, L300.3900, L500.2500, L100.0100 #### [facility] [address] [place], [address] Eosinophils/100 WBC (Bld) 1.0 % Normal 0-5 [facility] Comment on above: Performed By: #### L 300.4310, L501.4021, L300.3900, L500.2500, L100.0100 #### [facility] [address] [place], [address] Erythrocyte distribution width (RBC) [Ratio] 13.3 % Normal 11.6-14.6 [facility] Comment on above: Performed By: #### L 300.4310, L501.4021, L300.3900, L500.2500, L100.0100 #### [facility] [address] [place], [address] Hematocrit (Bld) [Volume fraction] 42.0 % Normal 37-47 [facility] Comment on above: Performed By: #### L 300.4310, L501.4021, L300.3900, L500.2500, L100.0100 #### [facility] [address] [place], [address] Hemoglobin (Bld) [Mass/Vol] 13.8 g/dL Normal 12.0-15.0 [facility] Comment on above: Performed By: #### L 300.4310, L501.4021, L300.3900, L500.2500, L100.0100 #### [facility] [address] [place], [address] IG% 0.300 Normal 0.0-0.9 [facility] Comment on above: Result Comment: IG% - Immature Granulocytes (promyelocytes, myelocytes and metamyelocytes) > 1% indicates that a LEFT SHIFT is Present. Performed By: #### L 300.4310, L501.4021, L300.3900, L500.2500, L100.0100 #### [facility] [address] [place], [address] Lymphocytes/100 WBC (Bld) 17.9 % Low 19-41 [facility] Comment on above: Performed By: #### L 300.4310, L501.4021, L300.3900, L500.2500, L100.0100 #### [facility] [address] [place], [address] MCH (RBC) [Entitic mass] 30.3 pg Normal 27.0-32.0 [facility] Comment on above: Performed By: #### L 300.4310, L501.4021, L300.3900, L500.2500, L100.0100 #### [facility] [address] [place], [address] MCHC (RBC) [Mass/Vol] 32.9 g/dL Normal 32-36 [facility] Comment on above: Performed By: #### L 300.4310, L501.4021, L300.3900, L500.2500, L100.0100 #### [facility] [address] [place], [address] MCV (RBC) [Entitic vol] 92.1 fL Normal 81-[address] [facility] Comment on above: Performed By: #### L 300.4310, L501.4021, L300.3900, L500.2500, L100.0100 #### [facility] [address] [place], [address] Monocytes/100 WBC (Bld) 8.9 % Normal 0-[address] [facility] Comment on above: Performed By: #### L 300.4310, L501.4021, L300.3900, L500.2500, L100.0100 #### [facility] [address] [place], [address] Neutrophils/100 WBC (Bld) 71.4 % High 47-70 [facility] Comment on above: Performed By: #### L 300.4310, L501.4021, L300.3900, L500.2500, L100.0100 #### [facility] [address] [place], [address] Nucleated RBC (Bld) [#/Vol] 0 10*3/uL Normal 0-5 [facility] Comment on above: Performed By: #### L 300.4310, L501.4021, L300.3900, L500.2500, L100.0100 #### [facility] [address] [place], [address] Platelet mean volume (Bld) [Entitic vol] 10.7 fL Normal 6.2-12.0 [facility] Comment on above: Performed By: #### L 300.4310, L501.4021, L300.3900, L500.2500, L100.0100 #### [facility] [address] [place], [address] Platelets (Bld) [#/Vol] 214 10*3/uL Normal 150-450 [facility] Comment on above: Performed By: #### L 300.4310, L501.4021, L300.3900, L500.2500, L100.0100 #### [facility] [address] [place], [address] RBC (Bld) [#/Vol] 4.56 10*6/uL Normal 4.2-5.4 [facility] Comment on above: Performed By: #### L 300.4310, L501.4021, L300.3900, L500.2500, L100.0100 #### [facility] [address] [place], [address] RDW SD 45.3 fl High 35.1-43.9 [facility] Comment on above: Performed By: #### L 300.4310, L501.4021, L300.3900, L500.2500, L100.0100 #### [facility] [address] [place], [address] WBC (Bld) [#/Vol] 8.7 10*3/uL Normal 4.4-11.0 [facility] Comment on above: Performed By: #### L 300.4310, L501.4021, L300.3900, L500.2500, L100.0100 #### [facility] [address] [place], [address] CBC,PLATELETSon 08-02-2024 Erythrocyte distribution width (RBC) [Ratio] 13.3 % 10.8 - 14.9 % [facility] Hematocrit (Bld) [Volume fraction] 43.8 % 34.9 - 44.3 % [facility] Hemoglobin (Bld) [Mass/Vol] 14 g/dL 11.4 - 15.2 g/dL [facility] Interpretation and review of laboratory results Normal [facility] MCH (RBC) [Entitic mass] 29.4 pg 25.9 - 33.9 pg [facility] MCHC (RBC) [Mass/Vol] 32 g/dL 31.4 - 35.9 g/dL [facility] MCV (RBC) [Entitic vol] 92 fL 79.6 - 97.7 fL [facility] Platelet mean volume (Bld) [Entitic vol] 10.8 fL 8.5 - 12.2 fL [facility] Platelets (Bld) [#/Vol] 245 10*3/uL 150 - 393 K/uL [facility] RBC (Bld) [#/Vol] 4.76 10*6/uL [facility] WBC (Bld) [#/Vol] 8.16 10*3/uL 3.99 - 11.19 K/uL [facility] Hematocrit (Bld) [Volume fraction] 43.8 % Normal 34.9-44.3 [facility] Comment on above: Performed By: #### B LDCULT #### [facility] (DEFAULT) [address] [address] Hemoglobin (Bld) [Mass/Vol] 14.0 g/dL Normal 11.4-15.2 [facility] Comment on above: Performed By: #### B LDCULT #### [facility] (DEFAULT) [address] [place] [address] MCV (RBC) [Entitic vol] 92.0 fL Normal 79.6-97.7 [facility] Comment on above: Performed By: #### B LDCULT #### [facility] (DEFAULT) [address] [address] Mean Cell Hgb 29.4 pg Normal 25.9-33.9 [facility] Comment on above: Performed By: #### B LDCULT #### [facility] (DEFAULT) [address] [place] [address] Mean Cell Hgb Conc 32.0 g/dL Normal 31.4-35.9 [facility] Comment on above: Performed By: #### B LDCULT #### [facility] (DEFAULT) [address] [place] [address] Platelet mean volume (Bld) [Entitic vol] 10.8 fL Normal 8.5-12.2 [facility] Comment on above: Performed By: #### B LDCULT #### [facility] (DEFAULT) [address] [place] [address] Platelets (Bld) [#/Vol] 245 10*3/uL Normal 150-393 [facility] Comment on above: Performed By: #### B LDCULT #### [facility] (DEFAULT) [address] [place] [address] RBC (Bld) [#/Vol] 4.76 10*6/uL Normal 3.91-5.04 [facility] Comment on above: Performed By: #### B LDCULT #### [facility] (DEFAULT) [address] [place] [address] RBC Distribution 13.3 % Normal 10.8-14.9 [facility] Comment on above: Performed By: #### B LDCULT #### [facility] (DEFAULT) [address] [place] [address] WBC (Bld) [#/Vol] 8.16 10*3/uL Normal 3.99-11.19 [facility] Comment on above: Performed By: #### B LDCULT #### [facility] (DEFAULT) [address] [place] [address] CHEM 7 (LYTES,BUN,CREA,GLUC) on 08-02-2024 Anion gap [Moles/Vol] 16 mmol/L 7 - 17 mmol/L [facility] Chloride [Moles/Vol] 105 mmol/L 98 - 10 8 mmol/L [facility] [facility] CO2 [Moles/Vol] 22 mmol/L 21 - 31 mmol/L [facility] Creatinine [Mass/Vol] 1.37 mg/dL High 0.50 - 1.20 mg/dL [facility] eGFR, CKD-EPI, Female 39 Low - PINF [facility] Glucose [Mass/Vol] 210 mg/dL High 70 - 179 mg/dL [facility] Osmolality Calc [Osmolality] 299 [facility] Potassium [Moles/Vol] 3.7 mmol/L 3.5 - 5.0 mmol/L [facility] Sodium [Moles/Vol] 139 mmol/L 135 - 145 mmol/L [facility] Urea nitrogen [Mass/Vol] 18 mg/dL 7 - 25 mg/dL [facility] Urea nitrogen/Creatinine [Mass ratio] 13 mg/mg [facility] Anion gap [Moles/Vol] 16 mmol/L Normal 7-17 [facility] Comment on above: Performed By: #### H [facility] #### [facility] (DEFAULT) [address] [address] Chloride [Moles/Vol] 105 mmol/L Normal 98-108 [facility] Comment on above: Performed By: #### H [facility] #### [facility] (DEFAULT) [address] [place] [address] CO2 [Moles/Vol] 22 mmol/L Normal 21-31 [facility] Comment on above: Performed By: #### H [facility] #### [facility] (DEFAULT) [address] [address] Creatinine [Mass/Vol] 1.37 mg/dL High 0.50-1.20 [facility] Comment on above: Performed By: #### H [facility] #### [facility] (DEFAULT) [address] [address] GFR/1.73 sq M.predicted among non-blacks MDRD (S/P/Bld) [Vol rate/Area] 39 mL/min/{1.73_m2} Low >=60 [facility] Comment on above: Result Comment: Repo rted eGFR is based on the CKD-EPI 2020 equation using creatinine, age, and sex. Performed By: #### H EMOGC #### [facility] (DEFAULT) [address] [place] [address] Glucose [Mass/Vol] 210 mg/dL High Nonfastin -179 mg/dL; Fastin-99 [facility] Comment on above: Performed By: #### H EMOGC #### [facility] (DEFAULT) [address] [place] [address] Osmolality [Osmolality] 299 mosm/kg Normal 278-305 [facility] Comment on above: Performed By: #### H EMOGC #### [facility] (DEFAULT) [address] [place] [address] Potassium [Moles/Vol] 3.7 mmol/L Normal 3.5-5.0 [facility] Comment on above: Performed By: #### H EMO #### [facility] (DEFAULT) [address] [place] [address] Sodium [Moles/Vol] 139 mmol/L Normal 135-145 [facility] Comment on above: Performed By: #### H EMOGC #### [facility] (DEFAULT) [address] [place] [address] Urea nitrogen [Mass/Vol] 18 mg/dL Normal 7-25 [facility] Comment on above: Performed By: #### H EMOGC #### [facility] (DEFAULT) [address] [place] [address] Urea nitrogen/Creatinine [Mass ratio] 13 mg/mg Normal [facility] Comment on above: Performed By: #### H EMOGC #### [facility] (DEFAULT) [address] [place] [address] ABDOMEN/PELVIS WITH CONTR AST VASCULAR TRAUMAon [...] grade: None. Kidney trauma grade: None. Normal [facility] CT Abdomen and Pelvis W cont rast Seth 08-02-2024 RADIOLOGY RADIOLOGY [facility] CT Abdomen and Pelvis W cont rast IVOrdered By: Edson Head on 08-02-2024 [facility] Work Phone: CT Cervical spine WO contras ton 08-02-2024 Radiology Study observation (narrative) [facility] CT Orbit WO contraston 08-02 Radiology Study observation (narrative) [facility] Carbon dioxide, total [Moles /volume] in Central venous bloodOrdered By: Pieter Morgan on 08-02-2024 CO2 [Moles/Vol] 22.0 mmol/L 21.0-32.0 [facility] Chloride assayOrdered By: Racheal Morgan on 08-02-2024 Chloride [Moles/Vol] 98 mmol/L 98-108 [facility] Emergency Department Summary on 08-02-2024 Emergency Department Summary [facility] Medical Records Department [address] [place] [address] Emergency Department Summary 08/02/24 MR#: [id number] Acct: [id number] Name: LINDSAY ACUNA Rep #: [id number] : 1945 78 From: Pieter Morgan MD [...] the EMR. states they returned home from [facility] about 1.5-2 weeks ago, and they both had colds. He is better, but she is "on round 2." [facility] Medical History Paroxysmal atrial fibrillation with RVR [...] normal respir (more content not included)... Normal [facility] Eosinophil percentageOrdered By: Pieter Morgan on 08-02-2024 Eosinophils/100 WBC (Bld) 1.0 % 0-5 [facility] Erythrocyte distribution wid th ratioOrdered By: Pieter Morgan on 08-02-2024 Erythrocyte distribution width (RBC) [Ratio] 13.3 % 11.6-14.6 [facility] Erythrocyte distribution wid th standard deviationOrdered By: Pieter Morgan on 08-02-2024 Erythrocyte distribution width (RBC) [Entitic vol] 45.3 fL High 35.1-43.9 [facility] Erythrocyte distribution width (RBC) [Ratio] 45.3 fl High 35.1-43.9 [facility] Estimation of creatinine mackenzie aranceOrdered By: Pieter Morgan on 08-02-2024 Estimated Creatinine Clearance Calc 27.14 ml/min Low 50-250 [facility] GFR/1.73 sq M.predicted lana g non-blacks MDRD (S/P/Bld) [Vol rate/Area]Ordered By: Pieter Morgan on 08-02-2024 Estimated GFR (MDRD) Non-Af Amer 29 Low >60 [facility] Comment on above: mL/min/1.73m2 CKD-EP I Creatinine Equation (2020) Glomerular filtration rate ( GFR) estimation/1.73 sq m using serum, plasma, or whole bOrdered By: Pieter Morgan on 08-02-2024 GFR/1.73 sq M.predicted among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 8:39:22 AM NAME : LINDSAY ACUNA PID : [id number] : 1945 Gender : Female Race : [...] : Adenike Walton MA, Normal [facility] ALBUMIN/CREATININE RATIO, UR INEon 05-23-2024 Albumin DL <= 20 mg/L (U) [Mass/Vol] 16.3 mg/L Normal [facility] Comment on above: Order Comment: Speci men Type: URINE SPECIMENOrdering Facility: [facility] Address: [address] [place] [address] Performed By: #### U ACR ####[facility] LABCLIA [id number] [facility] [id number] [place] [address] STATES OF [facility] Albumin/Creatinine (U) [Mass ratio] 16 mg/g Normal <30 [facility] Comment on above: Order Comment: Speci men Type: URINE SPECIMENOrdering Facility: [facility] Address: [address] [place] [address] Result Comment: Adul t Male and Female Nephrotic Criteria: <30 mg/g is considered normal to mildly increased 30-300 mg/g is considered moderately increased >300 mg/g is considered severely increased KDIGO. (2013). KDIGO 2012 Clinical Practice Guideline for the Evaluation and Management of Chronic Kidney Disease. Official Journal of the International Society of Nephrology, 3(1), 1-150. Performed By: #### U ACR ####[facility] LABCLIA [id number] [address] [address] [place] Creatinine (U) [Mass/Vol] 102.1 mg/dL Normal 20.0-300.0 [facility] Comment on above: Order Comment: Speci men Type: URINE SPECIMENOrdering Facility: [facility] Address: [address] [place] [address] Performed By: #### U ACR ####[facility] LABCLIA [id number] [address] [address] [place] Comprehensive metabolic 2000 panelon 05-23-2024 Albumin [Mass/Vol] 4.2 g/dL Normal 3.9-4.9 [facility] Comment on above: Order Comment: Speci men Type: BLOOD SPECIMENOrdering Facility: [facility] Address: [address] [place] [address] Performed By: #### 2 4331-1, 84746-0, 3015-3 ####[facility] LABCLIA [id number] [place] [address] [place] ALP [Catalytic activity/Vol] 146 U/L High 34-123 [facility] Comment on above: Order Comment: Speci men Type: BLOOD SPECIMENOrdering Facility: [facility] Address: [address] [place] [address] Performed By: #### 2 4331-1, 51996-0, 3015-3 ####[facility] LABCLIA [id number] [place] [id number] [place] ALT [Catalytic activity/Vol] 17 U/L Normal 7-38 [facility] Comment on above: Order Comment: Speci men Type: BLOOD SPECIMENOrdering Facility: [facility] Address: [address] [place] [address] Performed By: #### 2 4331-1, 45591-0, 6-3 ####[facility] LABCLIA [id number] [place] [address] [place] Anion gap [Moles/Vol] 9 mmol/L Normal 8-15 [facility] Comment on above: Order Comment: Speci men Type: BLOOD SPECIMENOrdering Facility: [facility] Address: [address] [place] [address] Performed By: #### 2 4331-1, 03641-5, 6-3 ####[facility] LABCLIA [id number] [place] [address] [place] AST [Catalytic activity/Vol] 16 U/L Normal 13-35 [facility] Comment on above: Order Comment: Speci men Type: BLOOD SPECIMENOrdering Facility: [facility] Address: [address] [place] [address] Performed By: #### 2 4331-1, 28327-3, 6-3 ####[facility] LABCLIA [id number] [place] [address] [place] Bilirubin [Mass/Vol] 0.4 mg/dL Normal 0.2-1.3 [facility] Comment on above: Order Comment: Speci men Type: BLOOD SPECIMENOrdering Facility: [facility] Address: [address] [place] [address] Performed By: #### 2 4331-1, 42765-3, 6-3 ####[facility] LABCLIA [id number] [place] [address] [place] Calcium [Mass/Vol] 9.6 mg/dL Normal 8.5-10.2 [facility] Comment on above: Order Comment: Speci men Type: BLOOD SPECIMENOrdering Facility: [facility] Address: [address] [place] [address] Performed By: #### 2 4331-1, 72047-0, 6-3 ####[facility] LABCLIA [id number] [place] [id number] [place] Chloride [Moles/Vol] 104 mmol/L Normal 98-107 [facility] Comment on above: Order Comment: Speci men Type: BLOOD SPECIMENOrdering Facility: [facility] Address: [address] [place], [place] [address] Performed By: #### 2 4331-1, 29491-8, 3016-3 ####[facility] LABCLIA [id number] [place] [address] [place] CO2 [Moles/Vol] 28 mmol/L Normal 22-30 [facility] Comment on above: Order Comment: Speci men Type: BLOOD SPECIMENOrdering Facility: [facility] Address: [address] [place] [address] Performed By: #### 2 4331-1, 40099-2, 3016-3 ####[facility] LABCLIA [id number] [place] [address] [place] Creatinine [Mass/Vol] 1.31 mg/dL High 0.58-0.96 [facility] Comment on above: Order Comment: Speci men Type: BLOOD SPECIMENOrdering Facility: [facility] Address: [address] [place] [address] Performed By: #### 2 4331-1, 15442-7, 3016-3 ####[facility] LABCLIA [id number] [place] [address] [place] Creatinine and Glomerular filtration rate.predicted panel (S/P/Bld) 42 mL/min/1.73m??? Low >=60 [facility] Comment on above: Order Comment: Speci men Type: BLOOD SPECIMENOrdering Facility: [facility] Address: [address] [place] [address] Result Comment: Nancy mated Glomerular Filtration Rate [...] Performed By: #### 2 4331-1, , 3 ####[facility] LABCLIA [id number] [address] [address] [place] Glucose [Mass/Vol] 105 mg/dL High 74-99 [facility] Comment on above: Order Comment: Deana borjas Type: BLOOD SPECIMENOrdering Facility: [facility] Address: [address] [place] [address] Result Comment: The [place] Diabetes Association (ADA) provides guidance for [...] Standards of Medical Care in Diabetes 2016, [place] Diabetes Association. Diabetes Care. 2016.39(Suppl 1). Performed By: #### 2 4331-1, , 3015-07 ####[facility] LABCLIA [id number] [address] [address] [place] Potassium [Moles/Vol] 4.7 mmol/L Normal 3.7-5.1 [facility] Comment on above: Order Comment: Deana borjas Type: BLOOD SPECIMENOrdering Facility: [facility] Address: [address] [place] [address] Performed By: #### 2 4331-1, , 3015-07 ####[facility] LABCLIA [id number] [address] [address] [place] Protein [Mass/Vol] 7.1 g/dL Normal 6.3-8.0 [facility] Comment on above: Order Comment: Speci men Type: BLOOD SPECIMENOrdering Facility: [facility] Address: [address] [place] [address] Performed By: #### 2 4331-1, , 3015-07 ####[facility] LABCLIA [id number] [address] [address] [place] Sodium [Moles/Vol] 141 mmol/L Normal 136-144 [facility] Comment on above: Order Comment: Speci men Type: BLOOD SPECIMENOrdering Facility: [facility] Address: [address] [place] [address] Performed By: #### 2 4331-1, , 3015-07 ####[facility] LABCLIA [id number] [place] [address] [place] Urea nitrogen [Mass/Vol] 18 mg/dL Normal 7-21 [facility] Comment on above: Order Comment: Speci men Type: BLOOD SPECIMENOrdering Facility: [facility] Address: [address] [place] [address] Performed By: #### 2 4331-1, , 3015-07 ####[facility] LABIA [id number] [place] [address] [place] HbA1c (Bld)on 05-23-2024 Average glucose Estimated from glycated hemoglobin (Bld) [Mass/Vol] 154 mg/dL Normal [facility] Comment on above: Order Comment: Speci men Type: BLOOD SPECIMENOrdering Facility: [facility] Address: [address] [place] [address] Result Comment: eAG: (Estimated average glucose) is a calculated value from HgbA1c and is practice representative of the average blood glucose level in the last 2-3 month period. Performed By: #### 5 5454-3 ####[facility] LABIA [id number] [place] [id number] [place] HbA1c (Bld) [Mass fraction] 7.0 % High 4.3-5.6 [facility] Comment on above: Order Comment: Deana borjas Type: BLOOD SPECIMENOrdering Facility: [facility] Address: [address] [place] [address] Result Comment: Margareth ican Diabetes Association guidelines indicate that patients with HgbA1c in the range 5.7-6.4% are at increased risk for development of diabetes, and intervention by lifestyle modification may be beneficial. HgbA1c greater or equal to 6.5% is considered diagnostic of diabetes. Performed By: #### 5 5454-3 ####[facility] LABCLIA [id number] [place] [address] [place] Lipid 1996 panelon 5 Cholesterol [Mass/Vol] 193 mg/dL Normal <200 [facility] Comment on above: Order Comment: Deana suad Type: BLOOD SPECIMENOrdering Facility: [facility] Address: [address] [place] [address] Result Comment: <200 mg/dL, Desirable 200-239 mg/dL, Borderline high >239 mg/dL, High Performed By: #### 2 4331-1, 81339-6, 6-3 ####[facility] LABCLIA [id number] [place] [address] [place] Cholesterol in HDL [Mass/Vol] 44 mg/dL Normal >39 [facility] Comment on above: Order Comment: Nicelizabeth borjas Type: BLOOD SPECIMENOrdering Facility: [facility] Address: [address] [place] [address] Result Comment: 40-5 9 mg/dL, Acceptable >59 mg/dL, High: Negative risk factor for coronary heart disease <40 mg/dL, Low: Positive risk factor for coronary heart disease Performed By: #### 2 4331-1, 19297-1, 3016-3 ####[facility] LABCLIA [id number] [address] [address] [place] Cholesterol in LDL [Mass/Vol] 123 mg/dL High <100 [facility] Comment on above: Order Comment: Deana borjas Type: BLOOD SPECIMENOrdering Facility: [facility] Address: [address] [place] [address] Result Comment: <100 mg/dL, Optimal 100-129 mg/dL, Near optimal/above optimal 130-159 mg/dL, Borderline high 160-189 mg/dL, High >189 mg/dL, Very high Secondary prevention optimal LDL Cholesterol levels are recommended to be < 70 mg/dL Performed By: #### 2 4331-1, 80539-9, 3015-3 ####[facility] LABCLIA [id number] [address] [address] [place] Cholesterol in LDL/Cholesterol in HDL [Mass ratio] 2.80 {ratio} High <2.54 [facility] Comment on above: Order Comment: Deana borjas Type: BLOOD SPECIMENOrdering Facility: [facility] Address: [address] [place] [address] Result Comment: Refe rence: 1. National Cholesterol Education Program ATP III Guideline At-A-Glance Quick Desk Reference: National Heart, Lung, and Blood [place]. National Institutes of Health. 2001: NIH Publication No. 01-3305. 2. An International Atherosclerosis Society position paper: global recommendations for the management of dyslipidemia: executive summary, Atherosclerosis. 2014: 232(2):410-413. Performed By: #### 2 4331-1, 04324-2, 3015-3 ####[facility] LABCLIA [id number] [address] [address] [place] Cholesterol in VLDL [Mass/Vol] 26 mg/dL Normal <30 [facility] Comment on above: Order Comment: Deana borjas Type: BLOOD SPECIMENOrdering Facility: [facility] Address: [address] [place] [address] Performed By: #### 2 4331-1, 70537-7, 3015-3 ####[facility] LABCLIA [id number] [address] [address] [place] Cholesterol non HDL [Mass/Vol] 149 mg/dL High <130 [facility] Comment on above: Order Comment: Speci men Type: BLOOD SPECIMENOrdering Facility: [facility] Address: [address] [place] [address] Result Comment: <130 mg/dL, Optimal 130-159 mg/dL, Near optimal/above optimal 160-189 mg/dL, Borderline high 190-219 mg/dL, High >219 mg/dL, Very high Secondary prevention optimal non HDL Cholesterol levels are recommended to be <100 mg/dL Performed By: #### 2 4331-1, 17531-0, 6-3 ####[facility] LABCLIA [id number] [place] [address] [place] Cholesterol.total/Alta sterol in HDL [Mass ratio] 4.39 {ratio} Normal <5.10 [facility] Comment on above: Order Comment: Speci men Type: BLOOD SPECIMENOrdering Facility: [facility] Address: [address] [place] [address] Performed By: #### 2 4331-1, 29807-9, 3015-3 ####[facility] LABCLIA [id number] [place] [address] [place] FASTING TIME 12 hrs Normal [facility] Comment on above: Order Comment: Speci men Type: BLOOD SPECIMENOrdering Facility: [facility] Address: [address] [place] [address] Performed By: #### 2 4331-1, 39415-0, 3015-3 ####[facility] LABCLIA [id number] [place] [id number] [place] Triglyceride [Mass/Vol] 129 mg/dL Normal <150 [facility] Comment on above: Order Comment: Speci men Type: BLOOD SPECIMENOrdering Facility: [facility] Address: [address] [place] [address] Result Comment: <150 mg/dL, Normal 150-199 mg/dL, Borderline high 200-499 mg/dL, High >499 mg/dL, Very high Performed By: #### 2 4331-1, 90893-7, 3016-3 ####[facility] LABCLIA [id number] [place] [id number] [place] TSH SerPl-aCncon 05-23-2024 TSH Qn 0.183 m[IU]/L Low 0.270-4.200 [facility] Comment on above: Order Comment: Speci men Type: BLOOD SPECIMENOrdering Facility: [facility] Address: [address] [place] [address] Performed By: #### 2 4331-1, 49517-0, 3016-3 ####[facility] LABCLIA [id number] [address] [place] CNOVon 11-28-2023 CNOV Office Visit ([facility] ) LINDSAY ACUNA ([id number]) 1945 F Date Time Provider Department 11/28/23 9:40 [facility] visit today, we recorded [...] due for colonoscopy; will contact GI in [place] Lipid: Does not watch diet or exercise. [...] (more content not included)... Normal [facility] Comprehensive metabolic 2000 panelon 11-27-2023 Albumin [Mass/Vol] 4.1 g/dL Normal 3.9-4.9 [facility] Comment on above: Order Comment: Speci men Type: BLOOD SPECIMENOrdering Facility: [facility] Address: [address] [place] [address] Performed By: #### 3 016-3, 53190-0, 73646-3 ####[facility] LABCLIA [id number] [facility] [id number] [address] [place] ALP [Catalytic activity/Vol] 86 U/L Normal 34-123 [facility] Comment on above: Order Comment: Speci men Type: BLOOD SPECIMENOrdering Facility: [facility] Address: [address] [place] [address] Performed By: #### 3 016-3, 62945-1, 11516-2 ####[facility] LABCLIA [id number] [place] [address] [place] ALT [Catalytic activity/Vol] 13 U/L Normal 7-38 [facility] Comment on above: Order Comment: Speci men Type: BLOOD SPECIMENOrdering Facility: [facility] Address: [address] [place] [address] Performed By: #### 3 016-3, 69800-4, ####[facility] LABCLIA [id number] [place] [address] [place] Anion gap [Moles/Vol] 10 mmol/L Normal 8-15 [facility] Comment on above: Order Comment: Speci men Type: BLOOD SPECIMENOrdering Facility: [facility] Address: [address] [place] [address] Performed By: #### 3 016-3, 79913-8, ####[facility] LABCLIA [id number] [place] [address] [place] AST [Catalytic activity/Vol] 21 U/L Normal 13-35 [facility] Comment on above: Order Comment: Speci men Type: BLOOD SPECIMENOrdering Facility: [facility] Address: [address] [place] [address] Performed By: #### 3 016-3, 14653-4, 14922-5 ####[facility] LABCLIA [id number] [place] [address] [place] Bilirubin [Mass/Vol] 0.5 mg/dL Normal 0.2-1.3 [facility] Comment on above: Order Comment: Speci men Type: BLOOD SPECIMENOrdering Facility: [facility] Address: [address] [place] [address] Performed By: #### 3 016-3, 58549-4, 74819-9 ####[facility] LABCLIA [id number] [place] [address] [place] Calcium [Mass/Vol] 9.7 mg/dL Normal 8.5-10.2 [facility] Comment on above: Order Comment: Speci men Type: BLOOD SPECIMENOrdering Facility: [facility] Address: [address] [place] [address] Performed By: #### 3 016-3, 98622-5, 99225-8 ####[facility] LABCLIA [id number] [place] [address] [place] Chloride [Moles/Vol] 108 mmol/L High 98-107 [facility] Comment on above: Order Comment: Speci men Type: BLOOD SPECIMENOrdering Facility: [facility] Address: [address] [place] [address] Performed By: #### 3 016-3, 82638-2, 89310-0 ####[facility] LABIA [id number] [place] [address] [place] CO2 [Moles/Vol] 23 mmol/L Normal 22-30 [facility] Comment on above: Order Comment: Speci men Type: BLOOD SPECIMENOrdering Facility: [facility] Address: [address] [place] [address] Performed By: #### 3 016-3, 09221-5, 96650-2 ####[facility] LABCLIA [id number] [place] [address] [place] Creatinine [Mass/Vol] 1.37 mg/dL High 0.58-0.96 [facility] Comment on above: Order Comment: Speci men Type: BLOOD SPECIMENOrdering Facility: [facility] Address: [address] [place] [address] Performed By: #### 3 016-3, 30909-2, 74676-4 ####[facility] LABCLIA [id number] [place] [address] [place] Creatinine and Glomerular filtration rate.predicted panel (S/P/Bld) 39 mL/min/1.73m??? Low >=60 [facility] Comment on above: Order Comment: Deana borjas Type: BLOOD SPECIMENOrdering Facility: [facility] Address: [address] [place] [address] Result Comment: Nancy mated Glomerular Filtration Rate [...] actual GFR. Performed By: #### 3 016-3, 87357-4, 54209-1 ####[facility] LABIA [id number] [place] [address] [place] Glucose [Mass/Vol] 77 mg/dL Normal 74-99 [facility] Comment on above: Order Comment: Deana borjas Type: BLOOD SPECIMENOrdering Facility: [facility] Address: [address] [place] [address] Result Comment: The [place] Diabetes Association (ADA) provides guidance for [...] Standards of Medical Care in Diabetes 2016, [place] Diabetes Association. Diabetes Care. 2016.39(Suppl 1). Performed By: #### 3 016-3, 34947-1, 99269-2 ####[facility] LABCLIA [id number] [facility] [address] [address] [place] Potassium [Moles/Vol] 4.4 mmol/L Normal 3.7-5.1 [facility] Comment on above: Order Comment: Speci men Type: BLOOD SPECIMENOrdering Facility: [facility] Address: [address] [place] [address] Performed By: #### 3 016-3, , ####[facility] LABCLIA [id number] [place] [id number] [place] Protein [Mass/Vol] 6.6 g/dL Normal 6.3-8.0 [facility] Comment on above: Order Comment: Speci men Type: BLOOD SPECIMENOrdering Facility: [facility] Address: [address] [place] [address] Performed By: #### 3 016-3, , ####[facility] LABCLIA [id number] [place] [id number] [place] Sodium [Moles/Vol] 141 mmol/L Normal 136-144 [facility] Comment on above: Order Comment: Speci men Type: BLOOD SPECIMENOrdering Facility: [facility] Address: [address] [place] [address] Performed By: #### 3 016-3, , ####[facility] LABCLIA [id number] [facility] [address] [address] [place] Urea nitrogen [Mass/Vol] 21 mg/dL Normal 7-21 [facility] Comment on above: Order Comment: Speci men Type: BLOOD SPECIMENOrdering Facility: [facility] Address: [address] [place], [place] [address] Performed By: #### 3 016-3, 02636-6, 41315-1 ####[facility] LABCLIA [id number] [address] [place] HbA1c (Bld)on 11-27-2023 Average glucose Estimated from glycated hemoglobin (Bld) [Mass/Vol] 166 mg/dL Normal [facility] Comment on above: Order Comment: Deana borjas Type: BLOOD SPECIMENOrdering Facility: [facility] Address: [address] [place] [address] Result Comment: eAG: (Estimated average glucose) is a calculated value from HgbA1c and is practice representative of the average blood glucose level in the last 2-3 month period. Performed By: #### 5 5454-3 ####[facility] LABCLIA [id number] [address] [place] HbA1c (Bld) [Mass fraction] 7.4 % High 4.3-5.6 [facility] Comment on above: Order Comment: Deana borjas Type: BLOOD SPECIMENOrdering Facility: [facility] Address: [address] [place] [address] Result Comment: [place] Diabetes Association guidelines indicate that patients with HgbA1c in the range 5.7-6.4% are at increased risk for development of diabetes, and intervention by lifestyle modification may be beneficial. HgbA1c greater or equal to 6.5% is considered diagnostic of diabetes. Performed By: #### 5 5454-3 ####[facility] LABCLIA [id number] [place] [id number] [place] Lipid 1996 panelon 4 Cholesterol [Mass/Vol] 156 mg/dL Normal <200 [facility] Comment on above: Order Comment: Deana borjas Type: BLOOD SPECIMENOrdering Facility: [facility] Address: [address] [place] [address] Result Comment: <200 mg/dL, Desirable 200-239 mg/dL, Borderline high >239 mg/dL, High Performed By: #### 3 016-3, 01606-1, 71679-5 ####[facility] LABCLIA [id number] [place] [address] [place] Cholesterol in HDL [Mass/Vol] 41 mg/dL Normal >39 [facility] Comment on above: Order Comment: Speci men Type: BLOOD SPECIMENOrdering Facility: [facility] Address: [facility] [place] [address] Result Comment: 40-5 9 mg/dL, Acceptable >59 mg/dL, High: Negative risk factor for coronary heart disease <40 mg/dL, Low: Positive risk factor for coronary heart disease Performed By: #### 3 016-3, 14570-2, 01140-8 ####[facility] LABCLIA [id number] [address] Cholesterol in LDL [Mass/Vol] 85 mg/dL Normal <100 [facility] Comment on above: Order Comment: Deana suad Type: BLOOD SPECIMENOrdering Facility: [facility] Address: [address] [place] [address] Result Comment: <100 mg/dL, Optimal 100-129 mg/dL, Near optimal/above optimal 130-159 mg/dL, Borderline high 160-189 mg/dL, High >189 mg/dL, Very high Secondary prevention optimal LDL Cholesterol levels are recommended to be < 70 mg/dL Performed By: #### 3 016-3, 20555-9, 87177-3 ####[facility] LABCLIA [id number] [address] Cholesterol in LDL/Cholesterol in HDL [Mass ratio] 2.07 {ratio} Normal <2.54 [facility] Comment on above: Order Comment: Deana borjas Type: BLOOD SPECIMENOrdering Facility: [facility] Address: [address] [place] [address] Result Comment: Chong daniel: 1. National Cholesterol Education Program ATP III Guideline At-A-Glance Quick Desk Reference: National Heart, Lung, and Blood [place]. National Institutes of Health. 2001: NIH Publication No. 01-3305. 2. An International Atherosclerosis Society position paper: global recommendations for the management of dyslipidemia: executive summary, Atherosclerosis. 2014: 232(2):410-413. Performed By: #### 3 016-3, 73638-7, 59142-9 ####[facility] LABCLIA [id number] [place] [address] [place] Cholesterol in VLDL [Mass/Vol] 30 mg/dL High <30 [facility] Comment on above: Order Comment: Speci men Type: BLOOD SPECIMENOrdering Facility: [facility] Address: [address] [place] [address] Performed By: #### 3 016-3, 92431-1, 02221-5 ####[facility] LABCLIA [id number] [place] [address] [place] Cholesterol non HDL [Mass/Vol] 115 mg/dL Normal <130 [facility] Comment on above: Order Comment: Speci men Type: BLOOD SPECIMENOrdering Facility: [facility] Address: [address] [place] [address] Result Comment: <130 mg/dL, Optimal 130-159 mg/dL, Near optimal/above optimal 160-189 mg/dL, Borderline high 190-219 mg/dL, High >219 mg/dL, Very high Secondary prevention optimal non HDL Cholesterol levels are recommended to be <100 mg/dL Performed By: #### 3 016-3, 81864-8, 71288-8 ####[facility] LABCLIA [id number] [place] [address] [place] Cholesterol.total/Alta sterol in HDL [Mass ratio] 3.80 {ratio} Normal <5.10 [facility] Comment on above: Order Comment: Speci men Type: BLOOD SPECIMENOrdering Facility: [facility] Address: [address] [place] [address] Performed By: #### 3 016-3, 82778-6, ####[facility] LABCLIA [id number] [place] [id number] [place] FASTING TIME 12 hrs Normal [facility] Comment on above: Order Comment: Speci men Type: BLOOD SPECIMENOrdering Facility: [facility] Address: [address] [place] [address] Performed By: #### 3 016-3, 65746-2, 66482-9 ####[facility] LABCLIA [id number] [address] [place] Triglyceride [Mass/Vol] 148 mg/dL Normal <150 C [facility] Comment on above: Order Comment: Speci men Type: BLOOD SPECIMENOrdering Facility: [facility] Address: [address] [place] [address] Result Comment: <150 mg/dL, Normal 150-199 mg/dL, Borderline high 200-499 mg/dL, High >499 mg/dL, Very high Performed By: #### 3 016-3, 45581-2, 53425-7 ####[facility] LABCLIA [id number] [place] [address] [place] TSH SerPl-aCncon 11-27-2023 TSH Qn 1.870 m[IU]/L Normal 0.270-4.200 [facility] Comment on above: Order Comment: Speci men Type: BLOOD SPECIMENOrdering Facility: [facility] Address: [address] [place] [address] Performed By: #### 3 016-3, 17987-9, 91131-5 ####[facility] LABCLIA [id number] [address] [place] CNOVon 10-10-2023 CNOV Office Visit ([facility] ) LINDSAY ACUNA ([id number]) 1945 F Date Time Provider Department 10/10/23 7:30 AM DAVID DUPREE [facility] During your visit today, we recorded the following information about you: Temperature Pulse Respiration Blood pressure 97.5 degrees 58/minute 18/minute 128/82 Weight 82.1 kg David Dupree APRN.GARRETT 10/10/2023 8:11 AM Signed Subjective HPI Nontoxic-appearing [...] 1 tablet by mouth once daily. lancets ([employer] SystemsTOUCH DELICA PLUS LANCET) 30 gauge Test blood sugars 1 time daily. Dx: Type 2 DM Controlled E11.9. Insulin: no Chlorhexidine Gluconate (PERIDEX) 0.12 % solution Use 15 mL as instructed twice daily. Rinse around mouth for 30 seconds then expectorate blood sugar diagnostic ([employer] SystemsTOUCH ULTRA TEST STRIP) test strip Use to [...] (more content not included)... Normal [facility] CNOVon 09-29-2023 CNOV Office Visit ([facility] ) LINDSAY ACUNA ([id number]) 1945 F Date Time Provider Department 09/29/23 2:15 PM RADHA LEVINE [facility] During your visit today, we recorded the following information about you: Temperature Pulse Respiration Blood pressure 97.8 degrees 54/minute 18/minute 148/91 Weight 84 kg Radha Levine APRN.FOUNDER PRESIDENT [employer] CEO 09/29/2023 6:12 PM Signed This note was created using NoteWriter. Subjective Lindsay Acuna is a 77 year old female. 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 Denies fever or chills Denies malaise or fatigue Denies new lotions, soaps, or medicines States that she was working out in the garden the same day the rash erupted. The history is provided by the patient. No community dietitian was used. Rash This is a new [...] (more content not included)... Normal [facility] Glucose,Bedsideon 04-16-2019 Glucose [Mass/Vol] 161 mg/dL High 70-100 [facility] Comment on above: Result Comment: Test performed by glucose meter. Results may be 10%-15% lower than serum/plasma values. (CLIA ID [id number]) Performed By: #### B GLU #### [address] [address] Surgical Pathologyon 019 Surgical Pathology [id number] [facility] PATHOLOGY AND LABORATORY MEDICINE [address] [place] [address] FINAL SURGICAL PATHOLOGY REPORT ___ NAME: LINDSAY ACUNA : 1945 73 Y F BILLING NO.: [id number] LOCATION: 1XEO PROCEDURE 01/09/2019 DATE: SURGEON: SANTIAGO [...] by the clinical laboratories of [facility]. They have not been cleared by [...] negativity on decalcified specimens. Professional Performing Location: [address] [address]. DEPARTMENT OF PATHOLOGY AND LABORATORY MEDICINE [place], [place] [address] Normal [facility] .Auto Diffon 08-22-2018 Ammonia mass conc (P) 1.10 10 3/mcL High 0.15-1.00 [facility] ([place]) Comment on above: Performed By: #### Roby VALVERDE, GFR #### [address] [address] Basophils #/vol (Bld) 0.00 10 3/mcL Normal 0.00-0.19 [facility] ([place]) Comment on above: Performed By: #### Roby VALVERDE, GFR #### [address] [address] Basophils/100 WBC (Bld) 0.3 % Normal 0.0-2.5 A [facility] ([place]) Comment on above: Performed By: #### Roby VALVERDE, GFR #### [address] [address] Eosinophils #/vol (Bld) 0.00 10 3/mcL Normal 0.00-0.40 [facility] ([place]) Comment on above: Performed By: #### Roby MP, GFR #### [address] [address] Eosinophils/100 WBC (Bld) 0.2 % Normal 0.0-7.0 [facility] ([place]) Comment on above: Performed By: #### Roby MP, GFR #### [address] [address] Lymphocytes #/vol (Bld) 2.20 10 3/mcL Normal 0.77-3.85 [facility] ([place]) Comment on above: Performed By: #### B MP, GFR #### [address] [address] Lymphocytes/100 WBC (Bld) 20.5 % Normal 10.0-50.0 [facility] ([place]) Comment on above: Performed By: #### B MP, GFR #### [address] [address] Monocytes/100 WBC (Bld) 10.5 % Normal 1.7-13.0 A [facility] ([place]) Comment on above: Performed By: #### B MP, GFR #### [address] [address] Neutrophils/100 WBC (Bld) 68.5 % Normal 37.0-80.0 [facility] ([place]) Comment on above: Performed By: #### B MP, GFR #### [address] [address] .GFRon 08-22-2018 GFR Non- 33 ml/min/1.73sqm Normal [facility] ([place]) Comment on above: Result Comment: GFR [...] Performed By: #### B MP, GFR #### [address] [address] #### CBC, ADIFF, ANEU #### [place] [address] [address] GFR 40 ml/min/1.73sqm Normal [facility] ([place]) Comment on above: Result Comment: GFR Population [...] Performed By: #### B MP, GFR #### [place] [address] #### CBC, ADIFF, ANEU #### [address] [address] .NEUABSon 08-22-2018 Neutrophils #/vol (Bld) 7.40 10 3/mcL High 2.85-6.16 [facility] ([place]) Comment on above: Performed By: #### B MP, GFR #### [place] [address] BMPon 08-22-2018 Calcium mass conc 8.3 mg/dL Low 8.4-10.2 [facility] ([place]) Comment on above: Performed By: #### B MP, GFR #### [place] [address] #### CBC, ADIFF, ANEU #### [address] [address] Chloride molar conc 104 mmol/L Normal 98-107 [facility] ([place]) Comment on above: Performed By: #### B MP, GFR #### [place] [address] #### CBC, ADIFF, ANEU #### [address] [address] CO2 molar conc 25 mmol/L Normal 23-31 [facility] ([place]) Comment on above: Performed By: #### B MP, GFR #### [place] [address] #### CBC, ADIFF, ANEU #### [address] [address] Creatinine mass conc 1.53 mg/dL High 0.55-1.02 [facility] ([place]) Comment on above: Performed By: #### B MP, GFR #### [place] [address] #### CBC, ADIFF, ANEU #### [address] [address] Electrolyte Balance 10.0 mEq/L Normal [facility] ([place]) Comment on above: Performed By: #### B MP, GFR #### [place] [address] #### CBC, ADIFF, ANEU #### [address] [address] Glucose mass conc 149 mg/dL High 83-110 [facility] ([place]) Comment on above: Performed By: #### B MP, GFR #### [place] [address] #### CBC, ADIFF, ANEU #### [address] [address] Potassium molar conc 4.3 mmol/L Normal 3.5-5.1 [facility] ([place]) Comment on above: Performed By: #### B MP, GFR #### [place] [address] #### CBC, ADIFF, ANEU #### [address] [address] Sodium molar conc 139 mmol/L Normal 136-145 [facility] ([place]) Comment on above: Performed By: #### B MP, GFR #### [place] [address] #### CBC, ADIFF, ANEU #### [address] [address] Urea nitrogen mass conc 32 mg/dL High 7-18 A [facility] ([place]) Comment on above: Performed By: #### B MP, GFR #### [address] [address] #### CBC, ADIFF, ANEU #### [address] [address] Urea nitrogen/Creatinine mass ratio 21 ratio Normal 7-27 [facility] ([place]) Comment on above: Performed By: #### B MP, GFR #### [address] [address] #### CBC, ADIFF, ANEU #### [address] [address] CBCon 08-22-2018 Erythrocyte distribution width Ratio (RBC) 12.6 % Normal 11.5-14.5 [facility] ([place]) Comment on above: Performed By: #### B MP, GFR #### [place] [address] Hematocrit Volume Fraction (Bld) 27.5 % Low 37.0-47.0 [facility] ([place]) Comment on above: Performed By: #### B MP, GFR #### [place] [address] Hemoglobin mass conc (Bld) 9.2 G/dL Low 12.0-16.0 [facility] ([place]) Comment on above: Performed By: #### B MP, GFR #### [place] [address] MCH Entitic mass (RBC) 30.1 pg Normal 27.0-31.2 [facility] ([place]) Comment on above: Performed By: #### B MP, GFR #### [place] [address] MCHC mass conc (RBC) 33.5 G/dL Normal 33.0-37.0 [facility] ([place]) Comment on above: Performed By: #### B MP, GFR #### [place] [address] MCV Entitic volume (RBC) 89.8 fL Normal 80.0-94.0 [facility] ([place]) Comment on above: Performed By: #### B MP, GFR #### [place] [address] Platelet mean volume Entitic volume (Bld) 9.3 fL Normal 7.4-10.4 [facility] ([place]) Comment on above: Performed By: #### B MP, GFR #### [place] [address] Platelets #/vol (Bld) 224 10 3/mcL Normal 130-400 A [facility] ([place]) Comment on above: Performed By: #### B MP, GFR #### [place] [address] RBC #/vol (Bld) 3.06 10 6/mcL Low 4.20-5.40 [facility] ([place]) Comment on above: Performed By: #### B MP, GFR #### [place] [address] WBC #/vol (Bld) 10.80 10 3/mcL Normal 4.60-10.80 [facility] ([place]) Comment on above: Performed By: #### B MP, GFR #### [place] [address] XR KNEE 1 OR 2 VIEWS RIGHTon [...] AM Sign Date: 08/21/2018 9:55:37 AM Normal [facility] ([place]) CT KNEE W/O CONTRAST RIGHTon 08-09-2018 CT [...] PM Sign Date: 08/09/2018 5:04:12 PM Normal [facility] ([place]) .Auto Diffon 08-06-2018 Ammonia mass conc (P) 0.80 10 3/mcL Normal 0.15-1.00 [facility] ([place]) Comment on above: Performed By: #### C DORY SMITH ANEU #### [place] [address] #### A1C #### [address] [address] Basophils #/vol (Bld) 0.10 10 3/mcL Normal 0.00-0.19 [facility] ([place]) Comment on above: Performed By: #### C DORY SMITH ANEU #### [place] [address] #### A1C #### [address] [address] Basophils/100 WBC (Bld) 0.6 % Normal 0.0-2.5 A [facility] ([place]) Comment on above: Performed By: #### C DORY SMITH ANEU #### [place] [address] #### A1C #### [facility] [address] [place], [place] [address] Eosinophils #/vol (Bld) 0.20 10 3/mcL Normal 0.00-0.40 [facility] ([place]) Comment on above: Performed By: #### C DORY SMITH, ANEU #### [address] [address] #### A1C #### [address] [address] Eosinophils/100 WBC (Bld) 1.7 % Normal 0.0-7.0 [facility] ([place]) Comment on above: Performed By: #### C DORY SMITH, ANEU #### [address] [address] #### A1C #### [address] [address] Lymphocytes #/vol (Bld) 1.90 10 3/mcL Normal 0.77-3.85 [facility] ([place]) Comment on above: Performed By: #### DORY SOTO ANEU #### [place] [address] #### A1C #### [address] [address] Lymphocytes/100 WBC (Bld) 20.8 % Normal 10.0-50.0 [facility] ([place]) Comment on above: Performed By: #### C DORY SMITH ANEU #### [address] [address] #### A1C #### [address] [address] Monocytes/100 WBC (Bld) 9.3 % Normal 1.7-13.0 A [facility] ([place]) Comment on above: Performed By: #### C DORY SMITH, ANEU #### [address] [address] #### A1C #### [address] [address] Neutrophils/100 WBC (Bld) 67.6 % Normal 37.0-80.0 [facility] ([place]) Comment on above: Performed By: #### C DORY SMITH, [facility] #### [place] [address] [place], [place] [address] #### A1C #### [address] [address] .GFRon 08-06-2018 GFR 51 ml/min/1.73sqm Normal [facility] ([place]) Comment on above: Result Comment: GFR Population [...] Performed By: #### B MP, GFR #### [address] [address] GFR Non- 42 ml/min/1.73sqm Normal [facility] ([place]) Comment on above: Result Comment: GFR Population [...] Performed By: #### B MP, GFR #### [address] [address] .NEUABSon 08-06-2018 Neutrophils #/vol (Bld) 6.20 10 3/mcL High 2.85-6.16 [facility] ([place]) Comment on above: Performed By: #### C BC, ADIFF, ANEU #### [address] [address] #### A1C #### [address] [address] A1Con 08-06-2018 Hemoglobin A1c/Hemoglobin.total mass fraction (Bld) 7.9 % High 4.5-6.2 [facility] ([place]) Comment on above: Performed By: #### C BC, ADIFF, ANEU #### [address] [address] #### A1C #### [address] [address] BMPon 08-06-2018 Calcium mass conc 9.2 mg/dL Normal 8.4-10.2 [facility] ([place]) Comment on above: Performed By: #### B MP, GFR #### [place] [address] Chloride molar conc 105 mmol/L Normal 98-107 [facility] ([place]) Comment on above: Performed By: #### B MP, GFR #### [place] [address] CO2 molar conc 27 mmol/L Normal 23-31 [facility] ([place] Comment on above: Performed By: #### B MP, GFR #### [address] [address] Creatinine mass conc 1.25 mg/dL High 0.55-1.02 [facility] ([place]) Comment on above: Performed By: #### B MP, GFR #### [address] [address] Electrolyte Balance 11.0 mEq/L Normal [facility] ([place] Comment on above: Performed By: #### B MP, GFR #### [address] [address] Glucose mass conc 70 mg/dL Low 83-110 [facility] ([place] Comment on above: Performed By: #### B MP, GFR #### [address] [address] Potassium molar conc 5.0 mmol/L Normal 3.5-5.1 [facility] ([place]) Comment on above: Performed By: #### B MP, GFR #### [address] [address] Sodium molar conc 143 mmol/L Normal 136-145 [facility] ([place]) Comment on above: Performed By: #### B MP, GFR #### [place] [address] Urea nitrogen mass conc 26 mg/dL High 7-18 A [facility] ([place] Comment on above: Performed By: #### B MP, GFR #### [place] [address] Urea nitrogen/Creatinine mass ratio 21 ratio Normal 7-27 [facility] ([place] Comment on above: Performed By: #### B MP, GFR #### [place] [address] CBCon 08-06-2018 Erythrocyte distribution width Ratio (RBC) 12.2 % Normal 11.5-14.5 [facility] ([place]) Comment on above: Performed By: #### C DORY SMITH, ANEU #### [address] [address] #### A1C #### [address] [address] Hematocrit Volume Fraction (Bld) 34.6 % Low 37.0-47.0 [facility] ([place] Comment on above: Performed By: #### C BCDORY, ANEU #### [address] [address] #### A1C #### [place] [address] Hemoglobin mass conc (Bld) 11.7 G/dL Low 12.0-16.0 [facility] ([place] Comment on above: Performed By: #### C BC ADIFF, ANEU #### [address] [address] #### A1C #### [place] [address] MCH Entitic mass (RBC) 30.6 pg Normal 27.0-31.2 [facility] ([place]) Comment on above: Performed By: #### C DORY SMITH, ANEU #### [address] [address] #### A1C #### [place] [address] MCHC mass conc (RBC) 33.7 G/dL Normal 33.0-37.0 [facility] ([place]) Comment on above: Performed By: #### C DORY SMITH, ANEU #### [address] [address] #### A1C #### [place] [address] MCV Entitic volume (RBC) 90.9 fL Normal 80.0-94.0 [facility] ([place] Comment on above: Performed By: #### C DORY SMITH, ANEU #### [place] [address] #### A1C #### [place] [address] Platelet mean volume Entitic volume (Bld) 8.8 fL Normal 7.4-10.4 [facility] ([place] Comment on above: Performed By: #### C DORY SMITH, ANEU #### [place] [address] #### A1C #### [place] [address] Platelets #/vol (Bld) 355 10 3/mcL Normal 130-400 A [facility] ([place]) Comment on above: Performed By: #### C DORY SMITH, ANEU #### [address] [address] #### A1C #### [address] [address] RBC #/vol (Bld) 3.81 10 6/mcL Low 4.20-5.40 [facility] ([place]) Comment on above: Performed By: #### C BC, ADIFF, ANEU #### [place] [address] [place], [place] [address] #### A1C #### [address] [address] WBC #/vol (Bld) 9.20 10 3/mcL Normal 4.60-10.80 [facility] ([place]) Comment on above: Performed By: #### C BC, ADIFF, ANEU #### [place] [address] [place], [place] [address] #### A1C #### [address] [address] Vital Signs Date Time Vital Sign Value Performing Clinician Facility 10-02-2024 09:21-0400 Body height 167.[address] Kameron Caruso MD Work Phone: [facility] 10-02-2024 09:21-0400 Diastolic blood pressure 71 mm[Hg] Dr. Kameron Caruso MD Work Phone: [facility] 10-02-2024 09:21-0400 Heart rate 77 /min Dr. Kameron Caruso MD Work Phone: [facility] 10-02-2024 09:21-0400 Respiratory rate 16 /min Dr. Kameron Caurso MD Work Phone: [facility] 10-02-2024 09:21-0400 Systolic blood pressure 111 mm[Hg] Dr. Kameron Caruso MD Work Phone: [facility] 09-09-2024 09:02-0400 Heart rate 100 /min SILVINO HA DO [facility] 09-09-2024 07:58-0400 Blood Pressure Cuff Size SILVINO HA DO [facility] 09-09-2024 07:58-0400 Blood Pressure Location SILVINO HA DO [facility] 09-09-2024 07:58-0400 Blood Pressure Method SILVINO SCHEATZLE DO [facility] 09-09-2024 07:58-0400 Body temperature 96.8 [degF] SILVION CIDATZLE DO [facility] 09-09-2024 07:58-0400 Diastolic Blood Pressure Non-Invasive 78 mm[Hg] SILVINO CIDATZLE DO [facility] 09-09-2024 07:58-0400 Heart rate 110 /min SILVINO CIDATZLE DO [facility] 09-09-2024 07:58-0400 Reason For Taking VItal Signs SILVINO CIDATZLE DO [facility] 09-09-2024 07:58-0400 Respiratory rate 16 /min SILVINO CIDATZLE DO [facility] 09-09-2024 07:58-0400 Systolic Blood Pressure Non-Invasive 122 mm[Hg] SILVINO CIDATZLE DO [facility] 09-09-2024 02:45-0400 Body temperature 97.7 [degF] SILVINO CIDATZLE DO [facility] 09-09-2024 02:45-0400 Diastolic Blood Pressure Non-Invasive 60 mm[Hg] SILVINO CIDATZLE DO [facility] 09-09-2024 02:45-0400 Heart rate 92 /min SILVINO CIDATZLE DO [facility] 09-09-2024 02:45-0400 Respiratory rate 16 /min SILVINO CIDATZLE DO [facility] 09-09-2024 02:45-0400 Systolic Blood Pressure Non-Invasive 108 mm[Hg] SILVINO PALAKATZLE DO [facility] 09-08-2024 22:28-0400 Blood Pressure Cuff Size SILVINO CIDATZLE DO [facility] 09-08-2024 22:28-0400 Blood Pressure Location SILVINO CIDATZLE DO [facility] 09-08-2024 22:28-0400 Blood Pressure Method SILVINO CIDATZLE DO [facility] 09-08-2024 22:28-0400 Body temperature 97.88 [degF] SILVINO CIDATZLE DO [facility] 09-08-2024 22:28-0400 Diastolic Blood Pressure Non-Invasive 54 mm[Hg] SILVINO CIDATZLE DO [facility] 09-08-2024 22:28-0400 Heart rate 92 /min SILVINO CIDATZLE DO [facility] 09-08-2024 22:28-0400 Reason For Taking VItal Signs SILVINO CIDATZLE DO [facility] 09-08-2024 22:28-0400 Respiratory rate 16 /min SILVINO CIDATZLE DO [facility] 09-08-2024 22:28-0400 Systolic Blood Pressure Non-Invasive 118 mm[Hg] SILVINO CIDATZLE DO [facility] 09-08-2024 18:21-0400 Heart rate 90 /min SILVINO CIDATZLE DO [facility] 09-08-2024 09:08-0400 Blood Pressure Cuff Size SILVINO CIDATZLE DO [facility] 09-08-2024 09:08-0400 Blood Pressure Location SILVINO CIDATZLE DO [facility] 09-08-2024 09:08-0400 Blood Pressure Method SILVINO CIDATZLE DO [facility] 09-08-2024 09:08-0400 Heart rate 114 /min SILVINO RADERLE DO [facility] 09-08-2024 09:08-0400 Reason For Taking VItal Signs SILVINO RADERLE DO [facility] 09-04-2024 10:54-0400 Body temperature 96.62 [degF] SILVINO CIDATZLE DO [facility] 09-03-2024 00:26-0400 Body temperature 97.34 [degF] SILVINO CIDATZLE DO [facility] 08-30-2024 22:54-0400 Body temperature 98.06 [degF] SILVINO CIDATZLE DO [facility] 08-26-2024 10:36-0400 Body weight 76 kg SILVINO RADERLE DO [facility] 08-19-2024 06:00-0400 Body weight 75.3 kg SILVINO CIDATZLE DO [facility] 08-15-2024 14:27-0400 Body height 170.2 cm SILVINO CIDATZLE DO [facility] 08-15-2024 14:27-0400 Body weight 75.4 kg SILVINO CIDATZLE DO [facility] 08-15-2024 14:27-0400 Body weight 26.03 kg/m2 SILVINO CIDATZLE DO [facility] 08-15-2024 09:02-0400 Diastolic blood pressure 69 mm[Hg] Prema Ramos MD Work Phone: [facility] 08-15-2024 09:02-0400 Systolic blood pressure 128 mm[Hg] Prema Ramos MD Work Phone: 2(451)809-143405 [place] [address] 08-15-2024 07:28-0400 Heart rate 86 /min Prema Ramos MD Work Phone: 9(248)346-532705 [place] [address] 08-15-2024 07:18-0400 Body temperature 97.3 [degF] Prema Ramos MD Work Phone: 3(941)[phone] [place] [address] 08-15-2024 07:18-0400 Respiratory rate 23 /min Prema Ramos MD Work Phone: 1(710)187-770205 [place] [address] 08-15-2024 07:18-0400 SaO2% (BldA) [Mass fraction] 95 % Prema Ramos MD Work Phone: 9(757)160-183205 [place] [address] 08-05-2024 08:00-0400 Body height 170.2 cm Prema Ramos MD Work Phone: 6(419)760-831605 [place] [address] 08-05-2024 08:00-0400 Body mass index (BMI) [Ratio] 26.94 kg/m2 Prema Ramos MD Work Phone: 7(275)506-580305 [place] [address] 08-05-2024 08:00-0400 Body weight 78.02 kg Prema Ramos MD Work Phone: 4(682)[phone] [place] [address] 08-02-2024 13:52-0400 Body temperature 98 [degF] Dr. Kameron Caruso MD Work Phone: [facility] 08-02-2024 13:52-0400 Diastolic blood pressure 91 mm[Hg] Dr. Kameron Caruso MD Work Phone: [facility] 08-02-2024 13:52-0400 Heart rate 109 /min Dr. Kameron Caruso MD Work Phone: [facility] 08-02-2024 13:52-0400 Respiratory rate 16 /min Dr. Kameron Caruso MD Work Phone: [facility] 08-02-2024 13:52-0400 SaO2% (BldA) [Mass fraction] 98 % Dr. Kameron Caruso MD Work Phone: [facility] 08-02-2024 13:52-0400 Systolic blood pressure 153 mm[Hg] Dr. Kameron Caruso MD Work Phone: [facility] 08-02-2024 12:46-0400 Body height 167.[address] Kameron Caruso MD Work Phone: [facility] 08-02-2024 12:46-0400 Body mass index (BMI) [Ratio] 26.6 kg/m2 Dr. Kameron Caruso MD Work Phone: [facility] 08-02-2024 12:46-0400 Body weight [address] Kameron Caruso MD Work Phone: [facility] 06-26-2024 09:39-0500 Body mass index (BMI) [Ratio] 27.25 kg/m2 Emma Sotomayor ELECTRONIC ORGAN TECHNICIAN.FOUNDER PRESIDENT AND CEO Work Phone: [facility] 06-26-2024 09:39-0500 Body weight 78.93 kg Emma Sotomayor ELECTRONIC ORGAN TECHNICIAN.FOUNDER PRESIDENT AND CEO Work Phone: [facility] 06-26-2024 09:39-0500 Diastolic blood pressure 88 mm[Hg] Emma Sotomayor ELECTRONIC ORGAN TECHNICIAN.FOUNDER PRESIDENT AND CEO Work Phone: [facility] 06-26-2024 09:39-0500 Heart rate 93 /min Emma Sotomayor ELECTRONIC ORGAN TECHNICIAN.FOUNDER PRESIDENT AND CEO Work Phone: [facility] 06-26-2024 09:39-0500 Respiratory rate 16 /min Emma Sotomayor ELECTRONIC ORGAN TECHNICIAN.FOUNDER PRESIDENT AND CEO Work Phone: [facility] 06-26-2024 09:39-0500 SaO2% (BldA) [Mass fraction] 98 % Emma Sotomayor ELECTRONIC ORGAN TECHNICIAN.FOUNDER PRESIDENT AND CEO Work Phone: [facility] 06-26-2024 09:39-0500 Systolic blood pressure 144 mm[Hg] Emma Sotomayor APRN.CNP Work Phone: [facility] 05-31-2024 08:56-0500 Diastolic blood pressure 84 mm[Hg] Kameron Caruso MD Work Phone: [facility] 05-31-2024 08:56-0500 Systolic blood pressure 136 mm[Hg] Kameron Caruso MD Work Phone: [facility] 05-31-2024 08:47-0500 Body mass index (BMI) [Ratio] 27.28 kg/m2 Kameron Caruso MD Work Phone: [facility] 05-31-2024 08:47-0500 Body weight 79 kg Kameron Caruso MD Work Phone: [facility] 05-31-2024 08:47-0500 Heart rate 100 /min Kameron Caruso MD Work Phone: [facility] 05-31-2024 08:47-0500 Respiratory rate 18 /min Kameron Caruso MD Work Phone: [facility] 11-28-2023 09:42-0400 Diastolic blood pressure 78 mm[Hg] Kameron Caruso MD Work Phone: [facility] 11-28-2023 09:42-0400 Systolic blood pressure 142 mm[Hg] Kameron Caruso MD Work Phone: [facility] 11-28-2023 09:41-0400 Body mass index (BMI) [Ratio] 27.82 kg/m2 Kameron Caruso MD Work Phone: [facility] 11-28-2023 09:41-0400 Body weight 80.56 kg Kameron Caruso MD Work Phone: [facility] 11-28-2023 09:41-0400 Heart rate 68 /min Kameron Caruso MD Work Phone: [facility] 11-28-2023 09:41-0400 Respiratory rate 18 /min Kameron Caruso MD Work Phone: [facility] 10-10-2023 07:31-0400 Body mass index (BMI) [Ratio] 28.35 kg/m2 [facility] ELECTRONIC ORGAN TECHNICIAN.FOUNDER PRESIDENT AND CEO Work Phone: [facility] 10-10-2023 07:31-0400 Body temperature 97.5 [degF] [facility] ELECTRONIC ORGAN TECHNICIAN.FOUNDER PRESIDENT AND CEO Work Phone: [facility] 10-10-2023 07:31-0400 Body weight 82.1 kg [facility] ELECTRONIC ORGAN TECHNICIAN.FOUNDER PRESIDENT AND CEO Work Phone: [facility] 10-10-2023 07:31-0400 Diastolic blood pressure 82 mm[Hg] David [facility] ELECTRONIC ORGAN TECHNICIAN.FOUNDER PRESIDENT AND CEO Work Phone: [facility] 10-10-2023 07:31-0400 Heart rate 58 /min David Claudyantonia ELECTRONIC ORGAN TECHNICIAN.FOUNDER PRESIDENT AND CEO Work Phone: [facility] 10-10-2023 07:31-0400 Respiratory rate 18 /min [facility] ELECTRONIC ORGAN TECHNICIAN.FOUNDER PRESIDENT AND CEO Work Phone: [facility] 10-10-2023 07:31-0400 SaO2% (BldA) [Mass fraction] 100 % David [facility] ELECTRONIC ORGAN TECHNICIAN.FOUNDER PRESIDENT AND CEO Work Phone: [facility] 10-10-2023 07:31-0400 Systolic blood pressure 128 mm[Hg] David [facility] ELECTRONIC ORGAN TECHNICIAN.FOUNDER PRESIDENT AND CEO Work Phone: [facility] 09-29-2023 14:14-0400 Body mass index (BMI) [Ratio] 29 kg/m2 Radha Levine ELECTRONIC ORGAN TECHNICIAN.FOUNDER PRESIDENT AND CEO Work Phone: [facility] 09-29-2023 14:14-0400 Body temperature 97.81 [degF] Radha Levine ELECTRONIC ORGAN TECHNICIAN.FOUNDER PRESIDENT AND CEO Work Phone: [facility] 09-29-2023 14:14-0400 Body weight 84 kg Radha Levine ELECTRONIC ORGAN TECHNICIAN.FOUNDER PRESIDENT AND CEO Work Phone: [facility] 09-29-2023 14:14-0400 Diastolic blood pressure 91 mm[Hg] Radha Levine ELECTRONIC ORGAN TECHNICIAN.FOUNDER PRESIDENT AND CEO Work Phone: [facility] 09-29-2023 14:14-0400 Heart rate 54 /min Radha Levine ELECTRONIC ORGAN TECHNICIAN.FOUNDER PRESIDENT AND CEO Work Phone: [facility] 09-29-2023 14:14-0400 Respiratory rate 18 /min Radha Levine ELECTRONIC ORGAN TECHNICIAN.FOUNDER PRESIDENT AND CEO Work Phone: [facility] 09-29-2023 14:14-0400 SaO2% (BldA) [Mass fraction] 99 % Radha Levine ELECTRONIC ORGAN TECHNICIAN.FOUNDER PRESIDENT AND CEO Work Phone: [facility] 09-29-2023 14:14-0400 Systolic blood pressure 148 mm[Hg] Radha Levine ELECTRONIC ORGAN TECHNICIAN.FOUNDER PRESIDENT AND CEO Work Phone: [facility] 05-27-2022 09:42-0500 Body weight 83.83 kg Kameron Caruso MD Work Phone: [facility] 05-27-2022 09:42-0500 Diastolic blood pressure 84 mm[Hg] Kameron Caruso MD Work Phone: [facility] 05-27-2022 09:42-0500 Heart rate 68 /min Kameron Caruso MD Work Phone: [facility] 05-27-2022 09:42-0500 Respiratory rate 16 /min Kameron Caruso MD Work Phone: [facility] 05-27-2022 09:42-0500 Systolic blood pressure 136 mm[Hg] Kameron Caruso MD Work Phone: [facility] 03-02-2022 10:52-0400 Diastolic blood pressure 76 mm[Hg] Emma Tannhof ELECTRONIC ORGAN TECHNICIAN.FOUNDER PRESIDENT AND CEO Work Phone: [facility] 03-02-2022 10:52-0400 Heart rate 92 /min Emma Tannhof ELECTRONIC ORGAN TECHNICIAN.FOUNDER PRESIDENT AND CEO Work Phone: [facility] 03-02-2022 10:52-0400 Respiratory rate 18 /min Emma Tannhof ELECTRONIC ORGAN TECHNICIAN.FOUNDER PRESIDENT AND CEO Work Phone: [facility] 03-02-2022 10:52-0400 Systolic blood pressure 140 mm[Hg] Emma Canalesderick HOFFMANFOUNDER PRESIDENT AND CEO Work Phone: [facility] 11-23-2021 09:39-0400 Body weight 83.1 kg Kameron Caruso MD Work Phone: [facility] 11-23-2021 09:39-0400 Diastolic blood pressure 80 mm[Hg] Kameron Caruso MD Work Phone: [facility] 11-23-2021 09:39-0400 Heart rate 84 /min Kameron Caruso MD Work Phone: [facility] 11-23-2021 09:39-0400 Respiratory rate 16 /min Kameron Caruso MD Work Phone: [facility] 11-23-2021 09:39-0400 Systolic blood pressure 138 mm[Hg] Kameron Caruso MD Work Phone: [facility] 10-16-2019 10:09-0400 BP Diastolic 72 mm[Hg] [facility] [place] 10-16-2019 10:09-0400 BP Systolic 144 mm[Hg] [facility] [place] 10-16-2019 10:09-0400 Pulse (Heart Rate) 62 /min Santiago [facility] [place] 10-16-2019 10:09-0400 Pulse Oximetry 98 % [facility] [place] 10-16-2019 10:09-0400 Respiratory Rate 18 /min [facility] [place] 10-16-2019 09:15-0400 BMI (Body Mass Index) 29.44 kg/m2 Santiago Jose [employer] [facility] [place] [place] 10-16-2019 09:15-0400 Body Temperature 97.81 [degF] [facility] [employer] [facility] [place] 10-16-2019 09:15-0400 Body weight 85.28 kg Santiago [facility] [place] 10-16-2019 09:15-0400 Height 170.2 cm [facility] [place] 01-09-2019 12:06-0400 BP Diastolic 73 mm[Hg] [facility] [place] 01-09-2019 12:06-0400 BP Systolic 121 mm[Hg] Santiago Miller [facility] [place] , [place] 01-09-2019 11:50-0400 Pulse (Heart Rate) 64 /min Santiago Miller [facility], [place] 01-09-2019 11:50-0400 Pulse Oximetry 100 % Santiago Miller [facility] , [place] 01-09-2019 11:50-0400 Respiratory Rate 18 /min Santiago Miller [facility] [place] , [place] 01-09-2019 10:28-0400 BMI (Body Mass Index) 28.82 kg/m2 Santiago Miller [facility], [place] 01-09-2019 10:28-0400 Body weight 83.46 kg Santiago Miller [facility] , [place] 01-09-2019 10:28-0400 Height 170.2 cm Santiago Miller [facility] , [place] 01-09-2019 10:27-0400 Body Temperature 97.5 [degF] Santiago Miller [facility], [place] Encounters Encounter Date Encounter Type Care Provider Facility Start: 12-17-2024 ambulatory Efewongbe Oleghe OLS Fa cility:[facility] Start: 12-10-2024 ambulatory Efewongbe Oleghe OLS Fa cility:[facility] Start: 12-03-2024 ambulatory [facility] Facilit y:[facility] Start: 11-26-2024 ambulatory Efewongbe Oleghe OLS Fa cility:[facility] Start: 11-26-2024 Registered Referred Safia Torres Start: 11-25-2024 ambulatory Efewongbe Oleghe OLS Fa cility:[facility] Start: 11-25-2024 Registered Referred Safia Torres Start: 11-19-2024 ambulatory Efewongbe Oleghe OLS Fa cility:[facility] Start: 11-19-2024 Registered Referred Safia Torres Start: 11-12-2024 ambulatory [facility] Facilit y:[facility] Start: 11-12-2024 Registered Referred Safia Torres Start: 11-05-2024 ambulatory Safia Ruelas OLS Fa cility:[facility] Start: 11-05-2024 Registered Referred Safia Torres Start: 10-30-2024 End: 10-30-[address] Kameron Caruso MD Work Phone: [facility] Start: 10-30-2024 End: 10-30-2024 Patient encounter procedure Bret Snyder [facility] Work Phone: Start: 10-29-2024 End: 10-29-[address] Safia [facility]uel[facility] Work Phone: Start: 10-29-2024 End: 10-29-[address] Kameron Caruso MD Work Phone: [facility] Start: 10-29-2024 Registered Referred Safia Torres Start: 10-23-2024 ambulatory Safia VARGAS Fa cility:[facility] Start: 10-23-2024 Registered Referred Safia Torres Start: 10-22-2024 End: 10-22-2024 Patient encounter procedure Bret Snyder [facility] Work Phone: Start: 10-22-2024 End: 10-22-[address] Kameron Caruso MD Work Phone: [facility] Start: 10-22-2024 Registered Referred Safia Torres Start: 10-15-2024 ambulatory Safia Ruelas OLS Fa cility:[facility] Start: 10-15-2024 Registered Referred Safia Torres Start: 10-09-2024 End: 10-09-[address] Kameron Caruso MD Work Phone: [facility] Start: 10-09-2024 End: 10-09-2024 Patient encounter procedure Bret Snyder NP-[facility] Work Phone: Start: 10-08-2024 ambulatory Safia Ruelas OLS Fa cility:[facility] Start: 10-08-2024 Registered Referred Safia Torres Start: 10-02-2024 End: 10-02-[address] Mj Benavides MD -[facility] Work Phone: Start: 10-02-2024 End: 10-02-[address] Kameron Caruso MD Work Phone: [facility] Work Phone: Start: 10-01-2024 ambulatory Efsherry Westone OLS Fa cility:[facility] Start: 10-01-2024 Registered Referred Safia Torres Start: 09-29-2024 ambulatory Efewongbe Enricoe OLS Fa cility:[facility] Start: 09-29-2024 Registered Referred Safia Torres Start: 09-24-2024 ambulatory Efewongbe Enricoe OLS Fa cility:[facility] Start: 09-24-2024 Registered Referred Safia Torres Start: 09-17-2024 ambulatory Efewjosé antonio Ruelas OLS Fa cility:[facility] Start: 09-17-2024 Registered Referred Safia Torres Start: 09-11-2024 End: 09-11-2024 ambulatory Bret Snyder 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 Safia Ruelas MD -[facility] Work Phone: Start: 09-10-2024 End: 09-10-2024 ambulatory Safia Ruelas Facility:[facility] Start: 09-10-2024 Registered Referred Safia Ruelas MD -[facility] Start: 08-30-2024 End: 08-30-2024 Telephone encounter Kameron Caruso MD Work Phone: [facility] [place] Comment on above: [facility] requesti ng verbal agree to follow Start: 08-15-2024 End: 09-09-2024 Evaluation and management of inpatient SILVINO HA DO Ashleyanny Warnern Start: 08-09-2024 Evaluation and manag ement of inpatient KAMERON CARUSO Facility:[facility] Start: 08-06-2024 Evaluation and manag ement of inpatient [facility] Start: 08-02-2024 End: 08-02-2024 ambulatory JUVENTINO ROGERS Facility:[facility] Start: 08-02-2024 End: 08-15-2024 Evaluation and management of inpatient Prema Ramos MD Work Phone: [id number] Start: 08-02-2024 End: 08-02-2024 Emergency department patient [...] Kameron Caruso MD Work Phone: [facility] [place] Comment on above: medication not on cu rrent med list Start: 06-26-2024 End: 06-26-2024 Office outpatient visit 25 minutes Emma Sotomayor APRN.CNP Work Phone: [facility] [place] Comment on above: Atrial fibrillation, unspecified type (HCC) (Primary Dx); Hypothyroidism, unspecified type; Need for malaria prophylaxis Start: 06-26-2024 End: 06-26-2024 ambulatory EMMA NIGELSCOTTCarmela Facility:[facility] Start: 06-25-2024 ambulatory KAMERON Chirinos ity:[facility] Start: 06-24-2024 End: 06-24-2024 Telephone encounter Kameron Caruso MD Work Phone: [facility] [place] Comment on above: Patient Update Start: 06-11-2024 End: 06-11-2024 Telephone encounter Kameron Caruso MD Work Phone: [facility] [place] Comment on above: Results Start: 06-11-2024 End: 06-11-2024 ambulatory KAMERON CARUSO Facility:[facility] Start: 06-10-2024 End: 06-11-2024 Telephone encounter Kameron Caruso MD Work Phone: [facility] [place] Comment on above: Medication Problem Start: 05-31-2024 End: 05-31-2024 ambulatory KAMERON CARUSO Facility:[facility] Start: 05-31-2024 End: 05-31-2024 Patient encounter procedure Kameron Caruso MD Work Phone: [facility] [place] Comment on above: Essential hypertensi on, [...] End: 05-23-2024 ambulatory KAMERON CARUSO Facility:[facility] Start: 11-28-2023 End: 11-28-2023 ambulatory KAMERON CARUSO Facility:[facility] Start: 11-28-2023 End: 11-28-2023 Patient encounter procedure Kameron Caruso MD Work Phone: [facility] [place] Comment on above: 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, unspecified CKD stage, unspecified whether mcfp insulin use (HCC) (Primary Dx); Essential hypertension, benign; Chronic kidney disease, stage 3a (HCC); Hyperlipidemia, unspecified hyperlipidemia type; Hypothyroidism, unspecified type; Edema of left lower leg; Memory loss; Type 2 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, without long-term current use of insulin (HCC) Start: 11-27-2023 End: 11-27-2023 ambulatory [facility] Facility:[facility] Start: 10-10-2023 End: 10-10-2023 [facility] Facility:[facility] Start: 10-10-2023 End: 10-10-2023 Office outpatient visit 25 minutes David Dupree APRN.[employer]OUNDER PRESIDENT [employer] CEO Work Phone: [facility] Comment on above: Rash (Primary Dx) Start: 09-29-2023 End: 09-29-2023 ambulatory [facility] Facility:[facility] Start: 09-29-2023 End: 09-29-2023 Patient encounter procedure Radha Levine APRN.FOUNDER PRESIDENT [employer] CEO Work Phone: [facility] Comment on above: Allergic contact lexi matitis due to plant (Primary Dx) Start: 09-19-2023 Refill Kameron nixon MD Work Phone: [facility] [place] Comment on above: Refill Request Start: 04-08-2023 Telephone encounter Kameron bucio MD Work Phone: [address] [place] [address] Comment on above: Refill Request Start: 11-25-2022 [...] MD Work Phone: [facility] [place] Start: 04-11-2022 Refill Kameron nixon MD Work Phone: [facility] Comment on above: Refill Request Start: 03-02-2022 ambulatory Kameron nixon MD Work Phone: [facility] [place] Comment on above: Back Pain Start: 03-02-2022 End: 03-02-2022 Patient encounter procedure Emma Sotomayor APRN.FOUNDER PRESIDENT [employer] CEO Work Phone: [facility] Comment on above: Acute midline low ba ck pain without sciatica (Primary Dx) Start: 01-11-2022 Refill Mj ORTIZ RN.FOUNDER PRESIDENT [employer] CEO Work Phone: [facility] [place] Comment on above: Refill Request Start: 01-11-2022 Refill Kameron nixon MD Work Phone: [facility] Comment on above: Refill Request Start: 12-16-2021 Telephone encounter Kameron bucio MD Work Phone: [facility] Comment on above: Diabetic Testing Sup plies Start: 11-23-2021 End: 11-23-2021 Refill Kameron Caruso MD Work Phone: [facility] [place] Comment on above: 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, unspecified CKD stage, unspecified whether mcfp insulin use (HCC) (Primary Dx); Essential hypertension, benign; Hyperlipidemia, unspecified hyperlipidemia type; Stage 3b chronic kidney disease (HCC); Hypothyroidism, unspecified type; Memory loss Start: 10-14-2021 Refill Kameron nixon MD Work Phone: [facility] Comment on above: Refill Request Start: 09-27-2021 Telephone encounter Kameron bucio MD Work Phone: [facility] Comment on above: information requeste d/rxs needed Start: 09-13-2021 Telephone encounter Kameron bucio MD Work Phone: [facility] [place] Comment on above: Patient Question; Me dication [...] Start: 08-15-2024 Assay of magnesium Abram Mccoy ELECTRONIC ORGAN TECHNICIAN-FOUNDER PRESIDENT AND CEO Work Phone: Start: 08-15-2024 Glucose measurement, blood Christos Voss MD Work Phone: Start: 08-14-2024 Glucose measurement, blood Christos Voss MD Work Phone: Start: 08-14-2024 Glucose measurement, blood Christos Voss MD Work Phone: Start: 08-14-2024 Glucose measurement, blood Christos Voss MD Work Phone: Start: 08-14-2024 Assay of magnesium Nase scott Hwang Nadine ELECTRONIC ORGAN TECHNICIAN-FOUNDER PRESIDENT AND CEO Work Phone: Start: 08-13-2024 Glucose measurement, blood Christos Voss MD Work Phone: Start: 08-13-2024 Glucose measurement, blood Christos Voss MD Work Phone: Start: 08-13-2024 Glucose measurement, blood Christos Voss MD Work Phone: Start: 08-13-2024 Glucose measurement, blood Felicity Castellano MD Work Phone: Start: 08-13-2024 Assay of magnesium Adboule scott Hwang Nadine ELECTRONIC ORGAN TECHNICIAN-FOUNDER PRESIDENT AND CEO Work Phone: Start: 08-13-2024 Glucose measurement, blood Felicity Castellano MD Work Phone: Start: 08-12-2024 Glucose measurement, blood Felicity Castellano MD Work Phone: Start: 08-12-2024 Glucose measurement, blood Felicity Castellano MD Work Phone: Start: 08-12-2024 Glucose measurement, blood Felicity Castellano MD Work Phone: Start: 08-12-2024 Assay of magnesium Nase rin Jaiden Nadine ELECTRONIC ORGAN TECHNICIAN-FOUNDER PRESIDENT AND CEO Work Phone: Start: 08-12-2024 Glucose measurement, blood Felicity Castellano MD Work Phone: Start: 08-11-2024 Glucose measurement, blood Felicity Castellano MD Work Phone: Start: 08-11-2024 Glucose measurement, blood Felicity Castellano MD Work Phone: Start: 08-11-2024 Glucose measurement, blood Felicity Castellano MD Work Phone: Start: 08-11-2024 Assay of magnesium Abram Mccoy ELECTRONIC ORGAN TECHNICIAN-FOUNDER PRESIDENT AND CEO Work Phone: Start: 08-10-2024 Glucose measurement, blood Felicity Castellano MD Work Phone: Start: 08-10-2024 Glucose measurement, blood Felicity Castellano MD Work Phone: Start: 08-10-2024 End: 08-10-2024 Culture bacterial blood aerobic w/id isolates Radhareal Gr ELECTRONIC ORGAN TECHNICIAN-FOUNDER PRESIDENT AND CEO Work Phone: Start: 08-10-2024 Glucose measurement, blood Felicity Castellano MD Work Phone: Start: 08-10-2024 End: 08-10-2024 Glucose measurement, blood Felicity Castellano MD Work Phone: Start: 08-10-2024 Glucose measurement, blood Felicity Castellano MD Work Phone: Start: 08-10-2024 Assay of magnesium Abram Hwang Nadine ELECTRONIC ORGAN TECHNICIAN-FOUNDER PRESIDENT AND CEO Work Phone: Start: 08-10-2024 Glucose measurement, blood [...] Phone: Start: 08-09-2024 Assay of magnesium Abram Mccoy ELECTRONIC ORGAN TECHNICIAN-FOUNDER PRESIDENT AND CEO Work Phone: Start: 08-09-2024 Glucose measurement, blood Felicity Castellano MD Work Phone: Start: 08-08-2024 Glucose measurement, blood Felicity Castellano MD Work Phone: Start: 08-08-2024 Culture bct isol&prs mptv id isolate ea urine Bella Hwang Theresa ELECTRONIC ORGAN TECHNICIAN-FOUNDER PRESIDENT AND CEO Work Phone: Start: 08-08-2024 EXTRA MICRO Bella Hwang Tatiana matthews ELECTRONIC ORGAN TECHNICIAN-FOUNDER PRESIDENT AND CEO Work Phone: Start: 08-08-2024 URINALYSIS REFLEX TO CULTURE Bella Hwang Theresa ELECTRONIC ORGAN TECHNICIAN-FOUNDER PRESIDENT AND CEO Work Phone: Start: 08-08-2024 Ct head/brain w/o co ntrast material Bella Hwang Theresa ELECTRONIC ORGAN TECHNICIAN-FOUNDER PRESIDENT AND CEO Work Phone: Start: 08-08-2024 Glucose measurement, blood Felicity Castellano MD Work Phone: Start: 08-08-2024 End: 08-08-2024 Glucose measurement, blood Felicity Castellano MD Work Phone: Start: 08-08-2024 Assay of magnesium Abram Hwang Nadine ELECTRONIC ORGAN TECHNICIAN-FOUNDER PRESIDENT AND CEO Work Phone: Start: 08-07-2024 Glucose measurement, blood Felicity Castellano MD Work Phone: Start: 08-07-2024 Glucose measurement, blood Felicity Castellano MD Work Phone: Start: 08-07-2024 Glucose measurement, blood Felicity Castellano MD Work Phone: Start: 08-07-2024 Glucose measurement, blood Felicity Castellano MD Work Phone: Start: 08-06-2024 Glucose measurement, blood Felicity Castellano MD Work Phone: Start: 08-06-2024 Assay of magnesium Nase rin Jaiden Nadine ELECTRONIC ORGAN TECHNICIAN-FOUNDER PRESIDENT AND CEO Work Phone: Start: 08-06-2024 Glucose measurement, blood Fleicity Castellano MD Work Phone: Start: 08-06-2024 Glucose measurement, blood Felicity Castellano MD Work Phone: Start: 08-06-2024 Radiologic exam swal low function contrast study Shanna Russ ELECTRONIC ORGAN TECHNICIAN-FOUNDER PRESIDENT AND CEO Work Phone: Start: 08-06-2024 SPEECH MODIFIED KEAGAN UM SWALLOW Shanna Russ ELECTRONIC ORGAN TECHNICIAN-FOUNDER PRESIDENT AND CEO Work Phone: Start: 08-06-2024 Glucose measurement, blood Felicity Castellano MD Work Phone: Start: 08-05-2024 Glucose measurement, blood Felicity Castellano MD Work Phone: Start: 08-05-2024 Assay of magnesium Nase rin Jaiden Nadine ELECTRONIC ORGAN TECHNICIAN-FOUNDER PRESIDENT AND CEO Work Phone: Start: 08-05-2024 Glucose measurement, blood Felicity Castellano MD Work Phone: Start: 08-05-2024 Glucose measurement, blood Felicity Castellano MD Work Phone: Start: 08-05-2024 Echo tthrc r-t 2d w/wom-mode compl spec&colr d Taran Traore ELECTRONIC ORGAN TECHNICIAN-FOUNDER PRESIDENT AND CEO Work Phone: Start: 08-05-2024 Glucose measurement, blood Felicity Castellano MD Work Phone: Start: 08-05-2024 Assay of magnesium Nase rin Jaiden Nadine ELECTRONIC ORGAN TECHNICIAN-FOUNDER PRESIDENT AND CEO Work Phone: Start: 08-05-2024 Glucose measurement, blood [...] Phone: Start: 08-04-2024 Assay of magnesium Abram scott Mccoy ELECTRONIC ORGAN TECHNICIAN-FOUNDER PRESIDENT AND CEO Work Phone: Start: 08-04-2024 Glucose measurement, blood Richard Mejia MD Work Phone: Start: 08-03-2024 Ct head/brain w/o co ntrast material Shaila L Ciupak PA-C Start: 08-03-2024 Sodium serum plasma or whole blood Shanna Denise MD Work Phone: Start: 08-03-2024 Glucose measurement, blood Richard Mejia MD Work Phone: Start: 08-03-2024 Radiologic exam abdo men 1 view Balbir Mccoy ELECTRONIC ORGAN TECHNICIAN-FOUNDER PRESIDENT AND CEO Work Phone: Start: 08-03-2024 Glucose measurement, blood [...] brain stem w/o contrast material Taran Traore ELECTRONIC ORGAN TECHNICIAN-FOUNDER PRESIDENT AND CEO Work Phone: Start: 08-03-2024 ABORH TYPE RECONFIRMATION Cindy Keyur [facility] Work Phone: Start: 08-03-2024 Assay of magnesium Abram Mccoy ELECTRONIC ORGAN TECHNICIAN-FOUNDER PRESIDENT AND CEO Work Phone: Start: 08-02-2024 Glucose measurement, blood [...] Performed By: #### X M #### [facility] ([facility]) [address] [place] [address] Start: 08-02-2024 EXTRA MICRO Taran Traore ELECTRONIC ORGAN TECHNICIAN-FOUNDER PRESIDENT AND CEO Work Phone: Start: 08-02-2024 Hemoglobin glycosylated a1c Balibr Mccoy ELECTRONIC ORGAN TECHNICIAN-FOUNDER PRESIDENT AND CEO Work Phone: Start: 08-02-2024 Hepatic function panel Balbir Mccoy ELECTRONIC ORGAN TECHNICIAN-FOUNDER PRESIDENT AND CEO Work Phone: Start: 08-02-2024 Iadna s aureus ampli fied probe tq Naserin M Nadine ELECTRONIC ORGAN TECHNICIAN-FOUNDER PRESIDENT AND CEO Work Phone: Start: 08-02-2024 URINALYSIS REFLEX TO CULTURE Taran Traore ELECTRONIC ORGAN TECHNICIAN-FOUNDER PRESIDENT AND CEO Work Phone: Start: 08-02-2024 Urnls dip stick/tabl et reagent auto microscopy Taran Traore ELECTRONIC ORGAN TECHNICIAN-FOUNDER PRESIDENT AND CEO Work Phone: Start: 08-02-2024 SARS-CoV-2, Influenz a [...] Author Start: 08-15-2025 Complete blood count Hemoglobin/Hematocrit [facility] Start: 08-15-2025 Creatinine measurement Serum Creatinine [facility] Start: 08-02-2025 Thyroid stimulating hormone measurement [facility] Start: 06-26-2025 Annual PCP Team Chronic Disease Visit Annual PCP Team Chronic Disease Visit [facility] Start: 05-31-2025 Annual PCP Team Chronic Disease Visit Annual PCP Team Chronic Disease Visit [facility] Start: 05-31-2025 Covid-19 Vaccine () Covid-19 Vaccine () [facility] Comment on above: Postponed from 01/14/2024 (Declined at t his time) Start: 05-31-2025 Pneumococcal Vaccine: 50+ (2 of 2 - PPSV23) Pneumococcal Vaccine: 50+ (2 of 2 - PPSV23) [facility] Comment on above: Postponed from 12/19/2019 (Declined at t his time) Start: 05-23-2025 Creatinine measurement Serum Creatinine [facility] Start: 05-23-2025 Hepatitis B screening Urine Albumin:Creatinine Ratio [facility] Start: 05-23-2025 Hepatitis B surface antibody level LDL Cholesterol [facility] Start: 02-02-2025 Hemoglobin A1c measurement [facility]C [facility] Start: 01-13-2025 Influenza vaccination [facility] Start: 01-03-2025 Glaucoma screening Dilated Retinal Exam [facility] Start: 12-24-2024 End: 12-24-2024 Patient encounter procedure 12/24/2024 9:20 AM EDT Office Visit [facility] [place] [address] [place] [address] Kameron Caruso MD [address] [place] [id number] 6 month follow up [facility] [place] Comment on above: 6 month follow up Start: 11-28-2024 End: 02-27-2025 Comprehensive metabolic 2000 panel - Serum or Plasma COMPREHENSIVE METABOLIC PANEL Lab Routine Essential hypertension, benign Chronic kidney disease, stage 3a (HCC) Hyperlipidemia, unspecified hyperlipidemia type Expected: 11/28/2024 (Approximate), Expires: 02/27/2025 [facility] Work Phone: Comment on above: Expected: 11/28/2024 (Approximate), Expi res: 02/27/2025 Start: 11-28-2024 End: 02-27-2025 Hemoglobin A1c in Blood HEMOGLOBIN A1C Lab Routine Expected: 11/28/2024 (Approximate), Expires: 02/27/2025 [facility] Comment on above: Expected: 11/28/2024 (Approximate), Expi res: 02/27/2025 Start: 11-28-2024 End: 02-27-2025 Lipid 1996 panel - Serum or Plasma LIPID PANEL BASIC Lab Routine Essential hypertension, benign Hyperlipidemia, unspecified hyperlipidemia type Expected: 11/28/2024 (Approximate), Expires: 02/27/2025 [facility] Comment on above: Expected: 11/28/2024 (Approximate), Expi res: 02/27/2025 Start: 11-28-2024 End: 02-27-2025 Thyrotropin [Units/volume] in Serum or Plasma THYROID STIMULATING HORMONE Lab Routine Hypothyroidism, unspecified type Expected: 11/28/2024 (Approximate), Expires: 02/27/2025 [facility] Comment on above: Expected: 11/28/2024 (Approximate), Expi res: 02/27/2025 Start: 11-27-2024 Annual PCP Team Chronic Disease Visit Annual PCP Team Chronic Disease Visit [facility] Start: 11-27-2024 Anxiety Screening Anxiety Screening [facility] Start: 11-27-2024 Depression Screening Depression Screening [facility] Start: 11-27-2024 RSV Vaccine (1 - 1-dose 60+ series) RSV Vaccine (1 - 1-dose 60+ series) [facility] Comment on above: Postponed from 2004 (Declined at t his time) Start: 11-27-2024 RSV Vaccine (1 - 1-dose 75+ series) RSV Vaccine (1 - 1-dose 75+ series) [facility] Comment on above: Postponed from 10/26/2019 (Declined at t his time) Start: 11-26-2024 Creatinine measurement Serum Creatinine [facility] Start: 11-26-2024 Hepatitis B surface antibody level LDL Cholesterol [facility] Start: 11-20-2024 Hemoglobin A1c [facility]C [facility] Start: 11-11-2024 [facility] Comment on above: Postponed from 01/14/2024 (Declined at t his time) Start: 10-08-2024 End: 10-08-2024 ambulatory [facility] Start: 10-02-2024 Evaluation of diagnostic study results 12 Lead EKG performed by [facility] Start: 08-02-2024 [facility] Start: 08-02-2024 SARS-CoV-2, Influenza & RSV (PCR) SARS-CoV-2, Influenza & RSV (PCR) [facility] Start: 08-02-2024 End: 08-02-2024 [facility] Start: 08-02-2024 Electrocardiographic procedure [facility] Start: 08-02-2024 Oxygen therapy [facility] Start: 07-24-2024 End: 10-23-2024 Thyrotropin [Units/volume] in Serum or Plasma THYROID STIMULATING HORMONE Lab Routine Hypothyroidism, unspecified type Expected: 07/24/2024, Expires: 10/23/2024 [facility] Work Phone: Comment on above: Expected: 07/24/2024, Expires: Start: 07-24-2024 End: 10-23-2024 Thyroxine (T4) free [Mass/volume] in Serum or Plasma T4 FREE/FREE THYROXINE Lab Routine Hypothyroidism, unspecified type Expected: 07/24/2024, Expires: 10/23/2024 [facility] Comment on above: Expected: 07/24/2024, Expires: Start: 06-25-2024 End: 06-25-2024 Patient encounter procedure 06/25/2024 9:40 AM EST Office Visit [facility] [place] [address] [place] [id number] Kameron Caruso MD [address] [place] [id number] 1 mo f/u, new dx afib. [facility] [place] Comment on above: 1 mo f/u, new dx afib. Start: 06-11-2024 End: 06-11-2024 Patient encounter procedure 06/11/2024 8:50 AM EST Office Visit Cardiology [address] [place] [address] Atrial fibrillation, unspecified type (HCC) [I48.91] Cardiology Comment on above: Atrial fibrillation, unspecified type (H CC) [I48.91] Start: 05-30-2024 Annual PCP Team Chronic Disease Visit Annual PCP Team Chronic Disease Visit [facility] Start: 05-30-2024 End: 08-29-2024 Comprehensive metabolic 2000 panel - Serum or Plasma COMPREHENSIVE METABOLIC PANEL Lab Routine Type 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, unspecified CKD stage, unspecified whether mcfp insulin use (HCC) Essential hypertension, benign Chronic kidney disease, stage 3a (HCC) Hyperlipidemia, unspecified hyperlipidemia type Expected: 05/30/2024 (Approximate), Expires: 08/29/2024 [facility] Work Phone: Comment on above: Expected: 05/30/2024 (Approximate), Expi res: 08/29/2024 Start: 05-30-2024 Covid-19 Vaccine () Covid-19 Vaccine () [facility] Comment on above: Postponed from 01/13/2023 (Declined at t his time) Start: 05-30-2024 End: 08-29-2024 Hemoglobin A1c in Blood HEMOGLOBIN A1C Lab Routine Type 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, unspecified CKD stage, unspecified whether tank terminal gauger insulin use (HCC) Expected: 05/30/2024 (Approximate), Expires: 08/29/2024 [facility] Comment on above: Expected: 05/30/2024 (Approximate), Expi res: 08/29/2024 Start: 05-30-2024 Hepatitis C screening Hepatitis C Screening [facility] Comment on above: Postponed from 1962 (Declined at t his time) Start: 05-30-2024 End: 08-29-2024 Lipid 1996 panel - Serum or Plasma LIPID PANEL BASIC Lab Routine Type 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, unspecified CKD stage, unspecified whether tank terminal gauger insulin use (HCC) Essential hypertension, benign Hyperlipidemia, unspecified hyperlipidemia type Expected: 05/30/2024 (Approximate), Expires: 08/29/2024 [facility] Comment on above: Expected: 05/30/2024 (Approximate), Expi res: 08/29/2024 Start: 05-30-2024 End: 08-29-2024 Microalbumin/Creatinine [Mass Ratio] in Urine ALBUMIN/CREATININE RATIO, URINE Lab Routine Type 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, unspecified CKD stage, unspecified whether tank terminal gauger insulin use (HCC) Expected: 05/30/2024 (Approximate), Expires: 08/29/2024 [facility] Comment on above: Expected: 05/30/2024 (Approximate), Expi res: 08/29/2024 Start: 05-30-2024 Pneumococcal Vaccine: 65+ (2 of 2 - PPSV23 or PCV20) Pneumococcal Vaccine: 65+ (2 of 2 - PPSV23 or PCV20) [facility] Comment on above: Postponed from 12/19/2019 (Declined at t his time) Start: 05-30-2024 End: 08-29-2024 Thyrotropin [Units/volume] in Serum or Plasma THYROID STIMULATING HORMONE Lab Routine Hypothyroidism, unspecified type Expected: 05/30/2024 (Approximate), Expires: 08/29/2024 [facility] Comment on above: Expected: 05/30/2024 (Approximate), Expi res: 08/29/2024 Start: 05-30-2024 End: 05-30-2024 Patient encounter procedure 05/30/2024 9:40 AM EST Office Visit Family [place] [address] [place] [place] [id number] Kameron Caruso MD [address] [place] [id number] 6 mo f/u [facility] [place] Comment on above: 6 mo f/u Start: 05-29-2024 Hemoglobin A1c measurement HbA1C [facility] Start: 05-16-2024 Creatinine measurement Serum Creatinine [facility] Start: 05-16-2024 Hepatitis B screening Urine Albumin:Creatinine Ratio [facility] Start: 05-16-2024 Hepatitis B surface antibody level LDL Cholesterol [facility] Start: 05-15-2024 [facility] Directive Discussion Advance Directive Discussion [facility] Start: 01-14-2024 Influenza vaccination [facility] Start: 01-14-2024 [facility] Start: 01-04-2024 Glaucoma screening Dilated Retinal Exam [facility] Start: 01-04-2024 Hepatitis C antibody, confirmatory test Dilated Retinal Exam [facility] Start: 11-28-2023 End: 11-28-2023 Patient encounter procedure 11/28/2023 9:40 AM EDT Office Visit Family [facility] [place] [address] [place] [id number] Kameron Caruso MD [address] [place] [address] 6 mo follow up Family [place] Comment on above: 6 mo follow up Start: 11-26-2023 ANNUAL PCP TEAM CHRONIC DISEASE VISIT ANNUAL PCP TEAM CHRONIC DISEASE VISIT [facility] Start: 11-26-2023 BP CONTROLLED (<130/80) BP CONTROLLED (<130/80) [facility] Start: 11-23-2023 Complete blood count Hemoglobin/Hematocrit [facility] Start: 11-23-2023 HEMOGLOBIN/HEMATOCRIT HEMOGLOBIN/HEMATOCRIT [facility] Start: 11-23-2023 Hepatitis B surface antibody level LDL CHOLESTEROL [facility] Start: 11-23-2023 SERUM CREATININE SERUM CREATININE [facility] Start: 11-14-2023 Hemoglobin A1c measurement HbA1C [facility] Start: 05-27-2023 ANNUAL PCP TEAM CHRONIC DISEASE VISIT ANNUAL PCP TEAM CHRONIC DISEASE VISIT [facility] Start: 05-27-2023 COVID-19 VACCINE (2 - Booster for Alyssa series) COVID-19 VACCINE (2 - Booster for Alyssa series) [facility] Comment on above: Postponed from 09/17/2020 (Declined at t his time) Start: 05-27-2023 HEPATITIS C SCREENING HEPATITIS C SCREENING [facility] Comment on above: Postponed from 1962 (Declined at t his time) Start: 05-25-2023 Hemoglobin A1c/Hemoglobin.total in Blood HBA1C [facility] Start: 05-19-2023 HEMOGLOBIN/HEMATOCRIT HEMOGLOBIN/HEMATOCRIT [facility] Start: 05-19-2023 Hepatitis B surface antibody level LDL CHOLESTEROL [facility] Start: 05-19-2023 SERUM CREATININE SERUM CREATININE [facility] Start: 05-15-2023 Advance Directive Discussion Advance Directive Discussion [facility] Start: 05-15-2023 Behavioral Health Screening Behavioral Health Screening [facility] Start: 03-02-2023 ANNUAL PCP TEAM CHRONIC DISEASE VISIT ANNUAL PCP TEAM CHRONIC DISEASE VISIT [facility] Start: 01-13-2023 Covid-19 Vaccine () Covid-19 Vaccine () [facility] Start: 01-13-2023 Influenza vaccination [facility] Start: 12-27-2022 Hepatitis C antibody, confirmatory test DILATED RETINAL EXAM [facility] Start: 11-24-2022 End: 01-24-2023 CBC panel - Blood by Automated count CBC Lab Routine Essential hypertension, benign Hypothyroidism, unspecified type Expected: 11/24/2022 (Approximate), Expires: 01/24/2023 [facility] Work Phone: Comment on above: Expected: 11/24/2022 (Approximate), Expi res: 01/24/2023 Start: 11-24-2022 End: 01-24-2023 Comprehensive metabolic 2000 panel - Serum or Plasma COMP METABOLIC PANEL Lab Routine Essential hypertension, benign Type 2 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, without long-term current use of insulin (HCC) Hyperlipidemia, unspecified hyperlipidemia type Expected: 11/24/2022 (Approximate), Expires: 01/24/2023 [facility] Work Phone: Comment on above: Expected: 11/24/2022 (Approximate), Expi res: 01/24/2023 Start: 11-24-2022 End: 01-24-2023 Hemoglobin A1c in Blood HGB A1C Lab Routine Type 2 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, without long-term current use of insulin (HCC) Expected: 11/24/2022 (Approximate), Expires: 01/24/2023 [facility] Work Phone: Comment on above: Expected: 11/24/2022 (Approximate), Expi res: 01/24/2023 Start: 11-24-2022 End: 01-24-2023 Lipid 1996 panel - Serum or Plasma LIPID PANEL BASIC Lab Routine Essential hypertension, benign Type 2 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, without long-term current use of insulin (HCC) Hyperlipidemia, unspecified hyperlipidemia type Expected: 11/24/2022 (Approximate), Expires: 01/24/2023 [facility] Work Phone: Comment on above: Expected: 11/24/2022 (Approximate), Expi res: 01/24/2023 Start: 11-24-2022 End: 01-24-2023 Thyrotropin [Units/volume] in Serum or Plasma TSH BLD Lab Routine Hypothyroidism, unspecified type Expected: 11/24/2022 (Approximate), Expires: 01/24/2023 [facility] Work Phone: Comment on above: Expected: 11/24/2022 (Approximate), Expi res: 01/24/2023 Start: 11-23-2022 3 comp foot exam completed DIABETIC FOOT EXAM [facility] Start: 11-23-2022 ANNUAL PCP TEAM CHRONIC DISEASE VISIT ANNUAL PCP TEAM CHRONIC DISEASE VISIT [facility] Start: 11-23-2022 Diabetic foot examination Diabetic Foot Exam [facility] Start: 11-20-2022 Hepatitis B screening URINE ALBUMIN:CREATININE RATIO [facility] Start: 11-20-2022 Hepatitis B surface antibody level LDL CHOLESTEROL [facility] Start: 11-20-2022 SERUM CREATININE SERUM CREATININE [facility] Start: 11-16-2022 Hemoglobin A1c/Hemoglobin.total in Blood HBA1C [facility] Start: 11-11-2022 Influenza vaccination INFLUENZA (#1) [facility] Comment on above: Postponed from 01/13/2022 (Declined at t his time) Start: 05-26-2022 End: 07-26-2022 CBC panel - Blood by Automated count CBC Lab Routine Essential hypertension, benign Stage 3b chronic kidney disease (HCC) Expected: 05/26/2022 (Approximate), Expires: 07/26/2022 [facility] Work Phone: Comment on above: Expected: 05/26/2022 (Approximate), Expi res: 07/26/2022 Start: 05-26-2022 End: 07-26-2022 Comprehensive metabolic 2000 panel - Serum or Plasma COMP METABOLIC PANEL Lab Routine Type 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, unspecified CKD stage, unspecified whether tank terminal gauger insulin use (HCC) Essential hypertension, benign Hyperlipidemia, unspecified hyperlipidemia type Stage 3b chronic kidney disease (HCC) Expected: 05/26/2022 (Approximate), Expires: 07/26/2022 [facility] Work Phone: Comment on above: Expected: 05/26/2022 (Approximate), Expi res: 07/26/2022 Start: 05-26-2022 End: 07-26-2022 Hemoglobin A1c in Blood HGB A1C Lab Routine Type 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, unspecified CKD stage, unspecified whether tank terminal gauger insulin use (HCC) Expected: 05/26/2022 (Approximate), Expires: 07/26/2022 [facility] Work Phone: Comment on above: Expected: 05/26/2022 (Approximate), Expi res: 07/26/2022 Start: 05-26-2022 End: 07-26-2022 Lipid 1996 panel - Serum or Plasma LIPID PANEL BASIC Lab Routine Essential hypertension, benign Hyperlipidemia, unspecified hyperlipidemia type Expected: 05/26/2022 (Approximate), Expires: 07/26/2022 [facility] Work Phone: Comment on above: Expected: 05/26/2022 (Approximate), Expi res: 07/26/2022 Start: 05-26-2022 End: 07-26-2022 Thyrotropin [Units/volume] in Serum or Plasma TSH BLD Lab Routine Hypothyroidism, unspecified type Expected: 05/26/2022 (Approximate), Expires: 07/26/2022 [facility] Work Phone: Comment on above: Expected: 05/26/2022 (Approximate), Expi res: 07/26/2022 Start: 05-23-2022 Hemoglobin A1c/Hemoglobin.total in Blood HBA1C [facility] Start: 05-18-2022 ANNUAL PCP TEAM CHRONIC DISEASE VISIT ANNUAL PCP TEAM CHRONIC DISEASE VISIT [facility] Start: 05-17-2022 Hepatitis B surface antibody level LDL CHOLESTEROL [facility] Start: 05-17-2022 SERUM CREATININE SERUM CREATININE [facility] Start: 05-15-2022 ADVANCE DIRECTIVE DISCUSSION ADVANCE DIRECTIVE DISCUSSION [facility] Start: 01-13-2022 Influenza vaccination [facility] Start: 01-11-2022 Hepatitis C antibody, confirmatory test DILATED RETINAL EXAM [facility] Start: 11-14-2021 Hemoglobin A1c/Hemoglobin.total in Blood HBA1C [facility] Start: 11-06-2021 Screening for malignant neoplasm of breast [facility] Start: 11-05-2021 3 comp foot exam completed DIABETIC FOOT EXAM [facility] Start: 11-05-2021 Adult depression screening assessment DEPRESSION SCREENING [facility] Start: 11-04-2021 Hepatitis B screening URINE ALBUMIN:CREATININE RATIO [facility] Start: 10-15-2021 Hepa vaccine adult dose for intramuscular use HEPATITIS A VACCINE ADULT IM Immunization/Injection Routine Need for vaccination Expected: 10/15/2021 [facility] Work Phone: Comment on above: Expected: 10/15/2021 Start: 10-15-2021 Tdap vaccine 7 yrs/> im TDAP VACCINE AGE 7+ IM Immunization/Injection Routine Need for vaccination Expected: 10/15/2021 [facility] Work Phone: Comment on above: Expected: 10/15/2021 Start: 05-15-2021 ADVANCE DIRECTIVE DISCUSSION ADVANCE DIRECTIVE DISCUSSION [facility] Start: 05-15-2021 DEPRESSION ASSESSMENT DEPRESSION ASSESSMENT [facility] Start: 10-23-2020 PNEUMOCOCCAL: 65+ (2 - PPSV23 if available, else PCV20) PNEUMOCOCCAL: 65+ (2 - PPSV23 if available, else PCV20) [facility] Start: 10-23-2020 PNEUMOCOCCAL: 65+ (2 - PPSV23 or PCV20) PNEUMOCOCCAL: 65+ (2 - PPSV23 or PCV20) [facility] Start: 10-16-2020 HEMOGLOBIN/HEMATOCRIT HEMOGLOBIN/HEMATOCRIT [facility] Start: 09-17-2020 COVID-19 VACCINE (2 - Booster for Alyssa series) COVID-19 VACCINE (2 - Booster for Alyssa series) [facility] Start: 12-19-2019 Pneumococcal vaccination [facility] Start: 12-19-2019 Pneumococcal Vaccine: 65+ (2 - PPSV23 or PCV20) Pneumococcal Vaccine: 65+ (2 - PPSV23 or PCV20) [facility] Start: 12-19-2019 PNEUMOCOCCAL: 65+ (2 - PPSV23 or PCV20) PNEUMOCOCCAL: 65+ (2 - PPSV23 or PCV20) [facility] Start: 11-08-2019 Screening for malignant neoplasm of colon [facility] Start: 10-26-2019 [facility] Start: 01-13-2019 Influenza vaccination Flu vaccine (#1) [place] Start: 12-23-2018 Annual Wellness Visit (AWV) Annual Wellness Visit (AWV) [place] Start: 2009 DEXA (modify frequency per FRAX score) DEXA (modify frequency per FRAX score) [place] Start: 2009 Pneumococcal 65+ years Vaccine (1 of 1 - PPSV23) Pneumococcal 65+ years Vaccine (1 of 1 - PPSV23) [place] Start: 2009 Pneumococcal 65+ years Vaccine (1 of 2 - PCV13) Pneumococcal 65+ years Vaccine (1 of 2 - PCV13) [place] Start: 10-26-2007 Annual Wellness Visit (AWV) Annual Wellness Visit (AWV) [place] Start: 2004 Hepatitis B Vaccine (1 of 3 - Risk 3-dose series) Hepatitis B Vaccine (1 of 3 - Risk 3-dose series) [facility] Start: 2004 RSV Vaccine (1 - 1-dose 60+ series) RSV Vaccine (1 - 1-dose 60+ series) [facility] Start: 10-26-1999 Screening for osteoporosis DEXA (modify frequency per FRAX score) [place] Start: 1994 Breast cancer screen Breast cancer screen [place] Start: 1994 Colon cancer screen colonoscopy Colon cancer screen colonoscopy [place] Start: 1994 Screening for malignant neoplasm of breast Breast cancer screen [place] Start: 1994 Screening for malignant neoplasm of colon Colon cancer screen colonoscopy [place] Start: 1994 Shingles Vaccine (1 of 2) Shingles Vaccine (1 of 2) [place] Start: 1984 Lipid screen Lipid screen [place] Start: 1965 Screening for malignant neoplasm of cervix [facility] Start: 10-26-1963 DTaP/Tdap/Td vaccine (1 - Tdap) DTaP/Tdap/Td vaccine (1 - Tdap) [place] Start: 10-26-1963 Third diphtheria, tetanus and acellular pertussis (DTaP) vaccination [facility] Start: 10-26-1963 [facility] Start: [facility] BP CONTROLLED (<130/80) BP CONTROLLED (<130/80) [facility] Start: 1962 HEPATITIS C SCREENING HEPATITIS C SCREENING [facility] Start: 1954 Lipid panel Lipid screen [place], [place] Start: 1944 Creatinine measurement Creatinine monitoring [place], [place] Start: 1944 Creatinine monitoring Creatinine monitoring [place], [place] Start: 1944 Hepatitis C screen Hepatitis C screen [place] Start: 1944 Hepatitis C screening [facility] Start: 1944 Potassium monitoring Potassium monitoring [place] Start: 1944 Screening for osteoporosis [facility] Start: 1944 Tetanus vaccination [facility] End: 01-09-2019 Blood glucose - POCT Blood glucose - POCT Point of Care Testing Routine One Time for 1 Occurrences starting 01/09/2019 until 01/09/2019 [place] Comment on above: One Time for 1 Occurrences starting 12/14 until 01/09/2019 ECG COMPLETE [facility] Comment on above: Ordered: 05/31/2024 End: 05-31-2025 Echocardiography ECHO Cardiology Routine Atrial fibrillation, unspecified type (HCC) 1 Occurrences starting 05/31/2024 until 05/31/2025 [facility] Comment on above: 1 Occurrences starting 05/31/2024 until 05/31/2025 Patient referral [facility] Work Phone: End: 01-09-2019 Pulse Oximetry Spot Check Pulse Oximetry Spot Check Respiratory Care Routine One Time for 1 Occurrences starting 01/09/2019 until 01/09/2019 [place] Comment on above: One Time for 1 Occurrences starting 12/14 until 01/09/2019 End: 08-02-2024 PV FLUOROSCOPY OR U [facility] End: 08-02-2024 Standard ECG [facility] Immunizations Immunization Date Immunization Notes Care Provider Paramjit hassan 07-23-2020 SARS-CoV-2 (COVID-19 ) Ad26 vaccine, recombinant SILVINO HA DO [facility] Comment on above: Result Comment: 2024: [id number] 02-27-2020 influenza, high dose seasonal, preservative-free Kameron Caruso MD Work Phone: [facility] 02-27-2020 influenza virus vaccine, unspecified formulation Kameron Caruso MD Work Phone: [facility] 10-24-2019 pneumococcal conjuga te vaccine, 13 valent Kameron Caruso MD Work Phone: [facility] 10-24-2019 zoster vaccine recombinant Kameron Caruso MD Work Phone: [facility] 07-25-2019 influenza virus vaccine, unspecified formulation SILVINO HA DO [facility] 07-25-2019 influenza, seasonal, injectable Kameron Caruso MD Work Phone: [facility] 07-25-2019 zoster vaccine recombinant Kameron Caruso MD Work Phone: [facility] 04-13-2015 influenza virus vaccine, unspecified formulation SILVINO SCHEBEULAH DO [facility] 05-01-2014 influenza virus vaccine, unspecified formulation SILVINO SCHEATZSHITAL DO [facility] 05-01-2014 influenza, high dose seasonal, preservative-free Kameron Caruso MD Work Phone: [facility] 02-22-2012 influenza virus vaccine, unspecified formulation Kameron Caruso MD Work Phone: [facility] Work Phone: 03-19-2007 influenza virus vaccine, unspecified formulation Kameron Caruso MD Work Phone: [facility] Work Phone: Payers Date Payer Category Payer Medicare [id number] 2024 Unknown [id number] 2024 Self-pay 2018 Medicare [employer] RE ADVANTAGE [facility] xxxxxxxxxxx 2018-Present [phone] [address] [place] [address] xxxxxxxxxxx [id number] 2018 Unknown [id number] 2013 Medicare [place] [id number] 2013-Present [phone] [address] [place] [address] [facility] [id number] 2013 Medicare [id number] .[id number] 2013 Medicare (Managed Care) 1.2. [id number] 2013 Medicare [id number] 1944 Unknown [id number] 2.16.840.1.907030.3.579.2 .627 1944 Unknown [id number] 2.16.840.1.799547.3.579.2 .732 1944 Unknown [id number] 2.16.840.1.063919.3.579.2 .627 1944 Unknown [id number] 2.16.840.1.425441.3.579.2 .594 1944 Unknown [id number] 2.16.840.1.417771.3.579.2 .594 Unknown [id number] 2.16.840.1.487658.3.579.2 .462 Unknown [id number] 2.16.840.1.842031.3.579.2 .462 Unknown [id number] 2.16.840.1.779604.3.579.2 .462 Unknown [id number] 2.16.840.1.955238.3.579.2 .462 Unknown [id number] 2.16.840.1.872867.3.579.2 .462 Unknown [id number] 2.16.840.1.763530.3.579.2 .462 Unknown [id number] 2.16.840.1.557299.3.579.2 .462 Unknown [id number] 2.16.840.1.967917.3.579.2 .462 Unknown [id number] 2.16.840.1.140441.3.579.2 .462 Unknown [id number] 2.16.840.1.432171.3.579.2 .462 Unknown [id number] 2.16.840.1.589485.3.579.2 .462 Unknown [id number] 2.16.840.1.404195.3.579.2 .462 Unknown [id number] 2.16.840.1.139689.3.579.2 .462 Unknown [id number] 2.16.840.1.970422.3.579.2 .462 Unknown [id number] 2.16.840.1.285598.3.579.2 .462 Unknown [id number] 2.16.840.1.466229.3.579.2 .462 Unknown [id number] 2.16.840.1.922756.3.579.2 .462 Unknown [id number] 2.16.840.1.019742.3.579.2 .462 Unknown [id number] 2.16.840.1.711753.3.579.2 .462 Unknown [id number] 2.16.840.1.474519.3.579.2 .462 Unknown [id number] 2.16.840.1.790165.3.579.2 .462 Unknown [id number] 2.16.840.1.854870.3.579.2 .462 Unknown [id number] 2.16.840.1.518140.3.579.2 .462 Unknown [id number] 2.16.840.1.758842.3.579.2 .462 Unknown [id number] 2.16.840.1.844326.3.579.2 .462 Unknown [id number] 2.16.840.1.603702.3.579.2 .462 Social History Date Type Detail Facility Start: 01-09-2019 End: 08-02-2024 Tobacco smoking status NHIS Never smoker [facility] Start: 01-09-2019 End: 11-25-2022 Alcohol intake Never [facility] Work Phone: Start: 12-24-2018 History SDOH Alcohol Frequency 1 [place], [place] Start: 1945 Sex Assigned At Not on file [place] Start: 10-16-2019 Alcohol intake Lifetime non-d hortencia (finding) [place] Exposure to SARS-CoV -2 (event) Unable to assess [place] Start: 05-18-2021 End: 06-26-2024 Alcohol intake Current non-drinker of alcohol (finding) [facility] Start: 11-13-2021 End: 03-02-2022 Exposure to SARS-CoV-2 (event) Not sure [facility] Start: 02-02-2011 End: 03-02-2022 Tobacco use and exposure Smokeless tobacco non-user [facility] Start: 11-25-2022 End: 11-28-2023 History of Social function [facility] Work Phone: Adult Depression Screening Assessment 0 [facility] Work Phone: Start: 06-22-2005 End: 08-02-2024 Sex Female (finding) [facility] Start: 1945 Sex Assigned At Female [facility] Sexual Orientation [facility] Medical Equipment Procedure Code Equipment Code Equipment Original Text Equipment Identifier Dates [id number], [id number], [id number] Start: 11-30-2020 End: 04-08-2023 Comment on above: [...] Facility 09-09-2024 Functional Status Room check performed [facility] 09-09-2024 Functional Status [facility] 09-09-2024 Functional Status Skin Care Prev entative Intervention(s) heel(s)s elevated [facility] 09-08-2024 Functional Status [facility] 09-08-2024 [facility] 09-06-2024 Functional Status 11pm-7am [facility] 09-06-2024 Functional Status Antiembolism S tocking On/Re-applied bilateral knee high [facility] 09-05-2024 Functional Status Oral Care Maximum wilfred tance [facility] 09-05-2024 Functional Status [facility] 09-05-2024 Functional Status Done [facility] 09-04-2024 Functional Status [facility] 09-04-2024 Functional Status [facility] 09-03-2024 Functional Status NPO Status Maintained A ulabel [place] 09-03-2024 Functional Status None [facility] 09-03-2024 Functional [facility] Functional Status [facility] 08-29-2024 Functional Status [facility] 08-27-2024 Functional Status Orthotics, Dev ice Worn Per Schedule Yes [facility] [place] 08-27-2024 Functional Status [facility] 08-26-2024 Functional Status [facility] 08-23-[address] [facility] 08-23-2024 Functional Status Breakfast Percent 25 [facility] 08-20-[address] [facility] 08-19-[address] [facility] 08-16-2024 Functional Status Single level h ome, basement laundry [facility] 08-16-2024 Functional Status Outside Stairs Rail Rail on left going up [facility] 08-15-2024 Functional Status Sensory Defici ts Speech deficit [facility] 10-14-2014 Are you deaf, or do you have serious difficulty hearing No [facility] 10-14-2014 Are you blind, or do you have serious difficulty seeing, even when wearing glasses No [facility] 10-14-2014 Do you have serious difficulty walking or climbing stairs No [facility] 10-14-2014 Do you have difficul ty dressing or bathing No [facility] 10-14-2014 Because of a physica l, mental, or emotional condition, do you have difficulty doing errands alone such as visiting a physician's office or shopping No [facility] Mental Status Date Assessment Result Facility 09-09-2024 Mental Status Does not interact [facility] 09-08-2024 Mental Status [facility] 09-08-2024 Mental Status [facility] 08-02-2024 Cognitive function Awake;Alert;F ollows Commands [facility] Work Phone: 10-14-2014 Because of a physica l, mental, or emotional condition, do you have serious difficulty concentrating, remembering, or making decisions No [facility] Clinical Notes 11-03-2020 to 10-02-2024 Note Date & Type Note Facility 10-02-2024 Evaluation note Diagnosis Onset Date Resolution Acute ischemic right MCA stroke acute October 02, 2024 9:29am Essential hypertension acute Ma y 2024 9:29am Hyperlipidemia acute October 02, 2024 9:29am Paroxysmal atrial fibrillation with RVR acute October 02, 2024 9:29am [facility] Work Phone: 1(439) 515-697604-28-2025 Note Discharge Instructions Thank you for allowing [facility] to assist you with your healthcare needs. [...] KAMERON CARUSO MD When:Within 3-7 days Where:[address] [place] [address]- Additional Information: Please schedule follow up PCP appointment for after discharge from SNF, Bring discharge instructions with you Follow Up with RIMMA POWERS MD When:10/08/2024 04:00 PM EDT Where:[facility] ([address], [place]) Additional Information: Neurosurgeon The Following Activity and [...] , standard right Seat cushion, 99 month(s), [facility] [phone], 09/02/24 8:22:00 EDT Transfer of Care Wound [...] depending on your insurance coverage. Check with [employer] company about what is covered. Keeping follow-up [...] 08/04/2017 Document Revised: 05/04/2018 Document Reviewed: 08/04/2017 [employer] Patient Education 2020 [employer] Additional Information VACCINATE! IT SAVES LIVES! Members of the community who have not yet received the COVID-19 vaccine and would like to receive it can visit one of [facility] vaccine clinics. There are many vaccine clinic locations within the [facility]. For locations and available times, please visit [email or web address] It is important to note that some COVID mobile vaccine clinics are held outdoors and may be canceled in rainy or stormy conditions. To learn more about pediatric vaccinations (ages 5-11), we invite you to visit the [facility] webpage. [email or web address] learn more about the COVID-19 vaccine, we invite you to visit the CDC website for a list of frequently asked questions.https://www.cdc.gov/coronavirus/2019-ncov/vaccines/faq.html [employer] Patient Portal Access Instructions: Stay connected with your healthcare team and access your personal medical information anytime with the [employer] Patient Portal. Please follow the directions below to create your [employer] account: 1.Access the email account you provided upon registration to the hospital/physician office.2.Look for an invitation email from [facility].3.Open the email and access the invitation link: AcceptInvitation to [employer].4.Fill in the required richards to create your account. To access your account, visit WalkMe/[email or web address]. Click the blue button labeled "Access Patient Portal" and then log in with the username and password that you created in the steps above. You will be able to view your test results, lab results, a summary of your visits, upcoming appointments and more. There is also a convenient messaging option where you can send secure messages to your p PulsePointvider. In addition, you will have the ability to download any documents or summaries to your computer and/or send the information securely to a physician. Remember that your healthcare information is confidential, so carefully consider who you will allowto register on the [employer] Patient Portal for access to your information. You can also access the [employer] Patient Portal on the [employer] Anywhere dahlia. Simply click on "Patient Portal" and then log into your account. If you would like to receive a full copy of your medical records, please contact the [facility] Medical Records Department by calling [phone], Monday through Monday between 8 a.m. and [...] Call your local pharmacy or go to [email or web address] to find one close to you.3.Make use of household items: Use cat litter or old coffee grounds to dispose medications if other options arenot available. Mix your drugs with these household products, seal them in an airtight container andthrow it into the garbage. Call [facility]: [phone] to be sure your drugs can be [...] aware that I should contact my doctor. Patient/Chiropractic Assistant Signature: Date/Time: Relationship to Patient: Witness Name/Signature: Date/Time: Ashley [id number] Note Discharge Instructions Thank you for allowing Ashley to assist you with your healthcare needs. [...] KAMERON CARUSO MD When:Within 3-7 days Where:[address] [place] [address]- Additional Information: Please schedule follow up PCP appointment for after discharge from SNF, Bring discharge instructions with you Follow Up with RIMMA POWERS MD When:10/08/2024 04:00 PM EDT Where:[facility] ([address], [place]) Additional Information: Neurosurgeon The Following Activity and [...] , standard right Seat cushion, 99 month(s), Ashley [phone], 09/02/24 8:22:00 EDT Transfer of Care Wound [...] depending on your insurance coverage. Check with yourGaelectric company about what is covered. Keeping follow-up [...] Document Reviewed: 08/04/2017 Elsevier Patient Education 2020 [employer] Additional Information VACCINATE! IT SAVES LIVES! Members of the community who have not yet received the COVID-19 vaccine and would like to receive it can visit one of [facility] vaccine clinics. There are many vaccine clinic locations within the [facility]. For locations and available times, please visit [email or web address].coronavirus.[place].gov/. It is important to note that some COVID mobile vaccine clinics are held outdoors and may be canceled in rainy or stormy conditions. To learn more about pediatric vaccinations (ages 5-11), we invite you to visit the [employer] webpage. https://www.Squares.org/pages/7843-Pgsnd-Hlfjuefrtep-Qoptytexqk-Yiebm-Eio stions.htmlTo learn more about the COVID-19 vaccine, we invite you to visit the CDC website for a list of frequently asked questions.https://www.cdc.gov/coronavirus/2019-ncov/vaccines/faq.html [employer] Patient Portal Access Instructions: Stay connected with your healthcare team and access your personal medical information anytime with the [employer] Patient Portal. Please follow the directions below to create your [employer] account: 1.Access the email account you provided upon registration to the hospital/physician office.2.Look for an invitation email from [facility].3.Open the email and access the invitation link: AcceptInvitation to [employer].4.Fill in the required richards to create your account. To access your account, visit [email or web address]/[email or web address]. Click the blue button labeled "Access Patient [...] who you will allowto register on the [facility] for access to your information. You can also access the [facility] on the [facility] Anywhere dahlia. Simply click on "Patient Portal" and then log into your account. If you would like to receive a full copy of your medical records, please contact the [facility] Medical Records Department by calling [phone], Monday through Monday between 8 a.m. and [...] Call your local pharmacy or go to [email or web address] to find one close to you.3.Make use of household items: Use cat litter or old coffee grounds to dispose medications if other options arenot available. Mix your drugs with these household products, seal them in an airtight container andthrow it into the garbage. Call [facility]: [phone] to be sure your drugs can be [...] aware that I should contact my doctor. Patient/Chiropractic Assistant Signature: Date/Time: Relationship to Patient: Witness Name/Signature: Date/Time: Ashley [id number] Physical medicine and rehab Discharge summary Date [...] in discharge valuation. She was admitted to [facility] unit from [facility] stay 08/02 - 08/15 who has a history of CAD, DM2, atrial fibrillation and hypertension whopresented to the ER after noting left-sided weakness and slurred speech. Originally presented to [facility] where CT head was obtained showing [...] self-care assistance needs decision made to request detention facility. Approval is requested. Patient was to [...] Ordered -- 08/15/24 17:18:00 EDT, AMI HEATON APRN-FOUNDER PRESIDENT AND CEO, [employer] per policy Physical Exam Vitals [...] oral tablet)1 tab(s) PEG tube every day. yskrxlewzaiut90 Microgram PEG tube once a day. metoprolol [...] KAMERON CARUSO MD When:Within 3-7 days Where:[address] [facility] [place] [address]- Additional Information: Please schedule follow up PCP appointment for after discharge from SNF, Bring discharge instructions with you Follow Up with RIMMA POWERS MD When:10/08/2024 04:00 PM EDT Where:[facility] ([address], [place]) Additional Information: Neurosurgeon Follow Up Appointments No qualifying data available. Follow Up Labs/Studies Discharge Labs No Follow-up Labs Discharge Studies No Follow-up Studies Discharge Diet No qualifying data available. Discharge Activity No qualifying data available. Condition on Discharge Stable Discharge Disposition penitentiary facility Information Provided To Patient and family Time Spent Greater than 35 minutes Digitally Signed by SILVINO HA DO on 09/09/2024 01:46 PM Ashley [id number] Nurse Progress note Nursing GG Entered On: 09/09/2024 10:55 EDT Performed On: 09/09/2024 10:55 EDT by Abigail Rodas RN Nursing GG's OT GG Grid Eating : Not Completed Abigail Rodas RN - 09/09/2024 10:55 EDT Digitally Signed by Abigail Rodas RN on 09/09/2024 10:55 AM Ashley [id number] Nurse Progress note Nursing GG Entered On: 09/08/2024 17:39 EDT Performed On: 09/08/2024 17:39 EDT by Rob Alarcon RN Nursing GG's OT GG Grid Eating : Not Completed Oral Hygiene : Not Completed Toilet Hygiene : Substantial/Maximal Assistance Toilet Transfer : Substantial/Maximal Assistance Rob Alarcon RN - 09/08/2024 17:39 EDT Digitally Signed by Rob Alarcon RN on 09/08/2024 05:39 PM Ashley GarciaVftxyyhd74-15-0827 Nurse Progress note Pt had 250ml residual, 12:30pm bolus was held! Digitally Signed by Rob Alarcon RN on 09/08/2024 12:47 PM Ashley GarciaJwchzhrz18-92-6432 Physical medicine and rehab Progress note Rehab [...] and slurred speech. She originally presented to [facility] with CT of the head was obtained showed no acute hemorrhage or large territory stroke. CTA showed mid right M1 occlusion however patient was not a TNK candidate. She was then transferred to a [facility] for further management. CT of [...] 80 mg 1 tab(s), PEG, Daily balsam Olney-castor oil topical 87 mg-788 mg/g oint 60g [...] Rate64(SEP 05 16:46)64(SEP 05 16:46)85(SEP 05 09:40) OTM991(SEP 05 16:36)138(SEP 05 16:36)H 158(SEP 05 09:52) [...] SILVINO HA DO on 09/06/2024 12:34 PM [facility] Discharge [facility] Patient Education 09/05/2024 14:15:00 [...] depending on your insurance coverage. Check with yourGaelectric company about what is covered. Keeping follow-up [...] 08/04/2017 Document Revised: 05/04/2018 Document Reviewed: 08/04/2017 [employer] Patient Education 2020 [employer]. Follow Up Care 08/15/2024 08:51:25 With:RIMMA POWERS MD Address: [facility] ([address], [place]) When:10/08/2024 16:00:00 Comments:Neurosurgeon With:JONNIE BANSAL MD Address: [facility] When: Unknown Comments:GI, No appointment needed until PEG is ready to be removed or concerns arise With:KAMERON CARUSO MD Address: [address] [place] [address]- When:3-7 days Comments:Please schedule follow up PCP appointment for after discharge from SNF, Bring discharge instructions with you Ashley Warnern 04-24-2025 Note Subjective Patient seen this morning [...] less than 3 seconds. Ongoing hemiparesis VITALS UhqmqlYlknLSOlgasJQJjO6MQT6DkecMv(kg) 09/05 09:5236.3--232418CW 09/05 09:40----85----RA 09/04 23:3236.6--994439AM 09/04 21:2436.5--316743IZ 09/04 16:01----72----RA 24 Hr Tmax: 36.6 at [...] tab(s), PEG, Daily, 08/15/24 17:09:00 EDT balsam Olney-castor oil topical (Venelex 788 mg-87 mg/g topical [...] SBP (mmHg) < 110, 1st dose location: [facility], , 08/15/24 17:09:00 EDT Active PRN Meds: [...] 2 minutes, REPEAT x1., 1st dose location: [facility], 0, 08/15/24 1... glucose (Dextrose [...] None Problems (6) CVA (cerebral vascular accident) (722888760) Diabetes mellitus (530768913) Dysphagia (92904995) Hyperlipidemia (68652552) Hypertension (7833781706) Osteoarthritis (6635690954) ASSESSMENT/PLAN: Right basal ganglia hemorrhage, status post thrombectomy with revascularization follow-up appointment with neurosurgery on 10/08. Continue work with physical and Occupational Therapy with goal to return home at discharge. reports that referrals have been sent to detention facilities yesterday. Currently has 4 options in [...] CATHERINE NEWMAN APRN-GARRETT on 09/05/2024 04:55 PM Ashley [id number] Physical medicine and rehab Progress note Subjective [...] area Neuro: Left upper extremity hemiparesis VITALS PhajpoVycgNVKyoosBBNqL7WTL3OgdpAd(kg) 09/04 23:3236.6--638834KE 09/04 21:2436.5--520316DX 09/04 16:01----72----RA 09/04 12:10--------97RA 09/04 10:5435.9--983176HR 24 Hr Tmax: 36.6 at 09/04 23:32 [...] SBP (mmHg) < 110, 1st dose location: [facility], 1, 08/15/24 17:09:00 EDT Active [...] 2 minutes, REPEAT x1., 1st dose location: [facility], 0, 08/15/24 1... glucose (Dextrose [...] None Problems (6) CVA (cerebral vascular accident) (885036961) Diabetes mellitus (766679817) Dysphagia (68631262) Hyperlipidemia (34334782) Hypertension (2021718394) Osteoarthritis (5068566711) ASSESSMENT/PLAN: Acute right basal ganglia hemorrhage with [...] sugars closely. Follow-up with neurosurgery 10/08 [facility] protocol in place with ice chips only, [...] NANDO HUTTON DO on 09/05/2024 10:12 AM Ashley [id number] Physical medicine and rehab Progress note Rehab [...] and slurred speech. She originally presented to [facility] with CT of the head was obtained showed no acute hemorrhage or large territory stroke. CTA showed mid right M1 occlusion however patient was not a TNK candidate. She was then transferred to a [facility] for further management. CT of [...] Rate64(SEP 03 15:52)64(SEP 03 15:52)90(SEP 03 08:28) BOS446(SEP 04 05:38)112(SEP 04 05:38)127(SEP 03 08:00) DBP70(SEP [...] SILVINO HA DO on 09/04/2024 11:55 AM Ashley WarnerJiixvlmw17-33-9255 Note Subjective Patient states she is doing [...] area Neuro: Left upper extremity hemiparesis VITALS IuargiKebuRUGgmhqJOAyF1FUG1NgrwOh(kg) 09/03 21:4136.4--013741XC 09/03 15:52----64----RA 09/03 08:46 RA 09/03 08:28----90----RA 09/03 08:0036.4--386972BW 24 Hr Tmax: 36.4 at 09/03 21:41 [...] (mmHg) < 110, 1st dose location: [facility], 1, 08/15/24 17:09:00 EDT oxybutynin (oxybutynin 5 [...] 2 minutes, REPEAT x1., 1st dose location: [facility], 0, 08/15/24 1... glucose (Dextrose [...] None Problems (6) CVA (cerebral vascular accident) (951653543) Diabetes mellitus (939128507) Dysphagia (38073647) Hyperlipidemia (96981964) Hypertension (9556808631) Osteoarthritis (4152160797) ASSESSMENT/PLAN: Acute right basal ganglia hemorrhage with [...] NANDO HUTTON DO on 09/05/2024 08:57 AM Ashleynany DyeLojmmzmt57-47-7820 Note Subjective Patient states that she is [...] area Neuro: Left upper extremity hemiparesis VITALS ZassyfGvjbLWKilywMEJzK1POB3RbrvDw(kg) 09/03 00:2636.3--498271FN 09/02 21:5136.2--131159NV 09/02 16:56----88--98RA 09/02 10:40 RA 09/02 09:0936.0--392187YM 24 Hr Tmax: 37.0 at 09/02 05:55 [...] SBP (mmHg) < 110, 1st dose location: [facility], 1, 08/15/24 17:09:00 EDT oxybutynin [...] 2 minutes, REPEAT x1., 1st dose location: [facility], 0, 08/15/24 1... glucose (Dextrose [...] None Problems (6) CVA (cerebral vascular accident) (075561599) Diabetes mellitus (443018928) Dysphagia (54621847) Hyperlipidemia (13534278) Hypertension (2372328342) Osteoarthritis (3370620149) ASSESSMENT/PLAN: Acute right basal ganglia hemorrhage with [...] rs closely. Follow-up with neurosurgery 10/08 [facility] protocol in place with ice chips only, [...] dictation software and may contain typographical errors. ISoheilaburn RN, am scribing for , and in the presence of Dr. Hutton. I, Dr. Hutton, personally performed the services described in this documentation, as scribed by, Jhonatan ENRIQUEZ in my presence and it is both accurate and complete. Digitally Signed by NANDO HUTTON DO on 09/05/2024 08:57 AM Ashley Hrxjllst04-90-3447 Note* Exam Date Time Procedure Performing Provider Status 09/02/24 2:[address] Head or Brain w/o Contrast Brenda MCCLELLAN MD; Auth (Verified) [id number] ORIGINAL HISTORY: Lethargy COMPARISON: No TECHNIQUE: Routine [...] Date: 09/02/2024 3:10:44 PM Ordering Provider: SILVINO Dyelawn04-18-2025 Telephone encounter Note* Telephone Encounter - Fouzia Miller LPN - 08/30/2024 10:09 AM EDT Marya with Ashley [facility] notified. [facility]04-18-2025 Miscellaneous Notes* Telephone Encounter - Fouzia Miller LPN - 08/30/2024 10:09 AM EDT Marya with [facility] notified. * Telephone Encounter - Mj Glover APRN.CNP - 08/30/2024 9:19 AM EDT Please let know that Dr. Caruso's team will follow HH orders. Okay to proceed. Mj Glover APRN.CNP * Telephone Encounter - Jaiden Paulino, ZOE - 08/30/2024 9:07 AM EDT [facility] reports patient was in [facility] with dx: stroke, and transferred to [facility]. Pt will be discharged from [facility] on 09/07/24 to home with [facility] SN PT OT ST & HHAide. Asking if pcp agreeable to follow for C. Please phone Marya with verbal: [phone] documented in [facility]04-[facility] Telephone encounter Note * Telephone Encounter - Mj Glover APRN.CNP - 08/30/2024 9:19 AM EDT Please let know that Dr. Caruso's team will follow HH orders. Okay to proceed. Mj Glover APRN.CNP [facility]04-18-2025 Telephone encounter Note* Telephone Encounter - Jaiden Paulino, ZOE - 08/30/2024 9:07 AM EDT [facility] reports patient was in [facility] with dx: stroke, and [facility]. [facility] to home with [facility] SN PT OT ST & HHAide. Asking if pcp agreeable to follow for [facility]. Please phone Marya with verbal: [phone] [facility]04-14-2025 Note REFERRING PHYSICIAN: Silvino Ha DO. CONSULTING PSYCHOLOGIST: Matthew Gibson, PhD. REASON FOR REFERRAL: Neuropsychological exam. HISTORY OF PRESENT ILLNESS: Ms. Acuna is a 78-year-old right-handed white female admitted to [facility] from [facility] on 08/15/2024 after developing left-sided weakness and slurred speech. Initially seen at [facility] where brain CT was negative.CTA then [...] mild concussions suffered after a career in [employer]. No residual deficits reported. 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 MENTAL HEALTH HISTORY: No [...] of NPO. and Mrs. Acuna live in [place]. 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 She has a high school diploma from her hometown in [place], [place]. TEST RESULTS: I used the Cognistat, [...] be determined. MATTHEW GIBSON, PhD GM/NTS JOB#: [id number] DICTATION ID#: [id number] Digitally Signed by MATTHEW GIBSON PhD on 08/27/2024 08:21 AM [facility]uyklyvx00-65-5490 Note* Exam Date Time Procedure Performing Provider Status 08/25/24 1:46 PM XR Hand and Wrist 6 Views Left Buck DUNNE DO; Auth (Verified) [id number] ORIGINAL EXAMINATION: 3 XRAY VIEWS OF THE [...] Views Left JAMAR DUNNE ; Auth (Verified) [id number] ORIGINAL EXAMINATION: TWO XRAY VIEWS OF THE [...] Views Left JAMAR DUNNE ; Auth (Verified) [id number] ORIGINAL EXAMINATION: TWO XRAY VIEWS OF THE [...] resident's findings and interpretation. Interpreted by: Jamar uDnne DO Preliminary Report By: Padilla Barrera Electronically signed By Jamar Dunne DO Dictated Date: 08/25/2024 1:52:15 PM Prelim Date: 08/25/2024 1:55:41 PM Sign Date: 08/25/2024 2:26:11 PM Ordering Provider: JACKLYN Scott Usebuwpg31-55-0450 Note* Exam Date Time Procedure Performing Provider Status 08/18/24 3:08 PM XR Chest 1 View Contributor_system, FUJ I; Auth (Verified) [id number] ORIGINAL EXAMINATION: ONE XRAY VIEW OF THE [...] Date: 08/18/2024 3:14:15 PM Ordering Provider: NANDO Scott [id number] Evaluation + Plan noteExtracted from: Title:Clinical Document Author:EZEQUIEL HUSTON RN-FOUNDER PRESIDENT AND CEO Date:08/16/24 Acute Inpatient Rehab Histor y and Physical Date of Service: 08/16/2024 Date of Admission: 08/15/2024 Attending Physician: Dr. Ha [employer] 1.1 left body involvement, right brain stroke Etiologic Diagnosis Hemorrhagic infarct involving right basal ganglia, mass effect with effacement of right lateral ventricle, tiny infarct in right cerebellum History of Present Illness 78-year-old female noted to home in inpatient rehab from [facility] Hospital stay 08/02 - 08/15 who is past medical history of coronary artery disease, diabetes mellitus type 2, atrial relation, hypertension, osteoarthritis, and hyperlipidemia who presented to the emergency room with noted left-sided weakness and slurred speech. She originally presented to [facility] with CT of the head was obtained showed no acute hemorrhage or large territory stroke. CTA showed mid right M1 occlusion however patient was not a TNK candidate. She was then transferred to a [facility] for further management. CT of [...] feedings. Patient deemed medically stable transferred to [facility]hab unit for physical and occupational [...] with spouse, first- floor set up. Primary Inside Sales Advisor: Self. Safe place to go: Yes. Lives [...] Rate80(AUG 15 20:06)80(AUG 15 20:06)80(AUG 15 20:06) IKZ361(AUG 16 00:03)128(AUG 16 00:03)140(AUG 15 17:47) DBP76(AUG 16 00:03)76(AUG 16 00:03)80(AUG 15 17:47) 36hr Labs 08/15 1805 Blood Glucose, Tycrklkdh750D Blood Glucose, Nymdvliux285P Blood Glucose TSee Flowsheet Assessment/Plan Debility and [...] and it is both accurate and complete. Ashley Garcia 04-04-2025 Physical medicine and rehab Consult note INPATIENT REHAB MEDICAL CONSULT DATE OF ADMISSION: 08/16/2024 CC: Acute right basal hemorrhage HISTORY OF PRESENT ILLNESS: This is a 78-year-old female admitted to [facility] re[facility] unit from [facility] stay 08/02 - 08/15 who has a history of CAD, DM2, atrial fibrillation and hypertension who presented to the ER after notingleft-sided weakness and slurred speech. Originally presented to [facility] where CT head was obtained showing [...] was deemed medically stable and transferred to [facility] unit for physical and occasional [...] Rate80(AUG 15 20:06)80(AUG 15 20:06)80(AUG 15 20:06) OXL233(AUG 16 00:03)128(AUG 16 00:03)140(AUG 15 17:47) DBP76(AUG [...] reviewed. 36hr Labs 08/15 1805 Blood Glucose, Nlhnevdkv440E Blood Glucose, Sahqisosb573M Blood Glucose TSee Flowsheet ASSESSMENT AND PLAN: [...] will follow during acute rehabilitation stay at [facility] with the goal of [...] by CATHERINE NEWMAN on 08/17/2024 04:53 PM [facility]vqpjku11-28-1255 Physical medicine and rehab History and physical [...] noted to home in inpatient rehab from [facility] stay 08/02 -08/15 who is past medical history of coronary artery disease, diabetes mellitus type 2, atrial relation, hypertension, osteoarthritis, and hyperlipidemia who presented to the emergency room with noted left-sided weakness and slurred speech. She originally presented to [facility] with CT of the head was obtained showed no acute hemorrhage or large territory stroke. CTA showed mid right M1 occlusion however patient was not a TNK candidate. [facility] [...] feedings. Patient deemed medically stable transferred to [facility] unit for physical and occupational [...] with spouse, first- floor set up. Primary Inside Sales Advisor: Self. Safe place to go: Yes. Lives [...] Rate80(AUG 15 20:06)80(AUG 15 20:06)80(AUG 15 20:06) RUZ113(AUG 16 00:03)128(AUG 16 00:03)140(AUG 15 17:47) DBP76(AUG 16 00:03)76(AUG 16 00:03)80(AUG 15 17:47) 36hr Labs 08/15 1805 Blood Glucose, Tosbpnvup140G Blood Glucose, Welmorhyr483K Blood Glucose TSee Flowsheet Assessment/Plan Debility and [...] by EZEQUIEL HUSTON on 08/22/2024 05:17 AM Ashley GarciaNxbihnih72-61-5184 Miscellaneous Notes* Nursing Notes - Robson Steel [...] pacing over x3-5 sessions Outcome: Ongoing Problem: ARCHEOLOGY FACULTY MEMBER - Cognition Goal: Orientation Log - Patient [...] pacing over x3-5 sessions Outcome: Ongoing Problem: ARCHEOLOGY FACULTY MEMBER - Cognition Goal: Orientation Log - Patient [...] Absence of Hospital-Acquired Illness or Injury 08/10/2024 180 by Abigail Trinh RN Outcome: Progressing 08/10/2024 1808 by Abigail Trinh RN Outcome: Progressing Goal: Optimal Comfort and Wellbeing 08/10/2024 180 by Abigail Trinh RN Outcome: Progressing 08/10/2024 180 by Abigail Trinh RN Outcome: Progressing * [...] for buried bumper syndrome. - If used mcfp, initial PEG should be changed in 6-12 months depending on tube condition. - No plans for repeat outpatient EGD at this time based on clinical status Jonnie Mccabe MD Division of Gastroenterology, Hepatology, and Nutrition Clinical Fellow PGY-4 Pager: [phone] * Plan of Care - Manisha Cheema [...] or what the specific medication was. DaughterKeagan [phone] would be able to answer questions. Catherine [...] 08/07/2024 5:00 PM EDT On admission to [facility], from another [facility] inpatient unit a dual [...] Outcome: Progressing * Plan of Care - Rahcell Blake OT - 08/06/2024 10:06 AM EDT [...] oropharyngeal swallow function to most appropriately guide ARCHEOLOGY FACULTY MEMBER plan of care Outcome: Met Goal: Bolus [...] readiness for diet advancement Outcome: Met Problem: ARCHEOLOGY FACULTY MEMBER - Cognition Goal: Orientation Log - Patient [...] better assess deficits and most appropriately guide ARCHEOLOGY FACULTY MEMBER plan of care Outcome: Met Goal: Attention: [...] of Care: 1. Diet: NPO. Advancement per team/ARCHEOLOGY FACULTY MEMBER recommendation 2. Ordered TF: Glucerna 1.5 @ [...] readiness for diet advancement Outcome: Ongoing Problem: ARCHEOLOGY FACULTY MEMBER - Cognition Goal: Orientation Log - Patient [...] better assess deficits and most appropriately guide ARCHEOLOGY FACULTY MEMBER plan of care Outcome: Ongoing * Nursing Notes - Aniyah Torre RN - 08/02/2024 6:13 PM EDT On admission to [facility], from [place] a dual RN initial assessment [...] from previous assessment. Pt transferred to [facility] via cart accompanied by Denae [...] under emergency consent. SURGEON(S): Prema Ramos MD SPORTS MARKETING COORDINATOR(S): None ANESTHESIA: Monitored anesthesia care DESCRIPTION OF [...] Freeclimb 70/Serjio 7 was advanced over a cityguruman microcatheter which was advanced over a synchro [...] - 08/02/2024 3:26 PM EDT Lindsay Acuna ([id number]) PRE OPERATIVE DIAGNOSIS Cerebral infarction due to [...] - Primary ANESTHESIOLOGIST Anesthesiologist: Tameka Ruth MD TEAROOM HOST/HOSTESS: Bebo Barboza APRN-TEAROOM HOST/HOSTESS SURGICAL STAFF Lettuce Trimmer: Rachell Ruffin, director of assessmentHay Stacker: Paulina Morales COMPLICATIONS None ESTIMATED BLOOD LOSS Minimal SPECIMENS No specimen sent * No specimens in log * Prema Ramos MD August 02, 2024 3:26 PM [facility] History of Present illness Narrative* OWEN Benavides - 08/15/2024 9:01 AM EDT Care Management Discharge Note Selected Continued Care - Admitted Since 08/02/2024 Destination Coordination complete. Service Provider Services Address Phone Fax Patient Preferred [facility] [address]], [place] [id number] -- -- Internal Comment last updated by OWEN Benavides 08/15/2024 0901 Report fax: [phone] Transport Request Mode of Transfer: [facility] Name of Discharge Transport Company: [employer] Discharge Transport ETA: 08/15/2024 @ 1030 Patient medically stable for discharge per physician/medical team. Pt has neurology appointment scheduled. Pt/ to schedule appointment with PCP. Patient/Chiropractic Assistant remain in agreement withthe discharge plan. BULMARO Allen Geophysical Operator * OWEN Benavides - 08/14/2024 3:17 PM EDT Placement Plan Expected Discharge Date: 08/15/2024 Referred Level of Care: IPR Current Referrals and Status 1. Ashley Garcia-accepted IPR obtained precertification for Pt starting tomorrow. Pt is set-up to leave via ambulance tomorrow at 1030. CM updated Pt's by phone. IPR will provide CM with the best phone and fax numbersfor RN report tomorrow morning. BULMARO Allen Geophysical Operator * Marybeth Ayoub - 08/14/2024 2:51 PM EDT Care Management Progress Note Transportation for discharge arranged Mode of Transfer: (P) [facility] Name of Discharge Transport Company: (P) [employer] Discharge Transport ETA: (P) 08/15/2024 @ 1030 [facility] [address] [place] [id number] OWEN Morrell Geophysical Operator Database Technician [phone] * Jazzy Aguiar - 08/14/2024 9:47 AM [...] position Mobility Assessment/Intervention: Supine to Sit Mobility [place] Level: Supine->Sit: moderate assist (50% patient effort) Physical Assist: Supine->Sit: 2 person assist Bed Features/Set-up: Supine->Sit: Head of bed elevated, Use of bed rail Skilled Rationale: Verbal cues, Tactile cues, Hand placement, Positioning, Technique of activity Skilled Intervention/Details: Supine->Sit: Cues for technique of transfer and pt needing increased assistance for managing legs and trunk to EOB positioning Transfer Assessment/Intervention: Sit to Stand Transfer [place] Level: Sit->Stand: moderate assist (50% patient effort) [...] hand held support Stand to Sit Transfer [place] Level: Stand->Sit: moderate assist (50% patient effort) Physical Assist: Stand->Sit: 2 person assist Assistive Device: Stand->Sit: gait belt, hand held assist Skilled Rationale: Verbal cues, Tactile cues, Hand placement, Positioning, Controlled descent for sitting Skilled Intervention/Details: Stand->Sit: Cues for positioning with BSC and recliner, pt provided bilat hand held support and needing increased support for managing a controlled descent Bed-Chair Transfer [place] Level: Bed<->Chair: maximum assist (25% patient effort) [...] managing L side during transfer Toilet Transfer [place] Level: Toilet: moderate assist (50% patient effort) [...] person, Oriented to place, Oriented to situation ("[place]" "hospital" "September" "2024" "stroke") Following Commands: Follows [...] blocking Mobility Assessment/Intervention: Supine to Sit Mobility [place] Level: Supine->Sit: moderate assist (50% patient effort) [...] sitting) Transfer Assessment/Intervention: Sit to Stand Transfer [place] Level: Sit->Stand: moderate assist (50% patient effort) Physical Assist: Sit->Stand: 2 person assist Assistive Device: Sit->Stand: gait belt Skilled Rationale: Arm in arm, Patellar block, Ischial assist, Facilitate anterior shift, Full extension to upright positioning/posture, Finding/maintaining midline positioning Skilled Intervention/Details: Sit->Stand: repeat cues to avoid significant L lean with improvement last standing. x1 from EOB, x2 from BSC Stand to Sit Transfer [place] Level: Stand->Sit: moderate assist (50% patient effort) Physical Assist: Stand->Sit: 2 person assist Assistive Device: Stand->Sit: gait belt Skilled Rationale: Arm in arm, Controlled descent for sitting Skilled Intervention/Details: Stand->Sit: last trial assisted R hand to recliner arm rest and ongoing cues for wt shift to R Bed-Chair Transfer [place] Level: Bed<->Chair: maximum assist (25% patient effort) [...] Mobility Assessment/Intervention: Stairs Assessment/Intervention: Outcome Score(s): CURRENT [facility] Basic Mobility Inpatient Short Form Turning [...] with a railin - Total Assistance CURRENT [facility] Mobility Raw Score: 8 CURRENT [facility] Mobility Functional Limitation: 86.62% Impaired in [...] 10 Treating Therapist: Shaina Rosales PT, DPT [id number] 08/14/2024 Additional Details: PT Co-Eval/Treatment Information Co-evaluation/co-treatment [...] chair alarm Needs in reach. Time In: 0915 Time Out: 947 Total Visit Time: 33 minutes Total Treatment Time (skilled, billable minutes): 33 minutes Upon discontinuation of Acute Care Physical Therapy Services or patient discharge from the hospitalthis note represents the current Physical Therapy Discharge Summary. * Tanja Cason, ARCHEOLOGY FACULTY MEMBER - 08/14/2024 8:37 AM EDT Acute Care [...] on the below outcome measures/assessment score(s) and ARCHEOLOGY FACULTY MEMBER clinicaljudgment, discharge destination recommendation is: IPR Barriers to discharge home: 1:1 assist needed for IADL's including medication management and finances Supporting factors for discharge setting: Impaired swallow function limiting nutritional status andsafety with oral intake, Impaired cognitive skills limiting safety/insight Acute ARCHEOLOGY FACULTY MEMBER Outcomes Tracking Communicate basic wants and needs?: [...] independent carry over. Strong family support. Ongoing ARCHEOLOGY FACULTY MEMBER s indicated. Subjective information: Alert, present. SO referenced his notes from yesterday and reportedcarry over of exercises yesterday. Patient with zero recall Pain: Nonverbal indicator not present Precautions: Patient Safety Communication Prior to Visit: Nursing Lines/Tubes/Drains (Rehab Status): Telemetry, Tube feed Existing Precautions/Restrictions: fall Respiratory Status: O2 Sat (%): 96 % (08/14 0711) O2 Device: room air (08/14 09) Acute ARCHEOLOGY FACULTY MEMBER Goals Plan of Care by Tanja Cason ARCHEOLOGY FACULTY MEMBER at 08/14/2024 2:42 PM Version 1 of [...] RoM to achieve technique. Outcome: Ongoing Problem: ARCHEOLOGY FACULTY MEMBER - Cognition Goal: Orientation Log - Patient [...] next session: 08/14 - ongoing exercises, education ARCHEOLOGY FACULTY MEMBER Outcomes: FOIS 2 Speech Language Pathologist: RIKI [...] of session: none altered Needs in reach. ARCHEOLOGY FACULTY MEMBER Evaluation and Treatment Time Speech Therapy - Individual 48856: 14 Swallowing Dysfunction Treatment 02105: 14 Upon discontinuation of Acute Care Speech [...] on the below outcome measures/assessment score(s) and ARCHEOLOGY FACULTY MEMBER clinicaljudgment, discharge destination recommendation is: Inpatient Rehab Facility Barriers to discharge home: 1:1 assist needed for IADL's including medication management and finances Supporting factors for discharge setting: Impaired swallow function limiting nutritional status andsafety with oral intake, Impaired cognitive skills limiting safety/insight Acute ARCHEOLOGY FACULTY MEMBER Outcomes Tracking Communicate basic wants and needs?: [...] O2 Device: room air (08/13 710) Acute ARCHEOLOGY FACULTY MEMBER Goals Plan of Care by RIKI Blancas at 08/13/2024 11:10 AM Version 1 of [...] 10 reps this session. Outcome: Ongoing Problem: ARCHEOLOGY FACULTY MEMBER - Cognition Goal: Orientation Log - Patient [...] considerations: Cognition Patient Instruction/Education comments: Role of ARCHEOLOGY FACULTY MEMBER, presence and normalized frustration with cognitive-communicative impairments. Focused on memory this date and that patient does not recall education so perseverative questions are normal. Reviewed intermittent silent aspiration from MBS last weekand ongoing signs of dysphagia this session, will plan to coordinate timing for repeat instrumentalwith care team Plan for next session: 08/13 -fair ARCHEOLOGY FACULTY MEMBER Outcomes: [place] 2 Speech Language Pathologist: RIKI Blancas Time [...] of session: none altered Needs in reach. ARCHEOLOGY FACULTY MEMBER Evaluation and Treatment Time Speech Therapy - Individual 46655: 12 Swallowing Dysfunction Treatment 54367: 13 Upon discontinuation of Acute Care Speech Therapy Services or patient discharge from the hospital this note represents the current Speech Therapy Discharge Summary * OWEN Benavides - 08/12/2024 3:21 PM EDT Placement Plan Expected Discharge Date: 08/14/2024 Referred Level of Care: IPR Barriers: Medical Readiness & Precertification Current Referrals and Status 1. Ashley Garcia-accepted IPR started precertification today. BULMARO Allen Geophysical Operator * Jazzy Aguiar - 08/12/2024 10:46 [...] Sitting Balance Static Sitting-Level of Assistance: (Contact gacarrid to mod A) Skilled Rationale: Verbal cues, [...] sinkside Mobility Assessment/Intervention: Supine to Sit Mobility [place] Level: Supine->Sit: moderate assist (50% patient effort) [...] positioning Transfer Assessment/Intervention: Sit to Stand Transfer [place] Level: Sit->Stand: maximum assist (25% patient effort) [...] maintaining upright posture Stand to Sit Transfer [place] Level: Stand->Sit: maximum assist (25% patient effort) Physical Assist: Stand->Sit: 2 person assist Assistive Device: Stand->Sit: gait belt, hand held assist Skilled Rationale: Verbal cues, Tactile cues, Hand placement, Positioning, Controlled descent for sitting Skilled Intervention/Details: Stand->Sit: Cues for positioning with recliner and using BUEs to help with appropriate positoining of hips in chair Bed-Chair Transfer [place] Level: Bed<->Chair: maximum assist (25% patient effort) Physical Assist: Bed<->Chair: 2 person assist Assistive Device: Bed<->Chair: gait belt Skilled Rationale: Verbal cues, Tactile cues, Hand placement, Positioning, Technique of activity Skilled Intervention/Details: Bed<->Chair: x1 from EOB to recliner on R. Pt needing increasedsupport for managing L side and sequencing steps for appropriate positioning with recliner Outcome Score(s): CURRENT [facility] Daily Activity Inpatient Short Form Putting on/Taking Off Lower Body Clothin - Total Assistance Bathin - A Lot of Assistance Toiletin - Total Assistance Putting on/Taking Off Upper Body Clothin - A Lot of Assistance Groomin - A Lot of Assistance Eatin - Total Assistance CURRENT [facility] Activity Raw Score: 9 CURRENT [facility] Activity Functional Limitation/Modifier: 79.59% Currently Impaired [...] speech and L hemiplegia. She presented to [facility] and was seen on Telestroke, NIHSS 12. [...] goal TF volume. Pt last assessed by ARCHEOLOGY FACULTY MEMBER 08/08 with recommendations for NPO. S/p PEG [...] chips. Will also increase free water flushes. ARCHEOLOGY FACULTY MEMBER to see pt tomorrow. Nutrition Focused Physical Exam: Nutrition Focused Physical Exam Completed?: completed Subcutaneous Fat Loss: Orbital Region (Orbital Fat Pads): WDL Cheek Region (Buccal Fat Pads): WDL Upper Arm Region (Triceps): WDL Thoracic and Lumbar Region (Ribs, Lower Back, Midaxillary Line): WDL Muscle Wasting: Orthodoxy Region (Temporalis Muscle): deferred (lac over eyebrow) [...] kg (172 lb) 06/26/24 78.9 kg (174 lb)-[facility] 05/31/24 79 kg (174 lb 2.6 oz)-[facility] 11/28/23 80.6 kg (177 lb 9.6 oz)-[facility] 09/29/23 84 kg (185 lb)-[facility] meds reviewed: Scheduled: Reviewed, includes insulin, [...] - 5.6 % Final WBC/Hgb/Hct/Plts: 14.32/14.3/45.1/241 (08/12 0343) Lab Results Component Value Date GLUCOSE [...] Needs: Weight Used: 61 kg (IBW) EEN: 6086-5415 kcal/day (25-30 kcal/kg) EPN: 73-92 g/day (1.2-1.5 g/kg) EFN: 1830 mL/day (30 mL/kg) or per primary team Malnutrition Statement: Does the patient meet criteria for malnutrition: No *Based on The Academy and ASPEN Indicators to Diagnose Malnutrition (AAIM) criteria (2012) Tianna Murray RD, LD, [facility] Pager #[phone] * Katie Ramos, PT - 08/12/2024 10:22 [...] standing. Mobility Assessment/Intervention: Supine to Sit Mobility [place] Level: Supine->Sit: moderate assist (50% patient effort) Physical Assist: Supine->Sit: 2 person assist Bed Features/Set-up: Supine->Sit: Head of bed elevated Skilled Rationale: Verbal cues, Tactile cues, Hand placement, Technique of activity Skilled Intervention/Details: Supine->Sit: verbal/tactile cues for instruction on transfer technique and mod A x 2 for LE and trunk management. Transfer Assessment/Intervention: Sit to Stand Transfer [place] Level: Sit->Stand: maximum assist (25% patient effort) Physical Assist: Sit->Stand: 2 person assist Assistive Device: Sit->Stand: gait belt Skilled Rationale: Verbal cues, Tactile cues, Hand placement, Technique of activity Skilled Intervention/Details: Sit->Stand: x2 trials with verbal/tactile cues for instruction on transfer technique, hand placement, and blocking left knee. Bed-Chair Transfer [place] Level: Bed<->Chair: maximum assist (25% patient effort) Physical Assist: Bed<->Chair: 2 person assist Assistive Device: Bed<->Chair: gait belt Skilled Rationale: Verbal cues, Tactile cues, Hand placement, Technique of activity Skilled Intervention/Details: Bed<->Chair: x1 trial from EOB to chair to the right. Verbal/tactile cues for instruction on transfer technqiue, blocking left knee. Outcome Score(s): CURRENT [facility] Basic Mobility Inpatient Short Form Turning over in bed: 2 - A Lot of Assistance Moving from lying on back to sittin - Total Assistance Moving to and from bed to chair: 1 - Total Assistance Sitting/standing from chair: 1 - Total Assistance Walk in hospital room: 1 - Total Assistance Climbing 3-5 steps with a railin - Total Assistance CURRENT [facility] Mobility Raw Score: 7 CURRENT [facility] Mobility Functional Limitation: 92.36% Impaired in [...] current Physical Therapy Discharge Summary. * Radha Traceynn, ELECTRONIC ORGAN TECHNICIAN-FOUNDER PRESIDENT AND CEO - 08/11/2024 7:15 AM EDT NEUROVASCULAR STROKE SERVICE Daily Progress Note IDENTIFYING INFORMATION Lindsay Acuna MR# [id number] 08/11/2024 HISTORY OF PRESENT ILLNESS Lindsay Acuna is a 78 y.o. female with PMH significant for CAD, HTN, HLD, T2DM, Afib (on Eliquis, although patient reports she has not been taking it) who presents with L hemiplegia, slurred speech. LKW 0915 on 08/02, later found down with slurred speech and L hemiplegia. She presented to [facility] and was seen on Telestroke, NIHSS 12. [...] 2b revascularization. INTERVAL HISTORY 08/05: Transfer [place] [place] 08/06: Failed MBS. Increased lopressor. Spouse [...] today 08/11 -Rate controlled on metoprolol Dysphagia: -ARCHEOLOGY FACULTY MEMBER following -NPO, DHT + TF -Failed MBS [...] Lindsay Acuna will likely be discharged to [facility] when medically ready Radha Gr APRN-FOUNDER PRESIDENT AND CEO 08/11/2024 10:17 AM VITAL SIGNS Temp: [97.2 [...] for specific therapeutic recommendations, please see the vacuum drier operator report of the speech pathologist. Examination performed [...] and neurological examinations as recorded by the HEARING AID ASSISTANT repeated and confirmed. I have personally reviewed [...] removal of tooth. Blood cx unremarkable. * PATRIZIA Hernandez - 08/10/2024 7:14 AM EDT NEUROVASCULAR STROKE SERVICE Daily Progress Note IDENTIFYING INFORMATION Lindsay Acuna MR# [id number] 08/10/2024 HISTORY OF PRESENT ILLNESS Lindsay Acuna is a 78 y.o. female with PMH significant for CAD, HTN, HLD, T2DM, Afib (on Eliquis, although patient reports she has not been taking it) who presents with L hemiplegia, slurred speech. LKW 0915 on 08/02, later found down with slurred speech and L hemiplegia. She presented to [facility] and was seen on Telestroke, NIHSS 12. [...] 2b revascularization. INTERVAL HISTORY 08/05: Transfer [place] [place] 08/06: Failed MBS. Increased lopressor. Spouse [...] as above -Rate controlled on metoprolol Dysphagia: -ARCHEOLOGY FACULTY MEMBER following -NPO, DHT + TF -Failed MBS [...] Lindsay Acuna will likely be discharged to [facility] when medically ready Radha Gr, ELECTRONIC ORGAN TECHNICIAN-FOUNDER PRESIDENT AND CEO 08/10/2024 7:14 AM VITAL SIGNS Temp: [97.4 [...] for specific therapeutic recommendations, please see the vacuum drier operator report of the speech pathologist. Examination performed [...] skin and external bumper. - If used mcfp, PEG should be changed every 3-6 months [...] Hepatology, and Nutrition Clinical Fellow PGY-4 Pager: [phone] For follow up questions regarding this patient 7am to 5pm, contact the IBD consults fellow or DAHLIA on QUnbouncea. [facility]--> Internal Medicine--> Gastroenterology, Hepatology, & Nutrition--> IBD Consult Service Fel Day OR IBD Consult Service DAHLIA Day For urgent/stat calls or new consults 5pm to 7am or all day on the weekend, please page the on-callGI fellow on QGenda. [facility]--> Internal Medicine--> Gastroenterology, Hepatology, & Nutrition--> 1st Call Fel Miriam OR STAT/NEW GI Cons Wknd Fel Day Cosigned by Niru Koch MD at 08/10/2024 2:11 PM EDT * OWEN Benavides - 08/09/2024 3:34 PM EDT Placement Plan Expected Discharge Date: Referred Level of Care: IPR Barriers: Medical Readiness and Precertification Current Referrals and Status 1. [facility] IPR-accepted IPR will start precertification on Monday after updated therapy notes are in. For Case Management assistance for the weekend, please contact for assistance as needed (8:00am-4:30pm) [facility]: [phone] Maria: [phone] Johan: [phone] Ross: [phone] For Social Work assistance for the weekend, please contact for assistance as needed (8:00am - 4:30pm): [facility]: [phone] Maria: [phone] Johan: [phone] Ross: [phone] * Radha Gr, ELECTRONIC ORGAN TECHNICIAN-FOUNDER PRESIDENT AND CEO - 08/09/2024 8:07 AM EDT NEUROVASCULAR STROKE SERVICE Daily Progress Note IDENTIFYING INFORMATION Lindsay Acuna MR# [id number] 08/09/2024 HISTORY OF PRESENT ILLNESS Lindsay Acuna is a 78 y.o. female with PMH significant for CAD, HTN, HLD, T2DM, Afib (on Eliquis, although patient reports she has not been taking it) who presents with L hemiplegia, slurred speech. LKW 0915 on 08/02, later found down with slurred speech and L hemiplegia. She presented to [facility] and was seen on Telestroke, NIHSS 12. [...] 2b revascularization. INTERVAL HISTORY 08/05: [place] 08/06: Failed MBS. Increased lopressor. [...] as above -Rate controlled on metoprolol Dysphagia: -ARCHEOLOGY FACULTY MEMBER following -NPO, DHT + TF -Failed MBS [...] Lindsay Acuna will likely be discharged to [facility] when medically ready Radha Gr APRN-FOUNDER PRESIDENT AND CEO 08/09/2024 8:07 AM VITAL SIGNS Temp: [97.3 [...] for specific therapeutic recommendations, please see the vacuum drier operator report of the speech pathologist. Examination performed [...] on the below outcome measures/assessment score(s) and ARCHEOLOGY FACULTY MEMBER clinicaljudgment, discharge destination recommendation is: Inpatient Rehab Facility Acute ARCHEOLOGY FACULTY MEMBER Outcomes Tracking Communicate basic wants and needs?: [...] pressions and introduction to effortful swallow exercise. ARCHEOLOGY FACULTY MEMBER provided education regarding recommendation of NPO given [...] constraints (transport arrived for pt's CT scan). ARCHEOLOGY FACULTY MEMBER will follow as able. Subjective information: Patient upright in chair, at bedside. Agreeable to ARCHEOLOGY FACULTY MEMBER session. Pain: General Pain Documentation (Adult, OB, [...] room air Flow (L/min): [3] 3 Acute ARCHEOLOGY FACULTY MEMBER Goals Plan of Care by RIKI Penaloza [...] phsyiology, risks of aspiration pneumonia). Educated regarding ARCHEOLOGY FACULTY MEMBER role in swallow rehab and future POC Plan for next session: 08/06: cog tx and dysphagia exercises ARCHEOLOGY FACULTY MEMBER Outcomes: FOIS: 1 Speech Language Pathologist: RIKI Penaloza Time In: 1310 Time Out: 1330 Total Visit Time: 20 minutes Total Treatment Time (skilled, billable minutes): 20 minutes Non-billable assistance during session: NA Assisted by during session: NA PPE used during patient interaction: gloves Patient location/status at end of session: chair Patient alarms at end of session: none altered Needs in reach. ARCHEOLOGY FACULTY MEMBER Evaluation and Treatment Time Swallowing Dysfunction Treatment 60484: 20 Upon discontinuation of Acute Care Speech [...] feedback Mobility Assessment/Intervention: Supine to Sit Mobility [place] Level: Supine->Sit: moderate assist (50% patient effort) Physical Assist: Supine->Sit: 2 person assist Bed Features/Set-up: Supine->Sit: Use of bed rail, Head of bed elevated Skilled Rationale: Sequencing, Verbal cues, Hand placement, Positioning Skilled Intervention/Details: Supine->Sit: increased time/cues Transfer Assessment/Intervention: Sit to Stand Transfer [place] Level: Sit->Stand: moderate assist (50% patient effort) Physical Assist: Sit->Stand: 2 person assist Assistive Device: Sit->Stand: gait belt, hand held assist Skilled Rationale: Positioning, Sequencing, Hand placement, Verbal cues Skilled Intervention/Details: Sit->Stand: Pt educated in sit to stand transfers x 2 attempts, one from EOB and one from chair Bed-Chair Transfer [place] Level: Bed<->Chair: maximum assist (25% patient effort) [...] with a railin - Total Assistance CURRENT [facility] Mobility Raw Score: 8 CURRENT [facility] Mobility Functional Limitation: 86.62% Impaired in [...] positioning Mobility Assessment/Intervention: Supine to Sit Mobility [place] Level: Supine->Sit: moderate assist (50% patient effort) [...] positioning Transfer Assessment/Intervention: Sit to Stand Transfer [place] Level: Sit->Stand: moderate assist (50% patient effort) Physical Assist: Sit->Stand: 2 person assist Assistive Device: Sit->Stand: gait belt, hand held assist Skilled Rationale: Verbal cues, Tactile cues, Hand placement, Positioning, Technique of activity Skilled Intervention/Details: Sit->Stand: x1 from EOB, x1 from recliner. Cues for technique and assuming an upright posture once standing Stand to Sit Transfer [place] Level: Stand->Sit: moderate assist (50% patient effort) Physical Assist: Stand->Sit: 2 person assist Assistive Device: Stand->Sit: gait belt, hand held assist Skilled Rationale: Verbal cues, Tactile cues, Hand placement, Positioning, Controlled descent for sitting Skilled Intervention/Details: Stand->Sit: Cues for positioning with recliner and using arms to help with controlled descent into chair Bed-Chair Transfer [place] Level: Bed<->Chair: maximum assist (25% patient effort) [...] appropriately position with chair. Outcome Score(s): CURRENT -[facility] Daily Activity Inpatient Short Form Putting on/Taking Off Lower Body Clothin - Total Assistance Bathin - A Lot of Assistance Toiletin - Total Assistance Putting on/Taking Off Upper Body Clothin - A Lot of Assistance Groomin - A Lot of Assistance Eatin - Total Assistance CURRENT -[facility] Activity Raw Score: 9 CURRENT AM-[facility] Activity Functional Limitation/Modifier: 79.59% Currently Impaired [...] RN aware Needs in reach. Time In: 942 Time [...] Progress Note IDENTIFYING INFORMATION Lindsay Acuna MR# [id number] 08/08/2024 HISTORY OF PRESENT ILLNESS Lindsay Acuna is a 78 y.o. female with PMH significant for CAD, HTN, HLD, T2DM, Afib (on Eliquis, although patient reports she has not been taking it) who presents with L hemiplegia, slurred speech. LKW 0915 on 08/02, later found down with slurred speech and L hemiplegia. She presented to [facility] and was seen on Telestroke, NIHSS 12. [...] 2b revascularization. INTERVAL HISTORY 08/05: [place] [place]06: Failed MBS. Increased lopressor. Spouse [...] as above -Rate controlled on metoprolol Dysphagia: -ARCHEOLOGY FACULTY MEMBER following -NPO, DHT + TF -Failed MBS [...] Lindsay Acuna will likely be discharged to [facility] when medically ready Bella Cardenas APRN-FOUNDER PRESIDENT AND CEO 08/08/2024 2:53 PM VITAL SIGNS Temp: [97.4 [...] for specific therapeutic recommendations, please see the vacuum drier operator report of the speech pathologist. Examination performed [...] bed availability Current Referrals and Status 1. [facility]- Reserved CCM notified SW student confirming after call with Patient's daughter that [facility] is facility of choice. Facility reserved. AVS/DAVE [...] patient and patient's spouse are agreeable to [facility] as facility of choice, and Gisela is agreeable to [facility] as well. Updated SW student. Simin Resendez RN, BSN Clinical Deputy Fire Marshal [facility] * Chela Hannon - 08/07/2024 2:08 PM EDT Placement Plan AUTOMOTIVE SALES SPECIALIST met with Patient and spouse at bedside to discuss facility choice. Spouse mentioned that [facility] was first choice, though AUTOMOTIVE SALES SPECIALIST provided update that [facility] could not accept after reviewing. AUTOMOTIVE SALES SPECIALIST reviewed other IPR options with Spouse, who reports that [facility] would be facility of choice. Spouse discussed with daughter Gisela via phone, who is in agreement but requestsa return call. AUTOMOTIVE SALES SPECIALIST notified CCM. Chela Snyder, Social Work Student Available by Secure Chat Cosigned by OWEN Keller at 08/07/2024 2:11 PM EDT * Bella Cardenas APRN-GARRETT - 08/07/2024 6:54 AM EDT NEUROVASCULAR STROKE SERVICE Daily Progress Note IDENTIFYING INFORMATION Lindsay Acuna MR# [id number] 08/07/2024 HISTORY OF PRESENT ILLNESS Lindsay Acuna is a 78 y.o. female with PMH significant for CAD, HTN, HLD, T2DM, Afib (on Eliquis, although patient reports she has not been taking it) who presents with L hemiplegia, slurred speech. LKW 0915 on 08/02, later found down with slurred speech and L hemiplegia. She presented to [facility] and was seen on Telestroke, NIHSS 12. [...] 2b revascularization. INTERVAL HISTORY 08/05: Transfer [place] [place] 08/06: Failed MBS. Increased lopressor. Spouse [...] as above -Rate controlled on metoprolol Dysphagia: -ARCHEOLOGY FACULTY MEMBER following -NPO, DHT + TF -Failed MBS [...] Lindsay Acuna will likely be discharged to [facility] when medically ready Bella Cardenas, ELECTRONIC ORGAN TECHNICIAN-FOUNDER PRESIDENT AND CEO 08/07/2024 3:06 PM VITAL SIGNS Temp: [97.5 [...] for specific therapeutic recommendations, please see the vacuum drier operator report of the speech pathologist. Examination performed [...] authorization, transportation Current Referrals and Status 1. [facility]: Available 2. [facility]: Available 3. [facility]: Available (pending PEG or diet and their MD requested aspirin started before discharge) 4. [facility]: Available 5. [facility]: Unavailable, out of network 6. [facility]: Unavailable, Incorrect Level of Care 7. [facility] IPR: sent Met with patient and patient's spouse, Ike, at bedside to provide choice list. Ike called patient's daughter, Gisela Acuna, to discuss as well. Gisela requested information on private pay at [facility], messaged [facility] liaison and then provided information to Gisela. Gisela requested CM sendreferral to [facility] IPR. Plan for family to review choice list tonight, CM/SW team will update patient and family regarding [facility] IPR response tomorrow morning. This CM's contact information provided to Ike Acuna and Gisela Armand for any further questions. Simin Resendez RN, BSN Clinical Deputy Fire Marshal [facility] * Florinda Velasquez, PT - [...] minutes Mobility Assessment/Intervention: Supine to Sit Mobility [place] Level: Supine->Sit: moderate assist (50% patient effort) Bed Features/Set-up: Supine->Sit: Head of bed elevated, Use of bed rail Skilled Rationale: Positioning, Sequencing Skilled Intervention/Details: Supine->Sit: step by step cues for sequencingg Transfer Assessment/Intervention: Sit to Stand Transfer [place] Level: Sit->Stand: moderate assist (50% patient effort) [...] left UE during transitional movements Bed-Chair Transfer [place] Level: Bed<->Chair: moderate assist (50% patient effort) Physical Assist: Bed<->Chair: 2 person assist Assistive Device: Bed<->Chair: gait belt, hand held assist Skilled Rationale: Positioning, Hand placement, Verbal cues, Sequencing Skilled Intervention/Details: Bed<->Chair: Pt educated in bed to C commode transfer x 2-3 steps with cues for LE sequencing, left LE weakness requiring intermittent blocking Gait/Functional Mobility Assessment/Intervention: Gait Assessment [place] Level: Gait: (mod/max) Physical Assist: Gait: 2 [...] prevent buckling. Stairs Assessment/Intervention: Outcome Score(s): CURRENT [facility] Basic Mobility Inpatient Short Form Turning [...] with a railin - Total Assistance CURRENT [facility] Mobility Raw Score: 9 CURRENT [facility] Mobility Functional Limitation: 81.38% Impaired in [...] Physical Therapy Discharge Summary. * Nimesh Balderrama, [facility] - 08/06/2024 1:42 PM EDT Department of Pharmacy Admission Medication Reconciliation Note Patient: Lnidsay Acuna Room/Bed: 1043/A I have reviewed the patient's home medication list with the following sources Dispense Report. The home medication list status is: complete. All changes to the home medication list have been updated in [facility]. Updated CLEARING INSPECTOR Med List: Prior to Admission Medications Prescriptions [...] questions. Name: Nimesh Balderrama RPH Phone #: [phone] Date/Time: 08/06/2024 1:42 PM Time Spent: 10 minutes * Rahcell Blake OT - 08/06/2024 10:05 AM EDT [...] noted Mobility Assessment/Intervention: Supine to Sit Mobility [place] Level: Supine->Sit: moderate assist (50% patient effort) [...] completion. Transfer Assessment/Intervention: Sit to Stand Transfer [place] Level: Sit->Stand: (x 1 trial from EOB [...] and kyphotic posture. Stand to Sit Transfer [place] Level: Stand->Sit: moderate assist (50% patient effort) Assistive Device: Stand->Sit: gait belt (Arm and arm assist.) Skilled Rationale: Cues for increased safety, Initiation and execution of task, Technique of activity, Controlled descent for sitting, Ischial assist, Arm in arm, Tactile cues, Verbal cues, Hand placement, Sequencing, Positioning Bed-Chair Transfer [place] Level: Bed<->Chair: moderate assist (50% patient effort) [...] with left LE). Functional Mobility: Functional Mobility [place] Level: Functional Mobility/Gait: (Moderate-max assistance) Physical Assist: [...] overall decreased insight/awareness intodeficits. Outcome Score(s): CURRENT [facility] Daily Activity Inpatient Short Form Putting on/Taking Off Lower Body Clothin - Total Assistance Bathin - A Lot of Assistance Toiletin - Total Assistance Putting on/Taking Off Upper Body Clothin - A Lot of Assistance Groomin - A Lot of Assistance Eatin - Total Assistance ([place].) CURRENT [facility] Activity Raw Score: 9 CURRENT [facility] Activity Functional Limitation/Modifier: 79.59% Currently Impaired [...] Occupational Therapy Discharge Summary. * Taran Traore APRN-FOUNDER PRESIDENT AND CEO - 08/06/2024 7:49 AM EDT NEUROVASCULAR STROKE SERVICE Daily Progress Note IDENTIFYING INFORMATION Lindsay Acuna MR# [id number] 08/06/2024 HISTORY OF PRESENT ILLNESS Lindsay Acuna is a 78 y.o. female with PMH significant for CAD, HTN, HLD, T2DM, Afib (on Eliquis, although patient reports she has not been taking it) who presents with L hemiplegia, slurred speech. LKW 0915 on 08/02, later found down with slurred speech and L hemiplegia. She presented to [facility] and was seen on Telestroke, NIHSS 12. [...] 2b revascularization. INTERVAL HISTORY 08/05: Transfer [place] [place]06: Failed MBS. Increased lopressor. Spouse [...] as above -Rate controlled on metoprolol Dysphagia: -ARCHEOLOGY FACULTY MEMBER following -NPO, DHT + TF -Failed MBS [...] Lindsay Acuna will likely be discharged to [facility] when medically ready Taran Traore, ELECTRONIC ORGAN TECHNICIAN-FOUNDER PRESIDENT AND CEO 08/06/2024 1:43 PM VITAL SIGNS Temp: [96.5 [...] for specific therapeutic recommendations, please see the vacuum drier operator report of the speech pathologist. Examination performed [...] Progress Note IDENTIFYING INFORMATION Lindsay Acuna MR# [id number] 08/05/2024 HISTORY OF PRESENT ILLNESS Lindsay Acuna is a 78 y.o. female with PMH significant for CAD, HTN, HLD, T2DM, Afib (on Eliquis, although patient reports she has not been taking it) who presents with L hemiplegia, slurred speech. LKW 0915 on 08/02, later found down with slurred speech and L hemiplegia. She presented to [facility] and was seen on Telestroke, NIHSS 12. [...] 2b revascularization. INTERVAL HISTORY 08/05: Transfer to [facility] tomorrow PHYSICAL EXAM Gen: awake, alert, [...] as above -Rate controlled on metoprolol Dysphagia: -ARCHEOLOGY FACULTY MEMBER following -NPO, DHT + TF -MBS tomorrow HLD, POA: -Atorvastatin 40 mg daily CAD, POA: -Hold ASA for 7 days due to ICH T2DM, POA: -SSI regular + accuchecks CKD Stage 3A, POA: Baseline Cr 1.3 -Avoid nephrotoxins, monitor Hypothyroidism, POA: -Continue home levothyroxine 75 mcg daily Disposition: Lindsay Acuna will likely be discharged to [facility] when medically ready Taran Traore APRN-FOUNDER PRESIDENT AND CEO 08/05/2024 2:19 PM VITAL SIGNS Temp: [97.8 [...] Per NG tube Q4H * Queta Gardner, ARCHEOLOGY FACULTY MEMBER - 08/05/2024 11:49 AM EDT Acute Care [...] on the below outcome measures/assessment score(s), and ARCHEOLOGY FACULTY MEMBER clinical judgment, discharge destination recommendation is: Pending [...] Impaired cognitive skills limiting saf ety/insight Acute ARCHEOLOGY FACULTY MEMBER Outcomes Tracking Communicate basic wants and needs?: [...] oropharyngeal swallow function to most appropriately guide ARCHEOLOGY FACULTY MEMBER plan of care. Of note, patient is [...] Currentdeficits impact her safety and independence. Ongoing ARCHEOLOGY FACULTY MEMBER services are warranted. Subjective information: Awake, alert, [...] O2 Device: room air (08/05 0830) Acute ARCHEOLOGY FACULTY MEMBER Goals Plan of Care by Queta Gardner, ARCHEOLOGY FACULTY MEMBER at 08/05/2024 11:49 AM Version 1 of [...] oropharyngeal swallow function to most appropriately guide ARCHEOLOGY FACULTY MEMBER plan of care Outcome: Ongoing Problem: ARCHEOLOGY FACULTY MEMBER - Cognition Goal: Orientation Log - Patient [...] better assess deficits and most appropriately guide ARCHEOLOGY FACULTY MEMBER plan of care Outcome: Met Tx: Noted [...] Plan for next session: 08/05: Good candidate[place] [facility] ARCHEOLOGY FACULTY MEMBER Outcomes: ARCHEOLOGY FACULTY MEMBER Outcomes / Standardized Measures Score The Orientation [...] wrist restraints, RN aware Needs in reach. ARCHEOLOGY FACULTY MEMBER Evaluation and Treatment Time Speech Therapy - Individual 31437: 8 Swallowing Dysfunction Treatment 79746: 9 Upon discontinuation of Acute Care Speech Therapy Services or patient discharge from the hospital this note represents the current Speech Therapy Discharge Summary * Chela Hannon - 08/05/2024 10:37 AM EDT Placement Plan Expected Discharge Date: TBD Referred Level of Care: IPR Barriers: medical stability, bed availability Current Referrals and Status 1. [facility]- sent; denied (Patient is OON) 2. [facility]- sent 3. [facility]- sent 4. [facility]- sent 5. [facility]- sent 6. [facility] AUTOMOTIVE SALES SPECIALIST met with Patient and Spouse at bedside to discuss discharge planning. Patient and spouse were agreeable to SW visit. AUTOMOTIVE SALES SPECIALIST discussed therapy recommendations with Spouse for Patient to go to [facility] at discharge. Spouse is agreeable to a referral being sent to [facility]. Referral sent. Spouse requested to speak to about assessing Patient for dementia. AUTOMOTIVE SALES SPECIALIST and bedside RN encouragedSpouse to discuss with Patient's outpatient provider. Chela Snyder, Social Work Student Available by Secure Chat Cosigned by OWEN Keller at 08/05/2024 11:22 AM EDT * Savana Leung, NITHYA - 08/05/2024 10:10 AM EDT NUTRITION ASSESSMENT Nutrition Recommendations and Plan of Care: 1. Diet: NPO. Advancement per team/ARCHEOLOGY FACULTY MEMBER recommendation 2. Ordered TF: Glucerna 1.5 @ [...] time. Per team, pt failed bedside swallow. ARCHEOLOGY FACULTY MEMBER consulted for swallow eval. Past History No [...] kg (172 lb) 06/26/24 78.9 kg (174 lb)-[facility] 05/31/24 79 kg (174 lb 2.6 oz)-[facility] 11/28/23 80.6 kg (177 lb 9.6 oz)-[facility] 09/29/23 84 kg (185 lb)-[facility] Pt without significant weight change CLEARING INSPECTOR. Tmax: 97.8*F BP: (!) 173/94 Pulse (Heart [...] proximal second portion of the duodenum. BM: CLEARING INSPECTOR Urine: 725mL Skin: Raghu Score: 13 Active Wounds: Wound Sheath Site 08/02/24 1500 Right Radial (3) Wound Abrasion 08/02/24 2109 Left;Upper Face (3) Edema- None Estimated Nutrition Needs: Based on IBW (61.4kg) Estimated Kcals Needs: 5826-9908 kcals (25-30kcals/kg) Estimated Pro Needs: 74-92g Pro (1.2-1.5g/kg) Estimated Fluid Needs: Per MD Nutrition Focused Physical Exam Completed?: completed Subcutaneous Fat Loss: Orbital Region (Orbital Fat Pads): WDL Cheek Region (Buccal Fat Pads): WDL Upper Arm Region (Triceps): WDL Thoracic and Lumbar Region (Ribs, Lower Back, Midaxillary Line): WDL Muscle Wasting: Orthodoxy Region (Temporalis Muscle): deferred (lac over eyebrow) [...] (AAIM) criteria (2012) ELVIRA Ho, RD, LD, [facility] Pager: [phone] * Rashad Rg MD - 08/05/2024 9:42 AM EDT 78F admitted to the [facility] with Rt M1 occlusion s/p TICI2b revascularization. [...] Total critical care time 31min. * Shanna Russ APRN-FOUNDER PRESIDENT AND CEO - 08/05/2024 7:20 AM EDT NEUROCRITICAL CARE [...] Visual richards intact to confrontation. PERRL. 3mm cardiovascular surgeon III, IV and : EOMI. No nystagmus. [...] aggressive pulm edema, OOB as toleratd - [id number], encourage pulmonary toileting Cards: Essential HTN HLD [...] TUBE FEEDING with meds (per DHT) - [place] Swallow Screening Result: failed=NPO Bowel regimen: - Last Bowel Movement: (prior to admission) - Senna 17.2 mg Q12H, miralax BID, suppository PRN Stress ulcer prophylaxis: - none Dysphagia - DHT placed - ARCHEOLOGY FACULTY MEMBER following; NPO continue following, on TF - [...] Discussed with NCCU Attending, Dr. Arcenio Russ, ELECTRONIC ORGAN TECHNICIAN-FOUNDER PRESIDENT AND CEO 08/05/24 7:24 AM Check the treatment team to find the assigned neurocritical care provider (resident, fellow, HEARING AID ASSISTANT, orPA) or page/call the corresponding number below NCC1 (Beds [phone]): [place] # [phone], pager #[phone] NCC2 (Beds [phone], 12 [place], and overflow): [place] #: [phone], pager #[phone] * Florinda Velasquez, PT - 08/04/2024 1:36 [...] noted Mobility Assessment: Supine to Sit Mobility [place] Level: Supine->Sit: moderate assist (50% patient effort) [...] EOB Transfer Assessment: Sit to Stand Transfer [place] Level: Sit->Stand: moderate assist (50% patient effort) Physical Assist: Sit->Stand: 2 person assist Assistive Device: Sit->Stand: gait belt, hand held assist Skilled Rationale: Positioning, Sequencing, Hand placement, Verbal cues Skilled Intervention/Details: Sit->Stand: x 1 from EOB Bed-Chair Transfer [place] Level: Bed<->Chair: moderate assist (50% patient effort) Physical Assist: Bed<->Chair: 2 person assist Assistive Device: Bed<->Chair: gait belt, hand held assist Skilled Rationale: Positioning, Sequencing, Hand placement, Verbal cues Skilled Intervention/Details: Bed<->Chair: x 2-3 steps from bed to chair Gait/Functional Mobility: Stairs: Outcome Score(s): CURRENT [facility] Basic Mobility Inpatient Short Form Turning [...] with a railin - Total Assistance CURRENT [facility] Mobility Raw Score: 10 CURRENT [facility] Mobility Functional Limitation: 76.75% Impaired in [...] Edema: Mobility Assessment: Supine to Sit Mobility [place] Level: Supine->Sit: moderate assist (50% patient effort) Physical Assist: Supine->Sit: 2 person assist Bed Features/Set-up: Supine->Sit: Head of bed elevated Skilled Rationale: Positioning, Hand placement, Verbal cues, Technique of activity Transfer Assessment: Sit to Stand Transfer [place] Level: Sit->Stand: moderate assist (50% patient effort) Physical Assist: Sit->Stand: 2 person assist Assistive Device: Sit->Stand: gait belt, hand held assist Skilled Rationale: Positioning, Hand placement, Verbal cues, Technique of activity Stand to Sit Transfer [place] Level: Stand->Sit: moderate assist (50% patient effort) Physical Assist: Stand->Sit: 2 person assist Assistive Device: Stand->Sit: hand held assist Skilled Rationale: Positioning, Hand placement, Verbal cues, Arm in arm, Controlled descent for sitting Bed-Chair Transfer [place] Level: Bed<->Chair: moderate assist (50% patient effort) Physical Assist: Bed<->Chair: 2 person assist Assistive Device: Bed<->Chair: gait belt, hand held assist Skilled Rationale: Arm in arm, Patellar block, Technique of activity Skilled Intervention/Details: Bed<->Chair: LLE weakness/blocking of patella with transfer, pivot to right Functional Mobility: Outcome Score(s): CURRENT [facility] Daily Activity Inpatient Short Form Putting on/Taking Off Lower Body Clothin - A Lot of Assistance Bathin - A Lot of Assistance Toiletin - Total Assistance Putting on/Taking Off Upper Body Clothin - A Lot of Assistance Groomin - A Little Assistance Eatin - Total Assistance CURRENT AM-[facility] Activity Raw Score: 11 CURRENT AM-PAC [...] OT Evaluation and Treatment Time OT Evaluation ([facility]) Time Entry: 18 Evaluating Therapist: Dona Shrap OT Additional Details: OT Co-Eval/Treatment Information Co-evaluation/co-treatment [...] assessment and plan as documented by the HEARING AID ASSISTANT with my changes/additions added. Patient is a [...] ICH x 7 days - Statin - PT/OT/ARCHEOLOGY FACULTY MEMBER evaluation Pulmonary: No acute issues, appears to [...] and other supportive care as per the HEARING AID ASSISTANT note from the same day This patient [...] MD Neurocritical Care Attending * Balbir Mccoy, ELECTRONIC ORGAN TECHNICIAN-FOUNDER PRESIDENT AND CEO - 08/04/2024 7:44 AM EDT NEUROCRITICAL CARE [...] slurred speech. She presented to [facility] on 3/21, seen on tele stroke with NIH of [...] Visual richards intact to confrontation. PERRL. 3mm cardiovascular surgeon III, IV and : EOMI. No nystagmus. [...] as above - VTE prophylaxis: subcutaneous heparin 3/23 - Anticoagulation plan: hold home Eliquis, restarting [...] (08/04 0700) O2 Device: room air (08/04 0700) - Goal SpO2 >92%; wean FiO2 as tolerated - [id number], encourage pulmonary toileting Cards: Essential HTN HLD [...] TUBE FEEDING with meds (per DHT) - [place] Swallow Screening Result: failed=NPO Bowel regimen: - Last Bowel Movement: (prior to admission) - Senna 17.2 mg Q12H, miralax at bedtime Stress ulcer prophylaxis: - none Dysphagia - DHT placed - ARCHEOLOGY FACULTY MEMBER following - Tube feed: Vital AF with [...] 08/07 Heme/Onc: No Current Issues Recent Labs 08/02/24184208/03/24108/04/242 WBC 8.16 8.43 11.41* RBC 4.76 4.63 [...] place Discussed with NCCU Attending, Dr. Jackie Mccoy APRN-GARRETT 08/04/24 7:44 AM Check the treatment team to find the assigned neurocritical care provider (resident, fellow, HEARING AID ASSISTANT, orPA) or page/call the corresponding number below NCC1 (Beds [phone]): [place] # [phone], pager #[phone] NCC2 (Beds 2947-8452, [address] [place], and overflow): [place] #: [phone], pager #[phone] * Rafael Garcia MD - 08/03/2024 2:16 PM EDT NEUROVASCULAR Consult Daily Progress Note IDENTIFYING INFORMATION Lindsay Acuna MR# [id number] 08/03/2024 HISTORY OF PRESENT ILLNESS Lindsay Acuna is a 78 y.o. female with PMH significant for CAD, HTN, HLD, T2DM, Afib (on Eliquis, although patient reports she has not been taking it) who presents with L hemiplegia, slurred speech. She was last seen normal by her at 0915, later found down with slurred speech and L hemiplegia. She presented to [facility] and was seen on Telestroke, NIHSS 12. [...] speech and L hemiplegia. She presented to [facility] and was seen on Telestroke, NIHSS 12. [...] - 08/03/2024 12:09 PM EDT Acute Care ARCHEOLOGY FACULTY MEMBER Speech/Language/Cognitive Evaluation Best mode of Communication: spoken language (regular speech) Discharge Recommendations: Based on the below outcome measures/assessment score(s) and ARCHEOLOGY FACULTY MEMBER clinicaljudgment, discharge destination recommendation is: (Skilled speech therapy services at next level of care) Barriers to discharge home: Cognitive impairments that impact safety and independence Supporting factors for discharge setting: Impaired swallow function limiting nutritional status andsafety with oral intake Acute ARCHEOLOGY FACULTY MEMBER Outcomes Tracking Communicate basic wants and needs?: [...] speech and L hemiplegia. She presented to [facility] and was seen on Telestroke,NIHSS 12. CTH [...] 0 Asthenia (A): 0 Strain (S): 0 ARCHEOLOGY FACULTY MEMBER Outcomes / Standardized Measures Score The Orientation [...] unable to respond. Total Score: 12 Acute ARCHEOLOGY FACULTY MEMBER Goals Plan of Care by RIKI Hayes at 08/03/2024 11:25 AM Version 1 of 1 Problem: Dysphagia Goal: Ongoing Assessment - Patient will participate in ongoing assessment by accepting various PO consistency trials with appropriate participation/oral acceptance and no significant respiratory complications to determine readiness for diet advancement Outcome: Ongoing Problem: ARCHEOLOGY FACULTY MEMBER - Cognition Goal: Orientation Log - Patient [...] better assess deficits and most appropriately guide ARCHEOLOGY FACULTY MEMBER plan of care Outcome: Ongoing Speech Language [...] of session: bed alarm Needs in reach. ARCHEOLOGY FACULTY MEMBER Evaluation and Treatment Time Speech Eval - Sound Production W/Lang Comp and Exp 42775: 11 Swallowing Eval 21190: 10 Upon discontinuation of Acute Care Speech [...] on the below outcome measures/assessment score(s) and ARCHEOLOGY FACULTY MEMBER clinicaljudgment, discharge destination recommendation is: Deferred to PT/OT recomendations related to mobility Current therapy frequency recommendation in acute care: Swallow Therapy Frequency: 5 times a week Acute ARCHEOLOGY FACULTY MEMBER Outcomes Tracking Communicate basic wants and needs?: [...] speech and L hemiplegia. She presented to [facility] and was seen on Telestroke,NIHSS 12. 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 Prior ARCHEOLOGY FACULTY MEMBER history: No prior speech history per chart review Current Method of Nutrition: Route of Nutrition: No alternative means Respiratory Status: O2 Sat (%): 94 % (08/03 1099) O2 Device: room air (08/03 1099) Line/Tubes/Drains: Lines/Tubes/Drains (Rehab Status): Telemetry Patient Vitals [...] and Liquids Trialed Modality Amount Ice Teaspoon, ARCHEOLOGY FACULTY MEMBER-fed 3x Thin Teaspoon 3x Oral Phase Function [...] Patient presents with presumed pharyngeal phase impairments. Aurora Swallow Screen: (administered by: RN) Aurora Swallow Screening Screening Exclusion Criteria: none, continue with Aurora Swallow Screening Cognitive Screen: Orientation: able to [...] Water Swallow Challenge : coughing/throat clearing-overt signs/symptoms Aurora Swallow Screening Result: failed=NPO Voice and Swallow [...] Ok for ice chips with RN supervision. ARCHEOLOGY FACULTY MEMBER will continue to follow for ongoing dysphagia management. Patient Education/Instruction Learners: Patient Education provided: Dysphagia recommendation risk: benefit analysis, Role of this discipline Teaching method: Verbal Education/Instruction Learner response: Needs review Learning preferences: Auditory Learning considerations: Cognition Plan for next session: 08/03: Good Prognosis, ongoing dysphagia management to determine readiness for diet advancement vs instrumental. Acute ARCHEOLOGY FACULTY MEMBER Goals Plan of Care by RIKI Hayes at 08/03/2024 11:25 AM Version 1 of 1 Problem: Dysphagia Goal: Ongoing Assessment - Patient will participate in ongoing assessment by accepting various PO consistency trials with appropriate participation/oral acceptance and no significant respiratory complications to determine readiness for diet advancement Outcome: Ongoing Problem: ARCHEOLOGY FACULTY MEMBER - Cognition Goal: Orientation Log - Patient [...] better assess deficits and most appropriately guide ARCHEOLOGY FACULTY MEMBER plan of care Outcome: Ongoing Speech Language Pathologist: RIKI Hayes, BCS-S Board Certified Specialist in Swallowing and Swallowing Disorders Available via [place] Chat Time In: 1130 Time Out: 1151 Total Visit Time: 21 minutes Total Treatment Time (skilled, billable minutes): 21 minutes Non-billable assistance during session: none Assisted by during session: Patient's PPE used during patient interaction: gloves Patient location/status at end of session: bed with head of bed elevated Patient alarms at end of session: bed alarm Needs in reach. ARCHEOLOGY FACULTY MEMBER Evaluation and Treatment Time Speech Eval - Sound Production W/Lang Comp and Exp 71746: 11 Swallowing Eval 75498: 10 Upon discontinuation of Acute Care Speech Therapy Services or patient discharge from the hospital this note represents the current Speech Therapy Discharge Summary * Richard Mejia MD - 08/03/2024 10:30 AM EDT I have independently seen and examined the patient on 08/03/24. I agree with the history, examination, assessment and plan as documented by the HEARING AID ASSISTANT with my changes/additions added. Patient is a [...] the setting of ICH - Statin - PT/OT/ARCHEOLOGY FACULTY MEMBER evaluation Pulmonary: No acute issues, appears to [...] and other supportive care as per the HEARING AID ASSISTANT note from the same day This patient [...] care services to the patient today independent [facility], teaching and other care providers. Management of [...] with assistance from spouse Care Management Plan AUTOMOTIVE SALES SPECIALIST met with Patient and Spouse at bedside to complete Initial Assessment. They were agreeable to SW visit. Patient was lethargic though able to answer some short questions. Patient consented to Spouse assisting with assessment. Spouse/Patient report that Patient has never completed a HCPOA. They expressed interest, and AUTOMOTIVE SALES SPECIALIST will follow to complete document when Patient is more alert and oriented. Spouse reports himself and Patient live in a ranch-style home with strong supports from their community, including 2 neighbors that have assisted at this time. He noted that himself and Patient recently returned from a visit to [facility] for their 50th wedding anniversary. Spouse reports that their 2 children will be visiting soon. AUTOMOTIVE SALES SPECIALIST explained SW role and offered resources. Spouse [...] Name and Contact information: Ike Acuna P: [phone] Adult Child(jj), List All Adult Children: Yes Name and Contact information: Donnell Acuna P: [phone]; Nathen Acuna P: [phone] Would you like to add additional adult [...] for Advance Care Planning? : Patient Agreeable (AUTOMOTIVE SALES SPECIALIST to follow for HCPOA completion when Patient is more alert and oriented) Medication Management Does the patient have prescription insurance coverage? : Yes Is the patient on Anticoagulation? : Yes (Per chart review, Patient is on anticoagulation but has not been taking it (does not recall the last time she took a dose)) Provider or Clinic that manages Anticoagulation?: (unspecified at this time) [facility] [address] [place] [id number] [address] [facility] [address] [facility] [address] Living Environment and Support System Is the patient from a facility or custodial?: No Living Environment: House ("1 bedroom ranch") Patient Caregiving Responsibilities: Self Patient-identified caregiver/support network: Family, Friends, Neighbors, Pentecostal Who does the patient identify as a [...] themselves at home? : Unable to assess Aboriginal Community Council Member Does the patient or practice representative express financial concerns? : No Chela Snyder Social Work Student Available by Secure Chat Cosigned by OWEN Keller at 08/03/2024 11:20 AM EDT * Balbir Mccoy, ELECTRONIC ORGAN TECHNICIAN-FOUNDER PRESIDENT AND CEO - 08/03/2024 7:40 AM EDT NEUROCRITICAL CARE [...] slurred speech. She presented to [facility] on [facility], seen on tele stroke with NIH of [...] Visual richards intact to confrontation. PERRL. 3mm cardiovascular surgeon III, IV and : EOMI. No nystagmus. [...] SpO2 >92%; wean FiO2 as tolerated - [id number], encourage pulmonary toileting Cards: Essential HTN HLD [...] - Bowel regimen: - Last Bowel Movement: (CLEARING INSPECTOR) - Senna, miralax Stress ulcer prophylaxis: - none Dysphagia - DHT placed - ARCHEOLOGY FACULTY MEMBER following - Tube feed: Vital AF with [...] Discussed with NCCU Attending, Dr. Jackie Mccoy, ELECTRONIC ORGAN TECHNICIAN-FOUNDER PRESIDENT AND CEO 08/03/24 7:40 AM Check the treatment team to find the assigned neurocritical care provider (resident, fellow, HEARING AID ASSISTANT, orPA) or page/call the corresponding number below NCC1 (Beds 4820-1687): [place] # [phone], pager #[phone] NCC2 (Beds 6662-1242, 12 Nando, and overflow): [place] #: [phone], pager #[phone] * Nando Caceres MD - 08/03/2024 6:00 [...] nccu Neurosurgery signing off Please page NS2 ([phone]) with questions Complexity. Hypocalcemia - Continue to monitor and replete. Any conditions listed below are present on admission unless otherwise specified. . Cosigned by Prema Ramos MD at 08/03/2024 6:37 PM EDT * Andreas Ga RPH - 08/02/2024 10:57 PM EDT Department of Pharmacy Renal Documentation Note Patient: Lindsay Acuna Room/Bed: [facility] Assessment and Plan: The patient's most recent [...] any questions, Name: Andreas Ga RPH Phone: [phone] Date/Time: 08/02/2024 10:57 PM * Richard Mejia MD - 08/02/2024 6:01 PM EDT I have independently seen and examined the patient on 08/02/24. I agree with the history, examination, assessment and plan as documented by the HEARING AID ASSISTANT with my changes/additions added. Patient is a [...] to determine stroke burden - Statin - PT/OT/ARCHEOLOGY FACULTY MEMBER evaluation Pulmonary: No acute issues, appears to [...] stage 3a - Maintain euvolemia GI/Nutrition: - ARCHEOLOGY FACULTY MEMBER evaluation - Bowel regimen to prevent constipation [...] and other supportive care as per the HEARING AID ASSISTANT note from the same day This patient [...] MD Neurocritical Care Attending [facility]U [facility] Consult note* Niru Koch MD - [...] IBD Consult WebExchange --> IM Consult Serv [facility] --> [facility] IBD consult service Fellow [...] today. Consent obtained by at bedside. - ARCHEOLOGY FACULTY MEMBER eval: none - RD eval: none PAST [...] dependence ASSESSMENT/RECOMMENDATIONS: - primary team feels that mcfp enteric nutrition is warranted in s/o CVA. Patient is appropriate for endoscopic PEG placement. Consent obtained from at bedside. - we will tentatively plan for EGD for PEG placement 08/09 as add on case. See pre procedure recommendations below. For PEG: - Ancef ordered (1 gm if patient is <80 kg; 2 gm if patient is >80 kg) as "rehabilitation services director to the procedure"). - Please make NPO [...] Hepatology, and Nutrition Clinical Fellow PGY-4 Pager: [phone] For urgent/stat calls 5pm to 7am or all day on the weekend, please page the on- call GI fellow on WebTirendo. IM Consult Serv [facility] --> [facility] STAT/NEW GI consults For follow up questions regarding this patient, contact the IBD consults fellow or DAHLIA on [employer]. IM Consult Serv [facility] --> [facility] [...] and medical decisions as outlined. Need for mcfp non-oral enteric nutrition per primary team. We will facilitate this with planned PEG tube placement. Before placement, non-GI management of TF should be established to avoid delays. David Woods M.D. 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 Prema Ramos M.D. Retail Special Event Associate Department of Neurosurgery [facility] * Taran Traore, ELECTRONIC ORGAN TECHNICIAN-FOUNDER PRESIDENT AND CEO - 08/02/2024 2:44 PM EDT Neurovascular Evaluation [...] speech and L hemiplegia. She presented to [facility] and was seen on Telestroke, NIHSS 12. [...] Well: Date: 08/02/24 Last Known Well: Time: 0915 Source of information: family Review of Systems [...] solution Intravenous Continuous PRN Bebo Barboza APRN- TEAROOM HOST/HOSTESS New Bag at 08/02/24 1507 Scheduled Meds: [...] protrudes midline Motor: L hemiplegia Reflexes: Coordination: Aowjac-si-ygns intact on the R, unable to test on the L Sensation: Diminished on the L with tactile extinction on L Gait: Deferred Laboratory Results Diagnostics/Procedures: Labs-CBC Labs-Chem 7([facility]) Labs-Coags Additional Labs No results found for: [...] Continuous telemetry -PT, OT, Speech and social security benefits interviewer consults Other problems: Complexity. Any conditions listed [...] speech and L hemiplegia. She presented to [facility] and was seen on Telestroke, NIHSS 12. [...] Delbert Kasper MD documented in this encounterOSU [facility] Procedure note* Tanja Hunter, RIKI - [...] the below outcome measures/assessment score(s), MBS, and ARCHEOLOGY FACULTY MEMBER clinical judgment, discharge destination recommendation is: IP Rehab Facility. Patient demonstrates good candidacy for discharge to: IRF. Additional supporting factors include: Impaired swallow functionlimiting nutritional status and safety with oral intake. Acute ARCHEOLOGY FACULTY MEMBER Outcomes Tracking Communicate basic wants and needs?: yes Demo insight/appreciation of deficits?: unable to determine Appreciate deficits - Details: suspect emerging Complete basic problem solving?: unable to determine Current therapy frequency recommendation in acute care: Speech/Lang/Cog Therapy Frequency: 3 times a week Swallow Therapy Frequency: 5 times a week Date of Procedure: 08/06/2024 General Patient Information Name: Lindasy Acuna Gender: female Date of : 1945 [...] speech and L hemiplegia. She presented to [facility] and was seen on Telestroke, NIHSS 12. [...] Thin Barium: teaspoon x2, straw x2 Varibar Pierpont Barium: straw x1 Varibar Thin Honey Barium: [...] recommend NPO and nonoral meds. Ongoing skilled ARCHEOLOGY FACULTY MEMBER services indicated to address deficits and maximize [...] Therapeutic Interventions Met: yes, treatment indicated Acute ARCHEOLOGY FACULTY MEMBER Goals Plan of Care by RIKI Gonzales at 08/06/2024 9:33 AM Version 1 of 1 Problem: Dysphagia Goal: MBS - Patient will participate in Modified Barium Swallow (MBS) Study to objectively assess oropharyngeal swallow function to most appropriately guide ARCHEOLOGY FACULTY MEMBER plan of care Outcome: Met Goal: Bolus [...] Treatment Time (skilled, billable minutes): 20 minutes ARCHEOLOGY FACULTY MEMBER Evaluation and Treatment Time MBS/Motion Fluoroscopic Swallowing Eval 56877: 20 Speech Language Pathologist: RIKI Gonzlaes Time In: 931 Time Out: 951 Total Visit Time: 20 minutes Total Treatment Time (skilled, billable minutes): 20 minutes Non-billable assistance during session: NA Assisted by during session: RA Melendez PPE used during patient interaction: gloves Patient location/status at end of session: bed with head of bed elevated Patient alarms at end of session: none altered (RN present) ARCHEOLOGY FACULTY MEMBER Evaluation and Treatment Time MBS/Motion Fluoroscopic Swallowing Eval 70849: 20 Upon discontinuation of Acute Care Speech Therapy Services or patient discharge from the hospital this note represents the current Speech Therapy Discharge Summary [facility] Discharge instructions* Discharge Instructions* Jhoana Casarez APRN-FOUNDER PRESIDENT AND CEO - 08/06/2024 8:38 AM EDT Please take [...] you at all times. Stroke Education: visit [email or web address] What are the most common symptoms of [...] all ordered medications [x] Avoid non-prescription or uosx-lia-ncjvlrq medication not cleared by your physician [x] [...] may call the neurovascular doctors office at [phone], if you have questions Mon-Fri between 8:30 am and 4:30 pm. - For off hours or the weekend you may call the office or the hospital edge cutting machine operator at and ask for the stroke resident rehabilitation services director to be paged. - If you have any other questions or needs, please call Aniyah DOSS, RN, Stroke Nurse Navigator at [phone] Mon-Fri between 7:00am and 3:00pm. - Additional assistance may be found by reaching out to our Case Management Office at [phone]. *In the event of an Emergency: If you have a physical or psychiatric emergency call 911 or go to your local emergency department. You should also call your outpatient provider's emergency number. Other reference numbers: [facility] Intake Office at [phone]; [facility] at 942-300-6945; or Suicide Prevention Hotline at 846-898-1280. *Helpful phone numbers: Free Crisis Hotline: 6-508-075-TALK ( ) Suicide Hotline: 933.173.1217 Seniors Suicide Hotline: 757.412.1424 [facility] Youth: 613.834.8017 Mental Health of [place]: 172.686.3366 (free counseling) [facility] Access Hotline: 514-948-ALEQ (366-596-8776) 24-hour crisis text hotline: Text the word "4hope" to 759-266 for crisis support. Texting this number is [...] you may qualify for Medicaid/public assistance: The [facility] Department of Job and Family Services can now process zayas (TANF), food (SNAP) and Medicaid Applications over the phone. Please call 5-511-066-MAINE ([phone]) and apply over the phone or apply online at www.benefits.[place].gov. Monday-Monday 8am-12pm noon. Medication Assistance Programs [employer] members can buy 100+ common prescriptions for FREE, $3 or $6. Annual membership is $36 for individuals and $72 for families (up to 6 people, including pets). Sign up online or enroll at your nearest pharmacy! -[employer], web site can provide a significant number of coupons for medications at a much lower raymundo. [place] Department of Aging The Department of Aging administers programs and services to meet the needs of older [place]. Services and resources offered per [facility] may include transportation, housekeeping, meals and nutrition, personal care, case management, safety monitoring, home medical equipment, legal services, manager financial systems, health and wellness, education, caregiver support, respite care, etc. Call to be connected to the area agency on aging serving your community or visit aging.[place].gov/find-services. Request a consultation with a community resource expert at ltssi.age.[place].[facility]/ [facility] Stroke Support The [facility] Stroke Support Group is for stroke survivors, friends, and family members. Meets on the Monday of each month from 6:30pm-7:30pm at [facility] ([address]; [place] [address]). Contact Chela Nolan, at [phone] or [email or web address]. If you are outside of the [facility], contact The [place] Stroke [employer] at www.stroke.org or 7-355-0-STROKE or for support groups in your area. You may also refer to the Your Care after a Stroke education booklet at [email or web address] for additional resources. * Medications* PATRIZIA Miner - 08/06/2024 8:38 AM EDT Know your medicines Make sure you know why you are taking each medicine. Make a master list of all your medicines. Write down the medicine names and doctors' names. Includedoses and side effects too. And write down why you take each medicine. Include all prescription fxgdmrk-zwo-khbbydx medicines, vitamins, and supplements. Keep this list [...] plan your refills so that you can pecan picker all your medicines at the same time. This can mean fewer trips to the drugstore. If we have prescribed you a new medication during your stay, please contact with your primary physician for refills * Discharge Instr - Activity* PATRIZIA Mienr - 08/06/2024 8:38 AM EDT Activity -- [...] every 6 months. documented in this encounterOSU [facility] History and physical note* PATRIZIA Lam [...] Visual richards intact to confrontation. PERRL. 3mm cardiovascular surgeon III, IV and : EOMI. No nystagmus. [...] SpO2 >92%; wean FiO2 as tolerated - [id number], encourage pulmonary toileting Cards: Essential HTN HLD [...] in place Discussed with NCCU Attending, Dr. Jcakie Mccoy, ELECTRONIC ORGAN TECHNICIAN-FOUNDER PRESIDENT AND CEO 08/02/24 6:24 PM Check the treatment team to find the assigned neurocritical care provider (resident, fellow, HEARING AID ASSISTANT, orPA) or page/call the corresponding number below NCC1 (Beds 7709-1310): [place] # [phone], pager #[phone] NCC2 (Beds 2844-5190, 12 Nando, and overflow): [place] #: [phone], pager #[phone] Cosigned by Richard Mejia MD at 08/02/2024 11:14 PM EDT documented in this [facility]U [facility] Nurse Note* Rachell Ruffin RN - 08/02/2024 3:13 PM EDT 9 cc air instilled in right radial TR band @ 1520. Glasses placed in bag wit label. Sent to PACU with patient on cart. documented in this encounterU [facility] Discharge summary [facility] Medical Records Department [address] [place] [address] Emergency Department Summary 08/02/24 MR#: [id number] Acct: [id number] Name: LINDSAY ACUNA Rep #:[id number] : [...] the EMR. states they returned home from [facility] about 1.5-2 weeks ago, and they both had colds. He is better, but she is "on round 2." [facility] Medical History Paroxysmal atrial fibrillation with RVR [...] 71.4 H Lymph % (Auto) 17.9 L Alexander % (Auto) 8.9 Eos % (Auto) 1.0 [...] on 08/02/2024 at 1250 hours. Reading Location: [facility] Head/Neck CTA 08/02/24 12:24 IMPRESSION: RIGHT CAROTID: Mild degree of calcific plaque at the origin of the right internal carotid artery. LEFT CAROTID: Mild degree of calcific plaque at the origin of the left internal carotid artery. VERTEBRALS: Dominant left vertebral artery INTRACRANIAL: Unremarkable Other impression: No significant stenosis seen. Reading Location: [place] [address] Rhythm Strip Rhythm Strip: A-fib Rate: 90 Ectopy: None EKG Initial EKG: Attestation: I personally reviewed and interpreted this EKG as follows: Interpretation: No Acute Injury Pattern, Atrial Fibrillation and Non-Specific ST Changes Management Discussion w/another healthcare provider: Line Assigner ([facility] stroke neurology) and Radiologist Stroke Documentation [...] min), Including time spent:, Discussing w/Patient &/or Family/Inside Sales Advisor, Discussing w/Consultants, Arranging Admission or Transfer and [...] MD [Primary Care Provider] - Print Language: Swiss Disposition Disposition: Acute Care Hospital [facility]charge [facility] [place] What to do if you have Problems For any increased pain, shortness of breath, bleeding, nausea or vomiting, chestpain, or any unexpected problems, contact your Primary Care Provider. Call Doctors Registry ([phone]) or report tothe closest Emergency Room. Call 911 if necessary. 08/02/24 1316 Cosigner Signature (if applicable): CC: Dr. Kameron Caruso MD ~ Signed [facility]03-21-2025 Radiology Diagnostic study note [facility] Imaging Services [address] [place], [place] [address] STROKE CTA Head AND Neck W/Con MR#: [id number] Acct: [id number] Name: LINDSAY ACUNA Rep #: [id number] : 1945 F 78 From: Regulo Hargrove MD PCP: Dr. Kameron Caruso MD Status: RE G ER Study:STROKE CTA Head AND Neck W/Con Date of Exam: 08/02/24 Exam# [id number] Ordering Dr: Roby Morgan MD PROCEDURE: STROKE [...] impression: No significant stenosis seen. Reading Location: [facility]- CC: Dr. Pieter Morgan MD; Dr. Kameron Caruso MD ~ Ceramic Maker Demonstrator: Signed [facility]03-21-2025 Radiology Diagnostic study note [facility] Imaging Services [address] [place] [address] STROKE Brain/Head without Cont MR#: [id number] Acct: [id number] Name: LINDSAY ACUNA Rep #: [id number] : 1945 F 78 From: Shira Cardoso MD PCP: Dr. Kameron Caruso MD Status: RE G ER Study:STROKE Brain/Head without Cont Date of Exam: 08/02/24 Exam# [id number] Ordering Dr: Roby Morgan MD EXAM: CT [...] on 08/02/2024 at 1250 hours. Reading Location: [facility] CC: Dr. Pieter Morgan MD; Dr. Kameron Caruso MD ~ Ceramic Maker Demonstrator: Signed [facility]02-19-2025 Telephone encounter Note* Telephone Encounter - Mj Glover APRN.CNP - 07/03/2024 12:28 PM EST The following approved medication requests have been transmitted electronically. Requested Prescriptions Signed Prescriptions Disp Refills doxycycline monohydrate (MONODOX) 100 mg capsule 56 capsule 0 Sig: Take 1 capsule by mouth two times a day for 28 days. Authorizing Provider: MJ GLOVER APRN.CNP [facility]02-19-2025 Miscellaneous Notes* Telephone Encounter - Mj [...] calling: self Call patient at: on cell [phone] (home) [phone] (cell) Was an appointment scheduled: No Closing statement: Results or non-symptom based questions: Thank you for calling [facility], your call will be returned within the next business day. Katrina Coombs documented in this encounterLima Memorial Hospital02-19-2025 Telephone encounter Note * Telephone Encounter [...] calling: self Call patient at: on cell [phone] (home) [phone] (cell) Was an appointment scheduled: No Closing statement: Results or non-symptom based questions: Thank you for calling [facility], your call will be returned within the next business day. Katrina Coombs [facility]02-18-2025 Telephone encounter Note* Telephone Encounter - Katia Grullon RN - 07/02/2024 11:57 AM EST Patient calls and is requesting Cardiology referral to be faxed to [facility]. Faxed referral as requested. Katia Grullon RN [facility]02-18-2025 Miscellaneous Notes* Telephone Encounter - Katia Grullon RN - 07/02/2024 11:57 AM EST Patient calls and is requesting Cardiology referral to be faxed to [facility]. Faxed referral as requested. Katia Grullon RN documented in this encounterLima Memorial Hospital02-17-2025 Telephone encounter Note * Telephone Encounter - Bret Arambula LPN - 07/01/2024 12:39 PM EST Patient notified of Rx, verbalizes understanding of instructions. Bret Arambula LPN [facility]02-17-2025 Miscellaneous Notes* Telephone Encounter - Bret [...] calling: self Call patient at: on cell [phone] (home) [phone] (cell) Was an appointment scheduled: Leslie Swanson documented in this encounterLima Memorial Hospital02-17-2025 Telephone encounter Note * Telephone Encounter [...] 7 days. Authorizing Provider: MJ GLOVER APRN.CNP [facility]02-14-2025 Telephone encounter Note* Telephone Encounter - Adenike Walton MA - 06/28/2024 3:08 PM EST Please review pt message and advise. Adenike Walton MA [facility]02-14-2025 Telephone encounter Note* Telephone Encounter - [...] calling: self Call patient at: on cell [phone] (home) [phone] (cell) Was an appointment scheduled: Leslie Swanson [address]12-2025 Instructions* Patient Instructions* Emma Sotomayor APRN.CNP - 06/26/2024 10:00 AM EST Recommend consult with cardiology Continue to take all medication as prescribed Get repeat thyroid labs when you get back from vacation Contact the office with preferred malaria medication Follow up in 6 months. documented in this encounterLima Memorial Hospital02-12-2025 History of Present illness Narrative* Emma [...] discussed and patient voices understanding. Emma Sotomayor APRN.FOUNDER PRESIDENT AND CEO This note was partially generated using Marketbright voice recognition system. Note was reviewed for accuracy. There may be minor misspellings or grammar miscues with Marketbright voice recognition. documented in this encounterLima Memorial Hospital02-12-2025 NoteHNO ID: [id number] Author: EMMA SOTOMAYOR APRN.GARRETT Service: ? Author [...] heartburn o (more content not included)...[facility]02-10-2025 Telephone encounter Note* Telephone Encounter - Kameron Caruso MD - 06/24/2024 7:26 PM EST Noted Kameron Caruso MD [facility]02-10-2025 Miscellaneous Notes* Telephone Encounter - Kameron [...] this. Katia Grullon RN documented in this encounterLima Memorial Hospital02-10-2025 Telephone encounter Note * Telephone Encounter - Katia Grullon RN - 06/24/2024 1:20 PM EST Patient calls and states that she is going to be going to [place] and will need medications for Malaria Patient does have appointment with provider tomorrow, but wanted to give provider heads up that she will be needing this. Katia Grullon RN [facility]01-28-2025 Telephone encounter Note* Telephone Encounter - Naima Marshall RN - 06/11/2024 4:17 PM EST Pt called and is notified of providers results and instructions. Pt voices understanding. Naima Marshall RN [facility]01-28-2025 Miscellaneous Notes* Telephone Encounter - Naima Marshall RN - 06/11/2024 4:17 PM EST Pt called and is notified of providers results and instructions. Pt voices understanding. Naima Marshall RN * Telephone Encounter - Kamerno Caruso MD - 06/11/2024 2:42 PM EST Please notify patient that her echocardiogram looks OK; continue with the meds as prescribed. Kameron Caruso MD documented in this encounterLima Memorial Hospital01-28-2025 Telephone encounter Note * Telephone Encounter [...] and pick them up. Naima Marshall RN [facility]01-28-2025 Miscellaneous Notes* Telephone Encounter - Naima [...] call and advise Pt. documented in this encounterLima Memorial Hospital01-28-2025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 unspecified whether tank terminal gauger insulin use (HCC)- Primary Essential hypertension, benign Chronic kidney disease, stage 3a (HCC) Hyperlipidemia, unspecified hyperlipidemia type Hypothyroidism, unspecified type Edema of left lower leg Memory loss documented in this encounter [facility] note* Diagnosis Essential hypertension, benign- [...] unspecified type (HCC) documented in this encounter [facility] note* Diagnosis Atrial fibrillation, unspecified type (HCC)- Primary Hypothyroidism, unspecified type Need for malaria prophylaxis documented in this encounter [facility] note* Diagnosis History of traveler's diarrhea- Primary Personal history of other diseases of digestive system documented in this encounter [facility] note* Diagnosis History of traveler's diarrhea Personal history of other diseases of digestive system documented in this encounter [facility] noteNo assessment information availableWSt. Rita's Hospital Work Phone: Evaluation note* Diagnosis Acute ischemic right MCA stroke- Primary Unspecified cerebral artery occlusion with cerebral infarction Cerebrovascular accident (CVA), unspecified mechanism Renal disease (High Serum Creatinine) Unspecified disorder of kidney and ureter Type 2 diabetes mellitus with hyperglycemia Type II or unspecified type diabetes mellitus without mention of complication, not stated as uncontrolled [facility] N[facility] No data available for this section [facility] Reason for referral (narrative)* Outpatient Procedure (Routine) - Pending Review Specialty Diagnoses / Procedures Referred By Qiana t Referred To [facility] Diagnoses Atrial fibrillation, unspecified type (HCC) Procedures ECHO ECHO TTHRC R-T 2D W/WOM-MODE COMPL SPEC&COLR D Kameron Caruso MD [address] [place] [address] [facility] [place] [address] [place] [address] Referral ID Status Reason Start Date Expiration Date Visits Requested Visits Authorized [id number] Pending Review Auto-Generat ed Referral 05/31/2024 05/31/2025 1 1 * Outpatient Procedure (Routine) - New Request Specialty Diagnoses / Procedures Referred By Qiana almodovar Referred [facility] Diagnoses Irregular heart beat Procedures ECG COMPLETE ECG ROUTINE ECG W/LEAST 12 LDS W/I&R Kameron Caruso MD [address] [place] [address] [facility] [place] [address] [place] [address] Referral ID Status Reason Start Date Expiration Date Visits Requested Visits Authorized [id number] New Request Auto-Generat ed Referral 05/31/2024 05/31/2025 1 1 [facility])No reason for referral information availableWSt. Rita's Hospital Work Phone: Reason for visit Narrative* Auth/Cert Specialty Diagnoses / Procedures Referred By Qiana almodovar Referred To Contact Diagnoses Acute ischemic right MCA stroke Cerebrovascular Accident (Level A Ishemic Stroke) Prema Rodgers MD [address] [place] [address] Phone: tel: fax: [facility] [address] [place] [address] Referral ID Status Reason Start Date Expiration Date Visits Re quested Visits Authorized [id number] 1 1 [facility] Summary Purpose Family History No Family History Records Found Relationship Condition Age at Onset Recorded Date/T monse mother Diabetes mellitus Unknown Hypertension Unknown Psychiatric disorder Unknown grandmother Malignant neoplasm Unknown sister Disorder of thyroid Unknown Advance Directives No Advanced Directives Records FoundDocuments on File Type Date Recorded Patient Chiropractic Assistant 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 Advance Directives and Living Will Power of Uranium Processing Supervisor Latest Code Status on File Code Status Date Activated Date Inactivated Comments Full Code 01/09/2019 10:16 AM Latest Code Status on File Code Status Date Activated Date Inactivated Comments Full Code 10/16/2019 9:16 AM Full Code 01/09/2019 10:16 AM 01/09/2019 2:23 PM Documents on File Type Date Recorded Patient Chiropractic Assistant 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 Advance Directive(s) 11/07/2018 6:45 AM Advance Directive(s) 09/29/2015 10:09 PM Advance Directive Response Recorded Date/ Time Living Will No August 02, 2024 12:46pm Do you have a Healthcare Power of Uranium Processing Supervisor? No August 02, 2024 12:46pm Date Activated [...] patient had a polyp identified by on {time:43867}. Biopsies {are/were w not:9034} taken. The patient's usual bowel pattern is {bowel pattern:26181}. Bowel movements {bowel changes:56908} . {abd pain:72244}. The patient has noted{bleeding with BM:41942}. The patient {does/do/not:32589} have a family history of colon polyps. The patient {does/do/not:00503} have a family history of colon cancer. [...] October 01, 2024 5:00a m AFIB ([facility]) October 02, 2024 9:29a m LAB WORK October 08, 2024 5:00a m MONTHLY EXAM October 09, 2024 5:45p m RETIREMENT LAB WORK October 15, 2024 5:0 0am RETIREMENT LAB WORK October 22, 2024 5: 00am RETIREMENT LAB WORK October 23, 2024 5: 00am RETIREMENT LAB WORK October 29, 2024 5: 00am [...] October 01, 2024 5:00a m AFIB ([facility]) October 02, 2024 9:29a m LAB WORK October 08, 2024 5:00a m MONTHLY EXAM October 09, 2024 5:45p m RETIREMENT LAB WORK October 15, 2024 5:0 0am RETIREMENT LAB WORK October 22, 2024 5: 00am RETIREMENT LAB WORK October 23, 2024 5: 00am RETIREMENT LAB WORK October 29, 2024 5: 00am NEW CONCERN October 30, 2024 6:00 pm RETIREMENT LAB WORK November 12, 2024 5:0 0am [...] October 01, 2024 5:00a m AFIB ([facility]) October 02, 2024 9:29a m LAB WORK October 08, 2024 5:00a m MONTHLY EXAM October 09, 2024 5:45p m RETIREMENT LAB WORK October 15, 2024 5:0 0am RETIREMENT LAB WORK October 22, 2024 5: 00am NEW CONCERN October 22, 2024 12:4 5pm RETIREMENT LAB WORK October 23, 2024 5: 00am RETIREMENT LAB WORK October 29, 2024 5: 00am NEW CONCERN October 30, 2024 6:00 pm RETIREMENT LAB WORK November 12, 2024 5:0 0am [...] October 01, 2024 5:00a m AFIB ([facility]) October 02, 2024 9:29a m LAB WORK October 08, 2024 5:00a m MONTHLY EXAM October 09, 2024 5:45p m RETIREMENT LAB WORK October 15, 2024 5:0 0am RETIREMENT LAB WORK October 22, 2024 5: 00am NEW CONCERN October 22, 2024 12:4 5pm RETIREMENT LAB WORK October 23, 2024 5: 00am RETIREMENT LAB WORK October 29, 2024 5: 00am FU VISIT October 29, 2024 7:15 pm NEW CONCERN October 30, 2024 6:00 pm RETIREMENT LAB WORK November 12, 2024 5:0 0am Additional Source Comments INFORMATION SOURCE (unrecogn ized section and content) DATE CREATED AUTHOR 08/31/2018 [facility] ([place]) DATE CREATED AUTHOR AUTHOR'S ORGANIZ ATION 10/18/2019 [facility] DATE CREATED AUTHOR AUTHOR'S ORGANIZ ATION 08/04/2024 [facility] DATE CREATED AUTHOR AUTHOR[facility]S ORGANIZ ATION [facility] DATE CREATED AUTHOR AUTHOR'S ORGANIZ ATION 09/01/2024 [facility] DATE CREATED AUTHOR AUTHOR'S ORGANIZ ATION 10/13/2024 [facility] DATE CREATED AUTHOR AUTHOR'S ORGANIZ ATION 11/08/2024 [facility] DATE CREATED AUTHOR AUTHOR'S ORGANIZ ATION 12/19/2024 [facility] Source Comments (unrecognize d section and content) In the event this informatio n is protected by the Federal Confidentiality of Alcohol and Drug Abuse Patient Records regulations: The Federal rules restrict any use of the information to criminally investigate or prosecute any alcohol or drug abuse patient.[facility] the event this information is protected by the Federal Confidentiality of Alcohol and Drug Abuse Patient Records regulations: The Federal rules restrict any use of the information to criminally investigate or prosecute any alcohol or drug abuse patient.[facility] HospitalIn the event this information is protected by the Federal Confidentiality of Alcohol and Drug Abuse Patient Records regulations: The Federal rules restrict any use of the information to criminally investigate or prosecute any alcohol or drug abuse patient.[facility] HospitalIn the event this information is protected by the Federal Confidentiality of Alcohol and Drug Abuse Patient Records regulations: The Federal rules restrict any use of the information to criminally investigate or prosecute any alcohol or drug abuse patient.[facility] HospitalIn the event this information is protected by the Federal Confidentiality of Alcohol and Drug Abuse Patient Records regulations: The Federal rules restrict any use of the information to criminally investigate or prosecute any alcohol or drug abuse patient.[facility] HospitalIn the event this information is protected by the Federal Confidentiality of Alcohol and Drug Abuse Patient Records regulations: The Federal rules restrict any use of the information to criminally investigate or prosecute any alcohol or drug abuse patient.[facility] HospitalIn the event this information is protected by the Federal Confidentiality of Alcohol and Drug Abuse Patient Records regulations: The Federal rules restrict any use of the information to criminally investigate or prosecute any alcohol or drug abuse patient.[facility] HospitalIn the event this information is protected by the Federal Confidentiality of Alcohol and Drug Abuse Patient Records regulations: The Federal rules restrict any use of the information to criminally investigate or prosecute any alcohol or drug abuse patient.[facility] HospitalIn the event this information is protected by the Federal Confidentiality of Alcohol and Drug Abuse Patient Records regulations: The Federal rules restrict any use of the information to criminally investigate or prosecute any alcohol or drug abuse patient.[facility] HospitalIn the event this information is protected by the Federal Confidentiality of Alcohol and Drug Abuse Patient Records regulations: The Federal rules restrict any use of the information to criminally investigate or prosecute any alcohol or drug abuse patient.[facility] HospitalIn the event this information is protected by the Federal Confidentiality of Alcohol and Drug Abuse Patient Records regulations: The Federal rules restrict any use of the information to criminally investigate or prosecute any alcohol or drug abuse patient.[facility] HospitalIn the event this information is protected by the Federal Confidentiality of Alcohol and Drug Abuse Patient Records regulations: The Federal rules restrict any use of the information to criminally investigate or prosecute any alcohol or drug abuse patient.[facility] HospitalIn the event this information is protected by the Federal Confidentiality of Alcohol and Drug Abuse Patient Records regulations: The Federal rules restrict any use of the information to criminally investigate or prosecute any alcohol or drug abuse patient.[facility] HospitalIn the event this information is protected by the Federal Confidentiality of Alcohol and Drug Abuse Patient Records regulations: The Federal rules restrict any use of the information to criminally investigate or prosecute any alcohol or drug abuse patient.[facility] HospitalIn the event this information is protected by the Federal Confidentiality of Alcohol and Drug Abuse Patient Records regulations: The Federal rules restrict any use of the information to criminally investigate or prosecute any alcohol or drug abuse patient.[facility] HospitalIn the event this information is protected by the Federal Confidentiality of Alcohol and Drug Abuse Patient Records regulations: The Federal rules restrict any use of the information to criminally investigate or prosecute any alcohol or drug abuse patient.[facility] HospitalIn the event this information is protected by the Federal Confidentiality of Alcohol and Drug Abuse Patient Records regulations: The Federal rules restrict any use of the information to criminally investigate or prosecute any alcohol or drug abuse patient.[facility] HospitalIn the event this information is protected by the Federal Confidentiality of Alcohol and Drug Abuse Patient Records regulations: The Federal rules restrict any use of the information to criminally investigate or prosecute any alcohol or drug abuse patient.[facility] HospitalIn the event this information is protected by the Federal Confidentiality of Alcohol and Drug Abuse Patient Records regulations: The Federal rules restrict any use of the information to criminally investigate or prosecute any alcohol or drug abuse patient.[facility] HospitalIn the event this information is protected by the Federal Confidentiality of Alcohol and Drug Abuse Patient Records regulations: The Federal rules restrict any use of the information to criminally investigate or prosecute any alcohol or drug abuse patient.[facility] HospitalIn the event this information is protected by the Federal Confidentiality of Alcohol and Drug Abuse Patient Records regulations: The Federal rules restrict any use of the information to criminally investigate or prosecute any alcohol or drug abuse patient.[facility] HospitalIn the event this information is protected by the Federal Confidentiality of Alcohol and Drug Abuse Patient Records regulations: The Federal rules restrict any use of the information to criminally investigate or prosecute any alcohol or drug abuse patient.[facility] HospitalIn the event this information is protected by the Federal Confidentiality of Alcohol and Drug Abuse Patient Records regulations: The Federal rules restrict any use of the information to criminally investigate or prosecute any alcohol or drug abuse patient.[facility] HospitalIn the event this information is protected by the Federal Confidentiality of Alcohol and Drug Abuse Patient Records regulations: The Federal rules restrict any use of the information to criminally investigate or prosecute any alcohol or drug abuse patient.[facility] HospitalIn the event this information is protected by the Federal Confidentiality of Alcohol and Drug Abuse Patient Records regulations: The Federal rules restrict any use of the information to criminally investigate or prosecute any alcohol or drug abuse patient.[facility] HospitalIn the event this information is protected by the Federal Confidentiality of Alcohol and Drug Abuse Patient Records regulations: The Federal rules restrict any use of the information to criminally investigate or prosecute any alcohol or drug abuse patient.[facility] HospitalIn the event this information is protected by the Federal Confidentiality of Alcohol and Drug Abuse Patient Records regulations: The Federal rules restrict any use of the information to criminally investigate or prosecute any alcohol or drug abuse patient.[facility] HospitalIn the event this information is protected by the Federal Confidentiality of Alcohol and Drug Abuse Patient Records regulations: The Federal rules restrict any use of the information to criminally investigate or prosecute any alcohol or drug abuse patient.[facility] Reason for Visit (unrecogniz ed section [...] Reason Comments request for medication Reason Comments [facility] requesting verbal agree to f [facility] Teams (unrecognized sec tion and content) Asset Coordinator Relationship Specialty Start Date End Date Kameron Caruso MD [address] [place] [address] PCP - General Family Practice 09/21/15 Asset Coordinator Relationship Specialty Start Date End Date Kameron Caruso MD [address] [place] [address] PCP - General Family Practice 09/21/15 Asset Coordinator Relationship Specialty Start Date End Date Kameron Caruso MD [address] [place] [address] PCP - General Family Practice 09/21/15 Asset Coordinator Relationship Specialty Start Date End Date Kameron Caruso MD [address] [place] [address] PCP - General Family Practice 09/21/15 Asset Coordinator Relationship Specialty Start Date End Date Kameron Caruso MD [address] [facility] [place] [address] PCP - General Family Practice 09/21/15 Asset Coordinator Relationship Specialty Start Date End Date Kameron Caruso MD [address] [place] [address] PCP - General Family Practice 09/21/15 Asset Coordinator Relationship Specialty Start Date End Date Kameron Caruso MD [address] [place] [address] PCP - General Family Medicine 09/21/15 Asset Coordinator Relationship Specialty Start Date End Date Kameron Caruso MD [address] [place] [address] PCP - General Family Medicine 09/21/15 Asset Coordinator Relationship Specialty Start Date End Date Kameron Caruso MD [address] [place] [address] PCP - General Family Medicine 09/21/15 Asset Coordinator Relationship Specialty Start Date End Date Kameron Caruso MD [address] [place] [address] PCP - General Family Medicine 09/21/15 Asset Coordinator Relationship Specialty Start Date End Date Kameron Caruso MD [address] [place] [address] PCP - General Family Medicine 09/21/15 Asset Coordinator Relationship Specialty Start Date End Date Kameron Caruso MD [address] [place] [address] PCP - General Family Medicine 09/21/15 Asset Coordinator Relationship Specialty Start Date End Date Kameron Caruso MD [address] [place] [address] PCP - General Family Medicine 09/21/15 Asset Coordinator Relationship Specialty Start Date End Date Kameron Caruso MD [address] [place] [address] PCP - General Family Medicine 09/21/15 Asset Coordinator Relationship Specialty Start Date End Date Kameron Caruso MD [address] [place] [address] PCP - General Family Medicine 09/21/15 Asset Coordinator Relationship Specialty Start Date End Date Kameron Caruso MD [address] [place] [address] PCP - General Family Medicine 09/21/15 Emma Sotomayor APRN.FOUNDER PRESIDENT [employer] CEO [address] [place] [address] Radiation / Chemistry Technician Family Medicine 04/21/24 Mj Glover APRN.FOUNDER PRESIDENT [employer] CEO [address] [place] [address] Radiation / Chemistry Technician Family Medicine 04/30/24 Asset Coordinator Relationship Specialty Start Date End Date Kameron Caruso MD [address] [place] [address] PCP - General Family Medicine 09/21/15 Emma Sotomayor APRN.FOUNDER PRESIDENT AND CEO [address] [place] [address] Radiation / Chemistry Technician Family Medicine 04/21/24 Mj Glover APRN.FOUNDER PRESIDENT AND CEO [address] [place] [address] [facility] Asset Coordinator Relationship Specialty Start Date End Date Kameron Caruso MD [address] [place] [address] PCP - General Family Medicine 09/21/15 Emma Sotomayor APRN.FOUNDER PRESIDENT AND CEO [address] [place] [address] Radiation / Chemistry Technician Family Medicine 04/21/24 Mj Glover APRN.FOUNDER PRESIDENT AND CEO [address] [place] [address] Radiation / Chemistry Technician Family Medicine 04/30/24 Asset Coordinator Relationship Specialty Start Date End Date Kameron Caruso MD [address] [place] [address] PCP - General Family Medicine 09/21/15 Emma Sotomayor APRN.FOUNDER PRESIDENT AND CEO [address] [place] [address] Radiation / Chemistry Technician Family Medicine 04/21/24 Mj Glover APRN.FOUNDER PRESIDENT AND CEO [address] [place] [address] Radiation / Chemistry Technician Family Medicine 04/30/24 Asset Coordinator Relationship Specialty Start Date End Date Kameron Caruso MD [address] [place] [address] PCP - General Family Medicine 09/21/15 Emma Sotomayor APRN.FOUNDER PRESIDENT AND CEO [address] [place] [address] Radiation / Chemistry Technician Family Medicine 04/21/24 Mj Glover APRN.FOUNDER PRESIDENT AND CEO [address] [place] [address] Radiation / Chemistry Technician Family Medicine 04/30/24 Asset Coordinator Relationship Specialty Start Date End Date Kameron Caruso MD [address] [place] [address] PCP - General Family Medicine 09/21/15 Emma Sotomayor APRN.FOUNDER PRESIDENT AND CEO [address] [place] [address] Radiation / Chemistry Technician Family Medicine 04/21/24 Mj Glover APRN.FOUNDER PRESIDENT AND CEO [address] [place] [address] Radiation / Chemistry Technician Family Medicine 04/30/24 Asset Coordinator Relationship Specialty Start Date End Date Kameron Caruso MD [address] [place] [address] PCP - General Family Medicine 09/21/15 Emma Sotomayor APRN.FOUNDER PRESIDENT AND CEO [address] [place] [address] Radiation / Chemistry Technician Family Medicine 04/21/24 Mj Glover APRN.FOUNDER PRESIDENT AND CEO [address] [place] [address] Radiation / Chemistry Technician Family Medicine 04/30/24 Team Status: Active Member Role Status Dates Dr. Kameron Caruso MD Primary Care Provider Active Team Status: Inactive Member Role Status Dates Dr. Kameron Caruso MD Primary Care Provider Active Start: August 02, 2024 End: August 02, 2024 Dr. Pieter Morgan MD Emergency Provider Active Start: August 02, 2024 End: August 02, 2024 Asset Coordinator Relationship Specialty Start Date End Date Kameron Caruso MD [address] [place] [address] PCP - General Family Medicine 08/03/24 Asset Coordinator Relationship Specialty Start Date End Date Kameron Caruso MD [address] [place] [address] PCP - General Family Medicine 09/21/15 Emma Sotomayor APRN.FOUNDER PRESIDENT AND CEO [address] [place] [address] Radiation / Chemistry Technician Family Medicine 04/21/24 Mj Glover APRN.FOUNDER PRESIDENT AND CEO [address] [place] [address] Radiation / Chemistry Technician Family Medicine 04/30/24 Team Status: Inactive Member [...] End: September 11, 2024 Bret Snyder NP, HEARING AID ASSISTANT-C Attending Provider Active Start: September 11, 2024 [...] 2024 End: October 09, 2024 Bret Snyder HEARING AID ASSISTANT, HEARING AID ASSISTANT-C Attending Provider Active Start: October 09, 2024 [...] End: October 30, 2024 Bret Snyder NP, HEARING AID ASSISTANT-C Attending Provider Active Start: October 30, 2024 [...] 2024 End: October 22, 2024 Bret Snyder NP HEARING AID ASSISTANT-C Attending Provider Active Start: October 22, 2024 [...] End: October 30, 2024 Bret Snyder NP, HEARING AID ASSISTANT-C Attending Provider Active Start: October 30, 2024 [...] 2024 End: October 30, 2024 Bret Snyder HEARING AID ASSISTANT, HEARING AID ASSISTANT-C Attending Provider Active Start: October 30, 2024 [...] Eng RN) 2040 (Given - Provider: Shanna Catalna RN) cefTRIAXone (ROCEPHIN) 1 g in dextrose [...] Eneida Cespedes RN)1757 (Given - Provider: Eneida [place], RN) 0018 (Given - Provider: Shanna Catalan [...] modification) on 08/10/24 at 0900, Until Discontinued 903 (Given - [...] 50% needed, contact pharmacy or obtain from [facility] cart ++ diphenhydrAMINE (BENADRYL) tablet 25 [...] glucose is greater than 200mg/dl, then notify warehouse distribution associate. And BLOOD GLUCOSE (POC DEVICE) (CANCELED) Routine, [...] at 1301, Until Specified, Who to Notify: Value Analyst, For all Blood Glucose LESS THAN 80 mg/dl, notify Value Analyst after treatment per Hypoglycemia in Non- Adults [...] BE BASED ON THE PRIMARY CLINICAL RECORDS. [facility]. provides no warranty or guarantee of the accuracy or completeness of information in this document.
[2024-12-24 07:12] LABS: Hematocrit 37.9 % (37-47); Hemoglobin 12.2 g/dL (12.0-15.0); Immature Granulocytes Count 0.040 X10^3/uL (0.0-0.0); Mean Corp Hgb Conc 32.2 g/dL (32-36); Mean Corpuscular Volume 92.2 fL (81-99); Mean Platelet Vol. 12.2 fl (6.2-12.0); NRBC Flagged by Analyzer 0 % (0-5); Platelet Count 256 K/mm3 (150-450); RBC Distribution Width CV 14.4 % (11.6-14.6); RBC Distribution Width SD 48.8 fl (35.1-43.9); Red Blood Count 4.11 M/mm3 (4.2-5.4); White Blood Count 9.1 K/mm3 (4.4-11.0)
[2024-12-24 07:26] LABS: Anion Gap 14 (5-15); BUN 13 mg/dL (4-19); BUN/Creat Ratio 18.4 RATIO (10-20); Calcium,Total 9.1 mg/dL (7.6-11.0); Carbon Dioxide 22.1 mmol/L (21.0-32.0); Chloride 101 mmol/L (98-108); Glucose 142 mg/dL (70-99); Potassium 3.4 mmol/L (3.3-5.1)
== END ==
LOC: OLS.WHLTCC 05:00
PROVIDERS: PCP Family Medicine; Visit Provider Internal Medicine
DX: I10 Essential (primary) hypertension (principal); I69.354 Hemiplegia and hemiparesis following cerebral infarction affecting left non-dominant side; I69.391 Dysphagia following cerebral infarction; E11.9 Type 2 diabetes mellitus without complications
CPT/HCPCS: 36415; 80048; 85025

== ENCOUNTER → 2024-12-31 04:00 | Outpatient (REF) | payer MEDICARE, SELFPAY ==
--- OUTSIDE RECORDS SUMMARY | 2024-12-31 04:13 | XMS RPT_ITS | CCD ---
Author Organization [facility] Care Team Providers Care Director Treasurer Name Role Phone KETTY DOWNS Attending Unavailable [...] Kameron Caruso MD Primary Care Provider Светлана BILLIARD PLAYER.Emma TUCKER Unavailable Saurav BILLIARD PLAYER.Mj TUCKER Unavailable JUVENTINO ROGERS Attending Unavailable JUVENTINO ROGERS Admitting Unavailable CATA ALFRED Attending Unavailable CATA ALFRED Admitting Unavailable Dr. Kameron Caruso MD Primary Care Provider Dr. Pieter Morgan MD Emergency Provider Kameron Caruso MD Primary Care Provider Светлана BILLIARD PLAYER.Emma TUCKER Unavailable Unavail able KAMERON CARUSO Referring Unavailable KAMERON CARUSO Primary Care Unavailable KAMERON CARUSO Attending Unavailable KAMERON CARUSO Primary Care Unavailable EMMA SOTOMAYOR Attending Unavailable RICKIELINDA, KAMERON Beebe Primary Care Unavailable RICKIELINDA, KAMERON Beebe Primary Care Unavailable RICKIELINDA, KAMERON Beebe Primary Care Unavailable ELDERLINDA, KAMERON Beebe Referring Unavailable ELDERLINDA, KAMERON Beebe Primary Care Unavailable ELDERLINDA, KAMERON Beebe Attending Unavailable LEO, KAMERON Beebe Primary Care Unavailable RICKIELINDA, KAMERON Beebe Referring Unavailable RICKIELINDA, KAMERON Beebe Primary Care Unavailable LEO, KAMERON Beebe Attending Unavailable LEO, KAMERON Beebe Primary Care Unavailable LEO LAWSON, DR MELO Primary Care Physician Cathy LAWSON, Dr. Stapleton Attending Provider Safia Ruelas MD Attending Provider UnavailDr. Kameron Marquez MD Referring Provider Makayla LAWSON, Dr. Barker Attending Provider [phone] DR KAMERON CARUSO MD Primary Care Unavailab shital HA DO, SILVINO Admitting Unavailable DAE PALMER, SILVINO Attending Unavailable BRYON LAWSON, DR REECE Consulting Unavailab shital HUTTON DO, NANDO Consulting Unavailable HEATON BILLIARD PLAYER-COMPUTER SUPPORT ANALYST, AMI Hwang Consulting Unavaila ari GIBSON PhD, MATTHEW Zamudio Consulting Unavailable CHRISTOS VOSS Attending Unavailable CONSULT, GASTROENTEROLOGY Consulting PIETER Wolf Referring Unavailable PREMA RAMOS Admitting Unavailable LEO, KAMERON Beebe Primary Care Unavailable RICHARD MEJIA Referring Unavailable LUCINDA PEACOCK S Attending Unavailable LUCINDA PEACOCK S Admitting Unavailable Jessenia LAWSON, Dr. Baig Attending Provider Claudio RAWHIDE BONE ROLLER-C, Bret Attending Provider Safia Ruelas MD Referring Provider UnavailDr. Kameron Marquez MD Primary Care Provider Safia Ruelas MD Attending Provider UnavailDr. Safia Ulloa MD Attending Provider Claudio RAWHIDE BONE ROLLER-C, Bret Attending Provider Safia Ruelas MD Referring Provider UnavailDr. Kameron Marquez MD Referring Provider Dr. Mj Benavides MD Attending Provider Oleghe OLS, Efewongbe Referring Unavailabl e Oleghe OLS, Efewongbe Attending Unavailabl e Elderbrock, Kameron Primary Care Unavailable Oleghe OLS, Efewongbe Attending Unavailabl e Elderbrock, Kameron Primary Care Unavailable Elderbrock, Kameron Primary Care Unavailable Oleghe OLS, Efewongbe Attending Unavailabl e Elderbrock, Kameron Primary Care Unavailable [place]ton RAWHIDE BONE ROLLER, Bret Attending Unavailable Oleghe OLS, Efewongbe Attending [...] Care Unavailable Oleghe OLS, Efewongbe Attending Unavailabl Pieter Montano Attending Unavailable Elderbrock, Kameron Primary Care Unavailable Oleghe OLS, Efewongbe Attending Unavailabl e Elderbrock, Kameron Primary Care Unavailable Oleghe OLS, Efewongbe Attending Unavailabl e Elderbrock, Kameron Primary Care Unavailable Elderbrock, Kameron Primary Care Unavailable [place] RAWHIDE BONE ROLLER, Bret Attending Unavailable Elderbro[place], Kameron Primary Care Unavailable [place] RAWHIDE BONE ROLLER, Bret Attending Unavailable Oleghe, Efewongbe Attending Unavailable Elder[place], Kameron Primary Care Unavailable [place] RAWHIDE BONE ROLLER, Bret Attending Unavailable Elderbrock, Kameron Primary Care Unavailable Elderbrock, Kameron Primary Care Unavailable Oleghe, Efewongbe Attending [facility]available [facility] Unavailable Oleghe OLS, Efewongbe Attending Unavailke Snyder RAWHIDE BONE ROLLER, Bret Attending Unavailable Kameron Caruso Primary Care Unavailable Claudio RAWHIDE BONE ROLLER, Bret Attending [facility]available [facility] Referring Unavailable Makayla, Campbell [facility]ending [facility]available Oleghe OLS, Efewongbe Referring Unavailabl e Oleghe OLS, Efewongbe Attending Unavailabl e [facility] Primary Care Unavailable Allergies Allergy Classification Reported Allergen(s) Allergy Type Date of Onset Reaction(s) Facility (2 sources) Sulfonamides (Antibiotic) Propensity to adverse reactions to drug 6 Other (See Comments) [place], [place] (2 sources) Other Propensity to adverse reactions 6 Shortness Of Breath [place], [place] (20 sources) Benzocaine; Translations: [BENZOCAINE] Drug Allergy 6 Rash [facility] Work Phone: (20 sources) Cocaine; Translations: [COCAINE] Drug Allergy 9 Inverted T waves [facility] Work Phone: (20 sources) Sulfonamides (Antibiotic); Translations: [SULFA (SULFONAMIDE ANTIBIOTICS)] Propensity to adverse reactions 6 Intolerance [facility] Work Phone: (20 sources) Perfumes; Translations: [PERFUMES] Propensity to adverse reactions 6 Shortness of Breath [facility] Work Phone: (8 sources) Sulfonamides (Antibiotic) Allergy to substance 5 Unknown [facility] (10 sources) perfume; Translations: [perfume] Allergy to substance 5 Shortness of breath [facility] (1 source) Cocaine; Translations: [cocaine nasal] Drug Allergy [facility] (1 source) Codeine; Translations: [codeine] Drug Allergy Pharyngeal swelling (finding) [facility] (1 source) Sulfonamide; Translations: [sulfa drugs] Drug allergy [facility] (1 source) Benzocaine Drug Allergy 5 [facility] (1 source) Cocaine Drug Allergy 5 [facility] (1 source) Sulfonamides (Antibiotic) Drug allergy (disorder) 5 [facility] Medications Current Medications Medication Drug Class(es) [...] tablet (20 sources) Factor Xa Inhibitor Start: 08-15-2024 apixaban 5 mg oral tablet Dose : 5 mg = 1 tab(s), PEG, BID, 0 Refill(s), 75.4 Start Date: 08/15/24 Status: Ordered Repeat number: 1 Start: 08-13-2024 End: 11-12-2024 Start: 08-11-2024 End: 08-13-2024 Start: 07-03-2024 End: 10-02-2024 Start: 05-31-2024 End: 10-02-2024 take 1 tablet by mouth twice daily Apixaban (Eliquis) 2.5 mg tablet Discontinued 2.5 mg PO TWICE A DAY July 03, 2024 1:00am October 02, 2024 9:42am atorvastatin 80 mg oral tabl et (20 sources) HMG-CoA Reductase Inhibitor Start: 08-14-2024 End: 11-12-2024 Start: 08-09-2024 End: 08-15-2024 Start: 08-03-2024 End: 08-09-2024 Start: 07-03-2024 Start: 11-25-2022 End: 11-28-2023 take 1 tablet [...] days. donepezil hydrochloride 5 mg oral tablet (8 sources) Start: Start: 09-05-2024 Aricept 5 mg o ral tablet Dose : 5 mg = 1 tab(s), Oral, qHS, 0 Refill(s) Start Date: 09/05/24 Status: Ordered Repeat number: 1 glimepiride 2 mg oral tablet (20 sources) Sulfonylurea Start: 08-14-2024 End: 11-12-2024 Start: 07-07-2022 End: 08-14-2024 Comment on above: Take 1 tablet by [...] 08-05-2024 End: 08-09-2024 Start: 07-03-2024 End: 08-14-2024 Start: 05-30-2023 End: 11-27-2024 take 1 tablet [...] release oral tablet (20 sources) Biguanide Start: 09-05-2024 metFORMIN 500 mg oral tablet (IR) Dose : 500 mg = 1 tab(s), PEG, BID, 0 Refill(s) Start Date: 09/05/24 Status: Ordered Repeat number: 1 Start: 07-03-2024 End: 10-02-2024 Start: 07-03-2024 End: 10-02-2024 Metformin 500 mg [...] disease, unspecified CKD stage, unspecified whether long chain quiller tender insulin use (HCC) , Type 2 diabetes [...] WITH BREAKFAST methylPREDNISolone (1 source) Corticosteroid Start: 09-29-19 End: 10-05-19 methylPREDNISolone (MEDROL, KIKE,) 4 mg Dose-Pack Follow dosing instructions, take with food. 21 tablet 0 09/29/2023 10/05/2023 Active metoprolol tartrate 50 mg oral tablet (20 sources) beta-Adrenergic Shea Start: 10-03-19 End: 10-03-19 Start: 10-02-2024 End: 10-02-2024 take 1 tablet [...] Sig (Original) amoxicillin 500 mg oral capsule (8 sources) Penicillin-class Antibacterial Start: 08-02-2024 End: 10-02-2024 aspirin 81 mg chewable tablet (2 sources) Platelet Aggregation Inhibitor, Nonsteroidal Anti-inflammatory Drug Start: 08-10-2024 End: 08-11-2024 Start: 08-06-2024 End: 08-09-2024 atenolol 50 mg oral tablet (20 sources) beta-Adrenergic Shea Start: 07-03-2024 End: 10-02-2024 Start: 11-25-2022 End: 11-28-2023 take 1 tablet [...] mouthwash (20 sources) Start: 2021 End: 2024 Comment on above: Use 15 mL as [...] needed doxycycline hyclate 100 mg oral capsule (12 sources) Tetracycline-class Drug Start: 2024 End: 2024 Start: 07-01-2024 End: 07-31-2024 take 1 capsule [...] kidney disease, unspecified CKD stage, unspecified whether senior care insulin use (HCC) Take 1 tablet by [...] End: 08-15-2024 Start: 08-08-2024 End: 08-09-2024 methylphenidate hydrochlorid e 5 mg oral tablet (20 sources) Central Nervous System Stimulant Start: 09-12-2024 End: 12-07-2024 Start: 09-09-2024 End: 11-07-2024 200 ml niCARdipine hydrochloride 0.2 mg/ml injection (1 source) Dihydropyridine Calcium Channel Shea Start: 08-03-2024 End: 08-04-2024 2 ml ondansetron 2 mg/ml injection (2 sources) Serotonin-3 Receptor Antagonist Start: 08-03-2024 End: 08-15-2024 take 4 mg intravenously every four hours as needed Start: 08-03-2024 End: 08-03-2024 24 hr oxybutynin chloride 5 mg extended release oral tablet (19 sources) Cholinergic Muscarinic Antagonist Start: 05-31-2024 End: 10-02-2024 End: 08-06-2024 penicillin v potassium 500 m [...] (20 sources) Angiotensin Converting Enzyme Inhibitor Start: 11-25-2022 End: 08-02-2024 Start: 11-30-2020 End: 01-11-2022 take 2 capsules [...] capsules by m outh once daily sennosides, group home 8.6 mg oral tablet (2 sources) Start: 08-09-2024 End: 08-15-2024 Start: 08-04-2024 End: 08-09-2024 triamcinolone acetonide 0.99690 mg/mg topical ointment (3 sources) Corticosteroid Start: [...] glucose is greater than 200mg/dl, then notify fun house operator. 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 angina pectoris] Onset: 5 [...] unspecified site] Onset: 5 Chronic Other aftercare (8 sources) 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; Translations: [long term care pharmacist (current) use of anticoagulants] 08-02-2024 Episodic Other aftercare (1 source) USP (current) use of aspirin; Translations: [long term care pharmacist (current) use of aspirin] Onset: Episodic Other aftercare (1 source) long term care pharmacist (current) use of anticoagulants; Translations: [long term care pharmacist (current) use of anticoagulants] Onset: 5 Episodic Other aftercare (1 source) long term care pharmacist (current) use of oral hypoglycemic drugs; Translations: [USP (current) use of oral hypoglycemic drugs] Onset: 5 Episodic Other circulatory disease (1 source) Hypotension, unspecified; Translations: [Hypotension, unspecified] Onset: 5 Episodic Other connective tissue disease (1 source) Pain in left arm; Translations: [Pain in left arm] Onset: Episodic Other diseases of bladder and urethra (1 source) Overactive bladder; Translations: [Overactive bladder] Onset: Chronic Other diseases of kidney and ureters (10 sources) Kidney disease; Translations: [Disorder of kidney and ureter, unspecified] Onset: 5 07-03-2024 Episodic Other diseases of kidney and ureters (8 sources) Chronic renal insufficiency; Translations: [Disorder of kidney and ureter, unspecified] 08-02-2024 Episodic Other eye disorders (8 sources) H/O: Bilateral cataract extraction; Translations: [Cataract [...] cutis] Onset: Episodic Other upper respiratory infections (8 sources) Upper respiratory infection; Translations: [Acute upper [...] Onset: 5 Unclassified (2 sources) CVA Onset: Urinary tract [...] lymphocyte countOrd ered By: Safia Ruelas on 12-24-2024 Lymphocytes Auto (Unsp spec) [#/Vol] 2.54 10*3/uL 0.83-4.51 [facility] Anion gap in Serum or Plasma Ordered By: Safia Ruelas on 12-24-2024 Anion gap [Moles/Vol] 14 mmol/L 5-15 [facility] Automated lymphocyte count a s percentage of total leukocytesOrdered By: Safia Ruelas on 12-24-2024 Lymphocytes/100 WBC Auto (Unsp spec) 28.0 % 19-41 [facility] BUN/creatinine ratioOrdered By: Safia Ruelas on 12-24-2024 Urea nitrogen/Creatinine [Mass ratio] 18.4 mg/mg 10-20 [facility] Basophil percentageOrdered B y: Safia Ruelas on 12-24-2024 Basophils/100 WBC (Bld) 0.8 % 0-1 [facility] Carbon dioxide, total [Moles /volume] in Central venous bloodOrdered By: Safia Ruelas on 12-24-2024 CO2 [Moles/Vol] 22.1 mmol/L 21.0-32.0 [facility] Chloride assayOrdered By: Balbir Ruelas on 12-24-2024 Chloride [Moles/Vol] 101 mmol/L 98-108 [facility] Eosinophil percentageOrdered By: Safia Ruelas on 12-24-2024 Eosinophils/100 WBC (Bld) 2.6 % 0-5 [facility] Erythrocyte distribution wid th ratioOrdered By: Safia Ruelas on 12-24-2024 Erythrocyte distribution width (RBC) [Ratio] 14.4 % 11.6-14.6 [facility] Erythrocyte distribution wid th standard deviationOrdered By: Safia Ruelas on 12-24-2024 Erythrocyte distribution width (RBC) [Ratio] 48.8 fl High 35.1-43.9 [facility] Glomerular filtration rate ( GFR) estimation/1.73 sq m using serum, plasma, or whole bOrdered By: Safia Ruelas on 12-24-2024 GFR/1.73 sq M.predicted among non-blacks MDRD (S/P/Bld) [Vol rate/Area] 83 mL/min/{1.73_m2} >60 [facility] Hematocrit Auto (Bld) [Volum e fraction]Ordered By: jean marietoms riverskye Ruelas on 12-24-2024 Hematocrit (Bld) [Volume fraction] 37.9 % 37-47 [facility] Hemoglobin measurementOrdere d By: Safia Ruelas on 12-24-2024 Hemoglobin (Bld) [Mass/Vol] 12.2 g/dL 12.0-15.0 [facility] Immature granulocytes/100 WB C Auto (Bld)Ordered By: Safia Ruelas on 12-24-2024 Immature granulocytes/100 WBC (Bld) 0.400 % 0.0-0.9 [facility] MCV (mean corpuscular volume ) determinationOrdered By: Safia Ruelas on 12-24-2024 MCV (RBC) [Entitic vol] 92.2 fL 81-99 [facility] Mean corpuscular hemoglobin (MCH) determinationOrdered By: jean marietoms riverskye Ruelas on 12-24-2024 MCH (RBC) [Entitic mass] 29.7 pg 27.0-32.0 [facility] Monocyte percentageOrdered B y: Safia Ruelas on 12-24-2024 Monocytes/100 WBC (Bld) 8.7 % 0-10 [facility] Neutrophil percentageOrdered By: Safia Ruelas on 12-24-2024 Neutrophils/100 WBC (Bld) 59.5 % 47-70 [facility] Platelet countOrdered By: Balbir Ruelas on 12-24-2024 Platelets (Bld) [#/Vol] 256 10*3/uL 150-450 [facility] Potassium measurement (mass/ volume)Ordered By: Safia Ruelas on 12-24-2024 Potassium (Unsp spec) [Mass/Vol] 3.4 mmol/L 3.3-5.1 [facility] RBC Auto (Bld) [#/Vol]Ordere d By: Safia Ruelas on 12-24-2024 RBC (Bld) [#/Vol] 4.11 10*6/uL Low 4.2-5.4 [facility] Serum creatinine measurement (mass/volume)Ordered By: Safia Cheoquyen on 12-24-2024 Creatinine [Mass/Vol] 0.73 mg/dL 0.70-1.20 [facility] Serum glucose measurement (m ass/volume)Ordered By: Safia Cheoqyuen on 12-24-2024 Glucose [Mass/Vol] 142 mg/dL High 70-99 [facility] Serum or plasma calcium dayna urement (mass/volume)Ordered By: Safia Ruelas on 12-24-2024 Calcium [Mass/Vol] 9.1 mg/dL 7.6-11.0 [facility] Serum or plasma urea nitroge n measurement (mass/volume)Ordered By: Safia Ruelas on 12-24-2024 Urea nitrogen [Mass/Vol] 13 mg/dL 4-19 [facility] Sodium levelOrdered By: Leonides Westonmelanie on 12-24-2024 Sodium [Moles/Vol] 137 mmol/L 133-145 [facility] White blood cell (WBC) count Ordered By: Safia Ruelas on 12-24-2024 WBC (Bld) [#/Vol] 9.1 10*3/uL 4.4-11.0 [facility] Absolute lymphocyte countOrd ered By: Safia Cheobonimelanie on 12-17-2024 Lymphocytes Auto (Unsp spec) [#/Vol] 2.94 10*3/uL 0.83-4.51 [facility] Anion gap in Serum or Plasma Ordered By: Safia Ruelas on 12-17-2024 Anion gap [Moles/Vol] 15 mmol/L 5-15 [facility] Automated lymphocyte count a s percentage of total leukocytesOrdered By: Safia Ruelas on 12-17-2024 Lymphocytes/100 WBC Auto (Unsp spec) 30.5 % 19-41 [facility] BUN/creatinine ratioOrdered By: Safia Ruelas on 12-17-2024 Urea nitrogen/Creatinine [Mass ratio] 23.4 mg/mg High 10-20 [facility] Basophil percentageOrdered B y: Safia Ruelas on 12-17-2024 Basophils/100 WBC (Bld) 0.7 % 0-1 [facility] Carbon dioxide, total [Moles /volume] in Central venous bloodOrdered By: Safia Ruelas on 12-17-2024 CO2 [Moles/Vol] 22.1 mmol/L 21.0-32.0 [facility] Chloride assayOrdered By: Balbir Ruelas on 12-17-2024 Chloride [Moles/Vol] 102 mmol/L 98-108 [facility] Eosinophil percentageOrdered By: Safia Ruelas on 12-17-2024 Eosinophils/100 WBC (Bld) 2.3 % 0-5 [facility] Erythrocyte distribution wid th ratioOrdered By: Safia Ruelas on 12-17-2024 Erythrocyte distribution width (RBC) [Ratio] 14.1 % 11.6-14.6 [facility] Erythrocyte distribution wid th standard deviationOrdered By: Safia Ruelas on 12-17-2024 Erythrocyte distribution width (RBC) [Ratio] 47.3 fl High 35.1-43.9 [facility] Glomerular filtration rate ( GFR) estimation/1.73 sq m using serum, plasma, or whole bOrdered By: Safia Ruelas on 12-17-2024 GFR/1.73 sq M.predicted among non-blacks MDRD (S/P/Bld) [Vol rate/Area] 77 mL/min/{1.73_m2} >60 [facility] Hematocrit Auto (Bld) [Volum e fraction]Ordered By: Safia Ruelas on 12-17-2024 Hematocrit (Bld) [Volume fraction] 40.2 % 37-47 [facility] Hemoglobin measurementOrdere d By: Safia Ruelas on 12-17-2024 Hemoglobin (Bld) [Mass/Vol] 12.7 g/dL 12.0-15.0 [facility] Immature granulocytes/100 WB C Auto (Bld)Ordered By: Safia Ruelas on 12-17-2024 Immature granulocytes/100 WBC (Bld) 0.400 % 0.0-0.9 [facility] MCV (mean corpuscular volume ) determinationOrdered By: Safia Ruelas on 12-17-2024 MCV (RBC) [Entitic vol] 92.2 fL 81-99 [facility] Mean corpuscular hemoglobin (MCH) determinationOrdered By: Safia Ruelas on 12-17-2024 MCH (RBC) [Entitic mass] 29.1 pg 27.0-32.0 [facility] Monocyte percentageOrdered B y: Safia Ruelas on 12-17-2024 Monocytes/100 WBC (Bld) 8.6 % 0-10 [facility] Neutrophil percentageOrdered By: sherry Ruelas on 12-17-2024 Neutrophils/100 WBC (Bld) 57.5 % 47-70 [facility] Platelet countOrdered By: Balbir jean mariejosé antonio Ruelas on 12-17-2024 Platelets (Bld) [#/Vol] 287 10*3/uL 150-450 [facility] Potassium measurement (mass/ volume)Ordered By: Safia Ruelas on 12-17-2024 Potassium (Unsp spec) [Mass/Vol] 3.5 mmol/L 3.3-5.1 [facility] RBC Auto (Bld) [#/Vol]Ordere d By: Safia Ruelas on 12-17-2024 RBC (Bld) [#/Vol] 4.36 10*6/uL 4.2-5.4 [facility] Serum creatinine measurement (mass/volume)Ordered By: Safia Ruelas on 12-17-2024 Creatinine [Mass/Vol] 0.78 mg/dL 0.70-1.20 [facility] Serum glucose measurement (m ass/volume)Ordered By: Balbirjean mariedesireeskye Griderbonimelanie on 12-17-2024 Glucose [Mass/Vol] 125 mg/dL High 70-99 [facility] Serum or plasma calcium dayna urement (mass/volume)Ordered By: Safia Griderbonimelanie on 12-17-2024 Calcium [Mass/Vol] 9.2 mg/dL 7.6-11.0 [facility] Serum or plasma urea nitroge n measurement (mass/volume)Ordered By: Safia Grdierbonimelanie on 12-17-2024 Urea nitrogen [Mass/Vol] 18 mg/dL 4-19 [facility] Sodium levelOrdered By: Balbirjean marie josé antonio Cheobonimelanie on 12-17-2024 Sodium [Moles/Vol] 139 mmol/L 133-145 [facility] White blood cell (WBC) count Ordered By: Safia Ruelas on 12-17-2024 WBC (Bld) [#/Vol] 9.6 10*3/uL 4.4-11.0 [facility] Absolute lymphocyte countOrd ered By: Safia Ruelas on 12-10-2024 Lymphocytes Auto (Unsp spec) [#/Vol] 2.59 10*3/uL 0.83-4.51 [facility] Anion gap in Serum or Plasma Ordered By: Safia Ruelas on 12-10-2024 Anion gap [Moles/Vol] 15 mmol/L 5-15 [facility] Automated lymphocyte count a s percentage of total leukocytesOrdered By: Safia Ruelas on 12-10-2024 Lymphocytes/100 WBC Auto (Unsp spec) 30.2 % 19-41 [facility] BUN/creatinine ratioOrdered By: Balbirsherry Griderbonimelanie on 12-10-2024 Urea nitrogen/Creatinine [Mass ratio] 25.6 mg/mg High 10-20 [facility] Basophil percentageOrdered B y: Leonidesdesireeskye Ruelas on 12-10-2024 Basophils/100 WBC (Bld) 0.9 % 0-1 [facility] Carbon dioxide, total [Moles /volume] in Central venous bloodOrdered By: Safia Ruelas on 12-10-2024 CO2 [Moles/Vol] 21.7 mmol/L 21.0-32.0 [facility] Chloride assayOrdered By: Balbir Ruelas on 12-10-2024 Chloride [Moles/Vol] 101 mmol/L 98-108 [facility] Eosinophil percentageOrdered By: Safia Ruelas on 12-10-2024 Eosinophils/100 WBC (Bld) 1.9 % 0-5 [facility] Erythrocyte distribution wid th ratioOrdered By: jean marietoms riverskye Ruelas on 12-10-2024 Erythrocyte distribution width (RBC) [Ratio] 13.7 % 11.6-14.6 [facility] Erythrocyte distribution wid th standard deviationOrdered By: Leonidestoms riverskye Ruelas on 12-10-2024 Erythrocyte distribution width (RBC) [Ratio] 46.8 fl High 35.1-43.9 [facility] Glomerular filtration rate ( GFR) estimation/1.73 sq m using serum, plasma, or whole bOrdered By: Safia Ruelas on 12-10-2024 GFR/1.73 sq M.predicted among non-blacks MDRD (S/P/Bld) [Vol rate/Area] 72 mL/min/{1.73_m2} >60 [facility] Hematocrit Auto (Bld) [Volum e fraction]Ordered By: Safia Ruelas 12-10-2024 Hematocrit (Bld) [Volume fraction] 38.8 % 37-47 [facility] Hemoglobin measurementOrdere d By: Safia Ruelas on 12-10-2024 Hemoglobin (Bld) [Mass/Vol] 12.3 g/dL 12.0-15.0 [facility] Immature granulocytes/100 WB C Auto (Bld)Ordered By: Safia Ruelas 12-10-2024 Immature granulocytes/100 WBC (Bld) 0.500 % 0.0-0.9 [facility] MCV (mean corpuscular volume ) determinationOrdered By: Safia Ruelas 12-10-2024 MCV (RBC) [Entitic vol] 93.3 fL 81-99 [facility] Mean corpuscular hemoglobin (MCH) determinationOrdered By: Safia Ruelas on 12-10-2024 MCH (RBC) [Entitic mass] 29.6 pg 27.0-32.0 [facility] Monocyte percentageOrdered B y: Safia Ruelas on 12-10-2024 Monocytes/100 WBC (Bld) 8.2 % 0-10 [facility] [facility] Neutrophil percentageOrdered By: Safia Ruelas on 12-10-2024 Neutrophils/100 WBC (Bld) 58.3 % 47-70 [facility] Platelet countOrdered By: Balbir Ruelas on 12-10-2024 Platelets (Bld) [#/Vol] 247 10*3/uL 150-450 [facility] Potassium measurement (mass/ volume)Ordered By: Safia Ruelas on 12-10-2024 Potassium (Unsp spec) [Mass/Vol] 3.8 mmol/L 3.3-5.1 [facility] RBC Auto (Bld) [#/Vol]Ordere d By: Safia Ruelas on 12-10-2024 RBC (Bld) [#/Vol] 4.16 10*6/uL Low 4.2-5.4 [facility] Serum creatinine measurement (mass/volume)Ordered By: Safia Ruelas on 12-10-2024 Creatinine [Mass/Vol] 0.82 mg/dL 0.70-1.20 [facility] Serum glucose measurement (m ass/volume)Ordered By: Safia Ruelas on 12-10-2024 Glucose [Mass/Vol] 149 mg/dL High 70-99 [facility] Serum or plasma calcium dayna urement (mass/volume)Ordered By: Safia Ruelas on 12-10-2024 Calcium [Mass/Vol] 9.1 mg/dL 7.6-11.0 [facility] Serum or plasma urea nitroge n measurement (mass/volume)Ordered By: Safia Ruelas 12-10-2024 Urea nitrogen [Mass/Vol] 21 mg/dL High 4-19 [facility] Sodium levelOrdered By: Leonides Ruelas on 12-10-2024 Sodium [Moles/Vol] 137 mmol/L 133-145 [facility] White blood cell (WBC) count Ordered By: Safia Ruelas on 12-10-2024 WBC (Bld) [#/Vol] 8.6 10*3/uL 4.4-11.0 [facility] Absolute lymphocyte countOrd ered By: Safia Ruelas on 12-03-2024 Lymphocytes Auto (Unsp spec) [#/Vol] 2.81 10*3/uL 0.83-4.51 [facility] Anion gap in Serum or Plasma Ordered By: Safia Ruelas on 12-03-2024 Anion gap [Moles/Vol] 14 mmol/L 5-15 [facility] Automated lymphocyte count a s percentage of total leukocytesOrdered By: Safia Ruelas on 12-03-2024 Lymphocytes/100 WBC Auto (Unsp spec) 28.3 % 19-41 [facility] BUN/creatinine ratioOrdered By: Safia Ruelas on 12-03-2024 Urea nitrogen/Creatinine [Mass ratio] 28.4 mg/mg High 10-20 [facility] Basophil percentageOrdered B y: Safia Ruelas on 12-03-2024 Basophils/100 WBC (Bld) 0.6 % 0-1 [facility] Carbon dioxide, total [Moles /volume] in Central venous bloodOrdered By: Safia Ruelas on 12-03-2024 CO2 [Moles/Vol] 23.3 mmol/L 21.0-32.0 [facility] Chloride assayOrdered By: sherry Ruelas on 12-03-2024 Chloride [Moles/Vol] 102 mmol/L 98-108 [facility] Eosinophil percentageOrdered By: Safia Ruelas on 12-03-2024 Eosinophils/100 WBC (Bld) 1.5 % 0-5 [facility] Erythrocyte distribution wid th ratioOrdered By: Safia Ruelas on 12-03-2024 Erythrocyte distribution width (RBC) [Ratio] 14.1 % 11.6-14.6 [facility] Erythrocyte distribution wid th standard deviationOrdered By: Safia Ruelas on 12-03-2024 Erythrocyte distribution width (RBC) [Ratio] 47.9 fl High 35.1-43.9 [facility] Glomerular filtration rate ( GFR) estimation/1.73 sq m using serum, plasma, or whole bOrdered By: Safia Ruelas on 12-03-2024 GFR/1.73 sq M.predicted among non-blacks MDRD (S/P/Bld) [Vol rate/Area] 65 mL/min/{1.73_m2} >60 [facility] Hematocrit Auto (Bld) [Volum e fraction]Ordered By: Safia Ruelas on 12-03-2024 Hematocrit (Bld) [Volume fraction] 40.0 % 37-47 [facility] Hemoglobin measurementOrdere d By: Safia Ruelas on 12-03-2024 Hemoglobin (Bld) [Mass/Vol] 12.9 g/dL 12.0-15.0 [facility] Immature granulocytes/100 WB C Auto (Bld)Ordered By: Safia Ruelas on 12-03-2024 Immature granulocytes/100 WBC (Bld) 0.300 % 0.0-0.9 [facility] MCV (mean corpuscular volume ) determinationOrdered By: Safia Ruelas on 12-03-2024 MCV (RBC) [Entitic vol] 91.3 fL 81-99 [facility] Mean corpuscular hemoglobin (MCH) determinationOrdered By: Safia Ruelas on 12-03-2024 MCH (RBC) [Entitic mass] 29.5 pg 27.0-32.0 [facility] Monocyte percentageOrdered B y: Safia Ruelas on 12-03-2024 Monocytes/100 WBC (Bld) 9.6 % 0-10 [facility] Neutrophil percentageOrdered By: Safia Ruelas on 12-03-2024 Neutrophils/100 WBC (Bld) 59.7 % 47-70 [facility] Platelet countOrdered By: Balbir Ruelas on 12-03-2024 Platelets (Bld) [#/Vol] 280 10*3/uL 150-450 [facility] Potassium measurement (mass/ volume)Ordered By: Safia Ruelas on 12-03-2024 Potassium (Unsp spec) [Mass/Vol] 4.0 mmol/L 3.3-5.1 [facility] RBC Auto (Bld) [#/Vol]Ordere d By: Safia Ruelas on 12-03-2024 RBC (Bld) [#/Vol] 4.38 10*6/uL 4.2-5.4 [facility] Serum creatinine measurement (mass/volume)Ordered By: Safia Ruelas on 12-03-2024 Creatinine [Mass/Vol] 0.89 mg/dL 0.70-1.20 [facility] Serum glucose measurement (m ass/volume)Ordered By: Safia Ruelas on 12-03-2024 Glucose [Mass/Vol] 77 mg/dL 70-99 [facility] Serum or plasma calcium dayna urement (mass/volume)Ordered By: Safia Ruelas on 12-03-2024 Calcium [Mass/Vol] 9.6 mg/dL 7.6-11.0 [facility] Serum or plasma urea nitroge n measurement (mass/volume)Ordered By: Safia Ruelas on 12-03-2024 Urea nitrogen [Mass/Vol] 25 mg/dL High 4-19 [facility] Sodium levelOrdered By: Leonides jiménezradha Jessenia on 12-03-2024 Sodium [Moles/Vol] 139 mmol/L 133-145 [facility] TSH DL <= 0.005 mIU/L QnOrde red By: Safia Ruelas on 12-03-2024 TSH Qn 3.500 uIU/mL 0.300-4.200 [facility] White blood cell (WBC) count Ordered By: Safia Ruelas on 12-03-2024 WBC (Bld) [#/Vol] 9.9 10*3/uL 4.4-11.0 [facility] Absolute lymphocyte countOrd ered By: Safia Ruelas on 11-26-2024 Lymphocytes Auto (Unsp spec) [#/Vol] 2.99 10*3/uL 0.83-4.51 [facility] Absolute neutrophil countOrd ered By: Safia Ruelas on 11-26-2024 Neutrophils (Bld) [#/Vol] 4.2 10*3/uL 2.0-7.7 [facility] Anion gap in Serum or Plasma Ordered By: Safia Ruelas on 11-26-2024 Anion gap [Moles/Vol] 13 mmol/L 5-15 [facility] Automated lymphocyte count a s percentage of total leukocytesOrdered By: Safia Ruelas on 11-26-2024 Lymphocytes/100 WBC Auto (Unsp spec) 37.1 % 19-41 [facility] BUN/creatinine ratioOrdered By: Safia Ruelas on 11-26-2024 Urea nitrogen/Creatinine [Mass ratio] 24.3 mg/mg High 10-20 [facility] Basophil percentageOrdered B y: Safia Ruelas on 11-26-2024 Basophils/100 WBC (Bld) 0.7 % 0-1 [facility] Carbon dioxide, total [Moles /volume] in Central venous bloodOrdered By: Safia Ruelas on 11-26-2024 CO2 [Moles/Vol] 27.1 mmol/L 21.0-32.0 [facility] Chloride assayOrdered By: Balbir Ruelas on 11-26-2024 Chloride [Moles/Vol] 101 mmol/L 98-108 [facility] Eosinophil percentageOrdered By: Safia Ruelas on 11-26-2024 Eosinophils/100 WBC (Bld) 1.9 % 0-5 [facility] Erythrocyte distribution wid th ratioOrdered By: sherry Ruelas on 11-26-2024 Erythrocyte distribution width (RBC) [Ratio] 14.2 % 11.6-14.6 [facility] Erythrocyte distribution wid th standard deviationOrdered By: jean marietoms riverskye Ruelas on 11-26-2024 Erythrocyte distribution width (RBC) [Ratio] 48.0 fl High 35.1-43.9 [facility] Glomerular filtration rate ( GFR) estimation/1.73 sq m using serum, plasma, or whole bOrdered By: Safia Ruelas on 11-26-2024 GFR/1.73 sq M.predicted among non-blacks MDRD (S/P/Bld) [Vol rate/Area] 63 mL/min/{1.73_m2} >60 [facility] Comment on above: mL/min/1.73m2 CKD-EP I Creatinine Equation (2020) Hematocrit Auto (Bld) [Volum e fraction]Ordered By: Balbirjean marietoms riverskye Ruelas on 11-26-2024 Hematocrit (Bld) [Volume fraction] 42.7 % 37-47 [facility] Hemoglobin measurementOrdere d By: jean marietoms riverskye Griderbonimelanie on 11-26-2024 Hemoglobin (Bld) [Mass/Vol] 13.6 g/dL 12.0-15.0 [facility] Immature granulocytes/100 WB C Auto (Bld)Ordered By: jean marietoms riverskye Griderbonimelanie on 11-26-2024 Immature granulocytes/100 WBC (Bld) 0.500 % 0.0-0.9 [facility] Comment on above: IG% - Immature Granu locytes (promyelocytes, myelocytes and metamyelocytes) > 1% indicates that a LEFT SHIFT is Present. MCV (mean corpuscular volume ) determinationOrdered By: Balbirjean marietoms riverskye Ruelas on 11-26-2024 MCV (RBC) [Entitic vol] 92.0 fL 81-99 [facility] Mean corpuscular hemoglobin (MCH) determinationOrdered By: [facility] Gridermelanie on 11-26-2024 MCH (RBC) [Entitic mass] 29.3 pg 27.0-32.0 [facility] Mean corpuscular hemoglobin concentration (MCHC) determinationOrdered By: jean marietoms riverskye Griderbonimelanie on 11-26-2024 MCHC (RBC) [Mass/Vol] 31.9 g/dL Low 32-36 [facility] Mean platelet volume determi nationOrdered By: jean marietoms riverskye Griderbonimelanie on 11-26-2024 Platelet mean volume (Bld) [Entitic vol] 11.5 fL 6.2-12.0 [facility] Monocyte percentageOrdered B y: Leonidesjosé antonio Griderbonimelanie on 11-26-2024 Monocytes/100 WBC (Bld) 7.7 % 0-10 [facility] Neutrophil percentageOrdered By: Safia Ruelas on 11-26-2024 Neutrophils/100 WBC (Bld) 52.1 % 47-70 [facility] Nucleated red blood cell per centageOrdered By: Safia Ruelas on 11-26-2024 Nucleated RBC/100 WBC (Bld) [Ratio] 0 % 0-5 [facility] Platelet countOrdered By: Balbir Ruelas on 11-26-2024 Platelets (Bld) [#/Vol] 283 10*3/uL 150-450 [facility] Potassium measurement (mass/ volume)Ordered By: Safia Ruelas on 11-26-2024 Potassium (Unsp spec) [Mass/Vol] 3.8 mmol/L 3.3-5.1 [facility] RBC Auto (Bld) [#/Vol]Ordere d By: Safia Ruelas on 11-26-2024 RBC (Bld) [#/Vol] 4.64 10*6/uL 4.2-5.4 [facility] Serum creatinine measurement (mass/volume)Ordered By: Safia Ruelas on 11-26-2024 Creatinine [Mass/Vol] 0.92 mg/dL 0.70-1.20 [facility] Serum glucose measurement (m ass/volume)Ordered By: Safia Ruelas on 11-26-2024 Glucose [Mass/Vol] 97 mg/dL 70-99 [facility] Serum or plasma calcium dayna urement (mass/volume)Ordered By: Safia Ruelas on 11-26-2024 Calcium [Mass/Vol] 10.0 mg/dL 7.6-11.0 [facility] Serum or plasma urea nitroge n measurement (mass/volume)Ordered By: Safia Ruelas on 11-26-2024 Urea nitrogen [Mass/Vol] 22 mg/dL High 4-19 [facility] Sodium levelOrdered By: Leonides Ruelas on 11-26-2024 Sodium [Moles/Vol] 140 mmol/L 133-145 [facility] White blood cell (WBC) count Ordered By: Safia Rueals on 11-26-2024 WBC (Bld) [#/Vol] 8.1 10*3/uL 4.4-11.0 [facility] Clostridium difficile detect ion by polymerase chain reactionOrdered By: Safia Ruelas on 11-25-2024 C. difficile DNA CHUCKY+probe Ql (Unsp spec) [facility] Absolute lymphocyte countOrd ered By: sherry Ruelas on 11-19-2024 Lymphocytes Auto (Unsp spec) [#/Vol] 2.71 10*3/uL 0.83-4.51 [facility] Absolute neutrophil countOrd ered By: sherry Ruelas on 11-19-2024 Neutrophils (Bld) [#/Vol] 5.2 10*3/uL 2.0-7.7 [facility] Anion gap in Serum or Plasma Ordered By: Safia Ruelas on 11-19-2024 Anion gap [Moles/Vol] 12 mmol/L 5-15 [facility] Automated lymphocyte count a s percentage of total leukocytesOrdered By: Safia Ruelas on 11-19-2024 Lymphocytes/100 WBC Auto (Unsp spec) 30.4 % 19-41 [facility] BUN/creatinine ratioOrdered By: Safia Ruelas on 11-19-2024 Urea nitrogen/Creatinine [Mass ratio] 25.0 mg/mg High 10-20 [facility] Basophil percentageOrdered B y: Safia Ruelas on 11-19-2024 Basophils/100 WBC (Bld) 0.6 % 0-1 [facility] Carbon dioxide, total [Moles /volume] in Central venous bloodOrdered By: Safia Ruelas on 11-19-2024 CO2 [Moles/Vol] 25.5 mmol/L 21.0-32.0 [facility] Chloride assayOrdered By: Balbir Ruelas on 11-19-2024 Chloride [Moles/Vol] 101 mmol/L 98-108 [facility] Eosinophil percentageOrdered By: Safia Ruelas on 11-19-2024 Eosinophils/100 WBC (Bld) 2.1 % 0-5 [facility] Erythrocyte distribution wid th ratioOrdered By: Safia Ruelas on 11-19-2024 Erythrocyte distribution width (RBC) [Ratio] 13.9 % 11.6-14.6 [facility] Erythrocyte distribution wid th standard deviationOrdered By: Safia Ruelas on 11-19-2024 Erythrocyte distribution width (RBC) [Ratio] 46.6 fl High 35.1-43.9 [facility] Glomerular filtration rate ( GFR) estimation/1.73 sq m using serum, plasma, or whole bOrdered By: Safia Ruelas on 11-19-2024 GFR/1.73 sq M.predicted among non-blacks MDRD (S/P/Bld) [Vol rate/Area] 66 mL/min/{1.73_m2} >60 [facility] Comment on above: mL/min/1.73m2 CKD-EP I Creatinine Equation (2020) Hematocrit Auto (Bld) [Volum e fraction]Ordered By: Leonidestoms riverskye Ruelas on 11-19-2024 Hematocrit (Bld) [Volume fraction] 39.2 % 37-47 [facility] Hemoglobin measurementOrdere d By: Safia Ruelas on 11-19-2024 Hemoglobin (Bld) [Mass/Vol] 12.7 g/dL 12.0-15.0 [facility] Immature granulocytes/100 WB C Auto (Bld)Ordered By: Safia Ruelas on 11-19-2024 Immature granulocytes/100 WBC (Bld) 0.300 % 0.0-0.9 [facility] Comment on above: IG% - Immature Granu locytes (promyelocytes, myelocytes and metamyelocytes) > 1% indicates that a LEFT SHIFT is Present. MCV (mean corpuscular volume ) determinationOrdered By: Safia Ruelas on 11-19-2024 MCV (RBC) [Entitic vol] 91.4 fL 81-99 [facility] Mean corpuscular hemoglobin (MCH) determinationOrdered By: Safia Ruelas 11-19-2024 MCH (RBC) [Entitic mass] 29.6 pg 27.0-32.0 [facility] Mean corpuscular hemoglobin concentration (MCHC) determinationOrdered By: Safia Ruelas on 11-19-2024 MCHC (RBC) [Mass/Vol] 32.4 g/dL 32-36 [facility] Mean platelet volume determi nationOrdered By: Safia Ruelas on 11-19-2024 Platelet mean volume (Bld) [Entitic vol] 11.5 fL 6.2-12.0 [facility] Monocyte percentageOrdered B y: Safia Ruelas on 11-19-2024 Monocytes/100 WBC (Bld) 7.8 % 0-10 [facility] Neutrophil percentageOrdered By: Safia Ruelas on 11-19-2024 Neutrophils/100 WBC (Bld) 58.8 % 47-70 [facility] Nucleated red blood cell per centageOrdered By: Safia Ruelas on 11-19-2024 Nucleated RBC/100 WBC (Bld) [Ratio] 0 % 0-5 [facility] Platelet countOrdered By: Balbir jean mariejosé antonio Ruelas on 11-19-2024 Platelets (Bld) [#/Vol] 300 10*3/uL 150-450 [facility] Potassium measurement (mass/ volume)Ordered By: Safia Ruelas on 11-19-2024 Potassium (Unsp spec) [Mass/Vol] 3.8 mmol/L 3.3-5.1 [facility] RBC Auto (Bld) [#/Vol]Ordere d By: Safia Ruelas on 11-19-2024 RBC (Bld) [#/Vol] 4.29 10*6/uL 4.2-5.4 [facility] Serum creatinine measurement (mass/volume)Ordered By: Safia Ruelas on 11-19-2024 Creatinine [Mass/Vol] 0.88 mg/dL 0.70-1.20 [facility] Serum glucose measurement (m ass/volume)Ordered By: Safia Ruelas on 11-19-2024 Glucose [Mass/Vol] 136 mg/dL High 70-99 [facility] Serum or plasma calcium dayna urement (mass/volume)Ordered By: Safia Ruelas on 11-19-2024 Calcium [Mass/Vol] 9.6 mg/dL 7.6-11.0 [facility] Serum or plasma urea nitroge n measurement (mass/volume)Ordered By: Safia Ruelas on 11-19-2024 Urea nitrogen [Mass/Vol] 22 mg/dL High 4-19 [facility] Sodium levelOrdered By: Leonides josé antonio Cheobonimelanie on 11-19-2024 Sodium [Moles/Vol] 139 mmol/L 133-145 [facility] White blood cell (WBC) count Ordered By: Safia Ruelas on 11-19-2024 WBC (Bld) [#/Vol] 8.9 10*3/uL 4.4-11.0 [facility] Absolute lymphocyte countOrd ered By: Safia Ruelas on 11-12-2024 Lymphocytes Auto (Unsp spec) [#/Vol] 2.49 10*3/uL 0.83-4.51 [facility] Absolute neutrophil countOrd ered By: Safia Ruelas on 11-12-2024 Neutrophils (Bld) [#/Vol] 4.2 10*3/uL 2.0-7.7 [facility] Anion gap in Serum or Plasma Ordered By: Safia Ruelas on 11-12-2024 Anion gap [Moles/Vol] 12 mmol/L 5-15 [facility] Automated lymphocyte count a s percentage of total leukocytesOrdered By: Safia Ruelas on 11-12-2024 Lymphocytes/100 WBC Auto (Unsp spec) 31.9 % 19-41 [facility] BUN/creatinine ratioOrdered By: Safia Ruelas on 11-12-2024 Urea nitrogen/Creatinine [Mass ratio] 28.1 mg/mg High 10-20 [facility] Basophil percentageOrdered B y: Safia Ruelas on 11-12-2024 Basophils/100 WBC (Bld) 0.6 % 0-1 [facility] Carbon dioxide, total [Moles /volume] in Central venous bloodOrdered By: Safia Ruelas on 11-12-2024 CO2 [Moles/Vol] 25.1 mmol/L 21.0-32.0 [facility] Chloride assayOrdered By: Balbir Ruelas on 11-12-2024 Chloride [Moles/Vol] 102 mmol/L 98-108 [facility] Eosinophil percentageOrdered By: Safia Ruelas on 11-12-2024 Eosinophils/100 WBC (Bld) 2.8 % 0-5 [facility] Erythrocyte distribution wid th ratioOrdered By: Safia Ruelas on 11-12-2024 Erythrocyte distribution width (RBC) [Ratio] 13.8 % 11.6-14.6 [facility] Erythrocyte distribution wid th standard deviationOrdered By: Safia Ruelas on 11-12-2024 Erythrocyte distribution width (RBC) [Ratio] 46.7 fl High 35.1-43.9 [facility] Glomerular filtration rate ( GFR) estimation/1.73 sq m using serum, plasma, or whole bOrdered By: Safia Ruelas on 11-12-2024 GFR/1.73 sq M.predicted among non-blacks MDRD (S/P/Bld) [Vol rate/Area] 70 mL/min/{1.73_m2} >60 [facility] Comment on above: mL/min/1.73m2 CKD-EP I Creatinine Equation (2020) Hematocrit Auto (Bld) [Volum e fraction]Ordered By: Safia Ruelas on 11-12-2024 Hematocrit (Bld) [Volume fraction] 40.6 % 37-47 [facility] Hemoglobin measurementOrdere d By: Safia Ruelas on 11-12-2024 Hemoglobin (Bld) [Mass/Vol] 13.2 g/dL 12.0-15.0 [facility] Immature granulocytes/100 WB C Auto (Bld)Ordered By: Safia Ruelas on 11-12-2024 Immature granulocytes/100 WBC (Bld) 0.400 % 0.0-0.9 [facility] Comment on above: IG% - Immature Granu locytes (promyelocytes, myelocytes and metamyelocytes) > 1% indicates that a LEFT SHIFT is Present. MCV (mean corpuscular volume ) determinationOrdered By: Safia Ruelas on 11-12-2024 MCV (RBC) [Entitic vol] 92.1 fL 81-99 [facility] Mean corpuscular hemoglobin (MCH) determinationOrdered By: Safia Ruelas on 11-12-2024 MCH (RBC) [Entitic mass] 29.9 pg 27.0-32.0 [facility] Mean corpuscular hemoglobin concentration (MCHC) determinationOrdered By: Safia Ruelas on 11-12-2024 MCHC (RBC) [Mass/Vol] 32.5 g/dL 32-36 [facility] Mean platelet volume determi nationOrdered By: Safia Ruelas on 11-12-2024 Platelet mean volume (Bld) [Entitic vol] 11.7 fL 6.2-12.0 [facility] Monocyte percentageOrdered B y: Safia Ruelas on 11-12-2024 Monocytes/100 WBC (Bld) 10.0 % 0-10 [facility] Neutrophil percentageOrdered By: Safia Ruelas on 11-12-2024 Neutrophils/100 WBC (Bld) 54.3 % 47-70 [facility] Nucleated red blood cell per centageOrdered By: Safia Ruelas on 11-12-2024 Nucleated RBC/100 WBC (Bld) [Ratio] 0 % 0-5 [facility] Platelet countOrdered By: Balbir Ruelas on 11-12-2024 Platelets (Bld) [#/Vol] 304 10*3/uL 150-450 [facility] Potassium measurement (mass/ volume)Ordered By: Safia Ruelas on 11-12-2024 Potassium (Unsp spec) [Mass/Vol] 3.9 mmol/L 3.3-5.1 [facility] RBC Auto (Bld) [#/Vol]Ordere d By: Safia Ruelas on 11-12-2024 RBC (Bld) [#/Vol] 4.41 10*6/uL 4.2-5.4 [facility] Serum creatinine measurement (mass/volume)Ordered By: Safia Ruelas on 11-12-2024 Creatinine [Mass/Vol] 0.84 mg/dL 0.70-1.20 [facility] Serum glucose measurement (m ass/volume)Ordered By: Safia Ruelas on 11-12-2024 Glucose [Mass/Vol] 112 mg/dL High 70-99 [facility] Serum or plasma calcium dayna urement (mass/volume)Ordered By: Balbirjean mariedesireeskye Griderbonimelanie on 11-12-2024 Calcium [Mass/Vol] 9.7 mg/dL 7.6-11.0 [facility] Serum or plasma urea nitroge n measurement (mass/volume)Ordered By: Safia Ruelas on 11-12-2024 Urea nitrogen [Mass/Vol] 24 mg/dL High 4-19 [facility] Sodium levelOrdered By: Leonides chou Cheobonimelanie on 11-12-2024 Sodium [Moles/Vol] 139 mmol/L 133-145 [facility] White blood cell (WBC) count Ordered By: Safia Ruelas on 11-12-2024 WBC (Bld) [#/Vol] 7.8 10*3/uL 4.4-11.0 [facility] Absolute lymphocyte countOrd ered By: Leonidesdesireeskye Griderbonimelanie on 11-05-2024 Lymphocytes Auto (Unsp spec) [#/Vol] 2.91 10*3/uL 0.83-4.51 [facility] Absolute neutrophil countOrd ered By: Balbirjean mariedesireeskye Ruelas on 11-05-2024 Neutrophils (Bld) [#/Vol] 4.6 10*3/uL 2.0-7.7 [facility] Anion gap in Serum or Plasma Ordered By: Safia Ruelas on 11-05-2024 Anion gap [Moles/Vol] 13 mmol/L 5-15 [facility] Automated lymphocyte count a s percentage of total leukocytesOrdered By: Safia Ruelas on 11-05-2024 Lymphocytes/100 WBC Auto (Unsp spec) 33.7 % 19-41 [facility] BUN/creatinine ratioOrdered By: Safia Griderbonimelanie on 11-05-2024 Urea nitrogen/Creatinine [Mass ratio] 23.3 mg/mg High 10-20 [facility] Basophil percentageOrdered B y: Safia Ruelas on 11-05-2024 Basophils/100 WBC (Bld) 0.9 % 0-1 [facility] Carbon dioxide, total [Moles /volume] in Central venous bloodOrdered By: Safia Ruelas on 11-05-2024 CO2 [Moles/Vol] 24.2 mmol/L 21.0-32.0 [facility] Chloride assayOrdered By: Balbir Ruelas on 11-05-2024 Chloride [Moles/Vol] 102 mmol/L 98-108 [facility] Eosinophil percentageOrdered By: Safia Ruelas on 11-05-2024 Eosinophils/100 WBC (Bld) 2.7 % 0-5 [facility] Erythrocyte distribution wid th ratioOrdered By: sherry Ruelas on 11-05-2024 Erythrocyte distribution width (RBC) [Ratio] 13.9 % 11.6-14.6 [facility] Erythrocyte distribution wid th standard deviationOrdered By: jean marietoms riverskye Ruelas on 11-05-2024 Erythrocyte distribution width (RBC) [Ratio] 47.1 fl High 35.1-43.9 [facility] Glomerular filtration rate ( GFR) estimation/1.73 sq m using serum, plasma, or whole bOrdered By: Safia Ruelas on 11-05-2024 GFR/1.73 sq M.predicted among non-blacks MDRD (S/P/Bld) [Vol rate/Area] 62 mL/min/{1.73_m2} >60 [facility] Comment on above: mL/min/1.73m2 CKD-EP I Creatinine Equation (2020) Hematocrit Auto (Bld) [Volum e fraction]Ordered By: Safia Ruelas on 11-05-2024 Hematocrit (Bld) [Volume fraction] 40.7 % 37-47 [facility] Hemoglobin measurementOrdere d By: Safia Ruelas on 11-05-2024 Hemoglobin (Bld) [Mass/Vol] 12.9 g/dL 12.0-15.0 [facility] Immature granulocytes/100 WB C Auto (Bld)Ordered By: Safia Ruelas on 11-05-2024 Immature granulocytes/100 WBC (Bld) 0.500 % 0.0-0.9 [facility] Comment on above: IG% - Immature Granu locytes (promyelocytes, myelocytes and metamyelocytes) > 1% indicates that a LEFT SHIFT is Present. MCV (mean corpuscular volume ) determinationOrdered By: Safia Ruelas on 11-05-2024 MCV (RBC) [Entitic vol] 92.9 fL 81-99 [facility] Mean corpuscular hemoglobin (MCH) determinationOrdered By: Safia Ruelas on 11-05-2024 MCH (RBC) [Entitic mass] 29.5 pg 27.0-32.0 [facility] Mean corpuscular hemoglobin concentration (MCHC) determinationOrdered By: Safia Ruelas on 11-05-2024 MCHC (RBC) [Mass/Vol] 31.7 g/dL Low 32-36 [facility] Mean platelet volume determi nationOrdered By: Safia Ruelas on 11-05-2024 Platelet mean volume (Bld) [Entitic vol] 11.2 fL 6.2-12.0 [facility] Monocyte percentageOrdered B y: Safia Ruelas on 11-05-2024 Monocytes/100 WBC (Bld) 8.6 % 0-10 [facility] Neutrophil percentageOrdered By: Safia Ruelas on 11-05-2024 Neutrophils/100 WBC (Bld) 53.6 % 47-70 [facility] Nucleated red blood cell per centageOrdered By: Safia Ruelas on 11-05-2024 Nucleated RBC/100 WBC (Bld) [Ratio] 0 % 0-5 [facility] Platelet countOrdered By: Balbir Ruelas on 11-05-2024 Platelets (Bld) [#/Vol] 318 10*3/uL 150-450 [facility] Potassium measurement (mass/ volume)Ordered By: Safia Ruelas on 11-05-2024 Potassium (Unsp spec) [Mass/Vol] 4.0 mmol/L 3.3-5.1 [facility] RBC Auto (Bld) [#/Vol]Ordere d By: Safia Ruelas on 11-05-2024 RBC (Bld) [#/Vol] 4.38 10*6/uL 4.2-5.4 [facility] Serum creatinine measurement (mass/volume)Ordered By: Balbirjean mariedesireeskye Griderbonimelanie on 11-05-2024 Creatinine [Mass/Vol] 0.93 mg/dL 0.70-1.20 [facility] Serum glucose measurement (m ass/volume)Ordered By: Balbirjean mariedesireeskye Griderbonimelanie on 11-05-2024 Glucose [Mass/Vol] 70 mg/dL 70-99 [facility] Serum or plasma calcium dayna urement (mass/volume)Ordered By: Balbirjean mariedesireeskye Griderbonimelanie on 11-05-2024 Calcium [Mass/Vol] 9.5 mg/dL 7.6-11.0 [facility] Serum or plasma urea nitroge n measurement (mass/volume)Ordered By: Balbirjean mariedesireeskye Griderbonimelanie on 11-05-2024 Urea nitrogen [Mass/Vol] 22 mg/dL High 4-19 [facility] Sodium levelOrdered By: Leonides chou Cheobonimelanie on 11-05-2024 Sodium [Moles/Vol] 139 mmol/L 133-145 [facility] White blood cell (WBC) count Ordered By: Balbirjean mariejosé antonio Cheobonimelanie on 11-05-2024 WBC (Bld) [#/Vol] 8.6 10*3/uL 4.4-11.0 [facility] Absolute lymphocyte countOrd ered By: Balbirjean mariedesireeskye Griderbonimelanie on 10-29-2024 Lymphocytes Auto (Unsp spec) [#/Vol] 2.69 10*3/uL 0.83-4.51 [facility] Absolute neutrophil countOrd ered By: Safia Ruelas on 10-29-2024 Neutrophils (Bld) [#/Vol] 4.5 10*3/uL 2.0-7.7 [facility] Anion gap in Serum or Plasma Ordered By: Safia Ruelas on 10-29-2024 Anion gap [Moles/Vol] 11 mmol/L 5-15 [facility] Automated lymphocyte count a s percentage of total leukocytesOrdered By: Balbirsherry Griderbonimelanie on 10-29-2024 Lymphocytes/100 WBC Auto (Unsp spec) 32.6 % 19-41 [facility] BUN/creatinine ratioOrdered By: Safia Ruelas on 10-29-2024 Urea nitrogen/Creatinine [Mass ratio] 25.2 mg/mg High 10-20 [facility] Basophil percentageOrdered B y: Safia Ruelas on 10-29-2024 Basophils/100 WBC (Bld) 0.7 % 0-1 [facility] Carbon dioxide, total [Moles /volume] in Central venous bloodOrdered By: Safia Ruelas on 10-29-2024 CO2 [Moles/Vol] 25.7 mmol/L 21.0-32.0 [facility] Chloride assayOrdered By: Balbir Ruelas on 10-29-2024 Chloride [Moles/Vol] 102 mmol/L 98-108 [facility] Eosinophil percentageOrdered By: Balbirsherry Ruelas on 10-29-2024 Eosinophils/100 WBC (Bld) 2.1 % 0-5 [facility] Erythrocyte distribution wid th ratioOrdered By: Safia Ruelas on 10-29-2024 Erythrocyte distribution width (RBC) [Ratio] 13.6 % 11.6-14.6 [facility] Erythrocyte distribution wid th standard deviationOrdered By: Safia Ruelas on 10-29-2024 Erythrocyte distribution width (RBC) [Ratio] 46.6 fl High 35.1-43.9 [facility] Glomerular filtration rate ( GFR) estimation/1.73 sq m using serum, plasma, or whole bOrdered By: Safia Ruelas on 10-29-2024 GFR/1.73 sq M.predicted among non-blacks MDRD (S/P/Bld) [Vol rate/Area] 59 mL/min/{1.73_m2} Low >60 [facility] Comment on above: mL/min/1.73m2 CKD-EP I Creatinine Equation (2020) Hematocrit Auto (Bld) [Volum e fraction]Ordered By: Safia Ruelas on 10-29-2024 Hematocrit (Bld) [Volume fraction] 37.8 % 37-47 [facility] Hemoglobin measurementOrdere d By: Safia Ruelas on 10-29-2024 Hemoglobin (Bld) [Mass/Vol] 12.2 g/dL 12.0-15.0 [facility] Immature granulocytes/100 WB C Auto (Bld)Ordered By: Safia Ruelas on 10-29-2024 Immature granulocytes/100 WBC (Bld) 0.400 % 0.0-0.9 [facility] Comment on above: IG% - Immature Granu locytes (promyelocytes, myelocytes and metamyelocytes) > 1% indicates that a LEFT SHIFT is Present. MCV (mean corpuscular volume ) determinationOrdered By: Safia Ruelas on 10-29-2024 MCV (RBC) [Entitic vol] 92.2 fL 81-99 [facility] Mean corpuscular hemoglobin (MCH) determinationOrdered By: Safia Ruelas on 10-29-2024 MCH (RBC) [Entitic mass] 29.8 pg 27.0-32.0 [facility] Mean corpuscular hemoglobin concentration (MCHC) determinationOrdered By: Safia Ruelas on 10-29-2024 MCHC (RBC) [Mass/Vol] 32.3 g/dL 32-36 [facility] Mean platelet volume determi nationOrdered By: Safia Ruelas on 10-29-2024 Platelet mean volume (Bld) [Entitic vol] 11.1 fL 6.2-12.0 [facility] Monocyte percentageOrdered B y: Safia Ruelas on 10-29-2024 Monocytes/100 WBC (Bld) 9.9 % 0-10 [facility] Neutrophil percentageOrdered By: Safia Ruelas on 10-29-2024 Neutrophils/100 WBC (Bld) 54.3 % 47-70 [facility] Nucleated red blood cell per centageOrdered By: Safia Ruelas on 10-29-2024 Nucleated RBC/100 WBC (Bld) [Ratio] 0 % 0-5 [facility] Platelet countOrdered By: Balbir Ruelas on 10-29-2024 Platelets (Bld) [#/Vol] 283 10*3/uL 150-450 [facility] Potassium measurement (mass/ volume)Ordered By: Safia Ruelas on 10-29-2024 Potassium (Unsp spec) [Mass/Vol] 3.9 mmol/L 3.3-5.1 [facility] RBC Auto (Bld) [#/Vol]Ordere d By: Safia Ruelas on 10-29-2024 RBC (Bld) [#/Vol] 4.10 10*6/uL Low 4.2-5.4 [facility] Serum creatinine measurement (mass/volume)Ordered By: Safia Ruelas on 10-29-2024 Creatinine [Mass/Vol] 0.97 mg/dL 0.70-1.20 [facility] Serum glucose measurement (m ass/volume)Ordered By: Safia Ruelas on 10-29-2024 Glucose [Mass/Vol] 74 mg/dL 70-99 [facility] Serum or plasma calcium dayna urement (mass/volume)Ordered By: Safia Ruelas on 10-29-2024 Calcium [Mass/Vol] 9.5 mg/dL 7.6-11.0 [facility] Serum or plasma urea nitroge n measurement (mass/volume)Ordered By: Safia Ruelas on 10-29-2024 Urea nitrogen [Mass/Vol] 24 mg/dL High 4-19 [facility] Sodium levelOrdered By: Leonides jiménezradha Jessenia on 10-29-2024 Sodium [Moles/Vol] 138 mmol/L 133-145 [facility] White blood cell (WBC) count Ordered By: Safia Ruelas on 10-29-2024 WBC (Bld) [#/Vol] 8.3 10*3/uL 4.4-11.0 [facility] Bilirubin Test strip Ql (U)O rdered By: Safia Ruelas on 10-23-2024 Bilirubin Ql (U) Negative Negative [facility] Ketones Test strip Ql (U)Ord ered By: Safia Ruelas on 10-23-2024 Ketones Ql (U) Negative Negative [facility] Nitrite Test strip Ql (U)Ord ered By: Safia Ruelas on 10-23-2024 Nitrite Ql (U) Positive High Negative [facility] Protein Test strip Ql (U)Ord ered By: Safia Ruelas on 10-23-2024 Protein Ql (U) 15 mg/dl High Negative [facility] Urine clarityOrdered By: Augusto Ruelas on 10-23-2024 Clarity (U) Clear Clear [facility] Urine color determinationOrd ered By: Safia Ruelas on 10-23-2024 Color (U) Yellow Yellow [facility] Urine cultureOrdered By: Augusto Ruelas on 10-23-2024 Bacteria identified Cx Nom (U) Klebsiella pneumoniae sp pneum Abnormal [facility] Urine glucose detectionOrder ed By: Safia Ruelas on 10-23-2024 Glucose Ql (U) Normal mg/dl Normal [facility] Urine leukocyte esterase det ection by dipstickOrdered By: Safia Ruelas on 10-23-2024 Leukocyte esterase Test strip Ql (U) 500 /ul High Negative [facility] Urine pHOrdered By: Mazin Ruelas on 10-23-2024 pH (U) 6.0 [pH] 5.0 - 8.0 [facility] Urine specific gravity measu rementOrdered By: Safia Ruelas on 10-23-2024 Specific gravity (U) [Rel density] 1.010 1.002-1.030 [facility] Urine urobilinogen measureme ntOrdered By: Safia Ruelas on 10-23-2024 Urobilinogen Ql (U) Normal mg/dl Normal [facility] Absolute lymphocyte countOrd ered By: Safia Ruelas on 10-22-2024 Lymphocytes Auto (Unsp spec) [#/Vol] 3.07 10*3/uL 0.83-4.51 [facility] Absolute neutrophil countOrd ered By: Safia Ruelas on 10-22-2024 Neutrophils (Bld) [#/Vol] 4.6 10*3/uL 2.0-7.7 [facility] Anion gap in Serum or Plasma Ordered By: Safia Ruelas on 10-22-2024 Anion gap [Moles/Vol] 15 mmol/L 5-15 [facility] Automated lymphocyte count a s percentage of total leukocytesOrdered By: Safia Ruelas on 10-22-2024 Lymphocytes/100 WBC Auto (Unsp spec) 34.8 % 19-41 [facility] BUN/creatinine ratioOrdered By: Safia Ruelas on 10-22-2024 Urea nitrogen/Creatinine [Mass ratio] 28.6 mg/mg High 10-20 [facility] Basophil percentageOrdered B y: Safia Ruelas on 10-22-2024 Basophils/100 WBC (Bld) 0.9 % 0-1 [facility] Carbon dioxide, total [Moles /volume] in Central venous bloodOrdered By: Safia Ruelas on 10-22-2024 CO2 [Moles/Vol] 23.1 mmol/L 21.0-32.0 [facility] Chloride assayOrdered By: Balbir Ruelas on 10-22-2024 Chloride [Moles/Vol] 100 mmol/L 98-108 [facility] Eosinophil percentageOrdered By: Safia Ruelas on 10-22-2024 Eosinophils/100 WBC (Bld) 3.1 % 0-5 [facility] Erythrocyte distribution wid th ratioOrdered By: Safia Ruelas on 10-22-2024 Erythrocyte distribution width (RBC) [Ratio] 13.6 % 11.6-14.6 [facility] Erythrocyte distribution wid th standard deviationOrdered By: Leonidestoms riverskye Ruelas on 10-22-2024 Erythrocyte distribution width (RBC) [Ratio] 45.9 fl High 35.1-43.9 [facility] Glomerular filtration rate ( GFR) estimation/1.73 sq m using serum, plasma, or whole bOrdered By: Safia Ruelas on 10-22-2024 GFR/1.73 sq M.predicted among non-blacks MDRD (S/P/Bld) [Vol rate/Area] 60 mL/min/{1.73_m2} >60 [facility] Comment on above: mL/min/1.73m2 CKD-EP I Creatinine Equation (2020) Hematocrit Auto (Bld) [Volum e fraction]Ordered By: Safia Ruelas on 10-22-2024 Hematocrit (Bld) [Volume fraction] 40.7 % 37-47 [facility] Hemoglobin measurementOrdere d By: Safia Ruelas on 10-22-2024 Hemoglobin (Bld) [Mass/Vol] 13.1 g/dL 12.0-15.0 [facility] Immature granulocytes/100 WB C Auto (Bld)Ordered By: Safia Ruelas on 10-22-2024 Immature granulocytes/100 WBC (Bld) 1.400 % High 0.0-0.9 [facility] Comment on above: IG% - Immature Granu locytes (promyelocytes, myelocytes and metamyelocytes) > 1% indicates that a LEFT SHIFT is Present. MCV (mean corpuscular volume ) determinationOrdered By: Safia Ruelas on 10-22-2024 MCV (RBC) [Entitic vol] 91.9 fL 81-99 [facility] Mean corpuscular hemoglobin (MCH) determinationOrdered By: Safia Ruelas on 10-22-2024 MCH (RBC) [Entitic mass] 29.6 pg 27.0-32.0 [facility] Mean corpuscular hemoglobin concentration (MCHC) determinationOrdered By: Safia Ruelas on 10-22-2024 MCHC (RBC) [Mass/Vol] 32.2 g/dL 32-36 [facility] Mean platelet volume determi nationOrdered By: Safia Ruelas on 10-22-2024 Platelet mean volume (Bld) [Entitic vol] 11.2 fL 6.2-12.0 [facility] Monocyte percentageOrdered B y: Safia Ruelas on 10-22-2024 Monocytes/100 WBC (Bld) 7.7 % 0-10 [facility] Neutrophil percentageOrdered By: Safia Ruelas on 10-22-2024 Neutrophils/100 WBC (Bld) 52.1 % 47-70 [facility] Nucleated red blood cell per centageOrdered By: Safia Ruelas on 10-22-2024 Nucleated RBC/100 WBC (Bld) [Ratio] 0 % 0-5 [facility] Platelet countOrdered By: Balbir Ruelas on 10-22-2024 Platelets (Bld) [#/Vol] 334 10*3/uL 150-450 [facility] Potassium measurement (mass/ volume)Ordered By: Safia Ruelas on 10-22-2024 Potassium (Unsp spec) [Mass/Vol] 3.7 mmol/L 3.3-5.1 [facility] RBC Auto (Bld) [#/Vol]Ordere d By: Safia Ruelas on 10-22-2024 RBC (Bld) [#/Vol] 4.43 10*6/uL 4.2-5.4 [facility] Serum creatinine measurement (mass/volume)Ordered By: Safia Ruelas on 10-22-2024 Creatinine [Mass/Vol] 0.96 mg/dL 0.70-1.20 [facility] Serum glucose measurement (m ass/volume)Ordered By: Safia Ruelas on 10-22-2024 Glucose [Mass/Vol] 106 mg/dL High 70-99 [facility] Serum or plasma calcium dayna urement (mass/volume)Ordered By: Safia Ruelas on 10-22-2024 Calcium [Mass/Vol] 9.4 mg/dL 7.6-11.0 [facility] Serum or plasma urea nitroge n measurement (mass/volume)Ordered By: Safia Ruelas on 10-22-2024 Urea nitrogen [Mass/Vol] 28 mg/dL High 4-19 [facility] Sodium levelOrdered By: Leonides Ruelas on 10-22-2024 Sodium [Moles/Vol] 138 mmol/L 133-145 [facility] TSH DL <= 0.005 mIU/L QnOrde red By: Safia Ruelas on 10-22-2024 TSH Qn 4.630 uIU/mL High 0.300-4.200 [facility] White blood cell (WBC) count Ordered By: Safia Ruelas on 10-22-2024 WBC (Bld) [#/Vol] 8.8 10*3/uL 4.4-11.0 [facility] Absolute lymphocyte countOrd ered By: Safia Ruelas on 10-15-2024 Lymphocytes Auto (Unsp spec) [#/Vol] 3.04 10*3/uL 0.83-4.51 [facility] Absolute neutrophil countOrd ered By: Leonidesjosé antonio Westonmelanie on 10-15-2024 Neutrophils (Bld) [#/Vol] 4.3 10*3/uL 2.0-7.7 [facility] Anion gap in Serum or Plasma Ordered By: Safia Griderbonimelanie on 10-15-2024 Anion gap [Moles/Vol] 12 mmol/L 5-15 [facility] Automated lymphocyte count a s percentage of total leukocytesOrdered By: Safia Ruelas on 10-15-2024 Lymphocytes/100 WBC Auto (Unsp spec) 36.7 % 19-41 [facility] BUN/creatinine ratioOrdered By: jean marietoms riverskye Ruelas on 10-15-2024 Urea nitrogen/Creatinine [Mass ratio] 36.5 mg/mg High 10-20 [facility] Basophil percentageOrdered B y: Leonidesdesireeskye Griderbonimelanie on 10-15-2024 Basophils/100 WBC (Bld) 0.7 % 0-1 [facility] Carbon dioxide, total [Moles /volume] in Central venous bloodOrdered By: Safia Griderbonimelanie on 10-15-2024 CO2 [Moles/Vol] 25.2 mmol/L 21.0-32.0 [facility] Chloride assayOrdered By: Balbir Griderbonimealnie on 10-15-2024 Chloride [Moles/Vol] 100 mmol/L 98-108 [facility] Eosinophil percentageOrdered By: sherry Griderbonimelanie on 10-15-2024 Eosinophils/100 WBC (Bld) 2.4 % 0-5 [facility] Erythrocyte distribution wid th ratioOrdered By: sherry Griderbonimelanie on 10-15-2024 Erythrocyte distribution width (RBC) [Ratio] 13.5 % 11.6-14.6 [facility] Erythrocyte distribution wid th standard deviationOrdered By: sherry Ruelas on 10-15-2024 Erythrocyte distribution width (RBC) [Ratio] 45.2 fl High 35.1-43.9 [facility] Glomerular filtration rate ( GFR) estimation/1.73 sq m using serum, plasma, or whole bOrdered By: Safia Ruelas on 10-15-2024 GFR/1.73 sq M.predicted among non-blacks MDRD (S/P/Bld) [Vol rate/Area] 71 mL/min/{1.73_m2} >60 [facility] Comment on above: mL/min/1.73m2 CKD-EP I Creatinine Equation (2020) Hematocrit Auto (Bld) [Volum e fraction]Ordered By: Safia Ruelas on 10-15-2024 Hematocrit (Bld) [Volume fraction] 40.3 % 37-47 [facility] Hemoglobin measurementOrdere d By: Safia Ruelas on 10-15-2024 Hemoglobin (Bld) [Mass/Vol] 13.3 g/dL 12.0-15.0 [facility] Immature granulocytes/100 WB C Auto (Bld)Ordered By: Safia Ruelas on 10-15-2024 Immature granulocytes/100 WBC (Bld) 0.400 % 0.0-0.9 [facility] Comment on above: IG% - Immature Granu locytes (promyelocytes, myelocytes and metamyelocytes) > 1% indicates that a LEFT SHIFT is Present. MCV (mean corpuscular volume ) determinationOrdered By: Safia Ruelas on 10-15-2024 MCV (RBC) [Entitic vol] 91.0 fL 81-99 [facility] Mean corpuscular hemoglobin (MCH) determinationOrdered By: Safia Ruelas on 10-15-2024 MCH (RBC) [Entitic mass] 30.0 pg 27.0-32.0 [facility] Mean corpuscular hemoglobin concentration (MCHC) determinationOrdered By: Safia Ruelas on 10-15-2024 MCHC (RBC) [Mass/Vol] 33.0 g/dL 32-36 [facility] Mean platelet volume determi nationOrdered By: Safia Ruelas on 10-15-2024 Platelet mean volume (Bld) [Entitic vol] 11.9 fL 6.2-12.0 [facility] Monocyte percentageOrdered B y: Safia Griderghe on 10-15-2024 Monocytes/100 WBC (Bld) 8.2 % 0-10 [facility] Neutrophil percentageOrdered By: Safia Griderbonimelanie on 10-15-2024 Neutrophils/100 WBC (Bld) 51.6 % 47-70 [facility] Nucleated red blood cell per centageOrdered By: Safia Ruelas on 10-15-2024 Nucleated RBC/100 WBC (Bld) [Ratio] 0 % 0-5 [facility] Platelet countOrdered By: Balbir jean mariejosé antonio Ruelas on 10-15-2024 Platelets (Bld) [#/Vol] 221 10*3/uL 150-450 [facility] Potassium measurement (mass/ volume)Ordered By: Safia Ruelas on 10-15-2024 Potassium (Unsp spec) [Mass/Vol] 3.8 mmol/L 3.3-5.1 [facility] RBC Auto (Bld) [#/Vol]Ordere d By: Safia Ruelas on 10-15-2024 RBC (Bld) [#/Vol] 4.43 10*6/uL 4.2-5.4 [facility] Serum creatinine measurement (mass/volume)Ordered By: Safia Ruelas on 10-15-2024 Creatinine [Mass/Vol] 0.83 mg/dL 0.70-1.20 [facility] Serum glucose measurement (m ass/volume)Ordered By: Safia Ruelas on 10-15-2024 Glucose [Mass/Vol] 68 mg/dL Low 70-99 [facility] Serum or plasma calcium dayna urement (mass/volume)Ordered By: Safia Ruelas on 10-15-2024 Calcium [Mass/Vol] 9.3 mg/dL 7.6-11.0 [facility] Serum or plasma urea nitroge n measurement (mass/volume)Ordered By: Safia Ruelas on 10-15-2024 Urea nitrogen [Mass/Vol] 30 mg/dL High 4-19 [facility] Sodium levelOrdered By: Leonides Ruelas on 10-15-2024 Sodium [Moles/Vol] 138 mmol/L 133-145 [facility] White blood cell (WBC) count Ordered By: Safia Ruelas on 10-15-2024 WBC (Bld) [#/Vol] 8.3 10*3/uL 4.4-11.0 [facility] Absolute lymphocyte countOrd ered By: Safia Ruelas on 10-08-2024 Lymphocytes Auto (Unsp spec) [#/Vol] 2.52 10*3/uL 0.83-4.51 [facility] Absolute neutrophil countOrd ered By: Safia Ruelas on 10-08-2024 Neutrophils (Bld) [#/Vol] 4.9 10*3/uL 2.0-7.7 [facility] Anion gap in Serum or Plasma Ordered By: Safia Ruelas on 10-08-2024 Anion gap [Moles/Vol] 14 mmol/L 5-15 [facility] Automated lymphocyte count a s percentage of total leukocytesOrdered By: Safia Ruelas on 10-08-2024 Lymphocytes/100 WBC Auto (Unsp spec) 29.4 % 19-41 [facility] BUN/creatinine ratioOrdered By: Safia Ruelas on 10-08-2024 Urea nitrogen/Creatinine [Mass ratio] 34.1 mg/mg High 10-20 [facility] Basophil percentageOrdered B y: Safia Ruelas on 10-08-2024 Basophils/100 WBC (Bld) 0.7 % 0-1 [facility] Carbon dioxide, total [Moles /volume] in Central venous bloodOrdered By: Safia Ruelas on 10-08-2024 CO2 [Moles/Vol] 24.0 mmol/L 21.0-32.0 [facility] Chloride assayOrdered By: Balbir Ruelas on 10-08-2024 Chloride [Moles/Vol] 100 mmol/L 98-108 [facility] Eosinophil percentageOrdered By: Safia Ruelas on 10-08-2024 Eosinophils/100 WBC (Bld) 2.6 % 0-5 [facility] Erythrocyte distribution wid th ratioOrdered By: Safia Ruelas on 10-08-2024 Erythrocyte distribution width (RBC) [Ratio] 13.2 % 11.6-14.6 [facility] Erythrocyte distribution wid th standard deviationOrdered By: Safia Ruelas on 10-08-2024 Erythrocyte distribution width (RBC) [Ratio] 45.3 fl High 35.1-43.9 [facility] Glomerular filtration rate ( GFR) estimation/1.73 sq m using serum, plasma, or whole bOrdered By: Safia Ruelas on 10-08-2024 GFR/1.73 sq M.predicted among non-blacks MDRD (S/P/Bld) [Vol rate/Area] 65 mL/min/{1.73_m2} >60 [facility] Comment on above: mL/min/1.73m2 CKD-EP I Creatinine Equation (2020) Hematocrit Auto (Bld) [Volum e fraction]Ordered By: Leonidestoms riverskye Ruelas on 10-08-2024 Hematocrit (Bld) [Volume fraction] 41.7 % 37-47 [facility] Hemoglobin measurementOrdere d By: Safia Ruelas on 10-08-2024 Hemoglobin (Bld) [Mass/Vol] 13.3 g/dL 12.0-15.0 [facility] Immature granulocytes/100 WB C Auto (Bld)Ordered By: Safia Ruelas on 10-08-2024 Immature granulocytes/100 WBC (Bld) 0.400 % 0.0-0.9 [facility] Comment on above: IG% - Immature Granu locytes (promyelocytes, myelocytes and metamyelocytes) > 1% indicates that a LEFT SHIFT is Present. MCV (mean corpuscular volume ) determinationOrdered By: Safia Ruelas on 10-08-2024 MCV (RBC) [Entitic vol] 92.7 fL 81-99 [facility] Mean corpuscular hemoglobin (MCH) determinationOrdered By: Safia Ruelas 10-08-2024 MCH (RBC) [Entitic mass] 29.6 pg 27.0-32.0 [facility] Mean corpuscular hemoglobin concentration (MCHC) determinationOrdered By: Safia Ruelas 10-08-2024 MCHC (RBC) [Mass/Vol] 31.9 g/dL Low 32-36 [facility] Mean platelet volume determi nationOrdered By: Safia Ruelas on 10-08-2024 Platelet mean volume (Bld) [Entitic vol] 11.0 fL 6.2-12.0 [facility] [facility] Monocyte percentageOrdered B y: Safia Ruelas on 10-08-2024 Monocytes/100 WBC (Bld) 9.2 % 0-10 [facility] Neutrophil percentageOrdered By: Safia Ruelas on 10-08-2024 Neutrophils/100 WBC (Bld) 57.7 % 47-70 [facility] Nucleated red blood cell per centageOrdered By: Safia Griderbonimelanie on 10-08-2024 Nucleated RBC/100 WBC (Bld) [Ratio] 0 % 0-5 [facility] Platelet countOrdered By: Balbir jean mariejosé antonio Ruelas on 10-08-2024 Platelets (Bld) [#/Vol] 323 10*3/uL 150-450 [facility] Potassium measurement (mass/ volume)Ordered By: Safia Ruelas on 10-08-2024 Potassium (Unsp spec) [Mass/Vol] 4.1 mmol/L 3.3-5.1 [facility] RBC Auto (Bld) [#/Vol]Ordere d By: Safia Ruelas on 10-08-2024 RBC (Bld) [#/Vol] 4.50 10*6/uL 4.2-5.4 [facility] Serum creatinine measurement (mass/volume)Ordered By: Safia Ruelas on 10-08-2024 Creatinine [Mass/Vol] 0.90 mg/dL 0.70-1.20 [facility] Serum glucose measurement (m ass/volume)Ordered By: Safia Ruelas on 10-08-2024 Glucose [Mass/Vol] 82 mg/dL 70-99 [facility] Serum or plasma calcium dayna urement (mass/volume)Ordered By: Safia Ruelas on 10-08-2024 Calcium [Mass/Vol] 9.6 mg/dL 7.6-11.0 [facility] Serum or plasma urea nitroge n measurement (mass/volume)Ordered By: Safia Ruelas on 10-08-2024 Urea nitrogen [Mass/Vol] 31 mg/dL High 4-19 [facility] Sodium levelOrdered By: Leonides Ruelas on 10-08-2024 Sodium [Moles/Vol] 138 mmol/L 133-145 [facility] White blood cell (WBC) count Ordered By: Safia Ruelas on 10-08-2024 WBC (Bld) [#/Vol] 8.6 10*3/uL 4.4-11.0 [facility] 12 Lead EKG performed by [facility] on 10-02-2024 12 Lead EKG performed by [address] [address] 12 Lead EKG performed by [facility] 10/02/24920 MR#: [id number] Acct: [id number] Name: LINDSAY ACUNA Rep #: [id number] : 1945 78 From: Mj Benavides MD Attending Dr: Dr. Mj Benavides MD Status: DEP A MB Ordering Dr: Mj Benavides MD Date: 10/02/24 [place] [facility] [place] Sex: F C Admitted: BMS/12 Lead EKG performed by [facility] ECG Report Interpretation ---Atrial fibrillation -irregular conduction -Old anterior infarct. ABNORMAL Electronically signed on 10/02/2024 at 16:06 by Mj Benavideswood Software Version [id number] 10/02/24 1608 Date Mj Benavides MD CC: Dr. Kameron Caruso MD Date Dictated: 10/02/24920 Date Transcribed: 10/02/24920 Technical Planner: [place] Signed Normal [facility] Cardiology Visit Reporton Cardiology Visit Report [facility] [address] [place] [address] OFFICE VISIT Date of Service: 10/02/24 MR#: [id number] Acct: [id number] Name: LINDSAY ACUNA Rep #: [id number] : 1945 Provider: Dr. Mj Benavides MD Age/Sex: 78/F Location: [facility] Status: Signed HPI HPI History of [...] now she is currently domiciled in a group home. 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 Normal [facility] Absolute lymphocyte countOrd ered By: Safia Ruelas on 10-01-2024 Lymphocytes Auto (Unsp spec) [#/Vol] 2.45 10*3/uL 0.83-4.51 [facility] Absolute neutrophil countOrd ered By: Safia Ruelas on 10-01-2024 Neutrophils (Bld) [#/Vol] 6.5 10*3/uL 2.0-7.7 [facility] Anion gap in Serum or Plasma Ordered By: Safia Ruelas on 10-01-2024 Anion gap [Moles/Vol] 12 mmol/L 5- [facility] Automated lymphocyte count a s percentage of total leukocytesOrdered By: Safia Ruelas on 10-01-2024 Lymphocytes/100 WBC Auto (Unsp spec) 23.1 % 19- [facility] BUN/creatinine ratioOrdered By: Safia Ruelas on 10-01-2024 Urea nitrogen/Creatinine [Mass ratio] 24.9 mg/mg High - [facility] Basophil percentageOrdered B y: Safia Ruelas on 10-01-2024 Basophils/100 WBC (Bld) 0.5 % 0-1 [facility] Carbon dioxide, total [Moles /volume] in Central venous bloodOrdered By: Safia Ruelas on 10-01-2024 CO2 [Moles/Vol] 24.4 mmol/L 21.0-32.0 [facility] Chloride assayOrdered By: Balbir Ruelas on 10-01-2024 Chloride [Moles/Vol] 99 mmol/L 98-108 [facility] Eosinophil percentageOrdered By: Safia Ruelas on 10-01-2024 Eosinophils/100 WBC (Bld) 2.0 % 0-5 [facility] Erythrocyte distribution wid th ratioOrdered By: Safia Ruelas on 10-01-2024 Erythrocyte distribution width (RBC) [Ratio] 13.5 % 11.6-14.6 [facility] Erythrocyte distribution wid th standard deviationOrdered By: Safia Ruelas on 10-01-2024 Erythrocyte distribution width (RBC) [Ratio] 46.2 fl High 35.1-43.9 [facility] Glomerular filtration rate ( GFR) estimation/1.73 sq m using serum, plasma, or whole bOrdered By: Leonidestoms riverskye Ruelas on 10-01-2024 GFR/1.73 sq M.predicted among non-blacks MDRD (S/P/Bld) [Vol rate/Area] 63 mL/min/{1.73_m2} >60 [facility] Comment on above: mL/min/1.73m2 CKD-EP I Creatinine Equation (2020) Hematocrit Auto (Bld) [Volum e fraction]Ordered By: Safia Ruelas on 10-01-2024 Hematocrit (Bld) [Volume fraction] 38.7 % 37-47 [facility] Hemoglobin measurementOrdere d By: Safia Ruelas 10-01-2024 Hemoglobin (Bld) [Mass/Vol] 12.5 g/dL 12.0-15.0 [facility] Immature granulocytes/100 WB C Auto (Bld)Ordered By: Safia Ruelas on 10-01-2024 Immature granulocytes/100 WBC (Bld) 0.800 % 0.0-0.9 [facility] Comment on above: IG% - Immature Granu locytes (promyelocytes, myelocytes and metamyelocytes) > 1% indicates that a LEFT SHIFT is Present. MCV (mean corpuscular volume ) determinationOrdered By: Safia Ruelas on 10-01-2024 MCV (RBC) [Entitic vol] 93.3 fL 81-99 [facility] Mean corpuscular hemoglobin (MCH) determinationOrdered By: Safia Ruelas on 10-01-2024 MCH (RBC) [Entitic mass] 30.1 pg 27.0-32.0 [facility] Mean corpuscular hemoglobin concentration (MCHC) determinationOrdered By: Safia Ruelas on 10-01-2024 MCHC (RBC) [Mass/Vol] 32.3 g/dL 32-36 [facility] Mean platelet volume determi nationOrdered By: Safia Ruelas on 10-01-2024 Platelet mean volume (Bld) [Entitic vol] 11.7 fL 6.2-12.0 [facility] Monocyte percentageOrdered B y: Safia Ruelas on 10-01-2024 Monocytes/100 WBC (Bld) 12.7 % High 0-10 [facility] Neutrophil percentageOrdered By: Safia Ruelas on 10-01-2024 Neutrophils/100 WBC (Bld) 60.9 % 47-70 [facility] Nucleated red blood cell per centageOrdered By: Safia Ruelas on 10-01-2024 Nucleated RBC/100 WBC (Bld) [Ratio] 0 % 0-5 [facility] Platelet countOrdered By: Balbir jean mariejosé antonio Ruelas on 10-01-2024 Platelets (Bld) [#/Vol] 371 10*3/uL 150-450 [facility] Potassium measurement (mass/ volume)Ordered By: Safia Ruelas on 10-01-2024 Potassium (Unsp spec) [Mass/Vol] 4.2 mmol/L 3.3-5.1 [facility] RBC Auto (Bld) [#/Vol]Ordere d By: Safia Ruelas on 10-01-2024 RBC (Bld) [#/Vol] 4.15 10*6/uL Low 4.2-5.4 [facility] Serum creatinine measurement (mass/volume)Ordered By: Safia Ruelas on 10-01-2024 Creatinine [Mass/Vol] 0.93 mg/dL 0.70-1.20 [facility] Serum glucose measurement (m ass/volume)Ordered By: Safia Ruelas on 10-01-2024 Glucose [Mass/Vol] 93 mg/dL 70-99 [facility] Serum or plasma calcium dayna urement (mass/volume)Ordered By: Safia Ruelas on 10-01-2024 Calcium [Mass/Vol] 9.5 mg/dL 7.6-11.0 [facility] Serum or plasma urea nitroge n measurement (mass/volume)Ordered By: Safia Ruelas on 10-01-2024 Urea nitrogen [Mass/Vol] 23 mg/dL High 4-19 [facility] Sodium levelOrdered By: Leonides jiménezradha Jessenia on 10-01-2024 Sodium [Moles/Vol] 135 mmol/L 133-145 [facility] White blood cell (WBC) count Ordered By: Safia Ruelas on 10-01-2024 WBC (Bld) [#/Vol] 10.6 10*3/uL 4.4-11.0 [facility] Clostridium difficile detect ion by polymerase chain reactionOrdered By: Safia Ruelas on 09-29-2024 C. difficile DNA CHUCKY+probe Ql (Unsp spec) [facility] Absolute lymphocyte countOrd ered By: Safia Ruelas on 09-24-2024 Lymphocytes Auto (Unsp spec) [#/Vol] 2.72 10*3/uL 0.83-4.51 [facility] Absolute neutrophil countOrd ered By: Safia Ruelas on 09-24-2024 Neutrophils (Bld) [#/Vol] 6.3 10*3/uL 2.0-7.7 [facility] Anion gap in Serum or Plasma Ordered By: Safia Ruelas on 09-24-2024 Anion gap [Moles/Vol] 12 mmol/L 5-15 [facility] Automated lymphocyte count a s percentage of total leukocytesOrdered By: Safia Ruelas on 09-24-2024 Lymphocytes/100 WBC Auto (Unsp spec) 26.3 % 19-41 [facility] BUN/creatinine ratioOrdered By: Safia Ruelas on 09-24-2024 Urea nitrogen/Creatinine [Mass ratio] 36.4 mg/mg High 10-20 [facility] Basophil percentageOrdered B y: Safia Ruelas on 09-24-2024 Basophils/100 WBC (Bld) 0.7 % 0-1 [facility] Carbon dioxide, total [Moles /volume] in Central venous bloodOrdered By: Safia Ruelas on 09-24-2024 CO2 [Moles/Vol] 24.1 mmol/L 21.0-32.0 [facility] Chloride assayOrdered By: Balbir jean mariejosé antonio Ruelas on 09-24-2024 Chloride [Moles/Vol] 100 mmol/L 98-108 [facility] Eosinophil percentageOrdered By: Safia Griderbonimelanie on 09-24-2024 Eosinophils/100 WBC (Bld) 2.7 % 0-5 [facility] Erythrocyte distribution wid th ratioOrdered By: Safia Ruelas on 09-24-2024 Erythrocyte distribution width (RBC) [Ratio] 13.6 % 11.6-14.6 [facility] Erythrocyte distribution wid th standard deviationOrdered By: Safia Ruelas on 09-24-2024 Erythrocyte distribution width (RBC) [Ratio] 47.1 fl High 35.1-43.9 [facility] Glomerular filtration rate ( GFR) estimation/1.73 sq m using serum, plasma, or whole bOrdered By: Safia Ruelas on 09-24-2024 GFR/1.73 sq M.predicted among non-blacks MDRD (S/P/Bld) [Vol rate/Area] 62 mL/min/{1.73_m2} >60 [facility] Comment on above: mL/min/1.73m2 CKD-EP I Creatinine Equation (2020) Hematocrit Auto (Bld) [Volum e fraction]Ordered By: Safia Ruelas on 09-24-2024 Hematocrit (Bld) [Volume fraction] 41.2 % 37-47 [facility] Hemoglobin measurementOrdere d By: Safia Ruelas on 09-24-2024 Hemoglobin (Bld) [Mass/Vol] 13.0 g/dL 12.0-15.0 [facility] Immature granulocytes/100 WB C Auto (Bld)Ordered By: Safia Ruelas on 09-24-2024 Immature granulocytes/100 WBC (Bld) 1.000 % High 0.0-0.9 [facility] Comment on above: IG% - Immature Granu locytes (promyelocytes, myelocytes and metamyelocytes) > 1% indicates that a LEFT SHIFT is Present. MCV (mean corpuscular volume ) determinationOrdered By: Safia Ruelas on 09-24-2024 MCV (RBC) [Entitic vol] 94.3 fL 81-99 [facility] Mean corpuscular hemoglobin (MCH) determinationOrdered By: jean marietoms riverskye Ruelas on 09-24-2024 MCH (RBC) [Entitic mass] 29.7 pg 27.0-32.0 [facility] Mean corpuscular hemoglobin concentration (MCHC) determinationOrdered By: Safia Ruelas on 09-24-2024 MCHC (RBC) [Mass/Vol] 31.6 g/dL Low 32-36 [facility] Mean platelet volume determi nationOrdered By: Safia Ruelas on 09-24-2024 Platelet mean volume (Bld) [Entitic vol] 11.3 fL 6.2-12.0 [facility] Monocyte percentageOrdered B y: Safia Ruelas on 09-24-2024 Monocytes/100 WBC (Bld) 8.9 % 0-10 [facility] Neutrophil percentageOrdered By: Safia Ruelas on 09-24-2024 Neutrophils/100 WBC (Bld) 60.4 % 47-70 [facility] Nucleated red blood cell per centageOrdered By: Safia Ruelas on 09-24-2024 Nucleated RBC/100 WBC (Bld) [Ratio] 0 % 0-5 [facility] Platelet countOrdered By: Balbir Ruelas on 09-24-2024 Platelets (Bld) [#/Vol] 441 10*3/uL 150-450 [facility] Potassium measurement (mass/ volume)Ordered By: Safia Ruelas on 09-24-2024 Potassium (Unsp spec) [Mass/Vol] 4.3 mmol/L 3.3-5.1 [facility] RBC Auto (Bld) [#/Vol]Ordere d By: Safia Ruelas on 09-24-2024 RBC (Bld) [#/Vol] 4.37 10*6/uL 4.2-5.4 [facility] Serum creatinine measurement (mass/volume)Ordered By: Safia Ruelas on 09-24-2024 Creatinine [Mass/Vol] 0.93 mg/dL 0.70-1.20 [facility] Serum glucose measurement (m ass/volume)Ordered By: Safia Ruelas on 09-24-2024 Glucose [Mass/Vol] 48 mg/dL Low 70-99 [facility] Serum or plasma calcium dayna urement (mass/volume)Ordered By: Safia Ruelas on 09-24-2024 Calcium [Mass/Vol] 9.5 mg/dL 7.6-11.0 [facility] Serum or plasma urea nitroge n measurement (mass/volume)Ordered By: Safia Ruelas on 09-24-2024 Urea nitrogen [Mass/Vol] 34 mg/dL High 4-19 [facility] Sodium levelOrdered By: Leonides jiménezradha Jessenia on 09-24-2024 Sodium [Moles/Vol] 136 mmol/L 133-145 [facility] White blood cell (WBC) count Ordered By: Safia Ruelas on 09-24-2024 WBC (Bld) [#/Vol] 10.4 10*3/uL 4.4-11.0 [facility] Absolute lymphocyte countOrd ered By: Safia Ruelas on 09-17-2024 Lymphocytes Auto (Unsp spec) [#/Vol] 2.52 10*3/uL 0.83-4.51 [facility] Absolute neutrophil countOrd ered By: Safia Ruelas on 09-17-2024 Neutrophils (Bld) [#/Vol] 5.8 10*3/uL 2.0-7.7 [facility] Anion gap in Serum or Plasma Ordered By: Safia Ruelas on 09-17-2024 Anion gap [Moles/Vol] 12 mmol/L 5-15 [facility] Automated lymphocyte count a s percentage of total leukocytesOrdered By: Safia Ruelas on 09-17-2024 Lymphocytes/100 WBC Auto (Unsp spec) 26.3 % 19-41 [facility] BUN/creatinine ratioOrdered By: Safia Ruelas on 09-17-2024 Urea nitrogen/Creatinine [Mass ratio] 45.9 mg/mg High 10-20 [facility] Basophil percentageOrdered B y: Safia Ruelas on 09-17-2024 Basophils/100 WBC (Bld) 0.6 % 0-1 [facility] Calculated very low density lipoprotein (VLDL) cholesterol measurementOrdered By: Safia Ruelas on 09-17-2024 Calculated very low density lipoprotein (VLDL) cholesterol measurement 22 mg/dL -40 [facility] Carbon dioxide, total [Moles /volume] in Central venous bloodOrdered By: Safia Ruelas on 09-17-2024 CO2 [Moles/Vol] 24.5 mmol/L 21.0-32.0 [facility] Chloride assayOrdered By: Balbir Ruelas on 09-17-2024 Chloride [Moles/Vol] 98 mmol/L 98-108 [facility] Eosinophil percentageOrdered By: Safia Ruelas on 09-17-2024 Eosinophils/100 WBC (Bld) 3.2 % 0-5 [facility] Erythrocyte distribution wid th ratioOrdered By: Safia Ruelas on 09-17-2024 Erythrocyte distribution width (RBC) [Ratio] 13.4 % 11.6-14.6 [facility] Erythrocyte distribution wid th standard deviationOrdered By: Safia Ruelas on 09-17-2024 Erythrocyte distribution width (RBC) [Ratio] 45.4 fl High 35.1-43.9 [facility] Glomerular filtration rate ( GFR) estimation/1.73 sq m using serum, plasma, or whole bOrdered By: Safia Ruelas on 09-17-2024 GFR/1.73 sq M.predicted among non-blacks MDRD (S/P/Bld) [Vol rate/Area] 69 mL/min/{1.73_m2} >60 [facility] Comment on above: mL/min/1.73m2 CKD-EP I Creatinine Equation (2020) Hematocrit Auto (Bld) [Volum e fraction]Ordered By: Safia Ruelas on 09-17-2024 Hematocrit (Bld) [Volume fraction] 38.8 % 37-47 [facility] Hemoglobin measurementOrdere d By: Safia Ruelas on 09-17-2024 Hemoglobin (Bld) [Mass/Vol] 12.6 g/dL 12.0-15.0 [facility] Immature granulocytes/100 WB C Auto (Bld)Ordered By: Safia Ruelas on 09-17-2024 Immature granulocytes/100 WBC (Bld) 0.700 % 0.0-0.9 [facility] Comment on above: IG% - Immature Granu locytes (promyelocytes, myelocytes and metamyelocytes) > 1% indicates that a LEFT SHIFT is Present. LDL calc ser/plasOrdered By: Safia Ruelas on 09-17-2024 Cholesterol in LDL [Mass/Vol] 120 mg/dL [facility] Comment on above: Erzrcrlcyf=854-151 m g/dL & Higher Piwz=765 mg/dL or greater MCV (mean corpuscular volume ) determinationOrdered By: Safia Ruelas on 09-17-2024 MCV (RBC) [Entitic vol] 91.7 fL 81-99 [facility] Mean corpuscular hemoglobin (MCH) determinationOrdered By: Safia Ruelas on 09-17-2024 MCH (RBC) [Entitic mass] 29.8 pg 27.0-32.0 [facility] Mean corpuscular hemoglobin concentration (MCHC) determinationOrdered By: Safia Ruelas on 09-17-2024 MCHC (RBC) [Mass/Vol] 32.5 g/dL 32-36 [facility] Mean platelet volume determi nationOrdered By: Safia Ruelas on 09-17-2024 Platelet mean volume (Bld) [Entitic vol] 11.4 fL 6.2-12.0 [facility] Monocyte percentageOrdered B y: Safia Ruelas on 09-17-2024 Monocytes/100 WBC (Bld) 8.5 % 0-10 [facility] Neutrophil percentageOrdered By: Safia Ruelas on 09-17-2024 Neutrophils/100 WBC (Bld) 60.7 % 47-70 [facility] Nucleated red blood cell per centageOrdered By: Safia Ruelas on 09-17-2024 Nucleated RBC/100 WBC (Bld) [Ratio] 0 % 0-5 [facility] Platelet countOrdered By: Balbir Ruelas on 09-17-2024 Platelets (Bld) [#/Vol] 311 10*3/uL 150-450 [facility] Potassium measurement (mass/ volume)Ordered By: Safia Ruelas on 09-17-2024 Potassium (Unsp spec) [Mass/Vol] 4.1 mmol/L 3.3-5.1 [facility] RBC Auto (Bld) [#/Vol]Ordere d By: Safia Ruelas on 09-17-2024 RBC (Bld) [#/Vol] 4.23 10*6/uL 4.2-5.4 [facility] Screening total cholesterol/ high density lipoprotein (HDL) cholesterol ratioOrdered By: Safia Ruelas on 09-17-2024 Cholesterol.total/Alta sterol in HDL [Mass ratio] 5.38 {ratio} [facility] Serum creatinine measurement (mass/volume)Ordered By: Safia Ruelas on 09-17-2024 Creatinine [Mass/Vol] 0.86 mg/dL 0.70-1.20 [facility] Serum glucose measurement (m ass/volume)Ordered By: Safia Ruelas on 09-17-2024 Glucose [Mass/Vol] 216 mg/dL High 70-99 [facility] Serum or plasma calcium dayna urement (mass/volume)Ordered By: Safia Ruelas on 09-17-2024 Calcium [Mass/Vol] 9.4 mg/dL 7.6-11.0 [facility] Serum or plasma cholesterol in HDL measurement (mass/volume)Ordered By: Safia Ruelas on 09-17-2024 Cholesterol in HDL [Mass/Vol] 33 mg/dL Low >40 [facility] Comment on above: National Cholesterol Education Program (NCEP) guidelines:<40 mg/dL: Low HDL-cholesterol (major risk factor for CHD)>= 60 mg/dL: High HDL-cholesterol (negative risk factor for CHD)HDL-cholesterol is affected by a number of factors, e.g. smoking, exercise, hormones, sex and age. Serum or plasma cholesterol measurement (mass/volume)Ordered By: Safia Ruelas on 09-17-2024 Cholesterol [Mass/Vol] 175 mg/dL <201 [facility] Comment on above: Cholesterol level, D esirable <200 mg/dLBorderline high cholesterol 200-239 mg/dLHigh cholesterol >=240 mg/dLRecommendations of the NCEP Adult Treatment Panel for the following risk-cutoff thresholds for the [place] population. Serum or plasma urea nitroge n measurement (mass/volume)Ordered By: Safia Ruelas on 09-17-2024 Urea nitrogen [Mass/Vol] 39 mg/dL High 4-19 [facility] Sodium levelOrdered By: Leonides Ruelas on 09-17-2024 Sodium [Moles/Vol] 134 mmol/L 133-145 [facility] TSH DL <= 0.005 mIU/L QnOrde red By: Safia Ruelas on 09-17-2024 TSH Qn 3.500 uIU/mL 0.300-4.200 [facility] Triglycerides measurementOrd ered By: Safia Ruelas on 09-17-2024 Triglyceride [Mass/Vol] 111 mg/dL <199 [facility] Comment on above: The drugs N-Acetylcy steine and Metamizole may falsely depress this assay. Normal range: <150 mg/dLBorderline High: 150-199 mg/dLHigh: 200-499 mg/dLVery High: >500 mg/dL White blood cell (WBC) count Ordered By: Safia Ruelas on 09-17-2024 WBC (Bld) [#/Vol] 9.6 10*3/uL 4.4-11.0 [facility] Absolute lymphocyte countOrd ered By: Safia Ruelas on 09-10-2024 Lymphocytes Auto (Unsp spec) [#/Vol] 2.11 10*3/uL 0.83-4.51 [facility] Absolute neutrophil countOrd ered By: Leonidesdesireeskye Griderbonimelanie on 09-10-2024 Neutrophils (Bld) [#/Vol] 8.1 10*3/uL High 2.0-7.7 [facility] Anion gap in Serum or Plasma Ordered By: Safia Ruelas on 09-10-2024 Anion gap [Moles/Vol] 13 mmol/L 5-15 [facility] Automated lymphocyte count a s percentage of total leukocytesOrdered By: Safia Ruelas on 09-10-2024 Lymphocytes/100 WBC Auto (Unsp spec) 17.9 % Low 19-41 [facility] BUN/creatinine ratioOrdered By: Safia Ruelas on 09-10-2024 Urea nitrogen/Creatinine [Mass ratio] 29.1 mg/mg High 10-20 [facility] Basophil percentageOrdered B y: Safia Ruelas on 09-10-2024 Basophils/100 WBC (Bld) 0.3 % 0-1 [facility] Bilirubin, totalOrdered By: Safia Griderbonimelanie on 09-10-2024 Bilirubin [Mass/Vol] 0.55 mg/dL 0.00-1.30 [facility] Carbon dioxide, total [Moles /volume] in Central venous bloodOrdered By: Safia Ruelas on 09-10-2024 CO2 [Moles/Vol] 23.6 mmol/L 21.0-32.0 [facility] Chloride assayOrdered By: Balbir jean mariejosé antonio Ruelas on 09-10-2024 Chloride [Moles/Vol] 97 mmol/L Low 98-108 [facility] Eosinophil percentageOrdered By: Safia Westone on 09-10-2024 Eosinophils/100 WBC (Bld) 0.5 % 0-5 [facility] Erythrocyte distribution wid th ratioOrdered By: Safia Ruelas on 09-10-2024 Erythrocyte distribution width (RBC) [Ratio] 13.4 % 11.6-14.6 [facility] Erythrocyte distribution wid th standard deviationOrdered By: Safia Ruelas on 09-10-2024 Erythrocyte distribution width (RBC) [Ratio] 45.2 fl High 35.1-43.9 [facility] Glomerular filtration rate ( GFR) estimation/1.73 sq m using serum, plasma, or whole bOrdered By: Safia Ruelas on 09-10-2024 GFR/1.73 sq M.predicted among non-blacks MDRD (S/P/Bld) [Vol rate/Area] 59 mL/min/{1.73_m2} Low >60 [facility] Comment on above: mL/min/1.73m2 CKD-EP I Creatinine Equation (2020) Hematocrit Auto (Bld) [Volum e fraction]Ordered By: Safia Ruelas on 09-10-2024 Hematocrit (Bld) [Volume fraction] 41.8 % 37-47 [facility] Hemoglobin measurementOrdere d By: jean marietoms riverskye Ruelas on 09-10-2024 Hemoglobin (Bld) [Mass/Vol] 13.4 g/dL 12.0-15.0 [facility] Immature granulocytes/100 WB C Auto (Bld)Ordered By: sherry Ruelas 09-10-2024 Immature granulocytes/100 WBC (Bld) 0.800 % 0.0-0.9 [facility] Comment on above: IG% - Immature Granu locytes (promyelocytes, myelocytes and metamyelocytes) > 1% indicates that a LEFT SHIFT is Present. Laboratory - Chemistry and C hemistry - challengeOrdered By: Safia Ruelas on 09-10-2024 AST [Catalytic activity/Vol] 21 U/L <32 [facility] MCV (mean corpuscular volume ) determinationOrdered By: Safia Ruelas 09-10-2024 MCV (RBC) [Entitic vol] 92.5 fL 81-99 [facility] Mean corpuscular hemoglobin (MCH) determinationOrdered By: [facility] Gridermelanie 09-10-2024 MCH (RBC) [Entitic mass] 29.6 pg 27.0-32.0 [facility] Mean corpuscular hemoglobin concentration (MCHC) determinationOrdered By: sherry Ruelas 09-10-2024 MCHC (RBC) [Mass/Vol] 32.1 g/dL 32-36 [facility] Mean platelet volume determi nationOrdered By: Safia Ruelas on 09-10-2024 Platelet mean volume (Bld) [Entitic vol] 12.6 fL High 6.2-12.0 [facility] Monocyte percentageOrdered B y: Safia Ruelas on 09-10-2024 Monocytes/100 WBC (Bld) 12.3 % High 0-10 [facility] Neutrophil percentageOrdered By: Safia Ruelas on 09-10-2024 Neutrophils/100 WBC (Bld) 68.2 % 47-70 [facility] No Panel InformationOrdered By: Safia Ruelas on 09-10-2024 21 U/L <32 [facility] Nucleated red blood cell per centageOrdered By: Safia Ruelas on 09-10-2024 Nucleated RBC/100 WBC (Bld) [Ratio] 0 % 0-5 [facility] Platelet countOrdered By: Balbir Ruelas on 09-10-2024 Platelets (Bld) [#/Vol] 190 10*3/uL 150-450 [facility] Potassium measurement (mass/ volume)Ordered By: Safia Ruelas on 09-10-2024 Potassium (Unsp spec) [Mass/Vol] 4.3 mmol/L 3.3-5.1 [facility] RBC Auto (Bld) [#/Vol]Ordere d By: Safia Ruelas on 09-10-2024 RBC (Bld) [#/Vol] 4.52 10*6/uL 4.2-5.4 [facility] Serum creatinine measurement (mass/volume)Ordered By: Safia Ruelas on 09-10-2024 Creatinine [Mass/Vol] 0.98 mg/dL 0.70-1.20 [facility] Serum globulin measurementOr dered By: Safia Ruelas on 09-10-2024 Globulin (S) [Mass/Vol] 3.3 g/dL 2.2-4.2 [facility] Serum glucose measurement (m ass/volume)Ordered By: Safia Ruelas on 09-10-2024 Glucose [Mass/Vol] 181 mg/dL High 70-99 [facility] Serum or plasma alanine raymundo otransferase (ALT) measurementOrdered By: Safia Ruelas on 09-10-2024 ALT [Catalytic activity/Vol] 26 U/L <35 [facility] Serum or plasma albumin dayna urement (mass/volume)Ordered By: Safia Ruelas on 09-10-2024 Albumin [Mass/Vol] 3.4 g/dL 3.4-4.8 [facility] Serum or plasma albumin/glob ulin mass ratioOrdered By: Safia Ruelas on 09-10-2024 Albumin/Globulin [Mass ratio] 1.0 {ratio} 0.9-2.4 [facility] Serum or plasma alkaline hannah sphatase measurementOrdered By: Safia Ruelas on 09-10-2024 ALP [Catalytic activity/Vol] 114 U/L High 35-104 [facility] Serum or plasma calcium dayna urement (mass/volume)Ordered By: Safia Ruelas on 09-10-2024 Calcium [Mass/Vol] 9.3 mg/dL 7.6-11.0 [facility] Serum or plasma urea nitroge n measurement (mass/volume)Ordered By: Safia Ruelas on 09-10-2024 Urea nitrogen [Mass/Vol] 29 mg/dL High 4-19 [facility] Sodium levelOrdered By: Leonides Ruelas on 09-10-2024 Sodium [Moles/Vol] 133 mmol/L 133-145 [facility] Total proteinOrdered By: Augusto Ruelas on 09-10-2024 Protein [Mass/Vol] 6.7 g/dL 5.9-8.4 [facility] White blood cell (WBC) count Ordered By: Safia Ruelas on 09-10-2024 WBC (Bld) [#/Vol] 11.8 10*3/uL High 4.4-11.0 [facility] LABORATORYOrdered By: Abigail Smith on 09-09-2024 Glucose [Mass/Vol] 212 mg/dL High 82 - 115 mg/dL [employer] Work Phone: Glucose [Mass/Vol] 226 mg/dL High 82 - 115 mg/dL [employer] Work Phone: LABORATORYOrdered By: Zoila Zarco on 09-08-2024 Glucose [Mass/Vol] 149 mg/dL High 82 - 115 mg/dL [employer] Work Phone: LABORATORYOrdered By: Rob Palmer on 09-08-2024 Blood Glucose Testing Reason Routine (09/08/24 6:16 PM) [employer] Work Phone: Blood Glucose Testing Reason Routine (09/08/24 11:58 AM) [employer] Work Phone: LABORATORYOrdered By: Rob Palmer on 09-07-2024 Blood Glucose Testing Reason Routine (09/07/24 4:46 PM) [email or web address] Work Phone: .Auto Diffon 09-03-2024 Basophil, Absolute 0.1 10 3/mcL Normal 0.0-0.3 [facility] Comment on above: Performed By: #### A DIFF, CBC, ANEU, GFR, BMP #### [address] [address] Basophils/100 WBC (Bld) 1.0 % Normal 0.0-2.5 [facility] MAIN Comment on above: Performed By: #### A DIFF, CBC, ANEU, GFR, BMP #### [address] [address] Eosinophil, Absolute 0.2 10 3/mcL Normal 0.0-0.7 [facility] MAIN Comment on above: Performed By: #### A DIFF, CBC, ANEU, GFR, BMP #### [address] [address] Eosinophils/100 WBC (Bld) 3.2 % Normal 0.0-6.0 [facility] MAIN Comment on above: Performed By: #### A DIFF, CBC, ANEU, GFR, BMP #### [address] [address] Lymphocyte, Absolute 2.0 10 3/mcL Normal 0.9-4.3 [facility] MAIN Comment on above: Performed By: #### A DIFF, CBC, ANEU, GFR, BMP #### [address] [address] Lymphocytes/100 WBC (Bld) 26.6 % Normal 20.0-40.0 [facility] MAIN Comment on above: Performed By: #### A DIFF, CBC, ANEU, GFR, BMP #### [address] [address] Monocyte, Absolute 0.7 10 3/mcL Normal 0.1-1.4 [facility] MA[facility] Comment on above: Performed By: #### A DIFF, CBC, ANEU, GFR, BMP #### [address] [address] Monocytes/100 WBC (Bld) 9.7 % Normal 2.0-13.0 [facility] MAIN Comment on above: Performed By: #### A DIFF, CBC, ANEU, GFR, BMP #### [address] [address] Neutrophils/100 WBC (Bld) 59.5 % Normal 50.0-75.0 [facility] MAIN Comment on above: Performed By: #### A DIFF, CBC, ANEU, GFR, BMP #### [address] [address] .GFRon 09-03-2024 Estimated Glomerular Filtration Rate 57 ml/min/1.73sqm Normal [facility] MAIN Comment on above: Result [...] A DIFF, CBC, ANEU, GFR, BMP #### [place] [address] .NEUABSon 09-03-2024 Neutrophil, Absolute 4.5 10 3/mcL Normal 2.3-8.1 [facility] MAIN Comment on above: Performed By: #### A DIFF, CBC, ANEU, GFR, BMP #### [place] [address] B12on 09-03-2024 Cobalamin (Vitamin B12) [Mass/Vol] 834 pg/mL Normal 211-911 [facility] MAIN Comment on above: Performed By: #### A DIFF, CBC, ANEU, GFR, BMP #### [place] [address] CBCon 09-03-2024 Erythrocyte distribution width (RBC) [Ratio] 14.7 % Normal 11.5-15.5 [facility] MAIN Comment on above: Performed By: #### A DIFF, CBC, ANEU, GFR, BMP #### [place] [address] Hematocrit (Bld) [Volume fraction] 39.7 % Normal 34.0-46.0 [facility] MAIN Comment on above: Performed By: #### A DIFF, CBC, ANEU, GFR, BMP #### [place] [address] Hgb 13.2 G/dL Normal 12.0-16.0 [facility] MAIN Comment on above: Performed By: #### A DIFF, CBC, ANEU, GFR, BMP #### [place] [address] MCH (RBC) [Entitic mass] 30.6 pg Normal 27.0-33.0 [facility] MAIN Comment on above: Performed By: #### A DIFF, CBC, ANEU, GFR, BMP #### [place] [address] MCHC 33.3 G/dL Normal 32.0-36.0 [facility] MAIN Comment on above: Performed By: #### A DIFF, CBC, ANEU, GFR, BMP #### [address] [address] MCV (RBC) [Entitic vol] 91.9 fL Normal 80.0-99.0 [facility] MAIN Comment on above: Performed By: #### A DIFF, CBC, ANEU, GFR, BMP #### [address] [address] Platelet 228 10 3/mcL Normal 150-450 [facility] MAIN Comment on above: Performed By: #### A DIFF, CBC, ANEU, GFR, BMP #### [address] [address] Platelet mean volume (Bld) [Entitic vol] 10.1 fL Normal 6.6-10.5 [facility] MAIN Comment on above: Performed By: #### A DIFF, CBC, ANEU, GFR, BMP #### [place] [address] RBC 4.32 10 6/mcL Normal 4.10-5.30 [facility] MAIN Comment on above: Performed By: #### A DIFF, CBC, ANEU, GFR, BMP #### [place] [id number] WBC 7.6 10 3/mcL Normal 4.5-10.8 [facility] MAIN Comment on above: Performed By: #### A DIFF, CBC, ANEU, GFR, BMP #### [place] [id number] CMPon 09-03-2024 Albumin Level 3.0 G/dL Low 3.2-4.8 [facility] MAIN Comment on above: Performed By: #### A DIFF, CBC, ANEU, GFR, BMP #### [place] [id number] Albumin/Globulin [Mass ratio] 0.9 {ratio} Normal 0.9-1.6 [facility] MAIN Comment on above: Performed By: #### A DIFF, CBC, ANEU, GFR, BMP #### [place] [id number] ALP [Catalytic activity/Vol] 115 U/L Normal 38-126 [facility] MAIN Comment on above: Performed By: #### A DIFF, CBC, ANEU, GFR, BMP #### [address] [address] ALT [Catalytic activity/Vol] 37 U/L Normal 10-49 [facility] MAIN Comment on above: Performed By: #### A DIFF, CBC, ANEU, GFR, BMP #### [address] [address] AST [Catalytic activity/Vol] 31 U/L Normal 8-34 [facility] MAIN Comment on above: Performed By: #### A DIFF, CBC, ANEU, GFR, BMP #### [address] [address] Bili Total 0.50 mg/dL Normal 0.20-1.20 [facility] MAIN Comment on above: Result Comment: Use of this assay is not recommended for patients undergoing treatment with eltrombopag due to the potential for falsely elevated results. Performed By: #### A DIFF, CBC, ANEU, GFR, BMP #### [place] [address] BUN/Creatinine Ratio 29.7 ratio High 10.0-22.0 [facility] MA[facility] Comment on above: Performed By: #### A DIFF, CBC, ANEU, GFR, BMP #### [place] [id number] Calcium [Mass/Vol] 9.6 mg/dL Normal 8.7-10.4 [facility] MAIN Comment on above: Performed By: #### A DIFF, CBC, ANEU, GFR, BMP #### [place] [id number] Chloride [Moles/Vol] 101 mmol/L Normal 98-110 [facility] MA[facility] Comment on above: Performed By: #### A DIFF, CBC, ANEU, GFR, BMP #### [place] [id number] CO2 [Moles/Vol] 27 mmol/L Normal 22-32 [facility] MAIN Comment on above: Performed By: #### A DIFF, CBC, ANEU, GFR, BMP #### [place] [id number] Creatinine [Mass/Vol] 1.01 mg/dL Normal 0.50-1.20 [facility] MAIN Comment on above: Result Comment: Test ing performed on SecureWave analyzer using enzymatic creatinine methodology. Performed By: #### A DIFF, CBC, ANEU, GFR, BMP #### [address] [address] Electrolyte Balance 10.0 mEq/L Normal 4.0-15.0 [facility] MAIN Comment on above: Performed By: #### A DIFF, CBC, ANEU, GFR, BMP #### [address] [address] Globulin 3.4 G/dL Normal 1.5-3.8 [facility] MAIN Comment on above: Performed By: #### A DIFF, CBC, ANEU, GFR, BMP #### [address] [address] Glucose [Mass/Vol] 187 mg/dL High 82-115 [facility] MAIN Comment on above: Performed By: #### A DIFF, CBC, ANEU, GFR, BMP #### [address] [address] Potassium [Moles/Vol] 4.6 mmol/L Normal 3.5-5.0 [facility] MAIN Comment on above: Performed By: #### A DIFF, CBC, ANEU, GFR, BMP #### [address] [address] Sodium [Moles/Vol] 138 mmol/L Normal 136-145 [facility] MAIN Comment on above: Performed By: #### A DIFF, CBC, ANEU, GFR, BMP #### [address] [address] Total Protein 6.4 G/dL Normal 5.7-8.2 [facility] MAIN Comment on above: Performed By: #### A DIFF, CBC, ANEU, GFR, BMP #### [address] [address] Urea nitrogen [Mass/Vol] 30.0 mg/dL High 8.0-22.0 [facility] MAIN Comment on above: Performed By: #### A DIFF, CBC, ANEU, GFR, BMP #### [address] [place] [address] LABORATORYOrdered By: Ann Carrillo on 09-03-2024 Glucose [...] above: Interpretive Data: T esting performed on SecureWave analyzer using enzymatic creatinine methodology. Electrolyte Balance [...] TSHon 09-03-2024 TSH 3.920 mIU/mL Normal 0.550-4.780 [facility] MAIN Comment on above: Performed By: #### A DIFF, CBC, ANEU, GFR, BMP #### [place] [address] CT HEAD OR BRAIN W/O CONTRAS Ton [...] 09/02/2024 3:10:44 PM Ordering Provider: SILVINO HA [facility] 08-30-2024 RANDEE Telephone (FAMPWS) CAUNALINDSAY EVANS ([id number]) 1945 F Date Time Provider Department 08/30/24 [facility] During your visit today, we recorded the following information about you: Jaiden Paulino RN 08/30/2024 9:11 AM Signed [facility] reports patient was in [facility] with dx: stroke, and transferred to [facility]. [facility] with [facility] SN PT OT [facility]. Asking if pcp agreeable to follow for [facility]. Please phone Marya with verbal: [phone] Mj Glover APRN.GARRETT 08/30/2024 9:19 AM Signed Please let know that Dr. Caruso's team will follow orders. Okay to proceed. Mj Glover APRN.Fouzia Reynoso LPN 08/30/2024 10:09 AM Signed Marya with [facility] notified. Allergies As of Date: 08/30/2024 Noted Allergy Reaction BENZOCAINE 07/08/2005 2 - Rash COCAINE 05/28/2008 Comments: Inverted T PERFUMES 07/08/2005 12 - Shortness of Breath Comments: coughes and chokes SULFA (SULFONAMIDE ANTIBIOTICS) 07/08/2005 5 - Intolerance Date Reviewed: 06/26/2024 Reviewed by: Bret Arambula LPN - Fully Assessed Reason for Visit: [facility] requesting verbal agree to follow [...] FOUZIA MILLER on 08/30/24 Normal [facility] .Auto Diffon 08-26-2024 Basophil, Absolute 0.1 10 3/mcL Normal 0.0-0.3 [facility] MAIN Comment on above: Performed By: #### A DIFF, CBC, ANEU, GFR, BMP #### [address] [address] Basophils/100 WBC (Bld) 1.0 % Normal 0.0-2.5 [facility] MAIN Comment on above: Performed By: #### A DIFF, CBC, ANEU, GFR, BMP #### [address] [address] Eosinophil, Absolute 0.3 10 3/mcL Normal 0.0-0.7 [facility] MAIN Comment on above: Performed By: #### A DIFF, CBC, ANEU, GFR, BMP #### [address] [address] Eosinophils/100 WBC (Bld) 4.2 % Normal 0.0-6.0 [facility] MAIN Comment on above: Performed By: #### A DIFF, CBC, ANEU, GFR, BMP #### [address] [address] Lymphocyte, Absolute 2.2 10 3/mcL Normal 0.9-4.3 [facility] MAIN Comment on above: Performed By: #### A DIFF, CBC, ANEU, GFR, BMP #### [address] [address] Lymphocytes/100 WBC (Bld) 26.3 % Normal 20.0-40.0 [facility] MAIN Comment on above: Performed By: #### A DIFF, CBC, ANEU, GFR, BMP #### [address] [address] Monocyte, Absolute 0.9 10 3/mcL Normal 0.1-1.4 [facility] MAIN Comment on above: Performed By: #### A DIFF, CBC, ANEU, GFR, BMP #### [address] [address] Monocytes/100 WBC (Bld) 11.4 % Normal 2.0-13.0 [facility] MAIN Comment on above: Performed By: #### A DIFF, CBC, ANEU, GFR, BMP #### [address] [address] Neutrophils/100 WBC (Bld) 57.1 % Normal 50.0-75.0 [facility] MAIN Comment on above: Performed By: #### A DIFF, CBC, ANEU, GFR, BMP #### [address] [address] .GFRon 08-26-2024 Estimated Glomerular Filtration Rate 59 ml/min/1.73sqm Normal [facility] MAIN Comment on above: Result [...] A DIFF, CBC, ANEU, GFR, BMP #### [address] [address] .NEUABSon 08-26-2024 Neutrophil, Absolute 4.7 10 3/mcL Normal 2.3-8.1 [facility] MAIN Comment on above: Performed By: #### A DIFF, CBC, ANEU, GFR, BMP #### [address] [address] BMPon 08-26-2024 BUN/Creatinine Ratio 35.1 ratio High 10.0-22.0 [facility] MA[facility] Comment on above: Performed By: #### A DIFF, CBC, ANEU, GFR, BMP #### [place] [address] Calcium [Mass/Vol] 9.8 mg/dL Normal 8.7-10.4 [facility] MAIN Comment on above: Performed By: #### A DIFF, CBC, ANEU, GFR, BMP #### [place] [address] Chloride [Moles/Vol] 98 mmol/L Normal 98-110 [facility] MAIN Comment on above: Performed By: #### A DIFF, CBC, ANEU, GFR, BMP #### [place] [address] CO2 [Moles/Vol] 25 mmol/L Normal 22-32 [facility] MAIN Comment on above: Performed By: #### A DIFF, CBC, ANEU, GFR, BMP #### [place] [address] Creatinine [Mass/Vol] 0.97 mg/dL Normal 0.50-1.20 [facility] MAIN Comment on above: Result Comment: Test ing performed on SecureWave analyzer using enzymatic creatinine methodology. Performed By: #### A DIFF, CBC, ANEU, GFR, BMP #### [place] [address] Electrolyte Balance 12.0 mEq/L Normal 4.0-15.0 [facility] MAIN Comment on above: Performed By: #### A DIFF, CBC, ANEU, GFR, BMP #### [place] [address] Glucose [Mass/Vol] 160 mg/dL High 82-115 [facility] MAIN Comment on above: Performed By: #### A DIFF, CBC, ANEU, GFR, BMP #### [place] [id number] Potassium [Moles/Vol] 4.7 mmol/L Normal 3.5-5.0 [facility] MAIN Comment on above: Result Comment: Spec imen slightly hemolyzed. Performed By: #### A DIFF, CBC, ANEU, GFR, BMP #### [place] [address] Sodium [Moles/Vol] 135 mmol/L Low 136-145 [facility] MAIN Comment on above: Performed By: #### A DIFF, CBC, ANEU, GFR, BMP #### [place] [address] Urea nitrogen [Mass/Vol] 34.0 mg/dL High 8.0-22.0 [facility] MAIN Comment on above: Performed By: #### A DIFF, CBC, ANEU, GFR, BMP #### [address] [address] CBCon 08-26-2024 Erythrocyte distribution width (RBC) [Ratio] 14.0 % Normal 11.5-15.5 [facility] MAIN Comment on above: Performed By: #### A DIFF, CBC, ANEU, GFR, BMP #### [place] [id number] Hematocrit (Bld) [Volume fraction] 41.0 % Normal 34.0-46.0 [facility] MAIN Comment on above: Performed By: #### A DIFF, CBC, ANEU, GFR, BMP #### [place] [id number] Hgb 13.4 G/dL Normal 12.0-16.0 [facility] MAIN Comment on above: Performed By: #### A DIFF, CBC, ANEU, GFR, BMP #### [place] [address] MCH (RBC) [Entitic mass] 30.0 pg Normal 27.0-33.0 [facility] MAIN Comment on above: Performed By: #### A DIFF, CBC, ANEU, GFR, BMP #### [address] [address] MCHC 32.7 G/dL Normal 32.0-36.0 [facility] MAIN Comment on above: Performed By: #### A DIFF, CBC, ANEU, GFR, BMP #### [address] [address] MCV (RBC) [Entitic vol] 91.9 fL Normal 80.0-99.0 [facility] MAIN Comment on above: Performed By: #### A DIFF, CBC, ANEU, GFR, BMP #### [place] [id number] Platelet 297 10 3/mcL Normal 150-450 [facility] MAIN Comment on above: Performed By: #### A DIFF, CBC, ANEU, GFR, BMP #### [place] [address] Platelet mean volume (Bld) [Entitic vol] 11.0 fL High 6.6-10.5 [facility] MAIN Comment on above: Performed By: #### A DIFF, CBC, ANEU, GFR, BMP #### [address] [address] RBC 4.46 10 6/mcL Normal 4.10-5.30 [facility] MAIN Comment on above: Performed By: #### A DIFF, CBC, ANEU, GFR, BMP #### [address] [address] WBC 8.3 10 3/mcL Normal 4.5-10.8 [facility] MAIN Comment on above: Performed By: #### A DIFF, CBC, ANEU, GFR, BMP #### [address] [address] LABORATORYOrdered By: SYSTEM SYSTEM on 08-26-2024 Basophils [...] above: Interpretive Data: T esting performed on SecureWave analyzer using enzymatic creatinine methodology. Electrolyte Balance [...] Sign Date: 08/25/2024 2:27:26 PM Ordering Provider: [facility] MAIN XR HUMERUS MINIMUM 2 VIEWS L [facility] 08-25-2024 XR HUMERUS MINIMUM 2 VIEWS LEFT [...] Sign Date: 08/25/2024 2:26:11 PM Ordering Provider: [facility] MAIN XR SHOULDER MINIMUM 2 [...] 08/25/2024 2:26:45 PM Ordering Provider: JACKLYN LINDSEY [facility] MAIN LABORATORYOrdered By: Kala lux on 08-23-2024 Glucose [Mass/Vol] 278 mg/dL [facility] Work Phone: LABORATORYOrdered By: Kala lux on 08-22-2024 Glucose [Mass/Vol] 320 mg/dL [facility] Work Phone: A1Con 08-21-2024 Glucose [Mass/Vol] 194 mg/dL Normal [facility] MAIN Comment on above: Result Comment: Nancy mated Average Glucose calculated by equation ((28.7xA1C)-46.7) Estimated average glucose (eAG) is a calculated value from Hemoglobin A1C and is field support representative of the average blood glucose level in the last 2-3 month period. Normal range: less than 114 mg/dL Performed By: #### A 1C #### [place] [address] HbA1c (Bld) [Mass fraction] 8.4 % High 4.0-6.0 [facility] MAIN Comment on above: Performed By: #### A 1C #### [place] [address] LABORATORYOrdered By: SYSTEM SYSTEM on 08-21-2024 Glucose [Mass/Vol] 194 mg/dL Invalid Interpretation Code Auto Chem SS Comment on above: Interpretive Data: E stimated average glucose (eAG) is a calculated value from Hemoglobin A1C and is field support representative of the average blood glucose level in the last 2-3 month period. Normal range: less than 114 mg/dL HbA1c (Bld) [Mass fraction] 8.4 % High 4.0 - 6.0 % Auto Chem SS .Auto Diffon 08-20-2024 Basophil, Absolute 0.1 10 3/mcL Normal 0.0-0.3 [facility] MAIN Comment on above: Performed By: #### B MP, ADIFF, CBC, GFR, ANEU #### [address] [address] Basophils/100 WBC (Bld) 1.1 % Normal 0.0-2.5 [facility] MAIN Comment on above: Performed By: #### B MP, ADIFF, CBC, GFR, ANEU #### [address] [address] Eosinophil, Absolute 0.3 10 3/mcL Normal 0.0-0.7 [facility] MAIN Comment on above: Performed By: #### B MP, ADIFF, CBC, GFR, ANEU #### [address] [address] Eosinophils/100 WBC (Bld) 3.6 % Normal 0.0-6.0 [facility] MAIN Comment on above: Performed By: #### B MP, ADIFF, CBC, GFR, ANEU #### [address] [address] Lymphocyte, Absolute 1.7 10 3/mcL Normal 0.9-4.3 [facility] MAIN Comment on above: Performed By: #### B MP, ADIFF, CBC, GFR, ANEU #### [address] [address] Lymphocytes/100 WBC (Bld) 20.8 % Normal 20.0-40.0 [facility] MAIN Comment on above: Performed By: #### B MP, ADIFF, CBC, GFR, ANEU #### [address] [address] Monocyte, Absolute 0.9 10 3/mcL Normal 0.1-1.4 [facility] MAIN Comment on above: Performed By: #### B MP, ADIFF, CBC, GFR, ANEU #### [address] [address] Monocytes/100 WBC (Bld) 11.4 % Normal 2.0-13.0 [facility] MAIN Comment on above: Performed By: #### B MP, ADIFF, CBC, GFR, ANEU #### [address] [address] Neutrophils/100 WBC (Bld) 63.1 % Normal 50.0-75.0 [facility] MAIN Comment on above: Performed By: #### B MP, ADIFF, CBC, GFR, ANEU #### [address] [address] .GFRon 08-20-2024 Estimated Glomerular Filtration Rate 55 ml/min/1.73sqm Normal [facility] MAIN Comment on above: Result [...] A DIFF, CBC, ANEU, GFR, BMP #### [address] [address] .NEUABSon 08-20-2024 Neutrophil, Absolute 5.1 10 3/mcL Normal 2.3-8.1 [facility] MAIN Comment on above: Performed By: #### B MP, ADIFF, CBC, GFR, ANEU #### [address] [address] BMPon 08-20-2024 BUN/Creatinine Ratio 29.8 ratio High 10.0-22.0 [facility] MAIN Comment on above: Performed By: #### B MP, ADIFF, CBC, GFR, ANEU #### [address] [address] Calcium [Mass/Vol] 9.8 mg/dL Normal 8.7-10.4 [facility] MAIN Comment on above: Performed By: #### B MP, ADIFF, CBC, GFR, ANEU #### [address] [address] Chloride [Moles/Vol] 95 mmol/L Low 98-110 [facility] MAIN Comment on above: Performed By: #### B MP, ADIFF, CBC, GFR, ANEU #### [address] [address] CO2 [Moles/Vol] 34 mmol/L High 22-32 [facility] MAIN Comment on above: Performed By: #### B MP, ADIFF, CBC, GFR, ANEU #### [address] [address] Creatinine [Mass/Vol] 1.04 mg/dL Normal 0.50-1.20 [facility] MAIN Comment on above: Result Comment: Test ing performed on SecureWave analyzer using enzymatic creatinine methodology. Performed By: #### B MP, ADIFF, CBC, GFR, ANEU #### [place] [id number] Electrolyte Balance 5.0 mEq/L Normal 4.0-15.0 [facility] MAIN Comment on above: Performed By: #### B MP, ADIFF, CBC, GFR, ANEU #### [address] [address] Glucose [Mass/Vol] 244 mg/dL High 82-115 [facility] MAIN Comment on above: Performed By: #### B MP, ADIFF, CBC, GFR, ANEU #### [address] [address] Potassium [Moles/Vol] 4.8 mmol/L Normal 3.5-5.0 [facility] MAIN Comment on above: Result Comment: Spec imen slightly hemolyzed. Performed By: #### B MP, ADIFF, CBC, GFR, ANEU #### [address] [address] Sodium [Moles/Vol] 134 mmol/L Low 136-145 [facility] MAIN Comment on above: Performed By: #### B MP, ADIFF, CBC, GFR, ANEU #### [address] [address] Urea nitrogen [Mass/Vol] 31.0 mg/dL High 8.0-22.0 [facility] MAIN Comment on above: Performed By: #### B MP, ADIFF, CBC, GFR, ANEU #### [place] [address] CBCon 08-20-2024 Erythrocyte distribution width (RBC) [Ratio] 14.0 % Normal 11.5-15.5 [facility] MAIN Comment on above: Performed By: #### B MP, ADIFF, CBC, GFR, ANEU #### [place] [address] Hematocrit (Bld) [Volume fraction] 41.9 % Normal 34.0-46.0 [facility] MAIN Comment on above: Performed By: #### B MP, ADIFF, CBC, GFR, ANEU #### [place] [address] Hgb 13.6 G/dL Normal 12.0-16.0 [facility] MAIN Comment on above: Performed By: #### B MP, ADIFF, CBC, GFR, ANEU #### [place] [address] MCH (RBC) [Entitic mass] 29.7 pg Normal 27.0-33.0 [facility] MAIN Comment on above: Performed By: #### B MP, ADIFF, CBC, GFR, ANEU #### [place] [address] MCHC 32.4 G/dL Normal 32.0-36.0 [facility] MAIN Comment on above: Performed By: #### B MP, ADIFF, CBC, GFR, ANEU #### [place] [address] MCV (RBC) [Entitic vol] 91.5 fL Normal 80.0-99.0 [facility] MAIN Comment on above: Performed By: #### B MP, ADIFF, CBC, GFR, ANEU #### [place] [address] Platelet 301 10 3/mcL Normal 150-450 [facility] MAIN Comment on above: Performed By: #### B MP, ADIFF, CBC, GFR, ANEU #### [facility] [address] [place], [place] [address] Platelet mean volume (Bld) [Entitic vol] 11.0 fL High 6.6-10.5 [facility] MAIN Comment on above: Performed By: #### B MP, ADIFF, CBC, GFR, ANEU #### [address] [address] RBC 4.58 10 6/mcL Normal 4.10-5.30 [facility] MAIN Comment on above: Performed By: #### B MP, ADIFF, CBC, GFR, ANEU #### [address] [address] WBC 8.1 10 3/mcL Normal 4.5-10.8 [facility] MAIN Comment on above: Performed By: #### B MP, ADIFF, CBC, GFR, ANEU #### [address] [address] LABORATORYOrdered By: SYSTEM SYSTEM on 08-20-2024 Basophils [...] above: Interpretive Data: T esting performed on SecureWave analyzer using enzymatic creatinine methodology. Electrolyte Balance [...] 08/18/2024 3:14:15 PM Ordering Provider: NANDO Anderson [facility] MAIN .Auto Diffon 08-16-2024 Basophil, Absolute 0.1 10 3/mcL Normal 0.0-0.3 [facility] MAIN Comment on above: Performed By: #### A DIFF, CBC, ANEU, GFR, BMP #### [facility] [address] [place] [address] Basophils/100 WBC (Bld) 0.7 % Normal 0.0-2.5 [facility] MAIN Comment on above: Performed By: #### A DIFF, CBC, ANEU, GFR, BMP #### [address] [address] Eosinophil, Absolute 0.3 10 3/mcL Normal 0.0-0.7 [facility] MAIN Comment on above: Performed By: #### A DIFF, CBC, ANEU, GFR, BMP #### [address] [address] Eosinophils/100 WBC (Bld) 2.1 % Normal 0.0-6.0 [facility] MAIN Comment on above: Performed By: #### A DIFF, CBC, ANEU, GFR, BMP #### [address] [address] Lymphocyte, Absolute 1.9 10 3/mcL Normal 0.9-4.3 [facility] MAIN Comment on above: Performed By: #### A DIFF, CBC, ANEU, GFR, BMP #### [address] [address] Lymphocytes/100 WBC (Bld) 14.8 % Low 20.0-40.0 [facility] MAIN Comment on above: Performed By: #### A DIFF, CBC, ANEU, GFR, BMP #### [address] [address] Monocyte, Absolute 1.2 10 3/mcL Normal 0.1-1.4 [facility] MAIN Comment on above: Performed By: #### A DIFF, CBC, ANEU, GFR, BMP #### [address] [address] Monocytes/100 WBC (Bld) 9.8 % Normal 2.0-13.0 [facility] MAIN Comment on above: Performed By: #### A DIFF, CBC, ANEU, GFR, BMP #### [address] [address] Neutrophils/100 WBC (Bld) 72.6 % Normal 50.0-75.0 [facility] MAIN Comment on above: Performed By: #### A DIFF, CBC, ANEU, GFR, BMP #### [address] [address] .GFRon 08-16-2024 Estimated Glomerular Filtration Rate 58 ml/min/1.73sqm Normal [facility] MAIN Comment on above: Result [...] A DIFF, CBC, ANEU, GFR, BMP #### [address] [address] .NEUABSon 08-16-2024 Neutrophil, Absolute 9.2 10 3/mcL High 2.3-8.1 [facility] MAIN Comment on above: Performed By: #### A DIFF, CBC, ANEU, GFR, BMP #### [address] [address] BMPon 08-16-2024 BUN/Creatinine Ratio 34.3 ratio High 10.0-22.0 [facility] MAIN Comment on above: Performed By: #### A DIFF, CBC, ANEU, GFR, BMP #### [address] [address] Calcium [Mass/Vol] 9.0 mg/dL Normal 8.7-10.4 [facility] MAIN Comment on above: Performed By: #### A DIFF, CBC, ANEU, GFR, BMP #### [address] [address] Chloride [Moles/Vol] 100 mmol/L Normal 98-110 [facility] MAIN Comment on above: Performed By: #### A DIFF, CBC, ANEU, GFR, BMP #### [address] [address] CO2 [Moles/Vol] 30 mmol/L Normal 22-32 [facility] MAIN Comment on above: Performed By: #### A DIFF, CBC, ANEU, GFR, BMP #### [place] [id number] Creatinine [Mass/Vol] 0.99 mg/dL Normal 0.50-1.20 [facility] MAIN Comment on above: Result Comment: Test ing performed on SecureWave analyzer using enzymatic creatinine methodology. Performed By: #### A DIFF, CBC, ANEU, GFR, BMP #### [place] [id number] Electrolyte Balance 5.0 mEq/L Normal 4.0-15.0 [facility] MAIN Comment on above: Performed By: #### A DIFF, CBC, ANEU, GFR, BMP #### [place] [address] Glucose [Mass/Vol] 259 mg/dL High 82-115 [facility] MAIN Comment on above: Performed By: #### A DIFF, CBC, ANEU, GFR, BMP #### [place] [address] Potassium [Moles/Vol] 5.0 mmol/L Normal 3.5-5.0 [facility] MAIN Comment on above: Performed By: #### A DIFF, CBC, ANEU, GFR, BMP #### [place] [address] Sodium [Moles/Vol] 135 mmol/L Low 136-145 [facility] MAIN Comment on above: Performed By: #### A DIFF, CBC, ANEU, GFR, BMP #### [place] [address] Urea nitrogen [Mass/Vol] 34.0 mg/dL High 8.0-22.0 [facility] MAIN Comment on above: Performed By: #### A DIFF, CBC, ANEU, GFR, BMP #### [place] [id number] CBCon 08-16-2024 Erythrocyte distribution width (RBC) [Ratio] 13.7 % Normal 11.5-15.5 [facility] MAIN Comment on above: Performed By: #### A DIFF, CBC, ANEU, GFR, BMP #### [place] [id number] Hematocrit (Bld) [Volume fraction] 43.3 % Normal 34.0-46.0 [facility] MAIN Comment on above: Performed By: #### A DIFF, CBC, ANEU, GFR, BMP #### [place] [address] Hgb 13.9 G/dL Normal 12.0-16.0 [facility] MAIN Comment on above: Performed By: #### A DIFF, CBC, ANEU, GFR, BMP #### [place] [address] MCH (RBC) [Entitic mass] 30.0 pg Normal 27.0-33.0 [facility] MAIN Comment on above: Performed By: #### A DIFF, CBC, ANEU, GFR, BMP #### [place] [address] MCHC 32.1 G/dL Normal 32.0-36.0 [facility] MAIN Comment on above: Performed By: #### A DIFF, CBC, ANEU, GFR, BMP #### [place] [address] MCV (RBC) [Entitic vol] 93.6 fL Normal 80.0-99.0 [facility] MAIN Comment on above: Performed By: #### A DIFF, CBC, ANEU, GFR, BMP #### [place] [address] Platelet 230 10 3/mcL Normal 150-450 [facility] MAIN Comment on above: Performed By: #### A DIFF, CBC, ANEU, GFR, BMP #### [place] [address] Platelet mean volume (Bld) [Entitic vol] 10.7 fL High 6.6-10.5 [facility] MAIN Comment on above: Performed By: #### A DIFF, CBC, ANEU, GFR, BMP #### [place] [address] RBC 4.63 10 6/mcL Normal 4.10-5.30 [facility] MAIN Comment on above: Performed By: #### A DIFF, CBC, ANEU, GFR, BMP #### [address] [address] WBC 12.7 10 3/mcL High 4.5-10.8 [facility] MAIN Comment on above: Performed By: #### A DIFF, CBC, ANEU, GFR, BMP #### [address] [address] LABORATORYOrdered By: Marily Panda on 08-16-2024 Blood Glucose Interventions Administered agent to decrease blood sugar (08/16/24 12:23 PM) [facility] Work Phone: Blood Glucose Interventions Retest (08/16/24 10:15 AM) [facility] [employer] Work Phone: Bacteria identified Cx Nom ( Bld)on 08-15-2024 Bacteria identified Cx Nom (Unsp spec) NO GROWTH DAY 5 OF [facility] CARDIAC RHYTHMon 08-15-2024 [facility] CBC,PLATELETSon 08-15-2024 Erythrocyte distribution width (RBC) [Ratio] 13.4 % 10.8 - 14.9 % [facility] Hematocrit (Bld) [Volume fraction] 43.8 % 34.9 - 44.3 % [facility] Hemoglobin (Bld) [Mass/Vol] 13.5 g/dL 11.4 - 15.2 g/dL [facility] Interpretation and review of laboratory results Abnormal [facility] MCH (RBC) [Entitic mass] 28.9 pg 25.9 - 33.9 pg [facility] MCHC (RBC) [Mass/Vol] 30.8 g/dL Low 31.4 - 35.9 g/dL [facility] MCV (RBC) [Entitic vol] 93.8 fL 79.6 - 97.7 fL [facility] Platelet mean volume (Bld) [Entitic vol] 12 fL 8.5 - 12.2 fL [facility] Platelets (Bld) [#/Vol] 252 10*3/uL 150 - 393 K/uL [facility] RBC (Bld) [#/Vol] 4.67 10*6/uL [facility] WBC (Bld) [#/Vol] 11.94 10*3/uL High 3.99 - 11.19 K/uL [facility] Hematocrit (Bld) [Volume fraction] 43.8 % Normal 34.9-44.3 [facility] Comment on above: Performed By: #### X M #### [facility] (DEFAULT) [address] [address] Hemoglobin (Bld) [Mass/Vol] 13.5 g/dL Normal 11.4-15.2 [facility] Comment on above: Performed By: #### X M #### [facility] (DEFAULT) [address] [address] MCV (RBC) [Entitic vol] 93.8 fL Normal 79.6-97.[address] [facility] Comment on above: Performed By: #### X M #### [facility] (DEFAULT) [address] [address] Mean Cell Hgb 28.9 pg Normal 25.9-33.9 [facility] Comment on above: Performed By: #### X M #### [facility] (DEFAULT) [address] [address] Mean Cell Hgb Conc 30.8 g/dL Low 31.4-35.9 [facility] Comment on above: Performed By: #### X M #### [facility] (DEFAULT) [address] [address] Platelet mean volume (Bld) [Entitic vol] 12.0 fL Normal 8.5-12.2 [facility] Comment on above: Performed By: #### X M #### [facility] (DEFAULT) [address] [address] Platelets (Bld) [#/Vol] 252 10*3/uL Normal 150-393 [facility] Comment on above: Performed By: #### X M #### [facility] (DEFAULT) [address] [place] [address] RBC (Bld) [#/Vol] 4.67 10*6/uL Normal 3.91-5.04 [facility] Comment on above: Performed By: #### X M #### [facility] (DEFAULT) [address] [place] [address] RBC Distribution 13.4 % Normal 10.8-14.9 [facility] Comment on above: Performed By: #### X M #### [facility] (DEFAULT) [address] [place] [address] WBC (Bld) [#/Vol] 11.94 10*3/uL High 3.99-11.19 [facility] Comment on above: Performed By: #### X M #### [facility] (DEFAULT) [address] [place] [address] CHEM 7 (LYTES,BUN,CREA,GLUC) on 08-15-2024 Anion gap [Moles/Vol] 16 mmol/L 7 - 17 mmol/L [facility] Chloride [Moles/Vol] 99 mmol/L 98 - 10 8 mmol/L [facility] CO2 [Moles/Vol] 25 mmol/L 21 - 31 mmol/L [facility] Creatinine [Mass/Vol] 1.27 mg/dL High 0.50 - 1.20 mg/dL [facility] eGFR, CKD-EPI, Female 43 Low - PINF [facility] Glucose [Mass/Vol] 214 mg/dL High 70 - 179 mg/dL [facility] Interpretation and review of laboratory results Abnormal [facility] Osmolality Calc [Osmolality] 306 High [facility] Potassium [Moles/Vol] 4.8 mmol/L 3.5 - 5.0 mmol/L [facility] Sodium [Moles/Vol] 135 mmol/L 135 - 145 mmol/L [facility] Urea nitrogen [Mass/Vol] 51 mg/dL High 7 - 25 mg/dL [facility] Urea nitrogen/Creatinine [Mass ratio] 40 mg/mg [facility] Anion gap [Moles/Vol] 16 mmol/L Normal 7-17 [facility] Comment on above: Performed By: #### H EMO #### U [facility] (DEFAULT) [address] [place] [address] Chloride [Moles/Vol] 99 mmol/L Normal 98-108 [facility] Comment on above: Performed By: #### H EMO #### [facility] (DEFAULT) [address] [place] [address] CO2 [Moles/Vol] 25 mmol/L Normal 21-31 [facility] Comment on above: Performed By: #### H EMO #### [facility] (DEFAULT) [address] [place] [address] Creatinine [Mass/Vol] 1.27 mg/dL High 0.50-1.20 [facility] Comment on above: Performed By: #### H [facility] #### [facility] (DEFAULT) [address] [address] GFR/1.73 sq M.predicted among non-blacks MDRD (S/P/Bld) [Vol rate/Area] 43 mL/min/{1.73_m2} Low >=60 [facility] Comment on above: Result Comment: Repo rted eGFR is based on the CKD-EPI 2020 equation using creatinine, age, and sex. Performed By: #### H EMO #### [facility] (DEFAULT) [address] [place] [address] Glucose [Mass/Vol] 214 mg/dL High Nonfastin -179 mg/dL; Fastin-99 [facility] Comment on above: Performed By: #### H EMOGC #### [facility] (DEFAULT) [address] [place] [address] Osmolality [Osmolality] 306 mosm/kg High 278-305 [facility] Comment on above: Performed By: #### H EMOGC #### [facility] (DEFAULT) [address] [place] [address] Potassium [Moles/Vol] 4.8 mmol/L Normal 3.5-5.0 [facility] Comment on above: Performed By: #### H EMOGC #### [facility] (DEFAULT) [address] [place] [address] Sodium [Moles/Vol] 135 mmol/L Normal 135-145 [facility] Comment on above: Performed By: #### H EMOGC #### [facility] (DEFAULT) [address] [place] [address] Urea nitrogen [Mass/Vol] 51 mg/dL High 7-25 [facility] Comment on above: Performed By: #### H EMOGC #### [facility] (DEFAULT) [address] [place] [address] Urea nitrogen/Creatinine [Mass ratio] 40 mg/mg Normal [facility] Comment on above: Performed By: #### H EMOGC #### [facility] (DEFAULT) [address] [place] [address] GLUCOSE POCon 08-15-2024 Glucose [Mass/Vol] 190 mg/dL High 70 - 179 mg/dL [facility] Interpretation and review of laboratory results Abnormal [facility] POC [facility] Glucose [Mass/Vol] 146 mg/dL 70 - 179 mg/dL [facility] POC Sample [facility] Glucose [Mass/Vol] 215 mg/dL High 70 - 179 mg/dL [facility] Interpretation and review of laboratory results Abnormal [facility] POC Sample Type [facility] MAGNESIUMon 08-15-2024 Interpretation and review of laboratory results Normal [facility] Magnesium [Mass/Vol] 1.6 mg/dL 1.6 - 2 .6 mg/dL [facility] Magnesium [Mass/Vol] 1.6 mg/dL Normal 1.6-2.6 [facility] Comment on above: Performed By: #### H [facility] #### [facility] (DEFAULT) [address] [place] [address] No Panel Informationon 08-15 [facility] CBC,PLATELETSon 08-14-2024 Erythrocyte distribution width (RBC) [Ratio] 13.4 % 10.8 - 14.9 % [facility] Hematocrit (Bld) [Volume fraction] 47.9 % High 34.9 - 44.3 % [facility] Hemoglobin (Bld) [Mass/Vol] 14.3 g/dL 11.4 - 15.2 g/dL [facility] Interpretation and review of laboratory results Abnormal [facility] MCH (RBC) [Entitic mass] 29.3 pg 25.9 - 33.9 pg [facility] MCHC (RBC) [Mass/Vol] 29.9 g/dL Low 31.4 - 35.9 g/dL [facility] MCV (RBC) [Entitic vol] 98.2 fL High 79.6 - 97.7 fL [facility] Platelet mean volume (Bld) [Entitic vol] 11.3 fL 8.5 - 12.2 fL [facility] Platelets (Bld) [#/Vol] 229 10*3/uL 150 - 393 K/uL [facility] RBC (Bld) [#/Vol] 4.88 10*6/uL [facility] WBC (Bld) [#/Vol] 12.14 10*3/uL High 3.99 - 11.19 K/uL [facility] Hematocrit (Bld) [Volume fraction] 47.9 % High 34.9-44.3 [facility] Comment on above: Performed By: #### X M #### [facility] (DEFAULT) [address] [place] [address] Hemoglobin (Bld) [Mass/Vol] 14.3 g/dL Normal 11.4-15.2 [facility] Comment on above: Performed By: #### X M #### [facility] (DEFAULT) [address] [place] [address] MCV (RBC) [Entitic vol] 98.2 fL High 79.6-97.[address] [facility] Comment on above: Performed By: #### X M #### [facility] (DEFAULT) [address] [place] [address] Mean Cell Hgb 29.3 pg Normal 25.9-33.9 [facility] Comment on above: Performed By: #### X M #### [facility] (DEFAULT) [address] [place] [address] Mean Cell Hgb Conc 29.9 g/dL Low 31.4-35.9 [facility] Comment on above: Performed By: #### X M #### [facility] (DEFAULT) [address] [place] [address] Platelet mean volume (Bld) [Entitic vol] 11.3 fL Normal 8.5-12.2 [facility] Comment on above: Performed By: #### X M #### [facility] (DEFAULT) [address] [place] [address] Platelets (Bld) [#/Vol] 229 10*3/uL Normal 150-393 [facility] Comment on above: Performed By: #### X M #### [facility] (DEFAULT) [address] [place] [address] RBC (Bld) [#/Vol] 4.88 10*6/uL Normal 3.91-5.04 [facility] Comment on above: Performed By: #### X M #### [facility] (DEFAULT) [address] [place] [address] RBC Distribution 13.4 % Normal 10.8-14.9 [facility] Comment on above: Performed By: #### X M #### [facility] (DEFAULT) [address] [place] [address] WBC (Bld) [#/Vol] 12.14 10*3/uL High 3.99-11.19 [facility] Comment on above: Performed By: #### X M #### [facility] (DEFAULT) [address] [place] [address] CHEM 7 (LYTES,BUN,CREA,GLUC) on 08-14-2024 Anion gap [Moles/Vol] 16 mmol/L 7 - 17 mmol/L [facility] Chloride [Moles/Vol] 101 mmol/L 98 - 10 8 mmol/L [facility] CO2 [Moles/Vol] 23 mmol/L 21 - 31 mmol/L [facility] Creatinine [Mass/Vol] 1.15 mg/dL 0.50 - 1.20 mg/dL [facility] eGFR, CKD-EPI, Female 48 Low - PINF [facility] Glucose [Mass/Vol] 208 mg/dL High 70 - 179 mg/dL [facility] Interpretation and review of laboratory results Abnormal [facility] Osmolality Calc [Osmolality] 304 [facility] Potassium [Moles/Vol] 4.7 mmol/L 3.5 - 5.0 mmol/L [facility] Sodium [Moles/Vol] 135 mmol/L 135 - 145 mmol/L [facility] Urea nitrogen [Mass/Vol] 47 mg/dL High 7 - 25 mg/dL [facility] Urea nitrogen/Creatinine [Mass ratio] 41 mg/mg [facility] Anion gap [Moles/Vol] 16 mmol/L Normal 7-17 [facility] Comment on above: Performed By: #### B LDCULT #### [facility] (DEFAULT) [address] [place] [address] Chloride [Moles/Vol] 101 mmol/L Normal 98-108 [facility] Comment on above: Performed By: #### B LDCULT #### [facility] (DEFAULT) [address] [place] [address] CO2 [Moles/Vol] 23 mmol/L Normal 21-31 [facility] Comment on above: Performed By: #### B LDCULT #### [facility] (DEFAULT) [address] [place] [address] Creatinine [Mass/Vol] 1.15 mg/dL Normal 0.50-1.20 [facility] Comment on above: Performed By: #### B LDCULT #### [facility] (DEFAULT) [address] [place] [address] GFR/1.73 sq M.predicted among non-blacks MDRD (S/P/Bld) [Vol rate/Area] 48 mL/min/{1.73_m2} Low >=60 [facility] Comment on above: Result Comment: Repo rted eGFR is based on the CKD-EPI 2020 equation using creatinine, age, and sex. Performed By: #### B LDCULT #### [facility] (DEFAULT) [address] [place] [address] Glucose [Mass/Vol] 208 mg/dL High Nonfastin -179 mg/dL; Fastin-99 [facility] Comment on above: Performed By: #### B LDCULT #### [facility] (DEFAULT) [address] [place] [address] Osmolality [Osmolality] 304 mosm/kg Normal 278-305 [facility] Comment on above: Performed By: #### B LDCULT #### U [facility] (DEFAULT) [address] [place] [address] Potassium [Moles/Vol] 4.7 mmol/L Normal 3.5-5.0 [facility] Comment on above: Performed By: #### B LDCULT #### U [facility] (DEFAULT) [address] [place] [address] Sodium [Moles/Vol] 135 mmol/L Normal 135-145 [facility] Comment on above: Performed By: #### B LDCULT #### [facility] (DEFAULT) [address] [place] [address] Urea nitrogen [Mass/Vol] 47 mg/dL High 7-25 [facility] Comment on above: Performed By: #### B LDCULT #### [facility] (DEFAULT) [address] [place] [address] Urea nitrogen/Creatinine [Mass ratio] 41 mg/mg Normal [facility] Comment on above: Performed By: #### B LDCULT #### [facility] (DEFAULT) [address] [place] [address] GLUCOSE POCon 08-14-2024 Glucose [Mass/Vol] 204 mg/dL High 70 - 179 mg/dL [facility] Interpretation and review of laboratory results Abnormal [facility] Glucose [Mass/Vol] 264 mg/dL High 70 - 179 mg/dL [facility] Interpretation and review of laboratory results Abnormal [facility] Glucose [Mass/Vol] 189 mg/dL High 70 - 179 mg/dL [facility] Interpretation and review of laboratory results Abnormal [facility] MAGNESIUMon 08-14-2024 Interpretation and review of laboratory results Normal [facility] Magnesium [Mass/Vol] 1.6 mg/dL 1.6 - 2 .6 mg/dL [facility] Magnesium [Mass/Vol] 1.6 mg/dL Normal 1.6-2.6 [facility] Comment on above: Performed By: #### B LDCULT #### [facility] (DEFAULT) [address] [address] No Panel Informationon 08-14 [facility] CBC,PLATELETSon 08-13-2024 Erythrocyte distribution width (RBC) [Ratio] 13.4 % 10.8 - 14.9 % [facility] Hematocrit (Bld) [Volume fraction] 45.7 % High 34.9 - 44.3 % [facility] Hemoglobin (Bld) [Mass/Vol] 14.3 g/dL 11.4 - 15.2 g/dL [facility] Interpretation and review of laboratory results Abnormal [facility] MCH (RBC) [Entitic mass] 29.5 pg 25.9 - 33.9 pg [facility] MCHC (RBC) [Mass/Vol] 31.3 g/dL Low 31.4 - 35.9 g/dL [facility] MCV (RBC) [Entitic vol] 94.2 fL 79.6 - 97.7 fL [facility] Platelet mean volume (Bld) [Entitic vol] 11.7 fL 8.5 - 12.2 fL [facility] Platelets (Bld) [#/Vol] 245 10*3/uL 150 - 393 K/uL [facility] RBC (Bld) [#/Vol] 4.85 10*6/uL [facility] WBC (Bld) [#/Vol] 12.02 10*3/uL High 3.99 - 11.19 K/uL [facility] Hematocrit (Bld) [Volume fraction] 45.7 % High 34.9-44.3 [facility] Comment on above: Performed By: #### H [facility] #### [facility] (DEFAULT) [address] [address] Hemoglobin (Bld) [Mass/Vol] 14.3 g/dL Normal 11.4-15.2 [facility] Comment on above: Performed By: #### H [facility] #### [facility] (DEFAULT) [address] [address] MCV (RBC) [Entitic vol] 94.2 fL Normal 79.6-97.[address] [facility] Comment on above: Performed By: #### H EMOGC #### U [facility] (DEFAULT) [address] [address] Mean Cell Hgb 29.5 pg Normal 25.9-33.9 [facility] Comment on above: Performed By: #### H EMOGC #### [facility] (DEFAULT) [address] [address] Mean Cell Hgb Conc 31.3 g/dL Low 31.4-35.9 [facility] Comment on above: Performed By: #### H EMOGC #### [place] [facility] (DEFAULT) [address] [address] Platelet mean volume (Bld) [Entitic vol] 11.7 fL Normal 8.5-12.2 [facility] Comment on above: Performed By: #### H EMOGC #### [facility] (DEFAULT) [address] [address] Platelets (Bld) [#/Vol] 245 10*3/uL Normal 150-393 [facility] Comment on above: Performed By: #### H EMOGC #### [facility] (DEFAULT) [address] [address] RBC (Bld) [#/Vol] 4.85 10*6/uL Normal 3.91-5.04 [facility] Comment on above: Performed By: #### H EMOGC #### [facility] (DEFAULT) [address] [address] RBC Distribution 13.4 % Normal 10.8-14.9 [facility] Comment on above: Performed By: #### H EMOGC #### [facility] (DEFAULT) [address] [address] WBC (Bld) [#/Vol] 12.02 10*3/uL High 3.99-11.19 [facility] Comment on above: Performed By: #### H [facility] #### [facility] (DEFAULT) [address] [place] [address] CHEM 7 (LYTES,BUN,CREA,GLUC) on 08-13-2024 Anion gap [Moles/Vol] 15 mmol/L 7 - 17 mmol/L [facility] Chloride [Moles/Vol] 104 mmol/L 98 - 10 8 mmol/L [facility] CO2 [Moles/Vol] 23 mmol/L 21 - 31 mmol/L [facility] Creatinine [Mass/Vol] 1.18 mg/dL 0.50 - 1.20 mg/dL [facility] eGFR, CKD-EPI, Female 47 Low - PINF [facility] Glucose [Mass/Vol] 225 mg/dL High 70 - 179 mg/dL [facility] Interpretation and review of laboratory results Abnormal [facility] Osmolality Calc [Osmolality] 311 High [facility] Potassium [Moles/Vol] 4.6 mmol/L 3.5 - 5.0 mmol/L [facility] Sodium [Moles/Vol] 137 mmol/L 135 - 145 mmol/L [facility] Urea nitrogen [Mass/Vol] 55 mg/dL High 7 - 25 mg/dL [facility] Urea nitrogen/Creatinine [Mass ratio] 47 mg/mg [facility] Anion gap [Moles/Vol] 15 mmol/L Normal 7-17 [facility] Comment on above: Performed By: #### H [facility] #### [facility] (DEFAULT) [address] [place] [address] Chloride [Moles/Vol] 104 mmol/L Normal 98-108 [facility] Comment on above: Performed By: #### H [facility] #### [facility] (DEFAULT) [address] [place] [address] CO2 [Moles/Vol] 23 mmol/L Normal 21-31 [facility] Comment on above: Performed By: #### H [facility] #### [facility] (DEFAULT) [address] [place] [address] Creatinine [Mass/Vol] 1.18 mg/dL Normal 0.50-1.20 [facility] Comment on above: Performed By: #### H EMOGC #### [facility] (DEFAULT) [address] [place] [address] GFR/1.73 sq M.predicted among non-blacks MDRD (S/P/Bld) [Vol rate/Area] 47 mL/min/{1.73_m2} Low >=60 [facility] Comment on above: Result Comment: Repo rted eGFR is based on the CKD-EPI 2020 equation using creatinine, age, and sex. Performed By: #### H EMO #### [facility] (DEFAULT) [address] [place] [address] Glucose [Mass/Vol] 225 mg/dL High Nonfastin -179 mg/dL; Fastin-99 [facility] Comment on above: Performed By: #### H EMO #### [facility] (DEFAULT) [address] [place] [address] Osmolality [Osmolality] 311 mosm/kg High 278-305 [facility] Comment on above: Performed By: #### H EMOGC #### [facility] (DEFAULT) [address] [place] [address] Potassium [Moles/Vol] 4.6 mmol/L Normal 3.5-5.0 [facility] Comment on above: Performed By: #### H EMOGC #### [facility] (DEFAULT) [address] [place] [address] Sodium [Moles/Vol] 137 mmol/L Normal 135-145 [facility] Comment on above: Performed By: #### H EMOGC #### [facility] (DEFAULT) [address] [place] [address] Urea nitrogen [Mass/Vol] 55 mg/dL High 7-25 [facility] Comment on above: Performed By: #### H [facility] #### [facility] (DEFAULT) [address] [place] [address] Urea nitrogen/Creatinine [Mass ratio] 47 mg/mg Normal [facility] Comment on above: Performed By: #### H [facility] #### [facility] (DEFAULT) [address] [place] [address] GLUCOSE POCon 08-13-2024 Glucose [Mass/Vol] 195 mg/dL High 70 - 179 mg/dL [facility] Interpretation and review of laboratory results Abnormal [facility] POC Sample Type CAPBL [facility] Glucose [Mass/Vol] 198 mg/dL High 70 - 179 mg/dL [facility] Interpretation and review of laboratory results Abnormal [facility] POC Sample Type [facility]BL [facility] Glucose [Mass/Vol] 158 mg/dL 70 - 179 mg/dL [facility] POC Sample Type CAPBL [facility] Glucose [Mass/Vol] 211 mg/dL High 70 - 179 mg/dL [facility] Interpretation and review of laboratory results Abnormal [facility] POC Sample Type CAPBL [facility] Glucose [Mass/Vol] 240 mg/dL High 70 - 179 mg/dL [facility] Interpretation and review of laboratory results Abnormal [facility] POC Sample Type CAPBL [facility] MAGNESIUMon 08-13-2024 Interpretation and review of laboratory results Normal [facility] Magnesium [Mass/Vol] 1.8 mg/dL 1.6 - 2 .6 mg/dL [facility] Magnesium [Mass/Vol] 1.8 mg/dL Normal 1.6-2.6 [facility] Comment on above: Performed By: #### H [facility] #### [facility] (DEFAULT) [address] [place] [address] No Panel Informationon 08-13 [facility] CBC,PLATELETSon 08-12-2024 Erythrocyte distribution width (RBC) [Ratio] 13.6 % 10.8 - 14.9 % [facility] Hematocrit (Bld) [Volume fraction] 45.1 % High 34.9 - 44.3 % [facility] Hemoglobin (Bld) [Mass/Vol] 14.3 g/dL 11.4 - 15.2 g/dL [facility] Interpretation and review of laboratory results Abnormal [facility] MCH (RBC) [Entitic mass] 29.7 pg 25.9 - 33.9 pg [facility] MCHC (RBC) [Mass/Vol] 31.7 g/dL 31.4 - 35.9 g/dL [facility] MCV (RBC) [Entitic vol] 93.6 fL 79.6 - 97.7 fL [facility] Platelet mean volume (Bld) [Entitic vol] 11.4 fL 8.5 - 12.2 fL [facility] Platelets (Bld) [#/Vol] 241 10*3/uL 150 - 393 K/uL [facility] RBC (Bld) [#/Vol] 4.82 10*6/uL [facility] WBC (Bld) [#/Vol] 14.32 10*3/uL High 3.99 - 11.19 K/uL [facility] Hematocrit (Bld) [Volume fraction] 45.1 % High 34.9-44.3 [facility] Comment on above: Performed By: #### H [facility] #### [facility] (DEFAULT) [address] [place] [address] Hemoglobin (Bld) [Mass/Vol] 14.3 g/dL Normal 11.4-15.2 [facility] Comment on above: Performed By: #### H [facility] #### U [facility] (DEFAULT) [address] [place] [address] MCV (RBC) [Entitic vol] 93.6 fL Normal 79.6-97.[address] [facility] Comment on above: Performed By: #### H EMOGC #### U [facility] (DEFAULT) [address] [place] [address] Mean Cell Hgb 29.7 pg Normal 25.9-33.9 [facility] Comment on above: Performed By: #### H EMOGC #### [facility] (DEFAULT) [address] [place] [address] Mean Cell Hgb Conc 31.7 g/dL Normal 31.4-35.9 [facility] Comment on above: Performed By: #### H EMO #### [facility] (DEFAULT) [address] [place] [address] Platelet mean volume (Bld) [Entitic vol] 11.4 fL Normal 8.5-12.2 [facility] Comment on above: Performed By: #### H EMO #### [facility] (DEFAULT) [address] [address] Platelets (Bld) [#/Vol] 241 10*3/uL Normal 150-393 [facility] Comment on above: Performed By: #### H EMOGC #### [facility] (DEFAULT) [address] [place] [address] RBC (Bld) [#/Vol] 4.82 10*6/uL Normal 3.91-5.04 [facility] Comment on above: Performed By: #### H EMOGC #### [facility] (DEFAULT) [address] [address] RBC Distribution 13.6 % Normal 10.8-14.9 [facility] Comment on above: Performed By: #### H EMOGC #### [place] [facility] (DEFAULT) [address] [place] [address] WBC (Bld) [#/Vol] 14.32 10*3/uL High 3.99-11.19 [facility] Comment on above: Performed By: #### H [facility] #### [facility] (DEFAULT) [address] [place] [address] CHEM 7 (LYTES,BUN,CREA,GLUC) on 08-12-2024 Anion gap [Moles/Vol] 15 mmol/L 7 - 17 mmol/L [facility] Chloride [Moles/Vol] 104 mmol/L 98 - 10 8 mmol/L [facility] CO2 [Moles/Vol] 27 mmol/L 21 - 31 mmol/L [facility] Creatinine [Mass/Vol] 1.36 mg/dL High 0.50 - 1.20 mg/dL [facility] eGFR, CKD-EPI, Female 40 Low - PINF [facility] Glucose [Mass/Vol] 126 mg/dL 70 - 179 mg/dL [facility] Interpretation and review of laboratory results Abnormal [facility] Osmolality Calc [Osmolality] 313 High [facility] Potassium [Moles/Vol] 4.5 mmol/L 3.5 - 5.0 mmol/L [facility] Sodium [Moles/Vol] 141 mmol/L 135 - 145 mmol/L [facility] Urea nitrogen [Mass/Vol] 56 mg/dL High 7 - 25 mg/dL [facility] Urea nitrogen/Creatinine [Mass ratio] 41 mg/mg [facility] Anion gap [Moles/Vol] 15 mmol/L Normal 7-17 [facility] Comment on above: Performed By: #### T YPEC #### [facility] (DEFAULT) [address] [place] [address] Chloride [Moles/Vol] 104 mmol/L Normal 98-108 [facility] Comment on above: Performed By: #### T YPEC #### [facility] (DEFAULT) [address] [place] [address] CO2 [Moles/Vol] 27 mmol/L Normal 21-31 [facility] Comment on above: Performed By: #### T YPEC #### U [facility] (DEFAULT) [address] [address] Creatinine [Mass/Vol] 1.36 mg/dL High 0.50-1.20 [facility] Comment on above: Performed By: #### T YPEC #### U [facility] (DEFAULT) [address] [address] GFR/1.73 sq M.predicted among non-blacks MDRD (S/P/Bld) [Vol rate/Area] 40 mL/min/{1.73_m2} Low >=60 [facility] Comment on above: Result Comment: Repo rted eGFR is based on the CKD-EPI 2020 equation using creatinine, age, and sex. Performed By: #### T YPEC #### [facility] (DEFAULT) [address] [address] Glucose [Mass/Vol] 126 mg/dL Normal Nonfastin -179 mg/dL; Fastin-99 [facility] Comment on above: Performed By: #### T YPEC #### [facility] (DEFAULT) [address] [address] Osmolality [Osmolality] 313 mosm/kg High 278-305 [facility] Comment on above: Performed By: #### T YPEC #### [facility] (DEFAULT) [address] [address] Potassium [Moles/Vol] 4.5 mmol/L Normal 3.5-5.0 [facility] Comment on above: Performed By: #### T YPEC #### [facility] (DEFAULT) [address] [address] Sodium [Moles/Vol] 141 mmol/L Normal 135-145 [facility] Comment on above: Performed By: #### T YPEC #### [facility] (DEFAULT) [address] [place] [address] Urea nitrogen [Mass/Vol] 56 mg/dL High 7-25 [facility] Comment on above: Performed By: #### T YPEC #### [facility] (DEFAULT) [address] [place] [address] Urea nitrogen/Creatinine [Mass ratio] 41 mg/mg Normal [facility] Comment on above: Performed By: #### T YPEC #### [facility] (DEFAULT) [address] [place] [address] GLUCOSE POCon 08-12-2024 Glucose [Mass/Vol] 231 mg/dL High 70 - 179 mg/dL [facility] Interpretation and review of laboratory results Abnormal [facility] POC Sample Type CAPBL [facility] Glucose [Mass/Vol] 208 mg/dL High 70 - 179 mg/dL [facility] Interpretation and review of laboratory results Abnormal [facility] POC Sample Type CAPBL [facility] Glucose [Mass/Vol] 160 mg/dL 70 - 179 mg/dL [facility] POC Sample Type CAPBL [facility] Glucose [Mass/Vol] 107 mg/dL 70 - 179 mg/dL [facility]-12-2024 Interpretation and review of laboratory results Normal [facility] Magnesium [Mass/Vol] 2.2 mg/dL 1.6 - 2 .6 mg/dL [facility] Magnesium [Mass/Vol] 2.2 mg/dL Normal 1.6-2.6 [facility] Comment on above: Performed By: #### T YPEC #### [facility] (DEFAULT) [address] [place] [address] No Panel Informationon 08-12 [facility] SURG PATH REQUESTOrdered By: Renae Glez on 08-12-2024 Case Report [facility] Clinical History f8kkjSSvSYWefTZcRNWt NVx ayqQsRBGuuYTbY8JpbvuwTL qnBU7mAL0frFuruFWifVBoQ YReRwDnn1kpt222bNLtu4vw AMTZsgpyeRe3qEhpE35xu6D 6ZyauX8oiNEMeATlrHNRkRV okqBCrLYf3WMJdwCFijqAsU pQbLVGrfZKttPS6OKQiPL6n sjypSHtiWTpmNUUeqmN3AUI lqXVtB1FxESZkUY6dbtcjUW E7SDpzQUTsQHV3ZzMoPCVjm 6Rxtiw9SzSitGu1g5rvFTSo RWEgwWdpl2gcBZA2RPCqcCX aV1wpkV7kEAKtZI8murraq4 fjDRayTAkdPNHwsTQ4ziM9M DXmcGLfD0JryC5iGLIlPWBd jgClmFappK7cFvLqBJgxNjZ eSt0JIRoXIcWzAJZfw8CdJI HwNCTKmHKvtf3clUC2ETBWx 30rLtFdRIXmnKCkeIQMeSY9 s5I3SyJnCy4exOBqrZTbjYC fdRQ5h2M6VCTam4HaVIHsSq xwYXJ9 [facility] For Immediate Release to Patient's MyChart? Yes Yes [facility] Gross Description v6senLXzLKSyn3ypLRQr bGF uZzEwMzNcZnRuYmpcdWMxIH tccnRmMVxlcGljMTExMDVcY Y3qqDgazQb4aCyyXTSmhwT7 qJThTAgtd1dsAMB0p9eblas zYHVeXRomRx0xkUBywGbxLy FzMCHlCCp0tA41RKUpbF1oj EGcCPpmvdJpOKHtR0NjDT1s AIlkwQDkMJP9wPbzSREhjhs nKyT7DIzcSYGlcuklICw9AV cuDXFexJX4WWCkwNYaK9RbC HDsCG3ikmj8JKE8PIhlXQIp TlP4QODgrQHrFPIyaChtSDz jl401OPI1KcGtLOHjzmPsoU dbrX3hRuCbVGLZiPOjx5RxD 2suVB3ajKCfccOoAPe5TNYd kD1ja78fLEYij3Gtqbt1MOv mEiRhBIAsJ32wzGRrzgXcRI dpdGggdGhlIHBhdGllbnQnc gXrZZ3aFEKeIYEyO7Wrw5Zs c13ifaOkXpVqJwWmaWRyNOH rnlomCwBwEAxvFaFzOoa9LJ IgVGhlIHNwZWNpbWVuIGlzI GVsh4eazkS9BSSxOsath9So zPCeIBOdwwQztPBmNW7iPCR bdcIno7TjGQ9hCPYbxjKlQa DnM17lanPnPF0lLNJhhp6sh Y6pQGExCjDveGlzm5RjRWEq fu9zYEGfMoI1qWX0qyJvHiZ pV54qqY1aW1QvNYYjb9EoXZ ocHF9rkV4vCoRoDZQbQUBxv PQsMJOhpoXIEFAqJLHvTE6v wFf1XAaeWvcHBGqlOcCtGRH 6PISidg23QGM4YjQsa9V4PB OmFuEbBVVnAN7ykSluSOGxN V2vUCLyX5lbgJ9axyh0EiCi ZRMsZgT7EOZuqaS5Pgi9UPB kPDwcu2fyr8KuVQMaPLl8rE akRyVaMXVsl2wrobEzNiDnV QEbHTRbGQCjjCBpT586g6ys y6qzyrNonLS2IJFeQLT5PXc rglIpnhH8HBckfGWlQdY6EN thaiEtYQtandChpiXyDth2S AZnY965HPI0kZiip2vwIPW4 RXBzYAZcRxHyLy0snWCiO67 0ZKHgJUPMHOCfuTk0DDIzdm ZdctUizIOZi986S893h5rbR VIgxeTlfUvCnjlrw1buA565 XHBhcGVydzEyMjQwXHBhcGV ltMA3FKBhLA9bxdnjNVipWE mkDIWcboJ1TSElbMKoF8HsZ CAwBD3luuouDLV5ZUdzFBEr PFR8UeWxMWHvl2Jtzsd2NmJ scu8htj18KYL8k8SqoWilTC N1IZF0XpGiDe0pcTNvJEEiP H4zIoXkgIQiQVPmav64vShp WJnpudTuwN3tVeJeADMoyVD zQONsWL6poSSxYTChvG6tdr xjXHBnYnJkcmhlYWRccGdic nEjZi3pwKelETM0JDacS7es sM8wMcV6HEbwG1dknG2iRBu 9HOzbgFK4IPSojT4iYD3iyz hnx0glPAtnVBgnSKWkfbE8d bW5EEVuqBOiB6MaeP9vTWHc KE4frzyco7mmLRD3GUfnZEQ sAFR4ZiVaPGFgh0Yallh9Ue Vdd5KyuAFbLIsbP35fy366J GJqpqSqC9jgmLVnlrkuiXZn upmxSAxnrlO5CIPgAVAoOKl uXGYxXGZzMjJcbGFuZzEwMz NcaGljaFxmMVxkYmNoXGYxX LpnJ8soSvJeSqKvIyQOia5e f1BcDHRjomR4lNrgSAQaz5A gm2XpFyLARTVlZ7XhLX1mpL YjDVTdge91 [facility] Microscopic Description l9xawVRpTSOzwCOm ZjIyMDA rXYOwl5zzEWNmgMNkGtGwVv NcZnRuYmpcdWMxXGRlZmYwe 8scq114bXXgy0riEHVyIrD6 yYCwGZLwpCWkD837DRLgVFt ke8slv9LwLVUrmYHro5L6IF SUkssyyLm0tHvsV04zw0T3S qmrR6ffHCAwJWVcP9XmEY6q XUOsCmq6YPP1IET6PHZwLWV mI9QiCG0sAADspXTgOUi2e1 gfhMqvZJKhRWW3a6hwPYwox oTmXY7tkr6pnAj4z1mndzLc JAYcULVdgODVJCHjY8RaaSk kVf5rwIb7uDuzMppeGTC7Rb a6CW2mjf16ysr9mVrgKETsj uouWlQ4KLloJITxnlkiBUh3 DFzgDYLkwBA5XOAalWJwT8B hLBUqXZ2fkfn6MIA4HTbpYI IgGiE2YJYatDAtFJMcxXvcL Atit509MIE2HuVmXD1aI6Us o3J2hM6emGAbNZEtyRNdKwV oYAGpea6cxQTmFCfwv6NkES Y5ibG8vVLatQXhYAOjCF52K llcy8ImAbqfVES6JGZawnAq b1Fbn7yfBpEizmYdP7dnD1L yZHJoZWFkXHBnYnJkcmZvb3 Ckz7LitGCmpJw8g5vfUZQxZ ZVlnOokz7vcBNF4VXDuD5A7 pJPwf7jdWJkbCCDdzNJ0yyW 3WITuuNQmQ1VplS9tCVOwDE 3npkq1u1ypYCR2BOojRJYnY mK1xfV2LBYecXHwNGIqpUiv OOeyc854YEQ7NiLmZFKlf4H uQ4AdcHvmO92kqAavK95mFR BboSsnaA0kbJmcsF9aMwNvK nMyNFxxbFxwbGFpblxmMVxm zmEdMMolewuaSSKwUDflZ2c fPhCxFBXhmYwlPKbxx1QkMJ MjRFCvLsOsGEIwzDXza2Mnp 0FuIbBvlXZwzW8zjNlxqoB7 ALPecDKhIm5ecNOlExOjdAQ yfQ== [facility] Pathologic Diagnosis y0hzpEEqPBZssVDvCTI wNVx ewjPuOSXykNUpM8BbhwiuDY rnER3nNO1ycExqiQTqqVXhE EXxBrTnq2ljt504iOXjk5pu NEBYoytmhOj7p0htEFILvO6 gc4r8nI76AZOxbG0dgTTfXR yzabKuJAjhwbMqgiMcLjm6X IF9aEbcGvjtvLE1dFZbyOD1 YEfqx1SrzBxhoYjlIERvWKL jCFN7U1uxcNO1rELwkQgysU PlBI2pe0fziTD7bkCnQQS0j UljdXA0mBsrkxcyw3xmbEM6 vSS2NGmhvNS6DUqgVvSmN9c oKKWphQ7hE20qH1cnDJCisA zsKBhpSSYwiJO4ACJ2USKkc 1xsZXZlbHRleHRcJzAxXCdi Nbj0d0pgWFHmoZ04tXDzusJ 7fVxmMVxmczIwXGxpMzYwXG ZpMTgwfXtcbGlzdGxldmVsX AylfcCeriZpRwUbqRJ9HRuv OxAoShGveVD6OCrsMiMeoDM 3BJrxlKHuzTH2QObauVF9ZR q5LMn2DPqjUPszCbr1gHkdq YN1RUxgoA1zLGCkS55iKgGj InReVE90NHxhu3RdCMHehEy yASFjqD1iFnUvTEaiuwPdqc ZjbjIzXGxldmVsamMwXGxld gTne7XxpkAmeDM6SMkcafNr wMI8xJpnXIBlP0J7H696EXk lizQjzxUgZcKsgtg6NPWsNQ SiMzH0e4corDA0xXJ3ZSkmq RY0TNznPtFpN1urAWWxtB5u Y05pT7icGGRnwLcmBKgwOVE fwVT8XMO7ZMQez1tsEWXwjX SfsLSjArCoTJctShz8d3rtT UMfzR25aKRhjfV1vHfcUFqy czIwfXtcbGlzdGxldmVsXGx gwhRooaDhGwWisFW4WEnfHp IgLlNkfKH0QNnpFcDltSI1B DfmxJSpbKR6XOtrsFG0LFb4 RNg3OVchIPyvIdf9vVeuvWI 8JOoenO9nSVNaJ49xNhRuKc RbPU07POfdk4VsMLPtsFhqZ XAwrU4eToUtUTjtfoTpeoYu bjIzXGxldmVsamMwXGxldmV py4QhtvCetSH8AYhjrsIgyF S1nItpEMAsG2D1L387ERavs pYjmxYyGqTlszg9RZUtTPLk YjN3x7bjvLJ9aNV7NPaewGS 6UBbqLdEoG4olLMExaU7zZ0 1vQ5euDKRyaRcsKNydOTVmm OY3UBD9VEEde1hsTCZbqCRv vXAtKsTyBGnnRhk4t4fcKFF vlI71sIZmabW6zFwrGGljsz IwfXtcbGlzdGxldmVsXGxld pHomqUqKgWrxMT3CDkcIaLm YhTmrQO6UNcfDeKiwMN9WYi qnPPnbBS1YTdbtYK8MDj2XN z0YWwxPMkzOjf0tFubbUI3C ClqeQ4bULCsA42sSdGuYhVm XF02DVntm3SeLQPxhRmxCMV irQ9eGaWzHZabgeRqmwVver IzXGxldmVsamMwXGxldmVsc 6MdjfNfiQD0VKccghNcbVM3 kXgmUKHxE5N1D146HDqawoT wjfNuWkUxdes0DWCiRBXxWw B8eZ48KXsykKbvtH57SVBlj JUevKVjyEP6SMgdnKfnjM62 WIIihYCdWUomk3OfWNJfFpB 9UpCcFGWhnBgmzK73PULzqT QzF055ooEpPHitYS65KBHza GVydzEyMjQwXHBhcGVyaDE1 KUWgVU0jtupwKQbyNMmoODP vawW4RPCpiZFzR1UsVDByMO 9mwenwOVE0WJlhQGEfJAV1Y vPfBQStj0Yecoz9LxZxmDRz UNxlpNMcxtjiSRKxPdWcK9I oJGJnUSA7y42vE8knZJAcs4 BzeTpccGFyXGxpMzYwXGZpM KdrVQtsgsG5BPfxgaZjaFx7 hEUriMbssE5fHgeltjJxLWU xEWVNb7XrtRYejw8thU5oPN SudbTUfoIEYFjfZ08dIDQ0W NEriNogo4DzPLsnQL75wOTi ZWRccGFyfQ== [facility] Professional Interpretation Performed at: b3lrnGTeBRAtlUXcKwAcJPZ jUBTen1lwJTIivBQfOtIeTj NcZnRuYmpcdWMxXGRlZmYwe 7wxs257bJImn8iaPJNaYzD5 dORcURAvyFIvC137NHPxZNd kq3hla6BxBTJwtKNwg5M9QM GQptpwrTl5xAnoH88ng8L2Z ybiE6rkHPIcHOLxD6KsQF7s YSLsGcj1FGB3OFI2XQXrPDS lF7BvUO3bJTVcdHBhMPv1q3 lnvThrQOZjDHC2r5csUZkqh dGcES6vhl4ojYk2x0inspNb ZWNkETKtmRGVORSsL4OmaBe gDy5kgGh3gAepSxsnOMN4We g4CR2yxz47moq0qWnyDDNay ujvKyN0NCwgLIOmyxxoBLc2 FJyaAXPaaNJ2DUGhmGOtK8Y tBWDtXO6nrnb6YPO9SPgwRI BzAzR3SAEdsBUuIVRxbTjoI Vqoy592ARW3ThXjWO2nR0Ab r0O1sJ4vjAFaOQSgkGUyVvJ uTTTsvr4fkUXmANdof6RiUO D8imK8jRPakCSvYVVtSC78L eamx7TkNvymRHS0PVXhgvQa v8Hbm8arKfKeqmSyR0fxZ9U yZHJoZWFkXHBnYnJkcmZvb3 Uql4YgjIIepVc9g7khGNWmM DIlkEuxl9owKDM3OFNfD0D4 mBEhf6mhKNsgZBSwdBB6cuY 3HXPquEVwO7OezL3zNWCkJT 1bwym9b5xuUUI7EIlmYDUlU lX4xuQ8QJBjgRRlHTSfrZtx FIrzj918AMD9VcFbXUIvp9R pC4TebDjmO38pqErtD69hQO EowDvtyL1hyOjsaZ6qPpKoL nMyNFxwYXJkXHBsYWluXGYx XGZzMjJcbGFuZzEwMzNcaGl jaFxmMVxkYmNoXGYxXGxvY2 ibHbFyGmYvCiSXB8WjD7NYY vACYR2ZJOkWMAznI9RGUMTG JJGTBP8OL7AZSQdIRl3HRTY CMdcluQLgZDMuDFWJQAO0NW GqoVpoCUTfLZDnwwGNk2v7t VI5rmemB1tkodC4TyUzRMsg YXJ9 [facility] CBC,PLATELETSon 08-11-2024 Erythrocyte distribution width (RBC) [Ratio] 13.7 % 10.8 - 14.9 % [facility] Hematocrit (Bld) [Volume fraction] 43.2 % 34.9 - 44.3 % [facility] Hemoglobin (Bld) [Mass/Vol] 14 g/dL 11.4 - 15.2 g/dL [facility] Interpretation and review of laboratory results Abnormal [facility] MCH (RBC) [Entitic mass] 29.9 pg 25.9 - 33.9 pg [facility] MCHC (RBC) [Mass/Vol] 32.4 g/dL 31.4 - 35.9 g/dL [facility] MCV (RBC) [Entitic vol] 92.1 fL 79.6 - 97.7 fL [facility] Platelet mean volume (Bld) [Entitic vol] 11.5 fL 8.5 - 12.2 fL [facility] Platelets (Bld) [#/Vol] 240 10*3/uL 150 - 393 K/uL [facility] RBC (Bld) [#/Vol] 4.69 10*6/uL [facility] WBC (Bld) [#/Vol] 11.76 10*3/uL High 3.99 - 11.19 K/uL [facility] Hematocrit (Bld) [Volume fraction] 43.2 % Normal 34.9-44.3 [facility] Comment on above: Performed By: #### T YPEC #### U [facility] (DEFAULT) [address] [place] [address] Hemoglobin (Bld) [Mass/Vol] 14.0 g/dL Normal 11.4-15.2 [facility] Comment on above: Performed By: #### T YPEC #### [facility] (DEFAULT) [address] [address] MCV (RBC) [Entitic vol] 92.1 fL Normal 79.6-97.[address] [facility] Comment on above: Performed By: #### T YPEC #### [facility] (DEFAULT) [address] [address] Mean Cell Hgb 29.9 pg Normal 25.9-33.9 [facility] Comment on above: Performed By: #### T YPEC #### [facility] (DEFAULT) [address] [address] Mean Cell Hgb Conc 32.4 g/dL Normal 31.4-35.9 [facility] Comment on above: Performed By: #### T YPEC #### [facility] (DEFAULT) [address] [address] Platelet mean volume (Bld) [Entitic vol] 11.5 fL Normal 8.5-12.2 [facility] Comment on above: Performed By: #### T YPEC #### [facility] (DEFAULT) [address] [address] Platelets (Bld) [#/Vol] 240 10*3/uL Normal 150-393 [facility] Comment on above: Performed By: #### T YPEC #### [facility] (DEFAULT) [address] [address] RBC (Bld) [#/Vol] 4.69 10*6/uL Normal 3.91-5.04 [facility] Comment on above: Performed By: #### T YPEC #### [facility] (DEFAULT) [address] [place] [address] RBC Distribution 13.7 % Normal 10.8-14.9 [facility] Comment on above: Performed By: #### T YPEC #### [facility] (DEFAULT) [address] [place] [address] WBC (Bld) [#/Vol] 11.76 10*3/uL High 3.99-11.19 [facility] Comment on above: Performed By: #### T YPEC #### [facility] (DEFAULT) [address] [place] [address] CHEM 7 (LYTES,BUN,CREA,GLUC) on 08-11-2024 Anion gap [Moles/Vol] 14 mmol/L 7 - 17 mmol/L [facility] Chloride [Moles/Vol] 103 mmol/L 98 - 10 8 mmol/L [facility] CO2 [Moles/Vol] 26 mmol/L 21 - 31 mmol/L [facility] Creatinine [Mass/Vol] 1.32 mg/dL High 0.50 - 1.20 mg/dL [facility] eGFR, CKD-EPI, Female 41 Low - PINF [facility] Glucose [Mass/Vol] 127 mg/dL 70 - 179 mg/dL [facility] Interpretation and review of laboratory results Abnormal [facility] Osmolality Calc [Osmolality] 306 High [facility] Potassium [Moles/Vol] 4.6 mmol/L 3.5 - 5.0 mmol/L [facility] Sodium [Moles/Vol] 138 mmol/L 135 - 145 mmol/L [facility] Urea nitrogen [Mass/Vol] 53 mg/dL High 7 - 25 mg/dL [facility] Urea nitrogen/Creatinine [Mass ratio] 40 mg/mg [facility] Anion gap [Moles/Vol] 14 mmol/L Normal 7-17 [facility] Comment on above: Performed By: #### H EMO #### [facility] (DEFAULT) [address] [place] [address] Chloride [Moles/Vol] 103 mmol/L Normal 98-108 [facility] Comment on above: Performed By: #### H EMO #### [facility] (DEFAULT) [address] [place] [address] CO2 [Moles/Vol] 26 mmol/L Normal 21-31 [facility] Comment on above: Performed By: #### H EMO #### [facility] (DEFAULT) [address] [place] [address] Creatinine [Mass/Vol] 1.32 mg/dL High 0.50-1.20 [facility] Comment on above: Performed By: #### H [facility] #### [facility] (DEFAULT) [address] [address] GFR/1.73 sq M.predicted among non-blacks MDRD (S/P/Bld) [Vol rate/Area] 41 mL/min/{1.73_m2} Low >=60 [facility] Comment on above: Result Comment: Repo rted eGFR is based on the CKD-EPI 2020 equation using creatinine, age, and sex. Performed By: #### H [facility] #### [place] [facility] (DEFAULT) [address] [address] Glucose [Mass/Vol] 127 mg/dL Normal Nonfastin -179 mg/dL; Fastin-99 [facility] Comment on above: Performed By: #### H EMO #### [facility] (DEFAULT) [address] [address] Osmolality [Osmolality] 306 mosm/kg High 278-305 [facility] Comment on above: Performed By: #### H EMOGC #### [facility] (DEFAULT) [address] [address] Potassium [Moles/Vol] 4.6 mmol/L Normal 3.5-5.0 [facility] Comment on above: Performed By: #### H EMOGC #### [facility] (DEFAULT) [address] [place] [address] Sodium [Moles/Vol] 138 mmol/L Normal 135-145 [facility] Comment on above: Performed By: #### H EMOGC #### [facility] (DEFAULT) [address] [place] [address] Urea nitrogen [Mass/Vol] 53 mg/dL High 7-25 [facility] Comment on above: Performed By: #### H EMOGC #### [facility] (DEFAULT) [address] [place] [address] Urea nitrogen/Creatinine [Mass ratio] 40 mg/mg Normal [facility] Comment on above: Performed By: #### H EMO #### U [facility] (DEFAULT) [address] [place] [address] GLUCOSE POCon 08-11-2024 Glucose [Mass/Vol] 213 mg/dL High 70 - 179 mg/dL [facility] Interpretation and review of laboratory results Abnormal [facility] POC Sample Type CAPBL [facility] Glucose [Mass/Vol] 255 mg/dL High 70 - 179 mg/dL [facility] Interpretation and review of laboratory results Abnormal [facility] POC [facility] Glucose [Mass/Vol] 190 mg/dL High 70 - 179 mg/dL [facility] Interpretation and review of laboratory results Abnormal [facility]OC Sample [facility] Glucose [Mass/Vol] 205 mg/dL High 70 - 179 mg/dL [facility] Interpretation and review of laboratory results Abnormal [facility] POC Sample Type CAPBL [facility] MAGNESIUMon 08-11-2024 Interpretation and review of laboratory results Normal [facility] Magnesium [Mass/Vol] 1.9 mg/dL 1.6 - 2 .6 mg/dL [facility] Magnesium [Mass/Vol] 1.9 mg/dL Normal 1.6-2.6 [facility] Comment on above: Performed By: #### M WENDY, CHM7 #### [facility] (DEFAULT) [address] [place] [address] No Panel Informationon 08-11 [facility] BLOOD CULTUREon 08-10-2024 Bacteria identified Cx Nom (Unsp spec) NO GROWTH DAY 5 OF 5 Normal [facility] Comment on above: Order [...] bottle. Performed By: #### T YPEC #### [facility] (DEFAULT) [address] [place] [address] Bacteria identified Cx Nom (Unsp spec) NO GROWTH DAY 5 OF 5 Normal [facility] Comment on above: Order [...] bottle. Performed By: #### B LDCULT #### [facility] (DEFAULT) [address] [place] [address] CBC,PLATELETSon 08-10-2024 Erythrocyte distribution width (RBC) [Ratio] 13.3 % 10.8 - 14.9 % [facility] Hematocrit (Bld) [Volume fraction] 45.1 % High 34.9 - 44.3 % [facility] Hemoglobin (Bld) [Mass/Vol] 14.1 g/dL 11.4 - 15.2 g/dL [facility] Interpretation and review of laboratory results Abnormal [facility] MCH (RBC) [Entitic mass] 29.1 pg 25.9 - 33.9 pg [facility] MCHC (RBC) [Mass/Vol] 31.3 g/dL Low 31.4 - 35.9 g/dL [facility] MCV (RBC) [Entitic vol] 93 fL 79.6 - 97.7 fL [facility] Platelet mean volume (Bld) [Entitic vol] 11.4 fL 8.5 - 12.2 fL [facility] Platelets (Bld) [#/Vol] 216 10*3/uL 150 - 393 K/uL [facility] RBC (Bld) [#/Vol] 4.85 10*6/uL [facility] WBC (Bld) [#/Vol] 13.78 10*3/uL High 3.99 - 11.19 K/uL [facility] Hematocrit (Bld) [Volume fraction] 45.1 % High 34.9-44.3 [facility] Comment on above: Performed By: #### H [facility] #### [facility] (DEFAULT) [address] [address] Hemoglobin (Bld) [Mass/Vol] 14.1 g/dL Normal 11.4-15.2 [facility] Comment on above: Performed By: #### H [facility] #### [facility] (DEFAULT) [address] [address] MCV (RBC) [Entitic vol] 93.0 fL Normal 79.6-97.[address] [facility] Comment on above: Performed By: #### H [facility] #### [facility] (DEFAULT) [address] [address] Mean Cell Hgb 29.1 pg Normal 25.9-33.9 [facility] Comment on above: Performed By: #### H [facility] #### [facility] (DEFAULT) [address] [place] [address] Mean Cell Hgb Conc 31.3 g/dL Low 31.4-35.9 [facility] Comment on above: Performed By: #### H EMOGC #### [facility] (DEFAULT) [address] [place] [address] Platelet mean volume (Bld) [Entitic vol] 11.4 fL Normal 8.5-12.2 [facility] Comment on above: Performed By: #### H EMOGC #### [facility] (DEFAULT) [address] [place] [address] Platelets (Bld) [#/Vol] 216 10*3/uL Normal 150-393 [facility] Comment on above: Performed By: #### H EMO #### [facility] (DEFAULT) [address] [place] [address] RBC (Bld) [#/Vol] 4.85 10*6/uL Normal 3.91-5.04 [facility] Comment on above: Performed By: #### H EMO #### [facility] (DEFAULT) [address] [place] [address] RBC Distribution 13.3 % Normal 10.8-14.9 [facility] Comment on above: Performed By: #### H EMOGC #### [facility] (DEFAULT) [address] [address] WBC (Bld) [#/Vol] 13.78 10*3/uL High 3.99-11.19 [facility] Comment on above: Performed By: #### H EMOGC #### [facility] (DEFAULT) [address] [address] CHEM 7 (LYTES,BUN,CREA,GLUC) on 08-10-2024 Anion gap [Moles/Vol] 16 mmol/L 7 - 17 mmol/L [facility] Chloride [Moles/Vol] 103 mmol/L 98 - 10 8 mmol/L [facility] CO2 [Moles/Vol] 24 mmol/L 21 - 31 mmol/L [facility] Creatinine [Mass/Vol] 1.36 mg/dL High 0.50 - 1.20 mg/dL [facility] eGFR, CKD-EPI, Female 40 Low - PINF [facility] Glucose [Mass/Vol] 186 mg/dL High 70 - 179 mg/dL [facility] Interpretation and review of laboratory results Abnormal [facility] Osmolality Calc [Osmolality] 308 High [facility] Potassium [Moles/Vol] 4.9 mmol/L 3.5 - 5.0 mmol/L [facility] Sodium [Moles/Vol] 138 mmol/L 135 - 145 mmol/L [facility] Urea nitrogen [Mass/Vol] 47 mg/dL High 7 - 25 mg/dL [facility] Urea nitrogen/Creatinine [Mass ratio] 35 mg/mg [facility] Anion gap [Moles/Vol] 16 mmol/L Normal 7-17 [facility] Comment on above: Performed By: #### CAMERON PALACIOS ####[facility] (DEFAULT)[address] [place] [address] Chloride [Moles/Vol] 103 mmol/L Normal 98-108 [facility] Comment on above: Performed By: #### CAMERON PALACIOS ####[facility] (DEFAULT)[address] [place] [address] CO2 [Moles/Vol] 24 mmol/L Normal 21-31 [facility] Comment on above: Performed By: #### CAMERON PALACIOS ####[facility] (DEFAULT)[address] [place] [address] Creatinine [Mass/Vol] 1.36 mg/dL High 0.50-1.20 [facility] Comment on above: Performed By: #### HEYDI PALACIOS7 ####[facility] (DEFAULT)[address] [place] [address] GFR/1.73 sq M.predicted among non-blacks MDRD (S/P/Bld) [Vol rate/Area] 40 mL/min/{1.73_m2} Low >=60 [facility] Comment on above: Result Comment: Repo rted eGFR is based on the CKD-EPI 2020 equation using creatinine, age, and sex. Performed By: #### HEYDI PALACIOS7 ####[facility] (DEFAULT)[address] [place] [address] Glucose [Mass/Vol] 186 mg/dL High Nonfastin -179 mg/dL; Fastin-99 [facility] Comment on above: Performed By: #### HEYDI PALACIOS7 ####[facility] (DEFAULT)[address] [place] [address] Osmolality [Osmolality] 308 mosm/kg High 278-305 [facility] Comment on above: Performed By: #### HEYDI PALACIOS7 ####[facility] (DEFAULT)[address] [place] [address] Potassium [Moles/Vol] 4.9 mmol/L Normal 3.5-5.0 [facility] Comment on above: Performed By: #### Jaiden NGUYEN CHM7 ####[facility] (DEFAULT)[address] [place] [address] Sodium [Moles/Vol] 138 mmol/L Normal 135-145 [facility] Comment on above: Performed By: #### Jaiden NGUYEN CHJaiden7 ####[facility] (DEFAULT)[address] [place] [address] Urea nitrogen [Mass/Vol] 47 mg/dL High 7-25 [facility] Comment on above: Performed By: #### Jaiden NGUYEN CHM7 ####[facility] (DEFAULT)[address] [place] [address] Urea nitrogen/Creatinine [Mass ratio] 35 mg/mg Normal [facility] Comment on above: Performed By: #### M [facility] ####[facility] (DEFAULT)[address] [place] [address] GLUCOSE POCon 08-10-2024 Glucose [Mass/Vol] 144 mg/dL 70 - 179 mg/dL [facility] POC Sample Type [facility] Glucose [Mass/Vol] 177 mg/dL 70 - 179 mg/dL [facility] POC Sample [facility] Glucose [Mass/Vol] 180 mg/dL High 70 - 179 mg/dL [facility] Interpretation and review of laboratory results Abnormal [facility] POC Sample Type CAPBL [facility] Glucose [Mass/Vol] 193 mg/dL High 70 - 179 mg/dL [facility] Interpretation and review of laboratory results Abnormal [facility] POC Sample Type CAPBL [facility] Glucose [Mass/Vol] 200 mg/dL High 70 - 179 mg/dL [facility] Interpretation and review of laboratory results Abnormal [facility] POC Sample Type CAPBL [facility] Glucose [Mass/Vol] 198 mg/dL High 70 - 179 mg/dL [facility] Interpretation and review of laboratory results Abnormal [facility] POC Sample Type CAPBL [facility] MAGNESIUMon 08-10-2024 Interpretation and review of laboratory results Normal [facility] Magnesium [Mass/Vol] 1.8 mg/dL 1.6 - 2 .6 mg/dL [facility] Magnesium [Mass/Vol] 1.8 mg/dL Normal 1.6-2.6 [facility] Comment on above: Performed By: #### M , CHM7 ####[facility] (DEFAULT)[address] [place] [address] No Panel Informationon 08-10 [facility] URINE CULTUREOrdered By: Franklin Carcamo on 08-10-2024 Bacteria identified Cx Nom (Unsp spec) Growth [facility] Bacteria identified Cx Nom (Unsp spec) KLEBSIELLA PNEUMONIAE Abnormal [facility] Interpretation and review of laboratory results Abnormal [facility] CBC,PLATELETSon 08-09-2024 Erythrocyte distribution width (RBC) [Ratio] 13.5 % 10.8 - 14.9 % [facility] Hematocrit (Bld) [Volume fraction] 44.4 % High 34.9 - 44.3 % [facility] Hemoglobin (Bld) [Mass/Vol] 14.1 g/dL 11.4 - 15.2 g/dL [facility] Interpretation and review of laboratory results Abnormal [facility] MCH (RBC) [Entitic mass] 29.4 pg 25.9 - 33.9 pg [facility] MCHC (RBC) [Mass/Vol] 31.8 g/dL 31.4 - 35.9 g/dL [facility] MCV (RBC) [Entitic vol] 92.7 fL 79.6 - 97.7 fL [facility] Platelet mean volume (Bld) [Entitic vol] 11.5 fL 8.5 - 12.2 fL [facility] Platelets (Bld) [#/Vol] 226 10*3/uL 150 - 393 K/uL [facility] RBC (Bld) [#/Vol] 4.79 10*6/uL [facility] WBC (Bld) [#/Vol] 12.37 10*3/uL High 3.99 - 11.19 K/uL [facility] Hematocrit (Bld) [Volume fraction] 44.4 % High 34.9-44.3 [facility] Comment on above: Performed By: #### H EMOGC #### [facility] (DEFAULT) [address] [place] [address] Hemoglobin (Bld) [Mass/Vol] 14.1 g/dL Normal 11.4-15.2 [facility] Comment on above: Performed By: #### H EMOGC #### [facility] (DEFAULT) [address] [place] [address] MCV (RBC) [Entitic vol] 92.7 fL Normal 79.6-97.[address] [facility] Comment on above: Performed By: #### H EMOGC #### [facility] (DEFAULT) [address] [address] Mean Cell Hgb 29.4 pg Normal 25.9-33.9 [facility] Comment on above: Performed By: #### H EMOGC #### [facility] (DEFAULT) [address] [address] Mean Cell Hgb Conc 31.8 g/dL Normal 31.4-35.9 [facility] Comment on above: Performed By: #### H EMOGC #### [facility] (DEFAULT) [address] [place] [address] Platelet mean volume (Bld) [Entitic vol] 11.5 fL Normal 8.5-12.2 [facility] Comment on above: Performed By: #### H EMOGC #### [facility] (DEFAULT) [address] [place] [address] Platelets (Bld) [#/Vol] 226 10*3/uL Normal 150-393 [facility] Comment on above: Performed By: #### H EMOGC #### [facility] (DEFAULT) [address] [address] RBC (Bld) [#/Vol] 4.79 10*6/uL Normal 3.91-5.04 [facility] Comment on above: Performed By: #### H EMOGC #### [facility] (DEFAULT) [address] [place] [address] RBC Distribution 13.5 % Normal 10.8-14.9 [facility] Comment on above: Performed By: #### H [facility] #### [facility] (DEFAULT) [address] [place] [address] WBC (Bld) [#/Vol] 12.37 10*3/uL High 3.99-11.19 [facility] Comment on above: Performed By: #### H [facility] #### [facility] (DEFAULT) [address] [place] [address] CHEM 7 (LYTES,BUN,CREA,GLUC) on 08-09-2024 Anion gap [Moles/Vol] 14 mmol/L 7 - 17 mmol/L [facility] Chloride [Moles/Vol] 103 mmol/L 98 - 10 8 mmol/L [facility] CO2 [Moles/Vol] 26 mmol/L 21 - 31 mmol/L [facility] Creatinine [Mass/Vol] 1.35 mg/dL High 0.50 - 1.20 mg/dL [facility] eGFR, CKD-EPI, Female 40 Low - PINF [facility] Glucose [Mass/Vol] 182 mg/dL High 70 - 179 mg/dL [facility] Interpretation and review of laboratory results Abnormal [facility] Osmolality Calc [Osmolality] 305 [facility] Potassium [Moles/Vol] 4.9 mmol/L 3.5 - 5.0 mmol/L [facility] Sodium [Moles/Vol] 138 mmol/L 135 - 145 mmol/L [facility] Urea nitrogen [Mass/Vol] 38 mg/dL High 7 - 25 mg/dL [facility] Urea nitrogen/Creatinine [Mass ratio] 28 mg/mg [facility] Anion gap [Moles/Vol] 14 mmol/L Normal 7-17 [facility] Comment on above: Performed By: #### H [facility] #### [facility] (DEFAULT) [address] [place] [address] Chloride [Moles/Vol] 103 mmol/L Normal 98-108 [facility] Comment on above: Performed By: #### H EMO #### [facility] (DEFAULT) [address] [place] [address] CO2 [Moles/Vol] 26 mmol/L Normal 21-31 [facility] Comment on above: Performed By: #### H EMO #### [facility] ([facility]) [address] [place] [address] Creatinine [Mass/Vol] 1.35 mg/dL High 0.50-1.20 [facility] Comment on above: Performed By: #### H [facility] #### [facility] (DEFAULT) [address] [address] GFR/1.73 sq M.predicted among non-blacks MDRD (S/P/Bld) [Vol rate/Area] 40 mL/min/{1.73_m2} Low >=60 [facility] Comment on above: Result Comment: Repo rted eGFR is based on the CKD-EPI 2020 equation using creatinine, age, and sex. Performed By: #### H [facility] #### [place] [facility] (DEFAULT) [address] [address] Glucose [Mass/Vol] 182 mg/dL High Nonfastin -179 mg/dL; Fastin-99 [facility] Comment on above: Performed By: #### H EMO #### [facility] ([facility]) [address] [address] Osmolality [Osmolality] 305 mosm/kg Normal 278-305 [facility] Comment on above: Performed By: #### H EMOGC #### [facility] (DEFAULT) [address] [address] Potassium [Moles/Vol] 4.9 mmol/L Normal 3.5-5.0 [facility] Comment on above: Performed By: #### H EMOGC #### [facility] (DEFAULT) [address] [place] [address] Sodium [Moles/Vol] 138 mmol/L Normal 135-145 [facility] Comment on above: Performed By: #### H EMOGC #### [facility] (DEFAULT) [address] [place] [address] Urea nitrogen [Mass/Vol] 38 mg/dL High 7-25 [facility] Comment on above: Performed By: #### H EMOGC #### [facility] (DEFAULT) [address] [place] [address] Urea nitrogen/Creatinine [Mass ratio] 28 mg/mg Normal [facility] Comment on above: Performed By: #### H EMO #### [facility] (DEFAULT) [address] [place] [address] EXTRA MICROon 08-09-2024 [facility] GLUCOSE POCon 08-09-2024 Glucose [Mass/Vol] 186 mg/dL High 70 - 179 mg/dL [facility] Interpretation and review of laboratory results Abnormal [facility] POC Sample Type CAPBL [facility] Glucose [Mass/Vol] 255 mg/dL High 70 - 179 mg/dL [facility] Interpretation and review of laboratory results Abnormal [facility] POC Sample Type CAPBL [facility] Glucose [Mass/Vol] 235 mg/dL High 70 - 179 mg/dL [facility] Interpretation and review of laboratory results Abnormal [facility] POC Sample Type CAPBL [facility] Glucose [Mass/Vol] 167 mg/dL 70 - 179 mg/dL [facility] POC Sample Type [facility] INTERVENTIONAL UPPER ENDOSCO PYon 08-09-2024 Body surface area Derived from formula 1.9 m2 [facility] Radiology Study observation (narrative) [facility] MAGNESIUMon 08-09-2024 Interpretation and review of laboratory results Normal [facility] Magnesium [Mass/Vol] 1.8 mg/dL 1.6 - 2 .6 mg/dL [facility] Magnesium [Mass/Vol] 1.8 mg/dL Normal 1.6-2.6 [facility] Comment on above: Performed By: #### H [facility] #### [facility] (DEFAULT) [address] [place] [address] No Panel Informationon 08-09 [facility] PT,INR,PTTon 08-09-2024 aPTT Coag (PPP) [Time] 38.4 s High [facility] INR Coag (Bld) [Relative time] 1 {INR} 0.9 - 1.1 [facility] Interpretation and review of laboratory results Abnormal [facility] PT Coag (PPP) [Time] 13 s [facility] aPTT Coag (Bld) [Time] 38.4 s High 24.0-34.3 [facility] Comment on above: Performed By: #### B LDCULT #### [facility] (DEFAULT) [address] [place] [address] INR Coag (PPP) [Relative time] 1.0 {INR} Normal 0.9-1.1 [facility] Comment on above: Performed By: #### B LDCULT #### [facility] (DEFAULT) [address] [place] [address] PT Coag (PPP) [Time] 13.0 s Normal 11.9-14.2 [facility] Comment on above: Performed By: #### B LDCULT #### [facility] (DEFAULT) [address] [place] [address] SURG PATH REQUESTon 08-10-19 Case Report [facility] Comment on above: Result Comment: Surg ical Pathology Report Case: [id number] Authorizing Provider: Judson Keith DO Collected: 08/09/2024 10:07 AM Ordering Location: [facility] Received: 08/09/2024 12:13 PM Pathologist: Renae Glez MD Specimen: STOMACH, gastric, r/o HP Performed By: #### S URGP #### [facility] (DEFAULT) [address] [address] Clinical History R/O HP. Associated Diagnosis: None. Medical History: No medical history provided. [facility] Comment on above: Performed By: #### S URGP #### [facility] (DEFAULT) [address] [address] Gross Description [facility] Comment on above: Result Comment: The specimen is received in one properly labeled container with the patient's name and accession number. A. The specimen is designated "gastric, r/o hp" and consists of five fragments of jackson-pink soft tissue, from 0.2 up to 0.6 cm in greatest dimension. TE 1 Lab Use Only: JobID [id number] Grosser for this case was: Sunshine Hidalgo Performed By: #### S URGP #### [facility] (DEFAULT) [address] [address] Microscopic Description A microscopic examination was performed. [facility] Comment on above: Performed By: #### S URGP #### [facility] (DEFAULT) [address] [address] Pathologic Diagnosis [facility] Comment on above: Result Comment: Anjelica echols, biopsy: Focal erosion No Helicobacter pylori identified at 1005 EDT Performed By: #### S URGP #### [facility] (DEFAULT) [address] [address] Professional Interpretation Performed at: [facility] Comment on above: Result Comment: [facility] For Immediate Release to [facility] Yes [address] [address] Performed By: #### S URGP #### [facility] (DEFAULT) [address] [place] [address] CBC,PLATELETSon 08-08-2024 Erythrocyte distribution width (RBC) [Ratio] 13.6 % 10.8 - 14.9 % [facility] Hematocrit (Bld) [Volume fraction] 45.7 % High 34.9 - 44.3 % [facility] Hemoglobin (Bld) [Mass/Vol] 14.4 g/dL 11.4 - 15.2 g/dL [facility] Interpretation and review of laboratory results Abnormal [facility] MCH (RBC) [Entitic mass] 29.4 pg 25.9 - 33.9 pg [facility] MCHC (RBC) [Mass/Vol] 31.5 g/dL 31.4 - 35.9 g/dL [facility] MCV (RBC) [Entitic vol] 93.3 fL 79.6 - 97.7 fL [facility] Platelet mean volume (Bld) [Entitic vol] 10.9 fL 8.5 - 12.2 fL [facility] Platelets (Bld) [#/Vol] 212 10*3/uL 150 - 393 K/uL [facility] RBC (Bld) [#/Vol] 4.9 10*6/uL [facility] WBC (Bld) [#/Vol] 10.39 10*3/uL 3.99 - 11.19 K/uL [facility] Hematocrit (Bld) [Volume fraction] 45.7 % High 34.9-44.3 [facility] Comment on above: Performed By: #### H [facility] #### [facility] (DEFAULT) [address] [place] [address] Hemoglobin (Bld) [Mass/Vol] 14.4 g/dL Normal 11.4-15.2 [facility] Comment on above: Performed By: #### H [facility] #### [facility] (DEFAULT) [address] [place] [address] MCV (RBC) [Entitic vol] 93.3 fL Normal 79.6-97.[address] [facility] Comment on above: Performed By: #### H EMOGC #### [facility] (DEFAULT) [address] [place] [address] Mean Cell Hgb 29.4 pg Normal 25.9-33.9 [facility] Comment on above: Performed By: #### H EMOGC #### [facility] (DEFAULT) [address] [place] [address] Mean Cell Hgb Conc 31.5 g/dL Normal 31.4-35.9 [facility] Comment on above: Performed By: #### H EMOGC #### [facility] (DEFAULT) [address] [place] [address] Platelet mean volume (Bld) [Entitic vol] 10.9 fL Normal 8.5-12.2 [facility] Comment on above: Performed By: #### H EMOGC #### [facility] (DEFAULT) [address] [address] Platelets (Bld) [#/Vol] 212 10*3/uL Normal 150-393 [facility] Comment on above: Performed By: #### H EMOGC #### [facility] (DEFAULT) [address] [place] [address] RBC (Bld) [#/Vol] 4.90 10*6/uL Normal 3.91-5.04 [facility] Comment on above: Performed By: #### H EMOGC #### [facility] (DEFAULT) [address] [address] RBC Distribution 13.6 % Normal 10.8-14.9 [facility] Comment on above: Performed By: #### H EMOGC #### [facility] (DEFAULT) [address] [place] [address] WBC (Bld) [#/Vol] 10.39 10*3/uL Normal 3.99-11.19 [facility] Comment on above: Performed By: #### H [facility] #### [facility] (DEFAULT) [address] [place] [address] CHEM 7 (LYTES,BUN,CREA,GLUC) on 08-08-2024 Anion gap [Moles/Vol] 15 mmol/L 7 - 17 mmol/L [facility] Chloride [Moles/Vol] 104 mmol/L 98 - 10 8 mmol/L [facility] CO2 [Moles/Vol] 25 mmol/L 21 - 31 mmol/L [facility] Creatinine [Mass/Vol] 1.15 mg/dL 0.50 - 1.20 mg/dL [facility] eGFR, CKD-EPI, Female 48 Low - PINF [facility] Glucose [Mass/Vol] 111 mg/dL 70 - 179 mg/dL [facility] Interpretation and review of laboratory results Abnormal [facility] Osmolality Calc [Osmolality] 302 [facility] Potassium [Moles/Vol] 4.3 mmol/L 3.5 - 5.0 mmol/L [facility] Sodium [Moles/Vol] 140 mmol/L 135 - 145 mmol/L [facility] Urea nitrogen [Mass/Vol] 35 mg/dL High 7 - 25 mg/dL [facility] Urea nitrogen/Creatinine [Mass ratio] 30 mg/mg [facility] Anion gap [Moles/Vol] 15 mmol/L Normal 7-17 [facility] Comment on above: Performed By: #### HEYDI PALACIOS7 ####[facility] (DEFAULT)[address] [place] [address] Chloride [Moles/Vol] 104 mmol/L Normal 98-108 [facility] Comment on above: Performed By: #### Jaiden NGUYEN CHM7 ####[facility] (DEFAULT)[address] [place] [address] CO2 [Moles/Vol] 25 mmol/L Normal 21-31 [facility] Comment on above: Performed By: #### HEYDI PALACIOS7 ####[facility] (DEFAULT)[address] [place] [address] Creatinine [Mass/Vol] 1.15 mg/dL Normal 0.50-1.20 [facility] Comment on above: Performed By: #### HEYDI PALACIOS7 ####[facility] (DEFAULT)[address] [place] [address] GFR/1.73 sq M.predicted among non-blacks MDRD (S/P/Bld) [Vol rate/Area] 48 mL/min/{1.73_m2} Low >=60 [facility] Comment on above: Result Comment: Repo rted eGFR is based on the CKD-EPI 2020 equation using creatinine, age, and sex. Performed By: #### CAMERON PALACIOS ####[facility] (DEFAULT)[address] [place] [address] Glucose [Mass/Vol] 111 mg/dL Normal Nonfastin -179 mg/dL; Fastin-99 [facility] Comment on above: Performed By: #### CAMERON PALACIOS ####[facility] (DEFAULT)[address] [place] [address] Osmolality [Osmolality] 302 mosm/kg Normal 278-305 [facility] Comment on above: Performed By: #### HEYDI PALACIOS7 ####[facility] (DEFAULT)[address] [place] [address] Potassium [Moles/Vol] 4.3 mmol/L Normal 3.5-5.0 [facility] Comment on above: Performed By: #### HEYDI PALACIOS7 ####[facility] (DEFAULT)[address] [place] [address] Sodium [Moles/Vol] 140 mmol/L Normal 135-145 [facility] Comment on above: Performed By: #### M GO, CHM7 ####[facility] (DEFAULT)[address] [place] [address] Urea nitrogen [Mass/Vol] 35 mg/dL High 7-25 [facility] Comment on above: Performed By: #### M GO, CHM7 ####[facility] (DEFAULT)[address] [place] [address] Urea nitrogen/Creatinine [Mass ratio] 30 mg/mg Normal [facility] Comment on above: Performed By: #### M GO, CHM7 ####[facility] (DEFAULT)[address] [place] [address] CT HEAD WITHOUT CONTRASTon 0 08-08-2024 CT [...] have reviewed and approved this report. Normal [facility] CT Head WO contraston 2024 [facility]narrative[facility]Con 08-08-2024 Glucose [Mass/Vol] 150 mg/dL 70 - 179 mg/dL [facility] POC [facility] Glucose [Mass/Vol] 148 mg/dL 70 - 179 mg/dL [facility] POC Sample Type CAPBL [facility] Glucose [Mass/Vol] 192 mg/dL High 70 - 179 mg/dL [facility] Interpretation and review of laboratory results Abnormal [facility] POC Sample Type CAPBL [facility] Glucose [Mass/Vol] 198 mg/dL High 70 - 179 mg/dL [facility] Interpretation and review of laboratory results Abnormal [facility] POC Sample Type CAPBL [facility] Glucose [Mass/Vol] 186 mg/dL High 70 - 179 mg/dL [facility] Interpretation and review of laboratory results Abnormal [facility] POC Sample Type CAPBL [facility] MAGNESIUMon 08-08-2024 Interpretation and review of laboratory results Normal [facility] Magnesium [Mass/Vol] 1.7 mg/dL 1.6 - 2 .6 mg/dL [facility] Magnesium [Mass/Vol] 1.7 mg/dL Normal 1.6-2.6 [facility] Comment on above: Performed By: #### M [facility] ####[facility] (DEFAULT)[address] [place], [place] [id number] No Panel Informationon 08-08 [facility] URINALYSIS REFLEX TO CULTURE PERFORMABLEOrdered By: Danya Yates on 08-08-2024 Appearance (U) Cloudy Abnormal Clear [facility] Bacteria LM Ql (Urine sed) PRESENT Abnormal ABSENT [facility] Color (U) Yellow Yellow [facility] Epithelial cells.squamous LM Ql (Urine sed) 0-2/hpf 0-2/hpf, 3-5/hpf = 1+ [facility] Glucose Test strip (U) [Mass/Vol] Negative Negative [facility] Interpretation and review of laboratory results Abnormal [facility] Ketones (U) [Mass/Vol] Trace Abnormal Negative [facility] Leukocyte esterase Test strip Ql (U) Large Abnormal Negative [facility] Nitrite Ql (U) Positive Abnormal Negative [facility] pH (U) 7.0 [pH] 5.0 - 7.0 [facility] Protein (U) [Mass/Vol] Trace Abnormal Negative [facility] RBC (U) [#/Vol] Trace Abnormal Negative [facility] RBC LM.HPF (Urine sed) [#/Area] 6-10 Abnormal [facility] Specific gravity (U) [Rel density] 1.023 1.001 - 1.035 [facility] Urobilinogen (U) [Mass/Vol] 1.0 E.U./dL 0.2 E.U/dL, 1.0 E.U/dL [facility] WBC LM.HPF (Urine sed) [#/Area] /[HPF] Abnormal [facility] URINALYSIS REFLEX TO CULTURE PERFORMABLEon 08-08-2024 Appearance (U) Cloudy Abnormal Clear [facility] Comment on above: Order Comment: For i ndwelling catheters, specimen collection is acceptable on catheter day 1 and 2 only. ? Performed By: #### T YPEC #### [facility] (DEFAULT) [address] [place] [address] Bacteria PRESENT Abnormal ABSENT [facility] Comment on above: Order Comment: For i ndwelling catheters, specimen collection is acceptable on catheter day 1 and 2 only. ? Performed By: #### T YPEC #### [facility] (DEFAULT) [address] [place] [address] Blood Urine Trace Abnormal Negative [facility] Comment on above: Order Comment: For i ndwelling catheters, specimen collection is acceptable on catheter day 1 and 2 only. ? Performed By: #### T YPEC #### [facility] (DEFAULT) [address] [place] [address] Color (U) Yellow Normal Yellow [facility] Comment on above: Order Comment: For i ndwelling catheters, specimen collection is acceptable on catheter day 1 and 2 only. ? Performed By: #### T YPEC #### [facility] (DEFAULT) [address] [place] [address] Glucose Ql (U) Negative Normal Negative [facility] Comment on above: Order Comment: For i ndwelling catheters, specimen collection is acceptable on catheter day 1 and 2 only. ? Performed By: #### T YPEC #### [facility] (DEFAULT) [address] [place] [address] Ketones Ql (U) Trace Abnormal Negative [facility] Comment on above: Order Comment: For i ndwelling catheters, specimen collection is acceptable on catheter day 1 and 2 only. ? Performed By: #### T YPEC #### [facility] (DEFAULT) [address] [place] [address] Leukocyte esterase Test strip Ql (U) Large Abnormal Negative [facility] Comment on above: Order Comment: For i ndwelling catheters, specimen collection is acceptable on catheter day 1 and 2 only. ? Performed By: #### T YPEC #### [facility] (DEFAULT) [address] [address] Nitrites Urine Positive Abnormal Negative [facility] Comment on above: Order Comment: For i ndwelling catheters, specimen collection is acceptable on catheter day 1 and 2 only. ? Performed By: #### T YPEC #### [facility] (DEFAULT) [address] [place] [address] pH (U) 7.0 [pH] Normal 5.0-7.0 [facility] Comment on above: Order Comment: For i ndwelling catheters, specimen collection is acceptable on catheter day 1 and 2 only. ? Performed By: #### T YPEC #### [facility] (DEFAULT) [address] [place] [address] Protein Urine Trace Abnormal Negative [facility] Comment on above: Order Comment: For i ndwelling catheters, specimen collection is acceptable on catheter day 1 and 2 only. ? Performed By: #### T YPEC #### [facility] (DEFAULT) [address] [address] RBC Urine 6-10 Abnormal 0-2 [facility] Comment on above: Order Comment: For i ndwelling catheters, specimen collection is acceptable on catheter day 1 and 2 only. ? Performed By: #### T YPEC #### [facility] (DEFAULT) [address] [place] [address] Specific [place] Urine 1.023 Normal 1.001-1.[address] [facility] Comment on above: Order Comment: For i ndwelling catheters, specimen collection is acceptable on catheter day 1 and 2 only. ? Performed By: #### T YPEC #### [facility] (DEFAULT) [address] [place] [address] Squamous/Epithelial Cells, Urine 0-2/hpf Normal 0-2/hpf, 3-5/hpf = 1+ [facility] Comment on above: Order Comment: For i ndwelling catheters, specimen collection is acceptable on catheter day 1 and 2 only. ? Performed By: #### T YPEC #### [facility] (DEFAULT) [address] [place] [address] Urobilinogen Urine 1.0 E.U./dL Normal 0.2 E.U/d L, 1.0 E.U/dL [facility] Comment on above: Order Comment: For i ndwelling catheters, specimen collection is acceptable on catheter day 1 and 2 only. ? Performed By: #### T YPEC #### [facility] (DEFAULT) [address] [address] WBC LM.HPF (Urine sed) [#/Area] /[HPF] Abnormal 0 - 5 [facility] Comment on above: Order Comment: For i ndwelling catheters, specimen collection is acceptable on catheter day 1 and 2 only. ? Performed By: #### T YPEC #### [facility] (DEFAULT) [address] [address] URINE CULTUREon 08-08-2024 Amikacin [Susceptibility] <= Invalid Interpretation Code [facility] Comment on above: Order Comment: For i [...] ? Performed By: #### T YPEC #### [facility] (DEFAULT) [address] [address] Ampicillin [Susceptibility] >=32 Resistant [facility] Comment on above: Order Comment: For i [...] ? Performed By: #### T YPEC #### [facility] (DEFAULT) [address] [address] Ampicillin+Sulbactam [Susceptibility] >=32 Resistant [facility] Comment on above: Order Comment: For i [...] #### T YPEC #### [facility] (DEFAULT) [address] [place] [address] ceFAZolin [Susceptibility] >= Resistant [facility] Comment on above: Order Comment: For i [...] cefdinir. Performed By: #### T YPEC #### [facility] (DEFAULT) [address] [address] Cefepime [Susceptibility] <= Invalid Interpretation Code [facility] Comment on above: Order Comment: For i [...] #### T YPEC #### [facility] (DEFAULT) [address] [address] cefTRIAXone [Susceptibility] <= Invalid Interpretation Code [facility] Comment on above: Order Comment: For i [...] ? Performed By: #### T YPEC #### [facility] (DEFAULT) [address] [place] [address] Ciprofloxacin [Susceptibility] >= Resistant [facility] Comment on above: Order Comment: For i [...] ? Performed By: #### T YPEC #### [facility] (DEFAULT) [address] [address] Ertapenem [Susceptibility] <= Invalid Interpretation Code [facility] Comment on above: Order Comment: For i [...] ? Performed By: #### T YPEC #### [facility] (DEFAULT) [address] [address] Gentamicin [Susceptibility] <= Invalid Interpretation Code [facility] Comment on above: Order Comment: For i [...] ? Performed By: #### T YPEC #### [facility] (DEFAULT) [address] [address] levoFLOXacin [Susceptibility] >= Resistant [facility] Comment on above: Order Comment: For i [...] ? Performed By: #### T YPEC #### [facility] (DEFAULT) [address] [address] Nitrofurantoin [Susceptibility] 128 ug/mL Resistant [facility] Comment on above: Order Comment: For i [...] ? Performed By: #### T YPEC #### [facility] (DEFAULT) [address] [address] Piperacillin+Tazobactam [Susceptibility] 8 ug/mL Invalid Interpretation Code [facility] Comment on above: Order Comment: For i [...] ? Performed By: #### T YPEC #### [facility] (DEFAULT) [address] [address] Trimethoprim+Sulfametho xazole [Susceptibility] <= Invalid Interpretation Code [facility] Comment on above: Order Comment: For i [...] ? Performed By: #### T YPEC #### [facility] (DEFAULT) [address] [address] CBC,PLATELETSon 08-07-2024 Erythrocyte distribution width (RBC) [Ratio] 13.9 % 10.8 - 14.9 % [facility] Hematocrit (Bld) [Volume fraction] 43.1 % 34.9 - 44.3 % [facility] Hemoglobin (Bld) [Mass/Vol] 13.7 g/dL 11.4 - 15.2 g/dL [facility] Interpretation and review of laboratory results Abnormal [facility] MCH (RBC) [Entitic mass] 29.6 pg 25.9 - 33.9 pg [facility] MCHC (RBC) [Mass/Vol] 31.8 g/dL 31.4 - 35.9 g/dL [facility] MCV (RBC) [Entitic vol] 93.1 fL 79.6 - 97.7 fL [facility] Platelet mean volume (Bld) [Entitic vol] 11.1 fL 8.5 - 12.2 fL [facility] Platelets (Bld) [#/Vol] 214 10*3/uL 150 - 393 K/uL [facility] RBC (Bld) [#/Vol] 4.63 10*6/uL [facility] WBC (Bld) [#/Vol] 11.3 10*3/uL High 3.99 - 11.19 K/uL [facility] CHEM 7 (LYTES,BUN,CREA,GLUC) on 08-07-2024 Anion gap [Moles/Vol] 13 mmol/L 7 - 17 mmol/L [facility] Chloride [Moles/Vol] 105 mmol/L 98 - 10 8 mmol/L [facility] CO2 [Moles/Vol] 28 mmol/L 21 - 31 mmol/L [facility] Creatinine [Mass/Vol] 1.19 mg/dL 0.50 - 1.20 mg/dL [facility] eGFR, CKD-EPI, Female 47 Low - PINF [facility] Glucose [Mass/Vol] 90 mg/dL 70 - 179 mg/dL [facility] Interpretation and review of laboratory results Abnormal [facility] Osmolality Calc [Osmolality] 304 [facility] Potassium [Moles/Vol] 4.2 mmol/L 3.5 - 5.0 mmol/L [facility] Sodium [Moles/Vol] 142 mmol/L 135 - 145 mmol/L [facility] Urea nitrogen [Mass/Vol] 34 mg/dL High 7 - 25 mg/dL [facility] Urea nitrogen/Creatinine [Mass ratio] 29 mg/mg [facility] GLUCOSE POCon 08-07-2024 Glucose [Mass/Vol] 185 mg/dL High 70 - 179 mg/dL [facility] Interpretation and review of laboratory results Abnormal [facility] POC Sample Type CAPBL [facility] Glucose [Mass/Vol] 106 mg/dL 70 - 179 mg/dL [facility] POC Sample Type CAPBL [facility] Glucose [Mass/Vol] 104 mg/dL 70 - 179 mg/dL [facility] POC Sample Type CAPBL [facility] MAGNESIUMon 08-07-2024 Interpretation and review of laboratory results Normal [facility] Magnesium [Mass/Vol] 1.8 mg/dL 1.6 - 2 .6 mg/dL [facility] No Panel Informationon 08-07 [facility] CBC,PLATELETSon 08-06-2024 Hematocrit (Bld) [Volume fraction] 43.1 % Normal 34.9-44.3 [facility] Comment on above: Performed By: #### X M #### [facility] (DEFAULT) [address] [place] [address] 28198 Hemoglobin (Bld) [Mass/Vol] 13.7 g/dL Normal 11.4-15.2 [facility] Comment on above: Performed By: #### X M #### [facility] (DEFAULT) [address] [place] [address] MCV (RBC) [Entitic vol] 93.1 fL Normal 79.6-97.[address] [facility] Comment on above: Performed By: #### X M #### [facility] (DEFAULT) [address] [place] [address] Mean Cell Hgb 29.6 pg Normal 25.9-33.9 [facility] Comment on above: Performed By: #### X M #### [facility] (DEFAULT) [address] [place] [address] 29519 Mean Cell Hgb Conc 31.8 g/dL Normal 31.4-35.9 [facility] Comment on above: Performed By: #### X M #### [facility] (DEFAULT) [address] [place] [address] 70807 Platelet mean volume (Bld) [Entitic vol] 11.1 fL Normal 8.5-12.2 [facility] Comment on above: Performed By: #### X M #### [facility] (DEFAULT) [address] [place] [address] 16761 Platelets (Bld) [#/Vol] 214 10*3/uL Normal 150-393 [facility] Comment on above: Performed By: #### X M #### [facility] (DEFAULT) [address] [place] [address] 83375 RBC (Bld) [#/Vol] 4.63 10*6/uL Normal 3.91-5.04 [facility] Comment on above: Performed By: #### X M #### [facility] (DEFAULT) [address] [place] [address] 00528 RBC Distribution 13.9 % Normal 10.8-14.9 [facility] Comment on above: Performed By: #### X M #### [facility] (DEFAULT) [address] [place] [address] 26112 WBC (Bld) [#/Vol] 11.30 10*3/uL High 3.99-11.19 [facility] Comment on above: Performed By: #### X M #### [facility] (DEFAULT) [address] [place] [address] 43005 Erythrocyte distribution width (RBC) [Ratio] 13.9 % 10.8 - 14.9 % [facility] Hematocrit (Bld) [Volume fraction] 44 % 34.9 - 44.3 % [facility] Hemoglobin (Bld) [Mass/Vol] 13.9 g/dL 11.4 - 15.2 g/dL [facility] Interpretation and review of laboratory results Abnormal [facility] MCH (RBC) [Entitic mass] 29.1 pg 25.9 - 33.9 pg [facility] MCHC (RBC) [Mass/Vol] 31.6 g/dL 31.4 - 35.9 g/dL [facility] MCV (RBC) [Entitic vol] 92.2 fL 79.6 - 97.7 fL [facility] Platelet mean volume (Bld) [Entitic vol] 10.7 fL 8.5 - 12.2 fL [facility] Platelets (Bld) [#/Vol] 216 10*3/uL 150 - 393 K/uL [facility] RBC (Bld) [#/Vol] 4.77 10*6/uL [facility] WBC (Bld) [#/Vol] 12.14 10*3/uL High 3.99 - 11.19 K/uL [facility] CHEM 7 (LYTES,BUN,CREA,GLUC) on 08-06-2024 Anion gap [Moles/Vol] 13 mmol/L Normal 7-17 [facility] Comment on above: Performed By: #### HEYDI PALACIOS7 ####[facility] (DEFAULT)[address] [place] [address] Chloride [Moles/Vol] 105 mmol/L Normal 98-108 [facility] Comment on above: Performed By: #### CAMERON PALACIOS ####[facility] (DEFAULT)[address] [place] [address] CO2 [Moles/Vol] 28 mmol/L Normal 21-31 [facility] Comment on above: Performed By: #### CAMERON PALACIOS ####[facility] (DEFAULT)[address] [place] [address] Creatinine [Mass/Vol] 1.19 mg/dL Normal 0.50-1.20 [facility] Comment on above: Performed By: #### HEYDI PALACIOS7 ####[facility] (DEFAULT)[address] [place] [address] GFR/1.73 sq M.predicted among non-blacks MDRD (S/P/Bld) [Vol rate/Area] 47 mL/min/{1.73_m2} Low >=60 [facility] Comment on above: Result Comment: Repo rted eGFR is based on the CKD-EPI 2020 equation using creatinine, age, and sex. Performed By: #### HEYDI PALACIOS7 ####[facility] (DEFAULT)[address] [facility] [place] [address] Glucose [Mass/Vol] 90 mg/dL Normal Nonfastin -179 mg/dL; Fastin-99 [facility] Comment on above: Performed By: #### CAMERON PALACIOS ####[facility] (DEFAULT)[address] [place] [address] Osmolality [Osmolality] 304 mosm/kg Normal 278-305 [facility] Comment on above: Performed By: #### HEYDI PALACIOS7 ####[facility] (DEFAULT)[address] [place] [address] Potassium [Moles/Vol] 4.2 mmol/L Normal 3.5-5.0 [facility] Comment on above: Performed By: #### Jaiden NGUYEN CHM7 ####[facility] (DEFAULT)[address] [place] [address] Sodium [Moles/Vol] 142 mmol/L Normal 135-145 [facility] Comment on above: Performed By: #### Jaiden NGUYEN CHM7 ####[facility] (DEFAULT)[address] [place] [address] Urea nitrogen [Mass/Vol] 34 mg/dL High 7-25 [facility] Comment on above: Performed By: #### M HILARIA NGUYENM7 ####[facility] (DEFAULT)[address] [place] [address] Urea nitrogen/Creatinine [Mass ratio] 29 mg/mg Normal [facility] Comment on above: Performed By: #### M HILARIA NGUYENM7 ####[facility] (DEFAULT)[address] [place] [address] Anion gap [Moles/Vol] 14 mmol/L 7 - 17 mmol/L [facility] Chloride [Moles/Vol] 107 mmol/L 98 - 10 8 mmol/L [facility] CO2 [Moles/Vol] 27 mmol/L 21 - 31 mmol/L [facility] Creatinine [Mass/Vol] 1.19 mg/dL 0.50 - 1.20 mg/dL [facility] eGFR, CKD-EPI, Female 47 Low - PINF [facility] Glucose [Mass/Vol] 88 mg/dL 70 - 179 mg/dL [facility] Interpretation and review of laboratory results Abnormal [facility] Osmolality Calc [Osmolality] 307 High [facility] Potassium [Moles/Vol] 3.9 mmol/L 3.5 - 5.0 mmol/L [facility] Sodium [Moles/Vol] 144 mmol/L 135 - 145 mmol/L [facility] Urea nitrogen [Mass/Vol] 34 mg/dL High 7 - 25 mg/dL [facility] Urea nitrogen/Creatinine [Mass ratio] 29 mg/mg [facility] GLUCOSE POCon 08-06-2024 Glucose [Mass/Vol] 166 mg/dL 70 - 179 mg/dL [facility] Glucose [Mass/Vol] 106 mg/dL 70 - 179 mg/dL [facility] Glucose [Mass/Vol] 100 mg/dL 70 - 179 mg/dL [facility] POC Sample Type [facility] Glucose [Mass/Vol] 219 mg/dL High 70 - 179 mg/dL [facility] Interpretation and review of laboratory results Abnormal [facility] Glucose [Mass/Vol] 249 mg/dL High 70 - 179 mg/dL [facility] Glucose [Mass/Vol] 178 mg/dL 70 - 179 mg/dL [facility] Glucose [Mass/Vol] 194 mg/dL High 70 - 179 mg/dL [facility] Glucose [Mass/Vol] 93 mg/dL 70 - 179 mg/dL [facility] POC Sample Type [facility] IONIZED CALCIUM, WHOLE BLOOD Ordered By: Zuleika Blunt on 08-06-2024 Calcium.ionized (Bld) [Moles/Vol] 4.72 mg/dL 4.60 - 5.30 mg/dL [facility] Interpretation and review of laboratory results Normal [facility] MAGNESIUMon 08-06-2024 Magnesium [Mass/Vol] 1.8 mg/dL Normal 1.6-2.6 [facility] Comment on above: Performed By: #### M [facility] ####[facility] (DEFAULT)[address] [place] [address] Magnesium [Mass/Vol] 2.4 mg/dL 1.6 - 2 .6 mg/dL [facility] No Panel Informationon 08-06 POC Sample Type CAPBL [facility] Interpretation and review of laboratory results Abnormal [facility] POC Sample Type [facility] Interpretation and review of laboratory results Normal [facility] PHOSPHATE, INORGANICon 08-06 Phosphate [Mass/Vol] 3.2 mg/dL 2.2 - 4 .6 mg/dL [facility] RF videography Hypopharynx a nd Esophagus Views W liquid and paste contrast PO during swallowingon 08-06-2024 RADIOLOGY RADIOLOGY [facility] Radiology Study [facility] (narrative) [facility] Hypopharynx a nd Esophagus Views W liquid and paste contrast PO during swallowingOrdered By: Gerry Resendez on 08-06-2024 [facility] Work Phone: SPEECH MODIFIED BARIUM SWALL [...] for specific therapeutic recommendations, please see the gravity prospector report of the speech pathologist. Examination performed by ARCADIO Nicole, under the direct supervision of Gerry Resendez M.D., who was immediately available on site during the examination. I personally viewed and interpreted these images and I have reviewed and approved this report. Normal [facility] CBC,PLATELETSon 08-05-2024 Hematocrit (Bld) [Volume fraction] 44.0 % Normal 34.9-44.3 [facility] Comment on above: Performed By: #### B LDCULT #### [facility] (DEFAULT) [address] [place] [address] Hemoglobin (Bld) [Mass/Vol] 13.9 g/dL Normal 11.4-15.2 [facility] Comment on above: Performed By: #### B LDCULT #### [facility] (DEFAULT) [address] [place] [address] 85859 MCV (RBC) [Entitic vol] 92.2 fL Normal 79.6-97.[address] [facility] Comment on above: Performed By: #### B LDCULT #### [facility] (DEFAULT) [address] [place] [address] 46033 Mean Cell Hgb 29.1 pg Normal 25.9-33.9 [facility] Comment on above: Performed By: #### B LDCULT #### [facility] (DEFAULT) [address] [place] [address] 60465 Mean Cell Hgb Conc 31.6 g/dL Normal 31.4-35.9 [facility] Comment on above: Performed By: #### B LDCULT #### [facility] (DEFAULT) [address] [place] [address] 87335 Platelet mean volume (Bld) [Entitic vol] 10.7 fL Normal 8.5-12.2 [facility] Comment on above: Performed By: #### B LDCULT #### [facility] (DEFAULT) [address] [place] [address] 05187 Platelets (Bld) [#/Vol] 216 10*3/uL Normal 150-393 [facility] Comment on above: Performed By: #### B LDCULT #### [facility] (DEFAULT) [address] [place] [address] 59723 RBC (Bld) [#/Vol] 4.77 10*6/uL Normal 3.91-5.04 [facility] Comment on above: Performed By: #### B LDCULT #### [facility] (DEFAULT) [address] [place] [address] 65158 RBC Distribution 13.9 % Normal 10.8-14.9 [facility] Comment on above: Performed By: #### B LDCULT #### [facility] (DEFAULT) [address] [place] [address] 43407 WBC (Bld) [#/Vol] 12.14 10*3/uL High 3.99-11.19 [facility] Comment on above: Performed By: #### B LDCULT #### [facility] (DEFAULT) [address] [place] [address] 45465 Erythrocyte distribution width (RBC) [Ratio] 13.9 % 10.8 - 14.9 % [facility] Hematocrit (Bld) [Volume fraction] 39.6 % 34.9 - 44.3 % [facility] Hemoglobin (Bld) [Mass/Vol] 12.6 g/dL 11.4 - 15.2 g/dL [facility] Interpretation and review of laboratory results Normal [facility] MCH (RBC) [Entitic mass] 29.3 pg 25.9 - 33.9 pg [facility] MCHC (RBC) [Mass/Vol] 31.8 g/dL 31.4 - 35.9 g/dL [facility] MCV (RBC) [Entitic vol] 92.1 fL 79.6 - 97.7 fL [facility] Platelet mean volume (Bld) [Entitic vol] 10.7 fL 8.5 - 12.2 fL [facility] Platelets (Bld) [#/Vol] 198 10*3/uL 150 - 393 K/uL [facility] RBC (Bld) [#/Vol] 4.3 10*6/uL [facility] WBC (Bld) [#/Vol] 10.61 10*3/uL 3.99 - 11.19 K/uL [facility] Hematocrit (Bld) [Volume fraction] 39.6 % Normal 34.9-44.3 [facility] Comment on above: Performed By: #### H EMOGC ####[facility] (DEFAULT)[address] [place] [address] Hemoglobin (Bld) [Mass/Vol] 12.6 g/dL Normal 11.4-15.2 [facility] Comment on above: Performed By: #### H EMOGC ####[facility] (DEFAULT)[address] [place] [address] MCV (RBC) [Entitic vol] 92.1 fL Normal 79.6-97.[address] [facility] Comment on above: Performed By: #### H EMOGC ####[facility] (DEFAULT)[address] [place] [address] Mean Cell Hgb 29.3 pg Normal 25.9-33.9 [facility] Comment on above: Performed By: #### H EMOGC ####[facility] (DEFAULT)[address] [place] [address] Mean Cell Hgb Conc 31.8 g/dL Normal 31.4-35.9 [facility] Comment on above: Performed By: #### H EMOGC ####[facility] (DEFAULT)[address] [place] [address] Platelet mean volume (Bld) [Entitic vol] 10.7 fL Normal 8.5-12.2 [facility] Comment on above: Performed By: #### H EMOGC ####[facility] (DEFAULT)[address] [place] [address] Platelets (Bld) [#/Vol] 198 10*3/uL Normal 150-393 [facility] Comment on above: Performed By: #### H EMOGC ####[facility] (DEFAULT)[address] [place] [address] RBC (Bld) [#/Vol] 4.30 10*6/uL Normal 3.91-5.04 [facility] Comment on above: Performed By: #### H EMOGC ####[facility] (DEFAULT)[address] [place] [address] 71609 RBC Distribution 13.9 % Normal 10.8-14.9 [facility] Comment on above: Performed By: #### H EMO ####[facility] (DEFAULT)[address] [place] [address] 47765 WBC (Bld) [#/Vol] 10.61 10*3/uL Normal 3.99-11.19 [facility] Comment on above: Performed By: #### H EMO ####[facility] (DEFAULT)[address] [place] [address] 97723 CHEM 7 (LYTES,BUN,CREA,GLUC) on 08-05-2024 Anion gap [Moles/Vol] 14 mmol/L Normal 7-17 [facility] Comment on above: Performed By: #### S URGP #### [facility] (DEFAULT) [address] [place] [address] 85955 Chloride [Moles/Vol] 107 mmol/L Normal 98-108 [facility] Comment on above: Performed By: #### S URGP #### [facility] (DEFAULT) [address] [place] [address] 39433 CO2 [Moles/Vol] 27 mmol/L Normal 21-31 [facility] Comment on above: Performed By: #### S URGP #### [facility] (DEFAULT) [address] [place] [address] 91564 Creatinine [Mass/Vol] 1.19 mg/dL Normal 0.50-1.20 [facility] Comment on above: Performed By: #### S URGP #### [facility] (DEFAULT) [address] [place] [address] 89959 GFR/1.73 sq M.predicted among non-blacks MDRD (S/P/Bld) [Vol rate/Area] 47 mL/min/{1.73_m2} Low >=60 [facility] Comment on above: Result Comment: Repo rted eGFR is based on the CKD-EPI 2020 equation using creatinine, age, and sex. Performed By: #### S URGP #### [facility] (DEFAULT) [address] [place] [address] 87593 Glucose [Mass/Vol] 88 mg/dL Normal Nonfastin -179 mg/dL; Fastin-99 [facility] Comment on above: Performed By: #### S URGP #### [facility] (DEFAULT) [address] [place] [address] 26615 Osmolality [Osmolality] 307 mosm/kg High 278-305 [facility] Comment on above: Performed By: #### S URGP #### [facility] (DEFAULT) [address] [place] [address] 5[address] Potassium [Moles/Vol] 3.9 mmol/L Normal 3.5-5.0 [facility] Comment on above: Performed By: #### S URGP #### [facility] (DEFAULT) [address] [place] [address] 14904 Sodium [Moles/Vol] 144 mmol/L Normal 135-145 [facility] Comment on above: Performed By: #### S URGP #### [facility] (DEFAULT) [address] [place] [address] 65206 Urea nitrogen [Mass/Vol] 34 mg/dL High 7-25 [facility] Comment on above: Performed By: #### S URGP #### [facility] (DEFAULT) [address] [place] [address] 92640 Urea nitrogen/Creatinine [Mass ratio] 29 mg/mg Normal [facility] Comment on above: Performed By: #### S URGP #### [facility] (DEFAULT) [address] [place] [address] 61496 Anion gap [Moles/Vol] 14 mmol/L 7 - 17 mmol/L [facility] Chloride [Moles/Vol] 108 mmol/L 98 - 10 8 mmol/L [facility] CO2 [Moles/Vol] 25 mmol/L 21 - 31 mmol/L [facility] Creatinine [Mass/Vol] 1.45 mg/dL High 0.50 - 1.20 mg/dL [facility] eGFR, CKD-EPI, Female 37 Low - PINF [facility] Glucose [Mass/Vol] 242 mg/dL High 70 - 179 mg/dL [facility] Interpretation and review of laboratory results Abnormal [facility] Osmolality Calc [Osmolality] 315 High [facility] Potassium [Moles/Vol] 3.8 mmol/L 3.5 - 5.0 mmol/L [facility] Sodium [Moles/Vol] 143 mmol/L 135 - 145 mmol/L [facility] Urea nitrogen [Mass/Vol] 35 mg/dL High 7 - 25 mg/dL [facility] Urea nitrogen/Creatinine [Mass ratio] 24 mg/mg [facility] Anion gap [Moles/Vol] 14 mmol/L Normal 7-17 [facility] Comment on above: Performed By: #### X M #### [facility] (DEFAULT) [address] [place] [address] 48894 Chloride [Moles/Vol] 108 mmol/L Normal 98-108 [facility] Comment on above: Performed By: #### X M #### [facility] (DEFAULT) [address] [place] [address] 76615 CO2 [Moles/Vol] 25 mmol/L Normal 21-31 [facility] Comment on above: Performed By: #### X M #### [facility] (DEFAULT) [address] [place] [address] 99582 Creatinine [Mass/Vol] 1.45 mg/dL High 0.50-1.20 [facility] Comment on above: Performed By: #### X M #### [facility] (DEFAULT) [address] [place] [address] 38653 GFR/1.73 sq M.predicted among non-blacks MDRD (S/P/Bld) [Vol rate/Area] 37 mL/min/{1.73_m2} Low >=60 [facility] Comment on above: Result Comment: Repo rted eGFR is based on the CKD-EPI 2020 equation using creatinine, age, and sex. Performed By: #### X M #### [facility] (DEFAULT) [address] [place] [address] 95779 Glucose [Mass/Vol] 242 mg/dL High Nonfastin -179 mg/dL; Fastin-99 [facility] Comment on above: Performed By: #### X M #### [facility] (DEFAULT) [address] [place] [address] 73071 Osmolality [Osmolality] 315 mosm/kg High 278-305 [facility] Comment on above: Performed By: #### X M #### [facility] (DEFAULT) [address] [place] [address] 02477 Potassium [Moles/Vol] 3.8 mmol/L Normal 3.5-5.0 [facility] Comment on above: Performed By: #### X M #### [facility] (DEFAULT) [address] [address] Sodium [Moles/Vol] 143 mmol/L Normal 135-145 [facility] Comment on above: Performed By: #### X M #### [facility] (DEFAULT) [address] [place] [address] 46594 Urea nitrogen [Mass/Vol] 35 mg/dL High 7-25 [facility] Comment on above: Performed By: #### X M #### [facility] (DEFAULT) [address] [place] [address] 46567 Urea nitrogen/Creatinine [Mass ratio] 24 mg/mg Normal [facility] Comment on above: Performed By: #### X M #### [facility] (DEFAULT) [address] [address] Cardiac echo study Procedure Ordered By: Ezequiel Figueroa on 08-05-2024 Ao ASC index 1.56 cm/m2 [facility] Work Phone: [phone] Ao peak fidel 1.23 m/s [facility] Work Phone: [phone] Ao SOV index 1.56 cm/m2 [facility] Work Phone: [phone] Ao STJ index 1.36 cm/m2 [facility] Work Phone: [phone] Ao VTI 24.81 cm [facility] Work Phone: [phone] [facility] 2.97 [facility] Work Phone: [phone] AV LVOT peak gradient 4 mmHg [facility] Work Phone: [phone] AV mean gradient 4 mmHg [facility] Work Phone: [phone] AV peak gradient 6 mmHG [facility] Work Phone: [phone] AV valve area 2.72 cm2 [facility] Work Phone: [phone] AV Velocity Ratio 0.8 [facility] Work Phone: [phone] MARKUS (continuity Vmax) 2.55 cm2 [facility] Work Phone: [phone] MARKUS (continuity VTI) 2.72 cm2 [facility] Work Phone: [phone] MARKUS index (continuity Vmax) 1.34 m/s [facility] Work Phone: [phone] MARKUS index (continuity VTI) 1.43 cm2/m2 [facility] Work Phone: [phone] Avg e' pk fidel 0.09 m/s [facility] Work Phone: [phone] Body surface area Derived from formula 1.9 m2 [facility] Work Phone: [phone] BP EF 55 % [facility] Work Phone: [phone] DI (Vmax) 0.8 [facility] Work Phone: [phone] DI (VTI) 0.86 m/2 [facility] Work Phone: [phone] e' lateral pk fidel 0.0845 m[facility]s [facility] Work Phone: [phone] e' lateral pk fidel 0.08 m/s [facility] Work Phone: [phone] e' septal pk fidel 0.0953 m/s [facility] Work Phone: [phone] e' septal pk fidel 0.1 m/s [facility] Work Phone: [phone] EF SP 2CH 56 [facility] Work Phone: [phone] EF SP 4CH 51 [facility] Work Phone: [phone] EST RAP 3 mmHg [facility] Work Phone: [phone] EST RVSP 29 mmHg [facility] Work Phone: [phone] FS 31 % [facility] Work Phone: [phone] IVC ostium 1.64 cm [facility] Work Phone: [phone] IVS 1.14 cm [facility] Work Phone: [phone] LA area 4CH 29.07 cm2 [facility] Work Phone: [phone] LA ESV BP (MOD) 86 [facility]: [phone] LA ESV BP (MOD) index 45 mL/m2 [facility] Work Phone: [phone] LA ESV SP 2CH (MOD) 81 mL [facility] Work Phone: [phone] LA ESV SP 4CH (MOD) 93 mL [facility] Work Phone: [phone] LV EDV BP 88 mL [facility] Work Phone: [phone] LV EDV SP 2CH 85 mL [facility] Work Phone: [phone] LV EDV SP 4CH 86 mL [facility] Work Phone: [phone] LV ESV BP 40 mL [facility] Work Phone: [phone] LV ESV SP 2CH 37 mL [facility] Work Phone: [phone] LV ESV SP 4CH 42 mL [facility] Work Phone: [phone] LV mass 146.48 g [facility] Work Phone: [phone] LV Mass Index 77.1 g/m2 [facility] Work Phone: [phone] LV RWT 0.56 [facility] Work Phone: [phone] LV stroke volume BP (ml) 48 mL [facility] Work Phone: [phone] LV stroke volume index BP 25.26 mL/m2 [facility] Work Phone: [phone] LVIDD 3.93 cm [facility] Work Phone: [phone] LVIDS 2.7 cm [facility] Work Phone: [phone] LVOT area 3.17 cm2 [facility] Work Phone: [phone] LVOT diameter 2.01 cm [facility] Work Phone: [phone] LVOT peak fidel 0.99 m/s [facility] Work Phone: [phone] LVOT peak VTI 21.3 cm [facility] Work Phone: [phone] LVOT stroke volume 68 cm3 [facility] Work Phone: [phone] LVOT stroke volume index 35.55 ml/m2 [facility] Work Phone: [phone] MV mean gradient 3 [facility] MV peak gradient 6 [facility] Work Phone: [phone] MV valve area by continuity eq 2.61 cm2 [facility] Work Phone: [phone] MV VTI 25.92 cm [facility] Work Phone: [phone] MVA (continuity VTI) 2.6 cm [facility] Work Phone: [phone] [facility]SU AV VTI RATIO PRE STRESS 0.86 [facility] Work Phone: [phone] OSU ECHO LV BIPLANE SYSTOLIC VOLUME INDEX 21.05 mL/m2 [facility] Work Phone: [phone] [facility] ECHO LV BP DIASTOLIC VOLUME INDEX 46.32 mL/m2 [facility] Work Phone: [phone] PV mean gradient 3 mmHg [facility] Work Phone: [phone] PV peak gradient 6 mmHg [facility] Work Phone: [phone] PV PK FIDEL 1.23 m/s [facility] Work Phone: [phone] PW 1.11 cm [facility] Work Phone: [phone] RA area 4CH (MOD) 22.74 cm2 [facility] Work Phone: [phone] RA vol index 4CH (MOD) 36.32 mL/m2 [facility] Work Phone: [phone] Right atrium volume 4 chamber method of disks 69 mL [facility] Work Phone: RV Area diastolic 17.5 cm2 [facility] Work Phone: RV Area systolic 11.9 cm2 [facility] Work Phone: [phone] RV basal diam 4.56 cm [facility] Work Phone: [phone] RV Fractional area change 32 % [facility] Work Phone: RV long diam 6.91 cm [facility] Work Phone: RV mid diam 2.91 cm [facility] Work Phone: [phone] RV S' 12.81 cm/s [facility] Work Phone: RVOT peak gradient 5 mmHg [facility] Work Phone: [phone] RVOT peak fidel 1.07 m/s [facility] Work Phone: RVOT peak VTI 20.1 cm [facility] Work Phone: Sinus 2.97 cm [facility] Work Phone: STJ 2.58 cm [facility] Work Phone: Stroke Volume 68 cm/mL [facility] Work Phone: Stroke volume index 36 [facility] Work Phone: TAPSE 2.08 cm [facility] Work Phone: TR pk grad 26 mmHg [facility] Work Phone: TR pk fidel 2.53 m/s [facility] Work Phone: [facility] Work Phone: Cardiac echo study Procedure on 08-05-2024 [facility] Radiology Study observation (narrative) [facility] ECHOCARDIOGRAMon 08-05-2024 Echocardiography ? No [...] from the original result were not included. [facility] Facility [facility] Patient Information Patient Name ArmandOctober Legal [...] Role Read Date Ezequiel Figueroa DO Echo Squire 08/05/2024 Left Heart Measurements LV - Systole [...] long di (more content not included)... Normal [facility] GLUCOSE POCon 08-05-2024 Glucose [Mass/Vol] 228 mg/dL High 70 - 179 mg/dL [facility] Interpretation and review of laboratory results Abnormal [facility] POC Sample Type CAPBL [facility] IONIZED CALCIUM, WHOLE BLOOD on 08-05-2024 ICA 4.72 mg/dL Normal 4.60-5.30 [facility] Comment on above: Performed By: #### S URGP #### [facility] (DEFAULT) [address] [place] [address] ICA 4.69 mg/dL Normal 4.60-5.30 [facility] Comment on above: Performed By: #### S URGP #### [facility] (DEFAULT) [address] [place] [address] IONIZED CALCIUM, WHOLE BLOOD Ordered By: Jairo Layton on 08-05-2024 Calcium.ionized (Bld) [Moles/Vol] 4.69 mg/dL 4.60 - 5.30 mg/dL [facility] Interpretation and review of laboratory results Normal [facility] MAGNESIUMon 08-05-2024 Magnesium [Mass/Vol] 2.4 mg/dL Normal 1.6-2.6 [facility] Comment on above: Performed By: #### S URGP #### [facility] (DEFAULT) [address] [place] [address] 97294 Magnesium [Mass/Vol] 1.8 mg/dL 1.6 - 2 .6 mg/dL [facility] Magnesium [Mass/Vol] 1.8 mg/dL Normal 1.6-2.6 [facility] Comment on above: Performed By: #### X M #### [facility] (DEFAULT) [address] [place] [id number] No Panel Informationon 08-05 Interpretation and review of laboratory results Normal [facility] PHOSPHATE, INORGANICon 08-05 Phosphorous 3.2 mg/dL Normal 2.2-4.6 [facility] Comment on above: Performed By: #### S URGP #### [facility] (DEFAULT) [address] [place] [address] Phosphate [Mass/Vol] 2.7 mg/dL 2.2 - 4 .6 mg/dL [facility] Phosphorous 2.7 mg/dL Normal 2.2-4.6 [facility] Comment on above: Performed By: #### X M #### [facility] (DEFAULT) [address] [place] [address] [facility] FACTOR AGOrde red By: Madhavi Mcelroy on 08-05-2024 Interpretation and review of laboratory results Abnormal [facility] vWf Ag actual/normal IA (PPP) [Relative mass conc] 230 % High 50 - 180 % [facility] CBC,PLATELETSon 08-04-2024 Erythrocyte distribution width (RBC) [Ratio] 13.7 % 10.8 - 14.9 % [facility] Hematocrit (Bld) [Volume fraction] 40.8 % 34.9 - 44.3 % [facility] Hemoglobin (Bld) [Mass/Vol] 12.7 g/dL 11.4 - 15.2 g/dL [facility] Interpretation and review of laboratory results Abnormal [facility] MCH (RBC) [Entitic mass] 28.7 pg 25.9 - 33.9 pg [facility] MCHC (RBC) [Mass/Vol] 31.1 g/dL Low 31.4 - 35.9 g/dL [facility] MCV (RBC) [Entitic vol] 92.1 fL 79.6 - 97.7 fL [facility] Platelet mean volume (Bld) [Entitic vol] 10.8 fL 8.5 - 12.2 fL [facility] Platelets (Bld) [#/Vol] 228 10*3/uL 150 - 393 K/uL [facility] RBC (Bld) [#/Vol] 4.43 10*6/uL [facility] WBC (Bld) [#/Vol] 11.41 10*3/uL High 3.99 - 11.19 K/uL [facility] Hematocrit (Bld) [Volume fraction] 40.8 % Normal 34.9-44.3 [facility] Comment on above: Performed By: #### H EMOGC #### [facility] (DEFAULT) [address] [place] [address]686 Hemoglobin (Bld) [Mass/Vol] 12.7 g/dL Normal 11.4-15.2 [facility] Comment on above: Performed By: #### H EMOGC #### [facility] (DEFAULT) [address] [place] [address] 75277 MCV (RBC) [Entitic vol] 92.1 fL Normal 79.6-97.[address] [facility] Comment on above: Performed By: #### H EMOGC #### [facility] (DEFAULT) [address] [place] [address] 10893 Mean Cell Hgb 28.7 pg Normal 25.9-33.9 [facility] Comment on above: Performed By: #### H EMOGC #### [facility] (DEFAULT) [address] [place] [address] 14095 Mean Cell Hgb Conc 31.1 g/dL Low 31.4-35.9 [facility] Comment on above: Performed By: #### H EMOGC #### [facility] (DEFAULT) [address] [place] [address] 32857 Platelet mean volume (Bld) [Entitic vol] 10.8 fL Normal 8.5-12.2 [facility] Comment on above: Performed By: #### H EMOGC #### [facility] (DEFAULT) [address] [address] Platelets (Bld) [#/Vol] 228 10*3/uL Normal 150-393 [facility] Comment on above: Performed By: #### H EMOGC #### [facility] (DEFAULT) [address] [place] [address] 11021 RBC (Bld) [#/Vol] 4.43 10*6/uL Normal 3.91-5.04 [facility] Comment on above: Performed By: #### H [facility] #### [facility] (DEFAULT) [address] [place] [address] RBC Distribution 13.7 % Normal 10.8-14.9 [facility] Comment on above: Performed By: #### H [facility] #### [facility] (DEFAULT) [address] [place] [address] WBC (Bld) [#/Vol] 11.41 10*3/uL High 3.99-11.19 [facility] Comment on above: Performed By: #### H [facility] #### [facility] (DEFAULT) [address] [place] [address] CHEM 7 (LYTES,BUN,CREA,GLUC) Ordered By: Lizette Canseco on 08-04-2024 Anion gap [Moles/Vol] 16 mmol/L 7 - 17 mmol/L [facility] Chloride [Moles/Vol] 109 mmol/L High 98 - 10 8 mmol/L [facility] CO2 [Moles/Vol] 24 mmol/L 21 - 31 mmol/L [facility] Creatinine [Mass/Vol] 1.47 mg/dL High 0.50 - 1.20 mg/dL [facility] eGFR, CKD-EPI, Female 36 Low - PINF [facility] Glucose [Mass/Vol] 181 mg/dL High 70 - 179 mg/dL [facility] Interpretation and review of laboratory results Abnormal [facility] Osmolality Calc [Osmolality] 312 High [facility] Potassium [Moles/Vol] 4 mmol/L 3.5 - 5.0 mmol/L [facility] Sodium [Moles/Vol] 145 mmol/L 135 - 145 mmol/L [facility] Urea nitrogen [Mass/Vol] 26 mg/dL High 7 - 25 mg/dL [facility] Urea nitrogen/Creatinine [Mass ratio] 18 mg[facility] 7 (LYTES,BUN,CREA,GLUC) on 08-04-2024 Anion gap [Moles/Vol] 16 mmol/L Normal 7-17 [facility] Comment on above: Performed By: #### S URGP #### [facility] (DEFAULT) [address] [place] [address] 16926 Chloride [Moles/Vol] 109 mmol/L High 98-108 [facility] Comment on above: Performed By: #### S URGP #### [facility] (DEFAULT) [address] [place] [address] CO2 [Moles/Vol] 24 mmol/L Normal 21-31 [facility] Comment on above: Performed By: #### S URGP #### [facility] (DEFAULT) [address] [place] [address] 30268 Creatinine [Mass/Vol] 1.47 mg/dL High 0.50-1.20 [facility] Comment on above: Performed By: #### S URGP #### [facility] (DEFAULT) [address] [place] [address] 21773 GFR/1.73 sq M.predicted among non-blacks MDRD (S/P/Bld) [Vol rate/Area] 36 mL/min/{1.73_m2} Low >=60 [facility] Comment on above: Result Comment: Repo rted eGFR is based on the CKD-EPI 2020 equation using creatinine, age, and sex. Performed By: #### S URGP #### [facility] [place] (DEFAULT) [address] [place] [address] 17570 Glucose [Mass/Vol] 181 mg/dL High Nonfastin -179 mg/dL; Fastin-99 [facility] Comment on above: Performed By: #### S URGP #### [facility] (DEFAULT) [address] [address] Osmolality [Osmolality] 312 mosm/kg High 278-305 [facility] Comment on above: Performed By: #### S URGP #### [facility] [place] (DEFAULT) [address] [place] [address]282 Potassium [Moles/Vol] 4.0 mmol/L Normal 3.5-5.0 [facility] Comment on above: Performed By: #### S URGP #### [facility] (DEFAULT) [address] [place] [address] 05129 Sodium [Moles/Vol] 145 mmol/L Normal 135-145 [facility] Comment on above: Performed By: #### S URGP #### [facility] (DEFAULT) [address] [place] [address] 89404 Urea nitrogen [Mass/Vol] 26 mg/dL High 7-25 [facility] Comment on above: Performed By: #### S URGP #### [facility] (DEFAULT) [address] [place] [address] 46764 Urea nitrogen/Creatinine [Mass ratio] 18 mg/mg Normal [facility] Comment on above: Performed By: #### S URGP #### [facility] (DEFAULT) [address] [place] [address] HEAD WITHOUT CONTRASTon 0 08-04-2024 CT [...] sinuses are clear. IMPRESSION: Stable exam. Normal [facility] CT Head WO contraston 2024 RADIOLOGY RADIOLOGY [facility] CT Head WO contrastOrdered B y: Chirag Mendenhall on 08-04-2024 [facility] Work Phone: GLUCOSE POCon 08-04-2024 Glucose [Mass/Vol] 227 mg/dL High 70 - 179 mg/dL [facility] Interpretation and review of laboratory results Abnormal [facility] POC Sample Type [facility] Glucose [Mass/Vol] 235 mg/dL High 70 - 179 mg/dL [facility] Interpretation and review of laboratory results Abnormal [facility] POC Sample Type [facility] Glucose [Mass/Vol] 215 mg/dL High 70 - 179 mg/dL [facility] Interpretation and review of laboratory results Abnormal [facility] POC Sample Type CAPBL [facility] Glucose [Mass/Vol] 178 mg/dL 70 - 179 mg/dL [facility] Glucose [Mass/Vol] 157 mg/dL 70 - 179 mg/dL [facility] Glucose [Mass/Vol] 271 mg/dL High 70 - 179 mg/dL [facility] Glucose [Mass/Vol] 267 mg/dL High 70 - 179 mg/dL [facility] Glucose [Mass/Vol] 246 mg/dL High 70 - 179 mg/dL [facility] IONIZED CALCIUM, WHOLE BLOOD Ordered By: Laura Rodriguez on 08-04-2024 Calcium.ionized (Bld) [Moles/Vol] 4.8 mg/dL 4.60 - 5.30 mg/dL [facility] Interpretation and review of laboratory results Normal [facility] IONIZED CALCIUM, WHOLE BLOOD on 08-04-2024 ICA 4.80 mg/dL Normal 4.60-5.30 [facility] Comment on above: Performed By: #### T YPEC #### [facility] (DEFAULT) [address] [place] [address] 52054 MAGNESIUMon 08-04-2024 Magnesium [Mass/Vol] 1.9 mg/dL 1.6 - 2 .6 mg/dL [facility] Magnesium [Mass/Vol] 1.9 mg/dL Normal 1.6-2.6 [facility] Comment on above: Performed By: #### X M #### [facility] (DEFAULT) [address] [place] [address] 770[address] No Panel Informationon 08-04 POC Sample Type CAPBL [facility] Interpretation and review of laboratory results Abnormal [facility] Interpretation and review of laboratory results Normal [facility] PHOSPHATE, INORGANICon 08-04 Phosphate [Mass/Vol] 2.8 mg/dL 2.2 - 4 .6 mg/dL [facility] Phosphorous 2.8 mg/dL Normal 2.2-4.6 [facility] Comment on above: Performed By: #### X M #### [facility] (DEFAULT) [address] [place] [address] 10588 SODIUMon 08-04-2024 Interpretation and review of laboratory results Normal [facility] Sodium [Moles/Vol] 142 mmol/L 135 - 145 mmol/L [facility] Sodium [Moles/Vol] 142 mmol/L Normal 135-145 [facility] Comment on above: Order Comment: While on 3% Hypertonic Saline. Performed By: #### S URGP #### [facility] (DEFAULT) [address] [place] [address] 21345 Interpretation and review of laboratory results Normal [facility] Sodium [Moles/Vol] 141 mmol/L 135 - 145 mmol/L [facility] Sodium [Moles/Vol] 141 mmol/L Normal 135-145 [facility] Comment on above: Order Comment: 2 [...] bottle. Performed By: #### B LDCULT #### [facility] (DEFAULT) [address] [place] [address] Interpretation and review of laboratory results Normal [facility] Sodium [Moles/Vol] 143 mmol/L 135 - 145 mmol/L [facility] Sodium [Moles/Vol] 143 mmol/L Normal 135-145 [facility] Comment on above: Order Comment: While on 3% Hypertonic Saline. Performed By: #### H EMO #### [facility] (DEFAULT) [address] [place] [address] ABORH TYPE RECONFIRMATIONon 08-03-2024 ABO/RH(D) TYPE Negative [facility] ABO/RH(D) TYPE Negative Normal [facility] Comment on above: Performed By: #### T YPEC #### [facility] (DEFAULT) [address] [place] [address]68 CBC,PLATELETSon 08-03-2024 Erythrocyte distribution width (RBC) [Ratio] 13.2 % 10.8 - 14.9 % [facility] Hematocrit (Bld) [Volume fraction] 42.8 % 34.9 - 44.3 % [facility] Hemoglobin (Bld) [Mass/Vol] 13.5 g/dL 11.4 - 15.2 g/dL [facility] Interpretation and review of laboratory results Normal [facility] MCH (RBC) [Entitic mass] 29.2 pg 25.9 - 33.9 pg [facility] MCHC (RBC) [Mass/Vol] 31.5 g/dL 31.4 - 35.9 g/dL [facility] MCV (RBC) [Entitic vol] 92.4 fL 79.6 - 97.7 fL [facility] Platelet mean volume (Bld) [Entitic vol] 11.2 fL 8.5 - 12.2 fL [facility] Platelets (Bld) [#/Vol] 227 10*3/uL 150 - 393 K/uL [facility] RBC (Bld) [#/Vol] 4.63 10*6/uL [facility] WBC (Bld) [#/Vol] 8.43 10*3/uL 3.99 - 11.19 K/uL [facility] Hematocrit (Bld) [Volume fraction] 42.8 % Normal 34.9-44.3 [facility] Comment on above: Performed By: #### X M #### [facility] (DEFAULT) [address] [address] Hemoglobin (Bld) [Mass/Vol] 13.5 g/dL Normal 11.4-15.2 [facility] Comment on above: Performed By: #### X M #### [facility] (DEFAULT) [address] [place] [address] 66235 MCV (RBC) [Entitic vol] 92.4 fL Normal 79.6-97.[address] [facility] Comment on above: Performed By: #### X M #### [facility] (DEFAULT) [address] [address] Mean Cell Hgb 29.2 pg Normal 25.9-33.9 [facility] Comment on above: Performed By: #### X M #### [facility] (DEFAULT) [address] [place] [address] 69736 Mean Cell Hgb Conc 31.5 g/dL Normal 31.4-35.9 [facility] Comment on above: Performed By: #### X M #### [facility] (DEFAULT) [address] [place] [address] 46142 Platelet mean volume (Bld) [Entitic vol] 11.2 fL Normal 8.5-12.2 [facility] Comment on above: Performed By: #### X M #### [facility] (DEFAULT) [address] [place] [address] 51453 Platelets (Bld) [#/Vol] 227 10*3/uL Normal 150-393 [facility] Comment on above: Performed By: #### X M #### [facility] (DEFAULT) [address] [place] [address] 12299 RBC (Bld) [#/Vol] 4.63 10*6/uL Normal 3.91-5.04 [facility] Comment on above: Performed By: #### X M #### [facility] (DEFAULT) [address] [place] [address] 97394 RBC Distribution 13.2 % Normal 10.8-14.9 [facility] Comment on above: Performed By: #### X M #### [facility] (DEFAULT) [address] [place] [address] 63512 WBC (Bld) [#/Vol] 8.43 10*3/uL Normal 3.99-11.19 [facility] Comment on above: Performed By: #### X M #### [facility] (DEFAULT) [address] [place] [address] 15768 CHEM 7 (LYTES,BUN,CREA,GLUC) on 08-03-2024 Anion gap [Moles/Vol] 16 mmol/L 7 - 17 mmol/L [facility] Chloride [Moles/Vol] 103 mmol/L 98 - 10 8 mmol/L [facility] CO2 [Moles/Vol] 23 mmol/L 21 - 31 mmol/L [facility] Creatinine [Mass/Vol] 1.35 mg/dL High 0.50 - 1.20 mg/dL [facility] eGFR, CKD-EPI, Female 40 Low - PINF [facility] Glucose [Mass/Vol] 151 mg/dL 70 - 179 mg/dL [facility] Interpretation and review of laboratory results Abnormal [facility] Osmolality Calc [Osmolality] 295 [facility] Potassium [Moles/Vol] 4.3 mmol/L 3.5 - 5.0 mmol/L [facility] Sodium [Moles/Vol] 138 mmol/L 135 - 145 mmol/L [facility] Urea nitrogen [Mass/Vol] 18 mg/dL 7 - 25 mg/dL [facility] Urea nitrogen/Creatinine [Mass ratio] 13 mg/mg [facility] Anion gap [Moles/Vol] 16 mmol/L Normal 7-17 [facility] Comment on above: Performed By: #### S URGP #### [facility] (DEFAULT) [address] [address] Chloride [Moles/Vol] 103 mmol/L Normal 98-108 [facility] Comment on above: Performed By: #### S URGP #### [facility] (DEFAULT) [address] [address] CO2 [Moles/Vol] 23 mmol/L Normal 21-31 [facility] Comment on above: Performed By: #### S URGP #### [facility] (DEFAULT) [address] [address] Creatinine [Mass/Vol] 1.35 mg/dL High 0.50-1.20 [facility] Comment on above: Performed By: #### S URGP #### [facility] (DEFAULT) [address] [address] GFR/1.73 sq M.predicted among non-blacks MDRD (S/P/Bld) [Vol rate/Area] 40 mL/min/{1.73_m2} Low >=60 [facility] Comment on above: Result Comment: Repo rted eGFR is based on the CKD-EPI 2020 equation using creatinine, age, and sex. Performed By: #### S URGP #### [facility] [place] [facility] (DEFAULT) [address] [place] [address] Glucose [Mass/Vol] 151 mg/dL Normal Nonfastin -179 mg/dL; Fastin-99 [facility] Comment on above: Performed By: #### S URGP #### [facility] [place] [facility] (DEFAULT) [address] [place] [address]20 Osmolality [Osmolality] 295 mosm/kg Normal 278-305 [facility] Comment on above: Performed By: #### S URGP #### [facility] (DEFAULT) [address] [place] [place] [address] Potassium [Moles/Vol] 4.3 mmol/L Normal 3.5-5.0 [facility] Comment on above: Result Comment: Spec imen slightly hemolyzed. Potassium results may be falsey elevated by more than 0.5 mmol/L. Consider recollection. Performed By: #### S URGP #### U [facility] (DEFAULT) [address] [place] [address] Sodium [Moles/Vol] 138 mmol/L Normal 135-145 [facility] Comment on above: Performed By: #### S URGP #### U [facility] (DEFAULT) [address] [place] [address] 83111 Urea nitrogen [Mass/Vol] 18 mg/dL Normal 7-25 [facility] Comment on above: Performed By: #### S URGP #### [facility] (DEFAULT) [address] [place] [address] 12801 Urea nitrogen/Creatinine [Mass ratio] 13 mg/mg Normal [facility] Comment on above: Performed By: #### S URGP #### U [facility] (DEFAULT) [address] [place] [address] CHEST WITH CONTRAST VASCU LAR TRAUMAon [...] have reviewed and approved this report. Normal [facility] CT Cervical spine WO contras ton 08-03-2024 RADIOLOGY RADIOLOGY [facility] CT Cervical spine WO contras tOrdered By: Alissa Chun on 08-03-2024 [facility] Work Phone: CT Chest W contrast Seth RADIOLOGY RADIOLOGY [facility] CT Chest W contrast IVOrdere d By: Kayla Newell on 08-03-2024 [facility] Work Phone: CT HEAD WITHOUT CONTRASTon [...] since the MRI from earlier today Normal [facility] CT Head WO contraston 2024 Radiology Study observation (narrative) [facility] RADIOLOGY RADIOLOGY [facility] Radiology Study observation (narrative) [facility] CT ORBITS WITHOUT CONTRASTon 08-03-2024 CT ORBITS [...] basal ganglia hyperdensity concerning for hemorrhage. Normal [facility] CT Orbit WO contraston 08-03 RADIOLOGY RADIOLOGY [...] No evidence of acute fractures identified Normal [facility] EXTRA MICROon 08-03-2024 [facility] GLUCOSE POCon 08-03-2024 Glucose [Mass/Vol] 161 mg/dL 70 - 179 mg/dL [facility] POC Sample Type CAPBL [facility] IONIZED CALCIUM, WHOLE BLOOD Ordered By: Alejandra Ness on 08-03-2024 Calcium.ionized (Bld) [Moles/Vol] 4.24 mg/dL Low 4.60 - 5.30 mg/dL [facility] Interpretation and review of laboratory results Abnormal [facility] IONIZED CALCIUM, WHOLE BLOOD on 08-03-2024 ICA 4.24 mg/dL Low 4.60-5.30 [facility] Comment on above: Performed By: #### H [facility] #### [facility] (DEFAULT) [address] [place] [address]24 MAGNESIUMon 08-03-2024 Magnesium [Mass/Vol] 2.1 mg/dL 1.6 - 2 .6 mg/dL [facility] Magnesium [Mass/Vol] 2.1 mg/dL Normal 1.6-2.6 [facility] Comment on above: Performed By: #### S URGP #### [facility] (DEFAULT) [address] [place] [address] MR Brain WO contraston 08-03 RADIOLOGY RADIOLOGY [facility] Radiology Study observation (narrative) [facility] MR Cervical spine WO contras ton 08-03-2024 RADIOLOGY RADIOLOGY [facility] Radiology Study observation (narrative) [facility] MR Cervical spine WO contras tOrdered By: Kuldeep Tavares on 08-03-2024 [facility] Work Phone: MRI BRAIN WITHOUT CONTRASTon [...] tiny 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 Normal [facility] MRI SPINE CERVICAL WITHOUT C ONTRASTon 08-03-2024 [...] have reviewed and approved this report. Normal [facility] NT-PRO B-TYPE NATRIURETIC PE PTIDEon 08-03-2024 Interpretation and review of laboratory results Abnormal [facility] Natriuretic peptide.B prohormone N-Terminal IA [Mass/Vol] 1115 pg/mL High NINF - 540 pg/mL [facility] No Panel Informationon 08-03 RADIOLOGY RADIOLOGY [facility] Interpretation and review of laboratory results Normal [facility] No Panel InformationOrdered By: Richard Sánchez on 08-03-2024 [facility] Work Phone: PHOSPHATE, INORGANICon 08-03 Phosphate [Mass/Vol] 3.5 mg/dL 2.2 - 4 .6 mg/dL [facility] Phosphorous 3.5 mg/dL Normal 2.2-4.6 [facility] Comment on above: Performed By: #### S URGP #### [facility] (DEFAULT) [address] [place] [address] SCREEN: MRSA/MSSAOrdered By: Gail Collado on 08-03-2024 Interpretation and review of laboratory results Normal [facility] Methicillin Resistant S. Aureus By Pcr Negative Negative [facility] Staphylococcus Aureus By Pcr Negative Negative [facility] SODIUMon 08-03-2024 Interpretation and review of laboratory results Normal [facility] Sodium [Moles/Vol] 139 mmol/L 135 - 145 mmol/L [facility] Sodium [Moles/Vol] 139 mmol/L Normal 135-145 [facility] Comment on above: Order Comment: While on 3% Hypertonic Saline. Performed By: #### N AO ####[facility] (DEFAULT)[address] [place] [address] Interpretation and review of laboratory results Abnormal [facility] Sodium [Moles/Vol] 134 mmol/L Low 135 - 145 mmol/L [facility] Sodium [Moles/Vol] 134 mmol/L Low 135-145 [facility] Comment on above: Order Comment: While on 3% Hypertonic Saline. Performed By: #### H [facility] #### [facility] (DEFAULT) [address] [place] [address] XR ABDOMEN 1 VIEW PORTABLEon 08-03-2024 XR [...] proximal second portion of the duodenum. Normal [facility] XR Abdomen Single viewon RADIOLOGY RADIOLOGY [facility] Radiology Study observation (narrative) [facility] XR Abdomen Single viewOrdere d By: Huey Gibson on 08-03-2024 [facility] XR ELBOW RIGHT 2 VIEWSon XR ELBOW RIGHT 2 VIEWS EXAM: XR ELBOW RI GHT 2 VIEWS, XR HUMERUS RIGHT 2+ VIEWS, XR WRIST RIGHT 3+ VIEWS, 08/02/2024 23:24 PM (accession [id number]), 08/02/2024 23:24 PM (accession [id number]), 08/02/2024 23:23 PM (accession [id number]) COMPARISON: No prior studies available for comparison. [...] dislocation. IMPRESSION: No acute osseous abnormality. Normal [facility] XR HUMERUS RIGHT 2+ VIEWSon 08-03-2024 XR HUMERUS RIGHT 2+ VIEWS EXAM: XR ELBOW RIGHT 2 VIEWS, XR HUMERUS RIGHT 2+ VIEWS, XR WRIST RIGHT 3+ VIEWS, 08/02/2024 23:24 PM (accession [id number]), 08/02/2024 23:24 PM (accession [id number]), 08/02/2024 23:23 PM (accession [id number]) COMPARISON: No prior studies available for comparison. [...] dislocation. IMPRESSION: No acute osseous abnormality. Normal [facility] XR WRIST RIGHT 3+ VIEWSon XR WRIST RIGHT 3+ VIEWS EXAM: XR ELBOW R IGHT 2 VIEWS, XR HUMERUS RIGHT 2+ VIEWS, XR WRIST RIGHT 3+ VIEWS, 08/02/2024 23:24 PM (accession [id number]), 08/02/2024 23:24 PM (accession [id number]), 08/02/2024 23:23 PM (accession [id number]) COMPARISON: No prior studies available for comparison. [...] dislocation. IMPRESSION: No acute osseous abnormality. Normal [facility] 12 Lead EKGon 08-02-2024 12 Lead EKG [facility] [address] [place] [address] 12 Lead EKG 08/02/24 1309 MR#: [id number] Acct: [id number] Name: LINDSAY ACUNA Rep #: [id number] : 1945 78 From: Mj Benavides MD [...] ECG Confirmed by MAKAYLA LAWSON, MJ ([id number]), book or script editor NAIMA BEARDEN ([id number]) on 08/05/2024 6:47:07 AM Referred By: Confirmed By: MJ BENAVIDES MD 08/05/24 0647 Date Mj Benavides MD CC: Dr. Pieter Morgan MD; Dr. Kameron Caruso MD Signed Normal [facility] Absolute lymphocyte countOrd ered By: Pieter Morgan on 08-02-2024 Lymphocytes Auto (Unsp spec) [#/Vol] 1.56 10*3/uL 0.83-4.51 [facility] Absolute neutrophil countOrd ered By: Pieter Morgan on 08-02-2024 Neutrophils (Bld) [#/Vol] 6.2 10*3/uL 2.0-7.7 [facility] Activated partial thrombopla stin time (aPTT) in platelet poor plasma by coagulation aOrdered By: Pieter Morgan on 08-02-2024 aPTT Coag (PPP) [Time] 28.4 s 24.1-36.2 [facility] Anion gap in Serum or Plasma Ordered By: Pieter Morgan on 08-02-2024 Anion gap [Moles/Vol] 12 mmol/L 5- [facility] Automated lymphocyte count a s percentage of total leukocytesOrdered By: Pieter Morgan on 08-02-2024 Lymphocytes/100 WBC Auto (Unsp spec) 17.9 % Low 19- [facility] BUN/creatinine ratioOrdered By: Pieter Morgan on 08-02-2024 Urea nitrogen/Creatinine [Mass ratio] 11.6 mg/mg - [facility] Basic Metabolic Profile (BMP )on 08-02-2024 BUN/CRE 11.6 RATIO Normal - [facility] Comment on above: Performed By: #### L 300.4310, L501.4021, L300.3900, L500.2500, L100.0100 #### [facility] [address] [place], [address] Calcium [Mass/Vol] 9.0 mg/dL Normal 7.6-11.0 [facility] Comment on above: Performed By: #### L 300.4310, L501.4021, L300.3900, L500.2500, L100.0100 #### [facility] [address] [place], [address] Chloride [Moles/Vol] 98 mmol/L Normal 98-108 [facility] Comment on above: Performed By: #### L 300.4310, L501.4021, L300.3900, L500.2500, L100.0100 #### [facility] [address] [place], [address] CO2 [Moles/Vol] 22.0 mmol/L Normal 21.0-32.0 [facility] Comment on above: Performed By: #### L 300.4310, L501.4021, L300.3900, L500.2500, L100.0100 #### [facility] [address] [place], [address] Creatinine [Mass/Vol] 1.74 mg/dL High 0.70-1.20 [facility] Comment on above: Performed By: #### L 300.4310, L501.4021, L300.3900, L500.2500, L100.0100 #### [facility] [address] [place], [address] ECRCL 27.14 ml/min Low 50-250 [facility] Comment on above: Performed By: #### L 300.4310, L501.4021, L300.3900, L500.2500, L100.0100 #### [facility] [address] [place], [address] GAP 12 Normal 5-15 [facility] Comment on above: Performed By: #### L 300.4310, L501.4021, L300.3900, L500.2500, L100.0100 #### [facility] [address] [place], [address] GFR/1.73 sq M.predicted among non-blacks MDRD (S/P/Bld) [Vol rate/Area] 29 mL/min/{1.73_m2} Low >60 [facility] Comment on above: Result Comment: mL/m in/1.73m2 CKD-EPI Creatinine Equation (2020) Performed By: #### L 300.4310, L501.4021, L300.3900, L500.2500, L100.0100 #### [facility] [address] [place], [address] Glucose [Mass/Vol] 235 mg/dL High 70-99 [facility] Comment on above: Performed By: #### L 300.4310, L501.4021, L300.3900, L500.2500, L100.0100 #### [facility] [address] [place], [address] Potassium [Moles/Vol] 4.2 mmol/L Normal 3.3-5.1 [facility] Comment on above: Performed By: #### L 300.4310, L501.4021, L300.3900, L500.2500, L100.0100 #### [facility] [address] [place], [address] Sodium [Moles/Vol] 132 mmol/L Low 133-145 [facility] Comment on above: Performed By: #### L 300.4310, L501.4021, L300.3900, L500.2500, L100.0100 #### [facility] [address] [place], [address] Urea nitrogen [Mass/Vol] 20 mg/dL High 4-19 [facility] Comment on above: Performed By: #### L 300.4310, L501.4021, L300.3900, L500.2500, L100.0100 #### [facility] [address] [place], [address] Basophil percentageOrdered B y: Pieter Morgan on 08-02-2024 Basophils/100 WBC (Bld) 0.5 % 0-1 [facility] CBC W/Diff, Automatedon 07-14 Absolute Lymph 1.56 X10 3/uL Normal 0.83-4.51 [facility] Comment on above: Performed By: #### L 300.4310, L501.4021, L300.3900, L500.2500, L100.0100 #### [facility] [address] [place], [address] Absolute Neut 6.2 X10 3/uL Normal 2.0-7.7 [facility] Comment on above: Performed By: #### L 300.4310, L501.4021, L300.3900, L500.2500, L100.0100 #### [facility] [address] [place], [address] Basophils/100 WBC (Bld) 0.5 % Normal 0-1 [facility] Comment on above: Performed By: #### L 300.4310, L501.4021, L300.3900, L500.2500, L100.0100 #### [facility] [address] [place], [address] Eosinophils/100 WBC (Bld) 1.0 % Normal 0-5 [facility] Comment on above: Performed By: #### L 300.4310, L501.4021, L300.3900, L500.2500, L100.0100 #### [facility] [address] [place], [address] Erythrocyte distribution width (RBC) [Ratio] 13.3 % Normal 11.6-14.6 [facility] Comment on above: Performed By: #### L 300.4310, L501.4021, L300.3900, L500.2500, L100.0100 #### [facility] [address] [place], [address] Hematocrit (Bld) [Volume fraction] 42.0 % Normal 37-47 [facility] Comment on above: Performed By: #### L 300.4310, L501.4021, L300.3900, L500.2500, L100.0100 #### [facility] [address] [place], [address] Hemoglobin (Bld) [Mass/Vol] 13.8 g/dL Normal 12.0-15.0 [facility] Comment on above: Performed By: #### L 300.4310, L501.4021, L300.3900, L500.2500, L100.0100 #### [facility] [address] [place], [address] IG% 0.300 Normal 0.0-0.9 [facility] Comment on above: Result Comment: IG% - Immature Granulocytes (promyelocytes, myelocytes and metamyelocytes) > 1% indicates that a LEFT SHIFT is Present. Performed By: #### L 300.4310, L501.4021, L300.3900, L500.2500, L100.0100 #### [facility] [address] [place], [address] Lymphocytes/100 WBC (Bld) 17.9 % Low 19-41 [facility] Comment on above: Performed By: #### L 300.4310, L501.4021, L300.3900, L500.2500, L100.0100 #### [facility] [address] [place], [address] MCH (RBC) [Entitic mass] 30.3 pg Normal 27.0-32.0 [facility] Comment on above: Performed By: #### L 300.4310, L501.4021, L300.3900, L500.2500, L100.0100 #### [facility] [address] [place], [address] MCHC (RBC) [Mass/Vol] 32.9 g/dL Normal 32-36 [facility] Comment on above: Performed By: #### L 300.4310, L501.4021, L300.3900, L500.2500, L100.0100 #### [facility] [address] [place], [address] MCV (RBC) [Entitic vol] 92.1 fL Normal 81-99 [facility] Comment on above: Performed By: #### L 300.4310, L501.4021, L300.3900, L500.2500, L100.0100 #### [facility] [address] [place], [address] Monocytes/100 WBC (Bld) 8.9 % Normal 0-10 [facility] Comment on above: Performed By: #### L 300.4310, L501.4021, L300.3900, L500.2500, L100.0100 #### [facility] [address] [place], [address] Neutrophils/100 WBC (Bld) 71.4 % High 47-70 [facility] Comment on above: Performed By: #### L 300.4310, L501.4021, L300.3900, L500.2500, L100.0100 #### [facility] [address] [place], [address] Nucleated RBC (Bld) [#/Vol] 0 10*3/uL Normal 0-5 [facility] Comment on above: Performed By: #### L 300.4310, L501.4021, L300.3900, L500.2500, L100.0100 #### [facility] [address] [place], [address] Platelet mean volume (Bld) [Entitic vol] 10.7 fL Normal 6.2-12.0 [facility] Comment on above: Performed By: #### L 300.4310, L501.4021, L300.3900, L500.2500, L100.0100 #### [facility] [address] [place], [address] Platelets (Bld) [#/Vol] 214 10*3/uL Normal 150-450 [facility] Comment on above: Performed By: #### L 300.4310, L501.4021, L300.3900, L500.2500, L100.0100 #### [facility] [address] [place], [address] RBC (Bld) [#/Vol] 4.56 10*6/uL Normal 4.2-5.4 [facility] Comment on above: Performed By: #### L 300.4310, L501.4021, L300.3900, L500.2500, L100.0100 #### [facility] [address] [place], [address] RDW SD 45.3 fl High 35.1-43.9 [facility] Comment on above: Performed By: #### L 300.4310, L501.4021, L300.3900, L500.2500, L100.0100 #### [facility] [address] [place], [address] WBC (Bld) [#/Vol] 8.7 10*3/uL Normal 4.4-11.0 [facility] Comment on above: Performed By: #### L 300.4310, L501.4021, L300.3900, L500.2500, L100.0100 #### [facility] [address] [place], [address] CBC,PLATELETSon 08-02-2024 Erythrocyte distribution width (RBC) [Ratio] 13.3 % 10.8 - 14.9 % [facility] Hematocrit (Bld) [Volume fraction] 43.8 % 34.9 - 44.3 % [facility] Hemoglobin (Bld) [Mass/Vol] 14 g/dL 11.4 - 15.2 g/dL [facility] Interpretation and review of laboratory results Normal [facility] MCH (RBC) [Entitic mass] 29.4 pg 25.9 - 33.9 pg [facility] MCHC (RBC) [Mass/Vol] 32 g/dL 31.4 - 35.9 g/dL [facility] MCV (RBC) [Entitic vol] 92 fL 79.6 - 97.7 fL [facility] Platelet mean volume (Bld) [Entitic vol] 10.8 fL 8.5 - 12.2 fL [facility] Platelets (Bld) [#/Vol] 245 10*3/uL 150 - 393 K/uL [facility] RBC (Bld) [#/Vol] 4.76 10*6/uL [facility] WBC (Bld) [#/Vol] 8.16 10*3/uL 3.99 - 11.19 K/uL [facility] Hematocrit (Bld) [Volume fraction] 43.8 % Normal 34.9-44.3 [facility] Comment on above: Performed By: #### B LDCULT #### [facility] (DEFAULT) [address] [place] [address] Hemoglobin (Bld) [Mass/Vol] 14.0 g/dL Normal 11.4-15.2 [facility] Comment on above: Performed By: #### B LDCULT #### [facility] (DEFAULT) [address] [place] [address] MCV (RBC) [Entitic vol] 92.0 fL Normal 79.6-97.[address] [facility] Comment on above: Performed By: #### B LDCULT #### [facility] (DEFAULT) [address] [place] [address] Mean Cell Hgb 29.4 pg Normal 25.9-33.9 [facility] Comment on above: Performed By: #### B LDCULT #### [facility] (DEFAULT) [address] [place] [address] Mean Cell Hgb Conc 32.0 g/dL Normal 31.4-35.9 [facility] Comment on above: Performed By: #### B LDCULT #### [facility] (DEFAULT) [address] [place] [address] Platelet mean volume (Bld) [Entitic vol] 10.8 fL Normal 8.5-12.2 [facility] Comment on above: Performed By: #### B LDCULT #### [facility] (DEFAULT) [address] [place] [address] Platelets (Bld) [#/Vol] 245 10*3/uL Normal 150-393 [facility] Comment on above: Performed By: #### B LDCULT #### [facility] (DEFAULT) [address] [place] [address] RBC (Bld) [#/Vol] 4.76 10*6/uL Normal 3.91-5.04 [facility] Comment on above: Performed By: #### B LDCULT #### [facility] (DEFAULT) [address] [place] [address] RBC Distribution 13.3 % Normal 10.8-14.9 [facility] Comment on above: Performed By: #### B LDCULT #### [facility] (DEFAULT) [address] [place] [address] WBC (Bld) [#/Vol] 8.16 10*3/uL Normal 3.99-11.19 [facility] Comment on above: Performed By: #### B LDCULT #### [facility] (DEFAULT) [address] [place] [address] CHEM 7 (LYTES,BUN,CREA,GLUC) on 08-02-2024 Anion gap [Moles/Vol] 16 mmol/L 7 - 17 mmol/L [facility] Chloride [Moles/Vol] 105 mmol/L 98 - 10 8 mmol/L [facility] CO2 [Moles/Vol] 22 mmol/L 21 - 31 mmol/L [facility] Creatinine [Mass/Vol] 1.37 mg/dL High 0.50 - 1.20 mg/dL [facility] eGFR, CKD-EPI, Female 39 Low - PINF [facility] Glucose [Mass/Vol] 210 mg/dL High 70 - 179 mg/dL [facility] Osmolality Calc [Osmolality] 299 [facility] Potassium [Moles/Vol] 3.7 mmol/L 3.5 - 5.0 mmol/L [facility] Sodium [Moles/Vol] 139 mmol/L 135 - 145 mmol/L [facility] Urea nitrogen [Mass/Vol] 18 mg/dL 7 - 25 mg/dL [facility] Urea nitrogen/Creatinine [Mass ratio] 13 mg/mg [facility] Anion gap [Moles/Vol] 16 mmol/L Normal 7-17 [facility] Comment on above: Performed By: #### H [facility] #### [facility] (DEFAULT) [address] [place] [address] Chloride [Moles/Vol] 105 mmol/L Normal 98-108 [facility] Comment on above: Performed By: #### H [facility] #### [facility] (DEFAULT) [address] [place] [address] CO2 [Moles/Vol] 22 mmol/L Normal 21-31 [facility] Comment on above: Performed By: #### H [facility] #### [facility] (DEFAULT) [address] [place] [address] Creatinine [Mass/Vol] 1.37 mg/dL High 0.50-1.20 [facility] Comment on above: Performed By: #### H [facility] #### [facility] (DEFAULT) [address] [address] GFR/1.73 sq M.predicted among non-blacks MDRD (S/P/Bld) [Vol rate/Area] 39 mL/min/{1.73_m2} Low >=60 [facility] Comment on above: Result Comment: Repo rted eGFR is based on the CKD-EPI 2020 equation using creatinine, age, and sex. Performed By: #### H [facility] #### [facility] (DEFAULT) [address] [address] Glucose [Mass/Vol] 210 mg/dL High Nonfastin -179 mg/dL; Fastin-99 [facility] Comment on above: Performed By: #### H EMOGC #### [facility] (DEFAULT) [address] [place] [address] Osmolality [Osmolality] 299 mosm/kg Normal 278-305 [facility] Comment on above: Performed By: #### H EMOGC #### [facility] (DEFAULT) [address] [place] [address] Potassium [Moles/Vol] 3.7 mmol/L Normal 3.5-5.0 [facility] Comment on above: Performed By: #### H EMOGC #### [facility] (DEFAULT) [address] [place] [address] Sodium [Moles/Vol] 139 mmol/L Normal 135-145 [facility] Comment on above: Performed By: #### H EMOGC #### U [facility] (DEFAULT) [address] [place] [id number] Urea nitrogen [Mass/Vol] 18 mg/dL Normal 7-25 [facility] Comment on above: Performed By: #### H EMOGC #### [facility] (DEFAULT) [address] [place] [address] Urea nitrogen/Creatinine [Mass ratio] 13 mg/mg Normal [facility] Comment on above: Performed By: #### H EMOGC #### [facility] (DEFAULT) [address] [place] [address] ABDOMEN/PELVIS WITH CONTR AST VASCULAR TRAUMAon [...] grade: None. Kidney trauma grade: None. Normal [facility] CT Abdomen and Pelvis W cont rast Seth 08-02-2024 RADIOLOGY RADIOLOGY [facility] [place] [facility] CT Abdomen and Pelvis W cont rast IVOrdered By: Edson Head on 08-02-2024 [facility] [place] Work Phone: CT Cervical spine WO contras ton 08-02-2024 Radiology Study observation (narrative) [facility] CT Orbit WO contraston 08-02 Radiology Study observation (narrative) [facility] Carbon dioxide, total [Moles /volume] in Central venous bloodOrdered By: Pieter Morgan on 08-02-2024 CO2 [Moles/Vol] 22.0 mmol/L 21.0-32.0 [facility] Chloride assayOrdered By: Racheal Morgan on 08-02-2024 Chloride [Moles/Vol] 98 mmol/L 98-108 [facility] Emergency Department Summary on 08-02-2024 Emergency Department Summary [facility] Medical Records Department [address] [place] [address] Emergency Department Summary 08/02/24 MR#: [id number] Acct: [id number] Name: LINDSAY ACUNA Rep #: [id number] : 1945 78 From: Pieter Morgan MD [...] the EMR. states they returned home from [facility] about 1.5-2 weeks ago, and they both had colds. He is better, but she is "on round 2." [facility] Medical History Paroxysmal atrial fibrillation with [...] normal respir (more content not included)... Normal [facility] Eosinophil percentageOrdered By: Pieter Morgan on 08-02-2024 Eosinophils/100 WBC (Bld) 1.0 % 0-5 [facility] Erythrocyte distribution wid th ratioOrdered By: Pieter Morgan on 08-02-2024 Erythrocyte distribution width (RBC) [Ratio] 13.3 % 11.6-14.6 [facility] Erythrocyte distribution wid th standard deviationOrdered By: Pieter Morgan on 08-02-2024 Erythrocyte distribution width (RBC) [Entitic vol] 45.3 fL High 35.1-43.9 [facility] Erythrocyte distribution width (RBC) [Ratio] 45.3 fl High 35.1-43.9 [facility] Estimation of creatinine mackenzie aranceOrdered By: Pieter Morgan on 08-02-2024 Estimated Creatinine Clearance Calc 27.14 ml/min Low 50-250 [facility] GFR/1.73 sq M.predicted lana g non-blacks MDRD (S/P/Bld) [Vol rate/Area]Ordered By: Pieter Morgan on 08-02-2024 Estimated GFR (MDRD) Non-Af Amer 29 Low >60 [facility] Comment on above: mL/min/1.73m2 CKD-EP I Creatinine Equation (2020) Glomerular filtration rate ( GFR) estimation/1.73 sq m using serum, plasma, or whole bOrdered By: Pieter Morgan on 08-02-2024 GFR/1.73 sq M.predicted among non-blacks MDRD (S/P/Bld) [Vol rate/Area] 29 mL/min/{1.73_m2} Low >60 [facility] Comment on above: mL/min/1.73m2 CKD-EP I Creatinine Equation (2020) HEMOGLOBIN A1Con 08-02-2024 Average glucose Estimated from glycated hemoglobin (Bld) [Mass/Vol] 177 mg/dL [facility] HbA1c (Bld) [Mass fraction] 7.8 % High 4.7 - 5.6 % [facility] Interpretation and review of laboratory results Abnormal [facility] Glucose [Mass/Vol] 177 mg/dL Normal [facility] Comment on above: Performed By: #### H [facility] #### [facility] (DEFAULT) [address] [place] [address] Hemoglobin A1C HPLC 7.8 % High 4.7-5.6 [facility] Comment on above: Performed By: #### H [facility] #### [facility] (DEFAULT) [address] [place] [address] HEPATIC FUNCTION PANELon Albumin [Mass/Vol] 3.5 g/dL 3.5 - 5.0 g/dL [facility] ALP [Catalytic activity/Vol] 117 U/L 32 - 126 U/L [facility] ALT [Catalytic activity/Vol] 10 U/L 9 - 48 U/L [facility] AST [Catalytic activity/Vol] 17 U/L 10 - 39 U/L [facility] Bilirubin [Mass/Vol] 0.6 mg/dL NINF - 1.5 mg/dL [facility] Bilirubin.direct [Mass/Vol] 0.1 mg/dL NINF - 0.3 mg/dL [facility] Protein [Mass/Vol] 6.3 g/dL Low 6.4 - 8.3 g/dL [facility] Albumin [Mass/Vol] 3.5 g/dL Normal 3.5-5.0 [facility] Comment on above: Performed By: #### H EMOGC #### [facility] (DEFAULT) [address] [place] [address] ALP [Catalytic activity/Vol] 117 U/L Normal 32-126 [facility] Comment on above: Performed By: #### H EMOGC #### [facility] (DEFAULT) [address] [place] [address] ALT [Catalytic activity/Vol] 10 U/L Normal 9-48 [facility] Comment on above: Performed By: #### H EMOGC #### [facility] (DEFAULT) [address] [place] [address] AST [Catalytic activity/Vol] 17 U/L Normal 10-39 [facility] Comment on above: Performed By: #### H EMOGC #### [facility] (DEFAULT) [address] [place] [address] Bilirubin [Mass/Vol] 0.6 mg/dL Normal <1.5 [facility] Comment on above: Performed By: #### H EMOGC #### [facility] (DEFAULT) [address] [place] [address] Bilirubin.indirect [Mass/Vol] 0.1 mg/dL Normal <0.3 [facility] Comment on above: Performed By: #### H EMOGC #### [facility] (DEFAULT) [address] [place] [address] Protein [Mass/Vol] 6.3 g/dL Low 6.4-8.3 [facility] Comment on above: Performed By: #### H EMOGC #### [facility] (DEFAULT) [address] [place] [address] HIGH SENSITIVITY TROPONIN I - SINGLE ORDERon 08-02-2024 Interpretation and review of laboratory results Normal [facility] Troponin I.cardiac High sensitivity method [Mass/Vol] 9 ng/L NINF - 34 ng/L [facility] hs-Troponin I 9 ng/L Normal <34 [facility] Comment on above: Order [...] #### B LDCULT #### [facility] [place] [facility] (DEFAULT) [address] [place] [address] Hematocrit Auto (Bld) [Volum e fraction]Ordered By: [facility] on 08-02-2024 Hematocrit (Bld) [Volume fraction] 42.0 % 37-47 [facility] Hemoglobin measurementOrdere d By: Pieterdanielle Morgan on 08-02-2024 Hemoglobin (Bld) [Mass/Vol] 13.8 g/dL 12.0-15.0 [facility] Immature granulocytes/100 WB C Auto (Bld)Ordered By: Dunlap Cathy on 08-02-2024 Immature granulocytes/100 WBC (Bld) 0.300 % 0.0-0.9 [facility] Comment on above: IG% - Immature Granu locytes (promyelocytes, myelocytes and metamyelocytes) > 1% indicates that a LEFT SHIFT is Present. Influenza virus A and B and SARS-CoV-2 (COVID-19) and Respiratory syncytial virus RNAOrdered By: Pieterdanielle Morgan on 08-02-2024 SARS-CoV-2 (COVID-19) RNA CHUCKY+probe Ql (Unsp spec) [facility] International normalized rat io (INR) calculationOrdered By: [facility] on 08-02-2024 INR Coag (Bld) [Relative time] 1.1 {INR} [facility] L499.0042on 08-02-2024 Trop T High Sen Normal <=14 [facility] Comment on above: Result Comment: Canc elled via OM: Order cancelled - Patient discharged Performed By: #### L 499.0042 ####[facility] [address] [place], [place], [id number] L499.0043on 08-02-2024 Trop T High Sen Normal <=14 [facility] Comment on above: Result Comment: Canc elled via OM: Order cancelled - Patient discharged Performed By: #### L 499.0043 ####[facility] [id number] [place], [address] L501.4021on 08-02-2024 Trop T High Sen 38 ng/L High <=14 [facility] Comment on above: Performed By: #### L 300.4310, L501.4021, L300.3900, L500.2500, L100.0100 ####[facility] [address] [place], [place], [id number] LIPID PANEL WITH REFLEX TO M EASURED LDLon 08-02-2024 Cholesterol [Mass/Vol] 141 mg/dL NINF - 200 mg/dL [facility]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 ####[facility] LABIA [id number] [place] [address] [place] Creatinine and Glomerular filtration rate.predicted panel (S/P/Bld) 42 mL/min/1.73m??? Low >=60 [facility] Comment on above: Order Comment: Speci men Type: BLOOD SPECIMENOrdering Facility: [facility] Address: [address] [place] [address] Result Comment: Nancy mated Glomerular Filtration Rate [...] actual GFR. Performed By: #### 2 4331-1, 85166-1, 3015-3 ####[facility] LABIA [id number] [address] [address] [place] Glucose [Mass/Vol] 105 mg/dL High 74-99 [facility] Comment on above: Order Comment: Speci men Type: BLOOD SPECIMENOrdering Facility: [facility] Address: [address] [place] [address] Result Comment: The [place] Diabetes Association (ADA) provides guidance for cutoff [...] Standards of Medical Care in Diabetes 2016, [place] Diabetes Association. Diabetes Care. 2016.39(Suppl 1). Performed By: #### 2 4331-1, 32813-1, 3015-3 ####[facility] LABCLIA [id number] [place] [address] [place] Potassium [Moles/Vol] 4.7 mmol/L Normal 3.7-5.1 [facility] Comment on above: Order Comment: Speci men Type: BLOOD SPECIMENOrdering Facility: [facility] Address: [address] [place] [address] Performed By: #### 2 4331-1, 58928-3, 3015-3 ####[facility] LABCLIA [id number] [place] [id number] [place] Protein [Mass/Vol] 7.1 g/dL Normal 6.3-8.0 [facility] Comment on above: Order Comment: Speci men Type: BLOOD SPECIMENOrdering Facility: [facility] Address: [address] [place] [address] Performed By: #### 2 4331-1, 02180-4, 3015-3 ####[facility] LABCLIA [id number] [place] [address] [place] Sodium [Moles/Vol] 141 mmol/L Normal 136-144 [facility] Comment on above: Order Comment: Speci men Type: BLOOD SPECIMENOrdering Facility: [facility] Address: [address] [place] [address] Performed By: #### 2 4331-1, 25741-8, 3016-3 ####[facility] LABIA [id number] [place] [address] [place] Urea nitrogen [Mass/Vol] 18 mg/dL Normal 7-21 [facility] Comment on above: Order Comment: Nici men Type: BLOOD SPECIMENOrdering Facility: [facility] Address: [address] [place] [address] Performed By: #### 2 4331-1, 64642-7, 3016-3 ####[facility] [id number] [place] [address] [place] HbA1c (Bld)on 05-23-2024 Average glucose Estimated from glycated hemoglobin (Bld) [Mass/Vol] 154 mg/dL Normal [facility] Comment on above: Order Comment: Nici men Type: BLOOD SPECIMENOrdering Facility: [facility] Address: [address] [place] [address] Result Comment: eAG: (Estimated average glucose) is a calculated value from HgbA1c and is field support representative of the average blood glucose level in the last 2-3 month period. Performed By: #### 5 5454-3 ####[facility] [id number] [place] [address] [place] HbA1c (Bld) [Mass fraction] 7.0 % High 4.3-5.6 [facility] Comment on above: Order Comment: Nici men Type: BLOOD SPECIMENOrdering Facility: [facility] Address: [address] [place] [address] Result Comment: Amer [place] Diabetes Association guidelines indicate that patients with HgbA1c in the range 5.7-6.4% are at increased risk for development of diabetes, and intervention by lifestyle modification may be beneficial. HgbA1c greater or equal to 6.5% is considered diagnostic of diabetes. Performed By: #### 5 5454-3 ####[facility] LABCLIA [id number] [place] [address] [place] Lipid 1996 panelon 5 Cholesterol [Mass/Vol] 193 mg/dL Normal <200 [facility] Comment on above: Order Comment: Speci men Type: BLOOD SPECIMENOrdering Facility: [facility] Address: [address] [place] [address] Result Comment: <200 mg/dL, Desirable 200-239 mg/dL, Borderline high >239 mg/dL, High Performed By: #### 2 4331-1, 40874-0, 6-3 ####[facility] LABCLIA [id number] [address] [place] [facility] Cholesterol in HDL [Mass/Vol] 44 mg/dL Normal >39 [facility] Comment on above: Order Comment: Deana borjas Type: BLOOD SPECIMENOrdering Facility: [facility] Address: [address] [place] [address] Result Comment: 40-5 9 mg/dL, Acceptable >59 mg/dL, High: Negative risk factor for coronary heart disease <40 mg/dL, Low: Positive risk factor for coronary heart disease Performed By: #### 2 4331-1, 03966-0, 6-3 ####[facility] LABCLIA [id number] [place] [id number] [place] Cholesterol in LDL [Mass/Vol] 123 mg/dL High <100 [facility] Comment on above: Order Comment: Deana men Type: BLOOD SPECIMENOrdering Facility: [facility] Address: [address] [place] [address] Result Comment: <100 mg/dL, Optimal 100-129 mg/dL, Near optimal/above optimal 130-159 mg/dL, Borderline high 160-189 mg/dL, High >189 mg/dL, Very high Secondary prevention optimal LDL Cholesterol levels are recommended to be < 70 mg/dL Performed By: #### 2 4331-1, 72614-9, 6-3 ####[facility] LABCLIA [id number] [address] [address] [place] Cholesterol in LDL/Cholesterol in HDL [Mass ratio] 2.80 {ratio} High <2.54 [facility] Comment on above: Order Comment: Speci men Type: BLOOD SPECIMENOrdering Facility: [facility] Address: [address] [place] [address] Result Comment: Refe maría: 1. National Cholesterol Education Program ATP III Guideline At-A-Glance Quick Desk Reference: National Heart, Lung, and Blood [place]. National Institutes of Health. 2001: NIH Publication No. 01-3305. 2. An International Atherosclerosis Society position paper: global recommendations for the management of dyslipidemia: executive summary, Atherosclerosis. 2014: 232(2):410-413. Performed By: #### 2 4331-1, 50026-9, 6-3 ####[facility] LABCLIA [id number] [place] [id number] [place] Cholesterol in VLDL [Mass/Vol] 26 mg/dL Normal <30 [facility] Comment on above: Order Comment: Speci men Type: BLOOD SPECIMENOrdering Facility: [facility] Address: [address] [place] [address] Performed By: #### 2 4331-1, 05988-3, 6-3 ####[facility] LABCLIA [id number] [address] [address] [place] Cholesterol non HDL [Mass/Vol] 149 mg/dL High <130 [facility] Comment on above: Order Comment: Speci men Type: BLOOD SPECIMENOrdering Facility: [facility] Address: [address] [place] [address] Result Comment: <130 mg/dL, Optimal 130-159 mg/dL, Near optimal/above optimal 160-189 mg/dL, Borderline high 190-219 mg/dL, High >219 mg/dL, Very high Secondary prevention optimal non HDL Cholesterol levels are recommended to be <100 mg/dL Performed By: #### 2 4331-1, , 3015-07 ####[facility] LABCLIA [id number] [address] [address] [place] Cholesterol.total/Alta sterol in HDL [Mass ratio] 4.39 {ratio} Normal <5.10 [facility] Comment on above: Order Comment: Speci men Type: BLOOD SPECIMENOrdering Facility: [facility] Address: [address] [place] [address] Performed By: #### 2 4331-1, , 3015-07 ####[facility] LABCLIA [id number] [address] [place] FASTING TIME 12 hrs Normal [facility] Comment on above: Order Comment: Speci men Type: BLOOD SPECIMENOrdering Facility: [facility] Address: [address] [place] [address] Performed By: #### 2 4331-1, , 3015-07 ####[facility] LABCLIA [id number] [place] [id number] [place] Triglyceride [Mass/Vol] 129 mg/dL Normal <150 [facility] Comment on above: Order Comment: Speci men Type: BLOOD SPECIMENOrdering Facility: [facility] Address: [address] [place] [address] Result Comment: <150 mg/dL, Normal 150-199 mg/dL, Borderline high 200-499 mg/dL, High >499 mg/dL, Very high Performed By: #### 2 4331-1, , 3015-07 ####[facility] LABCLIA [id number] [address] [address] [place] TSH SerPl-aCncon 05-23-2024 TSH Qn 0.183 m[IU]/L Low 0.270-4.200 [facility] Comment on above: Order Comment: Speci men Type: BLOOD SPECIMENOrdering Facility: [facility] Address: [address] [place] [address] Performed By: #### 2 4331-1, 00460-6, 3016-3 ####[facility] LABCLIA [id number] MILY RODRIGUEZDESK [id number] OF [facility] CNOVon 11-28-2023 CNOV Office Visit (FAMPWS ) LINDSAY ACUNA ([id number]) 1945 F Date Time Provider Department 11/28/23 9:40 AM [facility] During your visit today, we recorded [...] due for colonoscopy; will contact GI in [place] Lipid: Does not watch diet or exercise. [...] (more content not included)... Normal [facility] Comprehensive metabolic 2000 panelon 11-27-2023 Albumin [Mass/Vol] 4.1 g/dL Normal 3.9-4.9 [facility] Comment on above: Order Comment: Speci men Type: BLOOD SPECIMENOrdering Facility: [facility] Address: [address] [place] [address] Performed By: #### 3 016-3, 55145-0, 22329-7 ####[facility] LABCLIA [id number] [address] [address] [place] ALP [Catalytic activity/Vol] 86 U/L Normal 34-123 [facility] Comment on above: Order Comment: Speci men Type: BLOOD SPECIMENOrdering Facility: [facility] Address: [address] [place] [address] Performed By: #### 3 016-3, 65101-1, 50538-6 ####[facility] LABCLIA [id number] [address] [address] [place] ALT [Catalytic activity/Vol] 13 U/L Normal 7-38 [facility] Comment on above: Order Comment: Speci men Type: BLOOD SPECIMENOrdering Facility: [facility] Address: [address] [place] [address] Performed By: #### 3 016-3, 38420-6, 49594-3 ####[facility] LABCLIA [id number] [place] [address] [place] Anion gap [Moles/Vol] 10 mmol/L Normal 8-15 [facility] Comment on above: Order Comment: Speci men Type: BLOOD SPECIMENOrdering Facility: [facility] Address: [address] [place] [address] Performed By: #### 3 016-3, 81874-9, 40602-0 ####[facility] LABCLIA [id number] [place] [address] [place] AST [Catalytic activity/Vol] 21 U/L Normal 13-35 [facility] Comment on above: Order Comment: Speci men Type: BLOOD SPECIMENOrdering Facility: [facility] Address: [address] [place] [address] Performed By: #### 3 016-3, 46498-9, 07654-6 ####[facility] LABCLIA [id number] [place] [address] [place] Bilirubin [Mass/Vol] 0.5 mg/dL Normal 0.2-1.3 [facility] Comment on above: Order Comment: Speci men Type: BLOOD SPECIMENOrdering Facility: [facility] Address: [address] [place] [address] Performed By: #### 3 016-3, 03487-3, 19293-5 ####[facility] LABCLIA [id number] [id number], [place] [address] [place] Calcium [Mass/Vol] 9.7 mg/dL Normal 8.5-10.2 [facility] Comment on above: Order Comment: Speci men Type: BLOOD SPECIMENOrdering Facility: [facility] Address: [address] [place] [address] Performed By: #### 3 016-3, 80117-9, 57218-5 ####[facility] LABCLIA [id number] [place] [address] [place] Chloride [Moles/Vol] 108 mmol/L High 98-107 [facility] Comment on above: Order Comment: Speci men Type: BLOOD SPECIMENOrdering Facility: [facility] Address: [address] [place] [address] Performed By: #### 3 016-3, 15630-7, 65014-0 ####[facility] LABCLIA [id number] [place] [address] [place] CO2 [Moles/Vol] 23 mmol/L Normal 22-30 [facility] Comment on above: Order Comment: Speci men Type: BLOOD SPECIMENOrdering Facility: [facility] Address: [address] [place] [address] Performed By: #### 3 016-3, 94808-5, 57161-5 ####[facility] LABCLIA [id number] [place] [address] [place] Creatinine [Mass/Vol] 1.37 mg/dL High 0.58-0.96 [facility] Comment on above: Order Comment: Speci men Type: BLOOD SPECIMENOrdering Facility: [facility] Address: [address] [place] [address] Performed By: #### 3 016-3, 96118-9, 42464-3 ####[facility] LABCLIA [id number] [facility] [place] [address] [place] Creatinine and Glomerular filtration rate.predicted panel (S/P/Bld) 39 mL/min/1.73m??? Low >=60 [facility] Comment on above: Order Comment: Deana borjas Type: BLOOD SPECIMENOrdering Facility: [facility] Address: [address] [place] [address] Result Comment: Nancy mated Glomerular Filtration Rate [...] actual GFR. Performed By: #### 3 016-3, 05831-0, 33704-1 ####[facility] [id number] [place] [address] [place] Glucose [Mass/Vol] 77 mg/dL Normal 74-99 [facility] Comment on above: Order Comment: Deana borjas Type: BLOOD SPECIMENOrdering Facility: [facility] Address: [address] [place] [address] Result Comment: The [place] Diabetes Association (ADA) provides guidance for cutoff [...] Standards of Medical Care in Diabetes 2016, [place] Diabetes Association. Diabetes Care. 2016.39(Suppl 1). Performed By: #### 3 016-3, 49672-4, 97568-2 ####[facility] [id number] [place] [address] [place] Potassium [Moles/Vol] 4.4 mmol/L Normal 3.7-5.1 [facility] Comment on above: Order Comment: Speci men Type: BLOOD SPECIMENOrdering Facility: [facility] Address: [address] [place] [address] Performed By: #### 3 016-3, 41164-0, 79067-1 ####[facility] LABCLIA [id number] [place] [address] [place] Protein [Mass/Vol] 6.6 g/dL Normal 6.3-8.0 [facility] Comment on above: Order Comment: Speci men Type: BLOOD SPECIMENOrdering Facility: [facility] Address: [address] [place] [address] Performed By: #### 3 016-3, 50737-6, 42427-3 ####[facility] LABCLIA [id number] [place] [address] [place] Sodium [Moles/Vol] 141 mmol/L Normal 136-144 [facility] Comment on above: Order Comment: Speci men Type: BLOOD SPECIMENOrdering Facility: [facility] Address: [address] [place] [address] Performed By: #### 3 016-3, 63765-6, ####[facility] LABCLIA [id number] [place] [address] [place] Urea nitrogen [Mass/Vol] 21 mg/dL Normal 7-21 [facility] Comment on above: Order Comment: Speci men Type: BLOOD SPECIMENOrdering Facility: [facility] Address: [address] [place] [address] Performed By: #### 3 016-3, 53026-3, 39227-1 ####[facility] LABCLIA [id number] [place] [id number] [place] HbA1c (Bld)on 11-27-2023 Average glucose Estimated from glycated hemoglobin (Bld) [Mass/Vol] 166 mg/dL Normal [facility] Comment on above: Order Comment: Speci men Type: BLOOD SPECIMENOrdering Facility: [facility] Address: [address] [place] [address] Result Comment: eAG: (Estimated average glucose) is a calculated value from HgbA1c and is field support representative of the average blood glucose level in the last 2-3 month period. Performed By: #### 5 5454-3 ####[facility] LABCLIA [id number] [place] [address] [place] HbA1c (Bld) [Mass fraction] 7.4 % High 4.3-5.6 [facility] Comment on above: Order Comment: Speci men Type: BLOOD SPECIMENOrdering Facility: [facility] Address: [address] [place] [address] Result Comment: Amer [place] Diabetes Association guidelines indicate that patients with HgbA1c in the range 5.7-6.4% are at increased risk for development of diabetes, and intervention by lifestyle modification may be beneficial. HgbA1c greater or equal to 6.5% is considered diagnostic of diabetes. Performed By: #### 5 5454-3 ####[facility] LABCLIA [id number] [place] [address] [place] Lipid 1996 panelon 4 Cholesterol [Mass/Vol] 156 mg/dL Normal <200 [facility] Comment on above: Order Comment: Speci men Type: BLOOD SPECIMENOrdering Facility: [facility] Address: [address] [place] [address] Result Comment: <200 mg/dL, Desirable 200-239 mg/dL, Borderline high >239 mg/dL, High Performed By: #### 3 016-3, 09071-3, 26465-8 ####[facility] LABIA [id number] [place] [address] [place] Cholesterol in HDL [Mass/Vol] 41 mg/dL Normal >39 [facility] Comment on above: Order Comment: Speci men Type: BLOOD SPECIMENOrdering Facility: [facility] Address: [address] [place] [address] Result Comment: 40-5 9 mg/dL, Acceptable >59 mg/dL, High: Negative risk factor for coronary heart disease <40 mg/dL, Low: Positive risk factor for coronary heart disease Performed By: #### 3 016-3, 82001-8, 20094-7 ####[facility] LABCLIA [id number] [place] [address] [place] Cholesterol in LDL [Mass/Vol] 85 mg/dL Normal <100 [facility] Comment on above: Order Comment: Speci men Type: BLOOD SPECIMENOrdering Facility: [facility] Address: [address] [place] [address] Result Comment: <100 mg/dL, Optimal 100-129 mg/dL, Near optimal/above optimal 130-159 mg/dL, Borderline high 160-189 mg/dL, High >189 mg/dL, Very high Secondary prevention optimal LDL Cholesterol levels are recommended to be < 70 mg/dL Performed By: #### 3 016-3, , ####[facility] LABCLIA [id number] [place] [address] [place] Cholesterol in LDL/Cholesterol in HDL [Mass ratio] 2.07 {ratio} Normal <2.54 [facility] Comment on above: Order Comment: Speci men Type: BLOOD SPECIMENOrdering Facility: [facility] Address: [address] [place] [address] Result Comment: Refmelanie daniel: 1. National Cholesterol Education Program ATP III Guideline At-A-Glance Quick Desk Reference: National Heart, Lung, and Blood [place]. National Institutes of Health. 2001: NIH Publication No. 01-3305. 2. An International Atherosclerosis Society position paper: global recommendations for the management of dyslipidemia: executive summary, Atherosclerosis. 2014: 232(2):410-413. Performed By: #### 3 016-3, 10039-5, ####[facility] LABCLIA [id number] [place] [address] [place] Cholesterol in VLDL [Mass/Vol] 30 mg/dL High <30 [facility] Comment on above: Order Comment: Speci men Type: BLOOD SPECIMENOrdering Facility: [facility] Address: [address] [place] [address] Performed By: #### 3 016-3, , ####[facility] LABCLIA [id number] [address] [address] [place] Cholesterol non HDL [Mass/Vol] 115 mg/dL Normal <130 [facility] Comment on above: Order Comment: Speci men Type: BLOOD SPECIMENOrdering Facility: [facility] Address: [facility] [place] [address] Result Comment: <130 mg/dL, Optimal 130-159 mg/dL, Near optimal/above optimal 160-189 mg/dL, Borderline high 190-219 mg/dL, High >219 mg/dL, Very high Secondary prevention optimal non HDL Cholesterol levels are recommended to be <100 mg/dL Performed By: #### 3 016-3, , ####[facility] LABCLIA [id number] [place] [address] [place] Cholesterol.total/Alta sterol in HDL [Mass ratio] 3.80 {ratio} Normal <5.10 [facility] Comment on above: Order Comment: Speci men Type: BLOOD SPECIMENOrdering Facility: [facility] Address: [address] [place] [address] Performed By: #### 3 016-3, , ####[facility] LABCLIA [id number] [place] [id number] [place] FASTING TIME 12 hrs Normal [facility] Comment on above: Order Comment: Speci men Type: BLOOD SPECIMENOrdering Facility: [facility] Address: [address] [place] [address] Performed By: #### 3 016-3, , 54878-4 ####[facility] LABCLIA [id number] [place] [id number] [place] Triglyceride [Mass/Vol] 148 mg/dL Normal <150 [facility] Comment on above: Order Comment: Speci men Type: BLOOD SPECIMENOrdering Facility: [facility] Address: [address] [place] [address] Result Comment: <150 mg/dL, Normal 150-199 mg/dL, Borderline high 200-499 mg/dL, High >499 mg/dL, Very high Performed By: #### 3 016-3, 48593-3, 57451-4 ####[facility] LABCLIA [id number] [place] [address] [place] TSH SerPl-aCncon 11-27-2023 TSH Qn 1.870 m[IU]/L Normal 0.270-4.200 [facility] Comment on above: Order Comment: Speci men Type: BLOOD SPECIMENOrdering Facility: [facility] Address: [address] [place] [address] Performed By: #### 3 016-3, 35906-1, 69238-0 ####[facility] LABCLIA [id number] [address] [place] CNOVon 10-10-2023 [facility] LINDSAY ACUNA ([id number]) 1945 F Date Time Provider Department 10/10/23 7:30 AM DAVID DUPREE [facility] During your visit today, we recorded the following information about you: Temperature Pulse Respiration Blood pressure 97.5 degrees 58/minute 18/minute 128/82 Weight 82.1 kg David Dupree APRN.COMPUTER SUPPORT ANALYST 10/10/2023 8:11 AM Signed Subjective HPI Nontoxic-appearing [...] mouth daily before breakfast. blood sugar diagnostic ([facility] ULTRA TEST) test strip Test Blood Sugar [...] (more content not included)... Normal [facility] CNOVon 09-29-2023 CNOV Office Visit ([facility] ) LINDSAY ACUNA ([id number]) 1945 F Date Time Provider Department 09/29/23 2:15 PM RADHA LEVINE [facility] During your visit today, we recorded the following information about you: Temperature Pulse Respiration Blood pressure 97.8 degrees 54/minute 18/minute 148/91 Weight 84 kg Radha Levine, JASIEL.COMPUTER SUPPORT ANALYST 09/29/2023 6:12 PM Signed This note was created using [employer] Entertainment[employer]. Subjective Lindsay Acuna is a 77 year old female. 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 Denies fever or chills Denies malaise or fatigue Denies new lotions, soaps, or medicines States that she was working out in the garden the same day the rash erupted. The history is provided by the patient. No english as a second language instructor was used. Rash This is a new [...] 1 tablet by mouth once daily. lancets ([employer] CorporationTOUCH DELICA PLUS LANCET) 30 gauge Test blood [...] (more content not included)... Normal [facility] Glucose,Bedsideon 04-16-2019 Glucose [Mass/Vol] 161 mg/dL High 70-100 [facility] Comment on above: Result Comment: Test performed by glucose meter. Results may be 10%-15% lower than serum/plasma values. (CLIA ID [id number]) Performed By: #### B GLU #### [facility] [employer] [address] [address] Surgical Pathologyon 019 Surgical Pathology [id number] [facility] PATHOLOGY AND LABORATORY MEDICINE [address] [place] [address] [phone] FINAL SURGICAL PATHOLOGY REPORT ___ NAME: LINDSAY ACUNA : 1945 73 Y F BILLING NO.: [id number] LOCATION: 1XEO PROCEDURE 01/09/2019 DATE: SURGEON: SANTIAGO [...] characteristics determined by the clinical laboratories of [facility] [employer] [facility]. They have not been cleared by [...] negativity on decalcified specimens. Professional Performing Location: [address] [address]. DEPARTMENT OF PATHOLOGY AND LABORATORY MEDICINE [place], [place] [address] Normal [facility] .Auto Diffon 08-22-2018 Ammonia mass conc (P) 1.10 10 3/mcL High 0.15-1.00 [facility] ([place]) Comment on above: Performed By: #### B MP, GFR #### [address] [address] Basophils #/vol (Bld) 0.00 10 3/mcL Normal 0.00-0.19 [facility] ([place]) Comment on above: Performed By: #### Roby MP, GFR #### [address] [address] Basophils/100 WBC (Bld) 0.3 % Normal 0.0-2.5 A [facility] ([place]) Comment on above: Performed By: #### B MP, GFR #### [address] [address] Eosinophils #/vol (Bld) 0.00 10 3/mcL Normal 0.00-0.40 [facility] ([place]) Comment on above: Performed By: #### B MP, GFR #### [address] [address] Eosinophils/100 WBC (Bld) 0.2 % Normal 0.0-7.0 [facility] ([place]) Comment on above: Performed By: #### B MP, GFR #### [address] [address] Lymphocytes #/vol (Bld) 2.20 10 3/mcL Normal 0.77-3.85 [facility] ([place]) Comment on above: Performed By: #### B MP, GFR #### [address] [address] Lymphocytes/100 WBC (Bld) 20.5 % Normal 10.0-50.0 [facility] ([place]) Comment on above: Performed By: #### B MP, GFR #### [address] [address] Monocytes/100 WBC (Bld) 10.5 % Normal 1.7-13.0 A [facility] ([place]) Comment on above: Performed By: #### B MP, GFR #### [address] [address] Neutrophils/100 WBC (Bld) 68.5 % Normal 37.0-80.0 [facility] ([place]) Comment on above: Performed By: #### B MP, GFR #### [address] [address] .GFRon 08-22-2018 GFR Non- 33 ml/min/1.73sqm Normal [facility] ([place]) Comment on above: Result [...] Performed By: #### B MP, GFR #### [address] [address] #### CBC, ADIFF, ANEU #### [address] [address] GFR 40 ml/min/1.73sqm Normal [facility] ([place]) Comment on above: Result [...] Performed By: #### B MP, GFR #### [place] [address] #### CBC, ADIFF, ANEU #### [address] [address] .NEUABSon 08-22-2018 Neutrophils #/vol (Bld) 7.40 10 3/mcL High 2.85-6.16 [facility] ([place]) Comment on above: Performed By: #### B MP, GFR #### [place] [address] BMPon 08-22-2018 Calcium mass conc 8.3 mg/dL Low 8.4-10.2 [facility] ([place]) Comment on above: Performed By: #### B MP, GFR #### [place] [address] #### CBC, ADIFF, ANEU #### [address] [address] Chloride molar conc 104 mmol/L Normal 98-107 [facility] ([place]) Comment on above: Performed By: #### B MP, GFR #### [place] [address] #### CBC, ADIFF, ANEU #### [address] [address] CO2 molar conc 25 mmol/L Normal 23-31 [facility] ([place]) Comment on above: Performed By: #### B MP, GFR #### [place] [address] #### CBC, ADIFF, ANEU #### [address] [address] Creatinine mass conc 1.53 mg/dL High 0.55-1.02 [facility] ([place]) Comment on above: Performed By: #### B MP, GFR #### [place] [address] #### CBC, ADIFF, ANEU #### [address] [address] Electrolyte Balance 10.0 mEq/L Normal [facility] ([place]) Comment on above: Performed By: #### B MP, GFR #### [place] [address] #### CBC, ADIFF, ANEU #### [address] [address] Glucose mass conc 149 mg/dL High 83-110 [facility] ([place]) Comment on above: Performed By: #### B MP, GFR #### [place] [address] #### CBC, ADIFF, ANEU #### [address] [address] Potassium molar conc 4.3 mmol/L Normal 3.5-5.1 [facility] ([place]) Comment on above: Performed By: #### B MP, GFR #### [place] [address] #### CBC, ADIFF, ANEU #### [address] [address] Sodium molar conc 139 mmol/L Normal 136-145 [facility] ([place]) Comment on above: Performed By: #### B MP, GFR #### [place] [address] #### CBC, ADIFF, ANEU #### [address] [address] Urea nitrogen mass conc 32 mg/dL High 7-18 A [facility] ([place]) Comment on above: Performed By: #### B MP, GFR #### [place] [address] #### CBC, ADIFF, ANEU #### [address] [address] Urea nitrogen/Creatinine mass ratio 21 ratio Normal 7-27 [facility] ([place]) Comment on above: Performed By: #### B MP, GFR #### [address] [address] #### CBC, ADIFF, ANEU #### [address] [address] CBCon 08-22-2018 Erythrocyte distribution width Ratio (RBC) 12.6 % Normal 11.5-14.5 [facility] ([place]) Comment on above: Performed By: #### B MP, GFR #### [place] [address] Hematocrit Volume Fraction (Bld) 27.5 % Low 37.0-47.0 [facility] ([place]) Comment on above: Performed By: #### B MP, GFR #### [place] [address] Hemoglobin mass conc (Bld) 9.2 G/dL Low 12.0-16.0 [facility] ([place]) Comment on above: Performed By: #### B MP, GFR #### [place] [address] MCH Entitic mass (RBC) 30.1 pg Normal 27.0-31.2 [facility] ([place]) Comment on above: Performed By: #### B MP, GFR #### [place] [address] MCHC mass conc (RBC) 33.5 G/dL Normal 33.0-37.0 [facility] ([place]) Comment on above: Performed By: #### B MP, GFR #### [address] [address] MCV Entitic volume (RBC) 89.8 fL Normal 80.0-94.0 [facility] ([place]) Comment on above: Performed By: #### B MP, GFR #### [address] [address] Platelet mean volume Entitic volume (Bld) 9.3 fL Normal 7.4-10.4 [facility] ([place]) Comment on above: Performed By: #### B MP, GFR #### [facility] [address] [place] [address] Platelets #/vol (Bld) 224 10 3/mcL Normal 130-400 A [facility] ([place]) Comment on above: Performed By: #### B MP, GFR #### [facility] [address] [place] [address] RBC #/vol (Bld) 3.06 10 6/mcL Low 4.20-5.40 [facility] ([place]) Comment on above: Performed By: #### B MP, GFR #### [facility] [address] [place] [address] WBC #/vol (Bld) 10.80 10 3/mcL Normal 4.60-10.80 [facility] ([place]) Comment on above: Performed By: #### B MP, GFR #### [place] [address] XR KNEE 1 OR 2 VIEWS RIGHTon [...] Date: 08/21/2018 9:55:37 AM Normal [facility] ([place]) CT KNEE W/O CONTRAST RIGHTon 08-09-2018 CT [...] Date: 08/09/2018 5:04:12 PM Normal [facility] ([place]) .Auto Diffon 08-06-2018 Ammonia mass conc (P) 0.80 10 3/mcL Normal 0.15-1.00 [facility] ([place]) Comment on above: Performed By: #### C DORY SMITH ANEU #### [place] [address] #### A1C #### [place] [address] Basophils #/vol (Bld) 0.10 10 3/mcL Normal 0.00-0.19 [facility] ([place]) Comment on above: Performed By: #### DORY SOTO ANEU #### [place] [address] #### A1C #### [place] [address] Basophils/100 WBC (Bld) 0.6 % Normal 0.0-2.5 A [facility] ([place]) Comment on above: Performed By: #### C DORY SMITH ANEU #### [place] [address] #### A1C #### [place] [address] Eosinophils #/vol (Bld) 0.20 10 3/mcL Normal 0.00-0.40 [facility] ([place]) Comment on above: Performed By: #### C DORY SMITH ANEU #### [place] [address] #### A1C #### [address] [address] Eosinophils/100 WBC (Bld) 1.7 % Normal 0.0-7.0 [facility] ([place]) Comment on above: Performed By: #### C SARAH ADIFF, ANEU #### [address] [address] #### A1C #### [address] [address] Lymphocytes #/vol (Bld) 1.90 10 3/mcL Normal 0.77-3.85 [facility] ([place]) Comment on above: Performed By: #### C DORY SMITH, ANEU #### [address] [address] #### A1C #### [address] [address] Lymphocytes/100 WBC (Bld) 20.8 % Normal 10.0-50.0 [facility] ([place]) Comment on above: Performed By: #### C DORY SMITH, ANEU #### [address] [address] #### A1C #### [address] [address] Monocytes/100 WBC (Bld) 9.3 % Normal 1.7-13.0 A [facility] ([place]) Comment on above: Performed By: #### C DORY SMITH, ANEU #### [address] [address] #### A1C #### [address] [address] Neutrophils/100 WBC (Bld) 67.6 % Normal 37.0-80.0 [facility] ([place]) Comment on above: Performed By: #### C DORY SMITH, ANEU #### [address] [address] #### A1C #### [address] [address] .GFRon 08-06-2018 GFR 51 ml/min/1.73sqm Normal [facility] ([place]) Comment on above: Result Comment: GFR Population [...] Performed By: #### B MP, GFR #### [address] [address] GFR Non- 42 ml/min/1.73sqm Normal [facility] ([place]) Comment on above: Result Comment: GFR Population [...] Performed By: #### B MP, GFR #### [address] [address] .NEUABSon 08-06-2018 Neutrophils #/vol (Bld) 6.20 10 3/mcL High 2.85-6.16 [facility] ([place]) Comment on above: Performed By: #### C BC, ADIFF, ANEU #### [address] [address] #### A1C #### [address] [address] A1Con 08-06-2018 Hemoglobin A1c/Hemoglobin.total mass fraction (Bld) 7.9 % High 4.5-6.2 [facility] ([place]) Comment on above: Performed By: #### C BC, ADIFF, ANEU #### [place] [address] [place], [place] [address] #### A1C #### [place] [id number] BMPon 08-06-2018 Calcium mass conc 9.2 mg/dL Normal 8.4-10.2 [facility] ([place]) Comment on above: Performed By: #### B MP, GFR #### [place] [address] Chloride molar conc 105 mmol/L Normal 98-107 [facility] ([place]) Comment on above: Performed By: #### B MP, GFR #### [place] [address] CO2 molar conc 27 mmol/L Normal 23-31 [facility] ([place]) Comment on above: Performed By: #### B MP, GFR #### [place] [address] Creatinine mass conc 1.25 mg/dL High 0.55-1.02 [facility] ([place]) Comment on above: Performed By: #### B MP, GFR #### [place] [address] Electrolyte Balance 11.0 mEq/L Normal [facility] ([place]) Comment on above: Performed By: #### B MP, GFR #### [place] [address] Glucose mass conc 70 mg/dL Low 83-110 [facility] ([place]) Comment on above: Performed By: #### B MP, GFR #### [place] [address] Potassium molar conc 5.0 mmol/L Normal 3.5-5.1 [facility] ([place]) Comment on above: Performed By: #### B MP, GFR #### [place] [address] Sodium molar conc 143 mmol/L Normal 136-145 [facility] ([place]) Comment on above: Performed By: #### B MP, GFR #### [address] [address] Urea nitrogen mass conc 26 mg/dL High 7-18 A [facility] ([place]) Comment on above: Performed By: #### B MP, GFR #### [place] [address] Urea nitrogen/Creatinine mass ratio 21 ratio Normal 7-27 [facility] ([place]) Comment on above: Performed By: #### B MP, GFR #### [place] [address] CBCon 08-06-2018 Erythrocyte distribution width Ratio (RBC) 12.2 % Normal 11.5-14.5 [facility] ([place]) Comment on above: Performed By: #### C DORY SMITH, ANEU #### [place] [address] #### A1C #### [place] [address] Hematocrit Volume Fraction (Bld) 34.6 % Low 37.0-47.0 [facility] ([place]) Comment on above: Performed By: #### DORY SOTO, ANEU #### [address] [address] #### A1C #### [place] [address] Hemoglobin mass conc (Bld) 11.7 G/dL Low 12.0-16.0 [facility] ([place]) Comment on above: Performed By: #### C DORY SMITH, ANEU #### [place] [address] #### A1C #### [address] [address] MCH Entitic mass (RBC) 30.6 pg Normal 27.0-31.2 [facility] ([place]) Comment on above: Performed By: #### C DORY SMITH, ANEU #### [address] [place] [address] #### A1C #### [address] [address] MCHC mass conc (RBC) 33.7 G/dL Normal 33.0-37.0 [facility] ([place]) Comment on above: Performed By: #### C BC ADIFF, ANEU #### [place] [address] #### A1C #### [address] [address] MCV Entitic volume (RBC) 90.9 fL Normal 80.0-94.0 [facility] ([place]) Comment on above: Performed By: #### C DORY SMITH, ANEU #### [place] [address] #### A1C #### [place] [address] Platelet mean volume Entitic volume (Bld) 8.8 fL Normal 7.4-10.4 [facility] ([place]) Comment on above: Performed By: #### C DORY SMITH, ANEU #### [place] [address] #### A1C #### [address] [address] Platelets #/vol (Bld) 355 10 3/mcL Normal 130-400 A [facility] ([place]) Comment on above: Performed By: #### C BCDORY, ANEU #### [place] [address] #### A1C #### [address] [address] RBC #/vol (Bld) 3.81 10 6/mcL Low 4.20-5.40 [facility] ([place]) Comment on above: Performed By: #### C BC, ADIFF, ANEU #### [place] [id number] #### A1C #### [address] [address] WBC #/vol (Bld) 9.20 10 3/mcL Normal 4.60-10.80 [facility] ([place]) Comment on above: Performed By: #### C DORY SMITH ANEU #### [place] [address] [place], [place] [address] #### A1C #### [facility] [address] [place] [address] Vital Signs Date Time Vital Sign Value Performing Clinician Facility 10-02-2024 09:21-0400 Body height 167.[address] Kameron Caruso MD Work Phone: [facility] 10-02-2024 09:21-0400 Diastolic blood pressure 71 mm[Hg] Dr. Kameron Caruso MD Work Phone: [facility] 10-02-2024 09:21-0400 Heart rate 77 /min Dr. Kameron Caruso MD Work Phone: [facility] 10-02-2024 09:21-0400 Respiratory rate 16 /min Dr. Kameron Caruso MD Work Phone: [facility] 10-02-2024 09:21-0400 Systolic blood pressure 111 mm[Hg] Dr. Kameron Caruso MD Work Phone: [facility] 09-09-2024 09:02-0400 Heart rate 100 /min SILVINO DIORLE DO [facility] 09-09-2024 07:58-0400 Blood Pressure Cuff Size SILVINO SCHEATZLE DO [facility] 09-09-2024 07:58-0400 Blood Pressure Location SILVINO SCHEATZLE DO [facility] 09-09-2024 07:58-0400 Blood Pressure Method SILVINO SCHEATZLE DO [facility] 09-09-2024 07:58-0400 Body temperature 96.8 [degF] SILVINO SCHEATZLE DO [facility] 09-09-2024 07:58-0400 Diastolic Blood Pressure Non-Invasive 78 mm[Hg] SILVINO CIDATZLE DO [facility] [place] 09-09-2024 07:58-0400 Heart rate 110 /min SILVINO CIDATZLE DO [facility] [place] 09-09-2024 07:58-0400 Reason For Taking VItal Signs SILVINO CIDATZLE DO [facility] [place] 09-09-2024 07:58-0400 Respiratory rate 16 /min SILVINO CIDATZLE DO [facility] [place] 09-09-2024 07:58-0400 Systolic Blood Pressure Non-Invasive 122 mm[Hg] SILVINO CIDATZLE DO [facility] [place] 09-09-2024 02:45-0400 Body temperature 97.7 [degF] SILVINO CIDATZLE DO [facility] [place] 09-09-2024 02:45-0400 Diastolic Blood Pressure Non-Invasive 60 mm[Hg] SILVINO CIDATZLE DO [facility] [place] 09-09-2024 02:45-0400 Heart rate 92 /min SILVINO CIDATZLE DO [facility] [place] 09-09-2024 02:45-0400 Respiratory rate 16 /min SILVINO CIDATZLE DO [facility] [place] 09-09-2024 02:45-0400 Systolic Blood Pressure Non-Invasive 108 mm[Hg] SIVLINO CIDATZLE DO [facility] [place] 09-08-2024 22:28-0400 Blood Pressure Cuff Size SILVINO CIDATZLE DO [facility] [place] 09-08-2024 22:28-0400 Blood Pressure Location SILVINO CIDATZLE DO [facility] [place] 09-08-2024 22:28-0400 Blood Pressure Method SILVINO CIDATZLE DO [facility] [place] 09-08-2024 22:28-0400 Body temperature 97.88 [degF] SILVINO CIDATZLE DO [facility] [place] 09-08-2024 22:28-0400 Diastolic Blood Pressure Non-Invasive 54 mm[Hg] SILVINO CIDATZLE DO [facility] [place] 09-08-2024 22:28-0400 Heart rate 92 /min SILVINO CIDATZLE DO [facility] [place] 09-08-2024 22:28-0400 Reason For Taking VItal Signs SILVINO CIDATZLE DO [facility] [place] 09-08-2024 22:28-0400 Respiratory rate 16 /min SILVINO CIDATZLE DO [facility] [place] 09-08-2024 22:28-0400 Systolic Blood Pressure Non-Invasive 118 mm[Hg] SILVINO CIDATZLE DO [facility] [place] 09-08-2024 18:21-0400 Heart rate 90 /min SILVINO CIDATZLE DO [facility] [place] 09-08-2024 09:08-0400 Blood Pressure Cuff Size SILVINO CIDATZLE DO [facility] [place] 09-08-2024 09:08-0400 Blood Pressure Location SILVINO CIDATZLE DO [facility] [place] 09-08-2024 09:08-0400 Blood Pressure Method SILVINO CIDATZLE DO [facility] [place] 09-08-2024 09:08-0400 Heart rate 114 /min SILVINO CIDATZLE DO [facility] [place] 09-08-2024 09:08-0400 Reason For Taking VItal Signs SILVINO HA DO [facility] [place] 09-04-2024 10:54-0400 Body temperature 96.62 [degF] SILVINO HA DO [facility] [place] 09-03-2024 00:26-0400 Body temperature 97.34 [degF] SILVINO CIDATZLE DO [facility] [place] 08-30-2024 22:54-0400 Body temperature 98.06 [degF] SILVINO RADERLE DO [place] 08-26-2024 10:36-0400 Body weight 76 kg SILVINO HA DO [facility] [place] 08-19-2024 06:00-0400 Body weight 75.3 kg SILVINO HA DO [place] 08-15-2024 14:27-0400 Body height 170.2 cm SILVINO HA DO [place] 08-15-2024 14:27-0400 Body weight 75.4 kg SILVINO HA DO [facility] 08-15-2024 14:27-0400 Body weight 26.03 kg/m2 SILVINO HA DO [facility] 08-15-2024 09:02-0400 Diastolic blood pressure 69 mm[Hg] Prema Ramos MD Work Phone: [facility] 08-15-2024 09:02-0400 Systolic blood pressure 128 mm[Hg] Prema Ramos MD Work Phone: [facility] 08-15-2024 07:28-0400 Heart rate 86 /min Prema Ramos MD Work Phone: [facility] 08-15-2024 07:18-0400 Body temperature 97.3 [degF] Prema Ramos MD Work Phone: 1(554)[phone] [place] [address] 08-15-2024 07:18-0400 Respiratory rate 23 /min Prema Ramos MD Work Phone: 9(185)[phone] [place] [address] 08-15-2024 07:18-0400 SaO2% (BldA) [Mass fraction] 95 % Prema Ramos MD Work Phone: 4(546)[phone] [place] [address] 08-05-2024 08:00-0400 Body height 170.2 cm Prema Ramos MD Work Phone: 1(240)[phone] [place] [address] 08-05-2024 08:00-0400 Body mass index (BMI) [Ratio] 26.94 kg/m2 Prema Ramos MD Work Phone: 1(615)[phone] [place] [address] 08-05-2024 08:00-0400 Body weight 78.02 kg Prema Ramos MD Work Phone: 3(076)[phone] [place] [address] 08-02-2024 13:52-0400 Body temperature 98 [degF] Dr. Kameron Caruso MD Work Phone: [facility] 08-02-2024 13:52-0400 Diastolic blood pressure 91 mm[Hg] Dr. Kameron Caruso MD Work Phone: [facility] 08-02-2024 13:52-0400 Heart rate 109 /min Dr. Kameron Caruso MD Work Phone: [facility] 08-02-2024 13:52-0400 Respiratory rate 16 /min Dr. Kameron Caruso MD Work Phone: [facility] 08-02-2024 13:52-0400 SaO2% (BldA) [Mass fraction] 98 % Dr. Kameron Caruso MD Work Phone: [facility] 08-02-2024 13:52-0400 Systolic blood pressure 153 mm[Hg] Dr. Kameron Caruso MD Work Phone: [facility] 08-02-2024 12:46-0400 Body height 167.[address] Kameron Caruso MD Work Phone: [facility] 08-02-2024 12:46-0400 Body mass index (BMI) [Ratio] 26.6 kg/m2 Dr. Kameron Caruso MD Work Phone: [facility] 08-02-2024 12:46-0400 Body weight [address] Kameron Caruso MD Work Phone: [facility] 06-26-2024 09:39-0500 Body mass index (BMI) [Ratio] 27.25 kg/m2 Emma Sotomayor BILLIARD PLAYER.COMPUTER SUPPORT ANALYST Work Phone: [facility] 06-26-2024 09:39-0500 Body weight 78.93 kg Emma Sotomayor BILLIARD PLAYER.COMPUTER SUPPORT ANALYST Work Phone: [facility] 06-26-2024 09:39-0500 Diastolic blood pressure 88 mm[Hg] Emma Sotomayor BILLIARD PLAYER.COMPUTER SUPPORT ANALYST Work Phone: [facility] 06-26-2024 09:39-0500 Heart rate 93 /min Emma Sotomayor BILLIARD PLAYER.COMPUTER SUPPORT ANALYST Work Phone: [facility] 06-26-2024 09:39-0500 Respiratory rate 16 /min Emma Sotomayor BILLIARD PLAYER.COMPUTER SUPPORT ANALYST Work Phone: [facility] 06-26-2024 09:39-0500 SaO2% (BldA) [Mass fraction] 98 % Emma Sotomayor BILLIARD PLAYER.COMPUTER SUPPORT ANALYST Work Phone: [facility] 06-26-2024 09:39-0500 Systolic blood pressure 144 mm[Hg] Emma Sotomayor BILLIARD PLAYER.COMPUTER SUPPORT ANALYST Work Phone: [facility] 05-31-2024 08:56-0500 Diastolic blood pressure 84 mm[Hg] Kameron Caruso MD Work Phone: [facility] 05-31-2024 08:56-0500 Systolic blood pressure 136 mm[Hg] Kameron Caruso MD Work Phone: [facility] 05-31-2024 08:47-0500 Body mass index (BMI) [Ratio] 27.28 kg/m2 Kameron Caruso MD Work Phone: [facility] 05-31-2024 08:47-0500 Body weight 79 kg Kameron Caruso MD Work Phone: [facility] 05-31-2024 08:47-0500 Heart rate 100 /min Kameron Caruso MD Work Phone: [facility] 05-31-2024 08:47-0500 Respiratory rate 18 /min Kameron Caruso MD Work Phone: [facility] 11-28-2023 09:42-0400 Diastolic blood pressure 78 mm[Hg] Kameron Caruso MD Work Phone: [facility] 11-28-2023 09:42-0400 Systolic blood pressure 142 mm[Hg] Kameron Caruso MD Work Phone: [facility] 11-28-2023 09:41-0400 Body mass index (BMI) [Ratio] 27.82 kg/m2 Kameron Caruso MD Work Phone: [facility] 11-28-2023 09:41-0400 Body weight 80.56 kg Kameron Caruso MD Work Phone: [facility] 11-28-2023 09:41-0400 Heart rate 68 /min Kameron Caruso MD Work Phone: [facility] 11-28-2023 09:41-0400 Respiratory rate 18 /min Kameron Caruso MD Work Phone: [facility] 10-10-2023 07:31-0400 Body mass index (BMI) [Ratio] 28.35 kg/m2 David Dupree APRN.COMPUTER SUPPORT ANALYST Work Phone: [facility] 10-10-2023 07:31-0400 Body temperature 97.5 [degF] David Dupree APRN.COMPUTER SUPPORT ANALYST Work Phone: [facility] 10-10-2023 07:31-0400 Body weight 82.1 kg [facility] BILLIARD PLAYER.COMPUTER SUPPORT ANALYST Work Phone: [facility] 10-10-2023 07:31-0400 Diastolic blood pressure 82 mm[Hg] David Pendlebury BILLIARD PLAYER.COMPUTER SUPPORT ANALYST Work Phone: [facility] 10-10-2023 07:31-0400 Heart rate 58 /min David Pendlebury BILLIARD PLAYER.COMPUTER SUPPORT ANALYST Work Phone: [facility] 10-10-2023 07:31-0400 Respiratory rate 18 /min [facility] BILLIARD PLAYER.COMPUTER SUPPORT ANALYST Work Phone: [facility] 10-10-2023 07:31-0400 SaO2% (BldA) [Mass fraction] 100 % David Locolebury BILLIARD PLAYER.COMPUTER SUPPORT ANALYST Work Phone: [facility] 10-10-2023 07:31-0400 Systolic blood pressure 128 mm[Hg] David Pendlebury BILLIARD PLAYER.COMPUTER SUPPORT ANALYST Work Phone: [facility] 09-29-2023 14:14-0400 Body mass index (BMI) [Ratio] 29 kg/m2 Radha Levine BILLIARD PLAYER.COMPUTER SUPPORT ANALYST Work Phone: [facility] 09-29-2023 14:14-0400 Body temperature 97.81 [degF] Radha Levine BILLIARD PLAYER.COMPUTER SUPPORT ANALYST Work Phone: [facility] 09-29-2023 14:14-0400 Body weight 84 kg Radha Levine BILLIARD PLAYER.COMPUTER SUPPORT ANALYST Work Phone: [facility] 09-29-2023 14:14-0400 Diastolic blood pressure 91 mm[Hg] Radha Levine BILLIARD PLAYER.COMPUTER SUPPORT ANALYST Work Phone: [facility] 09-29-2023 14:14-0400 Heart rate 54 /min Radha Levine BILLIARD PLAYER.COMPUTER SUPPORT ANALYST Work Phone: [facility] 09-29-2023 14:14-0400 Respiratory rate 18 /min Radha Levine BILLIARD PLAYER.COMPUTER SUPPORT ANALYST Work Phone: [facility] 09-29-2023 14:14-0400 SaO2% (BldA) [Mass fraction] 99 % Radha Levine BILLIARD PLAYER.COMPUTER SUPPORT ANALYST Work Phone: [facility] 09-29-2023 14:14-0400 Systolic blood pressure 148 mm[Hg] Radha Levine BILLIARD PLAYER.COMPUTER SUPPORT ANALYST Work Phone: [facility] 05-27-2022 09:42-0500 Body weight 83.83 kg Kameron Caruso MD Work Phone: [facility] 05-27-2022 09:42-0500 Diastolic blood pressure 84 mm[Hg] Kameron Caruso MD Work Phone: [facility] 05-27-2022 09:42-0500 Heart rate 68 /min Kameron Caruso MD Work Phone: [facility] 05-27-2022 09:42-0500 Respiratory rate 16 /min Kameron Caruso MD Work Phone: [facility] 05-27-2022 09:42-0500 Systolic blood pressure 136 mm[Hg] Kameron Caruso MD Work Phone: [facility] 03-02-2022 10:52-0400 Diastolic blood pressure 76 mm[Hg] Emma Tannhof BILLIARD PLAYER.COMPUTER SUPPORT ANALYST Work Phone: [facility] 03-02-2022 10:52-0400 Heart rate 92 /min Emma Tannhof BILLIARD PLAYER.COMPUTER SUPPORT ANALYST Work Phone: [facility] 03-02-2022 10:52-0400 Respiratory rate 18 /min Emma Tannhof BILLIARD PLAYER.COMPUTER SUPPORT ANALYST Work Phone: [facility] 03-02-2022 10:52-0400 Systolic blood pressure 140 mm[Hg] Emma Tannhof BILLIARD PLAYER.COMPUTER SUPPORT ANALYST Work Phone: [facility] 11-23-2021 09:39-0400 Body weight 83.1 kg Kameron Caruso MD Work Phone: [facility] 11-23-2021 09:39-0400 Diastolic blood pressure 80 mm[Hg] Kameron Caruso MD Work Phone: [facility] 11-23-2021 09:39-0400 Heart rate 84 /min Kameron Caruso MD Work Phone: [facility] 11-23-2021 09:39-0400 Respiratory rate 16 /min Kameron Caruso MD Work Phone: [facility] 11-23-2021 09:39-0400 Systolic blood pressure 138 mm[Hg] Kameron Caruso MD Work Phone: [facility] 10-16-2019 10:09-0400 BP Diastolic 72 mm[Hg] Santiago Miller [facility] , [place] 10-16-2019 10:09-0400 BP Systolic 144 mm[Hg] Santiago Jose [facility] , [place] 10-16-2019 10:09-0400 Pulse (Heart Rate) 62 /min Santiago Jose [facility], [place] 10-16-2019 10:09-0400 Pulse Oximetry 98 % Santiago Miller [facility] , [place] 10-16-2019 10:09-0400 Respiratory Rate 18 /min Santiago Miller [facility], [place] 10-16-2019 09:15-0400 BMI (Body Mass Index) 29.44 kg/m2 Santiago Miller [facility], [place] 10-16-2019 09:15-0400 Body Temperature 97.81 [degF] [facility] [place] 10-16-2019 09:15-0400 Body weight 85.28 kg [facility] , [place] 10-16-2019 09:15-0400 Height 170.2 cm Santiago Miller [facility] , [place] 01-09-2019 12:06-0400 BP Diastolic 73 mm[Hg] Santiago Jose [facility] , [place] 01-09-2019 12:06-0400 BP Systolic 121 mm[Hg] [facility] [place] 01-09-2019 11:50-0400 Pulse (Heart Rate) 64 /min Santiago Miller [facility], [place] 01-09-2019 11:50-0400 Pulse Oximetry 100 % Santiago Miller [facility] , [place] 01-09-2019 11:50-0400 Respiratory Rate 18 /min Santiago Miller [facility], [place] 01-09-2019 10:28-0400 BMI (Body Mass Index) 28.82 kg/m2 Santiago Miller [facility], [place] 01-09-2019 10:28-0400 Body weight 83.46 kg Santiago Miller [facility] , [place] 01-09-2019 10:28-0400 Height 170.2 cm Santiago Miller [facility] , [place] 01-09-2019 10:27-0400 Body Temperature 97.5 [degF] Santiago Miller [facility], [place] Encounters Encounter Date Encounter Type Care Provider Facility Start: 12-24-2024 ambulatory Safia Ruelas OLS Fa cility:[facility] Start: 12-24-2024 Safia Torres Start: 12-17-2024 ambulatory Safia Ruelas OLS Fa cility:[facility] Start: 12-17-2024 Safia Torres Start: 12-10-2024 ambulatory Safia VARGAS Fa cility:[facility] Start: 12-10-2024 Safia Torres Start: 12-03-2024 ambulatory Kameron Lemus y:[facility] Start: 12-03-2024 Safia Torres Start: 11-28-2024 End: 11-28-[address] Kameron Caruso MD Work Phone: [facility] Start: 11-28-2024 End: 11-28-2024 Bret WILKERSON -[facility] Work Phone: Start: 11-26-2024 ambulatory Safia Ruelas OLS Fa cility:[facility] Start: 11-26-2024 Registered Referred Safia Torres Start: 11-26-2024 Efewjosé antonio Torres Start: 11-25-2024 ambulatory Efewongskye Westone OLS Fa cility:[facility] Start: 11-25-2024 Registered Referred Safia Torres Start: 11-25-2024 Safia Martin - [place] Start: 11-20-2024 End: 11-20-[address] Kameron Caruso MD Work Phone: [facility] Start: 11-20-2024 End: 11-20-2024 Bret WILKERSON [facility]me Work Phone: Start: 11-19-2024 ambulatory Efjean marieongbe Enricoe OLS Fa cility:[facility] Start: 11-19-2024 Registered Referred Safia Torres Start: 11-19-2024 Safia Martin - [place] Start: 11-12-2024 ambulatory Efewongbe Oleghe OLS Fa cility:[facility] Start: 11-12-2024 Registered Referred Safia Torres Start: 11-12-2024 Safia Martin - [place] Start: 11-05-2024 ambulatory Efewongbe Cheoghe OLS Fa cility:[facility] Start: 11-05-2024 Registered Referred Safia Torres Start: 11-05-2024 Safia Torres Start: 10-30-2024 End: 10-30-[address] Kameron Caruso MD Work Phone: [facility] Start: 10-30-2024 End: 10-30-2024 [facility] Start: 10-30-2024 End: 10-30-2024 Bret WILKERSON [facility] ome Work Phone: Start: 10-29-2024 End: 10-29-[address] Safia Ruelas MD -[facility] Work Phone: Start: 10-29-2024 End: 10-29-[address] Kameron Caruso MD Work Phone: [facility] Start: 10-29-2024 Registered Referred Safia Torres Start: 10-29-2024 End: 10-29-2024 Dr. Safia Ruelas MD -[facility] Work Phone: Start: 10-23-2024 ambulatory Kameron Lemus y:[facility] Start: 10-23-2024 Registered Referred Safia Torres Start: 10-23-2024 Safia Torres Start: 10-22-2024 End: 10-22-2024 Patient encounter procedure Bret Snyder [facility] Work Phone: Start: 10-22-2024 End: 10-22-[address] Kameron Caruso MD Work Phone: [facility] Start: 10-22-2024 Registered Referred Safia Torres Start: 10-22-2024 End: 10-22-2024 [facility] Start: 10-15-2024 ambulatory Safia Yusuf cility:[facility] Start: 10-15-2024 Registered Referred Safia Torres Start: 10-15-2024 Safia Torres Start: 10-09-2024 End: 10-09-[address] Kameron Caruso MD Work Phone: [facility] Start: 10-09-2024 End: 10-09-2024 Patient encounter procedure Bret WILKERSON -[facility] Work Phone: Start: 10-09-2024 End: 10-09-2024 Bret WILKERSON -[facility] ome Work Phone: Start: 10-08-2024 ambulatory Efewjosé antonio [place] OLS Fa cility:[facility] Start: 10-08-2024 Registered Referred Safia Torres Start: 10-08-2024 Safia Torres Start: 10-02-2024 End: 10-02-[address] Mj Benavides MD -[facility] Work Phone: Start: 10-02-2024 End: 10-02-2024 Dr. Mj Benavides MD -[facility] Work Phone: Start: 10-02-2024 End: 10-02-[address] Kameron Caruos MD Work Phone: [facility] Work Phone: Start: 10-01-2024 ambulatory Efsherry Ruelas OLS Fa cility:[facility] Start: 10-01-2024 Registered Referred Safia Torres Start: 10-01-2024 Safia Torres Start: 09-29-2024 ambulatory Efewongbe Oleghe OLS Fa cility:[facility] Start: 09-29-2024 Registered Referred Safia Torres Start: 09-29-2024 Safia Torres Start: 09-24-2024 ambulatory Efewongbe Oleghe OLS Fa cility:[facility] Start: 09-24-2024 Registered Referred Safia Torres Start: 09-24-2024 Safia Torres Start: 09-17-2024 ambulatory Safia Ruelas OLS Fa cility:[facility] Start: 09-17-2024 Registered Referred Safia Torres Start: 09-17-2024 Safia Torres Start: 09-11-2024 End: 09-11-2024 ambulatory Bret Snyder [employer] Facility:[facility] Start: 09-11-2024 End: 09-11-2024 Patient encounter procedure Bret Snyder [employer]-C -[facility] Work Phone: Start: 09-11-2024 End: 09-11-2024 Bret Snyder [employer]-C -[facility] Work Phone: Start: 09-10-2024 End: 09-10-[address] Safia Ruelas MD -[facility] Work Phone: Start: 09-10-2024 End: 09-10-2024 ambulatory Safia Ruelas Facility:[facility] Start: 09-10-2024 Registered Referred Safia Torres Start: 09-10-2024 End: 09-10-2024 Dr. Safia Ruelas MD -[facility] Work Phone: Start: 08-30-2024 End: 08-30-2024 Telephone encounter Kameron Caruso MD Work Phone: [facility] Comment on above: [facility] baudilioi fawn verbal agree to follow Start: 08-15-2024 End: 09-09-2024 Evaluation and management of inpatient SILVINO HA DO Tylre Garcia Start: 08-09-2024 Evaluation and manag ement of inpatient KAMERON CARUSO Facility:[facility] Start: 08-06-2024 Evaluation and manag ement of inpatient [facility] Start: 08-02-2024 End: 08-02-2024 ambulatory JUVENTINO ROGERS Facility:[facility] Start: 08-02-2024 End: 08-15-2024 Evaluation and [...] encounter Kameron Caruso MD Work Phone: [facility] Comment on above: medication not on cu rrent med list Start: 06-26-2024 End: 06-26-2024 Office outpatient visit 25 minutes Emma Sotomayor BILLIARD PLAYER.COMPUTER SUPPORT ANALYST Work Phone: [facility] [facility] [place] Comment on above: Atrial fibrillation, unspecified type (HCC) (Primary Dx); Hypothyroidism, unspecified type; Need for malaria prophylaxis Start: 06-26-2024 End: 06-26-2024 ambulatory [facility] SOTOMAYOR Facility:[facility] Start: 06-25-2024 ambulatory KAMERON CARUSO Facil ity:[facility] Start: 06-24-2024 End: 06-24-2024 Telephone encounter Kameron Caruso MD Work Phone: [facility] [place] Comment on above: Patient Update Start: 06-11-2024 End: 06-11-2024 Telephone encounter Kameron Caruso MD Work Phone: [facility] [place] Comment on above: Results Start: 06-11-2024 End: 06-11-2024 ambulatory KAMERON CARUSO Facility:[facility] Start: 06-10-2024 End: 06-11-2024 Telephone encounter Kameron Caruso MD Work Phone: [facility] [place] Comment on above: Medication Problem Start: 05-31-2024 End: 05-31-2024 ambulatory [facility] Facility:[facility] Start: 05-31-2024 End: 05-31-2024 Patient encounter procedure Kameron Caruso MD Work Phone: [facility] [place] Comment on above: Essential hypertensi [...] unspecified type (HCC) Start: 05-23-2024 End: 05-23-2024 [facility] Facility:[facility] Start: 11-28-2023 End: 11-28-2023 [facility] Facility:[facility] Start: 11-28-2023 End: 11-28-2023 Patient encounter procedure Kameron Caruso MD Work Phone: [facility] [place] Comment on above: 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, unspecified CKD stage, unspecified whether long chain quiller tender insulin use (HCC) (Primary Dx); Essential hypertension, benign; Chronic kidney disease, stage 3a (HCC); Hyperlipidemia, unspecified hyperlipidemia type; Hypothyroidism, unspecified type; Edema of left lower leg; Memory loss; Type 2 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, without long-term current use of insulin (HCC) Start: 11-27-2023 End: 11-27-2023 [facility] Facility:[facility] Start: 10-10-2023 End: 10-10-2023 [facility] Facility:[facility] Start: 10-10-2023 End: 10-10-2023 Office outpatient visit 25 minutes David Dupree APRN.CNP Work Phone: [facility] Comment on above: Rash (Primary Dx) Start: 09-29-2023 End: 09-29-2023 ambulatory KAMERON CARUSO Facility:[facility] Start: 09-29-2023 End: 09-29-2023 Patient encounter procedure Radha Levine APRN.COMPUTER SUPPORT ANALYST Work Phone: [facility] Comment on above: Allergic contact lexi matitis due to plant (Primary Dx) Start: 09-19-2023 Refill Kameron nixon MD Work Phone: [facility] [place] Comment on above: Refill Request Start: 04-08-2023 Telephone encounter Kameron bucio MD Work Phone: [address] [place] [address] Comment on above: Refill Request Start: 11-25-2022 Telephone encounter Kameron bucio MD Work Phone: [facility] [place] Comment on above: Patient Question Start: 05-27-2022 End: 05-27-2022 Patient encounter procedure Kameron Caruso MD Work Phone: [facility] [place] Comment on above: Essential hypertensi on, benign (Primary Dx); Hypothyroidism, unspecified type; Type 2 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, without long-term current use of insulin (HCC); Hyperlipidemia, unspecified hyperlipidemia type; Chronic kidney disease, stage 3a (HCC); Edema of left lower leg; Wellness examination Start: 05-27-2022 End: 05-27-2022 Patient encounter status [facility] Start: 04-11-2022 Refill Kameron nixon MD Work Phone: [facility] Comment on above: Refill Request Start: 03-02-2022 ambulatory Kameron nixon MD Work Phone: [facility] [place] Comment on above: Back Pain Start: 03-02-2022 End: 03-02-2022 Patient encounter procedure Emma Sotomayor APRN.COMPUTER SUPPORT ANALYST Work Phone: [facility] [place] Comment on above: Acute midline low ba ck pain without sciatica (Primary Dx) Start: 01-11-2022 Refill Mj ORTIZ RN.COMPUTER SUPPORT ANALYST Work Phone: [facility] [place] Comment on above: Refill Request Start: 01-11-2022 Refill Kameron nixon MD Work Phone: [facility] [place] Comment on above: Refill Request Start: 12-16-2021 Telephone encounter Kameron bucio MD Work Phone: [facility] [place] Comment on above: Diabetic Testing Sup plies Start: 11-23-2021 End: 11-23-2021 Refill Kameron Caruso MD Work Phone: [facility] [place] Comment on above: 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, unspecified CKD stage, unspecified whether senior care insulin use (HCC) (Primary Dx); Essential hypertension, benign; Hyperlipidemia, unspecified hyperlipidemia type; Stage 3b chronic kidney disease (HCC); Hypothyroidism, unspecified type; Memory loss Start: 10-14-2021 Refill Kameron nixon MD Work Phone: [facility] Comment on above: Refill Request Start: 09-27-2021 Telephone encounter Kameron bucio MD Work Phone: [facility] Comment on above: information requeste d/rxs needed Start: 09-13-2021 Telephone encounter Kameron bucio MD Work Phone: [facility] Comment on above: Patient Question; Me dication [...] Date Procedure Procedure Detail Performing Clinician Start: 12-24-2024 Blood count smear mc rscp w/mnl difrntl wbc count Dr. Kameron Caruso MD Work Phone: Start: 12-24-2024 Mean corpuscular hem oglobin concentration determination Dr. Kameron Caruso MD Work Phone: Start: 12-24-2024 Nucleated red blood cell count procedure Dr. Kameron Caruso MD Work Phone: Start: 12-24-2024 Platelet mean volume determination Dr. Kameron Caruso MD Work Phone: Start: 12-17-2024 Blood count smear mc rscp w/mnl difrntl wbc count Dr. Kameron Caruso MD Work Phone: Start: 12-17-2024 Mean corpuscular hem oglobin concentration determination Dr. Kameron Caruso MD Work Phone: Start: 12-17-2024 Nucleated red blood cell count procedure Dr. Kameron Caruso MD Work Phone: Start: 12-17-2024 Platelet mean volume determination Dr. Kameron Caruso MD Work Phone: Start: 12-10-2024 Blood count smear mc rscp w/mnl difrntl wbc count Dr. Kameron Caruso MD Work Phone: Start: 12-10-2024 Mean corpuscular hem oglobin concentration determination Dr. Kameron Caruso MD Work Phone: Start: 12-10-2024 Nucleated red blood cell count procedure Dr. Kameron Caruso MD Work Phone: Start: 12-10-2024 Platelet mean volume determination Dr. Kameron Caruso MD Work Phone: Start: 12-03-2024 Blood count smear mc rscp w/mnl difrntl wbc count Dr. Kameron Caruso MD Work Phone: Start: 12-03-2024 Mean corpuscular hem oglobin concentration determination Dr. Kameron Caruso MD Work Phone: Start: 12-03-2024 Nucleated red blood cell count procedure Dr. Kameron Caruso MD Work Phone: Start: 12-03-2024 Platelet mean volume determination Dr. Kameron Caruso MD Work Phone: Start: 11-26-2024 Blood count smear mc rscp w/mnl difrntl wbc count Dr. Kameron Caruso MD Work Phone: Start: 11-26-2024 Mean corpuscular hem oglobin concentration determination Dr. Kameron Caruso MD Work Phone: Start: 11-26-2024 Nucleated red blood cell count procedure Dr. Kameron Caruso MD Work Phone: Start: 11-26-2024 Platelet mean volume determination Dr. Kameron Caruso MD Work Phone: Start: 11-25-2024 Clostridium difficil e detection Dr. Kameron Caruso MD Work Phone: Start: 11-19-2024 Blood count smear mc rscp w/mnl difrntl wbc count Dr. Kameron Caruso MD Work Phone: Start: 11-19-2024 Mean corpuscular hem oglobin concentration determination Dr. Kameron Caruso MD Work Phone: Start: 11-19-2024 Nucleated red blood cell count procedure Dr. Kameron Caruso MD Work Phone: Start: 11-19-2024 Platelet mean volume determination Dr. Kameron Caruso MD Work Phone: Start: 11-12-2024 Blood count smear mc rscp w/mnl difrntl wbc count Dr. Kameron Caruso MD Work Phone: Start: 11-12-2024 Mean corpuscular hem oglobin concentration determination Dr. Kameron Caruso MD Work Phone: Start: 11-12-2024 Nucleated red blood cell count procedure Dr. Kameron Caruso MD Work Phone: Start: 11-12-2024 Platelet mean volume determination Dr. Kameron Caruso MD Work Phone: Start: 11-05-2024 Blood count smear mc rscp w/mnl difrntl wbc count Dr. Kameron Caruso MD Work Phone: Start: 11-05-2024 Mean corpuscular hem oglobin concentration determination Dr. Kameron Caruso MD Work Phone: Start: 11-05-2024 Nucleated red blood cell count procedure Dr. Kameron Caruso MD Work Phone: Start: 11-05-2024 Platelet mean volume determination Dr. Kameron Caruso MD Work Phone: Start: 10-29-2024 Blood count smear mc rscp w/mnl difrntl wbc count Dr. Kameron Caruso MD Work Phone: Start: 10-29-2024 Mean corpuscular hem oglobin concentration determination Dr. Kameron Caruso MD Work Phone: Start: 10-29-2024 Nucleated red blood cell count procedure Dr. Kameron Caruso MD Work Phone: Start: 10-29-2024 Platelet mean volume determination Dr. Kameron Caruso MD Work Phone: Start: 10-23-[address] Kameron Caruso MD Work Phone: Start: 10-23-2024 Urnls dip stick/tabl et reagent auto microscopy Dr. Kameron Caruso MD Work Phone: Start: 10-22-2024 Blood count smear mc rscp w/mnl difrntl wbc count Dr. Kameron Caruso MD Work Phone: Start: 10-22-2024 Mean corpuscular hem oglobin concentration determination Dr. Kameron Caruso MD Work Phone: Start: 10-22-2024 Nucleated red blood cell count procedure Dr. Kameron Caruso MD Work Phone: Start: 10-22-2024 Platelet mean volume determination Dr. Kameron Caruso MD Work Phone: Start: 10-15-2024 Blood count smear mc rscp w/mnl difrntl wbc count Dr. Kameron Caruso MD Work Phone: Start: 10-15-2024 Mean corpuscular hem oglobin concentration determination Dr. Kameron Caruso MD Work Phone: Start: 10-15-2024 Nucleated red blood cell count procedure Dr. Kameron Caruso MD Work Phone: Start: 10-15-2024 Platelet mean volume determination Dr. Kameron Caruso MD Work Phone: Start: 10-08-2024 Blood count smear mc rscp w/mnl difrntl wbc count Dr. Kameron Caruso MD Work Phone: Start: 10-08-2024 Mean corpuscular hem oglobin concentration determination Dr. Kameron Caruso MD Work Phone: Start: 10-08-2024 Nucleated red blood cell count procedure Dr. Kameron Caruso MD Work Phone: Start: 10-08-2024 Platelet mean volume determination Dr. Kameron Caruso MD Work Phone: Start: 10-02-2024 Evaluation of diagno stic study results Dr. Kameron Caruso MD Work Phone: Start: 10-01-2024 Blood count smear mc rscp w/mnl difrntl wbc count Dr. Kameron Caruso MD Work Phone: Start: 10-01-2024 Mean corpuscular hem oglobin concentration determination Dr. Kameron Caruso MD Work Phone: Start: 10-01-2024 Nucleated red blood cell count procedure Dr. Kameron Caruso MD Work Phone: Start: 10-01-2024 Platelet mean volume determination Dr. Kameron Caruso MD Work Phone: Start: 09-29-2024 Cl[address]ium difficil e detection Dr. Kameron Caruso MD Work Phone: Start: 09-24-2024 Blood count smear mc rscp w/mnl difrntl wbc count Dr. Kameron Caruso MD Work Phone: Start: 09-24-2024 Mean corpuscular hem oglobin concentration determination Dr. Kameron Caruso MD Work Phone: Start: 09-24-2024 Nucleated red blood cell count procedure Dr. Kameron Caruso MD Work Phone: Start: 09-24-2024 Platelet mean volume determination Dr. Kameron Caruso MD Work Phone: Start: 09-17-2024 Blood count smear mc rscp w/mnl difrntl wbc count Dr. Kameron Caruso MD Work Phone: Start: 09-17-2024 Mean corpuscular hem oglobin concentration determination Dr. Kameron Caruso MD Work Phone: Start: 09-17-2024 Nucleated red blood cell count procedure Dr. Kameron Caruso MD Work Phone: Start: 09-17-2024 Platelet mean volume determination Dr. Kameron Caruso MD Work Phone: Start: 09-17-2024 Total cholesterol:HD L ratio measurement Dr. Kameron Caruso MD Work Phone: Start: 09-10-2024 Blood count smear mc rscp w/mnl difrntl wbc count Dr. Kameron Caruso MD Work Phone: Start: 09-10-2024 Mean corpuscular hem oglobin concentration determination Dr. Kameron Caruso MD Work Phone: Start: 09-10-2024 Nucleated red blood cell count procedure Dr. Kameron Caruso MD Work Phone: Start: 09-10-2024 Platelet mean volume determination Dr. Kameron Caruso MD Work Phone: Start: 08-15-2024 CARDIAC RHYTHM (SCANNED) Other Other OT Start: 08-15-2024 Glucose measurement, blood Christos Voss MD Work Phone: Start: 08-15-2024 Glucose measurement, blood Christos Voss MD Work Phone: Start: 08-15-2024 Assay of magnesium Abram Mccoy BILLIARD PLAYER-COMPUTER SUPPORT ANALYST Work Phone: Start: 08-15-2024 Glucose measurement, blood Christos Voss MD Work Phone: Start: 08-14-2024 Glucose measurement, blood Christos Voss MD Work Phone: Start: 08-14-2024 Glucose measurement, blood Christos Voss MD Work Phone: Start: 08-14-2024 Glucose measurement, blood Christos Voss MD Work Phone: Start: 08-14-2024 Assay of magnesium [facility]oule scott [facility] Work Phone: Start: 08-13-2024 Glucose measurement, blood Christos Voss MD Work Phone: Start: 08-13-2024 Glucose measurement, blood Christos Voss MD Work Phone: Start: 08-13-2024 Glucose measurement, blood Christos Voss MD Work Phone: Start: 08-13-2024 Glucose measurement, blood Felicity Castellano MD Work Phone: Start: 08-13-2024 Assay of magnesium [facility] Work Phone: Start: 08-13-2024 Glucose measurement, blood Felicity Castellano MD Work Phone: Start: 08-12-2024 Glucose measurement, blood Felicity Castellano MD Work Phone: Start: 08-12-2024 Glucose measurement, blood Felicity Castellano MD Work Phone: Start: 08-12-2024 Glucose measurement, blood Felicity Castellano MD Work Phone: Start: 08-12-2024 Assay of magnesium [facility]am [facility] Work Phone: Start: 08-12-2024 Glucose measurement, blood Felicity Castellano MD Work Phone: Start: 08-11-2024 Glucose measurement, blood Felicity Castellano MD Work Phone: Start: 08-11-2024 Glucose measurement, blood Felicity Castellano MD Work Phone: Start: 08-11-2024 Glucose measurement, blood Felicity Castellano MD Work Phone: Start: 08-11-2024 Assay of magnesium Abdoulmelanie scott Hwang Nadine BILLI[employer] PLAYER-COMPUTER SUPPORT ANALYST Work Phone: Start: 08-10-2024 Glucose measurement, blood Felicity Castellano MD Work Phone: Start: 08-10-2024 Glucose measurement, blood Felicity Castellano MD Work Phone: Start: 08-10-2024 End: 08-10-2024 Culture bacterial blood aerobic w/id isolates Radha Gr BILLI[employer] PLAYER-COMPUTER SUPPORT ANALYST Work Phone: Start: 08-10-2024 Glucose measurement, blood Felicity Castellano MD Work Phone: Start: 08-10-2024 End: 08-10-2024 Glucose measurement, blood Felicity Castellano MD Work Phone: Start: 08-10-2024 Glucose measurement, blood Felicity Castellano MD Work Phone: Start: 08-10-2024 Assay of magnesium Abram Schulteameh BILLIARD PLAYER-COMPUTER SUPPORT ANALYST Work Phone: Start: 08-10-2024 Glucose measurement, blood [...] Phone: Start: 08-09-2024 Assay of magnesium Abram Schulteameh BILLIARD PLAYER-COMPUTER SUPPORT ANALYST Work Phone: Start: 08-09-2024 Glucose measurement, blood Felicity Castellano MD Work Phone: Start: 08-08-2024 Glucose measurement, blood Felicity Castellano MD Work Phone: Start: 08-08-2024 Culture bct isol&prs mptv id isolate ea urine Bella Cardenas BILLIARD PLAYER-COMPUTER SUPPORT ANALYST Work Phone: Start: 08-08-2024 EXTRA MICRO Bella Hwang Ma rtinis BILLIARD PLAYER-COMPUTER SUPPORT ANALYST Work Phone: Start: 08-08-2024 URINALYSIS REFLEX TO CULTURE Bella Cardenas BILLIARD PLAYER-COMPUTER SUPPORT ANALYST Work Phone: Start: 08-08-2024 Ct head/brain w/o co ntrast material Bella Cardenas BILLIARD PLAYER-COMPUTER SUPPORT ANALYST Work Phone: Start: 08-08-2024 Glucose measurement, blood Felicity Castellano MD Work Phone: Start: 08-08-2024 End: 08-08-2024 Glucose measurement, blood Felicity Castellano MD Work Phone: Start: 08-08-2024 Assay of magnesium Abram Mccoy BILLIARD PLAYER-COMPUTER SUPPORT ANALYST Work Phone: Start: 08-07-2024 Glucose measurement, blood Felicity Castellano MD Work Phone: Start: 08-07-2024 Glucose measurement, blood Felicity Castellano MD Work Phone: Start: 08-07-2024 Glucose measurement, blood Felicity Castellano MD Work Phone: Start: 08-07-2024 Glucose measurement, blood Felicity Castellano MD Work Phone: Start: 08-06-2024 Glucose measurement, blood Felicity Castellano MD Work Phone: Start: 08-06-2024 Assay of magnesium Nase rin M Nadine BILLIARD PLAYER-COMPUTER SUPPORT ANALYST Work Phone: Start: 08-06-2024 Glucose measurement, blood Felicity Castellano MD Work Phone: Start: 08-06-2024 Glucose measurement, blood Felicity Castellano MD Work Phone: Start: 08-06-2024 Radiologic exam swal low function contrast study Shanna Russ BILLIARD PLAYER-COMPUTER SUPPORT ANALYST Work Phone: Start: 08-06-2024 SPEECH MODIFIED KEAGAN UM SWALLOW Shanna Russ BILLIARD PLAYER-COMPUTER SUPPORT ANALYST Work Phone: Start: 08-06-2024 Glucose measurement, blood Felicity Castellano MD Work Phone: Start: 08-05-2024 Glucose measurement, blood Felicity Castellano MD Work Phone: Start: 08-05-2024 Assay of magnesium Nase rin M Nadine BILLIARD PLAYER-COMPUTER SUPPORT ANALYST Work Phone: Start: 08-05-2024 Glucose measurement, blood Felicity Castellano MD Work Phone: Start: 08-05-2024 Glucose measurement, blood Felicity Castellano MD Work Phone: Start: 08-05-2024 Echo tthrc r-t 2d w/wom-mode compl spec&colr d Taran Traore BILLIARD PLAYER-COMPUTER SUPPORT ANALYST Work Phone: Start: 08-05-2024 Glucose measurement, blood Felicity Castellano MD Work Phone: Start: 08-05-2024 Assay of magnesium Nase rin M Nadine BILLIARD PLAYER-COMPUTER SUPPORT ANALYST Work Phone: Start: 08-05-2024 Glucose measurement, blood [...] 08-04-2024 Assay of magnesium Abram Hwang Nadine BILLIARD PLAYER-COMPUTER SUPPORT ANALYST Work Phone: Start: 08-04-2024 Glucose measurement, blood Richard Mejia MD Work Phone: Start: 08-03-2024 Ct head/brain w/o co ntrast material Shaila Méndez PA-C Start: 08-03-2024 Sodium serum plasma or whole blood Shanna Denise MD Work Phone: Start: 08-03-2024 Glucose measurement, blood Richard Mejia MD Work Phone: Start: 08-03-2024 Radiologic exam abdo men 1 view Abdoulnohelia Jaiden Nadine BILLIARD PLAYER-COMPUTER SUPPORT ANALYST Work Phone: Start: 08-03-2024 Glucose measurement, blood [...] Mri brain brain stem w/o contrast material aTran Traore BILLIARD PLAYER-COMPUTER SUPPORT ANALYST Work Phone: Start: 08-03-2024 ABORH TYPE RECONFIRMATION Cindy CORDOVA Work Phone: Start: 08-03-2024 Assay of magnesium Abram Mccoy BILLIARD PLAYER-COMPUTER SUPPORT ANALYST Work Phone: Start: 08-02-2024 Glucose measurement, blood [...] #### X M #### [facility] [place] [address] Start: 08-02-2024 EXTRA MICRO Taran Traore BILLIARD PLAYER-COMPUTER SUPPORT ANALYST Work Phone: Start: 08-02-2024 Hemoglobin glycosylated a1c Balbir Mccoy BILLIARD PLAYER-COMPUTER SUPPORT ANALYST Work Phone: Start: 08-02-2024 Hepatic function panel Balbir Mccoy BILLIARD PLAYER-COMPUTER SUPPORT ANALYST Work Phone: Start: 08-02-2024 Iadna s aureus ampli fied probe tq Balbir Mccoy BILLIARD PLAYER-COMPUTER SUPPORT ANALYST Work Phone: Start: 08-02-2024 URINALYSIS REFLEX TO CULTURE Taran Traore BILLIARD PLAYER-COMPUTER SUPPORT ANALYST Work Phone: Start: 08-02-2024 Urnls dip stick/tabl et reagent auto microscopy Taran Traore BILLIARD PLAYER-COMPUTER SUPPORT ANALYST Work Phone: Start: 08-02-2024 SARS-CoV-2, Influenz a [...] Author Start: 08-15-2025 Complete blood count Hemoglobin/Hematocrit [facility] Start: 08-15-2025 Creatinine measurement Serum Creatinine [facility] Start: 08-02-2025 Thyroid stimulating hormone measurement [facility] Start: 06-26-2025 Annual PCP Team Chronic Disease Visit Annual PCP Team Chronic Disease Visit [facility] Start: 05-31-2025 Annual PCP Team Chronic Disease Visit Annual PCP Team Chronic Disease Visit [facility] Start: 05-31-2025 Covid-19 Vaccine () Covid-19 Vaccine () [facility] Comment on above: Postponed from 01/14/2024 (Declined at t his time) Start: 05-31-2025 Pneumococcal Vaccine: 50+ (2 of 2 - PPSV23) Pneumococcal Vaccine: 50+ (2 of 2 - PPSV23) [facility] Comment on above: Postponed from 12/19/2019 (Declined at t his time) Start: 05-23-2025 Creatinine measurement Serum Creatinine [facility] Start: 05-23-2025 Hepatitis B screening Urine Albumin:Creatinine Ratio [facility] Start: 05-23-2025 Hepatitis B surface antibody level LDL Cholesterol [facility] Start: 02-02-2025 [facility]oglobin A[facility]c [facility] Start: 01-13-2025 Influenza vaccination [facility] Start: 01-03-2025 Glaucoma screening Dilated Retinal Exam [facility] Start: 12-24-2024 End: 12-24-2024 Patient encounter procedure 12/24/2024 9:20 AM EDT Office Visit Family [facility] [address] [place] [address] Kameron Caruso MD [address] [place] [id number] 6 month follow up Family [facility] Comment on above: 6 month follow up Start: 11-28-2024 End: 02-27-2025 Comprehensive metabolic 2000 panel - Serum or Plasma COMPREHENSIVE METABOLIC PANEL Lab Routine Essential hypertension, benign Chronic kidney disease, stage 3a (HCC) Hyperlipidemia, unspecified hyperlipidemia type Expected: 11/28/2024 (Approximate), Expires: 02/27/2025 [facility] Work Phone: Comment on above: Expected: 11/28/2024 (Approximate), Expi res: 02/27/2025 Start: 11-28-2024 End: 02-27-2025 Hemoglobin A1c in Blood HEMOGLOBIN A1C Lab Routine Expected: 11/28/2024 (Approximate), Expires: 02/27/2025 [facility] Comment on above: Expected: 11/28/2024 (Approximate), Expi res: 02/27/2025 Start: 11-28-2024 End: 02-27-2025 Lipid 1996 panel - Serum or Plasma LIPID PANEL BASIC Lab Routine Essential hypertension, benign Hyperlipidemia, unspecified hyperlipidemia type Expected: 11/28/2024 (Approximate), Expires: 02/27/2025 [facility] Comment on above: Expected: 11/28/2024 (Approximate), Expi res: 02/27/2025 Start: 11-28-2024 End: 02-27-2025 Thyrotropin [Units/volume] in Serum or Plasma THYROID STIMULATING HORMONE Lab Routine Hypothyroidism, unspecified type Expected: 11/28/2024 (Approximate), Expires: 02/27/2025 [facility] Comment on above: Expected: 11/28/2024 (Approximate), Expi res: 02/27/2025 Start: 11-27-2024 Annual PCP Team Chronic Disease Visit Annual PCP Team Chronic Disease Visit [facility] Start: 11-27-2024 Anxiety Screening Anxiety Screening [facility] Start: 11-27-2024 Depression Screening Depression Screening [facility] Start: 11-27-2024 RSV Vaccine (1 - 1-dose 60+ series) RSV Vaccine (1 - 1-dose 60+ series) [facility] Comment on above: Postponed from 2004 (Declined at t his time) Start: 11-27-2024 RSV Vaccine (1 - 1-dose 75+ series) RSV Vaccine (1 - 1-dose 75+ series) [facility] Comment on above: Postponed from 10/26/2019 (Declined at t his time) Start: 11-26-2024 Creatinine measurement Serum Creatinine [facility] Start: 11-26-2024 Hepatitis B surface antibody level LDL Cholesterol [facility] Start: 11-20-2024 Hemoglobin A1c measurement HbA[facility]C [facility] Start: 11-11-2024 Influenza vaccination Influenza Vaccine (#1) [facility] Sarah jerez Comment on above: Postponed from 01/14/2024 (Declined at t his time) Start: 10-08-2024 End: 10-08-2024 ambulatory [facility] Start: 10-02-2024 Evaluation of diagnostic study results 12 Lead EKG performed by [facility] Start: 08-02-2024 [facility] Start: 08-02-2024 SARS-CoV-2, Influenza & RSV (PCR) SARS-CoV-2, Influenza & RSV (PCR) [facility] Start: 08-02-2024 End: 08-02-2024 [facility] Start: 08-02-2024 Electrocardiographic procedure [facility] Start: 08-02-2024 Oxygen therapy [facility] Start: 07-24-2024 End: 10-23-2024 Thyrotropin [Units/volume] in Serum or Plasma THYROID STIMULATING HORMONE Lab Routine Hypothyroidism, unspecified type Expected: 07/24/2024, Expires: 10/23/2024 [facility] Work Phone: Comment on above: Expected: 07/24/2024, Expires: 5 Start: 07-24-2024 End: 10-23-2024 Thyroxine (T4) free [Mass/volume] in Serum or Plasma T4 FREE/FREE THYROXINE Lab Routine Hypothyroidism, unspecified type Expected: 07/24/2024, Expires: 10/23/2024 [facility] Comment on above: Expected: 07/24/2024, Expires: 5 Start: 06-25-2024 End: 06-25-2024 Patient encounter procedure 06/25/2024 9:40 AM EST Office Visit [facility] [place] [address] [place] [id number] Kameron Caruso MD [address] [place] [id number] 1 mo f/u, new dx afib. [facility] [place] Comment on above: 1 mo f/u, new dx afib. Start: 06-11-2024 End: 06-11-2024 Patient encounter procedure 06/11/2024 8:50 AM EST Office Visit Cardiology [address] [place] [address] Atrial fibrillation, unspecified type (HCC) [I48.91] Cardiology Comment on above: Atrial fibrillation, unspecified type (H CC) [I48.91] Start: 05-30-2024 Annual PCP Team Chronic Disease Visit Annual PCP Team Chronic Disease Visit [facility] Start: 05-30-2024 End: 08-29-2024 Comprehensive metabolic 2000 panel - Serum or Plasma COMPREHENSIVE METABOLIC PANEL Lab Routine Type 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, unspecified CKD stage, unspecified whether senior care insulin use (HCC) Essential hypertension, benign Chronic kidney disease, stage 3a (HCC) Hyperlipidemia, unspecified hyperlipidemia type Expected: 05/30/2024 (Approximate), Expires: 08/29/2024 [facility] Work Phone: Comment on above: Expected: 05/30/2024 (Approximate), Expi res: 08/29/2024 Start: 05-30-2024 Covid-19 Vaccine () Covid-19 Vaccine () [facility] Comment on above: Postponed from 01/13/2023 (Declined at t his time) Start: 05-30-2024 End: 08-29-2024 Hemoglobin A1c in Blood HEMOGLOBIN A1C Lab Routine Type 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, unspecified CKD stage, unspecified whether senior care insulin use (HCC) Expected: 05/30/2024 (Approximate), Expires: 08/29/2024 [facility] Comment on above: Expected: 05/30/2024 (Approximate), Expi res: 08/29/2024 Start: 05-30-2024 Hepatitis C screening Hepatitis C Screening [facility] Comment on above: Postponed from 1962 (Declined at t his time) Start: 05-30-2024 End: 08-29-2024 Lipid 1996 panel - Serum or Plasma LIPID PANEL BASIC Lab Routine Type 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, unspecified CKD stage, unspecified whether senior care insulin use (HCC) Essential hypertension, benign Hyperlipidemia, unspecified hyperlipidemia type Expected: 05/30/2024 (Approximate), Expires: 08/29/2024 [facility] Comment on above: Expected: 05/30/2024 (Approximate), Expi res: 08/29/2024 Start: 05-30-2024 End: 08-29-2024 Microalbumin/Creatinine [Mass Ratio] in Urine ALBUMIN/CREATININE RATIO, URINE Lab Routine Type 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, unspecified CKD stage, unspecified whether long chain quiller tender insulin use (HCC) Expected: 05/30/2024 (Approximate), Expires: 08/29/2024 [facility] Comment on above: Expected: 05/30/2024 (Approximate), Expi res: 08/29/2024 Start: 05-30-2024 Pneumococcal Vaccine: 65+ (2 of 2 - PPSV23 or PCV20) Pneumococcal Vaccine: 65+ (2 of 2 - PPSV23 or PCV20) [facility] Comment on above: Postponed from 12/19/2019 (Declined at t his time) Start: 05-30-2024 End: 08-29-2024 Thyrotropin [Units/volume] in Serum or Plasma THYROID STIMULATING HORMONE Lab Routine Hypothyroidism, unspecified type Expected: 05/30/2024 (Approximate), Expires: 08/29/2024 [facility] Comment on above: Expected: 05/30/2024 (Approximate), Expi res: 08/29/2024 Start: 05-30-2024 End: 05-30-2024 Patient encounter procedure 05/30/2024 9:40 AM EST Office Visit [facility] [place] [facility] [address] [place] [address] Kameron Caruso MD [address] [place], [place] [id number] 6 mo f/u [facility] [place] [facility] Comment on above: 6 mo f/u Start: 05-29-2024 Hemoglobin A1c measurement HbA1C [facility] Start: 05-16-2024 Creatinine measurement Serum Creatinine [facility] Start: 05-16-2024 Hepatitis B screening Urine Albumin:Creatinine Ratio [facility] Start: 01-02-2025 Hepatitis B surface antibody level LDL Cholesterol [facility] Start: 05-15-2024 Advance Directive Discussion Advance Directive Discussion [facility] Start: 01-14-2024 Influenza vaccination [facility] Start: 01-14-2024 [facility] Start: 01-04-2024 Glaucoma screening Dilated Retinal Exam [facility] Start: 01-04-2024 Hepatitis C antibody, confirmatory test Dilated Retinal Exam [facility] Start: 11-28-2023 End: 11-28-2023 Patient encounter procedure 11/28/2023 9:40 AM EDT Office Visit Family [place] [facility] [address] [place] [phone] Kameron Caruso MD [address] [place], [place] [phone] 6 mo follow up [facility] [place] [facility] Comment on above: 6 mo follow up Start: 11-26-2023 ANNUAL PCP TEAM CHRONIC DISEASE VISIT ANNUAL PCP TEAM CHRONIC DISEASE VISIT [facility] Start: 11-26-2023 BP CONTROLLED (<130/80) BP CONTROLLED (<130/80) [facility] Start: 11-23-2023 Complete blood count Hemoglobin/Hematocrit [facility] Start: 11-23-2023 HEMOGLOBIN/HEMATOCRIT HEMOGLOBIN/HEMATOCRIT [facility] Start: 11-23-2023 Hepatitis B surface antibody level LDL CHOLESTEROL [facility] Start: 11-23-2023 SERUM CREATININE SERUM CREATININE [facility] Start: 11-14-2023 Hemoglobin A[facility]c [facility] Start: 05-27-2023 ANNUAL PCP TEAM CHRONIC DISEASE VISIT ANNUAL PCP TEAM CHRONIC DISEASE VISIT [facility] Start: 05-27-2023 COVID-19 VACCINE (2 - Booster for Alyssa series) COVID-19 VACCINE (2 - Booster for Alyssa series) [facility] Comment on above: Postponed from 09/17/2020 (Declined at t his time) Start: 05-27-2023 HEPATITIS C SCREENING HEPATITIS C SCREENING [facility] Comment on above: Postponed from 1962 (Declined at t his time) Start: 05-25-2023 Hemoglobin A1c/Hemoglobin.total in Blood HBA1C [facility] Start: 05-19-2023 HEMOGLOBIN/HEMATOCRIT HEMOGLOBIN/HEMATOCRIT [facility] Start: 05-19-2023 Hepatitis B surface antibody level LDL CHOLESTEROL [facility] Start: 05-19-2023 SERUM CREATININE SERUM CREATININE [facility] Start: 05-15-2023 Advance Directive Discussion Advance Directive Discussion [facility] Start: 05-15-2023 Behavioral Health Screening Behavioral Health Screening [facility] Start: 03-02-2023 ANNUAL PCP TEAM CHRONIC DISEASE VISIT ANNUAL PCP TEAM CHRONIC DISEASE VISIT [facility] Start: 01-13-2023 Covid-19 Vaccine () Covid-19 Vaccine () [facility] Start: 01-13-2023 Influenza vaccination [facility] Start: 12-27-2022 Hepatitis C antibody, confirmatory test DILATED RETINAL EXAM [facility] Start: 11-24-2022 End: 01-24-2023 CBC panel - Blood by Automated count CBC Lab Routine Essential hypertension, benign Hypothyroidism, unspecified type Expected: 11/24/2022 (Approximate), Expires: 01/24/2023 [facility] Work Phone: Comment on above: Expected: 11/24/2022 (Approximate), Expi res: 01/24/2023 Start: 11-24-2022 End: 01-24-2023 Comprehensive metabolic 2000 panel - Serum or Plasma COMP METABOLIC PANEL Lab Routine Essential hypertension, benign Type 2 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, without long-term current use of insulin (HCC) Hyperlipidemia, unspecified hyperlipidemia type Expected: 11/24/2022 (Approximate), Expires: 01/24/2023 [facility] Work Phone: Comment on above: Expected: 11/24/2022 (Approximate), Expi res: 01/24/2023 Start: 11-24-2022 End: 01-24-2023 Hemoglobin A1c in Blood HGB A1C Lab Routine Type 2 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, without long-term current use of insulin (HCC) Expected: 11/24/2022 (Approximate), Expires: 01/24/2023 [facility] Work Phone: Comment on above: Expected: 11/24/2022 (Approximate), Expi res: 01/24/2023 Start: 11-24-2022 End: 01-24-2023 Lipid 1996 panel - Serum or Plasma LIPID PANEL BASIC Lab Routine Essential hypertension, benign Type 2 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, without long-term current use of insulin (HCC) Hyperlipidemia, unspecified hyperlipidemia type Expected: 11/24/2022 (Approximate), Expires: 01/24/2023 [facility] Work Phone: Comment on above: Expected: 11/24/2022 (Approximate), Expi res: 01/24/2023 Start: 11-24-2022 End: 01-24-2023 Thyrotropin [Units/volume] in Serum or Plasma TSH BLD Lab Routine Hypothyroidism, unspecified type Expected: 11/24/2022 (Approximate), Expires: 01/24/2023 [facility] Work Phone: Comment on above: Expected: 11/24/2022 (Approximate), Expi res: 01/24/2023 Start: 11-23-2022 3 comp foot exam completed DIABETIC FOOT EXAM [facility] Start: 11-23-2022 ANNUAL PCP TEAM CHRONIC DISEASE VISIT ANNUAL PCP TEAM CHRONIC DISEASE VISIT [facility] Start: 11-23-2022 Diabetic foot examination Diabetic Foot Exam [facility] Start: 11-20-2022 Hepatitis B screening URINE ALBUMIN:CREATININE RATIO [facility] Start: 11-20-2022 Hepatitis B surface antibody level LDL CHOLESTEROL [facility] Start: 11-20-2022 SERUM CREATININE SERUM CREATININE [facility] Start: 11-16-2022 Hemoglobin A1c/Hemoglobin.total in Blood HBA1C [facility] Start: 11-11-2022 Influenza vaccination INFLUENZA (#1) [facility] Comment on above: Postponed from 01/13/2022 (Declined at t his time) Start: 05-26-2022 End: 07-26-2022 CBC panel - Blood by Automated count CBC Lab Routine Essential hypertension, benign Stage 3b chronic kidney disease (HCC) Expected: 05/26/2022 (Approximate), Expires: 07/26/2022 [facility] Work Phone: Comment on above: Expected: 05/26/2022 (Approximate), Expi res: 07/26/2022 Start: 05-26-2022 End: 07-26-2022 Comprehensive metabolic 2000 panel - Serum or Plasma COMP METABOLIC PANEL Lab Routine Type 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, unspecified CKD stage, unspecified whether long chain quiller tender insulin use (HCC) Essential hypertension, benign Hyperlipidemia, unspecified hyperlipidemia type Stage 3b chronic kidney disease (HCC) Expected: 05/26/2022 (Approximate), Expires: 07/26/2022 [facility] Work Phone: Comment on above: Expected: 05/26/2022 (Approximate), Expi res: 07/26/2022 Start: 05-26-2022 End: 07-26-2022 Hemoglobin A1c in Blood HGB A1C Lab Routine Type 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, unspecified CKD stage, unspecified whether long chain quiller tender insulin use (HCC) Expected: 05/26/2022 (Approximate), Expires: 07/26/2022 [facility] Work Phone: Comment on above: Expected: 05/26/2022 (Approximate), Expi res: 07/26/2022 Start: 05-26-2022 End: 07-26-2022 Lipid 1996 panel - Serum or Plasma LIPID PANEL BASIC Lab Routine Essential hypertension, benign Hyperlipidemia, unspecified hyperlipidemia type Expected: 05/26/2022 (Approximate), Expires: 07/26/2022 [facility] Work Phone: Comment on above: Expected: 05/26/2022 (Approximate), Expi res: 07/26/2022 Start: 05-26-2022 End: 07-26-2022 Thyrotropin [Units/volume] in Serum or Plasma TSH BLD Lab Routine Hypothyroidism, unspecified type Expected: 05/26/2022 (Approximate), Expires: 07/26/2022 [facility] Work Phone: Comment on above: Expected: 05/26/2022 (Approximate), Expi res: 07/26/2022 Start: 05-23-2022 Hemoglobin A1c/Hemoglobin.total in Blood HBA1C [facility] Start: 05-18-2022 ANNUAL PCP TEAM CHRONIC DISEASE VISIT ANNUAL PCP TEAM CHRONIC DISEASE VISIT [facility] Start: 05-17-2022 Hepatitis B surface antibody level LDL CHOLESTEROL [facility] Start: 05-17-2022 SERUM CREATININE SERUM CREATININE [facility] Start: 05-15-2022 ADVANCE DIRECTIVE DISCUSSION ADVANCE DIRECTIVE DISCUSSION [facility] Start: 01-13-2022 Influenza vaccination [facility] Start: 01-11-2022 Hepatitis C antibody, confirmatory test DILATED RETINAL EXAM [facility] Start: 11-14-2021 Hemoglobin A1c/Hemoglobin.total in Blood HBA1C [facility] Start: 11-06-2021 Screening for malignant neoplasm of breast [facility] Start: 11-05-2021 3 comp foot exam completed DIABETIC FOOT EXAM [facility] Start: 11-05-2021 Adult depression screening assessment DEPRESSION SCREENING [facility] Start: 11-04-2021 Hepatitis B screening URINE ALBUMIN:CREATININE RATIO [facility] Start: 10-15-2021 Hepa vaccine adult dose for intramuscular use HEPATITIS A VACCINE ADULT IM Immunization/Injection Routine Need for vaccination Expected: 10/15/2021 [facility] Work Phone: Comment on above: Expected: 10/15/2021 Start: 10-15-2021 Tdap vaccine 7 yrs/> im TDAP VACCINE AGE 7+ IM Immunization/Injection Routine Need for vaccination Expected: 10/15/2021 [facility] Work Phone: Comment on above: Expected: 10/15/2021 Start: 05-15-2021 ADVANCE DIRECTIVE DISCUSSION ADVANCE DIRECTIVE DISCUSSION [facility] Start: 05-15-2021 DEPRESSION ASSESSMENT DEPRESSION ASSESSMENT [facility] Start: 10-23-2020 PNEUMOCOCCAL: 65+ (2 - PPSV23 if available, else PCV20) PNEUMOCOCCAL: 65+ (2 - PPSV23 if available, else PCV20) [facility] Start: 10-23-2020 PNEUMOCOCCAL: 65+ (2 - PPSV23 or PCV20) PNEUMOCOCCAL: 65+ (2 - PPSV23 or PCV20) [facility] Start: 10-16-2020 HEMOGLOBIN/HEMATOCRIT HEMOGLOBIN/HEMATOCRIT [facility] Start: 09-17-2020 COVID-19 VACCINE (2 - Booster for Alyssa series) COVID-19 VACCINE (2 - Booster for Alyssa series) [facility] Start: 12-19-2019 Pneumococcal vaccination [facility] Start: 12-19-2019 Pneumococcal Vaccine: 65+ (2 - PPSV23 or PCV20) Pneumococcal Vaccine: 65+ (2 - PPSV23 or PCV20) [facility] Start: 12-19-2019 PNEUMOCOCCAL: 65+ (2 - PPSV23 or PCV20) PNEUMOCOCCAL: 65+ (2 - PPSV23 or PCV20) [facility] Start: 11-08-2019 Screening for malignant neoplasm of colon [facility] Start: 10-26-2019 [facility] Start: 01-13-2019 Influenza vaccination Flu vaccine (#1) [place], [place] Start: 12-23-2018 Annual Wellness Visit (AWV) Annual Wellness Visit (AWV) [place] Start: 2009 DEXA (modify frequency per FRAX score) DEXA (modify frequency per FRAX score) [place] Start: 2009 Pneumococcal 65+ years Vaccine (1 of 1 - PPSV23) Pneumococcal 65+ years Vaccine (1 of 1 - PPSV23) [place] Start: 2009 Pneumococcal 65+ years Vaccine (1 of 2 - PCV13) Pneumococcal 65+ years Vaccine (1 of 2 - PCV13) [place] Start: 10-26-2007 Annual Wellness Visit (AWV) Annual Wellness Visit (AWV) [place] Start: 2004 Hepatitis B Vaccine (1 of 3 - Risk 3-dose series) Hepatitis B Vaccine (1 of 3 - Risk 3-dose series) [facility] Start: 2004 RSV Vaccine (1 - 1-dose 60+ series) RSV Vaccine (1 - 1-dose 60+ series) [facility] Start: 10-26-1999 Screening for osteoporosis DEXA (modify frequency per FRAX score) [place] Start: 1994 Breast cancer screen Breast cancer screen [place], [place] Start: 1994 Colon cancer screen colonoscopy Colon cancer screen colonoscopy [place] Start: 1994 Screening for malignant neoplasm of breast Breast cancer screen [place], [place] Start: 1994 Screening for malignant neoplasm of colon Colon cancer screen colonoscopy [place] Start: 1994 Shingles Vaccine (1 of 2) Shingles Vaccine (1 of 2) [place] Start: 1984 Lipid screen Lipid screen [place] Start: 1965 Screening for malignant neoplasm of cervix [facility] Start: 10-26-1963 DTaP/Tdap/Td vaccine (1 - Tdap) DTaP/Tdap/Td vaccine (1 - Tdap) [place] Start: 10-26-1963 Third diphtheria, tetanus and acellular pertussis (DTaP) vaccination [facility] Start: 10-26-1963 Urine microalbumin profile [facility] Start: 1962 BP CONTROLLED (<130/80) BP CONTROLLED (<130/80) [facility] Start: 1962 HEPATITIS C SCREENING HEPATITIS C SCREENING [facility] Start: 1954 Lipid panel Lipid screen [place], [place] Start: 1944 Creatinine measurement Creatinine monitoring [place], [place] Start: 1944 Creatinine monitoring Creatinine monitoring [place], [place] Start: 1944 Hepatitis C screen Hepatitis C screen [place] Start: 1944 Hepatitis C screening [facility] Start: 1944 Potassium monitoring Potassium monitoring [place], [place] Start: 1944 Screening for osteoporosis [facility] Start: 1944 Tetanus vaccination [facility] End: 01-09-2019 Blood glucose - POCT Blood glucose - POCT Point of Care Testing Routine One Time for 1 Occurrences starting 01/09/2019 until 01/09/2019 [place] Comment on above: One Time for 1 Occurrences starting 12/14 until 01/09/2019 ECG COMPLETE [facility] Comment on above: Ordered: 05/31/2024 End: 05-31-2025 Echocardiography ECHO Cardiology Routine Atrial fibrillation, unspecified type (HCC) 1 Occurrences starting 05/31/2024 until 05/31/2025 [facility] Comment on above: 1 Occurrences starting 05/31/2024 until 05/31/2025 Patient referral [facility] Work Phone: End: 01-09-2019 Pulse Oximetry Spot Check Pulse Oximetry Spot Check Respiratory Care Routine One Time for 1 Occurrences starting 01/09/2019 until 01/09/2019 [facility] [place] Comment on above: One Time for 1 Occurrences starting 12/14 until 01/09/2019 End: 08-02-2024 PV FLUOROSCOPY OR [facility] End: 08-02-2024 Standard ECG [facility] Immunizations Immunization Date Immunization Notes Care Provider Fa sonya 07-23-2020 SARS-CoV-2 (COVID-19 ) Ad26 vaccine, recombinant SILVINO HA DO [employer] Comment on above: Result Comment: 2024: [id number] 02-27-2020 influenza, high dose seasonal, preservative-free Kameron Caruso MD Work Phone: [facility] 02-27-2020 influenza virus vaccine, unspecified formulation Kameron Caruso MD Work Phone: [facility] 10-24-2019 pneumococcal conjuga te vaccine, 13 valent Kameron Caruso MD Work Phone: [facility] 10-24-2019 zoster vaccine recombinant Kameron Caruso MD Work Phone: [facility] 07-25-2019 influenza virus vaccine, unspecified formulation SILVINO HA DO [employer] 07-25-2019 influenza, seasonal, injectable Kameron Caruso MD Work Phone: [facility] 07-25-2019 zoster vaccine recombinant Kameron Caruso MD Work Phone: [facility] 04-13-2015 influenza virus vaccine, unspecified formulation SILVINO SCHEBEULAH DO [facility] 05-01-2014 influenza virus vaccine, unspecified formulation SILVINO SCHEBEULAH DO [facility] 05-01-2014 influenza, high dose seasonal, preservative-free Kameron Caruso MD Work Phone: [facility] 02-22-2012 influenza virus vaccine, unspecified formulation Kameron Caruso MD Work Phone: [facility] Work Phone: 03-19-2007 influenza virus vaccine, unspecified formulation Kameron Caruso MD Work Phone: [facility] Work Phone: Payers Date Payer Category Payer Medicare [id number] 2024 Unknown [id number] 2024 Self-pay 2018 Medicare [employer] RE ADVANTAGE [facility]-MEDICARE ADVANTAGE xxxxxxxxxxx 2018-Present [phone] [address] [place] [address] xxxxxxxxxxx [id number] 2018 Unknown [id number] 2013 Medicare [employer] [place] [id number] 2013-Present [phone] [address] [place] [address] [facility] [id number] 2013 Medicare [id number] 2013 Medicare (Managed Care) 1.2. [id number] 2013 Medicare [id number] 1944 Unknown [id number] 2.16.840.1.151616.3.579.2 .627 1944 Unknown [id number] 2.16.840.1.858171.3.579.2 .732 1944 Unknown [id number] 2.16.840.1.221494.3.579.2 .627 1944 Unknown [id number] 2.16.840.1.813200.3.579.2 .594 1944 Unknown [id number] 2.16.840.1.663324.3.579.2 .594 Unknown [id number] 2.16.840.1.053612.3.579.2 .462 Unknown [id number] 2.16.840.1.192317.3.579.2 .462 Unknown [id number] 2.16.840.1.914523.3.579.2 .462 Unknown [id number] 2.16.840.1.303409.3.579.2 .462 Unknown [id number] 2.16.840.1.521592.3.579.2 .462 Unknown [id number] 2.16.840.1.105100.3.579.2 .462 Unknown [id number] 2.16.840.1.698847.3.579.2 .462 Unknown [id number] 2.16.840.1.099071.3.579.2 .462 Unknown [id number] 2.16.840.1.560160.3.579.2 .462 Unknown [id number] 2.16.840.1.791410.3.579.2 .462 Unknown [id number] 2.16.840.1.861442.3.579.2 .462 Unknown [id number] 2.16.840.1.832266.3.579.2 .462 Unknown [id number] 2.16.840.1.154592.3.579.2 .462 Unknown [id number] 2.16.840.1.404289.3.579.2 .462 Unknown [id number] 2.16.840.1.768157.3.579.2 .462 Unknown [id number] 2.16.840.1.464962.3.579.2 .462 Unknown [id number] 2.16.840.1.866927.3.579.2 .462 Unknown [id number] 2.16.840.1.266812.3.579.2 .462 Unknown [id number] 2.16.840.1.778375.3.579.2 .462 Unknown [id number] 2.16.840.1.851062.3.579.2 .462 Unknown [id number] 2.16.840.1.382161.3.579.2 .462 Unknown [id number] 2.16.840.1.237084.3.579.2 .462 Unknown [id number] 2.16.840.1.203503.3.579.2 .462 Unknown [id number] 2.16.840.1.326889.3.579.2 .462 Unknown [id number] 2.16.840.1.535289.3.579.2 .462 Unknown [id number] 2.16.840.1.187713.3.579.2 .462 Unknown [id number] 2.16.840.1.725384.3.579.2 .462 Unknown [id number] 2.16.840.1.147090.3.579.2 .462 Unknown [id number] 2.16.840.1.908415.3.579.2 .462 Social History Date Type Detail Facility Start: 01-09-2019 End: 08-02-2024 Tobacco smoking status [facility] Never smoker [facility] Start: 01-09-2019 End: 11-25-2022 Alcohol intake Never [facility] Work Phone: Start: 12-24-2018 History SDOH Alcohol Frequency 1 [place], [place] Start: 1945 Sex Assigned At Not on file [place] Start: 10-16-2019 Alcohol intake Lifetime non-d hortencia (finding) [place] Exposure to SARS-CoV -2 (event) Unable to assess [place] Start: 05-18-2021 End: 06-26-2024 Alcohol intake Current non-drinker of alcohol (finding) [facility] Start: 11-13-2021 End: 03-02-2022 Exposure to SARS-CoV-2 (event) Not sure [facility] Start: 02-02-2011 End: 03-02-2022 Tobacco use and exposure Smokeless tobacco non-user [facility] Start: 11-25-2022 End: 11-28-2023 History of Social function [facility] Work Phone: Adult Depression Screening Assessment 0 [facility] Work Phone: Start: 06-22-2005 End: 08-02-2024 Sex Female (finding) [facility] Start: 1945 Sex Assigned At Female W [facility] Sexual Orientation [facility] Medical Equipment Procedure Code Equipment Code Equipment Original Text Equipment Identifier Dates [id number], [id number], [id number] Start: 11-30-2020 End: 04-08-2023 Comment on above: [...] Facility 09-09-2024 Functional Status Room check performed [facility] 09-09-2024 Functional Status [facility] 09-09-2024 Functional Status Skin Care Prev entative Intervention(s) heel(s)s elevated [facility] 09-08-2024 Functional Status [facility] 09-08-2024 Functional Status [facility] 09-06-2024 Functional Status 11pm-7am [facility] 09-06-2024 Functional Status Antiembolism S tocking On/Re-applied bilateral knee high [facility] 09-05-2024 Functional Status Oral Care Maximum wilfred cho [facility] 09-05-2024 Functional Status [facility] 09-05-2024 Functional Status Done [facility] 09-04-2024 Functional Status [facility] 09-04-2024 Functional Status [facility] 09-03-2024 Functional Status NPO Status Maintained A [facility] 09-03-2024 Functional Status None [facility] 09-03-2024 Functional Status [facility] 08-29-2024 Functional Status [facility] 08-29-2024 Functional Status [facility] 08-27-2024 Functional Status Orthotics, Dev ice Worn Per Schedule Yes [facility] 08-27-2024 Functional Status [facility] 08-26-2024 Functional Status [facility] [facility] 08-23-2024 Functional Status [facility] 08-23-2024 Functional Status Breakfast Percent 25 [facility] 08-20-2024 Functional Status [facility] 08-19-2024 Functional Status [facility] 08-16-2024 Functional Status Single level h ome, basement laundry [facility] 08-16-2024 Functional Status Outside Stairs Rail Rail on left going up [facility] 08-15-2024 Functional Status Sensory Defici ts Speech deficit [facility] 10-14-2014 Are you deaf, or do you have serious difficulty hearing No [facility] 10-14-2014 Are you blind, or do you have serious difficulty seeing, even when wearing glasses No [facility] 10-14-2014 Do you have serious difficulty walking or climbing stairs No [facility] 10-14-2014 Do you have difficul ty dressing or bathing No [facility] 10-14-2014 Because of a physica l, mental, or emotional condition, do you have difficulty doing errands alone such as visiting a physician's office or shopping No [facility] Mental Status Date Assessment Result Facility 09-09-2024 Mental Status Does not interact [facility] 09-08-2024 Mental Status [facility] 09-08-2024 Mental Status [facility] 08-02-2024 Cognitive function Awake;Alert;F ollows Commands [facility] Work Phone: 10-14-2014 Because of a physica l, mental, or emotional condition, do you have serious difficulty concentrating, remembering, or making decisions No [facility] Clinical Notes 11-03-2020 to 10-02-2024 Note Date & Type Note Facility 10-02-2024 Evaluation note Diagnosis Onset Date Resolution Acute ischemic right MCA stroke acute October 02, 2024 9:29am Essential hypertension acute 2024 9:29am Hyperlipidemia acute October 02, 2024 9:29am Paroxysmal atrial fibrillation with RVR acute October 02, 2024 9:29am [facility] ([email or web address]) Work Phone: [phone] [phone] Note Discharge Instructions Thank you for allowing [...] KAMERON CARUSO MD When:Within 3-7 days Where:[address] [place] [address]- Additional Information: Please schedule follow up PCP appointment for after discharge from SNF, Bring discharge instructions with you Follow Up with RIMMA POWERS MD When:10/08/2024 04:00 PM EDT Where:[facility] ([address], [place]) Additional Information: Neurosurgeon The Following Activity and [...] standard right Seat cushion, 99 month(s), Tyler [id number], 09/02/24 8:22:00 EDT Transfer of Care Wound [...] depending on your insurance coverage. Check with your[employer] company about what is covered. Keeping follow-up [...] 08/04/2017 Document Revised: 05/04/2018 Document Reviewed: 08/04/2017 [employer] Patient Education 2020 [employer] Additional Information VACCINATE! IT SAVES LIVES! Members of the community who have not yet received the COVID-19 vaccine and would like to receive it can visit one of [facility] vaccine clinics. There are many vaccine clinic locations within the [facility]. For locations and available times, please visit [email or web address]/. It is important to note that some COVID mobile vaccine clinics are held outdoors and may be canceled in rainy or stormy conditions. To learn more about pediatric vaccinations (ages 5-11), we invite you to visit the [facility] webpage. [email or web address]/[email or web address] [email or web address] learn more about the COVID-19 vaccine, we invite you to visit the CDC website for a list of frequently asked questions.https://www.cdc.gov/coronavirus/2019-ncov/vaccines/faq.html [facility] Patient Portal Access Instructions: Stay connected with your healthcare team and access your personal medical information anytime with the [facility] Patient Portal. Please follow the directions below to create your [facility] account: 1.Access the email account you provided upon registration to the hospital/physician office.2.Look for an invitation email from [facility].3.Open the email and access the invitation link: AcceptInvitation to [facility].4.Fill in the required richards to create your account. To access your account, visit [email or web address]. Click the blue button labeled "Access Patient [...] who you will allowto register on the [facility] Patient Portal for access to your information. You can also access the [facility] Patient Portal on the [facility] dahlia. Simply click on "Patient Portal" and then log into your account. If you would like to receive a full copy of your medical records, please contact the [facility] Medical Records Department by calling [phone], Monday through Monday between 8 a.m. and [...] Call your local pharmacy or go to [email or web address] to find one close to you.3.Make use of household items: Use cat litter or old coffee grounds to dispose medications if other options arenot available. Mix your drugs with these household products, seal them in an airtight container andthrow it into the garbage. Call [facility]: [phone] to be sure your drugs can be [...] aware that I should contact my doctor. Patient/Musical Instrument Supervisor Signature: Date/Time: Relationship to Patient: Witness Name/Signature: Date/Time: Tyler [id number] Note Discharge Instructions Thank you for allowing [...] KAMERON CARUSO MD When:Within 3-7 days Where:[address] [place] [address]- Additional Information: Please schedule follow up PCP appointment for after discharge from SNF, Bring discharge instructions with you Follow Up with RIMMA POWERS MD When:10/08/2024 04:00 PM EDT Where:[facility] ([address], [place]) Additional Information: Neurosurgeon The Following Activity and [...] standard right Seat cushion, 99 month(s), Tyler [id number], 09/02/24 8:22:00 EDT Transfer of Care Wound [...] depending on your insurance coverage. Check with your[employer] company about what is covered. Keeping follow-up [...] right away. Call your local emergency services (721 in the [place] Do not drive yourself [...] 08/04/2017 Document Revised: 05/04/2018 Document Reviewed: 08/04/2017 [employer] Patient Education 2020 [employer]. Additional Information VACCINATE! IT SAVES LIVES! Members of the community who have not yet received the COVID-19 vaccine and would like to receive it can visit one of [facility] vaccine clinics. There are many vaccine clinic locations within the [facility]. For locations and available times, please visit [email or web address]/. It is important to note that some COVID mobile vaccine clinics are held outdoors and may be canceled in rainy or stormy conditions. To learn more about pediatric vaccinations (ages 5-11), we invite you to visit the [facility] webpage. [email or web address]/[email or web address]-[email or web address] [email or web address].htmlTo learn more about the COVID-19 vaccine, we invite you to visit the CDC website for a list of frequently asked questions.https://www.cdc.gov/coronavirus/2019-ncov/vaccines/faq.html [facility] Patient Portal Access Instructions: Stay connected with your healthcare team and access your personal medical information anytime with the [facility] Patient Portal. Please follow the directions below to create your [facility] account: 1.Access the email account you provided upon registration to the hospital/physician office.2.Look for an invitation email from [facility].3.Open the email and access the invitation link: AcceptInvitation to [facility].4.Fill in the required richards to create your account. To access your account, visit [email or web address]. Click the blue button labeled "Access Patient [...] who you will allowto register on the [facility] Patient Portal for access to your information. You can also access the [facility] Patient Portal on the [facility] dahlia. Simply click on "Patient Portal" and then log into your account. If you would like to receive a full copy of your medical records, please contact the [facility] Medical Records Department by calling [phone], Monday through Monday between 8 a.m. and [...] Call your local pharmacy or go to [email or web address] to find one close to you.3.Make use of household items: Use cat litter or old coffee grounds to dispose medications if other options arenot available. Mix your drugs with these household products, seal them in an airtight container andthrow it into the garbage. Call [facility]: [phone] to be sure your drugs can be [...] aware that I should contact my doctor. Patient/Musical Instrument Supervisor Signature: Date/Time: Relationship to Patient: Witness Name/Signature: Date/Time: Tyler [id number] Physical medicine and rehab Discharge summary Date [...] in discharge valuation. She was admitted to [facility] from [facility] stay 08/02 - 08/15 who has a history of CAD, DM2, atrial fibrillation and hypertension whopresented to the ER after noting left-sided weakness and slurred speech. Originally presented to [facility] where CT head was obtained showing no [...] self-care assistance needs decision made to request nursing home facility. Approval is requested. Patient was [...] Ordered -- 08/15/24 17:18:00 EDT, AMI HEATON APRN-COMPUTER SUPPORT ANALYST, [facility] per policy Physical Exam Vitals [...] oral tablet)1 tab(s) PEG tube every day. Microgram PEG tube once a day. metoprolol [...] KAMERON CARUSO MD When:Within 3-7 days Where:[address] [place] [address]- Additional Information: Please schedule follow up PCP appointment for after discharge from SNF, Bring discharge instructions with you Follow Up with RIMMA POWERS MD When:10/08/2024 04:00 PM EDT Where:[facility] ([address], [place]) Additional Information: Neurosurgeon Follow Up Appointments No qualifying data available. Follow Up Labs/Studies Discharge Labs No Follow-up Labs Discharge Studies No Follow-up Studies Discharge Diet No qualifying data available. Discharge Activity No qualifying data available. Condition on Discharge Stable Discharge Disposition long-term facility Information Provided To Patient and family Time Spent Greater than 35 minutes Digitally Signed by SILVINO HA DO on 09/09/2024 01:46 PM [facility] [id number] Nurse Progress note Nursing GG Entered On: 09/09/2024 10:55 EDT Performed On: 09/09/2024 10:55 EDT by Abigail Rodas RN Nursing GG's OT GG Grid Eating : Not Completed Abigail Rodas RN - 09/09/2024 10:55 EDT Digitally Signed by Abigail Rodas RN on 09/09/2024 10:55 AM [facility] [id number] Nurse Progress note Nursing GG Entered On: 09/08/2024 17:39 EDT Performed On: 09/08/2024 17:39 EDT by Rob Alarcon RN Nursing GG's OT GG Grid Eating : Not Completed Oral Hygiene : Not Completed Toilet Hygiene : Substantial/Maximal Assistance Toilet Transfer : Substantial/Maximal Assistance Rob Alarcon RN - 09/08/2024 17:39 EDT Digitally Signed by Rob Alarcon RN on 09/08/2024 05:39 PM Tyler [id number] Nurse Progress note Pt had 250ml residual, 12:30pm bolus was held! Digitally Signed by Rob Alarcon RN on 09/08/2024 12:47 PM [facility] GarciaBfrnmbmj69-40-1135 Physical medicine and rehab Progress note Rehab [...] and slurred speech. She originally presented to [facility] with CT of the head was obtained showed no acute hemorrhage or large territory stroke. CTA showed mid right M1 occlusion however patient was not a TNK candidate. She was then transferred to a [facility] for further management. CT of head [...] Rate64(SEP 05 16:46)64(SEP 05 16:46)85(SEP 05 09:40) VTE404(SEP 05 16:36)138(SEP 05 16:36)H 158(SEP 05 09:52) [...] and in the presence of Dr. Dae Ramírez D.O., D.O. , personally performed the services described in this documentation, as described by Emma Grover RN in my presence and it is both accurate and complete Digitally Signed by SILIVNO HA DO on 09/06/2024 12:34 PM [facility] [id number] Hospital Discharge instructions Patient Education 09/05/2024 14:15:00 [...] depending on your insurance coverage. Check with your[employer] company about what is covered. Keeping follow-up [...] 08/04/2017 Document Revised: 05/04/2018 Document Reviewed: 08/04/2017 [employer] Patient Education 2020 [employer]. Follow Up Care 08/15/2024 08:51:25 With:RIMMA POWERS MD Address: [facility] ([address], [place]) When:10/08/2024 16:00:00 Comments:Neurosurgeon With:JONNIE BANSAL MD Address: [facility] When: Unknown Comments:GI, No appointment needed until PEG is ready to be removed or concerns arise With:KAMERON CARUSO MD Address: [address] [place] [address]- When:3-7 days Comments:Please schedule follow up PCP [...] less than 3 seconds. Ongoing hemiparesis VITALS RovzixLnmjMCNipgvIQFkS1OXM3UqqcXf(kg) 09/05 09:5236.3--516297HA 09/05 09:40----85----RA 09/04 23:3236.6--773979FM 09/04 21:2436.5--226276PC 09/04 16:01----72----RA 24 Hr Tmax: 36.6 at [...] tab(s), PEG, Daily, 08/15/24 17:09:00 EDT balsam [place]-castor oil topical (Venelex 788 mg-87 mg/g topical [...] SBP (mmHg) < 110, 1st dose location: [facility], 1, 08/15/24 17:09:00 EDT Active PRN [...] 2 minutes, REPEAT x1., 1st dose location: [facility], 0, 08/15/24 1... glucose (Dextrose 50% [...] None Problems (6) CVA (cerebral vascular accident) (779851036) Diabetes mellitus (152536323) Dysphagia (91517016) Hyperlipidemia (45975997) Hypertension (2072681062) Osteoarthritis (7697792259) ASSESSMENT/PLAN: Right basal ganglia hemorrhage, status post thrombectomy with revascularization follow-up appointment with neurosurgery on 10/08. Continue work with physical and Occupational Therapy with goal to return home at discharge. reports that referrals have been sent to nursing home facilities yesterday. Currently has 4 options [...] the services described in this documentation, as scribedbyDestinyjtasik RN in my presence and it is both accurate and complete. Digitally Signed by CATHERINE NEWMAN on 09/05/2024 04:55 PM [facility] GarciaJzkbcmtk13-66-1064 Physical medicine and rehab Progress note Subjective [...] area Neuro: Left upper extremity hemiparesis VITALS WpulvqBxznFVSnrpePSXxN2VSC8RtiaBi(kg) 09/04 23:3236.6--497693JW 09/04 21:2436.5--121221WI 09/04 16:01----72----RA 09/04 12:10--------97RA 09/04 10:5435.9--460531KP 24 Hr Tmax: 36.6 at 09/04 23:32 [...] None Problems (6) CVA (cerebral vascular accident) (060557373) Diabetes mellitus (274620761) Dysphagia (60266453) Hyperlipidemia (72304634) Hypertension (4566044607) Osteoarthritis (3342925421) ASSESSMENT/PLAN: Acute right basal ganglia hemorrhage with [...] NANDO HUTTON DO on 09/05/2024 10:12 AM [facility]8106 Physical medicine and rehab Progress note Rehab [...] and slurred speech. She originally presented to [facility] with CT of the head was obtained showed no acute hemorrhage or large territory stroke. CTA showed mid right M1 occlusion however patient was not a TNK candidate. She was then transferred to a [facility] for further management. CT of head [...] Rate64(SEP 03 15:52)64(SEP 03 15:52)90(SEP 03 08:28) UKN177(SEP 04 05:38)112(SEP 04 05:38)127(SEP 03 08:00) DBP70(SEP [...] SILVINO HA DO on 09/04/2024 11:55 AM Tyleranny DyeTguevfrc92-46-0591 Note Subjective Patient states she is doing [...] area Neuro: Left upper extremity hemiparesis VITALS NebxbqFlxsQLCluoyOEBnZ2FFI3LbieMy(kg) 09/03 21:4136.4--605851ZY 09/03 15:52----64---- 09/03 08:46 09/03 08:28----90---- 09/03 08:0036.4--851274IR 24 Hr Tmax: 36.4 at 09/03 21:41 [...] tab(s), PEG, Daily, 08/15/24 17:09:00 EDT balsam [place]-castor oil topical (Venelex 788 mg-87 mg/g topical [...] None Problems (6) CVA (cerebral vascular accident) (709175755) Diabetes mellitus (545109437) Dysphagia (34016139) Hyperlipidemia (61121251) Hypertension (6288631887) Osteoarthritis (7046469614) ASSESSMENT/PLAN: Acute right basal ganglia hemorrhage with [...] NANDO HUTTON DO on 09/05/2024 08:57 AM [facility]Bymyyhox67-13-1718 Note Subjective Patient states that she is [...] area Neuro: Left upper extremity hemiparesis VITALS MypfcgXwfsAJRhkvgVWTbR0DRJ7FceqWd(kg) 09/03 00:2636.3--998544LK 09/02 21:5136.2--467378LL 09/02 16:56----88--98RA 09/02 10:40 RA 09/02 09:0936.0--956463PJ 24 Hr Tmax: 37.0 at 09/02 05:55 [...] 2 minutes, REPEAT x1., 1st dose [facility]: [facility], 0, 08/15/24 1... glucose (Dextrose 50% IV [...] None Problems (6) CVA (cerebral vascular accident) (436531523) Diabetes mellitus (528489074) Dysphagia (61819520) Hyperlipidemia (62158258) Hypertension (0737402714) Osteoarthritis (2628290264) ASSESSMENT/PLAN: Acute right basal ganglia hemorrhage with [...] NANDO HUTTON DO on 09/05/2024 08:57 AM [facility] HospitalRbkkbrbs66-55-4684 Note* Exam Date Time Procedure Performing Provider Status 09/02/24 2:[address] Head or Brain w/o Contrast Brenda MCCLELLAN MD; Auth (Verified) [id number] ORIGINAL HISTORY: Lethargy COMPARISON: No TECHNIQUE: Routine [...] - 08/30/2024 10:09 AM EDT Marya with [facility] notified. [facility]04-18-2025 Miscellaneous Notes* Telephone Encounter - Fouzia Miller LPN - 08/30/2024 10:09 AM EDT Marya with [facility] notified. * Telephone Encounter - Mj Glover APRN.CNP - 08/30/2024 9:19 AM EDT Please let HH know that Dr. Caruso's team will follow HH orders. Okay to proceed. Mj Glover APRN.CNP * Telephone Encounter - Jaiden Paulino, ZOE - 08/30/2024 9:07 AM EDT Marya- [facility] reports patient was in [facility] with dx: stroke, and [facility]. Pt will be discharged from [facility] on 09/07/24 to home with [facility] SN PT OT [facility] & [facility]. Asking if pcp agreeable to follow for [facility]. Please phone Marya with verbal: [phone] documented in [facility] Telephone encounter Note * Telephone Encounter - Mj Glover APRN.CNP - 08/30/2024 9:19 AM EDT Please let know that Dr. Caruso's team will follow orders. Okay to proceed. Mj Glover APRN.GARRETT [facility]04-18-2025 Telephone encounter Note* Telephone Encounter - Jaiden Paulino RN - 08/30/2024 9:07 AM [facility] with dx: stroke, and [facility]. Pt will be [facility] on 09/07[facility]24 to home with [facility] SN PT OT ST & [facility]. Asking if pcp agreeable to follow for [facility]. Please phone Marya with verbal: [phone] [facility]04-14-2025 Note REFERRING PHYSICIAN: Silvino Ha DO. CONSULTING PSYCHOLOGIST: Matthew Gibson, PhD. REASON FOR REFERRAL: Neuropsychological exam. HISTORY OF PRESENT ILLNESS: Ms. Acuna is a 78-year-old right-handed white female admitted to [facility] from [facility] on 08/15/2024 after developing left-sided weakness and slurred speech. Initially seen at [facility] where brain CT was negative.CTA then showed [...] mild concussions suffered after a career in [employer]. No residual deficits reported. No other FIELD COUNSEL injuries or illnesses. MENTAL HEALTH HISTORY: No [...] of NPO. and Mrs. Acuna live in [place]. 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 She has a high school diploma from her hometown in [place], [place]. TEST RESULTS: I used the Cognistat, [...] be determined. MATTHEW GIBSON, PhD GM/NTS JOB#: [id number] DICTATION ID#: [id number] Digitally Signed by MATTHEW GIBSON PhD on 08/27/2024 08:21 AM [facility] HospitalWwmpsujo34-08-4706 Note* Exam Date Time Procedure Performing Provider Status 08/25/24 1:46 PM XR Hand and Wrist 6 Views Left Buck DUNNE DO; Auth (Verified) [id number] ORIGINAL EXAMINATION: 3 XRAY VIEWS OF THE [...] Views Left JAMAR DUNNE DO; Auth (Verified) [id number] ORIGINAL EXAMINATION: TWO XRAY VIEWS OF THE [...] Views Left JAMAR DUNNE DO; Auth (Verified) [id number] ORIGINAL EXAMINATION: TWO XRAY VIEWS OF THE [...] 1 View Contributor_system, FUJ I; Auth (Verified) [id number] ORIGINAL EXAMINATION: ONE XRAY VIEW OF THE [...] Plan noteExtracted from: Title:Clinical Document Author:EZEQUIEL HUSTON RN-COMPUTER SUPPORT ANALYST Date:08/16/24 Acute Inpatient Rehab Histor y and Physical Date of Service: 08/16/2024 Date of Admission: 08/15/2024 Attending Physician: Dr. Ha [employer] 1.1 left body involvement, right brain stroke Etiologic Diagnosis Hemorrhagic infarct involving right basal ganglia, mass effect with effacement of right lateral ventricle, tiny infarct in right cerebellum History of Present Illness 78-year-old female noted to home in inpatient rehab from [facility] stay 08/02 - 08/15 who is past medical history of coronary artery disease, diabetes mellitus type 2, atrial relation, hypertension, osteoarthritis, and hyperlipidemia who presented to the emergency room with noted left-sided weakness and slurred speech. She originally presented to [facility] with CT of the head was obtained showed no acute hemorrhage or large territory stroke. CTA showed mid right M1 occlusion however patient was not a TNK candidate. She was then transferred to a [facility] for further management. CT of head [...] feedings. Patient deemed medically stable transferred to [facility] inpatient rehab unit for physical and occupational [...] spouse, first- floor set up. Primary Director Of Loss Prevention: Self. Safe place to go: Yes. Lives [...] Rate80(AUG 15 20:06)80(AUG 15 20:06)80(AUG 15 20:06) UAT383(AUG 16 00:03)128(AUG 16 00:03)140(AUG 15 17:47) DBP76(AUG 16 00:03)76(AUG 16 00:03)80(AUG 15 17:47) 36hr Labs 08/15 1805 Blood Glucose, Wqambvpvy174M Blood Glucose, Nrymgddls553G Blood Glucose TSee Flowsheet Assessment/Plan Debility and [...] and it is both accurate and complete. [facility] 04-04-2025 Physical medicine and rehab Consult note INPATIENT REHAB MEDICAL CONSULT DATE OF ADMISSION: 08/16/2024 CC: Acute right basal hemorrhage HISTORY OF PRESENT ILLNESS: This is a 78-year-old female admitted to [facility] inpatient rehab unit from [facility] stay 08/02 - 08/15 who has a history of CAD, DM2, atrial fibrillation and hypertension who presented to the ER after notingleft-sided weakness and slurred speech. Originally presented to [facility] where CT head was obtained showing no [...] was deemed medically stable and transferred to [facility] inpatient rehab unit for physical and occasional [...] Rate80(AUG 15 20:06)80(AUG 15 20:06)80(AUG 15 20:06) MJY889(AUG 16 00:03)128(AUG 16 00:03)140(AUG 15 17:47) DBP76(AUG [...] reviewed. 36hr Labs 08/15 1805 Blood Glucose, Xncjfndkz115T Blood Glucose, Mabwamvpu007L Blood Glucose TSee Flowsheet ASSESSMENT AND PLAN: [...] will follow during acute rehabilitation stay at [facility] with the goal [...] by CATHERINE NEWMAN on 08/17/2024 04:53 PM [facility] HospitalYrjyhhol07-39-6232 Physical medicine and rehab History and physical [...] noted to home in inpatient rehab from [facility] stay 08/02 -08/15 who is past medical history of coronary artery disease, diabetes mellitus type 2, atrial relation, hypertension, osteoarthritis, and hyperlipidemia who presented to the emergency room with noted left-sided weakness and slurred speech. She originally presented to [facility] with CT of the head was obtained showed no acute hemorrhage or large territory stroke. CTA showed mid right M1 occlusion however patient was not a TNK candidate. [facility] showed [...] feedings. Patient deemed medically stable transferred to [facility] unit for physical and occupational [...] spouse, first- floor set up. Primary Director Of Loss Prevention: Self. Safe place to go: Yes. Lives [...] Rate80(AUG 15 20:06)80(AUG 15 20:06)80(AUG 15 20:06) ELL494(AUG 16 00:03)128(AUG 16 00:03)140(AUG 15 17:47) DBP76(AUG 16 00:03)76(AUG 16 00:03)80(AUG 15 17:47) 36hr Labs 08/15 1805 Blood Glucose, [id number] Blood Glucose, [id number] Blood Glucose TSee Flowsheet Assessment/Plan Debility and [...] EZEQUIEL HUSTON on 08/22/2024 05:17 AM Tyler [id number] Miscellaneous Notes* Nursing Notes - Robson Steel [...] pacing over x3-5 sessions Outcome: Ongoing Problem: DIPLOMA MEDICAL ASSISTANT - Cognition Goal: Orientation Log - Patient [...] pacing over x3-5 sessions Outcome: Ongoing Problem: DIPLOMA MEDICAL ASSISTANT - Cognition Goal: Orientation Log - 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 - If used senior care, initial PEG should be changed in 6-12 months depending on tube condition. - No plans for repeat outpatient EGD at this time based on clinical status Jonnie Mccabe MD Division of Gastroenterology, Hepatology, and Nutrition Clinical Fellow PGY-4 Pager: [phone] * Plan of Care - Manisha Cheema [...] what the specific medication was. Daughter, Keagan [phone] would be able to answer questions. Catherine [...] 5:00 PM EDT On admission to [facility], from another [facility] inpatient unit a dual [...] oropharyngeal swallow function to most appropriately guide DIPLOMA MEDICAL ASSISTANT plan of care Outcome: Met Goal: Bolus [...] readiness for diet advancement Outcome: Met Problem: DIPLOMA MEDICAL ASSISTANT - Cognition Goal: Orientation Log - Patient [...] better assess deficits and most appropriately guide DIPLOMA MEDICAL ASSISTANT plan of care Outcome: Met Goal: Attention: [...] of Care: 1. Diet: NPO. Advancement per team/DIPLOMA MEDICAL ASSISTANT recommendation 2. Ordered TF: Glucerna 1.5 @ [...] readiness for diet advancement Outcome: Ongoing Problem: DIPLOMA MEDICAL ASSISTANT - Cognition Goal: Orientation Log - Patient [...] better assess deficits and most appropriately guide DIPLOMA MEDICAL ASSISTANT plan of care Outcome: Ongoing * Nursing Notes - Aniyah Torre RN - 08/02/2024 6:13 PM EDT On admission to [facility], from [place] a dual RN [...] from previous assessment. Pt transferred to [facility] via cart accompanied by Denae [...] under emergency consent. SURGEON(S): Prema Ramos MD RECONSTRUCTIVE SURGEON(S): None ANESTHESIA: Monitored anesthesia care DESCRIPTION OF [...] - 08/02/2024 3:26 PM EDT Lindsay Acuna ([id number]) PRE OPERATIVE DIAGNOSIS Cerebral infarction due to [...] - Primary ANESTHESIOLOGIST Anesthesiologist: Tameka Ruth MD CURRICULUM DEVELOPER: Bebo Barboza APRN-CURRICULUM DEVELOPER SURGICAL STAFF Set Up Mechanic Coating Machines: Rachell Ruffin RN Utilities Estimator And Drafter: Paulina Muñiz; Radha Morales COMPLICATIONS None ESTIMATED BLOOD LOSS Minimal SPECIMENS No specimen sent * No specimens in log * Prema Ramos MD August 02, 2024 3:26 PM [facility] History of Present illness Narrative* OWEN Benavides - 08/15/2024 9:01 AM EDT Care Management Discharge Note Selected Continued Care - Admitted Since 08/02/2024 Destination Coordination complete. Service Provider Services Address Phone Fax Patient Preferred [facility] [address] [place] [address] -- -- Internal Comment last updated by OWEN Benavides 08/15/2024 0901 Report fax: [phone] Transport Request Mode of Transfer: [facility] Name of Discharge Transport Company: [employer] Discharge Transport ETA: 08/15/2024 @ 1030 Patient medically stable for discharge per physician/medical team. Pt has neurology appointment scheduled. Pt/ to schedule appointment with PCP. Patient/Musical Instrument Supervisor remain in agreement withthe discharge plan. BULMARO Allen Science Manager * OWEN Benavides - 08/14/2024 3:17 PM EDT Placement Plan Expected Discharge Date: 08/15/2024 Referred Level of Care: IPR Current Referrals and Status 1. [facility]-accepted IPR obtained precertification for Pt starting tomorrow. Pt is set-up to leave via ambulance tomorrow at 1030. CM updated Pt's by phone. IPR will provide CM with the best phone and fax numbersfor RN report tomorrow morning. BULMARO Allen Science Manager * Marybeth Ayoub - 08/14/2024 2:51 PM EDT Care Management Progress Note Transportation for discharge arranged Mode of Transfer: (P) BLS Name of Discharge Transport Company: (P) [facility] ETA: (P) 08/15/2024 @ 1030 [facility] [place] [facility] [address] [facility] [address] OWEN Morrell Science Manager Retail Business Manager [phone] * Jazzy Scottyjean-pierre - 08/14/2024 9:47 AM EDT Acute Occupational [...] position Mobility Assessment/Intervention: Supine to Sit Mobility Johnson Level: Supine->Sit: moderate assist (50% patient effort) Physical Assist: Supine->Sit: 2 person assist Bed Features/Set-up: Supine->Sit: Head of bed elevated, Use of bed rail Skilled Rationale: Verbal cues, Tactile cues, Hand placement, Positioning, Technique of activity Skilled Intervention/Details: Supine->Sit: Cues for technique of transfer and pt needing increased assistance for managing legs and trunk to EOB positioning Transfer Assessment/Intervention: Sit to Stand Transfer Johnson Level: Sit->Stand: moderate assist (50% patient effort) [...] hand held support Stand to Sit Transfer Johnson Level: Stand->Sit: moderate assist (50% patient effort) Physical Assist: Stand->Sit: 2 person assist Assistive Device: Stand->Sit: gait belt, hand held assist Skilled Rationale: Verbal cues, Tactile cues, Hand placement, Positioning, Controlled descent for sitting Skilled Intervention/Details: Stand->Sit: Cues for positioning with BSC and recliner, pt provided bilat hand held support and needing increased support for managing a controlled descent Bed-Chair Transfer Johnson Level: Bed<->Chair: maximum assist (25% patient effort) [...] managing L side during transfer Toilet Transfer Johnson Level: Toilet: moderate assist (50% patient effort) [...] upright gaze when standing Outcome Score(s): CURRENT [facility] Daily Activity Inpatient Short Form Putting on/Taking Off Lower Body Clothin - Total Assistance Bathin - A Lot of Assistance Toiletin - Total Assistance Putting on/Taking Off Upper Body Clothin - A Little Assistance Groomin - A Little Assistance Eatin - Total Assistance CURRENT [facility] Activity Raw Score: 11 CURRENT [facility] Activity Functional Limitation/Modifier: 70.42% Currently Impaired in [...] person, Oriented to place, Oriented to situation ("[facility]" "hospital" "September" "2024" "stroke") Following Commands: Follows [...] blocking Mobility Assessment/Intervention: Supine to Sit Mobility Johnson Level: Supine->Sit: moderate assist (50% patient effort) [...] sitting) Transfer Assessment/Intervention: Sit to Stand Transfer Johnson Level: Sit->Stand: moderate assist (50% patient effort) Physical Assist: Sit->Stand: 2 person assist Assistive Device: Sit->Stand: gait belt Skilled Rationale: Arm in arm, Patellar block, Ischial assist, Facilitate anterior shift, Full extension to upright positioning/posture, Finding/maintaining midline positioning Skilled Intervention/Details: Sit->Stand: repeat cues to avoid significant L lean with improvement last standing. x1 from EOB, x2 from BSC Stand to Sit Transfer Johnson Level: Stand->Sit: moderate assist (50% patient effort) Physical Assist: Stand->Sit: 2 person assist Assistive Device: Stand->Sit: gait belt Skilled Rationale: Arm in arm, Controlled descent for sitting Skilled Intervention/Details: Stand->Sit: last trial assisted R hand to recliner arm rest and ongoing cues for wt shift to R Bed-Chair Transfer Johnson Level: Bed<->Chair: maximum assist (25% patient effort) [...] Mobility Assessment/Intervention: Stairs Assessment/Intervention: Outcome Score(s): CURRENT [facility] Basic Mobility Inpatient Short Form Turning over in bed: 2 - A Lot of Assistance Moving from lying on back to sittin - Total Assistance Moving to and from bed to chair: 1 - Total Assistance Sitting/standing from chair: 2 - A Lot of Assistance Walk in hospital room: 1 - Total Assistance Climbing 3-5 steps with a railin - Total Assistance CURRENT [facility] Mobility Raw Score: 8 CURRENT [facility] Mobility Functional Limitation: 86.62% Impaired in Basic Mobility Interventions: Intervention 1 Intervention Name: [facility] supine and sitting Details: education L attention [...] 10 Treating Therapist: Shaina Rosales PT, DPT [id number] 08/14/2024 Additional Details: PT Co-Eval/Treatment Information Co-evaluation/co-treatment [...] Physical Therapy Discharge Summary. * Tanja Cason, DIPLOMA MEDICAL ASSISTANT - 08/14/2024 8:37 AM EDT Acute Care [...] on the below outcome measures/assessment score(s) and DIPLOMA MEDICAL ASSISTANT clinicaljudgment, discharge destination recommendation is: IPR Barriers to discharge home: 1:1 assist needed for IADL's including medication management and finances Supporting factors for discharge setting: Impaired swallow function limiting nutritional status andsafety with oral intake, Impaired cognitive skills limiting safety/insight Acute DIPLOMA MEDICAL ASSISTANT Outcomes Tracking Communicate basic wants and needs?: [...] independent carry over. Strong family support. Ongoing DIPLOMA MEDICAL ASSISTANT s indicated. Subjective information: Alert, present. SO referenced his notes from yesterday and reportedcarry over of exercises yesterday. Patient with zero recall Pain: Nonverbal indicator not present Precautions: Patient Safety Communication Prior to Visit: Nursing Lines/Tubes/Drains (Rehab Status): Telemetry, Tube feed Existing Precautions/Restrictions: fall Respiratory Status: O2 Sat (%): 96 % (08/14 0711) O2 Device: room air (08/14 09) Acute DIPLOMA MEDICAL ASSISTANT Goals Plan of Care by Tanja Cason DIPLOMA MEDICAL ASSISTANT at 08/14/2024 2:42 PM Version 1 of [...] RoM to achieve technique. Outcome: Ongoing Problem: DIPLOMA MEDICAL ASSISTANT - Cognition Goal: Orientation Log - Patient [...] next session: 08/14 - ongoing exercises, education DIPLOMA MEDICAL ASSISTANT Outcomes: FOIS 2 Speech Language Pathologist: RIKI [...] of session: none altered Needs in reach. DIPLOMA MEDICAL ASSISTANT Evaluation and Treatment Time Speech Therapy - Individual 87725: 14 Swallowing Dysfunction Treatment 75248: 14 Upon discontinuation of Acute Care Speech [...] on the below outcome measures/assessment score(s) and DIPLOMA MEDICAL ASSISTANT clinicaljudgment, discharge destination recommendation is: Inpatient Rehab Facility Barriers to discharge home: 1:1 assist needed for IADL's including medication management and finances Supporting factors for discharge setting: Impaired swallow function limiting nutritional status andsafety with oral intake, Impaired cognitive skills limiting safety/insight Acute DIPLOMA MEDICAL ASSISTANT Outcomes Tracking Communicate basic wants and needs?: [...] Status: O2 Sat (%): 96 % (08/13 0711) O2 Device: room air (08/13 0711) Acute DIPLOMA MEDICAL ASSISTANT Goals Plan of Care by Tanja Cason, DIPLOMA MEDICAL ASSISTANT at 08/13/2024 11:10 AM Version 1 of [...] 10 reps this session. Outcome: Ongoing Problem: DIPLOMA MEDICAL ASSISTANT - Cognition Goal: Orientation Log - Patient [...] considerations: Cognition Patient Instruction/Education comments: Role of DIPLOMA MEDICAL ASSISTANT, presence and normalized frustration with cognitive-communicative impairments. Focused on memory this date and that patient does not recall education so perseverative questions are normal. Reviewed intermittent silent aspiration from MBS last weekand ongoing signs of dysphagia this session, will plan to coordinate timing for repeat instrumentalwith care team Plan for next session: 08/13 -fair DIPLOMA MEDICAL ASSISTANT Outcomes: FOIS 2 Speech Language Pathologist: RIKI [...] of session: none altered Needs in reach. DIPLOMA MEDICAL ASSISTANT Evaluation and Treatment Time Speech Therapy - Individual 11934: 12 Swallowing Dysfunction Treatment 96153: 13 Upon discontinuation of Acute Care Speech Therapy Services or patient discharge from the hospital this note represents the current Speech Therapy Discharge Summary * OWEN Benavides - 08/12/2024 3:21 PM EDT Placement Plan Expected Discharge Date: 08/14/2024 Referred Level of Care: IPR Barriers: Medical Readiness & Precertification Current Referrals and Status 1. [facility]-accept[facility] started precertification today. BULMARO Allen Science Manager * Jazzy Aguiar - 08/12/2024 10:46 AM [...] sinkside Mobility Assessment/Intervention: Supine to Sit Mobility Johnson Level: Supine->Sit: moderate assist (50% patient effort) [...] positioning Transfer Assessment/Intervention: Sit to Stand Transfer Johnson Level: Sit->Stand: maximum assist (25% patient effort) [...] maintaining upright posture Stand to Sit Transfer Johnson Level: Stand->Sit: maximum assist (25% patient effort) Physical Assist: Stand->Sit: 2 person assist Assistive Device: Stand->Sit: gait belt, hand held assist Skilled Rationale: Verbal cues, Tactile cues, Hand placement, Positioning, Controlled descent for sitting Skilled Intervention/Details: Stand->Sit: Cues for positioning with recliner and using BUEs to help with appropriate positoining of hips in chair Bed-Chair Transfer Johnson Level: Bed<->Chair: maximum assist (25% patient effort) Physical Assist: Bed<->Chair: 2 person assist Assistive Device: Bed<->Chair: gait belt Skilled Rationale: Verbal cues, Tactile cues, Hand placement, Positioning, Technique of activity Skilled Intervention/Details: Bed<->Chair: x1 from EOB to recliner on R. Pt needing increasedsupport for managing L side and sequencing steps for appropriate positioning with recliner Outcome Score(s): CURRENT [facility] Daily Activity Inpatient Short Form Putting on/Taking Off Lower Body Clothin - Total Assistance Bathin - A Lot of Assistance Toiletin - Total Assistance Putting on/Taking Off Upper Body Clothin - A Lot of Assistance Groomin - A Lot of Assistance Eatin - Total Assistance CURRENT [facility] Activity Raw Score: 9 CURRENT [facility] Activity Functional Limitation/Modifier: 79.59% Currently Impaired in [...] speech and L hemiplegia. She presented to [facility] and was seen on Telestroke, NIHSS 12. [...] goal TF volume. Pt last assessed by DIPLOMA MEDICAL ASSISTANT 08/08 with recommendations for NPO. S/p PEG [...] chips. Will also increase free water flushes. DIPLOMA MEDICAL ASSISTANT to see pt tomorrow. Nutrition Focused Physical Exam: Nutrition Focused Physical Exam Completed?: completed Subcutaneous Fat Loss: Orbital Region (Orbital Fat Pads): WDL Cheek Region (Buccal Fat Pads): WDL Upper Arm Region (Triceps): WDL Thoracic and Lumbar Region (Ribs, Lower Back, Midaxillary Line): WDL Muscle Wasting: [place] Region (Temporalis Muscle): deferred (lac over eyebrow) [...] kg (172 lb) 06/26/24 78.9 kg (174 lb)-[facility] 05/31/24 79 kg (174 lb 2.6 oz)-[facility] 11/28/23 80.6 kg (177 lb 9.6 oz)-[facility] 09/29/23 84 kg (185 lb)-[facility] meds reviewed: Scheduled: Reviewed, includes insulin, [...] Needs: Weight Used: 61 kg (IBW) EEN: 8369-9556 kcal/day (25-30 kcal/kg) EPN: 73-92 g/day (1.2-1.5 g/kg) EFN: 1830 mL/day (30 mL/kg) or per primary team Malnutrition Statement: Does the patient meet criteria for malnutrition: No *Based on The Academy and ASPEN Indicators to Diagnose Malnutrition (AAIM) criteria (2012) Tianna Murray RD, LD, [facility] Pager #[phone] * Katie Ramos, PT - 08/12/2024 10:22 [...] standing. Mobility Assessment/Intervention: Supine to Sit Mobility Johnson Level: Supine->Sit: moderate assist (50% patient effort) Physical Assist: Supine->Sit: 2 person assist Bed Features/Set-up: Supine->Sit: Head of bed elevated Skilled Rationale: Verbal cues, Tactile cues, Hand placement, Technique of activity Skilled Intervention/Details: Supine->Sit: verbal/tactile cues for instruction on transfer technique and mod A x 2 for LE and trunk management. Transfer Assessment/Intervention: Sit to Stand Transfer Johnson Level: Sit->Stand: maximum assist (25% patient effort) Physical Assist: Sit->Stand: 2 person assist Assistive Device: Sit->Stand: gait belt Skilled Rationale: Verbal cues, Tactile cues, Hand placement, Technique of activity Skilled Intervention/Details: Sit->Stand: x2 trials with verbal/tactile cues for instruction on transfer technique, hand placement, and blocking left knee. Bed-Chair Transfer Johnson Level: Bed<->Chair: maximum assist (25% patient effort) [...] with a railin - Total Assistance CURRENT [facility] Mobility Raw Score: 7 CURRENT [facility] Mobility Functional Limitation: 92.36% Impaired in Basic [...] Physical Therapy Discharge Summary. * Radha Gr, BILLIARD PLAYER-COMPUTER SUPPORT ANALYST - 08/11/2024 7:15 AM EDT NEUROVASCULAR STROKE SERVICE Daily Progress Note IDENTIFYING INFORMATION Lindsay Acuna MR# [id number] 08/11/2024 HISTORY OF PRESENT ILLNESS Lindsay Acuna is a 78 y.o. female with PMH significant for CAD, HTN, HLD, T2DM, Afib (on Eliquis, although patient reports she has not been taking it) who presents with L hemiplegia, slurred speech. LKW 0915 on 08/02, later found down with slurred speech and L hemiplegia. She presented to [facility] and was seen on Telestroke, NIHSS 12. [...] 2b revascularization. INTERVAL HISTORY 08/05: Transfer to [place]. MBS tomorrow 08/06: Failed MBS. Increased lopressor. [...] (home dose), give mag , NPO at [place] for [facility]ABIAN PHYSICAL EXAM Gen: awake, alert [...] today 08/11 -Rate controlled on metoprolol Dysphagia: -DIPLOMA MEDICAL ASSISTANT following -NPO, DHT + TF -Failed MBS [...] Lindsay Acuna will likely be discharged to [facility] when medically ready Radha Gr, BILLIARD PLAYER-COMPUTER SUPPORT ANALYST 08/11/2024 10:17 AM VITAL SIGNS Temp: [97.2 [...] for specific therapeutic recommendations, please see the gravity prospector report of the speech pathologist. Examination performed [...] and neurological examinations as recorded by the RAWHIDE BONE ROLLER repeated and confirmed. I have personally reviewed [...] tooth. Blood cx unremarkable. * Radha Gr APRN-COMPUTER SUPPORT ANALYST - 08/10/2024 7:14 AM EDT NEUROVASCULAR STROKE SERVICE Daily Progress Note IDENTIFYING INFORMATION Lindsay Acuna MR# [id number] 08/10/2024 HISTORY OF PRESENT ILLNESS Lindsay Acuna is a 78 y.o. female with PMH significant for CAD, HTN, HLD, T2DM, Afib (on Eliquis, although patient reports she has not been taking it) who presents with L hemiplegia, slurred speech. LKW 0915 on 08/02, later found down with slurred speech and L hemiplegia. She presented to [facility] and was seen on Telestroke, NIHSS 12. [...] 2b revascularization. INTERVAL HISTORY 08/05: Transfer to [place]. MBS tomorrow 08/06: Failed MBS. Increased lopressor. [...] as above -Rate controlled on metoprolol Dysphagia: -DIPLOMA MEDICAL ASSISTANT following -NPO, DHT + TF -Failed MBS [...] Lindsay Acuna will likely be discharged to [facility] when medically ready Radha Gr APRN-COMPUTER SUPPORT ANALYST 08/10/2024 7:14 AM VITAL SIGNS Temp: [97.4 [...] for specific therapeutic recommendations, please see the gravity prospector report of the speech pathologist. Examination performed [...] and external bumper. - If used long chain quiller tender, PEG should be changed every 3-6 [...] Hepatology, and Nutrition Clinical Fellow PGY-4 Pager: [phone] For follow up questions regarding this patient 7am to 5pm, contact the IBD consults fellow or DAHLIA on e-Tag. [facility]--> Internal Medicine--> Gastroenterology, Hepatology, & Nutrition--> IBD Consult Service Fel Day OR IBD Consult Service DAHLIA Day For urgent/stat calls or new consults 5pm to 7am or all day on the weekend, please page the on-callGI fellow on [employer]. [facility]--> Internal [...] please contact for assistance as needed (8:00am-4:30pm) BASH: [phone] Maria: [phone] Johan: [phone] Ross: [phone] For Social Work assistance for the weekend, please contact SW for assistance as needed (8:00am - 4:30pm): BASH: [phone] Maria: [phone] Johan: [phone] Ross: [phone] * Radha Gr, BILLIARD PLAYER-COMPUTER SUPPORT ANALYST - 08/09/2024 8:07 AM EDT NEUROVASCULAR STROKE SERVICE Daily Progress Note IDENTIFYING INFORMATION Lindsay Acuna MR# [id number] 08/09/2024 HISTORY OF PRESENT ILLNESS Lindsay Acuna is a 78 y.o. female with PMH significant for CAD, HTN, HLD, T2DM, Afib (on Eliquis, although patient reports she has not been taking it) who presents with L hemiplegia, slurred speech. LKW 0915 on 08/02, later found down with slurred speech and L hemiplegia. She presented to [facility] and was seen on Telestroke, NIHSS 12. [...] 2b revascularization. INTERVAL HISTORY 08/05: Transfer to [place] MBS tomorrow 08/06: Failed MBS. Increased lopressor. [...] as above -Rate controlled on metoprolol Dysphagia: -DIPLOMA MEDICAL ASSISTANT following -NPO, DHT + TF -Failed MBS [...] Lindsay Acuna will likely be discharged to [facility] when medically ready Radha Gr, BILLIARD PLAYER-COMPUTER SUPPORT ANALYST 08/09/2024 8:07 AM VITAL SIGNS Temp: [97.3 [...] for specific therapeutic recommendations, please see the gravity prospector report of the speech pathologist. Examination performed [...] on the below outcome measures/assessment score(s) and DIPLOMA MEDICAL ASSISTANT clinicaljudgment, discharge destination recommendation is: Inpatient Rehab Facility Acute DIPLOMA MEDICAL ASSISTANT Outcomes Tracking Communicate basic wants and needs?: [...] pressions and introduction to effortful swallow exercise. DIPLOMA MEDICAL ASSISTANT provided education regarding recommendation of NPO given [...] constraints (transport arrived for pt's CT scan). DIPLOMA MEDICAL ASSISTANT will follow as able. Subjective information: Patient upright in chair, at bedside. Agreeable to DIPLOMA MEDICAL ASSISTANT session. Pain: General Pain Documentation (Adult, OB, [...] room air Flow (L/min): [3] 3 Acute DIPLOMA MEDICAL ASSISTANT Goals Plan of Care by RIKI Penaloza [...] phsyiology, risks of aspiration pneumonia). Educated regarding DIPLOMA MEDICAL ASSISTANT role in swallow rehab and future POC Plan for next session: 08/06: cog tx and dysphagia exercises DIPLOMA MEDICAL ASSISTANT Outcomes: FOIS: 1 Speech Language Pathologist: RIKI Penaloza Time In: 1310 Time Out: 1330 Total Visit Time: 20 minutes Total Treatment Time (skilled, billable minutes): 20 minutes Non-billable assistance during session: NA Assisted by during session: NA PPE used during patient interaction: gloves Patient location/status at end of session: chair Patient alarms at end of session: none altered Needs in reach. DIPLOMA MEDICAL ASSISTANT Evaluation and Treatment Time Swallowing Dysfunction Treatment 53238: 20 Upon discontinuation of Acute Care Speech [...] feedback Mobility Assessment/Intervention: Supine to Sit Mobility Johnson Level: Supine->Sit: moderate assist (50% patient effort) Physical Assist: Supine->Sit: 2 person assist Bed Features/Set-up: Supine->Sit: Use of bed rail, Head of bed elevated Skilled Rationale: Sequencing, Verbal cues, Hand placement, Positioning Skilled Intervention/Details: Supine->Sit: increased time/cues Transfer Assessment/Intervention: Sit to Stand Transfer Johnson Level: Sit->Stand: moderate assist (50% patient effort) Physical Assist: Sit->Stand: 2 person assist Assistive Device: Sit->Stand: gait belt, hand held assist Skilled Rationale: Positioning, Sequencing, Hand placement, Verbal cues Skilled Intervention/Details: Sit->Stand: Pt educated in sit to stand transfers x 2 attempts, one from EOB and one from chair Bed-Chair Transfer Johnson Level: Bed<->Chair: maximum assist (25% patient effort) [...] Mobility Assessment/Intervention: Stairs Assessment/Intervention: Outcome Score(s): CURRENT [facility] Basic Mobility Inpatient Short Form Turning over in bed: 2 - A Lot of Assistance Moving from lying on back to sittin - A Lot of Assistance Moving to and from bed to chair: 1 - Total Assistance Sitting/standing from chair: 1 - Total Assistance Walk in hospital room: 1 - Total Assistance Climbing 3-5 steps with a railin - Total Assistance CURRENT [facility] Mobility Raw Score: 8 CURRENT [facility] Mobility Functional Limitation: 86.62% Impaired in Basic [...] positioning Mobility Assessment/Intervention: Supine to Sit Mobility Johnson Level: Supine->Sit: moderate assist (50% patient effort) [...] positioning Transfer Assessment/Intervention: Sit to Stand Transfer Johnson Level: Sit->Stand: moderate assist (50% patient effort) Physical Assist: Sit->Stand: 2 person assist Assistive Device: Sit->Stand: gait belt, hand held assist Skilled Rationale: Verbal cues, Tactile cues, Hand placement, Positioning, Technique of activity Skilled Intervention/Details: Sit->Stand: x1 from EOB, x1 from recliner. Cues for technique and assuming an upright posture once standing Stand to Sit Transfer Johnson Level: Stand->Sit: moderate assist (50% patient effort) Physical Assist: Stand->Sit: 2 person assist Assistive Device: Stand->Sit: gait belt, hand held assist Skilled Rationale: Verbal cues, Tactile cues, Hand placement, Positioning, Controlled descent for sitting Skilled Intervention/Details: Stand->Sit: Cues for positioning with recliner and using arms to help with controlled descent into chair Bed-Chair Transfer Johnson Level: Bed<->Chair: maximum assist (25% patient effort) [...] appropriately position with chair. Outcome Score(s): CURRENT [facility] Daily Activity Inpatient Short Form Putting on/Taking Off Lower Body Clothin - Total Assistance Bathin - A Lot of Assistance Toiletin - Total Assistance Putting on/Taking Off Upper Body Clothin - A Lot of Assistance Groomin - A Lot of Assistance Eatin - Total Assistance CURRENT [facility] Activity Raw Score: 9 CURRENT [facility] Activity Functional Limitation/Modifier: 79.59% Currently Impaired in [...] Progress Note IDENTIFYING INFORMATION Lindsay Acuna MR# [id number] 08/08/2024 HISTORY OF PRESENT ILLNESS Lindsay Acuna is a 78 y.o. female with PMH significant for CAD, HTN, HLD, T2DM, Afib (on Eliquis, although patient reports she has not been taking it) who presents with L hemiplegia, slurred speech. TOREYW 0915 on 08/02, later found down with slurred speech and L hemiplegia. She presented to [facility] and was seen on Telestroke, NIHSS 12. [...] 2b revascularization. INTERVAL HISTORY 08/05: Transfer to [place] MBS tomorrow 08/06: Failed MBS. Increased lopressor. [...] as above -Rate controlled on metoprolol Dysphagia: -DIPLOMA MEDICAL ASSISTANT following -NPO, DHT + TF -Failed MBS [...] Lindsay Acuna will likely be discharged to [facility] when medically ready Bella Cardenas, BILLIARD PLAYER-COMPUTER SUPPORT ANALYST 08/08/2024 2:53 PM VITAL SIGNS Temp: [97.4 [...] for specific therapeutic recommendations, please see the gravity prospector report of the speech pathologist. Examination performed [...] bed availability Current Referrals and Status 1. [facility]- Reserved CCM notified LUCIO student confirming after call with Patient's daughter that [facility] is facility of choice. Facility reserved. AVS/DAVE [...] and patient's spouse are agreeable to [facility] as facility of choice, and Gisela is agreeable to [facility] as well. Updated SW student. Simin Resendez, RN, BSN Clinical Kitchen Runner [facility] * Chela Hannon - 08/07/2024 2:08 PM EDT Placement Plan REGISTER OF WILLS met with Patient and spouse at bedside to discuss facility choice. Spouse mentioned that [facility] was first choice, though REGISTER OF WILLS provided update that [facility] could not accept after reviewing. REGISTER OF WILLS reviewed other IPR options with Spouse, who reports that [facility] would be facility of choice. Spouse discussed with daughter Gisela via phone, who is in agreement but requestsa return call. REGISTER OF WILLS notified CCM. Chela Snyder, Social Work Student Available by Secure Chat Cosigned by OWEN Keller at 08/07/2024 2:11 PM EDT * Bella Cardenas APRN-GARRETT - 08/07/2024 6:54 AM EDT NEUROVASCULAR STROKE SERVICE Daily Progress Note IDENTIFYING INFORMATION Lindsay Acuna MR# [id number] 08/07/2024 HISTORY OF PRESENT ILLNESS Lindsay Acuna is a 78 y.o. female with PMH significant for CAD, HTN, HLD, T2DM, Afib (on Eliquis, although patient reports she has not been taking it) who presents with L hemiplegia, slurred speech. LKW 0915 on 08/02, later found down with slurred speech and L hemiplegia. She presented to [facility] and was seen on Telestroke, NIHSS 12. [...] 2b revascularization. INTERVAL HISTORY 08/05: [place] MBS tomorrow 08/06: Failed MBS. Increased lopressor. [...] as above -Rate controlled on metoprolol Dysphagia: -DIPLOMA MEDICAL ASSISTANT following -NPO, DHT + TF -Failed MBS [...] Lindsay Acuna will likely be discharged to [facility] when medically ready Bella Cardenas, BILLIARD PLAYER-COMPUTER SUPPORT ANALYST 08/07/2024 3:06 PM VITAL SIGNS Temp: [97.5 [...] for specific therapeutic recommendations, please see the gravity prospector report of the speech pathologist. Examination performed [...] authorization, transportation Current Referrals and Status 1. [facility]: Available 2. [facility]: Available 3. [facility]: Available (pending PEG or diet and their MD requested aspirin started before discharge) 4. [facility]: Available 5. [facility]: Unavailable, out of network 6. [facility]: Unavailable, Incorrect Level of Care 7. [facility] IPR: sent Met with patient and patient's spouse, Ike, at bedside to provide choice list. Ike called patient's daughter, Gisela Acuna, to discuss as well. Gisela requested information on private pay at [facility], messaged [facility] liaison and then provided information to Gisela. Gisela requested CM sendreferral to [facility]. Plan for family to review choice list FREDRICK camargo/LUCIO team will update patient and family regarding [facility] IPR response tomorrow morning. This CM's contact information provided to Ike Acuna and Gisela Acuna for any further questions. Simin Resendez RN, BSN Clinical Kitchen Runner [facility] * Florinda Velasquez, PT - 08/06/2024 [...] minutes Mobility Assessment/Intervention: Supine to Sit Mobility Johnson Level: Supine->Sit: moderate assist (50% patient effort) Bed Features/Set-up: Supine->Sit: Head of bed elevated, Use of bed rail Skilled Rationale: Positioning, Sequencing Skilled Intervention/Details: Supine->Sit: step by step cues for sequencingg Transfer Assessment/Intervention: Sit to Stand Transfer Johnson Level: Sit->Stand: moderate assist (50% patient effort) [...] left UE during transitional movements Bed-Chair Transfer Johnson Level: Bed<->Chair: moderate assist (50% patient effort) Physical Assist: Bed<->Chair: 2 person assist Assistive Device: Bed<->Chair: gait belt, hand held assist Skilled Rationale: Positioning, Hand placement, Verbal cues, Sequencing Skilled Intervention/Details: Bed<->Chair: Pt educated in bed to BSC commode transfer x 2-3 steps with cues for LE sequencing, left LE weakness requiring intermittent blocking Gait/Functional Mobility Assessment/Intervention: Gait Assessment Johnson Level: Gait: (mod/max) Physical Assist: Gait: 2 [...] prevent buckling. Stairs Assessment/Intervention: Outcome Score(s): CURRENT [facility] Basic Mobility Inpatient Short Form Turning over [...] with a railin - Total Assistance CURRENT [facility] Mobility Raw Score: 9 CURRENT AM-PAC Mobility Functional Limitation: 81.38% Impaired in Basic [...] Discharge Summary. * Nimesh Balderrama [facility] - 08/06/2024 1:42 PM EDT Department of Pharmacy Admission Medication Reconciliation Note Patient: Lindsay Acuna Room/Bed: 1043/A I have reviewed the patient's home medication list with the following sources Dispense Report. The home medication list status is: complete. All changes to the home medication list have been updated in [facility]. Updated CHIEF COMPLIANCE OFFICER Med List: Prior to Admission Medications Prescriptions [...] further questions. Name: Nimesh Balderrama [facility] Phone #: [phone] Date/Time: 08/06/2024 1:42 PM Time Spent: 10 [...] noted Mobility Assessment/Intervention: Supine to Sit Mobility Johnson Level: Supine->Sit: moderate assist (50% patient effort) [...] completion. Transfer Assessment/Intervention: Sit to Stand Transfer Johnson Level: Sit->Stand: (x 1 trial from EOB [...] and kyphotic posture. Stand to Sit Transfer Johnson Level: Stand->Sit: moderate assist (50% patient effort) Assistive Device: Stand->Sit: gait belt (Arm and arm assist.) Skilled Rationale: Cues for increased safety, Initiation and execution of task, Technique of activity, Controlled descent for sitting, Ischial assist, Arm in arm, Tactile cues, Verbal cues, Hand placement, Sequencing, Positioning Bed-Chair Transfer Johnson Level: Bed<->Chair: moderate assist (50% patient effort) [...] with left LE). Functional Mobility: Functional Mobility Johnson Level: Functional Mobility/Gait: (Moderate-max assistance) Physical Assist: [...] overall decreased insight/awareness intodeficits. Outcome Score(s): CURRENT [facility] Daily Activity Inpatient Short Form Putting on/Taking Off Lower Body Clothin - Total Assistance Bathin - A Lot of Assistance Toiletin - Total Assistance Putting on/Taking Off Upper Body Clothin - A Lot of Assistance Groomin - A Lot of Assistance Eatin - Total Assistance ([place].) CURRENT [facility] Activity Raw Score: 9 CURRENT [facility] Activity Functional Limitation/Modifier: 79.59% Currently Impaired in [...] Occupational Therapy Discharge Summary. * Taran Traore APRN-COMPUTER SUPPORT ANALYST - 08/06/2024 7:49 AM EDT NEUROVASCULAR STROKE SERVICE Daily Progress Note IDENTIFYING INFORMATION Lindsay Acuna MR# [id number] 08/06/2024 HISTORY OF PRESENT ILLNESS Lindsay Acuna is a 78 y.o. female with PMH significant for CAD, HTN, HLD, T2DM, Afib (on Eliquis, although patient reports she has not been taking it) who presents with L hemiplegia, slurred speech. LKW 0915 on 08/02, later found down with slurred speech and L hemiplegia. She presented to [facility] and was seen on Telestroke, NIHSS 12. [...] 2b revascularization. INTERVAL HISTORY 08/05: [place]. [facility] tomorrow 08/06: Failed MBS. Increased lopressor. Spouse [...] as above -Rate controlled on metoprolol Dysphagia: -DIPLOMA MEDICAL ASSISTANT following -NPO, DHT + TF -Failed MBS [...] Lindsay Acuna will likely be discharged to [facility] when medically ready Taran Traore APRN-COMPUTER SUPPORT ANALYST 08/06/2024 1:43 PM VITAL SIGNS Temp: [96.5 [...] for specific therapeutic recommendations, please see the gravity prospector report of the speech pathologist. Examination performed [...] Progress Note IDENTIFYING INFORMATION Lindsay Acuna MR# [id number] 08/05/2024 HISTORY OF PRESENT ILLNESS Lindsay Acuna is a 78 y.o. female with PMH significant for CAD, HTN, HLD, T2DM, Afib (on Eliquis, although patient reports she has not been taking it) who presents with L hemiplegia, slurred speech. LKW 0915 on 08/02, later found down with slurred speech and L hemiplegia. She presented to [facility] and was seen on Telestroke, NIHSS 12. [...] 2b revascularization. INTERVAL HISTORY 08/05: Transfer to [place]. MBS tomorrow PHYSICAL EXAM Gen: awake, alert, NAD [...] as above -Rate controlled on metoprolol Dysphagia: -DIPLOMA MEDICAL ASSISTANT following -NPO, DHT + TF -MBS tomorrow HLD, POA: -Atorvastatin 40 mg daily CAD, POA: -Hold ASA for 7 days due to ICH T2DM, POA: -SSI regular + accuchecks CKD Stage 3A, POA: Baseline Cr 1.3 -Avoid nephrotoxins, monitor Hypothyroidism, POA: -Continue home levothyroxine 75 mcg daily Disposition: Lindsay Acuna will likely be discharged to [facility] when medically ready Taran Traore APRN-COMPUTER SUPPORT ANALYST 08/05/2024 2:19 PM VITAL SIGNS Temp: [97.8 [...] on the below outcome measures/assessment score(s), and DIPLOMA MEDICAL ASSISTANT clinical judgment, discharge destination recommendation is: Pending [...] Impaired cognitive skills limiting saf ety/insight Acute DIPLOMA MEDICAL ASSISTANT Outcomes Tracking Communicate basic wants and needs?: [...] oropharyngeal swallow function to most appropriately guide DIPLOMA MEDICAL ASSISTANT plan of care. Of note, patient is [...] Currentdeficits impact her safety and independence. Ongoing DIPLOMA MEDICAL ASSISTANT services are warranted. Subjective information: Awake, alert, [...] O2 Device: room air (08/05 0830) Acute DIPLOMA MEDICAL ASSISTANT Goals Plan of Care by Queta Gardner DIPLOMA MEDICAL ASSISTANT at 08/05/2024 11:49 AM Version 1 of [...] oropharyngeal swallow function to most appropriately guide DIPLOMA MEDICAL ASSISTANT plan of care Outcome: Ongoing Problem: DIPLOMA MEDICAL ASSISTANT - Cognition Goal: Orientation Log - Patient [...] better assess deficits and most appropriately guide DIPLOMA MEDICAL ASSISTANT plan of care Outcome: Met Tx: Noted [...] Plan for next session: 08/05: Good candidate; [facility] DIPLOMA MEDICAL ASSISTANT Outcomes: DIPLOMA MEDICAL ASSISTANT Outcomes / Standardized Measures Score The Orientation [...] wrist restraints, RN aware Needs in reach. DIPLOMA MEDICAL ASSISTANT Evaluation and Treatment Time Speech Therapy - Individual 41564: 8 Swallowing Dysfunction Treatment 49145: 9 Upon discontinuation of Acute Care Speech Therapy Services or patient discharge from the hospital this note represents the current Speech Therapy Discharge Summary * Chela Hannon - 08/05/2024 10:37 AM EDT Placement Plan Expected Discharge Date: TBD Referred Level of Care: IPR Barriers: medical stability, bed availability Current Referrals and Status 1. [facility]- sent; denied (Patient is OON) 2. [facility]- sent 3. [facility]- sent 4. [facility]- sent 5. [facility]- sent 6. [facility] REGISTER OF WILLS met with Patient and Spouse at bedside to discuss discharge planning. Patient and spouse were agreeable to SW visit. REGISTER OF WILLS discussed therapy recommendations with Spouse for Patient to go to [facility] at discharge. Spouse is agreeable to a referral being sent to [facility]. Referral sent. Spouse requested to speak to SW about assessing Patient for dementia. REGISTER OF WILLS and bedside RN encouragedSpouse to discuss with Patient's outpatient provider. Chela Snyder, Social Work Student Available by Secure Chat Cosigned by OWEN Keller at 08/05/2024 11:22 AM EDT * Savana Leung, RD - 08/05/2024 10:10 AM EDT NUTRITION ASSESSMENT Nutrition Recommendations and Plan of Care: 1. Diet: NPO. Advancement per team/DIPLOMA MEDICAL ASSISTANT recommendation 2. Ordered TF: Glucerna 1.5 @ [...] time. Per team, pt failed bedside swallow. DIPLOMA MEDICAL ASSISTANT consulted for swallow eval. Past History No [...] kg (172 lb) 06/26/24 78.9 kg (174 lb)-[facility] 05/31/24 79 kg (174 lb 2.6 oz)-[facility] 11/28/23 80.6 kg (177 lb 9.6 oz)-[facility] 09/29/23 84 kg (185 lb)-[facility] Pt without significant weight change CHIEF COMPLIANCE OFFICER. Tmax: 97.8*F BP: (!) 173/94 Pulse (Heart [...] proximal second portion of the duodenum. BM: CHIEF COMPLIANCE OFFICER Urine: 725mL Skin: Raghu Score: 13 Active Wounds: Wound Sheath Site 08/02/24 1500 Right Radial (3) Wound Abrasion 08/02/249 Left;Upper Face (3) Edema- None Estimated Nutrition Needs: Based on IBW (61.4kg) Estimated Kcals Needs: 4232-8811 kcals (25-30kcals/kg) Estimated Pro Needs: 74-92g Pro (1.2-1.5g/kg) Estimated Fluid Needs: Per MD Nutrition Focused Physical Exam Completed?: completed Subcutaneous Fat Loss: Orbital Region (Orbital Fat Pads): WDL Cheek Region (Buccal Fat Pads): WDL Upper Arm Region (Triceps): WDL Thoracic and Lumbar Region (Ribs, Lower Back, Midaxillary Line): WDL Muscle Wasting: [place] Region (Temporalis Muscle): deferred (lac over eyebrow) [...] Diagnose Malnutrition (AAIM) criteria (2012) ELVIRA Ho, NITHYA, LD, [facility] Pager: [phone] * Rashad Rg MD - 08/05/2024 9:42 AM EDT 78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 * Shanna Russ, JASIEL-COMPUTER SUPPORT ANALYST - 08/05/2024 7:20 AM EDT NEUROCRITICAL CARE [...] Visual richards intact to confrontation. PERRL. 3mm sales engineer engineered products III, IV and : EOMI. No nystagmus. [...] aggressive pulm edema, OOB as toleratd - [id number], encourage pulmonary toileting Cards: Essential HTN HLD [...] displayed. 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 Recent Labs 08/02/241842 ALBUMIN 3.5 BILIDIRECT 0.1 BILITOTAL 0.6 ALKPHOS 117 ALT 10 AST 17 TP 6.3* - DIET NPO AND TUBE FEEDING with meds (per DHT) - [place] Swallow Screening Result: failed=NPO Bowel regimen: - Last Bowel Movement: (prior to admission) - Senna 17.2 mg Q12H, miralax BID, suppository PRN Stress ulcer prophylaxis: - none Dysphagia - DHT placed - DIPLOMA MEDICAL ASSISTANT following; NPO continue following, on TF - [...] the assigned neurocritical care provider (resident, fellow, RAWHIDE BONE ROLLER, orPA) or page/call the corresponding number below NCC1 (Beds [phone]): [place] # [phone], pager #[phone] NCC2 (Beds 0451-8769, [address], and overflow): [place] #: [phone], pager #[phone] * Florinda Velasquez, PT - 08/04/2024 1:36 [...] noted Mobility Assessment: Supine to Sit Mobility Johnson Level: Supine->Sit: moderate assist (50% patient effort) [...] EOB Transfer Assessment: Sit to Stand Transfer Johnson Level: Sit->Stand: moderate assist (50% patient effort) Physical Assist: Sit->Stand: 2 person assist Assistive Device: Sit->Stand: gait belt, hand held assist Skilled Rationale: Positioning, Sequencing, Hand placement, Verbal cues Skilled Intervention/Details: Sit->Stand: x 1 from EOB Bed-Chair Transfer Johnson Level: Bed<->Chair: moderate assist (50% patient effort) Physical Assist: Bed<->Chair: 2 person assist Assistive Device: Bed<->Chair: gait belt, hand held assist Skilled Rationale: Positioning, Sequencing, Hand placement, Verbal cues Skilled Intervention/Details: Bed<->Chair: x 2-3 steps from bed to chair Gait/Functional Mobility: Stairs: Outcome Score(s): CURRENT [facility] Basic Mobility Inpatient Short Form Turning over [...] with a railin - Total Assistance CURRENT [facility] Mobility Raw Score: 10 CURRENT [facility] Mobility Functional Limitation: 76.75% Impaired in Basic [...] Edema: Mobility Assessment: Supine to Sit Mobility Johnson Level: Supine->Sit: moderate assist (50% patient effort) Physical Assist: Supine->Sit: 2 person assist Bed Features/Set-up: Supine->Sit: Head of bed elevated Skilled Rationale: Positioning, Hand placement, Verbal cues, Technique of activity Transfer Assessment: Sit to Stand Transfer Johnson Level: Sit->Stand: moderate assist (50% patient effort) Physical Assist: Sit->Stand: 2 person assist Assistive Device: Sit->Stand: gait belt, hand held assist Skilled Rationale: Positioning, Hand placement, Verbal cues, Technique of activity Stand to Sit Transfer Johnson Level: Stand->Sit: moderate assist (50% patient effort) Physical Assist: Stand->Sit: 2 person assist Assistive Device: Stand->Sit: hand held assist Skilled Rationale: Positioning, Hand placement, Verbal cues, Arm in arm, Controlled descent for sitting Bed-Chair Transfer Johnson Level: Bed<->Chair: moderate assist (50% patient effort) Physical Assist: Bed<->Chair: 2 person assist Assistive Device: Bed<->Chair: gait belt, hand held assist Skilled Rationale: Arm in arm, Patellar block, Technique of activity Skilled Intervention/Details: Bed<->Chair: LLE weakness/blocking of patella with transfer, pivot to right Functional Mobility: Outcome Score(s): CURRENT -[facility] Daily Activity Inpatient Short Form Putting on/Taking Off Lower Body Clothin - A Lot of Assistance Bathin - A Lot of Assistance Toiletin - Total Assistance Putting on/Taking Off Upper Body Clothin - A Lot of Assistance Groomin - A Little Assistance Eatin - Total Assistance CURRENT AM-[facility] Activity Raw Score: 11 CURRENT AM-[facility] Activity Functional Limitation/Modifier: 70.42% Currently Impaired in [...] OT Evaluation and Treatment Time OT Evaluation ([facility]) Time Entry: 18 Evaluating Therapist: Dona Sharp [...] assessment and plan as documented by the RAWHIDE BONE ROLLER with my changes/additions added. Patient is a [...] ICH x 7 days - Statin - PT/OT/DIPLOMA MEDICAL ASSISTANT evaluation Pulmonary: No acute issues, appears to [...] and other supportive care as per the RAWHIDE BONE ROLLER note from the same day This patient [...] [facility] the [facility], [facility] and other care providers. Management of the above was performed. My time managing this critically ill patient included review of interval history, laboratories, radiology and cons ultation reports; performing a physical examination; discussing the patient with the multi-disciplinary team and managing life sustaining therapies to prevent imminent clinical deterioration. Richard Mejia MD Neurocritical Care Attending * Balbir Mccoy APRN-COMPUTER SUPPORT ANALYST - 08/04/2024 7:44 AM EDT NEUROCRITICAL CARE [...] Visual richards intact to confrontation. PERRL. 3mm sales engineer engineered products III, IV and : EOMI. No nystagmus. [...] SpO2 >92%; wean FiO2 as tolerated - [id number], encourage pulmonary toileting Cards: Essential HTN HLD [...] TUBE FEEDING with meds (per DHT) - [place] Swallow Screening Result: failed=NPO Bowel regimen: - Last Bowel Movement: (prior to admission) - Senna 17.2 mg Q12H, miralax at bedtime Stress ulcer prophylaxis: - none Dysphagia - DHT placed - DIPLOMA MEDICAL ASSISTANT following - Tube feed: Vital AF with goal rate 70 mL/h Endo: DM Type 2 Hypothyroid DM - Goal blood glucose 140-180 - home regimen: Glimepiride 2 mg daily, metformin 1000 mg daily - current regimen: Insulin high SSI regular Q6H, scheduled insulin 4 units Q6H for tube feed coverage. - A1c: 7.8 Recent Labs 08/02/24 18408/02/24 2325 08/03/24 1719 08/04/24208/04/24 0620 GLUCOSE 210* [...] Discussed with NCCU Attending, Dr. Jackie Mccoy, BILLIARD PLAYER-COMPUTER SUPPORT ANALYST 08/04/24 7:44 AM Check the treatment team to find the assigned neurocritical care provider (resident, fellow, RAWHIDE BONE ROLLER, orPA) or page/call the corresponding number below NCC1 (Beds 2104-0460): [place] # [phone], pager #[phone] NCC2 (Beds 5271-3006, [address], and overflow): [employer] #: [phone], pager #[phone] * Rafael Garcia MD - 08/03/2024 2:16 PM EDT NEUROVASCULAR Consult Daily Progress Note IDENTIFYING INFORMATION Lindsay Acuna MR# [id number] 08/03/2024 HISTORY OF PRESENT ILLNESS Lindsay Acuna is a 78 y.o. female with PMH significant for CAD, HTN, HLD, T2DM, Afib (on Eliquis, although patient reports she has not been taking it) who presents with L hemiplegia, slurred speech. She was last seen normal by her at 0915, later found down with slurred speech and L hemiplegia. She presented to [facility] and was seen on Telestroke, NIHSS 12. [...] speech and L hemiplegia. She presented to [facility] and was seen on Telestroke, NIHSS 12. [...] workup. Delbert Kasper MD * Nohelia Oconnell, DIPLOMA MEDICAL ASSISTANT - 08/03/2024 12:09 PM EDT Acute Care DIPLOMA MEDICAL ASSISTANT Speech/Language/Cognitive Evaluation Best mode of Communication: spoken language (regular speech) Discharge Recommendations: Based on the below outcome measures/assessment score(s) and DIPLOMA MEDICAL ASSISTANT clinicaljudgment, discharge destination recommendation is: (Skilled speech therapy services at next level of care) Barriers to discharge home: Cognitive impairments that impact safety and independence Supporting factors for discharge setting: Impaired swallow function limiting nutritional status andsafety with oral intake Acute DIPLOMA MEDICAL ASSISTANT Outcomes Tracking Communicate basic wants and needs?: [...] speech and L hemiplegia. She presented to [facility] and was seen on Telestroke,NIHSS 12. CTH [...] 0 Asthenia (A): 0 Strain (S): 0 DIPLOMA MEDICAL ASSISTANT Outcomes / Standardized Measures Score The Orientation [...] unable to respond. Total Score: 12 Acute DIPLOMA MEDICAL ASSISTANT Goals Plan of Care by RIKI Hayes at 08/03/2024 11:25 AM Version 1 of 1 Problem: Dysphagia Goal: Ongoing Assessment - Patient will participate in ongoing assessment by accepting various PO consistency trials with appropriate participation/oral acceptance and no significant respiratory complications to determine readiness for diet advancement Outcome: Ongoing Problem: DIPLOMA MEDICAL ASSISTANT - Cognition Goal: Orientation Log - Patient [...] better assess deficits and most appropriately guide DIPLOMA MEDICAL ASSISTANT plan of care Outcome: Ongoing Speech Language [...] of session: bed alarm Needs in reach. DIPLOMA MEDICAL ASSISTANT Evaluation and Treatment Time Speech Eval - Sound Production W/Lang Comp and Exp 11196: 11 Swallowing Eval 31014: 10 Upon discontinuation of Acute Care Speech [...] on the below outcome measures/assessment score(s) and DIPLOMA MEDICAL ASSISTANT clinicaljudgment, discharge destination recommendation is: Deferred to PT/OT recomendations related to mobility Current therapy frequency recommendation in acute care: Swallow Therapy Frequency: 5 times a week Acute DIPLOMA MEDICAL ASSISTANT Outcomes Tracking Communicate basic wants and needs?: [...] speech and L hemiplegia. She presented to [facility] and was seen on Telestroke,NIHSS 12. 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 Prior DIPLOMA MEDICAL ASSISTANT history: No prior speech history per chart [...] and Liquids Trialed Modality Amount Ice Teaspoon, DIPLOMA MEDICAL ASSISTANT-fed 3x Thin Teaspoon 3x Oral Phase Function [...] Patient presents with presumed pharyngeal phase impairments. [place] Swallow Screen: (administered by: RN) [place] Swallow Screening Screening Exclusion Criteria: none, continue with [place] Swallow Screening Cognitive Screen: Orientation: able to [...] Water Swallow Challenge : coughing/throat clearing-overt signs/symptoms [place] Swallow Screening Result: failed=NPO Voice and Swallow [...] Ok for ice chips with RN supervision. DIPLOMA MEDICAL ASSISTANT will continue to follow for ongoing dysphagia management. Patient Education/Instruction Learners: Patient Education provided: Dysphagia recommendation risk: benefit analysis, Role of this discipline Teaching method: Verbal Education/Instruction Learner response: Needs review Learning preferences: Auditory Learning considerations: Cognition Plan for next session: 08/03: Good Prognosis, ongoing dysphagia management to determine readiness for diet advancement vs instrumental. Acute DIPLOMA MEDICAL ASSISTANT Goals Plan of Care by RIKI Hayes at 08/03/2024 11:25 AM Version 1 of 1 Problem: Dysphagia Goal: Ongoing Assessment - Patient will participate in ongoing assessment by accepting various PO consistency trials with appropriate participation/oral acceptance and no significant respiratory complications to determine readiness for diet advancement Outcome: Ongoing Problem: DIPLOMA MEDICAL ASSISTANT - Cognition Goal: Orientation Log - Patient [...] better assess deficits and most appropriately guide DIPLOMA MEDICAL ASSISTANT plan of care Outcome: Ongoing Speech Language Pathologist: RIKI Hayes, [facility] Board Certified Specialist in Swallowing and Swallowing Disorders Available via [employer] Chat Time In: 1130 Time Out: 1151 Total Visit Time: 21 minutes Total Treatment Time (skilled, billable minutes): 21 minutes Non-billable assistance during session: none Assisted by during session: Patient's PPE used during patient interaction: gloves Patient location/status at end of session: bed with head of bed elevated Patient alarms at end of session: bed alarm Needs in reach. DIPLOMA MEDICAL ASSISTANT Evaluation and Treatment Time Speech Eval - Sound Production W/Lang Comp and Exp 46114: 11 Swallowing Eval 90817: 10 Upon discontinuation of Acute Care Speech Therapy Services or patient discharge from the hospital this note represents the current Speech Therapy Discharge Summary * Richard Mejia MD - 08/03/2024 10:30 AM EDT I have independently seen and examined the patient on 08/03/24. I agree with the history, examination, assessment and plan as documented by the RAWHIDE BONE ROLLER with my changes/additions added. Patient is a [...] the setting of ICH - Statin - PT/OT/DIPLOMA MEDICAL ASSISTANT evaluation Pulmonary: No acute issues, appears to [...] and other supportive care as per the RAWHIDE BONE ROLLER note from the same day This patient [...] care services to the [facility] today [facility], teaching and other care providers. Management [...] with assistance from spouse Care Management Plan REGISTER OF WILLS met with Patient and Spouse at bedside to complete Initial Assessment. They were agreeable to SW visit. Patient was lethargic though able to answer some short questions. Patient consented to Spouse assisting with assessment. Spouse/Patient report that Patient has never completed a HCPOA. They expressed interest, and REGISTER OF WILLS will follow to complete document when Patient is more alert and oriented. Spouse reports himself and Patient live in a ranch-style home with strong supports from their community, including 2 neighbors that have assisted at this time. He noted that himself and Patient recently returned from a visit to [facility] for their anniversary. Spouse reports that their 2 children will be visiting soon. REGISTER OF WILLS explained SW role and offered resources. Spouse [...] Spouse: Yes Name and Contact information: Ike Loydond P: [phone] Adult Child(jj), List All Adult Children: Yes Name and Contact information: Donnell Acuna P: [phone]; Nathen Acuna P: [phone] Would you like to add additional adult [...] for Advance Care Planning? : Patient Agreeable (REGISTER OF WILLS to follow for HCPOA completion when Patient is more alert and oriented) Medication Management Does the patient have prescription insurance coverage? : Yes Is the patient on Anticoagulation? : Yes (Per chart review, Patient is on anticoagulation but has not been taking it (does not recall the last time she took a dose)) Provider or Clinic that manages Anticoagulation?: (unspecified at this time) [facility] [address] [place] [phone] [facility] [address] [facility] [address] Living Environment and Support System Is the patient from a facility or penitentiary?: No Living Environment: House ("1 bedroom ranch") [...] themselves at home? : Unable to assess Childcare Center Director Does the patient or field support representative express financial concerns? : No Chela Snyder, Social Work Student Available by Secure Chat Cosigned by OWEN Keller at 08/03/2024 11:20 AM EDT * Balbir Mccoy APRN-COMPUTER SUPPORT ANALYST - 08/03/2024 7:40 AM EDT NEUROCRITICAL CARE [...] Visual richards intact to confrontation. PERRL. 3mm sales engineer engineered products III, IV and : EOMI. No nystagmus. [...] SpO2 >92%; wean FiO2 as tolerated - [id number], encourage pulmonary toileting Cards: Essential HTN HLD [...] - Bowel regimen: - Last Bowel Movement: (CHIEF COMPLIANCE OFFICER) - Senna, miralax Stress ulcer prophylaxis: - none Dysphagia - DHT placed - DIPLOMA MEDICAL ASSISTANT following - Tube feed: Vital AF with [...] prophylaxis - rationale: post thrombectomy [x] Lines [place]: n/a Gallegos: inserted 08/02, (indication: strict I&O) [...] the assigned neurocritical care provider (resident, fellow, RAWHIDE BONE ROLLER, orPA) or page/call the corresponding number below NCC1 (Beds 3730-8965): [place] # [phone], pager #[phone] NCC2 (Beds 2706-5923, 12 Nando, and overflow): [place] #: [phone], pager #[phone] * Nando Caceres MD - 08/03/2024 6:00 [...] nccu Neurosurgery signing off Please page [phone] ([phone]) with questions Complexity. Hypocalcemia - Continue to monitor and replete. Any conditions listed below are present on admission unless otherwise specified. . Cosigned by Prema Ramos MD at 08/03/2024 6:37 PM EDT * Andreas Ga [facility] - 08/02/2024 10:57 PM EDT Department of Pharmacy Renal Documentation Note Patient: Lindsay Acuna Room/Bed: [facility]/A Assessment and Plan: The patient's most recent [...] any questions, Name: Andreas Ga RPH Phone: [phone] Date/Time: 08/02/2024 10:57 PM * Richard Mejia MD - 08/02/2024 6:01 PM EDT I have independently seen and examined the patient on 08/02/24. I agree with the history, examination, assessment and plan as documented by the RAWHIDE BONE ROLLER with my changes/additions added. Patient is a [...] to determine stroke burden - Statin - PT/OT/DIPLOMA MEDICAL ASSISTANT evaluation Pulmonary: No acute issues, appears to [...] stage 3a - Maintain euvolemia GI/Nutrition: - DIPLOMA MEDICAL ASSISTANT evaluation - Bowel regimen to prevent constipation [...] and other supportive care as per the RAWHIDE BONE ROLLER note from the same day This patient [...] MD Neurocritical Care Attending documented in this [facility]03-29-2025 Consult note* Niru Koch MD - 08/10/2024 [...] today. Consent obtained by at bedside. - DIPLOMA MEDICAL ASSISTANT eval: none - RD eval: none PAST [...] ASSESSMENT/RECOMMENDATIONS: - primary team feels that long chain quiller tender enteric nutrition is warranted in s/o CVA. Patient is appropriate for endoscopic PEG placement. Consent obtained from at bedside. - we will tentatively plan for EGD for PEG placement 08/09 as add on case. See pre procedure recommendations below. For PEG: - Ancef ordered (1 gm if patient is <80 kg; 2 gm if patient is >80 kg) as "auto service station attendant to the procedure"). - Please make NPO [...] Hepatology, and Nutrition Clinical Fellow PGY-4 Pager: [phone] For urgent/stat calls 5pm to 7am or all day on the weekend, please page the on- call GI fellow on [employer]. IM Consult Serv GHN --> [facility] STAT/NEW GI consults For follow up questions regarding this patient, contact the IBD consults fellow or DAHLIA on [employer]. IM Consult Serv GHN --> [facility] [...] and medical decisions as outlined. Need for long chain quiller tender non-oral enteric nutrition per primary team. We will facilitate this with planned PEG tube placement. Before placement, non-GI management of TF should be established to avoid delays. David Woods M.D. 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 Prema Ramos M.D. Partridge Farmer Department of Neurosurgery [facility] * Taran Zamudio León, BILLIARD PLAYER-COMPUTER SUPPORT ANALYST - 08/02/2024 2:44 PM EDT Neurovascular Evaluation [...] speech and L hemiplegia. She presented to [facility] and was seen on Telestroke, NIHSS 12. [...] Well: Date: 08/02/24 Last Known Well: Time: 09 Source of information: family Review of Systems [...] solution Intravenous Continuous PRN Bebo Barboza APRN- CURRICULUM DEVELOPER New Bag at 08/02/24 1507 Scheduled Meds: [...] protrudes midline Motor: L hemiplegia Reflexes: Coordination: [id number]-[id number]-[id number] intact on the R, unable to test [...] Continuous telemetry -PT, OT, Speech and social services consults Other problems: Complexity. Any conditions listed [...] speech and L hemiplegia. She presented to [facility] and was seen on Telestroke, NIHSS 12. [...] [facility] note* RIKI Gonzales - 08/06/2024 [...] the below outcome measures/assessment score(s), MBS, and DIPLOMA MEDICAL ASSISTANT clinical judgment, discharge destination recommendation is: IP Rehab Facility. Patient demonstrates good candidacy for discharge to: IRF. Additional supporting factors include: Impaired swallow functionlimiting nutritional status and safety with oral intake. Acute DIPLOMA MEDICAL ASSISTANT Outcomes Tracking Communicate basic wants and needs?: [...] speech and L hemiplegia. She presented to [facility] and was seen on Telestroke, NIHSS 12. [...] Thin Barium: teaspoon x2, straw x2 Varibar [place] Barium: straw x1 Varibar Thin Honey Barium: [...] recommend NPO and nonoral meds. Ongoing skilled DIPLOMA MEDICAL ASSISTANT services indicated to address deficits and maximize [...] PO challenge trials and dysphagia exercises, family [facility] RECOMMENDATIONS: Swallow Recommendations Recommended Method of Nutrition: NPO, Short-term alternate nutrition Recommended Medication Administration (as appropriate per MD): Non-Oral Recommended Rehab Activities: bolus manipulation exercises, pharyngeal contraction/effortful swallow Assessment Criteria For Skilled Therapeutic Interventions Met: yes, treatment indicated Acute DIPLOMA MEDICAL ASSISTANT Goals Plan of Care by Tanja Hunter DIPLOMA MEDICAL ASSISTANT at 08/06/2024 9:33 AM Version 1 of 1 Problem: Dysphagia Goal: MBS - Patient will participate in Modified Barium Swallow (MBS) Study to objectively assess oropharyngeal swallow function to most appropriately guide DIPLOMA MEDICAL ASSISTANT plan of care Outcome: Met Goal: Bolus [...] Treatment Time (skilled, billable minutes): 20 minutes DIPLOMA MEDICAL ASSISTANT Evaluation and Treatment Time MBS/Motion Fluoroscopic Swallowing Eval 23802: 20 Speech Language Pathologist: RIKI Gonzales Time [...] end of session: none altered (RN present) DIPLOMA MEDICAL ASSISTANT Evaluation and Treatment Time MBS/Motion Fluoroscopic Swallowing Eval 79625: 20 Upon discontinuation of Acute Care Speech Therapy Services or patient discharge from the hospital this note represents the current Speech Therapy Discharge Summary documented in this [facility]03-25-2025 Hospital Discharge instructions* Discharge Instructions* Jhoana Casarez APRN-COMPUTER SUPPORT ANALYST - 08/06/2024 8:38 AM EDT Please take [...] you at all times. Stroke Education: visit [email or web address] What are the most common symptoms of [...] all ordered medications [x] Avoid non-prescription or xdrt-ikq-ywzcedk medication not cleared by your physician [x] [...] may call the neurovascular doctors office at [phone], if you have questions Mon-Fri between 8:30 am and 4:30 pm. - For off hours or the weekend you may call the office or the hospital computer operator at and ask for the stroke resident auto service station attendant to be paged. - If you have any other questions or needs, please call Aniyah DOSS, RN, Stroke Nurse Navigator at [phone] Mon-Mon between 7:00am and 3:00pm. - Additional assistance may be found by reaching out to our Case Management Office at [phone]. *In the event of an Emergency: If you have a physical or psychiatric emergency call 911 or go to your local emergency department. You should also call your outpatient provider's emergency number. Other reference numbers: [facility] Intake Office at 446-956-4420; [employer] at 382-823-3987; or Suicide Prevention Hotline at 096-349-1153. *Helpful phone numbers: Free Crisis Hotline: 1-039-926-TALK ( ) Suicide Hotline: 515.797.8480 Seniors Suicide Hotline: 922.137.1646 [facility] Youth: 612.325.6193 Mental [facility]: 172.836.4572 (free counseling) [employer] Access Hotline: 332-100-ZYRG (485-273-9922) 24-hour crisis text hotline: Text the word "4hope" to 455-882 for crisis support. Texting this number is [...] you may qualify for Medicaid/public assistance: The [facility] Department of Job and Family Services can now process zayas (TANF), food (SNAP) and Medicaid Applications over the phone. Please call 1-248-662[facility] ([phone]) and apply over the phone or apply online at www.benefits.[place].gov. Monday-Monday 8am-12pm noon. Medication Assistance Programs [employer] members can buy 100+ common prescriptions for FREE, $3 or $6. Annual membership is $36 for individuals and $72 for families (up to 6 people, including pets). Sign up online or enroll at your nearest pharmacy! -[employer], web site can provide a significant number of coupons for medications at a much lower raymundo. [place] Department of Aging The Department of Aging administers programs and services to meet the needs of older [place]. Services and resources offered per county may include transportation, housekeeping, meals and nutrition, personal care, case management, safety monitoring, home medical equipment, legal services, financial cost analyst, health and wellness, education, caregiver support, respite care, etc. Call to be connected to the area agency on aging serving your community or visit aging.[place].gov/find-services. Request a consultation with a community resource expert at ltssi.age.[place].gov/ [facility] Stroke Support The [facility] Stroke Support Group is for stroke survivors, friends, and family members. Meets on the Monday of each month from 6:30pm-7:30pm at [facility] ([address]; [place] [address]). Contact Chela Nolan, at [phone] or [email or web address]. If you are outside of the [facility], contact The [place] Stroke Association at www.stroke.org or 1-113-1-STROKE or for support groups in your area. You may also refer to the Your Care after a Stroke education booklet at go.[facility].edu/qoow8824 for additional resources. * Medications* PATRIZIA Miner - 08/06/2024 8:38 AM EDT Know your medicines Make sure you know why you are taking each medicine. Make a master list of all your medicines. Write down the medicine names and doctors' names. Includedoses and side effects too. And write down why you take each medicine. Include all prescription bvajens-hqv-smwvljh medicines, vitamins, and supplements. Keep this list [...] plan your refills so that you can cook pickled meat all your medicines at the same time. [...] changed every 6 months. documented in this [facility]03-21-2025 History and physical note* PATRIZIA Lam - [...] Visual richards intact to confrontation. PERRL. 3mm sales engineer engineered products III, IV and : EOMI. No nystagmus. [...] SpO2 >92%; wean FiO2 as tolerated - [id number], encourage pulmonary toileting Cards: Essential HTN HLD [...] Yes [x] Family Engagement Primary Emergency Contact: AcunaIke evans, Last updated: 08/02 by surgical team [x] [...] the assigned neurocritical care provider (resident, fellow, RAWHIDE BONE ROLLER, orPA) or page/call the corresponding number below NCC1 (Beds 4454-9002): [place] # [phone], pager #[phone] NCC2 (Beds 5215-1652, 12 Nando, and overflow): [place] #: [phone], pager #[phone] Cosigned by Richard Mejia MD at 08/02/2024 11:14 PM EDT [facility] Nurse Note* Rachell Ruffin RN - 08/02/2024 3:13 PM EDT 9 cc air instilled in right radial TR band @ 1520. Glasses placed in bag wit label. Sent to PACU with patient on cart. documented [facility] this [facility] Discharge summary [facility] Medical Records Department [address] [place] [address] Emergency Department Summary 08/02/24 MR#: [id number] Acct: [id number] Name: LINDSAY ACUNA Rep #:[id number] : [...] the EMR. states they returned home from [facility] about 1.5-2 weeks ago, and they both had colds. He is better, but she is "on round 2." [facility] Medical History Paroxysmal atrial fibrillation with [...] 71.4 H Lymph % (Auto) 17.9 L Miner % (Auto) 8.9 Eos % (Auto) 1.0 [...] at 1250 hours. Reading Location: [facility] Head/Neck CTA 08/02/24 12:24 IMPRESSION: RIGHT CAROTID: Mild degree of calcific plaque at the origin of the right internal carotid artery. LEFT CAROTID: Mild degree of calcific plaque at the origin of the left internal carotid artery. VERTEBRALS: Dominant left vertebral artery INTRACRANIAL: Unremarkable Other impression: No significant stenosis seen. Reading Location: [facility] Rhythm Strip Rhythm Strip: A-fib Rate: 90 Ectopy: None EKG Initial EKG: Attestation: I personally reviewed and interpreted this EKG as follows: Interpretation: No Acute Injury Pattern, Atrial Fibrillation and Non-Specific ST Changes Management Discussion w/another healthcare provider: Air Export Operations Agent ([facility] stroke neurology) and Radiologist Stroke Documentation [...] Including time spent:, Discussing w/Patient &/or Family/Director Of Loss Prevention, Discussing w/Consultants, Arranging Admission or Transfer and [...] MD [Primary Care Provider] - Print Language: Liberian Disposition Disposition: Acute Care Hospital Discharge [facility] [place] What to do if you have Problems For any increased pain, shortness of breath, bleeding, nausea or vomiting, chestpain, or any unexpected problems, contact your Primary Care Provider. Call Doctors Registry ([phone]) or report tothe closest Emergency Room. Call 911 if necessary. 08/02/24 1316 Cosigner Signature (if applicable): CC: Dr. Kameron Caruso MD ~ Signed [facility]03-21-2025 Radiology Diagnostic study note [facility] Imaging Services [address] [place], [place] [id number] STROKE CTA Head AND Neck W/Con MR#: [id number] Acct: [id number] Name: LINDSAY ACUNA Rep #: [id number] : 1945 F 78 From: Regulo Hargrove MD PCP: Dr. Kameron Caruso MD Status: RE G ER Study:STROKE CTA Head AND Neck W/Con Date of Exam: 08/02/24 Exam# [id number] Ordering Dr: Roby Morgan MD PROCEDURE: STROKE [...] impression: No significant stenosis seen. Reading Location: [facility]1 CC: Dr. Pieter Morgan MD; Dr. Kameron Caruso MD ~ Technical Planner: Signed [facility]03-21-2025 Radiology Diagnostic study note [facility] Imaging Services [place], [place] [address] STROKE Brain/Head without Cont MR#: [id number] Acct: [id number] Name: LINDSAY ACUNA Rep #: [id number] : 1945 F 78 From: Shira Cardoso MD PCP: Dr. Kameron Caruso MD Status: RE G ER Study:STROKE Brain/Head without Cont Date of Exam: 08/02/24 Exam# [id number] Ordering Dr: Roby Morgan MD EXAM: CT [...] at 1250 hours. Reading Location: [facility] CC: Dr. Pieter Morgan MD; Dr. Kameron Caruso MD ~ Technical Planner: Signed [facility]02-19-2025 Telephone encounter Note* Telephone Encounter - Saurav, Mj, BILLIARD PLAYER.COMPUTER SUPPORT ANALYST - 07/03/2024 12:28 PM EST The following approved medication requests have been transmitted electronically. Requested Prescriptions Signed Prescriptions Disp Refills doxycycline monohydrate (MONODOX) 100 mg capsule 56 capsule 0 Sig: Take 1 capsule by mouth two times a day for 28 days. Authorizing Provider: MJ GLOVER APRN.CNP [facility]02-19-2025 Miscellaneous Notes* Telephone Encounter - Mj [...] calling: self Call patient at: on cell [phone] (home) [phone] (cell) Was an appointment scheduled: No Closing statement: Results or non-symptom based questions: Thank you for calling [facility], your call will be returned within the next business day. Katrina Coombs documented in this encounterDoctors Hospital02-19-2025 Telephone encounter Note * Telephone Encounter [...] calling: self Call patient at: on cell [phone] (home) [phone] (cell) Was an appointment scheduled: No Closing statement: Results or non-symptom based questions: Thank you for calling [facility], your call will be returned within the next business day. Katrina Malvin [facility]02-18-2025 Telephone encounter Note* Telephone Encounter - Katia Grullon RN - 07/02/2024 11:57 AM EST Patient calls and is requesting Cardiology referral to be faxed to [facility]. Faxed referral as requested. Katia Grullon RN [facility]02-18-2025 Miscellaneous Notes* Telephone Encounter - Katia Grullon RN - 07/02/2024 11:57 AM EST Patient calls and is requesting Cardiology referral to be faxed to [facility]. Faxed referral as requested. Katia Grullon RN documented in this encounterDoctors Hospital02-17-2025 Telephone encounter Note * Telephone Encounter - Bret Arambula LPN - 07/01/2024 12:39 PM EST Patient notified of Rx, verbalizes understanding of instructions. Bret Arambula LPN [facility]02-17-2025 Miscellaneous Notes* Telephone Encounter - Bret [...] calling: self Call patient at: on cell [phone] (home) [phone] (cell) Was an appointment scheduled: Leslie Swanson documented in this encounterDoctors Hospital02-17-2025 Telephone encounter Note * Telephone Encounter [...] 7 days. Authorizing Provider: MJ GLOVER APRN.CNP [facility]02-14-2025 Telephone encounter Note* Telephone Encounter - Adenike Walton MA - 06/28/2024 3:08 PM EST Please review pt message and advise. Adenike Walton MA [facility]02-14-2025 Telephone encounter Note* Telephone Encounter - [...] calling: self Call patient at: on cell [phone] (home) [phone] (cell) Was an appointment scheduled: No Goldie Swanson [facility]02-12-2025 Instructions* Patient Instructions* Emma Sotomayor APRN.CNP - 06/26/2024 10:00 AM EST Recommend consult with cardiology Continue to take all medication as prescribed Get repeat thyroid labs when you get back from vacation Contact the office with preferred malaria medication Follow up in 6 months. documented in this encounterDoctors Hospital02-12-2025 History of Present illness Narrative* Emma [...] APRN.CNP This note was partially generated using [employer] recognition system. Note was reviewed for accuracy. There may be minor misspellings or grammar miscues with [employer] voice recognition. documented in this encounterDoctors Hospital02-12-2025 NoteHNO ID: [id number] Author: EMMA SOTOMAYOR APRN.CNP Service: ? Author [...] times daily Dx: E11.29 Insulin: No lancets (Concurix CorporationTOUCH DELICA PLUS LANCET) 30 gauge Test blood [...] heartburn o (more content not included)...[facility]02-10-2025 Telephone encounter Note* Telephone Encounter - Kameron Caruso MD - 06/24/2024 7:26 PM EST Noted Kameron Caruso MD [facility]02-10-2025 Miscellaneous Notes* Telephone Encounter - Kameron Caruso MD - 06/24/2024 7:26 PM EST Noted Kameron Caruso MD * Telephone Encounter - Katia Grullon RN - 06/24/2024 1:20 PM EST Patient calls and states that she is going to be going to [facility] and will need medications for Malaria Patient does have appointment with provider tomorrow, but wanted to give provider heads up that she will be needing this. Katia Grullon RN documented in this encounterDoctors Hospital02-10-2025 Telephone encounter Note * Telephone Encounter - Katia Grullon RN - 06/24/2024 1:20 PM EST Patient calls and states that she is going to be going to [facility] and will need medications for Malaria Patient does have appointment with provider tomorrow, but wanted to give provider heads up that she will be needing this. Katia Grullon RN [facility]01-28-2025 Telephone encounter Note* Telephone Encounter - Naima Marshall RN - 06/11/2024 4:17 PM EST Pt called and is notified of providers results and instructions. Pt voices understanding. Naima Marshall RN [facility]01-28-2025 Miscellaneous Notes* Telephone Encounter - Naima Marshall RN - 06/11/2024 4:17 PM EST Pt called and is notified of providers results and instructions. Pt voices understanding. Naima Marshall RN * Telephone Encounter - Kameron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 Wellness examination documented [facility]* Diagnosis Type 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, unspecified CKD stage, unspecified whether long chain quiller tender insulin use (HCC) documented in this encounter [facility] note* Diagnosis Allergic contact dermatitis due to plant- Primary Contact dermatitis and other eczema due to plants (except food) documented in this encounter [facility] note* Diagnosis Rash- Primary Rash and other nonspecific skin eruption documented in this encounter [facility] note* Diagnosis Type 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, unspecified CKD stage, unspecified whether senior care insulin use (HCC)- Primary Essential hypertension, benign Chronic kidney disease, stage 3a (HCC) Hyperlipidemia, unspecified hyperlipidemia type Hypothyroidism, unspecified type Edema of left lower leg Memory loss documented in this encounter [facility] note* Diagnosis Essential hypertension, benign- [...] unspecified type (HCC) documented in this encounter [facility] note* Diagnosis Atrial fibrillation, unspecified type (HCC)- Primary Hypothyroidism, unspecified type Need for malaria prophylaxis documented in this encounter [facility] note* Diagnosis History of traveler's diarrhea- Primary Personal history of other diseases of digestive system documented in this encounter [facility] note* Diagnosis History of traveler's diarrhea Personal history of other diseases of digestive system documented in this encounter [facility] noteNo assessment information [facility]WMer[facility] Work Phone: Evaluation note* Diagnosis Acute ischemic right MCA stroke- Primary Unspecified cerebral artery occlusion with cerebral infarction Cerebrovascular accident (CVA), unspecified mechanism Renal disease (High Serum Creatinine) Unspecified disorder of kidney and ureter Type 2 diabetes mellitus with hyperglycemia Type II or unspecified type diabetes mellitus without mention of complication, not stated as uncontrolled [facility] Narrative No data available for this section [place] Reason for referral (narrative)* Outpatient Procedure (Routine) - Pending Review Specialty Diagnoses / Procedures Referred By Qiana almodovar Referred To Contact [facility] Diagnoses Atrial fibrillation, unspecified type (HCC) Procedures ECHO ECHO TTHRC R-T 2D W/WOM-MODE COMPL SPEC&COLR D Kameron Caruso MD [address] [place] [address] [address] Referral ID Status Reason Start Date Expiration Date Visits Requested Visits Authorized [id number] Pending Review Auto-Generat ed Referral 05/31/2024 05/31/2025 1 1 * Outpatient Procedure (Routine) - New Request Specialty Diagnoses / Procedures Referred By Qiana almodovar Referred To Contact [facility] Diagnoses Irregular heart beat Procedures ECG COMPLETE ECG ROUTINE ECG W/LEAST 12 LDS W/I&R Kameron Caruso MD [address] [place] [address] [address] [place] [address] Referral ID Status Reason Start Date Expiration Date Visits Requested Visits Authorized [id number] New Request Auto-Generat ed Referral 05/31/2024 05/31/2025 1 1 [facility]No reason for referral information availableWMer[facility] Work Phone: Reason for visit Narrative* Auth/Cert Specialty Diagnoses / Procedures Referred By Qiana almodovar Referred To Contact Diagnoses Acute ischemic right MCA stroke Cerebrovascular Accident (Level A Ishemic Stroke) Prema Rodgers MD [address] [place] [address] Phone: tel: fax: [facility] [address] [place] [address] Referral ID Status Reason Start Date Expiration Date Visits Re quested Visits Authorized [id number] 1 1 [facility] Summary Purpose Family History No Family History Records Found Relationship Condition Age at Onset Recorded Date/T monse mother Diabetes mellitus Unknown Hypertension Unknown Psychiatric disorder Unknown grandmother Malignant neoplasm Unknown sister Disorder of thyroid Unknown Advance Directives No Advanced Directives Records FoundDocuments on File Type Date Recorded Patient Musical Instrument Supervisor 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 Advance Directives and Living Will Power of Autoclave Operator Latest Code Status on File Code Status Date Activated Date Inactivated Comments Full Code 01/09/2019 10:16 AM Latest Code Status on File Code Status Date Activated Date Inactivated Comments Full Code 10/16/2019 9:16 AM Full Code 01/09/2019 10:16 AM 01/09/2019 2:23 PM Documents on File Type Date Recorded Patient Musical Instrument Supervisor 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 Advance Directive(s) 11/07/2018 6:45 AM Advance Directive(s) 09/29/2015 10:09 PM Advance Directive Response Recorded Date/ Time Living Will No August 02, 2024 12:46pm Do you have a Healthcare Power of Autoclave Operator? No August 02, 2024 12:46pm Date Activated [...] patient had a polyp identified by on {time:56471}. Biopsies {are/were w not:9034} taken. The patient's usual bowel pattern is {bowel pattern:99956}. Bowel movements {bowel changes:16411} . {abd pain:23503}. The patient has noted{bleeding with BM:44564}. The patient {does/do/not:76221} have a family history of colon polyps. The patient {does/do/not:64639} have a family history of colon cancer. [...] MONTHLY EXAM October 09, 2024 5:45p m [facility] October 15, 2024 5:0 0am [facility] October 22, 2024 5: 00am [facility] October 23, 2024 5: 00am [facility] WORK October 29, 2024 5: 00am [...] WORK October 01, 2024 5:00a m AFIB ([facility]) October 02, 2024 9:29a m LAB WORK October 08, 2024 5:00a m MONTHLY EXAM October 09, 2024 5:45p m [facility] WORK October 15, 2024 5:0 0am [facility] WORK October 22, 2024 5: 00am [facility] WORK October 23, 2024 5: 00am [facility] WORK October 29, 2024 5: 00am NEW CONCERN October 30, 2024 6:00 pm [facility] WORK November 12, 2024 5:0 0am [...] WORK October 01, 2024 5:00a [facility] October 02, 2024 9:29a m LAB WORK October 08, 2024 5:00a m MONTHLY EXAM October 09, 2024 5:45p m [facility] WORK October 15, 2024 5:0 0am [facility] WORK October 22, 2024 5: 00am NEW CONCERN October 22, 2024 12:4 5pm [facility] WORK October 23, 2024 5: 00am [facility] WORK October 29, 2024 5: 00am NEW CONCERN October 30, 2024 6:00 pm [facility] WORK November 12, 2024 5:0 0am [...] WORK October 01, 2024 5:00a [facility] October 02, 2024 9:29a m LAB WORK October 08, 2024 5:00a m MONTHLY EXAM October 09, 2024 5:45p m [facility] WORK October 15, 2024 5:0 0am [facility] WORK October 22, 2024 5: 00am NEW CONCERN October 22, 2024 12:4 5pm [facility] WORK October 23, 2024 5: 00am [facility] WORK October 29, 2024 5: 00am FU VISIT October 29, 2024 7:15 pm NEW CONCERN October 30, 2024 6:00 pm [facility] WORK November 12, 2024 5:0 0am Chief Complaint Admit Date LAB WORK September 10, 2024 5:0 0am ADMISSION EXAM September 10, 2024 12: 49pm ADMISSION EXAM September 11, 2024 3:0 8pm LAB WORK September 17, 2024 5:00am LABWORK September 24, 2024 5:00a m LAB WORK September 29, 2024 5:44p m LAB WORK October 01, 2024 5:00a m AFIB ([facility]) October 02, 2024 9:29a m LAB WORK October 08, 2024 5:00a m MONTHLY EXAM October 09, 2024 5:45p m [facility] WORK October 15, 2024 5:0 0am [facility] WORK October 22, 2024 5: 00am NEW CONCERN October 22, 2024 12:4 5pm [facility] WORK October 23, 2024 5: 00am [facility] WORK October 29, 2024 5: 00am FU VISIT October 29, 2024 7:15 pm NEW CONCERN October 30, 2024 6:00 pm [facility] WORK November 05, 2024 5: 00am [facility] WORK November 12, 2024 5:0 0am [facility] WORK November 19, 2024 4:0 0am New Concern November 20, 2024 10:49 am LABWORK November 25, 2024 2:00 am [facility] WORK November 26, 2024 5: 20am [facility] WORK December 03, 2024 5: 00am Chief Complaint Admit Date LAB WORK September 10, 2024 5:0 0am ADMISSION EXAM September 10, 2024 12: 49pm ADMISSION EXAM September 11, 2024 3:0 8pm LAB WORK September 17, 2024 5:00am LABWORK September 24, 2024 5:00a m LAB WORK September 29, 2024 5:44p m LAB WORK October 01, 2024 5:00a [facility] October 02, 2024 9:29a m LAB WORK October 08, 2024 5:00a m MONTHLY EXAM October 09, 2024 5:45p m [facility] WORK October 15, 2024 5:0 0am [facility] WORK October 22, 2024 5: 00am NEW CONCERN October 22, 2024 12:4 5pm [facility] WORK October 23, 2024 5: 00am [facility] WORK October 29, 2024 5: 00am FU VISIT October 29, 2024 7:15 pm NEW CONCERN October 30, 2024 6:00 pm [facility] WORK November 05, 2024 5: 00am [facility] WORK November 12, 2024 5:0 0am [facility] WORK November 19, 2024 4:0 0am New Concern November 20, 2024 10:49 am LABWORK November 25, 2024 2:00 am [facility] WORK November 26, 2024 5: 20am New Concern November 28, 2024 4:43 pm [facility] WORK December 03, 2024 5: 00am Additional Source Comments INFORMATION SOURCE (unrecogn ized section and content) DATE CREATED AUTHOR 08/31/2018 [facility] ([place]) DATE CREATED AUTHOR AUTHOR'S ORGANIZ ATION 10/18/2019 [facility] DATE CREATED AUTHOR AUTHOR'S ORGANIZ ATION 08/04/2024 [facility] DATE CREATED AUTHOR AUTHOR'S ORGANIZ ATION 08/07/2024 [facility] DATE CREATED AUTHOR AUTHOR'S ORGANIZ ATION 09/01/2024 [facility] DATE CREATED AUTHOR AUTHOR'S ORGANIZ ATION 10/13/2024 [facility] DATE CREATED AUTHOR AUTHOR'S ORGANIZ ATION 11/08/2024 [facility] DATE CREATED AUTHOR AUTHOR'S ORGANIZ ATION 12/27/2024 [facility] Source Comments (unrecognize d section and content) In the event this informatio n is protected by the Federal Confidentiality of Alcohol and Drug Abuse Patient Records regulations: The Federal rules restrict any use of the information to criminally investigate or prosecute any alcohol or drug abuse patient.[facility] HospitalIn the event this information is protected by the Federal Confidentiality of Alcohol and Drug Abuse Patient Records regulations: The Federal rules restrict any use of the information to criminally investigate or prosecute any alcohol or drug abuse patient.[facility] HospitalIn the event this information is protected by the Federal Confidentiality of Alcohol and Drug Abuse Patient Records regulations: The Federal rules restrict any use of the information to criminally investigate or prosecute any alcohol or drug abuse patient.[facility] HospitalIn the event this information is protected by the Federal Confidentiality of Alcohol and Drug Abuse Patient Records regulations: The Federal rules restrict any use of the information to criminally investigate or prosecute any alcohol or drug abuse patient.[facility] HospitalIn the event this information is protected by the Federal Confidentiality of Alcohol and Drug Abuse Patient Records regulations: The Federal rules restrict any use of the information to criminally investigate or prosecute any alcohol or drug abuse patient.[facility] HospitalIn the event this information is protected by the Federal Confidentiality of Alcohol and Drug Abuse Patient Records regulations: The Federal rules restrict any use of the information to criminally investigate or prosecute any alcohol or drug abuse patient.[facility] HospitalIn the event this information is protected by the Federal Confidentiality of Alcohol and Drug Abuse Patient Records regulations: The Federal rules restrict any use of the information to criminally investigate or prosecute any alcohol or drug abuse patient.[facility] HospitalIn the event this information is protected by the Federal Confidentiality of Alcohol and Drug Abuse Patient Records regulations: The Federal rules restrict any use of the information to criminally investigate or prosecute any alcohol or drug abuse patient.[facility] HospitalIn the event this information is protected by the Federal Confidentiality of Alcohol and Drug Abuse Patient Records regulations: The Federal rules restrict any use of the information to criminally investigate or prosecute any alcohol or drug abuse patient.[facility] HospitalIn the event this information is protected by the Federal Confidentiality of Alcohol and Drug Abuse Patient Records regulations: The Federal rules restrict any use of the information to criminally investigate or prosecute any alcohol or drug abuse patient.[facility] HospitalIn the event this information is protected by the Federal Confidentiality of Alcohol and Drug Abuse Patient Records regulations: The Federal rules restrict any use of the information to criminally investigate or prosecute any alcohol or drug abuse patient.[facility] HospitalIn the event this information is protected by the Federal Confidentiality of Alcohol and Drug Abuse Patient Records regulations: The Federal rules restrict any use of the information to criminally investigate or prosecute any alcohol or drug abuse patient.[facility] HospitalIn the event this information is protected by the Federal Confidentiality of Alcohol and Drug Abuse Patient Records regulations: The Federal rules restrict any use of the information to criminally investigate or prosecute any alcohol or drug abuse patient.[facility] HospitalIn the event this information is protected by the Federal Confidentiality of Alcohol and Drug Abuse Patient Records regulations: The Federal rules restrict any use of the information to criminally investigate or prosecute any alcohol or drug abuse patient.[facility] HospitalIn the event this information is protected by the Federal Confidentiality of Alcohol and Drug Abuse Patient Records regulations: The Federal rules restrict any use of the information to criminally investigate or prosecute any alcohol or drug abuse patient.[facility] HospitalIn the event this information is protected by the Federal Confidentiality of Alcohol and Drug Abuse Patient Records regulations: The Federal rules restrict any use of the information to criminally investigate or prosecute any alcohol or drug abuse patient.[facility] HospitalIn the event this information is protected by the Federal Confidentiality of Alcohol and Drug Abuse Patient Records regulations: The Federal rules restrict any use of the information to criminally investigate or prosecute any alcohol or drug abuse patient.[facility] HospitalIn the event this information is protected by the Federal Confidentiality of Alcohol and Drug Abuse Patient Records regulations: The Federal rules restrict any use of the information to criminally investigate or prosecute any alcohol or drug abuse patient.[facility] HospitalIn the event this information is protected by the Federal Confidentiality of Alcohol and Drug Abuse Patient Records regulations: The Federal rules restrict any use of the information to criminally investigate or prosecute any alcohol or drug abuse patient.[facility] HospitalIn the event this information is protected by the Federal Confidentiality of Alcohol and Drug Abuse Patient Records regulations: The Federal rules restrict any use of the information to criminally investigate or prosecute any alcohol or drug abuse patient.[facility] HospitalIn the event this information is protected by the Federal Confidentiality of Alcohol and Drug Abuse Patient Records regulations: The Federal rules restrict any use of the information to criminally investigate or prosecute any alcohol or drug abuse patient.[facility] HospitalIn the event this information is protected by the Federal Confidentiality of Alcohol and Drug Abuse Patient Records regulations: The Federal rules restrict any use of the information to criminally investigate or prosecute any alcohol or drug abuse patient.[facility] HospitalIn the event this information is protected by the Federal Confidentiality of Alcohol and Drug Abuse Patient Records regulations: The Federal rules restrict any use of the information to criminally investigate or prosecute any alcohol or drug abuse patient.[facility] HospitalIn the event this information is protected by the Federal Confidentiality of Alcohol and Drug Abuse Patient Records regulations: The Federal rules restrict any use of the information to criminally investigate or prosecute any alcohol or drug abuse patient.[facility] HospitalIn the event this information is protected by the Federal Confidentiality of Alcohol and Drug Abuse Patient Records regulations: The Federal rules restrict any use of the information to criminally investigate or prosecute any alcohol or drug abuse patient.[facility] HospitalIn the event this information is protected by the Federal Confidentiality of Alcohol and Drug Abuse Patient Records regulations: The Federal rules restrict any use of the information to criminally investigate or prosecute any alcohol or drug abuse patient.[facility] HospitalIn the event this information is protected by the Federal Confidentiality of Alcohol and Drug Abuse Patient Records regulations: The Federal rules restrict any use of the information to criminally investigate or prosecute any alcohol or drug abuse patient.[facility] HospitalIn the event this information is protected by the Federal Confidentiality of Alcohol and Drug Abuse Patient Records regulations: The Federal rules restrict any use of the information to criminally investigate or prosecute any alcohol or drug abuse patient.[facility] Reason for Visit (unrecogniz ed section [...] Comments request for medication Reason Comments [facility] requesting verbal agree to f [facility] Care Teams (unrecognized sec tion and content) Director Treasurer Relationship Specialty Start Date End Date Kameron Caruso MD [address] [place], [place] [id number] PCP - General Family Practice 09/21/15 Director Treasurer Relationship Specialty Start Date End Date Kameron Caruso MD [address] [place], [place] [id number] PCP - General Family Practice 09/21/15 Director Treasurer Relationship Specialty Start Date End Date Kameron Caruso MD [address] [place], [place] [id number] PCP - General Family Practice 09/21/15 Director Treasurer Relationship Specialty Start Date End Date Kameron Caruso MD [address] [place] [address] PCP - General Family Practice 09/21/15 Director Treasurer Relationship Specialty Start Date End Date Kameron Caruso MD [address] [place] [address] PCP - General Family Practice 09/21/15 Director Treasurer Relationship Specialty Start Date End Date Kameron Caruso MD [address] [place] [address] PCP - General Family Practice 09/21/15 Director Treasurer Relationship Specialty Start Date End Date Kameron Caruso MD [address] [place] [address] PCP - General Family Medicine 09/21/15 Director Treasurer Relationship Specialty Start Date End Date Kameron Caruso MD [address] [place] [address] PCP - General Family Medicine 09/21/15 Director Treasurer Relationship Specialty Start Date End Date Kameron Caruso MD [address] [place] [address] PCP - General Family Medicine 09/21/15 Director Treasurer Relationship Specialty Start Date End Date Kameron Caruso MD [address] [place] [address] PCP - General Family Medicine 09/21/15 Director Treasurer Relationship Specialty Start Date End Date Kameron Caruso MD [address] [place] [address] PCP - General Family Medicine 09/21/15 Director Treasurer Relationship Specialty Start Date End Date Kameron Caruso MD [address] [place] [address] PCP - General Family Medicine 09/21/15 Director Treasurer Relationship Specialty Start Date End Date Kameron Caruso MD [address] [place] [address] PCP - General Family Medicine 09/21/15 Director Treasurer Relationship Specialty Start Date End Date Kameron Caruso MD [address] [place] [address] PCP - General Family Medicine 09/21/15 Director Treasurer Relationship Specialty Start Date End Date Kameron Caruso MD [address] [place] [address] PCP - General Family Medicine 09/21/15 Director Treasurer Relationship Specialty Start Date End Date Kameron Caruso MD [address] [place] [address] PCP - General Family Medicine 09/21/15 Emma Sotomayor, BILLIARD PLAYER.COMPUTER SUPPORT ANALYST [address] [place] [address] Linen Clerk Family Medicine 04/21/24 Mj Glover, BILLIARD PLAYER.COMPUTER SUPPORT ANALYST [address] [place] [address] Linen Clerk Family Medicine 04/30/24 Director Treasurer Relationship Specialty Start Date End Date Kameron Caruso MD [address] [place] [address] PCP - General Family Medicine 09/21/15 Emma Sotomayor, BILLIARD PLAYER.COMPUTER SUPPORT ANALYST [address] [place] [address] Linen Clerk Family Medicine 04/21/24 Mj Glover APRN.COMPUTER SUPPORT ANALYST [address] [place] [address] Linen Clerk Family Medicine 04/30/24 Director Treasurer Relationship Specialty Start Date End Date Kameron Caruso MD [address] [place] [address] PCP - General Family Medicine 09/21/15 Emma Sotomayor APRN.COMPUTER SUPPORT ANALYST [address] [place] [address] Linen Clerk Family Medicine 04/21/24 Mj Glover APRN.COMPUTER SUPPORT ANALYST [address] [place] [address] Linen Clerk Family Medicine 04/30/24 Director Treasurer Relationship Specialty Start Date End Date Kameron Caruso MD [address] [place] [address] PCP - General Family Medicine 09/21/15 Emma Sotomayor APRN.COMPUTER SUPPORT ANALYST [address] [place] [address] Linen Clerk Family Medicine 04/21/24 Mj Glover APRN.COMPUTER SUPPORT ANALYST [address] [place] [address] Linen Clerk Family Medicine 04/30/24 Director Treasurer Relationship Specialty Start Date End Date Kameron Caruso MD [address] [place] [address] PCP - General Family Medicine 09/21/15 Emma Sotomayor APRN.COMPUTER SUPPORT ANALYST [address] [place] [address] Linen Clerk Family Medicine 04/21/24 Mj Glover APRN.COMPUTER SUPPORT ANALYST [address] [place] [address] Linen Clerk Family Medicine 04/30/24 Director Treasurer Relationship Specialty Start Date End Date Kameron Caruso MD [address] [place] [address] PCP - General Family Medicine 09/21/15 Emma Sotomayor APRN.COMPUTER SUPPORT ANALYST [address] [place] [address] Linen Clerk Family Medicine 04/21/24 Mj Glover APRN.COMPUTER SUPPORT ANALYST [address] [facility] [address] Linen Clerk Family [facility] 04/30/24 Director Treasurer Relationship Specialty Start Date End Date Kameron Caruso MD [address] [facility] [address] PCP - General Family Medicine 09/21/15 Emma Sotomayor APRN.COMPUTER SUPPORT ANALYST [address] [place] [address] Linen Clerk Family Medicine 04/21/24 Mj Glover APRN.COMPUTER SUPPORT ANALYST [address] [place] [address] Linen Clerk Family [facility] 04/30/24 Team Status: Active Member Role Status Dates Dr. Kameron Caruso MD Primary Care Provider Active Team Status: Inactive Member Role Status Dates Dr. Kameron Caruso MD Primary Care Provider Active Start: August 02, 2024 End: August 02, 2024 Dr. Pieter Morgan MD Emergency Provider Active Start: August 02, 2024 End: August 02, 2024 Director Treasurer Relationship Specialty Start Date End Date Kameron Caruso MD [address] [place] [address] PCP - General Family Medicine 08/03/24 Director Treasurer Relationship Specialty Start Date End Date Kameron Caruso MD [address] [place] [address] PCP - General Family Medicine 09/21/15 Emma Sotomayor, BILLIARD PLAYER.COMPUTER SUPPORT ANALYST [address] [place] [address] Linen Clerk Family Medicine 04/21/24 Mj Glover, BILLIARD PLAYER.COMPUTER SUPPORT ANALYST [address] [place] [address] Linen Clerk [facility] Medicine 04/30/24 Team Status: Inactive Member Role [...] 2024 End: September 11, 2024 Bret Snyder RAWHIDE BONE ROLLER, RAWHIDE BONE ROLLER-C Attending Provider Active Start: September 11, 2024 [...] 2024 End: October 09, 2024 Bret Snyder RAWHIDE BONE ROLLER, RAWHIDE BONE ROLLER-C Attending Provider Active Start: October 09, 2024 [...] 2024 End: October 30, 2024 Bret Snyder RAWHIDE BONE ROLLER, RAWHIDE BONE ROLLER-C Attending Provider Active Start: October 30, 2024 [...] End: October 22, 2024 Bret Snyder NP, RAWHIDE BONE ROLLER-C Attending Provider Active Start: October 22, 2024 [...] 2024 End: October 30, 2024 Bret Snyder RAWHIDE BONE ROLLER, RAWHIDE BONE ROLLER-C Attending Provider Active Start: October 30, 2024 [...] End: October 30, 2024 Bret Snyder NP RAWHIDE BONE ROLLER-C Attending Provider Active Start: October 30, 2024 [...] Active Start: November 26, 2024 Team Status: Active Member Role/Relationship Status [...] End: September 11, 2024 Bret Snyder NP, RAWHIDE BONE ROLLER-C Attending Provider Active Start: September 11, 2024 [...] End: October 09, 2024 Bret Snyder NP, RAWHIDE BONE ROLLER-C Attending Provider Active Start: October 09, 2024 [...] Active Start: October 22, 2024 Team Status: Inactive Member Role/Relationship Status Dates Dr. Kameron Caruso MD Primary Care Provider Active Start: October 22, 2024 End: October 22, 2024 Bret Snyder NP, RAWHIDE BONE ROLLER-C Attending Provider Active Start: October 22, 2024 End: October 22, 2024 Team Status: Inactive Member Role/Relationship Status Dates Dr. Kameron Caruso MD Primary Care Provider Active Start: October 29, 2024 End: October 29, 2024 Dr. Safia Ruelas MD Attending Provider Active Start: October 29, 2024 End: October 29, 2024 Team Status: Active Member Role/Relationship Status Dates Dr. Kameron Caruso MD Primary Care Provider Active Start: November 19, 2024 Safia VARGAS MD Attending Provider Active Start: November 19, 2024 Safia VARGAS MD Referring Provider Active Start: November 19, 2024 Team Status: Inactive Member Role/Relationship Status Dates Dr. Kameron Caruso MD Primary Care Provider Active Start: November 20, 2024 End: November 20, 2024 Bret Snyder RAWHIDE BONE ROLLER, RAWHIDE BONE ROLLER-C Attending Provider Active Start: November 20, 2024 End: November 20, 2024 Team Status: Active Member Role/Relationship Status Dates Dr. Kameron Caruso MD Primary Care Provider Active Start: November 26, 2024 Safia VARGAS MD Attending Provider Active Start: November 26, 2024 Safia VARGAS MD Referring Provider Active Start: November 26, 2024 Team Status: Active Member Role/Relationship Status Dates Dr. Kameron Caruso MD Primary Care Provider Active Start: December 03, 2024 Safia VARGAS MD Attending Provider Active Start: December 03, 2024 Team Status: Active Member Role/Relationship Status Dates Dr. Kameron Caruso MD Primary Care Provider Active Start: December 10, 2024 Safia VARGAS MD Attending Provider Active Start: December 10, 2024 Team Status: Active Member Role/Relationship Status Dates Dr. Kameron Caruso MD Primary Care Provider Active Start: December 17, 2024 Safia VARGAS MD Attending Provider Active Start: December 17, 2024 Team Status: Active Member Role/Relationship Status Dates Dr. Kameron Caruso MD Primary Care Provider Active Start: December 24, 2024 Safia VARGAS MD Attending Provider Active Start: December 24, 2024 Team Status: Inactive Member Role/Relationship Status Dates Dr. Kameron Caruso MD Primary Care Provider Active Start: November 28, 2024 End: November 28, 2024 Bret Snyedr RAWHIDE BONE ROLLER, RAWHIDE BONE ROLLER-C Attending Provider Active Start: November 28, 2024 End: November 28, 2024 Team Status: Active Member Role/Relationship Status Dates Dr. Kameron Caruso MD Primary Care Provider Active Start: December 03, 2024 Safia VARGAS MD Attending Provider Active Start: December 03, 2024 Team Status: Active Member Role/Relationship Status Dates Dr. Kameron Caruso MD Primary Care Provider Active Start: December 10, 2024 Safia VARGAS MD Attending Provider Active Start: December 10, 2024 Team Status: Active Member Role/Relationship Status Dates Dr. Kameron Caruso MD Primary Care Provider Active Start: December 17, 2024 Safia VARGAS MD Attending Provider Active Start: December 17, 2024 Team Status: Active Member Role/Relationship Status Dates Dr. Kameron Caruso MD Primary Care Provider Active Start: December 24, 2024 Safia VARGAS MD Attending Provider Active Start: December 24, 2024 (unrecognized sect ion and content) No [...] BEDTIME, First dose (after last modification) on 4/1/25 at 2100, Until Discontinued 1946 (Given - [...] modification) on 08/10/24 at 0900, Until Discontinued 09 (Given - [...] Eng RN) 0113 (Given - Provider: Shaila Eng, [...] 50% needed, contact pharmacy or obtain from [facility] cart ++ diphenhydrAMINE (BENADRYL) tablet 25 mg [...] glucose is greater than 200mg/dl, then notify fun house operator. And BLOOD GLUCOSE (POC DEVICE) (CANCELED) [...] 50% needed, contact pharmacy or obtain from [facility] cart ++ And glucose (GLUTOSE) 40 % [...] at 1301, Until Specified, Who to Notify: Ad Copy Writer, For all Blood Glucose LESS THAN 80 mg/dl, notify Ad Copy Writer after treatment per Hypoglycemia in Non- Adults [...] BE BASED ON THE PRIMARY CLINICAL RECORDS. [facility]. provides no warranty or guarantee of the accuracy or completeness of information in this document.
[2024-12-31 07:16] LABS: Hematocrit 36.8 % (37-47); Hemoglobin 11.8 g/dL (12.0-15.0); Immature Granulocytes Count 0.020 X10^3/uL (0.0-0.0); Mean Corp Hgb Conc 32.1 g/dL (32-36); Mean Corpuscular Volume 91.3 fL (81-99); Mean Platelet Vol. 11.5 fl (6.2-12.0); NRBC Flagged by Analyzer 0 % (0-5); Platelet Count 232 K/mm3 (150-450); RBC Distribution Width CV 14.6 % (11.6-14.6); RBC Distribution Width SD 48.9 fl (35.1-43.9); Red Blood Count 4.03 M/mm3 (4.2-5.4); White Blood Count 6.9 K/mm3 (4.4-11.0)
[2024-12-31 07:32] LABS: Anion Gap 14 (5-15); BUN 10 mg/dL (4-19); BUN/Creat Ratio 15.0 RATIO (10-20); Calcium,Total 8.4 mg/dL (7.6-11.0); Carbon Dioxide 22.1 mmol/L (21.0-32.0); Chloride 103 mmol/L (98-108); Glucose 142 mg/dL (70-99); Potassium 3.5 mmol/L (3.3-5.1)
== END ==
LOC: OLS.WHLTCC 04:00
PROVIDERS: PCP Family Medicine; Referring Provider Internal Medicine; Visit Provider Internal Medicine
DX: I10 Essential (primary) hypertension (principal); I69.354 Hemiplegia and hemiparesis following cerebral infarction affecting left non-dominant side; I69.391 Dysphagia following cerebral infarction; E11.9 Type 2 diabetes mellitus without complications
CPT/HCPCS: 36415; 80048; 83036; 85025

== ENCOUNTER → 2025-01-07 | Outpatient (REF) | payer MEDICARE, SELFPAY ==
--- OUTSIDE RECORDS SUMMARY | 2025-01-07 03:55 | XMS RPT_ITS | CCD ---
Author Organization [facility] Care Team Providers [place] Name Role Phone KETTY DOWNS Attending Unavailable [...] Kameron Caruso MD Primary Care Provider Светлана FAMILY MEMBER CARETAKER.Emma TUCKER Unavailable Saurav FAMILY MEMBER CARETAKER.Mj TUCKER Unavailable JUVENTINO ROGERS Attending Unavailable JUVENTINO ROGERS Admitting Unavailable CATA ALFRED Attending Unavailable CATA ALFRED Admitting Unavailable Dr. Kameron Caruso MD Primary Care Provider [phone] Dr. Pieter Morgan MD Emergency Provider Kameron Caruso MD Primary Care Provider Светлана FAMILY MEMBER CARETAKER.Emma TUCKER Unavailable Unavail able KAMERON CARUSO Referring Unavailable KAMERON CARUSO Primary Care Unavailable KAMERON CARUSO Attending Unavailable KAMERON CARUSO Primary Care Unavailable EMMA SOTOMAYOR Attending Unavailable ZULY, KAMERON Beebe Primary Care Unavailable ELDERBROCK, KAMERON Beebe Primary Care Unavailable ELDERBROCK, KAMERON Beebe Primary Care Unavailable ELDERBROCK, KAMERON Beebe Referring Unavailable ELDERBROCK, KAMERON Beebe Primary Care Unavailable ELDERBROCK, KAMERON Beebe Attending Unavailable ELDERBROCK, KAMERON Beebe Primary Care Unavailable ELDERBROCK, KAMERON Beebe Referring Unavailable ELDERBROCK, KAMERON Beebe Primary Care Unavailable ZULY, KAMERON Beebe Attending Unavailable ZULY, KAMERON Beebe Primary Care Unavailable ZULY LAWSON, DR MELO Primary Care Physician Cathy LAWSON, Dr. Stapleton Attending Provider Safia Ruelas MD Attending Provider UnavailDr. Kameron Marquez MD Referring Provider Makayla LAWSON, Dr. Barker Attending Provider [phone] ZULY LAWSON, DR MELO Primary Care Unavailab le DAE PALMER, SILVINO Admitting Unavailable SCHEATZSHITAL DO, SILVINO Attending Unavailable BRYON LAWSON, DR REECE Consulting Unavailab shital HUTTON DO, NANDO Consulting Unavailable SUDARSHAN ARTN-GAUGE INSPECTOR, AMI Hwang Consulting Unavaila ari GIBSON PhD, MATTHEW Zamudio Consulting Unavailable CHRISTOS VOSS Attending Unavailable CONSULT, GASTROENTEROLOGY Consulting PIETER Wolf Referring Unavailable PREMA RAMOS Admitting Unavailable ZULY, KAMERON Beebe Primary Care Unavailable RICHARD MEJIA Referring Unavailable LUCINDA PEACOCK Attending Unavailable LUCINDA PEACOCK Admitting Unavailable Jessenia LAWSON, Dr. Baig Attending Provider Claudio CASH-Bret Rankin Attending Provider Safia Ruelas MD Referring Provider UnavailDr. Kameron Marquez MD Primary Care Provider Safia Ruelas MD Attending Provider UnavailDr. Safia Ulloa MD Attending Provider Bret Arciniega Attending Provider Safia Ruelas MD Referring Provider UnavailDr. Kameron Marquez MD Referring Provider Makayla LAWSON, Dr. Barker Attending Provider Oleghe OLS, Efewongbe Attending Unavailabl e [place], [...] Unavailable [place], Kameron Primary Care Unavailable [place] CUTTER OPERATOR BRICK, Bret Attending Unavailable Oleghe, Efewongbe Attending Unavailable [place], Kameron Primary Care Unavailable [place] CUTTER OPERATOR BRICK, Bret Attending Unavailable [place], Kameron Primary Care Unavailable [place], Kameron Primary Care Unavailable [place] CUTTER OPERATOR BRICK, Bret Attending Unavailable [place], Kameron Primary Care Unavailable Oleghe, Efewongbe Attending Unavailable [facility], Kameron Primary Care Unavailable Oleghe OLS, Efewongbe Attending Unavailke Snyder CUTTER OPERATOR BRICK, Bret Attending Unavailable [facility], Kameron Primary Care Unavailable Claudio CUTTER OPERATOR BRICK, Bret Attending Unavailable [facility], Kameron Primary Care Unavailable [facility], Kameron Referring Unavailable Makayla, Kelley Attending Unavailable [facility], Kameron Primary Care Unavailable [facility], Kameron Primary Care Unavailable Claudio CUTTER OPERATOR BRICK, Bret Attending Unavailable Oleghe OLS, Efewongbe Referring Unavailabl e Oleghe OLS, Efewongbe Attending Unavailabl e [facility], Kameron Primary Care Unavailable Allergies Allergy Classification Reported Allergen(s) Allergy Type Date of Onset Reaction(s) Facility (2 sources) Sulfonamides (Antibiotic) Propensity to adverse reactions to drug 6 Other (See Comments) [place] (2 sources) Other Propensity to adverse reactions 6 Shortness Of Breath [place], [place] (20 sources) Benzocaine; Translations: [BENZOCAINE] Drug Allergy 6 Rash [facility] Work Phone: (20 sources) Cocaine; Translations: [COCAINE] Drug Allergy 9 Inverted T waves [facility] Work Phone: (20 sources) Sulfonamides (Antibiotic); Translations: [SULFA (SULFONAMIDE ANTIBIOTICS)] Propensity to adverse reactions 6 Intolerance [facility] Work Phone: (20 sources) Perfumes; Translations: [PERFUMES] Propensity to adverse reactions 6 Shortness of Breath [facility] Work Phone: (8 sources) Sulfonamides (Antibiotic) Allergy to substance 5 Unknown [facility] (10 sources) perfume; Translations: [perfume] Allergy to substance 5 Shortness of breath [facility] (1 source) Cocaine; Translations: [cocaine nasal] Drug Allergy [facility] (1 source) Codeine; Translations: [codeine] Drug Allergy Pharyngeal swelling (finding) [facility] (1 source) Sulfonamide; Translations: [sulfa drugs] Drug allergy [facility] (1 source) Benzocaine Drug Allergy 5 [facility] (1 source) Cocaine Drug Allergy 5 [facility] (1 source) Sulfonamides (Antibiotic) Drug allergy (disorder) 5 [facility] Medications Current Medications Medication [...] kidney disease, unspecified CKD stage, 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 insulin use (HCC) , Type 2 diabetes [...] kidney disease, unspecified CKD stage, unspecified whether assisted insulin use (HCC) Take 1 tablet by [...] capsules by m outh once daily sennosides, correction 8.6 mg oral tablet (2 sources) Start: 08-09-2024 End: 08-15-2024 Start: 08-04-2024 End: 08-09-2024 triamcinolone acetonide 0.31040 mg/mg topical ointment (3 sources) Corticosteroid Start: [...] glucose is greater than 200mg/dl, then notify rn house supervisor. [Order 2 End] [Order 3 Start] Name: [...] 50% needed, contact pharmacy or obtain from [facility] cart ++ [Order 5 End] [Order [...] at 1301, Until Specified, Who to Notify: Boiler Repair Supervisor, For all Blood Glucose LESS THAN 80 mg/dl, notify Boiler Repair Supervisor after treatment per Hypoglycemia in Non- Adults [...] Coronary arteriosclerosis; Translations: [Atherosclerotic heart disease of [place] coronary artery without angina pectoris] Onset: 5 [...] aftercare (8 sources) 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; Translations: [watermelon harvesting supervisor (current) use of anticoagulants] 08-02-2024 Episodic Other aftercare (1 source) halfway (current) use of aspirin; Translations: [halfway (current) use of aspirin] Onset: 5 Episodic Other aftercare (1 source) watermelon harvesting supervisor (current) use of anticoagulants; Translations: [halfway (current) use of anticoagulants] Onset: 5 Episodic Other aftercare (1 source) watermelon harvesting supervisor (current) use of oral hypoglycemic drugs; Translations: [watermelon harvesting supervisor (current) use of oral hypoglycemic drugs] [...] Onset: 5 Episodic Other upper respiratory infections (8 sources) [...] Auto (Unsp spec) [#/Vol] 2.54 10*3/uL 0.83-4.51 [facility] Anion gap in Serum or Plasma Ordered By: Safia Ruelas on 12-24-2024 Anion gap [Moles/Vol] 14 mmol/L 5-15 [facility] [place] Automated lymphocyte count a s percentage of total leukocytesOrdered By: Safia Ruelas on 12-24-2024 Lymphocytes/100 WBC Auto (Unsp spec) 28.0 % 19-41 [facility] BUN/creatinine ratioOrdered By: Safia Ruelas on 12-24-2024 Urea nitrogen/Creatinine [Mass ratio] 18.4 mg/mg 10-20 [facility] Basophil percentageOrdered B y: Safia Ruelas on 12-24-2024 Basophils/100 WBC (Bld) 0.8 % 0-1 [facility] Carbon dioxide, total [Moles /volume] in Central venous bloodOrdered By: Safia Ruelas on 12-24-2024 CO2 [Moles/Vol] 22.1 mmol/L 21.0-32.0 [facility] Chloride assayOrdered By: Balbir Ruelas on 12-24-2024 Chloride [Moles/Vol] 101 mmol/L 98-108 [facility] Eosinophil percentageOrdered By: Safia Ruelas on 12-24-2024 Eosinophils/100 WBC (Bld) 2.6 % 0-5 [facility] Erythrocyte distribution wid th ratioOrdered By: Safia Ruelas on 12-24-2024 Erythrocyte distribution width (RBC) [Ratio] 14.4 % 11.6-14.6 [facility] Erythrocyte distribution wid th standard deviationOrdered By: Safia Ruelas on 12-24-2024 Erythrocyte distribution width (RBC) [Ratio] 48.8 fl High 35.1-43.9 [facility] Glomerular filtration rate ( GFR) estimation/1.73 sq m using serum, plasma, or whole bOrdered By: Safia Ruelas on 12-24-2024 GFR/1.73 sq M.predicted among non-blacks MDRD (S/P/Bld) [Vol rate/Area] 83 mL/min/{1.73_m2} >60 [facility] Hematocrit Auto (Bld) [Volum e fraction]Ordered By: Leonideslas vegasskye Ruelas on 12-24-2024 Hematocrit (Bld) [Volume fraction] 37.9 % 37-47 [facility] Hemoglobin measurementOrdere d By: Safia Ruelas on 12-24-2024 Hemoglobin (Bld) [Mass/Vol] 12.2 g/dL 12.0-15.0 [facility] Immature granulocytes/100 WB C Auto (Bld)Ordered By: Safia Ruelas on 12-24-2024 Immature granulocytes/100 WBC (Bld) 0.400 % 0.0-0.9 [facility] MCV (mean corpuscular volume ) determinationOrdered By: Safia Ruelas on 12-24-2024 MCV (RBC) [Entitic vol] 92.2 fL 81-99 [facility] Mean corpuscular hemoglobin (MCH) determinationOrdered By: Safia Ruelas on 12-24-2024 MCH (RBC) [Entitic mass] 29.7 pg 27.0-32.0 [facility] Monocyte percentageOrdered B y: Safia Ruelas on 12-24-2024 Monocytes/100 WBC (Bld) 8.7 % 0-10 [facility] Neutrophil percentageOrdered By: Safia Ruelas on 12-24-2024 Neutrophils/100 WBC (Bld) 59.5 % 47-70 [facility] Platelet countOrdered By: Balbir sherry Ruelas on 12-24-2024 Platelets (Bld) [#/Vol] 256 10*3/uL 150-450 [facility] Potassium measurement (mass/ volume)Ordered By: Safia Cheoquyen on 12-24-2024 Potassium (Unsp spec) [Mass/Vol] 3.4 mmol/L 3.3-5.1 [facility] RBC Auto (Bld) [#/Vol]Ordere d By: Safia Cheoquyen on 12-24-2024 RBC (Bld) [#/Vol] 4.11 10*6/uL Low 4.2-5.4 [facility] Serum creatinine measurement (mass/volume)Ordered By: Safia Cheoquyen on 12-24-2024 Creatinine [Mass/Vol] 0.73 mg/dL 0.70-1.20 [facility] [place] Serum glucose measurement (m ass/volume)Ordered By: Balbirjean mariedesireeskye Griderbonimelnaie on 12-24-2024 Glucose [Mass/Vol] 142 mg/dL High 70-99 [facility] Serum or plasma calcium dayna urement (mass/volume)Ordered By: Safia Cheoquyen on 12-24-2024 Calcium [Mass/Vol] 9.1 mg/dL 7.6-11.0 [facility] Serum or plasma urea nitroge n measurement (mass/volume)Ordered By: Bandarskye Griderbonimelanie on 12-24-2024 Urea nitrogen [Mass/Vol] 13 mg/dL 4-19 [facility] Sodium levelOrdered By: Leonides Ruelas on 12-24-2024 Sodium [Moles/Vol] 137 mmol/L 133-145 [facility] White blood cell (WBC) count Ordered By: Safia Cheoquyen on 12-24-2024 WBC (Bld) [#/Vol] 9.1 10*3/uL 4.4-11.0 [facility] Absolute lymphocyte countOrd ered By: Safia Cheobonimelanie on 12-17-2024 Lymphocytes Auto (Unsp spec) [#/Vol] 2.94 10*3/uL 0.83-4.51 [facility] Anion gap in Serum or Plasma Ordered By: Safia Ruelas on 12-17-2024 Anion gap [Moles/Vol] 15 mmol/L 5-15 [facility] [place] Automated lymphocyte count a s percentage of total leukocytesOrdered By: Safia Ruelas on 12-17-2024 Lymphocytes/100 WBC Auto (Unsp spec) 30.5 % 19-41 [facility] BUN/creatinine ratioOrdered By: Safia Ruelas on 12-17-2024 Urea nitrogen/Creatinine [Mass ratio] 23.4 mg/mg High 10-20 [facility] Basophil percentageOrdered B y: Safia Ruelas on 12-17-2024 Basophils/100 WBC (Bld) 0.7 % 0-1 [facility] Carbon dioxide, total [Moles /volume] in Central venous bloodOrdered By: Leonideslas vegasskye Ruelas on 12-17-2024 CO2 [Moles/Vol] 22.1 mmol/L 21.0-32.0 [facility] Chloride assayOrdered By: Balbir Ruelas on 12-17-2024 Chloride [Moles/Vol] 102 mmol/L 98-108 [facility] Eosinophil percentageOrdered By: sherry Ruelas on 12-17-2024 Eosinophils/100 WBC (Bld) 2.3 % 0-5 [facility] Erythrocyte distribution wid th ratioOrdered By: Safia Ruelas on 12-17-2024 Erythrocyte distribution width (RBC) [Ratio] 14.1 % 11.6-14.6 [facility] Erythrocyte distribution wid th standard deviationOrdered By: jean marielas vegasskye Ruelas on 12-17-2024 Erythrocyte distribution width (RBC) [Ratio] 47.3 fl High 35.1-43.9 [facility] Glomerular filtration rate ( GFR) estimation/1.73 sq m using serum, plasma, or whole bOrdered By: Safia Ruelas on 12-17-2024 GFR/1.73 sq M.predicted among non-blacks MDRD (S/P/Bld) [Vol rate/Area] 77 mL/min/{1.73_m2} >60 [facility] Hematocrit Auto (Bld) [Volum e fraction]Ordered By: Safia Ruelas on 12-17-2024 Hematocrit (Bld) [Volume fraction] 40.2 % 37-47 [facility] Hemoglobin measurementOrdere d By: Safia Ruelas on 12-17-2024 Hemoglobin (Bld) [Mass/Vol] 12.7 g/dL 12.0-15.0 [facility] Immature granulocytes/100 WB C Auto (Bld)Ordered By: Safia Ruelas on 12-17-2024 Immature granulocytes/100 WBC (Bld) 0.400 % 0.0-0.9 [facility] MCV (mean corpuscular volume ) determinationOrdered By: Safia Ruelas on 12-17-2024 MCV (RBC) [Entitic vol] 92.2 fL 81-99 [facility] Mean corpuscular hemoglobin (MCH) determinationOrdered By: Safia Ruelas on 12-17-2024 MCH (RBC) [Entitic mass] 29.1 pg 27.0-32.0 [facility] Monocyte percentageOrdered B y: Safia Ruelas on 12-17-2024 Monocytes/100 WBC (Bld) 8.6 % 0-10 [facility] Neutrophil percentageOrdered By: Safia Ruelas on 12-17-2024 Neutrophils/100 WBC (Bld) 57.5 % 47-70 [facility] Platelet countOrdered By: Balbir jean mariejosé antonio Ruelas on 12-17-2024 Platelets (Bld) [#/Vol] 287 10*3/uL 150-450 [facility] Potassium measurement (mass/ volume)Ordered By: Safia Ruelas on 12-17-2024 Potassium (Unsp spec) [Mass/Vol] 3.5 mmol/L 3.3-5.1 [facility] RBC Auto (Bld) [#/Vol]Ordere d By: Safia Ruelas on 12-17-2024 RBC (Bld) [#/Vol] 4.36 10*6/uL 4.2-5.4 [facility] Serum creatinine measurement (mass/volume)Ordered By: Safia Ruelas on 12-17-2024 Creatinine [Mass/Vol] 0.78 mg/dL 0.70-1.20 [facility] Serum glucose measurement (m ass/volume)Ordered By: Safia Ruelas on 12-17-2024 Glucose [Mass/Vol] 125 mg/dL High 70-99 [facility] Serum or plasma calcium dayna urement (mass/volume)Ordered By: Safia Ruelas on 12-17-2024 Calcium [Mass/Vol] 9.2 mg/dL 7.6-11.0 [facility] Serum or plasma urea nitroge n measurement (mass/volume)Ordered By: Safia Ruelas on 12-17-2024 Urea nitrogen [Mass/Vol] 18 mg/dL 4-19 [facility] Sodium levelOrdered By: Leonides jiménezradha Jessenia on 12-17-2024 Sodium [Moles/Vol] 139 mmol/L 133-145 [facility] White blood cell (WBC) count Ordered By: Safia Ruelas on 12-17-2024 WBC (Bld) [#/Vol] 9.6 10*3/uL 4.4-11.0 [facility] Absolute lymphocyte countOrd ered By: Safia Ruelas on 12-10-2024 Lymphocytes Auto (Unsp spec) [#/Vol] 2.59 10*3/uL 0.83-4.51 [facility] Anion gap in Serum or Plasma Ordered By: Safia Ruelas on 12-10-2024 Anion gap [Moles/Vol] 15 mmol/L 5-15 [facility] [place] Automated lymphocyte count a s percentage of total leukocytesOrdered By: Safia Ruelas on 12-10-2024 Lymphocytes/100 WBC Auto (Unsp spec) 30.2 % 19-41 [facility] BUN/creatinine ratioOrdered By: Safia Ruelas on 12-10-2024 Urea nitrogen/Creatinine [Mass ratio] 25.6 mg/mg High 10-20 [facility] Basophil percentageOrdered B y: Safia Ruelas on 12-10-2024 Basophils/100 WBC (Bld) 0.9 % 0-1 [facility] Carbon dioxide, total [Moles /volume] in Central venous bloodOrdered By: Safia Ruelas on 12-10-2024 CO2 [Moles/Vol] 21.7 mmol/L 21.0-32.0 [facility] Chloride assayOrdered By: Balbir Ruelas on 12-10-2024 Chloride [Moles/Vol] 101 mmol/L 98-108 [facility] Eosinophil percentageOrdered By: Safia Ruelas on 12-10-2024 Eosinophils/100 WBC (Bld) 1.9 % 0-5 [facility] Erythrocyte distribution wid th ratioOrdered By: sherry Ruelas on 12-10-2024 Erythrocyte distribution width (RBC) [Ratio] 13.7 % 11.6-14.6 [facility] Erythrocyte distribution wid th standard deviationOrdered By: Safia Ruelas on 12-10-2024 Erythrocyte distribution width (RBC) [Ratio] 46.8 fl High 35.1-43.9 [facility] Glomerular filtration rate ( GFR) estimation/1.73 sq m using serum, plasma, or whole bOrdered By: Safia Ruelas on 12-10-2024 GFR/1.73 sq M.predicted among non-blacks MDRD (S/P/Bld) [Vol rate/Area] 72 mL/min/{1.73_m2} >60 [facility] Hematocrit Auto (Bld) [Volum e fraction]Ordered By: Safia Ruelas 12-10-2024 Hematocrit (Bld) [Volume fraction] 38.8 % 37-47 [facility] Hemoglobin measurementOrdere d By: Safia Ruelas on 12-10-2024 Hemoglobin (Bld) [Mass/Vol] 12.3 g/dL 12.0-15.0 [facility] Immature granulocytes/100 WB C Auto (Bld)Ordered By: Safia Ruelas on 12-10-2024 Immature granulocytes/100 WBC (Bld) 0.500 % 0.0-0.9 [facility] MCV (mean corpuscular volume ) determinationOrdered By: Safia Ruelas 12-10-2024 MCV (RBC) [Entitic vol] 93.3 fL 81-99 [facility] Mean corpuscular hemoglobin (MCH) determinationOrdered By: Balbirsherry Ruelas on 12-10-2024 MCH (RBC) [Entitic mass] 29.6 pg 27.0-32.0 [facility] Monocyte percentageOrdered B y: Safia Ruelas on 12-10-2024 Monocytes/100 WBC (Bld) 8.2 % 0-10 [facility] Neutrophil percentageOrdered By: Balbirjean mariejosé antonio Cheobonimelanie on 12-10-2024 Neutrophils/100 WBC (Bld) 58.3 % 47-70 [facility] Platelet countOrdered By: Balbir sherry Cheobonimelanie on 12-10-2024 Platelets (Bld) [#/Vol] 247 10*3/uL 150-450 [facility] Potassium measurement (mass/ volume)Ordered By: Safia Ruelas on 12-10-2024 Potassium (Unsp spec) [Mass/Vol] 3.8 mmol/L 3.3-5.1 [facility] RBC Auto (Bld) [#/Vol]Ordere d By: Leonidesjosé antonio Cheoquyen on 12-10-2024 RBC (Bld) [#/Vol] 4.16 10*6/uL Low 4.2-5.4 [facility] Serum creatinine measurement (mass/volume)Ordered By: Safia Ruelas on 12-10-2024 Creatinine [Mass/Vol] 0.82 mg/dL 0.70-1.20 [facility] Serum glucose measurement (m ass/volume)Ordered By: Safia Ruelas on 12-10-2024 Glucose [Mass/Vol] 149 mg/dL High 70-99 [facility] Serum or plasma calcium dayna urement (mass/volume)Ordered By: Safia Ruelas on 12-10-2024 Calcium [Mass/Vol] 9.1 mg/dL 7.6-11.0 [facility] Serum or plasma urea nitroge n measurement (mass/volume)Ordered By: Safia Ruelas on 12-10-2024 Urea nitrogen [Mass/Vol] 21 mg/dL High 4-19 [facility] Sodium levelOrdered By: Leonides Ruelas on 12-10-2024 Sodium [Moles/Vol] 137 mmol/L 133-145 [facility] White blood cell (WBC) count Ordered By: Safia Ruelas on 12-10-2024 WBC (Bld) [#/Vol] 8.6 10*3/uL 4.4-11.0 [facility] Absolute lymphocyte countOrd ered By: Balbirjean mariejosé antonio Ruelas on 12-03-2024 Lymphocytes Auto (Unsp spec) [#/Vol] 2.81 10*3/uL 0.83-4.51 [facility] Anion gap in Serum or Plasma Ordered By: Balbirjean mariejosé antonio Cheoquyen on 12-03-2024 Anion gap [Moles/Vol] 14 mmol/L 5-15 [facility] [place] Automated lymphocyte count a s percentage of total leukocytesOrdered By: Balbirjean mariejosé antonio Cheoquyen on 12-03-2024 Lymphocytes/100 WBC Auto (Unsp spec) 28.3 % 19-41 [facility] BUN/creatinine ratioOrdered By: Balbirjean mariejosé antonio Cheoquyen on 12-03-2024 Urea nitrogen/Creatinine [Mass ratio] 28.4 mg/mg High 10-20 [facility] Basophil percentageOrdered B y: Safia Ruelas on 12-03-2024 Basophils/100 WBC (Bld) 0.6 % 0-1 [facility] Carbon dioxide, total [Moles /volume] in Central venous bloodOrdered By: Balbirjean mariejosé antonio Cheobonimelanie on 12-03-2024 CO2 [Moles/Vol] 23.3 mmol/L 21.0-32.0 [facility] Chloride assayOrdered By: Balbir sherry Cheobonimelanie on 12-03-2024 Chloride [Moles/Vol] 102 mmol/L 98-108 [facility] Eosinophil percentageOrdered By: Balbirjean mariejosé antonio Cheobonimelanie on 12-03-2024 Eosinophils/100 WBC (Bld) 1.5 % 0-5 [facility] Erythrocyte distribution wid th ratioOrdered By: Balbirjean mariejosé antonio Cheobonimelanie on 12-03-2024 Erythrocyte distribution width (RBC) [Ratio] 14.1 % 11.6-14.6 [facility] Erythrocyte distribution wid th standard deviationOrdered By: Safia Ruelas on 12-03-2024 Erythrocyte distribution width (RBC) [Ratio] 47.9 fl High 35.1-43.9 [facility] Glomerular filtration rate ( GFR) estimation/1.73 sq m using serum, plasma, or whole bOrdered By: Safia Ruelas on 12-03-2024 GFR/1.73 sq M.predicted among non-blacks MDRD (S/P/Bld) [Vol rate/Area] 65 mL/min/{1.73_m2} >60 [facility] Hematocrit Auto (Bld) [Volum e fraction]Ordered By: Safia Ruelas on 12-03-2024 Hematocrit (Bld) [Volume fraction] 40.0 % 37-47 [facility] Hemoglobin measurementOrdere d By: Safia Ruelas on 12-03-2024 Hemoglobin (Bld) [Mass/Vol] 12.9 g/dL 12.0-15.0 [facility] Immature granulocytes/100 WB C Auto (Bld)Ordered By: Safia Ruelas on 12-03-2024 Immature granulocytes/100 WBC (Bld) 0.300 % 0.0-0.9 [facility] MCV (mean corpuscular volume ) determinationOrdered By: Safia Ruelas on 12-03-2024 MCV (RBC) [Entitic vol] 91.3 fL 81-99 [facility] Mean corpuscular hemoglobin (MCH) determinationOrdered By: Safia Ruelas on 12-03-2024 MCH (RBC) [Entitic mass] 29.5 pg 27.0-32.0 [facility] Monocyte percentageOrdered B y: Safia Ruelas on 12-03-2024 Monocytes/100 WBC (Bld) 9.6 % 0-10 [facility] Neutrophil percentageOrdered By: Safia Ruelas on 12-03-2024 Neutrophils/100 WBC (Bld) 59.7 % 47-70 [facility] Platelet countOrdered By: Balbir Ruelas on 12-03-2024 Platelets (Bld) [#/Vol] 280 10*3/uL 150-450 [facility] Potassium measurement (mass/ volume)Ordered By: Safia Ruelas on 12-03-2024 Potassium (Unsp spec) [Mass/Vol] 4.0 mmol/L 3.3-5.1 [facility] RBC Auto (Bld) [#/Vol]Ordere d By: Safia Ruelas on 12-03-2024 RBC (Bld) [#/Vol] 4.38 10*6/uL 4.2-5.4 [facility] Serum creatinine measurement (mass/volume)Ordered By: Safia Ruelas on 12-03-2024 Creatinine [Mass/Vol] 0.89 mg/dL 0.70-1.20 [facility] Serum glucose measurement (m ass/volume)Ordered By: Safia Ruelas on 12-03-2024 Glucose [Mass/Vol] 77 mg/dL 70-99 [facility] Serum or plasma calcium dayna urement (mass/volume)Ordered By: Safia Ruelas on 12-03-2024 Calcium [Mass/Vol] 9.6 mg/dL 7.6-11.0 [facility] Serum or plasma urea nitroge n measurement (mass/volume)Ordered By: Safia Ruelas on 12-03-2024 Urea nitrogen [Mass/Vol] 25 mg/dL High 4-19 [facility] Sodium levelOrdered By: Leonides jiménezradha Jessenia on 12-03-2024 Sodium [Moles/Vol] 139 mmol/L 133-145 [facility] TSH DL <= 0.005 mIU/L QnOrde red By: Safia Ruelas on 12-03-2024 TSH Qn 3.500 uIU/mL 0.300-4.200 [facility] White blood cell (WBC) count Ordered By: Safia Ruelas on 12-03-2024 WBC (Bld) [#/Vol] 9.9 10*3/uL 4.4-11.0 [facility] Absolute lymphocyte countOrd ered By: Safia Ruelas on 11-26-2024 Lymphocytes Auto (Unsp spec) [#/Vol] 2.99 10*3/uL 0.83-4.51 [facility] Absolute neutrophil countOrd ered By: Safia Griderbonimelanie on 11-26-2024 Neutrophils (Bld) [#/Vol] 4.2 10*3/uL 2.0-7.7 [facility] Anion gap in Serum or Plasma Ordered By: Safia Ruelas on 11-26-2024 Anion gap [Moles/Vol] 13 mmol/L 5-15 [facility] [place] Automated lymphocyte count a s percentage of total leukocytesOrdered By: Safia Ruelas on 11-26-2024 Lymphocytes/100 WBC Auto (Unsp spec) 37.1 % 19-41 [facility] BUN/creatinine ratioOrdered By: Safia Ruelas on 11-26-2024 Urea nitrogen/Creatinine [Mass ratio] 24.3 mg/mg High 10-20 [facility] Basophil percentageOrdered B y: Safia Ruelas on 11-26-2024 Basophils/100 WBC (Bld) 0.7 % 0-1 [facility] Carbon dioxide, total [Moles /volume] in Central venous bloodOrdered By: Safia Ruelas on 11-26-2024 CO2 [Moles/Vol] 27.1 mmol/L 21.0-32.0 [facility] Chloride assayOrdered By: Balbir Ruelas on 11-26-2024 Chloride [Moles/Vol] 101 mmol/L 98-108 [facility] Eosinophil percentageOrdered By: Safia Griderbonimelanie on 11-26-2024 Eosinophils/100 WBC (Bld) 1.9 % 0-5 [facility] Erythrocyte distribution wid th ratioOrdered By: Safia Griderbonimelanie on 11-26-2024 Erythrocyte distribution width (RBC) [Ratio] 14.2 % 11.6-14.6 [facility] Erythrocyte distribution wid th standard deviationOrdered By: Safia Griderbonimelanie on 11-26-2024 Erythrocyte distribution width (RBC) [Ratio] 48.0 fl High 35.1-43.9 [facility] Glomerular filtration rate ( GFR) estimation/1.73 sq m using serum, plasma, or whole bOrdered By: Safia Ruelas on 11-26-2024 GFR/1.73 sq M.predicted among non-blacks MDRD (S/P/Bld) [Vol rate/Area] 63 mL/min/{1.73_m2} >60 [facility] Comment on above: mL/min/1.73m2 CKD-EP I Creatinine Equation (2020) Hematocrit Auto (Bld) [Volum e fraction]Ordered By: Safia Ruelas on 11-26-2024 Hematocrit (Bld) [Volume fraction] 42.7 % 37-47 [facility] Hemoglobin measurementOrdere d By: Safia Ruelas on 11-26-2024 Hemoglobin (Bld) [Mass/Vol] 13.6 g/dL 12.0-15.0 [facility] Immature granulocytes/100 WB C Auto (Bld)Ordered By: jean marielas vegasskye Ruelas on 11-26-2024 Immature granulocytes/100 WBC (Bld) 0.500 % 0.0-0.9 [facility] Comment on above: IG% - Immature Granu locytes (promyelocytes, myelocytes and metamyelocytes) > 1% indicates that a LEFT SHIFT is Present. MCV (mean corpuscular volume ) determinationOrdered By: Safia Ruelas on 11-26-2024 MCV (RBC) [Entitic vol] 92.0 fL 81-99 [facility] Mean corpuscular hemoglobin (MCH) determinationOrdered By: Safia Ruelas on 11-26-2024 MCH (RBC) [Entitic mass] 29.3 pg 27.0-32.0 [facility] Mean corpuscular hemoglobin concentration (MCHC) determinationOrdered By: Safia Ruelas on 11-26-2024 MCHC (RBC) [Mass/Vol] 31.9 g/dL Low 32-36 [facility] [place] Mean platelet volume determi nationOrdered By: Safia Ruelas on 11-26-2024 Platelet mean volume (Bld) [Entitic vol] 11.5 fL 6.2-12.0 [facility] Monocyte percentageOrdered B y: Safia Ruelas on 11-26-2024 Monocytes/100 WBC (Bld) 7.7 % 0-10 [facility] Neutrophil percentageOrdered By: Safia Ruelas on 11-26-2024 Neutrophils/100 WBC (Bld) 52.1 % 47-70 [facility] Nucleated red blood cell per centageOrdered By: Safia Ruelas on 11-26-2024 Nucleated RBC/100 WBC (Bld) [Ratio] 0 % 0-5 [facility] Platelet countOrdered By: Balbir Ruelas on 11-26-2024 Platelets (Bld) [#/Vol] 283 10*3/uL 150-450 [facility] Potassium measurement (mass/ volume)Ordered By: Safia Ruelas on 11-26-2024 Potassium (Unsp spec) [Mass/Vol] 3.8 mmol/L 3.3-5.1 [facility] RBC Auto (Bld) [#/Vol]Ordere d By: Safia Ruelas on 11-26-2024 RBC (Bld) [#/Vol] 4.64 10*6/uL 4.2-5.4 [facility] Serum creatinine measurement (mass/volume)Ordered By: Safia Ruelas on 11-26-2024 Creatinine [Mass/Vol] 0.92 mg/dL 0.70-1.20 [facility] [place] Serum glucose measurement (m ass/volume)Ordered By: Safia Ruelas on 11-26-2024 Glucose [Mass/Vol] 97 mg/dL 70-99 [facility] Serum or plasma calcium dayna urement (mass/volume)Ordered By: Safia Ruelas on 11-26-2024 Calcium [Mass/Vol] 10.0 mg/dL 7.6-11.0 [facility] Serum or plasma urea nitroge n measurement (mass/volume)Ordered By: Safia Ruelas on 11-26-2024 Urea nitrogen [Mass/Vol] 22 mg/dL High 4-19 [facility] Sodium levelOrdered By: Leonides Ruelas on 11-26-2024 Sodium [Moles/Vol] 140 mmol/L 133-145 [facility] White blood cell (WBC) count Ordered By: Safia Ruelas on 11-26-2024 WBC (Bld) [#/Vol] 8.1 10*3/uL 4.4-11.0 [facility] Clostridium difficile detect ion by polymerase chain reactionOrdered By: Safia Ruelas on 11-25-2024 C. difficile DNA CHUCKY+probe Ql (Unsp spec) [facility] Absolute lymphocyte countOrd ered By: Safia Ruelas on 11-19-2024 Lymphocytes Auto (Unsp spec) [#/Vol] 2.71 10*3/uL 0.83-4.51 [facility] Absolute neutrophil countOrd ered By: sherry Ruelas on 11-19-2024 Neutrophils (Bld) [#/Vol] 5.2 10*3/uL 2.0-7.7 [facility] Anion gap in Serum or Plasma Ordered By: Safia Ruelas on 11-19-2024 Anion gap [Moles/Vol] 12 mmol/L 5-15 [facility] [place] Automated lymphocyte count a s percentage of total leukocytesOrdered By: Safia Ruelas on 11-19-2024 Lymphocytes/100 WBC Auto (Unsp spec) 30.4 % 19-41 [facility] BUN/creatinine ratioOrdered By: Safia Ruelas on 11-19-2024 Urea nitrogen/Creatinine [Mass ratio] 25.0 mg/mg High 10-20 [facility] Basophil percentageOrdered B y: Safia Ruelas on 11-19-2024 Basophils/100 WBC (Bld) 0.6 % 0-1 [facility] Carbon dioxide, total [Moles /volume] in Central venous bloodOrdered By: Safia Ruelas on 11-19-2024 CO2 [Moles/Vol] 25.5 mmol/L 21.0-32.0 [facility] Chloride assayOrdered By: Balbir Ruelas on 11-19-2024 Chloride [Moles/Vol] 101 mmol/L 98-108 [facility] Eosinophil percentageOrdered By: Safia Ruelas on 11-19-2024 Eosinophils/100 WBC (Bld) 2.1 % 0-5 [facility] Erythrocyte distribution wid th ratioOrdered By: Safia Ruelas on 11-19-2024 Erythrocyte distribution width (RBC) [Ratio] 13.9 % 11.6-14.6 [facility] Erythrocyte distribution wid th standard deviationOrdered By: Safia Ruelas on 11-19-2024 Erythrocyte distribution width (RBC) [Ratio] 46.6 fl High 35.1-43.9 [facility] Glomerular filtration rate ( GFR) estimation/1.73 sq m using serum, plasma, or whole bOrdered By: Safia Ruelas on 11-19-2024 GFR/1.73 sq M.predicted among non-blacks MDRD (S/P/Bld) [Vol rate/Area] 66 mL/min/{1.73_m2} >60 [facility] Comment on above: mL/min/1.73m2 CKD-EP I Creatinine Equation (2020) Hematocrit Auto (Bld) [Volum e fraction]Ordered By: Safia Ruelas on 11-19-2024 Hematocrit (Bld) [Volume fraction] 39.2 % 37-47 [facility] Hemoglobin measurementOrdere d By: Leonideslas vegasskye Ruelas on 11-19-2024 Hemoglobin (Bld) [Mass/Vol] 12.7 g/dL 12.0-15.0 [facility] Immature granulocytes/100 WB C Auto (Bld)Ordered By: Safia Ruelas 11-19-2024 Immature granulocytes/100 WBC (Bld) 0.300 % 0.0-0.9 [facility] Comment on above: IG% - Immature Granu locytes (promyelocytes, myelocytes and metamyelocytes) > 1% indicates that a LEFT SHIFT is Present. MCV (mean corpuscular volume ) determinationOrdered By: Safia Ruelas 11-19-2024 MCV (RBC) [Entitic vol] 91.4 fL 81-99 [facility] Mean corpuscular hemoglobin (MCH) determinationOrdered By: jean marielas vegasskye Ruelas 11-19-2024 MCH (RBC) [Entitic mass] 29.6 pg 27.0-32.0 [facility] Mean corpuscular hemoglobin concentration (MCHC) determinationOrdered By: Safia Ruelas on 11-19-2024 MCHC (RBC) [Mass/Vol] 32.4 g/dL 32-36 [facility] [place] Mean platelet volume determi nationOrdered By: Safia Ruelas on 11-19-2024 Platelet mean volume (Bld) [Entitic vol] 11.5 fL 6.2-12.0 [facility] Monocyte percentageOrdered B y: Safia Ruelas on 11-19-2024 Monocytes/100 WBC (Bld) 7.8 % 0-10 [facility] Neutrophil percentageOrdered By: Safia Ruelas on 11-19-2024 Neutrophils/100 WBC (Bld) 58.8 % 47-70 [facility] Nucleated red blood cell per centageOrdered By: Safia Ruelas on 11-19-2024 Nucleated RBC/100 WBC (Bld) [Ratio] 0 % 0-5 [facility] Platelet countOrdered By: Balbir Ruelas on 11-19-2024 Platelets (Bld) [#/Vol] 300 10*3/uL 150-450 [facility] Potassium measurement (mass/ volume)Ordered By: Safia Ruelas on 11-19-2024 Potassium (Unsp spec) [Mass/Vol] 3.8 mmol/L 3.3-5.1 [facility] RBC Auto (Bld) [#/Vol]Ordere d By: Safia Ruelas on 11-19-2024 RBC (Bld) [#/Vol] 4.29 10*6/uL 4.2-5.4 [facility] Serum creatinine measurement (mass/volume)Ordered By: Safia Ruelas on 11-19-2024 Creatinine [Mass/Vol] 0.88 mg/dL 0.70-1.20 [facility] [place] Serum glucose measurement (m ass/volume)Ordered By: Safia Ruelas on 11-19-2024 Glucose [Mass/Vol] 136 mg/dL High 70-99 [facility] Serum or plasma calcium dayna urement (mass/volume)Ordered By: Safia Ruelas on 11-19-2024 Calcium [Mass/Vol] 9.6 mg/dL 7.6-11.0 [facility] Serum or plasma urea nitroge n measurement (mass/volume)Ordered By: Safia Ruelas on 11-19-2024 Urea nitrogen [Mass/Vol] 22 mg/dL High 4-19 [facility] Sodium levelOrdered By: Leonides chou Jessenia on 11-19-2024 Sodium [Moles/Vol] 139 mmol/L 133-145 [facility] White blood cell (WBC) count Ordered By: Safia Ruelas on 11-19-2024 WBC (Bld) [#/Vol] 8.9 10*3/uL 4.4-11.0 [facility] Absolute lymphocyte countOrd ered By: Safia Ruelas on 11-12-2024 Lymphocytes Auto (Unsp spec) [#/Vol] 2.49 10*3/uL 0.83-4.51 [facility] Absolute neutrophil countOrd ered By: Safia Ruelas on 11-12-2024 Neutrophils (Bld) [#/Vol] 4.2 10*3/uL 2.0-7.7 [facility] Anion gap in Serum or Plasma Ordered By: Safia Ruelas on 11-12-2024 Anion gap [Moles/Vol] 12 mmol/L 5-15 [facility] [place] Automated lymphocyte count a s percentage of total leukocytesOrdered By: Safia Ruelas on 11-12-2024 Lymphocytes/100 WBC Auto (Unsp spec) 31.9 % 19-41 [facility] BUN/creatinine ratioOrdered By: Safia Ruelas on 11-12-2024 Urea nitrogen/Creatinine [Mass ratio] 28.1 mg/mg High 10-20 [facility] Basophil percentageOrdered B y: Leonidesdesireeskye Ruelas on 11-12-2024 Basophils/100 WBC (Bld) 0.6 % 0-1 [facility] Carbon dioxide, total [Moles /volume] in Central venous bloodOrdered By: Safia Ruelas on 11-12-2024 CO2 [Moles/Vol] 25.1 mmol/L 21.0-32.0 [facility] Chloride assayOrdered By: Balbir Ruelas on 11-12-2024 Chloride [Moles/Vol] 102 mmol/L 98-108 [facility] Eosinophil percentageOrdered By: Safia Ruelas on 11-12-2024 Eosinophils/100 WBC (Bld) 2.8 % 0-5 [facility] Erythrocyte distribution wid th ratioOrdered By: Safia Ruelas on 11-12-2024 Erythrocyte distribution width (RBC) [Ratio] 13.8 % 11.6-14.6 [facility] Erythrocyte distribution wid th standard deviationOrdered By: sherry Ruelas on 11-12-2024 Erythrocyte distribution width (RBC) [Ratio] 46.7 fl High 35.1-43.9 [facility] Glomerular filtration rate ( GFR) estimation/1.73 sq m using serum, plasma, or whole bOrdered By: Safia Ruelas on 11-12-2024 GFR/1.73 sq M.predicted among non-blacks MDRD (S/P/Bld) [Vol rate/Area] 70 mL/min/{1.73_m2} >60 [facility] Comment on above: mL/min/1.73m2 CKD-EP I Creatinine Equation (2020) Hematocrit Auto (Bld) [Volum e fraction]Ordered By: Safia Ruelas on 11-12-2024 Hematocrit (Bld) [Volume fraction] 40.6 % 37-47 [facility] Hemoglobin measurementOrdere d By: Safia Ruelas on 11-12-2024 Hemoglobin (Bld) [Mass/Vol] 13.2 g/dL 12.0-15.0 [facility] Immature granulocytes/100 WB C Auto (Bld)Ordered By: Safia Ruelas 11-12-2024 Immature granulocytes/100 WBC (Bld) 0.400 % 0.0-0.9 [facility] Comment on above: IG% - Immature Granu locytes (promyelocytes, myelocytes and metamyelocytes) > 1% indicates that a LEFT SHIFT is Present. MCV (mean corpuscular volume ) determinationOrdered By: Safia Ruelas on 11-12-2024 MCV (RBC) [Entitic vol] 92.1 fL 81-99 [facility] Mean corpuscular hemoglobin (MCH) determinationOrdered By: Safia Ruelas on 11-12-2024 MCH (RBC) [Entitic mass] 29.9 pg 27.0-32.0 [facility] Mean corpuscular hemoglobin concentration (MCHC) determinationOrdered By: Safia Ruelas on 11-12-2024 MCHC (RBC) [Mass/Vol] 32.5 g/dL 32-36 [facility] [place] Mean platelet volume determi nationOrdered By: Safia Ruelas on 11-12-2024 Platelet mean volume (Bld) [Entitic vol] 11.7 fL 6.2-12.0 [facility] Monocyte percentageOrdered B y: Safia Ruelas on 11-12-2024 Monocytes/100 WBC (Bld) 10.0 % 0-10 [facility] Neutrophil percentageOrdered By: Safia Ruelas on 11-12-2024 Neutrophils/100 WBC (Bld) 54.3 % 47-70 [facility] Nucleated red blood cell per centageOrdered By: Safia Ruelas on 11-12-2024 Nucleated RBC/100 WBC (Bld) [Ratio] 0 % 0-5 [facility] Platelet countOrdered By: Balbir Ruelas on 11-12-2024 Platelets (Bld) [#/Vol] 304 10*3/uL 150-450 [facility] Potassium measurement (mass/ volume)Ordered By: Safia Ruelas on 11-12-2024 Potassium (Unsp spec) [Mass/Vol] 3.9 mmol/L 3.3-5.1 [facility] RBC Auto (Bld) [#/Vol]Ordere d By: Safia Ruelas on 11-12-2024 RBC (Bld) [#/Vol] 4.41 10*6/uL 4.2-5.4 [facility] Serum creatinine measurement (mass/volume)Ordered By: Sfaia Ruelas on 11-12-2024 Creatinine [Mass/Vol] 0.84 mg/dL 0.70-1.20 [facility] [place] Serum glucose measurement (m ass/volume)Ordered By: Safia Ruelas on 11-12-2024 Glucose [Mass/Vol] 112 mg/dL High 70-99 [facility] Serum or plasma calcium dayna urement (mass/volume)Ordered By: Safia Ruelas on 11-12-2024 Calcium [Mass/Vol] 9.7 mg/dL 7.6-11.0 [facility] Serum or plasma urea nitroge n measurement (mass/volume)Ordered By: Safia Ruelas on 11-12-2024 Urea nitrogen [Mass/Vol] 24 mg/dL High 4-19 [facility] Sodium levelOrdered By: Leonides jiméneztadmelanie Ruelas on 11-12-2024 Sodium [Moles/Vol] 139 mmol/L 133-145 [facility] White blood cell (WBC) count Ordered By: Safia Ruelas on 11-12-2024 WBC (Bld) [#/Vol] 7.8 10*3/uL 4.4-11.0 [facility] Absolute lymphocyte countOrd ered By: Safia Ruelas on 11-05-2024 Lymphocytes Auto (Unsp spec) [#/Vol] 2.91 10*3/uL 0.83-4.51 [facility] Absolute neutrophil countOrd ered By: Safia Ruelas on 11-05-2024 Neutrophils (Bld) [#/Vol] 4.6 10*3/uL 2.0-7.7 [facility] Anion gap in Serum or Plasma Ordered By: Safia Ruelas on 11-05-2024 Anion gap [Moles/Vol] 13 mmol/L 5-15 [facility] [place] Automated lymphocyte count a s percentage of total leukocytesOrdered By: Safia Ruelas on 11-05-2024 Lymphocytes/100 WBC Auto (Unsp spec) 33.7 % 19-41 [facility] BUN/creatinine ratioOrdered By: Safia Ruelas on 11-05-2024 Urea nitrogen/Creatinine [Mass ratio] 23.3 mg/mg High 10-20 [facility] Basophil percentageOrdered B y: Safia Ruelas on 11-05-2024 Basophils/100 WBC (Bld) 0.9 % 0-1 [facility] Carbon dioxide, total [Moles /volume] in Central venous bloodOrdered By: Safia Ruelas on 11-05-2024 CO2 [Moles/Vol] 24.2 mmol/L 21.0-32.0 [facility] Chloride assayOrdered By: Balbir Ruelas on 11-05-2024 Chloride [Moles/Vol] 102 mmol/L 98-108 [facility] Eosinophil percentageOrdered By: Safia Ruelas on 11-05-2024 Eosinophils/100 WBC (Bld) 2.7 % 0-5 [facility] Erythrocyte distribution wid th ratioOrdered By: Safia Ruelas on 11-05-2024 Erythrocyte distribution width (RBC) [Ratio] 13.9 % 11.6-14.6 [facility] Erythrocyte distribution wid th standard deviationOrdered By: Safia Ruelas on 11-05-2024 Erythrocyte distribution width (RBC) [Ratio] 47.1 fl High 35.1-43.9 [facility] Glomerular filtration rate ( GFR) estimation/1.73 sq m using serum, plasma, or whole bOrdered By: Safia Ruelas on 11-05-2024 GFR/1.73 sq M.predicted among non-blacks MDRD (S/P/Bld) [Vol rate/Area] 62 mL/min/{1.73_m2} >60 [facility] Comment on above: mL/min/1.73m2 CKD-EP I Creatinine Equation (2020) Hematocrit Auto (Bld) [Volum e fraction]Ordered By: Safia Ruelas on 11-05-2024 Hematocrit (Bld) [Volume fraction] 40.7 % 37-47 [facility] Hemoglobin measurementOrdere d By: Safia Ruelas on 11-05-2024 Hemoglobin (Bld) [Mass/Vol] 12.9 g/dL 12.0-15.0 [facility] Immature granulocytes/100 WB C Auto (Bld)Ordered By: Safia Ruelas on 11-05-2024 Immature granulocytes/100 WBC (Bld) 0.500 % 0.0-0.9 [facility] Comment on above: IG% - Immature Granu locytes (promyelocytes, myelocytes and metamyelocytes) > 1% indicates that a LEFT SHIFT is Present. MCV (mean corpuscular volume ) determinationOrdered By: Safia Ruelas on 11-05-2024 MCV (RBC) [Entitic vol] 92.9 fL 81-99 [facility] Mean corpuscular hemoglobin (MCH) determinationOrdered By: Safia Ruelas on 11-05-2024 MCH (RBC) [Entitic mass] 29.5 pg 27.0-32.0 [facility] Mean corpuscular hemoglobin concentration (MCHC) determinationOrdered By: Safia Ruelas on 11-05-2024 MCHC (RBC) [Mass/Vol] 31.7 g/dL Low 32-36 [facility] [place] Mean platelet volume determi nationOrdered By: Safia Ruelas on 11-05-2024 Platelet mean volume (Bld) [Entitic vol] 11.2 fL 6.2-12.0 [facility] Monocyte percentageOrdered B y: Safia Ruelas on 11-05-2024 Monocytes/100 WBC (Bld) 8.6 % 0-10 [facility] Neutrophil percentageOrdered By: Safia Ruelas on 11-05-2024 Neutrophils/100 WBC (Bld) 53.6 % 47-70 [facility] Nucleated red blood cell per centageOrdered By: Safia Ruelas on 11-05-2024 Nucleated RBC/100 WBC (Bld) [Ratio] 0 % 0-5 [facility] Platelet countOrdered By: Balbir Ruelas on 11-05-2024 Platelets (Bld) [#/Vol] 318 10*3/uL 150-450 [facility] Potassium measurement (mass/ volume)Ordered By: Safia Ruelas on 11-05-2024 Potassium (Unsp spec) [Mass/Vol] 4.0 mmol/L 3.3-5.1 [facility] RBC Auto (Bld) [#/Vol]Ordere d By: Safia Ruelas on 11-05-2024 RBC (Bld) [#/Vol] 4.38 10*6/uL 4.2-5.4 [facility] Serum creatinine measurement (mass/volume)Ordered By: Balbirjean mariedesireeskye Griderbonimelanie on 11-05-2024 Creatinine [Mass/Vol] 0.93 mg/dL 0.70-1.20 [facility] [place] Serum glucose measurement (m ass/volume)Ordered By: Safia Griderbonimelanie on 11-05-2024 Glucose [Mass/Vol] 70 mg/dL 70-99 [facility] Serum or plasma calcium dayna urement (mass/volume)Ordered By: Balbirjean mariedesireeskye Griderbonimelanie on 11-05-2024 Calcium [Mass/Vol] 9.5 mg/dL 7.6-11.0 [facility] Serum or plasma urea nitroge n measurement (mass/volume)Ordered By: Balbirjean mariedesireeskye Griderbonimelanie on 11-05-2024 Urea nitrogen [Mass/Vol] 22 mg/dL High 4-19 [facility] Sodium levelOrdered By: Leonides chou Cheobonimelanie on 11-05-2024 Sodium [Moles/Vol] 139 mmol/L 133-145 [facility] White blood cell (WBC) count Ordered By: Balbirjean mariedesireeskye Griderbonimelanie on 11-05-2024 WBC (Bld) [#/Vol] 8.6 10*3/uL 4.4-11.0 [facility] Absolute lymphocyte countOrd ered By: Balbirjean mariedesireeskye Griderbonimelanie on 10-29-2024 Lymphocytes Auto (Unsp spec) [#/Vol] 2.69 10*3/uL 0.83-4.51 [facility] Absolute neutrophil countOrd ered By: Safia Cheoquyen on 10-29-2024 Neutrophils (Bld) [#/Vol] 4.5 10*3/uL 2.0-7.7 [facility] Anion gap in Serum or Plasma Ordered By: Safia Ruelas on 10-29-2024 Anion gap [Moles/Vol] 11 mmol/L 5-15 [facility] [place] Automated lymphocyte count a s percentage of total leukocytesOrdered By: Safia Griderbonimelanie on 10-29-2024 Lymphocytes/100 WBC Auto (Unsp spec) 32.6 % 19-41 [facility] BUN/creatinine ratioOrdered By: Safia Ruelas on 10-29-2024 Urea nitrogen/Creatinine [Mass ratio] 25.2 mg/mg High 10-20 [facility] Basophil percentageOrdered B y: Safia Ruelas on 10-29-2024 Basophils/100 WBC (Bld) 0.7 % 0-1 [facility] Carbon dioxide, total [Moles /volume] in Central venous bloodOrdered By: Safia Ruelas on 10-29-2024 CO2 [Moles/Vol] 25.7 mmol/L 21.0-32.0 [facility] Chloride assayOrdered By: Balbir Ruelas on 10-29-2024 Chloride [Moles/Vol] 102 mmol/L 98-108 [facility] Eosinophil percentageOrdered By: Leonideslas vegasskye Ruelas on 10-29-2024 Eosinophils/100 WBC (Bld) 2.1 % 0-5 [facility] Erythrocyte distribution wid th ratioOrdered By: Safia Ruelas on 10-29-2024 Erythrocyte distribution width (RBC) [Ratio] 13.6 % 11.6-14.6 [facility] Erythrocyte distribution wid th standard deviationOrdered By: Safia Ruelas on 10-29-2024 Erythrocyte distribution width (RBC) [Ratio] 46.6 fl High 35.1-43.9 [facility] Glomerular filtration rate ( GFR) estimation/1.73 sq m using serum, plasma, or whole bOrdered By: Safia Ruelas on 10-29-2024 GFR/1.73 sq M.predicted among non-blacks MDRD (S/P/Bld) [Vol rate/Area] 59 mL/min/{1.73_m2} Low >60 [facility] Comment on above: mL/min/1.73m2 CKD-EP I Creatinine Equation (2020) Hematocrit Auto (Bld) [Volum e fraction]Ordered By: Safia Ruelas on 10-29-2024 Hematocrit (Bld) [Volume fraction] 37.8 % 37-47 [facility] Hemoglobin measurementOrdere d By: Safia Ruelas on 10-29-2024 Hemoglobin (Bld) [Mass/Vol] 12.2 g/dL 12.0-15.0 [facility] Immature granulocytes/100 WB C Auto (Bld)Ordered By: Safia Ruelas on 10-29-2024 Immature granulocytes/100 WBC (Bld) 0.400 % 0.0-0.9 [facility] Comment on above: IG% - Immature Granu locytes (promyelocytes, myelocytes and metamyelocytes) > 1% indicates that a LEFT SHIFT is Present. MCV (mean corpuscular volume ) determinationOrdered By: Safia Ruelas on 10-29-2024 MCV (RBC) [Entitic vol] 92.2 fL 81-99 [facility] Mean corpuscular hemoglobin (MCH) determinationOrdered By: jean marielas vegasskye Ruelas on 10-29-2024 MCH (RBC) [Entitic mass] 29.8 pg 27.0-32.0 [facility] Mean corpuscular hemoglobin concentration (MCHC) determinationOrdered By: sherry Ruelas on 10-29-2024 MCHC (RBC) [Mass/Vol] 32.3 g/dL 32-36 [facility] [place] Mean platelet volume determi nationOrdered By: Safia Ruelas on 10-29-2024 Platelet mean volume (Bld) [Entitic vol] 11.1 fL 6.2-12.0 [facility] Monocyte percentageOrdered B y: Safia Ruelas on 10-29-2024 Monocytes/100 WBC (Bld) 9.9 % 0-10 [facility] Neutrophil percentageOrdered By: sherry Ruelas on 10-29-2024 Neutrophils/100 WBC (Bld) 54.3 % 47-70 [facility] Nucleated red blood cell per centageOrdered By: sherry Ruelas on 10-29-2024 Nucleated RBC/100 WBC (Bld) [Ratio] 0 % 0-5 [facility] Platelet countOrdered By: Balbir Ruelas on 10-29-2024 Platelets (Bld) [#/Vol] 283 10*3/uL 150-450 [facility] Potassium measurement (mass/ volume)Ordered By: Safia Ruelas on 10-29-2024 Potassium (Unsp spec) [Mass/Vol] 3.9 mmol/L 3.3-5.1 [facility] RBC Auto (Bld) [#/Vol]Ordere d By: Safia Ruelas on 10-29-2024 RBC (Bld) [#/Vol] 4.10 10*6/uL Low 4.2-5.4 [facility] Serum creatinine measurement (mass/volume)Ordered By: Safia Ruelas on 10-29-2024 Creatinine [Mass/Vol] 0.97 mg/dL 0.70-1.20 [facility] [place] Serum glucose measurement (m ass/volume)Ordered By: Safia Ruelas on 10-29-2024 Glucose [Mass/Vol] 74 mg/dL 70-99 [facility] Serum or plasma calcium dayna urement (mass/volume)Ordered By: Safia Ruelas on 10-29-2024 Calcium [Mass/Vol] 9.5 mg/dL 7.6-11.0 [facility] Serum or plasma urea nitroge n measurement (mass/volume)Ordered By: Safia Ruelas on 10-29-2024 Urea nitrogen [Mass/Vol] 24 mg/dL High 4-19 [facility] Sodium levelOrdered By: Leonides Ruelas on 10-29-2024 Sodium [Moles/Vol] 138 mmol/L 133-145 [facility] White blood cell (WBC) count Ordered By: Safia Ruelas on 10-29-2024 WBC (Bld) [#/Vol] 8.3 10*3/uL 4.4-11.0 [facility] Bilirubin Test strip Ql (U)O rdered By: Sfaia Ruelas on 10-23-2024 Bilirubin Ql (U) Negative Negative [facility] Ketones Test strip Ql (U)Ord ered By: Safia Ruelas on 10-23-2024 Ketones Ql (U) Negative Negative [facility] Nitrite Test strip Ql (U)Ord ered By: Safia Ruelas on 10-23-2024 Nitrite Ql (U) Positive High Negative [facility] Protein Test strip Ql (U)Ord ered By: Safia Ruelas on 10-23-2024 Protein Ql (U) 15 mg/dl High Negative [facility] Urine clarityOrdered By: Augusto Ruelas on 10-23-2024 Clarity (U) Clear Clear [facility] Urine color determinationOrd ered By: Safia Ruelas on 10-23-2024 Color (U) Yellow Yellow [facility] Urine cultureOrdered By: Augusto Ruelas on 10-23-2024 Bacteria identified Cx Nom (U) Klebsiella pneumoniae sp pneum Abnormal [facility] Urine glucose detectionOrder ed By: Safia Ruelas on 10-23-2024 Glucose Ql (U) Normal mg/dl Normal [facility] Urine leukocyte esterase det ection by dipstickOrdered By: Safia Ruelas on 10-23-2024 Leukocyte esterase Test strip Ql (U) 500 /ul High Negative [facility] Urine pHOrdered By: Mazin Ruelas on 10-23-2024 pH (U) 6.0 [pH] 5.0 - 8.0 [facility] Urine specific gravity measu rementOrdered By: Safia Ruelas on 10-23-2024 Specific gravity (U) [Rel density] 1.010 1.002-1.030 [facility] Urine urobilinogen measureme ntOrdered By: Safia Ruelas on 10-23-2024 Urobilinogen Ql (U) Normal mg/dl Normal [facility] [place] Absolute lymphocyte countOrd ered By: Safia Ruelas on 10-22-2024 Lymphocytes Auto (Unsp spec) [#/Vol] 3.07 10*3/uL 0.83-4.51 [facility] Absolute neutrophil countOrd ered By: Safia Ruelas on 10-22-2024 Neutrophils (Bld) [#/Vol] 4.6 10*3/uL 2.0-7.7 [facility] Anion gap in Serum or Plasma Ordered By: Safia Ruelas on 10-22-2024 Anion gap [Moles/Vol] 15 mmol/L 5-15 [facility] [place] Automated lymphocyte count a s percentage of total leukocytesOrdered By: Safia Ruelas on 10-22-2024 Lymphocytes/100 WBC Auto (Unsp spec) 34.8 % 19-41 [facility] BUN/creatinine ratioOrdered By: Safia Ruelas on 10-22-2024 Urea nitrogen/Creatinine [Mass ratio] 28.6 mg/mg High 10-20 [facility] Basophil percentageOrdered B y: Safia Ruelas on 10-22-2024 Basophils/100 WBC (Bld) 0.9 % 0-1 [facility] Carbon dioxide, total [Moles /volume] in Central venous bloodOrdered By: Safia Ruelas on 10-22-2024 CO2 [Moles/Vol] 23.1 mmol/L 21.0-32.0 [facility] Chloride assayOrdered By: Balbir Ruelas on 10-22-2024 Chloride [Moles/Vol] 100 mmol/L 98-108 [facility] Eosinophil percentageOrdered By: Safia Ruelas on 10-22-2024 Eosinophils/100 WBC (Bld) 3.1 % 0-5 [facility] Erythrocyte distribution wid th ratioOrdered By: Safia Ruelas on 10-22-2024 Erythrocyte distribution width (RBC) [Ratio] 13.6 % 11.6-14.6 [facility] Erythrocyte distribution wid th standard deviationOrdered By: Safia Ruelas on 10-22-2024 Erythrocyte distribution width (RBC) [Ratio] 45.9 fl High 35.1-43.9 [facility] Glomerular filtration rate ( GFR) estimation/1.73 sq m using serum, plasma, or whole bOrdered By: Safia Ruelas on 10-22-2024 GFR/1.73 sq M.predicted among non-blacks MDRD (S/P/Bld) [Vol rate/Area] 60 mL/min/{1.73_m2} >60 [facility] Comment on above: mL/min/1.73m2 CKD-EP I Creatinine Equation (2020) Hematocrit Auto (Bld) [Volum e fraction]Ordered By: Safia Ruelas on 10-22-2024 Hematocrit (Bld) [Volume fraction] 40.7 % 37-47 [facility] Hemoglobin measurementOrdere d By: Safia Ruelas on 10-22-2024 Hemoglobin (Bld) [Mass/Vol] 13.1 g/dL 12.0-15.0 [facility] Immature granulocytes/100 WB C Auto (Bld)Ordered By: Saifa Ruelas on 10-22-2024 Immature granulocytes/100 WBC (Bld) 1.400 % High 0.0-0.9 [facility] Comment on above: IG% - Immature Granu locytes (promyelocytes, myelocytes and metamyelocytes) > 1% indicates that a LEFT SHIFT is Present. MCV (mean corpuscular volume ) determinationOrdered By: Saifa Ruelas on 10-22-2024 MCV (RBC) [Entitic vol] 91.9 fL 81-99 [facility] Mean corpuscular hemoglobin (MCH) determinationOrdered By: Safia Ruelas on 10-22-2024 MCH (RBC) [Entitic mass] 29.6 pg 27.0-32.0 [facility] Mean corpuscular hemoglobin concentration (MCHC) determinationOrdered By: Safia Ruelas on 10-22-2024 MCHC (RBC) [Mass/Vol] 32.2 g/dL 32-36 [facility] [place] Mean platelet volume determi nationOrdered By: Safia Ruelas on 10-22-2024 Platelet mean volume (Bld) [Entitic vol] 11.2 fL 6.2-12.0 [facility] Monocyte percentageOrdered B y: Safia Ruelas on 10-22-2024 Monocytes/100 WBC (Bld) 7.7 % 0-10 [facility] Neutrophil percentageOrdered By: Safia Ruelas on 10-22-2024 Neutrophils/100 WBC (Bld) 52.1 % 47-70 [facility] Nucleated red blood cell per centageOrdered By: Safia Ruelas on 10-22-2024 Nucleated RBC/100 WBC (Bld) [Ratio] 0 % 0-5 [facility] Platelet countOrdered By: randallskye Ruelas on 10-22-2024 Platelets (Bld) [#/Vol] 334 10*3/uL 150-450 [facility] Potassium measurement (mass/ volume)Ordered By: Safia Ruelas on 10-22-2024 Potassium (Unsp spec) [Mass/Vol] 3.7 mmol/L 3.3-5.1 [facility] RBC Auto (Bld) [#/Vol]Ordere d By: Safia Ruelas on 10-22-2024 RBC (Bld) [#/Vol] 4.43 10*6/uL 4.2-5.4 [facility] Serum creatinine measurement (mass/volume)Ordered By: Safia Ruelas on 10-22-2024 Creatinine [Mass/Vol] 0.96 mg/dL 0.70-1.20 [facility] [place] Serum glucose measurement (m ass/volume)Ordered By: Safia Ruelas on 10-22-2024 Glucose [Mass/Vol] 106 mg/dL High 70-99 [facility] Serum or plasma calcium dayna urement (mass/volume)Ordered By: Safia Griderbonimelanie on 10-22-2024 Calcium [Mass/Vol] 9.4 mg/dL 7.6-11.0 [facility] Serum or plasma urea nitroge n measurement (mass/volume)Ordered By: Safia Ruelas on 10-22-2024 Urea nitrogen [Mass/Vol] 28 mg/dL High 4-19 [facility] Sodium levelOrdered By: Leonides jiménezradha Jessenia on 10-22-2024 Sodium [Moles/Vol] 138 mmol/L 133-145 [facility] TSH DL <= 0.005 mIU/L QnOrde red By: Safia Griderbonimelanie on 10-22-2024 TSH Qn 4.630 uIU/mL High 0.300-4.200 [facility] White blood cell (WBC) count Ordered By: Safia Ruelas on 10-22-2024 WBC (Bld) [#/Vol] 8.8 10*3/uL 4.4-11.0 [facility] Absolute lymphocyte countOrd ered By: Safia Ruelas on 10-15-2024 Lymphocytes Auto (Unsp spec) [#/Vol] 3.04 10*3/uL 0.83-4.51 [facility] Absolute neutrophil countOrd ered By: Safia Ruelas on 10-15-2024 Neutrophils (Bld) [#/Vol] 4.3 10*3/uL 2.0-7.7 [facility] Anion gap in Serum or Plasma Ordered By: Safia Ruelas on 10-15-2024 Anion gap [Moles/Vol] 12 mmol/L 5-15 [facility] [place] Automated lymphocyte count a s percentage of total leukocytesOrdered By: Safia Ruelas on 10-15-2024 Lymphocytes/100 WBC Auto (Unsp spec) 36.7 % 19-41 [facility] BUN/creatinine ratioOrdered By: jean marielas vegasskye Ruelas on 10-15-2024 Urea nitrogen/Creatinine [Mass ratio] 36.5 mg/mg High 10-20 [facility] Basophil percentageOrdered B y: Safia Ruelas on 10-15-2024 Basophils/100 WBC (Bld) 0.7 % 0-1 [facility] Carbon dioxide, total [Moles /volume] in Central venous bloodOrdered By: Safia Ruelas on 10-15-2024 CO2 [Moles/Vol] 25.2 mmol/L 21.0-32.0 [facility] Chloride assayOrdered By: Balbir Ruelas on 10-15-2024 Chloride [Moles/Vol] 100 mmol/L 98-108 [facility] Eosinophil percentageOrdered By: sherry Ruelas on 10-15-2024 Eosinophils/100 WBC (Bld) 2.4 % 0-5 [facility] Erythrocyte distribution wid th ratioOrdered By: sherry Ruelas on 10-15-2024 Erythrocyte distribution width (RBC) [Ratio] 13.5 % 11.6-14.6 [facility] Erythrocyte distribution wid th standard deviationOrdered By: sherry Ruelas on 10-15-2024 Erythrocyte distribution width (RBC) [Ratio] 45.2 fl High 35.1-43.9 [facility] Glomerular filtration rate ( GFR) estimation/1.73 sq m using serum, plasma, or whole bOrdered By: Safia Ruelas on 10-15-2024 GFR/1.73 sq M.predicted among non-blacks MDRD (S/P/Bld) [Vol rate/Area] 71 mL/min/{1.73_m2} >60 [facility] Comment on above: mL/min/1.73m2 CKD-EP I Creatinine Equation (2020) Hematocrit Auto (Bld) [Volum e fraction]Ordered By: Leonideslas vegasskye Ruelas on 10-15-2024 Hematocrit (Bld) [Volume fraction] 40.3 % 37-47 [facility] Hemoglobin measurementOrdere d By: Safia Ruelas on 10-15-2024 Hemoglobin (Bld) [Mass/Vol] 13.3 g/dL 12.0-15.0 [facility] Immature granulocytes/100 WB C Auto (Bld)Ordered By: Safia Ruelas on 10-15-2024 Immature granulocytes/100 WBC (Bld) 0.400 % 0.0-0.9 [facility] Comment on above: IG% - Immature Granu locytes (promyelocytes, myelocytes and metamyelocytes) > 1% indicates that a LEFT SHIFT is Present. MCV (mean corpuscular volume ) determinationOrdered By: Safia Ruelas on 10-15-2024 MCV (RBC) [Entitic vol] 91.0 fL 81-99 [facility] Mean corpuscular hemoglobin (MCH) determinationOrdered By: Safia Ruelas on 10-15-2024 MCH (RBC) [Entitic mass] 30.0 pg 27.0-32.0 [facility] Mean corpuscular hemoglobin concentration (MCHC) determinationOrdered By: Safia Ruelas on 10-15-2024 MCHC (RBC) [Mass/Vol] 33.0 g/dL 32-36 [facility] [place] Mean platelet volume determi nationOrdered By: Safia Ruelas on 10-15-2024 Platelet mean volume (Bld) [Entitic vol] 11.9 fL 6.2-12.0 [facility] Monocyte percentageOrdered B y: Safia Ruelas on 10-15-2024 Monocytes/100 WBC (Bld) 8.2 % 0-10 [facility] Neutrophil percentageOrdered By: Safia Ruelas on 10-15-2024 Neutrophils/100 WBC (Bld) 51.6 % 47-70 [facility] Nucleated red blood cell per centageOrdered By: Safia Ruelas on 10-15-2024 Nucleated RBC/100 WBC (Bld) [Ratio] 0 % 0-5 [facility] Platelet countOrdered By: Balbir Ruelas on 10-15-2024 Platelets (Bld) [#/Vol] 221 10*3/uL 150-450 [facility] Potassium measurement (mass/ volume)Ordered By: Safia Ruelas on 10-15-2024 Potassium (Unsp spec) [Mass/Vol] 3.8 mmol/L 3.3-5.1 [facility] RBC Auto (Bld) [#/Vol]Ordere d By: Safia Ruelas on 10-15-2024 RBC (Bld) [#/Vol] 4.43 10*6/uL 4.2-5.4 [facility] Serum creatinine measurement (mass/volume)Ordered By: Safia Ruelas on 10-15-2024 Creatinine [Mass/Vol] 0.83 mg/dL 0.70-1.20 [facility] Serum glucose measurement (m ass/volume)Ordered By: Safia Ruelas on 10-15-2024 Glucose [Mass/Vol] 68 mg/dL Low 70-99 [facility] Serum or plasma calcium dayna urement (mass/volume)Ordered By: Safia Ruelas on 10-15-2024 Calcium [Mass/Vol] 9.3 mg/dL 7.6-11.0 [facility] Serum or plasma urea nitroge n measurement (mass/volume)Ordered By: Safia Ruelas on 10-15-2024 Urea nitrogen [Mass/Vol] 30 mg/dL High 4-19 [facility] Sodium levelOrdered By: Leonides Ruelas on 10-15-2024 Sodium [Moles/Vol] 138 mmol/L 133-145 [facility] White blood cell (WBC) count Ordered By: Safia Ruelas on 10-15-2024 WBC (Bld) [#/Vol] 8.3 10*3/uL 4.4-11.0 [facility] Absolute lymphocyte countOrd ered By: Safia Ruelas on 10-08-2024 Lymphocytes Auto (Unsp spec) [#/Vol] 2.52 10*3/uL 0.83-4.51 [facility] Absolute neutrophil countOrd ered By: Safia Ruelas on 10-08-2024 Neutrophils (Bld) [#/Vol] 4.9 10*3/uL 2.0-7.7 [facility] Anion gap in Serum or Plasma Ordered By: Safia Ruelas on 10-08-2024 Anion gap [Moles/Vol] 14 mmol/L 5-15 [facility] [place] Automated lymphocyte count a s percentage of total leukocytesOrdered By: Safia Ruelas on 10-08-2024 Lymphocytes/100 WBC Auto (Unsp spec) 29.4 % 19-41 [facility] BUN/creatinine ratioOrdered By: Safia Ruelas on 10-08-2024 Urea nitrogen/Creatinine [Mass ratio] 34.1 mg/mg High 10-20 [facility] Basophil percentageOrdered B y: Safia Ruelas on 10-08-2024 Basophils/100 WBC (Bld) 0.7 % 0-1 [facility] Carbon dioxide, total [Moles /volume] in Central venous bloodOrdered By: Safia Ruelas on 10-08-2024 CO2 [Moles/Vol] 24.0 mmol/L 21.0-32.0 [facility] Chloride assayOrdered By: Balbir Ruelas on 10-08-2024 Chloride [Moles/Vol] 100 mmol/L 98-108 [facility] Eosinophil percentageOrdered By: Safia Ruelas on 10-08-2024 Eosinophils/100 WBC (Bld) 2.6 % 0-5 [facility] Erythrocyte distribution wid th ratioOrdered By: Safia Ruelas on 10-08-2024 Erythrocyte distribution width (RBC) [Ratio] 13.2 % 11.6-14.6 [facility] Erythrocyte distribution wid th standard deviationOrdered By: Safia Ruelas on 10-08-2024 Erythrocyte distribution width (RBC) [Ratio] 45.3 fl High 35.1-43.9 [facility] Glomerular filtration rate ( GFR) estimation/1.73 sq m using serum, plasma, or whole bOrdered By: Safia Ruelas on 10-08-2024 GFR/1.73 sq M.predicted among non-blacks MDRD (S/P/Bld) [Vol rate/Area] 65 mL/min/{1.73_m2} >60 [facility] Comment on above: mL/min/1.73m2 CKD-EP I Creatinine Equation (2020) Hematocrit Auto (Bld) [Volum e fraction]Ordered By: jean marielas vegasskye Ruelas on 10-08-2024 Hematocrit (Bld) [Volume fraction] 41.7 % 37-47 [facility] Hemoglobin measurementOrdere d By: Safia Ruelas on 10-08-2024 Hemoglobin (Bld) [Mass/Vol] 13.3 g/dL 12.0-15.0 [facility] Immature granulocytes/100 WB C Auto (Bld)Ordered By: Safia Ruelas on 10-08-2024 Immature granulocytes/100 WBC (Bld) 0.400 % 0.0-0.9 [facility] Comment on above: IG% - Immature Granu locytes (promyelocytes, myelocytes and metamyelocytes) > 1% indicates that a LEFT SHIFT is Present. MCV (mean corpuscular volume ) determinationOrdered By: Safia Ruelas on 10-08-2024 MCV (RBC) [Entitic vol] 92.7 fL 81-99 [facility] Mean corpuscular hemoglobin (MCH) determinationOrdered By: Safia Ruelas 10-08-2024 MCH (RBC) [Entitic mass] 29.6 pg 27.0-32.0 [facility] Mean corpuscular hemoglobin concentration (MCHC) determinationOrdered By: Safia Ruelas 10-08-2024 MCHC (RBC) [Mass/Vol] 31.9 g/dL Low 32-36 [facility] Mean platelet volume determi nationOrdered By: Safia Ruelas on 10-08-2024 Platelet mean volume (Bld) [Entitic vol] 11.0 fL 6.2-12.0 [facility] Monocyte percentageOrdered B y: Safia Cheoquyen on 10-08-2024 Monocytes/100 WBC (Bld) 9.2 % 0-10 [facility] Neutrophil percentageOrdered By: Safia Cheobonimelanie on 10-08-2024 Neutrophils/100 WBC (Bld) 57.7 % 47-70 [facility] Nucleated red blood cell per centageOrdered By: Safia Cheoquyen on 10-08-2024 Nucleated RBC/100 WBC (Bld) [Ratio] 0 % 0-5 [facility] Platelet countOrdered By: Balbir sherry Cheoquyen on 10-08-2024 Platelets (Bld) [#/Vol] 323 10*3/uL 150-450 [facility] Potassium measurement (mass/ volume)Ordered By: Bandarskye Griderbonimelanie on 10-08-2024 Potassium (Unsp spec) [Mass/Vol] 4.1 mmol/L 3.3-5.1 [facility] RBC Auto (Bld) [#/Vol]Ordere d By: Safia Cheoquyen on 10-08-2024 RBC (Bld) [#/Vol] 4.50 10*6/uL 4.2-5.4 [facility] Serum creatinine measurement (mass/volume)Ordered By: Balbirsherry Griderbonimelanie on 10-08-2024 Creatinine [Mass/Vol] 0.90 mg/dL 0.70-1.20 [facility] Serum glucose measurement (m ass/volume)Ordered By: Balbirsherry Griderbonimelanie on 10-08-2024 Glucose [Mass/Vol] 82 mg/dL 70-99 [facility] Serum or plasma calcium dayna urement (mass/volume)Ordered By: Safia Ruelas on 10-08-2024 Calcium [Mass/Vol] 9.6 mg/dL 7.6-11.0 [facility] Serum or plasma urea nitroge n measurement (mass/volume)Ordered By: Safia Ruelas on 10-08-2024 Urea nitrogen [Mass/Vol] 31 mg/dL High 4-19 [facility] Sodium levelOrdered By: Leonides Ruelas on 10-08-2024 Sodium [Moles/Vol] 138 mmol/L 133-145 [facility] White blood cell (WBC) count Ordered By: Safia Ruelas on 10-08-2024 WBC (Bld) [#/Vol] 8.6 10*3/uL 4.4-11.0 [facility] 12 Lead EKG performed by [facility] on 10-02-2024 12 Lead EKG performed by [facility] [address] [place] [id number] Lead EKG performed by [facility] 10/02/24920 MR#: [id number] Acct: [id number] Name: LINDSAY ACUNA Rep #: [id number] : 1945 78 From: Mj Benavides MD Attending Dr: Dr. Mj Benavides MD Status: DEP A MB Ordering Dr: Mj Benavides MD Date: 10/02/24 [place] [facility] [place]: F C Admitted: BMS/12 Lead EKG performed by [facility] ECG Report Interpretation ---Atrial fibrillation -irregular conduction -Old anterior infarct. ABNORMAL Electronically signed on 10/02/2024 at 16:06 by Mj Benavideswood Software Version [id number] 10/02/24 1608 Date Mj Benavides MD CC: Dr. Kameron Caruso MD Date Dictated: 10/02/24920 Date Transcribed: 10/02/24920 Blade Filer: [place] Signed Normal [facility] Cardiology Visit Reporton Cardiology Visit Report [facility] [address] [place] [address] OFFICE VISIT Date of Service: 10/02/24 MR#: [id number] Acct: [id number] Name: LINDSAY ACUNA Rep #: [id number] : 1945 Provider: Dr. Mj Benavides MD Age/Sex: 78/F Location: [facility] Status: Signed HPI HPI History of [...] W/C bound Intake Visit Reasons: AFIB (Zuly) [employer] Required: No Accompanied by: Significant Other Is [...] you fallen in the past year?: Yes [facility] Medical History Acute ischemic right MCA stroke [...] normal, nasal (more content not included)... Normal [facility] Absolute lymphocyte countOrd ered By: Safia Ruelas on 10-01-2024 Lymphocytes Auto (Unsp spec) [#/Vol] 2.45 10*3/uL 0.83-4.51 [facility] Absolute neutrophil countOrd ered By: Safia Ruelas on 10-01-2024 Neutrophils (Bld) [#/Vol] 6.5 10*3/uL 2.0-7.7 [facility] Anion gap in Serum or Plasma Ordered By: Safia Ruelas on 10-01-2024 Anion gap [Moles/Vol] 12 mmol/L 5-15 [facility] [place] Automated lymphocyte count a s percentage of total leukocytesOrdered By: Safia Ruelas on 10-01-2024 Lymphocytes/100 WBC Auto (Unsp spec) 23.1 % 19-41 [facility] BUN/creatinine ratioOrdered By: Safia Ruelas on 10-01-2024 Urea nitrogen/Creatinine [Mass ratio] 24.9 mg/mg High 10- [facility] Basophil percentageOrdered B y: Safia Ruelas on 10-01-2024 Basophils/100 WBC (Bld) 0.5 % 0-1 [facility] Carbon dioxide, total [Moles /volume] in Central venous bloodOrdered By: Safia Ruelas on 10-01-2024 CO2 [Moles/Vol] 24.4 mmol/L 21.0-32.0 [facility] Chloride assayOrdered By: Balbir Ruelas on 10-01-2024 Chloride [Moles/Vol] 99 mmol/L 98-108 [facility] Eosinophil percentageOrdered By: Safia Ruelas on 10-01-2024 Eosinophils/100 WBC (Bld) 2.0 % 0-5 [facility] Erythrocyte distribution wid th ratioOrdered By: Safia Ruelas on 10-01-2024 Erythrocyte distribution width (RBC) [Ratio] 13.5 % 11.6-14.6 [facility] Erythrocyte distribution wid th standard deviationOrdered By: Safia Ruelas on 10-01-2024 Erythrocyte distribution width (RBC) [Ratio] 46.2 fl High 35.1-43.9 [facility] Glomerular filtration rate ( GFR) estimation/1.73 sq m using serum, plasma, or whole bOrdered By: Safia Ruelas on 10-01-2024 GFR/1.73 sq M.predicted among non-blacks MDRD (S/P/Bld) [Vol rate/Area] 63 mL/min/{1.73_m2} >60 [facility] Comment on above: mL/min/1.73m2 CKD-EP I Creatinine Equation (2020) Hematocrit Auto (Bld) [Volum e fraction]Ordered By: Safia Ruelas on 10-01-2024 Hematocrit (Bld) [Volume fraction] 38.7 % 37-47 [facility] Hemoglobin measurementOrdere d By: Safia Ruelas on 10-01-2024 Hemoglobin (Bld) [Mass/Vol] 12.5 g/dL 12.0-15.0 [facility] Immature granulocytes/100 WB C Auto (Bld)Ordered By: Safia Ruelas 10-01-2024 Immature granulocytes/100 WBC (Bld) 0.800 % 0.0-0.9 [facility] Comment on above: IG% - Immature Granu locytes (promyelocytes, myelocytes and metamyelocytes) > 1% indicates that a LEFT SHIFT is Present. MCV (mean corpuscular volume ) determinationOrdered By: Safia Ruelas 10-01-2024 MCV (RBC) [Entitic vol] 93.3 fL 81-99 [facility] Mean corpuscular hemoglobin (MCH) determinationOrdered By: Safia Ruelas on 10-01-2024 MCH (RBC) [Entitic mass] 30.1 pg 27.0-32.0 [facility] Mean corpuscular hemoglobin concentration (MCHC) determinationOrdered By: Safia Ruelas on 10-01-2024 MCHC (RBC) [Mass/Vol] 32.3 g/dL 32-36 [facility] Mean platelet volume determi nationOrdered By: Safia Ruelas on 10-01-2024 Platelet mean volume (Bld) [Entitic vol] 11.7 fL 6.2-12.0 [facility] Monocyte percentageOrdered B y: Safia Ruelas on 10-01-2024 Monocytes/100 WBC (Bld) 12.7 % High 0-10 [facility] Neutrophil percentageOrdered By: Safia Ruelas on 10-01-2024 Neutrophils/100 WBC (Bld) 60.9 % 47-70 [facility] Nucleated red blood cell per centageOrdered By: Safia Ruelas on 10-01-2024 Nucleated RBC/100 WBC (Bld) [Ratio] 0 % 0-5 [facility] Platelet countOrdered By: Balbir Ruelas on 10-01-2024 Platelets (Bld) [#/Vol] 371 10*3/uL 150-450 [facility] Potassium measurement (mass/ volume)Ordered By: Safia Ruelas on 10-01-2024 Potassium (Unsp spec) [Mass/Vol] 4.2 mmol/L 3.3-5.1 [facility] RBC Auto (Bld) [#/Vol]Ordere d By: Safia Ruelas on 10-01-2024 RBC (Bld) [#/Vol] 4.15 10*6/uL Low 4.2-5.4 [facility] Serum creatinine measurement (mass/volume)Ordered By: Safia Ruelas on 10-01-2024 Creatinine [Mass/Vol] 0.93 mg/dL 0.70-1.20 [facility] Serum glucose measurement (m ass/volume)Ordered By: Safia Ruelas on 10-01-2024 Glucose [Mass/Vol] 93 mg/dL 70-99 [facility] Serum or plasma calcium dayna urement (mass/volume)Ordered By: Safia Ruelas on 10-01-2024 Calcium [Mass/Vol] 9.5 mg/dL 7.6-11.0 [facility] Serum or plasma urea nitroge n measurement (mass/volume)Ordered By: Safia Ruelas on 10-01-2024 Urea nitrogen [Mass/Vol] 23 mg/dL High 4-19 [facility] Sodium levelOrdered By: Leonides jiménezradha Jessenia on 10-01-2024 Sodium [Moles/Vol] 135 mmol/L 133-145 [facility] White blood cell (WBC) count Ordered By: Safia Ruelas on 10-01-2024 WBC (Bld) [#/Vol] 10.6 10*3/uL 4.4-11.0 [facility] Clostridium difficile detect ion by polymerase chain reactionOrdered By: Safia Ruelas on 09-29-2024 C. difficile DNA CHUCKY+probe Ql (Unsp spec) [facility] Absolute lymphocyte countOrd ered By: Safia Ruelas on 09-24-2024 Lymphocytes Auto (Unsp spec) [#/Vol] 2.72 10*3/uL 0.83-4.51 [facility] Absolute neutrophil countOrd ered By: Safia Ruelas on 09-24-2024 Neutrophils (Bld) [#/Vol] 6.3 10*3/uL 2.0-7.7 [facility] Anion gap in Serum or Plasma Ordered By: Safia Ruelas on 09-24-2024 Anion gap [Moles/Vol] 12 mmol/L 5-15 [facility] [place] Automated lymphocyte count a s percentage of total leukocytesOrdered By: Safia Ruelas on 09-24-2024 Lymphocytes/100 WBC Auto (Unsp spec) 26.3 % 19-41 [facility] BUN/creatinine ratioOrdered By: Safia Ruelas on 09-24-2024 Urea nitrogen/Creatinine [Mass ratio] 36.4 mg/mg High 10-20 [facility] Basophil percentageOrdered B y: Safia Ruelas on 09-24-2024 Basophils/100 WBC (Bld) 0.7 % 0-1 [facility] Carbon dioxide, total [Moles /volume] in Central venous bloodOrdered By: Safia Cheobonimelanie on 09-24-2024 CO2 [Moles/Vol] 24.1 mmol/L 21.0-32.0 [facility] Chloride assayOrdered By: Balbir sherry Cheobonimelanie on 09-24-2024 Chloride [Moles/Vol] 100 mmol/L 98-108 [facility] Eosinophil percentageOrdered By: Safia Cheoquyen on 09-24-2024 Eosinophils/100 WBC (Bld) 2.7 % 0-5 [facility] Erythrocyte distribution wid th ratioOrdered By: Safia Westonmelanie on 09-24-2024 Erythrocyte distribution width (RBC) [Ratio] 13.6 % 11.6-14.6 [facility] Erythrocyte distribution wid th standard deviationOrdered By: Safia Ruelas on 09-24-2024 Erythrocyte distribution width (RBC) [Ratio] 47.1 fl High 35.1-43.9 [facility] Glomerular filtration rate ( GFR) estimation/1.73 sq m using serum, plasma, or whole bOrdered By: Safia Cheoquyen on 09-24-2024 GFR/1.73 sq M.predicted among non-blacks MDRD (S/P/Bld) [Vol rate/Area] 62 mL/min/{1.73_m2} >60 [facility] Comment on above: mL/min/1.73m2 CKD-EP I Creatinine Equation (2020) Hematocrit Auto (Bld) [Volum e fraction]Ordered By: Safia Ruelas on 09-24-2024 Hematocrit (Bld) [Volume fraction] 41.2 % 37-47 [facility] Hemoglobin measurementOrdere d By: Safia Griderbonimelanie on 09-24-2024 Hemoglobin (Bld) [Mass/Vol] 13.0 g/dL 12.0-15.0 [facility] Immature granulocytes/100 WB C Auto (Bld)Ordered By: Safia Ruelas on 09-24-2024 Immature granulocytes/100 WBC (Bld) 1.000 % High 0.0-0.9 [facility] Comment on above: IG% - Immature Granu locytes (promyelocytes, myelocytes and metamyelocytes) > 1% indicates that a LEFT SHIFT is Present. MCV (mean corpuscular volume ) determinationOrdered By: Safia Ruelas on 09-24-2024 MCV (RBC) [Entitic vol] 94.3 fL 81-99 [facility] Mean corpuscular hemoglobin (MCH) determinationOrdered By: Safia Ruelas on 09-24-2024 MCH (RBC) [Entitic mass] 29.7 pg 27.0-32.0 [facility] Mean corpuscular hemoglobin concentration (MCHC) determinationOrdered By: Safia Ruelas on 09-24-2024 MCHC (RBC) [Mass/Vol] 31.6 g/dL Low 32-36 [facility] [place] Mean platelet volume determi nationOrdered By: Safia Ruelas on 09-24-2024 Platelet mean volume (Bld) [Entitic vol] 11.3 fL 6.2-12.0 [facility] Monocyte percentageOrdered B y: Safia Ruelas on 09-24-2024 Monocytes/100 WBC (Bld) 8.9 % 0-10 [facility] Neutrophil percentageOrdered By: Safia Ruelas on 09-24-2024 Neutrophils/100 WBC (Bld) 60.4 % 47-70 [facility] Nucleated red blood cell per centageOrdered By: Safia Ruelas on 09-24-2024 Nucleated RBC/100 WBC (Bld) [Ratio] 0 % 0-5 [facility] Platelet countOrdered By: Balbir Ruelas on 09-24-2024 Platelets (Bld) [#/Vol] 441 10*3/uL 150-450 [facility] Potassium measurement (mass/ volume)Ordered By: Safia Ruelas on 09-24-2024 Potassium (Unsp spec) [Mass/Vol] 4.3 mmol/L 3.3-5.1 [facility] RBC Auto (Bld) [#/Vol]Ordere d By: aSfia Ruelas on 09-24-2024 RBC (Bld) [#/Vol] 4.37 10*6/uL 4.2-5.4 [facility] Serum creatinine measurement (mass/volume)Ordered By: Safia Ruelas on 09-24-2024 Creatinine [Mass/Vol] 0.93 mg/dL 0.70-1.20 [facility] [place] Serum glucose measurement (m ass/volume)Ordered By: Safia Ruelas on 09-24-2024 Glucose [Mass/Vol] 48 mg/dL Low 70-99 [facility] Serum or plasma calcium dayna urement (mass/volume)Ordered By: Safia Ruelas on 09-24-2024 Calcium [Mass/Vol] 9.5 mg/dL 7.6-11.0 [facility] Serum or plasma urea nitroge n measurement (mass/volume)Ordered By: Safia Ruelas on 09-24-2024 Urea nitrogen [Mass/Vol] 34 mg/dL High 4-19 [facility] Sodium levelOrdered By: Leonides josé antonio Jessenia on 09-24-2024 Sodium [Moles/Vol] 136 mmol/L 133-145 [facility] White blood cell (WBC) count Ordered By: Safia Ruelas on 09-24-2024 WBC (Bld) [#/Vol] 10.4 10*3/uL 4.4-11.0 [facility] Absolute lymphocyte countOrd ered By: Safia Ruelas on 09-17-2024 Lymphocytes Auto (Unsp spec) [#/Vol] 2.52 10*3/uL 0.83-4.51 [facility] Absolute neutrophil countOrd ered By: Safia Ruelas on 09-17-2024 Neutrophils (Bld) [#/Vol] 5.8 10*3/uL 2.0-7.7 [facility] Anion gap in Serum or Plasma Ordered By: Safia Ruelas on 09-17-2024 Anion gap [Moles/Vol] 12 mmol/L 5-15 [facility] [place] Automated lymphocyte count a s percentage of total leukocytesOrdered By: Safia Ruelas on 09-17-2024 Lymphocytes/100 WBC Auto (Unsp spec) 26.3 % 19-41 [facility] BUN/creatinine ratioOrdered By: Safia Ruelas on 09-17-2024 Urea nitrogen/Creatinine [Mass ratio] 45.9 mg/mg High 10-20 [facility] Basophil percentageOrdered B y: Safia Ruelas on 09-17-2024 Basophils/100 WBC (Bld) 0.6 % 0-1 [facility] Calculated very low density lipoprotein (VLDL) cholesterol measurementOrdered By: Safia Ruelas on 09-17-2024 Calculated very low density lipoprotein (VLDL) cholesterol measurement 22 mg/dL 5-40 [facility] Carbon dioxide, total [Moles /volume] in Central venous bloodOrdered By: Safia Ruelas on 09-17-2024 CO2 [Moles/Vol] 24.5 mmol/L 21.0-32.0 [facility] Chloride assayOrdered By: Balbir Ruelas on 09-17-2024 Chloride [Moles/Vol] 98 mmol/L 98-108 [facility] Eosinophil percentageOrdered By: Safia Ruelas on 09-17-2024 Eosinophils/100 WBC (Bld) 3.2 % 0-5 [facility] Erythrocyte distribution wid th ratioOrdered By: Safia Ruelas on 09-17-2024 Erythrocyte distribution width (RBC) [Ratio] 13.4 % 11.6-14.6 [facility] Erythrocyte distribution wid th standard deviationOrdered By: Safia Ruelas on 09-17-2024 Erythrocyte distribution width (RBC) [Ratio] 45.4 fl High 35.1-43.9 [facility] Glomerular filtration rate ( GFR) estimation/1.73 sq m using serum, plasma, or whole bOrdered By: Safia Ruelas on 09-17-2024 GFR/1.73 sq M.predicted among non-blacks MDRD (S/P/Bld) [Vol rate/Area] 69 mL/min/{1.73_m2} >60 [facility] Comment on above: mL/min/1.73m2 CKD-EP I Creatinine Equation (2020) Hematocrit Auto (Bld) [Volum e fraction]Ordered By: Safia Ruelas on 09-17-2024 Hematocrit (Bld) [Volume fraction] 38.8 % 37-47 [facility] Hemoglobin measurementOrdere d By: Safia Ruelas on 09-17-2024 Hemoglobin (Bld) [Mass/Vol] 12.6 g/dL 12.0-15.0 [facility] Immature granulocytes/100 WB C Auto (Bld)Ordered By: Safia Ruelas on 09-17-2024 Immature granulocytes/100 WBC (Bld) 0.700 % 0.0-0.9 [facility] Comment on above: IG% - Immature Granu locytes (promyelocytes, myelocytes and metamyelocytes) > 1% indicates that a LEFT SHIFT is Present. LDL calc ser/plasOrdered By: Safia Ruelas on 09-17-2024 Cholesterol in LDL [Mass/Vol] 120 mg/dL [facility] Comment on above: Yknstbutnf=696-596 m g/dL & Higher Ledz=231 mg/dL or greater MCV (mean corpuscular volume ) determinationOrdered By: Safia Ruelas on 09-17-2024 MCV (RBC) [Entitic vol] 91.7 fL 81-99 [facility] Mean corpuscular hemoglobin (MCH) determinationOrdered By: Safia Ruelas on 09-17-2024 MCH (RBC) [Entitic mass] 29.8 pg 27.0-32.0 [facility] Mean corpuscular hemoglobin concentration (MCHC) determinationOrdered By: Safia Ruelas on 09-17-2024 MCHC (RBC) [Mass/Vol] 32.5 g/dL 32-36 [facility] [place] Mean platelet volume determi nationOrdered By: Safia Ruelas on 09-17-2024 Platelet mean volume (Bld) [Entitic vol] 11.4 fL 6.2-12.0 [facility] Monocyte percentageOrdered B y: Safia Ruelas on 09-17-2024 Monocytes/100 WBC (Bld) 8.5 % 0-10 [facility] Neutrophil percentageOrdered By: Safia Ruelas on 09-17-2024 Neutrophils/100 WBC (Bld) 60.7 % 47-70 [facility] Nucleated red blood cell per centageOrdered By: Safia Ruelas on 09-17-2024 Nucleated RBC/100 WBC (Bld) [Ratio] 0 % 0-5 [facility] Platelet countOrdered By: Balbir Ruelas on 09-17-2024 Platelets (Bld) [#/Vol] 311 10*3/uL 150-450 [facility] Potassium measurement (mass/ volume)Ordered By: Safia Ruelas on 09-17-2024 Potassium (Unsp spec) [Mass/Vol] 4.1 mmol/L 3.3-5.1 [facility] RBC Auto (Bld) [#/Vol]Ordere d By: Safia Ruelas on 09-17-2024 RBC (Bld) [#/Vol] 4.23 10*6/uL 4.2-5.4 [facility] Screening total cholesterol/ high density lipoprotein (HDL) cholesterol ratioOrdered By: Safia Ruelas on 09-17-2024 Cholesterol.total/Alta sterol in HDL [Mass ratio] 5.38 {ratio} [facility] Serum creatinine measurement (mass/volume)Ordered By: Safia Ruelas on 09-17-2024 Creatinine [Mass/Vol] 0.86 mg/dL 0.70-1.20 [facility] Serum glucose measurement (m ass/volume)Ordered By: Safia Ruelas on 09-17-2024 Glucose [Mass/Vol] 216 mg/dL High 70-99 [facility] Serum or plasma calcium dayna urement (mass/volume)Ordered By: Safia Ruelas on 09-17-2024 Calcium [Mass/Vol] 9.4 mg/dL 7.6-11.0 [facility] Serum or plasma cholesterol in HDL measurement (mass/volume)Ordered By: Safia Ruelas on 09-17-2024 Cholesterol in HDL [Mass/Vol] 33 mg/dL Low >40 [facility] Comment on above: National Cholesterol Education Program (NCEP) guidelines:<40 mg/dL: Low HDL-cholesterol (major risk factor for CHD)>= 60 mg/dL: High HDL-cholesterol (negative risk factor for CHD)HDL-cholesterol is affected by a number of factors, e.g. smoking, exercise, hormones, sex and age. Serum or plasma cholesterol measurement (mass/volume)Ordered By: Safia Ruelas on 09-17-2024 Cholesterol [Mass/Vol] 175 mg/dL <201 [facility] Comment on above: Cholesterol level, D esirable <200 mg/dLBorderline high cholesterol 200-239 mg/dLHigh cholesterol >=240 mg/dLRecommendations of the NCEP Adult Treatment Panel for the following risk-cutoff thresholds for the [place] population. Serum or plasma urea nitroge n measurement (mass/volume)Ordered By: Safia Ruelas on 09-17-2024 Urea nitrogen [Mass/Vol] 39 mg/dL High 4-19 [facility] Sodium levelOrdered By: Leonides Ruelas on 09-17-2024 Sodium [Moles/Vol] 134 mmol/L 133-145 [facility] TSH DL <= 0.005 mIU/L QnOrde red By: Safia Ruelas on 09-17-2024 TSH Qn 3.500 uIU/mL 0.300-4.200 [facility] Triglycerides measurementOrd ered By: Safia Ruelas on 09-17-2024 Triglyceride [Mass/Vol] 111 mg/dL <199 [facility] Comment on above: The drugs N-Acetylcy steine and Metamizole may falsely depress this assay. Normal range: <150 mg/dLBorderline High: 150-199 mg/dLHigh: 200-499 mg/dLVery High: >500 mg/dL White blood cell (WBC) count Ordered By: Safia Ruelas on 09-17-2024 WBC (Bld) [#/Vol] 9.6 10*3/uL 4.4-11.0 [facility] Absolute lymphocyte countOrd ered By: Safia Ruelas on 09-10-2024 Lymphocytes Auto (Unsp spec) [#/Vol] 2.11 10*3/uL 0.83-4.51 [facility] Absolute neutrophil countOrd ered By: Safia Ruelas on 09-10-2024 Neutrophils (Bld) [#/Vol] 8.1 10*3/uL High 2.0-7.7 [facility] Anion gap in Serum or Plasma Ordered By: Safia Ruelas on 09-10-2024 Anion gap [Moles/Vol] 13 mmol/L 5-15 [facility] [place] Automated lymphocyte count a s percentage of total leukocytesOrdered By: Safia Ruelas on 09-10-2024 Lymphocytes/100 WBC Auto (Unsp spec) 17.9 % Low 19-41 [facility] BUN/creatinine ratioOrdered By: Safia Ruelas on 09-10-2024 Urea nitrogen/Creatinine [Mass ratio] 29.1 mg/mg High 10-20 [facility] Basophil percentageOrdered B y: Safia Ruelas on 09-10-2024 Basophils/100 WBC (Bld) 0.3 % 0-1 [facility] Bilirubin, totalOrdered By: sherry Ruelas on 09-10-2024 Bilirubin [Mass/Vol] 0.55 mg/dL 0.00-1.30 [facility] Carbon dioxide, total [Moles /volume] in Central venous bloodOrdered By: Safia Ruelas on 09-10-2024 CO2 [Moles/Vol] 23.6 mmol/L 21.0-32.0 [facility] Chloride assayOrdered By: sherry Ruelas on 09-10-2024 Chloride [Moles/Vol] 97 mmol/L Low 98-108 [facility] Eosinophil percentageOrdered By: Safia Ruelas on 09-10-2024 Eosinophils/100 WBC (Bld) 0.5 % 0-5 [facility] Erythrocyte distribution wid th ratioOrdered By: sherry Ruelas on 09-10-2024 Erythrocyte distribution width (RBC) [Ratio] 13.4 % 11.6-14.6 [facility] Erythrocyte distribution wid th standard deviationOrdered By: Safia Ruelas on 09-10-2024 Erythrocyte distribution width (RBC) [Ratio] 45.2 fl High 35.1-43.9 [facility] Glomerular filtration rate ( GFR) estimation/1.73 sq m using serum, plasma, or whole bOrdered By: Safia Ruelas on 09-10-2024 GFR/1.73 sq M.predicted among non-blacks MDRD (S/P/Bld) [Vol rate/Area] 59 mL/min/{1.73_m2} Low >60 [facility] Comment on above: mL/min/1.73m2 CKD-EP I Creatinine Equation (2020) Hematocrit Auto (Bld) [Volum e fraction]Ordered By: Safia Ruelas on 09-10-2024 Hematocrit (Bld) [Volume fraction] 41.8 % 37-47 [facility] Hemoglobin measurementOrdere d By: Safia Ruelas on 09-10-2024 Hemoglobin (Bld) [Mass/Vol] 13.4 g/dL 12.0-15.0 [facility] Immature granulocytes/100 WB C Auto (Bld)Ordered By: Safia Ruelas 09-10-2024 Immature granulocytes/100 WBC (Bld) 0.800 % 0.0-0.9 [facility] Comment on above: IG% - Immature Granu locytes (promyelocytes, myelocytes and metamyelocytes) > 1% indicates that a LEFT SHIFT is Present. Laboratory - Chemistry and C hemistry - challengeOrdered By: Safia Ruelas on 09-10-2024 AST [Catalytic activity/Vol] 21 U/L <32 [facility] MCV (mean corpuscular volume ) determinationOrdered By: Safia Ruelas 09-10-2024 MCV (RBC) [Entitic vol] 92.5 fL 81-99 [facility] Mean corpuscular hemoglobin (MCH) determinationOrdered By: Safia Ruelas 09-10-2024 MCH (RBC) [Entitic mass] 29.6 pg 27.0-32.0 [facility] Mean corpuscular hemoglobin concentration (MCHC) determinationOrdered By: Safia Ruelas on 09-10-2024 MCHC (RBC) [Mass/Vol] 32.1 g/dL 32-36 [facility] [place] Mean platelet volume determi nationOrdered By: Safia Ruelas on 09-10-2024 Platelet mean volume (Bld) [Entitic vol] 12.6 fL High 6.2-12.0 [facility] Monocyte percentageOrdered B y: Safia Ruelas on 09-10-2024 Monocytes/100 WBC (Bld) 12.3 % High 0-10 [facility] Neutrophil percentageOrdered By: sherry Ruelas on 09-10-2024 Neutrophils/100 WBC (Bld) 68.2 % 47-70 [facility] No Panel InformationOrdered By: Safia Ruelas on 09-10-2024 21 U/L <32 [facility] Nucleated red blood cell per centageOrdered By: Leonideslas vegasskye Ruelas on 09-10-2024 Nucleated RBC/100 WBC (Bld) [Ratio] 0 % 0-5 [facility] Platelet countOrdered By: Balbir jean mariejosé antonio Ruelas on 09-10-2024 Platelets (Bld) [#/Vol] 190 10*3/uL 150-450 [facility] Potassium measurement (mass/ volume)Ordered By: Safia Ruelas on 09-10-2024 Potassium (Unsp spec) [Mass/Vol] 4.3 mmol/L 3.3-5.1 [facility] RBC Auto (Bld) [#/Vol]Ordere d By: Safia Ruelas on 09-10-2024 RBC (Bld) [#/Vol] 4.52 10*6/uL 4.2-5.4 [facility] Serum creatinine measurement (mass/volume)Ordered By: Safia Ruelas on 09-10-2024 Creatinine [Mass/Vol] 0.98 mg/dL 0.70-1.20 [facility] Serum globulin measurementOr dered By: Safia Ruelas on 09-10-2024 Globulin (S) [Mass/Vol] 3.3 g/dL 2.2-4.2 [facility] Serum glucose measurement (m ass/volume)Ordered By: Safia Ruelas on 09-10-2024 Glucose [Mass/Vol] 181 mg/dL High 70-99 [facility] Serum or plasma alanine raymundo otransferase (ALT) measurementOrdered By: Safia Ruelas on 09-10-2024 ALT [Catalytic activity/Vol] 26 U/L <35 [facility] Serum or plasma albumin dayna urement (mass/volume)Ordered By: Safia Ruelas on 09-10-2024 Albumin [Mass/Vol] 3.4 g/dL 3.4-4.8 [facility] Serum or plasma albumin/glob ulin mass ratioOrdered By: Safia Ruelas on 09-10-2024 Albumin/Globulin [Mass ratio] 1.0 {ratio} 0.9-2.4 [facility] Serum or plasma alkaline hannah sphatase measurementOrdered By: Safia Ruelas on 09-10-2024 ALP [Catalytic activity/Vol] 114 U/L High 35-104 [facility] Serum or plasma calcium dayna urement (mass/volume)Ordered By: Safia Ruelas on 09-10-2024 Calcium [Mass/Vol] 9.3 mg/dL 7.6-11.0 [facility] Serum or plasma urea nitroge n measurement (mass/volume)Ordered By: Safia Ruelas on 09-10-2024 Urea nitrogen [Mass/Vol] 29 mg/dL High 4-19 [facility] Sodium levelOrdered By: Leonides Ruelas on 09-10-2024 Sodium [Moles/Vol] 133 mmol/L 133-145 [facility] Total proteinOrdered By: Augusto Ruelas on 09-10-2024 Protein [Mass/Vol] 6.7 g/dL 5.9-8.4 [facility] White blood cell (WBC) count Ordered By: Safia Ruelas on 09-10-2024 WBC (Bld) [#/Vol] 11.8 10*3/uL High 4.4-11.0 [facility] LABORATORYOrdered By: Abigail Smith on 09-09-2024 Glucose [Mass/Vol] 212 mg/dL High 82 - 115 mg/dL [employer] [employer] Work Phone: Glucose [Mass/Vol] 226 mg/dL High 82 - 115 mg/dL [facility] Work Phone: LABORATORYOrdered By: Zoila Zarco on 09-08-2024 Glucose [Mass/Vol] 149 mg/dL High 82 - 115 mg/dL [facility] [employer] Work Phone: LABORATORYOrdered By: Rob Palmer on 09-08-2024 Blood Glucose Testing Reason Routine (09/08/24 6:16 PM) [employer] Work Phone: Blood Glucose Testing Reason Routine (09/08/24 11:58 AM) [employer] Work Phone: LABORATORYOrdered By: Rob Palmer on 09-07-2024 Blood Glucose Testing Reason Routine (09/07/24 4:46 PM) [facility] Work Phone: .Auto Diffon 09-03-2024 Basophil, Absolute 0.1 10 3/mcL Normal 0.0-0.3 [facility] Comment on above: Performed By: #### A DIFF, CBC, ANEU, GFR, BMP #### [address] [address] Basophils/100 WBC (Bld) 1.0 % Normal 0.0-2.5 [facility] Comment on above: Performed By: #### A DIFF, CBC, ANEU, GFR, BMP #### [address] [address] Eosinophil, Absolute 0.2 10 3/mcL Normal 0.0-0.7 [facility] Comment on above: Performed By: #### A DIFF, CBC, ANEU, GFR, BMP #### [address] [address] Eosinophils/100 WBC (Bld) 3.2 % Normal 0.0-6.0 [facility] Comment on above: Performed By: #### A DIFF, CBC, ANEU, GFR, BMP #### [address] [address] Lymphocyte, Absolute 2.0 10 3/mcL Normal 0.9-4.3 [facility] Comment on above: Performed By: #### A DIFF, CBC, ANEU, GFR, BMP #### [address] [address] Lymphocytes/100 WBC (Bld) 26.6 % Normal 20.0-40.0 [facility] Comment on above: Performed By: #### A DIFF, CBC, ANEU, GFR, BMP #### [address] [address] Monocyte, Absolute 0.7 10 3/mcL Normal 0.1-1.4 [facility] Comment on above: Performed By: #### A DIFF, CBC, ANEU, GFR, BMP #### [address] [address] Monocytes/100 WBC (Bld) 9.7 % Normal 2.0-13.0 [facility] Comment on above: Performed By: #### A DIFF, CBC, ANEU, GFR, BMP #### [address] [address] Neutrophils/100 WBC (Bld) 59.5 % Normal 50.0-75.0 [facility] Comment on above: Performed By: #### A DIFF, CBC, ANEU, GFR, BMP #### [address] [address] .GFRon 09-03-2024 Estimated Glomerular Filtration Rate 57 ml/min/1.73sqm Normal [facility] Comment on above: Result Comment: Stages [...] A DIFF, CBC, ANEU, GFR, BMP #### [place] [address] .NEUABSon 09-03-2024 Neutrophil, Absolute 4.5 10 3/mcL Normal 2.3-8.1 [facility] Comment on above: Performed By: #### A DIFF, CBC, ANEU, GFR, BMP #### [place] [address] B12on 09-03-2024 Cobalamin (Vitamin B12) [Mass/Vol] 834 pg/mL Normal 211-911 [facility] Comment on above: Performed By: #### A DIFF, CBC, ANEU, GFR, BMP #### [place] [address] CBCon 09-03-2024 Erythrocyte distribution width (RBC) [Ratio] 14.7 % Normal 11.5-15.5 [facility] Comment on above: Performed By: #### A DIFF, CBC, ANEU, GFR, BMP #### [place] [address] Hematocrit (Bld) [Volume fraction] 39.7 % Normal 34.0-46.0 [facility] Comment on above: Performed By: #### A DIFF, CBC, ANEU, GFR, BMP #### [place] [address] Hgb 13.2 G/dL Normal 12.0-16.0 [facility] Comment on above: Performed By: #### A DIFF, CBC, ANEU, GFR, BMP #### [place] [address] MCH (RBC) [Entitic mass] 30.6 pg Normal 27.0-33.0 [facility] Comment on above: Performed By: #### A DIFF, CBC, ANEU, GFR, BMP #### [place] [address] MCHC 33.3 G/dL Normal 32.0-36.0 [facility] Comment on above: Performed By: #### A DIFF, CBC, ANEU, GFR, BMP #### [address] [address] MCV (RBC) [Entitic vol] 91.9 fL Normal 80.0-99.0 [facility] Comment on above: Performed By: #### A DIFF, CBC, ANEU, GFR, BMP #### [address] [address] Platelet 228 10 3/mcL Normal 150-450 [facility] Comment on above: Performed By: #### A DIFF, CBC, ANEU, GFR, BMP #### [address] [address] Platelet mean volume (Bld) [Entitic vol] 10.1 fL Normal 6.6-10.5 [facility] Comment on above: Performed By: #### A DIFF, CBC, ANEU, GFR, BMP #### [place] [id number] RBC 4.32 10 6/mcL Normal 4.10-5.30 [facility] Comment on above: Performed By: #### A DIFF, CBC, ANEU, GFR, BMP #### [address] [address] WBC 7.6 10 3/mcL Normal 4.5-10.8 [facility] Comment on above: Performed By: #### A DIFF, CBC, ANEU, GFR, BMP #### [address] [address] CMPon 09-03-2024 Albumin Level 3.0 G/dL Low 3.2-4.8 [facility] Comment on above: Performed By: #### A DIFF, CBC, ANEU, GFR, BMP #### [address] [address] Albumin/Globulin [Mass ratio] 0.9 {ratio} Normal 0.9-1.6 [facility] Comment on above: Performed By: #### A DIFF, CBC, ANEU, GFR, BMP #### [address] [address] ALP [Catalytic activity/Vol] 115 U/L Normal 38-126 [facility] Comment on above: Performed By: #### A DIFF, CBC, ANEU, GFR, BMP #### [address] [address] ALT [Catalytic activity/Vol] 37 U/L Normal 10-49 [facility] Comment on above: Performed By: #### A DIFF, CBC, ANEU, GFR, BMP #### [address] [address] AST [Catalytic activity/Vol] 31 U/L Normal 8-34 [facility] Comment on above: Performed By: #### A DIFF, CBC, ANEU, GFR, BMP #### [address] [address] Bili Total 0.50 mg/dL Normal 0.20-1.20 [facility] Comment on above: Result Comment: Use of this assay is not recommended for patients undergoing treatment with eltrombopag due to the potential for falsely elevated results. Performed By: #### A DIFF, CBC, ANEU, GFR, BMP #### [place] [id number] BUN/Creatinine Ratio 29.7 ratio High 10.0-22.0 [facility] Comment on above: Performed By: #### A DIFF, CBC, ANEU, GFR, BMP #### [address] [address] Calcium [Mass/Vol] 9.6 mg/dL Normal 8.7-10.4 [facility] MAIN Comment on above: Performed By: #### A DIFF, CBC, ANEU, GFR, BMP #### [address] [address] Chloride [Moles/Vol] 101 mmol/L Normal 98-110 [facility] MAIN Comment on above: Performed By: #### A DIFF, CBC, ANEU, GFR, BMP #### [address] [address] CO2 [Moles/Vol] 27 mmol/L Normal 22-32 [facility] MAIN Comment on above: Performed By: #### A DIFF, CBC, ANEU, GFR, BMP #### [facility] [address] [place], [place] [address] Creatinine [Mass/Vol] 1.01 mg/dL Normal 0.50-1.20 [facility]IN Comment on above: Result Comment: Test ing performed on Jamii analyzer using enzymatic creatinine methodology. Performed By: #### A DIFF, CBC, ANEU, GFR, BMP #### [address] [address] Electrolyte Balance 10.0 mEq/L Normal 4.0-15.0 [facility] MAIN Comment on above: Performed By: #### A DIFF, CBC, ANEU, GFR, BMP #### [address] [address] Globulin 3.4 G/dL Normal 1.5-3.8 [facility] MAIN Comment on above: Performed By: #### A DIFF, CBC, ANEU, GFR, BMP #### [address] [address] Glucose [Mass/Vol] 187 mg/dL High 82-115 [facility] Comment on above: Performed By: #### A DIFF, CBC, ANEU, GFR, BMP #### [address] [address] Potassium [Moles/Vol] 4.6 mmol/L Normal 3.5-5.0 [facility] MAIN Comment on above: Performed By: #### A DIFF, CBC, ANEU, GFR, BMP #### [address] [address] Sodium [Moles/Vol] 138 mmol/L Normal 136-145 [facility] MA[facility] Comment on above: Performed By: #### A DIFF, CBC, ANEU, GFR, BMP #### [address] [address] Total Protein 6.4 G/dL Normal 5.7-8.2 [facility] MAIN Comment on above: Performed By: #### A DIFF, CBC, ANEU, GFR, BMP #### [address] [address] Urea nitrogen [Mass/Vol] 30.0 mg/dL High 8.0-22.0 [facility] MAIN Comment on above: Performed By: #### A DIFF, CBC, ANEU, GFR, BMP #### [facility] [address] [place] [address] LABORATORYOrdered By: Ann Carrillo on 09-03-2024 Glucose [...] above: Interpretive Data: T esting performed on Jamii analyzer using enzymatic creatinine methodology. Electrolyte Balance [...] TSHon 09-03-2024 TSH 3.920 mIU/mL Normal 0.550-4.780 [facility] MAIN Comment on above: Performed By: #### A DIFF, CBC, ANEU, GFR, BMP #### [place] [address] [address] HEAD OR BRAIN W/O CONTRAS Ton [...] 09/02/2024 3:10:44 PM [facility]: [facility] RANDEE Telephone (FAMPWS) ARMANDLINDSAY Veronica ([id number]) 1945 F Date Time Provider Department 08/30/24 KAMERON CARUSO [facility] During your visit today, we recorded the following information about you: Jaiden Paulino RN 08/30/2024 9:11 AM Signed [facility] reports patient was in [facility] with dx: stroke, and transferred to [facility]. Pt will be discharged from [facility] on 09/07/24 to home with [facility] SN PT OT [facility]. Asking if pcp agreeable to follow for [facility]. Please phone Marya with verbal: [phone] Mj Glover APRN.GAUGE INSPECTOR 08/30/2024 9:19 AM Signed Please let know [...] Status:Closed by FOUZIA MILLER on 08/30/24 Normal [facility] .Auto Diffon 08-26-2024 Basophil, Absolute 0.1 10 3/mcL Normal 0.0-0.3 [facility] MAIN Comment on above: Performed By: #### A DIFF, CBC, ANEU, GFR, BMP #### [address] [address] Basophils/100 WBC (Bld) 1.0 % Normal 0.0-2.5 [facility] MAIN Comment on above: Performed By: #### A DIFF, CBC, ANEU, GFR, BMP #### [address] [address] Eosinophil, Absolute 0.3 10 3/mcL Normal 0.0-0.7 [facility] MAIN Comment on above: Performed By: #### A DIFF, CBC, ANEU, GFR, BMP #### [address] [address] Eosinophils/100 WBC (Bld) 4.2 % Normal 0.0-6.0 [facility] MAIN Comment on above: Performed By: #### A DIFF, CBC, ANEU, GFR, BMP #### [address] [address] Lymphocyte, Absolute 2.2 10 3/mcL Normal 0.9-4.3 [facility] MAIN Comment on above: Performed By: #### A DIFF, CBC, ANEU, GFR, BMP #### [address] [address] Lymphocytes/100 WBC (Bld) 26.3 % Normal 20.0-40.0 [facility] MAIN Comment on above: Performed By: #### A DIFF, CBC, ANEU, GFR, BMP #### [address] [address] Monocyte, Absolute 0.9 10 3/mcL Normal 0.1-1.4 [facility] MAIN Comment on above: Performed By: #### A DIFF, CBC, ANEU, GFR, BMP #### [address] [address] Monocytes/100 WBC (Bld) 11.4 % Normal 2.0-13.0 [facility] MAIN Comment on above: Performed By: #### A DIFF, CBC, ANEU, GFR, BMP #### [address] [address] Neutrophils/100 WBC (Bld) 57.1 % Normal 50.0-75.0 [facility] MAIN Comment on above: Performed By: #### A DIFF, CBC, ANEU, GFR, BMP #### [address] [address] .GFRon 08-26-2024 Estimated Glomerular Filtration Rate 59 ml/min/1.73sqm Normal [facility] MAIN Comment on above: Result Comment: Stages [...] A DIFF, CBC, ANEU, GFR, BMP #### [address] [address] .NEUABSon 08-26-2024 Neutrophil, Absolute 4.7 10 3/mcL Normal 2.3-8.1 [facility] MAIN Comment on above: Performed By: #### A DIFF, CBC, ANEU, GFR, BMP #### [place] [id number] BMPon 08-26-2024 BUN/Creatinine Ratio 35.1 ratio High 10.0-22.0 [facility] Comment on above: Performed By: #### A DIFF, CBC, ANEU, GFR, BMP #### [place] [address] Calcium [Mass/Vol] 9.8 mg/dL Normal 8.7-10.4 [facility] Comment on above: Performed By: #### A DIFF, CBC, ANEU, GFR, BMP #### [place] [address] Chloride [Moles/Vol] 98 mmol/L Normal 98-110 [facility] Comment on above: Performed By: #### A DIFF, CBC, ANEU, GFR, BMP #### [place] [address] CO2 [Moles/Vol] 25 mmol/L Normal 22-32 [facility] MAIN Comment on above: Performed By: #### A DIFF, CBC, ANEU, GFR, BMP #### [place] [address] Creatinine [Mass/Vol] 0.97 mg/dL Normal 0.50-1.20 [facility] MAIN Comment on above: Result Comment: Test ing performed on Jamii analyzer using enzymatic creatinine methodology. Performed By: #### A DIFF, CBC, ANEU, GFR, BMP #### [place] [address] Electrolyte Balance 12.0 mEq/L Normal 4.0-15.0 [facility] MAIN Comment on above: Performed By: #### A DIFF, CBC, ANEU, GFR, BMP #### [address] [address] Glucose [Mass/Vol] 160 mg/dL High 82-115 [facility] MAIN Comment on above: Performed By: #### A DIFF, CBC, ANEU, GFR, BMP #### [address] [address] Potassium [Moles/Vol] 4.7 mmol/L Normal 3.5-5.0 [facility] MAIN Comment on above: Result Comment: Spec imen slightly hemolyzed. Performed By: #### A DIFF, CBC, ANEU, GFR, BMP #### [place] [id number] Sodium [Moles/Vol] 135 mmol/L Low 136-145 [facility] Comment on above: Performed By: #### A DIFF, CBC, ANEU, GFR, BMP #### [place] [address] Urea nitrogen [Mass/Vol] 34.0 mg/dL High 8.0-22.0 [facility] MAIN Comment on above: Performed By: #### A DIFF, CBC, ANEU, GFR, BMP #### [address] [address] CBCon 08-26-2024 Erythrocyte distribution width (RBC) [Ratio] 14.0 % Normal 11.5-15.5 [facility] MAIN Comment on above: Performed By: #### A DIFF, CBC, ANEU, GFR, BMP #### [place] [id number] Hematocrit (Bld) [Volume fraction] 41.0 % Normal 34.0-46.0 [facility] MAIN Comment on above: Performed By: #### A DIFF, CBC, ANEU, GFR, BMP #### [place] [id number] Hgb 13.4 G/dL Normal 12.0-16.0 [facility] MAIN Comment on above: Performed By: #### A DIFF, CBC, ANEU, GFR, BMP #### [place] [address] MCH (RBC) [Entitic mass] 30.0 pg Normal 27.0-33.0 [facility] MAIN Comment on above: Performed By: #### A DIFF, CBC, ANEU, GFR, BMP #### [place] [address] MCHC 32.7 G/dL Normal 32.0-36.0 [facility] MAIN Comment on above: Performed By: #### A DIFF, CBC, ANEU, GFR, BMP #### [place] [address] MCV (RBC) [Entitic vol] 91.9 fL Normal 80.0-99.0 [facility] MAIN Comment on above: Performed By: #### A DIFF, CBC, ANEU, GFR, BMP #### [place] [address] Platelet 297 10 3/mcL Normal 150-450 [facility] MAIN Comment on above: Performed By: #### A DIFF, CBC, ANEU, GFR, BMP #### [place] [address] Platelet mean volume (Bld) [Entitic vol] 11.0 fL High 6.6-10.5 [facility] MAIN Comment on above: Performed By: #### A DIFF, CBC, ANEU, GFR, BMP #### [place] [address] RBC 4.46 10 6/mcL Normal 4.10-5.30 [facility] MAIN Comment on above: Performed By: #### A DIFF, CBC, ANEU, GFR, BMP #### [place] [address] WBC 8.3 10 3/mcL Normal 4.5-10.8 [facility] MAIN Comment on above: Performed By: #### A DIFF, CBC, ANEU, GFR, BMP #### [place] [address] LABORATORYOrdered By: SYSTEM SYSTEM on 08-26-2024 Basophils [...] above: Interpretive Data: T esting performed on Standardized Safety CH analyzer using enzymatic creatinine methodology. Electrolyte [...] Sign Date: 08/25/2024 2:27:26 PM Ordering Provider: [facility] MAIN XR HUMERUS MINIMUM 2 VIEWS [...] Sign Date: 08/25/2024 2:26:11 PM Ordering Provider: [facility] MAIN XR SHOULDER MINIMUM 2 VIEWS [...] 08/25/2024 2:26:45 PM Ordering Provider: JACKLYN LINDSEY [facility] MAIN LABORATORYOrdered By: Kala lux on 08-23-2024 Glucose [Mass/Vol] 278 mg/dL [facility] Work Phone: LABORATORYOrdered By: Kala lux on 08-22-2024 Glucose [Mass/Vol] 320 mg/dL [facility] Work Phone: A1Con 08-21-2024 Glucose [Mass/Vol] 194 mg/dL [facility] MAIN Comment on above: Result Comment: Nancy mated Average Glucose calculated by equation ((28.7xA1C)-46.7) Estimated average glucose (eAG) is a calculated value from Hemoglobin A1C and is sales representative uniforms of the average blood glucose level in the last 2-3 month period. Normal range: less than 114 mg/dL Performed By: #### A 1C #### [place] [address] HbA1c (Bld) [Mass fraction] 8.4 % High 4.0-6.0 [facility] MAIN Comment on above: Performed By: #### A 1C #### [place] [id number] LABORATORYOrdered By: SYSTEM SYSTEM on 08-21-2024 Glucose [Mass/Vol] 194 mg/dL Invalid Interpretation Code Auto Chem SS Comment on above: Interpretive Data: E stimated average glucose (eAG) is a calculated value from Hemoglobin A1C and is sales representative uniforms of the average blood glucose level in the last 2-3 month period. Normal range: less than 114 mg/dL HbA1c (Bld) [Mass fraction] 8.4 % High 4.0 - 6.0 % Auto Chem SS .Auto Diffon 08-20-2024 Basophil, Absolute 0.1 10 3/mcL Normal 0.0-0.3 [facility] MAIN Comment on above: Performed By: #### B MP, ADIFF, CBC, GFR, ANEU #### [address] [address] Basophils/100 WBC (Bld) 1.1 % Normal 0.0-2.5 [facility] MAIN Comment on above: Performed By: #### B MP, ADIFF, CBC, GFR, ANEU #### [address] [address] Eosinophil, Absolute 0.3 10 3/mcL Normal 0.0-0.7 [facility] MAIN Comment on above: Performed By: #### B MP, ADIFF, CBC, GFR, ANEU #### [address] [address] Eosinophils/100 WBC (Bld) 3.6 % Normal 0.0-6.0 [facility] MAIN Comment on above: Performed By: #### B MP, ADIFF, CBC, GFR, ANEU #### [address] [address] Lymphocyte, Absolute 1.7 10 3/mcL Normal 0.9-4.3 [facility] MAIN Comment on above: Performed By: #### B MP, ADIFF, CBC, GFR, ANEU #### [address] [address] Lymphocytes/100 WBC (Bld) 20.8 % Normal 20.0-40.0 [facility] MAIN Comment on above: Performed By: #### B MP, ADIFF, CBC, GFR, ANEU #### [address] [address] Monocyte, Absolute 0.9 10 3/mcL Normal 0.1-1.4 [facility] MAIN Comment on above: Performed By: #### B MP, ADIFF, CBC, GFR, ANEU #### [address] [address] Monocytes/100 WBC (Bld) 11.4 % Normal 2.0-13.0 [facility] MAIN Comment on above: Performed By: #### B MP, ADIFF, CBC, GFR, ANEU #### [address] [address] Neutrophils/100 WBC (Bld) 63.1 % Normal 50.0-75.0 [facility] MAIN Comment on above: Performed By: #### B MP, ADIFF, CBC, GFR, ANEU #### [address] [address] .GFRon 08-20-2024 Estimated Glomerular Filtration Rate 55 ml/min/1.73sqm Normal [facility] MAIN Comment on above: Result Comment: Stages [...] A DIFF, CBC, ANEU, GFR, BMP #### [address] [address] .NEUABSon 08-20-2024 Neutrophil, Absolute 5.1 10 3/mcL Normal 2.3-8.1 [facility] MAIN Comment on above: Performed By: #### B MP, ADIFF, CBC, GFR, ANEU #### [address] [address] BMPon 08-20-2024 BUN/Creatinine Ratio 29.8 ratio High 10.0-22.0 [facility] MAIN Comment on above: Performed By: #### B MP, ADIFF, CBC, GFR, ANEU #### [address] [address] Calcium [Mass/Vol] 9.8 mg/dL Normal 8.7-10.4 [facility] MAIN Comment on above: Performed By: #### B MP, ADIFF, CBC, GFR, ANEU #### [address] [address] Chloride [Moles/Vol] 95 mmol/L Low 98-110 [facility] MAIN Comment on above: Performed By: #### B MP, ADIFF, CBC, GFR, ANEU #### [address] [address] CO2 [Moles/Vol] 34 mmol/L High 22-32 [facility] MAIN Comment on above: Performed By: #### B MP, ADIFF, CBC, GFR, ANEU #### [address] [address] Creatinine [Mass/Vol] 1.04 mg/dL Normal 0.50-1.20 [facility] MAIN Comment on above: Result Comment: Test ing performed on Jamii analyzer using enzymatic creatinine methodology. Performed By: #### B MP, ADIFF, CBC, GFR, ANEU #### [address] [address] Electrolyte Balance 5.0 mEq/L Normal 4.0-15.0 [facility] MAIN Comment on above: Performed By: #### B MP, ADIFF, CBC, GFR, ANEU #### [address] [address] Glucose [Mass/Vol] 244 mg/dL High 82-115 [facility] MAIN Comment on above: Performed By: #### B MP, ADIFF, CBC, GFR, ANEU #### [address] [address] Potassium [Moles/Vol] 4.8 mmol/L Normal 3.5-5.0 [facility] MAIN Comment on above: Result Comment: Spec imen slightly hemolyzed. Performed By: #### B MP, ADIFF, CBC, GFR, ANEU #### [address] [address] Sodium [Moles/Vol] 134 mmol/L Low 136-145 [facility] MAIN Comment on above: Performed By: #### B MP, ADIFF, CBC, GFR, ANEU #### [address] [address] Urea nitrogen [Mass/Vol] 31.0 mg/dL High 8.0-22.0 [facility] MAIN Comment on above: Performed By: #### B MP, ADIFF, CBC, GFR, ANEU #### [place] [id number] CBCon 08-20-2024 Erythrocyte distribution width (RBC) [Ratio] 14.0 % Normal 11.5-15.5 [facility] MAIN Comment on above: Performed By: #### B MP, ADIFF, CBC, GFR, ANEU #### [place] [address] Hematocrit (Bld) [Volume fraction] 41.9 % Normal 34.0-46.0 [facility] MAIN Comment on above: Performed By: #### B MP, ADIFF, CBC, GFR, ANEU #### [place] [address] Hgb 13.6 G/dL Normal 12.0-16.0 [facility] MAIN Comment on above: Performed By: #### B MP, ADIFF, CBC, GFR, ANEU #### [place] [address] MCH (RBC) [Entitic mass] 29.7 pg Normal 27.0-33.0 [facility] MAIN Comment on above: Performed By: #### B MP, ADIFF, CBC, GFR, ANEU #### [place] [address] MCHC 32.4 G/dL Normal 32.0-36.0 [facility] MAIN Comment on above: Performed By: #### B MP, ADIFF, CBC, GFR, ANEU #### [place] [address] MCV (RBC) [Entitic vol] 91.5 fL Normal 80.0-99.0 [facility] MAIN Comment on above: Performed By: #### B MP, ADIFF, CBC, GFR, ANEU #### [place] [address] Platelet 301 10 3/mcL Normal 150-450 [facility] MAIN Comment on above: Performed By: #### B MP, ADIFF, CBC, GFR, ANEU #### [facility] [address] [place], [place] [address] Platelet mean volume (Bld) [Entitic vol] 11.0 fL High 6.6-10.5 [facility] MAIN Comment on above: Performed By: #### B MP, ADIFF, CBC, GFR, ANEU #### [facility] [address] [place] [address] RBC 4.58 10 6/mcL Normal 4.10-5.30 [facility] MAIN Comment on above: Performed By: #### B MP, ADIFF, CBC, GFR, ANEU #### [facility] [address] [place] [address] WBC 8.1 10 3/mcL Normal 4.5-10.8 [facility] MAIN Comment on above: Performed By: #### B MP, ADIFF, CBC, GFR, ANEU #### [address] [address] LABORATORYOrdered By: SYSTEM SYSTEM on 08-20-2024 Basophils [...] above: Interpretive Data: T esting performed on Jamii analyzer using enzymatic creatinine methodology. Electrolyte Balance [...] 08/18/2024 3:14:15 PM Ordering Provider: NANDO Anderson [facility] MAIN .Auto Diffon 08-16-2024 Basophil, Absolute 0.1 10 3/mcL Normal 0.0-0.3 [facility] MAIN Comment on above: Performed By: #### A DIFF, CBC, ANEU, GFR, BMP #### [facility] [address] [place] [address] Basophils/100 WBC (Bld) 0.7 % Normal 0.0-2.5 [facility] MAIN Comment on above: Performed By: #### A DIFF, CBC, ANEU, GFR, BMP #### [address] [address] Eosinophil, Absolute 0.3 10 3/mcL Normal 0.0-0.7 [facility] MAIN Comment on above: Performed By: #### A DIFF, CBC, ANEU, GFR, BMP #### [address] [address] Eosinophils/100 WBC (Bld) 2.1 % Normal 0.0-6.0 [facility] MAIN Comment on above: Performed By: #### A DIFF, CBC, ANEU, GFR, BMP #### [address] [address] Lymphocyte, Absolute 1.9 10 3/mcL Normal 0.9-4.3 [facility] MAIN Comment on above: Performed By: #### A DIFF, CBC, ANEU, GFR, BMP #### [address] [address] Lymphocytes/100 WBC (Bld) 14.8 % Low 20.0-40.0 [facility] MAIN Comment on above: Performed By: #### A DIFF, CBC, ANEU, GFR, BMP #### [address] [address] Monocyte, Absolute 1.2 10 3/mcL Normal 0.1-1.4 [facility] MAIN Comment on above: Performed By: #### A DIFF, CBC, ANEU, GFR, BMP #### [address] [address] Monocytes/100 WBC (Bld) 9.8 % Normal 2.0-13.0 [facility] MAIN Comment on above: Performed By: #### A DIFF, CBC, ANEU, GFR, BMP #### [address] [address] Neutrophils/100 WBC (Bld) 72.6 % Normal 50.0-75.0 [facility] MAIN Comment on above: Performed By: #### A DIFF, CBC, ANEU, GFR, BMP #### [address] [address] .GFRon 04-04-2025 Estimated Glomerular Filtration Rate 58 ml/min/1.73sqm Normal [facility] MAIN Comment on above: Result Comment: Stages [...] A DIFF, CBC, ANEU, GFR, BMP #### [place] [address] .NEUABSon 08-16-2024 Neutrophil, Absolute 9.2 10 3/mcL High 2.3-8.1 [facility] MAIN Comment on above: Performed By: #### A DIFF, CBC, ANEU, GFR, BMP #### [place] [address] BMPon 08-16-2024 BUN/Creatinine Ratio 34.3 ratio High 10.0-22.0 [facility] MAIN Comment on above: Performed By: #### A DIFF, CBC, ANEU, GFR, BMP #### [place] [id number] Calcium [Mass/Vol] 9.0 mg/dL Normal 8.7-10.4 [facility] MAIN Comment on above: Performed By: #### A DIFF, CBC, ANEU, GFR, BMP #### [place] [id number] Chloride [Moles/Vol] 100 mmol/L Normal 98-110 [facility] MAIN Comment on above: Performed By: #### A DIFF, CBC, ANEU, GFR, BMP #### [place] [id number] CO2 [Moles/Vol] 30 mmol/L Normal 22-32 [facility] MAIN Comment on above: Performed By: #### A DIFF, CBC, ANEU, GFR, BMP #### [place] [id number] Creatinine [Mass/Vol] 0.99 mg/dL Normal 0.50-1.20 [facility] MAIN Comment on above: Result Comment: Test ing performed on Jamii analyzer using enzymatic creatinine methodology. Performed By: #### A DIFF, CBC, ANEU, GFR, BMP #### [place] [id number] Electrolyte Balance 5.0 mEq/L Normal 4.0-15.0 [facility] MAIN Comment on above: Performed By: #### A DIFF, CBC, ANEU, GFR, BMP #### [address] [address] Glucose [Mass/Vol] 259 mg/dL High 82-115 [facility] MAIN Comment on above: Performed By: #### A DIFF, CBC, ANEU, GFR, BMP #### [place] [address] Potassium [Moles/Vol] 5.0 mmol/L Normal 3.5-5.0 [facility] MAIN Comment on above: Performed By: #### A DIFF, CBC, ANEU, GFR, BMP #### [place] [address] Sodium [Moles/Vol] 135 mmol/L Low 136-145 [facility] MAIN Comment on above: Performed By: #### A DIFF, CBC, ANEU, GFR, BMP #### [address] [address] Urea nitrogen [Mass/Vol] 34.0 mg/dL High 8.0-22.0 [facility] MAIN Comment on above: Performed By: #### A DIFF, CBC, ANEU, GFR, BMP #### [address] [address] CBCon 08-16-2024 Erythrocyte distribution width (RBC) [Ratio] 13.7 % Normal 11.5-15.5 [facility] MAIN Comment on above: Performed By: #### A DIFF, CBC, ANEU, GFR, BMP #### [address] [address] Hematocrit (Bld) [Volume fraction] 43.3 % Normal 34.0-46.0 [facility] MAIN Comment on above: Performed By: #### A DIFF, CBC, ANEU, GFR, BMP #### [address] [address] Hgb 13.9 G/dL Normal 12.0-16.0 [facility] MAIN Comment on above: Performed By: #### A DIFF, CBC, ANEU, GFR, BMP #### [address] [address] MCH (RBC) [Entitic mass] 30.0 pg Normal 27.0-33.0 [facility] MAIN Comment on above: Performed By: #### A DIFF, CBC, ANEU, GFR, BMP #### [place] [id number] MCHC 32.1 G/dL Normal 32.0-36.0 [facility] MAIN Comment on above: Performed By: #### A DIFF, CBC, ANEU, GFR, BMP #### [address] [address] MCV (RBC) [Entitic vol] 93.6 fL Normal 80.0-99.0 [facility] MAIN Comment on above: Performed By: #### A DIFF, CBC, ANEU, GFR, BMP #### [address] [address] Platelet 230 10 3/mcL Normal 150-450 [facility] MAIN Comment on above: Performed By: #### A DIFF, CBC, ANEU, GFR, BMP #### [place] [id number] Platelet mean volume (Bld) [Entitic vol] 10.7 fL High 6.6-10.5 [facility] MAIN Comment on above: Performed By: #### A DIFF, CBC, ANEU, GFR, BMP #### [address] [address] RBC 4.63 10 6/mcL Normal 4.10-5.30 [facility] MAIN Comment on above: Performed By: #### A DIFF, CBC, ANEU, GFR, BMP #### [facility] [address] [place] [id number] WBC 12.7 10 3/mcL High 4.5-10.8 [facility] Comment on above: Performed By: #### A DIFF, CBC, ANEU, GFR, BMP #### [facility] [address] [place] [id number] LABORATORYOrdered By: Marily Panda on 08-16-2024 Blood Glucose Interventions Administered agent to decrease blood sugar (08/16/24 12:23 PM) [facility] [employer] Work Phone: Blood Glucose Interventions Retest (08/16/24 10:15 AM) [facility] Work Phone: Bacteria identified Cx Nom ( Bld)on 08-15-2024 Bacteria identified Cx Nom (Unsp spec) NO GROWTH DAY 5 OF 5 [facility] [facility] CARDIAC RHYTHMon 08-15-2024 [facility] CBC,PLATELETSon 08-15-2024 Erythrocyte distribution width (RBC) [Ratio] 13.4 % 10.8 - 14.9 % [facility] Hematocrit (Bld) [Volume fraction] 43.8 % 34.9 - 44.3 % [facility] Hemoglobin (Bld) [Mass/Vol] 13.5 g/dL 11.4 - 15.2 g/dL [facility] Interpretation and review of laboratory results Abnormal [facility] MCH (RBC) [Entitic mass] 28.9 pg 25.9 - 33.9 pg [facility] MCHC (RBC) [Mass/Vol] 30.8 g/dL Low 31.4 - 35.9 g/dL [facility] MCV (RBC) [Entitic vol] 93.8 fL 79.6 - 97.7 fL [facility] Platelet mean volume (Bld) [Entitic vol] 12 fL 8.5 - 12.2 fL [facility] Platelets (Bld) [#/Vol] 252 10*3/uL 150 - 393 K/uL [facility] RBC (Bld) [#/Vol] 4.67 10*6/uL [facility] WBC (Bld) [#/Vol] 11.94 10*3/uL High 3.99 - 11.19 K/uL [facility] Hematocrit (Bld) [Volume fraction] 43.8 % Normal 34.9-44.3 [facility] Comment on above: Performed By: #### X M #### [facility] (DEFAULT) [address] [place] [address] Hemoglobin (Bld) [Mass/Vol] 13.5 g/dL Normal 11.4-15.2 [facility] Comment on above: Performed By: #### X M #### [facility] (DEFAULT) [address] [address] MCV (RBC) [Entitic vol] 93.8 fL Normal 79.6-97.7 [facility] Comment on above: Performed By: #### X M #### [facility] (DEFAULT) [address] [address] Mean Cell Hgb 28.9 pg Normal 25.9-33.9 [facility] Comment on above: Performed By: #### X M #### [facility] (DEFAULT) [address] [address] Mean Cell Hgb Conc 30.8 g/dL Low 31.4-35.9 [facility] Comment on above: Performed By: #### X M #### [facility] (DEFAULT) [address] [place] [address] Platelet mean volume (Bld) [Entitic vol] 12.0 fL Normal 8.5-12.2 [facility] Comment on above: Performed By: #### X M #### [facility] (DEFAULT) [address] [place] [address] Platelets (Bld) [#/Vol] 252 10*3/uL Normal 150-393 [facility] Comment on above: Performed By: #### X M #### [facility] (DEFAULT) [address] [place] [address] RBC (Bld) [#/Vol] 4.67 10*6/uL Normal 3.91-5.04 [facility] Comment on above: Performed By: #### X M #### [facility] (DEFAULT) [address] [place] [address] RBC Distribution 13.4 % Normal 10.8-14.9 [facility] Comment on above: Performed By: #### X M #### [facility] (DEFAULT) [address] [place] [address]227 WBC (Bld) [#/Vol] 11.94 10*3/uL High 3.99-11.19 [facility] Comment on above: Performed By: #### X M #### [facility] (DEFAULT) [address] [place] [address] CHEM 7 (LYTES,BUN,CREA,GLUC) on 08-15-2024 Anion gap [Moles/Vol] 16 mmol/L 7 - 17 mmol/L [facility] Chloride [Moles/Vol] 99 mmol/L 98 - 10 8 mmol/L [facility] CO2 [Moles/Vol] 25 mmol/L 21 - 31 mmol/L [facility] Creatinine [Mass/Vol] 1.27 mg/dL High 0.50 - 1.20 mg/dL [facility] eGFR, CKD-EPI, Female 43 Low - PINF [facility] Glucose [Mass/Vol] 214 mg/dL High 70 - 179 mg/dL [facility] Interpretation and review of laboratory results Abnormal [facility] Osmolality Calc [Osmolality] 306 High [facility] Potassium [Moles/Vol] 4.8 mmol/L 3.5 - 5.0 mmol/L [facility] Sodium [Moles/Vol] 135 mmol/L 135 - 145 mmol/L [facility] Urea nitrogen [Mass/Vol] 51 mg/dL High 7 - 25 mg/dL [facility] Urea nitrogen/Creatinine [Mass ratio] 40 mg/mg [facility] Anion gap [Moles/Vol] 16 mmol/L Normal 7-17 [facility] Comment on above: Performed By: #### H EMO #### [facility] (DEFAULT) [address] [place] [address] Chloride [Moles/Vol] 99 mmol/L Normal 98-108 [facility] Comment on above: Performed By: #### H EMO #### [facility] (DEFAULT) [address] [place] [address] 64819 CO2 [Moles/Vol] 25 mmol/L Normal 21-31 [facility] Comment on above: Performed By: #### H EMO #### [facility] (DEFAULT) [address] [place] [address] 87118 Creatinine [Mass/Vol] 1.27 mg/dL High 0.50-1.20 [facility] Comment on above: Performed By: #### H [facility] #### [facility] (DEFAULT) [address] [place] [address] 63328 GFR/1.73 sq M.predicted among non-blacks MDRD (S/P/Bld) [Vol rate/Area] 43 mL/min/{1.73_m2} Low >=60 [facility] Comment on above: Result Comment: Repo rted eGFR is based on the CKD-EPI 2020 equation using creatinine, age, and sex. Performed By: #### H EMO #### [facility] (DEFAULT) [address] [place] [address] 34869 Glucose [Mass/Vol] 214 mg/dL High Nonfastin -179 mg/dL; Fastin-99 [facility] Comment on above: Performed By: #### H EMOGC #### [facility] (DEFAULT) [address] [place] [address]77 Osmolality [Osmolality] 306 mosm/kg High 278-305 [facility] Comment on above: Performed By: #### H EMOGC #### [facility] (DEFAULT) [address] [place] [address] 85204 Potassium [Moles/Vol] 4.8 mmol/L Normal 3.5-5.0 [facility] Comment on above: Performed By: #### H EMOGC #### [facility] (DEFAULT) [address] [place] [address] 35616 Sodium [Moles/Vol] 135 mmol/L Normal 135-145 [facility] Comment on above: Performed By: #### H EMOGC #### [facility] (DEFAULT) [address] [place] [address] 66768 Urea nitrogen [Mass/Vol] 51 mg/dL High 7-25 [facility] Comment on above: Performed By: #### H EMOGC #### [facility] (DEFAULT) [address] [place] [address] 36548 Urea nitrogen/Creatinine [Mass ratio] 40 mg/mg Normal [facility] Comment on above: Performed By: #### H EMOGC #### [facility] (DEFAULT) [address] [place] [address] 71695 GLUCOSE POCon 08-15-2024 Glucose [Mass/Vol] 190 mg/dL High 70 - 179 mg/dL [facility] Interpretation and review of laboratory results Abnormal [facility] POC Sample [facility] Glucose [Mass/Vol] 146 mg/dL 70 - 179 mg/dL [facility] POC Sample Type [facility] Glucose [Mass/Vol] 215 mg/dL High 70 - 179 mg/dL [facility] Interpretation and review of laboratory results Abnormal [facility] POC Sample Type CAPBL [facility] MAGNESIUMon 08-15-2024 Interpretation and review of laboratory results Normal [facility] Magnesium [Mass/Vol] 1.6 mg/dL 1.6 - 2 .6 mg/dL [facility] Magnesium [Mass/Vol] 1.6 mg/dL Normal 1.6-2.6 [facility] Comment on above: Performed By: #### H [facility] #### [facility] (DEFAULT) [address] [place] [address] No Panel Informationon 08-15 [facility] CBC,PLATELETSon 08-14-2024 Erythrocyte distribution width (RBC) [Ratio] 13.4 % 10.8 - 14.9 % [facility] Hematocrit (Bld) [Volume fraction] 47.9 % High 34.9 - 44.3 % [facility] Hemoglobin (Bld) [Mass/Vol] 14.3 g/dL 11.4 - 15.2 g/dL [facility] Interpretation and review of laboratory results Abnormal [facility] MCH (RBC) [Entitic mass] 29.3 pg 25.9 - 33.9 pg [facility] MCHC (RBC) [Mass/Vol] 29.9 g/dL Low 31.4 - 35.9 g/dL [facility] MCV (RBC) [Entitic vol] 98.2 fL High 79.6 - 97.7 fL [facility] Platelet mean volume (Bld) [Entitic vol] 11.3 fL 8.5 - 12.2 fL [facility] Platelets (Bld) [#/Vol] 229 10*3/uL 150 - 393 K/uL [facility] RBC (Bld) [#/Vol] 4.88 10*6/uL [facility] WBC (Bld) [#/Vol] 12.14 10*3/uL High 3.99 - 11.19 K/uL [facility] Hematocrit (Bld) [Volume fraction] 47.9 % High 34.9-44.3 [facility] Comment on above: Performed By: #### X M #### [facility] (DEFAULT) [address] [place] [address] 11923 Hemoglobin (Bld) [Mass/Vol] 14.3 g/dL Normal 11.4-15.2 [facility] Comment on above: Performed By: #### X M #### [facility] (DEFAULT) [address] [place] [address]129 MCV (RBC) [Entitic vol] 98.2 fL High 79.6-97.7 [facility] Comment on above: Performed By: #### X M #### [facility] (DEFAULT) [address] [place] [address] 03018 Mean Cell Hgb 29.3 pg Normal 25.9-33.9 [facility] Comment on above: Performed By: #### X M #### [facility] (DEFAULT) [address] [place] [address] 86579 Mean Cell Hgb Conc 29.9 g/dL Low 31.4-35.9 [facility] Comment on above: Performed By: #### X M #### [facility] (DEFAULT) [address] [place] [address] 86516 Platelet mean volume (Bld) [Entitic vol] 11.3 fL Normal 8.5-12.2 [facility] Comment on above: Performed By: #### X M #### [facility] (DEFAULT) [address] [place] [address] 04910 Platelets (Bld) [#/Vol] 229 10*3/uL Normal 150-393 [facility] Comment on above: Performed By: #### X M #### [facility] (DEFAULT) [address] [place] [address] RBC (Bld) [#/Vol] 4.88 10*6/uL Normal 3.91-5.04 [facility] Comment on above: Performed By: #### X M #### [facility] (DEFAULT) [address] [place] [address] 64542 RBC Distribution 13.4 % Normal 10.8-14.9 [facility] Comment on above: Performed By: #### X M #### [facility] (DEFAULT) [address] [place] [address] 15957 WBC (Bld) [#/Vol] 12.14 10*3/uL High 3.99-11.19 [facility] Comment on above: Performed By: #### X M #### [facility] (DEFAULT) [address] [place] [address] 70032 CHEM 7 (LYTES,BUN,CREA,GLUC) on 08-14-2024 Anion gap [Moles/Vol] 16 mmol/L 7 - 17 mmol/L [facility] Chloride [Moles/Vol] 101 mmol/L 98 - 10 8 mmol/L [facility] CO2 [Moles/Vol] 23 mmol/L 21 - 31 mmol/L [facility] Creatinine [Mass/Vol] 1.15 mg/dL 0.50 - 1.20 mg/dL [facility] eGFR, CKD-EPI, Female 48 Low - PINF [facility] Glucose [Mass/Vol] 208 mg/dL High 70 - 179 mg/dL [facility] Interpretation and review of laboratory results Abnormal [facility] Osmolality Calc [Osmolality] 304 [facility] Potassium [Moles/Vol] 4.7 mmol/L 3.5 - 5.0 mmol/L [facility] Sodium [Moles/Vol] 135 mmol/L 135 - 145 mmol/L [facility] Urea nitrogen [Mass/Vol] 47 mg/dL High 7 - 25 mg/dL [facility] Urea nitrogen/Creatinine [Mass ratio] 41 mg/mg [facility] Anion gap [Moles/Vol] 16 mmol/L Normal 7-17 [facility] Comment on above: Performed By: #### B LDCULT #### [facility] (DEFAULT) [address] [place] [address] Chloride [Moles/Vol] 101 mmol/L Normal 98-108 [facility] Comment on above: Performed By: #### B LDCULT #### [facility] (DEFAULT) [address] [place] [address] 67944 CO2 [Moles/Vol] 23 mmol/L Normal 21-31 [facility] Comment on above: Performed By: #### B LDCULT #### [facility] (DEFAULT) [address] [place] [address] 80539 Creatinine [Mass/Vol] 1.15 mg/dL Normal 0.50-1.20 [facility] Comment on above: Performed By: #### B LDCULT #### [facility] (DEFAULT) [address] [address] GFR/1.73 sq M.predicted among non-blacks MDRD (S/P/Bld) [Vol rate/Area] 48 mL/min/{1.73_m2} Low >=60 [facility] Comment on above: Result Comment: Repo rted eGFR is based on the CKD-EPI 2020 equation using creatinine, age, and sex. Performed By: #### B LDCULT #### [facility] (DEFAULT) [address] [address] Glucose [Mass/Vol] 208 mg/dL High Nonfastin -179 mg/dL; Fastin-99 [facility] Comment on above: Performed By: #### B LDCULT #### [facility] (DEFAULT) [address] [place] [address] 66403 Osmolality [Osmolality] 304 mosm/kg Normal 278-305 [facility] Comment on above: Performed By: #### B LDCULT #### [facility] (DEFAULT) [address] [address] Potassium [Moles/Vol] 4.7 mmol/L Normal 3.5-5.0 [facility] Comment on above: Performed By: #### B LDCULT #### [facility] (DEFAULT) [address] [place] [address], [place] [address] Sodium [Moles/Vol] 135 mmol/L Normal 135-145 [facility] Comment on above: Performed By: #### B LDCULT #### [facility] (DEFAULT) [address] [place] [address] Urea nitrogen [Mass/Vol] 47 mg/dL High 7-25 [facility] Comment on above: Performed By: #### B LDCULT #### [facility] (DEFAULT) [address] [place] [address] Urea nitrogen/Creatinine [Mass ratio] 41 mg/mg Normal [facility] Comment on above: Performed By: #### B LDCULT #### [facility] (DEFAULT) [address] [place] [address] 79691 GLUCOSE POCon 08-14-2024 Glucose [Mass/Vol] 204 mg/dL High 70 - 179 mg/dL [facility] Interpretation and review of laboratory results Abnormal [facility] POC Sample Type CAPBL [facility] Glucose [Mass/Vol] 264 mg/dL High 70 - 179 mg/dL [facility] Interpretation and review of laboratory results Abnormal [facility] POC Sample Type CAPBL [facility] Glucose [Mass/Vol] 189 mg/dL High 70 - 179 mg/dL [facility] Interpretation and review of laboratory results Abnormal [facility] POC Sample Type CAPBL [facility] MAGNESIUMon 08-14-2024 Interpretation and review of laboratory results Normal [facility] Magnesium [Mass/Vol] 1.6 mg/dL 1.6 - 2 .6 mg/dL [facility] Magnesium [Mass/Vol] 1.6 mg/dL Normal 1.6-2.6 [facility] Comment on above: Performed By: #### B LDCULT #### [facility] (DEFAULT) [address] [address] No Panel Informationon 08-14 [facility] CBC,PLATELETSon 08-13-2024 Erythrocyte distribution width (RBC) [Ratio] 13.4 % 10.8 - 14.9 % [facility] Hematocrit (Bld) [Volume fraction] 45.7 % High 34.9 - 44.3 % [facility] Hemoglobin (Bld) [Mass/Vol] 14.3 g/dL 11.4 - 15.2 g/dL [facility] Interpretation and review of laboratory results Abnormal [facility] MCH (RBC) [Entitic mass] 29.5 pg 25.9 - 33.9 pg [facility] MCHC (RBC) [Mass/Vol] 31.3 g/dL Low 31.4 - 35.9 g/dL [facility] MCV (RBC) [Entitic vol] 94.2 fL 79.6 - 97.7 fL [facility] Platelet mean volume (Bld) [Entitic vol] 11.7 fL 8.5 - 12.2 fL [facility] Platelets (Bld) [#/Vol] 245 10*3/uL 150 - 393 K/uL [facility] RBC (Bld) [#/Vol] 4.85 10*6/uL [facility] WBC (Bld) [#/Vol] 12.02 10*3/uL High 3.99 - 11.19 K/uL [facility] Hematocrit (Bld) [Volume fraction] 45.7 % High 34.9-44.3 [facility] Comment on above: Performed By: #### H [facility] #### [facility] (DEFAULT) [address] [address] Hemoglobin (Bld) [Mass/Vol] 14.3 g/dL Normal 11.4-15.2 [facility] Comment on above: Performed By: #### H EMO #### [facility] (DEFAULT) [address] [place] [address] 06076 MCV (RBC) [Entitic vol] 94.2 fL Normal 79.6-97.7 [facility] Comment on above: Performed By: #### H EMOGC #### [facility] (DEFAULT) [address] [place] [address] 68159 Mean Cell Hgb 29.5 pg Normal 25.9-33.9 [facility] Comment on above: Performed By: #### H EMOGC #### [facility] (DEFAULT) [address] [place] [address] 69045 Mean Cell Hgb Conc 31.3 g/dL Low 31.4-35.9 [facility] Comment on above: Performed By: #### H EMOGC #### [facility] (DEFAULT) [address] [place] [address] 56695 Platelet mean volume (Bld) [Entitic vol] 11.7 fL Normal 8.5-12.2 [facility] Comment on above: Performed By: #### H EMOGC #### [facility] (DEFAULT) [address] [place] [address] 18639 Platelets (Bld) [#/Vol] 245 10*3/uL Normal 150-393 [facility] Comment on above: Performed By: #### H EMOGC #### [facility] (DEFAULT) [address] [place] [address] 79794 RBC (Bld) [#/Vol] 4.85 10*6/uL Normal 3.91-5.04 [facility] Comment on above: Performed By: #### H EMOGC #### [facility] (DEFAULT) [address] [place] [address] 14759 RBC Distribution 13.4 % Normal 10.8-14.9 [facility] Comment on above: Performed By: #### H EMOGC #### [facility] (DEFAULT) [address] [place] [address] 36542 WBC (Bld) [#/Vol] 12.02 10*3/uL High 3.99-11.19 [facility] Comment on above: Performed By: #### H [facility] #### [facility] (DEFAULT) [address] [place] [address] CHEM 7 (LYTES,BUN,CREA,GLUC) on 08-13-2024 Anion gap [Moles/Vol] 15 mmol/L 7 - 17 mmol/L [facility] Chloride [Moles/Vol] 104 mmol/L 98 - 10 8 mmol/L [facility] CO2 [Moles/Vol] 23 mmol/L 21 - 31 mmol/L [facility] Creatinine [Mass/Vol] 1.18 mg/dL 0.50 - 1.20 mg/dL [facility] eGFR, CKD-EPI, Female 47 Low - PINF [facility] Glucose [Mass/Vol] 225 mg/dL High 70 - 179 mg/dL [facility] Interpretation and review of laboratory results Abnormal [facility] Osmolality Calc [Osmolality] 311 High [facility] Potassium [Moles/Vol] 4.6 mmol/L 3.5 - 5.0 mmol/L [facility] Sodium [Moles/Vol] 137 mmol/L 135 - 145 mmol/L [facility] Urea nitrogen [Mass/Vol] 55 mg/dL High 7 - 25 mg/dL [facility] Urea nitrogen/Creatinine [Mass ratio] 47 mg/mg [facility] Anion gap [Moles/Vol] 15 mmol/L Normal 7-17 [facility] Comment on above: Performed By: #### H [facility] #### [facility] (DEFAULT) [address] [place] [address] Chloride [Moles/Vol] 104 mmol/L Normal 98-108 [facility] Comment on above: Performed By: #### H [facility] #### [facility] (DEFAULT) [address] [place] [address] CO2 [Moles/Vol] 23 mmol/L Normal 21-31 [facility] Comment on above: Performed By: #### H EMOGC #### [facility] (DEFAULT) [address] [place] [address] 95707 Creatinine [Mass/Vol] 1.18 mg/dL Normal 0.50-1.20 [facility] Comment on above: Performed By: #### H EMOGC #### [facility] (DEFAULT) [address] [place] [address] 70824 GFR/1.73 sq M.predicted among non-blacks MDRD (S/P/Bld) [Vol rate/Area] 47 mL/min/{1.73_m2} Low >=60 [facility] Comment on above: Result Comment: Repo rted eGFR is based on the CKD-EPI 2020 equation using creatinine, age, and sex. Performed By: #### H EMOGC #### [facility] (DEFAULT) [address] [place] [address] 697[address] Glucose [Mass/Vol] 225 mg/dL High Nonfastin -179 mg/dL; Fastin-99 [facility] Comment on above: Performed By: #### H EMOGC #### [facility] (DEFAULT) [address] [place] [address] 54947 Osmolality [Osmolality] 311 mosm/kg High 278-305 [facility] Comment on above: Performed By: #### H EMOGC #### [facility] (DEFAULT) [address] [place] [address] 36570 Potassium [Moles/Vol] 4.6 mmol/L Normal 3.5-5.0 [facility] Comment on above: Performed By: #### H EMOGC #### [facility] (DEFAULT) [address] [place] [address] 79512 Sodium [Moles/Vol] 137 mmol/L Normal 135-145 [facility] Comment on above: Performed By: #### H EMOGC #### [facility] (DEFAULT) [address] [place] [address] 41192 Urea nitrogen [Mass/Vol] 55 mg/dL High 7-25 [facility] Comment on above: Performed By: #### H [facility] #### [facility] (DEFAULT) [address] [place] [address] Urea nitrogen/Creatinine [Mass ratio] 47 mg/mg Normal [facility] Comment on above: Performed By: #### H [facility] #### [facility] (DEFAULT) [address] [place] [address] GLUCOSE POCon 08-13-2024 Glucose [Mass/Vol] 195 mg/dL High 70 - 179 mg/dL [facility] Interpretation and review of laboratory results Abnormal [facility] POC Sample Type CAPBL [facility] Glucose [Mass/Vol] 198 mg/dL High 70 - 179 mg/dL [facility] Interpretation and review of laboratory results Abnormal [facility] POC Sample Type CAPBL [facility] Glucose [Mass/Vol] 158 mg/dL 70 - 179 mg/dL [facility] POC Sample Type CAPBL [facility] Glucose [Mass/Vol] 211 mg/dL High 70 - 179 mg/dL [facility] Interpretation and review of laboratory results Abnormal [facility] POC Sample Type CAPBL [facility] Glucose [Mass/Vol] 240 mg/dL High 70 - 179 mg/dL [facility] Interpretation and review of laboratory results Abnormal [facility] POC Sample Type CAPBL [facility] MAGNESIUMon 08-13-2024 Interpretation and review of laboratory results Normal [facility] Magnesium [Mass/Vol] 1.8 mg/dL 1.6 - 2 .6 mg/dL [facility] Magnesium [Mass/Vol] 1.8 mg/dL Normal 1.6-2.6 [facility] Comment on above: Performed By: #### H [facility] #### [facility] (DEFAULT) [address] [place] [address] No Panel Informationon 08-13 [facility] CBC,PLATELETSon 08-12-2024 Erythrocyte distribution width (RBC) [Ratio] 13.6 % 10.8 - 14.9 % [facility] Hematocrit (Bld) [Volume fraction] 45.1 % High 34.9 - 44.3 % [facility] Hemoglobin (Bld) [Mass/Vol] 14.3 g/dL 11.4 - 15.2 g/dL [facility] Interpretation and review of laboratory results Abnormal [facility] MCH (RBC) [Entitic mass] 29.7 pg 25.9 - 33.9 pg [facility] MCHC (RBC) [Mass/Vol] 31.7 g/dL 31.4 - 35.9 g/dL [facility] MCV (RBC) [Entitic vol] 93.6 fL 79.6 - 97.7 fL [facility] Platelet mean volume (Bld) [Entitic vol] 11.4 fL 8.5 - 12.2 fL [facility] Platelets (Bld) [#/Vol] 241 10*3/uL 150 - 393 K/uL [facility] RBC (Bld) [#/Vol] 4.82 10*6/uL [facility] WBC (Bld) [#/Vol] 14.32 10*3/uL High 3.99 - 11.19 K/uL [facility] Hematocrit (Bld) [Volume fraction] 45.1 % High 34.9-44.3 [facility] Comment on above: Performed By: #### H [facility] #### [facility] (DEFAULT) [address] [place] [address]99 Hemoglobin (Bld) [Mass/Vol] 14.3 g/dL Normal 11.4-15.2 [facility] Comment on above: Performed By: #### H EMOGC #### [facility] (DEFAULT) [address] [address] MCV (RBC) [Entitic vol] 93.6 fL Normal 79.6-97.7 [facility] Comment on above: Performed By: #### H EMOGC #### [facility] (DEFAULT) [address] [address] Mean Cell Hgb 29.7 pg Normal 25.9-33.9 [facility] Comment on above: Performed By: #### H EMOGC #### [facility] (DEFAULT) [address] [address] Mean Cell Hgb Conc 31.7 g/dL Normal 31.4-35.9 [facility] Comment on above: Performed By: #### H EMOGC #### [facility] (DEFAULT) [address] [address] Platelet mean volume (Bld) [Entitic vol] 11.4 fL Normal 8.5-12.2 [facility] Comment on above: Performed By: #### H EMOGC #### [facility] (DEFAULT) [address] [address] Platelets (Bld) [#/Vol] 241 10*3/uL Normal 150-393 [facility] Comment on above: Performed By: #### H EMOGC #### [facility] (DEFAULT) [address] [address] RBC (Bld) [#/Vol] 4.82 10*6/uL Normal 3.91-5.04 [facility] Comment on above: Performed By: #### H EMOGC #### [facility] (DEFAULT) [address] [address] RBC Distribution 13.6 % Normal 10.8-14.9 [facility] Comment on above: Performed By: #### H EMOGC #### [facility] (DEFAULT) [address] [place] [address] WBC (Bld) [#/Vol] 14.32 10*3/uL High 3.99-11.19 [facility] Comment on above: Performed By: #### H [facility] #### [facility] (DEFAULT) [address] [place] [address] CHEM 7 (LYTES,BUN,CREA,GLUC) on 08-12-2024 Anion gap [Moles/Vol] 15 mmol/L 7 - 17 mmol/L [facility] Chloride [Moles/Vol] 104 mmol/L 98 - 10 8 mmol/L [facility] CO2 [Moles/Vol] 27 mmol/L 21 - 31 mmol/L [facility] Creatinine [Mass/Vol] 1.36 mg/dL High 0.50 - 1.20 mg/dL [facility] eGFR, CKD-EPI, Female 40 Low - PINF [facility] Glucose [Mass/Vol] 126 mg/dL 70 - 179 mg/dL [facility] Interpretation and review of laboratory results Abnormal [facility] Osmolality Calc [Osmolality] 313 High [facility] Potassium [Moles/Vol] 4.5 mmol/L 3.5 - 5.0 mmol/L [facility] Sodium [Moles/Vol] 141 mmol/L 135 - 145 mmol/L [facility] Urea nitrogen [Mass/Vol] 56 mg/dL High 7 - 25 mg/dL [facility] Urea nitrogen/Creatinine [Mass ratio] 41 mg/mg [facility] Anion gap [Moles/Vol] 15 mmol/L Normal 7-17 [facility] Comment on above: Performed By: #### T YPEC #### [facility] (DEFAULT) [address] [place] [address] Chloride [Moles/Vol] 104 mmol/L Normal 98-108 [facility] Comment on above: Performed By: #### T YPEC #### [facility] (DEFAULT) [address] [place] [address] CO2 [Moles/Vol] 27 mmol/L Normal 21-31 [facility] Comment on above: Performed By: #### T YPEC #### [facility] (DEFAULT) [address] [place] [address] Creatinine [Mass/Vol] 1.36 mg/dL High 0.50-1.20 [facility] Comment on above: Performed By: #### T YPEC #### [facility] (DEFAULT) [address] [place] [address] GFR/1.73 sq M.predicted among non-blacks MDRD (S/P/Bld) [Vol rate/Area] 40 mL/min/{1.73_m2} Low >=60 [facility] Comment on above: Result Comment: Repo rted eGFR is based on the CKD-EPI 2020 equation using creatinine, age, and sex. Performed By: #### T YPEC #### [facility] (DEFAULT) [address] [place] [address] Glucose [Mass/Vol] 126 mg/dL Normal Nonfastin -179 mg/dL; Fastin-99 [facility] Comment on above: Performed By: #### T YPEC #### [facility] (DEFAULT) [address] [place] [address] Osmolality [Osmolality] 313 mosm/kg High 278-305 [facility] Comment on above: Performed By: #### T YPEC #### [facility] (DEFAULT) [address] [place] [address] Potassium [Moles/Vol] 4.5 mmol/L Normal 3.5-5.0 [facility] Comment on above: Performed By: #### T YPEC #### [facility] (DEFAULT) [address] [place] [address] Sodium [Moles/Vol] 141 mmol/L Normal 135-145 [facility] Comment on above: Performed By: #### T YPEC #### [facility] (DEFAULT) [address] [place] [address] Urea nitrogen [Mass/Vol] 56 mg/dL High 7-25 [facility] Comment on above: Performed By: #### T YPEC #### [facility] (DEFAULT) [address] [place] [address] Urea nitrogen/Creatinine [Mass ratio] 41 mg/mg Normal [facility] Comment on above: Performed By: #### T YPEC #### [facility] (DEFAULT) [address] [place] [address] GLUCOSE POCon 08-12-2024 Glucose [Mass/Vol] 231 mg/dL High 70 - 179 mg/dL [facility] Interpretation and review of laboratory results Abnormal [facility] POC Sample Type CAPBL [facility] Glucose [Mass/Vol] 208 mg/dL High 70 - 179 mg/dL [facility] Interpretation and review of laboratory results Abnormal [facility] POC Sample Type CAPBL [facility] Glucose [Mass/Vol] 160 mg/dL 70 - 179 mg/dL [facility] POC Sample Type CAPBL [facility] Glucose [Mass/Vol] 107 mg/dL 70 - 179 mg/dL [facility] POC Sample Type CAPBL [facility] MAGNESIUMon 08-12-2024 Interpretation and review of laboratory results Normal [facility] Magnesium [Mass/Vol] 2.2 mg/dL 1.6 - 2 .6 mg/dL [facility] Magnesium [Mass/Vol] 2.2 mg/dL Normal 1.6-2.6 [facility] Comment on above: Performed By: #### T YPEC #### [facility] (DEFAULT) [address] [place] [address] No Panel Informationon 08-12 [facility] SURG PATH REQUESTOrdered By: Renae Glez on 08-12-2024 Case Report [facility] Clinical History f9wfyCNlYTUwcVViIPLq NVx hajCwNYZxpGKbY2GtptlzRJ jhHG9wGA1goPdmoSVrvVFfF NRnEpArj0bif952xTPwd7jo TTFZsteulBo7iLyqF70ha2E 5EpmqF0udYRHcOZlvBMVvGI pvsOGbHGq9RFVltRGjncEdP eTgYKCalUVwuCV5UOXoTZ4e tdiiCSzrHWtnJUVhkiW9RIQ myIJgI0HrVQMhXL2bkbrjOI I9NBgkBSWfSLQ2TeNwJORae 3Yvnpg9OlVvoMp0c1suWSSd BCSkeKhoc4arUEE1ZUOmtIB sX5suqV2gBDQdLR4ecpzge3 hoSTrdDNxnEQFioOO0mzW1G WWtjMIhG1UyjF8tXNAkMKOo atVnpInyaR0iWeIeYMeaDvX aFt8QKOkIMzSiNZKxo9FpBP KvGCCIwKOgir1goVI8XYZAn 39pBoRzHQYqjHYbcRJIjPQ9 o6A0YcUiFx0svJYvuIIohUI gsAC9c1V6ASQmu3MuQNWiHq xwYXJ9 [facility] For Immediate Release to Patient's MyChart? Yes Yes [facility] Gross Description x6xgfMEmMJOmb6ttLUNd bGF uZzEwMzNcZnRuYmpcdWMxIH tccnRmMVxlcGljMTExMDVcY R7uiVdyeMw6uVyhZVWzohG1 vSAdVOwon6ftUZT3i7invkp xVZRxMWddLd3caVYncDzbOb CkQPBmRHq2sO93YUOejH6bn HWiAOzasdKgRAHcN2LwYK7l YYkdpLFtWWL1mFlkKTIdfoj eNtJ9PTorYDBqpnakHHx0CA ttNPKdzWK0FEDihGEqX2GwH XUcKQ1wpff6TAD8ROyqJCKx OwL7RRYspRIlKENgdGwqCKd dl909ULY2BiOiJJCrbgYmwS osqU3xOtLdLISOcCVis7LxB 1xkMC2qbFFhbfCbTMm3HGZp eJ8mq86jBPXgh0Egguq8TRz wTqBxGNRgG55btFLmkpGzHA dpdGggdGhlIHBhdGllbnQnc yDwEZ1sUIVyAOOrE0Rlj5Ui t15eynUbSaJrMxBonMZcYEG pcocgHcImTMesOyRwEkn4LW IgVGhlIHNwZWNpbWVuIGlzI JXvl7pvspN0BCErPgnmo4Qd kTHnTHCchvCmvHExOK5kRLC jdmUxw3HjQA4yICEtabJnLh SiQ50repMpNM7zTCRrpw0xp F6iBYWoZrGqrAdvu4NdOUMt uo5dKALrPqC3bFK4duTvWdW mS35weZ7oF0SbQGVzq0WgWQ umTW5tnI8bSlBkBUXyQDCxn LKmWCXcybIHZMCsJMBiPI2g rLh7EBfwHuvCPFumTyOqCRM 8AVGcku71QBY5DxIis2U8BH KsZqWpUPUtYL2bfHopOPFtF L2pERToC2oveK4bmmx5JzXp RZNcJcJ4DVFapxT2Xzy8WYJ fWGggk6vlr1MiHZKzSXl7bQ hnFcWsPBUtu1fgyqVbReUfA MLeYQZxRJJucDRgT556p4to q1eylvJpaOS4TGAiPFO6ECa fwpFwuyY4UIjysLPbLkC1HL vugrPgGUukpiFtmhNiSqa5H NDqC583DRU9nWlcn0yhJPD3 XRZuQHYsElFoVu6ijYQlF46 7NNZzZTPGHAEzlZh4LMUyua FyglQrxZLKc437C972v6yhS IYlbkEkcSjIixdpp4ddJ147 XHBhcGVydzEyMjQwXHBhcGV ykJF4LEItTP2oehudNCrkYC sgQQZyntO2FKFpiTRuR8XpG XOgRX2exesfVSX2XNdtVBUd GZO2RvJrJXHfy4Ikprs0BdA ekp4dpc74ZNZ9o8EdnSmkHK L2YNH7NlSmMq6klYYrUDOlW M6xSwRmbACnJHVdka16vOqg MRipbwUbuS7uEtYgDTAetMD eMNNnRA8tmNSiZDYxiQ5ist xjXHBnYnJkcmhlYWRccGdic kAgLc4qhXqqVLM0HCfrW1kj zE2qMpX9IClxE2rowQ6sXDb 3KLtztMX2WYGugP9vZT9ibi rsa8kcQAxrACaxRSFlkwS9o nA2RJVfyJNiX4ZlcR1oCTCb GL9ivsbje7lwUAN9ATihBXD xYAD0LaYeZJSwo4Lemrr0Yx Cps7VsdHKtCFshF83oj782U XDoclFpI2ruwVGosfemwQDv crspIXzhbnY8MSKsYCWzCOu uXGYxXGZzMjJcbGFuZzEwMz NcaGljaFxmMVxkYmNoXGYxX MgiF4yrAdVkCzSkAhVRiy0p o8DaBUGmzuD1jVimGMDae2W vz0NxEuZZKHLaK8UjRQ8mjJ QiFEZhse68 [facility] Microscopic Description v4pzsUQfQKLywTVz ZjIyMDA kWPPiu1ztCUDfbROnLoDeZu NcZnRuYmpcdWMxXGRlZmYwe 8uuo461tIUus1rsHYTnXnA0 hYLbUJQghIWxL683WSHpNVs za6box8NkOLBjyIRdw0D6LG VGltykrEw5sZgyL06du9K5J nznC2cxUNDhQOBrB4PaZB0e RVYiCgs3UVA5IFG9AXJjXRT bM1NpPL8lAUEshBDiKCy3d1 cjdMduGESgMVS8e4vyNHjsp gGvIR8mqp4bkKi8z0gqkcXc UYOwHZDqxDUGGPXkU2CqeVp pAs4opRo9xBiyQipsPSH2Pj h7VO8fsm00hps6jVovKCDfa nyeVcA9MBrnPKPpmmvyCGq2 ZRuaOVNmtLA0YCXnnHGbO1K pYYQmCG6rwtt6TCT1IElvAO CqZyU0UMHbqZIvVCCdwGllY Yqxk417OBC4ZrNaBQ1rV7Rx x0E5tF2ciLHiCBCykWOzPcV gXJQsnc8xkZJsKRdcq8GgDS H1xmG7cFNelNWpXQBjPH98Z fpqr3AnJvncGZO1BPFhkoVt x3Bej1crVtUzawHdU5jmN8G yZHJoZWFkXHBnYnJkcmZvb3 Ifb9GawURbmSu6r7ueYMEtA AFryUrjh6cyRGZ7FAIeT2M9 vIKcz0mpUPmgNPEnlDQ2fwL 0TZQixEUgO2IwoN3gFRFzCO 2ivnf9a5bvPIC8PEqrVNLfB iU7rcT3KKLqpECwXZLbkUtp QWpyj494QRF2VfYvJARdk1T xL9JwwSdzC87vqZrjE99hSK QhaRdskD6akCxztK0rBhStD nMyNFxxbFxwbGFpblxmMVxm ytPbNPtnusynOZVzYKrkT0v dUdJyPDVccEfkQXpbe6DaHN XlFUXcXdLhOWLloETzx9Oub 9QeWiYdhRJolY3riRupoyB9 QLOmgBOcAy3auWHmNsNwwHA yfQ== [facility] Pathologic Diagnosis w5qrqNFvFPEacIEuLLM wNVx dscHmNVEaeLVeD2UdkhghZG lhQB4sPS1ygXojyCGerWCqS QRmHtDbh4jvb742rCIqx1kb HFJBybbbpCr4e0tcFGNJqE4 lt1m9jQ37PWUnkO4bvYPlDL nzlgOkKSfopjTzwcNkMfh6B OD6eDtwTfxjxZG4wJMyyMA3 QUcif4XawClinWglRLLvWPS yDXO9F3upeML3tBKfuAnxwI UjOD4wy0jnjKD9zgFrGGT1s WclsTU9pRsuezgza4xbuMP1 eOX8WOllgFH8IYfxJdInL7n tCULiaI2oB99gH8zjGQPauI izVEjqSTBrvEY8EYR4WYNcw 1xsZXZlbHRleHRcJzAxXCdi Ale9b7fwKIJoiW39gLPonpM 7fVxmMVxmczIwXGxpMzYwXG ZpMTgwfXtcbGlzdGxldmVsX EiucbDjwwUjImWcuRQ1FAom FoXfUpAgbVW5GZtoSvSkjRQ 6OLuxdHCjuSO4THmdyTC5BN w7LTg1EAslBHnyKka7fYfyz UD3INulaP4xMRWdW45nZoSy WqWuTA88CZzcc6YkTHYzlDb oFSFoeN5oDcLrPCnnekKnir ZjbjIzXGxldmVsamMwXGxld zBfa0TiokEorVX0UOzrhnHv fLR4gDnxOIIwQ6P8Y336OEi nbnOgrwZsTkHpssg9KVXrWE IoLrF2n0afyJQ1tEP8NKayu UL7PAfjIzIqF2goXLGtnB8t H09gP9olPUOuaUndQOeoLLL qrCK8PRS4UKXbx2ovFGLmoT JmpBUbAgIoJWpiZfd6b6gzK YAqpN21aBAubdE4qAgbIZps czIwfXtcbGlzdGxldmVsXGx giyPwxlXqIvTucUG4PQnmYo LiVcPpiEV3BQstPkGwtQK1N UtysMRdlLN0SPygbCU5JNz3 PVa1DTdvVPkeFbu8yAcbzTL 2PFuzoC1gNXSfR67pUbSpZh HmZI26KSmcr6HvIEPmuOwbI JZtlI3eYkCrKUxrwgEueaPt bjIzXGxldmVsamMwXGxldmV pr5GtmxLcxLQ5SCsvyxTbjK O2sYxkLMWcI2V0J802SNcmd bZvsaHfAhNignr5WPQpZDQz FkL0j6ccnTO5wCS8BIjqfHO 7FRnuJbTlS7pjUFIqtV4tB8 6dG5unAXXhfVtaASokPFPfm XW7HMT4STDnp6seDJJkdPFn cQQeGcIbJQqyIth8s5txCPI mbM45dUCvyxV5pTliMCfgmf IwfXtcbGlzdGxldmVsXGxld qAeikJvYsUogDD4QBnlNhFq RwDmoKF6DHvdVdPcgEB0DUv ajWJiqQA4XVowySV2CWp9KU k8PJidAUrsKog0hFebnEC5T EufqF8lGLLcA70lXzQmTdHv LI58MIygo3NzXUAjoSuiSWJ euL8uVeEaNAgdogTxotLpko IzXGxldmVsamMwXGxldmVsc 2NsdpOqxPK3UXmxzyIlbMS7 jYwgNHMhR2H2E264REggxkH mnuBmSlOlwtg3NKOcGSVsZq O2eL55ULzmmTzggB99QBUlc OVxzOKwpJG2TIpjqPllcB50 LYBdoSCtZTfvh1FxUURiCcM 7UtPuSALayAnzgU33SYHpjO ZnB466eqLrMNitQN60AEDid GVydzEyMjQwXHBhcGVyaDE1 MNDlSE7comnpKUmeXTznMIW btlQ3DARrfEJqK2LnJGTlZC 0xvhcaTTU6JEanHNFaJKP8M cRaIEQqm6Xkysz8JdKggBBe CYfagPMtrjqgJMFxZuXhW8L gTCYsVJG8m64aJ7axYGEpo2 BzeTpccGFyXGxpMzYwXGZpM AryBNgaigC2LDgpycQdnUi3 rRBfaPmpyC6qPwconfMdSQR hFEGCf4UauDHaer1kgP8jQQ FocuCBmbLCEFzwT75mOPK4G MMzcIqem2CxCCyaEH43aTFs ZWRccGFyfQ== [facility] Professional Interpretation Performed at: g6ycgIQmZXYfvNBiPgCcMOY zRKYvc4cbSNDqgKCzGwLiTl NcZnRuYmpcdWMxXGRlZmYwe 1pyl659cMWrc3xlYGGcRzC2 eHYtSTCghJRvP925UEMlAGn pn7bej2TtCPJqkPXcr9J2BR IWjbprpPp0vIpxR88gn2M5V ilzC4irUAZkIGGjM2HoOT1p MZCzGns1PSS1DOD8XFWaHVA cQ5MfGN1sBZLafUZqUXx1w3 gltZgyAJUuJIM9s7zdNZlxq wLaXX8laj2ddZp3j5wwujAr HFOcYNYevUHCZVSuC5PlaBv vHc7vfNa1zYjlErhrERT1Oc p1DM6hkr67sqo1yVvcAFGoz acpDsM6AWszTCSqfejbGPu9 SXioBXChsZX5KIQahGVcY5W xMNJvIY4ukss1WLL3XXalKC JfCxD8RYSvpBCdSNZozEsjG Hlhz146ZNB7SvVgZD0bL3Gi x1J4pR3ieJSfMFVsfSVbOsP fSRGcou8leOYsZTkxk9AuFY P7erK1oZXjmKRwMTEkJR54N mqdf6AhAwtzNOP9SWYahzWb g2Lru3csGnUebuFyM0ekT0X yZHJoZWFkXHBnYnJkcmZvb3 Ctg7FhyINlwFl4u5mgFBItD CVscEewc3orORM1KJYkP1H0 eZTly9jvQEdoGRNvwNK1nvL 5WVLfqLZsH4QfiR7dYLHyMC 8smrg6h7yzTXH2ZXhwZNRwC xL2lqD2XCUkpMBsWJRnkJks SCmxx284ESQ6JbThGOKbw5L tU2BkpQckB97npNruD34mRX QuiSqphT7bvXmmwP3jNwCqW nMyNFxwYXJkXHBsYWluXGYx XGZzMjJcbGFuZzEwMzNcaGl jaFxmMVxkYmNoXGYxXGxvY2 lcNvBrZoQcPxAHC9FlN9TDY eFMUC7ZKWsMSAqmK5UZVHSG EDBSFB3XF2TSBNuWQh7UZLQ URervzWIkOGAgIUBUHON6YJ RdmEjbOHWoBMTeamWIt2t1e YH5qxnhI5znekW5MkXqNYsy YXJ9 [facility] CBC,PLATELETSon 08-11-2024 Erythrocyte distribution width (RBC) [Ratio] 13.7 % 10.8 - 14.9 % [facility] Hematocrit (Bld) [Volume fraction] 43.2 % 34.9 - 44.3 % [facility] Hemoglobin (Bld) [Mass/Vol] 14 g/dL 11.4 - 15.2 g/dL [facility] Interpretation and review of laboratory results Abnormal [facility] MCH (RBC) [Entitic mass] 29.9 pg 25.9 - 33.9 pg [facility] MCHC (RBC) [Mass/Vol] 32.4 g/dL 31.4 - 35.9 g/dL [facility] MCV (RBC) [Entitic vol] 92.1 fL 79.6 - 97.7 fL [facility] Platelet mean volume (Bld) [Entitic vol] 11.5 fL 8.5 - 12.2 fL [facility] Platelets (Bld) [#/Vol] 240 10*3/uL 150 - 393 K/uL [facility] RBC (Bld) [#/Vol] 4.69 10*6/uL [facility] WBC (Bld) [#/Vol] 11.76 10*3/uL High 3.99 - 11.19 K/uL [facility] Hematocrit (Bld) [Volume fraction] 43.2 % Normal 34.9-44.3 [facility] Comment on above: Performed By: #### T YPEC #### [facility] (DEFAULT) [address] [address] Hemoglobin (Bld) [Mass/Vol] 14.0 g/dL Normal 11.4-15.2 [facility] Comment on above: Performed By: #### T YPEC #### [facility] (DEFAULT) [address] [address] MCV (RBC) [Entitic vol] 92.1 fL Normal 79.6-97.7 [facility] Comment on above: Performed By: #### T YPEC #### [facility] (DEFAULT) [address] [address] Mean Cell Hgb 29.9 pg Normal 25.9-33.9 [facility] Comment on above: Performed By: #### T YPEC #### [facility] (DEFAULT) [address] [address] Mean Cell Hgb Conc 32.4 g/dL Normal 31.4-35.9 [facility] Comment on above: Performed By: #### T YPEC #### [facility] (DEFAULT) [address] [address] Platelet mean volume (Bld) [Entitic vol] 11.5 fL Normal 8.5-12.2 [facility] Comment on above: Performed By: #### T YPEC #### [facility] (DEFAULT) [address] [address] Platelets (Bld) [#/Vol] 240 10*3/uL Normal 150-393 [facility] Comment on above: Performed By: #### T YPEC #### [facility] (DEFAULT) [address] [address] RBC (Bld) [#/Vol] 4.69 10*6/uL Normal 3.91-5.04 [facility] Comment on above: Performed By: #### T YPEC #### [facility] (DEFAULT) [address] [place] [address] RBC Distribution 13.7 % Normal 10.8-14.9 [facility] Comment on above: Performed By: #### T YPEC #### [facility] (DEFAULT) [address] [place] [address] WBC (Bld) [#/Vol] 11.76 10*3/uL High 3.99-11.19 [facility] Comment on above: Performed By: #### T YPEC #### [facility] (DEFAULT) [address] [place] [address] CHEM 7 (LYTES,BUN,CREA,GLUC) on 08-11-2024 Anion gap [Moles/Vol] 14 mmol/L 7 - 17 mmol/L [facility] Chloride [Moles/Vol] 103 mmol/L 98 - 10 8 mmol/L [facility] CO2 [Moles/Vol] 26 mmol/L 21 - 31 mmol/L [facility] Creatinine [Mass/Vol] 1.32 mg/dL High 0.50 - 1.20 mg/dL [facility] eGFR, CKD-EPI, Female 41 Low - PINF [facility] Glucose [Mass/Vol] 127 mg/dL 70 - 179 mg/dL [facility] Interpretation and review of laboratory results Abnormal [facility] Osmolality Calc [Osmolality] 306 High [facility] Potassium [Moles/Vol] 4.6 mmol/L 3.5 - 5.0 mmol/L [facility] Sodium [Moles/Vol] 138 mmol/L 135 - 145 mmol/L [facility] Urea nitrogen [Mass/Vol] 53 mg/dL High 7 - 25 mg/dL [facility] Urea nitrogen/Creatinine [Mass ratio] 40 mg/mg [facility] Anion gap [Moles/Vol] 14 mmol/L Normal 7-17 [facility] Comment on above: Performed By: #### H EMO #### [facility] (DEFAULT) [address] [place] [address] Chloride [Moles/Vol] 103 mmol/L Normal 98-108 [facility] Comment on above: Performed By: #### H [facility] #### [facility] (DEFAULT) [address] [place] [address] CO2 [Moles/Vol] 26 mmol/L Normal 21-31 [facility] Comment on above: Performed By: #### H EMO #### [facility] (DEFAULT) [address] [place] [address] Creatinine [Mass/Vol] 1.32 mg/dL High 0.50-1.20 [facility] Comment on above: Performed By: #### H [facility] #### [facility] (DEFAULT) [address] [place] [address] GFR/1.73 sq M.predicted among non-blacks MDRD (S/P/Bld) [Vol rate/Area] 41 mL/min/{1.73_m2} Low >=60 [facility] Comment on above: Result Comment: Repo rted eGFR is based on the CKD-EPI 2020 equation using creatinine, age, and sex. Performed By: #### H [facility] #### [facility] (DEFAULT) [address] [place] [address] Glucose [Mass/Vol] 127 mg/dL Normal Nonfastin -179 mg/dL; Fastin-99 [facility] Comment on above: Performed By: #### H [facility] #### [facility] (DEFAULT) [address] [place] [address] Osmolality [Osmolality] 306 mosm/kg High 278-305 [facility] Comment on above: Performed By: #### H [facility] #### [facility] (DEFAULT) [address] [place] [address] Potassium [Moles/Vol] 4.6 mmol/L Normal 3.5-5.0 [facility] Comment on above: Performed By: #### H EMO #### [facility] (DEFAULT) [address] [place] [address] Sodium [Moles/Vol] 138 mmol/L Normal 135-145 [facility] Comment on above: Performed By: #### H EMOGC #### [facility] (DEFAULT) [address] [place] [address] Urea nitrogen [Mass/Vol] 53 mg/dL High 7-25 [facility] Comment on above: Performed By: #### H EMO #### [facility] (DEFAULT) [address] [place] [address] Urea nitrogen/Creatinine [Mass ratio] 40 mg/mg Normal [facility] Comment on above: Performed By: #### [facility] #### [facility] (DEFAULT) [address] [place] [address] GLUCOSE POCon 08-11-2024 Glucose [Mass/Vol] 213 mg/dL High 70 - 179 mg/dL [facility] Interpretation and review of laboratory results Abnormal [facility] POC Sample Type CAPBL [facility] Glucose [Mass/Vol] 255 mg/dL High 70 - 179 mg/dL [facility] Interpretation and review of laboratory results Abnormal [facility] POC Sample Type [facility] Glucose [Mass/Vol] 190 mg/dL High 70 - 179 mg/dL [facility] Interpretation and review of laboratory results Abnormal [facility] POC Sample Type [facility] Glucose [Mass/Vol] 205 mg/dL High 70 - 179 mg/dL [facility] Interpretation and review of laboratory results Abnormal [facility] POC Sample Type [facility] MAGNESIUMon 08-11-2024 Interpretation and review of laboratory results Normal [facility] Magnesium [Mass/Vol] 1.9 mg/dL 1.6 - 2 .6 mg/dL [facility] Magnesium [Mass/Vol] 1.9 mg/dL Normal 1.6-2.6 [facility] Comment on above: Performed By: #### M GO, CHM7 #### [facility] (DEFAULT) [address] [place] [address] No Panel Informationon 08-11 [facility] BLOOD CULTUREon 08-10-2024 Bacteria identified Cx Nom (Unsp spec) NO GROWTH DAY 5 OF 5 Normal [facility] Comment on above: Order Comment: 2 Bot tles (1 Set - consists of 1 Aerobic bottle and 1 Anaerobic bottle) -1st Peripheral DrawFor vacutainer method draw: Fill aerobic bottle first, then anaerobicResults may be compromised due to LOW VOLUME of the BACT\ALERT bottle UNDER 8mLs, which can be associated with decreased sensitivity. The optimal blood volume is 8-10mLs per aerobic/anaerobic blood culture bottle. Performed By: #### T YPEC #### [facility] (DEFAULT) [address] [place] [address] Bacteria identified Cx Nom (Unsp spec) NO GROWTH DAY 5 OF 5 Normal [facility] Comment on above: Order Comment: 2 Bot tles (1 Set - consists of 1 Aerobic bottle and 1 Anaerobic bottle) - 1st Peripheral Draw For vacutainer method draw: Fill aerobic bottle first, then anaerobic Results may be compromised due to HIGH VOLUME of the BACT\ALERT bottle EXCEEDING 10mLs, which can be associated with increased contamination. The optimal blood volume is 8-10mLs per aerobic/anaerobic blood culture bottle. Performed By: #### B LDCULT #### [facility] (DEFAULT) [address] [place] [address]27 CBC,PLATELETSon 08-10-2024 Erythrocyte distribution width (RBC) [Ratio] 13.3 % 10.8 - 14.9 % [facility] Hematocrit (Bld) [Volume fraction] 45.1 % High 34.9 - 44.3 % [facility] Hemoglobin (Bld) [Mass/Vol] 14.1 g/dL 11.4 - 15.2 g/dL [facility] Interpretation and review of laboratory results Abnormal [facility] MCH (RBC) [Entitic mass] 29.1 pg 25.9 - 33.9 pg [facility] MCHC (RBC) [Mass/Vol] 31.3 g/dL Low 31.4 - 35.9 g/dL [facility] MCV (RBC) [Entitic vol] 93 fL 79.6 - 97.7 fL [facility] Platelet mean volume (Bld) [Entitic vol] 11.4 fL 8.5 - 12.2 fL [facility] Platelets (Bld) [#/Vol] 216 10*3/uL 150 - 393 K/uL [facility] RBC (Bld) [#/Vol] 4.85 10*6/uL [facility] WBC (Bld) [#/Vol] 13.78 10*3/uL High 3.99 - 11.19 K/uL [facility] Hematocrit (Bld) [Volume fraction] 45.1 % High 34.9-44.3 [facility] Comment on above: Performed By: #### H [facility] #### [facility] (DEFAULT) [address] [place] [address] Hemoglobin (Bld) [Mass/Vol] 14.1 g/dL Normal 11.4-15.2 [facility] Comment on above: Performed By: #### H EMO #### [facility] (DEFAULT) [address] [place] [address] MCV (RBC) [Entitic vol] 93.0 fL Normal 79.6-97.7 [facility] Comment on above: Performed By: #### H EMO #### [facility] (DEFAULT) [address] [place] [address] Mean Cell Hgb 29.1 pg Normal 25.9-33.9 [facility] Comment on above: Performed By: #### H EMOGC #### [facility] (DEFAULT) [address] [place] [address] Mean Cell Hgb Conc 31.3 g/dL Low 31.4-35.9 [facility] Comment on above: Performed By: #### H EMOGC #### [facility] (DEFAULT) [address] [place] [address] Platelet mean volume (Bld) [Entitic vol] 11.4 fL Normal 8.5-12.2 [facility] Comment on above: Performed By: #### H EMOGC #### [facility] (DEFAULT) [address] [place] [id number] Platelets (Bld) [#/Vol] 216 10*3/uL Normal 150-393 [facility] Comment on above: Performed By: #### H EMOGC #### [facility] (DEFAULT) [address] [place] [address] RBC (Bld) [#/Vol] 4.85 10*6/uL Normal 3.91-5.04 [facility] Comment on above: Performed By: #### H EMOGC #### [facility] (DEFAULT) [address] [place] [address] 17685 RBC Distribution 13.3 % Normal 10.8-14.9 [facility] Comment on above: Performed By: #### H EMOGC #### [facility] (DEFAULT) [address] [place] [address] 92453 WBC (Bld) [#/Vol] 13.78 10*3/uL High 3.99-11.19 [facility] Comment on above: Performed By: #### H EMOGC #### [facility] (DEFAULT) [address] [address] CHEM 7 (LYTES,BUN,CREA,GLUC) on 08-10-2024 Anion gap [Moles/Vol] 16 mmol/L 7 - 17 mmol/L [facility] Chloride [Moles/Vol] 103 mmol/L 98 - 10 8 mmol/L [facility] CO2 [Moles/Vol] 24 mmol/L 21 - 31 mmol/L [facility] Creatinine [Mass/Vol] 1.36 mg/dL High 0.50 - 1.20 mg/dL [facility] eGFR, CKD-EPI, Female 40 Low - PINF [facility] Glucose [Mass/Vol] 186 mg/dL High 70 - 179 mg/dL [facility] Interpretation and review of laboratory results Abnormal [facility] Osmolality Calc [Osmolality] 308 High [facility] Potassium [Moles/Vol] 4.9 mmol/L 3.5 - 5.0 mmol/L [facility] Sodium [Moles/Vol] 138 mmol/L 135 - 145 mmol/L [facility] Urea nitrogen [Mass/Vol] 47 mg/dL High 7 - 25 mg/dL [facility] Urea nitrogen/Creatinine [Mass ratio] 35 mg/mg [facility] Anion gap [Moles/Vol] 16 mmol/L Normal 7-17 [facility] Comment on above: Performed By: #### CAMERON PALACIOS ####[facility] (DEFAULT)[address] [place] [address] Chloride [Moles/Vol] 103 mmol/L Normal 98-108 [facility] Comment on above: Performed By: #### CAMERON PALACIOS ####[facility] (DEFAULT)[address] [place] [address] CO2 [Moles/Vol] 24 mmol/L Normal 21-31 [facility] Comment on above: Performed By: #### CAMERON PALACIOS ####[facility] (DEFAULT)[address] [place] [address] Creatinine [Mass/Vol] 1.36 mg/dL High 0.50-1.20 [facility] Comment on above: Performed By: #### CAMERON PALACIOS ####[facility] (DEFAULT)[address] [facility] [place] [address] GFR/1.73 sq M.predicted among non-blacks MDRD (S/P/Bld) [Vol rate/Area] 40 mL/min/{1.73_m2} Low >=60 [facility] Comment on above: Result Comment: Repo rted eGFR is based on the CKD-EPI 2020 equation using creatinine, age, and sex. Performed By: #### HEYDI PALACIOS7 ####[facility] (DEFAULT)[address] [place] [address] Glucose [Mass/Vol] 186 mg/dL High Nonfastin -179 mg/dL; Fastin-99 [facility] Comment on above: Performed By: #### Jaiden NGUYEN CHM7 ####[facility] (DEFAULT)[address] [facility] [place] [address] Osmolality [Osmolality] 308 mosm/kg High 278-305 [facility] Comment on above: Performed By: #### Jaiden NGUYEN CHM7 ####[facility] (DEFAULT)[address] [place] [address] Potassium [Moles/Vol] 4.9 mmol/L Normal 3.5-5.0 [facility] Comment on above: Performed By: #### Jaiden NGUYEN CHM7 ####[facility] (DEFAULT)[address] [place] [address] Sodium [Moles/Vol] 138 mmol/L Normal 135-145 [facility] Comment on above: Performed By: #### Jaiden NGUYEN CHM7 ####[facility] (DEFAULT)[address] [place] [address] Urea nitrogen [Mass/Vol] 47 mg/dL High 7-25 [facility] Comment on above: Performed By: #### Jaiden NGUYEN CHM7 ####[facility] (DEFAULT)[address] [place] [address] Urea nitrogen/Creatinine [Mass ratio] 35 mg/mg Normal [facility] Comment on above: Performed By: #### M [facility] ####[facility] (DEFAULT)[address] [place] [address] GLUCOSE POCon 08-10-2024 Glucose [Mass/Vol] 144 mg/dL 70 - 179 mg/dL [facility] POC Sample Type [facility] Glucose [Mass/Vol] 177 mg/dL 70 - 179 mg/dL [facility] POC Sample Type [facility] Glucose [Mass/Vol] 180 mg/dL High 70 - 179 mg/dL [facility] Interpretation and review of laboratory results Abnormal [facility] POC Sample Type CAPBL [facility] Glucose [Mass/Vol] 193 mg/dL High 70 - 179 mg/dL [facility] Interpretation and review of laboratory results Abnormal [facility] POC Sample Type CAPBL [facility] Glucose [Mass/Vol] 200 mg/dL High 70 - 179 mg/dL [facility] Interpretation and review of laboratory results Abnormal [facility] POC Sample Type [facility] Glucose [Mass/Vol] 198 mg/dL High 70 - 179 mg/dL [facility] Interpretation and review of laboratory results Abnormal [facility] POC Sample Type CAPBL [facility] MAGNESIUMon 08-10-2024 Interpretation and review of laboratory results Normal [facility] Magnesium [Mass/Vol] 1.8 mg/dL 1.6 - 2 .6 mg/dL [facility] Magnesium [Mass/Vol] 1.8 mg/dL Normal 1.6-2.6 [facility] Comment on above: Performed By: #### M [facility] ####[facility] (DEFAULT)[address] [place] [address] No Panel Informationon 08-10 [facility] URINE CULTUREOrdered By: Franklin Carcamo on 08-10-2024 Bacteria identified Cx Nom (Unsp spec) Growth [facility] Bacteria identified Cx Nom (Unsp spec) KLEBSIELLA PNEUMONIAE Abnormal [facility] Interpretation and review of laboratory results Abnormal [facility] CBC,PLATELETSon 08-09-2024 Erythrocyte distribution width (RBC) [Ratio] 13.5 % 10.8 - 14.9 % [facility] Hematocrit (Bld) [Volume fraction] 44.4 % High 34.9 - 44.3 % [facility] Hemoglobin (Bld) [Mass/Vol] 14.1 g/dL 11.4 - 15.2 g/dL [facility] Interpretation and review of laboratory results Abnormal [facility] MCH (RBC) [Entitic mass] 29.4 pg 25.9 - 33.9 pg [facility] MCHC (RBC) [Mass/Vol] 31.8 g/dL 31.4 - 35.9 g/dL [facility] MCV (RBC) [Entitic vol] 92.7 fL 79.6 - 97.7 fL [facility] Platelet mean volume (Bld) [Entitic vol] 11.5 fL 8.5 - 12.2 fL [facility] Platelets (Bld) [#/Vol] 226 10*3/uL 150 - 393 K/uL [facility] RBC (Bld) [#/Vol] 4.79 10*6/uL [facility] WBC (Bld) [#/Vol] 12.37 10*3/uL High 3.99 - 11.19 K/uL [facility] Hematocrit (Bld) [Volume fraction] 44.4 % High 34.9-44.3 [facility] Comment on above: Performed By: #### H EMOGC #### [facility] (DEFAULT) [address] [address] Hemoglobin (Bld) [Mass/Vol] 14.1 g/dL Normal 11.4-15.2 [facility] Comment on above: Performed By: #### H EMOGC #### [facility] (DEFAULT) [address] [address] MCV (RBC) [Entitic vol] 92.7 fL Normal 79.6-97.7 [facility] Comment on above: Performed By: #### H EMOGC #### [facility] (DEFAULT) [address] [address] Mean Cell Hgb 29.4 pg Normal 25.9-33.9 [facility] Comment on above: Performed By: #### H EMOGC #### [facility] (DEFAULT) [address] [address] Mean Cell Hgb Conc 31.8 g/dL Normal 31.4-35.9 [facility] Comment on above: Performed By: #### H EMOGC #### [facility] (DEFAULT) [address] [address] Platelet mean volume (Bld) [Entitic vol] 11.5 fL Normal 8.5-12.2 [facility] Comment on above: Performed By: #### H EMOGC #### [facility] (DEFAULT) [address] [address] Platelets (Bld) [#/Vol] 226 10*3/uL Normal 150-393 [facility] Comment on above: Performed By: #### H EMOGC #### [facility] (DEFAULT) [address] [address] RBC (Bld) [#/Vol] 4.79 10*6/uL Normal 3.91-5.04 [facility] Comment on above: Performed By: #### H EMOGC #### [facility] (DEFAULT) [address] [place] [address] RBC Distribution 13.5 % Normal 10.8-14.9 [facility] Comment on above: Performed By: #### H [facility] #### [facility] (DEFAULT) [address] [place] [address] WBC (Bld) [#/Vol] 12.37 10*3/uL High 3.99-11.19 [facility] Comment on above: Performed By: #### H [facility] #### [facility] (DEFAULT) [address] [place] [address] CHEM 7 (LYTES,BUN,CREA,GLUC) on 08-09-2024 Anion gap [Moles/Vol] 14 mmol/L 7 - 17 mmol/L [facility] Chloride [Moles/Vol] 103 mmol/L 98 - 10 8 mmol/L [facility] CO2 [Moles/Vol] 26 mmol/L 21 - 31 mmol/L [facility] Creatinine [Mass/Vol] 1.35 mg/dL High 0.50 - 1.20 mg/dL [facility] eGFR, CKD-EPI, Female 40 Low - PINF [facility] Glucose [Mass/Vol] 182 mg/dL High 70 - 179 mg/dL [facility] Interpretation and review of laboratory results Abnormal [facility] Osmolality Calc [Osmolality] 305 [facility] Potassium [Moles/Vol] 4.9 mmol/L 3.5 - 5.0 mmol/L [facility] Sodium [Moles/Vol] 138 mmol/L 135 - 145 mmol/L [facility] Urea nitrogen [Mass/Vol] 38 mg/dL High 7 - 25 mg/dL [facility] Urea nitrogen/Creatinine [Mass ratio] 28 mg/mg [facility] Anion gap [Moles/Vol] 14 mmol/L Normal 7-17 [facility] Comment on above: Performed By: #### H [facility] #### [facility] (DEFAULT) [address] [place] [address] Chloride [Moles/Vol] 103 mmol/L Normal 98-108 [facility] Comment on above: Performed By: #### H [facility] #### [facility] (DEFAULT) [address] [place] [address] CO2 [Moles/Vol] 26 mmol/L Normal 21-31 [facility] Comment on above: Performed By: #### H EMO #### [facility] (DEFAULT) [address] [place] [address] Creatinine [Mass/Vol] 1.35 mg/dL High 0.50-1.20 [facility] Comment on above: Performed By: #### H [facility] #### [facility] (DEFAULT) [address] [place] [address] GFR/1.73 sq M.predicted among non-blacks MDRD (S/P/Bld) [Vol rate/Area] 40 mL/min/{1.73_m2} Low >=60 [facility] Comment on above: Result Comment: Repo rted eGFR is based on the CKD-EPI 2020 equation using creatinine, age, and sex. Performed By: #### H [facility] #### [facility] (DEFAULT) [address] [place] [address] Glucose [Mass/Vol] 182 mg/dL High Nonfastin -179 mg/dL; Fastin-99 [facility] Comment on above: Performed By: #### H [facility] #### [facility] (DEFAULT) [address] [place] [address] Osmolality [Osmolality] 305 mosm/kg Normal 278-305 [facility] Comment on above: Performed By: #### [facility] #### [facility] (DEFAULT) [address] [place] [address] Potassium [Moles/Vol] 4.9 mmol/L Normal 3.5-5.0 [facility] Comment on above: Performed By: #### H EMO #### [facility] (DEFAULT) [address] [place] [address] Sodium [Moles/Vol] 138 mmol/L Normal 135-145 [facility] Comment on above: Performed By: #### H EMOGC #### [facility] (DEFAULT) [address] [place] [address] Urea nitrogen [Mass/Vol] 38 mg/dL High 7-25 [facility] Comment on above: Performed By: #### H EMO #### [facility] (DEFAULT) [address] [place] [address] Urea nitrogen/Creatinine [Mass ratio] 28 mg/mg Normal [facility] Comment on above: Performed By: #### H [facility] #### [facility] (DEFAULT) [address] [place] [address] EXTRA MICROon 08-09-2024 [facility] GLUCOSE POCon 08-09-2024 Glucose [Mass/Vol] 186 mg/dL High 70 - 179 mg/dL [facility] Interpretation and review of laboratory results Abnormal [facility] POC Sample Type CAPBL [facility] Glucose [Mass/Vol] 255 mg/dL High 70 - 179 mg/dL [facility] Interpretation and review of laboratory results Abnormal [facility] POC Sample Type CAPBL [facility] Glucose [Mass/Vol] 235 mg/dL High 70 - 179 mg/dL [facility] Interpretation and review of laboratory results Abnormal [facility] POC Sample Type CAPBL [facility] Glucose [Mass/Vol] 167 mg/dL 70 - 179 mg/dL [facility] POC Sample Type CAPBL [facility] INTERVENTIONAL UPPER ENDOSCO PYon 08-09-2024 Body surface area Derived from formula 1.9 m2 [facility] LAB, U [facility] Radiology Study observation (narrative) [facility] MAGNESIUMon 08-09-2024 Interpretation and review of laboratory results Normal [facility] Magnesium [Mass/Vol] 1.8 mg/dL 1.6 - 2 .6 mg/dL [facility] Magnesium [Mass/Vol] 1.8 mg/dL Normal 1.6-2.6 [facility] Comment on above: Performed By: #### H EMOGC #### [facility] (DEFAULT) [address] [place] [address] No Panel Informationon 08-09 [facility] PT,INR,PTTon 08-09-2024 aPTT Coag (PPP) [Time] 38.4 s High [facility] INR Coag (Bld) [Relative time] 1 {INR} 0.9 - 1.1 [facility] Interpretation and review of laboratory results Abnormal [facility] PT Coag (PPP) [Time] 13 s [facility] aPTT Coag (Bld) [Time] 38.4 s High 24.0-34.3 [facility] Comment on above: Performed By: #### B LDCULT #### [facility] (DEFAULT) [address] [place] [address] INR Coag (PPP) [Relative time] 1.0 {INR} Normal 0.9-1.1 [facility] Comment on above: Performed By: #### B LDCULT #### [facility] (DEFAULT) [address] [place] [address] PT Coag (PPP) [Time] 13.0 s Normal 11.9-14.2 [facility] Comment on above: Performed By: #### B LDCULT #### [facility] (DEFAULT) [address] [place] [address] SURG PATH REQUESTon 08-10-19 Case Report [facility] Comment on above: Result Comment: Surg ical Pathology Report Case: [id number] Authorizing Provider: Judson Keith DO Collected: 08/09/2024 10:07 AM Ordering Location: [facility] Received: 08/09/2024 12:13 PM Pathologist: Renae Glez MD Specimen: STOMACH, gastric, r/o HP Performed By: #### S URGP #### [facility] (DEFAULT) [address] [place] [address] Clinical History R/O HP. Associated Diagnosis: None. Medical History: No medical history provided. [facility] Comment on above: Performed By: #### S URGP #### [facility] (DEFAULT) [address] [address] Gross Description [facility] Comment on above: Result Comment: The specimen is received in one properly labeled container with the patient's name and accession number. A. The specimen is designated gastric, r/o hp and consists of five fragments of jackson-pink soft tissue, from 0.2 up to 0.6 cm in greatest dimension. TE 1 Lab Use Only: JobID [id number] Grosser for this case was: Sunshine Hidalgo Performed By: #### S URGP #### [facility] (DEFAULT) [address] [address] Microscopic Description A microscopic examination was performed. [facility] Comment on above: Performed By: #### S URGP #### [facility] (DEFAULT) [address] [address] Pathologic Diagnosis [facility] Comment on above: Result Comment: Anjelica echols, biopsy: Focal erosion No Helicobacter pylori identified at 1005 EDT Performed By: #### S URGP #### [facility] (DEFAULT) [address] [address] Professional Interpretation Performed at: [facility] Comment on above: Result Comment: [facility] For Immediate Release [facility] [address] [address] Performed By: #### S URGP #### [facility] (DEFAULT) [address] [place] [address] CBC,PLATELETSon 08-08-2024 Erythrocyte distribution width (RBC) [Ratio] 13.6 % 10.8 - 14.9 % [facility] Hematocrit (Bld) [Volume fraction] 45.7 % High 34.9 - 44.3 % [facility] Hemoglobin (Bld) [Mass/Vol] 14.4 g/dL 11.4 - 15.2 g/dL [facility] Interpretation and review of laboratory results Abnormal [facility] MCH (RBC) [Entitic mass] 29.4 pg 25.9 - 33.9 pg [facility] MCHC (RBC) [Mass/Vol] 31.5 g/dL 31.4 - 35.9 g/dL [facility] MCV (RBC) [Entitic vol] 93.3 fL 79.6 - 97.7 fL [facility] Platelet mean volume (Bld) [Entitic vol] 10.9 fL 8.5 - 12.2 fL [facility] Platelets (Bld) [#/Vol] 212 10*3/uL 150 - 393 K/uL [facility] RBC (Bld) [#/Vol] 4.9 10*6/uL [facility] WBC (Bld) [#/Vol] 10.39 10*3/uL 3.99 - 11.19 K/uL [facility] Hematocrit (Bld) [Volume fraction] 45.7 % High 34.9-44.3 [facility] Comment on above: Performed By: #### H EMO #### [facility] (DEFAULT) [address] [place] [address] Hemoglobin (Bld) [Mass/Vol] 14.4 g/dL Normal 11.4-15.2 [facility] Comment on above: Performed By: #### H EMOGC #### [facility] (DEFAULT) [address] [place] [address] MCV (RBC) [Entitic vol] 93.3 fL Normal 79.6-97.7 [facility] Comment on above: Performed By: #### H EMOGC #### [facility] (DEFAULT) [address] [place] [address] Mean Cell Hgb 29.4 pg Normal 25.9-33.9 [facility] Comment on above: Performed By: #### H EMOGC #### [facility] (DEFAULT) [address] [address] Mean Cell Hgb Conc 31.5 g/dL Normal 31.4-35.9 [facility] Comment on above: Performed By: #### H EMOGC #### [facility] (DEFAULT) [address] [address] Platelet mean volume (Bld) [Entitic vol] 10.9 fL Normal 8.5-12.2 [facility] Comment on above: Performed By: #### H EMOGC #### [facility] (DEFAULT) [address] [address] Platelets (Bld) [#/Vol] 212 10*3/uL Normal 150-393 [facility] Comment on above: Performed By: #### H EMOGC #### [facility] (DEFAULT) [address] [address] RBC (Bld) [#/Vol] 4.90 10*6/uL Normal 3.91-5.04 [facility] Comment on above: Performed By: #### H EMOGC #### [facility] (DEFAULT) [address] [address] RBC Distribution 13.6 % Normal 10.8-14.9 [facility] Comment on above: Performed By: #### H EMOGC #### [facility] (DEFAULT) [address] [address] WBC (Bld) [#/Vol] 10.39 10*3/uL Normal 3.99-11.19 [facility] Comment on above: Performed By: #### H [facility] #### [facility] (DEFAULT) [address] [place] [address] CHEM 7 (LYTES,BUN,CREA,GLUC) on 08-08-2024 Anion gap [Moles/Vol] 15 mmol/L 7 - 17 mmol/L [facility] Chloride [Moles/Vol] 104 mmol/L 98 - 10 8 mmol/L [facility] CO2 [Moles/Vol] 25 mmol/L 21 - 31 mmol/L [facility] Creatinine [Mass/Vol] 1.15 mg/dL 0.50 - 1.20 mg/dL [facility] eGFR, CKD-EPI, Female 48 Low - PINF [facility] Glucose [Mass/Vol] 111 mg/dL 70 - 179 mg/dL [facility] Interpretation and review of laboratory results Abnormal [facility] Osmolality Calc [Osmolality] 302 [facility] Potassium [Moles/Vol] 4.3 mmol/L 3.5 - 5.0 mmol/L [facility] Sodium [Moles/Vol] 140 mmol/L 135 - 145 mmol/L [facility] Urea nitrogen [Mass/Vol] 35 mg/dL High 7 - 25 mg/dL [facility] Urea nitrogen/Creatinine [Mass ratio] 30 mg/mg [facility] Anion gap [Moles/Vol] 15 mmol/L Normal 7-17 [facility] Comment on above: Performed By: #### CAMERON PALACIOS ####[facility] (DEFAULT)[address] [place] [address] Chloride [Moles/Vol] 104 mmol/L Normal 98-108 [facility] Comment on above: Performed By: #### HEYDI PALACIOS7 ####[facility] (DEFAULT)[address] [place] [address] CO2 [Moles/Vol] 25 mmol/L Normal 21-31 [facility] Comment on above: Performed By: #### HEYDI PALACIOS7 ####[facility] (DEFAULT)[address] [place] [address] Creatinine [Mass/Vol] 1.15 mg/dL Normal 0.50-1.20 [facility] Comment on above: Performed By: #### HEYDI PALACIOS7 ####[facility] (DEFAULT)[address] [place] [address], [place] [address] GFR/1.73 sq M.predicted among non-blacks MDRD (S/P/Bld) [Vol rate/Area] 48 mL/min/{1.73_m2} Low >=60 [facility] Comment on above: Result Comment: Repo rted eGFR is based on the CKD-EPI 2020 equation using creatinine, age, and sex. Performed By: #### HEYDI PALACIOS7 ####[facility] (DEFAULT)[address] [place], [place] [address], [place] [address] Glucose [Mass/Vol] 111 mg/dL Normal Nonfastin -179 mg/dL; Fastin-99 [facility] Comment on above: Performed By: #### HEYDI PALACIOS7 ####[facility] (DEFAULT)[address] [place], [place] [address], [place] [address] Osmolality [Osmolality] 302 mosm/kg Normal 278-305 [facility] Comment on above: Performed By: #### HEYDI PALACIOS7 ####[facility] (DEFAULT)[address] [facility] [place] [address] Potassium [Moles/Vol] 4.3 mmol/L Normal 3.5-5.0 [facility] Comment on above: Performed By: #### HEYDI PALACIOS7 ####[facility] (DEFAULT)[address] [facility] [place] [address] Sodium [Moles/Vol] 140 mmol/L Normal 135-145 [facility] Comment on above: Performed By: #### M WENDY CHM7 ####[facility] (DEFAULT)[address] [place] [address] Urea nitrogen [Mass/Vol] 35 mg/dL High 7-25 [facility] Comment on above: Performed By: #### M WENDY CHM7 ####[facility] (DEFAULT)[address] [place] [address] Urea nitrogen/Creatinine [Mass ratio] 30 mg/mg Normal [facility] Comment on above: Performed By: #### M WENDY CHM7 ####[facility] (DEFAULT)[address] [place] [address] CT HEAD WITHOUT CONTRASTon 0 08-08-2024 CT [...] have reviewed and approved this report. Normal [facility] CT Head WO contraston 2024 RADIOLOGY RADIOLOGY [facility] Radiology [facility]narrative[facility]Con 08-08-2024 Glucose [Mass/Vol] 150 mg/dL 70 - 179 mg/dL [facility] [Mass/Vol] 148 mg/dL 70 - 179 mg/dL [facility] POC Sample Type CAPBL [facility] Glucose [Mass/Vol] 192 mg/dL High 70 - 179 mg/dL [facility] Interpretation and review of laboratory results Abnormal [facility] POC Sample Type CAPBL [facility] Glucose [Mass/Vol] 198 mg/dL High 70 - 179 mg/dL [facility] Interpretation and review of laboratory results Abnormal [facility] POC Sample Type CAPBL [facility] Glucose [Mass/Vol] 186 mg/dL High 70 - 179 mg/dL [facility] Interpretation and review of laboratory results Abnormal [facility] POC Sample Type CAPBL [facility] MAGNESIUMon 08-08-2024 Interpretation and review of laboratory results Normal [facility] Magnesium [Mass/Vol] 1.7 mg/dL 1.6 - 2 .6 mg/dL [facility] Magnesium [Mass/Vol] 1.7 mg/dL Normal 1.6-2.6 [facility] Comment on above: Performed By: #### M HILARIA NGUYENRemington ####[facility] (DEFAULT)[address] [place], [place] [id number] No Panel Informationon 08-08 [facility] URINALYSIS REFLEX TO CULTURE PERFORMABLEOrdered By: Danya Yates on 08-08-2024 Appearance (U) Cloudy Abnormal Clear [facility] Bacteria LM Ql (Urine sed) PRESENT Abnormal ABSENT [facility] Color (U) Yellow Yellow [facility] Epithelial cells.squamous LM Ql (Urine sed) 0-2/hpf 0-2/hpf, 3-5/hpf = 1+ [facility] Glucose Test strip (U) [Mass/Vol] Negative Negative [facility] Interpretation and review of laboratory results [facility] Ketones (U) [Mass/Vol] Trace Abnormal Negative [facility] Leukocyte esterase Test strip Ql (U) Large Abnormal Negative [facility] Nitrite Ql (U) Positive Abnormal Negative [facility] pH (U) 7.0 [pH] 5.0 - 7.0 [facility] Protein (U) [Mass/Vol] Trace Abnormal Negative [facility] RBC (U) [#/Vol] Trace Abnormal Negative U [facility] RBC LM.HPF (Urine sed) [#/Area] 6-10 Abnormal [facility] Specific gravity (U) [Rel density] 1.023 1.001 - 1.035 [facility] Urobilinogen (U) [Mass/Vol] 1.0 E.U./dL 0.2 E.U/dL, 1.0 E.U/dL [facility] WBC LM.HPF (Urine sed) [#/Area] /[HPF] Abnormal [facility] URINALYSIS REFLEX TO CULTURE PERFORMABLEon 08-08-2024 Appearance (U) Cloudy Abnormal Clear [facility] Comment on above: Order Comment: For i ndwelling catheters, specimen collection is acceptable on catheter day 1 and 2 only. ? Performed By: #### T YPEC #### [facility] (DEFAULT) [address] [place] [address]33 Bacteria PRESENT Abnormal ABSENT [facility] Comment on above: Order Comment: For i ndwelling catheters, specimen collection is acceptable on catheter day 1 and 2 only. ? Performed By: #### T YPEC #### [facility] (DEFAULT) [address] [place] [address] 11182 Blood Urine Trace Abnormal Negative [facility] Comment on above: Order Comment: For i ndwelling catheters, specimen collection is acceptable on catheter day 1 and 2 only. ? Performed By: #### T YPEC #### [facility] (DEFAULT) [address] [place] [address] 28978 Color (U) Yellow Normal Yellow [facility] Comment on above: Order Comment: For i ndwelling catheters, specimen collection is acceptable on catheter day 1 and 2 only. ? Performed By: #### T YPEC #### [facility] (DEFAULT) [address] [place] [address] 52394 Glucose Ql (U) Negative Normal Negative [facility] Comment on above: Order Comment: For i ndwelling catheters, specimen collection is acceptable on catheter day 1 and 2 only. ? Performed By: #### T YPEC #### [facility] (DEFAULT) [address] [place] [address]307 Ketones Ql (U) Trace Abnormal Negative [facility] Comment on above: Order Comment: For i ndwelling catheters, specimen collection is acceptable on catheter day 1 and 2 only. ? Performed By: #### T YPEC #### [facility] (DEFAULT) [address] [place] [address]390 Leukocyte esterase Test strip Ql (U) Large Abnormal Negative [facility] Comment on above: Order Comment: For i ndwelling catheters, specimen collection is acceptable on catheter day 1 and 2 only. ? Performed By: #### T YPEC #### [facility] (DEFAULT) [address] [place] [address] 76340 Nitrites Urine Positive Abnormal Negative [facility] Comment on above: Order Comment: For i ndwelling catheters, specimen collection is acceptable on catheter day 1 and 2 only. ? Performed By: #### T YPEC #### [facility] (DEFAULT) [address] [place] [address] 71802 pH (U) 7.0 [pH] Normal 5.0-7.0 [facility] Comment on above: Order Comment: For i ndwelling catheters, specimen collection is acceptable on catheter day 1 and 2 only. ? Performed By: #### T YPEC #### [facility] (DEFAULT) [address] [place] [address] 69320 Protein Urine Trace Abnormal Negative [facility] Comment on above: Order Comment: For i ndwelling catheters, specimen collection is acceptable on catheter day 1 and 2 only. ? Performed By: #### T YPEC #### [facility] (DEFAULT) [address] [place] [address] 33025 RBC Urine 6-10 Abnormal 0-2 [facility] Comment on above: Order Comment: For i ndwelling catheters, specimen collection is acceptable on catheter day 1 and 2 only. ? Performed By: #### T YPEC #### [facility] (DEFAULT) [address] [place] [address] Specific [place] Urine 1.023 Normal 1.001-1.035 [facility] Comment on above: Order Comment: For i ndwelling catheters, specimen collection is acceptable on catheter day 1 and 2 only. ? Performed By: #### T YPEC #### [facility] (DEFAULT) [address] [place] [address] 57945 Squamous/Epithelial Cells, Urine 0-2/hpf Normal 0-2/hpf, 3-5/hpf = 1+ [facility] Comment on above: Order Comment: For i ndwelling catheters, specimen collection is acceptable on catheter day 1 and 2 only. ? Performed By: #### T YPEC #### [facility] (DEFAULT) [address] [place] [address] 23561 Urobilinogen Urine 1.0 E.U./dL Normal 0.2 E.U/d L, 1.0 E.U/dL [facility] Comment on above: Order Comment: For i ndwelling catheters, specimen collection is acceptable on catheter day 1 and 2 only. ? Performed By: #### T YPEC #### [facility] (DEFAULT) [address] [address] WBC LM.HPF (Urine sed) [#/Area] /[HPF] Abnormal 0 - 5 [facility] Comment on above: Order Comment: For i ndwelling catheters, specimen collection is acceptable on catheter day 1 and 2 only. ? Performed By: #### T YPEC #### [facility] (DEFAULT) [address] [address] URINE CULTUREon 08-08-2024 Amikacin [Susceptibility] <= Invalid Interpretation Code [facility] Comment on above: Order Comment: For [...] ? Performed By: #### T YPEC #### [facility] (DEFAULT) [address] [address] Ampicillin [Susceptibility] >=32 Resistant [facility] Comment on above: Order Comment: For [...] ? Performed By: #### T YPEC #### [facility] (DEFAULT) [address] [place] [address] Ampicillin+Sulbactam [Susceptibility] >=32 Resistant [facility] Comment on above: Order Comment: For [...] Performed By: #### T YPEC #### [facility] (DEFAULT) [address] [address] ceFAZolin [Susceptibility] >= Resistant [facility] Comment on above: Order Comment: For [...] cefdinir. Performed By: #### T YPEC #### [facility] (DEFAULT) [address] [address] Cefepime [Susceptibility] <= Invalid Interpretation Code [facility] Comment on above: Order Comment: For [...] ? Performed By: #### T YPEC #### [facility] (DEFAULT) [address] [address] cefTRIAXone [Susceptibility] <= Invalid Interpretation Code [facility] Comment on above: Order Comment: For [...] ? Performed By: #### T YPEC #### [facility] (DEFAULT) [address] [address] Ciprofloxacin [Susceptibility] >= Resistant [facility] Comment on above: Order Comment: For [...] ? Performed By: #### T YPEC #### [facility] (DEFAULT) [address] [address] Ertapenem [Susceptibility] <= Invalid Interpretation Code [facility] Comment on above: Order Comment: For [...] ? Performed By: #### T YPEC #### [facility] (DEFAULT) [address] [address] Gentamicin [Susceptibility] <= Invalid Interpretation Code [facility] Comment on above: Order Comment: For [...] ? Performed By: #### T YPEC #### [facility] (DEFAULT) [address] [address] levoFLOXacin [Susceptibility] >= Resistant [facility] Comment on above: Order Comment: For [...] ? Performed By: #### T YPEC #### [facility] (DEFAULT) [address] [address] Nitrofurantoin [Susceptibility] 128 ug/mL Resistant [facility] Comment on above: Order Comment: For [...] ? Performed By: #### T YPEC #### [facility] (DEFAULT) [address] [address] Piperacillin+Tazobactam [Susceptibility] 8 ug/mL Invalid Interpretation Code [facility] Comment on above: Order Comment: For [...] ? Performed By: #### T YPEC #### [facility] (DEFAULT) [address] [address] Trimethoprim+Sulfametho xazole [Susceptibility] <= Invalid Interpretation Code [facility] Comment on above: Order Comment: For [...] ? Performed By: #### T YPEC #### [facility] (DEFAULT) [address] [address] CBC,PLATELETSon 08-07-2024 Erythrocyte distribution width (RBC) [Ratio] 13.9 % 10.8 - 14.9 % [facility] Hematocrit (Bld) [Volume fraction] 43.1 % 34.9 - 44.3 % [facility] Hemoglobin (Bld) [Mass/Vol] 13.7 g/dL 11.4 - 15.2 g/dL [facility] Interpretation and review of laboratory results Abnormal [facility] MCH (RBC) [Entitic mass] 29.6 pg 25.9 - 33.9 pg [facility] MCHC (RBC) [Mass/Vol] 31.8 g/dL 31.4 - 35.9 g/dL [facility] MCV (RBC) [Entitic vol] 93.1 fL 79.6 - 97.7 fL [facility] Platelet mean volume (Bld) [Entitic vol] 11.1 fL 8.5 - 12.2 fL [facility] Platelets (Bld) [#/Vol] 214 10*3/uL 150 - 393 K/uL [facility] RBC (Bld) [#/Vol] 4.63 10*6/uL [facility] WBC (Bld) [#/Vol] 11.3 10*3/uL High 3.99 - 11.19 K/uL [facility] CHEM 7 (LYTES,BUN,CREA,GLUC) on 08-07-2024 Anion gap [Moles/Vol] 13 mmol/L 7 - 17 mmol/L [facility] Chloride [Moles/Vol] 105 mmol/L 98 - 10 8 mmol/L [facility] CO2 [Moles/Vol] 28 mmol/L 21 - 31 mmol/L [facility] Creatinine [Mass/Vol] 1.19 mg/dL 0.50 - 1.20 mg/dL [facility] eGFR, CKD-EPI, Female 47 Low - PINF [facility] Glucose [Mass/Vol] 90 mg/dL 70 - 179 mg/dL [facility] Interpretation and review of laboratory results Abnormal [facility] Osmolality Calc [Osmolality] 304 [facility] Potassium [Moles/Vol] 4.2 mmol/L 3.5 - 5.0 mmol/L [facility] Sodium [Moles/Vol] 142 mmol/L 135 - 145 mmol/L [facility] Urea nitrogen [Mass/Vol] 34 mg/dL High 7 - 25 mg/dL [facility] Urea nitrogen/Creatinine [Mass ratio] 29 mg/mg [facility] GLUCOSE POCon 08-07-2024 Glucose [Mass/Vol] 185 mg/dL High 70 - 179 mg/dL [facility] Interpretation and review of laboratory results Abnormal [facility] POC Sample Type CAPBL [facility] Glucose [Mass/Vol] 106 mg/dL 70 - 179 mg/dL [facility] POC Sample Type CAPBL [facility] Glucose [Mass/Vol] 104 mg/dL 70 - 179 mg/dL [facility] POC Sample Type CAPBL [facility] MAGNESIUMon 08-07-2024 Interpretation and review of laboratory results Normal [facility] Magnesium [Mass/Vol] 1.8 mg/dL 1.6 - 2 .6 mg/dL [facility] No Panel Informationon 08-07 [facility] CBC,PLATELETSon 08-06-2024 Hematocrit (Bld) [Volume fraction] 43.1 % Normal 34.9-44.3 [facility] Comment on above: Performed By: #### X M #### [facility] (DEFAULT) [address] [address] Hemoglobin (Bld) [Mass/Vol] 13.7 g/dL Normal 11.4-15.2 [facility] Comment on above: Performed By: #### X M #### [facility] (DEFAULT) [address] [place] [address] MCV (RBC) [Entitic vol] 93.1 fL Normal 79.6-97.7 [facility] Comment on above: Performed By: #### X M #### [facility] (DEFAULT) [address] [place] [address] 53047 Mean Cell Hgb 29.6 pg Normal 25.9-33.9 [facility] Comment on above: Performed By: #### X M #### [facility] (DEFAULT) [address] [place] [address]45[address] Mean Cell Hgb Conc 31.8 g/dL Normal 31.4-35.9 [facility] Comment on above: Performed By: #### X M #### [facility] (DEFAULT) [address] [place] [address] Platelet mean volume (Bld) [Entitic vol] 11.1 fL Normal 8.5-12.2 [facility] Comment on above: Performed By: #### X M #### [facility] (DEFAULT) [address] [place] [address] Platelets (Bld) [#/Vol] 214 10*3/uL Normal 150-393 [facility] Comment on above: Performed By: #### X M #### [facility] (DEFAULT) [address] [place] [address] RBC (Bld) [#/Vol] 4.63 10*6/uL Normal 3.91-5.04 [facility] Comment on above: Performed By: #### X M #### [facility] (DEFAULT) [address] [place] [address] 26850 RBC Distribution 13.9 % Normal 10.8-14.9 [facility] Comment on above: Performed By: #### X M #### [facility] (DEFAULT) [address] [place] [address] WBC (Bld) [#/Vol] 11.30 10*3/uL High 3.99-11.19 [facility] Comment on above: Performed By: #### X M #### [facility] (DEFAULT) [address] [place] [address] Erythrocyte distribution width (RBC) [Ratio] 13.9 % 10.8 - 14.9 % [facility] Hematocrit (Bld) [Volume fraction] 44 % 34.9 - 44.3 % [facility] Hemoglobin (Bld) [Mass/Vol] 13.9 g/dL 11.4 - 15.2 g/dL [facility] Interpretation and review of laboratory results Abnormal [facility] MCH (RBC) [Entitic mass] 29.1 pg 25.9 - 33.9 pg [facility] MCHC (RBC) [Mass/Vol] 31.6 g/dL 31.4 - 35.9 g/dL [facility] MCV (RBC) [Entitic vol] 92.2 fL 79.6 - 97.7 fL [facility] Platelet mean volume (Bld) [Entitic vol] 10.7 fL 8.5 - 12.2 fL [facility] Platelets (Bld) [#/Vol] 216 10*3/uL 150 - 393 K/uL [facility] RBC (Bld) [#/Vol] 4.77 10*6/uL [facility] WBC (Bld) [#/Vol] 12.14 10*3/uL High 3.99 - 11.19 K/uL [facility] CHEM 7 (LYTES,BUN,CREA,GLUC) on 08-06-2024 Anion gap [Moles/Vol] 13 mmol/L Normal 7-17 [facility] Comment on above: Performed By: #### CAMERON PALACIOS ####[facility] (DEFAULT)[address] [place] [address] Chloride [Moles/Vol] 105 mmol/L Normal 98-108 [facility] Comment on above: Performed By: #### CAMERON PALACIOS ####[facility] (DEFAULT)[address] [place] [address] CO2 [Moles/Vol] 28 mmol/L Normal 21-31 [facility] Comment on above: Performed By: #### CAMERON PALACIOS ####[facility] (DEFAULT)[address] [place] [address] Creatinine [Mass/Vol] 1.19 mg/dL Normal 0.50-1.20 [facility] Comment on above: Performed By: #### HEYDI PALACIOS7 ####[facility] (DEFAULT)[address] [place] [address] GFR/1.73 sq M.predicted among non-blacks MDRD (S/P/Bld) [Vol rate/Area] 47 mL/min/{1.73_m2} Low >=60 [facility] Comment on above: Result Comment: Repo rted eGFR is based on the CKD-EPI 2020 equation using creatinine, age, and sex. Performed By: #### HEYDI PALACIOS7 ####[place] [facility] (DEFAULT)[address] [facility] [place] [address] Glucose [Mass/Vol] 90 mg/dL Normal Nonfastin -179 mg/dL; Fastin-99 [facility] Comment on above: Performed By: #### CAMERON PALACIOS ####[facility] (DEFAULT)[address] [facility] [place] [address] Osmolality [Osmolality] 304 mosm/kg Normal 278-305 [facility] Comment on above: Performed By: #### HEYDI PALACIOS7 ####[facility] (DEFAULT)[address] [facility] [place] [address] Potassium [Moles/Vol] 4.2 mmol/L Normal 3.5-5.0 [facility] Comment on above: Performed By: #### HEYDI PALACIOS7 ####[facility] (DEFAULT)[address] [place] [address] Sodium [Moles/Vol] 142 mmol/L Normal 135-145 [facility] Comment on above: Performed By: #### Jaiden NGUYEN CHM7 ####[facility] (DEFAULT)[address] [facility] [place] [address] Urea nitrogen [Mass/Vol] 34 mg/dL High 7-25 [facility] Comment on above: Performed By: #### Jaiden NGUYEN CHM7 ####[facility] (DEFAULT)[address] [place] [address] Urea nitrogen/Creatinine [Mass ratio] 29 mg/mg Normal [facility] Comment on above: Performed By: #### Jaiden NGUYEN CHM7 ####[facility] (DEFAULT)[address] [place] [address] Anion gap [Moles/Vol] 14 mmol/L 7 - 17 mmol/L [facility] Chloride [Moles/Vol] 107 mmol/L 98 - 10 8 mmol/L [facility] CO2 [Moles/Vol] 27 mmol/L 21 - 31 mmol/L [facility] Creatinine [Mass/Vol] 1.19 mg/dL 0.50 - 1.20 mg/dL [facility] eGFR, CKD-EPI, Female 47 Low - PINF [facility] Glucose [Mass/Vol] 88 mg/dL 70 - 179 mg/dL [facility] Interpretation and review of laboratory results Abnormal [facility] Osmolality Calc [Osmolality] 307 High [facility] Potassium [Moles/Vol] 3.9 mmol/L 3.5 - 5.0 mmol/L [facility] Sodium [Moles/Vol] 144 mmol/L 135 - 145 mmol/L [facility] Urea nitrogen [Mass/Vol] 34 mg/dL High 7 - 25 mg/dL [facility] Urea nitrogen/Creatinine [Mass ratio] 29 mg/mg [facility] GLUCOSE POCon 08-06-2024 Glucose [Mass/Vol] 166 mg/dL 70 - 179 mg/dL [facility] Glucose [Mass/Vol] 106 mg/dL 70 - 179 mg/dL [facility] Glucose [Mass/Vol] 100 mg/dL 70 - 179 mg/dL [facility] POC Sample Type VENO [facility] Glucose [Mass/Vol] 219 mg/dL High 70 - 179 mg/dL [facility] Interpretation and review of laboratory results Abnormal [facility] Glucose [Mass/Vol] 249 mg/dL High 70 - 179 mg/dL [facility] Glucose [Mass/Vol] 178 mg/dL 70 - 179 mg/dL [facility] Glucose [Mass/Vol] 194 mg/dL High 70 - 179 mg/dL [facility] Glucose [Mass/Vol] 93 mg/dL 70 - 179 mg/dL [facility] POC Sample Type VENO [facility] IONIZED CALCIUM, WHOLE BLOOD Ordered By: Zuleika Blunt on 08-06-2024 Calcium.ionized (Bld) [Moles/Vol] 4.72 mg/dL 4.60 - 5.30 mg/dL [facility] Interpretation and review of laboratory results Normal [facility] MAGNESIUMon 08-06-2024 Magnesium [Mass/Vol] 1.8 mg/dL Normal 1.6-2.6 [facility] Comment on above: Performed By: #### M [facility] ####[facility] (DEFAULT)[address] [place] [id number] Magnesium [Mass/Vol] 2.4 mg/dL 1.6 - 2 .6 mg/dL [facility] No Panel Informationon 08-06 POC Sample Type CAPBL [facility] Interpretation and review of laboratory results Abnormal [facility] POC Sample Type CAPBL [facility] Interpretation and review of laboratory results Normal [facility] PHOSPHATE, INORGANICon 08-06 Phosphate [Mass/Vol] 3.2 mg/dL 2.2 - 4 .6 mg/dL [facility] RF videography Hypopharynx a nd Esophagus Views W liquid and paste contrast PO during swallowingon 08-06-2024 RADIOLOGY RADIOLOGY [facility] Radiology Study observation (narrative) [facility] RF videography Hypopharynx a nd Esophagus Views W liquid and paste contrast PO during swallowingOrdered By: Gerry Resendez on 08-06-2024 [facility] Work Phone: SPEECH MODIFIED BARIUM SWALL OWon 08-06-2024 [facility] XR FLUORO MODIFIED BARIUM SW ALLOW WITH [...] for specific therapeutic recommendations, please see the chemical engineering technician report of the speech pathologist. Examination performed by ARCADIO Nicole, under the direct supervision of Gerry Resendez M.D., who was immediately available on site during the examination. I personally viewed and interpreted these images and I have reviewed and approved this report. Normal [facility] CBC,PLATELETSon 08-05-2024 Hematocrit (Bld) [Volume fraction] 44.0 % Normal 34.9-44.3 [facility] Comment on above: Performed By: #### B LDCULT #### [facility] (DEFAULT) [address] [place] [address] Hemoglobin (Bld) [Mass/Vol] 13.9 g/dL Normal 11.4-15.2 [facility] Comment on above: Performed By: #### B LDCULT #### [facility] (DEFAULT) [address] [place] [address] MCV (RBC) [Entitic vol] 92.2 fL Normal 79.6-97.7 [facility] Comment on above: Performed By: #### B LDCULT #### [facility] (DEFAULT) [address] [place] [address] Mean Cell Hgb 29.1 pg Normal 25.9-33.9 [facility] Comment on above: Performed By: #### B LDCULT #### [place] [facility] (DEFAULT) [address] [place] [address] Mean Cell Hgb Conc 31.6 g/dL Normal 31.4-35.9 [facility] Comment on above: Performed By: #### B LDCULT #### [facility] (DEFAULT) [address] [place] [address] 23942 Platelet mean volume (Bld) [Entitic vol] 10.7 fL Normal 8.5-12.2 [facility] Comment on above: Performed By: #### B LDCULT #### [facility] (DEFAULT) [address] [place] [address] Platelets (Bld) [#/Vol] 216 10*3/uL Normal 150-393 [facility] Comment on above: Performed By: #### B LDCULT #### [facility] (DEFAULT) [address] [place] [address] RBC (Bld) [#/Vol] 4.77 10*6/uL Normal 3.91-5.04 [facility] Comment on above: Performed By: #### B LDCULT #### [facility] (DEFAULT) [address] [place] [address] RBC Distribution 13.9 % Normal 10.8-14.9 [facility] Comment on above: Performed By: #### B LDCULT #### [facility] (DEFAULT) [address] [place] [address] WBC (Bld) [#/Vol] 12.14 10*3/uL High 3.99-11.19 [facility] Comment on above: Performed By: #### B LDCULT #### [facility] (DEFAULT) [address] [place] [address] Erythrocyte distribution width (RBC) [Ratio] 13.9 % 10.8 - 14.9 % [facility] Hematocrit (Bld) [Volume fraction] 39.6 % 34.9 - 44.3 % [facility] Hemoglobin (Bld) [Mass/Vol] 12.6 g/dL 11.4 - 15.2 g/dL [facility] Interpretation and review of laboratory results Normal [facility] MCH (RBC) [Entitic mass] 29.3 pg 25.9 - 33.9 pg [facility] MCHC (RBC) [Mass/Vol] 31.8 g/dL 31.4 - 35.9 g/dL [facility] MCV (RBC) [Entitic vol] 92.1 fL 79.6 - 97.7 fL [facility] [facility] mean volume (Bld) [Entitic vol] 10.7 fL 8.5 - 12.2 fL [facility] Platelets (Bld) [#/Vol] 198 10*3/uL 150 - 393 K/uL [facility] RBC (Bld) [#/Vol] 4.3 10*6/uL [facility] WBC (Bld) [#/Vol] 10.61 10*3/uL 3.99 - 11.19 K/uL [facility] Hematocrit (Bld) [Volume fraction] 39.6 % Normal 34.9-44.3 [facility] Comment on above: Performed By: #### H EMO ####[facility] (DEFAULT)[address] [place] [address] Hemoglobin (Bld) [Mass/Vol] 12.6 g/dL Normal 11.4-15.2 [facility] Comment on above: Performed By: #### H EMOGC ####[facility] (DEFAULT)[address] [place] [address] MCV (RBC) [Entitic vol] 92.1 fL Normal 79.6-97.7 [facility] Comment on above: Performed By: #### H EMOGC ####[facility] (DEFAULT)[address] [facility] [place] [address] Mean Cell Hgb 29.3 pg Normal 25.9-33.9 [facility] Comment on above: Performed By: #### H EMOGC ####[facility] (DEFAULT)[address] [facility] [place] [address] Mean Cell Hgb Conc 31.8 g/dL Normal 31.4-35.9 [facility] Comment on above: Performed By: #### H EMOGC ####[facility] (DEFAULT)[address] [place] [address] Platelet mean volume (Bld) [Entitic vol] 10.7 fL Normal 8.5-12.2 [facility] Comment on above: Performed By: #### H EMOGC ####[facility] (DEFAULT)[address] [facility] [place] [address] Platelets (Bld) [#/Vol] 198 10*3/uL Normal 150-393 [facility] Comment on above: Performed By: #### H EMOGC ####[facility] (DEFAULT)[address] [place] [address] RBC (Bld) [#/Vol] 4.30 10*6/uL Normal 3.91-5.04 [facility] Comment on above: Performed By: #### H EMOGC ####[facility] (DEFAULT)[address] [place] [address] RBC Distribution 13.9 % Normal 10.8-14.9 [facility] Comment on above: Performed By: #### H [facility] ####[facility] (DEFAULT)[address] [place] [address] WBC (Bld) [#/Vol] 10.61 10*3/uL Normal 3.99-11.19 [facility] Comment on above: Performed By: #### H [facility] ####[facility] (DEFAULT)[address] [place] [address] CHEM 7 (LYTES,BUN,CREA,GLUC) on 08-05-2024 Anion gap [Moles/Vol] 14 mmol/L Normal 7-17 [facility] Comment on above: Performed By: #### S URGP #### [facility] (DEFAULT) [address] [place] [address] Chloride [Moles/Vol] 107 mmol/L Normal 98-108 [facility] Comment on above: Performed By: #### S URGP #### [facility] (DEFAULT) [address] [place] [address] CO2 [Moles/Vol] 27 mmol/L Normal 21-31 [facility] Comment on above: Performed By: #### S URGP #### [facility] (DEFAULT) [address] [place] [address] Creatinine [Mass/Vol] 1.19 mg/dL Normal 0.50-1.20 [facility] Comment on above: Performed By: #### S URGP #### [facility] (DEFAULT) [address] [place] [address] GFR/1.73 sq M.predicted among non-blacks MDRD (S/P/Bld) [Vol rate/Area] 47 mL/min/{1.73_m2} Low >=60 [facility] Comment on above: Result Comment: Repo rted eGFR is based on the CKD-EPI 2020 equation using creatinine, age, and sex. Performed By: #### S URGP #### [facility] (DEFAULT) [address] [place] [address] Glucose [Mass/Vol] 88 mg/dL Normal Nonfastin -179 mg/dL; Fastin-99 [facility] Comment on above: Performed By: #### S URGP #### [facility] (DEFAULT) [address] [place] [address] Osmolality [Osmolality] 307 mosm/kg High 278-305 [facility] Comment on above: Performed By: #### S URGP #### [facility] (DEFAULT) [address] [place] [address] Potassium [Moles/Vol] 3.9 mmol/L Normal 3.5-5.0 [facility] Comment on above: Performed By: #### S URGP #### [facility] (DEFAULT) [address] [place] [address]347 Sodium [Moles/Vol] 144 mmol/L Normal 135-145 [facility] Comment on above: Performed By: #### S URGP #### [facility] (DEFAULT) [address] [place] [address] 57727 Urea nitrogen [Mass/Vol] 34 mg/dL High 7-25 [facility] Comment on above: Performed By: #### S URGP #### [facility] (DEFAULT) [address] [place] [address] 88654 Urea nitrogen/Creatinine [Mass ratio] 29 mg/mg Normal [facility] Comment on above: Performed By: #### S URGP #### [facility] (DEFAULT) [address] [place] [address] 27089 Anion gap [Moles/Vol] 14 mmol/L 7 - 17 mmol/L [facility] Chloride [Moles/Vol] 108 mmol/L 98 - 10 8 mmol/L [facility] CO2 [Moles/Vol] 25 mmol/L 21 - 31 mmol/L [facility] Creatinine [Mass/Vol] 1.45 mg/dL High 0.50 - 1.20 mg/dL [facility] eGFR, CKD-EPI, Female 37 Low - PINF [facility] Glucose [Mass/Vol] 242 mg/dL High 70 - 179 mg/dL [facility] Interpretation and review of laboratory results Abnormal [facility] Osmolality Calc [Osmolality] 315 High [facility] Potassium [Moles/Vol] 3.8 mmol/L 3.5 - 5.0 mmol/L [facility] Sodium [Moles/Vol] 143 mmol/L 135 - 145 mmol/L [facility] Urea nitrogen [Mass/Vol] 35 mg/dL High 7 - 25 mg/dL [facility] Urea nitrogen/Creatinine [Mass ratio] 24 mg/mg [facility] Anion gap [Moles/Vol] 14 mmol/L Normal 7-17 [facility] Comment on above: Performed By: #### X M #### [facility] (DEFAULT) [address] [place] [address]328 Chloride [Moles/Vol] 108 mmol/L Normal 98-108 [facility] Comment on above: Performed By: #### X M #### [facility] (DEFAULT) [address] [place] [address] 48292 CO2 [Moles/Vol] 25 mmol/L Normal 21-31 [facility] Comment on above: Performed By: #### X M #### [facility] (DEFAULT) [address] [place] [address] Creatinine [Mass/Vol] 1.45 mg/dL High 0.50-1.20 [facility] Comment on above: Performed By: #### X M #### [facility] (DEFAULT) [address] [place] [address] 60761 GFR/1.73 sq M.predicted among non-blacks MDRD (S/P/Bld) [Vol rate/Area] 37 mL/min/{1.73_m2} Low >=60 [facility] Comment on above: Result Comment: Repo rted eGFR is based on the CKD-EPI 2020 equation using creatinine, age, and sex. Performed By: #### X M #### [facility] (DEFAULT) [address] [place] [address] Glucose [Mass/Vol] 242 mg/dL High Nonfastin -179 mg/dL; Fastin-99 [facility] Comment on above: Performed By: #### X M #### [facility] (DEFAULT) [address] [place] [address] 51989 Osmolality [Osmolality] 315 mosm/kg High 278-305 [facility] Comment on above: Performed By: #### X M #### [facility] (DEFAULT) [address] [place] [address] 36170 Potassium [Moles/Vol] 3.8 mmol/L Normal 3.5-5.0 [facility] Comment on above: Performed By: #### X M #### [facility] (DEFAULT) [address] [place] [address] 67801 Sodium [Moles/Vol] 143 mmol/L Normal 135-145 [facility] Comment on above: Performed By: #### X M #### [facility] (DEFAULT) [address] [place] [address] 29594 Urea nitrogen [Mass/Vol] 35 mg/dL High 7-25 [facility] Comment on above: Performed By: #### X M #### [facility] (DEFAULT) [address] [place] [address] 59301 Urea nitrogen/Creatinine [Mass ratio] 24 mg/mg Normal [facility] Comment on above: Performed By: #### X M #### [facility] (DEFAULT) [address] [place] [address] 17299 Cardiac echo study Procedure Ordered By: Ezequiel Figueroa on 08-05-2024 Ao ASC index 1.56 cm/m2 [facility] Work Phone: [phone] Ao peak fidel 1.23 m/s [facility] Work Phone: [phone] Ao SOV index 1.56 cm/m2 [facility] Work Phone: [phone] Ao STJ index 1.36 cm/m2 [facility] Work Phone: [phone] Ao VTI 24.81 cm [facility] Work Phone: [phone] [facility]: [phone] AV LVOT peak gradient 4 mmHg [facility] Work Phone: [phone] AV mean gradient 4 mmHg [facility] Work Phone: [phone] AV peak gradient 6 mmHG [facility] Work Phone: [phone] AV valve area 2.72 cm2 [facility] Work Phone: [phone] AV Velocity Ratio 0.8 [facility] Work Phone: [phone] MARKUS (continuity Vmax) 2.55 cm2 [facility] Work Phone: [phone] MARKUS (continuity VTI) 2.72 cm2 [facility] Work Phone: [phone] MARKUS index (continuity Vmax) 1.34 m/s [facility] Work Phone: [phone] MARKUS index (continuity VTI) 1.43 cm2/m2 [facility] Work Phone: [phone] Avg e' pk fidel 0.09 m/s [facility] Work Phone: [phone] Body surface area Derived from formula 1.9 m2 [facility] Work Phone: [phone] BP EF 55 % [facility] Work Phone: [phone] DI (Vmax) 0.8 [facility] Work Phone: [phone] DI (VTI) 0.86 m/2 [facility] Work Phone: [phone] e' lateral pk fidel 0.0845 m[facility]s [facility]: [phone] e' lateral pk fidel 0.08 m/s [facility] Work Phone: [phone] e' septal pk fidel 0.0953 m/s [facility] Work Phone: [phone] e' septal pk fidel 0.1 [facility] [phone] EF SP 2CH 56 [facility] Work Phone: [phone] EF SP 4CH 51 [facility] Work Phone: [phone] EST RAP 3 mmHg [facility] Work Phone: [phone] EST RVSP 29 mmHg [facility] Work Phone: [phone] FS 31 % [facility] Work Phone: [phone] IVC ostium 1.64 cm [facility] Work Phone: [phone] IVS 1.14 cm [facility] Work Phone: [phone] LA area 4CH 29.07 cm2 [facility] Work Phone: [phone] LA ESV BP (MOD) 86 [facility]: [phone] LA ESV BP (MOD) index 45 mL/m2 [facility] Work Phone: [phone] LA ESV SP 2CH (MOD) 81 mL [facility] Work Phone: [phone] LA ESV SP 4CH (MOD) 93 mL [facility] Work Phone: [phone] LV EDV BP 88 mL [facility] Work Phone: LV EDV SP 2CH 85 mL [facility] Work Phone: [phone] LV EDV SP 4CH 86 mL [facility] Work Phone: [phone] LV ESV BP 40 mL [facility] Work Phone: [phone] LV ESV SP 2CH 37 mL [facility] Work Phone: [phone] LV ESV SP 4CH 42 mL [facility] Work Phone: [phone] LV mass 146.48 g [facility] Work Phone: [phone] LV Mass Index 77.1 g/m2 [facility] Work Phone: [phone] LV RWT 0.56 [facility] Work Phone: [phone] LV stroke volume BP (ml) 48 mL [facility] Work Phone: [phone] LV stroke volume index BP 25.26 mL/m2 [facility] Work Phone: [phone] LVIDD 3.93 cm [facility] Work Phone: [phone] LVIDS 2.7 cm [facility] Work Phone: [phone] LVOT area 3.17 cm2 [facility] Work Phone: [phone] LVOT diameter 2.01 cm [facility] Work Phone: [phone] LVOT peak fidel 0.99 m/s [facility] Work Phone: [phone] LVOT peak VTI 21.3 cm [facility] Work Phone: [phone] LVOT stroke volume 68 cm3 [facility] Work Phone: [phone] LVOT stroke volume index 35.55 ml/m2 [facility] Work Phone: [phone] MV mean gradient 3 [facility]: [phone] MV peak gradient 6 [facility] Work Phone: [phone] MV valve area by continuity eq 2.61 cm2 [facility] Work Phone: [phone] MV VTI 25.92 cm [facility] Work Phone: [phone] MVA (continuity VTI) 2.6 cm [facility] Work Phone: [phone] [facility] AV VTI RATIO PRE STRESS 0.86 [facility] Work Phone: [phone] OSU ECHO LV BIPLANE SYSTOLIC VOLUME INDEX 21.05 mL/m2 [facility] Work Phone: [phone] [facility] ECHO LV BP DIASTOLIC VOLUME INDEX 46.32 mL/m2 [facility] Work Phone: [phone] PV mean gradient 3 mmHg [facility] Work Phone: [phone] PV peak gradient 6 mmHg [facility] Work Phone: [phone] PV PK FIDEL 1.23 m/s [facility] Work Phone: [phone] PW 1.11 cm [facility] Work Phone: [phone] RA area 4CH (MOD) 22.74 cm2 [facility] Work Phone: [phone] RA vol index 4CH (MOD) 36.32 mL/m2 O [facility] Work Phone: [phone] Right atrium volume 4 chamber method of disks 69 mL [facility] Work Phone: [phone] RV Area diastolic 17.5 cm2 [facility] Work Phone: [phone] RV Area systolic 11.9 cm2 [facility] Work Phone: [phone] RV basal diam 4.56 cm [facility] Work Phone: [phone] RV Fractional area change 32 % [facility] Work Phone: RV long diam 6.91 cm [facility] Work Phone: RV mid diam 2.91 cm [facility] Work Phone: [phone] RV S' 12.81 cm/s [facility] Work Phone: RVOT peak gradient 5 mmHg [facility] Work Phone: [phone] RVOT peak fidel 1.07 m/s [facility] Work Phone: RVOT peak VTI 20.1 cm [facility] Work Phone: Sinus 2.97 cm [facility] Work Phone: STJ 2.58 cm [facility] Work Phone: Stroke Volume 68 cm/mL [facility] Work Phone: Stroke volume index 36 [facility] Work Phone: TAPSE 2.08 cm [facility] Work Phone: TR pk grad 26 mmHg [facility] Work Phone: TR pk fidel 2.53 m/s [facility] Work Phone: [facility] Work Phone: Cardiac echo study Procedure on 08-05-2024 [facility] Radiology Study observation (narrative) [facility] ECHOCARDIOGRAMon [...] from the original result were not included. [facility] Facility [facility] Patient Information Patient Name Lindsay Acuna [...] Role Read Date Ezequiel Figueroa DO Echo [place] 08/05/2024 Left Heart Measurements LV - Systole [...] long di (more content not included)... Normal [facility] GLUCOSE POCon 08-05-2024 Glucose [Mass/Vol] 228 mg/dL High 70 - 179 mg/dL [facility] Interpretation and review of laboratory results Abnormal [facility] POC Sample Type CAPBL [facility] IONIZED CALCIUM, WHOLE BLOOD on 08-05-2024 ICA 4.72 mg/dL Normal 4.60-5.30 [facility] Comment on above: Performed By: #### S URGP #### [facility] (DEFAULT) [address] [address] ICA 4.69 mg/dL Normal 4.60-5.30 [facility] Comment on above: Performed By: #### S URGP #### [facility] (DEFAULT) [address] [address] IONIZED CALCIUM, WHOLE BLOOD Ordered By: Jairo Layton on 08-05-2024 Calcium.ionized (Bld) [Moles/Vol] 4.69 mg/dL 4.60 - 5.30 mg/dL [facility] Interpretation and review of laboratory results Normal [facility] MAGNESIUMon 08-05-2024 Magnesium [Mass/Vol] 2.4 mg/dL Normal 1.6-2.6 [facility] Comment on above: Performed By: #### S URGP #### [facility] (DEFAULT) [address] [place] [address]35 Magnesium [Mass/Vol] 1.8 mg/dL 1.6 - 2 .6 mg/dL [facility] Magnesium [Mass/Vol] 1.8 mg/dL Normal 1.6-2.6 [facility] Comment on above: Performed By: #### X M #### [facility] (DEFAULT) [address] [address] No Panel Informationon 08-05 Interpretation and review of laboratory results Normal [facility] PHOSPHATE, INORGANICon 08-05 Phosphorous 3.2 mg/dL Normal 2.2-4.6 [facility] Comment on above: Performed By: #### S URGP #### [facility] (DEFAULT) [address] [place] [address] Phosphate [Mass/Vol] 2.7 mg/dL 2.2 - 4 .6 mg/dL [facility] Phosphorous 2.7 mg/dL Normal 2.2-4.6 [facility] Comment on above: Performed By: #### X M #### [facility] (DEFAULT) [address] [place] [address] [facility] FA[facility] AGOrde red By: Madhavi Mcelroy on 08-05-2024 Interpretation and review of laboratory results Abnormal [facility] vWf Ag actual/normal IA (PPP) [Relative mass conc] 230 % High 50 - 180 % [facility] CBC,PLATELETSon 08-04-2024 Erythrocyte distribution width (RBC) [Ratio] 13.7 % 10.8 - 14.9 % [facility] Hematocrit (Bld) [Volume fraction] 40.8 % 34.9 - 44.3 % [facility] Hemoglobin (Bld) [Mass/Vol] 12.7 g/dL 11.4 - 15.2 g/dL [facility] Interpretation and review of laboratory results Abnormal [facility] MCH (RBC) [Entitic mass] 28.7 pg 25.9 - 33.9 pg [facility] MCHC (RBC) [Mass/Vol] 31.1 g/dL Low 31.4 - 35.9 g/dL [facility] MCV (RBC) [Entitic vol] 92.1 fL 79.6 - 97.7 fL [facility] Platelet mean volume (Bld) [Entitic vol] 10.8 fL 8.5 - 12.2 fL [facility] Platelets (Bld) [#/Vol] 228 10*3/uL 150 - 393 K/uL [facility] RBC (Bld) [#/Vol] 4.43 10*6/uL [facility] WBC (Bld) [#/Vol] 11.41 10*3/uL High 3.99 - 11.19 K/uL [facility] Hematocrit (Bld) [Volume fraction] 40.8 % Normal 34.9-44.3 [facility] Comment on above: Performed By: #### H EMOGC #### [facility] (DEFAULT) [address] [address] Hemoglobin (Bld) [Mass/Vol] 12.7 g/dL Normal 11.4-15.2 [facility] Comment on above: Performed By: #### H EMOGC #### [facility] (DEFAULT) [address] [address] MCV (RBC) [Entitic vol] 92.1 fL Normal 79.6-97.7 [facility] Comment on above: Performed By: #### H EMOGC #### [facility] (DEFAULT) [address] [address] Mean Cell Hgb 28.7 pg Normal 25.9-33.9 [facility] Comment on above: Performed By: #### H EMOGC #### [facility] (DEFAULT) [address] [address] Mean Cell Hgb Conc 31.1 g/dL Low 31.4-35.9 [facility] Comment on above: Performed By: #### H EMOGC #### [facility] (DEFAULT) [address] [address] Platelet mean volume (Bld) [Entitic vol] 10.8 fL Normal 8.5-12.2 [facility] Comment on above: Performed By: #### H EMOGC #### [facility] (DEFAULT) [address] [address] Platelets (Bld) [#/Vol] 228 10*3/uL Normal 150-393 [facility] Comment on above: Performed By: #### H EMOGC #### [facility] (DEFAULT) [address] [address] RBC (Bld) [#/Vol] 4.43 10*6/uL Normal 3.91-5.04 [facility] Comment on above: Performed By: #### H [facility] #### [facility] (DEFAULT) [address] [place] [address] RBC Distribution 13.7 % Normal 10.8-14.9 [facility] Comment on above: Performed By: #### H [facility] #### [facility] (DEFAULT) [address] [place] [address] WBC (Bld) [#/Vol] 11.41 10*3/uL High 3.99-11.19 [facility] Comment on above: Performed By: #### H [facility] #### [facility] (DEFAULT) [address] [place] [address] CHEM 7 (LYTES,BUN,CREA,GLUC) Ordered By: Lizette Canseco on 08-04-2024 Anion gap [Moles/Vol] 16 mmol/L 7 - 17 mmol/L [facility] Chloride [Moles/Vol] 109 mmol/L High 98 - 10 8 mmol/L [facility] CO2 [Moles/Vol] 24 mmol/L 21 - 31 mmol/L [facility] Creatinine [Mass/Vol] 1.47 mg/dL High 0.50 - 1.20 mg/dL [facility] eGFR, CKD-EPI, Female 36 Low - PINF [facility] Glucose [Mass/Vol] 181 mg/dL High 70 - 179 mg/dL [facility] Interpretation and review of laboratory results Abnormal [facility] Osmolality Calc [Osmolality] 312 High [facility] Potassium [Moles/Vol] 4 mmol/L 3.5 - 5.0 mmol/L [facility] Sodium [Moles/Vol] 145 mmol/L 135 - 145 mmol/L [facility] Urea nitrogen [Mass/Vol] 26 mg/dL High 7 - 25 mg/dL [facility] Urea nitrogen/Creatinine [Mass ratio] 18 mg/mg [facility] CHEM 7 (LYTES,BUN,CREA,GLUC) on 08-04-2024 Anion gap [Moles/Vol] 16 mmol/L Normal 7-17 [facility] Comment on above: Performed By: #### S URGP #### [facility] (DEFAULT) [address] [place] [address] Chloride [Moles/Vol] 109 mmol/L High 98-108 [facility] Comment on above: Performed By: #### S URGP #### [facility] (DEFAULT) [address] [place] [address]00 CO2 [Moles/Vol] 24 mmol/L Normal 21-31 [facility] Comment on above: Performed By: #### S URGP #### [facility] (DEFAULT) [address] [place] [address]87 Creatinine [Mass/Vol] 1.47 mg/dL High 0.50-1.20 [facility] Comment on above: Performed By: #### S URGP #### [facility] (DEFAULT) [address] [place] [address] 00963 GFR/1.73 sq M.predicted among non-blacks MDRD (S/P/Bld) [Vol rate/Area] 36 mL/min/{1.73_m2} Low >=60 [facility] Comment on above: Result Comment: Repo rted eGFR is based on the CKD-EPI 2020 equation using creatinine, age, and sex. Performed By: #### S URGP #### [facility] (DEFAULT) [address] [place] [address] Glucose [Mass/Vol] 181 mg/dL High Nonfastin -179 mg/dL; Fastin-99 [facility] Comment on above: Performed By: #### S URGP #### [facility] (DEFAULT) [address] [place] [address] Osmolality [Osmolality] 312 mosm/kg High 278-305 [facility] Comment on above: Performed By: #### S URGP #### [facility] (DEFAULT) [address] [place] [address] Potassium [Moles/Vol] 4.0 mmol/L Normal 3.5-5.0 [facility] Comment on above: Performed By: #### S URGP #### [facility] (DEFAULT) [address] [place] [address] Sodium [Moles/Vol] 145 mmol/L Normal 135-145 [facility] Comment on above: Performed By: #### S URGP #### [facility] (DEFAULT) [address] [place] [address] Urea nitrogen [Mass/Vol] 26 mg/dL High 7-25 [facility] Comment on above: Performed By: #### S URGP #### [facility] (DEFAULT) [address] [place] [address] Urea nitrogen/Creatinine [Mass ratio] 18 mg/mg Normal [facility] Comment on above: Performed By: #### S URGP #### [facility] (DEFAULT) [address] [place] [address] HEAD WITHOUT CONTRASTon 0 08-04-2024 CT [...] sinuses are clear. IMPRESSION: Stable exam. Normal [facility] CT Head WO contraston 2024 RADIOLOGY RADIOLOGY [facility] CT Head WO contrastOrdered B y: Chirag Mendenhall on 08-04-2024 [facility] Work Phone: GLUCOSE POCon 08-04-2024 Glucose [Mass/Vol] 227 mg/dL High 70 - 179 mg/dL [facility] Interpretation and review of laboratory results Abnormal [facility] POC Sample Type [facility] Glucose [Mass/Vol] 235 mg/dL High 70 - 179 mg/dL [facility] Interpretation and review of laboratory results Abnormal [facility] POC Sample Type [facility] Glucose [Mass/Vol] 215 mg/dL High 70 - 179 mg/dL [facility] Interpretation and review of laboratory results Abnormal [facility] POC Sample Type CAPBL [facility] Glucose [Mass/Vol] 178 mg/dL 70 - 179 mg/dL [facility] Glucose [Mass/Vol] 157 mg/dL 70 - 179 mg/dL [facility] Glucose [Mass/Vol] 271 mg/dL High 70 - 179 mg/dL [facility] Glucose [Mass/Vol] 267 mg/dL High 70 - 179 mg/dL [facility] Glucose [Mass/Vol] 246 mg/dL High 70 - 179 mg/dL [facility] IONIZED CALCIUM, WHOLE BLOOD Ordered By: Laura Rodriguez on 08-04-2024 Calcium.ionized (Bld) [Moles/Vol] 4.8 mg/dL 4.60 - 5.30 mg/dL [facility] Interpretation and review of laboratory results Normal [facility] IONIZED CALCIUM, WHOLE BLOOD on 08-04-2024 ICA 4.80 mg/dL Normal 4.60-5.30 [facility] Comment on above: Performed By: #### T YPEC #### [facility] (DEFAULT) [address] [place] [address] MAGNESIUMon 08-04-2024 Magnesium [Mass/Vol] 1.9 mg/dL 1.6 - 2 .6 mg/dL [facility] Magnesium [Mass/Vol] 1.9 mg/dL Normal 1.6-2.6 [facility] Comment on above: Performed By: #### X M #### [facility] (DEFAULT) [address] [place] [address] No Panel Informationon 08-04 POC Sample Type CAPBL [facility] Interpretation and review of laboratory results Abnormal [facility] Interpretation and review of laboratory results Normal [facility] PHOSPHATE, INORGANICon 08-04 Phosphate [Mass/Vol] 2.8 mg/dL 2.2 - 4 .6 mg/dL [facility] Phosphorous 2.8 mg/dL Normal 2.2-4.6 [facility] Comment on above: Performed By: #### X M #### [facility] (DEFAULT) [address] [place] [address] SODIUMon 08-04-2024 Interpretation and review of laboratory results Normal [facility] Sodium [Moles/Vol] 142 mmol/L 135 - 145 mmol/L [facility] Sodium [Moles/Vol] 142 mmol/L Normal 135-145 [facility] Comment on above: Order Comment: While on 3% Hypertonic Saline. Performed By: #### S URGP #### [facility] (DEFAULT) [address] [place] [address] Interpretation and review of laboratory results Normal [facility] Sodium [Moles/Vol] 141 mmol/L 135 - 145 mmol/L [facility] Sodium [Moles/Vol] 141 mmol/L Normal 135-145 [facility] Comment on above: Order Comment: 2 Bot tles (1 Set - consists of 1 Aerobic bottle and 1 Anaerobic bottle) - 1st Peripheral Draw For vacutainer method draw: Fill aerobic bottle first, then anaerobic Results may be compromised due to HIGH VOLUME of the BACT\ALERT bottle EXCEEDING 10mLs, which can be associated with increased contamination. The optimal blood volume is 8-10mLs per aerobic/anaerobic blood culture bottle. Performed By: #### B LDCULT #### [facility] (DEFAULT) [address] [address] Interpretation and review of laboratory results Normal [facility] Sodium [Moles/Vol] 143 mmol/L 135 - 145 mmol/L [facility] Sodium [Moles/Vol] 143 mmol/L Normal 135-145 [facility] Comment on above: Order Comment: While on 3% Hypertonic Saline. Performed By: #### H EMO #### [facility] (DEFAULT) [address] [address] ABORH TYPE RECONFIRMATIONon 08-03-2024 ABO/RH(D) TYPE Negative [facility] ABO/RH(D) TYPE Negative Normal [facility] Comment on above: Performed By: #### T YPEC #### [facility] (DEFAULT) [address] [address] CBC,PLATELETSon 08-03-2024 Erythrocyte distribution width (RBC) [Ratio] 13.2 % 10.8 - 14.9 % [facility] Hematocrit (Bld) [Volume fraction] 42.8 % 34.9 - 44.3 % [facility] Hemoglobin (Bld) [Mass/Vol] 13.5 g/dL 11.4 - 15.2 g/dL [facility] Interpretation and review of laboratory results Normal [facility] MCH (RBC) [Entitic mass] 29.2 pg 25.9 - 33.9 pg [facility] MCHC (RBC) [Mass/Vol] 31.5 g/dL 31.4 - 35.9 g/dL [facility] MCV (RBC) [Entitic vol] 92.4 fL 79.6 - 97.7 fL [facility] Platelet mean volume (Bld) [Entitic vol] 11.2 fL 8.5 - 12.2 fL [facility] Platelets (Bld) [#/Vol] 227 10*3/uL 150 - 393 K/uL [facility] RBC (Bld) [#/Vol] 4.63 10*6/uL [facility] WBC (Bld) [#/Vol] 8.43 10*3/uL 3.99 - 11.19 K/uL [facility] Hematocrit (Bld) [Volume fraction] 42.8 % Normal 34.9-44.3 [facility] Comment on above: Performed By: #### X M #### [facility] (DEFAULT) [address] [address] Hemoglobin (Bld) [Mass/Vol] 13.5 g/dL Normal 11.4-15.2 [facility] Comment on above: Performed By: #### X M #### [facility] (DEFAULT) [address] [place] [address] MCV (RBC) [Entitic vol] 92.4 fL Normal 79.6-97.7 [facility] Comment on above: Performed By: #### X M #### [facility] (DEFAULT) [address] [address] Mean Cell Hgb 29.2 pg Normal 25.9-33.9 [facility] Comment on above: Performed By: #### X M #### [facility] (DEFAULT) [address] [address] Mean Cell Hgb Conc 31.5 g/dL Normal 31.4-35.9 [facility] Comment on above: Performed By: #### X M #### [facility] (DEFAULT) [address] [place] [address] Platelet mean volume (Bld) [Entitic vol] 11.2 fL Normal 8.5-12.2 [facility] Comment on above: Performed By: #### X M #### [facility] (DEFAULT) [address] [place] [address] Platelets (Bld) [#/Vol] 227 10*3/uL Normal 150-393 [facility] Comment on above: Performed By: #### X M #### [facility] (DEFAULT) [address] [place] [address] RBC (Bld) [#/Vol] 4.63 10*6/uL Normal 3.91-5.04 [facility] Comment on above: Performed By: #### X M #### [facility] (DEFAULT) [address] [place] [address] RBC Distribution 13.2 % Normal 10.8-14.9 [facility] Comment on above: Performed By: #### X M #### [facility] (DEFAULT) [address] [place] [address] WBC (Bld) [#/Vol] 8.43 10*3/uL Normal 3.99-11.19 [facility] Comment on above: Performed By: #### X M #### [facility] (DEFAULT) [address] [place] [address] CHEM 7 (LYTES,BUN,CREA,GLUC) on 08-03-2024 Anion gap [Moles/Vol] 16 mmol/L 7 - 17 mmol/L [facility] Chloride [Moles/Vol] 103 mmol/L 98 - 10 8 mmol/L [facility] CO2 [Moles/Vol] 23 mmol/L 21 - 31 mmol/L [facility] Creatinine [Mass/Vol] 1.35 mg/dL High 0.50 - 1.20 mg/dL [facility] eGFR, CKD-EPI, Female 40 Low - PINF [facility] Glucose [Mass/Vol] 151 mg/dL 70 - 179 mg/dL [facility] Interpretation and review of laboratory results Abnormal [facility] Osmolality Calc [Osmolality] 295 [facility] Potassium [Moles/Vol] 4.3 mmol/L 3.5 - 5.0 mmol/L [facility] Sodium [Moles/Vol] 138 mmol/L 135 - 145 mmol/L [facility] Urea nitrogen [Mass/Vol] 18 mg/dL 7 - 25 mg/dL [facility] Urea nitrogen/Creatinine [Mass ratio] 13 mg/mg [facility] Anion gap [Moles/Vol] 16 mmol/L Normal 7-17 [facility] Comment on above: Performed By: #### S URGP #### [facility] (DEFAULT) [address] [place] [address] Chloride [Moles/Vol] 103 mmol/L Normal 98-108 [facility] Comment on above: Performed By: #### S URGP #### [facility] (DEFAULT) [address] [place] [address] CO2 [Moles/Vol] 23 mmol/L Normal 21-31 [facility] Comment on above: Performed By: #### S URGP #### [facility] (DEFAULT) [address] [place] [address] Creatinine [Mass/Vol] 1.35 mg/dL High 0.50-1.20 [facility] Comment on above: Performed By: #### S URGP #### [facility] (DEFAULT) [address] [place] [address] GFR/1.73 sq M.predicted among non-blacks MDRD (S/P/Bld) [Vol rate/Area] 40 mL/min/{1.73_m2} Low >=60 [facility] Comment on above: Result Comment: Repo rted eGFR is based on the CKD-EPI 2020 equation using creatinine, age, and sex. Performed By: #### S URGP #### [facility] (DEFAULT) [address] [place] [address] Glucose [Mass/Vol] 151 mg/dL Normal Nonfastin -179 mg/dL; Fastin-99 [facility] Comment on above: Performed By: #### S URGP #### [facility] (DEFAULT) [address] [place] [address] Osmolality [Osmolality] 295 mosm/kg Normal 278-305 [facility] Comment on above: Performed By: #### S URGP #### [facility] (DEFAULT) [address] [place] [address] Potassium [Moles/Vol] 4.3 mmol/L Normal 3.5-5.0 [facility] Comment on above: Result Comment: Spec imen slightly hemolyzed. Potassium results may be falsey elevated by more than 0.5 mmol/L. Consider recollection. Performed By: #### S URGP #### [facility] (DEFAULT) [address] [place] [address] Sodium [Moles/Vol] 138 mmol/L Normal 135-145 [facility] Comment on above: Performed By: #### S URGP #### [facility] (DEFAULT) [address] [place] [address] Urea nitrogen [Mass/Vol] 18 mg/dL Normal 7-25 [facility] Comment on above: Performed By: #### S URGP #### [facility] (DEFAULT) [address] [place] [address] Urea nitrogen/Creatinine [Mass ratio] 13 mg/mg Normal [facility] Comment on above: Performed By: #### S URGP #### [facility] (DEFAULT) [address] [place] [address] CHEST WITH CONTRAST VASCU LAR TRAUMAon [...] have reviewed and approved this report. Normal [facility] CT Cervical spine WO contras ton 08-03-2024 [address]IOLOGY [address] [facility] CT Cervical spine WO contras tOrdered By: Alissa Chun on 08-03-2024 [facility] Work Phone: CT Chest W contrast Seth RADIOLOGY RADIOLOGY [facility] CT Chest W contrast IVOrdere d By: Kayla Newell on 08-03-2024 [facility] Work Phone: CT HEAD WITHOUT CONTRASTon [...] since the MRI from earlier today Normal [facility] CT Head WO contraston 2024 Radiology Study observation (narrative) [facility] RADIOLOGY RADIOLOGY [facility] Radiology Study observation (narrative) [facility] CT ORBITS WITHOUT CONTRASTon 08-03-2024 CT [...] basal ganglia hyperdensity concerning for hemorrhage. Normal [facility] CT Orbit WO contraston 08-03 RADIOLOGY RADIOLOGY [facility] CT SPINE CERVICAL WITHOUT CO [...] No evidence of acute fractures identified Normal [facility] EXTRA MICROon 08-03-2024 [facility] GLUCOSE POCon 08-03-2024 Glucose [Mass/Vol] 161 mg/dL 70 - 179 mg/dL [facility] POC Sample Type CAPBL [facility] IONIZED CALCIUM, WHOLE BLOOD Ordered By: Alejandra Ness on 08-03-2024 Calcium.ionized (Bld) [Moles/Vol] 4.24 mg/dL Low 4.60 - 5.30 mg/dL [facility] Interpretation and review of laboratory results Abnormal [facility] IONIZED CALCIUM, WHOLE BLOOD on 08-03-2024 ICA 4.24 mg/dL Low 4.60-5.30 [facility] Comment on above: Performed By: #### H [facility] #### [facility] (DEFAULT) [address] [place] [address] MAGNESIUMon 08-03-2024 Magnesium [Mass/Vol] 2.1 mg/dL 1.6 - 2 .6 mg/dL [facility] Magnesium [Mass/Vol] 2.1 mg/dL Normal 1.6-2.6 [facility] Comment on above: Performed By: #### S URGP #### [facility] (DEFAULT) [address] [place] [address] MR Brain WO contraston 08-03 RADIOLOGY RADIOLOGY [facility] Radiology Study observation (narrative) [facility] MR Cervical spine WO contras ton 08-03-2024 RADIOLOGY RADIOLOGY [facility] Radiology Study observation (narrative) [facility] MR Cervical spine WO contras tOrdered By: Kuldeep Tavares on 08-03-2024 [facility] Work Phone: MRI BRAIN WITHOUT CONTRASTon [...] tiny 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 Normal [facility] MRI SPINE CERVICAL WITHOUT C ONTRASTon [...] have reviewed and approved this report. Normal [facility] NT-PRO B-TYPE NATRIURETIC PE PTIDEon 08-03-2024 Interpretation and review of laboratory results Abnormal [facility] Natriuretic peptide.B prohormone N-Terminal [place] [Mass/Vol] 1115 pg/mL High NINF - 540 pg/mL [facility] No Panel Informationon 08-03 RADIOLOGY RADIOLOGY [facility] Interpretation and review of laboratory results Normal [facility] No Panel InformationOrdered By: Richard Sánchez on 08-03-2024 [facility] Work Phone: PHOSPHATE, INORGANICon 08-03 Phosphate [Mass/Vol] 3.5 mg/dL 2.2 - 4 .6 mg/dL [facility] Phosphorous 3.5 mg/dL Normal 2.2-4.6 [facility] Comment on above: Performed By: #### S URGP #### [facility] (DEFAULT) [address] [place] [address] SCREEN: MRSA/MSSAOrdered By: Gail Collado on 08-03-2024 Interpretation and review of laboratory results Normal [facility] Methicillin Resistant S. Aureus By Pcr Negative Negative [facility] Staphylococcus Aureus By Pcr Negative Negative [facility] SODIUMon 08-03-2024 Interpretation and review of laboratory results Normal [facility] Sodium [Moles/Vol] 139 mmol/L 135 - 145 mmol/L [facility] Sodium [Moles/Vol] 139 mmol/L Normal 135-145 [facility] Comment on above: Order Comment: While on 3% Hypertonic Saline. Performed By: #### N AO ####[facility] (DEFAULT)[address] [place] [address] Interpretation and review of laboratory results Abnormal [facility] Sodium [Moles/Vol] 134 mmol/L Low 135 - 145 mmol/L [facility] Sodium [Moles/Vol] 134 mmol/L Low 135-145 [facility] Comment on above: Order Comment: While on 3% Hypertonic Saline. Performed By: #### H [facility] #### [facility] (DEFAULT) [address] [place] [address] XR ABDOMEN 1 VIEW PORTABLEon 08-03-2024 XR [...] proximal second portion of the duodenum. Normal [facility] XR Abdomen Single viewon RADIOLOGY RADIOLOGY [facility] Radiology Study observation (narrative) [facility] XR Abdomen Single viewOrdere d By: Huey Gibson on 08-03-2024 [facility] XR ELBOW RIGHT 2 VIEWSon XR ELBOW RIGHT 2 VIEWS EXAM: XR ELBOW RI GHT 2 VIEWS, XR HUMERUS RIGHT 2+ VIEWS, XR WRIST RIGHT 3+ VIEWS, 08/02/2024 23:24 PM (accession [id number]), 08/02/2024 23:24 PM (accession [id number]), 08/02/2024 23:23 PM (accession [id number]) COMPARISON: No prior studies available for comparison. [...] dislocation. IMPRESSION: No acute osseous abnormality. Normal [facility] XR HUMERUS RIGHT 2+ VIEWSon 08-03-2024 XR HUMERUS RIGHT 2+ VIEWS EXAM: XR ELBOW RIGHT 2 VIEWS, XR HUMERUS RIGHT 2+ VIEWS, XR WRIST RIGHT 3+ VIEWS, 08/02/2024 23:24 PM (accession [id number]), 08/02/2024 23:24 PM (accession [id number]), 08/02/2024 23:23 PM (accession [id number]) COMPARISON: No prior studies available for comparison. [...] dislocation. IMPRESSION: No acute osseous abnormality. Normal [facility] XR WRIST RIGHT 3+ VIEWSon XR WRIST RIGHT 3+ VIEWS EXAM: XR ELBOW R IGHT 2 VIEWS, XR HUMERUS RIGHT 2+ VIEWS, XR WRIST RIGHT 3+ VIEWS, 08/02/2024 23:24 PM (accession [id number]), 08/02/2024 23:24 PM (accession [id number]), 08/02/2024 23:23 PM (accession [id number]) COMPARISON: No prior studies available for comparison. [...] dislocation. IMPRESSION: No acute osseous abnormality. Normal [facility] 12 Lead EKGon 08-02-2024 12 Lead EKG [facility] [address] [place] [address] 12 Lead EKG 08/02/24 1309 MR#: [id number] Acct: [id number] Name: LINDSAY ACUNA Rep #: [id number] : 1945 78 From: Mj Benavides MD [...] ECG Confirmed by MJ BENAVIDES MD ([id number]), advertising editor NAIMA BEARDEN ([id number]) on 08/05/2024 6:47:07 AM Referred By: Confirmed By: MJ BENAVIDES MD 08/05/24 0647 Date Mj Benavides MD CC: Dr. Pieter Morgan MD; Dr. Kameron Caruso MD Signed Normal [facility] Absolute lymphocyte countOrd ered By: Pieter Morgan on 08-02-2024 Lymphocytes Auto (Unsp spec) [#/Vol] 1.56 10*3/uL 0.83-4.51 [facility] Absolute neutrophil countOrd ered By: Pieter Morgan on 08-02-2024 Neutrophils (Bld) [#/Vol] 6.2 10*3/uL 2.0-7.7 [facility] Activated partial thrombopla stin time (aPTT) in platelet poor plasma by coagulation aOrdered By: Pieter Morgan on 08-02-2024 aPTT Coag (PPP) [Time] 28.4 s 24.1-36.2 [facility] Anion gap in Serum or Plasma Ordered By: Pieter Morgan on 08-02-2024 Anion gap [Moles/Vol] 12 mmol/L 5- [facility] Automated lymphocyte count a s percentage of total leukocytesOrdered By: Pieter Morgan on 08-02-2024 Lymphocytes/100 WBC Auto (Unsp spec) 17.9 % Low 19-41 [facility] BUN/creatinine ratioOrdered By: Pieter Morgan on 08-02-2024 Urea nitrogen/Creatinine [Mass ratio] 11.6 mg/mg - [facility] Basic Metabolic Profile (BMP )on 08-02-2024 BUN/CRE 11.6 RATIO Normal - [facility] Comment on above: Performed By: #### L 300.4310, L501.4021, L300.3900, L500.2500, L100.0100 #### [facility] [address] [place], [address] Calcium [Mass/Vol] 9.0 mg/dL Normal 7.6-11.0 [facility] Comment on above: Performed By: #### L 300.4310, L501.4021, L300.3900, L500.2500, L100.0100 #### [facility] [address] [place], [address] Chloride [Moles/Vol] 98 mmol/L Normal 98-108 [facility] Comment on above: Performed By: #### L 300.4310, L501.4021, L300.3900, L500.2500, L100.0100 #### [facility] [address] [place], [address] CO2 [Moles/Vol] 22.0 mmol/L Normal 21.0-32.0 [facility] Comment on above: Performed By: #### L 300.4310, L501.4021, L300.3900, L500.2500, L100.0100 #### [facility] [address] [place], [address] Creatinine [Mass/Vol] 1.74 mg/dL High 0.70-1.20 [facility] Comment on above: Performed By: #### L 300.4310, L501.4021, L300.3900, L500.2500, L100.0100 #### [facility] [address] [place], [address] ECRCL 27.14 ml/min Low 50-250 [facility] Comment on above: Performed By: #### L 300.4310, L501.4021, L300.3900, L500.2500, L100.0100 #### [facility] [address] [place], [address] GAP 12 Normal 5-15 [facility] Comment on above: Performed By: #### L 300.4310, L501.4021, L300.3900, L500.2500, L100.0100 #### [facility] [address] [place], [address] GFR/1.73 sq M.predicted among non-blacks MDRD (S/P/Bld) [Vol rate/Area] 29 mL/min/{1.73_m2} Low >60 [facility] Comment on above: Result Comment: mL/m in/1.73m2 CKD-EPI Creatinine Equation (2020) Performed By: #### L 300.4310, L501.4021, L300.3900, L500.2500, L100.0100 #### [facility] [address] [place], [address] Glucose [Mass/Vol] 235 mg/dL High 70-99 [facility] Comment on above: Performed By: #### L 300.4310, L501.4021, L300.3900, L500.2500, L100.0100 #### [facility] [address] [place], [address] Potassium [Moles/Vol] 4.2 mmol/L Normal 3.3-5.1 [facility] Comment on above: Performed By: #### L 300.4310, L501.4021, L300.3900, L500.2500, L100.0100 #### [facility] [address] [place], [address] Sodium [Moles/Vol] 132 mmol/L Low 133-145 [facility] Comment on above: Performed By: #### L 300.4310, L501.4021, L300.3900, L500.2500, L100.0100 #### [facility] [address] [place], [address] Urea nitrogen [Mass/Vol] 20 mg/dL High 4-19 [facility] Comment on above: Performed By: #### L 300.4310, L501.4021, L300.3900, L500.2500, L100.0100 #### [facility] [address] [place], [address] Basophil percentageOrdered B y: Pieter Morgan on 08-02-2024 Basophils/100 WBC (Bld) 0.5 % 0-1 [facility] CBC W/Diff, Automatedon - Absolute Lymph 1.56 X10 3/uL Normal 0.83-4.51 [facility] Comment on above: Performed By: #### L 300.4310, L501.4021, L300.3900, L500.2500, L100.0100 #### [facility] [address] [place], [address] Absolute Neut 6.2 X10 3/uL Normal 2.0-7.7 [facility] Comment on above: Performed By: #### L 300.4310, L501.4021, L300.3900, L500.2500, L100.0100 #### [facility] [address] [place], [address] Basophils/100 WBC (Bld) 0.5 % Normal 0-1 [facility] Comment on above: Performed By: #### L 300.4310, L501.4021, L300.3900, L500.2500, L100.0100 #### [facility] [address] [place], [address] Eosinophils/100 WBC (Bld) 1.0 % Normal 0-5 [facility] Comment on above: Performed By: #### L 300.4310, L501.4021, L300.3900, L500.2500, L100.0100 #### [facility] [address] [place], [address] Erythrocyte distribution width (RBC) [Ratio] 13.3 % Normal 11.6-14.6 [facility] Comment on above: Performed By: #### L 300.4310, L501.4021, L300.3900, L500.2500, L100.0100 #### [facility] [address] [place], [address] Hematocrit (Bld) [Volume fraction] 42.0 % Normal 37-47 [facility] Comment on above: Performed By: #### L 300.4310, L501.4021, L300.3900, L500.2500, L100.0100 #### [facility] [address] [place], [address] Hemoglobin (Bld) [Mass/Vol] 13.8 g/dL Normal 12.0-15.0 [facility] Comment on above: Performed By: #### L 300.4310, L501.4021, L300.3900, L500.2500, L100.0100 #### [facility] [address] [place], [address] IG% 0.300 Normal 0.0-0.9 [facility] Comment on above: Result Comment: IG% - Immature Granulocytes (promyelocytes, myelocytes and metamyelocytes) > 1% indicates that a LEFT SHIFT is Present. Performed By: #### L 300.4310, L501.4021, L300.3900, L500.2500, L100.0100 #### [facility] [address] [place], [address] Lymphocytes/100 WBC (Bld) 17.9 % Low 19-41 [facility] Comment on above: Performed By: #### L 300.4310, L501.4021, L300.3900, L500.2500, L100.0100 #### [facility] [address] [place], [address] MCH (RBC) [Entitic mass] 30.3 pg Normal 27.0-32.0 [facility] Comment on above: Performed By: #### L 300.4310, L501.4021, L300.3900, L500.2500, L100.0100 #### [facility] [address] [place], [address] MCHC (RBC) [Mass/Vol] 32.9 g/dL Normal 32-36 [facility] [facility] Comment on above: Performed By: #### L 300.4310, L501.4021, L300.3900, L500.2500, L100.0100 #### [facility] [address] [place], [address] MCV (RBC) [Entitic vol] 92.1 fL Normal 81-99 [facility] Comment on above: Performed By: #### L 300.4310, L501.4021, L300.3900, L500.2500, L100.0100 #### [facility] [address] [place], [address] Monocytes/100 WBC (Bld) 8.9 % Normal 0-10 [facility] Comment on above: Performed By: #### L 300.4310, L501.4021, L300.3900, L500.2500, L100.0100 #### [facility] [address] [place], [address] Neutrophils/100 WBC (Bld) 71.4 % High 47-70 [facility] Comment on above: Performed By: #### L 300.4310, L501.4021, L300.3900, L500.2500, L100.0100 #### [facility] [address] [place], [address] Nucleated RBC (Bld) [#/Vol] 0 10*3/uL Normal 0-5 [facility] Comment on above: Performed By: #### L 300.4310, L501.4021, L300.3900, L500.2500, L100.0100 #### [facility] [address] [place], [address] Platelet mean volume (Bld) [Entitic vol] 10.7 fL Normal 6.2-12.0 [facility] Comment on above: Performed By: #### L 300.4310, L501.4021, L300.3900, L500.2500, L100.0100 #### [facility] [address] [place], [address] Platelets (Bld) [#/Vol] 214 10*3/uL Normal 150-450 [facility] Comment on above: Performed By: #### L 300.4310, L501.4021, L300.3900, L500.2500, L100.0100 #### [facility] [address] [place], [address] RBC (Bld) [#/Vol] 4.56 10*6/uL Normal 4.2-5.4 [facility] Comment on above: Performed By: #### L 300.4310, L501.4021, L300.3900, L500.2500, L100.0100 #### [facility] [address] [place], [address] RDW SD 45.3 fl High 35.1-43.9 [facility] Comment on above: Performed By: #### L 300.4310, L501.4021, L300.3900, L500.2500, L100.0100 #### [facility] [address] [place], [address] WBC (Bld) [#/Vol] 8.7 10*3/uL Normal 4.4-11.0 [facility] Comment on above: Performed By: #### L 300.4310, L501.4021, L300.3900, L500.2500, L100.0100 #### [facility] [address] [place], [address] CBC,PLATELETSon 08-02-2024 Erythrocyte distribution width (RBC) [Ratio] 13.3 % 10.8 - 14.9 % [facility] Hematocrit (Bld) [Volume fraction] 43.8 % 34.9 - 44.3 % [facility] Hemoglobin (Bld) [Mass/Vol] 14 g/dL 11.4 - 15.2 g/dL [facility] Interpretation and review of laboratory results Normal [facility] MCH (RBC) [Entitic mass] 29.4 pg 25.9 - 33.9 pg [facility] MCHC (RBC) [Mass/Vol] 32 g/dL 31.4 - 35.9 g/dL [facility] MCV (RBC) [Entitic vol] 92 fL 79.6 - 97.7 fL [facility] Platelet mean volume (Bld) [Entitic vol] 10.8 fL 8.5 - 12.2 fL [facility] Platelets (Bld) [#/Vol] 245 10*3/uL 150 - 393 K/uL [facility] RBC (Bld) [#/Vol] 4.76 10*6/uL [facility] WBC (Bld) [#/Vol] 8.16 10*3/uL 3.99 - 11.19 K/uL [facility] Hematocrit (Bld) [Volume fraction] 43.8 % Normal 34.9-44.3 [facility] Comment on above: Performed By: #### B LDCULT #### [facility] (DEFAULT) [address] [place] [address] Hemoglobin (Bld) [Mass/Vol] 14.0 g/dL Normal 11.4-15.2 [facility] Comment on above: Performed By: #### B LDCULT #### [facility] (DEFAULT) [address] [address] MCV (RBC) [Entitic vol] 92.0 fL Normal 79.6-97.7 [facility] Comment on above: Performed By: #### B LDCULT #### [facility] (DEFAULT) [address] [place] [address] Mean Cell Hgb 29.4 pg Normal 25.9-33.9 [facility] Comment on above: Performed By: #### B LDCULT #### [facility] (DEFAULT) [address] [address] Mean Cell Hgb Conc 32.0 g/dL Normal 31.4-35.9 [facility] Comment on above: Performed By: #### B LDCULT #### [facility] (DEFAULT) [address] [place] [address] Platelet mean volume (Bld) [Entitic vol] 10.8 fL Normal 8.5-12.2 [facility] Comment on above: Performed By: #### B LDCULT #### [facility] (DEFAULT) [address] [place] [address] Platelets (Bld) [#/Vol] 245 10*3/uL Normal 150-393 [facility] Comment on above: Performed By: #### B LDCULT #### [facility] (DEFAULT) [address] [place] [address] RBC (Bld) [#/Vol] 4.76 10*6/uL Normal 3.91-5.04 [facility] Comment on above: Performed By: #### B LDCULT #### [facility] (DEFAULT) [address] [place] [address] RBC Distribution 13.3 % Normal 10.8-14.9 [facility] Comment on above: Performed By: #### B LDCULT #### [facility] (DEFAULT) [address] [place] [address] WBC (Bld) [#/Vol] 8.16 10*3/uL Normal 3.99-11.19 [facility] Comment on above: Performed By: #### B LDCULT #### [facility] (DEFAULT) [address] [place] [address] CHEM 7 (LYTES,BUN,CREA,GLUC) on 08-02-2024 Anion gap [Moles/Vol] 16 mmol/L 7 - 17 mmol/L [facility] Chloride [Moles/Vol] 105 mmol/L 98 - 10 8 mmol/L [facility] CO2 [Moles/Vol] 22 mmol/L 21 - 31 mmol/L [facility] Creatinine [Mass/Vol] 1.37 mg/dL High 0.50 - 1.20 mg/dL [facility] eGFR, CKD-EPI, Female 39 Low - PINF [facility] Glucose [Mass/Vol] 210 mg/dL High 70 - 179 mg/dL [facility] Osmolality Calc [Osmolality] 299 [facility] Potassium [Moles/Vol] 3.7 mmol/L 3.5 - 5.0 mmol/L [facility] Sodium [Moles/Vol] 139 mmol/L 135 - 145 mmol/L [facility] Urea nitrogen [Mass/Vol] 18 mg/dL 7 - 25 mg/dL [facility] Urea nitrogen/Creatinine [Mass ratio] 13 mg/mg [facility] Anion gap [Moles/Vol] 16 mmol/L Normal 7-17 [facility] Comment on above: Performed By: #### H [facility] #### [facility] (DEFAULT) [address] [place] [address] Chloride [Moles/Vol] 105 mmol/L Normal 98-108 [facility] Comment on above: Performed By: #### H [facility] #### [facility] (DEFAULT) [address] [place] [address] CO2 [Moles/Vol] 22 mmol/L Normal 21-31 [facility] Comment on above: Performed By: #### [facility] #### [facility] (DEFAULT) [address] [place] [address] Creatinine [Mass/Vol] 1.37 mg/dL High 0.50-1.20 [facility] Comment on above: Performed By: #### [facility] #### [facility] (DEFAULT) [address] [place] [address] GFR/1.73 sq M.predicted among non-blacks MDRD (S/P/Bld) [Vol rate/Area] 39 mL/min/{1.73_m2} Low >=60 [facility] Comment on above: Result Comment: Repo rted eGFR is based on the CKD-EPI 2020 equation using creatinine, age, and sex. Performed By: #### [facility] #### [facility] (DEFAULT) [address] [place] [address] Glucose [Mass/Vol] 210 mg/dL High Nonfastin -179 mg/dL; Fastin-99 [facility] Comment on above: Performed By: #### H EMOGC #### [facility] (DEFAULT) [address] [place] [address] Osmolality [Osmolality] 299 mosm/kg Normal 278-305 [facility] Comment on above: Performed By: #### H EMOGC #### [facility] (DEFAULT) [address] [place] [address] Potassium [Moles/Vol] 3.7 mmol/L Normal 3.5-5.0 [facility] Comment on above: Performed By: #### H EMOGC #### [facility] (DEFAULT) [address] [place] [address] Sodium [Moles/Vol] 139 mmol/L Normal 135-145 [facility] Comment on above: Performed By: #### H EMOGC #### [facility] (DEFAULT) [address] [place] [address] Urea nitrogen [Mass/Vol] 18 mg/dL Normal 7-25 [facility] Comment on above: Performed By: #### H EMOGC #### [facility] (DEFAULT) [address] [place] [address] Urea nitrogen/Creatinine [Mass ratio] 13 mg/mg Normal [facility] Comment on above: Performed By: #### H EMOGC #### [facility] (DEFAULT) [address] [place] [address] ABDOMEN/PELVIS WITH CONTR AST VASCULAR TRAUMAon [...] grade: None. Kidney trauma grade: None. Normal [facility] CT Abdomen and Pelvis W cont rast Seth 08-02-2024 RADIOLOGY RADIOLOGY [facility] CT Abdomen and Pelvis W cont rast IVOrdered By: Edson Head on 08-02-2024 [facility] Work Phone: CT Cervical spine WO contras ton 08-02-2024 Radiology Study observation (narrative) [facility] CT Orbit WO contraston 08-02 Radiology Study observation (narrative) [facility] Carbon dioxide, total [Moles /volume] in Central venous bloodOrdered By: Pieter Morgan on 08-02-2024 CO2 [Moles/Vol] 22.0 mmol/L 21.0-32.0 [facility] Chloride assayOrdered By: Racheal Morgan on 08-02-2024 Chloride [Moles/Vol] 98 mmol/L 98-108 [facility] Summary on 08-02-2024 Emergency Department Summary [facility] Medical Records Department [address] [place] [address] Emergency Department Summary 08/02/24 MR#: [id number] Acct: [id number] Name: LINDSAY ACUNA Rep #: [id number] : 1945 78 From: Pieter Morgan MD [...] the EMR. states they returned home from [facility] about 1.5-2 weeks ago, and they both had colds. He is better, but she is on round 2. [facility] Medical History Paroxysmal atrial [...] normal respir (more content not included)... Normal [facility] Eosinophil percentageOrdered By: Pieter Morgan on 08-02-2024 Eosinophils/100 WBC (Bld) 1.0 % 0-5 [facility] Erythrocyte distribution wid th ratioOrdered By: Pieter Morgan on 08-02-2024 Erythrocyte distribution width (RBC) [Ratio] 13.3 % 11.6-14.6 [facility] Erythrocyte distribution wid th standard deviationOrdered By: Pieter Morgan on 08-02-2024 Erythrocyte distribution width (RBC) [Entitic vol] 45.3 fL High 35.1-43.9 [facility] Erythrocyte distribution width (RBC) [Ratio] 45.3 fl High 35.1-43.9 [facility] Estimation of creatinine mackenzie aranceOrdered By: Pieter Morgan on 08-02-2024 Estimated Creatinine Clearance Calc 27.14 ml/min Low 50-250 [facility] GFR/1.73 sq M.predicted lana g non-blacks MDRD (S/P/Bld) [Vol rate/Area]Ordered By: Pieter Morgan on 08-02-2024 Estimated GFR (MDRD) Non-Af Amer 29 Low >60 [facility] Comment on above: mL/min/1.73m2 CKD-EP I Creatinine Equation (2020) Glomerular filtration rate ( GFR) estimation/1.73 sq m using serum, plasma, or whole bOrdered By: Pieter Morgan on 08-02-2024 GFR/1.73 sq M.predicted among non-blacks MDRD (S/P/Bld) [Vol rate/Area] 29 mL/min/{1.73_m2} Low >60 [facility] Comment on above: mL/min/1.73m2 CKD-EP I Creatinine Equation (2020) HEMOGLOBIN A1Con 08-02-2024 Average glucose Estimated from glycated hemoglobin (Bld) [Mass/Vol] 177 mg/dL [facility] HbA1c (Bld) [Mass fraction] 7.8 % High 4.7 - 5.6 % [facility] Interpretation and review of laboratory results Abnormal [facility] Glucose [Mass/Vol] 177 mg/dL Normal [facility] Comment on above: Performed By: #### [facility] #### [facility] (DEFAULT) [address] [place] [address] Hemoglobin A1C HPLC 7.8 % High 4.7-5.6 [facility] Comment on above: Performed By: #### H [facility] #### [facility] (DEFAULT) [address] [address] HEPATIC FUNCTION PANELon Albumin [Mass/Vol] 3.5 g/dL 3.5 - 5.0 g/dL [facility] ALP [Catalytic activity/Vol] 117 U/L 32 - 126 U/L [facility] ALT [Catalytic activity/Vol] 10 U/L 9 - 48 U/L [facility] AST [Catalytic activity/Vol] 17 U/L 10 - 39 U/L [facility] Bilirubin [Mass/Vol] 0.6 mg/dL BANNERF - 1.5 mg/dL [facility] Bilirubin.direct [Mass/Vol] 0.1 mg/dL NINF - 0.3 mg/dL [facility] Protein [Mass/Vol] 6.3 g/dL Low 6.4 - 8.3 g/dL [facility] Albumin [Mass/Vol] 3.5 g/dL Normal 3.5-5.0 [facility] Comment on above: Performed By: #### H EMOGC #### [facility] (DEFAULT) [address] [place] [address] ALP [Catalytic activity/Vol] 117 U/L Normal 32-126 [facility] Comment on above: Performed By: #### H EMOGC #### [facility] (DEFAULT) [address] [place] [address] ALT [Catalytic activity/Vol] 10 U/L Normal 9-48 [facility] Comment on above: Performed By: #### H EMOGC #### [facility] (DEFAULT) [address] [place] [address] AST [Catalytic activity/Vol] 17 U/L Normal 10-39 [facility] Comment on above: Performed By: #### H EMOGC #### [facility] (DEFAULT) [address] [place] [address] Bilirubin [Mass/Vol] 0.6 mg/dL Normal <1.5 [facility] Comment on above: Performed By: #### H EMOGC #### [facility] (DEFAULT) [address] [place] [address] Bilirubin.indirect [Mass/Vol] 0.1 mg/dL Normal <0.3 [facility] Comment on above: Performed By: #### H EMOGC #### [facility] (DEFAULT) [address] [place] [address] Protein [Mass/Vol] 6.3 g/dL Low 6.4-8.3 [facility] Comment on above: Performed By: #### H EMOGC #### [facility] (DEFAULT) [address] [place] [address] HIGH SENSITIVITY TROPONIN I - SINGLE ORDERon 08-02-2024 Interpretation and review of laboratory results Normal [facility] Troponin I.cardiac High sensitivity method [Mass/Vol] 9 ng/L NINF - 34 ng/L [facility] hs-Troponin I 9 ng/L Normal <34 [facility] Comment on above: Order Comment: 2 Bot tles (1 Set - consists of 1 Aerobic bottle and 1 Anaerobic bottle) - 1st Peripheral Draw For vacutainer method draw: Fill aerobic bottle first, then anaerobic Results may be compromised due to HIGH VOLUME of the BACT\ALERT bottle EXCEEDING 10mLs, which can be associated with increased contamination. The optimal blood volume is 8-10mLs per aerobic/anaerobic blood culture bottle. Performed By: #### B LDCULT #### [facility] (DEFAULT) [address] [address] Hematocrit Auto (Bld) [Volum e fraction]Ordered By: Pieterdanielle Morgan on 08-02-2024 Hematocrit (Bld) [Volume fraction] 42.0 % 37-47 [facility] Hemoglobin measurementOrdere d By: Pieterdanielle Morgan on 08-02-2024 Hemoglobin (Bld) [Mass/Vol] 13.8 g/dL 12.0-15.0 [facility] Immature granulocytes/100 WB C Auto (Bld)Ordered By: Putnam Cathy on 08-02-2024 Immature granulocytes/100 WBC (Bld) 0.300 % 0.0-0.9 [facility] Comment on above: IG% - Immature Granu locytes (promyelocytes, myelocytes and metamyelocytes) > 1% indicates that a LEFT SHIFT is Present. Influenza virus A and B and SARS-CoV-2 (COVID-19) and Respiratory syncytial virus RNAOrdered By: Pieter Morgan on 08-02-2024 SARS-CoV-2 (COVID-19) RNA CHUCKY+probe Ql (Unsp spec) [facility] International normalized rat io (INR) calculationOrdered By: [facility] INR Coag (Bld) [Relative time] 1.1 {INR} [facility] L499.0042on 08-02-2024 Trop T High Sen Normal <=14 [facility] Comment on above: Result Comment: Canc elled via OM: Order cancelled - Patient discharged Performed By: #### L 499.0042 ####[facility] [id number] [place], [address] L499.0043on 08-02-2024 Trop T High Sen Normal <=14 [facility] Comment on above: Result Comment: Canc elled via OM: Order cancelled - Patient discharged Performed By: #### L 499.0043 ####[facility] [id number] [place], [address] L501.4021on 08-02-2024 Trop T High Sen 38 ng/L High <=14 [facility] Comment on above: Performed By: #### L 300.4310, L501.4021, L300.3900, L500.2500, L100.0100 ####[facility] [id number] [place], [place], [address] LIPID PANEL WITH REFLEX TO M EASURED LDLon 08-02-2024 Cholesterol [Mass/Vol] 141 mg/dL NINF - 200 mg/dL [facility] Cholesterol in HDL [Mass/Vol] 38 mg/dL Low 40 - PINF mg/dL [facility] Cholesterol in LDL [Mass/Vol] 84 mg/dL 0 - 99 mg/dL [facility] Cholesterol non HDL [Mass/Vol] 103 mg/dL NINF - 130 mg/dL [facility] Cholesterol.total/Alta sterol in HDL [Mass ratio] 3.7 {ratio} NINF - 4.5 [facility] Triglyceride [Mass/Vol] 96 mg/dL NINF - 150 mg/dL [facility] Calculated LDL Cholesterol 84 mg/dL Normal 0-99 [facility] Comment on above: Result Comment: [<10 0 mg/dL: Optimal] [100-129 mg/dL: Near Optimal] [130-159 mg/dL: Borderline High] [160-189 mg/dL: High] [>189 mg/dL: Very High] Performed By: #### H [facility] #### [facility] (DEFAULT) [address] [place] [address] Cholesterol [Mass/Vol] 141 mg/dL Normal <200 [facility] Comment on above: Result Comment: [<20 0 mg/dL: Desirable] [200-239 mg/dL: Borderline High] [>239 mg/dL: High] Performed By: #### H EMOGC #### [facility] (DEFAULT) [address] [place] [address] Cholesterol in HDL [Mass/Vol] 38 mg/dL Low >=40 [facility] Comment on above: Result Comment: [<40 mg/dL: Low (High Risk)] [>59 mg/dL: High (Low Risk)] Performed By: #### H EMO #### [facility] (DEFAULT) [address] [place] [address] Non HDL Cholesterol 103 mg/dL Normal <130 [facility] Comment on above: Performed By: #### H EMO #### [facility] (DEFAULT) [address] [place] [address] Total Cholesterol/HDL Ratio 3.7 Normal <4.5 [facility] Comment on above: Performed By: #### H EMO #### [facility] (DEFAULT) [address] [place] [address] Triglyceride [Mass/Vol] 96 mg/dL Normal <150 [facility] Comment on above: Result Comment: [<15 0 mg/dL: Desirable] [150-199 mg/dL: Borderline] [200-499 mg/dL: High] [>500 mg/dL: Very High] Performed By: #### H EMOGC #### [facility] (DEFAULT) [address] [place] [address] Lymphocytes Auto (Unsp spec) [#/Vol]Ordered By: Pieter Morgan on 08-02-2024 Lymphocytes (Bld) [#/Vol] 1.56 10*3/uL 0.83-4.51 [facility] Lymphocytes/100 WBC Auto (Un sp spec)Ordered By: Pieter Morgan on 08-02-2024 Lymphocytes/100 WBC (Bld) 17.9 % Low 19-41 [facility] M100.678on 08-02-2024 M100.678 Pending SARS-CoV-2 (COVID 19) Negative INFLUENZA A Negative INFLUENZA B Negative RSV PCR Negative Normal [facility] Comment on above: Performed By: #### M 100.678 #### [facility] [place] [address], [address] MAGNESIUMon 08-02-2024 Magnesium [Mass/Vol] 1.2 mg/dL Low 1.6 - 2 .6 mg/dL [facility] Magnesium [Mass/Vol] 1.2 mg/dL Low 1.6-2.6 [facility] Comment on above: Performed By: #### [facility] #### [facility] (DEFAULT) [address] [place] [address] MCV (mean corpuscular volume ) determinationOrdered By: Pieter Morgan on 08-02-2024 MCV (RBC) [Entitic vol] 92.1 fL 81-99 [facility] Mean corpuscular hemoglobin (MCH) determinationOrdered By: Pieter Morgan on 08-02-2024 MCH (RBC) [Entitic mass] 30.3 pg 27.0-32.0 [facility] Mean corpuscular hemoglobin concentration (MCHC) determinationOrdered By: Pieter Morgan on 08-02-2024 MCHC (RBC) [Mass/Vol] 32.9 g/dL 32-36 [facility] Mean platelet volume determi nationOrdered By: Pieter Morgan on 08-02-2024 Platelet mean volume (Bld) [Entitic vol] 10.7 fL 6.2-12.0 [facility] Monocyte percentageOrdered B y: Pieter Morgan on 08-02-2024 Monocytes/100 WBC (Bld) 8.9 % 0-10 [facility] NT-PRO B-TYPE NATRIURETIC PE PTIDEon 08-02-2024 Natriuretic peptide B (Bld) [Mass/Vol] 1115 pg/mL High <=540 [facility] Comment on above: Performed By: #### H [facility] #### [facility] (DEFAULT) [address] [place] [address] Neutrophil percentageOrdered By: Piteer Morgan on 08-02-2024 Neutrophils/100 WBC (Bld) 71.4 % High 47-70 [facility] No Panel Informationon 08-02 Radiology Study observation (narrative) [facility] Interpretation and review of laboratory results Abnormal [facility] No Panel InformationOrdered By: Pieter Morgan on 08-02-2024 Troponin T High Sensitivity 38 ng/L High <14 [facility] Nucleated red blood cell per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 Order Comment: Deana borjas Type: BLOOD SPECIMENOrdering Facility: [facility] Address: [address] [place] [address] Result Comment: 40-5 9 mg/dL, Acceptable >59 mg/dL, High: Negative risk factor for coronary heart disease <40 mg/dL, Low: Positive risk factor for coronary heart disease Performed By: #### 2 4331-1, 63110-2, 6-3 ####[facility] LABCLIA [id number] [address] [place] Cholesterol in LDL [Mass/Vol] 123 mg/dL High <100 [facility] Comment on above: Order Comment: Deana borjas Type: BLOOD SPECIMENOrdering Facility: [facility] Address: [address] [place] [address] Result Comment: <100 mg/dL, Optimal 100-129 mg/dL, Near optimal/above optimal 130-159 mg/dL, Borderline high 160-189 mg/dL, High >189 mg/dL, Very high Secondary prevention optimal LDL Cholesterol levels are recommended to be < 70 mg/dL Performed By: #### 2 4331-1, 88357-7, 6-3 ####[facility] LABCLIA [id number] [address] [address] [place] Cholesterol in LDL/Cholesterol in HDL [Mass ratio] 2.80 {ratio} High <2.54 [facility] Comment on above: Order Comment: Speci men Type: BLOOD SPECIMENOrdering Facility: [facility] Address: [address] [place] [address] Result Comment: Chong daniel: 1. National Cholesterol Education Program ATP III Guideline At-A-Glance Quick Desk Reference: National Heart, Lung, and Blood Chinle. National Institutes of Health. 2001: NIH Publication No. 01-3305. 2. An International Atherosclerosis Society position paper: global recommendations for the management of dyslipidemia: executive summary, Atherosclerosis. 2014: 232(2):410-413. Performed By: #### 2 4331-1, 66032-9, 3015-3 ####[facility] LABCLIA [id number] [address] [address] [place] Cholesterol in VLDL [Mass/Vol] 26 mg/dL Normal <30 [facility] Comment on above: Order Comment: Speci men Type: BLOOD SPECIMENOrdering Facility: [facility] Address: [address] [place] [address] Performed By: #### 2 4331-1, 43415-9, 3 ####[facility] LABCLIA [id number] [address] [address] [place] Cholesterol non HDL [Mass/Vol] 149 mg/dL High <130 [facility] Comment on above: Order Comment: Speci men Type: BLOOD SPECIMENOrdering Facility: [facility] Address: [address] [place] [address] Result Comment: <130 mg/dL, Optimal 130-159 mg/dL, Near optimal/above optimal 160-189 mg/dL, Borderline high 190-219 mg/dL, High >219 mg/dL, Very high Secondary prevention optimal non HDL Cholesterol levels are recommended to be <100 mg/dL Performed By: #### 2 4331-1, , 3015-07 ####[facility] LABCLIA [id number] [address] [address] [place] Cholesterol.total/Alta sterol in HDL [Mass ratio] 4.39 {ratio} Normal <5.10 [facility] Comment on above: Order Comment: Speci men Type: BLOOD SPECIMENOrdering Facility: [facility] Address: [address] [place] [address] Performed By: #### 2 4331-1, , 3015-07 ####[facility] LABCLIA [id number] [address] STATES OF [facility] FASTING TIME 12 hrs Normal [facility] Comment on above: Order Comment: Speci men Type: BLOOD SPECIMENOrdering Facility: [facility] Address: [address] [place] [address] Performed By: #### 2 4331-1, , 3015-07 ####[facility] LABCLIA [id number] [address] [address] [place] Triglyceride [Mass/Vol] 129 mg/dL Normal <150 [facility] Comment on above: Order Comment: Speci men Type: BLOOD SPECIMENOrdering Facility: [facility] Address: [address] [place] [id number] Result Comment: <150 mg/dL, Normal 150-199 mg/dL, Borderline high 200-499 mg/dL, High >499 mg/dL, Very high Performed By: #### 2 4331-1, , 3015-07 ####[facility] LABCLIA [id number] [address] [address] [place] TSH SerPl-aCncon 05-23-2024 TSH Qn 0.183 m[IU]/L Low 0.270-4.200 [facility] Comment on above: Order Comment: Speci men Type: BLOOD SPECIMENOrdering Facility: [facility] Address: [address] [place] [id number] Performed By: #### 2 4331-1, 24584-6, 3016-3 ####[facility] LABCLIA [id number] MILY RODRIGUEZDESK [id number] OF [facility] CNOVon 11-28-2023 CNOV Office Visit ([facility] ) LINDSAY ACUNA ([id number]) 1945 F Date Time Provider Department 11/28/23 9:40 AM [facility] During your visit today, we recorded [...] due for colonoscopy; will contact GI in [place] Lipid: Does not watch diet or exercise. [...] 1 tablet by mouth once daily. lancets (MAPPER LithographyTOUCH DELICA PLUS LANCET) 30 gauge Test blood [...] Smoking stat (more content not included)... Normal [facility] Comprehensive metabolic 2000 panelon 11-27-2023 Albumin [Mass/Vol] 4.1 g/dL Normal 3.9-4.9 [facility] Comment on above: Order Comment: Speci men Type: BLOOD SPECIMENOrdering Facility: [facility] Address: [address] [place] [address] Performed By: #### 3 016-3, 83256-4, 72539-0 ####[facility] LABCLIA [id number] [facility] [id number] [address] [place] ALP [Catalytic activity/Vol] 86 U/L Normal 34-123 [facility] Comment on above: Order Comment: Speci men Type: BLOOD SPECIMENOrdering Facility: [facility] Address: [address] [place] [address] Performed By: #### 3 016-3, 18073-6, 30930-4 ####[facility] LABCLIA [id number] [address] [address] [place] ALT [Catalytic activity/Vol] 13 U/L Normal 7-38 [facility] Comment on above: Order Comment: Speci men Type: BLOOD SPECIMENOrdering Facility: [facility] Address: [address] [place] [address] Performed By: #### 3 016-3, 27367-5, 57008-5 ####[facility] LABCLIA [id number] [place] [address] [place] Anion gap [Moles/Vol] 10 mmol/L Normal 8-15 [facility] Comment on above: Order Comment: Speci men Type: BLOOD SPECIMENOrdering Facility: [facility] Address: [address] [place] [address] Performed By: #### 3 016-3, 40706-6, 42555-0 ####[facility] LABCLIA [id number] [place] [address] [place] AST [Catalytic activity/Vol] 21 U/L Normal 13-35 [facility] Comment on above: Order Comment: Speci men Type: BLOOD SPECIMENOrdering Facility: [facility] Address: [address] [place] [address] Performed By: #### 3 016-3, 60512-0, 26396-2 ####[facility] LABCLIA [id number] [place] [address] [place] Bilirubin [Mass/Vol] 0.5 mg/dL Normal 0.2-1.3 [facility] Comment on above: Order Comment: Speci men Type: BLOOD SPECIMENOrdering Facility: [facility] Address: [address] [place] [address] Performed By: #### 3 016-3, 99996-9, 27494-6 ####[facility] LABCLIA [id number] [address] [address] [id number] [address] [place] Calcium [Mass/Vol] 9.7 mg/dL Normal 8.5-10.2 [facility] Comment on above: Order Comment: Speci men Type: BLOOD SPECIMENOrdering Facility: [facility] Address: [address] [place] [address] Performed By: #### 3 016-3, 17150-2, 87865-2 ####[facility] LABCLIA [id number] [place] [address] [place] Chloride [Moles/Vol] 108 mmol/L High 98-107 [facility] Comment on above: Order Comment: Speci men Type: BLOOD SPECIMENOrdering Facility: [facility] Address: [address] [place] [address] Performed By: #### 3 016-3, 72942-7, 86222-1 ####[facility] LABCLIA [id number] [place] [address] [place] CO2 [Moles/Vol] 23 mmol/L Normal 22-30 [facility] Comment on above: Order Comment: Speci men Type: BLOOD SPECIMENOrdering Facility: [facility] Address: [address] [place] [address] Performed By: #### 3 016-3, 26833-4, 03624-0 ####[facility] LABCLIA [id number] [place] [address] [place] Creatinine [Mass/Vol] 1.37 mg/dL High 0.58-0.96 [facility] Comment on above: Order Comment: Speci men Type: BLOOD SPECIMENOrdering Facility: [facility] Address: [address] [place] [address] Performed By: #### 3 016-3, 06105-9, 76752-1 ####[facility] LABCLIA [id number] [place] [address] [place] Creatinine and Glomerular filtration rate.predicted panel (S/P/Bld) 39 mL/min/1.73m??? Low >=60 [facility] Comment on above: Order Comment: Deana borjas Type: BLOOD SPECIMENOrdering Facility: [facility] Address: [address] [place] [address] Result Comment: Nancy mated Glomerular Filtration Rate [...] actual GFR. Performed By: #### 3 016-3, 21845-5, 68211-1 ####[facility] LABIA [id number] [place] [address] [place] Glucose [Mass/Vol] 77 mg/dL Normal 74-99 [facility] Comment on above: Order Comment: Deana borjas Type: BLOOD SPECIMENOrdering Facility: [facility] Address: [address] [place] [address] Result Comment: The [place] Diabetes Association (ADA) provides guidance for cutoff [...] Standards of Medical Care in Diabetes 2016, [place] Diabetes Association. Diabetes Care. 2016.39(Suppl 1). Performed By: #### 3 016-3, 36902-9, 25896-3 ####[facility] LABIA [id number] [place] [id number] [place] Potassium [Moles/Vol] 4.4 mmol/L Normal 3.7-5.1 [facility] Comment on above: Order Comment: Speci men Type: BLOOD SPECIMENOrdering Facility: [facility] Address: [address] [place] [address] Performed By: #### 3 016-3, 50764-1, 55715-4 ####[facility] LABCLIA [id number] [address] [address] [place] Protein [Mass/Vol] 6.6 g/dL Normal 6.3-8.0 [facility] Comment on above: Order Comment: Speci men Type: BLOOD SPECIMENOrdering Facility: [facility] Address: [address] [place] [address] Performed By: #### 3 016-3, 22126-7, 86340-8 ####[facility] LABCLIA [id number] [place] [address] [place] Sodium [Moles/Vol] 141 mmol/L Normal 136-144 [facility] Comment on above: Order Comment: Speci men Type: BLOOD SPECIMENOrdering Facility: [facility] Address: [address] [place] [address] Performed By: #### 3 016-3, 17252-2, ####[facility] LABCLIA [id number] [place] [address] [place] Urea nitrogen [Mass/Vol] 21 mg/dL Normal 7-21 [facility] Comment on above: Order Comment: Speci men Type: BLOOD SPECIMENOrdering Facility: [facility] Address: [address] [place] [address] Performed By: #### 3 016-3, 09230-2, 22526-0 ####[facility] LABCLIA [id number] [place] [id number] [place] HbA1c (Bld)on 11-27-2023 Average glucose Estimated from glycated hemoglobin (Bld) [Mass/Vol] 166 mg/dL Normal [facility] Comment on above: Order Comment: Speci men Type: BLOOD SPECIMENOrdering Facility: [facility] Address: [address] [place] [address] Result Comment: eAG: (Estimated average glucose) is a calculated value from HgbA1c and is sales representative uniforms of the average blood glucose level in the last 2-3 month period. Performed By: #### 5 5454-3 ####[facility] LABIA [id number] [place] [address] [place] HbA1c (Bld) [Mass fraction] 7.4 % High 4.3-5.6 [facility] Comment on above: Order Comment: Speci men Type: BLOOD SPECIMENOrdering Facility: [facility] Address: [address] [place] [address] Result Comment: Amer ican Diabetes Association guidelines indicate that patients with HgbA1c in the range 5.7-6.4% are at increased risk for development of diabetes, and intervention by lifestyle modification may be beneficial. HgbA1c greater or equal to 6.5% is considered diagnostic of diabetes. Performed By: #### 5 5454-3 ####[facility] LABIA [id number] [place] [address] [place] Lipid 1996 panelon 4 Cholesterol [Mass/Vol] 156 mg/dL Normal <200 [facility] Comment on above: Order Comment: Speci men Type: BLOOD SPECIMENOrdering Facility: [facility] Address: [address] [place] [address] Result Comment: <200 mg/dL, Desirable 200-239 mg/dL, Borderline high >239 mg/dL, High Performed By: #### 3 016-3, 33594-2, 74801-6 ####[facility] LABIA [id number] [place] [address] [place] Cholesterol in HDL [Mass/Vol] 41 mg/dL Normal >39 [facility] Comment on above: Order Comment: Speci men Type: BLOOD SPECIMENOrdering Facility: [facility] Address: [address] [place] [address] Result Comment: 40-5 9 mg/dL, Acceptable >59 mg/dL, High: Negative risk factor for coronary heart disease <40 mg/dL, Low: Positive risk factor for coronary heart disease Performed By: #### 3 016-3, 76039-6, ####[facility] LABCLIA [id number] [address] [address] [place] Cholesterol in LDL [Mass/Vol] 85 mg/dL Normal <100 [facility] Comment on above: Order Comment: Speci men Type: BLOOD SPECIMENOrdering Facility: [facility] Address: [address] [place] [address] Result Comment: <100 mg/dL, Optimal 100-129 mg/dL, Near optimal/above optimal 130-159 mg/dL, Borderline high 160-189 mg/dL, High >189 mg/dL, Very high Secondary prevention optimal LDL Cholesterol levels are recommended to be < 70 mg/dL Performed By: #### 3 016-3, , ####[facility] LABCLIA [id number] [place] [address] [place] Cholesterol in LDL/Cholesterol in HDL [Mass ratio] 2.07 {ratio} Normal <2.54 [facility] Comment on above: Order Comment: Speci men Type: BLOOD SPECIMENOrdering Facility: [facility] Address: [address] [place] [address] Result Comment: Refmelanie rence: 1. National Cholesterol Education Program ATP III Guideline At-A-Glance Quick Desk Reference: National Heart, Lung, and Blood Chinle. National Institutes of Health. 2001: NIH Publication No. 01-3305. 2. An International Atherosclerosis Society position paper: global recommendations for the management of dyslipidemia: executive summary, Atherosclerosis. 2014: 232(2):410-413. Performed By: #### 3 016-3, 78223-0, ####[facility] LABCLIA [id number] [place] [address] [place] Cholesterol in VLDL [Mass/Vol] 30 mg/dL High <30 [facility] Comment on above: Order Comment: Speci men Type: BLOOD SPECIMENOrdering Facility: [facility] Address: [address] [place] [address] Performed By: #### 3 016-3, , ####[facility] LABCLIA [id number] [place] [address] [place] Cholesterol non HDL [Mass/Vol] 115 mg/dL Normal <130 [facility] Comment on above: Order Comment: Speci men Type: BLOOD SPECIMENOrdering Facility: [facility] Address: [facility] [place] [address] Result Comment: <130 mg/dL, Optimal 130-159 mg/dL, Near optimal/above optimal 160-189 mg/dL, Borderline high 190-219 mg/dL, High >219 mg/dL, Very high Secondary prevention optimal non HDL Cholesterol levels are recommended to be <100 mg/dL Performed By: #### 3 016-3, , ####[facility] LABCLIA [id number] [place] [address] [place] Cholesterol.total/Alta sterol in HDL [Mass ratio] 3.80 {ratio} Normal <5.10 [facility] Comment on above: Order Comment: Speci men Type: BLOOD SPECIMENOrdering Facility: [facility] Address: [address] [place] [address] Performed By: #### 3 016-3, , ####[facility] LABCLIA [id number] [place] [address] [place] FASTING TIME 12 hrs Normal [facility] Comment on above: Order Comment: Speci men Type: BLOOD SPECIMENOrdering Facility: [facility] Address: [facility] [place] [address] Performed By: #### 3 016-3, , 76714-9 ####[facility] LABCLIA [id number] [address] [place] Triglyceride [Mass/Vol] 148 mg/dL Normal <150 [facility] Comment on above: Order Comment: Speci men Type: BLOOD SPECIMENOrdering Facility: [facility] Address: [address] [place] [address] Result Comment: <150 mg/dL, Normal 150-199 mg/dL, Borderline high 200-499 mg/dL, High >499 mg/dL, Very high Performed By: #### 3 016-3, 10833-5, 32597-6 ####[facility] LABCLIA [id number] [place] [address] [place] TSH SerPl-aCncon 11-27-2023 TSH Qn 1.870 m[IU]/L Normal 0.270-4.200 [facility] Comment on above: Order Comment: Speci men Type: BLOOD SPECIMENOrdering Facility: [facility] Address: [address] [place] [address] Performed By: #### 3 016-3, 66647-9, 75891-4 ####[facility] LABCLIA [id number] [address] [place] CNOVon 10-10-2023 CNOV Office Visit ([facility] ) LINDSAY ACUNA ([id number]) 1945 F Date Time Provider Department 10/10/23 7:30 AM DAVID DUPREE [facility] During your visit today, we recorded the following information about you: Temperature Pulse Respiration Blood pressure 97.5 degrees 58/minute 18/minute 128/82 Weight 82.1 kg David Dupree APRN.GAUGE INSPECTOR 10/10/2023 8:11 AM Signed Subjective HPI [...] mouth daily before breakfast. blood sugar diagnostic (MAPPER LithographyTOUCH ULTRA TEST) test strip Test Blood Sugar [...] 1 tablet by mouth once daily. lancets (MAPPER LithographyTOUCH DELICA PLUS LANCET) 30 gauge Test blood sugars 1 time daily. Dx: Type 2 DM Controlled E11.9. Insulin: no Chlorhexidine Gluconate (PERIDEX) 0.12 % solution Use 15 mL as instructed twice daily. Rinse around mouth for 30 seconds then expectorate blood sugar diagnostic (MAPPER LithographyTOUCH ULTRA TEST STRIP) test strip Use to [...] Rate and (more content not included)... Normal [facility] CNOVon 09-29-2023 CNOV Office Visit ([facility] ) LINDSAY ACUNA ([id number]) 1945 F Date Time Provider Department 09/29/23 2:15 PM RADHA LEVINE [facility] During your visit today, we recorded the following information about you: Temperature Pulse Respiration Blood pressure 97.8 degrees 54/minute 18/minute 148/91 Weight 84 kg Radha Levine, FAMILY MEMBER CARETAKER.GAUGE INSPECTOR 09/29/2023 6:12 PM Signed This note was created using Psykosoftriter. Subjective Lindsay Acuna is a 77 year old female. 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 Denies fever or chills Denies malaise or fatigue Denies new lotions, soaps, or medicines States that she was working out in the garden the same day the rash erupted. The history is provided by the patient. No sign language interpreter was used. Rash This is [...] 1 tablet by mouth once daily. lancets (MAPPER LithographyTOUCH DELICA PLUS LANCET) 30 gauge Test blood [...] state. Hematologi (more content not included)... Normal [facility] Glucose,Bedsideon 04-16-2019 Glucose [Mass/Vol] 161 mg/dL High 70-100 [facility] Comment on above: Result Comment: Test performed by glucose meter. Results may be 10%-15% lower than serum/plasma values. (CLIA ID [id number]) Performed By: #### B GLU #### [address] [address] Surgical Pathologyon 019 Surgical Pathology [id number] [facility] PATHOLOGY AND LABORATORY MEDICINE [address] [place] [address] FINAL SURGICAL PATHOLOGY REPORT ___ NAME: LINDSAY ACUNA : 1945 73 Y F BILLING NO.: [id number] LOCATION: 1XEO PROCEDURE 01/09/2019 DATE: SURGEON: SANTIAGO [...] characteristics determined by the clinical laboratories of [facility]. They have not been cleared by [...] negativity on decalcified specimens. Professional Performing Location: [address] [address]. DEPARTMENT OF PATHOLOGY AND LABORATORY MEDICINE [place], [place] [address] Normal [facility] .Auto Diffon 08-22-2018 Ammonia mass conc (P) 1.10 10 3/mcL High 0.15-1.00 Count Includes [facility] ([place]) Comment on above: Performed By: #### B MP, GFR #### [address] [address] Basophils #/vol (Bld) 0.00 10 3/mcL Normal 0.00-0.19 Count Includes [facility] ([place]) Comment on above: Performed By: #### B MP, GFR #### [address] [address] Basophils/100 WBC (Bld) 0.3 % Normal 0.0-2.5 [facility] ([place]) Comment on above: Performed By: #### B MP, GFR #### [address] [address] Eosinophils #/vol (Bld) 0.00 10 3/mcL Normal 0.00-0.40 Count Includes [facility] ([place]) Comment on above: Performed By: #### B MP, GFR #### [address] [address] Eosinophils/100 WBC (Bld) 0.2 % Normal 0.0-7.0 Count Includes [facility] ([place]) Comment on above: Performed By: #### B MP, GFR #### [address] [address] Lymphocytes #/vol (Bld) 2.20 10 3/mcL Normal 0.77-3.85 Count Includes [facility] ([place]) Comment on above: Performed By: #### B MP, GFR #### [address] [address] Lymphocytes/100 WBC (Bld) 20.5 % Normal 10.0-50.0 Count Includes [facility] ([place]) Comment on above: Performed By: #### B MP, GFR #### [address] [address] Monocytes/100 WBC (Bld) 10.5 % Normal 1.7-13.0 [facility] ([place]) Comment on above: Performed By: #### B MP, GFR #### [address] [address] Neutrophils/100 WBC (Bld) 68.5 % Normal 37.0-80.0 Count Includes [facility] ([place]) Comment on above: Performed By: #### B MP, GFR #### [address] [address] .GFRon 08-22-2018 GFR Non- 33 ml/min/1.73sqm Normal Count Includes [facility] ([place]) Comment on above: Result Comment: [...] Performed By: #### B MP, GFR #### [address] [address] #### JOHN, ADCAROL, ANEU #### [place] [address] [address] GFR 40 ml/min/1.73sqm Normal Count Includes [facility] ([place] Comment on above: Result Comment: GFR Population [...] Performed By: #### B MP, GFR #### [place] [address] #### CBC, ADIFF, ANEU #### [address] [address] .NEUABSon 08-22-2018 Neutrophils #/vol (Bld) 7.40 10 3/mcL High 2.85-6.16 Count Includes [facility] ([place] Comment on above: Performed By: #### Roby MP, GFR #### [place] [address] BMPon 08-22-2018 Calcium mass conc 8.3 mg/dL Low 8.4-10.2 Count Includes [facility] ([place] Comment on above: Performed By: #### Roby MP, GFR #### [place] [address] #### CBC, ADIFF, ANEU #### [address] [address] Chloride molar conc 104 mmol/L Normal 98-107 [facility] ([place]) Comment on above: Performed By: #### B MP, GFR #### [place] [address] #### CBC, ADIFF, ANEU #### [address] [address] CO2 molar conc 25 mmol/L Normal 23-31 Count Includes [facility] ([place] Comment on above: Performed By: #### B MP, GFR #### [place] [address] #### CBC, ADIFF, ANEU #### [address] [address] Creatinine mass conc 1.53 mg/dL High 0.55-1.02 [facility] ([place]) Comment on above: Performed By: #### B MP, GFR #### [place] [address] #### CBC, ADIFF, ANEU #### [address] [address] Electrolyte Balance 10.0 mEq/L Normal [facility] ([place] Comment on above: Performed By: #### B MP, GFR #### [place] [address] #### CBC, ADIFF, ANEU #### [address] [address] Glucose mass conc 149 mg/dL High 83-110 Count Includes [facility] ([place] Comment on above: Performed By: #### B MP, GFR #### [place] [address] #### CBC, ADIFF, ANEU #### [address] [address] Potassium molar conc 4.3 mmol/L Normal 3.5-5.1 [facility] ([place] Comment on above: Performed By: #### B MP, GFR #### [place] [address] #### CBC, ADIFF, ANEU #### [address] [address] Sodium molar conc 139 mmol/L Normal 136-145 Count Includes [facility] ([place] Comment on above: Performed By: #### B MP, GFR #### [place] [address] #### CBC, ADIFF, ANEU #### [address] [address] Urea nitrogen mass conc 32 mg/dL High 7-18 [facility] ([place]) Comment on above: Performed By: #### B MP, GFR #### [place] [address] #### CBC, ADIFF, ANEU #### [place] [address] [place], [place] [address] Urea nitrogen/Creatinine mass ratio 21 ratio Normal 7-27 Count Includes [facility] ([place] Comment on above: Performed By: #### B MP, GFR #### [address] [address] #### CBC, ADIFF, ANEU #### [place] [address] [place], [place] [address] CBCon 08-22-2018 Erythrocyte distribution width Ratio (RBC) 12.6 % Normal 11.5-14.5 Count Includes [facility] ([place] Comment on above: Performed By: #### B MP, GFR #### [address] [address] Hematocrit Volume Fraction (Bld) 27.5 % Low 37.0-47.0 Count Includes [facility] ([place] Comment on above: Performed By: #### B MP, GFR #### [place] [address] Hemoglobin mass conc (Bld) 9.2 G/dL Low 12.0-16.0 Count Includes [facility] ([place] Comment on above: Performed By: #### B MP, GFR #### [address] [address] MCH Entitic mass (RBC) 30.1 pg Normal 27.0-31.2 [facility] ([place]) Comment on above: Performed By: #### B MP, GFR #### [address] [address] MCHC mass conc (RBC) 33.5 G/dL Normal 33.0-37.0 [facility] ([place] Comment on above: Performed By: #### B MP, GFR #### [address] [address] MCV Entitic volume (RBC) 89.8 fL Normal 80.0-94.0 Count Includes [facility] ([place] Comment on above: Performed By: #### B MP, GFR #### [address] [address] Platelet mean volume Entitic volume (Bld) 9.3 fL Normal 7.4-10.4 Count Includes [facility] ([place] Comment on above: Performed By: #### B MP, GFR #### [facility] [address] [place] [address] Platelets #/vol (Bld) 224 10 3/mcL Normal 130-400 [facility] ([place]) Comment on above: Performed By: #### B MP, GFR #### [address] [address] RBC #/vol (Bld) 3.06 10 6/mcL Low 4.20-5.40 [facility] ([place]) Comment on above: Performed By: #### B MP, GFR #### [address] [address] WBC #/vol (Bld) 10.80 10 3/mcL Normal 4.60-10.80 [facility] ([place] Comment on above: Performed By: #### B MP, GFR #### [place] [address] XR KNEE 1 OR 2 VIEWS RIGHTon [...] AM Sign Date: 08/21/2018 9:55:37 AM Normal Count Includes [facility] ([place] CT KNEE W/O CONTRAST RIGHTon 08-09-2018 CT [...] PM Sign Date: 08/09/2018 5:04:12 PM Normal Count Includes [facility] ([place]) .Auto Diffon 08-06-2018 Ammonia mass conc (P) 0.80 10 3/mcL Normal 0.15-1.00 Count Includes [facility] ([place]) Comment on above: Performed By: #### C DORY SMITH, ANEU #### [place] [address] #### A1C #### [place] [address] Basophils #/vol (Bld) 0.10 10 3/mcL Normal 0.00-0.19 Count Includes [facility] ([place]) Comment on above: Performed By: #### C DORY SMITH ANEU #### [place] [address] #### A1C #### [place] [address] Basophils/100 WBC (Bld) 0.6 % Normal 0.0-2.5 [facility] ([place]) Comment on above: Performed By: #### C BCDORY, ANEU #### [place] [address] #### A1C #### [place] [address] Eosinophils #/vol (Bld) 0.20 10 3/mcL Normal 0.00-0.40 Count Includes [facility] ([place] Comment on above: Performed By: #### C DORY SMITH ANEU #### [place] [address] #### A1C #### [address] [address] Eosinophils/100 WBC (Bld) 1.7 % Normal 0.0-7.0 Count Includes [facility] ([place] Comment on above: Performed By: #### C DOYR SMITH, ANEU #### [address] [address] #### A1C #### [address] [address] Lymphocytes #/vol (Bld) 1.90 10 3/mcL Normal 0.77-3.85 Count Includes [facility] ([place]) Comment on above: Performed By: #### C DORY SMITH, ANEU #### [address] [address] #### A1C #### [address] [address] Lymphocytes/100 WBC (Bld) 20.8 % Normal 10.0-50.0 Count Includes [facility] ([place] Comment on above: Performed By: #### C DORY SMITH, ANEU #### [address] [address] #### A1C #### [address] [address] Monocytes/100 WBC (Bld) 9.3 % Normal 1.7-13.0 [facility] ([place]) Comment on above: Performed By: #### C DORY SMITH, ANEU #### [address] [address] #### A1C #### [address] [address] Neutrophils/100 WBC (Bld) 67.6 % Normal 37.0-80.0 Count Includes [facility] ([place] Comment on above: Performed By: #### C DORY SMITH, ANEU #### [address] [address] #### A1C #### [address] [address] .GFRon 08-06-2018 GFR 51 ml/min/1.73sqm Normal Count Includes [facility] ([place] Comment on above: Result Comment: GFR Population [...] Performed By: #### B MP, GFR #### [address] [address] GFR Non- 42 ml/min/1.73sqm Normal Count Includes [facility] ([place] Comment on above: Result Comment: GFR Population [...] Performed By: #### B MP, GFR #### [address] [address] .NEUABSon 08-06-2018 Neutrophils #/vol (Bld) 6.20 10 3/mcL High 2.85-6.16 Count Includes [facility] ([place] Comment on above: Performed By: #### C BC, ADIFF, ANEU #### [address] [address] #### A1C #### [address] [address] A1Con 08-06-2018 Hemoglobin A1c/Hemoglobin.total mass fraction (Bld) 7.9 % High 4.5-6.2 Count Includes [facility] ([place] Comment on above: Performed By: #### C BC, ADIFF, ANEU #### [address] [address] #### A1C #### [place] [id number] BMPon 08-06-2018 Calcium mass conc 9.2 mg/dL Normal 8.4-10.2 Count Includes [facility] ([place] Comment on above: Performed By: #### B MP, GFR #### [place] [address] Chloride molar conc 105 mmol/L Normal 98-107 [facility] ([place] Comment on above: Performed By: #### B MP, GFR #### [place] [address] CO2 molar conc 27 mmol/L Normal 23-31 Count Includes [facility] ([place] Comment on above: Performed By: #### B MP, GFR #### [place] [address] Creatinine mass conc 1.25 mg/dL High 0.55-1.02 [facility] ([place] Comment on above: Performed By: #### B MP, GFR #### [place] [address] Electrolyte Balance 11.0 mEq/L Normal [facility] ([place] Comment on above: Performed By: #### B MP, GFR #### [place] [address] Glucose mass conc 70 mg/dL Low 83-110 Count Includes [facility] ([place] Comment on above: Performed By: #### B MP, GFR #### [place] [address] Potassium molar conc 5.0 mmol/L Normal 3.5-5.1 [facility] ([place] Comment on above: Performed By: #### B MP, GFR #### [address] [address] Sodium molar conc 143 mmol/L Normal 136-145 Count Includes [facility] ([place] Comment on above: Performed By: #### B MP, GFR #### [address] [address] Urea nitrogen mass conc 26 mg/dL High 7-18 [facility] ([place] Comment on above: Performed By: #### B MP, GFR #### [place] [address] Urea nitrogen/Creatinine mass ratio 21 ratio Normal 7-27 Count Includes [facility] ([place] Comment on above: Performed By: #### B MP, GFR #### [place] [id number] CBCon 08-06-2018 Erythrocyte distribution width Ratio (RBC) 12.2 % Normal 11.5-14.5 Count Includes [facility] ([place] Comment on above: Performed By: #### C DORY SMITH, ANEU #### [place] [address] #### A1C #### [place] [address] Hematocrit Volume Fraction (Bld) 34.6 % Low 37.0-47.0 Count Includes [facility] ([place] Comment on above: Performed By: #### C DORY SMITH, ANEU #### [address] [address] #### A1C #### [place] [address] Hemoglobin mass conc (Bld) 11.7 G/dL Low 12.0-16.0 Count Includes [facility] ([place] Comment on above: Performed By: #### C BCDORY, ANEU #### [place] [address] #### A1C #### [place] [address] MCH Entitic mass (RBC) 30.6 pg Normal 27.0-31.2 [facility] ([place] Comment on above: Performed By: #### C BC ADIFF, ANEU #### [address] [address] #### A1C #### [address] [address] MCHC mass conc (RBC) 33.7 G/dL Normal 33.0-37.0 [facility] ([place] Comment on above: Performed By: #### C BC, ADIFF, ANEU #### [address] [address] #### A1C #### [address] [address] MCV Entitic volume (RBC) 90.9 fL Normal 80.0-94.0 Count Includes [facility] ([place]) Comment on above: Performed By: #### C BCDORY, ANEU #### [place] [address] #### A1C #### [place] [address] Platelet mean volume Entitic volume (Bld) 8.8 fL Normal 7.4-10.4 Count Includes [facility] ([place]) Comment on above: Performed By: #### C BCDORY, ANEU #### [place] [address] #### A1C #### [address] [address] Platelets #/vol (Bld) 355 10 3/mcL Normal 130-400 [facility] ([place]) Comment on above: Performed By: #### C BC ADIFF, ANEU #### [place] [id number] #### A1C #### [place] [address] RBC #/vol (Bld) 3.81 10 6/mcL Low 4.20-5.40 [facility] ([place]) Comment on above: Performed By: #### C BC, ADIFF, ANEU #### [address] [address] #### A1C #### [place] [address] WBC #/vol (Bld) 9.20 10 3/mcL Normal 4.60-10.80 [facility] ([place] Comment on above: Performed By: #### C DORY SMITH ANEU #### [place] [address] [place], [place] [address] #### A1C #### [facility] [address] [place] [address] Vital Signs Date Time Vital Sign Value Performing Clinician Facility 10-02-2024 09:21-0400 Body height 167.[address] Kameron Caruso MD Work Phone: [facility] 10-02-2024 09:21-0400 Diastolic blood pressure 71 mm[Hg] Dr. Kameron Caruso MD Work Phone: [facility] 10-02-2024 09:21-0400 Heart rate 77 /min Dr. Kameron Caruso MD Work Phone: [facility] 10-02-2024 09:21-0400 Respiratory rate 16 /min Dr. Kameron Caruso MD Work Phone: [facility] 10-02-2024 09:21-0400 Systolic blood pressure 111 mm[Hg] Dr. Kameron Caruso MD Work Phone: [facility] 09-09-2024 09:02-0400 Heart rate 100 /min SILVINO DIORLE DO [facility] 09-09-2024 07:58-0400 Blood Pressure Cuff Size SILVINO SCHEATZLE DO [facility] 09-09-2024 07:58-0400 Blood Pressure Location SILVINO SCHEATZLE DO [facility] 09-09-2024 07:58-0400 Blood Pressure Method SILVINO SCHEATZLE DO [facility] 09-09-2024 07:58-0400 Body temperature 96.8 [degF] SILVINO SCHEATZLE DO [facility] 09-09-2024 07:58-0400 Diastolic Blood Pressure Non-Invasive 78 mm[Hg] SILVINO CIDATZLE DO [facility] 09-09-2024 07:58-0400 Heart rate 110 /min SILVINO CIDATZLE DO [facility] 09-09-2024 07:58-0400 Reason For Taking VItal Signs SILVINO CIDATZLE DO [facility] 09-09-2024 07:58-0400 Respiratory rate 16 /min SILVINO CIDATZLE DO [facility] 09-09-2024 07:58-0400 Systolic Blood Pressure Non-Invasive 122 mm[Hg] SILVINO CIDATZLE DO [facility] 09-09-2024 02:45-0400 Body temperature 97.7 [degF] SILVINO CIDATZLE DO [facility] 09-09-2024 02:45-0400 Diastolic Blood Pressure Non-Invasive 60 mm[Hg] SILVINO CIDATZLE DO [facility] 09-09-2024 02:45-0400 Heart rate 92 /min SILVINO CIDATZLE DO [facility] 09-09-2024 02:45-0400 Respiratory rate 16 /min SILVINO PALAKATZLE DO [facility] 09-09-2024 02:45-0400 Systolic Blood Pressure Non-Invasive 108 mm[Hg] SILVINO CIDATZLE DO [facility] 09-08-2024 22:28-0400 Blood Pressure Cuff Size SILVINO PALAKATZSHITAL DO [facility] 09-08-2024 22:28-0400 Blood Pressure Location SILVINO PALAKATZSHITAL DO [facility] 09-08-2024 22:28-0400 Blood Pressure [...] rate 114 /min SILVINO CIDATZLE DO [facility] 09-08-2024 09:08-0400 Reason For Taking VItal Signs SILVINO RADERLE DO [facility] 09-04-2024 10:54-0400 Body temperature 96.62 [degF] SILVINO CIDATZLE DO [facility] 09-03-2024 00:26-0400 Body temperature 97.34 [degF] SILVINO CIDATZLE DO [facility] 08-30-2024 22:54-0400 Body temperature 98.06 [degF] SILVINO CIDATZLE DO [facility] 08-26-2024 10:36-0400 Body weight 76 kg SILVINO CIDATZLE DO [facility] 08-19-2024 06:00-0400 Body weight 75.3 kg SILVINO CIDATZLE DO [facility] 08-15-2024 14:27-0400 Body height 170.2 cm SILVINO CIDATZLE DO [facility] 08-15-2024 14:27-0400 Body weight 75.4 kg SILVINO RADERLE DO [facility] 08-15-2024 14:27-0400 Body weight 26.03 kg/m2 SILVINO CIDATZLE DO [facility] 08-15-2024 09:02-0400 Diastolic blood pressure 69 mm[Hg] Prema Ramos MD Work Phone: [facility] 08-15-2024 09:02-0400 Systolic blood pressure 128 mm[Hg] Prema Ramos MD Work Phone: [facility] 08-15-2024 07:28-0400 Heart rate 86 /min Prema Ramos MD Work Phone: 5(028)843-399654 [place] [address] 08-15-2024 07:18-0400 Body temperature 97.3 [degF] Prema Ramos MD Work Phone: 1(703)317-807931 [place] [address] 08-15-2024 07:18-0400 Respiratory rate 23 /min Prema Ramos MD Work Phone: 3(079)204-075431 [place] [address] 08-15-2024 07:18-0400 SaO2% (BldA) [Mass fraction] 95 % Prema Ramos MD Work Phone: 4(464)957-756931 [place] [address] 08-05-2024 08:00-0400 Body height 170.2 cm Prema Ramos MD Work Phone: 8(525)593-610731 [place] [address] 08-05-2024 08:00-0400 Body mass index (BMI) [Ratio] 26.94 kg/m2 Prema Ramos MD Work Phone: 2(204)528-347531 [place] [address] 08-05-2024 08:00-0400 Body weight 78.02 kg Prema Ramos MD Work Phone: 2(486)158-928131 [place] [address] 08-02-2024 13:52-0400 Body temperature 98 [degF] Dr. Kameron Caruso MD Work Phone: [facility] 08-02-2024 13:52-0400 Diastolic blood pressure 91 mm[Hg] Dr. Kameron Caruso MD Work Phone: [facility] 08-02-2024 13:52-0400 Heart rate 109 /min Dr. Kameron Caruso MD Work Phone: [facility] 08-02-2024 13:52-0400 Respiratory rate 16 /min Dr. Kameron Caruso MD Work Phone: [facility] 08-02-2024 13:52-0400 SaO2% (BldA) [Mass fraction] 98 % Dr. Kameron Caruso MD Work Phone: [facility] 08-02-2024 13:52-0400 Systolic blood pressure 153 mm[Hg] Dr. Kameron Caruso MD Work Phone: [facility] 08-02-2024 12:46-0400 Body height 167.[address] Kameron Caruso MD Work Phone: [facility] 08-02-2024 12:46-0400 Body mass index (BMI) [Ratio] 26.6 kg/m2 Dr. Kameron Caruso MD Work Phone: [facility] 08-02-2024 12:46-0400 Body weight [address] Kameron Caruso MD Work Phone: [facility] 06-26-2024 09:39-0500 Body mass index (BMI) [Ratio] 27.25 kg/m2 Emma Sotomayor APRN.GAUGE INSPECTOR Work Phone: [facility] 06-26-2024 09:39-0500 Body weight 78.93 kg Emma Sotomayor FAMILY MEMBER CARETAKER.GAUGE INSPECTOR Work Phone: [facility] 06-26-2024 09:39-0500 Diastolic blood pressure 88 mm[Hg] Emma Sotomayor FAMILY MEMBER CARETAKER.GAUGE INSPECTOR Work Phone: [facility] 06-26-2024 09:39-0500 Heart rate 93 /min Emma Sotomayor FAMILY MEMBER CARETAKER.GAUGE INSPECTOR Work Phone: [facility] 06-26-2024 09:39-0500 Respiratory rate 16 /min Emma Sotomayor FAMILY MEMBER CARETAKER.GAUGE INSPECTOR Work Phone: [facility] 06-26-2024 09:39-0500 SaO2% (BldA) [Mass fraction] 98 % Emma Sotomayor FAMILY MEMBER CARETAKER.GAUGE INSPECTOR Work Phone: [facility] 06-26-2024 09:39-0500 Systolic blood pressure 144 mm[Hg] Emma Sotomayor FAMILY MEMBER CARETAKER.GAUGE INSPECTOR Work Phone: [facility] 05-31-2024 08:56-0500 Diastolic blood pressure 84 mm[Hg] Kameron Caruso MD Work Phone: [facility] 05-31-2024 08:56-0500 Systolic blood pressure 136 mm[Hg] Kameron Caruso MD Work Phone: [facility] 05-31-2024 08:47-0500 Body mass index (BMI) [Ratio] 27.28 kg/m2 Kameron Caruso MD Work Phone: [facility] 05-31-2024 08:47-0500 Body weight 79 kg Kameron Caruso MD Work Phone: [facility] 05-31-2024 08:47-0500 Heart rate 100 /min Kameron Caruso MD Work Phone: [facility] 05-31-2024 08:47-0500 Respiratory rate 18 /min Kameron Caruso MD Work Phone: [facility] 11-28-2023 09:42-0400 Diastolic blood pressure 78 mm[Hg] Kameron Caruso MD Work Phone: [facility] 11-28-2023 09:42-0400 Systolic blood pressure 142 mm[Hg] Kameron Caruso MD Work Phone: [facility] 11-28-2023 09:41-0400 Body mass index (BMI) [Ratio] 27.82 kg/m2 Kameron Caruso MD Work Phone: [facility] 11-28-2023 09:41-0400 Body weight 80.56 kg Kameron Caruso MD Work Phone: [facility] 11-28-2023 09:41-0400 Heart rate 68 /min Kameron Caruso MD Work Phone: [facility] 11-28-2023 09:41-0400 Respiratory rate 18 /min Kameron Caruso MD Work Phone: [facility] 10-10-2023 07:31-0400 Body mass index (BMI) [Ratio] 28.35 kg/m2 David Dupree APRN.GAUGE INSPECTOR Work Phone: [facility] 10-10-2023 07:31-0400 Body temperature 97.5 [degF] David Dupree APRN.GAUGE INSPECTOR Work Phone: [facility] 10-10-2023 07:31-0400 Body weight 82.1 kg David Dupree FAMILY MEMBER CARETAKER.GAUGE INSPECTOR Work Phone: [facility] 10-10-2023 07:31-0400 Diastolic blood pressure 82 mm[Hg] David Dupree FAMILY MEMBER CARETAKER.GAUGE INSPECTOR Work Phone: [facility] 10-10-2023 07:31-0400 Heart rate 58 /min David Dupree FAMILY MEMBER CARETAKER.GAUGE INSPECTOR Work Phone: [facility] 10-10-2023 07:31-0400 Respiratory rate 18 /min David Dupree FAMILY MEMBER CARETAKER.GAUGE INSPECTOR Work Phone: [facility] 10-10-2023 07:31-0400 SaO2% (BldA) [Mass fraction] 100 % David Dupree FAMILY MEMBER CARETAKER.GAUGE INSPECTOR Work Phone: [facility] 10-10-2023 07:31-0400 Systolic blood pressure 128 mm[Hg] David Dupree FAMILY MEMBER CARETAKER.GAUGE INSPECTOR Work Phone: [facility] 09-29-2023 14:14-0400 Body mass index (BMI) [Ratio] 29 kg/m2 Radha Levine FAMILY MEMBER CARETAKER.GAUGE INSPECTOR Work Phone: [facility] 09-29-2023 14:14-0400 Body temperature 97.81 [degF] Radha Levine FAMILY MEMBER CARETAKER.GAUGE INSPECTOR Work Phone: [facility] 09-29-2023 14:14-0400 Body weight 84 kg Radha Levine FAMILY MEMBER CARETAKER.GAUGE INSPECTOR Work Phone: [facility] 09-29-2023 14:14-0400 Diastolic blood pressure 91 mm[Hg] Radha Levine FAMILY MEMBER CARETAKER.GAUGE INSPECTOR Work Phone: [facility] 09-29-2023 14:14-0400 Heart rate 54 /min Radha Levine FAMILY MEMBER CARETAKER.GAUGE INSPECTOR Work Phone: [facility] 09-29-2023 14:14-0400 Respiratory rate 18 /min Radha Levine FAMILY MEMBER CARETAKER.GAUGE INSPECTOR Work Phone: [facility] 09-29-2023 14:14-0400 SaO2% (BldA) [Mass fraction] 99 % Radha Levine FAMILY MEMBER CARETAKER.GAUGE INSPECTOR Work Phone: [facility] 09-29-2023 14:14-0400 Systolic blood pressure 148 mm[Hg] Radha Levine FAMILY MEMBER CARETAKER.GAUGE INSPECTOR Work Phone: [facility] 05-27-2022 09:42-0500 Body weight 83.83 kg Kameron Caruso MD Work Phone: [facility] 05-27-2022 09:42-0500 Diastolic blood pressure 84 mm[Hg] Kameron Caruso MD Work Phone: [facility] 05-27-2022 09:42-0500 Heart rate 68 /min Kameron Caruso MD Work Phone: [facility] 05-27-2022 09:42-0500 Respiratory rate 16 /min Kameron Caruso MD Work Phone: [facility] 05-27-2022 09:42-0500 Systolic blood pressure 136 mm[Hg] Kameron Caruso MD Work Phone: [facility] 03-02-2022 10:52-0400 Diastolic blood pressure 76 mm[Hg] Emma Tannhof FAMILY MEMBER CARETAKER.GAUGE INSPECTOR Work Phone: [facility] 03-02-2022 10:52-0400 Heart rate 92 /min Emma Tannhof FAMILY MEMBER CARETAKER.GAUGE INSPECTOR Work Phone: [facility] 03-02-2022 10:52-0400 Respiratory rate 18 /min Emma Tannhof FAMILY MEMBER CARETAKER.GAUGE INSPECTOR Work Phone: [facility] 03-02-2022 10:52-0400 Systolic blood pressure 140 mm[Hg] Emma Tannhof FAMILY MEMBER CARETAKER.GAUGE INSPECTOR Work Phone: [facility] 11-23-2021 09:39-0400 Body weight 83.1 kg Kameron Caruso MD Work Phone: [facility] 11-23-2021 09:39-0400 Diastolic blood pressure 80 mm[Hg] Kameron Caruso MD Work Phone: [facility] 11-23-2021 09:39-0400 Heart rate 84 /min Kameron Caruso MD Work Phone: [facility] 11-23-2021 09:39-0400 Respiratory rate 16 /min Kameron Caruso MD Work Phone: [facility] [facility] 11-23-2021 09:39-0400 Systolic blood pressure 138 mm[Hg] Kameron Caruso MD Work Phone: [facility] 10-16-2019 10:09-0400 BP Diastolic 72 mm[Hg] Santiago Miller [facility] [place] , [place] 10-16-2019 10:09-0400 BP Systolic 144 mm[Hg] Santiago [facility] , [place] 10-16-2019 10:09-0400 Pulse (Heart Rate) 62 /min Santiago Miller [facility] 10-16-2019 10:09-0400 Pulse Oximetry 98 % Santiago Miller [facility] [place] , [place] 10-16-2019 10:09-0400 Respiratory Rate 18 /min Santiago Miller [facility] 10-16-2019 09:15-0400 BMI (Body Mass Index) 29.44 kg/m2 Santiago Miller [facility] [place], [place] 10-16-2019 09:15-0400 Body Temperature 97.81 [degF] Santiago [facility] [place] 10-16-2019 09:15-0400 Body weight 85.28 kg Santiago Miller [facility] [place] , [place] 10-16-2019 09:15-0400 Height 170.2 cm Santiago Miller [facility] [place] , [place] 01-09-2019 12:06-0400 BP Diastolic 73 mm[Hg] Santiago Miller [facility] [place] 01-09-2019 12:06-0400 BP Systolic 121 mm[Hg] Santiago Miller [facility] [place] 01-09-2019 11:50-0400 Pulse (Heart Rate) 64 /min Santiago Miller [facility] 01-09-2019 11:50-0400 Pulse Oximetry 100 % Santiago Miller [facility] , [place] 01-09-2019 11:50-0400 Respiratory Rate 18 /min Santiago Miller [facility], [place] 01-09-2019 10:28-0400 BMI (Body Mass Index) 28.82 kg/m2 Santiago Miller [facility], [place] 01-09-2019 [id number] Body weight 83.46 kg Santiago Miller [facility] , [place] 01-09-2019 10:28-040 Height 170.2 cm Santiago [facility] , [place] 01-09-2019 10:27-0400 Body Temperature 97.5 [degF] Santiago Miller [facility], [place] Encounters Encounter Date Encounter Type Care Provider Facility Start: 12-31-2024 ambulatory Efewongbe Oleghe OLS Fa cility:[facility] Start: 12-24-2024 ambulatory Efewongbe Oleghe OLS Fa cility:[facility] Start: 12-24-2024 Safia Torres Start: 12-17-2024 ambulatory Efewongbe Oleghe OLS Fa cility:[facility] Start: 12-17-2024 Sfaia Torres Start: 12-10-2024 ambulatory Efewongbe Oleghe OLS Fa cility:[facility] Start: 12-10-2024 Safia Torres Start: 12-03-2024 ambulatory Kameron Caruso Facilit y:[facility] Start: 12-03-2024 Safia Torres Start: 11-28-2024 End: 11-28-[address] Kameron Caruso MD Work Phone: -[facility] Start: 11-28-2024 End: 11-28-2024 Bret WILKERSON -[facility] Work Phone: Start: 11-26-2024 ambulatory Efewongbe Cheoghe OLS Fa cility:[facility] Start: 11-26-2024 Registered Referred Safia Torres Start: 11-26-2024 Safia Martin - [place] Start: 11-25-2024 ambulatory Efewongskye Westone OLS Fa cility:[facility] Start: 11-25-2024 Registered Referred Safia Torres Start: 11-25-2024 Safia Martin - [place] Start: 11-20-2024 End: 11-20-[address] Kameron Caruso MD Work Phone: [facility] Start: 11-20-2024 End: 11-20-2024 Bret [facility] Work Phone: Start: 11-19-2024 ambulatory Efewongskye [place] OLS Fa cility:[facility] Start: 11-19-2024 Registered Referred Safia CANAS - [place] Start: 11-19-2024 Safia Martin - [place] Start: 11-12-2024 ambulatory Efewongbe Enricoe OLS Fa cility:[facility] Start: 11-12-2024 Registered Referred Safia Torres Start: 11-12-2024 Safia Martin - [place] Start: 11-05-2024 ambulatory Efewongskye [place] OLS Fa cility:[facility] Start: 11-05-2024 Registered Referred Safia Torres Start: 11-05-2024 Safia Martin - [place] Start: 10-30-2024 End: 10-30-[address] Kameron Caruso MD Work Phone: [facility] Start: 10-30-2024 End: 10-30-2024 [facility]: Start: 10-30-2024 End: 10-30-2024 Bret Snyder NP-Chucho -[facility] ome Work Phone: Start: 10-29-2024 End: 10-29-[address] Safia Ruelas MD -[facility] Work Phone: Start: 10-29-2024 End: 10-29-[address] Kameron Caruso MD Work Phone: [facility] Start: 10-29-2024 Registered Referred Safia Torres Start: 10-29-2024 End: 10-29-2024 Dr. Safia Ruelas MD -[facility] Work Phone: Start: 10-23-2024 ambulatory Safia Yusuf cility:[facility] Start: 10-23-2024 Registered Referred Safia Torres Start: 10-23-2024 Safia Torres Start: 10-22-2024 End: 10-22-2024 Patient encounter procedure [facility] Work Phone: Start: 10-22-2024 End: 10-22-[address] Kameron Caruso MD Work Phone: [facility] Start: 10-22-2024 Registered Referred Safia Torres Start: 10-22-2024 End: 10-22-2024 Bret WILKERSON -[facility] ome Work Phone: Start: 10-15-2024 ambulatory Kameron Caruso Facilit y:[facility] Start: 10-15-2024 Registered Referred Safia Torres Start: 10-15-2024 Safia Torres Start: 10-09-2024 End: 10-09-[address] Kameron Caruso MD Work Phone: [facility] Start: 10-09-2024 End: 10-09-2024 Patient encounter procedure Bret Snyder CUTTER OPERATOR BRICKVenus -[facility] Work Phone: Start: 10-09-2024 End: 10-09-2024 Bret WILKERSON -[facility] Work Phone: Start: 10-08-2024 ambulatory Kameron Lemus y:[facility] Start: 10-08-2024 Registered Referred Safia Torres Start: 10-08-2024 Safia Torres Start: 10-02-2024 End: 10-02-[address] Mj Benavides MD -[facility] Work Phone: Start: 10-02-2024 End: 10-02-2024 Dr. Mj Benavides MD -[facility] Work Phone: Start: 10-02-2024 End: 10-02-[address] Kameron Caruso MD Work Phone: [facility] Work Phone: Start: 10-01-2024 ambulatory Efewongbe Enricoe OLS Fa cility:[facility] Start: 10-01-2024 Registered Referred Safia Torres Start: 10-01-2024 Safia Torres Start: 09-29-2024 ambulatory Efewongbe Oleghe OLS Fa cility:[facility] Start: 09-29-2024 Registered Referred Safia Torres Start: 09-29-2024 Safia Torres Start: 09-24-2024 ambulatory Efewongbe Oleghe OLS Fa cility:[facility] Start: 09-24-2024 Registered Referred Safia Torres Start: 09-24-2024 Safia Torres Start: 09-17-2024 ambulatory Safia Ruelas OLS Fa cility:[facility] Start: 09-17-2024 Registered Referred Safia Torres Start: 09-17-2024 Safia Torres Start: 09-11-2024 End: 09-11-2024 ambulatory Bret Snyder CUTTER OPERATOR BRICK Facility:[facility] Start: 09-11-2024 End: 09-11-2024 Patient encounter procedure Bret Snyder CUTTER OPERATOR BRICK-C -[facility] Work Phone: Start: 09-11-2024 End: 09-11-2024 Bret Snyder CUTTER OPERATOR BRICK-C -[facility] ome Work Phone: Start: 09-10-2024 End: 09-10-[address] Safia Ruelas MD -[facility] Work Phone: Start: 09-10-2024 End: 09-10-2024 ambulatory Safia Ruelas Facility:[facility] Start: 09-10-2024 Registered Referred Safia Torres Start: 09-10-2024 End: 09-10-2024 Dr. Safia Ruelas MD -[facility] Work Phone: Start: 08-30-2024 End: 08-30-2024 Telephone encounter Kameron Caruso MD Work Phone: [facility] Comment on above: Tyler [facility] requesti ng verbal agree to follow Start: 08-15-2024 End: 09-09-2024 Evaluation and management of inpatient SILVION HA DO Tyler Garcia Start: 08-09-2024 Evaluation and manag ement of inpatient KAMERON CARUSO Facility:[facility] Start: 08-06-2024 Evaluation and manag ement of inpatient [facility] Start: 08-02-2024 End: 08-02-2024 ambulatory JUVENTINO ROGERS Facility:[facility] Start: 08-02-2024 End: 08-15-2024 Evaluation and [...] encounter Kameron Caruso MD Work Phone: [facility] [place] Comment on above: Faxed Referral Start: 06-28-2024 End: 07-01-2024 Telephone encounter Kameron Caruso MD Work Phone: [facility] Comment on above: medication not on cu rrent med list Start: 06-26-2024 End: 06-26-2024 Office outpatient visit 25 minutes Emma Sotomayor APRN.CNP Work Phone: [facility] [place] Comment on above: Atrial fibrillation, unspecified type (HCC) (Primary Dx); Hypothyroidism, unspecified type; Need for malaria prophylaxis Start: 06-26-2024 End: 06-26-2024 ambulatory EMMA SOTOMAYOR Facility:[facility] Start: 06-25-2024 ambulatory KAMERON CARUSO Facil ity:[facility] Start: 06-24-2024 End: 06-24-2024 Telephone encounter Kameron Caruso MD Work Phone: [facility] [place] Comment on above: Patient Update Start: 06-11-2024 End: 06-11-2024 Telephone encounter Kameron Caruso MD Work Phone: [facility] [place] Comment on above: Results Start: 06-11-2024 End: 06-11-2024 ambulatory KAMERON CARUSO Facility:[facility] Start: 06-10-2024 End: 06-11-2024 Telephone encounter Kameron Caruso MD Work Phone: [facility] [place] Comment on above: Medication Problem Start: 05-31-2024 End: 05-31-2024 ambulatory [facility] Facility:[facility] Start: 05-31-2024 End: 05-31-2024 Patient encounter procedure Kameron Caruso MD Work Phone: [facility] [place] Comment on above: Essential hypertensi [...] unspecified type (HCC) Start: 05-23-2024 End: 05-23-2024 [facility] Facility:[facility] Start: 11-28-2023 End: 11-28-2023 [facility] Start: 11-28-2023 End: 11-28-2023 Patient encounter procedure Kameron Caruso MD Work Phone: [facility] [place] Comment on above: 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, unspecified CKD stage, 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 insulin use (HCC) (Primary Dx); Essential hypertension, benign; Chronic kidney disease, stage 3a (HCC); Hyperlipidemia, unspecified hyperlipidemia type; Hypothyroidism, unspecified type; Edema of left lower leg; Memory loss; Type 2 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, without long-term current use of insulin ([facility]) Start: 11-27-2023 End: 11-27-2023 ambulatory [facility] Facility:[facility] Start: 10-10-2023 End: 10-10-2023 [facility] Facility:[facility] Start: 10-10-2023 End: 10-10-2023 Office outpatient visit 25 minutes David Dupree APRN.CNP Work Phone: [facility] Comment on above: Rash (Primary Dx) Start: 09-29-2023 End: 09-29-2023 ambulatory KAMERON CARUSO Facility:[facility] Start: 09-29-2023 End: 09-29-2023 Patient encounter procedure Radha Levine FAMILY MEMBER CARETAKER.[employer]UGE INSPECTOR Work Phone: [facility] Comment on above: Allergic contact lexi matitis due to plant (Primary Dx) Start: 09-19-2023 Refill Kameron nixon MD Work Phone: [facility] [place] Comment on above: Refill Request Start: 04-08-2023 Telephone encounter Kameron bucio MD Work Phone: [address] [place] [address] Comment on above: Refill Request Start: 11-25-2022 Telephone encounter Kameron bucio MD Work Phone: [facility] [place] Comment on above: Patient Question Start: 05-27-2022 End: 05-27-2022 Patient encounter procedure Kameron Caruso MD Work Phone: [facility] [place] Comment on above: Essential hypertensi on, benign (Primary Dx); Hypothyroidism, unspecified type; Type 2 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, without long-term current use of insulin (HCC); Hyperlipidemia, unspecified hyperlipidemia type; Chronic kidney disease, stage 3a (HCC); Edema of left lower leg; Wellness examination Start: 05-27-2022 End: 05-27-2022 Patient encounter status Kameron Caruso MD Work Phone: [facility] [place] Start: 04-11-2022 Refill Kameron nixon MD Work Phone: [facility] Comment on above: Refill Request Start: 03-02-2022 ambulatory Kameron nixon MD Work Phone: [facility] [place] Comment on above: Back Pain Start: 03-02-2022 End: 03-02-2022 Patient encounter procedure Emma Sotomayor FAMILY MEMBER CARETAKER.GAUGE INSPECTOR Work Phone: [facility] Comment on above: Acute midline low ba ck pain without sciatica (Primary Dx) Start: 01-11-2022 Refill Mj ORTIZ RN.GAUGE INSPECTOR Work Phone: [facility] Comment on above: Refill Request Start: 01-11-2022 Refill Kameron nixon MD Work Phone: [facility] Comment on above: Refill Request Start: 12-16-2021 Telephone encounter Kameron bucio MD Work Phone: [facility] Comment on above: Diabetic Testing Sup plies Start: 11-23-2021 End: 11-23-2021 Refill Kameron Caruso MD Work Phone: [facility] Comment on above: 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, unspecified CKD stage, unspecified whether assisted insulin use (HCC) (Primary Dx); Essential hypertension, benign; Hyperlipidemia, unspecified hyperlipidemia type; Stage 3b chronic kidney disease (HCC); Hypothyroidism, unspecified type; Memory loss Start: 10-14-2021 Refill Kameron nixon MD Work Phone: [facility] Comment on above: Refill Request Start: 09-27-2021 Telephone encounter Kameron bucio MD Work Phone: [facility] Comment on above: information requeste d/rxs needed Start: 09-13-2021 Telephone encounter Kameron bucio MD Work Phone: [facility] Comment on above: Patient Question; Me [...] Performing Clinician Start: 12-24-2024 Blood count smear rscp w/mnl difrntl wbc count Dr. Kameron [...] Mean corpuscular hem oglobin concentration determination Dr. aKmeron Caruso MD Work Phone: Start: 12-03-2024 Nucleated [...] 10-22-2024 Platelet mean volume determination Dr. Kameron aCruso MD Work Phone: Start: 10-15-2024 Blood count [...] 08-15-2024 Assay of magnesium Nase scott Mccoy FAMILY MEMBER CARETAKER-GAUGE INSPECTOR Work Phone: Start: 08-15-2024 Glucose measurement, blood Christos Voss MD Work Phone: Start: 08-14-2024 Glucose measurement, blood Christos Voss MD Work Phone: Start: 08-14-2024 Glucose measurement, blood Christos Voss MD Work Phone: Start: 08-14-2024 Glucose measurement, blood Christos Voss MD Work Phone: Start: 08-14-2024 Assay of magnesium Abdoule scott Schulteameh FAMILY MEMBER CARETAKER-GAUGE INSPECTOR Work Phone: Start: 08-13-2024 Glucose measurement, blood Christos Voss MD Work Phone: Start: 08-13-2024 Glucose measurement, blood Christos Voss MD Work Phone: Start: 08-13-2024 Glucose measurement, blood Christos Voss MD Work Phone: Start: 08-13-2024 Glucose measurement, blood Felicity Castellano MD Work Phone: Start: 08-13-2024 Assay of magnesium Abdoule scott Schulteameh FAMILY MEMBER CARETAKER-GAUGE INSPECTOR Work Phone: Start: 08-13-2024 Glucose measurement, blood Felicity Castellano MD Work Phone: Start: 08-12-2024 Glucose measurement, blood Felicity Castellano MD Work Phone: Start: 08-12-2024 Glucose measurement, blood Felicity Castellano MD Work Phone: Start: 08-12-2024 Glucose measurement, blood Felicity Castellano MD Work Phone: Start: 08-12-2024 Assay of magnesium Nase scott Cardenash FAMILY MEMBER CARETAKER-GAUGE INSPECTOR Work Phone: Start: 08-12-2024 Glucose measurement, blood Felicity Castellano MD Work Phone: Start: 08-11-2024 Glucose measurement, blood Felicity Castellano MD Work Phone: Start: 08-11-2024 Glucose measurement, blood Felicity Castellano MD Work Phone: Start: 08-11-2024 Glucose measurement, blood Felicity Castellano MD Work Phone: Start: 08-11-2024 Assay of magnesium Abram Hwang Nadine FAMILY MEMBER CARETAKER-GAUGE INSPECTOR Work Phone: Start: 08-10-2024 Glucose measurement, blood Felicity Castellano MD Work Phone: Start: 08-10-2024 Glucose measurement, blood Felicity Castellano MD Work Phone: Start: 08-10-2024 End: 08-10-2024 Culture bacterial blood aerobic w/id isolates Radha Gr FAMILY MEMBER CARETAKER-GAUGE INSPECTOR Work Phone: Start: 08-10-2024 Glucose measurement, blood Felicity Castellano MD Work Phone: Start: 08-10-2024 End: 08-10-2024 Glucose measurement, blood Felicity Castellano MD Work Phone: Start: 08-10-2024 Glucose measurement, blood Felicity Castellano MD Work Phone: Start: 08-10-2024 Assay of magnesium Abram Hwang Nadine FAMILY MEMBER CARETAKER-GAUGE INSPECTOR Work Phone: Start: 08-10-2024 Glucose measurement, [...] Start: 08-09-2024 Assay of magnesium Abram Schulteameh FAMILY MEMBER CARETAKER-GAUGE INSPECTOR Work Phone: Start: 08-09-2024 Glucose measurement, blood Felicity Castellano MD Work Phone: Start: 08-08-2024 Glucose measurement, blood Felicity Castellano MD Work Phone: Start: 08-08-2024 Culture bct isol&prs mptv id isolate ea urine Bella Cardenas FAMILY MEMBER CARETAKER-GAUGE INSPECTOR Work Phone: Start: 08-08-2024 EXTRA MICRO Bella Hwang Ma rtforrest FAMILY MEMBER CARETAKER-GAUGE INSPECTOR Work Phone: Start: 08-08-2024 URINALYSIS REFLEX TO CULTURE Bella Cardenas FAMILY MEMBER CARETAKER-GAUGE INSPECTOR Work Phone: Start: 08-08-2024 Ct head/brain w/o co ntrast material Bella Cardenas FAMILY MEMBER CARETAKER-GAUGE INSPECTOR Work Phone: Start: 08-08-2024 Glucose measurement, blood Felicity Castellano MD Work Phone: Start: 08-08-2024 End: 08-08-2024 Glucose measurement, blood Felicity Castellano MD Work Phone: Start: 08-08-2024 Assay of magnesium Abram Mccoy FAMILY MEMBER CARETAKER-GAUGE INSPECTOR Work Phone: Start: 08-07-2024 Glucose measurement, blood Felicity Castellano MD Work Phone: Start: 08-07-2024 Glucose measurement, blood Felicity Castellano MD Work Phone: Start: 08-07-2024 Glucose measurement, blood Felicity Castellano MD Work Phone: Start: 08-07-2024 Glucose measurement, blood Felicity Castellano MD Work Phone: Start: 08-06-2024 Glucose measurement, blood Felicity Castellano MD Work Phone: Start: 08-06-2024 Assay of magnesium Nase rin M Nadine FAMILY MEMBER CARETAKER-GAUGE INSPECTOR Work Phone: Start: 08-06-2024 Glucose measurement, blood Felicity Castellano MD Work Phone: Start: 08-06-2024 Glucose measurement, blood Felicity Castellano MD Work Phone: Start: 08-06-2024 Radiologic exam swal low function contrast study Shanna Russ FAMILY MEMBER CARETAKER-GAUGE INSPECTOR Work Phone: Start: 08-06-2024 SPEECH MODIFIED KEAGAN UM SWALLOW Shanna Russ FAMILY MEMBER CARETAKER-GAUGE INSPECTOR Work Phone: Start: 08-06-2024 Glucose measurement, blood Felicity Castellano MD Work Phone: Start: 08-05-2024 Glucose measurement, blood Felicity Castellano MD Work Phone: Start: 08-05-2024 Assay of magnesium Nase rin M Nadine FAMILY MEMBER CARETAKER-GAUGE INSPECTOR Work Phone: Start: 08-05-2024 Glucose measurement, blood Felicity Castellano MD Work Phone: Start: 08-05-2024 Glucose measurement, blood Felicity Castellano MD Work Phone: Start: 08-05-2024 Echo tthrc r-t 2d w/wom-mode compl spec&colr d Taran Traore FAMILY MEMBER CARETAKER-GAUGE INSPECTOR Work Phone: Start: 08-05-2024 Glucose measurement, blood Felicity Castellano MD Work Phone: Start: 08-05-2024 Assay of magnesium Abram scott Mccoy FAMILY MEMBER CARETAKER-GAUGE INSPECTOR Work Phone: Start: 08-05-2024 Glucose measurement, blood Richard Mejia MD Work Phone: Start: 08-04-2024 Sodium serum plasma or whole blood Shanna Denise MD Work Phone: Start: 08-04-2024 Glucose measurement, blood Richard Mjeia MD Work Phone: Start: 08-04-2024 Glucose measurement, blood Richard Mejia MD Work Phone: Start: 08-04-2024 Sodium serum plasma or whole blood Shanna Denise MD Work Phone: Start: 08-04-2024 Glucose measurement, blood Richard Mejia MD Work Phone: Start: 08-04-2024 Sodium serum plasma or whole blood Shanna Denise MD Work Phone: Start: 08-04-2024 Assay of magnesium Abram Mccoy FAMILY MEMBER CARETAKER-GAUGE INSPECTOR Work Phone: Start: 08-04-2024 Glucose measurement, blood Richard Mejia MD Work Phone: Start: 08-03-2024 Ct head/brain w/o co ntrast material Shaila Méndez PA-C Start: 08-03-2024 Sodium serum plasma or whole blood Shanna Denise MD Work Phone: Start: 08-03-2024 Glucose measurement, blood Richard Mejia MD Work Phone: Start: 08-03-2024 Radiologic exam abdo men 1 view Balbir Mccoy FAMILY MEMBER CARETAKER-GAUGE INSPECTOR Work Phone: Start: 08-03-2024 Glucose measurement, [...] brain stem w/o contrast material Taran Traore FAMILY MEMBER CARETAKER-GAUGE INSPECTOR Work Phone: Start: 08-03-2024 ABORH TYPE RECONFIRMATION Cindy Booker MBBS Work Phone: Start: 08-03-2024 Assay of magnesium Nase scott Hwang Nadine FAMILY MEMBER CARETAKER-GAUGE INSPECTOR Work Phone: Start: 08-02-2024 Glucose measurement, [...] Performed By: #### X M #### [facility] ([facility]) [address] [place] [address] Start: 08-02-2024 EXTRA MICRO Taran Traore FAMILY MEMBER CARETAKER-GAUGE INSPECTOR Work Phone: Start: 08-02-2024 Hemoglobin glycosylated a1c Balbir Mccoy FAMILY MEMBER CARETAKER-GAUGE INSPECTOR Work Phone: Start: 08-02-2024 Hepatic function panel Balbir Mccoy FAMILY MEMBER CARETAKER-[facility] Work Phone: Start: 08-02-2024 Iadna s aureus ampli fied probe tq Balbir Mccoy FAMILY MEMBER CARETAKER-[facility] Work Phone: Start: 08-02-2024 URINALYSIS REFLEX TO CULTURE Taran Traore [facility] Work Phone: Start: 08-02-2024 Urnls dip stick/tabl et reagent auto microscopy Taran Traore [facility] Work Phone: Start: 08-02-2024 SARS-CoV-2, Influenz a [...] Author Start: 08-15-2025 Complete blood count Hemoglobin/Hematocrit [facility] Start: 08-15-2025 Creatinine measurement Serum Creatinine [facility] Start: 08-02-2025 Thyroid stimulating hormone measurement [facility] Start: 06-26-2025 Annual PCP Team Chronic Disease Visit Annual PCP Team Chronic Disease Visit [facility] Start: 05-31-2025 Annual PCP Team Chronic Disease Visit Annual PCP Team Chronic Disease Visit [facility] Start: 05-31-2025 Covid-19 Vaccine () Covid-19 Vaccine () [facility] Comment on above: Postponed from 01/14/2024 (Declined at t his time) Start: 05-31-2025 Pneumococcal Vaccine: 50+ (2 of 2 - PPSV23) Pneumococcal Vaccine: 50+ (2 of 2 - PPSV23) [facility] Comment on above: Postponed from 12/19/2019 (Declined at t his time) Start: 05-23-2025 Creatinine measurement Serum Creatinine [facility] Start: 05-23-2025 Hepatitis B screening Urine Albumin:Creatinine Ratio [facility] Start: 05-23-2025 Hepatitis B surface antibody level LDL Cholesterol [facility] Start: 02-02-2025 Hemoglobin A[facility]c [facility] Start: 01-13-2025 Influenza vaccination [facility] Start: 01-03-2025 Glaucoma screening Dilated Retinal Exam [facility] Start: 12-24-2024 End: 12-24-2024 Patient encounter procedure 12/24/2024 9:20 AM EDT Office Visit Family [place] [address] [place] [id number] Kameron Caruso MD [address] [place] [id number] 6 month follow up Family [place] Comment on above: 6 month follow up Start: 11-28-2024 End: 02-27-2025 Comprehensive metabolic 2000 panel - Serum or Plasma COMPREHENSIVE METABOLIC PANEL Lab Routine Essential hypertension, benign Chronic kidney disease, stage 3a (HCC) Hyperlipidemia, unspecified hyperlipidemia type Expected: 11/28/2024 (Approximate), Expires: 02/27/[address] [facility] Work Phone: Comment on above: Expected: 11/28/2024 (Approximate), Expi res: 02/27/2025 Start: 11-28-2024 End: 02-27-2025 Hemoglobin A1c in Blood HEMOGLOBIN A1C Lab Routine Expected: 11/28/2024 (Approximate), Expires: 02/27/2025 [facility] Comment on above: Expected: 11/28/2024 (Approximate), Expi res: 02/27/2025 Start: 11-28-2024 End: 02-27-2025 Lipid 1996 panel - Serum or Plasma LIPID PANEL BASIC Lab Routine Essential hypertension, benign Hyperlipidemia, unspecified hyperlipidemia type Expected: 11/28/2024 (Approximate), Expires: 02/27/2025 [facility] Comment on above: Expected: 11/28/2024 (Approximate), Expi res: 02/27/2025 Start: 11-28-2024 End: 02-27-2025 Thyrotropin [Units/volume] in Serum or Plasma THYROID STIMULATING HORMONE Lab Routine Hypothyroidism, unspecified type Expected: 11/28/2024 (Approximate), Expires: 02/27/2025 [facility] Comment on above: Expected: 11/28/2024 (Approximate), Expi res: 02/27/2025 Start: 11-27-2024 Annual PCP Team Chronic Disease Visit Annual PCP Team Chronic Disease Visit [facility] Start: 11-27-2024 Anxiety Screening Anxiety Screening [facility] Start: 11-27-2024 Depression Screening Depression Screening [facility] Start: 11-27-2024 RSV Vaccine (1 - 1-dose 60+ series) RSV Vaccine (1 - 1-dose 60+ series) [facility] Comment on above: Postponed from 2004 (Declined at t his time) Start: 11-27-2024 RSV Vaccine (1 - 1-dose 75+ series) RSV Vaccine (1 - 1-dose 75+ series) [facility] Comment on above: Postponed from 10/26/2019 (Declined at t his time) Start: 11-26-2024 Creatinine measurement Serum Creatinine [facility] Start: 11-26-2024 Hepatitis B surface antibody level LDL Cholesterol [facility] Start: 11-20-2024 [facility]oglobin [facility]c [facility] Start: 11-11-2024 [facility]enza [facility] Comment on above: Postponed from 01/14/2024 (Declined at t his time) Start: 10-08-2024 End: 10-08-2024 [facility]ulatory [facility] Start: 10-02-2024 Evaluation of diagnostic study results 12 Lead EKG performed by [facility] Start: 08-02-2024 [facility] Start: 08-02-2024 SARS-CoV-2, Influenza & RSV (PCR) SARS-CoV-2, Influenza & RSV (PCR) [facility] Start: 08-02-2024 End: 08-02-2024 [facility] Start: 08-02-2024 Electrocardiographic procedure [facility] Start: 08-02-2024 Oxygen therapy [facility] Start: 07-24-2024 End: 10-23-2024 Thyrotropin [Units/volume] in Serum or Plasma THYROID STIMULATING HORMONE Lab Routine Hypothyroidism, unspecified type Expected: 07/24/2024, Expires: 10/23/[address] [facility] Work Phone: Comment on above: Expected: 07/24/2024, Expires: Start: 07-24-2024 End: 10-23-2024 Thyroxine (T4) free [Mass/volume] in Serum or Plasma T4 FREE/FREE THYROXINE Lab Routine Hypothyroidism, unspecified type Expected: 07/24/2024, Expires: 10/23/2024 [facility] Comment on above: Expected: 07/24/2024, Expires: Start: 06-25-2024 End: 06-25-2024 Patient encounter procedure 06/25/2024 9:40 AM EST Office Visit [facility] [place] [address] [place] [address] Kameron Caruso MD [address] [place] [address] 1 mo f/u, new dx afib. [facility] [place] Comment on above: 1 mo f/u, new dx afib. Start: 06-11-2024 End: 06-11-2024 Patient encounter procedure 06/11/2024 8:50 AM EST Office Visit Cardiology [address] [place] [address] Atrial fibrillation, unspecified type (HCC) [I48.91] Cardiology Comment on above: Atrial fibrillation, unspecified type (H CC) [I48.91] Start: 05-30-2024 Annual PCP Team Chronic Disease Visit Annual PCP Team Chronic Disease Visit [facility] Start: 05-30-2024 End: 08-29-2024 Comprehensive metabolic 2000 panel - Serum or Plasma COMPREHENSIVE METABOLIC PANEL Lab Routine Type 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, unspecified CKD stage, unspecified whether assisted insulin use (HCC) Essential hypertension, benign Chronic kidney disease, stage 3a (HCC) Hyperlipidemia, unspecified hyperlipidemia type Expected: 05/30/2024 (Approximate), Expires: 08/29/[address] [facility] Work Phone: Comment on above: Expected: 05/30/2024 (Approximate), Expi res: 08/29/2024 Start: 05-30-2024 Covid-19 Vaccine () Covid-19 Vaccine () [facility] Comment on above: Postponed from 01/13/2023 (Declined at t his time) Start: 05-30-2024 End: 08-29-2024 Hemoglobin A1c in Blood HEMOGLOBIN A1C Lab Routine Type 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, unspecified CKD stage, unspecified whether assisted insulin use (HCC) Expected: 05/30/2024 (Approximate), Expires: 08/29/2024 [facility] Comment on above: Expected: 05/30/2024 (Approximate), Expi res: 08/29/2024 Start: 05-30-2024 Hepatitis C screening Hepatitis C Screening [facility] Comment on above: Postponed from 1962 (Declined at t his time) Start: 05-30-2024 End: 08-29-2024 Lipid 1996 panel - Serum or Plasma LIPID PANEL BASIC Lab Routine Type 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, unspecified CKD stage, 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 insulin use (HCC) Essential hypertension, benign Hyperlipidemia, unspecified hyperlipidemia type Expected: 05/30/2024 (Approximate), Expires: 08/29/2024 [facility] Comment on above: Expected: 05/30/2024 (Approximate), Expi res: 08/29/2024 Start: 05-30-2024 End: 08-29-2024 Microalbumin/Creatinine [Mass Ratio] in Urine ALBUMIN/CREATININE RATIO, URINE Lab Routine Type 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, unspecified CKD stage, unspecified whether assisted insulin use (HCC) Expected: 05/30/2024 (Approximate), Expires: 08/29/2024 [facility] Comment on above: Expected: 05/30/2024 (Approximate), Expi res: 08/29/2024 Start: 05-30-2024 Pneumococcal Vaccine: 65+ (2 of 2 - PPSV23 or PCV20) Pneumococcal Vaccine: 65+ (2 of 2 - PPSV23 or PCV20) [facility] Comment on above: Postponed from 12/19/2019 (Declined at t his time) Start: 05-30-2024 End: 08-29-2024 Thyrotropin [Units/volume] in Serum or Plasma THYROID STIMULATING HORMONE Lab Routine Hypothyroidism, unspecified type Expected: 05/30/2024 (Approximate), Expires: 08/29/2024 [facility] Comment on above: Expected: 05/30/2024 (Approximate), Expi res: 08/29/2024 Start: 05-30-2024 End: 05-30-2024 Patient encounter procedure 05/30/2024 9:40 AM EST Office Visit [facility] [place] [address] [place], [place] [address] Kameron Caruso MD [address] [place] [id number] 6 mo f/u [facility] Comment on above: 6 mo f/u Start: 05-29-2024 Hemoglobin A1c measurement HbA1C [facility] Start: 05-16-2024 Creatinine measurement Serum Creatinine [facility] Start: 05-16-2024 Hepatitis B screening Urine Albumin:Creatinine Ratio [facility] Start: 05-16-2024 Hepatitis B surface antibody level LDL Cholesterol [facility] Start: 05-15-2024 Advance Directive Discussion Advance Directive Discussion [facility] Start: 01-14-2024 Influenza vaccination [facility] Start: 01-14-2024 [facility] Start: 01-04-2024 Glaucoma screening Dilated Retinal Exam [facility] Start: 01-04-2024 Hepatitis C antibody, confirmatory test Dilated Retinal Exam [facility] Start: 11-28-2023 End: 11-28-2023 Patient encounter procedure 11/28/2023 9:40 AM EDT Office Visit Family [place] [facility] [address] [place], [place] [id number] Kameron Caruso MD [address] [place] [id number] 6 mo follow up [facility] Comment on above: 6 mo follow up Start: 11-26-2023 ANNUAL PCP TEAM CHRONIC DISEASE VISIT ANNUAL PCP TEAM CHRONIC DISEASE VISIT [facility] Start: 11-26-2023 BP CONTROLLED (<130/80) BP CONTROLLED (<130/80) [facility] Start: 11-23-2023 Complete blood count Hemoglobin/Hematocrit [facility] Start: 11-23-2023 HEMOGLOBIN/HEMATOCRIT HEMOGLOBIN/HEMATOCRIT [facility] Start: 11-23-2023 Hepatitis B surface antibody level LDL CHOLESTEROL [facility] Start: 11-23-2023 SERUM CREATININE SERUM CREATININE [facility] Start: 11-14-2023 Hemoglobin A1c [facility] Start: 05-27-2023 ANNUAL PCP TEAM CHRONIC DISEASE VISIT ANNUAL PCP TEAM CHRONIC DISEASE VISIT [facility] Start: 05-27-2023 COVID-19 VACCINE (2 - Booster for Alyssa series) COVID-19 VACCINE (2 - Booster for Alyssa series) [facility] Comment on above: Postponed from 09/17/2020 (Declined at t his time) Start: 05-27-2023 HEPATITIS C SCREENING HEPATITIS C SCREENING [facility] Comment on above: Postponed from 1962 (Declined at t his time) Start: 05-25-2023 Hemoglobin A1c/Hemoglobin.total in Blood HBA1C [facility] Start: 05-19-2023 HEMOGLOBIN/HEMATOCRIT HEMOGLOBIN/HEMATOCRIT [facility] Start: 05-19-2023 Hepatitis B surface antibody level LDL CHOLESTEROL [facility] Start: 05-19-2023 SERUM CREATININE SERUM CREATININE [facility] Start: 05-15-2023 Advance Directive Discussion Advance Directive Discussion [facility] Start: 05-15-2023 Behavioral Health Screening Behavioral Health Screening [facility] Start: 03-02-2023 ANNUAL PCP TEAM CHRONIC DISEASE VISIT ANNUAL PCP TEAM CHRONIC DISEASE VISIT [facility] Start: 01-13-2023 Covid-19 Vaccine () Covid-19 Vaccine () [facility] Start: 01-13-2023 Influenza vaccination [facility] Start: 12-27-2022 Hepatitis C antibody, confirmatory test DILATED RETINAL EXAM [facility] Start: 11-24-2022 End: 01-24-2023 CBC panel - Blood by Automated count CBC Lab Routine Essential hypertension, benign Hypothyroidism, unspecified type Expected: 11/24/2022 (Approximate), Expires: 01/24/[address] [facility] Work Phone: Comment on above: Expected: 11/24/2022 (Approximate), Expi res: 01/24/2023 Start: 11-24-2022 End: 01-24-2023 Comprehensive metabolic 2000 panel - Serum or Plasma COMP METABOLIC PANEL Lab Routine Essential hypertension, benign Type 2 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, without long-term current use of insulin (HCC) Hyperlipidemia, unspecified hyperlipidemia type Expected: 11/24/2022 (Approximate), Expires: 01/24/[address] [facility] Work Phone: Comment on above: Expected: 11/24/2022 (Approximate), Expi res: 01/24/2023 Start: 11-24-2022 End: 01-24-2023 Hemoglobin A1c in Blood HGB A1C Lab Routine Type 2 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, without long-term current use of insulin (HCC) Expected: 11/24/2022 (Approximate), Expires: 01/24/[address] [facility] Work Phone: Comment on above: Expected: 11/24/2022 (Approximate), Expi res: 01/24/2023 Start: 11-24-2022 End: 01-24-2023 Lipid 1996 panel - Serum or Plasma LIPID PANEL BASIC Lab Routine Essential hypertension, benign Type 2 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, without long-term current use of insulin (HCC) Hyperlipidemia, unspecified hyperlipidemia type Expected: 11/24/2022 (Approximate), Expires: 01/24/[address] [facility] Work Phone: Comment on above: Expected: 11/24/2022 (Approximate), Expi res: 01/24/2023 Start: 11-24-2022 End: 01-24-2023 Thyrotropin [Units/volume] in Serum or Plasma TSH BLD Lab Routine Hypothyroidism, unspecified type Expected: 11/24/2022 (Approximate), Expires: 01/24/[address] [facility] Work Phone: Comment on above: Expected: 11/24/2022 (Approximate), Expi res: 01/24/2023 Start: 11-23-2022 3 comp foot exam completed DIABETIC FOOT EXAM [facility] Start: 11-23-2022 ANNUAL PCP TEAM CHRONIC DISEASE VISIT ANNUAL PCP TEAM CHRONIC DISEASE VISIT [facility] Start: 11-23-2022 Diabetic foot examination Diabetic Foot Exam [facility] Start: 11-20-2022 Hepatitis B screening URINE ALBUMIN:CREATININE RATIO [facility] Start: 11-20-2022 Hepatitis B surface antibody level LDL CHOLESTEROL [facility] Start: 11-20-2022 SERUM CREATININE SERUM CREATININE [facility] Start: 11-16-2022 Hemoglobin A1c/Hemoglobin.total in Blood HBA1C [facility] Start: 11-11-2022 Influenza vaccination INFLUENZA (#1) [facility] Comment on above: Postponed from 01/13/2022 (Declined at t his time) Start: 05-26-2022 End: 07-26-2022 CBC panel - Blood by Automated count CBC Lab Routine Essential hypertension, benign Stage 3b chronic kidney disease (HCC) Expected: 05/26/2022 (Approximate), Expires: 07/26/[address] [facility] Work Phone: Comment on above: Expected: 05/26/2022 (Approximate), Expi res: 07/26/2022 Start: 05-26-2022 End: 07-26-2022 Comprehensive metabolic 2000 panel - Serum or Plasma COMP METABOLIC PANEL Lab Routine Type 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, unspecified CKD stage, 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 insulin use (HCC) Essential hypertension, benign Hyperlipidemia, unspecified hyperlipidemia type Stage 3b chronic kidney disease (HCC) Expected: 05/26/2022 (Approximate), Expires: 07/26/[address] [facility] Work Phone: Comment on above: Expected: 05/26/2022 (Approximate), Expi res: 07/26/2022 Start: 05-26-2022 End: 07-26-2022 Hemoglobin A1c in Blood HGB A1C Lab Routine Type 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, unspecified CKD stage, 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 insulin use (HCC) Expected: 05/26/2022 (Approximate), Expires: 07/26/[address] [facility] Work Phone: Comment on above: Expected: 05/26/2022 (Approximate), Expi res: 07/26/2022 Start: 05-26-2022 End: 07-26-2022 Lipid 1996 panel - Serum or Plasma LIPID PANEL BASIC Lab Routine Essential hypertension, benign Hyperlipidemia, unspecified hyperlipidemia type Expected: 05/26/2022 (Approximate), Expires: 07/26/[address] [facility] Work Phone: Comment on above: Expected: 05/26/2022 (Approximate), Expi res: 07/26/2022 Start: 05-26-2022 End: 07-26-2022 Thyrotropin [Units/volume] in Serum or Plasma TSH BLD Lab Routine Hypothyroidism, unspecified type Expected: 05/26/2022 (Approximate), Expires: 07/26/[address] [facility] Work Phone: Comment on above: Expected: 05/26/2022 (Approximate), Expi res: 07/26/2022 Start: 05-23-2022 Hemoglobin A1c/Hemoglobin.total in Blood HBA1C [facility] Start: 05-18-2022 ANNUAL PCP TEAM CHRONIC DISEASE VISIT ANNUAL PCP TEAM CHRONIC DISEASE VISIT [facility] Start: 05-17-2022 Hepatitis B surface antibody level LDL CHOLESTEROL [facility] Start: 05-17-2022 SERUM CREATININE SERUM CREATININE [facility] Start: 05-15-2022 ADVANCE DIRECTIVE DISCUSSION ADVANCE DIRECTIVE DISCUSSION [facility] Start: 01-13-2022 Influenza vaccination [facility] Start: 01-11-2022 Hepatitis C antibody, confirmatory test DILATED RETINAL EXAM [facility] Start: 11-14-2021 Hemoglobin A1c/Hemoglobin.total in Blood HBA1C [facility] Start: 11-06-2021 Screening for malignant neoplasm of breast [facility] Start: 11-05-2021 3 comp foot exam completed [facility] Start: 11-05-2021 Adult depression screening assessment DEPRESSION SCREENING [facility] Start: 11-04-2021 Hepatitis B screening URINE ALBUMIN:CREATININE RATIO [facility] Start: 10-15-2021 Hepa vaccine adult dose for intramuscular use HEPATITIS A VACCINE ADULT IM Immunization/Injection Routine Need for vaccination Expected: 10/15/[address] [facility] Work Phone: Comment on above: Expected: 10/15/2021 Start: 10-15-2021 Tdap vaccine 7 yrs/> im TDAP VACCINE AGE 7+ IM Immunization/Injection Routine Need for vaccination Expected: 10/15/[address] [facility] Work Phone: Comment on above: Expected: 10/15/2021 Start: 05-15-2021 ADVANCE DIRECTIVE DISCUSSION ADVANCE DIRECTIVE DISCUSSION [facility] Start: 05-15-2021 DEPRESSION ASSESSMENT DEPRESSION ASSESSMENT [facility] Start: 10-23-2020 PNEUMOCOCCAL: 65+ (2 - PPSV23 if available, else PCV20) PNEUMOCOCCAL: 65+ (2 - PPSV23 if available, else PCV20) [facility] Start: 10-23-2020 PNEUMOCOCCAL: 65+ (2 - PPSV23 or PCV20) PNEUMOCOCCAL: 65+ (2 - PPSV23 or PCV20) [facility] Start: 10-16-2020 HEMOGLOBIN/HEMATOCRIT HEMOGLOBIN/HEMATOCRIT [facility] Start: 09-17-2020 COVID-19 VACCINE (2 - Booster for Alyssa series) COVID-19 VACCINE (2 - Booster for Alyssa series) [facility] Start: 12-19-2019 Pneumococcal vaccination [facility] Start: 12-19-2019 Pneumococcal Vaccine: 65+ (2 - PPSV23 or PCV20) Pneumococcal Vaccine: 65+ (2 - PPSV23 or PCV20) [facility] Start: 12-19-2019 PNEUMOCOCCAL: 65+ (2 - PPSV23 or PCV20) PNEUMOCOCCAL: 65+ (2 - PPSV23 or PCV20) [facility] Start: 11-08-2019 Screening for malignant neoplasm of colon [facility] Start: 10-26-2019 [facility] Start: 01-13-2019 Influenza vaccination Flu vaccine (#1) [place], [place] Start: 12-23-2018 Annual Wellness Visit (AWV) Annual Wellness Visit (AWV) [place] Start: 2009 DEXA (modify frequency per FRAX score) DEXA (modify frequency per FRAX score) [place] Start: 2009 Pneumococcal 65+ years Vaccine (1 of 1 - PPSV23) Pneumococcal 65+ years Vaccine (1 of 1 - PPSV23) [place] Start: 2009 Pneumococcal 65+ years Vaccine (1 of 2 - PCV13) Pneumococcal 65+ years Vaccine (1 of 2 - PCV13) [place] Start: 10-26-2007 Annual Wellness Visit (AWV) Annual Wellness Visit (AWV) [place] Start: 2004 Hepatitis B Vaccine (1 of 3 - Risk 3-dose series) Hepatitis B Vaccine (1 of 3 - Risk 3-dose series) [facility] Start: 2004 RSV Vaccine (1 - 1-dose 60+ series) RSV Vaccine (1 - 1-dose 60+ series) [facility] Start: 10-26-1999 Screening for osteoporosis DEXA (modify frequency per FRAX score) [place] Start: 1994 Breast cancer screen Breast cancer screen [place] Start: 1994 Colon cancer screen colonoscopy Colon cancer screen colonoscopy [place], [place] Start: 1994 Screening for malignant neoplasm of breast Breast cancer screen [place] Start: 1994 Screening for malignant neoplasm of colon Colon cancer screen colonoscopy [place] Start: 1994 Shingles Vaccine (1 of 2) Shingles Vaccine (1 of 2) [place] Start: 1984 Lipid screen Lipid screen [place] Start: 1965 Screening for malignant neoplasm of cervix [facility] Start: 10-26-1963 DTaP/Tdap/Td vaccine (1 - Tdap) DTaP/Tdap/Td vaccine (1 - Tdap) [place] Start: 10-26-1963 Third diphtheria, tetanus and acellular pertussis (DTaP) vaccination [facility] Start: 10-26-1963 Urine microalbumin profile [facility] Start: 1962 BP CONTROLLED (<130/80) BP CONTROLLED (<130/80) [facility] Start: 1962 HEPATITIS C SCREENING HEPATITIS C SCREENING [facility] Start: 1954 Lipid panel Lipid screen [place], [place] Start: 1944 Creatinine measurement Creatinine monitoring [place], [place] Start: 1944 Creatinine monitoring Creatinine monitoring [place], [place] Start: 1944 Hepatitis C screen Hepatitis C screen [place], [place] Start: 1944 Hepatitis C screening [facility] Start: 1944 Potassium monitoring Potassium monitoring [place], [place] Start: 1944 Screening for osteoporosis [facility] Start: 1944 Tetanus vaccination [facility] End: 01-09-2019 Blood glucose - POCT Blood glucose - POCT Point of Care Testing Routine One Time for 1 Occurrences starting 01/09/2019 until 01/09/2019 [place] Comment on above: One Time for 1 Occurrences starting 12/14 until 01/09/2019 ECG COMPLETE [facility] Comment on above: Ordered: 05/31/2024 End: 05-31-2025 Echocardiography ECHO Cardiology Routine Atrial fibrillation, unspecified type (HCC) 1 Occurrences starting 05/31/2024 until 05/31/2025 [facility] Comment on above: 1 Occurrences starting 05/31/2024 until 05/31/2025 Patient referral [facility] Work Phone: End: 01-09-2019 Pulse Oximetry Spot Check Pulse Oximetry Spot Check Respiratory Care Routine One Time for 1 Occurrences starting 01/09/2019 until 01/09/2019 [facility] [place] Comment on above: One Time for 1 Occurrences starting 12/14 until 01/09/2019 End: 08-02-2024 PV FLUOROSCOPY OR [facility] End: 08-02-2024 Standard ECG [facility] Immunizations Immunization Date Immunization Notes Care Provider Fa cility 07-23-2020 SARS-CoV-2 (COVID-19 ) Ad26 vaccine, recombinant SILVINO HA DO [employer] Comment on above: Result Comment: 2024: [id number] 02-27-2020 influenza, high dose seasonal, preservative-free Kameron Caruso MD Work Phone: [facility] 02-27-2020 influenza virus vaccine, unspecified formulation Kameron Carsuo MD Work Phone: [employer] 10-24-2019 pneumococcal conjuga te vaccine, 13 valent Kameron Caruso MD Work Phone: [facility] 10-24-2019 zoster vaccine recombinant Kameron Caruso MD Work Phone: [facility] 07-25-2019 influenza virus vaccine, unspecified formulation SILVINO HA DO [employer] 07-25-2019 influenza, seasonal, injectable Kameron Caruso MD Work Phone: [facility] 07-25-2019 zoster vaccine recombinant Kameron Caruso MD Work Phone: [facility] 04-13-2015 influenza virus vaccine, unspecified formulation SILVINO HA DO [employer] 05-01-2014 influenza virus vaccine, unspecified formulation SILVINO HA DO [employer] 05-01-2014 influenza, high dose seasonal, preservative-free Kameron Caruso MD Work Phone: [facility] 02-22-2012 influenza virus vaccine, unspecified formulation Kameron Caruso MD Work Phone: [facility] Work Phone: 03-19-2007 influenza virus vaccine, unspecified formulation Kameron Caruso MD Work Phone: [facility] Work Phone: Payers Date Payer Category Payer Medicare [id number] 2024 Unknown [id number] 2024 Self-pay 2018 Medicare [employer] [facility] xxxxxxxxxxx 2018-Present [phone] [address] [place] [address] xxxxxxxxxxx [id number] 2018 Unknown [id number] 2013 Medicare [employer] [place] [id number] 2013-Present [phone] [address] [place] [address] [facility] [facility] [id number] .[id number] 2013 Medicare 1.2.840.011307. 1.13.159.2 .7.3.434138.315 2013 Medicare (Managed Care) 1.2. 840.408324.1.13.159.2 .7.9.806949.74324.315 2013 Medicare [id number] 1945 Unknown [id number] 2.16.840.1.316347.3.579.2 .627 1945 Unknown [id number] 2.16.840.1.338236.3.579.2 .732 1945 Unknown [id number] 2.16.840.1.495789.3.579.2 .627 1945 Unknown [id number] 2.16.840.1.212023.3.579.2 .594 1945 Unknown [id number] 2.16.840.1.217764.3.579.2 .594 Unknown [id number] 2.16.840.1.420292.3.579.2 .462 Unknown [id number] 2.16.840.1.030124.3.579.2 .462 Unknown [id number] 2.16.840.1.692485.3.579.2 .462 Unknown [id number] 2.16.840.1.466276.3.579.2 .462 Unknown [id number] 2.16.840.1.056285.3.579.2 .462 Unknown [id number] 2.16.840.1.045794.3.579.2 .462 Unknown [id number] 2.16.840.1.517699.3.579.2 .462 Unknown [id number] 2.16.840.1.663903.3.579.2 .462 Unknown [id number] 2.16.840.1.582014.3.579.2 .462 Unknown [id number] 2.16.840.1.097506.3.579.2 .462 Unknown [id number] 2.16.840.1.088953.3.579.2 .462 Unknown [id number] 2.16.840.1.166510.3.579.2 .462 Unknown [id number] 2.16.840.1.287138.3.579.2 .462 Unknown [id number] 2.16.840.1.593120.3.579.2 .462 Unknown [id number] 2.16.840.1.417156.3.579.2 .462 Unknown [id number] 2.16.840.1.510468.3.579.2 .462 Unknown [id number] 2.16.840.1.967753.3.579.2 .462 Unknown [id number] 2.16.840.1.894533.3.579.2 .462 Unknown [id number] 2.16.840.1.463565.3.579.2 .462 Unknown [id number] 2.16.840.1.348189.3.579.2 .462 Unknown [id number] 2.16.840.1.347331.3.579.2 .462 Unknown [id number] 2.16.840.1.281691.3.579.2 .462 Unknown [id number] 2.16.840.1.660015.3.579.2 .462 Unknown [id number] 2.16.840.1.537338.3.579.2 .462 Unknown [id number] 2.16.840.1.740637.3.579.2 .462 Unknown [id number] 2.16.840.1.719891.3.579.2 .462 Unknown [id number] 2.16.840.1.797366.3.579.2 .462 Unknown [id number] 2.16.840.1.345151.3.579.2 .462 Unknown [id number] 2.16.840.1.090859.3.579.2 .462 Unknown [id number] 2.16.840.1.422431.3.579.2 .462 Social History Date Type Detail Facility Start: 01-09-2019 End: 08-02-2024 Tobacco smoking status KSIS Never smoker [facility] Start: 01-09-2019 End: 11-25-2022 Alcohol intake Never [facility] Work Phone: Start: 12-24-2018 History SDOH Alcohol Frequency 1 [place], [place] Start: 1945 Sex Assigned At Not on file [facility] OHEMILI Start: 10-16-2019 Alcohol intake Lifetime non-d hortencia (finding) [place] Exposure to SARS-CoV -2 (event) Unable to assess [facility] EMILI Start: 05-18-2021 End: 06-26-2024 Alcohol intake Current non-drinker of alcohol (finding) [facility] Start: 11-13-2021 End: 03-02-2022 Exposure to SARS-CoV-2 (event) Not sure [facility] Start: 02-02-2011 End: 03-02-2022 Tobacco use and exposure Smokeless tobacco non-user [facility] Start: 11-25-2022 End: 11-28-2023 History of Social function [facility] Work Phone: Adult Depression Screening Assessment 0 [facility] Work Phone: Start: 06-22-2005 End: 08-02-2024 Sex Female (finding) [facility] Start: 1945 Sex Assigned At Female [facility] Sexual Orientation [facility] Medical Equipment Procedure Code Equipment Code Equipment Original Text Equipment Identifier Dates [id number], [id number], [id number] Start: 11-30-2020 End: 04-08-2023 Comment on above: [...] Functional Status Room check performed Gillian anny Garcia 09-09-2024 Functional Status [facility] Functional Status Skin Care Prev entative Intervention(s) [facility] Functional Status [facility] Knapp [facility] 09-08-2024 Functional Status [facility] Wo odlan 09-06-2024 Functional Status 11pm-7am [facility] 09-06-2024 Functional Status Antiembolism S tocking On/Re-applied bilateral knee high [facility] 09-05-2024 Functional Status Oral Care Maximum wilfred cho [facility] 09-05-2024 Functional Status [facility] 09-05-2024 Functional Status Done [facility] 09-04-2024 Functional Status [facility] 09-04-2024 Functional Status [facility] 09-03-2024 Functional Status NPO Status Maintained A kai [place] 09-03-2024 Functional Status None [facility] Wo [facility] 09-03-2024 Functional Status [facility] odel cerrito 08-29-2024 Functional Status Tyler odel cerrito 08-29-2024 Functional Status [facility] odel cerrito 08-27-2024 Functional Status Orthotics, Dev ice Worn Per Schedule Yes [facility] 08-27-2024 Functional Status Tyler odel cerrito 08-26-2024 Functional Status [facility] odel cerrito 08-23-2024 Functional Status Tyler odel cerrito 08-23-2024 Functional Status Breakfast Percent 25 [facility] 08-20-2024 Functional Status Tyler odel cerrito 08-19-2024 Functional Status Tyler odel cerrito 08-16-2024 Functional Status Single level h ome, basement laundry [facility] 08-16-2024 Functional Status Outside Stairs Rail Rail on left going up [facility] 08-15-2024 Functional Status Sensory Defici ts Speech deficit [facility] 10-14-2014 Are you deaf, or do you have serious difficulty hearing No [facility] 10-14-2014 Are you blind, or do you have serious difficulty seeing, even when wearing glasses No [facility] 10-14-2014 Do you have serious difficulty walking or climbing stairs No [facility] 10-14-2014 Do you have difficul ty dressing or bathing No [facility] 10-14-2014 Because of a physica l, mental, or emotional condition, do you have difficulty doing errands alone such as visiting a physician's office or shopping No [facility] Mental Status Date Assessment Result Facility 09-09-2024 Mental Status Does not interact [facility] Bernardo stahl 09-08-2024 Mental Status [facility] Tariq gregory 09-08-2024 Mental Status [facility] Tariq gregory 08-02-2024 Cognitive function Awake;Alert;F ollows Commands [facility] Work Phone: 10-14-2014 Because of a physica l, mental, or emotional condition, do you have serious difficulty concentrating, remembering, or making decisions No [facility] Clinical Notes 11-03-2020 to 10-02-2024 Note Date & Type Note Facility 10-02-2024 Evaluation note Diagnosis Onset Date Resolution Acute ischemic right MCA stroke acute October 02, 2024 9:29am Essential hypertension acute 2024 9:29am Hyperlipidemia acute October 02, 2024 9:29am Paroxysmal atrial fibrillation with RVR acute October 02, 2024 9:29am [facility] Work Phone: [phone]) [phone] Note Discharge Instructions Thank you for allowing [...] KAMERON CARUSO MD When:Within 3-7 days Where:[address] [place] [address]- Additional Information: Please schedule follow up PCP appointment for after discharge from SNF, Bring discharge instructions with you Follow Up with RIMMA POWERS MD When:10/08/2024 04:00 PM EDT Where:[facility] ([address], [place]) Additional Information: Neurosurgeon The Following Activity and [...] standard right Seat cushion, 99 month(s), Tyler [id number], 09/02/24 8:22:00 EDT Transfer of Care Wound [...] depending on your insurance coverage. Check with yourDOCUSYS company about what is covered. Keeping follow-up [...] these with your friends and family members. BE FAST is an easy way to remember the [...] if you have any of these symptoms. BE FAST is an easy way to remember the main warning signs of a stroke. This information is not intended to replace advice given to you by your health care provider. Make sure you discuss any questions you have with your health care provider. Document Released: 08/04/2017 Document Revised: 05/04/2018 Document Reviewed: 08/04/2017 [employer] Patient Education 2020 [employer]. Additional Information VACCINATE! IT SAVES LIVES! Members of the community who have not yet received the COVID-19 vaccine and would like to receive it can visit one of [facility] vaccine clinics. There are many vaccine clinic locations within the [facility]. For locations and available times, please visit [email or web address].gov/. It is important to note that some COVID mobile vaccine clinics are held outdoors and may be canceled in rainy or stormy conditions. To learn more about pediatric vaccinations (ages 5-11), we invite you to visit the [facility] webpage. https://www.[email or web address].org/pages/1343-Gxjsu-Xpmtcyzrbum-Ohryyazvhp-Dcgpw-Nfu stions.htmlTo learn more about the COVID-19 vaccine, we invite you to visit the CDC website for a list of frequently asked questions.https://www.cdc.gov/coronavirus/2019-ncov/vaccines/faq.html [facility] Patient Portal Access Instructions: Stay connected with your healthcare team and access your personal medical information anytime with the [facility] Patient Portal. Please follow the directions below to create your [facility] account: 1.Access the email account you provided upon registration to the hospital/physician office.2.Look for an invitation email from [facility].3.Open the email and access the invitation link: AcceptInvitation to [facility].4.Fill in the required richards to create your account. To access your account, visit [email or web address]. Click the blue button labeled Access Patient Portal and then log in with the username [...] who you will allowto register on the [facility] for access to your information. You can also access the [facility] Patient Portal on the [facility] dahlia. Simply click on Patient Portal and then log into your account. If you would like to receive a full copy of your medical records, please contact the [facility] Medical Records Department by calling [phone], Monday through Monday between 8 a.m. and [...] Call your local pharmacy or go to [email or web address]/[email or web address] to find one close to you.3.Make use of household items: Use cat litter or old coffee grounds to dispose medications if other options arenot available. Mix your drugs with these household products, seal them in an airtight container andthrow it into the garbage. Call [facility]: [phone] to be sure your drugs can be [...] aware that I should contact my doctor. Patient/Loading Inspector Signature: Date/Time: Relationship to Patient: Witness Name/Signature: Date/Time: Tyler [id number] Note Discharge Instructions Thank you for allowing [...] KAMERON CARUSO MD When:Within 3-7 days Where:[address] [place] [address]- Additional Information: Please schedule follow up PCP appointment for after discharge from SNF, Bring discharge instructions with you Follow Up with RIMMA POWERS MD When:10/08/2024 04:00 PM EDT Where:[facility] ([address], [place]) Additional Information: Neurosurgeon The Following Activity and [...] standard right Seat cushion, 99 month(s), Tyler [phone], 09/02/24 8:22:00 EDT Transfer of Care Wound [...] depending on your insurance coverage. Check with yourDOCUSYS company about what is covered. Keeping follow-up [...] these with your friends and family members. BE FAST is an easy way to remember the [...] if you have any of these symptoms. BE FAST is an easy way to remember the main warning signs of a stroke. This information is not intended to replace advice given to you by your health care provider. Make sure you discuss any questions you have with your health care provider. Document Released: 08/04/2017 Document Revised: 05/04/2018 Document Reviewed: 08/04/2017 [employer] Patient Education 2020 [employer]. Additional Information VACCINATE! IT SAVES LIVES! Members of the community who have not yet received the COVID-19 vaccine and would like to receive it can visit one of [facility] vaccine clinics. There are many vaccine clinic locations within the [facility]. For locations and available times, please visit [email or web address].gov/. It is important to note that some COVID mobile vaccine clinics are held outdoors and may be canceled in rainy or stormy conditions. To learn more about pediatric vaccinations (ages 5-11), we invite you to visit the [facility] webpage. https://www.[facility].org/pages/0835-Hzfig-Viodqywgwra-Xxytpxhdta-Mxmvy-Bug stions.htmlTo learn more about the COVID-19 vaccine, we invite you to visit the CDC website for a list of frequently asked questions.https://www.cdc.gov/coronavirus/2019-ncov/vaccines/faq.html [facility] Patient Portal Access Instructions: Stay connected with your healthcare team and access your personal medical information anytime with the [facility] Patient Portal. Please follow the directions below to create your [facility] account: 1.Access the email account you provided upon registration to the hospital/physician office.2.Look for an invitation email from [facility].3.Open the email and access the invitation link: [facility]Invitation to [facility].4.Fill in the required richards to create your account. To access your account, visit [email or web address]. Click the blue button labeled Access Patient Portal and then log in with the username [...] who you will allowto register on the [facility] [employer] Patient Portal for access to your information. You can also access the [facility] Patient Portal on the [facility] dahlia. Simply click on Patient Portal and then log into your account. If you would like to receive a full copy of your medical records, please contact the [facility] Medical Records Department by calling [phone], Monday through Monday between 8 a.m. and [...] Call your local pharmacy or go to http://bit.ly/9O5Hs4l to find one close to you.3.Make use of household items: Use cat litter or old coffee grounds to dispose medications if other options arenot available. Mix your drugs with these household products, seal them in an airtight container andthrow it into the garbage. Call [facility]: [phone] to be sure your drugs can be [...] aware that I should contact my doctor. Patient/Loading Inspector Signature: Date/Time: Relationship to Patient: Witness Name/Signature: Date/Time: Tyler [id number] Physical medicine and rehab Discharge summary Date [...] in discharge valuation. She was [facility] stay 08/02 - 08/15 who has a history of CAD, DM2, atrial fibrillation and hypertension whopresented to the ER after noting left-sided weakness and slurred speech. Originally presented to [facility] where CT head was obtained showing [...] self-care assistance needs decision made to request shelter facility. Approval is requested. 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 [id number] Microgram PEG tube once a day. metoprolol [...] KAMERON CARUSO MD When:Within 3-7 days Where:[address] [place] [address]- Additional Information: Please schedule follow up PCP appointment for after discharge from SNF, Bring discharge instructions with you Follow Up with RIMMA POWERS MD When:10/08/2024 04:00 PM EDT Where:[facility] ([address], [place]) Additional Information: Neurosurgeon Follow Up Appointments No qualifying data available. Follow Up Labs/Studies Discharge Labs No Follow-up Labs Discharge Studies No Follow-up Studies Discharge Diet No qualifying data available. Discharge Activity No qualifying data available. Condition on Discharge Stable Discharge Disposition correction facility Information Provided To Patient and family Time Spent Greater than 35 minutes Digitally Signed by SILVINO HA DO on 09/09/2024 01:46 PM Tyler [id number] Nurse Progress note Nursing GG Entered On: 09/09/2024 10:55 EDT Performed On: 09/09/2024 10:55 EDT by Abigail Rodas RN Nursing GG's OT GG Grid Eating : Not Completed Abigail Rodas RN - 09/09/2024 10:55 EDT Digitally Signed by Abigail Rodas RN on 09/09/2024 10:55 AM [place] [id number] Nurse Progress note Nursing GG Entered On: 09/08/2024 17:39 EDT Performed On: 09/08/2024 17:39 EDT by Rob Alarcon RN Nursing GG's OT GG Grid Eating : Not Completed Oral Hygiene : Not Completed Toilet Hygiene : Substantial/Maximal Assistance Toilet Transfer : Substantial/Maximal Assistance Rob Alarcon RN - 09/08/2024 17:39 EDT Digitally Signed by Rob Alarcon RN on 09/08/2024 05:39 PM [facility] Nurse Progress note Pt had 250ml residual, 12:30pm bolus was held! Digitally Signed by Rob Alarcon RN on 09/08/2024 12:47 PM [place] [id number] Physical medicine and rehab Progress note Rehab [...] and slurred speech. She originally presented to [facility] with CT of the head was obtained showed no acute hemorrhage or large territory stroke. CTA showed mid right M1 occlusion however patient was not a TNK candidate. She was then transferred to a [facility] for further management. CT of head [...] 80 mg 1 tab(s), PEG, Daily balsam [place]-castor oil topical 87 mg-788 mg/g oint 60g [...] Rate64(SEP 05 16:46)64(SEP 05 16:46)85(SEP 05 09:40) JZY484(SEP 05 16:36)138(SEP 05 16:36)H 158(SEP 05 09:52) [...] HA DO on 09/06/2024 12:34 PM Tyler [id number] Hospital Discharge instructions Patient Education 09/05/2024 14:15:00 [...] depending on your insurance coverage. Check with yourDOCUSYS company about what is covered. Keeping follow-up [...] these with your friends and family members. BE FAST is an easy way to remember the [...] if you have any of these symptoms. BE FAST is an easy way to remember the main warning signs of a stroke. This information is not intended to replace advice given to you by your health care provider. Make sure you discuss any questions you have with your health care provider. Document Released: 08/04/2017 Document Revised: 05/04/2018 Document Reviewed: 08/04/2017 [employer] Patient Education 2020 [employer]. Follow Up Care 08/15/2024 08:51:25 With:RIMMA POWERS MD Address: [facility] ([address], [place]) When:10/08/2024 16:00:00 Comments:Neurosurgeon With:JONNIE BANSAL MD Address: [facility] When: Unknown Comments:GI, No appointment needed until PEG is ready to be removed or concerns arise With:KAMERON CARUSO MD Address: [address] [place] [address]- When:3-7 days Comments:Please schedule follow up PCP appointment for after discharge from SNF, Bring discharge instructions with you Tyler Warnern 04-24-2025 Note Subjective Patient seen this [...] less than 3 seconds. Ongoing hemiparesis VITALS KllwiwUhyySBVvujpFFJxO6TWS1YrbnUh(kg) 09/05 09:5236.3--022483YC 09/05 09:40----85----RA 09/04 23:3236.6--881352FR 09/04 21:2436.5--974020FN 09/04 16:01----72----RA 24 Hr Tmax: 36.6 at [...] SBP (mmHg) < 110, 1st dose location: [facility], 1, 08/15/24 17:09:00 EDT Active PRN Meds: [...] dose location: [facility], 0, 08/15/24 1... glucose (Dextrose 50% IV [...] None Problems (6) CVA (cerebral vascular accident) (052447852) Diabetes mellitus (653878137) Dysphagia (71484412) Hyperlipidemia (68884613) Hypertension (5477160454) Osteoarthritis (3794040613) ASSESSMENT/PLAN: Right basal ganglia hemorrhage, status post thrombectomy with revascularization follow-up appointment with neurosurgery on 10/08. Continue work with physical and Occupational Therapy with goal to return home at discharge. reports that referrals have been sent to shelter facilities yesterday. Currently has 4 options in [...] NEWMAN APRN-GARRETT on 09/05/2024 04:55 PM Tyler GarciaVyuweawv18-04-6236 Physical medicine and rehab Progress note Subjective [...] area Neuro: Left upper extremity hemiparesis VITALS JlcxdlOmscGJKvuswMORoM8CMY3McxeGs(kg) 09/04 23:3236.6--555260IB 09/04 21:2436.5--640143VE 09/04 16:01----72----RA 09/04 12:10--------97RA 09/04 10:5435.9--151431IM 24 Hr Tmax: 36.6 at 09/04 23:32 [...] None Problems (6) CVA (cerebral vascular accident) (485658097) Diabetes mellitus (009136929) Dysphagia (62179808) Hyperlipidemia (43638220) Hypertension (3133843222) Osteoarthritis (4573173378) ASSESSMENT/PLAN: Acute right basal ganglia hemorrhage with [...] NANDO HUTTON DO on 09/05/2024 10:12 AM [facility]4604 Physical medicine and rehab Progress note Rehab [...] and slurred speech. She originally presented to [facility] with CT of the head was obtained showed no acute hemorrhage or large territory stroke. CTA showed mid right M1 occlusion however patient was not a TNK candidate. She was then transferred to a [facility] for further management. CT of head [...] Rate64(SEP 03 15:52)64(SEP 03 15:52)90(SEP 03 08:28) QYZ491(SEP 04 05:38)112(SEP 04 05:38)127(SEP 03 08:00) DBP70(SEP [...] HA DO on 09/04/2024 11:55 AM Tyler GarciaDzbwadjf62-11-8395 Note Subjective Patient states she is doing [...] area Neuro: Left upper extremity hemiparesis VITALS OczijgXxjfHJNzgloQHMpB3SBB4SvffWd(kg) 09/03 21:4136.4--242576SM 09/03 15:52----64---- 09/03 08:46 09/03 08:28----90---- 09/03 08:0036.4--267196DL 24 Hr Tmax: 36.4 at 09/03 21:41 [...] tab(s), PEG, Daily, 08/15/24 17:09:00 EDT balsam [place]-castor oil topical (Venelex 788 mg-87 mg/g topical [...] None Problems (6) CVA (cerebral vascular accident) (342094800) Diabetes mellitus (306512498) Dysphagia (44370943) Hyperlipidemia (29970241) Hypertension (3624663269) Osteoarthritis (3364033753) ASSESSMENT/PLAN: Acute right basal ganglia hemorrhage with [...] NANDO HUTTON DO on 09/05/2024 08:57 AM [facility]9348 Note Subjective Patient states that she is [...] area Neuro: Left upper extremity hemiparesis VITALS KvgavqAdazOIRrghsPLAkA5OPH0RafzLm(kg) 09/03 00:2636.3--046361WT 09/02 21:5136.2--591821KF 09/02 16:56----88--98RA 09/02 10:40 RA 09/02 09:0936.0--054616MO 24 Hr Tmax: 37.0 at 09/02 05:55 [...] tab(s), PEG, Daily, 08/15/24 17:09:00 EDT balsam [place]-castor oil topical (Venelex 788 mg-87 mg/g topical [...] SBP (mmHg) < 110, 1st dose location: [facility], 1, 08/15/24 17:09:00 EDT oxybutynin (oxybutynin 5 [...] 2 minutes, REPEAT x1., 1st dose location: [facility], 0, 08/15/24 1... glucose (Dextrose 50% IV [...] None Problems (6) CVA (cerebral vascular accident) (951786822) Diabetes mellitus (625013478) Dysphagia (17122191) Hyperlipidemia (69575151) Hypertension (1103839152) Osteoarthritis (2773318130) ASSESSMENT/PLAN: Acute right basal ganglia hemorrhage with [...] HUTTON DO on 09/05/2024 08:57 AM Tyler DyeRbzytvbm51-33-5926 Note* Exam Date Time Procedure Performing Provider Status 09/02/24 2:[address] Head or Brain w/o Contrast Brenda MCCLELLAN MD; Auth (Verified) [id number] ORIGINAL HISTORY: Lethargy COMPARISON: No TECHNIQUE: Routine [...] AM EDT Marya with [facility] notified. [facility]04-18-2025 Miscellaneous Notes* Telephone Encounter - Fouzia Miller LPN - 08/30/2024 10:09 AM EDT Marya with [facility] notified. * Telephone Encounter - Mj Glover APRN.CNP - 08/30/2024 9:19 AM EDT Please let HH know that Dr. Caruso's team will follow orders. Okay to proceed. Mj Glover APRN.GAUGE INSPECTOR * Telephone Encounter - Jaiden Paulino RN - 08/30/2024 9:07 AM EDT Marya- [facility] reports patient was in [facility] with dx: stroke, [facility]. [facility] to home with [facility] SN PT OT ST & HHAide. Asking if pcp agreeable to follow for C. Please phone Marya with verbal: [phone] [facility] in [facility] Telephone encounter Note * Telephone Encounter - Mj Glover APRN.CNP - 08/30/2024 9:19 AM EDT Please let know that Dr. Caruso's team will follow orders. Okay to proceed. Mj Glover APRN.CNP [facility]04-18-[facility] Telephone encounter Note* Telephone Encounter - Jaiden Paulino RN - 08/30/2024 9:07 AM EDT [facility] reports patient was in [facility] with dx: stroke, and transferred [facility]. Pt will be discharged from [facility] on 09/07/24 to home with [facility] SN PT OT ST & HHAide. Asking if pcp agreeable to follow for C. Please phone Marya with verbal: [phone] [facility]04-[facility]25 Note REFERRING PHYSICIAN: Silvino Ha DO. CONSULTING PSYCHOLOGIST: Matthew Gibson, PhD. REASON FOR REFERRAL: Neuropsychological exam. HISTORY OF PRESENT ILLNESS: Ms. Acuna is a 78-year-old right-handed white female admitted to [facility] from [facility] on 08/15/2024 after developing left-sided weakness and slurred speech. Initially seen at [facility] where brain CT was negative.CTA then [...] mild concussions suffered after a career in [employer] No residual deficits reported. No other FUND ACCOUNTANT injuries or illnesses. MENTAL HEALTH HISTORY: No [...] of NPO. and Mrs. Acuna live in [place]. 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 She has a high school diploma from her hometown in [place], [place]. TEST RESULTS: I used the Cognistat, [...] be determined. MATTHEW GIBSON, PhD GM/NTS JOB#: [id number] DICTATION ID#: [id number] Digitally Signed by MATTHEW GIBSON PhD on 08/27/2024 08:21 AM [facility]69 Note* Exam Date Time Procedure Performing Provider Status 08/25/24 1:46 PM XR Hand and Wrist 6 Views Left ROSANNE S NINFA W DO; Auth (Verified) [id number] ORIGINAL EXAMINATION: 3 XRAY VIEWS OF THE [...] Views Left JAMAR DUNNE DO; Auth (Verified) [id number] ORIGINAL EXAMINATION: TWO XRAY VIEWS OF THE [...] Views Left JAMAR DUNNE DO; Auth (Verified) [id number] ORIGINAL EXAMINATION: TWO XRAY VIEWS OF THE [...] 1 View Contributor_system, FUJ I; Auth (Verified) [id number] ORIGINAL EXAMINATION: ONE XRAY VIEW OF THE [...] Plan noteExtracted from: Title:Clinical Document Author:EZEQUIEL HUSTON RN-GAUGE INSPECTOR Date:08/16/24 Acute Inpatient Rehab Histor y [...] noted to home in inpatient rehab from [facility] stay 08/02 - 08/15 who is past medical history of coronary artery disease, diabetes mellitus type 2, atrial relation, hypertension, osteoarthritis, and hyperlipidemia who presented to the emergency room with noted left-sided weakness and slurred speech. She originally presented to [facility] with CT of the head was obtained showed no acute hemorrhage or large territory stroke. CTA showed mid right M1 occlusion however patient was not a TNK candidate. She was then transferred to a [facility] for further management. CT of head [...] feedings. Patient deemed medically stable transferred to [facility] inpatient rehab unit for physical and occupational [...] with spouse, first- floor set up. Primary Tube Blower: Self. Safe place to go: Yes. Lives [...] Rate80(AUG 15 20:06)80(AUG 15 20:06)80(AUG 15 20:06) PHY082(AUG 16 00:03)128(AUG 16 00:03)140(AUG 15 17:47) DBP76(AUG 16 00:03)76(AUG 16 00:03)80(AUG 15 17:47) 36hr Labs 08/15 1805 Blood Glucose, [id number] Blood Glucose, [id number] Blood Glucose TSee Flowsheet Assessment/Plan Debility and [...] it is both accurate and complete. Tyler Dyelawn 04-04-2025 Physical medicine and rehab Consult note INPATIENT REHAB MEDICAL CONSULT DATE OF ADMISSION: 08/16/2024 CC: Acute right basal hemorrhage HISTORY OF PRESENT ILLNESS: This is a 78-year-old female admitted to [facility] inpatient rehab unit from [facility] stay 08/02 - 08/15 who has a history of CAD, DM2, atrial fibrillation and hypertension who presented to the ER after notingleft-sided weakness and slurred speech. Originally presented to [facility] where CT head was obtained showing [...] was deemed medically stable and transferred to [facility] inpatient re[facility] unit for physical and occasional [...] Rate80(AUG 15 20:06)80(AUG 15 20:06)80(AUG 15 20:06) SPE143(AUG 16 00:03)128(AUG 16 00:03)140(AUG 15 17:47) DBP76(AUG [...] reviewed. 36hr Labs 08/15 1805 Blood Glucose, Aewhotcsp254R Blood Glucose, Fqjetguca910S Blood Glucose TSee Flowsheet ASSESSMENT AND PLAN: [...] will follow during acute rehabilitation stay at [facility] with the goal [...] by CATHERINE NEWMAN on 08/17/2024 04:53 PM [facility] CenterZvjnrjib79-75-8368 Physical medicine and rehab History and physical [...] noted to home in inpatient rehab from [facility] stay 08/02 -08/15 who is past medical history of coronary artery disease, diabetes mellitus type 2, atrial relation, hypertension, osteoarthritis, and hyperlipidemia who presented to the emergency room with noted left-sided weakness and slurred speech. She originally presented to [facility] with CT of the head was obtained showed no acute hemorrhage or large territory stroke. CTA showed mid right M1 occlusion however patient was not a TNK candidate. [facility] showed [...] feedings. Patient deemed medically stable transferred to [facility] unit for physical and occupational [...] with spouse, first- floor set up. Primary Tube Blower: Self. Safe place to go: Yes. Lives [...] Rate80(AUG 15 20:06)80(AUG 15 20:06)80(AUG 15 20:06) DYZ597(AUG 16 00:03)128(AUG 16 00:03)140(AUG 15 17:47) DBP76(AUG 16 00:03)76(AUG 16 00:03)80(AUG 15 17:47) 36hr Labs 08/15 1805 Blood Glucose, Ykzltncno970I Blood Glucose, Kmezfspas009Z Blood Glucose TSee Flowsheet Assessment/Plan Debility and [...] EZEQUIEL HUSTON on 08/22/2024 05:17 AM Tyler GarciaMhwzgjpe11-03-1233 Miscellaneous Notes* Nursing Notes - Robson Steel [...] pacing over x3-5 sessions Outcome: Ongoing Problem: SUPERVISOR ACCOUNTS RECEIVABLE - Cognition Goal: Orientation Log - Patient [...] Progressing * Plan of Care - Prema Rosaels PT - 08/14/2024 9:15 AM EDT Problem: [...] pacing over x3-5 sessions Outcome: Ongoing Problem: SUPERVISOR ACCOUNTS RECEIVABLE - Cognition Goal: Orientation Log - Patient [...] patients daughter at bedside. Per patients daughter, The patient looks a lot worse than she did in the ICU and is confused about why that is. [...] for buried bumper syndrome. - If used assistant terminal manager, initial PEG should be changed in 6-12 months depending on tube condition. - No plans for repeat outpatient EGD at this time based on clinical status Jonnie Mccabe MD Division of Gastroenterology, Hepatology, and Nutrition Clinical Fellow PGY-4 Pager: [phone] * Plan of Care - Manisha Cheema [...] a reaction to anesthesia several years ago. The aniyah made it look like she was having a heart attack. He is not sure how long ago or what the specific medication was. Daughter, Kegaan [phone] would be able to answer questions. Catherine [...] 08/07/2024 5:00 PM EDT On admission to [facility], from another [facility] inpatient unit a [...] oropharyngeal swallow function to most appropriately guide SUPERVISOR ACCOUNTS RECEIVABLE plan of care Outcome: Met Goal: Bolus [...] readiness for diet advancement Outcome: Met Problem: SUPERVISOR ACCOUNTS RECEIVABLE - Cognition Goal: Orientation Log - Patient [...] better assess deficits and most appropriately guide SUPERVISOR ACCOUNTS RECEIVABLE plan of care Outcome: Met Goal: Attention: [...] of Care: 1. Diet: NPO. Advancement per team/SUPERVISOR ACCOUNTS RECEIVABLE recommendation 2. Ordered TF: Glucerna 1.5 @ [...] readiness for diet advancement Outcome: Ongoing Problem: SUPERVISOR ACCOUNTS RECEIVABLE - Cognition Goal: Orientation Log - Patient [...] better assess deficits and most appropriately guide SUPERVISOR ACCOUNTS RECEIVABLE plan of care Outcome: Ongoing * Nursing Notes - Aniyah Torre RN - 08/02/2024 6:13 PM EDT On admission to [facility], from [place] a dual RN initial assessment [...] change from previous assessment. Pt transferred to [facility] via cart accompanied by Denae ENRIQUEZ. T [...] under emergency consent. SURGEON(S): Prema Ramos MD WALL COVERING CONTRACTOR(S): None ANESTHESIA: Monitored anesthesia care DESCRIPTION OF [...] Freeclimb 70/Serjio 7 was advanced over a Snip.lyman microcatheter which was advanced over a synchro [...] - 08/02/2024 3:26 PM EDT Lindsay Acuna ([id number]) PRE OPERATIVE DIAGNOSIS Cerebral infarction due to [...] - Primary ANESTHESIOLOGIST Anesthesiologist: Tameka Ruth MD CAR PRE COOLER: Bebo Barboza APRN-CAR PRE COOLER SURGICAL STAFF Accounting Reconciliation Clerk: Rachell Ruffin RN Special Collections Librarian: Paulina Muñiz; Radha Morales COMPLICATIONS None ESTIMATED BLOOD LOSS Minimal SPECIMENS No specimen sent * No specimens in log * Prema Ramos MD August 02, 2024 3:26 PM documented in this encounterOS[facility] History of Present illness Narrative* OWEN Benavides - 08/15/2024 9:01 AM EDT Care Management Discharge Note Selected Continued Care - Admitted Since 08/02/2024 Destination Coordination complete. Service Provider Services Address Phone Fax Patient Preferred [facility] Inpatient Rehabilitation [address] [place] [address] -- -- Internal Comment last updated by OWEN Benavides 08/15/2024 0901 Report fax: [phone] Transport Request Mode of Transfer: [facility] Name of Discharge Transport Company: [employer] Discharge Transport ETA: 08/15/2024 @ 1030 Patient medically stable for discharge per physician/medical team. Pt has neurology appointment scheduled. Pt/ to schedule appointment with PCP. Patient/Loading Inspector remain in agreement withthe discharge plan. BULMARO Allen Cinder Snapper * OWEN Benavides - 08/14/2024 3:17 PM EDT Placement Plan Expected Discharge Date: 08/15/2024 Referred Level of Care: IPR Current Referrals and Status 1. [facility] obtained precertification for Pt starting tomorrow. Pt is set-up to leave via ambulance tomorrow at 1030. CM updated Pt's by phone. IPR will provide CM with the best phone and fax numbersfor RN report tomorrow morning. BULMARO Allen Cinder Snapper * Marybeth Ayoub - 08/14/2024 2:51 PM EDT Care Management Progress Note Transportation for discharge arranged Mode of Transfer: (P) BLS [facility] of Discharge [facility] ETA: (P) 08/15/2024 @ 1030 Pick-up from [facility] 1032/A Destination Tyler Tariqwn [facility] [address] [place] [address] OWEN Morrell Cinder Snapper Jazz Singer [phone] * Jazzy Aguiar - 08/14/2024 9:47 AM [...] position Mobility Assessment/Intervention: Supine to Sit Mobility Sinclair Level: Supine->Sit: moderate assist (50% patient effort) Physical Assist: Supine->Sit: 2 person assist Bed Features/Set-up: Supine->Sit: Head of bed elevated, Use of bed rail Skilled Rationale: Verbal cues, Tactile cues, Hand placement, Positioning, Technique of activity Skilled Intervention/Details: Supine->Sit: Cues for technique of transfer and pt needing increased assistance for managing legs and trunk to EOB positioning Transfer Assessment/Intervention: Sit to Stand Transfer Sinclair Level: Sit->Stand: moderate assist (50% patient effort) [...] hand held support Stand to Sit Transfer Sinclair Level: Stand->Sit: moderate assist (50% patient effort) Physical Assist: Stand->Sit: 2 person assist Assistive Device: Stand->Sit: gait belt, hand held assist Skilled Rationale: Verbal cues, Tactile cues, Hand placement, Positioning, Controlled descent for sitting Skilled Intervention/Details: Stand->Sit: Cues for positioning with BSC and recliner, pt provided bilat hand held support and needing increased support for managing a controlled descent Bed-Chair Transfer Sinclair Level: Bed<->Chair: maximum assist (25% patient effort) [...] managing L side during transfer Toilet Transfer Sinclair Level: Toilet: moderate assist (50% patient effort) [...] upright gaze when standing Outcome Score(s): CURRENT [facility] Daily Activity Inpatient Short Form Putting on/Taking Off Lower Body Clothin - Total Assistance Bathin - A Lot of Assistance Toiletin - Total Assistance Putting on/Taking Off Upper Body Clothin - A Little Assistance Groomin - A Little Assistance Eatin - Total Assistance CURRENT [facility] Activity Raw Score: 11 CURRENT [facility] Activity Functional Limitation/Modifier: 70.42% Currently [...] person, Oriented to place, Oriented to situation ([facility] September 2024 stroke) Following Commands: Follows one step commands with [...] blocking Mobility Assessment/Intervention: Supine to Sit Mobility Sinclair Level: Supine->Sit: moderate assist (50% patient effort) [...] sitting) Transfer Assessment/Intervention: Sit to Stand Transfer Sinclair Level: Sit->Stand: moderate assist (50% patient effort) Physical Assist: Sit->Stand: 2 person assist Assistive Device: Sit->Stand: gait belt Skilled Rationale: Arm in arm, Patellar block, Ischial assist, Facilitate anterior shift, Full extension to upright positioning/posture, Finding/maintaining midline positioning Skilled Intervention/Details: Sit->Stand: repeat cues to avoid significant L lean with improvement last standing. x1 from EOB, x2 from BSC Stand to Sit Transfer Sinclair Level: Stand->Sit: moderate assist (50% patient effort) Physical Assist: Stand->Sit: 2 person assist Assistive Device: Stand->Sit: gait belt Skilled Rationale: Arm in arm, Controlled descent for sitting Skilled Intervention/Details: Stand->Sit: last trial assisted R hand to recliner arm rest and ongoing cues for wt shift to R Bed-Chair Transfer Sinclair Level: Bed<->Chair: maximum assist (25% patient effort) [...] Mobility Assessment/Intervention: Stairs Assessment/Intervention: Outcome Score(s): CURRENT [facility] Basic Mobility Inpatient Short Form [...] with a railin - Total Assistance [facility]RENT [facility] Mobility Raw Score: 8 CURRENT [facility] Mobility Functional Limitation: 86.62% Impaired in Basic Mobility Interventions: Intervention 1 Intervention Name: [facility] supine and sitting Details: education L attention [...] 10 Treating Therapist: Shaina Rosales PT, DPT [id number] 08/14/2024 Additional Details: PT Co-Eval/Treatment Information Co-evaluation/co-treatment [...] on the below outcome measures/assessment score(s) and SUPERVISOR ACCOUNTS RECEIVABLE clinicaljudgment, discharge destination recommendation is: IPR Barriers to discharge home: 1:1 assist needed for IADL's including medication management and finances Supporting factors for discharge setting: Impaired swallow function limiting nutritional status andsafety with oral intake, Impaired cognitive skills limiting safety/insight Acute SUPERVISOR ACCOUNTS RECEIVABLE Outcomes Tracking Communicate basic wants and needs?: [...] independent carry over. Strong family support. Ongoing SUPERVISOR ACCOUNTS RECEIVABLE s indicated. Subjective information: Alert, present. SO referenced his notes from yesterday and reportedcarry over of exercises yesterday. Patient with zero recall Pain: Nonverbal indicator not present Precautions: Patient Safety Communication Prior to Visit: Nursing Lines/Tubes/Drains (Rehab Status): Telemetry, Tube feed Existing Precautions/Restrictions: fall Respiratory Status: O2 Sat (%): 96 % (08/14 0711) O2 Device: room air (08/14 0947) Acute SUPERVISOR ACCOUNTS RECEIVABLE Goals Plan of Care by Tanja Cason SUPERVISOR ACCOUNTS RECEIVABLE at 08/14/2024 2:42 PM Version 1 of [...] and airway protection during the swallow Unclear effortful nature of her repetitions, though she did [...] RoM to achieve technique. Outcome: Ongoing Problem: SUPERVISOR ACCOUNTS RECEIVABLE - Cognition Goal: Orientation Log - Patient [...] next session: 08/14 - ongoing exercises, education SUPERVISOR ACCOUNTS RECEIVABLE Outcomes: FOIS 2 Speech Language Pathologist: RIKI [...] of session: none altered Needs in reach. SUPERVISOR ACCOUNTS RECEIVABLE Evaluation and Treatment Time Speech Therapy - Individual 00334: 14 Swallowing Dysfunction Treatment 09196: 14 Upon discontinuation of Acute Care Speech [...] on the below outcome measures/assessment score(s) and SUPERVISOR ACCOUNTS RECEIVABLE clinicaljudgment, discharge destination recommendation is: Inpatient Rehab Facility Barriers to discharge home: 1:1 assist needed for IADL's including medication management and finances Supporting factors for discharge setting: Impaired swallow function limiting nutritional status andsafety with oral intake, Impaired cognitive skills limiting safety/insight Acute SUPERVISOR ACCOUNTS RECEIVABLE Outcomes Tracking Communicate basic wants and needs?: [...] memory, insight and problem solving. reported she's all over the place though patient denied any concerns this date. [...] Respiratory Status: O2 Sat (%): 96 % (04/01 0711) O2 Device: room air (08/13 710) Acute SUPERVISOR ACCOUNTS RECEIVABLE Goals Plan of Care by Tanja Cason SUPERVISOR ACCOUNTS RECEIVABLE at 08/13/2024 11:10 AM Version 1 of [...] 10 reps this session. Outcome: Ongoing Problem: SUPERVISOR ACCOUNTS RECEIVABLE - Cognition Goal: Orientation Log - Patient [...] considerations: Cognition Patient Instruction/Education comments: Role of SUPERVISOR ACCOUNTS RECEIVABLE, presence and normalized frustration with cognitive-communicative impairments. Focused on memory this date and that patient does not recall education so perseverative questions are normal. Reviewed intermittent silent aspiration from MBS last weekand ongoing signs of dysphagia this session, will plan to coordinate timing for repeat instrumentalwith care team Plan for next session: 08/13 -fair SUPERVISOR ACCOUNTS RECEIVABLE Outcomes: FOIS 2 Speech Language Pathologist: RIKI [...] of session: none altered Needs in reach. SUPERVISOR ACCOUNTS RECEIVABLE Evaluation and Treatment Time Speech Therapy - Individual 99924: 12 Swallowing Dysfunction Treatment 60112: 13 Upon discontinuation of Acute Care Speech Therapy Services or patient discharge from the hospital this note represents the current Speech Therapy Discharge Summary * OWEN Benavides - 08/12/2024 3:21 PM EDT Placement Plan Expected Discharge Date: 08/14/2024 Referred Level of Care: IPR Barriers: Medical Readiness & Precertification Current Referrals and Status 1. [facility]-accepted IPR started precertification today. BULMARO Allen Cinder Snapper * Jazzy Aguiar - 08/12/2024 10:46 AM [...] sinkside Mobility Assessment/Intervention: Supine to Sit Mobility Sinclair Level: Supine->Sit: moderate assist (50% patient effort) [...] positioning Transfer Assessment/Intervention: Sit to Stand Transfer Sinclair Level: Sit->Stand: maximum assist (25% patient effort) [...] maintaining upright posture Stand to Sit Transfer Sinclair Level: Stand->Sit: maximum assist (25% patient effort) Physical Assist: Stand->Sit: 2 person assist Assistive Device: Stand->Sit: gait belt, hand held assist Skilled Rationale: Verbal cues, Tactile cues, Hand placement, Positioning, Controlled descent for sitting Skilled Intervention/Details: Stand->Sit: Cues for positioning with recliner and using BUEs to help with appropriate positoining of hips in chair Bed-Chair Transfer Sinclair Level: Bed<->Chair: maximum assist (25% patient effort) Physical Assist: Bed<->Chair: 2 person assist Assistive Device: Bed<->Chair: gait belt Skilled Rationale: Verbal cues, Tactile cues, Hand placement, Positioning, Technique of activity Skilled Intervention/Details: Bed<->Chair: x1 from EOB to recliner on R. Pt needing increasedsupport for managing L side and sequencing steps for appropriate positioning with recliner Outcome Score(s): CURRENT [facility] Daily Activity Inpatient Short Form Putting on/Taking Off Lower Body Clothin - Total Assistance Bathin - A Lot of Assistance Toiletin - Total Assistance Putting on/Taking Off Upper Body Clothin - A Lot of Assistance Groomin - A Lot of Assistance Eatin - Total Assistance CURRENT [facility] Activity Raw Score: 9 CURRENT [facility] Activity Functional Limitation/Modifier: 79.59% Currently [...] speech and L hemiplegia. She presented to [facility] and was seen on Telestroke, [...] goal TF volume. Pt last assessed by SUPERVISOR ACCOUNTS RECEIVABLE 08/08 with recommendations for NPO. S/p PEG [...] chips. Will also increase free water flushes. SUPERVISOR ACCOUNTS RECEIVABLE to see pt tomorrow. Nutrition Focused Physical Exam: Nutrition Focused Physical Exam Completed?: completed Subcutaneous Fat Loss: Orbital Region (Orbital Fat Pads): WDL Cheek Region (Buccal Fat Pads): WDL Upper Arm Region (Triceps): WDL Thoracic and Lumbar Region (Ribs, Lower Back, Midaxillary Line): WDL Muscle Wasting: Denominational Region (Temporalis Muscle): deferred (lac over eyebrow) [...] 1 NPO Meds:: with meds Ht: 5' 7 Current Wt: 78 kg (172#) Admit Wt: 78.3 kg (172 lb 9.9 oz) IBW: 61.4 kg (135#) %IBW: 128%BMI: 26.9 Weight History: 08/05/24 78 kg (172 lb) 06/26/24 [facility]9 kg (174 lb)-[facility] 05/31/24 79 kg (174 lb 2.6 oz)-[facility] 11/28/23 80.6 kg (177 lb 9.6 oz)-[facility] 09/29/23 84 kg (185 lb)-[facility] meds reviewed: Scheduled: Reviewed, includes [...] Needs: Weight Used: 61 kg (IBW) EEN: 2212-6803 kcal/day (25-30 kcal/kg) EPN: 73-92 g/day (1.2-1.5 g/kg) EFN: 1830 mL/day (30 mL/kg) or per primary team Malnutrition Statement: Does the patient meet criteria for malnutrition: No *Based on The Academy and ASPEN Indicators to Diagnose Malnutrition (AAIM) criteria (2012) Tianna Murray RD, LD, [facility] Pager #[phone] * Katie Ramos, PT - 08/12/2024 10:22 [...] standing. Mobility Assessment/Intervention: Supine to Sit Mobility Sinclair Level: Supine->Sit: moderate assist (50% patient effort) Physical Assist: Supine->Sit: 2 person assist Bed Features/Set-up: Supine->Sit: Head of bed elevated Skilled Rationale: Verbal cues, Tactile cues, Hand placement, Technique of activity Skilled Intervention/Details: Supine->Sit: verbal/tactile cues for instruction on transfer technique and mod A x 2 for LE and trunk management. Transfer Assessment/Intervention: Sit to Stand Transfer Sinclair Level: Sit->Stand: maximum assist (25% patient effort) Physical Assist: Sit->Stand: 2 person assist Assistive Device: Sit->Stand: gait belt Skilled Rationale: Verbal cues, Tactile cues, Hand placement, Technique of activity Skilled Intervention/Details: Sit->Stand: x2 trials with verbal/tactile cues for instruction on transfer technique, hand placement, and blocking left knee. Bed-Chair Transfer Sinclair Level: Bed<->Chair: maximum assist (25% patient effort) [...] with a railin - Total Assistance CURRENT [facility] Mobility Raw Score: 7 CURRENT [facility] Mobility Functional Limitation: 92.36% Impaired [...] Physical Therapy Discharge Summary. * Radha Gr APRN-GARRETT - 08/11/2024 7:15 AM EDT NEUROVASCULAR STROKE SERVICE Daily Progress Note IDENTIFYING INFORMATION Lindsay Acuna MR# [id number] 08/11/2024 HISTORY OF PRESENT ILLNESS Lindsay Acuna is a 78 y.o. female with PMH significant for CAD, HTN, HLD, T2DM, Afib (on Eliquis, although patient reports she has not been taking it) who presents with L hemiplegia, slurred speech. LKW 0915 on 08/02, later found down with slurred speech and L hemiplegia. She presented to [facility] and was seen on Telestroke, [...] (home dose), give mag , NPO at [place] for FABIAN PHYSICAL EXAM Gen: awake, alert [...] today 08/11 -Rate controlled on metoprolol Dysphagia: -SUPERVISOR ACCOUNTS RECEIVABLE following -NPO, DHT + TF -Failed MBS [...] Lindsay Acuna will likely be discharged to [facility] when medically ready Radha Gr, FAMILY MEMBER CARETAKER-GAUGE INSPECTOR 08/11/2024 10:17 AM VITAL SIGNS Temp: [...] 3.5 08/02/2024 , No results found for: CPK, TROP IMAGING/DIAGNOSTIC STUDIES CT HEAD WITHOUT CONTRAST Final [...] for specific therapeutic recommendations, please see the chemical engineering technician report of the speech pathologist. Examination performed [...] and neurological examinations as recorded by the CUTTER OPERATOR BRICK repeated and confirmed. I have personally reviewed [...] of tooth. Blood cx unremarkable. * Radha E Simón, FAMILY MEMBER CARETAKER-GAUGE INSPECTOR - 08/10/2024 7:14 AM EDT NEUROVASCULAR STROKE SERVICE Daily Progress Note IDENTIFYING INFORMATION Lindsay Acuna MR# [id number] 08/10/2024 HISTORY OF PRESENT ILLNESS Lindsay Acuna is a 78 y.o. female with PMH significant for CAD, HTN, HLD, T2DM, Afib (on Eliquis, although patient reports she has not been taking it) who presents with L hemiplegia, slurred speech. LKW 0915 on 08/02, later found down with slurred speech and L hemiplegia. She presented to [facility] and was seen on Telestroke, [...] as above -Rate controlled on metoprolol Dysphagia: -SUPERVISOR ACCOUNTS RECEIVABLE following -NPO, DHT + TF -Failed MBS [...] Lindsay Acuna will likely be discharged to [facility] when medically ready Radha Gr APRN-GAUGE INSPECTOR 08/10/2024 7:14 AM VITAL SIGNS Temp: [...] 3.5 08/02/2024 , No results found for: CPK, TROP IMAGING/DIAGNOSTIC STUDIES CT HEAD WITHOUT CONTRAST Final [...] for specific therapeutic recommendations, please see the chemical engineering technician report of the speech pathologist. Examination performed [...] skin and external bumper. - If used assistant terminal manager, PEG should be changed every 3-6 months [...] Hepatology, and Nutrition Clinical Fellow PGY-4 Pager: [phone] For follow up questions regarding this patient 7am to 5pm, contact the IBD consults fellow or DAHLIA on [employer]. [facility] [place] Medicine--> Gastroenterology, Hepatology, & Nutrition--> IBD Consult Service Fel Day OR IBD Consult Service DAHLIA Day For urgent/stat calls or new consults 5pm to 7am or all day on the weekend, please page the on-callGI fellow on Qgo[employer] mediaa. [facility] [place] Medicine--> Gastroenterology, Hepatology, & Nutrition--> 1st Call Fel Miriam OR STAT/NEW GI Cons Wknd Fel Day Cosigned by Nriu Koch MD at 08/10/2024 2:11 PM EDT [...] contact for assistance as needed (8:00am-4:30pm) BASH: [phone] Maria: [phone] Johan: [phone] Ross: [phone] For Social Work assistance for the weekend, please contact SW for assistance as needed (8:00am - 4:30pm): BASH: [phone] Maria: [phone] Johan: [phone] Ross: [phone] * Radha Gr, JASIEL-GAUGE INSPECTOR - 08/09/2024 8:07 AM EDT NEUROVASCULAR STROKE SERVICE Daily Progress Note IDENTIFYING INFORMATION Lindsay Acuna MR# [id number] 08/09/2024 HISTORY OF PRESENT ILLNESS Lindsay Acuna is a 78 y.o. female with PMH significant for CAD, HTN, HLD, T2DM, Afib (on Eliquis, although patient reports she has not been taking it) who presents with L hemiplegia, slurred speech. LKW 0915 on 08/02, later found down with slurred speech and L hemiplegia. She presented to [facility] and was seen on Telestroke, [...] as above -Rate controlled on metoprolol Dysphagia: -SUPERVISOR ACCOUNTS RECEIVABLE following -NPO, DHT + TF -Failed MBS [...] home levothyroxine 75 mcg daily Disposition: Lindsay Aucna will likely be discharged to [facility] when medically ready Radha Gr, FAMILY MEMBER CARETAKER-GAUGE INSPECTOR 08/09/2024 8:07 AM VITAL SIGNS Temp: [...] 3.5 08/02/2024 , No results found for: CPK, TROP IMAGING/DIAGNOSTIC STUDIES CT HEAD WITHOUT CONTRAST Final [...] for specific therapeutic recommendations, please see the chemical engineering technician report of the speech pathologist. Examination performed [...] on the below outcome measures/assessment score(s) and SUPERVISOR ACCOUNTS RECEIVABLE clinicaljudgment, discharge destination recommendation is: Inpatient Rehab Facility Acute SUPERVISOR ACCOUNTS RECEIVABLE Outcomes Tracking Communicate basic wants and needs?: [...] pressions and introduction to effortful swallow exercise. SUPERVISOR ACCOUNTS RECEIVABLE provided education regarding recommendation of NPO given [...] constraints (transport arrived for pt's CT scan). SUPERVISOR ACCOUNTS RECEIVABLE will follow as able. Subjective information: Patient upright in chair, at bedside. Agreeable to SUPERVISOR ACCOUNTS RECEIVABLE session. Pain: General Pain Documentation (Adult, OB, [...] room air Flow (L/min): [3] 3 Acute SUPERVISOR ACCOUNTS RECEIVABLE Goals Plan of Care by RIKI Penaloza [...] phsyiology, risks of aspiration pneumonia). Educated regarding SUPERVISOR ACCOUNTS RECEIVABLE role in swallow rehab and future POC Plan for next session: 08/06: cog tx and dysphagia exercises SUPERVISOR ACCOUNTS RECEIVABLE Outcomes: FOIS: 1 Speech Language Pathologist: RIKI Penaloza Time In: 1310 Time Out: 1330 Total Visit Time: 20 minutes Total Treatment Time (skilled, billable minutes): 20 minutes Non-billable assistance during session: NA Assisted by during session: NA PPE used during patient interaction: gloves Patient location/status at end of session: chair Patient alarms at end of session: none altered Needs in reach. SUPERVISOR ACCOUNTS RECEIVABLE Evaluation and Treatment Time Swallowing Dysfunction Treatment 32835: 20 Upon discontinuation of Acute Care Speech [...] was agreeable to participate, pt frequently stating I do not know my left from right Pain: General Pain Documentation (Adult, OB, Peds) [...] feedback Mobility Assessment/Intervention: Supine to Sit Mobility Sinclair Level: Supine->Sit: moderate assist (50% patient effort) Physical Assist: Supine->Sit: 2 person assist Bed Features/Set-up: Supine->Sit: Use of bed rail, Head of bed elevated Skilled Rationale: Sequencing, Verbal cues, Hand placement, Positioning Skilled Intervention/Details: Supine->Sit: increased time/cues Transfer Assessment/Intervention: Sit to Stand Transfer Sinclair Level: Sit->Stand: moderate assist (50% patient effort) Physical Assist: Sit->Stand: 2 person assist Assistive Device: Sit->Stand: gait belt, hand held assist Skilled Rationale: Positioning, Sequencing, Hand placement, Verbal cues Skilled Intervention/Details: Sit->Stand: Pt educated in sit to stand transfers x 2 attempts, one from EOB and one from chair Bed-Chair Transfer Sinclair Level: Bed<->Chair: maximum assist (25% patient effort) [...] Mobility Assessment/Intervention: Stairs Assessment/Intervention: Outcome Score(s): CURRENT [facility] Basic Mobility Inpatient Short Form [...] with a railin - Total Assistance [facility]RENT [facility] Mobility Raw Score: 8 CURRENT [facility] Mobility Functional Limitation: 86.62% Impaired [...] positioning Mobility Assessment/Intervention: Supine to Sit Mobility Sinclair Level: Supine->Sit: moderate assist (50% patient effort) [...] positioning Transfer Assessment/Intervention: Sit to Stand Transfer Sinclair Level: Sit->Stand: moderate assist (50% patient effort) Physical Assist: Sit->Stand: 2 person assist Assistive Device: Sit->Stand: gait belt, hand held assist Skilled Rationale: Verbal cues, Tactile cues, Hand placement, Positioning, Technique of activity Skilled Intervention/Details: Sit->Stand: x1 from EOB, x1 from recliner. Cues for technique and assuming an upright posture once standing Stand to Sit Transfer Sinclair Level: Stand->Sit: moderate assist (50% patient effort) Physical Assist: Stand->Sit: 2 person assist Assistive Device: Stand->Sit: gait belt, hand held assist Skilled Rationale: Verbal cues, Tactile cues, Hand placement, Positioning, Controlled descent for sitting Skilled Intervention/Details: Stand->Sit: Cues for positioning with recliner and using arms to help with controlled descent into chair Bed-Chair Transfer Sinclair Level: Bed<->Chair: maximum assist (25% patient effort) [...] appropriately position with chair. Outcome Score(s): CURRENT [facility] Daily Activity Inpatient Short Form Putting on/Taking Off Lower Body Clothin - Total Assistance Bathin - A Lot of Assistance Toiletin - Total Assistance Putting on/Taking Off Upper Body Clothin - A Lot of Assistance Groomin - A Lot of Assistance Eatin - Total Assistance [facility] Activity Raw Score: 9 CURRENT [facility] Activity Functional Limitation/Modifier: 79.59% Currently [...] Progress Note IDENTIFYING INFORMATION Lindsay Acuna MR# [id number] 08/08/2024 HISTORY OF PRESENT ILLNESS Lindsay Acuna is a 78 y.o. female with PMH significant for CAD, HTN, HLD, T2DM, Afib (on Eliquis, although patient reports she has not been taking it) who presents with L hemiplegia, slurred speech. TOREYW 0915 on 08/02, later found down with slurred speech and L hemiplegia. She presented to [facility] and was seen on Telestroke, [...] as above -Rate controlled on metoprolol Dysphagia: -SUPERVISOR ACCOUNTS RECEIVABLE following -NPO, DHT + TF -Failed MBS [...] Lindsay Acuna will likely be discharged to [facility] when medically ready Bella Cardenas, FAMILY MEMBER CARETAKER-GAUGE INSPECTOR 08/08/2024 2:53 PM VITAL SIGNS Temp: [...] 3.5 08/02/2024 , No results found for: CPK, TROP IMAGING/DIAGNOSTIC STUDIES CT HEAD WITHOUT CONTRAST XR FLUORO MODIFIED BARIUM SWALLOW WITH SPEECH Final Result IMPRESSION: 1. Inconsistent silent and sensate aspiration of thin, mildly thick/nectar, and moderately thick/honey consistencies. 2. No penetration or aspiration with pudding consistency. For additional analysis of the fluoroscopic examination for specific therapeutic recommendations, please see the chemical engineering technician report of the speech pathologist. Examination performed [...] bed availability Current Referrals and Status 1. [facility]- Reserved CCM notified LUCIO student confirming after call with Patient's daughter that [facility] is facility of choice. Facility reserved. [...] and patient's spouse are agreeable to [facility] as facility of choice, and Gisela is agreeable to [facility] as well. Updated SW student. Simin Resendez RN, BSN Clinical Director Marketing [facility] * Chela Hannon - 08/07/2024 2:08 PM EDT Placement Plan PROGRAM MEDICAL DIRECTOR met with Patient and spouse at bedside to discuss facility choice. Spouse mentioned that [facility] was first choice, though PROGRAM MEDICAL DIRECTOR provided update that [facility] could not accept after reviewing. PROGRAM MEDICAL DIRECTOR reviewed other IPR options with Spouse, who reports that [facility] would be facility of choice. Spouse discussed with daughter Gisela via phone, who is in agreement but requestsa return call. PROGRAM MEDICAL DIRECTOR notified CCM. Chela Snyder, Social Work Student Available by Secure Chat Cosigned by OWEN Keller at 08/07/2024 2:11 PM EDT * Bella Cardenas APRN-GARRETT - 08/07/2024 6:54 AM EDT NEUROVASCULAR STROKE SERVICE Daily Progress Note IDENTIFYING INFORMATION Lindsay Acuna MR# [id number] 08/07/2024 HISTORY OF PRESENT ILLNESS Lindsay Acuna is a 78 y.o. female with PMH significant for CAD, HTN, HLD, T2DM, Afib (on Eliquis, although patient reports she has not been taking it) who presents with L hemiplegia, slurred speech. LKW 0915 on 08/02, later found down with slurred speech and L hemiplegia. She presented to [facility] and was seen on Telestroke, [...] revascularization. INTERVAL HISTORY 08/05: [place] [facility]: Failed MBS. Increased [...] as above -Rate controlled on metoprolol Dysphagia: -SUPERVISOR ACCOUNTS RECEIVABLE following -NPO, DHT + TF -Failed MBS [...] Hypothyroidism, POA: -Continue home levothyroxine 75 mcg daily\ Disposition: Lindsay Acuna will likely be discharged to [facility] when medically ready Bella Cardenas, FAMILY MEMBER CARETAKER-GAUGE INSPECTOR 08/07/2024 3:06 PM VITAL SIGNS Temp: [...] 3.5 08/02/2024 , No results found for: CPK, TROP IMAGING/DIAGNOSTIC STUDIES XR FLUORO MODIFIED BARIUM SWALLOW WITH SPEECH Final Result IMPRESSION: 1. Inconsistent silent and sensate aspiration of thin, mildly thick/nectar, and moderately thick/honey consistencies. 2. No penetration or aspiration with pudding consistency. For additional analysis of the fluoroscopic examination for specific therapeutic recommendations, please see the chemical engineering technician report of the speech pathologist. Examination performed [...] authorization, transportation Current Referrals and Status 1. [facility]: Available 2. [facility]: Available 3. [facility]: Available (pending PEG or diet and their MD requested aspirin started before discharge) 4. [facility]: Available 5. [facility]: Unavailable, out of network 6. [facility] Inpatient Rehab: Unavailable, Incorrect Level of Care 7. [facility] IPR: sent Met with patient and patient's spouse, Ike, at bedside to provide choice list. Ike called patient's daughter, Gisela Acuna, to discuss as well. Gisela requested information on private pay at [facility], messaged [facility] liaison and then provided information to Gisela. Gisela requested CM sendreferral to [facility] IPR. Plan for family to review choice list tonight, CM/SW team will update patient and family regarding [facility] IPR response tomorrow morning. This CM's contact information provided to Ike Acuna and Gisela Acuna for any further questions. Simin Resendez RN, BSN Clinical Director Marketing [facility] * Florinda Velasquez PT - 08/06/2024 2:30 [...] minutes Mobility Assessment/Intervention: Supine to Sit Mobility Sinclair Level: Supine->Sit: moderate assist (50% patient effort) Bed Features/Set-up: Supine->Sit: Head of bed elevated, Use of bed rail Skilled Rationale: Positioning, Sequencing Skilled Intervention/Details: Supine->Sit: step by step cues for sequencingg Transfer Assessment/Intervention: Sit to Stand Transfer Sinclair Level: Sit->Stand: moderate assist (50% patient effort) [...] left UE during transitional movements Bed-Chair Transfer Sinclair Level: Bed<->Chair: moderate assist (50% patient effort) Physical Assist: Bed<->Chair: 2 person assist Assistive Device: Bed<->Chair: gait belt, hand held assist Skilled Rationale: Positioning, Hand placement, Verbal cues, Sequencing Skilled Intervention/Details: Bed<->Chair: Pt educated in bed to BSC commode transfer x 2-3 steps with cues for LE sequencing, left LE weakness requiring intermittent blocking Gait/Functional Mobility Assessment/Intervention: Gait Assessment Sinclair Level: Gait: (mod/max) Physical Assist: Gait: 2 [...] prevent buckling. Stairs Assessment/Intervention: Outcome Score(s): CURRENT [facility] Basic Mobility Inpatient Short Form [...] with a railin - Total Assistance [facility]RENT [facility] Mobility Raw Score: 9 CURRENT [facility] Mobility Functional Limitation: 81.38% Impaired [...] Therapy Discharge Summary. * Nimesh Balderrama [facility] - 08/06/2024 1:42 PM EDT Department of Pharmacy Admission Medication Reconciliation Note Patient: Lindsay Acuna Room/Bed: 1043/A I have reviewed the patient's home medication list with the following sources Dispense Report. The home medication list status is: complete. All changes to the home medication list have been updated in [facility]. Updated WINDOWS LAPTOP TECHNICIAN Med List: Prior to Admission Medications Prescriptions [...] with any further questions. Name: Nimesh Balderrama [facility] Phone #: [phone] Date/Time: 08/06/2024 1:42 PM Time Spent: 10 [...] Prior to Visit: Nursing Subjective: Pt reported, I can't tell my right and left apart normally. Pain: General Pain Documentation (Adult, OB, Peds) [...] noted Mobility Assessment/Intervention: Supine to Sit Mobility Sinclair Level: Supine->Sit: moderate assist (50% patient effort) [...] completion. Transfer Assessment/Intervention: Sit to Stand Transfer Sinclair Level: Sit->Stand: (x 1 trial from EOB [...] and kyphotic posture. Stand to Sit Transfer Sinclair Level: Stand->Sit: moderate assist (50% patient effort) Assistive Device: Stand->Sit: gait belt (Arm and arm assist.) Skilled Rationale: Cues for increased safety, Initiation and execution of task, Technique of activity, Controlled descent for sitting, Ischial assist, Arm in arm, Tactile cues, Verbal cues, Hand placement, Sequencing, Positioning Bed-Chair Transfer Sinclair Level: Bed<->Chair: moderate assist (50% patient effort) [...] with left LE). Functional Mobility: Functional Mobility Sinclair Level: Functional Mobility/Gait: (Moderate-max assistance) Physical Assist: [...] overall decreased insight/awareness intodeficits. Outcome Score(s): CURRENT [facility] Daily Activity Inpatient Short Form Putting on/Taking Off Lower Body Clothin - Total Assistance Bathin - A Lot of Assistance Toiletin - Total Assistance Putting on/Taking Off Upper Body Clothin - A Lot of Assistance Groomin - A Lot of Assistance Eatin - Total Assistance ([place].) [facility] Activity Raw Score: 9 CURRENT [facility] Activity Functional Limitation/Modifier: 79.59% Currently [...] Occupational Therapy Discharge Summary. * Taran Traore APRN-GAUGE INSPECTOR - 08/06/2024 7:49 AM EDT NEUROVASCULAR STROKE SERVICE Daily Progress Note IDENTIFYING INFORMATION Lindsay Acuna MR# [id number] 08/06/2024 HISTORY OF PRESENT ILLNESS Lindsay Acuna is a 78 y.o. female with PMH significant for CAD, HTN, HLD, T2DM, Afib (on Eliquis, although patient reports she has not been taking it) who presents with L hemiplegia, slurred speech. LKW 0915 on 08/02, later found down with slurred speech and L hemiplegia. She presented to [facility] and was seen on Telestroke, [...] revascularization. INTERVAL HISTORY 08/05: Transfer [place] [place] 08[place]: Failed MBS. Increased [...] AND PLAN Neuro: Acute R MCA stroke 2/ R [...] as above -Rate controlled on metoprolol Dysphagia: -SUPERVISOR ACCOUNTS RECEIVABLE following -NPO, DHT + TF -Failed MBS [...] Lindsay Acuna will likely be discharged to [facility] when medically ready Taran Traore, FAMILY MEMBER CARETAKER-GAUGE INSPECTOR 08/06/2024 1:43 PM VITAL SIGNS Temp: [...] 3.5 08/02/2024 , No results found for: CPK, TROP IMAGING/DIAGNOSTIC STUDIES XR FLUORO MODIFIED BARIUM SWALLOW WITH SPEECH Final Result IMPRESSION: 1. Inconsistent silent and sensate aspiration of thin, mildly thick/nectar, and moderately thick/honey consistencies. 2. No penetration or aspiration with pudding consistency. For additional analysis of the fluoroscopic examination for specific therapeutic recommendations, please see the chemical engineering technician report of the speech pathologist. Examination performed [...] Progress Note IDENTIFYING INFORMATION Lindsay Acuna MR# [id number] 08/05/2024 HISTORY OF PRESENT ILLNESS Lindsay Acuna is a 78 y.o. female with PMH significant for CAD, HTN, HLD, T2DM, Afib (on Eliquis, although patient reports she has not been taking it) who presents with L hemiplegia, slurred speech. LKW 0915 on 08/02, later found down with slurred speech and L hemiplegia. She presented to [facility] and was seen on Telestroke, [...] 2b revascularization. INTERVAL HISTORY 08/05: Transfer to [facility] tomorrow PHYSICAL EXAM Gen: awake, alert, NAD [...] as above -Rate controlled on metoprolol Dysphagia: -SUPERVISOR ACCOUNTS RECEIVABLE following -NPO, DHT + TF -MBS tomorrow HLD, POA: -Atorvastatin 40 mg daily CAD, POA: -Hold ASA for 7 days due to ICH T2DM, POA: -SSI regular + accuchecks CKD Stage 3A, POA: Baseline Cr 1.3 -Avoid nephrotoxins, monitor Hypothyroidism, POA: -Continue home levothyroxine 75 mcg daily Disposition: Lindsay Acuna will likely be discharged to [facility] when medically ready Taran Traore APRN-GAUGE INSPECTOR 08/05/2024 2:19 PM VITAL SIGNS Temp: [...] 3.5 08/02/2024 , No results found for: CPK, TROP IMAGING/DIAGNOSTIC STUDIES ECHOCARDIOGRAM Final Result CT HEAD [...] on the below outcome measures/assessment score(s), and SUPERVISOR ACCOUNTS RECEIVABLE clinical judgment, discharge destination recommendation is: Pending [...] Impaired cognitive skills limiting saf ety/insight Acute SUPERVISOR ACCOUNTS RECEIVABLE Outcomes Tracking Communicate basic wants and needs?: [...] oropharyngeal swallow function to most appropriately guide SUPERVISOR ACCOUNTS RECEIVABLE plan of care. Of note, patient is [...] Currentdeficits impact her safety and independence. Ongoing SUPERVISOR ACCOUNTS RECEIVABLE services are warranted. Subjective information: Awake, alert, [...] O2 Device: room air (08/05 0830) Acute SUPERVISOR ACCOUNTS RECEIVABLE Goals Plan of Care by Queta Gardner SUPERVISOR ACCOUNTS RECEIVABLE at 08/05/2024 11:49 AM Version 1 of [...] oropharyngeal swallow function to most appropriately guide SUPERVISOR ACCOUNTS RECEIVABLE plan of care Outcome: Ongoing Problem: SUPERVISOR ACCOUNTS RECEIVABLE - Cognition Goal: Orientation Log - Patient [...] better assess deficits and most appropriately guide SUPERVISOR ACCOUNTS RECEIVABLE plan of care Outcome: Met Tx: Noted [...] for next session: 08/05: Good candidate; FERNANDO SUPERVISOR ACCOUNTS RECEIVABLE Outcomes: SUPERVISOR ACCOUNTS RECEIVABLE Outcomes / Standardized Measures Score The Orientation [...] wrist restraints, RN aware Needs in reach. SUPERVISOR ACCOUNTS RECEIVABLE Evaluation and Treatment Time Speech Therapy - Individual 21650: 8 Swallowing Dysfunction Treatment 58674: 9 Upon discontinuation of Acute Care Speech Therapy Services or patient discharge from the hospital this note represents the current Speech Therapy Discharge Summary * Chela Hannon - 08/05/2024 10:37 AM EDT Placement Plan Expected Discharge Date: TBD Referred Level of Care: IPR Barriers: medical stability, bed availability Current Referrals and Status 1. [facility]- sent; denied (Patient is OON) 2. [facility]- sent 3. [facility]- sent 4. [facility]- sent 5. [facility]- sent 6. [facility] PROGRAM MEDICAL DIRECTOR met with Patient and Spouse at bedside to discuss discharge planning. Patient and spouse were agreeable to SW visit. PROGRAM MEDICAL DIRECTOR discussed therapy recommendations with Spouse for Patient to go to [facility] at discharge. Spouse is agreeable to a referral being sent to [facility]. Referral sent. Spouse requested to speak to SW about assessing Patient for dementia. PROGRAM MEDICAL DIRECTOR and bedside RN encouragedSpouse to discuss with Patient's outpatient provider. Chela Snyder, Social Work Student Available by Secure Chat Cosigned by OWEN Keller at 08/05/2024 11:22 AM EDT * Savana Leung, RD - 08/05/2024 10:10 AM EDT NUTRITION ASSESSMENT Nutrition Recommendations and Plan of Care: 1. Diet: NPO. Advancement per team/SUPERVISOR ACCOUNTS RECEIVABLE recommendation 2. Ordered TF: Glucerna 1.5 @ [...] time. Per team, pt failed bedside swallow. SUPERVISOR ACCOUNTS RECEIVABLE consulted for swallow eval. Past History No past medical history on file. No past surgical history on file. has no allergies on file. Diet Order: Current Diet Orders Procedures DIET NPO AND TUBE FEEDING with meds (per DHT) Standing Status: Standing Number of Occurrences: 1 NPO Meds:: with meds per DHT Height: 170.2 cm (5' 7), Weight: 78 kg (172 lb); IBW- 61.4kg. Currently @ 127% IBW Body mass index is 26.94 kg/m . 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 Tmax: 97.8*F BP: (!) 173/94 Pulse (Heart [...] proximal second portion of the duodenum. BM: WINDOWS LAPTOP TECHNICIAN Urine: 725mL Skin: Raghu Score: 13 Active Wounds: Wound Sheath Site 08/02/24 1500 Right Radial (3) Wound Abrasion 08/02/24 2109 Left;Upper Face (3) Edema- None Estimated Nutrition Needs: Based on IBW (61.4kg) Estimated Kcals Needs: 4072-2957 kcals (25-30kcals/kg) Estimated Pro Needs: 74-92g Pro (1.2-1.5g/kg) Estimated Fluid Needs: Per MD Nutrition Focused Physical Exam Completed?: completed Subcutaneous Fat Loss: Orbital Region (Orbital Fat Pads): WDL Cheek Region (Buccal Fat Pads): WDL Upper Arm Region (Triceps): WDL Thoracic and Lumbar Region (Ribs, Lower Back, Midaxillary Line): WDL Muscle Wasting: Denominational Region (Temporalis Muscle): deferred (lac over eyebrow) [...] (AAIM) criteria (2012) ELVIRA Ho, RD, LD, [facility] Pager: [phone] * Rashad Rg MD - 08/05/2024 9:42 [...] Total critical care time 31min. * Shanna Zamudio Teabonigonzalo, FAMILY MEMBER CARETAKER-GAUGE INSPECTOR - 08/05/2024 7:20 AM EDT NEUROCRITICAL [...] Visual richards intact to confrontation. PERRL. 3mm roof foreman III, IV and : EOMI. No nystagmus. [...] Issues O2 Sat (%): 95 % (08/05 06) O2 Device: room air (08/05 599) Flow (L/min): 4 (08/05 1999) - Goal SpO2 >92%; wean FiO2 as tolerated - HOB > 30 degrees, aggressive pulm edema, OOB as toleratd - [id number], encourage pulmonary toileting Cards: Essential HTN HLD [...] TUBE FEEDING with meds (per DHT) - [place] Swallow Screening Result: failed=NPO Bowel regimen: - Last Bowel Movement: (prior to admission) - Senna 17.2 mg Q12H, miralax BID, suppository PRN Stress ulcer prophylaxis: - none Dysphagia - DHT placed - SUPERVISOR ACCOUNTS RECEIVABLE following; NPO continue following, on TF - [...] the assigned neurocritical care provider (resident, fellow, CUTTER OPERATOR BRICK, orPA) or page/call the corresponding number below NCC1 (Beds 3257-9114): [place] # [phone], pager #[phone] NCC2 (Beds 9235-1754, 12 Nando, and overflow): [place] #: [phone], pager #[phone] * Florinda Velasquez, PT - 08/04/2024 1:36 [...] noted Mobility Assessment: Supine to Sit Mobility Sinclair Level: Supine->Sit: moderate assist (50% patient effort) [...] EOB Transfer Assessment: Sit to Stand Transfer Sinclair Level: Sit->Stand: moderate assist (50% patient effort) Physical Assist: Sit->Stand: 2 person assist Assistive Device: Sit->Stand: gait belt, hand held assist Skilled Rationale: Positioning, Sequencing, Hand placement, Verbal cues Skilled Intervention/Details: Sit->Stand: x 1 from EOB Bed-Chair Transfer Sinclair Level: Bed<->Chair: moderate assist (50% patient effort) Physical Assist: Bed<->Chair: 2 person assist Assistive Device: Bed<->Chair: gait belt, hand held assist Skilled Rationale: Positioning, Sequencing, Hand placement, Verbal cues Skilled Intervention/Details: Bed<->Chair: x 2-3 steps from bed to chair Gait/Functional Mobility: Stairs: Outcome Score(s): CURRENT [facility] Basic Mobility Inpatient Short Form [...] with a railin - Total Assistance CURRENT [facility] Mobility Raw Score: 10 CURRENT [facility] Mobility Functional Limitation: 76.75% Impaired [...] current Physical Therapy Discharge Summary. * Dona Aron, OT - 08/04/2024 12:18 PM EDT Acute [...] Edema: Mobility Assessment: Supine to Sit Mobility Sinclair Level: Supine->Sit: moderate assist (50% patient effort) Physical Assist: Supine->Sit: 2 person assist Bed Features/Set-up: Supine->Sit: Head of bed elevated Skilled Rationale: Positioning, Hand placement, Verbal cues, Technique of activity Transfer Assessment: Sit to Stand Transfer Sinclair Level: Sit->Stand: moderate assist (50% patient effort) Physical Assist: Sit->Stand: 2 person assist Assistive Device: Sit->Stand: gait belt, hand held assist Skilled Rationale: Positioning, Hand placement, Verbal cues, Technique of activity Stand to Sit Transfer Sinclair Level: Stand->Sit: moderate assist (50% patient effort) Physical Assist: Stand->Sit: 2 person assist Assistive Device: Stand->Sit: hand held assist Skilled Rationale: Positioning, Hand placement, Verbal cues, Arm in arm, Controlled descent for sitting Bed-Chair Transfer Sinclair Level: Bed<->Chair: moderate assist (50% patient effort) Physical Assist: Bed<->Chair: 2 person assist Assistive Device: Bed<->Chair: gait belt, hand held assist Skilled Rationale: Arm in arm, Patellar block, Technique of activity Skilled Intervention/Details: Bed<->Chair: LLE weakness/blocking of patella with transfer, pivot to right Functional Mobility: Outcome Score(s): CURRENT [facility] Daily Activity Inpatient Short Form Putting on/Taking Off Lower Body Clothin - A Lot of Assistance Bathin - A Lot of Assistance Toiletin - Total Assistance Putting on/Taking Off Upper Body Clothin - A Lot of Assistance Groomin - A Little Assistance Eatin - Total Assistance CURRENT [facility] Activity Raw Score: 11 CURRENT -[facility] Activity Functional Limitation/Modifier: 70.42% Currently [...] OT Evaluation and Treatment Time OT Evaluation ([facility]) Time Entry: 18 Evaluating Therapist: [...] assessment and plan as documented by the CUTTER OPERATOR BRICK with my changes/additions added. Patient is a [...] resp. rate 19, height 1.702 m (5' 7), weight 78.3 kg (172 lb 9.9 oz), [...] ICH x 7 days - Statin - PT/OT/SUPERVISOR ACCOUNTS RECEIVABLE evaluation Pulmonary: No acute issues, appears to [...] and other supportive care as per the CUTTER OPERATOR BRICK note from the same day This patient [...] care services [facility] the [facility] today [facility] and other care providers. Management of the above was performed. My time managing this critically ill patient included review of interval history, laboratories, radiology and cons ultation reports; performing a physical examination; discussing the patient with the multi-disciplinary team and managing life sustaining therapies to prevent imminent clinical deterioration. Richard Mejia MD Neurocritical Care Attending * Balbir Mccoy, JASIEL-GAUGE INSPECTOR - 08/04/2024 7:44 AM EDT NEUROCRITICAL [...] Visual richards intact to confrontation. PERRL. 3mm roof foreman III, IV and : EOMI. No nystagmus. [...] SpO2 >92%; wean FiO2 as tolerated - TFE3TNR, encourage pulmonary toileting Cards: Essential HTN HLD [...] TUBE FEEDING with meds (per DHT) - [place] Swallow Screening Result: failed=NPO Bowel regimen: - Last Bowel Movement: (prior to admission) - Senna 17.2 mg Q12H, miralax at bedtime Stress ulcer prophylaxis: - none Dysphagia - DHT placed - SUPERVISOR ACCOUNTS RECEIVABLE following - Tube feed: Vital AF with [...] the assigned neurocritical care provider (resident, fellow, CUTTER OPERATOR BRICK, orPA) or page/call the corresponding number below NCC1 (Beds 6499-9596): [place] # [phone], pager #[phone] NCC2 (Beds 0682-5690, 12 [address]ando, and overflow): [place] #: [phone], pager #[phone] * Rafael Garcia MD - 08/03/2024 2:16 PM EDT NEUROVASCULAR Consult Daily Progress Note IDENTIFYING INFORMATION Lindsay Acuna MR# [id number] 08/03/2024 HISTORY OF PRESENT ILLNESS Lindsay Acuna is a 78 y.o. female with PMH significant for CAD, HTN, HLD, T2DM, Afib (on Eliquis, although patient reports she has not been taking it) who presents with L hemiplegia, slurred speech. She was last seen normal by her at 0915, later found down with slurred speech and L hemiplegia. She presented to [facility] and was seen on Telestroke, [...] 3.5 08/02/2024 , No results found for: CPK, TROP IMAGING/DIAGNOSTIC STUDIES XR ABDOMEN 1 VIEW PORTABLE [...] speech and L hemiplegia. She presented to [facility] and was seen on Telestroke, [...] workup. Delbert Kasper MD * Nohelia Oconnell, SUPERVISOR ACCOUNTS RECEIVABLE - 08/03/2024 12:09 PM EDT Acute Care SUPERVISOR ACCOUNTS RECEIVABLE Speech/Language/Cognitive Evaluation Best mode of Communication: spoken language (regular speech) Discharge Recommendations: Based on the below outcome measures/assessment score(s) and SUPERVISOR ACCOUNTS RECEIVABLE clinicaljudgment, discharge destination recommendation is: (Skilled speech therapy services at next level of care) Barriers to discharge home: Cognitive impairments that impact safety and independence Supporting factors for discharge setting: Impaired swallow function limiting nutritional status andsafety with oral intake Acute SUPERVISOR ACCOUNTS RECEIVABLE Outcomes Tracking Communicate basic wants and needs?: [...] speech and L hemiplegia. She presented to [facility] and was seen on Telestroke,NIHSS [...] 0 Asthenia (A): 0 Strain (S): 0 SUPERVISOR ACCOUNTS RECEIVABLE Outcomes / Standardized Measures Score The Orientation [...] unable to respond. Total Score: 12 Acute SUPERVISOR ACCOUNTS RECEIVABLE Goals Plan of Care by RIKI Hayes at 08/03/2024 11:25 AM Version 1 of 1 Problem: Dysphagia Goal: Ongoing Assessment - Patient will participate in ongoing assessment by accepting various PO consistency trials with appropriate participation/oral acceptance and no significant respiratory complications to determine readiness for diet advancement Outcome: Ongoing Problem: SUPERVISOR ACCOUNTS RECEIVABLE - Cognition Goal: Orientation Log - Patient [...] better assess deficits and most appropriately guide SUPERVISOR ACCOUNTS RECEIVABLE plan of care Outcome: Ongoing Speech Language [...] of session: bed alarm Needs in reach. SUPERVISOR ACCOUNTS RECEIVABLE Evaluation and Treatment Time Speech Eval - Sound Production W/Lang Comp and Exp 33745: 11 Swallowing Eval 32046: 10 Upon discontinuation of Acute Care Speech [...] on the below outcome measures/assessment score(s) and SUPERVISOR ACCOUNTS RECEIVABLE clinicaljudgment, discharge destination recommendation is: Deferred to PT/OT recomendations related to mobility Current therapy frequency recommendation in acute care: Swallow Therapy Frequency: 5 times a week Acute SUPERVISOR ACCOUNTS RECEIVABLE Outcomes Tracking Communicate basic wants and needs?: yes Demo insight/appreciation of deficits?: no Complete basic problem solving?: no Date of Admission: 08/02/2024 Date of Evaluation: 08/03/2024 Attending Physician: Richard Mejia MD General Patient Information Name: Lidnsay Acuna Gender: female Date of : 1945 [...] speech and L hemiplegia. She presented to [facility] and was seen on Telestroke,NIHSS [...] tiny 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 Prior SUPERVISOR ACCOUNTS RECEIVABLE history: No prior speech history per chart review Current Method of Nutrition: Route of Nutrition: No alternative means Respiratory Status: O2 Sat (%): 94 % (08/03 1100) O2 Device: room air (08/03 1099) Line/Tubes/Drains: [...] and Liquids Trialed Modality Amount Ice Teaspoon, SUPERVISOR ACCOUNTS RECEIVABLE-fed 3x Thin Teaspoon 3x Oral Phase Function [...] Patient presents with presumed pharyngeal phase impairments. [place] Swallow Screen: (administered by: RN) [place] Swallow Screening Screening Exclusion Criteria: none, continue with [place] Swallow Screening Cognitive Screen: Orientation: able to [...] Water Swallow Challenge : coughing/throat clearing-overt signs/symptoms [place] Swallow Screening Result: failed=NPO Voice and Swallow [...] Ok for ice chips with RN supervision. SUPERVISOR ACCOUNTS RECEIVABLE will continue to follow for ongoing dysphagia management. Patient Education/Instruction Learners: Patient Education provided: Dysphagia recommendation risk: benefit analysis, Role of this discipline Teaching method: Verbal Education/Instruction Learner response: Needs review Learning preferences: Auditory Learning considerations: Cognition Plan for next session: 08/03: Good Prognosis, ongoing dysphagia management to determine readiness for diet advancement vs instrumental. Acute SUPERVISOR ACCOUNTS RECEIVABLE Goals Plan of Care by RIKI Hayes at 08/03/2024 11:25 AM Version 1 of 1 Problem: Dysphagia Goal: Ongoing Assessment - Patient will participate in ongoing assessment by accepting various PO consistency trials with appropriate participation/oral acceptance and no significant respiratory complications to determine readiness for diet advancement Outcome: Ongoing Problem: SUPERVISOR ACCOUNTS RECEIVABLE - Cognition Goal: Orientation Log - Patient [...] better assess deficits and most appropriately guide SUPERVISOR ACCOUNTS RECEIVABLE plan of care Outcome: Ongoing Speech Language Pathologist: Nohelia Oconnell, RIKI, [facility] Board Certified Specialist in Swallowing and Swallowing Disorders Available via Watsi Chat Time In: 1130 Time Out: 1151 Total Visit Time: 21 minutes Total Treatment Time (skilled, billable minutes): 21 minutes Non-billable assistance during session: none Assisted by during session: Patient's PPE used during patient interaction: gloves Patient location/status at end of session: bed with head of bed elevated Patient alarms at end of session: bed alarm Needs in reach. SUPERVISOR ACCOUNTS RECEIVABLE Evaluation and Treatment Time Speech Eval - Sound Production W/Lang Comp and Exp 15498: 11 Swallowing Eval 17779: 10 Upon discontinuation of Acute Care Speech Therapy Services or patient discharge from the hospital this note represents the current Speech Therapy Discharge Summary * Richard Mejia MD - 08/03/2024 10:30 AM EDT I have independently seen and examined the patient on 08/03/24. I agree with the history, examination, assessment and plan as documented by the CUTTER OPERATOR BRICK with my changes/additions added. Patient is a [...] the setting of ICH - Statin - PT/OT/SUPERVISOR ACCOUNTS RECEIVABLE evaluation Pulmonary: No acute issues, appears to [...] and other supportive care as per the CUTTER OPERATOR BRICK note from the same day This patient [...] care services to the patient today [facility] and other care providers. Management [...] assistance from spouse Care Management Plan PROGRAM MEDICAL DIRECTOR met with Patient and Spouse at bedside to complete Initial Assessment. They were agreeable to SW visit. Patient was lethargic though able to answer some short questions. Patient consented to Spouse assisting with assessment. Spouse/Patient report that Patient has never completed a HCPOA. They expressed interest, and PROGRAM MEDICAL DIRECTOR will follow to complete document when Patient is more alert and oriented. Spouse reports himself and Patient live in a ranch-style home with strong supports from their community, including 2 neighbors that have assisted at this time. He noted that himself and Patient recently returned from a visit to [facility] for their 50 anniversary. Spouse reports that their 2 children will be visiting soon. PROGRAM MEDICAL DIRECTOR explained SW role and offered resources. Spouse [...] Name and Contact information: Ike Loydond P: [phone] Adult Child(jj), List All Adult Children: Yes Name and Contact information: Donnell Armand P: [phone]; Nathen Armand P: [phone] Would you like to add additional adult [...] Advance Care Planning? : Patient Agreeable (PROGRAM MEDICAL DIRECTOR to follow for HCPOA completion when Patient is more alert and oriented) Medication Management Does the patient have prescription insurance coverage? : Yes Is the patient on Anticoagulation? : Yes (Per chart review, Patient is on anticoagulation but has not been taking it (does not recall the last time she took a dose)) Provider or Clinic that manages Anticoagulation?: (unspecified at this time) [facility] [address] [place] [id number] [address] [facility] [address] [facility] [address] Living Environment and Support System Is the patient from a facility or senior living?: No Living Environment: House (1 bedroom ranch) Patient Caregiving Responsibilities: Self Patient-identified caregiver/support network: Family, Friends, Neighbors, [facility] Who does the patient identify as a [...] themselves at home? : Unable to assess Boilermaker Helper Does the patient or sales representative uniforms express financial concerns? : No Chela Snyder Social Work Student Available by Secure Chat Cosigned by OWEN Keller at 08/03/2024 11:20 AM EDT * Balbir Mccoy APRN-GAUGE INSPECTOR - 08/03/2024 7:40 AM EDT NEUROCRITICAL [...] Visual richards intact to confrontation. PERRL. 3mm roof foreman III, IV and : EOMI. No nystagmus. [...] SpO2 >92%; wean FiO2 as tolerated - [id number], encourage pulmonary toileting Cards: Essential HTN HLD [...] - Bowel regimen: - Last Bowel Movement: (WINDOWS LAPTOP TECHNICIAN) - Senna, miralax Stress ulcer prophylaxis: - none Dysphagia - DHT placed - SUPERVISOR ACCOUNTS RECEIVABLE following - Tube feed: Vital AF with [...] Discussed with NCCU Attending, Dr. Jackie Mccoy, FAMILY MEMBER CARETAKER-GAUGE INSPECTOR 08/03/24 7:40 AM Check the treatment team to find the assigned neurocritical care provider (resident, fellow, CUTTER OPERATOR BRICK, orPA) or page/call the corresponding number below NCC1 (Beds 2986-1079): [place] # [phone], pager #[phone] NCC2 (Beds 0984-6986, 12 [address], and overflow): [place] #: [phone], pager #[phone] * Nando Caceres MD - 08/03/2024 6:00 [...] nccu Neurosurgery signing off Please page NS2 ([id number]) with questions Complexity. Hypocalcemia - Continue to monitor and replete. Any conditions listed below are present on admission unless otherwise specified. . Cosigned by Prema Ramos MD at 08/03/2024 6:37 PM EDT * Andreas Ga [facility] - 08/02/2024 10:57 PM EDT [...] any questions, Name: Andreas Ga RPH Phone: [phone] Date/Time: 08/02/2024 10:57 PM * Richard Mejia MD - 08/02/2024 6:01 PM EDT I have independently seen and examined the patient on 08/02/24. I agree with the history, examination, assessment and plan as documented by the CUTTER OPERATOR BRICK with my changes/additions added. Patient is a [...] to determine stroke burden - Statin - PT/OT/SUPERVISOR ACCOUNTS RECEIVABLE evaluation Pulmonary: No acute issues, appears to [...] stage 3a - Maintain euvolemia GI/Nutrition: - SUPERVISOR ACCOUNTS RECEIVABLE evaluation - Bowel regimen to prevent constipation [...] and other supportive care as per the CUTTER OPERATOR BRICK note from the same day This patient [...] Neurocritical Care Attending documented in this [facility]03-29-2025 Consult note* Niru Koch MD [...] today. Consent obtained by at bedside. - SUPERVISOR ACCOUNTS RECEIVABLE eval: none - RD eval: none PAST [...] dependence ASSESSMENT/RECOMMENDATIONS: - primary team feels that assisted enteric nutrition is warranted in s/o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 Medical Center07-16-2024 History of Present illness Narrative* [...] adenoma; duefor colonoscopy; will contact GI in [place] Lipid: Does not watch diet or exercise. [...] kidney disease, unspecified CKD stage, unspecified whether assisted insulin use (HCC) - ICD9: 250.40, 585.9, [...] Histories independently gathered by the clinical senior technical support analyst and the remaining scribed note [...] AM. Adenike Walton MA documented in this encounterCommunity Regional Medical Center07-16-2024 NoteHNO ID: [id number] Author: KAMERON CARUSO MD Service: ? Author [...] due for colonoscopy; will contact GI in [place] Lipid: Does not watch diet or exercise. [...] 1 tablet by mouth once daily. lancets (MAPPER LithographyTOUCH DELICA PLUS LANCET) 30 gauge Test blood [...] alert, in no acute (more content not included)...[facility]05-28-2024 NoteHNO ID: [id number] Author: DAVID DUPREE APRN.GAUGE INSPECTOR Service: ? Author Type: Nurse Practitioner [...] mouth daily before breakfast. blood sugar diagnostic (Knowledge Delivery SystemsUCH ULTRA TEST) test strip Test Blood Sugar [...] 1 tablet by mouth once daily. lancets (MAPPER LithographyTOUCH DELICA PLUS LANCET) 30 gauge Test blood sugars 1 time daily. Dx: Type 2 DM Controlled E11.9. Insulin: no Chlorhexidine Gluconate (PERIDEX) 0.12 % solution Use 15 mL as instructed twice daily. Rinse around mouth for 30 seconds then expectorate blood sugar diagnostic (MAPPER LithographyTOUCH ULTRA TEST STRIP) test strip Use to [...] linear pattern noted highlighted (more content not included)...[facility] 10-10-2023 History of Present illness Narrative* David Dupree APRN.[facility] - 10/10/2023 7:36 AM EDT Images from [...] 1 tablet by mouth once daily. lancets (Knowledge Delivery SystemsUCH DELICA PLUS LANCET) 30 gauge Test blood [...] of care. This note was generated using TEAM INTERVAL software. It may contain errors in wording, punctuation, or spelling. David Dupree APRN.GAUGE INSPECTOR documented in this encounterCommunity Regional Medical Center05-17-2024 NoteHNO ID: [id number] Author: RADHA LEVINE APRN.GARRETT Service: ? Author Type: Nurse Practitioner Type: Progress Notes Filed: 09/29/2023 18:12 Note Text: This note was created using [employer]Card[employer]. Subjective Lindsay Acuna is a 77 year old female. 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 Denies fever or chills Denies malaise or fatigue Denies new lotions, soaps, or medicines States that she was working out in the garden the same day the rash erupted. The history is provided by the patient. No sign language interpreter was used. Rash This is [...] mouth daily before breakfast. blood sugar diagnostic (Knowledge Delivery SystemsUCH ULTRA TEST) test strip Test Blood Sugar [...] 1 tablet by mouth once daily. lancets (Knowledge Delivery SystemsUCH DELICA PLUS LANCET) 30 gauge Test blood [...] kg/m? Physical Exam Vitals (more content not included)...[facility]05-17-2024 History of Present illness Narrative* Radha Levine APRN.GAUGE INSPECTOR - 09/29/2023 2:32 PM EDT This note was created using NoteWriter. Subjective Lindsay Acuna is a 77 year old female. 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 Denies fever or chills Denies malaise or fatigue Denies new lotions, soaps, or medicines States that she was working out in the garden the same day the rash erupted. The history is provided by the patient. No sign language interpreter was used. Rash This is [...] mouth daily before breakfast. blood sugar diagnostic (CipherApps ULTRA TEST) test strip Test Blood Sugar [...] 1 tablet by mouth once daily. lancets (MAPPER LithographyTOUCH DELICA PLUS LANCET) 30 gauge Test blood sugars 1 time daily. Dx: Type 2 DM Controlled E11.9. Insulin: no Chlorhexidine Gluconate (PERIDEX) 0.12 % solution Use 15 mL as instructed twice daily. Rinse aroundmouth for 30 seconds then expectorate blood sugar diagnostic (MAPPER LithographyTOUCH ULTRA TEST STRIP) test strip Use to [...] worsen. Radha Levine APRN.CNP documented in this encounter[facility] Telephone encounter Note * Telephone Encounter - Mj Glover APRN.CNP - 09/19/2023 9:46 AM EDT The following approved medication requests have been transmitted electronically. Requested Prescriptions Pending Prescriptions Disp Refills glimepiride (AMARYL) 2 mg tablet 90 tablet 3 Sig: Take 1 tablet by mouth daily with breakfast. Mj Glover APRN.CNP [facility] Miscellaneous Notes* Telephone Encounter - [...] you. Brigitte Dorsey RN. documented in this encounterCommunity [facility] Center05-[facility]-2024 Telephone encounter Note * Telephone [...] Please advise. Thank you. Brigitte Dorsey RN. [facility] Miscellaneous Notes* Telephone Encounter - Kameron Caruso MD - 04/08/2023 11:04 AM EST OK to refill as ordered Kameron Caruso MD * Telephone Encounter - Carmencita Baker LPN - 04/08/2023 10:57 AM EST Pt calling for refills. Last seen pcp 11/25/22. Next appt with pcp 05/30/23. documented in this encounterCommunity [facility] Center07-14-2023 Miscellaneous Notes* Telephone Encounter - Kameron Caruso MD - 11/25/2022 11:58 AM EDT Done Kameron Caruso MD * Telephone Encounter - Jaiden Paulino RN - 11/25/2022 10:43 AM EDT Patient asking pcp if you can cancel the jardiance on her med list, because it shows up on her MyChart, and she does not take it. documented in this encounterCommunity [facility] Center01-13-2023 History of Present illness Narrative* [...] to Visit Medication Sig blood sugar diagnostic (MAPPER LithographyTOUCH ULTRA TEST) test strip Test Blood Sugar [...] BY MOUTH ONCE DAILY WITH BREAKFAST lancets (MAPPER LithographyTOUCH DELICA PLUS LANCET) 30 gauge Test blood [...] Moderate Kameron Caruso MD documented in this encounterCommunity [facility] Center11-28-2022 Miscellaneous Notes* Telephone Encounter - [...] LPN * Telephone Encounter - Goldie Gallegos [facility] [place] 04/11/2022 8:49 AM EST Patient has been identified by name and date of : Yes Requested Prescriptions No prescriptions requested or ordered in this encounter RX INSTRUCTIONS: Patient aware RX will be sent to pharmacy. No need to notify patient. [facility]ie [facility] Electronically signed by [facility]ie [facility] [place] 04/11/2022 8:52 AM EST documented in this encounterCommunity [facility] Center10-19-2022 Instructions* Patient Instructions* Emma Sotomayor APRN.GARRETT - 03/02/2022 11:11 AM EDT Start prednisone taper, take with food. May use Tylenol while taking the steroid. May use flexeril 3 times daily as needed for muscle tension. May make you sleepy. You were given Toradol in the office. Apply heat to the area. Follow up if symptoms do not improve. documented in this encounterCommunity [facility] Medical Center10-19-2022 History of Present illness Narrative* [...] the legs. Has has not tried any gqzp-efg-ncefeym analgesia, refers that she does not like [...] BY MOUTH ONCE DAILY WITH BREAKFAST lancets (MAPPER LithographyTOUCH DELICA PLUS LANCET) 30 gauge Test blood [...] APRN.GARRETT This note was partially generated using TEAM INTERVAL voice recognition system. Note was reviewed for accuracy. There may be minor misspellings or grammar miscues with Dragon voice recognition. documented in this encounterCommunity [facility] Medical Center10-19-2022 Miscellaneous Notes* Telephone Encounter - Michelle Hu RN - 03/02/2022 10:00 AM EDT Triage Protocol Recommended: See provider within 4 hours for evaluation. Patient made appt with Emma Sootmayor for 10:40am today. Please call patient if [...] urine 11. : no Protocols used: Back [id number] documented in this encounterCommunity [facility] Center08-30-2022 Miscellaneous Notes* Telephone Encounter - [...] patient. Aditi Conley Pss documented in this encounterCommunity Regional Medical Center08-30-2022 Miscellaneous Notes* Telephone Encounter - [...] ONCE DAILY WITH BREAKFAST documented in this encounterCommunity Regional Medical Center08-04-2022 Miscellaneous Notes* Telephone Encounter - [...] request. Brigitte Dorsey RN documented in this encounterCommunity [facility] Medical Center07-12-2022 Miscellaneous Notes* Telephone Encounter - [...] [facility] Chlorhexidene Gluconate 0.12% Patient was instructed to contact office after her appointment with name of medication. PCP agreed to fill Please advise documented in this encounterCommunity [facility] Medical Center07-12-2022 History of Present illness Narrative* Kameron Caruso MD - 11/23/2021 9:40 AM EDT Chief Complaint Patient presents with: F/U 6 Month HPI Lindsay Acuna is a 76 year old female who presents here today for a 6 month follow up. Pt here today for a 6 month follow up. Recently back from [facility]. Was told by Natives to not take [...] doing much exercise. When she was in [facility] [place] [facility] they had to go up 207 steps, [...] kidney disease, unspecified CKD stage, unspecified whether assisted insulin use (HCC) - ICD9: 250.40, 585.9, [...] Histories independently gathered by the clinical senior technical support analyst and the remaining scribed note [...] AM. Adenike Walton Ma documented in this encounterCommunity [facility] Center06-02-2022 Miscellaneous Notes* Telephone Encounter - Kameron Caruso MD - 10/14/2021 9:34 AM EDT Order filed Kameron Caruso MD * Telephone Encounter - Adenike Walton Ma - 10/14/2021 9:20 AM EDT Pt stopped in the office and is requesting a new meter to be sent into [facility]. Pt uses OneTouch Meter. Adenike Walton Ma documented in this encounterCommunity [facility] Medical Center05-31-2022 Miscellaneous Notes* Telephone Encounter - [...] where they were going to go to [facility] they have closed the border there and they are now going to [facility]. 1. Please advise if they have to [...] back. Shreya Barrios LPN documented in this encounterCommunity [facility] Medical Center05-09-2022 Miscellaneous Notes* Telephone Encounter - [...] Please call and advise. documented in this encounterCommunity [facility] Medical Center06-22-2021 History of Past illness Narrative* Problem Noted Date Resolved Date Hypertensive kidney disease with stage 3 chronic kidney disease 11/03/2020 11/05/2020 Diabetes mellitus with renal complications 05/0111/03/2020 PURE HYPERCHOLESTEROLEM 11/27/19 14 DIABETES MELLITUS TYPE II-UNCOMPL 11/26/2013 documented as of this encounter (statuses as of 09/20/2021) [facility] of Past illness Narrative* Problem Noted Date Resolved Date Hypertensive kidney disease with stage 3 chronic kidney disease 11/03/2020 11/05/2020 Diabetes mellitus with renal complications 05/0111/03/2020 PURE HYPERCHOLESTEROLEM 11/27/19 14 DIABETES MELLITUS TYPE II-UNCOMPL 11/26/2013 documented as of this encounter (statuses as of 10/12/2021) [facility] of Past illness Narrative* Problem Noted Date Resolved Date Hypertensive kidney disease with stage 3 chronic kidney disease 11/03/2020 11/05/2020 Diabetes mellitus with renal complications 05/0111/03/2020 PURE HYPERCHOLESTEROLEM 11/27/19 14 DIABETES MELLITUS TYPE II-UNCOMPL 11/26/2013 documented as of this encounter (statuses as of 10/14/2021) [facility] of Past illness Narrative* Problem Noted Date Resolved Date Hypertensive kidney disease with stage 3 chronic kidney disease 11/03/2020 11/05/2020 Diabetes mellitus with renal complications 05/0111/03/2020 PURE HYPERCHOLESTEROLEM 11/27/19 14 DIABETES MELLITUS TYPE II-UNCOMPL 11/26/2013 documented as of this encounter (statuses as of 11/23/2021) [facility] of Past illness Narrative* Problem Noted Date Resolved Date Hypertensive kidney disease with stage 3 chronic kidney disease 11/03/2020 11/05/2020 Diabetes mellitus with renal complications 05/0111/03/2020 PURE HYPERCHOLESTEROLEM 11/27/19 14 DIABETES MELLITUS TYPE II-UNCOMPL 11/26/2013 documented as of this encounter (statuses as of 11/23/2021) [facility] of Past illness Narrative* Problem Noted Date Resolved Date Hypertensive kidney disease with stage 3 chronic kidney disease 11/03/2020 11/05/2020 Diabetes mellitus with renal complications 05/0111/03/2020 PURE HYPERCHOLESTEROLEM 11/27/19 14 DIABETES MELLITUS TYPE II-UNCOMPL 11/26/2013 documented as of this encounter (statuses as of 12/16/2021) [facility] of Past illness Narrative* Problem Noted Date Resolved Date Hypertensive kidney disease with stage 3 chronic kidney disease 11/03/2020 11/05/2020 Diabetes mellitus with renal complications 05/0111/03/2020 PURE HYPERCHOLESTEROLEM 11/27/19 14 DIABETES MELLITUS TYPE II-UNCOMPL 11/26/2013 documented as of this encounter (statuses as of 01/11/2022) [facility] of Past illness Narrative* Problem Noted Date Resolved Date Hypertensive kidney disease with stage 3 chronic kidney disease 11/03/2020 11/05/2020 Diabetes mellitus with renal complications 05/0111/03/2020 PURE HYPERCHOLESTEROLEM 11/27/19 14 DIABETES MELLITUS TYPE II-UNCOMPL 11/26/2013 documented as of this encounter (statuses as of 01/11/2022) [facility] of Past [facility] Narrative* Problem Noted Date Resolved Date Hypertensive kidney disease with stage 3 chronic kidney disease 11/03/2020 11/05/2020 Diabetes mellitus with renal complications 05/0111/03/2020 PURE HYPERCHOLESTEROLEM 11/27/19 14 DIABETES MELLITUS TYPE II-UNCOMPL 11/26/2013 documented as of this encounter (statuses as of 03/02/2022) [facility] of Past [facility] Narrative* Problem Noted Date Resolved Date Hypertensive kidney disease with stage 3 chronic kidney disease 11/03/2020 11/05/2020 Diabetes mellitus with renal complications 05/0111/03/2020 PURE HYPERCHOLESTEROLEM 11/27/19 14 DIABETES MELLITUS TYPE II-UNCOMPL 11/26/2013 documented as of this encounter (statuses as of 03/02/2022) [facility] Narrative* Problem Noted Date Resolved Date Hypertensive kidney disease with stage 3 chronic kidney disease 11/03/2020 11/05/2020 Diabetes mellitus with renal complications 05/0111/03/2020 PURE HYPERCHOLESTEROLEM 11/27/19 14 DIABETES MELLITUS TYPE II-UNCOMPL 11/26/2013 documented as of this encounter (statuses as of 04/11/2022) [facility] of Past illness Narrative* Problem Noted Date Resolved Date Hypertensive kidney disease with stage 3 chronic kidney disease 11/03/2020 11/05/2020 Diabetes mellitus with renal complications 05/0111/03/2020 PURE HYPERCHOLESTEROLEM 11/27/19 14 DIABETES MELLITUS TYPE II-UNCOMPL 11/26/2013 documented as of this encounter (statuses as of 05/27/2022) [facility] Narrative* Problem Noted Date Diagnosed Date Resolved Date Hypertensive kidney disease with stage 3 chronic kidney disease 11/03/2020 11/05/2020 Diabetes mellitus with renal complications 05/01/2014 11/03/2020 PURE HYPERCHOLESTEROLEM 07/09/2013 DIABETES MELLITUS TYPE II-UNCOMPL 11/26/2013 documented as of this encounter (statuses as of 11/25/2022) [facility] Narrative* Problem Noted Date Diagnosed Date Resolved Date Hypertensive kidney disease with stage 3 chronic kidney disease 11/03/2020 11/05/2020 Diabetes mellitus with renal complications 05/01/2014 11/03/2020 PURE HYPERCHOLESTEROLEM 07/1 09/2013 DIABETES MELLITUS TYPE II-UNCOMPL 11/26/2013 documented as of this encounter (statuses as of 04/08/2023) [facility] illness Narrative* Problem Noted Date Diagnosed Date Resolved Date Hypertensive kidney disease with stage 3 chronic kidney disease 11/03/2020 11/05/2020 Diabetes mellitus with renal complications 05/01/2014 11/03/2020 PURE HYPERCHOLESTEROLEM 07/1 09/2013 DIABETES MELLITUS TYPE II-UNCOMPL 11/26/2013 documented as of this encounter (statuses as of 04/08/2023) [facility] Author Pieter Morgan [facility] Note Date/Time August 02, 2024 1:1 6pm [facility] Medical Records Department [address] [place] [address] Emergency Department Summary 08/02/24 MR#: [id number] Acct: [id number] Name: LINDSAY ACUNA Rep #:[id number] : [...] the EMR. states they returned home from [facility] about 1.5-2 weeks ago, and they both had colds. He is better, but she is on round 2. [facility] Medical History Paroxysmal atrial [...] 71.4 H Lymph % (Auto) 17.9 L Banks % (Auto) 8.9 Eos % (Auto) 1.0 [...] on 08/02/2024 at 1250 hours. Reading [facility] Head/Neck CTA 08/02/24 12:24 IMPRESSION: RIGHT CAROTID: Mild degree of calcific plaque at the origin of the right internal carotid artery. LEFT CAROTID: Mild degree of calcific plaque at the origin of the left internal carotid artery. VERTEBRALS: Dominant left vertebral artery INTRACRANIAL: Unremarkable Other impression: No significant stenosis seen. Reading Location: [facility] Rhythm Strip Rhythm Strip: A-fib Rate: 90 Ectopy: None EKG Initial EKG: Attestation: I personally reviewed and interpreted this EKG as follows: Interpretation: No Acute Injury Pattern, Atrial Fibrillation and Non-Specific ST Changes Management Discussion w/another healthcare provider: Grab Jack Man ([facility] stroke neurology) and Radiologist Stroke Documentation [...] min), Including time spent:, Discussing w/Patient &/or Family/Tube Blower, Discussing w/Consultants, Arranging Admission or Transfer and [...] MD [Primary Care Provider] - Print Language: Moroccan Disposition Disposition: Acute Care Hospital Discharge Location: [facility] [place] What to do if you have Problems For any increased pain, shortness of breath, bleeding, nausea or vomiting, chestpain, or any unexpected problems, contact your Primary Care Provider. Call [facility] ([phone]) or report to the closest Emergency Room. Call 911 if necessary. 08/02/24 1316 <Electronically signed by Pieter Morgan MD> Cosigner Signature (if applicable): CC: Dr. Kameron Caruso MD ~ Signed [facility] Work Phone: Evaluation note* Diagnosis Need for vaccination- Primary Need for prophylactic vaccination and inoculation against unspecified single disease documented [facility] this encounter [facility]* Diagnosis Type 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, unspecified CKD stage, unspecified whether assisted insulin use (HCC)- Primary Essential hypertension, benign Hyperlipidemia, unspecified hyperlipidemia type Stage 3b chronic kidney disease (HCC) Hypothyroidism, unspecified type Memory loss documented in this encounter [facility]* Diagnosis Type 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, unspecified CKD stage, unspecified whether assisted insulin use (HCC)- Primary documented in this encounter [facility]* Diagnosis Hyperlipidemia, unspecified hyperlipidemia type Essential hypertension, benign Type 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, unspecified CKD stage, unspecified whether assisted insulin use (HCC) documented in this encounter [facility]* Diagnosis Type 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, unspecified CKD stage, unspecified whether assisted insulin use (HCC) Essential hypertension, benign Hyperlipidemia, unspecified hyperlipidemia type documented in this encounter [facility]* Diagnosis Acute midline low back pain without sciatica- Primary documented in this encounter [facility]* Diagnosis Type 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, unspecified CKD stage, unspecified whether assisted insulin use (HCC)- Primary documented in this encounter [facility]* Diagnosis Essential hypertension, benign- Primary Hypothyroidism, unspecified type Type 2 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, without long-term current use of insulin (HCC) Hyperlipidemia, unspecified hyperlipidemia type Chronic kidney disease, stage 3a (HCC) Edema of left lower leg Wellness examination [facility]* Diagnosis Type 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, unspecified CKD stage, unspecified whether assisted insulin use (HCC) documented in this encounter [facility]* Diagnosis Allergic contact dermatitis due to plant- Primary Contact dermatitis and other eczema due to plants (except food) documented in this encounter [facility] note* Diagnosis Rash- Primary Rash and other nonspecific skin eruption documented in this encounter [facility] note* Diagnosis Type 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, unspecified CKD stage, unspecified whether assisted insulin use (HCC)- Primary Essential hypertension, benign Chronic kidney disease, stage 3a (HCC) Hyperlipidemia, unspecified hyperlipidemia type Hypothyroidism, unspecified type Edema of left lower leg Memory loss documented in this encounter [facility] note* Diagnosis Essential hypertension, benign- [...] unspecified type (HCC) documented in this encounter [facility] note* Diagnosis Atrial fibrillation, unspecified type (HCC)- Primary Hypothyroidism, unspecified type Need for malaria prophylaxis documented in this encounter [facility] note* Diagnosis History of traveler's diarrhea- Primary Personal history of other diseases of digestive system documented in this encounter [facility] note* Diagnosis History of traveler's diarrhea Personal history of other diseases of digestive system documented in this encounter [facility] noteNo assessment information availableWMorrow County Hospital Work Phone: Evaluation note* Diagnosis Acute ischemic right MCA stroke- Primary Unspecified cerebral artery occlusion with cerebral infarction Cerebrovascular accident (CVA), unspecified mechanism Renal disease (High Serum Creatinine) Unspecified disorder of kidney and ureter Type 2 diabetes mellitus with hyperglycemia Type II or unspecified type diabetes mellitus without mention of complication, not stated as uncontrolled [facility] Narrative No data available for this section [facility] Reason for referral (narrative)* Outpatient Procedure (Routine) - Pending Review Specialty Diagnoses / Procedures Referred By Qiana t [facility]erred [facility] Diagnoses Atrial fibrillation, unspecified type (HCC) Procedures ECHO ECHO TTHRC R-T 2D W/WOM-MODE COMPL SPEC&COLR D Kameron Caruso MD [address] [place] [address] [facility] [place] [address] [place] [address] Referral ID Status Reason Start Date Expiration Date Visits Requested Visits Authorized [id number] Pending Review Auto-Generat ed Referral 05/31/2024 05/31/2025 1 1 * Outpatient Procedure (Routine) - New Request Specialty Diagnoses / Procedures Referred By Qiana almodovar Referred [facility] Diagnoses Irregular heart beat Procedures ECG COMPLETE ECG ROUTINE ECG W/LEAST 12 LDS W/I&R Kameron Caruso MD [address] [place] [address] [facility] [place] [address] [place] [address] Referral ID Status Reason Start Date Expiration Date Visits Requested Visits Authorized [id number] New Request Auto-Generat ed Referral 05/31/2024 05/31/2025 1 1 [facility])No reason for referral information availableWMorrow County Hospital Work Phone: Reason for visit Narrative* Auth/Cert Specialty Diagnoses / Procedures Referred By Qiana almodovar Referred To Contact Diagnoses Acute ischemic right MCA stroke Cerebrovascular Accident (Level A Ishemic Stroke) Prema Rodgers MD [address] [place] [address] Phone: tel: fax: [facility] [address] [place] [address] Referral ID Status Reason Start Date Expiration Date Visits Re quested Visits Authorized [id number] 1 1 [facility] Summary Purpose Family History No Family History Records Found Relationship Condition Age at Onset Recorded Date/T monse mother Diabetes mellitus Unknown Hypertension Unknown Psychiatric disorder Unknown grandmother Malignant neoplasm Unknown sister Disorder of thyroid Unknown Advance Directives No Advanced Directives Records FoundDocuments on File Type Date Recorded Patient Loading Inspector 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 Advance Directives and Living Will Power of Theater Education Teacher Latest Code Status on File Code Status Date Activated Date Inactivated Comments Full Code 01/09/2019 10:16 AM Latest Code Status on File Code Status Date Activated Date Inactivated Comments Full Code 10/16/2019 9:16 AM Full Code 01/09/2019 10:16 AM 01/09/2019 2:23 PM Documents on File Type Date Recorded Patient Loading Inspector 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 Advance Directive(s) 11/07/2018 6:45 AM Advance Directive(s) 09/29/2015 10:09 PM Advance Directive Response Recorded Date/ Time Living Will No August 02, 2024 12:46pm Do you have a Healthcare Power of Theater Education Teacher? No August 02, 2024 12:46pm Date Activated [...] patient had a polyp identified by on {time:30934}. Biopsies {are/were w not:9034} taken. The patient's usual bowel pattern is {bowel pattern:99824}. Bowel movements {bowel changes:21142} . {abd pain:95361}. The patient has noted{bleeding with BM:97796}. The patient {does/do/not:68396} have a family history of colon polyps. The patient {does/do/not:15034} have a family history of colon cancer. [...] WORK September 10, 2024 5:0 0am [facility] October 02, 2024 9:29a m Chief Complaint [...] WORK October 01, 2024 5:00a m [facility] October 02, 2024 9:29a m LAB WORK October 08, 2024 5:00a m MONTHLY EXAM October 09, 2024 5:45p m CUSTODIAL LAB WORK October 15, 2024 5:0 0am CUSTODIAL LAB WORK October 22, 2024 5: 00am CUSTODIAL LAB WORK October 23, 2024 5: 00am CUSTODIAL LAB WORK October 29, 2024 5: 00am [...] WORK October 01, 2024 5:00a m [facility] October 02, 2024 9:29a m LAB WORK October 08, 2024 5:00a m MONTHLY EXAM October 09, 2024 5:45p m CUSTODIAL LAB WORK October 15, 2024 5:0 0am CUSTODIAL LAB WORK October 22, 2024 5: 00am CUSTODIAL LAB WORK October 23, 2024 5: 00am CUSTODIAL LAB WORK October 29, 2024 5: 00am NEW CONCERN October 30, 2024 6:00 pm CUSTODIAL LAB WORK November 12, 2024 5:0 0am [...] WORK October 01, 2024 5:00a m AFIB ([facility]) October 02, 2024 9:29a m LAB WORK October 08, 2024 5:00a m MONTHLY EXAM October 09, 2024 5:45p m CUSTODIAL LAB WORK October 15, 2024 5:0 0am CUSTODIAL LAB WORK October 22, 2024 5: 00am NEW CONCERN October 22, 2024 12:4 5pm CUSTODIAL LAB WORK October 23, 2024 5: 00am CUSTODIAL LAB WORK October 29, 2024 5: 00am NEW CONCERN October 30, 2024 6:00 pm CUSTODIAL LAB WORK November 12, 2024 5:0 0am [...] WORK October 01, 2024 5:00a m AFIB ([facility]) October 02, 2024 9:29a m LAB WORK October 08, 2024 5:00a m MONTHLY EXAM October 09, 2024 5:45p m CUSTODIAL LAB WORK October 15, 2024 5:0 0am CUSTODIAL LAB WORK October 22, 2024 5: 00am NEW CONCERN October 22, 2024 12:4 5pm CUSTODIAL LAB WORK October 23, 2024 5: 00am CUSTODIAL LAB WORK October 29, 2024 5: 00am FU VISIT October 29, 2024 7:15 pm NEW CONCERN October 30, 2024 6:00 pm CUSTODIAL LAB WORK November 12, 2024 5:0 0am Chief Complaint Admit Date LAB WORK September 10, 2024 5:0 0am ADMISSION EXAM September 10, 2024 12: 49pm ADMISSION EXAM September 11, 2024 3:0 8pm LAB WORK September 17, 2024 5:00am LABWORK September 24, 2024 5:00a m LAB WORK September 29, 2024 5:44p m LAB WORK October 01, 2024 5:00a m AFIB ([facility]) October 02, 2024 9:29a m LAB WORK October 08, 2024 5:00a m MONTHLY EXAM October 09, 2024 5:45p m CUSTODIAL LAB WORK October 15, 2024 5:0 0am CUSTODIAL LAB WORK October 22, 2024 5: 00am NEW CONCERN October 22, 2024 12:4 5pm CUSTODIAL LAB WORK October 23, 2024 5: 00am CUSTODIAL LAB WORK October 29, 2024 5: 00am FU VISIT October 29, 2024 7:15 pm NEW CONCERN October 30, 2024 6:00 pm CUSTODIAL LAB WORK November 05, 2024 5: 00am CUSTODIAL LAB WORK November 12, 2024 5:0 0am CUSTODIAL LAB WORK November 19, 2024 4:0 0am New Concern November 20, 2024 10:49 am LABWORK November 25, 2024 2:00 am CUSTODIAL LAB WORK November 26, 2024 5: 20am CUSTODIAL LAB WORK December 03, 2024 5: 00am Chief Complaint Admit Date LAB WORK September 10, 2024 5:0 0am ADMISSION EXAM September 10, 2024 12: 49pm ADMISSION EXAM September 11, 2024 3:0 8pm LAB WORK September 17, 2024 5:00am LABWORK September 24, 2024 5:00a m LAB WORK September 29, 2024 5:44p m LAB WORK October 01, 2024 5:00a m [facility] October 02, 2024 9:29a m LAB WORK October 08, 2024 5:00a m MONTHLY EXAM October 09, 2024 5:45p m CUSTODIAL LAB WORK October 15, 2024 5:0 0am CUSTODIAL LAB WORK October 22, 2024 5: 00am NEW CONCERN October 22, 2024 12:4 5pm CUSTODIAL LAB WORK October 23, 2024 5: 00am CUSTODIAL LAB WORK October 29, 2024 5: 00am FU VISIT October 29, 2024 7:15 pm NEW CONCERN October 30, 2024 6:00 pm CUSTODIAL LAB WORK November 05, 2024 5: 00am CUSTODIAL LAB WORK November 12, 2024 5:0 0am CUSTODIAL LAB WORK November 19, 2024 4:0 0am New Concern November 20, 2024 10:49 am LABWORK November 25, 2024 2:00 am CUSTODIAL LAB WORK November 26, 2024 5: 20am New Concern November 28, 2024 4:43 pm CUSTODIAL LAB WORK December 03, 2024 5: 00am Additional Source Comments INFORMATION SOURCE (unrecogn ized section and content) DATE CREATED AUTHOR 08/31/2018 [facility] ([place]) DATE CREATED AUTHOR AUTHOR'S ORGANIZ ATION 10/18/2019 [facility] DATE CREATED AUTHOR AUTHOR'S ORGANIZ ATION 08/04/2024 [employer] [facility] DATE CREATED AUTHOR AUTHOR'S ORGANIZ ATION 08/07/2024 [facility] DATE CREATED AUTHOR AUTHOR'S ORGANIZ ATION 09/01/2024 [facility] DATE CREATED AUTHOR AUTHOR'S ORGANIZ ATION 10/13/2024 [facility] DATE CREATED AUTHOR AUTHOR'S ORGANIZ ATION 11/08/2024 [facility] DATE CREATED AUTHOR AUTHOR'S ORGANIZ ATION 01/01/2025 [facility] Source Comments (unrecognize d section and content) In the event this informatio n is protected by the Federal Confidentiality of Alcohol and Drug Abuse Patient Records regulations: The Federal rules restrict any use of the information to criminally investigate or prosecute any alcohol or drug abuse patient.[facility] Center[facility] the event this information is protected by the Federal Confidentiality of Alcohol and Drug Abuse Patient Records regulations: The Federal rules restrict any use of the information to criminally investigate or prosecute any alcohol or drug abuse patient.[facility] CenterIn the event this information is protected by the Federal Confidentiality of Alcohol and Drug Abuse Patient Records regulations: The Federal rules restrict any use of the information to criminally investigate or prosecute any alcohol or drug abuse patient.[facility] CenterIn the event this information is protected by the Federal Confidentiality of Alcohol and Drug Abuse Patient Records regulations: The Federal rules restrict any use of the information to criminally investigate or prosecute any alcohol or drug abuse patient.[facility] CenterIn the event this information is protected by the Federal Confidentiality of Alcohol and Drug Abuse Patient Records regulations: The Federal rules restrict any use of the information to criminally investigate or prosecute any alcohol or drug abuse patient.[facility] CenterIn the event this information is protected by the Federal Confidentiality of Alcohol and Drug Abuse Patient Records regulations: The Federal rules restrict any use of the information to criminally investigate or prosecute any alcohol or drug abuse patient.[facility] CenterIn the event this information is protected by the Federal Confidentiality of Alcohol and Drug Abuse Patient Records regulations: The Federal rules restrict any use of the information to criminally investigate or prosecute any alcohol or drug abuse patient.[facility] CenterIn the event this information is protected by the Federal Confidentiality of Alcohol and Drug Abuse Patient Records regulations: The Federal rules restrict any use of the information to criminally investigate or prosecute any alcohol or drug abuse patient.[facility] CenterIn the event this information is protected by the Federal Confidentiality of Alcohol and Drug Abuse Patient Records regulations: The Federal rules restrict any use of the information to criminally investigate or prosecute any alcohol or drug abuse patient.[facility] CenterIn the event this information is protected by the Federal Confidentiality of Alcohol and Drug Abuse Patient Records regulations: The Federal rules restrict any use of the information to criminally investigate or prosecute any alcohol or drug abuse patient.[facility] CenterIn the event this information is protected by the Federal Confidentiality of Alcohol and Drug Abuse Patient Records regulations: The Federal rules restrict any use of the information to criminally investigate or prosecute any alcohol or drug abuse patient.[facility] CenterIn the event this information is protected by the Federal Confidentiality of Alcohol and Drug Abuse Patient Records regulations: The Federal rules restrict any use of the information to criminally investigate or prosecute any alcohol or drug abuse patient.[facility] CenterIn the event this information is protected by the Federal Confidentiality of Alcohol and Drug Abuse Patient Records regulations: The Federal rules restrict any use of the information to criminally investigate or prosecute any alcohol or drug abuse patient.[facility] CenterIn the event this information is protected by the Federal Confidentiality of Alcohol and Drug Abuse Patient Records regulations: The Federal rules restrict any use of the information to criminally investigate or prosecute any alcohol or drug abuse patient.[facility] CenterIn the event this information is protected by the Federal Confidentiality of Alcohol and Drug Abuse Patient Records regulations: The Federal rules restrict any use of the information to criminally investigate or prosecute any alcohol or drug abuse patient.[facility] CenterIn the event this information is protected by the Federal Confidentiality of Alcohol and Drug Abuse Patient Records regulations: The Federal rules restrict any use of the information to criminally investigate or prosecute any alcohol or drug abuse patient.[facility] CenterIn the event this information is protected by the Federal Confidentiality of Alcohol and Drug Abuse Patient Records regulations: The Federal rules restrict any use of the information to criminally investigate or prosecute any alcohol or drug abuse patient.[facility] CenterIn the event this information is protected by the Federal Confidentiality of Alcohol and Drug Abuse Patient Records regulations: The Federal rules restrict any use of the information to criminally investigate or prosecute any alcohol or drug abuse patient.[facility] CenterIn the event this information is protected by the Federal Confidentiality of Alcohol and Drug Abuse Patient Records regulations: The Federal rules restrict any use of the information to criminally investigate or prosecute any alcohol or drug abuse patient.[facility] CenterIn the event this information is protected by the Federal Confidentiality of Alcohol and Drug Abuse Patient Records regulations: The Federal rules restrict any use of the information to criminally investigate or prosecute any alcohol or drug abuse patient.[facility] CenterIn the event this information is protected by the Federal Confidentiality of Alcohol and Drug Abuse Patient Records regulations: The Federal rules restrict any use of the information to criminally investigate or prosecute any alcohol or drug abuse patient.[facility] CenterIn the event this information is protected by the Federal Confidentiality of Alcohol and Drug Abuse Patient Records regulations: The Federal rules restrict any use of the information to criminally investigate or prosecute any alcohol or drug abuse patient.[facility] CenterIn the event this information is protected by the Federal Confidentiality of Alcohol and Drug Abuse Patient Records regulations: The Federal rules restrict any use of the information to criminally investigate or prosecute any alcohol or drug abuse patient.[facility] CenterIn the event this information is protected by the Federal Confidentiality of Alcohol and Drug Abuse Patient Records regulations: The Federal rules restrict any use of the information to criminally investigate or prosecute any alcohol or drug abuse patient.[facility] CenterIn the event this information is protected by the Federal Confidentiality of Alcohol and Drug Abuse Patient Records regulations: The Federal rules restrict any use of the information to criminally investigate or prosecute any alcohol or drug abuse patient.[facility] CenterIn the event this information is protected by the Federal Confidentiality of Alcohol and Drug Abuse Patient Records regulations: The Federal rules restrict any use of the information to criminally investigate or prosecute any alcohol or drug abuse patient.[facility] CenterIn the event this information is protected by the Federal Confidentiality of Alcohol and Drug Abuse Patient Records regulations: The Federal rules restrict any use of the information to criminally investigate or prosecute any alcohol or drug abuse patient.[facility] CenterIn the event this information is protected by the Federal Confidentiality of Alcohol and Drug Abuse Patient Records regulations: The Federal rules restrict any use of the information to criminally investigate or prosecute any alcohol or drug abuse patient.[facility] Reason for Visit (unrecogniz ed [...] Comments request for medication Reason Comments [facility] requesting verbal agree to f [facility] Express Teams (unrecognized sec tion and content) City Constable Relationship Specialty Start Date End Date Kameron Caruso MD [address] [place] [address] PCP - General Family Practice 09/21/15 City Constable Relationship Specialty Start Date End Date Kameron Caruso MD [address] [place] [address] PCP - General Family Practice 09/21/15 City Constable Relationship Specialty Start Date End Date Kameron Caruso MD [address] [facility] [place] [address] PCP - General Family Practice 09/21/15 City Constable Relationship Specialty Start Date End Date Kameron Caruso MD [address] [place] [address] PCP - General Family Practice 09/21/15 City Constable Relationship Specialty Start Date End Date Kameron Caruso MD [address] [facility] [place] [address] PCP - General Family Practice 09/21/15 City Constable Relationship Specialty Start Date End Date Kameron Caruso MD [address] [place] [address] PCP - General Family Practice 09/21/15 City Constable Relationship Specialty Start Date End Date Kameron Caruso MD [address] [place] [address] PCP - General Family Medicine 09/21/15 City Constable Relationship Specialty Start Date End Date Kameron Caruso MD [address] [place] [address] PCP - General Family Medicine 09/21/15 City Constable Relationship Specialty Start Date End Date Kameron Caruso MD [address] [place] [address] PCP - General Family Medicine 09/21/15 City Constable Relationship Specialty Start Date End Date Kameron Caruso MD [address] [place] [address] PCP - General Family Medicine 09/21/15 City Constable Relationship Specialty Start Date End Date Kameron Caruso MD [address] [place] [address] PCP - General Family Medicine 09/21/15 City Constable Relationship Specialty Start Date End Date Kameron Caruso MD [address] [place] [address] PCP - General Family Medicine 09/21/15 City Constable Relationship Specialty Start Date End Date Kameron Caruso MD [address] [place] [address] PCP - General Family Medicine 09/21/15 City Constable Relationship Specialty Start Date End Date Kameron Caruso MD [address] [place] [address] PCP - General Family Medicine 09/21/15 City Constable Relationship Specialty Start Date End Date Kameron Caruso MD [address] [place] [address] PCP - General Family Medicine 09/21/15 City Constable Relationship Specialty Start Date End Date Kameron Caruso MD [address] [place] [address] PCP - General Family Medicine 09/21/15 Emma Sotomayor APRN.GAUGE INSPECTOR [address] [place] [address] Inspector Type Family Medicine 04/21/24 Mj Glover APRN.GAUGE INSPECTOR [address] [place] [address] Inspector Type Family Medicine 04/30/24 City Constable Relationship Specialty Start Date End Date Kameron Caruso MD [address] [place] [address] PCP - General Family Medicine 09/21/15 Emma Sotomayor APRN.GAUGE INSPECTOR [address] [place] [address] Inspector Type Family Medicine 04/21/24 Mj Glover APRN.GAUGE INSPECTOR [address] [place] [address] Inspector Type Family Medicine 04/30/24 City Constable Relationship Specialty Start Date End Date Kameron Caruso MD [address] [place] [address] PCP - General Family Medicine 09/21/15 Emma Sotomayor APRN.GAUGE INSPECTOR [address] [place] [address] Inspector Type Family Medicine 04/21/24 Mj Glover APRN.GAUGE INSPECTOR [address] [place] [address] Inspector Type Family Medicine 04/30/24 City Constable Relationship Specialty Start Date End Date Kameron Caruso MD [address] [place] [address] PCP - General Family Medicine 09/21/15 Emma Sotomayor APRN.GAUGE INSPECTOR [address] [place] [address] Inspector Type Family Medicine 04/21/24 Mj Glover APRN.GAUGE INSPECTOR [address] [place] [address] [facility] City Constable Relationship Specialty Start Date End Date Kameron Caruso MD [address] [place] [address] PCP - General Family Medicine 09/21/15 Emma Sotomayor APRN.GAUGE INSPECTOR [address] [place] [address] Inspector Type Family Medicine 04/21/24 Mj Glover APRN.GAUGE INSPECTOR [address] [place] [address] [facility] City Constable Relationship Specialty Start Date End Date Kameron Caruso MD [address] [place] [address] PCP - General Family Medicine 09/21/15 Emma Sotomayor APRN.GAUGE INSPECTOR [address] [place] [address] [facility]/21/24 Mj Glover FAMILY MEMBER CARETAKER.GAUGE INSPECTOR [address] [place] [address] [facility] 04/30/24 City Constable Relationship Specialty Start Date End Date Kameron Caruso MD [address] [place] [address] PCP - General Family Medicine 09/21/15 Emma Sotomayor, FAMILY MEMBER CARETAKER.GAUGE INSPECTOR [address] [place] [address] [facility] 04/21/24 Mj Glover FAMILY MEMBER CARETAKER.GAUGE INSPECTOR [address] [place] [address] [facility] 04/30/24 Team Status: Active Member Role Status Dates Dr. Kameron Caruso MD Primary Care Provider Active Team Status: Inactive Member Role Status Dates Dr. Kameron Caruso MD Primary Care Provider Active Start: August 02, 2024 End: August 02, 2024 Dr. Pieter Morgan MD Emergency Provider Active Start: August 02, 2024 End: August 02, 2024 City Constable Relationship Specialty Start Date End Date Kameron Caruso MD [address] [place] [address] PCP - General Family Medicine 08/03/24 City Constable Relationship Specialty Start Date End Date Kameron Caruso MD [address] [place] [address] PCP - General Family Medicine 09/21/15 Emma Sotomayor FAMILY MEMBER CARETAKER.GAUGE INSPECTOR [address] [place] [address] Inspector Type Family Medicine 04/21/24 Mj Glover APRN.GAUGE INSPECTOR [address] [place], [place] [address] Inspector Type Family Medicine 04/30/24 Team Status: Inactive Member [...] 2024 End: September 11, 2024 Bret Snyder CUTTER OPERATOR BRICK, CUTTER OPERATOR BRICK-C Attending Provider Active Start: September 11, 2024 [...] Provider Active Start: October 08, 2024 Safia AVRGAS MD Attending Provider Active Start: October 08, 2024 Team Status: Inactive Member Role/Relationship Status Dates Dr. Kameron Caruso MD Primary Care Provider Active Start: October 09, 2024 End: October 09, 2024 Bret Snyder NP, CUTTER OPERATOR BRICK-C Attending Provider Active Start: October 09, 2024 [...] End: October 30, 2024 Bret Snyder NP CUTTER OPERATOR BRICK-C Attending Provider Active Start: October 30, 2024 [...] End: October 22, 2024 Bret Snyder NP CUTTER OPERATOR BRICK-C Attending Provider Active Start: October 22, 2024 [...] 2024 End: October 30, 2024 Bret Snyder CUTTER OPERATOR BRICK CUTTER OPERATOR BRICK-C Attending Provider Active Start: October 30, 2024 [...] End: October 30, 2024 Bret Snyder NP, CUTTER OPERATOR BRICK-C Attending Provider Active Start: October 30, 2024 [...] 2024 End: September 11, 2024 Bret Snyder CUTTER OPERATOR BRICK, CUTTER OPERATOR BRICK-C Attending Provider Active Start: September 11, 2024 [...] 2024 End: October 09, 2024 Bret Snyder CUTTER OPERATOR BRICK, CUTTER OPERATOR BRICK-C Attending Provider Active Start: October 09, 2024 [...] End: October 22, 2024 Bret Snyder NP, CUTTER OPERATOR BRICK-C Attending Provider Active Start: October 22, 2024 [...] 2024 End: November 20, 2024 Bret Snyder CUTTER OPERATOR BRICK, CUTTER OPERATOR BRICK-C Attending Provider Active Start: November 20, 2024 [...] 28, 2024 End: November 28, 2024 Bret Snyder CUTTER OPERATOR BRICK, CUTTER OPERATOR BRICK-C Attending Provider Active Start: November 28, 2024 [...] 1947 (Given - Provider: Shaila Eng RN) 08 (Given - Provider: Eneida Cespedes RN)2041 (Given - Provider: Sahnna Catalan RN) 08 (Given - Provider: Robson [...] Shaila Eng RN)1217 (Given - Provider: Eneida Cesepdes RN)1757 (Given - Provider: Eneida Cespedes RN) [...] Cespedes RN) 0901 (Given - Provider: Robson Steel, ZOE) Lisinopril (PRINIVIL) tablet 10 mg 10 mg, PEG Tube, DAILY, First dose (after last modification) on 08/10/24 at 0900, Until Discontinued 09 (Given - Provider: Shanna Palmer RN) 0849 (Given - Provider: Eneida Cespedes RN) 0807 (Given - Provider: Robson Steel, RN) Melatonin tablet 3 mg 3 mg, PEG Tube, DAILY AT BEDTIME, First dose (after last modification) on Mon08/09/24 at 2100, Until Discontinued 194 (Given - Provider: Shaila Eng RN) 2041 (Given - Provider: Shanna Catalan, ZOE) Metoprolol (LOPRESSOR) tablet 50 mg 50 mg, PEG Tube, EVERY 12 HOURS, First dose (after last modification) on Mon08/09/24 at 2100, Until Discontinued 0904 (Given - Provider: Shanna Palmer RN)1946 (Given - Provider: Shaila Eng RN) 08 (Given - Provider: Eneida Cespedes RN)2040 (Given - Provider: Shanna Catalan RN) 08 (Given - Provider: Robson Steel RN) Polyethylene glycol (MIRALAX) packet 17 g(Linked Group 2) 17 g, PEG Tube, EVERY 12 HOURS, First dose (after last modification) on Mon08/09/24 at 2100, Until Discontinued 09 (Not Given - Provider: Shanna Palmer [...] Shaila Eng RN)0852 (Stopped - Provider: Eneida New Era, RN) Glucerna 1.5 Ruiz LIQD PEG Tube, [...] glucose is greater than 200mg/dl, then notify rn house supervisor. And BLOOD GLUCOSE (POC DEVICE) (CANCELED) Routine, [...] 50% needed, contact pharmacy or obtain from [facility] My [facility] cart ++ And glucose (GLUTOSE) 40 % [...] at 1301, Until Specified, Who to Notify: Boiler Repair Supervisor, For all Blood Glucose LESS THAN 80 mg/dl, notify Boiler Repair Supervisor after treatment per Hypoglycemia in Non- Adults Clinical Practice Guideline Group 2: Polyethylene glycol (MIRALAX) packet 17 gJump to med 17 g, PEG Tube, EVERY 12 HOURS, First dose (after last modification) on Mon08/09/24 at 2100, Until Discontinued Group 3: Senna (SENOKOT) tablet 17.2 mgJump to med 17.2 mg, PEG Tube, EVERY 12 HOURS, First dose (after last modification) on 08/09/24 at 2100, Until Discontinued, Hold if BM [...] BE BASED ON THE PRIMARY CLINICAL RECORDS. [facility]. provides no warranty or guarantee of the accuracy or completeness of information in this document.
[2025-01-07 07:11] LABS: Hematocrit 36.6 % (37-47); Hemoglobin 11.9 g/dL (12.0-15.0); Immature Granulocytes Count 0.020 X10^3/uL (0.0-0.0); Mean Corp Hgb Conc 32.5 g/dL (32-36); Mean Corpuscular Volume 90.6 fL (81-99); Mean Platelet Vol. 11.4 fl (6.2-12.0); NRBC Flagged by Analyzer 0 % (0-5); Platelet Count 263 K/mm3 (150-450); RBC Distribution Width CV 14.6 % (11.6-14.6); RBC Distribution Width SD 48.5 fl (35.1-43.9); Red Blood Count 4.04 M/mm3 (4.2-5.4); White Blood Count 8.0 K/mm3 (4.4-11.0)
[2025-01-07 07:28] LABS: Anion Gap 12 (5-15); BUN 11 mg/dL (4-19); BUN/Creat Ratio 15.4 RATIO (10-20); Calcium,Total 8.5 mg/dL (7.6-11.0); Carbon Dioxide 23.2 mmol/L (21.0-32.0); Chloride 104 mmol/L (98-108); Glucose 139 mg/dL (70-99); Potassium 3.5 mmol/L (3.3-5.1)
== END ==
LOC: OLS.WHLTCC 04:00
PROVIDERS: PCP Family Medicine; Referring Provider Internal Medicine; Visit Provider Internal Medicine
DX: E11.9 Type 2 diabetes mellitus without complications (principal); I10 Essential (primary) hypertension; I69.354 Hemiplegia and hemiparesis following cerebral infarction affecting left non-dominant side; I69.391 Dysphagia following cerebral infarction
CPT/HCPCS: 36415; 80048; 85025

== ENCOUNTER → 2025-01-14 04:00 | Outpatient (REF) | payer MEDICARE, SELFPAY ==
--- OUTSIDE RECORDS SUMMARY | 2025-01-14 04:55 | XMS RPT_ITS | CCD ---
Author Organization [facility] Care Team Providers Care Coremaking Machine Setter Name Role Phone KETTY DOWNS Attending Unavailable [...] Kameron Caruso MD Primary Care Provider Светлана HIGH SCHOOL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 COACH.Emma TUCKER Unavailable Saurav HIGH SCHOOL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 COACH.Mj TUCKER Unavailable JUVENTINO ROGERS Attending Unavailable JUVENTINO ROGERS Admitting Unavailable CATA ALFRED Attending Unavailable CATA ALFRED Admitting Unavailable Dr. Kameron Caruso MD Primary Care Provider [phone] Dr. Pieter Morgan MD Emergency Provider Kameron Caruso MD Primary Care Provider Светлана HIGH SCHOOL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 COACH.Emma TUCKER Unavailable Unavail able KAMERON CARUSO Referring [...] Provider UnavailDr. Kameron Marquez MD Referring Provider [phone] Makayla LAWSON, Dr. Barker Attending Provider DR KAMERON CARUSO MD Primary Care Unavailab shital HA DO, SILVINO Admitting Unavailable DAE PALMER, SILVINO Attending Unavailable BRYON LAWSON, DR REECE Consulting Unavailab shital HUTTON DO, NANDO Consulting Unavailable HEATON HIGH SCHOOL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 COACH-VP BIOLOGY, AMI Hwang Consulting Unavaila ari GIBSON PhD, MATTHEW Zamudio Consulting Unavailable CHRISTOS VOSS Attending Unavailable CONSULT, GASTROENTEROLOGY Consulting PIETER Wolf Referring Unavailable PREMA RAMOS Admitting Unavailable LEO, KAMERON Beebe Primary Care Unavailable RICHARD MEJIA Referring Unavailable LUCINDA PEACOCK S Attending Unavailable LUCINDA PEACOCK S Admitting Unavailable Jessenia LAWSON, Dr. Baig Attending Provider Claudio ICE CREAM VAN VENDOR-C, Bret Attending Provider Safia Ruelas MD Referring Provider UnavailDr. Kameron Marquez MD Primary Care Provider Safia Ruelas MD Attending Provider UnavailDr. Safia Ulloa MD Attending Provider Claudio ICE CREAM VAN VENDOR-C, Bret Attending Provider Safia Ruelas MD Referring Provider UnavailDr. Kameron Marquez MD Referring Provider Dr. Mj Benavides MD Attending Provider Oleghe OLS, Efewongbe Attending Unavailabl [...] e Oleghe OLS, Efewongbe Referring Unavailabl e Oleghe OLS, Efewongbe Attending Unavailabl e Elderbrock, Kameron Primary Care Unavailable Oleghe OLS, Efewongbe Attending Unavailabl e Elderbrock, Kameron Primary Care Unavailable Elderbrock, Kameron Primary Care Unavailable Oleghe OLS, Efewongbe Attending Unavailabl e Pieter Morgan Attending Unavailable Elderbrock, Kameron Primary [...] Care Unavailable Elderbrock, Kameron Primary Care Unavailable Elderlinda, Kameron Referring Unavailable Mj Benavides Attending Unavailable Elderbrock, Kameron Primary Care Unavailable Bret Snyder Attending Unavailable Elderfariback, Kameron Primary Care Unavailable Bret Snyder Attending Unavailable Oleghe OLS, Efewongbe Attending Unavailabl e Elderbrock, Kameron Primary Care Unavailable Oleghe OLS, Efewongbe Referring Unavailabl e Elderbrock, Kameron Primary Care Unavailable Oleghe OLS, Efewongbe Attending Unavailabl e Elderbrock, Kameron Primary Care Unavailable Oleghe, Efewongbe Attending Unavailable Oleghe OLS, Efewongbe Attending Unavailabl e Elderbrock, Kameron Primary Care Unavailable Elderbrock, Kameron Primary Care Unavailable Tickton, Bret Attending Unavailable Elderbrock, Kameron Primary Care Unavailable Tickton, Bret Attending Unavailable Elderbrock, Kameron Primary Care Unavailable Oleghe, Efewongbe Attending Unavailable Tickton, Bret Attending Unavailable Elderbrock, Kameron Primary Care Unavailable Tickton, Bret Attending Unavailable Elderbrock, Kameron Primary Care [...] reactions to drug 6 Other (See Comments) [place], [place] (2 sources) Other Propensity to adverse reactions 6 Shortness Of Breath [place], [place] (20 sources) Benzocaine; Translations: [BENZOCAINE] Drug Allergy 6 Rash [facility] Work Phone: (20 sources) Cocaine; Translations: [COCAINE] Drug Allergy 9 Inverted T waves [facility] Work Phone: (20 sources) Sulfonamides (Antibiotic); Translations: [SULFA (SULFONAMIDE ANTIBIOTICS)] Propensity to adverse reactions 6 Intolerance [facility] Work Phone: (20 sources) Perfumes; Translations: [PERFUMES] Propensity to adverse reactions 6 Shortness of Breath [facility] Work Phone: (9 sources) Sulfonamides (Antibiotic) Allergy to substance 5 Unknown [facility] (11 sources) perfume; Translations: [perfume] Allergy to substance 5 Shortness of breath [facility] (1 source) Cocaine; Translations: [cocaine nasal] Drug Allergy [facility] (1 source) Codeine; Translations: [codeine] Drug Allergy Pharyngeal swelling (finding) [facility] (1 source) Sulfonamide; Translations: [sulfa drugs] Drug allergy [facility] (1 source) Benzocaine Drug Allergy 5 [facility] (1 source) Cocaine Drug Allergy 5 [facility] (1 source) Sulfonamides (Antibiotic) Drug allergy (disorder) 5 [facility] Medications Current Medications Medication Drug [...] days. donepezil hydrochloride 5 mg oral tablet (9 sources) Start: Start: 09-05-2024 Aricept 5 mg [...] kidney disease, unspecified CKD stage, 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) , Type 2 diabetes [...] 50 mg oral tablet (20 sources) beta-Adrenergic Shae Start: 10-03-19 End: 10-03-19 Start: 10-02-2024 End: [...] Sig (Original) amoxicillin 500 mg oral capsule (9 sources) Penicillin-class Antibacterial Start: 08-02-2024 End: 10-02-2024 [...] needed doxycycline hyclate 100 mg oral capsule (13 sources) Tetracycline-class Drug Start: 2024 End: 2024 [...] by christ once daily. Take 1 tablet once daily [...] kidney disease, unspecified CKD stage, 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) Take 1 tablet by [...] chloride 5 mg extended release oral tablet (20 sources) Cholinergic Muscarinic Antagonist Start: 05-31-2024 End: [...] capsules by m outh once daily sennosides, half-way 8.6 mg oral tablet (2 sources) Start: 08-09-2024 End: 08-15-2024 Start: 08-04-2024 End: 08-09-2024 triamcinolone acetonide 0.85251 mg/mg topical ointment (3 sources) Corticosteroid Start: [...] is greater than 200mg/dl, then notify warehouse shipping clerk. [Order 2 End] [Order 3 Start] Name: [...] 50% needed, contact pharmacy or obtain from [facility] cart ++ [Order 5 End] [Order [...] at 1301, Until Specified, Who to Notify: Covering Machine Operator, For all Blood Glucose LESS THAN 80 mg/dl, notify Covering Machine Operator after treatment per Hypoglycemia in Non- Adults [...] Episodic Coronary atherosclerosis and other heart disease (11 sources) Coronary arteriosclerosis; Translations: [Atherosclerotic heart disease of [place] coronary artery without angina pectoris] Onset: 5 [...] unspecified site] Onset: 5 Chronic Other aftercare (9 sources) 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; Translations: [awning installer (current) use of anticoagulants] 08-02-2024 Episodic Other aftercare (1 source) awning installer (current) use of aspirin; Translations: [awning installer (current) use of aspirin] Onset: 5 Episodic Other aftercare (1 source) awning installer (current) use of anticoagulants; Translations: [prison (current) use of anticoagulants] Onset: Episodic Other aftercare (1 source) prison (current) use of oral hypoglycemic drugs; Translations: [awning installer (current) use of oral hypoglycemic drugs] Onset: Episodic Other circulatory disease (1 source) Hypotension, unspecified; Translations: [Hypotension, unspecified] Onset: Episodic Other connective tissue disease (1 source) Pain in left arm; Translations: [Pain in left arm] Onset: 5 Episodic Other diseases of bladder and urethra (1 source) Overactive bladder; Translations: [Overactive bladder] Onset: Chronic Other diseases of kidney and ureters (11 sources) Kidney disease; Translations: [Disorder of kidney and ureter, unspecified] Onset: 5 07-03-2024 Episodic Other diseases of kidney and ureters (9 sources) Chronic renal insufficiency; Translations: [Disorder of kidney and ureter, unspecified] 08-02-2024 Episodic Other eye disorders (9 sources) H/O: Bilateral cataract extraction; Translations: [Cataract extraction status, right eye] 07-03-2024 Episodic Other gastrointestinal disorders (1 source) Gastrostomy status; 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 Other gastrointestinal disorders (1 source) Dysphagia; Translations: [Dysphagia, unspecified] Onset: 5 Episodic Other gastrointestinal disorders (1 source) Dysphagia, unspecified; Translations: [Dysphagia, unspecified] Onset: 5 Episodic Other gastrointestinal disorders (2 sources) Diarrhea, unspecified; Translations: [Diarrhea, unspecified] Onset: 04-03-202 5 Episodic Other infections; including parasitic (2 [...] cutis] Onset: Episodic Other upper respiratory infections (9 sources) Upper respiratory infection; Translations: [Acute upper [...] lymphocyte countOrd ered By: Safia Ruelas on 01-07-2025 Lymphocytes Auto (Unsp spec) [#/Vol] 2.90 10*3/uL 0.83-4.51 [facility] Anion gap in Serum or Plasma Ordered By: Safia Ruelas on 01-07-2025 Anion gap [Moles/Vol] 12 mmol/L 5-15 [facility] Automated lymphocyte count a s percentage of total leukocytesOrdered By: Safia Ruelas on 01-07-2025 Lymphocytes/100 WBC Auto (Unsp spec) 36.3 % 19-41 [facility] BUN/creatinine ratioOrdered By: Safia Ruelas on 01-07-2025 Urea nitrogen/Creatinine [Mass ratio] 15.4 mg/mg 10-20 [facility] Basophil percentageOrdered B y: Safia Ruelas on 01-07-2025 Basophils/100 WBC (Bld) 0.6 % 0-1 [facility] Carbon dioxide, total [Moles /volume] in Central venous bloodOrdered By: Safia Ruelas on 01-07-2025 CO2 [Moles/Vol] 23.2 mmol/L 21.0-32.0 [facility] Chloride assayOrdered By: Balbir Ruelas on 01-07-2025 Chloride [Moles/Vol] 104 mmol/L 98-108 [facility] Eosinophil percentageOrdered By: Balbirjean mariedesireeskye Griderbonimelanie on 01-07-2025 Eosinophils/100 WBC (Bld) 2.3 % 0-5 [facility] Erythrocyte distribution wid th ratioOrdered By: Safia Griderbonimelanie on 01-07-2025 Erythrocyte distribution width (RBC) [Ratio] 14.6 % 11.6-14.6 [facility] Erythrocyte distribution wid th standard deviationOrdered By: Balbirjean mariedesireeskye Griderbonimelanie on 01-07-2025 Erythrocyte distribution width (RBC) [Ratio] 48.5 fl High 35.1-43.9 [facility] Glomerular filtration rate ( GFR) estimation/1.73 sq m using serum, plasma, or whole bOrdered By: Safia Ruelas on 01-07-2025 GFR/1.73 sq M.predicted among non-blacks MDRD (S/P/Bld) [Vol rate/Area] 86 mL/min/{1.73_m2} >60 [facility] Hematocrit Auto (Bld) [Volum e fraction]Ordered By: sherry Ruelas on 01-07-2025 Hematocrit (Bld) [Volume fraction] 36.6 % Low 37-47 [facility] Hemoglobin measurementOrdere d By: Safia Ruelas on 01-07-2025 Hemoglobin (Bld) [Mass/Vol] 11.9 g/dL Low 12.0-15.0 [facility] Immature granulocytes/100 WB C Auto (Bld)Ordered By: Safia Ruelas on 01-07-2025 Immature granulocytes/100 WBC (Bld) 0.300 % 0.0-0.9 [facility] MCV (mean corpuscular volume ) determinationOrdered By: Safia Ruelas on 01-07-2025 MCV (RBC) [Entitic vol] 90.6 fL 81-99 [facility] Mean corpuscular hemoglobin (MCH) determinationOrdered By: Safia Ruelas on 01-07-2025 MCH (RBC) [Entitic mass] 29.5 pg 27.0-32.0 [facility] Monocyte percentageOrdered B y: Safia Ruelas on 01-07-2025 Monocytes/100 WBC (Bld) 7.9 % 0-10 [facility] Neutrophil percentageOrdered By: Safia Ruelas on 01-07-2025 Neutrophils/100 WBC (Bld) 52.6 % 47-70 [facility] Platelet countOrdered By: Balbir Reulas on 01-07-2025 Platelets (Bld) [#/Vol] 263 10*3/uL 150-450 [facility] Potassium measurement (mass/ volume)Ordered By: Safia Ruelas on 01-07-2025 Potassium (Unsp spec) [Mass/Vol] 3.5 mmol/L 3.3-5.1 [facility] RBC Auto (Bld) [#/Vol]Ordere d By: Safia Ruelas on 01-07-2025 RBC (Bld) [#/Vol] 4.04 10*6/uL Low 4.2-5.4 [facility] Serum creatinine measurement (mass/volume)Ordered By: Safia Ruelas on 01-07-2025 Creatinine [Mass/Vol] 0.71 mg/dL 0.70-1.20 [facility] Serum glucose measurement (m ass/volume)Ordered By: Safia Ruelas on 01-07-2025 Glucose [Mass/Vol] 139 mg/dL High 70-99 [facility] Serum or plasma calcium dayna urement (mass/volume)Ordered By: Safia Ruelas on 01-07-2025 Calcium [Mass/Vol] 8.5 mg/dL 7.6-11.0 [facility] Serum or plasma urea nitroge n measurement (mass/volume)Ordered By: Safia Ruelas on 01-07-2025 Urea nitrogen [Mass/Vol] 11 mg/dL 4-19 [facility] Sodium levelOrdered By: Leonides Ruelas on 01-07-2025 Sodium [Moles/Vol] 139 mmol/L 133-145 [facility] White blood cell (WBC) count Ordered By: Safia Ruelas on 01-07-2025 WBC (Bld) [#/Vol] 8.0 10*3/uL 4.4-11.0 [facility] Absolute lymphocyte countOrd ered By: Leonidesjosé antonio Ruelas on 12-31-2024 Lymphocytes Auto (Unsp spec) [#/Vol] 2.27 10*3/uL 0.83-4.51 [facility] Anion gap in Serum or Plasma Ordered By: Safia Ruelas on 12-31-2024 Anion gap [Moles/Vol] 14 mmol/L 5-15 [facility] Automated lymphocyte count a s percentage of total leukocytesOrdered By: Safia Ruelas on 12-31-2024 Lymphocytes/100 WBC Auto (Unsp spec) 32.9 % 19- [facility] BUN/creatinine ratioOrdered By: Safia Griderbonimelanie on 12-31-2024 Urea nitrogen/Creatinine [Mass ratio] 15.0 mg/mg 10-20 [facility] Basophil percentageOrdered B y: Safia Griderbonimelanie on 12-31-2024 Basophils/100 WBC (Bld) 0.6 % 0-1 [facility] Carbon dioxide, total [Moles /volume] in Central venous bloodOrdered By: Safia Griderbonimelanie on 12-31-2024 CO2 [Moles/Vol] 22.1 mmol/L 21.0-32.0 [facility] Chloride assayOrdered By: Balbir Ruelas on 12-31-2024 Chloride [Moles/Vol] 103 mmol/L 98-108 [facility] Eosinophil percentageOrdered By: Safia Griderbonimelanie on 12-31-2024 Eosinophils/100 WBC (Bld) 3.2 % 0-5 [facility] Erythrocyte distribution wid th ratioOrdered By: Leonidesjosé antonio Cheobonie on 12-31-2024 Erythrocyte distribution width (RBC) [Ratio] 14.6 % 11.6-14.6 [facility] Erythrocyte distribution wid th standard deviationOrdered By: Safia Griderbonie on 12-31-2024 Erythrocyte distribution width (RBC) [Ratio] 48.9 fl High 35.1-43.9 [facility] Glomerular filtration rate ( GFR) estimation/1.73 sq m using serum, plasma, or whole bOrdered By: Safia Ruelas on 12-31-2024 GFR/1.73 sq M.predicted among non-blacks MDRD (S/P/Bld) [Vol rate/Area] 88 mL/min/{1.73_m2} >60 [facility] Hematocrit Auto (Bld) [Volum e fraction]Ordered By: Safia Ruelas on 12-31-2024 Hematocrit (Bld) [Volume fraction] 36.8 % Low 37-47 [facility] Hemoglobin A1c percentageOrd ered By: Safia Griderbonimelanie on 12-31-2024 HbA1c (Bld) [Mass fraction] 6.5 % High <5.7 [facility] Hemoglobin measurementOrdere d By: Leonidesdesireeskye Griderbonimelanie on 12-31-2024 Hemoglobin (Bld) [Mass/Vol] 11.8 g/dL Low 12.0-15.0 [facility] Immature granulocytes/100 WB C Auto (Bld)Ordered By: Saifa Griderbonimelanie on 12-31-2024 Immature granulocytes/100 WBC (Bld) 0.300 % 0.0-0.9 [facility] MCV (mean corpuscular volume ) determinationOrdered By: Safia Ruelas on 12-31-2024 MCV (RBC) [Entitic vol] 91.3 fL 81-99 [facility] Mean corpuscular hemoglobin (MCH) determinationOrdered By: Safia Griderbonimelanie on 12-31-2024 MCH (RBC) [Entitic mass] 29.3 pg 27.0-32.0 [facility] Monocyte percentageOrdered B y: Leonidesdseireeskye Griderbonimelanie on 12-31-2024 Monocytes/100 WBC (Bld) 9.4 % 0-10 [facility] Neutrophil percentageOrdered By: sherry Griderbonimelanie on 12-31-2024 Neutrophils/100 WBC (Bld) 53.6 % 47-70 [facility] Platelet countOrdered By: Balbir Griderbonimelanie on 12-31-2024 Platelets (Bld) [#/Vol] 232 10*3/uL 150-450 [facility] Potassium measurement (mass/ volume)Ordered By: Safia Ruelas on 12-31-2024 Potassium (Unsp spec) [Mass/Vol] 3.5 mmol/L 3.3-5.1 [facility] RBC Auto (Bld) [#/Vol]Ordere d By: Bandarskye Griderbonimelanie on 12-31-2024 RBC (Bld) [#/Vol] 4.03 10*6/uL Low 4.2-5.4 [facility] Serum creatinine measurement (mass/volume)Ordered By: Safia Ruelas on 12-31-2024 Creatinine [Mass/Vol] 0.70 mg/dL 0.70-1.20 [facility] Serum glucose measurement (m ass/volume)Ordered By: Safia Ruelas on 12-31-2024 Glucose [Mass/Vol] 142 mg/dL High 70-99 [facility] Serum or plasma calcium dayna urement (mass/volume)Ordered By: Safia Ruelas on 12-31-2024 Calcium [Mass/Vol] 8.4 mg/dL 7.6-11.0 [facility] Serum or plasma urea nitroge n measurement (mass/volume)Ordered By: Safia Ruelas on 12-31-2024 Urea nitrogen [Mass/Vol] 10 mg/dL 4-19 [facility] Sodium levelOrdered By: Leonides josé antonio Jessenia on 12-31-2024 Sodium [Moles/Vol] 139 mmol/L 133-145 [facility] White blood cell (WBC) count Ordered By: Safia Ruelas on 12-31-2024 WBC (Bld) [#/Vol] 6.9 10*3/uL 4.4-11.0 [facility] Absolute lymphocyte countOrd ered By: Safia Ruelas on 12-24-2024 Lymphocytes Auto (Unsp spec) [#/Vol] 2.54 10*3/uL 0.83-4.51 [facility] Anion gap in Serum or Plasma Ordered By: Safia Ruelas on 12-24-2024 Anion gap [Moles/Vol] 14 mmol/L 5-15 [facility] Automated lymphocyte count a s percentage of total leukocytesOrdered By: Safia Ruelas on 12-24-2024 Lymphocytes/100 WBC Auto (Unsp spec) 28.0 % 19-41 [facility] BUN/creatinine ratioOrdered By: Safia Ruelas on 12-24-2024 Urea nitrogen/Creatinine [Mass ratio] 18.4 mg/mg 10-20 [facility] Basophil percentageOrdered B y: Safia Ruelas on 12-24-2024 Basophils/100 WBC (Bld) 0.8 % 0-1 [facility] Carbon dioxide, total [Moles /volume] in Central venous bloodOrdered By: sherry Ruelas on 12-24-2024 CO2 [Moles/Vol] 22.1 mmol/L 21.0-32.0 [facility] Chloride assayOrdered By: Balbir Ruelas on 12-24-2024 Chloride [Moles/Vol] 101 mmol/L 98-108 [facility] Eosinophil percentageOrdered By: Safia Ruelas on 12-24-2024 Eosinophils/100 WBC (Bld) 2.6 % 0-5 [facility] Erythrocyte distribution wid th ratioOrdered By: jean mariearbonskye Ruelas on 12-24-2024 Erythrocyte distribution width (RBC) [Ratio] 14.4 % 11.6-14.6 [facility] Erythrocyte distribution wid th standard deviationOrdered By: jean mariearbonskye Ruelas on 12-24-2024 Erythrocyte distribution width (RBC) [Ratio] 48.8 fl High 35.1-43.9 [facility] Glomerular filtration rate ( GFR) estimation/1.73 sq m using serum, plasma, or whole bOrdered By: Safia Ruelas on 12-24-2024 GFR/1.73 sq M.predicted among non-blacks MDRD (S/P/Bld) [Vol rate/Area] 83 mL/min/{1.73_m2} >60 [facility] Hematocrit Auto (Bld) [Volum e fraction]Ordered By: Safia Ruelas on 12-24-2024 Hematocrit (Bld) [Volume fraction] 37.9 % 37-47 [facility] Hemoglobin measurementOrdere d By: Safia Ruelas on 12-24-2024 Hemoglobin (Bld) [Mass/Vol] 12.2 g/dL 12.0-15.0 [facility] Immature granulocytes/100 WB C Auto (Bld)Ordered By: Safia Griderbonimelanie on 12-24-2024 Immature granulocytes/100 WBC (Bld) 0.400 % 0.0-0.9 [facility] MCV (mean corpuscular volume ) determinationOrdered By: Safia Ruelas on 12-24-2024 MCV (RBC) [Entitic vol] 92.2 fL 81-99 [facility] Mean corpuscular hemoglobin (MCH) determinationOrdered By: Safia Ruelas on 12-24-2024 MCH (RBC) [Entitic mass] 29.7 pg 27.0-32.0 [facility] Monocyte percentageOrdered B y: Safia Griderbonimelanie on 12-24-2024 Monocytes/100 WBC (Bld) 8.7 % 0-10 [facility] Neutrophil percentageOrdered By: Safia Griderbonimelanie on 12-24-2024 Neutrophils/100 WBC (Bld) 59.5 % 47-70 [facility] Platelet countOrdered By: Balbir sherry Cheobonimelanie on 12-24-2024 Platelets (Bld) [#/Vol] 256 10*3/uL 150-450 [facility] Potassium measurement (mass/ volume)Ordered By: Safia Ruelas on 12-24-2024 Potassium (Unsp spec) [Mass/Vol] 3.4 mmol/L 3.3-5.1 [facility] RBC Auto (Bld) [#/Vol]Ordere d By: Leonidesdesireeskye Griderbonimelanie on 12-24-2024 RBC (Bld) [#/Vol] 4.11 10*6/uL Low 4.2-5.4 [facility] Serum creatinine measurement (mass/volume)Ordered By: Safia Ruelas on 12-24-2024 Creatinine [Mass/Vol] 0.73 mg/dL 0.70-1.20 [facility] Serum glucose measurement (m ass/volume)Ordered By: Safia Ruelas on 12-24-2024 Glucose [Mass/Vol] 142 mg/dL High 70-99 [facility] Serum or plasma calcium dayna urement (mass/volume)Ordered By: Safia Ruelas on 12-24-2024 Calcium [Mass/Vol] 9.1 mg/dL 7.6-11.0 [facility] Serum or plasma urea nitroge n measurement (mass/volume)Ordered By: Safia Ruelas on 12-24-2024 Urea nitrogen [Mass/Vol] 13 mg/dL 4-19 [facility] Sodium levelOrdered By: Leonides josé antonio Jessenia on 12-24-2024 Sodium [Moles/Vol] 137 mmol/L 133-145 [facility] White blood cell (WBC) count Ordered By: Safia Ruelas on 12-24-2024 WBC (Bld) [#/Vol] 9.1 10*3/uL 4.4-11.0 [facility] Absolute lymphocyte countOrd ered By: Safia Ruelas on 12-17-2024 Lymphocytes Auto (Unsp spec) [#/Vol] 2.94 10*3/uL 0.83-4.51 [facility] Anion gap in Serum or Plasma Ordered By: Safia Ruelas on 12-17-2024 Anion gap [Moles/Vol] 15 mmol/L 5-15 [facility] Automated lymphocyte count a s percentage of total leukocytesOrdered By: Safia Ruelas on 12-17-2024 Lymphocytes/100 WBC Auto (Unsp spec) 30.5 % 19-41 [facility] BUN/creatinine ratioOrdered By: Safia Ruelas on 12-17-2024 Urea nitrogen/Creatinine [Mass ratio] 23.4 mg/mg High 10-20 [facility] Basophil percentageOrdered B y: Leonidesdesireeskye Ruelas on 12-17-2024 Basophils/100 WBC (Bld) 0.7 % 0-1 [facility] Carbon dioxide, total [Moles /volume] in Central venous bloodOrdered By: Safia Ruelas on 12-17-2024 CO2 [Moles/Vol] 22.1 mmol/L 21.0-32.0 [facility] Chloride assayOrdered By: Balbir jean mariejosé antonio Ruelas on 12-17-2024 Chloride [Moles/Vol] 102 mmol/L 98-108 [facility] Eosinophil percentageOrdered By: Safia Ruelas on 12-17-2024 Eosinophils/100 WBC (Bld) 2.3 % 0-5 [facility] Erythrocyte distribution wid th ratioOrdered By: sherry Ruelas on 12-17-2024 Erythrocyte distribution width (RBC) [Ratio] 14.1 % 11.6-14.6 [facility] Erythrocyte distribution wid th standard deviationOrdered By: Safia Ruelas on 12-17-2024 Erythrocyte distribution width (RBC) [Ratio] 47.3 fl High 35.1-43.9 [facility] Glomerular filtration rate ( GFR) estimation/1.73 sq m using serum, plasma, or whole bOrdered By: Safia Ruelas on 12-17-2024 GFR/1.73 sq M.predicted among non-blacks MDRD (S/P/Bld) [Vol rate/Area] 77 mL/min/{1.73_m2} >60 [facility] Hematocrit Auto (Bld) [Volum e fraction]Ordered By: jean mariearbonskye Ruelas on 12-17-2024 Hematocrit (Bld) [Volume fraction] 40.2 % 37-47 [facility] Hemoglobin measurementOrdere d By: Safia Ruelas on 12-17-2024 Hemoglobin (Bld) [Mass/Vol] 12.7 g/dL 12.0-15.0 [facility] Immature granulocytes/100 WB C Auto (Bld)Ordered By: Safia Ruelas on 12-17-2024 Immature granulocytes/100 WBC (Bld) 0.400 % 0.0-0.9 [facility] MCV (mean corpuscular volume ) determinationOrdered By: Safia Ruelas on 12-17-2024 MCV (RBC) [Entitic vol] 92.2 fL 81-99 [facility] Mean corpuscular hemoglobin (MCH) determinationOrdered By: Safia Ruelas on 12-17-2024 MCH (RBC) [Entitic mass] 29.1 pg 27.0-32.0 [facility] Monocyte percentageOrdered B y: Safia Cheoquyen on 12-17-2024 Monocytes/100 WBC (Bld) 8.6 % 0-10 [facility] Neutrophil percentageOrdered By: Safia Ruelas on 12-17-2024 Neutrophils/100 WBC (Bld) 57.5 % 47-70 [facility] Platelet countOrdered By: Balbir sherry Cheoquyen on 12-17-2024 Platelets (Bld) [#/Vol] 287 10*3/uL 150-450 [facility] Potassium measurement (mass/ volume)Ordered By: Balbirjean mariedesireeskye Griderbonimelanie on 12-17-2024 Potassium (Unsp spec) [Mass/Vol] 3.5 mmol/L 3.3-5.1 [facility] RBC Auto (Bld) [#/Vol]Ordere d By: Safia Cheoquyen on 12-17-2024 RBC (Bld) [#/Vol] 4.36 10*6/uL 4.2-5.4 [facility] Serum creatinine measurement (mass/volume)Ordered By: Balbirjean mariedesireeskye Griderbonimelanie on 12-17-2024 Creatinine [Mass/Vol] 0.78 mg/dL 0.70-1.20 [facility] Serum glucose measurement (m ass/volume)Ordered By: Balbirjean mariedesireeskye Griderbonimelanie on 12-17-2024 Glucose [Mass/Vol] 125 mg/dL High 70-99 [facility] Serum or plasma calcium dayna urement (mass/volume)Ordered By: Balbirjean mariedesireeskye Griderbonimelanie on 12-17-2024 Calcium [Mass/Vol] 9.2 mg/dL 7.6-11.0 [facility] Serum or plasma urea nitroge n measurement (mass/volume)Ordered By: Safia Griderbonimelanie on 12-17-2024 Urea nitrogen [Mass/Vol] 18 mg/dL 4-19 [facility] Sodium levelOrdered By: Balbirjean marie josé antonio Cheobonimelanie on 12-17-2024 Sodium [Moles/Vol] 139 mmol/L 133-145 [facility] White blood cell (WBC) count Ordered By: Balbirjean mariedesireeskye Griderbonimelanie on 12-17-2024 WBC (Bld) [#/Vol] 9.6 10*3/uL 4.4-11.0 [facility] Absolute lymphocyte countOrd ered By: Safia Ruelas on 12-10-2024 Lymphocytes Auto (Unsp spec) [#/Vol] 2.59 10*3/uL 0.83-4.51 [facility] Anion gap in Serum or Plasma Ordered By: Safia Griderbonimelanie on 12-10-2024 Anion gap [Moles/Vol] 15 mmol/L 5-15 [facility] Automated lymphocyte count a s percentage of total leukocytesOrdered By: Safia Griderbonimelanie on 12-10-2024 Lymphocytes/100 WBC Auto (Unsp spec) 30.2 % 19-41 [facility] BUN/creatinine ratioOrdered By: Safia Griderbonimelanie on 12-10-2024 Urea nitrogen/Creatinine [Mass ratio] 25.6 mg/mg High 10-20 [facility] Basophil percentageOrdered B y: Safia Griderbonimelanie on 12-10-2024 Basophils/100 WBC (Bld) 0.9 % 0-1 [facility] Carbon dioxide, total [Moles /volume] in Central venous bloodOrdered By: Safia Griderbonimelanie on 12-10-2024 CO2 [Moles/Vol] 21.7 mmol/L 21.0-32.0 [facility] Chloride assayOrdered By: Balbir jean mariejosé antonio Griderbonimelanie on 12-10-2024 Chloride [Moles/Vol] 101 mmol/L 98-108 [facility] Eosinophil percentageOrdered By: Safia Griderbonimelanie on 12-10-2024 Eosinophils/100 WBC (Bld) 1.9 % 0-5 [facility] Erythrocyte distribution wid th ratioOrdered By: jean mariejosé antonio Cheobonimelanie on 12-10-2024 Erythrocyte distribution width (RBC) [Ratio] 13.7 % 11.6-14.6 [facility] Erythrocyte distribution wid th standard deviationOrdered By: Safia Griderbonimelanie on 12-10-2024 Erythrocyte distribution width (RBC) [Ratio] 46.8 fl High 35.1-43.9 [facility] Glomerular filtration rate ( GFR) estimation/1.73 sq m using serum, plasma, or whole bOrdered By: Safia Ruelas on 12-10-2024 GFR/1.73 sq M.predicted among non-blacks MDRD (S/P/Bld) [Vol rate/Area] 72 mL/min/{1.73_m2} >60 [facility] Hematocrit Auto (Bld) [Volum e fraction]Ordered By: Safia Ruelas on 12-10-2024 Hematocrit (Bld) [Volume fraction] 38.8 % 37-47 [facility] Hemoglobin measurementOrdere d By: Safia Ruelas on 12-10-2024 Hemoglobin (Bld) [Mass/Vol] 12.3 g/dL 12.0-15.0 [facility] Immature granulocytes/100 WB C Auto (Bld)Ordered By: Safia Ruelas on 12-10-2024 Immature granulocytes/100 WBC (Bld) 0.500 % 0.0-0.9 [facility] MCV (mean corpuscular volume ) determinationOrdered By: Safia Ruelas on 12-10-2024 MCV (RBC) [Entitic vol] 93.3 fL 81-99 [facility] Mean corpuscular hemoglobin (MCH) determinationOrdered By: jean mariearbonskye Ruelas on 12-10-2024 MCH (RBC) [Entitic mass] 29.6 pg 27.0-32.0 [facility] Monocyte percentageOrdered B y: Safia Ruelas on 12-10-2024 Monocytes/100 WBC (Bld) 8.2 % 0-10 [facility] Neutrophil percentageOrdered By: jean mariearbonskye Ruelas on 12-10-2024 Neutrophils/100 WBC (Bld) 58.3 % 47-70 [facility] Platelet countOrdered By: Balbir jean mariejosé antonio Ruelas on 12-10-2024 Platelets (Bld) [#/Vol] 247 10*3/uL 150-450 [facility] Potassium measurement (mass/ volume)Ordered By: Safia Ruelas on 12-10-2024 Potassium (Unsp spec) [Mass/Vol] 3.8 mmol/L 3.3-5.1 [facility] RBC Auto (Bld) [#/Vol]Ordere d By: Leonidesdesireeskye Griderbonimelanie on 12-10-2024 RBC (Bld) [#/Vol] 4.16 10*6/uL Low 4.2-5.4 [facility] Serum creatinine measurement (mass/volume)Ordered By: Safia Griderbonimelanie on 12-10-2024 Creatinine [Mass/Vol] 0.82 mg/dL 0.70-1.20 [facility] Serum glucose measurement (m ass/volume)Ordered By: Safia Ruelas on 12-10-2024 Glucose [Mass/Vol] 149 mg/dL High 70-99 [facility] Serum or plasma calcium dayna urement (mass/volume)Ordered By: Safia Ruelas on 12-10-2024 Calcium [Mass/Vol] 9.1 mg/dL 7.6-11.0 [facility] Serum or plasma urea nitroge n measurement (mass/volume)Ordered By: Safia Ruelas on 12-10-2024 Urea nitrogen [Mass/Vol] 21 mg/dL High 4-19 [facility] Sodium levelOrdered By: Leonides josé antonio Jessenia on 12-10-2024 Sodium [Moles/Vol] 137 mmol/L 133-145 [facility] White blood cell (WBC) count Ordered By: Safia Ruelas on 12-10-2024 WBC (Bld) [#/Vol] 8.6 10*3/uL 4.4-11.0 [facility] Absolute lymphocyte countOrd ered By: Safia Ruelas on 12-03-2024 Lymphocytes Auto (Unsp spec) [#/Vol] 2.81 10*3/uL 0.83-4.51 [facility] Anion gap in Serum or Plasma Ordered By: Safia Griderbonimelanie on 12-03-2024 Anion gap [Moles/Vol] 14 mmol/L 5-15 [facility] Automated lymphocyte count a s percentage of total leukocytesOrdered By: Safia Ruelas on 12-03-2024 Lymphocytes/100 WBC Auto (Unsp spec) 28.3 % 19-41 [facility] BUN/creatinine ratioOrdered By: Safia Ruelas on 12-03-2024 Urea nitrogen/Creatinine [Mass ratio] 28.4 mg/mg High 10-20 [facility] Basophil percentageOrdered B y: Safia Ruelas on 12-03-2024 Basophils/100 WBC (Bld) 0.6 % 0-1 [facility] Carbon dioxide, total [Moles /volume] in Central venous bloodOrdered By: Safia Ruelas on 12-03-2024 CO2 [Moles/Vol] 23.3 mmol/L 21.0-32.0 [facility] Chloride assayOrdered By: Balbir Ruelas on 12-03-2024 Chloride [Moles/Vol] 102 mmol/L 98-108 [facility] Eosinophil percentageOrdered By: Safia Ruelas on 12-03-2024 Eosinophils/100 WBC (Bld) 1.5 % 0-5 [facility] Erythrocyte distribution wid th ratioOrdered By: Safia Ruelas on 12-03-2024 Erythrocyte distribution width (RBC) [Ratio] 14.1 % 11.6-14.6 [facility] Erythrocyte distribution wid th standard deviationOrdered By: Safia Ruelas on 12-03-2024 Erythrocyte distribution width (RBC) [Ratio] 47.9 fl High 35.1-43.9 [facility] Glomerular filtration rate ( GFR) estimation/1.73 sq m using serum, plasma, or whole bOrdered By: Safia Ruelas on 12-03-2024 GFR/1.73 sq M.predicted among non-blacks MDRD (S/P/Bld) [Vol rate/Area] 65 mL/min/{1.73_m2} >60 [facility] Hematocrit Auto (Bld) [Volum e fraction]Ordered By: Balbirjean mariedesireeskye Griderbonimelanie on 12-03-2024 Hematocrit (Bld) [Volume fraction] 40.0 % 37-47 [facility] Hemoglobin measurementOrdere d By: Safia Ruelas on 12-03-2024 Hemoglobin (Bld) [Mass/Vol] 12.9 g/dL 12.0-15.0 [facility] Immature granulocytes/100 WB C Auto (Bld)Ordered By: Balbirjean marieongskye Ruelas on 12-03-2024 Immature granulocytes/100 WBC (Bld) 0.300 % 0.0-0.9 [facility] MCV (mean corpuscular volume ) determinationOrdered By: Safia Ruelas on 12-03-2024 MCV (RBC) [Entitic vol] 91.3 fL 81-99 [facility] Mean corpuscular hemoglobin (MCH) determinationOrdered By: Safia Ruelas on 12-03-2024 MCH (RBC) [Entitic mass] 29.5 pg 27.0-32.0 [facility] Monocyte percentageOrdered B y: Safia Ruelas on 12-03-2024 Monocytes/100 WBC (Bld) 9.6 % 0-10 [facility] Neutrophil percentageOrdered By: Safia Ruelas on 12-03-2024 Neutrophils/100 WBC (Bld) 59.7 % 47-70 [facility] Platelet countOrdered By: Balbir Ruelas on 12-03-2024 Platelets (Bld) [#/Vol] 280 10*3/uL 150-450 [facility] Potassium measurement (mass/ volume)Ordered By: Safia Cheoquyen on 12-03-2024 Potassium (Unsp spec) [Mass/Vol] 4.0 mmol/L 3.3-5.1 [facility] RBC Auto (Bld) [#/Vol]Ordere d By: Safia Ruelas on 12-03-2024 RBC (Bld) [#/Vol] 4.38 10*6/uL 4.2-5.4 [facility] Serum creatinine measurement (mass/volume)Ordered By: Balbirjean mariedesireeskye Griderbonimelanie on 12-03-2024 Creatinine [Mass/Vol] 0.89 mg/dL 0.70-1.20 [facility] Serum glucose measurement (m ass/volume)Ordered By: Balbirjean mariejosé antonio Cheobonimelanie on 12-03-2024 Glucose [Mass/Vol] 77 mg/dL 70-99 [facility] Serum or plasma calcium dayna urement (mass/volume)Ordered By: Balbirjean mariejosé antonio Cheobonimelanie on 12-03-2024 Calcium [Mass/Vol] 9.6 mg/dL 7.6-11.0 [facility] Serum or plasma urea nitroge n measurement (mass/volume)Ordered By: Safia Ruelas on 12-03-2024 Urea nitrogen [Mass/Vol] 25 mg/dL High 4-19 [facility] Sodium levelOrdered By: Leonides Ruelas on 12-03-2024 Sodium [Moles/Vol] 139 mmol/L 133-145 [facility] TSH DL <= 0.005 mIU/L QnOrde red By: Safia Ruelas on 12-03-2024 TSH Qn 3.500 uIU/mL 0.300-4.200 [facility] White blood cell (WBC) count Ordered By: Safia Ruelas on 12-03-2024 WBC (Bld) [#/Vol] 9.9 10*3/uL 4.4-11.0 [facility] Absolute lymphocyte countOrd ered By: Safia Ruelas on 11-26-2024 Lymphocytes Auto (Unsp spec) [#/Vol] 2.99 10*3/uL 0.83-4.51 [facility] Absolute neutrophil countOrd ered By: Safia Ruelas on 11-26-2024 Neutrophils (Bld) [#/Vol] 4.2 10*3/uL 2.0-7.7 [facility] Anion gap in Serum or Plasma Ordered By: Safia Ruelas on 11-26-2024 Anion gap [Moles/Vol] 13 mmol/L 5- [facility] Automated lymphocyte count a s percentage of total leukocytesOrdered By: Safia Ruelas on 11-26-2024 Lymphocytes/100 WBC Auto (Unsp spec) 37.1 % 19-41 [facility] BUN/creatinine ratioOrdered By: Safia Ruelas on 11-26-2024 Urea nitrogen/Creatinine [Mass ratio] 24.3 mg/mg High 10-20 [facility] Basophil percentageOrdered B y: Bandarskye Griderbonimelanie on 11-26-2024 Basophils/100 WBC (Bld) 0.7 % 0-1 [facility] Carbon dioxide, total [Moles /volume] in Central venous bloodOrdered By: Safia Ruelas on 11-26-2024 CO2 [Moles/Vol] 27.1 mmol/L 21.0-32.0 [facility] Chloride assayOrdered By: Balbir Ruelas on 11-26-2024 Chloride [Moles/Vol] 101 mmol/L 98-108 [facility] Eosinophil percentageOrdered By: sherry Ruelas 11-26-2024 Eosinophils/100 WBC (Bld) 1.9 % 0-5 [facility] Erythrocyte distribution wid th ratioOrdered By: [facility] on 11-26-2024 Erythrocyte distribution width (RBC) [Ratio] 14.2 % 11.6-14.6 [facility] Erythrocyte distribution wid th standard deviationOrdered By: [facility] on 11-26-2024 Erythrocyte distribution width (RBC) [Ratio] 48.0 fl High 35.1-43.9 [facility] Glomerular filtration rate ( GFR) estimation/1.73 sq m using serum, plasma, or whole bOrdered By: Safia Ruelas 11-26-2024 GFR/1.73 sq M.predicted among non-blacks MDRD (S/P/Bld) [Vol rate/Area] 63 mL/min/{1.73_m2} >60 [facility] Comment on above: mL/min/1.73m2 CKD-EP I Creatinine Equation (2020) Hematocrit Auto (Bld) [Volum e fraction]Ordered By: sherry Ruelas 11-26-2024 Hematocrit (Bld) [Volume fraction] 42.7 % 37-47 [facility] Hemoglobin measurementOrdere d By: sherry Ruelas 11-26-2024 Hemoglobin (Bld) [Mass/Vol] 13.6 g/dL 12.0-15.0 [facility] Immature granulocytes/100 WB C Auto (Bld)Ordered By: Safia Ruelas 11-26-2024 Immature granulocytes/100 WBC (Bld) 0.500 % 0.0-0.9 [facility] Comment on above: IG% - Immature Granu locytes (promyelocytes, myelocytes and metamyelocytes) > 1% indicates that a LEFT SHIFT is Present. MCV (mean corpuscular volume ) determinationOrdered By: Safia Ruelas on 11-26-2024 MCV (RBC) [Entitic vol] 92.0 fL 81-99 [facility] Mean corpuscular hemoglobin (MCH) determinationOrdered By: Safia Griderbonimelanie on 11-26-2024 MCH (RBC) [Entitic mass] 29.3 pg 27.0-32.0 [facility] Mean corpuscular hemoglobin concentration (MCHC) determinationOrdered By: Safia Ruelas on 11-26-2024 MCHC (RBC) [Mass/Vol] 31.9 g/dL Low 32-36 [facility] Mean platelet volume determi nationOrdered By: Safia Ruelas on 11-26-2024 Platelet mean volume (Bld) [Entitic vol] 11.5 fL 6.2-12.0 [facility] Monocyte percentageOrdered B y: Safia Griderbonimelanie on 11-26-2024 Monocytes/100 WBC (Bld) 7.7 % 0-10 [facility] Neutrophil percentageOrdered By: jean mariearbonskye Griderbonimelanie on 11-26-2024 Neutrophils/100 WBC (Bld) 52.1 % 47-70 [facility] Nucleated red blood cell per centageOrdered By: Balbirjean mariedesireeskye Griderbonimelanie on 11-26-2024 Nucleated RBC/100 WBC (Bld) [Ratio] 0 % 0-5 [facility] Platelet countOrdered By: Balbir randallskye Ruelas on 11-26-2024 Platelets (Bld) [#/Vol] 283 10*3/uL 150-450 [facility] Potassium measurement (mass/ volume)Ordered By: Safia Ruelas on 11-26-2024 Potassium (Unsp spec) [Mass/Vol] 3.8 mmol/L 3.3-5.1 [facility] RBC Auto (Bld) [#/Vol]Ordere d By: Safia Ruelas on 11-26-2024 RBC (Bld) [#/Vol] 4.64 10*6/uL 4.2-5.4 [facility] Serum creatinine measurement (mass/volume)Ordered By: Safia Ruelas on 11-26-2024 Creatinine [Mass/Vol] 0.92 mg/dL 0.70-1.20 [facility] Serum glucose measurement (m ass/volume)Ordered By: Safia Ruelas on 11-26-2024 Glucose [Mass/Vol] 97 mg/dL 70-99 [facility] Serum or plasma calcium dayna urement (mass/volume)Ordered By: Safia Ruelas on 11-26-2024 Calcium [Mass/Vol] 10.0 mg/dL 7.6-11.0 [facility] Serum or plasma urea nitroge n measurement (mass/volume)Ordered By: Safia Ruelas on 11-26-2024 Urea nitrogen [Mass/Vol] 22 mg/dL High 4-19 [facility] Sodium levelOrdered By: Leonides jiménezradha Jessenia on 11-26-2024 Sodium [Moles/Vol] 140 mmol/L 133-145 [facility] White blood cell (WBC) count Ordered By: Safia Ruelas on 11-26-2024 WBC (Bld) [#/Vol] 8.1 10*3/uL 4.4-11.0 [facility] Clostridium difficile detect ion by polymerase chain reactionOrdered By: Safia Ruelas on 11-25-2024 C. difficile DNA CHUCKY+probe Ql (Unsp spec) [facility] Absolute lymphocyte countOrd ered By: Safia Ruelas on 11-19-2024 Lymphocytes Auto (Unsp spec) [#/Vol] 2.71 10*3/uL 0.83-4.51 [facility] Absolute neutrophil countOrd ered By: Safia Ruelas on 11-19-2024 Neutrophils (Bld) [#/Vol] 5.2 10*3/uL 2.0-7.7 [facility] Anion gap in Serum or Plasma Ordered By: Safia Ruelas on 11-19-2024 Anion gap [Moles/Vol] 12 mmol/L 5-15 [facility] Automated lymphocyte count a s percentage of total leukocytesOrdered By: Safia Ruelas on 11-19-2024 Lymphocytes/100 WBC Auto (Unsp spec) 30.4 % 19-41 [facility] BUN/creatinine ratioOrdered By: Safia Ruelas on 11-19-2024 Urea nitrogen/Creatinine [Mass ratio] 25.0 mg/mg High 10-20 [facility] Basophil percentageOrdered B y: Safia Ruelas on 11-19-2024 Basophils/100 WBC (Bld) 0.6 % 0-1 [facility] Carbon dioxide, total [Moles /volume] in Central venous bloodOrdered By: Safia Ruelas on 11-19-2024 CO2 [Moles/Vol] 25.5 mmol/L 21.0-32.0 [facility] Chloride assayOrdered By: Balbir Ruelas on 11-19-2024 Chloride [Moles/Vol] 101 mmol/L 98-108 [facility] Eosinophil percentageOrdered By: Safia Ruelas on 11-19-2024 Eosinophils/100 WBC (Bld) 2.1 % 0-5 [facility] Erythrocyte distribution wid th ratioOrdered By: jean mariearbonskye Ruelas on 11-19-2024 Erythrocyte distribution width (RBC) [Ratio] 13.9 % 11.6-14.6 [facility] Erythrocyte distribution wid th standard deviationOrdered By: Safia Ruelas on 11-19-2024 Erythrocyte distribution width (RBC) [Ratio] 46.6 fl High 35.1-43.9 [facility] Glomerular filtration rate ( GFR) estimation/1.73 sq m using serum, plasma, or whole bOrdered By: Safia Ruelas on 11-19-2024 GFR/1.73 sq M.predicted among non-blacks MDRD (S/P/Bld) [Vol rate/Area] 66 mL/min/{1.73_m2} >60 [facility] Comment on above: mL/min/1.73m2 CKD-EP I Creatinine Equation (2020) Hematocrit Auto (Bld) [Volum e fraction]Ordered By: Safia Ruelas on 11-19-2024 Hematocrit (Bld) [Volume fraction] 39.2 % 37-47 [facility] Hemoglobin measurementOrdere d By: Safia Ruelas on 11-19-2024 Hemoglobin (Bld) [Mass/Vol] 12.7 g/dL 12.0-15.0 [facility] Immature granulocytes/100 WB C Auto (Bld)Ordered By: Safia Ruelas on 11-19-2024 Immature granulocytes/100 WBC (Bld) 0.300 % 0.0-0.9 [facility] Comment on above: IG% - Immature Granu locytes (promyelocytes, myelocytes and metamyelocytes) > 1% indicates that a LEFT SHIFT is Present. MCV (mean corpuscular volume ) determinationOrdered By: Safia Ruelas on 11-19-2024 MCV (RBC) [Entitic vol] 91.4 fL 81-99 [facility] Mean corpuscular hemoglobin (MCH) determinationOrdered By: sherry Ruelas on 11-19-2024 MCH (RBC) [Entitic mass] 29.6 pg 27.0-32.0 [facility] Mean corpuscular hemoglobin concentration (MCHC) determinationOrdered By: sherry Ruelas on 11-19-2024 MCHC (RBC) [Mass/Vol] 32.4 g/dL 32-36 [facility] Mean platelet volume determi nationOrdered By: Safia Ruelas on 11-19-2024 Platelet mean volume (Bld) [Entitic vol] 11.5 fL 6.2-12.0 [facility] Monocyte percentageOrdered B y: Safia Ruelas on 11-19-2024 Monocytes/100 WBC (Bld) 7.8 % 0-10 [facility] Neutrophil percentageOrdered By: sherry Ruelas on 11-19-2024 Neutrophils/100 WBC (Bld) 58.8 % 47-70 [facility] Nucleated red blood cell per centageOrdered By: Safia Ruelas on 11-19-2024 Nucleated RBC/100 WBC (Bld) [Ratio] 0 % 0-5 [facility] Platelet countOrdered By: Balbir Ruelas on 11-19-2024 Platelets (Bld) [#/Vol] 300 10*3/uL 150-450 [facility] Potassium measurement (mass/ volume)Ordered By: Safia Ruelas on 11-19-2024 Potassium (Unsp spec) [Mass/Vol] 3.8 mmol/L 3.3-5.1 [facility] RBC Auto (Bld) [#/Vol]Ordere d By: Safia Ruelas on 11-19-2024 RBC (Bld) [#/Vol] 4.29 10*6/uL 4.2-5.4 [facility] Serum creatinine measurement (mass/volume)Ordered By: Safia Ruelas on 11-19-2024 Creatinine [Mass/Vol] 0.88 mg/dL 0.70-1.20 [facility] Serum glucose measurement (m ass/volume)Ordered By: Safia Ruelas on 11-19-2024 Glucose [Mass/Vol] 136 mg/dL High 70-99 [facility] Serum or plasma calcium dayna urement (mass/volume)Ordered By: Safia Ruelas on 11-19-2024 Calcium [Mass/Vol] 9.6 mg/dL 7.6-11.0 [facility] Serum or plasma urea nitroge n measurement (mass/volume)Ordered By: Safia Ruelas on 11-19-2024 Urea nitrogen [Mass/Vol] 22 mg/dL High 4-19 [facility] Sodium levelOrdered By: Leonides jiménezradha Jessenia on 11-19-2024 Sodium [Moles/Vol] 139 mmol/L 133-145 [facility] White blood cell (WBC) count Ordered By: Safia Ruelas on 11-19-2024 WBC (Bld) [#/Vol] 8.9 10*3/uL 4.4-11.0 [facility] Absolute lymphocyte countOrd ered By: Safia Ruelas on 11-12-2024 Lymphocytes Auto (Unsp spec) [#/Vol] 2.49 10*3/uL 0.83-4.51 [facility] Absolute neutrophil countOrd ered By: Safia Ruelas on 11-12-2024 Neutrophils (Bld) [#/Vol] 4.2 10*3/uL 2.0-7.7 [facility] Anion gap in Serum or Plasma Ordered By: Safia Ruelas on 11-12-2024 Anion gap [Moles/Vol] 12 mmol/L 5-15 [facility] Automated lymphocyte count a s percentage of total leukocytesOrdered By: Safia Ruelas on 11-12-2024 Lymphocytes/100 WBC Auto (Unsp spec) 31.9 % 19-41 [facility] BUN/creatinine ratioOrdered By: Safia Ruelas on 11-12-2024 Urea nitrogen/Creatinine [Mass ratio] 28.1 mg/mg High 10-20 [facility] Basophil percentageOrdered B y: Safia Ruelas on 11-12-2024 Basophils/100 WBC (Bld) 0.6 % 0-1 [facility] Carbon dioxide, total [Moles /volume] in Central venous bloodOrdered By: Safia Ruelas on 11-12-2024 CO2 [Moles/Vol] 25.1 mmol/L 21.0-32.0 [facility] Chloride assayOrdered By: Balbir Ruelas on 11-12-2024 Chloride [Moles/Vol] 102 mmol/L 98-108 [facility] Eosinophil percentageOrdered By: Safia Ruelas on 11-12-2024 Eosinophils/100 WBC (Bld) 2.8 % 0-5 [facility] Erythrocyte distribution wid th ratioOrdered By: Safia Ruelas on 11-12-2024 Erythrocyte distribution width (RBC) [Ratio] 13.8 % 11.6-14.6 [facility] Erythrocyte distribution wid th standard deviationOrdered By: Safia Ruelas on 11-12-2024 Erythrocyte distribution width (RBC) [Ratio] 46.7 fl High 35.1-43.9 [facility] Glomerular filtration rate ( GFR) estimation/1.73 sq m using serum, plasma, or whole bOrdered By: Safia Ruelas on 11-12-2024 GFR/1.73 sq M.predicted among non-blacks MDRD (S/P/Bld) [Vol rate/Area] 70 mL/min/{1.73_m2} >60 [facility] Comment on above: mL/min/1.73m2 CKD-EP I Creatinine Equation (2020) Hematocrit Auto (Bld) [Volum e fraction]Ordered By: Safia Ruelas on 11-12-2024 Hematocrit (Bld) [Volume fraction] 40.6 % 37-47 [facility] Hemoglobin measurementOrdere d By: Safia Ruelas on 11-12-2024 Hemoglobin (Bld) [Mass/Vol] 13.2 g/dL 12.0-15.0 [facility] Immature granulocytes/100 WB C Auto (Bld)Ordered By: Safia Ruelas on 11-12-2024 Immature granulocytes/100 WBC (Bld) 0.400 % 0.0-0.9 [facility] Comment on above: IG% - Immature Granu locytes (promyelocytes, myelocytes and metamyelocytes) > 1% indicates that a LEFT SHIFT is Present. MCV (mean corpuscular volume ) determinationOrdered By: Safia Ruelas on 11-12-2024 MCV (RBC) [Entitic vol] 92.1 fL 81-99 [facility] Mean corpuscular hemoglobin (MCH) determinationOrdered By: Safia Ruelas on 11-12-2024 MCH (RBC) [Entitic mass] 29.9 pg 27.0-32.0 [facility] Mean corpuscular hemoglobin concentration (MCHC) determinationOrdered By: Safia Ruelas on 11-12-2024 MCHC (RBC) [Mass/Vol] 32.5 g/dL 32-36 [facility] Mean platelet volume determi nationOrdered By: Safia Ruelas on 11-12-2024 Platelet mean volume (Bld) [Entitic vol] 11.7 fL 6.2-12.0 [facility] Monocyte percentageOrdered B y: Safia Ruelas on 11-12-2024 Monocytes/100 WBC (Bld) 10.0 % 0-10 [facility] Neutrophil percentageOrdered By: Safia Ruelas on 11-12-2024 Neutrophils/100 WBC (Bld) 54.3 % 47-70 [facility] [facility] Nucleated red blood cell per centageOrdered By: Safia Ruelas on 11-12-2024 Nucleated RBC/100 WBC (Bld) [Ratio] 0 % 0-5 [facility] Platelet countOrdered By: Balbir Ruelas on 11-12-2024 Platelets (Bld) [#/Vol] 304 10*3/uL 150-450 [facility] Potassium measurement (mass/ volume)Ordered By: Safia Ruelas on 11-12-2024 Potassium (Unsp spec) [Mass/Vol] 3.9 mmol/L 3.3-5.1 [facility] RBC Auto (Bld) [#/Vol]Ordere d By: Safia Ruelas on 11-12-2024 RBC (Bld) [#/Vol] 4.41 10*6/uL 4.2-5.4 [facility] Serum creatinine measurement (mass/volume)Ordered By: Safia Ruelas on 11-12-2024 Creatinine [Mass/Vol] 0.84 mg/dL 0.70-1.20 [facility] Serum glucose measurement (m ass/volume)Ordered By: Safia Ruelas on 11-12-2024 Glucose [Mass/Vol] 112 mg/dL High 70-99 [facility] Serum or plasma calcium dayna urement (mass/volume)Ordered By: Safia Ruelas on 11-12-2024 Calcium [Mass/Vol] 9.7 mg/dL 7.6-11.0 [facility] Serum or plasma urea nitroge n measurement (mass/volume)Ordered By: Safia Ruelas on 11-12-2024 Urea nitrogen [Mass/Vol] 24 mg/dL High 4-19 [facility] Sodium levelOrdered By: Leonides Ruelas on 11-12-2024 Sodium [Moles/Vol] 139 mmol/L 133-145 [facility] White blood cell (WBC) count Ordered By: Safia Ruelas on 11-12-2024 WBC (Bld) [#/Vol] 7.8 10*3/uL 4.4-11.0 [facility] Absolute lymphocyte countOrd ered By: Safia Ruelas on 11-05-2024 Lymphocytes Auto (Unsp spec) [#/Vol] 2.91 10*3/uL 0.83-4.51 [facility] Absolute neutrophil countOrd ered By: Safia Ruelas on 11-05-2024 Neutrophils (Bld) [#/Vol] 4.6 10*3/uL 2.0-7.7 [facility] Anion gap in Serum or Plasma Ordered By: Safia Griderbonimelanie on 11-05-2024 Anion gap [Moles/Vol] 13 mmol/L 5-15 [facility] Automated lymphocyte count a s percentage of total leukocytesOrdered By: Safia Griderbonimelanie on 11-05-2024 Lymphocytes/100 WBC Auto (Unsp spec) 33.7 % 19-41 [facility] BUN/creatinine ratioOrdered By: sherry Griderbonimelanie on 11-05-2024 Urea nitrogen/Creatinine [Mass ratio] 23.3 mg/mg High 10-20 [facility] Basophil percentageOrdered B y: Leonidesdesireeskye Griderbonimelanie on 11-05-2024 Basophils/100 WBC (Bld) 0.9 % 0-1 [facility] Carbon dioxide, total [Moles /volume] in Central venous bloodOrdered By: Safia Griderbonimelanie on 11-05-2024 CO2 [Moles/Vol] 24.2 mmol/L 21.0-32.0 [facility] Chloride assayOrdered By: Balbir jean mariejosé antonio Griderbonimelanie on 11-05-2024 Chloride [Moles/Vol] 102 mmol/L 98-108 [facility] Eosinophil percentageOrdered By: Safia Griderbonimelanie on 11-05-2024 Eosinophils/100 WBC (Bld) 2.7 % 0-5 [facility] Erythrocyte distribution wid th ratioOrdered By: sherry Griderbonimelanie on 11-05-2024 Erythrocyte distribution width (RBC) [Ratio] 13.9 % 11.6-14.6 [facility] Erythrocyte distribution wid th standard deviationOrdered By: jean mariearbonskye Griderbonimelanie on 11-05-2024 Erythrocyte distribution width (RBC) [Ratio] 47.1 fl High 35.1-43.9 [facility] Glomerular filtration rate ( GFR) estimation/1.73 sq m using serum, plasma, or whole bOrdered By: Safia Ruelas on 11-05-2024 GFR/1.73 sq M.predicted among non-blacks MDRD (S/P/Bld) [Vol rate/Area] 62 mL/min/{1.73_m2} >60 [facility] Comment on above: mL/min/1.73m2 CKD-EP I Creatinine Equation (2020) Hematocrit Auto (Bld) [Volum e fraction]Ordered By: Safia Ruelas on 11-05-2024 Hematocrit (Bld) [Volume fraction] 40.7 % 37-47 [facility] Hemoglobin measurementOrdere d By: Safia Ruelas on 11-05-2024 Hemoglobin (Bld) [Mass/Vol] 12.9 g/dL 12.0-15.0 [facility] Immature granulocytes/100 WB C Auto (Bld)Ordered By: Safia Ruelas on 11-05-2024 Immature granulocytes/100 WBC (Bld) 0.500 % 0.0-0.9 [facility] Comment on above: IG% - Immature Granu locytes (promyelocytes, myelocytes and metamyelocytes) > 1% indicates that a LEFT SHIFT is Present. MCV (mean corpuscular volume ) determinationOrdered By: Safia Ruelas on 11-05-2024 MCV (RBC) [Entitic vol] 92.9 fL 81-99 [facility] Mean corpuscular hemoglobin (MCH) determinationOrdered By: Safia Ruelas on 11-05-2024 MCH (RBC) [Entitic mass] 29.5 pg 27.0-32.0 [facility] Mean corpuscular hemoglobin concentration (MCHC) determinationOrdered By: Safia Ruelas on 11-05-2024 MCHC (RBC) [Mass/Vol] 31.7 g/dL Low 32-36 [facility] Mean platelet volume determi nationOrdered By: Safia Ruelas on 11-05-2024 Platelet mean volume (Bld) [Entitic vol] 11.2 fL 6.2-12.0 [facility] Monocyte percentageOrdered B y: Safia Ruelas on 11-05-2024 Monocytes/100 WBC (Bld) 8.6 % 0-10 [facility] Neutrophil percentageOrdered By: Safia Ruelas on 11-05-2024 Neutrophils/100 WBC (Bld) 53.6 % 47-70 [facility] Nucleated red blood cell per centageOrdered By: Safia Ruelas on 11-05-2024 Nucleated RBC/100 WBC (Bld) [Ratio] 0 % 0-5 [facility] Platelet countOrdered By: Balbir Ruelas on 11-05-2024 Platelets (Bld) [#/Vol] 318 10*3/uL 150-450 [facility] Potassium measurement (mass/ volume)Ordered By: Safia Ruelas on 11-05-2024 Potassium (Unsp spec) [Mass/Vol] 4.0 mmol/L 3.3-5.1 [facility] RBC Auto (Bld) [#/Vol]Ordere d By: Safia Ruelas on 11-05-2024 RBC (Bld) [#/Vol] 4.38 10*6/uL 4.2-5.4 [facility] Serum creatinine measurement (mass/volume)Ordered By: Safia Ruelas on 11-05-2024 Creatinine [Mass/Vol] 0.93 mg/dL 0.70-1.20 [facility] Serum glucose measurement (m ass/volume)Ordered By: Safia Ruelas on 11-05-2024 Glucose [Mass/Vol] 70 mg/dL 70-99 [facility] Serum or plasma calcium dayna urement (mass/volume)Ordered By: Safia Ruelas on 11-05-2024 Calcium [Mass/Vol] 9.5 mg/dL 7.6-11.0 [facility] Serum or plasma urea nitroge n measurement (mass/volume)Ordered By: Safia Ruelas on 11-05-2024 Urea nitrogen [Mass/Vol] 22 mg/dL High 4-19 [facility] Sodium levelOrdered By: Leonides Ruelas on 11-05-2024 Sodium [Moles/Vol] 139 mmol/L 133-145 [facility] White blood cell (WBC) count Ordered By: Safia Ruelas on 11-05-2024 WBC (Bld) [#/Vol] 8.6 10*3/uL 4.4-11.0 [facility] Absolute lymphocyte countOrd ered By: Safia Griderbonimelanie on 10-29-2024 Lymphocytes Auto (Unsp spec) [#/Vol] 2.69 10*3/uL 0.83-4.51 [facility] Absolute neutrophil countOrd ered By: Safia Griderbonimelanie on 10-29-2024 Neutrophils (Bld) [#/Vol] 4.5 10*3/uL 2.0-7.7 [facility] Anion gap in Serum or Plasma Ordered By: Safia Ruelas on 10-29-2024 Anion gap [Moles/Vol] 11 mmol/L 5-15 [facility] Automated lymphocyte count a s percentage of total leukocytesOrdered By: Safia Ruelas on 10-29-2024 Lymphocytes/100 WBC Auto (Unsp spec) 32.6 % 19-41 [facility] BUN/creatinine ratioOrdered By: Safia Ruelas on 10-29-2024 Urea nitrogen/Creatinine [Mass ratio] 25.2 mg/mg High 10-20 [facility] Basophil percentageOrdered B y: Leonidesdesireeskye Griderbonimelanie on 10-29-2024 Basophils/100 WBC (Bld) 0.7 % 0-1 [facility] Carbon dioxide, total [Moles /volume] in Central venous bloodOrdered By: Safia Ruelas on 10-29-2024 CO2 [Moles/Vol] 25.7 mmol/L 21.0-32.0 [facility] Chloride assayOrdered By: Balbir jean mariejosé antonio Ruelas on 10-29-2024 Chloride [Moles/Vol] 102 mmol/L 98-108 [facility] Eosinophil percentageOrdered By: Safia Griderbonimelanie on 10-29-2024 Eosinophils/100 WBC (Bld) 2.1 % 0-5 [facility] Erythrocyte distribution wid th ratioOrdered By: Safia Ruelas on 10-29-2024 Erythrocyte distribution width (RBC) [Ratio] 13.6 % 11.6-14.6 [facility] Erythrocyte distribution wid th standard deviationOrdered By: Safia Ruelas on 10-29-2024 Erythrocyte distribution width (RBC) [Ratio] 46.6 fl High 35.1-43.9 [facility] Glomerular filtration rate ( GFR) estimation/1.73 sq m using serum, plasma, or whole bOrdered By: Safia Ruelas on 10-29-2024 GFR/1.73 sq M.predicted among non-blacks MDRD (S/P/Bld) [Vol rate/Area] 59 mL/min/{1.73_m2} Low >60 [facility] Comment on above: mL/min/1.73m2 CKD-EP I Creatinine Equation (2020) Hematocrit Auto (Bld) [Volum e fraction]Ordered By: Safia Ruelas on 10-29-2024 Hematocrit (Bld) [Volume fraction] 37.8 % 37-47 [facility] Hemoglobin measurementOrdere d By: Safia Ruelas on 10-29-2024 Hemoglobin (Bld) [Mass/Vol] 12.2 g/dL 12.0-15.0 [facility] Immature granulocytes/100 WB C Auto (Bld)Ordered By: Safia Ruelas on 10-29-2024 Immature granulocytes/100 WBC (Bld) 0.400 % 0.0-0.9 [facility] Comment on above: IG% - Immature Granu locytes (promyelocytes, myelocytes and metamyelocytes) > 1% indicates that a LEFT SHIFT is Present. MCV (mean corpuscular volume ) determinationOrdered By: Safia Ruelas on 10-29-2024 MCV (RBC) [Entitic vol] 92.2 fL 81-99 [facility] Mean corpuscular hemoglobin (MCH) determinationOrdered By: Safia Ruelas 10-29-2024 MCH (RBC) [Entitic mass] 29.8 pg 27.0-32.0 [facility] Mean corpuscular hemoglobin concentration (MCHC) determinationOrdered By: jean mariearbonskye Ruelas 10-29-2024 MCHC (RBC) [Mass/Vol] 32.3 g/dL 32-36 [facility] Mean platelet volume determi nationOrdered By: Balbirjean mariedesireeskye Griderbonimelanie on 10-29-2024 Platelet mean volume (Bld) [Entitic vol] 11.1 fL 6.2-12.0 [facility] Monocyte percentageOrdered B y: Safia Griderbonimelanie on 10-29-2024 Monocytes/100 WBC (Bld) 9.9 % 0-10 [facility] Neutrophil percentageOrdered By: Safia Griderbonimelanie on 10-29-2024 Neutrophils/100 WBC (Bld) 54.3 % 47-70 [facility] Nucleated red blood cell per centageOrdered By: Safia Griderbonimelanie on 10-29-2024 Nucleated RBC/100 WBC (Bld) [Ratio] 0 % 0-5 [facility] Platelet countOrdered By: Balbir jean mariejosé antonio Ruelas on 10-29-2024 Platelets (Bld) [#/Vol] 283 10*3/uL 150-450 [facility] Potassium measurement (mass/ volume)Ordered By: Safia Ruelas on 10-29-2024 Potassium (Unsp spec) [Mass/Vol] 3.9 mmol/L 3.3-5.1 [facility] RBC Auto (Bld) [#/Vol]Ordere d By: Safia Ruelas on 10-29-2024 RBC (Bld) [#/Vol] 4.10 10*6/uL Low 4.2-5.4 [facility] Serum creatinine measurement (mass/volume)Ordered By: Safia Ruelas on 10-29-2024 Creatinine [Mass/Vol] 0.97 mg/dL 0.70-1.20 [facility] Serum glucose measurement (m ass/volume)Ordered By: Safia Ruelas on 10-29-2024 Glucose [Mass/Vol] 74 mg/dL 70-99 [facility] Serum or plasma calcium dayna urement (mass/volume)Ordered By: Safia Ruelas on 10-29-2024 Calcium [Mass/Vol] 9.5 mg/dL 7.6-11.0 [facility] Serum or plasma urea nitroge n measurement (mass/volume)Ordered By: Safia Ruelas on 10-29-2024 Urea nitrogen [Mass/Vol] 24 mg/dL High 4-19 [facility] Sodium levelOrdered By: Leonides Ruelas on 10-29-2024 Sodium [Moles/Vol] 138 mmol/L 133-145 [facility] White blood cell (WBC) count Ordered By: Safia Ruelas on 10-29-2024 WBC (Bld) [#/Vol] 8.3 10*3/uL 4.4-11.0 [facility] Bilirubin Test strip Ql (U)O rdered By: Safia Ruelas on 10-23-2024 Bilirubin Ql (U) Negative Negative [facility] Ketones Test strip Ql (U)Ord ered By: Safia Ruelas on 10-23-2024 Ketones Ql (U) Negative Negative [facility] Nitrite Test strip Ql (U)Ord ered By: Safia Ruelas on 10-23-2024 Nitrite Ql (U) Positive High Negative [facility] Protein Test strip Ql (U)Ord ered By: Safia Ruelas on 10-23-2024 Protein Ql (U) 15 mg/dl High Negative [facility] Urine clarityOrdered By: Augusto Ruelas on 10-23-2024 Clarity (U) Clear Clear [facility] Urine color determinationOrd ered By: Safia Ruelas on 10-23-2024 Color (U) Yellow Yellow [facility] Urine cultureOrdered By: Augusto Ruelas on 10-23-2024 Bacteria identified Cx Nom (U) Klebsiella pneumoniae sp pneum Abnormal [facility] Urine glucose detectionOrder ed By: Safia Ruelas on 10-23-2024 Glucose Ql (U) Normal mg/dl Normal [facility] Urine leukocyte esterase det ection by dipstickOrdered By: Safia Ruelas on 10-23-2024 Leukocyte esterase Test strip Ql (U) 500 /ul High Negative [facility] Urine pHOrdered By: Mazin Ruelas on 10-23-2024 pH (U) 6.0 [pH] 5.0 - 8.0 [facility] Urine specific gravity measu rementOrdered By: Safia Ruelas on 10-23-2024 Specific gravity (U) [Rel density] 1.010 1.002-1.030 [facility] Urine urobilinogen measureme ntOrdered By: Safia Ruelas on 10-23-2024 Urobilinogen Ql (U) Normal mg/dl Normal [facility] Absolute lymphocyte countOrd ered By: Safia Ruelas on 10-22-2024 Lymphocytes Auto (Unsp spec) [#/Vol] 3.07 10*3/uL 0.83-4.51 [facility] Absolute neutrophil countOrd ered By: Safia Ruelas on 10-22-2024 Neutrophils (Bld) [#/Vol] 4.6 10*3/uL 2.0-7.7 [facility] Anion gap in Serum or Plasma Ordered By: Safia Ruelas on 10-22-2024 Anion gap [Moles/Vol] 15 mmol/L 5-15 [facility] Automated lymphocyte count a s percentage of total leukocytesOrdered By: Safia Ruelas on 10-22-2024 Lymphocytes/100 WBC Auto (Unsp spec) 34.8 % 19-41 [facility] BUN/creatinine ratioOrdered By: Safia Ruelas on 10-22-2024 Urea nitrogen/Creatinine [Mass ratio] 28.6 mg/mg High 10-20 [facility] Basophil percentageOrdered B y: Safia Ruelas on 10-22-2024 Basophils/100 WBC (Bld) 0.9 % 0-1 [facility] Carbon dioxide, total [Moles /volume] in Central venous bloodOrdered By: Safia Ruelas on 10-22-2024 CO2 [Moles/Vol] 23.1 mmol/L 21.0-32.0 [facility] Chloride assayOrdered By: Balbir Ruelas on 10-22-2024 Chloride [Moles/Vol] 100 mmol/L 98-108 [facility] Eosinophil percentageOrdered By: Safia Ruelas on 10-22-2024 Eosinophils/100 WBC (Bld) 3.1 % 0-5 [facility] Erythrocyte distribution wid th ratioOrdered By: Safia Ruelas on 10-22-2024 Erythrocyte distribution width (RBC) [Ratio] 13.6 % 11.6-14.6 [facility] Erythrocyte distribution wid th standard deviationOrdered By: Safia Ruelas on 10-22-2024 Erythrocyte distribution width (RBC) [Ratio] 45.9 fl High 35.1-43.9 [facility] Glomerular filtration rate ( GFR) estimation/1.73 sq m using serum, plasma, or whole bOrdered By: jean mariearbonskye Ruelas on 10-22-2024 GFR/1.73 sq M.predicted among non-blacks MDRD (S/P/Bld) [Vol rate/Area] 60 mL/min/{1.73_m2} >60 [facility] Comment on above: mL/min/1.73m2 CKD-EP I Creatinine Equation (2020) Hematocrit Auto (Bld) [Volum e fraction]Ordered By: Safia Ruelas on 10-22-2024 Hematocrit (Bld) [Volume fraction] 40.7 % 37-47 [facility] Hemoglobin measurementOrdere d By: Safia Ruelas on 10-22-2024 Hemoglobin (Bld) [Mass/Vol] 13.1 g/dL 12.0-15.0 [facility] Immature granulocytes/100 WB C Auto (Bld)Ordered By: Safia Ruelas 10-22-2024 Immature granulocytes/100 WBC (Bld) 1.400 % High 0.0-0.9 [facility] Comment on above: IG% - Immature Granu locytes (promyelocytes, myelocytes and metamyelocytes) > 1% indicates that a LEFT SHIFT is Present. MCV (mean corpuscular volume ) determinationOrdered By: Safia Ruelas on 10-22-2024 MCV (RBC) [Entitic vol] 91.9 fL 81-99 [facility] Mean corpuscular hemoglobin (MCH) determinationOrdered By: Leonidesarbonskye Ruelas 10-22-2024 MCH (RBC) [Entitic mass] 29.6 pg 27.0-32.0 [facility] Mean corpuscular hemoglobin concentration (MCHC) determinationOrdered By: Safia Ruelas on 10-22-2024 MCHC (RBC) [Mass/Vol] 32.2 g/dL 32-36 [facility] Mean platelet volume determi nationOrdered By: Safia Ruelas on 10-22-2024 Platelet mean volume (Bld) [Entitic vol] 11.2 fL 6.2-12.0 [facility] Monocyte percentageOrdered B y: Safia Ruelas on 10-22-2024 Monocytes/100 WBC (Bld) 7.7 % 0-10 [facility] Neutrophil percentageOrdered By: Safia Ruelas on 10-22-2024 Neutrophils/100 WBC (Bld) 52.1 % 47-70 [facility] Nucleated red blood cell per centageOrdered By: Safia Ruelas on 10-22-2024 Nucleated RBC/100 WBC (Bld) [Ratio] 0 % 0-5 [facility] Platelet countOrdered By: Balbir Ruelas on 10-22-2024 Platelets (Bld) [#/Vol] 334 10*3/uL 150-450 [facility] Potassium measurement (mass/ volume)Ordered By: Safia Ruelas on 10-22-2024 Potassium (Unsp spec) [Mass/Vol] 3.7 mmol/L 3.3-5.1 [facility] RBC Auto (Bld) [#/Vol]Ordere d By: Safia Ruelas on 10-22-2024 RBC (Bld) [#/Vol] 4.43 10*6/uL 4.2-5.4 [facility] Serum creatinine measurement (mass/volume)Ordered By: Safia Ruelas on 10-22-2024 Creatinine [Mass/Vol] 0.96 mg/dL 0.70-1.20 [facility] Serum glucose measurement (m ass/volume)Ordered By: Safia Ruelas on 10-22-2024 Glucose [Mass/Vol] 106 mg/dL High 70-99 [facility] Serum or plasma calcium dayna urement (mass/volume)Ordered By: Efsherry Griderbonimelanie on 10-22-2024 Calcium [Mass/Vol] 9.4 mg/dL 7.6-11.0 [facility] Serum or plasma urea nitroge n measurement (mass/volume)Ordered By: Balbirjean mariedesireeskye Griderbonimelanie on 10-22-2024 Urea nitrogen [Mass/Vol] 28 mg/dL High 4-19 [facility] Sodium levelOrdered By: Leonides chou Cheobonimelanie on 10-22-2024 Sodium [Moles/Vol] 138 mmol/L 133-145 [facility] TSH DL <= 0.005 mIU/L QnOrde red By: Safia Cheoquyen on 10-22-2024 TSH Qn 4.630 uIU/mL High 0.300-4.200 [facility] White blood cell (WBC) count Ordered By: Balbirjean mariedesireeskye Griderbonimelanie on 10-22-2024 WBC (Bld) [#/Vol] 8.8 10*3/uL 4.4-11.0 [facility] Absolute lymphocyte countOrd ered By: Safia Cheoquyen on 10-15-2024 Lymphocytes Auto (Unsp spec) [#/Vol] 3.04 10*3/uL 0.83-4.51 [facility] Absolute neutrophil countOrd ered By: Balbirjean mariejosé antonio Cheoquyen on 10-15-2024 Neutrophils (Bld) [#/Vol] 4.3 10*3/uL 2.0-7.7 [facility] Anion gap in Serum or Plasma Ordered By: Balbirjean mariedesireeskye Griderbonimelanie on 10-15-2024 Anion gap [Moles/Vol] 12 mmol/L 5-15 [facility] Automated lymphocyte count a s percentage of total leukocytesOrdered By: Bandarskye Griderbonimelanie on 10-15-2024 Lymphocytes/100 WBC Auto (Unsp spec) 36.7 % 19-41 [facility] BUN/creatinine ratioOrdered By: Safia Cheobonimelanie on 10-15-2024 Urea nitrogen/Creatinine [Mass ratio] 36.5 mg/mg High 10-20 [facility] Basophil percentageOrdered B y: Bandarskye Griderbonimelanie on 06-03-2025 Basophils/100 WBC (Bld) 0.7 % 0-1 [facility] Carbon dioxide, total [Moles /volume] in Central venous bloodOrdered By: Safia Ruelas on 10-15-2024 CO2 [Moles/Vol] 25.2 mmol/L 21.0-32.0 [facility] Chloride assayOrdered By: Balbir Ruelas on 10-15-2024 Chloride [Moles/Vol] 100 mmol/L 98-108 [facility] Eosinophil percentageOrdered By: Safia Ruelas on 10-15-2024 Eosinophils/100 WBC (Bld) 2.4 % 0-5 [facility] Erythrocyte distribution wid th ratioOrdered By: sherry Ruelas on 10-15-2024 Erythrocyte distribution width (RBC) [Ratio] 13.5 % 11.6-14.6 [facility] Erythrocyte distribution wid th standard deviationOrdered By: jean mariearbonskye Ruelas on 10-15-2024 Erythrocyte distribution width (RBC) [Ratio] 45.2 fl High 35.1-43.9 [facility] Glomerular filtration rate ( GFR) estimation/1.73 sq m using serum, plasma, or whole bOrdered By: Safia Ruelas on 10-15-2024 GFR/1.73 sq M.predicted among non-blacks MDRD (S/P/Bld) [Vol rate/Area] 71 mL/min/{1.73_m2} >60 [facility] Comment on above: mL/min/1.73m2 CKD-EP I Creatinine Equation (2020) Hematocrit Auto (Bld) [Volum e fraction]Ordered By: Safia Ruelas on 10-15-2024 Hematocrit (Bld) [Volume fraction] 40.3 % 37-47 [facility] Hemoglobin measurementOrdere d By: Safia Ruelas on 10-15-2024 Hemoglobin (Bld) [Mass/Vol] 13.3 g/dL 12.0-15.0 [facility] Immature granulocytes/100 WB C Auto (Bld)Ordered By: Safia Ruelas on 10-15-2024 Immature granulocytes/100 WBC (Bld) 0.400 % 0.0-0.9 [facility] Comment on above: IG% - Immature Granu locytes (promyelocytes, myelocytes and metamyelocytes) > 1% indicates that a LEFT SHIFT is Present. MCV (mean corpuscular volume ) determinationOrdered By: Safia Ruelas on 10-15-2024 MCV (RBC) [Entitic vol] 91.0 fL 81-99 [facility] Mean corpuscular hemoglobin (MCH) determinationOrdered By: Safia Ruelas on 10-15-2024 MCH (RBC) [Entitic mass] 30.0 pg 27.0-32.0 [facility] Mean corpuscular hemoglobin concentration (MCHC) determinationOrdered By: Safia Ruelas on 10-15-2024 MCHC (RBC) [Mass/Vol] 33.0 g/dL 32-36 [facility] Mean platelet volume determi nationOrdered By: Safia Ruelas on 10-15-2024 Platelet mean volume (Bld) [Entitic vol] 11.9 fL 6.2-12.0 [facility] Monocyte percentageOrdered B y: Safia Ruelas on 10-15-2024 Monocytes/100 WBC (Bld) 8.2 % 0-10 [facility] Neutrophil percentageOrdered By: Safia Ruelas on 10-15-2024 Neutrophils/100 WBC (Bld) 51.6 % 47-70 [facility] Nucleated red blood cell per centageOrdered By: Safia Ruelas on 10-15-2024 Nucleated RBC/100 WBC (Bld) [Ratio] 0 % 0-5 [facility] Platelet countOrdered By: Balbir Ruelas on 10-15-2024 Platelets (Bld) [#/Vol] 221 10*3/uL 150-450 [facility] Potassium measurement (mass/ volume)Ordered By: Safia Ruelas on 10-15-2024 Potassium (Unsp spec) [Mass/Vol] 3.8 mmol/L 3.3-5.1 [facility] RBC Auto (Bld) [#/Vol]Ordere d By: Safia Ruelas on 10-15-2024 RBC (Bld) [#/Vol] 4.43 10*6/uL 4.2-5.4 [facility] Serum creatinine measurement (mass/volume)Ordered By: Balbirjean mariedesireeskye Griderbonimelanie on 10-15-2024 Creatinine [Mass/Vol] 0.83 mg/dL 0.70-1.20 [facility] Serum glucose measurement (m ass/volume)Ordered By: Safia Griderbonimelanie on 10-15-2024 Glucose [Mass/Vol] 68 mg/dL Low 70-99 [facility] Serum or plasma calcium dayna urement (mass/volume)Ordered By: Safia Griderbonimelanie on 10-15-2024 Calcium [Mass/Vol] 9.3 mg/dL 7.6-11.0 [facility] Serum or plasma urea nitroge n measurement (mass/volume)Ordered By: Safia Griderbonimelanie on 10-15-2024 Urea nitrogen [Mass/Vol] 30 mg/dL High 4-19 [facility] Sodium levelOrdered By: Balbirjean marie chou Cheobonimelanie on 10-15-2024 Sodium [Moles/Vol] 138 mmol/L 133-145 [facility] White blood cell (WBC) count Ordered By: Safia Griderbonimelanie on 10-15-2024 WBC (Bld) [#/Vol] 8.3 10*3/uL 4.4-11.0 [facility] Absolute lymphocyte countOrd ered By: Safia Ruelas on 10-08-2024 Lymphocytes Auto (Unsp spec) [#/Vol] 2.52 10*3/uL 0.83-4.51 [facility] Absolute neutrophil countOrd ered By: Bandarskye Griderbonimelanie on 10-08-2024 Neutrophils (Bld) [#/Vol] 4.9 10*3/uL 2.0-7.7 [facility] Anion gap in Serum or Plasma Ordered By: Bandarskye Griderbonimelanie on 10-08-2024 Anion gap [Moles/Vol] 14 mmol/L 5-15 [facility] Automated lymphocyte count a s percentage of total leukocytesOrdered By: Safia Ruelas on 10-08-2024 Lymphocytes/100 WBC Auto (Unsp spec) 29.4 % 19-41 [facility] BUN/creatinine ratioOrdered By: Safia Ruelas on 10-08-2024 Urea nitrogen/Creatinine [Mass ratio] 34.1 mg/mg High 10-20 [facility] [facility] Basophil percentageOrdered B y: Safia Ruelas on 10-08-2024 Basophils/100 WBC (Bld) 0.7 % 0-1 [facility] Carbon dioxide, total [Moles /volume] in Central venous bloodOrdered By: Safia Ruelas on 10-08-2024 CO2 [Moles/Vol] 24.0 mmol/L 21.0-32.0 [facility] Chloride assayOrdered By: Balbir Ruelas on 10-08-2024 Chloride [Moles/Vol] 100 mmol/L 98-108 [facility] Eosinophil percentageOrdered By: Safia Ruelas on 10-08-2024 Eosinophils/100 WBC (Bld) 2.6 % 0-5 [facility] Erythrocyte distribution wid th ratioOrdered By: Safia Ruelas on 10-08-2024 Erythrocyte distribution width (RBC) [Ratio] 13.2 % 11.6-14.6 [facility] Erythrocyte distribution wid th standard deviationOrdered By: Safia Ruelas on 10-08-2024 Erythrocyte distribution width (RBC) [Ratio] 45.3 fl High 35.1-43.9 [facility] Glomerular filtration rate ( GFR) estimation/1.73 sq m using serum, plasma, or whole bOrdered By: Safia Ruelas on 10-08-2024 GFR/1.73 sq M.predicted among non-blacks MDRD (S/P/Bld) [Vol rate/Area] 65 mL/min/{1.73_m2} >60 [facility] Comment on above: mL/min/1.73m2 CKD-EP I Creatinine Equation (2020) Hematocrit Auto (Bld) [Volum e fraction]Ordered By: Safia Ruelas on 10-08-2024 Hematocrit (Bld) [Volume fraction] 41.7 % 37-47 [facility] Hemoglobin measurementOrdere d By: Safia Ruelas on 10-08-2024 Hemoglobin (Bld) [Mass/Vol] 13.3 g/dL 12.0-15.0 [facility] Immature granulocytes/100 WB C Auto (Bld)Ordered By: Safia Ruleas on 10-08-2024 Immature granulocytes/100 WBC (Bld) 0.400 % 0.0-0.9 [facility] Comment on above: IG% - Immature Granu locytes (promyelocytes, myelocytes and metamyelocytes) > 1% indicates that a LEFT SHIFT is Present. MCV (mean corpuscular volume ) determinationOrdered By: Safia Ruelas on 10-08-2024 MCV (RBC) [Entitic vol] 92.7 fL 81-99 [facility] Mean corpuscular hemoglobin (MCH) determinationOrdered By: Safia Ruelas on 10-08-2024 MCH (RBC) [Entitic mass] 29.6 pg 27.0-32.0 [facility] Mean corpuscular hemoglobin concentration (MCHC) determinationOrdered By: Safia Ruelas on 10-08-2024 MCHC (RBC) [Mass/Vol] 31.9 g/dL Low 32-36 [facility] Mean platelet volume determi nationOrdered By: Safia Ruelas on 10-08-2024 Platelet mean volume (Bld) [Entitic vol] 11.0 fL 6.2-12.0 [facility] Monocyte percentageOrdered B y: Safia Ruelas on 10-08-2024 Monocytes/100 WBC (Bld) 9.2 % 0-10 [facility] Neutrophil percentageOrdered By: Safia Ruelas on 10-08-2024 Neutrophils/100 WBC (Bld) 57.7 % 47-70 [facility] Nucleated red blood cell per centageOrdered By: Safia Ruelas on 10-08-2024 Nucleated RBC/100 WBC (Bld) [Ratio] 0 % 0-5 [facility] Platelet countOrdered By: Balbir Ruelas on 10-08-2024 Platelets (Bld) [#/Vol] 323 10*3/uL 150-450 [facility] Potassium measurement (mass/ volume)Ordered By: Safia Ruelas on 10-08-2024 Potassium (Unsp spec) [Mass/Vol] 4.1 mmol/L 3.3-5.1 [facility] RBC Auto (Bld) [#/Vol]Ordere d By: Safia Ruelas on 10-08-2024 RBC (Bld) [#/Vol] 4.50 10*6/uL 4.2-5.4 [facility] Serum creatinine measurement (mass/volume)Ordered By: Safia Ruelas on 10-08-2024 Creatinine [Mass/Vol] 0.90 mg/dL 0.70-1.20 [facility] Serum glucose measurement (m ass/volume)Ordered By: Safia Ruelas on 10-08-2024 Glucose [Mass/Vol] 82 mg/dL 70-99 [facility] Serum or plasma calcium dayna urement (mass/volume)Ordered By: sherry Ruelas on 10-08-2024 Calcium [Mass/Vol] 9.6 mg/dL 7.6-11.0 [facility] Serum or plasma urea nitroge n measurement (mass/volume)Ordered By: Safia Ruelas on 10-08-2024 Urea nitrogen [Mass/Vol] 31 mg/dL High 4-19 [facility] Sodium levelOrdered By: Leonides josé antonio Jessenia on 10-08-2024 Sodium [Moles/Vol] 138 mmol/L 133-145 [facility] White blood cell (WBC) count Ordered By: Safia Ruelas on 10-08-2024 WBC (Bld) [#/Vol] 8.6 10*3/uL 4.4-11.0 [facility] 12 [place] [facility] [place] 12 Lead EKG performed by [facility] [address] [place] [address] 12 Lead [place] [facility] [place]/02/24 0921 MR#: [id number] Acct: [id number] Name: LINDSAY ACUNA Rep #: [id number] : 1945 78 From: Mj Benavides MD Attending Dr: Dr. Mj Benavides MD Status: DEP Robb MONTANEZ Ordering Dr: Mj Benavides MD Date: 10/02/24 [place] [facility] [place] Sex: F C Admitted: BMS/12 [place] [facility] [place] Report Interpretation ---Atrial fibrillation -irregular conduction -Old anterior infarct. ABNORMAL Electronically signed on 10/02/2024 at 16:06 by Mj Benavides [employer] Software Version [id number] 10/02/24 1608 Date Mj Benavides MD CC: Dr. Kameron Caruso MD Date Dictated: 10/02/24920 Date Transcribed: 10/02/24920 Tube Bending Machine Operator: [place] Signed Normal [facility] Cardiology Visit Reporton Cardiology Visit Report [facility] [address] [place] [address] OFFICE VISIT Date of Service: 10/02/24 MR#: [id number] Acct: [id number] Name: LINDSAY ACUNA Rep #: [id number] : 1945 Provider: Dr. Mj Benavides MD Age/Sex: 78/F Location: [facility] [place] Status: Signed HPI HPI History of Present [...] now she is currently domiciled in a [facility]. Her previous echocardiogram which was performed in [...] d/t W/C bound Intake Visit Reasons: AFIB ([facility]) Tour Operator Required: No Accompanied by: Significant Other Is [...] normal, nasal (more content not included)... Normal [facility] Absolute lymphocyte countOrd ered By: Safia Ruelas on 10-01-2024 Lymphocytes Auto (Unsp spec) [#/Vol] 2.45 10*3/uL 0.83-4.51 [facility] Absolute neutrophil countOrd ered By: Safia Ruelas on 10-01-2024 Neutrophils (Bld) [#/Vol] 6.5 10*3/uL 2.0-7.7 [facility] Anion gap in Serum or Plasma Ordered By: Safia Ruelas on 10-01-2024 Anion gap [Moles/Vol] 12 mmol/L 5- [facility] Automated lymphocyte count a s percentage of total leukocytesOrdered By: Safia Ruelas on 10-01-2024 Lymphocytes/100 WBC Auto (Unsp spec) 23.1 % 19- [facility] BUN/creatinine ratioOrdered By: Safia Ruelas on 10-01-2024 Urea nitrogen/Creatinine [Mass ratio] 24.9 mg/mg High 10- [facility] Basophil percentageOrdered B y: Safia Ruelas on 10-01-2024 Basophils/100 WBC (Bld) 0.5 % 0-1 [facility] Carbon dioxide, total [Moles /volume] in Central venous bloodOrdered By: Safia Ruelas on 10-01-2024 CO2 [Moles/Vol] 24.4 mmol/L 21.0-32.0 [facility] Chloride assayOrdered By: Balbir Ruelas on 10-01-2024 Chloride [Moles/Vol] 99 mmol/L 98-108 [facility] Eosinophil percentageOrdered By: Safia Ruelas on 10-01-2024 Eosinophils/100 WBC (Bld) 2.0 % 0-5 [facility] Erythrocyte distribution wid th ratioOrdered By: Safia Ruelas on 10-01-2024 Erythrocyte distribution width (RBC) [Ratio] 13.5 % 11.6-14.6 [facility] Erythrocyte distribution wid th standard deviationOrdered By: sherry Ruelas on 10-01-2024 Erythrocyte distribution width (RBC) [Ratio] 46.2 fl High 35.1-43.9 [facility] Glomerular filtration rate ( GFR) estimation/1.73 sq m using serum, plasma, or whole bOrdered By: Safia Ruelas on 10-01-2024 GFR/1.73 sq M.predicted among non-blacks MDRD (S/P/Bld) [Vol rate/Area] 63 mL/min/{1.73_m2} >60 [facility] Comment on above: mL/min/1.73m2 CKD-EP I Creatinine Equation (2020) Hematocrit Auto (Bld) [Volum e fraction]Ordered By: Safia Ruelas on 10-01-2024 Hematocrit (Bld) [Volume fraction] 38.7 % 37-47 [facility] Hemoglobin measurementOrdere d By: Safia Ruelas on 10-01-2024 Hemoglobin (Bld) [Mass/Vol] 12.5 g/dL 12.0-15.0 [facility] Immature granulocytes/100 WB C Auto (Bld)Ordered By: Safia Ruelas on 10-01-2024 Immature granulocytes/100 WBC (Bld) 0.800 % 0.0-0.9 [facility] Comment on above: IG% - Immature Granu locytes (promyelocytes, myelocytes and metamyelocytes) > 1% indicates that a LEFT SHIFT is Present. MCV (mean corpuscular volume ) determinationOrdered By: Safia Ruelas on 10-01-2024 MCV (RBC) [Entitic vol] 93.3 fL 81-99 [facility] Mean corpuscular hemoglobin (MCH) determinationOrdered By: jean mariearbonskye Ruelas on 10-01-2024 MCH (RBC) [Entitic mass] 30.1 pg 27.0-32.0 [facility] Mean corpuscular hemoglobin concentration (MCHC) determinationOrdered By: Safia Ruelas on 10-01-2024 MCHC (RBC) [Mass/Vol] 32.3 g/dL 32-36 [facility] Mean platelet volume determi nationOrdered By: Safia Ruelas on 10-01-2024 Platelet mean volume (Bld) [Entitic vol] 11.7 fL 6.2-12.0 [facility] Monocyte percentageOrdered B y: Safia Ruelas on 10-01-2024 Monocytes/100 WBC (Bld) 12.7 % High 0-10 [facility] Neutrophil percentageOrdered By: Safia Ruelas on 10-01-2024 Neutrophils/100 WBC (Bld) 60.9 % 47-70 [facility] Nucleated red blood cell per centageOrdered By: Safia Ruelas on 10-01-2024 Nucleated RBC/100 WBC (Bld) [Ratio] 0 % 0-5 [facility] Platelet countOrdered By: Balbir Ruelas on 10-01-2024 Platelets (Bld) [#/Vol] 371 10*3/uL 150-450 [facility] Potassium measurement (mass/ volume)Ordered By: Safia Ruelas on 10-01-2024 Potassium (Unsp spec) [Mass/Vol] 4.2 mmol/L 3.3-5.1 [facility] RBC Auto (Bld) [#/Vol]Ordere d By: Safia Ruelas on 10-01-2024 RBC (Bld) [#/Vol] 4.15 10*6/uL Low 4.2-5.4 [facility] Serum creatinine measurement (mass/volume)Ordered By: Safia Ruelas on 10-01-2024 Creatinine [Mass/Vol] 0.93 mg/dL 0.70-1.20 [facility] Serum glucose measurement (m ass/volume)Ordered By: Safia Ruelas on 10-01-2024 Glucose [Mass/Vol] 93 mg/dL 70-99 [facility] Serum or plasma calcium dayna urement (mass/volume)Ordered By: Safia Ruelas on 10-01-2024 Calcium [Mass/Vol] 9.5 mg/dL 7.6-11.0 [facility] Serum or plasma urea nitroge n measurement (mass/volume)Ordered By: Safia Ruelas on 10-01-2024 Urea nitrogen [Mass/Vol] 23 mg/dL High 4-19 [facility] Sodium levelOrdered By: Leonides Ruelas on 10-01-2024 Sodium [Moles/Vol] 135 mmol/L 133-145 [facility] White blood cell (WBC) count Ordered By: Safia Ruelas on 10-01-2024 WBC (Bld) [#/Vol] 10.6 10*3/uL 4.4-11.0 [facility] Clostridium difficile detect ion by polymerase chain reactionOrdered By: Safia Ruelas on 09-29-2024 C. difficile DNA CHUCKY+probe Ql (Unsp spec) [facility] Absolute lymphocyte countOrd ered By: Safia Ruelas on 09-24-2024 Lymphocytes Auto (Unsp spec) [#/Vol] 2.72 10*3/uL 0.83-4.51 [facility] Absolute neutrophil countOrd ered By: Safia Ruelas on 09-24-2024 Neutrophils (Bld) [#/Vol] 6.3 10*3/uL 2.0-7.7 [facility] Anion gap in Serum or Plasma Ordered By: Safia Ruelas on 09-24-2024 Anion gap [Moles/Vol] 12 mmol/L 5-15 [facility] Automated lymphocyte count a s percentage of total leukocytesOrdered By: Safia Ruelas on 09-24-2024 Lymphocytes/100 WBC Auto (Unsp spec) 26.3 % 19-41 [facility] BUN/creatinine ratioOrdered By: Safia Ruelas on 09-24-2024 Urea nitrogen/Creatinine [Mass ratio] 36.4 mg/mg High 10-20 [facility] Basophil percentageOrdered B y: Safia Ruelas on 09-24-2024 Basophils/100 WBC (Bld) 0.7 % 0-1 [facility] Carbon dioxide, total [Moles /volume] in Central venous bloodOrdered By: Safia Ruelas on 09-24-2024 CO2 [Moles/Vol] 24.1 mmol/L 21.0-32.0 [facility] Chloride assayOrdered By: Balbir Ruelas on 09-24-2024 Chloride [Moles/Vol] 100 mmol/L 98-108 [facility] Eosinophil percentageOrdered By: Safia Ruelas on 09-24-2024 Eosinophils/100 WBC (Bld) 2.7 % 0-5 [facility] Erythrocyte distribution wid th ratioOrdered By: Safia Ruelas on 09-24-2024 Erythrocyte distribution width (RBC) [Ratio] 13.6 % 11.6-14.6 [facility] Erythrocyte distribution wid th standard deviationOrdered By: Safia Ruelas on 09-24-2024 Erythrocyte distribution width (RBC) [Ratio] 47.1 fl High 35.1-43.9 [facility] Glomerular filtration rate ( GFR) estimation/1.73 sq m using serum, plasma, or whole bOrdered By: Safia Ruelas on 09-24-2024 GFR/1.73 sq M.predicted among non-blacks MDRD (S/P/Bld) [Vol rate/Area] 62 mL/min/{1.73_m2} >60 [facility] Comment on above: mL/min/1.73m2 CKD-EP I Creatinine Equation (2020) Hematocrit Auto (Bld) [Volum e fraction]Ordered By: Safia Ruelas on 09-24-2024 Hematocrit (Bld) [Volume fraction] 41.2 % 37-47 [facility] Hemoglobin measurementOrdere d By: Safia Ruelas on 09-24-2024 Hemoglobin (Bld) [Mass/Vol] 13.0 g/dL 12.0-15.0 [facility] Immature granulocytes/100 WB C Auto (Bld)Ordered By: Safia Ruelas on 09-24-2024 Immature granulocytes/100 WBC (Bld) 1.000 % High 0.0-0.9 [facility] Comment on above: IG% - Immature Granu locytes (promyelocytes, myelocytes and metamyelocytes) > 1% indicates that a LEFT SHIFT is Present. MCV (mean corpuscular volume ) determinationOrdered By: Safia Ruelas on 09-24-2024 MCV (RBC) [Entitic vol] 94.3 fL 81-99 [facility] Mean corpuscular hemoglobin (MCH) determinationOrdered By: Safia Ruelas on 09-24-2024 MCH (RBC) [Entitic mass] 29.7 pg 27.0-32.0 [facility] Mean corpuscular hemoglobin concentration (MCHC) determinationOrdered By: Safia Ruelas on 09-24-2024 MCHC (RBC) [Mass/Vol] 31.6 g/dL Low 32-36 [facility] Mean platelet volume determi nationOrdered By: Safia Ruelas on 09-24-2024 Platelet mean volume (Bld) [Entitic vol] 11.3 fL 6.2-12.0 [facility] Monocyte percentageOrdered B y: Safia Ruelas on 09-24-2024 Monocytes/100 WBC (Bld) 8.9 % 0-10 [facility] Neutrophil percentageOrdered By: Safia Ruelas on 09-24-2024 Neutrophils/100 WBC (Bld) 60.4 % 47-70 [facility] Nucleated red blood cell per centageOrdered By: Safia Ruelas on 09-24-2024 Nucleated RBC/100 WBC (Bld) [Ratio] 0 % 0-5 [facility] Platelet countOrdered By: Balbir jean mariejosé antonio Ruelas on 09-24-2024 Platelets (Bld) [#/Vol] 441 10*3/uL 150-450 [facility] Potassium measurement (mass/ volume)Ordered By: Safia Ruelas on 09-24-2024 Potassium (Unsp spec) [Mass/Vol] 4.3 mmol/L 3.3-5.1 [facility] RBC Auto (Bld) [#/Vol]Ordere d By: Safia Ruelas on 09-24-2024 RBC (Bld) [#/Vol] 4.37 10*6/uL 4.2-5.4 [facility] Serum creatinine measurement (mass/volume)Ordered By: Safia Ruelas on 09-24-2024 Creatinine [Mass/Vol] 0.93 mg/dL 0.70-1.20 [facility] Serum glucose measurement (m ass/volume)Ordered By: Safia Ruelas on 09-24-2024 Glucose [Mass/Vol] 48 mg/dL Low 70-99 [facility] Serum or plasma calcium dayna urement (mass/volume)Ordered By: Safia Ruelas on 09-24-2024 Calcium [Mass/Vol] 9.5 mg/dL 7.6-11.0 [facility] Serum or plasma urea nitroge n measurement (mass/volume)Ordered By: Safia Ruelas on 09-24-2024 Urea nitrogen [Mass/Vol] 34 mg/dL High 4-19 [facility] Sodium levelOrdered By: Leonides jiménezradha Jessenia on 09-24-2024 Sodium [Moles/Vol] 136 mmol/L 133-145 [facility] White blood cell (WBC) count Ordered By: Safia Ruelas on 09-24-2024 WBC (Bld) [#/Vol] 10.4 10*3/uL 4.4-11.0 [facility] Absolute lymphocyte countOrd ered By: Safia Ruelas on 09-17-2024 Lymphocytes Auto (Unsp spec) [#/Vol] 2.52 10*3/uL 0.83-4.51 [facility] Absolute neutrophil countOrd ered By: Safia Ruelas on 09-17-2024 Neutrophils (Bld) [#/Vol] 5.8 10*3/uL 2.0-7.7 [facility] Anion gap in Serum or Plasma Ordered By: Safia Ruelas on 09-17-2024 Anion gap [Moles/Vol] 12 mmol/L 5-15 [facility] Automated lymphocyte count a s percentage of total leukocytesOrdered By: Safia Ruelas on 09-17-2024 Lymphocytes/100 WBC Auto (Unsp spec) 26.3 % 19-41 [facility] BUN/creatinine ratioOrdered By: Safia Ruelas on 09-17-2024 Urea nitrogen/Creatinine [Mass ratio] 45.9 mg/mg High 10-20 [facility] Basophil percentageOrdered B y: Safia Ruelas on 09-17-2024 Basophils/100 WBC (Bld) 0.6 % 0-1 [facility] Calculated very low density lipoprotein (VLDL) cholesterol measurementOrdered By: Safia Ruelas on 09-17-2024 Calculated very low density lipoprotein (VLDL) cholesterol measurement 22 mg/dL -40 [facility] Carbon dioxide, total [Moles /volume] in Central venous bloodOrdered By: Safia Ruelas on 09-17-2024 CO2 [Moles/Vol] 24.5 mmol/L 21.0-32.0 [facility] Chloride assayOrdered By: Balbir Ruelas on 09-17-2024 Chloride [Moles/Vol] 98 mmol/L 98-108 [facility] Eosinophil percentageOrdered By: Safia Ruelas on 09-17-2024 Eosinophils/100 WBC (Bld) 3.2 % 0-5 [facility] Erythrocyte distribution wid th ratioOrdered By: Safia Ruelas on 09-17-2024 Erythrocyte distribution width (RBC) [Ratio] 13.4 % 11.6-14.6 [facility] Erythrocyte distribution wid th standard deviationOrdered By: Safia Ruelas on 09-17-2024 Erythrocyte distribution width (RBC) [Ratio] 45.4 fl High 35.1-43.9 [facility] Glomerular filtration rate ( GFR) estimation/1.73 sq m using serum, plasma, or whole bOrdered By: Safia Ruelas on 09-17-2024 GFR/1.73 sq M.predicted among non-blacks MDRD (S/P/Bld) [Vol rate/Area] 69 mL/min/{1.73_m2} >60 [facility] Comment on above: mL/min/1.73m2 CKD-EP I Creatinine Equation (2020) Hematocrit Auto (Bld) [Volum e fraction]Ordered By: Safia Ruelas on 09-17-2024 Hematocrit (Bld) [Volume fraction] 38.8 % 37-47 [facility] Hemoglobin measurementOrdere d By: Safia Ruelas on 09-17-2024 Hemoglobin (Bld) [Mass/Vol] 12.6 g/dL 12.0-15.0 [facility] Immature granulocytes/100 WB C Auto (Bld)Ordered By: Safia Ruelas on 09-17-2024 Immature granulocytes/100 WBC (Bld) 0.700 % 0.0-0.9 [facility] Comment on above: IG% - Immature Granu locytes (promyelocytes, myelocytes and metamyelocytes) > 1% indicates that a LEFT SHIFT is Present. LDL calc ser/plasOrdered By: Safia Ruelas on 09-17-2024 Cholesterol in LDL [Mass/Vol] 120 mg/dL [facility] Comment on above: Zdxprwyxlr=840-554 m g/dL & Higher Xzgy=402 mg/dL or greater MCV (mean corpuscular volume ) determinationOrdered By: Safia Ruelas on 09-17-2024 MCV (RBC) [Entitic vol] 91.7 fL 81-99 [facility] Mean corpuscular hemoglobin (MCH) determinationOrdered By: Safia Ruelas on 09-17-2024 MCH (RBC) [Entitic mass] 29.8 pg 27.0-32.0 [facility] Mean corpuscular hemoglobin concentration (MCHC) determinationOrdered By: Safia Ruelas on 09-17-2024 MCHC (RBC) [Mass/Vol] 32.5 g/dL 32-36 [facility] Mean platelet volume determi nationOrdered By: Safia Ruelas on 09-17-2024 Platelet mean volume (Bld) [Entitic vol] 11.4 fL 6.2-12.0 [facility] Monocyte percentageOrdered B y: Safia Ruelas on 09-17-2024 Monocytes/100 WBC (Bld) 8.5 % 0-10 [facility] Neutrophil percentageOrdered By: jean mariearbonskye Ruelas on 09-17-2024 Neutrophils/100 WBC (Bld) 60.7 % 47-70 [facility] Nucleated red blood cell per centageOrdered By: Safia Ruelas on 09-17-2024 Nucleated RBC/100 WBC (Bld) [Ratio] 0 % 0-5 [facility] Platelet countOrdered By: Balbir Ruelas on 09-17-2024 Platelets (Bld) [#/Vol] 311 10*3/uL 150-450 [facility] Potassium measurement (mass/ volume)Ordered By: Safia Ruelas on 09-17-2024 Potassium (Unsp spec) [Mass/Vol] 4.1 mmol/L 3.3-5.1 [facility] RBC Auto (Bld) [#/Vol]Ordere d By: Safia Ruelas on 09-17-2024 RBC (Bld) [#/Vol] 4.23 10*6/uL 4.2-5.4 [facility] Screening total cholesterol/ high density lipoprotein (HDL) cholesterol ratioOrdered By: Safia Ruelas on 09-17-2024 Cholesterol.total/Alta sterol in HDL [Mass ratio] 5.38 {ratio} [facility] Serum creatinine measurement (mass/volume)Ordered By: Safia Ruelas on 09-17-2024 Creatinine [Mass/Vol] 0.86 mg/dL 0.70-1.20 [facility] Serum glucose measurement (m ass/volume)Ordered By: Safia Ruelas on 09-17-2024 Glucose [Mass/Vol] 216 mg/dL High 70-99 [facility] Serum or plasma calcium dayna urement (mass/volume)Ordered By: Safia Ruelas on 09-17-2024 Calcium [Mass/Vol] 9.4 mg/dL 7.6-11.0 [facility] Serum or plasma cholesterol in HDL measurement (mass/volume)Ordered By: Safia Ruelas on 09-17-2024 Cholesterol in HDL [Mass/Vol] 33 mg/dL Low >40 [facility] Comment on above: National Cholesterol Education Program (NCEP) guidelines:<40 mg/dL: Low HDL-cholesterol (major risk factor for CHD)>= 60 mg/dL: High HDL-cholesterol (negative risk factor for CHD)HDL-cholesterol is affected by a number of factors, e.g. smoking, exercise, hormones, sex and age. Serum or plasma cholesterol measurement (mass/volume)Ordered By: Safia Ruelas on 09-17-2024 Cholesterol [Mass/Vol] 175 mg/dL <201 [facility] Comment on above: Cholesterol level, D esirable <200 mg/dLBorderline high cholesterol 200-239 mg/dLHigh cholesterol >=240 mg/dLRecommendations of the NCEP Adult Treatment Panel for the following risk-cutoff thresholds for the [place] population. Serum or plasma urea nitroge n measurement (mass/volume)Ordered By: Safia Ruelas on 09-17-2024 Urea nitrogen [Mass/Vol] 39 mg/dL High 4-19 [facility] Sodium levelOrdered By: Leonides Ruelas on 09-17-2024 Sodium [Moles/Vol] 134 mmol/L 133-145 [facility] TSH DL <= 0.005 mIU/L QnOrde red By: Safia Ruelas on 09-17-2024 TSH Qn 3.500 uIU/mL 0.300-4.200 [facility] Triglycerides measurementOrd ered By: Leonidesdesireeskye Griderbonimelanie on 09-17-2024 Triglyceride [Mass/Vol] 111 mg/dL <199 [facility] Comment on above: The drugs N-Acetylcy steine and Metamizole may falsely depress this assay. Normal range: <150 mg/dLBorderline High: 150-199 mg/dLHigh: 200-499 mg/dLVery High: >500 mg/dL White blood cell (WBC) count Ordered By: Safia Ruelas on 09-17-2024 WBC (Bld) [#/Vol] 9.6 10*3/uL 4.4-11.0 [facility] Absolute lymphocyte countOrd ered By: Leonidesdesireeskye Griderbonimelanie on 09-10-2024 Lymphocytes Auto (Unsp spec) [#/Vol] 2.11 10*3/uL 0.83-4.51 [facility] Absolute neutrophil countOrd ered By: Balbirjean mariedesireeskye Griderbonimelanie on 09-10-2024 Neutrophils (Bld) [#/Vol] 8.1 10*3/uL High 2.0-7.7 [facility] Anion gap in Serum or Plasma Ordered By: Safia Griderbonimelanie on 09-10-2024 Anion gap [Moles/Vol] 13 mmol/L 5-15 [facility] Automated lymphocyte count a s percentage of total leukocytesOrdered By: Safia Ruelas on 09-10-2024 Lymphocytes/100 WBC Auto (Unsp spec) 17.9 % Low 19-41 [facility] BUN/creatinine ratioOrdered By: Balbirsherry Griderbonimelanie on 09-10-2024 Urea nitrogen/Creatinine [Mass ratio] 29.1 mg/mg High 10-20 [facility] Basophil percentageOrdered B y: Leonidesdesireeskye Griderbonimelanie on 09-10-2024 Basophils/100 WBC (Bld) 0.3 % 0-1 [facility] Bilirubin, totalOrdered By: Safia Ruelas on 09-10-2024 Bilirubin [Mass/Vol] 0.55 mg/dL 0.00-1.30 [facility] Carbon dioxide, total [Moles /volume] in Central venous bloodOrdered By: Safia Ruelas on 09-10-2024 CO2 [Moles/Vol] 23.6 mmol/L 21.0-32.0 [facility] Chloride assayOrdered By: Balbir Ruelas on 09-10-2024 Chloride [Moles/Vol] 97 mmol/L Low 98-108 [facility] [facility] Eosinophil percentageOrdered By: Safia Ruelas on 09-10-2024 Eosinophils/100 WBC (Bld) 0.5 % 0-5 [facility] Erythrocyte distribution wid th ratioOrdered By: jean mariearbonskye Ruelas on 09-10-2024 Erythrocyte distribution width (RBC) [Ratio] 13.4 % 11.6-14.6 [facility] Erythrocyte distribution wid th standard deviationOrdered By: Safia Ruelas on 09-10-2024 Erythrocyte distribution width (RBC) [Ratio] 45.2 fl High 35.1-43.9 [facility] Glomerular filtration rate ( GFR) estimation/1.73 sq m using serum, plasma, or whole bOrdered By: Safia Reulas on 09-10-2024 GFR/1.73 sq M.predicted among non-blacks MDRD (S/P/Bld) [Vol rate/Area] 59 mL/min/{1.73_m2} Low >60 [facility] Comment on above: mL/min/1.73m2 CKD-EP I Creatinine Equation (2020) Hematocrit Auto (Bld) [Volum e fraction]Ordered By: Safia Ruelas on 09-10-2024 Hematocrit (Bld) [Volume fraction] 41.8 % 37-47 [facility] Hemoglobin measurementOrdere d By: Safia Ruelas on 09-10-2024 Hemoglobin (Bld) [Mass/Vol] 13.4 g/dL 12.0-15.0 [facility] Immature granulocytes/100 WB C Auto (Bld)Ordered By: Safia Ruelas on 09-10-2024 Immature granulocytes/100 WBC (Bld) 0.800 % 0.0-0.9 [facility] Comment on above: IG% - Immature Granu locytes (promyelocytes, myelocytes and metamyelocytes) > 1% indicates that a LEFT SHIFT is Present. Laboratory - Chemistry and C hemistry - challengeOrdered By: Safia Ruelas on 09-10-2024 AST [Catalytic activity/Vol] 21 U/L <32 [facility] MCV (mean corpuscular volume ) determinationOrdered By: Safia Ruelas on 09-10-2024 MCV (RBC) [Entitic vol] 92.5 fL 81-99 [facility] Mean corpuscular hemoglobin (MCH) determinationOrdered By: Safia Ruelas on 09-10-2024 MCH (RBC) [Entitic mass] 29.6 pg 27.0-32.0 [facility] Mean corpuscular hemoglobin concentration (MCHC) determinationOrdered By: Safia Ruelas on 09-10-2024 MCHC (RBC) [Mass/Vol] 32.1 g/dL 32-36 [facility] Mean platelet volume determi nationOrdered By: Safia Ruelas on 09-10-2024 Platelet mean volume (Bld) [Entitic vol] 12.6 fL High 6.2-12.0 [facility] Monocyte percentageOrdered B y: Safia Ruelas on 09-10-2024 Monocytes/100 WBC (Bld) 12.3 % High 0-10 [facility] Neutrophil percentageOrdered By: Safia Ruelas on 09-10-2024 Neutrophils/100 WBC (Bld) 68.2 % 47-70 [facility] No Panel InformationOrdered By: Safia Ruelas on 09-10-2024 21 U/L <32 [facility] Nucleated red blood cell per centageOrdered By: Safia Ruelas on 09-10-2024 Nucleated RBC/100 WBC (Bld) [Ratio] 0 % 0-5 [facility] Platelet countOrdered By: Balbir Ruelas on 09-10-2024 Platelets (Bld) [#/Vol] 190 10*3/uL 150-450 [facility] Potassium measurement (mass/ volume)Ordered By: Safia Ruelas on 09-10-2024 Potassium (Unsp spec) [Mass/Vol] 4.3 mmol/L 3.3-5.1 [facility] RBC Auto (Bld) [#/Vol]Ordere d By: Safia Ruelas on 09-10-2024 RBC (Bld) [#/Vol] 4.52 10*6/uL 4.2-5.4 [facility] Serum creatinine measurement (mass/volume)Ordered By: Safia Ruelas on 09-10-2024 Creatinine [Mass/Vol] 0.98 mg/dL 0.70-1.20 [facility] Serum globulin measurementOr dered By: Safia Ruelas on 09-10-2024 Globulin (S) [Mass/Vol] 3.3 g/dL 2.2-4.2 [facility] Serum glucose measurement (m ass/volume)Ordered By: Safia Ruelas on 09-10-2024 Glucose [Mass/Vol] 181 mg/dL High 70-99 [facility] Serum or plasma alanine raymundo otransferase (ALT) measurementOrdered By: Safia Ruelas on 09-10-2024 ALT [Catalytic activity/Vol] 26 U/L <35 [facility] Serum or plasma albumin dayna urement (mass/volume)Ordered By: Safia Ruelas on 09-10-2024 Albumin [Mass/Vol] 3.4 g/dL 3.4-4.8 [facility] Serum or plasma albumin/glob ulin mass ratioOrdered By: Safia Ruelas on 09-10-2024 Albumin/Globulin [Mass ratio] 1.0 {ratio} 0.9-2.4 [facility] Serum or plasma alkaline hannah sphatase measurementOrdered By: Safia Ruelas on 09-10-2024 ALP [Catalytic activity/Vol] 114 U/L High 35-104 [facility] Serum or plasma calcium dayna urement (mass/volume)Ordered By: Safia Ruelas on 09-10-2024 Calcium [Mass/Vol] 9.3 mg/dL 7.6-11.0 [facility] Serum or plasma urea nitroge n measurement (mass/volume)Ordered By: Safia Ruelas on 09-10-2024 Urea nitrogen [Mass/Vol] 29 mg/dL High 4-19 [facility] Sodium levelOrdered By: eLonides Ruelas on 09-10-2024 Sodium [Moles/Vol] 133 mmol/L 133-145 [facility] Total proteinOrdered By: Augusto Ruelas on 09-10-2024 Protein [Mass/Vol] 6.7 g/dL 5.9-8.4 [facility] White blood cell (WBC) count Ordered By: Safia Ruelas on 09-10-2024 WBC (Bld) [#/Vol] 11.8 10*3/uL High 4.4-11.0 [facility] LABORATORYOrdered By: Abigail Smith on 09-09-2024 Glucose [Mass/Vol] 212 mg/dL High 82 - 115 mg/dL [employer] Work Phone: Glucose [Mass/Vol] 226 mg/dL High 82 - 115 mg/dL [employer] Work Phone: LABORATORYOrdered By: Zoila Zarco on 09-08-2024 Glucose [Mass/Vol] 149 mg/dL High 82 - 115 mg/dL [employer] Work Phone: LABORATORYOrdered By: Rob Palmer on 09-08-2024 Blood Glucose Testing Reason Routine (09/08/24 6:16 PM) [employer] Work Phone: Blood Glucose Testing Reason Routine (09/08/24 11:58 AM) [employer] Work Phone: LABORATORYOrdered By: Rob Palmer on 09-07-2024 Blood Glucose Testing Reason Routine (09/07/24 4:46 PM) [employer] Work Phone: .Auto Diffon 09-03-2024 Basophil, Absolute 0.1 10 3/mcL Normal 0.0-0.3 [facility] Comment on above: Performed By: #### A DIFF, CBC, ANEU, GFR, BMP #### [address] [address] Basophils/100 WBC (Bld) 1.0 % Normal 0.0-2.5 [facility] Comment on above: Performed By: #### A DIFF, CBC, ANEU, GFR, BMP #### [address] [address] Eosinophil, Absolute 0.2 10 3/mcL Normal 0.0-0.7 [facility] Comment on above: Performed By: #### A DIFF, CBC, ANEU, GFR, BMP #### [address] [address] Eosinophils/100 WBC (Bld) 3.2 % Normal 0.0-6.0 [facility] Comment on above: Performed By: #### A DIFF, CBC, ANEU, GFR, BMP #### [address] [address] Lymphocyte, Absolute 2.0 10 3/mcL Normal 0.9-4.3 [facility] Comment on above: Performed By: #### A DIFF, CBC, ANEU, GFR, BMP #### [address] [address] Lymphocytes/100 WBC (Bld) 26.6 % Normal 20.0-40.0 [facility] Comment on above: Performed By: #### A DIFF, CBC, ANEU, GFR, BMP #### [address] [address] Monocyte, Absolute 0.7 10 3/mcL Normal 0.1-1.4 [facility] Comment on above: Performed By: #### A DIFF, CBC, ANEU, GFR, BMP #### [address] [address] Monocytes/100 WBC (Bld) 9.7 % Normal 2.0-13.0 [facility] Comment on above: Performed By: #### A DIFF, CBC, ANEU, GFR, BMP #### [address] [address] Neutrophils/100 WBC (Bld) 59.5 % Normal 50.0-75.0 [facility] Comment on above: Performed By: #### A DIFF, CBC, ANEU, GFR, BMP #### [address] [address] .GFRon 09-03-2024 Estimated Glomerular Filtration Rate 57 ml/min/1.73sqm Normal [facility] Comment on above: Result Comment: Stages [...] A DIFF, CBC, ANEU, GFR, BMP #### [address] [address] .NEUABSon 09-03-2024 Neutrophil, Absolute 4.5 10 3/mcL Normal 2.3-8.1 [facility] Comment on above: Performed By: #### A DIFF, CBC, ANEU, GFR, BMP #### [address] [address] B12on 09-03-2024 Cobalamin (Vitamin B12) [Mass/Vol] 834 pg/mL Normal 211-911 [facility] Comment on above: Performed By: #### A DIFF, CBC, ANEU, GFR, BMP #### [address] [address] CBCon 09-03-2024 Erythrocyte distribution width (RBC) [Ratio] 14.7 % Normal 11.5-15.5 [facility] Comment on above: Performed By: #### A DIFF, CBC, ANEU, GFR, BMP #### [address] [address] Hematocrit (Bld) [Volume fraction] 39.7 % Normal 34.0-46.0 [facility] Comment on above: Performed By: #### A DIFF, CBC, ANEU, GFR, BMP #### [address] [address] Hgb 13.2 G/dL Normal 12.0-16.0 [facility] Comment on above: Performed By: #### A DIFF, CBC, ANEU, GFR, BMP #### [address] [address] MCH (RBC) [Entitic mass] 30.6 pg Normal 27.0-33.0 [facility] Comment on above: Performed By: #### A DIFF, CBC, ANEU, GFR, BMP #### [place] [address] MCHC 33.3 G/dL Normal 32.0-36.0 [facility] Comment on above: Performed By: #### A DIFF, CBC, ANEU, GFR, BMP #### [place] [id number] MCV (RBC) [Entitic vol] 91.9 fL Normal 80.0-99.0 [facility] Comment on above: Performed By: #### A DIFF, CBC, ANEU, GFR, BMP #### [place] [id number] Platelet 228 10 3/mcL Normal 150-450 [facility] Comment on above: Performed By: #### A DIFF, CBC, ANEU, GFR, BMP #### [place] [id number] Platelet mean volume (Bld) [Entitic vol] 10.1 fL Normal 6.6-10.5 [facility] Comment on above: Performed By: #### A DIFF, CBC, ANEU, GFR, BMP #### [place] [id number] RBC 4.32 10 6/mcL Normal 4.10-5.30 [facility] Comment on above: Performed By: #### A DIFF, CBC, ANEU, GFR, BMP #### [place] [id number] WBC 7.6 10 3/mcL Normal 4.5-10.8 [facility] Comment on above: Performed By: #### A DIFF, CBC, ANEU, GFR, BMP #### [address] [address] CMPon 09-03-2024 Albumin Level 3.0 G/dL Low 3.2-4.8 [facility] Comment on above: Performed By: #### A DIFF, CBC, ANEU, GFR, BMP #### [place] [address] Albumin/Globulin [Mass ratio] 0.9 {ratio} Normal 0.9-1.6 [facility] Comment on above: Performed By: #### A DIFF, CBC, ANEU, GFR, BMP #### [place] [address] ALP [Catalytic activity/Vol] 115 U/L Normal 38-126 [facility] Comment on above: Performed By: #### A DIFF, CBC, ANEU, GFR, BMP #### [place] [address] ALT [Catalytic activity/Vol] 37 U/L Normal 10-49 [facility] Comment on above: Performed By: #### A DIFF, CBC, ANEU, GFR, BMP #### [place] [id number] AST [Catalytic activity/Vol] 31 U/L Normal 8-34 [facility] Comment on above: Performed By: #### A DIFF, CBC, ANEU, GFR, BMP #### [place] [address] Bili Total 0.50 mg/dL Normal 0.20-1.20 [facility] Comment on above: Result Comment: Use of this assay is not recommended for patients undergoing treatment with eltrombopag due to the potential for falsely elevated results. Performed By: #### A DIFF, CBC, ANEU, GFR, BMP #### [place] [address] BUN/Creatinine Ratio 29.7 ratio High 10.0-22.0 [facility] Comment on above: Performed By: #### A DIFF, CBC, ANEU, GFR, BMP #### [address] [address] Calcium [Mass/Vol] 9.6 mg/dL Normal 8.7-10.4 [facility] Comment on above: Performed By: #### A DIFF, CBC, ANEU, GFR, BMP #### [address] [address] Chloride [Moles/Vol] 101 mmol/L Normal 98-110 [facility] Comment on above: Performed By: #### A DIFF, CBC, ANEU, GFR, BMP #### [address] [address] CO2 [Moles/Vol] 27 mmol/L Normal 22-32 [facility] Comment on above: Performed By: #### A DIFF, CBC, ANEU, GFR, BMP #### [address] [address] Creatinine [Mass/Vol] 1.01 mg/dL Normal 0.50-1.20 [facility] Comment on above: Result Comment: Test ing performed on Synedgen analyzer using enzymatic creatinine methodology. Performed By: #### A DIFF, CBC, ANEU, GFR, BMP #### [address] [address] Electrolyte Balance 10.0 mEq/L Normal 4.0-15.[address] [facility] Comment on above: Performed By: #### A DIFF, CBC, ANEU, GFR, BMP #### [address] [address] Globulin 3.4 G/dL Normal 1.5-3.8 [facility] Comment on above: Performed By: #### A DIFF, CBC, ANEU, GFR, BMP #### [address] [address] Glucose [Mass/Vol] 187 mg/dL High 82-115 [facility] Comment on above: Performed By: #### A DIFF, CBC, ANEU, GFR, BMP #### [address] [address] Potassium [Moles/Vol] 4.6 mmol/L Normal 3.5-5.0 [facility] Comment on above: Performed By: #### A DIFF, CBC, ANEU, GFR, BMP #### [facility] [address] [place] [address] Sodium [Moles/Vol] 138 mmol/L Normal 136-145 [facility] Comment on above: Performed By: #### A DIFF, CBC, ANEU, GFR, BMP #### [address] [address] Total Protein 6.4 G/dL Normal 5.7-8.2 [facility] Comment on above: Performed By: #### A DIFF, CBC, ANEU, GFR, BMP #### [address] [address] Urea nitrogen [Mass/Vol] 30.0 mg/dL High 8.0-22.0 [facility] Comment on above: Performed By: #### A DIFF, CBC, ANEU, GFR, BMP #### [address] [address] LABORATORYOrdered By: Ann Carrillo on 09-03-2024 Glucose [Mass/Vol] 270 mg/dL [facility] Work Phone: LABORATORYOrdered By: SYSTEM SYSTEM on [...] above: Interpretive Data: T esting performed on Synedgen analyzer using enzymatic creatinine methodology. Electrolyte Balance [...] TSHon 09-03-2024 TSH 3.920 mIU/mL Normal 0.550-4.780 [facility] Comment on above: Performed By: #### A DIFF, CBC, ANEU, GFR, BMP #### [facility] [address] [place] [address] CT HEAD OR BRAIN W/O CONTRAS Ton [...] 09/02/2024 3:10:44 PM Ordering Provider: SILVINO HA [facility] [place] 08-30-2024 RANDEE Telephone (FAMPWS) LINDSAY ACUNA ([id number]) 1945 F Date Time Provider Department 08/30/24 KAMERON CARUSO During your visit today, we recorded the following information about you: Jaiden Paulino RN 08/30/2024 9:11 AM Signed Marya- [facility] reports patient was in [facility] with dx: stroke, and transferred to [facility]. Pt will be discharged from [facility] on 09/07/24 to home with [facility] SN PT OT [facility]. Asking if pcp agreeable to follow for [facility]. Please phone Marya with verbal: [phone] Mj Glover APRN.GARRETT 08/30/2024 9:19 AM Signed Please let know that Dr. Caruso's team will follow orders. Okay to proceed. Mj Glover APRN.Fouzia Reynoso LPN 08/30/2024 10:09 AM Signed Marya with [facility] notified. Allergies As of Date: 08/30/2024 Noted Allergy Reaction BENZOCAINE 07/08/2005 2 - Rash COCAINE 05/28/2008 Comments: Inverted T PERFUMES 07/08/2005 12 - Shortness of Breath Comments: coughes and chokes SULFA (SULFONAMIDE ANTIBIOTICS) 07/08/2005 5 - Intolerance Date Reviewed: 06/26/2024 Reviewed by: Bret Arambula LPN - Fully Assessed Reason for Visit: [facility] requesting verbal agree to follow [Other] Prescriptions [...] Status:Closed by FOUZIA MILLER on 08/30/24 Normal [facility] .Auto Diffon 08-26-2024 Basophil, Absolute 0.1 10 3/mcL Normal 0.0-0.3 [facility] Comment on above: Performed By: #### A DIFF, CBC, ANEU, GFR, BMP #### [address] [address] Basophils/100 WBC (Bld) 1.0 % Normal 0.0-2.5 [facility] Comment on above: Performed By: #### A DIFF, CBC, ANEU, GFR, BMP #### [address] [address] Eosinophil, Absolute 0.3 10 3/mcL Normal 0.0-0.7 [facility] Comment on above: Performed By: #### A DIFF, CBC, ANEU, GFR, BMP #### [address] [address] Eosinophils/100 WBC (Bld) 4.2 % Normal 0.0-6.0 [facility] Comment on above: Performed By: #### A DIFF, CBC, ANEU, GFR, BMP #### [address] [address] Lymphocyte, Absolute 2.2 10 3/mcL Normal 0.9-4.3 [facility] Comment on above: Performed By: #### A DIFF, CBC, ANEU, GFR, BMP #### [address] [address] Lymphocytes/100 WBC (Bld) 26.3 % Normal 20.0-40.0 [facility] Comment on above: Performed By: #### A DIFF, CBC, ANEU, GFR, BMP #### [address] [address] Monocyte, Absolute 0.9 10 3/mcL Normal 0.1-1.4 [facility] Comment on above: Performed By: #### A DIFF, CBC, ANEU, GFR, BMP #### [address] [address] Monocytes/100 WBC (Bld) 11.4 % Normal 2.0-13.0 [facility] Comment on above: Performed By: #### A DIFF, CBC, ANEU, GFR, BMP #### [address] [address] Neutrophils/100 WBC (Bld) 57.1 % Normal 50.0-75.0 [facility] Comment on above: Performed By: #### A DIFF, CBC, ANEU, GFR, BMP #### [address] [address] .GFRon 08-26-2024 Estimated Glomerular Filtration Rate 59 ml/min/1.73sqm Normal [facility] Comment on above: Result Comment: Stages [...] A DIFF, CBC, ANEU, GFR, BMP #### [address] [address] .NEUABSon 08-26-2024 Neutrophil, Absolute 4.7 10 3/mcL Normal 2.3-8.1 [facility] Comment on above: Performed By: #### A DIFF, CBC, ANEU, GFR, BMP #### [address] [address] BMPon 08-26-2024 BUN/Creatinine Ratio 35.1 ratio High 10.0-22.0 [facility] Comment on above: Performed By: #### A DIFF, CBC, ANEU, GFR, BMP #### [address] [address] Calcium [Mass/Vol] 9.8 mg/dL Normal 8.7-10.4 [facility] Comment on above: Performed By: #### A DIFF, CBC, ANEU, GFR, BMP #### [address] [address] Chloride [Moles/Vol] 98 mmol/L Normal 98-110 [facility] Comment on above: Performed By: #### A DIFF, CBC, ANEU, GFR, BMP #### [address] [address] CO2 [Moles/Vol] 25 mmol/L Normal 22-32 [facility] Comment on above: Performed By: #### A DIFF, CBC, ANEU, GFR, BMP #### [address] [address] Creatinine [Mass/Vol] 0.97 mg/dL Normal 0.50-1.20 [facility] Comment on above: Result Comment: Test ing performed on Synedgen analyzer using enzymatic creatinine methodology. Performed By: #### A DIFF, CBC, ANEU, GFR, BMP #### [place] [id number] Electrolyte Balance 12.0 mEq/L Normal 4.0-15.[address] [facility] Comment on above: Performed By: #### A DIFF, CBC, ANEU, GFR, BMP #### [place] [id number] Glucose [Mass/Vol] 160 mg/dL High 82-115 [facility] MA[facility] Comment on above: Performed By: #### A DIFF, CBC, ANEU, GFR, BMP #### [address] [address] Potassium [Moles/Vol] 4.7 mmol/L Normal 3.5-5.0 [facility] Comment on above: Result Comment: Spec imen slightly hemolyzed. Performed By: #### A DIFF, CBC, ANEU, GFR, BMP #### [place] [id number] Sodium [Moles/Vol] 135 mmol/L Low 136-145 [facility] Comment on above: Performed By: #### A DIFF, CBC, ANEU, GFR, BMP #### [place] [id number] Urea nitrogen [Mass/Vol] 34.0 mg/dL High 8.0-22.0 [facility] Comment on above: Performed By: #### A DIFF, CBC, ANEU, GFR, BMP #### [address] [address] CBCon 08-26-2024 Erythrocyte distribution width (RBC) [Ratio] 14.0 % Normal 11.5-15.5 [facility] Comment on above: Performed By: #### A DIFF, CBC, ANEU, GFR, BMP #### [place] [id number] Hematocrit (Bld) [Volume fraction] 41.0 % Normal 34.0-46.0 [facility] Comment on above: Performed By: #### A DIFF, CBC, ANEU, GFR, BMP #### [place] [address] Hgb 13.4 G/dL Normal 12.0-16.0 [facility] Comment on above: Performed By: #### A DIFF, CBC, ANEU, GFR, BMP #### [place] [address] MCH (RBC) [Entitic mass] 30.0 pg Normal 27.0-33.0 [facility] Comment on above: Performed By: #### A DIFF, CBC, ANEU, GFR, BMP #### [place] [address] MCHC 32.7 G/dL Normal 32.0-36.0 [facility] Comment on above: Performed By: #### A DIFF, CBC, ANEU, GFR, BMP #### [place] [address] MCV (RBC) [Entitic vol] 91.9 fL Normal 80.0-99.0 [facility] Comment on above: Performed By: #### A DIFF, CBC, ANEU, GFR, BMP #### [place] [id number] Platelet 297 10 3/mcL Normal 150-450 [facility] Comment on above: Performed By: #### A DIFF, CBC, ANEU, GFR, BMP #### [place] [id number] Platelet mean volume (Bld) [Entitic vol] 11.0 fL High 6.6-10.5 [facility] Comment on above: Performed By: #### A DIFF, CBC, ANEU, GFR, BMP #### [address] [address] RBC 4.46 10 6/mcL Normal 4.10-5.30 [facility] Comment on above: Performed By: #### A DIFF, CBC, ANEU, GFR, BMP #### [place] [address] [place] [address] WBC 8.3 10 3/mcL Normal 4.5-10.8 [facility] Comment on above: Performed By: #### A DIFF, CBC, ANEU, GFR, BMP #### [place] [address] [place] [address] LABORATORYOrdered By: SYSTEM SYSTEM on 08-26-2024 Basophils [...] above: Interpretive Data: T esting performed on [employer] CH analyzer using enzymatic creatinine methodology. Electrolyte [...] 160 mg/dL High 82 - 115 mg/dL AH ADM SS Hematocrit (Bld) [Volume fraction] 41.0 [...] [facility] AND WRIST 6 [...] 08/25/2024 2:27:26 PM Ordering Provider: JACKLYN LINDSEY [facility] MAIN XR HUMERUS MINIMUM 2 VIEWS L [facility] 08-25-2024 XR HUMERUS MINIMUM 2 VIEWS LEFT [...] Sign Date: 08/25/2024 2:26:11 PM Ordering Provider: [facility] MAIN XR SHOULDER MINIMUM 2 VIEWS LEFTon [...] Sign Date: 08/25/2024 2:26:45 PM Ordering Provider: [facility] MAIN LABORATORYOrdered By: Kala lux on 08-23-2024 Glucose [Mass/Vol] 278 mg/dL [facility] Work Phone: LABORATORYOrdered By: Kala lux on 08-22-2024 Glucose [Mass/Vol] 320 mg/dL [facility] Work Phone: A1Con 08-21-2024 Glucose [Mass/Vol] 194 mg/dL [facility] MAIN Comment on above: Result Comment: Nancy mated Average Glucose calculated by equation ((28.7xA1C)-46.7) Estimated average glucose (eAG) is a calculated value from Hemoglobin A1C and is merchandiser retail representative of the average blood glucose level in the last 2-3 month period. Normal range: less than 114 mg/dL Performed By: #### A 1C #### [address] [address] HbA1c (Bld) [Mass fraction] 8.4 % High 4.0-6.0 [facility] Comment on above: Performed By: #### A 1C #### [address] [address] LABORATORYOrdered By: SYSTEM SYSTEM on 08-21-2024 Glucose [Mass/Vol] 194 mg/dL Invalid Interpretation Code AH Auto Chem SS Comment on above: Interpretive Data: E stimated average glucose (eAG) is a calculated value from Hemoglobin A1C and is merchandiser retail representative of the average blood glucose level in the last 2-3 month period. Normal range: less than 114 mg/dL HbA1c (Bld) [Mass fraction] 8.4 % High 4.0 - 6.0 % Auto Chem SS .Auto Diffon 08-20-2024 Basophil, Absolute 0.1 10 3/mcL Normal 0.0-0.3 [facility] Comment on above: Performed By: #### B MP, ADIFF, CBC, GFR, ANEU #### [address] [address] Basophils/100 WBC (Bld) 1.1 % Normal 0.0-2.5 [facility] Comment on above: Performed By: #### B MP, ADIFF, CBC, GFR, ANEU #### [address] [address] Eosinophil, Absolute 0.3 10 3/mcL Normal 0.0-0.7 [facility] Comment on above: Performed By: #### B MP, ADIFF, CBC, GFR, ANEU #### [address] [address] Eosinophils/100 WBC (Bld) 3.6 % Normal 0.0-6.0 [facility] Comment on above: Performed By: #### B MP, ADIFF, CBC, GFR, ANEU #### [address] [address] Lymphocyte, Absolute 1.7 10 3/mcL Normal 0.9-4.3 [facility]IN Comment on above: Performed By: #### B MP, ADIFF, CBC, GFR, ANEU #### [address] [address] Lymphocytes/100 WBC (Bld) 20.8 % Normal 20.0-40.0 [facility] Comment on above: Performed By: #### B MP, ADIFF, CBC, GFR, ANEU #### [address] [address] Monocyte, Absolute 0.9 10 3/mcL Normal 0.1-1.4 [facility] Comment on above: Performed By: #### B MP, ADIFF, CBC, GFR, ANEU #### [address] [address] Monocytes/100 WBC (Bld) 11.4 % Normal 2.0-13.0 [facility] Comment on above: Performed By: #### B MP, ADIFF, CBC, GFR, ANEU #### [address] [address] Neutrophils/100 WBC (Bld) 63.1 % Normal 50.0-75.0 [facility] Comment on above: Performed By: #### B MP, ADIFF, CBC, GFR, ANEU #### [address] [address] .GFRon 08-20-2024 Estimated Glomerular Filtration Rate 55 ml/min/1.73sqm Normal [facility] Comment on above: Result Comment: Stages [...] A DIFF, CBC, ANEU, GFR, BMP #### [address] [address] .NEUABSon 08-20-2024 Neutrophil, Absolute 5.1 10 3/mcL Normal 2.3-8.1 [facility] Comment on above: Performed By: #### B MP, ADIFF, CBC, GFR, ANEU #### [place] [address] BMPon 08-20-2024 BUN/Creatinine Ratio 29.8 ratio High 10.0-22.0 [facility] Comment on above: Performed By: #### B MP, ADIFF, CBC, GFR, ANEU #### [place] [address] Calcium [Mass/Vol] 9.8 mg/dL Normal 8.7-10.4 [facility] MAIN Comment on above: Performed By: #### B MP, ADIFF, CBC, GFR, ANEU #### [place] [address] Chloride [Moles/Vol] 95 mmol/L Low 98-110 [facility] MA[facility] Comment on above: Performed By: #### B MP, ADIFF, CBC, GFR, ANEU #### [place] [address] CO2 [Moles/Vol] 34 mmol/L High 22-32 [facility] Comment on above: Performed By: #### B MP, ADIFF, CBC, GFR, ANEU #### [place] [address] Creatinine [Mass/Vol] 1.04 mg/dL Normal 0.50-1.20 [facility] MAIN Comment on above: Result Comment: Test ing performed on Synedgen analyzer using enzymatic creatinine methodology. Performed By: #### B MP, ADIFF, CBC, GFR, ANEU #### [place] [address] Electrolyte Balance 5.0 mEq/L Normal 4.0-15.[address] [facility] MAIN Comment on above: Performed By: #### B MP, ADIFF, CBC, GFR, ANEU #### [address] [address] Glucose [Mass/Vol] 244 mg/dL High 82-115 [facility] MAIN Comment on above: Performed By: #### B MP, ADIFF, CBC, GFR, ANEU #### [place] [id number] Potassium [Moles/Vol] 4.8 mmol/L Normal 3.5-5.0 [facility] MA[facility] Comment on above: Result Comment: Spec imen slightly hemolyzed. Performed By: #### B MP, ADIFF, CBC, GFR, ANEU #### [place] [id number] Sodium [Moles/Vol] 134 mmol/L Low 136-145 [facility] MAIN Comment on above: Performed By: #### B MP, ADIFF, CBC, GFR, ANEU #### [place] [id number] Urea nitrogen [Mass/Vol] 31.0 mg/dL High 8.0-22.0 [facility] Comment on above: Performed By: #### B MP, ADIFF, CBC, GFR, ANEU #### [place] [id number] CBCon 08-20-2024 Erythrocyte distribution width (RBC) [Ratio] 14.0 % Normal 11.5-15.5 [facility] Comment on above: Performed By: #### B MP, ADIFF, CBC, GFR, ANEU #### [place] [id number] Hematocrit (Bld) [Volume fraction] 41.9 % Normal 34.0-46.0 [facility] Comment on above: Performed By: #### B MP, ADIFF, CBC, GFR, ANEU #### [place] [id number] Hgb 13.6 G/dL Normal 12.0-16.0 [facility] Comment on above: Performed By: #### B MP, ADIFF, CBC, GFR, ANEU #### [place] [id number] MCH (RBC) [Entitic mass] 29.7 pg Normal 27.0-33.0 [facility] Comment on above: Performed By: #### B MP, ADIFF, CBC, GFR, ANEU #### [place] [address] MCHC 32.4 G/dL Normal 32.0-36.0 [facility] Comment on above: Performed By: #### B MP, ADIFF, CBC, GFR, ANEU #### [place] [address] MCV (RBC) [Entitic vol] 91.5 fL Normal 80.0-99.0 [facility] Comment on above: Performed By: #### B MP, ADIFF, CBC, GFR, ANEU #### [place] [address] Platelet 301 10 3/mcL Normal 150-450 [facility] Comment on above: Performed By: #### B MP, ADIFF, CBC, GFR, ANEU #### [place] [address] Platelet mean volume (Bld) [Entitic vol] 11.0 fL High 6.6-10.5 [facility] Comment on above: Performed By: #### B MP, ADIFF, CBC, GFR, ANEU #### [place] [address] RBC 4.58 10 6/mcL Normal 4.10-5.30 [facility] Comment on above: Performed By: #### B MP, ADIFF, CBC, GFR, ANEU #### [place] [address] WBC 8.1 10 3/mcL Normal 4.5-10.8 [facility] Comment on above: Performed By: #### B MP, ADIFF, CBC, GFR, ANEU #### [place] [address] LABORATORYOrdered By: SYSTEM SYSTEM on 08-20-2024 Basophils [...] above: Interpretive Data: T esting performed on Synedgen analyzer using enzymatic creatinine methodology. Electrolyte Balance [...] 41.9 % Normal 34.0 - 46.0 % Workflow SS Hemoglobin (Bld) [Mass/Vol] 13.6 G/dL Normal 12.0 - 16.0 G/dL Workflow SS Lymphocytes (Bld) [#/Vol] 1.7 103/mcL [...] 8.1 103/mcL Normal 4.5 - 10.8 10^3/mcL AH Workflow SS XR CHEST 1 VIEWon 08-18-2024 [...] 08/18/2024 3:14:15 PM Ordering Provider: NANDO Anderson [facility] .Auto Diffon 08-16-2024 Basophil, Absolute 0.1 10 3/mcL Normal 0.0-0.3 [facility] MA[facility] Comment on above: Performed By: #### A DIFF, CBC, ANEU, GFR, BMP #### [address] [address] Basophils/100 WBC (Bld) 0.7 % Normal 0.0-2.5 [facility] Comment on above: Performed By: #### A DIFF, CBC, ANEU, GFR, BMP #### [address] [address] Eosinophil, Absolute 0.3 10 3/mcL Normal 0.0-0.7 [facility] MAIN Comment on above: Performed By: #### A DIFF, CBC, ANEU, GFR, BMP #### [address] [address] Eosinophils/100 WBC (Bld) 2.1 % Normal 0.0-6.0 [facility] Comment on above: Performed By: #### A DIFF, CBC, ANEU, GFR, BMP #### [address] [address] Lymphocyte, Absolute 1.9 10 3/mcL Normal 0.9-4.3 [facility] Comment on above: Performed By: #### A DIFF, CBC, ANEU, GFR, BMP #### [address] [address] Lymphocytes/100 WBC (Bld) 14.8 % Low 20.0-40.0 [facility] Comment on above: Performed By: #### A DIFF, CBC, ANEU, GFR, BMP #### [address] [address] Monocyte, Absolute 1.2 10 3/mcL Normal 0.1-1.4 [facility] Comment on above: Performed By: #### A DIFF, CBC, ANEU, GFR, BMP #### [address] [address] Monocytes/100 WBC (Bld) 9.8 % Normal 2.0-13.0 [facility] Comment on above: Performed By: #### A DIFF, CBC, ANEU, GFR, BMP #### [address] [address] Neutrophils/100 WBC (Bld) 72.6 % Normal 50.0-75.0 [facility] Comment on above: Performed By: #### A DIFF, CBC, ANEU, GFR, BMP #### [address] [address] .GFRon 08-16-2024 Estimated Glomerular Filtration Rate 58 ml/min/1.73sqm Normal [facility] Comment on above: Result Comment: Stages [...] A DIFF, CBC, ANEU, GFR, BMP #### [address] [address] .NEUABSon 08-16-2024 Neutrophil, Absolute 9.2 10 3/mcL High 2.3-8.1 [facility] Comment on above: Performed By: #### A DIFF, CBC, ANEU, GFR, BMP #### [address] [address] [facility] BUN/Creatinine Ratio 34.3 ratio High 10.0-22.0 [facility] Comment on above: Performed By: #### A DIFF, CBC, ANEU, GFR, BMP #### [address] [address] Calcium [Mass/Vol] 9.0 mg/dL Normal 8.7-10.4 [facility] MAIN Comment on above: Performed By: #### A DIFF, CBC, ANEU, GFR, BMP #### [address] [address] Chloride [Moles/Vol] 100 mmol/L Normal 98-110 [facility] MA[facility] Comment on above: Performed By: #### A DIFF, CBC, ANEU, GFR, BMP #### [address] [address] CO2 [Moles/Vol] 30 mmol/L Normal 22-32 [facility] Comment on above: Performed By: #### A DIFF, CBC, ANEU, GFR, BMP #### [address] [address] Creatinine [Mass/Vol] 0.99 mg/dL Normal 0.50-1.20 [facility] MAIN Comment on above: Result Comment: Test ing performed on Synedgen analyzer using enzymatic creatinine methodology. Performed By: #### A DIFF, CBC, ANEU, GFR, BMP #### [address] [address] Electrolyte Balance 5.0 mEq/L Normal 4.0-15.[address] [facility] MAIN Comment on above: Performed By: #### A DIFF, CBC, ANEU, GFR, BMP #### [address] [address] Glucose [Mass/Vol] 259 mg/dL High 82-115 [facility] MAIN Comment on above: Performed By: #### A DIFF, CBC, ANEU, GFR, BMP #### [place] [id number] Potassium [Moles/Vol] 5.0 mmol/L Normal 3.5-5.0 [facility] Comment on above: Performed By: #### A DIFF, CBC, ANEU, GFR, BMP #### [place] [address] Sodium [Moles/Vol] 135 mmol/L Low 136-145 [facility] MAIN Comment on above: Performed By: #### A DIFF, CBC, ANEU, GFR, BMP #### [place] [address] Urea nitrogen [Mass/Vol] 34.0 mg/dL High 8.0-22.0 [facility] Comment on above: Performed By: #### A DIFF, CBC, ANEU, GFR, BMP #### [place] [address] CBCon 08-16-2024 Erythrocyte distribution width (RBC) [Ratio] 13.7 % Normal 11.5-15.5 [facility] Comment on above: Performed By: #### A DIFF, CBC, ANEU, GFR, BMP #### [place] [address] Hematocrit (Bld) [Volume fraction] 43.3 % Normal 34.0-46.0 [facility] Comment on above: Performed By: #### A DIFF, CBC, ANEU, GFR, BMP #### [place] [address] Hgb 13.9 G/dL Normal 12.0-16.0 [facility] Comment on above: Performed By: #### A DIFF, CBC, ANEU, GFR, BMP #### [place] [address] MCH (RBC) [Entitic mass] 30.0 pg Normal 27.0-33.0 [facility] Comment on above: Performed By: #### A DIFF, CBC, ANEU, GFR, BMP #### [place] [address] MCHC 32.1 G/dL Normal 32.0-36.0 [facility] Comment on above: Performed By: #### A DIFF, CBC, ANEU, GFR, BMP #### [facility] [address] [place], [place] [address] MCV (RBC) [Entitic vol] 93.6 fL Normal 80.0-99.0 [facility] MAIN Comment on above: Performed By: #### A DIFF, CBC, ANEU, GFR, BMP #### [place] [address] [place] [address] Platelet 230 10 3/mcL Normal 150-450 [facility] Comment on above: Performed By: #### A DIFF, CBC, ANEU, GFR, BMP #### [place] [id number] [place] [address] Platelet mean volume (Bld) [Entitic vol] 10.7 fL High 6.6-10.5 [facility] Comment on above: Performed By: #### A DIFF, CBC, ANEU, GFR, BMP #### [place] [address] RBC 4.63 10 6/mcL Normal 4.10-5.30 [facility] Comment on above: Performed By: #### A DIFF, CBC, ANEU, GFR, BMP #### [place] [id number] WBC 12.7 10 3/mcL High 4.5-10.8 [facility] Comment on above: Performed By: #### A DIFF, CBC, ANEU, GFR, BMP #### [place] [address] LABORATORYOrdered By: Marily Panda on 08-16-2024 Blood Glucose Interventions Administered agent to decrease blood sugar (08/16/24 12:23 PM) [employer] Work Phone: Blood Glucose Interventions Retest (08/16/24 10:15 AM) [email or web address] Work Phone: Bacteria identified Cx Nom ( Bld)on 08-15-2024 Bacteria identified Cx Nom (Unsp spec) NO GROWTH DAY 5 OF [facility] CARDIAC RHYTHMon 08-15-2024 [facility] CBC,PLATELETSon 08-15-2024 Erythrocyte distribution width (RBC) [Ratio] 13.4 % 10.8 - 14.9 % [facility] Hematocrit (Bld) [Volume fraction] 43.8 % 34.9 - 44.3 % [facility] Hemoglobin (Bld) [Mass/Vol] 13.5 g/dL 11.4 - 15.2 g/dL [facility] Interpretation and review of laboratory results Abnormal [facility] MCH (RBC) [Entitic mass] 28.9 pg 25.9 - 33.9 pg [facility] MCHC (RBC) [Mass/Vol] 30.8 g/dL Low 31.4 - 35.9 g/dL [facility] MCV (RBC) [Entitic vol] 93.8 fL 79.6 - 97.7 fL [facility] Platelet mean volume (Bld) [Entitic vol] 12 fL 8.5 - 12.2 fL [facility] Platelets (Bld) [#/Vol] 252 10*3/uL 150 - 393 K/uL [facility] RBC (Bld) [#/Vol] 4.67 10*6/uL [facility] WBC (Bld) [#/Vol] 11.94 10*3/uL High 3.99 - 11.19 K/uL [facility] Hematocrit (Bld) [Volume fraction] 43.8 % Normal 34.9-44.3 [facility] Comment on above: Performed By: #### X M #### [facility] (DEFAULT) [address] [address] Hemoglobin (Bld) [Mass/Vol] 13.5 g/dL Normal 11.4-15.2 [facility] Comment on above: Performed By: #### X M #### [facility] (DEFAULT) [address] [address] MCV (RBC) [Entitic vol] 93.8 fL Normal 79.6-97.7 O [facility] Comment on above: Performed By: #### X M #### [facility] (DEFAULT) [address] [address] Mean Cell Hgb 28.9 pg Normal 25.9-33.9 [facility] Comment on above: Performed By: #### X M #### [facility] (DEFAULT) [address] [place] [address] Mean Cell Hgb Conc 30.8 g/dL Low 31.4-35.9 [facility] Comment on above: Performed By: #### X M #### [facility] (DEFAULT) [address] [place] [address] Platelet mean volume (Bld) [Entitic vol] 12.0 fL Normal 8.5-12.2 [facility] Comment on above: Performed By: #### X M #### [facility] (DEFAULT) [address] [address] Platelets (Bld) [#/Vol] 252 10*3/uL Normal 150-393 [facility] Comment on above: Performed By: #### X M #### [facility] (DEFAULT) [address] [place] [address] RBC (Bld) [#/Vol] 4.67 10*6/uL Normal 3.91-5.04 [facility] Comment on above: Performed By: #### X M #### [facility] (DEFAULT) [address] [address] RBC Distribution 13.4 % Normal 10.8-14.9 [facility] Comment on above: Performed By: #### X M #### [facility] (DEFAULT) [address] [address] WBC (Bld) [#/Vol] 11.94 10*3/uL High 3.99-11.19 [facility] Comment on above: Performed By: #### X M #### [facility] (DEFAULT) [address] [place] [address] CHEM 7 (LYTES,BUN,CREA,GLUC) on 08-15-2024 Anion gap [Moles/Vol] 16 mmol/L 7 - 17 mmol/L [facility] Chloride [Moles/Vol] 99 mmol/L 98 - 10 8 mmol/L [facility] CO2 [Moles/Vol] 25 mmol/L 21 - 31 mmol/L [facility] Creatinine [Mass/Vol] 1.27 mg/dL High 0.50 - 1.20 mg/dL [facility] eGFR, CKD-EPI, Female 43 Low - PINF [facility] Glucose [Mass/Vol] 214 mg/dL High 70 - 179 mg/dL [facility] Interpretation and review of laboratory results Abnormal [facility] Osmolality Calc [Osmolality] 306 High [facility] Potassium [Moles/Vol] 4.8 mmol/L 3.5 - 5.0 mmol/L [facility] Sodium [Moles/Vol] 135 mmol/L 135 - 145 mmol/L [facility] Urea nitrogen [Mass/Vol] 51 mg/dL High 7 - 25 mg/dL [facility] Urea nitrogen/Creatinine [Mass ratio] 40 mg/mg [facility] Anion gap [Moles/Vol] 16 mmol/L Normal 7-17 [facility] Comment on above: Performed By: #### H [facility] #### [facility] (DEFAULT) [address] [place] [address] Chloride [Moles/Vol] 99 mmol/L Normal 98-108 [facility] Comment on above: Performed By: #### H [facility] #### [facility] (DEFAULT) [address] [place] [address] CO2 [Moles/Vol] 25 mmol/L Normal 21-31 [facility] Comment on above: Performed By: #### H [facility] #### [facility] (DEFAULT) [address] [place] [address] Creatinine [Mass/Vol] 1.27 mg/dL High 0.50-1.20 [facility] Comment on above: Performed By: #### H [facility] #### [facility] (DEFAULT) [address] [place] [address] GFR/1.73 sq M.predicted among non-blacks MDRD (S/P/Bld) [Vol rate/Area] 43 mL/min/{1.73_m2} Low >=60 [facility] Comment on above: Result Comment: Repo rted eGFR is based on the CKD-EPI 2020 equation using creatinine, age, and sex. Performed By: #### H EMOGC #### [facility] (DEFAULT) [address] [place] [address] Glucose [Mass/Vol] 214 mg/dL High Nonfastin -179 mg/dL; Fastin-99 [facility] Comment on above: Performed By: #### H EMOGC #### [facility] (DEFAULT) [address] [place] [address] Osmolality [Osmolality] 306 mosm/kg High 278-305 [facility] Comment on above: Performed By: #### H EMOGC #### [facility] (DEFAULT) [address] [place] [address] Potassium [Moles/Vol] 4.8 mmol/L Normal 3.5-5.0 [facility] Comment on above: Performed By: #### H EMOGC #### [facility] (DEFAULT) [address] [place] [address] Sodium [Moles/Vol] 135 mmol/L Normal 135-145 [facility] Comment on above: Performed By: #### H EMOGC #### [facility] (DEFAULT) [address] [place] [address] Urea nitrogen [Mass/Vol] 51 mg/dL High 7-25 [facility] Comment on above: Performed By: #### H EMOGC #### [facility] (DEFAULT) [address] [place] [address] Urea nitrogen/Creatinine [Mass ratio] 40 mg/mg Normal [facility] Comment on above: Performed By: #### H [facility] #### [facility] (DEFAULT) [address] [place] [address] GLUCOSE POCon 08-15-2024 Glucose [Mass/Vol] 190 mg/dL High 70 - 179 mg/dL [facility] Interpretation and review of laboratory results Abnormal [facility] POC Sample Type [facility] Glucose [Mass/Vol] 146 mg/dL 70 - 179 mg/dL [facility] POC Sample Type CAPBL [facility] Glucose [Mass/Vol] 215 mg/dL High 70 - 179 mg/dL [facility] Interpretation and review of laboratory results Abnormal [facility] POC Sample Type CAPBL [facility] MAGNESIUMon 08-15-2024 Interpretation and review of laboratory results Normal [facility] Magnesium [Mass/Vol] 1.6 mg/dL 1.6 - 2 .6 mg/dL [facility] Magnesium [Mass/Vol] 1.6 mg/dL Normal 1.6-2.6 [facility] Comment on above: Performed By: #### H [facility] #### [facility] (DEFAULT) [address] [place], [place] [id number] No Panel Informationon 08-15 [facility] CBC,PLATELETSon 08-14-2024 Erythrocyte distribution width (RBC) [Ratio] 13.4 % 10.8 - 14.9 % [facility] Hematocrit (Bld) [Volume fraction] 47.9 % High 34.9 - 44.3 % [facility] Hemoglobin (Bld) [Mass/Vol] 14.3 g/dL 11.4 - 15.2 g/dL [facility] Interpretation and review of laboratory results Abnormal [facility] MCH (RBC) [Entitic mass] 29.3 pg 25.9 - 33.9 pg [facility] MCHC (RBC) [Mass/Vol] 29.9 g/dL Low 31.4 - 35.9 g/dL [facility] MCV (RBC) [Entitic vol] 98.2 fL High 79.6 - 97.7 fL [facility] Platelet mean volume (Bld) [Entitic vol] 11.3 fL 8.5 - 12.2 fL [facility] Platelets (Bld) [#/Vol] 229 10*3/uL 150 - 393 K/uL [facility] RBC (Bld) [#/Vol] 4.88 10*6/uL [facility] WBC (Bld) [#/Vol] 12.14 10*3/uL High 3.99 - 11.19 K/uL [facility] Hematocrit (Bld) [Volume fraction] 47.9 % High 34.9-44.3 [facility] Comment on above: Performed By: #### X M #### [facility] (DEFAULT) [address] [place] [address] Hemoglobin (Bld) [Mass/Vol] 14.3 g/dL Normal 11.4-15.2 [facility] Comment on above: Performed By: #### X M #### [facility] (DEFAULT) [address] [place] [address] MCV (RBC) [Entitic vol] 98.2 fL High 79.6-97.7 O [facility] Comment on above: Performed By: #### X M #### [facility] (DEFAULT) [address] [place] [address] Mean Cell Hgb 29.3 pg Normal 25.9-33.9 [facility] Comment on above: Performed By: #### X M #### [facility] (DEFAULT) [address] [place] [address] Mean Cell Hgb Conc 29.9 g/dL Low 31.4-35.9 [facility] Comment on above: Performed By: #### X M #### [facility] (DEFAULT) [address] [place] [address] Platelet mean volume (Bld) [Entitic vol] 11.3 fL Normal 8.5-12.2 [facility] Comment on above: Performed By: #### X M #### [facility] (DEFAULT) [address] [place] [address] Platelets (Bld) [#/Vol] 229 10*3/uL Normal 150-393 [facility] Comment on above: Performed By: #### X M #### [facility] (DEFAULT) [address] [place] [address] RBC (Bld) [#/Vol] 4.88 10*6/uL Normal 3.91-5.04 [facility] Comment on above: Performed By: #### X M #### [facility] (DEFAULT) [address] [place] [address] RBC Distribution 13.4 % Normal 10.8-14.9 [facility] Comment on above: Performed By: #### X M #### [facility] (DEFAULT) [address] [place] [address] WBC (Bld) [#/Vol] 12.14 10*3/uL High 3.99-11.19 [facility] Comment on above: Performed By: #### X M #### [facility] (DEFAULT) [address] [place] [address] CHEM 7 (LYTES,BUN,CREA,GLUC) on 08-14-2024 Anion gap [Moles/Vol] 16 mmol/L 7 - 17 mmol/L [facility] Chloride [Moles/Vol] 101 mmol/L 98 - 10 8 mmol/L [facility] CO2 [Moles/Vol] 23 mmol/L 21 - 31 mmol/L [facility] Creatinine [Mass/Vol] 1.15 mg/dL 0.50 - 1.20 mg/dL [facility] eGFR, CKD-EPI, Female 48 Low - PINF [facility] Glucose [Mass/Vol] 208 mg/dL High 70 - 179 mg/dL [facility] Interpretation and review of laboratory results Abnormal [facility] Osmolality Calc [Osmolality] 304 [facility] Potassium [Moles/Vol] 4.7 mmol/L 3.5 - 5.0 mmol/L [facility] Sodium [Moles/Vol] 135 mmol/L 135 - 145 mmol/L [facility] Urea nitrogen [Mass/Vol] 47 mg/dL High 7 - 25 mg/dL [facility] Urea nitrogen/Creatinine [Mass ratio] 41 mg/mg [facility] Anion gap [Moles/Vol] 16 mmol/L Normal 7-17 [facility] Comment on above: Performed By: #### B LDCULT #### [facility] (DEFAULT) [address] [place] [address] 9[address]18 Chloride [Moles/Vol] 101 mmol/L Normal 98-108 [facility] Comment on above: Performed By: #### B LDCULT #### [facility] (DEFAULT) [address] [place] [address] 50376 CO2 [Moles/Vol] 23 mmol/L Normal 21-31 [facility] Comment on above: Performed By: #### B LDCULT #### [facility] (DEFAULT) [address] [place] [address] 82593 Creatinine [Mass/Vol] 1.15 mg/dL Normal 0.50-1.20 [facility] Comment on above: Performed By: #### B LDCULT #### [facility] (DEFAULT) [address] [place] [address] 90513 GFR/1.73 sq M.predicted among non-blacks MDRD (S/P/Bld) [Vol rate/Area] 48 mL/min/{1.73_m2} Low >=60 [facility] Comment on above: Result Comment: Repo rted eGFR is based on the CKD-EPI 2020 equation using creatinine, age, and sex. Performed By: #### B LDCULT #### [facility] (DEFAULT) [address] [place] [address] 39160 Glucose [Mass/Vol] 208 mg/dL High Nonfastin -179 mg/dL; Fastin-99 [facility] Comment on above: Performed By: #### B LDCULT #### [facility] (DEFAULT) [address] [place] [address] 86668 Osmolality [Osmolality] 304 mosm/kg Normal 278-305 [facility] Comment on above: Performed By: #### B LDCULT #### [facility] (DEFAULT) [address] [place] [address] 72758 Potassium [Moles/Vol] 4.7 mmol/L Normal 3.5-5.0 [facility] Comment on above: Performed By: #### B LDCULT #### [facility] (DEFAULT) [address] [place] [address] 09171 Sodium [Moles/Vol] 135 mmol/L Normal 135-145 [facility] Comment on above: Performed By: #### B LDCULT #### [facility] (DEFAULT) [address] [place] [address] 08630 Urea nitrogen [Mass/Vol] 47 mg/dL High 7-25 [facility] Comment on above: Performed By: #### B LDCULT #### [facility] (DEFAULT) [address] [place] [address] 81349 Urea nitrogen/Creatinine [Mass ratio] 41 mg/mg Normal [facility] Comment on above: Performed By: #### B LDCULT #### [facility] (DEFAULT) [address] [place] [address] 68523 GLUCOSE POCon 08-14-2024 Glucose [Mass/Vol] 204 mg/dL High 70 - 179 mg/dL [facility] Interpretation and review of laboratory results Abnormal [facility] POC Sample Type CAPBL [facility] Glucose [Mass/Vol] 264 mg/dL High 70 - 179 mg/dL [facility] Interpretation and review of laboratory results Abnormal [facility] POC Sample Type CAPBL [facility] Glucose [Mass/Vol] 189 mg/dL High 70 - 179 mg/dL [facility] Interpretation and review of laboratory results Abnormal [facility] POC Sample Type CAPBL [facility] MAGNESIUMon 08-14-2024 Interpretation and review of laboratory results Normal [facility] Magnesium [Mass/Vol] 1.6 mg/dL 1.6 - 2 .6 mg/dL [facility] Magnesium [Mass/Vol] 1.6 mg/dL Normal 1.6-2.6 [facility] Comment on above: Performed By: #### B LDCULT #### [facility] (DEFAULT) [address] [place] [address] No Panel Informationon 08-14 [facility] CBC,PLATELETSon 08-13-2024 Erythrocyte distribution width (RBC) [Ratio] 13.4 % 10.8 - 14.9 % [facility] Hematocrit (Bld) [Volume fraction] 45.7 % High 34.9 - 44.3 % [facility] Hemoglobin (Bld) [Mass/Vol] 14.3 g/dL 11.4 - 15.2 g/dL [facility] Interpretation and review of laboratory results Abnormal [facility] MCH (RBC) [Entitic mass] 29.5 pg 25.9 - 33.9 pg [facility] MCHC (RBC) [Mass/Vol] 31.3 g/dL Low 31.4 - 35.9 g/dL [facility] MCV (RBC) [Entitic vol] 94.2 fL 79.6 - 97.7 fL [facility] Platelet mean volume (Bld) [Entitic vol] 11.7 fL 8.5 - 12.2 fL [facility] Platelets (Bld) [#/Vol] 245 10*3/uL 150 - 393 K/uL [facility] RBC (Bld) [#/Vol] 4.85 10*6/uL [facility] WBC (Bld) [#/Vol] 12.02 10*3/uL High 3.99 - 11.19 K/uL [facility] Hematocrit (Bld) [Volume fraction] 45.7 % High 34.9-44.3 [facility] Comment on above: Performed By: #### H EMO #### [facility] (DEFAULT) [address] [address] Hemoglobin (Bld) [Mass/Vol] 14.3 g/dL Normal 11.4-15.2 [facility] Comment on above: Performed By: #### H EMO #### [facility] (DEFAULT) [address] [address] MCV (RBC) [Entitic vol] 94.2 fL Normal 79.6-97.7 [facility] Comment on above: Performed By: #### H EMO #### [facility] (DEFAULT) [address] [address] Mean Cell Hgb 29.5 pg Normal 25.9-33.9 [facility] Comment on above: Performed By: #### H EMO #### [facility] (DEFAULT) [address] [address] Mean Cell Hgb Conc 31.3 g/dL Low 31.4-35.9 [facility] Comment on above: Performed By: #### H EMOGC #### [facility] (DEFAULT) [address] [address] Platelet mean volume (Bld) [Entitic vol] 11.7 fL Normal 8.5-12.2 [facility] Comment on above: Performed By: #### H EMO #### [facility] (DEFAULT) [address] [place] [address] Platelets (Bld) [#/Vol] 245 10*3/uL Normal 150-393 [facility] Comment on above: Performed By: #### H EMO #### [facility] (DEFAULT) [address] [place] [address] RBC (Bld) [#/Vol] 4.85 10*6/uL Normal 3.91-5.04 [facility] Comment on above: Performed By: #### H EMO #### [facility] (DEFAULT) [address] [place] [address] RBC Distribution 13.4 % Normal 10.8-14.9 [facility] Comment on above: Performed By: #### H EMO #### [facility] (DEFAULT) [address] [place] [address]75 WBC (Bld) [#/Vol] 12.02 10*3/uL High 3.99-11.19 [facility] Comment on above: Performed By: #### H [facility] #### [facility] (DEFAULT) [address] [place] [address] 86856 CHEM 7 (LYTES,BUN,CREA,GLUC) on 08-13-2024 Anion gap [Moles/Vol] 15 mmol/L 7 - 17 mmol/L [facility] Chloride [Moles/Vol] 104 mmol/L 98 - 10 8 mmol/L [facility] CO2 [Moles/Vol] 23 mmol/L 21 - 31 mmol/L [facility] Creatinine [Mass/Vol] 1.18 mg/dL 0.50 - 1.20 mg/dL [facility] eGFR, CKD-EPI, Female 47 Low - PINF [facility] Glucose [Mass/Vol] 225 mg/dL High 70 - 179 mg/dL [facility] Interpretation and review of laboratory results Abnormal [facility] Osmolality Calc [Osmolality] 311 High [facility] Potassium [Moles/Vol] 4.6 mmol/L 3.5 - 5.0 mmol/L [facility] Sodium [Moles/Vol] 137 mmol/L 135 - 145 mmol/L [facility] Urea nitrogen [Mass/Vol] 55 mg/dL High 7 - 25 mg/dL [facility] Urea nitrogen/Creatinine [Mass ratio] 47 mg/mg [facility] Anion gap [Moles/Vol] 15 mmol/L Normal 7-17 [facility] Comment on above: Performed By: #### H [facility] #### [facility] (DEFAULT) [address] [place] [address]951 Chloride [Moles/Vol] 104 mmol/L Normal 98-108 [facility] Comment on above: Performed By: #### H [facility] #### [facility] (DEFAULT) [address] [place] [address] 01636 CO2 [Moles/Vol] 23 mmol/L Normal 21-31 [facility] Comment on above: Performed By: #### H [facility] #### [facility] (DEFAULT) [address] [place] [address] 60741 Creatinine [Mass/Vol] 1.18 mg/dL Normal 0.50-1.20 [facility] Comment on above: Performed By: #### H [facility] #### [facility] (DEFAULT) [address] [place] [address] 13843 GFR/1.73 sq M.predicted among non-blacks MDRD (S/P/Bld) [Vol rate/Area] 47 mL/min/{1.73_m2} Low >=60 [facility] Comment on above: Result Comment: Repo rted eGFR is based on the CKD-EPI 2020 equation using creatinine, age, and sex. Performed By: #### H [facility] #### [facility] (DEFAULT) [address] [place] [address] 01618 Glucose [Mass/Vol] 225 mg/dL High Nonfastin -179 mg/dL; Fastin-99 [facility] Comment on above: Performed By: #### H EMOGC #### [facility] (DEFAULT) [address] [place] [address] 63778 Osmolality [Osmolality] 311 mosm/kg High 278-305 [facility] Comment on above: Performed By: #### H EMOGC #### [facility] (DEFAULT) [address] [place] [address] 93335 Potassium [Moles/Vol] 4.6 mmol/L Normal 3.5-5.0 [facility] Comment on above: Performed By: #### H EMOGC #### [facility] (DEFAULT) [address] [place] [address] 62924 Sodium [Moles/Vol] 137 mmol/L Normal 135-145 [facility] Comment on above: Performed By: #### H EMOGC #### [facility] (DEFAULT) [address] [place] [address] 36750 Urea nitrogen [Mass/Vol] 55 mg/dL High 7-25 [facility] Comment on above: Performed By: #### H EMOGC #### [facility] (DEFAULT) [address] [place] [address] 58858 Urea nitrogen/Creatinine [Mass ratio] 47 mg/mg Normal [facility] Comment on above: Performed By: #### H EMOGC #### [facility] (DEFAULT) [address] [place] [address] 26309 GLUCOSE POCon 08-13-2024 Glucose [Mass/Vol] 195 mg/dL High 70 - 179 mg/dL [facility] Interpretation and review of laboratory results Abnormal [facility] POC Sample Type CAPBL [facility] Glucose [Mass/Vol] 198 mg/dL High 70 - 179 mg/dL [facility] Interpretation and review of laboratory results Abnormal [facility] POC Sample [facility] Glucose [Mass/Vol] 158 mg/dL 70 - 179 mg/dL [facility] POC Sample Type CAPBL [facility] Glucose [Mass/Vol] 211 mg/dL High 70 - 179 mg/dL [facility] Interpretation and review of laboratory results Abnormal [facility] POC Sample Type CAPBL [facility] Glucose [Mass/Vol] 240 mg/dL High 70 - 179 mg/dL [facility] Interpretation and review of laboratory results Abnormal [facility] POC Sample Type CAPBL [facility] MAGNESIUMon 08-13-2024 Interpretation and review of laboratory results Normal [facility] Magnesium [Mass/Vol] 1.8 mg/dL 1.6 - 2 .6 mg/dL [facility] Magnesium [Mass/Vol] 1.8 mg/dL Normal 1.6-2.6 [facility] Comment on above: Performed By: #### H [facility] #### [facility] (DEFAULT) [address] [place] [address] No Panel Informationon 08-13 [facility] CBC,PLATELETSon 08-12-2024 Erythrocyte distribution width (RBC) [Ratio] 13.6 % 10.8 - 14.9 % [facility] Hematocrit (Bld) [Volume fraction] 45.1 % High 34.9 - 44.3 % [facility] Hemoglobin (Bld) [Mass/Vol] 14.3 g/dL 11.4 - 15.2 g/dL [facility] Interpretation and review of laboratory results Abnormal [facility] MCH (RBC) [Entitic mass] 29.7 pg 25.9 - 33.9 pg [facility] MCHC (RBC) [Mass/Vol] 31.7 g/dL 31.4 - 35.9 g/dL [facility] MCV (RBC) [Entitic vol] 93.6 fL 79.6 - 97.7 fL [facility] Platelet mean volume (Bld) [Entitic vol] 11.4 fL 8.5 - 12.2 fL [facility] Platelets (Bld) [#/Vol] 241 10*3/uL 150 - 393 K/uL [facility] RBC (Bld) [#/Vol] 4.82 10*6/uL [facility] WBC (Bld) [#/Vol] 14.32 10*3/uL High 3.99 - 11.19 K/uL [facility] Hematocrit (Bld) [Volume fraction] 45.1 % High 34.9-44.3 [facility] Comment on above: Performed By: #### H EMO #### [facility] (DEFAULT) [address] [place] [address] 04572 Hemoglobin (Bld) [Mass/Vol] 14.3 g/dL Normal 11.4-15.2 [facility] Comment on above: Performed By: #### H EMO #### [facility] (DEFAULT) [address] [place] [address] 10407 MCV (RBC) [Entitic vol] 93.6 fL Normal 79.6-97.7 O [facility] Comment on above: Performed By: #### H EMO #### [facility] (DEFAULT) [address] [place] [address] 35516 Mean Cell Hgb 29.7 pg Normal 25.9-33.9 [facility] Comment on above: Performed By: #### H EMO #### [facility] (DEFAULT) [address] [place] [address] 99752 Mean Cell Hgb Conc 31.7 g/dL Normal 31.4-35.9 [facility] Comment on above: Performed By: #### H EMOGC #### [facility] (DEFAULT) [address] [place] [address] 56138 Platelet mean volume (Bld) [Entitic vol] 11.4 fL Normal 8.5-12.2 [facility] Comment on above: Performed By: #### H EMO #### [facility] (DEFAULT) [address] [place] [address] 92634 Platelets (Bld) [#/Vol] 241 10*3/uL Normal 150-393 [facility] Comment on above: Performed By: #### H EMO #### [facility] (DEFAULT) [address] [place] [address] 06947 RBC (Bld) [#/Vol] 4.82 10*6/uL Normal 3.91-5.04 [facility] Comment on above: Performed By: #### H EMO #### [facility] (DEFAULT) [address] [place] [address] 10432 RBC Distribution 13.6 % Normal 10.8-14.9 [facility] Comment on above: Performed By: #### H EMO #### [facility] (DEFAULT) [address] [place] [address] 62549 WBC (Bld) [#/Vol] 14.32 10*3/uL High 3.99-11.19 [facility] Comment on above: Performed By: #### H [facility] #### [facility] (DEFAULT) [address] [place] [address] 82566 CHEM 7 (LYTES,BUN,CREA,GLUC) on 08-12-2024 Anion gap [Moles/Vol] 15 mmol/L 7 - 17 mmol/L [facility] Chloride [Moles/Vol] 104 mmol/L 98 - 10 8 mmol/L [facility] CO2 [Moles/Vol] 27 mmol/L 21 - 31 mmol/L [facility] Creatinine [Mass/Vol] 1.36 mg/dL High 0.50 - 1.20 mg/dL [facility] eGFR, CKD-EPI, Female 40 Low - PINF [facility] Glucose [Mass/Vol] 126 mg/dL 70 - 179 mg/dL [facility] Interpretation and review of laboratory results Abnormal [facility] Osmolality Calc [Osmolality] 313 High [facility] Potassium [Moles/Vol] 4.5 mmol/L 3.5 - 5.0 mmol/L [facility] Sodium [Moles/Vol] 141 mmol/L 135 - 145 mmol/L [facility] Urea nitrogen [Mass/Vol] 56 mg/dL High 7 - 25 mg/dL [facility] Urea nitrogen/Creatinine [Mass ratio] 41 mg/mg [facility] Anion gap [Moles/Vol] 15 mmol/L Normal 7-17 [facility] Comment on above: Performed By: #### T YPEC #### [facility] (DEFAULT) [address] [address] Chloride [Moles/Vol] 104 mmol/L Normal 98-108 [facility] Comment on above: Performed By: #### T YPEC #### [facility] (DEFAULT) [address] [address] CO2 [Moles/Vol] 27 mmol/L Normal 21-31 [facility] Comment on above: Performed By: #### T YPEC #### [facility] (DEFAULT) [address] [address] Creatinine [Mass/Vol] 1.36 mg/dL High 0.50-1.20 [facility] Comment on above: Performed By: #### T YPEC #### [facility] (DEFAULT) [address] [address] GFR/1.73 sq M.predicted among non-blacks MDRD (S/P/Bld) [Vol rate/Area] 40 mL/min/{1.73_m2} Low >=60 [facility] Comment on above: Result Comment: Repo rted eGFR is based on the CKD-EPI 2020 equation using creatinine, age, and sex. Performed By: #### T YPEC #### [facility] (DEFAULT) [address] [place] [address] Glucose [Mass/Vol] 126 mg/dL Normal Nonfastin -179 mg/dL; Fastin-99 [facility] Comment on above: Performed By: #### T YPEC #### [facility] (DEFAULT) [address] [place] [address] 77367 Osmolality [Osmolality] 313 mosm/kg High 278-305 [facility] Comment on above: Performed By: #### T YPEC #### [facility] (DEFAULT) [address] [place] [address] 68549 Potassium [Moles/Vol] 4.5 mmol/L Normal 3.5-5.0 [facility] Comment on above: Performed By: #### T YPEC #### [facility] (DEFAULT) [address] [place] [address] 92714 Sodium [Moles/Vol] 141 mmol/L Normal 135-145 [facility] Comment on above: Performed By: #### T YPEC #### [facility] (DEFAULT) [address] [place] [address] 09909 Urea nitrogen [Mass/Vol] 56 mg/dL High 7-25 [facility] Comment on above: Performed By: #### T YPEC #### [facility] (DEFAULT) [address] [place] [address] 23120 Urea nitrogen/Creatinine [Mass ratio] 41 mg/mg Normal [facility] Comment on above: Performed By: #### T YPEC #### [facility] (DEFAULT) [address] [place] [address] 96616 GLUCOSE POCon 08-12-2024 Glucose [Mass/Vol] 231 mg/dL High 70 - 179 mg/dL [facility] Interpretation and review of laboratory results Abnormal [facility] POC Sample Type CAPBL [facility] Glucose [Mass/Vol] 208 mg/dL High 70 - 179 mg/dL [facility] Interpretation and review of laboratory results Abnormal [facility] POC [facility] Glucose [Mass/Vol] 160 mg/dL 70 - 179 mg/dL [facility] POC Sample [facility] Glucose [Mass/Vol] 107 mg/dL 70 - 179 mg/dL [facility] POC Sample Type [facility] MAGNESIUM[facility] 08-12-2024 Interpretation and review of laboratory results Normal [facility] Magnesium [Mass/Vol] 2.2 mg/dL 1.6 - 2 .6 mg/dL [facility] Magnesium [Mass/Vol] 2.2 mg/dL Normal 1.6-2.6 [facility] Comment on above: Performed By: #### T YPEC #### [facility] (DEFAULT) [address] [place] [address] No Panel Informationon 08-12 [facility] SURG PATH REQUESTOrdered By: Renae Glez on 08-12-2024 Case Report [facility] Clinical History [id number] NVx hqlCvBVGtrBXuE3HsxmssYK gqPS4gNG6edCqrwQIzfPFvM XWpFsWjn4wva035qVUtz0ig UMBDbgyjaTv4rEfqF57nf3Z 8CynfS0fkWNSxWLrxXAMvXY sxaLIwEKg9THRxnVYthsMtA mRcDZUcmPIzzFT6OXUnTC7e haliSPybQYruXEAhqqV9CWU ltMQiC6TpXPVsOO5nwkrtLJ J2HFheMSHaPLF5ZjBnTLZkn 6Hesyv2KhAjrPf1t8zvVWCl ZIWqzAxcn8aoXDH0NQKcuEQ zF3lxeM8sCOSqFX7anbhtg3 whCOpmNRohLAHbzIP5nbU2W EPegZWlY7HxpH7dUFBgXVBz fkXqmYcjhA4tVeHfTSeoRxJ lNf7DPOjGWpOrDXFoe6TpRD PjAGEMcNXhja5uoXW2MWDMr 30rKdTeXFRrfPYqyJZUrRD2 j0G0TsHlKm5afPYvzELqhXT woMN1x6D3VVWgo1GvICPbFp xwYXJ9 [facility] For Immediate Release to Patient's MyChart? Yes Yes [facility] Gross Description e2pupHAhSUSin8vvNBYp bGF uZzEwMzNcZnRuYmpcdWMxIH tccnRmMVxlcGljMTExMDVcY D3vtJjtqBp7gXhuZVPbdyL2 wCSbQCmqv3niHIN1z0jjdfj aZWSeVPfqYk7diZJvaGxdVu QjIMLiAGs5uI31FMShjA7zv TIwXHobflZyWKKdP3YzBJ7y FRficKQqQLA2wJqaLKNiite wEtC7EZpaAQUfqeesDMz7SD smTAUeoVE9PVIhvIGqO8GpH ZHfRI3ygya6TGI5HZktEIUr NaG3SVTnkRSsFYGumTqbPMx uu568LNM4DaPkDHFkvuKioI zybI8bFlGlERGXfFDwc0IkL 1blAP5axVCukyHmWVo1FFLd wM7tj02pEWMwe9Ybtht1ITc zSjGjHZBiL92yhYKruqZaCB dpdGggdGhlIHBhdGllbnQnc dCdMH0mPACpKCQiE8Iiv0Fz h07nefKvQfSeKmBmjRTrRCQ pvygqCjTrTAewOgAzKax6PG IgVGhlIHNwZWNpbWVuIGlzI TNbd3imfpS4MOMaWdeeu6Xh pPNgBKEipdTnbIDaBQ4iYLE fhuMcb7VyPF0aQXXldlLmSc XlS11soiShHY2eUWVove0ap Q6aJVKcBePgrRgal7VjLZVr df8gLPTvYnL7tLB1ljXjEiK yJ50wgL0mG3SaYBDvx1EiSM imYH8riX0dZtZbNIAcYCIac PPlRZFocpWKQPAoZDIpHV8n oKg0XSfcHbeUAUuxDwMiYPV 0YNQejo63EZI3OdVno4M7NW RjKhYvPFQjCJ9qaXghLBGdZ T3iPJZtH5wwsH7phca4WdUd PLIeAyA3PJEtfyU5Cor2IQG dPWyzj4yse9YoWPSuIPc9iT trBjWiJNXze8qgniGiCoOqL XOgKBLsDWYboRPfH596l0il r6vjsvJkaSD6ZVCaYSM5INw gspZroqN4FXnalPAtNeP5FZ skayZnFRwvmnGgizLiWeu9K PHlZ748UFD9vPyzd3hvXMY2 YVSeIRSxJtHyMy9mtRNiQ63 6OMLaVIQTUPYsiJm2GIQsfn HvtxHakKUZc802V453j7mkB RNvnmHcvEnMmuvku8vmH516 XHBhcGVydzEyMjQwXHBhcGV ovPO4CHIuVC2jxlxjXHmjLU jcZAVucaE9BFZhxLGjZ0VwA RUhVP2paiqtKHE0DGbzHCGv EGJ7WlCsITOvk9Elcza0KpN xln1axn79ZDY1n0NyuRxgUB G7VRD9PzYzJa4wiETaOIZcV T9tDvBwqWFsWTHxfi79bFpm LOigxrZyvH2iSqFmBDBjpMX xCNPkEL6cqSBlCLRrzA0syr xjXHBnYnJkcmhlYWRccGdic oNdGz2gsCmhPSQ2HJmfY5af rT3aRaV0LPafN5jmoW5zUXm 7SXddwUW0CRQkoY4qMR5mfb fyq6keOSqtITpdMLJvkqK9t gM3ZTLruNPnB7BztH3lZQVm IO8gzjkxo1tuMWW2LTcnHOK xAAA6EiBwWVXzc1Vncpe6Gg Icm0FksLXlKBgtJ93hv564X JNwfoSzO3facKKtakvrvKQp aqprFRtdabF0JDDlJSSwOKz uXGYxXGZzMjJcbGFuZzEwMz NcaGljaFxmMVxkYmNoXGYxX DutM3ojInPuCiYjNqIMdh1h z0UmIKQwpjA9gTogOUFmh0C ek7AlVzDEYAZcN1VfLW5cpE EwNVIcpx57 [facility] m2puzBJgSZZzdWLd ZjIyMDA cFAEsm1tfHGUtuRFhTkMbBt NcZnRuYmpcdWMxXGRlZmYwe 9irc504pJJrf6ajZZCzEqP3 iRPlADIxiSIvA916VFCiFHx ug7jcs7HnQQUnuGAfn9Q7NL RUiidpgEz1yJglC84ax9K4R sdrX6ciEJUoEKThL4CeTK0i GIXdToe3QRF7SGT7TYDoZUF dV3AnCX2vQPYszKAwZKn8a5 wjnErxLMXwOQU2s5tjCPsrm xYgGG5jwg3peTa9j3kpqeBi KYRoDIKriWJAKZKdF2WcpXs mBg1fqXw8xPcvRuqxQAS7Fb z2DR1ljx67fql3lSnrQQMkt kipOlZ9HDkwDOBpefwqKWv2 ZBepZRNkuJU4KMRlrYEcL8H mAYZvPH3ujjq5RKM0HCedHV EqMaV3SUGskXRuQJHscDkeM Kinj195DUP5JkUwLR6fN4Ji t2X9zU8suVRbYYZodMSvDtF gXMVtsw1oyQMqCUvgm4XaPM B5rmS1zNRtuUGdZUYgAC30M kstz3PtUygkXCY9RRJtyuNb h2Mrg0zxXeYzxzBsS9kpG7W yZHJoZWFkXHBnYnJkcmZvb3 Yhl8AdmJJjuAh1a9upLSXjB FIllZahe7ofELY6OLAsH9Y2 ePPxm1cfOHozVFMomFU4peH 0TMNwpUSdT5BfeO7pLNTuYP 3tyqu5d6pqCKV0COjnRTZsQ yH1pjI0THMpeJQoWWUkrPnw CSptq982BTW8AwGiPZIhw6M yM5MgnJuvL80mpIxrM13uZW JbzDtlaD1yoIiwbX1eGmLsE nMyNFxxbFxwbGFpblxmMVxm tbHxAOrkattnEHWtDZjqH7n aXvSlBFZbnFdnEFvop1TwTD IrOPJiCfMoETSenGHls7Jql 3UnQtWmbHXcpD4rqGgbtnR7 QWBvyMTuOr8hjLQvBfMlqEL yfQ== [facility] Pathologic Diagnosis y7masOCxAZBehOIhYHZ wNVx pnkFqCINslLJaZ8CkkecvTY qpHU6nTG0qnAcrmUNiyEVtK CFzEyVrv5nau267nBEot6vw PFCWvmdyoBk9d1xzOWMUfV8 ll0v0bH09TSCwtO5xyRPeGF uespTpVIvaduJligPbKga3D LG9rBvmWkqepKG9kWRkhDW3 KRxdg7RfeCbrePrbTVKiGOD xIOT7W9zozEF9vEWeeNvctK BmEF6tg8rmkLT0mxGfKXM9r WiisNJ8aLtrimejb3ndcSW7 fUA0KXlrkFE6HEguGuCiG2y rIXGkjY0fR41gN0gfYZRxyF xeEYnsLNMdpZN1WTR0LDTbu 1xsZXZlbHRleHRcJzAxXCdi Fnb0b7doBUAuzO35bBJfzgO 7fVxmMVxmczIwXGxpMzYwXG ZpMTgwfXtcbGlzdGxldmVsX UaefmUjleTwZhFasYG6SOds SoFlFaZyzOL8YVikQxBxuJI 8HJwywNQkrNQ7NDroyZS5SE z4KRb2ZJwtOBgeEqn9iDqjz UK7OWzvbK2gSSPjZ52vBuKm JsImAG24TBvxf9FmTAOdeZp mBAXphL7bQmXdODmfdyRogh ZjbjIzXGxldmVsamMwXGxld xOuk0NjpkOgpPI1DQqaxpMz rQV1yCkrXKUfA0E5B318AKm idrBajaPmVmKdjai2WYFlQR PxQoB6a5jfpBQ9uOL8NCkkb NZ3GBvlOgPnU9rvFKDjkS0c G90fT2ahFNKadNyqTIcgORZ shMO8RWL1FWWov2cdYZKzcI UseKVcXrRhORbjDwi3j3coF QCfkF84vGCqrfG4nOllAGpn czIwfXtcbGlzdGxldmVsXGx vwwUiqgPdYkNylJT1XRjgHz ZbTeJsxPJ2GUkoZeXzeMC5A KnpwJUvfXO2AEfvzZB2HCl0 HGe2JOgxFVcsJnl9qEsqtPR 6ELebpN4nZXPpT77eIoItCy LsMQ95QIykr2NfBCHruByaJ POawC4rRtAdRNbxxtLbuiQa bjIzXGxldmVsamMwXGxldmV vb7UtkxCieJS4GGdtjzKoaN L9kOfyLNEsC8J5S858SJjen nOhalRvCiLukag7TDGaAWLl XcD1n5zldDT6xTP3THfccFN 5FFjsRcZkV9idTNOqdF7dE7 7uF7oqZZWhbLjkMYyxFYIxz RB0YIR6GAJbs4kiNWJpxLDx ePQvYrZwDJkqQxk5r1acKSI neV26lBPlzkV4kUpiZYmlfg IwfXtcbGlzdGxldmVsXGxld bQeviIhSqRhwGM1QGokWbVp JlVuuUT6AYxoQwLgjAE4JVe bnAGtoND2SDczpJV0CFd0ZL d5ZFzxNBtnSyp9jQfgsCE3I QqrhX4kKVUlT76xLwEeWvZv CT94JRuvh5MhHRBfzGtoXRV pcI0mFkYnMZmpqiQnjiUmps IzXGxldmVsamMwXGxldmVsc 6IgdfYhaRY6XHlqcfYobSS0 lEojSJTmL9J8R987LUzuyyV kzyPqUwIifqe4XNObQJBzMg Z5oA95SAmhoFegmQ22CMVkn XEioRQpwGF0IRucjQktrH54 PRIegOEaIFzjh2FqOHLdWcR 8BzQyHDRzxGdhvG84HVWhjI IlU478noAtNCjaFV75PKYzw GVydzEyMjQwXHBhcGVyaDE1 AXQvOR5zzhvzAFdiEGakOFN bhfS1EOZomEDgO3WaPPReCA 6gqvluNYJ4OWrjGZDeFUP2C aCuABRrz3Brdaj1XqRcyJSl MCkhqQQmupyvZGXiFyQjS0F fKTKmZSS9l30zR0ckBGCjt5 BzeTpccGFyXGxpMzYwXGZpM WnzYOsgzcM7URrayfKhnNl5 mMYofUjteZ1yOtwtyqCsCAC cJPJDq2OsbCJjek0hxM8fYX UmdvIYnqHSDJddC99uXVK0L XInnZtdv7BiJAjcZZ49gVTy ZWRccGFyfQ== [facility] Professional Interpretation Performed at: o4wnbCZjTAIlkIIyCuHnWVS aJQSqv6jaEVXsqNOuIaWySt NcZnRuYmpcdWMxXGRlZmYwe 2eiw205nEUii6ttVWBuWhF0 iVEqMNTzzBKdU386HRFbGZc qk9oet0UzUDNjcIOqe3V6GF WCyahwmRm4zGbmT75nf3D7U nmrW7zuOGSsGXCeD1ObXG6k HVCtXvt5NIW3XBK3VRJiWOD mK6BjXT8cPTGcrMHsVSe9d8 swjMpbSQYoQDQ4m1iyRGrpu lPhAE6fqq6wfCr8o3rtkiJz ZGViCTDswOLBOSJuM5OpvIt zMk4zpKx5iRzpRhgoUGG4Ln j2OY0yef25uws1xKanITLvh ulcFxZ0VMsoJDIdbpxgDZm9 WIqsZNUxoVN5BAOxcJFgO6T hJKQkTS5fvuj0PAO1QWzsWN KuHhC9SVWmbEWsWHFgiRacF Jstf811ZJC7ApOjPW9nB5Fp l5S7yC4ujWOdKEQtkFVbLbG nVJSggi7bvUIrMXvap6UcDI Q7ucL7vFEtwKInUEGaKJ79L lvzu7JaNecvJKP2HTBnnoFk v1Gss9fhIcJpiaZfB4ixY9P yZHJoZWFkXHBnYnJkcmZvb3 Ynz3QlnMTmfEe6a5dnCIXvI XDdbWwrp3ntGXF9BULpI3T4 sGLie1gtUZfqSNZjhOO4guT 3PGMpgCQyW1QozI1dEOItFB 2diiv0b5qvKUI4VKneWHRiP yD9tgH4TKFdmIAuKIOhhHlr OJxds527LWF8OyNjOKZzk5C lX8GkgBivW27wtLkzV93xET IruTxwyL8taVbjjZ3aCsVoF nMyNFxwYXJkXHBsYWluXGYx XGZzMjJcbGFuZzEwMzNcaGl jaFxmMVxkYmNoXGYxXGxvY2 ihIoRhFyNyGjQCT2FsH3FJL dHGXT3RWNfVBYcvH7HJXBGY OHPAUX1VH7MCYWvDBc5FZCS GZhqdfGHeMACrHFNDGOE1NO TuaMurQEGkZKLbgbTOj3v4s IP1qapcB2kmydE6HhDxYMmt YXJ9 [facility] CBC,PLATELETSon 08-11-2024 Erythrocyte distribution width (RBC) [Ratio] 13.7 % 10.8 - 14.9 % [facility] Hematocrit (Bld) [Volume fraction] 43.2 % 34.9 - 44.3 % [facility] Hemoglobin (Bld) [Mass/Vol] 14 g/dL 11.4 - 15.2 g/dL [facility] Interpretation and review of laboratory results Abnormal [facility] MCH (RBC) [Entitic mass] 29.9 pg 25.9 - 33.9 pg [facility] MCHC (RBC) [Mass/Vol] 32.4 g/dL 31.4 - 35.9 g/dL [facility] MCV (RBC) [Entitic vol] 92.1 fL 79.6 - 97.7 fL [facility] Platelet mean volume (Bld) [Entitic vol] 11.5 fL 8.5 - 12.2 fL [facility] Platelets (Bld) [#/Vol] 240 10*3/uL 150 - 393 K/uL [facility] RBC (Bld) [#/Vol] 4.69 10*6/uL [facility] WBC (Bld) [#/Vol] 11.76 10*3/uL High 3.99 - 11.19 K/uL [facility] Hematocrit (Bld) [Volume fraction] 43.2 % Normal 34.9-44.3 [facility] Comment on above: Performed By: #### T YPEC #### [facility] (DEFAULT) [address] [place] [address]702 Hemoglobin (Bld) [Mass/Vol] 14.0 g/dL Normal 11.4-15.2 [facility] Comment on above: Performed By: #### T YPEC #### [facility] (DEFAULT) [address] [place] [address] 52789 MCV (RBC) [Entitic vol] 92.1 fL Normal 79.6-97.7 O [facility] Comment on above: Performed By: #### T YPEC #### [facility] (DEFAULT) [address] [place] [address] 77987 Mean Cell Hgb 29.9 pg Normal 25.9-33.9 [facility] Comment on above: Performed By: #### T YPEC #### [facility] (DEFAULT) [address] [place] [address] 62792 Mean Cell Hgb Conc 32.4 g/dL Normal 31.4-35.9 [facility] Comment on above: Performed By: #### T YPEC #### [facility] (DEFAULT) [address] [place] [address] 54961 Platelet mean volume (Bld) [Entitic vol] 11.5 fL Normal 8.5-12.2 [facility] Comment on above: Performed By: #### T YPEC #### [facility] (DEFAULT) [address] [place] [address] 11186 Platelets (Bld) [#/Vol] 240 10*3/uL Normal 150-393 [facility] Comment on above: Performed By: #### T YPEC #### [facility] (DEFAULT) [address] [place] [address] 91402 RBC (Bld) [#/Vol] 4.69 10*6/uL Normal 3.91-5.04 [facility] Comment on above: Performed By: #### T YPEC #### [facility] (DEFAULT) [address] [place] [address] 56261 RBC Distribution 13.7 % Normal 10.8-14.9 [facility] Comment on above: Performed By: #### T YPEC #### [facility] (DEFAULT) [address] [place] [address]240 WBC (Bld) [#/Vol] 11.76 10*3/uL High 3.99-11.19 [facility] Comment on above: Performed By: #### T YPEC #### [facility] (DEFAULT) [address] [place] [address] 20049 CHEM 7 (LYTES,BUN,CREA,GLUC) on 08-11-2024 Anion gap [Moles/Vol] 14 mmol/L 7 - 17 mmol/L [facility] Chloride [Moles/Vol] 103 mmol/L 98 - 10 8 mmol/L [facility] CO2 [Moles/Vol] 26 mmol/L 21 - 31 mmol/L [facility] Creatinine [Mass/Vol] 1.32 mg/dL High 0.50 - 1.20 mg/dL [facility] eGFR, CKD-EPI, Female 41 Low - PINF [facility] Glucose [Mass/Vol] 127 mg/dL 70 - 179 mg/dL [facility] Interpretation and review of laboratory results Abnormal [facility] Osmolality Calc [Osmolality] 306 High [facility] Potassium [Moles/Vol] 4.6 mmol/L 3.5 - 5.0 mmol/L [facility] Sodium [Moles/Vol] 138 mmol/L 135 - 145 mmol/L [facility] Urea nitrogen [Mass/Vol] 53 mg/dL High 7 - 25 mg/dL [facility] Urea nitrogen/Creatinine [Mass ratio] 40 mg/mg [facility] Anion gap [Moles/Vol] 14 mmol/L Normal 7-17 [facility] Comment on above: Performed By: #### [facility] #### [facility] (DEFAULT) [address] [address] Chloride [Moles/Vol] 103 mmol/L Normal 98-108 [facility] Comment on above: Performed By: #### H [facility] #### [facility] (DEFAULT) [address] [address] CO2 [Moles/Vol] 26 mmol/L Normal 21-31 [facility] Comment on above: Performed By: #### H [facility] #### [facility] (DEFAULT) [address] [address] Creatinine [Mass/Vol] 1.32 mg/dL High 0.50-1.20 [facility] Comment on above: Performed By: #### [facility] #### [facility] (DEFAULT) [address] [address] GFR/1.73 sq M.predicted among non-blacks MDRD (S/P/Bld) [Vol rate/Area] 41 mL/min/{1.73_m2} Low >=60 [facility] Comment on above: Result Comment: Repo rted eGFR is based on the CKD-EPI 2020 equation using creatinine, age, and sex. Performed By: #### H EMOGC #### [facility] (DEFAULT) [address] [place] [address] 10074 Glucose [Mass/Vol] 127 mg/dL Normal Nonfastin -179 mg/dL; Fastin-99 [facility] Comment on above: Performed By: #### H EMOGC #### [facility] (DEFAULT) [address] [place] [address] 10933 Osmolality [Osmolality] 306 mosm/kg High 278-305 [facility] Comment on above: Performed By: #### H EMOGC #### [facility] (DEFAULT) [address] [place] [address] 18256 Potassium [Moles/Vol] 4.6 mmol/L Normal 3.5-5.0 [facility] Comment on above: Performed By: #### H EMO #### [facility] (DEFAULT) [address] [place] [address]244 Sodium [Moles/Vol] 138 mmol/L Normal 135-145 [facility] Comment on above: Performed By: #### H EMO #### [facility] (DEFAULT) [address] [place] [address] 33904 Urea nitrogen [Mass/Vol] 53 mg/dL High 7-25 [facility] Comment on above: Performed By: #### H EMOGC #### [facility] (DEFAULT) [address] [place] [address] 85648 Urea nitrogen/Creatinine [Mass ratio] 40 mg/mg Normal [facility] Comment on above: Performed By: #### H EMOGC #### [facility] (DEFAULT) [address] [place] [address] 67364 GLUCOSE POCon 08-11-2024 Glucose [Mass/Vol] 213 mg/dL High 70 - 179 mg/dL [facility] Interpretation and review of laboratory results Abnormal [facility] POC [facility] Glucose [Mass/Vol] 255 mg/dL High 70 - 179 mg/dL [facility] Interpretation and review of laboratory results Abnormal [facility] POC Sample Type [facility] Glucose [Mass/Vol] 190 mg/dL High 70 - 179 mg/dL [facility] Interpretation and review of laboratory results Abnormal [facility] POC Sample Type CAPBL [facility] Glucose [Mass/Vol] 205 mg/dL High 70 - 179 mg/dL [facility] Interpretation and review of laboratory results Abnormal [facility] POC Sample Type CAPBL [facility] MAGNESIUMon 08-11-2024 Interpretation and review of laboratory results Normal [facility] Magnesium [Mass/Vol] 1.9 mg/dL 1.6 - 2 .6 mg/dL [facility] Magnesium [Mass/Vol] 1.9 mg/dL Normal 1.6-2.6 [facility] Comment on above: Performed By: #### M GO, CHM7 #### [facility] (DEFAULT) [address] [place] [address] No Panel Informationon 08-11 [facility] BLOOD CULTUREon 08-10-2024 Bacteria identified Cx Nom (Unsp spec) NO GROWTH DAY 5 OF 5 Normal [facility] Comment on above: Order Comment: [...] bottle. Performed By: #### T YPEC #### [facility] (DEFAULT) [address] [place] [address] Bacteria identified Cx Nom (Unsp spec) NO GROWTH DAY 5 OF 5 Normal [facility] Comment on above: Order Comment: [...] bottle. Performed By: #### B LDCULT #### [facility] (DEFAULT) [address] [place] [address] CBC,PLATELETSon 08-10-2024 Erythrocyte distribution width (RBC) [Ratio] 13.3 % 10.8 - 14.9 % [facility] Hematocrit (Bld) [Volume fraction] 45.1 % High 34.9 - 44.3 % [facility] Hemoglobin (Bld) [Mass/Vol] 14.1 g/dL 11.4 - 15.2 g/dL [facility] Interpretation and review of laboratory results Abnormal [facility] MCH (RBC) [Entitic mass] 29.1 pg 25.9 - 33.9 pg [facility] MCHC (RBC) [Mass/Vol] 31.3 g/dL Low 31.4 - 35.9 g/dL [facility] MCV (RBC) [Entitic vol] 93 fL 79.6 - 97.7 fL [facility] Platelet mean volume (Bld) [Entitic vol] 11.4 fL 8.5 - 12.2 fL [facility] Platelets (Bld) [#/Vol] 216 10*3/uL 150 - 393 K/uL [facility] RBC (Bld) [#/Vol] 4.85 10*6/uL [facility] WBC (Bld) [#/Vol] 13.78 10*3/uL High 3.99 - 11.19 K/uL [facility] Hematocrit (Bld) [Volume fraction] 45.1 % High 34.9-44.3 [facility] Comment on above: Performed By: #### H EMOGC #### [facility] (DEFAULT) [address] [place] [address] 18547 Hemoglobin (Bld) [Mass/Vol] 14.1 g/dL Normal 11.4-15.2 [facility] Comment on above: Performed By: #### H EMOGC #### [facility] (DEFAULT) [address] [place] [address] 65398 MCV (RBC) [Entitic vol] 93.0 fL Normal 79.6-97.7 [facility] Comment on above: Performed By: #### H EMOGC #### [facility] (DEFAULT) [address] [place] [address] 24134 Mean Cell Hgb 29.1 pg Normal 25.9-33.9 [facility] Comment on above: Performed By: #### H EMOGC #### [facility] (DEFAULT) [address] [place] [address] 74134 Mean Cell Hgb Conc 31.3 g/dL Low 31.4-35.9 [facility] Comment on above: Performed By: #### H EMOGC #### [facility] (DEFAULT) [address] [place] [address] 38670 Platelet mean volume (Bld) [Entitic vol] 11.4 fL Normal 8.5-12.2 [facility] Comment on above: Performed By: #### H EMOGC #### [facility] (DEFAULT) [address] [place] [address] 63718 Platelets (Bld) [#/Vol] 216 10*3/uL Normal 150-393 [facility] Comment on above: Performed By: #### H EMOGC #### [facility] (DEFAULT) [address] [place] [address] 78020 RBC (Bld) [#/Vol] 4.85 10*6/uL Normal 3.91-5.04 [facility] Comment on above: Performed By: #### [facility] #### [facility] (DEFAULT) [address] [place] [address] RBC Distribution 13.3 % Normal 10.8-14.9 [facility] Comment on above: Performed By: #### [facility] #### [facility] (DEFAULT) [address] [place] [address] WBC (Bld) [#/Vol] 13.78 10*3/uL High 3.99-11.19 [facility] Comment on above: Performed By: #### [facility] #### [facility] (DEFAULT) [address] [place] [address] CHEM 7 (LYTES,BUN,CREA,GLUC) on 08-10-2024 Anion gap [Moles/Vol] 16 mmol/L 7 - 17 mmol/L [facility] Chloride [Moles/Vol] 103 mmol/L 98 - 10 8 mmol/L [facility] CO2 [Moles/Vol] 24 mmol/L 21 - 31 mmol/L [facility] Creatinine [Mass/Vol] 1.36 mg/dL High 0.50 - 1.20 mg/dL [facility] eGFR, CKD-EPI, Female 40 Low - PINF [facility] Glucose [Mass/Vol] 186 mg/dL High 70 - 179 mg/dL [facility] Interpretation and review of laboratory results Abnormal [facility] Osmolality Calc [Osmolality] 308 High [facility] Potassium [Moles/Vol] 4.9 mmol/L 3.5 - 5.0 mmol/L [facility] Sodium [Moles/Vol] 138 mmol/L 135 - 145 mmol/L [facility] Urea nitrogen [Mass/Vol] 47 mg/dL High 7 - 25 mg/dL [facility] Urea nitrogen/Creatinine [Mass ratio] 35 mg/mg [facility] Anion gap [Moles/Vol] 16 mmol/L Normal 7-[address] [facility] Comment on above: Performed By: #### HEYDI PALACIOS7 ####[facility] (DEFAULT)[address] [facility] [place] [address] Chloride [Moles/Vol] 103 mmol/L Normal 98-108 [facility] Comment on above: Performed By: #### HEYDI PALACIOS7 ####[facility] (DEFAULT)[address] [facility] [place] [address] CO2 [Moles/Vol] 24 mmol/L Normal 21-31 [facility] Comment on above: Performed By: #### HEYDI PALACIOS7 ####[facility] (DEFAULT)[address] [place] [address], [place] [address] Creatinine [Mass/Vol] 1.36 mg/dL High 0.50-1.20 [facility] Comment on above: Performed By: #### HEYDI PALACIOS7 ####[facility] (DEFAULT)[address] [place] [address], [place] [address] GFR/1.73 sq M.predicted among non-blacks MDRD (S/P/Bld) [Vol rate/Area] 40 mL/min/{1.73_m2} Low >=60 [facility] Comment on above: Result Comment: Repo rted eGFR is based on the CKD-EPI 2020 equation using creatinine, age, and sex. Performed By: #### CAMERON PALACIOS ####[facility] (DEFAULT)[address] [place] [address] Glucose [Mass/Vol] 186 mg/dL High Nonfastin -179 mg/dL; Fastin-99 [facility] Comment on above: Performed By: #### HEYDI PALACIOS7 ####[facility] (DEFAULT)[address] [place] [address], [place] [address] Osmolality [Osmolality] 308 mosm/kg High 278-305 [facility] Comment on above: Performed By: #### HEYDI PALACIOS7 ####[facility] (DEFAULT)[address] [place] [address] Potassium [Moles/Vol] 4.9 mmol/L Normal 3.5-5.0 [facility] Comment on above: Performed By: #### M WENDY, CHM7 ####[facility] (DEFAULT)[address] [place] [address] Sodium [Moles/Vol] 138 mmol/L Normal 135-145 [facility] Comment on above: Performed By: #### M WENDY, CHM7 ####[facility] (DEFAULT)[address] [facility] [place] [address] Urea nitrogen [Mass/Vol] 47 mg/dL High 7-25 [facility] Comment on above: Performed By: #### M WENDY, CHM7 ####[facility] (DEFAULT)[address] [facility] [place] [address] Urea nitrogen/Creatinine [Mass ratio] 35 mg/mg Normal [facility] Comment on above: Performed By: #### Jaiden NGUYEN, CHM7 ####[facility] (DEFAULT)[address] [place] [address] GLUCOSE POCon 08-10-2024 Glucose [Mass/Vol] 144 mg/dL 70 - 179 mg/dL [facility] POC Sample Type CAPBL [facility] Glucose [Mass/Vol] 177 mg/dL 70 - 179 mg/dL [facility] POC Sample [facility] Glucose [Mass/Vol] 180 mg/dL High 70 - 179 mg/dL [facility] Interpretation and review of laboratory results Abnormal [facility] POC Sample Type [facility] Glucose [Mass/Vol] 193 mg/dL High 70 - 179 mg/dL [facility] Interpretation and review of laboratory results Abnormal [facility] POC Sample Type CAPBL [facility] Glucose [Mass/Vol] 200 mg/dL High 70 - 179 mg/dL [facility] Interpretation and review of laboratory results Abnormal [facility] POC Sample Type CAPBL [facility] Glucose [Mass/Vol] 198 mg/dL High 70 - 179 mg/dL [facility] Interpretation and review of laboratory results Abnormal [facility] POC Sample Type CAPBL [facility] MAGNESIUMon 08-10-2024 Interpretation and review of laboratory results Normal [facility] Magnesium [Mass/Vol] 1.8 mg/dL 1.6 - 2 .6 mg/dL [facility] Magnesium [Mass/Vol] 1.8 mg/dL Normal 1.6-2.6 [facility] Comment on above: Performed By: #### M , [facility] ####[facility] (DEFAULT)[address] [place] [address] No Panel Informationon 08-10 [facility] URINE CULTUREOrdered By: Franklin Carcamo on 08-10-2024 Bacteria identified Cx Nom (Unsp spec) Growth [facility] Bacteria identified Cx Nom (Unsp spec) KLEBSIELLA PNEUMONIAE Abnormal [facility] Interpretation and review of laboratory results Abnormal [facility] CBC,PLATELETSon 08-09-2024 Erythrocyte distribution width (RBC) [Ratio] 13.5 % 10.8 - 14.9 % [facility] Hematocrit (Bld) [Volume fraction] 44.4 % High 34.9 - 44.3 % [facility] Hemoglobin (Bld) [Mass/Vol] 14.1 g/dL 11.4 - 15.2 g/dL [facility] Interpretation and review of laboratory results Abnormal [facility] MCH (RBC) [Entitic mass] 29.4 pg 25.9 - 33.9 pg [facility] MCHC (RBC) [Mass/Vol] 31.8 g/dL 31.4 - 35.9 g/dL [facility] MCV (RBC) [Entitic vol] 92.7 fL 79.6 - 97.7 fL [facility] Platelet mean volume (Bld) [Entitic vol] 11.5 fL 8.5 - 12.2 fL [facility] Platelets (Bld) [#/Vol] 226 10*3/uL 150 - 393 K/uL [facility] RBC (Bld) [#/Vol] 4.79 10*6/uL [facility] WBC (Bld) [#/Vol] 12.37 10*3/uL High 3.99 - 11.19 K/uL [facility] Hematocrit (Bld) [Volume fraction] 44.4 % High 34.9-44.3 [facility] Comment on above: Performed By: #### [facility] #### [facility] (DEFAULT) [address] [place] [address] Hemoglobin (Bld) [Mass/Vol] 14.1 g/dL Normal 11.4-15.2 [facility] Comment on above: Performed By: #### H EMO #### [facility] (DEFAULT) [address] [place] [address] MCV (RBC) [Entitic vol] 92.7 fL Normal 79.6-97.7 O [facility] Comment on above: Performed By: #### H EMOGC #### [facility] (DEFAULT) [address] [place] [address]25[address] Mean Cell Hgb 29.4 pg Normal 25.9-33.9 [facility] Comment on above: Performed By: #### H EMOGC #### [facility] (DEFAULT) [address] [place] [address] Mean Cell Hgb Conc 31.8 g/dL Normal 31.4-35.9 [facility] Comment on above: Performed By: #### H EMO #### [facility] (DEFAULT) [address] [place] [id number] Platelet mean volume (Bld) [Entitic vol] 11.5 fL Normal 8.5-12.2 [facility] Comment on above: Performed By: #### H EMO #### [facility] (DEFAULT) [address] [place] [id number] Platelets (Bld) [#/Vol] 226 10*3/uL Normal 150-393 [facility] Comment on above: Performed By: #### H EMO #### [facility] (DEFAULT) [address] [place] [id number] RBC (Bld) [#/Vol] 4.79 10*6/uL Normal 3.91-5.04 [facility] Comment on above: Performed By: #### H EMO #### [facility] (DEFAULT) [address] [place] [address] [id number] RBC Distribution 13.5 % Normal 10.8-14.9 [facility] Comment on above: Performed By: #### H EMO #### [facility] [facility] (DEFAULT) [address] [place] [address] WBC (Bld) [#/Vol] 12.37 10*3/uL High 3.99-11.19 [facility] Comment on above: Performed By: #### H EMO #### [facility] (DEFAULT) [address] [place] [address] CHEM 7 (LYTES,BUN,CREA,GLUC) on 08-09-2024 Anion gap [Moles/Vol] 14 mmol/L 7 - 17 mmol/L [facility] Chloride [Moles/Vol] 103 mmol/L 98 - 10 8 mmol/L [facility] CO2 [Moles/Vol] 26 mmol/L 21 - 31 mmol/L [facility] Creatinine [Mass/Vol] 1.35 mg/dL High 0.50 - 1.20 mg/dL [facility] eGFR, CKD-EPI, Female 40 Low - PINF [facility] Glucose [Mass/Vol] 182 mg/dL High 70 - 179 mg/dL [facility] Interpretation and review of laboratory results Abnormal [facility] Osmolality Calc [Osmolality] 305 [facility] Potassium [Moles/Vol] 4.9 mmol/L 3.5 - 5.0 mmol/L [facility] Sodium [Moles/Vol] 138 mmol/L 135 - 145 mmol/L [facility] Urea nitrogen [Mass/Vol] 38 mg/dL High 7 - 25 mg/dL [facility] Urea nitrogen/Creatinine [Mass ratio] 28 mg/mg [facility] Anion gap [Moles/Vol] 14 mmol/L Normal 7-17 [facility] Comment on above: Performed By: #### H [facility] #### [facility] (DEFAULT) [address] [address] Chloride [Moles/Vol] 103 mmol/L Normal 98-108 [facility] Comment on above: Performed By: #### H [facility] #### [facility] (DEFAULT) [address] [address] CO2 [Moles/Vol] 26 mmol/L Normal 21-31 [facility] Comment on above: Performed By: #### H [facility] #### [facility] (DEFAULT) [address] [address] Creatinine [Mass/Vol] 1.35 mg/dL High 0.50-1.20 [facility] Comment on above: Performed By: #### H [facility] #### [facility] (DEFAULT) [address] [address] GFR/1.73 sq M.predicted among non-blacks MDRD (S/P/Bld) [Vol rate/Area] 40 mL/min/{1.73_m2} Low >=60 [facility] Comment on above: Result Comment: Repo rted eGFR is based on the CKD-EPI 2020 equation using creatinine, age, and sex. Performed By: #### H EMOGC #### [facility] (DEFAULT) [address] [place] [address] Glucose [Mass/Vol] 182 mg/dL High Nonfastin -179 mg/dL; Fastin-99 [facility] Comment on above: Performed By: #### H EMOGC #### [facility] (DEFAULT) [address] [place] [address] Osmolality [Osmolality] 305 mosm/kg Normal 278-305 [facility] Comment on above: Performed By: #### H EMOGC #### [facility] (DEFAULT) [address] [place] [address] Potassium [Moles/Vol] 4.9 mmol/L Normal 3.5-5.0 [facility] Comment on above: Performed By: #### H EMO #### [facility] (DEFAULT) [address] [place] [address] Sodium [Moles/Vol] 138 mmol/L Normal 135-145 [facility] Comment on above: Performed By: #### H EMO #### [facility] (DEFAULT) [address] [place] [address] Urea nitrogen [Mass/Vol] 38 mg/dL High 7-25 [facility] Comment on above: Performed By: #### H EMOGC #### [facility] (DEFAULT) [address] [place] [address] Urea nitrogen/Creatinine [Mass ratio] 28 mg/mg Normal [facility] Comment on above: Performed By: #### H EMOGC #### [facility] (DEFAULT) [address] [place] [address] EXTRA MICROon 08-09-2024 [facility] GLUCOSE POCon 08-09-2024 Glucose [Mass/Vol] 186 mg/dL High 70 - 179 mg/dL [facility] Interpretation and review of laboratory results Abnormal [facility] POC Sample Type [facility] Glucose [Mass/Vol] 255 mg/dL High 70 - 179 mg/dL [facility] Interpretation and review of laboratory results Abnormal [facility] POC Sample Type [facility] Glucose [Mass/Vol] 235 mg/dL High 70 - 179 mg/dL [facility] Interpretation and review of laboratory results Abnormal [facility] POC Sample Type CAPBL [facility] Glucose [Mass/Vol] 167 mg/dL 70 - 179 mg/dL [facility] POC Sample Type CAPBL [facility] INTERVENTIONAL UPPER ENDOSCO PYon 08-09-2024 Body surface area Derived from formula 1.9 m2 [facility] LAB, [facility] Radiology Study observation (narrative) [facility] MAGNESIUMon 08-09-2024 Interpretation and review of laboratory results Normal [facility] Magnesium [Mass/Vol] 1.8 mg/dL 1.6 - 2 .6 mg/dL [facility] Magnesium [Mass/Vol] 1.8 mg/dL Normal 1.6-2.6 [facility] Comment on above: Performed By: #### H [facility] #### [facility] (DEFAULT) [address] [place] [address] No Panel Informationon 08-09 [facility] PT,INR,PTTon 08-09-2024 aPTT Coag (PPP) [Time] 38.4 s High [facility] INR Coag (Bld) [Relative time] 1 {INR} 0.9 - 1.1 [facility] Interpretation and review of laboratory results Abnormal [facility] PT Coag (PPP) [Time] 13 s [facility] aPTT Coag (Bld) [Time] 38.4 s High 24.0-34.3 [facility] Comment on above: Performed By: #### B LDCULT #### [facility] (DEFAULT) [address] [place] [address] INR Coag (PPP) [Relative time] 1.0 {INR} Normal 0.9-1.1 [facility] Comment on above: Performed By: #### B LDCULT #### [facility] (DEFAULT) [address] [address] PT Coag (PPP) [Time] 13.0 s Normal 11.9-14.2 [facility] Comment on above: Performed By: #### B LDCULT #### [facility] (DEFAULT) [address] [place] [address] SURG PATH REQUESTon 08-10-19 Case Report [facility] Comment on above: Result Comment: Surg ical Pathology Report Case: [id number] Authorizing Provider: Judson Keith DO Collected: 08/09/2024 10:07 AM Ordering Location: [facility] Received: 08/09/2024 12:13 PM Pathologist: Renae Glez MD Specimen: STOMACH, gastric, r/o HP Performed By: #### S URGP #### [facility] (DEFAULT) [address] [place] [address] Clinical History R/O HP. Associated Diagnosis: None. Medical History: No medical history provided. [facility] Comment on above: Performed By: #### S URGP #### [facility] (DEFAULT) [address] [place] [address] Gross Description [facility] Comment on above: Result Comment: The specimen is received in one properly labeled container with the patient's name and accession number. A. The specimen is designated "gastric, r/o hp" and consists of five fragments of jackson-pink soft tissue, from 0.2 up to 0.6 cm in greatest dimension. TE 1 Lab Use Only: JobID [id number] Grosser for this case was: Sunshine Gwen Performed By: #### S URGP #### [facility] (DEFAULT) [address] [address] Microscopic Description A microscopic examination was performed. Normal [facility] Comment on above: Performed By: #### S URGP #### [facility] (DEFAULT) [address] [address] Pathologic Diagnosis Normal [facility] Comment on above: Result Comment: Anjelica echols, biopsy: Focal erosion No Helicobacter pylori identified at 1005 EDT Performed By: #### S URGP #### [facility] (DEFAULT) [address] [address] Professional Interpretation Performed at: [facility] Comment on above: Result Comment: [facility] CL[facility]ICAL [facility] For Immediate Release [facility] [address] [address] Performed By: #### S URGP #### [facility] (DEFAULT) [address] [address] CBC,PLATELETSon 08-08-2024 Erythrocyte distribution width (RBC) [Ratio] 13.6 % 10.8 - 14.9 % [facility] Hematocrit (Bld) [Volume fraction] 45.7 % High 34.9 - 44.3 % [facility] Hemoglobin (Bld) [Mass/Vol] 14.4 g/dL 11.4 - 15.2 g/dL [facility] Interpretation and review of laboratory results Abnormal [facility] MCH (RBC) [Entitic mass] 29.4 pg 25.9 - 33.9 pg [facility] MCHC (RBC) [Mass/Vol] 31.5 g/dL 31.4 - 35.9 g/dL [facility] MCV (RBC) [Entitic vol] 93.3 fL 79.6 - 97.7 fL [facility] Platelet mean volume (Bld) [Entitic vol] 10.9 fL 8.5 - 12.2 fL [facility] Platelets (Bld) [#/Vol] 212 10*3/uL 150 - 393 K/uL [facility] RBC (Bld) [#/Vol] 4.9 10*6/uL [facility] WBC (Bld) [#/Vol] 10.39 10*3/uL 3.99 - 11.19 K/uL [facility] Hematocrit (Bld) [Volume fraction] 45.7 % High 34.9-44.3 [facility] Comment on above: Performed By: #### H EMO #### [facility] (DEFAULT) [address] [place] [address] Hemoglobin (Bld) [Mass/Vol] 14.4 g/dL Normal 11.4-15.2 [facility] Comment on above: Performed By: #### H EMO #### [facility] (DEFAULT) [address] [place] [address] MCV (RBC) [Entitic vol] 93.3 fL Normal 79.6-97.7 O [facility] Comment on above: Performed By: #### H EMOGC #### [facility] (DEFAULT) [address] [place] [address] Mean Cell Hgb 29.4 pg Normal 25.9-33.9 [facility] Comment on above: Performed By: #### H EMOGC #### [facility] (DEFAULT) [address] [place] [address] Mean Cell Hgb Conc 31.5 g/dL Normal 31.4-35.9 [facility] Comment on above: Performed By: #### H EMOGC #### [facility] (DEFAULT) [address] [place] [address] Platelet mean volume (Bld) [Entitic vol] 10.9 fL Normal 8.5-12.2 [facility] Comment on above: Performed By: #### H EMO #### [facility] (DEFAULT) [address] [place] [address] Platelets (Bld) [#/Vol] 212 10*3/uL Normal 150-393 [facility] Comment on above: Performed By: #### H EMO #### [facility] (DEFAULT) [address] [place] [address] RBC (Bld) [#/Vol] 4.90 10*6/uL Normal 3.91-5.04 [facility] Comment on above: Performed By: #### H EMO #### [facility] (DEFAULT) [address] [place] [address] RBC Distribution 13.6 % Normal 10.8-14.9 [facility] Comment on above: Performed By: #### H EMO #### [facility] (DEFAULT) [address] [place] [address] WBC (Bld) [#/Vol] 10.39 10*3/uL Normal 3.99-11.19 [facility] Comment on above: Performed By: #### H [facility] #### [facility] (DEFAULT) [address] [place] [address] CHEM 7 (LYTES,BUN,CREA,GLUC) on 08-08-2024 Anion gap [Moles/Vol] 15 mmol/L 7 - 17 mmol/L [facility] Chloride [Moles/Vol] 104 mmol/L 98 - 10 8 mmol/L [facility] CO2 [Moles/Vol] 25 mmol/L 21 - 31 mmol/L [facility] Creatinine [Mass/Vol] 1.15 mg/dL 0.50 - 1.20 mg/dL [facility] eGFR, CKD-EPI, Female 48 Low - PINF [facility] Glucose [Mass/Vol] 111 mg/dL 70 - 179 mg/dL [facility] Interpretation and review of laboratory results Abnormal [facility] Osmolality Calc [Osmolality] 302 [facility] Potassium [Moles/Vol] 4.3 mmol/L 3.5 - 5.0 mmol/L [facility] Sodium [Moles/Vol] 140 mmol/L 135 - 145 mmol/L [facility] Urea nitrogen [Mass/Vol] 35 mg/dL High 7 - 25 mg/dL [facility] Urea nitrogen/Creatinine [Mass ratio] 30 mg/mg [facility] Anion gap [Moles/Vol] 15 mmol/L Normal 7-17 [facility] Comment on above: Performed By: #### CAMERON PALACIOS ####[facility] (DEFAULT)[address] [place] [address], [place] [address] Chloride [Moles/Vol] 104 mmol/L Normal 98-108 [facility] Comment on above: Performed By: #### CAMERON PALACIOS ####[facility] (DEFAULT)[address] [place] [address] CO2 [Moles/Vol] 25 mmol/L Normal 21-31 [facility] Comment on above: Performed By: #### CAMERON PALACIOS ####[facility] (DEFAULT)[address] [place] [address] Creatinine [Mass/Vol] 1.15 mg/dL Normal 0.50-1.20 [facility] Comment on above: Performed By: #### CAMERON PALACIOS ####[facility] (DEFAULT)[address] [place] [address], [place] [address] GFR/1.73 sq M.predicted among non-blacks MDRD (S/P/Bld) [Vol rate/Area] 48 mL/min/{1.73_m2} Low >=60 [facility] Comment on above: Result Comment: Repo rted eGFR is based on the CKD-EPI 2020 equation using creatinine, age, and sex. Performed By: #### HEYDI PALACIOS7 ####[facility] (DEFAULT)[address] [place] [address] Glucose [Mass/Vol] 111 mg/dL Normal Nonfastin -179 mg/dL; Fastin-99 [facility] Comment on above: Performed By: #### Jaiden NGUYEN CHM7 ####[facility] (DEFAULT)[address] [place] [address] Osmolality [Osmolality] 302 mosm/kg Normal 278-305 [facility] Comment on above: Performed By: #### Jaiden NGUYEN CHM7 ####[facility] (DEFAULT)[address] [place] [address] Potassium [Moles/Vol] 4.3 mmol/L Normal 3.5-5.0 [facility] Comment on above: Performed By: #### Jaiden NGUYEN CHM7 ####[facility] (DEFAULT)[address] [place] [address] Sodium [Moles/Vol] 140 mmol/L Normal 135-145 [facility] Comment on above: Performed By: #### Jaiden NGUYEN CHM7 ####[facility] (DEFAULT)[address] [place] [address] Urea nitrogen [Mass/Vol] 35 mg/dL High 7-25 [facility] Comment on above: Performed By: #### Jaiden NGUYEN CHM7 ####[facility] (DEFAULT)[address] [place] [address] Urea nitrogen/Creatinine [Mass ratio] 30 mg/mg Normal [facility] Comment on above: Performed By: #### Jaiden NGUYEN CHM7 ####[facility] (DEFAULT)[address] [place] [address] CT HEAD WITHOUT CONTRASTon 0 08-08-2024 CT [...] have reviewed and approved this report. Normal [facility] CT Head WO contraston 2024 RADIOLOGY RADIOLOGY [facility] Radiology Study observation (narrative) [facility] GLUCOSE POCon 08-08-2024 Glucose [Mass/Vol] 150 mg/dL 70 - 179 mg/dL [facility] POC Sample Type [facility] Glucose [Mass/Vol] 148 mg/dL 70 - 179 mg/dL [facility] POC Sample [facility] Glucose [Mass/Vol] 192 mg/dL High 70 - 179 mg/dL [facility] Interpretation and review of laboratory results Abnormal [facility] Glucose [Mass/Vol] 198 mg/dL High 70 - 179 mg/dL [facility] Interpretation and review of laboratory results Abnormal [facility] POC Sample Type [facility] Glucose [Mass/Vol] 186 mg/dL High 70 - 179 mg/dL [facility] Interpretation and review of laboratory results Abnormal [facility] POC Sample Type [facility] MAGN[facility] 08-08-2024 Interpretation and review of laboratory results Normal [facility] Magnesium [Mass/Vol] 1.7 mg/dL 1.6 - 2 .6 mg/dL [facility] Magnesium [Mass/Vol] 1.7 mg/dL Normal 1.6-2.6 [facility] Comment on above: Performed By: #### M [facility] ####[facility] (DEFAULT)[address] [place] [address] No Panel Informationon 08-08 [facility] URINALYSIS REFLEX TO CULTURE PERFORMABLEOrdered By: Danya Yates on 08-08-2024 Appearance (U) Cloudy Abnormal Clear [facility] Bacteria LM Ql (Urine sed) PRESENT Abnormal ABSENT [facility] Color (U) Yellow Yellow [facility] Epithelial cells.squamous LM Ql (Urine sed) 0-2/hpf 0-2/hpf, 3-5/hpf = 1+ [facility] Glucose Test strip (U) [Mass/Vol] Negative Negative [facility] Interpretation and review of laboratory results Abnormal [facility] Ketones (U) [Mass/Vol] Trace Abnormal Negative [facility] Leukocyte esterase Test strip Ql (U) Large Abnormal Negative [facility] Nitrite Ql (U) Positive Abnormal Negative [facility] pH (U) 7.0 [pH] 5.0 - 7.0 [facility] Protein (U) [Mass/Vol] Trace Abnormal Negative OS [facility] RBC (U) [#/Vol] Trace Abnormal Negative [facility] RBC LM.HPF (Urine sed) [#/Area] 6-10 Abnormal [facility] Specific gravity (U) [Rel density] 1.023 1.001 - 1.035 [facility] Urobilinogen (U) [Mass/Vol] 1.0 E.U./dL 0.2 E.U/dL, 1.0 E.U/dL U [facility] WBC LM.HPF (Urine sed) [#/Area] /[HPF] Abnormal [facility] URINALYSIS REFLEX TO CULTURE PERFORMABLEon 08-08-2024 Appearance (U) Cloudy Abnormal Clear [facility] Comment on above: Order Comment: For i ndwelling catheters, specimen collection is acceptable on catheter day 1 and 2 only. ? Performed By: #### T YPEC #### [facility] (DEFAULT) [address] [place] [address] Bacteria PRESENT Abnormal ABSENT [facility] Comment on above: Order Comment: For i ndwelling catheters, specimen collection is acceptable on catheter day 1 and 2 only. ? Performed By: #### T YPEC #### [facility] (DEFAULT) [address] [place] [address] Blood Urine Trace Abnormal Negative [facility] Comment on above: Order Comment: For i ndwelling catheters, specimen collection is acceptable on catheter day 1 and 2 only. ? Performed By: #### T YPEC #### [facility] (DEFAULT) [address] [place] [address] Color (U) Yellow Normal Yellow [facility] Comment on above: Order Comment: For i ndwelling catheters, specimen collection is acceptable on catheter day 1 and 2 only. ? Performed By: #### T YPEC #### [facility] (DEFAULT) [address] [place] [address] Glucose Ql (U) Negative Normal Negative [facility] Comment on above: Order Comment: For i ndwelling catheters, specimen collection is acceptable on catheter day 1 and 2 only. ? Performed By: #### T YPEC #### [facility] (DEFAULT) [address] [place] [address] Ketones Ql (U) Trace Abnormal Negative [facility] Comment on above: Order Comment: For i ndwelling catheters, specimen collection is acceptable on catheter day 1 and 2 only. ? Performed By: #### T YPEC #### [facility] (DEFAULT) [address] [place] [address] Leukocyte esterase Test strip Ql (U) Large Abnormal Negative [facility] Comment on above: Order Comment: For i ndwelling catheters, specimen collection is acceptable on catheter day 1 and 2 only. ? Performed By: #### T YPEC #### [facility] (DEFAULT) [address] [place] [address] Nitrites Urine Positive Abnormal Negative [facility] Comment on above: Order Comment: For i ndwelling catheters, specimen collection is acceptable on catheter day 1 and 2 only. ? Performed By: #### T YPEC #### [facility] (DEFAULT) [address] [address] pH (U) 7.0 [pH] Normal 5.0-7.0 [facility] Comment on above: Order Comment: For i ndwelling catheters, specimen collection is acceptable on catheter day 1 and 2 only. ? Performed By: #### T YPEC #### [facility] (DEFAULT) [address] [address] Protein Urine Trace Abnormal Negative [facility] Comment on above: Order Comment: For i ndwelling catheters, specimen collection is acceptable on catheter day 1 and 2 only. ? Performed By: #### T YPEC #### [facility] (DEFAULT) [address] [address] RBC Urine 6-10 Abnormal 0-2 [facility] Comment on above: Order Comment: For i ndwelling catheters, specimen collection is acceptable on catheter day 1 and 2 only. ? Performed By: #### T YPEC #### [facility] (DEFAULT) [address] [address] Specific [place] Urine 1.023 Normal 1.001-1.035 [facility] Comment on above: Order Comment: For i ndwelling catheters, specimen collection is acceptable on catheter day 1 and 2 only. ? Performed By: #### T YPEC #### [facility] (DEFAULT) [address] [address] Squamous/Epithelial Cells, Urine 0-2/hpf Normal 0-2/hpf, 3-5/hpf = 1+ [facility] Comment on above: Order Comment: For i ndwelling catheters, specimen collection is acceptable on catheter day 1 and 2 only. ? Performed By: #### T YPEC #### [facility] (DEFAULT) [address] [address] Urobilinogen Urine 1.0 E.U./dL Normal 0.2 E.U/d L, 1.0 E.U/dL [facility] Comment on above: Order Comment: For i ndwelling catheters, specimen collection is acceptable on catheter day 1 and 2 only. ? Performed By: #### T YPEC #### [facility] (DEFAULT) [address] [address] WBC LM.HPF (Urine sed) [#/Area] /[HPF] Abnormal 0 - 5 [facility] Comment on above: Order Comment: For i ndwelling catheters, specimen collection is acceptable on catheter day 1 and 2 only. ? Performed By: #### T YPEC #### [facility] (DEFAULT) [address] [address] URINE CULTUREon 08-08-2024 Amikacin [Susceptibility] <= Invalid Interpretation Code [facility] Comment on above: Order Comment: [...] ? Performed By: #### T YPEC #### [facility] (DEFAULT) [address] [address] Ampicillin [Susceptibility] >=32 Resistant [facility] Comment on above: Order Comment: [...] ? Performed By: #### T YPEC #### [facility] [facility] (DEFAULT) [address] [address] Ampicillin+Sulbactam [Susceptibility] >=32 Resistant [facility] Comment on above: Order Comment: [...] ? Performed By: #### T YPEC #### [facility] (DEFAULT) [address] [address] ceFAZolin [Susceptibility] >= Resistant [facility] Comment on above: Order Comment: [...] cefdinir. Performed By: #### T YPEC #### [facility] (DEFAULT) [address] [address] Cefepime [Susceptibility] <= Invalid Interpretation Code [facility] Comment on above: Order Comment: [...] Performed By: #### T YPEC #### [facility] (DEFAULT) [address] [address] cefTRIAXone [Susceptibility] <= Invalid Interpretation Code [facility] Comment on above: Order Comment: [...] Performed By: #### T YPEC #### [facility] (DEFAULT) [address] [place] [address] Ciprofloxacin [Susceptibility] >= Resistant [facility] Comment on above: Order Comment: [...] Performed By: #### T YPEC #### [facility] (DEFAULT) [address] [address] Ertapenem [Susceptibility] <= Invalid Interpretation Code [facility] Comment on above: Order Comment: [...] ? Performed By: #### T YPEC #### [facility] (DEFAULT) [address] [address] Gentamicin [Susceptibility] <= Invalid Interpretation Code [facility] Comment on above: Order Comment: [...] Performed By: #### T YPEC #### [facility] (DEFAULT) [address] [address] levoFLOXacin [Susceptibility] >= Resistant [facility] Comment on above: Order Comment: [...] Performed By: #### T YPEC #### [facility] (DEFAULT) [address] [address] Nitrofurantoin [Susceptibility] 128 ug/mL Resistant [facility] Comment on above: Order Comment: [...] Performed By: #### T YPEC #### [facility] (DEFAULT) [address] [address] Piperacillin+Tazobactam [Susceptibility] 8 ug/mL Invalid Interpretation Code [facility] Comment on above: Order Comment: [...] Performed By: #### T YPEC #### [facility] (DEFAULT) [address] [place] [address] Trimethoprim+Sulfametho xazole [Susceptibility] <= Invalid Interpretation Code [facility] Comment on above: Order Comment: [...] ? Performed By: #### T YPEC #### [facility] (DEFAULT) [address] [place] [address] CBC,PLATELETSon 08-07-2024 Erythrocyte distribution width (RBC) [Ratio] 13.9 % 10.8 - 14.9 % [facility] Hematocrit (Bld) [Volume fraction] 43.1 % 34.9 - 44.3 % [facility] Hemoglobin (Bld) [Mass/Vol] 13.7 g/dL 11.4 - 15.2 g/dL [facility] Interpretation and review of laboratory results Abnormal [facility] MCH (RBC) [Entitic mass] 29.6 pg 25.9 - 33.9 pg [facility] MCHC (RBC) [Mass/Vol] 31.8 g/dL 31.4 - 35.9 g/dL [facility] MCV (RBC) [Entitic vol] 93.1 fL 79.6 - 97.7 fL [facility] Platelet mean volume (Bld) [Entitic vol] 11.1 fL 8.5 - 12.2 fL [facility] Platelets (Bld) [#/Vol] 214 10*3/uL 150 - 393 K/uL [facility] RBC (Bld) [#/Vol] 4.63 10*6/uL [facility] WBC (Bld) [#/Vol] 11.3 10*3/uL High 3.99 - 11.19 K/uL [facility] CHEM 7 (LYTES,BUN,CREA,GLUC) on 08-07-2024 Anion gap [Moles/Vol] 13 mmol/L 7 - 17 mmol/L [facility] Chloride [Moles/Vol] 105 mmol/L 98 - 10 8 mmol/L [facility] CO2 [Moles/Vol] 28 mmol/L 21 - 31 mmol/L [facility] Creatinine [Mass/Vol] 1.19 mg/dL 0.50 - 1.20 mg/dL [facility] eGFR, CKD-EPI, Female 47 Low - PINF [facility] Glucose [Mass/Vol] 90 mg/dL 70 - 179 mg/dL [facility] Interpretation and review of laboratory results Abnormal [facility] Osmolality Calc [Osmolality] 304 [facility] Potassium [Moles/Vol] 4.2 mmol/L 3.5 - 5.0 mmol/L [facility] Sodium [Moles/Vol] 142 mmol/L 135 - 145 mmol/L [facility] Urea nitrogen [Mass/Vol] 34 mg/dL High 7 - 25 mg/dL [facility] Urea nitrogen/Creatinine [Mass ratio] 29 mg/mg [facility] GLUCOSE POCon 08-07-2024 Glucose [Mass/Vol] 185 mg/dL High 70 - 179 mg/dL [facility] Interpretation and review of laboratory results Abnormal [facility] POC Sample Type CAPBL [facility] Glucose [Mass/Vol] 106 mg/dL 70 - 179 mg/dL [facility] POC Sample Type CAPBL [facility] Glucose [Mass/Vol] 104 mg/dL 70 - 179 mg/dL [facility] POC Sample Type CAPBL [facility] MAGNESIUMon 08-07-2024 Interpretation and review of laboratory results Normal [facility] Magnesium [Mass/Vol] 1.8 mg/dL 1.6 - 2 .6 mg/dL [facility] No Panel Informationon 08-07 [facility] CBC,PLATELETSon 08-06-2024 Hematocrit (Bld) [Volume fraction] 43.1 % Normal 34.9-44.3 [facility] Comment on above: Performed By: #### X M #### [facility] (DEFAULT) [address] [place] [address] Hemoglobin (Bld) [Mass/Vol] 13.7 g/dL Normal 11.4-15.2 [facility] Comment on above: Performed By: #### X M #### [facility] (DEFAULT) [address] [place] [address] MCV (RBC) [Entitic vol] 93.1 fL Normal 79.6-97.7 [facility] Comment on above: Performed By: #### X M #### [facility] (DEFAULT) [address] [place] [address] Mean Cell Hgb 29.6 pg Normal 25.9-33.9 [facility] Comment on above: Performed By: #### X M #### [facility] (DEFAULT) [address] [place] [address] Mean Cell Hgb Conc 31.8 g/dL Normal 31.4-35.9 [facility] Comment on above: Performed By: #### X M #### [facility] (DEFAULT) [address] [place] [address] Platelet mean volume (Bld) [Entitic vol] 11.1 fL Normal 8.5-12.2 [facility] Comment on above: Performed By: #### X M #### [facility] (DEFAULT) [address] [place] [address] Platelets (Bld) [#/Vol] 214 10*3/uL Normal 150-393 [facility] Comment on above: Performed By: #### X M #### [facility] (DEFAULT) [address] [place] [address] RBC (Bld) [#/Vol] 4.63 10*6/uL Normal 3.91-5.04 [facility] Comment on above: Performed By: #### X M #### [facility] (DEFAULT) [address] [place] [address] RBC Distribution 13.9 % Normal 10.8-14.9 [facility] Comment on above: Performed By: #### X M #### [facility] (DEFAULT) [address] [place] [address] WBC (Bld) [#/Vol] 11.30 10*3/uL High 3.99-11.19 [facility] Comment on above: Performed By: #### X M #### [facility] (DEFAULT) [address] [place] [address] Erythrocyte distribution width (RBC) [Ratio] 13.9 % 10.8 - 14.9 % [facility] Hematocrit (Bld) [Volume fraction] 44 % 34.9 - 44.3 % [facility] Hemoglobin (Bld) [Mass/Vol] 13.9 g/dL 11.4 - 15.2 g/dL [facility] Interpretation and review of laboratory results Abnormal [facility] MCH (RBC) [Entitic mass] 29.1 pg 25.9 - 33.9 pg [facility] MCHC (RBC) [Mass/Vol] 31.6 g/dL 31.4 - 35.9 g/dL [facility] MCV (RBC) [Entitic vol] 92.2 fL 79.6 - 97.7 fL [facility] Platelet mean volume (Bld) [Entitic vol] 10.7 fL 8.5 - 12.2 fL [facility] Platelets (Bld) [#/Vol] 216 10*3/uL 150 - 393 K/uL [facility] RBC (Bld) [#/Vol] 4.77 10*6/uL [facility] WBC (Bld) [#/Vol] 12.14 10*3/uL High 3.99 - 11.19 K/uL [facility] CHEM 7 (LYTES,BUN,CREA,GLUC) on 08-06-2024 Anion gap [Moles/Vol] 13 mmol/L Normal 7-17 [facility] Comment on above: Performed By: #### CAMERON PALACIOS ####[facility] (DEFAULT)[address] [facility] [place] [address] Chloride [Moles/Vol] 105 mmol/L Normal 98-108 [facility] Comment on above: Performed By: #### HEYDI PALACIOS7 ####[facility] (DEFAULT)[address] [facility] [place] [address] CO2 [Moles/Vol] 28 mmol/L Normal 21-31 [facility] Comment on above: Performed By: #### CAMERON PALACIOS ####[facility] (DEFAULT)[address] [place] [address] Creatinine [Mass/Vol] 1.19 mg/dL Normal 0.50-1.20 [facility] Comment on above: Performed By: #### CAMERON PALACIOS ####[facility] (DEFAULT)[address] [place] [address] GFR/1.73 sq M.predicted among non-blacks MDRD (S/P/Bld) [Vol rate/Area] 47 mL/min/{1.73_m2} Low >=60 [facility] Comment on above: Result Comment: Repo rted eGFR is based on the CKD-EPI 2020 equation using creatinine, age, and sex. Performed By: #### CAMERON PALACIOS ####[facility] (DEFAULT)[address] [facility] [place] [address] Glucose [Mass/Vol] 90 mg/dL Normal Nonfastin -179 mg/dL; Fastin-99 [facility] Comment on above: Performed By: #### CAMERON PALACIOS ####[facility] (DEFAULT)[address] [place] [address] Osmolality [Osmolality] 304 mosm/kg Normal 278-305 [facility] Comment on above: Performed By: #### Jaiden NGUYEN CHM7 ####[facility] (DEFAULT)[address] [place] [address] Potassium [Moles/Vol] 4.2 mmol/L Normal 3.5-5.0 [facility] Comment on above: Performed By: #### HEYID PALACIOS7 ####[facility] (DEFAULT)[address] [place] [address] Sodium [Moles/Vol] 142 mmol/L Normal 135-145 [facility] Comment on above: Performed By: #### Jaiden NGUYEN CHM7 ####[facility] (DEFAULT)[address] [place] [address] Urea nitrogen [Mass/Vol] 34 mg/dL High 7-25 [facility] Comment on above: Performed By: #### HEYDI PALACIOS7 ####[facility] (DEFAULT)[address] [place] [address] Urea nitrogen/Creatinine [Mass ratio] 29 mg/mg Normal [facility] Comment on above: Performed By: #### Jaiden NGUYEN CHM7 ####[facility] (DEFAULT)[address] [facility] [place] [address] Anion gap [Moles/Vol] 14 mmol/L 7 - 17 mmol/L [facility] Chloride [Moles/Vol] 107 mmol/L 98 - 10 8 mmol/L [facility] CO2 [Moles/Vol] 27 mmol/L 21 - 31 mmol/L [facility] Creatinine [Mass/Vol] 1.19 mg/dL 0.50 - 1.20 mg/dL [facility] eGFR, CKD-EPI, Female 47 Low - PINF [facility] Glucose [Mass/Vol] 88 mg/dL 70 - 179 mg/dL [facility] Interpretation and review of laboratory results Abnormal [facility] Osmolality Calc [Osmolality] 307 High [facility] Potassium [Moles/Vol] 3.9 mmol/L 3.5 - 5.0 mmol/L [facility] Sodium [Moles/Vol] 144 mmol/L 135 - 145 mmol/L [facility] Urea nitrogen [Mass/Vol] 34 mg/dL High 7 - 25 mg/dL [facility] Urea nitrogen/Creatinine [Mass ratio] 29 mg/mg [facility] GLUCOSE POCon 08-06-2024 Glucose [Mass/Vol] 166 mg/dL 70 - 179 mg/dL [facility] Glucose [Mass/Vol] 106 mg/dL 70 - 179 mg/dL [facility] Glucose [Mass/Vol] 100 mg/dL 70 - 179 mg/dL [facility] POC Sample Type [facility] Glucose [Mass/Vol] 219 mg/dL High 70 - 179 mg/dL [facility] Interpretation and review of laboratory results Abnormal [facility] Glucose [Mass/Vol] 249 mg/dL High 70 - 179 mg/dL [facility] Glucose [Mass/Vol] 178 mg/dL 70 - 179 mg/dL [facility] Glucose [Mass/Vol] 194 mg/dL High 70 - 179 mg/dL [facility] Glucose [Mass/Vol] 93 mg/dL 70 - 179 mg/dL [facility] POC Sample Type [facility] IONIZED CALCIUM, WHOLE BLOOD Ordered By: Zuleika Blunt on 08-06-2024 Calcium.ionized (Bld) [Moles/Vol] 4.72 mg/dL 4.60 - 5.30 mg/dL [facility] Interpretation and review of laboratory results Normal [facility] MAGNESIUMon 08-06-2024 Magnesium [Mass/Vol] 1.8 mg/dL Normal 1.6-2.6 [facility] Comment on above: Performed By: #### [facility] ####[facility] (DEFAULT)[address] [place] [address] Magnesium [Mass/Vol] 2.4 mg/dL 1.6 - 2 .6 mg/dL [facility] No Panel Informationon 08-06 POC Sample Type CAPBL [facility] Interpretation and review of laboratory results Abnormal [facility] POC Sample Type CAPBL [facility] Interpretation and review of laboratory results Normal [facility] PHOSPHATE, INORGANICon 08-06 Phosphate [Mass/Vol] 3.2 mg/dL 2.2 - 4 .6 mg/dL [facility] RF videography Hypopharynx a nd Esophagus Views W liquid and paste contrast PO during swallowingon 08-06-2024 RADIOLOGY RADIOLOGY [facility] Radiology Study observation (narrative) [facility] RF videography Hypopharynx a nd Esophagus Views W liquid and paste contrast PO during swallowingOrdered By: Gerry Resendez on 08-06-2024 [facility] Work Phone: SPEECH MODIFIED BARIUM SWALL OWon 08-06-2024 [facility] XR FLUORO MODIFIED BARIUM SW [...] for specific therapeutic recommendations, please see the diamond cleaner report of the speech pathologist. Examination performed by ARCADIO Nicole, under the direct supervision of Gerry Resendez M.D., who was immediately available on site during the examination. I personally viewed and interpreted these images and I have reviewed and approved this report. Normal [facility] CBC,PLATELETSon 08-05-2024 Hematocrit (Bld) [Volume fraction] 44.0 % Normal 34.9-44.3 [facility] Comment on above: Performed By: #### B LDCULT #### [facility] (DEFAULT) [address] [address] Hemoglobin (Bld) [Mass/Vol] 13.9 g/dL Normal 11.4-15.2 [facility] Comment on above: Performed By: #### B LDCULT #### [facility] (DEFAULT) [address] [address] MCV (RBC) [Entitic vol] 92.2 fL Normal 79.6-97.7 [facility] Comment on above: Performed By: #### B LDCULT #### [facility] (DEFAULT) [address] [address] Mean Cell Hgb 29.1 pg Normal 25.9-33.9 [facility] Comment on above: Performed By: #### B LDCULT #### [facility] (DEFAULT) [address] [address] Mean Cell Hgb Conc 31.6 g/dL Normal 31.4-35.9 [facility] Comment on above: Performed By: #### B LDCULT #### [facility] (DEFAULT) [address] [place] [address] Platelet mean volume (Bld) [Entitic vol] 10.7 fL Normal 8.5-12.2 [facility] Comment on above: Performed By: #### B LDCULT #### [facility] (DEFAULT) [address] [place] [address] Platelets (Bld) [#/Vol] 216 10*3/uL Normal 150-393 [facility] Comment on above: Performed By: #### B LDCULT #### [facility] (DEFAULT) [address] [place] [address] RBC (Bld) [#/Vol] 4.77 10*6/uL Normal 3.91-5.04 [facility] Comment on above: Performed By: #### B LDCULT #### [facility] (DEFAULT) [address] [place] [address] RBC Distribution 13.9 % Normal 10.8-14.9 [facility] Comment on above: Performed By: #### B LDCULT #### [facility] (DEFAULT) [address] [place] [address] WBC (Bld) [#/Vol] 12.14 10*3/uL High 3.99-11.19 [facility] Comment on above: Performed By: #### B LDCULT #### [facility] (DEFAULT) [address] [place] [address] Erythrocyte distribution width (RBC) [Ratio] 13.9 % 10.8 - 14.9 % [facility] Hematocrit (Bld) [Volume fraction] 39.6 % 34.9 - 44.3 % [facility] Hemoglobin (Bld) [Mass/Vol] 12.6 g/dL 11.4 - 15.2 g/dL [facility] Interpretation and review of laboratory results Normal [facility] MCH (RBC) [Entitic mass] 29.3 pg 25.9 - 33.9 pg [facility] MCHC (RBC) [Mass/Vol] 31.8 g/dL 31.4 - 35.9 g/dL [facility] MCV (RBC) [Entitic vol] 92.1 fL 79.6 - 97.7 fL [facility] Platelet mean volume (Bld) [Entitic vol] 10.7 fL 8.5 - 12.2 fL [facility] Platelets (Bld) [#/Vol] 198 10*3/uL 150 - 393 K/uL [facility] RBC (Bld) [#/Vol] 4.3 10*6/uL [facility] WBC (Bld) [#/Vol] 10.61 10*3/uL 3.99 - 11.19 K/uL [facility] Hematocrit (Bld) [Volume fraction] 39.6 % Normal 34.9-44.3 [facility] Comment on above: Performed By: #### H [facility] ####[facility] (DEFAULT)[address] [place] [address] Hemoglobin (Bld) [Mass/Vol] 12.6 g/dL Normal 11.4-15.2 [facility] Comment on above: Performed By: #### H EMO ####[facility] (DEFAULT)[address] [place] [address] MCV (RBC) [Entitic vol] 92.1 fL Normal 79.6-97.7 [facility] Comment on above: Performed By: #### H EMO ####[facility] (DEFAULT)[address] [place] [address] Mean Cell Hgb 29.3 pg Normal 25.9-33.9 [facility] Comment on above: Performed By: #### H EMO ####[facility] (DEFAULT)[address] [place] [address] Mean Cell Hgb Conc 31.8 g/dL Normal 31.4-35.9 [facility] Comment on above: Performed By: #### H EMOGC ####[facility] (DEFAULT)[address] [place] [address] Platelet mean volume (Bld) [Entitic vol] 10.7 fL Normal 8.5-12.2 [facility] Comment on above: Performed By: #### H EMOGC ####[facility] (DEFAULT)[address] [place] [address], [place] [address] Platelets (Bld) [#/Vol] 198 10*3/uL Normal 150-393 [facility] Comment on above: Performed By: #### H EMOGC ####[facility] (DEFAULT)[address] [place] [address] RBC (Bld) [#/Vol] 4.30 10*6/uL Normal 3.91-5.04 [facility] Comment on above: Performed By: #### H EMOGC ####[facility] (DEFAULT)[address] [place] [address] RBC Distribution 13.9 % Normal 10.8-14.9 [facility] Comment on above: Performed By: #### H EMOGC ####[facility] (DEFAULT)[address] [place] [address], [place] [address] WBC (Bld) [#/Vol] 10.61 10*3/uL Normal 3.99-11.19 [facility] Comment on above: Performed By: #### H EMOGC ####[facility] (DEFAULT)[address] [place] [address] CHEM 7 (LYTES,BUN,CREA,GLUC) on 08-05-2024 Anion gap [Moles/Vol] 14 mmol/L Normal 7-17 [facility] Comment on above: Performed By: #### S URGP #### [facility] (DEFAULT) [address] [place] [address] Chloride [Moles/Vol] 107 mmol/L Normal 98-108 [facility] Comment on above: Performed By: #### S URGP #### [facility] (DEFAULT) [address] [place] [address] CO2 [Moles/Vol] 27 mmol/L Normal 21-31 [facility] Comment on above: Performed By: #### S URGP #### [facility] (DEFAULT) [address] [place] [address] Creatinine [Mass/Vol] 1.19 mg/dL Normal 0.50-1.20 [facility] Comment on above: Performed By: #### S URGP #### [facility] (DEFAULT) [address] [place] [address] GFR/1.73 sq M.predicted among non-blacks MDRD (S/P/Bld) [Vol rate/Area] 47 mL/min/{1.73_m2} Low >=60 [facility] Comment on above: Result Comment: Repo rted eGFR is based on the CKD-EPI 2020 equation using creatinine, age, and sex. Performed By: #### S URGP #### [facility] (DEFAULT) [address] [place] [address] Glucose [Mass/Vol] 88 mg/dL Normal Nonfastin -179 mg/dL; Fastin-99 [facility] Comment on above: Performed By: #### S URGP #### [facility] (DEFAULT) [address] [place] [address] Osmolality [Osmolality] 307 mosm/kg High 278-305 [facility] Comment on above: Performed By: #### S URGP #### [facility] (DEFAULT) [address] [place] [address] Potassium [Moles/Vol] 3.9 mmol/L Normal 3.5-5.0 [facility] Comment on above: Performed By: #### S URGP #### [facility] (DEFAULT) [address] [place] [address] Sodium [Moles/Vol] 144 mmol/L Normal 135-145 [facility] Comment on above: Performed By: #### S URGP #### [facility] (DEFAULT) [address] [place] [address] Urea nitrogen [Mass/Vol] 34 mg/dL High 7-25 [facility] Comment on above: Performed By: #### S URGP #### [facility] (DEFAULT) [address] [place] [address] Urea nitrogen/Creatinine [Mass ratio] 29 mg/mg Normal [facility] Comment on above: Performed By: #### S URGP #### [facility] (DEFAULT) [address] [place] [address] Anion gap [Moles/Vol] 14 mmol/L 7 - 17 mmol/L [facility] Chloride [Moles/Vol] 108 mmol/L 98 - 10 8 mmol/L [facility] CO2 [Moles/Vol] 25 mmol/L 21 - 31 mmol/L [facility] Creatinine [Mass/Vol] 1.45 mg/dL High 0.50 - 1.20 mg/dL [facility] eGFR, CKD-EPI, Female 37 Low - PINF [facility] Glucose [Mass/Vol] 242 mg/dL High 70 - 179 mg/dL [facility] Interpretation and review of laboratory results Abnormal [facility] Osmolality Calc [Osmolality] 315 High [facility] Potassium [Moles/Vol] 3.8 mmol/L 3.5 - 5.0 mmol/L [facility] Sodium [Moles/Vol] 143 mmol/L 135 - 145 mmol/L [facility] Urea nitrogen [Mass/Vol] 35 mg/dL High 7 - 25 mg/dL [facility] Urea nitrogen/Creatinine [Mass ratio] 24 mg/mg [facility] Anion gap [Moles/Vol] 14 mmol/L Normal 7-17 [facility] Comment on above: Performed By: #### X M #### [facility] (DEFAULT) [address] [place] [address] Chloride [Moles/Vol] 108 mmol/L Normal 98-108 [facility] Comment on above: Performed By: #### X M #### [facility] (DEFAULT) [address] [place] [address] CO2 [Moles/Vol] 25 mmol/L Normal 21-31 [facility] Comment on above: Performed By: #### X M #### [facility] (DEFAULT) [address] [place] [address]368 Creatinine [Mass/Vol] 1.45 mg/dL High 0.50-1.20 [facility] Comment on above: Performed By: #### X M #### [facility] (DEFAULT) [address] [place] [address] 31815 GFR/1.73 sq M.predicted among non-blacks MDRD (S/P/Bld) [Vol rate/Area] 37 mL/min/{1.73_m2} Low >=60 [facility] Comment on above: Result Comment: Repo rted eGFR is based on the CKD-EPI 2020 equation using creatinine, age, and sex. Performed By: #### X M #### [facility] (DEFAULT) [address] [place] [address] Glucose [Mass/Vol] 242 mg/dL High Nonfastin -179 mg/dL; Fastin-99 [facility] Comment on above: Performed By: #### X M #### [facility] (DEFAULT) [address] [place] [address] 09846 Osmolality [Osmolality] 315 mosm/kg High 278-305 [facility] Comment on above: Performed By: #### X M #### [facility] (DEFAULT) [address] [place] [address] 59187 Potassium [Moles/Vol] 3.8 mmol/L Normal 3.5-5.0 [facility] Comment on above: Performed By: #### X M #### [facility] (DEFAULT) [address] [place] [address] Sodium [Moles/Vol] 143 mmol/L Normal 135-145 [facility] Comment on above: Performed By: #### X M #### [facility] (DEFAULT) [address] [place] [address] Urea nitrogen [Mass/Vol] 35 mg/dL High 7-25 [facility] Comment on above: Performed By: #### X M #### [facility] (DEFAULT) [address] [place] [address] Urea nitrogen/Creatinine [Mass ratio] 24 mg/mg Normal [facility] Comment on above: Performed By: #### X M #### [facility] (DEFAULT) [address] [place] [address] 35824 Cardiac echo study Procedure Ordered By: Ezequiel Figueroa on 08-05-2024 Ao ASC index 1.56 cm/m2 [facility] Work Phone: [phone] Ao peak fidel 1.23 m/s [facility] Work Phone: [phone] Ao SOV index 1.56 cm/m2 [facility] Work Phone: [phone] Ao STJ index 1.36 cm/m2 [facility] Work Phone: [phone] Ao VTI 24.81 cm [facility] Work Phone: [phone] Ascending aorta 2.97 cm [facility] Phone: AV LVOT peak gradient 4 mmHg [facility] Work Phone: AV mean gradient 4 mmHg [facility]: [phone] AV peak gradient 6 mmHG [facility] Work Phone: [phone] AV valve area 2.72 cm2 [facility]: AV Velocity Ratio 0.8 [facility] Work Phone: [phone] MARKUS (continuity Vmax) 2.55 cm2 [facility] Work Phone: [phone] MARKUS (continuity VTI) 2.72 cm2 [facility] Work Phone: [phone] MARKUS index (continuity Vmax) 1.34 m/s [facility] Work Phone: [phone] MARKUS index (continuity VTI) 1.43 cm2/m2 [facility] Work Phone: [phone] Avg e' pk fidel 0.09 m/s [facility] Work Phone: [phone] Body surface area Derived from formula 1.9 m2 [facility] Work Phone: [phone] BP EF 55 % [facility] Work Phone: [phone] DI (Vmax) 0.8 [facility] Work Phone: [phone] DI (VTI) 0.86 m/2 [facility] Work Phone: [phone] e' lateral pk fidel 0.0845 m/s [facility] Work Phone: [phone] e' lateral pk fidel 0.08 m/s [facility] Work Phone: [phone] e' septal pk fidel 0.0953 m/s [facility] Work Phone: [phone] e' septal pk fidel 0.1 m/s [facility] Work Phone: [phone] EF SP 2CH 56 [facility] Work Phone: [phone] EF SP 4CH 51 [facility] Work Phone: [phone] EST RAP 3 mmHg [facility] Work Phone: [phone] EST RVSP 29 mmHg [facility] Work Phone: [phone] FS 31 % [facility] Work Phone: [phone] IVC ostium 1.64 cm [facility] Work Phone: [phone] IVS 1.14 cm [facility] Work Phone: [phone] LA area 4CH 29.07 cm2 [facility] Work Phone: [phone] LA ESV BP (MOD) 86 mL [facility] Work Phone: [phone] LA ESV BP (MOD) index 45 mL/m2 [facility] Work Phone: [phone] LA ESV SP 2CH (MOD) 81 mL [facility] Work Phone: [phone] LA ESV SP 4CH (MOD) 93 [facility] Work Phone: [phone] LV EDV BP 88 mL [facility] Work Phone: [phone] LV EDV SP 2CH 85 mL [facility] Work Phone: [phone] LV EDV SP 4CH 86 mL [facility] Work Phone: [phone] LV ESV BP 40 mL [facility] Work Phone: [phone] LV ESV SP 2CH 37 mL [facility] Work Phone: [phone] LV ESV SP 4CH 42 mL [facility] Work Phone: [phone] LV mass 146.48 g [facility] Work Phone: [phone] LV Mass Index 77.1 g/m2 [facility] Work Phone: [phone] LV RWT 0.56 [facility] Work Phone: [phone] LV stroke volume BP (ml) 48 mL [facility] Work Phone: [phone] LV stroke volume index BP 25.26 mL/m2 [facility] Work Phone: [phone] LVIDD 3.93 cm [facility] Work Phone: [phone] LVIDS 2.7 cm [facility] Work Phone: [phone] LVOT area 3.17 cm2 [facility] Work Phone: [phone] LVOT diameter 2.01 cm [facility] Work Phone: [phone] LVOT peak fidel 0.99 m/s [facility] Work Phone: [phone] LVOT peak VTI 21.3 cm [facility] Work Phone: [phone] LVOT stroke volume 68 cm3 [facility] Work Phone[facility] [phone] LVOT stroke volume index 35.55 ml/m2 [facility] Work Phone: [phone] MV mean gradient 3 mmHg [facility] Work Phone: [phone] MV peak gradient 6 mmHg [facility] Work Phone: [phone] MV valve area by continuity eq 2.61 cm2 [facility] Work Phone: [phone] MV VTI 25.92 cm [facility] Work Phone: [phone] MVA (continuity VTI) 2.6 cm [facility] Work Phone: [phone] OSU AV VTI RATIO PRE STRESS 0.86 [facility] Work Phone: [phone] OSU ECHO LV BIPLANE SYSTOLIC VOLUME INDEX 21.05 mL/m2 [facility] Work Phone: [phone] [facility]SU ECHO LV BP DIASTOLIC VOLUME INDEX 46.32 mL/m2 [facility] Work Phone: [phone] PV mean gradient 3 mmHg [facility] Work Phone: [phone] PV peak gradient 6 mmHg [facility] Work Phone: PV PK FIDEL 1.23 m/s [facility] Work Phone: [phone] PW 1.11 cm [facility] Work Phone: [phone] RA area 4CH (MOD) 22.74 cm2 [facility] Work Phone: [phone] RA vol index 4CH (MOD) 36.32 mL/m2 [facility] Work Phone: Right atrium volume 4 chamber method of disks 69 mL [facility] Work Phone: [phone] RV Area diastolic 17.5 cm2 [facility] Work Phone: RV Area systolic 11.9 cm2 [facility] Work Phone: [phone] RV basal diam 4.56 cm [facility] Work Phone: RV Fractional area change 32 % [facility] Work Phone: RV long diam 6.91 cm [facility] Work Phone: RV mid diam 2.91 cm [facility] Work Phone: RV S' 12.81 cm/s [facility] Work Phone: RVOT peak gradient 5 mmHg [facility] Work Phone: [phone] RVOT peak fidel 1.07 m/s [facility] Work Phone: RVOT peak VTI 20.1 cm [facility] Work Phone: Sinus 2.97 cm [facility] Work Phone: STJ 2.58 cm [facility] Work Phone: Stroke Volume 68 cm/mL [facility] Work Phone: Stroke volume index 36 [facility] Work Phone: [phone] TAPSE 2.08 cm [facility] Work Phone: [phone] TR pk grad 26 mmHg [facility] Work Phone: [phone] TR pk fidel 2.53 m/s [facility] Work Phone: [phone] [facility] Work Phone: [phone] Cardiac echo study Procedure on 08-05-2024 [facility] Radiology Study observation (narrative) [facility] ECHOCARDIOGRAMon 08-05-2024 Echocardiography ? No prior study [...] from the original result were not included. [facility] Facility [facility] Patient Information Patient Name ArmandOctober [...] Reading Providers Reading Role Read Date Ezequiel A Figueroa, DO Echo [place] 08/05/2024 Left Heart Measurements LV - Systole [...] long di (more content not included)... Normal [facility] GLUCOSE POCon 08-05-2024 Glucose [Mass/Vol] 228 mg/dL High 70 - 179 mg/dL [facility] Interpretation and review of laboratory results Abnormal [facility] POC Sample Type CAPBL [facility] IONIZED CALCIUM, WHOLE BLOOD on 08-05-2024 ICA 4.72 mg/dL Normal 4.60-5.30 [facility] Comment on above: Performed By: #### S URGP #### [facility] (DEFAULT) [address] [address] ICA 4.69 mg/dL Normal 4.60-5.30 [facility] Comment on above: Performed By: #### S URGP #### [facility] (DEFAULT) [address] [address] IONIZED CALCIUM, WHOLE BLOOD Ordered By: Jairo Layton on 08-05-2024 Calcium.ionized (Bld) [Moles/Vol] 4.69 mg/dL 4.60 - 5.30 mg/dL [facility] Interpretation and review of laboratory results Normal [facility] MAGNESIUMon 08-05-2024 Magnesium [Mass/Vol] 2.4 mg/dL Normal 1.6-2.6 [facility] Comment on above: Performed By: #### S URGP #### [facility] (DEFAULT) [address] [place] [address]406 Magnesium [Mass/Vol] 1.8 mg/dL 1.6 - 2 .6 mg/dL [facility] Magnesium [Mass/Vol] 1.8 mg/dL Normal 1.6-2.6 [facility] Comment on above: Performed By: #### X M #### [facility] (DEFAULT) [address] [place] [address] No Panel Informationon 08-05 Interpretation and review of laboratory results Normal [facility] PHOSPHATE, INORGANICon 08-05 Phosphorous 3.2 mg/dL Normal 2.2-4.6 [facility] Comment on above: Performed By: #### S URGP #### [facility] (DEFAULT) [address] [place] [address] 70986 Phosphate [Mass/Vol] 2.7 mg/dL 2.2 - 4 .6 mg/dL [facility] Phosphorous 2.7 mg/dL Normal 2.2-4.6 [facility] Comment on above: Performed By: #### X M #### [facility] (DEFAULT) [address] [place] [address]656 [facility] FACTOR AGOrde red By: Madhavi Mcelroy on 08-05-2024 Interpretation and review of laboratory results Abnormal [facility] vWf Ag actual/normal IA (PPP) [Relative mass conc] 230 % High 50 - 180 % [facility] CBC,PLATELETSon 08-04-2024 Erythrocyte distribution width (RBC) [Ratio] 13.7 % 10.8 - 14.9 % [facility] Hematocrit (Bld) [Volume fraction] 40.8 % 34.9 - 44.3 % [facility] Hemoglobin (Bld) [Mass/Vol] 12.7 g/dL 11.4 - 15.2 g/dL [facility] Interpretation and review of laboratory results Abnormal [facility] MCH (RBC) [Entitic mass] 28.7 pg 25.9 - 33.9 pg [facility] MCHC (RBC) [Mass/Vol] 31.1 g/dL Low 31.4 - 35.9 g/dL [facility] MCV (RBC) [Entitic vol] 92.1 fL 79.6 - 97.7 fL [facility] Platelet mean volume (Bld) [Entitic vol] 10.8 fL 8.5 - 12.2 fL [facility] Platelets (Bld) [#/Vol] 228 10*3/uL 150 - 393 K/uL [facility] RBC (Bld) [#/Vol] 4.43 10*6/uL [facility] WBC (Bld) [#/Vol] 11.41 10*3/uL High 3.99 - 11.19 K/uL [facility] Hematocrit (Bld) [Volume fraction] 40.8 % Normal 34.9-44.3 [facility] Comment on above: Performed By: #### H [facility] #### [facility] (DEFAULT) [address] [place] [address] Hemoglobin (Bld) [Mass/Vol] 12.7 g/dL Normal 11.4-15.2 [facility] Comment on above: Performed By: #### H EMO #### [facility] (DEFAULT) [address] [place] [address] MCV (RBC) [Entitic vol] 92.1 fL Normal 79.6-97.7 O [facility] Comment on above: Performed By: #### H [facility] #### [facility] (DEFAULT) [address] [place] [address] Mean Cell Hgb 28.7 pg Normal 25.9-33.9 [facility] Comment on above: Performed By: #### H EMOGC #### [facility] (DEFAULT) [address] [address] Mean Cell Hgb Conc 31.1 g/dL Low 31.4-35.9 [facility] Comment on above: Performed By: #### H EMOGC #### [facility] (DEFAULT) [address] [address] Platelet mean volume (Bld) [Entitic vol] 10.8 fL Normal 8.5-12.2 [facility] Comment on above: Performed By: #### H EMOGC #### [facility] (DEFAULT) [address] [address] Platelets (Bld) [#/Vol] 228 10*3/uL Normal 150-393 [facility] Comment on above: Performed By: #### H EMOGC #### [facility] (DEFAULT) [address] [address] RBC (Bld) [#/Vol] 4.43 10*6/uL Normal 3.91-5.04 [facility] Comment on above: Performed By: #### H EMOGC #### [facility] (DEFAULT) [address] [address] RBC Distribution 13.7 % Normal 10.8-14.9 [facility] Comment on above: Performed By: #### H EMOGC #### [facility] (DEFAULT) [address] [address] WBC (Bld) [#/Vol] 11.41 10*3/uL High 3.99-11.19 [facility] Comment on above: Performed By: #### H EMOGC #### [facility] (DEFAULT) [address] [address] CHEM 7 (LYTES,BUN,CREA,GLUC) Ordered By: Lizette Canseco on 08-04-2024 Anion gap [Moles/Vol] 16 mmol/L 7 - 17 mmol/L [facility] Chloride [Moles/Vol] 109 mmol/L High 98 - 10 8 mmol/L [facility] CO2 [Moles/Vol] 24 mmol/L 21 - 31 mmol/L [facility] Creatinine [Mass/Vol] 1.47 mg/dL High 0.50 - 1.20 mg/dL [facility] eGFR, CKD-EPI, Female 36 Low - PINF [facility] Glucose [Mass/Vol] 181 mg/dL High 70 - 179 mg/dL [facility] Interpretation and review of laboratory results Abnormal [facility] Osmolality Calc [Osmolality] 312 High [facility] Potassium [Moles/Vol] 4 mmol/L 3.5 - 5.0 mmol/L [facility] Sodium [Moles/Vol] 145 mmol/L 135 - 145 mmol/L [facility] Urea nitrogen [Mass/Vol] 26 mg/dL High 7 - 25 mg/dL [facility] Urea nitrogen/Creatinine [Mass ratio] 18 mg/mg [facility] CHEM 7 (LYTES,BUN,CREA,GLUC) on 08-04-2024 Anion gap [Moles/Vol] 16 mmol/L Normal 7-17 [facility] Comment on above: Performed By: #### S URGP #### [facility] (DEFAULT) [address] [place] [address] Chloride [Moles/Vol] 109 mmol/L High 98-108 [facility] Comment on above: Performed By: #### S URGP #### [facility] (DEFAULT) [address] [place] [address] CO2 [Moles/Vol] 24 mmol/L Normal 21-31 [facility] Comment on above: Performed By: #### S URGP #### [facility] (DEFAULT) [address] [place] [address] Creatinine [Mass/Vol] 1.47 mg/dL High 0.50-1.20 [facility] Comment on above: Performed By: #### S URGP #### [facility] (DEFAULT) [address] [place] [address] GFR/1.73 sq M.predicted among non-blacks MDRD (S/P/Bld) [Vol rate/Area] 36 mL/min/{1.73_m2} Low >=60 [facility] Comment on above: Result Comment: Repo rted eGFR is based on the CKD-EPI 2020 equation using creatinine, age, and sex. Performed By: #### S URGP #### [facility] (DEFAULT) [address] [place] [address] Glucose [Mass/Vol] 181 mg/dL High Nonfastin -179 mg/dL; Fastin-99 [facility] Comment on above: Performed By: #### S URGP #### [facility] (DEFAULT) [address] [place] [address] Osmolality [Osmolality] 312 mosm/kg High 278-305 [facility] Comment on above: Performed By: #### S URGP #### [facility] (DEFAULT) [address] [place] [address] Potassium [Moles/Vol] 4.0 mmol/L Normal 3.5-5.0 [facility] Comment on above: Performed By: #### S URGP #### [facility] (DEFAULT) [address] [place] [address] Sodium [Moles/Vol] 145 mmol/L Normal 135-145 [facility] Comment on above: Performed By: #### S URGP #### [facility] (DEFAULT) [address] [place] [address] Urea nitrogen [Mass/Vol] 26 mg/dL High 7-25 [facility] Comment on above: Performed By: #### S URGP #### [facility] (DEFAULT) [address] [place] [address] Urea nitrogen/Creatinine [Mass ratio] 18 mg/mg Normal [facility] Comment on above: Performed By: #### S URGP #### [facility] (DEFAULT) [address] [place] [address] CT HEAD WITHOUT CONTRASTon 0 08-04-2024 CT [...] sinuses are clear. IMPRESSION: Stable exam. Normal [facility] CT Head WO contraston 2024 RADIOLOGY RADIOLOGY [facility] CT Head WO contrastOrdered B y: Chirag Mendenhall on 08-04-2024 [facility] Work Phone: GLUCOSE POCon 08-04-2024 Glucose [Mass/Vol] 227 mg/dL High 70 - 179 mg/dL [facility] Interpretation and review of laboratory results Abnormal [facility] POC Sample Type VENO [facility] Glucose [Mass/Vol] 235 mg/dL High 70 - 179 mg/dL [facility] Interpretation and review of laboratory results Abnormal [facility] POC Sample Type VENO [facility] Glucose [Mass/Vol] 215 mg/dL High 70 - 179 mg/dL [facility] Interpretation and review of laboratory results Abnormal [facility] POC Sample Type CAPBL [facility] Glucose [Mass/Vol] 178 mg/dL 70 - 179 mg/dL [facility] Glucose [Mass/Vol] 157 mg/dL 70 - 179 mg/dL [facility] Glucose [Mass/Vol] 271 mg/dL High 70 - 179 mg/dL [facility] Glucose [Mass/Vol] 267 mg/dL High 70 - 179 mg/dL [facility] Glucose [Mass/Vol] 246 mg/dL High 70 - 179 mg/dL [facility] IONIZED CALCIUM, WHOLE BLOOD Ordered By: Laura Rodriguez on 08-04-2024 Calcium.ionized (Bld) [Moles/Vol] 4.8 mg/dL 4.60 - 5.30 mg/dL [facility] Interpretation and review of laboratory results Normal [facility] IONIZED CALCIUM, WHOLE BLOOD on 08-04-2024 ICA 4.80 mg/dL Normal 4.60-5.30 [facility] Comment on above: Performed By: #### T YPEC #### [facility] (DEFAULT) [address] [place] [address] MAGNESIUMon 08-04-2024 Magnesium [Mass/Vol] 1.9 mg/dL 1.6 - 2 .6 mg/dL [facility] Magnesium [Mass/Vol] 1.9 mg/dL Normal 1.6-2.6 [facility] Comment on above: Performed By: #### X M #### [facility] (DEFAULT) [address] [place] [address] No Panel Informationon 08-04 POC Sample Type CAPBL [facility] Interpretation and review of laboratory results Abnormal [facility] Interpretation and review of laboratory results Normal [facility] PHOSPHATE, INORGANICon 08-04 Phosphate [Mass/Vol] 2.8 mg/dL 2.2 - 4 .6 mg/dL [facility] Phosphorous 2.8 mg/dL Normal 2.2-4.6 [facility] Comment on above: Performed By: #### X M #### [facility] (DEFAULT) [address] [place] [address] SODIUMon 08-04-2024 Interpretation and review of laboratory results Normal [facility] Sodium [Moles/Vol] 142 mmol/L 135 - 145 mmol/L [facility] Sodium [Moles/Vol] 142 mmol/L Normal 135-145 [facility] Comment on above: Order Comment: While on 3% Hypertonic Saline. Performed By: #### S URGP #### [facility] (DEFAULT) [address] [address] Interpretation and review of laboratory results Normal [facility] Sodium [Moles/Vol] 141 mmol/L 135 - 145 mmol/L [facility] Sodium [Moles/Vol] 141 mmol/L Normal 135-145 [facility] Comment on above: Order Comment: 2 [...] bottle. Performed By: #### B LDCULT #### [facility] (DEFAULT) [address] [place] [address] Interpretation and review of laboratory results Normal [facility] Sodium [Moles/Vol] 143 mmol/L 135 - 145 mmol/L [facility] Sodium [Moles/Vol] 143 mmol/L Normal 135-145 [facility] Comment on above: Order Comment: While on 3% Hypertonic Saline. Performed By: #### H EMOGC #### [facility] (DEFAULT) [address] [place] [address] ABORH TYPE RECONFIRMATIONon 08-03-2024 ABO/RH(D) TYPE Negative [facility] ABO/RH(D) TYPE Negative Normal [facility] Comment on above: Performed By: #### T YPEC #### [facility] (DEFAULT) [address] [place] [address] CBC,PLATELETSon 08-03-2024 Erythrocyte distribution width (RBC) [Ratio] 13.2 % 10.8 - 14.9 % [facility] Hematocrit (Bld) [Volume fraction] 42.8 % 34.9 - 44.3 % [facility] Hemoglobin (Bld) [Mass/Vol] 13.5 g/dL 11.4 - 15.2 g/dL [facility] Interpretation and review of laboratory results Normal [facility] MCH (RBC) [Entitic mass] 29.2 pg 25.9 - 33.9 pg [facility] MCHC (RBC) [Mass/Vol] 31.5 g/dL 31.4 - 35.9 g/dL [facility] MCV (RBC) [Entitic vol] 92.4 fL 79.6 - 97.7 fL [facility] Platelet mean volume (Bld) [Entitic vol] 11.2 fL 8.5 - 12.2 fL [facility] Platelets (Bld) [#/Vol] 227 10*3/uL 150 - 393 K/uL [facility] RBC (Bld) [#/Vol] 4.63 10*6/uL [facility] WBC (Bld) [#/Vol] 8.43 10*3/uL 3.99 - 11.19 K/uL [facility] Hematocrit (Bld) [Volume fraction] 42.8 % Normal 34.9-44.3 [facility] Comment on above: Performed By: #### X M #### [facility] (DEFAULT) [address] [place] [address] Hemoglobin (Bld) [Mass/Vol] 13.5 g/dL Normal 11.4-15.2 [facility] Comment on above: Performed By: #### X M #### [facility] (DEFAULT) [address] [place] [address]507 MCV (RBC) [Entitic vol] 92.4 fL Normal 79.6-97.7 O [facility] Comment on above: Performed By: #### X M #### [facility] (DEFAULT) [address] [place] [address] 52332 Mean Cell Hgb 29.2 pg Normal 25.9-33.9 [facility] Comment on above: Performed By: #### X M #### [facility] (DEFAULT) [address] [place] [address] 62182 Mean Cell Hgb Conc 31.5 g/dL Normal 31.4-35.9 [facility] Comment on above: Performed By: #### X M #### [facility] (DEFAULT) [address] [place] [address] 35734 Platelet mean volume (Bld) [Entitic vol] 11.2 fL Normal 8.5-12.2 [facility] Comment on above: Performed By: #### X M #### [facility] (DEFAULT) [address] [place] [address]24 Platelets (Bld) [#/Vol] 227 10*3/uL Normal 150-393 [facility] Comment on above: Performed By: #### X M #### [facility] (DEFAULT) [address] [place] [address] 42495 RBC (Bld) [#/Vol] 4.63 10*6/uL Normal 3.91-5.04 [facility] Comment on above: Performed By: #### X M #### [facility] (DEFAULT) [address] [place] [address] RBC Distribution 13.2 % Normal 10.8-14.9 [facility] Comment on above: Performed By: #### X M #### [facility] (DEFAULT) [address] [place] [address] 24010 WBC (Bld) [#/Vol] 8.43 10*3/uL Normal 3.99-11.19 [facility] Comment on above: Performed By: #### X M #### [facility] (DEFAULT) [address] [place] [address]1951 CHEM 7 (LYTES,BUN,CREA,GLUC) on 08-03-2024 Anion gap [Moles/Vol] 16 mmol/L 7 - 17 mmol/L [facility] Chloride [Moles/Vol] 103 mmol/L 98 - 10 8 mmol/L [facility] CO2 [Moles/Vol] 23 mmol/L 21 - 31 mmol/L [facility] Creatinine [Mass/Vol] 1.35 mg/dL High 0.50 - 1.20 mg/dL [facility] eGFR, CKD-EPI, Female 40 Low - PINF [facility] Glucose [Mass/Vol] 151 mg/dL 70 - 179 mg/dL [facility] Interpretation and review of laboratory results Abnormal [facility] Osmolality Calc [Osmolality] 295 [facility] Potassium [Moles/Vol] 4.3 mmol/L 3.5 - 5.0 mmol/L [facility] Sodium [Moles/Vol] 138 mmol/L 135 - 145 mmol/L [facility] Urea nitrogen [Mass/Vol] 18 mg/dL 7 - 25 mg/dL [facility] Urea nitrogen/Creatinine [Mass ratio] 13 mg/mg [facility] Anion gap [Moles/Vol] 16 mmol/L Normal 7-17 [facility] Comment on above: Performed By: #### S URGP #### [facility] (DEFAULT) [address] [address] Chloride [Moles/Vol] 103 mmol/L Normal 98-108 [facility] Comment on above: Performed By: #### S URGP #### [facility] (DEFAULT) [address] [address] CO2 [Moles/Vol] 23 mmol/L Normal 21-31 [facility] Comment on above: Performed By: #### S URGP #### [facility] (DEFAULT) [address] [address] Creatinine [Mass/Vol] 1.35 mg/dL High 0.50-1.20 [facility] Comment on above: Performed By: #### S URGP #### [facility] (DEFAULT) [address] [address] GFR/1.73 sq M.predicted among non-blacks MDRD (S/P/Bld) [Vol rate/Area] 40 mL/min/{1.73_m2} Low >=60 [facility] Comment on above: Result Comment: Repo rted eGFR is based on the CKD-EPI 2020 equation using creatinine, age, and sex. Performed By: #### S URGP #### [facility] (DEFAULT) [address] [address] Glucose [Mass/Vol] 151 mg/dL Normal Nonfastin -179 mg/dL; Fastin-99 [facility] Comment on above: Performed By: #### S URGP #### [facility] (DEFAULT) [address] [address] Osmolality [Osmolality] 295 mosm/kg Normal 278-305 [facility] Comment on above: Performed By: #### S URGP #### [facility] (DEFAULT) [address] [address] Potassium [Moles/Vol] 4.3 mmol/L Normal 3.5-5.0 [facility] Comment on above: Result Comment: Spec imen slightly hemolyzed. Potassium results may be falsey elevated by more than 0.5 mmol/L. Consider recollection. Performed By: #### S URGP #### [facility] (DEFAULT) [address] [place] [address] Sodium [Moles/Vol] 138 mmol/L Normal 135-145 [facility] Comment on above: Performed By: #### S URGP #### [facility] (DEFAULT) [address] [place] [address]20 Urea nitrogen [Mass/Vol] 18 mg/dL Normal 7-25 [facility] Comment on above: Performed By: #### S URGP #### [facility] (DEFAULT) [address] [place] [address]77 Urea nitrogen/Creatinine [Mass ratio] 13 mg/mg Normal [facility] Comment on above: Performed By: #### S URGP #### [facility] (DEFAULT) [address] [place] [address] CHEST WITH CONTRAST VASCU LAR TRAUMAon [...] have reviewed and approved this report. Normal [facility] CT Cervical spine WO contras ton 08-03-2024 RADIOLOGY RADIOLOGY [facility] CT Cervical spine WO contras tOrdered By: Alissa Chun on 08-03-2024 [facility] Work Phone: CT Chest W contrast Seth RADIOLOGY RADIOLOGY [facility] CT Chest W contrast IVOrdere d By: Kayla Newell on 08-03-2024 [facility] Work Phone: CT HEAD WITHOUT [...] since the MRI from earlier today Normal [facility] CT Head WO contraston 2024 Radiology Study observation (narrative) [facility] RADIOLOGY RADIOLOGY [facility] Radiology Study observation (narrative) [facility] CT ORBITS WITHOUT CONTRASTon 08-03-2024 CT [...] basal ganglia hyperdensity concerning for hemorrhage. Normal [facility] CT Orbit WO contraston 08-03 [facility]ERVICAL WITHOUT CO NTRASTon 08-03-2024 [...] No evidence of acute fractures identified Normal [facility] EXTRA MICROon 08-03-2024 [facility] GLUCOSE POCon 08-03-2024 Glucose [Mass/Vol] 161 mg/dL 70 - 179 mg/dL [facility] POC Sample Type CAPBL [facility] IONIZED CALCIUM, WHOLE BLOOD Ordered By: Alejandra Ness on 08-03-2024 Calcium.ionized (Bld) [Moles/Vol] 4.24 mg/dL Low 4.60 - 5.30 mg/dL [facility] Interpretation and review of laboratory results Abnormal [facility] IONIZED CALCIUM, WHOLE BLOOD on 08-03-2024 ICA 4.24 mg/dL Low 4.60-5.30 [facility] Comment on above: Performed By: #### H EMOGC #### [facility] (DEFAULT) [address] [address] MAGNESIUMon 08-03-2024 Magnesium [Mass/Vol] 2.1 mg/dL 1.6 - 2 .6 mg/dL [facility] Magnesium [Mass/Vol] 2.1 mg/dL Normal 1.6-2.6 [facility] Comment on above: Performed By: #### S URGP #### [facility] (DEFAULT) [address] [address] MR Brain WO contraston 08-03 [facility] MR Cervical spine WO contras ton 08-03-2024 [facility] contras tOrdered By: Kuldeep Tavares on 08-03-2024 [facility] Work Phone: MRI BRAIN WITHOUT [...] tiny 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 Normal [facility] MRI SPINE CERVICAL WITHOUT C [...] have reviewed and approved this report. Normal [facility] NT-PRO B-TYPE NATRIURETIC PE PTIDEon 08-03-2024 Interpretation and review of laboratory results Abnormal [facility] Natriuretic peptide.B prohormone N-Terminal IA [Mass/Vol] 1115 pg/mL High NINF - 540 pg/mL [facility] No Panel Informationon 08-03 RADIOLOGY RADIOLOGY [facility] Interpretation and review of laboratory results Normal [facility] No Panel InformationOrdered By: Richard Sánchez on 08-03-2024 [facility] Work Phone: PHOSPHATE, INORGANICon 08-03 Phosphate [Mass/Vol] 3.5 mg/dL 2.2 - 4 .6 mg/dL [facility] Phosphorous 3.5 mg/dL Normal 2.2-4.6 [facility] Comment on above: Performed By: #### S URGP #### [facility] (DEFAULT) [address] [place] [address] SCREEN: MRSA/MSSAOrdered By: Gail Collado on 08-03-2024 Interpretation and review of laboratory results Normal [facility] Methicillin Resistant S. Aureus By Pcr Negative Negative [facility] Staphylococcus Aureus By Pcr Negative Negative [facility] SODIUMon 08-03-2024 Interpretation and review of laboratory results Normal [facility] Sodium [Moles/Vol] 139 mmol/L 135 - 145 mmol/L [facility] Sodium [Moles/Vol] 139 mmol/L Normal 135-145 [facility] Comment on above: Order Comment: While on 3% Hypertonic Saline. Performed By: #### N AO ####[facility] (DEFAULT)[address] [place] [address] Interpretation and review of laboratory results Abnormal [facility] Sodium [Moles/Vol] 134 mmol/L Low 135 - 145 mmol/L [facility] Sodium [Moles/Vol] 134 mmol/L Low 135-145 [facility] Comment on above: Order Comment: While on 3% Hypertonic Saline. Performed By: #### H EMO #### [facility] (DEFAULT) [address] [place] [address] XR ABDOMEN 1 VIEW PORTABLEon 08-03-2024 XR [...] proximal second portion of the duodenum. Normal [facility] XR Abdomen Single viewon RADIOLOGY RADIOLOGY [facility] Radiology [facility]narrative[facility] XR Abdomen Single viewOrdere d By: Huey Gibson on 08-03-2024 [facility] XR ELBOW RIGHT 2 VIEWSon XR ELBOW RIGHT 2 VIEWS EXAM: XR ELBOW RI GHT 2 VIEWS, XR HUMERUS RIGHT 2+ VIEWS, XR WRIST RIGHT 3+ VIEWS, 08/02/2024 23:24 PM (accession [id number]), 08/02/2024 23:24 PM (accession [id number]), 08/02/2024 23:23 PM (accession [id number]) COMPARISON: No prior studies available for comparison. [...] dislocation. IMPRESSION: No acute osseous abnormality. Normal [facility] XR HUMERUS RIGHT 2+ VIEWSon 08-03-2024 XR HUMERUS RIGHT 2+ VIEWS EXAM: XR ELBOW RIGHT 2 VIEWS, XR HUMERUS RIGHT 2+ VIEWS, XR WRIST RIGHT 3+ VIEWS, 08/02/2024 23:24 PM (accession [id number]), 08/02/2024 23:24 PM (accession [id number]), 08/02/2024 23:23 PM (accession [id number]) COMPARISON: No prior studies available for comparison. [...] or dislocation. IMPRESSION: No acute osseous abnormality. [facility] XR WRIST RIGHT 3+ VIEWSon XR WRIST RIGHT 3+ VIEWS EXAM: XR ELBOW R IGHT 2 VIEWS, XR HUMERUS RIGHT 2+ VIEWS, XR WRIST RIGHT 3+ VIEWS, 08/02/2024 23:24 PM (accession [id number]), 08/02/2024 23:24 PM (accession [id number]), 08/02/2024 23:23 PM (accession [id number]) COMPARISON: No prior studies available for comparison. [...] or dislocation. IMPRESSION: No acute osseous abnormality. [facility] 12 Lead EKGon 08-02-2024 12 Lead EKG [facility] [address] [place] [address] 12 Lead EKG 08/02/24 1309 MR#: [id number] Acct: [id number] Name: LINDSAY ACUNA Rep #: [id number] : 1945 78 From: Mj Benavides MD [...] Abnormal ECG Confirmed by MAKAYLA LAWSON, MJ ([id number]), medical transcription editor NAIMA BEARDEN ([id number]) on 08/05/2024 6:47:07 AM Referred By: Confirmed By: MJ BENAVIDES MD 08/05/24 0647 Date Mj Benavides MD CC: Dr. Pieter Morgan MD; Dr. Kameron Caruso MD Signed Normal [facility] Absolute lymphocyte countOrd ered By: Pieter Morgan on 08-02-2024 Lymphocytes Auto (Unsp spec) [#/Vol] 1.56 10*3/uL 0.83-4.51 [facility] Absolute neutrophil countOrd ered By: Pieter Morgan on 08-02-2024 Neutrophils (Bld) [#/Vol] 6.2 10*3/uL 2.0-7.7 [facility] Activated partial thrombopla stin time (aPTT) in platelet poor plasma by coagulation aOrdered By: Pieter Mrogan on 08-02-2024 aPTT Coag (PPP) [Time] 28.4 s 24.1-36.2 [facility] Anion gap in Serum or Plasma Ordered By: Pieter Morgan on 08-02-2024 Anion gap [Moles/Vol] 12 mmol/L 5-15 [facility] Automated lymphocyte count a s percentage of total leukocytesOrdered By: Pieter Morgan on 08-02-2024 Lymphocytes/100 WBC Auto (Unsp spec) 17.9 % Low 19- [facility] BUN/creatinine ratioOrdered By: Pieter Morgan on 08-02-2024 Urea nitrogen/Creatinine [Mass ratio] 11.6 mg/mg 10- [facility] Basic Metabolic Profile (BMP )on 08-02-2024 BUN/CRE 11.6 RATIO Normal 10-20 [facility] Comment on above: Performed By: #### L 300.4310, L501.4021, L300.3900, L500.2500, L100.0100 #### [facility] [address] [place], [address] Calcium [Mass/Vol] 9.0 mg/dL Normal 7.6-11.0 [facility] Comment on above: Performed By: #### L 300.4310, L501.4021, L300.3900, L500.2500, L100.0100 #### [facility] [address] [place], [address] Chloride [Moles/Vol] 98 mmol/L Normal 98-108 [facility] Comment on above: Performed By: #### L 300.4310, L501.4021, L300.3900, L500.2500, L100.0100 #### [facility] [address] [place], [address] CO2 [Moles/Vol] 22.0 mmol/L Normal 21.0-32.0 [facility] Comment on above: Performed By: #### L 300.4310, L501.4021, L300.3900, L500.2500, L100.0100 #### [facility] [address] [place], [address] Creatinine [Mass/Vol] 1.74 mg/dL High 0.70-1.20 [facility] Comment on above: Performed By: #### L 300.4310, L501.4021, L300.3900, L500.2500, L100.0100 #### [facility] [address] [place], [address] ECRCL 27.14 ml/min Low 50-250 [facility] Comment on above: Performed By: #### L 300.4310, L501.4021, L300.3900, L500.2500, L100.0100 #### [facility] [address] [place], [address] GAP 12 Normal 5-15 [facility] Comment on above: Performed By: #### L 300.4310, L501.4021, L300.3900, L500.2500, L100.0100 #### [facility] [address] [place], [address] GFR/1.73 sq M.predicted among non-blacks MDRD (S/P/Bld) [Vol rate/Area] 29 mL/min/{1.73_m2} Low >60 [facility] Comment on above: Result Comment: mL/m in/1.73m2 CKD-EPI Creatinine Equation (2020) Performed By: #### L 300.4310, L501.4021, L300.3900, L500.2500, L100.0100 #### [facility] [address] [place], [address] Glucose [Mass/Vol] 235 mg/dL High 70-99 [facility] Comment on above: Performed By: #### L 300.4310, L501.4021, L300.3900, L500.2500, L100.0100 #### [facility] [address] [place], [address] Potassium [Moles/Vol] 4.2 mmol/L Normal 3.3-5.1 [facility] Comment on above: Performed By: #### L 300.4310, L501.4021, L300.3900, L500.2500, L100.0100 #### [facility] [address] [place], [address] Sodium [Moles/Vol] 132 mmol/L Low 133-145 [facility] Comment on above: Performed By: #### L 300.4310, L501.4021, L300.3900, L500.2500, L100.0100 #### [facility] [address] [place], [address] Urea nitrogen [Mass/Vol] 20 mg/dL High 4-19 [facility] Comment on above: Performed By: #### L 300.4310, L501.4021, L300.3900, L500.2500, L100.0100 #### [facility] [address] [place], [address] Basophil percentageOrdered B y: Pieter Morgan on 08-02-2024 Basophils/100 WBC (Bld) 0.5 % 0-1 [facility] CBC W/Diff, Automatedon 07-14 Absolute Lymph 1.56 X10 3/uL Normal 0.83-4.51 [facility] Comment on above: Performed By: #### L 300.4310, L501.4021, L300.3900, L500.2500, L100.0100 #### [facility] [address] [place], [address] Absolute Neut 6.2 X10 3/uL Normal 2.0-7.7 [facility] Comment on above: Performed By: #### L 300.4310, L501.4021, L300.3900, L500.2500, L100.0100 #### [facility] [address] [place], [address] Basophils/100 WBC (Bld) 0.5 % Normal 0-1 [facility] Comment on above: Performed By: #### L 300.4310, L501.4021, L300.3900, L500.2500, L100.0100 #### [facility] [address] [place], [address] Eosinophils/100 WBC (Bld) 1.0 % Normal 0-5 [facility] Comment on above: Performed By: #### L 300.4310, L501.4021, L300.3900, L500.2500, L100.0100 #### [facility] [address] [place], [address] Erythrocyte distribution width (RBC) [Ratio] 13.3 % Normal 11.6-14.6 [facility] Comment on above: Performed By: #### L 300.4310, L501.4021, L300.3900, L500.2500, L100.0100 #### [facility] [address] [place], [address] Hematocrit (Bld) [Volume fraction] 42.0 % Normal 37-47 [facility] Comment on above: Performed By: #### L 300.4310, L501.4021, L300.3900, L500.2500, L100.0100 #### [facility] [address] [place], [address] Hemoglobin (Bld) [Mass/Vol] 13.8 g/dL Normal 12.0-15.0 [facility] Comment on above: Performed By: #### L 300.4310, L501.4021, L300.3900, L500.2500, L100.0100 #### [facility] [address] [place], [address] IG% 0.300 Normal 0.0-0.9 [facility] Comment on above: Result Comment: IG% - Immature Granulocytes (promyelocytes, myelocytes and metamyelocytes) > 1% indicates that a LEFT SHIFT is Present. Performed By: #### L 300.4310, L501.4021, L300.3900, L500.2500, L100.0100 #### [facility] [address] [place], [address] Lymphocytes/100 WBC (Bld) 17.9 % Low 19-41 [facility] Comment on above: Performed By: #### L 300.4310, L501.4021, L300.3900, L500.2500, L100.0100 #### [facility] [address] [place], [address] MCH (RBC) [Entitic mass] 30.3 pg Normal 27.0-32.0 [facility] Comment on above: Performed By: #### L 300.4310, L501.4021, L300.3900, L500.2500, L100.0100 #### [facility] [address] [place], [address] MCHC (RBC) [Mass/Vol] 32.9 g/dL Normal 32-36 [facility] Comment on above: Performed By: #### L 300.4310, L501.4021, L300.3900, L500.2500, L100.0100 #### [facility] [address] [place], [address] MCV (RBC) [Entitic vol] 92.1 fL Normal 81-99 [facility] Comment on above: Performed By: #### L 300.4310, L501.4021, L300.3900, L500.2500, L100.0100 #### [facility] [address] [place], [address] Monocytes/100 WBC (Bld) 8.9 % Normal 0-10 [facility] Comment on above: Performed By: #### L 300.4310, L501.4021, L300.3900, L500.2500, L100.0100 #### [facility] [address] [place], [address] Neutrophils/100 WBC (Bld) 71.4 % High 47-70 [facility] Comment on above: Performed By: #### L 300.4310, L501.4021, L300.3900, L500.2500, L100.0100 #### [facility] [address] [place], [address] Nucleated RBC (Bld) [#/Vol] 0 10*3/uL Normal 0-5 [facility] Comment on above: Performed By: #### L 300.4310, L501.4021, L300.3900, L500.2500, L100.0100 #### [facility] [address] [place], [address] Platelet mean volume (Bld) [Entitic vol] 10.7 fL Normal 6.2-12.0 [facility] Comment on above: Performed By: #### L 300.4310, L501.4021, L300.3900, L500.2500, L100.0100 #### [facility] [address] [place], [address] Platelets (Bld) [#/Vol] 214 10*3/uL Normal 150-450 [facility] Comment on above: Performed By: #### L 300.4310, L501.4021, L300.3900, L500.2500, L100.0100 #### [facility] [address] [place], [address] RBC (Bld) [#/Vol] 4.56 10*6/uL Normal 4.2-5.4 [facility] Comment on above: Performed By: #### L 300.4310, L501.4021, L300.3900, L500.2500, L100.0100 #### [facility] [address] [place], [address] RDW SD 45.3 fl High 35.1-43.9 [facility] Comment on above: Performed By: #### L 300.4310, L501.4021, L300.3900, L500.2500, L100.0100 #### [facility] [address] [place], [address] WBC (Bld) [#/Vol] 8.7 10*3/uL Normal 4.4-11.0 [facility] Comment on above: Performed By: #### L 300.4310, L501.4021, L300.3900, L500.2500, L100.0100 #### [facility] [address] [place], [address] CBC,PLATELETSon 08-02-2024 Erythrocyte distribution width (RBC) [Ratio] 13.3 % 10.8 - 14.9 % [facility] Hematocrit (Bld) [Volume fraction] 43.8 % 34.9 - 44.3 % [facility] Hemoglobin (Bld) [Mass/Vol] 14 g/dL 11.4 - 15.2 g/dL [facility] Interpretation and review of laboratory results Normal [facility] MCH (RBC) [Entitic mass] 29.4 pg 25.9 - 33.9 pg [facility] MCHC (RBC) [Mass/Vol] 32 g/dL 31.4 - 35.9 g/dL [facility] MCV (RBC) [Entitic vol] 92 fL 79.6 - 97.7 fL [facility] Platelet mean volume (Bld) [Entitic vol] 10.8 fL 8.5 - 12.2 fL [facility] Platelets (Bld) [#/Vol] 245 10*3/uL 150 - 393 K/uL [facility] RBC (Bld) [#/Vol] 4.76 10*6/uL [facility] WBC (Bld) [#/Vol] 8.16 10*3/uL 3.99 - 11.19 K/uL [facility] Hematocrit (Bld) [Volume fraction] 43.8 % Normal 34.9-44.3 [facility] Comment on above: Performed By: #### B LDCULT #### [facility] (DEFAULT) [address] [place] [address] Hemoglobin (Bld) [Mass/Vol] 14.0 g/dL Normal 11.4-15.2 [facility] Comment on above: Performed By: #### B LDCULT #### [facility] (DEFAULT) [address] [place] [address] MCV (RBC) [Entitic vol] 92.0 fL Normal 79.6-97.7 [facility] Comment on above: Performed By: #### B LDCULT #### [facility] (DEFAULT) [address] [place] [address] Mean Cell Hgb 29.4 pg Normal 25.9-33.9 [facility] Comment on above: Performed By: #### B LDCULT #### [facility] (DEFAULT) [address] [address] Mean Cell Hgb Conc 32.0 g/dL Normal 31.4-35.9 [facility] Comment on above: Performed By: #### B LDCULT #### [facility] (DEFAULT) [address] [place] [address] Platelet mean volume (Bld) [Entitic vol] 10.8 fL Normal 8.5-12.2 [facility] [facility] Comment on above: Performed By: #### B LDCULT #### [facility] (DEFAULT) [address] [address] Platelets (Bld) [#/Vol] 245 10*3/uL Normal 150-393 [facility] Comment on above: Performed By: #### B LDCULT #### [facility] (DEFAULT) [address] [address] RBC (Bld) [#/Vol] 4.76 10*6/uL Normal 3.91-5.04 [facility] Comment on above: Performed By: #### B LDCULT #### [facility] (DEFAULT) [address] [place] [address] RBC Distribution 13.3 % Normal 10.8-14.9 [facility] Comment on above: Performed By: #### B LDCULT #### [facility] (DEFAULT) [address] [place] [address] WBC (Bld) [#/Vol] 8.16 10*3/uL Normal 3.99-11.19 [facility] Comment on above: Performed By: #### B LDCULT #### [facility] (DEFAULT) [address] [place] [address] CHEM 7 (LYTES,BUN,CREA,GLUC) on 08-02-2024 Anion gap [Moles/Vol] 16 mmol/L 7 - 17 mmol/L [facility] Chloride [Moles/Vol] 105 mmol/L 98 - 10 8 mmol/L [facility] CO2 [Moles/Vol] 22 mmol/L 21 - 31 mmol/L [facility] Creatinine [Mass/Vol] 1.37 mg/dL High 0.50 - 1.20 mg/dL [facility] eGFR, CKD-EPI, Female 39 Low - PINF [facility] Glucose [Mass/Vol] 210 mg/dL High 70 - 179 mg/dL [facility] Osmolality Calc [Osmolality] 299 [facility] Potassium [Moles/Vol] 3.7 mmol/L 3.5 - 5.0 mmol/L [facility] Sodium [Moles/Vol] 139 mmol/L 135 - 145 mmol/L [facility] Urea nitrogen [Mass/Vol] 18 mg/dL 7 - 25 mg/dL [facility] Urea nitrogen/Creatinine [Mass ratio] 13 mg/mg [facility] Anion gap [Moles/Vol] 16 mmol/L Normal 7-17 [facility] Comment on above: Performed By: #### H EMOGC #### [facility] (DEFAULT) [address] [place] [address] Chloride [Moles/Vol] 105 mmol/L Normal 98-108 [facility] Comment on above: Performed By: #### H EMOGC #### [facility] (DEFAULT) [address] [place] [address] CO2 [Moles/Vol] 22 mmol/L Normal 21-31 [facility] Comment on above: Performed By: #### [facility] #### [facility] (DEFAULT) [address] [place] [address] Creatinine [Mass/Vol] 1.37 mg/dL High 0.50-1.20 [facility] Comment on above: Performed By: #### H [facility] #### [facility] (DEFAULT) [address] [place] [address] GFR/1.73 sq M.predicted among non-blacks MDRD (S/P/Bld) [Vol rate/Area] 39 mL/min/{1.73_m2} Low >=60 [facility] Comment on above: Result Comment: Repo rted eGFR is based on the CKD-EPI 2020 equation using creatinine, age, and sex. Performed By: #### H [facility] #### [facility] (DEFAULT) [address] [place] [address] Glucose [Mass/Vol] 210 mg/dL High Nonfastin -179 mg/dL; Fastin-99 [facility] Comment on above: Performed By: #### [facility] #### [facility] (DEFAULT) [address] [place] [address] Osmolality [Osmolality] 299 mosm/kg Normal 278-305 [facility] Comment on above: Performed By: #### H [facility] #### [facility] (DEFAULT) [address] [place] [address] Potassium [Moles/Vol] 3.7 mmol/L Normal 3.5-5.0 [facility] Comment on above: Performed By: #### H [facility] #### [facility] (DEFAULT) [address] [place] [address] Sodium [Moles/Vol] 139 mmol/L Normal 135-145 [facility] Comment on above: Performed By: #### H EMOGC #### [facility] (DEFAULT) [address] [place] [address] Urea nitrogen [Mass/Vol] 18 mg/dL Normal 12-06 [facility] Comment on above: Performed By: #### H EMO #### [facility] (DEFAULT) [address] [place] [address] Urea nitrogen/Creatinine [Mass ratio] 13 mg/mg Normal [facility] Comment on above: Performed By: #### H EMO #### [facility] (DEFAULT) [address] [place] [address] CT ABDOMEN/PELVIS WITH CONTR AST VASCULAR TRAUMAon [...] grade: None. Kidney trauma grade: None. Normal [facility] CT Abdomen and Pelvis W cont rast Seth 08-02-2024 RADIOLOGY RADIOLOGY [facility] CT Abdomen and Pelvis W cont rast IVOrdered By: Edson Head on 08-02-2024 [facility]: CT Cervical spine WO contras ton 08-02-2024 Radiology Study observation (narrative) [facility] CT Orbit WO contraston 08-02 [facility] Carbon dioxide, total [Moles /volume] in Central venous bloodOrdered By: Pieter Morgan on 08-02-2024 CO2 [Moles/Vol] 22.0 mmol/L 21.0-32.0 [facility] Chloride assayOrdered By: Racheal Morgan on 08-02-2024 Chloride [Moles/Vol] 98 mmol/L 98-108 [facility] Emergency Department Summary on 08-02-2024 Emergency Department Summary [facility] Medical Records Department [address] [place] [address] Emergency Department Summary 08/02/24 MR#: [id number] Acct: [id number] Name: LINDSAY ACUNA Rep #: [id number] : 1945 78 From: Pieter Morgan MD [...] the EMR. states they returned home from [facility] about 1.5-2 weeks ago, and they both had colds. He is better, but she is "on round 2." [facility] Medical History Paroxysmal atrial fibrillation with [...] normal respir (more content not included)... Normal [facility] Eosinophil percentageOrdered By: Pieter Morgan on 08-02-2024 Eosinophils/100 WBC (Bld) 1.0 % 0-5 [facility] Erythrocyte distribution wid th ratioOrdered By: Pieter Morgan on 08-02-2024 Erythrocyte distribution width (RBC) [Ratio] 13.3 % 11.6-14.6 [facility] Erythrocyte distribution wid th standard deviationOrdered By: Pieter Morgan on 08-02-2024 Erythrocyte distribution width (RBC) [Entitic vol] 45.3 fL High 35.1-43.9 [facility] Erythrocyte distribution width (RBC) [Ratio] 45.3 fl High 35.1-43.9 [facility] Estimation of creatinine mackenzie aranceOrdered By: Pieter Morgan on 08-02-2024 Estimated Creatinine Clearance Calc 27.14 ml/min Low 50-250 [facility] GFR/1.73 sq M.predicted lana g non-blacks MDRD (S/P/Bld) [Vol rate/Area]Ordered By: Pieter Morgan on 08-02-2024 Estimated GFR (MDRD) Non-Af Amer 29 Low >60 [facility] Comment on above: mL/min/1.73m2 CKD-EP I Creatinine Equation (2020) Glomerular filtration rate ( GFR) estimation/1.73 sq m using serum, plasma, or whole bOrdered By: Pieter Morgan on 08-02-2024 GFR/1.73 sq M.predicted among non-blacks MDRD (S/P/Bld) [Vol rate/Area] 29 mL/min/{1.73_m2} Low >60 [facility] Comment on above: mL/min/1.73m2 CKD-EP I Creatinine Equation (2020) HEMOGLOBIN A1Con 08-02-2024 Average glucose Estimated from glycated hemoglobin (Bld) [Mass/Vol] 177 mg/dL [facility] HbA1c (Bld) [Mass fraction] 7.8 % High 4.7 - 5.6 % [facility] Interpretation and review of laboratory results Abnormal [facility] Glucose [Mass/Vol] 177 mg/dL Normal [facility] Comment on above: Performed By: #### H [facility] #### [facility] (DEFAULT) [address] [place] [address] Hemoglobin A1C HPLC 7.8 % High 4.7-5.6 [facility] Comment on above: Performed By: #### H [facility] #### [facility] (DEFAULT) [address] [place] [address] HEPATIC FUNCTION PANELon Albumin [Mass/Vol] 3.5 g/dL 3.5 - 5.0 g/dL [facility] ALP [Catalytic activity/Vol] 117 U/L 32 - 126 U/L [facility] ALT [Catalytic activity/Vol] 10 U/L 9 - 48 U/L [facility] AST [Catalytic activity/Vol] 17 U/L 10 - 39 U/L [facility] Bilirubin [Mass/Vol] 0.6 mg/dL NINF - 1.5 mg/dL [facility] Bilirubin.direct [Mass/Vol] 0.1 mg/dL NINF - 0.3 mg/dL [facility] Protein [Mass/Vol] 6.3 g/dL Low 6.4 - 8.3 g/dL [facility] Albumin [Mass/Vol] 3.5 g/dL Normal 3.5-5.0 [facility] Comment on above: Performed By: #### H EMO #### [facility] (DEFAULT) [address] [place] [address] ALP [Catalytic activity/Vol] 117 U/L Normal 32-126 [facility] Comment on above: Performed By: #### H EMOGC #### [facility] (DEFAULT) [address] [place] [address] ALT [Catalytic activity/Vol] 10 U/L Normal 9-48 [facility] Comment on above: Performed By: #### H EMOGC #### [facility] (DEFAULT) [address] [place] [address] AST [Catalytic activity/Vol] 17 U/L Normal 10-39 [facility] Comment on above: Performed By: #### H EMOGC #### [facility] (DEFAULT) [address] [place] [address] Bilirubin [Mass/Vol] 0.6 mg/dL Normal <1.5 [facility] Comment on above: Performed By: #### H EMOGC #### [facility] (DEFAULT) [address] [place] [address] Bilirubin.indirect [Mass/Vol] 0.1 mg/dL Normal <0.3 [facility] Comment on above: Performed By: #### H EMOGC #### [facility] (DEFAULT) [address] [place] [address] Protein [Mass/Vol] 6.3 g/dL Low 6.4-8.3 [facility] Comment on above: Performed By: #### H [facility] #### [facility] (DEFAULT) [address] [place] [address] HIGH SENSITIVITY TROPONIN I - SINGLE ORDERon 08-02-2024 Interpretation and review of laboratory results Normal [facility] Troponin I.cardiac High sensitivity method [Mass/Vol] 9 ng/L NINF - 34 ng/L [facility] hs-Troponin I 9 ng/L Normal <34 [facility] Comment on above: Order Comment: [...] bottle. Performed By: #### B LDCULT #### [facility] (DEFAULT) [address] [place] [address] Hematocrit Auto (Bld) [Volum e fraction]Ordered By: Pieter Morgan on 08-02-2024 Hematocrit (Bld) [Volume fraction] 42.0 % 37-47 [facility] Hemoglobin measurementOrdere d By: Pieter Morgan on 08-02-2024 Hemoglobin (Bld) [Mass/Vol] 13.8 g/dL 12.0-15.0 [facility] Immature granulocytes/100 WB C Auto (Bld)Ordered By: Pieter Morgan on 08-02-2024 Immature granulocytes/100 WBC (Bld) 0.300 % 0.0-0.9 [facility] Comment on above: IG% - Immature Granu locytes (promyelocytes, myelocytes and metamyelocytes) > 1% indicates that a LEFT SHIFT is Present. Influenza virus A and B and SARS-CoV-2 (COVID-19) and Respiratory syncytial virus RNAOrdered By: Pieter Morgan on 08-02-2024 SARS-CoV-2 (COVID-19) RNA CHUCKY+probe Ql (Unsp spec) [facility] International normalized rat io (INR) calculationOrdered By: Pieter Cathy on 08-02-2024 INR Coag (Bld) [Relative time] 1.1 {INR} [facility] L499.0042on 08-02-2024 Trop T High Sen Normal <=14 [facility] Comment on above: Result Comment: Canc elled via OM: Order cancelled - Patient discharged Performed By: #### L 499.0042 ####[facility] [address] [place], [address] L499.0043on 08-02-2024 Trop T High Sen Normal <=14 [facility] Comment on above: Result Comment: Canc elled via OM: Order cancelled - Patient discharged Performed By: #### L 499.0043 ####[facility] [address] [place], [address] L501.4021on 08-02-2024 Trop T High Sen 38 ng/L High <=14 [facility] Comment on above: Performed By: #### L 300.4310, L501.4021, L300.3900, L500.2500, L100.0100 ####[facility] [address] [place], [address] LIPID PANEL WITH REFLEX TO M EASURED LDLon 08-02-2024 Cholesterol [Mass/Vol] 141 mg/dL NINF - 200 mg/dL [facility] Cholesterol in HDL [Mass/Vol] 38 mg/dL Low 40 - PINF mg/dL [facility] Cholesterol in LDL [Mass/Vol] 84 mg/dL 0 - 99 mg/dL [facility] Cholesterol non HDL [Mass/Vol] 103 mg/dL NINF - 130 mg/dL [facility] Cholesterol.total/Alta sterol in HDL [Mass ratio] 3.7 {ratio} NINF - 4.5 [facility] Triglyceride [Mass/Vol] 96 mg/dL NINF - 150 mg/dL [facility] Calculated LDL Cholesterol 84 mg/dL Normal 0-99 [facility] Comment on above: Result Comment: [<10 0 mg/dL: Optimal] [100-129 mg/dL: Near Optimal] [130-159 mg/dL: Borderline High] [160-189 mg/dL: High] [>189 mg/dL: Very High] Performed By: #### H [facility] #### [facility] (DEFAULT) [address] [place] [address] Cholesterol [Mass/Vol] 141 mg/dL Normal <200 [facility] Comment on above: Result Comment: [<20 0 mg/dL: Desirable] [200-239 mg/dL: Borderline High] [>239 mg/dL: High] Performed By: #### H [facility] #### [facility] (DEFAULT) [address] [place] [address] Cholesterol in HDL [Mass/Vol] 38 mg/dL Low >=40 [facility] Comment on above: Result Comment: [<40 mg/dL: Low (High Risk)] [>59 mg/dL: High (Low Risk)] Performed By: #### H EMO #### [facility] (DEFAULT) [address] [place] [address] Non HDL Cholesterol 103 mg/dL Normal <130 [facility] Comment on above: Performed By: #### H EMO #### [facility] (DEFAULT) [address] [place] [address] Total Cholesterol/HDL Ratio 3.7 Normal <4.5 [facility] Comment on above: Performed By: #### H EMO #### [facility] (DEFAULT) [address] [place] [address] Triglyceride [Mass/Vol] 96 mg/dL Normal <150 [facility] Comment on above: Result Comment: [<15 0 mg/dL: Desirable] [150-199 mg/dL: Borderline] [200-499 mg/dL: High] [>500 mg/dL: Very High] Performed By: #### H [facility] #### [facility] (DEFAULT) [address] [place] [address] Lymphocytes Auto (Unsp spec) [#/Vol]Ordered By: Pieter Morgan on 08-02-2024 Lymphocytes (Bld) [#/Vol] 1.56 10*3/uL 0.83-4.51 [facility] Lymphocytes/100 WBC Auto (Un sp spec)Ordered By: Pieter Morgan on 08-02-2024 Lymphocytes/100 WBC (Bld) 17.9 % Low 19-41 [facility] M100.678on 08-02-2024 M100.678 Pending SARS-CoV-2 (COVID 19) Negative INFLUENZA A Negative INFLUENZA B Negative RSV PCR Negative Normal [facility] Comment on above: Performed By: #### M 100.678 #### [facility] [address] [place], [address] MAGNESIUMon 08-02-2024 Magnesium [Mass/Vol] 1.2 mg/dL Low 1.6 - 2 .6 mg/dL [facility] Magnesium [Mass/Vol] 1.2 mg/dL Low 1.6-2.6 [facility] Comment on above: Performed By: #### H [facility] #### [facility] (DEFAULT) [address] [place] [address] MCV (mean corpuscular volume ) determinationOrdered By: Pieter Morgan on 08-02-2024 MCV (RBC) [Entitic vol] 92.1 fL 81-99 [facility] Mean corpuscular hemoglobin (MCH) determinationOrdered By: Pieter Morgan on 03-21-2025 MCH (RBC) [Entitic mass] 30.3 pg 27.0-32.0 [facility] Mean corpuscular hemoglobin concentration (MCHC) determinationOrdered By: Pieter Morgan on 08-02-2024 MCHC (RBC) [Mass/Vol] 32.9 g/dL 32-36 [facility] Mean platelet volume determi nationOrdered By: Pieter Morgan on 08-02-2024 Platelet mean volume (Bld) [Entitic vol] 10.7 fL 6.2-12.0 [facility] Monocyte percentageOrdered B y: Pieter Morgan on 08-02-2024 Monocytes/100 WBC (Bld) 8.9 % 0-10 [facility] NT-PRO B-TYPE NATRIURETIC PE PTIDEon 08-02-2024 Natriuretic peptide B (Bld) [Mass/Vol] 1115 pg/mL High <=540 [facility] Comment on above: Performed By: #### [facility] #### [facility] (DEFAULT) [address] [place] [address] Neutrophil percentageOrdered By: Pieter Morgan on 08-02-2024 Neutrophils/100 WBC (Bld) 71.4 % High 47-70 [facility] No Panel Informationon 08-02 Radiology Study observation (narrative) [facility] Interpretation and review of laboratory results Abnormal [facility] No Panel InformationOrdered By: Pieter Morgan on 08-02-2024 Troponin T High Sensitivity 38 ng/L High <14 [facility] Nucleated red blood cell per centageOrdered By: Pieter Morgan on 08-02-2024 Nucleated RBC/100 WBC (Bld) [Ratio] 0 % 0-5 [facility] PT,INR,PTTon 08-02-2024 aPTT Coag (PPP) [Time] 26.9 s [facility] INR Coag (Bld) [Relative time] 1.1 {INR} 0.9 - 1.1 [facility] Interpretation and review of laboratory results Normal [facility] PT Coag (PPP) [Time] 13.9 s [facility] aPTT Coag (Bld) [Time] 26.9 s Normal 24.0-34.3 [facility] Comment on above: Performed By: #### P TPTT ####[facility] (DEFAULT)[address] [place] [address] INR Coag (PPP) [Relative time] 1.1 {INR} Normal 0.9-1.1 [facility] Comment on above: Performed By: #### P TPTT ####[facility] (DEFAULT)[address] [facility] [place] [address] PT Coag (PPP) [Time] 13.9 s Normal 11.9-14.2 [facility] Comment on above: Performed By: #### P TPTT ####[facility] (DEFAULT)[address] [place] [address] Partial Thromboplast Timeon 08-02-2024 aPTT Coag (Bld) [Time] 28.4 s Normal 24.1-36.2 [facility] Comment on above: Performed By: #### L 300.4310, L501.4021, L300.3900, L500.2500, L100.0100 #### [facility] [address] [place], [address] Platelet countOrdered By: Racheal Morgan on 08-02-2024 Platelets (Bld) [#/Vol] 214 10*3/uL 150-450 [facility] Potassium (Unsp spec) [Mass/ Vol]Ordered By: Pieter Morgan on 08-02-2024 Potassium [Moles/Vol] 4.2 mmol/L 3.3-5.1 [facility] Potassium measurement (mass/ volume)Ordered By: Pieter Morgan on 08-02-2024 Potassium (Unsp spec) [Mass/Vol] 4.2 mmol/L 3.3-5.1 [facility] Prothrombin Time w/INRon INR Coag (PPP) [Relative time] 1.1 {INR} Normal [facility] Comment on above: Performed By: #### L 300.4310, L501.4021, L300.3900, L500.2500, L100.0100 #### [facility] [address] [place], [address] PT Coag (PPP) [Time] 14.1 s Normal 11.7-14.9 [facility] Comment on above: Performed By: #### L 300.4310, L501.4021, L300.3900, L500.2500, L100.0100 #### [facility] [address] [place], [address] Prothrombin timeOrdered By: Pieter Morgan on 08-02-2024 PT Coag (PPP) [Time] 14.1 s 11.7-14.9 [facility] RBC Auto (Bld) [#/Vol]Ordere d By: Pieter Morgan on 08-02-2024 RBC (Bld) [#/Vol] 4.56 10*6/uL 4.2-5.4 [facility] SCREEN: MRSA/MSSAon 08-03-19 25 Methicillin Resistant S. Aureus By Pcr Negative Normal Negative [facility] Comment on above: Order Comment: [...] by the Clinical Microbiology Laboratory at [facility]. It has not been cleared or approved by the FDA.The laboratory is regulated under CLIA as qualified to perform high-complexity testing. This test is used for clinical purposes. It should not be regarded as investigational or for research. Performed By: #### T YPEC #### [facility] (DEFAULT) [address] [address] Staphylococcus Aureus By Pcr Negative Normal Negative [facility] Comment on above: Order Comment: [...] by the Clinical Microbiology Laboratory at [facility]. It has not been cleared or approved by the FDA.The laboratory is regulated under CLIA as qualified to perform high-complexity testing. This test is used for clinical purposes. It should not be regarded as investigational or for research. Performed By: #### T YPEC #### [facility] (DEFAULT) [address] [address] STROKE Brain/Head without Co nton 08-02-2024 STROKE Brain/Head without Cont [facility] Imaging Services [address] [place] [id number] STROKE Brain/Head without Cont MR#: [id number] Acct: [id number] Name: LINDSAY ACUNA Rep #: [id number] : 1945 F 78 From: Kameron Cardoso MD PCP: Dr. Kameron Caruso MD Status: REG ER Study: STROKE Brain/Head without Cont Date of Exam: 0 08/02/24 Exam# [id number] Ordering Dr: Pieter Morgan MD EXAM: CT [...] at 1250 hours. Reading Location: [facility] CC: Dr. Pieter Morgan MD; Dr. 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 Kameron Caruso MD Status: REG ER Study: STROKE CTA Head AND Neck W/Con Date of Exam: 0 08/02/24 Exam# [id number] Ordering Dr: Pieter Morgan MD PROCEDURE: STROKE [...] impression: No significant stenosis seen. Reading Location: [place] [address] CC: Dr. Pieter Morgan MD; Dr. 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: Signed Normal [facility] Serum creatinine measurement (mass/volume)Ordered By: Pieter Morgan on 08-02-2024 Creatinine [Mass/Vol] 1.74 mg/dL High 0.70-1.20 [facility] Serum glucose measurement (m ass/volume)Ordered By: Pieter Morgan on 08-02-2024 Glucose [Mass/Vol] 235 mg/dL High 70-99 [facility] Serum or plasma calcium dayna urement (mass/volume)Ordered By: Pieter Morgan on 08-02-2024 Calcium [Mass/Vol] 9.0 mg/dL 7.6-11.0 [facility] Serum or plasma urea nitroge n measurement (mass/volume)Ordered By: Pieter Morgan on 08-02-2024 Urea nitrogen [Mass/Vol] 20 mg/dL High 4-19 [facility] Sodium levelOrdered By: Evert Morgan on 08-02-2024 Sodium [Moles/Vol] 132 mmol/L Low 133-145 [facility] TSH W/FT4 REFLEXon Interpretation and review of laboratory results Normal [facility] TSH Qn 1.662 m[IU]/L [facility] TSH 1.662 uIU/mL Normal 0.550-4.780 [facility] Comment on above: Performed By: #### X M #### [facility] (DEFAULT) [address] [place] [address] TYPE AND SCREENon 08-02-2024 ABO/RH(D) TYPE Negative [facility] Specimen Expiration 08/05/2024 23:59 [facility] ABO/RH(D) TYPE Negative Normal [facility] Comment on above: Performed By: #### X M #### [facility] (DEFAULT) [address] [place] [address] Specimen Expiration 08/05/2024 23:59 Normal [facility] Comment on above: Performed By: #### X M #### [facility] (DEFAULT) [address] [place] [address] URINALYSIS REFLEX TO CULTURE PERFORMABLEOrdered By: Namita De La Cruz on 08-02-2024 Appearance (U) Clear Clear [facility] Bacteria LM Ql (Urine sed) PRESENT Abnormal ABSENT [facility] Color (U) Yellow Yellow [facility] Epithelial cells.squamous LM Ql (Urine sed) 0-2/hpf 0-2/hpf, 3-5/hpf = [facility] Test [facility] (U) [Mass/Vol] 500 mg/dL Abnormal Negative [facility] Interpretation and review of laboratory results [facility] Ketones (U) [Mass/Vol] Negative Negative [facility] Leukocyte esterase Test strip Ql (U) Moderate Abnormal Negative [facility] Nitrite Ql (U) Negative [facility] pH (U) 6.5 [pH] 5.0 - 7.0 [facility] Protein (U) [Mass/Vol] Negative Negative [facility] RBC (U) [#/Vol] Small Abnormal Negative U [facility] RBC LM.HPF (Urine sed) [#/Area] 3-5 Abnormal [facility] Specific gravity (U) [Rel density] 1.022 1.001 - 1.035 [facility] Urobilinogen (U) [Mass/Vol] 0.2 E.U./dL 0.2 E.U/dL, 1.0 E.U/dL [facility] WBC LM.HPF (Urine sed) [#/Area] /[HPF] Abnormal [facility] URINALYSIS REFLEX TO CULTURE PERFORMABLEon 08-02-2024 Appearance (U) Clear Normal Clear [facility] Comment on above: Order Comment: For i ndwelling catheters, specimen collection is acceptable on catheter day 1 and 2 only. ? Performed By: #### U [id number] #### [facility] (DEFAULT) [address] [place] [address] Bacteria PRESENT Abnormal ABSENT [facility] Comment on above: Order Comment: For i ndwelling catheters, specimen collection is acceptable on catheter day 1 and 2 only. ? Performed By: #### U [id number] #### [facility] (DEFAULT) [address] [place] [address] Blood Urine Small Abnormal Negative [facility] Comment on above: Order Comment: For i ndwelling catheters, specimen collection is acceptable on catheter day 1 and 2 only. ? Performed By: #### U [id number] #### [facility] (DEFAULT) [address] [place] [address] Color (U) Yellow Normal Yellow [facility] Comment on above: Order Comment: For i ndwelling catheters, specimen collection is acceptable on catheter day 1 and 2 only. ? Performed By: #### U [id number] #### [facility] (DEFAULT) [address] [place] [address] Glucose Ql (U) 500 mg/dL Abnormal Negative [facility] Comment on above: Order Comment: For i ndwelling catheters, specimen collection is acceptable on catheter day 1 and 2 only. ? Performed By: #### U [id number] #### [facility] (DEFAULT) [address] [place] [address] Ketones Ql (U) Negative Normal Negative [facility] Comment on above: Order Comment: For i ndwelling catheters, specimen collection is acceptable on catheter day 1 and 2 only. ? Performed By: #### U [id number] #### [facility] (DEFAULT) [address] [place] [address] Leukocyte esterase Test strip Ql (U) Moderate Abnormal Negative [facility] Comment on above: Order Comment: For i ndwelling catheters, specimen collection is acceptable on catheter day 1 and 2 only. ? Performed By: #### U [id number] #### [facility] (DEFAULT) [address] [place] [address] Nitrites Urine Negative Normal Negative [facility] Comment on above: Order Comment: For i ndwelling catheters, specimen collection is acceptable on catheter day 1 and 2 only. ? Performed By: #### U [id number] #### [facility] (DEFAULT) [address] [place] [address] pH (U) 6.5 [pH] Normal 5.0-7.0 [facility] Comment on above: Order Comment: For i ndwelling catheters, specimen collection is acceptable on catheter day 1 and 2 only. ? Performed By: #### U [id number] #### [facility] (DEFAULT) [address] [place] [address] Protein Urine Negative Normal Negative [facility] Comment on above: Order Comment: For i ndwelling catheters, specimen collection is acceptable on catheter day 1 and 2 only. ? Performed By: #### U [id number] #### [facility] (DEFAULT) [address] [place] [address] RBC Urine 3-5 Abnormal 0-2 [facility] Comment on above: Order Comment: For i ndwelling catheters, specimen collection is acceptable on catheter day 1 and 2 only. ? Performed By: #### U [id number] #### U [facility] (DEFAULT) [address] [address] Specific [place] Urine 1.022 Normal 1.001-1.035 O [facility] Comment on above: Order Comment: For i ndwelling catheters, specimen collection is acceptable on catheter day 1 and 2 only. ? Performed By: #### U [id number] #### [facility] (DEFAULT) [address] [address] Squamous/Epithelial Cells, Urine 0-2/hpf Normal 0-2/hpf, 3-5/hpf = 1+ [facility] Comment on above: Order Comment: For i ndwelling catheters, specimen collection is acceptable on catheter day 1 and 2 only. ? Performed By: #### U [id number] #### [facility] (DEFAULT) [address] [address] Urobilinogen Urine 0.2 E.U./dL Normal 0.2 E.U/d L, 1.0 E.U/dL [facility] Comment on above: Order Comment: For i ndwelling catheters, specimen collection is acceptable on catheter day 1 and 2 only. ? Performed By: #### U [id number] #### [facility] (DEFAULT) [address] [address] WBC LM.HPF (Urine sed) [#/Area] /[HPF] Abnormal 0 - 5 [facility] Comment on above: Order Comment: For i ndwelling catheters, specimen collection is acceptable on catheter day 1 and 2 only. ? Performed By: #### U [id number] #### [facility] (DEFAULT) [address] [address] VON WILLEBRAND FACTOR AGon 0 08-02-2024 Von Willebrand Factor Antigen 230 % High 50-180 [facility] Comment on above: Performed By: #### H EMOGC #### U [facility] (DEFAULT) [address] [address] White blood cell (WBC) count Ordered By: Pieter Morgan on 08-02-2024 WBC (Bld) [#/Vol] 8.7 10*3/uL 4.4-11.0 [facility] XR Elbow - right 2 Viewson 0 08-02-2024 Radiology Study observation (narrative) [facility] XR Humerus - right Viewson 0 08-02-2024 Radiology Study observation (narrative) [facility] XR Wrist - right 3 [facility] 0 08-02-2024 Radiology Study observation (narrative) [facility] aPTT Coag (PPP) [Time]Gregorioe d By: Pieter Morgan on 08-02-2024 aPTT Coag (Bld) [Time] 28.4 s 24.1-36.2 [facility] CNPNon 07-03-2024 [facility] ARMANDLINSDAY ([id number]) 1945 F Date Time Provider Department 07/03/24 [...] calling: self Call patient at: on cell [phone] (home) [phone] (cell) Was an appointment scheduled: No Closing statement: Results or non-symptom based questions: Thank you for calling [facility], your call will be returned within the next business day. Mj Bowling APRN.[facility] 07/03/2024 12:28 PM Signed The following approved medication requests have been transmitted electronically. Requested Prescriptions Signed Prescriptions Disp Refills doxycycline monohydrate (MONODOX) 100 mg capsule 56 capsule 0 Sig: Take 1 capsule by mouth two times a day for 28 days. Authorizing Provider: MJ GLOVER APRN.VP BIOLOGY Allergies As of Date: 07/03/2024 Noted Allergy [...] daily with breakfast. - blood sugar diagnostic (LifeDoxTOUCH ULTRA TEST) test strip Test Blood Sugar one times daily Dx: E11.29 Insulin: No - lancets (ONETOUCH DELICA PLUS LANCET) 30 gauge Test blood sugars 1 time daily. Dx: Type 2 DM Controlled E11.9. Insulin: no - Chlorhexidine Gluconate (PERIDEX) 0.12 % solution Use 15 mL as instructed twice daily. Rinse around mouth for 30 seconds then expectorate - blood sugar diagnostic (LifeDoxTOUCH ULTRA TEST STRIP) test strip Use to [...] Encounter Status:Closed by MJ GLOVER on 07/03/24 [facility] [place] 07-02-2024 [facility] Telephone (FAMPWS) LINDSAY ACUNA ([id number]) 1945 F Date Time Provider Department 07/02/24 KAMEORN CARUSO During your visit today, we recorded the following information about you: Katia Grullon RN 07/02/2024 11:57 AM Signed Patient calls and is requesting Cardiology referral to be faxed to [facility]. Faxed referral as requested. [...] Encounter Status:Closed by KATIA GRULLON on 07/02/24 [facility] 06-28-2024 CNPN Telephone (FAMPTW) LINDSAY ACUNA ([id number]) 1945 F Date Time Provider Department 06/28/24 ELDERKAMERON CHUNG During your visit today, we recorded the [...] calling: self Call patient at: on cell [phone] (home) [phone] (cell) Was an appointment scheduled: No Goldie Gallegos [facility] Adenike Walton MA 06/28/2024 3:08 PM Signed Please review pt message and advise. TAITANA Simpson Jesse, APRN.GARRETT 07/01/2024 11:23 AM Signed [...] daily Dx: E11.29 Insulin: No - lancets (LifeDoxTOUCH DELICA PLUS LANCET) 30 gauge Test blood [...] Encounter Status:Closed by BRET ARAMBULA on 07/01/24 Normal [facility] CNOVon 06-26-2024 CNOV Office Visit (MILTONWS ) LINDSAY ACUNA ([id number]) 1945 F Date Time Provider Department 06/26/24 9:40 AM EMMA SOTOMAYOR During your visit today, we recorded the following information about you: Pulse Respiration Blood pressure Weight 93/minute 16/minute 144/88 78.9 kg Emma Sotomayor APRN.VP BIOLOGY 06/26/2024 12:37 PM Signed This is a [...] swelling RESP (more content not included)... Normal [facility] [place] 06-24-2024 [facility] (MILTONWS) LINDSAY ACUNA ([id number]) 1945 F Date Time Provider Department 06/24/24 [facility] CAR[facility]O [facility] During your visit today, we recorded the following information about you: Katia Grullon, ZOE 06/24/2024 1:22 PM Signed Patient calls and states that she is going to be going to [facility] and will need medications for Malaria [...] Encounter Status:Closed by KAMERON CARUSO on 06/24/24 [facility] 06-11-2024 CNPN Telephone (FAMPWS) LINDSAY ACUNA ([id number]) 1945 F Date Time Provider Department 06/11/24 [facility] During your visit today, we recorded the [...] Status:Closed by NAIMA MARSHALL on 06/11/24 Normal [facility] ECHOon 06-11-2024 Echocardiography Echocardiography Report: Transthoracic Echo [facility] Date of service: 06/11/2024 8:52:28 AM SYSTEMS ADMINISTRATOR Ordering physician: KAMERON CARUSO Indication: Atrial fibrillation Technologist: Katia Du [facility] Interpreting physician: David Herndon MD PATIENT: [...] * * * Final * * * [employer] : [id number]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 <150 [facility] Comment on above: Order Comment: Speci men Type: BLOOD SPECIMENOrdering Facility: [facility] Address: [address] [place] [address] Result Comment: <150 mg/dL, Normal 150-199 mg/dL, Borderline high 200-499 mg/dL, High >499 mg/dL, Very high Performed By: #### 3 016-3, 63535-7, 81996-6 ####[facility] LABIA [id number] [place] [address] [place] TSH SerPl-aCncon 11-27-2023 TSH Qn 1.870 m[IU]/L Normal 0.270-4.200 [facility] Comment on above: Order Comment: Speci men Type: BLOOD SPECIMENOrdering Facility: [facility] Address: [address] [place] [address] Performed By: #### 3 016-3, 40218-1, 18736-2 ####[facility] [id number] [place] [id number] [place] CNOVon 10-10-2023 [facility] LINDSAY ACUNA ([id number]) 1945 F Date Time Provider Department 10/10/23 7:30 AM DAVID DUPREE [facility] During your visit today, we recorded the following information about you: Temperature Pulse Respiration Blood pressure 97.5 degrees 58/minute 18/minute 128/82 Weight 82.1 kg David 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 lancets (LifeDoxTOUCH DELICA PLUS LANCET) 30 gauge Test blood [...] Rate and (more content not included)... Normal [facility] CNOVon 09-29-2023 CNOV Office Visit ([facility] ) LINDSAY ACUNA ([id number]) 1945 F Date Time Provider Department 09/29/23 2:15 PM RADHA LEVINE [facility] During your visit today, we recorded the following information about you: Temperature Pulse Respiration Blood pressure 97.8 degrees 54/minute 18/minute 148/91 Weight 84 kg Radha Levine APRN.GARRETT 09/29/2023 6:12 PM Signed This note was created using NoteWriter. Subjective Lindsay Acuna is a 77 year old female. 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 Denies fever or chills Denies malaise or fatigue Denies new lotions, soaps, or medicines States that she was working out in the garden the same day the rash erupted. The history is provided by the patient. No aerial photograph interpreter was used. Rash This is a [...] mouth daily before breakfast. blood sugar diagnostic ([employer] LendersUCH ULTRA TEST) test strip Test Blood Sugar [...] 1 tablet by mouth once daily. lancets (LifeDoxTOUCH DELICA PLUS LANCET) 30 gauge Test blood [...] state. Hematologi (more content not included)... Normal [facility] Glucose,Bedsideon 04-16-2019 Glucose [Mass/Vol] 161 mg/dL High 70-100 [facility] [employer] Comment on above: Result Comment: Test performed by glucose meter. Results may be 10%-15% lower than serum/plasma values. (CLIA ID [id number]) Performed By: #### B GLU #### [facility] [address] [address] Surgical Pathologyon 019 Surgical Pathology [id number] [facility] PATHOLOGY AND LABORATORY MEDICINE [address] [place] [id number] FINAL SURGICAL PATHOLOGY REPORT ___ NAME: LINDSAY ACUNA : 1945 73 Y F BILLING NO.: [id number] LOCATION: 1XEO PROCEDURE 01/09/2019 DATE: SURGEON: SANTIAGO [...] characteristics determined by the clinical laboratories of [facility]. They have not been cleared by [...] negativity on decalcified specimens. Professional Performing Location: [place] [address]. DEPARTMENT OF PATHOLOGY AND LABORATORY MEDICINE [place], [place] [address] Normal [facility] .Auto Diffon 08-22-2018 Ammonia mass conc (P) 1.10 10 3/mcL High 0.15-1.00 [facility] ([place]) Comment on above: Performed By: #### B MP, GFR #### [address] [address] Basophils #/vol (Bld) 0.00 10 3/mcL Normal 0.00-0.19 [facility] ([place]) Comment on above: Performed By: #### B MP, GFR #### [address] [address] Basophils/100 WBC (Bld) 0.3 % Normal 0.0-2.5 [facility] ([place]) Comment on above: Performed By: #### B MP, GFR #### [address] [address] Eosinophils #/vol (Bld) 0.00 10 3/mcL Normal 0.00-0.40 [facility] ([place]) Comment on above: Performed By: #### B MP, GFR #### [address] [address] Eosinophils/100 WBC (Bld) 0.2 % Normal 0.0-7.0 [facility] ([place]) Comment on above: Performed By: #### B MP, GFR #### [address] [address] Lymphocytes #/vol (Bld) 2.20 10 3/mcL Normal 0.77-3.85 [facility] ([place]) Comment on above: Performed By: #### B MP, GFR #### [address] [address] Lymphocytes/100 WBC (Bld) 20.5 % Normal 10.0-50.0 [facility] ([place]) Comment on above: Performed By: #### B MP, GFR #### [address] [address] Monocytes/100 WBC (Bld) 10.5 % Normal 1.7-13.0 A [facility] ([place]) Comment on above: Performed By: #### B MP, GFR #### [address] [address] Neutrophils/100 WBC (Bld) 68.5 % Normal 37.0-80.0 [facility] ([place]) Comment on above: Performed By: #### B MP, GFR #### [address] [address] .GFRon 08-22-2018 GFR Non- 33 ml/min/1.73sqm Normal [facility] ([place]) Comment on above: Result Comment: [...] Performed By: #### B MP, GFR #### [place] [address] #### JOHN, ADCAROL, ANEU #### [address] [address] GFR 40 ml/min/1.73sqm Normal [facility] ([place]) Comment on above: Result Comment: GFR Population [...] Performed By: #### B MP, GFR #### [place] [address] #### JOHN, ADIFF, ANEU #### [address] [address] .NEUABSon 08-22-2018 Neutrophils #/vol (Bld) 7.40 10 3/mcL High 2.85-6.16 [facility] ([place] Comment on above: Performed By: #### B MP, GFR #### [address] [address] BMPon 08-22-2018 Calcium mass conc 8.3 mg/dL Low 8.4-10.2 [facility] ([place]) Comment on above: Performed By: #### Roby MP, GFR #### [place] [address] #### CBC, ADIFF, ANEU #### [address] [address] Chloride molar conc 104 mmol/L Normal 98-107 [facility] ([place]) Comment on above: Performed By: #### B MP, GFR #### [place] [address] #### CBC, ADIFF, ANEU #### [address] [address] CO2 molar conc 25 mmol/L Normal 23-31 [facility] ([place]) Comment on above: Performed By: #### Roby MP, GFR #### [place] [address] #### CBC, ADIFF, ANEU #### [address] [address] Creatinine mass conc 1.53 mg/dL High 0.55-1.02 [facility] ([place]) Comment on above: Performed By: #### Roby MP, GFR #### [place] [address] #### CBC, ADIFF, ANEU #### [address] [address] Electrolyte Balance 10.0 mEq/L Normal [facility] ([place]) Comment on above: Performed By: #### B MP, GFR #### [place] [address] #### CBC, ADIFF, ANEU #### [address] [address] Glucose mass conc 149 mg/dL High 83-110 [facility] ([place]) Comment on above: Performed By: #### B MP, GFR #### [place] [address] #### CBC, ADIFF, ANEU #### [address] [address] Potassium molar conc 4.3 mmol/L Normal 3.5-5.1 [facility] ([place]) Comment on above: Performed By: #### B MP, GFR #### [address] [address] #### CBC, ADIFF, ANEU #### [address] [address] Sodium molar conc 139 mmol/L Normal 136-145 [facility] ([place]) Comment on above: Performed By: #### B MP, GFR #### [address] [address] #### CBC, ADIFF, ANEU #### [address] [address] Urea nitrogen mass conc 32 mg/dL High 7-18 [facility] ([place]) Comment on above: Performed By: #### B MP, GFR #### [place] [address] #### CBC, ADIFF, ANEU #### [address] [address] Urea nitrogen/Creatinine mass ratio 21 ratio Normal 7-27 [facility] ([place]) Comment on above: Performed By: #### B MP, GFR #### [address] [address] #### CBC, ADIFF, ANEU #### [address] [address] CBCon 08-22-2018 Erythrocyte distribution width Ratio (RBC) 12.6 % Normal 11.5-14.5 [facility] ([place]) Comment on above: Performed By: #### B MP, GFR #### [place] [address] Hematocrit Volume Fraction (Bld) 27.5 % Low 37.0-47.0 [facility] ([place] Comment on above: Performed By: #### B MP, GFR #### [place] [address] Hemoglobin mass conc (Bld) 9.2 G/dL Low 12.0-16.0 [facility] ([place]) Comment on above: Performed By: #### B MP, GFR #### [address] [address] MCH Entitic mass (RBC) 30.1 pg Normal 27.0-31.2 [facility] ([place] Comment on above: Performed By: #### B MP, GFR #### [address] [address] MCHC mass conc (RBC) 33.5 G/dL Normal 33.0-37.0 [facility] ([place]) Comment on above: Performed By: #### B MP, GFR #### [address] [address] MCV Entitic volume (RBC) 89.8 fL Normal 80.0-94.0 [facility] ([place] Comment on above: Performed By: #### B MP, GFR #### [address] [address] Platelet mean volume Entitic volume (Bld) 9.3 fL Normal 7.4-10.4 [facility] ([place] Comment on above: Performed By: #### B MP, GFR #### [address] [address] Platelets #/vol (Bld) 224 10 3/mcL Normal 130-400 A [facility] ([place]) Comment on above: Performed By: #### B MP, GFR #### [address] [address] RBC #/vol (Bld) 3.06 10 6/mcL Low 4.20-5.40 [facility] ([place]) Comment on above: Performed By: #### B MP, GFR #### [address] [address] WBC #/vol (Bld) 10.80 10 3/mcL Normal 4.60-10.80 [facility] ([place]) Comment on above: Performed By: #### B MP, GFR #### [address] [address] XR KNEE 1 OR 2 VIEWS RIGHTon [...] Date: 08/21/2018 9:55:37 AM Normal [facility] ([place] KNEE W/O CONTRAST RIGHTon 08-09-2018 CT [...] Date: 08/09/2018 5:04:12 PM Normal [facility] ([place]) .Auto Diffon 08-06-2018 Ammonia mass conc (P) 0.80 10 3/mcL Normal 0.15-1.00 [facility] ([place] Comment on above: Performed By: #### C BC, ADIFF, ANEU #### [facility] [address] [place] [id number] #### A1C #### [address] [address] Basophils #/vol (Bld) 0.10 10 3/mcL Normal 0.00-0.19 [facility] ([place]) Comment on above: Performed By: #### C BC, ADIFF, ANEU #### [address] [address] #### A1C #### [address] [address] Basophils/100 WBC (Bld) 0.6 % Normal 0.0-2.5 [facility] ([place]) Comment on above: Performed By: #### C BC, ADIFF, ANEU #### [address] [address] #### A1C #### [address] [address] Eosinophils #/vol (Bld) 0.20 10 3/mcL Normal 0.00-0.40 [facility] ([place]) Comment on above: Performed By: #### C BC ADIFF, ANEU #### [place] [address] #### A1C #### [address] [address] Eosinophils/100 WBC (Bld) 1.7 % Normal 0.0-7.0 [facility] ([place]) Comment on above: Performed By: #### C BC ADIFF, ANEU #### [address] [address] #### A1C #### [address] [address] Lymphocytes #/vol (Bld) 1.90 10 3/mcL Normal 0.77-3.85 [facility] ([place]) Comment on above: Performed By: #### C BC, ADIFF, ANEU #### [place] [address] #### A1C #### [address] [address] Lymphocytes/100 WBC (Bld) 20.8 % Normal 10.0-50.0 [facility] ([place]) Comment on above: Performed By: #### C BC, ADIFF, ANEU #### [place] [id number] [place], [place] [address] #### A1C #### [facility] [address] [place] [address] Monocytes/100 WBC (Bld) 9.3 % Normal 1.7-13.0 [facility] ([place]) Comment on above: Performed By: #### C BC, ADIFF, ANEU #### [address] [address] #### A1C #### [address] [address] Neutrophils/100 WBC (Bld) 67.6 % Normal 37.0-80.0 [facility] ([place]) Comment on above: Performed By: #### C BC, ADIFF, ANEU #### [address] [address] #### A1C #### [address] [address] .GFRon 08-06-2018 GFR 51 ml/min/1.73sqm Normal [facility] ([place]) Comment on above: Result Comment: [...] Performed By: #### B MP, GFR #### [address] [address] GFR Non- 42 ml/min/1.73sqm Normal [facility] ([place]) Comment on above: Result Comment: [...] Performed By: #### B MP, GFR #### [place] [address] .NEUABSon 08-06-2018 Neutrophils #/vol (Bld) 6.20 10 3/mcL High 2.85-6.16 [facility] ([place]) Comment on above: Performed By: #### C DORY SMITH, ANEU #### [address] [address] #### A1C #### [place] [address] A1Con 08-06-2018 Hemoglobin A1c/Hemoglobin.total mass fraction (Bld) 7.9 % High 4.5-6.2 [facility] ([place] Comment on above: Performed By: #### C SARAH, DORY, ANEU #### [address] [address] #### A1C #### [place] [address] BMPon 08-06-2018 Calcium mass conc 9.2 mg/dL Normal 8.4-10.2 [facility] ([place] Comment on above: Performed By: #### B MP, GFR #### [place] [address] Chloride molar conc 105 mmol/L Normal 98-107 [facility] ([place]) Comment on above: Performed By: #### B MP, GFR #### [place] [address] CO2 molar conc 27 mmol/L Normal 23-31 [facility] ([place] Comment on above: Performed By: #### B MP, GFR #### [address] [address] Creatinine mass conc 1.25 mg/dL High 0.55-1.02 [facility] ([place] Comment on above: Performed By: #### B MP, GFR #### [address] [address] Electrolyte Balance 11.0 mEq/L Normal [facility] ([place]) Comment on above: Performed By: #### B MP, GFR #### [address] [address] Glucose mass conc 70 mg/dL Low 83-110 [facility] ([place] Comment on above: Performed By: #### B MP, GFR #### [address] [address] Potassium molar conc 5.0 mmol/L Normal 3.5-5.1 [facility] ([place] Comment on above: Performed By: #### B MP, GFR #### [address] [address] Sodium molar conc 143 mmol/L Normal 136-145 [facility] ([place] Comment on above: Performed By: #### B MP, GFR #### [address] [address] Urea nitrogen mass conc 26 mg/dL High 7-18 A [facility] ([place]) Comment on above: Performed By: #### B MP, GFR #### [place] [id number] Urea nitrogen/Creatinine mass ratio 21 ratio Normal 7-27 [facility] ([place] Comment on above: Performed By: #### B MP, GFR #### [address] [address] CBCon 08-06-2018 Erythrocyte distribution width Ratio (RBC) 12.2 % Normal 11.5-14.5 [facility] ([place] Comment on above: Performed By: #### C BC, ADIFF, ANEU #### [address] [address] #### A1C #### [place] [address] Hematocrit Volume Fraction (Bld) 34.6 % Low 37.0-47.0 [facility] ([place] Comment on above: Performed By: #### C DORY SMITH, ANEU #### [address] [address] #### A1C #### [place] [address] Hemoglobin mass conc (Bld) 11.7 G/dL Low 12.0-16.0 [facility] ([place]) Comment on above: Performed By: #### C DORY SMITH, ANEU #### [address] [address] #### A1C #### [place] [address] MCH Entitic mass (RBC) 30.6 pg Normal 27.0-31.2 [facility] [place] Comment on above: Performed By: #### C DORY SMITH ANEU #### [address] [address] #### A1C #### [place] [address] MCHC mass conc (RBC) 33.7 G/dL Normal 33.0-37.0 [facility] ([place] Comment on above: Performed By: #### C DORY SMITH, ANEU #### [address] [address] #### A1C #### [place] [address] MCV Entitic volume (RBC) 90.9 fL Normal 80.0-94.0 [facility] ([place]) Comment on above: Performed By: #### C DORY SMITH, ANEU #### [address] [address] #### A1C #### [place] [address] Platelet mean volume Entitic volume (Bld) 8.8 fL Normal 7.4-10.4 [facility] ([place] Comment on above: Performed By: #### C BC, ADIFF, ANEU #### [address] [address] #### A1C #### [address] [address] Platelets #/vol (Bld) 355 10 3/mcL Normal 130-400 A [facility] ([place]) Comment on above: Performed By: #### C BC, ADIFF, ANEU #### [address] [address] #### A1C #### [address] [address] RBC #/vol (Bld) 3.81 10 6/mcL Low 4.20-5.40 [facility] ([place]) Comment on above: Performed By: #### C BC, ADIFF, ANEU #### [address] [address] #### A1C #### [address] [address] WBC #/vol (Bld) 9.20 10 3/mcL Normal 4.60-10.80 [facility] ([place]) Comment on above: Performed By: #### C BC, ADIFF, ANEU #### [address] [address] #### A1C #### [address] [address] Vital Signs Date Time Vital Sign Value Performing Clinician Facility 10-02-2024 09:21-0400 Body height 167.[address] Kameron Caruso MD Work Phone: [facility] 10-02-2024 09:21-0400 Diastolic blood pressure 71 mm[Hg] Dr. Kameron Caruso MD Work Phone: [facility] 10-02-2024 09:21-0400 Heart rate 77 /min Dr. Kameron Caruso MD Work Phone: [facility] 10-02-2024 09:21-0400 Respiratory rate 16 /min Dr. Kameron Caruso MD Work Phone: [facility] 10-02-2024 09:21-0400 Systolic blood pressure 111 mm[Hg] Dr. Kameron Caruso MD Work Phone: [facility] 09-09-2024 09:02-0400 Heart rate 100 /min SILVINO HA DO [employer] 09-09-2024 07:58-0400 Blood Pressure Cuff Size SILVINO CIDATZLE DO [employer] 09-09-2024 07:58-0400 Blood Pressure Location SILVINO CIDATZLE DO [employer] 09-09-2024 07:58-0400 Blood Pressure Method SILVINO CIDATZLE DO [employer] 09-09-2024 07:58-0400 Body temperature 96.8 [degF] SILVINO CIDATZLE DO [employer] 09-09-2024 07:58-0400 Diastolic Blood Pressure Non-Invasive 78 mm[Hg] SILVINO CIDATZLE DO [employer] 09-09-2024 07:58-0400 Heart rate 110 /min SILVINO CIDATZLE DO [employer] 09-09-2024 07:58-0400 Reason For Taking VItal Signs SILVINO CIDATZLE DO [employer] 09-09-2024 07:58-0400 Respiratory rate 16 /min SILVINO CIDATZLE DO [employer] 09-09-2024 07:58-0400 Systolic Blood Pressure Non-Invasive 122 mm[Hg] SILVINO CIDATZLE DO [employer] 09-09-2024 02:45-0400 Body temperature 97.7 [degF] SILVINO PALAKATZLE DO [employer] 09-09-2024 02:45-0400 Diastolic Blood Pressure Non-Invasive 60 mm[Hg] SILVINO CIDATZSHITAL DO [facility] 09-09-2024 02:45-0400 Heart rate 92 /min SILVINO CIDATZLE DO [facility] 09-09-2024 02:45-0400 Respiratory rate 16 /min SILVINO CIDATZLE DO [facility] 09-09-2024 02:45-0400 Systolic Blood Pressure Non-Invasive 108 mm[Hg] SILVINO CIDATZSHITAL DO [facility] 09-08-2024 22:28-0400 Blood Pressure Cuff Size SILVINO CIDATZSHITAL DO [facility] 09-08-2024 22:28-0400 Blood Pressure Location SILVINO PALAKATZSHITAL DO [facility] 09-08-2024 22:28-0400 Blood Pressure Method SILVINO CIDATZSHITAL DO [facility] 09-08-2024 22:28-0400 Body temperature 97.88 [degF] SILVINO CIDATZSHITAL DO [facility] 09-08-2024 22:28-0400 Diastolic Blood Pressure Non-Invasive 54 mm[Hg] SILVINO CIDATZSHITAL DO [facility] 09-08-2024 22:28-0400 Heart rate 92 /min SILVINO CIDATZLE DO [facility] 09-08-2024 22:28-0400 Reason For Taking VItal Signs SILVINO CIDATZSHITAL DO [facility] 09-08-2024 22:28-0400 Respiratory rate 16 /min SILVINO HA DO [facility] 09-08-2024 22:28-0400 Systolic Blood Pressure Non-Invasive 118 mm[Hg] SILVINO HA DO [facility] 09-08-2024 18:21-0400 Heart rate 90 /min SILVINO HA DO [facility] 09-08-2024 09:08-0400 Blood Pressure Cuff Size SILVINO HA DO [facility] 09-08-2024 09:08-0400 Blood Pressure Location SILVINO HA DO [facility] 09-08-2024 09:08-0400 Blood Pressure Method SILVINO CIDATZSHITAL DO [facility] 09-08-2024 09:08-0400 Heart rate 114 /min SILVINO RADERSHITAL DO [facility] 09-08-2024 09:08-0400 Reason For Taking VItal Signs SILVINO HA DO [employer] 09-04-2024 10:54-0400 Body temperature 96.62 [degF] SILVINO CIDATZLE DO [facility] 09-03-2024 00:26-0400 Body temperature 97.34 [degF] SILVINO PALAKATZLE DO [facility] 08-30-2024 22:54-0400 Body temperature 98.06 [degF] SILVINO CIDATZLE DO [facility] 08-26-2024 10:36-0400 Body weight 76 kg SILVINO HA DO [facility] 08-19-2024 06:00-0400 Body weight 75.3 kg SILVINO HA DO [employer] 08-15-2024 14:27-0400 Body height 170.2 cm SILVINO HA DO [facility] 08-15-2024 14:27-0400 Body weight 75.4 kg SILVINO HA DO [facility] 08-15-2024 14:27-0400 Body weight 26.03 kg/m2 SILVINO HA DO [facility] 08-15-2024 09:02-0400 Diastolic blood pressure 69 mm[Hg] Prema Ramos MD Work Phone: 3(561)155-242153 [address] 08-15-2024 09:02-0400 Systolic blood pressure 128 mm[Hg] Prema Ramos MD Work Phone: 3(349)607-974753 [address] 08-15-2024 07:28-0400 Heart rate 86 /min Prema Ramos MD Work Phone: 1(844)371-459553 [address] 08-15-2024 07:18-0400 Body temperature 97.3 [degF] Prema Ramos MD Work Phone: [facility] 08-15-2024 07:18-0400 Respiratory rate 23 /min Prema Ramos MD Work Phone: 5(795)[phone] [address] 08-15-2024 07:18-0400 SaO2% (BldA) [Mass fraction] 95 % Prema Ramos MD Work Phone: [facility] 08-05-2024 08:00-0400 Body height 170.2 cm Prema Ramos MD Work Phone: [facility] 08-05-2024 08:00-0400 Body mass index (BMI) [Ratio] 26.94 kg/m2 Prema Ramos MD Work Phone: [facility] 08-05-2024 08:00-0400 Body weight 78.02 kg Prema Ramos MD Work Phone: [facility] 08-02-2024 13:52-0400 Body temperature 98 [degF] Dr. Kameron Caruso MD Work Phone: [facility] 08-02-2024 13:52-0400 Diastolic blood pressure 91 mm[Hg] Dr. Kameron Caruso MD Work Phone: 3(229)[phone] [place] [address] 08-02-2024 13:52-0400 Heart rate 109 /min Dr. Kameron Caruso MD Work Phone: [facility] 08-02-2024 13:52-0400 Respiratory rate 16 /min Dr. Kameron Caruso MD Work Phone: [facility] 08-02-2024 13:52-0400 SaO2% (BldA) [Mass fraction] 98 % Dr. Kameron Caruso MD Work Phone: [facility] 08-02-2024 13:52-0400 Systolic blood pressure 153 mm[Hg] Dr. Kameron Caruso MD Work Phone: [facility] 08-02-2024 12:46-0400 Body height 167.[address] Kameron Caruso MD Work Phone: [facility] 08-02-2024 12:46-0400 Body mass index (BMI) [Ratio] 26.6 kg/m2 Dr. Kameron Caruso MD Work Phone: [facility] 08-02-2024 12:46-0400 Body weight [address] Kameron Caruso MD Work Phone: [facility] 06-26-2024 09:39-0500 Body mass index (BMI) [Ratio] 27.25 kg/m2 Emma Sotomayor APRN.VP BIOLOGY Work Phone: [facility] 06-26-2024 09:39-0500 Body weight 78.93 kg Emma Sotomayor APRN.VP BIOLOGY Work Phone: [facility] 06-26-2024 09:39-0500 Diastolic blood pressure 88 mm[Hg] Emma Tannhof [employer]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 COACH.VP BIOLOGY Work Phone: [facility] 06-26-2024 09:39-0500 Heart rate 93 /min Emma Tannhof [employer] SCHO[employer]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 COACH.VP BIOLOGY Work Phone: [facility] 06-26-2024 09:39-0500 Respiratory rate 16 /min Emma Tannhof HIGH SCHOOL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 COACH.VP BIOLOGY Work Phone: [facility] 06-26-2024 09:39-0500 SaO2% (BldA) [Mass fraction] 98 % Emma Tannhof HIGH SCHOOL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 COACH.VP BIOLOGY Work Phone: [facility] 06-26-2024 09:39-0500 Systolic blood pressure 144 mm[Hg] Emma Tannhof HIGH SCHOOL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 COACH.VP BIOLOGY Work Phone: [facility] 05-31-2024 08:56-0500 Diastolic blood pressure 84 mm[Hg] Kameron Caruso MD Work Phone: [facility] 05-31-2024 08:56-0500 Systolic blood pressure 136 mm[Hg] Kameron Caruso MD Work Phone: [facility] 05-31-2024 08:47-0500 Body mass index (BMI) [Ratio] 27.28 kg/m2 Kameron Caruso MD Work Phone: [facility] 05-31-2024 08:47-0500 Body weight 79 kg Kameron Caruso MD Work Phone: [facility] 05-31-2024 08:47-0500 Heart rate 100 /min Kameron Caruso MD Work Phone: [facility] 05-31-2024 08:47-0500 Respiratory rate 18 /min Kameron Caruso MD Work Phone: [facility] 11-28-2023 09:42-0400 Diastolic blood pressure 78 mm[Hg] Kameron Caruso MD Work Phone: [facility] 11-28-2023 09:42-0400 Systolic blood pressure 142 mm[Hg] Kameron Caruso MD Work Phone: [facility] 11-28-2023 09:41-0400 Body mass index (BMI) [Ratio] 27.82 kg/m2 Kameron Caruso MD Work Phone: [facility] 11-28-2023 09:41-0400 Body weight 80.56 kg Kameron Caruso MD Work Phone: [facility] 11-28-2023 09:41-0400 Heart rate 68 /min Kameron Caruso MD Work Phone: [facility] 11-28-2023 09:41-0400 Respiratory rate 18 /min Kameron Caruso MD Work Phone: [facility] 10-10-2023 07:31-0400 Body mass index (BMI) [Ratio] 28.35 kg/m2 David Dupree HIGH SCHOOL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 COACH.VP BIOLOGY Work Phone: [facility] 10-10-2023 07:31-0400 Body temperature 97.5 [degF] David Dupree HIGH SCHOOL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 COACH.VP BIOLOGY Work Phone: [facility] 10-10-2023 07:31-0400 Body weight 82.1 kg David Dupree HIGH SCHOOL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 COACH.VP BIOLOGY Work Phone: [facility] 10-10-2023 07:31-0400 Diastolic blood pressure 82 mm[Hg] David Dupree HIGH SCHOOL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 COACH.VP BIOLOGY Work Phone: [facility] 10-10-2023 07:31-0400 Heart rate 58 /min David Dupree HIGH SCHOOL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 COACH.VP BIOLOGY Work Phone: [facility] 10-10-2023 07:31-0400 Respiratory rate 18 /min David Dupree 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[employer]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 COACH.VP BIOLOGY Work Phone: [facility] 10-10-2023 07:31-0400 SaO2% (BldA) [Mass fraction] 100 % David Dupree H[employer] SCHOOL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 COACH.VP BIOLOGY Work Phone: [facility] 10-10-2023 07:31-0400 Systolic blood pressure 128 mm[Hg] David Dupree HIGH SCHOOL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 COACH.VP BIOLOGY Work Phone: [facility] 09-29-2023 14:14-0400 Body mass index (BMI) [Ratio] 29 kg/m2 Radha Levine HIGH SCHOOL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 COACH.VP BIOLOGY Work Phone: [facility] 09-29-2023 14:14-0400 Body temperature 97.81 [degF] Radha Levine HIGH SCHOOL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 COACH.VP BIOLOGY Work Phone: [facility] 09-29-2023 14:14-0400 Body weight 84 kg Radha Levine HIGH SCHOOL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 COACH.VP BIOLOGY Work Phone: [facility] 09-29-2023 14:14-0400 Diastolic blood pressure 91 mm[Hg] Radha Levine HIGH SCHOOL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 COACH.VP BIOLOGY Work Phone: [facility] 09-29-2023 14:14-0400 Heart rate 54 /min Radha Levine HIGH SCHOOL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 COACH.VP BIOLOGY Work Phone: [facility] 09-29-2023 14:14-0400 Respiratory rate 18 /min Radha Levine HIGH SCHOOL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 COACH.VP BIOLOGY Work Phone: [facility] 09-29-2023 14:14-0400 SaO2% (BldA) [Mass fraction] 99 % Radha Levine HIGH SCHOOL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 COACH.VP BIOLOGY Work Phone: [facility] 09-29-2023 14:14-0400 Systolic blood pressure 148 mm[Hg] Radha Levine 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 COACH.VP BIOLOGY Work Phone: [facility] 05-27-2022 09:42-0500 Body weight 83.83 kg Kameron Caruso MD Work Phone: [facility] 05-27-2022 09:42-0500 Diastolic blood pressure 84 mm[Hg] Kameron Caruso MD Work Phone: [facility] 05-27-2022 09:42-0500 Heart rate 68 /min Kameron Caruso MD Work Phone: [facility] 05-27-2022 09:42-0500 Respiratory rate 16 /min Kameron Caruso MD Work Phone: [facility] 05-27-2022 09:42-0500 Systolic blood pressure 136 mm[Hg] Kameron Caruso MD Work Phone: [facility] 03-02-2022 10:52-0400 Diastolic blood pressure 76 mm[Hg] Emma Sotomayor H[employer] SCHOOL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 COACH.VP BIOLOGY Work Phone: [facility] 03-02-2022 10:52-0400 Heart rate 92 /min Emma Canaleshof [employer]IGH SCHOOL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 COACH.VP BIOLOGY Work Phone: [facility] 03-02-2022 10:52-0400 Respiratory rate 18 /min Emma Sotomayor HIGH SCHOOL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 COACH.VP BIOLOGY Work Phone: [facility] 03-02-2022 10:52-0400 Systolic blood pressure 140 mm[Hg] Emma Sotomayor HIGH SCHOOL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 COACH.VP BIOLOGY Work Phone: [facility] 11-23-2021 09:39-0400 Body weight 83.1 kg Kameron Caruso MD Work Phone: [facility] 11-23-2021 09:39-0400 Diastolic blood pressure 80 mm[Hg] Kameron Caruso MD Work Phone: [facility] 11-23-2021 09:39-0400 Heart rate 84 /min Kameron Caruso MD Work Phone: [facility] 11-23-2021 09:39-0400 Respiratory rate 16 /min Kameron Caruso MD Work Phone: [facility] 11-23-2021 09:39-0400 Systolic blood pressure 138 mm[Hg] Kameron Caruso MD Work Phone: [facility] 10-16-2019 10:09-0400 BP Diastolic 72 mm[Hg] Santiago [facility] , [place] 10-16-2019 10:09-0400 BP Systolic 144 mm[Hg] [facility] , [place] 10-16-2019 10:09-0400 Pulse (Heart Rate) 62 /min [facility], [place] 10-16-2019 10:09-0400 Pulse Oximetry 98 % [facility] [place] , [place] 10-16-2019 10:09-0400 Respiratory Rate 18 /min Santiago Miller [facility] [place] , [place] 10-16-2019 09:15-0400 BMI (Body Mass Index) 29.44 kg/m2 Santiago Miller [facility], [place] 10-16-2019 09:15-0400 Body Temperature 97.81 [degF] Santiago Miller [facility] [place] 10-16-2019 09:15-0400 Body weight 85.28 kg Santiago Miller [facility] , [place] 10-16-2019 09:15-0400 Height 170.2 cm Santiago Miller [place], [place] 01-09-2019 12:06-0400 BP Diastolic 73 mm[Hg] Santiago Miller [facility] , [place] 01-09-2019 12:06-0400 BP Systolic 121 mm[Hg] Santiago Jose [facility] [place], [place] 01-09-2019 11:50-0400 Pulse (Heart Rate) 64 /min Santiago Miller [place], [place] 01-09-2019 11:50-0400 Pulse Oximetry 100 % Santiago Miller [place], [place] 01-09-2019 11:50-0400 Respiratory Rate 18 /min Santiago Miller [facility] 01-09-2019 10:28-0400 BMI (Body Mass Index) 28.82 kg/m2 Santiago Miller [facility], [place] 01-09-2019 10:28-0400 Body weight 83.46 kg Santiago Miller [place], [place] 01-09-2019 10:28-0400 Height 170.2 cm Santiago Miller [place], [place] 01-09-2019 10:27-0400 Body Temperature 97.5 [degF] Santiago Miller [place], [place] Encounters Encounter Date Encounter Type Care Provider Facility Start: 01-07-2025 ambulatory Kameron Lemus y:[facility] Start: 01-07-2025 Safia Ruelas MD - Veronica - [place] Start: 12-31-2024 End: 12-31-[address] Kameron Caruso MD Work Phone: [facility] Start: 12-31-2024 End: 12-31-2024 Dr. Safia Ruelas MD -[facility] Work Phone: Start: 12-24-2024 ambulatory Efewongbe Oleghe OLS Fa cility:[facility] Start: 12-24-2024 Safia SOMMER L - [place] Start: 12-17-2024 ambulatory Efewongbe Oleghe OLS Fa cility:[facility] Start: 12-17-2024 Safia SOMMER L - [place] Start: 12-10-2024 ambulatory Efewongbe Oleghe OLS Fa cility:[facility] Start: 12-10-2024 Safia SOMMER L - [place] Start: 12-03-2024 ambulatory Kameron Lemus y:[facility] Start: 12-03-2024 Safia Martin - [place] Start: 11-28-2024 End: 11-28-[address] Kameron Caruso MD Work Phone: [facility] Start: 11-28-2024 End: 11-28-2024 Bret WILKERSON -[facility] Work Phone: Start: 11-26-2024 ambulatory Efewongbe Oleghe OLS Fa cility:[facility] Start: 11-26-2024 Registered Referred Safia CANAS - [place] Start: 11-26-2024 Safia Martin - [place] Start: 11-25-2024 ambulatory Efewongbe Oleghe OLS Fa cility:[facility] Start: 11-25-2024 Registered Referred Safia Forde [place] Start: 11-25-2024 Safia SOMMER L - [place] Start: 11-20-2024 End: 11-20-[address] Kameron Caruso MD Work Phone: [facility] Start: 11-20-2024 End: 11-20-2024 [facility] Work Phone: Start: 11-19-2024 ambulatory Safia Ruelas OLS Fa cility:[facility] Start: 11-19-2024 Registered Referred Safia Torres Start: 11-19-2024 Safia Martin - [place] Start: 11-12-2024 ambulatory Efjean mariejosé antonio Ruelas OLS Fa cility:[facility] Start: 11-12-2024 Registered Referred Safia Torres Start: 11-12-2024 Safia Martin - [place] Start: 11-05-2024 ambulatory Safia Ruelas OLS Fa cility:[facility] Start: 11-05-2024 Registered Referred Safia Torres Start: 11-05-2024 Safia Martin - [place] Start: 10-30-2024 End: 10-30-[address] Kameron Caruso MD Work Phone: [facility] Start: 10-30-2024 End: 10-30-2024 [facility] Start: 10-30-2024 End: 10-30-2024 [facility]: Start: 10-29-2024 End: 10-29-[address] [facility] Start: 10-29-2024 End: 10-29-[address] Kameron Caruso MD Work Phone: [facility] Start: 10-29-2024 Registered Referred Safia Torres Start: 10-29-2024 End: 10-29-2024 Dr. Safia Ruelas MD -[facility] Work Phone: Start: 10-23-2024 ambulatory Safia Ruelas OLS Fa cility:[facility] Start: 10-23-2024 Registered Referred Safia Torres Start: 10-23-2024 Safia Torres Start: 10-22-2024 End: 10-22-2024 Patient encounter procedure Bretmya [facility] Work Phone: Start: 10-22-2024 End: 10-22-[address] Kameron Caruso MD Work Phone: [facility] Start: 10-22-2024 Registered Referred Safia Torres Start: 10-22-2024 End: 10-22-2024 [facility]: Start: 10-15-2024 ambulatory Safia Ruelas OLS Fa cility:[facility] Start: 10-15-2024 Registered Referred Safia Torres Start: 10-15-2024 Safia Torres Start: 10-09-2024 End: 10-09-[address] Kameron Caruso MD Work Phone: [facility] Start: 10-09-2024 End: 10-09-2024 Patient encounter procedure Bret Snyder [facility] Work Phone: Start: 10-09-2024 End: 10-09-2024 [facility] Work [facility]: Start: 10-08-2024 ambulatory Efsherry Ruelas OLS Fa cility:[facility] Start: 10-08-2024 Registered Referred Safia Torres Start: 10-08-2024 Safia Torres Start: 10-02-2024 End: 10-02-[address] Mj Benavides MD -[facility] Work Phone: Start: 10-02-2024 End: 10-02-2024 Dr. Mj Benavides MD -[facility] Work Phone: Start: 10-02-2024 End: 10-02-[address] Kameron Caruso MD Work Phone: [facility] Work Phone: Start: 10-01-2024 ambulatory Efewdesireebe Enricoe OLS Fa cility:[facility] Start: 10-01-2024 Registered Referred Safia Torres Start: 10-01-2024 Safia Torres Start: 09-29-2024 ambulatory Efewongbe Cheoghe OLS Fa cility:[facility] Start: 09-29-2024 Registered Referred Safia Torres Start: 09-29-2024 Safia Torres Start: 09-24-2024 ambulatory Efewongbe Oleghe OLS Fa cility:[facility] Start: 09-24-2024 Registered Referred Safia Torres Start: 09-24-2024 Safia Torres Start: 09-17-2024 ambulatory Kameron Caruso Facilit y:[facility] Start: 09-17-2024 Registered Referred Safia Torres Start: 09-17-2024 Safia Torres Start: 09-11-2024 End: 09-11-2024 ambulatory Kameron Caruso Facility:[facility] Start: 09-11-2024 End: 09-11-2024 Patient encounter procedure Bret WILKERSON -[facility] Work Phone: Start: 09-11-2024 End: 09-11-2024 Bret QUARLESC -[facility] Work Phone: Start: 09-10-2024 End: 09-10-[address] Safia Ruelas MD -[facility] Work Phone: Start: 09-10-2024 End: 09-10-2024 ambulatory Kameron [facility] [place] Start: 09-10-2024 Registered Referred Safia Ruelas MD -L - [place] Start: 09-10-2024 End: 09-10-2024 Dr. Safia Ruelas MD -[facility] Work Phone: Start: 08-30-2024 End: 08-30-2024 Telephone encounter Kameron Caruso MD Work Phone: [facility] [place] Comment on above: [facility] requesti ng verbal agree to follow Start: 08-15-2024 End: 09-09-2024 Evaluation and management of inpatient SILVINO HA DO Tyler Radha Start: 08-09-2024 Evaluation and manag ement of inpatient [place] Facility[facility] Start: 08-06-2024 Evaluation and manag ement of inpatient [facility] Start: 08-02-2024 End: 08-02-2024 ambulatory [facility] Facility:[facility] Start: 08-02-2024 End: 08-15-2024 Evaluation and [...] encounter Kameron Caruso MD Work Phone: [facility] [place] Comment on above: Faxed Referral Start: 06-28-2024 End: 07-01-2024 Telephone encounter Kameron Caruso MD Work Phone: [facility] Comment on above: medication not on cu rrent med list Start: 06-26-2024 End: 06-26-2024 Office outpatient visit 25 minutes Emma Sotomayor 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ACH.VP BIOLOGY Work Phone: [facility] [place] Comment on above: Atrial fibrillation, unspecified type (HCC) (Primary Dx); Hypothyroidism, unspecified type; Need for malaria prophylaxis Start: 06-26-2024 End: 06-26-2024 ambulatory EMMA CANALESCarmela Facility:[facility] Start: 06-25-2024 ambulatory KAMERON CARUSO Facil ity:[facility] Start: 06-24-2024 End: 06-24-2024 Telephone encounter Kameron Caruso MD Work Phone: [facility] [place] Comment on above: Patient Update Start: 06-11-2024 End: 06-11-2024 Telephone encounter Kameron Caruso MD Work Phone: [facility] [place] Comment on above: Results Start: 06-11-2024 End: 06-11-2024 ambulatory KAMERON CARUSO Facility:[facility] Start: 06-10-2024 End: 06-11-2024 Telephone encounter Kameron Caruso MD Work Phone: [facility] [place] Comment on above: Medication Problem Start: 05-31-2024 End: 05-31-2024 ambulatory KAMERON CARUSO Facility:[facility] Start: 05-31-2024 End: 05-31-2024 Patient encounter procedure Kameron Caruso MD Work Phone: [facility] [place] Comment on above: Essential hypertensi on, benign (Primary Dx); Type 2 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, without long-term current use of insulin (HCC); Chronic kidney disease, stage 3a (HCC); Hyperlipidemia, unspecified hyperlipidemia type; Hypothyroidism, unspecified type; Edema of left lower leg; Memory loss; Urinary incontinence, unspecified type; Irregular heart beat; Atrial fibrillation, unspecified type ([facility]) Start: 05-23-2024 End: 05-23-2024 [facility] Facility:[facility] Start: 11-28-2023 End: 11-28-2023 [facility] Facility:[facility] Start: 11-28-2023 End: 11-28-2023 Patient encounter procedure Kameron Caruso MD Work Phone: [facility] [place] Comment on above: 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, unspecified CKD stage, 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) (Primary Dx); Essential hypertension, benign; Chronic kidney disease, stage 3a ([facility]); Hyperlipidemia, unspecified hyperlipidemia type; Hypothyroidism, unspecified type; Edema of left lower leg; Memory loss; Type 2 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, without long-term current use of insulin ([facility]) Start: 11-27-2023 End: 11-27-2023 [facility] Facility:[facility] Start: 10-10-2023 End: 10-10-2023 [facility] Facility:[facility] Start: 10-10-2023 End: 10-10-2023 Office outpatient visit 25 minutes David Dupree APRN.VP BIOLOGY Work Phone: [facility] Comment on above: Rash (Primary Dx) Start: 09-29-2023 End: 09-29-2023 [facility] Facility:[facility] Start: 09-29-2023 End: 09-29-2023 Patient encounter procedure Radha Levine APRN.VP BIOLOGY Work Phone: [facility] Comment on above: Allergic contact lexi matitis due to plant (Primary Dx) Start: 09-19-2023 Refill Kameron nixon MD Work Phone: [facility] Comment on above: Refill Request Start: 04-08-2023 Telephone encounter Kameron bucio MD Work Phone: [address] [place] [address] Comment on above: Refill Request Start: 11-25-2022 Telephone encounter Kameron bucio MD Work Phone: [facility] [place] Comment on above: Patient Question Start: 05-27-2022 End: 05-27-2022 Patient encounter procedure Kameron Caruso MD Work Phone: [facility] [place] Comment on above: Essential hypertensi on, benign (Primary Dx); Hypothyroidism, unspecified type; Type 2 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, without long-term current use of insulin (HCC); Hyperlipidemia, unspecified hyperlipidemia type; Chronic kidney disease, stage 3a (HCC); Edema of left lower leg; Wellness examination Start: 05-27-2022 End: 05-27-2022 Patient encounter status Kameron Caruso MD Work Phone: [facility] Start: 04-11-2022 Refill Kameron nixon MD Work Phone: [facility] Comment on above: Refill Request Start: 03-02-2022 ambulatory Kameron nixon MD Work Phone: [facility] Comment on above: Back Pain Start: 03-02-2022 End: 03-02-2022 Patient encounter procedure Emma Sotomayor APRN.VP BIOLOGY Work Phone: [facility] Comment on above: Acute midline low ba ck pain without sciatica (Primary Dx) Start: 01-11-2022 Refill Mj ORTIZ RN.VP BIOLOGY Work Phone: [facility] Comment on above: Refill Request Start: 01-11-2022 Refill Kameron nixon MD Work Phone: [facility] [place] Comment on above: Refill Request Start: 12-16-2021 Telephone encounter Kameron bucio MD Work Phone: [facility] Comment on above: Diabetic Testing Sup plies Start: 11-23-2021 End: 11-23-2021 Refill Kameron Caruso MD Work Phone: [facility] [place] Comment on above: 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, unspecified CKD stage, 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) (Primary Dx); Essential hypertension, benign; Hyperlipidemia, unspecified hyperlipidemia type; Stage 3b chronic kidney disease (HCC); Hypothyroidism, unspecified type; Memory loss Start: 10-14-2021 Refill Kameron nixon MD Work Phone: [facility] [place] Comment on above: Refill Request Start: 09-27-2021 Telephone encounter Kameron bucio MD Work Phone: [facility] [place] Comment on above: information requeste d/rxs needed Start: 09-13-2021 Telephone encounter Kameron bucio MD Work Phone: [facility] [place] Comment on above: Patient Question; Me [...] Date Procedure Procedure Detail Performing Clinician Start: 01-07-2025 Blood count smear mc rscp w/mnl difrntl wbc count Dr. Kameron Caruso MD Work Phone: Start: 01-07-2025 Mean corpuscular hem oglobin concentration determination Dr. Kameron Caruso MD Work Phone: Start: 01-07-2025 Nucleated red blood cell count procedure Dr. Kameron Caruso MD Work Phone: Start: 01-07-2025 Platelet mean volume determination Dr. Kameron Caruso MD Work Phone: Start: 12-31-2024 Blood count smear mc rscp w/mnl difrntl wbc count Dr. Kameron Caruso MD Work Phone: Start: 12-31-2024 Mean corpuscular hem oglobin concentration determination Dr. Kameron Caruso MD Work Phone: Start: 12-31-2024 Nucleated red blood cell count procedure Dr. Kameron Caruso MD Work Phone: Start: 12-31-2024 Platelet mean volume determination Dr. Kameron Caruso MD Work Phone: Start: 12-24-2024 Blood count smear mc rscp [...] Phone: Start: 08-15-2024 Assay of magnesium Nase rin Nadine 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ACH-VP BIOLOGY Work Phone: Start: 08-15-2024 Glucose measurement, blood Christos Voss MD Work Phone: Start: 08-14-2024 Glucose measurement, blood Christos Voss MD Work Phone: Start: 08-14-2024 Glucose measurement, blood Christos Voss MD Work Phone: Start: 08-14-2024 Glucose measurement, blood Christos Voss MD Work Phone: Start: 08-14-2024 Assay of magnesium Abdoule rin Nadine 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-VP BIOLOGY Work Phone: Start: 08-13-2024 Glucose measurement, blood Christos Voss MD Work Phone: Start: 08-13-2024 Glucose measurement, blood Christos Voss MD Work Phone: Start: 08-13-2024 Glucose measurement, blood Christos Voss MD Work Phone: Start: 08-13-2024 Glucose measurement, blood Felicity Castellano MD Work Phone: Start: 08-13-2024 Assay of magnesium Abdoule rin Nadine 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 BIOLOGY Work Phone: Start: 08-13-2024 Glucose measurement, blood Felicity Castellano MD Work Phone: Start: 08-12-2024 Glucose measurement, blood Felicity Castellano MD Work Phone: Start: 08-12-2024 Glucose measurement, blood Felicity Castellano MD Work Phone: Start: 08-12-2024 Glucose measurement, blood Felicity Castellano MD Work Phone: Start: 08-12-2024 Assay of magnesium Abram Hwang Nadine 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 BIOLOGY Work Phone: Start: 08-12-2024 Glucose measurement, blood Felicity Castellano MD Work Phone: Start: 08-11-2024 Glucose measurement, blood Felicity Castellano MD Work Phone: Start: 08-11-2024 Glucose measurement, blood Felicity Castellano MD Work Phone: Start: 08-11-2024 Glucose measurement, blood Felicity Castellano MD Work Phone: Start: 08-11-2024 Assay of magnesium Abdoule rin Jaiden Nadine 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-VP BIOLOGY Work Phone: Start: 08-10-2024 Glucose measurement, blood Felicity Castellano MD Work Phone: Start: 08-10-2024 Glucose measurement, blood Felicity Castellano MD Work Phone: Start: 08-10-2024 End: 08-10-2024 Culture bacterial blood aerobic w/id isolates Radha Gr 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ACH-VP BIOLOGY Work Phone: Start: 08-10-2024 Glucose measurement, blood Felicity Castellano MD Work Phone: Start: 08-10-2024 End: 08-10-2024 Glucose measurement, blood Felicity Castellano MD Work Phone: Start: 08-10-2024 Glucose measurement, blood Felicity Castellano MD Work Phone: Start: 08-10-2024 Assay of magnesium Abram Hwang Nadine 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ACH-VP BIOLOGY Work Phone: Start: 08-10-2024 Glucose measurement, blood [...] Start: 08-09-2024 Assay of magnesium Abram Schulteameh [employer]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ACH-VP BIOLOGY Work Phone: Start: 08-09-2024 Glucose measurement, blood Felicity Castellano MD Work Phone: Start: 08-08-2024 Glucose measurement, blood Felicity Castellano MD Work Phone: Start: 08-08-2024 Culture bct isol&prs mptv id isolate ea urine Bella Cardenas 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ACH-VP BIOLOGY Work Phone: Start: 08-08-2024 EXTRA MICRO Bella Hwang Ma rtforrest 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 [employer]ACH-VP BIOLOGY Work Phone: Start: 08-08-2024 URINALYSIS REFLEX TO CULTURE Bella Cardenas 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ACH-[employer] BIOLOGY Work Phone: Start: 08-08-2024 Ct head/brain w/o co ntrast material Bella Cardenas 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ACH-[employer] BIOLOG[employer] Work Phone: Start: 08-08-2024 Glucose measurement, blood Felicity Castellano MD Work Phone: Start: 08-08-2024 End: 08-08-2024 Glucose measurement, blood Felicity Castellano MD Work Phone: Start: 08-08-2024 Assay of magnesium Abdoule scott Hwang Nadine 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ACH-VP BIOLOGY Work Phone: Start: 08-07-2024 Glucose measurement, blood Felicity Castellano MD Work Phone: Start: 08-07-2024 Glucose measurement, blood Felicity Castellano MD Work Phone: Start: 08-07-2024 Glucose measurement, blood Felicity Castellano MD Work Phone: Start: 08-07-2024 Glucose measurement, blood Felicity Castellano MD Work Phone: Start: 08-06-2024 Glucose measurement, blood Felicity Castellano MD Work Phone: Start: 08-06-2024 Assay of magnesium Abdoule scott Hwang Nadien 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ACH-[employer] BIOLOG[employer] Work Phone: Start: 08-06-2024 Glucose measurement, blood Felicity Castellano MD Work Phone: Start: 08-06-2024 Glucose measurement, blood Felicity Castellano MD Work Phone: Start: 08-06-2024 Radiologic exam swal low function contrast study Shanna Russ 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 BIOLOG[employer] Work Phone: Start: 08-06-2024 SPEECH MODIFIED KEAGAN UM SWALLOW Shanna Russ [employer]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ACH-VP BIOLOGY Work Phone: Start: 08-06-2024 Glucose measurement, blood Felicity Castellano MD Work Phone: Start: 08-05-2024 Glucose measurement, blood Felicity Castellano MD Work Phone: Start: 08-05-2024 Assay of magnesium Abdoule rin Jaiden Nadine 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 BIOLOGY Work Phone: Start: 08-05-2024 Glucose measurement, blood Felicity Castellano MD Work Phone: Start: 08-05-2024 Glucose measurement, blood Felicity Castellano MD Work Phone: Start: 08-05-2024 Echo tthrc r-t 2d w/wom-mode compl spec&colr d Taran Traore 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 BIOLOGY Work Phone: Start: 08-05-2024 Glucose measurement, blood Felicity Castellano MD Work Phone: Start: 08-05-2024 Assay of magnesium Abram Hwang Nadine 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-VP BIOLOGY Work Phone: Start: 08-05-2024 Glucose measurement, blood [...] Work Phone: Start: 08-04-2024 Assay of magnesium Abdoulmelanie Hwang Nadine 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ACH-VP BIOLOGY Work Phone: Start: 08-04-2024 Glucose measurement, blood Richard Mejia MD Work Phone: Start: 08-03-2024 Ct head/brain w/o co ntrast material Shaila Méndez PA-C Start: 08-03-2024 Sodium serum plasma or whole blood Shanna Denise MD Work Phone: Start: 08-03-2024 Glucose measurement, blood Richard Mejia MD Work Phone: Start: 08-03-2024 Radiologic exam abdo men 1 view Balbir Mccoy 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 BIOLOG[employer] Work Phone: Start: 08-03-2024 Glucose measurement, blood [...] brain brain stem w/o contrast material Taran Robb León 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ACH-VP BIOLOGY Work Phone: Start: 08-03-2024 ABORH TYPE RECONFIRMATION Cindy MONTANEZ Work Phone: Start: 08-03-2024 Assay of magnesium Abram Mccoy 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ACH-[employer] BIOLOGY Work Phone: Start: 08-02-2024 Glucose measurement, blood [...] Performed By: #### X M #### [facility] ([facility] [address] [place] [address] Start: 08-02-2024 EXTRA MICRO Taran Traore 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 BIOLOGY Work Phone: Start: 08-02-2024 Hemoglobin glycosylated a1c Balbir Mccoy 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-VP BIOLOGY Work Phone: Start: 08-02-2024 Hepatic function panel Balbir Mccoy 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ACH-VP BIOLOGY Work Phone: Start: 08-02-2024 Iadna s aureus ampli fied probe tq Balbir Mccoy 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 BIOLOGY Work Phone: Start: 08-02-2024 URINALYSIS REFLEX TO CULTURE Taran Traore 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ACH-VP BIOLOGY Work Phone: Start: 08-02-2024 Urnls dip stick/tabl et reagent auto microscopy Taran Traore 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 BIOLOGY Work Phone: Start: 08-02-2024 SARS-CoV-2, Influenz a [...] Author Start: 08-15-2025 Complete blood count Hemoglobin/Hematocrit [facility] Start: 08-15-2025 Creatinine measurement Serum Creatinine [facility] Start: 08-02-2025 Thyroid stimulating hormone measurement [facility] Start: 06-26-2025 Annual PCP Team Chronic Disease Visit Annual PCP Team Chronic Disease Visit [facility] Start: 05-31-2025 Annual PCP Team Chronic Disease Visit Annual PCP Team Chronic Disease Visit [facility] Start: 05-31-2025 Covid-19 Vaccine ( season) Covid-19 Vaccine ( season) [facility] Comment on above: Postponed from 01/14/2024 (Declined at t his time) Start: 05-31-2025 Pneumococcal Vaccine: 50+ (2 of 2 - PPSV23) Pneumococcal Vaccine: 50+ (2 of 2 - PPSV23) [facility] Comment on above: Postponed from 12/19/2019 (Declined at t his time) Start: 05-23-2025 Creatinine measurement Serum Creatinine [facility] Start: 05-23-2025 Hepatitis B screening Urine Albumin:Creatinine Ratio [facility] Start: 05-23-2025 Hepatitis B surface antibody level LDL Cholesterol [facility] Start: 02-02-2025 Hemoglobin A1c measurement HbA1C [facility] Start: 01-13-2025 Influenza vaccination [facility] Start: 01-03-2025 Glaucoma screening Dilated Retinal Exam [facility] Start: 12-24-2024 End: 12-24-2024 Patient encounter procedure 12/24/2024 9:20 AM EDT Office Visit [facility] [address] [place] [address] Kameron Caruso MD [address] [place] [address] 6 month follow up [facility] [place] Comment on above: 6 month follow up Start: 11-28-2024 End: 02-27-2025 Comprehensive metabolic 2000 panel - Serum or Plasma COMPREHENSIVE METABOLIC PANEL Lab Routine Essential hypertension, benign Chronic kidney disease, stage 3a (HCC) Hyperlipidemia, unspecified hyperlipidemia type Expected: 11/28/2024 (Approximate), Expires: 02/27/2025 [facility] Work Phone: Comment on above: Expected: 11/28/2024 (Approximate), Expi res: 02/27/2025 Start: 11-28-2024 End: 02-27-2025 Hemoglobin A1c in Blood HEMOGLOBIN A1C Lab Routine Expected: 11/28/2024 (Approximate), Expires: 02/27/2025 [facility] Comment on above: Expected: 11/28/2024 (Approximate), Expi res: 02/27/2025 Start: 11-28-2024 End: 02-27-2025 Lipid 1996 panel - Serum or Plasma LIPID PANEL BASIC Lab Routine Essential hypertension, benign Hyperlipidemia, unspecified hyperlipidemia type Expected: 11/28/2024 (Approximate), Expires: 02/27/2025 [facility] Comment on above: Expected: 11/28/2024 (Approximate), Expi res: 02/27/2025 Start: 11-28-2024 End: 02-27-2025 Thyrotropin [Units/volume] in Serum or Plasma THYROID STIMULATING HORMONE Lab Routine Hypothyroidism, unspecified type Expected: 11/28/2024 (Approximate), Expires: 02/27/2025 [facility] Comment on above: Expected: 11/28/2024 (Approximate), Expi res: 02/27/2025 Start: 11-27-2024 Annual PCP Team Chronic Disease Visit Annual PCP Team Chronic Disease Visit [facility] Start: 11-27-2024 Anxiety Screening Anxiety Screening [facility] Start: 11-27-2024 Depression Screening Depression Screening [facility] Start: 11-27-2024 RSV Vaccine (1 - 1-dose 60+ series) RSV Vaccine (1 - 1-dose 60+ series) [facility] Comment on above: Postponed from 2004 (Declined at t his time) Start: 11-27-2024 RSV Vaccine (1 - 1-dose 75+ series) RSV Vaccine (1 - 1-dose 75+ series) [facility] Comment on above: Postponed from 10/26/2019 (Declined at t his time) Start: 11-26-2024 Creatinine measurement Serum Creatinine [facility] Start: 11-26-2024 Hepatitis B surface antibody level LDL Cholesterol [facility] Start: 11-20-2024 Hemoglobin A1c measurement [facility]C [facility] Start: 11-11-2024 Influenza [facility] Comment on above: Postponed from 01/14/2024 (Declined at t his time) Start: 10-08-2024 End: 10-08-2024 ambulatory [facility] Start: 10-02-2024 Evaluation of diagnostic study results 12 Lead EKG performed by BMS [facility] Start: 08-02-2024 [facility] Start: 08-02-2024 SARS-CoV-2, Influenza & RSV (PCR) SARS-CoV-2, Influenza & RSV (PCR) [facility] Start: 08-02-2024 End: 08-02-2024 [facility] Start: 08-02-2024 Electrocardiographic procedure [facility] Start: 08-02-2024 Oxygen therapy [facility] Start: 07-24-2024 End: 10-23-2024 Thyrotropin [Units/volume] in Serum or Plasma THYROID STIMULATING HORMONE Lab Routine Hypothyroidism, unspecified type Expected: 07/24/2024, Expires: 10/23/2024 [facility] Work Phone: Comment on above: Expected: 07/24/2024, Expires: Start: 07-24-2024 End: 10-23-2024 Thyroxine (T4) free [Mass/volume] in Serum or Plasma T4 FREE/FREE THYROXINE Lab Routine Hypothyroidism, unspecified type Expected: 07/24/2024, Expires: 10/23/2024 [facility] Comment on above: Expected: 07/24/2024, Expires: Start: 06-25-2024 End: 06-25-2024 Patient encounter procedure 06/25/2024 9:40 AM EST Office Visit [facility] [address] [place], [place] [id number] Kameron Caruso MD [address] [place], [place] [id number] 1 mo f/u, new dx afib. [facility] Comment on above: 1 mo f/u, new dx afib. Start: 06-11-2024 End: 06-11-2024 Patient encounter procedure 06/11/2024 8:50 AM EST Office Visit Cardiology [address] [place], [place] [id number] Atrial fibrillation, unspecified type (HCC) [I48.91] Cardiology Comment on above: Atrial fibrillation, unspecified type (H CC) [I48.91] Start: 05-30-2024 Annual PCP Team Chronic Disease Visit Annual PCP Team Chronic Disease Visit [facility] Start: 05-30-2024 End: 08-29-2024 Comprehensive metabolic 2000 panel - Serum or Plasma COMPREHENSIVE METABOLIC PANEL Lab Routine Type 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, unspecified CKD stage, unspecified whether assisted insulin use (HCC) Essential hypertension, benign Chronic kidney disease, stage 3a (HCC) Hyperlipidemia, unspecified hyperlipidemia type Expected: 05/30/2024 (Approximate), Expires: 08/29/2024 [facility] Work Phone: Comment on above: Expected: 05/30/2024 (Approximate), Expi res: 08/29/2024 Start: 05-30-2024 Covid-19 Vaccine () Covid-19 Vaccine () [facility] Comment on above: Postponed from 01/13/2023 (Declined at t his time) Start: 05-30-2024 End: 08-29-2024 Hemoglobin A1c in Blood HEMOGLOBIN A1C Lab Routine Type 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, unspecified CKD stage, unspecified whether assisted insulin use (HCC) Expected: 05/30/2024 (Approximate), Expires: 08/29/2024 [facility] Comment on above: Expected: 05/30/2024 (Approximate), Expi res: 08/29/2024 Start: 05-30-2024 Hepatitis C screening Hepatitis C Screening [facility] Comment on above: Postponed from 1962 (Declined at t his time) Start: 05-30-2024 End: 08-29-2024 Lipid 1996 panel - Serum or Plasma LIPID PANEL BASIC Lab Routine Type 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, unspecified CKD stage, 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) Essential hypertension, benign Hyperlipidemia, unspecified hyperlipidemia type Expected: 05/30/2024 (Approximate), Expires: 08/29/2024 [facility] Comment on above: Expected: 05/30/2024 (Approximate), Expi res: 08/29/2024 Start: 05-30-2024 End: 08-29-2024 Microalbumin/Creatinine [Mass Ratio] in Urine ALBUMIN/CREATININE RATIO, URINE Lab Routine Type 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, unspecified CKD stage, unspecified whether assisted insulin use (HCC) Expected: 05/30/2024 (Approximate), Expires: 08/29/2024 [facility] Comment on above: Expected: 05/30/2024 (Approximate), Expi res: 08/29/2024 Start: 05-30-2024 Pneumococcal Vaccine: 65+ (2 of 2 - PPSV23 or PCV20) Pneumococcal Vaccine: 65+ (2 of 2 - PPSV23 or PCV20) [facility] Comment on above: Postponed from 12/19/2019 (Declined at t his time) Start: 05-30-2024 End: 08-29-2024 Thyrotropin [Units/volume] in Serum or Plasma THYROID STIMULATING HORMONE Lab Routine Hypothyroidism, unspecified type Expected: 05/30/2024 (Approximate), Expires: 08/29/2024 [facility] Comment on above: Expected: 05/30/2024 (Approximate), Expi res: 08/29/2024 Start: 05-30-2024 End: 05-30-2024 Patient encounter procedure 05/30/2024 9:40 AM EST Office Visit [facility] [address] [place] [address] Kameron Caruso MD [address] [place] [address] 6 mo f/u [facility] Comment on above: 6 mo f/u Start: 05-29-2024 Hemoglobin A1c measurement HbA1C [facility] Start: 05-16-2024 Creatinine measurement Serum Creatinine [facility] Start: 05-16-2024 Hepatitis B screening Urine Albumin:Creatinine Ratio [facility] Start: 05-16-2024 Hepatitis B surface antibody level LDL Cholesterol [facility] Start: 05-15-2024 Advance Directive Discussion Advance Directive Discussion [facility] Start: 01-14-2024 Influenza vaccination [facility] Start: 01-14-2024 [facility] Start: 01-04-2024 Glaucoma screening Dilated Retinal Exam [facility] Start: 01-04-2024 Hepatitis C antibody, confirmatory test Dilated Retinal Exam [facility] Start: 11-28-2023 End: 11-28-2023 Patient encounter procedure 11/28/2023 9:40 AM EDT Office Visit Family [facility] [address] [place] [address] Kameron Caruso MD [address] [place] [address] 6 mo follow up [facility] Comment on above: 6 mo follow up Start: 11-26-2023 ANNUAL PCP TEAM CHRONIC DISEASE VISIT ANNUAL PCP TEAM CHRONIC DISEASE VISIT [facility] Start: 11-26-2023 BP CONTROLLED (<130/80) BP CONTROLLED (<130/80) [facility] Start: 11-23-2023 Complete blood count Hemoglobin/Hematocrit [facility] Start: 11-23-2023 HEMOGLOBIN/HEMATOCRIT HEMOGLOBIN/HEMATOCRIT [facility] Start: 11-23-2023 Hepatitis B surface antibody level LDL CHOLESTEROL [facility] Start: 11-23-2023 SERUM CREATININE SERUM CREATININE [facility] Start: 11-14-2023 Hemoglobin A1c measurement [facility]C [facility] Start: 05-27-2023 ANNUAL PCP TEAM CHRONIC DISEASE VISIT ANNUAL PCP TEAM CHRONIC DISEASE VISIT [facility] Start: 05-27-2023 COVID-19 VACCINE (2 - Booster for Alyssa series) COVID-19 VACCINE (2 - Booster for Alyssa series) [facility] Comment on above: Postponed from 09/17/2020 (Declined at t his time) Start: 05-27-2023 HEPATITIS C SCREENING HEPATITIS C SCREENING [facility] Comment on above: Postponed from 1962 (Declined at t his time) Start: 05-25-2023 Hemoglobin A1c/Hemoglobin.total in Blood HBA1C [facility] Start: 05-19-2023 HEMOGLOBIN/HEMATOCRIT HEMOGLOBIN/HEMATOCRIT [facility] Start: 05-19-2023 Hepatitis B surface antibody level LDL CHOLESTEROL [facility] Start: 05-19-2023 SERUM CREATININE SERUM CREATININE [facility] Start: 05-15-2023 Advance Directive Discussion Advance Directive Discussion [facility] Start: 05-15-2023 Behavioral Health Screening Behavioral Health Screening [facility] Start: 03-02-2023 ANNUAL PCP TEAM CHRONIC DISEASE VISIT ANNUAL PCP TEAM CHRONIC DISEASE VISIT [facility] Start: 01-13-2023 Covid-19 Vaccine ( season) Covid-19 Vaccine ( season) [facility] Start: 01-13-2023 Influenza vaccination [facility] Start: 12-27-2022 Hepatitis C antibody, confirmatory test DILATED RETINAL EXAM [facility] Start: 11-24-2022 End: 01-24-2023 CBC panel - Blood by Automated count CBC Lab Routine Essential hypertension, benign Hypothyroidism, unspecified type Expected: 11/24/2022 (Approximate), Expires: 01/24/2023 [facility] Work Phone: Comment on above: Expected: 11/24/2022 (Approximate), Expi res: 01/24/2023 Start: 11-24-2022 End: 01-24-2023 Comprehensive metabolic 2000 panel - Serum or Plasma COMP METABOLIC PANEL Lab Routine Essential hypertension, benign Type 2 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, without long-term current use of insulin (HCC) Hyperlipidemia, unspecified hyperlipidemia type Expected: 11/24/2022 (Approximate), Expires: 01/24/2023 [facility] Work Phone: Comment on above: Expected: 11/24/2022 (Approximate), Expi res: 01/24/2023 Start: 11-24-2022 End: 01-24-2023 Hemoglobin A1c in Blood HGB A1C Lab Routine Type 2 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, without long-term current use of insulin (HCC) Expected: 11/24/2022 (Approximate), Expires: 01/24/2023 [facility] Work Phone: Comment on above: Expected: 11/24/2022 (Approximate), Expi res: 01/24/2023 Start: 11-24-2022 End: 01-24-2023 Lipid 1996 panel - Serum or Plasma LIPID PANEL BASIC Lab Routine Essential hypertension, benign Type 2 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, without long-term current use of insulin (HCC) Hyperlipidemia, unspecified hyperlipidemia type Expected: 11/24/2022 (Approximate), Expires: 01/24/2023 [facility] Work Phone: Comment on above: Expected: 11/24/2022 (Approximate), Expi res: 01/24/2023 Start: 11-24-2022 End: 01-24-2023 Thyrotropin [Units/volume] in Serum or Plasma TSH BLD Lab Routine Hypothyroidism, unspecified type Expected: 11/24/2022 (Approximate), Expires: 01/24/2023 [facility] Work Phone: Comment on above: Expected: 11/24/2022 (Approximate), Expi res: 01/24/2023 Start: 11-23-2022 3 comp foot exam completed [facility] Start: 11-23-2022 ANNUAL PCP TEAM CHRONIC DISEASE VISIT ANNUAL PCP TEAM CHRONIC DISEASE VISIT [facility] Start: 11-23-2022 Diabetic foot examination Diabetic Foot Exam [facility] Start: 11-20-2022 Hepatitis B screening URINE ALBUMIN:CREATININE RATIO [facility] Start: 11-20-2022 Hepatitis B surface antibody level LDL CHOLESTEROL [facility] Start: 11-20-2022 SERUM CREATININE SERUM CREATININE [facility] Start: 11-16-2022 Hemoglobin A1c/Hemoglobin.total in Blood HBA1C [facility] Start: 11-11-2022 Influenza vaccination INFLUENZA (#1) [facility] Comment on above: Postponed from 01/13/2022 (Declined at t his time) Start: 05-26-2022 End: 07-26-2022 CBC panel - Blood by Automated count CBC Lab Routine Essential hypertension, benign Stage 3b chronic kidney disease (HCC) Expected: 05/26/2022 (Approximate), Expires: 07/26/2022 [facility] Work Phone: Comment on above: Expected: [...] disease (HCC) Expected: 05/26/2022 (Approximate), Expires: 07/26/2022 [facility] Work Phone: Comment on above: Expected: 05/26/2022 (Approximate), Expi res: 07/26/2022 Start: 05-26-2022 End: 07-26-2022 Hemoglobin A1c in Blood HGB A1C Lab Routine Type 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, unspecified CKD stage, unspecified whether assisted insulin use (HCC) Expected: 05/26/2022 (Approximate), Expires: 07/26/2022 [facility] Work Phone: Comment on above: Expected: 05/26/2022 (Approximate), Expi res: 07/26/2022 Start: 05-26-2022 End: 07-26-2022 Lipid 1996 panel - Serum or Plasma LIPID PANEL BASIC Lab Routine Essential hypertension, benign Hyperlipidemia, unspecified hyperlipidemia type Expected: 05/26/2022 (Approximate), Expires: 07/26/2022 [facility] Work Phone: Comment on above: Expected: 05/26/2022 (Approximate), Expi res: 07/26/2022 Start: 05-26-2022 End: 07-26-2022 Thyrotropin [Units/volume] in Serum or Plasma TSH BLD Lab Routine Hypothyroidism, unspecified type Expected: 05/26/2022 (Approximate), Expires: 07/26/2022 [facility] Work Phone: Comment on above: Expected: 05/26/2022 (Approximate), Expi res: 07/26/2022 Start: 05-23-2022 Hemoglobin A1c/Hemoglobin.total in Blood HBA1C [facility] Start: 05-18-2022 ANNUAL PCP TEAM CHRONIC DISEASE VISIT ANNUAL PCP TEAM CHRONIC DISEASE VISIT [facility] Start: 05-17-2022 Hepatitis B surface antibody level LDL CHOLESTEROL [facility] Start: 05-17-2022 SERUM CREATININE SERUM CREATININE [facility] Start: 05-15-2022 ADVANCE DIRECTIVE DISCUSSION ADVANCE DIRECTIVE DISCUSSION [facility] Start: 01-13-2022 Influenza vaccination [facility] Start: 01-11-2022 Hepatitis C antibody, confirmatory test DILATED RETINAL EXAM [facility] Start: 11-14-2021 Hemoglobin A1c/Hemoglobin.total in Blood HBA1C [facility] Start: 11-06-2021 Screening for malignant neoplasm of breast [facility] Start: 11-05-2021 3 comp foot exam completed DIABETIC FOOT EXAM [facility] Start: 11-05-2021 Adult depression screening assessment DEPRESSION SCREENING [facility] Start: 11-04-2021 Hepatitis B screening URINE ALBUMIN:CREATININE RATIO [facility] Start: 10-15-2021 Hepa vaccine adult dose for intramuscular use HEPATITIS A VACCINE ADULT IM Immunization/Injection Routine Need for vaccination Expected: 10/15/2021 [facility] Work Phone: Comment on above: Expected: 10/15/2021 Start: 10-15-2021 Tdap vaccine 7 yrs/> im TDAP VACCINE AGE 7+ IM Immunization/Injection Routine Need for vaccination Expected: 10/15/2021 [facility] Work Phone: Comment on above: Expected: 10/15/2021 Start: 05-15-2021 ADVANCE DIRECTIVE DISCUSSION ADVANCE DIRECTIVE DISCUSSION [facility] Start: 05-15-2021 DEPRESSION ASSESSMENT DEPRESSION ASSESSMENT [facility] Start: 10-23-2020 PNEUMOCOCCAL: 65+ (2 - PPSV23 if available, else PCV20) PNEUMOCOCCAL: 65+ (2 - PPSV23 if available, else PCV20) [facility] Start: 10-23-2020 PNEUMOCOCCAL: 65+ (2 - PPSV23 or PCV20) PNEUMOCOCCAL: 65+ (2 - PPSV23 or PCV20) [facility] Start: 10-16-2020 HEMOGLOBIN/HEMATOCRIT HEMOGLOBIN/HEMATOCRIT [facility] Start: 09-17-2020 COVID-19 VACCINE (2 - Booster for Alyssa series) COVID-19 VACCINE (2 - Booster for Alyssa series) [facility] Start: 12-19-2019 Pneumococcal vaccination [facility] Start: 12-19-2019 Pneumococcal Vaccine: 65+ (2 - PPSV23 or PCV20) Pneumococcal Vaccine: 65+ (2 - PPSV23 or PCV20) [facility] Start: 12-19-2019 PNEUMOCOCCAL: 65+ (2 - PPSV23 or PCV20) PNEUMOCOCCAL: 65+ (2 - PPSV23 or PCV20) [facility] Start: 11-08-2019 Screening for malignant neoplasm of colon [facility] Start: 10-26-2019 [facility] Start: 01-13-2019 Influenza vaccination Flu vaccine (#1) [place], [place] Start: 12-23-2018 Annual Wellness Visit (AWV) Annual Wellness Visit (AWV) [place] Start: 2009 DEXA (modify frequency per FRAX score) DEXA (modify frequency per FRAX score) [place] Start: 2009 Pneumococcal 65+ years Vaccine (1 of 1 - PPSV23) Pneumococcal 65+ years Vaccine (1 of 1 - PPSV23) [place] Start: 2009 Pneumococcal 65+ years Vaccine (1 of 2 - PCV13) Pneumococcal 65+ years Vaccine (1 of 2 - PCV13) [place] Start: 10-26-2007 Annual Wellness Visit (AWV) Annual Wellness Visit (AWV) [place] Start: 2004 Hepatitis B Vaccine (1 of 3 - Risk 3-dose series) Hepatitis B Vaccine (1 of 3 - Risk 3-dose series) [facility] Start: 2004 RSV Vaccine (1 - 1-dose 60+ series) RSV Vaccine (1 - 1-dose 60+ series) [facility] Start: 10-26-1999 Screening for osteoporosis DEXA (modify frequency per FRAX score) [place] Start: 1994 Breast cancer screen Breast cancer screen [place] Start: 1994 Colon cancer screen colonoscopy Colon cancer screen colonoscopy [place] Start: 1994 Screening for malignant neoplasm of breast Breast cancer screen [place] Start: 1994 Screening for malignant neoplasm of colon Colon cancer screen colonoscopy [place] Start: 1994 Shingles Vaccine (1 of 2) Shingles Vaccine (1 of 2) [place] Start: 1984 Lipid screen Lipid screen [place] Start: 1965 Screening for malignant neoplasm of cervix [facility] Start: 10-26-1963 DTaP/Tdap/Td vaccine (1 - Tdap) DTaP/Tdap/Td vaccine (1 - Tdap) [place] Start: 10-26-1963 Third diphtheria, tetanus and acellular pertussis (DTaP) vaccination [facility] Start: 10-26-1963 Urine microalbumin profile [facility] Start: 1962 BP CONTROLLED (<130/80) BP CONTROLLED (<130/80) [facility] Start: 1962 HEPATITIS C SCREENING HEPATITIS C SCREENING [facility] Start: 1954 Lipid panel Lipid screen [place], [place] Start: 1944 Creatinine measurement Creatinine monitoring [place], [place] Start: 1944 Creatinine monitoring Creatinine monitoring [place], [place] Start: 1944 Hepatitis C screen Hepatitis C screen [place], [place] Start: 1944 Hepatitis C screening [facility] Start: 1944 Potassium monitoring Potassium monitoring [place] Start: 1944 Screening for osteoporosis [facility] Start: 1944 Tetanus vaccination [facility] End: 01-09-2019 Blood glucose - POCT Blood glucose - POCT Point of Care Testing Routine One Time for 1 Occurrences starting 01/09/2019 until 01/09/2019 [place] Comment on above: One Time for 1 Occurrences starting 12/14 until 01/09/2019 ECG COMPLETE [facility] Comment on above: Ordered: 05/31/2024 End: 05-31-2025 Echocardiography ECHO Cardiology Routine Atrial fibrillation, unspecified type (HCC) 1 Occurrences starting 05/31/2024 until 05/31/2025 [facility] Comment on above: 1 Occurrences starting 05/31/2024 until 05/31/2025 Patient referral [facility] Work Phone: End: 01-09-2019 Pulse Oximetry Spot Check Pulse Oximetry Spot Check Respiratory Care Routine One Time for 1 Occurrences starting 01/09/2019 until [facility]/09/2019 [facility]: One Time for 1 Occurrences starting 12/14 until 01/09/2019 End: 08-02-2024 PV FLUOROSCOPY OR [facility] End: 08-02-2024 Standard ECG [facility] [place] [facility] Immunizations Immunization Date Immunization Notes Care Provider Fa [facility] 07-23-2020 SARS-CoV-2 (COVID-19 ) Ad26 vaccine, recombinant SILVINO HA DO [place] Comment on above: Result Comment: 2024: [id number] 02-27-2020 influenza, high dose seasonal, preservative-free Kameron Caruso MD Work Phone: [facility] 02-27-2020 influenza virus vaccine, unspecified formulation Kameron Caruso MD Work Phone: [employer] 10-24-2019 pneumococcal conjuga te vaccine, 13 valent Kameron Caruso MD Work Phone: [facility] 10-24-2019 zoster vaccine recombinant Kameron Caruso MD Work Phone: [facility] 07-25-2019 influenza virus vaccine, unspecified formulation SILVINO HA DO [employer] 07-25-2019 influenza, seasonal, injectable Kameron Caruso MD Work Phone: [facility] 07-25-2019 zoster vaccine recombinant Kameron Caruso MD Work Phone: [facility] 04-13-2015 influenza virus vaccine, unspecified formulation SILVINO HA DO [facility] 05-01-2014 influenza virus vaccine, unspecified formulation SILVINO HA DO [facility] 05-01-2014 influenza, high dose seasonal, preservative-free Kameron Caruso MD Work Phone: [facility] 02-22-2012 influenza virus vaccine, unspecified formulation Kameron Caruso MD Work Phone: [facility] Work Phone: 03-19-2007 influenza virus vaccine, unspecified formulation Kameron Caruso MD Work Phone: [facility] Work Phone: Payers Date Payer Category Payer Medicare [id number] 2024 Unknown [id number] 2024 Self-pay 2018 Medicare [employer]AGE [facility]-MEDICARE ADVANTAGE xxxxxxxxxxx 2018-Present [phone] [address] [place] [address] xxxxxxxxxxx [id number] 2018 Unknown [id number] 2013 Medicare [employer] [place] [id number] 2013-Present [phone] [address] [place] [address] [facility] [id number] 2013 Medicare [id number] 2013 Medicare (Managed Care) [id number]. [id number] 2013 Medicare [id number] 1944 Unknown [id number] 1944 Unknown [id number] .732 1944 Unknown [id number] .627 1944 Unknown [id number] [id number] .594 1944 Unknown [id number] [id number] .594 Unknown [id number] [id number] .462 Unknown [id number] [id number] .462 Unknown [id number] 2.16.840.1.354988.3.579.2 .462 Unknown [id number] 2.16.840.1.363835.3.579.2 .462 Unknown [id number] [id number] .462 Unknown [id number] 2.16.840.1.307056.3.579.2 .462 Unknown [id number] 2.16.840.1.377081.3.579.2 .462 Unknown [id number] 2.16.840.1.339258.3.579.2 .462 Unknown [id number] 2.16.840.1.039199.3.579.2 .462 Unknown [id number] 2.16.840.1.847704.3.579.2 .462 Unknown [id number] 2.16.840.1.365064.3.579.2 .462 Unknown [id number] 2.16.840.1.444705.3.579.2 .462 Unknown [id number] 2.16.840.1.692399.3.579.2 .462 Unknown [id number] 2.16.840.1.399996.3.579.2 .462 Unknown [id number] 2.16.840.1.521029.3.579.2 .462 Unknown [id number] 2.16840.1.155142.3.579.2 .462 Unknown [id number] 2.840.1.017776.3.579.2 .462 Unknown [id number] 2.840.1.740089.3.579.2 .462 Unknown [id number] 2.840.1.287465.3.579.2 .462 Unknown [id number] 2.840.1.121003.3.579.2 .462 Unknown [id number] 2.840.1.212703.3.579.2 .462 Unknown [id number] 2.840.1.206862.3.579.2 .462 Unknown [id number] 2.840.1.325646.3.579.2 .462 Unknown [id number] 2.840.1.104883.3.579.2 .462 Unknown [id number] 2.16840.1.279283.3.579.2 .462 Unknown [id number] 2.16840.1.143788.3.579.2 .462 Unknown [id number] 2.16840.1.049379.3.579.2 .462 Unknown [id number] 2.16.840.1.712007.3.579.2 .462 Unknown [id number] 2.840.1.761721.3.579.2 .462 Unknown [id number] 2.16.840.1.874265.3.579.2 .462 Unknown [id number] 2.16.840.1.112021.3.579.2 .462 Unknown [id number] 2.16.840.1.976399.3.579.2 .462 Social History Date Type Detail Facility Start: 01-09-2019 End: 08-02-2024 Tobacco smoking status NHIS Never smoker [facility] Start: 01-09-2019 End: 11-25-2022 Alcohol intake Never [facility] Work Phone: Start: 12-24-2018 History SDOH Alcohol Frequency 1 [place], [place] Start: 1945 Sex Assigned At Not on file [facility] Start: 10-16-2019 Alcohol intake Lifetime non-d hortencia (finding) [place], [place] Exposure to SARS-CoV -2 (event) [facility] Start: 05-18-2021 End: 06-26-2024 Alcohol intake Current non-drinker of alcohol (finding) [facility] Start: 11-13-2021 End: 03-02-2022 Exposure to SARS-CoV-2 (event) Not sure [facility] Start: 02-02-2011 End: 03-02-2022 Tobacco use and exposure Smokeless tobacco non-user [facility] Start: 11-25-2022 End: 11-28-2023 History of Social function [facility] Work Phone: Adult Depression Screening Assessment 0 [facility] Work Phone: Start: 06-22-2005 End: 08-02-2024 Sex Female (finding) [facility] Start: 1945 Sex Assigned At Female [facility] Sexual Orientation [facility] Medical Equipment Procedure Code Equipment Code Equipment Original Text Equipment Identifier Dates [id number], [id number], [id number] Start: 11-30-2020 End: 04-08-2023 Comment on above: [...] Facility 09-09-2024 Functional Status Room check performed [facility] 09-09-2024 Functional Status [facility] 09-09-2024 Functional Status Skin Care Prev entative Intervention(s) heel(s)s elevated [facility] 09-08-2024 Functional Status [facility] 09-08-2024 Functional Status [facility] 09-06-2024 Functional Status 11pm-7am [facility] 09-06-2024 Functional Status Antiembolism S tocking On/Re-applied bilateral knee high [facility] 09-05-2024 Functional Status Oral Care Maximum wilfred tance [facility] 09-05-2024 Functional Status [facility] 09-05-2024 Functional Status Done [facility] 09-04-2024 Functional Status [facility] 09-04-2024 Functional Status [facility] 09-03-2024 Functional Status NPO Status Maintained [facility] 09-03-2024 Functional Status None [facility] 09-03-2024 Functional Status [facility] 08-29-2024 Functional Status [facility] 08-29-2024 Functional Status [facility] 08-27-2024 Functional Status Orthotics, Dev ice Worn Per Schedule Yes [facility] 08-27-2024 Functional Status [facility] 08-26-2024 Functional Status [facility] 08-23-2024 Functional Status [facility] 08-23-2024 Functional Status Breakfast Percent 25 [facility] 08-20-2024 Functional Status [facility] 08-19-2024 Functional Status [facility] 08-16-2024 Functional Status Single level h ome, basement laundry [facility] 08-16-2024 Functional Status Outside Stairs Rail Rail on left going up [facility] 08-15-2024 Functional Status Sensory Defici ts Speech deficit [facility] 10-14-2014 Are you deaf, or do you have serious difficulty hearing No [facility] 10-14-2014 Are you blind, or do you have serious difficulty seeing, even when wearing glasses No [facility] 10-14-2014 Do you have serious difficulty walking or climbing stairs No [facility] 10-14-2014 Do you have difficul ty dressing or bathing No [facility] 10-14-2014 Because of a physica l, mental, or emotional condition, do you have difficulty doing errands alone such as visiting a physician's office or shopping No [facility] Mental Status Date Assessment Result Facility 09-09-2024 Mental Status Does not interact [facility] 09-08-2024 Mental Status [facility] 09-08-2024 Mental Status [facility] 08-02-2024 Cognitive function Awake;Alert;F ollows Commands [facility] Work Phone: 10-14-2014 Because of a physica l, mental, or emotional condition, do you have serious difficulty concentrating, remembering, or making decisions No [facility] Clinical Notes 11-03-2020 to 10-02-2024 Note Date & Type Note Facility 10-02-2024 Evaluation note Diagnosis Onset Date Resolution Acute ischemic right MCA stroke acute October 02, 2024 9:29am Essential hypertension acute 2024 9:29am Hyperlipidemia acute October 02, 2024 9:29am Paroxysmal atrial fibrillation with RVR acute October 02, 2024 9:29am [facility] Work Phone: [phone] 268-261204-28-2025 Note Discharge Instructions Thank you for allowing [...] KAMERON CARUSO MD When:Within 3-7 days Where:[address] [place] [address]- Additional Information: Please schedule follow up PCP appointment for after discharge from SNF, Bring discharge instructions with you Follow Up with RIMMA POWERS MD When:10/08/2024 04:00 PM EDT Where:[facility] ([address], [place]) Additional Information: Neurosurgeon The Following Activity and [...] standard right Seat cushion, 99 month(s), [facility] [id number], 09/02/24 8:22:00 EDT Transfer of Care Wound [...] depending on your insurance coverage. Check with yourSportStream company about what is covered. Keeping follow-up [...] 08/04/2017 Document Revised: 05/04/2018 Document Reviewed: 08/04/2017 [employer] Patient Education 2020 [employer] Additional Information VACCINATE! IT SAVES LIVES! Members of the community who have not yet received the COVID-19 vaccine and would like to receive it can visit one of [facility] vaccine clinics. There are many vaccine clinic locations within the [facility]. For locations and available times, please visit https://gettheshot.coronavirus.[place].gov/. It is important to note that some COVID mobile vaccine clinics are held outdoors and may be canceled in rainy or stormy conditions. To learn more about pediatric vaccinations (ages 5-11), we invite you to visit the [facility] webpage. https://www.Your Practical Solutionss.org/pages/9909-Hziyv-Uctcxlawmnm-Visphsclqi-Twfmn-Hwh stions.htmlTo learn more about the COVID-19 vaccine, we invite you to visit the CDC website for a list of frequently asked questions.https://www.cdc.gov/coronavirus/2019-ncov/vaccines/faq.html [facility] Patient Portal Access Instructions: Stay connected with your healthcare team and access your personal medical information anytime with the [facility] [employer] Patient Portal. Please follow the directions below to create your [facility] account: 1.Access the email account you provided upon registration to the hospital/physician office.2.Look for an invitation email from [facility].3.Open the email and access the invitation link: AcceptInvitation to [facility] [employer].4.Fill in the required richards to create your account. To access your account, visit [employer]/HuStreamhart. Click the blue button labeled "Access Patient Portal" and then log in with the username and password that you created in the steps above. You will be able to view your test results, lab results, a summary of your visits, upcoming appointments and more. There is also a convenient messaging option where you can send secure messages to your Exentvider. In addition, you will have the ability to download any documents or summaries to your computer and/or send the information securely to a physician. Remember that your healthcare information is confidential, so carefully consider who you will allowto register on the [facility] [employer] Patient Portal for access to your information. You can also access the [facility] [employer] Patient Portal on the [facility] Anywhere dahlia. Simply click on "Patient Portal" and then log into your account. If you would like to receive a full copy of your medical records, please contact the [facility] Medical Records Department by calling [phone], Monday through Monday between 8 a.m. and [...] Call your local pharmacy or go to http://bit.Beautylish/8M7Ku7o to find one close to you.3.Make use of household items: Use cat litter or old coffee grounds to dispose medications if other options arenot available. Mix your drugs with these household products, seal them in an airtight container andthrow it into the garbage. Call [facility]: [phone] to be sure your drugs can be [...] aware that I should contact my doctor. Patient/Technical Writer And Editor Signature: Date/Time: Relationship to Patient: Witness Name/Signature: Date/Time: [facility] [id number] Note Discharge Instructions Thank you for allowing [...] KAMERON CARUSO MD When:Within 3-7 days Where:[address] [place] [address]- Additional Information: Please schedule follow up PCP appointment for after discharge from SNF, Bring discharge instructions with you Follow Up with RIMMA POWERS MD When:10/08/2024 04:00 PM EDT Where:[facility] ([address], [place]) Additional Information: Neurosurgeon The Following Activity and [...] standard right Seat cushion, 99 month(s), Tyler [id number], 09/02/24 8:22:00 EDT Transfer of Care Wound [...] depending on your insurance coverage. Check with your[employer] company about what is covered. Keeping follow-up [...] Document Reviewed: 08/04/2017 Elsevier Patient Education 2020 [employer] Additional Information VACCINATE! IT SAVES LIVES! Members of the community who have not yet received the COVID-19 vaccine and would like to receive it can visit one of [facility] vaccine clinics. There are many vaccine clinic locations within the [facility]. For locations and available times, please visit https://gettheshot.coronavirus.[place].gov/. It is important to note that some COVID mobile vaccine clinics are held outdoors and may be canceled in rainy or stormy conditions. To learn more about pediatric vaccinations (ages 5-11), we invite you to visit the [facility] webpage. https://www.[facility].org/pages/8082-Avllm-Hdnqmbndaht-Tgthmnvuxi-Yvgui-Kvb stions.htmlTo learn more about the COVID-19 vaccine, we invite you to visit the CDC website for a list of frequently asked questions.https://www.cdc.gov/coronavirus/2019-ncov/vaccines/faq.html [employer] [facility] Patient Portal Access Instructions: Stay connected with your healthcare team and access your personal medical information anytime with the [employer] [facility] [employer] Patient Portal. Please follow the directions below to create your [employer] [facility] [employer] account: 1.Access the email account you provided upon registration to the hospital/physician office.2.Look for an invitation email from [facility].3.Open the email and access the invitation link: AcceptInvitation to [facility].4.Fill in the required richards to create your account. To access your account, visit [employer]/7 [employer] StudiosOneChart. Click the blue button labeled "Access Patient Portal" and then log in with the username and password that you created in the steps above. You will be able to view your test results, lab results, a summary of your visits, upcoming appointments and more. There is also a convenient messaging option where you can send secure messages to your p Soshowisevider. In addition, you will have the ability to download any documents or summaries to your computer and/or send the information securely to a physician. Remember that your healthcare information is confidential, so carefully consider who you will allowto register on the [facility] Patient Portal for access to your information. You can also access the [facility] One[facility] Patient Portal on the InsideMapswhere dahlia. Simply click on "Patient Portal" and then log into your account. If you would like to receive a full copy of your medical records, please contact the [facility] Medical Records Department by calling [phone], Monday through Monday between 8 a.m. and [...] Call your local pharmacy or go to http://TIMPIK.Beautylish/4G2Fc5m to find one close to you.3.Make use of household items: Use cat litter or old coffee grounds to dispose medications if other options arenot available. Mix your drugs with these household products, seal them in an airtight container andthrow it into the garbage. Call [facility]: [phone] to be sure your drugs can be [...] been reviewed and explained to me and ARMAND Roe JUNE L understand my current condition and have read and understand these discharge instructions. I have received a written copy of the plan/instructions. If I have questions, I am aware that I should contact my doctor. Patient/Technical Writer And Editor Signature: Date/Time: Relationship to Patient: Witness Name/Signature: Date/Time: Tyler [id number] Physical medicine and rehab Discharge summary Date [...] in discharge valuation. She was admitted to [facility] inpatient rehab unit from [facility] stay 08/02 [...] Ordered -- 08/15/24 17:18:00 EDT, AMI HEATON APRN-VP BIOLOGY, [facility]ity per policy Physical Exam Vitals [...] oral tablet)1 tab(s) PEG tube every day. [id number] Microgram PEG tube once a day. metoprolol [...] KAMERON CARUSO MD When:Within 3-7 days Where:[address] [place] [address]- Additional Information: Please schedule follow up PCP appointment for after discharge from SNF, Bring discharge instructions with you Follow Up with RIMMA POWERS MD When:10/08/2024 04:00 PM EDT Where:[facility] ([address], [place]) Additional Information: Neurosurgeon Follow Up Appointments No qualifying data available. Follow Up Labs/Studies Discharge Labs No Follow-up Labs Discharge Studies No Follow-up Studies Discharge Diet No qualifying data available. Discharge Activity No qualifying data available. Condition on Discharge Stable Discharge Disposition shelter facility Information Provided To Patient and family Time Spent Greater than 35 minutes Digitally Signed by SILVINO HA DO on 09/09/2024 01:46 PM [facility] [id number] Nurse Progress note Nursing GG Entered On: 09/09/2024 10:55 EDT Performed On: 09/09/2024 10:55 EDT by Abigail Rodas RN Nursing GG's OT GG Grid Eating : Not Completed Abigail Rodas RN - 09/09/2024 10:55 EDT Digitally Signed by Abigail Rodas RN on 09/09/2024 10:55 AM [facility] [id number] Nurse Progress note Nursing GG Entered On: 09/08/2024 17:39 EDT Performed On: 09/08/2024 17:39 EDT by Rob Alarcon RN Nursing GG's OT GG Grid Eating : Not Completed Oral Hygiene : Not Completed Toilet Hygiene : Substantial/Maximal Assistance Toilet Transfer : Substantial/Maximal Assistance Rob Alarcon RN - 09/08/2024 17:39 EDT Digitally Signed by Rob Alarcon RN on 09/08/2024 05:39 PM [facility] [id number] Nurse Progress note Pt had 250ml residual, 12:30pm bolus was held! Digitally Signed by Rob Alarcon RN on 09/08/2024 12:47 PM [facility] GarciaDpobmcbf02-06-2458 Physical medicine and rehab Progress note Rehab [...] candidate. She was then transferred to a [facility] for further management. CT of head [...] Rate64(SEP 05 16:46)64(SEP 05 16:46)85(SEP 05 09:40) SWC706(SEP 05 16:36)138(SEP 05 16:36)H 158(SEP 05 09:52) [...] SILVINO HA DO on 09/06/2024 12:34 PM [facility] Dis[facility] Patient Education 09/05/2024 14:15:00 [...] depending on your insurance coverage. Check with your[employer]Stream company about what is covered. Keeping follow-up [...] 08/04/2017 Document Revised: 05/04/2018 Document Reviewed: 08/04/2017 [employer] Patient Education 2020 [employer]. Follow Up Care 08/15/2024 08:51:25 With:RIMMA POWERS MD Address: [facility] ([address], [place]) When:10/08/2024 16:00:00 Comments:Neurosurgeon With:JONNIE BANSAL MD Address: [facility] When: Unknown Comments:GI, No appointment needed until PEG is ready to be removed or concerns arise With:KAMERON CARUSO MD Address: [address] [place] [address]- When:3-7 days Comments:Please schedule follow up PCP [...] less than 3 seconds. Ongoing hemiparesis VITALS UarlsuLeurKKXkhitZXGbS3CFE6HldiYq(kg) 09/05 09:5236.3--018744WN 09/05 09:40----85----RA 09/04 23:3236.6--354258IZ 09/04 21:2436.5--801196EO 09/04 16:01----71----RA 24 Hr Tmax: 36.6 at [...] tab(s), PEG, Daily, 08/15/24 17:09:00 EDT balsam [place]-castor oil topical (Venelex 788 mg-87 mg/g topical [...] None Problems (6) CVA (cerebral vascular accident) (144041965) Diabetes mellitus (474911162) Dysphagia (67379051) Hyperlipidemia (85202016) Hypertension (4022920385) Osteoarthritis (9953661316) ASSESSMENT/PLAN: Right basal ganglia hemorrhage, status post [...] CATHERINE NEWMAN on 09/05/2024 04:55 PM [facility] [id number] Physical medicine and rehab Progress note Subjective [...] area Neuro: Left upper extremity hemiparesis VITALS EjxxicHtbgRCHvnijWQQlI3DPW7AfpnSi(kg) 09/04 23:3236.6--874921QL 09/04 21:2436.5--221668KM 09/04 16:01----72----RA 09/04 12:10--------97RA 09/04 10:5435.9--463617NE 24 Hr Tmax: 36.6 at 09/04 23:32 [...] tab(s), PEG, Daily, 08/15/24 17:09:00 EDT balsam [place]-castor oil topical (Venelex 788 mg-87 mg/g topical [...] SBP (mmHg) < 110, 1st dose location: [facility], 1, 08/15/24 17:09:00 EDT Active PRN [...] 2 minutes, REPEAT x1., 1st dose location: [facility], 0, 08/15/24 1... glucose (Dextrose 50% [...] None Problems (6) CVA (cerebral vascular accident) (371196085) Diabetes mellitus (453220604) Dysphagia (33582264) Hyperlipidemia (30891257) Hypertension (6567787409) Osteoarthritis (3019404781) ASSESSMENT/PLAN: Acute right basal ganglia hemorrhage with [...] NANDO HUTTON DO on 09/05/2024 10:12 AM [facility]bm[facility]ox[facility]-58-2918 Physical medicine and rehab Progress note Rehab [...] candidate. She was then transferred to a [facility] for further management. CT of head [...] 80 mg, 1 tab(s), PEG, Daily. balsam [place]-castor oil topical: 1 dahlia, Topical, qHS. docusate: [...] Rate64(SEP 03 15:52)64(SEP 03 15:52)90(SEP 03 08:28) FAF831(SEP 04 05:38)112(SEP 04 05:38)127(SEP 03 08:00) DBP70(SEP [...] HA DO on 09/04/2024 11:55 AM [facility] GarciaAyhapgse32-34-3093 Note Subjective Patient states she is doing [...] area Neuro: Left upper extremity hemiparesis VITALS QmqeozUiulCNOvxkpRIQzN7UJL6TlkqNp(kg) 09/03 21:4136.4--922774BD 09/03 15:52----64----RA 09/03 08:46 RA 09/03 08:28----90---- 09/03 08:0036.4--236034YC 24 Hr Tmax: 36.4 at 09/03 21:41 [...] SBP (mmHg) < 110, 1st dose location: [facility], , 08/15/24 17:09:00 EDT oxybutynin (oxybutynin [...] 2 minutes, REPEAT x1., 1st dose location: [facility], 0, 08/15/24 1... glucose (Dextrose 50% [...] None Problems (6) CVA (cerebral vascular accident) (587952806) Diabetes mellitus (039813602) Dysphagia (68243034) Hyperlipidemia (38748723) Hypertension (5427475114) Osteoarthritis (1599306061) ASSESSMENT/PLAN: Acute right basal ganglia hemorrhage with [...] HUTTON DO on 09/05/2024 08:57 AM [facility] GarciaMtudxwpu52-23-0618 Note Subjective Patient states that she is [...] area Neuro: Left upper extremity hemiparesis VITALS BxpwsuFlovGFAhkzbMYJmC5ZJJ0TnwmJr(kg) 09/03 00:2636.3--191165RE 09/02 21:5136.2--709389LD 09/02 16:56----88--98RA 09/02 10:40 RA 09/02 09:0936.0--922590EJ 24 Hr Tmax: 37.0 at 09/02 05:55 [...] tab(s), PEG, Daily, 08/15/24 17:09:00 EDT balsam [place]-castor oil topical (Venelex 788 mg-87 mg/g topical [...] SBP (mmHg) < 110, 1st dose location: [facility], , 08/15/24 17:09:00 EDT oxybutynin (oxybutynin [...] 2 minutes, REPEAT x1., 1st dose location: [facility], 0, 08/15/24 1... glucose (Dextrose 50% [...] None Problems (6) CVA (cerebral vascular accident) (212479574) Diabetes mellitus (959578194) Dysphagia (22786238) Hyperlipidemia (41910068) Hypertension (0247261308) Osteoarthritis (9726748782) ASSESSMENT/PLAN: Acute right basal ganglia hemorrhage with [...] NANDO HUTTON DO on 09/05/2024 08:57 AM [facility] DyeStzqelui57-18-2355 Note* Exam Date Time Procedure Performing Provider Status 09/02/24 2:[address] Head or Brain w/o Contrast Brenda MCCLELLAN MD; Auth (Verified) [id number] ORIGINAL HISTORY: Lethargy COMPARISON: No TECHNIQUE: Routine [...] 09/02/2024 3:10:44 PM Ordering Provider: SILVINO Scott [id number] Telephone encounter Note* Telephone Encounter - Fouzia Miller LPN - 08/30/2024 10:09 AM EDT Marya with [facility] notified. [facility]04-18-2025 Miscellaneous Notes* Telephone Encounter - Fouzia Miller LPN - 08/30/2024 10:09 AM EDT Marya with [facility] notified. * Telephone Encounter - Mj Glover APRN.CNP - 08/30/2024 9:19 AM EDT Please let know that Dr. Caruso's team will follow orders. Okay to proceed. Mj Glover APRN.GARRETT * Telephone Encounter - Jaiden Paulino RN - 08/30/2024 9:07 AM EDT [facility] reports patient was in [facility] with dx: stroke, [facility] home with [facility] SN PT OT [facility] & [facility]. Asking if pcp agreeable to follow for HHC. Please phone Marya with verbal: [phone] documented in [facility] Telephone encounter Note * Telephone Encounter - Mj Glover APRN.CNP - 08/30/2024 9:19 AM EDT Please let HH know that Dr. Caruso's team will follow HH orders. Okay to proceed. Mj Glover APRN.CNP [facility]04-18-2025 Telephone encounter Note* Telephone Encounter - Jaiden Paulino RN - 08/30/2024 9:07 AM EDT [facility] reports patient was in [facility] with dx: stroke, and transferred to [facility]. [facility] home with [facility] SN PT OT [facility] & [facility]. Asking if pcp agreeable to follow for HHC. Please phone Marya with verbal: [phone] [facility]04-14-2025 Note REFERRING PHYSICIAN: Silvino Ha DO. CONSULTING PSYCHOLOGIST: Matthew Gibson, PhD. REASON FOR REFERRAL: Neuropsychological exam. HISTORY OF PRESENT ILLNESS: Ms. Acuna is a 78-year-old right-handed white female admitted to [facility] [facility] on 08[facility]15[facility]24 after developing left-sided weakness and slurred speech. Initially seen at [facility] where brain CT was negative.CTA then showed a right middle cerebral artery branch infarction, but she was outside of the TNK window. She was transferred to [facility] for further management. 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 She underwent a thrombectomy on 08/02/2024 with revascularization successful. She developed dysphagia and is on NPO. She has a PEG tube placed.Serial scanning including MRI shows no further progression of the infarction or bleed, but did showa small right cerebellar acute infarction. Cardiac workup was benign. A1c was elevated at 7.4. In the hospital, she developed UTI, placed on ceftriaxone after cultures found Klebsiella. She developedblood in her stool and an upper endoscopy showed gastric ulcer with erosion. Eliquis was stopped and she was taking only 81 mg aspirin. PAST MEDICAL HISTORY: Includes coronary artery disease, type 2 diabetes, atrial fibrillation, hypertension, hyperlipidemia. The patient has several mild concussions suffered after a career in [employer]. No residual deficits reported. No other DOOR MAKER injuries or illnesses. MENTAL HEALTH HISTORY: No [...] of NPO. and Mrs. Acuna live in [place]. 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 She has a high school diploma from her hometown in [place], [place]. TEST RESULTS: I used the Cognistat, [...] be determined. MATTHEW GIBSON, PhD GM/NTS JOB#: [id number] DICTATION ID#: [id number] Digitally Signed by MATTHEW GIBSON PhD on 08/27/2024 08:21 AM Tyler [id number] Note* Exam Date Time Procedure Performing Provider Status 08/25/24 1:46 PM XR Hand and Wrist 6 Views Left Buck DUNNE DO; Auth (Verified) [id number] ORIGINAL EXAMINATION: 3 XRAY VIEWS OF THE [...] Date: 08/25/2024 2:27:26 PM Ordering Provider: JACKLYN Dyelawn04-13-2025 Note* Exam Date Time Procedure Performing Provider Status 08/25/24 1:45 PM XR Shoulder Minimum 2 Views Left JAMAR DUNNE DO; Auth (Verified) [id number] ORIGINAL EXAMINATION: TWO XRAY VIEWS OF THE [...] Views Left JAMAR DUNNE DO; Auth (Verified) [id number] ORIGINAL EXAMINATION: TWO XRAY VIEWS OF THE [...] 08/25/2024 2:26:11 PM Ordering Provider: JACKLYN Scott [id number] Note* Exam Date Time Procedure Performing Provider Status 08/18/24 3:08 PM XR Chest 1 View Contributor_system, FUJ I; Auth (Verified) [id number] ORIGINAL EXAMINATION: ONE XRAY VIEW OF THE [...] Plan noteExtracted from: Title:Clinical Document Author:EZEQUIEL HUSTON RN-VP BIOLOGY Date:08/16/24 Acute Inpatient Rehab Histor y and Physical Date of Service: 08/16/2024 Date of Admission: 08/15/2024 Attending Physician: Dr. Ha [employer] 1.1 left body involvement, right brain stroke Etiologic Diagnosis Hemorrhagic infarct involving right basal ganglia, mass effect with effacement of right lateral ventricle, tiny infarct in right cerebellum History of Present Illness 78-year-old female noted to home in inpatient rehab from [facility] stay 08/02 - 08/15 who is [...] candidate. She was then transferred to a [facility] for further management. CT of head [...] feedings. Patient deemed medically stable transferred to [facility] inpatient rehab unit for physical and occupational [...] with spouse, first- floor set up. Primary Health Information Technologist: Self. Safe place to go: Yes. Lives [...] Rate80(AUG 15 20:06)80(AUG 15 20:06)80(AUG 15 20:06) UGP543(AUG 16 00:03)128(AUG 16 00:03)140(AUG 15 17:47) DBP76(AUG 16 00:03)76(AUG 16 00:03)80(AUG 15 17:47) 36hr Labs 08/15 1805 Blood Glucose, [id number] Blood Glucose, Jxagnkkzu311L Blood Glucose TSee Flowsheet Assessment/Plan Debility and [...] and it is both accurate and complete. [facility] 04-04-2025 Physical medicine and rehab Consult note INPATIENT REHAB MEDICAL CONSULT DATE OF ADMISSION: 08/16/2024 CC: Acute right basal hemorrhage HISTORY OF PRESENT ILLNESS: This is a 78-year-old female admitted to [facility] inpatient rehab unit from [facility] stay 08/02 [...] was deemed medically stable and transferred to [facility] inpatient rehab unit for physical and occasional [...] Rate80(AUG 15 20:06)80(AUG 15 20:06)80(AUG 15 20:06) OOT782(AUG 16 00:03)128(AUG 16 00:03)140(AUG 15 17:47) DBP76(AUG [...] reviewed. 36hr Labs / 1805 Blood Glucose, [id number] Blood Glucose, [id number] Blood Glucose TSee Flowsheet ASSESSMENT AND PLAN: [...] will follow during acute rehabilitation stay at [facility] Inpatient Rehab Unit with the goal [...] CATHERINE NEWMAN on 08/17/2024 04:53 PM Tyler [id number] Physical medicine and rehab History and physical [...] noted to home in inpatient rehab from [facility] stay 08/02 -08/15 who is past [...] candidate. [facility] showed [...] feedings. Patient deemed medically stable transferred to [facility] inpatient rehab unit for physical and occupational [...] with spouse, first- floor set up. Primary Health Information Technologist: Self. Safe place to go: Yes. Lives [...] Rate80(AUG 15 20:06)80(AUG 15 20:06)80(AUG 15 20:06) [id number](AUG 16 00:03)128(AUG 16 00:03)140(AUG 15 17:47) DBP76(AUG 16 00:03)76(AUG 16 00:03)80(AUG 15 17:47) 36hr Labs 08/15 1805 Blood Glucose, [id number] Blood Glucose, Vkhnaiccq866S Blood Glucose TSee Flowsheet Assessment/Plan Debility and [...] accurate and complete. 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 - If used tea tree farmer, initial PEG should be changed in 6-12 months depending on tube condition. - No plans for repeat outpatient EGD at this time based on clinical status Jonnie Mccabe MD Division of Gastroenterology, Hepatology, and Nutrition Clinical Fellow PGY-4 Pager: [phone] * Plan of Care - Manisha Cheema [...] or what the specific medication was. DaughterKeagan [phone] would be able to answer questions. Catherine [...] oropharyngeal swallow function to most appropriately guide KINGSBURY MACHINE OPERATOR plan of care Outcome: Met Goal: [...] readiness for diet advancement Outcome: Met Problem: KING[place]Y MACHINE OPERATOR - Cognition Goal: Orientation Log - [...] better assess deficits and most appropriately guide KINGSBURY MACHINE OPERATOR plan of care Outcome: Met Goal: [...] of Care: 1. Diet: NPO. Advancement per team/KING[place]URY MACHINE OPERATOR recommendation 2. Ordered TF: Glucerna 1.5 [...] readiness for diet advancement Outcome: Ongoing Problem: KING[place]Y MACHINE OPERATOR - Cognition Goal: Orientation Log - [...] better assess deficits and most appropriately guide KINGSBURY MACHINE OPERATOR plan of care Outcome: Ongoing * Nursing Notes - Aniyah Torre RN - 08/02/2024 6:13 PM EDT On admission to [facility], from [place] a [...] Pt transferred to [facility] via cart accompanied by Denae ENRIQUEZ. T on room air, tele and pulse ox. * Nursing Notes - Sopihe Jenkins RN - 08/02/2024 3:44 PM EDT [...] under emergency consent. SURGEON(S): Prema Ramos MD APPIAN DEVELOPER(S): None ANESTHESIA: Monitored anesthesia care DESCRIPTION OF [...] Freeclimb 70/Serjio 7 was advanced over a [employer] microcatheter which was advanced over a synchro [...] - 08/02/2024 3:26 PM EDT Lindsay Acuna ([id number]) PRE OPERATIVE DIAGNOSIS Cerebral infarction due to [...] - Primary ANESTHESIOLOGIST Anesthesiologist: Tameka Ruth MD SUPERINTENDENT SYSTEM OPERATION: Bebo Barboza APRN-SUPERINTENDENT SYSTEM OPERATION SURGICAL STAFF Vault Clerk: Rachell Ruffin RN Street Car Mechanic: Paulina Muñiz; Radha Morales COMPLICATIONS None ESTIMATED BLOOD LOSS Minimal SPECIMENS No specimen sent * No specimens in log * Prema Ramos MD August 02, 2024 3:26 PM documented in this encounterU [facility] History of Present illness Narrative* OWEN Benavides - 08/15/2024 9:01 AM EDT Care Management Discharge Note Selected Continued Care - Admitted Since 08/02/2024 Destination Coordination complete. Service Provider Services Address Phone Fax Patient Preferred [address] [phone] -- -- Internal Comment last updated by OWEN Benavides 08/15/2024 0901 Report fax: [phone] Transport Request Mode of Transfer: [facility] Name of Discharge Transport Company: [facility] ETA: 08/15/2024 @ 1030 Patient medically stable for discharge per physician/medical team. Pt has neurology appointment scheduled. Pt/ to schedule appointment with PCP. Patient/Technical Writer And Editor remain in agreement withthe discharge plan. BULMARO Allen Radiologic Technician * OWEN Benavides - 08/14/2024 3:17 PM [...] numbersfor RN report tomorrow morning. BULMARO Allen Radiologic Technician * Marybeth Ayoub - 08/14/2024 2:51 PM EDT Care Management Progress Note Transportation for discharge arranged Mode of Transfer: (P) [facility] Name of Discharge Transport Company: (P) [facility] ETA: (P) 08/15/2024 @ 1030 Pick-up from [facility] 1032/A Destination Tyler ALVARADO [address] [facility] [address] OWEN Morrell Radiologic Technician Underground Electrician [phone] * Jazzy Aguiar - 08/14/2024 9:47 AM [...] position Mobility Assessment/Intervention: Supine to Sit Mobility Douglas Level: Supine->Sit: moderate assist (50% patient effort) Physical Assist: Supine->Sit: 2 person assist Bed Features/Set-up: Supine->Sit: Head of bed elevated, Use of bed rail Skilled Rationale: Verbal cues, Tactile cues, Hand placement, Positioning, Technique of activity Skilled Intervention/Details: Supine->Sit: Cues for technique of transfer and pt needing increased assistance for managing legs and trunk to EOB positioning Transfer Assessment/Intervention: Sit to Stand Transfer Douglas Level: Sit->Stand: moderate assist (50% patient effort) [...] hand held support Stand to Sit Transfer Douglas Level: Stand->Sit: moderate assist (50% patient effort) Physical Assist: Stand->Sit: 2 person assist Assistive Device: Stand->Sit: gait belt, hand held assist Skilled Rationale: Verbal cues, Tactile cues, Hand placement, Positioning, Controlled descent for sitting Skilled Intervention/Details: Stand->Sit: Cues for positioning with BSC and recliner, pt provided bilat hand held support and needing increased support for managing a controlled descent Bed-Chair Transfer Douglas Level: Bed<->Chair: maximum assist (25% patient effort) [...] managing L side during transfer Toilet Transfer Douglas Level: Toilet: moderate assist (50% patient effort) [...] upright gaze when standing Outcome Score(s): CURRENT [facility] Daily Activity Inpatient Short Form Putting on/Taking Off Lower Body Clothin - Total Assistance Bathin - A Lot of Assistance Toiletin - Total Assistance Putting on/Taking Off Upper Body Clothin - A Little Assistance Groomin - A Little Assistance Eatin - Total Assistance CURRENT -[facility] Activity Raw Score: 11 CURRENT -[facility] Activity Functional Limitation/Modifier: 70.42% Currently Impaired in [...] in reach. Time In: 916 Time Out: 0947 Total Visit Time: 30 minutes Total Treatment [...] person, Oriented to place, Oriented to situation ("[facility]" "hospital" "May" "2024" "stroke") Following Commands: Follows [...] blocking Mobility Assessment/Intervention: Supine to Sit Mobility Douglas Level: Supine->Sit: moderate assist (50% patient effort) [...] sitting) Transfer Assessment/Intervention: Sit to Stand Transfer Douglas Level: Sit->Stand: moderate assist (50% patient effort) Physical Assist: Sit->Stand: 2 person assist Assistive Device: Sit->Stand: gait belt Skilled Rationale: Arm in arm, Patellar block, Ischial assist, Facilitate anterior shift, Full extension to upright positioning/posture, Finding/maintaining midline positioning Skilled Intervention/Details: Sit->Stand: repeat cues to avoid significant L lean with improvement last standing. x1 from EOB, x2 from BSC Stand to Sit Transfer Douglas Level: Stand->Sit: moderate assist (50% patient effort) Physical Assist: Stand->Sit: 2 person assist Assistive Device: Stand->Sit: gait belt Skilled Rationale: Arm in arm, Controlled descent for sitting Skilled Intervention/Details: Stand->Sit: last trial assisted R hand to recliner arm rest and ongoing cues for wt shift to R Bed-Chair Transfer Douglas Level: Bed<->Chair: maximum assist (25% patient effort) [...] Mobility Assessment/Intervention: Stairs Assessment/Intervention: Outcome Score(s): CURRENT [facility] Basic Mobility Inpatient Short Form Turning over in bed: 2 - A Lot of Assistance Moving from lying on back to sittin - Total Assistance Moving to and from bed to chair: 1 - Total Assistance Sitting/standing from chair: 2 - A Lot of Assistance Walk in hospital room: 1 - Total Assistance Climbing 3-5 steps with a railin - Total Assistance CURRENT [facility] Mobility Raw Score: 8 CURRENT [facility] Mobility Functional Limitation: 86.62% Impaired in Basic [...] 10 Treating Therapist: Shaina Rosales PT, DPT [id number] 08/14/2024 Additional Details: PT Co-Eval/Treatment Information Co-evaluation/co-treatment [...] on the below outcome measures/assessment score(s) and KINGSBURY MACHINE OPERATOR clinicaljudgment, discharge destination recommendation is: IPR Barriers to discharge home: 1:1 assist needed for IADL's including medication management and finances Supporting factors for discharge setting: Impaired swallow function limiting nutritional status andsafety with oral intake, Impaired cognitive skills limiting safety/insight Acute KINGSBURY MACHINE OPERATOR Outcomes Tracking Communicate basic wants and [...] independent carry over. Strong family support. Ongoing KINGSBURY MACHINE OPERATOR s indicated. Subjective information: Alert, present. SO referenced his notes from yesterday and reportedcarry over of exercises yesterday. Patient with zero recall Pain: Nonverbal indicator not present Precautions: Patient Safety Communication Prior to Visit: Nursing Lines/Tubes/Drains (Rehab Status): Telemetry, Tube feed Existing Precautions/Restrictions: fall Respiratory Status: O2 Sat (%): 96 % (08/14 0711) O2 Device: room air (08/14 0947) Acute KINGSBURY MACHINE OPERATOR Goals Plan of Care by Tanja Cason KINGSBURY MACHINE OPERATOR at 08/14/2024 2:42 PM Version 1 of [...] RoM to achieve technique. Outcome: Ongoing Problem: KING[place]Y MACHINE OPERATOR - Cognition Goal: Orientation Log - [...] next session: 08/14 - ongoing exercises, education KINGSBURY MACHINE OPERATOR Outcomes: FOIS 2 Speech Language Pathologist: [...] of session: none altered Needs in reach. KINGSBURY MACHINE OPERATOR Evaluation and Treatment Time Speech Therapy - Individual 96497: 14 Swallowing Dysfunction Treatment 51198: 14 Upon discontinuation of Acute Care Speech [...] on the below outcome measures/assessment score(s) and KINGSBURY MACHINE OPERATOR clinicaljudgment, discharge destination recommendation is: Inpatient Rehab Facility Barriers to discharge home: 1:1 assist needed for IADL's including medication management and finances Supporting factors for discharge setting: Impaired swallow function limiting nutritional status andsafety with oral intake, Impaired cognitive skills limiting safety/insight Acute KINGSBURY MACHINE OPERATOR Outcomes Tracking Communicate basic wants and [...] O2 Device: room air (08/13 710) Acute KINGSBURY MACHINE OPERATOR Goals Plan of Care by Tanja Cason KINGSBURY MACHINE OPERATOR at 08/13/2024 11:10 AM Version 1 [...] 10 reps this session. Outcome: Ongoing Problem: [place]ING[place]Y MACHINE OPERATOR - Cognition Goal: Orientation Log - [...] considerations: Cognition Patient Instruction/Education comments: Role of KINGSBURY MACHINE OPERATOR, presence and normalized frustration with cognitive-communicative impairments. Focused on memory this date and that patient does not recall education so perseverative questions are normal. Reviewed intermittent silent aspiration from MBS last weekand ongoing signs of dysphagia this session, will plan to coordinate timing for repeat instrumentalwith care team Plan for next session: 08/13 -fair KINGSBURY MACHINE OPERATOR Outcomes: FOIS 2 Speech Language Pathologist: [...] of session: none altered Needs in reach. KINGSBURY MACHINE OPERATOR Evaluation and Treatment Time Speech Therapy - Individual 28826: 12 Swallowing Dysfunction Treatment 91440: 13 Upon discontinuation of Acute Care Speech Therapy Services or patient discharge from the hospital this note represents the current Speech Therapy Discharge Summary * OWEN Benavides - 08/12/2024 3:21 PM EDT Placement Plan Expected Discharge Date: 08/14/2024 Referred Level of Care: IPR Barriers: Medical Readiness & Precertification Current Referrals and Status 1. Tyler Garcia-accepted IPR started precertification today. BULMARO Allen Radiologic Technician * Jazzy Aguiar - 08/12/2024 10:46 AM [...] sinkside Mobility Assessment/Intervention: Supine to Sit Mobility Douglas Level: Supine->Sit: moderate assist (50% patient effort) [...] positioning Transfer Assessment/Intervention: Sit to Stand Transfer Douglas Level: Sit->Stand: maximum assist (25% patient effort) [...] maintaining upright posture Stand to Sit Transfer Douglas Level: Stand->Sit: maximum assist (25% patient effort) Physical Assist: Stand->Sit: 2 person assist Assistive Device: Stand->Sit: gait belt, hand held assist Skilled Rationale: Verbal cues, Tactile cues, Hand placement, Positioning, Controlled descent for sitting Skilled Intervention/Details: Stand->Sit: Cues for positioning with recliner and using BUEs to help with appropriate positoining of hips in chair Bed-Chair Transfer Douglas Level: Bed<->Chair: maximum assist (25% patient effort) [...] speech and L hemiplegia. She presented to [facility] and was seen on Telestroke, NIHSS [...] goal TF volume. Pt last assessed by KINGSBURY MACHINE OPERATOR 08/08 with recommendations for NPO. S/p [...] chips. Will also increase free water flushes. KINGSBURY MACHINE OPERATOR to see pt tomorrow. Nutrition Focused Physical Exam: Nutrition Focused Physical Exam Completed?: completed Subcutaneous Fat Loss: Orbital Region (Orbital Fat Pads): WDL Cheek Region (Buccal Fat Pads): WDL Upper Arm Region (Triceps): WDL Thoracic and Lumbar Region (Ribs, Lower Back, Midaxillary Line): WDL Muscle Wasting: Judaism Region (Temporalis Muscle): deferred (lac over eyebrow) [...] kg (172 lb) 06/26/24 78.9 kg (174 lb)-[facility] 05/31/24 79 kg (174 lb 2.6 oz)-[facility] 11/28/23 80.6 kg (177 lb 9.6 oz)-[facility] 09/29/23 84 kg (185 lb)-[facility] meds reviewed: Scheduled: Reviewed, includes [...] Needs: Weight Used: 61 kg (IBW) EEN: 5808-3234 kcal/day (25-30 kcal/kg) EPN: 73-92 g/day (1.2-1.5 g/kg) EFN: 1830 mL/day (30 mL/kg) or per primary team Malnutrition Statement: Does the patient meet criteria for malnutrition: No *Based on [employer] Academy and ASPEN Indicators to Diagnose Malnutrition (AAIM) criteria (2012) Tianna Murray RD, LD, [facility] Pager #[phone] * Katie Ramos, PT - 08/12/2024 10:22 [...] standing. Mobility Assessment/Intervention: Supine to Sit Mobility Douglas Level: Supine->Sit: moderate assist (50% patient effort) Physical Assist: Supine->Sit: 2 person assist Bed Features/Set-up: Supine->Sit: Head of bed elevated Skilled Rationale: Verbal cues, Tactile cues, Hand placement, Technique of activity Skilled Intervention/Details: Supine->Sit: verbal/tactile cues for instruction on transfer technique and mod A x 2 for LE and trunk management. Transfer Assessment/Intervention: Sit to Stand Transfer Douglas Level: Sit->Stand: maximum assist (25% patient effort) Physical Assist: Sit->Stand: 2 person assist Assistive Device: Sit->Stand: gait belt Skilled Rationale: Verbal cues, Tactile cues, Hand placement, Technique of activity Skilled Intervention/Details: Sit->Stand: x2 trials with verbal/tactile cues for instruction on transfer technique, hand placement, and blocking left knee. Bed-Chair Transfer Douglas Level: Bed<->Chair: maximum assist (25% patient effort) Physical Assist: Bed<->Chair: 2 person assist Assistive Device: Bed<->Chair: gait belt Skilled Rationale: Verbal cues, Tactile cues, Hand placement, Technique of activity Skilled Intervention/Details: Bed<->Chair: x1 trial from EOB to chair to the right. Verbal/tactile cues for instruction on transfer technqiue, blocking left knee. Outcome Score(s): CURRENT [facility] Basic Mobility Inpatient Short Form Turning over in bed: 2 - A Lot of Assistance Moving from lying on back to sittin - Total Assistance Moving to and from bed to chair: 1 - Total Assistance Sitting/standing from chair: 1 - Total Assistance Walk in hospital room: 1 - Total Assistance Climbing 3-5 steps with a railin - Total Assistance CURRENT [facility] Mobility Raw Score: 7 CURRENT [facility] Mobility Functional Limitation: 92.36% Impaired in Basic [...] Physical Therapy Discharge Summary. * Radha Gr, HIGH SCHOOL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 COACH-VP BIOLOGY - 08/11/2024 7:15 AM EDT NEUROVASCULAR STROKE SERVICE Daily Progress Note IDENTIFYING INFORMATION Lindsay Acuna MR# [id number] 08/11/2024 HISTORY OF PRESENT ILLNESS Lindsay Acuna is a 78 y.o. female with PMH significant for CAD, HTN, HLD, T2DM, Afib (on Eliquis, although patient reports she has not been taking it) who presents with L hemiplegia, slurred speech. LKW 0915 on 08/02, later found down with slurred speech and L hemiplegia. She presented to [facility] and was seen on Telestroke, NIHSS [...] 2b revascularization. INTERVAL HISTORY 08/05: Transfer to [place]. MBS tomorrow 08/06: Failed MBS. Increased lopressor. [...] today 08/11 -Rate controlled on metoprolol Dysphagia: -KING[place]URY MACHINE OPERATOR following -NPO, DHT + TF -Failed [...] Lindsay Acuna will likely be discharged to [facility] when medically ready Radha Gr APRN-VP BIOLOGY 08/11/2024 10:17 AM VITAL SIGNS Temp: [97.2 [...] for specific therapeutic recommendations, please see the diamond cleaner report of the speech pathologist. Examination performed [...] and neurological examinations as recorded by the ICE CREAM VAN VENDOR repeated and confirmed. I have personally reviewed [...] tooth. Blood cx unremarkable. * Radha Gr, JASIEL-VP BIOLOGY - 08/10/2024 7:14 AM EDT NEUROVASCULAR STROKE SERVICE Daily Progress Note IDENTIFYING INFORMATION Lindsay Acuna MR# [id number] 08/10/2024 HISTORY OF PRESENT ILLNESS Lindsay Acuna is a 78 y.o. female with PMH significant for CAD, HTN, HLD, T2DM, Afib (on Eliquis, although patient reports she has not been taking it) who presents with L hemiplegia, slurred speech. LKW 0915 on 08/02, later found down with slurred speech and L hemiplegia. She presented to [facility] and was seen on Telestroke, NIHSS [...] 2b revascularization. INTERVAL HISTORY 08/05: Transfer to [facility] tomorrow 08/06: Failed MBS. Increased lopressor. Spouse [...] OSH CTA brain/neck: R M1 occlusion CTH 3/22: Acute right basal ganglia hemorrhage with surrounding [...] as above -Rate controlled on metoprolol Dysphagia: -[place]Y MACHINE OPERATOR following -NPO, DHT + TF -Failed [...] Lindsay Acuna will likely be discharged to [facility] when medically ready Radha Gr APRN-VP BIOLOGY 08/10/2024 7:14 AM VITAL SIGNS Temp: [97.4 [...] for specific therapeutic recommendations, please see the diamond cleaner report of the speech pathologist. Examination performed [...] skin and external bumper. - If used tea tree farmer, PEG should be changed every 3-6 months [...] Hepatology, and Nutrition Clinical Fellow PGY-4 Pager: [phone] For follow up questions regarding this patient 7am to 5pm, contact the IBD consults fellow or DAHLIA on QGenda. [facility]--> Internal Medicine--> Gastroenterology, Hepatology, & Nutrition--> IBD Consult Service Fel Day OR IBD Consult Service DAHLIA Day For urgent/stat calls or new consults 5pm to 7am or all day on the weekend, please page the on-callGI fellow on QGenda. [facility]--> Internal Medicine--> Gastroenterology, Hepatology, & Nutrition--> [...] CM for assistance as needed (8:00am-4:30pm) BASH: [phone] Maria: [phone] Johan: [phone] Ross: [phone] For Social Work assistance for the weekend, please contact SW for assistance as needed (8:00am - 4:30pm): BASH: [phone] Maria: [phone] Johan: [phone] Ross: [phone] * Radha Gr APRN-GARRETT - 08/09/2024 8:07 AM EDT NEUROVASCULAR STROKE SERVICE Daily Progress Note IDENTIFYING INFORMATION Lindsay Acuna MR# [id number] 08/09/2024 HISTORY OF PRESENT ILLNESS Lindsay Acuna is a 78 y.o. female with PMH significant for CAD, HTN, HLD, T2DM, Afib (on Eliquis, although patient reports she has not been taking it) who presents with L hemiplegia, slurred speech. LKW 0915 on 3/21, later found down with slurred speech and L hemiplegia. She presented to [facility] and was seen on Telestroke, NIHSS [...] 2b revascularization. INTERVAL HISTORY [place]/05: [place] [facility] [place] Failed MBS. Increased lopressor. Spouse [...] as above -Rate controlled on metoprolol Dysphagia: -[place] MACHINE OPERATOR following -NPO, DHT + TF -Failed [...] Lindsay Acuna will likely be discharged to [facility] when medically ready Radha Gr, JASIEL-VP BIOLOGY 08/09/2024 8:07 AM VITAL SIGNS Temp: [97.3 [...] for specific therapeutic recommendations, please see the diamond cleaner report of the speech pathologist. Examination performed [...] on the below outcome measures/assessment score(s) and KINGSBURY MACHINE OPERATOR clinicaljudgment, discharge destination recommendation is: Inpatient Rehab Facility Acute KING[place]URY MACHINE OPERATOR Outcomes Tracking Communicate basic wants and [...] pressions and introduction to effortful swallow exercise. KING[place]Y MACHINE OPERATOR provided education regarding recommendation of NPO [...] constraints (transport arrived for pt's CT scan). KING[place]Y MACHINE OPERATOR will follow as able. Subjective information: Patient upright in chair, at bedside. Agreeable to KINGSBURY MACHINE OPERATOR session. Pain: General Pain Documentation (Adult, [...] room air Flow (L/min): [3] 3 Acute [place]ING[place]URY MACHINE OPERATOR Goals Plan of Care by RIKI [...] phsyiology, risks of aspiration pneumonia). Educated regarding [place]Y MACHINE OPERATOR role in swallow rehab and future POC Plan for next session: 08/06: cog tx and dysphagia exercises KINGSBURY MACHINE OPERATOR Outcomes: FOIS: 1 Speech Language Pathologist: RIKI Penaloza Time In: 1310 Time Out: 1330 Total Visit Time: 20 minutes Total Treatment Time (skilled, billable minutes): 20 minutes Non-billable assistance during session: NA Assisted by during session: NA PPE used during patient interaction: gloves Patient location/status at end of session: chair Patient alarms at end of session: none altered Needs in reach. KING[place]URY MACHINE OPERATOR Evaluation and Treatment Time Swallowing Dysfunction Treatment 81171: 20 Upon discontinuation of Acute Care Speech [...] feedback Mobility Assessment/Intervention: Supine to Sit Mobility Douglas Level: Supine->Sit: moderate assist (50% patient effort) Physical Assist: Supine->Sit: 2 person assist Bed Features/Set-up: Supine->Sit: Use of bed rail, Head of bed elevated Skilled Rationale: Sequencing, Verbal cues, Hand placement, Positioning Skilled Intervention/Details: Supine->Sit: increased time/cues Transfer Assessment/Intervention: Sit to Stand Transfer Douglas Level: Sit->Stand: moderate assist (50% patient effort) Physical Assist: Sit->Stand: 2 person assist Assistive Device: Sit->Stand: gait belt, hand held assist Skilled Rationale: Positioning, Sequencing, Hand placement, Verbal cues Skilled Intervention/Details: Sit->Stand: Pt educated in sit to stand transfers x 2 attempts, one from EOB and one from chair Bed-Chair Transfer Douglas Level: Bed<->Chair: maximum assist (25% patient effort) [...] Mobility Assessment/Intervention: Stairs Assessment/Intervention: Outcome Score(s): CURRENT [facility] Basic Mobility Inpatient Short Form Turning over in bed: 2 - A Lot of Assistance Moving from lying on back to sittin - A Lot of Assistance Moving to and from bed to chair: 1 - Total Assistance Sitting/standing from chair: 1 - Total Assistance Walk in hospital room: 1 - Total Assistance Climbing 3-5 steps with a railin - Total Assistance CURRENT [facility] Mobility Raw Score: 8 CURRENT [facility] Mobility Functional Limitation: 86.62% Impaired in Basic [...] chair alarm Needs in reach. Time In: 43 Time Out: 1007 Total Visit Time: 24 [...] positioning Mobility Assessment/Intervention: Supine to Sit Mobility Douglas Level: Supine->Sit: moderate assist (50% patient effort) [...] positioning Transfer Assessment/Intervention: Sit to Stand Transfer Douglas Level: Sit->Stand: moderate assist (50% patient effort) Physical Assist: Sit->Stand: 2 person assist Assistive Device: Sit->Stand: gait belt, hand held assist Skilled Rationale: Verbal cues, Tactile cues, Hand placement, Positioning, Technique of activity Skilled Intervention/Details: Sit->Stand: x1 from EOB, x1 from recliner. Cues for technique and assuming an upright posture once standing Stand to Sit Transfer Douglas Level: Stand->Sit: moderate assist (50% patient effort) Physical Assist: Stand->Sit: 2 person assist Assistive Device: Stand->Sit: gait belt, hand held assist Skilled Rationale: Verbal cues, Tactile cues, Hand placement, Positioning, Controlled descent for sitting Skilled Intervention/Details: Stand->Sit: Cues for positioning with recliner and using arms to help with controlled descent into chair Bed-Chair Transfer Douglas Level: Bed<->Chair: maximum assist (25% patient effort) [...] appropriately position with chair. Outcome Score(s): CURRENT [facility] Daily Activity Inpatient Short Form Putting on/Taking Off Lower Body Clothin - Total Assistance Bathin - A Lot of Assistance Toiletin - Total Assistance Putting on/Taking Off Upper Body Clothin - A Lot of Assistance Groomin - A Lot of Assistance Eatin - Total Assistance CURRENT [facility] Activity Raw Score: 9 CURRENT [facility] Activity Functional Limitation/Modifier: 79.59% Currently Impaired in [...] RN aware Needs in reach. Time In: 43 Time Out: 1007 Total Visit Time: 24 [...] Progress Note IDENTIFYING INFORMATION Lindsay Acuna MR# [id number] 08/08/2024 HISTORY OF PRESENT ILLNESS Lindsay Acuna is a 78 y.o. female with PMH significant for CAD, HTN, HLD, T2DM, Afib (on Eliquis, although patient reports she has not been taking it) who presents with L hemiplegia, slurred speech. LKW 0915 on 08/02, later found down with slurred speech and L hemiplegia. She presented to [facility] and was seen on Telestroke, NIHSS [...] 2b revascularization. INTERVAL HISTORY 08/05: [place] [facility] tomorrow 08/06: Failed MBS. Increased lopressor. [...] as above -Rate controlled on metoprolol Dysphagia: -[place] MACHINE OPERATOR following -NPO, DHT + TF -Failed [...] Lindsay Acuna will likely be discharged to [facility] when medically ready Bella Cardenas, HIGH SCHOOL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 COACH-VP BIOLOGY 08/08/2024 2:53 PM VITAL SIGNS Temp: [97.4 [...] for specific therapeutic recommendations, please see the diamond cleaner report of the speech pathologist. Examination performed [...] availability Current Referrals and Status 1. [facility]- Reserved CCM notified LUCIO bedolla confirming after call with Patient's daughter that [facility] is facility of choice. Facility reserved. AVS/DAVE [...] accept or not. Discussed with Gisela that [facility] responded that they are out of network with patient's insurance, therefore only option would be private pay. Gisela stated that patient and patient's spouse are agreeable to [facility] as facility of choice, and Gisela is agreeable to [facility] as well. Updated LUCIO student. Simin Resendez RN, BSN Clinical Cyber Engineer [facility] * Chela Hannon - 08/07/2024 2:08 PM EDT Placement Plan RESTAURANT CASHIER met with Patient and spouse at bedside to discuss facility choice. Spouse mentioned that [facility] was first choice, though RESTAURANT CASHIER provided update that [facility] could not accept after reviewing. RESTAURANT CASHIER reviewed other IPR options with Spouse, who reports that [facility] would be facility of choice. Spouse discussed with daughter Gisela via phone, who is in agreement but requestsa return call. RESTAURANT CASHIER notified CCM. Chela Snyder, Social Work Student Available by Secure Chat Cosigned by OWEN Keller at 08/07/2024 2:11 PM EDT * Bella Cardenas, HIGH SCHOOL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 COACH-VP BIOLOGY - 08/07/2024 6:54 AM EDT NEUROVASCULAR STROKE SERVICE Daily Progress Note IDENTIFYING INFORMATION Lindsay Acuna MR# [id number] 08/07/2024 HISTORY OF PRESENT ILLNESS Lindsay Acuna is a 78 y.o. female with PMH significant for CAD, HTN, HLD, T2DM, Afib (on Eliquis, although patient reports she has not been taking it) who presents with L hemiplegia, slurred speech. LKW 0915 on 08/02, later found down with slurred speech and L hemiplegia. She presented to [facility] and was seen on Telestroke, NIHSS [...] 2b revascularization. INTERVAL HISTORY [place]05: [place] [facility] [place] Failed MBS. Increased lopressor. Spouse [...] as above -Rate controlled on metoprolol Dysphagia: -[place] MACHINE OPERATOR following -NPO, DHT + TF -Failed [...] Lindsay Acuna will likely be discharged to [facility] when medically ready Bella Cardenas APRN-VP BIOLOGY 08/07/2024 3:06 PM VITAL SIGNS Temp: [97.5 [...] for specific therapeutic recommendations, please see the diamond cleaner report of the speech pathologist. Examination performed [...] authorization, transportation Current Referrals and Status 1. [facility]: Available 2. [facility]: Available 3. [facility]: Available (pending PEG or diet and their MD requested aspirin started before discharge) 4. [facility]: Available 5. [facility]: Unavailable, out of network 6. [facility] Inpatient [facility]hab: Unavailable, Incorrect Level of Care 7. [facility] IPR: sent Met with patient and patient's spouse, Ike, at bedside to provide choice list. Ike called patient's daughter, Gisela Acuna, to discuss as well. Gisela requested information on private pay at [facility], messaged [facility] liaison and then provided information to Gisela. Gisela requested CM sendreferral to [facility] IPR. Plan for family to review choice list tonight, CM/SW team will update patient and family regarding [facility] IPR response tomorrow morning. This CM's contact information provided to Ike Acuna and Gisela Acuna for any further questions. Simin Resendez RN, BSN Clinical Cyber Engineer [facility] * Florinda Velasquez, PT - 08/06/2024 2:30 [...] minutes Mobility Assessment/Intervention: Supine to Sit Mobility Douglas Level: Supine->Sit: moderate assist (50% patient effort) Bed Features/Set-up: Supine->Sit: Head of bed elevated, Use of bed rail Skilled Rationale: Positioning, Sequencing Skilled Intervention/Details: Supine->Sit: step by step cues for sequencingg Transfer Assessment/Intervention: Sit to Stand Transfer Douglas Level: Sit->Stand: moderate assist (50% patient effort) [...] left UE during transitional movements Bed-Chair Transfer Douglas Level: Bed<->Chair: moderate assist (50% patient effort) Physical Assist: Bed<->Chair: 2 person assist Assistive Device: Bed<->Chair: gait belt, hand held assist Skilled Rationale: Positioning, Hand placement, Verbal cues, Sequencing Skilled Intervention/Details: Bed<->Chair: Pt educated in bed to BSC commode transfer x 2-3 steps with cues for LE sequencing, left LE weakness requiring intermittent blocking Gait/Functional Mobility Assessment/Intervention: Gait Assessment Douglas Level: Gait: (mod/max) Physical Assist: Gait: 2 [...] prevent buckling. Stairs Assessment/Intervention: Outcome Score(s): CURRENT [facility] Basic Mobility Inpatient Short Form Turning over [...] with a railin - Total Assistance CURRENT [facility] Mobility Raw Score: 9 CURRENT [facility] Mobility Functional Limitation: 81.38% Impaired in Basic [...] Physical Therapy Discharge Summary. * Nimesh Balderrama, [facility] - 08/06/2024 1:42 PM EDT Department of Pharmacy Admission Medication Reconciliation Note Patient: Lindsay Acuna Room/Bed: 1043/A I have reviewed the patient's home medication list with the following sources Dispense Report. The home medication list status is: complete. All changes to the home medication list have been updated in IS. Updated OFFICE EMPLOYEE Med List: Prior to Admission Medications Prescriptions [...] with any further questions. Name: Nimesh Balderrama Mohsen Phone #: [phone] Date/Time: 08/06/2024 1:42 PM Time Spent: 10 [...] noted Mobility Assessment/Intervention: Supine to Sit Mobility Douglas Level: Supine->Sit: moderate assist (50% patient effort) [...] completion. Transfer Assessment/Intervention: Sit to Stand Transfer Douglas Level: Sit->Stand: (x 1 trial from EOB [...] and kyphotic posture. Stand to Sit Transfer Douglas Level: Stand->Sit: moderate assist (50% patient effort) Assistive Device: Stand->Sit: gait belt (Arm and arm assist.) Skilled Rationale: Cues for increased safety, Initiation and execution of task, Technique of activity, Controlled descent for sitting, Ischial assist, Arm in arm, Tactile cues, Verbal cues, Hand placement, Sequencing, Positioning Bed-Chair Transfer Douglas Level: Bed<->Chair: moderate assist (50% patient effort) [...] with left LE). Functional Mobility: Functional Mobility Douglas Level: Functional Mobility/Gait: (Moderate-max assistance) Physical Assist: [...] overall decreased insight/awareness intodeficits. Outcome Score(s): CURRENT [facility] Daily Activity Inpatient Short Form Putting on/Taking Off Lower Body Clothin - Total Assistance Bathin - A Lot of Assistance Toiletin - Total Assistance Putting on/Taking Off Upper Body Clothin - A Lot of Assistance Groomin - A Lot of Assistance Eatin - Total Assistance ([place].) CURRENT [facility] Activity Raw Score: 9 CURRENT -[facility] Activity Functional Limitation/Modifier: 79.59% Currently Impaired in [...] Occupational Therapy Discharge Summary. * Taran Traore, HIGH SCHOOL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 COACH-VP BIOLOGY - 08/06/2024 7:49 AM EDT NEUROVASCULAR STROKE SERVICE Daily Progress Note IDENTIFYING INFORMATION Lindsay Acuna MR# [id number] 08/06/2024 HISTORY OF PRESENT ILLNESS Lindsay Acuna is a 78 y.o. female with PMH significant for CAD, HTN, HLD, T2DM, Afib (on Eliquis, although patient reports she has not been taking it) who presents with L hemiplegia, slurred speech. LKW 0915 on 08/02, later found down with slurred speech and L hemiplegia. She presented to [facility] and was seen on Telestroke, NIHSS [...] 2b revascularization. INTERVAL HISTORY [place]05: [place] [facility] [place] Failed MBS. Increased lopressor. Spouse [...] as above -Rate controlled on metoprolol Dysphagia: -[place] MACHINE OPERATOR following -NPO, DHT + TF -Failed [...] Lindsay Acuna will likely be discharged to [facility] when medically ready Taran Traore APRN-VP BIOLOGY 08/06/2024 1:43 PM VITAL SIGNS Temp: [96.5 [...] for specific therapeutic recommendations, please see the diamond cleaner report of the speech pathologist. Examination performed [...] Progress Note IDENTIFYING INFORMATION Lindsay Acuna MR# [id number] 08/05/2024 HISTORY OF PRESENT ILLNESS Lindsay Acuna is a 78 y.o. female with PMH significant for CAD, HTN, HLD, T2DM, Afib (on Eliquis, although patient reports she has not been taking it) who presents with L hemiplegia, slurred speech. LKW 0915 on 08/02, later found down with slurred speech and L hemiplegia. She presented to [facility] and was seen on Telestroke, NIHSS [...] 2b revascularization. INTERVAL HISTORY 08/05: Transfer to [facility] tomorrow PHYSICAL EXAM Gen: awake, alert, [...] as above -Rate controlled on metoprolol Dysphagia: -[place] MACHINE OPERATOR following -NPO, DHT + TF -MBS tomorrow HLD, POA: -Atorvastatin 40 mg daily CAD, POA: -Hold ASA for 7 days due to ICH T2DM, POA: -SSI regular + accuchecks CKD Stage 3A, POA: Baseline Cr 1.3 -Avoid nephrotoxins, monitor Hypothyroidism, POA: -Continue home levothyroxine 75 mcg daily Disposition: Lindsay Acuna will likely be discharged to [facility] when medically ready Taran Traore, JASIEL-VP BIOLOGY 08/05/2024 2:19 PM VITAL SIGNS Temp: [97.8 [...] on the below outcome measures/assessment score(s), and K[place] MACHINE OPERATOR clinical judgment, discharge destination recommendation is: [...] Impaired cognitive skills limiting saf ety/insight Acute [place]Y MACHINE OPERATOR Outcomes Tracking Communicate basic wants and [...] oropharyngeal swallow function to most appropriately guide KING[place]URY MACHINE OPERATOR plan of care. Of note, patient [...] Currentdeficits impact her safety and independence. Ongoing KING[place]URY MACHINE OPERATOR services are warranted. Subjective information: Awake, [...] O2 Device: room air (08/05 0830) Acute KINGSBURY MACHINE OPERATOR Goals Plan of Care by Queta Gardner, KINGSBURY MACHINE OPERATOR at 08/05/2024 11:49 AM Version 1 [...] oropharyngeal swallow function to most appropriately guide K[place]Y MACHINE OPERATOR plan of care Outcome: Ongoing Problem: [place]Y MACHINE OPERATOR - Cognition Goal: Orientation Log - [...] better assess deficits and most appropriately guide K[place]Y MACHINE OPERATOR plan of care Outcome: Met Tx: [...] Plan for next session: 08/05: [place] [facility] [place] MACHINE OPERATOR Outcomes: KING[place]URY MACHINE OPERATOR Outcomes / Standardized Measures Score The [...] wrist restraints, RN aware Needs in reach. KING[place]URY MACHINE OPERATOR Evaluation and Treatment Time Speech Therapy - Individual 98031: 8 Swallowing Dysfunction Treatment 51508: 9 Upon discontinuation of Acute Care Speech Therapy Services or patient discharge from the hospital this note represents the current Speech Therapy Discharge Summary * Chela Hannon - 08/05/2024 10:37 AM EDT Placement Plan Expected Discharge Date: TBD Referred Level of Care: IPR Barriers: medical stability, bed availability Current Referrals and Status 1. [facility]- sent; denied (Patient is OON) 2. [facility]- sent 3. [facility]- sent 4. [facility]- sent 5. [facility]- sent 6. [facility] RESTAURANT CASHIER met with Patient and Spouse at bedside to discuss discharge planning. Patient and spouse were agreeable to SW visit. RESTAURANT CASHIER discussed therapy recommendations with Spouse for Patient to go to [facility] at discharge. Spouse is agreeable to a referral being sent to [facility]. Referral sent. Spouse requested to speak to SW about assessing Patient for dementia. RESTAURANT CASHIER and bedside RN encouragedSpouse to discuss with Patient's outpatient provider. Chela Snyder, Social Work Student Available by Secure Chat Cosigned by OWEN Keller at 08/05/2024 11:22 AM EDT * Savana Leung RD - 08/05/2024 10:10 AM EDT NUTRITION ASSESSMENT Nutrition Recommendations and Plan of Care: 1. Diet: NPO. Advancement per team/KING[place]URY MACHINE OPERATOR recommendation 2. Ordered TF: Glucerna 1.5 [...] time. Per team, pt failed bedside swallow. KING[place]URY MACHINE OPERATOR consulted for swallow eval. Past History [...] kg (172 lb) 06/26/24 78.9 kg (174 lb)-[facility] 05/31/24 79 kg (174 lb 2.6 oz)-[facility] 11/28/23 80.6 kg (177 lb 9.6 oz)-[facility] 09/29/23 84 kg (185 lb)-[facility] Pt without significant weight change OFFICE EMPLOYEE. Tmax: 97.8*F BP: (!) 173/94 Pulse (Heart [...] proximal second portion of the duodenum. BM: OFFICE EMPLOYEE Urine: 725mL Skin: Raghu Score: 13 Active Wounds: Wound Sheath Site 08/02/24 1500 Right Radial (3) Wound Abrasion 08/02/24 2109 Left;Upper Face (3) Edema- None Estimated Nutrition Needs: Based on IBW (61.4kg) Estimated Kcals Needs: 2009-0941 kcals (25-30kcals/kg) Estimated Pro Needs: 74-92g Pro (1.2-1.5g/kg) Estimated Fluid Needs: Per MD Nutrition Focused Physical Exam Completed?: completed Subcutaneous Fat Loss: Orbital Region (Orbital Fat Pads): WDL Cheek Region (Buccal Fat Pads): WDL Upper Arm Region (Triceps): WDL Thoracic and Lumbar Region (Ribs, Lower Back, Midaxillary Line): WDL Muscle Wasting: Judaism Region (Temporalis Muscle): deferred (lac over eyebrow) [...] (2012) ELVIRA Ho, RD, LD, CNSC Pager: [phone] * Rashad Rg MD - 08/05/2024 9:42 AM EDT 78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 * Shanna Russ APRN-VP BIOLOGY - 08/05/2024 7:20 AM EDT NEUROCRITICAL CARE [...] Visual richards intact to confrontation. PERRL. 3mm housekeeper caregiver III, IV and : EOMI. No nystagmus. [...] aggressive pulm edema, OOB as toleratd - [id number], encourage pulmonary toileting Cards: Essential HTN HLD [...] TUBE FEEDING with meds (per DHT) - Foreman Swallow Screening Result: failed=NPO Bowel regimen: - Last Bowel Movement: (prior to admission) - Senna 17.2 mg Q12H, miralax BID, suppository PRN Stress ulcer prophylaxis: - none Dysphagia - DHT placed - K[place] MACHINE OPERATOR following; NPO continue following, on TF [...] not indicated DVT: subcutaneous heparin [x] Lines [place]: n/a Gallegos: remove Rectal tube: n/a Enteral [...] the assigned neurocritical care provider (resident, fellow, ICE CREAM VAN VENDOR, orPA) or page/call the corresponding number below NCC1 (Beds 1543-0802): Pernell # [phone], pager #[phone] NCC2 (Beds 0818-0031, 12 [address], and overflow): Tracy #: [phone], pager #[phone] * Florinda Velasquez, PT - 08/04/2024 1:36 [...] noted Mobility Assessment: Supine to Sit Mobility Douglas Level: Supine->Sit: moderate assist (50% patient effort) [...] EOB Transfer Assessment: Sit to Stand Transfer Douglas Level: Sit->Stand: moderate assist (50% patient effort) Physical Assist: Sit->Stand: 2 person assist Assistive Device: Sit->Stand: gait belt, hand held assist Skilled Rationale: Positioning, Sequencing, Hand placement, Verbal cues Skilled Intervention/Details: Sit->Stand: x 1 from EOB Bed-Chair Transfer Douglas Level: Bed<->Chair: moderate assist (50% patient effort) [...] with a railin - Total Assistance CURRENT [facility] Mobility Raw Score: 10 CURRENT [facility] Mobility Functional Limitation: 76.75% Impaired in Basic [...] Clinical Decision Making Complexity: Moderate Time In: 09 Time Out: 0937 Total Visit Time: 18 [...] Edema: Mobility Assessment: Supine to Sit Mobility Douglas Level: Supine->Sit: moderate assist (50% patient effort) Physical Assist: Supine->Sit: 2 person assist Bed Features/Set-up: Supine->Sit: Head of bed elevated Skilled Rationale: Positioning, Hand placement, Verbal cues, Technique of activity Transfer Assessment: Sit to Stand Transfer Douglas Level: Sit->Stand: moderate assist (50% patient effort) Physical Assist: Sit->Stand: 2 person assist Assistive Device: Sit->Stand: gait belt, hand held assist Skilled Rationale: Positioning, Hand placement, Verbal cues, Technique of activity Stand to Sit Transfer Douglas Level: Stand->Sit: moderate assist (50% patient effort) Physical Assist: Stand->Sit: 2 person assist Assistive Device: Stand->Sit: hand held assist Skilled Rationale: Positioning, Hand placement, Verbal cues, Arm in arm, Controlled descent for sitting Bed-Chair Transfer Douglas Level: Bed<->Chair: moderate assist (50% patient effort) Physical Assist: Bed<->Chair: 2 person assist Assistive Device: Bed<->Chair: gait belt, hand held assist Skilled Rationale: Arm in arm, Patellar block, Technique of activity Skilled Intervention/Details: Bed<->Chair: LLE weakness/blocking of patella with transfer, pivot to right Functional Mobility: Outcome Score(s): CURRENT [facility] Daily Activity Inpatient Short Form Putting on/Taking Off Lower Body Clothin - A Lot of Assistance Bathin - A Lot of Assistance Toiletin - Total Assistance Putting on/Taking Off Upper Body Clothin - A Lot of Assistance Groomin - A Little Assistance Eatin - Total Assistance CURRENT [facility] Activity Raw Score: 11 CURRENT [facility] Activity Functional Limitation/Modifier: 70.42% Currently Impaired in [...] assessment and plan as documented by the ICE CREAM VAN VENDOR with my changes/additions added. Patient is a [...] ICH x 7 days - Statin - PT/OT/KINGSBURY MACHINE OPERATOR evaluation Pulmonary: No acute issues, appears [...] and other supportive care as per the ICE CREAM VAN VENDOR note from the same day This patient [...] [facility] and other care providers. Management of the above was performed. My time managing this critically ill patient included review of interval history, laboratories, radiology and cons ultation reports; performing a physical examination; discussing the patient with the multi-disciplinary team and managing life sustaining therapies to prevent imminent clinical deterioration. Richard Mejia MD Neurocritical Care Attending * Balbir Mccoy, HIGH SCHOOL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 COACH-VP BIOLOGY - 08/04/2024 7:44 AM EDT NEUROCRITICAL CARE [...] Visual richards intact to confrontation. PERRL. 3mm housekeeper caregiver III, IV and : EOMI. No nystagmus. [...] SpO2 >92%; wean FiO2 as tolerated - [id number], encourage pulmonary toileting Cards: Essential HTN HLD [...] TUBE FEEDING with meds (per DHT) - Foreman Swallow Screening Result: failed=NPO Bowel regimen: - Last Bowel Movement: (prior to admission) - Senna 17.2 mg Q12H, miralax at bedtime Stress ulcer prophylaxis: - none Dysphagia - DHT placed - KINGSBURY MACHINE OPERATOR following - Tube feed: Vital AF [...] not indicated DVT: subcutaneous heparin [x] Lines [place]: n/a Gallegos: inserted 08/02, (indication: strict I&O [...] the assigned neurocritical care provider (resident, fellow, ICE CREAM VAN VENDOR, orPA) or page/call the corresponding number below NCC1 (Beds 1418-0699): Pernell # [phone], pager #[phone] NCC2 (Beds 6352-6708, 12 Nando, and overflow): Tracy #: [phone], pager #[phone] * Rafael Garcia MD - 08/03/2024 2:16 PM EDT NEUROVASCULAR Consult Daily Progress Note IDENTIFYING INFORMATION Lindsay Acuna MR# [id number] 08/03/2024 HISTORY OF PRESENT ILLNESS Lindsay Acuna is a 78 y.o. female with PMH significant for CAD, HTN, HLD, T2DM, Afib (on Eliquis, although patient reports she has not been taking it) who presents with L hemiplegia, slurred speech. She was last seen normal by her at 0915, later found down with slurred speech and L hemiplegia. She presented to [facility] and was seen on Telestroke, NIHSS [...] speech and L hemiplegia. She presented to [facility] and was seen on Telestroke, NIHSS [...] workup. Delbert Kasper MD * Nohelia Oconnell, KINGSBURY MACHINE OPERATOR - 08/03/2024 12:09 PM EDT Acute Care KINGSBURY MACHINE OPERATOR Speech/Language/Cognitive Evaluation Best mode of Communication: spoken language (regular speech) Discharge Recommendations: Based on the below outcome measures/assessment score(s) and KINGSBURY MACHINE OPERATOR clinicaljudgment, discharge destination recommendation is: (Skilled speech therapy services at next level of care) Barriers to discharge home: Cognitive impairments that impact safety and independence Supporting factors for discharge setting: Impaired swallow function limiting nutritional status andsafety with oral intake Acute KINGSBURY MACHINE OPERATOR Outcomes Tracking Communicate basic wants and [...] speech and L hemiplegia. She presented to [facility] and was seen on Telestroke,NIHSS 12. [...] 0 Asthenia (A): 0 Strain (S): 0 KINGSBURY MACHINE OPERATOR Outcomes / Standardized Measures Score The [...] unable to respond. Total Score: 12 Acute KINGSBURY MACHINE OPERATOR Goals Plan of Care by RIKI Hayes at 08/03/2024 11:25 AM Version 1 of 1 Problem: Dysphagia Goal: Ongoing Assessment - Patient will participate in ongoing assessment by accepting various PO consistency trials with appropriate participation/oral acceptance and no significant respiratory complications to determine readiness for diet advancement Outcome: Ongoing Problem: KINGSBURY MACHINE OPERATOR - Cognition Goal: Orientation Log - [...] better assess deficits and most appropriately guide KINGSBURY MACHINE OPERATOR plan of care Outcome: Ongoing Speech [...] of session: bed alarm Needs in reach. KINGSBURY MACHINE OPERATOR Evaluation and Treatment Time Speech Eval - Sound Production W/Lang Comp and Exp 83004: 11 Swallowing Eval 78824: 10 Upon discontinuation of Acute Care Speech [...] on the below outcome measures/assessment score(s) and KINGSBURY MACHINE OPERATOR clinicaljudgment, discharge destination recommendation is: Deferred to PT/OT recomendations related to mobility Current therapy frequency recommendation in acute care: Swallow Therapy Frequency: 5 times a week Acute KINGSBURY MACHINE OPERATOR Outcomes Tracking Communicate basic wants and [...] speech and L hemiplegia. She presented to [facility] and was seen on Telestroke,NIHSS 12. 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 Prior KINGSBURY MACHINE OPERATOR history: No prior speech history per [...] and Liquids Trialed Modality Amount Ice Teaspoon, KINGSBURY MACHINE OPERATOR-fed 3x Thin Teaspoon 3x Oral Phase [...] Patient presents with presumed pharyngeal phase impairments. Foreman Swallow Screen: (administered by: RN) Tabitha Swallow Screening Screening Exclusion Criteria: none, continue with Foreman Swallow Screening Cognitive Screen: Orientation: able to [...] Ok for ice chips with RN supervision. KINGSBURY MACHINE OPERATOR will continue to follow for ongoing dysphagia management. Patient Education/Instruction Learners: Patient Education provided: Dysphagia recommendation risk: benefit analysis, Role of this discipline Teaching method: Verbal Education/Instruction Learner response: Needs review Learning preferences: Auditory Learning considerations: Cognition Plan for next session: 08/03: Good Prognosis, ongoing dysphagia management to determine readiness for diet advancement vs instrumental. Acute KINGSBURY MACHINE OPERATOR Goals Plan of Care by RIKI Hayes at 08/03/2024 11:25 AM Version 1 of 1 Problem: Dysphagia Goal: Ongoing Assessment - Patient will participate in ongoing assessment by accepting various PO consistency trials with appropriate participation/oral acceptance and no significant respiratory complications to determine readiness for diet advancement Outcome: Ongoing Problem: KINGSBURY MACHINE OPERATOR - Cognition Goal: Orientation Log - [...] better assess deficits and most appropriately guide KINGSBURY MACHINE OPERATOR plan of care Outcome: Ongoing Speech Language Pathologist: RIKI Hayes, BCS-S Board Certified Specialist in Swallowing and Swallowing Disorders Available via KIWATCH Chat Time In: 1130 Time Out: 1151 Total Visit Time: 21 minutes Total Treatment Time (skilled, billable minutes): 21 minutes Non-billable assistance during session: none Assisted by during session: Patient's PPE used during patient interaction: gloves Patient location/status at end of session: bed with head of bed elevated Patient alarms at end of session: bed alarm Needs in reach. KINGSBURY MACHINE OPERATOR Evaluation and Treatment Time Speech Eval - Sound Production W/Lang Comp and Exp 07049: 11 Swallowing Eval 34172: 10 Upon discontinuation of Acute Care Speech Therapy Services or patient discharge from the hospital this note represents the current Speech Therapy Discharge Summary * Richard Mejia MD - 08/03/2024 10:30 AM EDT I have independently seen and examined the patient on 08/03/24. I agree with the history, examination, assessment and plan as documented by the ICE CREAM VAN VENDOR with my changes/additions added. Patient is a [...] the setting of ICH - Statin - PT/OT/KING[place]URY MACHINE OPERATOR evaluation Pulmonary: No acute issues, appears [...] and other supportive care as per the ICE CREAM VAN VENDOR note from the same day This patient [...] services [facility] the [facility] today [facility] and other care providers. Management [...] with assistance from spouse Care Management Plan RESTAURANT CASHIER met with Patient and Spouse at bedside to complete Initial Assessment. They were agreeable to SW visit. Patient was lethargic though able to answer some short questions. Patient consented to Spouse assisting with assessment. Spouse/Patient report that Patient has never completed a HCPOA. They expressed interest, and RESTAURANT CASHIER will follow to complete document when Patient is more alert and oriented. Spouse reports himself and Patient live in a ranch-style home with strong supports from their community, including 2 neighbors that have assisted at this time. He noted that himself and Patient recently returned from a visit to [facility] for their 50 anniversary. Spouse reports that their 2 children will be visiting soon. RESTAURANT CASHIER explained SW role and offered resources. Spouse [...] Name and Contact information: Ike Acuna P: [phone] Adult Child(jj), List All Adult Children: Yes Name and Contact information: Donnell Acuna P: [phone]; Nathen Acuna P: [phone] Would you like to add additional adult [...] for Advance Care Planning? : Patient Agreeable (RESTAURANT CASHIER to follow for HCPOA completion when Patient is more alert and oriented) Medication Management Does the patient have prescription insurance coverage? : Yes Is the patient on Anticoagulation? : Yes (Per chart review, Patient is on anticoagulation but has not been taking it (does not recall the last time she took a dose)) Provider or Clinic that manages Anticoagulation?: (unspecified at this time) [facility] [address] [place] [id number] [phone] [address] Living Environment and Support System Is the patient from a facility or chcf?: No Living Environment: House ("1 bedroom ranch") Patient Caregiving Responsibilities: Self Patient-identified caregiver/support network: Family, Friends, Neighbors, Yazdanism Who does the patient identify as a [...] themselves at home? : Unable to assess Hematologist Does the patient or merchandiser retail representative express financial concerns? : No Chela Snyder Social Work Student Available by Secure Chat Cosigned by OWEN Keller at 08/03/2024 11:20 AM EDT * Balbir Mccoy, HIGH SCHOOL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 COACH-VP BIOLOGY - 08/03/2024 7:40 AM EDT NEUROCRITICAL CARE [...] Visual richards intact to confrontation. PERRL. 3mm housekeeper caregiver III, IV and : EOMI. No nystagmus. 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 Hypocalcemia - Continue to monitor and replete. Any conditions listed below are present on admission unless otherwise specified. . Cosigned by Prema Ramos MD at 08/03/2024 6:37 PM EDT * Andreas Ga [facility] - 08/02/2024 10:57 PM EDT Department of Pharmacy Renal Documentation Note Patient: Lindsay Acuna Room/Bed: [facility]/A Assessment and Plan: The patient's most recent [...] any questions, Name: Andreas Ga RPH Phone: [phone] Date/Time: 08/02/2024 10:57 PM * Richard Mejia MD - 08/02/2024 6:01 PM EDT I have independently seen and examined the patient on 08/02/24. I agree with the history, examination, assessment and plan as documented by the ICE CREAM VAN VENDOR with my changes/additions added. Patient is a [...] to determine stroke burden - Statin - PT/OT/KING[place]URY MACHINE OPERATOR evaluation Pulmonary: No acute issues, appears [...] stage 3a - Maintain euvolemia GI/Nutrition: - KINGSBURY MACHINE OPERATOR evaluation - Bowel regimen to prevent [...] and other supportive care as per the ICE CREAM VAN VENDOR note from the same day This patient [...] MD Neurocritical Care Attending [facility] Consult note* Niru Koch MD [...] today. Consent obtained by at bedside. - KINGSBURY MACHINE OPERATOR eval: none - RD eval: none [...] dependence ASSESSMENT/RECOMMENDATIONS: - primary team feels that tea tree farmer enteric nutrition is warranted in s/o CVA. Patient is appropriate for endoscopic PEG placement. Consent obtained from at bedside. - we will tentatively plan for EGD for PEG placement 08/09 as add on case. See pre procedure recommendations below. For PEG: - Ancef ordered (1 gm if patient is <80 kg; 2 gm if patient is >80 kg) as "solution specialist to the procedure"). - Please make NPO [...] Hepatology, and Nutrition Clinical Fellow PGY-4 Pager: [phone] For urgent/stat calls 5pm to 7am or all day on the weekend, please page the on- call GI fellow on WebExchange. IM Consult Serv GHN --> [facility] STAT/NEW GI consults For follow up questions regarding this patient, contact the IBD consults fellow or DAHLIA on WebUCAN. IM Consult Serv GHN --> [facility] [...] and medical decisions as outlined. Need for tea tree farmer non-oral enteric nutrition per primary team. We will facilitate this with planned PEG tube placement. Before placement, non-GI management of TF should be established to avoid delays. David Woods M.D. 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 Prema Ramos M.D. Sack Maker Department of Neurosurgery [facility] * Taran Traore, JASIEL-VP BIOLOGY - 08/02/2024 2:44 PM EDT Neurovascular Evaluation Note Evaluation Date: 08/02/2024 Unit: UPERI/POOL Consultation was requested by Dr. Prema Rmaos MD Patient status: Outpatient Length of stay: [...] speech and L hemiplegia. She presented to [facility] and was seen on Telestroke, NIHSS [...] Scales Flowsheet Row Most Recent Value Modified [place] Scale Score Premorbid (MRSS) 0 filed on [...] solution Intravenous Continuous PRN Bebo Barboza APRN- SUPERINTENDENT SYSTEM OPERATION New Bag at 08/02/24 1507 Scheduled Meds: [...] protrudes midline Motor: L hemiplegia Reflexes: Coordination: Dkvzbv-bt-myvs intact on the R, unable to test on the L Sensation: Diminished on the L with tactile extinction on L Gait: Deferred Laboratory Results Diagnostics/Procedures: Labs-CBC Labs-Chem 7([facility]) Labs-Coags Additional Labs No results found [...] ED. Continuous telemetry -PT, OT, Speech and certified social workers in health care consults Other problems: Complexity. Any conditions listed [...] speech and L hemiplegia. She presented to [facility] and was seen on Telestroke, NIHSS [...] Delbert Kasper MD documented [facility] Procedure note* Tanja Hunter, RIKI - 08/06/2024 [...] the below outcome measures/assessment score(s), MBS, and KINGSBURY MACHINE OPERATOR clinical judgment, discharge destination recommendation is: IP Rehab Facility. Patient demonstrates good candidacy for discharge to: IRF. Additional supporting factors include: Impaired swallow functionlimiting nutritional status and safety with oral intake. Acute KINGSBURY MACHINE OPERATOR Outcomes Tracking Communicate basic wants and [...] speech and L hemiplegia. She presented to [facility] and was seen on Telestroke, NIHSS [...] Thin Barium: teaspoon x2, straw x2 Varibar [place] Barium: straw x1 Varibar Thin Honey Barium: [...] recommend NPO and nonoral meds. Ongoing skilled KINGSBURY MACHINE OPERATOR services indicated to address deficits and [...] Therapeutic Interventions Met: yes, treatment indicated Acute KINGSBURY MACHINE OPERATOR Goals Plan of Care by RIKI Gonzales at 08/06/2024 9:33 AM Version 1 of 1 Problem: Dysphagia Goal: MBS - Patient will participate in Modified Barium Swallow (MBS) Study to objectively assess oropharyngeal swallow function to most appropriately guide KINGSBURY MACHINE OPERATOR plan of care Outcome: Met Goal: [...] Treatment Time (skilled, billable minutes): 20 minutes KINGSBURY MACHINE OPERATOR Evaluation and Treatment Time MBS/Motion Fluoroscopic Swallowing Eval 84404: 20 Speech Language Pathologist: RIKI Gonzales Time [...] end of session: none altered (RN present) KINGSBURY MACHINE OPERATOR Evaluation and Treatment Time MBS/Motion Fluoroscopic Swallowing Eval 10354: 20 Upon discontinuation of Acute Care Speech Therapy Services or patient discharge from the hospital this note represents the current Speech Therapy Discharge Summary documented in this [facility] Hospital Discharge instructions* Discharge Instructions* Jhoana Casarez APRN-VP BIOLOGY - 08/06/2024 8:38 AM EDT Please take [...] you at all times. Stroke Education: visit [email or web address] What are the most common symptoms of [...] all ordered medications [x] Avoid non-prescription or xlsg-uxa-ofwplej medication not cleared by your physician [x] [...] may call the neurovascular doctors office at [phone], if you have questions Mon-Fri between 8:30 am and 4:30 pm. - For off hours or the weekend you may call the office or the hospital log handling equipment operator at and ask for the stroke resident solution specialist to be paged. - If you have any other questions or needs, please call Aniyah DOSS, RN, Stroke Nurse Navigator at [phone] Mon-Fri between 7:00am and 3:00pm. - Additional assistance may be found by reaching out to our Case Management Office at [phone]. *In the event of an Emergency: If you have a physical or psychiatric emergency call [phone] or go to your local emergency department. You should also call your outpatient provider's emergency number. Other reference numbers: [facility] Intake Office at [phone]; [facility] at [phone]; or Suicide Prevention Hotline at 522-272-5081. *Helpful phone numbers: Free Crisis Hotline: 4-961-212-TALK ( ) Suicide Hotline: 320.853.6781 Seniors Suicide Hotline: 625.604.6112 [facility] Youth: [phone] [facility]: [phone] (free counseling) [employer] Access Hotline: 980-595-EDVC (622-342-2793) 24-hour crisis text hotline: Text the word "4hope" to 875-809 for crisis support. Texting this number is [...] you may qualify for Medicaid/public assistance: The [facility] Department of Job and Family Services can now process zayas (TANF), food (SNAP) and Medicaid Applications over the phone. Please call [phone] ([phone]) and apply over the phone or apply online at www.benefits.[place].gov. Monday-Monday 8am-12pm noon. Medication Assistance Programs [employer] members can buy 100+ common prescriptions for FREE, $3 or $6. Annual membership is $36 for individuals and $72 for families (up to 6 people, including pets). Sign up online or enroll at your nearest pharmacy! [employer], web site can provide a significant number of coupons for medications at a much lower raymundo. [place] Department of Aging The Department of Aging administers programs and services to meet the needs of older [place]. Services and resources offered per county may include transportation, housekeeping, meals and nutrition, personal care, case management, safety monitoring, home medical equipment, legal services, director financial planning, health and wellness, education, caregiver support, respite care, etc. Call to be connected to the [facility] agency on aging serving your community or visit aging.[place].gov/find-services. Request a consultation with a community resource expert at ltssi.age.[place].gov/ [facility] Stroke Support The [facility] Stroke Support Group is for stroke survivors, friends, and family members. Meets on the Monday of each month from 6:30pm-7:30pm at [facility] ([address]; [place] [address]). Contact Chela Nolan, at [phone] or [email or web address]. If you are outside of the [place] area, contact The [employer] at www.stroke.org or 2-440-9-STROKE or for support groups in your area. You may also refer to the Your Care after a Stroke education booklet at go.[employer] [place].edu/seqs1611 for additional resources. * Medications* PATRIZIA Miner - 08/06/2024 8:38 AM EDT Know your medicines Make sure you know why you are taking each medicine. Make a master list of all your medicines. Write down the medicine names and doctors' names. Includedoses and side effects too. And write down why you take each medicine. Include all prescription fnmvlji-bib-muecxsg medicines, vitamins, and supplements. Keep this list [...] plan your refills so that you can cigar packer and picker all your medicines at the same [...] every 6 months. documented in this encounter[facility] History and physical note* PATRIZIA Lam - [...] Visual richards intact to confrontation. PERRL. 3mm housekeeper caregiver III, IV and : EOMI. No nystagmus. [...] SpO2 >92%; wean FiO2 as tolerated - [id number], encourage pulmonary toileting Cards: Essential HTN HLD [...] the assigned neurocritical care provider (resident, fellow, ICE CREAM VAN VENDOR, orPA) or page/call the corresponding number below NCC1 (Beds 7138-3837): Tracy # [phone], pager #[phone] NCC2 (Beds 1367-6792, 12 Nando, and overflow): Tracy #: [phone], pager #[phone] Cosigned by Richard Mejia MD at 08/02/2024 11:14 PM EDT documented in this [facility]U [facility] Nurse Note* Rachell Ruffin RN - 08/02/2024 3:13 PM EDT 9 cc air instilled in right radial TR band @ 1520. Glasses placed in bag wit label. Sent to PACU with patient on cart. documented [facility] Discharge summary [facility] Medical Records Department [address] [facility] [place] [address] Emergency Department Summary 08/02/24 MR#: [id number] Acct: [id number] Name: LINDSAY ACUNA Rep #:[id number] : [...] the EMR. states they returned home from [facility] about 1.5-2 weeks ago, and they both had colds. He is better, but she is "on round 2." [facility] Medical History Paroxysmal atrial fibrillation with [...] 71.4 H Lymph % (Auto) 17.9 L [place] % (Auto) 8.9 Eos % (Auto) 1.0 [...] at 1250 hours. Reading Location: [facility] Head/Neck CTA 08/02/24 12:24 IMPRESSION: RIGHT CAROTID: Mild degree of calcific plaque at the origin of the right internal carotid artery. LEFT CAROTID: Mild degree of calcific plaque at the origin of the left internal carotid artery. VERTEBRALS: Dominant left vertebral artery INTRACRANIAL: Unremarkable Other impression: No significant stenosis seen. [facility] Rhythm Strip Rhythm Strip: A-fib Rate: 90 Ectopy: None EKG Initial EKG: Attestation: I personally reviewed and interpreted this EKG as follows: Interpretation: No Acute Injury Pattern, Atrial Fibrillation and Non-Specific ST Changes Management Discussion w/another healthcare provider: Medical Supply Technician ([facility] stroke neurology) and Radiologist Stroke Documentation [...] min), Including time spent:, Discussing w/Patient &/or Family/Health Information Technologist, Discussing w/Consultants, Arranging Admission or Transfer and [...] MD [Primary Care Provider] - Print Language: Malaysian Disposition Disposition: Acute Care Hospital [facility] [place] What to do if you have Problems For any increased pain, shortness of breath, bleeding, nausea or vomiting, chestpain, or any unexpected problems, contact your Primary Care Provider. Call [facility] ([phone]) or report tothe closest Emergency Room. Call 911 if necessary. 08/02/24 1316 Cosigner Signature (if applicable): CC: Dr. Kameron Caruso MD ~ Signed [facility]03-21-2025 Radiology Diagnostic study note [facility] Imaging Services [address] [place] [address] STROKE CTA Head AND Neck W/Con MR#: [id number] Acct: [id number] Name: LINDSAY ACUNA Rep #: [id number] : 1945 F 78 From: Regulo Hargrove MD PCP: Dr. Kameron Caruso MD Status: RE G ER Study:STROKE CTA Head AND Neck W/Con Date of Exam: 08/02/24 Exam# [id number] Ordering Dr: Roby Morgan MD PROCEDURE: STROKE [...] impression: No significant stenosis seen. Reading Location: [place] [address] CC: Dr. Pieter Morgan MD; Dr. Kameron Caruso MD ~ Tube Bending Machine Operator: Signed [facility]03-21-2025 Radiology Diagnostic study note [facility] Imaging Services [address] [place] [id number] STROKE Brain/Head without Cont MR#: [id number] Acct: [id number] Name: LINDSAY ACUNA Rep #: [id number] : 1945 F 78 From: Chantelle Cardoso MD PCP: Dr. Kameron Caruso MD Status: RE G ER Study:STROKE Brain/Head without Cont Date of Exam: 08/02/24 Exam# [id number] Ordering Dr: Roby Morgan MD EXAM: CT [...] at 1250 hours. Reading Location: [facility] CC: Dr. Pieter Morgan MD; Dr. Kameron Caruso MD ~ Tube Bending Machine Operator: Signed [facility]02-19-2025 Telephone encounter Note* Telephone Encounter - Mj Glover APRN.CNP - 07/03/2024 12:28 PM EST The following approved medication requests have been transmitted electronically. Requested Prescriptions Signed Prescriptions Disp Refills doxycycline monohydrate (MONODOX) 100 mg capsule 56 capsule 0 Sig: Take 1 capsule by mouth two times a day for 28 days. Authorizing Provider: MJ GLOVER APRN.CNP [facility]02-19-2025 Miscellaneous Notes* Telephone Encounter - [...] calling: self Call patient at: on cell [phone] (home) [phone] (cell) Was an appointment scheduled: No Closing statement: Results or non-symptom based questions: Thank you for calling [facility], your call will be returned within the next business day. Katrina Coombs documented in this encounterUniversity Hospitals [facility]02-19-2025 Telephone encounter Note * Telephone [...] calling: self Call patient at: on cell [phone] (home) [phone] (cell) Was an appointment scheduled: No Closing statement: Results or non-symptom based questions: Thank you for calling [facility], your call will be returned within the next business day. Katrina Coombs [facility]02-18-2025 Telephone encounter Note* Telephone Encounter - Katia Grullon RN - 07/02/2024 11:57 AM EST Patient calls and is requesting Cardiology referral to be faxed to [facility]. Faxed referral as requested. Katia Grullon RN [facility]02-18-2025 Miscellaneous Notes* Telephone Encounter - Katia Grullon RN - 07/02/2024 11:57 AM EST Patient calls and is requesting Cardiology referral to be faxed to [facility]. Faxed referral as requested. Katia Grullon RN documented in this encounterUniversity Hospitals [facility] Center02-17-2025 Telephone encounter Note * Telephone Encounter - rBet Arambula LPN - 07/01/2024 12:39 PM EST Patient notified of Rx, verbalizes understanding of instructions. Bret Arambula LPN [facility]02-17-2025 Miscellaneous Notes* Telephone Encounter - [...] calling: self Call patient at: on cell [phone] (home) [phone] (cell) Was an appointment scheduled: Leslie Swanson documented in this encounterUniversity Hospitals [facility] Center02-17-2025 Telephone encounter Note * Telephone [...] 7 days. Authorizing Provider: MJ GLOVER APRN.CNP [facility]02-14-2025 Telephone encounter Note* Telephone Encounter - Adenike Walton MA - 06/28/2024 3:08 PM EST Please review pt message and advise. Adenike Walton MA [facility]02-14-2025 Telephone encounter Note* Telephone Encounter [...] calling: self Call patient at: on cell [phone] (home) [phone] (cell) Was an appointment scheduled: Leslie Swanson [facility]02-12-2025 Instructions* Patient Instructions* Emma Sotomayor APRN.CNP - 06/26/2024 10:00 AM EST Recommend consult with cardiology Continue to take all medication as prescribed Get repeat thyroid labs when you get back from vacation Contact the office with preferred malaria medication Follow up in 6 months. documented in this encounterUniversity Hospitals [facility] Center02-12-2025 History of Present illness Narrative* Emma Sotomayor APRN.VP BIOLOGY - 06/26/2024 9:40 AM EST This is [...] APRN.CNP This note was partially generated using Campus [employer] voice recognition system. Note was reviewed for accuracy. There may be minor misspellings or grammar miscues with [employer] voice recognition. documented in this encounterUniversity Hospitals [facility]point [facility] Center02-12-2025 NoteHNO ID: [id number] Author: EMMA SOTOMAYOR APRN.CNP Service: ? Author [...] hematochezia/melena. No heartburn o (more content not included)...[facility]02-10-2025 Telephone encounter Note* Telephone Encounter - Kameron Caruso MD - 06/24/2024 7:26 PM EST Noted Kameron Caruso MD [facility]02-10-2025 Miscellaneous Notes* Telephone Encounter - [...] this. Katia Grullon RN documented in this encounterUniversity Hospitals Tripoint [facility] Center02-10-2025 Telephone encounter Note * Telephone Encounter - Katia Grullon RN - 06/24/2024 1:20 PM EST Patient calls and states that she is going to be going to [place] and will need medications for Malaria Patient does have appointment with provider tomorrow, but wanted to give provider heads up that she will be needing this. Katia Grullon RN [facility]01-28-2025 Telephone encounter Note* Telephone Encounter - Naima Marshall RN - 06/11/2024 4:17 PM EST Pt called and is notified of providers results and instructions. Pt voices understanding. Naima Marshall RN [facility]01-28-2025 Miscellaneous Notes* Telephone Encounter - Naima Marshall RN - 06/11/2024 4:17 PM EST Pt called and is notified of providers results and instructions. Pt voices understanding. Naima Marshall RN * Telephone Encounter - Kameron Caruso MD - 06/11/2024 2:42 PM EST Please notify patient that her echocardiogram looks OK; continue with the meds as prescribed. Kameron Caruso MD documented in this encounterUniversity Hospitals Tripoint [facility] Center01-28-2025 Telephone encounter Note * Telephone [...] and pick them up. Naima Marshall RN [facility]01-28-2025 Miscellaneous Notes* Telephone Encounter - [...] call and advise Pt. documented in this encounterUniversity Hospitals Tripoint [facility] Center01-28-2025 Telephone encounter Note * Telephone Encounter - Kameron Caruso MD - 06/11/2024 2:42 PM EST Please notify patient that her echocardiogram looks OK; continue with the meds as prescribed. Kameron Caruso MD [facility]01-27-2025 Telephone encounter Note* Telephone Encounter [...] 5 mg twice daily. Adenike Walton MA [facility]01-27-2025 Telephone encounter Note* Telephone Encounter - Naima Marshall RN - 06/10/2024 2:05 PM EST Called and left a message with her to have the Pt call back for providers message. Naima Marshall RN [facility]01-27-2025 Telephone encounter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 unspecified hyperlipidemia type Hypothyroidism, unspecified type Edema of left lower leg Memory loss [facility]* Diagnosis Essential hypertension, [...] unspecified type (HCC) documented in this encounter [facility] note* Diagnosis Atrial fibrillation, unspecified type (HCC)- Primary Hypothyroidism, unspecified type Need for malaria prophylaxis documented in this encounter [facility] note* Diagnosis History of traveler's diarrhea- Primary Personal history of other diseases of digestive system documented in this encounter [facility] note* Diagnosis History of traveler's diarrhea Personal history of other diseases of digestive system documented in this encounter [facility] noteNo assessment information availableWKnox Community Hospital Work Phone: Evaluation note* Diagnosis Acute ischemic right MCA stroke- Primary Unspecified cerebral artery occlusion with cerebral infarction Cerebrovascular accident (CVA), unspecified mechanism Renal disease (High Serum Creatinine) Unspecified disorder of kidney and ureter Type 2 diabetes mellitus with hyperglycemia Type II or unspecified type diabetes mellitus without mention of complication, not stated as uncontrolled [facility] N[facility] No data available for this section [place] Reason for referral (narrative)* Outpatient Procedure (Routine) - Pending Review Specialty Diagnoses / Procedures Referred By Qiana almodovar [facility] Diagnoses Atrial fibrillation, unspecified type (HCC) Procedures ECHO ECHO TTHRC R-T 2D W/WOM-MODE COMPL SPEC&COLR Kameron Cornejo MD [address] [place] [address] [facility] [address] [address] Referral ID Status Reason Start Date Expiration Date Visits Requested Visits Authorized [id number] Pending Review Auto-Generat ed Referral 05/31/2024 05/31/2025 1 1 * Outpatient Procedure (Routine) - New Request Specialty Diagnoses / Procedures Referred By Qiana almodovar Ref[facility] Diagnoses Irregular heart beat Procedures ECG COMPLETE ECG ROUTINE ECG W/LEAST 12 LDS W/I&R Kameron Caruso MD [address] [place] [address] [facility] [place] [address] [place] [address] Referral ID Status Reason Start Date Expiration Date Visits Requested Visits Authorized [id number] New Request Auto-Generat ed Referral 05/31/2024 05/31/2025 1 1 [facility] for referral (narrative)No reason for referral information availableWKnox Community Hospital Work Phone: Reason for visit Narrative* Auth/Cert Specialty Diagnoses / Procedures Referred By Qiana t Referred To Contact Diagnoses Acute ischemic right MCA stroke Cerebrovascular Accident (Level A Ishemic Stroke) Prema Rodgers MD [address] [place] [address] Phone: tel: fax: [facility] [address] [place] [address] Referral ID Status Reason Start Date Expiration Date Visits Re quested Visits Authorized [id number] 1 1 [facility] Summary Purpose Family History No Family History Records Found Relationship Condition Age at Onset Recorded Date/T monse mother Diabetes mellitus Unknown Hypertension Unknown Psychiatric disorder Unknown grandmother Malignant neoplasm Unknown sister Disorder of thyroid Unknown Advance Directives No Advanced Directives Records FoundDocuments on File Type Date Recorded 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 Advance Directives and Living Will Power of Glass Selector Latest Code Status on File Code Status Date Activated Date Inactivated Comments Full Code 01/09/2019 10:16 AM Latest Code Status on File Code Status Date Activated Date Inactivated Comments Full Code 10/16/2019 9:16 AM Full Code 01/09/2019 10:16 AM 01/09/2019 2:23 PM Documents on File Type Date Recorded 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 No August 02, 2024 12:46pm Date Activated [...] patient had a polyp identified by on {time:24109}. Biopsies {are/were w not:9034} taken. The patient's usual bowel pattern is {bowel pattern:82713}. Bowel movements {bowel changes:67263} . {abd pain:10453}. The patient has noted{bleeding with BM:31538}. The patient {does/do/not:80886} have a family history of colon polyps. The patient {does/do/not:52751} have a family history of colon cancer. [...] WORK September 10, 2024 5:0 0am AFIB ([facility]) October 02, 2024 9:29a m Chief Complaint [...] WORK October 01, 2024 5:00a m AFIB ([facility]) October 02, 2024 9:29a m LAB WORK October 08, 2024 5:00a m MONTHLY EXAM October 09, 2024 5:45p m [facility] LAB WORK October 15, 2024 5:0 0am [facility] LAB WORK October 22, 2024 5: 00am JAIL LAB WORK October 23, 2024 5: 00am JAIL LAB WORK October 29, 2024 5: 00am [...] WORK October 01, 2024 5:00a m AFIB ([facility]) October 02, 2024 9:29a m LAB WORK October 08, 2024 5:00a m MONTHLY EXAM October 09, 2024 5:45p m JAIL LAB WORK October 15, 2024 5:0 0am JAIL LAB WORK October 22, 2024 5: 00am JAIL LAB WORK October 23, 2024 5: 00am JAIL LAB WORK October 29, 2024 5: 00am NEW CONCERN October 30, 2024 6:00 pm JAIL LAB WORK November 12, 2024 5:0 0am [...] MONTHLY EXAM October 09, 2024 5:45p m JAIL LAB WORK October 15, 2024 5:0 0am JAIL LAB WORK October 22, 2024 5: 00am NEW CONCERN October 22, 2024 12:4 5pm JAIL LAB WORK October 23, 2024 5: 00am JAIL LAB WORK October 29, 2024 5: 00am NEW CONCERN October 30, 2024 6:00 pm JAIL LAB WORK November 12, 2024 5:0 0am [...] WORK October 01, 2024 5:00a m AFIB ([facility]) October 02, 2024 9:29a m LAB WORK October 08, 2024 5:00a m MONTHLY EXAM October 09, 2024 5:45p m JAIL LAB WORK October 15, 2024 5:0 0am JAIL LAB WORK October 22, 2024 5: 00am NEW CONCERN October 22, 2024 12:4 5pm JAIL LAB WORK October 23, 2024 5: 00am JAIL LAB WORK October 29, 2024 5: 00am FU VISIT October 29, 2024 7:15 pm NEW CONCERN October 30, 2024 6:00 pm JAIL LAB WORK November 12, 2024 5:0 0am Chief Complaint Admit Date LAB WORK September 10, 2024 5:0 0am ADMISSION EXAM September 10, 2024 12: 49pm ADMISSION EXAM September 11, 2024 3:0 8pm LAB WORK September 17, 2024 5:00am LABWORK September 24, 2024 5:00a m LAB WORK September 29, 2024 5:44p m LAB WORK October 01, 2024 5:00a [facility] October 02, 2024 9:29a m LAB WORK October 08, 2024 5:00a m MONTHLY EXAM October 09, 2024 5:45p m JAIL LAB WORK October 15, 2024 5:0 0am JAIL LAB WORK October 22, 2024 5: 00am NEW CONCERN October 22, 2024 12:4 5pm JAIL LAB WORK October 23, 2024 5: 00am JAIL LAB WORK October 29, 2024 5: 00am FU VISIT October 29, 2024 7:15 pm NEW CONCERN October 30, 2024 6:00 pm JAIL LAB WORK November 05, 2024 5: 00am JAIL LAB WORK November 12, 2024 5:0 0am JAIL LAB WORK November 19, 2024 4:0 0am New Concern November 20, 2024 10:49 am LABWORK November 25, 2024 2:00 am JAIL LAB WORK November 26, 2024 5: 20am New Concern November 28, 2024 4:43 pm JAIL LAB WORK December 03, 2024 5: 00am Chief Complaint Admit Date LAB WORK September 10, 2024 5:0 0am ADMISSION EXAM September 10, 2024 12: 49pm ADMISSION EXAM September 11, 2024 3:0 8pm LAB WORK September 17, 2024 5:00am LABWORK September 24, 2024 5:00a m LAB WORK September 29, 2024 5:44p m LAB WORK October 01, 2024 5:00a m AFIB ([facility]) October 02, 2024 9:29a m LAB WORK October 08, 2024 5:00a m MONTHLY EXAM October 09, 2024 5:45p m JAIL LAB WORK October 15, 2024 5:0 0am JAIL LAB WORK October 22, 2024 5: 00am NEW CONCERN October 22, 2024 12:4 5pm JAIL LAB WORK October 23, 2024 5: 00am JAIL LAB WORK October 29, 2024 5: 00am FU VISIT October 29, 2024 7:15 pm NEW CONCERN October 30, 2024 6:00 pm JAIL LAB WORK November 05, 2024 5: 00am JAIL LAB WORK November 12, 2024 5:0 0am JAIL LAB WORK November 19, 2024 4:0 0am New Concern November 20, 2024 10:49 am LABWORK November 25, 2024 2:00 am JAIL LAB WORK November 26, 2024 5: 20am JAIL LAB WORK December 03, 2024 5: 00am Chief Complaint Admit Date LAB WORK September 10, 2024 5:0 0am ADMISSION EXAM September 10, 2024 12: 49pm ADMISSION EXAM September 11, 2024 3:0 8pm LAB WORK September 17, 2024 5:00am LABWORK September 24, 2024 5:00a m LAB WORK September 29, 2024 5:44p m LAB WORK October 01, 2024 5:00a m AFIB ([facility]) October 02, 2024 9:29a m LAB WORK October 08, 2024 5:00a m MONTHLY EXAM October 09, 2024 5:45p m JAIL LAB WORK October 15, 2024 5:0 0am JAIL LAB WORK October 22, 2024 5: 00am NEW CONCERN October 22, 2024 12:4 5pm JAIL LAB WORK October 23, 2024 5: 00am JAIL LAB WORK October 29, 2024 5: 00am FU VISIT October 29, 2024 7:15 pm NEW CONCERN October 30, 2024 6:00 pm JAIL LAB WORK November 05, 2024 5: 00am JAIL LAB WORK November 12, 2024 5:0 0am JAIL LAB WORK November 19, 2024 4:0 0am New Concern November 20, 2024 10:49 am LABWORK November 25, 2024 2:00 am JAIL LAB WORK November 26, 2024 5: 20am New Concern November 28, 2024 4:43 pm JAIL LAB WORK December 03, 2024 5: 00am JAIL LAB WORK December 10, 2024 6: 20am JAIL LAB WORK December 17, 2024 5 :00am JAIL LAB WORK December 24, 2024 5:00am JAIL LAB WORK December 31, 2024 4:00am MONTHLY EXAM December 31, 2024 12 :07pm Additional Source Comments INFORMATION SOURCE (unrecogn ized section and content) DATE CREATED AUTHOR 08/31/2018 [facility] ([place]) DATE CREATED AUTHOR AUTHOR'S ORGANIZ ATION 10/18/2019 [facility] DATE CREATED AUTHOR AUTHOR'S ORGANIZ ATION 08/04/2024 [facility] DATE CREATED AUTHOR [facility]S [facility]IZ ATION [facility] DATE CREATED AUTHOR AUTHOR'S ORGANIZ ATION 09/01/2024 [facility] DATE CREATED AUTHOR AUTHOR'S ORGANIZ ATION 10/13/2024 [facility] DATE CREATED AUTHOR AUTHOR'S ORGANIZ ATION 11/08/2024 [facility] DATE CREATED AUTHOR AUTHOR'S ORGANIZ ATION 01/10/2025 [facility] Source Comments (unrecognize d section and content) In the event this informatio n is protected by the Federal Confidentiality of Alcohol and Drug Abuse Patient Records regulations: The Federal rules restrict any use of the information to criminally investigate or prosecute any alcohol or drug abuse patient.[facility] CenterIn the event this information is protected by the Federal Confidentiality of Alcohol and Drug Abuse Patient Records regulations: The Federal rules restrict any use of the information to criminally investigate or prosecute any alcohol or drug abuse patient.[facility] CenterIn the event this information is protected by the Federal Confidentiality of Alcohol and Drug Abuse Patient Records regulations: The Federal rules restrict any use of the information to criminally investigate or prosecute any alcohol or drug abuse patient.[facility] CenterIn the event this information is protected by the Federal Confidentiality of Alcohol and Drug Abuse Patient Records regulations: The Federal rules restrict any use of the information to criminally investigate or prosecute any alcohol or drug abuse patient.[facility] CenterIn the event this information is protected by the Federal Confidentiality of Alcohol and Drug Abuse Patient Records regulations: The Federal rules restrict any use of the information to criminally investigate or prosecute any alcohol or drug abuse patient.[facility] CenterIn the event this information is protected by the Federal Confidentiality of Alcohol and Drug Abuse Patient Records regulations: The Federal rules restrict any use of the information to criminally investigate or prosecute any alcohol or drug abuse patient.[facility] CenterIn the event this information is protected by the Federal Confidentiality of Alcohol and Drug Abuse Patient Records regulations: The Federal rules restrict any use of the information to criminally investigate or prosecute any alcohol or drug abuse patient.[facility] CenterIn the event this information is protected by the Federal Confidentiality of Alcohol and Drug Abuse Patient Records regulations: The Federal rules restrict any use of the information to criminally investigate or prosecute any alcohol or drug abuse patient.[facility] CenterIn the event this information is protected by the Federal Confidentiality of Alcohol and Drug Abuse Patient Records regulations: The Federal rules restrict any use of the information to criminally investigate or prosecute any alcohol or drug abuse patient.[facility] CenterIn the event this information is protected by the Federal Confidentiality of Alcohol and Drug Abuse Patient Records regulations: The Federal rules restrict any use of the information to criminally investigate or prosecute any alcohol or drug abuse patient.[facility] CenterIn the event this information is protected by the Federal Confidentiality of Alcohol and Drug Abuse Patient Records regulations: The Federal rules restrict any use of the information to criminally investigate or prosecute any alcohol or drug abuse patient.[facility] CenterIn the event this information is protected by the Federal Confidentiality of Alcohol and Drug Abuse Patient Records regulations: The Federal rules restrict any use of the information to criminally investigate or prosecute any alcohol or drug abuse patient.[facility] CenterIn the event this information is protected by the Federal Confidentiality of Alcohol and Drug Abuse Patient Records regulations: The Federal rules restrict any use of the information to criminally investigate or prosecute any alcohol or drug abuse patient.[facility] CenterIn the event this information is protected by the Federal Confidentiality of Alcohol and Drug Abuse Patient Records regulations: The Federal rules restrict any use of the information to criminally investigate or prosecute any alcohol or drug abuse patient.[facility] CenterIn the event this information is protected by the Federal Confidentiality of Alcohol and Drug Abuse Patient Records regulations: The Federal rules restrict any use of the information to criminally investigate or prosecute any alcohol or drug abuse patient.[facility] CenterIn the event this information is protected by the Federal Confidentiality of Alcohol and Drug Abuse Patient Records regulations: The Federal rules restrict any use of the information to criminally investigate or prosecute any alcohol or drug abuse patient.[facility] CenterIn the event this information is protected by the Federal Confidentiality of Alcohol and Drug Abuse Patient Records regulations: The Federal rules restrict any use of the information to criminally investigate or prosecute any alcohol or drug abuse patient.[facility] CenterIn the event this information is protected by the Federal Confidentiality of Alcohol and Drug Abuse Patient Records regulations: The Federal rules restrict any use of the information to criminally investigate or prosecute any alcohol or drug abuse patient.[facility] CenterIn the event this information is protected by the Federal Confidentiality of Alcohol and Drug Abuse Patient Records regulations: The Federal rules restrict any use of the information to criminally investigate or prosecute any alcohol or drug abuse patient.[facility] CenterIn the event this information is protected by the Federal Confidentiality of Alcohol and Drug Abuse Patient Records regulations: The Federal rules restrict any use of the information to criminally investigate or prosecute any alcohol or drug abuse patient.[facility] CenterIn the event this information is protected by the Federal Confidentiality of Alcohol and Drug Abuse Patient Records regulations: The Federal rules restrict any use of the information to criminally investigate or prosecute any alcohol or drug abuse patient.[facility] CenterIn the event this information is protected by the Federal Confidentiality of Alcohol and Drug Abuse Patient Records regulations: The Federal rules restrict any use of the information to criminally investigate or prosecute any alcohol or drug abuse patient.[facility] CenterIn the event this information is protected by the Federal Confidentiality of Alcohol and Drug Abuse Patient Records regulations: The Federal rules restrict any use of the information to criminally investigate or prosecute any alcohol or drug abuse patient.[facility] CenterIn the event this information is protected by the Federal Confidentiality of Alcohol and Drug Abuse Patient Records regulations: The Federal rules restrict any use of the information to criminally investigate or prosecute any alcohol or drug abuse patient.[facility] CenterIn the event this information is protected by the Federal Confidentiality of Alcohol and Drug Abuse Patient Records regulations: The Federal rules restrict any use of the information to criminally investigate or prosecute any alcohol or drug abuse patient.[facility] CenterIn the event this information is protected by the Federal Confidentiality of Alcohol and Drug Abuse Patient Records regulations: The Federal rules restrict any use of the information to criminally investigate or prosecute any alcohol or drug abuse patient.[facility] CenterIn the event this information is protected by the Federal Confidentiality of Alcohol and Drug Abuse Patient Records regulations: The Federal rules restrict any use of the information to criminally investigate or prosecute any alcohol or drug abuse patient.[facility] CenterIn the event this information is protected by the Federal Confidentiality of Alcohol and Drug Abuse Patient Records regulations: The Federal rules restrict any use of the information to criminally investigate or prosecute any alcohol or drug abuse patient.[facility] Reason for Visit (unrecogniz ed [...] Comments request for medication Reason Comments Tyler [facility] requesting verbal agree to f ollow Care Teams (unrecognized sec tion and content) Coremaking Machine Setter Relationship Specialty Start Date End Date Kameron Caruso MD [address] [place] [address] PCP - General Family Practice 09/21/15 Coremaking Machine Setter Relationship Specialty Start Date End Date Kameron Caruso MD [address] [place] [address] PCP - General Family Practice 09/21/15 Coremaking Machine Setter Relationship Specialty Start Date End Date Kameron Caruso MD [address] [place] [address] PCP - General Family Practice 09/21/15 Coremaking Machine Setter Relationship Specialty Start Date End Date Kameron Caruso MD [address] [place] [address] PCP - General Family Practice 09/21/15 Coremaking Machine Setter Relationship Specialty Start Date End Date Kameron Caruso MD [address] [place] [address] PCP - General Family Practice 09/21/15 Coremaking Machine Setter Relationship Specialty Start Date End Date Kameron Caruso MD [address] [place] [address] PCP - General Family Practice 09/21/15 Coremaking Machine Setter Relationship Specialty Start Date End Date Kameron Caruso MD [address] [place] [address] PCP - General Family Medicine 09/21/15 Coremaking Machine Setter Relationship Specialty Start Date End Date Kameron Caruso MD [address] [place] [address] PCP - General Family Medicine 09/21/15 Coremaking Machine Setter Relationship Specialty Start Date End Date Kameron Caruso MD [address] [place] [address] PCP - General Family Medicine 09/21/15 Coremaking Machine Setter Relationship Specialty Start Date End Date Kameron Caruso MD [address] [place] [address] PCP - General Family Medicine 09/21/15 Coremaking Machine Setter Relationship Specialty Start Date End Date Kameron Caruso MD [address] [place] [address] PCP - General Family Medicine 09/21/15 Coremaking Machine Setter Relationship Specialty Start Date End Date Kameron Caruso MD [address] [place] [address] PCP - General Family Medicine 09/21/15 Coremaking Machine Setter Relationship Specialty Start Date End Date Kameron Caruso MD [address] [place] [address] PCP - General Family Medicine 09/21/15 Coremaking Machine Setter Relationship Specialty Start Date End Date Kameron Caruso MD [address] [place] [address] PCP - General Family Medicine 09/21/15 Coremaking Machine Setter Relationship Specialty Start Date End Date Kameron Caruso MD [address] [place] [address] PCP - General Family Medicine 09/21/15 Coremaking Machine Setter Relationship Specialty Start Date End Date Kameron Caruso MD [address] [place] [address] PCP - General Family Medicine 09/21/15 Emma Sotomayor APRN.VP BIOLOGY [address] [place] [address] Graphite Pan Drier Tender Family Medicine 04/21/24 Mj Glover APRN.VP BIOLOGY [address] [place] [address] Graphite Pan Drier Tender Family Medicine 04/30/24 Coremaking Machine Setter Relationship Specialty Start Date End Date Kameron Caruso MD [address] [place] [address] PCP - General Family Medicine 09/21/15 Emma Sotomayor APRN.VP BIOLOGY [address] [place] [address] Graphite Pan Drier Tender Family Medicine 04/21/24 Mj Glover APRN.VP BIOLOGY [address] [place] [address] Graphite Pan Drier Tender Family Medicine 04/30/24 Coremaking Machine Setter Relationship Specialty Start Date End Date Kameron Caruso MD [address] [place] [address] PCP - General Family Medicine 09/21/15 Emma Sotomayor APRN.VP BIOLOGY [address] [place] [address] Graphite Pan Drier Tender Family Medicine 04/21/24 Mj Glover APRN.VP BIOLOGY [address] [place] [address] Graphite Pan Drier Tender Family Medicine 04/30/24 Coremaking Machine Setter Relationship Specialty Start Date End Date Kameron Caruso MD [address] [place] [address] PCP - General Family Medicine 09/21/15 Emma Sotomayor APRN.VP BIOLOGY [address] [place] [address] Graphite Pan Drier Tender Family Medicine 04/21/24 Mj Glover APRN.VP BIOLOGY [address] [place] [address] Graphite Pan Drier Tender Family Medicine 04/30/24 Coremaking Machine Setter Relationship Specialty Start Date End Date Kameron Caruso MD [address] [place] [address] PCP - General Family Medicine 09/21/15 Emma Sotomayor APRN.VP BIOLOGY [address] [place] [address] Graphite Pan Drier Tender Family Medicine 04/21/24 Mj Glover APRN.VP BIOLOGY [address] [place] [address] Graphite Pan Drier Tender Family Medicine 04/30/24 Coremaking Machine Setter Relationship Specialty Start Date End Date Kameron Caruso MD [address] [place] [address] PCP - General Family Medicine 09/21/15 Emma Sotomayor APRN.VP BIOLOGY [address] [place] [address] Graphite Pan Drier Tender Family Medicine 04/21/24 Mj Glover APRN.VP BIOLOGY [address] [place] [address] Graphite Pan Drier Tender Family Medicine 04/30/24 Coremaking Machine Setter Relationship Specialty Start Date End Date Kameron Caruso MD [address] [place] [address] PCP - General Family Medicine 09/21/15 Emma Sotomayor APRN.VP BIOLOGY [address] [place] [address] Graphite Pan Drier Tender Family Medicine 04/21/24 Mj Glover APRN.VP BIOLOGY [address] [place] [address] Graphite Pan Drier Tender Family Medicine 04/30/24 Team Status: Active Member Role Status Dates Dr. Kameron Caruso MD Primary Care Provider Active Team Status: Inactive Member Role Status Dates Dr. Kameron Caruso MD Primary Care Provider Active Start: August 02, 2024 End: August 02, 2024 Dr. Pieter Morgan MD Emergency Provider Active Start: August 02, 2024 End: August 02, 2024 Coremaking Machine Setter Relationship Specialty Start Date End Date Kameron Caruso MD [address] [place] [address] PCP - General Family Medicine 08/03/24 Coremaking Machine Setter Relationship Specialty Start Date End Date Kameron Caruso MD [address] [place] [address] PCP - General Family Medicine 09/21/15 Emma Sotomayor APRN.VP BIOLOGY [address] [place] [address] Graphite Pan Drier Tender Family Medicine 04/21/24 Mj Glover HIGH SCHOOL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 COACH.VP BIOLOGY [address] [place] [address] Graphite Pan Drier Tender Family Medicine 04/30/24 Team Status: Inactive Member [...] End: September 11, 2024 Bret Snyder NP, [employer] Attending Provider Active Start: September 11, 2024 [...] aCruso MD Primary Care Provider Active Start: October 08, 2024 Safia VARGAS MD Attending Provider Active Start: October 08, 2024 Team Status: Inactive Member Role/Relationship Status Dates Dr. Kameron Caruso MD Primary Care Provider Active Start: October 09, 2024 End: October 09, 2024 Bret Snyder ICE CREAM VAN VENDOR, [employer]-C Attending Provider Active Start: October 09, 2024 [...] Status: Active Member Role/Relationship Status Dates Dr. Kamerno Caruso MD Primary Care Provider Active Start: [...] 2024 End: October 30, 2024 Bret Snyder ICE CREAM VAN VENDOR, [employer]-C Attending Provider Active Start: October 30, 2024 [...] End: October 22, 2024 Bret Snyder NP, [employer]-C Attending Provider Active Start: October 22, 2024 [...] End: October 30, 2024 Bret Snyder NP [employer] Attending Provider Active Start: October 30, 2024 [...] End: October 30, 2024 Bret Snyder NP [employer] Attending Provider Active Start: October 30, 2024 [...] 2024 End: September 11, 2024 Bret Snyder [employer] CREAM VAN VENDOR, [employer]-C Attending Provider Active Start: September 11, 2024 [...] End: October 09, 2024 Bret Snyder NP, [employer]-C Attending Provider Active Start: October 09, 2024 [...] End: October 22, 2024 Bret Snyder NP, [employer]-C Attending Provider Active Start: October 22, 2024 [...] 2024 End: November 20, 2024 Bret Snyder NP [employer] Attending Provider Active Start: November 20, 2024 [...] 2024 End: November 28, 2024 Bret Snyder NP [employer] Attending Provider Active Start: November 28, 2024 [...] Active Start: December 24, 2024 Team Status: Active Member Role/Relationship Status Dates Dr. Kameron Caruso MD Primary Care Provider Active Start: December 03, 2024 Safia VARGAS MD Attending Provider Active Start: December 03, 2024 Team Status: Active Member Role/Relationship Status Dates Dr. Kameron Caruos MD Primary Care Provider Active Start: December [...] Active Start: December 24, 2024 Team Status: Active Member Role/Relationship Status Dates Dr. Kameron Caruso MD Primary Care Provider Active Start: December 31, 2024 Safia VARGAS MD Attending Provider Active Start: December 31, 2024 Safia VARGAS MD Referring Provider Active Start: December 31, 2024 Team Status: Inactive Member Role/Relationship Status Dates Dr. Kameron Caruso MD Primary Care Provider Active Start: December 31, 2024 End: December 31, 2024 Dr. Safia Ruelas MD Attending Provider Active Start: December 31, 2024 End: December 31, 2024 Team Status: Active Member Role/Relationship Status Dates Dr. Kameron Caruso MD Primary Care Provider Active Start: January 07, 2025 Safia VARGAS MD Attending Provider Active Start: January 07, 2025 (unrecognized sect ion and content) No Status [...] Parekh RN)0507 (Given - Provider: Katia Parekh, RN)1140 (Given - Provider: Shanna Palmer RN)1753 [...] Shanna Palmer RN) 1001 (Given - Provider: nEeida Cespedes RN) 0901 (Given - Provider: Robson [...] HOURS, First dose (after last modification) on 08/12/24 at 1800, Until Discontinued, For tube patency. [...] LIQD () PEG Tube, CONTINUOUS, Starting on 08/12/24 at 1300, Until Mon08/14/24 at 0559, Over [...] RN) 0358 (New Feeding/Supplement - Provider: Shaila Eng, RN)0852 (Stopped - Provider: Eneida Cespedes RN) [...] Tube, EVERY 12 HOURS NEEDED, Starting on Mon25 at 2035, Until Diane 08/15/24 at 1259, [...] is greater than 200mg/dl, then notify warehouse shipping clerk. And BLOOD GLUCOSE (POC DEVICE) (CANCELED) Routine, [...] 50% needed, contact pharmacy or obtain from [facility] cart ++ And glucose (GLUTOSE) 40 [...] at 1301, Until Specified, Who to Notify: Covering Machine Operator, For all Blood Glucose LESS THAN 80 mg/dl, notify Covering Machine Operator after treatment per Hypoglycemia in Non- Adults [...] BE BASED ON THE PRIMARY CLINICAL RECORDS. [employer] [facility]. provides no warranty or guarantee of the accuracy or completeness of information in this document.
[2025-01-14 08:37] LABS: Hematocrit 37.6 % (37-47); Hemoglobin 12.1 g/dL (12.0-15.0); Immature Granulocytes Count 0.040 X10^3/uL (0.0-0.0); Mean Corp Hgb Conc 32.2 g/dL (32-36); Mean Corpuscular Volume 90.8 fL (81-99); Mean Platelet Vol. 11.6 fl (6.2-12.0); NRBC Flagged by Analyzer 0 % (0-5); Platelet Count 284 K/mm3 (150-450); RBC Distribution Width CV 14.6 % (11.6-14.6); RBC Distribution Width SD 48.7 fl (35.1-43.9); Red Blood Count 4.14 M/mm3 (4.2-5.4); White Blood Count 8.3 K/mm3 (4.4-11.0)
[2025-01-14 08:53] LABS: Anion Gap 13 (5-15); BUN 12 mg/dL (4-19); BUN/Creat Ratio 16.0 RATIO (10-20); Calcium,Total 8.8 mg/dL (7.6-11.0); Carbon Dioxide 22.8 mmol/L (21.0-32.0); Chloride 104 mmol/L (98-108); Glucose 137 mg/dL (70-99); Potassium 3.5 mmol/L (3.3-5.1)
== END ==
LOC: OLS.WHLTCC 04:00
PROVIDERS: PCP Family Medicine; Referring Provider Internal Medicine; Visit Provider Internal Medicine
DX: E11.9 Type 2 diabetes mellitus without complications (principal); E03.9 Hypothyroidism, unspecified
CPT/HCPCS: 36415; 80048; 84443; 85025

== ENCOUNTER → 2025-01-21 05:00 | Outpatient (REF) | payer MEDICARE, SELFPAY ==
[2025-01-21 07:03] LABS: Hematocrit 37.8 % (37-47); Hemoglobin 12.6 g/dL (12.0-15.0); Immature Granulocytes Count 0.030 X10^3/uL (0.0-0.0); Mean Corp Hgb Conc 33.3 g/dL (32-36); Mean Corpuscular Volume 89.6 fL (81-99); Mean Platelet Vol. 11.7 fl (6.2-12.0); NRBC Flagged by Analyzer 0 % (0-5); Platelet Count 280 K/mm3 (150-450); RBC Distribution Width CV 14.4 % (11.6-14.6); RBC Distribution Width SD 47.1 fl (35.1-43.9); Red Blood Count 4.22 M/mm3 (4.2-5.4); White Blood Count 8.5 K/mm3 (4.4-11.0)
[2025-01-21 07:22] LABS: Anion Gap 13 (5-15); BUN 14 mg/dL (4-19); BUN/Creat Ratio 20.0 RATIO (10-20); Calcium,Total 9.0 mg/dL (7.6-11.0); Carbon Dioxide 22.3 mmol/L (21.0-32.0); Chloride 102 mmol/L (98-108); Glucose 126 mg/dL (70-99); Potassium 3.6 mmol/L (3.3-5.1)
== END ==
LOC: OLS.WHLTCC 05:00
PROVIDERS: PCP Family Medicine; Visit Provider Internal Medicine
DX: I10 Essential (primary) hypertension (principal); I69.354 Hemiplegia and hemiparesis following cerebral infarction affecting left non-dominant side; I69.391 Dysphagia following cerebral infarction; E11.9 Type 2 diabetes mellitus without complications
CPT/HCPCS: 36415; 80048; 85025

== ENCOUNTER → 2025-01-28 05:00 | Outpatient (REF) | payer MEDICARE, SELFPAY ==
--- OUTSIDE RECORDS SUMMARY | 2025-01-28 04:32 | XMS RPT_ITS | CCD ---
Author Organization [facility] Care Team Providers Care [employer] Name Role Phone KETTY DOWNS Attending Unavailable [...] Kameron Caruso MD Primary Care Provider Светлана MOTORCYCLE MECHANIC APPRENTICE.Emma TUCKER Unavailable Saurav MOTORCYCLE MECHANIC APPRENTICE.Mj TUCKER Unavailable JUVENTINO ROGERS Attending Unavailable JUVENTINO ROGERS Admitting Unavailable CATA ALFRED Attending Unavailable CATA ALFRED Admitting Unavailable Dr. Kameron Caruso MD Primary Care Provider Dr. Pieter Morgan MD Emergency Provider Kameron Caruso MD Primary Care Provider Светлана MOTORCYCLE MECHANIC APPRENTICE.Emma TUCKER Unavailable Unavail able KAMERON CARUSO Referring Unavailable KAMERON CARUSO Primary Care Unavailable KAMERON CARUSO Attending Unavailable KAMERON CARUSO Primary Care Unavailable EMMA SOTOMAYOR Attending Unavailable LEO, KAMERON Beebe Primary Care Unavailable ELDERBROCK, KAMERON Beebe Primary Care Unavailable ELDERBROCK, KAMERON Beebe Primary Care Unavailable ELDERBROCK, KAMERON Beebe Referring Unavailable ELDERBROCK, KAMERON Beebe Primary Care Unavailable ELDERBROCK, KAMERON Beebe Attending Unavailable ELDERBROCK, KAMERON Beebe Primary Care Unavailable ELDERBROCK, KAMERON Beebe Referring Unavailable ELDERBROCK, KAMERON Beebe Primary Care Unavailable LEO, KAMERON Beebe Attending Unavailable LEO, KAMERON Beebe Primary Care Unavailable LEO LAWSON, DR MELO Primary Care Physician [phone] Cathy LAWSON, Dr. Stapleton Attending Provider Safia Ruelas MD Attending Provider UnavailDr. Kameron Marquez MD Referring Provider Makayla LAWSON, Dr. Barker Attending Provider LEO LAWSON, DR MELO Primary Care Unavailab le DAE PALMER, SILVINO Admitting Unavailable SCHEATZSHITAL DO, SILVINO Attending Unavailable BRYON LAWSON, DR REECE Consulting Unavailab shital HUTTON DO, NANDO Consulting Unavailable SUDARSHAN ARTN-FENCE RIDER, AMI Hwang Consulting Unavaila ari GIBSON PhD, [...] Care Unavailable Bret Snyder NP Attending Unavailable Oleghe OLS, Efewongbe Attending Unavailabl [...] Unavailable Elderbrock, Kameron Primary Care Unavailable [place] [employer] PLANT SUPERVISOR, Bret Attending Unavailable Elderbrock, Kameron Primary Care Unavailable [place] SPECIALTY PLANT SUPERVISOR, Bret Attending Unavailable Elderbrock, Kameron Primary Care Unavailable Oleghe, Efewongbe Attending Unavailable [place] SPECIALTY PLANT SUPERVISOR, Bret Attending Unavailable Elderbrock, Kameron Primary Care Unavailable [place] SPECIALTY PLANT SUPERVISOR, Bret Attending Unavailable Elderbrock, Kameron Primary Care Unavailable Oleghe, Efewongbe Attending Unavailable Elderbrock, Kameron Primary Care Unavailable Elderbrock, Kameron Primary Care Unavailable Elderbrock, Kameron Referring Unavailable Makayla, Mj Attending Unavailable Elderbrock, Kameron Primary Care Unavailable [place] SPECIALTY PLANT SUPERVISOR, Bret Attending Unavailable Oleghe OLS, Efewongbe Attending Unavailabl e Elderbrock, Kameron Primary Care Unavailable Oleghe OLS, Efewongbe Attending Unavailabl e Oleghe OLS, Efewongbe Referring Unavailabl e Elderbrock, Kameron Primary Care Unavailable Allergies Allergy Classification Reported Allergen(s) Allergy Type Date of Onset Reaction(s) Facility (2 sources) Sulfonamides (Antibiotic) Propensity to adverse reactions to drug 6 Other (See Comments) [place] (2 sources) Other Propensity to adverse reactions 6 Shortness Of Breath [place] (20 sources) Benzocaine; Translations: [BENZOCAINE] Drug Allergy 6 Rash [facility] Work Phone: (20 sources) Cocaine; Translations: [COCAINE] Drug Allergy 9 Inverted T waves [facility] Work Phone: (20 sources) Sulfonamides (Antibiotic); Translations: [SULFA (SULFONAMIDE ANTIBIOTICS)] Propensity to adverse reactions 6 Intolerance [facility] Work Phone: (20 sources) Perfumes; Translations: [PERFUMES] Propensity to adverse reactions 6 Shortness of Breath [facility] Work Phone: (9 sources) Sulfonamides (Antibiotic) Allergy to substance 5 Unknown [facility] (11 sources) perfume; Translations: [perfume] Allergy to substance 5 Shortness of breath [facility] (1 source) Cocaine; Translations: [cocaine nasal] Drug Allergy [facility] (1 source) Codeine; Translations: [codeine] Drug Allergy Pharyngeal swelling (finding) [facility] (1 source) Sulfonamide; Translations: [sulfa drugs] Drug allergy [facility] (1 source) Benzocaine Drug Allergy 5 [facility] (1 source) Cocaine Drug Allergy 5 [facility] (1 source) Sulfonamides (Antibiotic) Drug allergy (disorder) 5 [facility] Medications Current Medications Medication Drug Class(es) [...] 5 mg oral tablet (9 sources) Start: 025 Start: 09-05-2024 Aricept 5 mg o ral [...] kidney disease, unspecified CKD stage, unspecified whether gill box fixer insulin use (HCC) , Type 2 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, without long-term current use of insulin (HCC) TAKE 4 TABLETS BY MOUTH ONCE DAILY WITH BREAKFAST 360 tablet 3 01/11/2022 Active Start: 10-24-2018 metFORMIN (GLU COPHAGE-XR) 500 MG extended release tablet Take 2,000 mg by mouth 0 10/24/2018 Active Comment on above: Take 4 tablets by mo [facility] daily with breakfast. TAKE 4 TABLETS BY MO [facility] ONCE DAILY WITH BREAKFAST methylPREDNISolone (1 source) [...] Active 50 mg PO AT BEDTIME 90 October 02, 2024 12:00am Start: 08-15-2024 End: [...] mg/ml mouthwash (20 sources) Start: 2021 End: 03-21- 2025 Comment on above: Use 15 mL as [...] kidney disease, unspecified CKD stage, unspecified whether gill box fixer insulin use (HCC) Take 1 tablet by [...] 08-15-2024 Start: 08-04-2024 End: 08-09-2024 triamcinolone acetonide 0.60808 mg/mg topical ointment (3 sources) Corticosteroid Start: [...] HOURS, First dose (after last modification) on [facility] 08/03/24 at 1800, Until Discontinued, Correction factor [...] Routine, EVERY 6 HOURS, First occurrence on [facility] 08/03/24 at 1800, If any Blood Glucose (POC) is greater than 300mg/dl, treat per correction factor orders; and repeat Blood Glucose (POC) in 2 hours if second blood glucose is greater than 200mg/dl, then notify data warehouse manager. [Order 2 End] [Order 3 Start] [...] 50% needed, contact pharmacy or obtain from [employer] cart ++ [Order 5 End] [Order 6 [...] at 1301, Until Specified, Who to Notify: Healthcare Administrative Assistant, For all Blood Glucose LESS THAN 80 mg/dl, notify Healthcare Administrative Assistant after treatment per Hypoglycemia in Non- Adults [...] Coronary arteriosclerosis; Translations: [Atherosclerotic heart disease of [place] coronary artery without angina pectoris] Onset: 5 [...] osteoarthritis, unspecified site] Onset: Chronic Other aftercare (9 sources) 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; Translations: [alf (current) use of anticoagulants] 08-02-2024 Episodic Other aftercare (1 source) alf (current) use of aspirin; Translations: [right of way man (current) use of aspirin] Onset: Episodic Other aftercare (1 source) right of way man (current) use of anticoagulants; Translations: [right of way man (current) use of anticoagulants] Onset: Episodic Other aftercare (1 source) alf (current) use of oral hypoglycemic drugs; Translations: [alf (current) use of oral hypoglycemic drugs] Onset: [...] (1 source) Dysphagia; Translations: [Dysphagia, unspecified] Onset: 04-08-202 5 Episodic Other gastrointestinal disorders (1 source) [...] Onset: 5 Episodic Other upper respiratory infections (9 sources) [...] Auto (Unsp spec) [#/Vol] 2.90 10*3/uL 0.83-4.51 [facility] Anion gap in Serum or Plasma Ordered By: Safia Ruelas on 01-07-2025 Anion gap [Moles/Vol] 12 mmol/L 5- [facility] Automated lymphocyte count a s percentage of total leukocytesOrdered By: Safia Ruelas on 01-07-2025 Lymphocytes/100 WBC Auto (Unsp spec) 36.3 % - [facility] BUN/creatinine ratioOrdered By: Safia Ruelas on 01-07-2025 Urea nitrogen/Creatinine [Mass ratio] 15.4 mg/mg 10- [facility] Basophil percentageOrdered B y: Safia Ruelas on 01-07-2025 Basophils/100 WBC (Bld) 0.6 % 0-1 [facility] Carbon dioxide, total [Moles /volume] in Central venous bloodOrdered By: Safia Ruelas on 01-07-2025 CO2 [Moles/Vol] 23.2 mmol/L 21.0-32.0 [facility] Chloride assayOrdered By: Balbir Ruelas on 01-07-2025 Chloride [Moles/Vol] 104 mmol/L 98-108 [facility] Eosinophil percentageOrdered By: Safia Ruelas on 01-07-2025 Eosinophils/100 WBC (Bld) 2.3 % 0-5 [facility] Erythrocyte distribution wid th ratioOrdered By: sherry Ruelas on 01-07-2025 Erythrocyte distribution width (RBC) [Ratio] 14.6 % 11.6-14.6 [facility] Erythrocyte distribution wid th standard deviationOrdered By: Safia Ruelas on 01-07-2025 Erythrocyte distribution width (RBC) [Ratio] 48.5 fl High 35.1-43.9 [facility] Glomerular filtration rate ( GFR) estimation/1.73 sq m using serum, plasma, or whole bOrdered By: Safia Ruelas on 01-07-2025 GFR/1.73 sq M.predicted among non-blacks MDRD (S/P/Bld) [Vol rate/Area] 86 mL/min/{1.73_m2} >60 [facility] Hematocrit Auto (Bld) [Volum e fraction]Ordered By: Safia Ruelas 01-07-2025 Hematocrit (Bld) [Volume fraction] 36.6 % Low 37-47 [facility] Hemoglobin measurementOrdere d By: Safia Ruelas on 01-07-2025 Hemoglobin (Bld) [Mass/Vol] 11.9 g/dL Low 12.0-15.0 [facility] Immature granulocytes/100 WB C Auto (Bld)Ordered By: Safia Ruelas 01-07-2025 Immature granulocytes/100 WBC (Bld) 0.300 % 0.0-0.9 [facility] MCV (mean corpuscular volume ) determinationOrdered By: Safia Ruelas 01-07-2025 MCV (RBC) [Entitic vol] 90.6 fL 81-99 [facility] Mean corpuscular hemoglobin (MCH) determinationOrdered By: Safia Ruelas on 01-07-2025 MCH (RBC) [Entitic mass] 29.5 pg 27.0-32.0 [facility] Monocyte percentageOrdered B y: Safia Ruelas on 01-07-2025 Monocytes/100 WBC (Bld) 7.9 % 0-10 [facility] Neutrophil percentageOrdered By: Safia Griderbonimelanie on 01-07-2025 Neutrophils/100 WBC (Bld) 52.6 % 47-70 [facility] Platelet countOrdered By: Balbir Ruelas on 01-07-2025 Platelets (Bld) [#/Vol] 263 10*3/uL 150-450 [facility] Potassium measurement (mass/ volume)Ordered By: Safia Ruelas on 01-07-2025 Potassium (Unsp spec) [Mass/Vol] 3.5 mmol/L 3.3-5.1 [facility] RBC Auto (Bld) [#/Vol]Ordere d By: Safia Ruelas on 01-07-2025 RBC (Bld) [#/Vol] 4.04 10*6/uL Low 4.2-5.4 [facility] Serum creatinine measurement (mass/volume)Ordered By: Safia Ruelas on 01-07-2025 Creatinine [Mass/Vol] 0.71 mg/dL 0.70-1.20 [facility] Serum glucose measurement (m ass/volume)Ordered By: Safia Ruelas on 01-07-2025 Glucose [Mass/Vol] 139 mg/dL High 70-99 [facility] Serum or plasma calcium dayna urement (mass/volume)Ordered By: Safia Ruelas on 01-07-2025 Calcium [Mass/Vol] 8.5 mg/dL 7.6-11.0 [facility] Serum or plasma urea nitroge n measurement (mass/volume)Ordered By: Safia Ruelas on 01-07-2025 Urea nitrogen [Mass/Vol] 11 mg/dL 4-19 [facility] Sodium levelOrdered By: Leonides Ruelas on 01-07-2025 Sodium [Moles/Vol] 139 mmol/L 133-145 [facility] White blood cell (WBC) count Ordered By: Safia Ruelas on 01-07-2025 WBC (Bld) [#/Vol] 8.0 10*3/uL 4.4-11.0 [facility] Absolute lymphocyte countOrd ered By: Balbirjean mariejosé antonio Ruelas on 12-31-2024 Lymphocytes Auto (Unsp spec) [#/Vol] 2.27 10*3/uL 0.83-4.51 [facility] Anion gap in Serum or Plasma Ordered By: Balbirjean mariejosé antonio Cheoquyen on 12-31-2024 Anion gap [Moles/Vol] 14 mmol/L 5-15 [facility] Automated lymphocyte count a s percentage of total leukocytesOrdered By: Balbirjean mariejosé antonio Cheobonimelanie on 12-31-2024 Lymphocytes/100 WBC Auto (Unsp spec) 32.9 % 19-41 [facility] BUN/creatinine ratioOrdered By: Balbirjean mariejosé antonio Cheoquyen on 12-31-2024 Urea nitrogen/Creatinine [Mass ratio] 15.0 mg/mg 10-20 [facility] Basophil percentageOrdered B y: Safia Ruelas on 12-31-2024 Basophils/100 WBC (Bld) 0.6 % 0-1 [facility] Carbon dioxide, total [Moles /volume] in Central venous bloodOrdered By: Balbirjean mariejosé antonio Cheobonimelanie on 12-31-2024 CO2 [Moles/Vol] 22.1 mmol/L 21.0-32.0 [facility] Chloride assayOrdered By: Balbir sherry Cheobonimelanie on 12-31-2024 Chloride [Moles/Vol] 103 mmol/L 98-108 [facility] Eosinophil percentageOrdered By: Safia Cheoquyen on 12-31-2024 Eosinophils/100 WBC (Bld) 3.2 % 0-5 [facility] Erythrocyte distribution wid th ratioOrdered By: Balbirjean mariejosé antonio Cheobonimelanie on 12-31-2024 Erythrocyte distribution width (RBC) [Ratio] 14.6 % 11.6-14.6 [facility] Erythrocyte distribution wid th standard deviationOrdered By: Safia Ruelas on 12-31-2024 Erythrocyte distribution width (RBC) [Ratio] 48.9 fl High 35.1-43.9 [facility] Glomerular filtration rate ( GFR) estimation/1.73 sq m using serum, plasma, or whole bOrdered By: Safia Ruelas on 12-31-2024 GFR/1.73 sq M.predicted among non-blacks MDRD (S/P/Bld) [Vol rate/Area] 88 mL/min/{1.73_m2} >60 [facility] Hematocrit Auto (Bld) [Volum e fraction]Ordered By: Safia Ruelas on 12-31-2024 Hematocrit (Bld) [Volume fraction] 36.8 % Low 37-47 [facility] Hemoglobin A1c percentageOrd ered By: Safia Ruelas on 12-31-2024 HbA1c (Bld) [Mass fraction] 6.5 % High <5.7 [facility] Hemoglobin measurementOrdere d By: Safia Ruelas on 12-31-2024 Hemoglobin (Bld) [Mass/Vol] 11.8 g/dL Low 12.0-15.0 [facility] Immature granulocytes/100 WB C Auto (Bld)Ordered By: Safia Ruelas on 12-31-2024 Immature granulocytes/100 WBC (Bld) 0.300 % 0.0-0.9 [facility] MCV (mean corpuscular volume ) determinationOrdered By: Safia Ruelas on 12-31-2024 MCV (RBC) [Entitic vol] 91.3 fL 81-99 [facility] Mean corpuscular hemoglobin (MCH) determinationOrdered By: jean mariedonaldsonskye Ruelas on 12-31-2024 MCH (RBC) [Entitic mass] 29.3 pg 27.0-32.0 [facility] Monocyte percentageOrdered B y: Safia Ruelas on 12-31-2024 Monocytes/100 WBC (Bld) 9.4 % 0-10 [facility] Neutrophil percentageOrdered By: jean mariedonaldsonskye Ruelas on 12-31-2024 Neutrophils/100 WBC (Bld) 53.6 % 47-70 [facility] Platelet countOrdered By: Balbir sherry Ruelas on 12-31-2024 Platelets (Bld) [#/Vol] 232 10*3/uL 150-450 [facility] Potassium measurement (mass/ volume)Ordered By: Safia Ruelas on 12-31-2024 Potassium (Unsp spec) [Mass/Vol] 3.5 mmol/L 3.3-5.1 [facility] RBC Auto (Bld) [#/Vol]Ordere d By: Safia Cheoquyen on 12-31-2024 RBC (Bld) [#/Vol] 4.03 10*6/uL Low 4.2-5.4 [facility] Serum creatinine measurement (mass/volume)Ordered By: Safia Cheoquyen on 12-31-2024 Creatinine [Mass/Vol] 0.70 mg/dL 0.70-1.20 [facility] Serum glucose measurement (m ass/volume)Ordered By: Balbirjean mariejosé antonio Cheobonimelanie on 12-31-2024 Glucose [Mass/Vol] 142 mg/dL High 70-99 [facility] Serum or plasma calcium dayna urement (mass/volume)Ordered By: Safia Cheoquyen on 12-31-2024 Calcium [Mass/Vol] 8.4 mg/dL 7.6-11.0 [facility] Serum or plasma urea nitroge n measurement (mass/volume)Ordered By: Balbirjean mariejosé antonio Cheobonimelanie on 12-31-2024 Urea nitrogen [Mass/Vol] 10 mg/dL 4-19 [facility] Sodium levelOrdered By: Leonides chou Cheobonimelanie on 12-31-2024 Sodium [Moles/Vol] 139 mmol/L 133-145 [facility] White blood cell (WBC) count Ordered By: Safia Cheoquyen on 12-31-2024 WBC (Bld) [#/Vol] 6.9 10*3/uL 4.4-11.0 [facility] Absolute lymphocyte countOrd ered By: Safia Cheobonimelanie on 12-24-2024 Lymphocytes Auto (Unsp spec) [#/Vol] 2.54 10*3/uL 0.83-4.51 [facility] Anion gap in Serum or Plasma Ordered By: Safia Ruelas on 12-24-2024 Anion gap [Moles/Vol] 14 mmol/L 5-15 [facility] Automated lymphocyte count a s percentage of total leukocytesOrdered By: Safia Ruelas on 12-24-2024 Lymphocytes/100 WBC Auto (Unsp spec) 28.0 % 19-41 [facility] BUN/creatinine ratioOrdered By: Leonidesdonaldsonskye Ruelas on 12-24-2024 Urea nitrogen/Creatinine [Mass ratio] 18.4 mg/mg 10-20 [facility] Basophil percentageOrdered B y: Safia Ruelas on 12-24-2024 Basophils/100 WBC (Bld) 0.8 % 0-1 [facility] Carbon dioxide, total [Moles /volume] in Central venous bloodOrdered By: Leonidesdonaldsonskye Ruelas on 12-24-2024 CO2 [Moles/Vol] 22.1 mmol/L 21.0-32.0 [facility] Chloride assayOrdered By: Balbir Ruelas on 12-24-2024 Chloride [Moles/Vol] 101 mmol/L 98-108 [facility] Eosinophil percentageOrdered By: Safia Ruelas on 12-24-2024 Eosinophils/100 WBC (Bld) 2.6 % 0-5 [facility] Erythrocyte distribution wid th ratioOrdered By: Leonidesdonaldsonskye Ruelas on 12-24-2024 Erythrocyte distribution width (RBC) [Ratio] 14.4 % 11.6-14.6 [facility] Erythrocyte distribution wid th standard deviationOrdered By: Safia Ruelas on 12-24-2024 Erythrocyte distribution width (RBC) [Ratio] 48.8 fl High 35.1-43.9 [facility] Glomerular filtration rate ( GFR) estimation/1.73 sq m using serum, plasma, or whole bOrdered By: Safia Ruelas on 12-24-2024 GFR/1.73 sq M.predicted among non-blacks MDRD (S/P/Bld) [Vol rate/Area] 83 mL/min/{1.73_m2} >60 [facility] Hematocrit Auto (Bld) [Volum e fraction]Ordered By: Safia Griderbonimelanie on 12-24-2024 Hematocrit (Bld) [Volume fraction] 37.9 % 37-47 [facility] Hemoglobin measurementOrdere d By: Safia Ruelas on 12-24-2024 Hemoglobin (Bld) [Mass/Vol] 12.2 g/dL 12.0-15.0 [facility] Immature granulocytes/100 WB C Auto (Bld)Ordered By: Balbirjean mariejosé antonio Cheobonimelanie on 12-24-2024 Immature granulocytes/100 WBC (Bld) 0.400 % 0.0-0.9 [facility] MCV (mean corpuscular volume ) determinationOrdered By: Balbirsherry Griderbonimelanie on 12-24-2024 MCV (RBC) [Entitic vol] 92.2 fL 81-99 [facility] Mean corpuscular hemoglobin (MCH) determinationOrdered By: Balbirsherry Griderbonimelanie on 12-24-2024 MCH (RBC) [Entitic mass] 29.7 pg 27.0-32.0 [facility] Monocyte percentageOrdered B y: Safia Cheobonimelanie on 12-24-2024 Monocytes/100 WBC (Bld) 8.7 % 0-10 [facility] Neutrophil percentageOrdered By: Safia Ruelas on 12-24-2024 Neutrophils/100 WBC (Bld) 59.5 % 47-70 [facility] Platelet countOrdered By: Balbir powell Cheobonimelanie on 12-24-2024 Platelets (Bld) [#/Vol] 256 10*3/uL 150-450 [facility] Potassium measurement (mass/ volume)Ordered By: Balbirjean mariedesireeskye Griderbonimelanie on 12-24-2024 Potassium (Unsp spec) [Mass/Vol] 3.4 mmol/L 3.3-5.1 [facility] RBC Auto (Bld) [#/Vol]Ordere d By: Safia Cheobonimelanie on 12-24-2024 RBC (Bld) [#/Vol] 4.11 10*6/uL Low 4.2-5.4 [facility] Serum creatinine measurement (mass/volume)Ordered By: Balbirsherry Ruelas on 12-24-2024 Creatinine [Mass/Vol] 0.73 mg/dL 0.70-1.20 [facility] Serum glucose measurement (m ass/volume)Ordered By: Safia Ruelas on 12-24-2024 Glucose [Mass/Vol] 142 mg/dL High 70-99 [facility] Serum or plasma calcium dayna urement (mass/volume)Ordered By: Safia Ruelas on 12-24-2024 Calcium [Mass/Vol] 9.1 mg/dL 7.6-11.0 [facility] Serum or plasma urea nitroge n measurement (mass/volume)Ordered By: Safia Ruelas on 12-24-2024 Urea nitrogen [Mass/Vol] 13 mg/dL 4-19 [facility] Sodium levelOrdered By: Leonides josé antonio Jessenia on 12-24-2024 Sodium [Moles/Vol] 137 mmol/L 133-145 [facility] White blood cell (WBC) count Ordered By: Safia Ruelas on 12-24-2024 WBC (Bld) [#/Vol] 9.1 10*3/uL 4.4-11.0 [facility] Absolute lymphocyte countOrd ered By: Safia Ruelas on 12-17-2024 Lymphocytes Auto (Unsp spec) [#/Vol] 2.94 10*3/uL 0.83-4.51 [facility] Anion gap in Serum or Plasma Ordered By: Safia Ruelas on 12-17-2024 Anion gap [Moles/Vol] 15 mmol/L 5-15 [facility] Automated lymphocyte count a s percentage of total leukocytesOrdered By: Safia Ruelas on 12-17-2024 Lymphocytes/100 WBC Auto (Unsp spec) 30.5 % 19-41 [facility] BUN/creatinine ratioOrdered By: Safia Ruelas on 12-17-2024 Urea nitrogen/Creatinine [Mass ratio] 23.4 mg/mg High 10-20 [facility] Basophil percentageOrdered B y: Safia Ruelas on 12-17-2024 Basophils/100 WBC (Bld) 0.7 % 0-1 [facility] Carbon dioxide, total [Moles /volume] in Central venous bloodOrdered By: Safia Ruelas on 12-17-2024 CO2 [Moles/Vol] 22.1 mmol/L 21.0-32.0 [facility] Chloride assayOrdered By: Balbir Ruelas on 12-17-2024 Chloride [Moles/Vol] 102 mmol/L 98-108 [facility] Eosinophil percentageOrdered By: Safia Ruelas on 12-17-2024 Eosinophils/100 WBC (Bld) 2.3 % 0-5 [facility] Erythrocyte distribution wid th ratioOrdered By: sherry Ruelas on 12-17-2024 Erythrocyte distribution width (RBC) [Ratio] 14.1 % 11.6-14.6 [facility] Erythrocyte distribution wid th standard deviationOrdered By: jean mariedonaldsonskye Ruelas on 12-17-2024 Erythrocyte distribution width (RBC) [Ratio] 47.3 fl High 35.1-43.9 [facility] Glomerular filtration rate ( GFR) estimation/1.73 sq m using serum, plasma, or whole bOrdered By: Safia Ruelas on 12-17-2024 GFR/1.73 sq M.predicted among non-blacks MDRD (S/P/Bld) [Vol rate/Area] 77 mL/min/{1.73_m2} >60 [facility] Hematocrit Auto (Bld) [Volum e fraction]Ordered By: Safia Ruelas 12-17-2024 Hematocrit (Bld) [Volume fraction] 40.2 % 37-47 [facility] Hemoglobin measurementOrdere d By: Safia Ruelas on 12-17-2024 Hemoglobin (Bld) [Mass/Vol] 12.7 g/dL 12.0-15.0 [facility] Immature granulocytes/100 WB C Auto (Bld)Ordered By: Safia Ruelas 12-17-2024 Immature granulocytes/100 WBC (Bld) 0.400 % 0.0-0.9 [facility] MCV (mean corpuscular volume ) determinationOrdered By: Safia Ruelas 12-17-2024 MCV (RBC) [Entitic vol] 92.2 fL 81-99 [facility] Mean corpuscular hemoglobin (MCH) determinationOrdered By: Safia Ruelas on 12-17-2024 MCH (RBC) [Entitic mass] 29.1 pg 27.0-32.0 [facility] Monocyte percentageOrdered B y: Safia Ruelas on 12-17-2024 Monocytes/100 WBC (Bld) 8.6 % 0-10 [facility] Neutrophil percentageOrdered By: Safia Ruelas on 12-17-2024 Neutrophils/100 WBC (Bld) 57.5 % 47-70 [facility] Platelet countOrdered By: Balbir Ruelas on 12-17-2024 Platelets (Bld) [#/Vol] 287 10*3/uL 150-450 [facility] Potassium measurement (mass/ volume)Ordered By: Safia Ruelas on 12-17-2024 Potassium (Unsp spec) [Mass/Vol] 3.5 mmol/L 3.3-5.1 [facility] RBC Auto (Bld) [#/Vol]Ordere d By: Safia Ruelas on 12-17-2024 RBC (Bld) [#/Vol] 4.36 10*6/uL 4.2-5.4 [facility] Serum creatinine measurement (mass/volume)Ordered By: Safia Ruelas on 12-17-2024 Creatinine [Mass/Vol] 0.78 mg/dL 0.70-1.20 [facility] Serum glucose measurement (m ass/volume)Ordered By: Safia Ruelas on 12-17-2024 Glucose [Mass/Vol] 125 mg/dL High 70-99 [facility] Serum or plasma calcium dayna urement (mass/volume)Ordered By: Safia Ruelas on 12-17-2024 Calcium [Mass/Vol] 9.2 mg/dL 7.6-11.0 [facility] Serum or plasma urea nitroge n measurement (mass/volume)Ordered By: Safia Ruelas on 12-17-2024 Urea nitrogen [Mass/Vol] 18 mg/dL 4-19 [facility] Sodium levelOrdered By: Leonides Ruelas on 12-17-2024 Sodium [Moles/Vol] 139 mmol/L 133-145 [facility] White blood cell (WBC) count Ordered By: Safia Ruelas on 12-17-2024 WBC (Bld) [#/Vol] 9.6 10*3/uL 4.4-11.0 [facility] Absolute lymphocyte countOrd ered By: Balbirjean mariejosé antonio Ruelas on 12-10-2024 Lymphocytes Auto (Unsp spec) [#/Vol] 2.59 10*3/uL 0.83-4.51 [facility] Anion gap in Serum or Plasma Ordered By: Balbirjean mariejosé antonio Cheoquyen on 12-10-2024 Anion gap [Moles/Vol] 15 mmol/L 5-15 [facility] Automated lymphocyte count a s percentage of total leukocytesOrdered By: Balbirjean mariedesireeskye Griderbonimelanie on 12-10-2024 Lymphocytes/100 WBC Auto (Unsp spec) 30.2 % 19-41 [facility] BUN/creatinine ratioOrdered By: Leonidesjosé antonio Cheobonimelanie on 12-10-2024 Urea nitrogen/Creatinine [Mass ratio] 25.6 mg/mg High 10-20 [facility] Basophil percentageOrdered B y: Safia Ruelas on 12-10-2024 Basophils/100 WBC (Bld) 0.9 % 0-1 [facility] Carbon dioxide, total [Moles /volume] in Central venous bloodOrdered By: Balbirjean mariejosé antonio Cheobonimelanie on 12-10-2024 CO2 [Moles/Vol] 21.7 mmol/L 21.0-32.0 [facility] Chloride assayOrdered By: sherry Cheobonimelanie on 12-10-2024 Chloride [Moles/Vol] 101 mmol/L 98-108 [facility] Eosinophil percentageOrdered By: Balbirjean mariejosé antonio Cheobonimelanie on 12-10-2024 Eosinophils/100 WBC (Bld) 1.9 % 0-5 [facility] Erythrocyte distribution wid th ratioOrdered By: Balbirjean mariedesireeskye Griderbonimelanie on 12-10-2024 Erythrocyte distribution width (RBC) [Ratio] 13.7 % 11.6-14.6 [facility] Erythrocyte distribution wid th standard deviationOrdered By: Safia Ruelas on 12-10-2024 Erythrocyte distribution width (RBC) [Ratio] 46.8 fl High 35.1-43.9 [facility] Glomerular filtration rate ( GFR) estimation/1.73 sq m using serum, plasma, or whole bOrdered By: Safia Ruelas on 12-10-2024 GFR/1.73 sq M.predicted among non-blacks MDRD (S/P/Bld) [Vol rate/Area] 72 mL/min/{1.73_m2} >60 [facility] Hematocrit Auto (Bld) [Volum e fraction]Ordered By: [facility] on 12-10-2024 Hematocrit (Bld) [Volume fraction] 38.8 % 37-47 [facility] Hemoglobin measurementOrdere d By: Safia Ruelas on 12-10-2024 Hemoglobin (Bld) [Mass/Vol] 12.3 g/dL 12.0-15.0 [facility] Immature granulocytes/100 WB C Auto (Bld)Ordered By: Safia Ruelas on 12-10-2024 Immature granulocytes/100 WBC (Bld) 0.500 % 0.0-0.9 [facility] MCV (mean corpuscular volume ) determinationOrdered By: Safia Ruelas on 12-10-2024 MCV (RBC) [Entitic vol] 93.3 fL 81-99 [facility] Mean corpuscular hemoglobin (MCH) determinationOrdered By: jean mariedonaldsonskye Ruelas on 12-10-2024 MCH (RBC) [Entitic mass] 29.6 pg 27.0-32.0 [facility] Monocyte percentageOrdered B y: Safia Ruelas on 12-10-2024 Monocytes/100 WBC (Bld) 8.2 % 0-10 [facility] Neutrophil percentageOrdered By: jean mariedonaldsonskye Ruelas on 12-10-2024 Neutrophils/100 WBC (Bld) 58.3 % 47-70 [facility] Platelet countOrdered By: Balbir Ruelas on 12-10-2024 Platelets (Bld) [#/Vol] 247 10*3/uL 150-450 [facility] Potassium measurement (mass/ volume)Ordered By: Safia Ruelas on 12-10-2024 Potassium (Unsp spec) [Mass/Vol] 3.8 mmol/L 3.3-5.1 [facility] RBC Auto (Bld) [#/Vol]Ordere d By: Safia Ruelas on 12-10-2024 RBC (Bld) [#/Vol] 4.16 10*6/uL Low 4.2-5.4 [facility] Serum creatinine measurement (mass/volume)Ordered By: Safia Ruelas on 12-10-2024 Creatinine [Mass/Vol] 0.82 mg/dL 0.70-1.20 [facility] Serum glucose measurement (m ass/volume)Ordered By: Safia Ruelas on 12-10-2024 Glucose [Mass/Vol] 149 mg/dL High 70-99 [facility] Serum or plasma calcium dayna urement (mass/volume)Ordered By: Safia Ruelas on 12-10-2024 Calcium [Mass/Vol] 9.1 mg/dL 7.6-11.0 [facility] Serum or plasma urea nitroge n measurement (mass/volume)Ordered By: Safia Ruelas on 12-10-2024 Urea nitrogen [Mass/Vol] 21 mg/dL High 4-19 [facility] Sodium levelOrdered By: Leonides jiménezradha Jessenia on 12-10-2024 Sodium [Moles/Vol] 137 mmol/L 133-145 [facility] White blood cell (WBC) count Ordered By: Safia Ruelas on 12-10-2024 WBC (Bld) [#/Vol] 8.6 10*3/uL 4.4-11.0 [facility] Absolute lymphocyte countOrd ered By: Safia Ruelas on 12-03-2024 Lymphocytes Auto (Unsp spec) [#/Vol] 2.81 10*3/uL 0.83-4.51 [facility] Anion gap in Serum or Plasma Ordered By: Saifa Ruelas on 12-03-2024 Anion gap [Moles/Vol] 14 mmol/L 5-15 [facility] Automated lymphocyte count a s percentage of total leukocytesOrdered By: Safia Ruelas on 12-03-2024 Lymphocytes/100 WBC Auto (Unsp spec) 28.3 % 19-41 [facility] BUN/creatinine ratioOrdered By: Safia Ruelas on 12-03-2024 Urea nitrogen/Creatinine [Mass ratio] 28.4 mg/mg High 10-20 [facility] Basophil percentageOrdered B y: Safia Ruelas on 12-03-2024 Basophils/100 WBC (Bld) 0.6 % 0-1 [facility] Carbon dioxide, total [Moles /volume] in Central venous bloodOrdered By: Safia Ruelas on 12-03-2024 CO2 [Moles/Vol] 23.3 mmol/L 21.0-32.0 [facility] Chloride assayOrdered By: Balbir Ruelas on 12-03-2024 Chloride [Moles/Vol] 102 mmol/L 98-108 [facility] Eosinophil percentageOrdered By: Safia Ruelas on 12-03-2024 Eosinophils/100 WBC (Bld) 1.5 % 0-5 [facility] Erythrocyte distribution wid th ratioOrdered By: Safia Ruelas on 12-03-2024 Erythrocyte distribution width (RBC) [Ratio] 14.1 % 11.6-14.6 [facility] Erythrocyte distribution wid th standard deviationOrdered By: Safia Ruelas on 12-03-2024 Erythrocyte distribution width (RBC) [Ratio] 47.9 fl High 35.1-43.9 [facility] Glomerular filtration rate ( GFR) estimation/1.73 sq m using serum, plasma, or whole bOrdered By: Safia Ruelas on 12-03-2024 GFR/1.73 sq M.predicted among non-blacks MDRD (S/P/Bld) [Vol rate/Area] 65 mL/min/{1.73_m2} >60 [facility] Hematocrit Auto (Bld) [Volum e fraction]Ordered By: Safia Ruelas on 12-03-2024 Hematocrit (Bld) [Volume fraction] 40.0 % 37-47 [facility] Hemoglobin measurementOrdere d By: Safia Griderbonimelanie on 12-03-2024 Hemoglobin (Bld) [Mass/Vol] 12.9 g/dL 12.0-15.0 [facility] Immature granulocytes/100 WB C Auto (Bld)Ordered By: Safia Ruelas on 12-03-2024 Immature granulocytes/100 WBC (Bld) 0.300 % 0.0-0.9 [facility] MCV (mean corpuscular volume ) determinationOrdered By: Safia Ruelas on 12-03-2024 MCV (RBC) [Entitic vol] 91.3 fL 81-99 [facility] Mean corpuscular hemoglobin (MCH) determinationOrdered By: Safia Ruelas on 12-03-2024 MCH (RBC) [Entitic mass] 29.5 pg 27.0-32.0 [facility] Monocyte percentageOrdered B y: Safia Ruelas on 12-03-2024 Monocytes/100 WBC (Bld) 9.6 % 0-10 [facility] Neutrophil percentageOrdered By: Safia Griderbonimelanie on 12-03-2024 Neutrophils/100 WBC (Bld) 59.7 % 47-70 [facility] Platelet countOrdered By: Balbir sherry Cheobonimelanie on 12-03-2024 Platelets (Bld) [#/Vol] 280 10*3/uL 150-450 [facility] Potassium measurement (mass/ volume)Ordered By: Safia Ruelas on 12-03-2024 Potassium (Unsp spec) [Mass/Vol] 4.0 mmol/L 3.3-5.1 [facility] RBC Auto (Bld) [#/Vol]Ordere d By: Safia Ruelas on 12-03-2024 RBC (Bld) [#/Vol] 4.38 10*6/uL 4.2-5.4 [facility] Serum creatinine measurement (mass/volume)Ordered By: Safia Ruelas on 12-03-2024 Creatinine [Mass/Vol] 0.89 mg/dL 0.70-1.20 [facility] Serum glucose measurement (m ass/volume)Ordered By: Safia Ruelas on 12-03-2024 Glucose [Mass/Vol] 77 mg/dL 70-99 [facility] Serum or plasma calcium dayan urement (mass/volume)Ordered By: Safia Ruelas on 12-03-2024 Calcium [Mass/Vol] 9.6 mg/dL 7.6-11.0 [facility] Serum or plasma urea nitroge n measurement (mass/volume)Ordered By: Safia Ruelas on 12-03-2024 Urea nitrogen [Mass/Vol] 25 mg/dL High 4-19 [facility] Sodium levelOrdered By: Leonides Ruelas on 12-03-2024 Sodium [Moles/Vol] 139 mmol/L 133-145 [facility] TSH DL <= 0.005 mIU/L QnOrde red By: Safia Ruelas on 12-03-2024 TSH Qn 3.500 uIU/mL 0.300-4.200 [facility] White blood cell (WBC) count Ordered By: Safia Cheoquyen on 12-03-2024 WBC (Bld) [#/Vol] 9.9 10*3/uL 4.4-11.0 [facility] Absolute lymphocyte countOrd ered By: Safia Ruelas on 11-26-2024 Lymphocytes Auto (Unsp spec) [#/Vol] 2.99 10*3/uL 0.83-4.51 [facility] Absolute neutrophil countOrd ered By: Safia Ruelas on 11-26-2024 Neutrophils (Bld) [#/Vol] 4.2 10*3/uL 2.0-7.7 [facility] Anion gap in Serum or Plasma Ordered By: Safia Ruelas on 11-26-2024 Anion gap [Moles/Vol] 13 mmol/L 5-15 [facility] Automated lymphocyte count a s percentage of total leukocytesOrdered By: Safia Ruelas on 11-26-2024 Lymphocytes/100 WBC Auto (Unsp spec) 37.1 % 19-41 [facility] BUN/creatinine ratioOrdered By: Safia Cheoquyen 11-26-2024 Urea nitrogen/Creatinine [Mass ratio] 24.3 mg/mg High 10-20 [facility] Basophil percentageOrdered B y: Safia Ruelas on 11-26-2024 Basophils/100 WBC (Bld) 0.7 % 0-1 [facility] Carbon dioxide, total [Moles /volume] in Central venous bloodOrdered By: Safia Ruelas on 11-26-2024 CO2 [Moles/Vol] 27.1 mmol/L 21.0-32.0 [facility] Chloride assayOrdered By: Balbir Ruelas on 11-26-2024 Chloride [Moles/Vol] 101 mmol/L 98-108 [facility] Eosinophil percentageOrdered By: Safia Ruelas on 11-26-2024 Eosinophils/100 WBC (Bld) 1.9 % 0-5 [facility] Erythrocyte distribution wid th ratioOrdered By: jean mariedonaldsonskye Ruelas on 11-26-2024 Erythrocyte distribution width (RBC) [Ratio] 14.2 % 11.6-14.6 [facility] Erythrocyte distribution wid th standard deviationOrdered By: Safia Ruelas on 11-26-2024 Erythrocyte distribution width (RBC) [Ratio] 48.0 fl High 35.1-43.9 [facility] Glomerular filtration rate ( GFR) estimation/1.73 sq m using serum, plasma, or whole bOrdered By: Safia Ruelas on 11-26-2024 GFR/1.73 sq M.predicted among non-blacks MDRD (S/P/Bld) [Vol rate/Area] 63 mL/min/{1.73_m2} >60 [facility] Comment on above: mL/min/1.73m2 CKD-EP I Creatinine Equation (2020) Hematocrit Auto (Bld) [Volum e fraction]Ordered By: Safia Ruelas on 11-26-2024 Hematocrit (Bld) [Volume fraction] 42.7 % 37-47 [facility] Hemoglobin measurementOrdere d By: Safia Ruelas on 11-26-2024 Hemoglobin (Bld) [Mass/Vol] 13.6 g/dL 12.0-15.0 [facility] Immature granulocytes/100 WB C Auto (Bld)Ordered By: Safia Ruelas on 11-26-2024 Immature granulocytes/100 WBC (Bld) 0.500 % 0.0-0.9 [facility] Comment on above: IG% - Immature Granu locytes (promyelocytes, myelocytes and metamyelocytes) > 1% indicates that a LEFT SHIFT is Present. MCV (mean corpuscular volume ) determinationOrdered By: Safia Ruelas on 11-26-2024 MCV (RBC) [Entitic vol] 92.0 fL 81-99 [facility] Mean corpuscular hemoglobin (MCH) determinationOrdered By: [facility] on 11-26-2024 MCH (RBC) [Entitic mass] 29.3 pg 27.0-32.0 [facility] Mean corpuscular hemoglobin concentration (MCHC) determinationOrdered By: jean mariedonaldsonskye Ruelas on 11-26-2024 MCHC (RBC) [Mass/Vol] 31.9 g/dL Low 32-36 [facility] Mean platelet volume determi nationOrdered By: Safia Ruelas on 11-26-2024 Platelet mean volume (Bld) [Entitic vol] 11.5 fL 6.2-12.0 [facility] Monocyte percentageOrdered B y: Safia Ruelas on 11-26-2024 Monocytes/100 WBC (Bld) 7.7 % 0-10 [facility] Neutrophil percentageOrdered By: jean mariedonaldsonskye Ruelas on 11-26-2024 Neutrophils/100 WBC (Bld) 52.1 % 47-70 [facility] Nucleated red blood cell per centageOrdered By: Safia Ruelas on 11-26-2024 Nucleated RBC/100 WBC (Bld) [Ratio] 0 % 0-5 [facility] Platelet countOrdered By: Balbir randallskye Griderbonimelanie on 11-26-2024 Platelets (Bld) [#/Vol] 283 10*3/uL 150-450 [facility] Potassium measurement (mass/ volume)Ordered By: Safia Ruelas on 11-26-2024 Potassium (Unsp spec) [Mass/Vol] 3.8 mmol/L 3.3-5.1 [facility] RBC Auto (Bld) [#/Vol]Ordere d By: Safia Cheobonimelanie on 11-26-2024 RBC (Bld) [#/Vol] 4.64 10*6/uL 4.2-5.4 [facility] Serum creatinine measurement (mass/volume)Ordered By: Safia Ruelas on 11-26-2024 Creatinine [Mass/Vol] 0.92 mg/dL 0.70-1.20 [facility] Serum glucose measurement (m ass/volume)Ordered By: Safia Ruelas on 11-26-2024 Glucose [Mass/Vol] 97 mg/dL 70-99 [facility] Serum or plasma calcium dayna urement (mass/volume)Ordered By: Safia Ruelas on 11-26-2024 Calcium [Mass/Vol] 10.0 mg/dL 7.6-11.0 [facility] Serum or plasma urea nitroge n measurement (mass/volume)Ordered By: Safia Ruelas on 11-26-2024 Urea nitrogen [Mass/Vol] 22 mg/dL High 4-19 [facility] Sodium levelOrdered By: Leonides chou Cheobonimelanie on 11-26-2024 Sodium [Moles/Vol] 140 mmol/L 133-145 [facility] White blood cell (WBC) count Ordered By: Safia Ruelas on 11-26-2024 WBC (Bld) [#/Vol] 8.1 10*3/uL 4.4-11.0 [facility] Clostridium difficile detect ion by polymerase chain reactionOrdered By: Safia Ruelas on 11-25-2024 C. difficile DNA CHUCKY+probe Ql (Unsp spec) [facility] Absolute lymphocyte countOrd ered By: Safia Ruelas on 11-19-2024 Lymphocytes Auto (Unsp spec) [#/Vol] 2.71 10*3/uL 0.83-4.51 [facility] Absolute neutrophil countOrd ered By: Safia Ruelas on 11-19-2024 Neutrophils (Bld) [#/Vol] 5.2 10*3/uL 2.0-7.7 [facility] Anion gap in Serum or Plasma Ordered By: Safia Ruelas on 11-19-2024 Anion gap [Moles/Vol] 12 mmol/L 5-15 [facility] Automated lymphocyte count a s percentage of total leukocytesOrdered By: Safia Ruelas on 11-19-2024 Lymphocytes/100 WBC Auto (Unsp spec) 30.4 % 19-41 [facility] BUN/creatinine ratioOrdered By: Safia Ruelas on 11-19-2024 Urea nitrogen/Creatinine [Mass ratio] 25.0 mg/mg High 10-20 [facility] Basophil percentageOrdered B y: Safia Ruelas on 11-19-2024 Basophils/100 WBC (Bld) 0.6 % 0-1 [facility] Carbon dioxide, total [Moles /volume] in Central venous bloodOrdered By: Leonidesdonaldsonskye Ruelas on 11-19-2024 CO2 [Moles/Vol] 25.5 mmol/L 21.0-32.0 [facility] Chloride assayOrdered By: Balbir Ruelas on 11-19-2024 Chloride [Moles/Vol] 101 mmol/L 98-108 [facility] Eosinophil percentageOrdered By: sherry Ruelas on 11-19-2024 Eosinophils/100 WBC (Bld) 2.1 % 0-5 [facility] Erythrocyte distribution wid th ratioOrdered By: jean mariedonaldsonskye Ruelas on 11-19-2024 Erythrocyte distribution width (RBC) [Ratio] 13.9 % 11.6-14.6 [facility] Erythrocyte distribution wid th standard deviationOrdered By: Safia Ruelas on 11-19-2024 Erythrocyte distribution width (RBC) [Ratio] 46.6 fl High 35.1-43.9 [facility] Glomerular filtration rate ( GFR) estimation/1.73 sq m using serum, plasma, or whole bOrdered By: Safia Ruelas on 11-19-2024 GFR/1.73 sq M.predicted among non-blacks MDRD (S/P/Bld) [Vol rate/Area] 66 mL/min/{1.73_m2} >60 [facility] Comment on above: mL/min/1.73m2 CKD-EP I Creatinine Equation (2020) Hematocrit Auto (Bld) [Volum e fraction]Ordered By: Safia Ruelas on 11-19-2024 Hematocrit (Bld) [Volume fraction] 39.2 % 37-47 [facility] Hemoglobin measurementOrdere d By: Safia Ruelas on 11-19-2024 Hemoglobin (Bld) [Mass/Vol] 12.7 g/dL 12.0-15.0 [facility] Immature granulocytes/100 WB C Auto (Bld)Ordered By: Safia Ruelas on 11-19-2024 Immature granulocytes/100 WBC (Bld) 0.300 % 0.0-0.9 [facility] Comment on above: IG% - Immature Granu locytes (promyelocytes, myelocytes and metamyelocytes) > 1% indicates that a LEFT SHIFT is Present. MCV (mean corpuscular volume ) determinationOrdered By: Safia Ruelas on 11-19-2024 MCV (RBC) [Entitic vol] 91.4 fL 81-99 [facility] Mean corpuscular hemoglobin (MCH) determinationOrdered By: sherry Ruelas on 11-19-2024 MCH (RBC) [Entitic mass] 29.6 pg 27.0-32.0 [facility] Mean corpuscular hemoglobin concentration (MCHC) determinationOrdered By: Safia Ruelas on 11-19-2024 MCHC (RBC) [Mass/Vol] 32.4 g/dL 32-36 [facility] Mean platelet volume determi nationOrdered By: Safia Ruelas on 11-19-2024 Platelet mean volume (Bld) [Entitic vol] 11.5 fL 6.2-12.0 [facility] Monocyte percentageOrdered B y: Safia Ruelas on 11-19-2024 Monocytes/100 WBC (Bld) 7.8 % 0-10 [facility] Neutrophil percentageOrdered By: Safia Ruelas on 11-19-2024 Neutrophils/100 WBC (Bld) 58.8 % 47-70 [facility] Nucleated red blood cell per centageOrdered By: Safia Ruelas on 11-19-2024 Nucleated RBC/100 WBC (Bld) [Ratio] 0 % 0-5 [facility] Platelet countOrdered By: Balbir jean mariejosé antonio Ruelas on 11-19-2024 Platelets (Bld) [#/Vol] 300 10*3/uL 150-450 [facility] Potassium measurement (mass/ volume)Ordered By: Safia Ruelas on 11-19-2024 Potassium (Unsp spec) [Mass/Vol] 3.8 mmol/L 3.3-5.1 [facility] RBC Auto (Bld) [#/Vol]Ordere d By: Safia Ruelas on 11-19-2024 RBC (Bld) [#/Vol] 4.29 10*6/uL 4.2-5.4 [facility] Serum creatinine measurement (mass/volume)Ordered By: Safia Ruelas on 11-19-2024 Creatinine [Mass/Vol] 0.88 mg/dL 0.70-1.20 [facility] Serum glucose measurement (m ass/volume)Ordered By: Safia Ruelas on 11-19-2024 Glucose [Mass/Vol] 136 mg/dL High 70-99 [facility] Serum or plasma calcium dayna urement (mass/volume)Ordered By: Safia Ruelas on 11-19-2024 Calcium [Mass/Vol] 9.6 mg/dL 7.6-11.0 [facility] Serum or plasma urea nitroge n measurement (mass/volume)Ordered By: Safia Ruelas on 11-19-2024 Urea nitrogen [Mass/Vol] 22 mg/dL High 4-19 [facility] Sodium levelOrdered By: Leonides jiménezradha Jessenia on 11-19-2024 Sodium [Moles/Vol] 139 mmol/L 133-145 [facility] White blood cell (WBC) count Ordered By: Safia Ruelas on 11-19-2024 WBC (Bld) [#/Vol] 8.9 10*3/uL 4.4-11.0 [facility] Absolute lymphocyte countOrd ered By: Safia uRelas on 11-12-2024 Lymphocytes Auto (Unsp spec) [#/Vol] 2.49 10*3/uL 0.83-4.51 [facility] Absolute neutrophil countOrd ered By: Safia Ruelas on 11-12-2024 Neutrophils (Bld) [#/Vol] 4.2 10*3/uL 2.0-7.7 [facility] Anion gap in Serum or Plasma Ordered By: Safia Ruelas on 11-12-2024 Anion gap [Moles/Vol] 12 mmol/L 5-15 [facility] Automated lymphocyte count a s percentage of total leukocytesOrdered By: Safia Ruelas on 11-12-2024 Lymphocytes/100 WBC Auto (Unsp spec) 31.9 % 19-41 [facility] BUN/creatinine ratioOrdered By: Safia Ruelas on 11-12-2024 Urea nitrogen/Creatinine [Mass ratio] 28.1 mg/mg High 10-20 [facility] Basophil percentageOrdered B y: Safia Ruelas on 11-12-2024 Basophils/100 WBC (Bld) 0.6 % 0-1 [facility] Carbon dioxide, total [Moles /volume] in Central venous bloodOrdered By: Safia Ruelas on 11-12-2024 CO2 [Moles/Vol] 25.1 mmol/L 21.0-32.0 [facility] Chloride assayOrdered By: Balbir Ruelas on 11-12-2024 Chloride [Moles/Vol] 102 mmol/L 98-108 [facility] Eosinophil percentageOrdered By: Safia Ruelas on 11-12-2024 Eosinophils/100 WBC (Bld) 2.8 % 0-5 [facility] Erythrocyte distribution wid th ratioOrdered By: Saifa Ruelas on 11-12-2024 Erythrocyte distribution width (RBC) [Ratio] 13.8 % 11.6-14.6 [facility] Erythrocyte distribution wid th standard deviationOrdered By: Safia Ruelas on 11-12-2024 Erythrocyte distribution width (RBC) [Ratio] 46.7 fl High 35.1-43.9 [facility] Glomerular filtration rate ( GFR) estimation/1.73 sq m using serum, plasma, or whole bOrdered By: Safia Ruelas on 11-12-2024 GFR/1.73 sq M.predicted among non-blacks MDRD (S/P/Bld) [Vol rate/Area] 70 mL/min/{1.73_m2} >60 [facility] Comment on above: mL/min/1.73m2 CKD-EP I Creatinine Equation (2020) Hematocrit Auto (Bld) [Volum e fraction]Ordered By: Safia Ruelas on 11-12-2024 Hematocrit (Bld) [Volume fraction] 40.6 % 37-47 [facility] Hemoglobin measurementOrdere d By: sherry Ruelas on 11-12-2024 Hemoglobin (Bld) [Mass/Vol] 13.2 g/dL 12.0-15.0 [facility] Immature granulocytes/100 WB C Auto (Bld)Ordered By: jean mariedonaldsonskye Ruelas on 11-12-2024 Immature granulocytes/100 WBC (Bld) 0.400 % 0.0-0.9 [facility] Comment on above: IG% - Immature Granu locytes (promyelocytes, myelocytes and metamyelocytes) > 1% indicates that a LEFT SHIFT is Present. MCV (mean corpuscular volume ) determinationOrdered By: Safia Ruelas on 11-12-2024 MCV (RBC) [Entitic vol] 92.1 fL 81-99 [facility] Mean corpuscular hemoglobin (MCH) determinationOrdered By: Safia Ruelas on 11-12-2024 MCH (RBC) [Entitic mass] 29.9 pg 27.0-32.0 [facility] Mean corpuscular hemoglobin concentration (MCHC) determinationOrdered By: sherry Ruelas on 11-12-2024 MCHC (RBC) [Mass/Vol] 32.5 g/dL 32-36 [facility] Mean platelet volume determi nationOrdered By: Safia Ruelas on 11-12-2024 Platelet mean volume (Bld) [Entitic vol] 11.7 fL 6.2-12.0 [facility] Monocyte percentageOrdered B y: Safia Ruelas on 11-12-2024 Monocytes/100 WBC (Bld) 10.0 % 0-10 [facility] Neutrophil percentageOrdered By: Safia Ruelas on 11-12-2024 Neutrophils/100 WBC (Bld) 54.3 % 47-70 [facility] Nucleated red blood cell per centageOrdered By: Safia Ruelas on 11-12-2024 Nucleated RBC/100 WBC (Bld) [Ratio] 0 % 0-5 [facility] Platelet countOrdered By: Balbir Ruelas on 11-12-2024 Platelets (Bld) [#/Vol] 304 10*3/uL 150-450 [facility] Potassium measurement (mass/ volume)Ordered By: Safia Ruelas on 11-12-2024 Potassium (Unsp spec) [Mass/Vol] 3.9 mmol/L 3.3-5.1 [facility] RBC Auto (Bld) [#/Vol]Ordere d By: Safia Ruelas on 11-12-2024 RBC (Bld) [#/Vol] 4.41 10*6/uL 4.2-5.4 [facility] Serum creatinine measurement (mass/volume)Ordered By: Safia Ruelas on 11-12-2024 Creatinine [Mass/Vol] 0.84 mg/dL 0.70-1.20 [facility] Serum glucose measurement (m ass/volume)Ordered By: Safia Ruelas on 11-12-2024 Glucose [Mass/Vol] 112 mg/dL High 70-99 [facility] Serum or plasma calcium dayna urement (mass/volume)Ordered By: Safia Ruelas on 11-12-2024 Calcium [Mass/Vol] 9.7 mg/dL 7.6-11.0 [facility] Serum or plasma urea nitroge n measurement (mass/volume)Ordered By: Safia Ruelas on 11-12-2024 Urea nitrogen [Mass/Vol] 24 mg/dL High 4-19 [facility] Sodium levelOrdered By: Leonides Ruelas on 11-12-2024 Sodium [Moles/Vol] 139 mmol/L 133-145 [facility] White blood cell (WBC) count Ordered By: Safia Ruelas on 11-12-2024 WBC (Bld) [#/Vol] 7.8 10*3/uL 4.4-11.0 [facility] Absolute lymphocyte countOrd ered By: Balbirjean mariejosé antonio Cheobonimelanie on 11-05-2024 Lymphocytes Auto (Unsp spec) [#/Vol] 2.91 10*3/uL 0.83-4.51 [facility] Absolute neutrophil countOrd ered By: Leonidesdesireeskye Griderbonimelanie on 11-05-2024 Neutrophils (Bld) [#/Vol] 4.6 10*3/uL 2.0-7.7 [facility] Anion gap in Serum or Plasma Ordered By: Safia Ruelas on 11-05-2024 Anion gap [Moles/Vol] 13 mmol/L 5-15 [facility] Automated lymphocyte count a s percentage of total leukocytesOrdered By: Safia Ruelas on 11-05-2024 Lymphocytes/100 WBC Auto (Unsp spec) 33.7 % 19-41 [facility] BUN/creatinine ratioOrdered By: Safia Ruelas on 11-05-2024 Urea nitrogen/Creatinine [Mass ratio] 23.3 mg/mg High 10-20 [facility] Basophil percentageOrdered B y: Leonidesdesireeskye Griderbonimelanie on 11-05-2024 Basophils/100 WBC (Bld) 0.9 % 0-1 [facility] Carbon dioxide, total [Moles /volume] in Central venous bloodOrdered By: Safia Ruelas on 11-05-2024 CO2 [Moles/Vol] 24.2 mmol/L 21.0-32.0 [facility] Chloride assayOrdered By: Balbir jean mariejosé antonio Ruelas on 11-05-2024 Chloride [Moles/Vol] 102 mmol/L 98-108 [facility] Eosinophil percentageOrdered By: Safia Ruelas on 11-05-2024 Eosinophils/100 WBC (Bld) 2.7 % 0-5 [facility] Erythrocyte distribution wid th ratioOrdered By: Safia Ruelas on 11-05-2024 Erythrocyte distribution width (RBC) [Ratio] 13.9 % 11.6-14.6 [facility] Erythrocyte distribution wid th standard deviationOrdered By: Safia uRelas on 11-05-2024 Erythrocyte distribution width (RBC) [Ratio] 47.1 fl High 35.1-43.9 [facility] Glomerular filtration rate ( GFR) estimation/1.73 sq m using serum, plasma, or whole bOrdered By: Safia Ruelas on 11-05-2024 GFR/1.73 sq M.predicted among non-blacks MDRD (S/P/Bld) [Vol rate/Area] 62 mL/min/{1.73_m2} >60 [facility] Comment on above: mL/min/1.73m2 CKD-EP I Creatinine Equation (2020) Hematocrit Auto (Bld) [Volum e fraction]Ordered By: Safia Ruelas on 11-05-2024 Hematocrit (Bld) [Volume fraction] 40.7 % 37-47 [facility] Hemoglobin measurementOrdere d By: Safia Ruelas on 11-05-2024 Hemoglobin (Bld) [Mass/Vol] 12.9 g/dL 12.0-15.0 [facility] Immature granulocytes/100 WB C Auto (Bld)Ordered By: Safia Ruelas on 11-05-2024 Immature granulocytes/100 WBC (Bld) 0.500 % 0.0-0.9 [facility] Comment on above: IG% - Immature Granu locytes (promyelocytes, myelocytes and metamyelocytes) > 1% indicates that a LEFT SHIFT is Present. MCV (mean corpuscular volume ) determinationOrdered By: Safia Ruelas on 11-05-2024 MCV (RBC) [Entitic vol] 92.9 fL 81-99 [facility] Mean corpuscular hemoglobin (MCH) determinationOrdered By: Safia Ruelas 11-05-2024 MCH (RBC) [Entitic mass] 29.5 pg 27.0-32.0 [facility] Mean corpuscular hemoglobin concentration (MCHC) determinationOrdered By: Safia Ruelas 11-05-2024 MCHC (RBC) [Mass/Vol] 31.7 g/dL Low 32-36 [facility] Mean platelet volume determi nationOrdered By: Safia Ruelas on 11-05-2024 Platelet mean volume (Bld) [Entitic vol] 11.2 fL 6.2-12.0 [facility] Monocyte percentageOrdered B y: Safia Ruelas on 11-05-2024 Monocytes/100 WBC (Bld) 8.6 % 0-10 [facility] Neutrophil percentageOrdered By: Safia Ruelas on 11-05-2024 Neutrophils/100 WBC (Bld) 53.6 % 47-70 [facility] Nucleated red blood cell per centageOrdered By: Safia Ruelas on 11-05-2024 Nucleated RBC/100 WBC (Bld) [Ratio] 0 % 0-5 [facility] Platelet countOrdered By: Balbir Ruelas on 11-05-2024 Platelets (Bld) [#/Vol] 318 10*3/uL 150-450 [facility] Potassium measurement (mass/ volume)Ordered By: Safia Ruelas on 11-05-2024 Potassium (Unsp spec) [Mass/Vol] 4.0 mmol/L 3.3-5.1 [facility] RBC Auto (Bld) [#/Vol]Ordere d By: Safia Ruelas on 11-05-2024 RBC (Bld) [#/Vol] 4.38 10*6/uL 4.2-5.4 [facility] Serum creatinine measurement (mass/volume)Ordered By: Safia Ruelas on 11-05-2024 Creatinine [Mass/Vol] 0.93 mg/dL 0.70-1.20 [facility] Serum glucose measurement (m ass/volume)Ordered By: Safia Ruelas on 11-05-2024 Glucose [Mass/Vol] 70 mg/dL 70-99 [facility] Serum or plasma calcium dayna urement (mass/volume)Ordered By: Safia Ruelas on 11-05-2024 Calcium [Mass/Vol] 9.5 mg/dL 7.6-11.0 [facility] Serum or plasma urea nitroge n measurement (mass/volume)Ordered By: Safia Ruelas on 11-05-2024 Urea nitrogen [Mass/Vol] 22 mg/dL High 4-19 [facility] Sodium levelOrdered By: Leonides Ruelas on 11-05-2024 Sodium [Moles/Vol] 139 mmol/L 133-145 [facility] White blood cell (WBC) count Ordered By: Safia Ruelas on 11-05-2024 WBC (Bld) [#/Vol] 8.6 10*3/uL 4.4-11.0 [facility] Absolute lymphocyte countOrd ered By: Safia Ruelas on 10-29-2024 Lymphocytes Auto (Unsp spec) [#/Vol] 2.69 10*3/uL 0.83-4.51 [facility] Absolute neutrophil countOrd ered By: Safia Ruelas on 10-29-2024 Neutrophils (Bld) [#/Vol] 4.5 10*3/uL 2.0-7.7 [facility] Anion gap in Serum or Plasma Ordered By: Safia Ruelas on 10-29-2024 Anion gap [Moles/Vol] 11 mmol/L 5-15 [facility] Automated lymphocyte count a s percentage of total leukocytesOrdered By: Safia Ruelas on 10-29-2024 Lymphocytes/100 WBC Auto (Unsp spec) 32.6 % 19-41 [facility] BUN/creatinine ratioOrdered By: Safia Ruelas on 10-29-2024 Urea nitrogen/Creatinine [Mass ratio] 25.2 mg/mg High 10-20 [facility] Basophil percentageOrdered B y: Safia Ruelas on 10-29-2024 Basophils/100 WBC (Bld) 0.7 % 0-1 [facility] Carbon dioxide, total [Moles /volume] in Central venous bloodOrdered By: Safia Cheobonimelanie on 10-29-2024 CO2 [Moles/Vol] 25.7 mmol/L 21.0-32.0 [facility] Chloride assayOrdered By: Balbir randallskye Griderbonimelanie on 10-29-2024 Chloride [Moles/Vol] 102 mmol/L 98-108 [facility] Eosinophil percentageOrdered By: Safia Ruelas on 10-29-2024 Eosinophils/100 WBC (Bld) 2.1 % 0-5 [facility] Erythrocyte distribution wid th ratioOrdered By: Safia Ruelas on 10-29-2024 Erythrocyte distribution width (RBC) [Ratio] 13.6 % 11.6-14.6 [facility] Erythrocyte distribution wid th standard deviationOrdered By: Safia Ruelas on 10-29-2024 Erythrocyte distribution width (RBC) [Ratio] 46.6 fl High 35.1-43.9 [facility] Glomerular filtration rate ( GFR) estimation/1.73 sq m using serum, plasma, or whole bOrdered By: Leonidesdonaldsonskye Ruelas on 10-29-2024 GFR/1.73 sq M.predicted among non-blacks MDRD (S/P/Bld) [Vol rate/Area] 59 mL/min/{1.73_m2} Low >60 [facility] Comment on above: mL/min/1.73m2 CKD-EP I Creatinine Equation (2020) Hematocrit Auto (Bld) [Volum e fraction]Ordered By: Safia Ruelas on 10-29-2024 Hematocrit (Bld) [Volume fraction] 37.8 % 37-47 [facility] Hemoglobin measurementOrdere d By: Safia Ruelas on 10-29-2024 Hemoglobin (Bld) [Mass/Vol] 12.2 g/dL 12.0-15.0 [facility] Immature granulocytes/100 WB C Auto (Bld)Ordered By: Safia Ruelas 10-29-2024 Immature granulocytes/100 WBC (Bld) 0.400 % 0.0-0.9 [facility] Comment on above: IG% - Immature Granu locytes (promyelocytes, myelocytes and metamyelocytes) > 1% indicates that a LEFT SHIFT is Present. MCV (mean corpuscular volume ) determinationOrdered By: Safia Ruelas on 10-29-2024 MCV (RBC) [Entitic vol] 92.2 fL 81-99 [facility] Mean corpuscular hemoglobin (MCH) determinationOrdered By: Safia Ruelas 10-29-2024 MCH (RBC) [Entitic mass] 29.8 pg 27.0-32.0 [facility] Mean corpuscular hemoglobin concentration (MCHC) determinationOrdered By: Safia Ruelas on 10-29-2024 MCHC (RBC) [Mass/Vol] 32.3 g/dL 32-36 [facility] Mean platelet volume determi nationOrdered By: Safia Ruelas on 10-29-2024 Platelet mean volume (Bld) [Entitic vol] 11.1 fL 6.2-12.0 [facility] Monocyte percentageOrdered B y: Safia Ruelas on 10-29-2024 Monocytes/100 WBC (Bld) 9.9 % 0-10 [facility] Neutrophil percentageOrdered By: Safia Ruelas on 10-29-2024 Neutrophils/100 WBC (Bld) 54.3 % 47-70 [facility] Nucleated red blood cell per centageOrdered By: Safia Ruelas on 10-29-2024 Nucleated RBC/100 WBC (Bld) [Ratio] 0 % 0-5 [facility] Platelet countOrdered By: Balbir Ruelas on 10-29-2024 Platelets (Bld) [#/Vol] 283 10*3/uL 150-450 [facility] Potassium measurement (mass/ volume)Ordered By: Safia Ruelas on 10-29-2024 Potassium (Unsp spec) [Mass/Vol] 3.9 mmol/L 3.3-5.1 [facility] RBC Auto (Bld) [#/Vol]Ordere d By: Safia Ruelas on 10-29-2024 RBC (Bld) [#/Vol] 4.10 10*6/uL Low 4.2-5.4 [facility] Serum creatinine measurement (mass/volume)Ordered By: Safia Ruelas on 10-29-2024 Creatinine [Mass/Vol] 0.97 mg/dL 0.70-1.20 [facility] Serum glucose measurement (m ass/volume)Ordered By: Safia Ruelas on 10-29-2024 Glucose [Mass/Vol] 74 mg/dL 70-99 [facility] Serum or plasma calcium dayna urement (mass/volume)Ordered By: Safia Ruelas on 10-29-2024 Calcium [Mass/Vol] 9.5 mg/dL 7.6-11.0 [facility] Serum or plasma urea nitroge n measurement (mass/volume)Ordered By: Safia Ruelas on 10-29-2024 Urea nitrogen [Mass/Vol] 24 mg/dL High 4-19 [facility] Sodium levelOrdered By: Leonides Ruelas on 10-29-2024 Sodium [Moles/Vol] 138 mmol/L 133-145 [facility] White blood cell (WBC) count Ordered By: Safia Ruelas on 10-29-2024 WBC (Bld) [#/Vol] 8.3 10*3/uL 4.4-11.0 [facility] Bilirubin Test strip Ql (U)O rdered By: Safia Ruelas on 10-23-2024 Bilirubin Ql (U) Negative Negative [facility] Ketones Test strip Ql (U)Ord ered By: Safia Ruelas on 10-23-2024 Ketones Ql (U) Negative Negative [facility] Nitrite Test strip Ql (U)Ord ered By: Safia Ruelas on 10-23-2024 Nitrite Ql (U) Positive High Negative [facility] Protein Test strip Ql (U)Ord ered By: Safia Ruelas on 10-23-2024 Protein Ql (U) 15 mg/dl High Negative [facility] Urine clarityOrdered By: Augusto Ruelas on 10-23-2024 Clarity (U) Clear Clear [facility] Urine color determinationOrd ered By: Safia Ruelas on 10-23-2024 Color (U) Yellow Yellow [facility] Urine cultureOrdered By: Augusto Ruelas on 10-23-2024 Bacteria identified Cx Nom (U) Klebsiella pneumoniae sp pneum Abnormal [facility] Urine glucose detectionOrder ed By: Safia Ruelas on 10-23-2024 Glucose Ql (U) Normal mg/dl Normal [facility] Urine leukocyte esterase det ection by dipstickOrdered By: Safia Ruelas on 10-23-2024 Leukocyte esterase Test strip Ql (U) 500 /ul High Negative [facility] Urine pHOrdered By: Mazin Ruelas on 10-23-2024 pH (U) 6.0 [pH] 5.0 - 8.0 [facility] Urine specific gravity measu rementOrdered By: Safia Ruelas on 10-23-2024 Specific gravity (U) [Rel density] 1.010 1.002-1.030 [facility] Urine urobilinogen measureme ntOrdered By: Safia Ruelas on 10-23-2024 Urobilinogen Ql (U) Normal mg/dl Normal [facility] Absolute lymphocyte countOrd ered By: Safia Ruelas on 10-22-2024 Lymphocytes Auto (Unsp spec) [#/Vol] 3.07 10*3/uL 0.83-4.51 [facility] Absolute neutrophil countOrd ered By: Safia Ruelas on 10-22-2024 Neutrophils (Bld) [#/Vol] 4.6 10*3/uL 2.0-7.7 [facility] Anion gap in Serum or Plasma Ordered By: Safia Ruelas on 10-22-2024 Anion gap [Moles/Vol] 15 mmol/L 5-15 [facility] Automated lymphocyte count a s percentage of total leukocytesOrdered By: Safia Ruelas on 10-22-2024 Lymphocytes/100 WBC Auto (Unsp spec) 34.8 % 19-41 [facility] BUN/creatinine ratioOrdered By: Safia Ruelas on 10-22-2024 Urea nitrogen/Creatinine [Mass ratio] 28.6 mg/mg High 10-20 [facility] Basophil percentageOrdered B y: Safia Ruelas on 10-22-2024 Basophils/100 WBC (Bld) 0.9 % 0-1 [facility] Carbon dioxide, total [Moles /volume] in Central venous bloodOrdered By: Safia Ruelas on 10-22-2024 CO2 [Moles/Vol] 23.1 mmol/L 21.0-32.0 [facility] Chloride assayOrdered By: Balbir Ruelas on 10-22-2024 Chloride [Moles/Vol] 100 mmol/L 98-108 [facility] Eosinophil percentageOrdered By: Safia Ruelas on 10-22-2024 Eosinophils/100 WBC (Bld) 3.1 % 0-5 [facility] Erythrocyte distribution wid th ratioOrdered By: Safia Ruelas on 10-22-2024 Erythrocyte distribution width (RBC) [Ratio] 13.6 % 11.6-14.6 [facility] Erythrocyte distribution wid th standard deviationOrdered By: sherry Ruelas on 10-22-2024 Erythrocyte distribution width (RBC) [Ratio] 45.9 fl High 35.1-43.9 [facility] Glomerular filtration rate ( GFR) estimation/1.73 sq m using serum, plasma, or whole bOrdered By: sherry Ruelas on 10-22-2024 GFR/1.73 sq M.predicted among non-blacks MDRD (S/P/Bld) [Vol rate/Area] 60 mL/min/{1.73_m2} >60 [facility] Comment on above: mL/min/1.73m2 CKD-EP I Creatinine Equation (2020) Hematocrit Auto (Bld) [Volum e fraction]Ordered By: Safia Ruelas on 10-22-2024 Hematocrit (Bld) [Volume fraction] 40.7 % 37-47 [facility] Hemoglobin measurementOrdere d By: Safia Ruelas on 10-22-2024 Hemoglobin (Bld) [Mass/Vol] 13.1 g/dL 12.0-15.0 [facility] Immature granulocytes/100 WB C Auto (Bld)Ordered By: Safia Ruelas 10-22-2024 Immature granulocytes/100 WBC (Bld) 1.400 % High 0.0-0.9 [facility] Comment on above: IG% - Immature Granu locytes (promyelocytes, myelocytes and metamyelocytes) > 1% indicates that a LEFT SHIFT is Present. MCV (mean corpuscular volume ) determinationOrdered By: Safia Ruelas on 10-22-2024 MCV (RBC) [Entitic vol] 91.9 fL 81-99 [facility] Mean corpuscular hemoglobin (MCH) determinationOrdered By: Saifa Ruelas on 10-22-2024 MCH (RBC) [Entitic mass] 29.6 pg 27.0-32.0 [facility] Mean corpuscular hemoglobin concentration (MCHC) determinationOrdered By: Safia Ruelas on 10-22-2024 MCHC (RBC) [Mass/Vol] 32.2 g/dL 32-36 [facility] Mean platelet volume determi nationOrdered By: Safia Ruelas on 10-22-2024 Platelet mean volume (Bld) [Entitic vol] 11.2 fL 6.2-12.0 [facility] Monocyte percentageOrdered B y: Safia Ruelas on 10-22-2024 Monocytes/100 WBC (Bld) 7.7 % 0-10 [facility] Neutrophil percentageOrdered By: Safia Ruelas on 10-22-2024 Neutrophils/100 WBC (Bld) 52.1 % 47-70 [facility] Nucleated red blood cell per centageOrdered By: Safia Ruelas on 10-22-2024 Nucleated RBC/100 WBC (Bld) [Ratio] 0 % 0-5 [facility] Platelet countOrdered By: Balbir Ruelas on 10-22-2024 Platelets (Bld) [#/Vol] 334 10*3/uL 150-450 [facility] Potassium measurement (mass/ volume)Ordered By: Safia Ruelas on 10-22-2024 Potassium (Unsp spec) [Mass/Vol] 3.7 mmol/L 3.3-5.1 [facility] RBC Auto (Bld) [#/Vol]Ordere d By: Safia Ruelas on 10-22-2024 RBC (Bld) [#/Vol] 4.43 10*6/uL 4.2-5.4 [facility] Serum creatinine measurement (mass/volume)Ordered By: Safia Rueals on 10-22-2024 Creatinine [Mass/Vol] 0.96 mg/dL 0.70-1.20 [facility] Serum glucose measurement (m ass/volume)Ordered By: Safia Ruelas on 10-22-2024 Glucose [Mass/Vol] 106 mg/dL High 70-99 [facility] Serum or plasma calcium dayna urement (mass/volume)Ordered By: Safia Ruelas on 10-22-2024 Calcium [Mass/Vol] 9.4 mg/dL 7.6-11.0 [facility] Serum or plasma urea nitroge n measurement (mass/volume)Ordered By: Safia Ruelas on 10-22-2024 Urea nitrogen [Mass/Vol] 28 mg/dL High 4-19 [facility] Sodium levelOrdered By: Leonides jiménezradha Jessenia on 10-22-2024 Sodium [Moles/Vol] 138 mmol/L 133-145 [facility] TSH DL <= 0.005 mIU/L QnOrde red By: Safia Ruelas on 10-22-2024 TSH Qn 4.630 uIU/mL High 0.300-4.200 [facility] White blood cell (WBC) count Ordered By: Safia Ruelas on 10-22-2024 WBC (Bld) [#/Vol] 8.8 10*3/uL 4.4-11.0 [facility] Absolute lymphocyte countOrd ered By: Safia Ruelas on 10-15-2024 Lymphocytes Auto (Unsp spec) [#/Vol] 3.04 10*3/uL 0.83-4.51 [facility] Absolute neutrophil countOrd ered By: Safia Ruelas on 10-15-2024 Neutrophils (Bld) [#/Vol] 4.3 10*3/uL 2.0-7.7 [facility] Anion gap in Serum or Plasma Ordered By: Safia Ruelas on 10-15-2024 Anion gap [Moles/Vol] 12 mmol/L 5-15 [facility] Automated lymphocyte count a s percentage of total leukocytesOrdered By: Safia Ruelas on 10-15-2024 Lymphocytes/100 WBC Auto (Unsp spec) 36.7 % 19-41 [facility] BUN/creatinine ratioOrdered By: Safia Ruelas on 10-15-2024 Urea nitrogen/Creatinine [Mass ratio] 36.5 mg/mg High 10-20 [facility] Basophil percentageOrdered B y: Safia Ruelas on 10-15-2024 Basophils/100 WBC (Bld) 0.7 % 0-1 [facility] Carbon dioxide, total [Moles /volume] in Central venous bloodOrdered By: Safia Ruelas on 10-15-2024 CO2 [Moles/Vol] 25.2 mmol/L 21.0-32.0 [facility] Chloride assayOrdered By: Balbir jean mariejosé antonio Ruelas on 10-15-2024 Chloride [Moles/Vol] 100 mmol/L 98-108 [facility] Eosinophil percentageOrdered By: Safia Ruelas on 10-15-2024 Eosinophils/100 WBC (Bld) 2.4 % 0-5 [facility] Erythrocyte distribution wid th ratioOrdered By: Safia Ruelas on 10-15-2024 Erythrocyte distribution width (RBC) [Ratio] 13.5 % 11.6-14.6 [facility] Erythrocyte distribution wid th standard deviationOrdered By: jean mariedonaldsonksye Ruelas on 10-15-2024 Erythrocyte distribution width (RBC) [Ratio] 45.2 fl High 35.1-43.9 [facility] Glomerular filtration rate ( GFR) estimation/1.73 sq m using serum, plasma, or whole bOrdered By: Safia Ruelas on 10-15-2024 GFR/1.73 sq M.predicted among non-blacks MDRD (S/P/Bld) [Vol rate/Area] 71 mL/min/{1.73_m2} >60 [facility] Comment on above: mL/min/1.73m2 CKD-EP I Creatinine Equation (2020) Hematocrit Auto (Bld) [Volum e fraction]Ordered By: Safia Ruelas on 10-15-2024 Hematocrit (Bld) [Volume fraction] 40.3 % 37-47 [facility] Hemoglobin measurementOrdere d By: Safia Ruelas on 10-15-2024 Hemoglobin (Bld) [Mass/Vol] 13.3 g/dL 12.0-15.0 [facility] Immature granulocytes/100 WB C Auto (Bld)Ordered By: Safia Ruelas on 10-15-2024 Immature granulocytes/100 WBC (Bld) 0.400 % 0.0-0.9 [facility] Comment on above: IG% - Immature Granu locytes (promyelocytes, myelocytes and metamyelocytes) > 1% indicates that a LEFT SHIFT is Present. MCV (mean corpuscular volume ) determinationOrdered By: Safia Ruelas on 10-15-2024 MCV (RBC) [Entitic vol] 91.0 fL 81-99 [facility] Mean corpuscular hemoglobin (MCH) determinationOrdered By: Safia Ruelas on 10-15-2024 MCH (RBC) [Entitic mass] 30.0 pg 27.0-32.0 [facility] Mean corpuscular hemoglobin concentration (MCHC) determinationOrdered By: Safia Ruelas on 10-15-2024 MCHC (RBC) [Mass/Vol] 33.0 g/dL 32-36 [facility] Mean platelet volume determi nationOrdered By: Safia Ruelas on 10-15-2024 Platelet mean volume (Bld) [Entitic vol] 11.9 fL 6.2-12.0 [facility] Monocyte percentageOrdered B y: Safia Ruelas on 10-15-2024 Monocytes/100 WBC (Bld) 8.2 % 0-10 [facility] Neutrophil percentageOrdered By: Safia Ruelas on 10-15-2024 Neutrophils/100 WBC (Bld) 51.6 % 47-70 [facility] Nucleated red blood cell per centageOrdered By: sherry Ruelas on 10-15-2024 Nucleated RBC/100 WBC (Bld) [Ratio] 0 % 0-5 [facility] Platelet countOrdered By: Balbir Ruelas on 10-15-2024 Platelets (Bld) [#/Vol] 221 10*3/uL 150-450 [facility] Potassium measurement (mass/ volume)Ordered By: Safia Ruelas on 10-15-2024 Potassium (Unsp spec) [Mass/Vol] 3.8 mmol/L 3.3-5.1 [facility] RBC Auto (Bld) [#/Vol]Ordere d By: Safia Ruelas on 10-15-2024 RBC (Bld) [#/Vol] 4.43 10*6/uL 4.2-5.4 [facility] Serum creatinine measurement (mass/volume)Ordered By: Safia Ruelas on 10-15-2024 Creatinine [Mass/Vol] 0.83 mg/dL 0.70-1.20 [facility] Serum glucose measurement (m ass/volume)Ordered By: Safia Ruelas on 10-15-2024 Glucose [Mass/Vol] 68 mg/dL Low 70-99 [facility] Serum or plasma calcium dayna urement (mass/volume)Ordered By: Safia Ruelas on 10-15-2024 Calcium [Mass/Vol] 9.3 mg/dL 7.6-11.0 [facility] Serum or plasma urea nitroge n measurement (mass/volume)Ordered By: Safia Ruelas on 10-15-2024 Urea nitrogen [Mass/Vol] 30 mg/dL High 4-19 [facility] Sodium levelOrdered By: Leonides jiménezradha Jessenia on 10-15-2024 Sodium [Moles/Vol] 138 mmol/L 133-145 [facility] White blood cell (WBC) count Ordered By: Safia Ruelas on 10-15-2024 WBC (Bld) [#/Vol] 8.3 10*3/uL 4.4-11.0 [facility] Absolute lymphocyte countOrd ered By: Safia Ruelas on 10-08-2024 Lymphocytes Auto (Unsp spec) [#/Vol] 2.52 10*3/uL 0.83-4.51 [facility] Absolute neutrophil countOrd ered By: Safia Ruelas on 10-08-2024 Neutrophils (Bld) [#/Vol] 4.9 10*3/uL 2.0-7.7 [facility] Anion gap in Serum or Plasma Ordered By: Safia Ruelas on 10-08-2024 Anion gap [Moles/Vol] 14 mmol/L 5-15 [facility] Automated lymphocyte count a s percentage of total leukocytesOrdered By: Safia Ruelas on 10-08-2024 Lymphocytes/100 WBC Auto (Unsp spec) 29.4 % 19-41 [facility] BUN/creatinine ratioOrdered By: Safia Ruelas on 10-08-2024 Urea nitrogen/Creatinine [Mass ratio] 34.1 mg/mg High 10-20 [facility] Basophil percentageOrdered B y: Safia Griderbonimelanie on 10-08-2024 Basophils/100 WBC (Bld) 0.7 % 0-1 [facility] Carbon dioxide, total [Moles /volume] in Central venous bloodOrdered By: Safia Ruelas on 10-08-2024 CO2 [Moles/Vol] 24.0 mmol/L 21.0-32.0 [facility] Chloride assayOrdered By: Balbir jean mariejosé antonio Ruelas on 10-08-2024 Chloride [Moles/Vol] 100 mmol/L 98-108 [facility] Eosinophil percentageOrdered By: jean mariedonaldsonskye Griderbonimelanie on 10-08-2024 Eosinophils/100 WBC (Bld) 2.6 % 0-5 [facility] Erythrocyte distribution wid th ratioOrdered By: Safia Ruelas on 10-08-2024 Erythrocyte distribution width (RBC) [Ratio] 13.2 % 11.6-14.6 [facility] Erythrocyte distribution wid th standard deviationOrdered By: Safia Ruelas on 10-08-2024 Erythrocyte distribution width (RBC) [Ratio] 45.3 fl High 35.1-43.9 [facility] Glomerular filtration rate ( GFR) estimation/1.73 sq m using serum, plasma, or whole bOrdered By: Safia Ruelas on 10-08-2024 GFR/1.73 sq M.predicted among non-blacks MDRD (S/P/Bld) [Vol rate/Area] 65 mL/min/{1.73_m2} >60 [facility] Comment on above: mL/min/1.73m2 CKD-EP I Creatinine Equation (2020) Hematocrit Auto (Bld) [Volum e fraction]Ordered By: Safia Ruelas on 10-08-2024 Hematocrit (Bld) [Volume fraction] 41.7 % 37-47 [facility] Hemoglobin measurementOrdere d By: Safia Ruelas on 10-08-2024 Hemoglobin (Bld) [Mass/Vol] 13.3 g/dL 12.0-15.0 [facility] Immature granulocytes/100 WB C Auto (Bld)Ordered By: Safia Ruelas on 10-08-2024 Immature granulocytes/100 WBC (Bld) 0.400 % 0.0-0.9 [facility] Comment on above: IG% - Immature Granu locytes (promyelocytes, myelocytes and metamyelocytes) > 1% indicates that a LEFT SHIFT is Present. MCV (mean corpuscular volume ) determinationOrdered By: Safia Ruelas on 10-08-2024 MCV (RBC) [Entitic vol] 92.7 fL 81-99 [facility] Mean corpuscular hemoglobin (MCH) determinationOrdered By: sherry Ruelas on 10-08-2024 MCH (RBC) [Entitic mass] 29.6 pg 27.0-32.0 [facility] Mean corpuscular hemoglobin concentration (MCHC) determinationOrdered By: jean mariedonaldsonskye Ruelas on 10-08-2024 MCHC (RBC) [Mass/Vol] 31.9 g/dL Low 32-36 [facility] Mean platelet volume determi nationOrdered By: jean mariedonaldsonskye Ruelas on 10-08-2024 Platelet mean volume (Bld) [Entitic vol] 11.0 fL 6.2-12.0 [facility] Monocyte percentageOrdered B y: Safia Ruelas on 10-08-2024 Monocytes/100 WBC (Bld) 9.2 % 0-10 [facility] Neutrophil percentageOrdered By: [facility] Ruel[facility] on 10-08-2024 Neutrophils/100 WBC (Bld) 57.7 % 47-70 [facility] Nucleated red blood cell per centageOrdered By: jean mariedonaldsonskye Ruelas on 10-08-2024 Nucleated RBC/100 WBC (Bld) [Ratio] 0 % 0-5 [facility] Platelet countOrdered By: Balbir sherry Cheobonimelanie on 10-08-2024 Platelets (Bld) [#/Vol] 323 10*3/uL 150-450 [facility] Potassium measurement (mass/ volume)Ordered By: Balbirjean mariedesireeskye Griderbonimelanie on 10-08-2024 Potassium (Unsp spec) [Mass/Vol] 4.1 mmol/L 3.3-5.1 [facility] RBC Auto (Bld) [#/Vol]Ordere d By: Balbirjean mariedesireeskye Griderbonimelanie on 10-08-2024 RBC (Bld) [#/Vol] 4.50 10*6/uL 4.2-5.4 [facility] Serum creatinine measurement (mass/volume)Ordered By: Safia Ruelas on 10-08-2024 Creatinine [Mass/Vol] 0.90 mg/dL 0.70-1.20 [facility] Serum glucose measurement (m ass/volume)Ordered By: Safia Ruelas on 10-08-2024 Glucose [Mass/Vol] 82 mg/dL 70-99 [facility] Serum or plasma calcium dayna urement (mass/volume)Ordered By: Balbirjean mariedesireeskye Griderbonimelanie on 10-08-2024 Calcium [Mass/Vol] 9.6 mg/dL 7.6-11.0 [facility] Serum or plasma urea nitroge n measurement (mass/volume)Ordered By: Safia Griderbonimelanie on 10-08-2024 Urea nitrogen [Mass/Vol] 31 mg/dL High 4-19 [facility] Sodium levelOrdered By: Leonides chou Jessenia on 10-08-2024 Sodium [Moles/Vol] 138 mmol/L 133-145 [facility] White blood cell (WBC) count Ordered By: Balbirjean mariedesireeskye Griderbonimelanie on 10-08-2024 WBC (Bld) [#/Vol] 8.6 10*3/uL 4.4-11.0 [facility] 12 Lead EKG performed by [facility] [place] on 10-02-2024 12 Lead EKG performed by [place] [address] [place] [address] 12 Lead EKG performed by [facility] [place] 10/02/24920 MR#: [id number] Acct: [id number] Name: LINDSAY ACUNA Rep #: [id number] : 1945 78 From: Mj Benavides MD Attending Dr: Dr. Mj Benavides MD Status: DEP A MB Ordering Dr: Mj Benavides MD Date: 10/02/24 Location: [facility] [place] Sex: F C Admitted: BMS/12 Lead EKG performed by [facility] [place] ECG Report Interpretation ---Atrial fibrillation -irregular conduction -Old anterior infarct. ABNORMAL Electronically signed on 10/02/2024 at 16:06 by jM Benavides [employer] Version [id number] 10/02/24 1608 Date Mj Benavides MD CC: Dr. Kameron Caruso MD Date Dictated: 10/02/24920 Date Transcribed: 10/02/24920 Light Armored Vehicle Officer: [place] Signed Normal [facility] Cardiology Visit Reporton Cardiology Visit Report [facility] [address] [place] [address] OFFICE VISIT Date of Service: 10/02/24 MR#: [id number] Acct: [id number] Name: LINDSAY ACUNA Rep #: [id number] : 1945 Provider: Dr. Mj Benavides MD Age/Sex: 78/F Location: [facility] Status: Signed HPI HPI History of Present [...] now she is currently dom[place]. Her previous echocardiogram which was performed in [...] d/t W/C bound Intake Visit Reasons: AFIB ([facility]) Boiler Operator Required: No Accompanied by: Significant Other [...] normal, nasal (more content not included)... Normal [facility] Absolute lymphocyte countOrd ered By: Safia Ruelas on 10-01-2024 Lymphocytes Auto (Unsp spec) [#/Vol] 2.45 10*3/uL 0.83-4.51 [facility] Absolute neutrophil countOrd ered By: Safia Ruelas on 10-01-2024 Neutrophils (Bld) [#/Vol] 6.5 10*3/uL 2.0-7.7 [facility] Anion gap in Serum or Plasma Ordered By: Safia Ruelas on 10-01-2024 Anion gap [Moles/Vol] 12 mmol/L 5-15 [facility] Automated lymphocyte count a s percentage of total leukocytesOrdered By: Safia Ruelas on 10-01-2024 Lymphocytes/100 WBC Auto (Unsp spec) 23.1 % 19-41 [facility] BUN/creatinine ratioOrdered By: Safia Ruelas on 10-01-2024 Urea nitrogen/Creatinine [Mass ratio] 24.9 mg/mg High 10- [facility] Basophil percentageOrdered B y: Safia Ruelas on 10-01-2024 Basophils/100 WBC (Bld) 0.5 % 0-1 [facility] Carbon dioxide, total [Moles /volume] in Central venous bloodOrdered By: Safia Ruelas on 10-01-2024 CO2 [Moles/Vol] 24.4 mmol/L 21.0-32.0 [facility] Chloride assayOrdered By: Balbir Ruelas on 10-01-2024 Chloride [Moles/Vol] 99 mmol/L 98-108 [facility] Eosinophil percentageOrdered By: Safia Ruelas on 10-01-2024 Eosinophils/100 WBC (Bld) 2.0 % 0-5 [facility] Erythrocyte distribution wid th ratioOrdered By: Safia Ruelas on 10-01-2024 Erythrocyte distribution width (RBC) [Ratio] 13.5 % 11.6-14.6 [facility] Erythrocyte distribution wid th standard deviationOrdered By: Safia Ruelas on 10-01-2024 Erythrocyte distribution width (RBC) [Ratio] 46.2 fl High 35.1-43.9 [facility] Glomerular filtration rate ( GFR) estimation/1.73 sq m using serum, plasma, or whole bOrdered By: Safia Ruelas on 10-01-2024 GFR/1.73 sq M.predicted among non-blacks MDRD (S/P/Bld) [Vol rate/Area] 63 mL/min/{1.73_m2} >60 [facility] Comment on above: mL/min/1.73m2 CKD-EP I Creatinine Equation (2020) Hematocrit Auto (Bld) [Volum e fraction]Ordered By: Safia Ruelas on 10-01-2024 Hematocrit (Bld) [Volume fraction] 38.7 % 37-47 [facility] Hemoglobin measurementOrdere d By: Safia Ruelas on 10-01-2024 Hemoglobin (Bld) [Mass/Vol] 12.5 g/dL 12.0-15.0 [facility] Immature granulocytes/100 WB C Auto (Bld)Ordered By: Safia Ruelas on 10-01-2024 Immature granulocytes/100 WBC (Bld) 0.800 % 0.0-0.9 [facility] Comment on above: IG% - Immature Granu locytes (promyelocytes, myelocytes and metamyelocytes) > 1% indicates that a LEFT SHIFT is Present. MCV (mean corpuscular volume ) determinationOrdered By: Safia Ruelas on 10-01-2024 MCV (RBC) [Entitic vol] 93.3 fL 81-99 [facility] Mean corpuscular hemoglobin (MCH) determinationOrdered By: Safia Ruelas on 10-01-2024 MCH (RBC) [Entitic mass] 30.1 pg 27.0-32.0 [facility] Mean corpuscular hemoglobin concentration (MCHC) determinationOrdered By: Safia Ruelas on 10-01-2024 MCHC (RBC) [Mass/Vol] 32.3 g/dL 32-36 [facility] Mean platelet volume determi nationOrdered By: Safia Ruelas on 10-01-2024 Platelet mean volume (Bld) [Entitic vol] 11.7 fL 6.2-12.0 [facility] Monocyte percentageOrdered B y: Safia Ruelas on 10-01-2024 Monocytes/100 WBC (Bld) 12.7 % High 0-10 [facility] Neutrophil percentageOrdered By: Safia Ruelas on 10-01-2024 Neutrophils/100 WBC (Bld) 60.9 % 47-70 [facility] Nucleated red blood cell per centageOrdered By: Safia Griderbonimelanie on 10-01-2024 Nucleated RBC/100 WBC (Bld) [Ratio] 0 % 0-5 [facility] Platelet countOrdered By: Balbir randallskye Ruelas on 10-01-2024 Platelets (Bld) [#/Vol] 371 10*3/uL 150-450 [facility] Potassium measurement (mass/ volume)Ordered By: Safia Ruelas on 10-01-2024 Potassium (Unsp spec) [Mass/Vol] 4.2 mmol/L 3.3-5.1 [facility] RBC Auto (Bld) [#/Vol]Ordere d By: Leonidesdesireeskye Ruelas on 10-01-2024 RBC (Bld) [#/Vol] 4.15 10*6/uL Low 4.2-5.4 [facility] Serum creatinine measurement (mass/volume)Ordered By: Safia Ruelas on 10-01-2024 Creatinine [Mass/Vol] 0.93 mg/dL 0.70-1.20 [facility] Serum glucose measurement (m ass/volume)Ordered By: Safia Ruelas on 10-01-2024 Glucose [Mass/Vol] 93 mg/dL 70-99 [facility] Serum or plasma calcium dayna urement (mass/volume)Ordered By: Safia Ruelas on 10-01-2024 Calcium [Mass/Vol] 9.5 mg/dL 7.6-11.0 [facility] Serum or plasma urea nitroge n measurement (mass/volume)Ordered By: Safia Ruelas on 10-01-2024 Urea nitrogen [Mass/Vol] 23 mg/dL High 4-19 [facility] Sodium levelOrdered By: Leonides jiménezradha Jessenia on 10-01-2024 Sodium [Moles/Vol] 135 mmol/L 133-145 [facility] White blood cell (WBC) count Ordered By: Safia Ruelas on 10-01-2024 WBC (Bld) [#/Vol] 10.6 10*3/uL 4.4-11.0 [facility] Clostridium difficile detect ion by polymerase chain reactionOrdered By: Safia Ruelas on 09-29-2024 C. difficile DNA CHUCKY+probe Ql (Unsp spec) [facility] Absolute lymphocyte countOrd ered By: Safia Ruelas on 09-24-2024 Lymphocytes Auto (Unsp spec) [#/Vol] 2.72 10*3/uL 0.83-4.51 [facility] Absolute neutrophil countOrd ered By: Safia Ruelas on 09-24-2024 Neutrophils (Bld) [#/Vol] 6.3 10*3/uL 2.0-7.7 [facility] Anion gap in Serum or Plasma Ordered By: Safia Ruelas on 09-24-2024 Anion gap [Moles/Vol] 12 mmol/L 5-15 [facility] Automated lymphocyte count a s percentage of total leukocytesOrdered By: Safia Ruelas on 09-24-2024 Lymphocytes/100 WBC Auto (Unsp spec) 26.3 % 19-41 [facility] BUN/creatinine ratioOrdered By: Safia Ruelas on 09-24-2024 Urea nitrogen/Creatinine [Mass ratio] 36.4 mg/mg High 10-20 [facility] Basophil percentageOrdered B y: Safia Ruelas on 09-24-2024 Basophils/100 WBC (Bld) 0.7 % 0-1 [facility] Carbon dioxide, total [Moles /volume] in Central venous bloodOrdered By: Safia Ruelas on 09-24-2024 CO2 [Moles/Vol] 24.1 mmol/L 21.0-32.0 [facility] Chloride assayOrdered By: Balbir Ruelas on 09-24-2024 Chloride [Moles/Vol] 100 mmol/L 98-108 [facility] Eosinophil percentageOrdered By: Safia Ruelas on 09-24-2024 Eosinophils/100 WBC (Bld) 2.7 % 0-5 [facility] Erythrocyte distribution wid th ratioOrdered By: Safia Ruelas on 09-24-2024 Erythrocyte distribution width (RBC) [Ratio] 13.6 % 11.6-14.6 [facility] Erythrocyte distribution wid th standard deviationOrdered By: Safia Ruelas on 09-24-2024 Erythrocyte distribution width (RBC) [Ratio] 47.1 fl High 35.1-43.9 [facility] Glomerular filtration rate ( GFR) estimation/1.73 sq m using serum, plasma, or whole bOrdered By: Safia Ruelas on 09-24-2024 GFR/1.73 sq M.predicted among non-blacks MDRD (S/P/Bld) [Vol rate/Area] 62 mL/min/{1.73_m2} >60 [facility] Comment on above: mL/min/1.73m2 CKD-EP I Creatinine Equation (2020) Hematocrit Auto (Bld) [Volum e fraction]Ordered By: Safia Ruelas on 09-24-2024 Hematocrit (Bld) [Volume fraction] 41.2 % 37-47 [facility] Hemoglobin measurementOrdere d By: Safia Ruelas 09-24-2024 Hemoglobin (Bld) [Mass/Vol] 13.0 g/dL 12.0-15.0 [facility] Immature granulocytes/100 WB C Auto (Bld)Ordered By: Safia Ruelas 09-24-2024 Immature granulocytes/100 WBC (Bld) 1.000 % High 0.0-0.9 [facility] Comment on above: IG% - Immature Granu locytes (promyelocytes, myelocytes and metamyelocytes) > 1% indicates that a LEFT SHIFT is Present. MCV (mean corpuscular volume ) determinationOrdered By: Safia Ruelas on 09-24-2024 MCV (RBC) [Entitic vol] 94.3 fL 81-99 [facility] Mean corpuscular hemoglobin (MCH) determinationOrdered By: Safia Ruelas 09-24-2024 MCH (RBC) [Entitic mass] 29.7 pg 27.0-32.0 [facility] Mean corpuscular hemoglobin concentration (MCHC) determinationOrdered By: Safia Ruelas on 09-24-2024 MCHC (RBC) [Mass/Vol] 31.6 g/dL Low 32-36 [facility] Mean platelet volume determi nationOrdered By: Safia Ruelas on 09-24-2024 Platelet mean volume (Bld) [Entitic vol] 11.3 fL 6.2-12.0 [facility] Monocyte percentageOrdered B y: Safia Ruelas on 09-24-2024 Monocytes/100 WBC (Bld) 8.9 % 0-10 [facility] Neutrophil percentageOrdered By: Safia Ruelas on 09-24-2024 Neutrophils/100 WBC (Bld) 60.4 % 47-70 [facility] Nucleated red blood cell per centageOrdered By: Safia Ruelas on 09-24-2024 Nucleated RBC/100 WBC (Bld) [Ratio] 0 % 0-5 [facility] Platelet countOrdered By: Balbir Ruelas on 09-24-2024 Platelets (Bld) [#/Vol] 441 10*3/uL 150-450 [facility] Potassium measurement (mass/ volume)Ordered By: Safia Ruelas on 09-24-2024 Potassium (Unsp spec) [Mass/Vol] 4.3 mmol/L 3.3-5.1 [facility] RBC Auto (Bld) [#/Vol]Ordere d By: Safia Ruelas on 09-24-2024 RBC (Bld) [#/Vol] 4.37 10*6/uL 4.2-5.4 [facility] Serum creatinine measurement (mass/volume)Ordered By: Safia Ruelas on 09-24-2024 Creatinine [Mass/Vol] 0.93 mg/dL 0.70-1.20 [facility] Serum glucose measurement (m ass/volume)Ordered By: Safia Ruelas on 09-24-2024 Glucose [Mass/Vol] 48 mg/dL Low 70-99 [facility] Serum or plasma calcium dayna urement (mass/volume)Ordered By: Safia Ruelas on 09-24-2024 Calcium [Mass/Vol] 9.5 mg/dL 7.6-11.0 [facility] Serum or plasma urea nitroge n measurement (mass/volume)Ordered By: Bandarskye Griderbonimelanie on 09-24-2024 Urea nitrogen [Mass/Vol] 34 mg/dL High 4-19 [facility] Sodium levelOrdered By: Leonides chou Cheobonimelanie on 09-24-2024 Sodium [Moles/Vol] 136 mmol/L 133-145 [facility] White blood cell (WBC) count Ordered By: Balbirjean mariedesireeskye Griderbonimelanie on 09-24-2024 WBC (Bld) [#/Vol] 10.4 10*3/uL 4.4-11.0 [facility] Absolute lymphocyte countOrd ered By: Balbirjean mariedesireeskye Griderbonimelanie on 09-17-2024 Lymphocytes Auto (Unsp spec) [#/Vol] 2.52 10*3/uL 0.83-4.51 [facility] Absolute neutrophil countOrd ered By: Balbirsherry Grdierbonimelanie on 09-17-2024 Neutrophils (Bld) [#/Vol] 5.8 10*3/uL 2.0-7.7 [facility] Anion gap in Serum or Plasma Ordered By: Balbirsherry Griderbonimelanie on 09-17-2024 Anion gap [Moles/Vol] 12 mmol/L 5-15 [facility] Automated lymphocyte count a s percentage of total leukocytesOrdered By: Safia Ruelas on 09-17-2024 Lymphocytes/100 WBC Auto (Unsp spec) 26.3 % 19-41 [facility] BUN/creatinine ratioOrdered By: Balbirsherry Ruelas on 09-17-2024 Urea nitrogen/Creatinine [Mass ratio] 45.9 mg/mg High 10-20 [facility] Basophil percentageOrdered B y: Bandarskye Griderbonimelanie on 09-17-2024 Basophils/100 WBC (Bld) 0.6 % 0-1 [facility] Calculated very low density lipoprotein (VLDL) cholesterol measurementOrdered By: Safia Ruelas on 09-17-2024 Calculated very low density lipoprotein (VLDL) cholesterol measurement 22 mg/dL 5-40 [facility] Carbon dioxide, total [Moles /volume] in Central venous bloodOrdered By: Safia Ruelas on 09-17-2024 CO2 [Moles/Vol] 24.5 mmol/L 21.0-32.0 [facility] Chloride assayOrdered By: Balbir Ruelas on 09-17-2024 Chloride [Moles/Vol] 98 mmol/L 98-108 [facility] Eosinophil percentageOrdered By: Safia Ruelas on 09-17-2024 Eosinophils/100 WBC (Bld) 3.2 % 0-5 [facility] Erythrocyte distribution wid th ratioOrdered By: Safia Ruelas on 09-17-2024 Erythrocyte distribution width (RBC) [Ratio] 13.4 % 11.6-14.6 [facility] Erythrocyte distribution wid th standard deviationOrdered By: Safia Ruelas on 09-17-2024 Erythrocyte distribution width (RBC) [Ratio] 45.4 fl High 35.1-43.9 [facility] Glomerular filtration rate ( GFR) estimation/1.73 sq m using serum, plasma, or whole bOrdered By: Safia Ruelas on 09-17-2024 GFR/1.73 sq M.predicted among non-blacks MDRD (S/P/Bld) [Vol rate/Area] 69 mL/min/{1.73_m2} >60 [facility] Comment on above: mL/min/1.73m2 CKD-EP I Creatinine Equation (2020) Hematocrit Auto (Bld) [Volum e fraction]Ordered By: Safia Ruelas on 09-17-2024 Hematocrit (Bld) [Volume fraction] 38.8 % 37-47 [facility] Hemoglobin measurementOrdere d By: Safia Ruelas on 09-17-2024 Hemoglobin (Bld) [Mass/Vol] 12.6 g/dL 12.0-15.0 [facility] Immature granulocytes/100 WB C Auto (Bld)Ordered By: Safia Ruelas on 09-17-2024 Immature granulocytes/100 WBC (Bld) 0.700 % 0.0-0.9 [facility] Comment on above: IG% - Immature Granu locytes (promyelocytes, myelocytes and metamyelocytes) > 1% indicates that a LEFT SHIFT is Present. LDL calc ser/plasOrdered By: Safia Ruelas on 09-17-2024 Cholesterol in LDL [Mass/Vol] 120 mg/dL [facility] Comment on above: Fzvwjavesq=402-989 m g/dL & Higher Ezsk=607 mg/dL or greater MCV (mean corpuscular volume ) determinationOrdered By: Safia Ruelas on 09-17-2024 MCV (RBC) [Entitic vol] 91.7 fL 81-99 [facility] Mean corpuscular hemoglobin (MCH) determinationOrdered By: Safia Ruelas on 09-17-2024 MCH (RBC) [Entitic mass] 29.8 pg 27.0-32.0 [facility] Mean corpuscular hemoglobin concentration (MCHC) determinationOrdered By: Safia Ruelas on 09-17-2024 MCHC (RBC) [Mass/Vol] 32.5 g/dL 32-36 [facility] Mean platelet volume determi nationOrdered By: Safia Ruelas on 09-17-2024 Platelet mean volume (Bld) [Entitic vol] 11.4 fL 6.2-12.0 [facility] Monocyte percentageOrdered B y: Safia Ruelas on 09-17-2024 Monocytes/100 WBC (Bld) 8.5 % 0-10 [facility] Neutrophil percentageOrdered By: Safia Ruelas on 09-17-2024 Neutrophils/100 WBC (Bld) 60.7 % 47-70 [facility] Nucleated red blood cell per centageOrdered By: Safia Ruelas on 09-17-2024 Nucleated RBC/100 WBC (Bld) [Ratio] 0 % 0-5 [facility] Platelet countOrdered By: Balbir Ruelas on 09-17-2024 Platelets (Bld) [#/Vol] 311 10*3/uL 150-450 [facility] Potassium measurement (mass/ volume)Ordered By: Safia Ruelas on 09-17-2024 Potassium (Unsp spec) [Mass/Vol] 4.1 mmol/L 3.3-5.1 [facility] RBC Auto (Bld) [#/Vol]Ordere d By: Safia Ruelas on 09-17-2024 RBC (Bld) [#/Vol] 4.23 10*6/uL 4.2-5.4 [facility] Screening total cholesterol/ high density lipoprotein (HDL) cholesterol ratioOrdered By: Safia Ruelas on 09-17-2024 Cholesterol.total/Alta sterol in HDL [Mass ratio] 5.38 {ratio} [facility] Serum creatinine measurement (mass/volume)Ordered By: Safia Ruelas on 09-17-2024 Creatinine [Mass/Vol] 0.86 mg/dL 0.70-1.20 [facility] Serum glucose measurement (m ass/volume)Ordered By: Leonidesdonaldsonskye Ruelas on 09-17-2024 Glucose [Mass/Vol] 216 mg/dL High 70-99 [facility] Serum or plasma calcium dayna urement (mass/volume)Ordered By: Safia Ruelas on 09-17-2024 Calcium [Mass/Vol] 9.4 mg/dL 7.6-11.0 [facility] Serum or plasma cholesterol in HDL measurement (mass/volume)Ordered By: Safia Ruelas on 09-17-2024 Cholesterol in HDL [Mass/Vol] 33 mg/dL Low >40 [facility] Comment on above: National Cholesterol Education Program (NCEP) guidelines:<40 mg/dL: Low HDL-cholesterol (major risk factor for CHD)>= 60 mg/dL: High HDL-cholesterol (negative risk factor for CHD)HDL-cholesterol is affected by a number of factors, e.g. smoking, exercise, hormones, sex and age. Serum or plasma cholesterol measurement (mass/volume)Ordered By: Safia Ruelas on 09-17-2024 Cholesterol [Mass/Vol] 175 mg/dL <201 [facility] Comment on above: Cholesterol level, D esirable <200 mg/dLBorderline high cholesterol 200-239 mg/dLHigh cholesterol >=240 mg/dLRecommendations of the NCEP Adult Treatment Panel for the following risk-cutoff thresholds for the [place] population. Serum or plasma urea nitroge n measurement (mass/volume)Ordered By: Safia Ruelas on 09-17-2024 Urea nitrogen [Mass/Vol] 39 mg/dL High 4-19 [facility] Sodium levelOrdered By: Leonides josé antonio Jessenia on 09-17-2024 Sodium [Moles/Vol] 134 mmol/L 133-145 [facility] TSH DL <= 0.005 mIU/L QnOrde red By: Safia Ruelas on 09-17-2024 TSH Qn 3.500 uIU/mL 0.300-4.200 [facility] Triglycerides measurementOrd ered By: Safia Ruelas on 09-17-2024 Triglyceride [Mass/Vol] 111 mg/dL <199 [facility] Comment on above: The drugs N-Acetylcy steine and Metamizole may falsely depress this assay. Normal range: <150 mg/dLBorderline High: 150-199 mg/dLHigh: 200-499 mg/dLVery High: >500 mg/dL White blood cell (WBC) count Ordered By: Safia Ruelas on 09-17-2024 WBC (Bld) [#/Vol] 9.6 10*3/uL 4.4-11.0 [facility] Absolute lymphocyte countOrd ered By: Safia Ruelas on 09-10-2024 Lymphocytes Auto (Unsp spec) [#/Vol] 2.11 10*3/uL 0.83-4.51 [facility] Absolute neutrophil countOrd ered By: Safia Ruelas on 09-10-2024 Neutrophils (Bld) [#/Vol] 8.1 10*3/uL High 2.0-7.7 [facility] Anion gap in Serum or Plasma Ordered By: Safia Ruelas on 09-10-2024 Anion gap [Moles/Vol] 13 mmol/L 5-15 [facility] Automated lymphocyte count a s percentage of total leukocytesOrdered By: Safia Ruelas on 09-10-2024 Lymphocytes/100 WBC Auto (Unsp spec) 17.9 % Low 19-41 [facility] BUN/creatinine ratioOrdered By: Safia Ruelas on 09-10-2024 Urea nitrogen/Creatinine [Mass ratio] 29.1 mg/mg High 10-20 [facility] Basophil percentageOrdered B y: Safia Ruelas on 09-10-2024 Basophils/100 WBC (Bld) 0.3 % 0-1 [facility] Bilirubin, totalOrdered By: jean mariedonaldsonskye Ruelas on 09-10-2024 Bilirubin [Mass/Vol] 0.55 mg/dL 0.00-1.30 [facility] Carbon dioxide, total [Moles /volume] in Central venous bloodOrdered By: [facility] on 09-10-2024 CO2 [Moles/Vol] 23.6 mmol/L 21.0-32.0 [facility] Chloride assayOrdered By: Balbir sherry Ruelas on 09-10-2024 Chloride [Moles/Vol] 97 mmol/L Low 98-108 [facility] Eosinophil percentageOrdered By: [facility] R[facility] on 09-10-2024 Eosinophils/100 WBC (Bld) 0.5 % 0-5 [facility] Erythrocyte distribution wid th ratioOrdered By: [facility] R[facility] on 09-10-2024 Erythrocyte distribution width (RBC) [Ratio] 13.4 % 11.6-14.6 [facility] Erythrocyte distribution wid th standard deviationOrdered By: [facility] R[facility] on 09-10-2024 Erythrocyte distribution width (RBC) [Ratio] 45.2 fl High 35.1-43.9 [facility] Glomerular filtration rate ( GFR) estimation/1.73 sq m using serum, plasma, or whole bOrdered By: Safia Ruelas on 09-10-2024 GFR/1.73 sq M.predicted among non-blacks MDRD (S/P/Bld) [Vol rate/Area] 59 mL/min/{1.73_m2} Low >60 [facility] Comment on above: mL/min/1.73m2 CKD-EP I Creatinine Equation (2020) Hematocrit Auto (Bld) [Volum e fraction]Ordered By: [facility] R[facility] on 09-10-2024 Hematocrit (Bld) [Volume fraction] 41.8 % 37-47 [facility] Hemoglobin measurementOrdere d By: Safia Ruelas on 09-10-2024 Hemoglobin (Bld) [Mass/Vol] 13.4 g/dL 12.0-15.0 [facility] Immature granulocytes/100 WB C Auto (Bld)Ordered By: Safia Ruelas on 09-10-2024 Immature granulocytes/100 WBC (Bld) 0.800 % 0.0-0.9 [facility] Comment on above: IG% - Immature Granu locytes (promyelocytes, myelocytes and metamyelocytes) > 1% indicates that a LEFT SHIFT is Present. Laboratory - Chemistry and C hemistry - challengeOrdered By: Safia Ruelas on 09-10-2024 AST [Catalytic activity/Vol] 21 U/L <32 [facility] MCV (mean corpuscular volume ) determinationOrdered By: Safia Ruelas on 09-10-2024 MCV (RBC) [Entitic vol] 92.5 fL 81-99 [facility] Mean corpuscular hemoglobin (MCH) determinationOrdered By: Safia Ruelas on 09-10-2024 MCH (RBC) [Entitic mass] 29.6 pg 27.0-32.0 [facility] Mean corpuscular hemoglobin concentration (MCHC) determinationOrdered By: Safia Ruelas on 09-10-2024 MCHC (RBC) [Mass/Vol] 32.1 g/dL 32-36 [facility] Mean platelet volume determi nationOrdered By: Safia Ruelas on 09-10-2024 Platelet mean volume (Bld) [Entitic vol] 12.6 fL High 6.2-12.0 [facility] Monocyte percentageOrdered B y: Safia Ruelas on 09-10-2024 Monocytes/100 WBC (Bld) 12.3 % High 0-10 [facility] Neutrophil percentageOrdered By: Safia Ruelas on 09-10-2024 Neutrophils/100 WBC (Bld) 68.2 % 47-70 [facility] No Panel InformationOrdered By: Safia Ruelas on 09-10-2024 21 U/L <32 [facility] Nucleated red blood cell per centageOrdered By: Safia Ruelas on 09-10-2024 Nucleated RBC/100 WBC (Bld) [Ratio] 0 % 0-5 [facility] Platelet countOrdered By: Balbir Ruelas on 09-10-2024 Platelets (Bld) [#/Vol] 190 10*3/uL 150-450 [facility] Potassium measurement (mass/ volume)Ordered By: Safia Ruelas on 09-10-2024 Potassium (Unsp spec) [Mass/Vol] 4.3 mmol/L 3.3-5.1 [facility] RBC Auto (Bld) [#/Vol]Ordere d By: Safia Ruelas on 09-10-2024 RBC (Bld) [#/Vol] 4.52 10*6/uL 4.2-5.4 [facility] Serum creatinine measurement (mass/volume)Ordered By: Safia Ruelas on 09-10-2024 Creatinine [Mass/Vol] 0.98 mg/dL 0.70-1.20 [facility] Serum globulin measurementOr dered By: Safia Ruelas on 09-10-2024 Globulin (S) [Mass/Vol] 3.3 g/dL 2.2-4.2 [facility] Serum glucose measurement (m ass/volume)Ordered By: Safia Ruelas on 09-10-2024 Glucose [Mass/Vol] 181 mg/dL High 70-99 [facility] Serum or plasma alanine raymundo otransferase (ALT) measurementOrdered By: Safia Ruelas on 09-10-2024 ALT [Catalytic activity/Vol] 26 U/L <35 [facility] Serum or plasma albumin dayna urement (mass/volume)Ordered By: Safia Ruelas 09-10-2024 Albumin [Mass/Vol] 3.4 g/dL 3.4-4.8 [facility] Serum or plasma albumin/glob ulin mass ratioOrdered By: Safia Ruelas 09-10-2024 Albumin/Globulin [Mass ratio] 1.0 {ratio} 0.9-2.4 [facility] Serum or plasma alkaline hannah sphatase measurementOrdered By: Safia Ruelas on 09-10-2024 ALP [Catalytic activity/Vol] 114 U/L High 35-104 [facility] Serum or plasma calcium dayna urement (mass/volume)Ordered By: Safia Ruelas on 09-10-2024 Calcium [Mass/Vol] 9.3 mg/dL 7.6-11.0 [facility] Serum or plasma urea nitroge n measurement (mass/volume)Ordered By: Safia Ruelas on 09-10-2024 Urea nitrogen [Mass/Vol] 29 mg/dL High 4-19 [facility] Sodium levelOrdered By: Leonides Ruelas on 09-10-2024 Sodium [Moles/Vol] 133 mmol/L 133-145 [facility] Total proteinOrdered By: uAgusto Ruelas on 09-10-2024 Protein [Mass/Vol] 6.7 g/dL 5.9-8.4 [facility] White blood cell (WBC) count Ordered By: Safia Ruelas on 09-10-2024 WBC (Bld) [#/Vol] 11.8 10*3/uL High 4.4-11.0 [facility] LABORATORYOrdered By: Abigail Smith on 09-09-2024 Glucose [Mass/Vol] 212 mg/dL High 82 - 115 mg/dL [facility] Work Phone: Glucose [Mass/Vol] 226 mg/dL High 82 - 115 mg/dL [facility] Work Phone: LABORATORYOrdered By: Zoila Zarco on 09-08-2024 Glucose [Mass/Vol] 149 mg/dL High 82 - 115 mg/dL [facility] Work Phone: LABORATORYOrdered By: Rob Palmer on 09-08-2024 Blood Glucose Testing Reason Routine (09/08/24 6:16 PM) [facility] Work Phone: Blood Glucose Testing Reason Routine (09/08/24 11:58 AM) [facility] Work Phone: LABORATORYOrdered By: Rob Palmer on 09-07-2024 Blood Glucose Testing Reason Routine (09/07/24 4:46 PM) [facility] Work Phone: .Auto Diffon 09-03-2024 Basophil, Absolute 0.1 10 3/mcL Normal 0.0-0.3 [facility] Comment on above: Performed By: #### A DIFF, CBC, ANEU, GFR, BMP #### [address] [address] Basophils/100 WBC (Bld) 1.0 % Normal 0.0-2.5 [facility] Comment on above: Performed By: #### A DIFF, CBC, ANEU, GFR, BMP #### [address] [address] Eosinophil, Absolute 0.2 10 3/mcL Normal 0.0-0.7 [facility] Comment on above: Performed By: #### A DIFF, CBC, ANEU, GFR, BMP #### [address] [address] Eosinophils/100 WBC (Bld) 3.2 % Normal 0.0-6.[address] [facility] Comment on above: Performed By: #### A DIFF, CBC, ANEU, GFR, BMP #### [address] [address] Lymphocyte, Absolute 2.0 10 3/mcL Normal 0.9-4.3 [facility] Comment on above: Performed By: #### A DIFF, CBC, ANEU, GFR, BMP #### [address] [address] Lymphocytes/100 WBC (Bld) 26.6 % Normal 20.0-40.[address] [facility] Comment on above: Performed By: #### A DIFF, CBC, ANEU, GFR, BMP #### [address] [address] Monocyte, Absolute 0.7 10 3/mcL Normal 0.1-1.4 [facility] Comment on above: Performed By: #### A DIFF, CBC, ANEU, GFR, BMP #### [address] [address] Monocytes/100 WBC (Bld) 9.7 % Normal 2.0-13.0 [facility] Comment on above: Performed By: #### A DIFF, CBC, ANEU, GFR, BMP #### [address] [address] Neutrophils/100 WBC (Bld) 59.5 % Normal 50.0-75.[address] [facility] Comment on above: Performed By: #### A DIFF, CBC, ANEU, GFR, BMP #### [address] [address] .GFRon 09-03-2024 Estimated Glomerular Filtration Rate 57 ml/min/1.73sqm Normal [facility] [...] A DIFF, CBC, ANEU, GFR, BMP #### [address] [address] .NEUABSon 09-03-2024 Neutrophil, Absolute 4.5 10 3/mcL Normal 2.3-8.1 [facility] Comment on above: Performed By: #### A DIFF, CBC, ANEU, GFR, BMP #### [address] [address] B12on 09-03-2024 Cobalamin (Vitamin B12) [Mass/Vol] 834 pg/mL Normal 211-[address] [facility] Comment on above: Performed By: #### A DIFF, CBC, ANEU, GFR, BMP #### [address] [address] CBCon 09-03-2024 Erythrocyte distribution width (RBC) [Ratio] 14.7 % Normal 11.5-15.[address] [facility] Comment on above: Performed By: #### A DIFF, CBC, ANEU, GFR, BMP #### [address] [address] Hematocrit (Bld) [Volume fraction] 39.7 % Normal 34.0-46.[address] [facility] Comment on above: Performed By: #### A DIFF, CBC, ANEU, GFR, BMP #### [place] [id number] Hgb 13.2 G/dL Normal 12.0-16.[address] [facility] Comment on above: Performed By: #### A DIFF, CBC, ANEU, GFR, BMP #### [address] [address] MCH (RBC) [Entitic mass] 30.6 pg Normal 27.0-33.[address] [facility] Comment on above: Performed By: #### A DIFF, CBC, ANEU, GFR, BMP #### [place] [id number] MCHC 33.3 G/dL Normal 32.0-36.[address] [facility] Comment on above: Performed By: #### A DIFF, CBC, ANEU, GFR, BMP #### [address] [address] MCV (RBC) [Entitic vol] 91.9 fL Normal 80.0-99.0 [facility] Comment on above: Performed By: #### A DIFF, CBC, ANEU, GFR, BMP #### [place] [id number] Platelet 228 10 3/mcL Normal 150-[address] [facility] Comment on above: Performed By: #### A DIFF, CBC, ANEU, GFR, BMP #### [place] [id number] Platelet mean volume (Bld) [Entitic vol] 10.1 fL Normal 6.6-10.[address] [facility] Comment on above: Performed By: #### A DIFF, CBC, ANEU, GFR, BMP #### [address] [address] RBC 4.32 10 6/mcL Normal 4.10-5.[address] [facility] Comment on above: Performed By: #### A DIFF, CBC, ANEU, GFR, BMP #### [address] [address] WBC 7.6 10 3/mcL Normal 4.5-10.[address] [facility] Comment on above: Performed By: #### A DIFF, CBC, ANEU, GFR, BMP #### [address] [address] CMPon 09-03-2024 Albumin Level 3.0 G/dL Low 3.2-4.[address] [facility] Comment on above: Performed By: #### A DIFF, CBC, ANEU, GFR, BMP #### [place] [address] Albumin/Globulin [Mass ratio] 0.9 {ratio} Normal 0.9-1.[address] [facility] Comment on above: Performed By: #### A DIFF, CBC, ANEU, GFR, BMP #### [address] [address] ALP [Catalytic activity/Vol] 115 U/L Normal 38-[address] [facility] Comment on above: Performed By: #### A DIFF, CBC, ANEU, GFR, BMP #### [place] [address] ALT [Catalytic activity/Vol] 37 U/L Normal 10-[address] [facility] Comment on above: Performed By: #### A DIFF, CBC, ANEU, GFR, BMP #### [address] [address] AST [Catalytic activity/Vol] 31 U/L Normal 8-[address] [facility] Comment on above: Performed By: #### A DIFF, CBC, ANEU, GFR, BMP #### [place] [address] Bili Total 0.50 mg/dL Normal 0.20-1.[address] [facility] Comment on above: Result Comment: Use of this assay is not recommended for patients undergoing treatment with eltrombopag due to the potential for falsely elevated results. Performed By: #### A DIFF, CBC, ANEU, GFR, BMP #### [place] [address] BUN/Creatinine Ratio 29.7 ratio High 10.0-22.0 [facility] Comment on above: Performed By: #### A DIFF, CBC, ANEU, GFR, BMP #### [place] [id number] Calcium [Mass/Vol] 9.6 mg/dL Normal 8.7-10.4 [facility] Comment on above: Performed By: #### A DIFF, CBC, ANEU, GFR, BMP #### [place] [address] Chloride [Moles/Vol] 101 mmol/L Normal 98-110 [facility] Comment on above: Performed By: #### A DIFF, CBC, ANEU, GFR, BMP #### [place] [address] CO2 [Moles/Vol] 27 mmol/L Normal 22-[address] [facility] Comment on above: Performed By: #### A DIFF, CBC, ANEU, GFR, BMP #### [place] [address] Creatinine [Mass/Vol] 1.01 mg/dL Normal 0.50-1.20 [facility] Comment on above: Result Comment: Test ing performed on Yatedo analyzer using enzymatic creatinine methodology. Performed By: #### A DIFF, CBC, ANEU, GFR, BMP #### [place] [address] Electrolyte Balance 10.0 mEq/L Normal 4.0-15.0 [facility] Comment on above: Performed By: #### A DIFF, CBC, ANEU, GFR, BMP #### [place] [address] Globulin 3.4 G/dL Normal 1.5-3.[address] [facility] Comment on above: Performed By: #### A DIFF, CBC, ANEU, GFR, BMP #### [place] [address] Glucose [Mass/Vol] 187 mg/dL High 82-115 [facility] Comment on above: Performed By: #### A DIFF, CBC, ANEU, GFR, BMP #### [address] [address] Potassium [Moles/Vol] 4.6 mmol/L Normal 3.5-5.0 [facility] Comment on above: Performed By: #### A DIFF, CBC, ANEU, GFR, BMP #### [place] [id number] [place] [address] Sodium [Moles/Vol] 138 mmol/L Normal 136-145 [facility] Comment on above: Performed By: #### A DIFF, CBC, ANEU, GFR, BMP #### [address] [address] Total Protein 6.4 G/dL Normal 5.7-8.[address] [facility] Comment on above: Performed By: #### A DIFF, CBC, ANEU, GFR, BMP #### [address] [address] Urea nitrogen [Mass/Vol] 30.0 mg/dL High 8.0-22.[address] [facility] Comment on above: Performed By: #### A DIFF, CBC, ANEU, GFR, BMP #### [address] [address] LABORATORYOrdered By: Ann Carrillo on 09-03-2024 Glucose [Mass/Vol] 270 mg/dL [facility] Work Phone: LABORATORYOrdered By: SYSTEM [...] above: Interpretive Data: T esting performed on Yatedo analyzer using enzymatic creatinine methodology. Electrolyte Balance [...] TSHon 09-03-2024 TSH 3.920 mIU/mL Normal 0.550-4.[address] [facility] Comment on above: Performed By: #### A DIFF, CBC, ANEU, GFR, BMP #### [place] [address] [address] HEAD OR BRAIN W/O CONTRAS Ton [...] 09/02/2024 3:10:44 PM Ordering Provider: SILVINO Anderson [facility] [place] LINDSAY ACUNA ([id number]) 1945 F Date Time Provider Department 08/30/24 KAMERON CARUSO During your visit today, we recorded the following information about you: Jaiden Paulino, RN 08/30/2024 9:11 AM Signed Marya- [facility] reports patient was in [facility] with dx: stroke, and transferred to [facility]. Pt will be discharged from [facility] on 09/07/24 to home with [facility] SN PT OT [facility]. Asking if pcp agreeable to follow for C. Please phone Marya with verbal: [phone] Mj Glover APRN.GARRETT 08/30/2024 9:19 AM Signed Please let know that Dr. Caruso's team will follow orders. Okay to proceed. Mj Glover APRN.Fouzia Reynoso LPN 08/30/2024 10:09 AM Signed Marya with [facility] notified. Allergies As of Date: 08/30/2024 Noted Allergy Reaction BENZOCAINE 07/08/2005 2 - Rash COCAINE 05/28/2008 Comments: Inverted T PERFUMES 07/08/2005 12 - Shortness of Breath Comments: coughes and chokes SULFA (SULFONAMIDE ANTIBIOTICS) 07/08/2005 5 - Intolerance Date Reviewed: 06/26/2024 Reviewed by: Bret Arambula LPN - Fully Assessed Reason for Visit: [facility] requesting verbal agree to follow [Other] Prescriptions [...] daily with breakfast. - blood sugar diagnostic ([employer]ov[employer] Surgical TechnologiesTOUCH ULTRA TEST) test strip Test Blood Sugar one times daily Dx: E11.29 Insulin: No - lancets ([employer] Surgical TechnologiesTOUCH DELICA PLUS LANCET) 30 gauge Test blood [...] Status:Closed by FOUZIA MILLER on 08/30/24 Normal [facility] .Auto Diffon 08-26-2024 Basophil, Absolute 0.1 10 3/mcL Normal 0.0-0.3 [facility] Comment on above: Performed By: #### A DIFF, CBC, ANEU, GFR, BMP #### [address] [address] Basophils/100 WBC (Bld) 1.0 % Normal 0.0-2.5 [facility] Comment on above: Performed By: #### A DIFF, CBC, ANEU, GFR, BMP #### [address] [address] Eosinophil, Absolute 0.3 10 3/mcL Normal 0.0-0.7 [facility] Comment on above: Performed By: #### A DIFF, CBC, ANEU, GFR, BMP #### [address] [address] Eosinophils/100 WBC (Bld) 4.2 % Normal 0.0-6.[address] [facility] Comment on above: Performed By: #### A DIFF, CBC, ANEU, GFR, BMP #### [address] [address] Lymphocyte, Absolute 2.2 10 3/mcL Normal 0.9-4.3 [facility] Comment on above: Performed By: #### A DIFF, CBC, ANEU, GFR, BMP #### [address] [address] Lymphocytes/100 WBC (Bld) 26.3 % Normal 20.0-40.[address] [facility] Comment on above: Performed By: #### A DIFF, CBC, ANEU, GFR, BMP #### [address] [address] Monocyte, Absolute 0.9 10 3/mcL Normal 0.1-1.4 [facility] Comment on above: Performed By: #### A DIFF, CBC, ANEU, GFR, BMP #### [address] [address] Monocytes/100 WBC (Bld) 11.4 % Normal 2.0-13.0 [facility] Comment on above: Performed By: #### A DIFF, CBC, ANEU, GFR, BMP #### [address] [address] Neutrophils/100 WBC (Bld) 57.1 % Normal 50.0-75.[address] [facility] Comment on above: Performed By: #### A DIFF, CBC, ANEU, GFR, BMP #### [address] [address] .GFRon 08-26-2024 Estimated Glomerular Filtration Rate 59 ml/min/1.73sqm Normal [facility] [...] A DIFF, CBC, ANEU, GFR, BMP #### [address] [address] .NEUABSon 08-26-2024 Neutrophil, Absolute 4.7 10 3/mcL Normal 2.3-8.1 [facility] Comment on above: Performed By: #### A DIFF, CBC, ANEU, GFR, BMP #### [address] [address] BMPon 08-26-2024 BUN/Creatinine Ratio 35.1 ratio High 10.0-22.0 [facility] Comment on above: Performed By: #### A DIFF, CBC, ANEU, GFR, BMP #### [address] [address] Calcium [Mass/Vol] 9.8 mg/dL Normal 8.7-10.4 [facility] Comment on above: Performed By: #### A DIFF, CBC, ANEU, GFR, BMP #### [address] [address] Chloride [Moles/Vol] 98 mmol/L Normal 98-110 [facility] Comment on above: Performed By: #### A DIFF, CBC, ANEU, GFR, BMP #### [address] [address] CO2 [Moles/Vol] 25 mmol/L Normal 22-[address] [facility] Comment on above: Performed By: #### A DIFF, CBC, ANEU, GFR, BMP #### [place] [id number] Creatinine [Mass/Vol] 0.97 mg/dL Normal 0.50-1.20 [facility] Comment on above: Result Comment: Test ing performed on Yatedo analyzer using enzymatic creatinine methodology. Performed By: #### A DIFF, CBC, ANEU, GFR, BMP #### [place] [address] Electrolyte Balance 12.0 mEq/L Normal 4.0-15.0 [facility] Comment on above: Performed By: #### A DIFF, CBC, ANEU, GFR, BMP #### [place] [id number] Glucose [Mass/Vol] 160 mg/dL High 82-115 [facility] Comment on above: Performed By: #### A DIFF, CBC, ANEU, GFR, BMP #### [place] [id number] Potassium [Moles/Vol] 4.7 mmol/L Normal 3.5-5.0 [facility] Comment on above: Result Comment: Spec imen slightly hemolyzed. Performed By: #### A DIFF, CBC, ANEU, GFR, BMP #### [place] [id number] Sodium [Moles/Vol] 135 mmol/L Low 136-145 [facility] Comment on above: Performed By: #### A DIFF, CBC, ANEU, GFR, BMP #### [place] [address] Urea nitrogen [Mass/Vol] 34.0 mg/dL High 8.0-22.[address] [facility] Comment on above: Performed By: #### A DIFF, CBC, ANEU, GFR, BMP #### [place] [id number] CBCon 08-26-2024 Erythrocyte distribution width (RBC) [Ratio] 14.0 % Normal 11.5-15.[address] [facility] Comment on above: Performed By: #### A DIFF, CBC, ANEU, GFR, BMP #### [place] [address] Hematocrit (Bld) [Volume fraction] 41.0 % Normal 34.0-46.[address] [facility] Comment on above: Performed By: #### A DIFF, CBC, ANEU, GFR, BMP #### [place] [address] Hgb 13.4 G/dL Normal 12.0-16.[address] [facility] Comment on above: Performed By: #### A DIFF, CBC, ANEU, GFR, BMP #### [place] [address] MCH (RBC) [Entitic mass] 30.0 pg Normal 27.0-33.[address] [facility] Comment on above: Performed By: #### A DIFF, CBC, ANEU, GFR, BMP #### [place] [address] MCHC 32.7 G/dL Normal 32.0-36.[address] [facility] Comment on above: Performed By: #### A DIFF, CBC, ANEU, GFR, BMP #### [place] [address] MCV (RBC) [Entitic vol] 91.9 fL Normal 80.0-99.0 [facility] Comment on above: Performed By: #### A DIFF, CBC, ANEU, GFR, BMP #### [place] [address] Platelet 297 10 3/mcL Normal 150-[address] [facility] Comment on above: Performed By: #### A DIFF, CBC, ANEU, GFR, BMP #### [address] [address] Platelet mean volume (Bld) [Entitic vol] 11.0 fL High 6.6-10.[address] [facility] Comment on above: Performed By: #### A DIFF, CBC, ANEU, GFR, BMP #### [address] [address] RBC 4.46 10 6/mcL Normal 4.10-5.[address] [facility] Comment on above: Performed By: #### A DIFF, CBC, ANEU, GFR, BMP #### [address] [address] WBC 8.3 10 3/mcL Normal 4.5-10.[address] [facility] Comment on above: Performed By: #### A DIFF, CBC, ANEU, GFR, BMP #### [address] [address] LABORATORYOrdered By: SYSTEM SYSTEM on 08-26-2024 Basophils [...] above: Interpretive Data: T esting performed on Leetchi CH analyzer using enzymatic creatinine methodology. Electrolyte [...] 0.9 103/mcL Normal 0.1 - 1.4 10^3/mcL Workflow SS Monocytes/100 WBC (Bld) 11.4 % [...] XR HAND AND WRIST 6 VIEWS LE [facility] 08-25-2024 XR HAND AND WRIST 6 [...] 08/25/2024 2:27:26 PM Ordering Provider: JACKLYN LINDSEY [facility] MAIN XR HUMERUS MINIMUM 2 VIEWS L [facility] 08-25-2024 XR HUMERUS MINIMUM 2 VIEWS LEFT [...] Sign Date: 08/25/2024 2:26:11 PM Ordering Provider: [facility] MAIN XR SHOULDER MINIMUM 2 VIEWS [...] Sign Date: 08/25/2024 2:26:45 PM Ordering Provider: [facility] MAIN LABORATORYOrdered By: Kala lux on 08-23-2024 Glucose [Mass/Vol] 278 mg/dL [facility] Work Phone: LABORATORYOrdered By: Kala lux on 08-22-2024 Glucose [Mass/Vol] 320 mg/dL [facility] [employer] Work Phone: A1Con 08-21-2024 Glucose [Mass/Vol] 194 mg/dL Normal [facility] Comment on above: Result Comment: Nancy mated Average Glucose calculated by equation ((28.7xA1C)-46.7) Estimated average glucose (eAG) is a calculated value from Hemoglobin A1C and is cash applications representative of the average blood glucose level in the last 2-3 month period. Normal range: less than 114 mg/dL Performed By: #### A 1C #### [address] [address] HbA1c (Bld) [Mass fraction] 8.4 % High 4.0-6.[address] [facility] Comment on above: Performed By: #### A 1C #### [address] [address] LABORATORYOrdered By: SYSTEM SYSTEM on 08-21-2024 Glucose [Mass/Vol] 194 mg/dL Invalid Interpretation Code Auto Chem SS Comment on above: Interpretive Data: E stimated average glucose (eAG) is a calculated value from Hemoglobin A1C and is cash applications representative of the average blood glucose level in the last 2-3 month period. Normal range: less than 114 mg/dL HbA1c (Bld) [Mass fraction] 8.4 % High 4.0 - 6.0 % AH Auto Chem SS .Auto Diffon 08-20-2024 Basophil, Absolute 0.1 10 3/mcL Normal 0.0-0.3 [facility] Comment on above: Performed By: #### B MP, ADIFF, CBC, GFR, ANEU #### [address] [address] Basophils/100 WBC (Bld) 1.1 % Normal 0.0-2.5 [facility] Comment on above: Performed By: #### B MP, ADIFF, CBC, GFR, ANEU #### [address] [address] Eosinophil, Absolute 0.3 10 3/mcL Normal 0.0-0.7 [facility] Comment on above: Performed By: #### B MP, ADIFF, CBC, GFR, ANEU #### [address] [address] Eosinophils/100 WBC (Bld) 3.6 % Normal 0.0-6.[address] [facility] Comment on above: Performed By: #### B MP, ADIFF, CBC, GFR, ANEU #### [address] [address] Lymphocyte, Absolute 1.7 10 3/mcL Normal 0.9-4.3 [facility] Comment on above: Performed By: #### B MP, ADIFF, CBC, GFR, ANEU #### [address] [address] Lymphocytes/100 WBC (Bld) 20.8 % Normal 20.0-40.[address] [facility] Comment on above: Performed By: #### B MP, ADIFF, CBC, GFR, ANEU #### [address] [address] Monocyte, Absolute 0.9 10 3/mcL Normal 0.1-1.4 [facility] Comment on above: Performed By: #### B MP, ADIFF, CBC, GFR, ANEU #### [address] [address] Monocytes/100 WBC (Bld) 11.4 % Normal 2.0-13.0 [facility] Comment on above: Performed By: #### B MP, ADIFF, CBC, GFR, ANEU #### [address] [address] Neutrophils/100 WBC (Bld) 63.1 % Normal 50.0-75.[address] [facility] Comment on above: Performed By: #### B MP, ADIFF, CBC, GFR, ANEU #### [address] [address] .GFRon 08-20-2024 Estimated Glomerular Filtration Rate 55 ml/min/1.73sqm Normal [facility] [...] A DIFF, CBC, ANEU, GFR, BMP #### [place] [id number] .NEUABSon 08-20-2024 Neutrophil, Absolute 5.1 10 3/mcL Normal 2.3-8.1 [facility] Comment on above: Performed By: #### B MP, ADIFF, CBC, GFR, ANEU #### [place] [address] BMPon 08-20-2024 BUN/Creatinine Ratio 29.8 ratio High 10.0-22.0 [facility] Comment on above: Performed By: #### B MP, ADIFF, CBC, GFR, ANEU #### [place] [address] Calcium [Mass/Vol] 9.8 mg/dL Normal 8.7-10.4 [facility] Comment on above: Performed By: #### B MP, ADIFF, CBC, GFR, ANEU #### [place] [address] Chloride [Moles/Vol] 95 mmol/L Low 98-110 [facility] [facility] Comment on above: Performed By: #### B MP, ADIFF, CBC, GFR, ANEU #### [place] [address] CO2 [Moles/Vol] 34 mmol/L High 22-[address] [facility] Comment on above: Performed By: #### B MP, ADIFF, CBC, GFR, ANEU #### [place] [address] Creatinine [Mass/Vol] 1.04 mg/dL Normal 0.50-1.20 [facility] Comment on above: Result Comment: Test ing performed on Yatedo analyzer using enzymatic creatinine methodology. Performed By: #### B MP, ADIFF, CBC, GFR, ANEU #### [address] [address] Electrolyte Balance 5.0 mEq/L Normal 4.0-15.0 [facility] Comment on above: Performed By: #### B MP, ADIFF, CBC, GFR, ANEU #### [address] [address] Glucose [Mass/Vol] 244 mg/dL High 82-115 [facility] MAIN Comment on above: Performed By: #### B MP, ADIFF, CBC, GFR, ANEU #### [address] [address] Potassium [Moles/Vol] 4.8 mmol/L Normal 3.5-5.0 [facility] Comment on above: Result Comment: Spec imen slightly hemolyzed. Performed By: #### B MP, ADIFF, CBC, GFR, ANEU #### [place] [id number] Sodium [Moles/Vol] 134 mmol/L Low 136-145 [facility] MAIN Comment on above: Performed By: #### B MP, ADIFF, CBC, GFR, ANEU #### [place] [phone] Urea nitrogen [Mass/Vol] 31.0 mg/dL High 8.0-22.[address] [facility] Comment on above: Performed By: #### B MP, ADIFF, CBC, GFR, ANEU #### [address] [address] CBCon 08-20-2024 Erythrocyte distribution width (RBC) [Ratio] 14.0 % Normal 11.5-15.[address] [facility] Comment on above: Performed By: #### B MP, ADIFF, CBC, GFR, ANEU #### [address] [address] Hematocrit (Bld) [Volume fraction] 41.9 % Normal 34.0-46.[address] [facility] Comment on above: Performed By: #### B MP, ADIFF, CBC, GFR, ANEU #### [place] [phone] Hgb 13.6 G/dL Normal 12.0-16.[address] [facility] Comment on above: Performed By: #### B MP, ADIFF, CBC, GFR, ANEU #### [place] [address] MCH (RBC) [Entitic mass] 29.7 pg Normal 27.0-33.[address] [facility] Comment on above: Performed By: #### B MP, ADIFF, CBC, GFR, ANEU #### [place] [address] MCHC 32.4 G/dL Normal 32.0-36.[address] [facility] Comment on above: Performed By: #### B MP, ADIFF, CBC, GFR, ANEU #### [place] [address] MCV (RBC) [Entitic vol] 91.5 fL Normal 80.0-99.0 [facility] MAIN Comment on above: Performed By: #### B MP, ADIFF, CBC, GFR, ANEU #### [place] [address] Platelet 301 10 3/mcL Normal 150-[address] [facility] Comment on above: Performed By: #### B MP, ADIFF, CBC, GFR, ANEU #### [place] [address] Platelet mean volume (Bld) [Entitic vol] 11.0 fL High 6.6-10.[address] [facility] Comment on above: Performed By: #### B MP, ADIFF, CBC, GFR, ANEU #### [place] [address] RBC 4.58 10 6/mcL Normal 4.10-5.[address] [facility] Comment on above: Performed By: #### B MP, ADIFF, CBC, GFR, ANEU #### [place] [address] WBC 8.1 10 3/mcL Normal 4.5-10.[address] [facility] Comment on above: Performed By: #### B MP, ADIFF, CBC, GFR, ANEU #### [place] [address] LABORATORYOrdered By: SYSTEM SYSTEM on 08-20-2024 Basophils [...] above: Interpretive Data: T esting performed on Yatedo analyzer using enzymatic creatinine methodology. Electrolyte Balance [...] 08/18/2024 3:14:15 PM Ordering Provider: NANDO Anderson [facility] .Auto Diffon 08-16-2024 Basophil, Absolute 0.1 10 3/mcL Normal 0.0-0.3 [facility] MAIN Comment on above: Performed By: #### A DIFF, CBC, ANEU, GFR, BMP #### [address] [address] Basophils/100 WBC (Bld) 0.7 % Normal 0.0-2.5 [facility] MAIN Comment on above: Performed By: #### A DIFF, CBC, ANEU, GFR, BMP #### [address] [address] Eosinophil, Absolute 0.3 10 3/mcL Normal 0.0-0.7 [facility] MAIN Comment on above: Performed By: #### A DIFF, CBC, ANEU, GFR, BMP #### [address] [address] Eosinophils/100 WBC (Bld) 2.1 % Normal 0.0-6.[address] [facility] Comment on above: Performed By: #### A DIFF, CBC, ANEU, GFR, BMP #### [address] [address] Lymphocyte, Absolute 1.9 10 3/mcL Normal 0.9-4.3 [facility] MAIN Comment on above: Performed By: #### A DIFF, CBC, ANEU, GFR, BMP #### [address] [address] Lymphocytes/100 WBC (Bld) 14.8 % Low 20.0-40.[address] [facility] Comment on above: Performed By: #### A DIFF, CBC, ANEU, GFR, BMP #### [address] [address] Monocyte, Absolute 1.2 10 3/mcL Normal 0.1-1.4 [facility] MA[facility] Comment on above: Performed By: #### A DIFF, CBC, ANEU, GFR, BMP #### [address] [address] Monocytes/100 WBC (Bld) 9.8 % Normal 2.0-13.0 [facility] MAIN Comment on above: Performed By: #### A DIFF, CBC, ANEU, GFR, BMP #### [address] [address] Neutrophils/100 WBC (Bld) 72.6 % Normal 50.0-75.[address] [facility] Comment on above: Performed By: #### A DIFF, CBC, ANEU, GFR, BMP #### [address] [address] .GFRon 08-16-2024 Estimated Glomerular Filtration Rate 58 ml/min/1.73sqm Normal [facility] MA[facility] [...] A DIFF, CBC, ANEU, GFR, BMP #### [address] [address] .NEUABSon 08-16-2024 Neutrophil, Absolute 9.2 10 3/mcL High 2.3-8.1 [facility] MAIN Comment on above: Performed By: #### A DIFF, CBC, ANEU, GFR, BMP #### [address] [address] BMPon 08-16-2024 BUN/Creatinine Ratio 34.3 ratio High 10.0-22.0 [facility] MA[facility] Comment on above: Performed By: #### A DIFF, CBC, ANEU, GFR, BMP #### [address] [address] Calcium [Mass/Vol] 9.0 mg/dL Normal 8.7-10.4 [facility] MAIN Comment on above: Performed By: #### A DIFF, CBC, ANEU, GFR, BMP #### [place] [phone] Chloride [Moles/Vol] 100 mmol/L Normal 98-110 [facility] MA[facility] Comment on above: Performed By: #### A DIFF, CBC, ANEU, GFR, BMP #### [address] [address] CO2 [Moles/Vol] 30 mmol/L Normal 22-[address] [facility] Comment on above: Performed By: #### A DIFF, CBC, ANEU, GFR, BMP #### [address] [address] Creatinine [Mass/Vol] 0.99 mg/dL Normal 0.50-1.20 [facility] Comment on above: Result Comment: Test ing performed on Yatedo analyzer using enzymatic creatinine methodology. Performed By: #### A DIFF, CBC, ANEU, GFR, BMP #### [place] [phone] Electrolyte Balance 5.0 mEq/L Normal 4.0-15.0 [facility] Comment on above: Performed By: #### A DIFF, CBC, ANEU, GFR, BMP #### [place] [phone] Glucose [Mass/Vol] 259 mg/dL High 82-115 [facility] MAIN Comment on above: Performed By: #### A DIFF, CBC, ANEU, GFR, BMP #### [place] [phone] Potassium [Moles/Vol] 5.0 mmol/L Normal 3.5-5.0 [facility] Comment on above: Performed By: #### A DIFF, CBC, ANEU, GFR, BMP #### [place] [phone] Sodium [Moles/Vol] 135 mmol/L Low 136-145 [facility] MAIN Comment on above: Performed By: #### A DIFF, CBC, ANEU, GFR, BMP #### [place] [address] Urea nitrogen [Mass/Vol] 34.0 mg/dL High 8.0-22.[address] [facility] Comment on above: Performed By: #### A DIFF, CBC, ANEU, GFR, BMP #### [place] [address] CBCon 08-16-2024 Erythrocyte distribution width (RBC) [Ratio] 13.7 % Normal 11.5-15.[address] [facility] Comment on above: Performed By: #### A DIFF, CBC, ANEU, GFR, BMP #### [place] [address] Hematocrit (Bld) [Volume fraction] 43.3 % Normal 34.0-46.[address] [facility] Comment on above: Performed By: #### A DIFF, CBC, ANEU, GFR, BMP #### [place] [address] Hgb 13.9 G/dL Normal 12.0-16.[address] [facility] Comment on above: Performed By: #### A DIFF, CBC, ANEU, GFR, BMP #### [place] [phone] MCH (RBC) [Entitic mass] 30.0 pg Normal 27.0-33.[address] [facility] Comment on above: Performed By: #### A DIFF, CBC, ANEU, GFR, BMP #### [address] [address] MCHC 32.1 G/dL Normal 32.0-36.[address] [facility] Comment on above: Performed By: #### A DIFF, CBC, ANEU, GFR, BMP #### [place] [phone] MCV (RBC) [Entitic vol] 93.6 fL Normal 80.0-99.0 [facility] MAIN Comment on above: Performed By: #### A DIFF, CBC, ANEU, GFR, BMP #### [place] [address] Platelet 230 10 3/mcL Normal 150-[address] [facility] Comment on above: Performed By: #### A DIFF, CBC, ANEU, GFR, BMP #### [place] [address] Platelet mean volume (Bld) [Entitic vol] 10.7 fL High 6.6-10.[address] [facility] Comment on above: Performed By: #### A DIFF, CBC, ANEU, GFR, BMP #### [place] [address] RBC 4.63 10 6/mcL Normal 4.10-5.[address] [facility] Comment on above: Performed By: #### A DIFF, CBC, ANEU, GFR, BMP #### [place] [phone] WBC 12.7 10 3/mcL High 4.5-10.[address] [facility] Comment on above: Performed By: #### A DIFF, CBC, ANEU, GFR, BMP #### [place] [address] LABORATORYOrdered By: Marily Panda on 08-16-2024 Blood Glucose Interventions Administered agent to decrease blood sugar (08/16/24 12:23 PM) [employer] Work Phone: Blood Glucose Interventions Retest (08/16/24 10:15 AM) [employer] Work Phone: Bacteria identified Cx Nom ( Bld)on 08-15-2024 Bacteria identified Cx Nom (Unsp spec) NO GROWTH DAY 5 OF 5 [facility] CARDIAC RHYTHMon 08-15-2024 [facility] CBC,PLATELETSon 08-15-2024 Erythrocyte distribution width (RBC) [Ratio] 13.4 % 10.8 - 14.9 % [facility] Hematocrit (Bld) [Volume fraction] 43.8 % 34.9 - 44.3 % [facility] Hemoglobin (Bld) [Mass/Vol] 13.5 g/dL 11.4 - 15.2 g/dL [facility] Interpretation and review of laboratory results Abnormal [facility] MCH (RBC) [Entitic mass] 28.9 pg 25.9 - 33.9 pg [facility] MCHC (RBC) [Mass/Vol] 30.8 g/dL Low 31.4 - 35.9 g/dL [facility] MCV (RBC) [Entitic vol] 93.8 fL 79.6 - 97.7 fL [facility] Platelet mean volume (Bld) [Entitic vol] 12 fL 8.5 - 12.2 fL [facility] Platelets (Bld) [#/Vol] 252 10*3/uL 150 - 393 K/uL [facility] RBC (Bld) [#/Vol] 4.67 10*6/uL [facility] WBC (Bld) [#/Vol] 11.94 10*3/uL High 3.99 - 11.19 K/uL [facility] Hematocrit (Bld) [Volume fraction] 43.8 % Normal 34.9-44.3 [facility] Comment on above: Performed By: #### X M #### [facility] (DEFAULT) [address] [address] Hemoglobin (Bld) [Mass/Vol] 13.5 g/dL Normal 11.4-15.2 [facility] Comment on above: Performed By: #### X M #### [facility] (DEFAULT) [address] [address] MCV (RBC) [Entitic vol] 93.8 fL Normal 79.6-97.7 [facility] Comment on above: Performed By: #### X M #### [facility] (DEFAULT) [address] [address] Mean Cell Hgb 28.9 pg Normal 25.9-33.9 [facility] Comment on above: Performed By: #### X M #### [facility] (DEFAULT) [address] [address] Mean Cell Hgb Conc 30.8 g/dL Low 31.4-35.9 [facility] Comment on above: Performed By: #### X M #### [facility] (DEFAULT) [address] [address] Platelet mean volume (Bld) [Entitic vol] 12.0 fL Normal 8.5-12.2 [facility] Comment on above: Performed By: #### X M #### [facility] (DEFAULT) [address] [address] Platelets (Bld) [#/Vol] 252 10*3/uL Normal 150-393 [facility] Comment on above: Performed By: #### X M #### [facility] (DEFAULT) [address] [address] RBC (Bld) [#/Vol] 4.67 10*6/uL Normal 3.91-5.04 [facility] Comment on above: Performed By: #### X M #### [facility] (DEFAULT) [address] [address] RBC Distribution 13.4 % Normal 10.8-14.9 [facility] Comment on above: Performed By: #### X M #### [facility] (DEFAULT) [address] [address] WBC (Bld) [#/Vol] 11.94 10*3/uL High 3.99-11.19 [facility] Comment on above: Performed By: #### X M #### [facility] (DEFAULT) [address] [place] [address] CHEM 7 (LYTES,BUN,CREA,GLUC) on 08-15-2024 Anion gap [Moles/Vol] 16 mmol/L 7 - 17 mmol/L [facility] Chloride [Moles/Vol] 99 mmol/L 98 - 10 8 [facility] [Moles/Vol] 25 mmol/L 21 - 31 [facility] Creatinine [Mass/Vol] 1.27 mg/dL High 0.50 - 1.20 mg/dL [facility] eGFR, CKD-EPI, Female 43 Low - PINF [facility] Glucose [Mass/Vol] 214 mg/dL High 70 - 179 mg/dL [facility] Interpretation and review of laboratory results Abnormal [facility] Osmolality Calc [Osmolality] 306 High [facility] Potassium [Moles/Vol] 4.8 mmol/L 3.5 - 5.0 mmol/L [facility] Sodium [Moles/Vol] 135 mmol/L 135 - 145 mmol/L [facility] Urea nitrogen [Mass/Vol] 51 mg/dL High 7 - 25 mg/dL [facility] Urea nitrogen/Creatinine [Mass ratio] 40 mg/mg [facility] Anion gap [Moles/Vol] 16 mmol/L Normal 7-17 [facility] Comment on above: Performed By: #### [facility] #### [facility] (DEFAULT) [address] [place] [address] Chloride [Moles/Vol] 99 mmol/L Normal 98-108 [facility] Comment on above: Performed By: #### [facility] #### [facility] (DEFAULT) [address] [place] [address] CO2 [Moles/Vol] 25 mmol/L Normal 21-31 [facility] Comment on above: Performed By: #### [facility] #### [facility] (DEFAULT) [address] [place] [address] Creatinine [Mass/Vol] 1.27 mg/dL High 0.50-1.20 [facility] Comment on above: Performed By: #### H EMOGC #### [facility] (DEFAULT) [address] [place] [address] GFR/1.73 sq M.predicted among non-blacks MDRD (S/P/Bld) [Vol rate/Area] 43 mL/min/{1.73_m2} Low >=60 [facility] Comment on above: Result Comment: Repo rted eGFR is based on the CKD-EPI 2020 equation using creatinine, age, and sex. Performed By: #### H EMO #### [facility] (DEFAULT) [address] [place] [address] Glucose [Mass/Vol] 214 mg/dL High Nonfastin -179 mg/dL; Fastin-99 [facility] Comment on above: Performed By: #### H EMO #### [facility] (DEFAULT) [address] [place] [address] Osmolality [Osmolality] 306 mosm/kg High 278-305 [facility] Comment on above: Performed By: #### H EMO #### [facility] (DEFAULT) [address] [place] [address] Potassium [Moles/Vol] 4.8 mmol/L Normal 3.5-5.0 [facility] Comment on above: Performed By: #### H EMOGC #### [facility] (DEFAULT) [address] [place] [address] Sodium [Moles/Vol] 135 mmol/L Normal 135-145 [facility] Comment on above: Performed By: #### H EMOGC #### [facility] (DEFAULT) [address] [place] [address] Urea nitrogen [Mass/Vol] 51 mg/dL High 7-25 [facility] Comment on above: Performed By: #### [facility] #### [facility] (DEFAULT) [address] [place] [address] Urea nitrogen/Creatinine [Mass ratio] 40 mg/mg Normal [facility] Comment on above: Performed By: #### H EMO #### [facility] (DEFAULT) [address] [place] [address] GLUCOSE POCon 08-15-2024 Glucose [Mass/Vol] 190 mg/dL High 70 - 179 mg/dL [facility] Interpretation and review of laboratory results Abnormal [facility] POC Sample Type CAPBL [facility] Glucose [Mass/Vol] 146 mg/dL 70 - 179 mg/dL [facility] POC Sample Type CAPBL [facility] Glucose [Mass/Vol] 215 mg/dL High 70 - 179 mg/dL [facility] Interpretation and review of laboratory results Abnormal [facility] POC Sample Type CAPBL [facility] MAGNESIUMon 08-15-2024 Interpretation and review of laboratory results Normal [facility] Magnesium [Mass/Vol] 1.6 mg/dL 1.6 - 2 .6 mg/dL [facility] Magnesium [Mass/Vol] 1.6 mg/dL Normal 1.6-2.6 [facility] Comment on above: Performed By: #### [facility] #### [facility] (DEFAULT) [address] [place] [address] No Panel Informationon 08-15 [facility] CBC,PLATELETSon 08-14-2024 Erythrocyte distribution width (RBC) [Ratio] 13.4 % 10.8 - 14.9 % [facility] Hematocrit (Bld) [Volume fraction] 47.9 % High 34.9 - 44.3 % [facility] Hemoglobin (Bld) [Mass/Vol] 14.3 g/dL 11.4 - 15.2 g/dL [facility] Interpretation and review of laboratory results Abnormal [facility] MCH (RBC) [Entitic mass] 29.3 pg 25.9 - 33.9 pg [facility] MCHC (RBC) [Mass/Vol] 29.9 g/dL Low 31.4 - 35.9 g/dL [facility] MCV (RBC) [Entitic vol] 98.2 fL High 79.6 - 97.7 fL [facility] Platelet mean volume (Bld) [Entitic vol] 11.3 fL 8.5 - 12.2 fL [facility] Platelets (Bld) [#/Vol] 229 10*3/uL 150 - 393 K/uL [facility] RBC (Bld) [#/Vol] 4.88 10*6/uL [facility] WBC (Bld) [#/Vol] 12.14 10*3/uL High 3.99 - 11.19 K/uL [facility] Hematocrit (Bld) [Volume fraction] 47.9 % High 34.9-44.3 [facility] Comment on above: Performed By: #### X M #### [facility] (DEFAULT) [address] [place] [address] Hemoglobin (Bld) [Mass/Vol] 14.3 g/dL Normal 11.4-15.2 [facility] Comment on above: Performed By: #### X M #### [facility] (DEFAULT) [address] [place] [address] MCV (RBC) [Entitic vol] 98.2 fL High 79.6-97.7 [facility] Comment on above: Performed By: #### X M #### [facility] (DEFAULT) [address] [place] [address] Mean Cell Hgb 29.3 pg Normal 25.9-33.9 [facility] Comment on above: Performed By: #### X M #### [facility] (DEFAULT) [address] [place] [address] Mean Cell Hgb Conc 29.9 g/dL Low 31.4-35.9 [facility] Comment on above: Performed By: #### X M #### [facility] (DEFAULT) [address] [place] [address] Platelet mean volume (Bld) [Entitic vol] 11.3 fL Normal 8.5-12.2 [facility] Comment on above: Performed By: #### X M #### [facility] (DEFAULT) [address] [place] [address] Platelets (Bld) [#/Vol] 229 10*3/uL Normal 150-393 [facility] Comment on above: Performed By: #### X M #### [facility] (DEFAULT) [address] [place] [address] RBC (Bld) [#/Vol] 4.88 10*6/uL Normal 3.91-5.04 [facility] Comment on above: Performed By: #### X M #### [facility] (DEFAULT) [address] [place] [address] RBC Distribution 13.4 % Normal 10.8-14.9 [facility] Comment on above: Performed By: #### X M #### [facility] (DEFAULT) [address] [place] [address] WBC (Bld) [#/Vol] 12.14 10*3/uL High 3.99-11.19 [facility] Comment on above: Performed By: #### X M #### [facility] (DEFAULT) [address] [place] [address] CHEM 7 (LYTES,BUN,CREA,GLUC) on 08-14-2024 Anion gap [Moles/Vol] 16 mmol/L 7 - 17 mmol/L [facility] Chloride [Moles/Vol] 101 mmol/L 98 - 10 8 mmol/L [facility] CO2 [Moles/Vol] 23 mmol/L 21 - 31 mmol/L [facility] Creatinine [Mass/Vol] 1.15 mg/dL 0.50 - 1.20 mg/dL [facility] eGFR, CKD-EPI, Female 48 Low - PINF [facility] Glucose [Mass/Vol] 208 mg/dL High 70 - 179 mg/dL [facility] Interpretation and review of laboratory results Abnormal [facility] Osmolality Calc [Osmolality] 304 [facility] Potassium [Moles/Vol] 4.7 mmol/L 3.5 - 5.0 mmol/L [facility] Sodium [Moles/Vol] 135 mmol/L 135 - 145 mmol/L [facility] Urea nitrogen [Mass/Vol] 47 mg/dL High 7 - 25 mg/dL [facility] Urea nitrogen/Creatinine [Mass ratio] 41 mg/mg [facility] Anion gap [Moles/Vol] 16 mmol/L Normal 7-17 [facility] Comment on above: Performed By: #### B LDCULT #### [facility] (DEFAULT) [address] [place] [address] Chloride [Moles/Vol] 101 mmol/L Normal 98-108 [facility] Comment on above: Performed By: #### B LDCULT #### [facility] (DEFAULT) [address] [place] [address] CO2 [Moles/Vol] 23 mmol/L Normal 21-31 [facility] Comment on above: Performed By: #### B LDCULT #### [facility] (DEFAULT) [address] [place] [address] Creatinine [Mass/Vol] 1.15 mg/dL Normal 0.50-1.20 [facility] Comment on above: Performed By: #### B LDCULT #### [facility] (DEFAULT) [address] [place] [address] GFR/1.73 sq M.predicted among non-blacks MDRD (S/P/Bld) [Vol rate/Area] 48 mL/min/{1.73_m2} Low >=60 [facility] Comment on above: Result Comment: Repo rted eGFR is based on the CKD-EPI 2020 equation using creatinine, age, and sex. Performed By: #### B LDCULT #### [facility] (DEFAULT) [address] [place] [address] Glucose [Mass/Vol] 208 mg/dL High Nonfastin -179 mg/dL; Fastin-99 [facility] Comment on above: Performed By: #### B LDCULT #### [facility] (DEFAULT) [address] [place] [address] Osmolality [Osmolality] 304 mosm/kg Normal 278-305 [facility] Comment on above: Performed By: #### B LDCULT #### [facility] (DEFAULT) [address] [place] [address] Potassium [Moles/Vol] 4.7 mmol/L Normal 3.5-5.0 [facility] Comment on above: Performed By: #### B LDCULT #### [facility] (DEFAULT) [address] [place] [address] Sodium [Moles/Vol] 135 mmol/L Normal 135-145 [facility] Comment on above: Performed By: #### B LDCULT #### [facility] (DEFAULT) [address] [place] [address] Urea nitrogen [Mass/Vol] 47 mg/dL High 7-25 [facility] Comment on above: Performed By: #### B LDCULT #### [facility] (DEFAULT) [address] [place] [address] Urea nitrogen/Creatinine [Mass ratio] 41 mg/mg Normal [facility] Comment on above: Performed By: #### B LDCULT #### [facility] (DEFAULT) [address] [place] [address] GLUCOSE POCon 04-02-2025 Glucose [Mass/Vol] 204 mg/dL High 70 - 179 mg/dL [facility] Interpretation and review of laboratory results Abnormal [facility] POC Sample Type CAPBL [facility] Glucose [Mass/Vol] 264 mg/dL High 70 - 179 mg/dL [facility] Interpretation and review of laboratory results Abnormal [facility] POC Sample Type CAPBL [facility] Glucose [Mass/Vol] 189 mg/dL High 70 - 179 mg/dL [facility] Interpretation and review of laboratory results Abnormal [facility] POC Sample Type CAPBL [facility] MAGNESIUMon 08-14-2024 Interpretation and review of laboratory results Normal [facility] Magnesium [Mass/Vol] 1.6 mg/dL 1.6 - 2 .6 mg/dL [facility] Magnesium [Mass/Vol] 1.6 mg/dL Normal 1.6-2.6 [facility] Comment on above: Performed By: #### B LDCULT #### [facility] (DEFAULT) [address] [place] [address] No Panel Informationon 08-14 [facility] CBC,PLATELETSon 08-13-2024 Erythrocyte distribution width (RBC) [Ratio] 13.4 % 10.8 - 14.9 % [facility] Hematocrit (Bld) [Volume fraction] 45.7 % High 34.9 - 44.3 % [facility] Hemoglobin (Bld) [Mass/Vol] 14.3 g/dL 11.4 - 15.2 g/dL [facility] Interpretation and review of laboratory results Abnormal [facility] MCH (RBC) [Entitic mass] 29.5 pg 25.9 - 33.9 pg [facility] MCHC (RBC) [Mass/Vol] 31.3 g/dL Low 31.4 - 35.9 g/dL [facility] MCV (RBC) [Entitic vol] 94.2 fL 79.6 - 97.7 fL [facility] Platelet mean volume (Bld) [Entitic vol] 11.7 fL 8.5 - 12.2 fL [facility] Platelets (Bld) [#/Vol] 245 10*3/uL 150 - 393 K/uL [facility] RBC (Bld) [#/Vol] 4.85 10*6/uL [facility] WBC (Bld) [#/Vol] 12.02 10*3/uL High 3.99 - 11.19 K/uL [facility] Hematocrit (Bld) [Volume fraction] 45.7 % High 34.9-44.3 [facility] Comment on above: Performed By: #### [facility] #### [facility] (DEFAULT) [address] [address] Hemoglobin (Bld) [Mass/Vol] 14.3 g/dL Normal 11.4-15.2 [facility] Comment on above: Performed By: #### H EMO #### [facility] (DEFAULT) [address] [address] MCV (RBC) [Entitic vol] 94.2 fL Normal 79.6-97.7 [facility] Comment on above: Performed By: #### H EMO #### [facility] (DEFAULT) [address] [place] [address]9921 Mean Cell Hgb 29.5 pg Normal 25.9-33.9 [facility] Comment on above: Performed By: #### H EMOGC #### [facility] (DEFAULT) [address] [address] Mean Cell Hgb Conc 31.3 g/dL Low 31.4-35.9 [facility] Comment on above: Performed By: #### H EMOGC #### [facility] (DEFAULT) [address] [place] [address] 17495 Platelet mean volume (Bld) [Entitic vol] 11.7 fL Normal 8.5-12.2 [facility] Comment on above: Performed By: #### H EMOGC #### [facility] (DEFAULT) [address] [place] [address]82 Platelets (Bld) [#/Vol] 245 10*3/uL Normal 150-393 [facility] Comment on above: Performed By: #### H EMOGC #### [facility] (DEFAULT) [address] [place] [address] 41569 RBC (Bld) [#/Vol] 4.85 10*6/uL Normal 3.91-5.04 [facility] Comment on above: Performed By: #### H EMOGC #### [facility] (DEFAULT) [address] [place] [address]992 RBC Distribution 13.4 % Normal 10.8-14.9 [facility] Comment on above: Performed By: #### H EMOGC #### [facility] (DEFAULT) [address] [place] [address]97 WBC (Bld) [#/Vol] 12.02 10*3/uL High 3.99-11.19 [facility] Comment on above: Performed By: #### H EMOGC #### [facility] (DEFAULT) [address] [place] [address] CHEM 7 (LYTES,BUN,CREA,GLUC) on 08-13-2024 Anion gap [Moles/Vol] 15 mmol/L 7 - 17 mmol/L [facility] Chloride [Moles/Vol] 104 mmol/L 98 - 10 8 mmol/L [facility] CO2 [Moles/Vol] 23 mmol/L 21 - 31 mmol/L [facility] Creatinine [Mass/Vol] 1.18 mg/dL 0.50 - 1.20 mg/dL [facility] eGFR, CKD-EPI, Female 47 Low - PINF [facility] Glucose [Mass/Vol] 225 mg/dL High 70 - 179 mg/dL [facility] Interpretation and review of laboratory results Abnormal [facility] Osmolality Calc [Osmolality] 311 High [facility] Potassium [Moles/Vol] 4.6 mmol/L 3.5 - 5.0 mmol/L [facility] Sodium [Moles/Vol] 137 mmol/L 135 - 145 mmol/L [facility] Urea nitrogen [Mass/Vol] 55 mg/dL High 7 - 25 mg/dL [facility] Urea nitrogen/Creatinine [Mass ratio] 47 mg/mg [facility] Anion gap [Moles/Vol] 15 mmol/L Normal 7-17 [facility] Comment on above: Performed By: #### [facility] #### [facility] (DEFAULT) [address] [place] [address] Chloride [Moles/Vol] 104 mmol/L Normal 98-108 [facility] Comment on above: Performed By: #### [facility] #### [facility] (DEFAULT) [address] [place] [address] CO2 [Moles/Vol] 23 mmol/L Normal 21-31 [facility] Comment on above: Performed By: #### [facility] #### [facility] (DEFAULT) [address] [place] [address]48 Creatinine [Mass/Vol] 1.18 mg/dL Normal 0.50-1.20 [facility] Comment on above: Performed By: #### [facility] #### [facility] (DEFAULT) [address] [place] [address] GFR/1.73 sq M.predicted among non-blacks MDRD (S/P/Bld) [Vol rate/Area] 47 mL/min/{1.73_m2} Low >=60 [facility] Comment on above: Result Comment: Repo rted eGFR is based on the CKD-EPI 2020 equation using creatinine, age, and sex. Performed By: #### H [facility] #### [facility] (DEFAULT) [address] [place] [address] 12455 Glucose [Mass/Vol] 225 mg/dL High Nonfastin -179 mg/dL; Fastin-99 [facility] Comment on above: Performed By: #### H EMOGC #### [facility] (DEFAULT) [address] [place] [address]339 Osmolality [Osmolality] 311 mosm/kg High 278-305 [facility] Comment on above: Performed By: #### H EMOGC #### [facility] (DEFAULT) [address] [place] [address] Potassium [Moles/Vol] 4.6 mmol/L Normal 3.5-5.0 [facility] Comment on above: Performed By: #### H EMOGC #### [facility] (DEFAULT) [address] [place] [address] 0[address]33 Sodium [Moles/Vol] 137 mmol/L Normal 135-145 [facility] Comment on above: Performed By: #### H EMOGC #### [facility] (DEFAULT) [address] [place] [address] 58101 Urea nitrogen [Mass/Vol] 55 mg/dL High 7-25 [facility] Comment on above: Performed By: #### H EMOGC #### [facility] (DEFAULT) [address] [place] [address] 37693 Urea nitrogen/Creatinine [Mass ratio] 47 mg/mg Normal [facility] Comment on above: Performed By: #### H EMOGC #### [facility] (DEFAULT) [address] [place] [address] 09929 GLUCOSE POCon 08-13-2024 Glucose [Mass/Vol] 195 mg/dL High 70 - 179 mg/dL [facility] Interpretation and review of laboratory results Abnormal [facility] POC Sample Type CAPBL [facility] Glucose [Mass/Vol] 198 mg/dL High 70 - 179 mg/dL [facility] Interpretation and review of laboratory results Abnormal [facility] POC Sample Type CAPBL [facility] Glucose [Mass/Vol] 158 mg/dL 70 - 179 mg/dL [facility] POC Sample Type [facility] Glucose [Mass/Vol] 211 mg/dL High 70 - 179 mg/dL [facility] Interpretation and review of laboratory results Abnormal [facility] POC Sample Type CAPBL [facility] Glucose [Mass/Vol] 240 mg/dL High 70 - 179 mg/dL [facility] Interpretation and review of laboratory results Abnormal [facility] POC Sample Type CAPBL [facility] MAGNESIUMon 08-13-2024 Interpretation and review of laboratory results Normal [facility] Magnesium [Mass/Vol] 1.8 mg/dL 1.6 - 2 .6 mg/dL [facility] Magnesium [Mass/Vol] 1.8 mg/dL Normal 1.6-2.6 [facility] Comment on above: Performed By: #### [facility] #### [facility] (DEFAULT) [address] [place] [address] No Panel Informationon 08-13 [facility] CBC,PLATELETSon 08-12-2024 Erythrocyte distribution width (RBC) [Ratio] 13.6 % 10.8 - 14.9 % [facility] Hematocrit (Bld) [Volume fraction] 45.1 % High 34.9 - 44.3 % [facility] Hemoglobin (Bld) [Mass/Vol] 14.3 g/dL 11.4 - 15.2 g/dL [facility] Interpretation and review of laboratory results Abnormal [facility] MCH (RBC) [Entitic mass] 29.7 pg 25.9 - 33.9 pg [facility] MCHC (RBC) [Mass/Vol] 31.7 g/dL 31.4 - 35.9 g/dL [facility] MCV (RBC) [Entitic vol] 93.6 fL 79.6 - 97.7 fL [facility] Platelet mean volume (Bld) [Entitic vol] 11.4 fL 8.5 - 12.2 fL [facility] Platelets (Bld) [#/Vol] 241 10*3/uL 150 - 393 K/uL [facility] RBC (Bld) [#/Vol] 4.82 10*6/uL [facility] WBC (Bld) [#/Vol] 14.32 10*3/uL High 3.99 - 11.19 K/uL [facility] Hematocrit (Bld) [Volume fraction] 45.1 % High 34.9-44.3 [facility] Comment on above: Performed By: #### [facility] #### [facility] (DEFAULT) [address] [place] [address] Hemoglobin (Bld) [Mass/Vol] 14.3 g/dL Normal 11.4-15.2 [facility] Comment on above: Performed By: #### H EMO #### [facility] (DEFAULT) [address] [place] [address] MCV (RBC) [Entitic vol] 93.6 fL Normal 79.6-97.7 [facility] Comment on above: Performed By: #### H EMO #### [facility] (DEFAULT) [address] [place] [address] 93566 Mean Cell Hgb 29.7 pg Normal 25.9-33.9 [facility] Comment on above: Performed By: #### H EMO #### [facility] (DEFAULT) [address] [place] [address] Mean Cell Hgb Conc 31.7 g/dL Normal 31.4-35.9 [facility] Comment on above: Performed By: #### H EMO #### [facility] (DEFAULT) [address] [place] [address] 02075 Platelet mean volume (Bld) [Entitic vol] 11.4 fL Normal 8.5-12.2 [facility] Comment on above: Performed By: #### H EMO #### [facility] (DEFAULT) [address] [place] [address] Platelets (Bld) [#/Vol] 241 10*3/uL Normal 150-393 [facility] Comment on above: Performed By: #### H EMOGC #### [facility] (DEFAULT) [address] [place] [address]77 RBC (Bld) [#/Vol] 4.82 10*6/uL Normal 3.91-5.04 [facility] Comment on above: Performed By: #### H EMO #### [facility] (DEFAULT) [address] [place] [address]751 RBC Distribution 13.6 % Normal 10.8-14.9 [facility] Comment on above: Performed By: #### H EMOGC #### [facility] (DEFAULT) [address] [place] [address]278 WBC (Bld) [#/Vol] 14.32 10*3/uL High 3.99-11.19 [facility] Comment on above: Performed By: #### H EMOGC #### [facility] (DEFAULT) [address] [place] [address]36 CHEM 7 (LYTES,BUN,CREA,GLUC) on 08-12-2024 Anion gap [Moles/Vol] 15 mmol/L 7 - 17 mmol/L [facility] Chloride [Moles/Vol] 104 mmol/L 98 - 10 8 mmol/L [facility] CO2 [Moles/Vol] 27 mmol/L 21 - 31 mmol/L [facility] Creatinine [Mass/Vol] 1.36 mg/dL High 0.50 - 1.20 mg/dL [facility] eGFR, CKD-EPI, Female 40 Low - PINF [facility] Glucose [Mass/Vol] 126 mg/dL 70 - 179 mg/dL [facility] Interpretation and review of laboratory results Abnormal [facility] Osmolality Calc [Osmolality] 313 High [facility] Potassium [Moles/Vol] 4.5 mmol/L 3.5 - 5.0 mmol/L [facility] Sodium [Moles/Vol] 141 mmol/L 135 - 145 mmol/L [facility] Urea nitrogen [Mass/Vol] 56 mg/dL High 7 - 25 mg/dL [facility] Urea nitrogen/Creatinine [Mass ratio] 41 mg/mg [facility] Anion gap [Moles/Vol] 15 mmol/L Normal 7-17 [facility] Comment on above: Performed By: #### T YPEC #### [facility] (DEFAULT) [address] [address] Chloride [Moles/Vol] 104 mmol/L Normal 98-108 [facility] Comment on above: Performed By: #### T YPEC #### [facility] (DEFAULT) [address] [address] CO2 [Moles/Vol] 27 mmol/L Normal 21-31 [facility] Comment on above: Performed By: #### T YPEC #### [facility] (DEFAULT) [address] [address] Creatinine [Mass/Vol] 1.36 mg/dL High 0.50-1.20 [facility] Comment on above: Performed By: #### T YPEC #### [facility] (DEFAULT) [address] [address] GFR/1.73 sq M.predicted among non-blacks MDRD (S/P/Bld) [Vol rate/Area] 40 mL/min/{1.73_m2} Low >=60 [facility] Comment on above: Result Comment: Repo rted eGFR is based on the CKD-EPI 2020 equation using creatinine, age, and sex. Performed By: #### T YPEC #### [facility] (DEFAULT) [address] [place] [address] Glucose [Mass/Vol] 126 mg/dL Normal Nonfastin -179 mg/dL; Fastin-99 [facility] Comment on above: Performed By: #### T YPEC #### [facility] (DEFAULT) [address] [place] [address] Osmolality [Osmolality] 313 mosm/kg High 278-305 [facility] Comment on above: Performed By: #### T YPEC #### [facility] (DEFAULT) [address] [place] [address]68 Potassium [Moles/Vol] 4.5 mmol/L Normal 3.5-5.0 [facility] Comment on above: Performed By: #### T YPEC #### [facility] (DEFAULT) [address] [place] [address]187 Sodium [Moles/Vol] 141 mmol/L Normal 135-145 [facility] Comment on above: Performed By: #### T YPEC #### [facility] (DEFAULT) [address] [place] [address]107 Urea nitrogen [Mass/Vol] 56 mg/dL High 7-25 [facility] Comment on above: Performed By: #### T YPEC #### [facility] (DEFAULT) [address] [place] [address] 89105 Urea nitrogen/Creatinine [Mass ratio] 41 mg/mg Normal [facility] Comment on above: Performed By: #### T YPEC #### [facility] (DEFAULT) [address] [place] [address]100 GLUCOSE POCon 08-12-2024 Glucose [Mass/Vol] 231 mg/dL High 70 - 179 mg/dL [facility] Interpretation and review of laboratory results Abnormal [facility] POC Sample Type CAPBL [facility] Glucose [Mass/Vol] 208 mg/dL High 70 - 179 mg/dL [facility] Interpretation and review of laboratory results Abnormal [facility] POC Sample Type CAPBL [facility] Glucose [Mass/Vol] 160 mg/dL 70 - 179 mg/dL [facility] POC Sample Type CAPBL [facility] Glucose [Mass/Vol] 107 mg/dL 70 - 179 mg/dL [facility] POC [facility]-2024 Interpretation and review of laboratory results Normal [facility] Magnesium [Mass/Vol] 2.2 mg/dL 1.6 - 2 .6 mg/dL [facility] Magnesium [Mass/Vol] 2.2 mg/dL Normal 1.6-2.6 [facility] Comment on above: Performed By: #### T YPEC #### [facility] (DEFAULT) [address] [place] [address] No Panel Informationon 08-12 [facility] SURG PATH REQUESTOrdered By: Renae Glez on 08-12-2024 Case Report [facility] Clinical History b1traPVfQVHprATqVGIv NVx adbNpLJOfjZXbZ8AdjkjnWM onLC2fMV4jzIzyyFStnRImT ZSzJnWxb5ecp400fLTgo0js UWKUnscqqRs2fVgeX98aq1I 0LcodB7xmFYZyYXomBKUiUS fkaTJsMWq4VBRxbOOjqnYqK aZuHMAncYTuaZA2IMPuSW2f zqyfDCnhKLjxCHHmxtM7LKQ vcVShR8QaJAFcSY1oopnqHI R8FKkwPGXcAOQ6FiPxNLVvn 7Wsffn6HjBuxEd9n4veJSXk OCXyjHqmx4nmAAZ4ISQxxJW dU7wkjY5xVYCtCH4pxffze6 qeWDwzWAzhTILuzOZ3kaA9O JUdeJViG5CisK1xDOOzTKIp goCzuCwuoE1oLaFwWShrJdH fYl3WBFjZSaPhHZSir3IbPK KuTNZPuJCarw2uvCJ5FKFFn 22lEwOiLURxoCKikTGLnHD6 x3N1UrOjMi0qbMAzyTGyyES tgBD6q5E2AYXrm1DaDNXbNp xwYXJ9 [facility] For Immediate Release to Patient's MyChart? Yes Yes [facility] Gross Description h9ukeVHePPCme9xpFEDh bGF uZzEwMzNcZnRuYmpcdWMxIH tccnRmMVxlcGljMTExMDVcY G9bxCiddCv0lZnpUIJmwoV4 mDOeNNddf2tzMBV6a9glfry sTGEsDGjxGp1rrBUfaDjsRe NpZVVrALf5uF82QYUhuX8fu OOmGBranaHeVCPjO6VdCY4c EAdolQCbNFG7gCwpLMIljxc mCaY9RKwaUJZahwwwXEu3UI evIBMebBC7ESFsoFGbP9NwK SDlKL7zxbv4HMZ1SQzbPNHu FcA4ONGhvKLrUKNasWlpEHj hq329CJI0QkToRESdfgClmD jpkW8aXzBrPRRTuVZwa6QnG 8qtEY7izFJehdUnMRz5POIr xG6kb77mHHSkc6Bbtik5WJz nImDyJCKdT67shUHpnpFoPL dpdGggdGhlIHBhdGllbnQnc oVqMF9qNSTiRWEqQ2Fma1Nq x83ltkSrLrTsQmPnkRAzSAT jkacdQqYnENnjNhIiZgu0AD IgVGhlIHNwZWNpbWVuIGlzI XEkb4ieybU7CRIwCmavl8Eg tEXfDNRlalBugDQfCI0cWZM dudBwt3HhCV1jYCZpotWkSf PvB20rnlHeJW1aXJDsub8vt L2mTFPfImKvySusi6HwJUTv qg4pTCJeFrF2iKH1vkOlObQ nJ87tjH7cU1LxWTZhw4FeGQ qiTL4zmT8jQsIvMHQvFSItv LUeJAFvglYCQXKgSFBpOS6w tGv7DFudAqhNEUivTtTcAYK 6LIOgec97ERO4OfOgn4T8BM SnWrNhOYYhPX1npSmgXMPzH F2iHSJnC7dfbQ1zywv3EkTg PCJlOeK9YEPifqN0Iyx9CJJ pTNsnb1sng8EaRYDxFOn8eZ lfGtOmDSQzw6czpqAqKrXcQ LWmAGArWRXrtURcR713y3ms w5azrmQynGF3VSHiYPH0RHn awwCejeA0NTxpbPQyPpN9IQ syegSyLZwgdoRysdLuUvx3W YWpI410ZAL4lVlom5olNVU0 VYShWIXnJfGlAd4fyRUoU76 1RVEkZBSSNBLnxCn0CQEqvf QnwbHiyHVYb969I633o2yrT ORnhvIpjImNqfmgb0aiF385 XHBhcGVydzEyMjQwXHBhcGV nuWD2LUGoJL5nzumiWQwrCT vdGJEsghV8ELRvcCZfS2ByU VOsYD9lfhqeBYC2LVowESSl JMG8YyClDVFmb2Xtatf0UnH rsl0yvi92OYM0k5XonYstXL M1VTX1KzFpKk1irXVzEPAtA Z8kCbXvdDFjDBWoui99uTwi GMqlgrBamL7tOeLcXBTtvRL vKYWpPX8sxAPrVNYytL6vbe xjXHBnYnJkcmhlYWRccGdic bFjBw5qcIxbKPK4HZqmE2tg jZ7hTmX5OVtoK7dqwZ8pMEi 3TLqnlRA9MQTgtJ7jDN3sjp yiq1hgHGvtZQrnVEQcfwJ2b oT0RQWipQYyL2TeyA1mPFPl TU5udagwv9piSLF1JXuaMMJ jPBK0SsPcFQXzc8Bxghl2Ue Ssz7HooQSeINnxH53xw489H BLkjxWhO2ncyFTieiplmKPp ktejBLdyuyD1GAEiFQMvMSp uXGYxXGZzMjJcbGFuZzEwMz NcaGljaFxmMVxkYmNoXGYxX CtcW9czObJdRcSpWuLIca3a v9DmSVAdjpA1pQmeVUTei8W ux5OvDcGAIKOvU3IwYO9fmQ KbWCHoex44 [facility] Microscopic Description k6ytrROvLNGeyJLb ZjIyMDA eMRAld5igPOJtrWWlInPrSd NcZnRuYmpcdWMxXGRlZmYwe 0rel688qGKja6dkMVRjTuN3 jJWuIFCnrWHeJ838INTmSBj ii3fig9DrZGQeiHRbg7J9ID NBmoxdxJs4eLwwH99yi5Y6R xdhI5ltIOBlLVFvG4WrBQ5n WIIsCby1GQB1HXB2CLEnBUK xO2VrRB6eOSCcoULrBRg8r9 oycTpxDQPjFLT0d3jiGJuow xYkON9cnw3roGe5w6inezDj PXWrNTHdvBQIASPsW0KmbCg kJi4ehDa2rWywMresYOK2Mu n1HS2hiw51xqa3mJfbHKKsx mtiFlB3KBteBNThawrzBWi1 XKesFUKeqMX4DTKjoMDoD9X nFNKcRN1glze3JVD8LDolCI GgAeJ1OPXvvATqFBHnxKqfL Crqz175QJC9DvAyQM6nK1Wu d9C8bD8rvHGwBNHnfTYiQtW zDCWjfn6zcHGwRGlat5VmNL I0ovP0eOLhzBAzKJHxUY65V uzwr1QbGhylNMV1EZLpzvAg m4Nty3osMuEmxiOjL2ejN4W yZHJoZWFkXHBnYnJkcmZvb3 Wmv0WykRKllCy9i8ciFADcA CBaqDlst9vgABI2TCRkC1Z5 uXBuq5haRGtcZNJksBY4upY 0ZOVssNNoL1MijO6lAGPsLK 1ckcx4r9qcRMQ4YPxwBEUhN gC8qbM8PDDwmPGlBFEdhZgn CZlfs870ZGQ0CyYaDKZvz7L vP8UmmJpgI41pmKssG84uRW RunVvhsX7uxXwnwB7qJdHdX nMyNFxxbFxwbGFpblxmMVxm oyEbVNgkncptJOScDIiwY4c hRaQgLXRexZqsJZoqx8BvYX NsVRLmGtMqDSHcnHPjy5Kus 1EcZcGapUFypT7kzJjiahN7 NEVbpFCyGa6wvBOgYqKrjDJ yfQ== [facility] Pathologic Diagnosis t6cxiKLlPLJtrBZkJEH wNVx yixHiVEOtdRPoG4CfvmxtNH lnPG3kGR1tfPebsEQsnNBjZ XNbVdFtg6oon156lXQml7cb WSGJfoboyDy7x2lpNACVyU4 rm0e3hA15WYQhjF8hjSMkKO weyyTuAZbklfIlfvRjTqm0U PJ2zHhgCnblkAP9iGZkqJB0 UOtyo3IabHrewMzsZQWyVLY dWZU1J8gwmCC6qUJrlByjvB UnWP5fo5mfjEE1kkVmCVL4p BrguKJ9iTcbeqwoq0lnvHT9 gCR5WNhjyHB8LQjpToSfM1a aGEZxwY0wY06mH6aoDNVyfT xnOOljDPNvuTW6FHD1JKJjo 1xsZXZlbHRleHRcJzAxXCdi Vcq5a3kgOMLnlJ71bRYylfN 7fVxmMVxmczIwXGxpMzYwXG ZpMTgwfXtcbGlzdGxldmVsX HxwecValpGoKuZeyCD8OSog GyJiKoFiwPX0BFicLfBcbYC 0OCyqvVVeiMF7KWttlXU8OQ g2GQp3YJdiVKdeHgx0dBuwh MW7GPmqcY4iTZUdH93uMzGz SnJzHX43HGqca5WdWVLttEd uTMHmtD6gUeSeNPjeegSorb ZjbjIzXGxldmVsamMwXGxld wAkb6KirwBmmCB0PNvlqnGo rRS8pFdoMFTlH6W9X424MNe ujfQmylCcZzElpan3ICTvZJ OvEsC2c2opxCH8yEP9SQpyw QX1RXuiCtEmT4rhXTUinR7m A53tY1bwXOUxcAdlVGhhJHK pqTF7UWI5WHBua3hnXEPteC NvaVCqThPhAKskNjb5m6ejY OCpnO33bSZsbxR3mKupDHvg czIwfXtcbGlzdGxldmVsXGx kmdMuhcFzIsQbmYS9SOgaLj FpNbMbkFL9XAusZjXyaJD6G TqcqGPyqWF8SBksdPF5HMx4 STq7MCswGXjpZlp5uUbpwGD 6FPrcfB3oHJCgK76kMoOaDk PoGO62TZkmr9LuWKDaoJjcA FDceX7qJwZfUOxcusDsicKe bjIzXGxldmVsamMwXGxldmV yl9OwgkCjsWI5XTdpusFxxU X5cMzdGIYiH9O6T372MNoaw bXsmoXhRrIzkyw7JZLbPKRq LvV4o2uyaWB9mDT8MWteoPJ 4UNlwNhNaU1ftWRNhjO6iE6 9xU5uxPSPdgSqgYDurCOYtf EI9MTH2FMEsq5dlSTMybYHw uIQpWgNoZJmaKvs4c9mpWAX svX71kNSobkV0mUtpPFfkzz IwfXtcbGlzdGxldmVsXGxld oNchuPkMnNhoHW9TSxeEdMi YlLblZZ3EXllRvSowYY4ZBu xpPSueQO7BScizRI0EKj2OT i7RBdqSEhcTgu0lSvryQI5G HtprT3zERCtL57gVcTsZuUt IX13KHwtj2UzAUNyeTkoGDF dmK8tQsArRVysmkAptoGvkb IzXGxldmVsamMwXGxldmVsc 2PkquLfkUV0QHnddhPtkKD4 pMavJVDfZ5D2R091FOwjcbK bwnQxXtNviwn7VHGyVSLoWi P7iO08WPlxsUmwtH69ANDhx FZymRHyjCJ2OAukrYxjqZ18 STDosXVlRGnmc8ZjXZSwVwF 5BqOdPNQrhPhhfW21HMTveQ PgM101umDoRIcfGS60CZVmv GVydzEyMjQwXHBhcGVyaDE1 RZTaIC4cttazWGaqNCitJTB ugnC8SZIwwIBoS4QpFRZmIN 4rhdpcLHP1UZapMPZgTPL2B jAfKCTqo7Pihjx7OkOakSMp BBnnpIRpjmoxETPlWmQqG8E lRYZcKOZ5u39eW9anGCHsa2 BzeTpccGFyXGxpMzYwXGZpM WodRGpxitS2OYqutuGbbZu9 sVZagJxbgY4dQdhxamJnOUD dHUXXl9CovLAvxk2ndI8lAL MbevWSreZEWJnzB30sKCS9B XGruCmhj0SjSEcbHF51gXJv ZWRccGFyfQ== [facility] Interpretation Performed at: u6ctvSAlDCMxuIQoQmMmXTW uJPXwv8zvQKZbnWEmDdHeNp NcZnRuYmpcdWMxXGRlZmYwe 8zpm539lBRty7wvSWYvIqF1 uVGgWRAbnOAdJ222QKCwZGu qt2ava5VcIYFbxJYum1H3DG SMhnehvDb6zKqcN70gw8F5Q varH5owVNEkUIJzL9ViNO5g ACGqMmw7YHY3ANB1AJLhROS mL6DyWQ3gOKOzaUTpOLm0o1 iekGesOAOxGEP2d6zfILfok rHaME3clg4tdGf1d0dqnqKz KNZzIPTrrEXUHAOqC9AyuVp pBf6nqIw3lZouTjrgADI2Oa g7WM5kvz80ubs1qEryFGRkd gexUeX7EGhkFPQbvgxwHCm7 CXquVCKbhDJ2WHGkiTDkO8Q xRUHiXL1imcj4MZO6JVnwJG UbQrX2JGIvnUHjXZLtpIsuL Opjp052MSN8QjHdBC8kQ3Vp c1D8dR8liEFxXBLtfTStKiZ fKEEpju1ayZEoMMcwx7UpOE Q6mgO1oQEwlKBzTMTcNE68U yvhy4SsFngjYPD9JRPjvdBz p9Cyq3iuPuRsovLdP2fwH9S yZHJoZWFkXHBnYnJkcmZvb3 Hpw7EceDMyoMb7j9nrETLvZ BZyqSxdx3bvKIG5KKIaA3Y9 uHYse0esJFvlZJXghTK0auO 8FTDknSKjT6VhjT3xWEUiTO 7qcvh0d8rkDSW8XBawWSKuT lO2ieT2USLivUGpZYAfqMgf ATnsg373VLD6JaSwJZPdw2O rL3RziYlmH56qmUnkQ86oNS YznKrtdZ2ulHwefL4sMhStK nMyNFxwYXJkXHBsYWluXGYx XGZzMjJcbGFuZzEwMzNcaGl jaFxmMVxkYmNoXGYxXGxvY2 hjKnBwZaEzMqRKG5TqP1RMJ wVWIO1WWSyLCZibL2SIIJOB HGACDX7BM6VZPHqLHf0WPLB YCslmnSSxZQIpRKQFMSU8LF DnpBphKDGiQAGdabVMc7s0y IB6yqrrK2wposD4XbQoEKnr YXJ9 [facility] CBC,PLATELETSon 08-11-2024 Erythrocyte distribution width (RBC) [Ratio] 13.7 % 10.8 - 14.9 % [facility] Hematocrit (Bld) [Volume fraction] 43.2 % 34.9 - 44.3 % [facility] Hemoglobin (Bld) [Mass/Vol] 14 g/dL 11.4 - 15.2 g/dL [facility] Interpretation and review of laboratory results Abnormal [facility] MCH (RBC) [Entitic mass] 29.9 pg 25.9 - 33.9 pg [facility] MCHC (RBC) [Mass/Vol] 32.4 g/dL 31.4 - 35.9 g/dL [facility] MCV (RBC) [Entitic vol] 92.1 fL 79.6 - 97.7 fL [facility] Platelet mean volume (Bld) [Entitic vol] 11.5 fL 8.5 - 12.2 fL [facility] Platelets (Bld) [#/Vol] 240 10*3/uL 150 - 393 K/uL [facility] RBC (Bld) [#/Vol] 4.69 10*6/uL [facility] WBC (Bld) [#/Vol] 11.76 10*3/uL High 3.99 - 11.19 K/uL [facility] Hematocrit (Bld) [Volume fraction] 43.2 % Normal 34.9-44.3 [facility] Comment on above: Performed By: #### T YPEC #### [facility] (DEFAULT) [address] [address] Hemoglobin (Bld) [Mass/Vol] 14.0 g/dL Normal 11.4-15.2 [facility] Comment on above: Performed By: #### T YPEC #### [facility] (DEFAULT) [address] [place] [address] MCV (RBC) [Entitic vol] 92.1 fL Normal 79.6-97.7 [facility] Comment on above: Performed By: #### T YPEC #### [facility] (DEFAULT) [address] [place] [address] Mean Cell Hgb 29.9 pg Normal 25.9-33.9 [facility] Comment on above: Performed By: #### T YPEC #### [facility] (DEFAULT) [address] [address] Mean Cell Hgb Conc 32.4 g/dL Normal 31.4-35.9 [facility] Comment on above: Performed By: #### T YPEC #### [facility] (DEFAULT) [address] [address] Platelet mean volume (Bld) [Entitic vol] 11.5 fL Normal 8.5-12.2 [facility] Comment on above: Performed By: #### T YPEC #### [facility] (DEFAULT) [address] [address] Platelets (Bld) [#/Vol] 240 10*3/uL Normal 150-393 [facility] Comment on above: Performed By: #### T YPEC #### [facility] (DEFAULT) [address] [address] RBC (Bld) [#/Vol] 4.69 10*6/uL Normal 3.91-5.04 [facility] Comment on above: Performed By: #### T YPEC #### [facility] (DEFAULT) [address] [address] RBC Distribution 13.7 % Normal 10.8-14.9 [facility] Comment on above: Performed By: #### T YPEC #### [facility] (DEFAULT) [address] [address] WBC (Bld) [#/Vol] 11.76 10*3/uL High 3.99-11.19 [facility] Comment on above: Performed By: #### T YPEC #### [facility] (DEFAULT) [address] [address] CHEM 7 (LYTES,BUN,CREA,GLUC) on 08-11-2024 Anion gap [Moles/Vol] 14 mmol/L 7 - 17 mmol/L [facility] Chloride [Moles/Vol] 103 mmol/L 98 - 10 8 mmol/L [facility] CO2 [Moles/Vol] 26 mmol/L 21 - 31 mmol/L [facility] Creatinine [Mass/Vol] 1.32 mg/dL High 0.50 - 1.20 mg/dL [facility] eGFR, CKD-EPI, Female 41 Low - PINF [facility] Glucose [Mass/Vol] 127 mg/dL 70 - 179 mg/dL [facility] Interpretation and review of laboratory results Abnormal [facility] Osmolality Calc [Osmolality] 306 High [facility] Potassium [Moles/Vol] 4.6 mmol/L 3.5 - 5.0 mmol/L [facility] Sodium [Moles/Vol] 138 mmol/L 135 - 145 mmol/L [facility] Urea nitrogen [Mass/Vol] 53 mg/dL High 7 - 25 mg/dL [facility] Urea nitrogen/Creatinine [Mass ratio] 40 mg/mg [facility] Anion gap [Moles/Vol] 14 mmol/L Normal 7-17 [facility] Comment on above: Performed By: #### [facility] #### [facility] (DEFAULT) [address] [address] Chloride [Moles/Vol] 103 mmol/L Normal 98-108 [facility] Comment on above: Performed By: #### [facility] #### [facility] (DEFAULT) [address] [place] [address] CO2 [Moles/Vol] 26 mmol/L Normal 21-31 [facility] Comment on above: Performed By: #### [facility] #### [facility] (DEFAULT) [address] [place] [address] Creatinine [Mass/Vol] 1.32 mg/dL High 0.50-1.20 [facility] Comment on above: Performed By: #### [facility] #### [facility] (DEFAULT) [address] [place] [address] GFR/1.73 sq M.predicted among non-blacks MDRD (S/P/Bld) [Vol rate/Area] 41 mL/min/{1.73_m2} Low >=60 [facility] Comment on above: Result Comment: Repo rted eGFR is based on the CKD-EPI 2020 equation using creatinine, age, and sex. Performed By: #### H EMOGC #### [facility] (DEFAULT) [address] [place] [address] Glucose [Mass/Vol] 127 mg/dL Normal Nonfastin -179 mg/dL; Fastin-99 [facility] Comment on above: Performed By: #### H EMOGC #### [facility] (DEFAULT) [address] [place] [address] Osmolality [Osmolality] 306 mosm/kg High 278-305 [facility] Comment on above: Performed By: #### H EMOGC #### [facility] (DEFAULT) [address] [place] [address] Potassium [Moles/Vol] 4.6 mmol/L Normal 3.5-5.0 [facility] Comment on above: Performed By: #### H EMOGC #### [facility] (DEFAULT) [address] [place] [address] Sodium [Moles/Vol] 138 mmol/L Normal 135-145 [facility] Comment on above: Performed By: #### H EMOGC #### [facility] (DEFAULT) [address] [place] [address] Urea nitrogen [Mass/Vol] 53 mg/dL High 7-25 [facility] Comment on above: Performed By: #### H EMOGC #### [facility] (DEFAULT) [address] [place] [address] Urea nitrogen/Creatinine [Mass ratio] 40 mg/mg Normal [facility] Comment on above: Performed By: #### H EMOGC #### [facility] (DEFAULT) [address] [place] [address] GLUCOSE POCon 08-11-2024 Glucose [Mass/Vol] 213 mg/dL High 70 - 179 mg/dL [facility] Interpretation and review of laboratory results Abnormal [facility] POC Sample Type [facility] Glucose [Mass/Vol] 255 mg/dL High 70 - 179 mg/dL [facility] Interpretation and review of laboratory results Abnormal [facility] POC Sample Type CAPBL [facility] Glucose [Mass/Vol] 190 mg/dL High 70 - 179 mg/dL [facility] Interpretation and review of laboratory results Abnormal [facility] POC Sample Type CAPBL [facility] Glucose [Mass/Vol] 205 mg/dL High 70 - 179 mg/dL [facility] Interpretation and review of laboratory results Abnormal [facility] POC Sample Type CAPBL [facility] MAGNESIUMon 08-11-2024 Interpretation and review of laboratory results Normal [facility] Magnesium [Mass/Vol] 1.9 mg/dL 1.6 - 2 .6 mg/dL [facility] Magnesium [Mass/Vol] 1.9 mg/dL Normal 1.6-2.6 [facility] Comment on above: Performed By: #### M , [facility] #### [facility] (DEFAULT) [address] [place] [address] No Panel Informationon 08-11 [facility] BLOOD CULTUREon 08-10-2024 Bacteria identified Cx Nom (Unsp spec) NO GROWTH DAY 5 OF 5 Normal [facility] Comment on above: Order Comment: 2 [...] bottle. Performed By: #### T YPEC #### [facility] (DEFAULT) [address] [place] [address] Bacteria identified Cx Nom (Unsp spec) NO GROWTH DAY 5 OF 5 Normal [facility] Comment on above: Order Comment: 2 [...] bottle. Performed By: #### B LDCULT #### [facility] (DEFAULT) [address] [place] [address] CBC,PLATELETSon 08-10-2024 Erythrocyte distribution width (RBC) [Ratio] 13.3 % 10.8 - 14.9 % [facility] Hematocrit (Bld) [Volume fraction] 45.1 % High 34.9 - 44.3 % [facility] Hemoglobin (Bld) [Mass/Vol] 14.1 g/dL 11.4 - 15.2 g/dL [facility] Interpretation and review of laboratory results Abnormal [facility] MCH (RBC) [Entitic mass] 29.1 pg 25.9 - 33.9 pg [facility] MCHC (RBC) [Mass/Vol] 31.3 g/dL Low 31.4 - 35.9 g/dL [facility] MCV (RBC) [Entitic vol] 93 fL 79.6 - 97.7 fL [facility] Platelet mean volume (Bld) [Entitic vol] 11.4 fL 8.5 - 12.2 fL [facility] Platelets (Bld) [#/Vol] 216 10*3/uL 150 - 393 K/uL [facility] RBC (Bld) [#/Vol] 4.85 10*6/uL [facility] WBC (Bld) [#/Vol] 13.78 10*3/uL High 3.99 - 11.19 K/uL [facility] Hematocrit (Bld) [Volume fraction] 45.1 % High 34.9-44.3 [facility] Comment on above: Performed By: #### H EMOGC #### [facility] (DEFAULT) [address] [place] [address] Hemoglobin (Bld) [Mass/Vol] 14.1 g/dL Normal 11.4-15.2 [facility] Comment on above: Performed By: #### H EMOGC #### [facility] (DEFAULT) [address] [address] MCV (RBC) [Entitic vol] 93.0 fL Normal 79.6-97.7 [facility] Comment on above: Performed By: #### H EMOGC #### [facility] (DEFAULT) [address] [address] Mean Cell Hgb 29.1 pg Normal 25.9-33.9 [facility] Comment on above: Performed By: #### H EMOGC #### [facility] (DEFAULT) [address] [address] Mean Cell Hgb Conc 31.3 g/dL Low 31.4-35.9 [facility] Comment on above: Performed By: #### H EMOGC #### [facility] (DEFAULT) [address] [place] [address] Platelet mean volume (Bld) [Entitic vol] 11.4 fL Normal 8.5-12.2 [facility] Comment on above: Performed By: #### H EMOGC #### [facility] (DEFAULT) [address] [address] Platelets (Bld) [#/Vol] 216 10*3/uL Normal 150-393 [facility] Comment on above: Performed By: #### [facility] #### [facility] (DEFAULT) [address] [place] [address] RBC (Bld) [#/Vol] 4.85 10*6/uL Normal 3.91-5.04 [facility] Comment on above: Performed By: #### H EMO #### [facility] (DEFAULT) [address] [place] [address] RBC Distribution 13.3 % Normal 10.8-14.9 [facility] Comment on above: Performed By: #### [facility] #### [facility] (DEFAULT) [address] [place] [address] WBC (Bld) [#/Vol] 13.78 10*3/uL High 3.99-11.19 [facility] Comment on above: Performed By: #### [facility] #### [facility] (DEFAULT) [address] [place] [address] CHEM 7 (LYTES,BUN,CREA,GLUC) on 08-10-2024 Anion gap [Moles/Vol] 16 mmol/L 7 - 17 mmol/L [facility] Chloride [Moles/Vol] 103 mmol/L 98 - 10 8 mmol/L [facility] CO2 [Moles/Vol] 24 mmol/L 21 - 31 mmol/L [facility] Creatinine [Mass/Vol] 1.36 mg/dL High 0.50 - 1.20 mg/dL [facility] eGFR, CKD-EPI, Female 40 Low - PINF [facility] Glucose [Mass/Vol] 186 mg/dL High 70 - 179 mg/dL [facility] Interpretation and review of laboratory results Abnormal [facility] Osmolality Calc [Osmolality] 308 High [facility] Potassium [Moles/Vol] 4.9 mmol/L 3.5 - 5.0 mmol/L [facility] Sodium [Moles/Vol] 138 mmol/L 135 - 145 mmol/L [facility] Urea nitrogen [Mass/Vol] 47 mg/dL High 7 - 25 mg/dL [facility] Urea nitrogen/Creatinine [Mass ratio] 35 mg/mg [facility] Anion gap [Moles/Vol] 16 mmol/L Normal 7-17 [facility] Comment on above: Performed By: #### HEYDI PALACIOS7 ####[facility] (DEFAULT)[address] [place] [address] Chloride [Moles/Vol] 103 mmol/L Normal 98-108 [facility] Comment on above: Performed By: #### HEYDI PALACIOS7 ####[facility] (DEFAULT)[address] [place] [address] CO2 [Moles/Vol] 24 mmol/L Normal 21-31 [facility] Comment on above: Performed By: #### HEYDI PALACIOS7 ####[facility] (DEFAULT)[address] [place] [address] Creatinine [Mass/Vol] 1.36 mg/dL High 0.50-1.20 [facility] Comment on above: Performed By: #### HEYDI PALACIOS7 ####[facility] (DEFAULT)[address] [place] [address] GFR/1.73 sq M.predicted among non-blacks MDRD (S/P/Bld) [Vol rate/Area] 40 mL/min/{1.73_m2} Low >=60 [facility] Comment on above: Result Comment: Repo rted eGFR is based on the CKD-EPI 2020 equation using creatinine, age, and sex. Performed By: #### HEYDI PALACIOS7 ####[facility] (DEFAULT)[address] [place] [address] Glucose [Mass/Vol] 186 mg/dL High Nonfastin -179 mg/dL; Fastin-99 [facility] Comment on above: Performed By: #### HEYDI PALACIOS7 ####[facility] (DEFAULT)[address] [place] [address] Osmolality [Osmolality] 308 mosm/kg High 278-305 [facility] Comment on above: Performed By: #### Jaiden NGUYEN CHM7 ####[facility] (DEFAULT)[address] [place] [address] Potassium [Moles/Vol] 4.9 mmol/L Normal 3.5-5.0 [facility] Comment on above: Performed By: #### M WENDY CHM7 ####[facility] (DEFAULT)[address] [place] [address] Sodium [Moles/Vol] 138 mmol/L Normal 135-145 [facility] Comment on above: Performed By: #### Jaiden NGUYEN CHM7 ####[facility] (DEFAULT)[address] [place] [address] Urea nitrogen [Mass/Vol] 47 mg/dL High 7-25 [facility] Comment on above: Performed By: #### Jaiden NGUYEN CHM7 ####[facility] (DEFAULT)[address] [place] [address] Urea nitrogen/Creatinine [Mass ratio] 35 mg/mg Normal [facility] Comment on above: Performed By: #### Jaiden NGUYEN CHM7 ####[facility] (DEFAULT)[address] [place] [address] GLUCOSE POCon 08-10-2024 Glucose [Mass/Vol] 144 mg/dL 70 - 179 mg/dL [facility] POC Sample Type CAPBL [facility] Glucose [Mass/Vol] 177 mg/dL 70 - 179 mg/dL [facility] POC Sample Type [facility] Glucose [Mass/Vol] 180 mg/dL High 70 - 179 mg/dL [facility] Interpretation and review of laboratory results Abnormal [facility] POC Sample Type CAPBL [facility] Glucose [Mass/Vol] 193 mg/dL High 70 - 179 mg/dL [facility] Interpretation and review of laboratory results Abnormal [facility] POC Sample Type CAPBL [facility] Glucose [Mass/Vol] 200 mg/dL High 70 - 179 mg/dL [facility] Interpretation and review of laboratory results Abnormal [facility] POC Sample Type CAPBL [facility] Glucose [Mass/Vol] 198 mg/dL High 70 - 179 mg/dL [facility] Interpretation and review of laboratory results Abnormal [facility] POC Sample Type CAPBL [facility] MAGNESIUMon 08-10-2024 Interpretation and review of laboratory results Normal [facility] Magnesium [Mass/Vol] 1.8 mg/dL 1.6 - 2 .6 mg/dL [facility] Magnesium [Mass/Vol] 1.8 mg/dL Normal 1.6-2.6 [facility] Comment on above: Performed By: #### M , [facility] ####[facility] (DEFAULT)[address] [place] [address] No Panel Informationon 08-10 [facility] URINE CULTUREOrdered By: Franklin Carcamo on 08-10-2024 Bacteria identified Cx Nom (Unsp spec) Growth [facility] Bacteria identified Cx Nom (Unsp spec) KLEBSIELLA PNEUMONIAE Abnormal [facility] Interpretation and review of laboratory results Abnormal [facility] CBC,PLATELETSon 08-09-2024 Erythrocyte distribution width (RBC) [Ratio] 13.5 % 10.8 - 14.9 % [facility] Hematocrit (Bld) [Volume fraction] 44.4 % High 34.9 - 44.3 % [facility] Hemoglobin (Bld) [Mass/Vol] 14.1 g/dL 11.4 - 15.2 g/dL [facility] Interpretation and review of laboratory results Abnormal [facility] MCH (RBC) [Entitic mass] 29.4 pg 25.9 - 33.9 pg [facility] MCHC (RBC) [Mass/Vol] 31.8 g/dL 31.4 - 35.9 g/dL [facility] MCV (RBC) [Entitic vol] 92.7 fL 79.6 - 97.7 fL [facility] Platelet mean volume (Bld) [Entitic vol] 11.5 fL 8.5 - 12.2 fL [facility] Platelets (Bld) [#/Vol] 226 10*3/uL 150 - 393 K/uL [facility] RBC (Bld) [#/Vol] 4.79 10*6/uL [facility] WBC (Bld) [#/Vol] 12.37 10*3/uL High 3.99 - 11.19 K/uL [facility] Hematocrit (Bld) [Volume fraction] 44.4 % High 34.9-44.3 [facility] Comment on above: Performed By: #### [facility] #### [facility] (DEFAULT) [address] [place] [address] Hemoglobin (Bld) [Mass/Vol] 14.1 g/dL Normal 11.4-15.2 [facility] Comment on above: Performed By: #### [facility] #### [facility] (DEFAULT) [address] [place] [address] MCV (RBC) [Entitic vol] 92.7 fL Normal 79.6-97.7 [facility] Comment on above: Performed By: #### [facility] #### [facility] (DEFAULT) [address] [place] [address] Mean Cell Hgb 29.4 pg Normal 25.9-33.9 [facility] Comment on above: Performed By: #### H EMO #### [facility] (DEFAULT) [address] [address] Mean Cell Hgb Conc 31.8 g/dL Normal 31.4-35.9 [facility] Comment on above: Performed By: #### H EMOGC #### [facility] (DEFAULT) [address] [address] Platelet mean volume (Bld) [Entitic vol] 11.5 fL Normal 8.5-12.2 [facility] Comment on above: Performed By: #### H EMOGC #### [facility] (DEFAULT) [address] [address] Platelets (Bld) [#/Vol] 226 10*3/uL Normal 150-393 [facility] Comment on above: Performed By: #### H EMOGC #### [facility] (DEFAULT) [address] [address] RBC (Bld) [#/Vol] 4.79 10*6/uL Normal 3.91-5.04 [facility] Comment on above: Performed By: #### H EMOGC #### [facility] (DEFAULT) [address] [address] RBC Distribution 13.5 % Normal 10.8-14.9 [facility] Comment on above: Performed By: #### H EMOGC #### [facility] (DEFAULT) [address] [address] WBC (Bld) [#/Vol] 12.37 10*3/uL High 3.99-11.19 [facility] Comment on above: Performed By: #### H EMOGC #### [facility] (DEFAULT) [address] [address] CHEM 7 (LYTES,BUN,CREA,GLUC) on 08-09-2024 Anion gap [Moles/Vol] 14 mmol/L 7 - 17 mmol/L [facility] Chloride [Moles/Vol] 103 mmol/L 98 - 10 8 mmol/L [facility] CO2 [Moles/Vol] 26 mmol/L 21 - 31 mmol/L [facility] Creatinine [Mass/Vol] 1.35 mg/dL High 0.50 - 1.20 mg/dL [facility] eGFR, CKD-EPI, Female 40 Low - PINF [facility] Glucose [Mass/Vol] 182 mg/dL High 70 - 179 mg/dL [facility] Interpretation and review of laboratory results Abnormal [facility] Osmolality Calc [Osmolality] 305 [facility] Potassium [Moles/Vol] 4.9 mmol/L 3.5 - 5.0 mmol/L [facility] Sodium [Moles/Vol] 138 mmol/L 135 - 145 mmol/L [facility] Urea nitrogen [Mass/Vol] 38 mg/dL High 7 - 25 mg/dL [facility] Urea nitrogen/Creatinine [Mass ratio] 28 mg/mg [facility] Anion gap [Moles/Vol] 14 mmol/L Normal 7-17 [facility] Comment on above: Performed By: #### [facility] #### [facility] (DEFAULT) [address] [address] Chloride [Moles/Vol] 103 mmol/L Normal 98-108 [facility] Comment on above: Performed By: #### [facility] #### [facility] (DEFAULT) [address] [place] [address] CO2 [Moles/Vol] 26 mmol/L Normal 21-31 [facility] Comment on above: Performed By: #### [facility] #### [facility] (DEFAULT) [address] [place] [address] Creatinine [Mass/Vol] 1.35 mg/dL High 0.50-1.20 [facility] Comment on above: Performed By: #### [facility] #### [facility] (DEFAULT) [address] [place] [address] GFR/1.73 sq M.predicted among non-blacks MDRD (S/P/Bld) [Vol rate/Area] 40 mL/min/{1.73_m2} Low >=60 [facility] Comment on above: Result Comment: Repo rted eGFR is based on the CKD-EPI 2020 equation using creatinine, age, and sex. Performed By: #### H EMOGC #### [facility] (DEFAULT) [address] [place] [address] Glucose [Mass/Vol] 182 mg/dL High Nonfastin -179 mg/dL; [facility] Comment on above: Performed By: #### H EMOGC #### [facility] (DEFAULT) [address] [place] [address] Osmolality [Osmolality] 305 mosm/kg Normal 278-305 [facility] Comment on above: Performed By: #### H EMOGC #### U [facility] (DEFAULT) [address] [place] [address] Potassium [Moles/Vol] 4.9 mmol/L Normal 3.5-5.0 [facility] Comment on above: Performed By: #### H EMOGC #### [facility] (DEFAULT) [address] [place] [address] Sodium [Moles/Vol] 138 mmol/L Normal 135-145 [facility] Comment on above: Performed By: #### H EMOGC #### U [facility] (DEFAULT) [address] [place] [address] Urea nitrogen [Mass/Vol] 38 mg/dL High 7-25 [facility] Comment on above: Performed By: #### H EMOGC #### [facility] (DEFAULT) [address] [place] [address] Urea nitrogen/Creatinine [Mass ratio] 28 mg/mg Normal [facility] Comment on above: Performed By: #### H EMOGC #### U [facility] (DEFAULT) [address] [place] [address] EXTRA MICROon 08-09-2024 [facility] GLUCOSE POCon 08-09-2024 Glucose [Mass/Vol] 186 mg/dL High 70 - 179 mg/dL [facility] Interpretation and review of laboratory results Abnormal [facility] POC Sample Type CAPBL [facility] Glucose [Mass/Vol] 255 mg/dL High 70 - 179 mg/dL [facility] Interpretation and review of laboratory results Abnormal [facility] POC Sample Type CAPBL [facility] Glucose [Mass/Vol] 235 mg/dL High 70 - 179 mg/dL [facility] Interpretation and review of laboratory results Abnormal [facility] POC Sample Type CAPBL [facility] Glucose [Mass/Vol] 167 mg/dL 70 - 179 mg/dL [facility] POC Sample Type CAPBL [facility] INTERVENTIONAL UPPER ENDOSCO PYon 08-09-2024 Body surface area Derived from formula 1.9 m2 [facility] LAB, [facility] Radiology Study observation (narrative) [facility] MAGNESIUMon 08-09-2024 Interpretation and review of laboratory results Normal [facility] Magnesium [Mass/Vol] 1.8 mg/dL 1.6 - 2 .6 mg/dL [facility] Magnesium [Mass/Vol] 1.8 mg/dL Normal 1.6-2.6 [facility] Comment on above: Performed By: #### H [facility] #### [facility] (DEFAULT) [address] [place] [address] No Panel Informationon 08-09 [facility] PT,INR,PTTon 08-09-2024 aPTT Coag (PPP) [Time] 38.4 s High [facility] INR Coag (Bld) [Relative time] 1 {INR} 0.9 - 1.1 [facility] Interpretation and review of laboratory results Abnormal [facility] PT Coag (PPP) [Time] [address] [facility] aPTT Coag (Bld) [Time] 38.4 s High 24.0-34.3 [facility] Comment on above: Performed By: #### B LDCULT #### [facility] (DEFAULT) [address] [address] INR Coag (PPP) [Relative time] 1.0 {INR} Normal 0.9-1.1 [facility] Comment on above: Performed By: #### B LDCULT #### [facility] (DEFAULT) [address] [address] PT Coag (PPP) [Time] 13.0 s Normal 11.9-14.2 [facility] Comment on above: Performed By: #### B LDCULT #### [facility] (DEFAULT) [address] [address] SURG PATH REQUESTon 08-10-19 Case Report [facility] Comment on above: Result Comment: Surg ical Pathology Report Case: [id number] Authorizing Provider: Judson Keith DO Collected: 08/09/2024 10:07 AM Ordering Location: [facility] Received: 08/09/2024 12:13 PM Pathologist: Renae Glez MD Specimen: STOMACH, gastric, r/o HP Performed By: #### S URGP #### [facility] (DEFAULT) [address] [address] Clinical History R/O HP. Associated Diagnosis: None. Medical History: No medical history provided. Normal [facility] Comment on above: Performed By: #### S URGP #### [facility] (DEFAULT) [address] [address] Gross Description [facility] Comment on above: Result Comment: The specimen is received in one properly labeled container with the patient's name and accession number. A. The specimen is designated "gastric, r/o hp" and consists of five fragments of jackson-pink soft tissue, from 0.2 up to 0.6 cm in greatest dimension. TE 1 Lab Use Only: JobID [id number] Grosser for this case was: Sunshine Hidalgo Performed By: #### S URGP #### [facility] (DEFAULT) [address] [place] [address] Microscopic Description A microscopic examination was performed. [facility] Comment on above: Performed By: #### S URGP #### [facility] (DEFAULT) [address] [place] [address] Pathologic Diagnosis [facility] Comment on above: Result Comment: Anjelica echols, biopsy: Focal erosion No Helicobacter pylori identified at 1005 EDT Performed By: #### S URGP #### [facility] (DEFAULT) [address] [address] Professional Interpretation Performed at: [facility] Comment on above: Result Comment: [facility] For Immediate Release to Patient's [facility] Yes [address] [place] [address] Performed By: #### S URGP #### [facility] (DEFAULT) [address] [address] CBC,PLATELETSon 08-08-2024 Erythrocyte distribution width (RBC) [Ratio] 13.6 % 10.8 - 14.9 % [facility] Hematocrit (Bld) [Volume fraction] 45.7 % High 34.9 - 44.3 % [facility] Hemoglobin (Bld) [Mass/Vol] 14.4 g/dL 11.4 - 15.2 g/dL [facility] Interpretation and review of laboratory results Abnormal [facility] MCH (RBC) [Entitic mass] 29.4 pg 25.9 - 33.9 pg [facility] MCHC (RBC) [Mass/Vol] 31.5 g/dL 31.4 - 35.9 g/dL [facility] MCV (RBC) [Entitic vol] 93.3 fL 79.6 - 97.7 fL [facility] Platelet mean volume (Bld) [Entitic vol] 10.9 fL 8.5 - 12.2 fL [facility] Platelets (Bld) [#/Vol] 212 10*3/uL 150 - 393 K/uL [facility] RBC (Bld) [#/Vol] 4.9 10*6/uL [facility] WBC (Bld) [#/Vol] 10.39 10*3/uL 3.99 - 11.19 K/uL [facility] Hematocrit (Bld) [Volume fraction] 45.7 % High 34.9-44.3 [facility] Comment on above: Performed By: #### H [facility] #### [facility] (DEFAULT) [address] [place] [address] Hemoglobin (Bld) [Mass/Vol] 14.4 g/dL Normal 11.4-15.2 [facility] Comment on above: Performed By: #### H EMO #### [facility] (DEFAULT) [address] [place] [address] MCV (RBC) [Entitic vol] 93.3 fL Normal 79.6-97.7 [facility] Comment on above: Performed By: #### H EMO #### [facility] (DEFAULT) [address] [place] [address] Mean Cell Hgb 29.4 pg Normal 25.9-33.9 [facility] Comment on above: Performed By: #### H EMO #### [facility] (DEFAULT) [address] [place] [address] Mean Cell Hgb Conc 31.5 g/dL Normal 31.4-35.9 [facility] Comment on above: Performed By: #### H EMOGC #### U [facility] (DEFAULT) [address] [place] [address] Platelet mean volume (Bld) [Entitic vol] 10.9 fL Normal 8.5-12.2 [facility] Comment on above: Performed By: #### H EMOGC #### [facility] (DEFAULT) [address] [place] [address] Platelets (Bld) [#/Vol] 212 10*3/uL Normal 150-393 [facility] Comment on above: Performed By: #### H EMO #### [facility] (DEFAULT) [address] [place] [address] RBC (Bld) [#/Vol] 4.90 10*6/uL Normal 3.91-5.04 [facility] Comment on above: Performed By: #### H EMO #### [facility] (DEFAULT) [address] [place] [address] RBC Distribution 13.6 % Normal 10.8-14.9 [facility] Comment on above: Performed By: #### H EMOGC #### [facility] (DEFAULT) [address] [place] [address] WBC (Bld) [#/Vol] 10.39 10*3/uL Normal 3.99-11.19 [facility] Comment on above: Performed By: #### H EMOGC #### [facility] (DEFAULT) [address] [place] [address] CHEM 7 (LYTES,BUN,CREA,GLUC) on 08-08-2024 Anion gap [Moles/Vol] 15 mmol/L 7 - 17 mmol/L [facility] Chloride [Moles/Vol] 104 mmol/L 98 - 10 8 mmol/L [facility] CO2 [Moles/Vol] 25 mmol/L 21 - 31 mmol/L [facility] Creatinine [Mass/Vol] 1.15 mg/dL 0.50 - 1.20 mg/dL [facility] eGFR, CKD-EPI, Female 48 Low - PINF [facility] Glucose [Mass/Vol] 111 mg/dL 70 - 179 mg/dL [facility] Interpretation and review of laboratory results Abnormal [facility] Osmolality Calc [Osmolality] 302 [facility] Potassium [Moles/Vol] 4.3 mmol/L 3.5 - 5.0 mmol/L [facility] Sodium [Moles/Vol] 140 mmol/L 135 - 145 mmol/L [facility] Urea nitrogen [Mass/Vol] 35 mg/dL High 7 - 25 mg/dL [facility] Urea nitrogen/Creatinine [Mass ratio] 30 mg/mg [facility] Anion gap [Moles/Vol] 15 mmol/L Normal 7-17 [facility] Comment on above: Performed By: #### HEYDI PALACIOS7 ####[facility] (DEFAULT)[address] [place] [address] Chloride [Moles/Vol] 104 mmol/L Normal 98-108 [facility] Comment on above: Performed By: #### HEYDI PALACIOS7 ####[facility] (DEFAULT)[address] [place] [address] CO2 [Moles/Vol] 25 mmol/L Normal 21-31 [facility] Comment on above: Performed By: #### HEYDI PALACIOS7 ####[facility] (DEFAULT)[address] [place] [address] Creatinine [Mass/Vol] 1.15 mg/dL Normal 0.50-1.20 [facility] Comment on above: Performed By: #### HEYDI PALACIOS7 ####[facility] (DEFAULT)[address] [place] [address] GFR/1.73 sq M.predicted among non-blacks MDRD (S/P/Bld) [Vol rate/Area] 48 mL/min/{1.73_m2} Low >=60 [facility] Comment on above: Result Comment: Repo rted eGFR is based on the CKD-EPI 2020 equation using creatinine, age, and sex. Performed By: #### HEYDI PALACIOS7 ####U [facility] (DEFAULT)[address] [place] [address] Glucose [Mass/Vol] 111 mg/dL Normal Nonfastin -179 mg/dL; Fastin-99 [facility] Comment on above: Performed By: #### HEYDI PALACIOS7 ####[facility] (DEFAULT)[address] [place] [address] Osmolality [Osmolality] 302 mosm/kg Normal 278-305 [facility] Comment on above: Performed By: #### Jaiden NGUYEN CHJaiden7 ####U [facility] (DEFAULT)[address] [place] [address] Potassium [Moles/Vol] 4.3 mmol/L Normal 3.5-5.0 [facility] Comment on above: Performed By: #### HEYDI PALACIOS7 ####U [facility] (DEFAULT)[address] [place] [address] Sodium [Moles/Vol] 140 mmol/L Normal 135-145 [facility] Comment on above: Performed By: #### Jaiden NGUYEN CHM7 ####U [facility] (DEFAULT)[address] [place] [address] Urea nitrogen [Mass/Vol] 35 mg/dL High 7-25 [facility] Comment on above: Performed By: #### Jaiden NGUYEN CHM7 ####U [facility] (DEFAULT)[address] [place] [address] Urea nitrogen/Creatinine [Mass ratio] 30 mg/mg Normal [facility] Comment on above: Performed By: #### Jaiden NGUYEN CHM7 ####[facility] (DEFAULT)[address] [place] [address] CT HEAD WITHOUT CONTRASTon 0 08-08-2024 CT [...] have reviewed and approved this report. Normal [facility] CT Head WO contraston 2024 RADIOLOGY RADIOLOGY [facility] Radiology Study observation (narrative) [facility] GLUCOSE POCon 08-08-2024 Glucose [Mass/Vol] 150 mg/dL 70 - 179 mg/dL [facility] POC Sample Type CAPBL [facility] Glucose [Mass/Vol] 148 mg/dL 70 - 179 mg/dL [facility] Glucose [Mass/Vol] 192 mg/dL High 70 - 179 mg/dL [facility] Interpretation and review of laboratory results Abnormal [facility] POC Sample Type CAPBL [facility] Glucose [Mass/Vol] 198 mg/dL High 70 - 179 mg/dL [facility] Interpretation and review of laboratory results Abnormal [facility] POC Sample Type CAPBL [facility] Glucose [Mass/Vol] 186 mg/dL High 70 - 179 mg/dL [facility] Interpretation and review of laboratory results Abnormal [facility] POC Sample Type CAPBL [facility] MAGNESIUMon 08-08-2024 Interpretation and review of laboratory results Normal [facility] Magnesium [Mass/Vol] 1.7 mg/dL 1.6 - 2 .6 mg/dL [facility] Magnesium [Mass/Vol] 1.7 mg/dL Normal 1.6-2.6 [facility] Comment on above: Performed By: #### M [facility] ####[facility] (DEFAULT)[address] [place] [address] No Panel Informationon 08-08 [facility] URINALYSIS REFLEX TO CULTURE PERFORMABLEOrdered By: Danya Yates on 08-08-2024 Appearance (U) Cloudy Abnormal Clear [facility] Bacteria LM Ql (Urine sed) PRESENT Abnormal ABSENT [facility] Color (U) Yellow Yellow [facility] Epithelial cells.squamous LM Ql (Urine sed) 0-2/hpf 0-2/hpf, 3-5/hpf = 1+ [facility] Glucose Test strip (U) [Mass/Vol] Negative Negative [facility] Interpretation and review of laboratory results Abnormal [facility] Ketones (U) [Mass/Vol] Trace Abnormal Negative [facility] Leukocyte esterase Test strip Ql (U) Large Abnormal Negative [facility] Nitrite Ql (U) Positive Abnormal Negative [facility] pH (U) 7.0 [pH] 5.0 - 7.0 [facility] Protein (U) [Mass/Vol] Trace Abnormal Negative [facility] RBC (U) [#/Vol] Trace Abnormal Negative [facility] RBC LM.HPF (Urine sed) [#/Area] 6-10 Abnormal [facility] Specific gravity (U) [Rel density] 1.023 1.001 - 1.035 [facility] Urobilinogen (U) [Mass/Vol] 1.0 E.U./dL 0.2 E.U/dL, 1.0 E.U/dL [facility] WBC LM.HPF (Urine sed) [#/Area] /[HPF] Abnormal [facility] URINALYSIS REFLEX TO CULTURE PERFORMABLEon 08-08-2024 Appearance (U) Cloudy Abnormal Clear [facility] Comment on above: Order Comment: For i ndwelling catheters, specimen collection is acceptable on catheter day 1 and 2 only. ? Performed By: #### T YPEC #### [facility] (DEFAULT) [address] [address] Bacteria PRESENT Abnormal ABSENT [facility] Comment on above: Order Comment: For i ndwelling catheters, specimen collection is acceptable on catheter day 1 and 2 only. ? Performed By: #### T YPEC #### [facility] (DEFAULT) [address] [address] Blood Urine Trace Abnormal Negative [facility] Comment on above: Order Comment: For i ndwelling catheters, specimen collection is acceptable on catheter day 1 and 2 only. ? Performed By: #### T YPEC #### [facility] (DEFAULT) [address] [address] Color (U) Yellow Normal Yellow [facility] Comment on above: Order Comment: For i ndwelling catheters, specimen collection is acceptable on catheter day 1 and 2 only. ? Performed By: #### T YPEC #### [facility] (DEFAULT) [address] [place] [address] Glucose Ql (U) Negative Normal Negative [facility] Comment on above: Order Comment: For i ndwelling catheters, specimen collection is acceptable on catheter day 1 and 2 only. ? Performed By: #### T YPEC #### [facility] (DEFAULT) [address] [place] [address] Ketones Ql (U) Trace Abnormal Negative [facility] Comment on above: Order Comment: For i ndwelling catheters, specimen collection is acceptable on catheter day 1 and 2 only. ? Performed By: #### T YPEC #### [facility] (DEFAULT) [address] [place] [address] Leukocyte esterase Test strip Ql (U) Large Abnormal Negative [facility] Comment on above: Order Comment: For i ndwelling catheters, specimen collection is acceptable on catheter day 1 and 2 only. ? Performed By: #### T YPEC #### [facility] (DEFAULT) [address] [place] [address] Nitrites Urine Positive Abnormal Negative [facility] Comment on above: Order Comment: For i ndwelling catheters, specimen collection is acceptable on catheter day 1 and 2 only. ? Performed By: #### T YPEC #### [facility] (DEFAULT) [address] [place] [address] pH (U) 7.0 [pH] Normal 5.0-7.0 [facility] Comment on above: Order Comment: For i ndwelling catheters, specimen collection is acceptable on catheter day 1 and 2 only. ? Performed By: #### T YPEC #### [facility] (DEFAULT) [address] [place] [address] Protein Urine Trace Abnormal Negative [facility] Comment on above: Order Comment: For i ndwelling catheters, specimen collection is acceptable on catheter day 1 and 2 only. ? Performed By: #### T YPEC #### [facility] (DEFAULT) [address] [place] [address] RBC Urine 6-10 Abnormal 0-2 [facility] Comment on above: Order Comment: For i ndwelling catheters, specimen collection is acceptable on catheter day 1 and 2 only. ? Performed By: #### T YPEC #### [facility] (DEFAULT) [address] [address] Specific [place] Urine 1.023 Normal 1.001-1.035 [facility] Comment on above: Order Comment: For i ndwelling catheters, specimen collection is acceptable on catheter day 1 and 2 only. ? Performed By: #### T YPEC #### [facility] (DEFAULT) [address] [address] Squamous/Epithelial Cells, Urine 0-2/hpf Normal 0-2/hpf, 3-5/hpf = 1+ [facility] Comment on above: Order Comment: For i ndwelling catheters, specimen collection is acceptable on catheter day 1 and 2 only. ? Performed By: #### T YPEC #### [facility] (DEFAULT) [address] [address] Urobilinogen Urine 1.0 E.U./dL Normal 0.2 E.U/d L, 1.0 E.U/dL [facility] Comment on above: Order Comment: For i ndwelling catheters, specimen collection is acceptable on catheter day 1 and 2 only. ? Performed By: #### T YPEC #### [facility] (DEFAULT) [address] [address] WBC LM.HPF (Urine sed) [#/Area] /[HPF] Abnormal 0 - 5 [facility] Comment on above: Order Comment: For i ndwelling catheters, specimen collection is acceptable on catheter day 1 and 2 only. ? Performed By: #### T YPEC #### [facility] (DEFAULT) [address] [address] URINE CULTUREon 08-08-2024 Amikacin [Susceptibility] <= Invalid Interpretation Code [facility] Comment on above: Order Comment: For [...] ? Performed By: #### T YPEC #### [facility] (DEFAULT) [address] [address] Ampicillin [Susceptibility] >=32 Resistant [facility] Comment on above: Order Comment: For [...] ? Performed By: #### T YPEC #### [facility] (DEFAULT) [address] [place] [address] Ampicillin+Sulbactam [Susceptibility] >=32 Resistant [facility] Comment on above: Order Comment: For [...] ? Performed By: #### T YPEC #### [facility] (DEFAULT) [address] [address] ceFAZolin [Susceptibility] >= Resistant [facility] Comment on above: Order Comment: For [...] cefdinir. Performed By: #### T YPEC #### [facility] (DEFAULT) [address] [address] Cefepime [Susceptibility] <= Invalid Interpretation Code [facility] Comment on above: Order Comment: For [...] Performed By: #### T YPEC #### U [facility] (DEFAULT) [address] [address] cefTRIAXone [Susceptibility] <= Invalid Interpretation Code [facility] Comment on above: Order Comment: For [...] ? Performed By: #### T YPEC #### [facility] (DEFAULT) [address] [address] Ciprofloxacin [Susceptibility] >= Resistant [facility] Comment on above: Order Comment: For [...] ? Performed By: #### T YPEC #### [facility] (DEFAULT) [address] [address] Ertapenem [Susceptibility] <= Invalid Interpretation Code [facility] Comment on above: Order Comment: For [...] ? Performed By: #### T YPEC #### [facility] (DEFAULT) [address] [address] Gentamicin [Susceptibility] <= Invalid Interpretation Code [facility] Comment on above: Order Comment: For [...] ? Performed By: #### T YPEC #### [facility] (DEFAULT) [address] [address] levoFLOXacin [Susceptibility] >= Resistant [facility] Comment on above: Order Comment: For [...] ? Performed By: #### T YPEC #### [facility] (DEFAULT) [address] [address] Nitrofurantoin [Susceptibility] 128 ug/mL Resistant [facility] Comment on above: Order Comment: For [...] ? Performed By: #### T YPEC #### [facility] (DEFAULT) [address] [address] Piperacillin+Tazobactam [Susceptibility] 8 ug/mL Invalid Interpretation Code [facility] Comment on above: Order Comment: For [...] ? Performed By: #### T YPEC #### [facility] (DEFAULT) [address] [place] [address] Trimethoprim+Sulfametho xazole [Susceptibility] <= Invalid Interpretation Code [facility] Comment on above: Order Comment: For [...] ? Performed By: #### T YPEC #### [facility] (DEFAULT) [address] [place] [address] CBC,PLATELETSon 08-07-2024 Erythrocyte distribution width (RBC) [Ratio] 13.9 % 10.8 - 14.9 % [facility] Hematocrit (Bld) [Volume fraction] 43.1 % 34.9 - 44.3 % [facility] Hemoglobin (Bld) [Mass/Vol] 13.7 g/dL 11.4 - 15.2 g/dL [facility] Interpretation and review of laboratory results Abnormal [facility] MCH (RBC) [Entitic mass] 29.6 pg 25.9 - 33.9 pg [facility] MCHC (RBC) [Mass/Vol] 31.8 g/dL 31.4 - 35.9 g/dL [facility] MCV (RBC) [Entitic vol] 93.1 fL 79.6 - 97.7 fL [facility] Platelet mean volume (Bld) [Entitic vol] 11.1 fL 8.5 - 12.2 fL [facility] Platelets (Bld) [#/Vol] 214 10*3/uL 150 - 393 K/uL [facility] RBC (Bld) [#/Vol] 4.63 10*6/uL [facility] WBC (Bld) [#/Vol] 11.3 10*3/uL High 3.99 - 11.19 K/uL [facility] CHEM 7 (LYTES,BUN,CREA,GLUC) on 08-07-2024 Anion gap [Moles/Vol] 13 mmol/L 7 - 17 mmol/L [facility] Chloride [Moles/Vol] 105 mmol/L 98 - 10 8 mmol/L [facility] CO2 [Moles/Vol] 28 mmol/L 21 - 31 mmol/L [facility] Creatinine [Mass/Vol] 1.19 mg/dL 0.50 - 1.20 mg/dL [facility] eGFR, CKD-EPI, Female 47 Low - PINF [facility] Glucose [Mass/Vol] 90 mg/dL 70 - 179 mg/dL [facility] Interpretation and review of laboratory results Abnormal [facility] Osmolality Calc [Osmolality] 304 [facility] Potassium [Moles/Vol] 4.2 mmol/L 3.5 - 5.0 mmol/L [facility] Sodium [Moles/Vol] 142 mmol/L 135 - 145 mmol/L [facility] Urea nitrogen [Mass/Vol] 34 mg/dL High 7 - 25 mg/dL [facility] Urea nitrogen/Creatinine [Mass ratio] 29 mg/mg [facility] GLUCOSE POCon 08-07-2024 Glucose [Mass/Vol] 185 mg/dL High 70 - 179 mg/dL [facility] Interpretation and review of laboratory results Abnormal [facility] POC Sample Type CAPBL [facility] Glucose [Mass/Vol] 106 mg/dL 70 - 179 mg/dL [facility] POC Sample Type CAPBL [facility] Glucose [Mass/Vol] 104 mg/dL 70 - 179 mg/dL [facility] POC Sample Type CAPBL [facility] MAGNESIUMon 08-07-2024 Interpretation and review of laboratory results Normal [facility] Magnesium [Mass/Vol] 1.8 mg/dL 1.6 - 2 .6 mg/dL [facility] No Panel Informationon 08-07 [facility] CBC,PLATELETSon 08-06-2024 Hematocrit (Bld) [Volume fraction] 43.1 % Normal 34.9-44.3 [facility] Comment on above: Performed By: #### X M #### [facility] (DEFAULT) [address] [place] [address] 9[address]60 Hemoglobin (Bld) [Mass/Vol] 13.7 g/dL Normal 11.4-15.2 [facility] Comment on above: Performed By: #### X M #### [facility] (DEFAULT) [address] [place] [address] 48268 MCV (RBC) [Entitic vol] 93.1 fL Normal 79.6-97.7 [facility] Comment on above: Performed By: #### X M #### [facility] (DEFAULT) [address] [place] [address] 75496 Mean Cell Hgb 29.6 pg Normal 25.9-33.9 [facility] Comment on above: Performed By: #### X M #### [facility] (DEFAULT) [address] [place] [address] 58545 Mean Cell Hgb Conc 31.8 g/dL Normal 31.4-35.9 [facility] Comment on above: Performed By: #### X M #### [facility] (DEFAULT) [address] [place] [address] 53036 Platelet mean volume (Bld) [Entitic vol] 11.1 fL Normal 8.5-12.2 [facility] Comment on above: Performed By: #### X M #### [facility] (DEFAULT) [address] [place] [address] 84379 Platelets (Bld) [#/Vol] 214 10*3/uL Normal 150-393 [facility] Comment on above: Performed By: #### X M #### [facility] (DEFAULT) [address] [place] [address] RBC (Bld) [#/Vol] 4.63 10*6/uL Normal 3.91-5.04 [facility] Comment on above: Performed By: #### X M #### [facility] (DEFAULT) [address] [place] [address] RBC Distribution 13.9 % Normal 10.8-14.9 [facility] Comment on above: Performed By: #### X M #### [facility] (DEFAULT) [address] [place] [address] WBC (Bld) [#/Vol] 11.30 10*3/uL High 3.99-11.19 [facility] Comment on above: Performed By: #### X M #### [facility] (DEFAULT) [address] [place] [address] 45758 Erythrocyte distribution width (RBC) [Ratio] 13.9 % 10.8 - 14.9 % [facility] Hematocrit (Bld) [Volume fraction] 44 % 34.9 - 44.3 % [facility] Hemoglobin (Bld) [Mass/Vol] 13.9 g/dL 11.4 - 15.2 g/dL [facility] Interpretation and review of laboratory results Abnormal [facility] MCH (RBC) [Entitic mass] 29.1 pg 25.9 - 33.9 pg [facility] MCHC (RBC) [Mass/Vol] 31.6 g/dL 31.4 - 35.9 g/dL [facility] MCV (RBC) [Entitic vol] 92.2 fL 79.6 - 97.7 fL [facility] Platelet mean volume (Bld) [Entitic vol] 10.7 fL 8.5 - 12.2 fL [facility] Platelets (Bld) [#/Vol] 216 10*3/uL 150 - 393 K/uL [facility] RBC (Bld) [#/Vol] 4.77 10*6/uL [facility] WBC (Bld) [#/Vol] 12.14 10*3/uL High 3.99 - 11.19 K/uL [facility] CHEM 7 (LYTES,BUN,CREA,GLUC) on 08-06-2024 Anion gap [Moles/Vol] 13 mmol/L Normal 7-17 [facility] Comment on above: Performed By: #### HEYDI PALACIOS7 ####[facility] (DEFAULT)[address] [place] [address], [place] [address] Chloride [Moles/Vol] 105 mmol/L Normal 98-108 [facility] Comment on above: Performed By: #### CAMERON PALACIOS ####[facility] (DEFAULT)[address] [place] [address] CO2 [Moles/Vol] 28 mmol/L Normal 21-31 [facility] Comment on above: Performed By: #### CAMERON PALACIOS ####[facility] (DEFAULT)[address] [place] [address] Creatinine [Mass/Vol] 1.19 mg/dL Normal 0.50-1.20 [facility] Comment on above: Performed By: #### HEYDI PALACIOS7 ####[facility] (DEFAULT)[address] [place] [address], [place] [address] GFR/1.73 sq M.predicted among non-blacks MDRD (S/P/Bld) [Vol rate/Area] 47 mL/min/{1.73_m2} Low >=60 [facility] Comment on above: Result Comment: Repo rted eGFR is based on the CKD-EPI 2020 equation using creatinine, age, and sex. Performed By: #### HEYDI PALACIOS7 ####[facility] (DEFAULT)[address] [place] [address] Glucose [Mass/Vol] 90 mg/dL Normal Nonfastin -179 mg/dL; Fastin-99 [facility] Comment on above: Performed By: #### Jaiden NGUYEN CHM7 ####[facility] (DEFAULT)[address] [place] [address] Osmolality [Osmolality] 304 mosm/kg Normal 278-305 [facility] Comment on above: Performed By: #### Jaiden NGUYEN CHM7 ####[facility] (DEFAULT)[address] [place] [address] Potassium [Moles/Vol] 4.2 mmol/L Normal 3.5-5.0 [facility] Comment on above: Performed By: #### Jaiden NGUYEN CHM7 ####[facility] (DEFAULT)[address] [place] [address] Sodium [Moles/Vol] 142 mmol/L Normal 135-145 [facility] Comment on above: Performed By: #### Jaiden NGUYEN CHM7 ####[facility] (DEFAULT)[address] [place] [address] Urea nitrogen [Mass/Vol] 34 mg/dL High 7-25 [facility] Comment on above: Performed By: #### Jaiden NGUYEN CHM7 ####[facility] (DEFAULT)[address] [place] [address] Urea nitrogen/Creatinine [Mass ratio] 29 mg/mg Normal [facility] Comment on above: Performed By: #### Jaiden NGUYEN CHM7 ####[facility] (DEFAULT)[address] [place] [address] Anion gap [Moles/Vol] 14 mmol/L 7 - 17 mmol/L [facility] Chloride [Moles/Vol] 107 mmol/L 98 - 10 8 mmol/L [facility] CO2 [Moles/Vol] 27 mmol/L 21 - 31 mmol/L [facility] Creatinine [Mass/Vol] 1.19 mg/dL 0.50 - 1.20 mg/dL [facility] eGFR, CKD-EPI, Female 47 Low - [facility]F [facility] Glucose [Mass/Vol] 88 mg/dL 70 - 179 mg/dL [facility] Interpretation and review of laboratory results Abnormal [facility] Osmolality Calc [Osmolality] 307 High [facility] Potassium [Moles/Vol] 3.9 mmol/L 3.5 - 5.0 mmol/L [facility] Sodium [Moles/Vol] 144 mmol/L 135 - 145 mmol/L [facility] Urea nitrogen [Mass/Vol] 34 mg/dL High 7 - 25 mg/dL [facility] Urea nitrogen/Creatinine [Mass ratio] 29 mg/mg [facility] GLUCOSE POCon 08-06-2024 Glucose [Mass/Vol] 166 mg/dL 70 - 179 mg/dL [facility] Glucose [Mass/Vol] 106 mg/dL 70 - 179 mg/dL [facility] Glucose [Mass/Vol] 100 mg/dL 70 - 179 mg/dL [facility] POC Sample Type VENO [facility] Glucose [Mass/Vol] 219 mg/dL High 70 - 179 mg/dL [facility] Interpretation and review of laboratory results Abnormal [facility] Glucose [Mass/Vol] 249 mg/dL High 70 - 179 mg/dL [facility] Glucose [Mass/Vol] 178 mg/dL 70 - 179 mg/dL [facility] Glucose [Mass/Vol] 194 mg/dL High 70 - 179 mg/dL [facility] Glucose [Mass/Vol] 93 mg/dL 70 - 179 mg/dL [facility] POC Sample Type VENO [facility] IONIZED CALCIUM, WHOLE BLOOD Ordered By: Zuleika Blunt on 08-06-2024 Calcium.ionized (Bld) [Moles/Vol] 4.72 mg/dL 4.60 - 5.30 mg/dL [facility] Interpretation and review of laboratory results [facility] MAGNESIUMon 08-06-2024 Magnesium [Mass/Vol] 1.8 mg/dL Normal 1.6-2.6 [facility] Comment on above: Performed By: #### M HILARIA NGUYENM7 ####[facility] (DEFAULT)[address] [place] [address] Magnesium [Mass/Vol] 2.4 mg/dL 1.6 - 2 .6 mg/dL [facility] No Panel Informationon 08-06 POC Sample Type CAPBL [facility] Interpretation and review of laboratory results Abnormal [facility] Interpretation and review of laboratory results Normal [facility] PHOSPHATE, INORGANICon 08-06 Phosphate [Mass/Vol] 3.2 mg/dL 2.2 - 4 .6 mg/dL [facility] RF videography Hypopharynx a nd Esophagus Views W liquid and paste contrast PO during swallowingon 08-06-2024 RADIOLOGY RADIOLOGY [facility] Radiology Study observation (narrative) [facility] RF videography Hypopharynx a nd Esophagus Views W liquid and paste contrast PO during swallowingOrdered By: Gerry Resendez on 08-06-2024 [facility] Work Phone: SPEECH MODIFIED BARIUM SWALL OWon 08-06-2024 [facility] XR FLUORO MODIFIED BARIUM SW [...] for specific therapeutic recommendations, please see the song and dance performer report of the speech pathologist. Examination performed by ARCADIO Nicole, under the direct supervision of Gerry Resendez M.D., who was immediately available on site during the examination. I personally viewed and interpreted these images and I have reviewed and approved this report. Normal [facility] CBC,PLATELETSon 08-05-2024 Hematocrit (Bld) [Volume fraction] 44.0 % Normal 34.9-44.3 [facility] Comment on above: Performed By: #### B LDCULT #### [facility] (DEFAULT) [address] [address] Hemoglobin (Bld) [Mass/Vol] 13.9 g/dL Normal 11.4-15.2 [facility] Comment on above: Performed By: #### B LDCULT #### [facility] (DEFAULT) [address] [address] MCV (RBC) [Entitic vol] 92.2 fL Normal 79.6-97.7 [facility] Comment on above: Performed By: #### B LDCULT #### [facility] (DEFAULT) [address] [address] Mean Cell Hgb 29.1 pg Normal 25.9-33.9 [facility] Comment on above: Performed By: #### B LDCULT #### [facility] (DEFAULT) [address] [place] [address] 29391 Mean Cell Hgb Conc 31.6 g/dL Normal 31.4-35.9 [facility] Comment on above: Performed By: #### B LDCULT #### [facility] (DEFAULT) [address] [place] [address] 29549 Platelet mean volume (Bld) [Entitic vol] 10.7 fL Normal 8.5-12.2 [facility] Comment on above: Performed By: #### B LDCULT #### [facility] (DEFAULT) [address] [place] [address]807 Platelets (Bld) [#/Vol] 216 10*3/uL Normal 150-393 [facility] Comment on above: Performed By: #### B LDCULT #### [facility] (DEFAULT) [address] [place] [address] 49813 RBC (Bld) [#/Vol] 4.77 10*6/uL Normal 3.91-5.04 [facility] Comment on above: Performed By: #### B LDCULT #### [facility] (DEFAULT) [address] [place] [address]63 RBC Distribution 13.9 % Normal 10.8-14.9 [facility] Comment on above: Performed By: #### B LDCULT #### [facility] (DEFAULT) [address] [place] [address]404 WBC (Bld) [#/Vol] 12.14 10*3/uL High 3.99-11.19 [facility] Comment on above: Performed By: #### B LDCULT #### [facility] (DEFAULT) [address] [place] [address] Erythrocyte distribution width (RBC) [Ratio] 13.9 % 10.8 - 14.9 % [facility] Hematocrit (Bld) [Volume fraction] 39.6 % 34.9 - 44.3 % [facility] Hemoglobin (Bld) [Mass/Vol] 12.6 g/dL 11.4 - 15.2 g/dL [facility] Interpretation and review of laboratory results Normal [facility] MCH (RBC) [Entitic mass] 29.3 pg 25.9 - 33.9 pg [facility] MCHC (RBC) [Mass/Vol] 31.8 g/dL 31.4 - 35.9 g/dL [facility] MCV (RBC) [Entitic vol] 92.1 fL 79.6 - 97.7 fL [facility] Platelet mean volume (Bld) [Entitic vol] 10.7 fL 8.5 - 12.2 fL [facility] Platelets (Bld) [#/Vol] 198 10*3/uL 150 - 393 K/uL [facility] RBC (Bld) [#/Vol] 4.3 10*6/uL [facility] WBC (Bld) [#/Vol] 10.61 10*3/uL 3.99 - 11.19 K/uL [facility] Hematocrit (Bld) [Volume fraction] 39.6 % Normal 34.9-44.3 [facility] Comment on above: Performed By: #### [facility] ####[facility] (DEFAULT)[address] [place] [address] Hemoglobin (Bld) [Mass/Vol] 12.6 g/dL Normal 11.4-15.2 [facility] Comment on above: Performed By: #### [facility] ####[facility] (DEFAULT)[address] [facility] [address] MCV (RBC) [Entitic vol] 92.1 fL Normal 79.6-97.7 [facility] Comment on above: Performed By: #### [facility] ####[facility] (DEFAULT)[address] [place] [address] Mean Cell Hgb 29.3 pg Normal 25.9-33.9 [facility] Comment on above: Performed By: #### [facility] ####[facility] (DEFAULT)[address] [place] [address] Mean Cell Hgb Conc 31.8 g/dL Normal 31.4-35.9 [facility] Comment on above: Performed By: #### H EMOGC ####[facility] (DEFAULT)[address] [place] [address] Platelet mean volume (Bld) [Entitic vol] 10.7 fL Normal 8.5-12.2 [facility] Comment on above: Performed By: #### H EMOGC ####[facility] (DEFAULT)[address] [place] [address] Platelets (Bld) [#/Vol] 198 10*3/uL Normal 150-393 [facility] Comment on above: Performed By: #### H EMO ####[facility] (DEFAULT)[address] [place] [address] RBC (Bld) [#/Vol] 4.30 10*6/uL Normal 3.91-5.04 [facility] Comment on above: Performed By: #### H EMO ####[facility] (DEFAULT)[address] [place] [address] RBC Distribution 13.9 % Normal 10.8-14.9 [facility] Comment on above: Performed By: #### H EMOGC ####[facility] (DEFAULT)[address] [place] [address] WBC (Bld) [#/Vol] 10.61 10*3/uL Normal 3.99-11.19 [facility] Comment on above: Performed By: #### H EMOGC ####[facility] (DEFAULT)[address] [place] [address] CHEM 7 (LYTES,BUN,CREA,GLUC) on 08-05-2024 Anion gap [Moles/Vol] 14 mmol/L Normal 7-17 [facility] Comment on above: Performed By: #### S URGP #### [facility] (DEFAULT) [address] [place] [address]58 Chloride [Moles/Vol] 107 mmol/L Normal 98-108 [facility] Comment on above: Performed By: #### S URGP #### [facility] (DEFAULT) [address] [place] [address] 11951 CO2 [Moles/Vol] 27 mmol/L Normal 21-31 [facility] Comment on above: Performed By: #### S URGP #### [facility] (DEFAULT) [address] [place] [address] Creatinine [Mass/Vol] 1.19 mg/dL Normal 0.50-1.20 [facility] Comment on above: Performed By: #### S URGP #### [facility] (DEFAULT) [address] [place] [address] 28138 GFR/1.73 sq M.predicted among non-blacks MDRD (S/P/Bld) [Vol rate/Area] 47 mL/min/{1.73_m2} Low >=60 [facility] Comment on above: Result Comment: Repo rted eGFR is based on the CKD-EPI 2020 equation using creatinine, age, and sex. Performed By: #### S URGP #### [facility] (DEFAULT) [address] [place] [address] Glucose [Mass/Vol] 88 mg/dL Normal Nonfastin -179 mg/dL; Fastin-99 [facility] Comment on above: Performed By: #### S URGP #### [facility] (DEFAULT) [address] [place] [address] Osmolality [Osmolality] 307 mosm/kg High 278-305 [facility] Comment on above: Performed By: #### S URGP #### [facility] (DEFAULT) [address] [place] [address] Potassium [Moles/Vol] 3.9 mmol/L Normal 3.5-5.0 [facility] Comment on above: Performed By: #### S URGP #### [facility] (DEFAULT) [address] [place] [address] Sodium [Moles/Vol] 144 mmol/L Normal 135-145 [facility] Comment on above: Performed By: #### S URGP #### [facility] (DEFAULT) [address] [place] [address] Urea nitrogen [Mass/Vol] 34 mg/dL High 7-25 [facility] Comment on above: Performed By: #### S URGP #### [facility] (DEFAULT) [address] [place] [address] Urea nitrogen/Creatinine [Mass ratio] 29 mg/mg Normal [facility] Comment on above: Performed By: #### S URGP #### [facility] (DEFAULT) [address] [place] [address] Anion gap [Moles/Vol] 14 mmol/L 7 - 17 mmol/L [facility] Chloride [Moles/Vol] 108 mmol/L 98 - 10 8 mmol/L [facility] CO2 [Moles/Vol] 25 mmol/L 21 - 31 mmol/L [facility] Creatinine [Mass/Vol] 1.45 mg/dL High 0.50 - 1.20 mg/dL [facility] eGFR, CKD-EPI, Female 37 Low - PINF [facility] Glucose [Mass/Vol] 242 mg/dL High 70 - 179 mg/dL [facility] Interpretation and review of laboratory results Abnormal [facility] Osmolality Calc [Osmolality] 315 High [facility] Potassium [Moles/Vol] 3.8 mmol/L 3.5 - 5.0 mmol/L [facility] Sodium [Moles/Vol] 143 mmol/L 135 - 145 mmol/L [facility] Urea nitrogen [Mass/Vol] 35 mg/dL High 7 - 25 mg/dL [facility] Urea nitrogen/Creatinine [Mass ratio] 24 mg/mg [facility] Anion gap [Moles/Vol] 14 mmol/L Normal 7-17 [facility] Comment on above: Performed By: #### X M #### [facility] (DEFAULT) [address] [place] [address] Chloride [Moles/Vol] 108 mmol/L Normal 98-108 [facility] Comment on above: Performed By: #### X M #### [facility] (DEFAULT) [address] [place] [address] CO2 [Moles/Vol] 25 mmol/L Normal 21-31 [facility] Comment on above: Performed By: #### X M #### [facility] (DEFAULT) [address] [place] [address] Creatinine [Mass/Vol] 1.45 mg/dL High 0.50-1.20 [facility] Comment on above: Performed By: #### X M #### [facility] (DEFAULT) [address] [place] [address] GFR/1.73 sq M.predicted among non-blacks MDRD (S/P/Bld) [Vol rate/Area] 37 mL/min/{1.73_m2} Low >=60 [facility] Comment on above: Result Comment: Repo rted eGFR is based on the CKD-EPI 2020 equation using creatinine, age, and sex. Performed By: #### X M #### [facility] (DEFAULT) [address] [place] [address] Glucose [Mass/Vol] 242 mg/dL High Nonfastin -179 mg/dL; Fastin-99 [facility] Comment on above: Performed By: #### X M #### [facility] (DEFAULT) [address] [place] [address] Osmolality [Osmolality] 315 mosm/kg High 278-305 [facility] Comment on above: Performed By: #### X M #### [facility] (DEFAULT) [address] [place] [address] Potassium [Moles/Vol] 3.8 mmol/L Normal 3.5-5.0 [facility] Comment on above: Performed By: #### X M #### [facility] (DEFAULT) [address] [place] [address] Sodium [Moles/Vol] 143 mmol/L Normal 135-145 [facility] Comment on above: Performed By: #### X M #### [facility] (DEFAULT) [address] [place] [address] Urea nitrogen [Mass/Vol] 35 mg/dL High 7-25 [facility] Comment on above: Performed By: #### X M #### [facility] (DEFAULT) [address] [place] [address] Urea nitrogen/Creatinine [Mass ratio] 24 mg/mg Normal [facility] Comment on above: Performed By: #### X M #### [facility] (DEFAULT) [address] [place] [address] Cardiac echo study Procedure Ordered By: Ezequiel Figueroa on 08-05-2024 Ao ASC index 1.56 cm/m2 [facility] [facility] Work Phone: Ao peak fidel 1.23 m/s [facility] Work Phone: Ao SOV index 1.56 cm/m2 [facility] Work Phone: Ao STJ index 1.36 cm/m2 [facility] Work Phone: Ao VTI 24.81 cm [facility] Work Phone: Ascending [facility] 2.97 [facility]: AV LVOT peak gradient 4 mmHg [facility] Work Phone: AV mean gradient 4 [facility] peak gradient 6 mmHG [facility] Work Phone: [phone] AV valve area 2.72 cm2 [facility] Work Phone: [phone] AV Velocity Ratio 0.8 [facility] Work Phone: [phone] MARKUS (continuity Vmax) 2.55 cm2 [facility] Work Phone: [phone] MARKUS (continuity VTI) 2.72 cm2 [facility] Work Phone: [phone] MARKUS index (continuity Vmax) 1.34 m/s [facility] Work Phone: [phone] MARKUS index (continuity VTI) 1.43 cm2/m2 [facility] Work Phone: [phone] Avg e' pk fidel 0.09 m/s [facility] Work Phone: [phone] Body surface area Derived from formula 1.9 m2 [facility] Work Phone: [phone] BP EF 55 % [facility] Work Phone: [phone] DI (Vmax) 0.8 [facility] Work Phone: [phone] DI (VTI) 0.86 m/2 [facility] Work Phone: [phone] e' lateral pk fidel 0.0845 m/s [facility] Work Phone: [phone] e' lateral pk fidel 0.08 m/s [facility] Work Phone: [phone] e' septal pk fidel 0.0953 m/s [facility] Work Phone: [phone] e' septal pk fidel 0.1 m/s [facility] Work Phone: [phone] EF SP 2CH 56 [facility] Work Phone: [phone] EF SP 4CH 51 [facility]: [phone] EST RAP 3 mmHg [facility] Work Phone: [phone] EST RVSP 29 mmHg [facility] Work Phone: [phone] FS 31 % [facility] Work Phone: [phone] IVC ostium 1.64 cm [facility] Work Phone: [phone] IVS 1.14 cm [facility] Work Phone: [phone] LA area 4CH 29.07 cm2 [facility] Work Phone: [phone] LA ESV BP (MOD) 86 mL [facility] Work Phone: [phone] LA ESV BP (MOD) index 45 mL/m2 [facility] Work Phone: [phone] LA ESV SP 2CH (MOD) 81 mL [facility] Work Phone: [phone] LA ESV SP 4CH (MOD) 93 mL [facility] Work Phone: [phone] LV EDV BP 88 mL [facility] Work Phone: [phone] LV EDV SP 2CH 85 mL [facility] Work Phone: [phone] LV EDV SP 4CH 86 mL [facility] Work Phone: [phone] LV ESV BP 40 mL [facility] Work Phone: [phone] LV ESV SP 2CH 37 [facility] Work Phone: [phone] LV ESV SP 4CH 42 mL [facility] Work Phone: [phone] LV mass 146.48 g [facility] Work Phone: [phone] LV Mass Index 77.1 g/m2 [facility] Work Phone: [phone] LV RWT 0.56 [facility] Work Phone: [phone] LV stroke volume BP (ml) 48 mL [facility] Work Phone: [phone] LV stroke volume index BP 25.26 mL/m2 [facility] Work Phone: [phone] LVIDD 3.93 cm [facility] Work Phone: [phone] LVIDS 2.7 cm [facility] Work Phone: [phone] LVOT area 3.17 cm2 [facility] Work Phone: [phone] LVOT diameter 2.01 cm [facility] Work Phone: [phone] LVOT peak fidel 0.99 m/s [facility] Work Phone: [phone] LVOT peak VTI 21.3 cm [facility] Work Phone: [phone] [facility]OT stroke volume 68 [facility]3 [facility]: [phone] LVOT stroke volume index 35.55 ml/m2 [facility] Work Phone: [phone] MV mean gradient 3 mmHg [facility] Work Phone: [phone] MV peak gradient 6 mmHg [facility] Work Phone: [phone] MV valve area by continuity eq 2.61 cm2 [facility] Work Phone: [phone] MV VTI 25.92 cm [facility] Work Phone: [phone] MVA (continuity VTI) 2.6 cm [facility] Work Phone: [phone] [facility] AV VTI RATIO PRE STRESS 0.86 [facility] Work Phone: [phone] [facility] ECHO LV BIPLANE SYSTOLIC VOLUME INDEX 21.05 mL/m2 [facility] Work Phone: [phone] [facility] ECHO LV BP DIASTOLIC VOLUME INDEX 46.32 mL/m2 [facility] Work Phone: PV mean gradient 3 mmHg [facility] Work Phone: PV peak gradient 6 mmHg [facility] Work Phone: PV PK FIDEL 1.23 m/s [facility] Work Phone: PW 1.11 cm [facility] Work Phone: RA area 4CH (MOD) 22.74 cm2 [facility]: RA vol index 4CH (MOD) 36.32 mL/m2 [facility] Work Phone: Right atrium volume 4 chamber method of disks 69 mL [facility] Work Phone: RV Area diastolic 17.5 cm2 [facility] Work Phone: RV Area systolic 11.9 cm2 [facility] Work Phone: RV basal diam 4.56 cm [facility] Work Phone: RV Fractional area change 32 % [facility] Work Phone: RV long diam 6.91 cm [facility] Work Phone: RV mid diam 2.91 cm [facility] Work Phone: RV S' 12.81 cm/s [facility] Work Phone: RVOT peak gradient 5 mmHg [facility] Work Phone: RVOT peak fidel 1.07 m/s [facility] Work Phone: RVOT peak VTI 20.1 cm [facility] Work Phone: Sinus 2.97 cm [facility] Work Phone: [phone] STJ 2.58 cm [facility] Work Phone: [phone] Stroke Volume 68 cm/mL [facility] Work Phone: [phone] Stroke volume index 36 [facility] Work Phone: [phone] TAPSE 2.08 cm [facility] Work Phone: [phone] TR pk grad 26 mmHg [facility] Work Phone: [phone] TR pk fidel 2.53 m/s [facility] Work Phone: [phone] [facility] Work Phone: [phone] Cardiac echo study Procedure on 08-05-[address] [facility] Radiology Study observation (narrative) [facility] ECHOCARDIOGRAMon 08-05-2024 Echocardiography ? No prior [...] from the original result were not included. [facility] Facility [facility] Patient Information Patient Name ArmandOctober Legal [...] Role Read Date Ezequiel Figueroa DO Echo [place] 08/05/2024 Left Heart Measurements LV - Systole [...] long di (more content not included)... Normal [facility] GLUCOSE POCon 08-05-2024 Glucose [Mass/Vol] 228 mg/dL High 70 - 179 mg/dL [facility] Interpretation and review of laboratory results Abnormal [facility] POC Sample Type CAPBL [facility] IONIZED CALCIUM, WHOLE BLOOD on 08-05-2024 ICA 4.72 mg/dL Normal 4.60-5.30 [facility] Comment on above: Performed By: #### S URGP #### [facility] (DEFAULT) [address] [address] ICA 4.69 mg/dL Normal 4.60-5.30 [facility] Comment on above: Performed By: #### S URGP #### [facility] (DEFAULT) [address] [address] IONIZED CALCIUM, WHOLE BLOOD Ordered By: Jairo Layton on 08-05-2024 Calcium.ionized (Bld) [Moles/Vol] 4.69 mg/dL 4.60 - 5.30 mg/dL [facility] Interpretation and review of laboratory results Normal [facility] MAGNESIUMon 08-05-2024 Magnesium [Mass/Vol] 2.4 mg/dL Normal 1.6-2.6 [facility] Comment on above: Performed By: #### S URGP #### [facility] (DEFAULT) [address] [place] [address] Magnesium [Mass/Vol] 1.8 mg/dL 1.6 - 2 .6 mg/dL [facility] Magnesium [Mass/Vol] 1.8 mg/dL Normal 1.6-2.6 [facility] Comment on above: Performed By: #### X M #### [facility] (DEFAULT) [address] [place] [address] No Panel Informationon 08-05 Interpretation and review of laboratory results Normal [facility] PHOSPHATE, INORGANICon 08-05 Phosphorous 3.2 mg/dL Normal 2.2-4.6 [facility] Comment on above: Performed By: #### S URGP #### [facility] (DEFAULT) [address] [place] [address] Phosphate [Mass/Vol] 2.7 mg/dL 2.2 - 4 .6 mg/dL [facility] Phosphorous 2.7 mg/dL Normal 2.2-4.6 [facility] Comment on above: Performed By: #### X M #### [facility] (DEFAULT) [address] [place] [address] [facility] FACTOR AGOrde red By: Madhavi Mcelroy on 08-05-2024 Interpretation and review of laboratory results Abnormal [facility] vWf Ag actual/normal IA (PPP) [Relative mass conc] 230 % High 50 - 180 % [facility] CBC,PLATELETSon 08-04-2024 Erythrocyte distribution width (RBC) [Ratio] 13.7 % 10.8 - 14.9 % [facility] Hematocrit (Bld) [Volume fraction] 40.8 % 34.9 - 44.3 % [facility] Hemoglobin (Bld) [Mass/Vol] 12.7 g/dL 11.4 - 15.2 g/dL [facility] Interpretation and review of laboratory results Abnormal [facility] MCH (RBC) [Entitic mass] 28.7 pg 25.9 - 33.9 pg [facility] MCHC (RBC) [Mass/Vol] 31.1 g/dL Low 31.4 - 35.9 g/dL [facility] MCV (RBC) [Entitic vol] 92.1 fL 79.6 - 97.7 fL [facility] Platelet mean volume (Bld) [Entitic vol] 10.8 fL 8.5 - 12.2 fL [facility] Platelets (Bld) [#/Vol] 228 10*3/uL 150 - 393 K/uL [facility] RBC (Bld) [#/Vol] 4.43 10*6/uL [facility] WBC (Bld) [#/Vol] 11.41 10*3/uL High 3.99 - 11.19 K/uL [facility] Hematocrit (Bld) [Volume fraction] 40.8 % Normal 34.9-44.3 [facility] Comment on above: Performed By: #### [facility] #### [facility] (DEFAULT) [address] [place] [address] Hemoglobin (Bld) [Mass/Vol] 12.7 g/dL Normal 11.4-15.2 [facility] Comment on above: Performed By: #### [facility] #### [facility] (DEFAULT) [address] [place] [address] MCV (RBC) [Entitic vol] 92.1 fL Normal 79.6-97.7 [facility] Comment on above: Performed By: #### H EMOGC #### [facility] (DEFAULT) [address] [place] [address] Mean Cell Hgb 28.7 pg Normal 25.9-33.9 [facility] Comment on above: Performed By: #### H EMOGC #### [facility] (DEFAULT) [address] [address] Mean Cell Hgb Conc 31.1 g/dL Low 31.4-35.9 [facility] Comment on above: Performed By: #### H EMOGC #### [facility] (DEFAULT) [address] [address] Platelet mean volume (Bld) [Entitic vol] 10.8 fL Normal 8.5-12.2 [facility] Comment on above: Performed By: #### H EMOGC #### [facility] (DEFAULT) [address] [address] Platelets (Bld) [#/Vol] 228 10*3/uL Normal 150-393 [facility] Comment on above: Performed By: #### H EMOGC #### [facility] (DEFAULT) [address] [address] RBC (Bld) [#/Vol] 4.43 10*6/uL Normal 3.91-5.04 [facility] Comment on above: Performed By: #### H EMOGC #### [facility] (DEFAULT) [address] [place] [address] RBC Distribution 13.7 % Normal 10.8-14.9 [facility] Comment on above: Performed By: #### H EMOGC #### [facility] (DEFAULT) [address] [address] WBC (Bld) [#/Vol] 11.41 10*3/uL High 3.99-11.19 [facility] Comment on above: Performed By: #### H EMOGC #### [facility] (DEFAULT) [address] [place] [address] CHEM 7 (LYTES,BUN,CREA,GLUC) Ordered By: Lizette Canseco on 08-04-2024 Anion gap [Moles/Vol] 16 mmol/L 7 - 17 mmol/L [facility] Chloride [Moles/Vol] 109 mmol/L High 98 - 10 8 mmol/L [facility] CO2 [Moles/Vol] 24 mmol/L 21 - 31 mmol/L [facility] Creatinine [Mass/Vol] 1.47 mg/dL High 0.50 - 1.20 mg/dL [facility] eGFR, CKD-EPI, Female 36 Low - PINF [facility] Glucose [Mass/Vol] 181 mg/dL High 70 - 179 mg/dL [facility] Interpretation and review of laboratory results Abnormal [facility] Osmolality Calc [Osmolality] 312 High [facility] Potassium [Moles/Vol] 4 mmol/L 3.5 - 5.0 mmol/L [facility] Sodium [Moles/Vol] 145 mmol/L 135 - 145 mmol/L [facility] Urea nitrogen [Mass/Vol] 26 mg/dL High 7 - 25 mg/dL [facility] Urea nitrogen/Creatinine [Mass ratio] 18 mg/mg [facility] CHEM 7 (LYTES,BUN,CREA,GLUC) on 08-04-2024 Anion gap [Moles/Vol] 16 mmol/L Normal 7-17 [facility] Comment on above: Performed By: #### S URGP #### [facility] (DEFAULT) [address] [place] [address] Chloride [Moles/Vol] 109 mmol/L High 98-108 [facility] Comment on above: Performed By: #### S URGP #### [facility] (DEFAULT) [address] [place] [address] CO2 [Moles/Vol] 24 mmol/L Normal 21-31 [facility] Comment on above: Performed By: #### S URGP #### [facility] (DEFAULT) [address] [place] [address] Creatinine [Mass/Vol] 1.47 mg/dL High 0.50-1.20 [facility] Comment on above: Performed By: #### S URGP #### [facility] (DEFAULT) [address] [place] [address] GFR/1.73 sq M.predicted among non-blacks MDRD (S/P/Bld) [Vol rate/Area] 36 mL/min/{1.73_m2} Low >=60 [facility] Comment on above: Result Comment: Repo rted eGFR is based on the CKD-EPI 2020 equation using creatinine, age, and sex. Performed By: #### S URGP #### [facility] (DEFAULT) [address] [place] [address] Glucose [Mass/Vol] 181 mg/dL High Nonfastin -179 mg/dL; Fastin-99 [facility] Comment on above: Performed By: #### S URGP #### [facility] (DEFAULT) [address] [place] [address] Osmolality [Osmolality] 312 mosm/kg High 278-305 [facility] Comment on above: Performed By: #### S URGP #### [facility] (DEFAULT) [address] [place] [address] Potassium [Moles/Vol] 4.0 mmol/L Normal 3.5-5.0 [facility] Comment on above: Performed By: #### S URGP #### [facility] (DEFAULT) [address] [place] [address] Sodium [Moles/Vol] 145 mmol/L Normal 135-145 [facility] Comment on above: Performed By: #### S URGP #### [facility] (DEFAULT) [address] [place] [address] Urea nitrogen [Mass/Vol] 26 mg/dL High 7-25 [facility] Comment on above: Performed By: #### S URGP #### [facility] (DEFAULT) [address] [place] [address] Urea nitrogen/Creatinine [Mass ratio] 18 mg/mg Normal [facility] Comment on above: Performed By: #### S URGP #### [facility] (DEFAULT) [address] [place] [address] CT HEAD WITHOUT CONTRASTon 0 08-04-2024 CT [...] sinuses are clear. IMPRESSION: Stable exam. Normal [facility] CT Head WO contraston 2024 RADIOLOGY RADIOLOGY [facility] CT Head WO contrastOrdered B y: Chirag Mendenhall on 08-04-2024 [facility] Work Phone: GLUCOSE POCon 08-04-2024 Glucose [Mass/Vol] 227 mg/dL High 70 - 179 mg/dL [facility] Interpretation and review of laboratory results Abnormal [facility] POC Sample Type VENO [facility] Glucose [Mass/Vol] 235 mg/dL High 70 - 179 mg/dL [facility] Interpretation and review of laboratory results Abnormal [facility] POC Sample Type VENO [facility] Glucose [Mass/Vol] 215 mg/dL High 70 - 179 mg/dL [facility] Interpretation and review of laboratory results Abnormal [facility] POC Sample Type CAPBL [facility] Glucose [Mass/Vol] 178 mg/dL 70 - 179 mg/dL [facility] Glucose [Mass/Vol] 157 mg/dL 70 - 179 mg/dL [facility] Glucose [Mass/Vol] 271 mg/dL High 70 - 179 mg/dL [facility] Glucose [Mass/Vol] 267 mg/dL High 70 - 179 mg/dL [facility] Glucose [Mass/Vol] 246 mg/dL High 70 - 179 mg/dL [facility] IONIZED CALCIUM, WHOLE BLOOD Ordered By: Laura Rodriguez on 08-04-2024 Calcium.ionized (Bld) [Moles/Vol] 4.8 mg/dL 4.60 - 5.30 mg/dL [facility] Interpretation and review of laboratory results Normal [facility] IONIZED CALCIUM, WHOLE BLOOD on 08-04-2024 ICA 4.80 mg/dL Normal 4.60-5.30 [facility] Comment on above: Performed By: #### T YPEC #### [facility] (DEFAULT) [address] [place] [address] MAGNESIUMon 08-04-2024 Magnesium [Mass/Vol] 1.9 mg/dL 1.6 - 2 .6 mg/dL [facility] Magnesium [Mass/Vol] 1.9 mg/dL Normal 1.6-2.6 [facility] Comment on above: Performed By: #### X M #### [facility] (DEFAULT) [address] [place] [address] No Panel Informationon 08-04 POC Sample Type CAPBL [facility] Interpretation and review of laboratory results Abnormal [facility] Interpretation and review of laboratory results Normal [facility] PHOSPHATE, INORGANICon 08-04 Phosphate [Mass/Vol] 2.8 mg/dL 2.2 - 4 .6 mg/dL [facility] Phosphorous 2.8 mg/dL Normal 2.2-4.6 [facility] Comment on above: Performed By: #### X M #### [facility] (DEFAULT) [address] [place] [address] SODIUMon 08-04-2024 Interpretation and review of laboratory results Normal [facility] Sodium [Moles/Vol] 142 mmol/L 135 - 145 mmol/L [facility] Sodium [Moles/Vol] 142 mmol/L Normal 135-145 [facility] Comment on above: Order Comment: While on 3% Hypertonic Saline. Performed By: #### S URGP #### [facility] (DEFAULT) [address] [place] [address] Interpretation and review of laboratory results Normal [facility] Sodium [Moles/Vol] 141 mmol/L 135 - 145 mmol/L [facility] Sodium [Moles/Vol] 141 mmol/L Normal 135-145 [facility] Comment on above: Order Comment: 2 [...] bottle. Performed By: #### B LDCULT #### [facility] (DEFAULT) [address] [address] Interpretation and review of laboratory results Normal [facility] Sodium [Moles/Vol] 143 mmol/L 135 - 145 mmol/L [facility] Sodium [Moles/Vol] 143 mmol/L Normal 135-145 [facility] Comment on above: Order Comment: While on 3% Hypertonic Saline. Performed By: #### H EMOGC #### [facility] (DEFAULT) [address] [place] [address] ABORH TYPE RECONFIRMATIONon 08-03-2024 ABO/RH(D) TYPE Negative [facility] ABO/RH(D) TYPE Negative Normal [facility] Comment on above: Performed By: #### T YPEC #### [facility] (DEFAULT) [address] [place] [address] CBC,PLATELETSon 08-03-2024 Erythrocyte distribution width (RBC) [Ratio] 13.2 % 10.8 - 14.9 % [facility] Hematocrit (Bld) [Volume fraction] 42.8 % 34.9 - 44.3 % [facility] Hemoglobin (Bld) [Mass/Vol] 13.5 g/dL 11.4 - 15.2 g/dL [facility] Interpretation and review of laboratory results Normal [facility] MCH (RBC) [Entitic mass] 29.2 pg 25.9 - 33.9 pg [facility] MCHC (RBC) [Mass/Vol] 31.5 g/dL 31.4 - 35.9 g/dL [facility] MCV (RBC) [Entitic vol] 92.4 fL 79.6 - 97.7 fL [facility] Platelet mean volume (Bld) [Entitic vol] 11.2 fL 8.5 - 12.2 fL [facility] Platelets (Bld) [#/Vol] 227 10*3/uL 150 - 393 K/uL [facility] RBC (Bld) [#/Vol] 4.63 10*6/uL [facility] WBC (Bld) [#/Vol] 8.43 10*3/uL 3.99 - 11.19 K/uL [facility] Hematocrit (Bld) [Volume fraction] 42.8 % Normal 34.9-44.3 [facility] Comment on above: Performed By: #### X M #### [facility] (DEFAULT) [address] [address] Hemoglobin (Bld) [Mass/Vol] 13.5 g/dL Normal 11.4-15.2 [facility] Comment on above: Performed By: #### X M #### [facility] (DEFAULT) [address] [address] MCV (RBC) [Entitic vol] 92.4 fL Normal 79.6-97.7 [facility] Comment on above: Performed By: #### X M #### [facility] (DEFAULT) [address] [place] [address] Mean Cell Hgb 29.2 pg Normal 25.9-33.9 [facility] Comment on above: Performed By: #### X M #### [facility] (DEFAULT) [address] [address] Mean Cell Hgb Conc 31.5 g/dL Normal 31.4-35.9 [facility] Comment on above: Performed By: #### X M #### [facility] (DEFAULT) [address] [place] [address] Platelet mean volume (Bld) [Entitic vol] 11.2 fL Normal 8.5-12.2 [facility] Comment on above: Performed By: #### X M #### [facility] (DEFAULT) [address] [address] Platelets (Bld) [#/Vol] 227 10*3/uL Normal 150-393 [facility] Comment on above: Performed By: #### X M #### [facility] (DEFAULT) [address] [place] [address] RBC (Bld) [#/Vol] 4.63 10*6/uL Normal 3.91-5.04 [facility] Comment on above: Performed By: #### X M #### [facility] (DEFAULT) [address] [place] [address] RBC Distribution 13.2 % Normal 10.8-14.9 [facility] Comment on above: Performed By: #### X M #### [facility] (DEFAULT) [address] [place] [address] WBC (Bld) [#/Vol] 8.43 10*3/uL Normal 3.99-11.19 [facility] Comment on above: Performed By: #### X M #### [facility] (DEFAULT) [address] [place] [address] CHEM 7 (LYTES,BUN,CREA,GLUC) on 08-03-2024 Anion gap [Moles/Vol] 16 mmol/L 7 - 17 mmol/L [facility] Chloride [Moles/Vol] 103 mmol/L 98 - 10 8 mmol/L [facility] CO2 [Moles/Vol] 23 mmol/L 21 - 31 mmol/L [facility] Creatinine [Mass/Vol] 1.35 mg/dL High 0.50 - 1.20 mg/dL The [facility] eGFR, CKD-EPI, Female 40 Low - PINF [facility] Glucose [Mass/Vol] 151 mg/dL 70 - 179 mg/dL [facility] Interpretation and review of laboratory results Abnormal [facility] Osmolality Calc [Osmolality] 295 [facility] Potassium [Moles/Vol] 4.3 mmol/L 3.5 - 5.0 mmol/L [facility] Sodium [Moles/Vol] 138 mmol/L 135 - 145 mmol/L [facility] Urea nitrogen [Mass/Vol] 18 mg/dL 7 - 25 mg/dL [facility] Urea nitrogen/Creatinine [Mass ratio] 13 mg/mg [facility] Anion gap [Moles/Vol] 16 mmol/L Normal 7-17 [facility] Comment on above: Performed By: #### S URGP #### [facility] (DEFAULT) [address] [place] [address] Chloride [Moles/Vol] 103 mmol/L Normal 98-108 [facility] Comment on above: Performed By: #### S URGP #### [facility] (DEFAULT) [address] [place] [address] CO2 [Moles/Vol] 23 mmol/L Normal 21-31 [facility] Comment on above: Performed By: #### S URGP #### [facility] (DEFAULT) [address] [place] [address] Creatinine [Mass/Vol] 1.35 mg/dL High 0.50-1.20 [facility] Comment on above: Performed By: #### S URGP #### [facility] (DEFAULT) [address] [address] GFR/1.73 sq M.predicted among non-blacks MDRD (S/P/Bld) [Vol rate/Area] 40 mL/min/{1.73_m2} Low >=60 [facility] Comment on above: Result Comment: Repo rted eGFR is based on the CKD-EPI 2020 equation using creatinine, age, and sex. Performed By: #### S URGP #### [facility] (DEFAULT) [address] [place] [address] Glucose [Mass/Vol] 151 mg/dL Normal Nonfastin -179 mg/dL; Fastin-99 [facility] Comment on above: Performed By: #### S URGP #### [facility] (DEFAULT) [address] [address] Osmolality [Osmolality] 295 mosm/kg Normal 278-305 [facility] Comment on above: Performed By: #### S URGP #### [facility] (DEFAULT) [address] [place] [address] Potassium [Moles/Vol] 4.3 mmol/L Normal 3.5-5.0 [facility] Comment on above: Result Comment: Spec imen slightly hemolyzed. Potassium results may be falsey elevated by more than 0.5 mmol/L. Consider recollection. Performed By: #### S URGP #### [facility] (DEFAULT) [address] [place] [address] Sodium [Moles/Vol] 138 mmol/L Normal 135-145 [facility] Comment on above: Performed By: #### S URGP #### [facility] (DEFAULT) [address] [place] [address] Urea nitrogen [Mass/Vol] 18 mg/dL Normal 7-25 [facility] Comment on above: Performed By: #### S URGP #### [facility] (DEFAULT) [address] [place] [address] Urea nitrogen/Creatinine [Mass ratio] 13 mg/mg Normal [facility] Comment on above: Performed By: #### S URGP #### [facility] (DEFAULT) [address] [place] [address] [facility] TRAUMAon 08-03-2024 CT CHEST WITH CONTRAST VASCULAR [...] have reviewed and approved this report. Normal [facility] CT Cervical spine WO contras ton 08-03-2024 RADIOLOGY RADIOLOGY [facility] CT Cervical spine WO contras tOrdered By: Alissa Chun on 08-03-2024 [facility] Work Phone: CT Chest W contrast Seth RADIOLOGY RADIOLOGY [facility] CT Chest W contrast IVOrdere d By: Kayla Newell on 08-03-2024 [facility] Work Phone: CT HEAD WITHOUT CONTRASTon 0 [...] since the MRI from earlier today Normal [facility] CT Head WO contraston 2024 Radiology Study observation (narrative) [facility] RADIOLOGY RADIOLOGY [facility] Radiology Study observation (narrative) [facility] CT ORBITS WITHOUT CONTRASTon 08-03-2024 CT [...] basal ganglia hyperdensity concerning for hemorrhage. Normal [facility] CT Orbit WO contraston 08-[address] [facility] CT SPINE CERVICAL WITHOUT CO [...] No evidence of acute fractures identified Normal [facility] EXTRA MICROon 08-03-2024 [facility] GLUCOSE POCon 08-03-2024 Glucose [Mass/Vol] 161 mg/dL 70 - 179 mg/dL [facility] POC Sample Type CAPBL [facility] IONIZED CALCIUM, WHOLE BLOOD Ordered By: Alejandra Ness on 08-03-2024 Calcium.ionized (Bld) [Moles/Vol] 4.24 mg/dL Low 4.60 - 5.30 mg/dL [facility] Interpretation and review of laboratory results Abnormal [facility] IONIZED CALCIUM, WHOLE BLOOD on 08-03-2024 ICA 4.24 mg/dL Low 4.60-5.30 [facility] Comment on above: Performed By: #### H [facility] #### [facility] (DEFAULT) [address] [place] [address] MAGNESIUMon 08-03-2024 Magnesium [Mass/Vol] 2.1 mg/dL 1.6 - 2 .6 mg/dL [facility] Magnesium [Mass/Vol] 2.1 mg/dL Normal 1.6-2.6 [facility] Comment on above: Performed By: #### S URGP #### [facility] (DEFAULT) [address] [address] MR Brain WO contraston 08-[address] [facility] Radiology Study observation (narrative) [facility] MR Cervical spine WO contras ton 08-03-2024 RADIOLOGY RADIOLOGY [facility] Radiology Study observation (narrative) [facility] MR Cervical spine WO contras tOrdered By: Kuldeep Tavares on 08-03-2024 [facility] Work Phone: MRI BRAIN WITHOUT CONTRASTon 08-03-2024 [...] tiny 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 Normal [facility] MRI SPINE CERVICAL WITHOUT C ONTRASTon [...] have reviewed and approved this report. Normal [facility] NT-PRO B-TYPE NATRIURETIC PE PTIDEon 08-03-2024 Interpretation and review of laboratory results Abnormal [facility] Natriuretic peptide.B prohormone N-Terminal IA [Mass/Vol] 1115 pg/mL High NINF - 540 pg/mL [facility] No Panel Informationon 08-03 RADIOLOGY RADIOLOGY [facility] Interpretation and review of laboratory results Normal [facility] No Panel InformationOrdered By: Richard Sánchez on 08-03-2024 [facility] Work Phone: PHOSPHATE, INORGANICon 08-03 Phosphate [Mass/Vol] 3.5 mg/dL 2.2 - 4 .6 mg/dL [facility] Phosphorous 3.5 mg/dL Normal 2.2-4.6 [facility] Comment on above: Performed By: #### S URGP #### [facility] (DEFAULT) [address] [place] [address] SCREEN: MRSA/MSSAOrdered By: Gail Collado on 08-03-2024 Interpretation and review of laboratory results Normal [facility] Methicillin Resistant S. Aureus By Pcr Negative Negative [facility] Staphylococcus Aureus By Pcr Negative Negative [facility] SODIUMon 08-03-2024 Interpretation and review of laboratory results Normal [facility] Sodium [Moles/Vol] 139 mmol/L 135 - 145 mmol/L [facility] Sodium [Moles/Vol] 139 mmol/L Normal 135-145 [facility] Comment on above: Order Comment: While on 3% Hypertonic Saline. Performed By: #### N AO ####[facility] (DEFAULT)[address] [place] [address] Interpretation and review of laboratory results Abnormal [facility] Sodium [Moles/Vol] 134 mmol/L Low 135 - 145 mmol/L [facility] Sodium [Moles/Vol] 134 mmol/L Low 135-145 [facility] Comment on above: Order Comment: While on 3% Hypertonic Saline. Performed By: #### H EMOGC #### [facility] (DEFAULT) [address] [place] [address] XR ABDOMEN 1 VIEW PORTABLEon 08-03-2024 XR [...] proximal second portion of the duodenum. Normal [facility] XR Abdomen Single viewon RADIOLOGY RADIOLOGY [facility] Radiology Study observation (narrative) [facility] XR Abdomen Single viewOrdere d By: Huey Gibson on 08-03-2024 [facility] XR ELBOW RIGHT 2 VIEWSon XR ELBOW RIGHT 2 VIEWS EXAM: XR ELBOW RI GHT 2 VIEWS, XR HUMERUS RIGHT 2+ VIEWS, XR WRIST RIGHT 3+ VIEWS, 08/02/2024 23:24 PM (accession [id number]), 08/02/2024 23:24 PM (accession [id number]), 08/02/2024 23:23 PM (accession [id number]) COMPARISON: No prior studies available for comparison. [...] dislocation. IMPRESSION: No acute osseous abnormality. Normal [facility] XR HUMERUS RIGHT 2+ VIEWSon 08-03-2024 XR HUMERUS RIGHT 2+ VIEWS EXAM: XR ELBOW RIGHT 2 VIEWS, XR HUMERUS RIGHT 2+ VIEWS, XR WRIST RIGHT 3+ VIEWS, 08/02/2024 23:24 PM (accession [id number]), 08/02/2024 23:24 PM (accession [id number]), 08/02/2024 23:23 PM (accession [id number]) COMPARISON: No prior studies available for comparison. [...] dislocation. IMPRESSION: No acute osseous abnormality. Normal [facility] XR WRIST RIGHT 3+ VIEWSon XR WRIST RIGHT 3+ VIEWS EXAM: XR ELBOW R IGHT 2 VIEWS, XR HUMERUS RIGHT 2+ VIEWS, XR WRIST RIGHT 3+ VIEWS, 08/02/2024 23:24 PM (accession [id number]), 08/02/2024 23:24 PM (accession [id number]), 08/02/2024 23:23 PM (accession [id number]) COMPARISON: No prior studies available for comparison. [...] dislocation. IMPRESSION: No acute osseous abnormality. Normal [facility] 12 Lead EKGon 08-02-2024 12 Lead EKG [facility] [address] [place] [address] 12 Lead EKG 08/02/24 1309 MR#: [id number] Acct: [id number] Name: LINDSAY ACUNA Rep #: [id number] : 1945 78 From: Mj Benavides MD [...] ECG Confirmed by MAKAYLA LAWSON, MJ ([id number]), editor city [place] ([id number]) on 08/05/2024 6:47:07 AM Referred By: Confirmed By: MJ BENAVIDES MD 08/05/24 0647 Date Mj Benavides MD CC: Dr. Pieter Morgan MD; Dr. Kameron Caruso MD Signed Normal [facility] Absolute lymphocyte countOrd ered By: Pieter Morgan on 08-02-2024 Lymphocytes Auto (Unsp spec) [#/Vol] 1.56 10*3/uL 0.83-4.51 [facility] Absolute neutrophil countOrd ered By: Pieter Morgan on 08-02-2024 Neutrophils (Bld) [#/Vol] 6.2 10*3/uL 2.0-7.7 [facility] Activated partial thrombopla stin time (aPTT) in platelet poor plasma by coagulation aOrdered By: Pieter Morgan on 08-02-2024 aPTT Coag (PPP) [Time] 28.4 s 24.1-36.2 [facility] Anion gap in Serum or Plasma Ordered By: Pieter Morgan on 08-02-2024 Anion gap [Moles/Vol] 12 mmol/L 5-15 [facility] Automated lymphocyte count a s percentage of total leukocytesOrdered By: Pieter Morgan on 08-02-2024 Lymphocytes/100 WBC Auto (Unsp spec) 17.9 % Low 19-41 [facility] BUN/creatinine ratioOrdered By: Pieter Morgan on 08-02-2024 Urea nitrogen/Creatinine [Mass ratio] 11.6 mg/mg 03-03 [facility] Basic Metabolic Profile (BMP )on 08-02-2024 BUN/CRE 11.6 RATIO Normal 03-03 [facility] Comment on above: Performed By: #### L 300.4310, L501.4021, L300.3900, L500.2500, L100.0100 #### [facility] [address] [place], [address] Calcium [Mass/Vol] 9.0 mg/dL Normal 7.6-11.0 [facility] Comment on above: Performed By: #### L 300.4310, L501.4021, L300.3900, L500.2500, L100.0100 #### [facility] [address] [place], [address] Chloride [Moles/Vol] 98 mmol/L Normal 98-108 [facility] Comment on above: Performed By: #### L 300.4310, L501.4021, L300.3900, L500.2500, L100.0100 #### [facility] [address] [place], [address] CO2 [Moles/Vol] 22.0 mmol/L Normal 21.0-32.0 [facility] Comment on above: Performed By: #### L 300.4310, L501.4021, L300.3900, L500.2500, L100.0100 #### [facility] [address] [place], [address] Creatinine [Mass/Vol] 1.74 mg/dL High 0.70-1.20 [facility] Comment on above: Performed By: #### L 300.4310, L501.4021, L300.3900, L500.2500, L100.0100 #### [facility] [address] [place], [address] ECRCL 27.14 ml/min Low 50-250 [facility] Comment on above: Performed By: #### L 300.4310, L501.4021, L300.3900, L500.2500, L100.0100 #### [facility] [address] [place], [address] GAP 12 Normal 5-15 [facility] Comment on above: Performed By: #### L 300.4310, L501.4021, L300.3900, L500.2500, L100.0100 #### [facility] [address] [place], [address] GFR/1.73 sq M.predicted among non-blacks MDRD (S/P/Bld) [Vol rate/Area] 29 mL/min/{1.73_m2} Low >60 [facility] Comment on above: Result Comment: mL/m in/1.73m2 CKD-EPI Creatinine Equation (2020) Performed By: #### L 300.4310, L501.4021, L300.3900, L500.2500, L100.0100 #### [facility] [address] [place], [address] Glucose [Mass/Vol] 235 mg/dL High 70-99 [facility] Comment on above: Performed By: #### L 300.4310, L501.4021, L300.3900, L500.2500, L100.0100 #### [facility] [address] [place], [address] Potassium [Moles/Vol] 4.2 mmol/L Normal 3.3-5.1 [facility] Comment on above: Performed By: #### L 300.4310, L501.4021, L300.3900, L500.2500, L100.0100 #### [facility] [address] [place], [address] Sodium [Moles/Vol] 132 mmol/L Low 133-145 [facility] Comment on above: Performed By: #### L 300.4310, L501.4021, L300.3900, L500.2500, L100.0100 #### [facility] [address] [place], [address] Urea nitrogen [Mass/Vol] 20 mg/dL High 4-19 [facility] Comment on above: Performed By: #### L 300.4310, L501.4021, L300.3900, L500.2500, L100.0100 #### [facility] [address] [place], [address] Basophil percentageOrdered B y: Pieter Morgan on 08-02-2024 Basophils/100 WBC (Bld) 0.5 % 0-1 [facility] CBC W/Diff, Automatedon 07-14 Absolute Lymph 1.56 X10 3/uL Normal 0.83-4.51 [facility] Comment on above: Performed By: #### L 300.4310, L501.4021, L300.3900, L500.2500, L100.0100 #### [facility] [address] [place], [address] Absolute Neut 6.2 X10 3/uL Normal 2.0-7.7 [facility] Comment on above: Performed By: #### L 300.4310, L501.4021, L300.3900, L500.2500, L100.0100 #### [facility] [address] [place], [address] Basophils/100 WBC (Bld) 0.5 % Normal 0-1 [facility] Comment on above: Performed By: #### L 300.4310, L501.4021, L300.3900, L500.2500, L100.0100 #### [facility] [address] [place], [address] Eosinophils/100 WBC (Bld) 1.0 % Normal 0-5 [facility] Comment on above: Performed By: #### L 300.4310, L501.4021, L300.3900, L500.2500, L100.0100 #### [facility] [address] [place], [address] Erythrocyte distribution width (RBC) [Ratio] 13.3 % Normal 11.6-14.6 [facility] Comment on above: Performed By: #### L 300.4310, L501.4021, L300.3900, L500.2500, L100.0100 #### [facility] [address] [place], [address] Hematocrit (Bld) [Volume fraction] 42.0 % Normal 37-47 [facility] Comment on above: Performed By: #### L 300.4310, L501.4021, L300.3900, L500.2500, L100.0100 #### [facility] [address] [place], [address] Hemoglobin (Bld) [Mass/Vol] 13.8 g/dL Normal 12.0-15.0 [facility] Comment on above: Performed By: #### L 300.4310, L501.4021, L300.3900, L500.2500, L100.0100 #### [facility] [address] [place], [address] IG% 0.300 Normal 0.0-0.9 [facility] Comment on above: Result Comment: IG% - Immature Granulocytes (promyelocytes, myelocytes and metamyelocytes) > 1% indicates that a LEFT SHIFT is Present. Performed By: #### L 300.4310, L501.4021, L300.3900, L500.2500, L100.0100 #### [facility] [address] [place], [address] Lymphocytes/100 WBC (Bld) 17.9 % Low 19-41 [facility] Comment on above: Performed By: #### L 300.4310, L501.4021, L300.3900, L500.2500, L100.0100 #### [facility] [address] [place], [address] MCH (RBC) [Entitic mass] 30.3 pg Normal 27.0-32.0 [facility] Comment on above: Performed By: #### L 300.4310, L501.4021, L300.3900, L500.2500, L100.0100 #### [facility] [address] [place], [address] MCHC (RBC) [Mass/Vol] 32.9 g/dL Normal 32-36 [facility] Comment on above: Performed By: #### L 300.4310, L501.4021, L300.3900, L500.2500, L100.0100 #### [facility] [address] [place], [address] MCV (RBC) [Entitic vol] 92.1 fL Normal 81-99 [facility] Comment on above: Performed By: #### L 300.4310, L501.4021, L300.3900, L500.2500, L100.0100 #### [facility] [address] [place], [address] Monocytes/100 WBC (Bld) 8.9 % Normal 0-10 [facility] Comment on above: Performed By: #### L 300.4310, L501.4021, L300.3900, L500.2500, L100.0100 #### [facility] [address] [place], [address] Neutrophils/100 WBC (Bld) 71.4 % High 47-70 [facility] Comment on above: Performed By: #### L 300.4310, L501.4021, L300.3900, L500.2500, L100.0100 #### [facility] [address] [place], [address] Nucleated RBC (Bld) [#/Vol] 0 10*3/uL Normal 0-5 [facility] Comment on above: Performed By: #### L 300.4310, L501.4021, L300.3900, L500.2500, L100.0100 #### [facility] [address] [place], [address] Platelet mean volume (Bld) [Entitic vol] 10.7 fL Normal 6.2-12.0 [facility] Comment on above: Performed By: #### L 300.4310, L501.4021, L300.3900, L500.2500, L100.0100 #### [facility] [address] [place], [address] Platelets (Bld) [#/Vol] 214 10*3/uL Normal 150-450 [facility] Comment on above: Performed By: #### L 300.4310, L501.4021, L300.3900, L500.2500, L100.0100 #### [facility] [address] [place], [address] RBC (Bld) [#/Vol] 4.56 10*6/uL Normal 4.2-5.4 [facility] Comment on above: Performed By: #### L 300.4310, L501.4021, L300.3900, L500.2500, L100.0100 #### [facility] [address] [place], [address] RDW SD 45.3 fl High 35.1-43.9 [facility] Comment on above: Performed By: #### L 300.4310, L501.4021, L300.3900, L500.2500, L100.0100 #### [facility] [address] [place], [address] WBC (Bld) [#/Vol] 8.7 10*3/uL Normal 4.4-11.0 [facility] Comment on above: Performed By: #### L 300.4310, L501.4021, L300.3900, L500.2500, L100.0100 #### [facility] [address] [place], [address] CBC,PLATELETSon 08-02-2024 Erythrocyte distribution width (RBC) [Ratio] 13.3 % 10.8 - 14.9 % [facility] Hematocrit (Bld) [Volume fraction] 43.8 % 34.9 - 44.3 % [facility] Hemoglobin (Bld) [Mass/Vol] 14 g/dL 11.4 - 15.2 g/dL [facility] Interpretation and review of laboratory results Normal [facility] MCH (RBC) [Entitic mass] 29.4 pg 25.9 - 33.9 pg [facility] MCHC (RBC) [Mass/Vol] 32 g/dL 31.4 - 35.9 g/dL [facility] MCV (RBC) [Entitic vol] 92 fL 79.6 - 97.7 fL [facility] Platelet mean volume (Bld) [Entitic vol] 10.8 fL 8.5 - 12.2 fL [facility] Platelets (Bld) [#/Vol] 245 10*3/uL 150 - 393 K/uL [facility] RBC (Bld) [#/Vol] 4.76 10*6/uL [facility] WBC (Bld) [#/Vol] 8.16 10*3/uL 3.99 - 11.19 K/uL [facility] Hematocrit (Bld) [Volume fraction] 43.8 % Normal 34.9-44.3 [facility] Comment on above: Performed By: #### B LDCULT #### [facility] (DEFAULT) [address] [place] [address] Hemoglobin (Bld) [Mass/Vol] 14.0 g/dL Normal 11.4-15.2 [facility] Comment on above: Performed By: #### B LDCULT #### [facility] (DEFAULT) [address] [place] [address] MCV (RBC) [Entitic vol] 92.0 fL Normal 79.6-97.7 [facility] Comment on above: Performed By: #### B LDCULT #### [facility] (DEFAULT) [address] [place] [address] Mean Cell Hgb 29.4 pg Normal 25.9-33.9 [facility] Comment on above: Performed By: #### B LDCULT #### [facility] (DEFAULT) [address] [place] [address] Mean Cell Hgb Conc 32.0 g/dL Normal 31.4-35.9 [facility] Comment on above: Performed By: #### B LDCULT #### [facility] (DEFAULT) [address] [place] [address] Platelet mean volume (Bld) [Entitic vol] 10.8 fL Normal 8.5-12.2 [facility] Comment on above: Performed By: #### B LDCULT #### [facility] (DEFAULT) [address] [place] [address] Platelets (Bld) [#/Vol] 245 10*3/uL Normal 150-393 [facility] Comment on above: Performed By: #### B LDCULT #### [facility] (DEFAULT) [address] [place] [address] RBC (Bld) [#/Vol] 4.76 10*6/uL Normal 3.91-5.04 [facility] Comment on above: Performed By: #### B LDCULT #### [facility] (DEFAULT) [address] [place] [address] RBC Distribution 13.3 % Normal 10.8-14.9 [facility] Comment on above: Performed By: #### B LDCULT #### [facility] (DEFAULT) [address] [place] [address] WBC (Bld) [#/Vol] 8.16 10*3/uL Normal 3.99-11.19 [facility] Comment on above: Performed By: #### B LDCULT #### [facility] (DEFAULT) [address] [place] [address] CHEM 7 (LYTES,BUN,CREA,GLUC) on 08-02-2024 Anion gap [Moles/Vol] 16 mmol/L 7 - 17 mmol/L [facility] Chloride [Moles/Vol] 105 mmol/L 98 - 10 8 mmol/L [facility] CO2 [Moles/Vol] 22 mmol/L 21 - 31 mmol/L [facility] Creatinine [Mass/Vol] 1.37 mg/dL High 0.50 - 1.20 mg/dL [facility] eGFR, CKD-EPI, Female 39 Low - PINF [facility] Glucose [Mass/Vol] 210 mg/dL High 70 - 179 mg/dL [facility] Osmolality Calc [Osmolality] 299 [facility] Potassium [Moles/Vol] 3.7 mmol/L 3.5 - 5.0 mmol/L [facility] Sodium [Moles/Vol] 139 mmol/L 135 - 145 mmol/L [facility] Urea nitrogen [Mass/Vol] 18 mg/dL 7 - 25 mg/dL [facility] Urea nitrogen/Creatinine [Mass ratio] 13 mg/mg [facility] Anion gap [Moles/Vol] 16 mmol/L Normal 7-17 [facility] [facility] Comment on above: Performed By: #### H EMOGC #### [facility] (DEFAULT) [address] [address] Chloride [Moles/Vol] 105 mmol/L Normal 98-108 [facility] Comment on above: Performed By: #### H EMO #### [facility] (DEFAULT) [address] [address] CO2 [Moles/Vol] 22 mmol/L Normal 21-31 [facility] Comment on above: Performed By: #### H EMO #### [facility] (DEFAULT) [address] [address] Creatinine [Mass/Vol] 1.37 mg/dL High 0.50-1.20 [facility] Comment on above: Performed By: #### [facility] #### [facility] (DEFAULT) [address] [address] GFR/1.73 sq M.predicted among non-blacks MDRD (S/P/Bld) [Vol rate/Area] 39 mL/min/{1.73_m2} Low >=60 [facility] Comment on above: Result Comment: Repo rted eGFR is based on the CKD-EPI 2020 equation using creatinine, age, and sex. Performed By: #### [facility] #### [facility] (DEFAULT) [address] [address] Glucose [Mass/Vol] 210 mg/dL High Nonfastin -179 mg/dL; Fastin-99 [facility] Comment on above: Performed By: #### H EMOGC #### [facility] (DEFAULT) [address] [address] Osmolality [Osmolality] 299 mosm/kg Normal 278-305 [facility] Comment on above: Performed By: #### H EMOGC #### [facility] (DEFAULT) [address] [address] Potassium [Moles/Vol] 3.7 mmol/L Normal 3.5-5.0 [facility] Comment on above: Performed By: #### H EMO #### [facility] (DEFAULT) [address] [place] [address] Sodium [Moles/Vol] 139 mmol/L Normal 135-145 [facility] Comment on above: Performed By: #### H EMO #### [facility] (DEFAULT) [address] [place] [address] Urea nitrogen [Mass/Vol] 18 mg/dL Normal 7-25 [facility] Comment on above: Performed By: #### H EMOGC #### [facility] (DEFAULT) [address] [place] [address] Urea nitrogen/Creatinine [Mass ratio] 13 mg/mg Normal [facility] Comment on above: Performed By: #### [facility] #### [facility] (DEFAULT) [address] [place] [address] CT ABDOMEN/PELVIS WITH CONTR AST VASCULAR TRAUMAon [...] grade: None. Kidney trauma grade: None. Normal [facility] CT Abdomen and Pelvis W cont rast Seth 08-02-2024 RADIOLOGY RADIOLOGY [facility] CT Abdomen and Pelvis W cont rast IVOrdered By: Edson Head on 08-02-2024 [facility] Work Phone: CT Cervical spine WO contras ton 08-02-2024 Radiology Study observation (narrative) [facility] CT Orbit WO contraston 08-02 Radiology Study observation (narrative) [facility] Carbon dioxide, total [Moles /volume] in Central venous bloodOrdered By: Pieter Morgan on 08-02-2024 CO2 [Moles/Vol] 22.0 mmol/L 21.0-32.0 [facility] Chloride assayOrdered By: Racheal Morgan on 08-02-2024 Chloride [Moles/Vol] 98 mmol/L 98-108 [facility] Emergency Department Summary on 08-02-2024 Emergency Department Summary [facility] Medical Records Department [address] [place] [address] Emergency Department Summary 08/02/24 MR#: [id number] Acct: [id number] Name: LINDSAY ACUNA Rep #: [id number] : 1945 78 From: Pieter Morgan MD [...] the EMR. states they returned home from [facility] about 1.5-2 weeks ago, and they both had colds. He is better, but she is "on round 2." [facility] Medical History Paroxysmal atrial fibrillation with [...] normal respir (more content not included)... Normal [facility] Eosinophil percentageOrdered By: Pieter Morgan on 08-02-2024 Eosinophils/100 WBC (Bld) 1.0 % 0-5 [facility] Erythrocyte distribution wid th ratioOrdered By: Pieter Morgan on 08-02-2024 Erythrocyte distribution width (RBC) [Ratio] 13.3 % 11.6-14.6 [facility] Erythrocyte distribution wid th standard deviationOrdered By: Pieter Morgan on 08-02-2024 Erythrocyte distribution width (RBC) [Entitic vol] 45.3 fL High 35.1-43.9 [facility] Erythrocyte distribution width (RBC) [Ratio] 45.3 fl High 35.1-43.9 [facility] Estimation of creatinine mackenzie aranceOrdered By: Pieter Morgan on 08-02-2024 Estimated Creatinine Clearance Calc 27.14 ml/min Low 50-250 [facility] GFR/1.73 sq M.predicted lana g non-blacks MDRD (S/P/Bld) [Vol rate/Area]Ordered By: Pieter Morgan on 08-02-2024 Estimated GFR (MDRD) Non-Af Amer 29 Low >60 [facility] Comment on above: mL/min/1.73m2 CKD-EP I Creatinine Equation (2020) Glomerular filtration rate ( GFR) estimation/1.73 sq m using serum, plasma, or whole bOrdered By: Pieter Morgan on 08-02-2024 GFR/1.73 sq M.predicted among non-blacks MDRD (S/P/Bld) [Vol rate/Area] 29 mL/min/{1.73_m2} Low >60 [facility] Comment on above: mL/min/1.73m2 CKD-EP I Creatinine Equation (2020) HEMOGLOBIN A1Con 08-02-2024 Average glucose Estimated from glycated hemoglobin (Bld) [Mass/Vol] 177 mg/dL [facility] HbA1c (Bld) [Mass fraction] 7.8 % High 4.7 - 5.6 % [facility] Interpretation and review of laboratory results Abnormal [facility] Glucose [Mass/Vol] 177 mg/dL Normal [facility] Comment on above: Performed By: #### [facility] #### [facility] (DEFAULT) [address] [place] [address] Hemoglobin A1C HPLC 7.8 % High 4.7-5.6 [facility] Comment on above: Performed By: #### H EMO #### [facility] (DEFAULT) [address] [place] [address] HEPATIC FUNCTION PANELon Albumin [Mass/Vol] 3.5 g/dL 3.5 - 5.0 g/dL [facility] ALP [Catalytic activity/Vol] 117 U/L 32 - 126 U/L [facility] ALT [Catalytic activity/Vol] 10 U/L 9 - 48 U/L [facility] AST [Catalytic activity/Vol] 17 U/L 10 - 39 U/L [facility] Bilirubin [Mass/Vol] 0.6 mg/dL [facility] mg/dL [facility] Bilirubin.direct [Mass/Vol] 0.1 mg/dL NINF - 0.3 mg/dL [facility] Protein [Mass/Vol] 6.3 g/dL Low 6.4 - 8.3 g/dL [facility] Albumin [Mass/Vol] 3.5 g/dL Normal 3.5-5.0 [facility]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 International Society of Nephrology, 3(1), 1-150. Performed By: #### U ACR ####[facility] LABCLIA [id number] [place] [address] [place] Creatinine (U) [Mass/Vol] 102.1 mg/dL Normal 20.0-300.0 [facility] Comment on above: Order Comment: Speci men Type: URINE SPECIMENOrdering Facility: [facility] Address: [address] [place] [address] Performed By: #### U ACR ####[facility] LABCLIA [id number] [place] [id number] [place] Comprehensive metabolic 2000 panelon 05-23-2024 Albumin [Mass/Vol] 4.2 g/dL Normal 3.9-4.9 [facility] Comment on above: Order Comment: Speci men Type: BLOOD SPECIMENOrdering Facility: [facility] Address: [address] [place] [address] Performed By: #### 2 4331-1, 76082-5, 3016-3 ####[facility] LABCLIA [id number] [place] [address] [place] ALP [Catalytic activity/Vol] 146 U/L High 34-123 [facility] Comment on above: Order Comment: Speci men Type: BLOOD SPECIMENOrdering Facility: [facility] Address: [address] [place] [address] Performed By: #### 2 4331-1, 19055-7, 3015-3 ####[facility] LABCLIA [id number] [place] [address] [place] ALT [Catalytic activity/Vol] 17 U/L Normal 7-38 [facility] Comment on above: Order Comment: Speci men Type: BLOOD SPECIMENOrdering Facility: [facility] Address: [address] [place] [address] Performed By: #### 2 4331-1, 91630-8, 3015-3 ####[facility] LABIA [id number] [place] [address] [place] Anion gap [Moles/Vol] 9 mmol/L Normal 8-15 [facility] Comment on above: Order Comment: Speci men Type: BLOOD SPECIMENOrdering Facility: [facility] Address: [address] [place] [address] Performed By: #### 2 4331-1, 32243-1, 3015-3 ####[facility] LABCLIA [id number] [place] [address] [place] AST [Catalytic activity/Vol] 16 U/L Normal 13-35 [facility] Comment on above: Order Comment: Speci men Type: BLOOD SPECIMENOrdering Facility: [facility] Address: [address] [place] [address] Performed By: #### 2 4331-1, 80092-4, 6-3 ####[facility] LABCLIA [id number] [place] [address] [place] Bilirubin [Mass/Vol] 0.4 mg/dL Normal 0.2-1.3 [facility] Comment on above: Order Comment: Speci men Type: BLOOD SPECIMENOrdering Facility: [facility] Address: [address] [place] [address] Performed By: #### 2 4331-1, 22045-3, 3 ####[facility] LABCLIA [id number] [facility] [address] [address] [address] [place] Calcium [Mass/Vol] 9.6 mg/dL Normal 8.5-10.2 [facility] Comment on above: Order Comment: Speci men Type: BLOOD SPECIMENOrdering Facility: [facility] Address: [address] [place] [address] Performed By: #### 2 4331-1, , 3 ####[facility] LABCLIA [id number] [place] [address] [place] Chloride [Moles/Vol] 104 mmol/L Normal 98-107 [facility] Comment on above: Order Comment: Speci men Type: BLOOD SPECIMENOrdering Facility: [facility] Address: [address] [place] [address] Performed By: #### 2 4331-1, , 3 ####[facility] LABCLIA [id number] [place] [id number] [place] CO2 [Moles/Vol] 28 mmol/L Normal 22-30 [facility] Comment on above: Order Comment: Speci men Type: BLOOD SPECIMENOrdering Facility: [facility] Address: [address] [place], [place] [address] Performed By: #### 2 4331-1, , 3 ####[facility] LABCLIA [id number] [facility] [address] [address] [place] Creatinine [Mass/Vol] 1.31 mg/dL High 0.58-0.96 [facility] Comment on above: Order Comment: Deana borjas Type: BLOOD SPECIMENOrdering Facility: [facility] Address: [address] [place] [address] Performed By: #### 2 4331-1, 24677-0, 3015-3 ####[facility] LABCLIA [id number] [place] [address] [place] Creatinine and Glomerular filtration rate.predicted panel (S/P/Bld) 42 mL/min/1.73m??? Low >=60 [facility] Comment on above: Order Comment: Deana borjas Type: BLOOD SPECIMENOrdering Facility: [facility] Address: [address] [place] [address] Result Comment: Nancy mated Glomerular Filtration Rate [...] actual GFR. Performed By: #### 2 4331-1, 35558-1, 3 ####[facility] LABCLIA [id number] [place] [address] [place] Glucose [Mass/Vol] 105 mg/dL High 74-99 [facility] Comment on above: Order Comment: Deana borjas Type: BLOOD SPECIMENOrdering Facility: [facility] Address: [address] [place] [address] Result Comment: The [place] Diabetes Association (ADA) provides guidance for cutoff [...] Standards of Medical Care in Diabetes 2016, [place] Diabetes Association. Diabetes Care. 2016.39(Suppl 1). Performed By: #### 2 4331-1, 00792-7, 3015-3 ####[facility] LABCLIA [id number] [address] [address] [place] Potassium [Moles/Vol] 4.7 mmol/L Normal 3.7-5.1 [facility] Comment on above: Order Comment: Speci men Type: BLOOD SPECIMENOrdering Facility: [facility] Address: [address] [place] [address] Performed By: #### 2 4331-1, 26296-9, 3 ####[facility] LABCLIA [id number] [address] [address] [place] Protein [Mass/Vol] 7.1 g/dL Normal 6.3-8.0 [facility] Comment on above: Order Comment: Speci men Type: BLOOD SPECIMENOrdering Facility: [facility] Address: [address] [place] [address] Performed By: #### 2 4331-1, , 3 ####[facility] LABCLIA [id number] [address] [address] [place] Sodium [Moles/Vol] 141 mmol/L Normal 136-144 [facility] Comment on above: Order Comment: Speci men Type: BLOOD SPECIMENOrdering Facility: [facility] Address: [address] [place] [address] Performed By: #### 2 4331-1, 04467-5, 3 ####[facility] LABCLIA [id number] [address] [address] [place] Urea nitrogen [Mass/Vol] 18 mg/dL Normal 7-21 [facility] Comment on above: Order Comment: Speci men Type: BLOOD SPECIMENOrdering Facility: [facility] Address: [address] [place] [address] Performed By: #### 2 4331-1, 83152-2, 3016-3 ####[facility] LABIA [id number] [address] [place] HbA1c (Bld)on 05-23-2024 Average glucose Estimated from glycated hemoglobin (Bld) [Mass/Vol] 154 mg/dL Normal [facility] Comment on above: Order Comment: Speci men Type: BLOOD SPECIMENOrdering Facility: [facility] Address: [address] [place] [address] Result Comment: eAG: (Estimated average glucose) is a calculated value from HgbA1c and is cash applications representative of the average blood glucose level in the last 2-3 month period. Performed By: #### 5 5454-3 ####[facility] LABIA [id number] [address] STATES OF [facility] HbA1c (Bld) [Mass fraction] 7.0 % High 4.3-5.6 [facility] Comment on above: Order Comment: Deana borjas Type: BLOOD SPECIMENOrdering Facility: [facility] Address: [address] [place] [address] Result Comment: Amer [place] Diabetes Association guidelines indicate that patients with HgbA1c in the range 5.7-6.4% are at increased risk for development of diabetes, and intervention by lifestyle modification may be beneficial. HgbA1c greater or equal to 6.5% is considered diagnostic of diabetes. Performed By: #### 5 5454-3 ####[facility] LABIA [id number] [place] [address] [place] Lipid 1996 panelon Cholesterol [Mass/Vol] 193 mg/dL Normal <200 Cl [facility] Comment on above: Order Comment: Deana men Type: BLOOD SPECIMENOrdering Facility: [facility] Address: [address] [place] [address] Result Comment: <200 mg/dL, Desirable 200-239 mg/dL, Borderline high >239 mg/dL, High Performed By: #### 2 4331-1, 43770-1, 3 ####[facility] LABCLIA [id number] [address] [address] [place] Cholesterol in HDL [Mass/Vol] 44 mg/dL Normal >39 [facility] Comment on above: Order Comment: Speci men Type: BLOOD SPECIMENOrdering Facility: [facility] Address: [address] [place] [address] Result Comment: 40-5 9 mg/dL, Acceptable >59 mg/dL, High: Negative risk factor for coronary heart disease <40 mg/dL, Low: Positive risk factor for coronary heart disease Performed By: #### 2 4331-1, , 3015-07 ####[facility] LABCLIA [id number] [address] [address] [place] Cholesterol in LDL [Mass/Vol] 123 mg/dL High <100 [facility] Comment on above: Order Comment: Deana men Type: BLOOD SPECIMENOrdering Facility: [facility] Address: [address] [place] [address] Result Comment: <100 mg/dL, Optimal 100-129 mg/dL, Near optimal/above optimal 130-159 mg/dL, Borderline high 160-189 mg/dL, High >189 mg/dL, Very high Secondary prevention optimal LDL Cholesterol levels are recommended to be < 70 mg/dL Performed By: #### 2 4331-1, , 3 ####[facility] LABCLIA [id number] [address] [address] [place] Cholesterol in LDL/Cholesterol in HDL [Mass ratio] 2.80 {ratio} High <2.54 [facility] Comment on above: Order Comment: Nici men Type: BLOOD SPECIMENOrdering Facility: [facility] Address: [address] [place] [address] Result Comment: Refe rence: 1. National Cholesterol Education Program ATP III Guideline At-A-Glance Quick Desk Reference: National Heart, Lung, and Blood Fowler. National Institutes of Health. 2001: NIH Publication No. 01-3305. 2. An International Atherosclerosis Society position paper: global recommendations for the management of dyslipidemia: executive summary, Atherosclerosis. 2014: 232(2):410-413. Performed By: #### 2 4331-1, 11951-9, 3015-3 ####[facility] LABCLIA [id number] [place] [address] [place] Cholesterol in VLDL [Mass/Vol] 26 mg/dL Normal <30 [facility] Comment on above: Order Comment: Speci men Type: BLOOD SPECIMENOrdering Facility: [facility] Address: [address] [place] [address] Performed By: #### 2 4331-1, 29101-2, 3 ####[facility] LABCLIA [id number] [place] [address] [place] Cholesterol non HDL [Mass/Vol] 149 mg/dL High <130 [facility] Comment on above: Order Comment: Speci men Type: BLOOD SPECIMENOrdering Facility: [facility] Address: [address] [place] [address] Result Comment: <130 mg/dL, Optimal 130-159 mg/dL, Near optimal/above optimal 160-189 mg/dL, Borderline high 190-219 mg/dL, High >219 mg/dL, Very high Secondary prevention optimal non HDL Cholesterol levels are recommended to be <100 mg/dL Performed By: #### 2 4331-1, 66500-9, 3015-3 ####[facility] LABCLIA [id number] [address] [address] [place] Cholesterol.total/Alta sterol in HDL [Mass ratio] 4.39 {ratio} Normal <5.10 [facility] Comment on above: Order Comment: Nici men Type: BLOOD SPECIMENOrdering Facility: [facility] [facility] Address: [address] [place] [address] Performed By: #### 2 4331-1, 27353-4, 3015-3 ####[facility] LABCLIA [id number] [place] [address] [place] FASTING TIME 12 hrs Normal [facility] Comment on above: Order Comment: Speci men Type: BLOOD SPECIMENOrdering Facility: [facility] Address: [address] [place] [address] Performed By: #### 2 4331-1, 63831-9, 3016-3 ####[facility] LABCLIA [id number] [place] [address] [place] Triglyceride [Mass/Vol] 129 mg/dL Normal <150 C [facility] Comment on above: Order Comment: Speci men Type: BLOOD SPECIMENOrdering Facility: [facility] Address: [address] [place] [address] Result Comment: <150 mg/dL, Normal 150-199 mg/dL, Borderline high 200-499 mg/dL, High >499 mg/dL, Very high Performed By: #### 2 4331-1, 92649-7, 3015-3 ####[facility] LABIA [id number] [place] [address] [place] TSH SerPl-aCncon 05-23-2024 TSH Qn 0.183 m[IU]/L Low 0.270-4.200 [facility] Comment on above: Order Comment: Speci men Type: BLOOD SPECIMENOrdering Facility: [facility] Address: [address] [place] [address] Performed By: #### 2 4331-1, 10536-6, 6-3 ####[facility] LABIA [id number] [address] [place] CNOVon 11-28-2023 CNOV Office Visit (FAMPWS ) LINDSAY ACUNA ([id number]) 1945 F Date Time Provider Department 11/28/23 [...] follow up. Is planning on going to [employer] in June. No bowel, gi, or urinary concerns. Does have some urinary leakage. Hx of tubulovillous adenoma; due for colonoscopy; will contact GI in [place] Lipid: Does not watch diet or exercise. [...] mouth daily before breakfast. blood sugar diagnostic (Renovis Surgical TechnologiesTOUCH ULTRA TEST) test strip Test Blood Sugar [...] 1 tablet by mouth once daily. lancets (Renovis Surgical TechnologiesTOUCH DELICA PLUS LANCET) 30 gauge Test blood [...] Smoking stat (more content not included)... Normal [facility] Comprehensive metabolic 2000 panelon 11-27-2023 Albumin [Mass/Vol] 4.1 g/dL Normal 3.9-4.9 [facility] Comment on above: Order Comment: Speci men Type: BLOOD SPECIMENOrdering Facility: [facility] Address: [address] [place] [address] Performed By: #### 3 016-3, 46880-4, 05080-8 ####[facility] LABIA [id number] [place] [address] [place] ALP [Catalytic activity/Vol] 86 U/L Normal 34-123 [facility] Comment on above: Order Comment: Speci men Type: BLOOD SPECIMENOrdering Facility: [facility] Address: [address] [place] [address] Performed By: #### 3 016-3, 47636-6, 72666-4 ####[facility] LABIA [id number] [place] [address] [place] ALT [Catalytic activity/Vol] 13 U/L Normal 7-38 [facility] Comment on above: Order Comment: Speci men Type: BLOOD SPECIMENOrdering Facility: [facility] Address: [address] [place] [address] Performed By: #### 3 016-3, 10874-9, 50869-1 ####[facility] LABIA [id number] [place] [address] [place] Anion gap [Moles/Vol] 10 mmol/L Normal 8-15 [facility] Comment on above: Order Comment: Speci men Type: BLOOD SPECIMENOrdering Facility: [facility] Address: [address] [place] [address] Performed By: #### 3 016-3, 96424-7, 51064-6 ####[facility] LABIA [id number] [place] [address] [place] AST [Catalytic activity/Vol] 21 U/L Normal 13-35 [facility] Comment on above: Order Comment: Speci men Type: BLOOD SPECIMENOrdering Facility: [facility] Address: [address] [place] [address] Performed By: #### 3 016-3, 53833-9, 43033-3 ####[facility] LABIA [id number] [place] [address] [place] Bilirubin [Mass/Vol] 0.5 mg/dL Normal 0.2-1.3 [facility] Comment on above: Order Comment: Speci men Type: BLOOD SPECIMENOrdering Facility: [facility] Address: [address] [place] [address] Performed By: #### 3 016-3, 46710-9, 70821-0 ####[facility] LABIA [id number] [place] [address] [place] Calcium [Mass/Vol] 9.7 mg/dL Normal 8.5-10.2 [facility] Comment on above: Order Comment: Speci men Type: BLOOD SPECIMENOrdering Facility: [facility] Address: [address] [place] [address] Performed By: #### 3 016-3, 35870-1, 60542-2 ####[facility] LABIA [id number] [place] [address] [place] Chloride [Moles/Vol] 108 mmol/L High 98-107 [facility] Comment on above: Order Comment: Speci men Type: BLOOD SPECIMENOrdering Facility: [facility] Address: [address] [place] [address] Performed By: #### 3 016-3, 54788-9, 31539-4 ####[facility] LABCLIA [id number] [place] [address] [place] CO2 [Moles/Vol] 23 mmol/L Normal 22-30 [facility] Comment on above: Order Comment: Speci men Type: BLOOD SPECIMENOrdering Facility: [facility] Address: [address] [place] [address] Performed By: #### 3 016-3, 05384-1, 21612-1 ####[facility] LABIA [id number] [place] [address] [place] Creatinine [Mass/Vol] 1.37 mg/dL High 0.58-0.96 [facility] Comment on above: Order Comment: Speci men Type: BLOOD SPECIMENOrdering Facility: [facility] Address: [address] [place] [address] Performed By: #### 3 016-3, 70766-2, ####[facility] LABIA [id number] [place] [address] [place] Creatinine and Glomerular filtration rate.predicted panel (S/P/Bld) 39 mL/min/1.73m??? Low >=60 [facility] Comment on above: Order Comment: Speci men Type: BLOOD SPECIMENOrdering Facility: [facility] Address: [address] [place] [address] Result Comment: Nancy mated Glomerular Filtration Rate [...] actual GFR. Performed By: #### 3 016-3, 57522-0, 91161-2 ####[facility] LABIA [id number] [place] [address] [place] Glucose [Mass/Vol] 77 mg/dL Normal 74-99 [facility] Comment on above: Order Comment: Speci men Type: BLOOD SPECIMENOrdering Facility: [facility] Address: [address] [place] [address] Result Comment: The [place] Diabetes Association (ADA) provides guidance for cutoff [...] Standards of Medical Care in Diabetes 2016, [place] Diabetes Association. Diabetes Care. 2016.39(Suppl 1). Performed By: #### 3 016-3, 62687-0, 70142-7 ####[facility] LABCLIA [id number] [place] [address] [place] Potassium [Moles/Vol] 4.4 mmol/L Normal 3.7-5.1 [facility] Comment on above: Order Comment: Speci men Type: BLOOD SPECIMENOrdering Facility: [facility] Address: [address] [place] [address] Performed By: #### 3 016-3, 04262-8, 23157-1 ####[facility] LABCLIA [id number] [place] [address] [place] Protein [Mass/Vol] 6.6 g/dL Normal 6.3-8.0 [facility] Comment on above: Order Comment: Speci men Type: BLOOD SPECIMENOrdering Facility: [facility] Address: [address] [place] [address] Performed By: #### 3 016-3, 06088-0, 47238-5 ####[facility] LABCLIA [id number] [place] [address] [place] Sodium [Moles/Vol] 141 mmol/L Normal 136-144 [facility] Comment on above: Order Comment: Nici men Type: BLOOD SPECIMENOrdering Facility: [facility] Address: [address] [place] [address] Performed By: #### 3 016-3, 93278-7, 16721-5 ####[facility] [id number] [place] [address] [place] Urea nitrogen [Mass/Vol] 21 mg/dL Normal 7-21 [facility] Comment on above: Order Comment: Nici men Type: BLOOD SPECIMENOrdering Facility: [facility] Address: [address] [place] [address] Performed By: #### 3 016-3, 09062-4, 85945-6 ####[facility] [id number] [place] [address] [place] HbA1c (Bld)on 11-27-2023 Average glucose Estimated from glycated hemoglobin (Bld) [Mass/Vol] 166 mg/dL Normal [facility] Comment on above: Order Comment: Deana men Type: BLOOD SPECIMENOrdering Facility: [facility] Address: [address] [place] [address] Result Comment: eAG: (Estimated average glucose) is a calculated value from HgbA1c and is cash applications representative of the average blood glucose level in the last 2-3 month period. Performed By: #### 5 5454-3 ####[facility] [id number] [place] [address] [place] HbA1c (Bld) [Mass fraction] 7.4 % High 4.3-5.6 [facility] Comment on above: Order Comment: Deana men Type: BLOOD SPECIMENOrdering Facility: [facility] Address: [address] [place] [address] Result Comment: Amer [place] Diabetes Association guidelines indicate that patients with HgbA1c in the range 5.7-6.4% are at increased risk for development of diabetes, and intervention by lifestyle modification may be beneficial. HgbA1c greater or equal to 6.5% is considered diagnostic of diabetes. Performed By: #### 5 5454-3 ####[facility] LABCLIA [id number] [place] [address] [place] Lipid 1996 panelon 4 Cholesterol [Mass/Vol] 156 mg/dL Normal <200 [facility] Comment on above: Order Comment: Speci men Type: BLOOD SPECIMENOrdering Facility: [facility] Address: [address] [place] [address] Result Comment: <200 mg/dL, Desirable 200-239 mg/dL, Borderline high >239 mg/dL, High Performed By: #### 3 016-3, 25825-1, 56944-7 ####[facility] LABCLIA [id number] [address] [place] Cholesterol in HDL [Mass/Vol] 41 mg/dL Normal >39 [facility] Comment on above: Order Comment: Nici men Type: BLOOD SPECIMENOrdering Facility: [facility] Address: [address] [place] [address] Result Comment: 40-5 9 mg/dL, Acceptable >59 mg/dL, High: Negative risk factor for coronary heart disease <40 mg/dL, Low: Positive risk factor for coronary heart disease Performed By: #### 3 016-3, 60532-1, 46264-8 ####[facility] LABCLIA [id number] [address] [place] Cholesterol in LDL [Mass/Vol] 85 mg/dL Normal <100 [facility] Comment on above: Order Comment: Deana men Type: BLOOD SPECIMENOrdering Facility: [facility] Address: [address] [place] [address] Result Comment: <100 mg/dL, Optimal 100-129 mg/dL, Near optimal/above optimal 130-159 mg/dL, Borderline high 160-189 mg/dL, High >189 mg/dL, Very high Secondary prevention optimal LDL Cholesterol levels are recommended to be < 70 mg/dL Performed By: #### 3 016-3, 65494-3, 09853-7 ####[facility] LABCLIA [id number] [place] [address] [place] Cholesterol in LDL/Cholesterol in HDL [Mass ratio] 2.07 {ratio} Normal <2.54 [facility] Comment on above: Order Comment: Speci men Type: BLOOD SPECIMENOrdering Facility: [facility] Address: [address] [place] [address] Result Comment: Refe rence: 1. National Cholesterol Education Program ATP III Guideline At-A-Glance Quick Desk Reference: National Heart, Lung, and Blood Fowler. National Institutes of Health. 2001: NIH Publication No. 01-3305. 2. An International Atherosclerosis Society position paper: global recommendations for the management of dyslipidemia: executive summary, Atherosclerosis. 2014: 232(2):410-413. Performed By: #### 3 016-3, 54646-2, 36509-8 ####[facility] LABIA [id number] [place] [address] [place] Cholesterol in VLDL [Mass/Vol] 30 mg/dL High <30 [facility] Comment on above: Order Comment: Speci men Type: BLOOD SPECIMENOrdering Facility: [facility] Address: [address] [place] [address] Performed By: #### 3 016-3, 31825-8, 63173-2 ####[facility] LABIA [id number] [place] [address] [place] Cholesterol non HDL [Mass/Vol] 115 mg/dL Normal <130 [facility] Comment on above: Order Comment: Speci men Type: BLOOD SPECIMENOrdering Facility: [facility] Address: [address] [place] [address] Result Comment: <130 mg/dL, Optimal 130-159 mg/dL, Near optimal/above optimal 160-189 mg/dL, Borderline high 190-219 mg/dL, High >219 mg/dL, Very high Secondary prevention optimal non HDL Cholesterol levels are recommended to be <100 mg/dL Performed By: #### 3 016-3, 95098-0, 94114-8 ####[facility] LABCLIA [id number] [place] [address] [place] Cholesterol.total/Alta sterol in HDL [Mass ratio] 3.80 {ratio} Normal <5.10 [facility] Comment on above: Order Comment: Speci men Type: BLOOD SPECIMENOrdering Facility: [facility] Address: [address] [place] [address] Performed By: #### 3 016-3, 40956-4, ####[facility] LABCLIA [id number] [address] STATES OF [facility] FASTING TIME 12 hrs Normal [facility] Comment on above: Order Comment: Speci men Type: BLOOD SPECIMENOrdering Facility: [facility] Address: [address] [place] [address] Performed By: #### 3 016-3, 32392-0, ####[facility] LABCLIA [id number] [address] [place] Triglyceride [Mass/Vol] 148 mg/dL Normal <150 C [facility] Comment on above: Order Comment: Speci men Type: BLOOD SPECIMENOrdering Facility: [facility] Address: [address] [place] [address] Result Comment: <150 mg/dL, Normal 150-199 mg/dL, Borderline high 200-499 mg/dL, High >499 mg/dL, Very high Performed By: #### 3 016-3, 30275-9, ####[facility] LABCLIA [id number] [place] [address] [place] TSH SerPl-aCncon 11-27-2023 TSH Qn 1.870 m[IU]/L Normal 0.270-4.200 [facility] Comment on above: Order Comment: Speci men Type: BLOOD SPECIMENOrdering Facility: [facility] Address: [address] [place] [address] Performed By: #### 3 016-3, 38883-9, 37030-1 ####[facility] LABCLIA [id number] MILY AMIN [id number] OF [facility] CNOVon 10-10-2023 CNOV Office Visit (UCWSTR ) LINDSAY ACUNA ([id number]) 1945 F Date Time Provider Department 10/10/23 7:30 AM DAVID DUPREE [facility] During your visit today, we recorded the following information about you: Temperature Pulse Respiration Blood pressure 97.5 degrees 58/minute 18/minute 128/82 Weight 82.1 kg David Dupree APRN.[facility] [employer] 10/10/2023 8:11 AM Signed Subjective HPI Nontoxic-appearing [...] Rate and (more content not included)... Normal [facility] CNOVon 09-29-2023 CNOV Office Visit (UCWSTR ) LINDSAY ACUNA ([id number]) 1945 F Date Time Provider Department 09/29/23 2:15 PM RADHA LEVINE [facility] During your visit today, we recorded the following information about you: Temperature Pulse Respiration Blood pressure 97.8 degrees 54/minute 18/minute 148/91 Weight 84 kg Radha Levine APRN.CNP 09/29/2023 6:12 PM Signed This note was created using Easiaidriter. Subjective Lindsay Acuna is a 77 year old female. 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 Denies fever or chills Denies malaise or fatigue Denies new lotions, soaps, or medicines States that she was working out in the garden the same day the rash erupted. The history is provided by the patient. No hvac operations technician was used. Rash This is a [...] mouth daily before breakfast. blood sugar diagnostic (Renovis Surgical TechnologiesTOUCH ULTRA TEST) test strip Test Blood Sugar [...] 1 tablet by mouth once daily. lancets (Renovis Surgical TechnologiesTOUCH DELICA PLUS LANCET) 30 gauge Test blood sugars 1 time daily. Dx: Type 2 DM Controlled E11.9. Insulin: no Chlorhexidine Gluconate (PERIDEX) 0.12 % solution Use 15 mL as instructed twice daily. Rinse around mouth for 30 seconds then expectorate blood sugar diagnostic (Renovis Surgical TechnologiesTOUCH ULTRA TEST STRIP) test strip Use to [...] state. Hematologi (more content not included)... Normal [facility] Glucose,Bedsideon 04-16-2019 Glucose [Mass/Vol] 161 mg/dL High 70-100 [employer] [facility] Comment on above: Result Comment: Test performed by glucose meter. Results may be 10%-15% lower than serum/plasma values. (CLIA ID [id number]) Performed By: #### B GLU #### [employer] [address] [place] [address] Surgical Pathologyon 019 Surgical Pathology [id number] [facility] PATHOLOGY AND LABORATORY MEDICINE [address] [place] [address] FINAL SURGICAL PATHOLOGY REPORT ___ NAME: LINDSAY ACUNA : 1945 73 Y F BILLING NO.: [id number] LOCATION: 1XEO PROCEDURE 01/09/2019 DATE: SURGEON: SANTIAGO [...] characteristics determined by the clinical laboratories of [facility]. They have not been cleared [...] negativity on decalcified specimens. Professional Performing Location: [address] [address]. DEPARTMENT OF PATHOLOGY AND LABORATORY MEDICINE [place], [place] [address] Normal [facility] .Auto Diffon 08-22-2018 Ammonia mass conc (P) 1.10 10 3/mcL High 0.15-1.00 [facility] ([place]) Comment on above: Performed By: #### B MP, GFR #### [facility] [address] [place] [address] Basophils #/vol (Bld) 0.00 10 3/mcL Normal 0.00-0.19 [facility] ([place]) Comment on above: Performed By: #### B MP, GFR #### [address] [address] Basophils/100 WBC (Bld) 0.3 % Normal 0.0-2.5 [facility] ([place]) Comment on above: Performed By: #### B MP, GFR #### [address] [address] Eosinophils #/vol (Bld) 0.00 10 3/mcL Normal 0.00-0.40 [facility] ([place]) Comment on above: Performed By: #### B MP, GFR #### [address] [address] Eosinophils/100 WBC (Bld) 0.2 % Normal 0.0-7.0 [facility] ([place]) Comment on above: Performed By: #### B MP, GFR #### [address] [address] Lymphocytes #/vol (Bld) 2.20 10 3/mcL Normal 0.77-3.85 [facility] ([place]) Comment on above: Performed By: #### B MP, GFR #### [address] [address] Lymphocytes/100 WBC (Bld) 20.5 % Normal 10.0-50.0 [facility] ([place]) Comment on above: Performed By: #### B MP, GFR #### [address] [address] Monocytes/100 WBC (Bld) 10.5 % Normal 1.7-13.0 [facility] ([place]) Comment on above: Performed By: #### B MP, GFR #### [address] [address] Neutrophils/100 WBC (Bld) 68.5 % Normal 37.0-80.0 [facility] ([place]) Comment on above: Performed By: #### B MP, GFR #### [address] [address] .GFRon 08-22-2018 GFR Non- 33 ml/min/1.73sqm Normal [facility] ([place]) Comment on above: Result Comment: GFR Population [...] Performed By: #### B MP, GFR #### [place] [address] #### JOHN, DORY, ANEU #### [address] [address] GFR 40 ml/min/1.73sqm Normal [facility] ([place]) Comment on above: Result Comment: GFR Population [...] Performed By: #### B MP, GFR #### [place] [address] #### CBC, ADIFF, ANEU #### [address] [address] .NEUABSon 08-22-2018 Neutrophils #/vol (Bld) 7.40 10 3/mcL High 2.85-6.16 [facility] ([place]) Comment on above: Performed By: #### B MP, GFR #### [place] [address] BMPon 08-22-2018 Calcium mass conc 8.3 mg/dL Low 8.4-10.2 [facility] ([place]) Comment on above: Performed By: #### B MP, GFR #### [place] [address] #### CBC, ADIFF, ANEU #### [address] [address] Chloride molar conc 104 mmol/L Normal 98-107 [facility] ([place]) Comment on above: Performed By: #### B MP, GFR #### [place] [address] #### CBC, ADIFF, ANEU #### [address] [address] CO2 molar conc 25 mmol/L Normal 23-31 [facility] ([place] Comment on above: Performed By: #### B MP, GFR #### [place] [address] #### CBC, ADIFF, ANEU #### [address] [address] Creatinine mass conc 1.53 mg/dL High 0.55-1.02 [facility] ([place]) Comment on above: Performed By: #### B MP, GFR #### [place] [address] #### CBC, ADIFF, ANEU #### [address] [address] Electrolyte Balance 10.0 mEq/L Normal [facility] ([place]) Comment on above: Performed By: #### B MP, GFR #### [place] [address] #### CBC, ADIFF, ANEU #### [address] [address] Glucose mass conc 149 mg/dL High 83-110 [facility] ([place]) Comment on above: Performed By: #### B MP, GFR #### [place] [address] #### CBC, ADIFF, ANEU #### [address] [address] Potassium molar conc 4.3 mmol/L Normal 3.5-5.1 [facility] ([place]) Comment on above: Performed By: #### B MP, GFR #### [place] [address] #### CBC, ADIFF, ANEU #### [address] [address] Sodium molar conc 139 mmol/L Normal 136-145 [facility] ([place]) Comment on above: Performed By: #### B MP, GFR #### [place] [address] #### CBC, ADIFF, ANEU #### [address] [address] Urea nitrogen mass conc 32 mg/dL High 7-18 [facility] ([place]) Comment on above: Performed By: #### B MP, GFR #### [place] [address] #### CBC, ADIFF, ANEU #### [address] [address] Urea nitrogen/Creatinine mass ratio 21 ratio Normal 7-27 [facility] ([place]) Comment on above: Performed By: #### B MP, GFR #### [place] [address] #### CBC, ADIFF, ANEU #### [address] [address] CBCon 08-22-2018 Erythrocyte distribution width Ratio (RBC) 12.6 % Normal 11.5-14.5 [facility] ([place] Comment on above: Performed By: #### B MP, GFR #### [place] [address] Hematocrit Volume Fraction (Bld) 27.5 % Low 37.0-47.0 [facility] ([place] Comment on above: Performed By: #### B MP, GFR #### [address] [address] Hemoglobin mass conc (Bld) 9.2 G/dL Low 12.0-16.0 [facility] ([place]) Comment on above: Performed By: #### B MP, GFR #### [address] [address] MCH Entitic mass (RBC) 30.1 pg Normal 27.0-31.2 [facility] ([place]) Comment on above: Performed By: #### B MP, GFR #### [address] [address] MCHC mass conc (RBC) 33.5 G/dL Normal 33.0-37.0 [facility] ([place]) Comment on above: Performed By: #### B MP, GFR #### [place] [address] MCV Entitic volume (RBC) 89.8 fL Normal 80.0-94.0 [facility] ([place]) Comment on above: Performed By: #### B MP, GFR #### [address] [address] Platelet mean volume Entitic volume (Bld) 9.3 fL Normal 7.4-10.4 [facility] ([place] Comment on above: Performed By: #### B MP, GFR #### [address] [address] Platelets #/vol (Bld) 224 10 3/mcL Normal 130-400 [facility] ([place]) Comment on above: Performed By: #### B MP, GFR #### [address] [address] RBC #/vol (Bld) 3.06 10 6/mcL Low 4.20-5.40 [facility] ([place]) Comment on above: Performed By: #### B MP, GFR #### [address] [address] WBC #/vol (Bld) 10.80 10 3/mcL Normal 4.60-10.80 [facility] ([place]) Comment on above: Performed By: #### B MP, GFR #### [place] [address] XR KNEE 1 OR 2 VIEWS RIGHTon [...] Date: 08/21/2018 9:55:37 AM Normal [facility] ([place]) CT KNEE W/O CONTRAST RIGHTon 08-09-2018 CT [...] Date: 08/09/2018 5:04:12 PM Normal [facility] ([place]) .Auto Diffon 08-06-2018 Ammonia mass conc (P) 0.80 10 3/mcL Normal 0.15-1.00 [facility] ([place]) Comment on above: Performed By: #### C BC, ADIFF, ANEU #### [address] [address] #### A1C #### [address] [address] Basophils #/vol (Bld) 0.10 10 3/mcL Normal 0.00-0.19 [facility] ([place]) Comment on above: Performed By: #### C BC, ADIFF, ANEU #### [address] [address] #### A1C #### [address] [address] Basophils/100 WBC (Bld) 0.6 % Normal 0.0-2.5 A [facility] ([place]) Comment on above: Performed By: #### C SARAH, ADIFF, ANEU #### [address] [address] #### A1C #### [address] [address] Eosinophils #/vol (Bld) 0.20 10 3/mcL Normal 0.00-0.40 [facility] ([place]) Comment on above: Performed By: #### C SARAH, DORY, ANEU #### [address] [address] #### A1C #### [address] [address] Eosinophils/100 WBC (Bld) 1.7 % Normal 0.0-7.0 [facility] ([place]) Comment on above: Performed By: #### C BC, ADIFF, ANEU #### [address] [address] #### A1C #### [address] [address] Lymphocytes #/vol (Bld) 1.90 10 3/mcL Normal 0.77-3.85 [facility] ([place]) Comment on above: Performed By: #### C BC, ADIFF, ANEU #### [place] [address] #### A1C #### [facility] [address] [place] [address] Lymphocytes/100 WBC (Bld) 20.8 % Normal 10.0-50.0 [facility] ([place]) Comment on above: Performed By: #### C BC, ADIFF, ANEU #### [address] [address] #### A1C #### [facility] [address] [place] [address] Monocytes/100 WBC (Bld) 9.3 % Normal 1.7-13.0 A [facility] ([place]) Comment on above: Performed By: #### C BC, ADIFF, ANEU #### [address] [address] #### A1C #### [address] [address] Neutrophils/100 WBC (Bld) 67.6 % Normal 37.0-80.0 [facility] ([place]) Comment on above: Performed By: #### C BC, ADIFF, ANEU #### [address] [address] #### A1C #### [address] [address] .GFRon 08-06-2018 GFR 51 ml/min/1.73sqm Normal [facility] ([place]) Comment on above: Result Comment: GFR Population [...] Performed By: #### B MP, GFR #### [address] [address] GFR Non- 42 ml/min/1.73sqm Normal [facility] ([place]) Comment on above: Result Comment: GFR Population [...] Performed By: #### B MP, GFR #### [place] [address] .NEUABSon 08-06-2018 Neutrophils #/vol (Bld) 6.20 10 3/mcL High 2.85-6.16 [facility] ([place]) Comment on above: Performed By: #### C BC, KEITHIFF, ANEU #### [address] [address] #### A1C #### [place] [address] A1Con 08-06-2018 Hemoglobin A1c/Hemoglobin.total mass fraction (Bld) 7.9 % High 4.5-6.2 [facility] ([place]) Comment on above: Performed By: #### C BC, ADIFF, ANEU #### [address] [address] #### A1C #### [place] [address] BMPon 08-06-2018 Calcium mass conc 9.2 mg/dL Normal 8.4-10.2 [facility] ([place]) Comment on above: Performed By: #### B MP, GFR #### [place] [address] Chloride molar conc 105 mmol/L Normal 98-107 [facility] ([place]) Comment on above: Performed By: #### B MP, GFR #### [address] [address] CO2 molar conc 27 mmol/L Normal 23-31 [facility] ([place]) Comment on above: Performed By: #### B MP, GFR #### [address] [address] Creatinine mass conc 1.25 mg/dL High 0.55-1.02 [facility] ([place]) Comment on above: Performed By: #### B MP, GFR #### [address] [address] Electrolyte Balance 11.0 mEq/L Normal [facility] ([place]) Comment on above: Performed By: #### B MP, GFR #### [address] [address] Glucose mass conc 70 mg/dL Low 83-110 [facility] ([place]) Comment on above: Performed By: #### B MP, GFR #### [place] [address] Potassium molar conc 5.0 mmol/L Normal 3.5-5.1 [facility] ([place]) Comment on above: Performed By: #### B MP, GFR #### [place] [address] Sodium molar conc 143 mmol/L Normal 136-145 [facility] ([place]) Comment on above: Performed By: #### B MP, GFR #### [address] [address] Urea nitrogen mass conc 26 mg/dL High 7-18 A [facility] ([place]) Comment on above: Performed By: #### B MP, GFR #### [place] [id number] Urea nitrogen/Creatinine mass ratio 21 ratio Normal 7-27 [facility] ([place]) Comment on above: Performed By: #### B MP, GFR #### [address] [address] CBCon 08-06-2018 Erythrocyte distribution width Ratio (RBC) 12.2 % Normal 11.5-14.5 [facility] ([place]) Comment on above: Performed By: #### C DORY SMITH, ANEU #### [address] [address] #### A1C #### [place] [address] Hematocrit Volume Fraction (Bld) 34.6 % Low 37.0-47.0 [facility] ([place]) Comment on above: Performed By: #### C BCDORY, ANEU #### [address] [address] #### A1C #### [place] [address] Hemoglobin mass conc (Bld) 11.7 G/dL Low 12.0-16.0 [facility] ([place]) Comment on above: Performed By: #### C DORY SMITH, ANEU #### [place] [address] #### A1C #### [place] [address] MCH Entitic mass (RBC) 30.6 pg Normal 27.0-31.2 [facility] ([place]) Comment on above: Performed By: #### C DORY SMITH, ANEU #### [address] [address] #### A1C #### [place] [address] MCHC mass conc (RBC) 33.7 G/dL Normal 33.0-37.0 [facility] ([place]) Comment on above: Performed By: #### C BC ADIFF, ANEU #### [address] [address] #### A1C #### [place] [id number] MCV Entitic volume (RBC) 90.9 fL Normal 80.0-94.0 [facility] ([place]) Comment on above: Performed By: #### C DORY SMITH, ANEU #### [address] [address] #### A1C #### [address] [address] Platelet mean volume Entitic volume (Bld) 8.8 fL Normal 7.4-10.4 [facility] ([place]) Comment on above: Performed By: #### C BC ADIFF, ANEU #### [address] [address] #### A1C #### [address] [address] Platelets #/vol (Bld) 355 10 3/mcL Normal 130-400 A [facility] ([place]) Comment on above: Performed By: #### C BC ADIFF, ANEU #### [place] [address] #### A1C #### [address] [address] RBC #/vol (Bld) 3.81 10 6/mcL Low 4.20-5.40 [facility] ([place]) Comment on above: Performed By: #### C BC ADIFF, ANEU #### [address] [address] #### A1C #### [address] [address] WBC #/vol (Bld) 9.20 10 3/mcL Normal 4.60-10.80 [facility] ([place]) Comment on above: Performed By: #### C BC ADIFF, ANEU #### [place] [id number] #### A1C #### [address] [address] Vital Signs Date Time Vital Sign Value Performing Clinician Facility 10-02-2024 09:21-0400 Body height 167.[address] Kameron Caruso MD Work Phone: [facility] 10-02-2024 09:21-0400 Diastolic blood pressure 71 mm[Hg] Dr. Kameron Caruso MD Work Phone: [facility] 10-02-2024 09:21-0400 Heart rate 77 /min Dr. Kameron Caruso MD Work Phone: [facility] 10-02-2024 09:21-0400 Respiratory rate 16 /min Dr. Kameron Caruso MD Work Phone: [facility] 10-02-2024 09:21-0400 Systolic blood pressure 111 mm[Hg] Dr. Kameron Caruso MD Work Phone: [facility] 09-09-2024 09:02-0400 Heart rate 100 /min SILVINO SCHEATZLE DO [facility] 09-09-2024 07:58-0400 Blood Pressure Cuff Size SILVINO SCHEATZLE DO [facility] 09-09-2024 07:58-0400 Blood Pressure Location SILVINO SCHEATZLE DO [facility] 09-09-2024 07:58-0400 Blood Pressure Method SILVINO SCHEATZLE DO [facility] 09-09-2024 07:58-0400 Body temperature 96.8 [degF] SILVINO SCHEATZLE DO [facility] 09-09-2024 07:58-0400 Diastolic Blood Pressure Non-Invasive 78 mm[Hg] SILVINO SCHEATZLE DO [facility] 09-09-2024 07:58-0400 Heart rate 110 /min SILVINO SCHEATZLE DO [facility] 09-09-2024 07:58-0400 Reason For Taking VItal Signs SILVINO SCHEATZLE DO [facility] 09-09-2024 07:58-0400 Respiratory rate 16 /min SILVINO SCHEATZLE DO [facility] 09-09-2024 07:58-0400 Systolic Blood Pressure Non-Invasive 122 mm[Hg] SILVINO SCHEATZLE DO [place] 09-09-2024 02:45-0400 Body temperature 97.7 [degF] SILVINO PALAKATZLE DO [facility] [place] 09-09-2024 02:45-0400 Diastolic Blood Pressure Non-Invasive 60 mm[Hg] SILVINO CIDATZSHITAL DO [place] 09-09-2024 02:45-0400 Heart rate 92 /min SILVINO PALAKATZLE DO [facility] 09-09-2024 02:45-0400 Respiratory rate 16 /min SILVINO CIDATZSHITAL DO [facility] 09-09-2024 02:45-0400 Systolic Blood Pressure Non-Invasive 108 mm[Hg] [facility]ITAL [facility] 09-08-2024 22:28-0400 Blood Pressure Cuff Size SILVINO CIDATZSHITAL DO [facility] 09-08-2024 22:28-0400 Blood Pressure Location SILVINO CIDATZSHITAL DO [facility] 09-08-2024 22:28-0400 Blood Pressure Method SILVINO CIDATZSHITAL DO [facility] 09-08-2024 22:28-0400 Body temperature 97.88 [degF] SILVINO C[facility]ATZSHITAL DO [facility] 09-08-2024 22:28-0400 Diastolic Blood Pressure Non-Invasive 54 mm[Hg] SILVINO CIDATZSHITAL DO [facility] 09-08-2024 22:28-0400 Heart rate 92 /min SILVINO HA DO [facility] 09-08-2024 22:28-0400 Reason For Taking VItal Signs SILVINO HA DO [place] 09-08-2024 22:28-0400 Respiratory rate 16 /min SILVINO CIDATZLE DO [place] 09-08-2024 22:28-0400 Systolic Blood Pressure Non-Invasive 118 mm[Hg] SILVINO CIDATZLE DO [place] 09-08-2024 18:21-0400 Heart rate 90 /min SILVINO CIDATZSHITAL DO [facility] 09-08-2024 09:08-0400 Blood Pressure Cuff Size SILVINO CIDATZSHITAL DO [place] 09-08-2024 09:08-0400 Blood Pressure Location SILVINO CIDATZSHITAL DO [facility] [place] 09-08-2024 09:08-0400 Blood Pressure Method SILIVNO CIDATZSHITAL DO [place] 09-08-2024 09:08-0400 Heart rate 114 /min SILVINO HA DO [facility] [place] 09-08-2024 09:08-0400 Reason For Taking VItal Signs SILVINO CIDATZSHITAL DO [facility] 09-04-2024 10:54-0400 Body temperature 96.62 [degF] SILVINO CIDATZLE DO [facility] 09-03-2024 00:26-0400 Body temperature 97.34 [degF] SILVINO CIDATZLE DO [facility] 08-30-2024 22:54-0400 Body temperature 98.06 [degF] SILVINO CIDATZLE DO [facility] 08-26-2024 10:36-0400 Body weight 76 kg [facility]-19-[facility] 06:00-0400 Body weight 75.3 kg [facility] 08-15-2024 14:27-0400 Body height 170.2 cm [facility] 08-15-2024 14:27-0400 Body weight 75.4 kg [facility] 08-15-2024 14:27-0400 Body weight 26.03 kg/m2 SILVINO HA DO [facility] 08-15-2024 09:02-0400 Diastolic blood pressure 69 mm[Hg] Prema Ramos MD Work Phone: [facility] 08-15-2024 09:02-0400 Systolic blood pressure 128 mm[Hg] Prema Ramos MD Work Phone: [facility] 08-15-2024 07:28-0400 Heart rate 86 /min Prema Ramos MD Work Phone: [facility] 08-15-2024 07:18-0400 Body temperature 97.3 [degF] Prema Ramos MD Work Phone: [facility] 08-15-2024 07:18-0400 Respiratory rate 23 /min Prema Ramos MD Work Phone: [facility] 08-15-2024 07:18-0400 SaO2% (BldA) [Mass fraction] 95 % Prema Ramos MD Work Phone: [facility] 08-05-2024 08:00-0400 Body height 170.2 cm Prema Ramos MD Work Phone: [facility] 08-05-2024 08:00-0400 Body mass index (BMI) [Ratio] 26.94 kg/m2 Prema Ramos MD Work Phone: [facility] 08-05-2024 08:00-0400 Body weight 78.02 kg Prema Ramos MD Work Phone: [facility] 08-02-2024 13:52-0400 Body temperature 98 [degF] Dr. Kameron Caruso MD Work Phone: 2(188)[phone] [address] 08-02-2024 13:52-0400 Diastolic blood pressure 91 mm[Hg] Dr. Kameron Caruso MD Work Phone: 0(155)[phone] [address] 08-02-2024 13:52-0400 Heart rate 109 /min Dr. Kameron Caruso MD Work Phone: 7(089)[phone] [address] 08-02-2024 13:52-0400 Respiratory rate 16 /min Dr. Kameron Caruso MD Work Phone: 8(440)[phone] [address] 08-02-2024 13:52-0400 SaO2% (BldA) [Mass fraction] 98 % Dr. Kameron Caruso MD Work Phone: [facility] 08-02-2024 13:52-0400 Systolic blood pressure 153 mm[Hg] Dr. Kameron Caruso MD Work Phone: [facility] 08-02-2024 12:46-0400 Body height 167.[address] Kameron Caruso MD Work Phone: [facility] 08-02-2024 12:46-0400 Body mass index (BMI) [Ratio] 26.6 kg/m2 Dr. Kameron Caruso MD Work Phone: [facility] 08-02-2024 12:46-0400 Body weight [address] Kameron Caruso MD Work Phone: [facility] 06-26-2024 09:39-0500 Body mass index (BMI) [Ratio] 27.25 kg/m2 Emma Sotomayor APRN.CNP Work Phone: [facility] 06-26-2024 09:39-0500 Body weight 78.93 kg Emmadanielle Canaleshof MOTORCYCLE MECHANIC APPRENTICE.FENCE RIDER Work Phone: [facility] 06-26-2024 09:39-0500 Diastolic blood pressure 88 mm[Hg] Emma Tannhof MOTORCYCLE MECHANIC APPRENTICE.FENCE RIDER Work Phone: [facility] 06-26-2024 09:39-0500 Heart rate 93 /min Emma Tannhof MOTORCYCLE MECHANIC APPRENTICE.FENCE RIDER Work Phone: [facility] 06-26-2024 09:39-0500 Respiratory rate 16 /min Emma Tannhof MOTORCYCLE MECHANIC APPRENTICE.FENCE RIDER Work Phone: [facility] 06-26-2024 09:39-0500 SaO2% (BldA) [Mass fraction] 98 % Emma Canaleshof MOTORCYCLE MECHANIC APPRENTICE.FENCE RIDER Work Phone: [facility] 06-26-2024 09:39-0500 Systolic blood pressure 144 mm[Hg] Emma Tannhof MOTORCYCLE MECHANIC APPRENTICE.FENCE RIDER Work Phone: [facility] 05-31-2024 08:56-0500 Diastolic blood pressure 84 mm[Hg] Kameron Caruso MD Work Phone: [facility] 05-31-2024 08:56-0500 Systolic blood pressure 136 mm[Hg] Kameron Caruso MD Work Phone: [facility] 05-31-2024 08:47-0500 Body mass index (BMI) [Ratio] 27.28 kg/m2 Kameron aCruso MD Work Phone: [facility] 05-31-2024 08:47-0500 Body weight 79 kg Kameron Caruso MD Work Phone: [facility] 05-31-2024 08:47-0500 Heart rate 100 /min Kameron Caruso MD Work Phone: [facility] 05-31-2024 08:47-0500 Respiratory rate 18 /min Kameron Caruso MD Work Phone: [facility] 11-28-2023 09:42-0400 Diastolic blood pressure 78 mm[Hg] Kameron Caruso MD Work Phone: [facility] 11-28-2023 09:42-0400 Systolic blood pressure 142 mm[Hg] Kameron Caruso MD Work Phone: [facility] 11-28-2023 09:41-0400 Body mass index (BMI) [Ratio] 27.82 kg/m2 Kameron Caruso MD Work Phone: [facility] 11-28-2023 09:41-0400 Body weight 80.56 kg Kameron Caruso MD Work Phone: [facility] 11-28-2023 09:41-0400 Heart rate 68 /min Kameron Caruso MD Work Phone: [facility] 11-28-2023 09:41-0400 Respiratory rate 18 /min Kameron Caruso MD Work Phone: [facility] 10-10-2023 07:31-0400 Body mass index (BMI) [Ratio] 28.35 kg/m2 David Pendyi MOTORCYCLE MECHANIC APPRENTICE.FENCE RIDER Work Phone: [facility] 10-10-2023 07:31-0400 Body temperature 97.5 [degF] [facility] MOTORCYCLE MECHANIC APPRENTICE.FENCE RIDER Work Phone: [facility] 10-10-2023 07:31-0400 Body weight 82.1 kg David Pendleantonia MOTORCYCLE MECHANIC APPRENTICE.FENCE RIDER Work Phone: [facility] 10-10-2023 07:31-0400 Diastolic blood pressure 82 mm[Hg] David Pendlebury MOTORCYCLE MECHANIC APPRENTICE.FENCE RIDER Work Phone: [facility] 10-10-2023 07:31-0400 Heart rate 58 /min David Pendleantonia MOTORCYCLE MECHANIC APPRENTICE.FENCE RIDER Work Phone: [facility] 10-10-2023 07:31-0400 Respiratory rate 18 /min David Pendleantonia MOTORCYCLE MECHANIC APPRENTICE.FENCE RIDER Work Phone: [facility] 10-10-2023 07:31-0400 SaO2% (BldA) [Mass fraction] 100 % David Dupree MOTORCYCLE MECHANIC APPRENTICE.FENCE RIDER Work Phone: [facility] 10-10-2023 07:31-0400 Systolic blood pressure 128 mm[Hg] David Dupree MOTORCYCLE MECHANIC APPRENTICE.FENCE RIDER Work Phone: [facility] 09-29-2023 14:14-0400 Body mass index (BMI) [Ratio] 29 kg/m2 Radha Levine MOTORCYCLE MECHANIC APPRENTICE.FENCE RIDER Work Phone: [facility] 09-29-2023 14:14-0400 Body temperature 97.81 [degF] Radha Levine MOTORCYCLE MECHANIC APPRENTICE.FENCE RIDER Work Phone: [facility] 09-29-2023 14:14-0400 Body weight 84 kg Radha Levine MOTORCYCLE MECHANIC APPRENTICE.FENCE RIDER Work Phone: [facility] 09-29-2023 14:14-0400 Diastolic blood pressure 91 mm[Hg] Radha Levine MOTORCYCLE MECHANIC APPRENTICE.FENCE RIDER Work Phone: [facility] 09-29-2023 14:14-0400 Heart rate 54 /min Radha Levine MOTORCYCLE MECHANIC APPRENTICE.FENCE RIDER Work Phone: [facility] 09-29-2023 14:14-0400 Respiratory rate 18 /min Radha Levine MOTORCYCLE MECHANIC APPRENTICE.FENCE RIDER Work Phone: [facility] 09-29-2023 14:14-0400 SaO2% (BldA) [Mass fraction] 99 % Radha Levine MOTORCYCLE MECHANIC APPRENTICE.FENCE RIDER Work Phone: [facility] 09-29-2023 14:14-0400 Systolic blood pressure 148 mm[Hg] Radha Levine MOTORCYCLE MECHANIC APPRENTICE.FENCE RIDER Work Phone: [facility] 05-27-2022 09:42-0500 Body weight 83.83 kg Kameron Caruso MD Work Phone: [facility] 05-27-2022 09:42-0500 Diastolic blood pressure 84 mm[Hg] Kameron Caruso MD Work Phone: [facility] 05-27-2022 09:42-0500 Heart rate 68 /min Kameron Caruso MD Work Phone: [facility] 05-27-2022 09:42-0500 Respiratory rate 16 /min Kameron Caruso MD Work Phone: [facility] 05-27-2022 09:42-0500 Systolic blood pressure 136 mm[Hg] Kameron Caruso MD Work Phone: [facility] 03-02-2022 10:52-0400 Diastolic blood pressure 76 mm[Hg] Emma Tannhof MOTORCYCLE MECHANIC APPRENTICE.FENCE RIDER Work Phone: [facility] 03-02-2022 10:52-0400 Heart rate 92 /min Emma Tannhof MOTORCYCLE MECHANIC APPRENTICE.FENCE RIDER Work Phone: [facility] 03-02-2022 10:52-0400 Respiratory rate 18 /min Emma Tannhof MOTORCYCLE MECHANIC APPRENTICE.FENCE RIDER Work Phone: [facility] 03-02-2022 10:52-0400 Systolic blood pressure 140 mm[Hg] Emma Tannhof MOTORCYCLE MECHANIC APPRENTICE.FENCE RIDER Work Phone: [facility] 11-23-2021 09:39-0400 Body weight 83.1 kg Kameron Caruso MD Work Phone: [facility] 11-23-2021 09:39-0400 Diastolic blood pressure 80 mm[Hg] Kameron Caruso MD Work Phone: [facility] 11-23-2021 09:39-0400 Heart rate 84 /min Kameron Caruso MD Work Phone: [facility] 11-23-2021 09:39-0400 Respiratory rate 16 /min Kameron Caruso MD Work Phone: [facility] 11-23-2021 09:39-0400 Systolic blood pressure 138 mm[Hg] Kameron Caruso MD Work Phone: [facility] 10-16-2019 10:09-0400 BP Diastolic 72 mm[Hg] [place], [place] 10-16-2019 10:09-0400 BP Systolic 144 mm[Hg] Santiago Miller [facility] [place] 10-16-2019 10:09-0400 Pulse (Heart Rate) 62 /min Santiago Miller [facility] 10-16-2019 10:09-0400 Pulse Oximetry 98 % Santiago Miller [facility] , [place] 10-16-2019 10:09-0400 Respiratory Rate 18 /min Santiago Miller [facility] , [place] 10-16-2019 09:15-0400 BMI (Body Mass Index) 29.44 kg/m2 Santiago Miller [facility] 10-16-2019 09:15-0400 Body Temperature 97.81 [degF] Santiago Miller [facility] , [place] 10-16-2019 09:15-0400 Body weight 85.28 kg Santiago Miller [facility] , [place] 10-16-2019 09:15-0400 Height 170.2 cm Santiago Miller [facility] , [place] 01-09-2019 12:06-0400 BP Diastolic 73 mm[Hg] Santiago Miller [facility] , [place] 01-09-2019 12:06-0400 BP Systolic 121 mm[Hg] [facility] , [place] 01-09-2019 11:50-0400 Pulse (Heart Rate) 64 /min Santiago Miller [facility] 01-09-2019 11:50-0400 Pulse Oximetry 100 % Santiago Miller [facility] , [place] 01-09-2019 11:50-0400 Respiratory Rate 18 /min Santiago Miller [facility] 01-09-2019 10:28-0400 BMI (Body Mass Index) 28.82 kg/m2 Santiago Miller [facility] 01-09-2019 10:28-0400 Body weight 83.46 kg Santiago Miller [facility] , [place] 01-09-2019 10:28-0400 Height 170.2 cm Santiago Miller [facility] , [place] 01-09-2019 10:27-0400 Body Temperature 97.5 [degF] Santiago Miller [facility] Encounters Encounter Date Encounter Type Care Provider Facility Start: 01-21-2025 ambulatory Safia Yusuf cility:[facility] Start: 01-14-2025 ambulatory Efewongbe Oleghe OLS Fa cility:[facility] Start: 01-07-2025 ambulatory Efewongbe Cheoghe OLS Fa cility:[facility] Start: 01-07-2025 Safia Martin - [place] Start: 12-31-2024 End: 12-31-[address] Kameron Caruso MD Work Phone: [facility] [place] [facility] [place] Start: 12-31-2024 End: 12-31-2024 Dr. Safia Ruelas MD -[facility] Work Phone: Start: 12-24-2024 ambulatory Efewongbe Cheoghe OLS Fa cility:[facility] Start: 12-24-2024 Safia Martin - [place] Start: 12-17-2024 ambulatory Efewongbe Oleghe OLS Fa cility:[facility] Start: 12-17-2024 Safia Martin - [place] Start: 12-10-2024 ambulatory Efewongbe Oleghe OLS Fa cility:[facility] Start: 12-10-2024 Safia Martin - [place] Start: 12-03-2024 ambulatory Efewongbe Oleghe OLS Fa cility:[facility] Start: 12-03-2024 Safia Martin - [place] Start: 11-28-2024 End: 11-28-[address] Kameron Caruso MD Work Phone: [facility] [place] [facility] [place] Start: 11-28-2024 End: 11-28-2024 Bret WILKERSON -[facility] Work Phone: Start: 11-26-2024 ambulatory Efewongbe Oleghe OLS Fa cility:[facility] Start: 11-26-2024 Registered Referred Safia SOMMERL - [place] Start: 11-26-2024 Safia Torres Start: 11-25-2024 ambulatory Kameron Caruso Facilit y:[facility] Start: 11-25-2024 Registered Referred Safia Torres Start: 11-25-2024 Safia Torres Start: 11-20-2024 End: 11-20-[address] Kameron Caruso MD Work Phone: [facility] [place] [facility] [place] Start: 11-20-2024 End: 11-20-2024 Bret WILKERSON -[facility] Work Phone: Start: 11-19-2024 ambulatory Efjean marieongbe Oleghe OLS Fa cility:[facility] Start: 11-19-2024 Registered Referred Safia Torres Start: 11-19-2024 Safia Torres Start: 11-12-2024 ambulatory Efewongbe Oleghe OLS Fa cility:[facility] Start: 11-12-2024 Registered Referred Safia Torres Start: 11-12-2024 Safia Torres Start: 11-05-2024 ambulatory Efewongbe Oleghe OLS Fa cility:[facility] Start: 11-05-2024 Registered Referred Safia Torres Start: 11-05-2024 Safia Torres Start: 10-30-2024 End: 10-30-[address] Kameron Caruso MD Work Phone: [facility] [place] [facility] [place] Start: 10-30-2024 End: 10-30-2024 [facility] Start: 10-30-2024 End: 10-30-2024 [facility] Start: 10-29-2024 End: 10-29-[address] Safia Ruelas MD -[facility] Work Phone: Start: 10-29-2024 End: 10-29-[address] Kameron Caruso MD Work Phone: [facility] [place] [facility] [place] Start: 10-29-2024 Registered Referred Safia Torres Start: 10-29-2024 End: 10-29-2024 Dr. Safia Ruelas MD -[facility] Work Phone: Start: 10-23-2024 ambulatory Safia Ruelas OLS Fa cility:[facility] Start: 10-23-2024 Registered Referred Safia Torres Start: 10-23-2024 Safia Torres Start: 10-22-2024 End: 10-22-2024 Patient encounter procedure Bret WILKERSON -[facility] Work Phone: Start: 10-22-2024 End: 10-22-[address] Kameron Caruso MD Work Phone: [facility] [place] [facility] [place] Start: 10-22-2024 Registered Referred Safia Torres Start: 10-22-2024 End: 10-22-2024 Bret WILKERSON -[facility] Work Phone: Start: 10-15-2024 ambulatory Safia VARGAS Fa cility:[facility] Start: 10-15-2024 Registered Referred Safia Torrse Start: 10-15-2024 Safia Torres Start: 10-09-2024 End: 10-09-[address] Kameron Caruso MD Work Phone: [facility] [place] [facility] [place] Start: 10-09-2024 End: 10-09-2024 Patient encounter procedure Bret WILKERSON -[facility] Work Phone: Start: 10-09-2024 End: 10-09-2024 Bret WILKERSON -[facility] Work Phone: Start: 10-08-2024 ambulatory Efewongbe Oleghe OLS Fa cility:[facility] Start: 10-08-2024 Registered Referred Safia Torres Start: 10-08-2024 Safia Torres Start: 10-02-2024 End: 10-02-[address] Mj Benavides MD -[facility] Work Phone: Start: 10-02-2024 End: 10-02-2024 Dr. Mj Benavides MD -[facility] Work Phone: Start: 10-02-2024 End: 10-02-[address] Kameron Caruso MD Work Phone: [facility] Work Phone: Start: 10-01-2024 ambulatory Efewongbe Olebonie OLS Fa cility:[facility] Start: 10-01-2024 Registered Referred Safia FordeVeronica Torres Start: 10-01-2024 Safia Forde Veronica Torres Start: 09-29-2024 ambulatory Efewongbe Oleghe OLS Fa cility:[facility] Start: 09-29-2024 Registered Referred Safia Torres Start: 09-29-2024 Safia Torres Start: 09-24-2024 ambulatory Efewongbe Oleghe OLS Fa cility:[facility] Start: 09-24-2024 Registered Referred Safia Torres Start: 09-24-2024 Safia Torres Start: 09-17-2024 ambulatory Efewongbe Oleghe OLS Fa cility:[facility] Start: 09-17-2024 Registered Referred Safia Torres Start: 09-17-2024 Safia Torres Start: 09-11-2024 End: 09-11-2024 ambulatory [facility] Facility:[facility] Start: 09-11-2024 End: 09-11-2024 Patient encounter procedure Bret Snyder [employer]PER[employer]OR-[employer] -[facility] Work Phone: Start: 09-11-2024 End: 09-11-2024 Bret Snyder [employer]ANT SUPER[employer]OR[employer]uch[employer] -[facility] Work Phone: Start: 09-10-2024 End: 09-10-[address] Safia Ruelas MD -[facility] Work Phone: Start: 09-10-2024 End: 09-10-2024 ambulatory [facility] Facility:[facility] Start: 09-10-2024 Registered Referred Safia Torres Start: 09-10-2024 End: 09-10-2024 Dr. Safia Ruelas MD -[facility] Work Phone: Start: 08-30-2024 End: 08-30-2024 Telephone encounter Kameron Caruso MD Work Phone: [facility] Comment on above: [facility] amaya ng verbal agree to follow Start: 08-15-2024 End: 09-09-2024 Evaluation and management of inpatient [facility] Tyler Garcia Start: 08-09-2024 Evaluation and manag ement of inpatient KAMERON CARUSO Facility:[facility] Start: 08-06-2024 Evaluation and manag ement of inpatient [facility] Start: 08-02-2024 End: 08-02-2024 ambulatory [facility] Facility:[facility] Start: 08-02-2024 End: 08-15-2024 Evaluation and [...] encounter Kameron Caruso MD Work Phone: [facility] Comment on above: medication not on cu rrent med list Start: 06-26-2024 End: 06-26-2024 Office outpatient visit 25 minutes Emma Sotomayor MOTORCYCLE MECHANIC APPRENTICE.FENCE RIDER Work Phone: [facility] Comment on above: Atrial fibrillation, unspecified type (HCC) (Primary Dx); Hypothyroidism, unspecified type; Need for malaria prophylaxis Start: 06-26-2024 End: 06-26-2024 ambulatory EMMA SOTOMAYOR Facility:[facility] Start: 06-25-2024 ambulatory KAMERON CARUSO Facil ity:[facility] Start: 06-24-2024 End: 06-24-2024 Telephone encounter Kameron Caruso MD Work Phone: [facility] Comment on above: Patient Update Start: 06-11-2024 End: 06-11-2024 Telephone encounter Kameron Caruso MD Work Phone: [facility] Comment on above: Results Start: 06-11-2024 End: 06-11-2024 ambulatory KAMERON CARUSO Facility:[facility] Start: 06-10-2024 End: 06-11-2024 Telephone encounter Kameron Caruso MD Work Phone: [facility] [place] Comment on above: Medication Problem Start: 05-31-2024 End: 05-31-2024 ambulatory [facility] Facility:[facility] Start: 05-31-2024 End: 05-31-2024 Patient encounter procedure Kameron Caruso MD Work Phone: [facility] [place] Comment on above: Essential hypertensi on, benign (Primary Dx); Type 2 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, without long-term current use of insulin (HCC); Chronic kidney disease, stage 3a (HCC); Hyperlipidemia, unspecified hyperlipidemia type; Hypothyroidism, unspecified type; Edema of left lower leg; Memory loss; Urinary incontinence, unspecified type; Irregular heart beat; Atrial fibrillation, unspecified type (HCC) Start: 05-23-2024 End: 05-23-2024 [facility] Facility:[facility] Start: 11-28-2023 End: 11-28-2023 [facility] Facility:[facility] Start: 11-28-2023 End: 11-28-2023 Patient encounter procedure Kameron Caruso MD Work Phone: [facility] [place] Comment on above: 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, unspecified CKD stage, unspecified whether gill box fixer insulin use (HCC) (Primary Dx); Essential hypertension, benign; Chronic kidney disease, stage 3a (HCC); Hyperlipidemia, unspecified hyperlipidemia type; Hypothyroidism, unspecified type; Edema of left lower leg; Memory loss; Type 2 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, without long-term current use of insulin (HCC) Start: 11-27-2023 End: 11-27-2023 [facility] Facility:[facility] Start: 10-10-2023 End: 10-10-2023 [facility] Facility:[facility] Start: 10-10-2023 End: 10-10-2023 Office outpatient visit 25 minutes David Dupree APRN.CNP Work Phone: [facility] Comment on above: Rash (Primary Dx) Start: 09-29-2023 End: 09-29-2023 ambulatory [facility] Facility:[facility] Start: 09-29-2023 End: 09-29-2023 Patient encounter procedure Radha Levine APRN.FENCE RIDER Work Phone: [facility] Comment on above: Allergic contact lexi matitis due to plant (Primary Dx) Start: 09-19-2023 Refill Kameron nixon MD Work Phone: [facility] [place] Comment on above: Refill Request Start: 04-08-2023 Telephone encounter Kameron bucio MD Work Phone: [address] [place] [address] Comment on above: Refill Request Start: 11-25-2022 Telephone encounter Kameron bucio MD Work Phone: [facility] [place] Comment on above: Patient Question Start: 05-27-2022 End: 05-27-2022 Patient encounter procedure Kameron Caruso MD Work Phone: [facility] [place] Comment on above: Essential hypertensi on, benign (Primary Dx); Hypothyroidism, unspecified type; Type 2 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, without long-term current use of insulin (HCC); Hyperlipidemia, unspecified hyperlipidemia type; Chronic kidney disease, stage 3a (HCC); Edema of left lower leg; Wellness examination Start: 05-27-2022 End: 05-27-2022 Patient encounter status [facility] Start: 04-11-2022 Refill Kameron nixon MD Work Phone: [facility] Comment on above: Refill Request Start: 03-02-2022 ambulatory Kameron nixon MD Work Phone: [facility] [place] Comment on above: Back Pain Start: 03-02-2022 End: 03-02-2022 Patient encounter procedure Emma Sotomayor APRN.FENCE RIDER Work Phone: [facility] Comment on above: Acute midline low ba ck pain without sciatica (Primary Dx) Start: 01-11-2022 Refill Mj ORTIZ RN.FENCE RIDER Work Phone: [facility] Comment on above: Refill Request Start: 01-11-2022 Refill Kameron nixon MD Work Phone: [facility] [place] Comment on above: Refill Request Start: 12-16-2021 Telephone encounter Kameron bucio MD Work Phone: [facility] [place] Comment on above: Diabetic Testing Sup plies Start: 11-23-2021 End: 11-23-2021 Refill Kameron Caruso MD Work Phone: [facility] [place] Comment on above: 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, unspecified CKD stage, unspecified whether skilled nursing insulin use (HCC) (Primary Dx); Essential hypertension, benign; Hyperlipidemia, unspecified hyperlipidemia type; Stage 3b chronic kidney disease (HCC); Hypothyroidism, unspecified type; Memory loss Start: 10-14-2021 Refill Kameron nixon MD Work Phone: [facility] [place] Comment on above: Refill Request Start: 09-27-2021 Telephone encounter Kameron bucio MD Work Phone: [facility] [place] Comment on above: information requeste d/rxs needed Start: 09-13-2021 Telephone encounter Kameron bucio MD Work Phone: [facility] Comment on above: Patient Question; [...] 12-31-2024 Platelet mean volume determination Dr. Kameron Caurso MD Work Phone: Start: 12-24-2024 Blood count [...] Start: 08-15-2024 Assay of magnesium Abdoule scott Nadine MOTORCYCLE MECHANIC APPRENTICE-FENCE RIDER Work Phone: Start: 08-15-2024 Glucose measurement, blood Christos Voss MD Work Phone: Start: 08-14-2024 Glucose measurement, blood Christos Voss MD Work Phone: Start: 08-14-2024 Glucose measurement, blood Christos Voss MD Work Phone: Start: 08-14-2024 Glucose measurement, blood Christos Voss MD Work Phone: Start: 08-14-2024 Assay of magnesium Abdoule scott M Nadine MOTORCYCLE MECHANIC APPRENTICE-FENCE RIDER Work Phone: Start: 08-13-2024 Glucose measurement, blood Christos Voss MD Work Phone: Start: 08-13-2024 Glucose measurement, blood Christos Voss MD Work Phone: Start: 08-13-2024 Glucose measurement, blood Christos Voss MD Work Phone: Start: 08-13-2024 Glucose measurement, blood Felicity Castellano MD Work Phone: Start: 08-13-2024 Assay of magnesium Nase rin M Nadine MOTORCYCLE MECHANIC APPRENTICE-FENCE RIDER Work Phone: Start: 08-13-2024 Glucose measurement, blood Felicity Castellano MD Work Phone: Start: 08-12-2024 Glucose measurement, blood Felicity Castellano MD Work Phone: Start: 08-12-2024 Glucose measurement, blood Felicity Castellano MD Work Phone: Start: 08-12-2024 Glucose measurement, blood Felicity Castellano MD Work Phone: Start: 08-12-2024 Assay of magnesium Nase rin M Nadine MOTORCYCLE MECHANIC APPRENTICE-FENCE RIDER Work Phone: Start: 08-12-2024 Glucose measurement, blood Felicity Castellano MD Work Phone: Start: 08-11-2024 Glucose measurement, blood Felicity Castellano MD Work Phone: Start: 08-11-2024 Glucose measurement, blood Felicity Castellano MD Work Phone: Start: 08-11-2024 Glucose measurement, blood Felicity Castellano MD Work Phone: Start: 08-11-2024 Assay of magnesium Nase rin M Nadine MOTORCYCLE MECHANIC APPRENTICE-FENCE RIDER Work Phone: Start: 08-10-2024 Glucose measurement, blood Felicity Castellano MD Work Phone: Start: 08-10-2024 Glucose measurement, blood Felicity Castellano MD Work Phone: Start: 08-10-2024 End: 08-10-2024 Culture bacterial blood aerobic w/id isolates Radha Gr MOTORCYCLE MECHANIC APPRENTICE-FENCE RIDER Work Phone: Start: 08-10-2024 Glucose measurement, blood Felicity Castellano MD Work Phone: Start: 08-10-2024 End: 08-10-2024 Glucose measurement, blood Felicity Castellano MD Work Phone: Start: 08-10-2024 Glucose measurement, blood Felicity Castellano MD Work Phone: Start: 08-10-2024 Assay of magnesium Abram scott Jaiden Nadine MOTORCYCLE MECHANIC APPRENTICE-FENCE RIDER Work Phone: Start: 08-10-2024 Glucose measurement, blood Felicity Castellano MD Work Phone: Start: 08-09-2024 Glucose measurement, blood Felicity Castellano MD Work Phone: Start: 08-09-2024 Glucose measurement, blood Felicity Castellano MD Work Phone: Start: 08-09-2024 INTERVENTIONAL UPPER ENDOSCOPY Jonnie Mccabe MD Work Phone: Start: 08-09-2024 Level iv surg pathol ogy gross&microscopic exam Judson Concepción Keith DO Work Phone: Start: 08-09-2024 Glucose measurement, blood Felicity Castellano MD Work Phone: Start: 08-09-2024 Assay of magnesium Abram Hwang Nadine MOTORCYCLE MECHANIC APPRENTICE-FENCE RIDER Work Phone: Start: 08-09-2024 Glucose measurement, blood Felicity Castellano MD Work Phone: Start: 08-08-2024 Glucose measurement, blood Felicity Castellano MD Work Phone: Start: 08-08-2024 Culture bct isol&prs mptv id isolate ea urine Bella Cardenas MOTORCYCLE MECHANIC APPRENTICE-FENCE RIDER Work Phone: Start: 08-08-2024 EXTRA MICRO Bella Hwang Ma rtforrest MOTORCYCLE MECHANIC APPRENTICE-FENCE RIDER Work Phone: Start: 08-08-2024 URINALYSIS REFLEX TO CULTURE Bella Cardenas MOTORCYCLE MECHANIC APPRENTICE-FENCE RIDER Work Phone: Start: 08-08-2024 Ct head/brain w/o co ntrast material Bella Cardenas MOTORCYCLE MECHANIC APPRENTICE-FENCE RIDER Work Phone: Start: 08-08-2024 Glucose measurement, blood Felicity Castellano MD Work Phone: Start: 08-08-2024 End: 08-08-2024 Glucose measurement, blood Felicity Castellano MD Work Phone: Start: 08-08-2024 Assay of magnesium Abram Mccoy MOTORCYCLE MECHANIC APPRENTICE-FENCE RIDER Work Phone: Start: 08-07-2024 Glucose measurement, blood Felicity Castellano MD Work Phone: Start: 08-07-2024 Glucose measurement, blood Felicity Castellano MD Work Phone: Start: 08-07-2024 Glucose measurement, blood Felicity Castellano MD Work Phone: Start: 08-07-2024 Glucose measurement, blood Felicity Castellano MD Work Phone: Start: 08-06-2024 Glucose measurement, blood Felicity Castellano MD Work Phone: Start: 08-06-2024 Assay of magnesium Abram Mccoy MOTORCYCLE MECHANIC APPRENTICE-FENCE RIDER Work Phone: Start: 08-06-2024 Glucose measurement, blood Felicity Castellano MD Work Phone: Start: 08-06-2024 Glucose measurement, blood Felicity Castellano MD Work Phone: Start: 08-06-2024 Radiologic exam swal low function contrast study Shanna Russ MOTORCYCLE MECHANIC APPRENTICE-FENCE RIDER Work Phone: Start: 08-06-2024 SPEECH MODIFIED KEAGAN UM SWALLOW Shanna Russ MOTORCYCLE MECHANIC APPRENTICE-FENCE RIDER Work Phone: Start: 08-06-2024 Glucose measurement, blood Felicity Castellano MD Work Phone: Start: 08-05-2024 Glucose measurement, blood Felicity Castellano MD Work Phone: Start: 08-05-2024 Assay of magnesium Abram Hwang Nadine MOTORCYCLE MECHANIC APPRENTICE-FENCE RIDER Work Phone: Start: 08-05-2024 Glucose measurement, blood Felicity Castellano MD Work Phone: Start: 08-05-2024 Glucose measurement, blood Felicity Castellano MD Work Phone: Start: 08-05-2024 Echo tthrc r-t 2d w/wom-mode compl spec&colr d Taran Traore MOTORCYCLE MECHANIC APPRENTICE-FENCE RIDER Work Phone: Start: 08-05-2024 Glucose measurement, blood Felicity Castellano MD Work Phone: Start: 08-05-2024 Assay of magnesium Abram Hwang Nadine MOTORCYCLE MECHANIC APPRENTICE-FENCE RIDER Work Phone: Start: 08-05-2024 Glucose measurement, blood [...] Start: 08-04-2024 Assay of magnesium Abram Mccoy MOTORCYCLE MECHANIC APPRENTICE-FENCE RIDER Work Phone: Start: 08-04-2024 Glucose measurement, blood Richard Mejia MD Work Phone: Start: 08-03-2024 Ct head/brain w/o co ntrast material Shaila Méndez PA-C Start: 08-03-2024 Sodium serum plasma or whole blood Shanna Denise MD Work Phone: Start: 08-03-2024 Glucose measurement, blood Richard Mejia MD Work Phone: Start: 08-03-2024 Radiologic exam abdo men 1 view Balbir Mccoy MOTORCYCLE MECHANIC APPRENTICE-FENCE RIDER Work Phone: Start: 08-03-2024 Glucose measurement, blood [...] brain stem w/o contrast material Taran Traore MOTORCYCLE MECHANIC APPRENTICE-FENCE RIDER Work Phone: Start: 08-03-2024 ABORH TYPE RECONFIRMATION Cindy CORDOVA Work Phone: Start: 08-03-2024 Assay of magnesium Abram Mccoy MOTORCYCLE MECHANIC APPRENTICE-FENCE RIDER Work Phone: Start: 08-02-2024 Glucose measurement, blood [...] Performed By: #### X M #### [facility] ([facility]) [address] [place] [address] Start: 08-02-2024 EXTRA MICRO Taran Robb León MOTORCYCLE MECHANIC APPRENTICE-FENCE RIDER Work Phone: Start: 08-02-2024 Hemoglobin glycosylated a1c Balbir Hwang Nadine MOTORCYCLE MECHANIC APPRENTICE-FENCE RIDER Work Phone: Start: 08-02-2024 Hepatic function panel Balbir Hwang Nadine MOTORCYCLE MECHANIC APPRENTICE-FENCE RIDER Work Phone: Start: 08-02-2024 Iadna s aureus ampli fied probe tq Balbir Hwang Nadine MOTORCYCLE MECHANIC APPRENTICE-FENCE RIDER Work Phone: Start: 08-02-2024 URINALYSIS REFLEX TO CULTURE Taran Robb Cemzoie MOTORCYCLE MECHANIC APPRENTICE-FENCE RIDER Work Phone: Start: 08-02-2024 Urnls dip stick/tabl et reagent auto microscopy Taran Traore MOTORCYCLE MECHANIC APPRENTICE-FENCE RIDER Work Phone: Start: 08-02-2024 SARS-CoV-2, Influenz a & RSV (PCR) Dr. Kameron Caurso MD Work Phone: Start: 08-02-2024 Estimated creatinine [...] Author Start: 08-15-2025 Complete blood count Hemoglobin/Hematocrit [facility] Start: 08-15-2025 Creatinine measurement Serum Creatinine [facility] Start: 08-02-2025 Thyroid stimulating hormone measurement [facility] Start: 06-26-2025 Annual PCP Team Chronic Disease Visit Annual PCP Team Chronic Disease Visit [facility] Start: 05-31-2025 Annual PCP Team Chronic Disease Visit Annual PCP Team Chronic Disease Visit [facility] Start: 05-31-2025 Covid-19 Vaccine ( season) Covid-19 Vaccine ( season) [facility] Comment on above: Postponed from 01/14/2024 (Declined at t his time) Start: 05-31-2025 Pneumococcal Vaccine: 50+ (2 of 2 - PPSV23) Pneumococcal Vaccine: 50+ (2 of 2 - PPSV23) [facility] Comment on above: Postponed from 12/19/2019 (Declined at t his time) Start: 05-23-2025 Creatinine measurement Serum Creatinine [facility] Start: 05-23-2025 Hepatitis B screening Urine Albumin:Creatinine Ratio [facility] Start: 05-23-2025 Hepatitis B surface antibody level LDL Cholesterol [facility] Start: 02-02-2025 Hemoglobin A1c measurement HbA1C [facility] Start: 01-13-2025 Influenza vaccination [facility] Start: 01-03-2025 Glaucoma screening Dilated Retinal Exam [facility] Start: 12-24-2024 End: 12-24-2024 Patient encounter procedure 12/24/2024 9:20 AM EDT Office Visit [facility] [address] [place], [place] [id number] Kameron Caruso MD [address] [place], [place] [id number] 6 month follow up [facility] Comment on above: 6 month follow up Start: 11-28-2024 End: 02-27-2025 Comprehensive metabolic 2000 panel - Serum or Plasma COMPREHENSIVE METABOLIC PANEL Lab Routine Essential hypertension, benign Chronic kidney disease, stage 3a (HCC) Hyperlipidemia, unspecified hyperlipidemia type Expected: 11/28/2024 (Approximate), Expires: 02/27/2025 [facility] Work Phone: Comment on above: Expected: 11/28/2024 (Approximate), Expi res: 02/27/2025 Start: 11-28-2024 End: 02-27-2025 Hemoglobin A1c in Blood HEMOGLOBIN A1C Lab Routine Expected: 11/28/2024 (Approximate), Expires: 02/27/2025 [facility] Comment on above: Expected: 11/28/2024 (Approximate), Expi res: 02/27/2025 Start: 11-28-2024 End: 02-27-2025 Lipid 1996 panel - Serum or Plasma LIPID PANEL BASIC Lab Routine Essential hypertension, benign Hyperlipidemia, unspecified hyperlipidemia type Expected: 11/28/2024 (Approximate), Expires: 02/27/2025 [facility] Comment on above: Expected: 11/28/2024 (Approximate), Expi res: 02/27/2025 Start: 11-28-2024 End: 02-27-2025 Thyrotropin [Units/volume] in Serum or Plasma THYROID STIMULATING HORMONE Lab Routine Hypothyroidism, unspecified type Expected: 11/28/2024 (Approximate), Expires: 02/27/2025 [facility] Comment on above: Expected: 11/28/2024 (Approximate), Expi res: 02/27/2025 Start: 11-27-2024 Annual PCP Team Chronic Disease Visit Annual PCP Team Chronic Disease Visit [facility] Start: 11-27-2024 Anxiety Screening Anxiety Screening [facility] Start: 11-27-2024 Depression Screening Depression Screening [facility] Start: 11-27-2024 RSV Vaccine (1 - 1-dose 60+ series) RSV Vaccine (1 - 1-dose 60+ series) [facility] Comment on above: Postponed from 2004 (Declined at t his time) Start: 11-27-2024 RSV Vaccine (1 - 1-dose 75+ series) RSV Vaccine (1 - 1-dose 75+ series) [facility] Comment on above: Postponed from 10/26/2019 (Declined at t his time) Start: 11-26-2024 Creatinine measurement Serum Creatinine [facility] Start: 11-26-2024 Hepatitis B surface antibody level LDL Cholesterol [facility] Start: 11-20-2024 Hemoglobin A1c measurement HbA1C [facility] Start: 11-11-2024 Influenza vaccination Influenza Vaccine (#1) [facility] Comment on above: Postponed from 01/14/2024 (Declined at t his time) Start: 10-08-2024 End: 10-08-2024 ambulatory [facility] Start: 10-02-2024 Evaluation of diagnostic study results 12 Lead EKG performed by [facility] Start: 08-02-2024 [facility] Start: 08-02-2024 SARS-CoV-2, Influenza & RSV (PCR) SARS-CoV-2, Influenza & RSV (PCR) [facility] Start: 08-02-2024 End: 08-02-2024 [facility] Start: 08-02-2024 Electrocardiographic procedure [facility] Start: 08-02-2024 Oxygen therapy [facility] Start: 07-24-2024 End: 10-23-2024 Thyrotropin [Units/volume] in Serum or Plasma THYROID STIMULATING HORMONE Lab Routine Hypothyroidism, unspecified type Expected: 07/24/2024, Expires: 10/23/2024 [facility] Work Phone: Comment on above: Expected: 07/24/2024, Expires: Start: 07-24-2024 End: 10-23-2024 Thyroxine (T4) free [Mass/volume] in Serum or Plasma T4 FREE/FREE THYROXINE Lab Routine Hypothyroidism, unspecified type Expected: 07/24/2024, Expires: 10/23/2024 [facility] Comment on above: Expected: 07/24/2024, Expires: Start: 06-25-2024 End: 06-25-2024 Patient encounter procedure 06/25/2024 9:40 AM EST Office Visit [facility] [place] [address], [place] [phone] Kameron Caruso MD [address], [place] [phone] 1 mo f/u, new dx afib. [facility] [place] Comment on above: 1 mo f/u, new dx afib. Start: 06-11-2024 End: 06-11-2024 Patient encounter procedure 06/11/2024 8:50 AM EST Office Visit Cardiology [address], [place] [id number] Atrial fibrillation, unspecified type (HCC) [I48.91] Cardiology Comment on above: Atrial fibrillation, unspecified type (H CC) [I48.91] Start: 05-30-2024 Annual PCP Team Chronic Disease Visit Annual PCP Team Chronic Disease Visit [facility] Start: 05-30-2024 End: 08-29-2024 Comprehensive metabolic 2000 panel - Serum or Plasma COMPREHENSIVE METABOLIC PANEL Lab Routine Type 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, unspecified CKD stage, unspecified whether skilled nursing insulin use (HCC) Essential hypertension, benign Chronic kidney disease, stage 3a (HCC) Hyperlipidemia, unspecified hyperlipidemia type Expected: 05/30/2024 (Approximate), Expires: 08/29/2024 [facility] Work Phone: Comment on above: Expected: 05/30/2024 (Approximate), Expi res: 08/29/2024 Start: 05-30-2024 Covid-19 Vaccine ( season) Covid-19 Vaccine () [facility] Comment on above: Postponed from 01/13/2023 (Declined at t his time) Start: 05-30-2024 End: 08-29-2024 Hemoglobin A1c in Blood HEMOGLOBIN A1C Lab Routine Type 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, unspecified CKD stage, unspecified whether gill box fixer insulin use (HCC) Expected: 05/30/2024 (Approximate), Expires: 08/29/2024 [facility] Comment on above: Expected: 05/30/2024 (Approximate), Expi res: 08/29/2024 Start: 05-30-2024 Hepatitis C screening Hepatitis C Screening [facility] Comment on above: Postponed from 1962 (Declined at t his time) Start: 05-30-2024 End: 08-29-2024 Lipid 1996 panel - Serum or Plasma LIPID PANEL BASIC Lab Routine Type 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, unspecified CKD stage, unspecified whether skilled nursing insulin use (HCC) Essential hypertension, benign Hyperlipidemia, unspecified hyperlipidemia type Expected: 05/30/2024 (Approximate), Expires: 08/29/2024 [facility] Comment on above: Expected: 05/30/2024 (Approximate), Expi res: 08/29/2024 Start: 05-30-2024 End: 08-29-2024 Microalbumin/Creatinine [Mass Ratio] in Urine ALBUMIN/CREATININE RATIO, URINE Lab Routine Type 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, unspecified CKD stage, unspecified whether gill box fixer insulin use (HCC) Expected: 05/30/2024 (Approximate), Expires: 08/29/2024 [facility] Comment on above: Expected: 05/30/2024 (Approximate), Expi res: 08/29/2024 Start: 05-30-2024 Pneumococcal Vaccine: 65+ (2 of 2 - PPSV23 or PCV20) Pneumococcal Vaccine: 65+ (2 of 2 - PPSV23 or PCV20) [facility] Comment on above: Postponed from 12/19/2019 (Declined at t his time) Start: 05-30-2024 End: 08-29-2024 Thyrotropin [Units/volume] in Serum or Plasma THYROID STIMULATING HORMONE Lab Routine Hypothyroidism, unspecified type Expected: 05/30/2024 (Approximate), Expires: 08/29/2024 [facility] Comment on above: Expected: 05/30/2024 (Approximate), Expi res: 08/29/2024 Start: 05-30-2024 End: 05-30-2024 Patient encounter procedure 05/30/2024 9:40 AM EST Office Visit [facility] [place] [address] [place] [phone] Kameron Caruso MD [address] [place] [id number] 6 mo f/u Family [facility] Comment on above: 6 mo f/u Start: 05-29-2024 Hemoglobin A1c measurement HbA1C [facility] Start: 05-16-2024 Creatinine measurement Serum Creatinine [facility] Start: 05-16-2024 Hepatitis B screening Urine Albumin:Creatinine Ratio [facility] Start: 05-16-2024 Hepatitis B surface antibody level LDL Cholesterol [facility] Start: 05-15-2024 Advance Directive Discussion Advance Directive Discussion [facility] Start: 01-14-2024 Influenza vaccination [facility] Start: 01-14-2024 [facility] Start: 01-04-2024 Glaucoma screening Dilated Retinal Exam [facility] Start: 01-04-2024 Hepatitis C antibody, confirmatory test Dilated Retinal Exam [facility] Start: 11-28-2023 End: 11-28-2023 Patient encounter procedure 11/28/2023 9:40 AM EDT Office Visit [facility] [place] [address] [place] [phone] Kameron Caruso MD [address] [place] [phone] 6 mo follow up Family [place] [facility] Comment on above: 6 mo follow up Start: 11-26-2023 ANNUAL PCP TEAM CHRONIC DISEASE VISIT ANNUAL PCP TEAM CHRONIC DISEASE VISIT [facility] Start: 11-26-2023 BP CONTROLLED (<130/80) BP CONTROLLED (<130/80) [facility] Start: 11-23-2023 Complete blood count Hemoglobin/Hematocrit [facility] Start: 11-23-2023 HEMOGLOBIN/HEMATOCRIT HEMOGLOBIN/HEMATOCRIT [facility] Start: 11-23-2023 Hepatitis B surface antibody level LDL CHOLESTEROL [facility] Start: 11-23-2023 SERUM CREATININE SERUM CREATININE [facility] Start: 11-14-2023 Hemoglobin A1c measurement HbA1C [facility] Start: 05-27-2023 ANNUAL PCP TEAM CHRONIC DISEASE VISIT ANNUAL PCP TEAM CHRONIC DISEASE VISIT [facility] Start: 05-27-2023 COVID-19 VACCINE (2 - Booster for Alyssa series) COVID-19 VACCINE (2 - Booster for Alyssa series) [facility] Comment on above: Postponed from 09/17/2020 (Declined at t his time) Start: 05-27-2023 HEPATITIS C SCREENING HEPATITIS C SCREENING [facility] Comment on above: Postponed from 1962 (Declined at t his time) Start: 05-25-2023 Hemoglobin A1c/Hemoglobin.total in Blood HBA1C [facility] Start: 05-19-2023 HEMOGLOBIN/HEMATOCRIT HEMOGLOBIN/HEMATOCRIT [facility] Start: 05-19-2023 Hepatitis B surface antibody level LDL CHOLESTEROL [facility] Start: 05-19-2023 SERUM CREATININE SERUM CREATININE [facility] Start: 05-15-2023 Advance Directive Discussion Advance Directive Discussion [facility] Start: 05-15-2023 Behavioral Health Screening Behavioral Health Screening [facility] Start: 03-02-2023 ANNUAL PCP TEAM CHRONIC DISEASE VISIT ANNUAL PCP TEAM CHRONIC DISEASE VISIT [facility] Start: 01-13-2023 Covid-19 Vaccine () Covid-19 Vaccine () [facility] Start: 01-13-2023 Influenza vaccination [facility] Start: 12-27-2022 Hepatitis C antibody, confirmatory test DILATED RETINAL EXAM [facility] Start: 11-24-2022 End: 01-24-2023 CBC panel - Blood by Automated count CBC Lab Routine Essential hypertension, benign Hypothyroidism, unspecified type Expected: 11/24/2022 (Approximate), Expires: 01/24/2023 [facility] Work Phone: Comment on above: Expected: 11/24/2022 (Approximate), Expi res: 01/24/2023 Start: 11-24-2022 End: 01-24-2023 Comprehensive metabolic 2000 panel - Serum or Plasma COMP METABOLIC PANEL Lab Routine Essential hypertension, benign Type 2 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, without long-term current use of insulin (HCC) Hyperlipidemia, unspecified hyperlipidemia type Expected: 11/24/2022 (Approximate), Expires: 01/24/2023 [facility] Work Phone: Comment on above: Expected: 11/24/2022 (Approximate), Expi res: 01/24/2023 Start: 11-24-2022 End: 01-24-2023 Hemoglobin A1c in Blood HGB A1C Lab Routine Type 2 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, without long-term current use of insulin (HCC) Expected: 11/24/2022 (Approximate), Expires: 01/24/2023 [facility] Work Phone: Comment on above: Expected: 11/24/2022 (Approximate), Expi res: 01/24/2023 Start: 11-24-2022 End: 01-24-2023 Lipid 1996 panel - Serum or Plasma LIPID PANEL BASIC Lab Routine Essential hypertension, benign Type 2 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, without long-term current use of insulin (HCC) Hyperlipidemia, unspecified hyperlipidemia type Expected: 11/24/2022 (Approximate), Expires: 01/24/2023 [facility] Work Phone: Comment on above: Expected: 11/24/2022 (Approximate), Expi res: 01/24/2023 Start: 11-24-2022 End: 01-24-2023 Thyrotropin [Units/volume] in Serum or Plasma TSH BLD Lab Routine Hypothyroidism, unspecified type Expected: 11/24/2022 (Approximate), Expires: 01/24/2023 [facility] Work Phone: Comment on above: Expected: 11/24/2022 (Approximate), Expi res: 01/24/2023 Start: 11-23-2022 3 comp foot exam completed DIABETIC FOOT EXAM [facility] Start: 11-23-2022 ANNUAL PCP TEAM CHRONIC DISEASE VISIT ANNUAL PCP TEAM CHRONIC DISEASE VISIT [facility] Start: 11-23-2022 Diabetic foot examination Diabetic Foot Exam [facility] Start: 11-20-2022 Hepatitis B screening URINE ALBUMIN:CREATININE RATIO [facility] Start: 11-20-2022 Hepatitis B surface antibody level LDL CHOLESTEROL [facility] Start: 11-20-2022 SERUM CREATININE SERUM CREATININE [facility] Start: 11-16-2022 Hemoglobin A1c/Hemoglobin.total in Blood HBA1C [facility] Start: 11-11-2022 Influenza vaccination INFLUENZA (#1) [facility] Comment on above: Postponed from 01/13/2022 (Declined at t his time) Start: 05-26-2022 End: 07-26-2022 CBC panel - Blood by Automated count CBC Lab Routine Essential hypertension, benign Stage 3b chronic kidney disease (HCC) Expected: 05/26/2022 (Approximate), Expires: 07/26/2022 [facility] Work Phone: Comment on above: Expected: 05/26/2022 (Approximate), Expi res: 07/26/2022 Start: 05-26-2022 End: 07-26-2022 Comprehensive metabolic 2000 panel - Serum or Plasma COMP METABOLIC PANEL Lab Routine Type 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, unspecified CKD stage, unspecified whether gill box fixer insulin use (HCC) Essential hypertension, benign Hyperlipidemia, unspecified hyperlipidemia type Stage 3b chronic kidney disease (HCC) Expected: 05/26/2022 (Approximate), Expires: 07/26/2022 [facility] Work Phone: Comment on above: Expected: 05/26/2022 (Approximate), Expi res: 07/26/2022 Start: 05-26-2022 End: 07-26-2022 Hemoglobin A1c in Blood HGB A1C Lab Routine Type 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, unspecified CKD stage, unspecified whether skilled nursing insulin use (HCC) Expected: 05/26/2022 (Approximate), Expires: 07/26/2022 [facility] Work Phone: Comment on above: Expected: 05/26/2022 (Approximate), Expi res: 07/26/2022 Start: 05-26-2022 End: 07-26-2022 Lipid 1996 panel - Serum or Plasma LIPID PANEL BASIC Lab Routine Essential hypertension, benign Hyperlipidemia, unspecified hyperlipidemia type Expected: 05/26/2022 (Approximate), Expires: 07/26/2022 [facility] Work Phone: Comment on above: Expected: 05/26/2022 (Approximate), Expi res: 07/26/2022 Start: 05-26-2022 End: 07-26-2022 Thyrotropin [Units/volume] in Serum or Plasma TSH BLD Lab Routine Hypothyroidism, unspecified type Expected: 05/26/2022 (Approximate), Expires: 07/26/2022 [facility] Work Phone: Comment on above: Expected: 05/26/2022 (Approximate), Expi res: 07/26/2022 Start: 05-23-2022 Hemoglobin A1c/Hemoglobin.total in Blood HBA1C [facility] Start: 05-18-2022 ANNUAL PCP TEAM CHRONIC DISEASE VISIT ANNUAL PCP TEAM CHRONIC DISEASE VISIT [facility] Start: 05-17-2022 Hepatitis B surface antibody level LDL CHOLESTEROL [facility] Start: 05-17-2022 SERUM CREATININE SERUM CREATININE [facility] Start: 05-15-2022 ADVANCE DIRECTIVE DISCUSSION ADVANCE DIRECTIVE DISCUSSION [facility] Start: 01-13-2022 Influenza vaccination [facility] Start: 01-11-2022 Hepatitis C antibody, confirmatory test DILATED RETINAL EXAM [facility] Start: 11-14-2021 Hemoglobin A1c/Hemoglobin.total in Blood HBA1C [facility] Start: 11-06-2021 Screening for malignant neoplasm of breast [facility] Start: 11-05-2021 3 comp foot exam completed DIABETIC FOOT EXAM [facility] Start: 11-05-2021 Adult depression screening assessment DEPRESSION SCREENING [facility] Start: 11-04-2021 Hepatitis B screening URINE ALBUMIN:CREATININE RATIO [facility] Start: 10-15-2021 Hepa vaccine adult dose for intramuscular use HEPATITIS A VACCINE ADULT IM Immunization/Injection Routine Need for vaccination Expected: 10/15/2021 [facility] Work Phone: Comment on above: Expected: 10/15/2021 Start: 10-15-2021 Tdap vaccine 7 yrs/> im TDAP VACCINE AGE 7+ IM Immunization/Injection Routine Need for vaccination Expected: 10/15/2021 [facility] Work Phone: Comment on above: Expected: 10/15/2021 Start: 05-15-2021 ADVANCE DIRECTIVE DISCUSSION ADVANCE DIRECTIVE DISCUSSION [facility] Start: 05-15-2021 DEPRESSION ASSESSMENT DEPRESSION ASSESSMENT [facility] Start: 10-23-2020 PNEUMOCOCCAL: 65+ (2 - PPSV23 if available, else PCV20) PNEUMOCOCCAL: 65+ (2 - PPSV23 if available, else PCV20) [facility] Start: 10-23-2020 PNEUMOCOCCAL: 65+ (2 - PPSV23 or PCV20) PNEUMOCOCCAL: 65+ (2 - PPSV23 or PCV20) [facility] Start: 10-16-2020 HEMOGLOBIN/HEMATOCRIT HEMOGLOBIN/HEMATOCRIT [facility] Start: 09-17-2020 COVID-19 VACCINE (2 - Booster for Alyssa series) COVID-19 VACCINE (2 - Booster for Alyssa series) [facility] Start: 12-19-2019 Pneumococcal vaccination [facility] Start: 12-19-2019 Pneumococcal Vaccine: 65+ (2 - PPSV23 or PCV20) Pneumococcal Vaccine: 65+ (2 - PPSV23 or PCV20) [facility] Start: 12-19-2019 PNEUMOCOCCAL: 65+ (2 - PPSV23 or PCV20) PNEUMOCOCCAL: 65+ (2 - PPSV23 or PCV20) [facility] Start: 11-08-2019 Screening for malignant neoplasm of colon [facility] Start: 10-26-2019 [facility] Start: 01-13-2019 Influenza vaccination Flu vaccine (#1) [place] Start: 12-23-2018 Annual Wellness Visit (AWV) Annual Wellness Visit (AWV) [place] Start: 2009 DEXA (modify frequency per FRAX score) DEXA (modify frequency per FRAX score) [place] Start: 2009 Pneumococcal 65+ years Vaccine (1 of 1 - PPSV23) Pneumococcal 65+ years Vaccine (1 of 1 - PPSV23) [place] Start: 2009 Pneumococcal 65+ years Vaccine (1 of 2 - PCV13) Pneumococcal 65+ years Vaccine (1 of 2 - PCV13) [place] Start: 10-26-2007 Annual Wellness Visit (AWV) Annual Wellness Visit (AWV) [place] Start: 2004 Hepatitis B Vaccine (1 of 3 - Risk 3-dose series) Hepatitis B Vaccine (1 of 3 - Risk 3-dose series) [facility] Start: 2004 RSV Vaccine (1 - 1-dose 60+ series) RSV Vaccine (1 - 1-dose 60+ series) [facility] Start: 10-26-1999 Screening for osteoporosis DEXA (modify frequency per FRAX score) [place] Start: 1994 Breast cancer screen Breast cancer screen [place] Start: 1994 Colon cancer screen colonoscopy Colon cancer screen colonoscopy [place] Start: 1994 Screening for malignant neoplasm of breast Breast cancer screen [place] Start: 1994 Screening for malignant neoplasm of colon Colon cancer screen colonoscopy [place] Start: 1994 Shingles Vaccine (1 of 2) Shingles Vaccine (1 of 2) [place] Start: 1984 Lipid screen Lipid screen [place] Start: 1965 Screening for malignant neoplasm of cervix [facility] Start: 10-26-1963 DTaP/Tdap/Td vaccine (1 - Tdap) DTaP/Tdap/Td vaccine (1 - Tdap) [place] Start: 10-26-1963 Third diphtheria, tetanus and acellular pertussis (DTaP) vaccination [facility] Start: 10-26-1963 Urine microalbumin profile [facility] Start: 1962 BP CONTROLLED (<130/80) BP CONTROLLED (<130/80) [facility] Start: 1962 HEPATITIS C SCREENING HEPATITIS C SCREENING [facility] Start: 1954 Lipid panel Lipid screen [place] Start: 1944 Creatinine measurement Creatinine monitoring [place], [place] Start: 1944 Creatinine monitoring Creatinine monitoring [place], [place] Start: 1944 Hepatitis C screen Hepatitis C screen [place] Start: 1944 Hepatitis C screening [facility] Start: 1944 Potassium monitoring Potassium monitoring [place] Start: 1944 Screening for osteoporosis [facility] Start: 1944 Tetanus vaccination [facility] End: 01-09-2019 Blood glucose - POCT Blood glucose - POCT Point of Care Testing Routine One Time for 1 Occurrences starting 01/09/2019 until 01/09/2019 [facility] ID Comment on above: One Time for 1 Occurrences starting 12/14 until 01/09/2019 ECG COMPLETE [facility] Comment on above: Ordered: 05/31/2024 End: 05-31-2025 Echocardiography ECHO Cardiology Routine Atrial fibrillation, unspecified type (HCC) 1 Occurrences starting 05/31/2024 until 05/31/2025 [facility] Comment on above: 1 Occurrences starting 05/31/2024 until 05/31/2025 Patient referral [facility] Work Phone: End: 01-09-2019 Pulse Oximetry Spot Check Pulse Oximetry Spot Check Respiratory Care Routine One Time for 1 Occurrences starting 01/09/2019 until 01/09/2019 [facility] ID Comment on above: One Time for 1 Occurrences starting 12/14 until 01/09/2019 End: 08-02-2024 PV FLUOROSCOPY OR [facility] End: 08-02-2024 Standard ECG [facility] Immunization Date Immunization Notes Care Provider Fa cili 07-23-2020 SARS-CoV-2 (COVID-19 ) Ad26 vaccine, recombinant SILVINO HA DO Tyler Garcia Comment on above: Result Comment: 2024: [id number] 02-27-2020 influenza, high dose seasonal, preservative-free Kameron Caruso MD Work Phone: [facility] 02-27-2020 influenza virus vaccine, unspecified formulation Kameron Caruso MD Work Phone: [facility] 10-24-2019 pneumococcal conjuga te vaccine, 13 valent Kameron Caruso MD Work Phone: [facility] 10-24-2019 zoster vaccine recombinant Kameron Caruso MD Work Phone: [facility] 07-25-2019 influenza virus vaccine, unspecified formulation SILVINO HA DO [facility] 07-25-2019 influenza, seasonal, injectable Kameron Caruso MD Work Phone: [facility] 07-25-2019 zoster vaccine recombinant Kameron Caruso MD Work Phone: [facility] 04-13-2015 influenza virus vaccine, unspecified formulation SILVINO HA DO [facility] 05-01-2014 influenza virus vaccine, unspecified formulation SILVINO HA DO [facility] 05-01-2014 influenza, high dose seasonal, preservative-free Kameron Caruso MD Work Phone: [facility] 02-22-2012 influenza virus vaccine, unspecified formulation Kameron Caruso MD Work Phone: [facility] Work Phone: 03-19-2007 influenza virus vaccine, unspecified formulation Kameron Caruso MD Work Phone: [facility] Work Phone: Payers Date Payer Category Payer Medicare [id number] 2024 Unknown [id number] 2024 Self-pay 2018 Medicare [employer] RE ADVANTAGE [employer]ARE ADVANTAGE xxxxxxxxxxx 2018-Present [phone] [address] [place] [address] xxxxxxxxxxx [id number] 2018 Unknown [id number] 2013 Medicare [employer] [place] [id number] 2013-Present [phone] [address] [place] [address] [facility] [id number] 2013 Medicare [id number] 2013 Medicare (Managed Care) 1.2. [id number] 2013 Medicare [id number] 1945 Unknown [id number] 2.16840.1.617557.3.579.2 .627 1944 Unknown [id number] 2.840.1.012155.3.579.2 .732 1944 Unknown [id number] 2.16840.1.672749.3.579.2 .627 1944 Unknown [id number] 2.16840.1.932222.3.579.2 .594 1944 Unknown [id number] 2.16840.1.475567.3.579.2 .594 Unknown [id number] 2.16840.1.675715.3.579.2 .462 Unknown [id number] 2.16.840.1.309888.3.579.2 .462 Unknown [id number] 2.16.840.1.279585.3.579.2 .462 Unknown [id number] 2.16.840.1.761035.3.579.2 .462 Unknown [id number] 2.16.840.1.754704.3.579.2 .462 Unknown [id number] 2.16.840.1.440066.3.579.2 .462 Unknown [id number] 2.16.840.1.642393.3.579.2 .462 Unknown [id number] 2.16.840.1.865839.3.579.2 .462 Unknown [id number] 2.16.840.1.616685.3.579.2 .462 Unknown [id number] 2.16.840.1.981774.3.579.2 .462 Unknown [id number] 2.16.840.1.581440.3.579.2 .462 Unknown [id number] 2.16.840.1.129343.3.579.2 .462 Unknown [id number] 2.840.1.010401.3.579.2 .462 Unknown [id number] 2.840.1.547996.3.579.2 .462 Unknown [id number] 2.840.1.139956.3.579.2 .462 Unknown [id number] 2.840.1.142997.3.579.2 .462 Unknown [id number] 2.840.1.756598.3.579.2 .462 Unknown [id number] 2.840.1.519104.3.579.2 .462 Unknown [id number] 2.840.1.941134.3.579.2 .462 Unknown [id number] 2.840.1.871909.3.579.2 .462 Unknown [id number] 2.16.840.1.031255.3.579.2 .462 Unknown [id number] 2.16840.1.520434.3.579.2 .462 Unknown [id number] 2.16840.1.730277.3.579.2 .462 Unknown [id number] 2.16840.1.891975.3.579.2 .462 Unknown [id number] 2.16.840.1.455206.3.579.2 .462 Unknown [id number] 2.16.840.1.924702.3.579.2 .462 Unknown [id number] 2.16.840.1.815207.3.579.2 .462 Unknown [id number] 2.16.840.1.258063.3.579.2 .462 Unknown [id number] 2.16.840.1.073397.3.579.2 .462 Unknown [id number] 2.16.840.1.802425.3.579.2 .462 Unknown [id number] 2.16.840.1.754604.3.579.2 .462 Unknown [id number] 2.16.840.1.528602.3.579.2 .462 Unknown [id number] 2.16.840.1.775717.3.579.2 .462 Unknown [id number] 2.16.840.1.173368.3.579.2 .462 Social History Date Type Detail Facility Start: 01-09-2019 End: 08-02-2024 Tobacco smoking status NHIS Never smoker [facility] Start: 01-09-2019 End: 11-25-2022 Alcohol intake Never [facility] Work Phone: Start: 12-24-2018 History SDOH Alcohol Frequency 1 [place], [place] Start: 1945 Sex Assigned At Not on file M [place] Start: 10-16-2019 Alcohol intake Lifetime non-d hortencia (finding) [place] Exposure to SARS-CoV -2 (event) Unable to assess [place] Start: 05-18-2021 End: 06-26-2024 Alcohol intake Current non-drinker of alcohol (finding) [facility] Start: 11-13-2021 End: 03-02-2022 Exposure to SARS-CoV-2 (event) Not sure [facility] Start: 02-02-2011 End: 03-02-2022 Tobacco use and exposure Smokeless tobacco non-user [facility] Start: 11-25-2022 End: 11-28-2023 History of Social function [facility] Work Phone: Adult Depression Screening Assessment 0 [facility] Work Phone: Start: 06-22-2005 End: 08-02-2024 Sex Female (finding) [facility] Start: 1945 Sex Assigned At Female W [facility] Sexual Orientation [facility] Medical Equipment Procedure Code Equipment Code Equipment Original Text Equipment Identifier Dates [id number], [id number], [id number] Start: 11-30-2020 End: 04-08-2023 Comment on above: [...] Functional Status Room check performed [facility] 09-09-2024 Functional Status [facility] 09-09-2024 Functional Status Skin Care Prev entative Intervention(s) heel(s)s elevated [facility] 09-08-2024 Functional Status [facility] 09-08-2024 Functional Status [facility] 09-06-2024 Functional Status 11pm-7am [facility] 09-06-2024 Functional Status Antiembolism S tocking On/Re-applied bilateral knee high [facility] 09-05-2024 Functional Status Oral Care Maximum wilfred tance [facility] 09-05-2024 [facility] Functional Status Done [facility] 09-04-2024 [facility] Functional Status NPO Status Maintained A [facility] [place] 09-03-20[address] [facility] 09-03-2024 Functional Status [facility] 08-29-2024 Functional Status [facility] 08-29-2024 Functional Status [facility] [place] [place] 08-27-2024 Functional Status Orthotics, Dev ice Worn Per Schedule Yes [facility] [place] 08-27-2024 Functional Status [facility] [place] 08-26-[address] [facility] 08-23-[address] [facility] 08-23-2024 Functional Status Breakfast Percent 25 [facility] 08-20-[address] [facility] 08-19-[address] [facility] 08-16-2024 Functional Status Single level h ome, basement laundry [facility] 08-16-2024 Functional Status Outside Stairs Rail Rail on left going up [facility] 08-15-2024 Functional Status Sensory Defici ts Speech deficit [facility] 10-14-2014 Are you deaf, or do you have serious difficulty hearing No [facility] 10-14-2014 Are you blind, or do you have serious difficulty seeing, even when wearing glasses No [facility] 10-14-2014 Do you have serious difficulty walking or climbing stairs No [facility] 10-14-2014 Do you have difficul ty dressing or bathing No [facility] 10-14-2014 Because of a physica l, mental, or emotional condition, do you have difficulty doing errands alone such as visiting a physician's office or shopping No [facility] Mental Status Date Assessment Result Facility 09-09-2024 Mental Status Does not interact [facility] 09-08-2024 Mental Status [facility] 09-08-2024 Mental Status [facility] 08-02-2024 Cognitive function Awake;Alert;F ollows Commands [facility] Work Phone: 10-14-2014 Because of a physica l, mental, or emotional condition, do you have serious difficulty concentrating, remembering, or making decisions No [facility] Clinical Notes 11-03-2020 to 10-02-2024 Note Date & Type Note Facility 10-02-2024 Evaluation note Diagnosis Onset Date Resolution Acute ischemic right MCA stroke acute October 02, 2024 9:29am Essential hypertension acute Ma y 2024 9:29am Hyperlipidemia acute October 02, 2024 9:29am Paroxysmal atrial fibrillation with RVR acute October 02, 2024 9:29am [employer] Work Phone: 1(894) 688-932004-28-2025 Note Discharge Instructions Thank you for allowing [...] KAMERON CARUSO MD When:Within 3-7 days Where:[address] [place] [address]- Additional Information: Please schedule follow up PCP appointment for after discharge from SNF, Bring discharge instructions with you Follow Up with RIMMA POWERS MD When:10/08/2024 04:00 PM EDT Where:[facility] ([address], [place]) Additional Information: Neurosurgeon The Following Activity and [...] standard right Seat cushion, 99 month(s), Tyler [id number], 09/02/24 8:22:00 EDT Transfer of Care Wound [...] depending on your insurance coverage. Check with your[employer] company about what is covered. Keeping follow-up [...] Document Reviewed: 08/04/2017 Elsevier Patient Education 2020 [employer] Additional Information VACCINATE! IT SAVES LIVES! Members of the community who have not yet received the COVID-19 vaccine and would like to receive it can visit one of [facility] vaccine clinics. There are many vaccine clinic locations within the [facility]. For locations and available times, please visit [email or web address]/. It is important to note that some COVID mobile vaccine clinics are held outdoors and may be canceled in rainy or stormy conditions. To learn more about pediatric vaccinations (ages 5-11), we invite you to visit the [facility] webpage. https://www.[facility]s.org/pages/5386-Qneoi-Uspvzsqmdek-Fyureklgko-Nwvfh-Mwy stions.htmlTo learn more about the COVID-19 vaccine, we invite you to visit the CDC website for a list of frequently asked questions.https://www.cdc.gov/coronavirus/2019-ncov/vaccines/faq.html [facility] Patient Portal Access Instructions: Stay connected with your healthcare team and access your personal medical information anytime with the [facility] Patient Portal. Please follow the directions below to create your [facility]xt[facility] account: 1.Access the email account you provided upon registration to the hospital/physician office.2.Look for an invitation email from [facility].3.Open the email and access the invitation link: AcceptInvitation to Txt4.4.Fill in the required richards to create your account. To access your account, visit [employer]OneChart. Click the blue button labeled "Access Patient [...] who you will allowto register on the [facility] Patient Portal for access to your information. You can also access the [facility] Patient Portal on the [facility] dahlia. Simply click on "Patient Portal" and then log into your account. If you would like to receive a full copy of your medical records, please contact the [facility] Medical Records Department by calling [phone], Monday through Monday between 8 a.m. and [...] Call your local pharmacy or go to [email or web address] to find one close to you.3.Make use of household items: Use cat litter or old coffee grounds to dispose medications if other options arenot available. Mix your drugs with these household products, seal them in an airtight container andthrow it into the garbage. Call [facility]: [phone] to be sure your drugs can be [...] aware that I should contact my doctor. Patient/Pruner Signature: Date/Time: Relationship to Patient: Witness Name/Signature: Date/Time: Tyler [id number] Note Discharge Instructions Thank you for allowing [...] KAMERON CARUSO MD When:Within 3-7 days Where:[address] [place] [address]- Additional Information: Please schedule follow up PCP appointment for after discharge from SNF, Bring discharge instructions with you Follow Up with RIMMA POWERS MD When:10/08/2024 04:00 PM EDT Where:[facility] ([address], [place]) Additional Information: Neurosurgeon The Following Activity and [...] standard right Seat cushion, 99 month(s), Tyler [id number], 09/02/24 8:22:00 EDT Transfer of Care Wound [...] depending on your insurance coverage. Check with [employer] company about what is covered. Keeping follow-up [...] 08/04/2017 Document Revised: 05/04/2018 Document Reviewed: 08/04/2017 ElseTango Health Patient Education 2020 [employer] Additional Information VACCINATE! IT SAVES LIVES! Members of the community who have not yet received the COVID-19 vaccine and would like to receive it can visit one of [facility] vaccine clinics. There are many vaccine clinic locations within the [facility]. For locations and available times, please visit [email or web address]/. It is important to note that some COVID mobile vaccine clinics are held outdoors and may be canceled in rainy or stormy conditions. To learn more about pediatric vaccinations (ages 5-11), we invite you to visit the [facility] webpage. https://www.[employer]iess.org/pages/1546-Tgipt-Mgjojszlkzn-Pplzlblbvz-Wgvpx-Omg stions.htmlTo learn more about the COVID-19 vaccine, we invite you to visit the CDC website for a list of frequently asked questions.https://www.cdc.gov/coronavirus/2019-ncov/vaccines/faq.html [facility] Patient Portal Access Instructions: Stay connected with your healthcare team and access your personal medical information anytime with the [facility] Patient Portal. Please follow the directions below to create your Txt4 account: 1.Access the email account you provided upon registration to the hospital/physician office.2.Look for an invitation email from [facility].3.Open the email and access the invitation link: AcceptInvitation to Txt4.4.Fill in the required richards to create your account. To access your account, visit [employer]/Smit OvensOneChart. Click the blue button labeled "Access Patient [...] who you will allowto register on the [facility]jb properties [facility] servicesChart Patient Portal for access to your information. You can also access the [facility] on the [facility] dahlia. Simply click on "Patient Portal" and then log into your account. If you would like to receive a full copy of your medical records, please contact the [facility] Medical Records Department by calling [phone], Monday through Monday between 8 a.m. and [...] Call your local pharmacy or go to [email or web address] to find one close to you.3.Make use of household items: Use cat litter or old coffee grounds to dispose medications if other options arenot available. Mix your drugs with these household products, seal them in an airtight container andthrow it into the garbage. Call [facility]: [phone] to be sure your drugs can be [...] aware that I should contact my doctor. Patient/Pruner Signature: Date/Time: Relationship to Patient: Witness Name/Signature: Date/Time: [id number] Physical medicine and rehab Discharge summary Date [...] in discharge valuation. She was admitted to [facility] from [facility] stay 08/02 [...] self-care assistance needs decision made to request custodial facility. Approval is requested. Patient was to [...] Ordered -- 08/15/24 17:18:00 EDT, AMI HEATON APRN-FENCE RIDER, [facility] per policy Physical Exam Vitals [...] oral tablet)1 tab(s) PEG tube every day. xlmjwmwzzzofp32 Microgram PEG tube once a day. metoprolol [...] KAMERON CARUSO MD When:Within 3-7 days Where:[address] [place] [address]- Additional Information: Please schedule follow up PCP appointment for after discharge from SNF, Bring discharge instructions with you Follow Up with RIMMA POWERS MD When:10/08/2024 04:00 PM EDT Where:[facility] ([address], [place]) Additional Information: Neurosurgeon Follow Up Appointments No [...] HA DO on 09/09/2024 01:46 PM Tyler [id number] Nurse Progress note Nursing GG Entered On: 09/09/2024 10:55 EDT Performed On: 09/09/2024 10:55 EDT by Abigail Rodas RN Nursing GG's OT GG Grid Eating : Not Completed Abigail Rodas RN - 09/09/2024 10:55 EDT Digitally Signed by Abigail Rodas RN on 09/09/2024 10:55 AM Tyler [id number] Nurse Progress note Nursing GG Entered On: 09/08/2024 17:39 EDT Performed On: 09/08/2024 17:39 EDT by Rob Alarcon RN Nursing GG's OT GG Grid Eating : Not Completed Oral Hygiene : Not Completed Toilet Hygiene : Substantial/Maximal Assistance Toilet Transfer : Substantial/Maximal Assistance Rob Alarcon RN - 09/08/2024 17:39 EDT Digitally Signed by Rob Alarcon RN on 09/08/2024 05:39 PM [facility] Nurse Progress note Pt had 250ml residual, 12:30pm bolus was held! Digitally Signed by Rob Alarcon RN on 09/08/2024 12:47 PM Tyler [id number] Physical medicine and rehab Progress note Rehab [...] candidate. She was then transferred to a [facility] for further management. CT of head [...] Rate64(SEP 05 16:46)64(SEP 05 16:46)85(SEP 05 09:40) MDV239(SEP 05 16:36)138(SEP 05 16:36)H 158(SEP 05 09:52) [...] considered. Therapy notes reviewed. Discussed with staff. PM/ reviewed and unchanged Note: This dictation was [...] HA DO on 09/06/2024 12:34 PM Tyler GarciaHwjmdnag45-68-3017 Hospital Discharge instructions Patient Education 09/05/2024 14:15:00 [...] depending on your insurance coverage. Check with [employer] company about what is covered. Keeping follow-up [...] 08/04/2017 Document Revised: 05/04/2018 Document Reviewed: 08/04/2017 Lien Enforcement Patient Education 2020 [employer]. Follow Up Care 08/15/2024 08:51:25 With:RIMMA POWERS MD Address: [facility] ([address], [place]) When:10/08/2024 16:00:00 Comments:Neurosurgeon With:JONNIE BANSAL MD Address: [facility] When: Unknown Comments:GI, No appointment needed until PEG is ready to be removed or concerns arise With:KAMERON CARUSO MD Address: [address] [place] [address]- When:3-7 days Comments:Please schedule follow up PCP [...] less than 3 seconds. Ongoing hemiparesis VITALS CopqohAatwGRIugifGUMoO3IFA9OcjmOl(kg) 09/05 09:5236.3--748505IU 09/05 09:40----85----RA 09/04 23:3236.6--257688XN 09/04 21:2436.5--759444YE 09/04 16:01----72----RA 24 Hr Tmax: 36.6 at [...] SBP (mmHg) < 110, 1st dose location: [facility], 1, 08/15/24 17:09:00 EDT Active PRN Meds: [...] 2 minutes, REPEAT x1., 1st dose location: [facility], 0, 08/15/24 1... glucose (Dextrose 50% IV [...] None Problems (6) CVA (cerebral vascular accident) (297767900) Diabetes mellitus (336432288) Dysphagia (11245958) Hyperlipidemia (22691759) Hypertension (0593290494) Osteoarthritis (2834737894) ASSESSMENT/PLAN: Right basal ganglia hemorrhage, status post thrombectomy with revascularization follow-up appointment with neurosurgery on 10/08. Continue work with physical and Occupational Therapy with goal to return home at discharge. reports that referrals have been sent to custodial facilities yesterday. Currently has 4 options in [...] CATHERINE NEWMAN on 09/05/2024 04:55 PM Tyler [id number] Physical medicine and rehab Progress note Subjective [...] area Neuro: Left upper extremity hemiparesis VITALS TuabkhZsfrCVSnugeFNPfD0KYD2ThzqCc(kg) 09/04 23:3236.6--946501BT 09/04 21:2436.5--487713KQ 09/04 16:01----72----RA 09/04 12:10--------97RA 09/04 10:5435.9--247727VV 24 Hr Tmax: 36.6 at 09/04 23:32 [...] tab(s), PEG, Daily, 08/15/24 17:09:00 EDT balsam Troy-castor oil topical (Venelex 788 mg-87 mg/g topical [...] SBP (mmHg) < 110, 1st dose location: [facility], 1, 08/15/24 17:09:00 EDT Active PRN Meds: [...] 2 minutes, REPEAT x1., 1st dose location: [facility], 0, 08/15/24 1... glucose (Dextrose 50% [...] None Problems (6) CVA (cerebral vascular accident) (041923824) Diabetes mellitus (866673687) Dysphagia (01787860) Hyperlipidemia (87285348) Hypertension (3882372968) Osteoarthritis (9846855544) ASSESSMENT/PLAN: Acute right basal ganglia hemorrhage with [...] sugars closely. [facility] in place with ice chips only, [...] NANDO HUTTON DO on 09/05/2024 10:12 AM [facility] HospitalMhmbnqlq73-49-7339 Physical medicine and rehab Progress note Rehab [...] candidate. She was then transferred to a [facility] for further management. CT of head [...] Rate64(SEP 03 15:52)64(SEP 03 15:52)90(SEP 03 08:28) FQP992(SEP 04 05:38)112(SEP 04 05:38)127(SEP 03 08:00) DBP70(SEP [...] SILVINO HA DO on 09/04/2024 11:55 AM [facility] HospitalOtnuywxr44-95-9742 Note Subjective Patient states she is doing [...] area Neuro: Left upper extremity hemiparesis VITALS EnzplqXqxoTLLcsddVUIrA8EBS5QfgtQx(kg) 09/03 21:4136.4--726955RX 09/03 15:52----64---- 09/03 08:46 09/03 08:28----90---- 09/03 08:0036.4--614265WY 24 Hr Tmax: 36.4 at 09/03 21:41 [...] tab(s), PEG, Daily, 08/15/24 17:09:00 EDT balsam Troy-castor oil topical (Venelex 788 mg-87 mg/g topical [...] SBP (mmHg) < 110, 1st dose location: [facility], 1, 08/15/24 17:09:00 EDT oxybutynin (oxybutynin [...] 2 minutes, REPEAT x1., 1st dose location: [facility], 0, 08/15/24 1... glucose (Dextrose 50% IV [...] None Problems (6) CVA (cerebral vascular accident) (151765145) Diabetes mellitus (181198756) Dysphagia (55409324) Hyperlipidemia (69901023) Hypertension (5900503846) Osteoarthritis (0584302736) ASSESSMENT/PLAN: Acute right basal ganglia hemorrhage with [...] HUTTON DO on 09/05/2024 08:57 AM Tyler [id number] Note Subjective Patient states that she is [...] area Neuro: Left upper extremity hemiparesis VITALS UmqvgzXzgfFLIgtiaTWVlT2VNL6EwmyKz(kg) 09/03 00:2636.3--043319ZF 09/02 21:5136.2--501890PS 09/02 16:56----88--98RA 09/02 10:40 RA 09/02 09:0936.0--148109WX 24 Hr Tmax: 37.0 at 09/02 05:55 [...] tab(s), PEG, Daily, 08/15/24 17:09:00 EDT balsam Troy-castor oil topical (Venelex 788 mg-87 mg/g topical [...] SBP (mmHg) < 110, 1st dose location: [facility], 1, 08/15/24 17:09:00 EDT oxybutynin (oxybutynin 5 [...] 2 minutes, REPEAT x1., 1st dose location: [facility], 0, 08/15/24 1... glucose (Dextrose 50% IV [...] None Problems (6) CVA (cerebral vascular accident) (666996358) Diabetes mellitus (124841557) Dysphagia (02573157) Hyperlipidemia (30234775) Hypertension (3282714645) Osteoarthritis (8031490333) ASSESSMENT/PLAN: Acute right basal ganglia hemorrhage with [...] rs closely. Follow-up with neurosurgery 10/08 Philippe [facility] protocol in place with ice chips only, [...] dictation software and may contain typographical errors. IJhonatan RN, am scribing for , and in the presence of Dr. Hutton. I, Dr. Hutton, personally performed the services described in this documentation, as scribed by, Jhonatan ENRIQUEZ in my presence and it is both accurate and complete. Digitally Signed by NANDO HUTTON DO on 09/05/2024 08:57 AM Tyler GarciaUdkixjcp03-88-7260 Note* Exam Date Time Procedure Performing Provider Status 09/02/24 2:[address] Head or Brain w/o Contrast Brenda MCCLELLAN MD; Auth (Verified) [id number] ORIGINAL HISTORY: Lethargy COMPARISON: No TECHNIQUE: Routine [...] 08/30/2024 10:09 AM EDT Marya with [facility] notified. [facility]04-18-2025 Miscellaneous Notes* Telephone Encounter - Fouzia Miller LPN - 08/30/2024 10:09 AM EDT Maray with [facility] notified. * Telephone Encounter - Mj Glover APRN.CNP - 08/30/2024 9:19 AM EDT Please let know that Dr. Caruso's team will follow HH orders. Okay to proceed. Mj Glover APRN.CNP * Telephone Encounter - Jaiden Paulino RN - 08/30/2024 9:07 AM EDT Marya- [facility] reports patient was in [facility] with dx: stroke, and transferred to [facility]. Pt will be discharged from [facility] on 09/07/24 to home with [facility] SN PT OT ST & HHAide. Asking if pcp agreeable to follow for [facility]. Please phone Marya with verbal: [phone] documented in [facility] Telephone encounter Note * Telephone Encounter - Mj Glover APRN.CNP - 08/30/2024 9:19 AM EDT Please let know that Dr. Caruso's team will follow HH orders. Okay to proceed. Mj Glover APRN.CNP [facility]04-18-2025 Telephone encounter Note* Telephone Encounter - Jaiden Paulino, ZOE - 08/30/2024 9:07 AM EDT [facility] reports patient was in [facility] with dx: stroke, and transferred to [facility]. Pt will be discharged from [facility] on 09/07/24 to home with [facility] SN PT OT ST & HHAide. Asking if pcp agreeable to follow for [facility]. Please phone Marya with verbal: [phone] [facility]04-14-2025 Note REFERRING PHYSICIAN: Silvino Ha DO. CONSULTING PSYCHOLOGIST: Matthew Gibson, PhD. REASON FOR REFERRAL: Neuropsychological exam. HISTORY OF PRESENT ILLNESS: Ms. Acuna is a 78-year-old right-handed white female admitted to [facility] from [facility] on 08/15/2024 after developing left-sided weakness [...] mild concussions suffered after a career in [employer]. No residual deficits reported. No other MANAGER LEAN injuries or illnesses. MENTAL HEALTH HISTORY: No [...] of NPO. and Mrs. Acuna live in [place]. 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 She has a high school diploma from her hometown in [place], [place]. TEST RESULTS: I used the Cognistat, [...] be determined. MATTHEW GIBSON, PhD GM/NTS JOB#: [id number] DICTATION ID#: [id number] Digitally Signed by MATTHEW GIBSON PhD on 08/27/2024 08:21 AM Tyler Budcgxxo90-95-2776 Note* Exam Date Time Procedure Performing Provider Status 08/25/24 1:46 PM XR Hand and Wrist 6 Views Left Buck DUNNE W DO; Auth (Verified) [id number] ORIGINAL EXAMINATION: 3 XRAY VIEWS OF THE [...] PM XR Shoulder Minimum 2 Views Left ROSANNE JAMAR Chang DO; Auth (Verified) [id number] ORIGINAL EXAMINATION: TWO XRAY VIEWS OF THE [...] 08/25/2024 2:26:45 PM Ordering Provider: JACKLYN Scott Iwcytdfu38-93-7095 Note* Exam Date Time Procedure Performing Provider Status 08/25/24 1:43 PM XR Humerus Minimum 2 Views Left JAMAR DUNNE DO; Auth (Verified) [id number] ORIGINAL EXAMINATION: TWO XRAY VIEWS OF THE [...] 1 View Contributor_system, FUJ I; Auth (Verified) [id number] ORIGINAL EXAMINATION: ONE XRAY VIEW OF THE [...] 08/18/2024 3:14:15 PM Ordering Provider: NANDO Scott Kuruzgga76-43-2025 Evaluation + Plan noteExtracted from: Title:Clinical Document Author:EZEQUIEL HUSTON RN-FENCE RIDER Date:08/16/24 Acute Inpatient Rehab Histor y and Physical Date of Service: 08/16/2024 Date of Admission: 08/15/2024 Attending Physician: Dr. Ha [employer] 1.1 left body involvement, right brain stroke Etiologic Diagnosis Hemorrhagic infarct involving right basal ganglia, mass effect with effacement of right lateral ventricle, tiny infarct in right cerebellum History of Present Illness 78-year-old female noted to home in inpatient rehab from [facility] stay 08/02 - 08/15 who is [...] candidate. She was then transferred to a [facility] for further management. CT of head [...] feedings. Patient deemed medically stable transferred to [facility] inpatient rehab unit for physical and occupational [...] spouse, first- floor set up. Primary Registered Nurses: Self. Safe place to go: Yes. Lives [...] Signs(Last 24 hrs)__Last Charted Minimum Maximum Heart Rate80(APR 03 20:06)80(AUG 15 20:06)80(AUG 15 20:06) NSI548(AUG 16 00:03)128(AUG 16 00:03)140(AUG 15 17:47) DBP76(AUG 16 00:03)76(AUG 16 00:03)80(AUG 15 17:47) 36hr Labs 08/15 1805 Blood Glucose, Pnbgmniyr158T Blood Glucose, Xhompjpuw195H Blood Glucose TSee Flowsheet Assessment/Plan Debility and [...] it is both accurate and complete. Tyler Garcia 04-04-2025 Physical medicine and rehab Consult note INPATIENT REHAB MEDICAL CONSULT DATE OF ADMISSION: 08/16/2024 CC: Acute right basal hemorrhage HISTORY OF PRESENT ILLNESS: This is a 78-year-old female admitted to [facility] inpatient rehab unit from [facility] stay 08/02 [...] was deemed medically stable and transferred to [facility] inpatient rehab unit for physical and occasional [...] Rate80(AUG 15 20:06)80(AUG 15 20:06)80(AUG 15 20:06) FXZ328(AUG 16 00:03)128(AUG 16 00:03)140(AUG 15 17:47) DBP76(AUG [...] reviewed. 36hr Labs 08/15 1805 Blood Glucose, [id number] Blood Glucose, [id number] Blood Glucose TSee Flowsheet ASSESSMENT AND PLAN: [...] will follow during acute rehabilitation stay at [facility] with the goal [...] by CATHERINE NEWMAN on 08/17/2024 04:53 PM [id number] rehab History and physical [...] noted to home in inpatient rehab from [facility] stay 08/02 -08/15 who is past [...] candidate. [facility] [...] feedings. Patient deemed medically stable transferred to [facility] inpatient rehab unit for physical and occupational [...] spouse, first- floor set up. Primary Registered Nurses: Self. Safe place to go: Yes. Lives [...] Rate80(AUG 15 20:06)80(AUG 15 20:06)80(AUG 15 20:06) QTS839(AUG 16 00:03)128(AUG 16 00:03)140(AUG 15 17:47) DBP76(AUG 16 00:03)76(AUG 16 00:03)80(AUG 15 17:47) 36hr Labs 08/15 1805 Blood Glucose, [id number] Blood Glucose, Lucsjjhqc169D Blood Glucose TSee Flowsheet Assessment/Plan Debility and [...] EZEQUIEL HUSTON on 08/22/2024 05:17 AM Tyler [id number] Miscellaneous Notes* Nursing Notes - Robson Steel [...] pacing over x3-5 sessions Outcome: Ongoing Problem: [employer] IN[employer]URE CONSULTANT - Cognition Goal: Orientation Log - Patient [...] pacing over x3-5 sessions Outcome: Ongoing Problem: [employer] IN[employer]URE CONSULTANT - Cognition Goal: Orientation Log - 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 - If used skilled nursing, initial PEG should be changed in 6-12 months depending on tube condition. - No plans for repeat outpatient EGD at this time based on clinical status Jonnie Mccabe MD Division of Gastroenterology, Hepatology, and Nutrition Clinical Fellow PGY-4 Pager: [phone] * Plan of Care - Manisha Cheema [...] what the specific medication was. Daughter, Keagan [phone] would be able to answer questions. Catherine [...] oropharyngeal swallow function to most appropriately guide [employer] INFRASTRUCTURE CONSULTANT plan of care Outcome: Met Goal: Bolus [...] readiness for diet advancement Outcome: Met Problem: [employer] INFRASTRUCTURE CONSULTANT - Cognition Goal: Orientation Log - Patient [...] better assess deficits and most appropriately guide [employer] INF[employer]STRU[employer]URE CONSULTANT plan of care Outcome: Met Goal: Attention: [...] of Care: 1. Diet: NPO. Advancement per team/[employer] IN[employer]RASTRUCTURE CONSULTANT recommendation 2. Ordered TF: Glucerna 1.5 @ [...] readiness for diet advancement Outcome: Ongoing Problem: [employer] IN[employer]URE CONSULTANT - Cognition Goal: Orientation Log - Patient [...] better assess deficits and most appropriately guide [employer] IN[employer]STRU[employer]URE CONSULTANT plan of care Outcome: Ongoing * Nursing Notes - Aniyah Torre RN - 08/02/2024 6:13 PM EDT On admission to [facility], from [place] a dual RN initial assessment [...] from previous assessment. Pt transferred to [facility] via cart accompanied by Denae ENRIQUEZ. T [...] under emergency consent. SURGEON(S): Prema Ramos MD BASEBOARD HEATING INSTALLER(S): None ANESTHESIA: Monitored anesthesia care DESCRIPTION OF [...] - 08/02/2024 3:26 PM EDT Lindsay Acuna ([id number]) PRE OPERATIVE DIAGNOSIS Cerebral infarction due to [...] - Primary ANESTHESIOLOGIST Anesthesiologist: Tameka Ruth MD RUGBY UNION FOOTBALLER: Bebo Barboza APRN-RUGBY UNION FOOTBALLER SURGICAL STAFF Director Translational: Rachell Ruffin RN Light Armored Vehicle Officer: Paulina Muñiz; Radha Morales COMPLICATIONS None ESTIMATED BLOOD LOSS Minimal SPECIMENS No specimen sent * No specimens in log * Prema Ramos MD August 02, 2024 3:26 PM documented in [facility]The [facility] History of Present illness Narrative* OWEN Benavides - 08/15/2024 9:01 AM EDT Care Management Discharge Note Selected Continued Care - Admitted Since 08/02/2024 Destination Coordination complete. Service Provider Services Address Phone Fax Patient Preferred [facility] Inpatient Rehabilitation [address] [address] -- -- Internal Comment last updated by OWEN Benavides 08/15/2024 0901 Report fax: [phone] Transport Request Mode of Transfer: S Name of Discharge Transport Company: [facility] Transport ETA: 08/15/2024 @ 1030 Patient medically stable for discharge per physician/medical team. Pt has neurology appointment scheduled. Pt/ to schedule appointment with PCP. Patient/Pruner remain in agreement withthe discharge plan. [employer] * OWEN Benavides - 08/14/2024 3:17 PM EDT Placement Plan Expected Discharge Date: 08/15/2024 Referred Level of Care: IPR Current Referrals and Status 1. [facility] obtained precertification for Pt starting tomorrow. Pt is set-up to leave via ambulance tomorrow at 1030. CM updated Pt's by phone. IPR will provide CM with the best phone and fax numbersfor RN report tomorrow morning. [employer] * Marybeth Ayoub - 08/14/2024 2:51 PM EDT Care Management Progress Note Transportation for discharge arranged Mode of Transfer: (P) BLS Name of Discharge Transport Company: (P) [facility]charge Transport ETA: (P) 08/15/2024 @ 1030 Pick-up from [facility] 1032/A Destination Tyler Tariqwn IPR [address] [facility] [address] [id number] OWEN Morrell [employer] Associate Marketing Performance Analyst [phone] * Jazzy Aguiar - 08/14/2024 9:47 AM [...] position Mobility Assessment/Intervention: Supine to Sit Mobility [place] Level: Supine->Sit: moderate assist (50% patient effort) Physical Assist: Supine->Sit: 2 person assist Bed Features/Set-up: Supine->Sit: Head of bed elevated, Use of bed rail Skilled Rationale: Verbal cues, Tactile cues, Hand placement, Positioning, Technique of activity Skilled Intervention/Details: Supine->Sit: Cues for technique of transfer and pt needing increased assistance for managing legs and trunk to EOB positioning Transfer Assessment/Intervention: Sit to Stand Transfer [place] Level: Sit->Stand: moderate assist (50% patient effort) [...] hand held support Stand to Sit Transfer [place] Level: Stand->Sit: moderate assist (50% patient effort) Physical Assist: Stand->Sit: 2 person assist Assistive Device: Stand->Sit: gait belt, hand held assist Skilled Rationale: Verbal cues, Tactile cues, Hand placement, Positioning, Controlled descent for sitting Skilled Intervention/Details: Stand->Sit: Cues for positioning with BSC and recliner, pt provided bilat hand held support and needing increased support for managing a controlled descent Bed-Chair Transfer [place] Level: Bed<->Chair: maximum assist (25% patient effort) [...] managing L side during transfer Toilet Transfer [place] Level: Toilet: moderate assist (50% patient effort) [...] person, Oriented to place, Oriented to situation ("[place]" "hospital" "September" "2024" "stroke") Following Commands: Follows [...] blocking Mobility Assessment/Intervention: Supine to Sit Mobility [place] Level: Supine->Sit: moderate assist (50% patient effort) [...] sitting) Transfer Assessment/Intervention: Sit to Stand Transfer [place] Level: Sit->Stand: moderate assist (50% patient effort) Physical Assist: Sit->Stand: 2 person assist Assistive Device: Sit->Stand: gait belt Skilled Rationale: Arm in arm, Patellar block, Ischial assist, Facilitate anterior shift, Full extension to upright positioning/posture, Finding/maintaining midline positioning Skilled Intervention/Details: Sit->Stand: repeat cues to avoid significant L lean with improvement last standing. x1 from EOB, x2 from BSC Stand to Sit Transfer [place] Level: Stand->Sit: moderate assist (50% patient effort) Physical Assist: Stand->Sit: 2 person assist Assistive Device: Stand->Sit: gait belt Skilled Rationale: Arm in arm, Controlled descent for sitting Skilled Intervention/Details: Stand->Sit: last trial assisted R hand to recliner arm rest and ongoing cues for wt shift to R Bed-Chair Transfer [place] Level: Bed<->Chair: maximum assist (25% patient effort) [...] with a railin - Total Assistance CURRENT [facility] Mobility Raw Score: [address] [facility] Mobility Functional Limitation: 86.62% Impaired in [...] 10 Treating Therapist: Shaina Rosales PT, DPT [id number] 08/14/2024 Additional Details: PT Co-Eval/Treatment Information Co-evaluation/co-treatment [...] Physical Therapy Discharge Summary. * Tanja Cason, [employer] IN[employer]URE CONSULTANT - 08/14/2024 8:37 AM EDT Acute Care [...] on the below outcome measures/assessment score(s) and [employer] INFRASTRUCTURE CONSULTANT clinicaljudgment, discharge destination recommendation is: IPR Barriers to discharge home: 1:1 assist needed for IADL's including medication management and finances Supporting factors for discharge setting: Impaired swallow function limiting nutritional status andsafety with oral intake, Impaired cognitive skills limiting safety/insight Acute [employer] IN[employer]STRU[employer]URE CONSULTANT Outcomes Tracking Communicate basic wants and needs?: [...] independent carry over. Strong family support. Ongoing [employer] IN[employer]URE CONSULTANT s indicated. Subjective information: Alert, present. SO referenced his notes from yesterday and reportedcarry over of exercises yesterday. Patient with zero recall Pain: Nonverbal indicator not present Precautions: Patient Safety Communication Prior to Visit: Nursing Lines/Tubes/Drains (Rehab Status): Telemetry, Tube feed Existing Precautions/Restrictions: fall Respiratory Status: O2 Sat (%): 96 % (08/14 0711) O2 Device: room air (08/14 0947) Acute [employer] IN[employer]URE CONSULTANT Goals Plan of Care by Tanja Cason MI[employer] INFRASTRUCTURE CONSULTANT at 08/14/2024 2:42 PM Version 1 of [...] RoM to achieve technique. Outcome: Ongoing Problem: [employer] INFRASTRU[employer]URE CONSULTANT - Cognition Goal: Orientation Log - Patient [...] next session: 08/14 - ongoing exercises, education [employer] IN[employer]STRUCTURE CONSULTANT Outcomes: FOIS 2 Speech Language Pathologist: RIKI lBancas Time In: 836 Time Out: 904 Total Visit Time: 28 minutes Total Treatment Time (skilled, billable minutes): 28 minutes Non-billable assistance during session: na Assisted by during session: na PPE used during patient interaction: gloves Patient location/status at end of session: bed with head of bed elevated Patient alarms at end of session: none altered Needs in reach. MI[employer]FT INFRASTRUCTURE CONSULTANT Evaluation and Treatment Time Speech Therapy - Individual 80915: 14 Swallowing Dysfunction Treatment 00769: 14 Upon discontinuation of Acute Care Speech [...] on the below outcome measures/assessment score(s) and MI[employer] INFRASTRUCTURE CONSULTANT clinicaljudgment, discharge destination recommendation is: Inpatient Rehab Facility Barriers to discharge home: 1:1 assist needed for IADL's including medication management and finances Supporting factors for discharge setting: Impaired swallow function limiting nutritional status andsafety with oral intake, Impaired cognitive skills limiting safety/insight Acute [employer] INFRASTRUCTURE CONSULTANT Outcomes Tracking Communicate basic wants and needs?: [...] O2 Device: room air (08/13 710) Acute [employer] INFRASTRUCTURE CONSULTANT Goals Plan of Care by Tanja Cason MI[employer]OSOFT INFRASTRUCTURE CONSULTANT at 08/13/2024 11:10 AM Version 1 of [...] 10 reps this session. Outcome: Ongoing Problem: MI[employer] INFRASTRUCTURE CONSULTANT - Cognition Goal: Orientation Log - Patient [...] considerations: Cognition Patient Instruction/Education comments: Role of MI[employer] INFRASTRUCTURE CONSULTANT, presence and normalized frustration with cognitive-communicative impairments. Focused on memory this date and that patient does not recall education so perseverative questions are normal. Reviewed intermittent silent aspiration from MBS last weekand ongoing signs of dysphagia this session, will plan to coordinate timing for repeat instrumentalwith care team Plan for next session: 08/13 -fair MI[employer] INFRASTRUCTURE CONSULTANT Outcomes: FOIS 2 Speech Language Pathologist: RIKI [...] of session: none altered Needs in reach. MI[employer] INFRASTRUCTURE CONSULTANT Evaluation and Treatment Time Speech Therapy - Individual 13242: 12 Swallowing Dysfunction Treatment 83572: 13 Upon discontinuation of Acute Care Speech Therapy Services or patient discharge from the hospital this note represents the current Speech Therapy Discharge Summary * OWEN Benavides - 08/12/2024 3:21 PM EDT Placement Plan Expected Discharge Date: 08/14/2024 Referred Level of Care: IPR Barriers: Medical Readiness & Precertification Current Referrals and Status 1. [facility]-accepted IPR started precertification today. [employer] * Jazzy Aguiar - 08/12/2024 10:46 AM [...] sinkside Mobility Assessment/Intervention: Supine to Sit Mobility [place] Level: Supine->Sit: moderate assist (50% patient effort) [...] positioning Transfer Assessment/Intervention: Sit to Stand Transfer [place] Level: Sit->Stand: maximum assist (25% patient effort) [...] maintaining upright posture Stand to Sit Transfer [place] Level: Stand->Sit: maximum assist (25% patient effort) Physical Assist: Stand->Sit: 2 person assist Assistive Device: Stand->Sit: gait belt, hand held assist Skilled Rationale: Verbal cues, Tactile cues, Hand placement, Positioning, Controlled descent for sitting Skilled Intervention/Details: Stand->Sit: Cues for positioning with recliner and using BUEs to help with appropriate positoining of hips in chair Bed-Chair Transfer [place] Level: Bed<->Chair: maximum assist (25% patient effort) Physical Assist: Bed<->Chair: 2 person assist Assistive Device: Bed<->Chair: gait belt Skilled Rationale: Verbal cues, Tactile cues, Hand placement, Positioning, Technique of activity Skilled Intervention/Details: Bed<->Chair: x1 from EOB to recliner on R. Pt needing increasedsupport for managing L side and sequencing steps for appropriate positioning with recliner Outcome Score(s): CURRENT [facility] Daily Activity Inpatient Short Form Putting on/Taking Off Lower Body Clothin - Total Assistance Bathin - A Lot of Assistance Toiletin - Total Assistance Putting on/Taking Off Upper Body Clothin - A Lot of Assistance Groomin - A Lot of Assistance Eatin - Total Assistance CURRENT [facility] Activity Raw Score: [address] [facility] Activity Functional Limitation/Modifier: 79.59% Currently Impaired [...] speech and L hemiplegia. She presented to [facility] and was seen on Telestroke, NIHSS 12. [...] goal TF volume. Pt last assessed by MICROSOFT INFRASTRUCTURE CONSULTANT 08/08 with recommendations for NPO. S/p PEG [...] chips. Will also increase free water flushes. MI[employer]OSOFT INFRASTRUCTURE CONSULTANT to see pt tomorrow. Nutrition Focused Physical Exam: Nutrition Focused Physical Exam Completed?: completed Subcutaneous Fat Loss: Orbital Region (Orbital Fat Pads): WDL Cheek Region (Buccal Fat Pads): WDL Upper Arm Region (Triceps): WDL Thoracic and Lumbar Region (Ribs, Lower Back, Midaxillary Line): WDL Muscle Wasting: Rastafari Region (Temporalis Muscle): deferred (lac over eyebrow) [...] kg (172 lb) 06/26/24 78.9 kg (174 lb)-[facility] 05/31/24 79 kg (174 lb 2.6 oz)-[facility] 11/28/23 80.6 kg (177 lb 9.6 oz)-[facility] 09/29/23 84 kg (185 lb)-[facility] meds reviewed: Scheduled: Reviewed, includes [...] Needs: Weight Used: 61 kg (IBW) EEN: 2087-0584 kcal/day (25-30 kcal/kg) EPN: 73-92 g/day (1.2-1.5 g/kg) EFN: 1830 mL/day (30 mL/kg) or per primary team Malnutrition Statement: Does the patient meet criteria for malnutrition: No *Based on [employer] Academy and ASPEN Indicators to Diagnose Malnutrition (AAIM) criteria (2012) Tianna Murray RD, LD, CSNC Pager #[phone] * Katiehumble Ramos, PT - 08/12/2024 10:22 AM EDT [...] standing. Mobility Assessment/Intervention: Supine to Sit Mobility [place] Level: Supine->Sit: moderate assist (50% patient effort) Physical Assist: Supine->Sit: 2 person assist Bed Features/Set-up: Supine->Sit: Head of bed elevated Skilled Rationale: Verbal cues, Tactile cues, Hand placement, Technique of activity Skilled Intervention/Details: Supine->Sit: verbal/tactile cues for instruction on transfer technique and mod A x 2 for LE and trunk management. Transfer Assessment/Intervention: Sit to Stand Transfer [place] Level: Sit->Stand: maximum assist (25% patient effort) Physical Assist: Sit->Stand: 2 person assist Assistive Device: Sit->Stand: gait belt Skilled Rationale: Verbal cues, Tactile cues, Hand placement, Technique of activity Skilled Intervention/Details: Sit->Stand: x2 trials with verbal/tactile cues for instruction on transfer technique, hand placement, and blocking left knee. Bed-Chair Transfer [place] Level: Bed<->Chair: maximum assist (25% patient effort) Physical Assist: Bed<->Chair: 2 person assist Assistive Device: Bed<->Chair: gait belt Skilled Rationale: Verbal cues, Tactile cues, Hand placement, Technique of activity Skilled Intervention/Details: Bed<->Chair: x1 trial from EOB to chair to the right. Verbal/tactile cues for instruction on transfer technqiue, blocking left knee. Outcome Score(s): CURRENT [facility] Basic Mobility Inpatient Short Form Turning over in bed: 2 - A Lot of Assistance Moving from lying on back to sittin - Total Assistance Moving to and from bed to chair: 1 - Total Assistance Sitting/standing from chair: 1 - Total Assistance Walk in hospital room: 1 - Total Assistance Climbing 3-5 steps with a railin - Total Assistance CURRENT [facility] Mobility Raw Score: [address] [facility] Mobility Functional Limitation: 92.36% Impaired in [...] Physical Therapy Discharge Summary. * Radha Gr, MOTORCYCLE MECHANIC APPRENTICE-FENCE RIDER - 08/11/2024 7:15 AM EDT NEUROVASCULAR STROKE SERVICE Daily Progress Note IDENTIFYING INFORMATION Lindsay Acuna MR# [id number] 08/11/2024 HISTORY OF PRESENT ILLNESS Lindsay Acuna is a 78 y.o. female with PMH significant for CAD, HTN, HLD, T2DM, Afib (on Eliquis, although patient reports she has not been taking it) who presents with L hemiplegia, slurred speech. LKW 0915 on 08/02, later found down with slurred speech and L hemiplegia. She presented to [facility] and was seen on Telestroke, NIHSS 12. [...] 2b revascularization. INTERVAL HISTORY 08/05: Transfer [place] [facility] tomorrow 08/06: Failed MBS. Increased lopressor. Spouse [...] today 08/11 -Rate controlled on metoprolol Dysphagia: -MI[employer]OS[employer]FT INFRASTRUCTURE CONSULTANT following -NPO, DHT + TF -Failed MBS [...] Lindsay Acuna will likely be discharged to [facility] when medically ready Radha Gr, JASIEL-FENCE RIDER 08/11/2024 10:17 AM VITAL SIGNS Temp: [97.2 [...] for specific therapeutic recommendations, please see the song and dance performer report of the speech pathologist. Examination performed [...] and neurological examinations as recorded by the SPECIALTY PLANT SUPERVISOR repeated and confirmed. I have personally reviewed [...] Progress Note IDENTIFYING INFORMATION Lindsay Acuna MR# [id number] 08/10/2024 HISTORY OF PRESENT ILLNESS Lindsay Acuna is a 78 y.o. female with PMH significant for CAD, HTN, HLD, T2DM, Afib (on Eliquis, although patient reports she has not been taking it) who presents with L hemiplegia, slurred speech. LKW 0915 on 08/02, later found down with slurred speech and L hemiplegia. She presented to [facility] and was seen on Telestroke, NIHSS 12. [...] 2b revascularization. INTERVAL HISTORY 08/05: Transfer to [place] [facility] tomorrow 08/06: Failed MBS. Increased lopressor. [...] as above -Rate controlled on metoprolol Dysphagia: -MI[employer]OFT INFRASTRUCTURE CONSULTANT following -NPO, DHT + TF -Failed MBS [...] Lindsay Acuna will likely be discharged to [facility] when medically ready Radha Gr APRN-FENCE RIDER 08/10/2024 7:14 AM VITAL SIGNS Temp: [97.4 [...] for specific therapeutic recommendations, please see the song and dance performer report of the speech pathologist. Examination performed by ARCADIO Nicole, under the direct supervision of Geryr Resendez M.D., who was immediately available on [...] skin and external bumper. - If used skilled nursing, PEG should be changed every 3-6 months [...] Hepatology, and Nutrition Clinical Fellow PGY-4 Pager: [phone] For follow up questions regarding this patient 7am to 5pm, contact the IBD consults fellow or DAHLIA on [employer] [facility]--> Internal Medicine--> Gastroenterology, Hepatology, & Nutrition--> IBD Consult Service Fel Day OR IBD Consult Service DAHLIA Day For urgent/stat calls or new consults 5pm to 7am or all day on the weekend, please page the on-callGI fellow on [employer] [facility]--> Internal Medicine--> Gastroenterology, Hepatology, & Nutrition--> 1st Call Fel Miriam OR STAT/NEW GI Cons Wknd Fel Day Cosigned by Niru Koch MD at 08/10/2024 2:11 PM EDT * OWEN Benavides - 08/09/2024 3:34 PM EDT Placement Plan Expected Discharge Date: Referred Level of Care: IPR Barriers: Medical Readiness and Precertification [facility] will start precertification on Monday after updated therapy notes are in. For Case Management assistance for the weekend, please contact for assistance as needed (8:00am-4:30pm) BIPIN: [phone] Candace: [phone] Johan: [phone] Wild: [phone] For Social Work assistance for the weekend, please contact for assistance as needed (8:00am - 4:30pm): BIPIN: [phone] Candace: [phone] Johan: [phone] Ross: [phone] * Radha Gr, JASIEL-FENCE RIDER - 08/09/2024 8:07 AM EDT NEUROVASCULAR STROKE SERVICE Daily Progress Note IDENTIFYING INFORMATION Lindsay Acuna MR# [id number] 08/09/2024 HISTORY OF PRESENT ILLNESS Lindsay Acuna is a 78 y.o. female with PMH significant for CAD, HTN, HLD, T2DM, Afib (on Eliquis, although patient reports she has not been taking it) who presents with L hemiplegia, slurred speech. LKW 0915 on 08/02, later found down with slurred speech and L hemiplegia. She presented to [facility] and was seen on Telestroke, NIHSS 12. [...] 2b revascularization. INTERVAL HISTORY 08/05: Transfer [place] [facility] tomorrow 08/06: Failed MBS. Increased lopressor. [...] as above -Rate controlled on metoprolol Dysphagia: -[employer]FT INFRASTRUCTURE CONSULTANT following -NPO, DHT + TF -Failed MBS [...] Lindsay Acuna will likely be discharged to [facility] when medically ready Radha Gr, JASIEL-FENCE RIDER 08/09/2024 8:07 AM VITAL SIGNS Temp: [97.3 [...] for specific therapeutic recommendations, please see the song and dance performer report of the speech pathologist. Examination performed [...] 08/12/2024 10:46 AM EDT * Shelton Steel, [employer] IN[employer]RASTRUCTURE CONSULTANT - 08/08/2024 1:10 PM EDT Acute Care [...] on the below outcome measures/assessment score(s) and [employer] INFRASTRUCTURE CONSULTANT clinicaljudgment, discharge destination recommendation is: Inpatient Rehab Facility Acute [employer] INFRASTRUCTURE CONSULTANT Outcomes Tracking Communicate basic wants and needs?: [...] pressions and introduction to effortful swallow exercise. MI[employer]OFT INFRASTRUCTURE CONSULTANT provided education regarding recommendation of NPO given [...] constraints (transport arrived for pt's CT scan). MI[employer]OSOFT INFRASTRUCTURE CONSULTANT will follow as able. Subjective information: Patient upright in chair, at bedside. Agreeable to [employer] CONSULTANT session. Pain: General Pain Documentation (Adult, OB, [...] room air Flow (L/min): [3] 3 Acute [employer] CONSULTANT Goals Plan of Care by RIKI Penaloza [...] phsyiology, risks of aspiration pneumonia). Educated regarding [employer] IN[employer] CONSULTANT role in swallow rehab and future POC Plan for next session: 08/06: cog tx and dysphagia exercises [employer] CONSULTANT Outcomes: FOIS: 1 Speech Language Pathologist: RIKI Penaloza Time In: 1310 Time Out: 1330 Total Visit Time: 20 minutes Total Treatment Time (skilled, billable minutes): 20 minutes Non-billable assistance during session: NA Assisted by during session: NA PPE used during patient interaction: gloves Patient location/status at end of session: chair Patient alarms at end of session: none altered Needs in reach. [employer] CONSULTANT Evaluation and Treatment Time Swallowing Dysfunction Treatment 83837: 20 Upon discontinuation of Acute Care Speech [...] feedback Mobility Assessment/Intervention: Supine to Sit Mobility [place] Level: Supine->Sit: moderate assist (50% patient effort) Physical Assist: Supine->Sit: 2 person assist Bed Features/Set-up: Supine->Sit: Use of bed rail, Head of bed elevated Skilled Rationale: Sequencing, Verbal cues, Hand placement, Positioning Skilled Intervention/Details: Supine->Sit: increased time/cues Transfer Assessment/Intervention: Sit to Stand Transfer [place] Level: Sit->Stand: moderate assist (50% patient effort) Physical Assist: Sit->Stand: 2 person assist Assistive Device: Sit->Stand: gait belt, hand held assist Skilled Rationale: Positioning, Sequencing, Hand placement, Verbal cues Skilled Intervention/Details: Sit->Stand: Pt educated in sit to stand transfers x 2 attempts, one from EOB and one from chair Bed-Chair Transfer [place] Level: Bed<->Chair: maximum assist (25% patient effort) [...] Mobility Assessment/Intervention: Stairs Assessment/Intervention: Outcome Score(s): CURRENT [facility] Basic Mobility Inpatient Short Form Turning [...] with a railin - Total Assistance CURRENT [facility] Mobility Raw Score: [address] [facility] Mobility Functional Limitation: 86.62% Impaired in [...] positioning Mobility Assessment/Intervention: Supine to Sit Mobility [place] Level: Supine->Sit: moderate assist (50% patient effort) [...] positioning Transfer Assessment/Intervention: Sit to Stand Transfer [place] Level: Sit->Stand: moderate assist (50% patient effort) Physical Assist: Sit->Stand: 2 person assist Assistive Device: Sit->Stand: gait belt, hand held assist Skilled Rationale: Verbal cues, Tactile cues, Hand placement, Positioning, Technique of activity Skilled Intervention/Details: Sit->Stand: x1 from EOB, x1 from recliner. Cues for technique and assuming an upright posture once standing Stand to Sit Transfer [place] Level: Stand->Sit: moderate assist (50% patient effort) Physical Assist: Stand->Sit: 2 person assist Assistive Device: Stand->Sit: gait belt, hand held assist Skilled Rationale: Verbal cues, Tactile cues, Hand placement, Positioning, Controlled descent for sitting Skilled Intervention/Details: Stand->Sit: Cues for positioning with recliner and using arms to help with controlled descent into chair Bed-Chair Transfer [place] Level: Bed<->Chair: maximum assist (25% patient effort) [...] appropriately position with chair. Outcome Score(s): CURRENT AM-PAC Daily Activity Inpatient [...] clinical decisions and judgements. * Bella Cardenas APRN-FENCE RIDER - 08/08/2024 7:21 AM EDT NEUROVASCULAR STROKE SERVICE Daily Progress Note IDENTIFYING INFORMATION Lindsay Acuna MR# [id number] 08/08/2024 HISTORY OF PRESENT ILLNESS Lindsay Acuna is a 78 y.o. female with PMH significant for CAD, HTN, HLD, T2DM, Afib (on Eliquis, although patient reports she has not been taking it) who presents with L hemiplegia, slurred speech. LKW 0915 on 08/02, later found down with slurred speech and L hemiplegia. She presented to [facility] and was seen on Telestroke, NIHSS 12. [...] 2b revascularization. INTERVAL HISTORY 08/05: Transfer to [place]. MBS tomorrow 08/06: Failed MBS. Increased lopressor. [...] as above -Rate controlled on metoprolol Dysphagia: -[employer] CONSULTANT following -NPO, DHT + TF -Failed MBS [...] Lindsay Acuna will likely be discharged to [facility] when medically ready Bella Cardenas, MOTORCYCLE MECHANIC APPRENTICE-FENCE RIDER 08/08/2024 2:53 PM VITAL SIGNS Temp: [97.4 [...] for specific therapeutic recommendations, please see the song and dance performer report of the speech pathologist. Examination performed [...] availability Current Referrals and Status 1. [facility]- Reserved CCM notified LUCIO student confirming after call with Patient's daughter that [facility] is facility of choice. Facility reserved. [...] patient and patient's spouse [facility], and Gisela is agreeable to [facility] as well. Updated SW student. Simin Resendez RN, BSN Clinical Wheel Borer [facility] * Chela Hannon - 08/07/2024 2:08 PM EDT Placement Plan GOVERNMENT CLERK met with Patient and spouse at bedside to discuss facility choice. Spouse mentioned that [facility] was first choice, though GOVERNMENT CLERK provided update that [facility] could not accept after reviewing. GOVERNMENT CLERK reviewed other IPR options with Spouse, who reports that [facility] would be facility of choice. Spouse discussed with daughter Gisela via phone, who is in agreement but requestsa return call. GOVERNMENT CLERK notified CCM. Chela Snyder, Social Work Student Available by Secure Chat Cosigned by OWEN Keller at 08/07/2024 2:11 PM EDT * Bella Cardenas APRN-FENCE RIDER - 08/07/2024 6:54 AM EDT NEUROVASCULAR STROKE SERVICE Daily Progress Note IDENTIFYING INFORMATION Lindsay Acuna MR# [id number] 08/07/2024 HISTORY OF PRESENT ILLNESS Lindsay Acuna is a 78 y.o. female with PMH significant for CAD, HTN, HLD, T2DM, Afib (on Eliquis, although patient reports she has not been taking it) who presents with L hemiplegia, slurred speech. LKW 0915 on 08/02, later found down with slurred speech and L hemiplegia. She presented to [facility] and was seen on Telestroke, NIHSS 12. [...] 2b revascularization. INTERVAL HISTORY 08/05: [place] MBS tomorrow 08/06: Failed MBS. Increased lopressor. [...] as above -Rate controlled on metoprolol Dysphagia: -[employer] CONSULTANT following -NPO, DHT + TF -Failed MBS [...] Lindsay Acuna will likely be discharged to [facility] when medically ready Bella Cardenas, MOTORCYCLE MECHANIC APPRENTICE-FENCE RIDER 08/07/2024 3:06 PM VITAL SIGNS Temp: [97.5 [...] for specific therapeutic recommendations, please see the song and dance performer report of the speech pathologist. Examination performed [...] authorization, transportation Current Referrals and Status 1. [facility]: Available 2. [facility]: Available 3. [facility]: Available (pending PEG or diet and their MD requested aspirin started before discharge) 4. [facility]: Available 5. [facility]: Unavailable, out of network 6. [facility]: Unavailable, Incorrect Level of Care 7. [facility] IPR: sent Met with patient and patient's spouse, Ike, at bedside to provide choice list. Ike called patient's daughter, Gisela Acuna, to discuss as well. Gisela requested information on private pay at [facility], messaged [facility] liaison and then provided information to Gisela. Gisela requested CM sendreferral to [facility] IPR. Plan for family to review choice list raman, CM/SW team will update patient and family regarding [facility] IPR response tomorrow morning. This CM's contact information provided to Ike Armand and Gisela Armand for any further questions. Simin Resendez RN, BSN Clinical Wheel Borer [facility] * Florinda Velasquez PT - 08/06/2024 [...] minutes Mobility Assessment/Intervention: Supine to Sit Mobility [place] Level: Supine->Sit: moderate assist (50% patient effort) Bed Features/Set-up: Supine->Sit: Head of bed elevated, Use of bed rail Skilled Rationale: Positioning, Sequencing Skilled Intervention/Details: Supine->Sit: step by step cues for sequencingg Transfer Assessment/Intervention: Sit to Stand Transfer [place] Level: Sit->Stand: moderate assist (50% patient effort) [...] left UE during transitional movements Bed-Chair Transfer [place] Level: Bed<->Chair: moderate assist (50% patient effort) Physical Assist: Bed<->Chair: 2 person assist Assistive Device: Bed<->Chair: gait belt, hand held assist Skilled Rationale: Positioning, Hand placement, Verbal cues, Sequencing Skilled Intervention/Details: Bed<->Chair: Pt educated in bed to BSC commode transfer x 2-3 steps with cues for LE sequencing, left LE weakness requiring intermittent blocking Gait/Functional Mobility Assessment/Intervention: Gait Assessment [place] Level: Gait: (mod/max) Physical Assist: Gait: 2 [...] prevent buckling. Stairs Assessment/Intervention: Outcome Score(s): CURRENT [facility] Basic Mobility Inpatient Short Form Turning [...] with a railin - Total Assistance CURRENT [facility] Mobility Raw Score: [address] [facility] Mobility Functional Limitation: 81.38% Impaired in [...] Physical Therapy Discharge Summary. * Nimesh Balderrama [facility] - 08/06/2024 1:42 PM EDT Department of Pharmacy Admission Medication Reconciliation Note Patient: Lindsay Acuna Room/Bed: 1043/A I have reviewed the patient's home medication list with the following sources Dispense Report. The home medication list status is: complete. All changes to the home medication list have been updated in [facility]. Updated [employer] Med List: Prior to Admission Medications Prescriptions [...] questions. Name: Nimesh Balderrama RPH Phone #: [phone] Date/Time: 08/06/2024 1:42 PM Time Spent: 10 [...] noted Mobility Assessment/Intervention: Supine to Sit Mobility [place] Level: Supine->Sit: moderate assist (50% patient effort) [...] completion. Transfer Assessment/Intervention: Sit to Stand Transfer [place] Level: Sit->Stand: (x 1 trial from EOB [...] and kyphotic posture. Stand to Sit Transfer [place] Level: Stand->Sit: moderate assist (50% patient effort) Assistive Device: Stand->Sit: gait belt (Arm and arm assist.) Skilled Rationale: Cues for increased safety, Initiation and execution of task, Technique of activity, Controlled descent for sitting, Ischial assist, Arm in arm, Tactile cues, Verbal cues, Hand placement, Sequencing, Positioning Bed-Chair Transfer [place] Level: Bed<->Chair: moderate assist (50% patient effort) [...] with left LE). Functional Mobility: Functional Mobility [place] Level: Functional Mobility/Gait: (Moderate-max assistance) Physical Assist: [...] overall decreased insight/awareness intodeficits. Outcome Score(s): CURRENT [facility] Daily Activity Inpatient Short Form Putting on/Taking Off Lower Body Clothin - Total Assistance Bathin - A Lot of Assistance Toiletin - Total Assistance Putting on/Taking Off Upper Body Clothin - A Lot of Assistance Groomin - A Lot of Assistance Eatin - Total Assistance ([place].) CURRENT [facility] Activity Raw Score: [address] [facility] Activity Functional Limitation/Modifier: 79.59% Currently Impaired [...] Occupational Therapy Discharge Summary. * Taran Traore APRN-FENCE RIDER - 08/06/2024 7:49 AM EDT NEUROVASCULAR STROKE SERVICE Daily Progress Note IDENTIFYING INFORMATION Lindsay Acuna MR# [id number] 08/06/2024 HISTORY OF PRESENT ILLNESS Lindsay Acuna is a 78 y.o. female with PMH significant for CAD, HTN, HLD, T2DM, Afib (on Eliquis, although patient reports she has not been taking it) who presents with L hemiplegia, slurred speech. TOREYW 0915 on 08/02, later found down with slurred speech and L hemiplegia. She presented to [facility] and was seen on Telestroke, NIHSS 12. [...] 2b revascularization. INTERVAL HISTORY 08/05: [place] MBS tomorrow 08/06: Failed MBS. Increased lopressor. [...] as above -Rate controlled on metoprolol Dysphagia: -[employer] CONSULTANT following -NPO, DHT + TF -Failed MBS [...] Lindsay Acuna will likely be discharged to [facility] when medically ready Taran Traore, JASIEL-FENCE RIDER 08/06/2024 1:43 PM VITAL SIGNS Temp: [96.5 [...] for specific therapeutic recommendations, please see the song and dance performer report of the speech pathologist. Examination performed [...] Progress Note IDENTIFYING INFORMATION Lindsay Acuna MR# [id number] 08/05/2024 HISTORY OF PRESENT ILLNESS Lindsay Acuna is a 78 y.o. female with PMH significant for CAD, HTN, HLD, T2DM, Afib (on Eliquis, although patient reports she has not been taking it) who presents with L hemiplegia, slurred speech. LKW 0915 on 08/02, later found down with slurred speech and L hemiplegia. She presented to [facility] and was seen on Telestroke, NIHSS 12. [...] 2b revascularization. INTERVAL HISTORY 08/05: Transfer to [facility] tomorrow PHYSICAL EXAM Gen: awake, [...] as above -Rate controlled on metoprolol Dysphagia: -[employer] CONSULTANT following -NPO, DHT + TF -MBS tomorrow HLD, POA: -Atorvastatin 40 mg daily CAD, POA: -Hold ASA for 7 days due to ICH T2DM, POA: -SSI regular + accuchecks CKD Stage 3A, POA: Baseline Cr 1.3 -Avoid nephrotoxins, monitor Hypothyroidism, POA: -Continue home levothyroxine 75 mcg daily Disposition: Lindsay Acuna will likely be discharged to [facility] when medically ready Taran Traore APRN-FENCE RIDER 08/05/2024 2:19 PM VITAL SIGNS Temp: [97.8 [...] on the below outcome measures/assessment score(s), and [employer] IN[employer] CONSULTANT clinical judgment, discharge destination recommendation is: Pending [...] Impaired cognitive skills limiting saf ety/insight Acute [employer] CONSULTANT Outcomes Tracking Communicate basic wants and needs?: [...] oropharyngeal swallow function to most appropriately guide [employer] IN[employer] CONSULTANT plan of care. Of note, patient is [...] Currentdeficits impact her safety and independence. Ongoing [employer] IN[employer] CONSULTANT services are warranted. Subjective information: Awake, alert, [...] O2 Device: room air (08/05 0830) Acute [employer] CONSULTANT Goals Plan of Care by Queta Gardner, [employer] IN[employer] CONSULTANT at 08/05/2024 11:49 AM Version 1 of [...] oropharyngeal swallow function to most appropriately guide [employer] IN[employer] CONSULTANT plan of care Outcome: Ongoing Problem: [employer] IN[employer] CONSULTANT - Cognition Goal: Orientation Log - Patient [...] better assess deficits and most appropriately guide [employer] IN[employer] CONSULTANT plan of care Outcome: Met Tx: Noted [...] Plan for next session: 08/05: Good candidate; [facility] INFRASTRUCTURE CONSULTANT Outcomes: [employer] CONSULTANT Outcomes / Standardized Measures Score The Orientation [...] wrist restraints, RN aware Needs in reach. [employer] CONSULTANT Evaluation and Treatment Time Speech Therapy - Individual 44067: 8 Swallowing Dysfunction Treatment 47683: 9 Upon discontinuation of Acute Care Speech Therapy Services or patient discharge from the hospital this note represents the current Speech Therapy Discharge Summary * Chela Hannon - 08/05/2024 10:37 AM EDT Placement Plan Expected Discharge Date: TBD Referred Level of Care: IPR Barriers: medical stability, bed availability Current Referrals and Status 1. [facility]- sent; denied (Patient is OON) 2. [facility]- sent 3. [facility]- sent 4. [facility]- sent 5. [facility]- sent 6. [facility] GOVERNMENT CLERK met with Patient and Spouse at bedside to discuss discharge planning. Patient and spouse were agreeable to SW visit. GOVERNMENT CLERK discussed therapy recommendations with Spouse for Patient to go to [facility] at discharge. Spouse is agreeable to a referral being sent to [facility]. Referral sent. Spouse requested to speak to about assessing Patient for dementia. GOVERNMENT CLERK and bedside RN encouragedSpouse to discuss with Patient's outpatient provider. Chela Snyder, Social Work Student Available by Secure Chat Cosigned by OWEN Keller at 08/05/2024 11:22 AM EDT * Savana Leung, RD - 08/05/2024 10:10 AM EDT NUTRITION ASSESSMENT Nutrition Recommendations and Plan of Care: 1. Diet: NPO. Advancement per team/[employer] IN[employer] CONSULTANT recommendation 2. Ordered TF: Glucerna 1.5 @ [...] time. Per team, pt failed bedside swallow. [employer] IN[employer] CONSULTANT consulted for swallow eval. Past History No [...] kg (172 lb) 06/26/24 78.9 kg (174 lb)-[facility] 05/31/24 79 kg (174 lb 2.6 oz)-[facility] 11/28/23 80.6 kg (177 lb 9.6 oz)-[facility] 09/29/23 84 kg (185 lb)-[facility] Pt without significant weight change [employer]. Tmax: 97.8*F BP: (!) 173/94 Pulse (Heart [...] proximal second portion of the duodenum. BM: [employer]AD Urine: 725mL Skin: Raghu Score: 13 Active Wounds: Wound Sheath Site 08/02/24 1500 Right Radial (3) Wound Abrasion 08/02/24 2109 Left;Upper Face (3) Edema- None Estimated Nutrition Needs: Based on IBW (61.4kg) Estimated Kcals Needs: 1961-4129 kcals (25-30kcals/kg) Estimated Pro Needs: 74-92g Pro (1.2-1.5g/kg) Estimated Fluid Needs: Per MD Nutrition Focused Physical Exam Completed?: completed Subcutaneous Fat Loss: Orbital Region (Orbital Fat Pads): WDL Cheek Region (Buccal Fat Pads): WDL Upper Arm Region (Triceps): WDL Thoracic and Lumbar Region (Ribs, Lower Back, Midaxillary Line): WDL Muscle Wasting: Rastafari Region (Temporalis Muscle): deferred (lac over eyebrow) [...] (AAIM) criteria (2012) ELVIRA Ho, RD, LD, [facility] Pager: [phone] * Rashad Rg MD - 08/05/2024 9:42 [...] critical care time 31min. * Shanna Russ, MOTORCYCLE MECHANIC APPRENTICE-FENCE RIDER - 08/05/2024 7:20 AM EDT NEUROCRITICAL CARE [...] Visual richards intact to confrontation. PERRL. 3mm tool trouble shooter III, IV and : EOMI. No nystagmus. [...] % (08/05 599) O2 Device: room air (03/24 0600) Flow (L/min): 4 (08/05 1999) - Goal SpO2 >92%; wean FiO2 as tolerated - HOB > 30 degrees, aggressive pulm edema, OOB as toleratd - RPF2HCG, encourage pulmonary toileting Cards: Essential HTN HLD [...] TUBE FEEDING with meds (per DHT) - [place] Swallow Screening Result: failed=NPO Bowel regimen: - Last Bowel Movement: (prior to admission) - Senna 17.2 mg Q12H, miralax BID, suppository PRN Stress ulcer prophylaxis: - none Dysphagia - DHT placed - MI[employer] INFRASTRUCTURE CONSULTANT following; NPO continue following, on TF - [...] not indicated DVT: subcutaneous heparin [x] Lines Eugene: n/a Gallegos: remove Rectal tube: n/a Enteral [...] the assigned neurocritical care provider (resident, fellow, SPECIALTY PLANT SUPERVISOR, orPA) or page/call the corresponding number below NCC1 (Beds 5988-7473): [place] # [phone], pager #[phone] NCC2 (Beds 0631-5471, 12 [address], and overflow): [place]ell #: [phone], pager #[phone] * Florinda Velasquez, PT - 08/04/2024 1:36 [...] noted Mobility Assessment: Supine to Sit Mobility [place] Level: Supine->Sit: moderate assist (50% patient effort) [...] EOB Transfer Assessment: Sit to Stand Transfer [place] Level: Sit->Stand: moderate assist (50% patient effort) Physical Assist: Sit->Stand: 2 person assist Assistive Device: Sit->Stand: gait belt, hand held assist Skilled Rationale: Positioning, Sequencing, Hand placement, Verbal cues Skilled Intervention/Details: Sit->Stand: x 1 from EOB Bed-Chair Transfer [place] Level: Bed<->Chair: moderate assist (50% patient effort) Physical Assist: Bed<->Chair: 2 person assist Assistive Device: Bed<->Chair: gait belt, hand held assist Skilled Rationale: Positioning, Sequencing, Hand placement, Verbal cues Skilled Intervention/Details: Bed<->Chair: x 2-3 steps from bed to chair Gait/Functional Mobility: Stairs: Outcome Score(s): CURRENT [facility] Basic Mobility Inpatient Short Form Turning [...] with a railin - Total Assistance CURRENT [facility] Mobility Raw Score: [address] [facility] Mobility Functional Limitation: 76.75% Impaired in [...] current Physical Therapy Discharge Summary. * Dona Zapatabuck OT - 08/04/2024 12:18 PM EDT Acute [...] Edema: Mobility Assessment: Supine to Sit Mobility [place] Level: Supine->Sit: moderate assist (50% patient effort) Physical Assist: Supine->Sit: 2 person assist Bed Features/Set-up: Supine->Sit: Head of bed elevated Skilled Rationale: Positioning, Hand placement, Verbal cues, Technique of activity Transfer Assessment: Sit to Stand Transfer [place] Level: Sit->Stand: moderate assist (50% patient effort) Physical Assist: Sit->Stand: 2 person assist Assistive Device: Sit->Stand: gait belt, hand held assist Skilled Rationale: Positioning, Hand placement, Verbal cues, Technique of activity Stand to Sit Transfer [place] Level: Stand->Sit: moderate assist (50% patient effort) Physical Assist: Stand->Sit: 2 person assist Assistive Device: Stand->Sit: hand held assist Skilled Rationale: Positioning, Hand placement, Verbal cues, Arm in arm, Controlled descent for sitting Bed-Chair Transfer [place] Level: Bed<->Chair: moderate assist (50% patient effort) Physical Assist: Bed<->Chair: 2 person assist Assistive Device: Bed<->Chair: gait belt, hand held assist Skilled Rationale: Arm in arm, Patellar block, Technique of activity Skilled Intervention/Details: Bed<->Chair: LLE weakness/blocking of patella with transfer, pivot to right Functional Mobility: Outcome Score(s): CURRENT [facility] Daily Activity Inpatient Short Form Putting on/Taking Off Lower Body Clothin - A Lot of Assistance Bathin - A Lot of Assistance Toiletin - Total Assistance Putting on/Taking Off Upper Body Clothin - A Lot of Assistance Groomin - A Little Assistance Eatin - Total Assistance CURRENT [facility] Activity Raw Score: 11 CURRENT -[facility] Activity Functional Limitation/Modifier: 70.42% Currently [...] assessment and plan as documented by the SPECIALTY PLANT SUPERVISOR with my changes/additions added. Patient is a [...] ICH x 7 days - Statin - PT/OT/[employer] IN[employer] CONSULTANT evaluation Pulmonary: No acute issues, appears to [...] and other supportive care as per the SPECIALTY PLANT SUPERVISOR note from the same day This patient [...] to the patient today independent of[facility] emergencycedures, teaching and other care providers. Management of the above was performed. My time managing this critically ill patient included review of interval history, laboratories, radiology and cons ultation reports; performing a physical examination; discussing the patient with the multi-disciplinary team and managing life sustaining therapies to prevent imminent clinical deterioration. Richard Mejia MD Neurocritical Care Attending * Balbir Mccoy, MOTORCYCLE MECHANIC APPRENTICE-FENCE RIDER - 08/04/2024 7:44 AM EDT NEUROCRITICAL CARE [...] Visual richards intact to confrontation. PERRL. 3mm tool trouble shooter III, IV and : EOMI. No nystagmus. [...] SpO2 >92%; wean FiO2 as tolerated - [id number], encourage pulmonary toileting Cards: Essential HTN HLD [...] TUBE FEEDING with meds (per DHT) - [facility] Swallow Screening Result: failed=NPO Bowel regimen: - Last Bowel Movement: (prior to admission) - Senna 17.2 mg Q12H, miralax at bedtime Stress ulcer prophylaxis: - none Dysphagia - DHT placed - MICROSOFT INFRASTRUCTURE CONSULTANT following - Tube feed: Vital AF with [...] Heme/Onc: No Current Issues Recent Labs 08/02/24 18408/03/24108/04/24 0003 WBC 8.16 8.43 11.41* RBC 4.76 [...] not indicated DVT: subcutaneous heparin [x] Lines Eugene: n/a Gallegos: inserted 08/02, (indication: strict I&O [...] the assigned neurocritical care provider (resident, fellow, SPECIALTY PLANT SUPERVISOR, orPA) or page/call the corresponding number below NCC1 (Beds 9916-3410): Pernell # [phone], pager #[phone] NCC2 (Beds 8178-1502, 12 Nando, and overflow): Pernell #: [phone], pager #[phone] * Rafael Garcia MD - 08/03/2024 2:16 PM EDT NEUROVASCULAR Consult Daily Progress Note IDENTIFYING INFORMATION Lindsay Acuna MR# [id number] 08/03/2024 HISTORY OF PRESENT ILLNESS Lindsay Acuna is a 78 y.o. female with PMH significant for CAD, HTN, HLD, T2DM, Afib (on Eliquis, although patient reports she has not been taking it) who presents with L hemiplegia, slurred speech. She was last seen normal by her at 0915, later found down with slurred speech and L hemiplegia. She presented to [facility] and was seen on Telestroke, NIHSS 12. [...] speech and L hemiplegia. She presented to [facility] and was seen on Telestroke, NIHSS 12. [...] workup. Delbert Kasper MD * Nohelia Oconnell, MICROSOFT INFRASTRUCTURE CONSULTANT - 08/03/2024 12:09 PM EDT Acute Care MI[employer]OS[employer]FT INFRASTRUCTURE CONSULTANT Speech/Language/Cognitive Evaluation Best mode of Communication: spoken language (regular speech) Discharge Recommendations: Based on the below outcome measures/assessment score(s) and MICROSOFT INFRASTRUCTURE CONSULTANT clinicaljudgment, discharge destination recommendation is: (Skilled speech therapy services at next level of care) Barriers to discharge home: Cognitive impairments that impact safety and independence Supporting factors for discharge setting: Impaired swallow function limiting nutritional status andsafety with oral intake Acute MICROSOFT INFRASTRUCTURE CONSULTANT Outcomes Tracking Communicate basic wants and needs?: [...] speech and L hemiplegia. She presented to [facility] and was seen on Telestroke,NIHSS 12. CTH [...] 0 Asthenia (A): 0 Strain (S): 0 MICROSOFT INFRASTRUCTURE CONSULTANT Outcomes / Standardized Measures Score The Orientation [...] unable to respond. Total Score: 12 Acute MICROSOFT INFRASTRUCTURE CONSULTANT Goals Plan of Care by RIKI Hayes at 08/03/2024 11:25 AM Version 1 of 1 Problem: Dysphagia Goal: Ongoing Assessment - Patient will participate in ongoing assessment by accepting various PO consistency trials with appropriate participation/oral acceptance and no significant respiratory complications to determine readiness for diet advancement Outcome: Ongoing Problem: MICROSOFT INFRASTRUCTURE CONSULTANT - Cognition Goal: Orientation Log - Patient [...] better assess deficits and most appropriately guide MICROSOFT INFRASTRUCTURE CONSULTANT plan of care Outcome: Ongoing Speech Language [...] of session: bed alarm Needs in reach. MICROSOFT INFRASTRUCTURE CONSULTANT Evaluation and Treatment Time Speech Eval - Sound Production W/Lang Comp and Exp 73897: 11 Swallowing Eval 28844: 10 Upon discontinuation of Acute Care Speech [...] on the below outcome measures/assessment score(s) and MICROSOFT INFRASTRUCTURE CONSULTANT clinicaljudgment, discharge destination recommendation is: Deferred to PT/OT recomendations related to mobility Current therapy frequency recommendation in acute care: Swallow Therapy Frequency: 5 times a week Acute MICROSOFT INFRASTRUCTURE CONSULTANT Outcomes Tracking Communicate basic wants and needs?: [...] speech and L hemiplegia. She presented to [facility] and was seen on Telestroke,NIHSS 12. 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 Mass effect with effacement of the right lateral ventricle and midline shift to the left. 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 Prior MICROSOFT INFRASTRUCTURE CONSULTANT history: No prior speech history per chart [...] and Liquids Trialed Modality Amount Ice Teaspoon, MICROSOFT INFRASTRUCTURE CONSULTANT-fed 3x Thin Teaspoon 3x Oral Phase Function [...] Patient presents with presumed pharyngeal phase impairments. [place] Swallow Screen: (administered by: RN) [place] Swallow Screening Screening Exclusion Criteria: none, continue with [place] Swallow Screening Cognitive Screen: Orientation: able to [...] Water Swallow Challenge : coughing/throat clearing-overt signs/symptoms [place] Swallow Screening Result: failed=NPO Voice and Swallow [...] Ok for ice chips with RN supervision. MICROSOFT INFRASTRUCTURE CONSULTANT will continue to follow for ongoing dysphagia management. Patient Education/Instruction Learners: Patient Education provided: Dysphagia recommendation risk: benefit analysis, Role of this discipline Teaching method: Verbal Education/Instruction Learner response: Needs review Learning preferences: Auditory Learning considerations: Cognition Plan for next session: 08/03: Good Prognosis, ongoing dysphagia management to determine readiness for diet advancement vs instrumental. Acute MICROSOFT INFRASTRUCTURE CONSULTANT Goals Plan of Care by RIKI Hayes at 08/03/2024 11:25 AM Version 1 of 1 Problem: Dysphagia Goal: Ongoing Assessment - Patient will participate in ongoing assessment by accepting various PO consistency trials with appropriate participation/oral acceptance and no significant respiratory complications to determine readiness for diet advancement Outcome: Ongoing Problem: MICROSOFT INFRASTRUCTURE CONSULTANT - Cognition Goal: Orientation Log - Patient [...] better assess deficits and most appropriately guide MICROSOFT INFRASTRUCTURE CONSULTANT plan of care Outcome: Ongoing Speech Language Pathologist: RIKI Hayes, BCS-S Board Certified Specialist in Swallowing and Swallowing Disorders Available via Pretty Padded Room Chat Time In: 1130 Time Out: 1151 Total Visit Time: 21 minutes Total Treatment Time (skilled, billable minutes): 21 minutes Non-billable assistance during session: none Assisted by during session: Patient's PPE used during patient interaction: gloves Patient location/status at end of session: bed with head of bed elevated Patient alarms at end of session: bed alarm Needs in reach. MICROSOFT INFRASTRUCTURE CONSULTANT Evaluation and Treatment Time Speech Eval - Sound Production W/Lang Comp and Exp 46085: 11 Swallowing Eval 84579: 10 Upon discontinuation of Acute Care Speech Therapy Services or patient discharge from the hospital this note represents the current Speech Therapy Discharge Summary * Richard Mejia MD - 08/03/2024 10:30 AM EDT I have independently seen and examined the patient on 08/03/24. I agree with the history, examination, assessment and plan as documented by the SPECIALTY PLANT SUPERVISOR with my changes/additions added. Patient is a [...] the setting of ICH - Statin - PT/OT/MICROSOFT INFRASTRUCTURE CONSULTANT evaluation Pulmonary: No acute issues, appears to [...] and other supportive care as per the SPECIALTY PLANT SUPERVISOR note from the same day This patient [...] care services to the [facility] today [facility], teaching and other care providers. Management of [...] with assistance from spouse Care Management Plan GOVERNMENT CLERK met with Patient and Spouse at bedside to complete Initial Assessment. They were agreeable to SW visit. Patient was lethargic though able to answer some short questions. Patient consented to Spouse assisting with assessment. Spouse/Patient report that Patient has never completed a HCPOA. They expressed interest, and GOVERNMENT CLERK will follow to complete document when Patient is more alert and oriented. Spouse reports himself and Patient live in a ranch-style home with strong supports from their community, including 2 neighbors that have assisted at this time. He noted that himself and Patient recently returned from a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 mellitus with hyperglycemia Type II or unspecified type diabetes mellitus without mention of complication, not stated as uncontrolled [facility] Narrative No data available for this section Tylercam[place] Tariqwn Reason for referral (narrative)* Outpatient Procedure (Routine) - Pending Review Specialty Diagnoses / Procedures Referred By Contac t Referred To [facility] Diagnoses Atrial fibrillation, unspecified type (HCC) Procedures ECHO ECHO TTHRC R-T 2D W/WOM-MODE COMPL SPEC&COLR D Kameron Caruso MD [address] [place] [address] [facility] [address] [place] [address] Referral ID Status Reason Start Date Expiration Date Visits Requested Visits Authorized [id number] Pending Review Auto-Generat ed Referral 05/31/2024 05/31/2025 1 1 * Outpatient Procedure (Routine) - New Request Specialty Diagnoses / Procedures Referred By Qiana almodovar Referred To [facility] Diagnoses Irregular heart beat Procedures ECG COMPLETE ECG ROUTINE ECG W/LEAST 12 LDS W/I&R Kameron Caruso MD [address] [place] [address] [facility] [address] [address] Referral ID Status Reason Start Date Expiration Date Visits Requested Visits Authorized [id number] New Request Auto-Generat ed Referral 05/31/2024 05/31/2025 1 1 [facility])No reason for referral information availableWKettering Health [facility] Work Phone: Reason for visit Narrative* Auth/Cert Specialty Diagnoses / Procedures Referred By Qiana almodovar Referred To Contact Diagnoses Acute ischemic right MCA stroke Cerebrovascular Accident (Level A Ishemic Stroke) Prema Rodgers MD [address] [place] [address] Phone: tel: fax: [facility] [address] [place] [address] Referral ID Status Reason Start Date Expiration Date Visits Re quested Visits Authorized [id number] 1 1 [facility] Summary Purpose Family History No Family History Records Found Relationship Condition Age at Onset Recorded Date/T monse mother Diabetes mellitus Unknown Hypertension Unknown Psychiatric disorder Unknown grandmother Malignant neoplasm Unknown sister Disorder of thyroid Unknown Advance Directives No Advanced Directives Records FoundDocuments on File Type Date Recorded Patient Pruner 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 Advance Directives and Living Will Power of Audio Recording Engineer Latest Code Status on File Code Status Date Activated Date Inactivated Comments Full Code 01/09/2019 10:16 AM Latest Code Status on File Code Status Date Activated Date Inactivated Comments Full Code 10/16/2019 9:16 AM Full Code 01/09/2019 10:16 AM 01/09/2019 2:23 PM Documents on File Type Date Recorded Patient Pruner 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 Advance Directive(s) 11/07/2018 6:45 AM Advance Directive(s) 09/29/2015 10:09 PM Advance Directive Response Recorded Date/ Time Living Will No August 02, 2024 12:46pm Do you have a Healthcare Power of Audio Recording Engineer? No August 02, 2024 12:46pm Date Activated [...] patient had a polyp identified by on {time:48816}. Biopsies {are/were w not:9034} taken. The patient's usual bowel pattern is {bowel pattern:67428}. Bowel movements {bowel changes:43083} . {abd pain:96460}. The patient has noted{bleeding with BM:41360}. The patient {does/do/not:81211} have a family history of colon polyps. The patient {does/do/not:09811} have a family history of colon cancer. [...] WORK September 10, 2024 5:0 0am [facility] October 02, 2024 9:29a m Chief Complaint [...] WORK October 01, 2024 5:00a m [facility] October 02, 2024 9:29a m LAB WORK October 08, 2024 5:00a m MONTHLY EXAM October 09, 2024 5:45p m [facility] LAB WORK October 15, 2024 5:0 0am [facility] LAB WORK October 22, 2024 5: 00am [facility] LAB WORK October 23, 2024 5: 00am [facility] LAB WORK October 29, 2024 5: 00am [...] WORK October 01, 2024 5:00a m [facility] October 02, 2024 9:29a m LAB WORK October 08, 2024 5:00a m MONTHLY EXAM October 09, 2024 5:45p m [facility] LAB WORK October 15, 2024 5:0 0am [facility] LAB WORK October 22, 2024 5: 00am [facility] LAB WORK October 23, 2024 5: 00am [facility] LAB WORK October 29, 2024 5: 00am NEW CONCERN October 30, 2024 6:00 pm [facility] LAB WORK November 12, 2024 5:0 0am [...] WORK October 01, 2024 5:00a m [facility]IB ([facility]) October 02, 2024 9:29a m LAB WORK October 08, 2024 5:00a m MONTHLY EXAM October 09, 2024 5:45p m [facility] LAB WORK October 15, 2024 5:0 0am [facility] LAB WORK October 22, 2024 5: 00am NEW CONCERN October 22, 2024 12:4 5pm [facility] LAB WORK October 23, 2024 5: 00am [facility] LAB WORK October 29, 2024 5: 00am NEW CONCERN October 30, 2024 6:00 pm [facility] LAB WORK November 12, 2024 5:0 0am [...] MONTHLY EXAM October 09, 2024 5:45p m [facility] LAB WORK October 15, 2024 5:0 0am [facility] LAB WORK October 22, 2024 5: 00am NEW CONCERN October 22, 2024 12:4 5pm [facility] LAB WORK October 23, 2024 5: 00am [facility] LAB WORK October 29, 2024 5: 00am FU VISIT October 29, 2024 7:15 pm NEW CONCERN October 30, 2024 6:00 pm [facility] LAB WORK November 12, 2024 5:0 0am Chief Complaint Admit Date LAB WORK September 10, 2024 5:0 0am ADMISSION EXAM September 10, 2024 12: 49pm ADMISSION EXAM September 11, 2024 3:0 8pm LAB WORK September 17, 2024 5:00am LABWORK September 24, 2024 5:00a m LAB WORK September 29, 2024 5:44p m LAB WORK October 01, 2024 5:00a m [facility]IB ([facility]) October 02, 2024 9:29a m LAB WORK October 08, 2024 5:00a m MONTHLY EXAM October 09, 2024 5:45p m [facility] LAB WORK October 15, 2024 5:0 0am [facility] LAB WORK October 22, 2024 5: 00am NEW CONCERN October 22, 2024 12:4 5pm [facility] LAB WORK October 23, 2024 5: 00am [facility] LAB WORK October 29, 2024 5: 00am FU VISIT October 29, 2024 7:15 pm NEW CONCERN October 30, 2024 6:00 pm [facility] LAB WORK November 05, 2024 5: 00am [facility] LAB WORK November 12, 2024 5:0 0am [facility] LAB WORK November 19, 2024 4:0 0am New Concern November 20, 2024 10:49 am LABWORK November 25, 2024 2:00 am [facility] LAB WORK November 26, 2024 5: 20am New Concern November 28, 2024 4:43 pm [facility] LAB WORK December 03, 2024 5: 00am Chief Complaint Admit Date LAB WORK September 10, 2024 5:0 0am ADMISSION EXAM September 10, 2024 12: 49pm ADMISSION EXAM September 11, 2024 3:0 8pm LAB WORK September 17, 2024 5:00am LABWORK September 24, 2024 5:00a m LAB WORK September 29, 2024 5:44p m LAB WORK October 01, 2024 5:00a m AFIB ([facility]) October 02, 2024 9:29a m LAB WORK October 08, 2024 5:00a m MONTHLY EXAM October 09, 2024 5:45p m [facility] LAB WORK October 15, 2024 5:0 0am [facility] LAB WORK October 22, 2024 5: 00am NEW CONCERN October 22, 2024 12:4 5pm [facility] LAB WORK October 23, 2024 5: 00am [facility] LAB WORK October 29, 2024 5: 00am FU VISIT October 29, 2024 7:15 pm NEW CONCERN October 30, 2024 6:00 pm [facility] LAB WORK November 05, 2024 5: 00am [facility] LAB WORK November 12, 2024 5:0 0am [facility] LAB WORK November 19, 2024 4:0 0am New Concern November 20, 2024 10:49 am LABWORK November 25, 2024 2:00 am [facility] LAB WORK November 26, 2024 5: 20am [facility] LAB WORK December 03, 2024 5: 00am Chief Complaint Admit Date LAB WORK September 10, 2024 5:0 0am ADMISSION EXAM September 10, 2024 12: 49pm ADMISSION EXAM September 11, 2024 3:0 8pm LAB WORK September 17, 2024 5:00am LABWORK September 24, 2024 5:00a m LAB WORK September 29, 2024 5:44p m LAB WORK October 01, 2024 5:00a m AFIB ([facility]) October 02, 2024 9:29a m LAB WORK October 08, 2024 5:00a m MONTHLY EXAM October 09, 2024 5:45p m [facility] LAB WORK October 15, 2024 5:0 0am [facility] LAB WORK October 22, 2024 5: 00am NEW CONCERN October 22, 2024 12:4 5pm [facility] LAB WORK October 23, 2024 5: 00am [facility] LAB WORK October 29, 2024 5: 00am FU VISIT October 29, 2024 7:15 pm NEW CONCERN October 30, 2024 6:00 pm [facility] LAB WORK November 05, 2024 5: 00am [facility] LAB WORK November 12, 2024 5:0 0am [facility] LAB WORK November 19, 2024 4:0 0am New Concern November 20, 2024 10:49 am LABWORK November 25, 2024 2:00 am [facility] LAB WORK November 26, 2024 5: 20am New Concern November 28, 2024 4:43 pm [facility] LAB WORK December 03, 2024 5: 00am [facility] LAB WORK December 10, 2024 6: 20am [facility] LAB WORK December 17, 2024 5 :00am [facility] LAB WORK December 24, 2024 5:00am [facility] LAB WORK December 31, 2024 4:00am MONTHLY EXAM December 31, 2024 12 :07pm Additional Source Comments INFORMATION SOURCE (unrecogn ized section and content) DATE CREATED AUTHOR 08/31/2018 [facility] ([place]) DATE CREATED AUTHOR AUTHOR'S ORGANIZ ATION 10/18/[address] [facility] DATE CREATED AUTHOR AUTHOR'S ORGANIZ ATION 08/04/2024 [facility] DATE CREATED AUTHOR AUTHOR'S ORGANIZ ATION 08/07/2024 [facility] DATE CREATED AUTHOR AUTHOR'S ORGANIZ ATION 09/01/2024 [facility] DATE CREATED AUTHOR AUTHOR'S ORGANIZ ATION 10/13/[address] [facility] DATE CREATED AUTHOR AUTHOR'S ORGANIZ ATION 11/08/2024 [facility] DATE CREATED AUTHOR AUTHOR'S ORGANIZ ATION 01/22/2025 [facility] Source Comments (unrecognize d section and content) In the event this informatio n is protected by the Federal Confidentiality of Alcohol and Drug Abuse Patient Records regulations: The Federal rules restrict any use of the information to criminally investigate or prosecute any alcohol or drug abuse patient.[facility] the event this information is protected by the Federal Confidentiality of Alcohol and Drug Abuse Patient Records regulations: The Federal rules restrict any use of the information to criminally investigate or prosecute any alcohol or drug abuse patient.[facility] Center[facility] the event this information is protected by the Federal Confidentiality of Alcohol and Drug Abuse Patient Records regulations: The Federal rules restrict any use of the information to criminally investigate or prosecute any alcohol or drug abuse patient.[facility] Center[facility] the event this information is protected by the Federal Confidentiality of Alcohol and Drug Abuse Patient Records regulations: The Federal rules restrict any use of the information to criminally investigate or prosecute any alcohol or drug abuse patient.[facility] Center[facility] the event this information is protected by the Federal Confidentiality of Alcohol and Drug Abuse Patient Records regulations: The Federal rules restrict any use of the information to criminally investigate or prosecute any alcohol or drug abuse patient.[facility] Center[facility] the event this information is protected by the Federal Confidentiality of Alcohol and Drug Abuse Patient Records regulations: The Federal rules restrict any use of the information to criminally investigate or prosecute any alcohol or drug abuse patient.[facility] Center[facility] the event this information is protected by the Federal Confidentiality of Alcohol and Drug Abuse Patient Records regulations: The Federal rules restrict any use of the information to criminally investigate or prosecute any alcohol or drug abuse patient.[facility] CenterIn the event this information is protected by the Federal Confidentiality of Alcohol and Drug Abuse Patient Records regulations: The Federal rules restrict any use of the information to criminally investigate or prosecute any alcohol or drug abuse patient.[facility] CenterIn the event this information is protected by the Federal Confidentiality of Alcohol and Drug Abuse Patient Records regulations: The Federal rules restrict any use of the information to criminally investigate or prosecute any alcohol or drug abuse patient.[facility] CenterIn the event this information is protected by the Federal Confidentiality of Alcohol and Drug Abuse Patient Records regulations: The Federal rules restrict any use of the information to criminally investigate or prosecute any alcohol or drug abuse patient.[facility] CenterIn the event this information is protected by the Federal Confidentiality of Alcohol and Drug Abuse Patient Records regulations: The Federal rules restrict any use of the information to criminally investigate or prosecute any alcohol or drug abuse patient.[facility] CenterIn the event this information is protected by the Federal Confidentiality of Alcohol and Drug Abuse Patient Records regulations: The Federal rules restrict any use of the information to criminally investigate or prosecute any alcohol or drug abuse patient.[facility] CenterIn the event this information is protected by the Federal Confidentiality of Alcohol and Drug Abuse Patient Records regulations: The Federal rules restrict any use of the information to criminally investigate or prosecute any alcohol or drug abuse patient.[facility] CenterIn the event this information is protected by the Federal Confidentiality of Alcohol and Drug Abuse Patient Records regulations: The Federal rules restrict any use of the information to criminally investigate or prosecute any alcohol or drug abuse patient.[facility] CenterIn the event this information is protected by the Federal Confidentiality of Alcohol and Drug Abuse Patient Records regulations: The Federal rules restrict any use of the information to criminally investigate or prosecute any alcohol or drug abuse patient.[facility] CenterIn the event this information is protected by the Federal Confidentiality of Alcohol and Drug Abuse Patient Records regulations: The Federal rules restrict any use of the information to criminally investigate or prosecute any alcohol or drug abuse patient.[facility] CenterIn the event this information is protected by the Federal Confidentiality of Alcohol and Drug Abuse Patient Records regulations: The Federal rules restrict any use of the information to criminally investigate or prosecute any alcohol or drug abuse patient.[facility] CenterIn the event this information is protected by the Federal Confidentiality of Alcohol and Drug Abuse Patient Records regulations: The Federal rules restrict any use of the information to criminally investigate or prosecute any alcohol or drug abuse patient.[facility] CenterIn the event this information is protected by the Federal Confidentiality of Alcohol and Drug Abuse Patient Records regulations: The Federal rules restrict any use of the information to criminally investigate or prosecute any alcohol or drug abuse patient.[facility] CenterIn the event this information is protected by the Federal Confidentiality of Alcohol and Drug Abuse Patient Records regulations: The Federal rules restrict any use of the information to criminally investigate or prosecute any alcohol or drug abuse patient.[facility] CenterIn the event this information is protected by the Federal Confidentiality of Alcohol and Drug Abuse Patient Records regulations: The Federal rules restrict any use of the information to criminally investigate or prosecute any alcohol or drug abuse patient.[facility] CenterIn the event this information is protected by the Federal Confidentiality of Alcohol and Drug Abuse Patient Records regulations: The Federal rules restrict any use of the information to criminally investigate or prosecute any alcohol or drug abuse patient.[facility] CenterIn the event this information is protected by the Federal Confidentiality of Alcohol and Drug Abuse Patient Records regulations: The Federal rules restrict any use of the information to criminally investigate or prosecute any alcohol or drug abuse patient.[facility] CenterIn the event this information is protected by the Federal Confidentiality of Alcohol and Drug Abuse Patient Records regulations: The Federal rules restrict any use of the information to criminally investigate or prosecute any alcohol or drug abuse patient.[facility] CenterIn the event this information is protected by the Federal Confidentiality of Alcohol and Drug Abuse Patient Records regulations: The Federal rules restrict any use of the information to criminally investigate or prosecute any alcohol or drug abuse patient.[facility] CenterIn the event this information is protected by the Federal Confidentiality of Alcohol and Drug Abuse Patient Records regulations: The Federal rules restrict any use of the information to criminally investigate or prosecute any alcohol or drug abuse patient.[facility] CenterIn the event this information is protected by the Federal Confidentiality of Alcohol and Drug Abuse Patient Records regulations: The Federal rules restrict any use of the information to criminally investigate or prosecute any alcohol or drug abuse patient.[facility] CenterIn the event this information is protected by the Federal Confidentiality of Alcohol and Drug Abuse Patient Records regulations: The Federal rules restrict any use of the information to criminally investigate or prosecute any alcohol or drug abuse patient.[facility] Reason for Visit (unrecogniz ed [...] Comments request for medication Reason Comments [facility] requesting verbal agree to f [facility] Teams (unrecognized sec tion and content) [employer] Relationship Specialty Start Date End Date Kameron Caruso MD [address] [place] [address] PCP - General Family Practice 09/21/15 [employer] Relationship Specialty Start Date End Date Kameron Caruso MD [address] [place] [address] PCP - General Family Practice 09/21/15 [employer] Relationship Specialty Start Date End Date Kameron Caruso MD [address] [place] [address] PCP - General Family Practice 09/21/15 [employer] Relationship Specialty Start Date End Date Kameron Caruso MD [address] [place] [address] PCP - General Family Practice 09/21/15 [employer] Relationship Specialty Start Date End Date Kameron Caruso MD [address] [place] [address] PCP - General Family Practice 09/21/15 [employer] Relationship Specialty Start Date End Date Kameron Caruso MD [address] [place] [address] PCP - General Family Practice 09/21/15 [employer] Relationship Specialty Start Date End Date Kameron Caruso MD [address] [place] [address] PCP - General Family Medicine 09/21/15 [employer] Relationship Specialty Start Date End Date Kameron Caruso MD [address] [place] [address] PCP - General Family Medicine 09/21/15 [employer] Relationship Specialty Start Date End Date Kameron Caruso MD [address] [place] [address] PCP - General Family Medicine 09/21/15 [employer] Relationship Specialty Start Date End Date Kameron Caruso MD [address] [place] [address] PCP - General Family Medicine 09/21/15 [employer] Relationship Specialty Start Date End Date Kameron Caruso MD [address] [place] [address] PCP - General Family Medicine 09/21/15 [employer] Relationship Specialty Start Date End Date Kameron Caruso MD [address] [place] [address] PCP - General Family Medicine 09/21/15 [employer] Relationship Specialty Start Date End Date Kameron Caruso MD [address] [place] [address] PCP - General Family Medicine 09/21/15 [employer] Relationship Specialty Start Date End Date Kameron Caruso MD [address] [place] [address] PCP - General Family Medicine 09/21/15 [employer] Relationship Specialty Start Date End Date Kameron Caruso MD [address] [place] [address] PCP - General Family Medicine 09/21/15 [employer] Relationship Specialty Start Date End Date Kameron Caruso MD [address] [place] [address] PCP - General Family Medicine 09/21/15 Emma Sotomayor APRN.[employer] [address] [place] [address] [facility] 04/21/24 Mj Glover APRN.[employer] [address] [place] [address] [facility] 04/30/24 [employer] Relationship Specialty Start Date End Date Kameron Caruso MD [address] [place] [address] PCP - General Family Medicine 09/21/15 Emma Sotomayor APRN.[employer] [address] [place] [address] [facility] 04/21/24 Mj Glover APRN.[employer] [address] [place] [address] [facility] 04/30/24 [employer] Relationship Specialty Start Date End Date Kameron Caruso MD [address] [place] [address] PCP - General Family Medicine 09/21/15 Emma Sotomayor APRN.[employer] [address] [place] [address] [facility] 04/21/24 Mj Glover APRN.[employer] [address] [place] [address] [facility] 04/30/24 [employer] Relationship Specialty Start Date End Date Kameron Caruso MD [address] [place] [address] PCP - General Family Medicine 09/21/15 Emma Sotomayor APRN.[employer] [address] [place] [address] [facility] 04/21/24 Mj Glover APRN.[employer] [address] [place] [address] [facility] 04/30/24 [employer] Relationship Specialty Start Date End Date Kameron Caruso MD [address] [place] [address] PCP - General Family Medicine 09/21/15 Emma Sotomayor APRN.[employer] [address] [place] [address] [facility] 04/21/24 Mj Glover APRN.[employer] [address] [place] [address] [facility] 04/30/24 [employer] Relationship Specialty Start Date End Date Kameron Caruso MD [address] [place] [address] PCP - General Family Medicine 09/21/15 Emma Sotomayor APRN.[employer] [address] [place], [place] [address] [phone] [facility] 04/[facility] Mj Glover APRN.[employer] [address] [place] [address] [facility] 04[facility] [employer] Relationship Specialty Start Date End Date Kameron Caruso MD [address] [place] [address] PCP - General Family Medicine 09/21/15 Emma Sotomayor APRN.[employer] [address] [place] [address] [facility] 04/[facility]/24 Mj Glover APRN.[employer] [address] [place] [address] [facility] 04/30/24 Team Status: Active Member Role Status Dates Dr. Kameron Caruso MD Primary Care Provider Active Team Status: Inactive Member Role Status Dates Dr. Kameron Caruso MD Primary Care Provider Active Start: August 02, 2024 End: August 02, 2024 Dr. Pieter Morgan MD Emergency Provider Active Start: August 02, 2024 End: August 02, 2024 [employer] Relationship Specialty Start Date End Date Kameron Caruso MD [address] [place] [address] PCP - General Family Medicine 08/03/24 [employer] Relationship Specialty Start Date End Date Kameron Caruso MD [address] [place], [place] [id number] PCP - General Family Medicine 09/21/15 Emma Sotomayor, MOTORCYCLE MECHANIC APPRENTICE.[employer] [address] [facility] [place] [place] [address] [facility] 04/21/24 Mj Glover, MOTORCYCLE MECHANIC APPRENTICE.[employer] [address] [facility] [place] [address] [facility] 04/30/24 Team Status: Inactive Member Role Status [...] 2024 End: September 11, 2024 Bret Snyder SPECIALTY PLANT SUPERVISOR, SPECIALTY PLANT SUPERVISOR-C Attending Provider Active Start: September 11, 2024 [...] End: October 09, 2024 Bret Snyder NP, [employer]TY PLANT SUPERVISOR-C Attending Provider Active Start: October 09, 2024 [...] End: October 30, 2024 Bret Snyder NP, SPECIALTY PLANT SUPERVISOR-C Attending Provider Active Start: October 30, 2024 [...] 2024 End: October 22, 2024 Bret Snyder SPECIALTY PLANT SUPERVISOR, SPECIALTY PLANT SUPERVISOR-C Attending Provider Active Start: October 22, 2024 [...] End: October 30, 2024 Bret Snyder NP SPECIALTY PLANT SUPERVISOR-C Attending Provider Active Start: October 30, 2024 [...] 2024 End: October 30, 2024 Bret Snyder SPECIALTY PLANT SUPERVISOR, SPECIALTY PLANT SUPERVISOR-C Attending Provider Active Start: October 30, 2024 [...] 2024 End: September 11, 2024 Bret Snyder SPECIALTY PLANT SUPERVISOR, SPECIALTY PLANT SUPERVISOR-C Attending Provider Active Start: September 11, 2024 End: September 11, 2024 Team Status: Active Member Role/Relationship Status Dates Dr. Kameron Caruso MD Primary Care Provider Active Start: September 17, 2024 Safia VARGAS MD Attending Provider Active Start: September 17, 2024 Team Status: Active Member Role/Relationship Status Dates Dr. Kameron Caruso MD Primary Care Provider Active Start: September 24, 2024 aSfia VARGAS MD Attending Provider Active Start: September [...] End: October 09, 2024 Bret Snyder NP, SPECIALTY PLANT SUPERVISOR-C Attending Provider Active Start: October 09, 2024 [...] 2024 End: October 22, 2024 Bret Snyder SPECIALTY PLANT SUPERVISOR, SPECIALTY PLANT SUPERVISOR-C Attending Provider Active Start: October 22, 2024 [...] 2024 End: November 20, 2024 Bret Snyder SPECIALTY PLANT SUPERVISOR, SPECIALTY PLANT SUPERVISOR-C Attending Provider Active Start: November 20, 2024 [...] 2024 End: November 28, 2024 Bret Snyder SPECIALTY PLANT SUPERVISOR, SPECIALTY PLANT SUPERVISOR-C Attending Provider Active Start: November 28, 2024 [...] 09 (Given - Provider: Shanna Palmer RN) 08 [...] 50% needed, contact pharmacy or obtain from [facility] cart ++ diphenhydrAMINE (BENADRYL) tablet [...] glucose is greater than 200mg/dl, then notify data warehouse manager. And BLOOD GLUCOSE (POC DEVICE) (CANCELED) [...] 50% needed, contact pharmacy or obtain from [facility] cart ++ And glucose (GLUTOSE) [...] at 1301, Until Specified, Who to Notify: Healthcare Administrative Assistant, For all Blood Glucose LESS THAN 80 mg/dl, notify Healthcare Administrative Assistant after treatment per Hypoglycemia in Non- Adults [...] BE BASED ON THE PRIMARY CLINICAL RECORDS. [facility]. provides no warranty or guarantee of the accuracy or completeness of information in this document.
[2025-01-28 07:59] LABS: Hematocrit 38.1 % (37-47); Hemoglobin 12.3 g/dL (12.0-15.0); Immature Granulocytes Count 0.030 X10^3/uL (0.0-0.0); Mean Corp Hgb Conc 32.3 g/dL (32-36); Mean Corpuscular Volume 90.7 fL (81-99); Mean Platelet Vol. 12.0 fl (6.2-12.0); NRBC Flagged by Analyzer 0 % (0-5); Platelet Count 261 K/mm3 (150-450); RBC Distribution Width CV 14.6 % (11.6-14.6); RBC Distribution Width SD 48.6 fl (35.1-43.9); Red Blood Count 4.20 M/mm3 (4.2-5.4); White Blood Count 8.4 K/mm3 (4.4-11.0)
[2025-01-28 08:11] LABS: Anion Gap 12 (5-15); BUN 13 mg/dL (4-19); BUN/Creat Ratio 20.0 RATIO (10-20); Calcium,Total 9.0 mg/dL (7.6-11.0); Carbon Dioxide 24.7 mmol/L (21.0-32.0); Chloride 103 mmol/L (98-108); Glucose 130 mg/dL (70-99); Potassium 3.4 mmol/L (3.3-5.1)
== END ==
LOC: OLS.WHLTCC 05:00
PROVIDERS: PCP Family Medicine; Visit Provider Internal Medicine
DX: I10 Essential (primary) hypertension (principal); I69.354 Hemiplegia and hemiparesis following cerebral infarction affecting left non-dominant side; I69.391 Dysphagia following cerebral infarction; E11.9 Type 2 diabetes mellitus without complications
CPT/HCPCS: 36415; 80048; 85025

== ENCOUNTER → 2025-02-04 05:07 | Outpatient (REF) | payer MEDICARE, SELFPAY ==
--- OUTSIDE RECORDS SUMMARY | 2025-02-04 06:20 | XMS RPT_ITS | CCD ---
Author Organization [facility] Care Team Providers Care Dental Practice Manager Name Role Phone KETTY DOWNS Attending [...] Kameron Caruso MD Primary Care Provider Светлана BAGGAGE INSPECTOR.Emma TUCKER Unavailable Saurav BAGGAGE INSPECTOR.Mj TUCKER Unavailable JUVENTINO ROGERS Attending Unavailable JUVENTINO ROGERS Admitting Unavailable CATA ALFRED Attending Unavailable CATA ALFRED Admitting Unavailable Dr. Kameron Caruso MD Primary Care Provider Dr. Pieter Morgan MD Emergency Provider Kameron Caruso MD Primary Care Provider Светлана BAGGAGE INSPECTOR.Emma TUCKER Unavailable Unavail able KAMERON CARUSO Referring [...] shital HUTTON DO, NANDO Consulting Unavailable SUDARSHAN ARTN-COLOR CONTROL SUPERVISOR, AMI Hwang Consulting Unavaila ari GIBSON PhD, [...] UnavailDr. Kameron Marquez MD Primary Care Provider [phone] Safia Ruelas MD Attending Provider UnavailDr. Safia Ulloa MD Attending Provider Bret Arciniega Attending Provider Safia Ruelas MD Referring Provider UnavailDr. Kameron Marquez MD Referring Provider [phone] Makayla LAWSON, Dr. Barker Attending Provider Oleghe [...] Care Unavailable [place], Kameron Primary Care Unavailable Pieter Morgan Attending Unavailable Oleghe OLS, Efewongbe Attending Unavailabl [...] e Oleghe OLS, Efewongbe Attending Unavailabl e Oleghe [...] e [place], Kameron Primary Care Unavailable [place] HERB DOCTOR, Bret Attending Unavailable [place], Kameron Primary Care Unavailable Oleghe OLS, Efewongbe Attending Unavailabl e Oleghe OLS, Efewongbe Referring Unavailabl e [place]brock, Kameron Primary Care Unavailable [place]brock, Kameron Primary Care Unavailable Elderbrock, Kamerno Referring Unavailable Makayla, Mj Attending Unavailable [place], Kameron Primary Care Unavailable [place] HERB DOCTOR, Bret Attending Unavailable [place], Kameron Primary Care Unavailable Oleghe, Efewongbe Attending Unavailable [place] HERB DOCTOR, Bret Attending Unavailable [place]brock, Kameron Primary Care Unavailable [place]ck, Kameron Primary Care Unavailable Oleghe, Efewongbe Attending Unavailable [place], Kameron Primary Care Unavailable [place] HERB DOCTOR, Bret Attending Unavailable [place], Kameron Primary Care Unavailable [place] HERB DOCTOR, Bret Attending Unavailable Oleghe, Efewongbe Attending Unavailable [place], Kameron Primary Care Unavailable [place] HERB DOCTOR, Bret Attending Unavailable [place], Kameron Primary Care Unavailable Oleghe OLS, Efewongbe Attending Unavailabl e [place]ck, Kameron Primary Care Unavailable Oleghe OLS, Efewongbe Attending Unavailabl e [place], Kameron Primary Care Unavailable Allergies Allergy Classification Reported Allergen(s) Allergy Type Date of Onset Reaction(s) Facility (2 sources) Sulfonamides (Antibiotic) Propensity to adverse reactions to drug 6 Other (See Comments) [place] (2 sources) Other Propensity to adverse reactions 6 Shortness Of Breath [place] (20 sources) Benzocaine; Translations: [BENZOCAINE] Drug Allergy 6 Rash [facility] [place] Work Phone: (20 sources) Cocaine; Translations: [COCAINE] Drug Allergy 9 Inverted T waves [facility] [place] Work Phone: (20 sources) Sulfonamides (Antibiotic); Translations: [SULFA (SULFONAMIDE ANTIBIOTICS)] Propensity to adverse reactions 6 Intolerance [facility] [place] Work Phone: (20 sources) Perfumes; Translations: [PERFUMES] Propensity to adverse reactions 6 Shortness of Breath [facility] [place] Work Phone: (9 sources) Sulfonamides (Antibiotic) Allergy to substance 5 Unknown [facility] (11 sources) perfume; Translations: [perfume] Allergy to substance 5 Shortness of breath [facility] (1 source) Cocaine; Translations: [cocaine nasal] Drug Allergy [facility] (1 source) Codeine; Translations: [codeine] Drug Allergy Pharyngeal swelling (finding) [facility] (1 source) Sulfonamide; Translations: [sulfa drugs] Drug allergy [facility] (1 source) Benzocaine Drug Allergy 5 [facility] (1 source) Cocaine Drug Allergy 5 [facility] (1 source) Sulfonamides (Antibiotic) Drug allergy (disorder) 5 [facility] Medications Current Medications Medication Drug [...] kidney disease, unspecified CKD stage, 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 Take 2 capsules by m outh once daily sennosides, [facility] 8.6 mg oral tablet (2 sources) Start: 08-09-2024 End: 08-15-2024 Start: 08-04-2024 End: 08-09-2024 triamcinolone acetonide 0.15795 mg/mg topical ointment (3 sources) Corticosteroid Start: [...] glucose is greater than 200mg/dl, then notify pump house engineer. [Order 2 End] [Order 3 Start] Name: [...] 1301, Until Specified, Who to Notify: Electrical Technician Instructor, For all Blood Glucose LESS THAN 80 mg/dl, notify Electrical Technician Instructor after treatment per Hypoglycemia in Non- Adults [...] Coronary arteriosclerosis; Translations: [Atherosclerotic heart disease of [place] coronary artery without angina pectoris] Onset: 5 [...] aftercare (9 sources) 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; Translations: [jail (current) use of anticoagulants] 08-02-2024 Episodic Other aftercare (1 source) jail (current) use of aspirin; Translations: [jail (current) use of aspirin] Onset: 5 Episodic Other aftercare (1 source) jail (current) use of anticoagulants; Translations: [jail (current) use of anticoagulants] Onset: 5 Episodic Other aftercare (1 source) 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; Translations: [jail (current) use of oral hypoglycemic drugs] Onset: [...] sources) Scalp psoriasis; 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, 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 Other nervous system disorders (1 [...] Auto (Unsp spec) [#/Vol] 2.90 10*3/uL 0.83-4.51 [facility] Anion gap in Serum or Plasma Ordered By: Safia Ruelas on 01-07-2025 Anion gap [Moles/Vol] 12 mmol/L 5- [facility] Automated lymphocyte count a s percentage of total leukocytesOrdered By: Safia Ruelas on 01-07-2025 Lymphocytes/100 WBC Auto (Unsp spec) 36.3 % - [facility] BUN/creatinine ratioOrdered By: Safia Ruelas on 01-07-2025 Urea nitrogen/Creatinine [Mass ratio] 15.4 mg/mg 10- [facility] Basophil percentageOrdered B y: Safia Ruelas on 01-07-2025 Basophils/100 WBC (Bld) 0.6 % 0-1 [facility] Carbon dioxide, total [Moles /volume] in Central venous bloodOrdered By: Safia Ruelas on 01-07-2025 CO2 [Moles/Vol] 23.2 mmol/L 21.0-32.0 [facility] Chloride assayOrdered By: Balbir Ruelas on 01-07-2025 Chloride [Moles/Vol] 104 mmol/L 98-108 [facility] Eosinophil percentageOrdered By: Safia Ruelas on 01-07-2025 Eosinophils/100 WBC (Bld) 2.3 % 0-5 [facility] Erythrocyte distribution wid th ratioOrdered By: Safia Ruelas on 01-07-2025 Erythrocyte distribution width (RBC) [Ratio] 14.6 % 11.6-14.6 [facility] Erythrocyte distribution wid th standard deviationOrdered By: Safia Ruelas on 01-07-2025 Erythrocyte distribution width (RBC) [Ratio] 48.5 fl High 35.1-43.9 [facility] Glomerular filtration rate ( GFR) estimation/1.73 sq m using serum, plasma, or whole bOrdered By: Safia Ruelas on 01-07-2025 GFR/1.73 sq M.predicted among non-blacks MDRD (S/P/Bld) [Vol rate/Area] 86 mL/min/{1.73_m2} >60 [facility] Hematocrit Auto (Bld) [Volum e fraction]Ordered By: Safia Ruelas on 01-07-2025 Hematocrit (Bld) [Volume fraction] 36.6 % Low 37-47 [facility] Hemoglobin measurementOrdere d By: Safia Ruelas on 01-07-2025 Hemoglobin (Bld) [Mass/Vol] 11.9 g/dL Low 12.0-15.0 [facility] Immature granulocytes/100 WB C Auto (Bld)Ordered By: Safia Ruelas on 01-07-2025 Immature granulocytes/100 WBC (Bld) 0.300 % 0.0-0.9 [facility] MCV (mean corpuscular volume ) determinationOrdered By: Safia Ruelas on 01-07-2025 MCV (RBC) [Entitic vol] 90.6 fL 81-99 [facility] Mean corpuscular hemoglobin (MCH) determinationOrdered By: Safia Cheoquyen on 01-07-2025 MCH (RBC) [Entitic mass] 29.5 pg 27.0-32.0 [facility] Monocyte percentageOrdered B y: Safia Cheoquyen on 01-07-2025 Monocytes/100 WBC (Bld) 7.9 % 0-10 [facility] Neutrophil percentageOrdered By: Safia Cheoquyen on 01-07-2025 Neutrophils/100 WBC (Bld) 52.6 % 47-70 [facility] Platelet countOrdered By: Balbir sherry Cheoquyen on 01-07-2025 Platelets (Bld) [#/Vol] 263 10*3/uL 150-450 [facility] Potassium measurement (mass/ volume)Ordered By: Safia Griderbonimelanie on 01-07-2025 Potassium (Unsp spec) [Mass/Vol] 3.5 mmol/L 3.3-5.1 [facility] RBC Auto (Bld) [#/Vol]Ordere d By: Safia Cheoquyen on 01-07-2025 RBC (Bld) [#/Vol] 4.04 10*6/uL Low 4.2-5.4 [facility] Serum creatinine measurement (mass/volume)Ordered By: Safia Ruelas on 01-07-2025 Creatinine [Mass/Vol] 0.71 mg/dL 0.70-1.20 [facility] Serum glucose measurement (m ass/volume)Ordered By: Balbirsherry Ruelas on 01-07-2025 Glucose [Mass/Vol] 139 mg/dL High 70-99 [facility] Serum or plasma calcium dayna urement (mass/volume)Ordered By: Balbirjean mariedesireeskye Griderbonimelanie on 01-07-2025 Calcium [Mass/Vol] 8.5 mg/dL 7.6-11.0 [facility] Serum or plasma urea nitroge n measurement (mass/volume)Ordered By: Safia Griderbonimelanie on 01-07-2025 Urea nitrogen [Mass/Vol] 11 mg/dL 4- [facility] Sodium levelOrdered By: Leonides Ruelas on 01-07-2025 Sodium [Moles/Vol] 139 mmol/L 133-145 [facility] White blood cell (WBC) count Ordered By: Balbirjean mariejosé antonio Ruelas on 01-07-2025 WBC (Bld) [#/Vol] 8.0 10*3/uL 4.4-11.0 [facility] Absolute lymphocyte countOrd ered By: Leonidesjosé antonio Cheobonimelanie on 12-31-2024 Lymphocytes Auto (Unsp spec) [#/Vol] 2.27 10*3/uL 0.83-4.51 [facility] Anion gap in Serum or Plasma Ordered By: Safia Griderbonimelanie on 12-31-2024 Anion gap [Moles/Vol] 14 mmol/L 5-15 [facility] Automated lymphocyte count a s percentage of total leukocytesOrdered By: Leonidesjosé antonio Cheobonimelanie on 12-31-2024 Lymphocytes/100 WBC Auto (Unsp spec) 32.9 % 19-41 [facility] BUN/creatinine ratioOrdered By: Leonidesjosé antonio Cheobonimelanie on 12-31-2024 Urea nitrogen/Creatinine [Mass ratio] 15.0 mg/mg 10-20 [facility] Basophil percentageOrdered B y: Safia Cheobonimelanie on 12-31-2024 Basophils/100 WBC (Bld) 0.6 % 0-1 [facility] Carbon dioxide, total [Moles /volume] in Central venous bloodOrdered By: Balbirjean mariedesireeskye Griderbonimelanie on 12-31-2024 CO2 [Moles/Vol] 22.1 mmol/L 21.0-32.0 [facility] Chloride assayOrdered By: Balbir jean mariejosé antonio Griderbonimelanie on 12-31-2024 Chloride [Moles/Vol] 103 mmol/L 98-108 [facility] Eosinophil percentageOrdered By: Balbirjean mariejosé antonio Cheobonimelanie on 12-31-2024 Eosinophils/100 WBC (Bld) 3.2 % 0-5 [facility] Erythrocyte distribution wid th ratioOrdered By: Balbirjean mariejosé antonio Cheobonimelanie on 12-31-2024 Erythrocyte distribution width (RBC) [Ratio] 14.6 % 11.6-14.6 [facility] Erythrocyte distribution wid th standard deviationOrdered By: Safia Ruelas on 12-31-2024 Erythrocyte distribution width (RBC) [Ratio] 48.9 fl High 35.1-43.9 [facility] Glomerular filtration rate ( GFR) estimation/1.73 sq m using serum, plasma, or whole bOrdered By: Safia Ruelas on 12-31-2024 GFR/1.73 sq M.predicted among non-blacks MDRD (S/P/Bld) [Vol rate/Area] 88 mL/min/{1.73_m2} >60 [facility] Hematocrit Auto (Bld) [Volum e fraction]Ordered By: Safia Ruelas on 12-31-2024 Hematocrit (Bld) [Volume fraction] 36.8 % Low 37-47 [facility] Hemoglobin A1c percentageOrd ered By: Safia Ruelas on 12-31-2024 HbA1c (Bld) [Mass fraction] 6.5 % High <5.7 [facility] Hemoglobin measurementOrdere d By: Safia Ruelas on 12-31-2024 Hemoglobin (Bld) [Mass/Vol] 11.8 g/dL Low 12.0-15.0 [facility] Immature granulocytes/100 WB C Auto (Bld)Ordered By: Safia Ruelas on 12-31-2024 Immature granulocytes/100 WBC (Bld) 0.300 % 0.0-0.9 [facility] MCV (mean corpuscular volume ) determinationOrdered By: Safia Ruelas on 12-31-2024 MCV (RBC) [Entitic vol] 91.3 fL 81-99 [facility] Mean corpuscular hemoglobin (MCH) determinationOrdered By: Safia Ruelas on 12-31-2024 MCH (RBC) [Entitic mass] 29.3 pg 27.0-32.0 [facility] Monocyte percentageOrdered B y: Safia Ruelas on 12-31-2024 Monocytes/100 WBC (Bld) 9.4 % 0-10 [facility] Neutrophil percentageOrdered By: Safia Ruelas on 12-31-2024 Neutrophils/100 WBC (Bld) 53.6 % 47-70 [facility] Platelet countOrdered By: Balbir Ruelas on 12-31-2024 Platelets (Bld) [#/Vol] 232 10*3/uL 150-450 [facility] Potassium measurement (mass/ volume)Ordered By: Safia Ruelas on 12-31-2024 Potassium (Unsp spec) [Mass/Vol] 3.5 mmol/L 3.3-5.1 [facility] RBC Auto (Bld) [#/Vol]Ordere d By: Safia Ruelas on 12-31-2024 RBC (Bld) [#/Vol] 4.03 10*6/uL Low 4.2-5.4 [facility] Serum creatinine measurement (mass/volume)Ordered By: Safia Cheoquyen on 12-31-2024 Creatinine [Mass/Vol] 0.70 mg/dL 0.70-1.20 [facility] Serum glucose measurement (m ass/volume)Ordered By: Safia Cheoquyen on 12-31-2024 Glucose [Mass/Vol] 142 mg/dL High 70-99 [facility] Serum or plasma calcium dayna urement (mass/volume)Ordered By: Safia Ruelas on 12-31-2024 Calcium [Mass/Vol] 8.4 mg/dL 7.6-11.0 [facility] Serum or plasma urea nitroge n measurement (mass/volume)Ordered By: Safia Cheoquyen on 12-31-2024 Urea nitrogen [Mass/Vol] 10 mg/dL 4-19 [facility] Sodium levelOrdered By: Leonides Ruelas on 12-31-2024 Sodium [Moles/Vol] 139 mmol/L 133-145 [facility] White blood cell (WBC) count Ordered By: Safia Cheoquyen on 12-31-2024 WBC (Bld) [#/Vol] 6.9 10*3/uL 4.4-11.0 [facility] Absolute lymphocyte countOrd ered By: Safia Cheobonimelanie on 12-24-2024 Lymphocytes Auto (Unsp spec) [#/Vol] 2.54 10*3/uL 0.83-4.51 [facility] Anion gap in Serum or Plasma Ordered By: Safia Ruelas on 12-24-2024 Anion gap [Moles/Vol] 14 mmol/L 5-15 [facility] Automated lymphocyte count a s percentage of total leukocytesOrdered By: Safia Ruelas on 12-24-2024 Lymphocytes/100 WBC Auto (Unsp spec) 28.0 % 19-41 [facility] BUN/creatinine ratioOrdered By: Safia Griderbonimelanie on 12-24-2024 Urea nitrogen/Creatinine [Mass ratio] 18.4 mg/mg 10-20 [facility] Basophil percentageOrdered B y: Safia Griderbonimelanie on 12-24-2024 Basophils/100 WBC (Bld) 0.8 % 0-1 [facility] Carbon dioxide, total [Moles /volume] in Central venous bloodOrdered By: Safia Ruelas on 12-24-2024 CO2 [Moles/Vol] 22.1 mmol/L 21.0-32.0 [facility] Chloride assayOrdered By: Balbir jean mariejosé antonio Ruelas on 12-24-2024 Chloride [Moles/Vol] 101 mmol/L 98-108 [facility] Eosinophil percentageOrdered By: Safia Griderbonimelanie on 12-24-2024 Eosinophils/100 WBC (Bld) 2.6 % 0-5 [facility] Erythrocyte distribution wid th ratioOrdered By: Safia Ruelas on 12-24-2024 Erythrocyte distribution width (RBC) [Ratio] 14.4 % 11.6-14.6 [facility] Erythrocyte distribution wid th standard deviationOrdered By: jean mariemeyersvilleskye Ruelas on 12-24-2024 Erythrocyte distribution width (RBC) [Ratio] 48.8 fl High 35.1-43.9 [facility] Glomerular filtration rate ( GFR) estimation/1.73 sq m using serum, plasma, or whole bOrdered By: Safia Ruelas on 12-24-2024 GFR/1.73 sq M.predicted among non-blacks MDRD (S/P/Bld) [Vol rate/Area] 83 mL/min/{1.73_m2} >60 [facility] Hematocrit Auto (Bld) [Volum e fraction]Ordered By: Balbirjean mariedesireeskye Griderbonimelanie on 12-24-2024 Hematocrit (Bld) [Volume fraction] 37.9 % 37-47 [facility] Hemoglobin measurementOrdere d By: Safia Ruelas on 12-24-2024 Hemoglobin (Bld) [Mass/Vol] 12.2 g/dL 12.0-15.0 [facility] Immature granulocytes/100 WB C Auto (Bld)Ordered By: Balbirjean mariejosé antonio Cheobonimelanie on 12-24-2024 Immature granulocytes/100 WBC (Bld) 0.400 % 0.0-0.9 [facility] MCV (mean corpuscular volume ) determinationOrdered By: Balbirsherry Griderbonimelanie on 12-24-2024 MCV (RBC) [Entitic vol] 92.2 fL 81-99 [facility] Mean corpuscular hemoglobin (MCH) determinationOrdered By: Balbirjean mariedesireeskye Griderbonimelanie on 12-24-2024 MCH (RBC) [Entitic mass] 29.7 pg 27.0-32.0 [facility] Monocyte percentageOrdered B y: Safia Cheoquyen on 12-24-2024 Monocytes/100 WBC (Bld) 8.7 % 0-10 [facility] Neutrophil percentageOrdered By: Safia Ruelas on 12-24-2024 Neutrophils/100 WBC (Bld) 59.5 % 47-70 [facility] Platelet countOrdered By: Balbir sherry Cheobonimelanie on 12-24-2024 Platelets (Bld) [#/Vol] 256 10*3/uL 150-450 [facility] Potassium measurement (mass/ volume)Ordered By: Balbirjean mariejosé antonio Cheobonimelanie on 12-24-2024 Potassium (Unsp spec) [Mass/Vol] 3.4 mmol/L 3.3-5.1 [facility] RBC Auto (Bld) [#/Vol]Ordere d By: Safia Cheobonimelanie on 12-24-2024 RBC (Bld) [#/Vol] 4.11 10*6/uL Low 4.2-5.4 [facility] Serum creatinine measurement (mass/volume)Ordered By: Safia Ruelas on 12-24-2024 Creatinine [Mass/Vol] 0.73 mg/dL 0.70-1.20 [facility] Serum glucose measurement (m ass/volume)Ordered By: Safia Ruelas on 12-24-2024 Glucose [Mass/Vol] 142 mg/dL High 70-99 [facility] Serum or plasma calcium dayna urement (mass/volume)Ordered By: Safia Ruelas on 12-24-2024 Calcium [Mass/Vol] 9.1 mg/dL 7.6-11.0 [facility] Serum or plasma urea nitroge n measurement (mass/volume)Ordered By: Safia Ruelas on 12-24-2024 Urea nitrogen [Mass/Vol] 13 mg/dL 4-19 [facility] Sodium levelOrdered By: Leonides jiménezradha Jessenia on 12-24-2024 Sodium [Moles/Vol] 137 mmol/L 133-145 [facility] White blood cell (WBC) count Ordered By: Safia Ruelas on 12-24-2024 WBC (Bld) [#/Vol] 9.1 10*3/uL 4.4-11.0 [facility] Absolute lymphocyte countOrd ered By: Safia Ruelas on 12-17-2024 Lymphocytes Auto (Unsp spec) [#/Vol] 2.94 10*3/uL 0.83-4.51 [facility] Anion gap in Serum or Plasma Ordered By: Safia Ruelas on 12-17-2024 Anion gap [Moles/Vol] 15 mmol/L 5-15 [facility] Automated lymphocyte count a s percentage of total leukocytesOrdered By: Safia Ruelas on 12-17-2024 Lymphocytes/100 WBC Auto (Unsp spec) 30.5 % - [facility] BUN/creatinine ratioOrdered By: Safia Ruelas on 12-17-2024 Urea nitrogen/Creatinine [Mass ratio] 23.4 mg/mg High 10-20 [facility] Basophil percentageOrdered B y: Safia Ruelas on 12-17-2024 Basophils/100 WBC (Bld) 0.7 % 0-1 [facility] Carbon dioxide, total [Moles /volume] in Central venous bloodOrdered By: Safia Ruelas on 12-17-2024 CO2 [Moles/Vol] 22.1 mmol/L 21.0-32.0 [facility] Chloride assayOrdered By: Balbir Ruelas on 12-17-2024 Chloride [Moles/Vol] 102 mmol/L 98-108 [facility] Eosinophil percentageOrdered By: Safia Ruelas on 12-17-2024 Eosinophils/100 WBC (Bld) 2.3 % 0-5 [facility] Erythrocyte distribution wid th ratioOrdered By: Safia Ruelas on 12-17-2024 Erythrocyte distribution width (RBC) [Ratio] 14.1 % 11.6-14.6 [facility] Erythrocyte distribution wid th standard deviationOrdered By: Safia Ruelas on 12-17-2024 Erythrocyte distribution width (RBC) [Ratio] 47.3 fl High 35.1-43.9 [facility] Glomerular filtration rate ( GFR) estimation/1.73 sq m using serum, plasma, or whole bOrdered By: Safia Ruelas on 12-17-2024 GFR/1.73 sq M.predicted among non-blacks MDRD (S/P/Bld) [Vol rate/Area] 77 mL/min/{1.73_m2} >60 [facility] Hematocrit Auto (Bld) [Volum e fraction]Ordered By: Safia Ruelas on 12-17-2024 Hematocrit (Bld) [Volume fraction] 40.2 % 37-47 [facility] Hemoglobin measurementOrdere d By: Safia Ruelas on 12-17-2024 Hemoglobin (Bld) [Mass/Vol] 12.7 g/dL 12.0-15.0 [facility] Immature granulocytes/100 WB C Auto (Bld)Ordered By: Safia Ruelas on 12-17-2024 Immature granulocytes/100 WBC (Bld) 0.400 % 0.0-0.9 [facility] MCV (mean corpuscular volume ) determinationOrdered By: Safia Ruelas on 12-17-2024 MCV (RBC) [Entitic vol] 92.2 fL 81-99 [facility] Mean corpuscular hemoglobin (MCH) determinationOrdered By: Safia Ruelas on 12-17-2024 MCH (RBC) [Entitic mass] 29.1 pg 27.0-32.0 [facility] Monocyte percentageOrdered B y: Safia Cheoquyen on 12-17-2024 Monocytes/100 WBC (Bld) 8.6 % 0-10 [facility] Neutrophil percentageOrdered By: Safia Cheoquyen on 12-17-2024 Neutrophils/100 WBC (Bld) 57.5 % 47-70 [facility] Platelet countOrdered By: Balbir powell Cheoquyen on 12-17-2024 Platelets (Bld) [#/Vol] 287 10*3/uL 150-450 [facility] Potassium measurement (mass/ volume)Ordered By: Balbirjean mariedesireesyke Griderbonimelanie on 12-17-2024 Potassium (Unsp spec) [Mass/Vol] 3.5 mmol/L 3.3-5.1 [facility] RBC Auto (Bld) [#/Vol]Ordere d By: Safia Ruelas on 12-17-2024 RBC (Bld) [#/Vol] 4.36 10*6/uL 4.2-5.4 [facility] Serum creatinine measurement (mass/volume)Ordered By: Balbirjean mariedesireeskye Griderbonimelanie on 12-17-2024 Creatinine [Mass/Vol] 0.78 mg/dL 0.70-1.20 [facility] Serum glucose measurement (m ass/volume)Ordered By: Balbirjean mariedesireeskye Gridrebonimelanie on 12-17-2024 Glucose [Mass/Vol] 125 mg/dL High 70-99 [facility] Serum or plasma calcium dayna urement (mass/volume)Ordered By: Bandarskye Griderbonimelanie on 12-17-2024 Calcium [Mass/Vol] 9.2 mg/dL 7.6-11.0 [facility] Serum or plasma urea nitroge n measurement (mass/volume)Ordered By: [place]e Griderbonimelanie on 12-17-2024 Urea nitrogen [Mass/Vol] 18 mg/dL 4-19 [facility] Sodium levelOrdered By: Leonides chou Cheobonimelanie on 12-17-2024 Sodium [Moles/Vol] 139 mmol/L 133-145 [facility] White blood cell (WBC) count Ordered By: Balbirjean mariejosé antonio Cheobonimelanie on 12-17-2024 WBC (Bld) [#/Vol] 9.6 10*3/uL 4.4-11.0 [facility] Absolute lymphocyte countOrd ered By: Leonidesjosé antonio Cheobonimelanie on 12-10-2024 Lymphocytes Auto (Unsp spec) [#/Vol] 2.59 10*3/uL 0.83-4.51 [facility] Anion gap in Serum or Plasma Ordered By: Safia Griderbonimelanie on 12-10-2024 Anion gap [Moles/Vol] 15 mmol/L 5-15 [facility] Automated lymphocyte count a s percentage of total leukocytesOrdered By: Safia Griderbonimelanie on 12-10-2024 Lymphocytes/100 WBC Auto (Unsp spec) 30.2 % 19-41 [facility] BUN/creatinine ratioOrdered By: Safia Griderbonimelanie on 12-10-2024 Urea nitrogen/Creatinine [Mass ratio] 25.6 mg/mg High 10-20 [facility] Basophil percentageOrdered B y: Balbirjean mariedesireeskye Griderquyen on 12-10-2024 Basophils/100 WBC (Bld) 0.9 % 0-1 [facility] Carbon dioxide, total [Moles /volume] in Central venous bloodOrdered By: Safia Griderbonimelanie on 12-10-2024 CO2 [Moles/Vol] 21.7 mmol/L 21.0-32.0 [facility] Chloride assayOrdered By: Balbir jean mariejosé antonio Griderbonimelanie on 12-10-2024 Chloride [Moles/Vol] 101 mmol/L 98-108 [facility] Eosinophil percentageOrdered By: Balbirsherry Griderbonimelanie on 12-10-2024 Eosinophils/100 WBC (Bld) 1.9 % 0-5 [facility] Erythrocyte distribution wid th ratioOrdered By: Safia Griderbonimelanie on 12-10-2024 Erythrocyte distribution width (RBC) [Ratio] 13.7 % 11.6-14.6 [facility] Erythrocyte distribution wid th standard deviationOrdered By: Safia Ruelas on 12-10-2024 Erythrocyte distribution width (RBC) [Ratio] 46.8 fl High 35.1-43.9 [facility] Glomerular filtration rate ( GFR) estimation/1.73 sq m using serum, plasma, or whole bOrdered By: Safia Ruelas on 12-10-2024 GFR/1.73 sq M.predicted among non-blacks MDRD (S/P/Bld) [Vol rate/Area] 72 mL/min/{1.73_m2} >60 [facility] Hematocrit Auto (Bld) [Volum e fraction]Ordered By: Safia Ruelas on 12-10-2024 Hematocrit (Bld) [Volume fraction] 38.8 % 37-47 [facility] Hemoglobin measurementOrdere d By: Safia Ruelas on 12-10-2024 Hemoglobin (Bld) [Mass/Vol] 12.3 g/dL 12.0-15.0 [facility] Immature granulocytes/100 WB C Auto (Bld)Ordered By: Safia Ruelas on 12-10-2024 Immature granulocytes/100 WBC (Bld) 0.500 % 0.0-0.9 [facility] MCV (mean corpuscular volume ) determinationOrdered By: Safia Ruelas on 12-10-2024 MCV (RBC) [Entitic vol] 93.3 fL 81-99 [facility] Mean corpuscular hemoglobin (MCH) determinationOrdered By: Safia Ruelas on 12-10-2024 MCH (RBC) [Entitic mass] 29.6 pg 27.0-32.0 [facility] Monocyte percentageOrdered B y: Safia Ruelas on 12-10-2024 Monocytes/100 WBC (Bld) 8.2 % 0-10 [facility] Neutrophil percentageOrdered By: Safia Ruelas on 12-10-2024 Neutrophils/100 WBC (Bld) 58.3 % 47-70 [facility] Platelet countOrdered By: Balbir Ruelas on 12-10-2024 Platelets (Bld) [#/Vol] 247 10*3/uL 150-450 [facility] Potassium measurement (mass/ volume)Ordered By: Safia Ruelas on 12-10-2024 Potassium (Unsp spec) [Mass/Vol] 3.8 mmol/L 3.3-5.1 [facility] RBC Auto (Bld) [#/Vol]Ordere d By: Safia Ruelas on 12-10-2024 RBC (Bld) [#/Vol] 4.16 10*6/uL Low 4.2-5.4 [facility] Serum creatinine measurement (mass/volume)Ordered By: Safia Ruelas on 12-10-2024 Creatinine [Mass/Vol] 0.82 mg/dL 0.70-1.20 [facility] Serum glucose measurement (m ass/volume)Ordered By: Safia Ruelas on 12-10-2024 Glucose [Mass/Vol] 149 mg/dL High 70-99 [facility] Serum or plasma calcium dayna urement (mass/volume)Ordered By: Safia Ruelas on 12-10-2024 Calcium [Mass/Vol] 9.1 mg/dL 7.6-11.0 [facility] Serum or plasma urea nitroge n measurement (mass/volume)Ordered By: Safia Ruelas on 12-10-2024 Urea nitrogen [Mass/Vol] 21 mg/dL High 4-19 [facility] Sodium levelOrdered By: Leonides jiménezradha Jessenia on 12-10-2024 Sodium [Moles/Vol] 137 mmol/L 133-145 [facility] White blood cell (WBC) count Ordered By: Safia Ruelas on 12-10-2024 WBC (Bld) [#/Vol] 8.6 10*3/uL 4.4-11.0 [facility] Absolute lymphocyte countOrd ered By: Safia Ruelas on 12-03-2024 Lymphocytes Auto (Unsp spec) [#/Vol] 2.81 10*3/uL 0.83-4.51 [facility] Anion gap in Serum or Plasma Ordered By: Safia Ruelas on 12-03-2024 Anion gap [Moles/Vol] 14 mmol/L 5-15 [facility] Automated lymphocyte count a s percentage of total leukocytesOrdered By: Safia Ruelas on 12-03-2024 Lymphocytes/100 WBC Auto (Unsp spec) 28.3 % 19-41 [facility] BUN/creatinine ratioOrdered By: Safia Ruelas on 12-03-2024 Urea nitrogen/Creatinine [Mass ratio] 28.4 mg/mg High 10-20 [facility] Basophil percentageOrdered B y: Safia Ruelas on 12-03-2024 Basophils/100 WBC (Bld) 0.6 % 0-1 [facility] Carbon dioxide, total [Moles /volume] in Central venous bloodOrdered By: Safia Ruelas on 12-03-2024 CO2 [Moles/Vol] 23.3 mmol/L 21.0-32.0 [facility] Chloride assayOrdered By: Balbir Ruelas on 12-03-2024 Chloride [Moles/Vol] 102 mmol/L 98-108 [facility] Eosinophil percentageOrdered By: Safia Ruelas on 12-03-2024 Eosinophils/100 WBC (Bld) 1.5 % 0-5 [facility] Erythrocyte distribution wid th ratioOrdered By: Safia Ruelas on 12-03-2024 Erythrocyte distribution width (RBC) [Ratio] 14.1 % 11.6-14.6 [facility] Erythrocyte distribution wid th standard deviationOrdered By: Safia Ruelas on 12-03-2024 Erythrocyte distribution width (RBC) [Ratio] 47.9 fl High 35.1-43.9 [facility] Glomerular filtration rate ( GFR) estimation/1.73 sq m using serum, plasma, or whole bOrdered By: Safia Ruelas on 12-03-2024 GFR/1.73 sq M.predicted among non-blacks MDRD (S/P/Bld) [Vol rate/Area] 65 mL/min/{1.73_m2} >60 [facility] Hematocrit Auto (Bld) [Volum e fraction]Ordered By: Safia Ruelas on 12-03-2024 Hematocrit (Bld) [Volume fraction] 40.0 % 37-47 [facility] Hemoglobin measurementOrdere d By: Safia Ruelas on 12-03-2024 Hemoglobin (Bld) [Mass/Vol] 12.9 g/dL 12.0-15.0 [facility] Immature granulocytes/100 WB C Auto (Bld)Ordered By: Balbirjean mariejosé antonio Cheobonimelanie on 12-03-2024 Immature granulocytes/100 WBC (Bld) 0.300 % 0.0-0.9 [facility] MCV (mean corpuscular volume ) determinationOrdered By: Balbirsherry Griderbonimelanie on 12-03-2024 MCV (RBC) [Entitic vol] 91.3 fL 81-99 [facility] Mean corpuscular hemoglobin (MCH) determinationOrdered By: Balbirsherry Griderbonimelanie on 12-03-2024 MCH (RBC) [Entitic mass] 29.5 pg 27.0-32.0 [facility] Monocyte percentageOrdered B y: Balbirjean mariedesireeskye Griderbonimelanie on 12-03-2024 Monocytes/100 WBC (Bld) 9.6 % 0-10 [facility] Neutrophil percentageOrdered By: jean mariejosé antonio Cheobonimelanie on 12-03-2024 Neutrophils/100 WBC (Bld) 59.7 % 47-70 [facility] Platelet countOrdered By: Balbir sherry Cheobonimelanie on 12-03-2024 Platelets (Bld) [#/Vol] 280 10*3/uL 150-450 [facility] Potassium measurement (mass/ volume)Ordered By: Balbirjean mariedesireeskye Griderbonimelanie on 12-03-2024 Potassium (Unsp spec) [Mass/Vol] 4.0 mmol/L 3.3-5.1 [facility] RBC Auto (Bld) [#/Vol]Ordere d By: Safia Cheobonimelanie on 12-03-2024 RBC (Bld) [#/Vol] 4.38 10*6/uL 4.2-5.4 [facility] Serum creatinine measurement (mass/volume)Ordered By: Safia Ruelas on 12-03-2024 Creatinine [Mass/Vol] 0.89 mg/dL 0.70-1.20 [facility] Serum glucose measurement (m ass/volume)Ordered By: Safia Ruelas on 12-03-2024 Glucose [Mass/Vol] 77 mg/dL 70-99 [facility] Serum or plasma calcium dayna urement (mass/volume)Ordered By: Safia Ruelas on 12-03-2024 Calcium [Mass/Vol] 9.6 mg/dL 7.6-11.0 [facility] Serum or plasma urea nitroge n measurement (mass/volume)Ordered By: Safia Ruelas on 12-03-2024 Urea nitrogen [Mass/Vol] 25 mg/dL High 4-19 [facility] Sodium levelOrdered By: Leonides Ruelas on 12-03-2024 Sodium [Moles/Vol] 139 mmol/L 133-145 [facility] TSH DL <= 0.005 mIU/L QnOrde red By: Safia Ruelas on 12-03-2024 TSH Qn 3.500 uIU/mL 0.300-4.200 [facility] White blood cell (WBC) count Ordered By: Safia Ruelas on 12-03-2024 WBC (Bld) [#/Vol] 9.9 10*3/uL 4.4-11.0 [facility] Absolute lymphocyte countOrd ered By: Safia Ruelas on 11-26-2024 Lymphocytes Auto (Unsp spec) [#/Vol] 2.99 10*3/uL 0.83-4.51 [facility] Absolute neutrophil countOrd ered By: Safia Ruelas on 11-26-2024 Neutrophils (Bld) [#/Vol] 4.2 10*3/uL 2.0-7.7 [facility] Anion gap in Serum or Plasma Ordered By: Safia Ruelas on 11-26-2024 Anion gap [Moles/Vol] 13 mmol/L - [facility] Automated lymphocyte count a s percentage of total leukocytesOrdered By: Safia Ruelas on 11-26-2024 Lymphocytes/100 WBC Auto (Unsp spec) 37.1 % 19-41 [facility] BUN/creatinine ratioOrdered By: Safia Ruelas on 11-26-2024 Urea nitrogen/Creatinine [Mass ratio] 24.3 mg/mg High 10-20 [facility] Basophil percentageOrdered B y: Safia Ruelas on 11-26-2024 Basophils/100 WBC (Bld) 0.7 % 0-1 [facility] Carbon dioxide, total [Moles /volume] in Central venous bloodOrdered By: Safia Ruelas on 11-26-2024 CO2 [Moles/Vol] 27.1 mmol/L 21.0-32.0 [facility] Chloride assayOrdered By: Balbir Ruelas on 11-26-2024 Chloride [Moles/Vol] 101 mmol/L 98-108 [facility] Eosinophil percentageOrdered By: Safia Ruelas on 11-26-2024 Eosinophils/100 WBC (Bld) 1.9 % 0-5 [facility] Erythrocyte distribution wid th ratioOrdered By: Safia Ruelas on 11-26-2024 Erythrocyte distribution width (RBC) [Ratio] 14.2 % 11.6-14.6 [facility] Erythrocyte distribution wid th standard deviationOrdered By: Safia Ruelas on 11-26-2024 Erythrocyte distribution width (RBC) [Ratio] 48.0 fl High 35.1-43.9 [facility] Glomerular filtration rate ( GFR) estimation/1.73 sq m using serum, plasma, or whole bOrdered By: Safia Ruelas on 11-26-2024 GFR/1.73 sq M.predicted among non-blacks MDRD (S/P/Bld) [Vol rate/Area] 63 mL/min/{1.73_m2} >60 [facility] Comment on above: mL/min/1.73m2 CKD-EP I Creatinine Equation (2020) Hematocrit Auto (Bld) [Volum e fraction]Ordered By: Bandarskye Griderbonimelanie on 11-26-2024 Hematocrit (Bld) [Volume fraction] 42.7 % 37-47 [facility] Hemoglobin measurementOrdere d By: Safia Cheobonimelanie on 11-26-2024 Hemoglobin (Bld) [Mass/Vol] 13.6 g/dL 12.0-15.0 [facility] Immature granulocytes/100 WB C Auto (Bld)Ordered By: Safia Ruelas on 11-26-2024 Immature granulocytes/100 WBC (Bld) 0.500 % 0.0-0.9 [facility] Comment on above: IG% - Immature Granu locytes (promyelocytes, myelocytes and metamyelocytes) > 1% indicates that a LEFT SHIFT is Present. MCV (mean corpuscular volume ) determinationOrdered By: Safia Ruelas on 11-26-2024 MCV (RBC) [Entitic vol] 92.0 fL 81-99 [facility] Mean corpuscular hemoglobin (MCH) determinationOrdered By: Safia Ruelas on 11-26-2024 MCH (RBC) [Entitic mass] 29.3 pg 27.0-32.0 [facility] Mean corpuscular hemoglobin concentration (MCHC) determinationOrdered By: Safia Ruelas on 11-26-2024 MCHC (RBC) [Mass/Vol] 31.9 g/dL Low 32-36 [facility] Mean platelet volume determi nationOrdered By: Safia Ruelas on 11-26-2024 Platelet mean volume (Bld) [Entitic vol] 11.5 fL 6.2-12.0 [facility] Monocyte percentageOrdered B y: Safia Ruelas on 11-26-2024 Monocytes/100 WBC (Bld) 7.7 % 0-10 [facility] Neutrophil percentageOrdered By: Safia Ruelas on 11-26-2024 Neutrophils/100 WBC (Bld) 52.1 % 47-70 [facility] Nucleated red blood cell per centageOrdered By: Safia Ruelas on 11-26-2024 Nucleated RBC/100 WBC (Bld) [Ratio] 0 % 0-5 [facility] Platelet countOrdered By: Balbir Ruelas on 11-26-2024 Platelets (Bld) [#/Vol] 283 10*3/uL 150-450 [facility] Potassium measurement (mass/ volume)Ordered By: Safia Ruelas on 11-26-2024 Potassium (Unsp spec) [Mass/Vol] 3.8 mmol/L 3.3-5.1 [facility] RBC Auto (Bld) [#/Vol]Ordere d By: Safia Ruelas on 11-26-2024 RBC (Bld) [#/Vol] 4.64 10*6/uL 4.2-5.4 [facility] Serum creatinine measurement (mass/volume)Ordered By: Balbirjean mariedesireeskye Griderbonimelanie on 11-26-2024 Creatinine [Mass/Vol] 0.92 mg/dL 0.70-1.20 [facility] Serum glucose measurement (m ass/volume)Ordered By: Balbirjean mariedesireeskye Griderbonimelanie on 11-26-2024 Glucose [Mass/Vol] 97 mg/dL 70-99 [facility] Serum or plasma calcium dayna urement (mass/volume)Ordered By: Balbirjean mariedesireeskye Griderbonimelanie on 11-26-2024 Calcium [Mass/Vol] 10.0 mg/dL 7.6-11.0 [facility] Serum or plasma urea nitroge n measurement (mass/volume)Ordered By: Balbirjean mariedesireeskye Griderbonimelanie on 11-26-2024 Urea nitrogen [Mass/Vol] 22 mg/dL High 4-19 [facility] Sodium levelOrdered By: Leonides Ruelas on 11-26-2024 Sodium [Moles/Vol] 140 mmol/L 133-145 [facility] White blood cell (WBC) count Ordered By: Balbirjean mariedesireeskye Griderbonimelanie on 11-26-2024 WBC (Bld) [#/Vol] 8.1 10*3/uL 4.4-11.0 [facility] Clostridium difficile detect ion by polymerase chain reactionOrdered By: Balbirsherry Ruelas on 11-25-2024 C. difficile DNA CHUCKY+probe Ql (Unsp spec) [facility] Absolute lymphocyte countOrd ered By: Bandarskye Griderbonimelanie on 11-19-2024 Lymphocytes Auto (Unsp spec) [#/Vol] 2.71 10*3/uL 0.83-4.51 [facility] Absolute neutrophil countOrd ered By: Balbirjean mariedesireeskye Griderbonimelanie on 11-19-2024 Neutrophils (Bld) [#/Vol] 5.2 10*3/uL 2.0-7.7 [facility] Anion gap in Serum or Plasma Ordered By: Safia Ruelas on 11-19-2024 Anion gap [Moles/Vol] 12 mmol/L 5-15 [facility] Automated lymphocyte count a s percentage of total leukocytesOrdered By: Safia Ruelas on 11-19-2024 Lymphocytes/100 WBC Auto (Unsp spec) 30.4 % 19-41 [facility] BUN/creatinine ratioOrdered By: Safia Ruelas on 11-19-2024 Urea nitrogen/Creatinine [Mass ratio] 25.0 mg/mg High 10-20 [facility] Basophil percentageOrdered B y: Safia Ruelas on 11-19-2024 Basophils/100 WBC (Bld) 0.6 % 0-1 [facility] Carbon dioxide, total [Moles /volume] in Central venous bloodOrdered By: Leonidesmeyersvilleskye Ruelas on 11-19-2024 CO2 [Moles/Vol] 25.5 mmol/L 21.0-32.0 [facility] Chloride assayOrdered By: Balbir Ruelas on 11-19-2024 Chloride [Moles/Vol] 101 mmol/L 98-108 [facility] Eosinophil percentageOrdered By: sherry Ruelas on 11-19-2024 Eosinophils/100 WBC (Bld) 2.1 % 0-5 [facility] Erythrocyte distribution wid th ratioOrdered By: Safia Ruelas on 11-19-2024 Erythrocyte distribution width (RBC) [Ratio] 13.9 % 11.6-14.6 [facility] Erythrocyte distribution wid th standard deviationOrdered By: sherry Ruelas on 11-19-2024 Erythrocyte distribution width (RBC) [Ratio] 46.6 fl High 35.1-43.9 [facility] Glomerular filtration rate ( GFR) estimation/1.73 sq m using serum, plasma, or whole bOrdered By: Safia Ruelas on 11-19-2024 GFR/1.73 sq M.predicted among non-blacks MDRD (S/P/Bld) [Vol rate/Area] 66 mL/min/{1.73_m2} >60 [facility] Comment on above: mL/min/1.73m2 CKD-EP I Creatinine Equation (2020) Hematocrit Auto (Bld) [Volum e fraction]Ordered By: Safia Ruelas on 11-19-2024 Hematocrit (Bld) [Volume fraction] 39.2 % 37-47 [facility] Hemoglobin measurementOrdere d By: Safia Ruelas on 11-19-2024 Hemoglobin (Bld) [Mass/Vol] 12.7 g/dL 12.0-15.0 [facility] Immature granulocytes/100 WB C Auto (Bld)Ordered By: Safia Ruelas on 11-19-2024 Immature granulocytes/100 WBC (Bld) 0.300 % 0.0-0.9 [facility] Comment on above: IG% - Immature Granu locytes (promyelocytes, myelocytes and metamyelocytes) > 1% indicates that a LEFT SHIFT is Present. MCV (mean corpuscular volume ) determinationOrdered By: Safia Ruelas on 11-19-2024 MCV (RBC) [Entitic vol] 91.4 fL 81-99 [facility] Mean corpuscular hemoglobin (MCH) determinationOrdered By: Leonidesmeyersvilleskye Ruelas on 11-19-2024 MCH (RBC) [Entitic mass] 29.6 pg 27.0-32.0 [facility] Mean corpuscular hemoglobin concentration (MCHC) determinationOrdered By: Safia Ruelas on 11-19-2024 MCHC (RBC) [Mass/Vol] 32.4 g/dL 32-36 [facility] Mean platelet volume determi nationOrdered By: Safia Ruelas on 11-19-2024 Platelet mean volume (Bld) [Entitic vol] 11.5 fL 6.2-12.0 [facility] Monocyte percentageOrdered B y: Safia Ruelas on 11-19-2024 Monocytes/100 WBC (Bld) 7.8 % 0-10 [facility] Neutrophil percentageOrdered By: Safia Ruelas on 11-19-2024 Neutrophils/100 WBC (Bld) 58.8 % 47-70 [facility] Nucleated red blood cell per centageOrdered By: Safia Ruelas on 11-19-2024 Nucleated RBC/100 WBC (Bld) [Ratio] 0 % 0-5 [facility] Platelet countOrdered By: Balbir Ruelas on 11-19-2024 Platelets (Bld) [#/Vol] 300 10*3/uL 150-450 [facility] Potassium measurement (mass/ volume)Ordered By: Safia Ruelas on 11-19-2024 Potassium (Unsp spec) [Mass/Vol] 3.8 mmol/L 3.3-5.1 [facility] RBC Auto (Bld) [#/Vol]Ordere d By: Safia Ruelas on 11-19-2024 RBC (Bld) [#/Vol] 4.29 10*6/uL 4.2-5.4 [facility] Serum creatinine measurement (mass/volume)Ordered By: Safia Ruelas on 11-19-2024 Creatinine [Mass/Vol] 0.88 mg/dL 0.70-1.20 [facility] Serum glucose measurement (m ass/volume)Ordered By: Safia Ruelas on 11-19-2024 Glucose [Mass/Vol] 136 mg/dL High 70-99 [facility] Serum or plasma calcium dayna urement (mass/volume)Ordered By: Safia Ruelas on 11-19-2024 Calcium [Mass/Vol] 9.6 mg/dL 7.6-11.0 [facility] Serum or plasma urea nitroge n measurement (mass/volume)Ordered By: Safia Ruelas on 11-19-2024 Urea nitrogen [Mass/Vol] 22 mg/dL High 4-19 [facility] Sodium levelOrdered By: Leonides Ruelas on 11-19-2024 Sodium [Moles/Vol] 139 mmol/L 133-145 [facility] White blood cell (WBC) count Ordered By: Safia Ruelas on 11-19-2024 WBC (Bld) [#/Vol] 8.9 10*3/uL 4.4-11.0 [facility] Absolute lymphocyte countOrd ered By: Safia Ruelas on 11-12-2024 Lymphocytes Auto (Unsp spec) [#/Vol] 2.49 10*3/uL 0.83-4.51 [facility] Absolute neutrophil countOrd ered By: Leonidesjosé antonio Westonmelanie on 11-12-2024 Neutrophils (Bld) [#/Vol] 4.2 10*3/uL 2.0-7.7 [facility] Anion gap in Serum or Plasma Ordered By: Safia Griderbonimelanie on 11-12-2024 Anion gap [Moles/Vol] 12 mmol/L 5-15 [facility] Automated lymphocyte count a s percentage of total leukocytesOrdered By: Safia Ruelas on 11-12-2024 Lymphocytes/100 WBC Auto (Unsp spec) 31.9 % 19-41 [facility] BUN/creatinine ratioOrdered By: Safia Ruelas on 11-12-2024 Urea nitrogen/Creatinine [Mass ratio] 28.1 mg/mg High 10-20 [facility] Basophil percentageOrdered B y: Leonidesdesireeskye Griderbonimelanie on 11-12-2024 Basophils/100 WBC (Bld) 0.6 % 0-1 [facility] Carbon dioxide, total [Moles /volume] in Central venous bloodOrdered By: Safia Griderbonimelanie on 11-12-2024 CO2 [Moles/Vol] 25.1 mmol/L 21.0-32.0 [facility] Chloride assayOrdered By: Balbir jean mariejosé antonio Ruelas on 11-12-2024 Chloride [Moles/Vol] 102 mmol/L 98-108 [facility] Eosinophil percentageOrdered By: sherry Griderbonimelanie on 11-12-2024 Eosinophils/100 WBC (Bld) 2.8 % 0-5 [facility] Erythrocyte distribution wid th ratioOrdered By: Safia Griderbonimelanie on 11-12-2024 Erythrocyte distribution width (RBC) [Ratio] 13.8 % 11.6-14.6 [facility] Erythrocyte distribution wid th standard deviationOrdered By: sherry Ruelas on 11-12-2024 Erythrocyte distribution width (RBC) [Ratio] 46.7 fl High 35.1-43.9 [facility] Glomerular filtration rate ( GFR) estimation/1.73 sq m using serum, plasma, or whole bOrdered By: Safia Ruelas on 11-12-2024 GFR/1.73 sq M.predicted among non-blacks MDRD (S/P/Bld) [Vol rate/Area] 70 mL/min/{1.73_m2} >60 [facility] Comment on above: mL/min/1.73m2 CKD-EP I Creatinine Equation (2020) Hematocrit Auto (Bld) [Volum e fraction]Ordered By: Safia Ruelas on 11-12-2024 Hematocrit (Bld) [Volume fraction] 40.6 % 37-47 [facility] Hemoglobin measurementOrdere d By: Safia Ruelas on 11-12-2024 Hemoglobin (Bld) [Mass/Vol] 13.2 g/dL 12.0-15.0 [facility] Immature granulocytes/100 WB C Auto (Bld)Ordered By: Safia Ruelas on 11-12-2024 Immature granulocytes/100 WBC (Bld) 0.400 % 0.0-0.9 [facility] Comment on above: IG% - Immature Granu locytes (promyelocytes, myelocytes and metamyelocytes) > 1% indicates that a LEFT SHIFT is Present. MCV (mean corpuscular volume ) determinationOrdered By: Safia Ruelas on 11-12-2024 MCV (RBC) [Entitic vol] 92.1 fL 81-99 [facility] Mean corpuscular hemoglobin (MCH) determinationOrdered By: Safia Ruelas on 11-12-2024 MCH (RBC) [Entitic mass] 29.9 pg 27.0-32.0 [facility] Mean corpuscular hemoglobin concentration (MCHC) determinationOrdered By: Safia Ruelas on 11-12-2024 MCHC (RBC) [Mass/Vol] 32.5 g/dL 32-36 [facility] Mean platelet volume determi nationOrdered By: Safia Ruelas on 11-12-2024 Platelet mean volume (Bld) [Entitic vol] 11.7 fL 6.2-12.0 [facility] Monocyte percentageOrdered B y: Safia Cheobonimelanie on 11-12-2024 Monocytes/100 WBC (Bld) 10.0 % 0-10 [facility] Neutrophil percentageOrdered By: Balbirjean mariejosé antonio Cheobonimelanie on 11-12-2024 Neutrophils/100 WBC (Bld) 54.3 % 47-70 [facility] Nucleated red blood cell per centageOrdered By: Leonidesdesireeskye Griderbonimelanie on 11-12-2024 Nucleated RBC/100 WBC (Bld) [Ratio] 0 % 0-5 [facility] Platelet countOrdered By: Balbir randallskye Ruelas on 11-12-2024 Platelets (Bld) [#/Vol] 304 10*3/uL 150-450 [facility] Potassium measurement (mass/ volume)Ordered By: Safia Ruelas on 11-12-2024 Potassium (Unsp spec) [Mass/Vol] 3.9 mmol/L 3.3-5.1 [facility] RBC Auto (Bld) [#/Vol]Ordere d By: Leonidesdesireeskye Ruelas on 11-12-2024 RBC (Bld) [#/Vol] 4.41 10*6/uL 4.2-5.4 [facility] Serum creatinine measurement (mass/volume)Ordered By: Safia Ruelas on 11-12-2024 Creatinine [Mass/Vol] 0.84 mg/dL 0.70-1.20 [facility] Serum glucose measurement (m ass/volume)Ordered By: Safia Ruelas on 11-12-2024 Glucose [Mass/Vol] 112 mg/dL High 70-99 [facility] Serum or plasma calcium dayna urement (mass/volume)Ordered By: Safia Ruelas on 11-12-2024 Calcium [Mass/Vol] 9.7 mg/dL 7.6-11.0 [facility] Serum or plasma urea nitroge n measurement (mass/volume)Ordered By: Safia Ruelas on 11-12-2024 Urea nitrogen [Mass/Vol] 24 mg/dL High 4-19 [facility] Sodium levelOrdered By: Leonides josé antonio Jessenia on 11-12-2024 Sodium [Moles/Vol] 139 mmol/L 133-145 [facility] White blood cell (WBC) count Ordered By: Safia Ruelas on 11-12-2024 WBC (Bld) [#/Vol] 7.8 10*3/uL 4.4-11.0 [facility] Absolute lymphocyte countOrd ered By: Safia Ruelas on 11-05-2024 Lymphocytes Auto (Unsp spec) [#/Vol] 2.91 10*3/uL 0.83-4.51 [facility] Absolute neutrophil countOrd ered By: Safia Ruelas on 11-05-2024 Neutrophils (Bld) [#/Vol] 4.6 10*3/uL 2.0-7.7 [facility] Anion gap in Serum or Plasma Ordered By: Safia Ruelas on 11-05-2024 Anion gap [Moles/Vol] 13 mmol/L 5-15 [facility] Automated lymphocyte count a s percentage of total leukocytesOrdered By: Safia Ruelas on 11-05-2024 Lymphocytes/100 WBC Auto (Unsp spec) 33.7 % 19-41 [facility] BUN/creatinine ratioOrdered By: Safia Ruelas on 11-05-2024 Urea nitrogen/Creatinine [Mass ratio] 23.3 mg/mg High 10-20 [facility] Basophil percentageOrdered B y: Safia Ruelas on 11-05-2024 Basophils/100 WBC (Bld) 0.9 % 0-1 [facility] Carbon dioxide, total [Moles /volume] in Central venous bloodOrdered By: Safia Ruelas on 11-05-2024 CO2 [Moles/Vol] 24.2 mmol/L 21.0-32.0 [facility] Chloride assayOrdered By: Balbir Ruelas on 11-05-2024 Chloride [Moles/Vol] 102 mmol/L 98-108 [facility] Eosinophil percentageOrdered By: Safia Ruelas on 11-05-2024 Eosinophils/100 WBC (Bld) 2.7 % 0-5 [facility] Erythrocyte distribution wid th ratioOrdered By: Safia Ruelas on 11-05-2024 Erythrocyte distribution width (RBC) [Ratio] 13.9 % 11.6-14.6 [facility] Erythrocyte distribution wid th standard deviationOrdered By: Safia Ruelas on 11-05-2024 Erythrocyte distribution width (RBC) [Ratio] 47.1 fl High 35.1-43.9 [facility] Glomerular filtration rate ( GFR) estimation/1.73 sq m using serum, plasma, or whole bOrdered By: Safia Ruelas on 11-05-2024 GFR/1.73 sq M.predicted among non-blacks MDRD (S/P/Bld) [Vol rate/Area] 62 mL/min/{1.73_m2} >60 [facility] Comment on above: mL/min/1.73m2 CKD-EP I Creatinine Equation (2020) Hematocrit Auto (Bld) [Volum e fraction]Ordered By: Safia Ruelas on 11-05-2024 Hematocrit (Bld) [Volume fraction] 40.7 % 37-47 [facility] Hemoglobin measurementOrdere d By: Safia Ruelas on 11-05-2024 Hemoglobin (Bld) [Mass/Vol] 12.9 g/dL 12.0-15.0 [facility] Immature granulocytes/100 WB C Auto (Bld)Ordered By: Safia Ruelas on 11-05-2024 Immature granulocytes/100 WBC (Bld) 0.500 % 0.0-0.9 [facility] Comment on above: IG% - Immature Granu locytes (promyelocytes, myelocytes and metamyelocytes) > 1% indicates that a LEFT SHIFT is Present. MCV (mean corpuscular volume ) determinationOrdered By: Safia Ruelas on 11-05-2024 MCV (RBC) [Entitic vol] 92.9 fL 81-99 [facility] Mean corpuscular hemoglobin (MCH) determinationOrdered By: Safia Ruelas on 11-05-2024 MCH (RBC) [Entitic mass] 29.5 pg 27.0-32.0 [facility] Mean corpuscular hemoglobin concentration (MCHC) determinationOrdered By: Safia Ruelas on 11-05-2024 MCHC (RBC) [Mass/Vol] 31.7 g/dL Low 32-36 [facility] Mean platelet volume determi nationOrdered By: Safia Ruelas on 11-05-2024 Platelet mean volume (Bld) [Entitic vol] 11.2 fL 6.2-12.0 [facility] Monocyte percentageOrdered B y: Safia Ruelas on 11-05-2024 Monocytes/100 WBC (Bld) 8.6 % 0-10 [facility] Neutrophil percentageOrdered By: Safia Ruelas on 11-05-2024 Neutrophils/100 WBC (Bld) 53.6 % 47-70 [facility] Nucleated red blood cell per centageOrdered By: Safia Ruelas on 11-05-2024 Nucleated RBC/100 WBC (Bld) [Ratio] 0 % 0-5 [facility] Platelet countOrdered By: Balbir Ruelas on 11-05-2024 Platelets (Bld) [#/Vol] 318 10*3/uL 150-450 [facility] Potassium measurement (mass/ volume)Ordered By: Safia Ruelas on 11-05-2024 Potassium (Unsp spec) [Mass/Vol] 4.0 mmol/L 3.3-5.1 [facility] RBC Auto (Bld) [#/Vol]Ordere d By: Safia Ruelas on 11-05-2024 RBC (Bld) [#/Vol] 4.38 10*6/uL 4.2-5.4 [facility] Serum creatinine measurement (mass/volume)Ordered By: Safia Ruelas on 11-05-2024 Creatinine [Mass/Vol] 0.93 mg/dL 0.70-1.20 [facility] Serum glucose measurement (m ass/volume)Ordered By: Safia Ruelas on 11-05-2024 Glucose [Mass/Vol] 70 mg/dL 70-99 [facility] Serum or plasma calcium dayna urement (mass/volume)Ordered By: Safia Ruelas on 11-05-2024 Calcium [Mass/Vol] 9.5 mg/dL 7.6-11.0 [facility] Serum or plasma urea nitroge n measurement (mass/volume)Ordered By: Balbirjean mariedesireeskye Griderbonimelanie on 11-05-2024 Urea nitrogen [Mass/Vol] 22 mg/dL High 4-19 [facility] Sodium levelOrdered By: Leonides chou Cheobonimelanie on 11-05-2024 Sodium [Moles/Vol] 139 mmol/L 133-145 [facility] White blood cell (WBC) count Ordered By: Balbirjean mariejosé antonio Cheobonimelanie on 11-05-2024 WBC (Bld) [#/Vol] 8.6 10*3/uL 4.4-11.0 [facility] Absolute lymphocyte countOrd ered By: Leonidesdesireeskye Griderbonimelanie on 10-29-2024 Lymphocytes Auto (Unsp spec) [#/Vol] 2.69 10*3/uL 0.83-4.51 [facility] Absolute neutrophil countOrd ered By: Leonidesdesireeskye Griderbonimelanie on 10-29-2024 Neutrophils (Bld) [#/Vol] 4.5 10*3/uL 2.0-7.7 [facility] Anion gap in Serum or Plasma Ordered By: Leonidesjosé antonio Cheobonimelanie on 10-29-2024 Anion gap [Moles/Vol] 11 mmol/L 5-15 [facility] Automated lymphocyte count a s percentage of total leukocytesOrdered By: Leonidesdesireeskye Griderbonimelanie on 10-29-2024 Lymphocytes/100 WBC Auto (Unsp spec) 32.6 % 19-41 [facility] BUN/creatinine ratioOrdered By: Balbirjean mariedesireeskye Griderbonimelanie on 10-29-2024 Urea nitrogen/Creatinine [Mass ratio] 25.2 mg/mg High 10-20 [facility] Basophil percentageOrdered B y: Bandarskye Griderbonimelanie on 10-29-2024 Basophils/100 WBC (Bld) 0.7 % 0-1 [facility] Carbon dioxide, total [Moles /volume] in Central venous bloodOrdered By: Balbirsherry Griderbonimelanie on 10-29-2024 CO2 [Moles/Vol] 25.7 mmol/L 21.0-32.0 [facility] Chloride assayOrdered By: Balbir jean mariejosé antonio Ruelas on 10-29-2024 Chloride [Moles/Vol] 102 mmol/L 98-108 [facility] Eosinophil percentageOrdered By: Safia Ruelas on 10-29-2024 Eosinophils/100 WBC (Bld) 2.1 % 0-5 [facility] Erythrocyte distribution wid th ratioOrdered By: Safia Ruelas on 10-29-2024 Erythrocyte distribution width (RBC) [Ratio] 13.6 % 11.6-14.6 [facility] Erythrocyte distribution wid th standard deviationOrdered By: Safia Ruelas on 10-29-2024 Erythrocyte distribution width (RBC) [Ratio] 46.6 fl High 35.1-43.9 [facility] Glomerular filtration rate ( GFR) estimation/1.73 sq m using serum, plasma, or whole bOrdered By: Safia Rueals on 10-29-2024 GFR/1.73 sq M.predicted among non-blacks MDRD (S/P/Bld) [Vol rate/Area] 59 mL/min/{1.73_m2} Low >60 [facility] Comment on above: mL/min/1.73m2 CKD-EP I Creatinine Equation (2020) Hematocrit Auto (Bld) [Volum e fraction]Ordered By: Leonidesmeyersvilleskye Ruelas on 10-29-2024 Hematocrit (Bld) [Volume fraction] 37.8 % 37-47 [facility] Hemoglobin measurementOrdere d By: Safia Ruelas on 10-29-2024 Hemoglobin (Bld) [Mass/Vol] 12.2 g/dL 12.0-15.0 [facility] Immature granulocytes/100 WB C Auto (Bld)Ordered By: Safia Ruelas on 10-29-2024 Immature granulocytes/100 WBC (Bld) 0.400 % 0.0-0.9 [facility] Comment on above: IG% - Immature Granu locytes (promyelocytes, myelocytes and metamyelocytes) > 1% indicates that a LEFT SHIFT is Present. MCV (mean corpuscular volume ) determinationOrdered By: Safia Ruelas on 10-29-2024 MCV (RBC) [Entitic vol] 92.2 fL 81-99 [facility] Mean corpuscular hemoglobin (MCH) determinationOrdered By: Safia Ruelas on 10-29-2024 MCH (RBC) [Entitic mass] 29.8 pg 27.0-32.0 [facility] Mean corpuscular hemoglobin concentration (MCHC) determinationOrdered By: Safia Ruelas on 10-29-2024 MCHC (RBC) [Mass/Vol] 32.3 g/dL 32-36 [facility] Mean platelet volume determi nationOrdered By: Safia Ruelas on 10-29-2024 Platelet mean volume (Bld) [Entitic vol] 11.1 fL 6.2-12.0 [facility] Monocyte percentageOrdered B y: Safia Ruelas on 10-29-2024 Monocytes/100 WBC (Bld) 9.9 % 0-10 [facility] Neutrophil percentageOrdered By: Safia Ruelas on 10-29-2024 Neutrophils/100 WBC (Bld) 54.3 % 47-70 [facility] Nucleated red blood cell per centageOrdered By: Safia Ruelas on 10-29-2024 Nucleated RBC/100 WBC (Bld) [Ratio] 0 % 0-5 [facility] Platelet countOrdered By: Balbir jean mariejosé antonio Ruelas on 10-29-2024 Platelets (Bld) [#/Vol] 283 10*3/uL 150-450 [facility] Potassium measurement (mass/ volume)Ordered By: Safia Ruelas on 10-29-2024 Potassium (Unsp spec) [Mass/Vol] 3.9 mmol/L 3.3-5.1 [facility] RBC Auto (Bld) [#/Vol]Ordere d By: Safia Ruelas on 10-29-2024 RBC (Bld) [#/Vol] 4.10 10*6/uL Low 4.2-5.4 [facility] Serum creatinine measurement (mass/volume)Ordered By: Safia Ruelas on 10-29-2024 Creatinine [Mass/Vol] 0.97 mg/dL 0.70-1.20 [facility] Serum glucose measurement (m ass/volume)Ordered By: Safia Ruelas on 10-29-2024 Glucose [Mass/Vol] 74 mg/dL 70-99 [facility] Serum or plasma calcium dayna urement (mass/volume)Ordered By: Safia Ruelas on 10-29-2024 Calcium [Mass/Vol] 9.5 mg/dL 7.6-11.0 [facility] Serum or plasma urea nitroge n measurement (mass/volume)Ordered By: Safia Ruelas on 10-29-2024 Urea nitrogen [Mass/Vol] 24 mg/dL High 4-19 [facility] Sodium levelOrdered By: Leonides Ruelas on 10-29-2024 Sodium [Moles/Vol] 138 mmol/L 133-145 [facility] White blood cell (WBC) count Ordered By: Safia Ruelas on 10-29-2024 WBC (Bld) [#/Vol] 8.3 10*3/uL 4.4-11.0 [facility] Bilirubin Test strip Ql (U)O rdered By: Safia Ruelas on 10-23-2024 Bilirubin Ql (U) Negative Negative [facility] Ketones Test strip Ql (U)Ord ered By: Safia Ruelas on 10-23-2024 Ketones Ql (U) Negative Negative [facility] Nitrite Test strip Ql (U)Ord ered By: Safia Ruelas on 10-23-2024 Nitrite Ql (U) Positive High Negative [facility] Protein Test strip Ql (U)Ord ered By: Safia Ruelas on 10-23-2024 Protein Ql (U) 15 mg/dl High Negative [facility] Urine clarityOrdered By: Augusto Ruelas on 10-23-2024 Clarity (U) Clear Clear [facility] Urine color determinationOrd ered By: Safia Ruelas on 10-23-2024 Color (U) Yellow Yellow [facility] Urine cultureOrdered By: Augusto Ruelas on 10-23-2024 Bacteria identified Cx Nom (U) Klebsiella pneumoniae sp pneum Abnormal [facility] Urine glucose detectionOrder ed By: Safia Ruelas on 10-23-2024 Glucose Ql (U) Normal mg/dl Normal [facility] Urine leukocyte esterase det ection by dipstickOrdered By: Safia Ruelas on 10-23-2024 Leukocyte esterase Test strip Ql (U) 500 /ul High Negative [facility] Urine pHOrdered By: Mazin Ruelas on 10-23-2024 pH (U) 6.0 [pH] 5.0 - 8.0 [facility] Urine specific gravity measu rementOrdered By: Safia Ruelas on 10-23-2024 Specific gravity (U) [Rel density] 1.010 1.002-1.030 [facility] Urine urobilinogen measureme ntOrdered By: Safia Ruelas on 10-23-2024 Urobilinogen Ql (U) Normal mg/dl Normal [facility] Absolute lymphocyte countOrd ered By: Safia Ruelas on 10-22-2024 Lymphocytes Auto (Unsp spec) [#/Vol] 3.07 10*3/uL 0.83-4.51 [facility] Absolute neutrophil countOrd ered By: Safia Ruelas on 10-22-2024 Neutrophils (Bld) [#/Vol] 4.6 10*3/uL 2.0-7.7 [facility] Anion gap in Serum or Plasma Ordered By: Safia Ruelas on 10-22-2024 Anion gap [Moles/Vol] 15 mmol/L 5-15 [facility] Automated lymphocyte count a s percentage of total leukocytesOrdered By: Safia Ruelas on 10-22-2024 Lymphocytes/100 WBC Auto (Unsp spec) 34.8 % 19-41 [facility] BUN/creatinine ratioOrdered By: Safia Ruelas on 10-22-2024 Urea nitrogen/Creatinine [Mass ratio] 28.6 mg/mg High 10-20 [facility] Basophil percentageOrdered B y: Safia Ruelas on 10-22-2024 Basophils/100 WBC (Bld) 0.9 % 0-1 [facility] Carbon dioxide, total [Moles /volume] in Central venous bloodOrdered By: Safia Ruelas on 10-22-2024 CO2 [Moles/Vol] 23.1 mmol/L 21.0-32.0 [facility] Chloride assayOrdered By: Balbir Ruelas on 10-22-2024 Chloride [Moles/Vol] 100 mmol/L 98-108 [facility] Eosinophil percentageOrdered By: Safia Ruelas on 10-22-2024 Eosinophils/100 WBC (Bld) 3.1 % 0-5 [facility] Erythrocyte distribution wid th ratioOrdered By: Safia Ruelas on 10-22-2024 Erythrocyte distribution width (RBC) [Ratio] 13.6 % 11.6-14.6 [facility] Erythrocyte distribution wid th standard deviationOrdered By: Safia Ruelas on 10-22-2024 Erythrocyte distribution width (RBC) [Ratio] 45.9 fl High 35.1-43.9 [facility] Glomerular filtration rate ( GFR) estimation/1.73 sq m using serum, plasma, or whole bOrdered By: Saifa Ruelas on 10-22-2024 GFR/1.73 sq M.predicted among non-blacks MDRD (S/P/Bld) [Vol rate/Area] 60 mL/min/{1.73_m2} >60 [facility] Comment on above: mL/min/1.73m2 CKD-EP I Creatinine Equation (2020) Hematocrit Auto (Bld) [Volum e fraction]Ordered By: Safia Ruelas 10-22-2024 Hematocrit (Bld) [Volume fraction] 40.7 % 37-47 [facility] Hemoglobin measurementOrdere d By: Safia Ruelas on 10-22-2024 Hemoglobin (Bld) [Mass/Vol] 13.1 g/dL 12.0-15.0 [facility] Immature granulocytes/100 WB C Auto (Bld)Ordered By: Safia Ruelas 10-22-2024 Immature granulocytes/100 WBC (Bld) 1.400 % High 0.0-0.9 [facility] Comment on above: IG% - Immature Granu locytes (promyelocytes, myelocytes and metamyelocytes) > 1% indicates that a LEFT SHIFT is Present. MCV (mean corpuscular volume ) determinationOrdered By: Safia Ruelas on 10-22-2024 MCV (RBC) [Entitic vol] 91.9 fL 81-99 [facility] Mean corpuscular hemoglobin (MCH) determinationOrdered By: Safia Ruelas on 10-22-2024 MCH (RBC) [Entitic mass] 29.6 pg 27.0-32.0 [facility] Mean corpuscular hemoglobin concentration (MCHC) determinationOrdered By: Safia Ruelas on 10-22-2024 MCHC (RBC) [Mass/Vol] 32.2 g/dL 32-36 [facility] Mean platelet volume determi nationOrdered By: Safia Ruelas on 10-22-2024 Platelet mean volume (Bld) [Entitic vol] 11.2 fL 6.2-12.0 [facility] Monocyte percentageOrdered B y: Safia Ruelas on 10-22-2024 Monocytes/100 WBC (Bld) 7.7 % 0-10 [facility] Neutrophil percentageOrdered By: Safia Ruelas on 10-22-2024 Neutrophils/100 WBC (Bld) 52.1 % 47-70 [facility] Nucleated red blood cell per centageOrdered By: Safia Ruelas on 10-22-2024 Nucleated RBC/100 WBC (Bld) [Ratio] 0 % 0-5 [facility] Platelet countOrdered By: Balbir Ruelas on 10-22-2024 Platelets (Bld) [#/Vol] 334 10*3/uL 150-450 [facility] Potassium measurement (mass/ volume)Ordered By: Safia Ruelas on 10-22-2024 Potassium (Unsp spec) [Mass/Vol] 3.7 mmol/L 3.3-5.1 [facility] RBC Auto (Bld) [#/Vol]Ordere d By: Safia Ruelas on 10-22-2024 RBC (Bld) [#/Vol] 4.43 10*6/uL 4.2-5.4 [facility] Serum creatinine measurement (mass/volume)Ordered By: Safia Ruelas on 10-22-2024 Creatinine [Mass/Vol] 0.96 mg/dL 0.70-1.20 [facility] Serum glucose measurement (m ass/volume)Ordered By: Safia Ruelas on 10-22-2024 Glucose [Mass/Vol] 106 mg/dL High 70-99 [facility] Serum or plasma calcium dayna urement (mass/volume)Ordered By: Safia Ruelas on 10-22-2024 Calcium [Mass/Vol] 9.4 mg/dL 7.6-11.0 [facility] Serum or plasma urea nitroge n measurement (mass/volume)Ordered By: Safia Ruelas on 10-22-2024 Urea nitrogen [Mass/Vol] 28 mg/dL High 4-19 [facility] Sodium levelOrdered By: Leonides jiménezradha Jessenia on 10-22-2024 Sodium [Moles/Vol] 138 mmol/L 133-145 [facility] TSH DL <= 0.005 mIU/L QnOrde red By: Safia Ruelas on 10-22-2024 TSH Qn 4.630 uIU/mL High 0.300-4.200 [facility] White blood cell (WBC) count Ordered By: Safia Ruelas on 10-22-2024 WBC (Bld) [#/Vol] 8.8 10*3/uL 4.4-11.0 [facility] Absolute lymphocyte countOrd ered By: Safia Ruelas on 10-15-2024 Lymphocytes Auto (Unsp spec) [#/Vol] 3.04 10*3/uL 0.83-4.51 [facility] Absolute neutrophil countOrd ered By: Safia Ruelas on 10-15-2024 Neutrophils (Bld) [#/Vol] 4.3 10*3/uL 2.0-7.7 [facility] Anion gap in Serum or Plasma Ordered By: Safia Ruelas on 10-15-2024 Anion gap [Moles/Vol] 12 mmol/L 5-15 [facility] Automated lymphocyte count a s percentage of total leukocytesOrdered By: Safia Ruelas on 10-15-2024 Lymphocytes/100 WBC Auto (Unsp spec) 36.7 % 19-41 [facility] BUN/creatinine ratioOrdered By: Safia Ruelas on 10-15-2024 Urea nitrogen/Creatinine [Mass ratio] 36.5 mg/mg High 10-20 [facility] Basophil percentageOrdered B y: Safia Ruelas on 10-15-2024 Basophils/100 WBC (Bld) 0.7 % 0-1 [facility] Carbon dioxide, total [Moles /volume] in Central venous bloodOrdered By: Safia Ruelas on 10-15-2024 CO2 [Moles/Vol] 25.2 mmol/L 21.0-32.0 [facility] Chloride assayOrdered By: Balbir Ruelas on 10-15-2024 Chloride [Moles/Vol] 100 mmol/L 98-108 [facility] Eosinophil percentageOrdered By: Leonidesmeyersvilleskye Ruelas on 10-15-2024 Eosinophils/100 WBC (Bld) 2.4 % 0-5 [facility] Erythrocyte distribution wid th ratioOrdered By: Safia Ruelas on 10-15-2024 Erythrocyte distribution width (RBC) [Ratio] 13.5 % 11.6-14.6 [facility] Erythrocyte distribution wid th standard deviationOrdered By: Safia Ruelas on 10-15-2024 Erythrocyte distribution width (RBC) [Ratio] 45.2 fl High 35.1-43.9 [facility] Glomerular filtration rate ( GFR) estimation/1.73 sq m using serum, plasma, or whole bOrdered By: Safia Ruelas on 10-15-2024 GFR/1.73 sq M.predicted among non-blacks MDRD (S/P/Bld) [Vol rate/Area] 71 mL/min/{1.73_m2} >60 [facility] Comment on above: mL/min/1.73m2 CKD-EP I Creatinine Equation (2020) Hematocrit Auto (Bld) [Volum e fraction]Ordered By: Safia Ruelas on 10-15-2024 Hematocrit (Bld) [Volume fraction] 40.3 % 37-47 [facility] Hemoglobin measurementOrdere d By: Safia Ruelas on 10-15-2024 Hemoglobin (Bld) [Mass/Vol] 13.3 g/dL 12.0-15.0 [facility] Immature granulocytes/100 WB C Auto (Bld)Ordered By: Safia Ruelas on 10-15-2024 Immature granulocytes/100 WBC (Bld) 0.400 % 0.0-0.9 [facility] Comment on above: IG% - Immature Granu locytes (promyelocytes, myelocytes and metamyelocytes) > 1% indicates that a LEFT SHIFT is Present. MCV (mean corpuscular volume ) determinationOrdered By: Safia Ruelas on 10-15-2024 MCV (RBC) [Entitic vol] 91.0 fL 81-99 [facility] Mean corpuscular hemoglobin (MCH) determinationOrdered By: sherry Ruelas on 10-15-2024 MCH (RBC) [Entitic mass] 30.0 pg 27.0-32.0 [facility] Mean corpuscular hemoglobin concentration (MCHC) determinationOrdered By: sherry Ruelas on 10-15-2024 MCHC (RBC) [Mass/Vol] 33.0 g/dL 32-36 [facility] Mean platelet volume determi nationOrdered By: Safia Ruelas on 10-15-2024 Platelet mean volume (Bld) [Entitic vol] 11.9 fL 6.2-12.0 [facility] Monocyte percentageOrdered B y: Safia Ruelas on 10-15-2024 Monocytes/100 WBC (Bld) 8.2 % 0-10 [facility] Neutrophil percentageOrdered By: Safia Ruelas on 10-15-2024 Neutrophils/100 WBC (Bld) 51.6 % 47-70 [facility] Nucleated red blood cell per centageOrdered By: sherry Ruelas on 10-15-2024 Nucleated RBC/100 WBC (Bld) [Ratio] 0 % 0-5 [facility] Platelet countOrdered By: Balbir Ruelas on 10-15-2024 Platelets (Bld) [#/Vol] 221 10*3/uL 150-450 [facility] Potassium measurement (mass/ volume)Ordered By: Safia Ruelas on 10-15-2024 Potassium (Unsp spec) [Mass/Vol] 3.8 mmol/L 3.3-5.1 [facility] RBC Auto (Bld) [#/Vol]Ordere d By: Safia Ruelas on 10-15-2024 RBC (Bld) [#/Vol] 4.43 10*6/uL 4.2-5.4 [facility] Serum creatinine measurement (mass/volume)Ordered By: Safia Ruelas on 10-15-2024 Creatinine [Mass/Vol] 0.83 mg/dL 0.70-1.20 [facility] Serum glucose measurement (m ass/volume)Ordered By: Safia Ruelas on 10-15-2024 Glucose [Mass/Vol] 68 mg/dL Low 70-99 [facility] Serum or plasma calcium dayna urement (mass/volume)Ordered By: Safia Ruelas on 10-15-2024 Calcium [Mass/Vol] 9.3 mg/dL 7.6-11.0 [facility] Serum or plasma urea nitroge n measurement (mass/volume)Ordered By: Safia Ruelas on 10-15-2024 Urea nitrogen [Mass/Vol] 30 mg/dL High 4-19 [facility] Sodium levelOrdered By: Leonides jiméneztadmelanie Ruelas on 10-15-2024 Sodium [Moles/Vol] 138 mmol/L 133-145 [facility] White blood cell (WBC) count Ordered By: Safia Ruelas on 10-15-2024 WBC (Bld) [#/Vol] 8.3 10*3/uL 4.4-11.0 [facility] Absolute lymphocyte countOrd ered By: Safia Ruelas on 10-08-2024 Lymphocytes Auto (Unsp spec) [#/Vol] 2.52 10*3/uL 0.83-4.51 [facility] Absolute neutrophil countOrd ered By: Safia Ruelas on 10-08-2024 Neutrophils (Bld) [#/Vol] 4.9 10*3/uL 2.0-7.7 [facility] Anion gap in Serum or Plasma Ordered By: Safia Ruelas on 10-08-2024 Anion gap [Moles/Vol] 14 mmol/L 5-15 [facility] Automated lymphocyte count a s percentage of total leukocytesOrdered By: Safia Ruelas on 10-08-2024 Lymphocytes/100 WBC Auto (Unsp spec) 29.4 % 19-41 [facility] BUN/creatinine ratioOrdered By: Leonidesmeyersvilleskye Ruelsa on 10-08-2024 Urea nitrogen/Creatinine [Mass ratio] 34.1 mg/mg High 10-20 [facility] Basophil percentageOrdered B y: Safia Ruelas on 10-08-2024 Basophils/100 WBC (Bld) 0.7 % 0-1 [facility] Carbon dioxide, total [Moles /volume] in Central venous bloodOrdered By: [facility] Eglestonskye Ruelas on 10-08-2024 CO2 [Moles/Vol] 24.0 mmol/L 21.0-32.0 [facility] Chloride assayOrdered By: Balbir Ruelas on 10-08-2024 Chloride [Moles/Vol] 100 mmol/L 98-108 [facility] Eosinophil percentageOrdered By: jean mariemeyersvilleskye Ruelas on 10-08-2024 Eosinophils/100 WBC (Bld) 2.6 % 0-5 [facility] Erythrocyte distribution wid th ratioOrdered By: jean mariemeyersvilleskye Ruelas on 10-08-2024 Erythrocyte distribution width (RBC) [Ratio] 13.2 % 11.6-14.6 [facility] Erythrocyte distribution wid th standard deviationOrdered By: jean mariemeyersvilleskye Ruelas on 10-08-2024 Erythrocyte distribution width (RBC) [Ratio] 45.3 fl High 35.1-43.9 [facility] Glomerular filtration rate ( GFR) estimation/1.73 sq m using serum, plasma, or whole bOrdered By: Safia Ruelas on 10-08-2024 GFR/1.73 sq M.predicted among non-blacks MDRD (S/P/Bld) [Vol rate/Area] 65 mL/min/{1.73_m2} >60 [facility] Comment on above: mL/min/1.73m2 CKD-EP I Creatinine Equation (2020) Hematocrit Auto (Bld) [Volum e fraction]Ordered By: Safia Ruelas on 10-08-2024 Hematocrit (Bld) [Volume fraction] 41.7 % 37-47 [facility] Hemoglobin measurementOrdere d By: Safia Ruelas on 10-08-2024 Hemoglobin (Bld) [Mass/Vol] 13.3 g/dL 12.0-15.0 [facility] Immature granulocytes/100 WB C Auto (Bld)Ordered By: Safia Ruelas on 10-08-2024 Immature granulocytes/100 WBC (Bld) 0.400 % 0.0-0.9 [facility] Comment on above: IG% - Immature Granu locytes (promyelocytes, myelocytes and metamyelocytes) > 1% indicates that a LEFT SHIFT is Present. MCV (mean corpuscular volume ) determinationOrdered By: Safia Ruelas on 10-08-2024 MCV (RBC) [Entitic vol] 92.7 fL 81-99 [facility] Mean corpuscular hemoglobin (MCH) determinationOrdered By: sherry Ruelas on 10-08-2024 MCH (RBC) [Entitic mass] 29.6 pg 27.0-32.0 [facility] Mean corpuscular hemoglobin concentration (MCHC) determinationOrdered By: Safia Ruelas on 10-08-2024 MCHC (RBC) [Mass/Vol] 31.9 g/dL Low 32-36 [facility] Mean platelet volume determi nationOrdered By: Safia Ruelas on 10-08-2024 Platelet mean volume (Bld) [Entitic vol] 11.0 fL 6.2-12.0 [facility] Monocyte percentageOrdered B y: Safia Ruelas on 10-08-2024 Monocytes/100 WBC (Bld) 9.2 % 0-10 [facility] Neutrophil percentageOrdered By: Safia Ruelas on 10-08-2024 Neutrophils/100 WBC (Bld) 57.7 % 47-70 [facility] Nucleated red blood cell per centageOrdered By: Safia Ruelas on 10-08-2024 Nucleated RBC/100 WBC (Bld) [Ratio] 0 % 0-5 [facility] Platelet countOrdered By: Balbir randallskye Ruelas on 10-08-2024 Platelets (Bld) [#/Vol] 323 10*3/uL 150-450 [facility] Potassium measurement (mass/ volume)Ordered By: Safia Ruelas on 10-08-2024 Potassium (Unsp spec) [Mass/Vol] 4.1 mmol/L 3.3-5.1 [facility] RBC Auto (Bld) [#/Vol]Ordere d By: Safia Ruelas on 10-08-2024 RBC (Bld) [#/Vol] 4.50 10*6/uL 4.2-5.4 [facility] Serum creatinine measurement (mass/volume)Ordered By: Safia Ruelas on 10-08-2024 Creatinine [Mass/Vol] 0.90 mg/dL 0.70-1.20 [facility] Serum glucose measurement (m ass/volume)Ordered By: Safia Ruelas on 10-08-2024 Glucose [Mass/Vol] 82 mg/dL 70-99 [facility] Serum or plasma calcium dayna urement (mass/volume)Ordered By: Safia Ruelas on 10-08-2024 Calcium [Mass/Vol] 9.6 mg/dL 7.6-11.0 [facility] Serum or plasma urea nitroge n measurement (mass/volume)Ordered By: Safia Ruelas on 10-08-2024 Urea nitrogen [Mass/Vol] 31 mg/dL High 4-19 [facility] Sodium levelOrdered By: Leonides josé antonio Jessenia on 10-08-2024 Sodium [Moles/Vol] 138 mmol/L 133-145 [facility] White blood cell (WBC) count Ordered By: Safia Ruelas on 10-08-2024 WBC (Bld) [#/Vol] 8.6 10*3/uL 4.4-11.0 [facility] 12 Lead EKG performed by [facility] on 10-02-2024 12 Lead EKG performed by [facility] [id number] [place] [address] 12 Lead EKG performed by [facility] 10/02/24920 MR#: [id number] Acct: [id number] Name: LINDSAY ACUNA Rep #: [id number] : 1945 78 From: Mj Benavides MD Attending Dr: Dr. Mj Benavides MD Status: DEP A MB Ordering Dr: Mj Benavides MD Date: 10/02/24 Location: [facility] Sex: F C Admitted: BMS/12 Lead EKG performed by [facility] ECG Report Interpretation ---Atrial fibrillation -irregular conduction -Old anterior infarct. ABNORMAL Electronically signed on 10/02/2024 at 16:06 by Mj Benavides [employer] Version [id number] 10/02/24 1608 Date Mj Benavides MD CC: Dr. Kameron Caruso MD Date Dictated: 10/02/24920 Date Transcribed: 10/02/24920 [employer]mallow Runner: [place] Signed Normal [facility] Cardiology Visit Reporton Cardiology Visit Report [facility] [address] [place] [address] OFFICE VISIT Date of Service: 10/02/24 MR#: [id number] Acct: [id number] Name: LINDSAY ACUNA Rep #: [id number] : 1945 Provider: Dr. Mj Benavides MD Age/Sex: 78/F Location: [facility] Status: Signed HPI HPI History of Present [...] now she is currently domiciled in a residential. 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 Normal [facility] Absolute lymphocyte countOrd ered By: Leonidesdesireeskye Griderbonimelanie on 10-01-2024 Lymphocytes Auto (Unsp spec) [#/Vol] 2.45 10*3/uL 0.83-4.51 [facility] Absolute neutrophil countOrd ered By: Bandarsyke Enricoe on 10-01-2024 Neutrophils (Bld) [#/Vol] 6.5 10*3/uL 2.0-7.7 [facility] Anion gap in Serum or Plasma Ordered By: Safia Griderbonimelanie on 10-01-2024 Anion gap [Moles/Vol] 12 mmol/L 5-15 [facility] Automated lymphocyte count a s percentage of total leukocytesOrdered By: Safia Griderbonimelanie on 10-01-2024 Lymphocytes/100 WBC Auto (Unsp spec) 23.1 % 19-41 [facility] BUN/creatinine ratioOrdered By: Safia Griderbonimelanie on 10-01-2024 Urea nitrogen/Creatinine [Mass ratio] 24.9 mg/mg High 10- [facility] Basophil percentageOrdered B y: Bandarskye Griderbonie on 10-01-2024 Basophils/100 WBC (Bld) 0.5 % 0-1 [facility] Carbon dioxide, total [Moles /volume] in Central venous bloodOrdered By: Safia Griderbonimelanie on 10-01-2024 CO2 [Moles/Vol] 24.4 mmol/L 21.0-32.0 [facility] Chloride assayOrdered By: Balbir jean marieskye Ruelas on 10-01-2024 Chloride [Moles/Vol] 99 mmol/L 98-108 [facility] Eosinophil percentageOrdered By: sherry Griderbonie on 10-01-2024 Eosinophils/100 WBC (Bld) 2.0 % 0-5 [facility] Erythrocyte distribution wid th ratioOrdered By: Bandarbe Cheobonie on 10-01-2024 Erythrocyte distribution width (RBC) [Ratio] 13.5 % 11.6-14.6 [facility] Erythrocyte distribution wid th standard deviationOrdered By: Safia Griderbonie on 10-01-2024 Erythrocyte distribution width (RBC) [Ratio] 46.2 fl High 35.1-43.9 [facility] Glomerular filtration rate ( GFR) estimation/1.73 sq m using serum, plasma, or whole bOrdered By: Safia Ruelas on 10-01-2024 GFR/1.73 sq M.predicted among non-blacks MDRD (S/P/Bld) [Vol rate/Area] 63 mL/min/{1.73_m2} >60 [facility] Comment on above: mL/min/1.73m2 CKD-EP I Creatinine Equation (2020) Hematocrit Auto (Bld) [Volum e fraction]Ordered By: Safia Ruelas on 10-01-2024 Hematocrit (Bld) [Volume fraction] 38.7 % 37-47 [facility] Hemoglobin measurementOrdere d By: Safia Ruelas on 10-01-2024 Hemoglobin (Bld) [Mass/Vol] 12.5 g/dL 12.0-15.0 [facility] Immature granulocytes/100 WB C Auto (Bld)Ordered By: Safia Ruelas on 10-01-2024 Immature granulocytes/100 WBC (Bld) 0.800 % 0.0-0.9 [facility] Comment on above: IG% - Immature Granu locytes (promyelocytes, myelocytes and metamyelocytes) > 1% indicates that a LEFT SHIFT is Present. MCV (mean corpuscular volume ) determinationOrdered By: Safia Ruelas on 10-01-2024 MCV (RBC) [Entitic vol] 93.3 fL 81-99 [facility] Mean corpuscular hemoglobin (MCH) determinationOrdered By: Safia Ruelas on 10-01-2024 MCH (RBC) [Entitic mass] 30.1 pg 27.0-32.0 [facility] Mean corpuscular hemoglobin concentration (MCHC) determinationOrdered By: Safia Ruelas on 10-01-2024 MCHC (RBC) [Mass/Vol] 32.3 g/dL 32-36 [facility] Mean platelet volume determi nationOrdered By: Leonidesmeyersvilleskye Ruelas on 10-01-2024 Platelet mean volume (Bld) [Entitic vol] 11.7 fL 6.2-12.0 [facility] Monocyte percentageOrdered B y: Safia Cheoquyen on 10-01-2024 Monocytes/100 WBC (Bld) 12.7 % High 0-10 [facility] Neutrophil percentageOrdered By: Safia Cheoquyen on 10-01-2024 Neutrophils/100 WBC (Bld) 60.9 % 47-70 [facility] Nucleated red blood cell per centageOrdered By: Balbirjean mariejosé antonio Cheoquyen on 10-01-2024 Nucleated RBC/100 WBC (Bld) [Ratio] 0 % 0-5 [facility] Platelet countOrdered By: Balbir sherry Jessenia on 10-01-2024 Platelets (Bld) [#/Vol] 371 10*3/uL 150-450 [facility] Potassium measurement (mass/ volume)Ordered By: Leonidesdesireeskye Griderbonimelanie on 10-01-2024 Potassium (Unsp spec) [Mass/Vol] 4.2 mmol/L 3.3-5.1 [facility] RBC Auto (Bld) [#/Vol]Ordere d By: Safia Cheobonimelanie on 10-01-2024 RBC (Bld) [#/Vol] 4.15 10*6/uL Low 4.2-5.4 [facility] Serum creatinine measurement (mass/volume)Ordered By: Safia Ruelas on 10-01-2024 Creatinine [Mass/Vol] 0.93 mg/dL 0.70-1.20 [facility] Serum glucose measurement (m ass/volume)Ordered By: Safia Ruelas on 10-01-2024 Glucose [Mass/Vol] 93 mg/dL 70-99 [facility] Serum or plasma calcium dayna urement (mass/volume)Ordered By: Safia Ruelas on 10-01-2024 Calcium [Mass/Vol] 9.5 mg/dL 7.6-11.0 [facility] Serum or plasma urea nitroge n measurement (mass/volume)Ordered By: Safia Griderbonimelanie on 10-01-2024 Urea nitrogen [Mass/Vol] 23 mg/dL High 4-19 [facility] Sodium levelOrdered By: Leonides josé antonio Jessenia on 10-01-2024 Sodium [Moles/Vol] 135 mmol/L 133-145 [facility] White blood cell (WBC) count Ordered By: Safia Ruelas on 10-01-2024 WBC (Bld) [#/Vol] 10.6 10*3/uL 4.4-11.0 [facility] Clostridium difficile detect ion by polymerase chain reactionOrdered By: Safia Ruelas on 09-29-2024 C. difficile DNA CHUCKY+probe Ql (Unsp spec) [facility] Absolute lymphocyte countOrd ered By: Safia Ruelas on 09-24-2024 Lymphocytes Auto (Unsp spec) [#/Vol] 2.72 10*3/uL 0.83-4.51 [facility] Absolute neutrophil countOrd ered By: Safia Ruelas on 09-24-2024 Neutrophils (Bld) [#/Vol] 6.3 10*3/uL 2.0-7.7 [facility] Anion gap in Serum or Plasma Ordered By: Safia Ruelas on 09-24-2024 Anion gap [Moles/Vol] 12 mmol/L 5-15 [facility] Automated lymphocyte count a s percentage of total leukocytesOrdered By: Safia Ruelas on 09-24-2024 Lymphocytes/100 WBC Auto (Unsp spec) 26.3 % 19-41 [facility] BUN/creatinine ratioOrdered By: Safia Ruelas on 09-24-2024 Urea nitrogen/Creatinine [Mass ratio] 36.4 mg/mg High 10-20 [facility] Basophil percentageOrdered B y: Safia Ruelas on 09-24-2024 Basophils/100 WBC (Bld) 0.7 % 0-1 [facility] Carbon dioxide, total [Moles /volume] in Central venous bloodOrdered By: Safia Ruelas on 09-24-2024 CO2 [Moles/Vol] 24.1 mmol/L 21.0-32.0 [facility] Chloride assayOrdered By: Balbir Ruelas on 09-24-2024 Chloride [Moles/Vol] 100 mmol/L 98-108 [facility] Eosinophil percentageOrdered By: Safia Ruelas on 09-24-2024 Eosinophils/100 WBC (Bld) 2.7 % 0-5 [facility] Erythrocyte distribution wid th ratioOrdered By: Safia Ruelas on 09-24-2024 Erythrocyte distribution width (RBC) [Ratio] 13.6 % 11.6-14.6 [facility] Erythrocyte distribution wid th standard deviationOrdered By: Safia Ruelas on 09-24-2024 Erythrocyte distribution width (RBC) [Ratio] 47.1 fl High 35.1-43.9 [facility] Glomerular filtration rate ( GFR) estimation/1.73 sq m using serum, plasma, or whole bOrdered By: Leonidesmeyersvilleskye Ruelas on 09-24-2024 GFR/1.73 sq M.predicted among non-blacks MDRD (S/P/Bld) [Vol rate/Area] 62 mL/min/{1.73_m2} >60 [facility] Comment on above: mL/min/1.73m2 CKD-EP I Creatinine Equation (2020) Hematocrit Auto (Bld) [Volum e fraction]Ordered By: Safia Ruelas on 09-24-2024 Hematocrit (Bld) [Volume fraction] 41.2 % 37-47 [facility] Hemoglobin measurementOrdere d By: Safia Ruelas 09-24-2024 Hemoglobin (Bld) [Mass/Vol] 13.0 g/dL 12.0-15.0 [facility] Immature granulocytes/100 WB C Auto (Bld)Ordered By: Safia Ruelas 09-24-2024 Immature granulocytes/100 WBC (Bld) 1.000 % High 0.0-0.9 [facility] Comment on above: IG% - Immature Granu locytes (promyelocytes, myelocytes and metamyelocytes) > 1% indicates that a LEFT SHIFT is Present. MCV (mean corpuscular volume ) determinationOrdered By: Safia Ruelas on 09-24-2024 MCV (RBC) [Entitic vol] 94.3 fL 81-99 [facility] Mean corpuscular hemoglobin (MCH) determinationOrdered By: Safia Ruelas 09-24-2024 MCH (RBC) [Entitic mass] 29.7 pg 27.0-32.0 [facility] Mean corpuscular hemoglobin concentration (MCHC) determinationOrdered By: Safia Ruelas on 09-24-2024 MCHC (RBC) [Mass/Vol] 31.6 g/dL Low 32-36 [facility] Mean platelet volume determi nationOrdered By: Safia Ruelas on 09-24-2024 Platelet mean volume (Bld) [Entitic vol] 11.3 fL 6.2-12.0 [facility] Monocyte percentageOrdered B y: Safia Ruelas on 09-24-2024 Monocytes/100 WBC (Bld) 8.9 % 0-10 [facility] Neutrophil percentageOrdered By: Safia Ruelas on 09-24-2024 Neutrophils/100 WBC (Bld) 60.4 % 47-70 [facility] Nucleated red blood cell per centageOrdered By: Safia Ruelas on 09-24-2024 Nucleated RBC/100 WBC (Bld) [Ratio] 0 % 0-5 [facility] Platelet countOrdered By: Balbir Ruelas on 09-24-2024 Platelets (Bld) [#/Vol] 441 10*3/uL 150-450 [facility] Potassium measurement (mass/ volume)Ordered By: Safia Ruelas on 09-24-2024 Potassium (Unsp spec) [Mass/Vol] 4.3 mmol/L 3.3-5.1 [facility] RBC Auto (Bld) [#/Vol]Ordere d By: aSfia Ruelas on 09-24-2024 RBC (Bld) [#/Vol] 4.37 10*6/uL 4.2-5.4 [facility] Serum creatinine measurement (mass/volume)Ordered By: Safia Ruelas on 09-24-2024 Creatinine [Mass/Vol] 0.93 mg/dL 0.70-1.20 [facility] Serum glucose measurement (m ass/volume)Ordered By: Safia Ruelas on 09-24-2024 Glucose [Mass/Vol] 48 mg/dL Low 70-99 [facility] Serum or plasma calcium dayna urement (mass/volume)Ordered By: Safia Ruelas on 09-24-2024 Calcium [Mass/Vol] 9.5 mg/dL 7.6-11.0 [facility] Serum or plasma urea nitroge n measurement (mass/volume)Ordered By: Safia Ruelas on 09-24-2024 Urea nitrogen [Mass/Vol] 34 mg/dL High 4-19 [facility] Sodium levelOrdered By: Leonides josé antonio Jessenia on 09-24-2024 Sodium [Moles/Vol] 136 mmol/L 133-145 [facility] White blood cell (WBC) count Ordered By: Safia Ruelas on 09-24-2024 WBC (Bld) [#/Vol] 10.4 10*3/uL 4.4-11.0 [facility] Absolute lymphocyte countOrd ered By: Safia Ruelas on 09-17-2024 Lymphocytes Auto (Unsp spec) [#/Vol] 2.52 10*3/uL 0.83-4.51 [facility] Absolute neutrophil countOrd ered By: Safia Ruelas on 09-17-2024 Neutrophils (Bld) [#/Vol] 5.8 10*3/uL 2.0-7.7 [facility] Anion gap in Serum or Plasma Ordered By: Safia Ruelas on 09-17-2024 Anion gap [Moles/Vol] 12 mmol/L 5-15 [facility] Automated lymphocyte count a s percentage of total leukocytesOrdered By: Safia Ruelas on 09-17-2024 Lymphocytes/100 WBC Auto (Unsp spec) 26.3 % 19-41 [facility] BUN/creatinine ratioOrdered By: Safia Ruelas on 09-17-2024 Urea nitrogen/Creatinine [Mass ratio] 45.9 mg/mg High 10-20 [facility] Basophil percentageOrdered B y: Safia Ruelas on 09-17-2024 Basophils/100 WBC (Bld) 0.6 % 0-1 [facility] Calculated very low density lipoprotein (VLDL) cholesterol measurementOrdered By: Safia Ruelas on 09-17-2024 Calculated very low density lipoprotein (VLDL) cholesterol measurement 22 mg/dL 5-40 [facility] Carbon dioxide, total [Moles /volume] in Central venous bloodOrdered By: Safia Ruelas on 09-17-2024 CO2 [Moles/Vol] 24.5 mmol/L 21.0-32.0 [facility] Chloride assayOrdered By: Balbir Ruelas on 09-17-2024 Chloride [Moles/Vol] 98 mmol/L 98-108 [facility] Eosinophil percentageOrdered By: Safia Ruelas on 09-17-2024 Eosinophils/100 WBC (Bld) 3.2 % 0-5 [facility] Erythrocyte distribution wid th ratioOrdered By: Safia Ruelas on 09-17-2024 Erythrocyte distribution width (RBC) [Ratio] 13.4 % 11.6-14.6 [facility] Erythrocyte distribution wid th standard deviationOrdered By: Safia Ruelas on 09-17-2024 Erythrocyte distribution width (RBC) [Ratio] 45.4 fl High 35.1-43.9 [facility] Glomerular filtration rate ( GFR) estimation/1.73 sq m using serum, plasma, or whole bOrdered By: Safia Ruelas on 09-17-2024 GFR/1.73 sq M.predicted among non-blacks MDRD (S/P/Bld) [Vol rate/Area] 69 mL/min/{1.73_m2} >60 [facility] Comment on above: mL/min/1.73m2 CKD-EP I Creatinine Equation (2020) Hematocrit Auto (Bld) [Volum e fraction]Ordered By: Safia Ruelas on 09-17-2024 Hematocrit (Bld) [Volume fraction] 38.8 % 37-47 [facility] Hemoglobin measurementOrdere d By: Safia Ruelas on 09-17-2024 Hemoglobin (Bld) [Mass/Vol] 12.6 g/dL 12.0-15.0 [facility] Immature granulocytes/100 WB C Auto (Bld)Ordered By: Safia Ruelas on 09-17-2024 Immature granulocytes/100 WBC (Bld) 0.700 % 0.0-0.9 [facility] Comment on above: IG% - Immature Granu locytes (promyelocytes, myelocytes and metamyelocytes) > 1% indicates that a LEFT SHIFT is Present. LDL calc ser/plasOrdered By: Safia Ruelas on 09-17-2024 Cholesterol in LDL [Mass/Vol] 120 mg/dL [facility] Comment on above: Pnitnxvxfz=439-274 m g/dL & Higher Bqvz=735 mg/dL or greater MCV (mean corpuscular volume ) determinationOrdered By: Safia Ruelas on 09-17-2024 MCV (RBC) [Entitic vol] 91.7 fL 81-99 [facility] Mean corpuscular hemoglobin (MCH) determinationOrdered By: Safia Ruelas on 09-17-2024 MCH (RBC) [Entitic mass] 29.8 pg 27.0-32.0 [facility] Mean corpuscular hemoglobin concentration (MCHC) determinationOrdered By: Safia Ruelas on 09-17-2024 MCHC (RBC) [Mass/Vol] 32.5 g/dL 32-36 [facility] Mean platelet volume determi nationOrdered By: Safia Ruelas on 09-17-2024 Platelet mean volume (Bld) [Entitic vol] 11.4 fL 6.2-12.0 [facility] Monocyte percentageOrdered B y: Safia Ruelas on 09-17-2024 Monocytes/100 WBC (Bld) 8.5 % 0-10 [facility] Neutrophil percentageOrdered By: Safia Ruelas on 09-17-2024 Neutrophils/100 WBC (Bld) 60.7 % 47-70 [facility] Nucleated red blood cell per centageOrdered By: Safia Ruelas on 09-17-2024 Nucleated RBC/100 WBC (Bld) [Ratio] 0 % 0-5 [facility] Platelet countOrdered By: Balbir Ruelas on 09-17-2024 Platelets (Bld) [#/Vol] 311 10*3/uL 150-450 [facility] Potassium measurement (mass/ volume)Ordered By: Safia Ruelas on 09-17-2024 Potassium (Unsp spec) [Mass/Vol] 4.1 mmol/L 3.3-5.1 [facility] RBC Auto (Bld) [#/Vol]Ordere d By: Safia Ruelas on 09-17-2024 RBC (Bld) [#/Vol] 4.23 10*6/uL 4.2-5.4 [facility] Screening total cholesterol/ high density lipoprotein (HDL) cholesterol ratioOrdered By: Safia Ruelas on 09-17-2024 Cholesterol.total/Alta sterol in HDL [Mass ratio] 5.38 {ratio} [facility] Serum creatinine measurement (mass/volume)Ordered By: Safia Ruelas on 09-17-2024 Creatinine [Mass/Vol] 0.86 mg/dL 0.70-1.20 [facility] Serum glucose measurement (m ass/volume)Ordered By: Safia Ruelas on 09-17-2024 Glucose [Mass/Vol] 216 mg/dL High 70-99 [facility] Serum or plasma calcium dayna urement (mass/volume)Ordered By: Safia Ruelas on 09-17-2024 Calcium [Mass/Vol] 9.4 mg/dL 7.6-11.0 [facility] Serum or plasma cholesterol in HDL measurement (mass/volume)Ordered By: Safia Ruelas on 09-17-2024 Cholesterol in HDL [Mass/Vol] 33 mg/dL Low >40 [facility] Comment on above: National Cholesterol Education Program (NCEP) guidelines:<40 mg/dL: Low HDL-cholesterol (major risk factor for CHD)>= 60 mg/dL: High HDL-cholesterol (negative risk factor for CHD)HDL-cholesterol is affected by a number of factors, e.g. smoking, exercise, hormones, sex and age. Serum or plasma cholesterol measurement (mass/volume)Ordered By: Safia Ruelas on 09-17-2024 Cholesterol [Mass/Vol] 175 mg/dL <201 [facility] Comment on above: Cholesterol level, D esirable <200 mg/dLBorderline high cholesterol 200-239 mg/dLHigh cholesterol >=240 mg/dLRecommendations of the NCEP Adult Treatment Panel for the following risk-cutoff thresholds for the [place] population. Serum or plasma urea nitroge n measurement (mass/volume)Ordered By: Balbirsherry Ruelas on 09-17-2024 Urea nitrogen [Mass/Vol] 39 mg/dL High 4-19 [facility] Sodium levelOrdered By: Leonides lazaro Cheobonimelanie on 09-17-2024 Sodium [Moles/Vol] 134 mmol/L 133-145 [facility] TSH DL <= 0.005 mIU/L QnOrde red By: Bandarskye Griderquyen on 09-17-2024 TSH Qn 3.500 uIU/mL 0.300-4.200 [facility] Triglycerides measurementOrd ered By: Balbirjean mariedesireeskye Griderbonimelanie on 09-17-2024 Triglyceride [Mass/Vol] 111 mg/dL <199 [facility] Comment on above: The drugs N-Acetylcy steine and Metamizole may falsely depress this assay. Normal range: <150 mg/dLBorderline High: 150-199 mg/dLHigh: 200-499 mg/dLVery High: >500 mg/dL White blood cell (WBC) count Ordered By: Safia Griderbonimelanie on 09-17-2024 WBC (Bld) [#/Vol] 9.6 10*3/uL 4.4-11.0 [facility] Absolute lymphocyte countOrd ered By: Safia Griderbonimelanie on 09-10-2024 Lymphocytes Auto (Unsp spec) [#/Vol] 2.11 10*3/uL 0.83-4.51 [facility] Absolute neutrophil countOrd ered By: Bandarskye Griderbonimelanie on 09-10-2024 Neutrophils (Bld) [#/Vol] 8.1 10*3/uL High 2.0-7.7 [facility] Anion gap in Serum or Plasma Ordered By: Balbirjean mariedesireeskye Griderbonimelanie on 09-10-2024 Anion gap [Moles/Vol] 13 mmol/L 5-15 [facility] Automated lymphocyte count a s percentage of total leukocytesOrdered By: Safia Ruelas on 09-10-2024 Lymphocytes/100 WBC Auto (Unsp spec) 17.9 % Low 19-41 [facility] BUN/creatinine ratioOrdered By: Safia Ruelas on 09-10-2024 Urea nitrogen/Creatinine [Mass ratio] 29.1 mg/mg High 10-20 [facility] Basophil percentageOrdered B y: Leonidesdesireeskye Griderbonimelanie on 09-10-2024 Basophils/100 WBC (Bld) 0.3 % 0-1 [facility] Bilirubin, totalOrdered By: Safia Griderbonimelanie on 09-10-2024 Bilirubin [Mass/Vol] 0.55 mg/dL 0.00-1.30 [facility] Carbon dioxide, total [Moles /volume] in Central venous bloodOrdered By: Safia Ruelas on 09-10-2024 CO2 [Moles/Vol] 23.6 mmol/L 21.0-32.0 [facility] Chloride assayOrdered By: Balbir jean marieojsé antonio Ruelas on 09-10-2024 Chloride [Moles/Vol] 97 mmol/L Low 98-108 [facility] Eosinophil percentageOrdered By: Safia Cheobonimelanie on 09-10-2024 Eosinophils/100 WBC (Bld) 0.5 % 0-5 [facility] Erythrocyte distribution wid th ratioOrdered By: Safia Ruelas on 09-10-2024 Erythrocyte distribution width (RBC) [Ratio] 13.4 % 11.6-14.6 [facility] Erythrocyte distribution wid th standard deviationOrdered By: Safia Ruelas on 09-10-2024 Erythrocyte distribution width (RBC) [Ratio] 45.2 fl High 35.1-43.9 [facility] Glomerular filtration rate ( GFR) estimation/1.73 sq m using serum, plasma, or whole bOrdered By: Safia Ruelas on 09-10-2024 GFR/1.73 sq M.predicted among non-blacks MDRD (S/P/Bld) [Vol rate/Area] 59 mL/min/{1.73_m2} Low >60 [facility] Comment on above: mL/min/1.73m2 CKD-EP I Creatinine Equation (2020) Hematocrit Auto (Bld) [Volum e fraction]Ordered By: Safia Ruelas on 09-10-2024 Hematocrit (Bld) [Volume fraction] 41.8 % 37-47 [facility] Hemoglobin measurementOrdere d By: Safia Ruelas on 09-10-2024 Hemoglobin (Bld) [Mass/Vol] 13.4 g/dL 12.0-15.0 [facility] Immature granulocytes/100 WB C Auto (Bld)Ordered By: Safia Ruelas on 09-10-2024 Immature granulocytes/100 WBC (Bld) 0.800 % 0.0-0.9 [facility] Comment on above: IG% - Immature Granu locytes (promyelocytes, myelocytes and metamyelocytes) > 1% indicates that a LEFT SHIFT is Present. Laboratory - Chemistry and C hemistry - challengeOrdered By: Safia Ruelas on 09-10-2024 AST [Catalytic activity/Vol] 21 U/L <32 [facility] MCV (mean corpuscular volume ) determinationOrdered By: Safia Ruelas on 09-10-2024 MCV (RBC) [Entitic vol] 92.5 fL 81-99 [facility] Mean corpuscular hemoglobin (MCH) determinationOrdered By: jean mariemeyersvilleskye Ruelas on 09-10-2024 MCH (RBC) [Entitic mass] 29.6 pg 27.0-32.0 [facility] Mean corpuscular hemoglobin concentration (MCHC) determinationOrdered By: Safia Ruelas on 09-10-2024 MCHC (RBC) [Mass/Vol] 32.1 g/dL 32-36 [facility] Mean platelet volume determi nationOrdered By: Safia Ruelas on 09-10-2024 Platelet mean volume (Bld) [Entitic vol] 12.6 fL High 6.2-12.0 [facility] Monocyte percentageOrdered B y: Safia Ruelas on 09-10-2024 Monocytes/100 WBC (Bld) 12.3 % High 0-10 [facility] Neutrophil percentageOrdered By: Safia Ruelas on 09-10-2024 Neutrophils/100 WBC (Bld) 68.2 % 47-70 [facility] No Panel InformationOrdered By: Safia Ruelas on 09-10-2024 21 U/L <32 [facility] Nucleated red blood cell per centageOrdered By: Safia Ruelas on 09-10-2024 Nucleated RBC/100 WBC (Bld) [Ratio] 0 % 0-5 [facility] Platelet countOrdered By: Balbir Ruelas on 09-10-2024 Platelets (Bld) [#/Vol] 190 10*3/uL 150-450 [facility] Potassium measurement (mass/ volume)Ordered By: Safia Ruelas on 09-10-2024 Potassium (Unsp spec) [Mass/Vol] 4.3 mmol/L 3.3-5.1 [facility] RBC Auto (Bld) [#/Vol]Ordere d By: Safia Ruelas on 09-10-2024 RBC (Bld) [#/Vol] 4.52 10*6/uL 4.2-5.4 [facility] Serum creatinine measurement (mass/volume)Ordered By: Safia Ruelas on 09-10-2024 Creatinine [Mass/Vol] 0.98 mg/dL 0.70-1.20 [facility] Serum globulin measurementOr dered By: Safia Ruelas 09-10-2024 Globulin (S) [Mass/Vol] 3.3 g/dL 2.2-4.2 [facility] Serum glucose measurement (m ass/volume)Ordered By: Safia Ruelas 09-10-2024 Glucose [Mass/Vol] 181 mg/dL High 70-99 [facility] Serum or plasma alanine raymundo otransferase (ALT) measurementOrdered By: Safia Ruelas 09-10-2024 ALT [Catalytic activity/Vol] 26 U/L <35 [facility] Serum or plasma albumin dayna urement (mass/volume)Ordered By: Safia Ruelas 09-10-2024 Albumin [Mass/Vol] 3.4 g/dL 3.4-4.8 [facility] Serum or plasma albumin/glob ulin mass ratioOrdered By: Safia Ruelas on 04-29-2025 Albumin/Globulin [Mass ratio] 1.0 {ratio} 0.9-2.4 [facility] Serum or plasma alkaline hannah sphatase measurementOrdered By: Safia Ruelas on 09-10-2024 ALP [Catalytic activity/Vol] 114 U/L High 35-104 [facility] [facility] Serum or plasma calcium dayna urement (mass/volume)Ordered By: Safia Ruelas on 09-10-2024 Calcium [Mass/Vol] 9.3 mg/dL 7.6-11.0 [facility] Serum or plasma urea nitroge n measurement (mass/volume)Ordered By: Safia Ruelas on 09-10-2024 Urea nitrogen [Mass/Vol] 29 mg/dL High 4-19 [facility] Sodium levelOrdered By: Leonides jiménezradha Jessenia on 09-10-2024 Sodium [Moles/Vol] 133 mmol/L 133-145 [facility] Total proteinOrdered By: Augusto Ruelas on 09-10-2024 Protein [Mass/Vol] 6.7 g/dL 5.9-8.4 [facility] White blood cell (WBC) count Ordered By: Safia Ruelas on 09-10-2024 WBC (Bld) [#/Vol] 11.8 10*3/uL High 4.4-11.0 [facility] LABORATORYOrdered By: Abigail Smith on 09-09-2024 Glucose [Mass/Vol] 212 mg/dL High 82 - 115 mg/dL [facility] Work Phone: Glucose [Mass/Vol] 226 mg/dL High 82 - 115 mg/dL [facility] Work Phone: LABORATORYOrdered By: Zoila Zarco on 09-08-2024 Glucose [Mass/Vol] 149 mg/dL High 82 - 115 mg/dL [facility] Work Phone: LABORATORYOrdered By: Rob Palmer on 09-08-2024 Blood Glucose Testing Reason Routine (09/08/24 6:16 PM) [facility] Work Phone: Blood Glucose Testing Reason Routine (09/08/24 11:58 AM) [facility] Work Phone: LABORATORYOrdered By: Rob Palmer on 09-07-2024 Blood Glucose Testing Reason Routine (09/07/24 4:46 PM) [facility] Work Phone: .Auto Diffon 09-03-2024 Basophil, Absolute 0.1 10 3/mcL Normal 0.0-0.3 [facility] Comment on above: Performed By: #### A DIFF, CBC, ANEU, GFR, BMP #### [address] [address] Basophils/100 WBC (Bld) 1.0 % Normal 0.0-2.[address] [facility] Comment on above: Performed By: #### A DIFF, CBC, ANEU, GFR, BMP #### [address] [address] Eosinophil, Absolute 0.2 10 3/mcL Normal 0.0-0.7 [facility] Comment on above: Performed By: #### A DIFF, CBC, ANEU, GFR, BMP #### [address] [address] Eosinophils/100 WBC (Bld) 3.2 % Normal 0.0-6.[address] [facility] Comment on above: Performed By: #### A DIFF, CBC, ANEU, GFR, BMP #### [address] [address] Lymphocyte, Absolute 2.0 10 3/mcL Normal 0.9-4.3 [facility] Comment on above: Performed By: #### A DIFF, CBC, ANEU, GFR, BMP #### [address] [address] Lymphocytes/100 WBC (Bld) 26.6 % Normal 20.0-40.[address] [facility] Comment on above: Performed By: #### A DIFF, CBC, ANEU, GFR, BMP #### [address] [address] Monocyte, Absolute 0.7 10 3/mcL Normal 0.1-1.4 [facility] Comment on above: Performed By: #### A DIFF, CBC, ANEU, GFR, BMP #### [address] [address] Monocytes/100 WBC (Bld) 9.7 % Normal 2.0-13.[address] [facility] Comment on above: Performed By: #### A DIFF, CBC, ANEU, GFR, BMP #### [address] [address] Neutrophils/100 WBC (Bld) 59.5 % Normal 50.0-75.[address] [facility] Comment on above: Performed By: #### A DIFF, CBC, ANEU, GFR, BMP #### [address] [address] .GFRon 09-03-2024 Estimated Glomerular Filtration Rate 57 ml/min/1.73sqm Normal [facility] MA[facility] Comment on above: Result [...] A DIFF, CBC, ANEU, GFR, BMP #### [address] [address] .NEUABSon 09-03-2024 Neutrophil, Absolute 4.5 10 3/mcL Normal 2.3-8.1 [facility] Comment on above: Performed By: #### A DIFF, CBC, ANEU, GFR, BMP #### [address] [address] B12on 09-03-2024 Cobalamin (Vitamin B12) [Mass/Vol] 834 pg/mL Normal 211-[address] [facility] Comment on above: Performed By: #### A DIFF, CBC, ANEU, GFR, BMP #### [place] [address] CBCon 09-03-2024 Erythrocyte distribution width (RBC) [Ratio] 14.7 % Normal 11.5-15.[address] [facility] Comment on above: Performed By: #### A DIFF, CBC, ANEU, GFR, BMP #### [place] [address] Hematocrit (Bld) [Volume fraction] 39.7 % Normal 34.0-46.[address] [facility] Comment on above: Performed By: #### A DIFF, CBC, ANEU, GFR, BMP #### [place] [address] Hgb 13.2 G/dL Normal 12.0-16.[address] [facility] MAIN Comment on above: Performed By: #### A DIFF, CBC, ANEU, GFR, BMP #### [place] [address] MCH (RBC) [Entitic mass] 30.6 pg Normal 27.0-33.[address] [facility] MAIN Comment on above: Performed By: #### A DIFF, CBC, ANEU, GFR, BMP #### [place] [address] MCHC 33.3 G/dL Normal 32.0-36.[address] [facility] Comment on above: Performed By: #### A DIFF, CBC, ANEU, GFR, BMP #### [place] [address] MCV (RBC) [Entitic vol] 91.9 fL Normal 80.0-99.[address] [facility] Comment on above: Performed By: #### A DIFF, CBC, ANEU, GFR, BMP #### [place] [address] Platelet 228 10 3/mcL Normal 150-[address] [facility] MA[facility] Comment on above: Performed By: #### A DIFF, CBC, ANEU, GFR, BMP #### [place] [address] Platelet mean volume (Bld) [Entitic vol] 10.1 fL Normal 6.6-10.[address] [facility] Comment on above: Performed By: #### A DIFF, CBC, ANEU, GFR, BMP #### [address] [address] RBC 4.32 10 6/mcL Normal 4.10-5.[address] [facility] Comment on above: Performed By: #### A DIFF, CBC, ANEU, GFR, BMP #### [place] [address] WBC 7.6 10 3/mcL Normal 4.5-10.[address] [facility] Comment on above: Performed By: #### A DIFF, CBC, ANEU, GFR, BMP #### [place] [id number] CMPon 09-03-2024 Albumin Level 3.0 G/dL Low 3.2-4.[address] [facility] Comment on above: Performed By: #### A DIFF, CBC, ANEU, GFR, BMP #### [place] [address] Albumin/Globulin [Mass ratio] 0.9 {ratio} Normal 0.9-1.[address] [facility] Comment on above: Performed By: #### A DIFF, CBC, ANEU, GFR, BMP #### [place] [address] ALP [Catalytic activity/Vol] 115 U/L Normal 38-[address] [facility] Comment on above: Performed By: #### A DIFF, CBC, ANEU, GFR, BMP #### [place] [address] ALT [Catalytic activity/Vol] 37 U/L Normal 10-[address] [facility] Comment on above: Performed By: #### A DIFF, CBC, ANEU, GFR, BMP #### [place] [id number] AST [Catalytic activity/Vol] 31 U/L Normal 8-[address] [facility] Comment on above: Performed By: #### A DIFF, CBC, ANEU, GFR, BMP #### [place] [address] Bili Total 0.50 mg/dL Normal 0.20-1.[address] [facility] Comment on above: Result Comment: Use of this assay is not recommended for patients undergoing treatment with eltrombopag due to the potential for falsely elevated results. Performed By: #### A DIFF, CBC, ANEU, GFR, BMP #### [address] [address] BUN/Creatinine Ratio 29.7 ratio High 10.0-22.0 [facility] Comment on above: Performed By: #### A DIFF, CBC, ANEU, GFR, BMP #### [address] [address] Calcium [Mass/Vol] 9.6 mg/dL Normal 8.7-10.4 [facility] Comment on above: Performed By: #### A DIFF, CBC, ANEU, GFR, BMP #### [address] [address] Chloride [Moles/Vol] 101 mmol/L Normal 98-110 [facility] Comment on above: Performed By: #### A DIFF, CBC, ANEU, GFR, BMP #### [address] [address] CO2 [Moles/Vol] 27 mmol/L Normal 22-[address] [facility] MAIN Comment on above: Performed By: #### A DIFF, CBC, ANEU, GFR, BMP #### [address] [address] Creatinine [Mass/Vol] 1.01 mg/dL Normal 0.50-1.20 [facility] Comment on above: Result Comment: Test ing performed on [employer] analyzer using enzymatic creatinine methodology. Performed By: #### A DIFF, CBC, ANEU, GFR, BMP #### [address] [address] Electrolyte Balance 10.0 mEq/L Normal 4.0-15.0 [facility] MAIN Comment on above: Performed By: #### A DIFF, CBC, ANEU, GFR, BMP #### [address] [address] Globulin 3.4 G/dL Normal 1.5-3.[address] [facility] Comment on above: Performed By: #### A DIFF, CBC, ANEU, GFR, BMP #### [address] [address] Glucose [Mass/Vol] 187 mg/dL High 82-115 [facility] Comment on above: Performed By: #### A DIFF, CBC, ANEU, GFR, BMP #### [address] [address] Potassium [Moles/Vol] 4.6 mmol/L Normal 3.5-5.0 [facility] Comment on above: Performed By: #### A DIFF, CBC, ANEU, GFR, BMP #### [address] [address] Sodium [Moles/Vol] 138 mmol/L Normal 136-145 [facility] Comment on above: Performed By: #### A DIFF, CBC, ANEU, GFR, BMP #### [address] [address] Total Protein 6.4 G/dL Normal 5.7-8.[address] [facility] Comment on above: Performed By: #### A DIFF, CBC, ANEU, GFR, BMP #### [address] [address] Urea nitrogen [Mass/Vol] 30.0 mg/dL High 8.0-22.[address] [facility] Comment on above: Performed By: #### A DIFF, CBC, ANEU, GFR, BMP #### [address] [address] LABORATORYOrdered By: Ann Carrillo on 09-03-2024 Glucose [Mass/Vol] 270 mg/dL [facility] Work Phone: LABORATORYOrdered By: SYSTEM SYSTEM [...] above: Interpretive Data: T esting performed on [employer] analyzer using enzymatic creatinine methodology. Electrolyte Balance [...] TSHon 09-03-2024 TSH 3.920 mIU/mL Normal 0.550-4.[address] [facility] MAIN Comment on above: Performed By: #### A DIFF, CBC, ANEU, GFR, BMP #### [place] [address] CT HEAD OR BRAIN W/O CONTRAS Ton [...] Date: 09/02/2024 3:10:44 PM Ordering Provider: SILVINO SCHEATZLE [facility]IN [place] 08-30-2024 RANDEE Telephone (FAMPWS) LINDSAY ACUNA ([id number]) 1945 F Date Time Provider Department 08/30/24 KAMERON CARUSO During your visit today, we recorded the following information about you: Jaiden Paulino, RN 08/30/2024 9:11 AM Signed Marya- [facility] reports patient was in [facility] with dx: stroke, and transferred to [facility]. Pt will be discharged from [facility] on 09/07/24 to home with [facility] SN PT OT [facility]. Asking if pcp agreeable to follow for C. Please phone Marya with verbal: [phone] Mj Glover APRN.GARRETT 08/30/2024 9:19 AM Signed Please let know that Dr. Caruso's team will follow orders. Okay to proceed. Mj Glover APRN.Fouzia Reynoso LPN 08/30/2024 10:09 AM Signed Marya with [facility] notified. Allergies As of Date: 08/30/2024 Noted Allergy Reaction BENZOCAINE 07/08/2005 2 - Rash COCAINE 05/28/2008 Comments: Inverted T PERFUMES 07/08/2005 12 - Shortness of Breath Comments: coughes and chokes SULFA (SULFONAMIDE ANTIBIOTICS) 07/08/2005 5 - Intolerance Date Reviewed: 06/26/2024 Reviewed by: Bret Arambula LPN - Fully Assessed Reason for Visit: [facility] requesting verbal agree to follow [Other] Prescriptions [...] daily with breakfast. - blood sugar diagnostic (DreamNotesTOUCH ULTRA TEST) test strip Test Blood Sugar one times daily Dx: E11.29 Insulin: No - lancets (DreamNotesTOUCH DELICA PLUS LANCET) 30 gauge Test blood [...] Status:Closed by FOUZIA MILLER on 08/30/24 Normal [facility] .Auto Diffon 08-26-2024 Basophil, Absolute 0.1 10 3/mcL Normal 0.0-0.3 [facility] Comment on above: Performed By: #### A DIFF, CBC, ANEU, GFR, BMP #### [address] [address] Basophils/100 WBC (Bld) 1.0 % Normal 0.0-2.[address] [facility] MAIN Comment on above: Performed By: #### A DIFF, CBC, ANEU, GFR, BMP #### [address] [address] Eosinophil, Absolute 0.3 10 3/mcL Normal 0.0-0.7 [facility] Comment on above: Performed By: #### A DIFF, CBC, ANEU, GFR, BMP #### [address] [address] Eosinophils/100 WBC (Bld) 4.2 % Normal 0.0-6.[address] [facility] Comment on above: Performed By: #### A DIFF, CBC, ANEU, GFR, BMP #### [address] [address] Lymphocyte, Absolute 2.2 10 3/mcL Normal 0.9-4.3 [facility] Comment on above: Performed By: #### A DIFF, CBC, ANEU, GFR, BMP #### [address] [address] Lymphocytes/100 WBC (Bld) 26.3 % Normal 20.0-40.[address] [facility] Comment on above: Performed By: #### A DIFF, CBC, ANEU, GFR, BMP #### [address] [address] Monocyte, Absolute 0.9 10 3/mcL Normal 0.1-1.4 [facility] Comment on above: Performed By: #### A DIFF, CBC, ANEU, GFR, BMP #### [address] [address] Monocytes/100 WBC (Bld) 11.4 % Normal 2.0-13.[address] [facility] Comment on above: Performed By: #### A DIFF, CBC, ANEU, GFR, BMP #### [address] [address] Neutrophils/100 WBC (Bld) 57.1 % Normal 50.0-75.[address] [facility] Comment on above: Performed By: #### A DIFF, CBC, ANEU, GFR, BMP #### [address] [address] .GFRon 08-26-2024 Estimated Glomerular Filtration Rate 59 ml/min/1.73sqm Normal [facility] Comment on above: Result [...] A DIFF, CBC, ANEU, GFR, BMP #### [address] [address] .NEUABSon 08-26-2024 Neutrophil, Absolute 4.7 10 3/mcL Normal 2.3-8.1 [facility] Comment on above: Performed By: #### A DIFF, CBC, ANEU, GFR, BMP #### [address] [address] BMPon 08-26-2024 BUN/Creatinine Ratio 35.1 ratio High 10.0-22.0 [facility] Comment on above: Performed By: #### A DIFF, CBC, ANEU, GFR, BMP #### [address] [address] Calcium [Mass/Vol] 9.8 mg/dL Normal 8.7-10.4 [facility] Comment on above: Performed By: #### A DIFF, CBC, ANEU, GFR, BMP #### [address] [address] Chloride [Moles/Vol] 98 mmol/L Normal 98-110 [facility] Comment on above: Performed By: #### A DIFF, CBC, ANEU, GFR, BMP #### [address] [address] CO2 [Moles/Vol] 25 mmol/L Normal 22-[address] [facility] Comment on above: Performed By: #### A DIFF, CBC, ANEU, GFR, BMP #### [address] [address] Creatinine [Mass/Vol] 0.97 mg/dL Normal 0.50-1.20 [facility] Comment on above: Result Comment: Test ing performed on [employer] analyzer using enzymatic creatinine methodology. Performed By: #### A DIFF, CBC, ANEU, GFR, BMP #### [address] [address] Electrolyte Balance 12.0 mEq/L Normal 4.0-15.0 [facility] MAIN Comment on above: Performed By: #### A DIFF, CBC, ANEU, GFR, BMP #### [address] [address] Glucose [Mass/Vol] 160 mg/dL High 82-115 [facility] Comment on above: Performed By: #### A DIFF, CBC, ANEU, GFR, BMP #### [address] [address] Potassium [Moles/Vol] 4.7 mmol/L Normal 3.5-5.0 [facility] Comment on above: Result Comment: Spec imen slightly hemolyzed. Performed By: #### A DIFF, CBC, ANEU, GFR, BMP #### [address] [address] Sodium [Moles/Vol] 135 mmol/L Low 136-145 [facility] Comment on above: Performed By: #### A DIFF, CBC, ANEU, GFR, BMP #### [place] [address] Urea nitrogen [Mass/Vol] 34.0 mg/dL High 8.0-22.[address] [facility] Comment on above: Performed By: #### A DIFF, CBC, ANEU, GFR, BMP #### [place] [id number] CBCon 08-26-2024 Erythrocyte distribution width (RBC) [Ratio] 14.0 % Normal 11.5-15.[address] [facility] MA[facility] Comment on above: Performed By: #### A DIFF, CBC, ANEU, GFR, BMP #### [place] [address] Hematocrit (Bld) [Volume fraction] 41.0 % Normal 34.0-46.[address] [facility] Comment on above: Performed By: #### A DIFF, CBC, ANEU, GFR, BMP #### [place] [address] Hgb 13.4 G/dL Normal 12.0-16.[address] [facility] Comment on above: Performed By: #### A DIFF, CBC, ANEU, GFR, BMP #### [place] [address] MCH (RBC) [Entitic mass] 30.0 pg Normal 27.0-33.[address] [facility] Comment on above: Performed By: #### A DIFF, CBC, ANEU, GFR, BMP #### [place] [address] MCHC 32.7 G/dL Normal 32.0-36.[address] [facility] Comment on above: Performed By: #### A DIFF, CBC, ANEU, GFR, BMP #### [place] [address] MCV (RBC) [Entitic vol] 91.9 fL Normal 80.0-99.[address] [facility] Comment on above: Performed By: #### A DIFF, CBC, ANEU, GFR, BMP #### [place] [address] Platelet 297 10 3/mcL Normal 150-[address] [facility] Comment on above: Performed By: #### A DIFF, CBC, ANEU, GFR, BMP #### [place] [address] Platelet mean volume (Bld) [Entitic vol] 11.0 fL High 6.6-10.[address] [facility] Comment on above: Performed By: #### A DIFF, CBC, ANEU, GFR, BMP #### [place] [address] RBC 4.46 10 6/mcL Normal 4.10-5.[address] [facility] Comment on above: Performed By: #### A DIFF, CBC, ANEU, GFR, BMP #### [place] [address] WBC 8.3 10 3/mcL Normal 4.5-10.[address] [facility] Comment on above: Performed By: #### A DIFF, CBC, ANEU, GFR, BMP #### [place] [address] LABORATORYOrdered By: SYSTEM SYSTEM on 08-26-2024 Basophils [...] above: Interpretive Data: T esting performed on [employer] analyzer using enzymatic creatinine methodology. Electrolyte Balance [...] [facility] AND WRIST 6 [...] Sign Date: 08/25/2024 2:27:26 PM Ordering Provider: [facility] MAIN XR HUMERUS MINIMUM 2 VIEWS [...] Sign Date: 08/25/2024 2:26:11 PM Ordering Provider: [facility] MAIN XR SHOULDER MINIMUM 2 VIEWS [...] Sign Date: 08/25/2024 2:26:45 PM Ordering Provider: [facility] MAIN LABORATORYOrdered By: Kala lux on 08-23-2024 Glucose [Mass/Vol] 278 mg/dL [facility] [place] Work Phone: LABORATORYOrdered By: Kala lux on 08-22-2024 Glucose [Mass/Vol] 320 mg/dL [facility] Work Phone: A1Con 08-21-2024 Glucose [Mass/Vol] 194 mg/dL Normal [facility] Comment on above: Result Comment: Nancy mated Average Glucose calculated by equation ((28.7xA1C)-46.7) Estimated average glucose (eAG) is a calculated value from Hemoglobin A1C and is players club representative of the average blood glucose level in the last 2-3 month period. Normal range: less than 114 mg/dL Performed By: #### A 1C #### [address] [address] HbA1c (Bld) [Mass fraction] 8.4 % High 4.0-6.[address] [facility] Comment on above: Performed By: #### A 1C #### [address] [address] LABORATORYOrdered By: SYSTEM SYSTEM on 08-21-2024 Glucose [Mass/Vol] 194 mg/dL Invalid Interpretation Code Auto Chem SS Comment on above: Interpretive Data: E stimated average glucose (eAG) is a calculated value from Hemoglobin A1C and is players club representative of the average blood glucose level in the last 2-3 month period. Normal range: less than 114 mg/dL HbA1c (Bld) [Mass fraction] 8.4 % High 4.0 - 6.0 % AH Auto Chem SS .Auto Diffon 08-20-2024 Basophil, Absolute 0.1 10 3/mcL Normal 0.0-0.3 [facility] Comment on above: Performed By: #### B MP, ADIFF, CBC, GFR, ANEU #### [address] [address] Basophils/100 WBC (Bld) 1.1 % Normal 0.0-2.[address] [facility] MA[facility] Comment on above: Performed By: #### B MP, ADIFF, CBC, GFR, ANEU #### [address] [address] Eosinophil, Absolute 0.3 10 3/mcL Normal 0.0-0.7 [facility] Comment on above: Performed By: #### B MP, ADIFF, CBC, GFR, ANEU #### [address] [address] Eosinophils/100 WBC (Bld) 3.6 % Normal 0.0-6.[address] [facility] Comment on above: Performed By: #### B MP, ADIFF, CBC, GFR, ANEU #### [address] [address] Lymphocyte, Absolute 1.7 10 3/mcL Normal 0.9-4.3 [facility] Comment on above: Performed By: #### B MP, ADIFF, CBC, GFR, ANEU #### [address] [address] Lymphocytes/100 WBC (Bld) 20.8 % Normal 20.0-40.[address] [facility] Comment on above: Performed By: #### B MP, ADIFF, CBC, GFR, ANEU #### [address] [address] Monocyte, Absolute 0.9 10 3/mcL Normal 0.1-1.4 [facility] Comment on above: Performed By: #### B MP, ADIFF, CBC, GFR, ANEU #### [address] [address] Monocytes/100 WBC (Bld) 11.4 % Normal 2.0-13.[address] [facility] MA[facility] Comment on above: Performed By: #### B MP, ADIFF, CBC, GFR, ANEU #### [address] [address] Neutrophils/100 WBC (Bld) 63.1 % Normal 50.0-75.[address] [facility] Comment on above: Performed By: #### B MP, ADIFF, CBC, GFR, ANEU #### [address] [address] .GFRon 08-20-2024 Estimated Glomerular Filtration Rate 55 ml/min/1.73sqm Normal [facility] Comment on above: Result [...] A DIFF, CBC, ANEU, GFR, BMP #### [address] [address] .NEUABSon 08-20-2024 Neutrophil, Absolute 5.1 10 3/mcL Normal 2.3-8.1 [facility] Comment on above: Performed By: #### B MP, ADIFF, CBC, GFR, ANEU #### [address] [address] BMPon 08-20-2024 BUN/Creatinine Ratio 29.8 ratio High 10.0-22.0 [facility] Comment on above: Performed By: #### B MP, ADIFF, CBC, GFR, ANEU #### [address] [address] Calcium [Mass/Vol] 9.8 mg/dL Normal 8.7-10.4 [facility] Comment on above: Performed By: #### B MP, ADIFF, CBC, GFR, ANEU #### [address] [address] Chloride [Moles/Vol] 95 mmol/L Low 98-110 [facility] Comment on above: Performed By: #### B MP, ADIFF, CBC, GFR, ANEU #### [address] [address] CO2 [Moles/Vol] 34 mmol/L High 22-[address] [facility] Comment on above: Performed By: #### B MP, ADIFF, CBC, GFR, ANEU #### [address] [address] Creatinine [Mass/Vol] 1.04 mg/dL Normal 0.50-1.20 [facility] Comment on above: Result Comment: Test ing performed on [employer] CH analyzer using enzymatic creatinine methodology. Performed By: #### B MP, ADIFF, CBC, GFR, ANEU #### [place] [id number] Electrolyte Balance 5.0 mEq/L Normal 4.0-15.0 [facility] Comment on above: Performed By: #### B MP, ADIFF, CBC, GFR, ANEU #### [place] [id number] Glucose [Mass/Vol] 244 mg/dL High 82-115 [facility] Comment on above: Performed By: #### B MP, ADIFF, CBC, GFR, ANEU #### [place] [id number] Potassium [Moles/Vol] 4.8 mmol/L Normal 3.5-5.0 [facility] Comment on above: Result Comment: Spec imen slightly hemolyzed. Performed By: #### B MP, ADIFF, CBC, GFR, ANEU #### [place] [address] Sodium [Moles/Vol] 134 mmol/L Low 136-145 [facility] Comment on above: Performed By: #### B MP, ADIFF, CBC, GFR, ANEU #### [place] [id number] Urea nitrogen [Mass/Vol] 31.0 mg/dL High 8.0-22.[address] [facility] Comment on above: Performed By: #### B MP, ADIFF, CBC, GFR, ANEU #### [address] [address] CBCon 08-20-2024 Erythrocyte distribution width (RBC) [Ratio] 14.0 % Normal 11.5-15.[address] [facility] Comment on above: Performed By: #### B MP, ADIFF, CBC, GFR, ANEU #### [place] [id number] Hematocrit (Bld) [Volume fraction] 41.9 % Normal 34.0-46.[address] [facility] Comment on above: Performed By: #### B MP, ADIFF, CBC, GFR, ANEU #### [place] [id number] Hgb 13.6 G/dL Normal 12.0-16.[address] [facility] Comment on above: Performed By: #### B MP, ADIFF, CBC, GFR, ANEU #### [place] [id number] MCH (RBC) [Entitic mass] 29.7 pg Normal 27.0-33.[address] [facility] Comment on above: Performed By: #### B MP, ADIFF, CBC, GFR, ANEU #### [place] [id number] MCHC 32.4 G/dL Normal 32.0-36.[address] [facility] Comment on above: Performed By: #### B MP, ADIFF, CBC, GFR, ANEU #### [place] [id number] MCV (RBC) [Entitic vol] 91.5 fL Normal 80.0-99.[address] [facility] Comment on above: Performed By: #### B MP, ADIFF, CBC, GFR, ANEU #### [place] [address] Platelet 301 10 3/mcL Normal 150-[address] [facility] Comment on above: Performed By: #### B MP, ADIFF, CBC, GFR, ANEU #### [place] [address] Platelet mean volume (Bld) [Entitic vol] 11.0 fL High 6.6-10.[address] [facility] Comment on above: Performed By: #### B MP, ADIFF, CBC, GFR, ANEU #### [place] [address] RBC 4.58 10 6/mcL Normal 4.10-5.[address] [facility] Comment on above: Performed By: #### B MP, ADIFF, CBC, GFR, ANEU #### [place] [id number] WBC 8.1 10 3/mcL Normal 4.5-10.[address] [facility] Comment on above: Performed By: #### B MP, ADIFF, CBC, GFR, ANEU #### [facility] [address] [place] [address] LABORATORYOrdered By: SYSTEM SYSTEM on 08-20-2024 Basophils (Bld) [#/Vol] 0.1 103/mcL Normal 0.0 - 0.3 10^3/mcL AH Workflow SS Basophils/100 WBC (Bld) 1.1 % Normal 0.0 - 2.5 % AH Workflow SS Calcium [Mass/Vol] 9.8 mg/dL Normal 8.7 - 10. 4 mg/dL AH ADM SS Chloride [Moles/Vol] 95 mmol/L Low 98 - 11 0 mEq/L AH ADM SS CO2 [Moles/Vol] 34 mmol/L High 22 - 32 mEq/L AH ADM SS Creatinine [Mass/Vol] 1.04 mg/dL Normal 0.50 - 1.20 mg/dL AH ADM SS Comment on above: Interpretive Data: T esting performed on [employer] CH analyzer using enzymatic creatinine methodology. Electrolyte [...] 08/18/2024 3:14:15 PM Ordering Provider: NANDO Anderson [facility] .Auto Diffon 08-16-2024 Basophil, Absolute 0.1 10 3/mcL Normal 0.0-0.3 [facility] Comment on above: Performed By: #### A DIFF, CBC, ANEU, GFR, BMP #### [address] [address] Basophils/100 WBC (Bld) 0.7 % Normal 0.0-2.[address] [facility] Comment on above: Performed By: #### A DIFF, CBC, ANEU, GFR, BMP #### [address] [address] Eosinophil, Absolute 0.3 10 3/mcL Normal 0.0-0.7 [facility] Comment on above: Performed By: #### A DIFF, CBC, ANEU, GFR, BMP #### [address] [address] Eosinophils/100 WBC (Bld) 2.1 % Normal 0.0-6.[address] [facility] Comment on above: Performed By: #### A DIFF, CBC, ANEU, GFR, BMP #### [address] [address] Lymphocyte, Absolute 1.9 10 3/mcL Normal 0.9-4.3 [facility] Comment on above: Performed By: #### A DIFF, CBC, ANEU, GFR, BMP #### [address] [address] Lymphocytes/100 WBC (Bld) 14.8 % Low 20.0-40.[address] [facility] Comment on above: Performed By: #### A DIFF, CBC, ANEU, GFR, BMP #### [address] [address] Monocyte, Absolute 1.2 10 3/mcL Normal 0.1-1.4 [facility] Comment on above: Performed By: #### A DIFF, CBC, ANEU, GFR, BMP #### [address] [address] Monocytes/100 WBC (Bld) 9.8 % Normal 2.0-13.[address] [facility] Comment on above: Performed By: #### A DIFF, CBC, ANEU, GFR, BMP #### [address] [address] Neutrophils/100 WBC (Bld) 72.6 % Normal 50.0-75.[address] [facility] Comment on above: Performed By: #### A DIFF, CBC, ANEU, GFR, BMP #### [address] [address] .GFRon 08-16-2024 Estimated Glomerular Filtration Rate 58 ml/min/1.73sqm Normal [facility] Comment on above: Result [...] A DIFF, CBC, ANEU, GFR, BMP #### [address] [address] .NEUABSon 08-16-2024 Neutrophil, Absolute 9.2 10 3/mcL High 2.3-8.1 [facility] Comment on above: Performed By: #### A DIFF, CBC, ANEU, GFR, BMP #### [place] [id number] BMPon 08-16-2024 BUN/Creatinine Ratio 34.3 ratio High 10.0-22.0 [facility] Comment on above: Performed By: #### A DIFF, CBC, ANEU, GFR, BMP #### [place] [address] Calcium [Mass/Vol] 9.0 mg/dL Normal 8.7-10.4 [facility] Comment on above: Performed By: #### A DIFF, CBC, ANEU, GFR, BMP #### [place] [address] Chloride [Moles/Vol] 100 mmol/L Normal 98-110 [facility] Comment on above: Performed By: #### A DIFF, CBC, ANEU, GFR, BMP #### [place] [address] CO2 [Moles/Vol] 30 mmol/L Normal 22-[address] [facility] Comment on above: Performed By: #### A DIFF, CBC, ANEU, GFR, BMP #### [place] [address] Creatinine [Mass/Vol] 0.99 mg/dL Normal 0.50-1.20 [facility] Comment on above: Result Comment: Test ing performed on [employer] analyzer using enzymatic creatinine methodology. Performed By: #### A DIFF, CBC, ANEU, GFR, BMP #### [place] [address] Electrolyte Balance 5.0 mEq/L Normal 4.0-15.0 [facility] Comment on above: Performed By: #### A DIFF, CBC, ANEU, GFR, BMP #### [place] [id number] Glucose [Mass/Vol] 259 mg/dL High 82-115 [facility] Comment on above: Performed By: #### A DIFF, CBC, ANEU, GFR, BMP #### [place] [id number] Potassium [Moles/Vol] 5.0 mmol/L Normal 3.5-5.0 [facility] Comment on above: Performed By: #### A DIFF, CBC, ANEU, GFR, BMP #### [place] [id number] Sodium [Moles/Vol] 135 mmol/L Low 136-145 [facility] Comment on above: Performed By: #### A DIFF, CBC, ANEU, GFR, BMP #### [place] [address] Urea nitrogen [Mass/Vol] 34.0 mg/dL High 8.0-22.[address] [facility] Comment on above: Performed By: #### A DIFF, CBC, ANEU, GFR, BMP #### [address] [address] CBCon 08-16-2024 Erythrocyte distribution width (RBC) [Ratio] 13.7 % Normal 11.5-15.[address] [facility] Comment on above: Performed By: #### A DIFF, CBC, ANEU, GFR, BMP #### [place] [id number] Hematocrit (Bld) [Volume fraction] 43.3 % Normal 34.0-46.[address] [facility] Comment on above: Performed By: #### A DIFF, CBC, ANEU, GFR, BMP #### [address] [address] Hgb 13.9 G/dL Normal 12.0-16.[address] [facility] Comment on above: Performed By: #### A DIFF, CBC, ANEU, GFR, BMP #### [place] [id number] MCH (RBC) [Entitic mass] 30.0 pg Normal 27.0-33.[address] [facility] Comment on above: Performed By: #### A DIFF, CBC, ANEU, GFR, BMP #### [address] [address] MCHC 32.1 G/dL Normal 32.0-36.[address] [facility] Comment on above: Performed By: #### A DIFF, CBC, ANEU, GFR, BMP #### [address] [address] MCV (RBC) [Entitic vol] 93.6 fL Normal 80.0-99.[address] [facility] Comment on above: Performed By: #### A DIFF, CBC, ANEU, GFR, BMP #### [address] [address] Platelet 230 10 3/mcL Normal 150-[address] [facility] Comment on above: Performed By: #### A DIFF, CBC, ANEU, GFR, BMP #### [place] [address] Platelet mean volume (Bld) [Entitic vol] 10.7 fL High 6.6-10.[address] [facility] Comment on above: Performed By: #### A DIFF, CBC, ANEU, GFR, BMP #### [address] [address] RBC 4.63 10 6/mcL Normal 4.10-5.[address] [facility] Comment on above: Performed By: #### A DIFF, CBC, ANEU, GFR, BMP #### [address] [address] WBC 12.7 10 3/mcL High 4.5-10.[address] [facility] Comment on above: Performed By: #### A DIFF, CBC, ANEU, GFR, BMP #### [address] [address] LABORATORYOrdered By: Marily Panda on 08-16-2024 Blood Glucose Interventions Administered agent to decrease blood sugar (08/16/24 12:23 PM) [employer] Work Phone: Blood Glucose Interventions Retest (08/16/24 10:15 AM) 6[employer] Work Phone: Bacteria identified Cx Nom ( Bld)on 08-15-2024 Bacteria identified Cx Nom (Unsp spec) NO GROWTH DAY 5 OF 5 [facility] CARDIAC RHYTHMon 08-15-2024 [facility] CBC,PLATELETSon 08-15-2024 Erythrocyte distribution width (RBC) [Ratio] 13.4 % 10.8 - 14.9 % [facility] Hematocrit (Bld) [Volume fraction] 43.8 % 34.9 - 44.3 % [facility] Hemoglobin (Bld) [Mass/Vol] 13.5 g/dL 11.4 - 15.2 g/dL [facility] Interpretation and review of laboratory results Abnormal [facility] MCH (RBC) [Entitic mass] 28.9 pg 25.9 - 33.9 pg [facility] MCHC (RBC) [Mass/Vol] 30.8 g/dL Low 31.4 - 35.9 g/dL [facility] MCV (RBC) [Entitic vol] 93.8 fL 79.6 - 97.7 fL [facility] Platelet mean volume (Bld) [Entitic vol] 12 fL 8.5 - 12.2 fL [facility] Platelets (Bld) [#/Vol] 252 10*3/uL 150 - 393 K/uL [facility] RBC (Bld) [#/Vol] 4.67 10*6/uL [facility] WBC (Bld) [#/Vol] 11.94 10*3/uL High 3.99 - 11.19 K/uL [facility] Hematocrit (Bld) [Volume fraction] 43.8 % Normal 34.9-44.3 [facility] Comment on above: Performed By: #### X M #### [facility] (DEFAULT) [address] [place] [address] Hemoglobin (Bld) [Mass/Vol] 13.5 g/dL Normal 11.4-15.2 [facility] Comment on above: Performed By: #### X M #### [facility] (DEFAULT) [address] [place] [address] MCV (RBC) [Entitic vol] 93.8 fL Normal 79.6-97.7 [facility] Comment on above: Performed By: #### X M #### [facility] (DEFAULT) [address] [place] [address] Mean Cell Hgb 28.9 pg Normal 25.9-33.9 [facility] Comment on above: Performed By: #### X M #### [facility] (DEFAULT) [address] [place] [address] Mean Cell Hgb Conc 30.8 g/dL Low 31.4-35.9 [facility] Comment on above: Performed By: #### X M #### [facility] (DEFAULT) [address] [place] [address] Platelet mean volume (Bld) [Entitic vol] 12.0 fL Normal 8.5-12.2 [facility] Comment on above: Performed By: #### X M #### [facility] (DEFAULT) [address] [place] [address] Platelets (Bld) [#/Vol] 252 10*3/uL Normal 150-393 [facility] Comment on above: Performed By: #### X M #### [facility] (DEFAULT) [address] [place] [address] RBC (Bld) [#/Vol] 4.67 10*6/uL Normal 3.91-5.04 [facility] Comment on above: Performed By: #### X M #### [facility] (DEFAULT) [address] [place] [address] RBC Distribution 13.4 % Normal 10.8-14.9 [facility] Comment on above: Performed By: #### X M #### [facility] (DEFAULT) [address] [place] [address] WBC (Bld) [#/Vol] 11.94 10*3/uL High 3.99-11.19 [facility] Comment on above: Performed By: #### X M #### [facility] (DEFAULT) [address] [place] [address] CHEM 7 (LYTES,BUN,CREA,GLUC) on 08-15-2024 Anion gap [Moles/Vol] 16 mmol/L 7 - 17 mmol/L [facility] Chloride [Moles/Vol] 99 mmol/L 98 - 10 8 mmol/L [facility] CO2 [Moles/Vol] 25 mmol/L 21 - 31 mmol/L [facility] Creatinine [Mass/Vol] 1.27 mg/dL High 0.50 - 1.20 mg/dL [facility] eGFR, CKD-EPI, Female 43 Low - PINF [facility] Glucose [Mass/Vol] 214 mg/dL High 70 - 179 mg/dL [facility] Interpretation and review of laboratory results Abnormal [facility] Osmolality Calc [Osmolality] 306 High [facility] Potassium [Moles/Vol] 4.8 mmol/L 3.5 - 5.0 mmol/L [facility] Sodium [Moles/Vol] 135 mmol/L 135 - 145 mmol/L [facility] Urea nitrogen [Mass/Vol] 51 mg/dL High 7 - 25 mg/dL [facility] Urea nitrogen/Creatinine [Mass ratio] 40 mg/mg [facility] Anion gap [Moles/Vol] 16 mmol/L Normal 7-17 [facility] Comment on above: Performed By: #### H [facility] #### [facility] (DEFAULT) [address] [place] [address] Chloride [Moles/Vol] 99 mmol/L Normal 98-108 [facility] Comment on above: Performed By: #### H EMOGC #### [facility] (DEFAULT) [address] [place] [address] CO2 [Moles/Vol] 25 mmol/L Normal 21-31 [facility] Comment on above: Performed By: #### H EMOGC #### [facility] (DEFAULT) [address] [place] [address] Creatinine [Mass/Vol] 1.27 mg/dL High 0.50-1.20 [facility] Comment on above: Performed By: #### H EMOGC #### [facility] (DEFAULT) [address] [place] [address] GFR/1.73 sq M.predicted among non-blacks MDRD (S/P/Bld) [Vol rate/Area] 43 mL/min/{1.73_m2} Low >=60 [facility] Comment on above: Result Comment: Repo rted eGFR is based on the CKD-EPI 2020 equation using creatinine, age, and sex. Performed By: #### H EMO #### [facility] (DEFAULT) [address] [place] [address] Glucose [Mass/Vol] 214 mg/dL High Nonfastin -179 mg/dL; Fastin-99 [facility] Comment on above: Performed By: #### H EMOGC #### [facility] (DEFAULT) [address] [place] [address] Osmolality [Osmolality] 306 mosm/kg High 278-305 [facility] Comment on above: Performed By: #### H EMOGC #### [facility] (DEFAULT) [address] [place] [address] Potassium [Moles/Vol] 4.8 mmol/L Normal 3.5-5.0 [facility] Comment on above: Performed By: #### H EMOGC #### [facility] (DEFAULT) [address] [place] [address] Sodium [Moles/Vol] 135 mmol/L Normal 135-145 [facility] Comment on above: Performed By: #### H EMOGC #### [facility] (DEFAULT) [address] [place] [address] Urea nitrogen [Mass/Vol] 51 mg/dL High 7-25 [facility] Comment on above: Performed By: #### H [facility] #### [facility] (DEFAULT) [address] [place] [address] Urea nitrogen/Creatinine [Mass ratio] 40 mg/mg Normal [facility] Comment on above: Performed By: #### H [facility] #### [facility] (DEFAULT) [address] [place] [address] GLUCOSE POCon 08-15-2024 Glucose [Mass/Vol] 190 mg/dL High 70 - 179 mg/dL [facility] Interpretation and review of laboratory results Abnormal [facility] POC Sample Type CAPBL [facility] Glucose [Mass/Vol] 146 mg/dL 70 - 179 mg/dL [facility] POC Sample Type CAPBL [facility] Glucose [Mass/Vol] 215 mg/dL High 70 - 179 mg/dL [facility] Interpretation and review of laboratory results Abnormal [facility] POC Sample Type CAPBL [facility] MAGNESIUMon 08-15-2024 Interpretation and review of laboratory results Normal [facility] Magnesium [Mass/Vol] 1.6 mg/dL 1.6 - 2 .6 mg/dL [facility] Magnesium [Mass/Vol] 1.6 mg/dL Normal 1.6-2.6 [facility] Comment on above: Performed By: #### H [facility] #### [facility] (DEFAULT) [address] [place] [address] No Panel Informationon 08-15 [facility] CBC,PLATELETSon 08-14-2024 Erythrocyte distribution width (RBC) [Ratio] 13.4 % 10.8 - 14.9 % [facility] Hematocrit (Bld) [Volume fraction] 47.9 % High 34.9 - 44.3 % [facility] Hemoglobin (Bld) [Mass/Vol] 14.3 g/dL 11.4 - 15.2 g/dL [facility] Interpretation and review of laboratory results Abnormal [facility] MCH (RBC) [Entitic mass] 29.3 pg 25.9 - 33.9 pg [facility] MCHC (RBC) [Mass/Vol] 29.9 g/dL Low 31.4 - 35.9 g/dL [facility] MCV (RBC) [Entitic vol] 98.2 fL High 79.6 - 97.7 fL [facility] Platelet mean volume (Bld) [Entitic vol] 11.3 fL 8.5 - 12.2 fL [facility] Platelets (Bld) [#/Vol] 229 10*3/uL 150 - 393 K/uL [facility] RBC (Bld) [#/Vol] 4.88 10*6/uL [facility] WBC (Bld) [#/Vol] 12.14 10*3/uL High 3.99 - 11.19 K/uL [facility] Hematocrit (Bld) [Volume fraction] 47.9 % High 34.9-44.3 [facility] Comment on above: Performed By: #### X M #### [facility] (DEFAULT) [address] [address] Hemoglobin (Bld) [Mass/Vol] 14.3 g/dL Normal 11.4-15.2 [facility] Comment on above: Performed By: #### X M #### [facility] (DEFAULT) [address] [address] MCV (RBC) [Entitic vol] 98.2 fL High 79.6-97.7 [facility] Comment on above: Performed By: #### X M #### [facility] (DEFAULT) [address] [address] Mean Cell Hgb 29.3 pg Normal 25.9-33.9 [facility] Comment on above: Performed By: #### X M #### [facility] (DEFAULT) [address] [address] Mean Cell Hgb Conc 29.9 g/dL Low 31.4-35.9 [facility] Comment on above: Performed By: #### X M #### [facility] (DEFAULT) [address] [address] Platelet mean volume (Bld) [Entitic vol] 11.3 fL Normal 8.5-12.2 [facility] Comment on above: Performed By: #### X M #### [facility] (DEFAULT) [address] [address] Platelets (Bld) [#/Vol] 229 10*3/uL Normal 150-393 [facility] Comment on above: Performed By: #### X M #### [facility] (DEFAULT) [address] [address] RBC (Bld) [#/Vol] 4.88 10*6/uL Normal 3.91-5.04 [facility] Comment on above: Performed By: #### X M #### [facility] (DEFAULT) [address] [address] RBC Distribution 13.4 % Normal 10.8-14.9 [facility] Comment on above: Performed By: #### X M #### [facility] (DEFAULT) [address] [place] [address] WBC (Bld) [#/Vol] 12.14 10*3/uL High 3.99-11.19 [facility] Comment on above: Performed By: #### X M #### [facility] (DEFAULT) [address] [address] CHEM 7 (LYTES,BUN,CREA,GLUC) on 08-14-2024 Anion gap [Moles/Vol] 16 mmol/L 7 - 17 mmol/L [facility] Chloride [Moles/Vol] 101 mmol/L 98 - 10 8 mmol/L [facility] CO2 [Moles/Vol] 23 mmol/L 21 - 31 mmol/L [facility] Creatinine [Mass/Vol] 1.15 mg/dL 0.50 - 1.20 mg/dL [facility] eGFR, CKD-EPI, Female 48 Low - PINF [facility] Glucose [Mass/Vol] 208 mg/dL High 70 - 179 mg/dL [facility] Interpretation and review of laboratory results Abnormal [facility] Osmolality Calc [Osmolality] 304 [facility] Potassium [Moles/Vol] 4.7 mmol/L 3.5 - 5.0 mmol/L [facility] Sodium [Moles/Vol] 135 mmol/L 135 - 145 mmol/L [facility] Urea nitrogen [Mass/Vol] 47 mg/dL High 7 - 25 mg/dL [facility] Urea nitrogen/Creatinine [Mass ratio] 41 mg/mg [facility] Anion gap [Moles/Vol] 16 mmol/L Normal 7-17 [facility] Comment on above: Performed By: #### B LDCULT #### [facility] (DEFAULT) [address] [address] Chloride [Moles/Vol] 101 mmol/L Normal 98-108 [facility] Comment on above: Performed By: #### B LDCULT #### [facility] (DEFAULT) [address] [address] CO2 [Moles/Vol] 23 mmol/L Normal 21-31 [facility] Comment on above: Performed By: #### B LDCULT #### [facility] (DEFAULT) [address] [address] Creatinine [Mass/Vol] 1.15 mg/dL Normal 0.50-1.20 [facility] Comment on above: Performed By: #### B LDCULT #### [facility] (DEFAULT) [address] [address] GFR/1.73 sq M.predicted among non-blacks MDRD (S/P/Bld) [Vol rate/Area] 48 mL/min/{1.73_m2} Low >=60 [facility] Comment on above: Result Comment: Repo rted eGFR is based on the CKD-EPI 2020 equation using creatinine, age, and sex. Performed By: #### B LDCULT #### [facility] (DEFAULT) [address] [place] [address] Glucose [Mass/Vol] 208 mg/dL High Nonfastin -179 mg/dL; Fastin-99 [facility] Comment on above: Performed By: #### B LDCULT #### [facility] (DEFAULT) [address] [place] [address] Osmolality [Osmolality] 304 mosm/kg Normal 278-305 [facility] Comment on above: Performed By: #### B LDCULT #### [facility] (DEFAULT) [address] [place] [address] Potassium [Moles/Vol] 4.7 mmol/L Normal 3.5-5.0 [facility] Comment on above: Performed By: #### B LDCULT #### [facility] (DEFAULT) [address] [place] [address] Sodium [Moles/Vol] 135 mmol/L Normal 135-145 [facility] Comment on above: Performed By: #### B LDCULT #### [facility] (DEFAULT) [address] [place] [address] Urea nitrogen [Mass/Vol] 47 mg/dL High 7-25 [facility] Comment on above: Performed By: #### B LDCULT #### [facility] (DEFAULT) [address] [place] [address] Urea nitrogen/Creatinine [Mass ratio] 41 mg/mg Normal [facility] Comment on above: Performed By: #### B LDCULT #### [facility] (DEFAULT) [address] [place] [address] GLUCOSE POCon 08-14-2024 Glucose [Mass/Vol] 204 mg/dL High 70 - 179 mg/dL [facility] Interpretation and review of laboratory results Abnormal [facility] POC Sample Type CAPBL [facility] Glucose [Mass/Vol] 264 mg/dL High 70 - 179 mg/dL [facility] Interpretation and review of laboratory results Abnormal [facility] POC Sample Type CAPBL [facility] Glucose [Mass/Vol] 189 mg/dL High 70 - 179 mg/dL [facility] Interpretation and review of laboratory results Abnormal [facility] POC Sample Type CAPBL [facility] MAGNESIUMon 08-14-2024 Interpretation and review of laboratory results Normal [facility] Magnesium [Mass/Vol] 1.6 mg/dL 1.6 - 2 .6 mg/dL [facility] Magnesium [Mass/Vol] 1.6 mg/dL Normal 1.6-2.6 [facility] Comment on above: Performed By: #### B LDCULT #### [facility] (DEFAULT) [address] [place] [address] No Panel Informationon 08-14 [facility] CBC,PLATELETSon 08-13-2024 Erythrocyte distribution width (RBC) [Ratio] 13.4 % 10.8 - 14.9 % [facility] Hematocrit (Bld) [Volume fraction] 45.7 % High 34.9 - 44.3 % [facility] Hemoglobin (Bld) [Mass/Vol] 14.3 g/dL 11.4 - 15.2 g/dL [facility] Interpretation and review of laboratory results Abnormal [facility] MCH (RBC) [Entitic mass] 29.5 pg 25.9 - 33.9 pg [facility] MCHC (RBC) [Mass/Vol] 31.3 g/dL Low 31.4 - 35.9 g/dL [facility] MCV (RBC) [Entitic vol] 94.2 fL 79.6 - 97.7 fL [facility] Platelet mean volume (Bld) [Entitic vol] 11.7 fL 8.5 - 12.2 fL [facility] Platelets (Bld) [#/Vol] 245 10*3/uL 150 - 393 K/uL [facility] RBC (Bld) [#/Vol] 4.85 10*6/uL [facility] WBC (Bld) [#/Vol] 12.02 10*3/uL High 3.99 - 11.19 K/uL [facility] Hematocrit (Bld) [Volume fraction] 45.7 % High 34.9-44.3 [facility] Comment on above: Performed By: #### H [facility] #### [facility] (DEFAULT) [address] [place] [address]142 Hemoglobin (Bld) [Mass/Vol] 14.3 g/dL Normal 11.4-15.2 [facility] Comment on above: Performed By: #### H [facility] #### [facility] (DEFAULT) [address] [place] [address] 72267 MCV (RBC) [Entitic vol] 94.2 fL Normal 79.6-97.7 O [facility] Comment on above: Performed By: #### H [facility] #### [facility] (DEFAULT) [address] [place] [address] 35217 Mean Cell Hgb 29.5 pg Normal 25.9-33.9 [facility] Comment on above: Performed By: #### H EMO #### [facility] (DEFAULT) [address] [place] [address] Mean Cell Hgb Conc 31.3 g/dL Low 31.4-35.9 [facility] Comment on above: Performed By: #### H EMOGC #### [facility] (DEFAULT) [address] [place] [address] 6[address]88 Platelet mean volume (Bld) [Entitic vol] 11.7 fL Normal 8.5-12.2 [facility] Comment on above: Performed By: #### H EMOGC #### [facility] (DEFAULT) [address] [place] [address] 11918 Platelets (Bld) [#/Vol] 245 10*3/uL Normal 150-393 [facility] Comment on above: Performed By: #### H EMOGC #### [facility] (DEFAULT) [address] [place] [address] 13877 RBC (Bld) [#/Vol] 4.85 10*6/uL Normal 3.91-5.04 [facility] Comment on above: Performed By: #### H EMO #### [facility] (DEFAULT) [address] [place] [address] 81523 RBC Distribution 13.4 % Normal 10.8-14.9 [facility] Comment on above: Performed By: #### H EMOGC #### [facility] (DEFAULT) [address] [place] [address] 56169 WBC (Bld) [#/Vol] 12.02 10*3/uL High 3.99-11.19 [facility] Comment on above: Performed By: #### H EMOGC #### [facility] (DEFAULT) [address] [place] [address] 34829 CHEM 7 (LYTES,BUN,CREA,GLUC) on 08-13-2024 Anion gap [Moles/Vol] 15 mmol/L 7 - 17 mmol/L [facility] Chloride [Moles/Vol] 104 mmol/L 98 - 10 8 mmol/L [facility] CO2 [Moles/Vol] 23 mmol/L 21 - 31 mmol/L [facility] Creatinine [Mass/Vol] 1.18 mg/dL 0.50 - 1.20 mg/dL [facility] eGFR, CKD-EPI, Female 47 Low - PINF [facility] Glucose [Mass/Vol] 225 mg/dL High 70 - 179 mg/dL [facility] Interpretation and review of laboratory results Abnormal [facility] Osmolality Calc [Osmolality] 311 High [facility] Potassium [Moles/Vol] 4.6 mmol/L 3.5 - 5.0 mmol/L [facility] Sodium [Moles/Vol] 137 mmol/L 135 - 145 mmol/L [facility] Urea nitrogen [Mass/Vol] 55 mg/dL High 7 - 25 mg/dL [facility] Urea nitrogen/Creatinine [Mass ratio] 47 mg/mg [facility] Anion gap [Moles/Vol] 15 mmol/L Normal 7-17 [facility] Comment on above: Performed By: #### H [facility] #### [facility] (DEFAULT) [address] [address] Chloride [Moles/Vol] 104 mmol/L Normal 98-108 [facility] Comment on above: Performed By: #### H [facility] #### [facility] (DEFAULT) [address] [address] CO2 [Moles/Vol] 23 mmol/L Normal 21-31 [facility] Comment on above: Performed By: #### H [facility] #### [facility] (DEFAULT) [address] [address] Creatinine [Mass/Vol] 1.18 mg/dL Normal 0.50-1.20 [facility] Comment on above: Performed By: #### H [facility] #### [facility] (DEFAULT) [address] [address] GFR/1.73 sq M.predicted among non-blacks MDRD (S/P/Bld) [Vol rate/Area] 47 mL/min/{1.73_m2} Low >=60 [facility] Comment on above: Result Comment: Repo rted eGFR is based on the CKD-EPI 2020 equation using creatinine, age, and sex. Performed By: #### H EMO #### [facility] (DEFAULT) [address] [place] [address]14 Glucose [Mass/Vol] 225 mg/dL High Nonfastin -179 mg/dL; Fastin-99 [facility] Comment on above: Performed By: #### H EMO #### [facility] (DEFAULT) [address] [place] [address] 67762 Osmolality [Osmolality] 311 mosm/kg High 278-305 [facility] Comment on above: Performed By: #### H [facility] #### [facility] (DEFAULT) [address] [place] [address] Potassium [Moles/Vol] 4.6 mmol/L Normal 3.5-5.0 [facility] Comment on above: Performed By: #### H [facility] #### [facility] (DEFAULT) [address] [place] [address] 92909 Sodium [Moles/Vol] 137 mmol/L Normal 135-145 [facility] Comment on above: Performed By: #### H [facility] #### [facility] (DEFAULT) [address] [place] [address]24 Urea nitrogen [Mass/Vol] 55 mg/dL High 7-25 [facility] Comment on above: Performed By: #### H EMO #### [facility] (DEFAULT) [address] [place] [address] 63388 Urea nitrogen/Creatinine [Mass ratio] 47 mg/mg Normal [facility] Comment on above: Performed By: #### H EMO #### [facility] (DEFAULT) [address] [address] GLUCOSE POCon 08-13-2024 Glucose [Mass/Vol] 195 mg/dL High 70 - 179 mg/dL [facility] Interpretation and review of laboratory results Abnormal [facility] POC Sample Type CAPBL [facility] Glucose [Mass/Vol] 198 mg/dL High 70 - 179 mg/dL [facility] Interpretation and review of laboratory results Abnormal [facility] POC Sample Type CAPBL [facility] Glucose [Mass/Vol] 158 mg/dL 70 - 179 mg/dL [facility] POC Sample Type CAPBL [facility] Glucose [Mass/Vol] 211 mg/dL High 70 - 179 mg/dL [facility] Interpretation and review of laboratory results Abnormal [facility] POC Sample Type CAPBL [facility] Glucose [Mass/Vol] 240 mg/dL High 70 - 179 mg/dL [facility] Interpretation and review of laboratory results Abnormal [facility] POC Sample Type CAPBL [facility] MAGNESIUMon 08-13-2024 Interpretation and review of laboratory results Normal [facility] Magnesium [Mass/Vol] 1.8 mg/dL 1.6 - 2 .6 mg/dL [facility] Magnesium [Mass/Vol] 1.8 mg/dL Normal 1.6-2.6 [facility] Comment on above: Performed By: #### H [facility] #### [facility] (DEFAULT) [address] [place] [address] No Panel Informationon 08-13 [facility] CBC,PLATELETSon 08-12-2024 Erythrocyte distribution width (RBC) [Ratio] 13.6 % 10.8 - 14.9 % [facility] Hematocrit (Bld) [Volume fraction] 45.1 % High 34.9 - 44.3 % [facility] Hemoglobin (Bld) [Mass/Vol] 14.3 g/dL 11.4 - 15.2 g/dL [facility] Interpretation and review of laboratory results Abnormal [facility] MCH (RBC) [Entitic mass] 29.7 pg 25.9 - 33.9 pg [facility] MCHC (RBC) [Mass/Vol] 31.7 g/dL 31.4 - 35.9 g/dL [facility] MCV (RBC) [Entitic vol] 93.6 fL 79.6 - 97.7 fL [facility] Platelet mean volume (Bld) [Entitic vol] 11.4 fL 8.5 - 12.2 fL [facility] Platelets (Bld) [#/Vol] 241 10*3/uL 150 - 393 K/uL [facility] RBC (Bld) [#/Vol] 4.82 10*6/uL [facility] WBC (Bld) [#/Vol] 14.32 10*3/uL High 3.99 - 11.19 K/uL [facility] Hematocrit (Bld) [Volume fraction] 45.1 % High 34.9-44.3 [facility] Comment on above: Performed By: #### H [facility] #### [facility] (DEFAULT) [address] [address] Hemoglobin (Bld) [Mass/Vol] 14.3 g/dL Normal 11.4-15.2 [facility] Comment on above: Performed By: #### H EMO #### [facility] (DEFAULT) [address] [address] MCV (RBC) [Entitic vol] 93.6 fL Normal 79.6-97.7 [facility] Comment on above: Performed By: #### H EMOGC #### [facility] (DEFAULT) [address] [address] Mean Cell Hgb 29.7 pg Normal 25.9-33.9 [facility] Comment on above: Performed By: #### H EMOGC #### [facility] (DEFAULT) [address] [address] Mean Cell Hgb Conc 31.7 g/dL Normal 31.4-35.9 [facility] Comment on above: Performed By: #### H EMOGC #### [facility] (DEFAULT) [address] [place] [address] 47082 Platelet mean volume (Bld) [Entitic vol] 11.4 fL Normal 8.5-12.2 [facility] Comment on above: Performed By: #### H EMOGC #### [facility] (DEFAULT) [address] [place] [address]328 Platelets (Bld) [#/Vol] 241 10*3/uL Normal 150-393 [facility] Comment on above: Performed By: #### H EMO #### [facility] (DEFAULT) [address] [place] [address]74 RBC (Bld) [#/Vol] 4.82 10*6/uL Normal 3.91-5.04 [facility] Comment on above: Performed By: #### H EMO #### [facility] (DEFAULT) [address] [place] [address] 89202 RBC Distribution 13.6 % Normal 10.8-14.9 [facility] Comment on above: Performed By: #### H EMO #### [facility] (DEFAULT) [address] [place] [address] 9[address]10 WBC (Bld) [#/Vol] 14.32 10*3/uL High 3.99-11.19 [facility] Comment on above: Performed By: #### H EMOGC #### [facility] (DEFAULT) [address] [place] [address] 61864 CHEM 7 (LYTES,BUN,CREA,GLUC) on 08-12-2024 Anion gap [Moles/Vol] 15 mmol/L 7 - 17 mmol/L [facility] Chloride [Moles/Vol] 104 mmol/L 98 - 10 8 mmol/L [facility] CO2 [Moles/Vol] 27 mmol/L 21 - 31 mmol/L [facility] Creatinine [Mass/Vol] 1.36 mg/dL High 0.50 - 1.20 mg/dL [facility] eGFR, CKD-EPI, Female 40 Low - PINF [facility] Glucose [Mass/Vol] 126 mg/dL 70 - 179 mg/dL [facility] Interpretation and review of laboratory results Abnormal [facility] Osmolality Calc [Osmolality] 313 High [facility] Potassium [Moles/Vol] 4.5 mmol/L 3.5 - 5.0 mmol/L [facility] Sodium [Moles/Vol] 141 mmol/L 135 - 145 mmol/L [facility] Urea nitrogen [Mass/Vol] 56 mg/dL High 7 - 25 mg/dL [facility] Urea nitrogen/Creatinine [Mass ratio] 41 mg/mg [facility] Anion gap [Moles/Vol] 15 mmol/L Normal 7-17 [facility] Comment on above: Performed By: #### T YPEC #### [facility] (DEFAULT) [address] [address] Chloride [Moles/Vol] 104 mmol/L Normal 98-108 [facility] Comment on above: Performed By: #### T YPEC #### [facility] (DEFAULT) [address] [address] CO2 [Moles/Vol] 27 mmol/L Normal 21-31 [facility] Comment on above: Performed By: #### T YPEC #### [facility] (DEFAULT) [address] [address] Creatinine [Mass/Vol] 1.36 mg/dL High 0.50-1.20 [facility] Comment on above: Performed By: #### T YPEC #### [facility] (DEFAULT) [address] [address] GFR/1.73 sq M.predicted among non-blacks MDRD (S/P/Bld) [Vol rate/Area] 40 mL/min/{1.73_m2} Low >=60 [facility] Comment on above: Result Comment: Repo rted eGFR is based on the CKD-EPI 2020 equation using creatinine, age, and sex. Performed By: #### T YPEC #### [facility] (DEFAULT) [address] [place] [address] Glucose [Mass/Vol] 126 mg/dL Normal Nonfastin -179 mg/dL; Fastin-99 [facility] Comment on above: Performed By: #### T YPEC #### [facility] (DEFAULT) [address] [place] [address] Osmolality [Osmolality] 313 mosm/kg High 278-305 [facility] Comment on above: Performed By: #### T YPEC #### [facility] (DEFAULT) [address] [place] [address] Potassium [Moles/Vol] 4.5 mmol/L Normal 3.5-5.0 [facility] Comment on above: Performed By: #### T YPEC #### [facility] (DEFAULT) [address] [place] [address] Sodium [Moles/Vol] 141 mmol/L Normal 135-145 [facility] Comment on above: Performed By: #### T YPEC #### [facility] (DEFAULT) [address] [place] [address] Urea nitrogen [Mass/Vol] 56 mg/dL High 7-25 [facility] Comment on above: Performed By: #### T YPEC #### [facility] (DEFAULT) [address] [place] [address] Urea nitrogen/Creatinine [Mass ratio] 41 mg/mg Normal [facility] Comment on above: Performed By: #### T YPEC #### [facility] (DEFAULT) [address] [place] [address] GLUCOSE POCon 08-12-2024 Glucose [Mass/Vol] 231 mg/dL High 70 - 179 mg/dL [facility] Interpretation and review of laboratory results Abnormal [facility] POC Sample Type [facility]BL [facility] Glucose [Mass/Vol] 208 mg/dL High 70 - 179 mg/dL [facility] Interpretation and review of laboratory results Abnormal [facility] POC Sample Type [facility] Glucose [Mass/Vol] 160 mg/dL 70 - 179 mg/dL [facility] POC Sample Type [facility] Glucose [Mass/Vol] 107 mg/dL 70 - 179 mg/dL [facility] POC Sample Type CAPBL [facility] MAGNESIUMon 08-12-2024 Interpretation and review of laboratory results Normal [facility] Magnesium [Mass/Vol] 2.2 mg/dL 1.6 - 2 .6 mg/dL [facility] Magnesium [Mass/Vol] 2.2 mg/dL Normal 1.6-2.6 [facility] Comment on above: Performed By: #### T YPEC #### [facility] (DEFAULT) [address] [place] [address] No Panel Informationon 08-12 [facility] SURG PATH REQUESTOrdered By: Renae Glez on 08-12-2024 Case Report [facility] Clinical History o0cxwQHkGIPolJShUQYs NVx nloYmBWHvhYLlU6ZjuoyjWR agLZ7wFX8nyQxmcEJfoQNjT UHcGsCrf6zbz157hYIum7iz IWDTuiissTx3dRnpY22ni7U 4ZyzbH7yuADDvXRnxKFQzPR azfMCwQSl7KZYckQTyycMzD wXnOSGfkSXkoNZ8OJJgJS4r uzcqXXetVRqfQBJtvqQ0PBD kqSYlO2JaVSDwPK4hisvkIZ N6FFytSPYpNBT7UoYdHVLbk 3Ehtxm8DsEgyMk3u9bcHRPm WLYgjTbhw0fkKSI7PBDejJX cA4ewfM6pZUXrKU9sozbbs9 jsWUtaFOycXLTmrPC6hmQ4P YEhhRGqZ7PrpY1lGVCcCMNb blZczDpkdN4zYpYzQFksJqV tIz4CMKuOIpKaMBVvd8DmJJ CxOGIOeQPdxh2loDF6VPHQx 59iPvPdGGLupWIznBCKsJI0 s6B2TvSlJv1uhVLhxWArmGG sjJR8a5V5GWXzs9MsWPDlBg xwYXJ9 [facility] For Immediate Release to Patient's MyChart? Yes Yes [facility] Gross Description m4rveYIlEGFou8ufTKLy bGF uZzEwMzNcZnRuYmpcdWMxIH tccnRmMVxlcGljMTExMDVcY P0swWwfwLh2bYxlFNXqigU0 pKIsWLcfq4viJTP9f8hxubg rSMIqUStxIq8atRXshHkqTm FrKAFlASy8bW42KLOpaI3oc EMcMSiaehIdQIEmT3ItQN6u LEdorWAhGHC9eXncYRYumwt jOfO5HCxwUQByqnsnCCv7MB vrZLPxmOC7SPFglOJwD2SrL TPeGJ4uhwo0VXS0WUddKOXp SaD1JBHlzROmKTRxtDlsRBj ax632WLV0NmEyPDXsuiLxpD tduS2gGvOyZFLOtYZdo5VaU 0jkHH8dvJLiuxRlVHm9FQRp fS7qs45nFPMhc1Mdczp1HNi pRcAbMUTzA11zxYFdycBtMZ dpdGggdGhlIHBhdGllbnQnc uUcIZ2tVUXwBJCiO8Bhk7Si i14mtuVtVyYqFdPmxJRyKKT traegQgOkEEzcPoPpRwo1BN IgVGhlIHNwZWNpbWVuIGlzI GKqn6fstsT4DVLcBnafq3Li vVFaJREiiqKsnKVqGJ2bFVQ yaxErw1DbFF6jWYUljkVtBt NtM11wmyEdKP2nHHPjgp9at N2hLGWxVcYluOeho6KjAFVq je6tCRUzFzK7dOU4elVeLsN bX58peW2aB8ArVZSfq4FwQU tnOG2wkH6vJgZxMKBfDMLkg PTkZSAzmdVCRGItZLVpQB4f uEa5ZFtxHetCIGnkIcCuPGH 6FDUdmc19ZPQ4FaOps5V6VZ EyRqCgJYUbRR8xiQjeIOAmU S0rWJCfH5pbaV4vbdn8LdUa MIQdXdC6NHJdaaN3Yph2EST vLPmzz9kyc1BuHNCxUVj8pD miWlUjFETiy8bvtsBmKkGtY SAmFRJpPAEypMUmR724f2qj g4wjedYpzNS7EQQuGKZ1HUx mesFvvjF3VOaudCRyNpJ1NA heqoOyWNfzyqYubkYvCdk0Z USoV806EHS5cOxxh9neJEX3 LGEhXZOuHvZxYu5txQAkI29 0BKHyDKIKQVRdcIe1DMVzuh YexuWlcCVAd147B074t4bgY KJoqkBqrNqTudako6njK441 XHBhcGVydzEyMjQwXHBhcGV otCK8PHZlXA7jtqvlEGgkQX vhHDEcuqS5VVGpeGSiP3UrG NHnWW3ldgniPHT3MPzeTCJj MEG8QpYjBHOoq6Uuizc3NcS mcl9pcw42RHC3y0ObyVfaQC Y3XOD9HtPhAc0kjGYnXSFlQ J7kAsHouBEiCTVgns42bXjr IJfqbpMzaC5qJbOiZDOjjJD bTBAjGM5mmBIdCTEtpN8edm xjXHBnYnJkcmhlYWRccGdic oXhZd5oxWmvSBP4EWjyD0pk yX1dHiL9KUwiQ5nvlA1cTSx 9LQbjfHG1NXXyjH5rVT3opj jel7ejRScbJIzqWRKwviI9v hP6PJEvyYKeP3VsuD6zGVGw QI9wailrv8meSFL7OLghSYA mWNJ2XtBsCRCaz8Mkhpr6Zq Tdq1SzvSItXSvxS95dh610L WDduiAsW7kjzZOwroahjCRd pilqMQgfnfG5VURtJPTrEYm uXGYxXGZzMjJcbGFuZzEwMz NcaGljaFxmMVxkYmNoXGYxX TjkW4qfNmHdMlCqDdEVci3o e5BeFNXdyjQ8qHlhGWFvf7I ul9VbPrHFQYBqJ9RvAJ0vdH PgZBXokz30 [facility] Microscopic Description i3dgqMDnXUHtvFOv ZjIyMDA oSTAch5waZLQqwCNtGcPeUb NcZnRuYmpcdWMxXGRlZmYwe 8odn785vFAff9moQEIuOlH7 sPPoJVLwsWIyQ552MELkHHq fl9itp8SqGILudVZip6P2VJ RNnybwfSi8qMawO00rn2X8K juqV1ciAUOtJVWxT6TtZT2t GLDyZiz8HUX4GAX0AEOqWVL uV4HxOY3zGTRqvMCuIUa0d7 csnPaiSTUkKGP3j0utTJyld oPoMG7lzx7mhYx5f8pihfGy MMBmNWXcbJKXPQNcJ7DtcDc eQn2nfFz4cThlOrmxBAB0Eo j1IZ2afj25coq1cArtZQAlr bvkVzK1SHeuJFAfupveUWl8 ULmkQCJqeMA3ANZsjRXaA3M sIXRmOV6ssmo7IOL6XXvgTV CzIdW2CBOfgLHtJPJdnLzsS Kotx437DGU2QlEwWQ7iX7Wq j5I9dF3zkRGiCCOgsBDkHnZ qTKJswm5srTOcPAymr2DzOR C1ipN5pWQnrGZgWCVvUP20W xyqj9PkBjmgMDW6OYKtjrRs w0Crv4jxFrMdlaThD0olG4Z yZHJoZWFkXHBnYnJkcmZvb3 Ghr5HkpRTnxYc4w7scQONtA VWazGhcn4eeGTT4HWVwR6W8 aQTly0adSGodCZHejKM7cjN 8PMVesQNkK7CuuB9sHCSsWQ 3izmn5x4ciYMF0HWkmBHAbZ qQ8tcM0KFZwgLJcRORlaPsq VVbti273JZP2JcRmVAVxn3T yW0EbpNpaT96hiZtlD80kXX HtkLwjnA6maZxvhZ7qFiNgB nMyNFxxbFxwbGFpblxmMVxm yvNzXOdiizlbARNyDSiiM6k gSlUnODOwlEviSEjmm4WkUD RoHUCkHbJnMPMlrJFsx8Wua 1WjDmLxlBEjgD7drRfyqgW2 YAOzoRIrJp8koMDgVbIorJC yfQ== [facility] Pathologic Diagnosis c5tewRXlUJSdtYEsQBW wNVx pbpDuBVFbmHIbA3MdfheaHN gdNG0iUU8ptRkavBCslWStE WYxWxYti6kcd345zNWrx6zg BCIFkkmmtEb7t5uxRSPLkX4 us7z0rE86CZXkvC1xeJXuXZ vgdtFvYMiponEaklYcAkf6R EA5vWsqKjvaoTD7sXFkzZF6 JBsyh8EbdLxjrNafYPFcTAX lIAC0U2lgeIC5gHLffDtnsM QyTS7py4jxzMC8jnIsSGQ1b XrbkZE6uCuupzhpa8jnaWT8 jSH7ZNoqcKA1AOlhZeSoQ7m tSJYsfR3kC27jS1vaUWErnU vdLWdfAYWejYY7KIN8DQKuo 1xsZXZlbHRleHRcJzAxXCdi Nqa2p6nmKTTlsR32mWCjxfT 7fVxmMVxmczIwXGxpMzYwXG ZpMTgwfXtcbGlzdGxldmVsX BrfugLazqQxVkTypZU7AAcg CuUiAvSujMX2URncJpEtbAH 1MEsdnRYuwPN0ICzacQX3KV c4IXj0MBytDRedSbk7jYbub VT3ROeghJ8wWXHlX38vNcNw ZsXvDW40IYnrb3SrIWBogKq fFSFhgB6bJiJkNXviotIqoi ZjbjIzXGxldmVsamMwXGxld uMrn3GycmVvbAM0SMjqhcFy aFL2kMhkVFFyH2G2H851NNh vskAfpgDhWyEtjru2EYVnOE AqLqK0y0ytvZV3lRH2AZvay MO5NIynPnPnQ0duEUQibL2w S81jW2igKXTowFgoDUayKMS ucSX5FMX9IRNib2miIRCpfC FpvINaBdJiBQotUgh4i7qkM LXawW72uJLyhrJ8uWyrPHmt czIwfXtcbGlzdGxldmVsXGx edwVrniQmUgPvaMS3KUatRt HlOzOapAI2JNsxJrEnzSJ1P HrelAGpiSI1UFkruVO4XVl0 LBu7HRwtIOhvMzg3zLqyeNZ 5HMrhqA0gCURcM72tZiSxHp NyYV80AEtnv7ToBHClxMfwB GEmjD6yJlJtTYdetnXbaxCq bjIzXGxldmVsamMwXGxldmV yr4GfwiXtaAZ1HUrdpsSfoI A1dPiyISIkA6U1M865ZLwxz aQoduCyNwVsgal0AKThWCHp QfY5k7vtmLC1aKW6UTuzrXS 9QJysOjMuK2hdXMVdyA3zR4 0mE9ckEKWekTmqKMvqKTOjy IP3JIB7JRIpz6naSOWwaZDq jTHiEaGlHHzxGsm8z7gmAYN yfD64nMAmsjJ3wWznSYplgb IwfXtcbGlzdGxldmVsXGxld rKiblIaAeFxyZX7NYkcLeEk FvVucFT1YSlkYsKlrCN2AGx ojRQisTY1DPjsdCA9EVf1YG j3VXqzMMsdWry9dByrpIU0I AjswA7ySVVjY65kEtBpIvVz KL65WRclh8ExNNTdfEhaHXO rfP5aRwQxLVfnvdAbbnWnxl IzXGxldmVsamMwXGxldmVsc 2JfptIfaPF9GWpwpfFhxFI0 aKfgXGUmS2R6U490XLkkkcF nvsCzQxGwxow7MFBvRUYvUj M4hB64MAkxnElxnI88YTAbc MTpoHJtsOS7RPebzEailU11 IEPsbJPgIUdyh2SmFIFkGdY 5BgBtRUTidVxpfE54BQTrdL VgH744obDbMPptDP89LKKsw GVydzEyMjQwXHBhcGVyaDE1 IVHdNA7vjsbwYVjvQQjoOUT kvdI2YPZqkYTyB4MaPYPsUA 2rdplhQBW1JZyeWLSnDHA0N hMlQMBko2Qkdhw8VwZnmMPm BSgsdCPdxxsiRUCwHxSnO0T zAUFyQGE2f36uI3zjZTUgd6 BzeTpccGFyXGxpMzYwXGZpM QmlRVfeumI6OSjemuFmjLn2 kQNziVmtmN1hOnozigFbURR sCJCMp1IiiOImyk9qzX1xKK FxkwEVpdZINVgmZ93aTUT0W OAxaZrhe5RlNRwfPU22lEDu ZWRccGFyfQ== [facility] Professional Interpretation Performed at: t7meyODyZXZujBGqByCuSDK lTMXml5nnIZMrgCExIkKtJp NcZnRuYmpcdWMxXGRlZmYwe 6zeo604mOLok1bmOVRaZgF2 sRHnCIFmpAPgV608TNHxWQr ak7jss9RjBKUugYCmm2U0ZD BBkvkneMf6dVziY00gp8U7X krmW6ooIAVmYRVoG9IoDO9k HBObBnz6EWV2PLS0EBMoUYE dB8IuIQ9aYPFxgURtXLv3v6 gpgOwpEMLkNSL3d4xhWOhyz fPuWL5gny5erIe0z3wnitGm GFAkKSQkkZWAMNHdX7CkkYs bCj0laYl5zNhlChazBVA3Gs q9GP0ycf54izl8uIlxBEBvh xwjKrX6PKtxLMBdhyquDIh1 BQviJHBqfID5XJClkDGrV3H cEJBjIO6rbyv1TPO6RJnrDK PsIbX8OSSdcBDzZIWayHucP Hkuz495PZK3WhEbAK1bR8Eo r3A7xR8edAFsMURloAVuKuS xIJCxrd6pjFYlMKrfy5QsUS B4osL7jWEyvCMvKNQhXP20H pnhb8BtUpgvYQS7UUMsdbTq f1Vto8wcFpErrwKvF1oyX9K yZHJoZWFkXHBnYnJkcmZvb3 Yev2RtaJAobKz3i2xxRIYlY APorBhah1kvETU9EJWyA7A3 uRRpz8kuHLbfBKGqtTW0xnR 2KWIejAWdB1ZxtD3nFSEuNB 1ibfc2m2lcVYH3PPowLGLwB oQ1unV3RUWvnAFiFSOxwEds LAwuf915NQT7VmXfOFHah4U qD3OurJaaH38ueGadL57hRB JncEtwzH0fpRvffI8tVvVpV nMyNFxwYXJkXHBsYWluXGYx XGZzMjJcbGFuZzEwMzNcaGl jaFxmMVxkYmNoXGYxXGxvY2 tyDfJiRmGaDvYZN3CgQ5QPL iHUVR8ZDAaYZFeiP0XSNDRE NNQEHW4CJ1PYKVkNTx8PRQA OMitcuHSzNLRtIKGPCGA2MF GglAxrUMPbBXQfkiOPk4e5a DD4ietvV9nwhiX3QrZzQJdh YXJ9 [facility] CBC,PLATELETSon 08-11-2024 Erythrocyte distribution width (RBC) [Ratio] 13.7 % 10.8 - 14.9 % [facility] Hematocrit (Bld) [Volume fraction] 43.2 % 34.9 - 44.3 % [facility] Hemoglobin (Bld) [Mass/Vol] 14 g/dL 11.4 - 15.2 g/dL [facility] Interpretation and review of laboratory results Abnormal [facility] MCH (RBC) [Entitic mass] 29.9 pg 25.9 - 33.9 pg [facility] MCHC (RBC) [Mass/Vol] 32.4 g/dL 31.4 - 35.9 g/dL [facility] MCV (RBC) [Entitic vol] 92.1 fL 79.6 - 97.7 fL [facility] Platelet mean volume (Bld) [Entitic vol] 11.5 fL 8.5 - 12.2 fL [facility] Platelets (Bld) [#/Vol] 240 10*3/uL 150 - 393 K/uL [facility] RBC (Bld) [#/Vol] 4.69 10*6/uL [facility] WBC (Bld) [#/Vol] 11.76 10*3/uL High 3.99 - 11.19 K/uL [facility] Hematocrit (Bld) [Volume fraction] 43.2 % Normal 34.9-44.3 [facility] Comment on above: Performed By: #### T YPEC #### [facility] (DEFAULT) [address] [address] Hemoglobin (Bld) [Mass/Vol] 14.0 g/dL Normal 11.4-15.2 [facility] Comment on above: Performed By: #### T YPEC #### [facility] (DEFAULT) [address] [address] MCV (RBC) [Entitic vol] 92.1 fL Normal 79.6-97.7 O [facility] Comment on above: Performed By: #### T YPEC #### [facility] (DEFAULT) [address] [place] [address] Mean Cell Hgb 29.9 pg Normal 25.9-33.9 [facility] Comment on above: Performed By: #### T YPEC #### [facility] (DEFAULT) [address] [address] Mean Cell Hgb Conc 32.4 g/dL Normal 31.4-35.9 [facility] Comment on above: Performed By: #### T YPEC #### [facility] (DEFAULT) [address] [address] Platelet mean volume (Bld) [Entitic vol] 11.5 fL Normal 8.5-12.2 [facility] Comment on above: Performed By: #### T YPEC #### [facility] (DEFAULT) [address] [address] Platelets (Bld) [#/Vol] 240 10*3/uL Normal 150-393 [facility] Comment on above: Performed By: #### T YPEC #### [facility] (DEFAULT) [address] [address] RBC (Bld) [#/Vol] 4.69 10*6/uL Normal 3.91-5.04 [facility] Comment on above: Performed By: #### T YPEC #### [facility] (DEFAULT) [address] [address] RBC Distribution 13.7 % Normal 10.8-14.9 [facility] Comment on above: Performed By: #### T YPEC #### [facility] (DEFAULT) [address] [address] WBC (Bld) [#/Vol] 11.76 10*3/uL High 3.99-11.19 [facility] Comment on above: Performed By: #### T YPEC #### [facility] (DEFAULT) [address] [address] CHEM 7 (LYTES,BUN,CREA,GLUC) on 08-11-2024 Anion gap [Moles/Vol] 14 mmol/L 7 - 17 mmol/L [facility] Chloride [Moles/Vol] 103 mmol/L 98 - 10 8 mmol/L [facility] CO2 [Moles/Vol] 26 mmol/L 21 - 31 mmol[facility]L [facility] Creatinine [Mass/Vol] 1.32 mg/dL High 0.50 - 1.20 mg/dL [facility] eGFR, CKD-EPI, Female 41 Low - PINF [facility] Glucose [Mass/Vol] 127 mg/dL 70 - 179 mg/dL [facility] Interpretation and review of laboratory results Abnormal [facility] Osmolality Calc [Osmolality] 306 High [facility] Potassium [Moles/Vol] 4.6 mmol/L 3.5 - 5.0 mmol/L [facility] Sodium [Moles/Vol] 138 mmol/L 135 - 145 mmol/L [facility] Urea nitrogen [Mass/Vol] 53 mg/dL High 7 - 25 mg/dL [facility] Urea nitrogen/Creatinine [Mass ratio] 40 mg/mg [facility] Anion gap [Moles/Vol] 14 mmol/L Normal 7-17 [facility] Comment on above: Performed By: #### [facility] #### [facility] (DEFAULT) [address] [place] [address] Chloride [Moles/Vol] 103 mmol/L Normal 98-108 [facility] Comment on above: Performed By: #### H [facility] #### [facility] (DEFAULT) [address] [place] [address] CO2 [Moles/Vol] 26 mmol/L Normal 21-31 [facility] Comment on above: Performed By: #### H [facility] #### [facility] (DEFAULT) [address] [place] [address] Creatinine [Mass/Vol] 1.32 mg/dL High 0.50-1.20 [facility] Comment on above: Performed By: #### H EMOGC #### [facility] (DEFAULT) [address] [place] [address] GFR/1.73 sq M.predicted among non-blacks MDRD (S/P/Bld) [Vol rate/Area] 41 mL/min/{1.73_m2} Low >=60 [facility] Comment on above: Result Comment: Repo rted eGFR is based on the CKD-EPI 2020 equation using creatinine, age, and sex. Performed By: #### H EMOGC #### [facility] (DEFAULT) [address] [place] [address] Glucose [Mass/Vol] 127 mg/dL Normal Nonfastin -179 mg/dL; Fastin-99 [facility] Comment on above: Performed By: #### H EMOGC #### [facility] (DEFAULT) [address] [place] [address] Osmolality [Osmolality] 306 mosm/kg High 278-305 [facility] Comment on above: Performed By: #### H EMOGC #### [facility] (DEFAULT) [address] [place] [address] Potassium [Moles/Vol] 4.6 mmol/L Normal 3.5-5.0 [facility] Comment on above: Performed By: #### H EMOGC #### [facility] (DEFAULT) [address] [place] [address] Sodium [Moles/Vol] 138 mmol/L Normal 135-145 [facility] Comment on above: Performed By: #### H EMOGC #### [facility] (DEFAULT) [address] [place] [address] Urea nitrogen [Mass/Vol] 53 mg/dL High 7-25 [facility] Comment on above: Performed By: #### H EMOGC #### [facility] (DEFAULT) [address] [place] [address] Urea nitrogen/Creatinine [Mass ratio] 40 mg/mg Normal [facility] Comment on above: Performed By: #### H [facility] #### [facility] (DEFAULT) [address] [address] GLUCOSE POCon 08-11-2024 Glucose [Mass/Vol] 213 mg/dL High 70 - 179 mg/dL [facility] Interpretation and review of laboratory results Abnormal [facility] POC Sample Type CAPBL [facility] Glucose [Mass/Vol] 255 mg/dL High 70 - 179 mg/dL [facility] Interpretation and review of laboratory results Abnormal [facility] POC Sample Type CAPBL [facility] Glucose [Mass/Vol] 190 mg/dL High 70 - 179 mg/dL [facility] Interpretation and review of laboratory results Abnormal [facility] POC Sample Type CAPBL [facility] Glucose [Mass/Vol] 205 mg/dL High 70 - 179 mg/dL [facility] Interpretation and review of laboratory results Abnormal [facility] POC Sample Type CAPBL [facility] MAGNESIUMon 08-11-2024 Interpretation and review of laboratory results Normal [facility] Magnesium [Mass/Vol] 1.9 mg/dL 1.6 - 2 .6 mg/dL [facility] Magnesium [Mass/Vol] 1.9 mg/dL Normal 1.6-2.6 [facility] Comment on above: Performed By: #### [place] [id number] #### [facility] (DEFAULT) [address] [address] No Panel Informationon 08-11 [facility] BLOOD CULTUREon 08-10-2024 Bacteria identified Cx Nom (Unsp spec) NO GROWTH DAY 5 OF 5 Normal [facility] Comment on above: Order Comment: [...] bottle. Performed By: #### T YPEC #### [facility] (DEFAULT) [address] [address] Bacteria identified Cx Nom (Unsp spec) NO GROWTH DAY 5 OF 5 Normal [facility] Comment on above: Order Comment: [...] bottle. Performed By: #### B LDCULT #### [facility] (DEFAULT) [address] [place] [address] CBC,PLATELETSon 08-10-2024 Erythrocyte distribution width (RBC) [Ratio] 13.3 % 10.8 - 14.9 % [facility] Hematocrit (Bld) [Volume fraction] 45.1 % High 34.9 - 44.3 % [facility] Hemoglobin (Bld) [Mass/Vol] 14.1 g/dL 11.4 - 15.2 g/dL [facility] Interpretation and review of laboratory results Abnormal [facility] MCH (RBC) [Entitic mass] 29.1 pg 25.9 - 33.9 pg [facility] MCHC (RBC) [Mass/Vol] 31.3 g/dL Low 31.4 - 35.9 g/dL [facility] MCV (RBC) [Entitic vol] 93 fL 79.6 - 97.7 fL [facility] Platelet mean volume (Bld) [Entitic vol] 11.4 fL 8.5 - 12.2 fL [facility] Platelets (Bld) [#/Vol] 216 10*3/uL 150 - 393 K/uL [facility] RBC (Bld) [#/Vol] 4.85 10*6/uL [facility] WBC (Bld) [#/Vol] 13.78 10*3/uL High 3.99 - 11.19 K/uL [facility] Hematocrit (Bld) [Volume fraction] 45.1 % High 34.9-44.3 [facility] Comment on above: Performed By: #### H EMOGC #### [facility] (DEFAULT) [address] [place] [address] Hemoglobin (Bld) [Mass/Vol] 14.1 g/dL Normal 11.4-15.2 [facility] Comment on above: Performed By: #### H EMOGC #### [facility] (DEFAULT) [address] [place] [address] MCV (RBC) [Entitic vol] 93.0 fL Normal 79.6-97.7 [facility] Comment on above: Performed By: #### H EMOGC #### [facility] (DEFAULT) [address] [place] [address] Mean Cell Hgb 29.1 pg Normal 25.9-33.9 [facility] Comment on above: Performed By: #### H EMOGC #### [facility] (DEFAULT) [address] [place] [address] Mean Cell Hgb Conc 31.3 g/dL Low 31.4-35.9 [facility] Comment on above: Performed By: #### H EMOGC #### [facility] (DEFAULT) [address] [place] [address] Platelet mean volume (Bld) [Entitic vol] 11.4 fL Normal 8.5-12.2 [facility] Comment on above: Performed By: #### H EMOGC #### [facility] (DEFAULT) [address] [place] [address] Platelets (Bld) [#/Vol] 216 10*3/uL Normal 150-393 [facility] Comment on above: Performed By: #### H [facility] #### [facility] (DEFAULT) [address] [place] [address] RBC (Bld) [#/Vol] 4.85 10*6/uL Normal 3.91-5.04 [facility] Comment on above: Performed By: #### H [facility] #### [facility] (DEFAULT) [address] [place] [address] RBC Distribution 13.3 % Normal 10.8-14.9 [facility] Comment on above: Performed By: #### H [facility] #### [facility] (DEFAULT) [address] [place] [address] WBC (Bld) [#/Vol] 13.78 10*3/uL High 3.99-11.19 [facility] Comment on above: Performed By: #### H [facility] #### [facility] (DEFAULT) [address] [place] [address] CHEM 7 (LYTES,BUN,CREA,GLUC) on 08-10-2024 Anion gap [Moles/Vol] 16 mmol/L 7 - 17 mmol/L [facility] Chloride [Moles/Vol] 103 mmol/L 98 - 10 8 mmol/L [facility] CO2 [Moles/Vol] 24 mmol/L 21 - 31 mmol/L [facility] Creatinine [Mass/Vol] 1.36 mg/dL High 0.50 - 1.20 mg/dL [facility] eGFR, CKD-EPI, Female 40 Low - PINF [facility] Glucose [Mass/Vol] 186 mg/dL High 70 - 179 mg/dL [facility] Interpretation and review of laboratory results Abnormal [facility] Osmolality Calc [Osmolality] 308 High [facility] Potassium [Moles/Vol] 4.9 mmol/L 3.5 - 5.0 mmol/L [facility] Sodium [Moles/Vol] 138 mmol/L 135 - 145 mmol/L [facility] Urea nitrogen [Mass/Vol] 47 mg/dL High 7 - 25 mg/dL [facility] Urea nitrogen/Creatinine [Mass ratio] 35 mg/mg [facility] Anion gap [Moles/Vol] 16 mmol/L Normal 7-17 [facility] Comment on above: Performed By: #### HEYDI PALACIOS7 ####[facility] (DEFAULT)[address] [place] [address] Chloride [Moles/Vol] 103 mmol/L Normal 98-108 [facility] Comment on above: Performed By: #### HEYDI PALACIOS7 ####[facility] (DEFAULT)[address] [place] [address] CO2 [Moles/Vol] 24 mmol/L Normal 21-31 [facility] Comment on above: Performed By: #### HEYDI PALACIOS7 ####[facility] (DEFAULT)[address] [place] [address] Creatinine [Mass/Vol] 1.36 mg/dL High 0.50-1.20 [facility] Comment on above: Performed By: #### HEYDI PALACIOS7 ####[facility] (DEFAULT)[address] [place] [address] GFR/1.73 sq M.predicted among non-blacks MDRD (S/P/Bld) [Vol rate/Area] 40 mL/min/{1.73_m2} Low >=60 [facility] Comment on above: Result Comment: Repo rted eGFR is based on the CKD-EPI 2020 equation using creatinine, age, and sex. Performed By: #### HEYDI PALACIOS7 ####[facility] (DEFAULT)[address] [place] [address] Glucose [Mass/Vol] 186 mg/dL High Nonfastin -179 mg/dL; Fastin-99 [facility] Comment on above: Performed By: #### Jaiden NGUYEN CHM7 ####[facility] (DEFAULT)[address] [place] [address] Osmolality [Osmolality] 308 mosm/kg High 278-305 [facility] Comment on above: Performed By: #### Jaiden NGUYEN CHM7 ####[facility] (DEFAULT)[address] [place] [address] Potassium [Moles/Vol] 4.9 mmol/L Normal 3.5-5.0 [facility] Comment on above: Performed By: #### HEYDI PALACIOS7 ####[facility] (DEFAULT)[address] [place] [address] Sodium [Moles/Vol] 138 mmol/L Normal 135-145 [facility] Comment on above: Performed By: #### HEYDI PALACIOS7 ####[facility] (DEFAULT)[address] [place] [address] Urea nitrogen [Mass/Vol] 47 mg/dL High 7-25 [facility] Comment on above: Performed By: #### HEYDI PALACIOS7 ####[facility] (DEFAULT)[address] [place] [address] Urea nitrogen/Creatinine [Mass ratio] 35 mg/mg Normal [facility] Comment on above: Performed By: #### HEYDI PALACIOS7 ####[facility] (DEFAULT)[address] [place] [address] GLUCOSE POCon 08-10-2024 Glucose [Mass/Vol] 144 mg/dL 70 - 179 mg/dL [facility] POC Sample Type CAPBL [facility] Glucose [Mass/Vol] 177 mg/dL 70 - 179 mg/dL [facility] POC Sample Type CAPBL [facility] Glucose [Mass/Vol] 180 mg/dL High 70 - 179 mg/dL [facility] Interpretation and review of laboratory results Abnormal [facility] POC Sample Type CAPBL [facility] Glucose [Mass/Vol] 193 mg/dL High 70 - 179 mg/dL [facility] Interpretation and review of laboratory results Abnormal [facility] POC Sample Type CAPBL [facility] Glucose [Mass/Vol] 200 mg/dL High 70 - 179 mg/dL [facility] Interpretation and review of laboratory results Abnormal [facility] Glucose [Mass/Vol] 198 mg/dL High 70 - 179 mg/dL [facility] Interpretation and review of laboratory results Abnormal [facility] POC [facility] MAGNESIUMon 08-10-2024 Interpretation and review of laboratory results Normal [facility] Magnesium [Mass/Vol] 1.8 mg/dL 1.6 - 2 .6 mg/dL [facility] Magnesium [Mass/Vol] 1.8 mg/dL Normal 1.6-2.6 [facility] Comment on above: Performed By: #### M [facility] ####[facility] (DEFAULT)[address] [place] [address] No Panel Informationon 08-10 [facility] URINE CULTUREOrdered By: Franklin Carcamo on 08-10-2024 Bacteria identified Cx Nom (Unsp spec) Growth [facility] Bacteria identified Cx Nom (Unsp spec) KLEBSIELLA PNEUMONIAE Abnormal [facility] Interpretation and review of laboratory results Abnormal [facility] CBC,PLATELETSon 08-09-2024 Erythrocyte distribution width (RBC) [Ratio] 13.5 % 10.8 - 14.9 % [facility] Hematocrit (Bld) [Volume fraction] 44.4 % High 34.9 - 44.3 % [facility] Hemoglobin (Bld) [Mass/Vol] 14.1 g/dL 11.4 - 15.2 g/dL [facility] Interpretation and review of laboratory results Abnormal [facility] MCH (RBC) [Entitic mass] 29.4 pg 25.9 - 33.9 pg [facility] MCHC (RBC) [Mass/Vol] 31.8 g/dL 31.4 - 35.9 g/dL [facility] MCV (RBC) [Entitic vol] 92.7 fL 79.6 - 97.7 fL [facility] Platelet mean volume (Bld) [Entitic vol] 11.5 fL 8.5 - 12.2 fL [facility] Platelets (Bld) [#/Vol] 226 10*3/uL 150 - 393 K/uL [facility] RBC (Bld) [#/Vol] 4.79 10*6/uL [facility] WBC (Bld) [#/Vol] 12.37 10*3/uL High 3.99 - 11.19 K/uL [facility] Hematocrit (Bld) [Volume fraction] 44.4 % High 34.9-44.3 [facility] Comment on above: Performed By: #### H [facility] #### [facility] (DEFAULT) [address] [address] Hemoglobin (Bld) [Mass/Vol] 14.1 g/dL Normal 11.4-15.2 [facility] Comment on above: Performed By: #### H [facility] #### [facility] (DEFAULT) [address] [address] MCV (RBC) [Entitic vol] 92.7 fL Normal 79.6-97.7 [facility] Comment on above: Performed By: #### H [facility] #### [facility] (DEFAULT) [address] [place] [address] Mean Cell Hgb 29.4 pg Normal 25.9-33.9 [facility] Comment on above: Performed By: #### H EMOGC #### [facility] (DEFAULT) [address] [address] Mean Cell Hgb Conc 31.8 g/dL Normal 31.4-35.9 [facility] Comment on above: Performed By: #### H EMOGC #### [facility] (DEFAULT) [address] [address] Platelet mean volume (Bld) [Entitic vol] 11.5 fL Normal 8.5-12.2 [facility] Comment on above: Performed By: #### H EMOGC #### [facility] (DEFAULT) [address] [place] [address] Platelets (Bld) [#/Vol] 226 10*3/uL Normal 150-393 [facility] Comment on above: Performed By: #### H EMO #### [facility] (DEFAULT) [address] [address] RBC (Bld) [#/Vol] 4.79 10*6/uL Normal 3.91-5.04 [facility] Comment on above: Performed By: #### H EMOGC #### [facility] (DEFAULT) [address] [address] RBC Distribution 13.5 % Normal 10.8-14.9 [facility] Comment on above: Performed By: #### H EMOGC #### [facility] (DEFAULT) [address] [address] WBC (Bld) [#/Vol] 12.37 10*3/uL High 3.99-11.19 [facility] Comment on above: Performed By: #### H EMOGC #### [facility] (DEFAULT) [address] [address] CHEM 7 (LYTES,BUN,CREA,GLUC) on 08-09-2024 Anion gap [Moles/Vol] 14 mmol/L 7 - 17 mmol/L [facility] Chloride [Moles/Vol] 103 mmol/L 98 - 10 8 mmol/L [facility] CO2 [Moles/Vol] 26 mmol/L 21 - 31 mmol/L [facility] Creatinine [Mass/Vol] 1.35 mg/dL High 0.50 - 1.20 mg/dL [facility] eGFR, CKD-EPI, Female 40 Low - PINF [facility] Glucose [Mass/Vol] 182 mg/dL High 70 - 179 mg/dL [facility] Interpretation and review of laboratory results Abnormal [facility] Osmolality Calc [Osmolality] 305 [facility] Potassium [Moles/Vol] 4.9 mmol/L 3.5 - 5.0 mmol/L [facility] Sodium [Moles/Vol] 138 mmol/L 135 - 145 mmol/L [facility] Urea nitrogen [Mass/Vol] 38 mg/dL High 7 - 25 mg/dL [facility] Urea nitrogen/Creatinine [Mass ratio] 28 mg/mg [facility] Anion gap [Moles/Vol] 14 mmol/L Normal 7-17 [facility] Comment on above: Performed By: #### H [facility] #### [facility] (DEFAULT) [address] [place] [address] Chloride [Moles/Vol] 103 mmol/L Normal 98-108 [facility] Comment on above: Performed By: #### H [facility] #### [facility] (DEFAULT) [address] [place] [address] CO2 [Moles/Vol] 26 mmol/L Normal 21-31 [facility] Comment on above: Performed By: #### H [facility] #### [facility] (DEFAULT) [address] [place] [address] Creatinine [Mass/Vol] 1.35 mg/dL High 0.50-1.20 [facility] Comment on above: Performed By: #### H EMOGC #### [facility] (DEFAULT) [address] [place] [address] GFR/1.73 sq M.predicted among non-blacks MDRD (S/P/Bld) [Vol rate/Area] 40 mL/min/{1.73_m2} Low >=60 [facility] Comment on above: Result Comment: Repo rted eGFR is based on the CKD-EPI 2020 equation using creatinine, age, and sex. Performed By: #### H EMOGC #### [facility] (DEFAULT) [address] [place] [address] Glucose [Mass/Vol] 182 mg/dL High Nonfastin -179 mg/dL; Fastin-99 [facility] Comment on above: Performed By: #### H EMOGC #### [facility] (DEFAULT) [address] [place] [address] Osmolality [Osmolality] 305 mosm/kg Normal 278-305 [facility] Comment on above: Performed By: #### H EMOGC #### [facility] (DEFAULT) [address] [place] [address] Potassium [Moles/Vol] 4.9 mmol/L Normal 3.5-5.0 [facility] Comment on above: Performed By: #### H EMOGC #### [facility] (DEFAULT) [address] [place] [address] Sodium [Moles/Vol] 138 mmol/L Normal 135-145 [facility] Comment on above: Performed By: #### H EMOGC #### [facility] (DEFAULT) [address] [place] [address] Urea nitrogen [Mass/Vol] 38 mg/dL High 7-25 [facility] Comment on above: Performed By: #### H EMOGC #### [facility] (DEFAULT) [address] [place] [address] Urea nitrogen/Creatinine [Mass ratio] 28 mg/mg Normal [facility] Comment on above: Performed By: #### H [facility] #### [facility] (DEFAULT) [address] [place] [address] EXTRA MICROon 08-09-2024 [facility] GLUCOSE POCon 08-09-2024 Glucose [Mass/Vol] 186 mg/dL High 70 - 179 mg/dL [facility] Interpretation and review of laboratory results Abnormal [facility] POC Sample Type CAPBL [facility] Glucose [Mass/Vol] 255 mg/dL High 70 - 179 mg/dL [facility] Interpretation and review of laboratory results Abnormal [facility] POC Sample Type CAPBL [facility] Glucose [Mass/Vol] 235 mg/dL High 70 - 179 mg/dL [facility] Interpretation and review of laboratory results Abnormal [facility] POC Sample Type CAP[facility] Glucose [Mass/Vol] 167 mg/dL 70 - 179 mg/dL [facility] INTERVENTIONAL UPPER ENDOSCO PYon 08-09-2024 Body surface area Derived from formula 1.9 m2 [facility] LAB, [facility] Radiology Study observation (narrative) [facility] MAGNESIUMon 08-09-2024 Interpretation and review of laboratory results Normal [facility] Magnesium [Mass/Vol] 1.8 mg/dL 1.6 - 2 .6 mg/dL [facility] Magnesium [Mass/Vol] 1.8 mg/dL Normal 1.6-2.6 [facility] Comment on above: Performed By: #### H [facility] #### [facility] (DEFAULT) [address] [place] [address] No Panel Informationon 08-09 [facility] PT,INR,PTTon 08-09-2024 aPTT Coag (PPP) [Time] 38.4 s High [facility] INR Coag (Bld) [Relative time] 1 {INR} 0.9 - 1.1 [facility] Interpretation and review of laboratory results Abnormal [facility] PT Coag (PPP) [Time] 13 s [facility] aPTT Coag (Bld) [Time] 38.4 s High 24.0-34.3 [facility] Comment on above: Performed By: #### B LDCULT #### [facility] (DEFAULT) [address] [address] INR Coag (PPP) [Relative time] 1.0 {INR} Normal 0.9-1.1 [facility] Comment on above: Performed By: #### B LDCULT #### [facility] (DEFAULT) [address] [place] [address] PT Coag (PPP) [Time] 13.0 s Normal 11.9-14.2 [facility] Comment on above: Performed By: #### B LDCULT #### [facility] (DEFAULT) [address] [place] [address] SURG PATH REQUESTon 08-10-19 Case Report [facility] Comment on above: Result Comment: Surg ical Pathology Report Case: [id number] Authorizing Provider: Judsno Keith DO Collected: 08/09/2024 10:07 AM Ordering Location: [facility] Received: 08/09/2024 12:13 PM Pathologist: Renae Glez MD Specimen: STOMACH, gastric, r/o HP Performed By: #### S URGP #### [facility] (DEFAULT) [address] [address] Clinical History R/O HP. Associated Diagnosis: None. Medical History: No medical history provided. Normal [facility] Comment on above: Performed By: #### S URGP #### [facility] (DEFAULT) [address] [address] Gross Description Normal [facility] Comment on above: Result Comment: The specimen is received in one properly labeled container with the patient's name and accession number. A. The specimen is designated "gastric, r/o hp" and consists of five fragments of jackson-pink soft tissue, from 0.2 up to 0.6 cm in greatest dimension. TE 1 Lab Use Only: JobID [id number] Grosser for this case was: Sunshine Hidalgo Performed By: #### S URGP #### [facility] (DEFAULT) [address] [place] [address] Microscopic Description A microscopic examination was performed. [facility] Comment on above: Performed By: #### S URGP #### [facility] (DEFAULT) [address] [address] Pathologic Diagnosis [facility] Comment on above: Result Comment: Anjelica echols, biopsy: Focal erosion No Helicobacter pylori identified at 1005 EDT Performed By: #### S URGP #### [facility] (DEFAULT) [address] [address] Professional Interpretation Performed at: [facility] Comment on above: Result Comment: [facility] For Immediate Release [facility] Yes [address] [place] [address] Performed By: #### S URGP #### [facility] (DEFAULT) [address] [address] CBC,PLATELETSon 08-08-2024 Erythrocyte distribution width (RBC) [Ratio] 13.6 % 10.8 - 14.9 % [facility] Hematocrit (Bld) [Volume fraction] 45.7 % High 34.9 - 44.3 % [facility] Hemoglobin (Bld) [Mass/Vol] 14.4 g/dL 11.4 - 15.2 g/dL [facility] Interpretation and review of laboratory results Abnormal [facility] MCH (RBC) [Entitic mass] 29.4 pg 25.9 - 33.9 pg [facility] MCHC (RBC) [Mass/Vol] 31.5 g/dL 31.4 - 35.9 g/dL [facility] MCV (RBC) [Entitic vol] 93.3 fL 79.6 - 97.7 fL [facility] Platelet mean volume (Bld) [Entitic vol] 10.9 fL 8.5 - 12.2 fL [facility] Platelets (Bld) [#/Vol] 212 10*3/uL 150 - 393 K/uL [facility] RBC (Bld) [#/Vol] 4.9 10*6/uL [facility] WBC (Bld) [#/Vol] 10.39 10*3/uL 3.99 - 11.19 K/uL [facility] Hematocrit (Bld) [Volume fraction] 45.7 % High 34.9-44.3 [facility] Comment on above: Performed By: #### H [facility] #### [facility] (DEFAULT) [address] [address] Hemoglobin (Bld) [Mass/Vol] 14.4 g/dL Normal 11.4-15.2 [facility] Comment on above: Performed By: #### H EMOGC #### [facility] (DEFAULT) [address] [place] [address] MCV (RBC) [Entitic vol] 93.3 fL Normal 79.6-97.7 O [facility] Comment on above: Performed By: #### H EMOGC #### [facility] (DEFAULT) [address] [place] [address] Mean Cell Hgb 29.4 pg Normal 25.9-33.9 [facility] Comment on above: Performed By: #### H EMOGC #### [facility] (DEFAULT) [address] [place] [address] Mean Cell Hgb Conc 31.5 g/dL Normal 31.4-35.9 [facility] Comment on above: Performed By: #### H EMO #### [facility] (DEFAULT) [address] [place] [address] Platelet mean volume (Bld) [Entitic vol] 10.9 fL Normal 8.5-12.2 [facility] Comment on above: Performed By: #### H EMO #### [facility] (DEFAULT) [address] [place] [address] Platelets (Bld) [#/Vol] 212 10*3/uL Normal 150-393 [facility] Comment on above: Performed By: #### H EMO #### [facility] (DEFAULT) [address] [place] [address] RBC (Bld) [#/Vol] 4.90 10*6/uL Normal 3.91-5.04 [facility] Comment on above: Performed By: #### H EMO #### [facility] (DEFAULT) [address] [place] [address] RBC Distribution 13.6 % Normal 10.8-14.9 [facility] Comment on above: Performed By: #### H EMO #### [facility] (DEFAULT) [address] [place] [address] WBC (Bld) [#/Vol] 10.39 10*3/uL Normal 3.99-11.19 [facility] Comment on above: Performed By: #### H EMO #### [facility] (DEFAULT) [address] [place] [address] CHEM 7 (LYTES,BUN,CREA,GLUC) on 08-08-2024 Anion gap [Moles/Vol] 15 mmol/L 7 - 17 mmol/L [facility] Chloride [Moles/Vol] 104 mmol/L 98 - 10 8 mmol/L [facility] CO2 [Moles/Vol] 25 mmol/L 21 - 31 mmol/L [facility] Creatinine [Mass/Vol] 1.15 mg/dL 0.50 - 1.20 mg/dL [facility] eGFR, CKD-EPI, Female 48 Low - PINF [facility] Glucose [Mass/Vol] 111 mg/dL 70 - 179 mg/dL [facility] Interpretation and review of laboratory results Abnormal [facility] Osmolality Calc [Osmolality] 302 [facility] Potassium [Moles/Vol] 4.3 mmol/L 3.5 - 5.0 mmol/L [facility] Sodium [Moles/Vol] 140 mmol/L 135 - 145 mmol/L [facility] Urea nitrogen [Mass/Vol] 35 mg/dL High 7 - 25 mg/dL [facility] Urea nitrogen/Creatinine [Mass ratio] 30 mg/mg [facility] Anion gap [Moles/Vol] 15 mmol/L Normal 7-17 [facility] Comment on above: Performed By: #### CAMERON PALACIOS ####[facility] (DEFAULT)[address] [place] [address] Chloride [Moles/Vol] 104 mmol/L Normal 98-108 [facility] Comment on above: Performed By: #### CAMERON PALACIOS ####[facility] (DEFAULT)[address] [place] [address] CO2 [Moles/Vol] 25 mmol/L Normal 21-31 [facility] Comment on above: Performed By: #### CAMERON PALACIOS ####[facility] (DEFAULT)[address] [place] [address] Creatinine [Mass/Vol] 1.15 mg/dL Normal 0.50-1.20 [facility] Comment on above: Performed By: #### HEYDI PALACIOS7 ####[facility] (DEFAULT)[address] [place] [address] GFR/1.73 sq M.predicted among non-blacks MDRD (S/P/Bld) [Vol rate/Area] 48 mL/min/{1.73_m2} Low >=60 [facility] Comment on above: Result Comment: Repo rted eGFR is based on the CKD-EPI 2020 equation using creatinine, age, and sex. Performed By: #### HEYDI PALACIOS7 ####[facility] [facility] [place] [address] Glucose [Mass/Vol] 111 mg/dL Normal Nonfastin -179 mg/dL; Fastin-99 [facility] Comment on above: Performed By: #### HEYDI PALACIOS7 ####[facility] (DEFAULT)[address] [place] [address] Osmolality [Osmolality] 302 mosm/kg Normal 278-305 [facility] Comment on above: Performed By: #### CAMERON PALACIOS ####[facility] (DEFAULT)[address] [place] [address] Potassium [Moles/Vol] 4.3 mmol/L Normal 3.5-5.0 [facility] Comment on above: Performed By: #### CAMERON PALACIOS ####[facility] (DEFAULT)[address] [place] [address] Sodium [Moles/Vol] 140 mmol/L Normal 135-145 [facility] Comment on above: Performed By: #### HEYDI PALACIOS7 ####[facility] (DEFAULT)[address] [place] [address] Urea nitrogen [Mass/Vol] 35 mg/dL High 7-25 [facility] Comment on above: Performed By: #### HEYDI PALACIOS7 ####[facility] (DEFAULT)[address] [place] [address] Urea nitrogen/Creatinine [Mass ratio] 30 mg/mg Normal [facility] Comment on above: Performed By: #### HEYDI PALACIOS7 ####[facility] (DEFAULT)[address] [place], [place] [address] CT HEAD WITHOUT CONTRASTon 0 08-08-2024 CT [...] have reviewed and approved this report. Normal [facility] CT Head WO contraston 2024 RADIOLOGY RADIOLOGY [facility] Radiology Study observation (narrative) [facility] GLUCOSE POCon 08-08-2024 Glucose [Mass/Vol] 150 mg/dL 70 - 179 mg/dL [facility] POC Sample Type CAPBL [facility] Glucose [Mass/Vol] 148 mg/dL 70 - 179 mg/dL [facility] POC Sample Type CAPBL [facility] Glucose [Mass/Vol] 192 mg/dL High 70 - 179 mg/dL [facility] Interpretation and review of laboratory results Abnormal [facility] POC Sample Type [facility] Glucose [Mass/Vol] 198 mg/dL High 70 - 179 mg/dL [facility] Interpretation and review of laboratory results Abnormal [facility] POC Sample Type [facility] Glucose [Mass/Vol] 186 mg/dL High 70 - 179 mg/dL [facility] Interpretation and review of laboratory results Abnormal [facility] POC Sample Type CAPBL [facility] MAGNESIUMon 08-08-2024 Interpretation and review of laboratory results Normal [facility] Magnesium [Mass/Vol] 1.7 mg/dL 1.6 - 2 .6 mg/dL [facility] Magnesium [Mass/Vol] 1.7 mg/dL Normal 1.6-2.6 [facility] Comment on above: Performed By: #### [facility] ####[facility] (DEFAULT)[address] [place] [address] No Panel Informationon 08-08 [facility] URINALYSIS REFLEX TO CULTURE PERFORMABLEOrdered By: Danya Yates on 08-08-2024 Appearance (U) Cloudy Abnormal Clear [facility] Bacteria LM Ql (Urine sed) PRESENT Abnormal ABSENT [facility] Color (U) Yellow Yellow [facility] Epithelial cells.squamous LM Ql (Urine sed) 0-2/hpf 0-2/hpf, 3-5/hpf = 1+ [facility] Glucose Test strip (U) [Mass/Vol] Negative Negative [facility] Interpretation and review of laboratory results Abnormal [facility] Ketones (U) [Mass/Vol] Trace Abnormal Negative [facility] Leukocyte esterase Test strip Ql (U) Large Abnormal Negative [facility] Nitrite Ql (U) Positive Abnormal Negative [facility] pH (U) 7.0 [pH] 5.0 - 7.0 [facility] Protein (U) [Mass/Vol] Trace Abnormal Negative [facility] RBC (U) [#/Vol] Trace Abnormal Negative [facility] RBC LM.HPF (Urine sed) [#/Area] 6-10 Abnormal [facility] Specific gravity (U) [Rel density] 1.023 1.001 - 1.035 [facility] Urobilinogen (U) [Mass/Vol] 1.0 E.U./dL 0.2 E.U/dL, 1.0 E.U/dL [facility] WBC LM.HPF (Urine sed) [#/Area] /[HPF] Abnormal [facility] URINALYSIS REFLEX TO CULTURE PERFORMABLEon 08-08-2024 Appearance (U) Cloudy Abnormal Clear [facility] Comment on above: Order Comment: For i ndwelling catheters, specimen collection is acceptable on catheter day 1 and 2 only. ? Performed By: #### T YPEC #### [facility] (DEFAULT) [address] [place] [address] Bacteria PRESENT Abnormal ABSENT [facility] Comment on above: Order Comment: For i ndwelling catheters, specimen collection is acceptable on catheter day 1 and 2 only. ? Performed By: #### T YPEC #### [facility] (DEFAULT) [address] [place] [address] Blood Urine Trace Abnormal Negative [facility] Comment on above: Order Comment: For i ndwelling catheters, specimen collection is acceptable on catheter day 1 and 2 only. ? Performed By: #### T YPEC #### [facility] (DEFAULT) [address] [place] [address] Color (U) Yellow Normal Yellow [facility] Comment on above: Order Comment: For i ndwelling catheters, specimen collection is acceptable on catheter day 1 and 2 only. ? Performed By: #### T YPEC #### [facility] (DEFAULT) [address] [place] [address] Glucose Ql (U) Negative Normal Negative [facility] Comment on above: Order Comment: For i ndwelling catheters, specimen collection is acceptable on catheter day 1 and 2 only. ? Performed By: #### T YPEC #### [facility] (DEFAULT) [address] [place] [address] Ketones Ql (U) Trace Abnormal Negative [facility] Comment on above: Order Comment: For i ndwelling catheters, specimen collection is acceptable on catheter day 1 and 2 only. ? Performed By: #### T YPEC #### [facility] (DEFAULT) [address] [place] [address] Leukocyte esterase Test strip Ql (U) Large Abnormal Negative [facility] Comment on above: Order Comment: For i ndwelling catheters, specimen collection is acceptable on catheter day 1 and 2 only. ? Performed By: #### T YPEC #### [facility] (DEFAULT) [address] [place] [address] Nitrites Urine Positive Abnormal Negative [facility] Comment on above: Order Comment: For i ndwelling catheters, specimen collection is acceptable on catheter day 1 and 2 only. ? Performed By: #### T YPEC #### [facility] (DEFAULT) [address] [place] [address] pH (U) 7.0 [pH] Normal 5.0-7.0 [facility] Comment on above: Order Comment: For i ndwelling catheters, specimen collection is acceptable on catheter day 1 and 2 only. ? Performed By: #### T YPEC #### [facility] (DEFAULT) [address] [place] [address] Protein Urine Trace Abnormal Negative [facility] Comment on above: Order Comment: For i ndwelling catheters, specimen collection is acceptable on catheter day 1 and 2 only. ? Performed By: #### T YPEC #### [facility] (DEFAULT) [address] [place] [address] RBC Urine 6-10 Abnormal 0-2 [facility] Comment on above: Order Comment: For i ndwelling catheters, specimen collection is acceptable on catheter day 1 and 2 only. ? Performed By: #### T YPEC #### [facility] (DEFAULT) [address] [address] Specific Sledge Urine 1.023 Normal 1.001-1.035 O [facility] Comment on above: Order Comment: For i ndwelling catheters, specimen collection is acceptable on catheter day 1 and 2 only. ? Performed By: #### T YPEC #### [facility] (DEFAULT) [address] [address] Squamous/Epithelial Cells, Urine 0-2/hpf Normal 0-2/hpf, 3-5/hpf = 1+ [facility] Comment on above: Order Comment: For i ndwelling catheters, specimen collection is acceptable on catheter day 1 and 2 only. ? Performed By: #### T YPEC #### [facility] (DEFAULT) [address] [address] Urobilinogen Urine 1.0 E.U./dL Normal 0.2 E.U/d L, 1.0 E.U/dL [facility] Comment on above: Order Comment: For i ndwelling catheters, specimen collection is acceptable on catheter day 1 and 2 only. ? Performed By: #### T YPEC #### [facility] (DEFAULT) [address] [address] WBC LM.HPF (Urine sed) [#/Area] /[HPF] Abnormal 0 - 5 [facility] Comment on above: Order Comment: For i ndwelling catheters, specimen collection is acceptable on catheter day 1 and 2 only. ? Performed By: #### T YPEC #### [facility] (DEFAULT) [address] [address] URINE CULTUREon 08-08-2024 Amikacin [Susceptibility] <= Invalid Interpretation Code [facility] Comment on above: Order Comment: For [...] ? Performed By: #### T YPEC #### [facility] (DEFAULT) [address] [address] Ampicillin [Susceptibility] >=32 Resistant [facility] Comment on above: Order Comment: For [...] ? Performed By: #### T YPEC #### [facility] (DEFAULT) [address] [address] Ampicillin+Sulbactam [Susceptibility] >=32 Resistant [facility] Comment on above: Order Comment: For [...] ? Performed By: #### T YPEC #### [facility] (DEFAULT) [address] [address] ceFAZolin [Susceptibility] >= Resistant [facility] Comment on above: Order Comment: For [...] Performed By: #### T YPEC #### [facility] (DEFAULT) [address] [address] Cefepime [Susceptibility] <= Invalid Interpretation Code [facility] Comment on above: Order Comment: For [...] Performed By: #### T YPEC #### [facility] (DEFAULT) [address] [address] cefTRIAXone [Susceptibility] <= Invalid Interpretation Code [facility] Comment on above: Order Comment: For [...] ? Performed By: #### T YPEC #### [facility] (DEFAULT) [address] [address] Ciprofloxacin [Susceptibility] >= Resistant [facility] Comment on above: Order Comment: For [...] ? Performed By: #### T YPEC #### [facility] (DEFAULT) [address] [address] Ertapenem [Susceptibility] <= Invalid Interpretation Code [facility] Comment on above: Order Comment: For [...] ? Performed By: #### T YPEC #### [facility] (DEFAULT) [address] [address] Gentamicin [Susceptibility] <= Invalid Interpretation Code [facility] Comment on above: Order Comment: For [...] Performed By: #### T YPEC #### [facility] (DEFAULT) [address] [address] levoFLOXacin [Susceptibility] >= Resistant [facility] Comment on above: Order Comment: For [...] Performed By: #### T YPEC #### [facility] (DEFAULT) [address] [address] Nitrofurantoin [Susceptibility] 128 ug/mL Resistant [facility] Comment on above: Order Comment: For [...] Performed By: #### T YPEC #### [facility] (DEFAULT) [address] [address] Piperacillin+Tazobactam [Susceptibility] 8 ug/mL Invalid Interpretation Code [facility] Comment on above: Order Comment: For [...] ? Performed By: #### T YPEC #### [facility] (DEFAULT) [address] [place] [address] Trimethoprim+Sulfametho xazole [Susceptibility] <= Invalid Interpretation Code [facility] Comment on above: Order Comment: For [...] ? Performed By: #### T YPEC #### [facility] (DEFAULT) [address] [place] [address] CBC,PLATELETSon 08-07-2024 Erythrocyte distribution width (RBC) [Ratio] 13.9 % 10.8 - 14.9 % [facility] Hematocrit (Bld) [Volume fraction] 43.1 % 34.9 - 44.3 % [facility] Hemoglobin (Bld) [Mass/Vol] 13.7 g/dL 11.4 - 15.2 g/dL [facility] Interpretation and review of laboratory results Abnormal [facility] MCH (RBC) [Entitic mass] 29.6 pg 25.9 - 33.9 pg [facility] MCHC (RBC) [Mass/Vol] 31.8 g/dL 31.4 - 35.9 g/dL [facility] MCV (RBC) [Entitic vol] 93.1 fL 79.6 - 97.7 fL [facility] Platelet mean volume (Bld) [Entitic vol] 11.1 fL 8.5 - 12.2 fL [facility] Platelets (Bld) [#/Vol] 214 10*3/uL 150 - 393 K/uL [facility] RBC (Bld) [#/Vol] 4.63 10*6/uL [facility] WBC (Bld[facility] [#/Vol] 11.3 10*3/uL High 3.99 - 11.19 K/uL [facility] CHEM 7 (LYTES,BUN,CREA,GLUC) on 08-07-2024 Anion gap [Moles/Vol] 13 mmol/L 7 - 17 mmol/L [facility] Chloride [Moles/Vol] 105 mmol/L 98 - 10 8 mmol/L [facility] CO2 [Moles/Vol] 28 mmol/L 21 - 31 mmol/L [facility] Creatinine [Mass/Vol] 1.19 mg/dL 0.50 - 1.20 mg/dL [facility] eGFR, CKD-EPI, Female 47 Low - PINF [facility] Glucose [Mass/Vol] 90 mg/dL 70 - 179 mg/dL [facility] Interpretation and review of laboratory results Abnormal [facility] Osmolality Calc [Osmolality] 304 [facility] Potassium [Moles/Vol] 4.2 mmol/L 3.5 - 5.0 mmol/L [facility] Sodium [Moles/Vol] 142 mmol/L 135 - 145 mmol/L [facility] Urea nitrogen [Mass/Vol] 34 mg/dL High 7 - 25 mg/dL [facility] Urea nitrogen/Creatinine [Mass ratio] 29 mg/mg [facility] GLUCOSE POCon 08-07-2024 Glucose [Mass/Vol] 185 mg/dL High 70 - 179 mg/dL [facility] Interpretation and review of laboratory results Abnormal [facility] POC Sample Type [facility] Glucose [Mass/Vol] 106 mg/dL 70 - 179 mg/dL [facility] POC Sample Type [facility] Glucose [Mass/Vol] 104 mg/dL 70 - 179 mg/dL [facility] POC Sample Type [facility] MAGNESIUMon 08-07-2024 Interpretation and review of laboratory results Normal [facility] Magnesium [Mass/Vol] 1.8 mg/dL 1.6 - 2 .6 mg/dL [facility] No Panel Informationon 08-07 [facility] CBC,PLATELETSon 08-06-2024 Hematocrit (Bld) [Volume fraction] 43.1 % Normal 34.9-44.3 [facility] Comment on above: Performed By: #### X M #### [facility] (DEFAULT) [address] [address] Hemoglobin (Bld) [Mass/Vol] 13.7 g/dL Normal 11.4-15.2 [facility] Comment on above: Performed By: #### X M #### [facility] (DEFAULT) [address] [address] MCV (RBC) [Entitic vol] 93.1 fL Normal 79.6-97.7 O [facility] Comment on above: Performed By: #### X M #### [facility] (DEFAULT) [address] [address] Mean Cell Hgb 29.6 pg Normal 25.9-33.9 [facility] Comment on above: Performed By: #### X M #### [facility] (DEFAULT) [address] [address] Mean Cell Hgb Conc 31.8 g/dL Normal 31.4-35.9 [facility] Comment on above: Performed By: #### X M #### [facility] (DEFAULT) [address] [address] Platelet mean volume (Bld) [Entitic vol] 11.1 fL Normal 8.5-12.2 [facility] Comment on above: Performed By: #### X M #### [facility] (DEFAULT) [address] [place] [address] Platelets (Bld) [#/Vol] 214 10*3/uL Normal 150-393 [facility] Comment on above: Performed By: #### X M #### [facility] (DEFAULT) [address] [place] [address] RBC (Bld) [#/Vol] 4.63 10*6/uL Normal 3.91-5.04 [facility] Comment on above: Performed By: #### X M #### [facility] (DEFAULT) [address] [place] [address] RBC Distribution 13.9 % Normal 10.8-14.9 [facility] Comment on above: Performed By: #### X M #### [facility] (DEFAULT) [address] [place] [address] WBC (Bld) [#/Vol] 11.30 10*3/uL High 3.99-11.19 [facility] Comment on above: Performed By: #### X M #### [facility] (DEFAULT) [address] [place] [address] Erythrocyte distribution width (RBC) [Ratio] 13.9 % 10.8 - 14.9 % [facility] Hematocrit (Bld) [Volume fraction] 44 % 34.9 - 44.3 % [facility] Hemoglobin (Bld) [Mass/Vol] 13.9 g/dL 11.4 - 15.2 g/dL [facility] Interpretation and review of laboratory results Abnormal [facility] MCH (RBC) [Entitic mass] 29.1 pg 25.9 - 33.9 pg [facility] MCHC (RBC) [Mass/Vol] 31.6 g/dL 31.4 - 35.9 g/dL [facility] MCV (RBC) [Entitic vol] 92.2 fL 79.6 - 97.7 fL [facility] Platelet mean volume (Bld) [Entitic vol] 10.7 fL 8.5 - 12.2 fL [facility] Platelets (Bld) [#/Vol] 216 10*3/uL 150 - 393 K/uL [facility] RBC (Bld) [#/Vol] 4.77 10*6/uL [facility] WBC (Bld) [#/Vol] 12.14 10*3/uL High 3.99 - 11.19 K/uL [facility] CHEM 7 (LYTES,BUN,CREA,GLUC) on 08-06-2024 Anion gap [Moles/Vol] 13 mmol/L Normal 7-17 [facility] Comment on above: Performed By: #### HEYDI PALACIOS7 ####[facility] (DEFAULT)[address] [place] [address] Chloride [Moles/Vol] 105 mmol/L Normal 98-108 [facility] Comment on above: Performed By: #### HEYDI PALACIOS7 ####[facility] (DEFAULT)[address] [place] [address] CO2 [Moles/Vol] 28 mmol/L Normal 21-31 [facility] Comment on above: Performed By: #### HEYDI PALACIOS7 ####[facility] (DEFAULT)[address] [facility] [place] [address] Creatinine [Mass/Vol] 1.19 mg/dL Normal 0.50-1.20 [facility] Comment on above: Performed By: #### HEYDI PALACIOS7 ####[facility] (DEFAULT)[address] [place] [address] GFR/1.73 sq M.predicted among non-blacks MDRD (S/P/Bld) [Vol rate/Area] 47 mL/min/{1.73_m2} Low >=60 [facility] Comment on above: Result Comment: Repo rted eGFR is based on the CKD-EPI 2020 equation using creatinine, age, and sex. Performed By: #### HEYDI PALACIOS7 ####[facility] (DEFAULT)[address] [place] [address] Glucose [Mass/Vol] 90 mg/dL Normal Nonfastin -179 mg/dL; Fastin-99 [facility] Comment on above: Performed By: #### HEYDI PALACIOS7 ####[facility] (DEFAULT)[address] [place] [address] Osmolality [Osmolality] 304 mosm/kg Normal 278-305 [facility] Comment on above: Performed By: #### HEYDI PALACIOS7 ####[facility] (DEFAULT)[address] [place] [address] Potassium [Moles/Vol] 4.2 mmol/L Normal 3.5-5.0 [facility] Comment on above: Performed By: #### CAMERON PALACIOS ####[facility] (DEFAULT)[address] [place] [address] Sodium [Moles/Vol] 142 mmol/L Normal 135-145 [facility] Comment on above: Performed By: #### HEYDI PALACIOS7 ####[facility] (DEFAULT)[address] [place] [address] Urea nitrogen [Mass/Vol] 34 mg/dL High 7-25 [facility] Comment on above: Performed By: #### HEYDI PALACIOS7 ####[facility] (DEFAULT)[address] [facility] [place] [address] Urea nitrogen/Creatinine [Mass ratio] 29 mg/mg Normal [facility] Comment on above: Performed By: #### HEYDI PALACIOS7 ####[facility] (DEFAULT)[address] [place] [address] Anion gap [Moles/Vol] 14 mmol/L 7 - 17 mmol/L [facility] Chloride [Moles/Vol] 107 mmol/L 98 - 10 8 mmol/L [facility] CO2 [Moles/Vol] 27 mmol/L 21 - 31 [facility]L [facility] Creatinine [Mass/Vol] 1.19 mg/dL 0.50 - 1.20 mg/dL [facility] eGFR, CKD-EPI, Female 47 Low - PINF [facility] Glucose [Mass/Vol] 88 mg/dL 70 - 179 mg/dL [facility] Interpretation and review of laboratory results Abnormal [facility] Osmolality Calc [Osmolality] 307 [facility] Potassium [Moles/Vol] 3.9 mmol/L 3.5 - 5.0 mmol/L [facility] Sodium [Moles/Vol] 144 mmol/L 135 - 145 mmol/L [facility] Urea nitrogen [Mass/Vol] 34 mg/dL High 7 - 25 mg/dL [facility] Urea nitrogen/Creatinine [Mass ratio] 29 mg/mg [facility] GLUCOSE POCon 08-06-2024 Glucose [Mass/Vol] 166 mg/dL 70 - 179 mg/dL [facility] Glucose [Mass/Vol] 106 mg/dL 70 - 179 mg/dL [facility] Glucose [Mass/Vol] 100 mg/dL 70 - 179 mg/dL [facility] POC Sample Type [facility] Glucose [Mass/Vol] 219 mg/dL High 70 - 179 mg/dL [facility] Interpretation and review of laboratory results Abnormal [facility] Glucose [Mass/Vol] 249 mg/dL High 70 - 179 mg/dL [facility] Glucose [Mass/Vol] 178 mg/dL 70 - 179 mg/dL [facility] Glucose [Mass/Vol] 194 mg/dL High 70 - 179 mg/dL [facility] Glucose [Mass/Vol] 93 mg/dL 70 - 179 mg/dL [facility] POC Sample Type [facility] IONIZED CALCIUM, WHOLE BLOOD Ordered By: Zuleika Blunt on 08-06-2024 Calcium.ionized (Bld) [Moles/Vol] 4.72 mg/dL 4.60 - 5.30 mg/dL [facility] Interpretation and review of laboratory results Normal [facility] MAGNESIUMon 08-06-2024 Magnesium [Mass/Vol] 1.8 mg/dL Normal 1.6-2.6 [facility] Comment on above: Performed By: #### M [facility] ####[facility] (DEFAULT)[address] [place] [address] Magnesium [Mass/Vol] 2.4 mg/dL 1.6 - 2 .6 mg/dL [facility] No Panel Informationon 08-06 POC Sample Type [facility] Interpretation and review of laboratory results Abnormal [facility] POC Sample Type [facility] Interpretation and review of laboratory results Normal [facility] PHOSPHATE, INORGANICon 08-06 Phosphate [Mass/Vol] 3.2 mg/dL 2.2 - 4 .6 mg/dL [facility] RF videography Hypopharynx a nd Esophagus Views W liquid and paste contrast PO during swallowingon 08-06-2024 RADIOLOGY RADIOLOGY [facility] Radiology Study observation (narrative) [facility] RF videography Hypopharynx a nd Esophagus Views W liquid and paste contrast PO during swallowingOrdered By: Gerry Resendez on 08-06-2024 [facility] Work Phone: SPEECH MODIFIED BARIUM SWALL OWon 08-06-2024 [facility] XR FLUORO MODIFIED BARIUM SW ALLOW [...] for specific therapeutic recommendations, please see the uptwister tender report of the speech pathologist. Examination performed by ARCADIO Nicole, under the direct supervision of Gerry Resendez M.D., who was immediately available on site during the examination. I personally viewed and interpreted these images and I have reviewed and approved this report. Normal [facility] CBC,PLATELETSon 08-05-2024 Hematocrit (Bld) [Volume fraction] 44.0 % Normal 34.9-44.3 [facility] Comment on above: Performed By: #### B LDCULT #### [facility] (DEFAULT) [address] [address] Hemoglobin (Bld) [Mass/Vol] 13.9 g/dL Normal 11.4-15.2 [facility] Comment on above: Performed By: #### B LDCULT #### [facility] (DEFAULT) [address] [place] [address] MCV (RBC) [Entitic vol] 92.2 fL Normal 79.6-97.7 O [facility] Comment on above: Performed By: #### B LDCULT #### [facility] (DEFAULT) [address] [address] Mean Cell Hgb 29.1 pg Normal 25.9-33.9 [facility] Comment on above: Performed By: #### B LDCULT #### [facility] (DEFAULT) [address] [place] [address] Mean Cell Hgb Conc 31.6 g/dL Normal 31.4-35.9 [facility] Comment on above: Performed By: #### B LDCULT #### [facility] (DEFAULT) [address] [place] [address] Platelet mean volume (Bld) [Entitic vol] 10.7 fL Normal 8.5-12.2 [facility] Comment on above: Performed By: #### B LDCULT #### [facility] (DEFAULT) [address] [place] [address] Platelets (Bld) [#/Vol] 216 10*3/uL Normal 150-393 [facility] Comment on above: Performed By: #### B LDCULT #### [facility] (DEFAULT) [address] [place] [address] RBC (Bld) [#/Vol] 4.77 10*6/uL Normal 3.91-5.04 [facility] Comment on above: Performed By: #### B LDCULT #### [facility] (DEFAULT) [address] [place] [address] RBC Distribution 13.9 % Normal 10.8-14.9 [facility] Comment on above: Performed By: #### B LDCULT #### [facility] (DEFAULT) [address] [place] [address] WBC (Bld) [#/Vol] 12.14 10*3/uL High 3.99-11.19 [facility] Comment on above: Performed By: #### B LDCULT #### [facility] (DEFAULT) [address] [place] [address] Erythrocyte distribution width (RBC) [Ratio] 13.9 % 10.8 - 14.9 % [facility] Hematocrit (Bld) [Volume fraction] 39.6 % 34.9 - 44.3 % [facility] Hemoglobin (Bld) [Mass/Vol] 12.6 g/dL 11.4 - 15.2 g/dL [facility] Interpretation and review of laboratory results Normal [facility] MCH (RBC) [Entitic mass] 29.3 pg 25.9 - 33.9 pg [facility] MCHC (RBC) [Mass/Vol] 31.8 g/dL 31.4 - 35.9 g/dL [facility] MCV (RBC) [Entitic vol] 92.1 fL 79.6 - 97.7 fL [facility] Platelet mean volume (Bld) [Entitic vol] 10.7 fL 8.5 - 12.2 fL [facility] Platelets (Bld) [#/Vol] 198 10*3/uL 150 - 393 K/uL [facility] RBC (Bld) [#/Vol] 4.3 10*6/uL [facility] WBC (Bld) [#/Vol] 10.61 10*3/uL 3.99 - 11.19 K/uL [facility] Hematocrit (Bld) [Volume fraction] 39.6 % Normal 34.9-44.3 [facility] Comment on above: Performed By: #### H [facility] ####[facility] (DEFAULT)[address] [place] [address] Hemoglobin (Bld) [Mass/Vol] 12.6 g/dL Normal 11.4-15.2 [facility] Comment on above: Performed By: #### H [facility] ####[facility] (DEFAULT)[address] [place] [address] MCV (RBC) [Entitic vol] 92.1 fL Normal 79.6-97.7 [facility] Comment on above: Performed By: #### H [facility] ####[facility] (DEFAULT)[address] [place] [address] Mean Cell Hgb 29.3 pg Normal 25.9-33.9 [facility] Comment on above: Performed By: #### H EMOGC ####[facility] (DEFAULT)[address] [place] [address] Mean Cell Hgb Conc 31.8 g/dL Normal 31.4-35.9 [facility] Comment on above: Performed By: #### H EMOGC ####[facility] (DEFAULT)[address] [place] [address] Platelet mean volume (Bld) [Entitic vol] 10.7 fL Normal 8.5-12.2 [facility] Comment on above: Performed By: #### H EMOGC ####[facility] (DEFAULT)[address] [place] [address] Platelets (Bld) [#/Vol] 198 10*3/uL Normal 150-393 [facility] Comment on above: Performed By: #### H EMOGC ####[facility] (DEFAULT)[address] [facility] [place] [address] RBC (Bld) [#/Vol] 4.30 10*6/uL Normal 3.91-5.04 [facility] Comment on above: Performed By: #### H EMOGC ####[facility] (DEFAULT)[address] [place] [address] RBC Distribution 13.9 % Normal 10.8-14.9 [facility] Comment on above: Performed By: #### H EMOGC ####[facility] (DEFAULT)[address] [place] [address] WBC (Bld) [#/Vol] 10.61 10*3/uL Normal 3.99-11.19 [facility] Comment on above: Performed By: #### H EMOGC ####[facility] (DEFAULT)[address] [place] [address] CHEM 7 (LYTES,BUN,CREA,GLUC) on 08-05-2024 Anion gap [Moles/Vol] 14 mmol/L Normal 7-17 [facility] Comment on above: Performed By: #### S URGP #### [facility] (DEFAULT) [address] [address] Chloride [Moles/Vol] 107 mmol/L Normal 98-108 [facility] Comment on above: Performed By: #### S URGP #### [facility] (DEFAULT) [address] [address] CO2 [Moles/Vol] 27 mmol/L Normal 21-31 [facility] Comment on above: Performed By: #### S URGP #### [facility] (DEFAULT) [address] [address] Creatinine [Mass/Vol] 1.19 mg/dL Normal 0.50-1.20 [facility] Comment on above: Performed By: #### S URGP #### [facility] (DEFAULT) [address] [address] GFR/1.73 sq M.predicted among non-blacks MDRD (S/P/Bld) [Vol rate/Area] 47 mL/min/{1.73_m2} Low >=60 [facility] Comment on above: Result Comment: Repo rted eGFR is based on the CKD-EPI 2020 equation using creatinine, age, and sex. Performed By: #### S URGP #### [facility] (DEFAULT) [address] [address] Glucose [Mass/Vol] 88 mg/dL Normal Nonfastin -179 mg/dL; Fastin-99 [facility] Comment on above: Performed By: #### S URGP #### [facility] (DEFAULT) [address] [address] Osmolality [Osmolality] 307 mosm/kg High 278-305 [facility] Comment on above: Performed By: #### S URGP #### [facility] (DEFAULT) [address] [place] [address] Potassium [Moles/Vol] 3.9 mmol/L Normal 3.5-5.0 [facility] Comment on above: Performed By: #### S URGP #### [facility] (DEFAULT) [address] [place] [address] Sodium [Moles/Vol] 144 mmol/L Normal 135-145 [facility] Comment on above: Performed By: #### S URGP #### [facility] (DEFAULT) [address] [place] [address] Urea nitrogen [Mass/Vol] 34 mg/dL High 7-25 [facility] Comment on above: Performed By: #### S URGP #### [facility] (DEFAULT) [address] [place] [address] Urea nitrogen/Creatinine [Mass ratio] 29 mg/mg Normal [facility] Comment on above: Performed By: #### S URGP #### [facility] (DEFAULT) [address] [place] [address] Anion gap [Moles/Vol] 14 mmol/L 7 - 17 mmol/L [facility] Chloride [Moles/Vol] 108 mmol/L 98 - 10 8 mmol/L [facility] CO2 [Moles/Vol] 25 mmol/L 21 - 31 mmol/L [facility] Creatinine [Mass/Vol] 1.45 mg/dL High 0.50 - 1.20 mg/dL [facility] eGFR, CKD-EPI, Female 37 Low - PINF [facility] Glucose [Mass/Vol] 242 mg/dL High 70 - 179 mg/dL [facility] Interpretation and review of laboratory results Abnormal [facility] Osmolality Calc [Osmolality] 315 High [facility] Potassium [Moles/Vol] 3.8 mmol/L 3.5 - 5.0 mmol/L [facility] Sodium [Moles/Vol] 143 mmol/L 135 - 145 mmol/L [facility] Urea nitrogen [Mass/Vol] 35 mg/dL High 7 - 25 mg/dL [facility] Urea nitrogen/Creatinine [Mass ratio] 24 mg/mg [facility] Anion gap [Moles/Vol] 14 mmol/L Normal 7-17 [facility] Comment on above: Performed By: #### X M #### [facility] (DEFAULT) [address] [place] [address] Chloride [Moles/Vol] 108 mmol/L Normal 98-108 [facility] Comment on above: Performed By: #### X M #### [facility] (DEFAULT) [address] [place] [address] CO2 [Moles/Vol] 25 mmol/L Normal 21-31 [facility] Comment on above: Performed By: #### X M #### [facility] (DEFAULT) [address] [place] [address] Creatinine [Mass/Vol] 1.45 mg/dL High 0.50-1.20 [facility] Comment on above: Performed By: #### X M #### [facility] (DEFAULT) [address] [place] [address] GFR/1.73 sq M.predicted among non-blacks MDRD (S/P/Bld) [Vol rate/Area] 37 mL/min/{1.73_m2} Low >=60 [facility] Comment on above: Result Comment: Repo rted eGFR is based on the CKD-EPI 1 equation using creatinine, age, and sex. Performed By: #### X M #### [facility] (DEFAULT) [address] [place] [address] Glucose [Mass/Vol] 242 mg/dL High Nonfastin -179 mg/dL; Fastin-99 [facility] Comment on above: Performed By: #### X M #### [facility] (DEFAULT) [address] [place] [address] Osmolality [Osmolality] 315 mosm/kg High 278-305 [facility] Comment on above: Performed By: #### X M #### [facility] (DEFAULT) [address] [place] [address] Potassium [Moles/Vol] 3.8 mmol/L Normal 3.5-5.0 [facility] Comment on above: Performed By: #### X M #### [facility] (DEFAULT) [address] [place] [address] Sodium [Moles/Vol] 143 mmol/L Normal 135-145 [facility] Comment on above: Performed By: #### X M #### [facility] (DEFAULT) [address] [place] [address] Urea nitrogen [Mass/Vol] 35 mg/dL High 7-25 [facility] Comment on above: Performed By: #### X M #### [facility] (DEFAULT) [address] [place] [address] Urea nitrogen/Creatinine [Mass ratio] 24 mg/mg Normal [facility] Comment on above: Performed By: #### X M #### [facility] (DEFAULT) [address] [place] [address] Cardiac echo study Procedure Ordered By: Ezequiel Figueroa on 08-05-2024 Ao ASC index 1.56 cm/m2 [facility] Work Phone: [phone] Ao peak fidel 1.23 m/s [facility] Work Phone: Ao SOV index 1.56 cm/m2 [facility] Work Phone: Ao STJ index 1.36 cm/m2 [facility] Work Phone: Ao VTI 24.81 cm [facility] Work Phone: Ascending aorta 2.97 cm [facility] Work Phone: AV LVOT peak gradient 4 mmHg [facility] Work Phone: AV mean gradient 4 mmHg [facility] Work Phone: [phone] AV peak gradient 6 mmHG [facility] Work Phone: [phone] AV valve area 2.72 cm2 [facility] Work Phone: [phone] AV Velocity Ratio 0.8 [facility] Work Phone: [phone] MARKUS (continuity Vmax) 2.55 cm2 [facility] Work Phone: [phone] MARKUS (continuity VTI) 2.72 cm2 [facility] Work Phone: [phone] MARKUS index (continuity Vmax) 1.34 m/s [facility] Work Phone: [phone] MARKUS index (continuity VTI) 1.43 cm2/m2 [facility] Work Phone: [phone] Avg e' pk fidel 0.09 m/s [facility] Work Phone: [phone] Body surface area Derived from formula 1.9 m2 [facility] Work Phone: [phone] BP EF 55 % [facility] Work Phone: [phone] DI (Vmax) 0.8 [facility] Work Phone: [phone] DI (VTI) 0.86 m/2 [facility] Work Phone: [phone] e' lateral pk fidle 0.0845 m/s [facility] Work Phone: [phone] e' lateral pk fidel 0.08 m/s [facility] Work Phone: [phone] e' septal pk fidel 0.0953 m/s [facility] Work Phone: [phone] e' septal pk fidel 0.1 m/s [facility] Work Phone: [phone] EF SP 2CH 56 [facility] Work Phone: [phone] EF SP 4CH 51 [facility]: [phone] EST RAP 3 mmHg [facility] Work Phone: [phone] EST RVSP 29 mmHg [facility] Work Phone: [phone] FS 31 % [facility] Work Phone: [phone] IVC ostium 1.64 cm [facility] Work Phone: [phone] IVS 1.14 cm [facility] Work Phone: [phone] LA area 4CH 29.07 cm2 [facility] Work Phone: [phone] LA ESV BP (MOD) 86 [facility] Work Phone: [phone] LA ESV BP (MOD) index 45 mL/m2 [facility] Work Phone: [phone] LA ESV SP 2CH (MOD) 81 mL [facility] Work Phone: [phone] LA ESV SP 4CH (MOD) 93 mL [facility] Work Phone: [phone] LV EDV BP 88 mL [facility] Work Phone: [phone] LV EDV SP 2CH 85 [facility] Work Phone: [phone] LV EDV SP 4CH 86 [facility] Work Phone: [phone] LV ESV BP 40 mL [facility] Work Phone: [phone] LV ESV SP 2CH 37 [facility] Work Phone: [phone] LV ESV SP 4CH 42 mL [facility] Work Phone: [phone] LV mass 146.48 g [facility] Work Phone: [phone] LV Mass Index 77.1 g/m2 [facility] Work Phone: [phone] LV RWT 0.56 [facility] Work Phone: [phone] LV stroke volume BP (ml) 48 mL [facility] Work Phone: [phone] LV stroke volume index BP 25.26 mL/m2 [facility] Work Phone: [phone] LVIDD 3.93 cm [facility] Work Phone: [phone] LVIDS 2.7 cm [facility] Work Phone: [phone] LVOT area 3.17 cm2 [facility] Work Phone: [phone] LVOT diameter 2.01 cm [facility] Work Phone: [phone] LVOT peak fidel 0.99 m/s [facility] Work Phone: [phone] LVOT peak VTI 21.3 cm [facility] Work Phone: [phone] [facility]OT stroke volume 68 cm3 [facility]: [phone] LVOT stroke volume index 35.55 ml/m2 [facility] Work Phone: [phone] MV mean gradient 3 mmHg [facility] Work Phone: [phone] MV peak gradient 6 mmHg [facility] Work Phone: [phone] MV valve area by continuity eq 2.61 cm2 [facility] Work Phone: [phone] MV VTI 25.92 cm [facility] Work Phone: [phone] MVA (continuity VTI) 2.6 cm [facility] Work Phone: [phone] [facility] AV VTI RATIO PRE STRESS 0.86 [facility] Work Phone: [phone] [facility] ECHO LV BIPLANE SYSTOLIC VOLUME INDEX 21.05 mL/m2 [facility] Work Phone: [facility] ECHO LV BP DIASTOLIC VOLUME INDEX 46.32 mL/m2 [facility] Work Phone: PV mean gradient 3 mmHg [facility] Work Phone: PV peak gradient 6 mmHg [facility] Work Phone: PV PK FIDEL 1.23 m/s [facility] Work Phone: PW 1.11 cm [facility] Work Phone: RA area 4CH (MOD) 22.74 cm2 [facility] Work Phone: RA vol index 4CH (MOD) 36.32 mL/m2 O [facility] Work Phone: Right atrium volume 4 chamber method of disks 69 mL [facility] Work Phone: RV Area diastolic 17.5 cm2 [facility] Work Phone: RV Area systolic 11.9 cm2 [facility] Work Phone: RV basal diam 4.56 cm [facility] Work Phone: RV Fractional area change 32 % [facility] Work Phone: RV long diam 6.91 cm [facility] Work Phone: RV mid diam 2.91 cm [facility] Work Phone: RV S' 12.81 cm/s [facility] Work Phone: RVOT peak gradient 5 mmHg [facility] Work Phone: RVOT peak fidel 1.07 m/s [facility] Work Phone: RVOT peak VTI 20.1 cm [facility] Work Phone: [phone] Sinus 2.97 cm [facility] Work Phone: [phone] STJ 2.58 cm [facility] Work Phone: [phone] Stroke Volume 68 cm/mL [facility] Work Phone: [phone] Stroke volume index 36 [facility] Work Phone: [phone] TAPSE 2.08 cm [facility] Work Phone: [phone] TR pk grad 26 mmHg [facility] Work Phone: [phone] TR pk fidel 2.53 m/s [facility] Work Phone: [phone] [facility] Work Phone: [phone] Cardiac echo study Procedure on 08-05-2024 [facility] Radiology Study observation (narrative) [facility] ECHOCARDIOGRAMon 08-05-2024 Echocardiography ? No prior [...] from the original result were not included. [facility] Facility [facility] Patient Information Patient Name ArmandOctober [...] Role Read Date Ezequiel Figueroa DO Echo [place] 08/05/2024 Left Heart Measurements LV - Systole [...] long di (more content not included)... Normal [facility] GLUCOSE POCon 08-05-2024 Glucose [Mass/Vol] 228 mg/dL High 70 - 179 mg/dL [facility] Interpretation and review of laboratory results Abnormal [facility] POC Sample Type CAPBL [facility] IONIZED CALCIUM, WHOLE BLOOD on 08-05-2024 ICA 4.72 mg/dL Normal 4.60-5.30 [facility] Comment on above: Performed By: #### S URGP #### [facility] (DEFAULT) [address] [address] ICA 4.69 mg/dL Normal 4.60-5.30 [facility] Comment on above: Performed By: #### S URGP #### [facility] (DEFAULT) [address] [place] [address] IONIZED CALCIUM, WHOLE BLOOD Ordered By: Jairo Layton on 08-05-2024 Calcium.ionized (Bld) [Moles/Vol] 4.69 mg/dL 4.60 - 5.30 mg/dL [facility] Interpretation and review of laboratory results Normal [facility] MAGNESIUMon 08-05-2024 Magnesium [Mass/Vol] 2.4 mg/dL Normal 1.6-2.6 [facility] Comment on above: Performed By: #### S URGP #### [facility] (DEFAULT) [address] [address] Magnesium [Mass/Vol] 1.8 mg/dL 1.6 - 2 .6 mg/dL [facility] Magnesium [Mass/Vol] 1.8 mg/dL Normal 1.6-2.6 [facility] Comment on above: Performed By: #### X M #### [facility] (DEFAULT) [address] [place] [address] No Panel Informationon 08-05 Interpretation and review of laboratory results Normal [facility] PHOSPHATE, INORGANICon 08-05 Phosphorous 3.2 mg/dL Normal 2.2-4.6 [facility] Comment on above: Performed By: #### S URGP #### [facility] (DEFAULT) [address] [place] [address] Phosphate [Mass/Vol] 2.7 mg/dL 2.2 - 4 .6 mg/dL [facility] Phosphorous 2.7 mg/dL Normal 2.2-4.6 [facility] Comment on above: Performed By: #### X M #### [facility] (DEFAULT) [address] [place] [address] [facility] AGOrde red By: Madhavi Mcelroy on 08-05-2024 Interpretation and review of laboratory results Abnormal [facility] vWf Ag actual/normal IA (PPP) [Relative mass conc] 230 % High 50 - 180 % [facility] CBC,PLATELETSon 08-04-2024 Erythrocyte distribution width (RBC) [Ratio] 13.7 % 10.8 - 14.9 % [facility] Hematocrit (Bld) [Volume fraction] 40.8 % 34.9 - 44.3 % [facility] Hemoglobin (Bld) [Mass/Vol] 12.7 g/dL 11.4 - 15.2 g/dL [facility] Interpretation and review of laboratory results Abnormal [facility] MCH (RBC) [Entitic mass] 28.7 pg 25.9 - 33.9 pg [facility] MCHC (RBC) [Mass/Vol] 31.1 g/dL Low 31.4 - 35.9 g/dL [facility] MCV (RBC) [Entitic vol] 92.1 fL 79.6 - 97.7 fL [facility] Platelet mean volume (Bld) [Entitic vol] 10.8 fL 8.5 - 12.2 fL [facility] Platelets (Bld) [#/Vol] 228 10*3/uL 150 - 393 K/uL [facility] RBC (Bld) [#/Vol] 4.43 10*6/uL [facility] WBC (Bld) [#/Vol] 11.41 10*3/uL High 3.99 - 11.19 K/uL [facility] Hematocrit (Bld) [Volume fraction] 40.8 % Normal 34.9-44.3 [facility] Comment on above: Performed By: #### H [facility] #### [facility] (DEFAULT) [address] [place] [address] Hemoglobin (Bld) [Mass/Vol] 12.7 g/dL Normal 11.4-15.2 [facility] Comment on above: Performed By: #### H [facility] #### [facility] (DEFAULT) [address] [place] [address] MCV (RBC) [Entitic vol] 92.1 fL Normal 79.6-97.7 O [facility] Comment on above: Performed By: #### H EMOGC #### [facility] (DEFAULT) [address] [address] Mean Cell Hgb 28.7 pg Normal 25.9-33.9 [facility] Comment on above: Performed By: #### H EMOGC #### [facility] (DEFAULT) [address] [address] Mean Cell Hgb Conc 31.1 g/dL Low 31.4-35.9 [facility] Comment on above: Performed By: #### H EMOGC #### [facility] (DEFAULT) [address] [address] Platelet mean volume (Bld) [Entitic vol] 10.8 fL Normal 8.5-12.2 [facility] Comment on above: Performed By: #### H EMO #### [facility] (DEFAULT) [address] [address] Platelets (Bld) [#/Vol] 228 10*3/uL Normal 150-393 [facility] Comment on above: Performed By: #### H EMO #### [facility] (DEFAULT) [address] [address] RBC (Bld) [#/Vol] 4.43 10*6/uL Normal 3.91-5.04 [facility] Comment on above: Performed By: #### H EMOGC #### [facility] (DEFAULT) [address] [address] RBC Distribution 13.7 % Normal 10.8-14.9 [facility] Comment on above: Performed By: #### H EMOGC #### [facility] (DEFAULT) [address] [address] WBC (Bld) [#/Vol] 11.41 10*3/uL High 3.99-11.19 [facility] Comment on above: Performed By: #### H [facility] #### [facility] (DEFAULT) [address] [place] [address] CHEM 7 (LYTES,BUN,CREA,GLUC) Ordered By: Lizette Canseco on 08-04-2024 Anion gap [Moles/Vol] 16 mmol/L 7 - 17 mmol/L [facility] Chloride [Moles/Vol] 109 mmol/L High 98 - 10 8 mmol/L [facility] CO2 [Moles/Vol] 24 mmol/L 21 - 31 mmol/L [facility] Creatinine [Mass/Vol] 1.47 mg/dL High 0.50 - 1.20 mg/dL [facility] eGFR, CKD-EPI, Female 36 Low - PINF [facility] Glucose [Mass/Vol] 181 mg/dL High 70 - 179 mg/dL [facility] Interpretation and review of laboratory results Abnormal [facility] Osmolality Calc [Osmolality] 312 High [facility] Potassium [Moles/Vol] 4 mmol/L 3.5 - 5.0 mmol/L [facility] Sodium [Moles/Vol] 145 mmol/L 135 - 145 mmol/L [facility] Urea nitrogen [Mass/Vol] 26 mg/dL High 7 - 25 mg/dL [facility] Urea nitrogen/Creatinine [Mass ratio] 18 mg/mg [facility] CHEM 7 (LYTES,BUN,CREA,GLUC) on 08-04-2024 Anion gap [Moles/Vol] 16 mmol/L Normal 7-17 [facility] Comment on above: Performed By: #### S URGP #### [facility] (DEFAULT) [address] [place] [address] Chloride [Moles/Vol] 109 mmol/L High 98-108 [facility] Comment on above: Performed By: #### S URGP #### [facility] (DEFAULT) [address] [place] [address] CO2 [Moles/Vol] 24 mmol/L Normal 21-31 [facility] Comment on above: Performed By: #### S URGP #### [facility] (DEFAULT) [address] [place] [address] Creatinine [Mass/Vol] 1.47 mg/dL High 0.50-1.20 [facility] Comment on above: Performed By: #### S URGP #### [facility] (DEFAULT) [address] [place] [address] GFR/1.73 sq M.predicted among non-blacks MDRD (S/P/Bld) [Vol rate/Area] 36 mL/min/{1.73_m2} Low >=60 [facility] Comment on above: Result Comment: Repo rted eGFR is based on the CKD-EPI 2020 equation using creatinine, age, and sex. Performed By: #### S URGP #### [facility] (DEFAULT) [address] [place] [address] Glucose [Mass/Vol] 181 mg/dL High Nonfastin -179 mg/dL; Fastin-99 [facility] Comment on above: Performed By: #### S URGP #### [facility] (DEFAULT) [address] [place] [address] Osmolality [Osmolality] 312 mosm/kg High 278-305 [facility] Comment on above: Performed By: #### S URGP #### [facility] (DEFAULT) [address] [place] [address] Potassium [Moles/Vol] 4.0 mmol/L Normal 3.5-5.0 [facility] Comment on above: Performed By: #### S URGP #### [facility] (DEFAULT) [address] [place] [address] Sodium [Moles/Vol] 145 mmol/L Normal 135-145 [facility] Comment on above: Performed By: #### S URGP #### [facility] (DEFAULT) [address] [place] [address] Urea nitrogen [Mass/Vol] 26 mg/dL High 7-25 [facility] Comment on above: Performed By: #### S URGP #### [facility] (DEFAULT) [address] [address] Urea nitrogen/Creatinine [Mass ratio] 18 mg/mg Normal [facility] Comment on above: Performed By: #### S URGP #### [facility] (DEFAULT) [address] [address] [address] HEAD WITHOUT CONTRASTon 0 08-04-2024 CT [...] sinuses are clear. IMPRESSION: Stable exam. Normal [facility] CT Head WO contraston 2024 RADIOLOGY RADIOLOGY [facility] CT Head WO contrastOrdered B y: Chirag Mendenhall on 08-04-2024 [facility] Work Phone: GLUCOSE POCon 08-04-2024 Glucose [Mass/Vol] 227 mg/dL High 70 - 179 mg/dL [facility] Interpretation and review of laboratory results Abnormal [facility] POC Sample Type VENO [facility] Glucose [Mass/Vol] 235 mg/dL High 70 - 179 mg/dL [facility] Interpretation and review of laboratory results Abnormal [facility] POC Sample Type VENO [facility] Glucose [Mass/Vol] 215 mg/dL High 70 - 179 mg/dL [facility] Interpretation and review of laboratory results Abnormal [facility] POC Sample [facility] Glucose [Mass/Vol] 178 mg/dL 70 - 179 mg/dL [facility] Glucose [Mass/Vol] 157 mg/dL 70 - 179 mg/dL [facility] Glucose [Mass/Vol] 271 mg/dL High 70 - 179 mg/dL [facility] Glucose [Mass/Vol] 267 mg/dL High 70 - 179 mg/dL [facility] Glucose [Mass/Vol] 246 mg/dL High 70 - 179 mg/dL [facility] IONIZED CALCIUM, WHOLE BLOOD Ordered By: Laura Rodriguez on 08-04-2024 Calcium.ionized (Bld) [Moles/Vol] 4.8 mg/dL 4.60 - 5.30 mg/dL [facility] Interpretation and review of laboratory results Normal [facility] IONIZED CALCIUM, WHOLE BLOOD on 08-04-2024 ICA 4.80 mg/dL Normal 4.60-5.30 [facility] Comment on above: Performed By: #### T YPEC #### [facility] (DEFAULT) [address] [place] [address] MAGNESIUMon 08-04-2024 Magnesium [Mass/Vol] 1.9 mg/dL 1.6 - 2 .6 mg/dL [facility] Magnesium [Mass/Vol] 1.9 mg/dL Normal 1.6-2.6 [facility] Comment on above: Performed By: #### X M #### [facility] (DEFAULT) [address] [place] [address] No Panel Informationon 08-04 POC Sample Type CAPBL [facility] Interpretation and review of laboratory results Abnormal [facility] Interpretation and review of laboratory results Normal [facility] PHOSPHATE, INORGANICon 08-04 Phosphate [Mass/Vol] 2.8 mg/dL 2.2 - 4 .6 mg/dL [facility] Phosphorous 2.8 mg/dL Normal 2.2-4.6 [facility] Comment on above: Performed By: #### X M #### [facility] (DEFAULT) [address] [place] [address] SODIUMon 08-04-2024 Interpretation and review of laboratory results Normal [facility] Sodium [Moles/Vol] 142 mmol/L 135 - 145 mmol/L [facility] Sodium [Moles/Vol] 142 mmol/L Normal 135-145 [facility] Comment on above: Order Comment: While on 3% Hypertonic Saline. Performed By: #### S URGP #### [facility] (DEFAULT) [address] [place] [address] Interpretation and review of laboratory results Normal [facility] Sodium [Moles/Vol] 141 mmol/L 135 - 145 mmol/L [facility] Sodium [Moles/Vol] 141 mmol/L Normal 135-145 [facility] Comment on above: Order Comment: 2 [...] bottle. Performed By: #### B LDCULT #### [facility] (DEFAULT) [address] [place] [address] Interpretation and review of laboratory results Normal [facility] Sodium [Moles/Vol] 143 mmol/L 135 - 145 mmol/L [facility] Sodium [Moles/Vol] 143 mmol/L Normal 135-145 [facility] Comment on above: Order Comment: While on 3% Hypertonic Saline. Performed By: #### H [facility] #### [facility] (DEFAULT) [address] [place] [address] ABORH TYPE RECONFIRMATIONon 08-03-2024 ABO/RH(D) TYPE Negative [facility] ABO/RH(D) TYPE Negative Normal [facility] Comment on above: Performed By: #### T YPEC #### [facility] (DEFAULT) [address] [place] [address] CBC,PLATELETSon 08-03-2024 Erythrocyte distribution width (RBC) [Ratio] 13.2 % 10.8 - 14.9 % [facility] Hematocrit (Bld) [Volume fraction] 42.8 % 34.9 - 44.3 % [facility] Hemoglobin (Bld) [Mass/Vol] 13.5 g/dL 11.4 - 15.2 g/dL [facility] Interpretation and review of laboratory results Normal [facility] MCH (RBC) [Entitic mass] 29.2 pg 25.9 - 33.9 pg [facility] MCHC (RBC) [Mass/Vol] 31.5 g/dL 31.4 - 35.9 g/dL [facility] MCV (RBC) [Entitic vol] 92.4 fL 79.6 - 97.7 fL [facility] Platelet mean volume (Bld) [Entitic vol] 11.2 fL 8.5 - 12.2 fL [facility] Platelets (Bld) [#/Vol] 227 10*3/uL 150 - 393 K/uL [facility] RBC (Bld) [#/Vol] 4.63 10*6/uL [facility] WBC (Bld) [#/Vol] 8.43 10*3/uL 3.99 - 11.19 K/uL [facility] Hematocrit (Bld) [Volume fraction] 42.8 % Normal 34.9-44.3 [facility] Comment on above: Performed By: #### X M #### [facility] (DEFAULT) [address] [place] [address] Hemoglobin (Bld) [Mass/Vol] 13.5 g/dL Normal 11.4-15.2 [facility] Comment on above: Performed By: #### X M #### [facility] (DEFAULT) [address] [address] MCV (RBC) [Entitic vol] 92.4 fL Normal 79.6-97.7 [facility] Comment on above: Performed By: #### X M #### [facility] (DEFAULT) [address] [address] Mean Cell Hgb 29.2 pg Normal 25.9-33.9 [facility] Comment on above: Performed By: #### X M #### [facility] (DEFAULT) [address] [address] Mean Cell Hgb Conc 31.5 g/dL Normal 31.4-35.9 [facility] Comment on above: Performed By: #### X M #### [facility] (DEFAULT) [address] [place] [address] Platelet mean volume (Bld) [Entitic vol] 11.2 fL Normal 8.5-12.2 [facility] Comment on above: Performed By: #### X M #### [facility] (DEFAULT) [address] [address] Platelets (Bld) [#/Vol] 227 10*3/uL Normal 150-393 [facility] Comment on above: Performed By: #### X M #### [facility] (DEFAULT) [address] [place] [address] RBC (Bld) [#/Vol] 4.63 10*6/uL Normal 3.91-5.04 [facility] Comment on above: Performed By: #### X M #### [facility] (DEFAULT) [address] [place] [address] RBC Distribution 13.2 % Normal 10.8-14.9 [facility] Comment on above: Performed By: #### X M #### [facility] (DEFAULT) [address] [place] [address] WBC (Bld) [#/Vol] 8.43 10*3/uL Normal 3.99-11.19 [facility] Comment on above: Performed By: #### X M #### [facility] (DEFAULT) [address] [place] [address] CHEM 7 (LYTES,BUN,CREA,GLUC) on 08-03-2024 Anion gap [Moles/Vol] 16 mmol/L 7 - 17 mmol/L [facility] Chloride [Moles/Vol] 103 mmol/L 98 - 10 8 mmol/L [facility] CO2 [Moles/Vol] 23 mmol/L 21 - 31 mmol/L [facility] Creatinine [Mass/Vol] 1.35 mg/dL High 0.50 - 1.20 mg/dL [facility] eGFR, CKD-EPI, Female 40 Low - PINF [facility] Glucose [Mass/Vol] 151 mg/dL 70 - 179 mg/dL [facility] Interpretation and review of laboratory results Abnormal [facility] Osmolality Calc [Osmolality] 295 [facility] Potassium [Moles/Vol] 4.3 mmol/L 3.5 - 5.0 mmol/L [facility] Sodium [Moles/Vol] 138 mmol/L 135 - 145 mmol/L [facility] Urea nitrogen [Mass/Vol] 18 mg/dL 7 - 25 mg/dL [facility] Urea nitrogen/Creatinine [Mass ratio] 13 mg/mg [facility] Anion gap [Moles/Vol] 16 mmol/L Normal 7-17 [facility] Comment on above: Performed By: #### S URGP #### [facility] (DEFAULT) [address] [place] [address] Chloride [Moles/Vol] 103 mmol/L Normal 98-108 [facility] Comment on above: Performed By: #### S URGP #### [facility] (DEFAULT) [address] [place] [address] CO2 [Moles/Vol] 23 mmol/L Normal 21-31 [facility] Comment on above: Performed By: #### S URGP #### [facility] (DEFAULT) [address] [place] [address] Creatinine [Mass/Vol] 1.35 mg/dL High 0.50-1.20 [facility] Comment on above: Performed By: #### S URGP #### [facility] (DEFAULT) [address] [place] [address] GFR/1.73 sq M.predicted among non-blacks MDRD (S/P/Bld) [Vol rate/Area] 40 mL/min/{1.73_m2} Low >=60 [facility] Comment on above: Result Comment: Repo rted eGFR is based on the CKD-EPI 2020 equation using creatinine, age, and sex. Performed By: #### S URGP #### [facility] (DEFAULT) [address] [place] [address] Glucose [Mass/Vol] 151 mg/dL Normal Nonfastin -179 mg/dL; Fastin-99 [facility] Comment on above: Performed By: #### S URGP #### [facility] (DEFAULT) [address] [place] [address] 18589 Osmolality [Osmolality] 295 mosm/kg Normal 278-305 [facility] Comment on above: Performed By: #### S URGP #### [facility] (DEFAULT) [address] [place] [address] 35467 Potassium [Moles/Vol] 4.3 mmol/L Normal 3.5-5.0 [facility] Comment on above: Result Comment: Spec imen slightly hemolyzed. Potassium results may be falsey elevated by more than 0.5 mmol/L. Consider recollection. Performed By: #### S URGP #### [facility] (DEFAULT) [address] [place] [address] 15869 Sodium [Moles/Vol] 138 mmol/L Normal 135-145 [facility] Comment on above: Performed By: #### S URGP #### [facility] (DEFAULT) [address] [place] [address] 15568 Urea nitrogen [Mass/Vol] 18 mg/dL Normal 7-25 [facility] Comment on above: Performed By: #### S URGP #### [facility] (DEFAULT) [address] [place] [address] 75323 Urea nitrogen/Creatinine [Mass ratio] 13 mg/mg Normal [facility] Comment on above: Performed By: #### S URGP #### [facility] (DEFAULT) [address] [place] [address] CHEST WITH CONTRAST [facility] TRAUMAon 08-03-2024 CT CHEST WITH [...] have reviewed and approved this report. Normal [facility] CT Cervical spine WO contras ton 08-03-2024 RADIOLOGY RADIOLOGY [facility] CT Cervical spine WO contras tOrdered By: Alissa Chun on 08-03-2024 [facility] Work Phone: CT Chest W contrast Seth RADIOLOGY RADIOLOGY [facility] CT Chest W contrast IVOrdere d By: Kayla Newell on 08-03-2024 [facility] Work Phone: CT HEAD WITHOUT CONTRASTon 0 [...] since the MRI from earlier today Normal [facility] CT Head WO contraston 2024 Radiology Study observation (narrative) [facility] RADIOLOGY RADIOLOGY [facility] Radiology Study observation (narrative) [facility] CT ORBITS WITHOUT CONTRASTon 08-03-2024 CT [...] basal ganglia hyperdensity concerning for hemorrhage. Normal [facility] CT Orbit WO contraston 08-03 RADIOLOGY RADIOLOGY [facility] CT SPINE CERVICAL WITHOUT CO NTRASTon [...] No evidence of acute fractures identified Normal [facility] EXTRA MICROon 08-03-2024 [facility] GLUCOSE POCon 08-03-2024 Glucose [Mass/Vol] 161 mg/dL 70 - 179 mg/dL [facility] POC Sample Type CAPBL [facility] IONIZED CALCIUM, WHOLE BLOOD Ordered By: Alejandra Ness on 08-03-2024 Calcium.ionized (Bld) [Moles/Vol] 4.24 mg/dL Low 4.60 - 5.30 mg/dL [facility] Interpretation and review of laboratory results Abnormal [facility] IONIZED CALCIUM, WHOLE BLOOD on 08-03-2024 ICA 4.24 mg/dL Low 4.60-5.30 [facility] Comment on above: Performed By: #### H [facility] #### [facility] (DEFAULT) [address] [place] [address] MAGNESIUMon 08-03-2024 Magnesium [Mass/Vol] 2.1 mg/dL 1.6 - 2 .6 mg/dL [facility] Magnesium [Mass/Vol] 2.1 mg/dL Normal 1.6-2.6 [facility] Comment on above: Performed By: #### S URGP #### [facility] (DEFAULT) [address] [address] MR Brain WO contraston 08-03 RADIOLOGY RADIOLOGY [facility] Radiology Study observation (narrative) [facility] MR Cervical spine WO contras ton 08-03-2024 RADIOLOGY RADIOLOGY [facility] Radiology Study observation (narrative) [facility] MR Cervical spine WO contras tOrdered By: Kuldeep Tavares on 08-03-2024 [facility] Work Phone: MRI BRAIN WITHOUT CONTRASTon 08-03-2024 [...] tiny 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 Normal [facility] MRI SPINE CERVICAL WITHOUT C ONTRASTon [...] have reviewed and approved this report. Normal [facility] NT-PRO B-TYPE NATRIURETIC PE PTIDEon 08-03-2024 Interpretation and review of laboratory results Abnormal [facility] Natriuretic peptide.B prohormone N-Terminal IA [Mass/Vol] 1115 pg/mL High NINF - 540 pg/mL [facility] No Panel Informationon 08-03 RADIOLOGY RADIOLOGY [facility] Interpretation and review of laboratory results Normal [facility] No Panel InformationOrdered By: Richard Sánchez on 08-03-2024 [facility] Work Phone: PHOSPHATE, INORGANICon 08-03 Phosphate [Mass/Vol] 3.5 mg/dL 2.2 - 4 .6 mg/dL [facility] Phosphorous 3.5 mg/dL Normal 2.2-4.6 [facility] Comment on above: Performed By: #### S URGP #### [facility] (DEFAULT) [address] [place] [address] SCREEN: MRSA/MSSAOrdered By: Gail Collado on 08-03-2024 Interpretation and review of laboratory results Normal [facility] Methicillin Resistant S. Aureus By Pcr Negative Negative [facility] Staphylococcus Aureus By Pcr Negative Negative [facility] SODIUMon 08-03-2024 Interpretation and review of laboratory results Normal [facility] Sodium [Moles/Vol] 139 mmol/L 135 - 145 mmol/L [facility] Sodium [Moles/Vol] 139 mmol/L Normal 135-145 [facility] Comment on above: Order Comment: While on 3% Hypertonic Saline. Performed By: #### N AO ####[facility] (DEFAULT)[address] [place] [address] Interpretation and review of laboratory results Abnormal [facility] Sodium [Moles/Vol] 134 mmol/L Low 135 - 145 mmol/L [facility] Sodium [Moles/Vol] 134 mmol/L Low 135-145 [facility] Comment on above: Order Comment: While on 3% Hypertonic Saline. Performed By: #### H EMOGC #### [facility] (DEFAULT) [address] [place] [address] XR ABDOMEN 1 VIEW PORTABLEon 08-03-2024 XR [...] proximal second portion of the duodenum. Normal [facility] XR Abdomen Single viewon RADIOLOGY RADIOLOGY [facility] Radiology Study observation (narrative) [facility] XR Abdomen Single viewOrdere d By: Huey Gibson on 08-03-2024 [facility] XR ELBOW RIGHT 2 VIEWSon XR ELBOW RIGHT 2 VIEWS EXAM: XR ELBOW RI GHT 2 VIEWS, XR HUMERUS RIGHT 2+ VIEWS, XR WRIST RIGHT 3+ VIEWS, 08/02/2024 23:24 PM (accession [id number]), 08/02/2024 23:24 PM (accession [id number]), 08/02/2024 23:23 PM (accession [id number]) COMPARISON: No prior studies available for comparison. [...] dislocation. IMPRESSION: No acute osseous abnormality. Normal [facility] XR HUMERUS RIGHT 2+ VIEWSon 08-03-2024 XR HUMERUS RIGHT 2+ VIEWS EXAM: XR ELBOW RIGHT 2 VIEWS, XR HUMERUS RIGHT 2+ VIEWS, XR WRIST RIGHT 3+ VIEWS, 08/02/2024 23:24 PM (accession [id number]), 08/02/2024 23:24 PM (accession [id number]), 08/02/2024 23:23 PM (accession [id number]) COMPARISON: No prior studies available for comparison. [...] dislocation. IMPRESSION: No acute osseous abnormality. Normal [facility] XR WRIST RIGHT 3+ VIEWSon XR WRIST RIGHT 3+ VIEWS EXAM: XR ELBOW R IGHT 2 VIEWS, XR HUMERUS RIGHT 2+ VIEWS, XR WRIST RIGHT 3+ VIEWS, 08/02/2024 23:24 PM (accession [id number]), 08/02/2024 23:24 PM (accession [id number]), 08/02/2024 23:23 PM (accession [id number]) COMPARISON: No prior studies available for comparison. [...] or dislocation. IMPRESSION: No acute osseous abnormality. [facility] 12 Lead EKGon 08-02-2024 12 Lead EKG [facility] Cardiovascular Services [address] [place] [address] 12 Lead EKG 08/02/24 1309 MR#: [id number] Acct: [id number] Name: LINDSAY ACUNA Rep #: [id number] : 1945 78 From: Mj Benavides MD [...] ECG Confirmed by MAKAYLA LAWSON, MJ ([id number]), primer expeditor and drier NAIMA BEARDEN ([id number]) on 08/05/2024 6:47:07 AM Referred By: Confirmed By: MJ BENAVIDES MD 08/05/24 0647 Date Mj Benavides MD CC: Dr. Pieter Morgan MD; Dr. Kameron Caruso MD Signed Normal [facility] Absolute lymphocyte countOrd ered By: Pieter Morgan on 08-02-2024 Lymphocytes Auto (Unsp spec) [#/Vol] 1.56 10*3/uL 0.83-4.51 [facility] Absolute neutrophil countOrd ered By: Pieter Morgan on 08-02-2024 Neutrophils (Bld) [#/Vol] 6.2 10*3/uL 2.0-7.7 [facility] Activated partial thrombopla stin time (aPTT) in platelet poor plasma by coagulation aOrdered By: Pieter Morgan on 08-02-2024 aPTT Coag (PPP) [Time] 28.4 s 24.1-36.2 [facility] Anion gap in Serum or Plasma Ordered By: Pieter Morgan on 08-02-2024 Anion gap [Moles/Vol] 12 mmol/L 5-15 [facility] Automated lymphocyte count a s percentage of total leukocytesOrdered By: Pieter Morgan on 08-02-2024 Lymphocytes/100 WBC Auto (Unsp spec) 17.9 % Low 19-41 [facility] BUN/creatinine ratioOrdered By: Pieter Morgan on 08-02-2024 Urea nitrogen/Creatinine [Mass ratio] 11.6 mg/mg 03-03 [facility] Basic Metabolic Profile (BMP )on 08-02-2024 BUN/CRE 11.6 RATIO Normal 03-03 [facility] Comment on above: Performed By: #### L 300.4310, L501.4021, L300.3900, L500.2500, L100.0100 #### [facility] [address] [place], [address] Calcium [Mass/Vol] 9.0 mg/dL Normal 7.6-11.0 [facility] Comment on above: Performed By: #### L 300.4310, L501.4021, L300.3900, L500.2500, L100.0100 #### [facility] [address] [place], [address] Chloride [Moles/Vol] 98 mmol/L Normal 98-108 [facility] Comment on above: Performed By: #### L 300.4310, L501.4021, L300.3900, L500.2500, L100.0100 #### [facility] [address] [place], [address] CO2 [Moles/Vol] 22.0 mmol/L Normal 21.0-32.0 [facility] Comment on above: Performed By: #### L 300.4310, L501.4021, L300.3900, L500.2500, L100.0100 #### [facility] [address] [place], [address] Creatinine [Mass/Vol] 1.74 mg/dL High 0.70-1.20 [facility] Comment on above: Performed By: #### L 300.4310, L501.4021, L300.3900, L500.2500, L100.0100 #### [facility] [address] [place], [address] ECRCL 27.14 ml/min Low 50-250 [facility] Comment on above: Performed By: #### L 300.4310, L501.4021, L300.3900, L500.2500, L100.0100 #### [facility] [address] [place], [address] GAP 12 Normal 5-15 [facility] Comment on above: Performed By: #### L 300.4310, L501.4021, L300.3900, L500.2500, L100.0100 #### [facility] [address] [place], [address] GFR/1.73 sq M.predicted among non-blacks MDRD (S/P/Bld) [Vol rate/Area] 29 mL/min/{1.73_m2} Low >60 [facility] Comment on above: Result Comment: mL/m in/1.73m2 CKD-EPI Creatinine Equation (2020) Performed By: #### L 300.4310, L501.4021, L300.3900, L500.2500, L100.0100 #### [facility] [address] [place], [address] Glucose [Mass/Vol] 235 mg/dL High 70-99 [facility] Comment on above: Performed By: #### L 300.4310, L501.4021, L300.3900, L500.2500, L100.0100 #### [facility] [address] [place], [address] Potassium [Moles/Vol] 4.2 mmol/L Normal 3.3-5.1 [facility] Comment on above: Performed By: #### L 300.4310, L501.4021, L300.3900, L500.2500, L100.0100 #### [facility] [address] [place], [address] Sodium [Moles/Vol] 132 mmol/L Low 133-145 [facility] Comment on above: Performed By: #### L 300.4310, L501.4021, L300.3900, L500.2500, L100.0100 #### [facility] [address] [place], [address] Urea nitrogen [Mass/Vol] 20 mg/dL High 4-19 [facility] Comment on above: Performed By: #### L 300.4310, L501.4021, L300.3900, L500.2500, L100.0100 #### [facility] [address] [place], [address] Basophil percentageOrdered B y: Pieter Morgan on 08-02-2024 Basophils/100 WBC (Bld) 0.5 % 0-1 [facility] CBC W/Diff, Automatedon 07-14 Absolute Lymph 1.56 X10 3/uL Normal 0.83-4.51 [facility] Comment on above: Performed By: #### L 300.4310, L501.4021, L300.3900, L500.2500, L100.0100 #### [facility] [address] [place], [address] Absolute Neut 6.2 X10 3/uL Normal 2.0-7.7 [facility] Comment on above: Performed By: #### L 300.4310, L501.4021, L300.3900, L500.2500, L100.0100 #### [facility] [address] [place], [address] Basophils/100 WBC (Bld) 0.5 % Normal 0-1 [facility] Comment on above: Performed By: #### L 300.4310, L501.4021, L300.3900, L500.2500, L100.0100 #### [facility] [address] [place], [address] Eosinophils/100 WBC (Bld) 1.0 % Normal 0-5 [facility] Comment on above: Performed By: #### L 300.4310, L501.4021, L300.3900, L500.2500, L100.0100 #### [facility] [address] [place], [address] Erythrocyte distribution width (RBC) [Ratio] 13.3 % Normal 11.6-14.6 [facility] Comment on above: Performed By: #### L 300.4310, L501.4021, L300.3900, L500.2500, L100.0100 #### [facility] [address] [place], [address] Hematocrit (Bld) [Volume fraction] 42.0 % Normal 37-47 [facility] Comment on above: Performed By: #### L 300.4310, L501.4021, L300.3900, L500.2500, L100.0100 #### [facility] [address] [place], [address] Hemoglobin (Bld) [Mass/Vol] 13.8 g/dL Normal 12.0-15.0 [facility] Comment on above: Performed By: #### L 300.4310, L501.4021, L300.3900, L500.2500, L100.0100 #### [facility] [address] [place], [address] IG% 0.300 Normal 0.0-0.9 [facility] Comment on above: Result Comment: IG% - Immature Granulocytes (promyelocytes, myelocytes and metamyelocytes) > 1% indicates that a LEFT SHIFT is Present. Performed By: #### L 300.4310, L501.4021, L300.3900, L500.2500, L100.0100 #### [facility] [address] [place], [address] Lymphocytes/100 WBC (Bld) 17.9 % Low 19-41 [facility] Comment on above: Performed By: #### L 300.4310, L501.4021, L300.3900, L500.2500, L100.0100 #### [facility] [address] [place], [address] MCH (RBC) [Entitic mass] 30.3 pg Normal 27.0-32.0 [facility] Comment on above: Performed By: #### L 300.4310, L501.4021, L300.3900, L500.2500, L100.0100 #### [facility] [address] [place], [address] MCHC (RBC) [Mass/Vol] 32.9 g/dL Normal 32-36 [facility] Comment on above: Performed By: #### L 300.4310, L501.4021, L300.3900, L500.2500, L100.0100 #### [facility] [address] [place], [address] MCV (RBC) [Entitic vol] 92.1 fL Normal 81-99 [facility] Comment on above: Performed By: #### L 300.4310, L501.4021, L300.3900, L500.2500, L100.0100 #### [facility] [address] [place], [address] Monocytes/100 WBC (Bld) 8.9 % Normal 0-10 [facility] Comment on above: Performed By: #### L 300.4310, L501.4021, L300.3900, L500.2500, L100.0100 #### [facility] [address] [place], [address] Neutrophils/100 WBC (Bld) 71.4 % High 47-70 [facility] Comment on above: Performed By: #### L 300.4310, L501.4021, L300.3900, L500.2500, L100.0100 #### [facility] [address] [place], [address] Nucleated RBC (Bld) [#/Vol] 0 10*3/uL Normal 0-5 [facility] Comment on above: Performed By: #### L 300.4310, L501.4021, L300.3900, L500.2500, L100.0100 #### [facility] [address] [place], [address] Platelet mean volume (Bld) [Entitic vol] 10.7 fL Normal 6.2-12.0 [facility] Comment on above: Performed By: #### L 300.4310, L501.4021, L300.3900, L500.2500, L100.0100 #### [facility] [address] [place], [address] Platelets (Bld) [#/Vol] 214 10*3/uL Normal 150-450 [facility] Comment on above: Performed By: #### L 300.4310, L501.4021, L300.3900, L500.2500, L100.0100 #### [facility] [address] [place], [address] RBC (Bld) [#/Vol] 4.56 10*6/uL Normal 4.2-5.4 [facility] Comment on above: Performed By: #### L 300.4310, L501.4021, L300.3900, L500.2500, L100.0100 #### [facility] [address] [place], [address] RDW SD 45.3 fl High 35.1-43.9 [facility] Comment on above: Performed By: #### L 300.4310, L501.4021, L300.3900, L500.2500, L100.0100 #### [facility] [address] [place], [address] WBC (Bld) [#/Vol] 8.7 10*3/uL Normal 4.4-11.0 [facility] Comment on above: Performed By: #### L 300.4310, L501.4021, L300.3900, L500.2500, L100.0100 #### [facility] [address] [facility] [place], [address] CBC,PLATELETSon 08-02-2024 Erythrocyte distribution width (RBC) [Ratio] 13.3 % 10.8 - 14.9 % [facility] Hematocrit (Bld) [Volume fraction] 43.8 % 34.9 - 44.3 % [facility] Hemoglobin (Bld) [Mass/Vol] 14 g/dL 11.4 - 15.2 g/dL [facility] Interpretation and review of laboratory results Normal [facility] MCH (RBC) [Entitic mass] 29.4 pg 25.9 - 33.9 pg [facility] MCHC (RBC) [Mass/Vol] 32 g/dL 31.4 - 35.9 g/dL [facility] MCV (RBC) [Entitic vol] 92 fL 79.6 - 97.7 fL [facility] Platelet mean volume (Bld) [Entitic vol] 10.8 fL 8.5 - 12.2 fL [facility] Platelets (Bld) [#/Vol] 245 10*3/uL 150 - 393 K/uL [facility] RBC (Bld) [#/Vol] 4.76 10*6/uL [facility] WBC (Bld) [#/Vol] 8.16 10*3/uL 3.99 - 11.19 K/uL [facility] Hematocrit (Bld) [Volume fraction] 43.8 % Normal 34.9-44.3 [facility] Comment on above: Performed By: #### B LDCULT #### [facility] (DEFAULT) [address] [place] [address] Hemoglobin (Bld) [Mass/Vol] 14.0 g/dL Normal 11.4-15.2 [facility] Comment on above: Performed By: #### B LDCULT #### [facility] (DEFAULT) [address] [place] [address] MCV (RBC) [Entitic vol] 92.0 fL Normal 79.6-97.7 [facility] Comment on above: Performed By: #### B LDCULT #### [facility] (DEFAULT) [address] [place] [address] Mean Cell Hgb 29.4 pg Normal 25.9-33.9 [facility] Comment on above: Performed By: #### B LDCULT #### [facility] (DEFAULT) [address] [place] [address] Mean Cell Hgb Conc 32.0 g/dL Normal 31.4-35.9 [facility] Comment on above: Performed By: #### B LDCULT #### [facility] (DEFAULT) [address] [place] [address] Platelet mean volume (Bld) [Entitic vol] 10.8 fL Normal 8.5-12.2 [facility] Comment on above: Performed By: #### B LDCULT #### [facility] (DEFAULT) [address] [place] [address] Platelets (Bld) [#/Vol] 245 10*3/uL Normal 150-393 [facility] Comment on above: Performed By: #### B LDCULT #### [facility] (DEFAULT) [address] [place] [address] RBC (Bld) [#/Vol] 4.76 10*6/uL Normal 3.91-5.04 [facility] Comment on above: Performed By: #### B LDCULT #### [facility] (DEFAULT) [address] [place] [address] RBC Distribution 13.3 % Normal 10.8-14.9 [facility] Comment on above: Performed By: #### B LDCULT #### [facility] (DEFAULT) [address] [place] [address] WBC (Bld) [#/Vol] 8.16 10*3/uL Normal 3.99-11.19 [facility] Comment on above: Performed By: #### B LDCULT #### [facility] (DEFAULT) [address] [place] [address] CHEM 7 (LYTES,BUN,CREA,GLUC) on 08-02-2024 Anion gap [Moles/Vol] 16 mmol/L 7 - 17 mmol/L [facility] Chloride [Moles/Vol] 105 mmol/L 98 - 10 8 mmol/L [facility] CO2 [Moles/Vol] 22 mmol/L 21 - 31 mmol/L [facility] Creatinine [Mass/Vol] 1.37 mg/dL High 0.50 - 1.20 mg/dL [facility] eGFR, CKD-EPI, Female 39 Low - PINF [facility] Glucose [Mass/Vol] 210 mg/dL High 70 - 179 mg/dL [facility] Osmolality Calc [Osmolality] 299 [facility] Potassium [Moles/Vol] 3.7 mmol/L 3.5 - 5.0 mmol/L [facility] Sodium [Moles/Vol] 139 mmol/L 135 - 145 mmol/L [facility] Urea nitrogen [Mass/Vol] 18 mg/dL 7 - 25 mg/dL [facility] Urea nitrogen/Creatinine [Mass ratio] 13 [facility] gap [Moles/Vol] 16 mmol/L Normal 7-17 [facility] Comment on above: Performed By: #### H EMOGC #### [facility] (DEFAULT) [address] [place] [address] Chloride [Moles/Vol] 105 mmol/L Normal 98-108 [facility] Comment on above: Performed By: #### H EMO #### [facility] (DEFAULT) [address] [place] [address] CO2 [Moles/Vol] 22 mmol/L Normal 21-31 [facility] Comment on above: Performed By: #### H EMO #### [facility] (DEFAULT) [address] [place] [address] Creatinine [Mass/Vol] 1.37 mg/dL High 0.50-1.20 [facility] Comment on above: Performed By: #### H EMO #### [facility] (DEFAULT) [address] [place] [address] GFR/1.73 sq M.predicted among non-blacks MDRD (S/P/Bld) [Vol rate/Area] 39 mL/min/{1.73_m2} Low >=60 [facility] Comment on above: Result Comment: Repo rted eGFR is based on the CKD-EPI 2020 equation using creatinine, age, and sex. Performed By: #### H EMO #### [facility] (DEFAULT) [address] [place] [address] Glucose [Mass/Vol] 210 mg/dL High Nonfastin -179 mg/dL; Fastin-99 [facility] Comment on above: Performed By: #### H EMO #### [facility] (DEFAULT) [address] [place] [address] Osmolality [Osmolality] 299 mosm/kg Normal 278-305 [facility] Comment on above: Performed By: #### H EMO #### [facility] (DEFAULT) [address] [place] [address] Potassium [Moles/Vol] 3.7 mmol/L Normal 3.5-5.0 [facility] Comment on above: Performed By: #### H EMOGC #### [facility] (DEFAULT) [address] [place] [address] Sodium [Moles/Vol] 139 mmol/L Normal 135-145 [facility] Comment on above: Performed By: #### H EMOGC #### [facility] (DEFAULT) [address] [place] [address] Urea nitrogen [Mass/Vol] 18 mg/dL Normal - [facility] Comment on above: Performed By: #### H EMOGC #### [facility] (DEFAULT) [address] [place] [address] Urea nitrogen/Creatinine [Mass ratio] 13 mg/mg Normal [facility] Comment on above: Performed By: #### H EMOGC #### [facility] (DEFAULT) [address] [place] [address] ABDOMEN/PELVIS WITH CONTR AST VASCULAR TRAUMAon [...] grade: None. Kidney trauma grade: None. Normal [facility] CT Abdomen and Pelvis W cont rast Seth 08-02-2024 RADIOLOGY RADIOLOGY [facility] CT Abdomen and Pelvis W cont rast IVOrdered By: Edson Head on 08-02-2024 [facility] Work Phone: CT Cervical spine WO contras ton 08-02-2024 Radiology Study observation (narrative) [facility] CT Orbit WO contraston 08-02 Radiology Study observation (narrative) [facility] Carbon dioxide, total [Moles /volume] in Central venous bloodOrdered By: Pieter Morgan on 08-02-2024 CO2 [Moles/Vol] 22.0 mmol/L 21.0-32.0 [facility] Chloride assayOrdered By: Racheal Morgan on 08-02-2024 Chloride [Moles/Vol] 98 mmol/L 98-108 [facility] Emergency Department Summary on 08-02-2024 Emergency Department Summary [facility] Medical Records Department [address] [place] [address] Emergency Department Summary 08/02/24 MR#: [id number] Acct: [id number] Name: LINDSAY ACUNA Rep #: [id number] : 1945 78 From: Pieter Morgan MD [...] better, but she is "on round 2." [facility] Medical History Paroxysmal atrial fibrillation with [...] normal respir (more content not included)... Normal [facility] Eosinophil percentageOrdered By: Pieter Morgan on 08-02-2024 Eosinophils/100 WBC (Bld) 1.0 % 0-5 [facility] Erythrocyte distribution wid th ratioOrdered By: Pieter Morgan on 08-02-2024 Erythrocyte distribution width (RBC) [Ratio] 13.3 % 11.6-14.6 [facility] Erythrocyte distribution wid th standard deviationOrdered By: Pieter Morgan on 08-02-2024 Erythrocyte distribution width (RBC) [Entitic vol] 45.3 fL High 35.1-43.9 [facility] Erythrocyte distribution width (RBC) [Ratio] 45.3 fl High 35.1-43.9 [facility] Estimation of creatinine mackenzie aranceOrdered By: Pieter Morgan on 08-02-2024 Estimated Creatinine Clearance Calc 27.14 ml/min Low 50-250 [facility] GFR/1.73 sq M.predicted lana g non-blacks MDRD (S/P/Bld) [Vol rate/Area]Ordered By: Pieter Morgan on 08-02-2024 Estimated GFR (MDRD) Non-Af Amer 29 Low >60 [facility] Comment on above: mL/min/1.73m2 CKD-EP I Creatinine Equation (2020) Glomerular filtration rate ( GFR) estimation/1.73 sq m using serum, plasma, or whole bOrdered By: Pieter Morgan on 08-02-2024 GFR/1.73 sq M.predicted among non-blacks MDRD (S/P/Bld) [Vol rate/Area] 29 mL/min/{1.73_m2} Low >60 [facility] Comment on above: mL/min/1.73m2 CKD-EP I Creatinine Equation (2020) HEMOGLOBIN A1Con 08-02-2024 Average glucose Estimated from glycated hemoglobin (Bld) [Mass/Vol] 177 mg/dL [facility] HbA1c (Bld) [Mass fraction] 7.8 % High 4.7 - 5.6 % [facility] Interpretation and review of laboratory results Abnormal [facility] Glucose [Mass/Vol] 177 mg/dL Normal [facility] Comment on above: Performed By: #### H EMOGC #### [facility] (DEFAULT) [address] [place] [address] Hemoglobin A1C HPLC 7.8 % High 4.7-5.6 [facility] Comment on above: Performed By: #### H EMOGC #### [facility] (DEFAULT) [address] [place] [address] HEPATIC FUNCTION PANELon Albumin [Mass/Vol] 3.5 g/dL 3.5 - 5.0 g/dL [facility] ALP [Catalytic activity/Vol] 117 U/L 32 - 126 U/L [facility] ALT [Catalytic activity/Vol] 10 U/L 9 - 48 U/L [facility] AST [Catalytic activity/Vol] 17 U/L 10 - 39 U/L [facility] Bilirubin [Mass/Vol] 0.6 mg/dL NINF - 1.5 mg/dL [facility] Bilirubin.direct [Mass/Vol] 0.1 mg/dL NINF - 0.3 mg/dL [facility] Protein [Mass/Vol] 6.3 g/dL Low 6.4 - 8.3 g/dL [facility] Albumin [Mass/Vol] 3.5 g/dL Normal 3.5-5.0 [facility] Comment on above: Performed By: #### H EMO #### [facility] (DEFAULT) [address] [place] [address] ALP [Catalytic activity/Vol] 117 U/L Normal 32-126 [facility] Comment on above: Performed By: #### H EMO #### [facility] (DEFAULT) [address] [place] [address] ALT [Catalytic activity/Vol] 10 U/L Normal 9-48 [facility] Comment on above: Performed By: #### H EMOGC #### [facility] (DEFAULT) [address] [place] [address] AST [Catalytic activity/Vol] 17 U/L Normal 10-39 [facility] Comment on above: Performed By: #### H EMOGC #### [facility] (DEFAULT) [address] [address] Bilirubin [Mass/Vol] 0.6 mg/dL Normal <1.5 [facility] Comment on above: Performed By: #### H EMOGC #### [facility] (DEFAULT) [address] [address] Bilirubin.indirect [Mass/Vol] 0.1 mg/dL Normal <0.3 [facility] Comment on above: Performed By: #### H EMOGC #### [facility] (DEFAULT) [address] [address] Protein [Mass/Vol] 6.3 g/dL Low 6.4-8.3 [facility] Comment on above: Performed By: #### H EMOGC #### [facility] (DEFAULT) [address] [address] HIGH SENSITIVITY TROPONIN I - SINGLE ORDERon 08-02-2024 Interpretation and review of laboratory results Normal [facility] Troponin I.cardiac High sensitivity method [Mass/Vol] 9 ng/L NINF - 34 ng/L [facility] hs-Troponin I 9 ng/L Normal <34 [facility] Comment on above: Order Comment: [...] bottle. Performed By: #### B LDCULT #### [facility] (DEFAULT) [address] [place] [address] Hematocrit Auto (Bld) [Volum e fraction]Ordered By: Pieter Morgan on 08-02-2024 Hematocrit (Bld) [Volume fraction] 42.0 % 37-47 [facility] Hemoglobin measurementOrdere d By: Pieter Morgan on 08-02-2024 Hemoglobin (Bld) [Mass/Vol] 13.8 g/dL 12.0-15.0 [facility] Immature granulocytes/100 WB C Auto (Bld)Ordered By: Pieter Morgan on 08-02-2024 Immature granulocytes/100 WBC (Bld) 0.300 % 0.0-0.9 [facility] Comment on above: IG% - Immature Granu locytes (promyelocytes, myelocytes and metamyelocytes) > 1% indicates that a LEFT SHIFT is Present. Influenza virus A and B and SARS-CoV-2 (COVID-19) and Respiratory syncytial virus RNAOrdered By: Pieter Morgan on 08-02-2024 SARS-CoV-2 (COVID-19) RNA CHUCKY+probe Ql (Unsp spec) [facility] International normalized rat io (INR) calculationOrdered By: Pieter Morgan on 08-02-2024 INR Coag (Bld) [Relative time] 1.1 {INR} [facility] L499.0042on 08-02-2024 Trop T High Sen Normal <=14 [facility] Comment on above: Result Comment: Canc elled via OM: Order cancelled - Patient discharged Performed By: #### L 499.0042 #### [facility] [address] [place], [address] L499.0043on 08-02-2024 Trop T High Sen Normal <=14 [facility] Comment on above: Result Comment: Canc elled via OM: Order cancelled - Patient discharged Performed By: #### L 499.0043 #### [facility] [address] [place], [address] L501.4021on 08-02-2024 Trop T High Sen 38 ng/L High <=14 [facility] Comment on above: Performed By: #### L 300.4310, L501.4021, L300.3900, L500.2500, L100.0100 ####[facility] [address] [place], [address] LIPID PANEL WITH REFLEX TO M ANAMARIA LDLon 08-02-2024 Cholesterol [Mass/Vol] 141 mg/dL NINF - 200 mg/dL [facility] Cholesterol in HDL [Mass/Vol] 38 mg/dL Low 40 - PINF mg/dL [facility] Cholesterol in LDL [Mass/Vol] 84 mg/dL 0 - 99 mg/dL [facility] Cholesterol non HDL [Mass/Vol] 103 mg/dL NINF - 130 mg/dL [facility] Cholesterol.total/Alta sterol in HDL [Mass ratio] 3.7 {ratio} NINF - 4.5 [facility] Triglyceride [Mass/Vol] 96 mg/dL NINF - 150 mg/dL [facility] Calculated LDL Cholesterol 84 mg/dL Normal 0-99 [facility] Comment on above: Result Comment: [<10 0 mg/dL: Optimal] [100-129 mg/dL: Near Optimal] [130-159 mg/dL: Borderline High] [160-189 mg/dL: High] [>189 mg/dL: Very High] Performed By: #### H [facility] #### [facility] (DEFAULT) [address] [address] Cholesterol [Mass/Vol] 141 mg/dL Normal <200 [facility] Comment on above: Result Comment: [<20 0 mg/dL: Desirable] [200-239 mg/dL: Borderline High] [>239 mg/dL: High] Performed By: #### H [facility] #### [facility] (DEFAULT) [address] [place] [address] Cholesterol in HDL [Mass/Vol] 38 mg/dL Low >=40 [facility] Comment on above: Result Comment: [<40 mg/dL: Low (High Risk)] [>59 mg/dL: High (Low Risk)] Performed By: #### H EMO #### [facility] (DEFAULT) [address] [place] [address] Non HDL Cholesterol 103 mg/dL Normal <130 [facility] Comment on above: Performed By: #### H EMO #### [facility] (DEFAULT) [address] [address] Total Cholesterol/HDL Ratio 3.7 Normal <4.5 [facility] Comment on above: Performed By: #### H EMO #### [facility] (DEFAULT) [address] [place] [address] Triglyceride [Mass/Vol] 96 mg/dL Normal <150 [facility] Comment on above: Result Comment: [<15 0 mg/dL: Desirable] [150-199 mg/dL: Borderline] [200-499 mg/dL: High] [>500 mg/dL: Very High] Performed By: #### H EMO #### [facility] (DEFAULT) [address] [address] Lymphocytes Auto (Unsp spec) [#/Vol]Ordered By: Pieter Morgan on 08-02-2024 Lymphocytes (Bld) [#/Vol] 1.56 10*3/uL 0.83-4.51 [facility] Lymphocytes/100 WBC Auto (Un sp spec)Ordered By: Pieter Morgan on 08-02-2024 Lymphocytes/100 WBC (Bld) 17.9 % Low 19-41 [facility] M100.678on 08-02-2024 M100.678 Pending SARS-CoV-2 (COVID 19) Negative INFLUENZA A Negative INFLUENZA B Negative RSV PCR Negative Normal [facility] Comment on above: Performed By: #### M 100.678 ####[facility] [address] [place], [address] MAGNESIUMon 08-02-2024 Magnesium [Mass/Vol] 1.2 mg/dL Low 1.6 - 2 .6 mg/dL [facility] Magnesium [Mass/Vol] 1.2 mg/dL Low 1.6-2.6 [facility] Comment on above: Performed By: #### H EMO #### [facility] (DEFAULT) [address] [place] [address] MCV (mean corpuscular volume ) determinationOrdered By: Pieter Morgan on 08-02-2024 MCV (RBC) [Entitic vol] 92.1 fL 81-99 [facility] Mean corpuscular hemoglobin (MCH) determinationOrdered By: Pieter Morgan on 08-02-2024 MCH (RBC) [Entitic mass] 30.3 pg 27.0-32.0 [facility] Mean corpuscular hemoglobin concentration (MCHC) determinationOrdered By: Pieter Morgan on 08-02-2024 MCHC (RBC) [Mass/Vol] 32.9 g/dL 32-36 [facility] Mean platelet volume determi nationOrdered By: Pieter Morgan on 08-02-2024 Platelet mean volume (Bld) [Entitic vol] 10.7 fL 6.2-12.0 [facility] Monocyte percentageOrdered B y: Pieter Morgan on 08-02-2024 Monocytes/100 WBC (Bld) 8.9 % 0-10 [facility] NT-PRO B-TYPE NATRIURETIC PE PTIDEon 08-02-2024 Natriuretic peptide B (Bld) [Mass/Vol] 1115 pg/mL High <=540 [facility] Comment on above: Performed By: #### H [facility] #### [facility] (DEFAULT) [address] [place] [address] Neutrophil percentageOrdered By: Pieter Morgan on 08-02-2024 Neutrophils/100 WBC (Bld) 71.4 % High 47-70 [facility] No Panel Informationon 08-02 Radiology Study observation (narrative) [facility] Interpretation and review of laboratory results Abnormal [facility] No Panel InformationOrdered By: Pieter Morgan on 08-02-2024 Troponin T High Sensitivity 38 ng/L High <14 [facility] Nucleated red blood cell per centageOrdered By: Pieter Morgan on 08-02-2024 Nucleated RBC/100 WBC (Bld) [Ratio] 0 % 0-5 [facility] PT,INR,PTTon 03-21-2025 aPTT Coag (PPP) [Time] 26.[address] [facility] INR Coag (Bld) [Relative time] 1.1 {INR} 0.9 - 1.1 [facility] Interpretation and review of laboratory results Normal [facility] PT Coag (PPP) [Time] 13.9 s [facility] aPTT Coag (Bld) [Time] 26.9 s Normal 24.0-34.3 [facility] Comment on above: Performed By: #### P TPTT ####[facility] (DEFAULT)[address] [place] [address] INR Coag (PPP) [Relative time] 1.1 {INR} Normal 0.9-1.1 [facility] Comment on above: Performed By: #### P TPTT ####[facility] (DEFAULT)[address] [place] [address] PT Coag (PPP) [Time] 13.9 s Normal 11.9-14.2 [facility] Comment on above: Performed By: #### P TPTT ####[facility] (DEFAULT)[address] [place] [address] Partial Thromboplast Timeon 08-02-2024 aPTT Coag (Bld) [Time] 28.4 s Normal 24.1-36.2 [facility] Comment on above: Performed By: #### L 300.4310, L501.4021, L300.3900, L500.2500, L100.0100 #### [facility] [address] [place], [address] Platelet countOrdered By: Racheal Morgan on 08-02-2024 Platelets (Bld) [#/Vol] 214 10*3/uL 150-450 [facility] Potassium (Unsp spec) [Mass/ Vol]Ordered By: Pieter Morgan on 08-02-2024 Potassium [Moles/Vol] 4.2 mmol/L 3.3-5.1 [facility] Potassium measurement (mass/ volume)Ordered By: Pieter Morgan on 08-02-2024 Potassium (Unsp spec) [Mass/Vol] 4.2 mmol/L 3.3-5.1 [facility] Prothrombin Time w/INRon INR Coag (PPP) [Relative time] 1.1 {INR} Normal [facility] Comment on above: Performed By: #### L 300.4310, L501.4021, L300.3900, L500.2500, L100.0100 #### [facility] [address] [place], [address] PT Coag (PPP) [Time] 14.1 s Normal 11.7-14.9 [facility] Comment on above: Performed By: #### L 300.4310, L501.4021, L300.3900, L500.2500, L100.0100 #### [facility] [address] [place], [address] Prothrombin timeOrdered By: Pieter Morgan on 08-02-2024 PT Coag (PPP) [Time] 14.1 s 11.7-14.9 [facility] RBC Auto (Bld) [#/Vol]Ordere d By: Pieter Morgan on 08-02-2024 RBC (Bld) [#/Vol] 4.56 10*6/uL 4.2-5.4 [facility] SCREEN: MRSA/MSSAon 08-03-19 25 Methicillin Resistant S. Aureus By Pcr Negative Normal Negative [facility] Comment on above: Order Comment: Colle [...] by the Clinical Microbiology Laboratory at [facility]. It has not been cleared or approved by the FDA.The laboratory is regulated under CLIA as qualified to perform high-complexity testing. This test is used for clinical purposes. It should not be regarded as investigational or for research. Performed By: #### T YPEC #### [facility] (DEFAULT) [address] [place] [address] Staphylococcus Aureus By Pcr Negative Normal Negative [facility] Comment on above: Order Comment: Colle [...] by the Clinical Microbiology Laboratory at [facility]. It has not been cleared or approved by the FDA.The laboratory is regulated under CLIA as qualified to perform high-complexity testing. This test is used for clinical purposes. It should not be regarded as investigational or for research. Performed By: #### T YPEC #### [facility] (DEFAULT) [address] [place] [address] STROKE Brain/Head without Co nton 08-02-2024 STROKE Brain/Head without Cont [facility] Imaging Services [address] [place] [address] [id number] STROKE Brain/Head without Cont MR#: [id number] Acct: [id number] Name: LINDSAY ACUNA Rep #: [id number] : 1945 F 78 From: Kameron Cardoso MD PCP: Dr. Kameron Caruso MD Status: REG ER Study: STROKE Brain/Head without Cont Date of Exam: 0 08/02/24 Exam# [id number] Ordering Dr: Pieter Morgan MD EXAM: CT [...] on 08/02/2024 at 1250 hours. Reading Location: [facility] CC: Dr. Pieter Morgan MD; Dr. Kameron Caruso MD Marshmallow Runner: Signed Normal [facility] STROKE CTA Head AND Neck W/C onon 08-02-2024 STROKE CTA Head AND Neck W/Con [facility] Imaging Services [address] [place] [address] [id number] STROKE CTA Head AND Neck W/Con MR#: [id number] Acct: [id number] Name: LINDSAY ACUNA Rep #: [id number] : 1945 F 78 From: August ibrahim MD PCP: Dr. Kameron Caruso MD Status: REG ER Study: STROKE CTA Head AND Neck W/Con Date of Exam: 0 08/02/24 Exam# [id number] Ordering Dr: Pieter Morgan MD PROCEDURE: STROKE [...] impression: No significant stenosis seen. Reading Location: [place] [address] CC: Dr. Pieter Morgan MD; Dr. Kameron Caruso MD Marshmallow Runner: Signed Normal [facility] Serum creatinine measurement (mass/volume)Ordered By: Pieter Morgan on 08-02-2024 Creatinine [Mass/Vol] 1.74 mg/dL High 0.70-1.20 [facility] Serum glucose measurement (m ass/volume)Ordered By: Pieter Morgan on 08-02-2024 Glucose [Mass/Vol] 235 mg/dL High 70-99 [facility] Serum or plasma calcium dayna urement (mass/volume)Ordered By: Pieter Morgan on 08-02-2024 Calcium [Mass/Vol] 9.0 mg/dL 7.6-11.0 [facility] Serum or plasma urea nitroge n measurement (mass/volume)Ordered By: Pieter Morgan on 08-02-2024 Urea nitrogen [Mass/Vol] 20 mg/dL High 4-19 [facility] Sodium levelOrdered By: Evert danielle Cathy on 08-02-2024 Sodium [Moles/Vol] 132 mmol/L Low 133-145 [facility] TSH W/FT4 REFLEXon Interpretation and review of laboratory results Normal [facility] TSH Qn 1.662 m[IU]/[facility] TSH 1.662 uIU/mL Normal 0.550-4.780 [facility] Comment on above: Performed By: #### X M #### [facility] (DEFAULT) [address] [place] [address] TYPE AND SCREENon 08-02-2024 ABO/RH(D) TYPE Negative [facility] Specimen Expiration 08/05/2024 23:59 [facility] ABO/RH(D) TYPE Negative Normal [facility] Comment on above: Performed By: #### X M #### [facility] (DEFAULT) [address] [place] [address] Specimen Expiration 08/05/2024 23:59 Normal [facility] Comment on above: Performed By: #### X M #### [facility] (DEFAULT) [address] [place] [address] URINALYSIS REFLEX TO CULTURE PERFORMABLEOrdered By: Namita De La Cruz on 08-02-2024 Appearance (U) Clear Clear [facility] Bacteria LM Ql (Urine sed) PRESENT Abnormal ABSENT [facility] Color (U) Yellow Yellow [facility] Epithelial cells.squamous LM Ql (Urine sed) 0-2/hpf 0-2/hpf, 3-5/hpf = 1+ [facility] Glucose Test strip (U) [Mass/Vol] 500 mg/dL Abnormal Negative [facility] Interpretation and review of laboratory results [facility] Ketones (U) [Mass/Vol] Negative Negative [facility] Leukocyte esterase Test strip Ql (U) Moderate Abnormal Negative [facility] Nitrite Ql (U) Negative Negative [facility] pH (U) 6.5 [pH] 5.0 - 7.0 [facility] Protein (U) [Mass/Vol] Negative Negative [facility] RBC (U) [#/Vol] Small Abnormal Negative [facility] RBC LM.HPF (Urine sed) [#/Area] 3-5 Abnormal [facility] Specific gravity (U) [Rel density] 1.022 1.001 - 1.035 [facility] Urobilinogen (U) [Mass/Vol] 0.2 E.U./dL 0.2 E.U/dL, 1.0 E.U/dL [facility] WBC LM.HPF (Urine sed) [#/Area] /[HPF] Abnormal [facility] URINALYSIS REFLEX TO CULTURE PERFORMABLEon 08-02-2024 Appearance (U) Clear Normal Clear [facility] Comment on above: Order Comment: For i ndwelling catheters, specimen collection is acceptable on catheter day 1 and 2 only. ? Performed By: #### U [id number] #### [facility] (DEFAULT) [address] [place] [address] Bacteria PRESENT Abnormal ABSENT [facility] Comment on above: Order Comment: For i ndwelling catheters, specimen collection is acceptable on catheter day 1 and 2 only. ? Performed By: #### U [id number] #### [facility] (DEFAULT) [address] [place] [address] Blood Urine Small Abnormal Negative [facility] Comment on above: Order Comment: For i ndwelling catheters, specimen collection is acceptable on catheter day 1 and 2 only. ? Performed By: #### U [id number] #### [facility] (DEFAULT) [address] [place] [address] Color (U) Yellow Normal Yellow [facility] Comment on above: Order Comment: For i ndwelling catheters, specimen collection is acceptable on catheter day 1 and 2 only. ? Performed By: #### U [id number] #### [facility] (DEFAULT) [address] [place] [address] Glucose Ql (U) 500 mg/dL Abnormal Negative [facility] Comment on above: Order Comment: For i ndwelling catheters, specimen collection is acceptable on catheter day 1 and 2 only. ? Performed By: #### U [id number] #### [facility] (DEFAULT) [address] [place] [address] Ketones Ql (U) Negative Normal Negative [facility] Comment on above: Order Comment: For i ndwelling catheters, specimen collection is acceptable on catheter day 1 and 2 only. ? Performed By: #### U [id number] #### [facility] (DEFAULT) [address] [place] [address] Leukocyte esterase Test strip Ql (U) Moderate Abnormal Negative [facility] Comment on above: Order Comment: For i ndwelling catheters, specimen collection is acceptable on catheter day 1 and 2 only. ? Performed By: #### U [id number] #### [facility] [facility] (DEFAULT) [address] [place] [address] 60583 Nitrites Urine Negative Normal Negative [facility] Comment on above: Order Comment: For i ndwelling catheters, specimen collection is acceptable on catheter day 1 and 2 only. ? Performed By: #### U [id number] #### [facility] (DEFAULT) [address] [place] [address]458 pH (U) 6.5 [pH] Normal 5.0-7.0 [facility] Comment on above: Order Comment: For i ndwelling catheters, specimen collection is acceptable on catheter day 1 and 2 only. ? Performed By: #### U [id number] #### [facility] (DEFAULT) [address] [place] [address] 75029 Protein Urine Negative Normal Negative [facility] Comment on above: Order Comment: For i ndwelling catheters, specimen collection is acceptable on catheter day 1 and 2 only. ? Performed By: #### U [id number] #### [facility] (DEFAULT) [address] [place] [address] 00791 RBC Urine 3-5 Abnormal 0-2 [facility] Comment on above: Order Comment: For i ndwelling catheters, specimen collection is acceptable on catheter day 1 and 2 only. ? Performed By: #### U [id number] #### [facility] (DEFAULT) [address] [place] [address] 26765 Specific Sledge Urine 1.022 Normal 1.001-1.035 O [facility] Comment on above: Order Comment: For i ndwelling catheters, specimen collection is acceptable on catheter day 1 and 2 only. ? Performed By: #### U [id number] #### [facility] (DEFAULT) [address] [place] [address] 07297 Squamous/Epithelial Cells, Urine 0-2/hpf Normal 0-2/hpf, 3-5/hpf = 1+ [facility] Comment on above: Order Comment: For i ndwelling catheters, specimen collection is acceptable on catheter day 1 and 2 only. ? Performed By: #### U [id number] #### [facility] (DEFAULT) [address] [place] [address] 10261 Urobilinogen Urine 0.2 E.U./dL Normal 0.2 E.U/d L, 1.0 E.U/dL [facility] Comment on above: Order Comment: For i ndwelling catheters, specimen collection is acceptable on catheter day 1 and 2 only. ? Performed By: #### U [id number] #### [facility] (DEFAULT) [address] [place] [address] 68904 WBC LM.HPF (Urine sed) [#/Area] /[HPF] Abnormal 0 - 5 [facility] Comment on above: Order Comment: For i ndwelling catheters, specimen collection is acceptable on catheter day 1 and 2 only. ? Performed By: #### U [id number] #### [facility] (DEFAULT) [address] [place] [address] 61802 VON WILLEBRAND FACTOR AGon 0 - Von Willebrand Factor Antigen 230 % High 50-180 [facility] Comment on above: Performed By: #### H [facility] #### [facility] (DEFAULT) [address] [place] [address] White blood cell (WBC) count Ordered By: Pieter Morgan on 08-02-2024 WBC (Bld) [#/Vol] 8.7 10*3/uL 4.4-11.0 [facility] XR Elbow - right 2 Viewson 0 08-02-2024 Radiology Study observation (narrative) [facility] XR Humerus - right Viewson 0 08-02-2024 Radiology Study observation (narrative) [facility] XR Wrist - right 3 Viewson 0 08-02-2024 Radiology Study observation (narrative) [facility] aPTT Coag (PPP) [Time]Ordere d By: Pieter Morgan on 08-02-2024 aPTT Coag (Bld) [Time] 28.4 s 24.1-36.2 [facility] CNPNon 07-03-2024 [employer] Telephone (FAMPWS) ARMANDLINDSAY Veronica ([id number]) 1945 F Date Time Provider Department 07/03/24 KAMERON CARUSOWS During your visit today, we [...] calling: self Call patient at: on cell [phone] (home) [phone] (cell) Was an appointment scheduled: No Closing statement: Results or non-symptom based questions: Thank you for calling [facility], your call will be returned within the [...] Status:Closed by MJ GLOVER on 07/03/24 [facility] [place] 07-02-2024 [facility] LINDSAY ACUNA ([id number]) 1945 F Date Time Provider Department 07/02/24 KAMERON CARUSO [facility] During your visit today, we recorded the following information about you: Katia Grullon RN 07/02/2024 11:57 AM Signed Patient calls and is requesting Cardiology referral to be faxed to [facility]. Faxed referral as [...] Encounter Status:Closed by KATIA GRULLON on 07/02/24 [facility] [place] 06-28-2024 GARRETTN Telephone (FAMPTW) LINDSAY ACUNA ([id number]) 1945 F Date Time Provider Department 06/28/24 KAMERON CARUSO During your visit today, we recorded the following information about you: Corneliusdesmond Goldie Swanson 06/28/2024 2:42 PM Addendum October is calling [...] calling: self Call patient at: on cell [phone] (home) [phone] (cell) Was an appointment scheduled: No Adenike Carey MA 06/28/2024 3:08 PM Signed Please review pt message and advise. TATIANA Simpson Jesse, APRN.COLOR CONTROL SUPERVISOR 07/01/2024 11:23 AM Signed Please let the [...] Encounter Status:Closed by BRET ARAMBULA on 07/01/24 [facility] CNOVon 06-26-2024 CNOV [facility] LINDSAY ACUNA ([id number]) 1945 F Date Time Provider Department 06/26/24 9:40 AM EMMA SOTOMAYOR FAMPWS During your visit today, we recorded the following information about you: Pulse Respiration Blood pressure Weight 93/minute 16/minute 144/88 78.9 kg Emma Sotomayor APRN.COLOR CONTROL SUPERVISOR 06/26/2024 12:37 PM Signed This is a [...] swelling RESP (more content not included)... [facility] 06-24-2024 RANDEE Telephone ([facility] LINDSAY ACUNA ([id number]) 1945 F Date Time Provider Department 06/24/24 [...] Encounter Status:Closed by KAMERON CARUSO on 06/24/24 [facility] 06-11-2024 [facility]FAMPWS[facility] LINDSAY ACUNA ([id number]) 1945 F Date Time Provider Department 06/11/24 [facility] CARUSO [facility] During your visit today, we recorded the [...] Status:Closed by NAIMA MARSHALL on 06/11/24 [facility] ECHOon 06-11-2024 Echocardiography Echocardiography Report: Transthoracic Echo [facility] Date of service: 06/11/2024 8:52:28 AM CARETAKER Ordering physician: KAMERON CARUSO Indication: Atrial fibrillation Technologist: Katia Du [facility] Interpreting physician: David Herndon MD PATIENT: [...] * * Final * * * CC [employer] [facility] : [id number] [id number] [facility] CNPN Telephone (FAMPWS) LINDSAY ACUNA ([id number]) 1945 F Date Time Provider Department 06/10/24 KAMERON CARUSO [facility] During your visit today, we [...] Encounter Statu (more content not included)... [facility] CNOVon 05-31-2024 CNOV Office Visit (FAMPWS ) LINDSAY ACUNA ([id number]) 1945 F Date Time Provider Department 05/31/24 9:00 AM KAMERON CARUSO [facility] During your visit today, we recorded the following information about you: Pulse Respiration Blood pressure Weight 100/minute 18/minute 136/84 79 kg Kameron Caruso MD 05/31/2024 12:00 PM Signed Chief Complaint Patient presents with: F/U 6 Month HPI Lindsay Acuna is a 78 year old female who presents here today for 6 month follow up. Here today for a 6 mo f/u. Going to [place] in June and [facility] [...] and Amaryl 2 mg daily. Follows with [facility]. Thyroid: Taking Synthroid 75 mcg [...] past year, follows with Dr. Park at [facility]. Past medical history, appointments, medications, [...] Social Hi (more content not included)... [facility] [id number] 05-31-2024 ECG01 Ventricular Rate : 1 34 BPM QRS Duration : 82 ms Q-T Interval : 324 ms QTC Calculation(Bazett) : 483 ms Calculated R Kendall : 68 degrees Calculated T Kendall : 237 degrees ATRIAL FIBRILLATION WITH RAPID VENTRICULAR RESPONSE ST & INFEROLATERAL T WAVE ABNORMALITY ABNORMAL ECG Confirmed by MD OBRIEN GREGORY () on 06/03/2024 8:39:22 AM NAME : LINDSAY ACUNA PID : [id number] : 1945 Gender : Female Race : [...] Acquired by : Adenike Walton MA, Normal [facility] ALBUMIN/CREATININE RATIO, UR INEon 05-23-2024 Albumin DL <= 20 mg/L (U) [Mass/Vol] 16.3 mg/L [facility] Comment on above: Order Comment: Speci men Type: URINE SPECIMENOrdering Facility: [facility] Address: [address] [place] [address] Performed By: #### U ACR ####[facility] LABCLIA [id number] [place] [address] [place] Albumin/Creatinine (U) [Mass ratio] 16 mg/g Normal <30 [facility] Comment on above: Order Comment: Speci men Type: URINE SPECIMENOrdering Facility: [facility] Address: [address] [place] [address] Result Comment: Adul t Male and Female Nephrotic Criteria: <30 mg/g is considered normal to mildly increased 30-300 mg/g is considered moderately increased >300 mg/g is considered severely increased KDIGO. (2013). KDIGO 2012 Clinical Practice Guideline for the Evaluation and Management of Chronic Kidney Disease. Official Journal of the International Society of Nephrology, 3(1), 1-150. Performed By: #### U ACR ####[facility] LABCLIA [id number] [place] [address] [place] Creatinine (U) [Mass/Vol] 102.1 mg/dL Normal 20.0-300.0 [facility] Comment on above: Order Comment: Speci men Type: URINE SPECIMENOrdering Facility: [facility] Address: [address] [place] [address] Performed By: #### U ACR ####[facility] LABCLIA [id number] [place] [id number] [place] Comprehensive metabolic 2000 panelon 05-23-2024 Albumin [Mass/Vol] 4.2 g/dL Normal 3.9-4.9 [facility] Comment on above: Order Comment: Speci men Type: BLOOD SPECIMENOrdering Facility: [facility] Address: [address] [place] [address] Performed By: #### 2 4331-1, 67006-3, 3015-3 ####[facility] LABCLIA [id number] [facility] [address] [address] [place] ALP [Catalytic activity/Vol] 146 U/L High 34-123 [facility] Comment on above: Order Comment: Speci men Type: BLOOD SPECIMENOrdering Facility: [facility] Address: [address] [place] [address] Performed By: #### 2 4331-1, 36888-2, 3015-3 ####[facility] LABCLIA [id number] [facility] [place] [id number] [place] ALT [Catalytic activity/Vol] 17 U/L Normal 7-38 [facility] Comment on above: Order Comment: Speci men Type: BLOOD SPECIMENOrdering Facility: [facility] Address: [address] [place] [address] Performed By: #### 2 4331-1, , 3 ####[facility] LABCLIA [id number] [facility] [place] [id number] [place] Anion gap [Moles/Vol] 9 mmol/L Normal 8-15 [facility] Comment on above: Order Comment: Speci men Type: BLOOD SPECIMENOrdering Facility: [facility] Address: [address] [place] [address] Performed By: #### 2 4331-1, , 3 ####[facility] LABCLIA [id number] [facility] [place] [id number] [place] AST [Catalytic activity/Vol] 16 U/L Normal 13-35 [facility] Comment on above: Order Comment: Speci men Type: BLOOD SPECIMENOrdering Facility: [facility] Address: [address] [place], [place] [address] Performed By: #### 2 4331-1, 24183-8, 3015-3 ####[facility] LABCLIA [id number] [address] [address] [place] Bilirubin [Mass/Vol] 0.4 mg/dL Normal 0.2-1.3 [facility] Comment on above: Order Comment: Speci men Type: BLOOD SPECIMENOrdering Facility: [facility] Address: [address] [place] [address] Performed By: #### 2 4331-1, 28933-4, 3015-3 ####[facility] LABCLIA [id number] [place] [id number] [place] Calcium [Mass/Vol] 9.6 mg/dL Normal 8.5-10.2 [facility] Comment on above: Order Comment: Speci men Type: BLOOD SPECIMENOrdering Facility: [facility] Address: [address] [place] [address] Performed By: #### 2 4331-1, , 3015-3 ####[facility] LABCLIA [id number] [place] [address] [place] Chloride [Moles/Vol] 104 mmol/L Normal 98-107 [facility] Comment on above: Order Comment: Speci men Type: BLOOD SPECIMENOrdering Facility: [facility] Address: [address] [place], [place] [address] Performed By: #### 2 4331-1, , 3 ####[facility] LABCLIA [id number] [place] [id number] [place] CO2 [Moles/Vol] 28 mmol/L Normal 22-30 [facility] Comment on above: Order Comment: Speci men Type: BLOOD SPECIMENOrdering Facility: [facility] Address: [address] [place] [address] Performed By: #### 2 4331-1, 57151-6, 3015-3 ####[facility] LABCLIA [id number] [address] [address] [place] Creatinine [Mass/Vol] 1.31 mg/dL High 0.58-0.96 [facility] Comment on above: Order Comment: Deana borjas Type: BLOOD SPECIMENOrdering Facility: [facility] Address: [address] [place] [address] Performed By: #### 2 4331-1, 10208-8, 3015-3 ####[facility] LABCLIA [id number] [address] STATES OF [facility] Creatinine and Glomerular filtration rate.predicted panel (S/P/Bld) 42 mL/min/1.73m??? Low >=60 [facility] Comment on above: Order Comment: Deana borjas Type: BLOOD SPECIMENOrdering Facility: [facility] Address: [address] [place] [address] Result Comment: Nancy mated Glomerular Filtration Rate [...] actual GFR. Performed By: #### 2 4331-1, 75348-6, 3 ####[facility] LABIA [id number] [place] [address] [place] Glucose [Mass/Vol] 105 mg/dL High 74-99 [facility] Comment on above: Order Comment: Deana borjas Type: BLOOD SPECIMENOrdering Facility: [facility] Address: [address] [place] [address] Result Comment: The [place] Diabetes Association (ADA) provides guidance for cutoff [...] Standards of Medical Care in Diabetes 2016, [place] Diabetes Association. Diabetes Care. 2016.39(Suppl 1). Performed By: #### 2 4331-1, 62271-7, 3 ####[facility] LABCLIA [id number] [address] [address] [place] Potassium [Moles/Vol] 4.7 mmol/L Normal 3.7-5.1 [facility] Comment on above: Order Comment: Speci men Type: BLOOD SPECIMENOrdering Facility: [facility] Address: [address] [place] [address] Performed By: #### 2 4331-1, , 3 ####[facility] LABCLIA [id number] [place] [id number] [place] Protein [Mass/Vol] 7.1 g/dL Normal 6.3-8.0 [facility] Comment on above: Order Comment: Speci men Type: BLOOD SPECIMENOrdering Facility: [facility] Address: [address] [place] [address] Performed By: #### 2 4331-1, , 3 ####[facility] LABCLIA [id number] [address] [address] [place] Sodium [Moles/Vol] 141 mmol/L Normal 136-144 [facility] Comment on above: Order Comment: Speci men Type: BLOOD SPECIMENOrdering Facility: [facility] Address: [address] [place] [address] Performed By: #### 2 4331-1, , 3 ####[facility] LABCLIA [id number] [address] [address] [place] Urea nitrogen [Mass/Vol] 18 mg/dL Normal 7-21 [facility] Comment on above: Order Comment: Deana borjas Type: BLOOD SPECIMENOrdering Facility: [facility] Address: [address] [place] [address] Performed By: #### 2 4331-1, 06043-6, 3016-3 ####[facility] LABCLIA [id number] [address] [place] HbA1c (Bld)on 05-23-2024 Average glucose Estimated from glycated hemoglobin (Bld) [Mass/Vol] 154 mg/dL Normal [facility] Comment on above: Order Comment: Deana borjas Type: BLOOD SPECIMENOrdering Facility: [facility] Address: [address] [place] [address] Result Comment: eAG: (Estimated average glucose) is a calculated value from HgbA1c and is players club representative of the average blood glucose level in the last 2-3 month period. Performed By: #### 5 5454-3 ####[facility] LABCLIA [id number] [address] [place] HbA1c (Bld) [Mass fraction] 7.0 % High 4.3-5.6 [facility] Comment on above: Order Comment: Deana borjas Type: BLOOD SPECIMENOrdering Facility: [facility] Address: [address] [place] [address] Result Comment: Amer ican Diabetes Association guidelines indicate that patients with HgbA1c in the range 5.7-6.4% are at increased risk for development of diabetes, and intervention by lifestyle modification may be beneficial. HgbA1c greater or equal to 6.5% is considered diagnostic of diabetes. Performed By: #### 5 5454-3 ####[facility] LABIA [id number] [place] [address] [place] Lipid 1996 panelon Cholesterol [Mass/Vol] 193 mg/dL Normal <200 Cl [facility] Comment on above: Order Comment: Deana borjas Type: BLOOD SPECIMENOrdering Facility: [facility] Address: [address], [place] [address] Result Comment: <200 mg/dL, Desirable 200-239 mg/dL, Borderline high >239 mg/dL, High Performed By: #### 2 4331-1, 16312-7, 3015-3 ####[facility] LABCLIA [id number] [address] [address] [place] Cholesterol in HDL [Mass/Vol] 44 mg/dL Normal >39 [facility] Comment on above: Order Comment: Speci men Type: BLOOD SPECIMENOrdering Facility: [facility] Address: [address] [place] [address] Result Comment: 40-5 9 mg/dL, Acceptable >59 mg/dL, High: Negative risk factor for coronary heart disease <40 mg/dL, Low: Positive risk factor for coronary heart disease Performed By: #### 2 4331-1, , 3 ####[facility] LABCLIA [id number] [address] [address] [place] Cholesterol in LDL [Mass/Vol] 123 mg/dL High <100 [facility] Comment on above: Order Comment: Speci men Type: BLOOD SPECIMENOrdering Facility: [facility] Address: [address] [place] [address] Result Comment: <100 mg/dL, Optimal 100-129 mg/dL, Near optimal/above optimal 130-159 mg/dL, Borderline high 160-189 mg/dL, High >189 mg/dL, Very high Secondary prevention optimal LDL Cholesterol levels are recommended to be < 70 mg/dL Performed By: #### 2 4331-1, 77049-4, 3015-3 ####[facility] LABCLIA [id number] [address] [address] [place] Cholesterol in LDL/Cholesterol in HDL [Mass ratio] 2.80 {ratio} High <2.54 [facility] Comment on above: Order Comment: Speci men Type: BLOOD SPECIMENOrdering Facility: [facility] Address: [address] [place] [address] Result Comment: Refe rence: 1. National Cholesterol Education Program ATP III Guideline At-A-Glance Quick Desk Reference: National Heart, Lung, and Blood [place]. National Institutes of Health. 2001: NIH Publication No. 01-3305. 2. An International Atherosclerosis Society position paper: global recommendations for the management of dyslipidemia: executive summary, Atherosclerosis. 2014: 232(2):410-413. Performed By: #### 2 4331-1, 80023-7, 6-3 ####[facility] LABCLIA [id number] [place] [address] [place] Cholesterol in VLDL [Mass/Vol] 26 mg/dL Normal <30 [facility] Comment on above: Order Comment: Speci men Type: BLOOD SPECIMENOrdering Facility: [facility] Address: [address] [place] [address] Performed By: #### 2 4331-1, 52085-2, 6-3 ####[facility] LABCLIA [id number] [place] [address] [place] Cholesterol non HDL [Mass/Vol] 149 mg/dL High <130 [facility] Comment on above: Order Comment: Deana borjas Type: BLOOD SPECIMENOrdering Facility: [facility] Address: [address] [place] [address] Result Comment: <130 mg/dL, Optimal 130-159 mg/dL, Near optimal/above optimal 160-189 mg/dL, Borderline high 190-219 mg/dL, High >219 mg/dL, Very high Secondary prevention optimal non HDL Cholesterol levels are recommended to be <100 mg/dL Performed By: #### 2 4331-1, 87207-3, 6-3 ####[facility] LABCLIA [id number] [place] [id number] [place] Cholesterol.total/Alta sterol in HDL [Mass ratio] 4.39 {ratio} Normal <5.10 [facility] Comment on above: Order Comment: Nici suad Type: BLOOD SPECIMENOrdering Facility: [facility] Address: [address] [place] [address] Performed By: #### 2 4331-1, 97063-6, 6-3 ####[facility] LABCLIA [id number] [place] [address] [place] FASTING TIME 12 hrs Normal [facility] Comment on above: Order Comment: Speci men Type: BLOOD SPECIMENOrdering Facility: [facility] Address: [address] [place] [address] Performed By: #### 2 4331-1, 79249-2, 3015-3 ####[facility] LABIA [id number] [address] [place] Triglyceride [Mass/Vol] 129 mg/dL Normal <150 C [facility] Comment on above: Order Comment: Speci men Type: BLOOD SPECIMENOrdering Facility: [facility] Address: [address] [place] [address] Result Comment: <150 mg/dL, Normal 150-199 mg/dL, Borderline high 200-499 mg/dL, High >499 mg/dL, Very high Performed By: #### 2 4331-1, 77836-5, 3015-3 ####[facility] LABIA [id number] [place] [address] [place] TSH SerPl-aCncon 05-23-2024 TSH Qn 0.183 m[IU]/L Low 0.270-4.200 [facility] Comment on above: Order Comment: Speci men Type: BLOOD SPECIMENOrdering Facility: [facility] Address: [address] [place] [address] Performed By: #### 2 4331-1, 60030-4, 6-3 ####[facility] LABIA [id number] [place] [address] [place] CNOVon 11-28-2023 CNOV Office Visit (FAMPWS ) LINDSAY ACUNA ([id number]) 1945 F Date Time Provider Department 11/28/23 [...] follow up. Is planning on going to [place] in June. No bowel, gi, or urinary concerns. Does have some urinary leakage. Hx of tubulovillous adenoma; due for colonoscopy; will contact GI in [place] Lipid: Does not watch diet or exercise. [...] mouth daily before breakfast. blood sugar diagnostic (BrightContextUCH ULTRA TEST) test strip Test Blood Sugar [...] 1 tablet by mouth once daily. lancets (DreamNotesTOUCH DELICA PLUS LANCET) 30 gauge Test blood [...] Smoking stat (more content not included)... Normal [facility] Comprehensive metabolic 2000 panelon 11-27-2023 Albumin [Mass/Vol] 4.1 g/dL Normal 3.9-4.9 [facility] Comment on above: Order Comment: Speci men Type: BLOOD SPECIMENOrdering Facility: [facility] Address: [address] [place] [address] Performed By: #### 3 016-3, 96294-1, 39395-5 ####[facility] LABCLIA [id number] [place] [address] [place] ALP [Catalytic activity/Vol] 86 U/L Normal 34-123 [facility] Comment on above: Order Comment: Speci men Type: BLOOD SPECIMENOrdering Facility: [facility] Address: [address] [place] [address] Performed By: #### 3 016-3, 76038-2, 25365-3 ####[facility] LABCLIA [id number] [place] [address] [place] ALT [Catalytic activity/Vol] 13 U/L Normal 7-38 [facility] Comment on above: Order Comment: Speci men Type: BLOOD SPECIMENOrdering Facility: [facility] Address: [address] [place] [address] Performed By: #### 3 016-3, 43596-1, 11893-2 ####[facility] LABCLIA [id number] [place] [address] [place] Anion gap [Moles/Vol] 10 mmol/L Normal 8-15 [facility] Comment on above: Order Comment: Speci men Type: BLOOD SPECIMENOrdering Facility: [facility] Address: [address] [place] [address] Performed By: #### 3 016-3, 07318-4, 87325-3 ####[facility] LABCLIA [id number] [place] [address] [place] AST [Catalytic activity/Vol] 21 U/L Normal 13-35 [facility] Comment on above: Order Comment: Speci men Type: BLOOD SPECIMENOrdering Facility: [facility] Address: [address] [place] [address] Performed By: #### 3 016-3, 84263-8, 82350-4 ####[facility] LABCLIA [id number] [place] [address] [place] Bilirubin [Mass/Vol] 0.5 mg/dL Normal 0.2-1.3 [facility] Comment on above: Order Comment: Speci men Type: BLOOD SPECIMENOrdering Facility: [facility] Address: [address] [place] [address] Performed By: #### 3 016-3, 67872-7, 15542-2 ####[facility] LABCLIA [id number] [place] [address] [place] Calcium [Mass/Vol] 9.7 mg/dL Normal 8.5-10.2 [facility] Comment on above: Order Comment: Speci men Type: BLOOD SPECIMENOrdering Facility: [facility] Address: [address] [place] [address] Performed By: #### 3 016-3, 81099-9, 47626-9 ####[facility] LABCLIA [id number] [place] [address] [place] Chloride [Moles/Vol] 108 mmol/L High 98-107 [facility] Comment on above: Order Comment: Speci men Type: BLOOD SPECIMENOrdering Facility: [facility] Address: [address] [place] [address] Performed By: #### 3 016-3, 31469-8, 50109-1 ####[facility] LABCLIA [id number] [place] [address] [place] CO2 [Moles/Vol] 23 mmol/L Normal 22-30 [facility] Comment on above: Order Comment: Speci men Type: BLOOD SPECIMENOrdering Facility: [facility] Address: [address] [place] [address] Performed By: #### 3 016-3, 98890-1, 70224-8 ####[facility] LABCLIA [id number] [place] [address] [place] Creatinine [Mass/Vol] 1.37 mg/dL High 0.58-0.96 [facility] Comment on above: Order Comment: Speci men Type: BLOOD SPECIMENOrdering Facility: [facility] Address: [address] [place] [address] Performed By: #### 3 016-3, 39408-1, 36135-2 ####[facility] LABCLIA [id number] [address] [place] Creatinine and Glomerular filtration rate.predicted panel (S/P/Bld) 39 mL/min/1.73m??? Low >=60 [facility] Comment on above: Order Comment: Speci men Type: BLOOD SPECIMENOrdering Facility: [facility] Address: [address] [place] [address] Result Comment: Nancy mated Glomerular Filtration Rate [...] actual GFR. Performed By: #### 3 016-3, 79039-6, 09737-1 ####[facility] LABCLIA [id number] [place] [address] [place] Glucose [Mass/Vol] 77 mg/dL Normal 74-99 [facility] Comment on above: Order Comment: Speci men Type: BLOOD SPECIMENOrdering Facility: [facility] Address: [address] [place] [address] Result Comment: The [place] Diabetes Association (ADA) provides guidance for cutoff [...] Standards of Medical Care in Diabetes 2016, [place] Diabetes Association. Diabetes Care. 2016.39(Suppl 1). Performed By: #### 3 016-3, 38555-8, 31473-0 ####[facility] LABIA [id number] [place] [address] [place] Potassium [Moles/Vol] 4.4 mmol/L Normal 3.7-5.1 [facility] Comment on above: Order Comment: Speci men Type: BLOOD SPECIMENOrdering Facility: [facility] Address: [address] [place] [address] Performed By: #### 3 016-3, 34376-8, 08752-1 ####[facility] LABIA [id number] [place] [address] [place] Protein [Mass/Vol] 6.6 g/dL Normal 6.3-8.0 [facility] Comment on above: Order Comment: Speci men Type: BLOOD SPECIMENOrdering Facility: [facility] Address: [address] [place] [address] Performed By: #### 3 016-3, 12216-4, 35099-2 ####[facility] LABCLIA [id number] [place] [id number] [place] Sodium [Moles/Vol] 141 mmol/L Normal 136-144 [facility] Comment on above: Order Comment: Speci men Type: BLOOD SPECIMENOrdering Facility: [facility] Address: [address] [place] [address] Performed By: #### 3 016-3, 55279-4, 50560-9 ####[facility] LABIA [id number] [place] [address] [place] Urea nitrogen [Mass/Vol] 21 mg/dL Normal 7-21 [facility] Comment on above: Order Comment: Speci men Type: BLOOD SPECIMENOrdering Facility: [facility] Address: [address] [place] [address] Performed By: #### 3 016-3, 38027-7, 37590-7 ####[facility] [id number] [place] [address] [place] HbA1c (Bld)on 11-27-2023 Average glucose Estimated from glycated hemoglobin (Bld) [Mass/Vol] 166 mg/dL Normal [facility] Comment on above: Order Comment: Speci men Type: BLOOD SPECIMENOrdering Facility: [facility] Address: [address] [place] [address] Result Comment: eAG: (Estimated average glucose) is a calculated value from HgbA1c and is players club representative of the average blood glucose level in the last 2-3 month period. Performed By: #### 5 5454-3 ####[facility] [id number] [place] [address] [place] HbA1c (Bld) [Mass fraction] 7.4 % High 4.3-5.6 [facility] Comment on above: Order Comment: Speci men Type: BLOOD SPECIMENOrdering Facility: [facility] Address: [address] [place] [address] Result Comment: Amer ican Diabetes Association guidelines indicate that patients with HgbA1c in the range 5.7-6.4% are at increased risk for development of diabetes, and intervention by lifestyle modification may be beneficial. HgbA1c greater or equal to 6.5% is considered diagnostic of diabetes. Performed By: #### 5 5454-3 ####[facility] LABCLIA [id number] [place] [address] [place] Lipid 1996 panelon 4 Cholesterol [Mass/Vol] 156 mg/dL Normal <200 [facility] Comment on above: Order Comment: Speci men Type: BLOOD SPECIMENOrdering Facility: [facility] Address: [address] [place] [address] Result Comment: <200 mg/dL, Desirable 200-239 mg/dL, Borderline high >239 mg/dL, High Performed By: #### 3 016-3, 23480-7, 68749-9 ####[facility] LABCLIA [id number] [address] STATES OF [facility] Cholesterol in HDL [Mass/Vol] 41 mg/dL Normal >39 [facility] Comment on above: Order Comment: Deana borjas Type: BLOOD SPECIMENOrdering Facility: [facility] Address: [address] [place] [address] Result Comment: 40-5 9 mg/dL, Acceptable >59 mg/dL, High: Negative risk factor for coronary heart disease <40 mg/dL, Low: Positive risk factor for coronary heart disease Performed By: #### 3 016-3, 53280-4, 21530-5 ####[facility] LABCLIA [id number] [address] [place] Cholesterol in LDL [Mass/Vol] 85 mg/dL Normal <100 [facility] Comment on above: Order Comment: Deana borjas Type: BLOOD SPECIMENOrdering Facility: [facility] Address: [address] [place] [address] Result Comment: <100 mg/dL, Optimal 100-129 mg/dL, Near optimal/above optimal 130-159 mg/dL, Borderline high 160-189 mg/dL, High >189 mg/dL, Very high Secondary prevention optimal LDL Cholesterol levels are recommended to be < 70 mg/dL Performed By: #### 3 016-3, 45316-8, 54138-2 ####[facility] LABCLIA [id number] [place] [address] [place] Cholesterol in LDL/Cholesterol in HDL [Mass ratio] 2.07 {ratio} Normal <2.54 [facility] Comment on above: Order Comment: Speci men Type: BLOOD SPECIMENOrdering Facility: [facility] Address: [address] [place] [address] Result Comment: Refe jjce: 1. National Cholesterol Education Program ATP III Guideline At-A-Glance Quick Desk Reference: National Heart, Lung, and Blood [place]. National Institutes of Health. 2001: NIH Publication No. 01-3305. 2. An International Atherosclerosis Society position paper: global recommendations for the management of dyslipidemia: executive summary, Atherosclerosis. 2014: 232(2):410-413. Performed By: #### 3 016-3, 93979-0, 56821-5 ####[facility] LABIA [id number] [place] [address] [place] Cholesterol in VLDL [Mass/Vol] 30 mg/dL High <30 [facility] Comment on above: Order Comment: Speci men Type: BLOOD SPECIMENOrdering Facility: [facility] Address: [address] [place] [address] Performed By: #### 3 016-3, 03417-8, 25003-3 ####[facility] LABCLIA [id number] [place] [address] [place] Cholesterol non HDL [Mass/Vol] 115 mg/dL Normal <130 [facility] Comment on above: Order Comment: Speci men Type: BLOOD SPECIMENOrdering Facility: [facility] Address: [address] [place] [address] Result Comment: <130 mg/dL, Optimal 130-159 mg/dL, Near optimal/above optimal 160-189 mg/dL, Borderline high 190-219 mg/dL, High >219 mg/dL, Very high Secondary prevention optimal non HDL Cholesterol levels are recommended to be <100 mg/dL Performed By: #### 3 016-3, 40259-7, 71807-2 ####[facility] LABCLIA [id number] [address] [place] Cholesterol.total/Alta sterol in HDL [Mass ratio] 3.80 {ratio} Normal <5.10 [facility] Comment on above: Order Comment: Speci men Type: BLOOD SPECIMENOrdering Facility: [facility] Address: [address] [place] [address] Performed By: #### 3 016-3, , ####[facility] LABCLIA [id number] [address] FASTING TIME 12 hrs Normal [facility] Comment on above: Order Comment: Speci men Type: BLOOD SPECIMENOrdering Facility: [facility] Address: [address] [place] [address] Performed By: #### 3 016-3, , ####[facility] LABCLIA [id number] [address] [place] Triglyceride [Mass/Vol] 148 mg/dL Normal <150 [facility] Comment on above: Order Comment: Speci men Type: BLOOD SPECIMENOrdering Facility: [facility] Address: [address] [place] [address] Result Comment: <150 mg/dL, Normal 150-199 mg/dL, Borderline high 200-499 mg/dL, High >499 mg/dL, Very high Performed By: #### 3 016-3, 96530-5, ####[facility] LABCLIA [id number] [place] [address] [place] TSH SerPl-aCncon 11-27-2023 TSH Qn 1.870 m[IU]/L Normal 0.270-4.200 [facility] Comment on above: Order Comment: Speci men Type: BLOOD SPECIMENOrdering Facility: [facility] Address: [address] [place] [address] Performed By: #### 3 016-3, 42826-2, 88761-5 ####[facility] LABCLIA [id number] MILY RODRIGUEZDESK [id number] OF [facility] CNOVon 10-10-2023 CNOV Office Visit (UCWSTR ) LINDSAY ACUNA ([id number]) 1945 F Date Time Provider Department 10/10/23 7:30 AM DAVID DUPREE [facility] During your visit today, we recorded the following information about you: Temperature Pulse Respiration Blood pressure 97.5 degrees 58/minute 18/minute 128/82 Weight 82.1 kg David Dupree 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 Denies fever or chills Denies malaise or fatigue Denies new lotions, soaps, or medicines States that she was working out in the garden the same day the rash erupted. The history is provided by the patient. No languages and literature instructor was used. Rash This is a [...] mouth daily before breakfast. blood sugar diagnostic (BrightContextUCH ULTRA TEST) test strip Test Blood Sugar [...] 1 tablet by mouth once daily. lancets (DreamNotesTOUCH DELICA PLUS LANCET) 30 gauge Test blood sugars 1 time daily. Dx: Type 2 DM Controlled E11.9. Insulin: no Chlorhexidine Gluconate (PERIDEX) 0.12 % solution Use 15 mL as instructed twice daily. Rinse around mouth for 30 seconds then expectorate blood sugar diagnostic (DreamNotesTOUCH ULTRA TEST STRIP) test strip Use to [...] state. Hematologi (more content not included)... Normal [facility] Glucose,Bedsideon 04-16-2019 Glucose [Mass/Vol] 161 mg/dL High 70-100 [facility] Comment on above: Result Comment: Test performed by glucose meter. Results may be 10%-15% lower than serum/plasma values. (CLIA ID [id number]) Performed By: #### B GLU #### [facility] [address] [place] [address] Surgical Pathologyon 019 Surgical Pathology [id number] [facility] PATH[facility]ATORY MEDICINE [address] [place] [address] FINAL SURGICAL PATHOLOGY REPORT ___ NAME: LINDSAY ACUNA : 1945 73 Y F BILLING NO.: [id number] LOCATION: 1XEO PROCEDURE 01/09/2019 DATE: SURGEON: SANTIAGO [...] characteristics determined by the clinical laboratories of [facility]. They have not been cleared by the [...] on decalcified specimens. Professional Performing Location: [address] [address]. DEPARTMENT OF PATHOLOGY AND LABORATORY MEDICINE [place], [place] [address] Normal [facility] .Auto Diffon 08-22-2018 Ammonia mass conc (P) 1.10 10 3/mcL High 0.15-1.00 [facility] ([place] Comment on above: Performed By: #### B MP, GFR #### [address] [address] Basophils #/vol (Bld) 0.00 10 3/mcL Normal 0.00-0.19 [facility] ([place]) Comment on above: Performed By: #### Roby MP, GFR #### [address] [address] Basophils/100 WBC (Bld) 0.3 % Normal 0.0-2.5 A [facility] ([place]) Comment on above: Performed By: #### Roby MP, GFR #### [address] [address] Eosinophils #/vol (Bld) 0.00 10 3/mcL Normal 0.00-0.40 [facility] ([place]) Comment on above: Performed By: #### Roby VALVERDE, GFR #### [address] [address] Eosinophils/100 WBC (Bld) 0.2 % Normal 0.0-7.0 [facility] ([place]) Comment on above: Performed By: #### Roby VALVERDE, GFR #### [address] [address] Lymphocytes #/vol (Bld) 2.20 10 3/mcL Normal 0.77-3.85 [facility] ([place]) Comment on above: Performed By: #### Roby VALVERDE, GFR #### [address] [address] Lymphocytes/100 WBC (Bld) 20.5 % Normal 10.0-50.0 [facility] ([place] Comment on above: Performed By: #### Roby MP, GFR #### [address] [address] Monocytes/100 WBC (Bld) 10.5 % Normal 1.7-13.0 A [facility] ([place]) Comment on above: Performed By: #### Roby MP, GFR #### [address] [address] Neutrophils/100 WBC (Bld) 68.5 % Normal 37.0-80.0 [facility] ([place]) Comment on above: Performed By: #### Roby MP, GFR #### [address] [address] .GFRon 08-22-2018 GFR Non- 33 ml/min/1.73sqm Normal [facility] ([place]) Comment on above: Result Comment: GFR Population [...] Performed By: #### B MP, GFR #### [place] [address] #### DORY LOPEZ, ANEU #### [address] [address] GFR 40 ml/min/1.73sqm Normal [facility] ([place]) Comment on above: Result Comment: GFR Population [...] Performed By: #### B MP, GFR #### [place] [address] #### CBC, ADIFF, ANEU #### [address] [address] .NEUABSon 08-22-2018 Neutrophils #/vol (Bld) 7.40 10 3/mcL High 2.85-6.16 [facility] ([place] Comment on above: Performed By: #### B MP, GFR #### [place] [address] BMPon 08-22-2018 Calcium mass conc 8.3 mg/dL Low 8.4-10.2 [facility] ([place] Comment on above: Performed By: #### B MP, GFR #### [place] [address] #### CBC, ADIFF, ANEU #### [address] [address] Chloride molar conc 104 mmol/L Normal 98-107 [facility] ([place]) Comment on above: Performed By: #### Roby MP, GFR #### [place] [address] #### CBC, ADIFF, ANEU #### [address] [address] CO2 molar conc 25 mmol/L Normal 23-31 [facility] ([place] Comment on above: Performed By: #### Roby MP, GFR #### [place] [address] #### CBC, ADIFF, ANEU #### [address] [address] Creatinine mass conc 1.53 mg/dL High 0.55-1.02 [facility] ([place]) Comment on above: Performed By: #### B MP, GFR #### [place] [address] #### CBC, ADIFF, ANEU #### [address] [address] Electrolyte Balance 10.0 mEq/L Normal [facility] ([place]) Comment on above: Performed By: #### B MP, GFR #### [place] [address] #### CBC, ADIFF, ANEU #### [address] [address] Glucose mass conc 149 mg/dL High 83-110 [facility] ([place] Comment on above: Performed By: #### B MP, GFR #### [address] [address] #### CBC, ADIFF, ANEU #### [address] [address] Potassium molar conc 4.3 mmol/L Normal 3.5-5.1 [facility] ([place]) Comment on above: Performed By: #### B MP, GFR #### [place] [address] #### CBC, ADIFF, ANEU #### [address] [address] Sodium molar conc 139 mmol/L Normal 136-145 [facility] ([place] Comment on above: Performed By: #### B MP, GFR #### [place] [address] #### CBC, ADIFF, ANEU #### [address] [address] Urea nitrogen mass conc 32 mg/dL High 7-18 A [facility] ([place] Comment on above: Performed By: #### B MP, GFR #### [place] [address] #### CBC, ADIFF, ANEU #### [address] [address] Urea nitrogen/Creatinine mass ratio 21 ratio Normal 7-27 [facility] ([place]) Comment on above: Performed By: #### B MP, GFR #### [place] [address] #### CBC, ADIFF, ANEU #### [address] [address] CBCon 08-22-2018 Erythrocyte distribution width Ratio (RBC) 12.6 % Normal 11.5-14.5 [facility] ([place] Comment on above: Performed By: #### B MP, GFR #### [place] [address] Hematocrit Volume Fraction (Bld) 27.5 % Low 37.0-47.0 [facility] ([place] Comment on above: Performed By: #### B MP, GFR #### [place] [address] Hemoglobin mass conc (Bld) 9.2 G/dL Low 12.0-16.0 [facility] ([place] Comment on above: Performed By: #### B MP, GFR #### [place] [address] MCH Entitic mass (RBC) 30.1 pg Normal 27.0-31.2 [facility] ([place]) Comment on above: Performed By: #### B MP, GFR #### [place] [address] MCHC mass conc (RBC) 33.5 G/dL Normal 33.0-37.0 [facility] ([place]) Comment on above: Performed By: #### B MP, GFR #### [place] [address] MCV Entitic volume (RBC) 89.8 fL Normal 80.0-94.0 [facility] ([place] Comment on above: Performed By: #### B MP, GFR #### [place] [address] Platelet mean volume Entitic volume (Bld) 9.3 fL Normal 7.4-10.4 [facility] ([place] Comment on above: Performed By: #### B MP, GFR #### [place] [address] Platelets #/vol (Bld) 224 10 3/mcL Normal 130-400 A [facility] ([place] Comment on above: Performed By: #### B MP, GFR #### [place] [id number] RBC #/vol (Bld) 3.06 10 6/mcL Low 4.20-5.40 [facility] ([place]) Comment on above: Performed By: #### B MP, GFR #### [facility] [address] [place], [place] [address] WBC #/vol (Bld) 10.80 10 3/mcL Normal 4.60-10.80 [facility] ([place] Comment on above: Performed By: #### B MP, GFR #### [address] [address] XR KNEE 1 OR 2 VIEWS RIGHTon [...] Date: 08/21/2018 9:55:37 AM Normal [facility] ([place] CT KNEE W/O CONTRAST RIGHTon 08-09-2018 CT [...] Date: 08/09/2018 5:04:12 PM Normal [facility] ([place]) .Auto Diffon 08-06-2018 Ammonia mass conc (P) 0.80 10 3/mcL Normal 0.15-1.00 [facility] ([place]) Comment on above: Performed By: #### C BC, ADIFF, ANEU #### [address] [address] #### A1C #### [address] [address] Basophils #/vol (Bld) 0.10 10 3/mcL Normal 0.00-0.19 [facility] ([place]) Comment on above: Performed By: #### C BC, ADIFF, ANEU #### [address] [address] #### A1C #### [address] [address] Basophils/100 WBC (Bld) 0.6 % Normal 0.0-2.5 A [facility] ([place]) Comment on above: Performed By: #### C BC, ADIFF, ANEU #### [place] [address] #### A1C #### [address] [address] Eosinophils #/vol (Bld) 0.20 10 3/mcL Normal 0.00-0.40 [facility] ([place]) Comment on above: Performed By: #### C BC, ADIFF, ANEU #### [address] [address] #### A1C #### [address] [address] Eosinophils/100 WBC (Bld) 1.7 % Normal 0.0-7.0 [facility] ([place]) Comment on above: Performed By: #### C BC, ADIFF, ANEU #### [place] [address] #### A1C #### [address] [address] Lymphocytes #/vol (Bld) 1.90 10 3/mcL Normal 0.77-3.85 [facility] ([place]) Comment on above: Performed By: #### C BC, ADIFF, ANEU #### [address] [address] #### A1C #### [facility] [address] [place] [address] Lymphocytes/100 WBC (Bld) 20.8 % Normal 10.0-50.0 [facility] ([place]) Comment on above: Performed By: #### C BC, ADIFF, ANEU #### [address] [address] #### A1C #### [address] [address] Monocytes/100 WBC (Bld) 9.3 % Normal 1.7-13.0 A [facility] ([place]) Comment on above: Performed By: #### C BC, ADIFF, ANEU #### [address] [address] #### A1C #### [address] [address] Neutrophils/100 WBC (Bld) 67.6 % Normal 37.0-80.0 [facility] ([place]) Comment on above: Performed By: #### C BC, ADIFF, ANEU #### [address] [address] #### A1C #### [address] [address] .GFRon 08-06-2018 GFR 51 ml/min/1.73sqm Normal [facility] ([place] Comment on above: Result Comment: GFR Population [...] Performed By: #### B MP, GFR #### [address] [address] GFR Non- 42 ml/min/1.73sqm Normal [facility] ([place] Comment on above: Result Comment: GFR Population [...] Performed By: #### B MP, GFR #### [place] [address] .NEUABSon 08-06-2018 Neutrophils #/vol (Bld) 6.20 10 3/mcL High 2.85-6.16 [facility] ([place] Comment on above: Performed By: #### C DORY SMITH, ANEU #### [address] [address] #### A1C #### [place] [address] A1Con 08-06-2018 Hemoglobin A1c/Hemoglobin.total mass fraction (Bld) 7.9 % High 4.5-6.2 [facility] ([place] Comment on above: Performed By: #### C DORY SMITH, ANEU #### [address] [address] #### A1C #### [place] [address] BMPon 08-06-2018 Calcium mass conc 9.2 mg/dL Normal 8.4-10.2 [facility] ([place] Comment on above: Performed By: #### B MP, GFR #### [place] [address] Chloride molar conc 105 mmol/L Normal 98-107 [facility] ([place] Comment on above: Performed By: #### B MP, GFR #### [address] [address] CO2 molar conc 27 mmol/L Normal 23-31 [facility] ([place] Comment on above: Performed By: #### B MP, GFR #### [address] [address] Creatinine mass conc 1.25 mg/dL High 0.55-1.02 [facility] ([place] Comment on above: Performed By: #### B MP, GFR #### [place] [address] Electrolyte Balance 11.0 mEq/L Normal [facility] ([place] Comment on above: Performed By: #### B MP, GFR #### [place] [id number] Glucose mass conc 70 mg/dL Low 83-110 [facility] ([place]) Comment on above: Performed By: #### B MP, GFR #### [place] [address] Potassium molar conc 5.0 mmol/L Normal 3.5-5.1 [facility] ([place]) Comment on above: Performed By: #### B MP, GFR #### [place] [address] Sodium molar conc 143 mmol/L Normal 136-145 [facility] ([place] Comment on above: Performed By: #### B MP, GFR #### [address] [address] Urea nitrogen mass conc 26 mg/dL High 7-18 A [facility] ([place] Comment on above: Performed By: #### B MP, GFR #### [place] [id number] Urea nitrogen/Creatinine mass ratio 21 ratio Normal 7-27 [facility] ([place] Comment on above: Performed By: #### B MP, GFR #### [address] [address] CBCon 08-06-2018 Erythrocyte distribution width Ratio (RBC) 12.2 % Normal 11.5-14.5 [facility] ([place] Comment on above: Performed By: #### C DORY SMITH ANEU #### [address] [address] #### A1C #### [address] [address] Hematocrit Volume Fraction (Bld) 34.6 % Low 37.0-47.0 [facility] ([place]) Comment on above: Performed By: #### C DORY SMITH ANEU #### [address] [address] #### A1C #### [place] [address] Hemoglobin mass conc (Bld) 11.7 G/dL Low 12.0-16.0 [facility] ([place]) Comment on above: Performed By: #### C DORY SMITH ANEU #### [place] [address] #### A1C #### [place] [address] MCH Entitic mass (RBC) 30.6 pg Normal 27.0-31.2 [facility] ([place]) Comment on above: Performed By: #### C DORY SMITH ANEU #### [address] [address] #### A1C #### [place] [address] MCHC mass conc (RBC) 33.7 G/dL Normal 33.0-37.0 [facility] ([place]) Comment on above: Performed By: #### C DORY SMITH ANEU #### [place] [address] #### A1C #### [address] [address] MCV Entitic volume (RBC) 90.9 fL Normal 80.0-94.0 [facility] ([place]) Comment on above: Performed By: #### C DORY SMITH ANEU #### [address] [address] #### A1C #### [address] [address] Platelet mean volume Entitic volume (Bld) 8.8 fL Normal 7.4-10.4 [facility] ([place] Comment on above: Performed By: #### C BC, ADIFF, ANEU #### [address] [address] #### A1C #### [address] [address] Platelets #/vol (Bld) 355 10 3/mcL Normal 130-400 A [facility] ([place]) Comment on above: Performed By: #### C BC, ADIFF, ANEU #### [address] [address] #### A1C #### [place] [address] RBC #/vol (Bld) 3.81 10 6/mcL Low 4.20-5.40 [facility] ([place]) Comment on above: Performed By: #### C BC, ADIFF, ANEU #### [address] [address] #### A1C #### [address] [address] WBC #/vol (Bld) 9.20 10 3/mcL Normal 4.60-10.80 [facility] ([place]) Comment on above: Performed By: #### C BC, ADIFF, ANEU #### [address] [address] #### A1C #### [address] [address] Vital Signs Date Time Vital Sign Value Performing Clinician Facility 10-02-2024 09:040 Body height 167.[address] Kameron Caruso MD Work Phone: [facility] 10-02-2024 09:21-040 Diastolic blood pressure 71 mm[Hg] Dr. Kameron Caruso MD Work Phone: [facility] 10-02-2024 09:21-0400 Heart rate 77 /min Dr. Kameron Caruso MD Work Phone: [facility] 10-02-2024 09:21-0400 Respiratory rate 16 /min Dr. Kameron Caruso MD Work Phone: [facility] 10-02-2024 09:21-0400 Systolic blood pressure 111 mm[Hg] Dr. Kameron Caruso MD Work Phone: [facility] 09-09-2024 09:02-0400 Heart rate 100 /min SILVINO PALAKATZLE DO 6APT 09-09-2024 07:58-0400 Blood Pressure Cuff Size SILVINO SCHEATZLE DO 6APT 09-09-2024 07:58-0400 Blood Pressure Location SILVINO SCHEATZLE DO 6APT 09-09-2024 07:58-0400 Blood Pressure Method SILVINO SCHEATZLE DO 6APT 09-09-2024 07:58-0400 Body temperature 96.8 [degF] SILVINO SCHEATZLE DO 6APT 09-09-2024 07:58-0400 Diastolic Blood Pressure Non-Invasive 78 mm[Hg] SILVINO SCHEATZLE DO 6APT 09-09-2024 07:58-0400 Heart rate 110 /min SILVINO SCHEATZLE DO 6APT 09-09-2024 07:58-0400 Reason For Taking VItal Signs SILVINO SCHEATZLE DO 6APT 09-09-2024 07:58-0400 Respiratory rate 16 /min SILVINO SCHEATZLE DO 6APT 09-09-2024 07:58-0400 Systolic Blood Pressure Non-Invasive 122 mm[Hg] SILVINO CIDATZLE DO Tyler Tariqwn 09-09-2024 02:45-0400 Body temperature 97.7 [degF] SILVINO CIDATZLE DO Tyler Tariqwn 09-09-2024 02:45-0400 Diastolic Blood Pressure Non-Invasive 60 mm[Hg] SILVINO CIDATZLE DO Tyler Tariqwn 09-09-2024 02:45-0400 Heart rate 92 /min SILVINO CIDATZLE DO Tyler Glasgow 09-09-2024 02:45-0400 Respiratory rate 16 /min SILVINO CIDATZLE DO Tyler Glasgow 09-09-2024 02:45-0400 Systolic Blood Pressure Non-Invasive 108 mm[Hg] SILVINO CIDATZLE DO Tyler Tariqwn 09-08-2024 22:28-0400 Blood Pressure Cuff Size SILVINO CIDATZLE DO Tyler Warnern 09-08-2024 22:28-0400 Blood Pressure Location SILVINO CIDATZLE DO Tyler Glasgow 09-08-2024 22:28-0400 Blood Pressure Method SILVINO CIDATZLE DO Tyler Warnern 09-08-2024 22:28-0400 Body temperature 97.88 [degF] SILVINO CIDATZLE DO Tyler Tariqwn 09-08-2024 22:28-0400 Diastolic Blood Pressure Non-Invasive 54 mm[Hg] SILVINO PALAKATZLE DO Tyler Glasgow 09-08-2024 22:28-0400 Heart rate 92 /min SILVINO CIDATZLE DO Tyler Garcia 09-08-2024 22:28-0400 Reason For Taking VItal Signs SILIVNO CIDATZLE DO Tyler Garcia 09-08-2024 22:28-0400 Respiratory rate 16 /min SILVINO CIDATZLE DO Tyler Glasgow 09-08-2024 22:28-0400 Systolic Blood Pressure Non-Invasive 118 mm[Hg] SILVINO CIDATZLE DO Tyler Glasgow 09-08-2024 18:21-0400 Heart rate 90 /min SILVINO CIDATZLE DO Tyler Glasgow 09-08-2024 09:08-0400 Blood Pressure Cuff Size SILVINO CIDATZLE DO Tyler Glasgow 09-08-2024 09:08-0400 Blood Pressure Location SILVINO CIDATZLE DO Tyler Glasgow 09-08-2024 09:08-0400 Blood Pressure Method SILVINO CIDATZLE DO Tyler Glasgow 09-08-2024 09:08-0400 Heart rate 114 /min SILVINO CIDATZLE DO Tyler Glasgow 09-08-2024 09:08-0400 Reason For Taking VItal Signs SILVINO CIDATZLE DO Tyler Glasgow 09-04-2024 10:54-0400 Body temperature 96.62 [degF] SILVINO CIDATZLE DO Tyler Glasgow 09-03-2024 00:26-0400 Body temperature 97.34 [degF] SILVINO CIDATZLE DO Tyler Glasgow 08-30-2024 22:54-0400 Body temperature 98.06 [degF] SILVINO CIDATZLE DO [facility] 08-26-2024 10:36-0400 Body weight 76 kg SILVINO CIDATZLE DO [facility] 08-19-2024 06:00-0400 Body weight 75.3 kg SILVINO SCHEATZLE DO [facility] 08-15-2024 14:27-0400 Body height 170.2 cm SILVINO CIDATZLE DO [facility] 08-15-2024 14:27-0400 Body weight 75.4 kg SILVINO CIDATZLE DO [facility] 08-15-2024 14:27-0400 Body weight 26.03 kg/m2 SILVINO CIDATZLE DO [facility] 08-15-2024 09:02-0400 Diastolic blood pressure 69 mm[Hg] Prema Ramos MD Work Phone: [facility] 08-15-2024 09:02-0400 Systolic blood pressure 128 mm[Hg] Prema Ramos MD Work Phone: [facility] 08-15-2024 07:28-0400 Heart rate 86 /min Prema Ramos MD Work Phone: [facility] 08-15-2024 07:18-0400 Body temperature 97.3 [degF] Prema Ramos MD Work Phone: [facility] 08-15-2024 07:18-0400 Respiratory rate 23 /min Prema Ramos MD Work Phone: [facility] 08-15-2024 07:18-0400 SaO2% (BldA) [Mass fraction] 95 % Prema Ramos MD Work Phone: [facility] 08-05-2024 08:00-0400 Body height 170.2 cm Prema Ramos MD Work Phone: [facility] 08-05-2024 08:00-0400 Body mass index (BMI) [Ratio] 26.94 kg/m2 Prema Ramos MD Work Phone: [facility] 08-05-2024 08:00-0400 Body weight 78.02 kg Prema Ramos MD Work Phone: 0(866)042-954530 [place] [address] 08-02-2024 13:52-0400 Body temperature 98 [degF] Dr. Kameron Caruso MD Work Phone: 2(964)[phone] [place] [address] 08-02-2024 13:52-0400 Diastolic blood pressure 91 mm[Hg] Dr. Kameron Caruso MD Work Phone: 1(884)400-845318 [place] [address] 08-02-2024 13:52-0400 Heart rate 109 /min Dr. Kameron Caruso MD Work Phone: 4(652)613-208818 [place] [address] 08-02-2024 13:52-0400 Respiratory rate 16 /min Dr. Kameron Caruso MD Work Phone: 3(716)411-768818 [place] [address] 08-02-2024 13:52-0400 SaO2% (BldA) [Mass fraction] 98 % Dr. Kameron Caruso MD Work Phone: 1(666)118-936118 [place] [address] 08-02-2024 13:52-0400 Systolic blood pressure 153 mm[Hg] Dr. Kameron Caruso MD Work Phone: 3(680)570-629718 [place] [address] 08-02-2024 12:46-0400 Body height 167.[address] Kameron Caruso MD Work Phone: 3(337)081-060118 [place] [address] 08-02-2024 12:46-0400 Body mass index (BMI) [Ratio] 26.6 kg/m2 Dr. Kameron Caruso MD Work Phone: 8(519)606-363818 [place] [address] 08-02-2024 12:46-0400 Body weight [address] Kameron Caruso MD Work Phone: 2(405)575-878018 [place] [address] 06-26-2024 09:39-0500 Body mass index (BMI) [Ratio] 27.25 kg/m2 Emma Tannhof BAGGAGE INSPECTOR.COLOR CONTROL SUPERVISOR Work Phone: [facility] 06-26-2024 09:39-0500 Body weight 78.93 kg Emma Canaleshof BAGGAGE INSPECTOR.COLOR CONTROL SUPERVISOR Work Phone: [facility] 06-26-2024 09:39-0500 Diastolic blood pressure 88 mm[Hg] Mema Tannhof BAGGAGE INSPECTOR.COLOR CONTROL SUPERVISOR Work Phone: [facility] 06-26-2024 09:39-0500 Heart rate 93 /min Emma Tannhof BAGGAGE INSPECTOR.COLOR CONTROL SUPERVISOR Work Phone: [facility] 06-26-2024 09:39-0500 Respiratory rate 16 /min Emma Canaleshof BAGGAGE INSPECTOR.COLOR CONTROL SUPERVISOR Work Phone: [facility] 06-26-2024 09:39-0500 SaO2% (BldA) [Mass fraction] 98 % Emma Canaleshof BAGGAGE INSPECTOR.COLOR CONTROL SUPERVISOR Work Phone: [facility] 06-26-2024 09:39-0500 Systolic blood pressure 144 mm[Hg] Emma Canaleshof BAGGAGE INSPECTOR.COLOR CONTROL SUPERVISOR Work Phone: [facility] 05-31-2024 08:56-0500 Diastolic blood pressure 84 mm[Hg] Kameron Caruso MD Work Phone: [facility] 05-31-2024 08:56-0500 Systolic blood pressure 136 mm[Hg] Kameron Caruso MD Work Phone: [facility] 05-31-2024 08:47-0500 Body mass index (BMI) [Ratio] 27.28 kg/m2 Kameron Caruso MD Work Phone: [facility] 05-31-2024 08:47-0500 Body weight 79 kg Kameron Caruso MD Work Phone: [facility] 05-31-2024 08:47-0500 Heart rate 100 /min Kameron Caruso MD Work Phone: [facility] 05-31-2024 08:47-0500 Respiratory rate 18 /min Kameron Caruso MD Work Phone: [facility] 11-28-2023 09:42-0400 Diastolic blood pressure 78 mm[Hg] Kameron Caruso MD Work Phone: [facility] 11-28-2023 09:42-0400 Systolic blood pressure 142 mm[Hg] Kameron Caruso MD Work Phone: [facility] 11-28-2023 09:41-0400 Body mass index (BMI) [Ratio] 27.82 kg/m2 Kameron Caruso MD Work Phone: [facility] 11-28-2023 09:41-0400 Body weight 80.56 kg Kameron Caruso MD Work Phone: [facility] 11-28-2023 09:41-0400 Heart rate 68 /min Kameron Caruso MD Work Phone: [facility] 11-28-2023 09:41-0400 Respiratory rate 18 /min Kameron Caruso MD Work Phone: [facility] 10-10-2023 07:31-0400 Body mass index (BMI) [Ratio] 28.35 kg/m2 David Pendyi BAGGAGE INSPECTOR.COLOR CONTROL SUPERVISOR Work Phone: [facility] 10-10-2023 07:31-0400 Body temperature 97.5 [degF] David Pendleantonia BAGGAGE INSPECTOR.COLOR CONTROL SUPERVISOR Work Phone: [facility] 10-10-2023 07:31-0400 Body weight 82.1 kg David Pendyi BAGGAGE INSPECTOR.COLOR CONTROL SUPERVISOR Work Phone: [facility] 10-10-2023 07:31-0400 Diastolic blood pressure 82 mm[Hg] David Pendlebury BAGGAGE INSPECTOR.COLOR CONTROL SUPERVISOR Work Phone: [facility] 10-10-2023 07:31-0400 Heart rate 58 /min David Dupree BAGGAGE INSPECTOR.COLOR CONTROL SUPERVISOR Work Phone: [facility] 10-10-2023 07:31-0400 Respiratory rate 18 /min David Pendleantonia BAGGAGE INSPECTOR.COLOR CONTROL SUPERVISOR Work Phone: [facility] 10-10-2023 07:31-0400 SaO2% (BldA) [Mass fraction] 100 % David Dupree BAGGAGE INSPECTOR.COLOR CONTROL SUPERVISOR Work Phone: [facility] 10-10-2023 07:31-0400 Systolic blood pressure 128 mm[Hg] David Dupree BAGGAGE INSPECTOR.COLOR CONTROL SUPERVISOR Work Phone: [facility] 09-29-2023 14:14-0400 Body mass index (BMI) [Ratio] 29 kg/m2 Radha Levine BAGGAGE INSPECTOR.COLOR CONTROL SUPERVISOR Work Phone: [facility] 09-29-2023 14:14-0400 Body temperature 97.81 [degF] Radha Levine BAGGAGE INSPECTOR.COLOR CONTROL SUPERVISOR Work Phone: [facility] 09-29-2023 14:14-0400 Body weight 84 kg Radha Levine BAGGAGE INSPECTOR.COLOR CONTROL SUPERVISOR Work Phone: [facility] 09-29-2023 14:14-0400 Diastolic blood pressure 91 mm[Hg] Radha Levine BAGGAGE INSPECTOR.COLOR CONTROL SUPERVISOR Work Phone: [facility] 09-29-2023 14:14-0400 Heart rate 54 /min Radha Levine BAGGAGE INSPECTOR.COLOR CONTROL SUPERVISOR Work Phone: [facility] 09-29-2023 14:14-0400 Respiratory rate 18 /min Radha Levine BAGGAGE INSPECTOR.COLOR CONTROL SUPERVISOR Work Phone: [facility] 09-29-2023 14:14-0400 SaO2% (BldA) [Mass fraction] 99 % Radha Levine BAGGAGE INSPECTOR.COLOR CONTROL SUPERVISOR Work Phone: [facility] 09-29-2023 14:14-0400 Systolic blood pressure 148 mm[Hg] Radha Levine BAGGAGE INSPECTOR.COLOR CONTROL SUPERVISOR Work Phone: [facility] 05-27-2022 09:42-0500 Body weight 83.83 kg Kameron Caruso MD Work Phone: [facility] 05-27-2022 09:42-0500 Diastolic blood pressure 84 mm[Hg] Kameron Caruso MD Work Phone: [facility] 05-27-2022 09:42-0500 Heart rate 68 /min Kameron Caruso MD Work Phone: [facility] 05-27-2022 09:42-0500 Respiratory rate 16 /min Kameron Caruso MD Work Phone: [facility] 05-27-2022 09:42-0500 Systolic blood pressure 136 mm[Hg] Kameron Caruso MD Work Phone: [facility] 03-02-2022 10:52-0400 Diastolic blood pressure 76 mm[Hg] Emma Tannhof BAGGAGE INSPECTOR.COLOR CONTROL SUPERVISOR Work Phone: [facility] 03-02-2022 10:52-0400 Heart rate 92 /min Emma Tannhof BAGGAGE INSPECTOR.COLOR CONTROL SUPERVISOR Work Phone: [facility] 03-02-2022 10:52-0400 Respiratory rate 18 /min Emma Tannhof BAGGAGE INSPECTOR.COLOR CONTROL SUPERVISOR Work Phone: [facility] 03-02-2022 10:52-0400 Systolic blood pressure 140 mm[Hg] Emma Tannhof BAGGAGE INSPECTOR.COLOR CONTROL SUPERVISOR Work Phone: [facility] 11-23-2021 09:39-0400 Body weight 83.1 kg Kameron Caruso MD Work Phone: [facility] 11-23-2021 09:39-0400 Diastolic blood pressure 80 mm[Hg] Kameron Caruso MD Work Phone: [facility] 11-23-2021 09:39-0400 Heart rate 84 /min Kameron Caruso MD Work Phone: [facility] 11-23-2021 09:39-0400 Respiratory rate 16 /min Kameron Caruso MD Work Phone: [facility] 11-23-2021 09:39-0400 Systolic blood pressure 138 mm[Hg] Kameron Caruso MD Work Phone: [facility] 10-16-2019 10:09-0400 BP Diastolic 72 mm[Hg] [facility] [place] 10-16-2019 10:09-0400 BP Systolic 144 mm[Hg] [facility] [place] [facility] [place] 10-16-2019 10:09-0400 Pulse (Heart Rate) 62 /min [facility] [place] 10-16-2019 10:09-0400 Pulse Oximetry 98 % Santiago Miller [facility] [place] , [place] 10-16-2019 10:09-0400 Respiratory Rate 18 /min [facility] [place] 10-16-2019 09:15-0400 BMI (Body Mass Index) 29.44 kg/m2 Santiago Miller [facility] [place] 10-16-2019 09:15-0400 Body Temperature 97.81 [degF] [facility] [place] 10-16-2019 09:15-0400 Body weight 85.28 kg Santiago Miller [facility] , [place] 10-16-2019 09:15-0400 Height 170.2 cm Santiago Miller [facility] , [place] 01-09-2019 12:06-0400 BP Diastolic 73 mm[Hg] [facility] [place] [facility] [place] 01-09-2019 12:06-0400 BP Systolic 121 mm[Hg] Santiago Miller [facility] [place] 01-09-2019 11:50-0400 Pulse (Heart Rate) 64 /min Santiago Miller [facility] [place] 01-09-2019 11:50-0400 Pulse Oximetry 100 % Santiago Miller [facility] , [place] 01-09-2019 11:50-0400 Respiratory Rate 18 /min [facility] [place] 01-09-2019 10:28-0400 BMI (Body Mass Index) 28.82 kg/m2 Santiago Miller [facility] [place] 01-09-2019 10:28-0400 Body weight 83.46 kg Santiago Miller [facility] , [place] 01-09-2019 10:28-0400 Height 170.2 cm Santiago Miller [facility] , [place] 01-09-2019 10:27-0400 Body Temperature 97.5 [degF] [facility] Miller [facility] [place] Encounters Encounter Date Encounter Type Care Provider Facility Start: 01-28-2025 ambulatory Efewongbe Oleghe OLS Fa cility:[facility] Start: 01-21-2025 ambulatory Efewongbe Oleghe OLS Fa cility:[facility] Start: 01-14-2025 ambulatory Efewongbe Oleghe OLS Fa cility:[facility] Start: 01-07-2025 ambulatory Efewongbe Oleghe OLS Fa cility:[facility] Start: 01-07-2025 Safia Forde Veronica - [place] Start: 12-31-2024 End: 12-31-[address] Kameron Caruso MD Work Phone: [facility] Start: 12-31-2024 End: 12-31-2024 Dr. Safia Ruelas MD [facility] Work Phone: Start: 12-24-2024 ambulatory Efewongbe Oleghe OLS Fa cility:[facility] Start: 12-24-2024 Safia Forde Veronica - [place] Start: 12-17-2024 ambulatory Efewongbe Oleghe OLS Fa cility:[facility] Start: 12-17-2024 Safia Martin - [place] Start: 12-10-2024 ambulatory Efewongbe Oleghe OLS Fa cility:[facility] Start: 12-10-2024 Safia Torres Start: 12-03-2024 ambulatory Efewongbe Oleghe OLS Fa cility:[facility] Start: 12-03-2024 Safia Forde Veronica - [place] Start: 11-28-2024 End: 11-28-[address] Kameron Caruso MD Work Phone: [facility] Start: 11-28-2024 End: 11-28-2024 Bret WILKERSON -[facility] [place] Work Phone: Start: 11-26-2024 ambulatory Efewongbe Oleghe OLS Fa cility:[facility] Start: 11-26-2024 Registered Referred Safia CANAS [place] Start: 11-26-2024 Safia Martin - [place] Start: 11-25-2024 ambulatory Balbirjean mariejosé antonio Cheoquyen OLS Fa cility:[facility] Start: 11-25-2024 Registered Referred Safia Torres Start: 11-25-2024 Safia Martin - [place] Start: 11-20-2024 End: 11-20-[address] Kameron Caruso MD Work Phone: [facility] Start: 11-20-2024 End: 11-20-[facility] Start: 11-19-2024 ambulatory Balbirjean mariejosé antonio Ruelas OLS Fa cility:[facility] Start: 11-19-2024 Registered Referred Safia CANAS - [place] Start: 11-19-2024 Safia Martin - [place] Start: 11-12-2024 ambulatory Balbirjean mariejosé antonio Cheoquyen VARGAS Fa cility:[facility] Start: 11-12-2024 Registered Referred Safia Torres Start: 11-12-2024 Safia Martin - [place] Start: 11-05-2024 ambulatory Kameron Caruso Facilit y:[facility] Start: 11-05-2024 Registered Referred Safia Torres Start: 11-05-2024 Safia Martin - [place] Start: 10-30-2024 End: 10-30-[address] Kameron Caruso MD Work Phone: [facility] Start: 10-30-2024 End: 10-30-2024 [facility] Start: 10-30-2024 End: 10-30-2024 Bret WILKERSON -[facility] Work Phone: Start: 10-29-2024 End: 10-29-[address] Safia Ruelas MD -[facility] Work Phone: Start: 10-29-2024 End: 10-29-[address] Kameron Caruso MD Work Phone: [facility] Start: 10-29-2024 Registered Referred Safia Torres Start: 10-29-2024 End: 10-29-2024 Dr. Safia Ruelas MD -[facility] Work Phone: Start: 10-23-2024 ambulatory Safia Ruelas OLS Fa cility:[facility] Start: 10-23-2024 Registered Referred Safia Torres Start: 10-23-2024 Safia Torres Start: 10-22-2024 End: 10-22-2024 [facility] Start: 10-22-2024 End: 10-22-[address] Kameron Caruso MD Work Phone: [facility] Start: 10-22-2024 Registered Referred Safia Torres Start: 10-22-2024 End: 10-22-2024 Bret WILKERSON -[facility] [place] Work Phone: Start: 10-15-2024 ambulatory Safia Ruelas OLS Fa cility:[facility] Start: 10-15-2024 Registered Referred Safia Torres Start: 10-15-2024 Safia Torres Start: 10-09-2024 End: 10-09-[address] Kameron Caruso MD Work Phone: [facility] Start: 10-09-2024 End: 10-09-2024 Patient encounter procedure Bret WILKERSON -[facility] Work Phone: Start: 10-09-2024 End: 10-09-2024 Bret WILKERSON -[facility] [place] Work Phone: Start: 10-08-2024 ambulatory Efsherry Ruelas OLS Fa cility:[facility] Start: 10-08-2024 Registered Referred Safia Torres Start: 10-08-2024 Safia Torres Start: 10-02-2024 End: 10-02-[address] Mj Benavides MD -[facility] Work Phone: Start: 10-02-2024 End: 10-02-2024 Dr. Mj Benavides MD -[facility] Work Phone: Start: 10-02-2024 End: 10-02-[address] Kameron Caruso MD Work Phone: [facility] Work Phone: Start: 10-01-2024 ambulatory Efsherry Ruelas OLS Fa cility:[facility] Start: 10-01-2024 Registered Referred Safia Torres Start: 10-01-2024 Safia Torres Start: 09-29-2024 ambulatory Efewongbe Olebonie OLS Fa cility:[facility] Start: 09-29-2024 Registered Referred Safia Torres Start: 09-29-2024 Safia Torres Start: 09-24-2024 ambulatory Efewongbe Enricoe OLS Fa cility:[facility] Start: 09-24-2024 Registered Referred Efsherry Torres Start: 09-24-2024 Safia Torres Start: 09-17-2024 ambulatory Safia VARGAS Fa cility:[facility] Start: 09-17-2024 Registered Referred Safia Torres Start: 09-17-2024 Safia Torres Start: 09-11-2024 End: 09-11-2024 ambulatory Bret Snyder HERB DOCTOR Facility:[facility] Start: 09-11-2024 End: 09-11-2024 Patient encounter procedure Bret Snyder HERB DOCTOR- -[facility] Work Phone: Start: 09-11-2024 End: 09-11-2024 Bret Snyder HERB DOCTOR-C [facility] Work Phone: Start: 09-10-2024 End: 09-10-[address] Safia Ruelas MD -[facility] Work Phone: Start: 09-10-2024 End: 09-10-2024 ambulatory Kameron [facility] Facility:[facility] Start: 09-10-2024 Registered Referred Safia Torres Start: 09-10-2024 End: 09-10-2024 Dr. [facility]ia [facility] Work Phone: Start: 08-30-2024 End: 08-30-2024 Telephone encounter Kameron Caruso MD Work Phone: [facility] Comment on above: Tyler [facility] requesti ng verbal agree to follow Start: 08-15-2024 End: 09-09-2024 Evaluation and management of inpatient SILVINO HA DO Tyler Garcia Start: 08-09-2024 Evaluation and manag ement of inpatient KAMERON CARUSO Facility:[facility] Start: 08-06-2024 Evaluation and manag ement of inpatient CATA [facility] Start: 08-02-2024 End: 08-02-2024 ambulatory JUVENTINO ROGERS Facility:[facility] Start: 08-02-2024 End: 08-15-2024 Evaluation and management [...] Kameron Caruso MD Work Phone: [facility] [place] Comment on above: medication not on cu rrent med list Start: 06-26-2024 End: 06-26-2024 Office outpatient visit 25 minutes Emma Sotomayor APRN.CNP Work Phone: [facility] [place] Comment on above: Atrial fibrillation, unspecified type (HCC) (Primary Dx); Hypothyroidism, unspecified type; Need for malaria prophylaxis Start: 06-26-2024 End: 06-26-2024 ambulatory EMMA SOTOMAYOR Facility:[facility] Start: 06-25-2024 ambulatory KAMERON CARUSO Facil ity:[facility] Start: 06-24-2024 End: 06-24-2024 Telephone encounter Kameron Caruso MD Work Phone: [facility] [place] Comment on above: Patient Update Start: 06-11-2024 End: 06-11-2024 Telephone encounter Kameron Caruso MD Work Phone: [facility] [place] Comment on above: Results Start: 06-11-2024 End: 06-11-2024 [facility] Facility:[facility] Start: 06-10-2024 End: 06-11-2024 Telephone encounter Kameron Caruso MD Work Phone: [facility] [place] Comment on above: Medication Problem Start: 05-31-2024 End: 05-31-2024 [facility] Facility:[facility] Start: 05-31-2024 End: 05-31-2024 Patient encounter procedure Kameron Caruso MD Work Phone: [facility] [place] Comment on above: Essential hypertensi on, [...] type (HCC) Start: 05-23-2024 End: 05-23-2024 [facility] Facility:[facility] Start: 11-28-2023 End: 11-28-2023 [facility] Start: 11-28-2023 End: 11-28-2023 Patient encounter procedure Kameron Caruso MD Work Phone: [facility] [place] Comment on above: 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, unspecified CKD stage, 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 insulin use (HCC) (Primary Dx); Essential hypertension, benign; Chronic kidney disease, stage 3a (HCC); Hyperlipidemia, unspecified hyperlipidemia type; Hypothyroidism, unspecified type; Edema of left lower leg; Memory loss; Type 2 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, without long-term current use of insulin (HCC) Start: 11-27-2023 End: 11-27-2023 [facility] Facility:[facility] Start: 10-10-2023 End: 10-10-2023 [facility] Start: 10-10-2023 End: 10-10-2023 Office outpatient visit 25 minutes David Dupree APRN.CNP Work Phone: [facility] Comment on above: Rash (Primary Dx) Start: 09-29-2023 End: 09-29-2023 ambulatory KAMERON CARUSO Facility:[facility] Start: 09-29-2023 End: 09-29-2023 Patient encounter procedure Radha Levine BAGGAGE INSPECTOR.COLOR CONTROL SUPERVISOR Work Phone: [facility] Comment on above: Allergic contact lexi matitis due to plant (Primary Dx) Start: 09-19-2023 Refill Kameron nixon MD Work Phone: [facility] [place] Comment on above: Refill Request Start: 04-08-2023 Telephone encounter Kameron bucio MD Work Phone: [address] [place] [address] Comment on above: Refill Request Start: 11-25-2022 Telephone encounter Kameron bucio MD Work Phone: [facility] [place] Comment on above: Patient Question Start: 05-27-2022 End: 05-27-2022 Patient encounter procedure Kameron Caruso MD Work Phone: [facility] Comment on above: Essential hypertensi on, benign (Primary Dx); Hypothyroidism, unspecified type; Type 2 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, without long-term current use of insulin (HCC); Hyperlipidemia, unspecified hyperlipidemia type; Chronic kidney disease, stage 3a (HCC); Edema of left lower leg; Wellness examination Start: 05-27-2022 End: 05-27-2022 Patient encounter status [facility]on [facility]uso MD [facility] Start: 04-11-2022 Refill Kameron nixon MD Work Phone: [facility] Comment on above: Refill Request Start: 03-02-2022 ambulatory Kameron nixon MD Work Phone: [facility] Comment on above: Back Pain Start: 03-02-2022 End: 03-02-2022 Patient encounter procedure Emma Sotomayor BAGGAGE INSPECTOR.COLOR CONTROL SUPERVISOR Work Phone: [facility] [place] Comment on above: Acute midline low ba ck pain without sciatica (Primary Dx) Start: 01-11-2022 Refill Mj ORTIZ RN.COLOR CONTROL SUPERVISOR Work Phone: [facility] Comment on above: Refill Request Start: 01-11-2022 Refill Kameron nixon MD Work Phone: [facility] Comment on above: Refill Request Start: 12-16-2021 Telephone encounter Kameron bucio MD Work Phone: [facility] [place] Comment on above: Diabetic Testing Sup plies Start: 11-23-2021 End: 11-23-2021 Refill Kameron Caruso MD Work Phone: [facility] Comment on above: 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, unspecified CKD stage, 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 insulin use (HCC) (Primary Dx); Essential hypertension, benign; Hyperlipidemia, unspecified hyperlipidemia type; Stage 3b chronic kidney disease (HCC); Hypothyroidism, unspecified type; Memory loss Start: 10-14-2021 Refill Kameron nixon MD Work Phone: [facility] Comment on above: Refill Request Start: 09-27-2021 Telephone encounter Kameron bucio MD Work Phone: [facility] Comment on above: information requeste d/rxs needed Start: 09-13-2021 Telephone encounter Kameron bucio MD Work Phone: [facility] Comment on above: Patient Question; Me [...] Start: 01-07-2025 Platelet mean volume determination Dr. Kaemron Caruso MD Work Phone: Start: 12-31-2024 Blood [...] Mean corpuscular hem oglobin concentration determination Dr. Kaemron Caruso MD Work Phone: Start: 12-17-2024 Nucleated [...] Phone: Start: 08-15-2024 Assay of magnesium Abdoule rin Nadine BAGGAGE INSPECTOR-COLOR CONTROL SUPERVISOR Work Phone: Start: 08-15-2024 Glucose measurement, blood Christos Voss MD Work Phone: Start: 08-14-2024 Glucose measurement, blood Christos Voss MD Work Phone: Start: 08-14-2024 Glucose measurement, blood Christos Voss MD Work Phone: Start: 08-14-2024 Glucose measurement, blood Christos Voss MD Work Phone: Start: 08-14-2024 Assay of magnesium Nase rin M Nadine BAGGAGE INSPECTOR-COLOR CONTROL SUPERVISOR Work Phone: Start: 08-13-2024 Glucose measurement, blood Christos Voss MD Work Phone: Start: 08-13-2024 Glucose measurement, blood Christos Voss MD Work Phone: Start: 08-13-2024 Glucose measurement, blood Christos Voss MD Work Phone: Start: 08-13-2024 Glucose measurement, blood Felicity Castellano MD Work Phone: Start: 08-13-2024 Assay of magnesium Nase rin M Nadine BAGGAGE INSPECTOR-COLOR CONTROL SUPERVISOR Work Phone: Start: 08-13-2024 Glucose measurement, blood Felicity Castellano MD Work Phone: Start: 08-12-2024 Glucose measurement, blood Felicity Castellano MD Work Phone: Start: 08-12-2024 Glucose measurement, blood Felicity Castellano MD Work Phone: Start: 08-12-2024 Glucose measurement, blood Felicity Castellano MD Work Phone: Start: 08-12-2024 Assay of magnesium Nase rin M Nadine BAGGAGE INSPECTOR-COLOR CONTROL SUPERVISOR Work Phone: Start: 08-12-2024 Glucose measurement, blood Felicity Castellano MD Work Phone: Start: 08-11-2024 Glucose measurement, blood Felicity Castellano MD Work Phone: Start: 08-11-2024 Glucose measurement, blood Felicity Castellano MD Work Phone: Start: 08-11-2024 Glucose measurement, blood Felicity Castellano MD Work Phone: Start: 08-11-2024 Assay of magnesium Nase rin M Nadine BAGGAGE INSPECTOR-COLOR CONTROL SUPERVISOR Work Phone: Start: 08-10-2024 Glucose measurement, blood Felicity Castellano MD Work Phone: Start: 08-10-2024 Glucose measurement, blood Felicity Castellano MD Work Phone: Start: 08-10-2024 End: 08-10-2024 Culture bacterial blood aerobic w/id isolates Radha Gr BAGGAGE INSPECTOR-COLOR CONTROL SUPERVISOR Work Phone: Start: 08-10-2024 Glucose measurement, blood Felicity Castellano MD Work Phone: Start: 08-10-2024 End: 08-10-2024 Glucose measurement, blood Felicity Castellano MD Work Phone: Start: 08-10-2024 Glucose measurement, blood Felicity Castellano MD Work Phone: Start: 08-10-2024 Assay of magnesium Abram Hwang Nadine BAGGAGE INSPECTOR-COLOR CONTROL SUPERVISOR Work Phone: Start: 08-10-2024 Glucose measurement, blood [...] Start: 08-09-2024 Assay of magnesium Abram Mccoy BAGGAGE INSPECTOR-COLOR CONTROL SUPERVISOR Work Phone: Start: 08-09-2024 Glucose measurement, blood Felicity Castellano MD Work Phone: Start: 08-08-2024 Glucose measurement, blood Felicity Castellano MD Work Phone: Start: 08-08-2024 Culture bct isol&prs mptv id isolate ea urine Bella Cardenas BAGGAGE INSPECTOR-COLOR CONTROL SUPERVISOR Work Phone: Start: 08-08-2024 EXTRA MICRO Bella matthews BAGGAGE INSPECTOR-COLOR CONTROL SUPERVISOR Work Phone: Start: 08-08-2024 URINALYSIS REFLEX TO CULTURE Bella Cardenas BAGGAGE INSPECTOR-COLOR CONTROL SUPERVISOR Work Phone: Start: 08-08-2024 Ct head/brain w/o co ntrast material Bella Cardenas BAGGAGE INSPECTOR-COLOR CONTROL SUPERVISOR Work Phone: Start: 08-08-2024 Glucose measurement, blood Felicity Castellano MD Work Phone: Start: 08-08-2024 End: 08-08-2024 Glucose measurement, blood Felicity Castellano MD Work Phone: Start: 08-08-2024 Assay of magnesium Abram Hwang Nadine BAGGAGE INSPECTOR-COLOR CONTROL SUPERVISOR Work Phone: Start: 08-07-2024 Glucose measurement, blood Felicity Castellano MD Work Phone: Start: 08-07-2024 Glucose measurement, blood Felicity Castellano MD Work Phone: Start: 08-07-2024 Glucose measurement, blood Felicity Castellano MD Work Phone: Start: 08-07-2024 Glucose measurement, blood Felicity Castellano MD Work Phone: Start: 08-06-2024 Glucose measurement, blood Felicity Castellano MD Work Phone: Start: 08-06-2024 Assay of magnesium Abram Hwang Nadine BAGGAGE INSPECTOR-COLOR CONTROL SUPERVISOR Work Phone: Start: 08-06-2024 Glucose measurement, blood Felicity Castellano MD Work Phone: Start: 08-06-2024 Glucose measurement, blood Felicity Castellano MD Work Phone: Start: 08-06-2024 Radiologic exam swal low function contrast study Shanna Russ BAGGAGE INSPECTOR-COLOR CONTROL SUPERVISOR Work Phone: Start: 08-06-2024 SPEECH MODIFIED KEAGAN UM SWALLOW Shanna Russ BAGGAGE INSPECTOR-COLOR CONTROL SUPERVISOR Work Phone: Start: 08-06-2024 Glucose measurement, blood Felicity Castellano MD Work Phone: Start: 08-05-2024 Glucose measurement, blood Felicity Castellano MD Work Phone: Start: 08-05-2024 Assay of magnesium Nase rin M Nadine BAGGAGE INSPECTOR-COLOR CONTROL SUPERVISOR Work Phone: Start: 08-05-2024 Glucose measurement, blood Felicity Castellano MD Work Phone: Start: 08-05-2024 Glucose measurement, blood Felicity Castellano MD Work Phone: Start: 08-05-2024 Echo tthrc r-t 2d w/wom-mode compl spec&colr d Taran Traore BAGGAGE INSPECTOR-COLOR CONTROL SUPERVISOR Work Phone: Start: 08-05-2024 Glucose measurement, blood Felicity Castellano MD Work Phone: Start: 08-05-2024 Assay of magnesium Nase rin M Nadine BAGGAGE INSPECTOR-COLOR CONTROL SUPERVISOR Work Phone: Start: 08-05-2024 Glucose measurement, blood [...] Start: 08-04-2024 Assay of magnesium Abram Mccoy BAGGAGE INSPECTOR-COLOR CONTROL SUPERVISOR Work Phone: Start: 08-04-2024 Glucose measurement, blood Richard Mejia MD Work Phone: Start: 08-03-2024 Ct head/brain w/o co ntrast material Shaila Méndez PA-C Start: 08-03-2024 Sodium serum plasma or whole blood Shanna Denise MD Work Phone: Start: 08-03-2024 Glucose measurement, blood Richard Mejia MD Work Phone: Start: 08-03-2024 Radiologic exam abdo men 1 view Balbir Mccoy BAGGAGE INSPECTOR-COLOR CONTROL SUPERVISOR Work Phone: Start: 08-03-2024 Glucose measurement, blood [...] brain stem w/o contrast material Taran Traore BAGGAGE INSPECTOR-COLOR CONTROL SUPERVISOR Work Phone: Start: 08-03-2024 ABORH TYPE RECONFIRMATION Cindy CORDOVA Work Phone: Start: 08-03-2024 Assay of magnesium Abram Mccoy BAGGAGE INSPECTOR-COLOR CONTROL SUPERVISOR Work Phone: Start: 08-02-2024 Glucose measurement, blood [...] Performed By: #### X M #### [facility] ([facility]) [address] [place] [address] Start: 08-02-2024 EXTRA MICRO Taran Traore BAGGAGE INSPECTOR-COLOR CONTROL SUPERVISOR Work Phone: Start: 08-02-2024 Hemoglobin glycosylated a1c Balbir Mccoy BAGGAGE INSPECTOR-COLOR CONTROL SUPERVISOR Work Phone: Start: 08-02-2024 Hepatic function panel Balbir Hwang Nadine BAGGAGE INSPECTOR-COLOR CONTROL SUPERVISOR Work Phone: Start: 08-02-2024 Iadna s aureus ampli fied probe tq Abdoulnohelia Hwang Nadine BAGGAGE INSPECTOR-COLOR CONTROL SUPERVISOR Work Phone: Start: 08-02-2024 URINALYSIS REFLEX TO CULTURE Taran Traore BAGGAGE INSPECTOR-COLOR CONTROL SUPERVISOR Work Phone: Start: 08-02-2024 Urnls dip stick/tabl et reagent auto microscopy Taran Traore BAGGAGE INSPECTOR-COLOR CONTROL SUPERVISOR Work Phone: Start: 08-02-2024 SARS-CoV-2, Influenz a [...] Author Start: 08-15-2025 Complete blood count Hemoglobin/Hematocrit [facility] Start: 08-15-2025 Creatinine measurement Serum Creatinine [facility] Start: 08-02-2025 Thyroid stimulating hormone measurement [facility] Start: 06-26-2025 Annual PCP Team Chronic Disease Visit Annual PCP Team Chronic Disease Visit [facility] Start: 05-31-2025 Annual PCP Team Chronic Disease Visit Annual PCP Team Chronic Disease Visit [facility] Start: 05-31-2025 Covid-19 Vaccine ( season) Covid-19 Vaccine () [facility] Comment on above: Postponed from 01/14/2024 (Declined at t his time) Start: 05-31-2025 Pneumococcal Vaccine: 50+ (2 of 2 - PPSV23) Pneumococcal Vaccine: 50+ (2 of 2 - PPSV23) [facility] Comment on above: Postponed from 12/19/2019 (Declined at t his time) Start: 05-23-2025 Creatinine measurement Serum Creatinine [facility] Start: 05-23-2025 Hepatitis B screening Urine Albumin:Creatinine Ratio [facility] Start: 05-23-2025 Hepatitis B surface antibody level LDL Cholesterol [facility] Start: 02-02-2025 Hemoglobin A1c measurement [facility]C [facility] Start: 01-13-2025 Influenza vaccination [facility] Start: 01-03-2025 Glaucoma screening Dilated Retinal Exam [facility] Start: 12-24-2024 End: 12-24-2024 Patient encounter procedure 12/24/2024 9:20 AM EDT Office Visit Family [facility] [address] [place], [place] [id number] Kameron Caruso MD [address] [place], [place] [id number] 6 month follow up [facility] [place] Comment on above: 6 month follow up Start: 11-28-2024 End: 02-27-2025 Comprehensive metabolic 2000 panel - Serum or Plasma COMPREHENSIVE METABOLIC PANEL Lab Routine Essential hypertension, benign Chronic kidney disease, stage 3a (HCC) Hyperlipidemia, unspecified hyperlipidemia type Expected: 11/28/2024 (Approximate), Expires: 02/27/2025 [facility] Work Phone: Comment on above: Expected: 11/28/2024 (Approximate), Expi res: 02/27/2025 Start: 11-28-2024 End: 02-27-2025 Hemoglobin A1c in Blood HEMOGLOBIN A1C Lab Routine Expected: 11/28/2024 (Approximate), Expires: 02/27/2025 [facility] Comment on above: Expected: 11/28/2024 (Approximate), Expi res: 02/27/2025 Start: 11-28-2024 End: 02-27-2025 Lipid 1996 panel - Serum or Plasma LIPID PANEL BASIC Lab Routine Essential hypertension, benign Hyperlipidemia, unspecified hyperlipidemia type Expected: 11/28/2024 (Approximate), Expires: 02/27/2025 [facility] Comment on above: Expected: 11/28/2024 (Approximate), Expi res: 02/27/2025 Start: 11-28-2024 End: 02-27-2025 Thyrotropin [Units/volume] in Serum or Plasma THYROID STIMULATING HORMONE Lab Routine Hypothyroidism, unspecified type Expected: 11/28/2024 (Approximate), Expires: 02/27/2025 [facility] Comment on above: Expected: 11/28/2024 (Approximate), Expi res: 02/27/2025 Start: 11-27-2024 Annual PCP Team Chronic Disease Visit Annual PCP Team Chronic Disease Visit [facility] Start: 11-27-2024 Anxiety Screening Anxiety Screening [facility] Start: 11-27-2024 Depression Screening Depression Screening [facility] Start: 11-27-2024 RSV Vaccine (1 - 1-dose 60+ series) RSV Vaccine (1 - 1-dose 60+ series) [facility] Comment on above: Postponed from 2004 (Declined at t his time) Start: 11-27-2024 RSV Vaccine (1 - 1-dose 75+ series) RSV Vaccine (1 - 1-dose 75+ series) [facility] Comment on above: Postponed from 10/26/2019 (Declined at t his time) Start: 11-26-2024 Creatinine measurement Serum Creatinine [facility] Start: 11-26-2024 Hepatitis B surface antibody level LDL Cholesterol [facility] Start: 11-20-2024 Hemoglobin A1c measurement HbA[facility]C [facility] Start: 11-11-2024 Influenza vaccination Influenza Vaccine (#1) [facility] Comment on above: Postponed from 01/14/2024 (Declined at t his time) Start: 10-08-2024 End: 10-08-2024 ambulatory [facility] Start: 10-02-2024 Evaluation of diagnostic study results 12 Lead EKG performed by [facility] Start: 08-02-2024 [facility] Start: 08-02-2024 SARS-CoV-2, Influenza & RSV (PCR) SARS-CoV-2, Influenza & RSV (PCR) [facility] Start: 08-02-2024 End: 08-02-2024 [facility] Start: 08-02-2024 Electrocardiographic procedure [facility] Start: 08-02-2024 Oxygen therapy [facility] Start: 07-24-2024 End: 10-23-2024 Thyrotropin [Units/volume] in Serum or Plasma THYROID STIMULATING HORMONE Lab Routine Hypothyroidism, unspecified type Expected: 07/24/2024, Expires: 10/23/2024 [facility] Work Phone: Comment on above: Expected: 07/24/2024, Expires: Start: 07-24-2024 End: 10-23-2024 Thyroxine (T4) free [Mass/volume] in Serum or Plasma T4 FREE/FREE THYROXINE Lab Routine Hypothyroidism, unspecified type Expected: 07/24/2024, Expires: 10/23/2024 [facility] Comment on above: Expected: 07/24/2024, Expires: Start: 06-25-2024 End: 06-25-2024 Patient encounter procedure 06/25/2024 9:40 AM EST Office Visit [facility] [place] [address] [place] [address] Kameron Caruso MD [address] [place] [address] 1 mo f/u, new dx afib. [facility] [place] Comment on above: 1 mo f/u, new dx afib. Start: 06-11-2024 End: 06-11-2024 Patient encounter procedure 06/11/2024 8:50 AM EST Office Visit Cardiology [address] [place] [address] Atrial fibrillation, unspecified type (HCC) [I48.91] Cardiology Comment on above: Atrial fibrillation, unspecified type (H CC) [I48.91] Start: 05-30-2024 Annual PCP Team Chronic Disease Visit Annual PCP Team Chronic Disease Visit [facility] Start: 05-30-2024 End: 08-29-2024 Comprehensive metabolic 2000 panel - Serum or Plasma COMPREHENSIVE METABOLIC PANEL Lab Routine Type 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, unspecified CKD stage, 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 insulin use (HCC) Essential hypertension, benign Chronic kidney disease, stage 3a (HCC) Hyperlipidemia, unspecified hyperlipidemia type Expected: 05/30/2024 (Approximate), Expires: 08/29/2024 [facility] Work Phone: Comment on above: Expected: 05/30/2024 (Approximate), Expi res: 08/29/2024 Start: 05-30-2024 Covid-19 Vaccine () Covid-19 Vaccine () [facility] Comment on above: Postponed from 01/13/2023 (Declined at t his time) Start: 05-30-2024 End: 08-29-2024 Hemoglobin A1c in Blood HEMOGLOBIN A1C Lab Routine Type 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, unspecified CKD stage, 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 insulin use (HCC) Expected: 05/30/2024 (Approximate), Expires: 08/29/2024 [facility] Comment on above: Expected: 05/30/2024 (Approximate), Expi res: 08/29/2024 Start: 05-30-2024 Hepatitis C screening Hepatitis C Screening [facility] Comment on above: Postponed from 1962 (Declined at t his time) Start: 05-30-2024 End: 08-29-2024 Lipid 1996 panel - Serum or Plasma LIPID PANEL BASIC Lab Routine Type 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, unspecified CKD stage, 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 insulin use (HCC) Essential hypertension, benign Hyperlipidemia, unspecified hyperlipidemia type Expected: 05/30/2024 (Approximate), Expires: 08/29/2024 [facility] Comment on above: Expected: 05/30/2024 (Approximate), Expi res: 08/29/2024 Start: 05-30-2024 End: 08-29-2024 Microalbumin/Creatinine [Mass Ratio] in Urine ALBUMIN/CREATININE RATIO, URINE Lab Routine Type 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, unspecified CKD stage, 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 insulin use (HCC) Expected: 05/30/2024 (Approximate), Expires: 08/29/2024 [facility] Comment on above: Expected: 05/30/2024 (Approximate), Expi res: 08/29/2024 Start: 05-30-2024 Pneumococcal Vaccine: 65+ (2 of 2 - PPSV23 or PCV20) Pneumococcal Vaccine: 65+ (2 of 2 - PPSV23 or PCV20) [facility] Comment on above: Postponed from 12/19/2019 (Declined at t his time) Start: 05-30-2024 End: 08-29-2024 Thyrotropin [Units/volume] in Serum or Plasma THYROID STIMULATING HORMONE Lab Routine Hypothyroidism, unspecified type Expected: 05/30/2024 (Approximate), Expires: 08/29/2024 [facility] Comment on above: Expected: 05/30/2024 (Approximate), Expi res: 08/29/2024 Start: 05-30-2024 End: 05-30-2024 Patient encounter procedure 05/30/2024 9:40 AM EST Office Visit Family Medicine [place] [address] [place] [id number] Kameron Caruso MD [address] [place] [id number] 6 mo f/u Family [place] Pitts Comment on above: 6 mo f/u Start: 05-29-2024 Hemoglobin A1c measurement HbA1C [facility] Start: 05-16-2024 Creatinine measurement Serum Creatinine [facility] Start: 05-16-2024 Hepatitis B screening Urine Albumin:Creatinine Ratio [facility] Start: 05-16-2024 Hepatitis B surface antibody level LDL Cholesterol [facility] Start: 05-15-2024 Advance Directive Discussion Advance Directive Discussion [facility] Start: 01-14-2024 Influenza vaccination [facility] Start: 01-14-2024 [facility] Start: 01-04-2024 Glaucoma screening Dilated Retinal Exam [facility] Start: 01-04-2024 Hepatitis C antibody, confirmatory test Dilated Retinal Exam [facility] Start: 11-28-2023 End: 11-28-2023 Patient encounter procedure 11/28/2023 9:40 AM EDT Office Visit Family [place] Pitts [address] [place] [id number] Kameron Caruso MD [address] [place] [id number] 6 mo follow up Family Medicine Gisselle Comment on above: 6 mo follow up Start: 11-26-2023 ANNUAL PCP TEAM CHRONIC DISEASE VISIT ANNUAL PCP TEAM CHRONIC DISEASE VISIT [facility] Start: 11-26-2023 BP CONTROLLED (<130/80) BP CONTROLLED (<130/80) [facility] Start: 11-23-2023 Complete blood count Hemoglobin/Hematocrit [facility] Start: 11-23-2023 HEMOGLOBIN/HEMATOCRIT HEMOGLOBIN/HEMATOCRIT [facility] Start: 11-23-2023 Hepatitis B surface antibody level LDL CHOLESTEROL [facility] Start: 11-23-2023 SERUM CREATININE SERUM CREATININE [facility] Start: 11-14-2023 Hemoglobin A1c measurement [facility] Start: 05-27-2023 ANNUAL PCP TEAM CHRONIC DISEASE VISIT ANNUAL PCP TEAM CHRONIC DISEASE VISIT [facility] Start: 05-27-2023 COVID-19 VACCINE (2 - Booster for Alyssa series) COVID-19 VACCINE (2 - Booster for Alyssa series) [facility] Comment on above: Postponed from 09/17/2020 (Declined at t his time) Start: 05-27-2023 HEPATITIS C SCREENING HEPATITIS C SCREENING [facility] Comment on above: Postponed from 1962 (Declined at t his time) Start: 05-25-2023 Hemoglobin A1c/Hemoglobin.total in Blood HBA1C [facility] Start: 05-19-2023 HEMOGLOBIN/HEMATOCRIT HEMOGLOBIN/HEMATOCRIT [facility] Start: 05-19-2023 Hepatitis B surface antibody level LDL CHOLESTEROL [facility] Start: 05-19-2023 SERUM CREATININE SERUM CREATININE [facility] Start: 05-15-2023 Advance Directive Discussion Advance Directive Discussion [facility] Start: 05-15-2023 Behavioral Health Screening Behavioral Health Screening [facility] Start: 03-02-2023 ANNUAL PCP TEAM CHRONIC DISEASE VISIT ANNUAL PCP TEAM CHRONIC DISEASE VISIT [facility] Start: 01-13-2023 Covid-19 Vaccine () Covid-19 Vaccine () [facility] Start: 01-13-2023 Influenza vaccination [facility] Start: 12-27-2022 Hepatitis C antibody, confirmatory test DILATED RETINAL EXAM [facility] Start: 11-24-2022 End: 01-24-2023 CBC panel - Blood by Automated count CBC Lab Routine Essential hypertension, benign Hypothyroidism, unspecified type Expected: 11/24/2022 (Approximate), Expires: 01/24/2023 [facility] Work Phone: Comment on above: Expected: 11/24/2022 (Approximate), Expi res: 01/24/2023 Start: 11-24-2022 End: 01-24-2023 Comprehensive metabolic 2000 panel - Serum or Plasma COMP METABOLIC PANEL Lab Routine Essential hypertension, benign Type 2 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, without long-term current use of insulin (HCC) Hyperlipidemia, unspecified hyperlipidemia type Expected: 11/24/2022 (Approximate), Expires: 01/24/2023 [facility] Work Phone: Comment on above: Expected: 11/24/2022 (Approximate), Expi res: 01/24/2023 Start: 11-24-2022 End: 01-24-2023 Hemoglobin A1c in Blood HGB A1C Lab Routine Type 2 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, without long-term current use of insulin (HCC) Expected: 11/24/2022 (Approximate), Expires: 01/24/2023 [facility] Work Phone: Comment on above: Expected: 11/24/2022 (Approximate), Expi res: 01/24/2023 Start: 11-24-2022 End: 01-24-2023 Lipid 1996 panel - Serum or Plasma LIPID PANEL BASIC Lab Routine Essential hypertension, benign Type 2 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, without long-term current use of insulin (HCC) Hyperlipidemia, unspecified hyperlipidemia type Expected: 11/24/2022 (Approximate), Expires: 01/24/2023 [facility] Work Phone: Comment on above: Expected: 11/24/2022 (Approximate), Expi res: 01/24/2023 Start: 11-24-2022 End: 01-24-2023 Thyrotropin [Units/volume] in Serum or Plasma TSH BLD Lab Routine Hypothyroidism, unspecified type Expected: 11/24/2022 (Approximate), Expires: 01/24/2023 [facility] Work Phone: Comment on above: Expected: 11/24/2022 (Approximate), Expi res: 01/24/2023 Start: 11-23-2022 3 comp foot exam completed DIABETIC FOOT EXAM [facility] Start: 11-23-2022 ANNUAL PCP TEAM CHRONIC DISEASE VISIT ANNUAL PCP TEAM CHRONIC DISEASE VISIT [facility] Start: 11-23-2022 Diabetic foot examination Diabetic Foot Exam [facility] Start: 11-20-2022 Hepatitis B screening URINE ALBUMIN:CREATININE RATIO [facility] Start: 11-20-2022 Hepatitis B surface antibody level LDL CHOLESTEROL [facility] Start: 11-20-2022 SERUM CREATININE SERUM CREATININE [facility] Start: 11-16-2022 Hemoglobin A1c/Hemoglobin.total in Blood HBA1C [facility] Start: 11-11-2022 Influenza vaccination INFLUENZA (#1) [facility] Comment on above: Postponed from 01/13/2022 (Declined at t his time) Start: 05-26-2022 End: 07-26-2022 CBC panel - Blood by Automated count CBC Lab Routine Essential hypertension, benign Stage 3b chronic kidney disease (HCC) Expected: 05/26/2022 (Approximate), Expires: 07/26/2022 [facility] Work Phone: Comment on above: Expected: [...] disease (HCC) Expected: 05/26/2022 (Approximate), Expires: 07/26/2022 [facility] Work Phone: Comment on above: Expected: 05/26/2022 (Approximate), Expi res: 07/26/2022 Start: 05-26-2022 End: 07-26-2022 Hemoglobin A1c in Blood HGB A1C Lab Routine Type 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, unspecified CKD stage, unspecified whether fci insulin use (HCC) Expected: 05/26/2022 (Approximate), Expires: 07/26/2022 [facility] Work Phone: Comment on above: Expected: 05/26/2022 (Approximate), Expi res: 07/26/2022 Start: 05-26-2022 End: 07-26-2022 Lipid 1996 panel - Serum or Plasma LIPID PANEL BASIC Lab Routine Essential hypertension, benign Hyperlipidemia, unspecified hyperlipidemia type Expected: 05/26/2022 (Approximate), Expires: 07/26/2022 [facility] Work Phone: Comment on above: Expected: 05/26/2022 (Approximate), Expi res: 07/26/2022 Start: 05-26-2022 End: 07-26-2022 Thyrotropin [Units/volume] in Serum or Plasma TSH BLD Lab Routine Hypothyroidism, unspecified type Expected: 05/26/2022 (Approximate), Expires: 07/26/2022 [facility] Work Phone: Comment on above: Expected: 05/26/2022 (Approximate), Expi res: 07/26/2022 Start: 05-23-2022 Hemoglobin A1c/Hemoglobin.total in Blood HBA1C [facility] Start: 05-18-2022 ANNUAL PCP TEAM CHRONIC DISEASE VISIT ANNUAL PCP TEAM CHRONIC DISEASE VISIT [facility] Start: 05-17-2022 Hepatitis B surface antibody level LDL CHOLESTEROL [facility] Start: 05-17-2022 SERUM CREATININE SERUM CREATININE [facility] Start: 05-15-2022 ADVANCE DIRECTIVE DISCUSSION ADVANCE DIRECTIVE DISCUSSION [facility] Start: 01-13-2022 Influenza vaccination [facility] Start: 01-11-2022 Hepatitis C antibody, confirmatory test DILATED RETINAL EXAM [facility] Start: 11-14-2021 Hemoglobin A1c/Hemoglobin.total in Blood HBA1C [facility] Start: 11-06-2021 Screening for malignant neoplasm of breast [facility] Start: 11-05-2021 3 comp foot exam completed DIABETIC FOOT EXAM [facility] Start: 11-05-2021 Adult depression screening assessment DEPRESSION SCREENING [facility] Start: 11-04-2021 Hepatitis B screening URINE ALBUMIN:CREATININE RATIO [facility] Start: 10-15-2021 Hepa vaccine adult dose for intramuscular use HEPATITIS A VACCINE ADULT IM Immunization/Injection Routine Need for vaccination Expected: 10/15/2021 [facility] Work Phone: Comment on above: Expected: 10/15/2021 Start: 10-15-2021 Tdap vaccine 7 yrs/> im TDAP VACCINE AGE 7+ IM Immunization/Injection Routine Need for vaccination Expected: 10/15/2021 [facility] Work Phone: Comment on above: Expected: 10/15/2021 Start: 05-15-2021 ADVANCE DIRECTIVE DISCUSSION ADVANCE DIRECTIVE DISCUSSION [facility] Start: 05-15-2021 DEPRESSION ASSESSMENT DEPRESSION ASSESSMENT [facility] Start: 10-23-2020 PNEUMOCOCCAL: 65+ (2 - PPSV23 if available, else PCV20) PNEUMOCOCCAL: 65+ (2 - PPSV23 if available, else PCV20) [facility] Start: 10-23-2020 PNEUMOCOCCAL: 65+ (2 - PPSV23 or PCV20) PNEUMOCOCCAL: 65+ (2 - PPSV23 or PCV20) [facility] Start: 10-16-2020 HEMOGLOBIN/HEMATOCRIT HEMOGLOBIN/HEMATOCRIT [facility] Start: 09-17-2020 COVID-19 VACCINE (2 - Booster for Alyssa series) COVID-19 VACCINE (2 - Booster for Alyssa series) [facility] Start: 12-19-2019 Pneumococcal vaccination [facility] Start: 12-19-2019 Pneumococcal Vaccine: 65+ (2 - PPSV23 or PCV20) Pneumococcal Vaccine: 65+ (2 - PPSV23 or PCV20) [facility] Start: 12-19-2019 PNEUMOCOCCAL: 65+ (2 - PPSV23 or PCV20) PNEUMOCOCCAL: 65+ (2 - PPSV23 or PCV20) [facility] Start: 11-08-2019 Screening for malignant neoplasm of colon [facility] Start: 10-26-2019 [facility] Start: 01-13-2019 Influenza vaccination Flu vaccine (#1) [place], [place] Start: 12-23-2018 Annual Wellness Visit (AWV) Annual Wellness Visit (AWV) [place] Start: 2009 DEXA (modify frequency per FRAX score) DEXA (modify frequency per FRAX score) [place] Start: 2009 Pneumococcal 65+ years Vaccine (1 of 1 - PPSV23) Pneumococcal 65+ years Vaccine (1 of 1 - PPSV23) [place] Start: 2009 Pneumococcal 65+ years Vaccine (1 of 2 - PCV13) Pneumococcal 65+ years Vaccine (1 of 2 - PCV13) [place] Start: 10-26-2007 Annual Wellness Visit (AWV) Annual Wellness Visit (AWV) [place] Start: 2004 Hepatitis B Vaccine (1 of 3 - Risk 3-dose series) Hepatitis B Vaccine (1 of 3 - Risk 3-dose series) [facility] Start: 2004 RSV Vaccine (1 - 1-dose 60+ series) RSV Vaccine (1 - 1-dose 60+ series) [facility] Start: 10-26-1999 Screening for osteoporosis DEXA (modify frequency per FRAX score) [place], [place] Start: 1994 Breast cancer screen Breast cancer screen [place], [place] Start: 1994 Colon cancer screen colonoscopy Colon cancer screen colonoscopy [place] Start: 1994 Screening for malignant neoplasm of breast Breast cancer screen [place], [place] Start: 1994 Screening for malignant neoplasm of colon Colon cancer screen colonoscopy [place] Start: 1994 Shingles Vaccine (1 of 2) Shingles Vaccine (1 of 2) [place] Start: 1984 Lipid screen Lipid screen [place] Start: 1965 Screening for malignant neoplasm of cervix [facility] Start: 10-26-1963 DTaP/Tdap/Td vaccine (1 - Tdap) DTaP/Tdap/Td vaccine (1 - Tdap) [place] Start: 10-26-1963 Third diphtheria, tetanus and acellular pertussis (DTaP) vaccination [facility] Start: 10-26-1963 Urine microalbumin profile [facility] Start: 1962 BP CONTROLLED (<130/80) BP CONTROLLED (<130/80) [facility] Start: 1962 HEPATITIS C SCREENING HEPATITIS C SCREENING [facility] Start: 1954 Lipid panel Lipid screen [place], [place] Start: 1944 Creatinine measurement Creatinine monitoring [place], [place] Start: 1944 Creatinine monitoring Creatinine monitoring [place], [place] Start: 1944 Hepatitis C screen Hepatitis C screen [place], [place] Start: 1944 Hepatitis C screening [facility] Start: 1944 Potassium monitoring Potassium monitoring [place], [place] Start: 1944 Screening for osteoporosis [facility] Start: 1944 Tetanus vaccination [facility] End: 01-09-2019 Blood glucose - POCT Blood glucose - POCT Point of Care Testing Routine One Time for 1 Occurrences starting 01/09/2019 until 01/09/2019 [place] Comment on above: One Time for 1 Occurrences starting 12/14 until 01/09/2019 ECG COMPLETE [facility] Comment on above: Ordered: 05/31/2024 End: 05-31-2025 Echocardiography ECHO Cardiology Routine Atrial fibrillation, unspecified type (HCC) 1 Occurrences starting 05/31/2024 until 05/31/2025 [facility] Comment on above: 1 Occurrences starting 05/31/2024 until 05/31/2025 Patient referral [facility] Work Phone: End: 01-09-2019 Pulse Oximetry Spot Check Pulse Oximetry Spot Check Respiratory Care Routine One Time for 1 Occurrences starting 01/09/2019 until 01/09/2019 [place] Comment on above: One Time for 1 Occurrences starting 12/14 until 01/09/2019 End: 08-02-2024 PV FLUOROSCOPY OR [facility] End: 08-02-2024 [facility] [place] [facility] Immunizations Immunization Date Immunization Notes Care Provider Paramjit hassan 07-23-2020 SARS-CoV-2 (COVID-19 ) Ad26 vaccine, recombinant SILVINO SCHEBEULAH DO Tyler Garcia Comment on above: Result Comment: 2024: [id number] 02-27-2020 influenza, high dose seasonal, preservative-free Kameron Caruso MD Work Phone: [facility] 02-27-2020 influenza virus vaccine, unspecified formulation Kameron Caruso MD Work Phone: [facility] 10-24-2019 pneumococcal conjuga te vaccine, 13 valent Kameron Caruso MD Work Phone: [facility] 10-24-2019 zoster vaccine recombinant Kameron Caruso MD Work Phone: [facility] 07-25-2019 influenza virus vaccine, unspecified formulation SILVINO HA DO [facility] 07-25-2019 influenza, seasonal, injectable Kameron Caruso MD Work Phone: [facility] 07-25-2019 zoster vaccine recombinant Kameron Caruso MD Work Phone: [facility] 04-13-2015 influenza virus vaccine, unspecified formulation SILVINO SCHEATZSHITAL DO [facility] 05-01-2014 influenza virus vaccine, unspecified formulation SILVINO SCHEATZSHITAL DO [facility] 05-01-2014 influenza, high dose seasonal, preservative-free Kameron Caruso MD Work Phone: [facility] 02-22-2012 influenza virus vaccine, unspecified formulation Kameron Caruso MD Work Phone: [facility] Work Phone: 03-19-2007 influenza virus vaccine, unspecified formulation Kameron Caruso MD Work Phone: [facility] Work Phone: Payers Date Payer Category Payer Medicare [id number] 2024 Unknown [id number] 2024 Self-pay 2018 Medicare [employer] ADVANTAGE [employer]ARE ADVANTAGE xxxxxxxxxxx 2018-Present [phone] [address] [place] [address] xxxxxxxxxxx [id number] 2018 Unknown [id number] 2013 Medicare [place] [id number] 2013-Present [phone] [address] [place] [address] O [id number] 2013 Medicare [id number] 2013 Medicare (Managed Care) 1.2. [id number] 2013 Medicare [id number] 1944 Unknown [id number] 2.840.1.847687.3.579.2 .627 1944 Unknown [id number] 2.840.1.859234.3.579.2 .732 1944 Unknown [id number] 2.840.1.409460.3.579.2 .627 1944 Unknown [id number] 2.0.1.757447.3.579.2 .594 1944 Unknown [id number] .840.1.002315.3.579.2 .594 Unknown [id number] 2.16840.1.588197.3.579.2 .462 Unknown [id number] 2.16840.1.868171.3.579.2 .462 Unknown [id number] 2.16840.1.868321.3.579.2 .462 Unknown [id number] 2.16840.1.178902.3.579.2 .462 Unknown [id number] 2.16.840.1.461261.3.579.2 .462 Unknown [id number] 2.16.840.1.174094.3.579.2 .462 Unknown [id number] 2.16.840.1.780260.3.579.2 .462 Unknown [id number] 2.16.840.1.518360.3.579.2 .462 Unknown [id number] 2.16.840.1.405561.3.579.2 .462 Unknown [id number] 2.16.840.1.540607.3.579.2 .462 Unknown [id number] 2.16.840.1.243153.3.579.2 .462 Unknown [id number] 2.16.840.1.870170.3.579.2 .462 Unknown [id number] 2.16.840.1.922795.3.579.2 .462 Unknown [id number] 2.16.840.1.611587.3.579.2 .462 Unknown [id number] 2.16.840.1.221845.3.579.2 .462 Unknown [id number] 2.16.840.1.315574.3.579.2 .462 Unknown [id number] 2.16.840.1.488835.3.579.2 .462 Unknown [id number] 2.16.840.1.808927.3.579.2 .462 Unknown [id number] 2.16.840.1.020293.3.579.2 .462 Unknown [id number] 2.16.840.1.482458.3.579.2 .462 Unknown [id number] 2.16.840.1.380872.3.579.2 .462 Unknown [id number] 2.16.840.1.685243.3.579.2 .462 Unknown [id number] 2.16.840.1.395351.3.579.2 .462 Unknown [id number] 2.16.840.1.900893.3.579.2 .462 Unknown [id number] 2.16.840.1.807085.3.579.2 .462 Unknown [id number] 2.16.840.1.607743.3.579.2 .462 Unknown [id number] 2.16.840.1.983149.3.579.2 .462 Unknown [id number] 2.16.840.1.037266.3.579.2 .462 Unknown [id number] 2.16.840.1.351438.3.579.2 .462 Unknown [id number] 2.16.840.1.950378.3.579.2 .462 Unknown [id number] 2.16.840.1.758859.3.579.2 .462 Unknown [id number] 2.16.840.1.503706.3.579.2 .462 Unknown [id number] 2.16.840.1.175791.3.579.2 .462 Unknown [id number] 2.16.840.1.879841.3.579.2 .462 Unknown [id number] 2.16.840.1.046902.3.579.2 .462 Social History Date Type Detail Facility Start: 01-09-2019 End: 08-02-2024 Tobacco smoking status [facility] Never smoker [facility] Start: 01-09-2019 End: 11-25-2022 Alcohol intake Never [facility] Work Phone: Start: 12-24-2018 History SDOH Alcohol Frequency 1 [place], [place] Start: 1945 Sex Assigned At Not on file [place] Start: 10-16-2019 Alcohol intake Lifetime non-d hortencia (finding) [place] Exposure to SARS-CoV -2 (event) Unable to assess [place] Start: 05-18-2021 End: 06-26-2024 Alcohol intake Current non-drinker of alcohol (finding) [facility] Start: 11-13-2021 End: 03-02-2022 Exposure to SARS-CoV-2 (event) Not sure [facility] Start: 02-02-2011 End: 03-02-2022 Tobacco use and exposure Smokeless tobacco non-user [facility] Start: 11-25-2022 End: 11-28-2023 History of Social function [facility] Work Phone: Adult Depression Screening Assessment 0 [facility] Work Phone: Start: 06-22-2005 End: 08-02-2024 Sex Female (finding) [facility] Start: 1945 Sex Assigned At Female [facility] Sexual Orientation Tyler Mohsen [facility] Medical Equipment Procedure Code Equipment Code Equipment Original Text Equipment Identifier Dates [id number], [id number], [id number] Start: 11-30-2020 End: 04-08-2023 Comment on above: [...] Facility 09-09-2024 Functional Status Room check performed [facility] 09-09-2024 Functional Status [facility] 09-09-2024 Functional Status Skin Care Prev entative Intervention(s) heel(s)s elevated [facility] 09-08-2024 Functional Status [facility] 09-08-2024 Functional Status [facility] 09-06-2024 Functional Status 11pm-7am [facility] 09-06-2024 Functional Status Antiembolism S tocking On/Re-applied bilateral knee high [facility] 09-05-2024 Functional Status Oral Care Maximum wilfred tance [facility] 09-05-2024 Functional Status [facility] 09-05-2024 Functional Status Done [facility] 09-04-2024 Functional Status [facility] 09-04-2024 Functional Status [facility] 09-03-2024 Functional Status NPO Status Maintained A kai [place] 09-03-2024 Functional Status None [facility] 09-03-2024 Functional Status [facility] 08-29-2024 Functional Status Tyler [facility] 08-29-2024 Functional Status Tyler [facility] 08-27-2024 Functional Status Orthotics, Dev ice Worn Per Schedule Yes [facility] 08-27-2024 Functional Status Tyler [facility] 08-26-2024 Functional Status Tyler [facility] 08-23-2024 Functional Status [facility] 08-23-2024 Functional Status Breakfast Percent 25 [facility] 08-20-2024 Functional Status Tyler [facility] 08-19-2024 Functional Status Tyler [facility] 08-16-2024 Functional Status Single level h ome, basement laundry [facility] 08-16-2024 Functional Status Outside Stairs Rail Rail on left going up [facility] 08-15-2024 Functional Status Sensory Defici ts Speech deficit [facility] 10-14-2014 Are you deaf, or do you have serious difficulty hearing No [facility] 10-14-2014 Are you blind, or do you have serious difficulty seeing, even when wearing glasses No [facility] 10-14-2014 Do you have serious difficulty walking or climbing stairs No [facility] 10-14-2014 Do you have difficul ty dressing or bathing No [facility] 10-14-2014 Because of a physica l, mental, or emotional condition, do you have difficulty doing errands alone such as visiting a physician's office or shopping No [facility] Mental Status Date Assessment Result Facility 09-09-2024 Mental Status Does not interact [facility] quirozlagregory 09-08-2024 Mental Status Tyler jenkins 09-08-2024 Mental Status Tyler jenkins 08-02-2024 Cognitive function Awake;Alert;F ollows Commands [facility] Work Phone: 10-14-2014 Because of a physica l, mental, or emotional condition, do you have serious difficulty concentrating, remembering, or making decisions No [facility] Clinical Notes 11-03-2020 to 10-02-2024 Note Date & Type Note Facility 10-02-2024 Evaluation note Diagnosis Onset Date Resolution Acute ischemic right MCA stroke acute October 02, 2024 9:29am Essential hypertension acute Ma 2024 9:29am Hyperlipidemia acute October 02, 2024 9:29am Paroxysmal atrial fibrillation with RVR acute October 02, 2024 9:29am [facility] Work Phone: 1(355) 940-863204-28-2025 Note Discharge Instructions Thank you for allowing [...] KAMERON CARUSO MD When:Within 3-7 days Where:[address] [place] [address]- Additional Information: Please schedule follow up PCP appointment for after discharge from SNF, Bring discharge instructions with you Follow Up with RIMMA POWERS MD When:10/08/2024 04:00 PM EDT Where:[facility] ([address], [place]) Additional Information: Neurosurgeon The Following Activity and [...] standard right Seat cushion, 99 month(s), Tyler [id number], 09/02/24 8:22:00 EDT Transfer of Care Wound [...] depending on your insurance coverage. Check with yourVoiceBunny company about what is covered. Keeping follow-up [...] 08/04/2017 Document Revised: 05/04/2018 Document Reviewed: 08/04/2017 [employer] Patient Education 2020 [employer]. Additional Information VACCINATE! IT SAVES LIVES! Members of the community who have not yet received the COVID-19 vaccine and would like to receive it can visit one of [facility] vaccine clinics. There are many vaccine clinic locations within the [facility]. For locations and available times, please visit [email or web address].[place].gov/. It is important to note that some COVID mobile vaccine clinics are held outdoors and may be canceled in rainy or stormy conditions. To learn more about pediatric vaccinations (ages 5-11), we invite you to visit the [employer] webpage. https://www.[employer].org/pages/1980-Xyegc-Uwwbxhyykpj-Bpuqtnrwyd-Kjuku-Htv stions.htmlTo learn more about the COVID-19 vaccine, we invite you to visit the CDC website for a list of frequently asked questions.https://www.cdc.gov/coronavirus/2019-ncov/vaccines/faq.html [facility] Patient Portal Access Instructions: Stay connected with your healthcare team and access your personal medical information anytime with the [employer] Patient Portal. Please follow the directions below to create your [employer] account: 1.Access the email account you provided upon registration to the hospital/physician office.2.Look for an invitation email from [facility].3.Open the email and access the invitation link: AcceptInvitation to [facility].4.Fill in the required richards to create your account. To access your account, visit [email or web address]. Click the blue button labeled "Access Patient [...] who you will allowto register on the [facility] [employer] Patient Portal for access to your information. You can also access the [facility] [employer] Patient Portal on the [facility] dahlia. Simply click on "Patient Portal" and then log into your account. If you would like to receive a full copy of your medical records, please contact the [facility] Medical Records Department by calling [phone], Monday through Monday between 8 a.m. and [...] Call your local pharmacy or go to [email or web address] to find one close to you.3.Make use of household items: Use cat litter or old coffee grounds to dispose medications if other options arenot available. Mix your drugs with these household products, seal them in an airtight container andthrow it into the garbage. Call [facility]: [phone] to be sure your drugs can be [...] aware that I should contact my doctor. Patient/Section Leader Signature: Date/Time: Relationship to Patient: Witness Name/Signature: Date/Time: Tyler [id number] Note Discharge Instructions Thank you for allowing [...] KAMERON CARUSO MD When:Within 3-7 days Where:[address] [place] [address]- Additional Information: Please schedule follow up PCP appointment for after discharge from SNF, Bring discharge instructions with you Follow Up with RIMMA POWERS MD When:10/08/2024 04:00 PM EDT Where:[facility] ([address], [place]) Additional Information: Neurosurgeon The Following Activity and [...] standard right Seat cushion, 99 month(s), Tyler [id number], 09/02/24 8:22:00 EDT Transfer of Care Wound [...] depending on your insurance coverage. Check with yourVoice[employer]unny company about what is covered. Keeping follow-up [...] 08/04/2017 Document Revised: 05/04/2018 Document Reviewed: 08/04/2017 Quosis Patient Education 2020 [employer]. Additional Information VACCINATE! IT SAVES LIVES! Members of the community who have not yet received the COVID-19 vaccine and would like to receive it can visit one of [facility] vaccine clinics. There are many vaccine clinic locations within the [facility]. For locations and available times, please visit https://[email or web address].[place].gov/. It is important to note that some COVID mobile vaccine clinics are held outdoors and may be canceled in rainy or stormy conditions. To learn more about pediatric vaccinations (ages 5-11), we invite you to visit the [facility] webpage. https://www.[facility].org/pages/5383-Arngh-Payidecvcrj-Gyjdinzjax-Gibig-Msz stions.htmlTo learn more about the COVID-19 vaccine, we invite you to visit the CDC website for a list of frequently asked questions.https://www.cdc.gov/coronavirus/2019-ncov/vaccines/faq.html [facility] Patient Portal Access Instructions: Stay connected with your healthcare team and access your personal medical information anytime with the [employer] Patient Portal. Please follow the directions below to create your [employer] account: 1.Access the email account you provided upon registration to the hospital/physician office.2.Look for an invitation email from [facility].3.Open the email and access the invitation link: AcceptInvitation to [facility].4.Fill in the required richards to create your account. To access your account, visit [email or web address]. Click the blue button labeled "Access Patient [...] who you will allowto register on the [facility] [employer] Patient Portal for access to your information. You can also access the [facility] [employer] Patient Portal on the [facility] dahlia. Simply click on "Patient Portal" and then log into your account. If you would like to receive a full copy of your medical records, please contact the [facility] Medical Records Department by calling [phone], Monday through Monday between 8 a.m. and [...] Call your local pharmacy or go to [email or web address] to find one close to you.3.Make use of household items: Use cat litter or old coffee grounds to dispose medications if other options arenot available. Mix your drugs with these household products, seal them in an airtight container andthrow it into the garbage. Call [facility]: [phone] to be sure your drugs can be [...] been reviewed and explained to me and IARMAND JUNE L understand my current condition and have read and understand these discharge instructions. I have received a written copy of the plan/instructions. If I have questions, I am aware that I should contact my doctor. Patient/Section Leader Signature: Date/Time: Relationship to Patient: Witness Name/Signature: Date/Time: Tyler [id number] Physical medicine and rehab Discharge summary Date [...] in discharge valuation. She was admitted to [facility] from [facility] stay 08/02 [...] Ordered -- 08/15/24 17:18:00 EDT, AMI HEATON APRN-COLOR CONTROL SUPERVISOR, [employer] per policy Physical Exam Vitals [...] oral tablet)1 tab(s) PEG tube every day. acwpqafltmokz36 Microgram PEG tube once a day. metoprolol [...] KAMERON CARUSO MD When:Within 3-7 days Where:[address] [place] [address]- Additional Information: Please schedule follow up PCP appointment for after discharge from SNF, Bring discharge instructions with you Follow Up with RIMMA POWERS MD When:10/08/2024 04:00 PM EDT Where:[facility] ([address], [place]) Additional Information: Neurosurgeon Follow Up Appointments No qualifying data available. Follow Up Labs/Studies Discharge Labs No Follow-up Labs Discharge Studies No Follow-up Studies Discharge Diet No qualifying data available. Discharge Activity No qualifying data available. Condition on Discharge Stable Discharge Disposition long term facility Information Provided To Patient and family Time Spent Greater than 35 minutes Digitally Signed by SILVINO HA DO on 09/09/2024 01:46 PM Tyler [id number] Nurse Progress note Nursing GG Entered On: 09/09/2024 10:55 EDT Performed On: 09/09/2024 10:55 EDT by Abigail Rodas RN Nursing GG's OT GG Grid Eating : Not Completed Abigail Rodas RN - 09/09/2024 10:55 EDT Digitally Signed by Abigail Rodas RN on 09/09/2024 10:55 AM Tyler [id number] Nurse Progress note Nursing GG Entered On: 09/08/2024 17:39 EDT Performed On: 09/08/2024 17:39 EDT by Rob Alarcon RN Nursing GG's OT GG Grid Eating : Not Completed Oral Hygiene : Not Completed Toilet Hygiene : Substantial/Maximal Assistance Toilet Transfer : Substantial/Maximal Assistance Rob Alarcon RN - 09/08/2024 17:39 EDT Digitally Signed by Rob Alarcon RN on 09/08/2024 05:39 PM [facility] Nurse Progress note Pt had 250ml residual, 12:30pm bolus was held! Digitally Signed by Rob Alarcon RN on 09/08/2024 12:47 PM [facility]wv[facility]-0479 Physical medicine and rehab Progress note Rehab [...] candidate. She was then transferred to a [facility] for further management. CT of head [...] Rate64(SEP 05 16:46)64(SEP 05 16:46)85(SEP 05 09:40) DYI424(SEP 05 16:36)138(SEP 05 16:36)H 158(SEP 05 09:52) [...] HA DO on 09/06/2024 12:34 PM Tyler [id number] Hospital Discharge instructions Patient Education 09/05/2024 14:15:00 [...] depending on your insurance coverage. Check with yourVoiceBunny company about what is covered. Keeping follow-up [...] 08/04/2017 Document Revised: 05/04/2018 Document Reviewed: 08/04/2017 Quosis Patient Education 2020 [employer]. Follow Up Care 08/15/2024 08:51:25 With:RIMMA POWERS MD Address: [facility] ([address], [place]) When:10/08/2024 16:00:00 Comments:Neurosurgeon With:JONNIE BANSAL MD Address: [facility] When: Unknown Comments:GI, No appointment needed until PEG is ready to be removed or concerns arise With:KAMERON CARUSO MD Address: [address] [place] [address]- When:3-7 days Comments:Please schedule follow up PCP [...] less than 3 seconds. Ongoing hemiparesis VITALS PonpxyOuruXDOlzphVSTwO6WLG1DozdNg(kg) 09/05 09:5236.3--584724DA 09/05 09:40----85----RA 09/04 23:3236.6--497166BL 09/04 21:2436.5--477058VB 09/04 16:01----72----RA 24 Hr Tmax: 36.6 at [...] tab(s), PEG, Daily, 08/15/24 17:09:00 EDT balsam Vulcan-castor oil topical (Venelex 788 mg-87 mg/g topical [...] SBP (mmHg) < 110, 1st dose location: [facility], 1, 08/15/24 17:09:00 EDT Active [...] 2 minutes, REPEAT x1., 1st dose location: [facility], 0, 08/15/24 1... glucose (Dextrose [...] None Problems (6) CVA (cerebral vascular accident) (408884283) Diabetes mellitus (578295763) Dysphagia (61979095) Hyperlipidemia (63620122) Hypertension (1815834726) Osteoarthritis (6178615623) ASSESSMENT/PLAN: Right basal ganglia hemorrhage, status post [...] the services described in this documentation, as payalibedDestiny beach RN in my presence and it is both accurate and complete. Digitally Signed by CATHERINE NEWMAN on 09/05/2024 04:55 PM Tyler [id number] Physical medicine and rehab Progress note Subjective [...] area Neuro: Left upper extremity hemiparesis VITALS DrxcwoMeoaRKOrnkbJEKjZ6LMR1XqyfDi(kg) 09/04 23:3236.6--819618HT 09/04 21:2436.5--884529EO 09/04 16:01----72----RA 09/04 12:10--------97RA 09/04 10:5435.9--120725IS 24 Hr Tmax: 36.6 at 09/04 23:32 [...] SBP (mmHg) < 110, 1st dose location: [facility], 1, 08/15/24 17:09:00 EDT Active PRN Meds: [...] None Problems (6) CVA (cerebral vascular accident) (214143072) Diabetes mellitus (289282590) Dysphagia (30482800) Hyperlipidemia (28903120) Hypertension (9649872581) Osteoarthritis (2743021286) ASSESSMENT/PLAN: Acute right basal ganglia hemorrhage with [...] sugars closely. [facility] in [facility] with ice [...] HUTTON DO on 09/05/2024 10:12 AM Tyler [id number] Physical medicine and rehab Progress note Rehab [...] candidate. She was then transferred to a [facility] for further management. CT of head [...] Rate64(SEP 03 15:52)64(SEP 03 15:52)90(SEP 03 08:28) AYP384(SEP 04 05:38)112(SEP 04 05:38)127(SEP 03 08:00) DBP70(SEP [...] HA DO on 09/04/2024 11:55 AM Tyler GarciaBwjxqajx41-61-7718 Note Subjective Patient states she is doing [...] area Neuro: Left upper extremity hemiparesis VITALS SitdnhUtlzSXVhyfoMUXrZ4HJI5GnqpKh(kg) 09/03 21:4136.4--969389OV 09/03 15:52----64----RA 09/03 08:46 RA 09/03 08:28----90---- 09/03 08:0036.4--453498RL 24 Hr Tmax: 36.4 at 09/03 21:41 [...] None Problems (6) CVA (cerebral vascular accident) (036681444) Diabetes mellitus (274134407) Dysphagia (27503030) Hyperlipidemia (78124081) Hypertension (2455804281) Osteoarthritis (3409781138) ASSESSMENT/PLAN: Acute right basal ganglia hemorrhage with [...] NANDO HUTTON DO on 09/05/2024 08:57 AM [facility]ps[facility]bn97-[facility]-7500 Note Subjective Patient states that she is [...] area Neuro: Left upper extremity hemiparesis VITALS RxawysVrpoQXVhqhcFHTuI9UVA7UlckUu(kg) 09/03 00:2636.3--863190OX 09/02 21:5136.2--018497RW 09/02 16:56----88--98RA 09/02 10:40 RA 09/02 09:0936.0--668189QE 24 Hr Tmax: 37.0 at 09/02 05:55 [...] tab(s), PEG, Daily, 08/15/24 17:09:00 EDT balsam Vulcan-castor oil topical (Venelex 788 mg-87 mg/g topical [...] SBP (mmHg) < 110, 1st dose location: [facility], 1, 08/15/24 17:09:00 EDT oxybutynin (oxybutynin [...] 2 minutes, REPEAT x1., 1st dose location: [facility], 0, 08/15/24 1... glucose (Dextrose [...] None Problems (6) CVA (cerebral vascular accident) (589374113) Diabetes mellitus (571225681) Dysphagia (11730390) Hyperlipidemia (05308040) Hypertension (9198307805) Osteoarthritis (6952807097) ASSESSMENT/PLAN: Acute right basal ganglia hemorrhage with [...] HUTTON DO on 09/05/2024 08:57 AM Tyler [id number] Note* Exam Date Time Procedure Performing Provider Status 09/02/24 2:[address] Head or Brain w/o Contrast Brenda MCCLELLAN MD; Auth (Verified) [id number] ORIGINAL HISTORY: Lethargy COMPARISON: No TECHNIQUE: Routine [...] Nando Mcclellan MD Electronically signed By Nando Mccllelan MD Dictated Date: 09/02/2024 3:03:15 PM Prelim Date: 09/02/2024 3:10:44 PM Sign Date: 09/02/2024 3:10:44 PM Ordering Provider: SILVINO Garcia04-18-2025 Telephone encounter Note* Telephone Encounter - Fouzia Miller LPN - 08/30/2024 10:09 AM EDT Marya with [facility] notified. [facility]04-18-2025 Miscellaneous Notes* Telephone Encounter - Fouzia Miller LPN - 08/30/2024 10:09 AM EDT Marya with [facility] notified. * Telephone Encounter - Mj Glover APRN.CNP - 08/30/2024 9:19 AM EDT Please let HH know that Dr. Caruso's team will follow HH orders. Okay to proceed. Mj Glover APRN.CNP * Telephone Encounter - Jaiden Paulino RN - 08/30/2024 9:07 AM EDT Marya- [facility] reports patient was in [facility] with dx: stroke[facility] Pt will be discharged from [facility] on 09/07/24 to home with [facility] SN PT OT [facility] & [facility]ide. Asking if pcp agreeable to follow for C. Please phone Marya with verbal: [phone] documented in [facility] [place] Telephone encounter Note * Telephone Encounter - Mj Glover APRN.CNP - 08/30/2024 9:19 AM EDT Please let know that Dr. Caruso's team will follow HH orders. Okay to proceed. Mj Glover APRN.GARRETT [facility]04-18-2025 Telephone encounter Note* Telephone Encounter - Jaiden Paulino RN - 08/30/2024 9:07 AM EDT [facility] reports patient was in [facility] with dx: stroke, and transferred to [facility]. [facility] to home with [facility] SN PT OT ST & [facility]ide. Asking if pcp agreeable to follow for HHC. Please phone Marya with verbal: [phone] [facility]04-14-2025 Note REFERRING PHYSICIAN: Silvino Ha DO. CONSULTING PSYCHOLOGIST: Matthew Gibson, PhD. REASON FOR REFERRAL: Neuropsychological exam. HISTORY OF PRESENT ILLNESS: Ms. Acuna is a 78-year-old right-handed white female admitted to [facility] from [facility] on 08/15/2024 after developing left-sided weakness [...] mild concussions suffered after a career in [employer]. No residual deficits reported. No other SPA DIRECTOR/FINANCE injuries or illnesses. MENTAL HEALTH HISTORY: No [...] of NPO. and Mrs. Acuna live in [place]. 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 She has a high school diploma from her hometown in [place], [place]. TEST RESULTS: I used the Cognistat, [...] be determined. MATTHEW GIBSON, PhD GM/NTS JOB#: [id number] DICTATION ID#: [id number] Digitally Signed by MATTHEW GIBSON PhD on 08/27/2024 08:21 AM [facility]wtwwqmy45-51-5690 Note* Exam Date Time Procedure Performing Provider Status 08/25/24 1:46 PM XR Hand and Wrist 6 Views Left Buck DUNNE DO; Auth (Verified) [id number] ORIGINAL EXAMINATION: 3 XRAY VIEWS OF THE [...] Views Left JAMAR DUNNE DO; Auth (Verified) [id number] ORIGINAL EXAMINATION: TWO XRAY VIEWS OF THE [...] Views Left JAMAR DUNNE DO; Auth (Verified) [id number] ORIGINAL EXAMINATION: TWO XRAY VIEWS OF THE [...] 1 View Contributor_system, FUJ I; Auth (Verified) [id number] ORIGINAL EXAMINATION: ONE XRAY VIEW OF THE [...] Plan noteExtracted from: Title:Clinical Document Author:EZEQUIEL HUSTON RN-COLOR CONTROL SUPERVISOR Date:08/16/24 Acute Inpatient Rehab Histor y and Physical Date of Service: 08/16/2024 Date of Admission: 08/15/2024 Attending Physician: Dr. Ha Impairment Group 1.1 left body involvement, right brain stroke Etiologic Diagnosis Hemorrhagic infarct involving right basal ganglia, mass effect with effacement of right lateral ventricle, tiny infarct in right cerebellum History of Present Illness 78-year-old female noted to home in inpatient rehab from [facility] stay 08/02 - 08/15 who is [...] candidate. She was then transferred to a [facility] for further management. CT of head [...] feedings. Patient deemed medically stable transferred to [facility] for physical and occupational [...] with spouse, first- floor set up. Primary Branch Officer: Self. Safe place to go: Yes. Lives [...] Rate80(AUG 15 20:06)80(AUG 15 20:06)80(AUG 15 20:06) KAV778(AUG 16 00:03)128(AUG 16 00:03)140(AUG 15 17:47) DBP76(AUG 16 00:03)76(AUG 16 00:03)80(AUG 15 17:47) 36hr Labs 08/15 1805 Blood Glucose, Roizybtqi250A Blood Glucose, Cvsvibuac446T Blood Glucose TSee Flowsheet Assessment/Plan Debility and [...] and it is both accurate and complete. [facility] 04-04-2025 Physical medicine and rehab Consult note INPATIENT REHAB MEDICAL CONSULT DATE OF ADMISSION: 08/16/2024 CC: Acute right basal hemorrhage HISTORY OF PRESENT ILLNESS: This is a 78-year-old female admitted to [facility] from [facility] stay 08/02 [...] was deemed medically stable and transferred to [facility] for physical and occasional [...] Rate80(AUG 15 20:06)80(AUG 15 20:06)80(AUG 15 20:06) DEV322(AUG 16 00:03)128(AUG 16 00:03)140(AUG 15 17:47) DBP76(AUG [...] mL, PEG, qDay REVIEW OF LABS, DIAGNOSTICS [facility] labs and diagnostics reviewed. 36hr Labs 08/15 1805 Blood Glucose, Kzcwqwfsl564L Blood Glucose, Rktpbnjvb900O Blood Glucose TSee Flowsheet ASSESSMENT AND PLAN: [...] will follow during acute rehabilitation [facility] at [facility] with the goal of [...] by CATHERINE NEWMAN on 08/17/2024 04:53 PM [facility] HamiltonDlitemoc21-88-2230 Physical medicine and rehab History and physical [...] noted to home in inpatient rehab from [facility] stay 08/02 -08/15 who is past [...] candidate. [facility] showed [...] feedings. Patient deemed medically stable transferred to [facility] for physical and occupational [...] with spouse, first- floor set up. Primary Branch Officer: Self. Safe place to go: Yes. Lives [...] Rate80(AUG 15 20:06)80(AUG 15 20:06)80(AUG 15 20:06) QYZ949(AUG 16 00:03)128(AUG 16 00:03)140(AUG 15 17:47) DBP76(AUG 16 00:03)76(AUG 16 00:03)80(AUG 15 17:47) 36hr Labs 08/15 1805 Blood Glucose, Xhlqdfvjc174O Blood Glucose, Dxascgrlc114D Blood Glucose TSee Flowsheet Assessment/Plan Debility and [...] by EZEQUIEL HUSTON on 08/22/2024 05:17 AM [facility] DaytonUeuborph94-85-9833 Miscellaneous Notes* Nursing Notes - Robson Steel [...] pacing over x3-5 sessions Outcome: Ongoing Problem: STUDENT ACCOUNTS MANAGER - Cognition Goal: Orientation Log - [...] Ongoing * Plan of Care - Teagan Cronni OT - 08/14/2024 9:45 AM EDT Problem: [...] pacing over x3-5 sessions Outcome: Ongoing Problem: STUDENT ACCOUNTS MANAGER - Cognition Goal: Orientation Log - [...] for buried bumper syndrome. - If used intermodal 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, initial PEG should be changed in 6-12 months depending on tube condition. - No plans for repeat outpatient EGD at this time based on clinical status Jonnie Mccabe MD Division of Gastroenterology, Hepatology, and Nutrition Clinical Fellow PGY-4 Pager: [phone] * Plan of Care - Manisha Cheema [...] or what the specific medication was. DaughterKeagan [phone] would be able to answer questions. Catherine Barros RN * Plan of Care - RIIK Penaloza - 08/08/2024 1:10 PM EDT Problem: [...] 08/07/2024 5:00 PM EDT On admission to [facility], from another [facility] inpatient unit [...] oropharyngeal swallow function to most appropriately guide STUDENT ACCOUNTS MANAGER plan of care Outcome: Met Goal: [...] readiness for diet advancement Outcome: Met Problem: STUDENT ACCOUNTS MANAGER - Cognition Goal: Orientation Log - [...] better assess deficits and most appropriately guide STUDENT ACCOUNTS MANAGER plan of care Outcome: Met Goal: [...] of Care: 1. Diet: NPO. Advancement per team/STUDENT ACCOUNTS MANAGER recommendation 2. Ordered TF: Glucerna 1.5 [...] readiness for diet advancement Outcome: Ongoing Problem: STUDENT ACCOUNTS MANAGER - Cognition Goal: Orientation Log - [...] better assess deficits and most appropriately guide STUDENT ACCOUNTS MANAGER plan of care Outcome: Ongoing * Nursing Notes - Aniyah Torre RN - 08/02/2024 6:13 PM EDT On admission to [facility], from [place] a dual RN initial assessment of skin condition was performed by Aniyah Torre RN and Amirah ENRIQUEZ. Skin Assessment: Skin not within defined limits. - Pressure Injury suspected: Yes - Coccyx LDA Added:Yes Aniyah Torre RN * Nursing Notes - Sophie Jenkins RN - 08/02/2024 5:32 PM EDT Report given to [place] [facility] whom denies any questions. No change [...] under emergency consent. SURGEON(S): Prema Ramos MD MICROGRAPHICS SERVICES SUPERVISOR(S): None ANESTHESIA: Monitored anesthesia care DESCRIPTION OF [...] - 08/02/2024 3:26 PM EDT Lindsay Acuna ([id number]) PRE OPERATIVE DIAGNOSIS Cerebral infarction due to [...] - Primary ANESTHESIOLOGIST Anesthesiologist: Tameka Ruth MD FIRE BOSS: Bebo Barboza APRN-JA SURGICAL STAFF Aquatic Laborer: Rachell Ruffin RN [place]. Commissioner: Paulina Muñiz; Radha Morales COMPLICATIONS None ESTIMATED BLOOD LOSS Minimal SPECIMENS No specimen sent * No specimens in log * Prema Ramos MD August 02, 2024 3:26 PM [facility] History of Present illness Narrative* OWEN Benavides - 08/15/2024 9:01 AM EDT Care Management Discharge Note Selected Continued Care - Admitted Since 08/02/2024 Destination Coordination complete. Service Provider Services Address Phone Fax Patient Preferred [facility] Inpatient Rehabilitation [address] [place] [phone] -- -- Internal Comment last updated by OWEN Benavides 08/15/2024 0901 Report fax: [phone] Transport Request Mode of Transfer: [facility] Name of Discharge Transport Company: [employer] Discharge Transport ETA: 08/15/2024 @ 1030 Patient medically stable for discharge per physician/medical team. Pt has neurology appointment scheduled. Pt/ to schedule appointment with PCP. Patient/Section Leader remain in agreement withthe discharge plan. BULMARO Allen Employment Interviewer * OWEN Benavides - 08/14/2024 3:17 PM EDT Placement Plan Expected Discharge Date: 08/15/2024 Referred Level of Care: IPR Current Referrals and Status 1. [facility]-accepted IPR obtained precertification for Pt starting tomorrow. Pt is set-up to leave via ambulance tomorrow at 1030. CM updated Pt's by phone. IPR will provide CM with the best phone and fax numbersfor RN report tomorrow morning. BULMARO Allen Employment Interviewer * Marybeth Ayoub - 08/14/2024 2:51 PM EDT Care Management Progress Note Transportation for discharge arranged Mode of Transfer: (P) BLS Name of Discharge Transport Company: (P) [facility]charge [facility] ETA: (P) 08/15/2024 @ 1030 Pick-up from [facility] 1032/A Destination [facility] IPR [address] [facility] [id number] OWEN Morrell Employment Interviewer Unix Developer [phone] * Jazzy Aguiar - 08/14/2024 9:47 AM [...] position Mobility Assessment/Intervention: Supine to Sit Mobility [place] Level: Supine->Sit: moderate assist (50% patient effort) Physical Assist: Supine->Sit: 2 person assist Bed Features/Set-up: Supine->Sit: Head of bed elevated, Use of bed rail Skilled Rationale: Verbal cues, Tactile cues, Hand placement, Positioning, Technique of activity Skilled Intervention/Details: Supine->Sit: Cues for technique of transfer and pt needing increased assistance for managing legs and trunk to EOB positioning Transfer Assessment/Intervention: Sit to Stand Transfer [place] Level: Sit->Stand: moderate assist (50% patient effort) [...] hand held support Stand to Sit Transfer [place] Level: Stand->Sit: moderate assist (50% patient effort) Physical Assist: Stand->Sit: 2 person assist Assistive Device: Stand->Sit: gait belt, hand held assist Skilled Rationale: Verbal cues, Tactile cues, Hand placement, Positioning, Controlled descent for sitting Skilled Intervention/Details: Stand->Sit: Cues for positioning with BSC and recliner, pt provided bilat hand held support and needing increased support for managing a controlled descent Bed-Chair Transfer [place] Level: Bed<->Chair: maximum assist (25% patient effort) [...] managing L side during transfer Toilet Transfer [place] Level: Toilet: moderate assist (50% patient effort) [...] upright gaze when standing Outcome Score(s): [facility] Daily Activity Inpatient Short Form Putting on/Taking Off Lower Body Clothin - Total Assistance Bathin - A Lot of Assistance Toiletin - Total Assistance Putting on/Taking Off Upper Body Clothin - A Little Assistance Groomin - A Little Assistance Eatin - Total Assistance [facility] Activity Raw Score: 11 [facility] Activity Functional Limitation/Modifier: 70.42% Currently Impaired [...] person, Oriented to place, Oriented to situation ("[place]" "hospital" "May" "2024" "stroke") Following Commands: Follows [...] blocking Mobility Assessment/Intervention: Supine to Sit Mobility [place] Level: Supine->Sit: moderate assist (50% patient effort) [...] sitting) Transfer Assessment/Intervention: Sit to Stand Transfer [place] Level: Sit->Stand: moderate assist (50% patient effort) Physical Assist: Sit->Stand: 2 person assist Assistive Device: Sit->Stand: gait belt Skilled Rationale: Arm in arm, Patellar block, Ischial assist, Facilitate anterior shift, Full extension to upright positioning/posture, Finding/maintaining midline positioning Skilled Intervention/Details: Sit->Stand: repeat cues to avoid significant L lean with improvement last standing. x1 from EOB, x2 from BSC Stand to Sit Transfer [place] Level: Stand->Sit: moderate assist (50% patient effort) Physical Assist: Stand->Sit: 2 person assist Assistive Device: Stand->Sit: gait belt Skilled Rationale: Arm in arm, Controlled descent for sitting Skilled Intervention/Details: Stand->Sit: last trial assisted R hand to recliner arm rest and ongoing cues for wt shift to R Bed-Chair Transfer [place] Level: Bed<->Chair: maximum assist (25% patient effort) [...] Mobility Assessment/Intervention: Stairs Assessment/Intervention: Outcome Score(s): [facility] Basic Mobility Inpatient Short Form Turning [...] with a railin - Total Assistance [facility] Mobility Raw Score: 8 [facility] Mobility Functional Limitation: 86.62% Impaired in [...] 10 Treating Therapist: Shaina Rosales PT, DPT [id number] 08/14/2024 Additional Details: PT Co-Eval/Treatment Information Co-evaluation/co-treatment [...] Physical Therapy Discharge Summary. * Tanja Cason, STUDENT ACCOUNTS MANAGER - 08/14/2024 8:37 AM EDT Acute [...] on the below outcome measures/assessment score(s) and STUDENT ACCOUNTS MANAGER clinicaljudgment, discharge destination recommendation is: IPR Barriers to discharge home: 1:1 assist needed for IADL's including medication management and finances Supporting factors for discharge setting: Impaired swallow function limiting nutritional status andsafety with oral intake, Impaired cognitive skills limiting safety/insight Acute STUDENT ACCOUNTS MANAGER Outcomes Tracking Communicate basic wants and [...] independent carry over. Strong family support. Ongoing STUDENT ACCOUNTS MANAGER s indicated. Subjective information: Alert, present. SO referenced his notes from yesterday and reportedcarry over of exercises yesterday. Patient with zero recall Pain: Nonverbal indicator not present Precautions: Patient Safety Communication Prior to Visit: Nursing Lines/Tubes/Drains (Rehab Status): Telemetry, Tube feed Existing Precautions/Restrictions: fall Respiratory Status: O2 Sat (%): 96 % (08/14 0711) O2 Device: room air (08/14 09) Acute STUDENT ACCOUNTS MANAGER Goals Plan of Care by Tanja Cason, STUDENT ACCOUNTS MANAGER at 08/14/2024 2:42 PM Version 1 [...] RoM to achieve technique. Outcome: Ongoing Problem: STUDENT ACCOUNTS MANAGER - Cognition Goal: Orientation Log - [...] next session: 08/14 - ongoing exercises, education STUDENT ACCOUNTS MANAGER Outcomes: FOIS 2 Speech Language Pathologist: [...] of session: none altered Needs in reach. STUDENT ACCOUNTS MANAGER Evaluation and Treatment Time Speech Therapy - Individual 56285: 14 Swallowing Dysfunction Treatment 84792: 14 Upon discontinuation of Acute Care Speech [...] on the below outcome measures/assessment score(s) and STUDENT ACCOUNTS MANAGER clinicaljudgment, discharge destination recommendation is: Inpatient Rehab Facility Barriers to discharge home: 1:1 assist needed for IADL's including medication management and finances Supporting factors for discharge setting: Impaired swallow function limiting nutritional status andsafety with oral intake, Impaired cognitive skills limiting safety/insight Acute STUDENT ACCOUNTS MANAGER Outcomes Tracking Communicate basic wants and [...] O2 Device: room air (08/13 710) Acute STUDENT ACCOUNTS MANAGER Goals Plan of Care by Tanja Cason STUDENT ACCOUNTS MANAGER at 08/13/2024 11:10 AM Version 1 [...] 10 reps this session. Outcome: Ongoing Problem: STUDENT ACCOUNTS MANAGER - Cognition Goal: Orientation Log - [...] considerations: Cognition Patient Instruction/Education comments: Role of STUDENT ACCOUNTS MANAGER, presence and normalized frustration with cognitive-communicative impairments. Focused on memory this date and that patient does not recall education so perseverative questions are normal. Reviewed intermittent silent aspiration from MBS last weekand ongoing signs of dysphagia this session, will plan to coordinate timing for repeat instrumentalwith care team [facility]: [facility] STUDENT ACCOUNTS MANAGER Outcomes: AUNDREA 2 Speech Language Pathologist: RIKI Blancas Time [...] of session: none altered Needs in reach. STUDENT ACCOUNTS MANAGER Evaluation and Treatment Time Speech Therapy - Individual 11742: 12 Swallowing Dysfunction Treatment 89904: 13 Upon discontinuation of Acute Care Speech Therapy Services or patient discharge from the hospital this note represents the current Speech Therapy Discharge Summary * OWEN Benavides - 08/12/2024 3:21 PM EDT Placement Plan Expected Discharge Date: 08/14/2024 Referred Level of Care: IPR Barriers: Medical Readiness & Precertification Current Referrals and Status 1. [facility]accept[facility] started precertification today. BULMARO Allen Employment Interviewer * Jazzy Aguiar - 08/12/2024 10:46 AM [...] sinkside Mobility Assessment/Intervention: Supine to Sit Mobility [place] Level: Supine->Sit: moderate assist (50% patient effort) [...] positioning Transfer Assessment/Intervention: Sit to Stand Transfer [place] Level: Sit->Stand: maximum assist (25% patient effort) [...] maintaining upright posture Stand to Sit Transfer [place] Level: Stand->Sit: maximum assist (25% patient effort) Physical Assist: Stand->Sit: 2 person assist Assistive Device: Stand->Sit: gait belt, hand held assist Skilled Rationale: Verbal cues, Tactile cues, Hand placement, Positioning, Controlled descent for sitting Skilled Intervention/Details: Stand->Sit: Cues for positioning with recliner and using BUEs to help with appropriate positoining of hips in chair Bed-Chair Transfer [place] Level: Bed<->Chair: maximum assist (25% patient effort) Physical Assist: Bed<->Chair: 2 person assist Assistive Device: Bed<->Chair: gait belt Skilled Rationale: Verbal cues, Tactile cues, Hand placement, Positioning, Technique of activity Skilled Intervention/Details: Bed<->Chair: x1 from EOB to recliner on R. Pt needing increasedsupport for managing L side and sequencing steps for appropriate positioning with recliner Outcome Score(s): [facility]RENT [facility] Daily Activity Inpatient Short Form Putting on/Taking Off Lower Body Clothin - Total Assistance Bathin - A Lot of Assistance Toiletin - Total Assistance Putting on/Taking Off Upper Body Clothin - A Lot of Assistance Groomin - A Lot of Assistance Eatin - Total Assistance [facility] Activity Raw Score: 9 [facility] Activity Functional Limitation/Modifier: 79.59% Currently Impaired [...] clinical decisions and judgements. * Tianna Murray, RD - 08/12/2024 10:37 AM EDT NUTRITION [...] speech and L hemiplegia. She presented to [facility] and was seen on Telestroke, NIHSS [...] goal TF volume. Pt last assessed by STUDENT ACCOUNTS MANAGER 08/08 with recommendations for NPO. S/p [...] chips. Will also increase free water flushes. STUDENT ACCOUNTS MANAGER to see pt tomorrow. Nutrition Focused Physical Exam: Nutrition Focused Physical Exam Completed?: completed Subcutaneous Fat Loss: Orbital Region (Orbital Fat Pads): WDL Cheek Region (Buccal Fat Pads): WDL Upper Arm Region (Triceps): WDL Thoracic and Lumbar Region (Ribs, Lower Back, Midaxillary Line): WDL Muscle Wasting: [place] Region (Temporalis Muscle): deferred (lac over eyebrow) [...] kg (172 lb) 06/26/24 78.9 kg (174 lb)-[facility] 05/31/24 79 kg (174 lb 2.6 oz)-[facility] 11/28/23 80.6 kg (177 lb 9.6 oz)-[facility] 09/29/23 84 kg (185 lb)-[facility] meds reviewed: Scheduled: Reviewed, includes insulin, Synthroid, [...] Needs: Weight Used: 61 kg (IBW) EEN: 9423-2153 kcal/day (25-30 kcal/kg) EPN: 73-92 g/day (1.2-1.5 g/kg) EFN: 1830 mL/day (30 mL/kg) or per primary team Malnutrition Statement: Does the patient meet criteria for malnutrition: No *Based on The Academy and ASPEN Indicators to Diagnose Malnutrition (AAIM) criteria (2012) Tianna Murray RD, LD, [facility] Pager #[phone] * Katie Ramos, PT - 08/12/2024 10:22 [...] standing. Mobility Assessment/Intervention: Supine to Sit Mobility [place] Level: Supine->Sit: moderate assist (50% patient effort) Physical Assist: Supine->Sit: 2 person assist Bed Features/Set-up: Supine->Sit: Head of bed elevated Skilled Rationale: Verbal cues, Tactile cues, Hand placement, Technique of activity Skilled Intervention/Details: Supine->Sit: verbal/tactile cues for instruction on transfer technique and mod A x 2 for LE and trunk management. Transfer Assessment/Intervention: Sit to Stand Transfer [place] Level: Sit->Stand: maximum assist (25% patient effort) Physical Assist: Sit->Stand: 2 person assist Assistive Device: Sit->Stand: gait belt Skilled Rationale: Verbal cues, Tactile cues, Hand placement, Technique of activity Skilled Intervention/Details: Sit->Stand: x2 trials with verbal/tactile cues for instruction on transfer technique, hand placement, and blocking left knee. Bed-Chair Transfer [place] Level: Bed<->Chair: maximum assist (25% patient effort) [...] with a railin - Total Assistance [facility] Mobility Raw Score: 7 [facility] Mobility Functional Limitation: 92.36% Impaired in [...] Physical Therapy Discharge Summary. * Radha Gr, BAGGAGE INSPECTOR-COLOR CONTROL SUPERVISOR - 08/11/2024 7:15 AM EDT NEUROVASCULAR STROKE SERVICE Daily Progress Note IDENTIFYING INFORMATION Lindsay Acuna MR# [id number] 08/11/2024 HISTORY OF PRESENT ILLNESS Lindsay Acuna is a 78 y.o. female with PMH significant for CAD, HTN, HLD, T2DM, Afib (on Eliquis, although patient reports she has not been taking it) who presents with L hemiplegia, slurred speech. LKW 0915 on 08/02, later found down with slurred speech and L hemiplegia. She presented to [facility] and was seen on Telestroke, NIHSS [...] 2b revascularization. INTERVAL HISTORY 08/05: Transfer to [place] MBS tomorrow 08/06: Failed MBS. Increased lopressor. [...] (home dose), give mag , NPO at [place] for FABIAN PHYSICAL EXAM Gen: awake, alert [...] today 08/11 -Rate controlled on metoprolol Dysphagia: -STUDENT ACCOUNTS MANAGER following -NPO, DHT + TF -Failed [...] Lindsay Acuna will likely be discharged to [facility] when medically ready Radha Gr, JASIEL-COLOR CONTROL SUPERVISOR 08/11/2024 10:17 AM VITAL SIGNS Temp: [97.2 [...] for specific therapeutic recommendations, please see the uptwister tender report of the speech pathologist. Examination performed [...] and neurological examinations as recorded by the HERB DOCTOR repeated and confirmed. I have personally reviewed [...] Progress Note IDENTIFYING INFORMATION Lindsay Acuna MR# [id number] 08/10/2024 HISTORY OF PRESENT ILLNESS Lindsay Acuna is a 78 y.o. female with PMH significant for CAD, HTN, HLD, T2DM, Afib (on Eliquis, although patient reports she has not been taking it) who presents with L hemiplegia, slurred speech. LKW 0915 on 08/02, later found down with slurred speech and L hemiplegia. She presented to [facility] and was seen on Telestroke, NIHSS [...] 2b revascularization. INTERVAL HISTORY 08/05: Transfer [place] [facility] tomorrow 08/06: Failed MBS. Increased lopressor. Spouse [...] as above -Rate controlled on metoprolol Dysphagia: -STUDENT ACCOUNTS MANAGER following -NPO, DHT + TF -Failed [...] Lindsay Acuna will likely be discharged to [facility] when medically ready Radha Gr APRN-COLOR CONTROL SUPERVISOR 08/10/2024 7:14 AM VITAL SIGNS Temp: [97.4 [...] for specific therapeutic recommendations, please see the uptwister tender report of the speech pathologist. Examination performed [...] skin and external bumper. - If used fci, PEG should be changed every 3-6 months [...] Hepatology, and Nutrition Clinical Fellow PGY-4 Pager: [phone] For follow up questions regarding this patient 7am to 5pm, contact the IBD consults fellow or DAHLIA on BULX. [facility]--> Internal Medicine--> Gastroenterology, Hepatology, & Nutrition--> IBD Consult Service Fel Day OR IBD Consult Service DAHLIA Day For urgent/stat calls or new consults 5pm to 7am or all day on the weekend, please page the on-callGI fellow on BULX. [facility]--> Internal Medicine--> Gastroenterology, Hepatology, & [...] please contact for assistance as needed (8:00am-4:30pm) AJNI: [phone] Candace: [phone] Johan: [phone] Ross: [phone] For Social Work assistance for the weekend, please contact SW for assistance as needed (8:00am - 4:30pm): BASH: [phone] Candace: [phone] Johan: [phone] Ross: [phone] * Radha Gr, BAGGAGE INSPECTOR-COLOR CONTROL SUPERVISOR - 08/09/2024 8:07 AM EDT NEUROVASCULAR STROKE SERVICE Daily Progress Note IDENTIFYING INFORMATION Lindsay Acuna MR# [id number] 08/09/2024 HISTORY OF PRESENT ILLNESS Lindsay Acuna is a 78 y.o. female with PMH significant for CAD, HTN, HLD, T2DM, Afib (on Eliquis, although patient reports she has not been taking it) who presents with L hemiplegia, slurred speech. LKW 0915 on 08/02, later found down with slurred speech and L hemiplegia. She presented to [facility] and was seen on Telestroke, NIHSS [...] 2b revascularization. INTERVAL HISTORY 08/05: [place]BS tomorrow 08/06: Failed MBS. Increased lopressor. [...] as above -Rate controlled on metoprolol Dysphagia: -STUDENT ACCOUNTS MANAGER following -NPO, DHT + TF -Failed [...] Lindsay Acuna will likely be discharged to [facility] when medically ready Radha Gr APRN-COLOR CONTROL SUPERVISOR 08/09/2024 8:07 AM VITAL SIGNS Temp: [97.3 [...] for specific therapeutic recommendations, please see the uptwister tender report of the speech pathologist. Examination performed [...] 08/12/2024 10:46 AM EDT * Shelton Steel, STUDENT ACCOUNTS MANAGER - 08/08/2024 1:10 PM EDT Acute [...] on the below outcome measures/assessment score(s) and STUDENT ACCOUNTS MANAGER clinicaljudgment, discharge destination recommendation is: Inpatient Rehab Facility Acute STUDENT ACCOUNTS MANAGER Outcomes Tracking Communicate basic wants and [...] pressions and introduction to effortful swallow exercise. STUDENT ACCOUNTS MANAGER provided education regarding recommendation of NPO [...] constraints (transport arrived for pt's CT scan). STUDENT ACCOUNTS MANAGER will follow as able. Subjective information: Patient upright in chair, at bedside. Agreeable to STUDENT ACCOUNTS MANAGER session. Pain: General Pain Documentation (Adult, [...] room air Flow (L/min): [3] 3 Acute STUDENT ACCOUNTS MANAGER Goals Plan of Care by RIKI [...] phsyiology, risks of aspiration pneumonia). Educated regarding STUDENT ACCOUNTS MANAGER role in swallow rehab and future POC Plan for next session: 08/06: cog tx and dysphagia exercises STUDENT ACCOUNTS MANAGER Outcomes: FOIS: 1 Speech Language Pathologist: RIKI Penaloza Time In: 1310 Time Out: 1330 Total Visit Time: 20 minutes Total Treatment Time (skilled, billable minutes): 20 minutes Non-billable assistance during session: NA Assisted by during session: NA PPE used during patient interaction: gloves Patient location/status at end of session: chair Patient alarms at end of session: none altered Needs in reach. STUDENT ACCOUNTS MANAGER Evaluation and Treatment Time Swallowing Dysfunction Treatment 31983: 20 Upon discontinuation of Acute Care Speech [...] feedback Mobility Assessment/Intervention: Supine to Sit Mobility [place] Level: Supine->Sit: moderate assist (50% patient effort) Physical Assist: Supine->Sit: 2 person assist Bed Features/Set-up: Supine->Sit: Use of bed rail, Head of bed elevated Skilled Rationale: Sequencing, Verbal cues, Hand placement, Positioning Skilled Intervention/Details: Supine->Sit: increased time/cues Transfer Assessment/Intervention: Sit to Stand Transfer [place] Level: Sit->Stand: moderate assist (50% patient effort) Physical Assist: Sit->Stand: 2 person assist Assistive Device: Sit->Stand: gait belt, hand held assist Skilled Rationale: Positioning, Sequencing, Hand placement, Verbal cues Skilled Intervention/Details: Sit->Stand: Pt educated in sit to stand transfers x 2 attempts, one from EOB and one from chair Bed-Chair Transfer [place] Level: Bed<->Chair: maximum assist (25% patient effort) [...] Mobility Assessment/Intervention: Stairs Assessment/Intervention: Outcome Score(s): [facility] Basic Mobility Inpatient Short Form Turning [...] with a railin - Total Assistance [facility] Mobility Raw Score: 8 [facility] Mobility Functional Limitation: 86.62% Impaired in [...] positioning Mobility Assessment/Intervention: Supine to Sit Mobility [place] Level: Supine->Sit: moderate assist (50% patient effort) [...] positioning Transfer Assessment/Intervention: Sit to Stand Transfer [place] Level: Sit->Stand: moderate assist (50% patient effort) Physical Assist: Sit->Stand: 2 person assist Assistive Device: Sit->Stand: gait belt, hand held assist Skilled Rationale: Verbal cues, Tactile cues, Hand placement, Positioning, Technique of activity Skilled Intervention/Details: Sit->Stand: x1 from EOB, x1 from recliner. Cues for technique and assuming an upright posture once standing Stand to Sit Transfer [place] Level: Stand->Sit: moderate assist (50% patient effort) Physical Assist: Stand->Sit: 2 person assist Assistive Device: Stand->Sit: gait belt, hand held assist Skilled Rationale: Verbal cues, Tactile cues, Hand placement, Positioning, Controlled descent for sitting Skilled Intervention/Details: Stand->Sit: Cues for positioning with recliner and using arms to help with controlled descent into chair Bed-Chair Transfer [place] Level: Bed<->Chair: maximum assist (25% patient effort) [...] appropriately position with chair. Outcome Score(s): [facility] Daily Activity Inpatient Short Form Putting on/Taking Off Lower Body Clothin - Total Assistance Bathin - A Lot of Assistance Toiletin - Total Assistance Putting on/Taking Off Upper Body Clothin - A Lot of Assistance Groomin - A Lot of Assistance Eatin - Total Assistance [facility] Activity Raw Score: 9 [facility] Activity Functional Limitation/Modifier: 79.59% Currently Impaired [...] Progress Note IDENTIFYING INFORMATION Lindsay Acuna MR# [id number] 08/08/2024 HISTORY OF PRESENT ILLNESS Lindsay Acuna is a 78 y.o. female with PMH significant for CAD, HTN, HLD, T2DM, Afib (on Eliquis, although patient reports she has not been taking it) who presents with L hemiplegia, slurred speech. TOREYW 0915 on 08/02, later found down with slurred speech and L hemiplegia. She presented to [facility] and was seen on Telestroke, NIHSS [...] 2b revascularization. INTERVAL HISTORY 08/05: Transfer to [place] MBS tomorrow 08/06: Failed MBS. Increased lopressor. [...] as above -Rate controlled on metoprolol Dysphagia: -STUDENT ACCOUNTS MANAGER following -NPO, DHT + TF -Failed [...] Lindsay Acuna will likely be discharged to [facility] when medically ready Bella Cardenas, BAGGAGE INSPECTOR-COLOR CONTROL SUPERVISOR 08/08/2024 2:53 PM VITAL SIGNS Temp: [97.4 [...] for specific therapeutic recommendations, please see the uptwister tender report of the speech pathologist. Examination performed [...] bed availability Current Referrals and Status 1. [facility]- Reserved CCM notified LUCIO student confirming after call with Patient's daughter that [facility] is facility of choice. Facility reserved. AVS/DAVE updated. Chela Snyder Social Work Student Available by Secure Chat Cosigned by OWEN Keller at 08/08/2024 7:39 AM EDT * Prema Resendez RN - 08/07/2024 2:39 PM EDT Care Management Progress Note Notified by LUCIO bedolla that patient's daughter, Gisela Aucna, has questions for this CM. Called Gisela, who asked if [facility] is able to accept or not. Discussed with Gisela that [facility] responded that they are out of network with patient's insurance, therefore only option would be private pay. Gisela stated that patient and patient's spouse are agreeable to [facility] as facility of choice, and Gisela is agreeable to [facility] as well. Updated SW student. Simin Resendez RN, BSN Clinical First Aid Director [facility] * Chela Hannon - 08/07/2024 2:08 PM EDT Placement Plan CHARTERED ACCOUNTANT met with Patient and spouse at bedside to discuss facility choice. Spouse mentioned that [facility] was first choice, though CHARTERED ACCOUNTANT provided update that [facility] could not accept after reviewing. CHARTERED ACCOUNTANT reviewed other IPR options with Spouse, who reports that [facility] would be facility of choice. Spouse discussed with daughter Gisela via phone, who is in agreement but requestsa return call. CHARTERED ACCOUNTANT notified CCM. Chela Snyder, Social Work Student Available by Secure Chat Cosigned by OWEN Keller at 08/07/2024 2:11 PM EDT * Bella Cardenas APRN-GARRETT - 08/07/2024 6:54 AM EDT NEUROVASCULAR STROKE SERVICE Daily Progress Note IDENTIFYING INFORMATION Lindsay Acuna MR# [id number] 08/07/2024 HISTORY OF PRESENT ILLNESS Lindsay Acuna is a 78 y.o. female with PMH significant for CAD, HTN, HLD, T2DM, Afib (on Eliquis, although patient reports she has not been taking it) who presents with L hemiplegia, slurred speech. LKW 0915 on 08/02, later found down with slurred speech and L hemiplegia. She presented to [facility] and was seen on Telestroke, NIHSS [...] 2b revascularization. INTERVAL HISTORY 08/05: Transfer [place] [facility] tomorrow 08/06: Failed MBS. Increased lopressor. Spouse [...] as above -Rate controlled on metoprolol Dysphagia: -STUDENT ACCOUNTS MANAGER following -NPO, DHT + TF -Failed [...] Lindsay Acuna will likely be discharged to [facility] when medically ready Bella Cardenas APRN-COLOR CONTROL SUPERVISOR 08/07/2024 3:06 PM VITAL SIGNS Temp: [97.5 [...] for specific therapeutic recommendations, please see the uptwister tender report of the speech pathologist. Examination performed [...] authorization, transportation Current Referrals and Status 1. [facility]: Available 2. [facility]: Available 3. [facility]: Available (pending PEG or diet and their MD requested aspirin started before discharge) 4. [facility]: Available 5. [facility]: Unavailable, out of network 6. [facility] Inpatient [facility]hab: Unavailable, Incorrect Level of Care 7. [facility] IPR: sent Met with patient and patient's spouse, Ike, at bedside to provide choice list. Ike called patient's daughter, Gisela Acuna, to discuss as well. Gisela requested information on private pay at [facility], messaged [facility] liaison and then provided information to Gisela. Gisela requested CM sendreferral to [facility] IPR. Plan for family to review choice list tonight, CM/SW team will update patient and family regarding [facility] IPR response tomorrow morning. This CM's contact information provided to Ike Acuna and Gisela Acuna for any further questions. Simin Resendez RN, BSN Clinical First Aid Director [facility] * Florinda Velasquez PT - 08/06/2024 2:30 [...] minutes Mobility Assessment/Intervention: Supine to Sit Mobility [place] Level: Supine->Sit: moderate assist (50% patient effort) Bed Features/Set-up: Supine->Sit: Head of bed elevated, Use of bed rail Skilled Rationale: Positioning, Sequencing Skilled Intervention/Details: Supine->Sit: step by step cues for sequencingg Transfer Assessment/Intervention: Sit to Stand Transfer [place] Level: Sit->Stand: moderate assist (50% patient effort) [...] left UE during transitional movements Bed-Chair Transfer [place] Level: Bed<->Chair: moderate assist (50% patient effort) Physical Assist: Bed<->Chair: 2 person assist Assistive Device: Bed<->Chair: gait belt, hand held assist Skilled Rationale: Positioning, Hand placement, Verbal cues, Sequencing Skilled Intervention/Details: Bed<->Chair: Pt educated in bed to BSC commode transfer x 2-3 steps with cues for LE sequencing, left LE weakness requiring intermittent blocking Gait/Functional Mobility Assessment/Intervention: Gait Assessment [place] Level: Gait: (mod/max) Physical Assist: Gait: 2 [...] prevent buckling. Stairs Assessment/Intervention: Outcome Score(s): [facility] Basic Mobility Inpatient Short Form Turning [...] with a railin - Total Assistance [facility] Mobility Raw Score: 9 [facility] Mobility Functional Limitation: 81.38% Impaired in [...] Therapy Discharge Summary. * Nimesh Balderrama [facility] - 08/06/2024 1:42 PM EDT Department of Pharmacy Admission Medication Reconciliation Note Patient: Lindsay Acuna Room/Bed: 1043/A I have reviewed the patient's home medication list with the following sources Dispense Report. The home medication list status is: complete. All changes to the home medication list have been updated in [facility]. Updated MAILER APPRENTICE Med List: Prior to Admission Medications Prescriptions [...] any further questions. Name: Nimesh Balderrama [facility] Phone #: [phone] Date/Time: 08/06/2024 1:42 PM Time Spent: 10 [...] noted Mobility Assessment/Intervention: Supine to Sit Mobility [place] Level: Supine->Sit: moderate assist (50% patient effort) [...] completion. Transfer Assessment/Intervention: Sit to Stand Transfer [place] Level: Sit->Stand: (x 1 trial from EOB [...] and kyphotic posture. Stand to Sit Transfer [place] Level: Stand->Sit: moderate assist (50% patient effort) Assistive Device: Stand->Sit: gait belt (Arm and arm assist.) Skilled Rationale: Cues for increased safety, Initiation and execution of task, Technique of activity, Controlled descent for sitting, Ischial assist, Arm in arm, Tactile cues, Verbal cues, Hand placement, Sequencing, Positioning Bed-Chair Transfer [place] Level: Bed<->Chair: moderate assist (50% patient effort) [...] with left LE). Functional Mobility: Functional Mobility [place] Level: Functional Mobility/Gait: (Moderate-max assistance) Physical Assist: [...] overall decreased insight/awareness intodeficits. Outcome Score(s): [facility] Daily Activity Inpatient Short Form Putting on/Taking Off Lower Body Clothin - Total Assistance Bathin - A Lot of Assistance Toiletin - Total Assistance Putting on/Taking Off Upper Body Clothin - A Lot of Assistance Groomin - A Lot of Assistance Eatin - Total Assistance ([place].) [facility] Activity Raw Score: 9 [facility] Activity Functional Limitation/Modifier: 79.59% Currently Impaired [...] Occupational Therapy Discharge Summary. * Taran Traore APRN-COLOR CONTROL SUPERVISOR - 08/06/2024 7:49 AM EDT NEUROVASCULAR STROKE SERVICE Daily Progress Note IDENTIFYING INFORMATION Lindsay Acuna MR# [id number] 08/06/2024 HISTORY OF PRESENT ILLNESS Lindsay Acuna is a 78 y.o. female with PMH significant for CAD, HTN, HLD, T2DM, Afib (on Eliquis, although patient reports she has not been taking it) who presents with L hemiplegia, slurred speech. LKW 0915 on 08/02, later found down with slurred speech and L hemiplegia. She presented to [facility] and was seen on Telestroke, NIHSS [...] 2b revascularization. INTERVAL HISTORY 08/05: Transfer [place] [facility] tomorrow 08/06: Failed MBS. Increased lopressor. Spouse [...] as above -Rate controlled on metoprolol Dysphagia: -STUDENT ACCOUNTS MANAGER following -NPO, DHT + TF -Failed [...] Lindsay Acuna will likely be discharged to [facility] when medically ready Taran Traore, BAGGAGE INSPECTOR-COLOR CONTROL SUPERVISOR 08/06/2024 1:43 PM VITAL SIGNS Temp: [96.5 [...] for specific therapeutic recommendations, please see the uptwister tender report of the speech pathologist. Examination performed [...] Progress Note IDENTIFYING INFORMATION Lindsay Acuna MR# [id number] 08/05/2024 HISTORY OF PRESENT ILLNESS Lindsay Acuna is a 78 y.o. female with PMH significant for CAD, HTN, HLD, T2DM, Afib (on Eliquis, although patient reports she has not been taking it) who presents with L hemiplegia, slurred speech. LKW 0915 on 08/02, later found down with slurred speech and L hemiplegia. She presented to [facility] and was seen on Telestroke, NIHSS [...] 2b revascularization. INTERVAL HISTORY 08/05: Transfer to [facility] tomorrow PHYSICAL EXAM Gen: awake, alert, [...] as above -Rate controlled on metoprolol Dysphagia: -STUDENT ACCOUNTS MANAGER following -NPO, DHT + TF -MBS tomorrow HLD, POA: -Atorvastatin 40 mg daily CAD, POA: -Hold ASA for 7 days due to ICH T2DM, POA: -SSI regular + accuchecks CKD Stage 3A, POA: Baseline Cr 1.3 -Avoid nephrotoxins, monitor Hypothyroidism, POA: -Continue home levothyroxine 75 mcg daily Disposition: Lindsay Acuna will likely be discharged to [facility] when medically ready Taran Traore APRN-GARRETT 08/05/2024 2:19 PM VITAL SIGNS Temp: [97.8 [...] on the below outcome measures/assessment score(s), and STUDENT ACCOUNTS MANAGER clinical judgment, discharge destination recommendation is: [...] Impaired cognitive skills limiting saf ety/insight Acute STUDENT ACCOUNTS MANAGER Outcomes Tracking Communicate basic wants and [...] oropharyngeal swallow function to most appropriately guide STUDENT ACCOUNTS MANAGER plan of care. Of note, patient [...] Currentdeficits impact her safety and independence. Ongoing STUDENT ACCOUNTS MANAGER services are warranted. Subjective information: Awake, [...] O2 Device: room air (08/05 0830) Acute STUDENT ACCOUNTS MANAGER Goals Plan of Care by Queta Gardner STUDENT ACCOUNTS MANAGER at 08/05/2024 11:49 AM Version 1 [...] oropharyngeal swallow function to most appropriately guide STUDENT ACCOUNTS MANAGER plan of care Outcome: Ongoing Problem: STUDENT ACCOUNTS MANAGER - Cognition Goal: Orientation Log - [...] better assess deficits and most appropriately guide STUDENT ACCOUNTS MANAGER plan of care Outcome: Met Tx: [...] Plan for next session: 08/05: Good candidate; [facility] STUDENT ACCOUNTS MANAGER Outcomes: STUDENT ACCOUNTS MANAGER Outcomes / Standardized Measures Score The [...] wrist restraints, RN aware Needs in reach. STUDENT ACCOUNTS MANAGER Evaluation and Treatment Time Speech Therapy - Individual 06047: 8 Swallowing Dysfunction Treatment 86841: 9 Upon discontinuation of Acute Care Speech Therapy Services or patient discharge from the hospital this note represents the current Speech Therapy Discharge Summary * Chela Hannon - 08/05/2024 10:37 AM EDT Placement Plan Expected Discharge Date: TBD Referred Level of Care: IPR Barriers: medical stability, bed availability Current Referrals and Status 1. [facility]- sent; denied (Patient is OON) 2. [facility]- sent 3. [facility]- sent 4. [facility]- sent 5. [facility]- sent 6. [facility] CHARTERED ACCOUNTANT met with Patient and Spouse at bedside to discuss discharge planning. Patient and spouse were agreeable to SW visit. CHARTERED ACCOUNTANT discussed therapy recommendations with Spouse for Patient to go to [facility] at discharge. Spouse is agreeable to a referral being sent to [facility]. Referral sent. Spouse requested to speak to about assessing Patient for dementia. CHARTERED ACCOUNTANT and bedside RN encouragedSpouse to discuss with Patient's outpatient provider. Chela Snyder, Social Work Student Available by Secure Chat Cosigned by OWEN Keller at 08/05/2024 11:22 AM EDT * Savana Nietosandee, RD - 08/05/2024 10:10 AM EDT NUTRITION ASSESSMENT Nutrition Recommendations and Plan of Care: 1. Diet: NPO. Advancement per team/STUDENT ACCOUNTS MANAGER recommendation 2. Ordered TF: Glucerna 1.5 [...] time. Per team, pt failed bedside swallow. STUDENT ACCOUNTS MANAGER consulted for swallow eval. 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 Tmax: 97.8*F BP: (!) 173/94 Pulse (Heart [...] proximal second portion of the duodenum. BM: MAILER APPRENTICE Urine: 725mL Skin: Raghu Score: 13 Active Wounds: Wound Sheath Site 08/02/24 1500 Right Radial (3) Wound Abrasion 08/02/24 2109 Left;Upper Face (3) Edema- None Estimated Nutrition Needs: Based on IBW (61.4kg) Estimated Kcals Needs: 9366-3866 kcals (25-30kcals/kg) Estimated Pro Needs: 74-92g Pro (1.2-1.5g/kg) Estimated Fluid Needs: Per MD Nutrition Focused Physical Exam Completed?: completed Subcutaneous Fat Loss: Orbital Region (Orbital Fat Pads): WDL Cheek Region (Buccal Fat Pads): WDL Upper Arm Region (Triceps): WDL Thoracic and Lumbar Region (Ribs, Lower Back, Midaxillary Line): WDL Muscle Wasting: Samaritan Region (Temporalis Muscle): deferred (lac over eyebrow) [...] (AAIM) criteria (2012) ELVIRA Ho, RD, LD, [facility] Pager: [phone] * Rashad Rg MD - 08/05/2024 9:42 AM EDT 78F admitted to the [facility] with Rt M1 occlusion s/p TICI2b revascularization. [...] Total critical care time 31min. * Shanna Mooregonzalo, BAGGAGE INSPECTOR-COLOR CONTROL SUPERVISOR - 08/05/2024 7:20 AM EDT NEUROCRITICAL CARE [...] Visual richards intact to confrontation. PERRL. 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 No nystagmus. 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, pager #[phone] NCC2 (Beds [phone], 12 [address]ando, and overflow): [place] #: [phone], pager #[phone] * Florinda Velasquez, PT - 08/04/2024 1:36 [...] noted Mobility Assessment: Supine to Sit Mobility [place] Level: Supine->Sit: moderate assist (50% patient effort) [...] EOB Transfer Assessment: Sit to Stand Transfer [place] Level: Sit->Stand: moderate assist (50% patient effort) Physical Assist: Sit->Stand: 2 person assist Assistive Device: Sit->Stand: gait belt, hand held assist Skilled Rationale: Positioning, Sequencing, Hand placement, Verbal cues Skilled Intervention/Details: Sit->Stand: x 1 from EOB Bed-Chair Transfer [place] Level: Bed<->Chair: moderate assist (50% patient effort) Physical Assist: Bed<->Chair: 2 person assist Assistive Device: Bed<->Chair: gait belt, hand held assist Skilled Rationale: Positioning, Sequencing, Hand placement, Verbal cues Skilled Intervention/Details: Bed<->Chair: x 2-3 steps from bed to chair Gait/Functional Mobility: Stairs: Outcome Score(s): [facility] Basic Mobility Inpatient Short Form Turning [...] with a railin - Total Assistance [facility] Mobility Raw Score: 10 [facility] Mobility Functional Limitation: 76.75% Impaired in [...] Edema: Mobility Assessment: Supine to Sit Mobility [place] Level: Supine->Sit: moderate assist (50% patient effort) Physical Assist: Supine->Sit: 2 person assist Bed Features/Set-up: Supine->Sit: Head of bed elevated Skilled Rationale: Positioning, Hand placement, Verbal cues, Technique of activity Transfer Assessment: Sit to Stand Transfer [place] Level: Sit->Stand: moderate assist (50% patient effort) Physical Assist: Sit->Stand: 2 person assist Assistive Device: Sit->Stand: gait belt, hand held assist Skilled Rationale: Positioning, Hand placement, Verbal cues, Technique of activity Stand to Sit Transfer [place] Level: Stand->Sit: moderate assist (50% patient effort) Physical Assist: Stand->Sit: 2 person assist Assistive Device: Stand->Sit: hand held assist Skilled Rationale: Positioning, Hand placement, Verbal cues, Arm in arm, Controlled descent for sitting Bed-Chair Transfer [place] Level: Bed<->Chair: moderate assist (50% patient effort) Physical Assist: Bed<->Chair: 2 person assist Assistive Device: Bed<->Chair: gait belt, hand held assist Skilled Rationale: Arm in arm, Patellar block, Technique of activity Skilled Intervention/Details: Bed<->Chair: LLE weakness/blocking of patella with transfer, pivot to right Functional Mobility: Outcome Score(s): [facility] Daily Activity Inpatient Short Form Putting on/Taking Off Lower Body Clothin - A Lot of Assistance Bathin - A Lot of Assistance Toiletin - Total Assistance Putting on/Taking Off Upper Body Clothin - A Lot of Assistance Groomin - A Little Assistance Eatin - Total Assistance [facility] Activity Raw Score: 11 CURRENT [facility] Activity Functional Limitation/Modifier: 70.42% Currently Impaired [...] OT Evaluation and Treatment Time OT Evaluation ([facility]) Time Entry: 18 Evaluating Therapist: Dona [...] assessment and plan as documented by the HERB DOCTOR with my changes/additions added. Patient is a [...] ICH x 7 days - Statin - PT/OT/STUDENT ACCOUNTS MANAGER evaluation Pulmonary: No acute issues, appears [...] and other supportive care as per the HERB DOCTOR note from the same day This patient [...] [facility], [facility] and other care providers. Management of the above was performed. My time managing this critically ill patient included review of interval history, laboratories, radiology and cons ultation reports; performing a physical examination; discussing the patient with the multi-disciplinary team and managing life sustaining therapies to prevent imminent clinical deterioration. Richard Mejia MD Neurocritical Care Attending * Balbir Mccoy, BAGGAGE INSPECTOR-COLOR CONTROL SUPERVISOR - 08/04/2024 7:44 AM EDT NEUROCRITICAL CARE [...] Visual richards intact to confrontation. PERRL. 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 No nystagmus. [...] SpO2 >92%; wean FiO2 as tolerated - [id number], encourage pulmonary toileting Cards: Essential HTN HLD [...] TUBE FEEDING with meds (per DHT) - [place] Swallow Screening Result: failed=NPO Bowel regimen: - Last Bowel Movement: (prior to admission) - Senna 17.2 mg Q12H, miralax at bedtime Stress ulcer prophylaxis: - none Dysphagia - DHT placed - STUDENT ACCOUNTS MANAGER following - Tube feed: Vital AF [...] the assigned neurocritical care provider (resident, fellow, HERB DOCTOR, orPA) or page/call the corresponding number below NCC1 (Beds [phone]): [place] # [phone], pager #[phone] NCC2 (Beds 7831-0935, [address], and overflow): [place] #: [phone], pager #[phone] * Rafael Garcia MD - 08/03/2024 2:16 PM EDT NEUROVASCULAR Consult Daily Progress Note IDENTIFYING INFORMATION Lindsay Acuna MR# [id number] 08/03/2024 HISTORY OF PRESENT ILLNESS Lindsay Acuna is a 78 y.o. female with PMH significant for CAD, HTN, HLD, T2DM, Afib (on Eliquis, although patient reports she has not been taking it) who presents with L hemiplegia, slurred speech. She was last seen normal by her at 0915, later found down with slurred speech and L hemiplegia. She presented to [facility] and was seen on Telestroke, NIHSS [...] speech and L hemiplegia. She presented to [facility] and was seen on Telestroke, NIHSS [...] workup. Delbert Kasper MD * Nohelia Oconnell, STUDENT ACCOUNTS MANAGER - 08/03/2024 12:09 PM EDT Acute Care STUDENT ACCOUNTS MANAGER Speech/Language/Cognitive Evaluation Best mode of Communication: spoken language (regular speech) Discharge Recommendations: Based on the below outcome measures/assessment score(s) and STUDENT ACCOUNTS MANAGER clinicaljudgment, discharge destination recommendation is: (Skilled speech therapy services at next level of care) Barriers to discharge home: Cognitive impairments that impact safety and independence Supporting factors for discharge setting: Impaired swallow function limiting nutritional status andsafety with oral intake Acute STUDENT ACCOUNTS MANAGER Outcomes Tracking Communicate basic wants and [...] speech and L hemiplegia. She presented to [facility] and was seen on Telestroke,NIHSS 12. [...] 0 Asthenia (A): 0 Strain (S): 0 STUDENT ACCOUNTS MANAGER Outcomes / Standardized Measures Score The [...] unable to respond. Total Score: 12 Acute STUDENT ACCOUNTS MANAGER Goals Plan of Care by RIKI Hayes at 08/03/2024 11:25 AM Version 1 of 1 Problem: Dysphagia Goal: Ongoing Assessment - Patient will participate in ongoing assessment by accepting various PO consistency trials with appropriate participation/oral acceptance and no significant respiratory complications to determine readiness for diet advancement Outcome: Ongoing Problem: STUDENT ACCOUNTS MANAGER - Cognition Goal: Orientation Log - [...] better assess deficits and most appropriately guide STUDENT ACCOUNTS MANAGER plan of care Outcome: Ongoing Speech [...] of session: bed alarm Needs in reach. STUDENT ACCOUNTS MANAGER Evaluation and Treatment Time Speech Eval - Sound Production W/Lang Comp and Exp 15174: 11 Swallowing Eval 59129: 10 Upon discontinuation of Acute Care Speech [...] on the below outcome measures/assessment score(s) and STUDENT ACCOUNTS MANAGER clinicaljudgment, discharge destination recommendation is: Deferred to PT/OT recomendations related to mobility Current therapy frequency recommendation in acute care: Swallow Therapy Frequency: 5 times a week Acute STUDENT ACCOUNTS MANAGER Outcomes Tracking Communicate basic wants and [...] speech and L hemiplegia. She presented to [facility] and was seen on Telestroke,NIHSS 12. 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 Prior STUDENT ACCOUNTS MANAGER history: No prior speech history per [...] and Liquids Trialed Modality Amount Ice Teaspoon, STUDENT ACCOUNTS MANAGER-fed 3x Thin Teaspoon 3x Oral Phase [...] Patient presents with presumed pharyngeal phase impairments. [place] Swallow Screen: (administered by: RN) [place] Swallow Screening Screening Exclusion Criteria: none, continue with [place] Swallow Screening Cognitive Screen: Orientation: able to [...] Water Swallow Challenge : coughing/throat clearing-overt signs/symptoms [place] Swallow Screening Result: failed=NPO Voice and Swallow [...] Ok for ice chips with RN supervision. STUDENT ACCOUNTS MANAGER will continue to follow for ongoing dysphagia management. Patient Education/Instruction Learners: Patient Education provided: Dysphagia recommendation risk: benefit analysis, Role of this discipline Teaching method: Verbal Education/Instruction Learner response: Needs review Learning preferences: Auditory Learning considerations: Cognition Plan for next session: 08/03: Good Prognosis, ongoing dysphagia management to determine readiness for diet advancement vs instrumental. Acute STUDENT ACCOUNTS MANAGER Goals Plan of Care by RIKI Hayes at 08/03/2024 11:25 AM Version 1 of 1 Problem: Dysphagia Goal: Ongoing Assessment - Patient will participate in ongoing assessment by accepting various PO consistency trials with appropriate participation/oral acceptance and no significant respiratory complications to determine readiness for diet advancement Outcome: Ongoing Problem: STUDENT ACCOUNTS MANAGER - Cognition Goal: Orientation Log - [...] better assess deficits and most appropriately guide STUDENT ACCOUNTS MANAGER plan of care Outcome: Ongoing Speech Language Pathologist: RIKI Hayes, [facility] Board Certified Specialist in Swallowing and Swallowing Disorders Available via Epic Chat Time In: 1130 Time Out: 1151 Total Visit Time: 21 minutes Total Treatment Time (skilled, billable minutes): 21 minutes Non-billable assistance during session: none Assisted by during session: Patient's PPE used during patient interaction: gloves Patient location/status at end of session: bed with head of bed elevated Patient alarms at end of session: bed alarm Needs in reach. STUDENT ACCOUNTS MANAGER Evaluation and Treatment Time Speech Eval - Sound Production W/Lang Comp and Exp 25607: 11 Swallowing Eval 59337: 10 Upon discontinuation of Acute Care Speech Therapy Services or patient discharge from the hospital this note represents the current Speech Therapy Discharge Summary * Richard Mejia MD - 08/03/2024 10:30 AM EDT I have independently seen and examined the patient on 08/03/24. I agree with the history, examination, assessment and plan as documented by the HERB DOCTOR with my changes/additions added. Patient is a [...] the setting of ICH - Statin - PT/OT/STUDENT ACCOUNTS MANAGER evaluation Pulmonary: No acute issues, appears [...] and other supportive care as per the HERB DOCTOR note from the same day This patient [...] care services to the patient today [facility], teaching and other care providers. Management of [...] with assistance from spouse Care Management Plan CHARTERED ACCOUNTANT met with Patient and Spouse at bedside to complete Initial Assessment. They were agreeable to SW visit. Patient was lethargic though able to answer some short questions. Patient consented to Spouse assisting with assessment. Spouse/Patient report that Patient has never completed a HCPOA. They expressed interest, and CHARTERED ACCOUNTANT will follow to complete document when Patient is more alert and oriented. Spouse reports himself and Patient live in a ranch-style home with strong supports from their community, including 2 neighbors that have assisted at this time. He noted that himself and Patient recently returned from a visit to [facility] for their 50 anniversary. Spouse reports that their 2 children will be visiting soon. CHARTERED ACCOUNTANT explained SW role and offered resources. Spouse [...] Name and Contact information: Ike Acuna P: [phone] Adult Child(jj), List All Adult Children: Yes Name and Contact information: Donnell Acuna P: [phone]; Nathen Acuna P: [phone] Would you like to add additional adult [...] for Advance Care Planning? : Patient Agreeable (CHARTERED ACCOUNTANT to follow for HCPOA completion when Patient is more alert and oriented) Medication Management Does the patient have prescription insurance coverage? : Yes Is the patient on Anticoagulation? : Yes (Per chart review, Patient is on anticoagulation but has not been taking it (does not recall the last time she took a dose)) Provider or Clinic that manages Anticoagulation?: (unspecified at this time) [facility] [address] [place] [id number] [address] [facility] [address] [facility] [address] Living Environment and Support System Is the patient from a facility or halfway?: No Living Environment: House ("1 bedroom ranch") Patient Caregiving Responsibilities: Self Patient-identified caregiver/support network: Family, Friends, Neighbors, Shinto Who does the patient identify as a [...] themselves at home? : Unable to assess Editor Book Does the patient or players club representative express financial concerns? : No Chela Snyder Social Work Student Available by Secure Chat Cosigned by OWEN Keller at 08/03/2024 11:20 AM EDT * Balbir Mccoy, BAGGAGE INSPECTOR-COLOR CONTROL SUPERVISOR - 08/03/2024 7:40 AM EDT NEUROCRITICAL CARE DAILY NOTE HOSPITAL VISIT DEMOGRAPHICS Patient: Lindsay Acuna Code status: Full Code Admission date: 08/02/2024 3:02 PM Hospital days: LOS: 1 day CHIEF COMPLAINT Left hemiplegia and slurred speech HISTORY OF PRESENT ILLNESS iLndsay Acuna is a 78 y.o. female with [...] Visual richards intact to confrontation. PERRL. 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 No nystagmus. [...] SpO2 >92%; wean FiO2 as tolerated - [id number], encourage pulmonary toileting Cards: Essential HTN HLD [...] - Bowel regimen: - Last Bowel Movement: (MAILER APPRENTICE) - Senna, miralax Stress ulcer prophylaxis: - none Dysphagia - DHT placed - STUDENT ACCOUNTS MANAGER following - Tube feed: Vital AF [...] prophylaxis - rationale: post thrombectomy [x] Lines [place]: n/a Gallegos: inserted 08/02, (indication: strict I&O) [...] the assigned neurocritical care provider (resident, fellow, HERB DOCTOR, orPA) or page/call the corresponding number below NCC1 (Beds 7128-6996): Pernell # [phone], pager #[phone] NCC2 (Beds 9057-0495, 12 Nando, and overflow): Pernell #: [phone], pager #[phone] * Nando Caceres MD - 08/03/2024 6:00 [...] nccu Neurosurgery signing off Please page NS2 ([phone]) with questions Complexity. Hypocalcemia - Continue to monitor and replete. Any conditions listed below are present on admission unless otherwise specified. . Cosigned by Prema Ramos MD at 08/03/2024 6:37 PM EDT * Andreas Ga [facility] - 08/02/2024 10:57 PM EDT Department of Pharmacy Renal Documentation Note Patient: Lindsay Acuna Room/Bed: [facility]/ Assessment and Plan: The patient's most [...] any questions, Name: Andreas Ga RPH Phone: [phone] Date/Time: 08/02/2024 10:57 PM * Richard Mejia MD - 08/02/2024 6:01 PM EDT I have independently seen and examined the patient on 08/02/24. I agree with the history, examination, assessment and plan as documented by the HERB DOCTOR with my changes/additions added. Patient is a [...] to determine stroke burden - Statin - PT/OT/STUDENT ACCOUNTS MANAGER evaluation Pulmonary: No acute issues, appears [...] stage 3a - Maintain euvolemia GI/Nutrition: - STUDENT ACCOUNTS MANAGER evaluation - Bowel regimen to prevent [...] and other supportive care as per the HERB DOCTOR note from the same day This patient [...] MD Neurocritical Care Attending documented in this [facility]03-29-2025 Consult note* Niru Koch MD - [...] today. Consent obtained by at bedside. - STUDENT ACCOUNTS MANAGER eval: none - RD eval: none [...] dependence ASSESSMENT/RECOMMENDATIONS: - primary team feels that intermodal 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 enteric nutrition is warranted in s/o CVA. Patient is appropriate for endoscopic PEG placement. Consent obtained from at bedside. - we will tentatively plan for EGD for PEG placement 08/09 as add on case. See pre procedure recommendations below. For PEG: - Ancef ordered (1 gm if patient is <80 kg; 2 gm if patient is >80 kg) as "elevator constructor hydraulic to the procedure"). - Please make NPO [...] Hepatology, and Nutrition Clinical Fellow PGY-4 Pager: [phone] For urgent/stat calls 5pm to 7am or all day on the weekend, please page the on- call GI fellow on WebExchange. IM Consult Serv GH[facility] --> [facility] STAT/NEW GI consults For follow up questions regarding this patient, contact the IBD consults fellow or DAHLIA on WebImmuRx. IM Consult Serv GHN --> [facility] [...] and medical decisions as outlined. 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 We will facilitate this with planned PEG tube placement. Before placement, non-GI management of TF should be established to avoid delays. David Woods M.D. 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 Prema Ramos M.D. Addiction Psychiatrist Department of Neurosurgery [facility] * Taran Traore, BAGGAGE INSPECTOR-COLOR CONTROL SUPERVISOR - 08/02/2024 2:44 PM EDT Neurovascular Evaluation [...] speech and L hemiplegia. She presented to [facility] and was seen on Telestroke, NIHSS [...] Scales Flowsheet Row Most Recent Value Modified Castell Scale Score Premorbid (MRSS) 0 filed on [...] protrudes midline Motor: L hemiplegia Reflexes: Coordination: Sjkzcl-ez-nzsu intact on the R, unable to test on the L Sensation: Diminished on the L with tactile extinction on L Gait: Deferred Laboratory Results Diagnostics/Procedures: Labs-CBC Labs-Chem 7([facility]) Labs-Coags Additional Labs No results [...] ED. Continuous telemetry -PT, OT, Speech and director social consults Other problems: Complexity. Any conditions [...] speech and L hemiplegia. She presented to [facility] and was seen on Telestroke, NIHSS [...] Delbert Kasper MD [facility] note* Tanja Hunter, RIKI - [...] the below outcome measures/assessment score(s), MBS, and STUDENT ACCOUNTS MANAGER clinical judgment, discharge destination recommendation is: IP Rehab Facility. Patient demonstrates good candidacy for discharge to: IRF. Additional supporting factors include: Impaired swallow functionlimiting nutritional status and safety with oral intake. Acute STUDENT ACCOUNTS MANAGER Outcomes Tracking Communicate basic wants and [...] speech and L hemiplegia. She presented to [facility] and was seen on Telestroke, NIHSS [...] Thin Barium: teaspoon x2, straw x2 Varibar Onaway Barium: straw x1 Varibar Thin Honey Barium: [...] recommend NPO and nonoral meds. Ongoing skilled STUDENT ACCOUNTS MANAGER services indicated to address deficits and [...] Therapeutic Interventions Met: yes, treatment indicated Acute STUDENT ACCOUNTS MANAGER Goals Plan of Care by Tanja Hunter, STUDENT ACCOUNTS MANAGER at 08/06/2024 9:33 AM Version 1 of 1 Problem: Dysphagia Goal: MBS - Patient will participate in Modified Barium Swallow (MBS) Study to objectively assess oropharyngeal swallow function to most appropriately guide STUDENT ACCOUNTS MANAGER plan of care Outcome: Met Goal: [...] Treatment Time (skilled, billable minutes): 20 minutes STUDENT ACCOUNTS MANAGER Evaluation and Treatment Time MBS/Motion Fluoroscopic Swallowing Eval 56216: 20 Speech Language Pathologist: RIKI Gonzales Time [...] end of session: none altered (RN present) STUDENT ACCOUNTS MANAGER Evaluation and Treatment Time MBS/Motion Fluoroscopic Swallowing Eval 96483: 20 Upon discontinuation of Acute Care Speech Therapy Services or patient discharge from the hospital this note represents the current Speech Therapy Discharge Summary documented in this [facility]03-25-2025 Hospital Discharge instructions* Discharge Instructions* Jhoana Casarez APRN-COLOR CONTROL SUPERVISOR - 08/06/2024 8:38 AM EDT Please take [...] you at all times. Stroke Education: visit [email or web address] What are the most common symptoms of [...] all ordered medications [x] Avoid non-prescription or sckh-rpf-ibsbfvi medication not cleared by your physician [x] [...] may call the neurovascular doctors office at [phone], if you have questions Mon-Fri between 8:30 am and 4:30 pm. - For off hours or the weekend you may call the office or the hospital flexographic press operator at and ask for the stroke resident elevator constructor hydraulic to be paged. - If you have any other questions or needs, please call Aniyah DOSS, RN, Stroke Nurse Navigator at [phone] Mon-Mon between 7:00am and 3:00pm. - Additional assistance may be found by reaching out to our Case Management Office at [phone]. *In the event of an Emergency: If you have a physical or psychiatric emergency call 911 or go to your local emergency department. You should also call your outpatient provider's emergency number. Other reference numbers: [facility] Intake Office at [phone]; [facility] at 526-375-8551; or Suicide Prevention Hotline at 207-385-4591. *Helpful phone numbers: Free Crisis Hotline: 6-203-236-TALK ( ) Suicide Hotline: 774.663.9997 Seniors Suicide Hotline: 122.781.4738 [facility] Youth: 206.162.7048 Mental [facility]: [phone] (free counseling) [facility] Access Hotline: 772-663-DQID (987-917-1275) 24-hour crisis text hotline: Text the word "4hope" to 233-704 for crisis support. Texting this number is [...] Medicaid Applications over the phone. Please call 4-001-654[facility] (3274) and apply over the phone or apply online at www.benefits.[place].gov. Monday-Monday 8am-12pm noon. Medication Assistance Programs [employer] members can buy 100+ common prescriptions for FREE, $3 or $6. Annual membership is $36 for individuals and $72 for families (up to 6 people, including pets). Sign up online or enroll at your nearest pharmacy! -[employer], web site can provide a significant number of coupons for medications at a much lower raymundo. [place] Department of Aging The Department of Aging administers programs and services to meet the needs of older [place]. Services and resources offered per county may include transportation, housekeeping, meals and nutrition, personal care, case management, safety monitoring, home medical equipment, legal services, financial economist, health and wellness, education, caregiver support, respite care, etc. Call to be connected to the universal health services agency on aging serving your community or visit aging.[place].gov/find-services. Request a consultation with a community resource expert at ltssi.age.[place].gov/ [facility] Stroke Support The [facility] Stroke Support Group is for stroke survivors, friends, and family members. Meets on the Monday of each month from 6:30pm-7:30pm at [facility] ([address]; [place] [address]). Contact Chela Nolan, at [phone] or [email or web address]. If you are outside of the [facility], contact The [place] Stroke Association at www.stroke.org or 4-867-8-STROKE or for support groups in your area. You may also refer to the Your Care after a Stroke education booklet at [email or web address].[email or web address].edu/ldeg4170 for additional resources. * Medications* PATRIZIA Miner - 08/06/2024 8:38 AM EDT Know your medicines Make sure you know why you are taking each medicine. Make a master list of all your medicines. Write down the medicine names and doctors' names. Includedoses and side effects too. And write down why you take each medicine. Include all prescription cdeamae-xga-cbqijiq medicines, vitamins, and supplements. Keep this list [...] plan your refills so that you can pickle pumper all your medicines at the same time. [...] changed every 6 months. [facility] History and physical note* PATRIZIA Lam [...] Visual richards intact to confrontation. PERRL. 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 No nystagmus. [...] SpO2 >92%; wean FiO2 as tolerated - [id number], encourage pulmonary toileting Cards: Essential HTN HLD [...] the assigned neurocritical care provider (resident, fellow, HERB DOCTOR, orPA) or page/call the corresponding number below NCC1 (Beds 1439-0061): Pevely # [phone], pager #[phone] NCC2 (Beds 1454-1656, 12 Nando, and overflow): Pevely #: [phone], pager #[phone] Cosigned by Richard Mejia MD at 08/02/2024 11:14 PM EDT documented in [facility] Nurse Note* Rachell Ruffin RN - 08/02/2024 3:13 PM EDT 9 cc air instilled in right radial TR band @ 1520. Glasses placed in bag wit label. Sent to PACU with patient on cart. documented in this [facility] Discharge summary [facility] Medical Records Department [address] [place] [address] Emergency Department Summary 08/02/24 MR#: [id number] Acct: [id number] Name: LINDSAY ACUNA Rep #:[id number] : [...] better, but she is "on round 2." [facility] Medical History Paroxysmal atrial fibrillation with [...] 71.4 H Lymph % (Auto) 17.9 L [place] % (Auto) 8.9 Eos % (Auto) 1.0 [...] on 08/02/2024 at 1250 hours. Reading Location: [facility] Head/Neck CTA 08/02/24 12:24 IMPRESSION: RIGHT CAROTID: Mild degree of calcific plaque at the origin of the right internal carotid artery. LEFT CAROTID: Mild degree of calcific plaque at the origin of the left internal carotid artery. VERTEBRALS: Dominant left vertebral artery INTRACRANIAL: Unremarkable Other impression: No significant stenosis seen. [facility] Rhythm Strip Rhythm Strip: A-fib Rate: 90 Ectopy: None EKG Initial EKG: Attestation: I personally reviewed and interpreted this EKG as follows: Interpretation: No Acute Injury Pattern, Atrial Fibrillation and Non-Specific ST Changes Management Discussion w/another healthcare provider: Director Of Integrated Marketing ([facility] stroke neurology) and Radiologist Stroke Documentation [...] min), Including time spent:, Discussing w/Patient &/or Family/Branch Officer, Discussing w/Consultants, Arranging Admission or Transfer and [...] MD [Primary Care Provider] - Print Language: Cambodian Disposition Disposition: Acute Care Hospital Discharge [facility] [place] What to do if you have Problems For any increased pain, shortness of breath, bleeding, nausea or vomiting, chestpain, or any unexpected problems, contact your Primary Care Provider. Call [facility] ([phone]) or report tothe closest Emergency Room. Call 911 if necessary. 08/02/24 1316 Cosigner Signature (if applicable): CC: Dr. Kameron Caruso MD ~ Signed [facility]03-21-2025 Radiology Diagnostic study note [facility] Imaging Services [address] [place], [place] [id number] STROKE CTA Head AND Neck W/Con MR#: [id number] Acct: [id number] Name: LINDSAY ACUNA Rep #: [id number] : 1945 F 78 From: Regulo Hargrove MD PCP: Dr. Kameron Caruso MD Status: RE G ER Study:STROKE CTA Head AND Neck W/Con Date of Exam: 08/02/24 Exam# [id number] Ordering Dr: Roby Morgan MD PROCEDURE: STROKE [...] impression: No significant stenosis seen. Reading Location: [place] [address] CC: Dr. Pieter Morgan MD; Dr. Kameron Caruso MD ~ Marshmallow Runner: Signed [facility]03-21-2025 Radiology Diagnostic study note [facility] Imaging Services [address] [place], [place] [address] STROKE Brain/Head without Cont MR#: [id number] Acct: [id number] Name: LINDSAY ACUNA Rep #: [id number] : 1945 F 78 From: Shira Cardoso MD PCP: Dr. Kameron Caruso MD Status: RE G ER Study:STROKE Brain/Head without Cont Date of Exam: 08/02/24 Exam# [id number] Ordering Dr: Roby Morgan MD EXAM: CT [...] on 08/02/2024 at 1250 hours. Reading Location: [facility] CC: Dr. Pieter Morgan MD; Dr. Kameron Caruso MD ~ Marshmallow Runner: Signed [facility]02-19-2025 Telephone encounter Note* Telephone Encounter - Mj Glover APRN.COLOR CONTROL SUPERVISOR - 07/03/2024 12:28 PM EST The following approved medication requests have been transmitted electronically. Requested Prescriptions Signed Prescriptions Disp Refills doxycycline monohydrate (MONODOX) 100 mg capsule 56 capsule 0 Sig: Take 1 capsule by mouth two times a day for 28 days. Authorizing Provider: MJ GLOVER APRN.CNP [facility]02-19-2025 Miscellaneous Notes* Telephone Encounter - Mj Glover [...] calling: self Call patient at: on cell [phone] (home) [phone] (cell) Was an appointment scheduled: No Closing statement: Results or non-symptom based questions: Thank you for calling [facility], your call will be returned within the next business day. Katrina Coombs documented in this encounter[facility] [place] Telephone encounter Note * Telephone Encounter - [...] calling: self Call patient at: on cell [phone] (home) [phone] (cell) Was an appointment scheduled: No Closing statement: Results or non-symptom based questions: Thank you for calling [facility], your call will be returned within the next business day. Katrina Malvin [facility]02-18-2025 Telephone encounter Note* Telephone Encounter - Katia Grullon RN - 07/02/2024 11:57 AM EST Patient calls and is requesting Cardiology referral to be faxed to [facility]. Faxed referral as requested. Katia Grullon RN [facility]02-18-2025 Miscellaneous Notes* Telephone Encounter - Katia Grullon RN - 07/02/2024 11:57 AM EST Patient calls and is requesting Cardiology referral to be faxed to [facility]. Faxed referral as requested. Katia Grullon RN documented in [facility] Telephone encounter Note * Telephone Encounter - Bret Arambula LPN - 07/01/2024 12:39 PM EST Patient notified of Rx, verbalizes understanding of instructions. Bret Arambula LPN [facility]02-17-2025 Miscellaneous Notes* Telephone Encounter - Bret Arambula [...] calling: self Call patient at: on cell [phone] (home) [phone] (cell) Was an appointment scheduled: Leslie Swanson documented [facility] this encounter[facility] [place] Telephone encounter Note * Telephone Encounter - [...] 7 days. Authorizing Provider: MJ GLOVER APRN.CNP [facility] [place]-14-[facility] Telephone encounter Note* Telephone Encounter - Adenike Walton MA - 06/28/2024 3:08 PM EST Please review pt message and advise. Adenike Walton MA [facility] [place]-14-[facility] Telephone encounter Note* Telephone Encounter - Goldie [...] calling: self Call patient at: on cell [phone] (home) [phone] (cell) Was an appointment scheduled: No Goldie Swanson [facility] [place]-12-2025 Instructions* Patient Instructions* Emma Sotomayor APRN.CNP - 06/26/2024 10:00 AM EST Recommend consult with cardiology Continue to take all medication as prescribed Get repeat thyroid labs when you get back from vacation Contact the office with preferred malaria medication Follow up in 6 months. documented in this encounterSelect [facility] [place] History of Present illness Narrative* Emma Sotomayor [...] EKG last month at in office visit withP. Taking Eliquis 2.5 mg 1 pill BID. [...] APRN.GARRETT This note was partially generated using [employer] voice recognition system. Note was reviewed for accuracy. There may be minor misspellings or grammar miscues with [employer] voice recognition. documented in this encounterSelect [facility] [place]25 NoteHNO ID: [id number] Author: EMMA SOTOMAYOR APRN.CNP Service: ? Author [...] times daily Dx: E11.29 Insulin: No lancets (DreamNotesTOUCH DELICA PLUS LANCET) 30 gauge Test blood [...] hematochezia/melena. No heartburn o (more content not included)...[facility]02-10-2025 Telephone encounter Note* Telephone Encounter - Kameron Caruso MD - 06/24/2024 7:26 PM EST Noted Kameron Caruso MD [facility] [place]-2025 Miscellaneous Notes* Telephone Encounter - Kameron Caruso [...] this. Katia Grullon RN documented in this encounterSelect [facility] [place] Telephone encounter Note * Telephone Encounter - Katia Grullon RN - 06/24/2024 1:20 PM EST Patient calls and states that she is going to be going to [place] and will need medications for Malaria Patient does have appointment with provider tomorrow, but wanted to give provider heads up that she will be needing this. Katia Grullon RN [facility] [place]01-28-2025 Telephone encounter Note* Telephone Encounter - Naima Marshall RN - 06/11/2024 4:17 PM EST Pt called and is notified of providers results and instructions. Pt voices understanding. Naima Marshall RN [facility] [place]-28-2025 Miscellaneous Notes* Telephone Encounter - Naima Marshall RN - 06/11/2024 4:17 PM EST Pt called and is notified of providers results and instructions. Pt voices understanding. Naima Marshall RN * Telephone Encounter - Kameron Caruso MD - 06/11/2024 2:42 PM EST Please notify patient that her echocardiogram looks OK; continue with the meds as prescribed. Kameron Caruso MD documented in this encounterSelect [facility] [place] Telephone encounter Note * Telephone Encounter - [...] and pick them up. Naima Marshall RN [facility] [place]-28-2025 Miscellaneous Notes* Telephone Encounter - Naima Marshall [...] call and advise Pt. documented in this encounterSelect [facility] [place] Telephone encounter Note * Telephone Encounter - Kameron Caruso MD - 06/11/2024 2:42 PM EST Please notify patient that her echocardiogram looks OK; continue with the meds as prescribed. Kameron Caruso MD [facility] [place]-27-[facility]25 Telephone encounter Note* Telephone Encounter - Adenike Walton MA - 06/10/2024 2:12 PM EST Update pt on PCP's message below. Also FYI. FYI - Also to note, this was written in instructions on pt's AVS that was given to her. This information was highlighted on AVS given to her after her appt to start Eliquis 5 mg twice daily. Adenike Walton MA [facility] [place]01-27-[facility]25 Telephone encounter Note* Telephone Encounter - Naima Marshall RN - 06/10/2024 2:05 PM EST Called and left a message with her to have the Pt call back for providers message. Naima Marshall RN [facility] [place]01-[facility]25 Telephone encounter Note* Telephone Encounter - Kameron Caruso MD - 06/10/2024 1:45 PM EST I would recommend she start on the Eliquis now Kameron Caruso MD [facility] [place]01-27-2025 Telephone encounter Note* Telephone Encounter - Naima [...] taking it. Please call and advise Pt. [facility] [place]01-17-2025 Instructions* Patient Instructions* Kaemron Caruso MD - 05/31/2024 9:36 AM EST [...] medications and Echo results. documented in this encounterSelect [facility] [place] History of Present illness Narrative* Kameron Caruso MD - 05/31/2024 9:00 AM EST Chief Complaint Patient presents with: F/U 6 Month HPI October L Armand is a 78 year old female who presents here today for 6 month follow up. Here today for a 6 mo f/u. Going to [place] in June and [facility] [...] and Amaryl 2 mg daily. Follows with [facility]. Thyroid: Taking Synthroid 75 mcg [...] past year, follows with Dr. Park at [facility]. Past medical history, appointments, medications, [...] Past Histories independently gathered by the clinical work station support specialist and the remaining scribed note [...] AM. Adenike Walton MA documented in this encounterSelect [facility] [place]-[place]25 NoteHNO ID: [id number] Author: KAMERON CARUSO MD Service: ? Author Type: Physician Type: Progress Notes Filed: 05/31/2024 12:00 Note Text: Chief Complaint Patient presents with: F/U 6 Month HPI Lindsay Veronica Acuna is a 78 year old female who presents here today for 6 month follow up. Here today for a 6 mo f/u. Going to [place] in June and [facility] [...] and Amaryl 2 mg daily. Follows with [facility]. Thyroid: Taking Synthroid 75 mcg daily. No [...] past year, follows with Dr. Park at [facility]. Past medical history, appointments, medications, allergies reviewed. [...] 27.28 kg/m? General Appearance: (more content not included)...[facility] 11-28-2023 Instructions* Patient Instructions* Adenike Walton MA - 11/28/2023 9:58 AM EDT Reducing Metformin XR 500 mg to 2 tabs once daily. New prescription sent for this. Colorectal Surgeon from [facility], Dr. Santiago Grajeda. Phone #:[phone] documented in this encounterSelect [facility] [place] History of Present illness Narrative* Kameron Caruso [...] adenoma; duefor colonoscopy; will contact GI in [place] Lipid: Does not watch diet or exercise. [...] mouth daily before breakfast. blood sugar diagnostic (Aerospike ULTRA TEST) test strip Test Blood Sugar [...] kidney disease, unspecified CKD stage, 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 insulin use (HCC) - [...] Past Histories independently gathered by the clinical work station support specialist and the remaining scribed note [...] AM. Adenike Walton MA documented in this encounterSelect [facility] [place]24 NoteHNO ID: [id number] Author: KAMERON CARUSO MD Service: ? Author [...] due for colonoscopy; will contact GI in [place] Lipid: Does not watch diet or exercise. [...] alert, in no acute (more content not included)...[facility]05-28-2024 NoteHNO ID: [id number] Author: DAVID DUPREE APRN.COLOR CONTROL SUPERVISOR Service: ? Author Type: Nurse Practitioner Type: [...] and allergies reviewed. .Patient presents with: poison keay: all over x several weeks PAST MEDICAL [...] 1 tablet by mouth once daily. lancets (DreamNotesTOUCH DELICA PLUS LANCET) 30 gauge Test blood sugars 1 time daily. Dx: Type 2 DM Controlled E11.9. Insulin: no Chlorhexidine Gluconate (PERIDEX) 0.12 % solution Use 15 mL as instructed twice daily. Rinse around mouth for 30 seconds then expectorate blood sugar diagnostic (DreamNotesTOUCH ULTRA TEST STRIP) test strip Use to [...] linear pattern noted highlighted (more content not included)...[facility] 10-10-2023 History of Present illness Narrative* David Dupree, BAGGAGE INSPECTOR.[facility] - 10/10/2023 7:36 AM EDT Images from [...] 1 tablet by mouth once daily. lancets (DreamNotesTOUCH DELICA PLUS LANCET) 30 gauge Test blood [...] of care. This note was generated using [employer] software. It may contain errors in wording, punctuation, or spelling. David Dupree APRN.GARRETT documented in this encounterSelect [facility] [place]24 NoteHNO ID: [id number] Author: RADHA LEVINE APRN.GARRETT Service: ? Author Type: Nurse Practitioner Type: Progress Notes Filed: 09/29/2023 18:12 Note Text: This note was created using NoteWriter. Subjective Lindsay Acuna is a 77 year old female. 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 Denies fever or chills Denies malaise or fatigue Denies new lotions, soaps, or medicines States that she was working out in the garden the same day the rash erupted. The history is provided by the patient. No languages and literature instructor was used. Rash This is a [...] kg/m? Physical Exam Vitals (more content not included)...[facility]-17[facility] History of Present illness Narrative* Radha Levine APRN.COLOR CONTROL SUPERVISOR - 09/29/2023 2:32 PM EDT This note was created using NoteWriter. Subjective Lindsay Acuna is a 77 year old female. 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 Denies fever or chills Denies malaise or fatigue Denies new lotions, soaps, or medicines States that she was working out in the garden the same day the rash erupted. The history is provided by the patient. No languages and literature instructor was used. Rash This is a [...] 1 tablet by mouth once daily. lancets (DreamNotesTOUCH DELICA PLUS LANCET) 30 gauge Test blood [...] worsen. Radha Levine APRN.CNP documented in this encounterSelect [facility] [place] Telephone encounter Note * Telephone Encounter - Mj Glover APRN.CNP - 09/19/2023 9:46 AM EDT The following approved medication requests have been transmitted electronically. Requested Prescriptions Pending Prescriptions Disp Refills glimepiride (AMARYL) 2 mg tablet 90 tablet 3 Sig: Take 1 tablet by mouth daily with breakfast. Mj Glover APRN.CNP [facility] [place]05-07-2024 Miscellaneous Notes* Telephone Encounter - Mj Glover [...] you. Brigitte Dorsey RN. documented in this encounterSelect [facility] [place]-2024 Telephone encounter Note * Telephone Encounter - [...] Please advise. Thank you. Brigitte Dorsey RN. [facility] [place]-25-2023 Miscellaneous Notes* Telephone Encounter - Kameron Caruso MD - 04/08/2023 11:04 AM EST OK to refill as ordered Kameron Caruso MD * Telephone Encounter - Carmencita Baker LPN - 04/08/2023 10:57 AM EST Pt calling for refills. Last seen pcp 11/25/22. Next appt with pcp 05/30/23. documented in this encounterSelect [facility] [place]-14-2023 Miscellaneous Notes* Telephone Encounter - Kameron Caruso MD - 11/25/2022 11:58 AM EDT Done Kameron Caruso MD * Telephone Encounter - Jaiden Paulino RN - 11/25/2022 10:43 AM EDT Patient asking pcp if you can cancel the jardiance on her med list, because it shows up on her MyChart, and she does not take it. documented in this encounterSelect [facility] [place]01-[place]23 History of Present illness Narrative* Kameron Caruso [...] to Visit Medication Sig blood sugar diagnostic (DreamNotesTOUCH ULTRA TEST) test strip Test Blood Sugar [...] BY MOUTH ONCE DAILY WITH BREAKFAST lancets (DreamNotesTOUCH DELICA PLUS LANCET) 30 gauge Test blood sugars 1 time daily. Dx: Type 2 DM Controlled E11.9. Insulin: no Chlorhexidine Gluconate (PERIDEX) 0.12 % solution Use 15 mL as instructed twice daily. Rinse aroundmouth for 30 seconds then expectorate blood sugar diagnostic (BrightContextUCH ULTRA TEST STRIP) test strip Use to [...] Moderate Kameron Caruso MD documented in this encounterSelect [facility] [place]-[place]-2022 Miscellaneous Notes* Telephone Encounter - Mj Glover [...] LPN * Telephone Encounter - [place]ieluis Gallegos [facility] [place]11/[place] 8:49 AM EST Patient has been identified by name and date of : Yes Requested Prescriptions No prescriptions requested or ordered in this encounter RX INSTRUCTIONS: Patient aware RX will be sent to pharmacy. No need to notify patient. [facility] documented in this encounterSelect [facility] [place] Instructions* Patient Instructions* Emma Sotomayor APRN.CNP - 03/02/2022 11:11 AM EDT Start prednisone taper, take with food. May use Tylenol while taking the steroid. May use flexeril 3 times daily as needed for muscle tension. May make you sleepy. You were given Toradol in the office. Apply heat to the area. Follow up if symptoms do not improve. documented in this encounterSelect [facility] [place]-[place] History of Present illness Narrative* Emma Sotomayor [...] the legs. Has has not tried any ponz-eiq-havdvro analgesia, refers that she does not like [...] BY MOUTH ONCE DAILY WITH BREAKFAST lancets (DreamNotesTOUCH DELICA PLUS LANCET) 30 gauge Test blood [...] discussed and patient voices understanding. Emma Sotomayor APRN.COLOR CONTROL SUPERVISOR This note was partially generated using [employer] voice recognition system. Note was reviewed for accuracy. There may be minor misspellings or grammar miscues with [employer] voice recognition. documented in this encounterSelect [facility] [place]10-[facility]-2022 Miscellaneous Notes* Telephone Encounter - Michelle Hu [...] urine 11. : no Protocols used: Back [employer]-UTOON-OV documented in this encounterSelect Medical [facility], [place]08-30-2022 Miscellaneous Notes* Telephone Encounter - Jumana Modi [...] patient. Aditi Conley Pss documented in this encounterSelect [facility], [place]08-30-2022 Miscellaneous Notes* Telephone Encounter - Kameron Caruso [...] ONCE DAILY WITH BREAKFAST documented in this encounterSelect Medical [facility], [place]08-04-2022 Miscellaneous Notes* Telephone Encounter - Mj Glover [...] request. Brigitte Dorsey RN documented in this encounterSelect [facility] [place]07-12-2022 Miscellaneous Notes* Telephone Encounter - Mj Glover [...] to fill Please advise documented in this encounterSelect [facility] [place]07-12-2022 History of Present illness Narrative* Kameron Caruso MD - 11/23/2021 9:40 AM EDT Chief Complaint Patient presents with: F/U 6 Month HPI Lindsay L Armand is a 76 year old female who presents here today for a 6 month follow up. Pt here today for a 6 month follow up. Recently back from [facility]. Was told by Natives to not take [...] exercise. When she was in [facility] they had to go up 207 steps, [...] Past Histories independently gathered by the clinical work station support specialist and the remaining scribed note [...] AM. Adenike Walton Ma documented in this encounterSelect [facility] [place]-[facility]-2022 Miscellaneous Notes* Telephone Encounter - Kameron Caruso MD - 10/14/2021 9:34 AM EDT Order filed Kameron Caruso MD * Telephone Encounter - Adenike Walton Ma - 10/14/2021 9:20 AM EDT Pt stopped in the office and is requesting a new meter to be sent into [facility]. Pt uses OneTouch Meter. Adenike Walton Ma documented in this encounterSelect [facility] [place]05-[place]-2022 Miscellaneous Notes* Telephone Encounter - Kameron Caruso [...] where they were going to go to [facility] they have closed the border there and they are now going to [facility]. 1. Please advise if they have to [...] back. Shreya Barrios LPN documented in this encounterSelect Medical [facility] [place]05-[place]-2022 Miscellaneous Notes* Telephone Encounter - Jumana Modi [...] Please call and advise. documented in this encounterSelect [facility] [place]06-[place] History of Past illness Narrative* Problem Noted Date Resolved Date Hypertensive kidney disease with stage 3 chronic kidney disease 11/03/2020 11/05/2020 Diabetes mellitus with renal complications 05/0111/03/2020 PURE HYPERCHOLESTEROLEM 11/27/19 14 DIABETES MELLITUS TYPE II-UNCOMPL 11/26/2013 documented as of this encounter (statuses as of 09/20/2021) [facility] [place] History of Past illness Narrative* Problem Noted Date Resolved Date Hypertensive kidney disease with stage 3 chronic kidney disease 11/03/2020 11/05/2020 Diabetes mellitus with renal complications 05/0111/03/2020 PURE HYPERCHOLESTEROLEM 11/27/19 14 DIABETES MELLITUS TYPE II-UNCOMPL 11/26/2013 documented as of this encounter (statuses as of 10/12/2021) [facility] [place] History of Past illness Narrative* Problem Noted Date Resolved Date Hypertensive kidney disease with stage 3 chronic kidney disease 11/03/2020 11/05/2020 Diabetes mellitus with renal complications 05/0111/03/2020 PURE HYPERCHOLESTEROLEM 11/27/19 14 DIABETES MELLITUS TYPE II-UNCOMPL 11/26/2013 documented as of this encounter (statuses as of 10/14/2021) [address]22-2021 History of Past illness Narrative* Problem Noted Date Resolved Date Hypertensive kidney disease with stage 3 chronic kidney disease 11/03/2020 11/05/2020 Diabetes mellitus with renal complications 05/0111/03/2020 PURE HYPERCHOLESTEROLEM 11/27/19 14 DIABETES MELLITUS TYPE II-UNCOMPL 11/26/2013 documented as of this encounter (statuses as of 11/23/2021) [facility] [place] History of Past illness Narrative* Problem Noted Date Resolved Date Hypertensive kidney disease with stage 3 chronic kidney disease 11/03/2020 11/05/2020 Diabetes mellitus with renal complications 05/0111/03/2020 PURE HYPERCHOLESTEROLEM 11/27/19 14 DIABETES MELLITUS TYPE II-UNCOMPL 11/26/2013 documented as of this encounter (statuses as of 11/23/2021) [facility] [place] History of Past illness Narrative* Problem Noted Date Resolved Date Hypertensive kidney disease with stage 3 chronic kidney disease 11/03/2020 11/05/2020 Diabetes mellitus with renal complications 05/0111/03/2020 PURE HYPERCHOLESTEROLEM 11/27/19 14 DIABETES MELLITUS TYPE II-UNCOMPL 11/26/2013 documented as of this encounter (statuses as of 12/16/2021) [facility] [place] History of Past illness Narrative* Problem Noted Date Resolved Date Hypertensive kidney disease with stage 3 chronic kidney disease 11/03/2020 11/05/2020 Diabetes mellitus with renal complications 05/0111/03/2020 PURE HYPERCHOLESTEROLEM 11/27/19 14 DIABETES MELLITUS TYPE II-UNCOMPL 11/26/2013 documented as of this encounter (statuses as of 01/11/2022) [facility] [place] History of Past illness Narrative* Problem Noted Date Resolved Date Hypertensive kidney disease with stage 3 chronic kidney disease 11/03/2020 11/05/2020 Diabetes mellitus with renal complications 05/0111/03/2020 PURE HYPERCHOLESTEROLEM 11/27/19 14 DIABETES MELLITUS TYPE II-UNCOMPL 11/26/2013 documented as of this encounter (statuses as of 01/11/2022) [facility] [place] History of Past illness Narrative* Problem Noted Date Resolved Date Hypertensive kidney disease with stage 3 chronic kidney disease 11/03/2020 11/05/2020 Diabetes mellitus with renal complications 05/0111/03/2020 PURE HYPERCHOLESTEROLEM 11/27/19 14 DIABETES MELLITUS TYPE II-UNCOMPL 11/26/2013 documented as of this encounter (statuses as of 03/02/2022) [facility] [place] History of Past illness Narrative* Problem Noted Date Resolved Date Hypertensive kidney disease with stage 3 chronic kidney disease 11/03/2020 11/05/2020 Diabetes mellitus with renal complications 05/0111/03/2020 PURE HYPERCHOLESTEROLEM 11/27/19 14 DIABETES MELLITUS TYPE II-UNCOMPL 11/26/2013 documented as of this encounter (statuses as of 03/02/2022) [facility] [place] History of Past illness Narrative* Problem Noted Date Resolved Date Hypertensive kidney disease with stage 3 chronic kidney disease 11/03/2020 11/05/2020 Diabetes mellitus with renal complications 05/0111/03/2020 PURE HYPERCHOLESTEROLEM 11/27/19 14 DIABETES MELLITUS TYPE II-UNCOMPL 11/26/2013 documented as of this encounter (statuses as of 04/11/2022) [facility] [place] of Past illness Narrative* Problem Noted Date Resolved Date Hypertensive kidney disease with stage 3 chronic kidney disease 11/03/2020 11/05/2020 Diabetes mellitus with renal complications 05/0111/03/2020 PURE HYPERCHOLESTEROLEM 11/27/19 14 DIABETES MELLITUS TYPE II-UNCOMPL 11/26/2013 documented as of this encounter (statuses as of 05/27/2022) [facility] [place] History of Past illness Narrative* Problem Noted Date Diagnosed Date Resolved Date Hypertensive kidney disease with stage 3 chronic kidney disease 11/03/2020 11/05/2020 Diabetes mellitus with renal complications 05/01/2014 11/03/2020 PURE HYPERCHOLESTEROLEM 07/1 09/2013 DIABETES MELLITUS TYPE II-UNCOMPL 11/26/2013 documented as of this encounter (statuses as of 11/25/2022) [facility] [place] History of Past illness Narrative* Problem Noted Date Diagnosed Date Resolved Date Hypertensive kidney disease with stage 3 chronic kidney disease 11/03/2020 11/05/2020 Diabetes mellitus with renal complications 05/01/2014 11/03/2020 PURE HYPERCHOLESTEROLEM 07/1 09/2013 DIABETES MELLITUS TYPE II-UNCOMPL 11/26/2013 documented as of this encounter (statuses as of 04/08/2023) [facility] [place] History of Past illness Narrative* Problem Noted Date Diagnosed Date Resolved Date Hypertensive kidney disease with stage 3 chronic kidney disease 11/03/2020 11/05/2020 Diabetes mellitus with renal complications 05/01/2014 11/03/2020 PURE HYPERCHOLESTEROLEM 11/12 DIABETES MELLITUS TYPE II-UNCOMPL 11/26/2013 documented as of this encounter (statuses as of 04/08/2023) [facility]onDischarge summary Author Pieter [facility] Note Date/Time August 02, 2024 1:1 6pm [facility] Medical Records Department [address] [place] [address] Emergency Department Summary 08/02/24 MR#: [id number] Acct: [id number] Name: LINDSAY ACUNA Rep #:[id number] : [...] better, but she is "on round 2." [facility] Medical History Paroxysmal atrial fibrillation with [...] 71.4 H Lymph % (Auto) 17.9 L [place] % (Auto) 8.9 Eos % (Auto) 1.0 [...] on 08/02/2024 at 1250 hours. Reading Location: [facility] Head/Neck CTA 08/02/24 12:24 IMPRESSION: RIGHT CAROTID: Mild degree of calcific plaque at the origin of the right internal carotid artery. LEFT CAROTID: Mild degree of calcific plaque at the origin of the left internal carotid artery. VERTEBRALS: Dominant left vertebral artery INTRACRANIAL: Unremarkable Other impression: No significant stenosis seen. [facility] R[facility] Rhythm Strip: A-fib Rate: 90 Ectopy: None EKG Initial EKG: Attestation: I personally reviewed and interpreted this EKG as follows: Interpretation: No Acute Injury Pattern, Atrial Fibrillation and Non-Specific ST Changes Management Discussion w/another healthcare provider: Director Of Integrated Marketing ([facility] stroke neurology) and Radiologist Stroke Documentation [...] min), Including time spent:, Discussing w/Patient &/or Family/Branch Officer, Discussing w/Consultants, Arranging Admission or Transfer and [...] MD [Primary Care Provider] - Print Language: Cambodian Disposition Disposition: Acute Care Hospital Discharge Location: [facility] What to do if you have Problems For any increased pain, shortness of breath, bleeding, nausea or vomiting, chestpain, or any unexpected problems, contact your Primary Care Provider. Call [facility] ([phone]) or report to the closest Emergency Room. Call 911 if necessary. 08/02/24 1316 <Electronically signed by Pieter Morgan MD> Cosigner Signature (if applicable): CC: Dr. Kameron Caruso MD ~ Signed [facility] Work Phone: Evaluation note* Diagnosis Need for vaccination- Primary Need for prophylactic vaccination and inoculation against unspecified single disease [facility] Diagnosis Type 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, unspecified CKD stage, 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 insulin use (HCC)- Primary Essential hypertension, benign Hyperlipidemia, unspecified hyperlipidemia type Stage 3b chronic kidney disease (HCC) Hypothyroidism, unspecified type Memory loss [facility] Diagnosis Type 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, unspecified CKD stage, unspecified whether fci insulin use (HCC)- Primary [facility] Diagnosis Hyperlipidemia, unspecified hyperlipidemia type Essential hypertension, benign Type 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, unspecified CKD stage, unspecified whether fci insulin use (HCC) [facility] Type 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, unspecified CKD stage, unspecified whether fci insulin use (HCC) Essential hypertension, benign Hyperlipidemia, unspecified hyperlipidemia type [facility] Diagnosis Acute midline low back pain without sciatica- Primary [facility] Diagnosis Type 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, unspecified CKD stage, 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 insulin use (HCC)- Primary [facility] Diagnosis Essential hypertension, benign- Primary Hypothyroidism, unspecified type Type 2 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, without long-term current use of insulin (HCC) Hyperlipidemia, unspecified hyperlipidemia type Chronic kidney disease, stage 3a (HCC) Edema of left lower leg Wellness examination documented in this encounter [facility] note* Diagnosis Type 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, unspecified CKD stage, unspecified whether fci insulin use (HCC) documented in this encounter [facility] note* Diagnosis Allergic contact dermatitis due to plant- Primary Contact dermatitis and other eczema due to plants (except food) documented in this encounter [facility] note* Diagnosis Rash- Primary Rash and other nonspecific skin eruption documented in this encounter [facility] note* Diagnosis Type 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, unspecified CKD stage, unspecified whether fci insulin use (HCC)- Primary Essential hypertension, benign Chronic kidney disease, stage 3a (HCC) Hyperlipidemia, unspecified hyperlipidemia type Hypothyroidism, unspecified type Edema of left lower leg Memory loss documented in this encounter [facility] note* Diagnosis Essential hypertension, benign- Primary Type 2 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, without long-term current use of insulin (HCC) Chronic kidney disease, stage 3a (HCC) Hyperlipidemia, unspecified hyperlipidemia type Hypothyroidism, unspecified type Edema of left lower leg Memory loss Urinary incontinence, unspecified type Irregular heart beat Cardiac dysrhythmia, unspecified Atrial fibrillation, unspecified type (HCC) documented in this encounter [facility] note* Diagnosis Atrial fibrillation, unspecified type (HCC)- Primary Hypothyroidism, unspecified type Need for malaria prophylaxis documented in this encounter [facility] note* Diagnosis History of traveler's diarrhea- Primary Personal history of other diseases of digestive system documented in this encounter [facility] note* Diagnosis History of traveler's diarrhea Personal history of other diseases of digestive system documented in this encounter [facility] noteNo assessment information availableWHenry County [facility] Work Phone: Evaluation note* Diagnosis Acute ischemic right MCA stroke- Primary Unspecified cerebral artery occlusion with cerebral infarction Cerebrovascular accident (CVA), unspecified mechanism Renal disease (High Serum Creatinine) Unspecified disorder of kidney and ureter Type 2 diabetes mellitus with hyperglycemia Type II or unspecified type diabetes mellitus without mention of complication, not stated as uncontrolled [facility] N[facility]ative No data available for this section Tyler yDelawn Reason for referral (narrative)* Outpatient Procedure (Routine) - Pending Review Specialty Diagnoses / Procedures Referred By Qiana almodovar Referred To Contact [facility] Diagnoses Atrial fibrillation, unspecified type (HCC) Procedures ECHO ECHO TTHRC R-T 2D W/WOM-MODE COMPL SPEC&COLR D Kameron Caruso MD [address] [place] [address] [facility] [address] [address] Referral ID Status Reason Start Date Expiration Date Visits Requested Visits Authorized [id number] Pending Review Auto-Generat ed Referral 05/31/2024 05/31/2025 1 1 * Outpatient Procedure (Routine) - New Request Specialty Diagnoses / Procedures Referred By Qiana almodovar Referred To Contact [facility] Diagnoses Irregular heart beat Procedures ECG COMPLETE ECG ROUTINE ECG W/LEAST 12 LDS W/I&R Kameron Caruso MD [address] [place] [address] [address] Referral ID Status Reason Start Date Expiration Date Visits Requested Visits Authorized [id number] New Request Auto-Generat ed Referral 05/31/2024 05/31/2025 1 1 [facility]No reason for referral information availableWHenry County Hospital Work Phone: Reason for visit Narrative* Auth/Cert Specialty Diagnoses / Procedures Referred By Qiana almodovar Referred To Contact Diagnoses Acute ischemic right MCA stroke Cerebrovascular Accident (Level A Ishemic Stroke) Prema Rodgers MD [address] [place] [address] Phone: tel: fax: [facility] [address] [place] [address] Referral ID Status Reason Start Date Expiration Date Visits Re quested Visits Authorized [id number] 1 1 [facility] Summary Purpose Family History No Family History Records Found Relationship Condition Age at Onset Recorded Date/T monse mother Diabetes mellitus Unknown Hypertension Unknown Psychiatric disorder Unknown grandmother Malignant neoplasm Unknown sister Disorder of thyroid Unknown Advance Directives No Advanced Directives Records FoundDocuments on File Type Date Recorded Patient Section Leader 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 Advance Directives and Living Will Power of Reacher Latest Code Status on File Code Status Date Activated Date Inactivated Comments Full Code 01/09/2019 10:16 AM Latest Code Status on File Code Status Date Activated Date Inactivated Comments Full Code 10/16/2019 9:16 AM Full Code 01/09/2019 10:16 AM 01/09/2019 2:23 PM Documents on File Type Date Recorded Patient Section Leader 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 Advance Directive(s) 11/07/2018 6:45 AM Advance Directive(s) 09/29/2015 10:09 PM Advance Directive Response Recorded Date/ Time Living Will No August 02, 2024 12:46pm Do you have a Healthcare Power of Reacher? No August 02, 2024 12:46pm Date Activated [...] patient had a polyp identified by on {time:07822}. Biopsies {are/were w not:9034} taken. The patient's usual bowel pattern is {bowel pattern:99126}. Bowel movements {bowel changes:72247} . {abd pain:61519}. The patient has noted{bleeding with BM:26853}. The patient {does/do/not:49866} have a family history of colon polyps. The patient {does/do/not:12249} have a family history of colon cancer. [...] WORK September 10, 2024 5:0 0am [facility]IB ([facility]) October 02, 2024 9:29a m Chief Complaint [...] WORK October 01, 2024 5:00a m AFIB ([facility]) October 02, 2024 9:29a m LAB WORK October 08, 2024 5:00a m MONTHLY EXAM October 09, 2024 5:45p m SNF LAB WORK October 15, 2024 5:0 0am SNF LAB WORK October 22, 2024 5: 00am SNF LAB WORK October 23, 2024 5: 00am SNF LAB WORK October 29, 2024 5: 00am [...] WORK October 01, 2024 5:00a m AFIB ([facility]) October 02, 2024 9:29a m LAB WORK October 08, 2024 5:00a m MONTHLY EXAM October 09, 2024 5:45p m SNF LAB WORK October 15, 2024 5:0 0am SNF LAB WORK October 22, 2024 5: 00am SNF LAB WORK October 23, 2024 5: 00am SNF LAB WORK October 29, 2024 5: 00am NEW CONCERN October 30, 2024 6:00 pm SNF LAB WORK November 12, 2024 5:0 0am [...] WORK October 01, 2024 5:00a m AFIB ([facility]) October 02, 2024 9:29a m LAB WORK October 08, 2024 5:00a m MONTHLY EXAM October 09, 2024 5:45p m SNF LAB WORK October 15, 2024 5:0 0am SNF LAB WORK October 22, 2024 5: 00am NEW CONCERN October 22, 2024 12:4 5pm SNF LAB WORK October 23, 2024 5: 00am SNF LAB WORK October 29, 2024 5: 00am NEW CONCERN October 30, 2024 6:00 pm SNF LAB WORK November 12, 2024 5:0 0am [...] WORK October 01, 2024 5:00a m AFIB ([facility]) October 02, 2024 9:29a m LAB WORK October 08, 2024 5:00a m MONTHLY EXAM October 09, 2024 5:45p m SNF LAB WORK October 15, 2024 5:0 0am SNF LAB WORK October 22, 2024 5: 00am NEW CONCERN October 22, 2024 12:4 5pm SNF LAB WORK October 23, 2024 5: 00am SNF LAB WORK October 29, 2024 5: 00am FU VISIT October 29, 2024 7:15 pm NEW CONCERN October 30, 2024 6:00 pm SNF LAB WORK November 12, 2024 5:0 0am Chief Complaint Admit Date LAB WORK September 10, 2024 5:0 0am ADMISSION EXAM September 10, 2024 12: 49pm ADMISSION EXAM September 11, 2024 3:0 8pm LAB WORK September 17, 2024 5:00am LABWORK September 24, 2024 5:00a m LAB WORK September 29, 2024 5:44p m LAB WORK October 01, 2024 5:00a m AFIB ([facility]) October 02, 2024 9:29a m LAB WORK October 08, 2024 5:00a m MONTHLY EXAM October 09, 2024 5:45p m SNF LAB WORK October 15, 2024 5:0 0am SNF LAB WORK October 22, 2024 5: 00am NEW CONCERN October 22, 2024 12:4 5pm SNF LAB WORK October 23, 2024 5: 00am SNF LAB WORK October 29, 2024 5: 00am FU VISIT October 29, 2024 7:15 pm NEW CONCERN October 30, 2024 6:00 pm SNF LAB WORK November 05, 2024 5: 00am SNF LAB WORK November 12, 2024 5:0 0am SNF LAB WORK November 19, 2024 4:0 0am New Concern November 20, 2024 10:49 am LABWORK November 25, 2024 2:00 am SNF LAB WORK November 26, 2024 5: 20am New Concern November 28, 2024 4:43 pm SNF LAB WORK December 03, 2024 5: 00am Chief Complaint Admit Date LAB WORK September 10, 2024 5:0 0am ADMISSION EXAM September 10, 2024 12: 49pm ADMISSION EXAM September 11, 2024 3:0 8pm LAB WORK September 17, 2024 5:00am LABWORK September 24, 2024 5:00a m LAB WORK September 29, 2024 5:44p m LAB WORK October 01, 2024 5:00a m AFIB ([facility]) October 02, 2024 9:29a m LAB WORK October 08, 2024 5:00a m MONTHLY EXAM October 09, 2024 5:45p m SNF LAB WORK October 15, 2024 5:0 0am SNF LAB WORK October 22, 2024 5: 00am NEW CONCERN October 22, 2024 12:4 5pm SNF LAB WORK October 23, 2024 5: 00am SNF LAB WORK October 29, 2024 5: 00am FU VISIT October 29, 2024 7:15 pm NEW CONCERN October 30, 2024 6:00 pm SNF LAB WORK November 05, 2024 5: 00am SNF LAB WORK November 12, 2024 5:0 0am SNF LAB WORK November 19, 2024 4:0 0am New Concern November 20, 2024 10:49 am LABWORK November 25, 2024 2:00 am SNF LAB WORK November 26, 2024 5: 20am SNF LAB WORK December 03, 2024 5: 00am Chief Complaint Admit Date LAB WORK September 10, 2024 5:0 0am ADMISSION EXAM September 10, 2024 12: 49pm ADMISSION EXAM September 11, 2024 3:0 8pm LAB WORK September 17, 2024 5:00am LABWORK September 24, 2024 5:00a m LAB WORK September 29, 2024 5:44p m LAB WORK October 01, 2024 5:00a m AFIB ([facility]) October 02, 2024 9:29a m LAB WORK October 08, 2024 5:00a m MONTHLY EXAM October 09, 2024 5:45p m SNF LAB WORK October 15, 2024 5:0 0am SNF LAB WORK October 22, 2024 5: 00am NEW CONCERN October 22, 2024 12:4 5pm SNF LAB WORK October 23, 2024 5: 00am SNF LAB WORK October 29, 2024 5: 00am FU VISIT October 29, 2024 7:15 pm NEW CONCERN October 30, 2024 6:00 pm SNF LAB WORK November 05, 2024 5: 00am SNF LAB WORK November 12, 2024 5:0 0am SNF LAB WORK November 19, 2024 4:0 0am New Concern November 20, 2024 10:49 am LABWORK November 25, 2024 2:00 am SNF LAB WORK November 26, 2024 5: 20am New Concern November 28, 2024 4:43 pm SNF LAB WORK December 03, 2024 5: 00am SNF LAB WORK December 10, 2024 6: 20am SNF LAB WORK December 17, 2024 5 :00am SNF LAB WORK December 24, 2024 5:00am SNF LAB WORK December 31, 2024 4:00am MONTHLY EXAM December 31, 2024 12 :07pm Additional Source Comments INFORMATION SOURCE (unrecogn ized section and content) DATE CREATED AUTHOR 08/31/2018 [facility] ([place]) DATE CREATED AUTHOR AUTHOR'S ORGANIZ ATION 10/18/2019 [facility] DATE CREATED AUTHOR AUTHOR'S ORGANIZ ATION 08/04/2024 [facility] DATE CREATED AUTHOR AUTHOR[facility]S ORGANIZ ATION [facility] DATE CREATED AUTHOR AUTHOR'S ORGANIZ ATION 09/01/2024 [facility] DATE CREATED AUTHOR AUTHOR'S ORGANIZ ATION 10/13/2024 [facility] DATE CREATED AUTHOR AUTHOR'S ORGANIZ ATION 11/08/2024 [facility] DATE CREATED AUTHOR AUTHOR'S ORGANIZ ATION 02/01/2025 [facility] Source Comments (unrecognize d section and content) In the event this informatio n is protected by the Federal Confidentiality of Alcohol and Drug Abuse Patient Records regulations: The Federal rules restrict any use of the information to criminally investigate or prosecute any alcohol or drug abuse patient.[facility] the event this information is protected by the Federal Confidentiality of Alcohol and Drug Abuse Patient Records regulations: The Federal rules restrict any use of the information to criminally investigate or prosecute any alcohol or drug abuse patient.[facility] the event this information is protected by the Federal Confidentiality of Alcohol and Drug Abuse Patient Records regulations: The Federal rules restrict any use of the information to criminally investigate or prosecute any alcohol or drug abuse patient.[facility] the event this information is protected by the Federal Confidentiality of Alcohol and Drug Abuse Patient Records regulations: The Federal rules restrict any use of the information to criminally investigate or prosecute any alcohol or drug abuse patient.[facility] the event this information is protected by the Federal Confidentiality of Alcohol and Drug Abuse Patient Records regulations: The Federal rules restrict any use of the information to criminally investigate or prosecute any alcohol or drug abuse patient.[facility] the event this information is protected by the Federal Confidentiality of Alcohol and Drug Abuse Patient Records regulations: The Federal rules restrict any use of the information to criminally investigate or prosecute any alcohol or drug abuse patient.[facility] the event this information is protected by the Federal Confidentiality of Alcohol and Drug Abuse Patient Records regulations: The Federal rules restrict any use of the information to criminally investigate or prosecute any alcohol or drug abuse patient.[facility] the event this information is protected by the Federal Confidentiality of Alcohol and Drug Abuse Patient Records regulations: The Federal rules restrict any use of the information to criminally investigate or prosecute any alcohol or drug abuse patient.[facility] the event this information is protected by the Federal Confidentiality of Alcohol and Drug Abuse Patient Records regulations: The Federal rules restrict any use of the information to criminally investigate or prosecute any alcohol or drug abuse patient.[facility] the event this information is protected by the Federal Confidentiality of Alcohol and Drug Abuse Patient Records regulations: The Federal rules restrict any use of the information to criminally investigate or prosecute any alcohol or drug abuse patient.[facility] the event this information is protected by the Federal Confidentiality of Alcohol and Drug Abuse Patient Records regulations: The Federal rules restrict any use of the information to criminally investigate or prosecute any alcohol or drug abuse patient.[facility]In the event this information is protected by the Federal Confidentiality of Alcohol and Drug Abuse Patient Records regulations: The Federal rules restrict any use of the information to criminally investigate or prosecute any alcohol or drug abuse patient.[facility]In the event this information is protected by the Federal Confidentiality of Alcohol and Drug Abuse Patient Records regulations: The Federal rules restrict any use of the information to criminally investigate or prosecute any alcohol or drug abuse patient.[facility] the event this information is protected by the Federal Confidentiality of Alcohol and Drug Abuse Patient Records regulations: The Federal rules restrict any use of the information to criminally investigate or prosecute any alcohol or drug abuse patient.[facility]In the event this information is protected by the Federal Confidentiality of Alcohol and Drug Abuse Patient Records regulations: The Federal rules restrict any use of the information to criminally investigate or prosecute any alcohol or drug abuse patient.[facility]In the event this information is protected by the Federal Confidentiality of Alcohol and Drug Abuse Patient Records regulations: The Federal rules restrict any use of the information to criminally investigate or prosecute any alcohol or drug abuse patient.[facility]In the event this information is protected by the Federal Confidentiality of Alcohol and Drug Abuse Patient Records regulations: The Federal rules restrict any use of the information to criminally investigate or prosecute any alcohol or drug abuse patient.[facility]In the event this information is protected by the Federal Confidentiality of Alcohol and Drug Abuse Patient Records regulations: The Federal rules restrict any use of the information to criminally investigate or prosecute any alcohol or drug abuse patient.[facility]In the event this information is protected by the Federal Confidentiality of Alcohol and Drug Abuse Patient Records regulations: The Federal rules restrict any use of the information to criminally investigate or prosecute any alcohol or drug abuse patient.[facility]In the event this information is protected by the Federal Confidentiality of Alcohol and Drug Abuse Patient Records regulations: The Federal rules restrict any use of the information to criminally investigate or prosecute any alcohol or drug abuse patient.[facility]In the event this information is protected by the Federal Confidentiality of Alcohol and Drug Abuse Patient Records regulations: The Federal rules restrict any use of the information to criminally investigate or prosecute any alcohol or drug abuse patient.[facility]In the event this information is protected by the Federal Confidentiality of Alcohol and Drug Abuse Patient Records regulations: The Federal rules restrict any use of the information to criminally investigate or prosecute any alcohol or drug abuse patient.[facility]In the event this information is protected by the Federal Confidentiality of Alcohol and Drug Abuse Patient Records regulations: The Federal rules restrict any use of the information to criminally investigate or prosecute any alcohol or drug abuse patient.[facility]In the event this information is protected by the Federal Confidentiality of Alcohol and Drug Abuse Patient Records regulations: The Federal rules restrict any use of the information to criminally investigate or prosecute any alcohol or drug abuse patient.[facility]In the event this information is protected by the Federal Confidentiality of Alcohol and Drug Abuse Patient Records regulations: The Federal rules restrict any use of the information to criminally investigate or prosecute any alcohol or drug abuse patient.[facility]onIn the event this information is protected by the Federal Confidentiality of Alcohol and Drug Abuse Patient Records regulations: The Federal rules restrict any use of the information to criminally investigate or prosecute any alcohol or drug abuse patient.[facility] [place]onIn the event this information is protected by the Federal Confidentiality of Alcohol and Drug Abuse Patient Records regulations: The Federal rules restrict any use of the information to criminally investigate or prosecute any alcohol or drug abuse patient.[facility] [place]on[place] the event this information is protected by the Federal Confidentiality of Alcohol and Drug Abuse Patient Records regulations: The Federal rules restrict any use of the information to criminally investigate or prosecute any alcohol or drug abuse patient.[facility] [place] Reason for Visit (unrecogniz ed section and [...] Comments request for medication Reason Comments Tyler [facility] requesting verbal agree to f [facility] Care Teams (unrecognized sec tion and content) Dental Practice Manager Relationship Specialty Start Date End Date Kameron Caruso MD [address] [place] [address] PCP - General Family Practice 09/21/15 Dental Practice Manager Relationship Specialty Start Date End Date Kameron Caruso MD [address] [place] [address] PCP - General Family Practice 09/21/15 Dental Practice Manager Relationship Specialty Start Date End Date Kameron Caruso MD [address] [place] [address] PCP - General Family Practice 09/21/15 Dental Practice Manager Relationship Specialty Start Date End Date Kameron Caruso MD [address] [place] [address] PCP - General Family Practice 09/21/15 Dental Practice Manager Relationship Specialty Start Date End Date Kameron Caruso MD [address] [place] [address] PCP - General Family Practice 09/21/15 Dental Practice Manager Relationship Specialty Start Date End Date Kameron Caruso MD [address] [facility] [place] [address] PCP - General Family Practice 09/21/15 Dental Practice Manager Relationship Specialty Start Date End Date Kameron Caruso MD [address] [facility] [place] [address] PCP - General Family Medicine 09/21/15 Dental Practice Manager Relationship Specialty Start Date End Date Kameron Caruso MD [address] [facility] [place] [address] PCP - General Family Medicine 09/21/15 Dental Practice Manager Relationship Specialty Start Date End Date Kameron Caruso MD [address] [facility] [place] [address] PCP - General Family Medicine 09/21/15 Dental Practice Manager Relationship Specialty Start Date End Date Kameron Caruso MD [address] [facility] [place] [address] PCP - General Family Medicine 09/21/15 Dental Practice Manager Relationship Specialty Start Date End Date Kameron Caruso MD [address] [facility] [place] [address] PCP - General Family Medicine 09/21/15 Dental Practice Manager Relationship Specialty Start Date End Date Kameron Caruso MD [address] [facility] [place] [address] PCP - General Family Medicine 09/21/15 Dental Practice Manager Relationship Specialty Start Date End Date Kameron Caruso MD [address] [facility] [place] [address] PCP - General Family Medicine 09/21/15 Dental Practice Manager Relationship Specialty Start Date End Date Kameron Caruso MD [address] [place] [address] PCP - General Family Medicine 09/21/15 Dental Practice Manager Relationship Specialty Start Date End Date Kameron Caruso MD [address] [place] [address] PCP - General Family Medicine 09/21/15 Dental Practice Manager Relationship Specialty Start Date End Date Kameron Caruso MD [address] [place] [address] PCP - General Family Medicine 09/21/15 Emma Sotomayor APRN.COLOR CONTROL SUPERVISOR [address] [place] [address] Vice President Regulatory Family Medicine 04/21/24 Mj Glover APRN.COLOR CONTROL SUPERVISOR [address] [place] [address] Vice President Regulatory Family Medicine 04/30/24 Dental Practice Manager Relationship Specialty Start Date End Date Kameron Caruso MD [address] [place] [address] PCP - General Family Medicine 09/21/15 Emma Sotomayor BAGGAGE INSPECTOR.COLOR CONTROL SUPERVISOR [address] [place] [address] Vice President Regulatory Family Medicine 04/21/24 Mj Glover APRN.COLOR CONTROL SUPERVISOR [address] [place] [address] Vice President Regulatory Family Medicine 04/30/24 Dental Practice Manager Relationship Specialty Start Date End Date Kameron Caruso MD [address] [facility] [place] [address] PCP - General Family Medicine 09/21/15 Emma Sotomayor APRN.COLOR CONTROL SUPERVISOR [address] [facility] [place] [address] Vice President Regulatory Family Medicine 04/21/24 Mj Glover APRN.COLOR CONTROL SUPERVISOR [address] [facility] [place] [address] Vice President Regulatory Family Medicine 04/30/24 Dental Practice Manager Relationship Specialty Start Date End Date Kameron Caruso MD [address] [facility] [place] [address] PCP - General Family Medicine 09/21/15 Emma Sotomayor APRN.COLOR CONTROL SUPERVISOR [address] [facility] [place] [address] Vice President Regulatory Family Medicine 04/21/24 Mj Glover APRN.COLOR CONTROL SUPERVISOR [address] [facility] [place] [address] Vice President Regulatory Family [facility] 04/30/24 Dental Practice Manager Relationship Specialty Start Date End Date Kameron Caruso MD [address] [facility] [place] [address] PCP - General Family Medicine 09/21/15 Emma Sotomayor APRN.COLOR CONTROL SUPERVISOR [address] [facility] [place] [address] Vice President Regulatory Family Medicine 04/21/24 Mj Glover APRN.COLOR CONTROL SUPERVISOR [address] [facility] [place] [address] Vice President Regulatory Family Medicine 04/30/24 Dental Practice Manager Relationship Specialty Start Date End Date Kameron Caruso MD [address] [place] [address] PCP - General Family Medicine 09/21/15 Emma Sotomayor, JASIEL.COLOR CONTROL SUPERVISOR [address] [place] [address] Vice President Regulatory Family Medicine 04/21/24 Mj Glover APRN.COLOR CONTROL SUPERVISOR [address] [place] [address] [facility] 04/[facility] Dental Practice Manager Relationship Specialty Start Date End Date Kameron Caruso MD [address] [place] [address] PCP - General Family Medicine 09/21/15 Emma Sotomayor, BAGGAGE INSPECTOR.COLOR CONTROL SUPERVISOR [address] [place] [address] Vice President Regulatory Family Medicine 04/21/24 Mj Glover APRN.COLOR CONTROL SUPERVISOR [address] [place] [address] Vice President Regulatory [facility] 04/30/24 Team Status: Active Member Role Status Dates Dr. Kameron Caruso MD Primary Care Provider Active Team Status: Inactive Member Role Status Dates Dr. Kameron Caruso MD Primary Care Provider Active Start: August 02, 2024 End: August 02, 2024 Dr. Pieter Morgan MD Emergency Provider Active Start: August 02, 2024 End: August 02, 2024 Dental Practice Manager Relationship Specialty Start Date End Date Kameron Caruso MD [address] [place] [address] PCP - General Family Medicine 08/03/24 Dental Practice Manager Relationship Specialty Start Date End Date Kameron Crauso MD [address] [place] [address] PCP - General Family Medicine 09/21/15 Emma Sotomayor, BAGGAGE INSPECTOR.COLOR CONTROL SUPERVISOR [address] [place] [address] Vice President Regulatory Family Medicine 04/21/24 Mj Glover, BAGGAGE INSPECTOR.COLOR CONTROL SUPERVISOR [address] [place], [place] [address] Vice President Regulatory Family Medicine 04/30/24 Team Status: Inactive Member [...] End: September 11, 2024 Bret Snyder NP, HERB DOCTOR-C Attending Provider Active Start: September 11, 2024 [...] End: October 09, 2024 Bret Snyder NP, HERB DOCTOR-C Attending Provider Active Start: October 09, 2024 End: October 09, 2024 Team Status: Active Member Role/Relationship Status Dates Dr. Kameron Caruso MD Primary Care Provider Active Start: October 15, 2024 Safia VAGRAS MD Attending Provider Active Start: October 15, [...] 2024 End: October 30, 2024 Bret Snyder HERB DOCTOR, HERB DOCTOR-C Attending Provider Active Start: October 30, 2024 [...] 2024 End: October 22, 2024 Bret Snyder HERB DOCTOR, HERB DOCTOR-C Attending Provider Active Start: October 22, 2024 [...] 2024 End: October 30, 2024 Bret Snyder HERB DOCTOR, HERB DOCTOR-C Attending Provider Active Start: October 30, 2024 [...] End: October 30, 2024 Bret Snyder NP, HERB DOCTOR-C Attending Provider Active Start: October 30, 2024 [...] 2024 End: September 11, 2024 Bret Snyder NP HERB DOCTOR-C Attending Provider Active Start: September 11, 2024 [...] 2024 End: October 09, 2024 Bret Snyder HERB DOCTOR, HERB DOCTOR-C Attending Provider Active Start: October 09, 2024 [...] End: October 22, 2024 Bret Snyder NP, HERB DOCTOR-C Attending Provider Active Start: October 22, 2024 [...] 2024 End: November 20, 2024 Bret Snyder HERB DOCTOR, HERB DOCTOR-C Attending Provider Active Start: November 20, 2024 [...] 2024 End: November 28, 2024 Bret Snyder HERB DOCTOR, HERB DOCTOR-C Attending Provider Active Start: November 28, 2024 [...] RN) 0849 (Given - Provider: Eneida Cespedes RN)204 (Given - Provider: Shanna Catalan RN) 08 [...] NEEDED, Starting on 08/05/24 at 0728, Until Idane 08/15/24 at 1259, Constipation If No Bowel [...] needed, contact pharmacy or obtain from [facility] cart ++ diphenhydrAMINE (BENADRYL) tablet 25 [...] glucose is greater than 200mg/dl, then notify pump house engineer. And BLOOD GLUCOSE (POC DEVICE) (CANCELED) Routine, [...] needed, contact pharmacy or obtain from [facility] cart ++ And glucose (GLUTOSE) 40 % oral gel 1-2 TubeJump to med 1-2 Tube, Oral, ADMINISTER DIRECTED, Starting on 08/03/24 at 1300, Until Idane 08/15/24 at 1259, Blood glucose <80 mg/dL, [...] 1301, Until Specified, Who to Notify: Electrical Technician Instructor, For all Blood Glucose LESS THAN 80 mg/dl, notify Electrical Technician Instructor after treatment per Hypoglycemia in Non- Adults [...] BE BASED ON THE PRIMARY CLINICAL RECORDS. [facility]. provides no warranty or guarantee of the accuracy or completeness of information in this document.
[2025-02-04 06:40] LABS: Hematocrit 38.3 % (37-47); Hemoglobin 12.4 g/dL (12.0-15.0); Immature Granulocytes Count 0.030 X10^3/uL (0.0-0.0); Mean Corp Hgb Conc 32.4 g/dL (32-36); Mean Corpuscular Volume 90.3 fL (81-99); Mean Platelet Vol. 11.9 fl (6.2-12.0); NRBC Flagged by Analyzer 0 % (0-5); Platelet Count 278 K/mm3 (150-450); RBC Distribution Width CV 14.5 % (11.6-14.6); RBC Distribution Width SD 47.8 fl (35.1-43.9); Red Blood Count 4.24 M/mm3 (4.2-5.4); White Blood Count 8.4 K/mm3 (4.4-11.0)
[2025-02-04 06:47] LABS: Anion Gap 12 (5-15); BUN 15 mg/dL (4-19); BUN/Creat Ratio 21.0 RATIO (10-20); Calcium,Total 9.0 mg/dL (7.6-11.0); Carbon Dioxide 23.5 mmol/L (21.0-32.0); Chloride 103 mmol/L (98-108); Glucose 141 mg/dL (70-99); Potassium 3.4 mmol/L (3.3-5.1)
== END ==
LOC: OLS.WHLTCC 05:07
PROVIDERS: PCP Family Medicine; Referring Provider Internal Medicine; Visit Provider Internal Medicine
DX: I10 Essential (primary) hypertension (principal); I69.354 Hemiplegia and hemiparesis following cerebral infarction affecting left non-dominant side; I69.391 Dysphagia following cerebral infarction; E11.9 Type 2 diabetes mellitus without complications
CPT/HCPCS: 36415; 80048; 85025

== ENCOUNTER → 2025-02-11 06:03 | Outpatient (REF) | payer MEDICARE, SELFPAY ==
--- OUTSIDE RECORDS SUMMARY | 2024-08-15 13:46 | XMS RPT_ITS ---
Author Name Auto Generated Organization OHIP Care Team Providers Care Unix System Administrator Name Role Phone KAMERON CARUSO Primary Care Unavailable MADONNA, LUCINDA S Admitting Unavailable MADONNA, LUCINDA S Attending Unavailable SENA ROBLES Referring Unavailable CONSULT, GASTROENTEROLOGY Consulting ISABELA Nunn Attending Unavailable NEGRO RAMOS Admitting Unavailable RENEE HOFFMANN Referring Unavailable LEO LAWSON, DR MELO Primary Care Unavailab shital SLATER MD, DR REECE Consulting Unavailab SILVINO Monzon DO Attending Unavailable SILVINO HA DO Admitting Unavailable NANDO CASTLE DO Consulting Unavailable SUDARSHAN ACHARYA, AMI Hwang Consulting Unavailjair GIBSON PhD, SEBAS Zamudio Consulting Unavailable FRANCISCO, ROBERTA Attending Unavailable FRANCISCO, ROBERTA Admitting Unavailable AUBRIE, CATA Attending Unavailable AUBRIE, CATA Admitting Unavailable KAMERON CARUSO Primary Care Unavailable KAMERON CARUSO Referring Unavailable EMMA SOTOMAYOR Attending UnavailKAMERON Pereira Primary Care Unavailable KAMERON CARUSO Attending Unavailable KAMERON CARUSO Primary Care Unavailable KAMERON CARUSO Primary Care Unavailable KAMERON CARUSO Referring Unavailable KAMERON CARUSO Primary Care Unavailable KAMERON CARUSO Attending Unavailable PROBLEMS DATE TYPE CONDITION / CODE ATTENDING STATUS [facility] 08/15/2024 Unknown Cerebral infarct ion, unspecified / I63.9(ICD-10) [facility] 08/15/2024 Unknown Type 2 diabetes mellitus without complications / E11.9(ICD-10) [facility] 08/15/2024 Unknown Dysphagia, unspecified / R13.10(ICD-10) [facility] 08/15/2024 Unknown Hyperlipidemia, unspecified / E78.5(ICD-10) [facility] 08/15/2024 Unknown Essential (prima ry) hypertension / I10(ICD-10) [facility] 08/15/2024 Unknown Unspecified osteoarthritis, unspecified site / M19.90(ICD-10) [facility] 08/15/2024 Final Diagnosis (Discharge) 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 / I69.154(ICD-10) [facility] 08/15/2024 Final Diagnosis (Discharge) Candidal stomatitis / B37.0(ICD-10) [facility] 08/15/2024 Final Diagnosis (Discharge) Hypo-osmolality and hyponatremia / E87.1(ICD-10) [facility] 08/15/2024 Final Diagnosis (Discharge) Facial weakness following nontraumatic intracerebral hemorrhage / I69.192(ICD-10) [facility] 08/15/2024 Final Diagnosis (Discharge) Other speech and language deficits following nontraumatic intracerebral hemorrhage / I69.128(ICD-10) [facility] 08/15/2024 Final Diagnosis (Discharge) Slurred speech / R47.81(ICD-10) [facility] 08/15/2024 Final Diagnosis (Discharge) Dysphagia following nontraumatic intracerebral hemorrhage / I69.191(ICD-10) [facility] 08/15/2024 Final Diagnosis (Discharge) Type 2 diabetes mellitus without complications / E11.9(ICD-10) [facility] 08/15/2024 Final Diagnosis (Discharge) Unspecified atrial fibrillation / I48.91(ICD-10) [facility] 08/15/2024 Final Diagnosis (Discharge) Unspecified osteoarthritis, unspecified site / M19.90(ICD-10) [facility] 08/15/2024 Final Diagnosis (Discharge) Unspecified abnormalities of gait and mobility / R26.9(ICD-10) [facility] 08/15/2024 Final Diagnosis (Discharge) Need for assistance with personal care / Z74.1(ICD-10) [facility] 08/15/2024 Final Diagnosis (Discharge) Other malaise / R53.81(ICD-10) [facility] 08/15/2024 Final Diagnosis (Discharge) Hypothyroidism, unspecified / E03.9(ICD-10) [facility] 08/15/2024 Final Diagnosis (Discharge) Xerosis cutis / L85.3(ICD-10) [facility] 08/15/2024 Final Diagnosis (Discharge) 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) [facility] 08/15/2024 Final Diagnosis (Discharge) jail (current) use of aspirin / Z79.82(ICD-10) [facility] 08/15/2024 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 / Z79.01(ICD-10) [facility] 08/15/2024 Final Diagnosis (Discharge) jail (current) use of oral hypoglycemic drugs / Z79.84(ICD-10) [facility] 08/15/2024 Final Diagnosis (Discharge) Somnolence / R40.0(ICD-10) [facility] 08/15/2024 Final Diagnosis (Discharge) Weakness / R53.1(ICD-10) [facility] 08/15/2024 Final Diagnosis (Discharge) Nausea / R11.0(ICD-10) [facility] 08/15/2024 Final Diagnosis (Discharge) Cough, unspecified / R05.9(ICD-10) [facility] 08/15/2024 Final Diagnosis (Discharge) Pain in left arm / M79.602(ICD-10) [facility] 08/15/2024 Final Diagnosis (Discharge) Other symptoms and signs involving cognitive functions and awareness / R41.89(ICD-10) [facility] 08/15/2024 Final Diagnosis (Discharge) Overactive bladder / N32.81(ICD-10) [facility] 08/15/2024 Final Diagnosis (Discharge) Diarrhea, unspecified / R19.7(ICD-10) [facility] 08/15/2024 Final Diagnosis (Discharge) Hypotension, unspecified / I95.9(ICD-10) [facility] 08/09/2024 Admitting diagnosis CVA / UNK(Unknown) LUCINDA PEACOCK Active [facility] 08/02/2024 Admitting diagnosis Cerebral infarction, unspecified / I63.9(ICD-10) ISABELA VOSS Active [facility] 06/26/2024 Active Atrial fibrillat ion, unspecified type (HCC) / I48.91(ICD-10) EMMA SOTOMAYOR Active [facility] 06/26/2024 Active Need for malaria prophylaxis / Z29.89(ICD-10) EMMA SOTOMAYOR Active [facility] 06/08/2015 Active Hypothyroidism, unspecified type / E03.9(ICD-10) NA Active [facility] 11/26/2013 Active Hyperlipidemia, unspecified hyperlipidemia type / E78.5(ICD-10) NA Active [facility] 07/08/2005 Active Essential hypertension, benign / I10(ICD-10) Active [facility] 05/23/2024 Active Type 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, unspecified CKD stage, unspecified whether terminal carman insulin use (HCC) / E11.22(ICD-10) NA Active [facility] 05/23/2024 Active Chronic kidney disease, stage 3a (HCC) / N18.31(ICD-10) Active [facility] PROCEDURES No Procedure Records Found RESULTS CBC Collected: 8:15 AM Status: F Source: [facility] MAIN TYPE CODE TESTS RESULT OUT OF RANGE REFERENCE UNITS LAB WBC(LOINC) WBC 7.6 4.5-10.8 10 3/mcL LAB RBCCT(LOINC) RBC 4.32 4.10-5.30 10 6/mcL LAB HGB(LOINC) Hgb 13.2 12.0-16.0 G/dL LAB HCT(LOINC) Hct 39.7 34.0-46.0 % LAB MCV(LOINC) MCV 91.9 80.0-99.0 fL LAB MCH(LOINC) MCH 30.6 27.0-33.0 pg LAB MCHC(LOINC) MCHC 33.3 32.0-36.0 G/dL LAB RDW(LOINC) RDW 14.7 11.5-15.5 % LAB PLT(LOINC) Platelet 228 150-450 10 3/mcL LAB MPV(LOINC) MPV 10.1 6.6-10.5 fL Performed By: #### TSH, GFR, CMP, B12, ANEU, CBC, ADIFF #### [place] [address] .AUTO DIFF Collected: 09/03/2024 8:15 AM Status: F Source: [facility] MAIN TYPE CODE TESTS RESULT OUT OF RANGE REFERENCE UNITS LAB MARLEN(LOINC) Neutrophil % 59.5 50.0-75.0 % LAB LYM(LOINC) Lymphocyte % 26.6 20.0-40.0 % LAB MON(LOINC) Monocyte % 9.7 2.0-13.0 % LAB EO(LOINC) Eosinophil % 3.2 0.0-6.0 % LAB BAS(LOINC) Basophil % 1.0 0.0-2.5 % LAB ABLYM(LOINC) Lymphocyte, Absolute 2.0 0.9-4.3 10 3/mcL LAB YANDEL(LOINC) Monocyte, Absolute 0.7 0.1-1.4 10 3/mcL LAB AEOS(LOINC) Eosinophil, Absolute 0.2 0.0-0.7 10 3/mcL LAB ABAS(LOINC) Basophil, Absolute 0.1 0.0-0.3 10 3/mcL Performed By: #### TSH, GFR, CMP, B12, ANEU, CBC, ADIFF #### [place] [address] .NEUABS Collected: 8:15 AM Status: F Source: [facility] MAIN TYPE CODE TESTS RESULT OUT OF RANGE REFERENCE UNITS LAB ANEU(LOINC) Neutrophil, Absolute 4.5 2.3-8.1 10 3/mcL Performed By: #### TSH, GFR, CMP, B12, ANEU, CBC, ADIFF #### [place] [address] CMP Collected: 09/03/2024 8:15 AM Status: F Source: [facility] MAIN TYPE CODE TESTS RESULT OUT OF RANGE REFERENCE UNITS LAB GLU(LOINC) Glucose Level 187 High 82-115 mg/dL LAB NA(LOINC) Sodium Level 138 136-145 mEq/L LAB K(LOINC) Potassium Level 4.6 3.5-5.0 mEq/L LAB CL(LOINC) Chloride 101 98-110 mEq/L LAB CO2(LOINC) CO2 27 22-32 mEq/L LAB EBAL(LOINC) Electrolyte Balance 10.0 4.0-15.0 mEq/L LAB BUN(LOINC) BUN 30.0 High 8.0-22.0 mg/dL LAB CRE(LOINC) Creatinine Lvl (s) 1.01 0.50-1.20 mg/dL Result Comment: Testing perf ormed on [employer] analyzer using enzymatic creatinine methodology. LAB BC(LOINC) BUN/Creatinine Ratio 29.7 High 10.0-22.0 ratio LAB CA(LOINC) Calcium Lvl 9.6 8.7-10.4 mg/dL LAB PROT(LOINC) Total Protein 6.4 5.7-8.2 G/dL LAB ALB(LOINC) Albumin Level 3.0 Low 3.2-4.8 G/dL LAB GLB(LOINC) Globulin 3.4 1.5-3.8 G/dL LAB AG(LOINC) A/G Ratio 0.9 0.9-1.6 ratio LAB BILT(LOINC) Bili Total 0.50 0.20-1.20 mg/dL Result Comment: Use of this assay is not recommended for patients undergoing treatment with eltrombopag due to the potential for falsely elevated results. LAB AP(LOINC) Alk Phos 115 38-126 U/L LAB AST(LOINC) AST/SGOT 31 8-34 U/L LAB ALT(LOINC) ALT/SGPT 37 10-49 U/L Performed By: #### TSH, GFR, CMP, B12, ANEU, CBC, ADIFF #### [address] [address] .GFR Collected: 09/03/2024 8:15 AM Status: F Source: [facility] MAIN TYPE CODE TESTS RESULT OUT OF RANGE REFERENCE UNITS LAB eGFR(LOINC) Estimated Glomerular Filtration Rate 57 ml/min/1. 73sqm Result Comment: Stages of Chronic Kidney Disease (CKD) Stage Description eGFR(ml/min/1.73 sq.m.) CKD 1 Normal kidney function or >=90 normal kindney function with possible kidney damage (ex. Proteinuria) CKD 2 Kidney damage with mild loss 60-89 of kidney function CKD 3a Mild to moderate loss of kidney 45-59 function CKD 3b Moderate to severe loss of 30-44 of kindey function CKD 4 Severe loss of kidney function 15-29 CKD 5 Kidney failure <15 Note: (go live 2024) the eGFR calculation was updated to the 2020 CKD-EPI creatinine equation without a race factor to calculate the eGFR results. Performed By: #### TSH, GFR, CMP, B12, ANEU, CBC, ADIFF #### [address] [address] TSH Collected: 8:15 AM Status: F Source: [facility] MAIN TYPE CODE TESTS RESULT OUT OF RANGE REFERENCE UNITS LAB TSH(LOINC) TSH 3.920 0.550-4.780 mIU/mL Performed By: #### TSH, GFR, CMP, B12, ANEU, CBC, ADIFF #### [facility] [address] [place] [address] B12 Collected: 09/03/2024 8:15 AM Status: F Source: [facility] MAIN TYPE CODE TESTS RESULT OUT OF RANGE REFERENCE UNITS LAB B12(LOINC) Vitamin B12 Lvl 834 211-911 pg/mL Performed By: #### TSH, GFR, CMP, B12, ANEU, CBC, ADIFF #### [facility] [address] [place] [id number] HEAD OR BRAIN W/O CONTRAST Observed: 09/02/2024 2:00 PM Status: F Source: [facility] MAIN ORIGINAL HISTORY: Lethargy COMPARISON: No TECHNIQUE: Routine noncontrast head CT, with sagittal and coronal reconstructions. This exam was performed according to our departmental dose optimization program, and includes the following measures where applicable: automated exposure control, adjustment of the mAs and/or kVp according to patient size and/or exam, and an iterative reconstruction algorithm. FINDINGS: The study is mildly limited by improper patient positioning. The ventricles and sulci are mildly enlarged. There is a hypodense lesion in the right basal ganglia, about 2.5 cm in diameter. There is mild to moderate irregular decreased attenuation in the cerebral white matter. Moise-white matter differentiation is maintained. The calvaria and the bones of the base of the skull are intact. IMPRESSION: Evolving right basal ganglia hemorrhage. Volume loss and small vessel ischemic disease. Interpreted by: Nando Mcclellan MD Preliminary Report By: Nando Mcclellan MD Electronically signed By Nando Mcclellan MD Dictated Date: 09/02/2024 3:03:15 PM Prelim Date: 09/02/2024 3:10:44 PM Sign Date: 09/02/2024 3:10:44 PM Ordering Provider: SILVINO JEFF Observed: 08/30/2024 12:00 AM Status: COMPLETED Source: [facility] Telephone (FAMPWS) LINDSAY ACUNA ([id number]) 1945 F Date Time Provider Department 08/30/24 KAMERON CARUSO During your visit today, we recorded the following information about you: Jaiden Paulino RN 08/30/2024 9:11 AM Signed Marya- [facility] reports patient was in [facility] with dx: stroke, and transferred to [facility]. Pt will be discharged from [facility] on 09/07/24 to home with [facility] SN PT OT [facility]. Asking if pcp agreeable to follow for [facility]. Please phone Marya with verbal: [phone] Mj Glover APRN.GARRETT 08/30/2024 9:19 AM Signed Please let know that Dr. Caruso's team will follow orders. Okay to proceed. Mj Glover APRN.Fouzia Reynoso LPN 08/30/2024 10:09 AM Signed Marya with [facility] notified. Allergies As of Date: 08/30/2024 Noted Allergy Reaction BENZOCAINE 07/08/2005 2 - Rash COCAINE 05/28/2008 Comments: Inverted T PERFUMES 07/08/2005 12 - Shortness of Breath Comments: coughes and chokes SULFA (SULFONAMIDE ANTIBIOTICS) 07/08/2005 5 - Intolerance Date Reviewed: 06/26/2024 Reviewed by: Bret Arambula LPN - Fully Assessed Reason for Visit: [facility] requesting verbal agree to follow [Other] Prescriptions as of 08/30/2024 - oxybutynin ER (DITROPAN XL) 5 mg 24 hr tablet Take 1 tablet by mouth once daily. - apixaban (ELIQUIS) 2.5 mg tab(s) Take 1 tablet by mouth two times a day. - levothyroxine (SYNTHROID) 75 mcg tablet Take 1 tablet by mouth daily before breakfast six days per week. - atenolol (TENORMIN) 50 mg tablet Take 1 tablet by mouth once daily. - atorvastatin (LIPITOR) 80 mg tablet Take 1 tablet by mouth once daily. - metFORMIN ER (GLUCOPHAGE XR) 500 mg 24 hr tablet Take 2 tablets by mouth daily with breakfast. - ramipril (ALTACE) 10 mg capsule Take 2 capsules by mouth once daily. - glimepiride (AMARYL) 2 mg tablet Take 1 tablet by mouth daily with breakfast. - blood sugar diagnostic (ONETOUCH ULTRA TEST) test strip Test Blood Sugar one times daily Dx: E11.29 Insulin: No - lancets (ONETOUCH DELICA PLUS LANCET) 30 gauge Test blood sugars 1 time daily. Dx: Type 2 DM Controlled E11.9. Insulin: no - Chlorhexidine Gluconate (PERIDEX) 0.12 % solution Use 15 mL as instructed twice daily. Rinse around mouth for 30 seconds then expectorate - blood sugar diagnostic (ONETOUCH ULTRA TEST STRIP) test strip Use to test sugars 1 times per day. Dx: E11.29. Insulin: No - Betamethasone Dipropionate 0.05 % lotion Apply 1 application to affected area twice daily. - ONE TOUCH GLUCOSE CONTROL SOLN use as directed. Problem List As Of Date 08/30/2024 Noted Resolved BENIGN HYPERTENSION [I10] PURE HYPERCHOLESTEROLEM [E78.00] 11/26/2013 DIABETES MELLITUS TYPE II-UNCOMPL [E11.9] 11/26/2013 SIMPLE GOITER [E04.0] Hypothyroidism [E03.9] 03/27/2007 Type 2 diabetes mellitus with stage 3b chronic *11/26/2013 CKD (chronic kidney disease) stage 3, GFR 30-59*11/26/2013 Hyperlipidemia [E78.5] 11/26/2013 Psoriasis of scalp [L40.9] 11/26/2013 Diabetes mellitus with renal complications (HCC*05/01/2014 11/03/2020 Hypertensive kidney disease with stage 3 chroni*11/03/2020 11/05/2020 Acute pain of left knee [M25.562] 11/13/2020 Acute left ankle pain [M25.572] 11/13/2020 Chronic pain of left ankle [M25.572, G89.29] 11/13/2020 Encounter Status:Closed by FOUZIA MILLER on 08/30/24 CBC Collected: 6:27 AM Status: F Source: [facility] MAIN TYPE CODE TESTS RESULT OUT OF RANGE REFERENCE UNITS LAB WBC(LOINC) WBC 8.3 4.5-10.8 10 3/mcL LAB RBCCT(LOINC) RBC 4.46 4.10-5.30 10 6/mcL LAB HGB(LOINC) Hgb 13.4 12.0-16.0 G/dL LAB HCT(LOINC) Hct 41.0 34.0-46.0 % LAB MCV(LOINC) MCV 91.9 80.0-99.0 fL LAB MCH(LOINC) MCH 30.0 27.0-33.0 pg LAB MCHC(LOINC) MCHC 32.7 32.0-36.0 G/dL LAB RDW(LOINC) RDW 14.0 11.5-15.5 % LAB PLT(LOINC) Platelet 297 150-450 10 3/mcL LAB MPV(LOINC) MPV 11.0 High 6.6-10.5 fL Performed By: #### DORY, CB C, ANEU, GFR, BMP #### [address] [address] .AUTO DIFF Collected: 08/26/2024 6:27 AM Status: F Source: [facility] MAIN TYPE CODE TESTS RESULT OUT OF RANGE REFERENCE UNITS LAB MARLEN(LOINC) Neutrophil % 57.1 50.0-75.0 % LAB LYM(LOINC) Lymphocyte % 26.3 20.0-40.0 % LAB MON(LOINC) Monocyte % 11.4 2.0-13.0 % LAB EO(LOINC) Eosinophil % 4.2 0.0-6.0 % LAB BAS(LOINC) Basophil % 1.0 0.0-2.5 % LAB ABLYM(LOINC) Lymphocyte, Absolute 2.2 0.9-4.3 10 3/mcL LAB YANDEL(LOINC) Monocyte, Absolute 0.9 0.1-1.4 10 3/mcL LAB AEOS(LOINC) Eosinophil, Absolute 0.3 0.0-0.7 10 3/mcL LAB ABAS(LOINC) Basophil, Absolute 0.1 0.0-0.3 10 3/mcL Performed By: #### DORY, CB C, ANEU, GFR, BMP #### [address] [address] .NEUABS Collected: 6:27 AM Status: F Source: [facility] MAIN TYPE CODE TESTS RESULT OUT OF RANGE REFERENCE UNITS LAB ANEU(LOINC) Neutrophil, Absolute 4.7 2.3-8.1 10 3/mcL Performed By: #### AMENA CONNORS C, ANEU, GFR, BMP #### [address] [address] BMP Collected: 08/26/2024 6:27 AM Status: F Source: [facility] MAIN TYPE CODE TESTS RESULT OUT OF RANGE REFERENCE UNITS LAB GLU(LOINC) Glucose Level 160 High 82-115 mg/dL LAB NA(LOINC) Sodium Level 135 Low 136-145 mEq/L LAB K(LOINC) Potassium Level 4.7 3.5-5.0 mEq/L Result Comment: Specimen sli ghtly hemolyzed. LAB CL(LOINC) Chloride 98 98-110 mEq/L LAB CO2(LOINC) CO2 25 22-32 mEq/L LAB EBAL(LOINC) Electrolyte Balance 12.0 4.0-15.0 mEq/L LAB BUN(LOINC) BUN 34.0 High 8.0-22.0 mg/dL LAB CRE(LOINC) Creatinine Lvl (s) 0.97 0.50-1.20 mg/dL Result Comment: Testing perf ormed on [employer] analyzer using enzymatic creatinine methodology. LAB BC(LOINC) BUN/Creatinine Ratio 35.1 High 10.0-22.0 ratio LAB CA(LOINC) Calcium Lvl 9.8 8.7-10.4 mg/dL Performed By: #### AMENA CONNORS, ANEU, GFR, BMP #### [address] [address] .GFR Collected: 08/26/2024 6:27 AM Status: F Source: [facility] MAIN TYPE CODE TESTS RESULT OUT OF RANGE REFERENCE UNITS LAB eGFR(LOINC) Estimated Glomerular Filtration Rate 59 ml/min/1. 73sqm Result Comment: Stages of Chronic Kidney Disease (CKD) Stage Description eGFR(ml/min/1.73 sq.m.) CKD 1 Normal kidney function or >=90 normal kindney function with possible kidney damage (ex. Proteinuria) CKD 2 Kidney damage with mild loss 60-89 of kidney function CKD 3a Mild to moderate loss of kidney 45-59 function CKD 3b Moderate to severe loss of 30-44 of kindey function CKD 4 Severe loss of kidney function 15-29 CKD 5 Kidney failure <15 Note: (go live 2024) the eGFR calculation was updated to the 2020 CKD-EPI creatinine equation without a race factor to calculate the eGFR results. Performed By: #### ADIFF, CB C, ANEU, GFR, BMP #### [place] [address] XR HUMERUS MINIMUM 2 VIEWS LEFT Observed: 08/25/2024 1:41 PM Status: F Source: [facility] MAIN ORIGINAL EXAMINATION: TWO XRAY VIEWS OF THE LEFT HUMERUS 08/25/2024 1:43 pm COMPARISON: None. HISTORY: ORDERING SYSTEM PROVIDED HISTORY: Reason for Exam: pain FINDINGS: No acute fracture or dislocation. The joint spaces are maintained. No periarticular calcifications. No suspicious osseous lesions. No radiopaque foreign body. Partially visualized screw and plate fixation of the distal radius. IMPRESSION: No acute osseous findings. I have personally reviewed the images of this examination and agree with the resident's findings and interpretation. Interpreted by: Jamar Dunne DO Preliminary Report By: Padilla Barrera Electronically signed By Jamar Dunne DO Dictated Date: 08/25/2024 1:52:15 PM Prelim Date: 08/25/2024 1:55:41 PM Sign Date: 08/25/2024 2:26:11 PM Ordering Provider: JACKLYN LINDSEY XR HAND AND WRIST 6 VIEWS LEFT Observed: 08/25/2024 1:41 PM Status: F Source: [facility] MAIN ORIGINAL EXAMINATION: 3 XRAY VIEWS OF THE LEFT hand and 3 x-ray views of the left wrist 08/25/2024 1:46 pm COMPARISON: None. HISTORY: ORDERING SYSTEM PROVIDED HISTORY: Reason for Exam: pain FINDINGS: The bones are diffusely demineralized. No acute fracture or dislocation. Screw and plate fixation of the distal radius. No evidence of hardware complication or periprosthetic fracture. Degenerative changes are seen throughout the carpometacarpal and interphalangeal joints, most severe at the 1st [facility]. No suspicious osseous lesions. No radiopaque foreign body. IMPRESSION: No acute fracture or dislocation. Osteoarthritis of the hand and wrist, most severe at the 1st [facility] I have personally reviewed the images of this examination and agree with the resident's findings and interpretation. Interpreted by: Jamar Dunne DO Preliminary Report By: Padilla Barrera Electronically signed By Jamar Dunne DO Dictated Date: 08/25/2024 1:58:31 PM Prelim Date: 08/25/2024 2:00:44 PM Sign Date: 08/25/2024 2:27:26 PM Ordering Provider: JACKLYN LINDSEY XR SHOULDER MINIMUM 2 VIEWS LEFT Observed: 08/25/2024 1:41 PM Status: F Source: [facility] MAIN ORIGINAL EXAMINATION: TWO XRAY VIEWS OF THE LEFT SHOULDER 08/25/2024 1:45 pm COMPARISON: None. HISTORY: ORDERING SYSTEM PROVIDED HISTORY: Reason for Exam: pain FINDINGS: No acute fracture or dislocation. The joint spaces are maintained. Small rounded centrally lucent lesion with sclerotic rim in the left humeral head likely reflects a benign osteoid osteoma versus overlying artifact.. No radiopaque foreign body. IMPRESSION: No acute osseous findings. I have personally reviewed the images of this examination and agree with the resident's findings and interpretation. Interpreted by: Jamar Dunne DO Preliminary Report By: Padilla Barrera Electronically signed By Jamar Dunne DO Dictated Date: 08/25/2024 1:54:13 PM Prelim Date: 08/25/2024 1:57:23 PM Sign Date: 08/25/2024 2:26:45 PM Ordering Provider: JACKLYN LINDSEY A1C Collected: 5 8:44 AM Status: F Source: [facility] MAIN TYPE CODE TESTS RESULT OUT OF RANGE REFERENCE UNITS LAB A1C(LOINC) Hgb A1c 8.4 High 4.0-6.0 % LAB eAG(LOINC) Est Avg Glucose 194 mg/dL Result Comment: Estimated Av erage Glucose calculated by equation ((28.7xA1C)- 46.7) Estimated average glucose (eAG) is a calculated value from Hemoglobin A1C and is life assurance representative of the average blood glucose level in the last 2-3 month period. Normal range: less than 114 mg/dL Performed By: #### A1C #### [place] [address] CBC Collected: 5 6:44 AM Status: F Source: [facility] MAIN TYPE CODE TESTS RESULT OUT OF RANGE REFERENCE UNITS LAB WBC(LOINC) WBC 8.1 4.5-10.8 10 3/mcL LAB RBCCT(LOINC) RBC 4.58 4.10-5.30 10 6/mcL LAB HGB(LOINC) Hgb 13.6 12.0-16.0 G/dL LAB HCT(LOINC) Hct 41.9 34.0-46.0 % LAB MCV(LOINC) MCV 91.5 80.0-99.0 fL LAB MCH(LOINC) MCH 29.7 27.0-33.0 pg LAB MCHC(LOINC) MCHC 32.4 32.0-36.0 G/dL LAB RDW(LOINC) RDW 14.0 11.5-15.5 % LAB PLT(LOINC) Platelet 301 150-450 10 3/mcL LAB MPV(LOINC) MPV 11.0 High 6.6-10.5 fL Performed By: #### BMP, ADIF F, CBC, GFR, ANEU #### [place] [address] .AUTO DIFF Collected: 08/20/2024 6:44 AM Status: F Source: [facility] MAIN TYPE CODE TESTS RESULT OUT OF RANGE REFERENCE UNITS LAB MARLEN(LOINC) Neutrophil % 63.1 50.0-75.0 % LAB LYM(LOINC) Lymphocyte % 20.8 20.0-40.0 % LAB MON(LOINC) Monocyte % 11.4 2.0-13.0 % LAB EO(LOINC) Eosinophil % 3.6 0.0-6.0 % LAB BAS(LOINC) Basophil % 1.1 0.0-2.5 % LAB ABLYM(LOINC) Lymphocyte, Absolute 1.7 0.9-4.3 10 3/mcL LAB YANDEL(LOINC) Monocyte, Absolute 0.9 0.1-1.4 10 3/mcL LAB AEOS(LOINC) Eosinophil, Absolute 0.3 0.0-0.7 10 3/mcL LAB ABAS(LOINC) Basophil, Absolute 0.1 0.0-0.3 10 3/mcL Performed By: #### BMP, ADIF F, CBC, GFR, ANEU #### [address] [address] .NEUABS Collected: 6:44 AM Status: F Source: [facility] MAIN TYPE CODE TESTS RESULT OUT OF RANGE REFERENCE UNITS LAB ANEU(LOINC) Neutrophil, Absolute 5.1 2.3-8.1 10 3/mcL Performed By: #### OPAL, ADIF F, CBC, GFR, ANEU #### [place] [id number] [place] [address] BMP Collected: 08/20/2024 6:44 AM Status: F Source: [facility] MAIN TYPE CODE TESTS RESULT OUT OF RANGE REFERENCE UNITS LAB GLU(LOINC) Glucose Level 244 High 82-115 mg/dL LAB NA(LOINC) Sodium Level 134 Low 136-145 mEq/L LAB K(LOINC) Potassium Level 4.8 3.5-5.0 mEq/L Result Comment: Specimen sli ghtly hemolyzed. LAB CL(LOINC) Chloride 95 Low 98-110 mEq/L LAB CO2(LOINC) CO2 34 High 22-32 mEq/L LAB EBAL(LOINC) Electrolyte Balance 5.0 4.0-15.0 mEq/L LAB BUN(LOINC) BUN 31.0 High 8.0-22.0 mg/dL LAB CRE(LOINC) Creatinine Lvl (s) 1.04 0.50-1.20 mg/dL Result Comment: Testing perf ormed on [employer] analyzer using enzymatic creatinine methodology. LAB BC(LOINC) BUN/Creatinine Ratio 29.8 High 10.0-22.0 ratio LAB CA(LOINC) Calcium Lvl 9.8 8.7-10.4 mg/dL Performed By: #### OPAL, ADIF F, CBC, GFR, ANEU #### [place] [address] .GFR Collected: 08/20/2024 6:44 AM Status: F Source: [facility] MAIN TYPE CODE TESTS RESULT OUT OF RANGE REFERENCE UNITS LAB eGFR(LOINC) Estimated Glomerular Filtration Rate 55 ml/min/1. 73sqm Result Comment: Stages of Chronic Kidney Disease (CKD) Stage Description eGFR(ml/min/1.73 sq.m.) CKD 1 Normal kidney function or >=90 normal kindney function with possible kidney damage (ex. Proteinuria) CKD 2 Kidney damage with mild loss 60-89 of kidney function CKD 3a Mild to moderate loss of kidney 45-59 function CKD 3b Moderate to severe loss of 30-44 of kindey function CKD 4 Severe loss of kidney function 15-29 CKD 5 Kidney failure <15 Note: (go live 2024) the eGFR calculation was updated to the 2020 CKD-EPI creatinine equation without a race factor to calculate the eGFR results. Performed By: #### BMP, ADIF F, CBC, GFR, ANEU #### [place] [address] XR CHEST 1 VIEW Observed: 08/18/2024 1:17 PM Status: F Source: [facility] MAIN ORIGINAL EXAMINATION: ONE XRAY VIEW OF THE CHEST 08/18/2024 3:08 pm COMPARISON: None. HISTORY: ORDERING SYSTEM PROVIDED HISTORY: Reason for Exam: Possible aspiration. Cough new FINDINGS: The heart is normal in size and there is no vascular congestion present. Minimal linear areas of scarring or atelectasis are evident at the lung bases. No other potential infiltrates are seen and there is no pleural fluid. No acute osseous finding. IMPRESSION: Minimal basilar scarring or atelectasis. No other acute finding. Interpreted by: Huey Lynn MD Preliminary Report By: Huey Lynn MD Electronically signed By Huey Lynn MD Dictated Date: 08/18/2024 3:13:42 PM Prelim Date: 08/18/2024 3:14:15 PM Sign Date: 08/18/2024 3:14:15 PM Ordering Provider: NANDO JOSEPH Collected: 08/16/2024 6:15 AM Status: F Source: [facility] MAIN TYPE CODE TESTS RESULT OUT OF RANGE REFERENCE UNITS LAB GLU(LOINC) Glucose Level 259 High 82-115 mg/dL LAB NA(LOINC) Sodium Level 135 Low 136-145 mEq/L LAB K(LOINC) Potassium Level 5.0 3.5-5.0 mEq/L LAB CL(LOINC) Chloride 100 98-110 mEq/L LAB CO2(LOINC) CO2 30 22-32 mEq/L LAB EBAL(LOINC) Electrolyte Balance 5.0 4.0-15.0 mEq/L LAB BUN(LOINC) BUN 34.0 High 8.0-22.0 mg/dL LAB CRE(LOINC) Creatinine Lvl (s) 0.99 0.50-1.20 mg/dL Result Comment: Testing perf ormed on [employer] analyzer using enzymatic creatinine methodology. LAB BC(LOINC) BUN/Creatinine Ratio 34.3 High 10.0-22.0 ratio LAB CA(LOINC) Calcium Lvl 9.0 8.7-10.4 mg/dL Performed By: #### GFR, ADIF F, BMP, CBC, ANEU #### [place] [address] .GFR Collected: 08/16/2024 6:15 AM Status: F Source: [facility] MAIN TYPE CODE TESTS RESULT OUT OF RANGE REFERENCE UNITS LAB eGFR(LOINC) Estimated Glomerular Filtration Rate 58 ml/min/1. 73sqm Result Comment: Stages of Chronic Kidney Disease (CKD) Stage Description eGFR(ml/min/1.73 sq.m.) CKD 1 Normal kidney function or >=90 normal kindney function with possible kidney damage (ex. Proteinuria) CKD 2 Kidney damage with mild loss 60-89 of kidney function CKD 3a Mild to moderate loss of kidney 45-59 function CKD 3b Moderate to severe loss of 30-44 of kindey function CKD 4 Severe loss of kidney function 15-29 CKD 5 Kidney failure <15 Note: (go live 2024) the eGFR calculation was updated to the 2020 CKD-EPI creatinine equation without a race factor to calculate the eGFR results. Performed By: #### GFR, ADIF F, BMP, CBC, ANEU #### [place] [address] CBC Collected: 6:15 AM Status: F Source: [facility] MAIN TYPE CODE TESTS RESULT OUT OF RANGE REFERENCE UNITS LAB WBC(LOINC) WBC 12.7 High 4.5-10.8 10 3/mcL LAB RBCCT(LOINC) RBC 4.63 4.10-5.30 10 6/mcL LAB HGB(LOINC) Hgb 13.9 12.0-16.0 G/dL LAB HCT(LOINC) Hct 43.3 34.0-46.0 % LAB MCV(LOINC) MCV 93.6 80.0-99.0 fL LAB MCH(LOINC) MCH 30.0 27.0-33.0 pg LAB MCHC(LOINC) MCHC 32.1 32.0-36.0 G/dL LAB RDW(LOINC) RDW 13.7 11.5-15.5 % LAB PLT(LOINC) Platelet 230 150-450 10 3/mcL LAB MPV(LOINC) MPV 10.7 High 6.6-10.5 fL Performed By: #### GFR, ADIF F, BMP, CBC, ANEU #### [address] [address] .AUTO DIFF Collected: 08/16/2024 6:15 AM Status: F Source: [facility] MAIN TYPE CODE TESTS RESULT OUT OF RANGE REFERENCE UNITS LAB MARLEN(LOINC) Neutrophil % 72.6 50.0-75.0 % LAB LYM(LOINC) Lymphocyte % 14.8 Low 20.0-40.0 % LAB MON(LOINC) Monocyte % 9.8 2.0-13.0 % LAB EO(LOINC) Eosinophil % 2.1 0.0-6.0 % LAB BAS(LOINC) Basophil % 0.7 0.0-2.5 % LAB ABLYM(LOINC) Lymphocyte, Absolute 1.9 0.9-4.3 10 3/mcL LAB YANDEL(LOINC) Monocyte, Absolute 1.2 0.1-1.4 10 3/mcL LAB AEOS(LOINC) Eosinophil, Absolute 0.3 0.0-0.7 10 3/mcL LAB ABAS(LOINC) Basophil, Absolute 0.1 0.0-0.3 10 3/mcL Performed By: #### GFR, ADIF F, BMP, CBC, ANEU #### [address] [address] .NEUABS Collected: 6:15 AM Status: F Source: [facility] MAIN TYPE CODE TESTS RESULT OUT OF RANGE REFERENCE UNITS LAB ANEU(LOINC) Neutrophil, Absolute 9.2 High 2.3-8.1 10 3/mcL Performed By: #### GFR, ADIF F, BMP, CBC, ANEU #### [address] [address] CBC,PLATELETS Collected: 08/15/2024 12:19 AM Status: F Source: [facility] TYPE CODE TESTS RESULT OUT OF RANGE REFERENCE UNITS LAB [id number] WBC Count 11.94 High 3.99-11.19 K/uL LAB [id number] RBC Count 4.67 3.91-5.04 M/uL LAB [id number] Hemoglobin 13.5 11.4-15.2 g/dL LAB [id number] Hematocrit 43.8 34.9-44.3 % LAB [id number] Mean Cell Volume 93.8 79.6-97.7 fL LAB [id number] Mean Cell Hgb 28.9 25.9-33.9 pg LAB [id number] Mean Cell Hgb Conc 30.8 Low 31.4-35.9 g/dL LAB [id number] RBC Distribution 13.4 10.8-14.9 % LAB [id number] Platelet Count 252 150-393 K/uL LAB [id number] Mean Platelet Volume 12.0 8.5-12.2 fL Performed By: #### HEMOGC ## ## [facility] (DEFAULT) [address] [place] [address] MAGNESIUM Collected: 12:19 AM Status: F Source: [facility] TYPE CODE TESTS RESULT OUT OF RANGE REFERENCE UNITS LAB [id number] Magnesium 1.6 1.6-2.6 mg/dL Performed By: #### MGO, CHM7 #### [facility] (DEFAULT) [address] [place] [address] CHEM 7 (LYTES,BUN,CREA,GLUC) Collected: 08/15/2024 12:19 AM Status: F Source: [facility] TYPE CODE TESTS RESULT OUT OF RANGE REFERENCE UNITS LAB [id number] Sodium 135 135-145 mmol/L LAB [id number] Potassium 4.8 3.5-5.0 mmol/L LAB [id number] Chloride 99 98-108 mmol/L LAB [id number] CO2 25 21-31 mmol/L LAB [id number] Glucose 214 High Nonfastin -179 mg/dL; Fastin-99 mg/dL LAB [id number] BUN 51 High 7-25 mg/dL LAB [id number] Creatinine 1.27 High 0.50-1.20 mg/dL LAB [id number] Bun/Crea Ratio 40 LAB [id number] Osmolality (Calculated) 306 High 278-305 mOsm/kg LAB [id number] Anion Gap 16 7-17 mmol/L LAB [id number] eGFR, CKD-EPI, Female 42 Low >=60 mL/min/ 1.73m2 Result Comment: Reported eGF R is based on the CKD-EPI 2020 equation using creatinine, age, and sex. Performed By: #### HEYDI LYONS7 #### [facility] (DEFAULT) [address] [address] CBC,PLATELETS Collected: 08/14/2024 4:01 AM Status: F Source: [facility] TYPE CODE TESTS RESULT OUT OF RANGE REFERENCE UNITS LAB [id number] WBC Count 12.14 High 3.99-11.19 K/uL LAB [id number] RBC Count 4.88 3.91-5.04 M/uL LAB [id number] Hemoglobin 14.3 11.4-15.2 g/dL LAB [id number] Hematocrit 47.9 High 34.9-44.3 % LAB [id number] Mean Cell Volume 98.2 High 79.6-97.7 fL LAB [id number] Mean Cell Hgb 29.3 25.9-33.9 pg LAB [id number] Mean Cell Hgb Conc 29.9 Low 31.4-35.9 g/dL LAB [id number] RBC Distribution 13.4 10.8-14.9 % LAB [id number] Platelet Count 229 150-393 K/uL LAB [id number] Mean Platelet Volume 11.3 8.5-12.2 fL Performed By: #### HEMOGC ## ## [facility] (DEFAULT) [address] [address] MAGNESIUM Collected: 4:01 AM Status: F Source: [facility] TYPE CODE TESTS RESULT OUT OF RANGE REFERENCE UNITS LAB [id number] Magnesium 1.6 1.6-2.6 mg/dL Performed By: #### MGTrupti CHM7 #### [facility] (DEFAULT) [address] [address] CHEM 7 (LYTES,BUN,CREA,GLUC) Collected: 08/14/2024 4:01 AM Status: F Source: [facility] TYPE CODE TESTS RESULT OUT OF RANGE REFERENCE UNITS LAB [id number] Sodium 135 135-145 mmol/L LAB [id number] Potassium 4.7 3.5-5.0 mmol/L LAB [id number] Chloride 101 98-108 mmol/L LAB [id number] CO2 23 21-31 mmol/L LAB [id number] Glucose 208 High Nonfastin -179 mg/dL; Fastin-99 mg/dL LAB [id number] BUN 47 High 7-25 mg/dL LAB [id number] Creatinine 1.15 0.50-1.20 mg/dL LAB [id number] Bun/Crea Ratio 41 LAB [id number] Osmolality (Calculated) 304 278-305 mOsm/kg LAB [id number] Anion Gap 16 7-17 mmol/L LAB [id number] eGFR, CKD-EPI, Female 47 Low >=60 mL/min/ 1.73m2 Result Comment: Reported eGF R is based on the CKD-EPI 2020 equation using creatinine, age, and sex. Performed By: #### MGO, CHM7 #### [facility] (DEFAULT) [address] [place] [address] CBC,PLATELETS Collected: 08/13/2024 12:38 AM Status: F Source: [facility] TYPE CODE TESTS RESULT OUT OF RANGE REFERENCE UNITS LAB [id number] WBC Count 12.02 High 3.99-11.19 K/uL LAB [id number] RBC Count 4.85 3.91-5.04 M/uL LAB [id number] Hemoglobin 14.3 11.4-15.2 g/dL LAB [id number] Hematocrit 45.7 High 34.9-44.3 % LAB [id number] Mean Cell Volume 94.2 79.6-97.7 fL LAB [id number] Mean Cell Hgb 29.5 25.9-33.9 pg LAB [id number] Mean Cell Hgb Conc 31.3 Low 31.4-35.9 g/dL LAB [id number] RBC Distribution 13.4 10.8-14.9 % LAB [id number] Platelet Count 245 150-393 K/uL LAB [id number] Mean Platelet Volume 11.7 8.5-12.2 fL Performed By: #### HEMOGC ## ## [facility] (DEFAULT) [address] [address] MAGNESIUM Collected: 12:38 AM Status: F Source: [facility] TYPE CODE TESTS RESULT OUT OF RANGE REFERENCE UNITS LAB [id number] Magnesium 1.8 1.6-2.6 mg/dL Performed By: #### MGTrupti, CHM7 #### [facility] (DEFAULT) [address] [place] [address] CHEM 7 (LYTES,BUN,CREA,GLUC) Collected: 08/13/2024 12:38 AM Status: F Source: [facility] TYPE CODE TESTS RESULT OUT OF RANGE REFERENCE UNITS LAB [id number] Sodium 137 135-145 mmol/L LAB [id number] Potassium 4.6 3.5-5.0 mmol/L LAB [id number] Chloride 104 98-108 mmol/L LAB [id number] CO2 23 21-31 mmol/L LAB [id number] Glucose 225 High Nonfastin -179 mg/dL; Fastin-99 mg/dL LAB [id number] BUN 55 High 7-25 mg/dL LAB [id number] Creatinine 1.18 0.50-1.20 mg/dL LAB [id number] Bun/Crea Ratio 47 LAB [id number] Osmolality (Calculated) 311 High 278-305 mOsm/kg LAB [id number] Anion Gap 15 7-17 mmol/L LAB [id number] eGFR, CKD-EPI, Female 46 Low >=60 mL/min/ 1.73m2 Result Comment: Reported eGF R is based on the CKD-EPI 2020 equation using creatinine, age, and sex. Performed By: #### MGTrupti, CHM7 #### [facility] (DEFAULT) [address] [address] CBC,PLATELETS Collected: 08/12/2024 3:43 AM Status: F Source: [facility] TYPE CODE TESTS RESULT OUT OF RANGE REFERENCE UNITS LAB [id number] WBC Count 14.32 High 3.99-11.19 K/uL LAB [id number] RBC Count 4.82 3.91-5.04 M/uL LAB [id number] Hemoglobin 14.3 11.4-15.2 g/dL LAB [id number] Hematocrit 45.1 High 34.9-44.3 % LAB [id number] Mean Cell Volume 93.6 79.6-97.7 fL LAB [id number] Mean Cell Hgb 29.7 25.9-33.9 pg LAB [id number] Mean Cell Hgb Conc 31.7 31.4-35.9 g/dL LAB [id number] RBC Distribution 13.6 10.8-14.9 % LAB [id number] Platelet Count 241 150-393 K/uL LAB [id number] Mean Platelet Volume 11.4 8.5-12.2 fL Performed By: #### HEMOGC ## ## [facility] (DEFAULT) [address] [address] MAGNESIUM Collected: 3:43 AM Status: F Source: [facility] TYPE CODE TESTS RESULT OUT OF RANGE REFERENCE UNITS LAB [id number] Magnesium 2.2 1.6-2.6 mg/dL Performed By: #### CHM7, MGO #### [facility] (DEFAULT) [address] [address] CHEM 7 (LYTES,BUN,CREA,GLUC) Collected: 08/12/2024 3:43 AM Status: F Source: [facility] TYPE CODE TESTS RESULT OUT OF RANGE REFERENCE UNITS LAB [id number] Sodium 141 135-145 mmol/L LAB [id number] Potassium 4.5 3.5-5.0 mmol/L LAB [id number] Chloride 104 98-108 mmol/L LAB [id number] CO2 27 21-31 mmol/L LAB [id number] Glucose 126 Nonfastin -179 mg/dL; Fastin-99 mg/dL LAB [id number] BUN 56 High 7-25 mg/dL LAB [id number] Creatinine 1.36 High 0.50-1.20 mg/dL LAB [id number] Bun/Crea Ratio 41 LAB [id number] Osmolality (Calculated) 313 High 278-305 mOsm/kg LAB [id number] Anion Gap 15 7-17 mmol/L LAB [id number] eGFR, CKD-EPI, Female 40 Low >=60 mL/min/ 1.73m2 Result Comment: Reported eGF R is based on the CKD-EPI 202 equation using creatinine, age, and sex. Performed By: #### CHM7, MGO #### [facility] (DEFAULT) [address] [address] MAGNESIUM Collected: 3:16 AM Status: F Source: [facility] TYPE CODE TESTS RESULT OUT OF RANGE REFERENCE UNITS LAB [id number] Magnesium 1.9 1.6-2.6 mg/dL Performed By: #### MGO, HILARIAM7 #### [facility] (DEFAULT) [address] [address] CHEM 7 (LYTES,BUN,CREA,GLUC) Collected: 08/11/2024 3:16 AM Status: F Source: [facility] TYPE CODE TESTS RESULT OUT OF RANGE REFERENCE UNITS LAB [id number] Sodium 138 135-145 mmol/L LAB [id number] Potassium 4.6 3.5-5.0 mmol/L LAB [id number] Chloride 103 98-108 mmol/L LAB [id number] CO2 26 21-31 mmol/L LAB [id number] Glucose 127 Nonfastin -179 mg/dL; Fastin-99 mg/dL LAB [id number] BUN 53 High 7-25 mg/dL LAB [id number] Creatinine 1.32 High 0.50-1.20 mg/dL LAB [id number] Bun/Crea Ratio 40 LAB [id number] Osmolality (Calculated) 306 High 278-305 mOsm/kg LAB [id number] Anion Gap 14 7-17 mmol/L LAB [id number] eGFR, CKD-EPI, Female 41 Low >=60 mL/min/ 1.73m2 Result Comment: Reported eGF R is based on the CKD-EPI 2021 equation using creatinine, age, and sex. Performed By: #### MGO, CHM7 #### [facility] (DEFAULT) [address] [address] CBC,PLATELETS Collected: 08/11/2024 3:16 AM Status: F Source: [facility] TYPE CODE TESTS RESULT OUT OF RANGE REFERENCE UNITS LAB [id number] WBC Count 11.76 High 3.99-11.19 K/uL LAB [id number] RBC Count 4.69 3.91-5.04 M/uL LAB [id number] Hemoglobin 14.0 11.4-15.2 g/dL LAB [id number] Hematocrit 43.2 34.9-44.3 % LAB [id number] Mean Cell Volume 92.1 79.6-97.7 fL LAB [id number] Mean Cell Hgb 29.9 25.9-33.9 pg LAB [id number] Mean Cell Hgb Conc 32.4 31.4-35.9 g/dL LAB [id number] RBC Distribution 13.7 10.8-14.9 % LAB [id number] Platelet Count 240 150-393 K/uL LAB [id number] Mean Platelet Volume 11.5 8.5-12.2 fL Performed By: #### HEMOGC ## ## [facility] (DEFAULT) [address] [place] [address] BLOOD CULTURE Collected: 5 1:14 PM Status: F Source: [facility] Order Comment: 2 Bottles (1 Set - consists of 1 Aerobic bottle and 1 Anaerobic bottle) - 1st Peripheral Draw For vacutainer method draw: Fill aerobic bottle first, then anaerobic Results may be compromised due to LOW VOLUME of the BACT\\ALERT bottle UNDER 8mLs, which can be associated with decreased sensitivity. The optimal blood volume is 8-10mLs per aerobic/anaerobic blood culture bottle. TYPE CODE TESTS RESULT OUT OF RANGE REFERENCE UNITS LAB [id number] Culture NO GROWTH DAY 5 OF Performed By: #### BLDCULT # ### [facility] (DEFAULT) [address] [place] [address] BLOOD CULTURE Collected: 5 12:53 PM Status: F Source: [facility] Order Comment: 2 Bottles (1 Set - consists of 1 Aerobic bottle and 1 Anaerobic bottle) - 1st Peripheral Draw For vacutainer method draw: Fill aerobic bottle first, then anaerobic Results may be compromised due to HIGH VOLUME of the BACT\\ALERT bottle EXCEEDING 10mLs, which can be associated with increased contamination. The optimal blood volume is 8-10mLs per aerobic/anaerobic blood culture bottle. TYPE CODE TESTS RESULT OUT OF RANGE REFERENCE UNITS LAB [id number] Culture NO GROWTH DAY 5 OF 5 Performed By: #### BLDCULT # ### [facility] (DEFAULT) [address] [address] CBC,PLATELETS Collected: 08/10/2024 12:46 AM Status: F Source: [facility] TYPE CODE TESTS RESULT OUT OF RANGE REFERENCE UNITS LAB [id number] WBC Count 13.78 High 3.99-11.19 K/uL LAB [id number] RBC Count 4.85 3.91-5.04 M/uL LAB [id number] Hemoglobin 14.1 11.4-15.2 g/dL LAB [id number] Hematocrit 45.1 High 34.9-44.3 % LAB [id number] Mean Cell Volume 93.0 79.6-97.7 fL LAB [id number] Mean Cell Hgb 29.1 25.9-33.9 pg LAB [id number] Mean Cell Hgb Conc 31.3 Low 31.4-35.9 g/dL LAB [id number] RBC Distribution 13.3 10.8-14.9 % LAB [id number] Platelet Count 216 150-393 K/uL LAB [id number] Mean Platelet Volume 11.4 8.5-12.2 fL Performed By: #### HEMOGC ## ## [facility] (DEFAULT) [address] [place] [address] MAGNESIUM Collected: 12:46 AM Status: F Source: [facility] TYPE CODE TESTS RESULT OUT OF RANGE REFERENCE UNITS LAB [id number] Magnesium 1.8 1.6-2.6 mg/dL Performed By: #### MGO, CHM7 #### [facility] (DEFAULT) [address] [address] CHEM 7 (LYTES,BUN,CREA,GLUC) Collected: 08/10/2024 12:46 AM Status: F Source: [facility] TYPE CODE TESTS RESULT OUT OF RANGE REFERENCE UNITS LAB [id number] Sodium 138 135-145 mmol/L LAB [id number] Potassium 4.9 3.5-5.0 mmol/L LAB [id number] Chloride 103 98-108 mmol/L LAB [id number] CO2 24 21-31 mmol/L LAB [id number] Glucose 186 High Nonfastin -179 mg/dL; Fastin-99 mg/dL LAB [id number] BUN 47 High 7-25 mg/dL LAB [id number] Creatinine 1.36 High 0.50-1.20 mg/dL LAB [id number] Bun/Crea Ratio 35 LAB [id number] Osmolality (Calculated) 308 High 278-305 mOsm/kg LAB [id number] Anion Gap 16 7-17 mmol/L LAB [id number] eGFR, CKD-EPI, Female 40 Low >=60 mL/min/ 1.73m2 Result Comment: Reported eGF R is based on the CKD-EPI 2020 equation using creatinine, age, and sex. Performed By: #### MGO, CHM7 #### [facility] (DEFAULT) [address] [place] [address] SURG PATH REQUEST Collected: 08/09/2024 10:07 AM Sta tus: F Source: [facility] TYPE CODE TESTS RESULT OUT OF RANGE REFERENCE UNITS LAB [id number] Case Report Result Comment: Surgical Pat hology Report Case: [id number] Authorizing Provider: Judson Keith DO Collected: 08/09/2024 10:07 AM Ordering Location: [facility] Received: 08/09/2024 12:13 PM Pathologist: Renae Glez MD Specimen: STOMACH, gastric, r/o HP LAB [id number] Clinical History R/O HP. Associated Diagnosis: None. Medical History: No medical history provided. LAB [id number] Pathologic Diagnosis Result Comment: A. Stomach, biopsy: Focal erosion No Helicobacter pylori identified at 1005 EDT LAB [id number] Microscopic Description A microscopic examination was performed. LAB [id number] Gross Description Result Comment: The specimen is received in one properly labeled container with the patient's name and accession number. A. The specimen is designated "gastric, r/o hp" and consists of five fragments of jackson-pink soft tissue, from 0.2 up to 0.6 cm in greatest dimension. TE 1 Lab Use Only: JobID [id number] Grosser for this case was: Sunshine Gwen LAB Professional Interpretation Performed at: Professional Interpretation Performed at: Result Comment: [facility] For Immediate Release to Patient's [facility]? Yes [address] [address] Performed By: #### SURGP ### # [facility] (DEFAULT) [address] [address] MAGNESIUM Collected: 12:27 AM Status: F Source: [facility] TYPE CODE TESTS RESULT OUT OF RANGE REFERENCE UNITS LAB [id number] Magnesium 1.8 1.6-2.6 mg/dL Performed By: #### MGTrupti, CHM7 #### [facility] (DEFAULT) [address] [place] [address] CHEM 7 (LYTES,BUN,CREA,GLUC) Collected: 08/09/2024 12:27 AM Status: F Source: [facility] TYPE CODE TESTS RESULT OUT OF RANGE REFERENCE UNITS LAB [id number] Sodium 138 135-145 mmol/L LAB [id number] Potassium 4.9 3.5-5.0 mmol/L LAB [id number] Chloride 103 98-108 mmol/L LAB [id number] CO2 26 21-31 mmol/L LAB [id number] Glucose 182 High Nonfastin -179 mg/dL; Fastin-99 mg/dL LAB [id number] BUN 38 High 7-25 mg/dL LAB [id number] Creatinine 1.35 High 0.50-1.20 mg/dL LAB [id number] Bun/Crea Ratio 28 LAB [id number] Osmolality (Calculated) 305 278-305 mOsm/kg LAB [id number] Anion Gap 14 7-17 mmol/L LAB [id number] eGFR, CKD-EPI, Female 40 Low >=60 mL/min/ 1.73m2 Result Comment: Reported eGF R is based on the CKD-EPI 2020 equation using creatinine, age, and sex. Performed By: #### MGO, CHM7 #### [facility] (DEFAULT) [address] [address] PT,INR,PTT Collected: 12:27 AM Status: F Source: [facility] TYPE CODE TESTS RESULT OUT OF RANGE REFERENCE UNITS LAB [id number] PT 13.0 11.9-14.2 sec LAB [id number] INR 1.0 0.9-1.1 LAB [id number] PTT 38.4 High 24.0-34.3 sec Performed By: #### PTPTT ### # [facility] (DEFAULT) [address] [address] CBC,PLATELETS Collected: 08/09/2024 12:27 AM Status: F Source: [facility] TYPE CODE TESTS RESULT OUT OF RANGE REFERENCE UNITS LAB [id number] WBC Count 12.37 High 3.99-11.19 K/uL LAB [id number] RBC Count 4.79 3.91-5.04 M/uL LAB [id number] Hemoglobin 14.1 11.4-15.2 g/dL LAB [id number] Hematocrit 44.4 High 34.9-44.3 % LAB [id number] Mean Cell Volume 92.7 79.6-97.7 fL LAB [id number] Mean Cell Hgb 29.4 25.9-33.9 pg LAB [id number] Mean Cell Hgb Conc 31.8 31.4-35.9 g/dL LAB [id number] RBC Distribution 13.5 10.8-14.9 % LAB [id number] Platelet Count 226 150-393 K/uL LAB [id number] Mean Platelet Volume 11.5 8.5-12.2 fL Performed By: #### HEMOGC ## ## [facility] (DEFAULT) [address] [place] [address] URINALYSIS REFLEX TO CULTURE PERFORMABLE Collected: 08/08/2024 4:40 PM Status: F Source: [facility] Order Comment: For indwellin g catheters, specimen collection is acceptable on catheter day 1 and 2 only. ? TYPE CODE TESTS RESULT OUT OF RANGE REFERENCE UNITS LAB [id number] Color Yellow Yellow LAB [id number] Appearance Urine Cloudy Abnormal Clear LAB [id number] Glucose Urine Negative Negative LAB 5620891122 Ketones Urine Trace Abnormal Negative LAB 6848203744 Specific [place] Urine 1.023 1.001-1.035 LAB [id number] Blood Urine Trace Abnormal Negative LAB [id number] pH Urine 7.0 5.0-7.0 LAB [id number] Protein Urine Trace Abnormal Negative LAB [id number] Urobilinogen Urine 1.0 E.U./dL 0.2 E.U/dL, 1.0 E.U/dL LAB [id number] Nitrites Urine Positive Abnormal Negative LAB [id number] Leukocyte Esterase Large Abnormal Negative LAB [id number] RBC Urine 6-10 Abnormal 0-2 /HPF LAB [id number] WBC Urine > 20 Abnormal 0 - 5 /HPF LAB [id number] Squamous/Epithe lial Cells, Urine 0-2/hpf 0-2/hpf, 3-5/hpf = 1+ LAB [id number] Bacteria PRESENT Abnormal ABSENT Performed By: #### [id number] #### [facility] (DEFAULT) [address] [place] [address] URINE CULTURE Collected: 08/08/2024 4:40 PM Status: F Source: [facility] Order Comment: For indwellin g catheters, specimen collection is acceptable on catheter day 1 and 2 only. [place] vacutainer. Urine must be to the fill line to process (4mls). If minimum volume, send urine in a yellow top vacutainer tube. For indwelling catheters, specimen collection is acceptable on catheter day 1 and 2 only. ? TYPE CODE TESTS RESULT OUT OF RANGE REFERENCE UNITS LAB 70686-0 Amikacin [Susceptibility] <= Unknown ug/mL LAB 46819-0 Ampicillin [Susceptibility] >=32 Resistant ug/mL LAB 74611-3 Ampicillin+Sulba ctam [Susceptibility] >=32 Resistant ug/mL LAB 26198-7 ceFAZolin [Susceptibility] >= Resistant ug/mL Result Comment: Cefazolin collins sceptibility results can be inferred to the following oral cephalosporins: cephalexin, cefuroxime, and cefdinir. LAB 00477-1 Cefepime [Susceptibility] <= Unknown ug/mL LAB 48790-9 cefTRIAXone [Susceptibility] <= Unknown ug/mL LAB 03381-8 Ciprofloxacin [Susceptibility] >= Resistant ug/mL LAB 78779-4 Ertapenem [Susceptibility] <= Unknown ug/mL LAB 43571-8 Gentamicin [Susceptibility] <= Unknown ug/mL LAB 31459-5 Nitrofurantoin [Susceptibility] 128 Resistant ug/mL LAB 31837-7 Piperacillin+De obactam [Susceptibility] 8 Unknown ug/mL LAB 17834-2 Trimethoprim+Sul famethoxazole [Susceptibility] <= Unknown ug/mL LAB 98959-0 levoFLOXacin [Susceptibility] >= Resistant ug/mL Performed By: #### UR #### [facility] (DEFAULT) [address] [place] [address] CT HEAD WITHOUT CONTRAST Observed: 08/08 4:17 PM Status: F Source: [facility] EXAM: CT HEAD WITHOUT CONTRA ST, 08/08/2024 2:15 PM COMPARISON: CT HEAD WITHOUT CONTRAST August 03, 2024 CLINICAL INDICATIONS: 78 years Female Stroke follow up RELEVANT CLINICAL HISTORY: TECHNIQUE: A series of transaxial computerized tomographic images are obtained from base of skull to vertex without intravenous contrast. Axial whole-head and thin section posterior fossa slices are provided. Reformats: Sagittal and coronal. 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 The associated petechial hemorrhage is less acute with increased low density changes, compatible with edema. With No new large territory infarct is seen. Patchy periventricular white matter hypoattenuation is noted which is non-specific, but likely due to chronic small vessel ischemic changes. No new or progressive intracranial hemorrhage is seen. Stable mass effect on the right lateral ventricle. Right to left midline shift measuring approximately 3 mm.. Ventricular size is stable. No progressive hydrocephalus. Skull appears intact. Evidence of prior bilateral cataract surgery. Visualized paranasal sinuses are clear. Visualized mastoid air cells are clear. Atherosclerotic calcifications of the major arteries at the skull base are noted. IMPRESSION: 1. No significant interval change, evolving changes of right basal ganglia infarct and petechial hemorrhage with stable mass effect and midline shift. 2. No new or progressive intracranial hemorrhage. I personally viewed and interpreted these images and I have reviewed and approved this report. ,PLATELETS Collected: 08/08/2024 12:57 AM Status: F Source: [facility] TYPE CODE TESTS RESULT OUT OF RANGE REFERENCE UNITS LAB [id number] WBC Count 10.39 3.99-11.19 K/uL LAB [id number] RBC Count 4.90 3.91-5.04 M/uL LAB [id number] Hemoglobin 14.4 11.4-15.2 g/dL LAB [id number] Hematocrit 45.7 High 34.9-44.3 % LAB [id number] Mean Cell Volume 93.3 79.6-97.7 fL LAB [id number] Mean Cell Hgb 29.4 25.9-33.9 pg LAB [id number] Mean Cell Hgb Conc 31.5 31.4-35.9 g/dL LAB [id number] RBC Distribution 13.6 10.8-14.9 % LAB [id number] Platelet Count 212 150-393 K/uL LAB [id number] Mean Platelet Volume 10.9 8.5-12.2 fL Performed By: #### HEMOGC ## ## [facility] (DEFAULT) [address] [place] [address] MAGNESIUM Collected: 12:57 AM Status: F Source: [facility] TYPE CODE TESTS RESULT OUT OF RANGE REFERENCE UNITS LAB [id number] Magnesium 1.7 1.6-2.6 mg/dL Performed By: #### MGO, CHM7 #### [facility] (DEFAULT) [address] [place] [address] CHEM 7 (LYTES,BUN,CREA,GLUC) Collected: 08/08/2024 12:57 AM Status: F Source: [facility] TYPE CODE TESTS RESULT OUT OF RANGE REFERENCE UNITS LAB [id number] Sodium 140 135-145 mmol/L LAB [id number] Potassium 4.3 3.5-5.0 mmol/L LAB [id number] Chloride 104 98-108 mmol/L LAB [id number] CO2 25 21-31 mmol/L LAB [id number] Glucose 111 Nonfastin -179 mg/dL; Fastin-99 mg/dL LAB [id number] BUN 35 High 7-25 mg/dL LAB [id number] Creatinine 1.15 0.50-1.20 mg/dL LAB [id number] Bun/Crea Ratio 30 LAB [id number] Osmolality (Calculated) 302 278-305 mOsm/kg LAB [id number] Anion Gap 15 7-17 mmol/L LAB [id number] eGFR, CKD-EPI, Female 47 Low >=60 mL/min/ 1.73m2 Result Comment: Reported eGF R is based on the CKD-EPI 2020 equation using creatinine, age, and sex. Performed By: #### HEYDI LYONS7 #### [facility] [address] [address] CBC,PLATELETS Collected: 08/06/2024 11:45 PM Status: F Source: [facility] TYPE CODE TESTS RESULT OUT OF RANGE REFERENCE UNITS LAB [id number] WBC Count 11.30 High 3.99-11.19 K/uL LAB [id number] RBC Count 4.63 3.91-5.04 M/uL LAB [id number] Hemoglobin 13.7 11.4-15.2 g/dL LAB [id number] Hematocrit 43.1 34.9-44.3 % LAB [id number] Mean Cell Volume 93.1 79.6-97.7 fL LAB [id number] Mean Cell Hgb 29.6 25.9-33.9 pg LAB [id number] Mean Cell Hgb Conc 31.8 31.4-35.9 g/dL LAB [id number] RBC Distribution 13.9 10.8-14.9 % LAB [id number] Platelet Count 214 150-393 K/uL LAB [id number] Mean Platelet Volume 11.1 8.5-12.2 fL Performed By: #### HEMOGC ## ## [facility] (DEFAULT) [address] [address] MAGNESIUM Collected: 11:45 PM Status: F Source: [facility] TYPE CODE TESTS RESULT OUT OF RANGE REFERENCE UNITS LAB [id number] Magnesium 1.8 1.6-2.6 mg/dL Performed By: #### CAMERON LYONS #### [facility] [address] [address] CHEM 7 (LYTES,BUN,CREA,GLUC) Collected: 08/06/2024 11:45 PM Status: F Source: [facility] TYPE CODE TESTS RESULT OUT OF RANGE REFERENCE UNITS LAB [id number] Sodium 142 135-145 mmol/L LAB [id number] Potassium 4.2 3.5-5.0 mmol/L LAB [id number] Chloride 105 98-108 mmol/L LAB [id number] CO2 28 21-31 mmol/L LAB [id number] Glucose 90 Nonfastin -179 mg/dL; Fastin-99 mg/dL LAB [id number] BUN 34 High 7-25 mg/dL LAB [id number] Creatinine 1.19 0.50-1.20 mg/dL LAB [id number] Bun/Crea Ratio 29 LAB [id number] Osmolality (Calculated) 304 278-305 mOsm/kg LAB [id number] Anion Gap 13 7-17 mmol/L LAB [id number] eGFR, CKD-EPI, Female 46 Low >=60 mL/min/ 1.73m2 Result Comment: Reported eGF R is based on the CKD-EPI 2020 equation using creatinine, age, and sex. Performed By: #### MGO, CHM7 #### [facility] (DEFAULT) [address] [place] [address] XR FLUORO MODIFIED BARIUM SWALLOW WITH SPEECH Observed: 08/06/2024 11:34 AM Status: F Source: [facility] EXAM: XR FLUORO MODIFIED BAR IUM SWALLOW WITH SPEECH, 08/06/2024 09:37 AM COMPARISON: No prior MBS studies available for comparison. CLINICAL INDICATIONS: Dysphagia. TECHNIQUE: Multiple barium consistencies were administered to evaluate swallow. Lateral videofluoroscopy was performed in conjunction with Speech Pathology. The examination was performed by ARCADIO Nicole. Fluoroscopy Time: 0.6 min. FINDINGS: Pharyngeal Phase: Thin: Inconsistent silent and sensate aspiration. Mildly thick/nectar: Inconsistent silent and sensate to aspiration. Moderately thick/honey: Inconsistent silent and sensate aspiration. Pudding: No penetration or aspiration. Cracker: Not given. A nasoenteric feeding tube is present. Cervical Phase: Functional. There are degenerative changes of the cervical spine. The prevertebral soft tissues appear unremarkable. IMPRESSION: 1. Inconsistent silent and sensate aspiration of thin, mildly thick/nectar, and moderately thick/honey consistencies. 2. No penetration or aspiration with pudding consistency. For additional analysis of the fluoroscopic examination for specific therapeutic recommendations, please see the director cardiac report of the speech pathologist. Examination performed by ARCADIO Nicole, under the direct supervision of Gerry Resendez M.D., who was immediately available on site during the examination. I personally viewed and interpreted these images and I have reviewed and approved this report. ESIUM Collected: 11:55 PM Status: F Source: [facility] TYPE CODE TESTS RESULT OUT OF RANGE REFERENCE UNITS LAB [id number] Magnesium 2.4 1.6-2.6 mg/dL Performed By: #### IPRoby, CHM7 , MGO #### [facility] (DEFAULT) [address] [place], [place] [address] CHEM 7 (LYTES,BUN,CREA,GLUC) Collected: 08/05/2024 11:55 PM Status: F Source: [facility] TYPE CODE TESTS RESULT OUT OF RANGE REFERENCE UNITS LAB [id number] Sodium 144 135-145 mmol/L LAB [id number] Potassium 3.9 3.5-5.0 mmol/L LAB [id number] Chloride 107 98-108 mmol/L LAB [id number] CO2 27 21-31 mmol/L LAB [id number] Glucose 88 Nonfastin -179 mg/dL; Fastin-99 mg/dL LAB [id number] BUN 34 High 7-25 mg/dL LAB [id number] Creatinine 1.19 0.50-1.20 mg/dL LAB [id number] Bun/Crea Ratio 29 LAB [id number] Osmolality (Calculated) 307 High 278-305 mOsm/kg LAB [id number] Anion Gap 14 7-17 mmol/L LAB [id number] eGFR, CKD-EPI, Female 46 Low >=60 mL/min/ 1.73m2 Result Comment: Reported eGF R is based on the CKD-EPI 2020 equation using creatinine, age, and sex. Performed By: #### IPB, CHM7 , MGO #### [facility] (DEFAULT) [address] [address] PHOSPHATE, INORGANIC Collected: 11:55 PM Status: F Source: [facility] TYPE CODE TESTS RESULT OUT OF RANGE REFERENCE UNITS LAB [id number] Phosphorous 3.2 2.2-4.6 mg/dL Performed By: #### IPB, CHM7 , MGO #### [facility] (DEFAULT) [address] [address] IONIZED CALCIUM, WHOLE BLOOD Collected: 08/05/2024 11:55 PM Status: F Source: [facility] TYPE CODE TESTS RESULT OUT OF RANGE REFERENCE UNITS LAB [id number] ICA 4.72 4.60-5.30 mg/dL Performed By: #### ICA #### [facility] (DEFAULT) [address] [address] CBC,PLATELETS Collected: 08/05/2024 11:55 PM Status: F Source: [facility] TYPE CODE TESTS RESULT OUT OF RANGE REFERENCE UNITS LAB [id number] WBC Count 12.14 High 3.99-11.19 K/uL LAB [id number] RBC Count 4.77 3.91-5.04 M/uL LAB [id number] Hemoglobin 13.9 11.4-15.2 g/dL LAB [id number] Hematocrit 44.0 34.9-44.3 % LAB [id number] Mean Cell Volume 92.2 79.6-97.7 fL LAB [id number] Mean Cell Hgb 29.1 25.9-33.9 pg LAB [id number] Mean Cell Hgb Conc 31.6 31.4-35.9 g/dL LAB [id number] RBC Distribution 13.9 10.8-14.9 % LAB [id number] Platelet Count 216 150-393 K/uL LAB [id number] Mean Platelet Volume 10.7 8.5-12.2 fL Performed By: #### HEMOGC ## ## [facility] (DEFAULT) [address] [address] ECHOCARDIOGRAM Observed: 08/05/2024 8:43 AM Status: F Source: [facility] ? No prior study at this ins titution for comparison. ? Left Ventricle: Chamber size is normal. Increased wall thickness. Concentric remodeling is present. Normal global systolic function. Regional wall motion is normal. Ejection fraction is normal (65 - 70%). Unable to assess diastolic function. ? Right Ventricle: Chamber size is mildly enlarged. Systolic function is normal. ? Left Atrium: Chamber size is moderately enlarged. Right atrium: Mildly enlarged. ? Aortic Valve: Trileaflet valve. Non-specific thickening. Leaflet calcification. Leaflet mobility is normal. No regurgitation. No stenosis. ? Mitral Valve: Mild anterior leaflet thickening and calcification. Mild posterior annular calcification. Trace regurgitation. No valve stenosis. ? Tricuspid Valve: Normal leaflets. Leaflet mobility is normal. Trace regurgitation. No stenosis. No echo/Doppler evidence for pulmonary hypertension. Estimated right ventricular systolic pressure is 29 mmHg. ? Aorta: No dilation to extent seen. SOV: 2.97 cm. STJ: 2.58 cm. Ascendin.97 cm. Table formatting from the original result was not included. Images from the original result were not included. [facility] Facility [facility] Patient Information Patient Name ArmandOctober Legal Sex Female Indication for Exam Priority: Routine Dx: Cerebrovascular accident (CVA), unspecified mechanism [I63.9 (ICD-10-CM)] Order Question Reason for Exam Stroke Interpretation Summary Result History is available. ? No prior study at this institution for comparison. ? Left Ventricle: Chamber size is normal. Increased wall thickness. Concentric remodeling is present. Normal global systolic function. Regional wall motion is normal. Ejection fraction is normal (65 - 70%). Unable to assess diastolic function. ? Right Ventricle: Chamber size is mildly enlarged. Systolic function is normal. ? Left Atrium: Chamber size is moderately enlarged. Right atrium: Mildly enlarged. ? Aortic Valve: Trileaflet valve. Non-specific thickening. Leaflet calcification. Leaflet mobility is normal. No regurgitation. No stenosis. ? Mitral Valve: Mild anterior leaflet thickening and calcification. Mild posterior annular calcification. Trace regurgitation. No valve stenosis. ? Tricuspid Valve: Normal leaflets. Leaflet mobility is normal. Trace regurgitation. No stenosis. No echo/Doppler evidence for pulmonary hypertension. Estimated right ventricular systolic pressure is 29 mmHg. ? Aorta: No dilation to extent seen. SOV: 2.97 cm. STJ: 2.58 cm. Ascendin.97 cm. Findings Left Ventricle Chamber size is normal. Increased wall thickness. Concentric remodeling is present. Normal global systolic function. Regional wall motion is normal. Ejection fraction is normal (65 - 70%). Unable to assess diastolic function. Right Ventricle Chamber size is mildly enlarged. Systolic function is normal. Estimated right ventricular systolic pressure is 29 mmHg. Left Atrium Chamber size is moderately enlarged. Right Atrium Chamber size is mildly enlarged. Septum Atrial septum not assessed. Mitral Valve Mild anterior leaflet thickening. Mild anterior leaflet calcification. Mild posterior annular calcification. Trace regurgitation. No valve stenosis. Area by continuity equation is 2.61 cm2. Mean gradient is 3 mmHg. Aortic Valve Trileaflet valve. Non-specific thickening. Leaflet calcification. Leaflet mobility is normal. No regurgitation. No stenosis. Mean gradient: 4 mmHg. Dimensionless Index by VTI: 0.86. Valve area continuity VTI: 2.72 cm2. The valve Vmax is 1.23 m/s. Tricuspid Valve Normal leaflets. Leaflet mobility is normal. Trace regurgitation. No stenosis. No echo/Doppler evidence for pulmonary hypertension. Estimated right ventricular systolic pressure is 29 mmHg. Pulmonic Valve Pulmonic valve not well visualized. Trace regurgitation. No stenosis. Peak gradient is 6 mmHg. Mean gradient is 3 mmHg. Aorta No dilation to extent seen. SOV: 2.97 cm. STJ: 2.58 cm. Ascendin.97 cm. Pericardium No pericardial effusion. IVC/SVC The inferior vena cava is normal in size. Pulmonary Artery Pulmonary artery not assessed. Reading Providers Reading Role Read Date Cluadia Figueroa, Echo [place] 08/05/2024 Left Heart Measurements LV - Systole LVIDD 3.93 cm IVS 1.14 cm LVIDS 2.7 cm PW 1.11 cm LV RWT 0.56 LV Mass Index 77.1 g/m2 LV EDV BP 88 mL LV ESV BP 40 mL BP EF 55 % LV stroke volume BP (ml) 48 mL LV stroke volume index BP 25.26 mL/m2 LV - Diastole e' septal pk fidel 0.1 m/s e' lateral pk fidel 0.08 m/s Avg e' pk fidel 0.09 m/s LV - HCM AV LVOT peak gradient 4 mmHg Left Atrium LA ESV SP 4CH (MOD) 93 mL LA ESV SP 2CH (MOD) 81 mL LA ESV BP (MOD) index 45 mL/m2 Right Heart Measurements RV - 2D RV basal diam 4.56 cm RV mid diam 2.91 cm RV long diam 6.91 cm RV Area diastolic 17.5 cm2 RV Area systolic 11.9 cm2 RV Fractional area change 32 % RV - Doppler TAPSE 2.08 cm RV S' 12.81 cm/s Right Atrium RA vol index 4CH (MOD) 36.32 mL/m2 EST RAP 3 mmHg RA area 4CH (MOD) 22.74 cm2 Great Vessels Aortic Root - End Diastolic Sinus 2.97 cm STJ 2.58 cm Ascending aorta 2.97 cm Inferior Vena Cava IVC ostium 1.64 cm Doppler Measurements - Aortic Valve Stenosis LVOT diameter 2.01 cm LVOT area 3.17 cm2 LVOT peak fidel 0.99 m/s LVOT peak VTI 21.3 cm Stroke Volume 68 cm/mL Stroke volume index 36 Ao peak fidel 1.23 m/s Ao VTI 24.81 cm AV peak gradient 6 mmHG AV mean gradient 4 mmHg DI (VTI) 0.86 m/2 DI (Vmax) 0.8 MARKUS (continuity Vmax) 2.55 cm2 MARKUS index (continuity Vmax) 1.34 m/s MARKUS (continuity VTI) 2.72 cm2 MARKUS index (continuity VTI) 1.43 cm2/m2 LVOT stroke volume 68 cm3 LVOT stroke volume index 35.55 ml/m2 Doppler Measurements - Mitral Valve Stenosis MV VTI 25.92 cm MV peak gradient 6 mmHg MV mean gradient 3 mmHg MV valve area by continuity eq 2.61 cm2 Doppler Measurements - Tricuspid Valve Stenosis IVC ostium 1.64 cm Regurgitation TR pk fidel 2.53 m/s TR pk grad 26 mmHg EST RAP 3 mmHg EST RVSP 29 mmHg Doppler Measurements - Pulmonic Valve Stenosis PV PK FIDEL 1.23 m/s PV peak gradient 6 mmHg PV mean gradient 3 mmHg RVOT peak fidel 1.07 m/s RVOT peak VTI 20.1 cm RVOT peak gradient 5 mmHg Vitals Height Weight BSA (Calculated - sq m) BP Pulse 1.702 m (5' 7") 78 kg (172 lb) 1.9 m2 141/89 99 Performing Staff Nacho Penaloza Study Details A complete echocardiography study (including color flow Doppler, spectral Doppler and M-mode) was performed. Study limitations include patient's inability to turn and patient refusal. Imaging system used: Mobile Armor. Indications Indications for study: stroke/tia. Exam Details Performed Procedure Technologist Supporting Staff Performing Physician ECHOCARDIOGRAM STUDY DETAILS BILLING Nacho [place] Appointment Date/Status Modality Department 08/05/2024 Arrived ECHO TESTING, [facility] ECHOCARDIOGRAPHY ROSS Begin Exam End Exam 08/05/2024 7:44 AM 08/05/2024 8:22 AM Signed at 0843 EDT External Results Report There is an external results report available. Patient Release Status: This result is not viewable because no one can access it in vufindt. ECHOCARDIOGRAM: Patient Communication Released Not seen ABN Associated with this Order There is no ABN associated with this order. MAGNESIUM Collected: 12:27 AM Status: F Source: [facility] TYPE CODE TESTS RESULT OUT OF RANGE REFERENCE UNITS LAB [id number] Magnesium 1.8 1.6-2.6 mg/dL Performed By: #### CAMERON LYONS , IPB #### [facility] (DEFAULT) [address] [place] [address] CHEM 7 (LYTES,BUN,CREA,GLUC) Collected: 08/05/2024 12:27 AM Status: F Source: [facility] TYPE CODE TESTS RESULT OUT OF RANGE REFERENCE UNITS LAB [id number] Sodium 143 135-145 mmol/L LAB [id number] Potassium 3.8 3.5-5.0 mmol/L LAB [id number] Chloride 108 98-108 mmol/L LAB [id number] CO2 25 21-31 mmol/L LAB [id number] Glucose 242 High Nonfastin -179 mg/dL; Fastin-99 mg/dL LAB [id number] BUN 35 High 7-25 mg/dL LAB [id number] Creatinine 1.45 High 0.50-1.20 mg/dL LAB [id number] Bun/Crea Ratio 24 LAB [id number] Osmolality (Calculated) 315 High 278-305 mOsm/kg LAB [id number] Anion Gap 14 7-17 mmol/L LAB [id number] eGFR, CKD-EPI, Female 37 Low >=60 mL/min/ 1.73m2 Result Comment: Reported eGF R is based on the CKD-EPI 2020 equation using creatinine, age, and sex. Performed By: #### HEYDI LYONS7 , IPB #### [facility] [address] [address] PHOSPHATE, INORGANIC Collected: 12:27 AM Status: F Source: [facility] TYPE CODE TESTS RESULT OUT OF RANGE REFERENCE UNITS LAB [id number] Phosphorous 2.7 2.2-4.6 mg/dL Performed By: #### MGO, CHM7 , IPB #### [facility] (DEFAULT) [address] [address] IONIZED CALCIUM, WHOLE BLOOD Collected: 08/05/2024 12:27 AM Status: F Source: [facility] TYPE CODE TESTS RESULT OUT OF RANGE REFERENCE UNITS LAB [id number] ICA 4.69 4.60-5.30 mg/dL Performed By: #### ICA #### [facility] (DEFAULT) [address] [place] [address] CBC,PLATELETS Collected: 08/05/2024 12:27 AM Status: F Source[facility] TYPE CODE TESTS RESULT OUT OF RANGE REFERENCE UNITS LAB [id number] WBC Count 10.61 3.99-11.19 K/uL LAB [id number] RBC Count 4.30 3.91-5.04 M/uL LAB [id number] Hemoglobin 12.6 11.4-15.2 g/dL LAB [id number] Hematocrit 39.6 34.9-44.3 % LAB [id number] Mean Cell Volume 92.1 79.6-97.7 fL LAB [id number] Mean Cell Hgb 29.3 25.9-33.9 pg LAB [id number] Mean Cell Hgb Conc 31.8 31.4-35.9 g/dL LAB [id number] RBC Distribution 13.9 10.8-14.9 % LAB [id number] Platelet Count 198 150-393 K/uL LAB [id number] Mean Platelet Volume 10.7 8.5-12.2 fL Performed By: #### HEMOGC ## ## [facility] (DEFAULT) [address] [place] [address] SODIUM Collected: 5:25 PM Status: F Source: [facility] Order Comment: While on 3% H ypertonic Saline. TYPE CODE TESTS RESULT OUT OF RANGE REFERENCE UNITS LAB [id number] Sodium 142 135-145 mmol/L Performed By: #### BRITTANY #### [facility] (DEFAULT) [address] [address] SODIUM Collected: 5 11:14 AM Status: F Source[facility] Order Comment: While on 3% H ypertonic Saline. TYPE CODE TESTS RESULT OUT OF RANGE REFERENCE UNITS LAB [id number] Sodium 141 135-145 mmol/L Performed By: #### BRITTANY #### [facility] (DEFAULT) [address] [address] SODIUM Collected: 5 6:20 AM Status: F Source[facility] Order Comment: While on 3% H ypertonic Saline. TYPE CODE TESTS RESULT OUT OF RANGE REFERENCE UNITS LAB [id number] Sodium 143 135-145 mmol/L Performed By: #### BRITTANY #### [facility] (DEFAULT) [address] [address] [address] HEAD WITHOUT CONTRAST Observed: 08/04 12:09 AM Status: F Source[facility] EXAM: CT HEAD WITHOUT CONTRA ST, 08/03/2024 9:05 PM COMPARISON: CT HEAD WITHOUT CONTRAST August 03, 2024, CT HEAD (OUTSIDE IMAGE) August 02, 2024 CLINICAL INDICATIONS: 78 years Female Exam change, stroke/IPH follow up RELEVANT CLINICAL HISTORY: TECHNIQUE: A series of transaxial computerized tomographic images are obtained from base of skull to vertex without intravenous contrast. Axial whole-head and thin section posterior fossa slices are provided. Reformats: Sagittal and coronal. FINDINGS: Images are degraded by patient motion artifact. Findings have not significantly changed compared to prior. Again seen is an acute right basal ganglia infarct with unchanged confluent petechial hemorrhage. This is associated mass effect with partial effacement of the right lateral ventricle but no significant midline shift. Remote lacunar infarct in left basal ganglia. Patchy periventricular hypodensities, likely chronic small vessel ischemic disease Ventricles are normal in size and configuration for patient age. Skull appears intact. Evidence of prior bilateral cataract surgery. Visualized paranasal sinuses are clear. IMPRESSION: Stable exam. ESIUM Collected: 12:03 AM Status: F Source: [facility] TYPE CODE TESTS RESULT OUT OF RANGE REFERENCE UNITS LAB [id number] Magnesium 1.9 1.6-2.6 mg/dL Performed By: #### HEYDI LYONS7 , IPB #### [facility] [address] [address] PHOSPHATE, INORGANIC Collected: 12:03 AM Status: F Source: [facility] TYPE CODE TESTS RESULT OUT OF RANGE REFERENCE UNITS LAB [id number] Phosphorous 2.8 2.2-4.6 mg/dL Performed By: #### CAMERON LYONS , IPB #### [facility] (DEFAULT) [address] [address] CHEM 7 (LYTES,BUN,CREA,GLUC) Collected: 08/04/2024 12:03 AM Status: F Source: [facility] TYPE CODE TESTS RESULT OUT OF RANGE REFERENCE UNITS LAB [id number] Sodium 145 135-145 mmol/L LAB [id number] Potassium 4.0 3.5-5.0 mmol/L LAB [id number] Chloride 109 High 98-108 mmol/L LAB [id number] CO2 24 21-31 mmol/L LAB [id number] Glucose 181 High Nonfastin -179 mg/dL; Fastin-99 mg/dL LAB [id number] BUN 26 High 7-25 mg/dL LAB [id number] Creatinine 1.47 High 0.50-1.20 mg/dL LAB [id number] Bun/Crea Ratio 18 LAB [id number] Osmolality (Calculated) 312 High 278-305 mOsm/kg LAB [id number] Anion Gap 16 7-17 mmol/L LAB [id number] eGFR, CKD-EPI, Female 35 Low >=60 mL/min/ 1.73m2 Result Comment: Reported eGF R is based on the CKD-EPI 2020 equation using creatinine, age, and sex. Performed By: #### HILARIA LYONSM7 , IPB #### [facility] (DEFAULT) [address] [place] [address] CBC,PLATELETS Collected: 08/04/2024 12:03 AM Status: F Source: [facility] TYPE CODE TESTS RESULT OUT OF RANGE REFERENCE UNITS LAB [id number] WBC Count 11.41 High 3.99-11.19 K/uL LAB [id number] RBC Count 4.43 3.91-5.04 M/uL LAB [id number] Hemoglobin 12.7 11.4-15.2 g/dL LAB [id number] Hematocrit 40.8 34.9-44.3 % LAB [id number] Mean Cell Volume 92.1 79.6-97.7 fL LAB [id number] Mean Cell Hgb 28.7 25.9-33.9 pg LAB [id number] Mean Cell Hgb Conc 31.1 Low 31.4-35.9 g/dL LAB [id number] RBC Distribution 13.7 10.8-14.9 % LAB [id number] Platelet Count 228 150-393 K/uL LAB [id number] Mean Platelet Volume 10.8 8.5-12.2 fL Performed By: #### HEMOGC ## ## [facility] (DEFAULT) [address] [place] [address] IONIZED CALCIUM, WHOLE BLOOD Collected: 08/04/2024 12:03 AM Status: F Source: [facility] TYPE CODE TESTS RESULT OUT OF RANGE REFERENCE UNITS LAB [id number] ICA 4.80 4.60-5.30 mg/dL Performed By: #### ICA #### [facility] (DEFAULT) [address] [place] [address] SODIUM Collected: 6:27 PM Status: F Source: [facility] Order Comment: While on 3% H ypertonic Saline. TYPE CODE TESTS RESULT OUT OF RANGE REFERENCE UNITS LAB [id number] Sodium 139 135-145 mmol/L Performed By: #### BRITTANY #### [facility] (DEFAULT) [address] [place] [address] XR ABDOMEN 1 VIEW PORTABLE Observed: 2:02 PM Status: F Source: [facility] EXAM: XR ABDOMEN 1 VIEW PORT ABLE, 08/03/2024 13:51 PM COMPARISON: CT ABDOMEN/PELVIS WITH CONTRAST VASCULAR TRAUMA August 02, 2024 CLINICAL INDICATIONS: DHT placement FINDINGS: Tubes: Enteric tube terminates in the expected region of the proximal second portion of the duodenum. Bowel gas pattern: No significantly dilated bowel. No visible free air. Abnormal calcifications/Radiopacities: Cholelithiasis. Bones: No acute abnormality. Other findings: None. IMPRESSION: Enteric tube terminates in the expected region of the proximal second portion of the duodenum. HEAD WITHOUT CONTRAST Observed: 08/03 12:55 PM Status: F Source: [facility] EXAM: CT HEAD WITHOUT CONTRA ST, 08/03/2024 9:36 AM COMPARISON: MRI from earlier today 08/03/2024 CLINICAL INDICATIONS: 78 years Female Stability scan for new hemorrhagic conversion of ischemic stroke RELEVANT CLINICAL HISTORY: 6 hour stability scan. Please obtain 6 hours after MRI brain; TECHNIQUE: A series of transaxial computerized tomographic images are obtained from base of skull to vertex without intravenous contrast. Axial whole-head and thin section posterior fossa slices are provided. Reformats: Sagittal and coronal. FINDINGS: Acute hemorrhage is again noted in the right basal ganglia with mass effect on the right lateral ventricle and 2 mm midline shift to the left. Mild surrounding edema. Underlying infarct better seen on the recent MRI. Size of the ventricles remains stable. Changes of chronic microvascular disease. IMPRESSION: Acute right basal ganglia hemorrhage with surrounding mass effect and midline shift stable since the MRI from earlier today SPINE CERVICAL WITHOUT CONTRAST Observed: 08/03/2024 11:58 AM Status: F Source: [facility] EXAM: MRI SPINE CERVICAL WIT HOUT CONTRAST, 08/03/2024 04:14 AM COMPARISON: CT SPINE CERVICAL WITHOUT CONTRAST August 02, 2024 CLINICAL INDICATIONS: 78 years Female Clear c-spine, concern for trauma TECHNIQUE: A series of sagittal and axial multisequence images of the cervical spine were obtained without intravenous contrast using standard protocol. Study was performed at 3 [address]. FINDINGS: Unchanged appearance of anterolisthesis of C3 on C4 and C4 on C5. Vertebral bodies are within normal limits in height and marrow signal. Intraosseous hemangioma within the T2 vertebral body. Prevertebral and paraspinal soft tissues are within normal limits. Multilevel degenerative disc disease with loss of disc height and multilevel disc protrusions. Visualized spinal cord is within normal limits in caliber and signal. Craniocervical junction and visualized posterior fossa are within normal limits. By levels: Multilevel uncovertebral and facet hypertrophic changes. C1-C2: Atlanto-axial relationship is within normal limits. C2-C3: No disc herniation or cervical stenosis. Mild left neuroforaminal narrowing. C3-C4: No disc herniation or cervical stenosis. Severe left and moderate right foraminal narrowing. C4-C5: Posterior disc osteophyte complex resulting in moderate central canal stenosis. Severe right and moderate to severe left neuroforaminal narrowing. C5-C6: Central disc protrusion without significant central canal stenosis. Mild left neural foraminal narrowing. C6-C7: Posterior disc osteophyte complex and bilateral facet and ligamentum flavum hypertrophy resulting in mild central canal stenosis. Mild neural foraminal narrowing. C7-T1: Central disc protrusion without significant central canal stenosis. No significant foraminal narrowing. IMPRESSION: Grade 1 anterolistheses of C3 on C4 and C4 on C5 favored to be degenerative in nature given facet arthropathies. No MRI evidence of ligamentous injury. Mild bone marrow edema along the inferior endplate of C6. This could either relate to degenerative disc disease or recent trauma. No retropulsion is noted. Moderate spinal canal stenosis at C4-C5. No cord signal abnormality. I personally viewed and interpreted these images and I have reviewed and approved this report. BRAIN WITHOUT CONTRAST Observed: 11:32 AM Status: F Source: [facility] EXAM: MRI BRAIN WITHOUT CONT RAST, 08/03/2024 04:14 AM COMPARISON: No priors available for comparison. CLINICAL INDICATIONS: 78 years Female Stroke Workup; Stroke Workup RELEVANT CLINICAL HISTORY: TECHNIQUE: A series of multisequence, multiplanar images of the brain are obtained without intravenous contrast. FINDINGS: Interval development of right basal ganglia hemorrhage with mass effect on the right lateral ventricle and effacement of the ventricle. Underlying restricted diffusion No significant midline shift is noted. Changes of chronic microvascular disease. 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 Mass effect with effacement of the right lateral ventricle and midline shift to the left. 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 UM Collected: 11:23 AM Status: F Source: [facility] Order Comment: While on 3% H ypertonic Saline. TYPE CODE TESTS RESULT OUT OF RANGE REFERENCE UNITS LAB [id number] Sodium 134 Low 135-145 mmol/L Performed By: #### BRITTANY #### [facility] (DEFAULT) [address] [place] [address] CT CHEST WITH CONTRAST VASCULAR TRAUMA Observed: 08/03/2024 9:28 AM Status: F Source: [facility] EXAM: CT CHEST WITH CONTRAST VASCULAR TRAUMA, 08/02/2024 22:55 PM CLINICAL INDICATIONS: Pt endorses fall the morning of 08/02/24, trauma workup COMPARISON: No prior studies available for comparison. TECHNIQUE: The imaging was performed using a MDCT system. It included a spiral acquisition from the shoulders to the upper abdomen in order to assess the entire thoracic aorta and arch vessels, as well as suprarenal abdominal aorta. 3D reconstruction was performed on an independent workstation based on specific patient condition and were reviewed and approved by Kayla Newell M.D.. CONTRAST: iohexol (OMNIPAQUE) 350 MG/ML injection 1-171 mL; Route of Administration: Intravenous; Dose: 100 mL. FINDINGS: Chest Wall: Degenerative changes of the thoracic spine Mediastinum: Normal, without adenopathy Fabby: Normal, without adenopathy Pleural Spaces: Normal, without thickening/effusion or pneumothorax Lung Parenchyma: Expiratory acquisition of images. Clear except for mild bibasilar atelectasis. Pericardium: Normal, without thickening/effusion Atria: Normal, without thrombus Right Ventricle: Normal Left Ventricle: Normal Coronary Arteries: Multivessel coronary calcifications. Valves: Normal Pulmonary Arteries: Normal Thoracic Aorta: No aneurysmal dilatation or dissection. Arch Branches: Normal Please refer to concurrent CT abdomen and pelvis for full description of the intra-abdominal findings. IMPRESSION: No acute traumatic findings within the chest. I personally viewed and interpreted these images and I have reviewed and approved this report. ORBITS WITHOUT CONTRAST Observed: 8:37 AM Status: F Source: [facility] EXAM: CT ORBITS WITHOUT CONT RAST, 08/02/2024 22:54 PM COMPARISON: No priors available for comparison. CLINICAL INDICATIONS: 78 years Female Pt endorses fall morning of 08/02/24, has abrasion to face, trauma workup RELEVANT CLINICAL HISTORY: TECHNIQUE: A series of thin section transaxial computerized tomographic images are obtained through the level of the orbits. Coronal, Sagittal, and axial reformats are provided. FINDINGS: The bony margins of the orbits are intact, without evidence of fracture or bone destruction. Periorbital soft tissues are unremarkable. Globes appear unremarkable. IMPRESSION: Motion compromised exam limiting evaluation for subtle fractures. No displaced large fractures identified Partially residual visualization of right basal ganglia hyperdensity concerning for hemorrhage. SPINE CERVICAL WITHOUT CONTRAST Observed: 08/03/2024 8:26 AM Status: F Source: [facility] EXAM: CT SPINE CERVICAL WITH OUT CONTRAST, 08/02/2024 22:54 PM COMPARISON: No priors available for comparison. CLINICAL INDICATIONS: 78 years Female Trauma workup RELEVANT CLINICAL HISTORY: TECHNIQUE: A series of transaxial multislice computerized tomographic thin section source images are obtained with helical technique from clivus to upper thoracic spine without contrast. Reformats: Axial, sagittal, coronal. FINDINGS: Anterolisthesis of C4 on C5 of approximately 4 mm. The vertebral body heights are maintained. The craniocervical junction is intact. The paraspinal soft tissues are grossly unremarkable. Uncovertebral and facet hypertrophic changes causing varying degrees of neural foramina narrowing most pronounced at the left side at C3-C4 bilaterally at C4-C5 levels. No bony canal stenosis is noted. IMPRESSION: Anterolisthesis of C4 over C5 without any underlying fractures or prevertebral soft tissue edema. Findings are likely chronic in nature. Degenerative changes as described above. No evidence of acute fractures identified WRIST RIGHT 3+ VIEWS Observed: 2024 7:12 AM Status: F Source: [facility] EXAM: XR ELBOW RIGHT 2 VIEWS , XR HUMERUS RIGHT 2+ VIEWS, XR WRIST RIGHT 3+ VIEWS, 08/02/2024 23:24 PM (accession [id number]), 08/02/2024 23:24 PM (accession [id number]), 08/02/2024 23:23 PM (accession [id number]) COMPARISON: No prior studies available for comparison. CLINICAL HISTORY: , Trauma workup, fall on outstretched RUE FINDINGS: 3 images of the right wrist: Diminished bone mineralization. Chondrocalcinosis. 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 Joint appear anatomically aligned. No acute fracture or dislocation. 2 images of the right humerus: No fracture or dislocation. Joints appear anatomically aligned. No soft tissue abnormality identified. 2 images of the right elbow: Intravenous catheter tubing in place. Chronic medial and lateral epicondylitis. No joint effusion. No acute fracture or dislocation. IMPRESSION: No acute osseous abnormality. HUMERUS RIGHT 2+ VIEWS Observed: 07/14 7:12 AM Status: F Source: [facility] EXAM: XR ELBOW RIGHT 2 VIEWS , XR HUMERUS RIGHT 2+ VIEWS, XR WRIST RIGHT 3+ VIEWS, 08/02/2024 23:24 PM (accession [id number]), 08/02/2024 23:24 PM (accession [id number]), 08/02/2024 23:23 PM (accession [id number]) COMPARISON: No prior studies available for comparison. CLINICAL HISTORY: , Trauma workup, fall on outstretched RUE FINDINGS: 3 images of the right wrist: Diminished bone mineralization. Chondrocalcinosis. 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 Joint appear anatomically aligned. No acute fracture or dislocation. 2 images of the right humerus: No fracture or dislocation. Joints appear anatomically aligned. No soft tissue abnormality identified. 2 images of the right elbow: Intravenous catheter tubing in place. Chronic medial and lateral epicondylitis. No joint effusion. No acute fracture or dislocation. IMPRESSION: No acute osseous abnormality. ELBOW RIGHT 2 VIEWS Observed: 7:12 AM Status: F Source: [facility] EXAM: XR ELBOW RIGHT 2 VIEWS , XR HUMERUS RIGHT 2+ VIEWS, XR WRIST RIGHT 3+ VIEWS, 08/02/2024 23:24 PM (accession [id number]), 08/02/2024 23:24 PM (accession [id number]), 08/02/2024 23:23 PM (accession [id number]) COMPARISON: No prior studies available for comparison. CLINICAL HISTORY: , Trauma workup, fall on outstretched RUE FINDINGS: 3 images of the right wrist: Diminished bone mineralization. Chondrocalcinosis. 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 Joint appear anatomically aligned. No acute fracture or dislocation. 2 images of the right humerus: No fracture or dislocation. Joints appear anatomically aligned. No soft tissue abnormality identified. 2 images of the right elbow: Intravenous catheter tubing in place. Chronic medial and lateral epicondylitis. No joint effusion. No acute fracture or dislocation. IMPRESSION: No acute osseous abnormality. H TYPE RECONFIRMATION Collected: 12:02 AM Status: F Source: [facility] TYPE CODE TESTS RESULT OUT OF RANGE REFERENCE UNITS LAB [id number] ABO/RH(D) TYPE O NEG Performed By: #### TYPEC ### # [facility] (DEFAULT) [address] [place] [address] CBC,PLATELETS Collected: 08/03/2024 12:02 AM Status: F Source: [facility] TYPE CODE TESTS RESULT OUT OF RANGE REFERENCE UNITS LAB [id number] WBC Count 8.43 3.99-11.19 K/uL LAB [id number] RBC Count 4.63 3.91-5.04 M/uL LAB [id number] Hemoglobin 13.5 11.4-15.2 g/dL LAB [id number] Hematocrit 42.8 34.9-44.3 % LAB [id number] Mean Cell Volume 92.4 79.6-97.7 fL LAB [id number] Mean Cell Hgb 29.2 25.9-33.9 pg LAB [id number] Mean Cell Hgb Conc 31.5 31.4-35.9 g/dL LAB [id number] RBC Distribution 13.2 10.8-14.9 % LAB [id number] Platelet Count 227 150-393 K/uL LAB [id number] Mean Platelet Volume 11.2 8.5-12.2 fL Performed By: #### HEMOGC ## ## [facility] (DEFAULT) [address] [place] [address] MAGNESIUM Collected: 12:02 AM Status: F Source: [facility] TYPE CODE TESTS RESULT OUT OF RANGE REFERENCE UNITS LAB [id number] Magnesium 2.1 1.6-2.6 mg/dL Performed By: #### IPB, CHM7 , MGO #### [facility] (DEFAULT) [address] [place] [address] CHEM 7 (LYTES,BUN,CREA,GLUC) Collected: 08/03/2024 12:02 AM Status: F Source: [facility] TYPE CODE TESTS RESULT OUT OF RANGE REFERENCE UNITS LAB [id number] Sodium 138 135-145 mmol/L LAB [id number] Potassium 4.3 3.5-5.0 mmol/L Result Comment: Specimen sli ghtly hemolyzed. Potassium results may be falsey elevated by more than 0.5 mmol/L. Consider recollection. LAB [id number] Chloride 103 98-108 mmol/L LAB [id number] CO2 23 21-31 mmol/L LAB [id number] Glucose 151 Nonfastin -179 mg/dL; Fastin-99 mg/dL LAB [id number] BUN 18 7-25 mg/dL LAB [id number] Creatinine 1.35 High 0.50-1.20 mg/dL LAB [id number] Bun/Crea Ratio 13 LAB [id number] Osmolality (Calculated) 295 278-305 mOsm/kg LAB [id number] Anion Gap 16 7-17 mmol/L LAB [id number] eGFR, CKD-EPI, Female 39 Low >=60 mL/min/ 1.73m2 Result Comment: Reported eGF R is based on the CKD-EPI 2020 equation using creatinine, age, and sex. Performed By: #### IPB, CHM7 , MGO #### [facility] (DEFAULT) [address] [address] PHOSPHATE, INORGANIC Collected: 12:02 AM Status: F Source: [facility] TYPE CODE TESTS RESULT OUT OF RANGE REFERENCE UNITS LAB [id number] Phosphorous 3.5 2.2-4.6 mg/dL Performed By: #### IPB, CHM7 , MGO #### [facility] (DEFAULT) [address] [address] IONIZED CALCIUM, WHOLE BLOOD Collected: 08/03/2024 12:02 AM Status: F Source: [facility] TYPE CODE TESTS RESULT OUT OF RANGE REFERENCE UNITS LAB [id number] ICA 4.24 Low 4.60-5.30 mg/dL Performed By: #### ICA #### [facility] (DEFAULT) [address] [address] [address] ABDOMEN/PELVIS WITH CONTRAST VASCULAR TRAUMA Observed: 08/02/2024 11:34 PM Status: F Source: [facility] EXAM: CT ABDOMEN/PELVIS WITH CONTRAST VASCULAR TRAUMA, 08/02/2024 22:55 PM COMPARISON: No priors available for comparison. CLINICAL INDICATIONS: Pt endorses fall morning of 08/02/24, trauma workup TECHNIQUE: Dual phase trauma scan: CT axial images of the abdomen and pelvis were performed following the administration of intravenous contrast in the arterial phase. CT images were also obtained through the abdomen in the portal venous phase. No oral contrast was administered per trauma protocol. Multiplanar reformats were generated. Volume rendering technique was used to create 3D reconstructed images of the abdomen and pelvis. The reformatted images were reviewed and approved by Edson Head MD. CONTRAST: iohexol (OMNIPAQUE) 350 MG/ML injection 1-171 mL; Route of Administration: Intravenous; Dose: 100 mL. FINDINGS: Lung Bases: Please see dedicated chest CT scan of the same date for full description of the intra-thoracic contents. Liver: Normal. Gallbladder: Cholelithiasis. No pericholecystic fluid or gallbladder wall thickening. Bile Ducts: Normal in caliber. Spleen: Normal. Pancreas: Normal. Adrenals: Normal. Right Kidney: Normal. No stones. No hydronephrosis. Left Kidney: Normal. No stones. No hydronephrosis. Gastrointestinal: Normal bowel caliber and wall thickness. Peritoneum/retroperitoneum: No ascites. Lymph nodes: No enlarged or morphologically abnormal lymph nodes. Vasculature: The abdominal aorta is normal in course and caliber. Patent celiac and superior mesenteric arteries. Patent portal, splenic, and superior mesenteric veins. Moderate calcific atherosclerosis. Bladder: Decompressed by a Gallegos catheter. Pelvic Organs: Normal. Body Wall: Normal. Bones: Normal for patient age. No aggressive lesion. IMPRESSION: 1. No acute traumatic findings within the abdomen or pelvis. Hepatic trauma grade: None. Spleen trauma grade: None. Kidney trauma grade: None. AND SCREEN Collected: 08/02/2024 6:43 PM Status : F Source: [facility] TYPE CODE TESTS RESULT OUT OF RANGE REFERENCE UNITS LAB [id number] ABO/RH(D) TYPE O NEG LAB OUTD Specimen Expiration 08/05/2024 23:59 LAB PERCENTAS ANTIBODY SCREEN NEG Performed By: #### XM #### [facility] (DEFAULT) [address] [place] [address] MAGNESIUM Collected: 6:43 PM Status: F Source: [facility] TYPE CODE TESTS RESULT OUT OF RANGE REFERENCE UNITS LAB [id number] Magnesium 1.2 Low 1.6-2.6 mg/dL Performed By: #### KERMIT, YNTB NATIONAL FACILITIES MANAGER, MGO, CHM7, LIPDR #### [facility] (DEFAULT) [address] [address] CHEM 7 (LYTES,BUN,CREA,GLUC) Collected: 08/02/2024 6:43 PM Status: F Source: [facility] TYPE CODE TESTS RESULT OUT OF RANGE REFERENCE UNITS LAB [id number] Sodium 139 135-145 mmol/L LAB [id number] Potassium 3.7 3.5-5.0 mmol/L LAB [id number] Chloride 105 98-108 mmol/L LAB [id number] CO2 22 21-31 mmol/L LAB [id number] Glucose 210 High Nonfastin -179 mg/dL; Fastin-99 mg/dL LAB [id number] BUN 18 7-25 mg/dL LAB [id number] Creatinine 1.37 High 0.50-1.20 mg/dL LAB [id number] Bun/Crea Ratio 13 LAB [id number] Osmolality (Calculated) 299 278-305 mOsm/kg LAB [id number] Anion Gap 16 7-17 mmol/L LAB [id number] eGFR, CKD-EPI, Female 38 Low >=60 mL/min/ 1.73m2 Result Comment: Reported eGF R is based on the CKD-EPI 2020 equation using creatinine, age, and sex. Performed By: #### KERMIT, YWILLI NATIONAL FACILITIES MANAGER, MGO, CHM7, LIPDR #### [facility] (DEFAULT) [address] [address] HEPATIC FUNCTION PANEL Collected: 08/02/2024 6:43 PM Status: F Source: [facility] TYPE CODE TESTS RESULT OUT OF RANGE REFERENCE UNITS LAB [id number] Albumin 3.5 3.5-5.0 g/dL LAB [id number] Bilirubin Direct 0.1 <0.3 mg/dL LAB [id number] Bilirubin Total 0.6 <1.5 mg/dL LAB [id number] ALP 117 32-126 U/L LAB [id number] ALT 10 9-48 U/L LAB [id number] AST 17 10-39 U/L LAB [id number] Total Protein 6.3 Low 6.4-8.3 g/dL Performed By: #### KERMIT, YNTB NATIONAL FACILITIES MANAGER, MGO, CHM7, LIPDR #### [facility] (DEFAULT) [address] [place] [address] LIPID PANEL WITH REFLEX TO MEASURED LDL Collected: 08/02/2024 6:43 PM Status: F Source: [facility] TYPE CODE TESTS RESULT OUT OF RANGE REFERENCE UNITS LAB [id number] HDL Cholesterol 38 Low >=40 mg/dL Result Comment: [<40 mg/dL: Low (High Risk)] [>59 mg/dL: High (Low Risk)] LAB [id number] Calculated LDL Cholesterol 84 0-99 mg/dL Result Comment: [<100 mg/dL: Optimal] [100-129 mg/dL: Near Optimal] [130-159 mg/dL: Borderline High] [160-189 mg/dL: High] [>189 mg/dL: Very High] LAB [id number] Total Cholesterol/HDL Ratio 3.7 <4.5 LAB [id number] Non HDL Cholesterol 103 <130 mg/dL LAB [id number] Triglycerides 96 <150 mg/dL Result Comment: [<150 mg/dL: Desirable] [150-199 mg/dL: Borderline] [200-499 mg/dL: High] [>500 mg/dL: Very High] LAB [id number] Cholesterol 141 <200 mg/dL Result Comment: [<200 mg/dL: Desirable] [200-239 mg/dL: Borderline High] [>239 mg/dL: High] Performed By: #### KERMIT, YNTB NATIONAL FACILITIES MANAGER, MGO, CHM7, LIPDR #### [facility] (DEFAULT) [address] [address] NT-PRO B-TYPE NATRIURETIC PEPTIDE Collected: 08/02/2024 6:43 PM Status: F Source: [facility] TYPE CODE TESTS RESULT OUT OF RANGE REFERENCE UNITS LAB [id number] NT-Pro B-Type Natriuretic Peptide 1115 High <=540 pg/mL Performed By: #### KERMIT, YNTB NATIONAL FACILITIES MANAGER, MGO, CHM7, LIPDR #### [facility] (DEFAULT) [address] [address] TSH W/FT4 REFLEX Collected: 6:43 PM Status: F Source: [facility] TYPE CODE TESTS RESULT OUT OF RANGE REFERENCE UNITS LAB [id number] TSH 1.662 0.550-4.780 uIU/mL Performed By: #### TSHQR ### # [facility] (DEFAULT) [address] [place] [address] CBC,PLATELETS Collected: 08/02/2024 6:43 PM Status: F Source: [facility] TYPE CODE TESTS RESULT OUT OF RANGE REFERENCE UNITS LAB [id number] WBC Count 8.16 3.99-11.19 K/uL LAB [id number] RBC Count 4.76 3.91-5.04 M/uL LAB [id number] Hemoglobin 14.0 11.4-15.2 g/dL LAB [id number] Hematocrit 43.8 34.9-44.3 % LAB [id number] Mean Cell Volume 92.0 79.6-97.7 fL LAB [id number] Mean Cell Hgb 29.4 25.9-33.9 pg LAB [id number] Mean Cell Hgb Conc 32.0 31.4-35.9 g/dL LAB [id number] RBC Distribution 13.3 10.8-14.9 % LAB [id number] Platelet Count 245 150-393 K/uL LAB [id number] Mean Platelet Volume 10.8 8.5-12.2 fL Performed By: #### HEMOGC ## ## [facility] (DEFAULT) [address] [place] [address] HIGH SENSITIVITY TROPONIN I - SINGLE ORDER Collected: 08/02/2024 6:43 PM Status: F Source: [facility] Order Comment: Acute Coronar y Syndrome (ACS): Initial Evaluation and Management: [email or web address] [email or web address] [email or web address]#search=[email or web address] TYPE CODE TESTS RESULT OUT OF RANGE REFERENCE UNITS LAB [id number] hs-Troponin I 9 <34 ng/L Performed By: #### LABHSTI1 #### [facility] (DEFAULT) [address] [address] PT,INR,PTT Collected: 6:43 PM Status: F Source: [facility] TYPE CODE TESTS RESULT OUT OF RANGE REFERENCE UNITS LAB [id number] PT 13.9 11.9-14.2 sec LAB [id number] INR 1.1 0.9-1.1 LAB [id number] PTT 26.9 24.0-34.3 sec Performed By: #### PTPTT ### # [facility] (DEFAULT) [address] [address] HEMOGLOBIN A1C Collected: 08/02/2024 6:43 PM Status: F Source: [facility] TYPE CODE TESTS RESULT OUT OF RANGE REFERENCE UNITS LAB [id number] Hemoglobin A1C HPLC 7.8 High 4.7-5.6 % LAB [id number] Estimated Average Glucose 177 mg/dL Performed By: #### A1CB #### [facility] (DEFAULT) [address] [place] [address] VON WILLEBRAND FACTOR AG Collected: 08/02/2024 6:43 P M Status: F Source: [facility] TYPE CODE TESTS RESULT OUT OF RANGE REFERENCE UNITS LAB [id number] Von Willebrand Factor Antigen 230 High 50-180 % Performed By: #### VWFAG ### # [facility] [facility] (DEFAULT) [address] [place] [id number] SCREEN: MRSA/MSSA Collected: 08/02/2024 6:43 PM Stat us: F Source: [facility] Order Comment: Collect with an ESWAB - Anterior Nares for MRSA + MSSA This test was performed using a real time PCR assay. Results should be interpreted in conjunction with other clinical and laboratory findings. A positive result does not necessarily indicate the presence of viable organism. This test should not be used as a test of cure. For E-swab specimens, this test was developed and its performance characteristics determined by the Clinical Microbiology Laboratory at [facility]. It has not been cleared or approved by the FDA.The laboratory is regulated under CLIA as qualified to perform high-complexity testing. This test is used for clinical purposes. It should not be regarded as investigational or for research. TYPE CODE TESTS RESULT OUT OF RANGE REFERENCE UNITS LAB [id number] Staphylococcus Aureus By Pcr Negative Negative LAB [id number] Methicillin Resistant S. Aureus By Pcr Negative Negative Performed By: #### SCRSB ### # U [facility] (DEFAULT) [address] [place] [id number] URINALYSIS REFLEX TO CULTURE PERFORMABLE Collected: 08/02/2024 3:22 PM Status: F Source: [facility] Order Comment: For indwellin g catheters, specimen collection is acceptable on catheter day 1 and 2 only. ? TYPE CODE TESTS RESULT OUT OF RANGE REFERENCE UNITS LAB [id number] Color Yellow Yellow LAB [id number] Appearance Urine Clear Clear LAB [id number] Glucose Urine 500 mg/dL Abnormal Negative LAB [id number] Ketones Urine Negative Negative LAB [id number] Specific [place] Urine 1.022 1.001-1.035 LAB [id number] Blood Urine Small Abnormal Negative LAB [id number] pH Urine 6.5 5.0-7.0 LAB [id number] Protein Urine Negative Negative LAB [id number] Urobilinogen Urine 0.2 E.U./dL 0.2 E.U/dL, 1.0 E.U/dL LAB [id number] Nitrites Urine Negative Negative LAB [id number] Leukocyte Esterase Moderate Abnormal Negative LAB [id number] RBC Urine 3-5 Abnormal 0-2 /HPF LAB [id number] WBC Urine > 20 Abnormal 0 - 5 /HPF LAB [id number] Squamous/Epithe lial Cells, Urine 0-2/hpf 0-2/hpf, 3-5/hpf = 1+ LAB [id number] Bacteria PRESENT Abnormal ABSENT Performed By: #### [id number] #### [facility] (DEFAULT) [address] [place] [id number] CNPN Observed: 07/03/2024 12:00 AM Status: COMPLETED Source: [facility] [place] [facility] LINDSAY ACUNA ([id number]) 1945 F Date Time Provider Department 07/03/24 KAMERON CARUSO During your visit today, we recorded the following information about you: Katrina Coombs 07/03/2024 11:31 AM Signed Lindsay is calling Kameron Caruso MD today with concern regarding request for medication Patient is requesting a new prescription for doxycycline hyclate (VIBRAMYCIN) 100 mg capsule for 28 days. Patient states she refused the initial 14 days prescription, so she needs a whole new prescription. Patient will be in [place] for 12 days and need to take medication 2 days prior before leaving. Patient has been identified by name and birthdate. Duration of symptoms: N/A Person calling: self Call patient at: on cell [phone] (home) [phone] (cell) Was an appointment scheduled: No Closing statement: Results or non-symptom based questions: Thank you for calling [facility], your call will be returned within the next business day. Mj Bowling APRN.NAUMKEAG OPERATOR 07/03/2024 12:28 PM Signed The following approved medication requests have been transmitted electronically. Requested Prescriptions Signed Prescriptions Disp Refills doxycycline monohydrate (MONODOX) 100 mg capsule 56 capsule 0 Sig: Take 1 capsule by mouth two times a day for 28 days. Authorizing Provider: MJ GLOVER APRN.NAUMKEAG OPERATOR Allergies As of Date: 07/03/2024 Noted Allergy Reaction BENZOCAINE 07/08/2005 2 - Rash COCAINE 05/28/2008 Comments: Inverted T PERFUMES 07/08/2005 12 - Shortness of Breath Comments: coughes and chokes SULFA (SULFONAMIDE ANTIBIOTICS) 07/08/2005 5 - Intolerance Date Reviewed: 06/26/2024 Reviewed by: Bret Arambula LPN - Fully Assessed Reason for Visit: request for medication [Other] Visit Diagnosis:History of traveler's diarrhea [Z86.19] Order(s):doxycycline monohydrate (MONODOX) 100 mg capsuleTake 1 capsule by mouth two times a day for 28 days.Disp: 56 capsuleRfl: 0 Prescriptions as of 07/03/2024 - doxycycline monohydrate (MONODOX) 100 mg capsule Take 1 capsule by mouth two times a day for 28 days. - oxybutynin ER (DITROPAN XL) 5 mg 24 hr tablet Take 1 tablet by mouth once daily. - apixaban (ELIQUIS) 2.5 mg tab(s) Take 1 tablet by mouth two times a day. - levothyroxine (SYNTHROID) 75 mcg tablet Take 1 tablet by mouth daily before breakfast six days per week. - atenolol (TENORMIN) 50 mg tablet Take 1 tablet by mouth once daily. - atorvastatin (LIPITOR) 80 mg tablet Take 1 tablet by mouth once daily. - metFORMIN ER (GLUCOPHAGE XR) 500 mg 24 hr tablet Take 2 tablets by mouth daily with breakfast. - ramipril (ALTACE) 10 mg capsule Take 2 capsules by mouth once daily. - glimepiride (AMARYL) 2 mg tablet Take 1 tablet by mouth daily with breakfast. - blood sugar diagnostic (ONETOUCH ULTRA TEST) test strip Test Blood Sugar one times daily Dx: E11.29 Insulin: No - lancets (INFRARED IMAGING SYSTEMSTOUCH DELICA PLUS LANCET) 30 gauge Test blood sugars 1 time daily. Dx: Type 2 DM Controlled E11.9. Insulin: no - Chlorhexidine Gluconate (PERIDEX) 0.12 % solution Use 15 mL as instructed twice daily. Rinse around mouth for 30 seconds then expectorate - blood sugar diagnostic (ONETOUCH ULTRA TEST STRIP) test strip Use to test sugars 1 times per day. Dx: E11.29. Insulin: No - Betamethasone Dipropionate 0.05 % lotion Apply 1 application to affected area twice daily. - ONE TOUCH GLUCOSE CONTROL SOLN use as directed. Problem List As Of Date 07/03/2024 Noted Resolved BENIGN HYPERTENSION [I10] PURE HYPERCHOLESTEROLEM [E78.00] 11/26/2013 DIABETES MELLITUS TYPE II-UNCOMPL [E11.9] 11/26/2013 SIMPLE GOITER [E04.0] Hypothyroidism [E03.9] 03/27/2007 Type 2 diabetes mellitus with stage 3b chronic *11/26/2013 CKD (chronic kidney disease) stage 3, GFR 30-59*11/26/2013 Hyperlipidemia [E78.5] 11/26/2013 Psoriasis of scalp [L40.9] 11/26/2013 Diabetes mellitus with renal complications (HCC*05/01/2014 11/03/2020 Hypertensive kidney disease with stage 3 chroni*11/03/2020 11/05/2020 Acute pain of left knee [M25.562] 11/13/2020 Acute left ankle pain [M25.572] 11/13/2020 Chronic pain of left ankle [M25.572, G89.29] 11/13/2020 Prescriptions ordered this encounter Disp Refills Start End DOXYCYCLINE MONOHYDRATE 100 MG CAPSU* 56 c* 0 07/03/2024 07/31/2024 Route: ORAL Sig: Take 1 capsule by mouth two times a day for 28 days. Medications Discontinued During This Encounter Prescriptions - doxycycline monohydrate (MONODOX) 100 mg capsule (Discontinued) Take 1 capsule by mouth two times a day for 7 days. Encounter Status:Closed by MJ GLOVER on 07/03/24 GARRETTN Observed: 07/02/2024 12:00 AM Status: COMPLETED Source: [facility] LINDSAY ACUNA ([id number]) 1945 F Date Time Provider Department 07/02/24 [facility] During your visit today, we recorded the following information about you: Katia Grullon RN 07/02/2024 11:57 AM Signed Patient calls and is requesting Cardiology referral to be faxed to [facility]. Faxed referral as requested. Katia Grullon RN Allergies As of Date: 07/02/2024 Noted Allergy Reaction BENZOCAINE 07/08/2005 2 - Rash COCAINE 05/28/2008 Comments: Inverted T PERFUMES 07/08/2005 12 - Shortness of Breath Comments: coughes and chokes SULFA (SULFONAMIDE ANTIBIOTICS) 07/08/2005 5 - Intolerance Date Reviewed: 06/26/2024 Reviewed by: Bret Arambula LPN - Fully Assessed Reason for Visit: Faxed Referral [Other] Prescriptions as of 07/02/2024 - doxycycline monohydrate (MONODOX) 100 mg capsule Take 1 capsule by mouth two times a day for 7 days. - oxybutynin ER (DITROPAN XL) 5 mg 24 hr tablet Take 1 tablet by mouth once daily. - apixaban (ELIQUIS) 2.5 mg tab(s) Take 1 tablet by mouth two times a day. - levothyroxine (SYNTHROID) 75 mcg tablet Take 1 tablet by mouth daily before breakfast six days per week. - atenolol (TENORMIN) 50 mg tablet Take 1 tablet by mouth once daily. - atorvastatin (LIPITOR) 80 mg tablet Take 1 tablet by mouth once daily. - metFORMIN ER (GLUCOPHAGE XR) 500 mg 24 hr tablet Take 2 tablets by mouth daily with breakfast. - ramipril (ALTACE) 10 mg capsule Take 2 capsules by mouth once daily. - glimepiride (AMARYL) 2 mg tablet Take 1 tablet by mouth daily with breakfast. - blood sugar diagnostic (ONETOUCH ULTRA TEST) test strip Test Blood Sugar one times daily Dx: E11.29 Insulin: No - lancets (ONETOUCH DELICA PLUS LANCET) 30 gauge Test blood sugars 1 time daily. Dx: Type 2 DM Controlled E11.9. Insulin: no - Chlorhexidine Gluconate (PERIDEX) 0.12 % solution Use 15 mL as instructed twice daily. Rinse around mouth for 30 seconds then expectorate - blood sugar diagnostic (ONETOUCH ULTRA TEST STRIP) test strip Use to test sugars 1 times per day. Dx: E11.29. Insulin: No - Betamethasone Dipropionate 0.05 % lotion Apply 1 application to affected area twice daily. - ONE TOUCH GLUCOSE CONTROL SOLN use as directed. Problem List As Of Date 07/02/2024 Noted Resolved BENIGN HYPERTENSION [I10] PURE HYPERCHOLESTEROLEM [E78.00] 11/26/2013 DIABETES MELLITUS TYPE II-UNCOMPL [E11.9] 11/26/2013 SIMPLE GOITER [E04.0] Hypothyroidism [E03.9] 03/27/2007 Type 2 diabetes mellitus with stage 3b chronic *11/26/2013 CKD (chronic kidney disease) stage 3, GFR 30-59*11/26/2013 Hyperlipidemia [E78.5] 11/26/2013 Psoriasis of scalp [L40.9] 11/26/2013 Diabetes mellitus with renal complications (HCC*05/01/2014 11/03/2020 Hypertensive kidney disease with stage 3 chroni*11/03/2020 11/05/2020 Acute pain of left knee [M25.562] 11/13/2020 Acute left ankle pain [M25.572] 11/13/2020 Chronic pain of left ankle [M25.572, G89.29] 11/13/2020 Encounter Status:Closed by KATIA GRULLON on 07/02/24 GARRETTN Observed: 06/28/2024 12:00 AM Status: COMPLETED Source: [facility] Telephone ([facility]) LINDSAY ACUNA ([id number]) 1945 F Date Time Provider Department 06/28/24 KAMERON CARUSO During your visit today, we recorded the following information about you: Goldie Sabillon 06/28/2024 2:42 PM Addendum Lindsay is calling Kameron Caruso MD today to request medication not on current med list Patient will be traveling out of the [place] Doxycyline Patient is asking for 14 pills. They will be traveling in [place] and will need to take it during the trip [facility]acy [facility] Patient has been identified by name and birthdate. Person calling: self Call patient at: on cell [phone] (home) [phone] (cell) Was an appointment scheduled: No Adenike Carey MA 06/28/2024 3:08 PM Signed Please review pt message and advise. TATIANA Simpson Jesse, APRN.NAUMKEAG OPERATOR 07/01/2024 11:23 AM Signed Please let the patient know that I have sent The following approved medication requests have been transmitted electronically. Requested Prescriptions Signed Prescriptions Disp Refills doxycycline monohydrate (MONODOX) 100 mg capsule 14 capsule 0 Sig: Take 1 capsule by mouth two times a day for 7 days. Authorizing Provider: MJ GLOVER APRN.Bret Kwong LPN 07/01/2024 12:40 PM Signed Patient notified of Rx, verbalizes understanding of instructions. Bret Arambula LPN Allergies As of Date: 06/28/2024 Noted Allergy Reaction BENZOCAINE 07/08/2005 2 - Rash COCAINE 05/28/2008 Comments: Inverted T PERFUMES 07/08/2005 12 - Shortness of Breath Comments: coughes and chokes SULFA (SULFONAMIDE ANTIBIOTICS) 07/08/2005 5 - Intolerance Date Reviewed: 06/26/2024 Reviewed by: Bret Arambula LPN - Fully Assessed Reason for Visit: medication not on current med list [Other] Primary Visit Diagnosis:History of traveler's diarrhea [Z86.19] Order(s):doxycycline monohydrate (MONODOX) 100 mg capsuleTake 1 capsule by mouth two times a day for 7 days.Disp: 14 capsuleRfl: 0 Prescriptions as of 07/01/2024 - doxycycline monohydrate (MONODOX) 100 mg capsule Take 1 capsule by mouth two times a day for 7 days. - oxybutynin ER (DITROPAN XL) 5 mg 24 hr tablet Take 1 tablet by mouth once daily. - apixaban (ELIQUIS) 2.5 mg tab(s) Take 1 tablet by mouth two times a day. - levothyroxine (SYNTHROID) 75 mcg tablet Take 1 tablet by mouth daily before breakfast six days per week. - atenolol (TENORMIN) 50 mg tablet Take 1 tablet by mouth once daily. - atorvastatin (LIPITOR) 80 mg tablet Take 1 tablet by mouth once daily. - metFORMIN ER (GLUCOPHAGE XR) 500 mg 24 hr tablet Take 2 tablets by mouth daily with breakfast. - ramipril (ALTACE) 10 mg capsule Take 2 capsules by mouth once daily. - glimepiride (AMARYL) 2 mg tablet Take 1 tablet by mouth daily with breakfast. - blood sugar diagnostic (Mind on GamesUCH ULTRA TEST) test strip Test Blood Sugar one times daily Dx: E11.29 Insulin: No - lancets (ONETOUCH DELICA PLUS LANCET) 30 gauge Test blood sugars 1 time daily. Dx: Type 2 DM Controlled E11.9. Insulin: no - Chlorhexidine Gluconate (PERIDEX) 0.12 % solution Use 15 mL as instructed twice daily. Rinse around mouth for 30 seconds then expectorate - blood sugar diagnostic (ONETOUCH ULTRA TEST STRIP) test strip Use to test sugars 1 times per day. Dx: E11.29. Insulin: No - Betamethasone Dipropionate 0.05 % lotion Apply 1 application to affected area twice daily. - ONE TOUCH GLUCOSE CONTROL SOLN use as directed. Problem List As Of Date 06/28/2024 Noted Resolved BENIGN HYPERTENSION [I10] PURE HYPERCHOLESTEROLEM [E78.00] 11/26/2013 DIABETES MELLITUS TYPE II-UNCOMPL [E11.9] 11/26/2013 SIMPLE GOITER [E04.0] Hypothyroidism [E03.9] 03/27/2007 Type 2 diabetes mellitus with stage 3b chronic *11/26/2013 CKD (chronic kidney disease) stage 3, GFR 30-59*11/26/2013 Hyperlipidemia [E78.5] 11/26/2013 Psoriasis of scalp [L40.9] 11/26/2013 Diabetes mellitus with renal complications (HCC*05/01/2014 11/03/2020 Hypertensive kidney disease with stage 3 chroni*11/03/2020 11/05/2020 Acute pain of left knee [M25.562] 11/13/2020 Acute left ankle pain [M25.572] 11/13/2020 Chronic pain of left ankle [M25.572, G89.29] 11/13/2020 Prescriptions ordered this encounter Disp Refills Start End DOXYCYCLINE MONOHYDRATE 100 MG CAPSU* 14 c* 0 07/01/2024 07/08/2024 Route: ORAL Sig: Take 1 capsule by mouth two times a day for 7 days. Encounter Status:Closed by BRET ARAMBULA on 07/01/24 PROGRESS Observed: 06/26/2024 9:40 AM Status: COMPLETED [facility] [id number] Author: EMMA SOTOMAYOR APRN.NAUMKEAG OPERATOR Service: ? Author Type: Nurse Practitioner Type: Progress Notes Filed: 06/26/2024 12:37 Note Text: This is a 78 year old female who presents today with: Patient presents with: Follow Up: 1 month follow up for A-fib HISTORY OF PRESENT ILLNESS: Lindsay Acuna is a 78 year old female. Patient presents with: Follow Up: 1 month follow up for A-fib Here in the office to follow up on new onset A-fib. Noted on EKG last month at in office visit with PCP. Taking Eliquis 2.5 mg 1 pill BID. Not following with Cardiology. Had echo completed, see below. Still taking atenolol 50 mg daily, Lipitor 80 mg daily. Ramipril 10 mg, 2 capsules daily. No chest pain. Will be traveling to [place], will need medication for Malaria, axis. Low TSH, Synthroid was decreased to 75 mcg 6 days/week last month. Due for repeat labs next month. Echo: CONCLUSIONS: - Exam indication: Atrial fibrillation - The left ventricle is normal in size. Left ventricular systolic function is normal. EF = 62 ? 5% (2D biplane) Left ventricular diastolic function was not evaluated due to AF. - The right ventricle is normal in size. Right ventricular systolic function is normal. - The left atrial cavity is moderately dilated. - There is mild mitral insufficiency present. - There is mild tricuspid insufficiency present. - There is mild aortic insufficiency present. - Exam was compared with the prior CC echocardiographic exam performed on 10/24/2003 (Stress). No significant change in left ventricular systolic function. Limited views obtained on old stress echocardiogram PAST MEDICAL HISTORY: PAST MEDICAL HISTORY Diagnosis Date Coronary artery disease Diverticulosis of colon (without mention of hemorrhage) Essential hypertension, benign Goiter, specified as simple Internal hemorrhoids without mention of complication Kidney disease Pure hypercholesterolemia Snoring Type II or unspecified type diabetes mellitus without mention of complication, not stated as uncontrolled PAST SURGICAL HISTORY Procedure Laterality Date DELIVERY ONLY , low cervical x 2 COLONOSCOPY FLX DX W/COLLJ SPEC WHEN PFRMD COLONOSCOPY FLX DX W/COLLJ SPEC WHEN PFRMD 09/28/15 Colonoscopy COLONOSCOPY FLX DX W/COLLJ SPEC WHEN PFRMD 11/07/2018 Colonoscopy EXTRACTION, ERUPTED TOOTH OR EXPOSED ROOT (ELEVATION AND/OR FORCEPS REMOVAL) PAST SURGICAL HISTORY OF cyst removed lt breast PAST SURGICAL HISTORY OF ORIF L arm PAST SURGICAL HISTORY OF 2011 cataract both eyes SIGMOIDOSCOPY N/A 10/15/2019 ALLERGIES Benzocaine, Cocaine, Perfumes, and Sulfa (Sulfonamide Antibiotics) MEDICATIONS Current Outpatient Medications Medication Sig oxybutynin ER (DITROPAN XL) 5 mg 24 hr tablet Take 1 tablet by mouth once daily. apixaban (ELIQUIS) 2.5 mg tab(s) Take 1 tablet by mouth two times a day. levothyroxine (SYNTHROID) 75 mcg tablet Take 1 tablet by mouth daily before breakfast six days per week. atenolol (TENORMIN) 50 mg tablet Take 1 tablet by mouth once daily. atorvastatin (LIPITOR) 80 mg tablet Take 1 tablet by mouth once daily. metFORMIN ER (GLUCOPHAGE XR) 500 mg 24 hr tablet Take 2 tablets by mouth daily with breakfast. ramipril (ALTACE) 10 mg capsule Take 2 capsules by mouth once daily. glimepiride (AMARYL) 2 mg tablet Take 1 tablet by mouth daily with breakfast. blood sugar diagnostic (ONETOUCH ULTRA TEST) test strip Test Blood Sugar one times daily Dx: E11.29 Insulin: No lancets (INFRARED IMAGING SYSTEMSTOUCH DELICA PLUS LANCET) 30 gauge Test blood sugars 1 time daily. Dx: Type 2 DM Controlled E11.9. Insulin: no Chlorhexidine Gluconate (PERIDEX) 0.12 % solution Use 15 mL as instructed twice daily. Rinse around mouth for 30 seconds then expectorate blood sugar diagnostic (ONETOUCH ULTRA TEST STRIP) test strip Use to test sugars 1 times per day. Dx: E11.29. Insulin: No Betamethasone Dipropionate 0.05 % lotion Apply 1 application to affected area twice daily. ONE TOUCH GLUCOSE CONTROL SOLN use as directed. No current facility-administered medications for this visit. FAMILY HISTORY Problem Relation Age of Onset Diabetes Mother Hypertension Mother Psychiatry Mother Cancer Other grandmother Thyroid Sister Social History Tobacco Use Smoking status: Never Smokeless tobacco: Never Vaping Use Vaping status: Never Used Substance Use Topics Alcohol use: No Drug use: No REVIEW OF SYSTEMS GENERAL: No weight loss, malaise or fevers/chills HEENT: Negative for frequent or significant headaches, No changes in hearing or vision. NECK: Negative for lumps, goiter, pain and significant neck swelling RESPIRATORY: Negative for cough, hemoptysis, wheezing, dyspnea or shortness of breath CARDIOVASCULAR: Negative for chest pain, leg swelling, orthopnea, or palpitations GI: No nausea, vomiting, or diarrhea/constipation. No hematochezia/melena. No heartburn or reflux symptoms. : No history of dysuria, frequency or incontinence MUSCULOSKELETAL: Negative for joint pain or swelling. SKIN: Negative for lesions, rash, and itching ENDOCRINE: Negative for cold or heat intolerance, polyuria, polydipsia and goiter NEURO: No history of headaches, syncope, paralysis, seizures or tremors MOOD: Negative for depression, anxiety, or suicidal ideation. EXAM: BP 144/88 Pulse 93 Resp 16 Wt 78.9 kg (174 lb) SpO2 98% BMI 27.25 kg/m? PHYSICAL EXAM: General Appearance: Well appearing, alert, in no acute distress, well-hydrated, well nourished. Skin: Skin color, texture, turgor normal, no suspicious rashes or lesions. Head: Normocephalic, no masses, lesions, tenderness or abnormalities. Eyes: Anicteric sclera. Extraocular movements are intact. Lungs: Lungs clear to auscultation. No wheezing, rhonchi, rales. Heart: Positive findings: irregular rhythm. Consistent with afib. Extremities: No deformities, edema, skin discoloration, clubbing or cyanosis. Good capillary refill. Peripheral Pulses: Normal, Capillary refill <2secs, strong peripheral pulses, Pulses palpable. Neurologic: Gait normal. Sensation grossly intact. ASSESSMENT/PLAN: 1. Atrial fibrillation, unspecified type (HCC) - ICD9: 427.31, ICD10: I48.91 (primary diagnosis) - Continue to take current medication - Due to new onset afib recommend consult with cardiology. - Red flag symptoms given to patient and she verbalizes when to seek care. - CONSULT TO CARDIOLOGY 2. Hypothyroidism, unspecified type - ICD9: 244.9, ICD10: E03.9 - Instructed patient on importance of taking on an empty stomach either first thing in the morning or at bedtime. - Get repeat labs next month. - THYROID STIMULATING HORMONE - T4 FREE/FREE THYROXINE 3. Need for malaria prophylaxis - ICD9: V07.8, ICD10: Z29.89 - Denied wanting to RX for Malarone, will check with daughter and contact the office with preferred prophylaxis. Discussed doxycycline or mefloquine. Follow-up in 6 months or sooner pending test results. Discussed treatment plan and patient voices understanding. Patient's questions answered appropriately. Medications and potential side effects were discussed and patient voices understanding. Emma Sotomayor APRN.GARRETT This note was partially generated using [employer] voice recognition system. Note was reviewed for accuracy. There may be minor misspellings or grammar miscues with Dragon voice recognition. CNOV Observed: 06/26/2024 9:40 AM Status: COMPLETED Source: [facility] LINDSAY ACUNA ([id number]) 1945 F Date Time Provider Department 06/26/24 9:40 AM EMMA SOTOMAYOR [facility] During your visit today, we recorded the following information about you: Pulse Respiration Blood pressure Weight 93/minute 16/minute 144/88 78.9 kg Emma Sotomayor APRN.CNP 06/26/2024 12:37 PM Signed This is a 78 year old female who presents today with: Patient presents with: Follow Up: 1 month follow up for A-fib HISTORY OF PRESENT ILLNESS: Lindsay Acuna is a 78 year old female. Patient presents with: Follow Up: 1 month follow up for A-fib Here in the office to follow up on new onset A-fib. Noted on EKG last month at in office visit with PCP. Taking Eliquis 2.5 mg 1 pill BID. Not following with Cardiology. Had echo completed, see below. Still taking atenolol 50 mg daily, Lipitor 80 mg daily. Ramipril 10 mg, 2 capsules daily. No chest pain. Will be traveling to [place], will need medication for Malaria, axis. Low TSH, Synthroid was decreased to 75 mcg 6 days/week last month. Due for repeat labs next month. Echo: CONCLUSIONS: - Exam indication: Atrial fibrillation - The left ventricle is normal in size. Left ventricular systolic function is normal. EF = 62 ? 5% (2D biplane) Left ventricular diastolic function was not evaluated due to AF. - The right ventricle is normal in size. Right ventricular systolic function is normal. - The left atrial cavity is moderately dilated. - There is mild mitral insufficiency present. - There is mild tricuspid insufficiency present. - There is mild aortic insufficiency present. - Exam was compared with the prior CC echocardiographic exam performed on 10/24/2003 (Stress). No significant change in left ventricular systolic function. Limited views obtained on old stress echocardiogram PAST MEDICAL HISTORY: PAST MEDICAL HISTORY Diagnosis Date Coronary artery disease Diverticulosis of colon (without mention of hemorrhage) Essential hypertension, benign Goiter, specified as simple Internal hemorrhoids without mention of complication Kidney disease Pure hypercholesterolemia Snoring Type II or unspecified type diabetes mellitus without mention of complication, not stated as uncontrolled PAST SURGICAL HISTORY Procedure Laterality Date DELIVERY ONLY , low cervical x 2 COLONOSCOPY FLX DX W/COLLJ SPEC WHEN PFRMD COLONOSCOPY FLX DX W/COLLJ SPEC WHEN PFRMD 09/28/15 Colonoscopy COLONOSCOPY FLX DX W/COLLJ SPEC WHEN PFRMD 11/07/2018 Colonoscopy EXTRACTION, ERUPTED TOOTH OR EXPOSED ROOT (ELEVATION AND/OR FORCEPS REMOVAL) PAST SURGICAL HISTORY OF cyst removed lt breast PAST SURGICAL HISTORY OF ORIF L arm PAST SURGICAL HISTORY OF 2012 cataract both eyes SIGMOIDOSCOPY N/A 10/15/2019 ALLERGIES Benzocaine, Cocaine, Perfumes, and Sulfa (Sulfonamide Antibiotics) MEDICATIONS Current Outpatient Medications Medication Sig oxybutynin ER (DITROPAN XL) 5 mg 24 hr tablet Take 1 tablet by mouth once daily. apixaban (ELIQUIS) 2.5 mg tab(s) Take 1 tablet by mouth two times a day. levothyroxine (SYNTHROID) 75 mcg tablet Take 1 tablet by mouth daily before breakfast six days per week. atenolol (TENORMIN) 50 mg tablet Take 1 tablet by mouth once daily. atorvastatin (LIPITOR) 80 mg tablet Take 1 tablet by mouth once daily. metFORMIN ER (GLUCOPHAGE XR) 500 mg 24 hr tablet Take 2 tablets by mouth daily with breakfast. ramipril (ALTACE) 10 mg capsule Take 2 capsules by mouth once daily. glimepiride (AMARYL) 2 mg tablet Take 1 tablet by mouth daily with breakfast. blood sugar diagnostic (Mind on GamesUCH ULTRA TEST) test strip Test Blood Sugar one times daily Dx: E11.29 Insulin: No lancets (ONETOUCH DELICA PLUS LANCET) 30 gauge Test blood sugars 1 time daily. Dx: Type 2 DM Controlled E11.9. Insulin: no Chlorhexidine Gluconate (PERIDEX) 0.12 % solution Use 15 mL as instructed twice daily. Rinse around mouth for 30 seconds then expectorate blood sugar diagnostic (ONETOUCH ULTRA TEST STRIP) test strip Use to test sugars 1 times per day. Dx: E11.29. Insulin: No Betamethasone Dipropionate 0.05 % lotion Apply 1 application to affected area twice daily. ONE TOUCH GLUCOSE CONTROL SOLN use as directed. No current facility-administered medications for this visit. FAMILY HISTORY Problem Relation Age of Onset Diabetes Mother Hypertension Mother Psychiatry Mother Cancer Other grandmother Thyroid Sister Social History Tobacco Use Smoking status: Never Smokeless tobacco: Never Vaping Use Vaping status: Never Used Substance Use Topics Alcohol use: No Drug use: No REVIEW OF SYSTEMS GENERAL: No weight loss, malaise or fevers/chills HEENT: Negative for frequent or significant headaches, No changes in hearing or vision. NECK: Negative for lumps, goiter, pain and significant neck swelling RESPIRATORY: Negative for cough, hemoptysis, wheezing, dyspnea or shortness of breath CARDIOVASCULAR: Negative for chest pain, leg swelling, orthopnea, or palpitations GI: No nausea, vomiting, or diarrhea/constipation. No hematochezia/melena. No heartburn or reflux symptoms. : No history of dysuria, frequency or incontinence MUSCULOSKELETAL: Negative for joint pain or swelling. SKIN: Negative for lesions, rash, and itching ENDOCRINE: Negative for cold or heat intolerance, polyuria, polydipsia and goiter NEURO: No history of headaches, syncope, paralysis, seizures or tremors MOOD: Negative for depression, anxiety, or suicidal ideation. EXAM: BP 144/88 Pulse 93 Resp 16 Wt 78.9 kg (174 lb) SpO2 98% BMI 27.25 kg/m? PHYSICAL EXAM: General Appearance: Well appearing, alert, in no acute distress, well-hydrated, well nourished. Skin: Skin color, texture, turgor normal, no suspicious rashes or lesions. Head: Normocephalic, no masses, lesions, tenderness or abnormalities. Eyes: Anicteric sclera. Extraocular movements are intact. Lungs: Lungs clear to auscultation. No wheezing, rhonchi, rales. Heart: Positive findings: irregular rhythm. Consistent with afib. Extremities: No deformities, edema, skin discoloration, clubbing or cyanosis. Good capillary refill. Peripheral Pulses: Normal, Capillary refill <2secs, strong peripheral pulses, Pulses palpable. Neurologic: Gait normal. Sensation grossly intact. ASSESSMENT/PLAN: 1. Atrial fibrillation, unspecified type (HCC) - ICD9: 427.31, ICD10: I48.91 (primary diagnosis) - Continue to take current medication - Due to new onset afib recommend consult with cardiology. - Red flag symptoms given to patient and she verbalizes when to seek care. - CONSULT TO CARDIOLOGY 2. Hypothyroidism, unspecified type - ICD9: 244.9, ICD10: E03.9 - Instructed patient on importance of taking on an empty stomach either first thing in the morning or at bedtime. - Get repeat labs next month. - THYROID STIMULATING HORMONE - T4 FREE/FREE THYROXINE 3. Need for malaria prophylaxis - ICD9: V07.8, ICD10: Z29.89 - Denied wanting to RX for Malarone, will check with daughter and contact the office with preferred prophylaxis. Discussed doxycycline or mefloquine. Follow-up in 6 months or sooner pending test results. Discussed treatment plan and patient voices understanding. Patient's questions answered appropriately. Medications and potential side effects were discussed and patient voices understanding. Emma Sotomayor APRN.GARRETT This note was partially generated using [employer] voice recognition system. Note was reviewed for accuracy. There may be minor misspellings or grammar miscues with [employer] voice recognition. Emma Sotomayor APRN.CNP 06/26/2024 10:08 AM Addendum Recommend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 LAB 2085-9(LOINC) HDLc SerPl-mCnc 44 >39 mg/dL Result Comment: 40-59 mg/dL, Acceptable >59 mg/dL, High: Negative risk factor for coronary heart disease <40 mg/dL, Low: Positive risk factor for coronary heart disease LAB 22092-1(LOINC) NonHDLc SerPl-mCnc 149 High <130 mg/dL Result Comment: <130 mg/dL, Optimal 130-159 mg/dL, Near optimal/above optimal 160-189 mg/dL, Borderline high 190-219 mg/dL, High >219 mg/dL, Very high Secondary prevention optimal non HDL Cholesterol levels are recommended to be <100 mg/dL LAB FT FASTING TIME 12 hrs [facility] 41690-[facility] VLDLc SerPl Calc-mCnc 26 <30 mg/dL LAB 9830-1(LOINC) Cholest/HDLc SerPl 4.39 <5.10 LAB 2089-1([facility] LDLc SerPl-mCnc 123 High <100 mg/dL Result Comment: <100 mg/dL, Optimal 100-129 mg/dL, Near optimal/above optimal 130-159 mg/dL, Borderline high 160-189 mg/dL, High >189 mg/dL, Very high Secondary prevention optimal LDL Cholesterol levels are recommended to be < 70 mg/dL LAB 18396-9(LOINC) LDLc/HDLc SerPl 2.80 High <2.54 Result Comment: Reference: 1. National Cholesterol Education Program ATP III Guideline At-A-Glance Quick Desk Reference: National Heart, Lung, and Blood [place]. National Institutes of Health. 2001: NIH Publication No. 01-3305. 2. An International Atherosclerosis Society position paper: global recommendations for the management of dyslipidemia: executive summary, Atherosclerosis. 2014: 232(2):410-413. Performed By: #### 05799-5, 6-3, 63146-3 #### [facility] CLIA [id number] [address] [place] [address] [place] [facility] TSH SERPL-ACNC Collected: 5 9:33 AM Status: F Source: [facility] Order Comment: Specimen Type : BLOOD SPECIMEN Ordering Facility: [facility] Address: [address] [place] [address] TYPE CODE TESTS RESULT OUT OF RANGE REFERENCE UNITS LAB 3016-3([facility]) TSH SerPl-aCnc 0.183 Low 0.270-4.200 mIU/L Performed By: #### 79537-7, 3016-3, 42598-5 #### [facility] CLIA [id number] [address] [place] [address] [place] DEPRECATED HGB A1C BLD Collected: 05/23 9:33 AM Status: F Source: [facility] Order Comment: Specimen Type : BLOOD SPECIMEN Ordering Facility: [facility] Address: [address] [place] [address] TYPE CODE TESTS RESULT OUT OF RANGE REFERENCE UNITS LAB 4548-4(LOINC) HbA1c MFr Bld 7.0 High 4.3-5.6 % Result Comment: French Karolyn betes Association guidelines indicate that patients with HgbA1c in the range 5.7-6.4% are at increased risk for development of diabetes, and intervention by lifestyle modification may be beneficial. HgbA1c greater or equal to 6.5% is considered diagnostic of diabetes. LAB 35871-8(LOINC) Est. average glucose Bld gHb Est-mCnc 154 mg/dL Result Comment: eAG: (Estima kera average glucose) is a calculated value from HgbA1c and is life assurance representative of the average blood glucose level in the last 2-3 month period. Performed By: #### 45275-5 # ### [facility] CLIA [id number] [address] [place] [address] [place] ALLERGIES DATE TYPE / CODE NAME / CODE REACTION SEVERITY SOURCE 05/28/2008 DRUG INGREDI/992917 003(SNOMED CT) COCAINE [facility] 07/08/2005 DRUG INGREDI/043209 003(SNOMED CT) BENZOCAINE RASH [facility] 07/08/2005 Environ/170363 006(SNOMED CT) PERFUMES SHORTNESS OF [facility] 07/08/2005 Drug Class/24533932 3(SNOMED CT) SULFA (SULFONAMIDE ANTIBIOTICS) INTOLERANCE [facility] ENCOUNTERS ADMIT/DISCHARGE ACCOUNT NUMBER ADMITTING ENCOUNTER CLASS LOCATION SOURCE 08/15/2024/ 025 [id number] SILVINO HA DO Inpatient Encounter [facility]QBV[facility]Ywkk: 0115Bed: A [facility] 08/09/2024 [id number] LUCINDA PEACOCK [facility] 08/06/2024 [id number] CATA ALFRED Inpatient Encounter Building:[address] 08/02/2024/ 025 [id number] ROBERTA SINGH [facility] 08/02/2024/ 025 [id number] NEGRO RAMOS [facility] 06/26/2024/ 025 [id number] [facility]20[facility] [id number] [facility] 06/11/2024/ 025 [id number] [facility] 0[facility] [id number] [facility] 05/23/2024/ 025 [id number] [facility] PAYERS ENCOUNTER GUARANTOR PAYER SUBSCRIBER SOURCE 08/15/2024October HAMMONDDOB: [id number] [place], [place] [address]Sfn: (HP) Primary Insurance:SUMMACARE INSCOPolicy Number: [id number] Date:8397-40-97Ixgf Name:[address], [place] [address]VE: October HAMMONDDOB: [id number] [place], [place] [address]Xkr: (HP) (WP) [facility] 08/15/2024 Secondary Insurance:MEDICARE PART A INSCOPolicy Number: [id number] Date:2925-66-86Zugj Name:MMail Code AG OJSEPH [place] [id number] [address]HX: October HAMMONDDOB: [id number] [place], [place] [address]Qdm: (HP) (WP) [facility] 08/09/2024October HAMMONDDOB: [place], [place] [address]Ira: ~(33 [phone] (HP) Primary Insurance:SUM[place] CARE MEDICAREPolicy Number: [id number] Date:0060-90-49Chre Name:[place] [address]CT: OCTOBER HAMMONDDOB: [id number] [place], [place] [address]Jae: (HP) [facility] 08/02/2024October L HAMMONDDOB: [place], [place] [address]Ycv: ~(33 [phone] (HP) Primary Insurance:SUMMACARE MEDICAREPolicy Number: [id number] Date:2024-08-02October HAMMONDDOB: [id number] ALTAGRACIAPATIYURIY [place], [place] [address]Asm: (HP) [facility] 08/02/2024October HAMMONDDOB: [place], [place] [address]Pip: ~([phone] (HP) Primary Insurance:SUMMA CARE MEDICAREPolicy Number: [id number] Date:1477-54-04Vnkr Name:[place] [address]GE: OCTOBER HAMMONDDOB: [id number] [place], [place] [address]Xdv: (HP) [facility] 06/26/2024 [place]uranc [place] MED[place]: [id number] Date:7779-74-43Offy Name:Johny ACUNAB: [id number] [place] [address] [facility] 06/25/2024 [place] Insuranc [place] Number: [id number] Date:8814-46-87Ookt Name:Johny ACUNAB: [id number] [place] [address] [facility] 06/11/2024 [place] Insuranc [place] MED[place] Number: [id number] Date:9104-41-16Mywi Name:Johny Martin NARCISACRISTINAB: [id number] [facility] [place] [address] [facility] 05/31/2024 [place] Insuranc [place] Number: [id number] Date:7842-93-27Fhwa Name:Johny Martin NARCISACRISTINAB: [id number] [facility] [place] [address] [facility] 05/23/2024 Primary Insuranc [place] Number: [id number] Date:0507-37-34Djrb Name:Johny Martin NARCISACRISTINAB: [id number] [facility] [place] [address] [facility]
[2025-02-11 08:46] LABS: Hematocrit 37.4 % (37-47); Hemoglobin 12.4 g/dL (12.0-15.0); Immature Granulocytes Count 0.030 X10^3/uL (0.0-0.0); Mean Corp Hgb Conc 33.2 g/dL (32-36); Mean Corpuscular Volume 90.3 fL (81-99); Mean Platelet Vol. 12.1 fl (6.2-12.0); NRBC Flagged by Analyzer 0 % (0-5); Platelet Count 260 K/mm3 (150-450); RBC Distribution Width CV 14.4 % (11.6-14.6); RBC Distribution Width SD 47.5 fl (35.1-43.9); Red Blood Count 4.14 M/mm3 (4.2-5.4); White Blood Count 7.5 K/mm3 (4.4-11.0)
[2025-02-11 09:11] LABS: Anion Gap 14 (5-15); BUN 19 mg/dL (4-19); BUN/Creat Ratio 23.1 RATIO (10-20); Calcium,Total 9.1 mg/dL (7.6-11.0); Carbon Dioxide 21.6 mmol/L (21.0-32.0); Chloride 103 mmol/L (98-108); Glucose 110 mg/dL (70-99); Potassium 3.6 mmol/L (3.3-5.1)
== END ==
LOC: OLS.WHLTCC 06:03
PROVIDERS: PCP Family Medicine; Referring Provider Internal Medicine; Visit Provider Internal Medicine
DX: I10 Essential (primary) hypertension (principal); I69.354 Hemiplegia and hemiparesis following cerebral infarction affecting left non-dominant side; I69.391 Dysphagia following cerebral infarction; E11.9 Type 2 diabetes mellitus without complications
CPT/HCPCS: 36415; 80048; 85025

== ENCOUNTER → 2025-02-18 07:00 | Outpatient (REF) | payer MEDICARE, SELFPAY ==
[2025-02-18 10:00] LABS: Hematocrit 39.0 % (37-47); Hemoglobin 12.5 g/dL (12.0-15.0); Immature Granulocytes Count 0.020 X10^3/uL (0.0-0.0); Mean Corp Hgb Conc 32.1 g/dL (32-36); Mean Corpuscular Volume 92.2 fL (81-99); Mean Platelet Vol. 12.6 fl (6.2-12.0); NRBC Flagged by Analyzer 0 % (0-5); Platelet Count 263 K/mm3 (150-450); RBC Distribution Width CV 14.3 % (11.6-14.6); RBC Distribution Width SD 48.0 fl (35.1-43.9); Red Blood Count 4.23 M/mm3 (4.2-5.4); White Blood Count 7.9 K/mm3 (4.4-11.0)
[2025-02-18 10:23] LABS: Anion Gap 13 (5-15); BUN 19 mg/dL (4-19); BUN/Creat Ratio 23.7 RATIO (10-20); Calcium,Total 9.2 mg/dL (7.6-11.0); Carbon Dioxide 23.2 mmol/L (21.0-32.0); Chloride 102 mmol/L (98-108); Glucose 165 mg/dL (70-99); Potassium 4.1 mmol/L (3.3-5.1)
== END ==
LOC: OLS.WHLTCC 07:00
PROVIDERS: PCP Family Medicine; Visit Provider Internal Medicine
DX: I10 Essential (primary) hypertension (principal); I69.354 Hemiplegia and hemiparesis following cerebral infarction affecting left non-dominant side; I69.391 Dysphagia following cerebral infarction; E11.9 Type 2 diabetes mellitus without complications
CPT/HCPCS: 36415; 80048; 85025

== ENCOUNTER → 2025-02-25 04:07 | Outpatient (REF) | payer MEDICARE, SELFPAY ==
[2025-02-25 09:17] LABS: Hematocrit 39.0 % (37-47); Hemoglobin 12.3 g/dL (12.0-15.0); Immature Granulocytes Count 0.040 X10^3/uL (0.0-0.0); Mean Corp Hgb Conc 31.5 g/dL (32-36); Mean Corpuscular Volume 92.4 fL (81-99); Mean Platelet Vol. 12.4 fl (6.2-12.0); NRBC Flagged by Analyzer 0 % (0-5); Platelet Count 257 K/mm3 (150-450); RBC Distribution Width CV 14.3 % (11.6-14.6); RBC Distribution Width SD 48.5 fl (35.1-43.9); Red Blood Count 4.22 M/mm3 (4.2-5.4); White Blood Count 9.0 K/mm3 (4.4-11.0)
[2025-02-25 09:33] LABS: Anion Gap 12 (5-15); BUN 16 mg/dL (4-19); BUN/Creat Ratio 20.5 RATIO (10-20); Calcium,Total 9.2 mg/dL (7.6-11.0); Carbon Dioxide 25.9 mmol/L (21.0-32.0); Chloride 103 mmol/L (98-108); Glucose 121 mg/dL (70-99); Potassium 3.5 mmol/L (3.3-5.1)
== END ==
LOC: OLS.WHLTCC 04:07
PROVIDERS: PCP Family Medicine; Referring Provider Internal Medicine; Visit Provider Internal Medicine
DX: I10 Essential (primary) hypertension (principal); I69.354 Hemiplegia and hemiparesis following cerebral infarction affecting left non-dominant side; I69.391 Dysphagia following cerebral infarction; E11.9 Type 2 diabetes mellitus without complications; E03.9 Hypothyroidism, unspecified
CPT/HCPCS: 36415; 80048; 84443; 85025

== ENCOUNTER → 2025-03-04 05:00 | Outpatient (REF) | payer MEDICARE, SELFPAY ==
--- OUTSIDE RECORDS SUMMARY | 2025-03-04 03:49 | XMS RPT_ITS | CCD ---
Author Organization [facility] Care Team Providers Care Twisting Frame Operator Name Role Phone KETTY DOWNS Attending [...] Kameron Caruso MD Primary Care Provider Светлана SIX HORSE HITCH DRIVER.Emma TUCKER Unavailable Saurav SIX HORSE HITCH DRIVER.Mj TUCKER Unavailable JUVENTINO ROGERS Attending Unavailable JUVENTINO ROGERS Admitting Unavailable CATA ALFRED Attending Unavailable CATA ALFRED Admitting Unavailable Dr. Kameron Caruso MD Primary Care Provider [phone] Dr. Pieter Morgan MD Emergency Provider Kameron Caruso MD Primary Care Provider Светлана SIX HORSE HITCH DRIVER.Emma TUCKER Unavailable Unavail able KAMERON CARUSO Referring Unavailable KAMERON CARUSO Primary Care Unavailable KAMERON CARUSO Attending Unavailable KAMERON CARUSO Primary Care Unavailable EMMA SOTOMAYOR Attending Unavailable ZULY, KAMERON Beebe Primary Care Unavailable ELDERBROCK, KAMERON Beebe Primary Care Unavailable ELDERBROCK, KAMERON Beebe Primary Care Unavailable ELDERBROCK, KAMERON Beebe Referring Unavailable ELDERBROCK, KAMERON D Primary Care Unavailable ELDERBROCK, KAMERON D Attending Unavailable ELDERBROCK, KAMERON D Primary Care Unavailable ELDERBROCK, KAMERON D Referring Unavailable ELDERBROCK, KAMERON Beebe Primary Care Unavailable ELDERLILIANCK, KAMERON Beebe Attending Unavailable ZULY, KAMERON Beebe Primary Care Unavailable DR KAMERON CARUSO MD Primary Care Physician Dr. Pieter Morgan MD Attending Provider Safia Ruelas MD Attending Provider UnavailDr. Kameron Marquez MD Referring Provider Makayla LAWSON, Dr. Barker Attending Provider CHRISTOS VOSS Attending Unavailable CONSULT, GASTROENTEROLOGY Consulting PIETER Wolf Referring Unavailable PREMA RAMOS Admitting Unavailable ZULY, KAMERON Beebe Primary Care Unavailable BITTAR, RICHARD Referring Unavailable MADONNA, LUCINDA S Attending Unavailable MADONNA, LUCINDA S Admitting Unavailable Dr. Safia Ruelas MD Attending Provider Claudio BUFFET MANAGER-CBret Attending Provider Safia Ruelas MD Referring Provider UnavailDr. Kameron Marquez MD Primary Care Provider [phone] Safia Ruelas MD Attending Provider UnavailDr. Safia Ulloa MD Attending Provider Claudio BUFFET MANAGER-C, Bret Attending Provider Safia Ruelas MD Referring Provider UnavailDr. Kameron Marquez MD Referring Provider Dr. Mj Benavides MD Attending Provider Dr. Kameron Caruso MD Primary Care Physician Safia Ruelas MD Attending Physician Unavail able Claudio BUFFET MANAGER-CBret Attending Physician Oleghe MD, Dr. Efewongbe Attending Physician Jessenia LAWSON, Efsherry Referring Provider Alexandra CARUSO MD, DR MELO Primary Care Unavailab shital HA DO, SILVINO Admitting Unavailable DAE DO, SILVINO Attending Unavailable BRYON LAWSON, DR REECE Consulting Unavailab shital BRENNEN DO, NANDO Consulting Unavailable HEATON SIX HORSE HITCH DRIVER-CHILD CARE SPECIALIST, AMI Hwang Consulting Unavaila ari GIBSON PhD, MATTHEW Zamudio Consulting Unavailable Oleghe OLS, Efewongbe Attending Unavailabl e Elderlinda, Kameron Primary Care Unavailable Oleghe OLS, Efewongbe Referring Unavailabl e Oleghe OLS, Efewongbe Attending Unavailabl e Elderlinda, Kameron Primary Care Unavailable Zuly, Kameron Primary Care Unavailable Oleghe OLS, Efewongbe Referring Unavailabl e Oleghe OLS, Efewongbe Attending Unavailabl e Elderlinda, Kameron Primary Care Unavailable Oleghe OLS, Efewongbe Referring Unavailabl e Oleghe OLS, Efewongbe Attending Unavailabl e Oleghe OLS, Efewongbe Attending Unavailke e Zuly, Kameron Primary Care Unavailable Oleghe OLS, Efewongbe Attending UnavailKameron Felix Primary Care Unavailable Oleghe OLS, Efewongbe Attending Unavailke e Kameron Caruso Primary Care Unavailable Oleghe OLS, Efewongbe Attending UnavailKameron Felix Primary Care Unavailable Oleghe OLS, Efewongbe Attending Unavailke e Kameron Caruso Primary Care Unavailable Cheoghe OLS, Efewongbe Attending UnavailKameron Felix Primary Care Unavailable Oleghe OLS, Efewongbe Referring Unavailabl e Oleghe OLS, Efewongbe Attending Unavailabl e ElderKameron mckeon Primary Care Unavailable Kameron Caruso Primary Care Unavailable Oleghe OLS, Efewongbe Attending Unavailabl e ElderKameron mckeon Primary Care Unavailable Oleghe OLS, Efewongbe Attending Unavailabl e ElderKameron mckeon Primary Care Unavailable Pieter Morgan Attending Unavailable Oleghe OLS, Efewongbe Referring Unavailabl e Oleghe OLS, Efewongbe Attending Unavailabl e Elderlinda, Kameron Primary Care Unavailable Oleghe OLS, Efewongbe Attending Unavailabl e Elderlinda, Kameron Primary Care Unavailable Oleghe OLS, [...] e Elderbrock, Kameron Primary Care Unavailable [place]ton BUFFET MANAGER, Bret Attending Unavailable Elderbrock, Kameron Primary Care Unavailable Elderbrock, Kameron Primary Care Unavailable Oleghe OLS, Efewongbe Attending Unavailabl e Oleghe, Efewongbe Attending Unavailable Elderbrock, Kameron Primary Care Unavailable Elderbrock, Kameron Primary Care Unavailable [place]ickton BUFFET MANAGER, Bret Attending Unavailable Elderbrock, Kameron Primary Care Unavailable [place] BUFFET MANAGER, Bret Attending Unavailable Elderbrock, Kameron Primary Care Unavailable Oleghe, Efewongbe Attending Unavailable Elderbrock, Kameron Primary Care Unavailable Makayla, [place] Attending Unavailable Elderbrock, Kameron Referring Unavailable Elderbrock, Kameron Primary Care Unavailable Oleghe, Efewongbe Attending Unavailable Tickton BUFFET MANAGER, Bret Attending Unavailable Elderbrock, Kameron Primary Care Unavailable [place] BUFFET MANAGER, Bret Attending Unavailable Elderbrock, Kameron Primary Care Unavailable Elderbrock, Kameron Primary Care Unavailable [place] BUFFET MANAGER, Bret Attending Unavailable Elderbrock, Kameron Primary Care [...] reactions to drug 6 Other (See Comments) [place], [place] (2 sources) Other Propensity to adverse reactions 6 Shortness Of Breath [place], [place] (20 sources) Benzocaine; Translations: [BENZOCAINE] Drug Allergy 6 Rash [facility] Work Phone: (20 sources) Cocaine; Translations: [COCAINE] Drug Allergy 9 Inverted T waves [facility] Work Phone: (20 sources) Sulfonamides (Antibiotic); Translations: [SULFA (SULFONAMIDE ANTIBIOTICS)] Propensity to adverse reactions 6 Intolerance [facility] Work Phone: (20 sources) Perfumes; Translations: [PERFUMES] Propensity to adverse reactions 6 Shortness of Breath [facility] Work Phone: (12 sources) Sulfonamides (Antibiotic) Allergy to substance 5 Unknown [facility] (14 sources) perfume; Translations: [perfume] Allergy to substance 5 Shortness of breath [facility] (1 source) Cocaine; Translations: [cocaine nasal] Drug Allergy [facility] (1 source) Codeine; Translations: [codeine] Drug Allergy Pharyngeal swelling (finding) [facility] (1 source) Sulfonamide; Translations: [sulfa drugs] Drug allergy [facility] (1 source) Benzocaine Drug Allergy 5 [facility] (1 source) Cocaine Drug Allergy 5 [facility] (1 source) Sulfonamides (Antibiotic) Drug allergy (disorder) 5 [facility] Medications Current Medications Medication Drug [...] days. donepezil hydrochloride 5 mg oral tablet (12 sources) Start: Start: 09-05-2024 Aricept 5 mg [...] kidney disease, unspecified CKD stage, 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 (HCC) , Type 2 diabetes [...] Sig (Original) amoxicillin 500 mg oral capsule (12 sources) Penicillin-class Antibacterial Start: 08-02-2024 End: 10-02-2024 [...] needed doxycycline hyclate 100 mg oral capsule (16 sources) Tetracycline-class Drug Start: 2024 End: 2024 [...] kidney disease, unspecified CKD stage, 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 (HCC) Take 1 tablet [...] capsules by m outh once daily sennosides, jail 8.6 mg oral tablet (2 sources) Start: 08-09-2024 End: 08-15-2024 Start: 08-04-2024 End: 08-09-2024 triamcinolone acetonide 0.15026 mg/mg topical ointment (3 sources) Corticosteroid Start: [...] HOURS, First dose (after last modification) on [facility] 08/03/24 at 1800, Until Discontinued, Correction factor [...] Routine, EVERY 6 HOURS, First occurrence on [facility] 08/03/24 at 1800, If any Blood Glucose (POC) is greater than 300mg/dl, treat per correction factor orders; and repeat Blood Glucose (POC) in 2 hours if second blood glucose is greater than 200mg/dl, then notify dope dry house operator. [Order 2 End] [Order 3 [...] at 1301, Until Specified, Who to Notify: Laundry Housekeeper, For all Blood Glucose LESS THAN 80 mg/dl, notify Laundry Housekeeper after treatment per Hypoglycemia in Non- Adults [...] stenosis of right middle cerebral artery] Onset: 08-02-2024 Chronic Allergic reactions (1 source) Allergic contact dermatitis [...] kidney disease, stage 3a (HCC)] Onset: 4 Coronary atherosclerosis and other heart disease (14 sources) Coronary arteriosclerosis; Translations: [Atherosclerotic heart disease of [place] coronary artery without angina pectoris] Onset: 5 07-03-2024 Chronic Diabetes mellitus with complications (20 sources) Type 2 diabetes mellitus; Translations: [Type 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] Onset: 4 Resolved: 1 11-03-2020 Chronic Diabetes mellitus without complication (19 sources) Diabetes mellitus; Translations: [Type 2 diabetes mellitus without complications] Onset: 5 Resolved: 4 11-26-2013 Chronic Disorders of lipid metabolism (20 sources) Hyperlipidemia; Translations: [Hyperlipidemia, unspecified] Onset: 4 Resolved: 4 11-26-2013 Chronic Essential hypertension (20 sources) Benign essential hypertension; Translations: [Essential (primary) hypertension] Onset: 6 07-08-2005 Chronic Genitourinary symptoms and ill-defined conditions (1 source) [...] immunization] Episodic Late effects of cerebrovascular disease (8 sources) 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; Translations: [Facial weakness following nontraumatic intracerebral hemorrhage] Onset: 5 Chronic Osteoarthritis (4 sources) Osteoarthritis; Translations: [Unspecified osteoarthritis, unspecified site] Onset: 5 Chronic Other aftercare (12 sources) 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; Translations: [middle or intermediate school principal (current) use of anticoagulants] 08-02-2024 Episodic Other diseases of bladder and urethra (1 source) Overactive bladder; Translations: [Overactive bladder] Onset: 5 Chronic Other diseases of kidney and ureters (14 sources) Kidney disease; Translations: [Disorder of kidney and ureter, unspecified] Onset: 5 07-03-2024 Episodic Other diseases of kidney and ureters (12 sources) Chronic renal insufficiency; Translations: [Disorder of kidney and ureter, unspecified] 08-02-2024 Episodic Other eye disorders (12 sources) H/O: Bilateral cataract extraction; Translations: [Cataract [...] [Psoriasis, unspecified] Onset: 4 11-26-2013 Chronic Other skin disorders (1 source) Eruption; Translations: [Rash and other nonspecific skin eruption] 10-10-2023 Episodic Other upper respiratory infections (12 sources) Upper respiratory infection; Translations: [Acute upper [...] [Need for malaria prophylaxis] Onset: 5 Unclassified (2 sources) CVA Onset: 5 Unclassified (1 source) Cough, unspecified; Translations: [Cough, unspecified] Onset: Past or Other Problems Problem Classification Problem Date Documented Da te Episodic/Chronic Administrative/social admission (1 source) Need for assistance with personal care; Translations: [Need for assistance with personal care] Onset: 08-15-2024 Episodic Coma; stupor; and brain damage (1 source) Somnolence; Translations: [Somnolence] Onset: 08-15-2024 Episodic Fluid and electrolyte disorders (1 source) Hypo-osmolality and hyponatremia; Translations: [Hypo-osmolality and hyponatremia] Onset: 08-15-2024 Episodic Malaise and fatigue (2 sources) Other malaise; Translations: [Weakness] Onset: 08-15-2024 Episodic Mycoses (1 source) Candidal stomatitis; Translations: [Candidal stomatitis] Onset: 08-15-2024 Episodic Nausea and vomiting (1 source) Nausea; Translations: [Nausea] Onset: 08-15-2024 Episodic Other aftercare (1 source) middle or intermediate school principal (current) use of aspirin; Translations: [MCFP (current) use of aspirin] Onset: 08-15-2024 Episodic Other aftercare (1 source) MCFP (current) use of anticoagulants; Translations: [middle or intermediate school principal (current) use of anticoagulants] Onset: 08-15-2024 Episodic Other aftercare (1 source) middle or intermediate school principal (current) use of oral hypoglycemic drugs; Translations: [middle or intermediate school principal (current) use of oral hypoglycemic drugs] Onset: 08-15-2024 Episodic Other circulatory disease (1 source) Hypotension, unspecified; Translations: [Hypotension, unspecified] Onset: 08-15-2024 Episodic Other connective tissue disease (1 source) Pain in left arm; Translations: [Pain in left arm] Onset: 08-15-2024 Episodic Other gastrointestinal disorders (1 source) Dysphagia, unspecified; Translations: [Dysphagia, unspecified] Onset: 08-15-2024 Episodic Other injuries and conditions due to external causes (1 source) Unspecified injury of head, initial encounter; Translations: [Unspecified injury of head, initial encounter] Onset: 08-09-2024 Episodic Other nervous system disorders (1 source) Slurred speech; Translations: [Slurred speech] Onset: 08-15-2024 Episodic Other nervous system disorders (1 source) Unspecified abnormalities of gait and mobility; Translations: [Unspecified abnormalities of gait and mobility] Onset: 08-15-2024 Episodic Other nervous system disorders (1 source) Other symptoms and signs involving cognitive functions and awareness; Translations: [Other symptoms and signs involving cognitive functions and awareness] Onset: 08-15-2024 Episodic Other non-traumatic joint disorders (20 sources) [...] left foot] Onset: 11-13-2020 11-13-2020 Episodic Other skin disorders (1 source) Xerosis cutis; Translations: [Xerosis cutis] Onset: 08-15-2024 Episodic Urinary tract infections (1 source) Urinary tract infection, site not specified; Translations: [Urinary tract infection, site not specified] Onset: 11-11-2024 Episodic Results Test Name Value Interpretation Reference Range Facility Absolute lymphocyte countOrd ered By: Safia Ruelas on 02-11-2025 Lymphocytes Auto (Unsp spec) [#/Vol] 2.71 10*3/uL 0.83-4.51 [facility] Anion gap in Serum or Plasma Ordered By: Safia Ruelas on 02-11-2025 Anion gap [Moles/Vol] 14 mmol/L 5-15 [facility] Automated lymphocyte count a s percentage of total leukocytesOrdered By: Safia Ruelas on 02-11-2025 Lymphocytes/100 WBC Auto (Unsp spec) 36.1 % 19-41 [facility] BUN/creatinine ratioOrdered By: Safia Ruelas on 02-11-2025 Urea nitrogen/Creatinine [Mass ratio] 23.1 mg/mg High 10-20 [facility] Basophil percentageOrdered B y: Safia Ruelas on 02-11-2025 Basophils/100 WBC (Bld) 0.7 % 0-1 [facility] Carbon dioxide, total [Moles /volume] in Central venous bloodOrdered By: Safia Cheoquyen on 02-11-2025 CO2 [Moles/Vol] 21.6 mmol/L 21.0-32.0 [facility] Chloride assayOrdered By: Balbir jean marieskye Cheoquyen on 02-11-2025 Chloride [Moles/Vol] 103 mmol/L 98-108 [facility] Eosinophil percentageOrdered By: Safia Ruelas on 02-11-2025 Eosinophils/100 WBC (Bld) 2.0 % 0-5 [facility] Erythrocyte distribution wid th ratioOrdered By: Safia Cheobonimelanie on 02-11-2025 Erythrocyte distribution width (RBC) [Ratio] 14.4 % 11.6-14.6 [facility] Erythrocyte distribution wid th standard deviationOrdered By: jean mariemontereyskye Ruelas on 02-11-2025 Erythrocyte distribution width (RBC) [Ratio] 47.5 fl High 35.1-43.9 [facility] Glomerular filtration rate ( GFR) estimation/1.73 sq m using serum, plasma, or whole bOrdered By: Safia Cheobonimelanie on 02-11-2025 GFR/1.73 sq M.predicted among non-blacks MDRD (S/P/Bld) [Vol rate/Area] 72 mL/min/{1.73_m2} >60 [facility] Hematocrit Auto (Bld) [Volum e fraction]Ordered By: Safia Ruelas on 02-11-2025 Hematocrit (Bld) [Volume fraction] 37.4 % 37-47 [facility] Hemoglobin measurementOrdere d By: Safia Ruelas on 02-11-2025 Hemoglobin (Bld) [Mass/Vol] 12.4 g/dL 12.0-15.0 [facility] Immature granulocytes/100 WB C Auto (Bld)Ordered By: sherry Cheoquyen on 02-11-2025 Immature granulocytes/100 WBC (Bld) 0.400 % 0.0-0.9 [facility] MCV (mean corpuscular volume ) determinationOrdered By: Leonidesmontereyskye Cheoquyen on 02-11-2025 MCV (RBC) [Entitic vol] 90.3 fL 81-99 [facility] Mean corpuscular hemoglobin (MCH) determinationOrdered By: Safia Ruelas on 02-11-2025 MCH (RBC) [Entitic mass] 30.0 pg 27.0-32.0 [facility] Monocyte percentageOrdered B y: Safia Ruelas on 02-11-2025 Monocytes/100 WBC (Bld) 6.8 % 0-10 [facility] Neutrophil percentageOrdered By: [facility] R[facility] on 02-11-2025 Neutrophils/100 WBC (Bld) 54.0 % 47-70 [facility] Platelet countOrdered By: Balbir Ruelas on 02-11-2025 Platelets (Bld) [#/Vol] 260 10*3/uL 150-450 [facility] Potassium measurement (mass/ volume)Ordered By: Safia Ruelas on 02-11-2025 Potassium (Unsp spec) [Mass/Vol] 3.6 mmol/L 3.3-5.1 [facility] RBC Auto (Bld) [#/Vol]Ordere d By: Safia Ruelas on 02-11-2025 RBC (Bld) [#/Vol] 4.14 10*6/uL Low 4.2-5.4 [facility] Serum creatinine measurement (mass/volume)Ordered By: Safia Ruelas on 02-11-2025 Creatinine [Mass/Vol] 0.83 mg/dL 0.70-1.20 [facility] Serum glucose measurement (m ass/volume)Ordered By: Safia Ruelas on 02-11-2025 Glucose [Mass/Vol] 110 mg/dL High 70-99 [facility] Serum or plasma calcium dayna urement (mass/volume)Ordered By: Safia Griderbonimelanie on 02-11-2025 Calcium [Mass/Vol] 9.1 mg/dL 7.6-11.0 [facility] Serum or plasma urea nitroge n measurement (mass/volume)Ordered By: Safia Ruelas on 02-11-2025 Urea nitrogen [Mass/Vol] 19 mg/dL 4-19 [facility] Sodium levelOrdered By: Leonides josé antonio Jessenia on 02-11-2025 Sodium [Moles/Vol] 139 mmol/L 133-145 [facility] White blood cell (WBC) count Ordered By: Safia Ruelas on 02-11-2025 WBC (Bld) [#/Vol] 7.5 10*3/uL 4.4-11.0 [facility] Absolute lymphocyte countOrd ered By: Safia Griderbonimelanie on 02-04-2025 Lymphocytes Auto (Unsp spec) [#/Vol] 3.03 10*3/uL 0.83-4.51 [facility] Anion gap in Serum or Plasma Ordered By: Safia Ruelas on 02-04-2025 Anion gap [Moles/Vol] 12 mmol/L 5-15 [facility] Automated lymphocyte count a s percentage of total leukocytesOrdered By: Safia Ruelas on 02-04-2025 Lymphocytes/100 WBC Auto (Unsp spec) 36.1 % 19-41 [facility] BUN/creatinine ratioOrdered By: Safia Griderbonimelanie on 02-04-2025 Urea nitrogen/Creatinine [Mass ratio] 21.0 mg/mg High 10-20 [facility] Basophil percentageOrdered B y: Safia Ruelas on 02-04-2025 Basophils/100 WBC (Bld) 0.7 % 0-1 [facility] Carbon dioxide, total [Moles /volume] in Central venous bloodOrdered By: Safia Ruelas on 02-04-2025 CO2 [Moles/Vol] 23.5 mmol/L 21.0-32.0 [facility] Chloride assayOrdered By: sherry Ruelas on 02-04-2025 Chloride [Moles/Vol] 103 mmol/L 98-108 [facility] Eosinophil percentageOrdered By: Safia Ruelas on 02-04-2025 Eosinophils/100 WBC (Bld) 2.3 % 0-5 [facility] Erythrocyte distribution wid th ratioOrdered By: jean mariemontereyskye Ruelas on 02-04-2025 Erythrocyte distribution width (RBC) [Ratio] 14.5 % 11.6-14.6 [facility] Erythrocyte distribution wid th standard deviationOrdered By: jean mariemontereyskye Ruelas on 02-04-2025 Erythrocyte distribution width (RBC) [Ratio] 47.8 fl High 35.1-43.9 [facility] Glomerular filtration rate ( GFR) estimation/1.73 sq m using serum, plasma, or whole bOrdered By: Safia Ruelas on 02-04-2025 GFR/1.73 sq M.predicted among non-blacks MDRD (S/P/Bld) [Vol rate/Area] 85 mL/min/{1.73_m2} >60 [facility] Hematocrit Auto (Bld) [Volum e fraction]Ordered By: Safia Ruelas on 02-04-2025 Hematocrit (Bld) [Volume fraction] 38.3 % 37-47 [facility] Hemoglobin measurementOrdere d By: Safia Ruelas on 02-04-2025 Hemoglobin (Bld) [Mass/Vol] 12.4 g/dL 12.0-15.0 [facility] Immature granulocytes/100 WB C Auto (Bld)Ordered By: Safia Ruelas on 02-04-2025 Immature granulocytes/100 WBC (Bld) 0.400 % 0.0-0.9 [facility] MCV (mean corpuscular volume ) determinationOrdered By: Balbirjean mariedesireeskye Griderbonimelanie on 02-04-2025 MCV (RBC) [Entitic vol] 90.3 fL 81-99 [facility] Mean corpuscular hemoglobin (MCH) determinationOrdered By: Safia Ruelas on 02-04-2025 MCH (RBC) [Entitic mass] 29.2 pg 27.0-32.0 [facility] Monocyte percentageOrdered B y: Safia Cheoquyen on 02-04-2025 Monocytes/100 WBC (Bld) 7.9 % 0-10 [facility] Neutrophil percentageOrdered By: Safia Cheoquyen on 02-04-2025 Neutrophils/100 WBC (Bld) 52.6 % 47-70 [facility] Platelet countOrdered By: Balbir sherry Cheobonimelanie on 02-04-2025 Platelets (Bld) [#/Vol] 278 10*3/uL 150-450 [facility] Potassium measurement (mass/ volume)Ordered By: Balbirsherry Ruelas on 02-04-2025 Potassium (Unsp spec) [Mass/Vol] 3.4 mmol/L 3.3-5.1 [facility] RBC Auto (Bld) [#/Vol]Ordere d By: Safia Cheoquyen on 02-04-2025 RBC (Bld) [#/Vol] 4.24 10*6/uL 4.2-5.4 [facility] Serum creatinine measurement (mass/volume)Ordered By: Safia Ruelas on 02-04-2025 Creatinine [Mass/Vol] 0.71 mg/dL 0.70-1.20 [facility] Serum glucose measurement (m ass/volume)Ordered By: Safia Ruelas on 02-04-2025 Glucose [Mass/Vol] 141 mg/dL High 70-99 [facility] Serum or plasma calcium dayna urement (mass/volume)Ordered By: Balbirjean mariedesireeskye Griderbonimelanie on 02-04-2025 Calcium [Mass/Vol] 9.0 mg/dL 7.6-11.0 [facility] Serum or plasma urea nitroge n measurement (mass/volume)Ordered By: Safia Ruelas on 02-04-2025 Urea nitrogen [Mass/Vol] 15 mg/dL 4-19 [facility] Sodium levelOrdered By: Leonides Ruelas on 02-04-2025 Sodium [Moles/Vol] 139 mmol/L 133-145 [facility] White blood cell (WBC) count Ordered By: Safia Ruelas on 02-04-2025 WBC (Bld) [#/Vol] 8.4 10*3/uL 4.4-11.0 [facility] Absolute lymphocyte countOrd ered By: Safia Ruelas on 01-28-2025 Lymphocytes Auto (Unsp spec) [#/Vol] 3.03 10*3/uL 0.83-4.51 [facility] Anion gap in Serum or Plasma Ordered By: Safia Ruelas on 01-28-2025 Anion gap [Moles/Vol] 12 mmol/L 5-15 [facility] Automated lymphocyte count a s percentage of total leukocytesOrdered By: Safia Ruelas on 01-28-2025 Lymphocytes/100 WBC Auto (Unsp spec) 36.0 % 19-41 [facility] BUN/creatinine ratioOrdered By: Safia Cheoquyen on 01-28-2025 Urea nitrogen/Creatinine [Mass ratio] 20.0 mg/mg 10-20 [facility] Basophil percentageOrdered B y: Safia Ruelas on 01-28-2025 Basophils/100 WBC (Bld) 0.6 % 0-1 [facility] Carbon dioxide, total [Moles /volume] in Central venous bloodOrdered By: Safia Ruelas on 01-28-2025 CO2 [Moles/Vol] 24.7 mmol/L 21.0-32.0 [facility] Chloride assayOrdered By: Balbir sherry Cheobonimelanie on 01-28-2025 Chloride [Moles/Vol] 103 mmol/L 98-108 [facility] Eosinophil percentageOrdered By: Safia Cheobonimelanie on 01-28-2025 Eosinophils/100 WBC (Bld) 1.8 % 0-5 [facility] Erythrocyte distribution wid th ratioOrdered By: Balbirjean mariejosé antonio Cheobonimelanie on 01-28-2025 Erythrocyte distribution width (RBC) [Ratio] 14.6 % 11.6-14.6 [facility] Erythrocyte distribution wid th standard deviationOrdered By: Safia Griderbonimelanie on 01-28-2025 Erythrocyte distribution width (RBC) [Ratio] 48.6 fl High 35.1-43.9 [facility] Glomerular filtration rate ( GFR) estimation/1.73 sq m using serum, plasma, or whole bOrdered By: Safia Ruelas on 01-28-2025 GFR/1.73 sq M.predicted among non-blacks MDRD (S/P/Bld) [Vol rate/Area] 88 mL/min/{1.73_m2} >60 [facility] Hematocrit Auto (Bld) [Volum e fraction]Ordered By: Safia Ruelas on 01-28-2025 Hematocrit (Bld) [Volume fraction] 38.1 % 37-47 [facility] Hemoglobin measurementOrdere d By: Safia Ruelas on 01-28-2025 Hemoglobin (Bld) [Mass/Vol] 12.3 g/dL 12.0-15.0 [facility] Immature granulocytes/100 WB C Auto (Bld)Ordered By: Safia Ruelas on 01-28-2025 Immature granulocytes/100 WBC (Bld) 0.400 % 0.0-0.9 [facility] MCV (mean corpuscular volume ) determinationOrdered By: Safia Ruelas on 01-28-2025 MCV (RBC) [Entitic vol] 90.7 fL 81-99 [facility] Mean corpuscular hemoglobin (MCH) determinationOrdered By: Safia Ruelas on 01-28-2025 MCH (RBC) [Entitic mass] 29.3 pg 27.0-32.0 [facility] Monocyte percentageOrdered B y: Safia Ruelas on 01-28-2025 Monocytes/100 WBC (Bld) 8.2 % 0-10 [facility] Neutrophil percentageOrdered By: Safia Ruelas on 01-28-2025 Neutrophils/100 WBC (Bld) 53.0 % 47-70 [facility] Platelet countOrdered By: Balbir Ruelas on 01-28-2025 Platelets (Bld) [#/Vol] 261 10*3/uL 150-450 [facility] Potassium measurement (mass/ volume)Ordered By: Safia Ruelas on 01-28-2025 Potassium (Unsp spec) [Mass/Vol] 3.4 mmol/L 3.3-5.1 [facility] RBC Auto (Bld) [#/Vol]Ordere d By: Safia Cheoquyen on 01-28-2025 RBC (Bld) [#/Vol] 4.20 10*6/uL 4.2-5.4 [facility] Serum creatinine measurement (mass/volume)Ordered By: Safia Cheoquyen on 01-28-2025 Creatinine [Mass/Vol] 0.66 mg/dL Low 0.70-1.20 [facility] Serum glucose measurement (m ass/volume)Ordered By: Balbirjean mariejosé antonio Cheoquyen on 01-28-2025 Glucose [Mass/Vol] 130 mg/dL High 70-99 [facility] Serum or plasma calcium dayna urement (mass/volume)Ordered By: Safia Ruelas on 01-28-2025 Calcium [Mass/Vol] 9.0 mg/dL 7.6-11.0 [facility] Serum or plasma urea nitroge n measurement (mass/volume)Ordered By: Safia Cheoquyen on 01-28-2025 Urea nitrogen [Mass/Vol] 13 mg/dL 4-19 [facility] Sodium levelOrdered By: Leonides chou Cheobonimelanie on 01-28-2025 Sodium [Moles/Vol] 140 mmol/L 133-145 [facility] White blood cell (WBC) count Ordered By: Safia Cheoquyen on 01-28-2025 WBC (Bld) [#/Vol] 8.4 10*3/uL 4.4-11.0 [facility] Absolute lymphocyte countOrd ered By: Safia Ruelas on 01-21-2025 Lymphocytes Auto (Unsp spec) [#/Vol] 3.26 10*3/uL 0.83-4.51 [facility] Anion gap in Serum or Plasma Ordered By: Safia Ruelas on 01-21-2025 Anion gap [Moles/Vol] 13 mmol/L 5-15 [facility] Automated lymphocyte count a s percentage of total leukocytesOrdered By: Safia Ruelas on 01-21-2025 Lymphocytes/100 WBC Auto (Unsp spec) 38.3 % 19-41 [facility] BUN/creatinine ratioOrdered By: Safia Ruelas on 01-21-2025 Urea nitrogen/Creatinine [Mass ratio] 20.0 mg/mg 10-20 [facility] Basophil percentageOrdered B y: Safia Ruelas on 01-21-2025 Basophils/100 WBC (Bld) 0.6 % 0-1 [facility] Carbon dioxide, total [Moles /volume] in Central venous bloodOrdered By: Safia Ruelas on 01-21-2025 CO2 [Moles/Vol] 22.3 mmol/L 21.0-32.0 [facility] Chloride assayOrdered By: Balbir Ruelas on 01-21-2025 Chloride [Moles/Vol] 102 mmol/L 98-108 [facility] Eosinophil percentageOrdered By: Safia Ruelas on 01-21-2025 Eosinophils/100 WBC (Bld) 2.1 % 0-5 [facility] Erythrocyte distribution wid th ratioOrdered By: Safia Ruelas on 01-21-2025 Erythrocyte distribution width (RBC) [Ratio] 14.4 % 11.6-14.6 [facility] Erythrocyte distribution wid th standard deviationOrdered By: Safia Ruelas on 01-21-2025 Erythrocyte distribution width (RBC) [Ratio] 47.1 fl High 35.1-43.9 [facility] Glomerular filtration rate ( GFR) estimation/1.73 sq m using serum, plasma, or whole bOrdered By: Safia Ruelas on 01-21-2025 GFR/1.73 sq M.predicted among non-blacks MDRD (S/P/Bld) [Vol rate/Area] 86 mL/min/{1.73_m2} >60 [facility] Hematocrit Auto (Bld) [Volum e fraction]Ordered By: Safia Ruelas on 01-21-2025 Hematocrit (Bld) [Volume fraction] 37.8 % 37-47 [facility] Hemoglobin measurementOrdere d By: Safia Ruelas on 01-21-2025 Hemoglobin (Bld) [Mass/Vol] 12.6 g/dL 12.0-15.0 [facility] Immature granulocytes/100 WB C Auto (Bld)Ordered By: Safia Cheobonimelanie on 01-21-2025 Immature granulocytes/100 WBC (Bld) 0.400 % 0.0-0.9 [facility] MCV (mean corpuscular volume ) determinationOrdered By: Safia Cheobonimelanie on 01-21-2025 MCV (RBC) [Entitic vol] 89.6 fL 81-99 [facility] Mean corpuscular hemoglobin (MCH) determinationOrdered By: jean mariemontereyskye Cheobonimelanie on 01-21-2025 MCH (RBC) [Entitic mass] 29.9 pg 27.0-32.0 [facility] Monocyte percentageOrdered B y: Safia Ruelas on 01-21-2025 Monocytes/100 WBC (Bld) 6.9 % 0-10 [facility] Neutrophil percentageOrdered By: jean mariemontereyskye Ruelas on 01-21-2025 Neutrophils/100 WBC (Bld) 51.7 % 47-70 [facility] Platelet countOrdered By: Balbir Reulas on 01-21-2025 Platelets (Bld) [#/Vol] 280 10*3/uL 150-450 [facility] Potassium measurement (mass/ volume)Ordered By: Safia Cheobonimelanie on 01-21-2025 Potassium (Unsp spec) [Mass/Vol] 3.6 mmol/L 3.3-5.1 [facility] RBC Auto (Bld) [#/Vol]Ordere d By: Safia Ruelas on 01-21-2025 RBC (Bld) [#/Vol] 4.22 10*6/uL 4.2-5.4 [facility] Serum creatinine measurement (mass/volume)Ordered By: Safia Cheobonimleanie on 01-21-2025 Creatinine [Mass/Vol] 0.71 mg/dL 0.70-1.20 [facility] Serum glucose measurement (m ass/volume)Ordered By: Safia Ruelas on 01-21-2025 Glucose [Mass/Vol] 126 mg/dL High 70-99 [facility] Serum or plasma calcium dayna urement (mass/volume)Ordered By: Safia Ruelas on 01-21-2025 Calcium [Mass/Vol] 9.0 mg/dL 7.6-11.0 [facility] Serum or plasma urea nitroge n measurement (mass/volume)Ordered By: Safia Ruelas on 01-21-2025 Urea nitrogen [Mass/Vol] 14 mg/dL 4-19 [facility] Sodium levelOrdered By: Leonides Ruelas on 01-21-2025 Sodium [Moles/Vol] 137 mmol/L 133-145 [facility] White blood cell (WBC) count Ordered By: Safia Ruelas on 01-21-2025 WBC (Bld) [#/Vol] 8.5 10*3/uL 4.4-11.0 [facility] Absolute lymphocyte countOrd ered By: Safia Ruelas on 01-14-2025 Lymphocytes Auto (Unsp spec) [#/Vol] 2.54 10*3/uL 0.83-4.51 [facility] Anion gap in Serum or Plasma Ordered By: Safia Ruelas on 01-14-2025 Anion gap [Moles/Vol] 13 mmol/L 5-15 [facility] Automated lymphocyte count a s percentage of total leukocytesOrdered By: Safia Ruelas on 01-14-2025 Lymphocytes/100 WBC Auto (Unsp spec) 30.6 % 19-41 [facility] BUN/creatinine ratioOrdered By: Safia Ruelas on 01-14-2025 Urea nitrogen/Creatinine [Mass ratio] 16.0 mg/mg 10-20 [facility] Basophil percentageOrdered B y: Safia Ruelas on 01-14-2025 Basophils/100 WBC (Bld) 0.6 % 0-1 [facility] Carbon dioxide, total [Moles /volume] in Central venous bloodOrdered By: Safia Ruelas on 01-14-2025 CO2 [Moles/Vol] 22.8 mmol/L 21.0-32.0 [facility] Chloride assayOrdered By: Balbir Ruelas on 01-14-2025 Chloride [Moles/Vol] 104 mmol/L 98-108 [facility] Eosinophil percentageOrdered By: Safia Ruelas 01-14-2025 Eosinophils/100 WBC (Bld) 2.2 % 0-5 [facility] Erythrocyte distribution wid th ratioOrdered By: Safia Ruelas on 01-14-2025 Erythrocyte distribution width (RBC) [Ratio] 14.6 % 11.6-14.6 [facility] Erythrocyte distribution wid th standard deviationOrdered By: Safia Ruelas on 01-14-2025 Erythrocyte distribution width (RBC) [Ratio] 48.7 fl High 35.1-43.9 [facility] Glomerular filtration rate ( GFR) estimation/1.73 sq m using serum, plasma, or whole bOrdered By: Safia Ruelas on 01-14-2025 GFR/1.73 sq M.predicted among non-blacks MDRD (S/P/Bld) [Vol rate/Area] 84 mL/min/{1.73_m2} >60 [facility] Hematocrit Auto (Bld) [Volum e fraction]Ordered By: Safia Ruelas on 01-14-2025 Hematocrit (Bld) [Volume fraction] 37.6 % 37-47 [facility] Hemoglobin measurementOrdere d By: Safia Ruelas on 01-14-2025 Hemoglobin (Bld) [Mass/Vol] 12.1 g/dL 12.0-15.0 [facility] Immature granulocytes/100 WB C Auto (Bld)Ordered By: Safia Ruelas on 01-14-2025 Immature granulocytes/100 WBC (Bld) 0.500 % 0.0-0.9 [facility] MCV (mean corpuscular volume ) determinationOrdered By: Safia Ruelas on 01-14-2025 MCV (RBC) [Entitic vol] 90.8 fL 81-99 [facility] Mean corpuscular hemoglobin (MCH) determinationOrdered By: Balbirjean mariedesireeskye Griderbonimelanie on 01-14-2025 MCH (RBC) [Entitic mass] 29.2 pg 27.0-32.0 [facility] Monocyte percentageOrdered B y: Safia Cheoqyuen on 01-14-2025 Monocytes/100 WBC (Bld) 7.8 % 0-10 [facility] Neutrophil percentageOrdered By: Safia Cheoquyen on 01-14-2025 Neutrophils/100 WBC (Bld) 58.3 % 47-70 [facility] Platelet countOrdered By: Balbir sherry Cheobonimelanie on 01-14-2025 Platelets (Bld) [#/Vol] 284 10*3/uL 150-450 [facility] Potassium measurement (mass/ volume)Ordered By: Balbirjean mariedesireeskye Griderbonimelanie on 01-14-2025 Potassium (Unsp spec) [Mass/Vol] 3.5 mmol/L 3.3-5.1 [facility] RBC Auto (Bld) [#/Vol]Ordere d By: Safia Cheoquyen on 01-14-2025 RBC (Bld) [#/Vol] 4.14 10*6/uL Low 4.2-5.4 [facility] Serum creatinine measurement (mass/volume)Ordered By: Balbirjean mariedesireeskye Griderbonimelanie on 01-14-2025 Creatinine [Mass/Vol] 0.73 mg/dL 0.70-1.20 [facility] Serum glucose measurement (m ass/volume)Ordered By: Balbirjean mariedesireeskye Ruelas on 01-14-2025 Glucose [Mass/Vol] 137 mg/dL High 70-99 [facility] Serum or plasma calcium dayna urement (mass/volume)Ordered By: Safia Griderbonimelanie on 01-14-2025 Calcium [Mass/Vol] 8.8 mg/dL 7.6-11.0 [facility] Serum or plasma urea nitroge n measurement (mass/volume)Ordered By: Balbirsherry Griderbonimelanie on 01-14-2025 Urea nitrogen [Mass/Vol] 12 mg/dL 4-19 [facility] Sodium levelOrdered By: Balbirjean marie josé antonio Cheobonimelanie on 01-14-2025 Sodium [Moles/Vol] 139 mmol/L 133-145 [facility] TSH DL <= 0.005 mIU/L QnOrde red By: Safia Ruelas on 01-14-2025 TSH Qn 1.730 uIU/mL 0.300-4.200 [facility] White blood cell (WBC) count Ordered By: Safia Ruelas on 01-14-2025 WBC (Bld) [#/Vol] 8.3 10*3/uL 4.4-11.0 [facility] Absolute lymphocyte countOrd ered By: Safia Ruelas on 01-07-2025 Lymphocytes Auto (Unsp spec) [#/Vol] 2.90 10*3/uL 0.83-4.51 [facility] Anion gap in Serum or Plasma Ordered By: Safia Ruelas on 01-07-2025 Anion gap [Moles/Vol] 12 mmol/L 5-15 [facility] Automated lymphocyte count a s percentage of total leukocytesOrdered By: Safia Ruelas on 01-07-2025 Lymphocytes/100 WBC Auto (Unsp spec) 36.3 % 19-41 [facility] BUN/creatinine ratioOrdered By: Safia Ruelas on 01-07-2025 Urea nitrogen/Creatinine [Mass ratio] 15.4 mg/mg 10-20 [facility] Basophil percentageOrdered B y: Safia Ruelas on 01-07-2025 Basophils/100 WBC (Bld) 0.6 % 0-1 [facility] Carbon dioxide, total [Moles /volume] in Central venous bloodOrdered By: Safia Ruelas on 01-07-2025 CO2 [Moles/Vol] 23.2 mmol/L 21.0-32.0 [facility] Chloride assayOrdered By: Balbir Ruelas on 01-07-2025 Chloride [Moles/Vol] 104 mmol/L 98-108 [facility] Eosinophil percentageOrdered By: Safia Ruelas on 01-07-2025 Eosinophils/100 WBC (Bld) 2.3 % 0-5 [facility] Erythrocyte distribution wid th ratioOrdered By: Safia Ruelas on 01-07-2025 Erythrocyte distribution width (RBC) [Ratio] 14.6 % 11.6-14.6 [facility] Erythrocyte distribution wid th standard deviationOrdered By: Safia Griderbonimelanie on 01-07-2025 Erythrocyte distribution width (RBC) [Ratio] 48.5 fl High 35.1-43.9 [facility] Glomerular filtration rate ( GFR) estimation/1.73 sq m using serum, plasma, or whole bOrdered By: Safia Ruelas on 01-07-2025 GFR/1.73 sq M.predicted among non-blacks MDRD (S/P/Bld) [Vol rate/Area] 86 mL/min/{1.73_m2} >60 [facility] Hematocrit Auto (Bld) [Volum e fraction]Ordered By: Safia Ruelas on 01-07-2025 Hematocrit (Bld) [Volume fraction] 36.6 % Low 37-47 [facility] Hemoglobin measurementOrdere d By: Safia Ruelas on 01-07-2025 Hemoglobin (Bld) [Mass/Vol] 11.9 g/dL Low 12.0-15.0 [facility] Immature granulocytes/100 WB C Auto (Bld)Ordered By: Safia Ruelas on 01-07-2025 Immature granulocytes/100 WBC (Bld) 0.300 % 0.0-0.9 [facility] MCV (mean corpuscular volume ) determinationOrdered By: Safia Ruelas on 01-07-2025 MCV (RBC) [Entitic vol] 90.6 fL 81-99 [facility] Mean corpuscular hemoglobin (MCH) determinationOrdered By: Safia Ruelas on 01-07-2025 MCH (RBC) [Entitic mass] 29.5 pg 27.0-32.0 [facility] Monocyte percentageOrdered B y: Safia Ruelas on 01-07-2025 Monocytes/100 WBC (Bld) 7.9 % 0-10 [facility] Neutrophil percentageOrdered By: Safia Ruelas on 01-07-2025 Neutrophils/100 WBC (Bld) 52.6 % 47-70 [facility] Platelet countOrdered By: Balbir pereiraskye Griderbonimelanie on 01-07-2025 Platelets (Bld) [#/Vol] 263 10*3/uL 150-450 [facility] Potassium measurement (mass/ volume)Ordered By: Leonidesdesireeskye Griderbonimelanie on 01-07-2025 Potassium (Unsp spec) [Mass/Vol] 3.5 mmol/L 3.3-5.1 [facility] RBC Auto (Bld) [#/Vol]Ordere d By: Leonidesdesireeskye Griderbonimelanie on 01-07-2025 RBC (Bld) [#/Vol] 4.04 10*6/uL Low 4.2-5.4 [facility] Serum creatinine measurement (mass/volume)Ordered By: Safia Ruelas on 01-07-2025 Creatinine [Mass/Vol] 0.71 mg/dL 0.70-1.20 [facility] Serum glucose measurement (m ass/volume)Ordered By: Safia Ruelas on 01-07-2025 Glucose [Mass/Vol] 139 mg/dL High 70-99 [facility] Serum or plasma calcium dayna urement (mass/volume)Ordered By: Safia Griderbonimelanie on 01-07-2025 Calcium [Mass/Vol] 8.5 mg/dL 7.6-11.0 [facility] Serum or plasma urea nitroge n measurement (mass/volume)Ordered By: Safia Griderbonimelanie on 01-07-2025 Urea nitrogen [Mass/Vol] 11 mg/dL 4-19 [facility] Sodium levelOrdered By: Leonides josé antonio Jessenia on 01-07-2025 Sodium [Moles/Vol] 139 mmol/L 133-145 [facility] White blood cell (WBC) count Ordered By: Safia Griderbonimelanie on 01-07-2025 WBC (Bld) [#/Vol] 8.0 10*3/uL 4.4-11.0 [facility] Absolute lymphocyte countOrd ered By: Leonidesdesireeskye Griderbonimelanie on 12-31-2024 Lymphocytes Auto (Unsp spec) [#/Vol] 2.27 10*3/uL 0.83-4.51 [facility] Anion gap in Serum or Plasma Ordered By: Safia Ruelas on 12-31-2024 Anion gap [Moles/Vol] 14 mmol/L 5-15 [facility] Automated lymphocyte count a s percentage of total leukocytesOrdered By: Safia Ruelas on 12-31-2024 Lymphocytes/100 WBC Auto (Unsp spec) 32.9 % 19-41 [facility] BUN/creatinine ratioOrdered By: Safia Ruelas on 12-31-2024 Urea nitrogen/Creatinine [Mass ratio] 15.0 mg/mg 10-20 [facility] Basophil percentageOrdered B y: Safia Ruelas on 12-31-2024 Basophils/100 WBC (Bld) 0.6 % 0-1 [facility] Carbon dioxide, total [Moles /volume] in Central venous bloodOrdered By: Safia Ruelas on 12-31-2024 CO2 [Moles/Vol] 22.1 mmol/L 21.0-32.0 [facility] Chloride assayOrdered By: Balbir Ruelas on 12-31-2024 Chloride [Moles/Vol] 103 mmol/L 98-108 [facility] Eosinophil percentageOrdered By: Safia Ruelas on 12-31-2024 Eosinophils/100 WBC (Bld) 3.2 % 0-5 [facility] Erythrocyte distribution wid th ratioOrdered By: Safia Ruelas on 12-31-2024 Erythrocyte distribution width (RBC) [Ratio] 14.6 % 11.6-14.6 [facility] Erythrocyte distribution wid th standard deviationOrdered By: Safia Ruelas on 12-31-2024 Erythrocyte distribution width (RBC) [Ratio] 48.9 fl High 35.1-43.9 [facility] Glomerular filtration rate ( GFR) estimation/1.73 sq m using serum, plasma, or whole bOrdered By: Safia Ruelas on 12-31-2024 GFR/1.73 sq M.predicted among non-blacks MDRD (S/P/Bld) [Vol rate/Area] 88 mL/min/{1.73_m2} >60 [facility] Hematocrit Auto (Bld) [Volum e fraction]Ordered By: Safia Ruelas on 12-31-2024 Hematocrit (Bld) [Volume fraction] 36.8 % Low 37-47 [facility] Hemoglobin A1c percentageOrd ered By: Safia Ruelas on 12-31-2024 HbA1c (Bld) [Mass fraction] 6.5 % High <5.7 [facility] Hemoglobin measurementOrdere d By: Safia Ruelas on 12-31-2024 Hemoglobin (Bld) [Mass/Vol] 11.8 g/dL Low 12.0-15.0 [facility] Immature granulocytes/100 WB C Auto (Bld)Ordered By: Balbirjean mariejosé antonio Cheobonimelanie on 12-31-2024 Immature granulocytes/100 WBC (Bld) 0.300 % 0.0-0.9 [facility] MCV (mean corpuscular volume ) determinationOrdered By: Balbirjean mariejosé antonio Cheobonimelanie on 12-31-2024 MCV (RBC) [Entitic vol] 91.3 fL 81-99 [facility] Mean corpuscular hemoglobin (MCH) determinationOrdered By: Balbirjean mariejosé antonio Ruelas on 12-31-2024 MCH (RBC) [Entitic mass] 29.3 pg 27.0-32.0 [facility] Monocyte percentageOrdered B y: Safia Ruelas on 12-31-2024 Monocytes/100 WBC (Bld) 9.4 % 0-10 [facility] Neutrophil percentageOrdered By: Safia Ruelas on 12-31-2024 Neutrophils/100 WBC (Bld) 53.6 % 47-70 [facility] Platelet countOrdered By: Balbir Ruelas on 12-31-2024 Platelets (Bld) [#/Vol] 232 10*3/uL 150-450 [facility] Potassium measurement (mass/ volume)Ordered By: Safia Ruelas on 12-31-2024 Potassium (Unsp spec) [Mass/Vol] 3.5 mmol/L 3.3-5.1 [facility] RBC Auto (Bld) [#/Vol]Ordere d By: Safia Ruelas on 12-31-2024 RBC (Bld) [#/Vol] 4.03 10*6/uL Low 4.2-5.4 [facility] Serum creatinine measurement (mass/volume)Ordered By: Safia Ruelas on 12-31-2024 Creatinine [Mass/Vol] 0.70 mg/dL 0.70-1.20 [facility] Serum glucose measurement (m ass/volume)Ordered By: Safia Ruelas on 12-31-2024 Glucose [Mass/Vol] 142 mg/dL High 70-99 [facility] Serum or plasma calcium dayna urement (mass/volume)Ordered By: Safia Ruelas on 12-31-2024 Calcium [Mass/Vol] 8.4 mg/dL 7.6-11.0 [facility] Serum or plasma urea nitroge n measurement (mass/volume)Ordered By: Safia Ruelas on 12-31-2024 Urea nitrogen [Mass/Vol] 10 mg/dL 4-19 [facility] Sodium levelOrdered By: Leonides jiménezradha Jessenia on 12-31-2024 Sodium [Moles/Vol] 139 mmol/L 133-145 [facility] White blood cell (WBC) count Ordered By: Safia Ruelas on 12-31-2024 WBC (Bld) [#/Vol] 6.9 10*3/uL 4.4-11.0 [facility] Absolute lymphocyte countOrd ered By: Safia Ruelas on 12-24-2024 Lymphocytes Auto (Unsp spec) [#/Vol] 2.54 10*3/uL 0.83-4.51 [facility] Anion gap in Serum or Plasma Ordered By: Safia Ruelas on 12-24-2024 Anion gap [Moles/Vol] 14 mmol/L 5-15 [facility] Automated lymphocyte count a s percentage of total leukocytesOrdered By: Safia Ruelas on 12-24-2024 Lymphocytes/100 WBC Auto (Unsp spec) 28.0 % - [facility] BUN/creatinine ratioOrdered By: Safia Ruelas on 12-24-2024 Urea nitrogen/Creatinine [Mass ratio] 18.4 mg/mg 10-20 [facility] Basophil percentageOrdered B y: Safia Ruelas on 12-24-2024 Basophils/100 WBC (Bld) 0.8 % 0-1 [facility] Carbon dioxide, total [Moles /volume] in Central venous bloodOrdered By: Safia Ruelas on 12-24-2024 CO2 [Moles/Vol] 22.1 mmol/L 21.0-32.0 [facility] Chloride assayOrdered By: Balbir jean mariejosé antonio Ruelas on 12-24-2024 Chloride [Moles/Vol] 101 mmol/L 98-108 [facility] Eosinophil percentageOrdered By: jean mariemontereyskye Ruelas on 12-24-2024 Eosinophils/100 WBC (Bld) 2.6 % 0-5 [facility] Erythrocyte distribution wid th ratioOrdered By: jean mariemontereyskye Ruelas on 12-24-2024 Erythrocyte distribution width (RBC) [Ratio] 14.4 % 11.6-14.6 [facility] Erythrocyte distribution wid th standard deviationOrdered By: jean mariemontereyskye Ruelas on 12-24-2024 Erythrocyte distribution width (RBC) [Ratio] 48.8 fl High 35.1-43.9 [facility] Glomerular filtration rate ( GFR) estimation/1.73 sq m using serum, plasma, or whole bOrdered By: Safia Ruelas on 12-24-2024 GFR/1.73 sq M.predicted among non-blacks MDRD (S/P/Bld) [Vol rate/Area] 83 mL/min/{1.73_m2} >60 [facility] Hematocrit Auto (Bld) [Volum e fraction]Ordered By: Safia Ruelas on 12-24-2024 Hematocrit (Bld) [Volume fraction] 37.9 % 37-47 [facility] Hemoglobin measurementOrdere d By: Safia Ruelas on 12-24-2024 Hemoglobin (Bld) [Mass/Vol] 12.2 g/dL 12.0-15.0 [facility] Immature granulocytes/100 WB C Auto (Bld)Ordered By: Safia Ruelas on 12-24-2024 Immature granulocytes/100 WBC (Bld) 0.400 % 0.0-0.9 [facility] MCV (mean corpuscular volume ) determinationOrdered By: Safia Ruelas on 12-24-2024 MCV (RBC) [Entitic vol] 92.2 fL 81-99 [facility] Mean corpuscular hemoglobin (MCH) determinationOrdered By: Balbirjean mariejosé antonio Cheobonimelanie on 12-24-2024 MCH (RBC) [Entitic mass] 29.7 pg 27.0-32.0 [facility] Monocyte percentageOrdered B y: Balbirsherry Ruelas on 12-24-2024 Monocytes/100 WBC (Bld) 8.7 % 0-10 [facility] Neutrophil percentageOrdered By: Balbirsherry Griderbonimelanie on 12-24-2024 Neutrophils/100 WBC (Bld) 59.5 % 47-70 [facility] Platelet countOrdered By: Balbir randallskye Ruelas on 12-24-2024 Platelets (Bld) [#/Vol] 256 10*3/uL 150-450 [facility] Potassium measurement (mass/ volume)Ordered By: Safia Ruelas on 12-24-2024 Potassium (Unsp spec) [Mass/Vol] 3.4 mmol/L 3.3-5.1 [facility] RBC Auto (Bld) [#/Vol]Ordere d By: Leonidesdesireeskye Ruelas on 12-24-2024 RBC (Bld) [#/Vol] 4.11 10*6/uL Low 4.2-5.4 [facility] Serum creatinine measurement (mass/volume)Ordered By: Safia Ruelas on 12-24-2024 Creatinine [Mass/Vol] 0.73 mg/dL 0.70-1.20 [facility] Serum glucose measurement (m ass/volume)Ordered By: Safia Ruelas on 12-24-2024 Glucose [Mass/Vol] 142 mg/dL High 70-99 [facility] Serum or plasma calcium dayna urement (mass/volume)Ordered By: Safia Ruelas on 12-24-2024 Calcium [Mass/Vol] 9.1 mg/dL 7.6-11.0 [facility] Serum or plasma urea nitroge n measurement (mass/volume)Ordered By: Safia Ruelas on 12-24-2024 Urea nitrogen [Mass/Vol] 13 mg/dL 4-19 [facility] Sodium levelOrdered By: Leonides chou Cheobonimelanie on 12-24-2024 Sodium [Moles/Vol] 137 mmol/L 133-145 [facility] White blood cell (WBC) count Ordered By: Safia Ruelas on 12-24-2024 WBC (Bld) [#/Vol] 9.1 10*3/uL 4.4-11.0 [facility] Absolute lymphocyte countOrd ered By: Safia Ruelas on 12-17-2024 Lymphocytes Auto (Unsp spec) [#/Vol] 2.94 10*3/uL 0.83-4.51 [facility] Anion gap in Serum or Plasma Ordered By: Safia Ruelas on 12-17-2024 Anion gap [Moles/Vol] 15 mmol/L 5-15 [facility] Automated lymphocyte count a s percentage of total leukocytesOrdered By: Safia Ruelas on 12-17-2024 Lymphocytes/100 WBC Auto (Unsp spec) 30.5 % 19-41 [facility] BUN/creatinine ratioOrdered By: Safia Ruelas on 12-17-2024 Urea nitrogen/Creatinine [Mass ratio] 23.4 mg/mg High 10-20 [facility] Basophil percentageOrdered B y: Safia Ruelas on 12-17-2024 Basophils/100 WBC (Bld) 0.7 % 0-1 [facility] Carbon dioxide, total [Moles /volume] in Central venous bloodOrdered By: Safia Ruelas on 12-17-2024 CO2 [Moles/Vol] 22.1 mmol/L 21.0-32.0 [facility] Chloride assayOrdered By: Balbir Ruelas on 12-17-2024 Chloride [Moles/Vol] 102 mmol/L 98-108 [facility] Eosinophil percentageOrdered By: Safia Ruelas on 12-17-2024 Eosinophils/100 WBC (Bld) 2.3 % 0-5 [facility] Erythrocyte distribution wid th ratioOrdered By: Safia Ruelas on 12-17-2024 Erythrocyte distribution width (RBC) [Ratio] 14.1 % 11.6-14.6 [facility] Erythrocyte distribution wid th standard deviationOrdered By: Safia Ruelas on 12-17-2024 Erythrocyte distribution width (RBC) [Ratio] 47.3 fl High 35.1-43.9 [facility] Glomerular filtration rate ( GFR) estimation/1.73 sq m using serum, plasma, or whole bOrdered By: Safia Ruelas on 12-17-2024 GFR/1.73 sq M.predicted among non-blacks MDRD (S/P/Bld) [Vol rate/Area] 77 mL/min/{1.73_m2} >60 [facility] Hematocrit Auto (Bld) [Volum e fraction]Ordered By: Safia Ruleas on 12-17-2024 Hematocrit (Bld) [Volume fraction] 40.2 % 37-47 [facility] Hemoglobin measurementOrdere d By: Safia Ruelas on 12-17-2024 Hemoglobin (Bld) [Mass/Vol] 12.7 g/dL 12.0-15.0 [facility] Immature granulocytes/100 WB C Auto (Bld)Ordered By: Safia Ruelas on 12-17-2024 Immature granulocytes/100 WBC (Bld) 0.400 % 0.0-0.9 [facility] MCV (mean corpuscular volume ) determinationOrdered By: Safia Ruelas on 12-17-2024 MCV (RBC) [Entitic vol] 92.2 fL 81-99 [facility] Mean corpuscular hemoglobin (MCH) determinationOrdered By: Safia Ruelas on 12-17-2024 MCH (RBC) [Entitic mass] 29.1 pg 27.0-32.0 [facility] Monocyte percentageOrdered B y: Safia Ruelas on 12-17-2024 Monocytes/100 WBC (Bld) 8.6 % 0-10 [facility] Neutrophil percentageOrdered By: Safia Ruelas on 12-17-2024 Neutrophils/100 WBC (Bld) 57.5 % 47-70 [facility] Platelet countOrdered By: Balbir Griderghe on 12-17-2024 Platelets (Bld) [#/Vol] 287 10*3/uL 150-450 [facility] Potassium measurement (mass/ volume)Ordered By: Leonidesdesireeskye Griderbonimelanie on 12-17-2024 Potassium (Unsp spec) [Mass/Vol] 3.5 mmol/L 3.3-5.1 [facility] RBC Auto (Bld) [#/Vol]Ordere d By: Leonidesdesireeskye Ruelas on 12-17-2024 RBC (Bld) [#/Vol] 4.36 10*6/uL 4.2-5.4 [facility] Serum creatinine measurement (mass/volume)Ordered By: Safia Ruelas on 12-17-2024 Creatinine [Mass/Vol] 0.78 mg/dL 0.70-1.20 [facility] Serum glucose measurement (m ass/volume)Ordered By: Safia Ruelas on 12-17-2024 Glucose [Mass/Vol] 125 mg/dL High 70-99 [facility] Serum or plasma calcium dayna urement (mass/volume)Ordered By: Safia Ruelas on 12-17-2024 Calcium [Mass/Vol] 9.2 mg/dL 7.6-11.0 [facility] Serum or plasma urea nitroge n measurement (mass/volume)Ordered By: Safia Ruelas on 12-17-2024 Urea nitrogen [Mass/Vol] 18 mg/dL 4-19 [facility] Sodium levelOrdered By: eLonides josé antonio Jessenia on 12-17-2024 Sodium [Moles/Vol] 139 mmol/L 133-145 [facility] White blood cell (WBC) count Ordered By: Safia Ruelas on 12-17-2024 WBC (Bld) [#/Vol] 9.6 10*3/uL 4.4-11.0 [facility] Absolute lymphocyte countOrd ered By: Leonidesdesireeskye Ruelas on 12-10-2024 Lymphocytes Auto (Unsp spec) [#/Vol] 2.59 10*3/uL 0.83-4.51 [facility] Anion gap in Serum or Plasma Ordered By: Safia Ruelas on 12-10-2024 Anion gap [Moles/Vol] 15 mmol/L 5-15 [facility] Automated lymphocyte count a s percentage of total leukocytesOrdered By: Safia Ruelas on 12-10-2024 Lymphocytes/100 WBC Auto (Unsp spec) 30.2 % 19-41 [facility] BUN/creatinine ratioOrdered By: Safia Ruelas on 12-10-2024 Urea nitrogen/Creatinine [Mass ratio] 25.6 mg/mg High 10-20 [facility] Basophil percentageOrdered B y: Safia Ruelas on 12-10-2024 Basophils/100 WBC (Bld) 0.9 % 0-1 [facility] Carbon dioxide, total [Moles /volume] in Central venous bloodOrdered By: Safia Ruelas on 12-10-2024 CO2 [Moles/Vol] 21.7 mmol/L 21.0-32.0 [facility] Chloride assayOrdered By: Balbir Ruelas on 12-10-2024 Chloride [Moles/Vol] 101 mmol/L 98-108 [facility] Eosinophil percentageOrdered By: Safia Ruelas on 12-10-2024 Eosinophils/100 WBC (Bld) 1.9 % 0-5 [facility] Erythrocyte distribution wid th ratioOrdered By: aSfia Ruelas on 12-10-2024 Erythrocyte distribution width (RBC) [Ratio] 13.7 % 11.6-14.6 [facility] Erythrocyte distribution wid th standard deviationOrdered By: Safia Ruelas on 12-10-2024 Erythrocyte distribution width (RBC) [Ratio] 46.8 fl High 35.1-43.9 [facility] Glomerular filtration rate ( GFR) estimation/1.73 sq m using serum, plasma, or whole bOrdered By: Safia Ruelas on 12-10-2024 GFR/1.73 sq M.predicted among non-blacks MDRD (S/P/Bld) [Vol rate/Area] 72 mL/min/{1.73_m2} >60 [facility] Hematocrit Auto (Bld) [Volum e fraction]Ordered By: Safia Ruelas on 12-10-2024 Hematocrit (Bld) [Volume fraction] 38.8 % 37-47 [facility] Hemoglobin measurementOrdere d By: Safia Ruelas on 12-10-2024 Hemoglobin (Bld) [Mass/Vol] 12.3 g/dL 12.0-15.0 [facility] Immature granulocytes/100 WB C Auto (Bld)Ordered By: Safia Ruelas on 12-10-2024 Immature granulocytes/100 WBC (Bld) 0.500 % 0.0-0.9 [facility] MCV (mean corpuscular volume ) determinationOrdered By: Safia Cheobonimelanie on 12-10-2024 MCV (RBC) [Entitic vol] 93.3 fL 81-99 [facility] Mean corpuscular hemoglobin (MCH) determinationOrdered By: Leonidesmontereyskye Ruelas on 12-10-2024 MCH (RBC) [Entitic mass] 29.6 pg 27.0-32.0 [facility] Monocyte percentageOrdered B y: Safia Ruelas on 12-10-2024 Monocytes/100 WBC (Bld) 8.2 % 0-10 [facility] Neutrophil percentageOrdered By: sherry Ruelas on 12-10-2024 Neutrophils/100 WBC (Bld) 58.3 % 47-70 [facility] Platelet countOrdered By: sherry Ruelas on 12-10-2024 Platelets (Bld) [#/Vol] 247 10*3/uL 150-450 [facility] Potassium measurement (mass/ volume)Ordered By: Safia Westonmelanie on 12-10-2024 Potassium (Unsp spec) [Mass/Vol] 3.8 mmol/L 3.3-5.1 [facility] RBC Auto (Bld) [#/Vol]Ordere d By: Safia Ruelas on 12-10-2024 RBC (Bld) [#/Vol] 4.16 10*6/uL Low 4.2-5.4 [facility] Serum creatinine measurement (mass/volume)Ordered By: Safia Cheobonimelanie on 12-10-2024 Creatinine [Mass/Vol] 0.82 mg/dL 0.70-1.20 [facility] Serum glucose measurement (m ass/volume)Ordered By: Balbirjean mariedesireeskye Griderbonimelanie on 12-10-2024 Glucose [Mass/Vol] 149 mg/dL High 70-99 [facility] Serum or plasma calcium dayna urement (mass/volume)Ordered By: Balbirjean mariedesireeskye Griderbonimelanie on 12-10-2024 Calcium [Mass/Vol] 9.1 mg/dL 7.6-11.0 [facility] Serum or plasma urea nitroge n measurement (mass/volume)Ordered By: Safia Griderbonimelanie on 12-10-2024 Urea nitrogen [Mass/Vol] 21 mg/dL High 4-19 [facility] Sodium levelOrdered By: Leonides josé antonio Cheobonimelanie on 12-10-2024 Sodium [Moles/Vol] 137 mmol/L 133-145 [facility] White blood cell (WBC) count Ordered By: Leonidesdesireeskye Griderbonimelanie on 12-10-2024 WBC (Bld) [#/Vol] 8.6 10*3/uL 4.4-11.0 [facility] Absolute lymphocyte countOrd ered By: Balbirjean mariejosé antonio Cheoquyen on 12-03-2024 Lymphocytes Auto (Unsp spec) [#/Vol] 2.81 10*3/uL 0.83-4.51 [facility] Anion gap in Serum or Plasma Ordered By: Leonidesdesireeskye Griderbonimelanie on 12-03-2024 Anion gap [Moles/Vol] 14 mmol/L 5-15 [facility] Automated lymphocyte count a s percentage of total leukocytesOrdered By: Safia Griderbonimelanie on 12-03-2024 Lymphocytes/100 WBC Auto (Unsp spec) 28.3 % 19-41 [facility] BUN/creatinine ratioOrdered By: Balbirjean mariedesireeskye Griderbonimelanie on 12-03-2024 Urea nitrogen/Creatinine [Mass ratio] 28.4 mg/mg High 10-20 [facility] Basophil percentageOrdered B y: Leonidesdesireeskye Griderbonimelanie on 12-03-2024 Basophils/100 WBC (Bld) 0.6 % 0-1 [facility] Carbon dioxide, total [Moles /volume] in Central venous bloodOrdered By: Safia Ruelas on 12-03-2024 CO2 [Moles/Vol] 23.3 mmol/L 21.0-32.0 [facility] Chloride assayOrdered By: Balbir Ruelas on 12-03-2024 Chloride [Moles/Vol] 102 mmol/L 98-108 [facility] Eosinophil percentageOrdered By: Safia Ruelas on 12-03-2024 Eosinophils/100 WBC (Bld) 1.5 % 0-5 [facility] Erythrocyte distribution wid th ratioOrdered By: sherry Ruelas on 12-03-2024 Erythrocyte distribution width (RBC) [Ratio] 14.1 % 11.6-14.6 [facility] Erythrocyte distribution wid th standard deviationOrdered By: Safia Ruelas on 12-03-2024 Erythrocyte distribution width (RBC) [Ratio] 47.9 fl High 35.1-43.9 [facility] Glomerular filtration rate ( GFR) estimation/1.73 sq m using serum, plasma, or whole bOrdered By: Safia Ruelas on 12-03-2024 GFR/1.73 sq M.predicted among non-blacks MDRD (S/P/Bld) [Vol rate/Area] 65 mL/min/{1.73_m2} >60 [facility] Hematocrit Auto (Bld) [Volum e fraction]Ordered By: Safia Ruelas 12-03-2024 Hematocrit (Bld) [Volume fraction] 40.0 % 37-47 [facility] Hemoglobin measurementOrdere d By: Safia Ruelas on 12-03-2024 Hemoglobin (Bld) [Mass/Vol] 12.9 g/dL 12.0-15.0 [facility] Immature granulocytes/100 WB C Auto (Bld)Ordered By: Safia Ruelas on 12-03-2024 Immature granulocytes/100 WBC (Bld) 0.300 % 0.0-0.9 [facility] MCV (mean corpuscular volume ) determinationOrdered By: Safia Ruelas on 12-03-2024 MCV (RBC) [Entitic vol] 91.3 fL 81-99 [facility] Mean corpuscular hemoglobin (MCH) determinationOrdered By: Balbirsherry Griderbonimelanie on 12-03-2024 MCH (RBC) [Entitic mass] 29.5 pg 27.0-32.0 [facility] Monocyte percentageOrdered B y: Safia Cheoquyen on 12-03-2024 Monocytes/100 WBC (Bld) 9.6 % 0-10 [facility] Neutrophil percentageOrdered By: Safia Cheoquyen on 12-03-2024 Neutrophils/100 WBC (Bld) 59.7 % 47-70 [facility] Platelet countOrdered By: Balbir sherry Cheobonimelanie on 12-03-2024 Platelets (Bld) [#/Vol] 280 10*3/uL 150-450 [facility] Potassium measurement (mass/ volume)Ordered By: Balbirjean mariedesireeskye Griderbonimelanie on 12-03-2024 Potassium (Unsp spec) [Mass/Vol] 4.0 mmol/L 3.3-5.1 [facility] RBC Auto (Bld) [#/Vol]Ordere d By: Safia Cheoquyen on 12-03-2024 RBC (Bld) [#/Vol] 4.38 10*6/uL 4.2-5.4 [facility] Serum creatinine measurement (mass/volume)Ordered By: Safia Ruelas on 12-03-2024 Creatinine [Mass/Vol] 0.89 mg/dL 0.70-1.20 [facility] Serum glucose measurement (m ass/volume)Ordered By: Safia Ruelas on 12-03-2024 Glucose [Mass/Vol] 77 mg/dL 70-99 [facility] Serum or plasma calcium dayna urement (mass/volume)Ordered By: Safia Griderbonimelanie on 12-03-2024 Calcium [Mass/Vol] 9.6 mg/dL 7.6-11.0 [facility] Serum or plasma urea nitroge n measurement (mass/volume)Ordered By: Balbirsherry Ruelas on 12-03-2024 Urea nitrogen [Mass/Vol] 25 mg/dL High 4-19 [facility] Sodium levelOrdered By: Leonides josé antonio Jessenia on 12-03-2024 Sodium [Moles/Vol] 139 mmol/L 133-145 [facility] TSH DL <= 0.005 mIU/L QnOrde red By: Safia Ruelas on 12-03-2024 TSH Qn 3.500 uIU/mL 0.300-4.200 [facility] White blood cell (WBC) count Ordered By: Leonidesdesireeskye Griderbonimelanie on 12-03-2024 WBC (Bld) [#/Vol] 9.9 10*3/uL 4.4-11.0 [facility] Absolute lymphocyte countOrd ered By: Safia Griderbonimelanie on 11-26-2024 Lymphocytes Auto (Unsp spec) [#/Vol] 2.99 10*3/uL 0.83-4.51 [facility] Absolute neutrophil countOrd ered By: Safia Griderbonimelanie on 11-26-2024 Neutrophils (Bld) [#/Vol] 4.2 10*3/uL 2.0-7.7 [facility] Anion gap in Serum or Plasma Ordered By: Safia Griderbonimelanie on 11-26-2024 Anion gap [Moles/Vol] 13 mmol/L 5-15 [facility] Automated lymphocyte count a s percentage of total leukocytesOrdered By: Leonidesdesireeskye Griderbonimelanie on 11-26-2024 Lymphocytes/100 WBC Auto (Unsp spec) 37.1 % 19-41 [facility] BUN/creatinine ratioOrdered By: Safia Griderbonimelanie on 11-26-2024 Urea nitrogen/Creatinine [Mass ratio] 24.3 mg/mg High 10-20 [facility] Basophil percentageOrdered B y: Bandarskye Griderbonimelaine on 11-26-2024 Basophils/100 WBC (Bld) 0.7 % 0-1 [facility] Carbon dioxide, total [Moles /volume] in Central venous bloodOrdered By: Safia Griderbonimelanie on 11-26-2024 CO2 [Moles/Vol] 27.1 mmol/L 21.0-32.0 [facility] Chloride assayOrdered By: Balbir jean mariejosé antonio Griderbonimelanie on 11-26-2024 Chloride [Moles/Vol] 101 mmol/L 98-108 [facility] Eosinophil percentageOrdered By: Safia Ruelas on 11-26-2024 Eosinophils/100 WBC (Bld) 1.9 % 0-5 [facility] Erythrocyte distribution wid th ratioOrdered By: Safia Ruelas on 11-26-2024 Erythrocyte distribution width (RBC) [Ratio] 14.2 % 11.6-14.6 [facility] Erythrocyte distribution wid th standard deviationOrdered By: Safia Ruelas on 11-26-2024 Erythrocyte distribution width (RBC) [Ratio] 48.0 fl High 35.1-43.9 [facility] Glomerular filtration rate ( GFR) estimation/1.73 sq m using serum, plasma, or whole bOrdered By: Safia Ruelas on 11-26-2024 GFR/1.73 sq M.predicted among non-blacks MDRD (S/P/Bld) [Vol rate/Area] 63 mL/min/{1.73_m2} >60 [facility] Comment on above: mL/min/1.73m2 CKD-EP I Creatinine Equation (2020) Hematocrit Auto (Bld) [Volum e fraction]Ordered By: Safia Ruelas 11-26-2024 Hematocrit (Bld) [Volume fraction] 42.7 % 37-47 [facility] Hemoglobin measurementOrdere d By: Safia Ruelas 11-26-2024 Hemoglobin (Bld) [Mass/Vol] 13.6 g/dL 12.0-15.0 [facility] Immature granulocytes/100 WB C Auto (Bld)Ordered By: Safia Ruelas 11-26-2024 Immature granulocytes/100 WBC (Bld) 0.500 % 0.0-0.9 [facility] Comment on above: IG% - Immature Granu locytes (promyelocytes, myelocytes and metamyelocytes) > 1% indicates that a LEFT SHIFT is Present. MCV (mean corpuscular volume ) determinationOrdered By: Safia Ruelas 11-26-2024 MCV (RBC) [Entitic vol] 92.0 fL 81-99 [facility] Mean corpuscular hemoglobin (MCH) determinationOrdered By: Safia Ruelas 11-26-2024 MCH (RBC) [Entitic mass] 29.3 pg 27.0-32.0 [facility] Mean corpuscular hemoglobin concentration (MCHC) determinationOrdered By: Safia Ruelas on 11-26-2024 MCHC (RBC) [Mass/Vol] 31.9 g/dL Low 32-36 [facility] Mean platelet volume determi nationOrdered By: Safia Ruelas on 11-26-2024 Platelet mean volume (Bld) [Entitic vol] 11.5 fL 6.2-12.0 [facility] Monocyte percentageOrdered B y: Safia Reulas on 11-26-2024 Monocytes/100 WBC (Bld) 7.7 % 0-10 [facility] Neutrophil percentageOrdered By: Safia Ruelas on 11-26-2024 Neutrophils/100 WBC (Bld) 52.1 % 47-70 [facility] Nucleated red blood cell per centageOrdered By: Safia Ruelas on 11-26-2024 Nucleated RBC/100 WBC (Bld) [Ratio] 0 % 0-5 [facility] Platelet countOrdered By: Balbir Ruelas on 11-26-2024 Platelets (Bld) [#/Vol] 283 10*3/uL 150-450 [facility] Potassium measurement (mass/ volume)Ordered By: Balbirjean mariedesireeskye Griderbonimelanie on 11-26-2024 Potassium (Unsp spec) [Mass/Vol] 3.8 mmol/L 3.3-5.1 [facility] RBC Auto (Bld) [#/Vol]Ordere d By: Safia Ruelas on 11-26-2024 RBC (Bld) [#/Vol] 4.64 10*6/uL 4.2-5.4 [facility] Serum creatinine measurement (mass/volume)Ordered By: Balbirjean mariedesireeskye Griderbonimelanie on 11-26-2024 Creatinine [Mass/Vol] 0.92 mg/dL 0.70-1.20 [facility] Serum glucose measurement (m ass/volume)Ordered By: Balbirjean mariedesireeskye Griderbonimelanie on 11-26-2024 Glucose [Mass/Vol] 97 mg/dL 70-99 [facility] Serum or plasma calcium dayna urement (mass/volume)Ordered By: Balbirjean mariejosé antonio Cheobonimelanie on 11-26-2024 Calcium [Mass/Vol] 10.0 mg/dL 7.6-11.0 [facility] Serum or plasma urea nitroge n measurement (mass/volume)Ordered By: Balbirjean mariejosé antonio Cheobonimelnaie on 11-26-2024 Urea nitrogen [Mass/Vol] 22 mg/dL High 4-19 [facility] Sodium levelOrdered By: Leonides chou Cheobonimelanie on 11-26-2024 Sodium [Moles/Vol] 140 mmol/L 133-145 [facility] White blood cell (WBC) count Ordered By: Safia Cheobonimelanie on 11-26-2024 WBC (Bld) [#/Vol] 8.1 10*3/uL 4.4-11.0 [facility] Clostridium difficile detect ion by polymerase chain reactionOrdered By: Safia Ruelas on 11-25-2024 C. difficile DNA CHUCKY+probe Ql (Unsp spec) [facility] Absolute lymphocyte countOrd ered By: Balbirjean mariedesireeskye Griderbonimelanie on 11-19-2024 Lymphocytes Auto (Unsp spec) [#/Vol] 2.71 10*3/uL 0.83-4.51 [facility] Absolute neutrophil countOrd ered By: Safia Ruelas on 11-19-2024 Neutrophils (Bld) [#/Vol] 5.2 10*3/uL 2.0-7.7 [facility] Anion gap in Serum or Plasma Ordered By: Balbirsherry Griderbonimelanie on 11-19-2024 Anion gap [Moles/Vol] 12 mmol/L 5-15 [facility] Automated lymphocyte count a s percentage of total leukocytesOrdered By: Balbirjean mariedesireeskye Griderbonimelanie on 11-19-2024 Lymphocytes/100 WBC Auto (Unsp spec) 30.4 % 19-41 [facility] BUN/creatinine ratioOrdered By: Balbirjean mariedesireeskye Griderbonimelanie on 11-19-2024 Urea nitrogen/Creatinine [Mass ratio] 25.0 mg/mg High 10-20 [facility] Basophil percentageOrdered B y: Efewjosé antonio Ruelas on 11-19-2024 Basophils/100 WBC (Bld) 0.6 % 0-1 [facility] Carbon dioxide, total [Moles /volume] in Central venous bloodOrdered By: Safia Ruelas on 11-19-2024 CO2 [Moles/Vol] 25.5 mmol/L 21.0-32.0 [facility] Chloride assayOrdered By: Balbir Ruelas on 11-19-2024 Chloride [Moles/Vol] 101 mmol/L 98-108 [facility] Eosinophil percentageOrdered By: Safia Ruelas on 11-19-2024 Eosinophils/100 WBC (Bld) 2.1 % 0-5 [facility] Erythrocyte distribution wid th ratioOrdered By: sherry Ruelas on 11-19-2024 Erythrocyte distribution width (RBC) [Ratio] 13.9 % 11.6-14.6 [facility] Erythrocyte distribution wid th standard deviationOrdered By: jean mariemontereyskye Ruelas on 11-19-2024 Erythrocyte distribution width (RBC) [Ratio] 46.6 fl High 35.1-43.9 [facility] Glomerular filtration rate ( GFR) estimation/1.73 sq m using serum, plasma, or whole bOrdered By: Safia Ruelas on 11-19-2024 GFR/1.73 sq M.predicted among non-blacks MDRD (S/P/Bld) [Vol rate/Area] 66 mL/min/{1.73_m2} >60 [facility] Comment on above: mL/min/1.73m2 CKD-EP I Creatinine Equation (2020) Hematocrit Auto (Bld) [Volum e fraction]Ordered By: Safia Ruelas on 11-19-2024 Hematocrit (Bld) [Volume fraction] 39.2 % 37-47 [facility] Hemoglobin measurementOrdere d By: Safia Ruelas on 11-19-2024 Hemoglobin (Bld) [Mass/Vol] 12.7 g/dL 12.0-15.0 [facility] Immature granulocytes/100 WB C Auto (Bld)Ordered By: Safia Ruelas on 11-19-2024 Immature granulocytes/100 WBC (Bld) 0.300 % 0.0-0.9 [facility] Comment on above: IG% - Immature Granu locytes (promyelocytes, myelocytes and metamyelocytes) > 1% indicates that a LEFT SHIFT is Present. MCV (mean corpuscular volume ) determinationOrdered By: Safia Ruelas on 11-19-2024 MCV (RBC) [Entitic vol] 91.4 fL 81-99 [facility] Mean corpuscular hemoglobin (MCH) determinationOrdered By: Safia Ruelas on 11-19-2024 MCH (RBC) [Entitic mass] 29.6 pg 27.0-32.0 [facility] Mean corpuscular hemoglobin concentration (MCHC) determinationOrdered By: Safia Ruelas on 11-19-2024 MCHC (RBC) [Mass/Vol] 32.4 g/dL 32-36 [facility] Mean platelet volume determi nationOrdered By: Safia Ruelas on 11-19-2024 Platelet mean volume (Bld) [Entitic vol] 11.5 fL 6.2-12.0 [facility] Monocyte percentageOrdered B y: Safia Ruelas on 11-19-2024 Monocytes/100 WBC (Bld) 7.8 % 0-10 [facility] Neutrophil percentageOrdered By: jean mariemontereyskye Ruelas on 11-19-2024 Neutrophils/100 WBC (Bld) 58.8 % 47-70 [facility] Nucleated red blood cell per centageOrdered By: Safia Ruelas on 11-19-2024 Nucleated RBC/100 WBC (Bld) [Ratio] 0 % 0-5 [facility] Platelet countOrdered By: Balbir Ruelas on 11-19-2024 Platelets (Bld) [#/Vol] 300 10*3/uL 150-450 [facility] Potassium measurement (mass/ volume)Ordered By: Safia Ruelas on 11-19-2024 Potassium (Unsp spec) [Mass/Vol] 3.8 mmol/L 3.3-5.1 [facility] RBC Auto (Bld) [#/Vol]Ordere d By: Safia Ruelas on 11-19-2024 RBC (Bld) [#/Vol] 4.29 10*6/uL 4.2-5.4 [facility] Serum creatinine measurement (mass/volume)Ordered By: Bandarskye Griderbonimelanie on 11-19-2024 Creatinine [Mass/Vol] 0.88 mg/dL 0.70-1.20 [facility] Serum glucose measurement (m ass/volume)Ordered By: Safia Griderbonimelanie on 11-19-2024 Glucose [Mass/Vol] 136 mg/dL High 70-99 [facility] Serum or plasma calcium dayna urement (mass/volume)Ordered By: Safia Griderbonimelanie on 11-19-2024 Calcium [Mass/Vol] 9.6 mg/dL 7.6-11.0 [facility] Serum or plasma urea nitroge n measurement (mass/volume)Ordered By: Safia Griderbonimelanie on 11-19-2024 Urea nitrogen [Mass/Vol] 22 mg/dL High 4-19 [facility] Sodium levelOrdered By: Leonides chou Cheobonimelanie on 11-19-2024 Sodium [Moles/Vol] 139 mmol/L 133-145 [facility] White blood cell (WBC) count Ordered By: Balbirjean mariedesireeskye Griderbonimelanie on 11-19-2024 WBC (Bld) [#/Vol] 8.9 10*3/uL 4.4-11.0 [facility] Absolute lymphocyte countOrd ered By: Safia Ruelas on 11-12-2024 Lymphocytes Auto (Unsp spec) [#/Vol] 2.49 10*3/uL 0.83-4.51 [facility] Absolute neutrophil countOrd ered By: Bandarskye Griderbonimelanie on 11-12-2024 Neutrophils (Bld) [#/Vol] 4.2 10*3/uL 2.0-7.7 [facility] Anion gap in Serum or Plasma Ordered By: Safia Westonmelanie on 11-12-2024 Anion gap [Moles/Vol] 12 mmol/L 5-15 [facility] Automated lymphocyte count a s percentage of total leukocytesOrdered By: Safia Griderbonimelanie on 11-12-2024 Lymphocytes/100 WBC Auto (Unsp spec) 31.9 % 19-41 [facility] BUN/creatinine ratioOrdered By: Safia Ruelas on 11-12-2024 Urea nitrogen/Creatinine [Mass ratio] 28.1 mg/mg High 10-20 [facility] Basophil percentageOrdered B y: Safia Ruelas on 11-12-2024 Basophils/100 WBC (Bld) 0.6 % 0-1 [facility] Carbon dioxide, total [Moles /volume] in Central venous bloodOrdered By: Safia Ruelas on 11-12-2024 CO2 [Moles/Vol] 25.1 mmol/L 21.0-32.0 [facility] Chloride assayOrdered By: Balbir Ruelas on 11-12-2024 Chloride [Moles/Vol] 102 mmol/L 98-108 [facility] Eosinophil percentageOrdered By: Safia Ruelas on 11-12-2024 Eosinophils/100 WBC (Bld) 2.8 % 0-5 [facility] Erythrocyte distribution wid th ratioOrdered By: Safia Ruelas on 11-12-2024 Erythrocyte distribution width (RBC) [Ratio] 13.8 % 11.6-14.6 [facility] Erythrocyte distribution wid th standard deviationOrdered By: Safia Ruelas on 11-12-2024 Erythrocyte distribution width (RBC) [Ratio] 46.7 fl High 35.1-43.9 [facility] Glomerular filtration rate ( GFR) estimation/1.73 sq m using serum, plasma, or whole bOrdered By: Safia Ruelas on 11-12-2024 GFR/1.73 sq M.predicted among non-blacks MDRD (S/P/Bld) [Vol rate/Area] 70 mL/min/{1.73_m2} >60 [facility] Comment on above: mL/min/1.73m2 CKD-EP I Creatinine Equation (2020) Hematocrit Auto (Bld) [Volum e fraction]Ordered By: Safia Ruelas on 11-12-2024 Hematocrit (Bld) [Volume fraction] 40.6 % 37-47 [facility] Hemoglobin measurementOrdere d By: Safia Ruelas on 11-12-2024 Hemoglobin (Bld) [Mass/Vol] 13.2 g/dL 12.0-15.0 [facility] Immature granulocytes/100 WB C Auto (Bld)Ordered By: Safia Ruelas on 11-12-2024 Immature granulocytes/100 WBC (Bld) 0.400 % 0.0-0.9 [facility] Comment on above: IG% - Immature Granu locytes (promyelocytes, myelocytes and metamyelocytes) > 1% indicates that a LEFT SHIFT is Present. MCV (mean corpuscular volume ) determinationOrdered By: Safia Ruelas on 11-12-2024 MCV (RBC) [Entitic vol] 92.1 fL 81-99 [facility] Mean corpuscular hemoglobin (MCH) determinationOrdered By: jean mariemontereyskye Ruelas on 11-12-2024 MCH (RBC) [Entitic mass] 29.9 pg 27.0-32.0 [facility] Mean corpuscular hemoglobin concentration (MCHC) determinationOrdered By: sherry Ruelas on 11-12-2024 MCHC (RBC) [Mass/Vol] 32.5 g/dL 32-36 [facility] Mean platelet volume determi nationOrdered By: Safia Ruelas on 11-12-2024 Platelet mean volume (Bld) [Entitic vol] 11.7 fL 6.2-12.0 [facility] Monocyte percentageOrdered B y: Safia Ruelas on 11-12-2024 Monocytes/100 WBC (Bld) 10.0 % 0-10 [facility] Neutrophil percentageOrdered By: jean mariemontereyskye Ruelas on 11-12-2024 Neutrophils/100 WBC (Bld) 54.3 % 47-70 [facility] Nucleated red blood cell per centageOrdered By: jean mariemontereyskye Ruelas on 11-12-2024 Nucleated RBC/100 WBC (Bld) [Ratio] 0 % 0-5 [facility] Platelet countOrdered By: Balbir Ruelas on 11-12-2024 Platelets (Bld) [#/Vol] 304 10*3/uL 150-450 [facility] Potassium measurement (mass/ volume)Ordered By: Safia Ruelas on 11-12-2024 Potassium (Unsp spec) [Mass/Vol] 3.9 mmol/L 3.3-5.1 [facility] RBC Auto (Bld) [#/Vol]Ordere d By: Safia Ruelas on 11-12-2024 RBC (Bld) [#/Vol] 4.41 10*6/uL 4.2-5.4 [facility] Serum creatinine measurement (mass/volume)Ordered By: Safia Ruelas on 11-12-2024 Creatinine [Mass/Vol] 0.84 mg/dL 0.70-1.20 [facility] Serum glucose measurement (m ass/volume)Ordered By: Safia Ruelas on 11-12-2024 Glucose [Mass/Vol] 112 mg/dL High 70-99 [facility] Serum or plasma calcium dayna urement (mass/volume)Ordered By: Safia Ruelas on 11-12-2024 Calcium [Mass/Vol] 9.7 mg/dL 7.6-11.0 [facility] Serum or plasma urea nitroge n measurement (mass/volume)Ordered By: Safia Ruelas on 11-12-2024 Urea nitrogen [Mass/Vol] 24 mg/dL High 4-19 [facility] Sodium levelOrdered By: Leonides Ruelas on 11-12-2024 Sodium [Moles/Vol] 139 mmol/L 133-145 [facility] White blood cell (WBC) count Ordered By: Safia Ruelas on 11-12-2024 WBC (Bld) [#/Vol] 7.8 10*3/uL 4.4-11.0 [facility] Absolute lymphocyte countOrd ered By: Safia Ruelas on 11-05-2024 Lymphocytes Auto (Unsp spec) [#/Vol] 2.91 10*3/uL 0.83-4.51 [facility] Absolute neutrophil countOrd ered By: Safia Ruelas on 11-05-2024 Neutrophils (Bld) [#/Vol] 4.6 10*3/uL 2.0-7.7 [facility] Anion gap in Serum or Plasma Ordered By: Safia Ruelas on 11-05-2024 Anion gap [Moles/Vol] 13 mmol/L 5-15 [facility] Automated lymphocyte count a s percentage of total leukocytesOrdered By: Safia Ruelas on 11-05-2024 Lymphocytes/100 WBC Auto (Unsp spec) 33.7 % 19-41 [facility] BUN/creatinine ratioOrdered By: Safia Ruelas on 11-05-2024 Urea nitrogen/Creatinine [Mass ratio] 23.3 mg/mg High 10-20 [facility] Basophil percentageOrdered B y: Safia Ruelas on 11-05-2024 Basophils/100 WBC (Bld) 0.9 % 0-1 [facility] Carbon dioxide, total [Moles /volume] in Central venous bloodOrdered By: Safia Ruelas on 11-05-2024 CO2 [Moles/Vol] 24.2 mmol/L 21.0-32.0 [facility] Chloride assayOrdered By: Balbir Ruelas on 11-05-2024 Chloride [Moles/Vol] 102 mmol/L 98-108 [facility] Eosinophil percentageOrdered By: Safia Ruelas on 11-05-2024 Eosinophils/100 WBC (Bld) 2.7 % 0-5 [facility] Erythrocyte distribution wid th ratioOrdered By: Safia Ruelas on 11-05-2024 Erythrocyte distribution width (RBC) [Ratio] 13.9 % 11.6-14.6 [facility] Erythrocyte distribution wid th standard deviationOrdered By: Safia Ruelas on 11-05-2024 Erythrocyte distribution width (RBC) [Ratio] 47.1 fl High 35.1-43.9 [facility] Glomerular filtration rate ( GFR) estimation/1.73 sq m using serum, plasma, or whole bOrdered By: Safia Ruelas on 11-05-2024 GFR/1.73 sq M.predicted among non-blacks MDRD (S/P/Bld) [Vol rate/Area] 62 mL/min/{1.73_m2} >60 [facility] Comment on above: mL/min/1.73m2 CKD-EP I Creatinine Equation (2020) Hematocrit Auto (Bld) [Volum e fraction]Ordered By: Safia Ruelas on 11-05-2024 Hematocrit (Bld) [Volume fraction] 40.7 % 37-47 [facility] Hemoglobin measurementOrdere d By: Safia Ruelas on 11-05-2024 Hemoglobin (Bld) [Mass/Vol] 12.9 g/dL 12.0-15.0 [facility] Immature granulocytes/100 WB C Auto (Bld)Ordered By: Safia Ruelas on 11-05-2024 Immature granulocytes/100 WBC (Bld) 0.500 % 0.0-0.9 [facility] Comment on above: IG% - Immature Granu locytes (promyelocytes, myelocytes and metamyelocytes) > 1% indicates that a LEFT SHIFT is Present. MCV (mean corpuscular volume ) determinationOrdered By: Safia Ruelas on 11-05-2024 MCV (RBC) [Entitic vol] 92.9 fL 81-99 [facility] Mean corpuscular hemoglobin (MCH) determinationOrdered By: Safia Ruelas on 11-05-2024 MCH (RBC) [Entitic mass] 29.5 pg 27.0-32.0 [facility] Mean corpuscular hemoglobin concentration (MCHC) determinationOrdered By: Safia Ruelas on 11-05-2024 MCHC (RBC) [Mass/Vol] 31.7 g/dL Low 32-36 [facility] Mean platelet volume determi nationOrdered By: Safia Ruelas on 11-05-2024 Platelet mean volume (Bld) [Entitic vol] 11.2 fL 6.2-12.0 [facility] Monocyte percentageOrdered B y: Safia Ruelas on 11-05-2024 Monocytes/100 WBC (Bld) 8.6 % 0-10 [facility] Neutrophil percentageOrdered By: Safia Ruelas on 11-05-2024 Neutrophils/100 WBC (Bld) 53.6 % 47-70 [facility] Nucleated red blood cell per centageOrdered By: Safia Ruelas on 11-05-2024 Nucleated RBC/100 WBC (Bld) [Ratio] 0 % 0-5 [facility] Platelet countOrdered By: Balbir Ruelas on 11-05-2024 Platelets (Bld) [#/Vol] 318 10*3/uL 150-450 [facility] Potassium measurement (mass/ volume)Ordered By: Safia Ruelas on 11-05-2024 Potassium (Unsp spec) [Mass/Vol] 4.0 mmol/L 3.3-5.1 [facility] RBC Auto (Bld) [#/Vol]Ordere d By: Safia Ruelas on 11-05-2024 RBC (Bld) [#/Vol] 4.38 10*6/uL 4.2-5.4 [facility] Serum creatinine measurement (mass/volume)Ordered By: Safia Ruelas on 11-05-2024 Creatinine [Mass/Vol] 0.93 mg/dL 0.70-1.20 [facility] Serum glucose measurement (m ass/volume)Ordered By: Safia Ruelas on 11-05-2024 Glucose [Mass/Vol] 70 mg/dL 70-99 [facility] Serum or plasma calcium dayna urement (mass/volume)Ordered By: Safia Ruelas on 11-05-2024 Calcium [Mass/Vol] 9.5 mg/dL 7.6-11.0 [facility] Serum or plasma urea nitroge n measurement (mass/volume)Ordered By: Safia Ruelas on 11-05-2024 Urea nitrogen [Mass/Vol] 22 mg/dL High 4-19 [facility] Sodium levelOrdered By: Leonides jiménezradha Jessenia on 11-05-2024 Sodium [Moles/Vol] 139 mmol/L 133-145 [facility] White blood cell (WBC) count Ordered By: Safia Ruelas on 11-05-2024 WBC (Bld) [#/Vol] 8.6 10*3/uL 4.4-11.0 [facility] Absolute lymphocyte countOrd ered By: Safia Ruelas on 10-29-2024 Lymphocytes Auto (Unsp spec) [#/Vol] 2.69 10*3/uL 0.83-4.51 [facility] Absolute neutrophil countOrd ered By: Safia Griderbonimelanie on 10-29-2024 Neutrophils (Bld) [#/Vol] 4.5 10*3/uL 2.0-7.7 [facility] Anion gap in Serum or Plasma Ordered By: Safia Ruelas on 10-29-2024 Anion gap [Moles/Vol] 11 mmol/L 5-15 [facility] Automated lymphocyte count a s percentage of total leukocytesOrdered By: Safia Ruelas on 10-29-2024 Lymphocytes/100 WBC Auto (Unsp spec) 32.6 % 19-41 [facility] BUN/creatinine ratioOrdered By: Safia Ruelas on 10-29-2024 Urea nitrogen/Creatinine [Mass ratio] 25.2 mg/mg High 10-20 [facility] Basophil percentageOrdered B y: Safia Ruelas on 10-29-2024 Basophils/100 WBC (Bld) 0.7 % 0-1 [facility] Carbon dioxide, total [Moles /volume] in Central venous bloodOrdered By: Safia Ruelas on 10-29-2024 CO2 [Moles/Vol] 25.7 mmol/L 21.0-32.0 [facility] Chloride assayOrdered By: Balbir Ruelas on 10-29-2024 Chloride [Moles/Vol] 102 mmol/L 98-108 [facility] Eosinophil percentageOrdered By: Safia Ruelas on 10-29-2024 Eosinophils/100 WBC (Bld) 2.1 % 0-5 [facility] Erythrocyte distribution wid th ratioOrdered By: Safia Ruelas on 10-29-2024 Erythrocyte distribution width (RBC) [Ratio] 13.6 % 11.6-14.6 [facility] Erythrocyte distribution wid th standard deviationOrdered By: Safia Ruelas on 10-29-2024 Erythrocyte distribution width (RBC) [Ratio] 46.6 fl High 35.1-43.9 [facility] Glomerular filtration rate ( GFR) estimation/1.73 sq m using serum, plasma, or whole bOrdered By: Safia Ruelas on 10-29-2024 GFR/1.73 sq M.predicted among non-blacks MDRD (S/P/Bld) [Vol rate/Area] 59 mL/min/{1.73_m2} Low >60 [facility] Comment on above: mL/min/1.73m2 CKD-EP I Creatinine Equation (2020) Hematocrit Auto (Bld) [Volum e fraction]Ordered By: Safia Ruelas on 10-29-2024 Hematocrit (Bld) [Volume fraction] 37.8 % 37-47 [facility] Hemoglobin measurementOrdere d By: Safia Ruelas on 10-29-2024 Hemoglobin (Bld) [Mass/Vol] 12.2 g/dL 12.0-15.0 [facility] Immature granulocytes/100 WB C Auto (Bld)Ordered By: sherry Ruelas on 10-29-2024 Immature granulocytes/100 WBC (Bld) 0.400 % 0.0-0.9 [facility] Comment on above: IG% - Immature Granu locytes (promyelocytes, myelocytes and metamyelocytes) > 1% indicates that a LEFT SHIFT is Present. MCV (mean corpuscular volume ) determinationOrdered By: Safia Ruelas on 10-29-2024 MCV (RBC) [Entitic vol] 92.2 fL 81-99 [facility] Mean corpuscular hemoglobin (MCH) determinationOrdered By: Safia Ruelas on 10-29-2024 MCH (RBC) [Entitic mass] 29.8 pg 27.0-32.0 [facility] Mean corpuscular hemoglobin concentration (MCHC) determinationOrdered By: Safia Ruelas on 10-29-2024 MCHC (RBC) [Mass/Vol] 32.3 g/dL 32-36 [facility] Mean platelet volume determi nationOrdered By: Safia Ruelas on 10-29-2024 Platelet mean volume (Bld) [Entitic vol] 11.1 fL 6.2-12.0 [facility] Monocyte percentageOrdered B y: Safia Ruelas on 10-29-2024 Monocytes/100 WBC (Bld) 9.9 % 0-10 [facility] Neutrophil percentageOrdered By: Safia Cheoquyen on 10-29-2024 Neutrophils/100 WBC (Bld) 54.3 % 47-70 [facility] Nucleated red blood cell per centageOrdered By: Safia Cheobonimelanie on 10-29-2024 Nucleated RBC/100 WBC (Bld) [Ratio] 0 % 0-5 [facility] Platelet countOrdered By: Balbir sherry Cheobonimelanie on 10-29-2024 Platelets (Bld) [#/Vol] 283 10*3/uL 150-450 [facility] Potassium measurement (mass/ volume)Ordered By: Balbirjean mariejosé antonio Cheoquyen on 10-29-2024 Potassium (Unsp spec) [Mass/Vol] 3.9 mmol/L 3.3-5.1 [facility] RBC Auto (Bld) [#/Vol]Ordere d By: Safia Cheoquyen on 10-29-2024 RBC (Bld) [#/Vol] 4.10 10*6/uL Low 4.2-5.4 [facility] Serum creatinine measurement (mass/volume)Ordered By: Safia Cheoquyen on 10-29-2024 Creatinine [Mass/Vol] 0.97 mg/dL 0.70-1.20 [facility] Serum glucose measurement (m ass/volume)Ordered By: aBlbirjean mariedesireeskye Griderbonimelanie on 10-29-2024 Glucose [Mass/Vol] 74 mg/dL 70-99 [facility] Serum or plasma calcium dayna urement (mass/volume)Ordered By: Balbirjean mariejosé antonio Cheobonimelanie on 10-29-2024 Calcium [Mass/Vol] 9.5 mg/dL 7.6-11.0 [facility] Serum or plasma urea nitroge n measurement (mass/volume)Ordered By: Balbirjean mariedesireeskye Griderbonimelanie on 10-29-2024 Urea nitrogen [Mass/Vol] 24 mg/dL High 4-19 [facility] Sodium levelOrdered By: Balbirjean marie josé antonio Cheobonimelanie on 10-29-2024 Sodium [Moles/Vol] 138 mmol/L 133-145 [facility] White blood cell (WBC) count Ordered By: Safia Ruelas on 10-29-2024 WBC (Bld) [#/Vol] 8.3 10*3/uL 4.4-11.0 [facility] Bilirubin Test strip Ql (U)O rdered By: Safia Ruelas on 10-23-2024 Bilirubin Ql (U) Negative Negative [facility] Ketones Test strip Ql (U)Ord ered By: Safia Ruelas on 10-23-2024 Ketones Ql (U) Negative Negative [facility] Nitrite Test strip Ql (U)Ord ered By: Safia Ruelas on 10-23-2024 Nitrite Ql (U) Positive High Negative [facility] Protein Test strip Ql (U)Ord ered By: Safia Ruelas on 10-23-2024 Protein Ql (U) 15 mg/dl High Negative [facility] Urine clarityOrdered By: Augusto Ruelas on 10-23-2024 Clarity (U) Clear Clear [facility] Urine color determinationOrd ered By: Safia Ruelas on 10-23-2024 Color (U) Yellow Yellow [facility] Urine cultureOrdered By: Augusto Ruelas on 10-23-2024 Bacteria identified Cx Nom (U) Klebsiella pneumoniae sp pneum Abnormal [facility] Urine glucose detectionOrder ed By: Safia Ruelas on 10-23-2024 Glucose Ql (U) Normal mg/dl Normal [facility] Urine leukocyte esterase det ection by dipstickOrdered By: Safia Ruelas on 10-23-2024 Leukocyte esterase Test strip Ql (U) 500 /ul High Negative [facility] Urine pHOrdered By: Mazin Ruelas on 10-23-2024 pH (U) 6.0 [pH] 5.0 - 8.0 [facility] Urine specific gravity measu rementOrdered By: Safia Ruelas on 10-23-2024 Specific gravity (U) [Rel density] 1.010 1.002-1.030 [facility] Urine urobilinogen measureme ntOrdered By: Safia Ruelas on 10-23-2024 Urobilinogen Ql (U) Normal mg/dl Normal [facility] Absolute lymphocyte countOrd ered By: Safia Griderbonimelanie on 10-22-2024 Lymphocytes Auto (Unsp spec) [#/Vol] 3.07 10*3/uL 0.83-4.51 [facility] Absolute neutrophil countOrd ered By: Safia Griderbonimelanie on 10-22-2024 Neutrophils (Bld) [#/Vol] 4.6 10*3/uL 2.0-7.7 [facility] Anion gap in Serum or Plasma Ordered By: Safia Ruelas on 10-22-2024 Anion gap [Moles/Vol] 15 mmol/L 5-15 [facility] Automated lymphocyte count a s percentage of total leukocytesOrdered By: Safia Ruelas on 10-22-2024 Lymphocytes/100 WBC Auto (Unsp spec) 34.8 % 19-41 [facility] BUN/creatinine ratioOrdered By: Safia Ruelas on 10-22-2024 Urea nitrogen/Creatinine [Mass ratio] 28.6 mg/mg High 10-20 [facility] Basophil percentageOrdered B y: Safia Ruelas on 10-22-2024 Basophils/100 WBC (Bld) 0.9 % 0-1 [facility] Carbon dioxide, total [Moles /volume] in Central venous bloodOrdered By: Safia Ruelas on 10-22-2024 CO2 [Moles/Vol] 23.1 mmol/L 21.0-32.0 [facility] Chloride assayOrdered By: Balbir Ruelas on 10-22-2024 Chloride [Moles/Vol] 100 mmol/L 98-108 [facility] Eosinophil percentageOrdered By: Safia Ruelas on 10-22-2024 Eosinophils/100 WBC (Bld) 3.1 % 0-5 [facility] Erythrocyte distribution wid th ratioOrdered By: Safia Ruelas on 10-22-2024 Erythrocyte distribution width (RBC) [Ratio] 13.6 % 11.6-14.6 [facility] Erythrocyte distribution wid th standard deviationOrdered By: Safia Ruelas on 10-22-2024 Erythrocyte distribution width (RBC) [Ratio] 45.9 fl High 35.1-43.9 [facility] Glomerular filtration rate ( GFR) estimation/1.73 sq m using serum, plasma, or whole bOrdered By: Safia Ruelas on 10-22-2024 GFR/1.73 sq M.predicted among non-blacks MDRD (S/P/Bld) [Vol rate/Area] 60 mL/min/{1.73_m2} >60 [facility] Comment on above: mL/min/1.73m2 CKD-EP I Creatinine Equation (2020) Hematocrit Auto (Bld) [Volum e fraction]Ordered By: Safia Ruelas on 10-22-2024 Hematocrit (Bld) [Volume fraction] 40.7 % 37-47 [facility] Hemoglobin measurementOrdere d By: Safia Ruelas on 10-22-2024 Hemoglobin (Bld) [Mass/Vol] 13.1 g/dL 12.0-15.0 [facility] Immature granulocytes/100 WB C Auto (Bld)Ordered By: Safia Ruelas on 10-22-2024 Immature granulocytes/100 WBC (Bld) 1.400 % High 0.0-0.9 [facility] Comment on above: IG% - Immature Granu locytes (promyelocytes, myelocytes and metamyelocytes) > 1% indicates that a LEFT SHIFT is Present. MCV (mean corpuscular volume ) determinationOrdered By: Safia Ruelas on 10-22-2024 MCV (RBC) [Entitic vol] 91.9 fL 81-99 [facility] Mean corpuscular hemoglobin (MCH) determinationOrdered By: Safia Ruelas on 10-22-2024 MCH (RBC) [Entitic mass] 29.6 pg 27.0-32.0 [facility] Mean corpuscular hemoglobin concentration (MCHC) determinationOrdered By: Safia Ruelas 10-22-2024 MCHC (RBC) [Mass/Vol] 32.2 g/dL 32-36 [facility] Mean platelet volume determi nationOrdered By: Safia Ruelas on 10-22-2024 Platelet mean volume (Bld) [Entitic vol] 11.2 fL 6.2-12.0 [facility] Monocyte percentageOrdered B y: Safia Ruelas on 10-22-2024 Monocytes/100 WBC (Bld) 7.7 % 0-10 [facility] Neutrophil percentageOrdered By: Safia Ruelas on 10-22-2024 Neutrophils/100 WBC (Bld) 52.1 % 47-70 [facility] Nucleated red blood cell per centageOrdered By: Safia Ruelas on 10-22-2024 Nucleated RBC/100 WBC (Bld) [Ratio] 0 % 0-5 [facility] Platelet countOrdered By: Balbir Ruelas on 10-22-2024 Platelets (Bld) [#/Vol] 334 10*3/uL 150-450 [facility] Potassium measurement (mass/ volume)Ordered By: Safia Ruelas on 10-22-2024 Potassium (Unsp spec) [Mass/Vol] 3.7 mmol/L 3.3-5.1 [facility] RBC Auto (Bld) [#/Vol]Ordere d By: Safia Ruelas on 10-22-2024 RBC (Bld) [#/Vol] 4.43 10*6/uL 4.2-5.4 [facility] Serum creatinine measurement (mass/volume)Ordered By: Safia Ruelas on 10-22-2024 Creatinine [Mass/Vol] 0.96 mg/dL 0.70-1.20 [facility] Serum glucose measurement (m ass/volume)Ordered By: Safia Ruelas on 10-22-2024 Glucose [Mass/Vol] 106 mg/dL High 70-99 [facility] Serum or plasma calcium dayna urement (mass/volume)Ordered By: Safia Ruelas on 10-22-2024 Calcium [Mass/Vol] 9.4 mg/dL 7.6-11.0 [facility] Serum or plasma urea nitroge n measurement (mass/volume)Ordered By: Safia Westonmelanie on 10-22-2024 Urea nitrogen [Mass/Vol] 28 mg/dL High 4-19 [facility] Sodium levelOrdered By: Leonides jiménezradha Jessenia on 10-22-2024 Sodium [Moles/Vol] 138 mmol/L 133-145 [facility] TSH DL <= 0.005 mIU/L QnOrde red By: Safia Ruelas on 10-22-2024 TSH Qn 4.630 uIU/mL High 0.300-4.200 [facility] White blood cell (WBC) count Ordered By: Safia Ruelas on 10-22-2024 WBC (Bld) [#/Vol] 8.8 10*3/uL 4.4-11.0 [facility] Absolute lymphocyte countOrd ered By: Safia Ruelas on 10-15-2024 Lymphocytes Auto (Unsp spec) [#/Vol] 3.04 10*3/uL 0.83-4.51 [facility] Absolute neutrophil countOrd ered By: Safia Ruelas on 10-15-2024 Neutrophils (Bld) [#/Vol] 4.3 10*3/uL 2.0-7.7 [facility] Anion gap in Serum or Plasma Ordered By: Safia Ruelas on 10-15-2024 Anion gap [Moles/Vol] 12 mmol/L 5-15 [facility] Automated lymphocyte count a s percentage of total leukocytesOrdered By: Safia Ruelas on 10-15-2024 Lymphocytes/100 WBC Auto (Unsp spec) 36.7 % 19-41 [facility] BUN/creatinine ratioOrdered By: Safia Ruelas on 10-15-2024 Urea nitrogen/Creatinine [Mass ratio] 36.5 mg/mg High 10-20 [facility] Basophil percentageOrdered B y: Safia Ruelas on 10-15-2024 Basophils/100 WBC (Bld) 0.7 % 0-1 [facility] Carbon dioxide, total [Moles /volume] in Central venous bloodOrdered By: Safia Ruelas on 10-15-2024 CO2 [Moles/Vol] 25.2 mmol/L 21.0-32.0 [facility] Chloride assayOrdered By: Balbir Ruelas on 10-15-2024 Chloride [Moles/Vol] 100 mmol/L 98-108 [facility] Eosinophil percentageOrdered By: Safia Ruelas on 10-15-2024 Eosinophils/100 WBC (Bld) 2.4 % 0-5 [facility] Erythrocyte distribution wid th ratioOrdered By: Safia Ruelas on 10-15-2024 Erythrocyte distribution width (RBC) [Ratio] 13.5 % 11.6-14.6 [facility] Erythrocyte distribution wid th standard deviationOrdered By: Safia Ruelas on 10-15-2024 Erythrocyte distribution width (RBC) [Ratio] 45.2 fl High 35.1-43.9 [facility] Glomerular filtration rate ( GFR) estimation/1.73 sq m using serum, plasma, or whole bOrdered By: Safia Ruelas on 10-15-2024 GFR/1.73 sq M.predicted among non-blacks MDRD (S/P/Bld) [Vol rate/Area] 71 mL/min/{1.73_m2} >60 [facility] Comment on above: mL/min/1.73m2 CKD-EP I Creatinine Equation (2020) Hematocrit Auto (Bld) [Volum e fraction]Ordered By: Safia Ruelas on 10-15-2024 Hematocrit (Bld) [Volume fraction] 40.3 % 37-47 [facility] Hemoglobin measurementOrdere d By: Safia Ruelas on 10-15-2024 Hemoglobin (Bld) [Mass/Vol] 13.3 g/dL 12.0-15.0 [facility] Immature granulocytes/100 WB C Auto (Bld)Ordered By: Safia Ruelas on 10-15-2024 Immature granulocytes/100 WBC (Bld) 0.400 % 0.0-0.9 [facility] Comment on above: IG% - Immature Granu locytes (promyelocytes, myelocytes and metamyelocytes) > 1% indicates that a LEFT SHIFT is Present. MCV (mean corpuscular volume ) determinationOrdered By: Safia Ruelas on 10-15-2024 MCV (RBC) [Entitic vol] 91.0 fL 81-99 [facility] Mean corpuscular hemoglobin (MCH) determinationOrdered By: Safia Ruelas on 10-15-2024 MCH (RBC) [Entitic mass] 30.0 pg 27.0-32.0 [facility] Mean corpuscular hemoglobin concentration (MCHC) determinationOrdered By: Safia Ruelas on 10-15-2024 MCHC (RBC) [Mass/Vol] 33.0 g/dL 32-36 [facility] Mean platelet volume determi nationOrdered By: Safia Ruelas on 10-15-2024 Platelet mean volume (Bld) [Entitic vol] 11.9 fL 6.2-12.0 [facility] Monocyte percentageOrdered B y: Safia Ruelas on 10-15-2024 Monocytes/100 WBC (Bld) 8.2 % 0-10 [facility] Neutrophil percentageOrdered By: Safia Ruelas on 10-15-2024 Neutrophils/100 WBC (Bld) 51.6 % 47-70 [facility] Nucleated red blood cell per centageOrdered By: Safia Ruelas on 10-15-2024 Nucleated RBC/100 WBC (Bld) [Ratio] 0 % 0-5 [facility] Platelet countOrdered By: Balbir Ruelas on 10-15-2024 Platelets (Bld) [#/Vol] 221 10*3/uL 150-450 [facility] Potassium measurement (mass/ volume)Ordered By: Safia Ruelas on 10-15-2024 Potassium (Unsp spec) [Mass/Vol] 3.8 mmol/L 3.3-5.1 [facility] RBC Auto (Bld) [#/Vol]Ordere d By: Safia Ruelas on 10-15-2024 RBC (Bld) [#/Vol] 4.43 10*6/uL 4.2-5.4 [facility] Serum creatinine measurement (mass/volume)Ordered By: Safia Ruelas on 10-15-2024 Creatinine [Mass/Vol] 0.83 mg/dL 0.70-1.20 [facility] Serum glucose measurement (m ass/volume)Ordered By: Safia Ruelas on 10-15-2024 Glucose [Mass/Vol] 68 mg/dL Low 70-99 [facility] Serum or plasma calcium dayna urement (mass/volume)Ordered By: Balbirsherry Griderbonimelanie on 10-15-2024 Calcium [Mass/Vol] 9.3 mg/dL 7.6-11.0 [facility] Serum or plasma urea nitroge n measurement (mass/volume)Ordered By: Safia Ruelas on 10-15-2024 Urea nitrogen [Mass/Vol] 30 mg/dL High 4-19 [facility] Sodium levelOrdered By: Balbirjean marie chou Cheobonimelanie on 10-15-2024 Sodium [Moles/Vol] 138 mmol/L 133-145 [facility] White blood cell (WBC) count Ordered By: Safia Ruelas on 10-15-2024 WBC (Bld) [#/Vol] 8.3 10*3/uL 4.4-11.0 [facility] Absolute lymphocyte countOrd ered By: Safia Ruelas on 10-08-2024 Lymphocytes Auto (Unsp spec) [#/Vol] 2.52 10*3/uL 0.83-4.51 [facility] Absolute neutrophil countOrd ered By: Safia Ruelas on 10-08-2024 Neutrophils (Bld) [#/Vol] 4.9 10*3/uL 2.0-7.7 [facility] Anion gap in Serum or Plasma Ordered By: Safia Ruelas on 10-08-2024 Anion gap [Moles/Vol] 14 mmol/L 5-15 [facility] Automated lymphocyte count a s percentage of total leukocytesOrdered By: Safia Ruelas on 10-08-2024 Lymphocytes/100 WBC Auto (Unsp spec) 29.4 % 19-41 [facility] BUN/creatinine ratioOrdered By: Balbirsherry Ruelas on 10-08-2024 Urea nitrogen/Creatinine [Mass ratio] 34.1 mg/mg High 10-20 [facility] Basophil percentageOrdered B y: Safia Ruelas on 10-08-2024 Basophils/100 WBC (Bld) 0.7 % 0-1 [facility] Carbon dioxide, total [Moles /volume] in Central venous bloodOrdered By: Safia Ruelas on 10-08-2024 CO2 [Moles/Vol] 24.0 mmol/L 21.0-32.0 [facility] Chloride assayOrdered By: Balbir Ruelas on 10-08-2024 Chloride [Moles/Vol] 100 mmol/L 98-108 [facility] Eosinophil percentageOrdered By: Safia Ruelas on 10-08-2024 Eosinophils/100 WBC (Bld) 2.6 % 0-5 [facility] Erythrocyte distribution wid th ratioOrdered By: Safia Ruelas on 10-08-2024 Erythrocyte distribution width (RBC) [Ratio] 13.2 % 11.6-14.6 [facility] Erythrocyte distribution wid th standard deviationOrdered By: jean mariemontereyskye Ruelas on 10-08-2024 Erythrocyte distribution width (RBC) [Ratio] 45.3 fl High 35.1-43.9 [facility] Glomerular filtration rate ( GFR) estimation/1.73 sq m using serum, plasma, or whole bOrdered By: Safia Ruelas on 10-08-2024 GFR/1.73 sq M.predicted among non-blacks MDRD (S/P/Bld) [Vol rate/Area] 65 mL/min/{1.73_m2} >60 [facility] Comment on above: mL/min/1.73m2 CKD-EP I Creatinine Equation (2020) Hematocrit Auto (Bld) [Volum e fraction]Ordered By: Safia Ruelas on 10-08-2024 Hematocrit (Bld) [Volume fraction] 41.7 % 37-47 [facility] Hemoglobin measurementOrdere d By: Safia Ruelas on 10-08-2024 Hemoglobin (Bld) [Mass/Vol] 13.3 g/dL 12.0-15.0 [facility] Immature granulocytes/100 WB C Auto (Bld)Ordered By: Safia Ruelas on 10-08-2024 Immature granulocytes/100 WBC (Bld) 0.400 % 0.0-0.9 [facility] Comment on above: IG% - Immature Granu locytes (promyelocytes, myelocytes and metamyelocytes) > 1% indicates that a LEFT SHIFT is Present. MCV (mean corpuscular volume ) determinationOrdered By: Safia Ruelas on 10-08-2024 MCV (RBC) [Entitic vol] 92.7 fL 81-99 [facility] Mean corpuscular hemoglobin (MCH) determinationOrdered By: Safia Ruelas on 10-08-2024 MCH (RBC) [Entitic mass] 29.6 pg 27.0-32.0 [facility] Mean corpuscular hemoglobin concentration (MCHC) determinationOrdered By: Safia Ruelas on 10-08-2024 MCHC (RBC) [Mass/Vol] 31.9 g/dL Low 32-36 [facility] Mean platelet volume determi nationOrdered By: Safia Ruelas on 10-08-2024 Platelet mean volume (Bld) [Entitic vol] 11.0 fL 6.2-12.0 [facility] Monocyte percentageOrdered B y: Safia Ruelas on 10-08-2024 Monocytes/100 WBC (Bld) 9.2 % 0-10 [facility] Neutrophil percentageOrdered By: Safia Ruelas on 10-08-2024 Neutrophils/100 WBC (Bld) 57.7 % 47-70 [facility] Nucleated red blood cell per centageOrdered By: Safia Ruelas on 10-08-2024 Nucleated RBC/100 WBC (Bld) [Ratio] 0 % 0-5 [facility] Platelet countOrdered By: Balbir Ruelas on 10-08-2024 Platelets (Bld) [#/Vol] 323 10*3/uL 150-450 [facility] Potassium measurement (mass/ volume)Ordered By: Safia Ruelas on 10-08-2024 Potassium (Unsp spec) [Mass/Vol] 4.1 mmol/L 3.3-5.1 [facility] RBC Auto (Bld) [#/Vol]Ordere d By: Safia Ruelas on 10-08-2024 RBC (Bld) [#/Vol] 4.50 10*6/uL 4.2-5.4 [facility] Serum creatinine measurement (mass/volume)Ordered By: Safia Cheobonimelanie on 10-08-2024 Creatinine [Mass/Vol] 0.90 mg/dL 0.70-1.20 [facility] Serum glucose measurement (m ass/volume)Ordered By: Bandarskye Griderbonimelanie on 10-08-2024 Glucose [Mass/Vol] 82 mg/dL 70-99 [facility] Serum or plasma calcium dayna urement (mass/volume)Ordered By: randallskye Griderbonimelanie on 10-08-2024 Calcium [Mass/Vol] 9.6 mg/dL 7.6-11.0 [facility] Serum or plasma urea nitroge n measurement (mass/volume)Ordered By: Leonidesmontereyskye Cheobonimelanie on 10-08-2024 Urea nitrogen [Mass/Vol] 31 mg/dL High 4-19 [facility] Sodium levelOrdered By: Leonides Ruelas on 10-08-2024 Sodium [Moles/Vol] 138 mmol/L 133-145 [facility] White blood cell (WBC) count Ordered By: Safia Cheoquyen on 10-08-2024 WBC (Bld) [#/Vol] 8.6 10*3/uL 4.4-11.0 [facility] 12 Lead EKG performed by [facility] on 10-02-2024 12 Lead EKG performed by [address] [address] 12 Lead EKG performed by [facility] 10/02/24 0921 MR#: [id number] Acct: [id number] Name: LINDSAY ACUNA Rep #: [id number] : 1945 78 From: Mj Benavides MD Attending Dr: Dr. Mj Benavides MD Status: DEP A MB Ordering Dr: jM Benavides MD Date: 10/02/24 [place] [facility] Sex: F C Admitted: [facility]/12 Lead EKG performed by [facility] ECG Report Interpretation ---Atrial fibrillation -irregular conduction -Old anterior infarct. ABNORMAL Electronically signed on 10/02/2024 at 16:06 by Mj Benavides Software Version [id number] 10/02/24 1608 Date Mj Benavides MD CC: Dr. Kameron Caruso MD Date Dictated: 10/02/24920 Date Transcribed: 10/02/24920 Javascript Software Engineer: [place] Signed Normal [facility] Cardiology Visit Reporton Cardiology Visit Report [facility] [address] [place] [address]. [address] [place] [address] OFFICE VISIT Date of Service: 10/02/24 MR#: [id number] Acct: [id number] Name: LINDSAY ACUNA Rep #: [id number] : 1945 Provider: Dr. Mj Benavides MD Age/Sex: 78/F Location: [facility] Status: Signed HPI HPI History [...] now she is currently domiciled in a shelter. Her previous echocardiogram which was performed in [...] W/C bound Intake Visit Reasons: AFIB ([facility]) [place] Required: No Accompanied by: Significant Other Is [...] normal, nasal (more content not included)... Normal [facility] Absolute lymphocyte countOrd ered By: Safia Ruelas on 10-01-2024 Lymphocytes Auto (Unsp spec) [#/Vol] 2.45 10*3/uL 0.83-4.51 [facility] Absolute neutrophil countOrd ered By: Safia Ruelas on 10-01-2024 Neutrophils (Bld) [#/Vol] 6.5 10*3/uL 2.0-7.7 [facility] Anion gap in Serum or Plasma Ordered By: Safia Ruelas on 10-01-2024 Anion gap [Moles/Vol] 12 mmol/L 5-15 [facility] Automated lymphocyte count a s percentage of total leukocytesOrdered By: Safia Ruelas on 10-01-2024 Lymphocytes/100 WBC Auto (Unsp spec) 23.1 % 19-41 [facility] BUN/creatinine ratioOrdered By: Balbirjean mariedesireeskye Griderbonimelanie on 10-01-2024 Urea nitrogen/Creatinine [Mass ratio] 24.9 mg/mg High 10-20 [facility] Basophil percentageOrdered B y: Balbirrandallskye Griderbonimelanie on 10-01-2024 Basophils/100 WBC (Bld) 0.5 % 0-1 [facility] Carbon dioxide, total [Moles /volume] in Central venous bloodOrdered By: jean mariemontereyskye Griderbonimelanie on 10-01-2024 CO2 [Moles/Vol] 24.4 mmol/L 21.0-32.0 [facility] Chloride assayOrdered By: Balbir randallskye Griderbonimelanie on 10-01-2024 Chloride [Moles/Vol] 99 mmol/L 98-108 [facility] Eosinophil percentageOrdered By: jean mariemontereyskye Griderbonimelanie on 10-01-2024 Eosinophils/100 WBC (Bld) 2.0 % 0-5 [facility] Erythrocyte distribution wid th ratioOrdered By: [facility] Cheobonimelanie on 10-01-2024 Erythrocyte distribution width (RBC) [Ratio] 13.5 % 11.6-14.6 [facility] Erythrocyte distribution wid th standard deviationOrdered By: jean mariemontereyskye Cheobonimelanie on 10-01-2024 Erythrocyte distribution width (RBC) [Ratio] 46.2 fl High 35.1-43.9 [facility] Glomerular filtration rate ( GFR) estimation/1.73 sq m using serum, plasma, or whole bOrdered By: Safia Ruelas on 10-01-2024 GFR/1.73 sq M.predicted among non-blacks MDRD (S/P/Bld) [Vol rate/Area] 63 mL/min/{1.73_m2} >60 [facility] Comment on above: mL/min/1.73m2 CKD-EP I Creatinine Equation (2020) Hematocrit Auto (Bld) [Volum e fraction]Ordered By: Safia Ruelas on 10-01-2024 Hematocrit (Bld) [Volume fraction] 38.7 % 37-47 [facility] Hemoglobin measurementOrdere d By: Safia Ruelas on 10-01-2024 Hemoglobin (Bld) [Mass/Vol] 12.5 g/dL 12.0-15.0 [facility] Immature granulocytes/100 WB C Auto (Bld)Ordered By: Safia Ruelas on 10-01-2024 Immature granulocytes/100 WBC (Bld) 0.800 % 0.0-0.9 [facility] Comment on above: IG% - Immature Granu locytes (promyelocytes, myelocytes and metamyelocytes) > 1% indicates that a LEFT SHIFT is Present. MCV (mean corpuscular volume ) determinationOrdered By: Safia Ruelas on 10-01-2024 MCV (RBC) [Entitic vol] 93.3 fL 81-99 [facility] Mean corpuscular hemoglobin (MCH) determinationOrdered By: jean mariemontereyskye Ruelas on 10-01-2024 MCH (RBC) [Entitic mass] 30.1 pg 27.0-32.0 [facility] Mean corpuscular hemoglobin concentration (MCHC) determinationOrdered By: sherry Ruelas on 10-01-2024 MCHC (RBC) [Mass/Vol] 32.3 g/dL 32-36 [facility] Mean platelet volume determi nationOrdered By: Safia Ruelas on 10-01-2024 Platelet mean volume (Bld) [Entitic vol] 11.7 fL 6.2-12.0 [facility] Monocyte percentageOrdered B y: Safia Ruelas on 10-01-2024 Monocytes/100 WBC (Bld) 12.7 % High 0-10 [facility] Neutrophil percentageOrdered By: sherry Ruelas on 10-01-2024 Neutrophils/100 WBC (Bld) 60.9 % 47-70 [facility] Nucleated red blood cell per centageOrdered By: Safia Ruelas on 10-01-2024 Nucleated RBC/100 WBC (Bld) [Ratio] 0 % 0-5 [facility] Platelet countOrdered By: Balbir Ruelas on 10-01-2024 Platelets (Bld) [#/Vol] 371 10*3/uL 150-450 [facility] Potassium measurement (mass/ volume)Ordered By: Leonidesdesireeskye Ruelas on 10-01-2024 Potassium (Unsp spec) [Mass/Vol] 4.2 mmol/L 3.3-5.1 [facility] RBC Auto (Bld) [#/Vol]Ordere d By: Balbirjean mariedesireeskye Griderbonimelanie on 10-01-2024 RBC (Bld) [#/Vol] 4.15 10*6/uL Low 4.2-5.4 [facility] Serum creatinine measurement (mass/volume)Ordered By: Safia Ruelas on 10-01-2024 Creatinine [Mass/Vol] 0.93 mg/dL 0.70-1.20 [facility] Serum glucose measurement (m ass/volume)Ordered By: Safia Ruelas on 10-01-2024 Glucose [Mass/Vol] 93 mg/dL 70-99 [facility] Serum or plasma calcium dayna urement (mass/volume)Ordered By: Safia Ruelas on 10-01-2024 Calcium [Mass/Vol] 9.5 mg/dL 7.6-11.0 [facility] Serum or plasma urea nitroge n measurement (mass/volume)Ordered By: Safia Ruelas on 10-01-2024 Urea nitrogen [Mass/Vol] 23 mg/dL High 4-19 [facility] Sodium levelOrdered By: Balbirjean marie josé antonio Cheobonimelanie on 10-01-2024 Sodium [Moles/Vol] 135 mmol/L 133-145 [facility] White blood cell (WBC) count Ordered By: Safia Ruelas on 10-01-2024 WBC (Bld) [#/Vol] 10.6 10*3/uL 4.4-11.0 [facility] Clostridium difficile detect ion by polymerase chain reactionOrdered By: Safia Ruelas on 09-29-2024 C. difficile DNA CHUCKY+probe Ql (Unsp spec) [facility] Absolute lymphocyte countOrd ered By: Safia Ruelas on 09-24-2024 Lymphocytes Auto (Unsp spec) [#/Vol] 2.72 10*3/uL 0.83-4.51 [facility] Absolute neutrophil countOrd ered By: Safia Ruelas on 09-24-2024 Neutrophils (Bld) [#/Vol] 6.3 10*3/uL 2.0-7.7 [facility] Anion gap in Serum or Plasma Ordered By: Safia Ruelas on 09-24-2024 Anion gap [Moles/Vol] 12 mmol/L 5-15 [facility] Automated lymphocyte count a s percentage of total leukocytesOrdered By: Safia Ruelas on 09-24-2024 Lymphocytes/100 WBC Auto (Unsp spec) 26.3 % 19-41 [facility] BUN/creatinine ratioOrdered By: Safia Ruelas on 09-24-2024 Urea nitrogen/Creatinine [Mass ratio] 36.4 mg/mg High 10-20 [facility] Basophil percentageOrdered B y: Safia Ruelas on 09-24-2024 Basophils/100 WBC (Bld) 0.7 % 0-1 [facility] Carbon dioxide, total [Moles /volume] in Central venous bloodOrdered By: Safia Ruelas on 09-24-2024 CO2 [Moles/Vol] 24.1 mmol/L 21.0-32.0 [facility] Chloride assayOrdered By: Balbir Ruelas on 09-24-2024 Chloride [Moles/Vol] 100 mmol/L 98-108 [facility] Eosinophil percentageOrdered By: Safia Reulas on 09-24-2024 Eosinophils/100 WBC (Bld) 2.7 % 0-5 [facility] Erythrocyte distribution wid th ratioOrdered By: Safia Ruelas on 09-24-2024 Erythrocyte distribution width (RBC) [Ratio] 13.6 % 11.6-14.6 [facility] Erythrocyte distribution wid th standard deviationOrdered By: Safia Ruelas on 09-24-2024 Erythrocyte distribution width (RBC) [Ratio] 47.1 fl High 35.1-43.9 [facility] Glomerular filtration rate ( GFR) estimation/1.73 sq m using serum, plasma, or whole bOrdered By: Safia Ruelas on 09-24-2024 GFR/1.73 sq M.predicted among non-blacks MDRD (S/P/Bld) [Vol rate/Area] 62 mL/min/{1.73_m2} >60 [facility] Comment on above: mL/min/1.73m2 CKD-EP I Creatinine Equation (2020) Hematocrit Auto (Bld) [Volum e fraction]Ordered By: Safia Ruelas on 09-24-2024 Hematocrit (Bld) [Volume fraction] 41.2 % 37-47 [facility] Hemoglobin measurementOrdere d By: Safia Ruelas on 09-24-2024 Hemoglobin (Bld) [Mass/Vol] 13.0 g/dL 12.0-15.0 [facility] Immature granulocytes/100 WB C Auto (Bld)Ordered By: Safia Ruelas on 09-24-2024 Immature granulocytes/100 WBC (Bld) 1.000 % High 0.0-0.9 [facility] Comment on above: IG% - Immature Granu locytes (promyelocytes, myelocytes and metamyelocytes) > 1% indicates that a LEFT SHIFT is Present. MCV (mean corpuscular volume ) determinationOrdered By: Safia Ruelas on 09-24-2024 MCV (RBC) [Entitic vol] 94.3 fL 81-99 [facility] Mean corpuscular hemoglobin (MCH) determinationOrdered By: Leonidesmontereyskye Ruelas on 09-24-2024 MCH (RBC) [Entitic mass] 29.7 pg 27.0-32.0 [facility] Mean corpuscular hemoglobin concentration (MCHC) determinationOrdered By: Safia Ruelas on 09-24-2024 MCHC (RBC) [Mass/Vol] 31.6 g/dL Low 32-36 [facility] Mean platelet volume determi nationOrdered By: Leonidesmontereyskye Ruelas on 09-24-2024 Platelet mean volume (Bld) [Entitic vol] 11.3 fL 6.2-12.0 [facility] Monocyte percentageOrdered B y: Safia Ruelas on 09-24-2024 Monocytes/100 WBC (Bld) 8.9 % 0-10 [facility] Neutrophil percentageOrdered By: Safia Ruelas on 09-24-2024 Neutrophils/100 WBC (Bld) 60.4 % 47-70 [facility] Nucleated red blood cell per centageOrdered By: Safia Ruelas on 09-24-2024 Nucleated RBC/100 WBC (Bld) [Ratio] 0 % 0-5 [facility] Platelet countOrdered By: Balbir jean mariejosé antonio Ruelas on 09-24-2024 Platelets (Bld) [#/Vol] 441 10*3/uL 150-450 [facility] Potassium measurement (mass/ volume)Ordered By: Safia Ruelas on 09-24-2024 Potassium (Unsp spec) [Mass/Vol] 4.3 mmol/L 3.3-5.1 [facility] RBC Auto (Bld) [#/Vol]Ordere d By: Safia Ruelas on 09-24-2024 RBC (Bld) [#/Vol] 4.37 10*6/uL 4.2-5.4 [facility] Serum creatinine measurement (mass/volume)Ordered By: Safia Ruelas on 09-24-2024 Creatinine [Mass/Vol] 0.93 mg/dL 0.70-1.20 [facility] Serum glucose measurement (m ass/volume)Ordered By: Safia Ruelas on 09-24-2024 Glucose [Mass/Vol] 48 mg/dL Low 70-99 [facility] Serum or plasma calcium dayna urement (mass/volume)Ordered By: Safia Ruelas on 09-24-2024 Calcium [Mass/Vol] 9.5 mg/dL 7.6-11.0 [facility] Serum or plasma urea nitroge n measurement (mass/volume)Ordered By: Safia Ruelas on 09-24-2024 Urea nitrogen [Mass/Vol] 34 mg/dL High 4-19 [facility] Sodium levelOrdered By: Leonides jiménezradha Jessenia on 09-24-2024 Sodium [Moles/Vol] 136 mmol/L 133-145 [facility] White blood cell (WBC) count Ordered By: Safia Ruelas on 09-24-2024 WBC (Bld) [#/Vol] 10.4 10*3/uL 4.4-11.0 [facility] Absolute lymphocyte countOrd ered By: Safia Ruelas on 09-17-2024 Lymphocytes Auto (Unsp spec) [#/Vol] 2.52 10*3/uL 0.83-4.51 [facility] Absolute neutrophil countOrd ered By: Safia Ruelas on 09-17-2024 Neutrophils (Bld) [#/Vol] 5.8 10*3/uL 2.0-7.7 [facility] Anion gap in Serum or Plasma Ordered By: Safia Ruelas on 09-17-2024 Anion gap [Moles/Vol] 12 mmol/L 5-15 [facility] Automated lymphocyte count a s percentage of total leukocytesOrdered By: Safia Ruelas on 09-17-2024 Lymphocytes/100 WBC Auto (Unsp spec) 26.3 % 19-41 [facility] BUN/creatinine ratioOrdered By: Safia Ruelas on 09-17-2024 Urea nitrogen/Creatinine [Mass ratio] 45.9 mg/mg High 10-20 [facility] Basophil percentageOrdered B y: Safia Ruelas on 09-17-2024 Basophils/100 WBC (Bld) 0.6 % 0-1 [facility] Calculated very low density lipoprotein (VLDL) cholesterol measurementOrdered By: Safia Rueals on 09-17-2024 Calculated very low density lipoprotein (VLDL) cholesterol measurement 22 mg/dL 5-40 [facility] Carbon dioxide, total [Moles /volume] in Central venous bloodOrdered By: Safia Ruelas on 09-17-2024 CO2 [Moles/Vol] 24.5 mmol/L 21.0-32.0 [facility] Chloride assayOrdered By: Balbir Ruelas on 09-17-2024 Chloride [Moles/Vol] 98 mmol/L 98-108 [facility] Eosinophil percentageOrdered By: Safia Ruelas on 09-17-2024 Eosinophils/100 WBC (Bld) 3.2 % 0-5 [facility] Erythrocyte distribution wid th ratioOrdered By: Safia Ruelas on 09-17-2024 Erythrocyte distribution width (RBC) [Ratio] 13.4 % 11.6-14.6 [facility] Erythrocyte distribution wid th standard deviationOrdered By: Safia Ruelas on 09-17-2024 Erythrocyte distribution width (RBC) [Ratio] 45.4 fl High 35.1-43.9 [facility] Glomerular filtration rate ( GFR) estimation/1.73 sq m using serum, plasma, or whole bOrdered By: Safia Ruelas on 09-17-2024 GFR/1.73 sq M.predicted among non-blacks MDRD (S/P/Bld) [Vol rate/Area] 69 mL/min/{1.73_m2} >60 [facility] Comment on above: mL/min/1.73m2 CKD-EP I Creatinine Equation (2020) Hematocrit Auto (Bld) [Volum e fraction]Ordered By: Safia Ruelas on 09-17-2024 Hematocrit (Bld) [Volume fraction] 38.8 % 37-47 [facility] Hemoglobin measurementOrdere d By: Safia Ruelas on 09-17-2024 Hemoglobin (Bld) [Mass/Vol] 12.6 g/dL 12.0-15.0 [facility] Immature granulocytes/100 WB C Auto (Bld)Ordered By: Safia Ruelas on 09-17-2024 Immature granulocytes/100 WBC (Bld) 0.700 % 0.0-0.9 [facility] Comment on above: IG% - Immature Granu locytes (promyelocytes, myelocytes and metamyelocytes) > 1% indicates that a LEFT SHIFT is Present. LDL calc ser/plasOrdered By: Safia Ruelas on 09-17-2024 Cholesterol in LDL [Mass/Vol] 120 mg/dL [facility] Comment on above: Anbrzpkgxk=261-859 m g/dL & Higher Zqoq=153 mg/dL or greater MCV (mean corpuscular volume ) determinationOrdered By: Safia Ruelas on 09-17-2024 MCV (RBC) [Entitic vol] 91.7 fL 81-99 [facility] Mean corpuscular hemoglobin (MCH) determinationOrdered By: Safia Ruelas on 09-17-2024 MCH (RBC) [Entitic mass] 29.8 pg 27.0-32.0 [facility] Mean corpuscular hemoglobin concentration (MCHC) determinationOrdered By: Safia Ruelas on 09-17-2024 MCHC (RBC) [Mass/Vol] 32.5 g/dL 32-36 [facility] Mean platelet volume determi nationOrdered By: Safia Ruelas on 09-17-2024 Platelet mean volume (Bld) [Entitic vol] 11.4 fL 6.2-12.0 [facility] Monocyte percentageOrdered B y: Safia Ruelas on 09-17-2024 Monocytes/100 WBC (Bld) 8.5 % 0-10 [facility] Neutrophil percentageOrdered By: Leonidesmontereyskye Ruelas on 09-17-2024 Neutrophils/100 WBC (Bld) 60.7 % 47-70 [facility] Nucleated red blood cell per centageOrdered By: Safia Ruelas on 09-17-2024 Nucleated RBC/100 WBC (Bld) [Ratio] 0 % 0-5 [facility] Platelet countOrdered By: Balbir Ruelas on 09-17-2024 Platelets (Bld) [#/Vol] 311 10*3/uL 150-450 [facility] Potassium measurement (mass/ volume)Ordered By: Safia Ruelas on 09-17-2024 Potassium (Unsp spec) [Mass/Vol] 4.1 mmol/L 3.3-5.1 [facility] RBC Auto (Bld) [#/Vol]Ordere d By: Safia Ruelas on 09-17-2024 RBC (Bld) [#/Vol] 4.23 10*6/uL 4.2-5.4 [facility] Screening total cholesterol/ high density lipoprotein (HDL) cholesterol ratioOrdered By: Safia Ruelas on 09-17-2024 Cholesterol.total/Alta sterol in HDL [Mass ratio] 5.38 {ratio} [facility] Serum creatinine measurement (mass/volume)Ordered By: Safia Ruelas on 09-17-2024 Creatinine [Mass/Vol] 0.86 mg/dL 0.70-1.20 [facility] Serum glucose measurement (m ass/volume)Ordered By: Safia Ruelas on 09-17-2024 Glucose [Mass/Vol] 216 mg/dL High 70-99 [facility] Serum or plasma calcium dayna urement (mass/volume)Ordered By: Safia Ruelas on 09-17-2024 Calcium [Mass/Vol] 9.4 mg/dL 7.6-11.0 [facility] Serum or plasma cholesterol in HDL measurement (mass/volume)Ordered By: Safia Ruelas on 09-17-2024 Cholesterol in HDL [Mass/Vol] 33 mg/dL Low >40 [facility] Comment on above: National Cholesterol Education [...] the following risk-cutoff thresholds for the [place] population. Serum or plasma urea nitroge n measurement (mass/volume)Ordered By: Safia Ruelas on 09-17-2024 Urea nitrogen [Mass/Vol] 39 mg/dL High 4-19 [facility] Sodium levelOrdered By: Leonides Ruelas on 09-17-2024 Sodium [Moles/Vol] 134 mmol/L 133-145 [facility] TSH DL <= 0.005 mIU/L QnOrde red By: Safia Ruelas on 09-17-2024 TSH Qn 3.500 uIU/mL 0.300-4.200 [facility] Triglycerides measurementOrd ered By: Safia Ruelas on 09-17-2024 Triglyceride [Mass/Vol] 111 mg/dL <199 [facility] Comment on above: The drugs N-Acetylcy steine and Metamizole may falsely depress this assay. Normal range: <150 mg/dLBorderline High: 150-199 mg/dLHigh: 200-499 mg/dLVery High: >500 mg/dL White blood cell (WBC) count Ordered By: Safia Ruelas on 09-17-2024 WBC (Bld) [#/Vol] 9.6 10*3/uL 4.4-11.0 [facility] Absolute lymphocyte countOrd ered By: Safia Ruelas on 09-10-2024 Lymphocytes Auto (Unsp spec) [#/Vol] 2.11 10*3/uL 0.83-4.51 [facility] Absolute neutrophil countOrd ered By: Safia Ruelas on 09-10-2024 Neutrophils (Bld) [#/Vol] 8.1 10*3/uL High 2.0-7.7 [facility] Anion gap in Serum or Plasma Ordered By: Safia Ruelas on 09-10-2024 Anion gap [Moles/Vol] 13 mmol/L 5-15 [facility] Automated lymphocyte count a s percentage of total leukocytesOrdered By: Safia Ruelas on 09-10-2024 Lymphocytes/100 WBC Auto (Unsp spec) 17.9 % Low 19-41 [facility] BUN/creatinine ratioOrdered By: Safia Ruelas on 09-10-2024 Urea nitrogen/Creatinine [Mass ratio] 29.1 mg/mg High 10-20 [facility] Basophil percentageOrdered B y: Safia Ruelas on 09-10-2024 Basophils/100 WBC (Bld) 0.3 % 0-1 [facility] Bilirubin, totalOrdered By: Safia Ruelas on 09-10-2024 Bilirubin [Mass/Vol] 0.55 mg/dL 0.00-1.30 [facility] Carbon dioxide, total [Moles /volume] in Central venous bloodOrdered By: Safia Ruelas on 09-10-2024 CO2 [Moles/Vol] 23.6 mmol/L 21.0-32.0 [facility] Chloride assayOrdered By: Balbir Ruelas on 09-10-2024 Chloride [Moles/Vol] 97 mmol/L Low 98-108 [facility] Eosinophil percentageOrdered By: sherry Ruelas 09-10-2024 Eosinophils/100 WBC (Bld) 0.5 % 0-5 [facility] Erythrocyte distribution wid th ratioOrdered By: sherry Ruelas on 09-10-2024 Erythrocyte distribution width (RBC) [Ratio] 13.4 % 11.6-14.6 [facility] Erythrocyte distribution wid th standard deviationOrdered By: jean mariemontereyskye Ruelas on 09-10-2024 Erythrocyte distribution width (RBC) [Ratio] 45.2 fl High 35.1-43.9 [facility] Glomerular filtration rate ( GFR) estimation/1.73 sq m using serum, plasma, or whole bOrdered By: Safia Cheoquyen on 09-10-2024 GFR/1.73 sq M.predicted among non-blacks MDRD (S/P/Bld) [Vol rate/Area] 59 mL/min/{1.73_m2} Low >60 [facility] Comment on above: mL/min/1.73m2 CKD-EP I Creatinine Equation (2020) Hematocrit Auto (Bld) [Volum e fraction]Ordered By: [facility] Cheobonim[facility]anie 09-10-2024 Hematocrit (Bld) [Volume fraction] 41.8 % 37-47 [facility] Hemoglobin measurementOrdere d By: Safia Ruelas on 09-10-2024 Hemoglobin (Bld) [Mass/Vol] 13.4 g/dL 12.0-15.0 [facility] Immature granulocytes/100 WB C Auto (Bld)Ordered By: Safia Cheobonimelanie 09-10-2024 Immature granulocytes/100 WBC (Bld) 0.800 % 0.0-0.9 [facility] Comment on above: IG% - Immature Granu locytes (promyelocytes, myelocytes and metamyelocytes) > 1% indicates that a LEFT SHIFT is Present. Laboratory - Chemistry and C hemistry - challengeOrdered By: Safia Ruelas on 09-10-2024 AST [Catalytic activity/Vol] 21 U/L <32 [facility] MCV (mean corpuscular volume ) determinationOrdered By: Safia Ruelas on 09-10-2024 MCV (RBC) [Entitic vol] 92.5 fL 81-99 [facility] Mean corpuscular hemoglobin (MCH) determinationOrdered By: Safia Ruelas on 09-10-2024 MCH (RBC) [Entitic mass] 29.6 pg 27.0-32.0 [facility] Mean corpuscular hemoglobin concentration (MCHC) determinationOrdered By: Safia Ruelas on 09-10-2024 MCHC (RBC) [Mass/Vol] 32.1 g/dL 32-36 [facility] Mean platelet volume determi nationOrdered By: Safia Ruelas on 09-10-2024 Platelet mean volume (Bld) [Entitic vol] 12.6 fL High 6.2-12.0 [facility] Monocyte percentageOrdered B y: Safia Ruelas on 09-10-2024 Monocytes/100 WBC (Bld) 12.3 % High 0-10 [facility] Neutrophil percentageOrdered By: sherry Ruelas on 09-10-2024 Neutrophils/100 WBC (Bld) 68.2 % 47-70 [facility] No Panel InformationOrdered By: Safia Ruelas on 09-10-2024 21 U/L <32 [facility] Nucleated red blood cell per centageOrdered By: Safia Ruelas on 09-10-2024 Nucleated RBC/100 WBC (Bld) [Ratio] 0 % 0-5 [facility] Platelet countOrdered By: Balbir Ruelas on 09-10-2024 Platelets (Bld) [#/Vol] 190 10*3/uL 150-450 [facility] Potassium measurement (mass/ volume)Ordered By: Safia Ruelas on 09-10-2024 Potassium (Unsp spec) [Mass/Vol] 4.3 mmol/L 3.3-5.1 [facility] RBC Auto (Bld) [#/Vol]Ordere d By: Safia Ruelas on 09-10-2024 RBC (Bld) [#/Vol] 4.52 10*6/uL 4.2-5.4 [facility] Serum creatinine measurement (mass/volume)Ordered By: Safia Ruelas on 09-10-2024 Creatinine [Mass/Vol] 0.98 mg/dL 0.70-1.20 [facility] Serum globulin measurementOr dered By: Safia Ruelas on 09-10-2024 Globulin (S) [Mass/Vol] 3.3 g/dL 2.2-4.2 [facility] Serum glucose measurement (m ass/volume)Ordered By: Safia Ruelas on 09-10-2024 Glucose [Mass/Vol] 181 mg/dL High 70-99 [facility] Serum or plasma alanine raymundo otransferase (ALT) measurementOrdered By: Safia Ruelas on 09-10-2024 ALT [Catalytic activity/Vol] 26 U/L <35 [facility] Serum or plasma albumin dayna urement (mass/volume)Ordered By: Safia Ruelas on 09-10-2024 Albumin [Mass/Vol] 3.4 g/dL 3.4-4.8 [facility] Serum or plasma albumin/glob ulin mass ratioOrdered By: Safia Ruelas 09-10-2024 Albumin/Globulin [Mass ratio] 1.0 {ratio} 0.9-2.4 [facility] Serum or plasma alkaline hannah sphatase measurementOrdered By: Safia Ruelas on 09-10-2024 ALP [Catalytic activity/Vol] 114 U/L High 35-104 [facility] Serum or plasma calcium dayna urement (mass/volume)Ordered By: Safia Ruleas 09-10-2024 Calcium [Mass/Vol] 9.3 mg/dL 7.6-11.0 [facility] Serum or plasma urea nitroge n measurement (mass/volume)Ordered By: Safia Ruelas 09-10-2024 Urea nitrogen [Mass/Vol] 29 mg/dL High 4-19 [facility] Sodium levelOrdered By: Leonides Ruelas on 09-10-2024 Sodium [Moles/Vol] 133 mmol/L 133-145 [facility] Total proteinOrdered By: Augusto Ruelas on 09-10-2024 Protein [Mass/Vol] 6.7 g/dL 5.9-8.4 [facility] White blood cell (WBC) count Ordered By: Safia Cheoquyen on 09-10-2024 WBC (Bld) [#/Vol] 11.8 10*3/uL High 4.4-11.0 [facility] LABORATORYOrdered By: Abigail Smith on 09-09-2024 Glucose [Mass/Vol] 212 mg/dL High 82 - 115 mg/dL [facility] Work Phone: Glucose [Mass/Vol] 226 mg/dL High 82 - 115 mg/dL [facility] Work Phone: LABORATORYOrdered By: Zoila Zarco on 09-08-2024 Glucose [Mass/Vol] 149 mg/dL High 82 - 115 mg/dL [facility] Work Phone: LABORATORYOrdered By: Rob Palmer on 09-08-2024 Blood Glucose Testing Reason Routine (09/08/24 6:16 PM) [employer] Work Phone: Blood Glucose Testing Reason Routine (09/08/24 11:58 AM) [employer] Work Phone: LABORATORYOrdered By: Rob Palmer on 09-07-2024 Blood Glucose Testing Reason Routine (09/07/24 4:46 PM) [employer] Work Phone: .Auto Diffon 09-03-2024 Basophil, Absolute 0.1 10 3/mcL Normal 0.0-0.3 [facility] Comment on above: Performed By: #### A DIFF, CBC, ANEU, GFR, BMP #### [facility] [address] [place] [address] Basophils/100 WBC (Bld) 1.0 % Normal 0.0-2.5 [facility] Comment on above: Performed By: #### A DIFF, CBC, ANEU, GFR, BMP #### [address] [address] Eosinophil, Absolute 0.2 10 3/mcL Normal 0.0-0.7 [facility] Comment on above: Performed By: #### A DIFF, CBC, ANEU, GFR, BMP #### [address] [address] Eosinophils/100 WBC (Bld) 3.2 % Normal 0.0-6.0 [facility] Comment on above: Performed By: #### A DIFF, CBC, ANEU, GFR, BMP #### [address] [address] Lymphocyte, Absolute 2.0 10 3/mcL Normal 0.9-4.3 [facility] Comment on above: Performed By: #### A DIFF, CBC, ANEU, GFR, BMP #### [address] [address] Lymphocytes/100 WBC (Bld) 26.6 % Normal 20.0-40.0 [facility] Comment on above: Performed By: #### A DIFF, CBC, ANEU, GFR, BMP #### [address] [address] Monocyte, Absolute 0.7 10 3/mcL Normal 0.1-1.4 [facility] Comment on above: Performed By: #### A DIFF, CBC, ANEU, GFR, BMP #### [address] [address] Monocytes/100 WBC (Bld) 9.7 % Normal 2.0-13.0 [facility] Comment on above: Performed By: #### A DIFF, CBC, ANEU, GFR, BMP #### [address] [address] Neutrophils/100 WBC (Bld) 59.5 % Normal 50.0-75.0 [facility] Comment on above: Performed By: #### A DIFF, CBC, ANEU, GFR, BMP #### [address] [address] .GFRon 09-03-2024 Estimated Glomerular Filtration Rate 57 ml/min/1.73sqm Normal [facility] MA[facility] Comment on above: Result Comment: [...] A DIFF, CBC, ANEU, GFR, BMP #### [place] [address] .NEUABSon 09-03-2024 Neutrophil, Absolute 4.5 10 3/mcL Normal 2.3-8.1 [facility] Comment on above: Performed By: #### A DIFF, CBC, ANEU, GFR, BMP #### [place] [address] B12on 09-03-2024 Cobalamin (Vitamin B12) [Mass/Vol] 834 pg/mL Normal 211-911 [facility] Comment on above: Performed By: #### A DIFF, CBC, ANEU, GFR, BMP #### [place] [address] CBCon 09-03-2024 Erythrocyte distribution width (RBC) [Ratio] 14.7 % Normal 11.5-15.5 [facility] Comment on above: Performed By: #### A DIFF, CBC, ANEU, GFR, BMP #### [place] [address] Hematocrit (Bld) [Volume fraction] 39.7 % Normal 34.0-46.0 [facility] Comment on above: Performed By: #### A DIFF, CBC, ANEU, GFR, BMP #### [place] [address] Hgb 13.2 G/dL Normal 12.0-16.0 [facility] Comment on above: Performed By: #### A DIFF, CBC, ANEU, GFR, BMP #### [place] [address] MCH (RBC) [Entitic mass] 30.6 pg Normal 27.0-33.0 [facility] Comment on above: Performed By: #### A DIFF, CBC, ANEU, GFR, BMP #### [place] [address] MCHC 33.3 G/dL Normal 32.0-36.0 [facility] Comment on above: Performed By: #### A DIFF, CBC, ANEU, GFR, BMP #### [place] [address] MCV (RBC) [Entitic vol] 91.9 fL Normal 80.0-99.0 [facility] Comment on above: Performed By: #### A DIFF, CBC, ANEU, GFR, BMP #### [place] [address] Platelet 228 10 3/mcL Normal 150-450 [facility] Comment on above: Performed By: #### A DIFF, CBC, ANEU, GFR, BMP #### [place] [address] Platelet mean volume (Bld) [Entitic vol] 10.1 fL Normal 6.6-10.5 [facility] Comment on above: Performed By: #### A DIFF, CBC, ANEU, GFR, BMP #### [place] [address] RBC 4.32 10 6/mcL Normal 4.10-5.30 [facility] Comment on above: Performed By: #### A DIFF, CBC, ANEU, GFR, BMP #### [place] [address] WBC 7.6 10 3/mcL Normal 4.5-10.8 [facility] Comment on above: Performed By: #### A DIFF, CBC, ANEU, GFR, BMP #### [place] [id number] CMPon 04-22-2025 Albumin Level 3.0 G/dL Low 3.2-4.8 [facility] Comment on above: Performed By: #### A DIFF, CBC, ANEU, GFR, BMP #### [place] [id number] Albumin/Globulin [Mass ratio] 0.9 {ratio} Normal 0.9-1.6 [facility] Comment on above: Performed By: #### A DIFF, CBC, ANEU, GFR, BMP #### [place] [id number] ALP [Catalytic activity/Vol] 115 U/L Normal 38-126 [facility] Comment on above: Performed By: #### A DIFF, CBC, ANEU, GFR, BMP #### [place] [address] ALT [Catalytic activity/Vol] 37 U/L Normal 10-49 [facility] Comment on above: Performed By: #### A DIFF, CBC, ANEU, GFR, BMP #### [place] [id number] AST [Catalytic activity/Vol] 31 U/L Normal 8-34 [facility] Comment on above: Performed By: #### A DIFF, CBC, ANEU, GFR, BMP #### [place] [address] Bili Total 0.50 mg/dL Normal 0.20-1.20 [facility] Comment on above: Result Comment: Use of this assay is not recommended for patients undergoing treatment with eltrombopag due to the potential for falsely elevated results. Performed By: #### A DIFF, CBC, ANEU, GFR, BMP #### [place] [address] BUN/Creatinine Ratio 29.7 ratio High 10.0-22.0 [facility] Comment on above: Performed By: #### A DIFF, CBC, ANEU, GFR, BMP #### [place] [id number] Calcium [Mass/Vol] 9.6 mg/dL Normal 8.7-10.4 [facility] MA[facility] Comment on above: Performed By: #### A DIFF, CBC, ANEU, GFR, BMP #### [address] [address] Chloride [Moles/Vol] 101 mmol/L Normal 98-110 [facility] Comment on above: Performed By: #### A DIFF, CBC, ANEU, GFR, BMP #### [address] [address] CO2 [Moles/Vol] 27 mmol/L Normal 22-32 [facility] Comment on above: Performed By: #### A DIFF, CBC, ANEU, GFR, BMP #### [address] [address] Creatinine [Mass/Vol] 1.01 mg/dL Normal 0.50-1.20 [facility] MA[facility] Comment on above: Result Comment: Test ing performed on Isowalk analyzer using enzymatic creatinine methodology. Performed By: #### A DIFF, CBC, ANEU, GFR, BMP #### [place] [id number] Electrolyte Balance 10.0 mEq/L Normal 4.0-15.0 [facility] MAIN Comment on above: Performed By: #### A DIFF, CBC, ANEU, GFR, BMP #### [address] [address] Globulin 3.4 G/dL Normal 1.5-3.8 [facility] MA[facility] Comment on above: Performed By: #### A DIFF, CBC, ANEU, GFR, BMP #### [address] [address] Glucose [Mass/Vol] 187 mg/dL High 82-115 [facility] MAIN Comment on above: Performed By: #### A DIFF, CBC, ANEU, GFR, BMP #### [address] [address] Potassium [Moles/Vol] 4.6 mmol/L Normal 3.5-5.0 [facility] MA[facility] Comment on above: Performed By: #### A DIFF, CBC, ANEU, GFR, BMP #### [address] [address] Sodium [Moles/Vol] 138 mmol/L Normal 136-145 [facility] MA[facility] Comment on above: Performed By: #### A DIFF, CBC, ANEU, GFR, BMP #### [facility] [address] [place] [address] Total Protein 6.4 G/dL Normal 5.7-8.2 [facility] Comment on above: Performed By: #### A DIFF, CBC, ANEU, GFR, BMP #### [facility] [address] [place] [address] Urea nitrogen [Mass/Vol] 30.0 mg/dL High 8.0-22.0 [facility] Comment on above: Performed By: #### A DIFF, CBC, ANEU, GFR, BMP #### [address] [address] LABORATORYOrdered By: Ann Carrillo on 09-03-2024 Glucose [Mass/Vol] 270 mg/dL [facility] Work Phone: LABORATORYOrdered By: SYSTEM SYSTEM on [...] above: Interpretive Data: T esting performed on Isowalk analyzer using enzymatic creatinine methodology. Electrolyte Balance [...] TSHon 09-03-2024 TSH 3.920 mIU/mL Normal 0.550-4.780 [facility] MA[facility] Comment on above: Performed By: #### A DIFF, CBC, ANEU, GFR, BMP #### [place] [address] CT HEAD OR BRAIN W/O CONTRAS Ton [...] 09/02/2024 3:10:44 PM Ordering Provider: SILVINO HA [facility] MAIN [place] 08-30-2024 RANDEE Telephone (FAMAkinWS) ARMANDLINDSAY Veronica ([id number]) 1945 F Date Time Provider Department 08/30/24 [facility] During your visit today, we recorded the following information about you: Jaiden Paulino RN 08/30/2024 9:11 AM Signed Marya- [facility] reports patient was in [facility] with dx: stroke, and transferred to [facility]. [facility] with [facility] SN PT OT [facility]. Asking if pcp agreeable to follow for C. Please phone Marya with verbal: [phone] Mj Glover APRN.GARRETT 08/30/2024 9:19 AM Signed Please let know that Dr. Caruso's team will follow orders. Okay to proceed. Mj Glover APRN.Fouzia Reynoso LPN 08/30/2024 10:09 AM Signed Marya with [facility] notified. Allergies As of Date: 08/30/2024 Noted Allergy Reaction BENZOCAINE 07/08/2005 2 - Rash COCAINE 05/28/2008 Comments: Inverted T PERFUMES 07/08/2005 12 - Shortness of Breath Comments: coughes and chokes SULFA (SULFONAMIDE ANTIBIOTICS) 07/08/2005 5 - Intolerance Date Reviewed: 06/26/2024 Reviewed by: Bret Arambula LPN - Fully Assessed Reason for Visit: [facility] requesting verbal agree to follow [Other] [...] daily with breakfast. - blood sugar diagnostic (ContextoolTOUCH ULTRA TEST) test strip Test Blood Sugar [...] Status:Closed by FOUZIA MILLER on 08/30/24 Normal [facility] .Auto Diffon 08-26-2024 Basophil, Absolute 0.1 10 3/mcL Normal 0.0-0.3 [facility] Comment on above: Performed By: #### A DIFF, CBC, ANEU, GFR, BMP #### [facility] [address] [place] [address] Basophils/100 WBC (Bld) 1.0 % Normal 0.0-2.5 [facility] MAIN Comment on above: Performed By: #### A DIFF, CBC, ANEU, GFR, BMP #### [address] [address] Eosinophil, Absolute 0.3 10 3/mcL Normal 0.0-0.7 [facility] MA[facility] Comment on above: Performed By: #### A DIFF, CBC, ANEU, GFR, BMP #### [address] [address] Eosinophils/100 WBC (Bld) 4.2 % Normal 0.0-6.0 [facility] MA[facility] Comment on above: Performed By: #### A DIFF, CBC, ANEU, GFR, BMP #### [address] [address] Lymphocyte, Absolute 2.2 10 3/mcL Normal 0.9-4.3 [facility] Comment on above: Performed By: #### A DIFF, CBC, ANEU, GFR, BMP #### [address] [address] Lymphocytes/100 WBC (Bld) 26.3 % Normal 20.0-40.0 [facility] Comment on above: Performed By: #### A DIFF, CBC, ANEU, GFR, BMP #### [address] [address] Monocyte, Absolute 0.9 10 3/mcL Normal 0.1-1.4 [facility] Comment on above: Performed By: #### A DIFF, CBC, ANEU, GFR, BMP #### [address] [address] Monocytes/100 WBC (Bld) 11.4 % Normal 2.0-13.0 [facility] Comment on above: Performed By: #### A DIFF, CBC, ANEU, GFR, BMP #### [address] [address] Neutrophils/100 WBC (Bld) 57.1 % Normal 50.0-75.0 [facility] Comment on above: Performed By: #### A DIFF, CBC, ANEU, GFR, BMP #### [address] [address] .GFRon 08-26-2024 Estimated Glomerular Filtration Rate 59 ml/min/1.73sqm Normal [facility] MAIN Comment on above: Result Comment: [...] A DIFF, CBC, ANEU, GFR, BMP #### [address] [address] .NEUABSon 08-26-2024 Neutrophil, Absolute 4.7 10 3/mcL Normal 2.3-8.1 [facility] Comment on above: Performed By: #### A DIFF, CBC, ANEU, GFR, BMP #### [address] [address] BMPon 08-26-2024 BUN/Creatinine Ratio 35.1 ratio High 10.0-22.0 [facility] Comment on above: Performed By: #### A DIFF, CBC, ANEU, GFR, BMP #### [address] [address] Calcium [Mass/Vol] 9.8 mg/dL Normal 8.7-10.4 [facility] MAIN Comment on above: Performed By: #### A DIFF, CBC, ANEU, GFR, BMP #### [address] [address] Chloride [Moles/Vol] 98 mmol/L Normal 98-110 [facility] MA[facility] Comment on above: Performed By: #### A DIFF, CBC, ANEU, GFR, BMP #### [address] [address] CO2 [Moles/Vol] 25 mmol/L Normal 22-32 [facility] MAIN Comment on above: Performed By: #### A DIFF, CBC, ANEU, GFR, BMP #### [place] [id number] Creatinine [Mass/Vol] 0.97 mg/dL Normal 0.50-1.20 [facility] MAIN Comment on above: Result Comment: Test ing performed on Isowalk analyzer using enzymatic creatinine methodology. Performed By: #### A DIFF, CBC, ANEU, GFR, BMP #### [place] [address] Electrolyte Balance 12.0 mEq/L Normal 4.0-15.0 [facility] MAIN Comment on above: Performed By: #### A DIFF, CBC, ANEU, GFR, BMP #### [place] [address] Glucose [Mass/Vol] 160 mg/dL High 82-115 [facility] MAIN Comment on above: Performed By: #### A DIFF, CBC, ANEU, GFR, BMP #### [place] [address] Potassium [Moles/Vol] 4.7 mmol/L Normal 3.5-5.0 [facility] MAIN Comment on above: Result Comment: Spec imen slightly hemolyzed. Performed By: #### A DIFF, CBC, ANEU, GFR, BMP #### [place] [address] Sodium [Moles/Vol] 135 mmol/L Low 136-145 [facility] MAIN Comment on above: Performed By: #### A DIFF, CBC, ANEU, GFR, BMP #### [place] [address] Urea nitrogen [Mass/Vol] 34.0 mg/dL High 8.0-22.0 [facility] MA[facility] Comment on above: Performed By: #### A DIFF, CBC, ANEU, GFR, BMP #### [place] [address] CBCon 08-26-2024 Erythrocyte distribution width (RBC) [Ratio] 14.0 % Normal 11.5-15.5 [facility] MA[facility] Comment on above: Performed By: #### A DIFF, CBC, ANEU, GFR, BMP #### [facility] [address] [place], [place] [address] Hematocrit (Bld) [Volume fraction] 41.0 % Normal 34.0-46.0 [facility] MAIN Comment on above: Performed By: #### A DIFF, CBC, ANEU, GFR, BMP #### [place] [address] Hgb 13.4 G/dL Normal 12.0-16.0 [facility] MA[facility] Comment on above: Performed By: #### A DIFF, CBC, ANEU, GFR, BMP #### [place] [address] MCH (RBC) [Entitic mass] 30.0 pg Normal 27.0-33.0 [facility] MA[facility] Comment on above: Performed By: #### A DIFF, CBC, ANEU, GFR, BMP #### [place] [address] MCHC 32.7 G/dL Normal 32.0-36.0 [facility] MAIN Comment on above: Performed By: #### A DIFF, CBC, ANEU, GFR, BMP #### [place] [address] MCV (RBC) [Entitic vol] 91.9 fL Normal 80.0-99.0 [facility] MAIN Comment on above: Performed By: #### A DIFF, CBC, ANEU, GFR, BMP #### [place] [address] Platelet 297 10 3/mcL Normal 150-450 [facility] MAIN Comment on above: Performed By: #### A DIFF, CBC, ANEU, GFR, BMP #### [place] [address] Platelet mean volume (Bld) [Entitic vol] 11.0 fL High 6.6-10.5 [facility] MA[facility] Comment on above: Performed By: #### A DIFF, CBC, ANEU, GFR, BMP #### [place] [address] RBC 4.46 10 6/mcL Normal 4.10-5.30 [facility] MA[facility] Comment on above: Performed By: #### A DIFF, CBC, ANEU, GFR, BMP #### [address] [place], [place] [address] WBC 8.3 10 3/mcL Normal 4.5-10.8 [facility] MAIN Comment on above: Performed By: #### A DIFF, CBC, ANEU, GFR, BMP #### [address] [address] LABORATORYOrdered By: SYSTEM SYSTEM on 08-26-2024 Basophils [...] above: Interpretive Data: T esting performed on Isowalk analyzer using enzymatic creatinine methodology. Electrolyte Balance [...] XR HAND AND WRIST 6 VIEWS LE [facility] 08-25-2024 XR HAND AND WRIST 6 [...] 08/25/2024 2:27:26 PM Ordering Provider: JACKLYN LINDSEY [facility] MAIN XR HUMERUS MINIMUM 2 VIEWS [facility] 08-25-2024 XR HUMERUS MINIMUM 2 VIEWS [...] Sign Date: 08/25/2024 2:26:11 PM Ordering Provider: [facility] MAIN XR SHOULDER MINIMUM 2 VIEWS LEFTon [...] the resident's findings and interpretation. Interpreted by: Jaamr Dunne DO Preliminary Report By: Padilla Barrera Electronically signed By Jamar Dunne DO Dictated Date: 08/25/2024 1:54:13 PM Prelim Date: 08/25/2024 1:57:23 PM Sign Date: 08/25/2024 2:26:45 PM Ordering Provider: [facility] MAIN LABORATORYOrdered By: Kala lux on 08-23-2024 Glucose [Mass/Vol] 278 mg/dL [facility] Work Phone: LABORATORYOrdered By: Kala lux on 08-22-2024 Glucose [Mass/Vol] 320 mg/dL [facility] Work Phone: A1Con 08-21-2024 Glucose [Mass/Vol] 194 mg/dL [facility] MAIN Comment on above: Result Comment: Nancy mated Average Glucose calculated by equation ((28.7xA1C)-46.7) Estimated average glucose (eAG) is a calculated value from Hemoglobin A1C and is branch customer service representative of the average blood glucose level in the last 2-3 month period. Normal range: less than 114 mg/dL Performed By: #### A 1C #### [place] [address] HbA1c (Bld) [Mass fraction] 8.4 % High 4.0-6.0 [facility] MAIN Comment on above: Performed By: #### A 1C #### [address] [address] LABORATORYOrdered By: SYSTEM SYSTEM on 08-21-2024 Glucose [Mass/Vol] 194 mg/dL Invalid Interpretation Code Auto Chem SS Comment on above: Interpretive Data: E stimated average glucose (eAG) is a calculated value from Hemoglobin A1C and is branch customer service representative of the average blood glucose level in the last 2-3 month period. Normal range: less than 114 mg/dL HbA1c (Bld) [Mass fraction] 8.4 % High 4.0 - 6.0 % Auto Chem SS .Auto Diffon 08-20-2024 Basophil, Absolute 0.1 10 3/mcL Normal 0.0-0.3 [facility] Comment on above: Performed By: #### B MP, ADIFF, CBC, GFR, ANEU #### [address] [address] Basophils/100 WBC (Bld) 1.1 % Normal 0.0-2.5 [facility] Comment on above: Performed By: #### B MP, ADIFF, CBC, GFR, ANEU #### [address] [address] Eosinophil, Absolute 0.3 10 3/mcL Normal 0.0-0.7 [facility] Comment on above: Performed By: #### B MP, ADIFF, CBC, GFR, ANEU #### [address] [address] Eosinophils/100 WBC (Bld) 3.6 % Normal 0.0-6.0 [facility] MAIN Comment on above: Performed By: #### B MP, ADIFF, CBC, GFR, ANEU #### [address] [address] Lymphocyte, Absolute 1.7 10 3/mcL Normal 0.9-4.3 [facility] Comment on above: Performed By: #### B MP, ADIFF, CBC, GFR, ANEU #### [address] [address] Lymphocytes/100 WBC (Bld) 20.8 % Normal 20.0-40.0 [facility]IN Comment on above: Performed By: #### B MP, ADIFF, CBC, GFR, ANEU #### [address] [address] Monocyte, Absolute 0.9 10 3/mcL Normal 0.1-1.4 [facility] Comment on above: Performed By: #### B MP, ADIFF, CBC, GFR, ANEU #### [address] [address] Monocytes/100 WBC (Bld) 11.4 % Normal 2.0-13.0 [facility] Comment on above: Performed By: #### B MP, ADIFF, CBC, GFR, ANEU #### [address] [address] Neutrophils/100 WBC (Bld) 63.1 % Normal 50.0-75.0 [facility] MAIN Comment on above: Performed By: #### B MP, ADIFF, CBC, GFR, ANEU #### [address] [address] .GFRon 08-20-2024 Estimated Glomerular Filtration Rate 55 ml/min/1.73sqm Normal [facility] MAIN Comment on above: Result Comment: [...] A DIFF, CBC, ANEU, GFR, BMP #### [address] [address] .NEUABSon 08-20-2024 Neutrophil, Absolute 5.1 10 3/mcL Normal 2.3-8.1 [facility] Comment on above: Performed By: #### B MP, ADIFF, CBC, GFR, ANEU #### [address] [address] BMPon 08-20-2024 BUN/Creatinine Ratio 29.8 ratio High 10.0-22.0 [facility] Comment on above: Performed By: #### B MP, ADIFF, CBC, GFR, ANEU #### [place] [id number] Calcium [Mass/Vol] 9.8 mg/dL Normal 8.7-10.4 [facility] MAIN Comment on above: Performed By: #### B MP, ADIFF, CBC, GFR, ANEU #### [place] [id number] Chloride [Moles/Vol] 95 mmol/L Low 98-110 [facility] MA[facility] Comment on above: Performed By: #### B MP, ADIFF, CBC, GFR, ANEU #### [place] [id number] CO2 [Moles/Vol] 34 mmol/L High 22-32 [facility] MAIN Comment on above: Performed By: #### B MP, ADIFF, CBC, GFR, ANEU #### [place] [id number] Creatinine [Mass/Vol] 1.04 mg/dL Normal 0.50-1.20 [facility] MAIN Comment on above: Result Comment: Test ing performed on Isowalk analyzer using enzymatic creatinine methodology. Performed By: #### B MP, ADIFF, CBC, GFR, ANEU #### [place] [id number] Electrolyte Balance 5.0 mEq/L Normal 4.0-15.0 [facility] MAIN Comment on above: Performed By: #### B MP, ADIFF, CBC, GFR, ANEU #### [place] [id number] Glucose [Mass/Vol] 244 mg/dL High 82-115 [facility] MAIN Comment on above: Performed By: #### B MP, ADIFF, CBC, GFR, ANEU #### [place] [id number] Potassium [Moles/Vol] 4.8 mmol/L Normal 3.5-5.0 [facility] MAIN Comment on above: Result Comment: Spec imen slightly hemolyzed. Performed By: #### B MP, ADIFF, CBC, GFR, ANEU #### [place] [address] Sodium [Moles/Vol] 134 mmol/L Low 136-145 [facility] MAIN Comment on above: Performed By: #### B MP, ADIFF, CBC, GFR, ANEU #### [place] [address] Urea nitrogen [Mass/Vol] 31.0 mg/dL High 8.0-22.0 [facility] MAIN Comment on above: Performed By: #### B MP, ADIFF, CBC, GFR, ANEU #### [place] [address] CBCon 08-20-2024 Erythrocyte distribution width (RBC) [Ratio] 14.0 % Normal 11.5-15.5 [facility] MAIN Comment on above: Performed By: #### B MP, ADIFF, CBC, GFR, ANEU #### [place] [address] Hematocrit (Bld) [Volume fraction] 41.9 % Normal 34.0-46.0 [facility] MAIN Comment on above: Performed By: #### B MP, ADIFF, CBC, GFR, ANEU #### [place] [address] Hgb 13.6 G/dL Normal 12.0-16.0 [facility] MAIN Comment on above: Performed By: #### B MP, ADIFF, CBC, GFR, ANEU #### [place] [address] MCH (RBC) [Entitic mass] 29.7 pg Normal 27.0-33.0 [facility] MAIN Comment on above: Performed By: #### B MP, ADIFF, CBC, GFR, ANEU #### [place] [address] MCHC 32.4 G/dL Normal 32.0-36.0 [facility] MAIN Comment on above: Performed By: #### B MP, ADIFF, CBC, GFR, ANEU #### [place] [address] MCV (RBC) [Entitic vol] 91.5 fL Normal 80.0-99.0 [facility] MAIN Comment on above: Performed By: #### B MP, ADIFF, CBC, GFR, ANEU #### [place] [address] Platelet 301 10 3/mcL Normal 150-450 [facility] MAIN Comment on above: Performed By: #### B MP, ADIFF, CBC, GFR, ANEU #### [place] [address] Platelet mean volume (Bld) [Entitic vol] 11.0 fL High 6.6-10.5 [facility] MAIN Comment on above: Performed By: #### B MP, ADIFF, CBC, GFR, ANEU #### [place] [address] RBC 4.58 10 6/mcL Normal 4.10-5.30 [facility] MAIN Comment on above: Performed By: #### B MP, ADIFF, CBC, GFR, ANEU #### [place] [address] WBC 8.1 10 3/mcL Normal 4.5-10.8 [facility] MAIN Comment on above: Performed By: #### B MP, ADIFF, CBC, GFR, ANEU #### [place] [address] LABORATORYOrdered By: SYSTEM SYSTEM on 08-20-2024 Basophils [...] above: Interpretive Data: T esting performed on Isowalk analyzer using enzymatic creatinine methodology. Electrolyte Balance [...] 20.8 % Normal 20.0 - 40.0 % Workflow SS MCH (RBC) [Entitic mass] 29.7 pg Normal 27.0 - 33.0 pg Workflow SS MCHC 32.4 G/dL Normal 32.0 - 36.0 G/dL Workflow SS MCV (RBC) [Entitic vol] 91.5 [...] 08/18/2024 3:14:15 PM Ordering Provider: NANDO Anderson [facility] MAIN .Auto Diffon 08-16-2024 Basophil, Absolute 0.1 10 3/mcL Normal 0.0-0.3 [facility] MA[facility] Comment on above: Performed By: #### A DIFF, CBC, ANEU, GFR, BMP #### [address] [address] Basophils/100 WBC (Bld) 0.7 % Normal 0.0-2.5 [facility] MAIN Comment on above: Performed By: #### A DIFF, CBC, ANEU, GFR, BMP #### [address] [address] Eosinophil, Absolute 0.3 10 3/mcL Normal 0.0-0.7 [facility] MA[facility] Comment on above: Performed By: #### A DIFF, CBC, ANEU, GFR, BMP #### [address] [address] Eosinophils/100 WBC (Bld) 2.1 % Normal 0.0-6.0 [facility] MAIN Comment on above: Performed By: #### A DIFF, CBC, ANEU, GFR, BMP #### [address] [address] Lymphocyte, Absolute 1.9 10 3/mcL Normal 0.9-4.3 [facility] MA[facility] Comment on above: Performed By: #### A DIFF, CBC, ANEU, GFR, BMP #### [address] [address] Lymphocytes/100 WBC (Bld) 14.8 % Low 20.0-40.0 [facility] MAIN Comment on above: Performed By: #### A DIFF, CBC, ANEU, GFR, BMP #### [address] [address] Monocyte, Absolute 1.2 10 3/mcL Normal 0.1-1.4 [facility] MA[facility] Comment on above: Performed By: #### A DIFF, CBC, ANEU, GFR, BMP #### [address] [address] Monocytes/100 WBC (Bld) 9.8 % Normal 2.0-13.0 [facility] MAIN Comment on above: Performed By: #### A DIFF, CBC, ANEU, GFR, BMP #### [address] [address] Neutrophils/100 WBC (Bld) 72.6 % Normal 50.0-75.0 [facility] MAIN Comment on above: Performed By: #### A DIFF, CBC, ANEU, GFR, BMP #### [address] [address] .GFRon 08-16-2024 Estimated Glomerular Filtration Rate 58 ml/min/1.73sqm Normal [facility] MAIN Comment on above: Result Comment: [...] A DIFF, CBC, ANEU, GFR, BMP #### [address] [address] .NEUABSon 08-16-2024 Neutrophil, Absolute 9.2 10 3/mcL High 2.3-8.1 [facility] Comment on above: Performed By: #### A DIFF, CBC, ANEU, GFR, BMP #### [address] [address] BMPon 08-16-2024 BUN/Creatinine Ratio 34.3 ratio High 10.0-22.0 [facility] MA[facility] Comment on above: Performed By: #### A DIFF, CBC, ANEU, GFR, BMP #### [address] [address] Calcium [Mass/Vol] 9.0 mg/dL Normal 8.7-10.4 [facility] MAIN Comment on above: Performed By: #### A DIFF, CBC, ANEU, GFR, BMP #### [address] [address] Chloride [Moles/Vol] 100 mmol/L Normal 98-110 [facility] MA[facility] Comment on above: Performed By: #### A DIFF, CBC, ANEU, GFR, BMP #### [address] [address] CO2 [Moles/Vol] 30 mmol/L Normal 22-32 [facility] MAIN Comment on above: Performed By: #### A DIFF, CBC, ANEU, GFR, BMP #### [address] [address] Creatinine [Mass/Vol] 0.99 mg/dL Normal 0.50-1.20 [facility] MAIN Comment on above: Result Comment: Test ing performed on Isowalk analyzer using enzymatic creatinine methodology. Performed By: #### A DIFF, CBC, ANEU, GFR, BMP #### [address] [address] Electrolyte Balance 5.0 mEq/L Normal 4.0-15.0 [facility] MAIN Comment on above: Performed By: #### A DIFF, CBC, ANEU, GFR, BMP #### [address] [address] Glucose [Mass/Vol] 259 mg/dL High 82-115 [facility] MAIN Comment on above: Performed By: #### A DIFF, CBC, ANEU, GFR, BMP #### [address] [address] Potassium [Moles/Vol] 5.0 mmol/L Normal 3.5-5.0 [facility] MAIN Comment on above: Performed By: #### A DIFF, CBC, ANEU, GFR, BMP #### [address] [address] Sodium [Moles/Vol] 135 mmol/L Low 136-145 [facility] MAIN Comment on above: Performed By: #### A DIFF, CBC, ANEU, GFR, BMP #### [place] [address] Urea nitrogen [Mass/Vol] 34.0 mg/dL High 8.0-22.0 [facility] MAIN Comment on above: Performed By: #### A DIFF, CBC, ANEU, GFR, BMP #### [place] [id number] CBCon 08-16-2024 Erythrocyte distribution width (RBC) [Ratio] 13.7 % Normal 11.5-15.5 [facility] MAIN Comment on above: Performed By: #### A DIFF, CBC, ANEU, GFR, BMP #### [place] [address] Hematocrit (Bld) [Volume fraction] 43.3 % Normal 34.0-46.0 [facility] MAIN Comment on above: Performed By: #### A DIFF, CBC, ANEU, GFR, BMP #### [place] [address] Hgb 13.9 G/dL Normal 12.0-16.0 [facility] MAIN Comment on above: Performed By: #### A DIFF, CBC, ANEU, GFR, BMP #### [place] [address] MCH (RBC) [Entitic mass] 30.0 pg Normal 27.0-33.0 [facility] MAIN Comment on above: Performed By: #### A DIFF, CBC, ANEU, GFR, BMP #### [place] [address] MCHC 32.1 G/dL Normal 32.0-36.0 [facility] MAIN Comment on above: Performed By: #### A DIFF, CBC, ANEU, GFR, BMP #### [place] [address] MCV (RBC) [Entitic vol] 93.6 fL Normal 80.0-99.0 [facility] MAIN Comment on above: Performed By: #### A DIFF, CBC, ANEU, GFR, BMP #### [place] [address] Platelet 230 10 3/mcL Normal 150-450 [facility] MAIN Comment on above: Performed By: #### A DIFF, CBC, ANEU, GFR, BMP #### [place] [id number] Platelet mean volume (Bld) [Entitic vol] 10.7 fL High 6.6-10.5 [facility] MAIN Comment on above: Performed By: #### A DIFF, CBC, ANEU, GFR, BMP #### [place] [id number] RBC 4.63 10 6/mcL Normal 4.10-5.30 [facility] MAIN Comment on above: Performed By: #### A DIFF, CBC, ANEU, GFR, BMP #### [place] [id number] WBC 12.7 10 3/mcL High 4.5-10.8 [facility] MAIN Comment on above: Performed By: #### A DIFF, CBC, ANEU, GFR, BMP #### [place] [address] LABORATORYOrdered By: Marily Panda on 08-16-2024 Blood Glucose Interventions Administered agent to decrease blood sugar (08/16/24 12:23 PM) cube19 Work Phone: Blood Glucose Interventions Retest (08/16/24 10:15 AM) cube19 Work Phone: Bacteria identified Cx Nom ( Bld)on 08-15-2024 Bacteria identified Cx Nom (Unsp spec) NO GROWTH DAY 5 OF 5 [facility] CARDIAC RHYTHMon 08-15-2024 [facility] CBC,PLATELETSon 08-15-2024 Erythrocyte distribution width (RBC) [Ratio] 13.4 % 10.8 - 14.9 % [facility] Hematocrit (Bld) [Volume fraction] 43.8 % 34.9 - 44.3 % [facility] Hemoglobin (Bld) [Mass/Vol] 13.5 g/dL 11.4 - 15.2 g/dL [facility] Interpretation and review of laboratory results Abnormal [facility] MCH (RBC) [Entitic mass] 28.9 pg 25.9 - 33.9 pg [facility] MCHC (RBC) [Mass/Vol] 30.8 g/dL Low 31.4 - 35.9 g/dL [facility] MCV (RBC) [Entitic vol] 93.8 fL 79.6 - 97.7 fL [facility] Platelet mean volume (Bld) [Entitic vol] 12 fL 8.5 - 12.2 fL [facility] Platelets (Bld) [#/Vol] 252 10*3/uL 150 - 393 K/uL [facility] RBC (Bld) [#/Vol] 4.67 10*6/uL [facility] WBC (Bld) [#/Vol] 11.94 10*3/uL High 3.99 - 11.19 K/uL [facility] Hematocrit (Bld) [Volume fraction] 43.8 % Normal 34.9-44.3 [facility] Comment on above: Performed By: #### X M #### [facility] (DEFAULT) [address] [place] [address] Hemoglobin (Bld) [Mass/Vol] 13.5 g/dL Normal 11.4-15.2 [facility] Comment on above: Performed By: #### X M #### [facility] (DEFAULT) [address] [place] [address] MCV (RBC) [Entitic vol] 93.8 fL Normal 79.6-97.7 [facility] Comment on above: Performed By: #### X M #### [facility] (DEFAULT) [address] [place] [address] Mean Cell Hgb 28.9 pg Normal 25.9-33.9 [facility] Comment on above: Performed By: #### X M #### [facility] (DEFAULT) [address] [place] [address] Mean Cell Hgb Conc 30.8 g/dL Low 31.4-35.9 [facility] Comment on above: Performed By: #### X M #### [facility] (DEFAULT) [address] [place] [address] Platelet mean volume (Bld) [Entitic vol] 12.0 fL Normal 8.5-12.2 [facility] Comment on above: Performed By: #### X M #### [facility] (DEFAULT) [address] [place] [address] Platelets (Bld) [#/Vol] 252 10*3/uL Normal 150-393 [facility] Comment on above: Performed By: #### X M #### [facility] (DEFAULT) [address] [place] [address] RBC (Bld) [#/Vol] 4.67 10*6/uL Normal 3.91-5.04 [facility] Comment on above: Performed By: #### X M #### [facility] (DEFAULT) [address] [place] [address] RBC Distribution 13.4 % Normal 10.8-14.9 [facility] Comment on above: Performed By: #### X M #### [facility] (DEFAULT) [address] [place] [address] WBC (Bld) [#/Vol] 11.94 10*3/uL High 3.99-11.19 [facility] Comment on above: Performed By: #### X M #### [facility] (DEFAULT) [address] [place] [address] CHEM 7 (LYTES,BUN,CREA,GLUC) on 08-15-2024 Anion gap [Moles/Vol] 16 mmol/L 7 - 17 mmol/L [facility] Chloride [Moles/Vol] 99 mmol/L 98 - 10 8 mmol/L [facility] CO2 [Moles/Vol] 25 mmol/L 21 - 31 mmol/L [facility] Creatinine [Mass/Vol] 1.27 mg/dL High 0.50 - 1.20 mg/dL [facility] eGFR, CKD-EPI, Female 43 Low - PINF [facility] Glucose [Mass/Vol] 214 mg/dL High 70 - 179 mg/dL [facility] Interpretation and review of laboratory results Abnormal [facility] Osmolality Calc [Osmolality] 306 High [facility] Potassium [Moles/Vol] 4.8 mmol/L 3.5 - 5.0 mmol/L [facility] Sodium [Moles/Vol] 135 mmol/L 135 - 145 mmol/L [facility] Urea nitrogen [Mass/Vol] 51 mg/dL High 7 - 25 mg/dL [facility] Urea nitrogen/Creatinine [Mass ratio] 40 mg/mg [facility] Anion gap [Moles/Vol] 16 mmol/L Normal 7-17 [facility] Comment on above: Performed By: #### [facility] [place] #### [facility] (DEFAULT) [address] [address] Chloride [Moles/Vol] 99 mmol/L Normal 98-108 [facility] Comment on above: Performed By: #### [facility] [place] #### [facility] (DEFAULT) [address] [place] [address] CO2 [Moles/Vol] 25 mmol/L Normal 21-31 [facility] Comment on above: Performed By: #### [facility] [place] #### [facility] (DEFAULT) [address] [address] Creatinine [Mass/Vol] 1.27 mg/dL High 0.50-1.20 [facility] Comment on above: Performed By: #### [facility] [place] #### [facility] (DEFAULT) [address] [address] GFR/1.73 sq M.predicted among non-blacks MDRD (S/P/Bld) [Vol rate/Area] 43 mL/min/{1.73_m2} Low >=60 [facility] Comment on above: Result Comment: Repo rted eGFR is based on the CKD-EPI 2020 equation using creatinine, age, and sex. Performed By: #### H EMO #### [facility] (DEFAULT) [address] [place] [address] Glucose [Mass/Vol] 214 mg/dL High Nonfastin -179 mg/dL; Fastin-99 [facility] Comment on above: Performed By: #### H EMO #### U [facility] (DEFAULT) [address] [place] [address] Osmolality [Osmolality] 306 mosm/kg High 278-305 [facility] Comment on above: Performed By: #### H EMO #### [facility] (DEFAULT) [address] [place] [address] Potassium [Moles/Vol] 4.8 mmol/L Normal 3.5-5.0 [facility] Comment on above: Performed By: #### H EMO #### [facility] (DEFAULT) [address] [place] [address] Sodium [Moles/Vol] 135 mmol/L Normal 135-145 [facility] Comment on above: Performed By: #### [facility] [place] #### [facility] (DEFAULT) [address] [place] [address] Urea nitrogen [Mass/Vol] 51 mg/dL High 7-25 [facility] Comment on above: Performed By: #### H EMO #### [facility] (DEFAULT) [address] [place] [address] Urea nitrogen/Creatinine [Mass ratio] 40 mg/mg Normal [facility] Comment on above: Performed By: #### H EMO #### [facility] (DEFAULT) [address] [place] [address] GLUCOSE POCon 08-15-2024 Glucose [Mass/Vol] 190 mg/dL High 70 - 179 mg/dL [facility] Interpretation and review of laboratory results Abnormal [facility] POC Sample Type CAPBL [facility] Glucose [Mass/Vol] 146 mg/dL 70 - 179 mg/dL [facility] POC Sample Type CAPBL [facility] Glucose [Mass/Vol] 215 mg/dL High 70 - 179 mg/dL [facility] Interpretation and review of laboratory results Abnormal [facility] POC Sample Type CAPBL [facility] MAGNESIUMon 08-15-2024 Interpretation and review of laboratory results Normal [facility] Magnesium [Mass/Vol] 1.6 mg/dL 1.6 - 2 .6 mg/dL [facility] Magnesium [Mass/Vol] 1.6 mg/dL Normal 1.6-2.6 [facility] Comment on above: Performed By: #### [facility] [place] #### [facility] (DEFAULT) [address] [place] [address] No Panel Informationon 08-15 [facility] CBC,PLATELETSon 08-14-2024 Erythrocyte distribution width (RBC) [Ratio] 13.4 % 10.8 - 14.9 % [facility] Hematocrit (Bld) [Volume fraction] 47.9 % High 34.9 - 44.3 % [facility] Hemoglobin (Bld) [Mass/Vol] 14.3 g/dL 11.4 - 15.2 g/dL [facility] Interpretation and review of laboratory results Abnormal [facility] MCH (RBC) [Entitic mass] 29.3 pg 25.9 - 33.9 pg [facility] MCHC (RBC) [Mass/Vol] 29.9 g/dL Low 31.4 - 35.9 g/dL [facility] MCV (RBC) [Entitic vol] 98.2 fL High 79.6 - 97.7 fL [facility] Platelet mean volume (Bld) [Entitic vol] 11.3 fL 8.5 - 12.2 fL [facility] Platelets (Bld) [#/Vol] 229 10*3/uL 150 - 393 K/uL [facility] RBC (Bld) [#/Vol] 4.88 10*6/uL [facility] WBC (Bld) [#/Vol] 12.14 10*3/uL High 3.99 - 11.19 K/uL [facility] Hematocrit (Bld) [Volume fraction] 47.9 % High 34.9-44.3 [facility] Comment on above: Performed By: #### X M #### [facility] (DEFAULT) [address] [address] Hemoglobin (Bld) [Mass/Vol] 14.3 g/dL Normal 11.4-15.2 [facility] Comment on above: Performed By: #### X M #### [facility] (DEFAULT) [address] [address] MCV (RBC) [Entitic vol] 98.2 fL High 79.6-97.7 O [facility] Comment on above: Performed By: #### X M #### [facility] (DEFAULT) [address] [address] Mean Cell Hgb 29.3 pg Normal 25.9-33.9 [facility] Comment on above: Performed By: #### X M #### [facility] (DEFAULT) [address] [place] [address] Mean Cell Hgb Conc 29.9 g/dL Low 31.4-35.9 [facility] Comment on above: Performed By: #### X M #### [facility] (DEFAULT) [address] [address] Platelet mean volume (Bld) [Entitic vol] 11.3 fL Normal 8.5-12.2 [facility] Comment on above: Performed By: #### X M #### [facility] (DEFAULT) [address] [place] [address] Platelets (Bld) [#/Vol] 229 10*3/uL Normal 150-393 [facility] Comment on above: Performed By: #### X M #### [facility] (DEFAULT) [address] [place] [address] RBC (Bld) [#/Vol] 4.88 10*6/uL Normal 3.91-5.04 [facility] Comment on above: Performed By: #### X M #### [facility] (DEFAULT) [address] [place] [address] RBC Distribution 13.4 % Normal 10.8-14.9 [facility] Comment on above: Performed By: #### X M #### [facility] (DEFAULT) [address] [place] [address] WBC (Bld) [#/Vol] 12.14 10*3/uL High 3.99-11.19 [facility] Comment on above: Performed By: #### X M #### [facility] (DEFAULT) [address] [address] [place] [id number] CHEM 7 (LYTES,BUN,CREA,GLUC) on 08-14-2024 Anion gap [Moles/Vol] 16 mmol/L 7 - 17 mmol/L [facility] Chloride [Moles/Vol] 101 mmol/L 98 - 10 8 mmol/L [facility] CO2 [Moles/Vol] 23 mmol/L 21 - 31 mmol/L [facility] Creatinine [Mass/Vol] 1.15 mg/dL 0.50 - 1.20 mg/dL [facility] eGFR, CKD-EPI, Female 48 Low - PINF [facility] Glucose [Mass/Vol] 208 mg/dL High 70 - 179 mg/dL [facility] Interpretation and review of laboratory results Abnormal [facility] Osmolality Calc [Osmolality] 304 [facility] Potassium [Moles/Vol] 4.7 mmol/L 3.5 - 5.0 mmol/L [facility] Sodium [Moles/Vol] 135 mmol/L 135 - 145 mmol/L [facility] Urea nitrogen [Mass/Vol] 47 mg/dL High 7 - 25 mg/dL [facility] Urea nitrogen/Creatinine [Mass ratio] 41 mg/mg [facility] Anion gap [Moles/Vol] 16 mmol/L Normal 7-17 [facility] Comment on above: Performed By: #### B LDCULT #### [facility] (DEFAULT) [address] [place] [address] Chloride [Moles/Vol] 101 mmol/L Normal 98-108 [facility] Comment on above: Performed By: #### B LDCULT #### [place] [facility] (DEFAULT) [address] [place] [address]646 CO2 [Moles/Vol] 23 mmol/L Normal 21-31 [facility] Comment on above: Performed By: #### B LDCULT #### [facility] (DEFAULT) [address] [place] [address]13 Creatinine [Mass/Vol] 1.15 mg/dL Normal 0.50-1.20 [facility] Comment on above: Performed By: #### B LDCULT #### [facility] (DEFAULT) [address] [place] [address] 32490 GFR/1.73 sq M.predicted among non-blacks MDRD (S/P/Bld) [Vol rate/Area] 48 mL/min/{1.73_m2} Low >=60 [facility] Comment on above: Result Comment: Repo rted eGFR is based on the CKD-EPI 2020 equation using creatinine, age, and sex. Performed By: #### B LDCULT #### [facility] (DEFAULT) [address] [place] [address] Glucose [Mass/Vol] 208 mg/dL High Nonfastin -179 mg/dL; Fastin-99 [facility] Comment on above: Performed By: #### B LDCULT #### [facility] (DEFAULT) [address] [place] [address]355 Osmolality [Osmolality] 304 mosm/kg Normal 278-305 [facility] Comment on above: Performed By: #### B LDCULT #### [facility] (DEFAULT) [address] [place] [address] 47682 Potassium [Moles/Vol] 4.7 mmol/L Normal 3.5-5.0 [facility] Comment on above: Performed By: #### B LDCULT #### [facility] (DEFAULT) [address] [place] [address] 53454 Sodium [Moles/Vol] 135 mmol/L Normal 135-145 [facility] Comment on above: Performed By: #### B LDCULT #### [facility] (DEFAULT) [address] [place] [address] 96663 Urea nitrogen [Mass/Vol] 47 mg/dL High 7-25 [facility] Comment on above: Performed By: #### B LDCULT #### [facility] (DEFAULT) [address] [place] [address] 11030 Urea nitrogen/Creatinine [Mass ratio] 41 mg/mg Normal [facility] Comment on above: Performed By: #### B LDCULT #### [facility] (DEFAULT) [address] [place] [address] 44097 GLUCOSE POCon 08-14-2024 Glucose [Mass/Vol] 204 mg/dL High 70 - 179 mg/dL [facility] Interpretation and review of laboratory results Abnormal [facility] POC Sample Type CAPBL [facility] Glucose [Mass/Vol] 264 mg/dL High 70 - 179 mg/dL [facility] Interpretation and review of laboratory results Abnormal [facility] POC Sample Type [facility] Glucose [Mass/Vol] 189 mg/dL High 70 - 179 mg/dL [facility] Interpretation and review of laboratory results Abnormal [facility] POC Sample Type CAPBL [facility] MAGNESIUMon 08-14-2024 Interpretation and review of laboratory results Normal [facility] Magnesium [Mass/Vol] 1.6 mg/dL 1.6 - 2 .6 mg/dL [facility] Magnesium [Mass/Vol] 1.6 mg/dL Normal 1.6-2.6 [facility] Comment on above: Performed By: #### B LDCULT #### [facility] (DEFAULT) [address] [place] [address] No Panel Informationon 08-14 [facility] CBC,PLATELETSon 08-13-2024 Erythrocyte distribution width (RBC) [Ratio] 13.4 % 10.8 - 14.9 % [facility] Hematocrit (Bld) [Volume fraction] 45.7 % High 34.9 - 44.3 % [facility] Hemoglobin (Bld) [Mass/Vol] 14.3 g/dL 11.4 - 15.2 g/dL [facility] Interpretation and review of laboratory results Abnormal [facility] MCH (RBC) [Entitic mass] 29.5 pg 25.9 - 33.9 pg [facility] MCHC (RBC) [Mass/Vol] 31.3 g/dL Low 31.4 - 35.9 g/dL [facility] MCV (RBC) [Entitic vol] 94.2 fL 79.6 - 97.7 fL [facility] Platelet mean volume (Bld) [Entitic vol] 11.7 fL 8.5 - 12.2 fL [facility] Platelets (Bld) [#/Vol] 245 10*3/uL 150 - 393 K/uL [facility] RBC (Bld) [#/Vol] 4.85 10*6/uL [facility] WBC (Bld) [#/Vol] 12.02 10*3/uL High 3.99 - 11.19 K/uL [facility] Hematocrit (Bld) [Volume fraction] 45.7 % High 34.9-44.3 [facility] Comment on above: Performed By: #### H EMOGC #### [facility] (DEFAULT) [address] [place] [address]132 Hemoglobin (Bld) [Mass/Vol] 14.3 g/dL Normal 11.4-15.2 [facility] Comment on above: Performed By: #### H EMOGC #### [facility] (DEFAULT) [address] [address] MCV (RBC) [Entitic vol] 94.2 fL Normal 79.6-97.7 O [facility] Comment on above: Performed By: #### H EMOGC #### [facility] (DEFAULT) [address] [place] [address] 48095 Mean Cell Hgb 29.5 pg Normal 25.9-33.9 [facility] Comment on above: Performed By: #### H EMOGC #### [facility] (DEFAULT) [address] [address] Mean Cell Hgb Conc 31.3 g/dL Low 31.4-35.9 [facility] Comment on above: Performed By: #### H EMOGC #### [facility] (DEFAULT) [address] [place] [address] 42694 Platelet mean volume (Bld) [Entitic vol] 11.7 fL Normal 8.5-12.2 [facility] Comment on above: Performed By: #### H EMOGC #### [facility] (DEFAULT) [address] [address] Platelets (Bld) [#/Vol] 245 10*3/uL Normal 150-393 [facility] Comment on above: Performed By: #### H EMOGC #### [facility] (DEFAULT) [address] [place] [address] 80492 RBC (Bld) [#/Vol] 4.85 10*6/uL Normal 3.91-5.04 [facility] Comment on above: Performed By: #### [place] [facility] [place] #### [facility] (DEFAULT) [address] [place] [address] RBC Distribution 13.4 % Normal 10.8-14.9 [facility] Comment on above: Performed By: #### [place] [facility] [place] #### [facility] (DEFAULT) [address] [place] [address]697 WBC (Bld) [#/Vol] 12.02 10*3/uL High 3.99-11.19 [facility] Comment on above: Performed By: #### [place] [facility] [place] #### [facility] (DEFAULT) [address] [place] [address] 13716 CHEM 7 (LYTES,BUN,CREA,GLUC) on 08-13-2024 Anion gap [Moles/Vol] 15 mmol/L 7 - 17 mmol/L [facility] Chloride [Moles/Vol] 104 mmol/L 98 - 10 8 mmol/L [facility] CO2 [Moles/Vol] 23 mmol/L 21 - 31 mmol/L [facility] Creatinine [Mass/Vol] 1.18 mg/dL 0.50 - 1.20 mg/dL [facility] eGFR, CKD-EPI, Female 47 Low - PINF [facility] Glucose [Mass/Vol] 225 mg/dL High 70 - 179 mg/dL [facility] Interpretation and review of laboratory results Abnormal [facility] Osmolality Calc [Osmolality] 311 High [facility] Potassium [Moles/Vol] 4.6 mmol/L 3.5 - 5.0 mmol/L [facility] Sodium [Moles/Vol] 137 mmol/L 135 - 145 mmol/L [facility] Urea nitrogen [Mass/Vol] 55 mg/dL High 7 - 25 mg/dL [facility] Urea nitrogen/Creatinine [Mass ratio] 47 mg/mg [facility] Anion gap [Moles/Vol] 15 mmol/L Normal 7-17 [facility] Comment on above: Performed By: #### [place] [facility] [place] #### [facility] (DEFAULT) [address] [place] [address] 21169 Chloride [Moles/Vol] 104 mmol/L Normal 98-108 [facility] Comment on above: Performed By: #### H EMO #### [facility] (DEFAULT) [address] [place] [address] 22053 CO2 [Moles/Vol] 23 mmol/L Normal 21-31 [facility] Comment on above: Performed By: #### [place] [facility] [place] #### [facility] (DEFAULT) [address] [place] [address]17 Creatinine [Mass/Vol] 1.18 mg/dL Normal 0.50-1.20 [facility] Comment on above: Performed By: #### [place] [facility] [place] #### [place] [facility] (DEFAULT) [address] [address] GFR/1.73 sq M.predicted among non-blacks MDRD (S/P/Bld) [Vol rate/Area] 47 mL/min/{1.73_m2} Low >=60 [facility] Comment on above: Result Comment: Repo rted eGFR is based on the CKD-EPI 2020 equation using creatinine, age, and sex. Performed By: #### [place] [facility] [place] #### [place] [facility] (DEFAULT) [address] [place] [address]127 Glucose [Mass/Vol] 225 mg/dL High Nonfastin -179 mg/dL; Fastin-99 [facility] Comment on above: Performed By: #### H EMOGC #### [facility] (DEFAULT) [address] [address] Osmolality [Osmolality] 311 mosm/kg High 278-305 [facility] Comment on above: Performed By: #### H EMO #### [facility] (DEFAULT) [address] [place] [address] Potassium [Moles/Vol] 4.6 mmol/L Normal 3.5-5.0 [facility] Comment on above: Performed By: #### H EMOGC #### [facility] (DEFAULT) [address] [place] [address] Sodium [Moles/Vol] 137 mmol/L Normal 135-145 [facility] Comment on above: Performed By: #### H EMOGC #### [facility] (DEFAULT) [address] [place] [address] Urea nitrogen [Mass/Vol] 55 mg/dL High 7-25 [facility] Comment on above: Performed By: #### H EMOGC #### [facility] (DEFAULT) [address] [place] [address] Urea nitrogen/Creatinine [Mass ratio] 47 mg/mg Normal [facility] Comment on above: Performed By: #### H EMOGC #### [facility] (DEFAULT) [address] [place] [address] GLUCOSE POCon 08-13-2024 Glucose [Mass/Vol] 195 mg/dL High 70 - 179 mg/dL [facility] Interpretation and review of laboratory results Abnormal [facility] POC Sample Type [facility] Glucose [Mass/Vol] 198 mg/dL High 70 - 179 mg/dL [facility] Interpretation and review of laboratory results Abnormal [facility] POC Sample Type [facility]BL [facility] Glucose [Mass/Vol] 158 mg/dL 70 - 179 mg/dL [facility] POC Sample Type [facility] Glucose [Mass/Vol] 211 mg/dL High 70 - 179 mg/dL [facility] Interpretation and review of laboratory results Abnormal [facility] POC Sample Type CAPBL [facility] Glucose [Mass/Vol] 240 mg/dL High 70 - 179 mg/dL [facility] Interpretation and review of laboratory results Abnormal [facility] POC Sample Type CAPBL [facility] MAGNESIUMon 08-13-2024 Interpretation and review of laboratory results Normal [facility] Magnesium [Mass/Vol] 1.8 mg/dL 1.6 - 2 .6 mg/dL [facility] Magnesium [Mass/Vol] 1.8 mg/dL Normal 1.6-2.6 [facility] Comment on above: Performed By: #### [place] [facility] [place] #### [facility] (DEFAULT) [address] [place] [address] No Panel Informationon 08-13 [facility] CBC,PLATELETSon 08-12-2024 Erythrocyte distribution width (RBC) [Ratio] 13.6 % 10.8 - 14.9 % [facility] Hematocrit (Bld) [Volume fraction] 45.1 % High 34.9 - 44.3 % [facility] Hemoglobin (Bld) [Mass/Vol] 14.3 g/dL 11.4 - 15.2 g/dL [facility] Interpretation and review of laboratory results Abnormal [facility] MCH (RBC) [Entitic mass] 29.7 pg 25.9 - 33.9 pg [facility] MCHC (RBC) [Mass/Vol] 31.7 g/dL 31.4 - 35.9 g/dL [facility] MCV (RBC) [Entitic vol] 93.6 fL 79.6 - 97.7 fL [facility] Platelet mean volume (Bld) [Entitic vol] 11.4 fL 8.5 - 12.2 fL [facility] Platelets (Bld) [#/Vol] 241 10*3/uL 150 - 393 K/uL [facility] RBC (Bld) [#/Vol] 4.82 10*6/uL [facility] WBC (Bld) [#/Vol] 14.32 10*3/uL High 3.99 - 11.19 K/uL [facility] Hematocrit (Bld) [Volume fraction] 45.1 % High 34.9-44.3 [facility] Comment on above: Performed By: #### H EMOGC #### [facility] (DEFAULT) [address] [place] [address] Hemoglobin (Bld) [Mass/Vol] 14.3 g/dL Normal 11.4-15.2 [facility] Comment on above: Performed By: #### H EMOGC #### [facility] (DEFAULT) [address] [place] [address] 99902 MCV (RBC) [Entitic vol] 93.6 fL Normal 79.6-97.7 [facility] Comment on above: Performed By: #### H EMOGC #### [facility] (DEFAULT) [address] [place] [address] 47148 Mean Cell Hgb 29.7 pg Normal 25.9-33.9 [facility] Comment on above: Performed By: #### H EMOGC #### [facility] (DEFAULT) [address] [place] [address] 27577 Mean Cell Hgb Conc 31.7 g/dL Normal 31.4-35.9 [facility] Comment on above: Performed By: #### H EMOGC #### [facility] (DEFAULT) [address] [place] [address] 07330 Platelet mean volume (Bld) [Entitic vol] 11.4 fL Normal 8.5-12.2 [facility] Comment on above: Performed By: #### H EMOGC #### [facility] (DEFAULT) [address] [place] [address] 91871 Platelets (Bld) [#/Vol] 241 10*3/uL Normal 150-393 [facility] Comment on above: Performed By: #### [place] [facility] [place] #### [facility] (DEFAULT) [address] [place] [address] 17407 RBC (Bld) [#/Vol] 4.82 10*6/uL Normal 3.91-5.04 [facility] Comment on above: Performed By: #### [place] [facility] [place] #### [facility] (DEFAULT) [address] [place] [address] RBC Distribution 13.6 % Normal 10.8-14.9 [facility] Comment on above: Performed By: #### [place] [facility] [place] #### [facility] (DEFAULT) [address] [place] [address] 70277 WBC (Bld) [#/Vol] 14.32 10*3/uL High 3.99-11.19 [facility] Comment on above: Performed By: #### [place] [facility] [place] #### [facility] (DEFAULT) [address] [place] [address] 93801 CHEM 7 (LYTES,BUN,CREA,GLUC) on 08-12-2024 Anion gap [Moles/Vol] 15 mmol/L 7 - 17 mmol/L [facility] Chloride [Moles/Vol] 104 mmol/L 98 - 10 8 mmol/L [facility] CO2 [Moles/Vol] 27 mmol/L 21 - 31 mmol/L [facility] Creatinine [Mass/Vol] 1.36 mg/dL High 0.50 - 1.20 mg/dL [facility] eGFR, CKD-EPI, Female 40 Low - PINF [facility] Glucose [Mass/Vol] 126 mg/dL 70 - 179 mg/dL [facility] Interpretation and review of laboratory results Abnormal [facility] Osmolality Calc [Osmolality] 313 High [facility] Potassium [Moles/Vol] 4.5 mmol/L 3.5 - 5.0 mmol/L [facility] Sodium [Moles/Vol] 141 mmol/L 135 - 145 mmol/L [facility] Urea nitrogen [Mass/Vol] 56 mg/dL High 7 - 25 mg/dL [facility] Urea nitrogen/Creatinine [Mass ratio] 41 mg/mg [facility] Anion gap [Moles/Vol] 15 mmol/L Normal 7-17 [facility] Comment on above: Performed By: #### T YPEC #### [facility] (DEFAULT) [address] [place] [address] 84027 Chloride [Moles/Vol] 104 mmol/L Normal 98-108 [facility] Comment on above: Performed By: #### T YPEC #### [facility] (DEFAULT) [address] [place] [address] 78870 CO2 [Moles/Vol] 27 mmol/L Normal 21-31 [facility] Comment on above: Performed By: #### T YPEC #### [facility] (DEFAULT) [address] [place] [address] 52695 Creatinine [Mass/Vol] 1.36 mg/dL High 0.50-1.20 [facility] Comment on above: Performed By: #### T YPEC #### [facility] (DEFAULT) [address] [place] [address] 15925 GFR/1.73 sq M.predicted among non-blacks MDRD (S/P/Bld) [Vol rate/Area] 40 mL/min/{1.73_m2} Low >=60 [facility] Comment on above: Result Comment: Repo rted eGFR is based on the CKD-EPI 1 equation using creatinine, age, and sex. Performed By: #### T YPEC #### [facility] (DEFAULT) [address] [place] [address] 92564 Glucose [Mass/Vol] 126 mg/dL Normal Nonfastin -179 mg/dL; Fastin-99 [facility] Comment on above: Performed By: #### T YPEC #### [facility] (DEFAULT) [address] [place] [address] 79896 Osmolality [Osmolality] 313 mosm/kg High 278-305 [facility] Comment on above: Performed By: #### T YPEC #### [facility] (DEFAULT) [address] [place] [address] 21860 Potassium [Moles/Vol] 4.5 mmol/L Normal 3.5-5.0 [facility] Comment on above: Performed By: #### T YPEC #### [facility] (DEFAULT) [address] [place] [address] 15576 Sodium [Moles/Vol] 141 mmol/L Normal 135-145 [facility] Comment on above: Performed By: #### T YPEC #### [facility] (DEFAULT) [address] [place] [address] 93214 Urea nitrogen [Mass/Vol] 56 mg/dL High 7-25 [facility] Comment on above: Performed By: #### T YPEC #### [facility] (DEFAULT) [address] [place] [address]40 Urea nitrogen/Creatinine [Mass ratio] 41 mg/mg Normal [facility] Comment on above: Performed By: #### T YPEC #### [facility] (DEFAULT) [address] [address] GLUCOSE POCon 08-12-2024 Glucose [Mass/Vol] 231 mg/dL High 70 - 179 mg/dL [facility] Interpretation and review of laboratory results Abnormal [facility] POC Sample Type CAPBL [facility] Glucose [Mass/Vol] 208 mg/dL High 70 - 179 mg/dL [facility] Interpretation and review of laboratory results Abnormal [facility] POC Sample Type CAPBL [facility] Glucose [Mass/Vol] 160 mg/dL 70 - 179 mg/dL [facility] POC Sample Type CAPBL [facility] Glucose [Mass/Vol] 107 mg/dL 70 - 179 mg/dL [facility] POC Sample Type CAPBL [facility] MAGNESIUMon 08-12-2024 Interpretation and review of laboratory results Normal [facility] Magnesium [Mass/Vol] 2.2 mg/dL 1.6 - 2 .6 mg/dL [facility] Magnesium [Mass/Vol] 2.2 mg/dL Normal 1.6-2.6 [facility] Comment on above: Performed By: #### T YPEC #### [facility] (DEFAULT) [address] [place] [address] No Panel Informationon 08-12 [facility] SURG PATH REQUESTOrdered By: Renae Glez on 08-12-2024 Case Report [facility] Clinical History o2hkcTNtJMSpiQIxPWYr NVx syxCrWUUvyLAwX9SkkrqjRZ fqLL5fLZ3xwMesiIVhoHYgA SZxOpGoi1cmm788dYKmz0df KCVDtoskgRn2wPnxP93ii1W 5KbirB8mgYEOlOLgbAGFpBQ qdhPKzWCt0HDOgaFAybaJzT wIwSPQxdFDplUY1AAWqMD8n aqhnPAvbHUtzLZQawbR1JZX ktUUkZ4SeLZZkEG7uysprZE V2KRgpIAQeDUW8OtAxGNMfi 2Ucleh7VqWuoRk0a1hvQUUx WXJueNxij7kfCTZ0DAVuySN gP1jbgV1iERXsOV0vwirtb2 mzWMzdNVhaPWTwyXN7wvF2X SUzaZVzU8EpjU5jLLSxBMQv uyXqjIqreH7zOjZhFMczAiA lJh7NAXpRKjJzGCBlk4OwBY FkAUWFaJForh9ziDR6HXVYr 86fUlFnRRJoxHPeqOTBtQI0 u0J3CeNlSb9biUIqeLNenAZ pnVB2e7B3ZNZud4AxSULsEa xwYXJ9 [facility] For Immediate Release to Patient's MyChart? Yes Yes [facility] Gross Description g4zyiWOzBBEhw6mmZYOl bGF uZzEwMzNcZnRuYmpcdWMxIH tccnRmMVxlcGljMTExMDVcY X5bcAqatFi5bWvfZMJxfpF2 bGKsXLpvg1gzOAK6a8xqvmj kNDJsHCouJe0lgHDlzQrpNn NsOAAkKNe3jC76DPRswE9zp AGbRLnxslJlDFAvB9LjZT7d ANyqhSRrRXS3bIsyTMJdgpc vOgL6NUwtSWQgonalYLk5XQ iwNEWmwWX5LFViaDNoX0IcP PXfJF1zuvh1GHY6PXenCCYi MuV9GJUdcHXqZKDmaUxhUMr ep424NBM3ZuAiKXYvxcYtaJ wcaA0aCxTxVREJeBSgu9KuM 9frKE6bdSEfecJyENx3KWXg sZ5qw74eFXRqa3Ooour9OQg eKtQoQSHxF66xrBIhngGuJB dpdGggdGhlIHBhdGllbnQnc eLuVU8pABBgDWJyB9Ucp6Bv j71umzQaYsShOiNbkCDvWSI defkwBtZoRJwyWhBoLcz9RZ IgVGhlIHNwZWNpbWVuIGlzI AEud6baqpF3DFVpNvsyw5Zi vMQuKGZcjvNbhZJjDP6sEKB olpBgj9QfZA2xXMUnqwPaRx VuS79xzoDaTZ6oZKUrkl9ua A1iEWIeVkGryFvjx9GiOEAl ch5iUUFaIpK7rGQ1hcWmEaZ bH45dqG8bK1YsIVYah7FsHT klPH5naQ9aUrMgBRDiOHMgt IEpELUoksRSWRBaJRQrAA6s xNu3URrkWqxQQRbnWoNcAAD 2FSSlhy33DMY0XyJwx2W0OC BpDkTiFMVlOW7vgGgaIXZdL T8nUYQmC3uttU4tgcc6KvYz ASNvUbB3OBIexdS5Ijg8IIK cMDano0iwl9FuXJHvQGy5xZ jfJmThCNKhx4dqxuArYyDqT AUkMACrPMLkfYWoG928j9hf a1fsiwTkvQQ9FSYmATR4HCo afmWwfnL2MXkdiHLkFxE2IY hzlvGrKZnawrVzwkQeYtp4Y XXsL672JAM6dOcak0vwUUP4 VDDdOUPsIvAxQo8crGDrL88 1MDSbMSQIVZEkpUc4GDLdat FkryJetEIGo926X916y6khY DDgdoEnpXtXokjod5bhU397 XHBhcGVydzEyMjQwXHBhcGV ftLJ1RUCrXK6pclghTGvqCQ ybOCPakxY2VCVzaKNjT1PwM BPwVK7diygfYGU4IBysGACx KHP6YaIwURRxe9Dlckf4QfO gsh5clz16YOW0y5QmyJdsJT W7LDD7FsNhZf3wuFXlLDAyZ F8gEmKnuPGtNSEtms82aEvo JZgedvIhpX8nAuVnXFJkhGU lUZSsDM4mtRDjLPUzsV8fzg xjXHBnYnJkcmhlYWRccGdic zAxFr8piOlgUHE3LPeeO9zb yF9dVrH1TSccC1lsfJ2eBPw 4ARjwiXH3LPNtpU6rGK4lmy pkd8ksARipXVpoNMBtgmE7j vU5PSPprILhV4WtpI6fBUZp NJ3msqmmx1eiCCQ3VKrwQDR zBUG4RpNcDWDyp8Tfeys7Gf Jna5BvdTAcMMxuT23uq226A RIluuMnA2gxjFMciaxrzOLu nvpzNNboxcA3MJTaOCQsGHc uXGYxXGZzMjJcbGFuZzEwMz NcaGljaFxmMVxkYmNoXGYxX MprR8toNlYfHwKjSiRDtm5e z5AwQDRdmxW6oGkaLWDxj4A gu6PdGcYFVELmM7YwSS5eiS AwTIZspv56 [facility] Microscopic Description g9pduQVgJELrvHOb ZjIyMDA hKEMpc6mpFTFbzZYzVbPnDo NcZnRuYmpcdWMxXGRlZmYwe 2jak981gUSfj2ffBLMiXkN1 bYKtDOPmwZQkK501ZTJtEIe iq3dtl3ChVALmjLJoj5D9FQ EHhlojpEs2qXgiQ82kh2S4T xzrN9ugHYJjITAlK8NsLE4o DMRwOkv0JHO0HGW0XKDnSGN sE0TwJO5bNBLbpLAgTFb3n0 whsSleAXMkLIV5q5zhZDeje sEsSK3cox4rxLp0p3becyDh QINvNDRcyZJCERDhW4VyoWw uEa4bfNy9dNjzBvnsPUC4Sm h6BD0hpy20jdx7eEfqSBGsg ljrOeG8ZGtlVAZmrujkYAk5 LWngZBLmcZT0UYZhhCWjH4U zJYMpWB3jnkv3MRJ8BKnlGH HvJwO4CYTuuDGlFAVilVmvG Kcsz926EMX5TwHvOU3rW3Ud w5H1mV6zwUAtNMPkgFZxSuF oZHXaoz9jfIFfTNiso4NqUI R2yuF5kCRbfGSoQQIvEV85G vgbr6RwPbfbDLN5WNUnuhZy b2Ejq6pmSaGxgpHmD9xhO3P yZHJoZWFkXHBnYnJkcmZvb3 Hrg1JcmXMloBt9x9uwEUToB PCntGkbf5joRHI8EZFtA6K7 cNXmv3kdCUpeTGYzbLO6yaT 3JGVjhHLsN1DmtO5gNFMtDI 7pwsd3w8ciRNP0WDaaDHPtP vP3slR7SYIcyNSgQUQxuWuf VXdvj737PGX2HoAlBLDfp8J dE2HvcQebH67umJmvN33vCR PqgIctgU7rxYxwkN8oNaZgS nMyNFxxbFxwbGFpblxmMVxm erLnZWirgzrmJYWpHYodZ4o zEdSbUUTlzVtdKTlxx3YvNJ OrJGIxYvIkZXDidIEcj6Ehh 8FaNhZntGAraB1qzIqtnjQ2 GEGfaKRtSg8uiEHwSpUkcEV yfQ== [facility] Pathologic Diagnosis x6nklPIwAGJxdRFtMIW wNVx jweKpBBTfiFDrJ5NobitnBI lfQR5hNQ5iyGildEJcoFFoJ CKfNyUzi0zvq588lEZcc4ha CIEAlqoxvQi4y5igANPSsM5 ge9k8fJ64GFAkaC6tcSRwUB vejwMjMAtmmhYiumRjEba5E WZ0eXazTfhcsTE9wINztUW1 VJuzf5ZzsEcmjIzuCIOpOLP bCWK4L4unhGB5uMAkgRiwuJ EwGA7jl3ubjGP1vmVnPUG3t MxerWP7sOzznczod9fksXI7 wFI6YCmxeCJ4SHgvYdIrY1k xBFMcmN7eF05cI3clKKAzsQ mkYChuBLKqmDU9OLU0BCGlb 1xsZXZlbHRleHRcJzAxXCdi Pep1y0mpFLBdmX23wJIsphQ 7fVxmMVxmczIwXGxpMzYwXG ZpMTgwfXtcbGlzdGxldmVsX JjkhyGlvnUgCuMlzMO3WRjl GkQsFgCzfTE8TGmbFvAryFC 1KAxlqOOmrRL8HQgprPD5NM r9HTh1HYzhHIpsQhl8iOzwp NA3PZptvC3mXZWbF52kTbQy XqZgLW39BRuxy8YbGPUpaVq yUIZnyD2fBcBqAWkddpQyyt ZjbjIzXGxldmVsamMwXGxld yFcu0XwcoAwgYL8ZLyzhqTo oCG1aXcwTGMgU0P7G518VSm ucmZsolCcWmOrukf6KQVgDS SmVxX5r9nmkBH2bYY3ILqqy TI7IZpfOxLwS4jiWOIzhV1h Q46cQ1rdXRCgbRkyKOooHTD neBU2HNO7TXWyp6dfYLOanG GwsWFlAvAnLWyqBfi2h2abW OZxxH52qKJuhkI0fMdmNBgo czIwfXtcbGlzdGxldmVsXGx axyJuqcKjKcPupKA5WOreTl FlLxSdhMO8WIvlOmXgdJR2W VcqqSTvxDV0PRtmtJW0PJu8 YTe1ZRcoXEtuQze1pBkohPS 8PGphjI1wKYVvV10dSaBeRh PyGG28QAwtk8MbWYYihHzxY FKfhK2uHrTgGTcahsEojvTl bjIzXGxldmVsamMwXGxldmV ua8FzeiOylQI0JRxmuvFifV F9xCtnAMKzV0T9C064SGsjn pRtupJxGyLnggo5RKBkQZIz CnU4s5oiqPP2eDA0MIojjUR 8LLksLwUsH1saEDOjoS6eB0 9bO0asXGAtaPtpCTdlJAFeh RU8IAX6SJFmr8uwDUGoeRRt zSNtBvNqMJtsFol3x4ykWXM asR68kUFelsA5jOvfOIkyky IwfXtcbGlzdGxldmVsXGxld rSqglVpKkGvgWB3TVtvVrUg NyZbyOW7CShlVjUrvIT6OQb ruCBkmXN7KCvsaRD1GOx3OO b6ULcsZNhiZdn4vAztyRH3X VxcpV4qXAIcJ92sCiHsMoXl LD27URwrs8XgMXOaqXwkHWD paT1oQtZiTTzgroCpzaZxjo IzXGxldmVsamMwXGxldmVsc 4WaldJzhQR2AWpwkmPceND2 qOxzWTHrM1I6S671BYypstE ffoQaQbPqpiq7HEXhHNVzGu C8fE66UVhvpDapkN98VFLpu IRxySXavPH0NPhvoXbpcU46 OIMhcAEgMGkut1LgFRCjJhA 6PtSjNIKbpIczmK17OEGfoA JjJ819ndOzRZpwDK28RYWoj GVydzEyMjQwXHBhcGVyaDE1 XZUpCJ5yzzjfQAlaTQwdZMA tntT7JOPohIBdF0BzJGNnEP 0bexsgZQM9SImcKCAdKXO2E rZuYGWxp9Tqqge8VrVlcDKm AMcbwTTplrhpJPMkWuJnB4A sIEFsCUB8i78pB4spRFHjg7 BzeTpccGFyXGxpMzYwXGZpM QjcTWotjlM4OAzxkxWjrUe7 iABbtFqbcT6zDutrckNmLTB zEZNLv8EejUEald2rqH3pIK YtypNYwkESJEviW37qYQC6B TPxxGhjg8SmLRcpIS94fMAq ZWRccGFyfQ== [facility] Professional Interpretation Performed at: m7bvoTOePQEklUMuBxYxCOG tCCAtv2mrPLTyzUTcSkBzVj NcZnRuYmpcdWMxXGRlZmYwe 8dnf275gXDfu5sfEFPcLtX4 tNIeKKEgmRPsQ496RVUxCKg sp3vhi7YoVVYzyNPwb5F9BK KPqzdbgPe2iGedW98go7S6A wkeG2mbLZIgVGIpX5RxMB5h LGEiThb2LSS1AHU9PLCtOIP pT6QoUE0kZHKqtSBvASv3l5 rkhLxfUGOhNEF1v2vxJIxcm yEuYS8azx9kyYe4u0gppbMn SVDzPIXvxWQBELVjA6JtyCj zLa9vaBk4uDbkDwimZAV6Uv k9LX0gwt98tkr7rKfmUFKrm bctPnW3RTvwKYEpmqasKLw8 PGehRWJmrTO7VYQswJNpX4J gYLSnUN8jryd1MVP9YRavMI HlHmH0PKVciXFeTUYmuWhjI Bkwj613HTO0TdIdWQ6sL1Zu q4K8yJ4yiCHtGDZaoWUlLgI iUOXnfi6axACxDDnlw4TzSW S9xiN2cLQbvUEqXJKeUD30B tmvu3MqDvtaTGO0OSXqsjDf p7Dvu8vnNxKqjdVfC7ooT4R yZHJoZWFkXHBnYnJkcmZvb3 Jue6GtvQQwpEc4m7agYRThY UWhoInnd2mkUVM3UCHoN5G6 iDMlq4saYVdaBNUmyGB9zgI 7FXQzmGNrS0WbhT0pRDOuIJ 1dxhv0d2eeFTB4ZShtSGHoL pH3giJ0YZThgWVpMICduNap UJpsx443QAU7SoRcWOYst5U xI7PnpKtsV73swHsoW80sRG HqfZawwQ2brFmtgU9bTkUcF nMyNFxwYXJkXHBsYWluXGYx XGZzMjJcbGFuZzEwMzNcaGl jaFxmMVxkYmNoXGYxXGxvY2 ptWwFzNbToUlMPH7WfP5GTP nPAEX5UWCoLQXhlX7HEUUQO GIDRVP3XE8SJWBdCLo0VTDV PCpdzyVWwIBAiPDBJRWP6IE TeaJsnQSQbBTVnnzZEf4x1j MH5vtiuD1pcpyI9MbToCAdn YXJ9 [facility] CBC,PLATELETSon 08-11-2024 Erythrocyte distribution width (RBC) [Ratio] 13.7 % 10.8 - 14.9 % [facility] Hematocrit (Bld) [Volume fraction] 43.2 % 34.9 - 44.3 % [facility] Hemoglobin (Bld) [Mass/Vol] 14 g/dL 11.4 - 15.2 g/dL [facility] Interpretation and review of laboratory results Abnormal [facility] MCH (RBC) [Entitic mass] 29.9 pg 25.9 - 33.9 pg [facility] MCHC (RBC) [Mass/Vol] 32.4 g/dL 31.4 - 35.9 g/dL [facility] MCV (RBC) [Entitic vol] 92.1 fL 79.6 - 97.7 fL [facility] Platelet mean volume (Bld) [Entitic vol] 11.5 fL 8.5 - 12.2 fL [facility] Platelets (Bld) [#/Vol] 240 10*3/uL 150 - 393 K/uL [facility] RBC (Bld) [#/Vol] 4.69 10*6/uL [facility] WBC (Bld) [#/Vol] 11.76 10*3/uL High 3.99 - 11.19 K/uL [facility] Hematocrit (Bld) [Volume fraction] 43.2 % Normal 34.9-44.3 [facility] Comment on above: Performed By: #### T YPEC #### [facility] (DEFAULT) [address] [address] Hemoglobin (Bld) [Mass/Vol] 14.0 g/dL Normal 11.4-15.2 [facility] Comment on above: Performed By: #### T YPEC #### [facility] (DEFAULT) [address] [place] [address] MCV (RBC) [Entitic vol] 92.1 fL Normal 79.6-97.7 [facility] Comment on above: Performed By: #### T YPEC #### [facility] (DEFAULT) [address] [place] [address] Mean Cell Hgb 29.9 pg Normal 25.9-33.9 [facility] Comment on above: Performed By: #### T YPEC #### [facility] (DEFAULT) [address] [place] [address] Mean Cell Hgb Conc 32.4 g/dL Normal 31.4-35.9 [facility] Comment on above: Performed By: #### T YPEC #### [facility] (DEFAULT) [address] [place] [address] Platelet mean volume (Bld) [Entitic vol] 11.5 fL Normal 8.5-12.2 [facility] Comment on above: Performed By: #### T YPEC #### [facility] (DEFAULT) [address] [place] [address] Platelets (Bld) [#/Vol] 240 10*3/uL Normal 150-393 [facility] Comment on above: Performed By: #### T YPEC #### [facility] (DEFAULT) [address] [place] [address] RBC (Bld) [#/Vol] 4.69 10*6/uL Normal 3.91-5.04 [facility] Comment on above: Performed By: #### T YPEC #### [facility] (DEFAULT) [address] [place] [address] RBC Distribution 13.7 % Normal 10.8-14.9 [facility] Comment on above: Performed By: #### T YPEC #### [facility] (DEFAULT) [address] [place] [address] WBC (Bld) [#/Vol] 11.76 10*3/uL High 3.99-11.19 [facility] Comment on above: Performed By: #### T YPEC #### [facility] (DEFAULT) [address] [place] [address] CHEM 7 (LYTES,BUN,CREA,GLUC) on 08-11-2024 Anion gap [Moles/Vol] 14 mmol/L 7 - 17 mmol/L [facility] Chloride [Moles/Vol] 103 mmol/L 98 - 10 8 mmol/L [facility] CO2 [Moles/Vol] 26 mmol/L 21 - 31 mmol/L [facility] Creatinine [Mass/Vol] 1.32 mg/dL High 0.50 - 1.20 mg/dL [facility] eGFR, CKD-EPI, Female 41 Low - PINF [facility] Glucose [Mass/Vol] 127 mg/dL 70 - 179 mg/dL [facility] Interpretation and review of laboratory results Abnormal [facility] Osmolality Calc [Osmolality] 306 High [facility] Potassium [Moles/Vol] 4.6 mmol/L 3.5 - 5.0 mmol/L [facility] Sodium [Moles/Vol] 138 mmol/L 135 - 145 mmol/L [facility] Urea nitrogen [Mass/Vol] 53 mg/dL High 7 - 25 mg/dL [facility] Urea nitrogen/Creatinine [Mass ratio] 40 mg/mg [facility] Anion gap [Moles/Vol] 14 mmol/L Normal 7-17 [facility] Comment on above: Performed By: #### [place] [facility] [place] #### [facility] (DEFAULT) [address] [address] Chloride [Moles/Vol] 103 mmol/L Normal 98-108 [facility] Comment on above: Performed By: #### [facility] [place] #### [facility] (DEFAULT) [address] [place] [address] CO2 [Moles/Vol] 26 mmol/L Normal 21-31 [facility] Comment on above: Performed By: #### [place] [facility] [place] #### [facility] (DEFAULT) [address] [place] [address] Creatinine [Mass/Vol] 1.32 mg/dL High 0.50-1.20 [facility] Comment on above: Performed By: #### [facility] [place] #### [facility] (DEFAULT) [address] [place] [address] GFR/1.73 sq M.predicted among non-blacks MDRD (S/P/Bld) [Vol rate/Area] 41 mL/min/{1.73_m2} Low >=60 [facility] Comment on above: Result Comment: Repo rted eGFR is based on the CKD-EPI 2020 equation using creatinine, age, and sex. Performed By: #### [facility] [place] #### [facility] (DEFAULT) [address] [place] [address] Glucose [Mass/Vol] 127 mg/dL Normal Nonfastin -179 mg/dL; Fastin-99 [facility] Comment on above: Performed By: #### H EMOGC #### [facility] (DEFAULT) [address] [place] [address] Osmolality [Osmolality] 306 mosm/kg High 278-305 [facility] Comment on above: Performed By: #### H EMOGC #### [facility] (DEFAULT) [address] [place] [address] Potassium [Moles/Vol] 4.6 mmol/L Normal 3.5-5.0 [facility] Comment on above: Performed By: #### H EMO #### [facility] (DEFAULT) [address] [place] [address] Sodium [Moles/Vol] 138 mmol/L Normal 135-145 [facility] Comment on above: Performed By: #### H EMOGC #### [facility] (DEFAULT) [address] [place] [address] Urea nitrogen [Mass/Vol] 53 mg/dL High 7-25 [facility] Comment on above: Performed By: #### H EMOGC #### [facility] (DEFAULT) [address] [place] [address] Urea nitrogen/Creatinine [Mass ratio] 40 mg/mg Normal [facility] Comment on above: Performed By: #### H EMOGC #### [facility] (DEFAULT) [address] [place] [address] GLUCOSE POCon 08-11-2024 Glucose [Mass/Vol] 213 mg/dL High 70 - 179 mg/dL [facility] Interpretation and review of laboratory results Abnormal [facility] POC Sample Type CAPBL [facility] Glucose [Mass/Vol] 255 mg/dL High 70 - 179 mg/dL [facility] Interpretation and review of laboratory results Abnormal [facility] POC Sample Type CAPBL [facility] Glucose [Mass/Vol] 190 mg/dL High 70 - 179 mg/dL [facility] Interpretation and review of laboratory results Abnormal [facility] POC Sample Type CAPBL [facility] Glucose [Mass/Vol] 205 mg/dL High 70 - 179 mg/dL [facility] Interpretation and review of laboratory results Abnormal [facility] POC Sample Type CAPBL [facility] MAGNESIUMon 08-11-2024 Interpretation and review of laboratory results Normal [facility] Magnesium [Mass/Vol] 1.9 mg/dL 1.6 - 2 .6 mg/dL [facility] Magnesium [Mass/Vol] 1.9 mg/dL Normal 1.6-2.6 [facility] Comment on above: Performed By: #### M WENDY, CHM7 #### [facility] (DEFAULT) [address] [address] No Panel Informationon 08-11 [facility] BLOOD CULTUREon 08-10-2024 Bacteria identified Cx Nom (Unsp spec) NO GROWTH DAY 5 OF 5 Normal [facility] Comment on above: Order Comment: 2 Bot [...] bottle. Performed By: #### T YPEC #### [facility] (DEFAULT) [address] [address] Bacteria identified Cx Nom (Unsp spec) NO GROWTH DAY 5 OF 5 Normal [facility] Comment on above: Order Comment: 2 Bot [...] bottle. Performed By: #### B LDCULT #### [facility] (DEFAULT) [address] [place] [address] CBC,PLATELETSon 08-10-2024 Erythrocyte distribution width (RBC) [Ratio] 13.3 % 10.8 - 14.9 % [facility] Hematocrit (Bld) [Volume fraction] 45.1 % High 34.9 - 44.3 % [facility] Hemoglobin (Bld) [Mass/Vol] 14.1 g/dL 11.4 - 15.2 g/dL [facility] Interpretation and review of laboratory results Abnormal [facility] MCH (RBC) [Entitic mass] 29.1 pg 25.9 - 33.9 pg [facility] MCHC (RBC) [Mass/Vol] 31.3 g/dL Low 31.4 - 35.9 g/dL [facility] MCV (RBC) [Entitic vol] 93 fL 79.6 - 97.7 fL [facility] Platelet mean volume (Bld) [Entitic vol] 11.4 fL 8.5 - 12.2 fL [facility] Platelets (Bld) [#/Vol] 216 10*3/uL 150 - 393 K/uL [facility] RBC (Bld) [#/Vol] 4.85 10*6/uL [facility] WBC (Bld) [#/Vol] 13.78 10*3/uL High 3.99 - 11.19 K/uL [facility] Hematocrit (Bld) [Volume fraction] 45.1 % High 34.9-44.3 [facility] Comment on above: Performed By: #### [facility] [place] #### [facility] (DEFAULT) [address] [place] [address] Hemoglobin (Bld) [Mass/Vol] 14.1 g/dL Normal 11.4-15.2 [facility] Comment on above: Performed By: #### H EMOGC #### [facility] (DEFAULT) [address] [address] MCV (RBC) [Entitic vol] 93.0 fL Normal 79.6-97.7 O [facility] Comment on above: Performed By: #### H EMOGC #### [facility] (DEFAULT) [address] [address] Mean Cell Hgb 29.1 pg Normal 25.9-33.9 [facility] Comment on above: Performed By: #### H EMOGC #### [facility] (DEFAULT) [address] [address] Mean Cell Hgb Conc 31.3 g/dL Low 31.4-35.9 [facility] Comment on above: Performed By: #### H EMO #### [facility] (DEFAULT) [address] [address] Platelet mean volume (Bld) [Entitic vol] 11.4 fL Normal 8.5-12.2 [facility] Comment on above: Performed By: #### H EMOGC #### [facility] (DEFAULT) [address] [address] Platelets (Bld) [#/Vol] 216 10*3/uL Normal 150-393 [facility] Comment on above: Performed By: #### H EMOGC #### [facility] (DEFAULT) [address] [address] RBC (Bld) [#/Vol] 4.85 10*6/uL Normal 3.91-5.04 [facility] Comment on above: Performed By: #### H EMOGC #### [facility] (DEFAULT) [address] [address] RBC Distribution 13.3 % Normal 10.8-14.9 [facility] Comment on above: Performed By: #### [facility] [place] #### [facility] (DEFAULT) [address] [place] [address] WBC (Bld) [#/Vol] 13.78 10*3/uL High 3.99-11.19 [facility] Comment on above: Performed By: #### [facility] [place] #### [facility] (DEFAULT) [address] [place] [address] CHEM 7 (LYTES,BUN,CREA,GLUC) on 08-10-2024 Anion gap [Moles/Vol] 16 mmol/L 7 - 17 mmol/L [facility] Chloride [Moles/Vol] 103 mmol/L 98 - 10 8 mmol/L [facility] CO2 [Moles/Vol] 24 mmol/L 21 - 31 mmol/L [facility] Creatinine [Mass/Vol] 1.36 mg/dL High 0.50 - 1.20 mg/dL [facility] eGFR, CKD-EPI, Female 40 Low - PINF [facility] Glucose [Mass/Vol] 186 mg/dL High 70 - 179 mg/dL [facility] Interpretation and review of laboratory results Abnormal [facility] Osmolality Calc [Osmolality] 308 High [facility] Potassium [Moles/Vol] 4.9 mmol/L 3.5 - 5.0 mmol/L [facility] Sodium [Moles/Vol] 138 mmol/L 135 - 145 mmol/L [facility] Urea nitrogen [Mass/Vol] 47 mg/dL High 7 - 25 mg/dL [facility] Urea nitrogen/Creatinine [Mass ratio] 35 mg/mg [facility] Anion gap [Moles/Vol] 16 mmol/L Normal 7-17 [facility] Comment on above: Performed By: #### Jaiden NGUYEN CHM7 ####[facility] (DEFAULT)[address] [place] [address] Chloride [Moles/Vol] 103 mmol/L Normal 98-108 [facility] Comment on above: Performed By: #### M WENDY, CHM7 ####[facility] (DEFAULT)[address] [facility] [place] [address] CO2 [Moles/Vol] 24 mmol/L Normal 21-31 [facility] Comment on above: Performed By: #### HEYDI PALACIOS7 ####[facility] (DEFAULT)[address] [facility] [place] [address] Creatinine [Mass/Vol] 1.36 mg/dL High 0.50-1.20 [facility] Comment on above: Performed By: #### HEYDI PALACIOS7 ####[facility] (DEFAULT)[address] [place] [address] GFR/1.73 sq M.predicted among non-blacks MDRD (S/P/Bld) [Vol rate/Area] 40 mL/min/{1.73_m2} Low >=60 [facility] Comment on above: Result Comment: Repo rted eGFR is based on the CKD-EPI 2020 equation using creatinine, age, and sex. Performed By: #### CAMERON PALACIOS ####[facility] (DEFAULT)[address] [place] [address] Glucose [Mass/Vol] 186 mg/dL High Nonfastin -179 mg/dL; Fastin-99 [facility] Comment on above: Performed By: #### CAMERON PALACIOS ####[facility] (DEFAULT)[address] [place] [address], [place] [address] Osmolality [Osmolality] 308 mosm/kg High 278-305 [facility] Comment on above: Performed By: #### CAMERON PALACIOS ####[facility] (DEFAULT)[address] [place] [address] Potassium [Moles/Vol] 4.9 mmol/L Normal 3.5-5.0 [facility] Comment on above: Performed By: #### HEYDI PALACIOS7 ####[facility] (DEFAULT)[address] [place] [address] Sodium [Moles/Vol] 138 mmol/L Normal 135-145 [facility] Comment on above: Performed By: #### Jaiden NGUYEN CHM7 ####[facility] (DEFAULT)[address] [place] [address] Urea nitrogen [Mass/Vol] 47 mg/dL High 7-25 [facility] Comment on above: Performed By: #### Jaiden NGUYEN CHM7 ####[facility] (DEFAULT)[address] [place] [address] Urea nitrogen/Creatinine [Mass ratio] 35 mg/mg Normal [facility] Comment on above: Performed By: #### Jaiden NGUYEN CHM7 ####[facility] (DEFAULT)[address] [place] [address] GLUCOSE POCon 08-10-2024 Glucose [Mass/Vol] 144 mg/dL 70 - 179 mg/dL [facility] POC Sample Type CAPBL [facility] Glucose [Mass/Vol] 177 mg/dL 70 - 179 mg/dL [facility] POC Sample Type CAPBL [facility] Glucose [Mass/Vol] 180 mg/dL High 70 - 179 mg/dL [facility] Interpretation and review of laboratory results Abnormal [facility] POC Sample Type CAPBL [facility] Glucose [Mass/Vol] 193 mg/dL High 70 - 179 mg/dL [facility] Interpretation and review of laboratory results Abnormal [facility] POC Sample Type [facility] Glucose [Mass/Vol] 200 mg/dL High 70 - 179 mg/dL [facility] Interpretation and review of laboratory results Abnormal [facility] POC Sample Type CAPBL [facility] Glucose [Mass/Vol] 198 mg/dL High 70 - 179 mg/dL [facility] Interpretation and review of laboratory results Abnormal [facility] POC Sample Type CAPBL [facility] MAGNESIUMon 08-10-2024 Interpretation and review of laboratory results Normal [facility] Magnesium [Mass/Vol] 1.8 mg/dL 1.6 - 2 .6 mg/dL [facility] Magnesium [Mass/Vol] 1.8 mg/dL Normal 1.6-2.6 [facility] Comment on above: Performed By: #### M CAMERON NGUYEN ####[facility] (DEFAULT)[address] [place] [address] No Panel Informationon 08-10 [facility] URINE CULTUREOrdered By: Franklin Carcamo on 08-10-2024 Bacteria identified Cx Nom (Unsp spec) Growth [facility] Bacteria identified Cx Nom (Unsp spec) KLEBSIELLA PNEUMONIAE Abnormal [facility] Interpretation and review of laboratory results Abnormal [facility] CBC,PLATELETSon 08-09-2024 Erythrocyte distribution width (RBC) [Ratio] 13.5 % 10.8 - 14.9 % [facility] Hematocrit (Bld) [Volume fraction] 44.4 % High 34.9 - 44.3 % [facility] Hemoglobin (Bld) [Mass/Vol] 14.1 g/dL 11.4 - 15.2 g/dL [facility] Interpretation and review of laboratory results Abnormal [facility] MCH (RBC) [Entitic mass] 29.4 pg 25.9 - 33.9 pg [facility] MCHC (RBC) [Mass/Vol] 31.8 g/dL 31.4 - 35.9 g/dL [facility] MCV (RBC) [Entitic vol] 92.7 fL 79.6 - 97.7 fL [facility] Platelet mean volume (Bld) [Entitic vol] 11.5 fL 8.5 - 12.2 fL [facility] Platelets (Bld) [#/Vol] 226 10*3/uL 150 - 393 K/uL [facility] RBC (Bld) [#/Vol] 4.79 10*6/uL [facility] WBC (Bld) [#/Vol] 12.37 10*3/uL High 3.99 - 11.19 K/uL [facility] Hematocrit (Bld) [Volume fraction] 44.4 % High 34.9-44.3 [facility] Comment on above: Performed By: #### H EMO #### [facility] (DEFAULT) [address] [place] [address]57 Hemoglobin (Bld) [Mass/Vol] 14.1 g/dL Normal 11.4-15.2 [facility] Comment on above: Performed By: #### H EMO #### [facility] (DEFAULT) [address] [place] [address] 49393 MCV (RBC) [Entitic vol] 92.7 fL Normal 79.6-97.7 O [facility] Comment on above: Performed By: #### H EMOGC #### [facility] (DEFAULT) [address] [place] [address] 27660 Mean Cell Hgb 29.4 pg Normal 25.9-33.9 [facility] Comment on above: Performed By: #### H EMOGC #### [facility] (DEFAULT) [address] [place] [address] 67095 Mean Cell Hgb Conc 31.8 g/dL Normal 31.4-35.9 [facility] Comment on above: Performed By: #### H EMOGC #### [facility] (DEFAULT) [address] [place] [address] 89040 Platelet mean volume (Bld) [Entitic vol] 11.5 fL Normal 8.5-12.2 [facility] Comment on above: Performed By: #### H EMO #### [facility] (DEFAULT) [address] [place] [address] 57279 Platelets (Bld) [#/Vol] 226 10*3/uL Normal 150-393 [facility] Comment on above: Performed By: #### H EMO #### [facility] (DEFAULT) [address] [place] [address] 47154 RBC (Bld) [#/Vol] 4.79 10*6/uL Normal 3.91-5.04 [facility] Comment on above: Performed By: #### [place] [facility] [place] #### [facility] (DEFAULT) [address] [place] [address] 18998 RBC Distribution 13.5 % Normal 10.8-14.9 [facility] Comment on above: Performed By: #### H EMO #### [facility] (DEFAULT) [address] [place] [address] 41179 WBC (Bld) [#/Vol] 12.37 10*3/uL High 3.99-11.19 [facility] Comment on above: Performed By: #### [facility] [place] #### [facility] (DEFAULT) [address] [place] [address] 58653 CHEM 7 (LYTES,BUN,CREA,GLUC) on 08-09-2024 Anion gap [Moles/Vol] 14 mmol/L 7 - 17 mmol/L [facility] Chloride [Moles/Vol] 103 mmol/L 98 - 10 8 mmol/L [facility] CO2 [Moles/Vol] 26 mmol/L 21 - 31 mmol/L [facility] Creatinine [Mass/Vol] 1.35 mg/dL High 0.50 - 1.20 mg/dL [facility] eGFR, CKD-EPI, Female 40 Low - PINF [facility] Glucose [Mass/Vol] 182 mg/dL High 70 - 179 mg/dL [facility] Interpretation and review of laboratory results Abnormal [facility] Osmolality Calc [Osmolality] 305 [facility] Potassium [Moles/Vol] 4.9 mmol/L 3.5 - 5.0 mmol/L [facility] Sodium [Moles/Vol] 138 mmol/L 135 - 145 mmol/L [facility] Urea nitrogen [Mass/Vol] 38 mg/dL High 7 - 25 mg/dL [facility] Urea nitrogen/Creatinine [Mass ratio] 28 mg/mg [facility] Anion gap [Moles/Vol] 14 mmol/L Normal 7-17 [facility] Comment on above: Performed By: #### [facility] [place] #### [facility] (DEFAULT) [address] [address] Chloride [Moles/Vol] 103 mmol/L Normal 98-108 [facility] Comment on above: Performed By: #### [facility] [place] #### [facility] (DEFAULT) [address] [place] [address] 43572 CO2 [Moles/Vol] 26 mmol/L Normal 21-31 [facility] Comment on above: Performed By: #### [facility] [place] #### [facility] (DEFAULT) [address] [place] [address] 84699 Creatinine [Mass/Vol] 1.35 mg/dL High 0.50-1.20 [facility] Comment on above: Performed By: #### [facility] [place] #### [facility] (DEFAULT) [address] [place] [address] 64893 GFR/1.73 sq M.predicted among non-blacks MDRD (S/P/Bld) [Vol rate/Area] 40 mL/min/{1.73_m2} Low >=60 [facility] Comment on above: Result Comment: Repo rted eGFR is based on the CKD-EPI 2020 equation using creatinine, age, and sex. Performed By: #### [facility] [place] #### [facility] (DEFAULT) [address] [place] [address] 59762 Glucose [Mass/Vol] 182 mg/dL High Nonfastin -179 mg/dL; Fastin-99 [facility] Comment on above: Performed By: #### H EMOGC #### [facility] (DEFAULT) [address] [place] [address] 90324 Osmolality [Osmolality] 305 mosm/kg Normal 278-305 [facility] Comment on above: Performed By: #### H EMOGC #### [facility] (DEFAULT) [address] [place] [address] 81976 Potassium [Moles/Vol] 4.9 mmol/L Normal 3.5-5.0 [facility] Comment on above: Performed By: #### H EMO #### [facility] (DEFAULT) [address] [place] [address] 75562 Sodium [Moles/Vol] 138 mmol/L Normal 135-145 [facility] Comment on above: Performed By: #### H EMOGC #### [facility] (DEFAULT) [address] [place] [address] 15547 Urea nitrogen [Mass/Vol] 38 mg/dL High 7-25 [facility] Comment on above: Performed By: #### H EMOGC #### [facility] (DEFAULT) [address] [place] [address] 98187 Urea nitrogen/Creatinine [Mass ratio] 28 mg/mg Normal [facility] Comment on above: Performed By: #### H EMOGC #### [facility] (DEFAULT) [address] [place] [address] 85814 EXTRA MICROon 08-09-2024 [facility] GLUCOSE POCon 08-09-2024 Glucose [Mass/Vol] 186 mg/dL High 70 - 179 mg/dL [facility] Interpretation and review of laboratory results Abnormal [facility] POC Sample Type CAPBL [facility] Glucose [Mass/Vol] 255 mg/dL High 70 - 179 mg/dL [facility] Interpretation and review of laboratory results Abnormal [facility] POC Sample Type CAPBL [facility] Glucose [Mass/Vol] 235 mg/dL High 70 - 179 mg/dL [facility] Interpretation and review of laboratory results Abnormal [facility] POC Sample Type CAPBL [facility] Glucose [Mass/Vol] 167 mg/dL 70 - 179 mg/dL [facility] POC Sample Type CAPBL [facility] INTERVENTIONAL UPPER ENDOSCO PYon 08-09-2024 Body surface area Derived from formula 1.9 m2 [facility] LAB, [facility] Radiology Study observation (narrative) [facility] MAGNESIUMon 08-09-2024 Interpretation and review of laboratory results Normal [facility] Magnesium [Mass/Vol] 1.8 mg/dL 1.6 - 2 .6 mg/dL [facility] Magnesium [Mass/Vol] 1.8 mg/dL Normal 1.6-2.6 [facility] Comment on above: Performed By: #### H EMO #### [facility] (DEFAULT) [address] [place] [address] No Panel Informationon 08-09 [facility] PT,INR,PTTon 08-09-2024 aPTT Coag (PPP) [Time] 38.4 s High [facility] INR Coag (Bld) [Relative time] 1 {INR} 0.9 - 1.1 [facility] Interpretation and review of laboratory results Abnormal [facility] PT Coag (PPP) [Time] 13 s [facility] aPTT Coag (Bld) [Time] 38.4 s High 24.0-34.3 [facility] Comment on above: Performed By: #### B LDCULT #### [facility] (DEFAULT) [address] [place] [address]45 INR Coag (PPP) [Relative time] 1.0 {INR} Normal 0.9-1.1 [facility] Comment on above: Performed By: #### B LDCULT #### [facility] (DEFAULT) [address] [address] PT Coag (PPP) [Time] 13.0 s Normal 11.9-14.2 [facility] Comment on above: Performed By: #### B LDCULT #### [facility] (DEFAULT) [address] [place] [address] 17227 SURG PATH REQUESTon 08-10-19 Case Report [facility] Comment on above: Result Comment: Surg ical Pathology Report Case: [id number] Authorizing Provider: Judson Keith DO Collected: 08/09/2024 10:07 AM Ordering Location: [facility] Received: 08/09/2024 12:13 PM Pathologist: Renae Glez MD Specimen: STOMACH, gastric, r/o HP Performed By: #### S URGP #### [facility] (DEFAULT) [address] [place] [address] Clinical History R/O HP. Associated Diagnosis: None. Medical History: No medical history provided. [facility] Comment on above: Performed By: #### S URGP #### [facility] (DEFAULT) [address] [address] Gross Description Normal [facility] Comment on above: Result Comment: The specimen is received in one properly labeled container with the patient's name and accession number. A. The specimen is designated "gastric, r/o hp" and consists of five fragments of jackson-pink soft tissue, from 0.2 up to 0.6 cm in greatest dimension. TE 1 Lab Use Only: JobID [id number] Grosser for this case was: Sunshine Hidalgo Performed By: #### S URGP #### [facility] (DEFAULT) [address] [place] [address] 40339 Microscopic Description A microscopic examination was performed. Normal [facility] Comment on above: Performed By: #### S URGP #### [facility] (DEFAULT) [address] [place] [address] 81274 Pathologic Diagnosis Normal [facility] Comment on above: Result Comment: Anjelica echols, biopsy: Focal erosion No Helicobacter pylori identified at 1005 EDT Performed By: #### S URGP #### [facility] (DEFAULT) [address] [place] [address] 67446 Professional Interpretation Performed at: Normal [facility] Comment on above: Result Comment: [facility] For Immediate Release [facility] Yes [address] [address] Performed By: #### S URGP #### [facility] (DEFAULT) [address] [place] [address]641 CBC,PLATELETSon 08-08-2024 Erythrocyte distribution width (RBC) [Ratio] 13.6 % 10.8 - 14.9 % [facility] Hematocrit (Bld) [Volume fraction] 45.7 % High 34.9 - 44.3 % [facility] Hemoglobin (Bld) [Mass/Vol] 14.4 g/dL 11.4 - 15.2 g/dL [facility] Interpretation and review of laboratory results Abnormal [facility] MCH (RBC) [Entitic mass] 29.4 pg 25.9 - 33.9 pg [facility] MCHC (RBC) [Mass/Vol] 31.5 g/dL 31.4 - 35.9 g/dL [facility] MCV (RBC) [Entitic vol] 93.3 fL 79.6 - 97.7 fL [facility] Platelet mean volume (Bld) [Entitic vol] 10.9 fL 8.5 - 12.2 fL [facility] Platelets (Bld) [#/Vol] 212 10*3/uL 150 - 393 K/uL [facility] RBC (Bld) [#/Vol] 4.9 10*6/uL [facility] WBC (Bld) [#/Vol] 10.39 10*3/uL 3.99 - 11.19 K/uL [facility] Hematocrit (Bld) [Volume fraction] 45.7 % High 34.9-44.3 [facility] Comment on above: Performed By: #### H EMOGC #### [facility] (DEFAULT) [address] [place] [address] 98674 Hemoglobin (Bld) [Mass/Vol] 14.4 g/dL Normal 11.4-15.2 [facility] Comment on above: Performed By: #### H EMOGC #### [facility] (DEFAULT) [address] [place] [address] 37308 MCV (RBC) [Entitic vol] 93.3 fL Normal 79.6-97.7 [facility] Comment on above: Performed By: #### H EMOGC #### [facility] (DEFAULT) [address] [place] [address] 93232 Mean Cell Hgb 29.4 pg Normal 25.9-33.9 [facility] Comment on above: Performed By: #### H EMOGC #### [facility] (DEFAULT) [address] [place] [address] 69337 Mean Cell Hgb Conc 31.5 g/dL Normal 31.4-35.9 [facility] Comment on above: Performed By: #### H EMOGC #### [facility] (DEFAULT) [address] [place] [address] 56449 Platelet mean volume (Bld) [Entitic vol] 10.9 fL Normal 8.5-12.2 [facility] Comment on above: Performed By: #### H EMOGC #### [facility] (DEFAULT) [address] [place] [address] 56164 Platelets (Bld) [#/Vol] 212 10*3/uL Normal 150-393 [facility] Comment on above: Performed By: #### H EMOGC #### [facility] (DEFAULT) [address] [place] [address] RBC (Bld) [#/Vol] 4.90 10*6/uL Normal 3.91-5.04 [facility] Comment on above: Performed By: #### H EMO #### [facility] (DEFAULT) [address] [place] [address] RBC Distribution 13.6 % Normal 10.8-14.9 [facility] Comment on above: Performed By: #### [place] [facility] [place] #### [facility] (DEFAULT) [address] [place] [address] 24598 WBC (Bld) [#/Vol] 10.39 10*3/uL Normal 3.99-11.19 [facility] Comment on above: Performed By: #### [place] [facility] [place] #### [facility] (DEFAULT) [address] [place] [address] 83908 CHEM 7 (LYTES,BUN,CREA,GLUC) on 08-08-2024 Anion gap [Moles/Vol] 15 mmol/L 7 - 17 mmol/L [facility] Chloride [Moles/Vol] 104 mmol/L 98 - 10 8 mmol/L [facility] CO2 [Moles/Vol] 25 mmol/L 21 - 31 mmol/L [facility] Creatinine [Mass/Vol] 1.15 mg/dL 0.50 - 1.20 mg/dL [facility] eGFR, CKD-EPI, Female 48 Low - PINF [facility] Glucose [Mass/Vol] 111 mg/dL 70 - 179 mg/dL [facility] Interpretation and review of laboratory results Abnormal [facility] Osmolality Calc [Osmolality] 302 [facility] Potassium [Moles/Vol] 4.3 mmol/L 3.5 - 5.0 mmol/L [facility] Sodium [Moles/Vol] 140 mmol/L 135 - 145 mmol/L [facility] Urea nitrogen [Mass/Vol] 35 mg/dL High 7 - 25 mg/dL [facility] Urea nitrogen/Creatinine [Mass ratio] 30 mg/mg [facility] Anion gap [Moles/Vol] 15 mmol/L Normal 7-17 [facility] Comment on above: Performed By: #### Jaiden NGUYEN CHM7 ####[facility] (DEFAULT)[address] [place] [address] Chloride [Moles/Vol] 104 mmol/L Normal 98-108 [facility] Comment on above: Performed By: #### HEYDI PALACIOS7 ####[facility] (DEFAULT)[address] [place] [address] CO2 [Moles/Vol] 25 mmol/L Normal 21-31 [facility] Comment on above: Performed By: #### HEYDI PALACIOS7 ####[facility] (DEFAULT)[address] [place] [address] Creatinine [Mass/Vol] 1.15 mg/dL Normal 0.50-1.20 [facility] Comment on above: Performed By: #### HEYDI PALACIOS7 ####[facility] (DEFAULT)[address] [place] [address] GFR/1.73 sq M.predicted among non-blacks MDRD (S/P/Bld) [Vol rate/Area] 48 mL/min/{1.73_m2} Low >=60 [facility] Comment on above: Result Comment: Repo rted eGFR is based on the CKD-EPI 2020 equation using creatinine, age, and sex. Performed By: #### HEYDI PALACIOS7 ####[facility] (DEFAULT)[address] [place] [address] Glucose [Mass/Vol] 111 mg/dL Normal Nonfastin -179 mg/dL; Fastin-99 [facility] Comment on above: Performed By: #### HEYDI PALACIOS7 ####[facility] (DEFAULT)[address] [place] [address] Osmolality [Osmolality] 302 mosm/kg Normal 278-305 [facility] Comment on above: Performed By: #### Jaiden NGUYEN CHM7 ####[facility] (DEFAULT)[address] [place] [address] Potassium [Moles/Vol] 4.3 mmol/L Normal 3.5-5.0 [facility] Comment on above: Performed By: #### Jaiden NGUYEN CHM7 ####[facility] (DEFAULT)[address] [place] [address] Sodium [Moles/Vol] 140 mmol/L Normal 135-145 [facility] Comment on above: Performed By: #### Jaiden NGUYEN CHM7 ####[facility] (DEFAULT)[address] [place] [address] Urea nitrogen [Mass/Vol] 35 mg/dL High 7-25 [facility] Comment on above: Performed By: #### Jaiden NGUYEN CHM7 ####[facility] (DEFAULT)[address] [place] [address] Urea nitrogen/Creatinine [Mass ratio] 30 mg/mg Normal [facility] Comment on above: Performed By: #### Jaiden NGUYEN CHM7 ####[facility] (DEFAULT)[address] [place] [address] CT HEAD WITHOUT CONTRASTon 0 08-08-2024 CT [...] have reviewed and approved this report. Normal [facility] CT Head WO contraston 2024 RADIOLOGY RADIOLOGY [facility] Radiology Study observation (narrative) [facility] GLUCOSE POCon 08-08-2024 Glucose [Mass/Vol] 150 mg/dL 70 - 179 mg/[facility] Sample Type CAPBL [facility] Glucose [Mass/Vol] 148 mg/dL 70 - 179 mg/dL [facility] POC Sample Type CAPBL [facility] Glucose [Mass/Vol] 192 mg/dL High 70 - 179 mg/dL [facility] Interpretation and review of laboratory results Abnormal [facility] POC Sample Type CAPBL [facility] Glucose [Mass/Vol] 198 mg/dL High 70 - 179 mg/dL [facility] Interpretation and review of laboratory results Abnormal [facility] POC Sample Type CAPBL [facility] Glucose [Mass/Vol] 186 mg/dL High 70 - 179 mg/dL [facility] Interpretation and review of laboratory results Abnormal [facility] POC Sample Type CAPBL [facility] MAGNESIUMon 08-08-2024 Interpretation and review of laboratory results [facility] Magnesium [Mass/Vol] 1.7 mg/dL 1.6 - 2 .6 mg/dL [facility] Magnesium [Mass/Vol] 1.7 mg/dL Normal 1.6-2.6 [facility] Comment on above: Performed By: #### M [facility] ####[facility] (DEFAULT)[address] [place] [address] No Panel Informationon 08-08 [facility] URINALYSIS REFLEX TO CULTURE PERFORMABLEOrdered By: Danya Yates on 08-08-2024 Appearance (U) Cloudy Abnormal Clear [facility] Bacteria LM Ql (Urine sed) PRESENT Abnormal ABSENT [facility] Color (U) Yellow Yellow [facility] Epithelial cells.squamous LM Ql (Urine sed) 0-2/hpf 0-2/hpf, 3-5/hpf = 1+ [facility] Glucose Test strip (U) [Mass/Vol] Negative Negative [facility] Interpretation and review of laboratory results [facility] Ketones (U) [Mass/Vol] Trace Abnormal Negative OS [facility] Leukocyte esterase Test strip Ql (U) Large Abnormal Negative [facility] Nitrite Ql (U) Positive Abnormal [facility] pH (U) 7.0 [pH] 5.0 - 7.0 [facility] Protein (U) [Mass/Vol] Trace Abnormal Negative OS [facility] RBC (U) [#/Vol] Trace Abnormal Negative [facility] RBC LM.HPF (Urine sed) [#/Area] 6-10 [facility] Specific gravity (U) [Rel density] 1.023 1.001 - 1.035 [facility] Urobilinogen (U) [Mass/Vol] 1.0 E.U./dL 0.2 E.U/dL, 1.0 E.U/dL [facility] WBC LM.HPF (Urine sed) [#/Area] /[HPF] Abnormal [facility] URINALYSIS REFLEX TO CULTURE PERFORMABLEon 08-08-2024 Appearance (U) Cloudy Abnormal Clear [facility] Comment on above: Order Comment: For i ndwelling catheters, specimen collection is acceptable on catheter day 1 and 2 only. ? Performed By: #### T YPEC #### [facility] (DEFAULT) [address] [place] [address] Bacteria PRESENT Abnormal ABSENT [facility] Comment on above: Order Comment: For i ndwelling catheters, specimen collection is acceptable on catheter day 1 and 2 only. ? Performed By: #### T YPEC #### [facility] (DEFAULT) [address] [place] [address] Blood Urine Trace Abnormal Negative [facility] Comment on above: Order Comment: For i ndwelling catheters, specimen collection is acceptable on catheter day 1 and 2 only. ? Performed By: #### T YPEC #### [facility] (DEFAULT) [address] [place] [address] Color (U) Yellow Normal Yellow [facility] Comment on above: Order Comment: For i ndwelling catheters, specimen collection is acceptable on catheter day 1 and 2 only. ? Performed By: #### T YPEC #### [facility] (DEFAULT) [address] [place] [address] Glucose Ql (U) Negative Normal Negative [facility] Comment on above: Order Comment: For i ndwelling catheters, specimen collection is acceptable on catheter day 1 and 2 only. ? Performed By: #### T YPEC #### [facility] (DEFAULT) [address] [place] [address] Ketones Ql (U) Trace Abnormal Negative [facility] Comment on above: Order Comment: For i ndwelling catheters, specimen collection is acceptable on catheter day 1 and 2 only. ? Performed By: #### T YPEC #### [facility] (DEFAULT) [address] [place] [address] Leukocyte esterase Test strip Ql (U) Large Abnormal Negative [facility] Comment on above: Order Comment: For i ndwelling catheters, specimen collection is acceptable on catheter day 1 and 2 only. ? Performed By: #### T YPEC #### [facility] (DEFAULT) [address] [place] [address] Nitrites Urine Positive Abnormal Negative [facility] Comment on above: Order Comment: For i ndwelling catheters, specimen collection is acceptable on catheter day 1 and 2 only. ? Performed By: #### T YPEC #### [facility] (DEFAULT) [address] [address] pH (U) 7.0 [pH] Normal 5.0-7.0 [facility] Comment on above: Order Comment: For i ndwelling catheters, specimen collection is acceptable on catheter day 1 and 2 only. ? Performed By: #### T YPEC #### [facility] (DEFAULT) [address] [place] [address]658 Protein Urine Trace Abnormal Negative [facility] Comment on above: Order Comment: For i ndwelling catheters, specimen collection is acceptable on catheter day 1 and 2 only. ? Performed By: #### T YPEC #### [facility] (DEFAULT) [address] [address] RBC Urine 6-10 Abnormal 0-2 [facility] Comment on above: Order Comment: For i ndwelling catheters, specimen collection is acceptable on catheter day 1 and 2 only. ? Performed By: #### T YPEC #### [facility] (DEFAULT) [address] [address] Specific Vida Urine 1.023 Normal 1.001-1.035 O [facility] Comment on above: Order Comment: For i ndwelling catheters, specimen collection is acceptable on catheter day 1 and 2 only. ? Performed By: #### T YPEC #### [facility] (DEFAULT) [address] [address] Squamous/Epithelial Cells, Urine 0-2/hpf Normal 0-2/hpf, 3-5/hpf = 1+ [facility] Comment on above: Order Comment: For i ndwelling catheters, specimen collection is acceptable on catheter day 1 and 2 only. ? Performed By: #### T YPEC #### [facility] (DEFAULT) [address] [address] Urobilinogen Urine 1.0 E.U./dL Normal 0.2 E.U/d L, 1.0 E.U/dL [facility] Comment on above: Order Comment: For i ndwelling catheters, specimen collection is acceptable on catheter day 1 and 2 only. ? Performed By: #### T YPEC #### [facility] (DEFAULT) [address] [address] WBC LM.HPF (Urine sed) [#/Area] /[HPF] Abnormal 0 - 5 [facility] Comment on above: Order Comment: For i ndwelling catheters, specimen collection is acceptable on catheter day 1 and 2 only. ? Performed By: #### T YPEC #### [facility] (DEFAULT) [address] [address] URINE CULTUREon 08-08-2024 Amikacin [Susceptibility] <= Invalid Interpretation Code [facility] Comment on above: Order Comment: For i [...] ? Performed By: #### T YPEC #### [facility] (DEFAULT) [address] [address] Ampicillin [Susceptibility] >=32 Resistant [facility] Comment on above: Order Comment: For i [...] ? Performed By: #### T YPEC #### [facility] (DEFAULT) [address] [place] [address] Ampicillin+Sulbactam [Susceptibility] >=32 Resistant [facility] Comment on above: Order Comment: For i [...] ? Performed By: #### T YPEC #### [facility] (DEFAULT) [address] [place] [address] ceFAZolin [Susceptibility] >= Resistant [facility] Comment on above: Order Comment: For i [...] cefdinir. Performed By: #### T YPEC #### [facility] (DEFAULT) [address] [place] [address] Cefepime [Susceptibility] <= Invalid Interpretation Code [facility] Comment on above: Order Comment: For i [...] ? Performed By: #### T YPEC #### [facility] (DEFAULT) [address] [place] [address] cefTRIAXone [Susceptibility] <= Invalid Interpretation Code [facility] Comment on above: Order Comment: For i [...] ? Performed By: #### T YPEC #### [facility] (DEFAULT) [address] [address] Ciprofloxacin [Susceptibility] >= Resistant [facility] Comment on above: Order Comment: For i [...] ? Performed By: #### T YPEC #### [facility] (DEFAULT) [address] [address] Ertapenem [Susceptibility] <= Invalid Interpretation Code [facility] Comment on above: Order Comment: For i [...] ? Performed By: #### T YPEC #### [facility] (DEFAULT) [address] [address] Gentamicin [Susceptibility] <= Invalid Interpretation Code [facility] Comment on above: Order Comment: For i [...] ? Performed By: #### T YPEC #### [facility] (DEFAULT) [address] [address] levoFLOXacin [Susceptibility] >= Resistant [facility] Comment on above: Order Comment: For i [...] ? Performed By: #### T YPEC #### [facility] (DEFAULT) [address] [address] Nitrofurantoin [Susceptibility] 128 ug/mL Resistant [facility] Comment on above: Order Comment: For i [...] ? Performed By: #### T YPEC #### [facility] (DEFAULT) [address] [address] Piperacillin+Tazobactam [Susceptibility] 8 ug/mL Invalid Interpretation Code [facility] Comment on above: Order Comment: For i [...] ? Performed By: #### T YPEC #### [facility] (DEFAULT) [address] [address] Trimethoprim+Sulfametho xazole [Susceptibility] <= Invalid Interpretation Code [facility] Comment on above: Order Comment: For i [...] ? Performed By: #### T YPEC #### [facility] (DEFAULT) [address] [address] CBC,PLATELETSon 08-07-2024 Erythrocyte distribution width (RBC) [Ratio] 13.9 % 10.8 - 14.9 % [facility] Hematocrit (Bld) [Volume fraction] 43.1 % 34.9 - 44.3 % [facility] Hemoglobin (Bld) [Mass/Vol] 13.7 g/dL 11.4 - 15.2 g/dL [facility] Interpretation and review of laboratory results Abnormal [facility] MCH (RBC) [Entitic mass] 29.6 pg 25.9 - 33.9 pg [facility] MCHC (RBC) [Mass/Vol] 31.8 g/dL 31.4 - 35.9 g/dL [facility] MCV (RBC) [Entitic vol] 93.1 fL 79.6 - 97.7 fL [facility] Platelet mean volume (Bld) [Entitic vol] 11.1 fL 8.5 - 12.2 fL [facility] Platelets (Bld) [#/Vol] 214 10*3/uL 150 - 393 K/uL [facility] RBC (Bld) [#/Vol] 4.63 10*6/uL [facility] WBC (Bld) [#/Vol] 11.3 10*3/uL High 3.99 - 11.19 K/uL [facility] CHEM 7 (LYTES,BUN,CREA,GLUC) on 08-07-2024 Anion gap [Moles/Vol] 13 mmol/L 7 - 17 mmol/L [facility] Chloride [Moles/Vol] 105 mmol/L 98 - 10 8 mmol/L [facility] CO2 [Moles/Vol] 28 mmol/L 21 - 31 mmol/L [facility] Creatinine [Mass/Vol] 1.19 mg/dL 0.50 - 1.20 mg/dL [facility] eGFR, CKD-EPI, Female 47 Low - PINF [facility] Glucose [Mass/Vol] 90 mg/dL 70 - 179 mg/dL [facility] Interpretation and review of laboratory results Abnormal [facility] Osmolality Calc [Osmolality] [facility] Potassium [Moles/Vol] 4.2 mmol/L 3.5 - 5.0 mmol/L [facility] Sodium [Moles/Vol] 142 mmol/L 135 - 145 mmol/L [facility] Urea nitrogen [Mass/Vol] 34 mg/dL High 7 - 25 mg/dL [facility] Urea nitrogen/Creatinine [Mass ratio] 29 mg/mg [facility] GLUCOSE POCon 08-07-2024 Glucose [Mass/Vol] 185 mg/dL High 70 - 179 mg/dL [facility] Interpretation and review of laboratory results Abnormal [facility] Glucose [Mass/Vol] 106 mg/dL 70 - 179 mg/dL [facility] POC Sample Type [facility] Glucose [Mass/Vol] 104 mg/dL 70 - 179 mg/dL [facility] MAGNESIUMon 08-07-2024 Interpretation and review of laboratory results Normal [facility] Magnesium [Mass/Vol] 1.8 mg/dL 1.6 - 2 .6 mg/dL [facility] No Panel Informationon 08-07 [facility] CBC,PLATELETSon 08-06-2024 Hematocrit (Bld) [Volume fraction] 43.1 % Normal 34.9-44.3 [facility] Comment on above: Performed By: #### X M #### [facility] (DEFAULT) [address] [place] [address] Hemoglobin (Bld) [Mass/Vol] 13.7 g/dL Normal 11.4-15.2 [facility] Comment on above: Performed By: #### X M #### [facility] (DEFAULT) [address] [place] [address] MCV (RBC) [Entitic vol] 93.1 fL Normal 79.6-97.7 [facility] Comment on above: Performed By: #### X M #### [facility] (DEFAULT) [address] [place] [address] Mean Cell Hgb 29.6 pg Normal 25.9-33.9 [facility] Comment on above: Performed By: #### X M #### [facility] (DEFAULT) [address] [place] [address] Mean Cell Hgb Conc 31.8 g/dL Normal 31.4-35.9 [facility] Comment on above: Performed By: #### X M #### [facility] (DEFAULT) [address] [place] [address] Platelet mean volume (Bld) [Entitic vol] 11.1 fL Normal 8.5-12.2 [facility] Comment on above: Performed By: #### X M #### [facility] (DEFAULT) [address] [place] [address] Platelets (Bld) [#/Vol] 214 10*3/uL Normal 150-393 [facility] Comment on above: Performed By: #### X M #### [facility] (DEFAULT) [address] [place] [address] RBC (Bld) [#/Vol] 4.63 10*6/uL Normal 3.91-5.04 [facility] Comment on above: Performed By: #### X M #### [facility] (DEFAULT) [address] [place] [address] RBC Distribution 13.9 % Normal 10.8-14.9 [facility] Comment on above: Performed By: #### X M #### [facility] (DEFAULT) [address] [place] [address] WBC (Bld) [#/Vol] 11.30 10*3/uL High 3.99-11.19 [facility] Comment on above: Performed By: #### X M #### [facility] (DEFAULT) [address] [place] [address] Erythrocyte distribution width (RBC) [Ratio] 13.9 % 10.8 - 14.9 % [facility] Hematocrit (Bld) [Volume fraction] 44 % 34.9 - 44.3 % [facility] Hemoglobin (Bld) [Mass/Vol] 13.9 g/dL 11.4 - 15.2 g/dL [facility] Interpretation and review of laboratory results Abnormal [facility] MCH (RBC) [Entitic mass] 29.1 pg 25.9 - 33.9 pg [facility] MCHC (RBC) [Mass/Vol] 31.6 g/dL 31.4 - 35.9 g/dL [facility] MCV (RBC) [Entitic vol] 92.2 fL 79.6 - 97.7 fL [facility] Platelet mean volume (Bld) [Entitic vol] 10.7 fL 8.5 - 12.2 fL [facility] Platelets (Bld) [#/Vol] 216 10*3/uL 150 - 393 K/uL [facility] RBC (Bld) [#/Vol] 4.77 10*6/uL [facility] WBC (Bld) [#/Vol] 12.14 10*3/uL High 3.99 - 11.19 K/uL [facility] CHEM 7 (LYTES,BUN,CREA,GLUC) on 08-06-2024 Anion gap [Moles/Vol] 13 mmol/L Normal 7-17 [facility] Comment on above: Performed By: #### M GO, CHM7 ####[facility] (DEFAULT)[address] [place] [address] Chloride [Moles/Vol] 105 mmol/L Normal 98-108 [facility] Comment on above: Performed By: #### HEYDI PALACIOS7 ####[facility] (DEFAULT)[address] [place] [address] CO2 [Moles/Vol] 28 mmol/L Normal 21-31 [facility] Comment on above: Performed By: #### HEYDI PALACIOS7 ####[facility] (DEFAULT)[address] [place] [address] Creatinine [Mass/Vol] 1.19 mg/dL Normal 0.50-1.20 [facility] Comment on above: Performed By: #### HEYDI PALACIOS7 ####[facility] (DEFAULT)[address] [place] [address], [place] [address] GFR/1.73 sq M.predicted among non-blacks MDRD (S/P/Bld) [Vol rate/Area] 47 mL/min/{1.73_m2} Low >=60 [facility] Comment on above: Result Comment: Repo rted eGFR is based on the CKD-EPI 2020 equation using creatinine, age, and sex. Performed By: #### HEYDI PALACIOS7 ####[place] [facility] (DEFAULT)[address] [place] [address], [place] [address] Glucose [Mass/Vol] 90 mg/dL Normal Nonfastin -179 mg/dL; Fastin-99 [facility] Comment on above: Performed By: #### HEYDI PALACIOS7 ####[facility] (DEFAULT)[address] [place] [address] Osmolality [Osmolality] 304 mosm/kg Normal 278-305 [facility] Comment on above: Performed By: #### HEYDI PALACIOS7 ####[facility] (DEFAULT)[address] [place] [address] Potassium [Moles/Vol] 4.2 mmol/L Normal 3.5-5.0 [facility] Comment on above: Performed By: #### Jaiden NGUYEN CHM7 ####[facility] (DEFAULT)[address] [place] [address] Sodium [Moles/Vol] 142 mmol/L Normal 135-145 [facility] Comment on above: Performed By: #### Jaiden NGUYEN CHM7 ####[facility] (DEFAULT)[address] [place] [address] Urea nitrogen [Mass/Vol] 34 mg/dL High 7-25 [facility] Comment on above: Performed By: #### Jaiden NGUYEN CHM7 ####[facility] (DEFAULT)[address] [facility] [place] [address] Urea nitrogen/Creatinine [Mass ratio] 29 mg/mg Normal [facility] Comment on above: Performed By: #### Jaiden NGUYEN CHM7 ####[facility] (DEFAULT)[address] [facility] [place] [address] Anion gap [Moles/Vol] 14 mmol/L 7 - 17 mmol/L [facility] Chloride [Moles/Vol] 107 mmol/L 98 - 10 8 mmol/L [facility] CO2 [Moles/Vol] 27 mmol/L 21 - 31 mmol/L [facility] Creatinine [Mass/Vol] 1.19 mg/dL 0.50 - 1.20 mg/dL [facility] eGFR, CKD-EPI, Female 47 Low - PINF [facility] Glucose [Mass/Vol] 88 mg/dL 70 - 179 mg/dL [facility] Interpretation and review of laboratory results Abnormal [facility] Osmolality Calc [Osmolality] 307 High [facility] Potassium [Moles/Vol] 3.9 mmol/L 3.5 - 5.0 mmol/L [facility] Sodium [Moles/Vol] 144 mmol/L 135 - 145 [facility] Urea nitrogen [Mass/Vol] 34 mg/dL High 7 - 25 mg[facility] Urea nitrogen/Creatinine [Mass ratio] 29 mg/[facility] GLUCOSE POCon 08-06-2024 Glucose [Mass/Vol] 166 mg/dL 70 - 179 mg/[facility] Glucose [Mass/Vol] 106 mg/dL 70 - 179 mg/[facility] Glucose [Mass/Vol] 100 mg/dL 70 - 179 mg/dL [facility] POC Sample Type [facility] Glucose [Mass/Vol] 219 mg/dL High 70 - 179 mg/dL [facility] Interpretation and review of laboratory results Abnormal [facility] Glucose [Mass/Vol] 249 mg/dL High 70 - 179 mg/dL [facility] Glucose [Mass/Vol] 178 mg/dL 70 - 179 mg/dL [facility] Glucose [Mass/Vol] 194 mg/dL High 70 - 179 mg/[facility] Glucose [Mass/Vol] 93 mg/dL 70 - 179 mg/dL [facility] POC Sample Type VENO [facility] IONIZED CALCIUM, WHOLE BLOOD Ordered By: Zuleika Blunt on 08-06-2024 Calcium.ionized (Bld) [Moles/Vol] 4.72 mg/dL 4.60 - 5.30 mg/dL [facility] Interpretation and review of laboratory results Normal [facility] MAGNESIUMon 08-06-2024 Magnesium [Mass/Vol] 1.8 mg/dL Normal 1.6-2.6 [facility] Comment on above: Performed By: #### M [facility]Y [facility] ####[facility] (DEFAULT)[address] [place] [address] Magnesium [Mass/Vol] 2.4 mg/dL 1.6 - 2 .6 mg/dL [facility] No Panel Informationon 08-06 POC Sample Type CAPBL [facility] Interpretation and review of laboratory results Abnormal [facility] POC Sample Type CAPBL [facility] Interpretation and review of laboratory results Normal [facility] PHOSPHATE, INORGANICon 08-06 Phosphate [Mass/Vol] 3.2 mg/dL 2.2 - 4 .6 mg/dL [facility] RF videography Hypopharynx a nd Esophagus Views W liquid and paste contrast PO during swallowingon 08-06-2024 RADIOLOGY RADIOLOGY [facility] Radiology Study observation (narrative) [facility] RF videography Hypopharynx a nd Esophagus Views W liquid and paste contrast PO during swallowingOrdered By: Gerry Resendez on 08-06-2024 [facility] Work Phone: SPEECH MODIFIED BARIUM SWALL OWon 08-06-2024 [facility] XR FLUORO MODIFIED BARIUM SW ALLOW [...] for specific therapeutic recommendations, please see the pollution control engineer report of the speech pathologist. Examination performed by ARCADIO Nicole, under the direct supervision of Gerry Resendez M.D., who was immediately available on site during the examination. I personally viewed and interpreted these images and I have reviewed and approved this report. Normal [facility] CBC,PLATELETSon 08-05-2024 Hematocrit (Bld) [Volume fraction] 44.0 % Normal 34.9-44.3 [facility] Comment on above: Performed By: #### B LDCULT #### [facility] (DEFAULT) [address] [address] Hemoglobin (Bld) [Mass/Vol] 13.9 g/dL Normal 11.4-15.2 [facility] Comment on above: Performed By: #### B LDCULT #### [facility] (DEFAULT) [address] [address] MCV (RBC) [Entitic vol] 92.2 fL Normal 79.6-97.7 [facility] Comment on above: Performed By: #### B LDCULT #### [facility] (DEFAULT) [address] [address] Mean Cell Hgb 29.1 pg Normal 25.9-33.9 [facility] Comment on above: Performed By: #### B LDCULT #### [facility] (DEFAULT) [address] [address] Mean Cell Hgb Conc 31.6 g/dL Normal 31.4-35.9 [facility] Comment on above: Performed By: #### B LDCULT #### [facility] (DEFAULT) [address] [address] Platelet mean volume (Bld) [Entitic vol] 10.7 fL Normal 8.5-12.2 [facility] Comment on above: Performed By: #### B LDCULT #### [facility] (DEFAULT) [address] [place] [address] Platelets (Bld) [#/Vol] 216 10*3/uL Normal 150-393 [facility] Comment on above: Performed By: #### B LDCULT #### [facility] (DEFAULT) [address] [place] [address] RBC (Bld) [#/Vol] 4.77 10*6/uL Normal 3.91-5.04 [facility] Comment on above: Performed By: #### B LDCULT #### [facility] (DEFAULT) [address] [place] [address] RBC Distribution 13.9 % Normal 10.8-14.9 [facility] Comment on above: Performed By: #### B LDCULT #### [facility] (DEFAULT) [address] [place] [address] WBC (Bld) [#/Vol] 12.14 10*3/uL High 3.99-11.19 [facility] Comment on above: Performed By: #### B LDCULT #### [facility] (DEFAULT) [address] [place] [address] Erythrocyte distribution width (RBC) [Ratio] 13.9 % 10.8 - 14.9 % [facility] Hematocrit (Bld) [Volume fraction] 39.6 % 34.9 - 44.3 % [facility] Hemoglobin (Bld) [Mass/Vol] 12.6 g/dL 11.4 - 15.2 g/dL [facility] Interpretation and review of laboratory results Normal [facility] MCH (RBC) [Entitic mass] 29.3 pg 25.9 - 33.9 pg [facility] MCHC (RBC) [Mass/Vol] 31.8 g/dL 31.4 - 35.9 g/dL [facility] MCV (RBC) [Entitic vol] 92.1 fL 79.6 - 97.7 fL [facility] Platelet mean volume (Bld) [Entitic vol] 10.7 fL 8.5 - 12.2 fL [facility] Platelets (Bld) [#/Vol] 198 10*3/uL 150 - 393 K/uL [facility] RBC (Bld) [#/Vol] 4.3 10*6/uL [facility] WBC (Bld) [#/Vol] 10.61 10*3/uL 3.99 - 11.19 K/uL [facility] Hematocrit (Bld) [Volume fraction] 39.6 % Normal 34.9-44.3 [facility] Comment on above: Performed By: #### H EMOGC ####[facility] (DEFAULT)[address] [place] [address] Hemoglobin (Bld) [Mass/Vol] 12.6 g/dL Normal 11.4-15.2 [facility] Comment on above: Performed By: #### H EMOGC ####[facility] (DEFAULT)[address] [place] [address] MCV (RBC) [Entitic vol] 92.1 fL Normal 79.6-97.7 [facility] Comment on above: Performed By: #### H EMOGC ####[facility] (DEFAULT)[address] [place] [address] Mean Cell Hgb 29.3 pg Normal 25.9-33.9 [facility] Comment on above: Performed By: #### H EMOGC ####[facility] (DEFAULT)[address] [place] [address] Mean Cell Hgb Conc 31.8 g/dL Normal 31.4-35.9 [facility] Comment on above: Performed By: #### H EMOGC ####[facility] (DEFAULT)[address] [place] [address] Platelet mean volume (Bld) [Entitic vol] 10.7 fL Normal 8.5-12.2 [facility] Comment on above: Performed By: #### H EMOGC ####[facility] (DEFAULT)[address] [place] [address] Platelets (Bld) [#/Vol] 198 10*3/uL Normal 150-393 [facility] Comment on above: Performed By: #### H EMOGC ####[facility] (DEFAULT)[address] [place] [address] RBC (Bld) [#/Vol] 4.30 10*6/uL Normal 3.91-5.04 [facility] Comment on above: Performed By: #### H EMOGC ####[facility] (DEFAULT)[address] [place] [address] RBC Distribution 13.9 % Normal 10.8-14.9 [facility] Comment on above: Performed By: #### H EMOGC ####[facility] (DEFAULT)[address] [place] [address] WBC (Bld) [#/Vol] 10.61 10*3/uL Normal 3.99-11.19 [facility] Comment on above: Performed By: #### H EMOGC ####[facility] (DEFAULT)[address] [place] [address] CHEM 7 (LYTES,BUN,CREA,GLUC) on 08-05-2024 Anion gap [Moles/Vol] 14 mmol/L Normal 7-17 [facility] Comment on above: Performed By: #### S URGP #### [facility] (DEFAULT) [address] [place] [address] Chloride [Moles/Vol] 107 mmol/L Normal 98-108 [facility] Comment on above: Performed By: #### S URGP #### [facility] (DEFAULT) [address] [place] [address] CO2 [Moles/Vol] 27 mmol/L Normal 21-31 [facility] Comment on above: Performed By: #### S URGP #### [facility] (DEFAULT) [address] [place] [address] Creatinine [Mass/Vol] 1.19 mg/dL Normal 0.50-1.20 [facility] Comment on above: Performed By: #### S URGP #### [facility] (DEFAULT) [address] [place] [address] GFR/1.73 sq M.predicted among non-blacks MDRD (S/P/Bld) [Vol rate/Area] 47 mL/min/{1.73_m2} Low >=60 [facility] Comment on above: Result Comment: Repo rted eGFR is based on the CKD-EPI 2020 equation using creatinine, age, and sex. Performed By: #### S URGP #### [facility] (DEFAULT) [address] [place] [address] Glucose [Mass/Vol] 88 mg/dL Normal Nonfastin -179 mg/dL; Fastin-99 [facility] Comment on above: Performed By: #### S URGP #### [facility] (DEFAULT) [address] [place] [address] Osmolality [Osmolality] 307 mosm/kg High 278-305 [facility] Comment on above: Performed By: #### S URGP #### [facility] (DEFAULT) [address] [place] [address] Potassium [Moles/Vol] 3.9 mmol/L Normal 3.5-5.0 [facility] Comment on above: Performed By: #### S URGP #### [facility] (DEFAULT) [address] [place] [address] Sodium [Moles/Vol] 144 mmol/L Normal 135-145 [facility] Comment on above: Performed By: #### S URGP #### [facility] (DEFAULT) [address] [place] [address] Urea nitrogen [Mass/Vol] 34 mg/dL High 7-25 [facility] Comment on above: Performed By: #### S URGP #### [facility] (DEFAULT) [address] [place] [address] Urea nitrogen/Creatinine [Mass ratio] 29 mg/mg Normal [facility] Comment on above: Performed By: #### S URGP #### [facility] (DEFAULT) [address] [place] [address] Anion gap [Moles/Vol] 14 mmol/L 7 - 17 mmol/L [facility] Chloride [Moles/Vol] 108 mmol/L 98 - 10 8 [facility]L [facility] CO2 [Moles/Vol] 25 mmol/L 21 - 31 mmol/L [facility] Creatinine [Mass/Vol] 1.45 mg/dL High 0.50 - 1.20 mg/dL [facility] eGFR, CKD-EPI, Female 37 Low - PINF [facility] Glucose [Mass/Vol] 242 mg/dL High 70 - 179 mg/dL [facility] Interpretation and review of laboratory results Abnormal [facility] Osmolality Calc [Osmolality] 315 High [facility] Potassium [Moles/Vol] 3.8 mmol/L 3.5 - 5.0 mmol/L [facility] Sodium [Moles/Vol] 143 mmol/L 135 - 145 mmol/L [facility] Urea nitrogen [Mass/Vol] 35 mg/dL High 7 - 25 mg/dL [facility] Urea nitrogen/Creatinine [Mass ratio] 24 mg/mg [facility] Anion gap [Moles/Vol] 14 mmol/L Normal 7-17 [facility] Comment on above: Performed By: #### X M #### [facility] (DEFAULT) [address] [place] [address] Chloride [Moles/Vol] 108 mmol/L Normal 98-108 [facility] Comment on above: Performed By: #### X M #### [facility] (DEFAULT) [address] [place] [address] CO2 [Moles/Vol] 25 mmol/L Normal 21-31 [facility] Comment on above: Performed By: #### X M #### [facility] (DEFAULT) [address] [address] Creatinine [Mass/Vol] 1.45 mg/dL High 0.50-1.20 [facility] Comment on above: Performed By: #### X M #### [facility] (DEFAULT) [address] [address] GFR/1.73 sq M.predicted among non-blacks MDRD (S/P/Bld) [Vol rate/Area] 37 mL/min/{1.73_m2} Low >=60 [facility] Comment on above: Result Comment: Repo rted eGFR is based on the CKD-EPI 2020 equation using creatinine, age, and sex. Performed By: #### X M #### [facility] (DEFAULT) [address] [address] Glucose [Mass/Vol] 242 mg/dL High Nonfastin -179 mg/dL; Fastin-99 [facility] Comment on above: Performed By: #### X M #### [facility] (DEFAULT) [address] [address] Osmolality [Osmolality] 315 mosm/kg High 278-305 [facility] Comment on above: Performed By: #### X M #### [facility] (DEFAULT) [address] [address] Potassium [Moles/Vol] 3.8 mmol/L Normal 3.5-5.0 [facility] Comment on above: Performed By: #### X M #### [facility] (DEFAULT) [address] [address] Sodium [Moles/Vol] 143 mmol/L Normal 135-145 [facility] Comment on above: Performed By: #### X M #### [facility] (DEFAULT) [address] [place] [address] Urea nitrogen [Mass/Vol] 35 mg/dL High 7- [facility] Comment on above: Performed By: #### X M #### [facility] (DEFAULT) [address] [place] [address] Urea nitrogen/Creatinine [Mass ratio] 24 mg/mg Normal [facility] Comment on above: Performed By: #### X M #### [facility] (DEFAULT) [address] [place] [address] Cardiac echo study Procedure Ordered By: Ezequiel Figueroa on 08-05-2024 Ao ASC index 1.56 cm/m2 [facility] Work Phone: [phone] Ao peak fidel 1.23 m/s [facility] Work Phone: [phone] Ao SOV index 1.56 cm/m2 [facility] Work Phone: [phone] Ao STJ index 1.36 cm/m2 [facility] Work Phone: [phone] Ao VTI 24.81 cm [facility] Work Phone: [phone] Ascending aorta 2.97 cm [facility] Work Phone: [phone] AV LVOT peak gradient 4 mmHg [facility] Work Phone: [phone] AV mean gradient [facility] Work Phone: [phone] AV peak gradient 6 mmHG [facility] Work Phone: [phone] AV valve area 2.72 cm2 [facility] Work Phone: [phone] AV Velocity Ratio 0.8 [facility] Work Phone: [phone] MARKUS (continuity Vmax) 2.55 cm2 [facility] Work Phone: [phone] MARKUS (continuity VTI) 2.72 cm2 [facility] Work Phone: [phone] MARKUS index (continuity Vmax) 1.34 m/s [facility] Work Phone: [phone] MARKUS index (continuity VTI) 1.43 cm2/m2 [facility] Work Phone: [phone] Avg e' pk fidel 0.09 m/s [facility] Work Phone: [phone] Body surface area Derived from formula 1.9 m2 [facility] Work Phone: [phone] BP EF 55 % [facility] Work Phone: [phone] DI (Vmax) 0.8 [facility] Work Phone: [phone] DI (VTI) 0.86 m/2 [facility] Work Phone: [phone] e' lateral pk fidel 0.0845 m/s [facility] Work Phone: [phone] e' lateral pk fidel 0.08 m/s [facility] Work Phone: [phone] e' septal pk fidel 0.0953 m/s [facility] Work Phone: [phone] e' septal pk fidel 0.1 m/s [facility] Work Phone: [phone] EF SP 2CH 56 [facility] Work Phone: [phone] EF SP 4CH 51 [facility] Work Phone: [phone] EST RAP 3 mmHg [facility] Work Phone: [phone] EST RVSP 29 mmHg [facility] Work Phone: [phone] FS 31 % [facility] Work Phone: [phone] IVC ostium 1.64 cm [facility] Work Phone: [phone] IVS 1.14 cm [facility] Work Phone: [phone] LA area 4CH 29.07 cm2 [facility] Work Phone: [phone] LA ESV BP (MOD) 86 [facility] Work Phone: [phone] LA ESV BP (MOD) index 45 mL/m2 [facility] Work Phone: [phone] LA ESV SP 2CH (MOD) 81 mL [facility] Work Phone: [phone] LA ESV SP 4CH (MOD) 93 mL [facility] Work Phone: [phone] LV EDV BP 88 mL [facility] Work Phone: [phone] LV EDV SP 2CH 85 mL [facility] Work Phone: [phone] LV EDV SP 4CH 86 mL [facility] Work Phone: [phone] LV ESV BP 40 mL [facility] Work Phone: [phone] LV ESV SP 2CH 37 mL [facility] Work Phone: [phone] LV ESV SP 4CH 42 mL [facility] Work Phone: [phone] LV mass 146.48 g [facility] Work Phone: [phone] LV Mass Index 77.1 g/m2 [facility] Work Phone: [phone] LV RWT 0.56 [facility] Work Phone: [phone] LV stroke volume BP (ml) 48 mL [facility] Work Phone: [phone] LV stroke volume index BP 25.26 mL/m2 [facility] Work Phone: [phone] LVIDD 3.93 cm [facility] Work Phone: [phone] LVIDS 2.7 cm [facility] Work Phone: [phone] LVOT area 3.17 cm2 [facility] Work Phone: [phone] LVOT diameter 2.01 cm [facility] Work Phone: [phone] LVOT peak fidel 0.99 m/s [facility] Work Phone: [phone] LVOT peak VTI 21.3 cm [facility] Work Phone: [phone] [facility]OT stroke volume 68 cm3 [facility] Phone: [phone] LVOT stroke volume index 35.55 ml/m2 [facility] Work Phone: [phone] MV mean gradient 3 mmHg [facility] Work Phone: [phone] MV peak gradient 6 mmHg [facility] Work Phone: [phone] MV valve area by continuity eq 2.61 cm2 [facility] Work Phone: [phone] MV VTI 25.92 cm [facility] Work Phone: [phone] MVA (continuity VTI) 2.6 cm [facility] Work Phone: [phone] [facility] AV VTI RATIO PRE STRESS 0.86 [facility] Work Phone: [phone] [facility] ECHO LV BIPLANE SYSTOLIC VOLUME INDEX 21.05 mL/m2 [facility] Work Phone: [facility] ECHO LV BP DIASTOLIC VOLUME INDEX 46.32 mL/m2 [facility] Work Phone: [phone] PV mean gradient 3 mmHg [facility] Work Phone: PV peak gradient 6 mmHg [facility] Work Phone: [phone] PV PK FIDEL 1.23 m/s [facility] Work Phone: [phone] PW 1.11 cm [facility] Work Phone: [phone] RA area 4CH (MOD) 22.74 cm2 [facility] Work Phone: RA vol index 4CH (MOD) 36.32 mL/m2 [facility] Work Phone: Right atrium volume 4 chamber method of disks 69 mL [facility] Work Phone: RV Area diastolic 17.5 cm2 [facility] Work Phone: RV Area systolic 11.9 cm2 [facility] Work Phone: RV basal diam 4.56 cm [facility] Work Phone: RV Fractional area change 32 % [facility] Work Phone: RV long diam 6.91 cm [facility] Work Phone: RV mid diam 2.91 cm [facility] Work Phone: RV S' 12.81 cm/s [facility] Work Phone: RVOT peak gradient 5 mmHg [facility] Work Phone: RVOT peak fidel 1.07 m/s [facility] Work Phone: RVOT peak VTI 20.1 cm [facility] Work Phone: Sinus 2.97 cm [facility] Work Phone: STJ 2.58 cm [facility] Work Phone: Stroke Volume 68 cm/mL [facility] Work Phone: Stroke volume index 36 [facility] Work Phone: TAPSE 2.08 cm [facility] Work Phone: TR pk grad 26 mmHg [facility] Work Phone: TR pk fidel 2.53 m/s [facility] Work Phone: [facility] Work Phone: Cardiac echo study Procedure on 08-05-2024 [facility] Radiology Study observation (narrative) [facility] ECHOCARDIOGRAMon 08-05-2024 Echocardiography ? No [...] from the original result were not included. [facility] Facility [facility] Patient Information Patient Name ArmandOctober Legal [...] Role Read Date Ezequiel Figueroa DO Echo [place] 08/05/2024 Left Heart Measurements LV - Systole [...] long di (more content not included)... Normal [facility] GLUCOSE POCon 08-05-2024 Glucose [Mass/Vol] 228 mg/dL High 70 - 179 mg/dL [facility] Interpretation and review of laboratory results Abnormal [facility] POC Sample Type CAPBL [facility] IONIZED CALCIUM, WHOLE BLOOD on 08-05-2024 ICA 4.72 mg/dL Normal 4.60-5.30 [facility] Comment on above: Performed By: #### S URGP #### [facility] (DEFAULT) [address] [address] ICA 4.69 mg/dL Normal 4.60-5.30 [facility] Comment on above: Performed By: #### S URGP #### [facility] (DEFAULT) [address] [address] IONIZED CALCIUM, WHOLE BLOOD Ordered By: Jairo Layton on 08-05-2024 Calcium.ionized (Bld) [Moles/Vol] 4.69 mg/dL 4.60 - 5.30 mg/dL [facility] Interpretation and review of laboratory results Normal [facility] MAGNESIUMon 08-05-2024 Magnesium [Mass/Vol] 2.4 mg/dL Normal 1.6-2.6 [facility] Comment on above: Performed By: #### S URGP #### [facility] (DEFAULT) [address] [address] Magnesium [Mass/Vol] 1.8 mg/dL 1.6 - 2 .6 mg/dL [facility] Magnesium [Mass/Vol] 1.8 mg/dL Normal 1.6-2.6 [facility] Comment on above: Performed By: #### X M #### [facility] (DEFAULT) [address] [place] [address] No Panel Informationon 08-05 Interpretation and review of laboratory results Normal [facility] PHOSPHATE, INORGANICon 08-05 Phosphorous 3.2 mg/dL Normal 2.2-4.6 [facility] Comment on above: Performed By: #### S URGP #### [facility] (DEFAULT) [address] [place] [address] Phosphate [Mass/Vol] 2.7 mg/dL 2.2 - 4 .6 mg/dL [facility] Phosphorous 2.7 mg/dL Normal 2.2-4.6 [facility] Comment on above: Performed By: #### X M #### [facility] (DEFAULT) [address] [place] [address] VON [facility] FACTOR AGOrde red By: Madhavi Mcelroy on 08-05-2024 Interpretation and review of laboratory results Abnormal [facility] vWf Ag actual/normal IA (PPP) [Relative mass conc] 230 % High 50 - 180 % [facility] CBC,PLATELETSon 08-04-2024 Erythrocyte distribution width (RBC) [Ratio] 13.7 % 10.8 - 14.9 % [facility] Hematocrit (Bld) [Volume fraction] 40.8 % 34.9 - 44.3 % [facility] Hemoglobin (Bld) [Mass/Vol] 12.7 g/dL 11.4 - 15.2 g/dL [facility] Interpretation and review of laboratory results Abnormal [facility] MCH (RBC) [Entitic mass] 28.7 pg 25.9 - 33.9 pg [facility] MCHC (RBC) [Mass/Vol] 31.1 g/dL Low 31.4 - 35.9 g/dL [facility] MCV (RBC) [Entitic vol] 92.1 fL 79.6 - 97.7 fL [facility] Platelet mean volume (Bld) [Entitic vol] 10.8 fL 8.5 - 12.2 fL [facility] Platelets (Bld) [#/Vol] 228 10*3/uL 150 - 393 K/uL [facility] RBC (Bld) [#/Vol] 4.43 10*6/uL [facility] WBC (Bld) [#/Vol] 11.41 10*3/uL High 3.99 - 11.19 K/uL [facility] Hematocrit (Bld) [Volume fraction] 40.8 % Normal 34.9-44.3 [facility] Comment on above: Performed By: #### [place] [facility] [place] #### [facility] (DEFAULT) [address] [address] Hemoglobin (Bld) [Mass/Vol] 12.7 g/dL Normal 11.4-15.2 [facility] Comment on above: Performed By: #### [place] [facility] [place] #### [facility] (DEFAULT) [address] [address] MCV (RBC) [Entitic vol] 92.1 fL Normal 79.6-97.7 [facility] Comment on above: Performed By: #### H EMOGC #### [facility] (DEFAULT) [address] [address] Mean Cell Hgb 28.7 pg Normal 25.9-33.9 [facility] Comment on above: Performed By: #### H EMOGC #### [facility] (DEFAULT) [address] [address] Mean Cell Hgb Conc 31.1 g/dL Low 31.4-35.9 [facility] Comment on above: Performed By: #### H EMOGC #### [facility] (DEFAULT) [address] [place] [address] Platelet mean volume (Bld) [Entitic vol] 10.8 fL Normal 8.5-12.2 [facility] Comment on above: Performed By: #### H EMOGC #### [facility] (DEFAULT) [address] [place] [address] Platelets (Bld) [#/Vol] 228 10*3/uL Normal 150-393 [facility] Comment on above: Performed By: #### H EMOGC #### [facility] (DEFAULT) [address] [place] [address] RBC (Bld) [#/Vol] 4.43 10*6/uL Normal 3.91-5.04 [facility] Comment on above: Performed By: #### H EMOGC #### [facility] (DEFAULT) [address] [place] [address] RBC Distribution 13.7 % Normal 10.8-14.9 [facility] Comment on above: Performed By: #### H EMOGC #### [facility] (DEFAULT) [address] [place] [address] WBC (Bld) [#/Vol] 11.41 10*3/uL High 3.99-11.19 [facility] Comment on above: Performed By: #### H EMOGC #### [facility] (DEFAULT) [address] [place] [address] CHEM 7 (LYTES,BUN,CREA,GLUC) Ordered By: Lizette Canseco on 08-04-2024 Anion gap [Moles/Vol] 16 mmol/L 7 - 17 mmol/L [facility] Chloride [Moles/Vol] 109 mmol/L High 98 - 10 8 mmol/L [facility] CO2 [Moles/Vol] 24 mmol/L 21 - 31 mmol/L [facility] Creatinine [Mass/Vol] 1.47 mg/dL High 0.50 - 1.20 mg/dL [facility] eGFR, CKD-EPI, Female 36 Low - PINF [facility] Glucose [Mass/Vol] 181 mg/dL High 70 - 179 mg/dL [facility] Interpretation and review of laboratory results Abnormal [facility] Osmolality Calc [Osmolality] 312 High [facility] Potassium [Moles/Vol] 4 mmol/L 3.5 - 5.0 mmol/L [facility] Sodium [Moles/Vol] 145 mmol/L 135 - 145 mmol/L [facility] Urea nitrogen [Mass/Vol] 26 mg/dL High 7 - 25 mg/dL [facility] Urea nitrogen/Creatinine [Mass ratio] 18 mg/mg [facility] CHEM 7 (LYTES,BUN,CREA,GLUC) on 08-04-2024 Anion gap [Moles/Vol] 16 mmol/L Normal 7-17 [facility] Comment on above: Performed By: #### S URGP #### [facility] (DEFAULT) [address] [address] Chloride [Moles/Vol] 109 mmol/L High 98-108 [facility] Comment on above: Performed By: #### S URGP #### [facility] (DEFAULT) [address] [place] [address] CO2 [Moles/Vol] 24 mmol/L Normal 21-31 [facility] Comment on above: Performed By: #### S URGP #### [facility] (DEFAULT) [address] [address] Creatinine [Mass/Vol] 1.47 mg/dL High 0.50-1.20 [facility] Comment on above: Performed By: #### S URGP #### [facility] (DEFAULT) [address] [address] GFR/1.73 sq M.predicted among non-blacks MDRD (S/P/Bld) [Vol rate/Area] 36 mL/min/{1.73_m2} Low >=60 [facility] Comment on above: Result Comment: Repo rted eGFR is based on the CKD-EPI 2020 equation using creatinine, age, and sex. Performed By: #### S URGP #### [facility] (DEFAULT) [address] [place] [address] Glucose [Mass/Vol] 181 mg/dL High Nonfastin -179 mg/dL; Fastin-99 [facility] Comment on above: Performed By: #### S URGP #### [facility] (DEFAULT) [address] [place] [address] Osmolality [Osmolality] 312 mosm/kg High 278-305 [facility] Comment on above: Performed By: #### S URGP #### [facility] (DEFAULT) [address] [place] [address] Potassium [Moles/Vol] 4.0 mmol/L Normal 3.5-5.0 [facility] Comment on above: Performed By: #### S URGP #### [facility] (DEFAULT) [address] [place] [address] Sodium [Moles/Vol] 145 mmol/L Normal 135-145 [facility] Comment on above: Performed By: #### S URGP #### [facility] (DEFAULT) [address] [place] [address] Urea nitrogen [Mass/Vol] 26 mg/dL High 7-25 [facility] Comment on above: Performed By: #### S URGP #### [facility] (DEFAULT) [address] [place] [address] Urea nitrogen/Creatinine [Mass ratio] 18 mg/mg Normal [facility] Comment on above: Performed By: #### S URGP #### [facility] (DEFAULT) [address] [place] [address] HEAD WITHOUT CONTRASTon 0 08-04-2024 CT [...] sinuses are clear. IMPRESSION: Stable exam. Normal [facility] CT Head WO contraston 2024 RADIOLOGY RADIOLOGY [facility] CT Head WO contrastOrdered B y: Chirag Mendenhall on 08-04-2024 [facility] Work Phone: GLUCOSE POCon 08-04-2024 Glucose [Mass/Vol] 227 mg/dL High 70 - 179 mg/dL [facility] Interpretation and review of laboratory results Abnormal [facility] POC Sample Type VENO [facility] Glucose [Mass/Vol] 235 mg/dL High 70 - 179 mg/dL [facility] Interpretation and review of laboratory results Abnormal [facility] POC Sample Type VENO [facility] Glucose [Mass/Vol] 215 mg/dL High 70 - 179 mg/dL [facility] Interpretation and review of laboratory results Abnormal [facility] POC Sample Type CAPBL [facility] Glucose [Mass/Vol] 178 mg/dL 70 - 179 mg/dL [facility] Glucose [Mass/Vol] 157 mg/dL 70 - 179 mg/dL [facility] Glucose [Mass/Vol] 271 mg/dL High 70 - 179 mg/dL [facility] Glucose [Mass/Vol] 267 mg/dL High 70 - 179 mg/dL [facility] Glucose [Mass/Vol] 246 mg/dL High 70 - 179 mg/dL [facility] IONIZED CALCIUM, WHOLE BLOOD Ordered By: Laura Rodriguez on 08-04-2024 Calcium.ionized (Bld) [Moles/Vol] 4.8 mg/dL 4.60 - 5.30 mg/dL [facility] Interpretation and review of laboratory results Normal [facility] IONIZED CALCIUM, WHOLE BLOOD on 08-04-2024 ICA 4.80 mg/dL Normal 4.60-5.30 [facility] Comment on above: Performed By: #### T YPEC #### [facility] (DEFAULT) [address] [place] [address] MAGNESIUMon 08-04-2024 Magnesium [Mass/Vol] 1.9 mg/dL 1.6 - 2 .6 mg/dL [facility] Magnesium [Mass/Vol] 1.9 mg/dL Normal 1.6-2.6 [facility] Comment on above: Performed By: #### X M #### [facility] (DEFAULT) [address] [address] No Panel Informationon 08-04 POC Sample Type CAPBL [facility] Interpretation and review of laboratory results Abnormal [facility] Interpretation and review of laboratory results Normal [facility] PHOSPHATE, INORGANICon 08-04 Phosphate [Mass/Vol] 2.8 mg/dL 2.2 - 4 .6 mg/dL [facility] Phosphorous 2.8 mg/dL Normal 2.2-4.6 [facility] Comment on above: Performed By: #### X M #### [facility] (DEFAULT) [address] [place] [address] SODIUMon 08-04-2024 Interpretation and review of laboratory results Normal [facility] Sodium [Moles/Vol] 142 mmol/L 135 - 145 mmol/L [facility] Sodium [Moles/Vol] 142 mmol/L Normal 135-145 [facility] Comment on above: Order Comment: While on 3% Hypertonic Saline. Performed By: #### S URGP #### [facility] (DEFAULT) [address] [place] [address] Interpretation and review of laboratory results Normal [facility] Sodium [Moles/Vol] 141 mmol/L 135 - 145 mmol/L [facility] Sodium [Moles/Vol] 141 mmol/L Normal 135-145 [facility] Comment on above: Order Comment: 2 Bot [...] bottle. Performed By: #### B LDCULT #### [facility] (DEFAULT) [address] [place] [address] Interpretation and review of laboratory results Normal [facility] Sodium [Moles/Vol] 143 mmol/L 135 - 145 mmol/L [facility] Sodium [Moles/Vol] 143 mmol/L Normal 135-145 [facility] Comment on above: Order Comment: While on 3% Hypertonic Saline. Performed By: #### H EMOGC #### [facility] (DEFAULT) [address] [place] [address] ABORH TYPE RECONFIRMATIONon 08-03-2024 ABO/RH(D) TYPE Negative [facility] ABO/RH(D) TYPE Negative Normal [facility] Comment on above: Performed By: #### T YPEC #### [facility] (DEFAULT) [address] [place] [address] CBC,PLATELETSon 08-03-2024 Erythrocyte distribution width (RBC) [Ratio] 13.2 % 10.8 - 14.9 % [facility] Hematocrit (Bld) [Volume fraction] 42.8 % 34.9 - 44.3 % [facility] Hemoglobin (Bld) [Mass/Vol] 13.5 g/dL 11.4 - 15.2 g/dL [facility] Interpretation and review of laboratory results Normal [facility] MCH (RBC) [Entitic mass] 29.2 pg 25.9 - 33.9 pg [facility] MCHC (RBC) [Mass/Vol] 31.5 g/dL 31.4 - 35.9 g/dL [facility] MCV (RBC) [Entitic vol] 92.4 fL 79.6 - 97.7 fL [facility] Platelet mean volume (Bld) [Entitic vol] 11.2 fL 8.5 - 12.2 fL [facility] Platelets (Bld) [#/Vol] 227 10*3/uL 150 - 393 K/uL [facility] RBC (Bld) [#/Vol] 4.63 10*6/uL [facility] WBC (Bld) [#/Vol] 8.43 10*3/uL 3.99 - 11.19 K/uL [facility] Hematocrit (Bld) [Volume fraction] 42.8 % Normal 34.9-44.3 [facility] Comment on above: Performed By: #### X M #### [facility] (DEFAULT) [address] [place] [address] Hemoglobin (Bld) [Mass/Vol] 13.5 g/dL Normal 11.4-15.2 [facility] Comment on above: Performed By: #### X M #### [facility] (DEFAULT) [address] [place] [address] MCV (RBC) [Entitic vol] 92.4 fL Normal 79.6-97.7 [facility] Comment on above: Performed By: #### X M #### [facility] (DEFAULT) [address] [place] [address] Mean Cell Hgb 29.2 pg Normal 25.9-33.9 [facility] Comment on above: Performed By: #### X M #### [facility] (DEFAULT) [address] [place] [address] Mean Cell Hgb Conc 31.5 g/dL Normal 31.4-35.9 [facility] Comment on above: Performed By: #### X M #### [facility] (DEFAULT) [address] [place] [address] Platelet mean volume (Bld) [Entitic vol] 11.2 fL Normal 8.5-12.2 [facility] Comment on above: Performed By: #### X M #### [facility] (DEFAULT) [address] [place] [address] Platelets (Bld) [#/Vol] 227 10*3/uL Normal 150-393 [facility] Comment on above: Performed By: #### X M #### [facility] (DEFAULT) [address] [place] [address] RBC (Bld) [#/Vol] 4.63 10*6/uL Normal 3.91-5.04 [facility] Comment on above: Performed By: #### X M #### [facility] (DEFAULT) [address] [place] [address] RBC Distribution 13.2 % Normal 10.8-14.9 [facility] Comment on above: Performed By: #### X M #### [facility] (DEFAULT) [address] [place] [address] WBC (Bld) [#/Vol] 8.43 10*3/uL Normal 3.99-11.19 [facility] Comment on above: Performed By: #### X M #### [facility] (DEFAULT) [address] [place] [address] CHEM 7 (LYTES,BUN,CREA,GLUC) on 08-03-2024 Anion gap [Moles/Vol] 16 mmol/L 7 - 17 mmol/L [facility] Chloride [Moles/Vol] 103 mmol/L 98 - 10 8 mmol/L [facility] CO2 [Moles/Vol] 23 mmol/L 21 - 31 mmol/L [facility] Creatinine [Mass/Vol] 1.35 mg/dL High 0.50 - 1.20 mg/dL [facility] eGFR, CKD-EPI, Female 40 Low - PINF [facility] Glucose [Mass/Vol] 151 mg/dL 70 - 179 mg/dL [facility] Interpretation and review of laboratory results Abnormal [facility] Osmolality Calc [Osmolality] 295 [facility] Potassium [Moles/Vol] 4.3 mmol/L 3.5 - 5.0 mmol/L [facility] Sodium [Moles/Vol] 138 mmol/L 135 - 145 mmol/L [facility] Urea nitrogen [Mass/Vol] 18 mg/dL 7 - 25 mg/dL [facility] Urea nitrogen/Creatinine [Mass ratio] 13 mg/mg [facility] Anion gap [Moles/Vol] 16 mmol/L Normal 7-17 [facility] Comment on above: Performed By: #### S URGP #### [facility] (DEFAULT) [address] [place] [address] Chloride [Moles/Vol] 103 mmol/L Normal 98-108 [facility] Comment on above: Performed By: #### S URGP #### [facility] (DEFAULT) [address] [place] [address] CO2 [Moles/Vol] 23 mmol/L Normal 21-31 [facility] Comment on above: Performed By: #### S URGP #### [facility] (DEFAULT) [address] [place] [address] Creatinine [Mass/Vol] 1.35 mg/dL High 0.50-1.20 [facility] Comment on above: Performed By: #### S URGP #### [facility] (DEFAULT) [address] [place] [address] GFR/1.73 sq M.predicted among non-blacks MDRD (S/P/Bld) [Vol rate/Area] 40 mL/min/{1.73_m2} Low >=60 [facility] Comment on above: Result Comment: Repo rted eGFR is based on the CKD-EPI 2020 equation using creatinine, age, and sex. Performed By: #### S URGP #### [facility] (DEFAULT) [address] [place] [address] Glucose [Mass/Vol] 151 mg/dL Normal Nonfastin -179 mg/dL; Fastin-99 [facility] Comment on above: Performed By: #### S URGP #### [facility] (DEFAULT) [address] [place] [address] Osmolality [Osmolality] 295 mosm/kg Normal 278-305 [facility] Comment on above: Performed By: #### S URGP #### [facility] (DEFAULT) [address] [place] [address] Potassium [Moles/Vol] 4.3 mmol/L Normal 3.5-5.0 [facility] Comment on above: Result Comment: Spec imen slightly hemolyzed. Potassium results may be falsey elevated by more than 0.5 mmol/L. Consider recollection. Performed By: #### S URGP #### [facility] (DEFAULT) [address] [place] [address] Sodium [Moles/Vol] 138 mmol/L Normal 135-145 [facility] Comment on above: Performed By: #### S URGP #### [facility] (DEFAULT) [address] [place] [address] Urea nitrogen [Mass/Vol] 18 mg/dL Normal - [facility] Comment on above: Performed By: #### S URGP #### [facility] (DEFAULT) [address] [place] [address] Urea nitrogen/Creatinine [Mass ratio] 13 mg/mg Normal [facility] Comment on above: Performed By: #### S URGP #### [facility] (DEFAULT) [address] [place] [address] CT CHEST WITH CONTRAST VASCU LAR TRAUMAon [...] have reviewed and approved this report. Normal [facility] CT Cervical spine WO contras ton 08-03-2024 RADIOLOGY RADIOLOGY [facility] CT Cervical spine WO contras tOrdered By: Alissa Chun on 08-03-2024 [facility] Work Phone: CT Chest W contrast Seth RADIOLOGY RADIOLOGY [facility] CT Chest W contrast IVOrdere d By: Kayla Newell on 08-03-2024 [facility] Work Phone: CT HEAD WITHOUT CONTRASTon 0 [...] since the MRI from earlier today Normal [facility] CT Head WO contraston 2024 Radiology Study observation (narrative) [facility] ([facility]arrative[facility] CT ORBITS WITHOUT CONTRASTon 08-03-2024 [...] basal ganglia hyperdensity concerning for hemorrhage. Normal [facility] CT Orbit WO contraston 08-03 [facility] SPINE CERVICAL WITHOUT CO [...] No evidence of acute fractures identified Normal [facility] EXTRA MICROon 08-03-2024 [facility] GLUCOSE POCon 08-03-2024 Glucose [Mass/Vol] 161 mg/dL 70 - 179 mg/dL [facility] POC Sample Type CAPBL [facility] IONIZED CALCIUM, WHOLE BLOOD Ordered By: Alejandra Ness on 08-03-2024 Calcium.ionized (Bld) [Moles/Vol] 4.24 mg/dL Low 4.60 - 5.30 mg/dL [facility] Interpretation and review of laboratory results Abnormal [facility] IONIZED CALCIUM, WHOLE BLOOD on 08-03-2024 ICA 4.24 mg/dL Low 4.60-5.30 [facility] Comment on above: Performed By: #### [place] [facility] [place] #### [facility] (DEFAULT) [address] [place] [address] MAGNESIUMon 08-03-2024 Magnesium [Mass/Vol] 2.1 mg/dL 1.6 - 2 .6 mg/dL [facility] Magnesium [Mass/Vol] 2.1 mg/dL Normal 1.6-2.6 [facility] Comment on above: Performed By: #### S URGP #### [facility] (DEFAULT) [address] [place] [address] MR Brain WO contraston 08-03 RADIOLOGY RADIOLOGY [facility] Radiology Study observation (narrative) [facility] MR Cervical spine WO contras ton 08-03-2024 RADIOLOGY RADIOLOGY [facility] Radiology Study observation (narrative) [facility] MR Cervical spine WO contras tOrdered By: Kuldeep Tavares on 08-03-2024 [facility] Work Phone: MRI BRAIN WITHOUT CONTRASTon [...] tiny 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 Normal [facility] MRI SPINE CERVICAL WITHOUT C ONTRASTon 08-03-2024 [...] have reviewed and approved this report. Normal [facility] NT-PRO B-TYPE NATRIURETIC PE PTIDEon 08-03-2024 Interpretation and review of laboratory results Abnormal [facility] Natriuretic peptide.B prohormone N-Terminal IA [Mass/Vol] 1115 pg/mL High NINF - 540 pg/mL [facility] No Panel Informationon 08-03 RADIOLOGY RADIOLOGY [facility] Interpretation and review of laboratory results Normal [facility] No Panel InformationOrdered By: Richard Sánchez on 08-03-2024 [facility] Work Phone: PHOSPHATE, INORGANICon 08-03 Phosphate [Mass/Vol] 3.5 mg/dL 2.2 - 4 .6 mg/dL [facility] Phosphorous 3.5 mg/dL Normal 2.2-4.6 [facility] Comment on above: Performed By: #### S URGP #### [facility] (DEFAULT) [address] [place] [address] SCREEN: MRSA/MSSAOrdered By: Gail Collado on 08-03-2024 Interpretation and review of laboratory results Normal [facility] Methicillin Resistant S. Aureus By Pcr Negative Negative [facility] Staphylococcus Aureus By Pcr Negative Negative [facility] SODIUMon 08-03-2024 Interpretation and review of laboratory results Normal [facility] Sodium [Moles/Vol] 139 mmol/L 135 - 145 mmol/L [facility] Sodium [Moles/Vol] 139 mmol/L Normal 135-145 [facility] Comment on above: Order Comment: While on 3% Hypertonic Saline. Performed By: #### N ####[facility] (DEFAULT)[address] [place] [address] Interpretation and review of laboratory results Abnormal [facility] Sodium [Moles/Vol] 134 mmol/L Low 135 - 145 mmol/L [facility] Sodium [Moles/Vol] 134 mmol/L Low 135-145 [facility] Comment on above: Order Comment: While on 3% Hypertonic Saline. Performed By: #### [facility] #### [facility] (DEFAULT) [address] [place] [address] XR ABDOMEN 1 VIEW PORTABLEon 08-03-2024 XR [...] proximal second portion of the duodenum. Normal [facility] XR Abdomen Single viewon RADIOLOGY RADIOLOGY [facility] Radiology Study observation (narrative) [facility] XR Abdomen Single viewOrdere d By: Huey Gibson on 08-03-2024 [facility] XR ELBOW RIGHT 2 VIEWSon XR ELBOW RIGHT 2 VIEWS EXAM: XR ELBOW RI GHT 2 VIEWS, XR HUMERUS RIGHT 2+ VIEWS, XR WRIST RIGHT 3+ VIEWS, 08/02/2024 23:24 PM (accession [id number]), 08/02/2024 23:24 PM (accession [id number]), 08/02/2024 23:23 PM (accession [id number]) COMPARISON: No prior studies available for comparison. [...] dislocation. IMPRESSION: No acute osseous abnormality. Normal [facility] XR HUMERUS RIGHT 2+ VIEWSon 08-03-2024 XR HUMERUS RIGHT 2+ VIEWS EXAM: XR ELBOW RIGHT 2 VIEWS, XR HUMERUS RIGHT 2+ VIEWS, XR WRIST RIGHT 3+ VIEWS, 08/02/2024 23:24 PM (accession [id number]), 08/02/2024 23:24 PM (accession [id number]), 08/02/2024 23:23 PM (accession [id number]) COMPARISON: No prior studies available for comparison. [...] dislocation. IMPRESSION: No acute osseous abnormality. Normal [facility] XR WRIST RIGHT 3+ VIEWSon XR WRIST RIGHT 3+ VIEWS EXAM: XR ELBOW R IGHT 2 VIEWS, XR HUMERUS RIGHT 2+ VIEWS, XR WRIST RIGHT 3+ VIEWS, 08/02/2024 23:24 PM (accession [id number]), 08/02/2024 23:24 PM (accession [id number]), 08/02/2024 23:23 PM (accession [id number]) COMPARISON: No prior studies available for comparison. [...] dislocation. IMPRESSION: No acute osseous abnormality. Normal [facility] 12 Lead EKGon 08-02-2024 12 Lead EKG [facility] [address] [place] [address] 12 Lead EKG 08/02/24 1309 MR#: [id number] Acct: [id number] Name: LINDSAY ACUNA Rep #: [id number] : 1945 78 From: Mj Benavides MD [...] wave abnormality Abnormal ECG Confirmed by MAKAYLA LAWSONMJ ([id number]), assignment desk editor NAIMA BEARDEN ([id number]) on 08/05/2024 6:47:07 AM Referred By: Confirmed By: MJ BENAVIDES MD 08/05/24 0647 Date Mj Benavides MD CC: Dr. Pieter Morgan MD; Dr. Kameron Caruso MD Signed Normal [facility] Absolute lymphocyte countOrd ered By: Pieter Morgan on 08-02-2024 Lymphocytes Auto (Unsp spec) [#/Vol] 1.56 10*3/uL 0.83-4.51 [facility] Absolute neutrophil countOrd ered By: Pieter Morgan on 08-02-2024 Neutrophils (Bld) [#/Vol] 6.2 10*3/uL 2.0-7.7 [facility] Activated partial thrombopla stin time (aPTT) in platelet poor plasma by coagulation aOrdered By: Pieter Morgan on 08-02-2024 aPTT Coag (PPP) [Time] 28.4 s 24.1-36.2 [facility] Anion gap in Serum or Plasma Ordered By: Pieter Morgan on 08-02-2024 Anion gap [Moles/Vol] 12 mmol/L 5-15 [facility] Automated lymphocyte count a s percentage of total leukocytesOrdered By: Pieter Morgan on 08-02-2024 Lymphocytes/100 WBC Auto (Unsp spec) 17.9 % Low 19-41 [facility] BUN/creatinine ratioOrdered By: Pieter Morgan on 08-02-2024 Urea nitrogen/Creatinine [Mass ratio] 11.6 mg/mg 10- [facility] Basic Metabolic Profile (BMP )on 08-02-2024 BUN/CRE 11.6 RATIO Normal 03-03 [facility] Comment on above: Performed By: #### L 100.0100, L300.3900, L300.4310, L500.2500, L501.4021 #### [facility] Laboratory [facility] [place], [address] Calcium [Mass/Vol] 9.0 mg/dL Normal 7.6-11.0 [facility] Comment on above: Performed By: #### L 100.0100, L300.3900, L300.4310, L500.2500, L501.4021 #### [facility] [address] [place], [address] Chloride [Moles/Vol] 98 mmol/L Normal 98-108 [facility] Comment on above: Performed By: #### L 100.0100, L300.3900, L300.4310, L500.2500, L501.4021 #### [facility] [address] [place], [address] CO2 [Moles/Vol] 22.0 mmol/L Normal 21.0-32.0 [facility] Comment on above: Performed By: #### L 100.0100, L300.3900, L300.4310, L500.2500, L501.4021 #### [facility] [address] [place], [address] Creatinine [Mass/Vol] 1.74 mg/dL High 0.70-1.20 [facility] Comment on above: Performed By: #### L 100.0100, L300.3900, L300.4310, L500.2500, L501.4021 #### [facility] [address] [place], [address] ECRCL 27.14 ml/min Low 50-250 [facility] Comment on above: Performed By: #### L 100.0100, L300.3900, L300.4310, L500.2500, L501.4021 #### [facility] [address] [place], [address] GAP 12 Normal 5-15 [facility] Comment on above: Performed By: #### L 100.0100, L300.3900, L300.4310, L500.2500, L501.4021 #### [facility] [address] [place], [address] GFR/1.73 sq M.predicted among non-blacks MDRD (S/P/Bld) [Vol rate/Area] 29 mL/min/{1.73_m2} Low >60 [facility] Comment on above: Result Comment: mL/m in/1.73m2 CKD-EPI Creatinine Equation (2020) Performed By: #### L 100.0100, L300.3900, L300.4310, L500.2500, L501.4021 #### [facility] [address] [place], [address] Glucose [Mass/Vol] 235 mg/dL High 70-99 [facility] Comment on above: Performed By: #### L 100.0100, L300.3900, L300.4310, L500.2500, L501.4021 #### [facility] [address] [place], [address] Potassium [Moles/Vol] 4.2 mmol/L Normal 3.3-5.1 [facility] Comment on above: Performed By: #### L 100.0100, L300.3900, L300.4310, L500.2500, L501.4021 #### [facility] [address] [place], [address] Sodium [Moles/Vol] 132 mmol/L Low 133-145 [facility] Comment on above: Performed By: #### L 100.0100, L300.3900, L300.4310, L500.2500, L501.4021 #### [facility] [address] [place], [address] Urea nitrogen [Mass/Vol] 20 mg/dL High 4-19 [facility] Comment on above: Performed By: #### L 100.0100, L300.3900, L300.4310, L500.2500, L501.4021 #### [facility] [address] [place], [address] Basophil percentageOrdered B y: Pieter Morgan on 08-02-2024 Basophils/100 WBC (Bld) 0.5 % 0-1 [facility] CBC W/Diff, Automatedon 07-14 Absolute Lymph 1.56 X10 3/uL Normal 0.83-4.51 [facility] Comment on above: Performed By: #### L 100.0100, L300.3900, L300.4310, L500.2500, L501.4021 #### [facility] [address] [place], [address] Absolute Neut 6.2 X10 3/uL Normal 2.0-7.7 [facility] Comment on above: Performed By: #### L 100.0100, L300.3900, L300.4310, L500.2500, L501.4021 #### [facility] [address] [place], [address] Basophils/100 WBC (Bld) 0.5 % Normal 0-1 [facility] Comment on above: Performed By: #### L 100.0100, L300.3900, L300.4310, L500.2500, L501.4021 #### [facility] Laboratory [address] [place], [address] Eosinophils/100 WBC (Bld) 1.0 % Normal 0-5 [facility] Comment on above: Performed By: #### L 100.0100, L300.3900, L300.4310, L500.2500, L501.4021 #### [facility] Laboratory [address] [place], [address] Erythrocyte distribution width (RBC) [Ratio] 13.3 % Normal 11.6-14.6 [facility] Comment on above: Performed By: #### L 100.0100, L300.3900, L300.4310, L500.2500, L501.4021 #### [facility] Laboratory [address] [place], [address] Hematocrit (Bld) [Volume fraction] 42.0 % Normal 37-47 [facility] Comment on above: Performed By: #### L 100.0100, L300.3900, L300.4310, L500.2500, L501.4021 #### [facility] Laboratory [address] [place], [address] Hemoglobin (Bld) [Mass/Vol] 13.8 g/dL Normal 12.0-15.0 [facility] Comment on above: Performed By: #### L 100.0100, L300.3900, L300.4310, L500.2500, L501.4021 #### [facility] Laboratory [address] [place], [address] IG% 0.300 Normal 0.0-0.9 [facility] Comment on above: Result Comment: IG% - Immature Granulocytes (promyelocytes, myelocytes and metamyelocytes) > 1% indicates that a LEFT SHIFT is Present. Performed By: #### L 100.0100, L300.3900, L300.4310, L500.2500, L501.4021 #### [facility] [address] [place], [address] Lymphocytes/100 WBC (Bld) 17.9 % Low 19-41 [facility] Comment on above: Performed By: #### L 100.0100, L300.3900, L300.4310, L500.2500, L501.4021 #### [facility] Laboratory [address] [place], [address] MCH (RBC) [Entitic mass] 30.3 pg Normal 27.0-32.0 [facility] Comment on above: Performed By: #### L 100.0100, L300.3900, L300.4310, L500.2500, L501.4021 #### [facility] Laboratory [address] [place], [address] MCHC (RBC) [Mass/Vol] 32.9 g/dL Normal 32-36 [facility] Comment on above: Performed By: #### L 100.0100, L300.3900, L300.4310, L500.2500, L501.4021 #### [facility] Laboratory [address] [place], [address] MCV (RBC) [Entitic vol] 92.1 fL Normal 81-99 [facility] Comment on above: Performed By: #### L 100.0100, L300.3900, L300.4310, L500.2500, L501.4021 #### [facility] Laboratory [address] [place], [address] Monocytes/100 WBC (Bld) 8.9 % Normal 0-10 [facility] Comment on above: Performed By: #### L 100.0100, L300.3900, L300.4310, L500.2500, L501.4021 #### [facility] Laboratory [address] [place], [address] Neutrophils/100 WBC (Bld) 71.4 % High 47-70 [facility] Comment on above: Performed By: #### L 100.0100, L300.3900, L300.4310, L500.2500, L501.4021 #### [facility] Laboratory [address] [place], [address] Nucleated RBC (Bld) [#/Vol] 0 10*3/uL Normal 0-5 [facility] Comment on above: Performed By: #### L 100.0100, L300.3900, L300.4310, L500.2500, L501.4021 #### [facility] Laboratory [address] [place], [address] Platelet mean volume (Bld) [Entitic vol] 10.7 fL Normal 6.2-12.0 [facility] Comment on above: Performed By: #### L 100.0100, L300.3900, L300.4310, L500.2500, L501.4021 #### [facility] Laboratory [address] [place], [address] Platelets (Bld) [#/Vol] 214 10*3/uL Normal 150-450 [facility] Comment on above: Performed By: #### L 100.0100, L300.3900, L300.4310, L500.2500, L501.4021 #### [facility] Laboratory [address] [place], [address] RBC (Bld) [#/Vol] 4.56 10*6/uL Normal 4.2-5.4 [facility] Comment on above: Performed By: #### L 100.0100, L300.3900, L300.4310, L500.2500, L501.4021 #### [facility] Laboratory [address] [place], [address] RDW SD 45.3 fl High 35.1-43.9 [facility] Comment on above: Performed By: #### L 100.0100, L300.3900, L300.4310, L500.2500, L501.4021 #### [facility] Laboratory [address] [place], [address] WBC (Bld) [#/Vol] 8.7 10*3/uL Normal 4.4-11.0 [facility] Comment on above: Performed By: #### L 100.0100, L300.3900, L300.4310, L500.2500, L501.4021 #### [facility] Laboratory [address] [place], [address] CBC,PLATELETSon 03-21-2025 Erythrocyte distribution width (RBC) [Ratio] 13.3 % 10.8 - 14.9 % [facility] Hematocrit (Bld) [Volume fraction] 43.8 % 34.9 - 44.3 % [facility] Hemoglobin (Bld) [Mass/Vol] 14 g/dL 11.4 - 15.2 g/dL [facility] Interpretation and review of laboratory results Normal [facility] MCH (RBC) [Entitic mass] 29.4 pg 25.9 - 33.9 pg [facility] MCHC (RBC) [Mass/Vol] 32 g/dL 31.4 - 35.9 g/dL [facility] MCV (RBC) [Entitic vol] 92 fL 79.6 - 97.7 fL [facility] Platelet mean volume (Bld) [Entitic vol] 10.8 fL 8.5 - 12.2 fL [facility] Platelets (Bld) [#/Vol] 245 10*3/uL 150 - 393 K/uL [facility] RBC (Bld) [#/Vol] 4.76 10*6/uL [facility] WBC (Bld) [#/Vol] 8.16 10*3/uL 3.99 - 11.19 K/uL [facility] Hematocrit (Bld) [Volume fraction] 43.8 % Normal 34.9-44.3 [facility] Comment on above: Performed By: #### B LDCULT #### [facility] (DEFAULT) [address] [address] Hemoglobin (Bld) [Mass/Vol] 14.0 g/dL Normal 11.4-15.2 [facility] Comment on above: Performed By: #### B LDCULT #### [facility] (DEFAULT) [address] [address] MCV (RBC) [Entitic vol] 92.0 fL Normal 79.6-97.7 [facility] Comment on above: Performed By: #### B LDCULT #### [facility] (DEFAULT) [address] [place] [address] Mean Cell Hgb 29.4 pg Normal 25.9-33.9 [facility] Comment on above: Performed By: #### B LDCULT #### [facility] (DEFAULT) [address] [place] [address] Mean Cell Hgb Conc 32.0 g/dL Normal 31.4-35.9 [facility] Comment on above: Performed By: #### B LDCULT #### [facility] (DEFAULT) [address] [place] [address] Platelet mean volume (Bld) [Entitic vol] 10.8 fL Normal 8.5-12.2 [facility] Comment on above: Performed By: #### B LDCULT #### [facility] (DEFAULT) [address] [address] Platelets (Bld) [#/Vol] 245 10*3/uL Normal 150-393 [facility] Comment on above: Performed By: #### B LDCULT #### [facility] (DEFAULT) [address] [place] [address] RBC (Bld) [#/Vol] 4.76 10*6/uL Normal 3.91-5.04 [facility] Comment on above: Performed By: #### B LDCULT #### [facility] (DEFAULT) [address] [place] [address] RBC Distribution 13.3 % Normal 10.8-14.9 [facility] Comment on above: Performed By: #### B LDCULT #### [facility] (DEFAULT) [address] [place] [address] WBC (Bld) [#/Vol] 8.16 10*3/uL Normal 3.99-11.19 [facility] Comment on above: Performed By: #### B LDCULT #### [facility] (DEFAULT) [address] [place] [address] CHEM 7 (LYTES,BUN,CREA,GLUC) on 08-02-2024 Anion gap [Moles/Vol] 16 mmol/L 7 - 17 mmol/L [facility] Chloride [Moles/Vol] 105 mmol/L 98 - 10 8 mmol/L [facility] CO2 [Moles/Vol] 22 mmol/L 21 - 31 [facility] Creatinine [Mass/Vol] 1.37 mg/dL High 0.50 - 1.20 mg/dL [facility] eGFR, CKD-EPI, Female 39 Low - PINF [facility] Glucose [Mass/Vol] 210 mg/dL High 70 - 179 mg/dL [facility] Osmolality Calc [Osmolality] 299 [facility] Potassium [Moles/Vol] 3.7 mmol/L 3.5 - 5.0 mmol/L [facility] Sodium [Moles/Vol] 139 mmol/L 135 - 145 mmol/L [facility] Urea nitrogen [Mass/Vol] 18 mg/dL 7 - 25 mg/dL [facility] Urea nitrogen/Creatinine [Mass ratio] 13 mg/mg [facility] Anion gap [Moles/Vol] 16 mmol/L Normal 7-17 [facility] Comment on above: Performed By: #### [facility] [place] #### [facility] (DEFAULT) [address] [place] [address] Chloride [Moles/Vol] 105 mmol/L Normal 98-108 [facility] Comment on above: Performed By: #### [facility] [place] #### [facility] (DEFAULT) [address] [place] [address] CO2 [Moles/Vol] 22 mmol/L Normal 21-31 [facility] Comment on above: Performed By: #### H EMO #### [facility] (DEFAULT) [address] [place] [address] Creatinine [Mass/Vol] 1.37 mg/dL High 0.50-1.20 [facility] Comment on above: Performed By: #### [facility] [place] #### [facility] (DEFAULT) [address] [address] GFR/1.73 sq M.predicted among non-blacks MDRD (S/P/Bld) [Vol rate/Area] 39 mL/min/{1.73_m2} Low >=60 [facility] Comment on above: Result Comment: Repo rted eGFR is based on the CKD-EPI 2020 equation using creatinine, age, and sex. Performed By: #### [facility] [place] #### [facility] (DEFAULT) [address] [address] Glucose [Mass/Vol] 210 mg/dL High Nonfastin -179 mg/dL; Fastin-99 [facility] Comment on above: Performed By: #### H EMO #### [facility] (DEFAULT) [address] [address] Osmolality [Osmolality] 299 mosm/kg Normal 278-305 [facility] Comment on above: Performed By: #### H EMO #### [facility] (DEFAULT) [address] [address] Potassium [Moles/Vol] 3.7 mmol/L Normal 3.5-5.0 [facility] Comment on above: Performed By: #### H EMO #### [facility] (DEFAULT) [address] [address] Sodium [Moles/Vol] 139 mmol/L Normal 135-145 [facility] Comment on above: Performed By: #### H EMOGC #### [facility] (DEFAULT) [address] [address] Urea nitrogen [Mass/Vol] 18 mg/dL Normal 7-25 [facility] Comment on above: Performed By: #### H EMOGC #### [facility] (DEFAULT) [address] [address] Urea nitrogen/Creatinine [Mass ratio] 13 mg/mg Normal [facility] Comment on above: Performed By: #### [facility] [place] #### [facility] (DEFAULT) [address] [place] [address] CT ABDOMEN/PELVIS WITH CONTR AST VASCULAR TRAUMAon [...] grade: None. Kidney trauma grade: None. Normal [facility] CT Abdomen and Pelvis W cont rast Seth 08-02-2024 RADIOLOGY RADIOLOGY [facility] CT Abdomen and Pelvis W cont rast IVOrdered By: Edson Head on 08-02-2024 [facility] Work Phone: CT Cervical spine WO contras ton 08-02-2024 Radiology Study observation (narrative) [facility] CT Orbit WO contraston 08-02 [facility] Carbon dioxide, total [Moles /volume] in Central venous bloodOrdered By: Pieter Morgan on 08-02-2024 CO2 [Moles/Vol] 22.0 mmol/L 21.0-32.0 [facility] Chloride assayOrdered By: Racheal Morgan on 08-02-2024 Chloride [Moles/Vol] 98 mmol/L 98-108 [facility] Emergency Department Summary on 08-02-2024 Emergency Department Summary [facility] Medical Records Department [address] [place] [address] Emergency Department Summary 08/02/24 MR#: [id number] Acct: [id number] Name: LINDSAY ACUNA Rep #: [id number] : 1945 78 From: Pieter Morgan MD [...] the EMR. states they returned home from [facility] about 1.5-2 weeks ago, and they both had colds. He is better, but she is "on round 2." [facility] Medical History Paroxysmal atrial fibrillation [...] normal respir (more content not included)... Normal [facility] Eosinophil percentageOrdered By: Pieter Morgan on 08-02-2024 Eosinophils/100 WBC (Bld) 1.0 % 0-5 [facility] Erythrocyte distribution wid th ratioOrdered By: Pieter Morgan on 08-02-2024 Erythrocyte distribution width (RBC) [Ratio] 13.3 % 11.6-14.6 [facility] Erythrocyte distribution wid th standard deviationOrdered By: Pieter Morgan on 08-02-2024 Erythrocyte distribution width (RBC) [Entitic vol] 45.3 fL High 35.1-43.9 [facility] Erythrocyte distribution width (RBC) [Ratio] 45.3 fl High 35.1-43.9 [facility] Estimation of creatinine mackenzie aranceOrdered By: Pieter Morgan on 08-02-2024 Estimated Creatinine Clearance Calc 27.14 ml/min Low 50-250 [facility] GFR/1.73 sq M.predicted lana g non-blacks MDRD (S/P/Bld) [Vol rate/Area]Ordered By: Pieter Morgan on 08-02-2024 Estimated GFR (MDRD) Non-Af Amer 29 Low >60 [facility] Comment on above: mL/min/1.73m2 CKD-EP I Creatinine Equation (2020) Glomerular filtration rate ( GFR) estimation/1.73 sq m using serum, plasma, or whole bOrdered By: Pieter Morgan on 08-02-2024 GFR/1.73 sq M.predicted among non-blacks MDRD (S/P/Bld) [Vol rate/Area] 29 mL/min/{1.73_m2} Low >60 [facility] Comment on above: mL/min/1.73m2 CKD-EP I Creatinine Equation (2020) HEMOGLOBIN A1Con 08-02-2024 Average glucose Estimated from glycated hemoglobin (Bld) [Mass/Vol] 177 mg/dL [facility] HbA1c (Bld) [Mass fraction] 7.8 % High 4.7 - 5.6 % [facility] Interpretation and review of laboratory results Abnormal [facility] Glucose [Mass/Vol] 177 mg/dL Normal [facility] Comment on above: Performed By: #### [facility] [place] [place] #### [facility] (DEFAULT) [address] [place] [address] Hemoglobin A1C HPLC 7.8 % High 4.7-5.6 [facility] Comment on above: Performed By: #### [facility] [place] #### [facility] (DEFAULT) [address] [address] HEPATIC FUNCTION PANELon Albumin [Mass/Vol] 3.5 g/dL 3.5 - 5.0 g/dL [facility] ALP [Catalytic activity/Vol] 117 U/L 32 - 126 U/L [facility] ALT [Catalytic activity/Vol] 10 U/L 9 - 48 U/L [facility] AST [Catalytic activity/Vol] 17 U/L 10 - 39 U/L [facility] Bilirubin [Mass/Vol] 0.6 mg/dL NINF - 1.5 mg/dL [facility] Bilirubin.direct [Mass/Vol] 0.1 mg/dL NINF - 0.3 mg/dL [facility] Protein [Mass/Vol] 6.3 g/dL Low 6.4 - 8.3 g/dL [facility] Albumin [Mass/Vol] 3.5 g/dL Normal 3.5-5.0 [facility] Comment on above: Performed By: #### H EMO #### [facility] (DEFAULT) [address] [address] ALP [Catalytic activity/Vol] 117 U/L Normal 32-126 [facility] Comment on above: Performed By: #### H EMO #### [facility] (DEFAULT) [address] [address] ALT [Catalytic activity/Vol] 10 U/L Normal 9-48 [facility] Comment on above: Performed By: #### H EMO #### [facility] (DEFAULT) [address] [address] AST [Catalytic activity/Vol] 17 U/L Normal 10-39 [facility] Comment on above: Performed By: #### H EMOGC #### [facility] (DEFAULT) [address] [address] Bilirubin [Mass/Vol] 0.6 mg/dL Normal <1.5 [facility] Comment on above: Performed By: #### H EMOGC #### [facility] (DEFAULT) [address] [address] Bilirubin.indirect [Mass/Vol] 0.1 mg/dL Normal <0.3 [facility] Comment on above: Performed By: #### H EMOGC #### [facility] (DEFAULT) [address] [place] [address] Protein [Mass/Vol] 6.3 g/dL Low 6.4-8.3 [facility] Comment on above: Performed By: #### H EMOGC #### [facility] (DEFAULT) [address] [place] [address] HIGH SENSITIVITY TROPONIN I - SINGLE ORDERon 08-02-2024 Interpretation and review of laboratory results Normal [facility] Troponin I.cardiac High sensitivity method [Mass/Vol] 9 ng/L NINF - 34 ng/L [facility] hs-Troponin I 9 ng/L Normal <34 [facility] Comment on above: Order Comment: 2 Bot [...] bottle. Performed By: #### B LDCULT #### [facility] (DEFAULT) [address] [address] Hematocrit Auto (Bld) [Volum e fraction]Ordered By: Pieter Morgan on 08-02-2024 Hematocrit (Bld) [Volume fraction] 42.0 % 37-47 [facility] Hemoglobin measurementOrdere d By: Pieter Morgan on 08-02-2024 Hemoglobin (Bld) [Mass/Vol] 13.8 g/dL 12.0-15.0 [facility] Immature granulocytes/100 WB C Auto (Bld)Ordered By: Pieter Morgan on 08-02-2024 Immature granulocytes/100 WBC (Bld) 0.300 % 0.0-0.9 [facility] Comment on above: IG% - Immature Granu locytes (promyelocytes, myelocytes and metamyelocytes) > 1% indicates that a LEFT SHIFT is Present. Influenza virus A and B and SARS-CoV-2 (COVID-19) and Respiratory syncytial virus RNAOrdered By: Pieter Morgan on 08-02-2024 SARS-CoV-2 (COVID-19) RNA CHUCKY+probe Ql (Unsp spec) [facility] International normalized rat io (INR) calculationOrdered By: Pieter Morgan on 08-02-2024 INR Coag (Bld) [Relative time] 1.1 {INR} [facility] L499.0042on 08-02-2024 Trop T High Sen Normal <=14 [facility] Comment on above: Result Comment: Canc elled via OM: Order cancelled - Patient discharged Performed By: #### L 499.0042 ####[facility] [address] [place], [address] L499.0043on 08-02-2024 Trop T High Sen Normal <=14 [facility] Comment on above: Result Comment: Canc elled via OM: Order cancelled - Patient discharged Performed By: #### L 499.0043 ####[facility] [address] [place], [address] L501.4021on 08-02-2024 Trop T High Sen 38 ng/L High <=14 [facility] Comment on above: Performed By: #### L 100.0100, L300.3900, L300.4310, L500.2500, L501.4021 ####[facility] [address] [place], [address] LIPID PANEL WITH REFLEX TO M EASURED LDLon 08-02-2024 Cholesterol [Mass/Vol] 141 mg/dL NINF - 200 mg/dL [facility] Cholesterol in HDL [Mass/Vol] 38 mg/dL Low 40 - PINF mg/dL [facility] Cholesterol in LDL [Mass/Vol] 84 mg/dL 0 - 99 mg/dL [facility] Cholesterol non HDL [Mass/Vol] 103 mg/dL NINF - 130 mg/dL [facility] Cholesterol.total/Alta sterol in HDL [Mass ratio] 3.7 {ratio} NINF - 4.5 [facility] Triglyceride [Mass/Vol] 96 mg/dL NINF - 150 mg/dL [facility] Calculated LDL Cholesterol 84 mg/dL Normal 0-99 [facility] Comment on above: Result Comment: [<10 0 mg/dL: Optimal] [100-129 mg/dL: Near Optimal] [130-159 mg/dL: Borderline High] [160-189 mg/dL: High] [>189 mg/dL: Very High] Performed By: #### H EMO #### [facility] (DEFAULT) [address] [place] [address] Cholesterol [Mass/Vol] 141 mg/dL Normal <200 [facility] Comment on above: Result Comment: [<20 0 mg/dL: Desirable] [200-239 mg/dL: Borderline High] [>239 mg/dL: High] Performed By: #### H EMO #### [facility] (DEFAULT) [address] [place] [address] Cholesterol in HDL [Mass/Vol] 38 mg/dL Low >=40 [facility] Comment on above: Result Comment: [<40 mg/dL: Low (High Risk)] [>59 mg/dL: High (Low Risk)] Performed By: #### H EMO #### [facility] (DEFAULT) [address] [place] [address] Non HDL Cholesterol 103 mg/dL Normal <130 [facility] Comment on above: Performed By: #### H EMOGC #### [facility] (DEFAULT) [address] [place] [address] Total Cholesterol/HDL Ratio 3.7 Normal <4.5 [facility] Comment on above: Performed By: #### H EMOGC #### [facility] (DEFAULT) [address] [place] [address] Triglyceride [Mass/Vol] 96 mg/dL Normal <150 [facility] Comment on above: Result Comment: [<15 0 mg/dL: Desirable] [150-199 mg/dL: Borderline] [200-499 mg/dL: High] [>500 mg/dL: Very High] Performed By: #### [facility] [place] [place] #### [facility] (DEFAULT) [address] [place] [address] Lymphocytes Auto (Unsp spec) [#/Vol]Ordered By: Pieter Mrogan on 08-02-2024 Lymphocytes (Bld) [#/Vol] 1.56 10*3/uL 0.83-4.51 [facility] Lymphocytes/100 WBC Auto (Un sp spec)Ordered By: Pieter Morgan on 08-02-2024 Lymphocytes/100 WBC (Bld) 17.9 % Low 19-41 [facility] M100.678on 08-02-2024 M100.678 Pending SARS-CoV-2 (COVID 19) Negative INFLUENZA A Negative INFLUENZA B Negative RSV PCR Negative Normal [facility] Comment on above: Performed By: #### M 100.678 #### [facility] [address] [place] [address]. [place], [address] MAGNESIUMon 08-02-2024 Magnesium [Mass/Vol] 1.2 mg/dL Low 1.6 - 2 .6 mg/dL [facility] Magnesium [Mass/Vol] 1.2 mg/dL Low 1.6-2.6 [facility] Comment on above: Performed By: #### [facility] [place] [place] #### [facility] (DEFAULT) [address] [place] [address] MCV (mean corpuscular volume ) determinationOrdered By: Pieter Morgan on 08-02-2024 MCV (RBC) [Entitic vol] 92.1 fL 81-99 [facility] Mean corpuscular hemoglobin (MCH) determinationOrdered By: Pieter Morgan on 08-02-2024 MCH (RBC) [Entitic mass] 30.3 pg 27.0-32.0 [facility] Mean corpuscular hemoglobin concentration (MCHC) determinationOrdered By: Pieter Morgan on 08-02-2024 MCHC (RBC) [Mass/Vol] 32.9 g/dL 32-36 [facility] Mean platelet volume determi nationOrdered By: Pieter Morgan on 08-02-2024 Platelet mean volume (Bld) [Entitic vol] 10.7 fL 6.2-12.0 [facility] Monocyte percentageOrdered B y: Pieter Morgan on 08-02-2024 Monocytes/100 WBC (Bld) 8.9 % 0-10 [facility] NT-PRO B-TYPE NATRIURETIC PE PTIDEon 08-02-2024 Natriuretic peptide B (Bld) [Mass/Vol] 1115 pg/mL High <=540 [facility] Comment on above: Performed By: #### H EMOGC #### [facility] (DEFAULT) [address] [place] [address] Neutrophil percentageOrdered By: Pieter Morgan on 08-02-2024 Neutrophils/100 WBC (Bld) 71.4 % High 47-70 [facility] No Panel Informationon 08-02 Radiology Study observation (narrative) [facility] Interpretation and review of laboratory results Abnormal [facility] No Panel InformationOrdered By: Pieter Morgan on 08-02-2024 Troponin T High Sensitivity 38 ng/L High <14 [facility] [facility] Nucleated red blood cell per centageOrdered By: Pieter Morgan on 08-02-2024 Nucleated RBC/100 WBC (Bld) [Ratio] 0 % 0-5 [facility] PT,INR,PTTon 08-02-2024 aPTT Coag (PPP) [Time] 26.9 s [facility] INR Coag (Bld) [Relative time] 1.1 {INR} 0.9 - 1.1 [facility] Interpretation and review of laboratory results Normal [facility] PT Coag (PPP) [Time] 13.9 s [facility] aPTT Coag (Bld) [Time] 26.9 s Normal 24.0-34.3 [facility] Comment on above: Performed By: #### P TPTT ####[facility] (DEFAULT)[address] [place] [address] INR Coag (PPP) [Relative time] 1.1 {INR} Normal 0.9-1.1 [facility] Comment on above: Performed By: #### P TPTT ####[facility] (DEFAULT)[address] [place] [address] PT Coag (PPP) [Time] 13.9 s Normal 11.9-14.2 [facility] Comment on above: Performed By: #### P TPTT ####[facility] (DEFAULT)[address] [place] [address] Partial Thromboplast Timeon 08-02-2024 aPTT Coag (Bld) [Time] 28.4 s Normal 24.1-36.2 [facility] Comment on above: Performed By: #### L 100.0100, L300.3900, L300.4310, L500.2500, L501.4021 #### [facility] [address] [place], [place], [id number] Platelet countOrdered By: Racheal Morgan on 08-02-2024 Platelets (Bld) [#/Vol] 214 10*3/uL 150-450 [facility] Potassium (Unsp spec) [Mass/ Vol]Ordered By: Pieter Morgan on 08-02-2024 Potassium [Moles/Vol] 4.2 mmol/L 3.3-5.1 [facility] Potassium measurement (mass/ volume)Ordered By: Pieter Morgan on 08-02-2024 Potassium (Unsp spec) [Mass/Vol] 4.2 mmol/L 3.3-5.1 [facility] Prothrombin Time w/INRon INR Coag (PPP) [Relative time] 1.1 {INR} Normal [facility] Comment on above: Performed By: #### L 100.0100, L300.3900, L300.4310, L500.2500, L501.4021 #### [facility] [address] [place], [place], [id number] PT Coag (PPP) [Time] 14.1 s Normal 11.7-14.9 [facility] Comment on above: Performed By: #### L 100.0100, L300.3900, L300.4310, L500.2500, L501.4021 #### [facility] [address] [place], [address] Prothrombin timeOrdered By: Pieter Morgan on 08-02-2024 PT Coag (PPP) [Time] 14.1 s 11.7-14.9 [facility] RBC Auto (Bld) [#/Vol]Ordere d By: Pieter Morgan on 08-02-2024 RBC (Bld) [#/Vol] 4.56 10*6/uL 4.2-5.4 [facility] SCREEN: MRSA/MSSAon 08-03-19 25 Methicillin Resistant S. Aureus By Pcr Negative Normal Negative [facility] Comment on above: Order Comment: Colle ct [...] by the Clinical Microbiology Laboratory at [facility]. It has not been cleared or approved by the FDA.The laboratory is regulated under CLIA as qualified to perform high-complexity testing. This test is used for clinical purposes. It should not be regarded as investigational or for research. Performed By: #### T YPEC #### [facility] (DEFAULT) [address] [place] [address] Staphylococcus Aureus By Pcr Negative Normal Negative [facility] Comment on above: Order Comment: Colle ct [...] by the Clinical Microbiology Laboratory at [facility]. It has not been cleared or approved by the FDA.The laboratory is regulated under CLIA as qualified to perform high-complexity testing. This test is used for clinical purposes. It should not be regarded as investigational or for research. Performed By: #### T YPEC #### [facility] (DEFAULT) [address] [place] [address] STROKE Brain/Head without Co nton 08-02-2024 STROKE Brain/Head without Cont [facility] Services [address] [place] [id number] STROKE Brain/Head without Cont MR#: [id number] Acct: [id number] Name: LINDSAY ACUNA Rep #: [id number] : 1945 F 78 From: Kameron Cardoso MD PCP: Dr. Kameron Caruso MD Status: REG ER Study: STROKE Brain/Head without Cont Date of Exam: 0 08/02/24 Exam# [id number] Ordering Dr: Pieter Morgan MD EXAM: CT [...] 08/02/2024 at 1250 hours. Reading Location: [facility] CC: Dr. Pietre Morgan MD; Dr. Kameron Caruso MD Javascript Software Engineer: Signed Normal [facility] STROKE CTA Head AND Neck W/C onon 08-02-2024 STROKE CTA Head AND Neck W/Con [facility] Services [address] [place], [place] [id number] STROKE CTA Head AND Neck W/Con MR#: [id number] Acct: [id number] Name: LINDSAY ACUNA Rep #: [id number] : 1945 F 78 From: August ibrahim MD PCP: Dr. Kameron Caruso MD Status: REG ER Study: STROKE CTA Head AND Neck W/Con Date of Exam: 0 08/02/24 Exam# [id number] Ordering Dr: Pieter Morgan MD PROCEDURE: STROKE [...] impression: No significant stenosis seen. Reading Location: [place] [address] CC: Dr. Pieter Morgan MD; Dr. Kameron Caruso MD Javascript Software Engineer: Signed Normal [facility] Serum creatinine measurement (mass/volume)Ordered By: Pieter Morgan on 08-02-2024 Creatinine [Mass/Vol] 1.74 mg/dL High 0.70-1.20 [facility] Serum glucose measurement (m ass/volume)Ordered By: Pieter Morgan on 08-02-2024 Glucose [Mass/Vol] 235 mg/dL High 70-99 [facility] Serum or plasma calcium dayna urement (mass/volume)Ordered By: Pieter Morgan on 08-02-2024 Calcium [Mass/Vol] 9.0 mg/dL 7.6-11.0 [facility] Serum or plasma urea nitroge n measurement (mass/volume)Ordered By: Pieter Morgan on 08-02-2024 Urea nitrogen [Mass/Vol] 20 mg/dL High 4-19 [facility] Sodium levelOrdered By: Evert Morgan on 08-02-2024 Sodium [Moles/Vol] 132 mmol/L Low 133-145 [facility] TSH W/FT4 REFLEXon Interpretation and review of laboratory results Normal [facility] TSH Qn 1.662 m[IU]/L [facility] TSH 1.662 uIU/mL Normal 0.550-4.780 [facility] Comment on above: Performed By: #### X M #### [facility] (DEFAULT) [address] [place] [address] TYPE AND SCREENon 08-02-2024 ABO/RH(D) TYPE Negative [facility] Specimen Expiration 08/05/2024 23:59 [facility] ABO/RH(D) TYPE Negative Normal [facility] Comment on above: Performed By: #### X M #### [facility] (DEFAULT) [address] [place] [address] Specimen Expiration 08/05/2024 23:59 Normal [facility] Comment on above: Performed By: #### X M #### [facility] (DEFAULT) [address] [place] [address] URINALYSIS REFLEX TO CULTURE PERFORMABLEOrdered By: Namita De La Cruz on 08-02-2024 Appearance (U) Clear Clear [facility] Bacteria LM Ql (Urine sed) PRESENT Abnormal ABSENT [facility] Color (U) Yellow Yellow [facility] Epithelial cells.squamous LM Ql (Urine sed) 0-2/hpf 0-2/hpf, 3-5/hpf = 1+ [facility] Glucose Test strip (U) [Mass/Vol] 500 mg/dL Abnormal Negative [facility] Interpretation and review of laboratory results Abnormal [facility] Ketones (U) [Mass/Vol] Negative Negative [facility] Leukocyte esterase Test strip Ql (U) Moderate Abnormal Negative [facility] Nitrite Ql (U) Negative Negative [facility] pH (U) 6.5 [pH] 5.0 - 7.0 [facility] Protein (U) [Mass/Vol] Negative Negative [facility] RBC (U) [#/Vol] Small Abnormal Negative [facility] RBC LM.HPF (Urine sed) [#/Area] 3-5 Abnormal [facility] Specific gravity (U) [Rel density] 1.022 1.001 - 1.035 [facility] Urobilinogen (U) [Mass/Vol] 0.2 E.U./dL 0.2 E.U/dL, 1.0 E.U/dL [facility] WBC LM.HPF (Urine sed) [#/Area] /[HPF] Abnormal [facility] URINALYSIS REFLEX TO CULTURE PERFORMABLEon 08-02-2024 Appearance (U) Clear Normal Clear [facility] Comment on above: Order Comment: For i ndwelling catheters, specimen collection is acceptable on catheter day 1 and 2 only. ? Performed By: #### U [id number] #### [facility] (DEFAULT) [address] [place] [address] Bacteria PRESENT Abnormal ABSENT [facility] Comment on above: Order Comment: For i ndwelling catheters, specimen collection is acceptable on catheter day 1 and 2 only. ? Performed By: #### U [id number] #### [facility] (DEFAULT) [address] [place] [address] Blood Urine Small Abnormal Negative [facility] Comment on above: Order Comment: For i ndwelling catheters, specimen collection is acceptable on catheter day 1 and 2 only. ? Performed By: #### U [id number] #### [facility] (DEFAULT) [address] [place] [address] Color (U) Yellow Normal Yellow [facility] Comment on above: Order Comment: For i ndwelling catheters, specimen collection is acceptable on catheter day 1 and 2 only. ? Performed By: #### U [id number] #### [facility] (DEFAULT) [address] [place] [address] Glucose Ql (U) 500 mg/dL Abnormal Negative [facility] Comment on above: Order Comment: For i ndwelling catheters, specimen collection is acceptable on catheter day 1 and 2 only. ? Performed By: #### U [id number] #### [facility] (DEFAULT) [address] [place] [address] Ketones Ql (U) Negative Normal Negative [facility] Comment on above: Order Comment: For i ndwelling catheters, specimen collection is acceptable on catheter day 1 and 2 only. ? Performed By: #### U [id number] #### [facility] (DEFAULT) [address] [place] [address] Leukocyte esterase Test strip Ql (U) Moderate Abnormal Negative [facility] Comment on above: Order Comment: For i ndwelling catheters, specimen collection is acceptable on catheter day 1 and 2 only. ? Performed By: #### U [id number] #### [facility] (DEFAULT) [address] [place] [address] Nitrites Urine Negative Normal Negative [facility] Comment on above: Order Comment: For i ndwelling catheters, specimen collection is acceptable on catheter day 1 and 2 only. ? Performed By: #### U [id number] #### [facility] (DEFAULT) [address] [place] [address] pH (U) 6.5 [pH] Normal 5.0-7.0 [facility] Comment on above: Order Comment: For i ndwelling catheters, specimen collection is acceptable on catheter day 1 and 2 only. ? Performed By: #### U [id number] #### [facility] (DEFAULT) [address] [place] [address] Protein Urine Negative Normal Negative [facility] Comment on above: Order Comment: For i ndwelling catheters, specimen collection is acceptable on catheter day 1 and 2 only. ? Performed By: #### U [id number] #### [facility] (DEFAULT) [address] [place] [address] RBC Urine 3-5 Abnormal 0-2 [facility] Comment on above: Order Comment: For i ndwelling catheters, specimen collection is acceptable on catheter day 1 and 2 only. ? Performed By: #### U [id number] #### [facility] (DEFAULT) [address] [place] [address] Specific Vida Urine 1.022 Normal 1.001-1.035 [facility] Comment on above: Order Comment: For i ndwelling catheters, specimen collection is acceptable on catheter day 1 and 2 only. ? Performed By: #### U [id number] #### [facility] (DEFAULT) [address] [place] [address] Squamous/Epithelial Cells, Urine 0-2/hpf Normal 0-2/hpf, 3-5/hpf = 1+ [facility] Comment on above: Order Comment: For i ndwelling catheters, specimen collection is acceptable on catheter day 1 and 2 only. ? Performed By: #### U [id number] #### [facility] (DEFAULT) [address] [place] [address] Urobilinogen Urine 0.2 E.U./dL Normal 0.2 E.U/d L, 1.0 E.U/dL [facility] Comment on above: Order Comment: For i ndwelling catheters, specimen collection is acceptable on catheter day 1 and 2 only. ? Performed By: #### U [id number] #### [facility] (DEFAULT) [address] [place] [address] WBC LM.HPF (Urine sed) [#/Area] /[HPF] Abnormal 0 - 5 [facility] Comment on above: Order Comment: For i ndwelling catheters, specimen collection is acceptable on catheter day 1 and 2 only. ? Performed By: #### U [id number] #### [facility] (DEFAULT) [address] [place] [address] VON WILLEBRAND FACTOR AGon 0 08-02-2024 Von Willebrand Factor Antigen 230 % High 50-180 [facility] Comment on above: Performed By: #### H EMO #### [facility] (DEFAULT) [address] [place] [address] White blood cell (WBC) count Ordered By: Pieter Morgan on 08-02-2024 WBC (Bld) [#/Vol] 8.7 10*3/uL 4.4-11.0 [facility] XR Elbow - right 2 Viewson 0 08-02-2024 Radiology Study observation (narrative) [facility] XR Humerus - right Viewson 0 08-02-2024 Radiology Study observation (narrative) [facility] XR Wrist - right 3 Viewson 0 08-02-2024 Radiology Study observation (narrative) [facility] aPTT Coag (PPP) [Time]Vannessa beebe By: Pieter Morgan on 08-02-2024 aPTT Coag (Bld) [Time] 28.4 s 24.1-36.2 [facility] CNPNon 07-03-2024 CNPN Telephone (FAMPWS) LINDSAY ACUNA ([id number]) 1945 F Date Time Provider Department 07/03/24 [...] calling: self Call patient at: on cell [phone] (home) [phone] (cell) Was an appointment scheduled: No Closing statement: Results or non-symptom based questions: Thank you for calling [facility], your call will be returned within the next business day. Mj Bowling APRN.CHILD CARE SPECIALIST 07/03/2024 12:28 PM Signed The following approved medication requests have been transmitted electronically. Requested Prescriptions Signed Prescriptions Disp Refills doxycycline monohydrate (MONODOX) 100 mg capsule 56 capsule 0 Sig: Take 1 capsule by mouth two times a day for 28 days. Authorizing Provider: MJ GLOVER APRN.CHILD CARE SPECIALIST Allergies As of Date: 07/03/2024 Noted Allergy [...] Encounter Status:Closed by MJ GLOVER on 07/03/24 [facility]IND[facility] ([id number]) 1945 F Date Time Provider Department 07/02/24 [facility] During your visit today, we recorded the following information about you: Katia Grullon RN 07/02/2024 11:57 AM Signed Patient calls and is requesting Cardiology referral to be faxed to [facility]. Faxed referral as [...] Status:Closed by KATIA GRULLON on 07/02/24 [facility] [place] 06-28-2024 CNPN Telephone (FAMPTW) LINDSAY ACUNA ([id number]) 1945 F Date Time Provider Department 06/28/24 [...] calling: self Call patient at: on cell [phone] (home) [phone] (cell) Was an appointment scheduled: Leslie Gallegos [facility] Adenike Walton MA 06/28/2024 3:08 PM Signed [...] Status:Closed by BRET ARAMBULA on 07/01/24 Normal [facility] CNOVon 06-26-2024 CNOV Office Visit (FAMPWS ) LINDSAY ACUNA ([id number]) 1945 F Date Time Provider Department 06/26/24 9:40 AM [facility] SOTOMAYOR [facility] During your visit today, we recorded the following information about you: Pulse Respiration Blood pressure Weight 93/minute 16/minute 144/88 78.9 kg Emma Sotomayor APRN.CHILD CARE SPECIALIST 06/26/2024 12:37 PM Signed This is a [...] mouth daily with breakfast. blood sugar diagnostic (Intuitive BiosciencesUCH ULTRA TEST) test strip Test Blood Sugar one times daily Dx: E11.29 Insulin: No lancets (ContextoolTOUCH DELICA PLUS LANCET) 30 gauge Test blood [...] (more content not included)... Normal [facility] 06-24-2024 [facility] ARMANDLINDSAY Veronica ([id number]) 1945 F Date Time Provider Department 06/24/24 [facility] During your visit today, we recorded the following information about you: Katia Grullon RN 06/24/2024 1:22 PM Signed Patient calls and states that she is going to be going to [facility] and will need medications for Malaria [...] Encounter Status:Closed by KAMERON CARUSO on 06/24/24 [facility] 06-11-2024 CNPN Telephone (FAMPWS) ARMANDLINDSAY Veronica ([id number]) 1945 F Date Time Provider Department 06/11/24 [facility] During your visit today, we recorded the following information about you: Kameron Caruso MD 06/11/2024 2:43 PM Signed Please notify patient that her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 Result Comment: <150 mg/dL, Normal 150-199 mg/dL, Borderline high 200-499 mg/dL, High >499 mg/dL, Very high Performed By: #### 3 016-3, 44762-8, 88708-7 ####[facility] [id number] [place] [address] [place] TSH SerPl-aCncon 11-27-2023 TSH Qn 1.870 m[IU]/L Normal 0.270-4.200 [facility] Comment on above: Order Comment: Speci men Type: BLOOD SPECIMENOrdering Facility: [facility] Address: [address] [place] [address] Performed By: #### 3 016-3, 36428-0, 82494-0 ####[facility] [id number] [place] [address] [place] CNOVon 10-10-2023 CNOV Office Visit (UCWSTR ) LINDSAY ACUNA ([id number]) 1945 F Date Time Provider Department 10/10/23 7:30 AM [facility] During [facility] visit today, we recorded the following information about you: Temperature Pulse Respiration Blood pressure 97.5 degrees 58/minute 18/minute 128/82 Weight 82.1 kg David Dupree, [employer].CHILD CARE SPECIALIST 10/10/2023 8:11 AM Signed Subjective HPI Nontoxic-appearing [...] 1 tablet by mouth once daily. lancets (ContextoolTOUCH DELICA PLUS LANCET) 30 gauge Test blood [...] Rate and (more content not included)... Normal [facility] CNOVon 09-29-2023 CNOV Office Visit (UCWSTR ) LINDSAY ACUNA ([id number]) 1945 F Date Time Provider Department 09/29/23 2:15 PM RADHA LEVINE [facility] During your visit today, we recorded the following information about you: Temperature Pulse Respiration Blood pressure 97.8 degrees 54/minute 18/minute 148/91 Weight 84 kg Radha Levine APRN.CHILD CARE SPECIALIST 09/29/2023 6:12 PM Signed This note was created using NoteWriter. Subjective Lindsay Acuna is a 77 year old female. 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 Denies fever or chills Denies malaise or fatigue Denies new lotions, soaps, or medicines States that she was working out in the garden the same day the rash erupted. The history is provided by the patient. No motor vehicle parts interpreter was used. Rash This is a [...] 1 tablet by mouth once daily. lancets (ContextoolTOUCH DELICA PLUS LANCET) 30 gauge Test blood [...] state. Hematologi (more content not included)... Normal [facility] Glucose,Bedsideon 04-16-2019 Glucose [Mass/Vol] 161 mg/dL High 70-100 [facility] Comment on above: Result Comment: Test performed by glucose meter. Results may be 10%-15% lower than serum/plasma values. (CLIA ID [id number]) Performed By: #### B GLU #### [address] [address] Surgical Pathologyon 019 Surgical Pathology [id number] [facility] PATHOLOGY AND LABORATORY MEDICINE [address] [place] [address] FINAL SURGICAL PATHOLOGY REPORT ___ NAME: LINDSAY ACUNA : 1945 73 Y F TALA NO.: [id number] LOCATION: 1XEO PROCEDURE 01/09/2019 DATE: SURGEON: SANTIAGO [...] characteristics determined by the clinical laboratories of [facility]. They have not been cleared by the [...] negativity on decalcified specimens. Professional Performing Location: [place] [address]. DEPARTMENT OF PATHOLOGY AND LABORATORY MEDICINE [place], [place] [address] Normal [facility] .Auto Diffon 08-22-2018 Ammonia mass conc (P) 1.10 10 3/mcL High 0.15-1.00 [facility] ([place] Comment on above: Performed By: #### B MP, GFR #### [address] [address] Basophils #/vol (Bld) 0.00 10 3/mcL Normal 0.00-0.19 [facility] ([place] Comment on above: Performed By: #### B MP, GFR #### [facility] [address] [place] [address] Basophils/100 WBC (Bld) 0.3 % Normal 0.0-2.5 A [facility], [facility] ([place]) Comment on above: Performed By: #### B MP, GFR #### [facility] [address] [place] [address] Eosinophils #/vol (Bld) 0.00 10 3/mcL Normal 0.00-0.40 [facility] ([place] Comment on above: Performed By: #### B MP, GFR #### [address] [address] Eosinophils/100 WBC (Bld) 0.2 % Normal 0.0-7.0 [facility] ([place] Comment on above: Performed By: #### B MP, GFR #### [address] [address] Lymphocytes #/vol (Bld) 2.20 10 3/mcL Normal 0.77-3.85 [facility] ([place]) Comment on above: Performed By: #### B MP, GFR #### [address] [address] Lymphocytes/100 WBC (Bld) 20.5 % Normal 10.0-50.0 [facility] ([place]) Comment on above: Performed By: #### B MP, GFR #### [address] [address] Monocytes/100 WBC (Bld) 10.5 % Normal 1.7-13.0 A [facility] ([place]) Comment on above: Performed By: #### B MP, GFR #### [address] [address] Neutrophils/100 WBC (Bld) 68.5 % Normal 37.0-80.0 [facility] ([place]) Comment on above: Performed By: #### B MP, GFR #### [address] [address] .GFRon 08-22-2018 GFR Non- 33 ml/min/1.73sqm Normal [facility] ([place]) Comment on above: Result Comment: GFR [...] Performed By: #### Roby MP, GFR #### [place] [address] #### JOHN, ADIFF, ANEU #### [address] [address] GFR 40 ml/min/1.73sqm Normal [facility] ([place] Comment on above: Result Comment: GFR Population [...] Performed By: #### Roby MP, GFR #### [place] [address] #### JOHN, DORY, ANEU #### [address] [address] .NEUABSon 08-22-2018 Neutrophils #/vol (Bld) 7.40 10 3/mcL High 2.85-6.16 [facility] ([place] Comment on above: Performed By: #### B MP, GFR #### [address] [address] BMPon 08-22-2018 Calcium mass conc 8.3 mg/dL Low 8.4-10.2 [facility] ([place] Comment on above: Performed By: #### Roby MP, GFR #### [place] [address] #### CBC, ADIFF, ANEU #### [address] [address] Chloride molar conc 104 mmol/L Normal 98-107 [facility] ([place]) Comment on above: Performed By: #### B MP, GFR #### [place] [address] #### CBC, ADIFF, ANEU #### [address] [address] CO2 molar conc 25 mmol/L Normal 23-31 [facility] ([place] Comment on above: Performed By: #### B MP, GFR #### [place] [address] #### CBC, ADIFF, ANEU #### [address] [address] Creatinine mass conc 1.53 mg/dL High 0.55-1.02 [facility] ([place]) Comment on above: Performed By: #### B MP, GFR #### [place] [address] #### CBC, ADIFF, ANEU #### [address] [address] Electrolyte Balance 10.0 mEq/L Normal [facility] ([place] Comment on above: Performed By: #### Roby MP, GFR #### [place] [address] #### CBC, ADIFF, ANEU #### [address] [address] Glucose mass conc 149 mg/dL High 83-110 [facility] ([place] Comment on above: Performed By: #### B MP, GFR #### [place] [address] #### CBC, ADIFF, ANEU #### [address] [address] Potassium molar conc 4.3 mmol/L Normal 3.5-5.1 [facility] ([place] Comment on above: Performed By: #### B MP, GFR #### [place] [address] #### CBC, ADIFF, ANEU #### [address] [address] Sodium molar conc 139 mmol/L Normal 136-145 [facility] ([place] Comment on above: Performed By: #### B MP, GFR #### [address] [address] #### CBC, ADIFF, ANEU #### [address] [address] Urea nitrogen mass conc 32 mg/dL High 7-18 A [facility] ([place] Comment on above: Performed By: #### B MP, GFR #### [place] [address] #### CBC, ADIFF, ANEU #### [address] [address] Urea nitrogen/Creatinine mass ratio 21 ratio Normal 7-27 [facility] ([place] Comment on above: Performed By: #### B MP, GFR #### [place] [address] #### CBC, ADIFF, ANEU #### [address] [address] CBCon 08-22-2018 Erythrocyte distribution width Ratio (RBC) 12.6 % Normal 11.5-14.5 [facility] [place] Comment on above: Performed By: #### B MP, GFR #### [place] [address] Hematocrit Volume Fraction (Bld) 27.5 % Low 37.0-47.0 [facility] [place] Comment on above: Performed By: #### B MP, GFR #### [place] [address] Hemoglobin mass conc (Bld) 9.2 G/dL Low 12.0-16.0 [facility] ([place] Comment on above: Performed By: #### B MP, GFR #### [place] [address] MCH Entitic mass (RBC) 30.1 pg Normal 27.0-31.2 [facility] ([place] Comment on above: Performed By: #### B MP, GFR #### [address] [address] MCHC mass conc (RBC) 33.5 G/dL Normal 33.0-37.0 [facility] ([place] Comment on above: Performed By: #### B MP, GFR #### [address] [address] MCV Entitic volume (RBC) 89.8 fL Normal 80.0-94.0 [facility] ([place] Comment on above: Performed By: #### B MP, GFR #### [place] [address] Platelet mean volume Entitic volume (Bld) 9.3 fL Normal 7.4-10.4 [facility] [place] Comment on above: Performed By: #### B MP, GFR #### [address] [address] Platelets #/vol (Bld) 224 10 3/mcL Normal 130-400 A [facility] ([place] Comment on above: Performed By: #### B MP, GFR #### [place] [address] RBC #/vol (Bld) 3.06 10 6/mcL Low 4.20-5.40 [facility] ([place] Comment on above: Performed By: #### B MP, GFR #### [address] [address] WBC #/vol (Bld) 10.80 10 3/mcL Normal 4.60-10.80 [facility] ([place] Comment on above: Performed By: #### B MP, GFR #### [place] [address] XR KNEE 1 OR 2 VIEWS RIGHTon [...] AM Sign Date: 08/21/2018 9:55:37 AM Normal [facility] [place] KNEE W/O CONTRAST RIGHTon 08-09-2018 CT [...] PM Sign Date: 08/09/2018 5:04:12 PM Normal [facility] [place] .Auto Diffon 08-06-2018 Ammonia mass conc (P) 0.80 10 3/mcL Normal 0.15-1.00 [facility] ([place] Comment on above: Performed By: #### C DORY SMITH ANEU #### [place] [address] #### A1C #### [place] [address] Basophils #/vol (Bld) 0.10 10 3/mcL Normal 0.00-0.19 [facility] [place] Comment on above: Performed By: #### C DORY SMITH ANEU #### [address] [address] #### A1C #### [place] [address] Basophils/100 WBC (Bld) 0.6 % Normal 0.0-2.5 A [facility] ([place]) Comment on above: Performed By: #### C BCDORY, ANEU #### [address] [address] #### A1C #### [address] [address] Eosinophils #/vol (Bld) 0.20 10 3/mcL Normal 0.00-0.40 [facility] ([place]) Comment on above: Performed By: #### C BCDORY, ANEU #### [address] [address] #### A1C #### [address] [address] Eosinophils/100 WBC (Bld) 1.7 % Normal 0.0-7.0 [facility] ([place] Comment on above: Performed By: #### C DORY SMITH, ANEU #### [place] [address] #### A1C #### [address] [address] Lymphocytes #/vol (Bld) 1.90 10 3/mcL Normal 0.77-3.85 [facility] ([place] Comment on above: Performed By: #### C DORY SMITH, ANEU #### [place] [address] #### A1C #### [address] [address] Lymphocytes/100 WBC (Bld) 20.8 % Normal 10.0-50.0 [facility] ([place] Comment on above: Performed By: #### C DORY SMITH, ANEU #### [address] [address] #### A1C #### [address] [address] Monocytes/100 WBC (Bld) 9.3 % Normal 1.7-13.0 A [facility] ([place]) Comment on above: Performed By: #### C BCDORY, ANEU #### [address] [address] #### A1C #### [address] [address] Neutrophils/100 WBC (Bld) 67.6 % Normal 37.0-80.0 [facility] [place] Comment on above: Performed By: #### C BCDORY, ANEU #### [address] [address] #### A1C #### [address] [address] .GFRon 08-06-2018 GFR 51 ml/min/1.73sqm Normal [facility] [place] Comment on above: Result Comment: GFR Population [...] Performed By: #### B MP, GFR #### [address] [address] GFR Non- 42 ml/min/1.73sqm Normal [facility] ([place] Comment on above: Result Comment: GFR Population [...] Performed By: #### B MP, GFR #### [place] [address] .NEUABSon 08-06-2018 Neutrophils #/vol (Bld) 6.20 10 3/mcL High 2.85-6.16 [facility] [place] Comment on above: Performed By: #### C BC, ADIFF, ANEU #### [address] [address] #### A1C #### [place] [address] A1Con 08-06-2018 Hemoglobin A1c/Hemoglobin.total mass fraction (Bld) 7.9 % High 4.5-6.2 [facility] ([place] Comment on above: Performed By: #### C BC, KEITHIFF, ANEU #### [place] [address] #### A1C #### [place] [address] BMPon 08-06-2018 Calcium mass conc 9.2 mg/dL Normal 8.4-10.2 [facility] [place] Comment on above: Performed By: #### B MP, GFR #### [place] [address] Chloride molar conc 105 mmol/L Normal 98-107 [facility] ([place] Comment on above: Performed By: #### B MP, GFR #### [place] [address] CO2 molar conc 27 mmol/L Normal 23-31 [facility] [place] Comment on above: Performed By: #### B MP, GFR #### [place] [address] Creatinine mass conc 1.25 mg/dL High 0.55-1.02 [facility] ([place] Comment on above: Performed By: #### B MP, GFR #### [place] [id number] Electrolyte Balance 11.0 mEq/L Normal [facility] ([place] Comment on above: Performed By: #### B MP, GFR #### [address] [address] Glucose mass conc 70 mg/dL Low 83-110 [facility] [place] Comment on above: Performed By: #### B MP, GFR #### [address] [address] Potassium molar conc 5.0 mmol/L Normal 3.5-5.1 [facility] ([place] Comment on above: Performed By: #### B MP, GFR #### [address] [address] Sodium molar conc 143 mmol/L Normal 136-145 [facility] [place] Comment on above: Performed By: #### B MP, GFR #### [address] [address] Urea nitrogen mass conc 26 mg/dL High 7-18 A [facility] [place] Comment on above: Performed By: #### B MP, GFR #### [address] [address] Urea nitrogen/Creatinine mass ratio 21 ratio Normal 7-27 [facility] [place] Comment on above: Performed By: #### B MP, GFR #### [address] [address] CBCon 08-06-2018 Erythrocyte distribution width Ratio (RBC) 12.2 % Normal 11.5-14.5 [facility] ([place] Comment on above: Performed By: #### C BCDORY, ANEU #### [address] [address] #### A1C #### [address] [address] Hematocrit Volume Fraction (Bld) 34.6 % Low 37.0-47.0 [facility] ([place] Comment on above: Performed By: #### C BC ADIFF, ANEU #### [address] [address] #### A1C #### [place] [address] Hemoglobin mass conc (Bld) 11.7 G/dL Low 12.0-16.0 [facility] ([place] Comment on above: Performed By: #### C BCDORY, ANEU #### [address] [address] #### A1C #### [place] [address] MCH Entitic mass (RBC) 30.6 pg Normal 27.0-31.2 [facility] ([place]) Comment on above: Performed By: #### C DORY SMITH, ANEU #### [address] [address] #### A1C #### [place] [address] MCHC mass conc (RBC) 33.7 G/dL Normal 33.0-37.0 [facility] ([place] Comment on above: Performed By: #### C DORY SMITH, ANEU #### [address] [address] #### A1C #### [place] [address] MCV Entitic volume (RBC) 90.9 fL Normal 80.0-94.0 [facility] ([place] Comment on above: Performed By: #### C DORY SMITH, ANEU #### [place] [address] #### A1C #### [place] [address] Platelet mean volume Entitic volume (Bld) 8.8 fL Normal 7.4-10.4 [facility] ([place] Comment on above: Performed By: #### C DORY SMITH, ANEU #### [address] [address] #### A1C #### [place] [address] Platelets #/vol (Bld) 355 10 3/mcL Normal 130-400 A [facility] ([place]) Comment on above: Performed By: #### C BC, ADIFF, ANEU #### [address] [address] #### A1C #### [facility] [address] [place] [address] RBC #/vol (Bld) 3.81 10 6/mcL Low 4.20-5.40 [facility] ([place] Comment on above: Performed By: #### C BC, ADIFF, ANEU #### [address] [address] #### A1C #### [address] [address] WBC #/vol (Bld) 9.20 10 3/mcL Normal 4.60-10.80 [facility] ([place] Comment on above: Performed By: #### C BC, ADIFF, ANEU #### [address] [address] #### A1C #### [place] [address] Vital Signs Date Time Vital Sign Value Performing Clinician Facility 10-02-2024 09:21-0400 Body height 167.[address] Kameron Caruso MD Work Phone: [facility] 10-02-2024 09:21-0400 Diastolic blood pressure 71 mm[Hg] Dr. Kameron Caruso MD Work Phone: [facility] 10-02-2024 09:21-0400 Heart rate 77 /min Dr. Kameron Caruso MD Work Phone: [facility] 10-02-2024 09:21-0400 Respiratory rate 16 /min Dr. Kameron Caruso MD Work Phone: [facility] 10-02-2024 09:21-0400 Systolic blood pressure 111 mm[Hg] Dr. Kameron Caruso MD Work Phone: [facility] 09-09-2024 09:02-0400 Heart rate 100 /min SILVINO HA DO Tyler Garcia 09-09-2024 07:58-0400 Blood Pressure Cuff Size SILVINO CIDATZSHITAL DO Tyler Garcia 09-09-2024 07:58-0400 Blood Pressure Location SILVINO HA DO Tyler Garcia 09-09-2024 07:58-0400 Blood Pressure Method SILVINO CIDATZSHITAL DO Tyler Garcia 09-09-2024 07:58-0400 Body temperature 96.8 [degF] SILVINO CIDATZLE DO Tyler Garcia 09-09-2024 07:58-0400 Diastolic Blood Pressure Non-Invasive 78 mm[Hg] SILVINO PALAKATZSHITAL DO Tyler Calion 09-09-2024 07:58-0400 Heart rate 110 /min SILVINO PALAKATZSHITLA DO Tyler Calion 09-09-2024 07:58-0400 Reason For Taking VItal Signs SILVINO RADERSHITAL DO Tyler Calion 09-09-2024 07:58-0400 Respiratory rate 16 /min SILVINO RADERSHITAL DO Tyler Calion 09-09-2024 07:58-0400 Systolic Blood Pressure Non-Invasive 122 mm[Hg] SILVINO CIDATZSHITAL DO Tyler Calion 09-09-2024 02:45-0400 Body temperature 97.7 [degF] SILVINO CIDATZLE DO Tyler Calion 09-09-2024 02:45-0400 Diastolic Blood Pressure Non-Invasive 60 mm[Hg] SILVINO HA DO Tyler Calion 09-09-2024 02:45-0400 Heart rate 92 /min SILVINO HA DO Tyler Calion 09-09-2024 02:45-0400 Respiratory rate 16 /min SILVINO CIDATZLE DO Tyler Calion 09-09-2024 02:45-0400 Systolic Blood Pressure Non-Invasive 108 mm[Hg] SILVINO CIDATZLE DO Tyler Calion 09-08-2024 22:28-0400 Blood Pressure Cuff Size SILVINO CIDATZLE DO Tyler Calion 09-08-2024 22:28-0400 Blood Pressure Location SILVINO CIDATZLE DO Tyler Calion 09-08-2024 22:28-0400 Blood Pressure Method SILVINO CIDATZLE DO Tyler Calion 09-08-2024 22:28-0400 Body temperature 97.88 [degF] SILVINO CIDATZLE DO Tyler Calion 09-08-2024 22:28-0400 Diastolic Blood Pressure Non-Invasive 54 mm[Hg] SILVINO CIDATZLE DO Tyler Calion 09-08-2024 22:28-0400 Heart rate 92 /min SILVINO CIDATZLE DO Tyelr Calion 09-08-2024 22:28-0400 Reason For Taking VItal Signs SILVINO CIDATZLE DO Tyler Calion 09-08-2024 22:28-0400 Respiratory rate 16 /min SILVINO CIDATZLE DO Tyler Calion 09-08-2024 22:28-0400 Systolic Blood Pressure Non-Invasive 118 mm[Hg] SILVINO CIDATZLE DO Tyler Calion 09-08-2024 18:21-0400 Heart rate 90 /min ISLVINO PALAKATZLE DO [facility] 09-08-2024 09:08-0400 Blood Pressure Cuff Size SILVINO RADERSHITAL DO Tyler Garcia 09-08-2024 09:08-0400 Blood Pressure Location SILVINO HA DO Tyler Garcia 09-08-2024 09:08-0400 Blood Pressure Method SILVINO CIDATZSHITAL DO Tyler Calion 09-08-2024 09:08-0400 Heart rate 114 /min SILVINO CIDBEULAH DO Tyler Calion 09-08-2024 09:08-0400 Reason For Taking VItal Signs SILVINO CIDBEULAH DO Tyler Calion 09-04-2024 10:54-0400 Body temperature 96.62 [degF] SILVINO HA DO Tyler Calion 09-03-2024 00:26-0400 Body temperature 97.34 [degF] SILVINO CIDATZLE DO Tyler Calion 08-30-2024 22:54-0400 Body temperature 98.06 [degF] SILVINO RADERSHITAL DO Tyler Calion 08-26-2024 10:36-0400 Body weight 76 kg SILVINO HA DO Tyler Calion 08-19-2024 06:00-0400 Body weight 75.3 kg SILVINO HA DO Tyler Calion 08-15-2024 14:27-0400 Body height 170.2 cm SILVINO HA DO Tyler Calion 08-15-2024 14:27-0400 Body weight 75.4 kg SILVINO HA DO [facility] 08-15-2024 14:27-0400 Body weight 26.03 kg/m2 SILVINO HA DO Tyler Garcia 08-15-2024 09:02-0400 Diastolic blood pressure 69 mm[Hg] Prema Ramos MD Work Phone: [facility] 08-15-2024 09:02-0400 Systolic blood pressure 128 mm[Hg] Prema Ramos MD Work Phone: [facility] 08-15-2024 07:28-0400 Heart rate 86 /min Prema Ramos MD Work Phone: 8(923)[phone] [address] 08-15-2024 07:18-0400 Body temperature 97.3 [degF] Prema Ramos MD Work Phone: 5(659)[phone] [address] 08-15-2024 07:18-0400 Respiratory rate 23 /min Prema Ramos MD Work Phone: [facility] 08-15-2024 07:18-0400 SaO2% (BldA) [Mass fraction] 95 % Prema Ramos MD Work Phone: [facility] 08-05-2024 08:00-0400 Body height 170.2 cm Prema Ramos MD Work Phone: [facility] 08-05-2024 08:00-0400 Body mass index (BMI) [Ratio] 26.94 kg/m2 Prema Ramos MD Work Phone: [facility] 08-05-2024 08:00-0400 Body weight 78.02 kg Prema Ramos MD Work Phone: [facility] 08-02-2024 13:52-0400 Body temperature 98 [degF] Dr. Kameron Caruso MD Work Phone: [facility] 08-02-2024 13:52-0400 Diastolic blood pressure 91 mm[Hg] Dr. Kameron Caruso MD Work Phone: [facility] 08-02-2024 13:52-0400 Heart rate 109 /min Dr. Kameron Caruso MD Work Phone: [facility] 08-02-2024 13:52-0400 Respiratory rate 16 /min Dr. Kameron Caruso MD Work Phone: [phone] [place] [address] 08-02-2024 13:52-0400 SaO2% (BldA) [Mass fraction] 98 % Dr. Kameron Caruso MD Work Phone: [facility] 08-02-2024 13:52-0400 Systolic blood pressure 153 mm[Hg] Dr. Kameron Caruso MD Work Phone: [facility] 08-02-2024 12:46-0400 Body height 167.[address] Kameron Caruso MD Work Phone: [facility] 08-02-2024 12:46-0400 Body mass index (BMI) [Ratio] 26.6 kg/m2 Dr. Kameron Caruso MD Work Phone: [facility] 08-02-2024 12:46-0400 Body weight [address] Kameron Caruso MD Work Phone: [facility] 06-26-2024 09:39-0500 Body mass index (BMI) [Ratio] 27.25 kg/m2 Emma Sotomayor APRN.CHILD CARE SPECIALIST Work Phone: [facility] 06-26-2024 09:39-0500 Body weight 78.93 kg Emma Sotomayor APRN.CHILD CARE SPECIALIST Work Phone: [facility] 06-26-2024 09:39-0500 Diastolic blood pressure 88 mm[Hg] Emma Sotomayor APRN.CHILD CARE SPECIALIST Work Phone: [facility] 06-26-2024 09:39-0500 Heart rate 93 /min Emma Sotomayor APRN.CHILD CARE SPECIALIST Work Phone: [facility] 06-26-2024 09:39-0500 Respiratory rate 16 /min Emma Sotomayor [employer].CHILD CARE SPECIALIST Work Phone: [facility] 06-26-2024 09:39-0500 SaO2% (BldA) [Mass fraction] 98 % Emma Sotomayor [employer] H[employer]IVER.CHILD CARE SPECIALIST Work Phone: [facility] 06-26-2024 09:39-0500 Systolic blood pressure 144 mm[Hg] Emma Sotomayor [employer] H[employer]IVER.CHILD CARE SPECIALIST Work Phone: [facility] 05-31-2024 08:56-0500 Diastolic blood pressure 84 mm[Hg] Kameron Caruso MD Work Phone: [facility] 05-31-2024 08:56-0500 Systolic blood pressure 136 mm[Hg] Kameron Caruso MD Work Phone: [facility] 05-31-2024 08:47-0500 Body mass index (BMI) [Ratio] 27.28 kg/m2 Kameron Caruso MD Work Phone: [facility] 05-31-2024 08:47-0500 Body weight 79 kg Kameron Caruso MD Work Phone: [facility] 05-31-2024 08:47-0500 Heart rate 100 /min Kameron Caruso MD Work Phone: [facility] 05-31-2024 08:47-0500 Respiratory rate 18 /min Kameron Caruso MD Work Phone: [facility] 11-28-2023 09:42-0400 Diastolic blood pressure 78 mm[Hg] Kameron Caruso MD Work Phone: [facility] 11-28-2023 09:42-0400 Systolic blood pressure 142 mm[Hg] Kameron Caruso MD Work Phone: [facility] 11-28-2023 09:41-0400 Body mass index (BMI) [Ratio] 27.82 kg/m2 Kameron Caruso MD Work Phone: [facility] 11-28-2023 09:41-0400 Body weight 80.56 kg Kameron Caruso MD Work Phone: [facility] 11-28-2023 09:41-0400 Heart rate 68 /min Kameron Caruso MD Work Phone: [facility] 11-28-2023 09:41-0400 Respiratory rate 18 /min Kameron Caruso MD Work Phone: [facility] 10-10-2023 07:31-0400 Body mass index (BMI) [Ratio] 28.35 kg/m2 David Dupree [employer] H[employer]IVER.CHILD CARE SPECIALIST Work Phone: [facility] 10-10-2023 07:31-0400 Body temperature 97.5 [degF] David Dupree [employer] H[employer]IVER.CHILD CARE SPECIALIST Work Phone: [facility] 10-10-2023 07:31-0400 Body weight 82.1 kg David Dupree [employer]IVER.CHILD CARE SPECIALIST Work Phone: [facility] 10-10-2023 07:31-0400 Diastolic blood pressure 82 mm[Hg] David Dupree [employer] H[employer]IVER.CHILD CARE SPECIALIST Work Phone: [facility] 10-10-2023 07:31-0400 Heart rate 58 /min David Dupree [employer] H[employer]IVER.CHILD CARE SPECIALIST Work Phone: [facility] 10-10-2023 07:31-0400 Respiratory rate 18 /min David Dupree [employer] H[employer]IVER.CHILD CARE SPECIALIST Work Phone: [facility] 10-10-2023 07:31-0400 SaO2% (BldA) [Mass fraction] 100 % David Dupree [employer] H[employer]IVER.CHILD CARE SPECIALIST Work Phone: [facility] 10-10-2023 07:31-0400 Systolic blood pressure 128 mm[Hg] David Dupree [employer] H[employer]IVER.CHILD CARE SPECIALIST Work Phone: [facility] 09-29-2023 14:14-0400 Body mass index (BMI) [Ratio] 29 kg/m2 Radha Levine [employer]IVER.CHILD CARE SPECIALIST Work Phone: [facility] 09-29-2023 14:14-0400 Body temperature 97.81 [degF] Radha Levine [employer]IVER.CHILD CARE SPECIALIST Work Phone: [facility] 09-29-2023 14:14-0400 Body weight 84 kg Radha Levine [employer] H[employer]IVER.CHILD CARE SPECIALIST Work Phone: [facility] 09-29-2023 14:14-0400 Diastolic blood pressure 91 mm[Hg] Radha Levine [employer] H[employer]IVER.CHILD CARE SPECIALIST Work Phone: [facility] 09-29-2023 14:14-0400 Heart rate 54 /min Radha Levine [employer] H[employer]IVER.CHILD CARE SPECIALIST Work Phone: [facility] 09-29-2023 14:14-0400 Respiratory rate 18 /min Radha Levine [employer]IVER.CHILD CARE SPECIALIST Work Phone: [facility] 09-29-2023 14:14-0400 SaO2% (BldA) [Mass fraction] 99 % Radha Levine [employer]IVER.CHILD CARE SPECIALIST Work Phone: [facility] 09-29-2023 14:14-0400 Systolic blood pressure 148 mm[Hg] Radha Levine [employer]IVER.CHILD CARE SPECIALIST Work Phone: [facility] 05-27-2022 09:42-0500 Body weight 83.83 kg Kameron Caruso MD Work Phone: [facility] 05-27-2022 09:42-0500 Diastolic blood pressure 84 mm[Hg] Kameron Caruso MD Work Phone: [facility] 05-27-2022 09:42-0500 Heart rate 68 /min Kameron Caruso MD Work Phone: [facility] 05-27-2022 09:42-0500 Respiratory rate 16 /min Kameron Caruso MD Work Phone: [facility] 05-27-2022 09:42-0500 Systolic blood pressure 136 mm[Hg] Kameron Caruso MD Work Phone: [facility] 03-02-2022 10:52-0400 Diastolic blood pressure 76 mm[Hg] Emma Sotomayor [employer] H[employer]IVER.CHILD CARE SPECIALIST Work Phone: [facility] 03-02-2022 10:52-0400 Heart rate 92 /min Emma Canalesnevinfreddie [employer] HITCH DRIVER.CHILD CARE SPECIALIST Work Phone: [facility] 03-02-2022 10:52-0400 Respiratory rate 18 /min Emma Canalesnevinfreddie [employer] H[employer]SE HITCH DRIVER.CHILD CARE SPECIALIST Work Phone: [facility] 03-02-2022 10:52-0400 Systolic blood pressure 140 mm[Hg] Emma Светлана [employer]SE HITCH DRIVER.CHILD CARE SPECIALIST Work Phone: [facility] 11-23-2021 09:39-0400 Body weight 83.1 kg Kameron Caruso MD Work Phone: [facility] 11-23-2021 09:39-0400 Diastolic blood pressure 80 mm[Hg] Kameron Crauso MD Work Phone: [facility] 11-23-2021 09:39-0400 Heart rate 84 /min Kameron Caruso MD Work Phone: [facility] 11-23-2021 09:39-0400 Respiratory rate 16 /min Kameron Caruso MD Work Phone: [facility] 11-23-2021 09:39-0400 Systolic blood pressure 138 mm[Hg] Kameron Caruso MD Work Phone: [facility] 10-16-2019 10:09-0400 BP Diastolic 72 mm[Hg] [facility] , [place] 10-16-2019 10:09-0400 BP Systolic 144 mm[Hg] [facility] , [place] 10-16-2019 10:09-0400 Pulse (Heart Rate) 62 /min [facility], [place] 10-16-2019 10:09-0400 Pulse Oximetry 98 % [facility] , [place] 10-16-2019 10:09-0400 Respiratory Rate 18 /min [facility] [place] 10-16-2019 09:15-0400 BMI (Body Mass Index) 29.44 kg/m2 [facility], [place] 10-16-2019 09:15-0400 Body Temperature 97.81 [degF] Santiago Miller [facility] , [place] 10-16-2019 09:15-0400 Body weight 85.28 kg Santiago Miller [facility] , [place] 10-16-2019 09:15-0400 Height 170.2 cm Santiago Miller [facility] , [place] 01-09-2019 12:06-0400 BP Diastolic 73 mm[Hg] Santiago Miller [facility] , [place] 01-09-2019 12:06-0400 BP Systolic 121 mm[Hg] Santiago Miller [facility] , [place] 01-09-2019 11:50-0400 Pulse (Heart Rate) 64 /min Santiago Miller [facility], [place] 01-09-2019 11:50-0400 Pulse Oximetry 100 % Santiago Miller [facility] , [place] 01-09-2019 11:50-0400 Respiratory Rate 18 /min Santiago Miller [facility], [place] 01-09-2019 10:28-0400 BMI (Body Mass Index) 28.82 kg/m2 Santiago Miller [facility], [place] 01-09-2019 10:28-0400 Body weight 83.46 kg Santiago Miller [facility] , [place] 01-09-2019 10:28-0400 Height 170.2 cm Santiago Miller [facility] , [place] 01-09-2019 10:27-0400 Body Temperature 97.5 [degF] Santiago Miller [place], [place] Encounters Encounter Date Encounter Type Care Provider Facility Start: 02-25-2025 ambulatory Kameron Lovelaceck Facilit y:[facility] Start: 02-18-2025 ambulatory Kameron Elderbrock Facilit y:[facility] Start: 02-11-2025 ambulatory Kameron Elderbrock Facilit y:[facility] Start: 02-11-2025 Safia Torres Start: 02-04-2025 ambulatory Kameron Elderbrock Facilit y:[facility] Start: 02-04-2025 Safia Torres Start: 01-28-2025 ambulatory Kameron Elderbrock Facilit y:[facility] Start: 01-28-2025 Safia Torres Start: 01-21-2025 ambulatory Kameron Caruso Facilit y:[facility] Start: 01-21-2025 Safia SOMMER L - [place] Start: 01-14-2025 ambulatory Kameron Caruso Facilit y:[facility] Start: 01-14-2025 Safia Martin - [place] Start: 01-07-2025 Safia Forde Veronica - [place] Start: 01-07-2025 End: 01-07-2025 ambulatory Kameron Caruso Facility:[facility] Start: 12-31-2024 End: 12-31-[address] Kameron Caruso MD Work Phone: -[facility] Start: 12-31-2024 End: 12-31-2024 Dr. Safia Ruelas MD [facility] Work Phone: Start: 12-24-2024 ambulatory Efewongbe Oleghe OLS Fa cility:[facility] Start: 12-24-2024 Safia Forde L - [place] Start: 12-17-2024 ambulatory Efewongbe Oleghe OLS Fa cility:[facility] Start: 12-17-2024 Safia Martin - [place] Start: 12-10-2024 ambulatory Efewongbe Oleghe OLS Fa cility:[facility] Start: 12-10-2024 Safia Forde Veronica - [place] Start: 12-03-2024 ambulatory Efewongbe Oleghe OLS Fa cility:[facility] Start: 12-03-2024 Safia Forde Veronica - [place] Start: 11-28-2024 End: 11-28-[address] Kameron Caruso MD Work Phone: [facility] Start: 11-28-2024 End: 11-28-2024 Bret WILKERSON -[facility] Work Phone: Start: 11-26-2024 ambulatory Efjean mariejosé antonio Griderbonimelanie OLS Fa cility:[facility] Start: 11-26-2024 Registered Referred Safia Torres Start: 11-26-2024 Safia Torres Start: 11-25-2024 End: 11-25-[address] Kameron Caruso MD Work Phone: -[facility] Start: 11-25-2024 Registered Referred Safia Torres Start: 11-25-2024 End: 11-25-2024 Safia Torres Start: 11-25-2024 End: 11-25-2024 ambulatory Efjean mariejosé antonio Ruelas OLS Facility:[facility] Start: 11-20-2024 End: 11-20-[address] Kameron Caruso MD Work Phone: -[facility] Start: 11-20-2024 End: 11-20-2024 Bret Snyder [facility] -[facility] Work Phone: Start: 11-19-2024 ambulatory Leonidesjosé antonio Ruelsa OLS Fa cility:[facility] Start: 11-19-2024 Registered Referred Safia Torres Start: 11-19-2024 Safia Forde Veronica Torres Start: 11-12-2024 End: 11-12-[address] Kameron Caruso MD Work Phone: -[facility] Start: 11-12-2024 Registered Referred Safia Torres Start: 11-12-2024 End: 11-12-2024 Safia Torres Start: 11-12-2024 End: 11-12-2024 ambulatory Efjean mariejosé antonio VARGAS Facility:[facility] Start: 11-05-2024 ambulatory Efewjosé antonio Griderbonimelanie OLS Fa cility:[facility] Start: 11-05-2024 Registered Referred Safia Torres Start: 11-05-2024 Safia Torres Start: 10-30-2024 End: 10-30-[address] Kameron Caruso MD Work Phone: [facility] Start: 10-30-2024 End: 10-30-2024 Patient encounter procedure Bret Snyder NP-[facility] Work Phone: Start: 10-30-2024 End: 10-30-2024 Bret Snyder NP-[facility] Work Phone: Start: 10-29-2024 End: 10-29-[address] Safia Ruelas MD -[facility] Work Phone: Start: 10-29-2024 End: 10-29-[address] Kameron Caruso MD Work Phone: [facility] Start: 10-29-2024 Registered Referred Safia Torres Start: 10-29-2024 End: 10-29-2024 Dr. Safia Ruelas MD -[facility] Work Phone: Start: 10-29-2024 End: 10-29-2024 ambulatory Safia Ruelas OLS Facility:[facility] Start: 10-23-2024 ambulatory Safia Ruelas OLS Fa cility:[facility] Start: 10-23-2024 Registered Referred Safia Torres Start: 10-23-2024 Safia Torres Start: 10-22-2024 End: 10-22-2024 [facility] Start: 10-22-2024 End: 10-22-[address] Kameron Caruso MD Work Phone: [facility] Start: 10-22-2024 Registered Referred Safia Torres Start: 10-22-2024 End: 10-22-2024 [facility] Start: 10-15-2024 ambulatory Efewongbe Oleghe OLS Fa cility:[facility] Start: 10-15-2024 Registered Referred Safia Torres Start: 10-15-2024 Safia Torres Start: 10-09-2024 End: 10-09-[address] Kameron Caruso MD Work Phone: [facility] Start: 10-09-2024 End: 10-09-2024 Patient encounter procedure Bret Snyder [facility] Work Phone: Start: 10-09-2024 End: 10-09-2024 Bret Snyder [facility] Work Phone: Start: 10-08-2024 ambulatory Efewjosé antonio Westone OLS Fa cility:[facility] Start: 10-08-2024 Registered Referred Safia Torres Start: 10-08-2024 Safia Torres Start: 10-02-2024 End: 10-02-[address] Mj Benavides MD -[facility] Work Phone: Start: 10-02-2024 End: 10-02-2024 Dr. Mj Benavides MD -[facility] Work Phone: Start: 10-02-2024 End: 10-02-[address] Kameron Caruso MD Work Phone: [facility] Work Phone: Start: 10-01-2024 ambulatory Efewongbe Oleghe OLS Fa cility:[facility] Start: 10-01-2024 Registered Referred Safia Torres Start: 10-01-2024 Safia Torres Start: 09-29-2024 ambulatory Efewongbe Oleghe OLS Fa cility:[facility] Start: 09-29-2024 Registered Referred Safia Torres Start: 09-29-2024 Safia Martin - [place] Start: 09-24-2024 ambulatory Efewongbe Oleghe OLS Fa cility:[facility] Start: 09-24-2024 Registered Referred Safia Torres Start: 09-24-2024 Safia Martin - [place] Start: 09-17-2024 ambulatory Efewongbe Enricoe OLS Fa cility:[facility] Start: 09-17-2024 Registered Referred Safia Torres Start: 09-17-2024 Safia Forde Veronica Torres Start: 09-11-2024 End: 09-11-2024 ambulatory [facility] Facility:[facility] Start: 09-11-2024 End: 09-11-2024 Patient encounter procedure Bret Saha [facility] Work Phone: Start: 09-11-2024 End: 09-11-2024 Bret Saha [facility] Work Phone: Start: 09-10-2024 End: 09-10-[address] Safia Saha [facility] Work Phone: Start: 09-10-2024 End: 09-10-2024 ambulatory [facility] Facility:[facility] Start: 09-10-2024 Registered Referred Safia Torres Start: 09-10-2024 End: 09-10-2024 Dr. Safia Saha [facility] Work Phone: Start: 08-30-2024 End: 08-30-2024 Telephone encounter Kameron Caruso MD Work Phone: [facility] [place] Comment on above: Tyler [facility] requesti fawn verbal agree to follow Start: 08-15-2024 End: 09-09-2024 Evaluation and management of inpatient SILVINO HA DO Tyler Radha Start: 08-09-2024 Evaluation and manag ement of inpatient KAMERON CARUSO Facility:[facility] Start: 08-06-2024 Evaluation and manag ement of inpatient [facility] Start: 08-02-2024 End: 08-02-2024 ambulatory [facility] Facility:[facility] Start: 08-02-2024 End: 08-15-2024 Evaluation and [...] Kameron Caruso MD Work Phone: [facility] [place] Comment on above: medication not on cu rrent med list Start: 06-26-2024 End: 06-26-2024 Office outpatient visit 25 minutes Emma Sotomayor APRN.CNP Work Phone: [facility] [place] Comment on above: Atrial fibrillation, unspecified type (HCC) (Primary Dx); Hypothyroidism, unspecified type; Need for malaria prophylaxis Start: 06-26-2024 End: 06-26-2024 ambulatory EMMA SOTOMAYOR Facility:[facility] Start: 06-25-2024 ambulatory KAMERON CARUSO [facility] ity:[facility] Start: 06-24-2024 End: 06-24-2024 Telephone encounter Kameron Caruso MD Work Phone: [facility] [place] Comment on above: Patient Update Start: 06-11-2024 End: 06-11-2024 Telephone encounter Kameron Caruso MD Work Phone: [facility] [place] Comment on above: Results Start: 06-11-2024 End: 06-11-2024 ambulatory KAMERON CARUSO Facility:[facility] Start: 06-10-2024 End: 06-11-2024 Telephone encounter Kameron Caruso MD Work Phone: [facility] [place] Comment on above: Medication Problem Start: 05-31-2024 End: 05-31-2024 ambulatory KAMERON CARUSO Facility:[facility] Start: 05-31-2024 End: 05-31-2024 Patient encounter procedure Kameron Caruso MD Work Phone: [facility] [place] Comment on above: Essential hypertensi on, benign (Primary Dx); Type 2 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, without long-term current use of insulin (HCC); Chronic kidney disease, stage 3a ([facility]); Hyperlipidemia, unspecified hyperlipidemia type; Hypothyroidism, unspecified type; Edema of left lower leg; Memory loss; Urinary incontinence, unspecified type; Irregular heart beat; Atrial fibrillation, unspecified type (HCC) Start: 05-23-2024 End: 05-23-2024 ambulatory KAMERON CARUSO Facility:[facility] Start: 11-28-2023 End: 11-28-2023 ambulatory KAMERON CARUSO Facility:[facility] Start: 11-28-2023 End: 11-28-2023 Patient encounter procedure Kameron Caruso MD Work Phone: [facility] [place] Comment on above: 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, unspecified CKD stage, 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 (HCC) (Primary Dx); Essential hypertension, benign; Chronic kidney disease, stage 3a (HCC); Hyperlipidemia, unspecified hyperlipidemia type; Hypothyroidism, unspecified type; Edema of left lower leg; Memory loss; Type 2 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, without long-term current use of insulin (HCC) Start: 11-27-2023 End: 11-27-2023 ambulatory [facility] Facility:[facility] Start: 10-10-2023 End: 10-10-2023 ambulatory [facility] Facility:[facility] Start: 10-10-2023 End: 10-10-2023 Office outpatient visit 25 minutes David Dupree APRN.CHILD CARE SPECIALIST Work Phone: [facility] Comment on above: Rash (Primary Dx) Start: 09-29-2023 End: 09-29-2023 ambulatory [facility] Facility:[facility] Start: 09-29-2023 End: 09-29-2023 Patient encounter procedure Radha Levine APRN.CHILD CARE SPECIALIST Work Phone: [facility] Comment on above: Allergic contact lexi matitis due to plant (Primary Dx) Start: 09-19-2023 Refill Kameron nixon MD Work Phone: [facility] Comment on above: Refill Request Start: 04-08-2023 Telephone encounter Kameron bucio MD Work Phone: [address] [place] [address] Comment on above: Refill Request Start: 11-25-2022 Telephone encounter Kameron bucio MD Work Phone: [facility] Comment on above: Patient Question Start: 05-27-2022 End: 05-27-2022 Patient encounter procedure Kameron Caruso MD Work Phone: [facility] Comment on above: Essential hypertensi on, benign (Primary Dx); Hypothyroidism, unspecified type; Type 2 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, without long-term current use of insulin (HCC); Hyperlipidemia, unspecified hyperlipidemia type; Chronic kidney disease, stage 3a (HCC); Edema of left lower leg; Wellness examination Start: 05-27-2022 End: 05-27-2022 Patient encounter status Kameron Caruso MD Work Phone: [facility] [place] Start: 04-11-2022 Refill Kameron nixon MD Work Phone: [facility] [place] Comment on above: Refill Request Start: 03-02-2022 ambulatory Kameron nixon MD Work Phone: [facility] [place] Comment on above: Back Pain Start: 03-02-2022 End: 03-02-2022 Patient encounter procedure Emma Canalesderick [employer] H[employer] DRIVER.CHILD CARE SPECIALIST Work Phone: [facility] [place] Comment on above: Acute midline low ba ck pain without sciatica (Primary Dx) Start: 01-11-2022 Refill Mj ORTIZ RN.CHILD CARE SPECIALIST Work Phone: [facility] [place] Comment on above: Refill Request Start: 01-11-2022 Refill Kameron nixon MD Work Phone: [facility] [place] Comment on above: Refill Request Start: 12-16-2021 Telephone encounter Kameron bucio MD Work Phone: [facility] Comment on above: Diabetic Testing Sup plies Start: 11-23-2021 End: 11-23-2021 Refill Kameron Caruso MD Work Phone: [facility] [place] Comment on above: 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, unspecified CKD stage, 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 (HCC) (Primary Dx); Essential hypertension, benign; Hyperlipidemia, unspecified hyperlipidemia type; Stage 3b chronic kidney disease (HCC); Hypothyroidism, unspecified type; Memory loss Start: 10-14-2021 Refill Kameron nixon MD Work Phone: [facility] [place] Comment on above: Refill Request Start: 09-27-2021 Telephone encounter Kameron bucio MD Work Phone: [facility] [place] Comment on above: information requeste d/rxs needed Start: 09-13-2021 Telephone encounter Kameron bucio MD Work Phone: [facility] Comment on above: Patient Question; Me dication [...] Date Procedure Procedure Detail Performing Clinician Start: 02-11-2025 Mean corpuscular hem oglobin concentration determination Dr. Kameron Caruso MD Work Phone: Start: 02-11-[address] Tatiana Caruso MD Work Phone: Start: 02-11-2025 Nucleated red blood cell count procedure Dr. Kameron Caruso MD Work Phone: Start: 02-11-2025 Platelet mean volume determination Dr. Kameron Caruso MD Work Phone: Start: 02-04-2025 Mean corpuscular hem oglobin concentration determination Dr. Kameron Caruso MD Work Phone: Start: 02-04-[address] Tatiana Caruso MD Work Phone: Start: 02-04-2025 Nucleated red blood cell count procedure Dr. Kameron Caruso MD Work Phone: Start: 02-04-2025 Platelet mean volume determination Dr. Kameron Caruso MD Work Phone: Start: 01-28-2025 Mean corpuscular hem oglobin concentration determination Dr. Kameron Caruso MD Work Phone: Start: 01-28-[address] Tatiana Caruso MD Work Phone: Start: 01-28-2025 Nucleated red blood cell count procedure Dr. Kameron Caruso MD Work Phone: Start: 01-28-2025 Platelet mean volume determination Dr. Kameron Caruso MD Work Phone: Start: 01-21-2025 Mean corpuscular hem oglobin concentration determination Dr. Kameron Caruso MD Work Phone: Start: 01-21-[address] Tatiana Caruso MD Work Phone: Start: 01-21-2025 Nucleated red blood cell count procedure Dr. Kameron Caruso MD Work Phone: Start: 01-21-2025 Platelet mean volume determination Dr. Kameron Caruso MD Work Phone: Start: 01-14-2025 Mean corpuscular hem oglobin concentration determination Dr. Kameron Caruso MD Work Phone: Start: 01-14-[address] Tatiana Caruso MD Work Phone: Start: 01-14-2025 Nucleated red blood cell count procedure Dr. Kameron Caruso MD Work Phone: Start: 01-14-2025 Platelet mean volume determination Dr. Kameron Caruso MD Work Phone: Start: 01-07-2025 Blood count smear mc rscp w/mnl difrntl wbc count Dr. Kameron Caruso MD Work Phone: Start: 01-07-2025 Mean corpuscular hem oglobin concentration determination Dr. Kameron Caruso MD Work Phone: Start: 01-07-[address] Tatiana Caruso MD Work Phone: Start: 01-07-2025 Nucleated red blood cell count procedure Dr. Kameron Caruso MD Work Phone: Start: 01-07-2025 Platelet mean volume determination Dr. Kameron Caruso MD Work Phone: Start: 12-31-2024 Blood count smear mc rscp w/mnl difrntl wbc count Dr. Kameron Caruso MD Work Phone: Start: 12-31-2024 Mean corpuscular hem oglobin concentration determination Dr. Kameron Caruso MD Work Phone: Start: 12-31-[address] Tatiana Caruso MD Work Phone: Start: 12-31-2024 Nucleated red blood cell count procedure Dr. Kameron Caruso MD Work Phone: Start: 12-31-2024 Platelet mean volume determination Dr. Kameron Caruso MD Work Phone: Start: 12-24-2024 Blood count smear mc rscp w/mnl difrntl wbc count Dr. Kameron Caruso MD Work Phone: Start: 12-24-2024 Mean corpuscular hem oglobin concentration determination Dr. Kameron Carsuo MD Work Phone: Start: 12-24-[address] Tatiana Caruso MD Work Phone: Start: 12-24-2024 Nucleated red blood cell count procedure Dr. Kameron Caruso MD Work Phone: Start: 12-24-2024 Platelet mean volume determination Dr. Kameron Caruso MD Work Phone: Start: 12-17-2024 Blood count smear mc rscp w/mnl difrntl wbc count Dr. Kameron Caruso MD Work Phone: Start: 12-17-2024 Mean corpuscular hem oglobin concentration determination Dr. Kameron Caruso MD Work Phone: Start: 12-17-[address] Tatiana Caruso MD Work Phone: Start: 12-17-2024 Nucleated red blood cell count procedure Dr. Kameron Caruso MD Work Phone: Start: 12-17-2024 Platelet mean volume determination Dr. Kameron Caruso MD Work Phone: Start: 12-10-2024 Blood count smear mc rscp w/mnl difrntl wbc count Dr. Kameron Caruso MD Work Phone: Start: 12-10-2024 Mean corpuscular hem oglobin concentration determination Dr. Kameron Caruso MD Work Phone: Start: 12-10-[address] Tatiana Caruso MD Work Phone: Start: 12-10-2024 Nucleated red blood cell count procedure Dr. Kameron Caruso MD Work Phone: Start: 12-10-2024 Platelet mean volume determination Dr. Kameron Caruso MD Work Phone: Start: 12-03-2024 Blood count smear mc rscp w/mnl difrntl wbc count Dr. Kameron Caruso MD Work Phone: Start: 12-03-2024 Mean corpuscular hem oglobin concentration determination Dr. Kameron Caruso MD Work Phone: Start: 12-03-[address] Tatiana Caruso MD Work Phone: Start: 12-03-2024 Nucleated red blood cell count procedure Dr. Kameron Caruso MD Work Phone: Start: 12-03-2024 Platelet mean volume determination Dr. Kameron Caruso MD Work Phone: Start: 11-26-2024 Blood count smear mc rscp w/mnl difrntl wbc count Dr. Kameron Caruso MD Work Phone: Start: 11-26-2024 Mean corpuscular hem oglobin concentration determination Dr. Kameron Caruso MD Work Phone: Start: 11-26-[address] Tatiana Caruso MD Work Phone: Start: 11-26-2024 Nucleated [...] Kameron Caruso MD Work Phone: Start: 11-19-[address] Tatiana Caruso MD Work Phone: Start: 11-19-2024 Nucleated red blood cell count procedure Dr. Kameron Caruso MD Work Phone: Start: 11-19-2024 Platelet mean volume determination Dr. Kameron Caruso MD Work Phone: Start: 11-12-2024 Blood count smear mc rscp w/mnl difrntl wbc count Dr. Kameron Caruso MD Work Phone: Start: 11-12-2024 Mean corpuscular hem oglobin concentration determination Dr. Kameron Caruso MD Work Phone: Start: 11-12-[address] Tatiana Caruso MD Work Phone: Start: 11-12-2024 Nucleated red blood cell count procedure Dr. Kameron Caruso MD Work Phone: Start: 11-12-2024 Platelet mean volume determination Dr. Kameron Caruso MD Work Phone: Start: 11-05-2024 Blood count smear mc rscp w/mnl difrntl wbc count Dr. Kameron Caruso MD Work Phone: Start: 11-05-2024 Mean corpuscular hem oglobin concentration determination Dr. Kameron Caruso MD Work Phone: Start: 11-05-[address] Tatiana Caruso MD Work Phone: Start: 11-05-2024 Nucleated red blood cell count procedure Dr. Kameron Caruso MD Work Phone: Start: 11-05-2024 Platelet mean volume determination Dr. Kameron Caruso MD Work Phone: Start: 10-29-2024 Blood count smear mc rscp w/mnl difrntl wbc count Dr. Kameron Caruso MD Work Phone: Start: 10-29-2024 Mean corpuscular hem oglobin concentration determination Dr. Kameron Caruso MD Work Phone: Start: 10-29-[address] Tatiana Caruso MD Work Phone: Start: 10-29-2024 Nucleated [...] Kameron Caruso MD Work Phone: Start: 10-22-[address] Tatiana Caruso MD Work Phone: Start: 10-22-2024 Nucleated [...] 08-15-2024 Assay of magnesium Abdoule scott Mccoy [employer]IVER-CHILD CARE SPECIALIST Work Phone: Start: 08-15-2024 Glucose measurement, blood Christos Voss MD Work Phone: Start: 08-14-2024 Glucose measurement, blood Christos Voss MD Work Phone: Start: 08-14-2024 Glucose measurement, blood Christos Voss MD Work Phone: Start: 08-14-2024 Glucose measurement, blood Christos Voss MD Work Phone: Start: 08-14-2024 Assay of magnesium Nase rin M Nadine [employer] Work Phone: Start: 08-13-2024 Glucose measurement, blood Christos Voss MD Work Phone: Start: 08-13-2024 Glucose measurement, blood Christos Voss MD Work Phone: Start: 08-13-2024 Glucose measurement, blood Christos Voss MD Work Phone: Start: 08-13-2024 Glucose measurement, blood Felicity Castellano MD Work Phone: Start: 08-13-2024 Assay of magnesium Nase rin M Nadine [employer]CHILD [employer]IST Work Phone: Start: 08-13-2024 Glucose measurement, blood Felicity Castellano MD Work Phone: Start: 08-12-2024 Glucose measurement, blood Felicity Castellano MD Work Phone: Start: 08-12-2024 Glucose measurement, blood Felicity Castellano MD Work Phone: Start: 08-12-2024 Glucose measurement, blood Felicity Castellano MD Work Phone: Start: 08-12-2024 Assay of magnesium Nase rin M Nadine [employer] Work Phone: Start: 08-12-2024 Glucose measurement, blood Felicity Castellano MD Work Phone: Start: 08-11-2024 Glucose measurement, blood Felicity Castellano MD Work Phone: Start: 08-11-2024 Glucose measurement, blood Felicity Castellano MD Work Phone: Start: 08-11-2024 Glucose measurement, blood Felicity Castellano MD Work Phone: Start: 08-11-2024 Assay of magnesium Abram Hwang Nadine [employer]CHILD [employer]IST Work Phone: Start: 08-10-2024 Glucose measurement, blood Felicity aCstellano MD Work Phone: Start: 08-10-2024 Glucose measurement, blood Felicity Castellano MD Work Phone: Start: 08-10-2024 End: 08-10-2024 Culture bacterial blood aerobic w/id isolates Radha Gr [employer]IST Work Phone: Start: 08-10-2024 Glucose measurement, blood Felicity Castellano MD Work Phone: Start: 08-10-2024 End: 08-10-2024 Glucose measurement, blood Felicity Castellano MD Work Phone: Start: 08-10-2024 Glucose measurement, blood Felicity Castellano MD Work Phone: Start: 08-10-2024 Assay of magnesium Abram Schulteameh [employer]IST Work Phone: Start: 08-10-2024 Glucose measurement, blood [...] 08-09-2024 Assay of magnesium Abram Hwang Nadine [employer]IST Work Phone: Start: 08-09-2024 Glucose measurement, blood Felicity Castellano MD Work Phone: Start: 08-08-2024 Glucose measurement, blood Felicity Castellano MD Work Phone: Start: 08-08-2024 Culture bct isol&prs mptv id isolate ea urine Bella Cardenas [employer]ILD [employer]IST Work Phone: Start: 08-08-2024 EXTRA MICRO Bella Hwang Ma rtforrest [employer]IST Work Phone: Start: 08-08-2024 URINALYSIS REFLEX TO CULTURE Bella Cardenas [employer]IST Work Phone: Start: 08-08-2024 Ct head/brain w/o co ntrast material Bella Cardenas [employer]IST Work Phone: Start: 08-08-2024 Glucose measurement, blood Felicity Castellano MD Work Phone: Start: 08-08-2024 End: 08-08-2024 Glucose measurement, blood Felicity Castellano MD Work Phone: Start: 08-08-2024 Assay of magnesium Abram Schulteameh [employer]IST Work Phone: Start: 08-07-2024 Glucose measurement, blood Felicity Castellano MD Work Phone: Start: 08-07-2024 Glucose measurement, blood Felicity Castellano MD Work Phone: Start: 08-07-2024 Glucose measurement, blood Felicity Castellano MD Work Phone: Start: 08-07-2024 Glucose measurement, blood Felicity Castellano MD Work Phone: Start: 08-06-2024 Glucose measurement, blood Felicity Castellano MD Work Phone: Start: 08-06-2024 Assay of magnesium Nase rin M Nadine [employer]ILD [employer]IST Work Phone: Start: 08-06-2024 Glucose measurement, blood Felicity Castellano MD Work Phone: Start: 08-06-2024 Glucose measurement, blood Felicity Castellano MD Work Phone: Start: 08-06-2024 Radiologic exam swal low function contrast study Shanan Russ [employer] Work Phone: Start: 08-06-2024 SPEECH MODIFIED KEAGAN UM SWALLOW Shanna Russ [employer]CHILD [employer]IST Work Phone: Start: 08-06-2024 Glucose measurement, blood Felicity Castellano MD Work Phone: Start: 08-05-2024 Glucose measurement, blood Felicity Castellano MD Work Phone: Start: 08-05-2024 Assay of magnesium Nase rin M Nadine [employer]CHILD [employer]IST Work Phone: Start: 08-05-2024 Glucose measurement, blood Felicity Castellano MD Work Phone: Start: 08-05-2024 Glucose measurement, blood Felicity Castellano MD Work Phone: Start: 08-05-2024 Echo tthrc r-t 2d w/wom-mode compl spec&colr d Taran Traore [employer]CHILD [employer]IST Work Phone: Start: 08-05-2024 Glucose measurement, blood Felicity Castellano MD Work Phone: Start: 08-05-2024 Assay of magnesium Nase rin M Nadine [employer]CHILD CARE [employer]IST Work Phone: Start: 08-05-2024 Glucose measurement, blood [...] 08-04-2024 Assay of magnesium Abram scott Mccoy [employer]ILD [employer]IST Work Phone: Start: 08-04-2024 Glucose measurement, blood Richard Mejia MD Work Phone: Start: 08-03-2024 Ct head/brain w/o co ntrast material Shaila Méndez PA-C Start: 08-03-2024 Sodium serum plasma or whole blood Shanna Denise MD Work Phone: Start: 08-03-2024 Glucose measurement, blood Richard Mejia MD Work Phone: Start: 08-03-2024 Radiologic exam abdo men 1 view Balbir Mccoy [employer]ILD [employer]IST Work Phone: Start: 08-03-2024 Glucose measurement, blood [...] brain brain stem w/o contrast material Taran A eLón [employer]CHILD [employer]IST Work Phone: Start: 08-03-2024 ABORH TYPE RECONFIRMATION Cindy CORDOVA Work Phone: Start: 08-03-2024 Assay of magnesium Abram Mccoy [employer]CHILD [employer]IST Work Phone: Start: 08-02-2024 Glucose measurement, blood [...] Performed By: #### X M #### [facility] ([facility]) [facility] [address] [place] [address] Start: 08-02-2024 EXTRA MICRO Taran Robb León [employer]CHILD [employer]IST Work Phone: Start: 08-02-2024 Hemoglobin glycosylated a1c Balbir Mccoy [employer]CHILD [employer]IST Work Phone: Start: 08-02-2024 Hepatic function panel Balbir Mccoy [employer]CHILD CARE [employer]IST Work Phone: Start: 08-02-2024 Iadna s aureus ampli fied probe tq Balbir Mccoy [facility] Work Phone: Start: 08-02-2024 URINALYSIS REFLEX TO CULTURE Taran Traore [facility] Work Phone: Start: 08-02-2024 Urnls dip stick/tabl et reagent auto microscopy Taran Traore [facility] Work Phone: Start: 08-02-2024 SARS-CoV-2, Influenz [...] Start: 11-28-2023 Adult depression scr eening assessment Kameorn Caruso MD Work Phone: Start: 11-05-2020 Adult depression scr eening assessment Kameron Caruso MD Work Phone: Start: 10-16-2019 [facility] ENDOSCOPY REPORT 3m Scanning Blepharoplasty SILVINO Garza DO Breast biopsy and re lated procedures SILVINO AH DO section SILVINO MARTINEZ DO Comment on above: X2 Colonoscopy SILVINO HA DO Extraction of cataract SILVINO HA DO Open reduction of fr acture with internal fixation SILVINO HA DO Comment on above: LEFT ARM Plan of Treatment Date Care Activity Detail Author Start: 08-15-2025 Complete blood count Hemoglobin/Hematocrit [facility] Start: 08-15-2025 Creatinine measurement Serum Creatinine [facility] Start: 08-02-2025 Thyroid stimulating hormone measurement [facility] Start: 06-26-2025 Annual PCP Team Chronic Disease Visit Annual PCP Team Chronic Disease Visit [facility] Start: 05-31-2025 Annual PCP Team Chronic Disease Visit Annual PCP Team Chronic Disease Visit [facility] Start: 05-31-2025 Covid-19 Vaccine ( season) Covid-19 Vaccine ( season) [facility] Comment on above: Postponed from 01/14/2024 (Declined at t his time) Start: 05-31-2025 Pneumococcal Vaccine: 50+ (2 of 2 - PPSV23) Pneumococcal Vaccine: 50+ (2 of 2 - PPSV23) [facility] Comment on above: Postponed from 12/19/2019 (Declined at t his time) Start: 05-23-2025 Creatinine measurement Serum Creatinine [facility] Start: 05-23-2025 Hepatitis B screening Urine Albumin:Creatinine Ratio [facility] Start: 05-23-2025 Hepatitis B surface antibody level LDL Cholesterol [facility] Start: 02-02-2025 Hemoglobin A1c measurement HbA1C [facility] Start: 01-13-2025 Influenza vaccination [facility] Start: 01-03-2025 Glaucoma screening Dilated Retinal Exam [facility] Start: 12-24-2024 End: 12-24-2024 Patient encounter procedure 12/24/2024 9:20 AM EDT Office Visit Family [facility] [address] [place] [address] Kameron Caruso MD [address] [place] [address] 6 month follow up Family [facility] Comment on above: 6 month follow up Start: 11-28-2024 End: 02-27-2025 Comprehensive metabolic 2000 panel - Serum or Plasma COMPREHENSIVE METABOLIC PANEL Lab Routine Essential hypertension, benign Chronic kidney disease, stage 3a (HCC) Hyperlipidemia, unspecified hyperlipidemia type Expected: 11/28/2024 (Approximate), Expires: 02/27/2025 [facility] Work Phone: Comment on above: Expected: 11/28/2024 (Approximate), Expi res: 02/27/2025 Start: 11-28-2024 End: 02-27-2025 Hemoglobin A1c in Blood HEMOGLOBIN A1C Lab Routine Expected: 11/28/2024 (Approximate), Expires: 02/27/2025 [facility] Comment on above: Expected: 11/28/2024 (Approximate), Expi res: 02/27/2025 Start: 11-28-2024 End: 02-27-2025 Lipid 1996 panel - Serum or Plasma LIPID PANEL BASIC Lab Routine Essential hypertension, benign Hyperlipidemia, unspecified hyperlipidemia type Expected: 11/28/2024 (Approximate), Expires: 02/27/2025 [facility] Comment on above: Expected: 11/28/2024 (Approximate), Expi res: 02/27/2025 Start: 11-28-2024 End: 02-27-2025 Thyrotropin [Units/volume] in Serum or Plasma THYROID STIMULATING HORMONE Lab Routine Hypothyroidism, unspecified type Expected: 11/28/2024 (Approximate), Expires: 02/27/2025 [facility] Comment on above: Expected: 11/28/2024 (Approximate), Expi res: 02/27/2025 Start: 11-27-2024 Annual PCP Team Chronic Disease Visit Annual PCP Team Chronic Disease Visit [facility] Start: 11-27-2024 Anxiety Screening Anxiety Screening [facility] Start: 11-27-2024 Depression Screening Depression Screening [facility] Start: 11-27-2024 RSV Vaccine (1 - 1-dose 60+ series) RSV Vaccine (1 - 1-dose 60+ series) [facility] Comment on above: Postponed from 2004 (Declined at t his time) Start: 11-27-2024 RSV Vaccine (1 - 1-dose 75+ series) RSV Vaccine (1 - 1-dose 75+ series) [facility] Comment on above: Postponed from 10/26/2019 (Declined at t his time) Start: 11-26-2024 Creatinine measurement Serum Creatinine [facility] Start: 11-26-2024 Hepatitis B surface antibody level LDL Cholesterol [facility] Start: 11-20-2024 Hemoglobin A1c measurement HbA1C [facility] Start: 11-11-2024 Influenza vaccination Influenza Vaccine (#1) [facility] Comment on above: Postponed from 01/14/2024 (Declined at t his time) Start: 10-08-2024 End: 10-08-2024 ambulatory [facility] Start: 10-02-2024 Evaluation of diagnostic study results 12 Lead EKG performed by B[facility] Start: 08-02-2024 [facility] Start: 08-02-2024 SARS-CoV-2, Influenza & RSV (PCR) SARS-CoV-2, Influenza & RSV (PCR) [facility] Start: 08-02-2024 End: 08-02-2024 [facility] Start: 08-02-2024 Electrocardiographic procedure [facility] Start: 08-02-2024 Oxygen therapy [facility] Start: 07-24-2024 End: 10-23-2024 Thyrotropin [Units/volume] in Serum or Plasma THYROID STIMULATING HORMONE Lab Routine Hypothyroidism, unspecified type Expected: 07/24/2024, Expires: 10/23/2024 [facility] Work Phone: Comment on above: Expected: 07/24/2024, Expires: Start: 07-24-2024 End: 10-23-2024 Thyroxine (T4) free [Mass/volume] in Serum or Plasma T4 FREE/FREE THYROXINE Lab Routine Hypothyroidism, unspecified type Expected: 07/24/2024, Expires: 10/23/2024 [facility] Comment on above: Expected: 07/24/2024, Expires: 5 Start: 06-25-2024 End: 06-25-2024 Patient encounter procedure 06/25/2024 9:40 AM EST Office Visit [facility] [address] [place], [place] [id number] Kameron Caruso MD [address] [place], [place] [id number] 1 mo f/u, new dx afib. [facility] Comment on above: 1 mo f/u, new dx afib. Start: 06-11-2024 End: 06-11-2024 Patient encounter procedure 06/11/2024 8:50 AM EST Office Visit Cardiology [address] [place] [address] Atrial fibrillation, unspecified type (HCC) [I48.91] Cardiology Comment on above: Atrial fibrillation, unspecified type (H CC) [I48.91] Start: 05-30-2024 Annual PCP Team Chronic Disease Visit Annual PCP Team Chronic Disease Visit [facility] Start: 05-30-2024 End: 08-29-2024 Comprehensive metabolic 2000 panel - Serum or Plasma COMPREHENSIVE METABOLIC PANEL Lab Routine Type 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, unspecified CKD stage, unspecified whether skilled nursing insulin use (HCC) Essential hypertension, benign Chronic kidney disease, stage 3a (HCC) Hyperlipidemia, unspecified hyperlipidemia type Expected: 05/30/2024 (Approximate), Expires: 08/29/2024 [facility] Work Phone: Comment on above: Expected: 05/30/2024 (Approximate), Expi res: 08/29/2024 Start: 05-30-2024 Covid-19 Vaccine () Covid-19 Vaccine () [facility] Comment on above: Postponed from 01/13/2023 (Declined at t his time) Start: 05-30-2024 End: 08-29-2024 Hemoglobin A1c in Blood HEMOGLOBIN A1C Lab Routine Type 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, unspecified CKD stage, unspecified whether skilled nursing insulin use (HCC) Expected: 05/30/2024 (Approximate), Expires: 08/29/2024 [facility] Comment on above: Expected: 05/30/2024 (Approximate), Expi res: 08/29/2024 Start: 05-30-2024 Hepatitis C screening Hepatitis C Screening [facility] Comment on above: Postponed from 1962 (Declined at t his time) Start: 05-30-2024 End: 08-29-2024 Lipid 1996 panel - Serum or Plasma LIPID PANEL BASIC Lab Routine Type 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, unspecified CKD stage, 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 (HCC) Essential hypertension, benign Hyperlipidemia, unspecified hyperlipidemia type Expected: 05/30/2024 (Approximate), Expires: 08/29/2024 [facility] Comment on above: Expected: 05/30/2024 (Approximate), Expi res: 08/29/2024 Start: 05-30-2024 End: 08-29-2024 Microalbumin/Creatinine [Mass Ratio] in Urine ALBUMIN/CREATININE RATIO, URINE Lab Routine Type 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, unspecified CKD stage, unspecified whether skilled nursing insulin use (HCC) Expected: 05/30/2024 (Approximate), Expires: 08/29/2024 [facility] Comment on above: Expected: 05/30/2024 (Approximate), Expi res: 08/29/2024 Start: 05-30-2024 Pneumococcal Vaccine: 65+ (2 of 2 - PPSV23 or PCV20) Pneumococcal Vaccine: 65+ (2 of 2 - PPSV23 or PCV20) [facility] Comment on above: Postponed from 12/19/2019 (Declined at t his time) Start: 05-30-2024 End: 08-29-2024 Thyrotropin [Units/volume] in Serum or Plasma THYROID STIMULATING HORMONE Lab Routine Hypothyroidism, unspecified type Expected: 05/30/2024 (Approximate), Expires: 08/29/2024 [facility] Comment on above: Expected: 05/30/2024 (Approximate), Expi res: 08/29/2024 Start: 05-30-2024 End: 05-30-2024 Patient encounter procedure 05/30/2024 9:40 AM EST Office Visit [facility] [address] [place], [place] [id number] Kameron Caruso MD [address] [place], [place] [id number] 6 mo f/u [facility] Comment on above: 6 mo f/u Start: 05-29-2024 Hemoglobin A1c measurement HbA1C [facility] Start: 05-16-2024 Creatinine measurement Serum Creatinine [facility] Start: 05-16-2024 Hepatitis B screening Urine Albumin:Creatinine Ratio [facility] Start: 05-16-2024 Hepatitis B surface antibody level LDL Cholesterol [facility] Start: 05-15-2024 Advance Directive Discussion Advance Directive Discussion [facility] Start: 01-14-2024 Influenza vaccination [facility] Start: 01-14-2024 [facility] Start: 01-04-2024 Glaucoma screening Dilated Retinal Exam [facility] Start: 01-04-2024 Hepatitis C antibody, confirmatory test Dilated Retinal Exam [facility] Start: 11-28-2023 End: 11-28-2023 Patient encounter procedure 11/28/2023 9:40 AM EDT Office Visit Family [facility] [address] [place], [place] [id number] Kameron Caruso MD [address] [place] [address] 6 mo follow up Family [facility] Comment on above: 6 mo follow up Start: 11-26-2023 ANNUAL PCP TEAM CHRONIC DISEASE VISIT ANNUAL PCP TEAM CHRONIC DISEASE VISIT [facility] Start: 11-26-2023 BP CONTROLLED (<130/80) BP CONTROLLED (<130/80) [facility] Start: 11-23-2023 Complete blood count Hemoglobin/Hematocrit [facility] Start: 11-23-2023 HEMOGLOBIN/HEMATOCRIT HEMOGLOBIN/HEMATOCRIT [facility] Start: 11-23-2023 Hepatitis B surface antibody level LDL CHOLESTEROL [facility] Start: 11-23-2023 SERUM CREATININE SERUM CREATININE [facility] Start: 11-14-2023 [facility] Start: 05-27-2023 ANNUAL PCP TEAM CHRONIC DISEASE VISIT ANNUAL PCP TEAM CHRONIC DISEASE VISIT [facility] Start: 05-27-2023 COVID-19 VACCINE (2 - Booster for Alyssa series) COVID-19 VACCINE (2 - Booster for Alyssa series) [facility] Comment on above: Postponed from 09/17/2020 (Declined at t his time) Start: 05-27-2023 HEPATITIS C SCREENING HEPATITIS C SCREENING [facility] Comment on above: Postponed from 1962 (Declined at t his time) Start: 05-25-2023 Hemoglobin A1c/Hemoglobin.total in Blood HBA1C [facility] Start: 05-19-2023 HEMOGLOBIN/HEMATOCRIT HEMOGLOBIN/HEMATOCRIT [facility] Start: 05-19-2023 Hepatitis B surface antibody level LDL CHOLESTEROL [facility] Start: 05-19-2023 SERUM CREATININE SERUM CREATININE [facility] Start: 05-15-2023 Advance Directive Discussion Advance Directive Discussion [facility] Start: 05-15-2023 Behavioral Health Screening Behavioral Health Screening [facility] Start: 03-02-2023 ANNUAL PCP TEAM CHRONIC DISEASE VISIT ANNUAL PCP TEAM CHRONIC DISEASE VISIT [facility] Start: 01-13-2023 Covid-19 Vaccine ( season) Covid-19 Vaccine ( season) [facility] Start: 01-13-2023 Influenza vaccination [facility] Start: 12-27-2022 Hepatitis C antibody, confirmatory test DILATED RETINAL EXAM [facility] Start: 11-24-2022 End: 01-24-2023 CBC panel - Blood by Automated count CBC Lab Routine Essential hypertension, benign Hypothyroidism, unspecified type Expected: 11/24/2022 (Approximate), Expires: 01/24/2023 [facility] Work Phone: Comment on above: Expected: 11/24/2022 (Approximate), Expi res: 01/24/2023 Start: 11-24-2022 End: 01-24-2023 Comprehensive metabolic 2000 panel - Serum or Plasma COMP METABOLIC PANEL Lab Routine Essential hypertension, benign Type 2 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, without long-term current use of insulin (HCC) Hyperlipidemia, unspecified hyperlipidemia type Expected: 11/24/2022 (Approximate), Expires: 01/24/2023 [facility] Work Phone: Comment on above: Expected: 11/24/2022 (Approximate), Expi res: 01/24/2023 Start: 11-24-2022 End: 01-24-2023 Hemoglobin A1c in Blood HGB A1C Lab Routine Type 2 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, without long-term current use of insulin (HCC) Expected: 11/24/2022 (Approximate), Expires: 01/24/2023 [facility] Work Phone: Comment on above: Expected: 11/24/2022 (Approximate), Expi res: 01/24/2023 Start: 11-24-2022 End: 01-24-2023 Lipid 1996 panel - Serum or Plasma LIPID PANEL BASIC Lab Routine Essential hypertension, benign Type 2 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, without long-term current use of insulin (HCC) Hyperlipidemia, unspecified hyperlipidemia type Expected: 11/24/2022 (Approximate), Expires: 01/24/2023 [facility] Work Phone: Comment on above: Expected: 11/24/2022 (Approximate), Expi res: 01/24/2023 Start: 11-24-2022 End: 01-24-2023 Thyrotropin [Units/volume] in Serum or Plasma TSH BLD Lab Routine Hypothyroidism, unspecified type Expected: 11/24/2022 (Approximate), Expires: 01/24/2023 [facility] Work Phone: Comment on above: Expected: 11/24/2022 (Approximate), Expi res: 01/24/2023 Start: 11-23-2022 3 comp foot exam completed DIABETIC FOOT EXAM [facility] Start: 11-23-2022 ANNUAL PCP TEAM CHRONIC DISEASE VISIT ANNUAL PCP TEAM CHRONIC DISEASE VISIT [facility] Start: 11-23-2022 Diabetic foot examination Diabetic Foot Exam [facility] Start: 11-20-2022 Hepatitis B screening URINE ALBUMIN:CREATININE RATIO [facility] Start: 11-20-2022 Hepatitis B surface antibody level LDL CHOLESTEROL [facility] Start: 11-20-2022 SERUM CREATININE SERUM CREATININE [facility] Start: 11-16-2022 Hemoglobin A1c/Hemoglobin.total in Blood HBA1C [facility] Start: 11-11-2022 Influenza vaccination INFLUENZA (#1) [facility] Comment on above: Postponed from 01/13/2022 (Declined at t his time) Start: 05-26-2022 End: 07-26-2022 CBC panel - Blood by Automated count CBC Lab Routine Essential hypertension, benign Stage 3b chronic kidney disease (HCC) Expected: 05/26/2022 (Approximate), Expires: 07/26/2022 [facility] Work Phone: Comment on above: Expected: [...] Expected: 05/26/2022 (Approximate), Expires: 07/26/2022 [facility] Work Phone: Comment on above: Expected: 05/26/2022 (Approximate), Expi res: 07/26/2022 Start: 05-26-2022 End: 07-26-2022 Hemoglobin A1c in Blood HGB A1C Lab Routine Type 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, unspecified CKD stage, unspecified whether skilled nursing insulin use (HCC) Expected: 05/26/2022 (Approximate), Expires: 07/26/2022 [facility] Work Phone: Comment on above: Expected: 05/26/2022 (Approximate), Expi res: 07/26/2022 Start: 05-26-2022 End: 07-26-2022 Lipid 1996 panel - Serum or Plasma LIPID PANEL BASIC Lab Routine Essential hypertension, benign Hyperlipidemia, unspecified hyperlipidemia type Expected: 05/26/2022 (Approximate), Expires: 07/26/2022 [facility] Work Phone: Comment on above: Expected: 05/26/2022 (Approximate), Expi res: 07/26/2022 Start: 05-26-2022 End: 07-26-2022 Thyrotropin [Units/volume] in Serum or Plasma TSH BLD Lab Routine Hypothyroidism, unspecified type Expected: 05/26/2022 (Approximate), Expires: 07/26/2022 [facility] Work Phone: Comment on above: Expected: 05/26/2022 (Approximate), Expi res: 07/26/2022 Start: 05-23-2022 Hemoglobin A1c/Hemoglobin.total in Blood HBA1C [facility] Start: 05-18-2022 ANNUAL PCP TEAM CHRONIC DISEASE VISIT ANNUAL PCP TEAM CHRONIC DISEASE VISIT [facility] Start: 05-17-2022 Hepatitis B surface antibody level LDL CHOLESTEROL [facility] Start: 05-17-2022 SERUM CREATININE SERUM CREATININE [facility] Start: 05-15-2022 ADVANCE DIRECTIVE DISCUSSION ADVANCE DIRECTIVE DISCUSSION [facility] Start: 01-13-2022 Influenza vaccination [facility] Start: 01-11-2022 Hepatitis C antibody, confirmatory test DILATED RETINAL EXAM [facility] Start: 11-14-2021 Hemoglobin A1c/Hemoglobin.total in Blood HBA1C [facility] Start: 11-06-2021 Screening for malignant neoplasm of breast [facility] Start: 11-05-2021 3 comp foot exam completed [facility] Start: 11-05-2021 Adult depression screening assessment DEPRESSION SCREENING [facility] Start: 11-04-2021 Hepatitis B screening URINE ALBUMIN:CREATININE RATIO [facility] Start: 10-15-2021 Hepa vaccine adult dose for intramuscular use HEPATITIS A VACCINE ADULT IM Immunization/Injection Routine Need for vaccination Expected: 10/15/2021 [facility] Work Phone: Comment on above: Expected: 10/15/2021 Start: 10-15-2021 Tdap vaccine 7 yrs/> im TDAP VACCINE AGE 7+ IM Immunization/Injection Routine Need for vaccination Expected: 10/15/2021 [facility] Work Phone: Comment on above: Expected: 10/15/2021 Start: 05-15-2021 ADVANCE DIRECTIVE DISCUSSION ADVANCE DIRECTIVE DISCUSSION [facility] Start: 05-15-2021 DEPRESSION ASSESSMENT DEPRESSION ASSESSMENT [facility] Start: 10-23-2020 PNEUMOCOCCAL: 65+ (2 - PPSV23 if available, else PCV20) PNEUMOCOCCAL: 65+ (2 - PPSV23 if available, else PCV20) [facility] Start: 10-23-2020 PNEUMOCOCCAL: 65+ (2 - PPSV23 or PCV20) PNEUMOCOCCAL: 65+ (2 - PPSV23 or PCV20) [facility] Start: 10-16-2020 HEMOGLOBIN/HEMATOCRIT HEMOGLOBIN/HEMATOCRIT [facility] Start: 09-17-2020 COVID-19 VACCINE (2 - Booster for Alyssa series) COVID-19 VACCINE (2 - Booster for Alyssa series) [facility] Start: 12-19-2019 Pneumococcal vaccination [facility] Start: 12-19-2019 Pneumococcal Vaccine: 65+ (2 - PPSV23 or PCV20) Pneumococcal Vaccine: 65+ (2 - PPSV23 or PCV20) [facility] Start: 12-19-2019 PNEUMOCOCCAL: 65+ (2 - PPSV23 or PCV20) PNEUMOCOCCAL: 65+ (2 - PPSV23 or PCV20) [facility] Start: 11-08-2019 Screening for malignant neoplasm of colon [facility] Start: 10-26-2019 [facility] Start: 01-13-2019 Influenza vaccination Flu vaccine (#1) [place] Start: 12-23-2018 Annual Wellness Visit (AWV) Annual Wellness Visit (AWV) [place] Start: 2009 DEXA (modify frequency per FRAX score) DEXA (modify frequency per FRAX score) [place] Start: 2009 Pneumococcal 65+ years Vaccine (1 of 1 - PPSV23) Pneumococcal 65+ years Vaccine (1 of 1 - PPSV23) [place] Start: 2009 Pneumococcal 65+ years Vaccine (1 of 2 - PCV13) Pneumococcal 65+ years Vaccine (1 of 2 - PCV13) [place] Start: 10-26-2007 Annual Wellness Visit (AWV) Annual Wellness Visit (AWV) [place] Start: 2004 Hepatitis B Vaccine (1 of 3 - Risk 3-dose series) Hepatitis B Vaccine (1 of 3 - Risk 3-dose series) [facility] Start: 2004 RSV Vaccine (1 - 1-dose 60+ series) RSV Vaccine (1 - 1-dose 60+ series) [facility] Start: 10-26-1999 Screening for osteoporosis DEXA (modify frequency per FRAX score) [place] Start: 1994 Breast cancer screen Breast cancer screen [place] Start: 1994 Colon cancer screen colonoscopy Colon cancer screen colonoscopy [place] Start: 1994 Screening for malignant neoplasm of breast Breast cancer screen [place] Start: 1994 Screening for malignant neoplasm of colon Colon cancer screen colonoscopy [place] Start: 1994 Shingles Vaccine (1 of 2) Shingles Vaccine (1 of 2) [place] Start: 1984 Lipid screen Lipid screen [place] Start: 1965 Screening for malignant neoplasm of cervix [facility] Start: 10-26-1963 DTaP/Tdap/Td vaccine (1 - Tdap) DTaP/Tdap/Td vaccine (1 - Tdap) [place] Start: 10-26-1963 Third diphtheria, tetanus and acellular pertussis (DTaP) vaccination [facility] Start: 10-26-1963 Urine microalbumin profile [facility] Start: 1962 BP CONTROLLED (<130/80) BP CONTROLLED (<130/80) [facility] Start: 1962 HEPATITIS C SCREENING HEPATITIS C SCREENING [facility] Start: 1954 Lipid panel Lipid screen [place] Start: 1944 Creatinine measurement Creatinine monitoring [place], [place] Start: 1944 Creatinine monitoring Creatinine monitoring [place], [place] Start: 1944 Hepatitis C screen Hepatitis C screen [place] Start: 1944 Hepatitis C screening [facility] Start: 1944 Potassium monitoring Potassium monitoring [place] Start: 1944 Screening for osteoporosis [facility] Start: 1944 Tetanus vaccination [facility] End: 01-09-2019 Blood glucose - POCT Blood glucose - POCT Point of Care Testing Routine One Time for 1 Occurrences starting 01/09/2019 until 01/09/2019 [place] Comment on above: One Time for 1 Occurrences starting 12/14 until 01/09/2019 ECG COMPLETE [facility] Comment on above: Ordered: 05/31/2024 End: 05-31-2025 Echocardiography ECHO Cardiology Routine Atrial fibrillation, unspecified type (HCC) 1 Occurrences starting 05/31/2024 until 05/31/2025 [facility] Comment on above: 1 Occurrences starting 05/31/2024 until 05/31/2025 Patient referral [facility] Work Phone: End: 01-09-2019 Pulse Oximetry Spot Check Pulse Oximetry Spot Check Respiratory Care Routine One Time for 1 Occurrences starting 01/09/2019 until 01/09/2019 [place] Comment on above: One Time for 1 Occurrences starting 12/14 until 01/09/2019 End: 08-02-2024 PV FLUOROSCOPY OR [facility] End: 08-02-[address] [facility] Immunizations Immunization Date Immunization Notes Care Provider Paramjit hassan 07-23-2020 SARS-CoV-2 (COVID-19 ) Ad26 vaccine, recombinant [facility] Comment on above: Result Comment: 2024: [id number] 02-27-2020 influenza, high dose seasonal, preservative-free Kameron Caruso MD Work Phone: [facility] 02-27-2020 influenza virus vaccine, unspecified formulation Kameron Caruso MD Work Phone: [facility] 10-24-2019 pneumococcal conjuga te vaccine, 13 valent Kameron Caruso MD Work Phone: [facility] 10-24-2019 zoster vaccine recombinant Kameron Caruso MD Work Phone: [facility] 07-25-2019 influenza virus vaccine, unspecified formulation SILVINO HA DO [facility] 07-25-2019 influenza, seasonal, injectable Kameron Caruso MD Work Phone: [facility] 07-25-2019 zoster vaccine recombinant Kameron Caruso MD Work Phone: [facility] 04-13-2015 influenza virus vaccine, unspecified formulation SILVINO HA DO [id number] 05-01-2014 influenza virus vaccine, unspecified formulation SILVINO HA DO [facility] 05-01-2014 influenza, high dose seasonal, preservative-free Kameron Caruso MD Work Phone: [facility] 02-22-2012 influenza virus vaccine, unspecified formulation Kameron Caruso MD Work Phone: [facility] Work Phone: 03-19-2007 influenza virus vaccine, unspecified formulation Kameron Caruso MD Work Phone: [facility] Work Phone: Payers Date Payer Category Payer Medicare [id number] 2024 Unknown [id number] 2024 Self-pay 2018 Medicare [employer]-MEDICA RE ADVANTAGE [facility]-MEDICARE ADVANTAGE xxxxxxxxxxx 2018-Present [phone] [address] [place] [address] xxxxxxxxxxx [id number] 2018 Unknown [id number] 2013 [place] [employer] [id number] 2013-Present [phone] [address] [place] [address] O [id number] .7.3.323359.315 2013 Medicare [id number] 1.13.159.2 .[id number] 2013 Medicare (Managed Care) 1.2. [id number] .[id number] 2013 Medicare [id number] 1944 Unknown [id number] 2.16.840.1.058066.3.579.2 .627 1944 Unknown [id number] 2.16.840.1.161198.3.579.2 .732 1944 Unknown [id number] 2.16.840.1.160161.3.579.2 .594 1944 Unknown [id number] 2.16.840.1.969395.3.579.2 .594 1944 Unknown [id number] 2.16.840.1.704360.3.579.2 .627 Unknown [id number] 2.16.840.1.700410.3.579.2 .462 Unknown [id number] 2.16.840.1.529472.3.579.2 .462 Unknown [id number] 2.16.840.1.637092.3.579.2 .462 Unknown [id number] 2.16.840.1.782620.3.579.2 .462 Unknown [id number] 2.16.840.1.516431.3.579.2 .462 Unknown [id number] 2.16.840.1.450083.3.579.2 .462 Unknown [id number] 2.16.840.1.934114.3.579.2 .462 Unknown [id number] 2.16.840.1.255883.3.579.2 .462 Unknown [id number] 2.16.840.1.175652.3.579.2 .462 Unknown [id number] 2.16.840.1.618358.3.579.2 .462 Unknown [id number] 2.16.840.1.967505.3.579.2 .462 Unknown [id number] 2.16.840.1.871876.3.579.2 .462 Unknown [id number] 2.16.840.1.803853.3.579.2 .462 Unknown [id number] 2.16.840.1.102006.3.579.2 .462 Unknown [id number] 2.16.840.1.655173.3.579.2 .462 Unknown [id number] 2.16.840.1.502634.3.579.2 .462 Unknown [id number] 2.16.840.1.201815.3.579.2 .462 Unknown [id number] 2.16.840.1.105384.3.579.2 .462 Unknown [id number] 2.16.840.1.035659.3.579.2 .462 Unknown [id number] 2.16.840.1.086570.3.579.2 .462 Unknown [id number] 2.16.840.1.709373.3.579.2 .462 Unknown [id number] 2.16.840.1.292641.3.579.2 .462 Unknown [id number] 2.840.1.772507.3.579.2 .462 Unknown [id number] 2.840.1.220600.3.579.2 .462 Unknown [id number] 2.840.1.138360.3.579.2 .462 Unknown [id number] 2.840.1.112592.3.579.2 .462 Unknown [id number] 2.840.1.197491.3.579.2 .462 Unknown [id number] 2.840.1.381769.3.579.2 .462 Unknown [id number] 2.840.1.419247.3.579.2 .462 Unknown [id number] 2.840.1.446283.3.579.2 .462 Unknown [id number] 2.840.1.095405.3.579.2 .462 Unknown [id number] 2.840.1.695168.3.579.2 .462 Unknown [id number] 2.840.1.595361.3.579.2 .462 Unknown [id number] 2.840.1.282580.3.579.2 .462 Unknown [id number] 2.840.1.606673.3.579.2 .462 Unknown [id number] 2.840.1.456051.3.579.2 .462 Unknown [id number] 2.16.840.1.121888.3.579.2 .462 Unknown [id number] 2.16.840.1.327468.3.579.2 .462 Unknown [id number] 2.16.840.1.322838.3.579.2 .462 Social History Date Type Detail Facility Start: 01-09-2019 End: 08-02-2024 Tobacco smoking status NHIS Never smoker [facility] Start: 01-09-2019 End: 11-25-2022 Alcohol intake Never [facility] Work Phone: Start: 12-24-2018 History SDOH Alcohol Frequency 1 [place], [place] Start: 1945 Sex Assigned At Not on file [place] Start: 10-16-2019 Alcohol intake Lifetime non-d hortencia (finding) [place] Exposure to SARS-CoV -2 (event) Unable to assess [place] Start: 05-18-2021 End: 06-26-2024 Alcohol intake Current non-drinker of alcohol (finding) [facility] Start: 11-13-2021 End: 03-02-2022 Exposure to SARS-CoV-2 (event) Not sure [facility] Start: 02-02-2011 End: 03-02-2022 Tobacco use and exposure Smokeless tobacco non-user [facility] Start: 11-25-2022 End: 11-28-2023 History of Social function [facility] Work Phone: Adult Depression Screening Assessment 0 [facility] Work Phone: Start: 06-22-2005 End: 08-02-2024 Sex Female (finding) [facility] Start: 1945 Sex Assigned At Female [facility] Sexual Orientation [facility] Medical Equipment Procedure Code Equipment Code Equipment Original Text Equipment Identifier Dates [id number], [id number], [id number] Start: 11-30-2020 End: 04-08-2023 Comment on above: [...] Functional Status Room check performed [facility] 09-09-2024 Functional Status [facility] 09-09-2024 Functional Status Skin Care Prev entative Intervention(s) heel(s)s elevated [facility] 09-08-2024 Functional Status [facility] 09-08-2024 Functional Status [facility] 09-06-2024 Functional Status 11pm-7am [facility] 09-06-2024 Functional Status Antiembolism S tocking On/Re-applied bilateral knee high [facility] 09-05-2024 Functional Status Oral Care Maximum wilfred tance [facility] 09-05-2024 Functional Status [facility] 09-05-2024 Functional Status Done [facility] 09-04-2024 Functional Status [facility] 09-04-2024 Functional Status [facility] 09-03-2024 Functional Status NPO Status Maintained A maryamgonzalo [facility] 09-03-2024 Functional Status None [facility] 09-03-2024 Functional Status [facility] 08-29-2024 Functional Status [facility] 08-29-2024 Functional Status [facility] 08-27-2024 Functional Status Orthotics, Dev ice Worn Per Schedule Yes [facility] 08-27-2024 Functional Status [facility] 08-26-2024 Functional Status [facility] 08-23-2024 Functional Status [facility] 08-23-2024 Functional Status Breakfast Percent 25 Gillian anny [facility] 08-20-2024 Functional Status [facility] 08-19-2024 Functional Status [facility] 08-16-2024 Functional Status Single level h ome, basement laundry [facility] 08-16-2024 Functional Status Outside Stairs Rail Rail on left going up [facility] 08-15-2024 Functional Status Sensory Defici ts Speech deficit [facility] 10-14-2014 Are you deaf, or do you have serious difficulty hearing No [facility] 10-14-2014 Are you blind, or do you have serious difficulty seeing, even when wearing glasses No [facility] 10-14-2014 Do you have serious difficulty walking or climbing stairs No [facility] 10-14-2014 Do you have difficul ty dressing or bathing No [facility] 10-14-2014 Because of a physica l, mental, or emotional condition, do you have difficulty doing errands alone such as visiting a physician's office or shopping No [facility] Mental Status Date Assessment Result Facility 09-09-2024 Mental Status Does not interact [facility] 09-08-2024 Mental Status [facility] 09-08-2024 Mental Status [facility] 08-02-2024 Cognitive function Awake;Alert;F ollows Commands [facility] Work Phone: 10-14-2014 Because of a physica l, mental, or emotional condition, do you have serious difficulty concentrating, remembering, or making decisions No [facility] Clinical Notes 11-03-2020 to 10-02-2024 Note Date & Type Note Facility 10-02-2024 Evaluation note Diagnosis Onset Date Resolution Acute ischemic right MCA stroke acute October 02, 2024 9:29am Essential hypertension acute Ma 2024 9:29am Hyperlipidemia acute October 02, 2024 9:29am Paroxysmal atrial fibrillation with RVR acute October 02, 2024 9:29am [facility] Work Phone: 1(402) 824-739004-28-2025 Note Discharge Instructions Thank you for allowing [...] KAMERON CARUSO MD When:Within 3-7 days Where:[address] [place] [address]- Additional Information: Please schedule follow up PCP appointment for after discharge from SNF, Bring discharge instructions with you Follow Up with RIMMA POWERS MD When:10/08/2024 04:00 PM EDT Where:[facility] ([address], [place]) Additional Information: Neurosurgeon The Following Activity and [...] standard right Seat cushion, 99 month(s), Tyler [id number], 09/02/24 8:22:00 EDT Transfer of Care Wound [...] depending on your insurance coverage. Check with [employer] about what is covered. Keeping follow-up visits [...] 08/04/2017 Document Revised: 05/04/2018 Document Reviewed: 08/04/2017 [employer] Patient Education 2020 [employer] Additional Information VACCINATE! IT SAVES LIVES! Members of the community who have not yet received the COVID-19 vaccine and would like to receive it can visit one of [facility] vaccine clinics. There are many vaccine clinic locations within the [facility]. For locations and available times, please visit [email or web address] It is important to note that some COVID mobile vaccine clinics are held outdoors and may be canceled in rainy or stormy conditions. To learn more about pediatric vaccinations (ages 5-11), we invite you to visit the [facility] webpage. https://www.[email or web address]/pages/[email or web address] [email or web address].htmlTo learn more about the COVID-19 vaccine, we invite you to visit the CDC website for a list of frequently asked questions.https://www.cdc.gov/coronavirus/2019-ncov/vaccines/faq.html [facility] Patient Portal Access Instructions: Stay connected with your healthcare team and access your personal medical information anytime with the [facility] Patient Portal. Please follow the directions below to create your [facility] account: 1.Access the email account you provided upon registration to the hospital/physician office.2.Look for an invitation email from [facility].3.Open the email and access the invitation link: AcceptInvitation to [facility].4.Fill in the required richards to create your account. To access your account, visit [email or web address]/[email or web address] Powert. Click the blue button labeled "Access Patient Portal" and then log in with the username and password that you created in the steps above. You will be able to view your test results, lab results, a summary of your visits, upcoming appointments and more. There is also a convenient messaging option where you can send secure messages to your p NewsBasisvider. In addition, you will have the ability to download any documents or summaries to your computer and/or send the information securely to a physician. Remember that your healthcare information is confidential, so carefully consider who you will allowto register on the [facility] Patient Portal for access to your information. You can also access the [facility] Patient Portal on the [facility] dahlia. Simply click on "Patient Portal" and then log into your account. If you would like to receive a full copy of your medical records, please contact the [facility] Medical Records Department by calling [phone], Monday through Monday between 8 a.m. and [...] Call your local pharmacy or go to [email or web address] to find one close to you.3.Make use of household items: Use cat litter or old coffee grounds to dispose medications if other options arenot available. Mix your drugs with these household products, seal them in an airtight container andthrow it into the garbage. Call [facility]: [phone] to be sure your drugs can be [...] aware that I should contact my doctor. Patient/Cryptographic Technician Signature: Date/Time: Relationship to Patient: Witness Name/Signature: Date/Time: Tyler [id number] Note Discharge Instructions Thank you for allowing [...] KAMERON CARUSO MD When:Within 3-7 days Where:[address] [place] [address]- Additional Information: Please schedule follow up PCP appointment for after discharge from SNF, Bring discharge instructions with you Follow Up with RIMMA POWERS MD When:10/08/2024 04:00 PM EDT Where:[facility] ([address], [place]) Additional Information: Neurosurgeon The Following Activity and [...] standard right Seat cushion, 99 month(s), Tyler [id number], 09/02/24 8:22:00 EDT Transfer of Care Wound [...] depending on your insurance coverage. Check with your[employer]aegeuk Res[employer] company about what is covered. Keeping follow-up [...] Document Reviewed: 08/04/2017 Elsevier Patient Education 2020 [employer] Additional Information VACCINATE! IT SAVES LIVES! Members of the community who have not yet received the COVID-19 vaccine and would like to receive it can visit one of [facility] vaccine clinics. There are many vaccine clinic locations within the [facility]. For locations and available times, please visit [email or web address]/. It is important to note that some COVID mobile vaccine clinics are held outdoors and may be canceled in rainy or stormy conditions. To learn more about pediatric vaccinations (ages 5-11), we invite you to visit the [facility] webpage. https://www.[facility].org/pages/7061-Qyiis-Wfyslrgrjwq-Pmjrqisidx-Zdflf-Ldv stions.htmlTo learn more about the COVID-19 vaccine, we invite you to visit the CDC website for a list of frequently asked questions.https://www.cdc.gov/coronavirus/2019-ncov/vaccines/faq.html [facility] Patient Portal Access Instructions: Stay connected with your healthcare team and access your personal medical information anytime with the [facility] Patient Portal. Please follow the directions below to create your [facility] account: 1.Access the email account you provided upon registration to the hospital/physician office.2.Look for an invitation email from [facility].3.Open the email and access the invitation link: AcceptInvitation to [facility].4.Fill in the required richards to create your account. To access your account, visit [email or web address]. Click the blue button labeled "Access Patient [...] who you will allowto register on the [facility] Patient Portal for access to your information. You can also access the [facility] Patient Portal on the [facility]where dahlia. Simply click on "Patient Portal" and then log into your account. If you would like to receive a full copy of your medical records, please contact the [facility] Medical Records Department by calling [phone], Monday through Sky between 8 a.m. and 4:30 p.m. HOW [...] Call your local pharmacy or go to [email or web address] [email or web address] to find one close to you.3.Make use of household items: Use cat litter or old coffee grounds to dispose medications if other options arenot available. Mix your drugs with these household products, seal them in an airtight container andthrow it into the garbage. Call [facility]: [phone] to be sure your drugs can be [...] aware that I should contact my doctor. Patient/Cryptographic Technician Signature: Date/Time: Relationship to Patient: Witness Name/Signature: Date/Time: Tyler [id number] Physical medicine and rehab Discharge summary Date [...] in discharge valuation. She was admitted to [place] [facility] unit from [facility] stay 08/02 - 08/15 who has a history of CAD, DM2, atrial fibrillation and hypertension whopresented to the ER after noting left-sided weakness and slurred speech. Originally presented to [facility] where CT head was obtained showing [...] self-care assistance needs decision made to request [place] [facility] facility. Approval is requested. Patient was to follow-up with gastroenterology regarding PEG tube removal at [facility] at discharge. Repeat head CT was performed [...] Ordered -- 08/15/24 17:18:00 EDT, AMI HEATON APRN-CHILD CARE SPECIALIST, [facility] per policy Physical Exam Vitals [...] oral tablet)1 tab(s) PEG tube every day. [id number] Microgram PEG tube once a day. metoprolol [...] KAMERON CARUSO MD When:Within 3-7 days Where:[address] [place] [address]- Additional Information: Please schedule follow up PCP appointment for after discharge from SNF, Bring discharge instructions with you Follow Up with RIMMA POWERS MD When:10/08/2024 04:00 PM EDT Where:[facility] ([address], [place]) Additional Information: Neurosurgeon Follow Up Appointments No qualifying data available. Follow Up Labs/Studies Discharge Labs No Follow-up Labs Discharge Studies No Follow-up Studies Discharge Diet No qualifying data available. Discharge Activity No qualifying data available. Condition on Discharge Stable Discharge Disposition senior care facility Information Provided To Patient and family Time Spent Greater than 35 minutes Digitally Signed by SILVINO HA DO on 09/09/2024 01:46 PM Tyler GarciaBoldfayo52-84-3849 Nurse Progress note Nursing GG Entered On: 09/09/2024 10:55 EDT Performed On: 09/09/2024 10:55 EDT by Abigail Rodas RN Nursing GG's OT GG Grid Eating : Not Completed Abigail Rodas RN - 09/09/2024 10:55 EDT Digitally Signed by Abigail Rodas RN on 09/09/2024 10:55 AM Tyler GarciaPcodbbwe87-73-5474 Nurse Progress note Nursing GG Entered On: 09/08/2024 17:39 EDT Performed On: 09/08/2024 17:39 EDT by Rob Alarcon RN Nursing GG's OT GG Grid Eating : Not Completed Oral Hygiene : Not Completed Toilet Hygiene : Substantial/Maximal Assistance Toilet Transfer : Substantial/Maximal Assistance Rob Alarcon RN - 09/08/2024 17:39 EDT Digitally Signed by Rob Alarcon RN on 09/08/2024 05:39 PM Tyler GarciaAbyvwamu02-70-2954 Nurse Progress note Pt had 250ml residual, 12:30pm bolus was held! Digitally Signed by Rob Alarcon RN on 09/08/2024 12:47 PM Tyler GarciaDnutqlss01-25-0651 Physical medicine and rehab Progress note Rehab [...] and slurred speech. She originally presented to [facility] with CT of the head was obtained showed no acute hemorrhage or large territory stroke. CTA showed mid right M1 occlusion however patient was not a TNK candidate. She was then transferred to a [facility] for further management. CT of [...] 80 mg 1 tab(s), PEG, Daily balsam Wade-castor oil topical 87 mg-788 mg/g oint 60g [...] Rate64(SEP 05 16:46)64(SEP 05 16:46)85(SEP 05 09:40) QGK076(SEP 05 16:36)138(SEP 05 16:36)H 158(SEP 05 09:52) [...] SILVINO HA DO on 09/06/2024 12:34 PM [facility] Discharge instructions Patient Education 09/05/2024 14:15:00 [...] depending on your insurance coverage. Check with [employer] company about what is covered. Keeping follow-up [...] 08/04/2017 Document Revised: 05/04/2018 Document Reviewed: 08/04/2017 [employer] Patient Education 2020 [employer] Follow Up Care 08/15/2024 08:51:25 With:RIMMA POWERS MD Address: [facility] ([address], [place]) When:10/08/2024 16:00:00 Comments:Neurosurgeon With:JONNIE BANSAL MD Address: [facility] When: Unknown Comments:GI, No appointment needed until PEG is ready to be removed or concerns arise With:KAMERON CARUSO MD Address: [facility] [place] [address]- When:3-7 days Comments:Please schedule follow up PCP [...] less than 3 seconds. Ongoing hemiparesis VITALS GantplDgimSORavvfCUEgT3RAE7QodwCv(kg) 09/05 09:5236.3--071002SL 09/05 09:40----85----RA 09/04 23:3236.6--676576ZF 09/04 21:2436.5--233905EQ 09/04 16:01----72----RA 24 Hr Tmax: 36.6 at [...] None Problems (6) CVA (cerebral vascular accident) (778873650) Diabetes mellitus (224947663) Dysphagia (66618182) Hyperlipidemia (30429147) Hypertension (9577504867) Osteoarthritis (0822093819) ASSESSMENT/PLAN: Right basal ganglia hemorrhage, status post thrombectomy with revascularization follow-up appointment with neurosurgery on 10/08. Continue work with physical and Occupational Therapy with goal to return home at discharge. reports that referrals [place] been [place] to [place] [facility] yesterday. Currently has 4 options in [...] by CATHERINE NEWMAN on 09/05/2024 04:55 PM [facility] Physical medicine and rehab Progress note Subjective [...] area Neuro: Left upper extremity hemiparesis VITALS AcbqhtQxgnXHMazyuCSHhB9YMD9BtzuYj(kg) 09/04 23:3236.6--501139QH 09/04 21:2436.5--406614CL 09/04 16:01----72----RA 09/04 12:10--------97RA 09/04 10:5435.9--266137SN 24 Hr Tmax: 36.6 at 09/04 23:32 [...] SBP (mmHg) < 110, [facility] dose [facility], 1, 08/15/24 17:09:00 EDT Active PRN [...] 2 minutes, REPEAT x1., 1st dose location: [facility], 0, 08/15/24 1... glucose (Dextrose 50% [...] None Problems (6) CVA (cerebral vascular accident) (503918208) Diabetes mellitus (174775827) Dysphagia (13387511) Hyperlipidemia (50081977) Hypertension (2586283024) Osteoarthritis (0391433223) ASSESSMENT/PLAN: Acute right basal ganglia hemorrhage with [...] HUTTON DO on 09/05/2024 10:12 AM Tyler GarciaVcvqrzno70-75-0175 Physical medicine and rehab Progress note Rehab [...] and slurred speech. She originally presented to [facility] with CT of the head was obtained showed no acute hemorrhage or large territory stroke. CTA showed mid right M1 occlusion however patient was not a TNK candidate. She was then transferred to a [facility] for further management. CT of [...] Rate64(SEP 03 15:52)64(SEP 03 15:52)90(SEP 03 08:28) XVN640(SEP 04 05:38)112(SEP 04 05:38)127(SEP 03 08:00) DBP70(SEP [...] HA DO on 09/04/2024 11:55 AM Tyler GarciaPnlbijxc68-39-9109 Note Subjective Patient states she is doing [...] area Neuro: Left upper extremity hemiparesis VITALS AmxhypGpajHLTfbsbSREeG5RXR9OfivGv(kg) 09/03 21:4136.4--611746IJ 09/03 15:52----64----RA 09/03 08:46 RA 09/03 08:28----90----RA 09/03 08:0036.4--367726LJ 24 Hr Tmax: 36.4 at 09/03 21:41 [...] SBP (mmHg) < 110, 1st dose location: [facility], 1, 08/15/24 17:09:00 EDT oxybutynin (oxybutynin [...] 2 minutes, REPEAT x1., 1st dose location: [facility], 0, 08/15/24 1... glucose (Dextrose 50% [...] None Problems (6) CVA (cerebral vascular accident) (315202613) Diabetes mellitus (540366834) Dysphagia (29138489) Hyperlipidemia (74722388) Hypertension (6090152136) Osteoarthritis (1949181400) ASSESSMENT/PLAN: Acute right basal ganglia hemorrhage with [...] sugars closely. Follow-up with neurosurgery 10/08 Philippe Sures[facility]an [facility] protocol in place with ice chips only, [...] software and may contain typographical errors. I, A. Grover RN, am scribing for , and in the presence of Dr. Hutton. I, Dr. Hutton, personally performed the services described in this documentation, as scribed by, Anjelica Grover RN in my presence and it is both accurate and complete. Digitally Signed by NANDO HUTTON DO on 09/05/2024 08:57 AM Tyler GarciaInhcmcfb04-08-2286 Note Subjective Patient states that she is [...] area Neuro: Left upper extremity hemiparesis VITALS MleirhFmidJWAwbtcKTNsW7HRY7JtwtJk(kg) 09/03 00:2636.3--645138UB 09/02 21:5136.2--841073LY 09/02 16:56----88--98RA 09/02 10:40 RA 09/02 09:0936.0--451099ZX 24 Hr Tmax: 37.0 at 09/02 05:55 [...] tab(s), PEG, Daily, 08/15/24 17:09:00 EDT balsam Wade-castor oil topical (Venelex 788 mg-87 mg/g topical [...] SBP (mmHg) < 110, 1st dose location: [facility], , 08/15/24 17:09:00 EDT oxybutynin (oxybutynin [...] 2 minutes, REPEAT x1., 1st dose location: [facility], 0, 08/15/24 1... glucose (Dextrose 50% [...] None Problems (6) CVA (cerebral vascular accident) (109434035) Diabetes mellitus (861821103) Dysphagia (75042371) Hyperlipidemia (10543141) Hypertension (0778480183) Osteoarthritis (8804474642) ASSESSMENT/PLAN: Acute right basal ganglia hemorrhage with [...] HUTTON DO on 09/05/2024 08:57 AM Tyler GarciaMaxmdedo82-87-4441 Note* Exam Date Time Procedure Performing Provider Status 09/02/24 2:[address] Head or Brain w/o Contrast SHORT, J CHELI H MD; Auth (Verified) [id number] ORIGINAL HISTORY: Lethargy COMPARISON: No TECHNIQUE: Routine [...] 09/02/2024 3:10:44 PM Ordering Provider: SILVINO Scott [id number] Telephone encounter Note* Telephone Encounter - Fouzia Miller LPN - 08/30/2024 10:09 AM EDT Marya with Tyler [facility] notified. [facility]04-18-2025 Miscellaneous Notes* Telephone Encounter - Fouzia Miller LPN - 08/30/2024 10:09 AM EDT Marya with Tyler [facility] notified. * Telephone Encounter - Mj Glover APRN.CHILD CARE SPECIALIST - 08/30/2024 9:19 AM EDT Please let know that Dr. Caruso's team will follow HH orders. Okay to proceed. Mj Glover APRN.CNP * Telephone Encounter - Jaiden Paulino RN - 08/30/2024 9:07 AM EDT [facility] reports patient was in [facility] with dx: stroke, and transferred to [facility]. [facility] home with [facility] SN PT OT [facility] & [facility]. Asking if pcp agreeable to follow for HHC. Please phone Marya with verbal: [phone] [facility] Telephone encounter Note * Telephone Encounter - Mj Glover APRN.CNP - 08/30/2024 9:19 AM EDT Please let HH know that Dr. Caruso's team will follow HH orders. Okay to proceed. Mj Glover APRN.GARRETT [facility]04-18-2025 Telephone encounter Note* Telephone Encounter - Jaiden Paulino RN - 08/30/2024 9:07 AM EDT [facility] reports patient was in [facility] with dx: stroke, and transferred to [facility]. [facility] to home with [facility] SN PT OT [facility] & [facility]. Asking if pcp agreeable to follow for HHC. Please phone Marya with verbal: [phone] [facility]04-14-2025 Note REFERRING PHYSICIAN: Silvino Ha DO. CONSULTING PSYCHOLOGIST: Matthew Gibson, PhD. REASON FOR REFERRAL: Neuropsychological exam. HISTORY OF PRESENT ILLNESS: Ms. Acuna is a 78-year-old right-handed white female admitted to [facility] from [facility] on 08/15/2024 after developing left-sided weakness and slurred speech. Initially seen at [facility] where brain CT was negative.CTA then [...] mild concussions suffered after a career in [employer]. No residual deficits reported. No other VESSEL BUILDER injuries or illnesses. MENTAL HEALTH HISTORY: No [...] of NPO. and Mrs. Acuna live in [place]. 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 She has a high school diploma from her hometown in [place], [place]. TEST RESULTS: I used the Cognistat, [...] be determined. MATTHEW GIBSON, PhD GM/NTS JOB#: [id number] DICTATION ID#: [id number] Digitally Signed by MATTHEW GIBSON PhD on 08/27/2024 08:21 AM Tyler GarciaWixykgiv14-97-5289 Note* Exam Date Time Procedure Performing Provider Status 08/25/24 1:46 PM XR Hand and Wrist 6 Views Left Buck DUNNE DO; Auth (Verified) [id number] ORIGINAL EXAMINATION: 3 XRAY VIEWS OF THE [...] Views Left JAMAR DUNNE DO; Auth (Verified) [id number] ORIGINAL EXAMINATION: TWO XRAY VIEWS OF THE [...] Views Left JAMAR DUNNE DO; Auth (Verified) [id number] ORIGINAL EXAMINATION: TWO XRAY VIEWS OF THE [...] 1 View Contributor_system, FUJ I; Auth (Verified) [id number] ORIGINAL EXAMINATION: ONE XRAY VIEW OF THE [...] 08/18/2024 3:14:15 PM Ordering Provider: NANDO Scott [id number] Evaluation + Plan noteExtracted from: Title:Clinical Document Author:EZEQUIEL HUSTON RN-CHILD CARE SPECIALIST Date:08/16/24 Acute Inpatient Rehab Histor y and Physical Date of Service: 08/16/2024 Date of Admission: 08/15/2024 Attending Physician: Dr. Ha Impairment Group 1.1 left body involvement, right brain stroke Etiologic Diagnosis Hemorrhagic infarct involving right basal ganglia, mass effect with effacement of right lateral ventricle, tiny infarct in right cerebellum History of Present Illness 78-year-old female noted to home in inpatient rehab from [facility] stay 08/02 - 08/15 who is past medical history of coronary artery disease, diabetes mellitus type 2, atrial relation, hypertension, osteoarthritis, and hyperlipidemia who presented to the emergency room with noted left-sided weakness and slurred speech. She originally presented to [facility] with CT of the head was obtained showed no acute hemorrhage or large territory stroke. CTA showed mid right M1 occlusion however patient was not a TNK candidate. She was then transferred to a [facility] for further management. CT of [...] feedings. Patient deemed medically stable transferred to [place] inpatient rehab unit for physical and occupational [...] with spouse, first- floor set up. Primary Foundation Coordinator: Self. Safe place to go: Yes. Lives [...] Rate80(AUG 15 20:06)80(AUG 15 20:06)80(AUG 15 20:06) GCY610(AUG 16 00:03)128(AUG 16 00:03)140(AUG 15 17:47) DBP76(AUG 16 00:03)76(AUG 16 00:03)80(AUG 15 17:47) 36hr Labs 08/15 1805 Blood Glucose, Tzssszwnd120K Blood Glucose, Ffzeafwfo639C Blood Glucose TSee Flowsheet Assessment/Plan Debility and [...] and it is both accurate and complete. [facility] 04-04-2025 Physical medicine and rehab Consult note INPATIENT REHAB MEDICAL CONSULT DATE OF ADMISSION: 08/16/2024 CC: Acute right basal hemorrhage HISTORY OF PRESENT ILLNESS: This is a 78-year-old female admitted to [place] inpatient rehab unit from [facility] stay 08/02 - 08/15 who has a history of CAD, DM2, atrial fibrillation and hypertension who presented to the ER after notingleft-sided weakness and slurred speech. Originally presented to [facility] where CT head was obtained showing [...] was deemed medically stable and transferred to [place] inpatient rehab unit for physical and occasional [...] Rate80(AUG 15 20:06)80(AUG 15 20:06)80(AUG 15 20:06) GXG923(AUG 16 00:03)128(AUG 16 00:03)140(AUG 15 17:47) DBP76(AUG [...] reviewed. 36hr Labs / 1805 Blood Glucose, Usarjudoi091A Blood Glucose, Cngcqlcly202R Blood Glucose TSee Flowsheet ASSESSMENT AND PLAN: [...] will follow during acute rehabilitation stay at [facility] with the goal [...] by CATHERINE NEWMAN on 08/17/2024 04:53 PM [facility]jpgffgm27-44-8892 Physical medicine and rehab History and physical [...] noted to home in inpatient rehab from [facility] stay 08/02 -08/15 who is past medical history of coronary artery disease, diabetes mellitus type 2, atrial relation, hypertension, osteoarthritis, and hyperlipidemia who presented to the emergency room with noted left-sided weakness and slurred speech. She originally presented to [facility] with CT of the head was obtained showed no acute hemorrhage or large territory stroke. CTA showed mid right M1 occlusion however patient was not a TNK candidate. [facility] head showed acute right basal ganglia hemorrhage with surrounding mass effect and midline shift. On 08/02 underwent thrombectomy with NSGY with FBAIAN ICI TB revascularization. Postoperatively she did fail [...] feedings. Patient deemed medically stable transferred to [place] inpatient rehab unit for physical and occupational [...] with spouse, first- floor set up. Primary Foundation Coordinator: Self. Safe place to go: Yes. Lives [...] Rate80(AUG 15 20:06)80(AUG 15 20:06)80(AUG 15 20:06) UOY267(AUG 16 00:03)128(AUG 16 00:03)140(AUG 15 17:47) DBP76(AUG 16 00:03)76(AUG 16 00:03)80(AUG 15 17:47) 36hr Labs 08/15 1805 Blood Glucose, Uydwoxthr751R Blood Glucose, Kkozcooch325O Blood Glucose TSee Flowsheet Assessment/Plan Debility and [...] EZEQUIEL HUSTON on 08/22/2024 05:17 AM Tyler GarciaKculmiyr46-50-3794 Miscellaneous Notes* Nursing Notes - Robson Steel [...] pacing over x3-5 sessions Outcome: Ongoing Problem: SINGLE ENDING MACHINE OPERATOR - Cognition Goal: Orientation Log [...] pacing over x3-5 sessions Outcome: Ongoing Problem: SINGLE ENDING MACHINE OPERATOR - Cognition Goal: Orientation Log [...] Hepatology, and Nutrition Clinical Fellow PGY-4 Pager: [phone] * Plan of Care - Manisha Cheema [...] or what the specific medication was. DaughterKeagan [phone] would be able to answer questions. Catherine [...] oropharyngeal swallow function to most appropriately guide SINGLE ENDING MACHINE OPERATOR plan of care Outcome: Met [...] readiness for diet advancement Outcome: Met Problem: SINGLE ENDING MACHINE OPERATOR - Cognition Goal: Orientation Log [...] better assess deficits and most appropriately guide SINGLE ENDING MACHINE OPERATOR plan of care Outcome: Met [...] of Care: 1. Diet: NPO. Advancement per team/SINGLE ENDING MACHINE OPERATOR recommendation 2. Ordered TF: Glucerna [...] readiness for diet advancement Outcome: Ongoing Problem: SINGLE ENDING MACHINE OPERATOR - Cognition Goal: Orientation Log [...] better assess deficits and most appropriately guide SINGLE ENDING MACHINE OPERATOR plan of care Outcome: Ongoing * Nursing Notes - Aniyah Torre RN - 08/02/2024 6:13 PM EDT [facility] a dual RN initial assessment [...] change from previous assessment. Pt transferred to [facility] via cart accompanied by Denae ENRIQUEZ. T [...] under emergency consent. SURGEON(S): Prema Ramos MD BIT GATHERER(S): None ANESTHESIA: Monitored anesthesia care DESCRIPTION OF [...] Freeclimb 70/Serjio 7 was advanced over a Balandras microcatheter which was advanced over a synchro [...] - 08/02/2024 3:26 PM EDT Lindsay Acuna ([id number]) PRE OPERATIVE DIAGNOSIS Cerebral infarction due to [...] - Primary ANESTHESIOLOGIST Anesthesiologist: Tameka Ruth MD ANATOMIC PATHOLOGIST: Bebo Barboza APRN-ANATOMIC PATHOLOGIST SURGICAL STAFF Central Office Supervisor: Rachell Ruffin RN Medtronics Technician: Paulina Muñiz; Radha Morales COMPLICATIONS None ESTIMATED BLOOD LOSS Minimal SPECIMENS No specimen sent * No specimens in log * Prema Ramos MD August 02, 2024 3:26 PM [facility] History of Present illness Narrative* OWEN Benavides - 08/15/2024 9:01 AM EDT Care Management Discharge Note Selected Continued Care - Admitted Since 08/02/2024 Destination Coordination complete. Service Provider Services Address Phone Fax Patient Preferred [address] [address] -- -- Internal Comment last updated by OWEN Benavides 08/15/2024 0901 Report fax: [phone] Transport Request Mode of Transfer: [facility] Name of Discharge Transport Company: [employer] Discharge Transport ETA: 08/15/2024 @ 1030 Patient medically stable for discharge per physician/medical team. Pt has neurology appointment scheduled. Pt/ to schedule appointment with PCP. Patient/Cryptographic Technician remain in agreement withthe discharge plan. BULMARO Allen Materials Handler * OWEN Benavides - 08/14/2024 3:17 PM [...] numbersfor RN report tomorrow morning. BULMARO Allen Materials Handler * Marybeth Ayoub - 08/14/2024 2:51 PM EDT Care Management Progress Note Transportation for discharge arranged Mode of Transfer: (P) [facility] Name of Discharge Transport Company: (P) [facility] [facility]charge [facility] ETA: (P) 08/15/2024 @ 1030 [facility] Destination Tyler ALVARADO [address] [facility] [address] OWEN Morrell Materials Handler Transmission Design Engineer [phone] * Jazzy Aguiar - 08/14/2024 9:47 AM [...] position Mobility Assessment/Intervention: Supine to Sit Mobility [place] Level: Supine->Sit: moderate assist (50% patient effort) Physical Assist: Supine->Sit: 2 person assist Bed Features/Set-up: Supine->Sit: Head of bed elevated, Use of bed rail Skilled Rationale: Verbal cues, Tactile cues, Hand placement, Positioning, Technique of activity Skilled Intervention/Details: Supine->Sit: Cues for technique of transfer and pt needing increased assistance for managing legs and trunk to EOB positioning Transfer Assessment/Intervention: Sit to Stand Transfer [place] Level: Sit->Stand: moderate assist (50% patient effort) [...] hand held support Stand to Sit Transfer [place] Level: Stand->Sit: moderate assist (50% patient effort) Physical Assist: Stand->Sit: 2 person assist Assistive Device: Stand->Sit: gait belt, hand held assist Skilled Rationale: Verbal cues, Tactile cues, Hand placement, Positioning, Controlled descent for sitting Skilled Intervention/Details: Stand->Sit: Cues for positioning with BSC and recliner, pt provided bilat hand held support and needing increased support for managing a controlled descent Bed-Chair Transfer [place] Level: Bed<->Chair: maximum assist (25% patient effort) [...] managing L side during transfer Toilet Transfer [place] Level: Toilet: moderate assist (50% patient effort) [...] upright gaze when standing Outcome Score(s): CURRENT -[facility] Daily Activity Inpatient Short Form Putting on/Taking Off Lower Body Clothin - Total Assistance Bathin - A Lot of Assistance Toiletin - Total Assistance Putting on/Taking Off Upper Body Clothin - A Little Assistance Groomin - A Little Assistance Eatin - Total Assistance CURRENT -[facility] Activity Raw Score: 11 CURRENT AM-[facility] Activity Functional Limitation/Modifier: 70.42% Currently Impaired [...] person, Oriented to place, Oriented to situation ("[place]" "hospital" "May" "2024" "stroke") Following Commands: Follows [...] blocking Mobility Assessment/Intervention: Supine to Sit Mobility [place] Level: Supine->Sit: moderate assist (50% patient effort) [...] sitting) Transfer Assessment/Intervention: Sit to Stand Transfer [place] Level: Sit->Stand: moderate assist (50% patient effort) Physical Assist: Sit->Stand: 2 person assist Assistive Device: Sit->Stand: gait belt Skilled Rationale: Arm in arm, Patellar block, Ischial assist, Facilitate anterior shift, Full extension to upright positioning/posture, Finding/maintaining midline positioning Skilled Intervention/Details: Sit->Stand: repeat cues to avoid significant L lean with improvement last standing. x1 from EOB, x2 from BSC Stand to Sit Transfer [place] Level: Stand->Sit: moderate assist (50% patient effort) Physical Assist: Stand->Sit: 2 person assist Assistive Device: Stand->Sit: gait belt Skilled Rationale: Arm in arm, Controlled descent for sitting Skilled Intervention/Details: Stand->Sit: last trial assisted R hand to recliner arm rest and ongoing cues for wt shift to R Bed-Chair Transfer [place] Level: Bed<->Chair: maximum assist (25% patient effort) [...] Mobility Assessment/Intervention: Stairs Assessment/Intervention: Outcome Score(s): CURRENT [facility] Basic Mobility Inpatient Short Form Turning over in bed: 2 - A Lot of Assistance Moving from lying on back to sittin - Total Assistance Moving to and from bed to chair: 1 - Total Assistance Sitting/standing from chair: 2 - A Lot of Assistance Walk in hospital room: 1 - Total Assistance Climbing 3-5 steps with a railin - Total Assistance CURRENT [facility] Mobility Raw Score: 8 CURRENT [facility] Mobility Functional Limitation: 86.62% Impaired in Basic [...] 10 Treating Therapist: Shaina Rosales PT, DPT [id number] 08/14/2024 Additional Details: PT Co-Eval/Treatment Information Co-evaluation/co-treatment [...] Physical Therapy Discharge Summary. * Tanja Cason, SINGLE ENDING MACHINE OPERATOR - 08/14/2024 8:37 AM EDT Acute Care [...] on the below outcome measures/assessment score(s) and SINGLE ENDING MACHINE OPERATOR clinicaljudgment, discharge destination recommendation is: I[facility] Barriers to discharge home: 1:1 assist needed for IADL's including medication management and finances Supporting factors for discharge setting: Impaired swallow function limiting nutritional status andsafety with oral intake, Impaired cognitive skills limiting safety/insight Acute SINGLE ENDING MACHINE OPERATOR Outcomes Tracking Communicate basic wants [...] independent carry over. Strong family support. Ongoing SINGLE ENDING MACHINE OPERATOR s indicated. Subjective information: Alert, present. SO referenced his notes from yesterday and reportedcarry over of exercises yesterday. Patient with zero recall Pain: Nonverbal indicator not present Precautions: Patient Safety Communication Prior to Visit: Nursing Lines/Tubes/Drains (Rehab Status): Telemetry, Tube feed Existing Precautions/Restrictions: fall Respiratory Status: O2 Sat (%): 96 % (08/14 0711) O2 Device: room air (08/14 0947) Acute SINGLE ENDING MACHINE OPERATOR Goals Plan of Care by Tanja Cason SINGLE ENDING MACHINE OPERATOR at 08/14/2024 2:42 PM Version [...] RoM to achieve technique. Outcome: Ongoing Problem: SINGLE ENDING MACHINE OPERATOR - Cognition Goal: Orientation Log [...] next session: 08/14 - ongoing exercises, education SINGLE ENDING MACHINE OPERATOR Outcomes: [place] 2 Speech Language Pathologist: RIKI [...] of session: none altered Needs in reach. SINGLE ENDING MACHINE OPERATOR Evaluation and Treatment Time Speech Therapy - Individual 63715: 14 Swallowing Dysfunction Treatment 48051: 14 Upon discontinuation of Acute Care Speech [...] on the below outcome measures/assessment score(s) and SINGLE ENDING MACHINE OPERATOR clinicaljudgment, discharge destination recommendation is: Inpatient Rehab Facility Barriers to discharge home: 1:1 assist needed for IADL's including medication management and finances Supporting factors for discharge setting: Impaired swallow function limiting nutritional status andsafety with oral intake, Impaired cognitive skills limiting safety/insight Acute SINGLE ENDING MACHINE OPERATOR Outcomes Tracking Communicate basic wants [...] O2 Device: room air (08/13 710) Acute SINGLE ENDING MACHINE OPERATOR Goals Plan of Care by Tanja Cason, SINGLE ENDING MACHINE OPERATOR at 08/13/2024 11:10 AM Version [...] 10 reps this session. Outcome: Ongoing Problem: SINGLE ENDING MACHINE OPERATOR - Cognition Goal: Orientation Log [...] considerations: Cognition Patient Instruction/Education comments: Role of SINGLE ENDING MACHINE OPERATOR, presence and normalized frustration with cognitive-communicative impairments. Focused on memory this date and that patient does not recall education so perseverative questions are normal. Reviewed intermittent silent aspiration from MBS last weekand ongoing signs of dysphagia this session, will plan to coordinate timing for repeat instrumentalwith care team Plan for next session: 08/13 -fair SINGLE ENDING MACHINE OPERATOR Outcomes: FOIS 2 Speech Language [...] of session: none altered Needs in reach. SINGLE ENDING MACHINE OPERATOR Evaluation and Treatment Time Speech Therapy - Individual 04105: 12 Swallowing Dysfunction Treatment 06819: 13 Upon discontinuation of Acute Care Speech Therapy Services or patient discharge from the hospital this note represents the current Speech Therapy Discharge Summary * OWEN Benavides - 08/12/2024 3:21 PM EDT Placement Plan Expected Discharge Date: 08/14/2024 Referred Level of Care: IPR Barriers: Medical Readiness & Precertification Current Referrals and Status 1. [facility]-accepted IPR started precertification today. BULMARO Allen Materials Handler * Jazzy Aguiar - 08/12/2024 10:46 AM [...] sinkside Mobility Assessment/Intervention: Supine to Sit Mobility [place] Level: Supine->Sit: moderate assist (50% patient effort) [...] positioning Transfer Assessment/Intervention: Sit to Stand Transfer [place] Level: Sit->Stand: maximum assist (25% patient effort) [...] maintaining upright posture Stand to Sit Transfer [place] Level: Stand->Sit: maximum assist (25% patient effort) Physical Assist: Stand->Sit: 2 person assist Assistive Device: Stand->Sit: gait belt, hand held assist Skilled Rationale: Verbal cues, Tactile cues, Hand placement, Positioning, Controlled descent for sitting Skilled Intervention/Details: Stand->Sit: Cues for positioning with recliner and using BUEs to help with appropriate positoining of hips in chair Bed-Chair Transfer [place] Level: Bed<->Chair: maximum assist (25% patient effort) [...] speech and L hemiplegia. She presented to [facility] and was seen on Telestroke, NIHSS [...] goal TF volume. Pt last assessed by SINGLE ENDING MACHINE OPERATOR 08/08 with recommendations for NPO. [...] chips. Will also increase free water flushes. SINGLE ENDING MACHINE OPERATOR to see pt tomorrow. Nutrition Focused Physical Exam: Nutrition Focused Physical Exam Completed?: completed Subcutaneous Fat Loss: Orbital Region (Orbital Fat Pads): WDL Cheek Region (Buccal Fat Pads): WDL Upper Arm Region (Triceps): WDL Thoracic and Lumbar Region (Ribs, Lower Back, Midaxillary Line): WDL Muscle Wasting: Confucianist Region (Temporalis Muscle): deferred (lac over eyebrow) [...] kg (172 lb) 06/26/24 78.9 kg (174 lb)-[facility] 05/31/24 79 kg (174 lb 2.6 oz)-[facility] 11/28/23 80.6 kg (177 lb 9.6 oz)-[facility] 09/29/23 84 kg (185 lb)-[facility] meds reviewed: Scheduled: Reviewed, includes insulin, [...] Needs: Weight Used: 61 kg (IBW) EEN: 2093-2556 kcal/day (25-30 kcal/kg) EPN: 73-92 g/day (1.2-1.5 g/kg) EFN: 1830 mL/day (30 mL/kg) or per primary team Malnutrition Statement: Does the patient meet criteria for malnutrition: No *Based on [employer] and ASPEN Indicators to Diagnose Malnutrition (AAIM) criteria (2012) Tianna Murray RD, LD, [facility] Pager #[phone] * Katie Ramos, PT - 08/12/2024 10:22 [...] standing. Mobility Assessment/Intervention: Supine to Sit Mobility [place] Level: Supine->Sit: moderate assist (50% patient effort) Physical Assist: Supine->Sit: 2 person assist Bed Features/Set-up: Supine->Sit: Head of bed elevated Skilled Rationale: Verbal cues, Tactile cues, Hand placement, Technique of activity Skilled Intervention/Details: Supine->Sit: verbal/tactile cues for instruction on transfer technique and mod A x 2 for LE and trunk management. Transfer Assessment/Intervention: Sit to Stand Transfer [place] Level: Sit->Stand: maximum assist (25% patient effort) Physical Assist: Sit->Stand: 2 person assist Assistive Device: Sit->Stand: gait belt Skilled Rationale: Verbal cues, Tactile cues, Hand placement, Technique of activity Skilled Intervention/Details: Sit->Stand: x2 trials with verbal/tactile cues for instruction on transfer technique, hand placement, and blocking left knee. Bed-Chair Transfer [place] Level: Bed<->Chair: maximum assist (25% patient effort) Physical Assist: Bed<->Chair: 2 person assist Assistive Device: Bed<->Chair: gait belt Skilled Rationale: Verbal cues, Tactile cues, Hand placement, Technique of activity Skilled Intervention/Details: Bed<->Chair: x1 trial from EOB to chair to the right. Verbal/tactile cues for instruction on transfer technqiue, blocking left knee. Outcome Score(s): CURRENT [facility] Basic Mobility Inpatient Short Form Turning over in bed: 2 - A Lot of Assistance Moving from lying on back to sittin - Total Assistance Moving to and from bed to chair: 1 - Total Assistance Sitting/standing from chair: 1 - Total Assistance Walk in hospital room: 1 - Total Assistance Climbing 3-5 steps with a railin - Total Assistance CURRENT [facility] Mobility Raw Score: 7 CURRENT [facility] Mobility Functional Limitation: 92.36% Impaired in Basic [...] Physical Therapy Discharge Summary. * Radha Gr APRN-CHILD CARE SPECIALIST - 08/11/2024 7:15 AM EDT NEUROVASCULAR STROKE SERVICE Daily Progress Note IDENTIFYING INFORMATION Lindsay Acuna MR# [id number] 08/11/2024 HISTORY OF PRESENT ILLNESS Lindsay Acuna is a 78 y.o. female with PMH significant for CAD, HTN, HLD, T2DM, Afib (on Eliquis, although patient reports she has not been taking it) who presents with L hemiplegia, slurred speech. LKW 0915 on 08/02, later found down with slurred speech and L hemiplegia. She presented to [facility] and was seen on Telestroke, NIHSS [...] today 08/11 -Rate controlled on metoprolol Dysphagia: -SINGLE ENDING MACHINE OPERATOR following -NPO, DHT + TF [...] Lindsay Acuna will likely be discharged to [facility] when medically ready Radha Gr, SIX HORSE HITCH DRIVER-CHILD CARE SPECIALIST 08/11/2024 10:17 AM VITAL SIGNS Temp: [97.2 [...] for specific therapeutic recommendations, please see the pollution control engineer report of the speech pathologist. Examination performed [...] and neurological examinations as recorded by the BUFFET MANAGER repeated and confirmed. I have personally reviewed [...] tooth. Blood cx unremarkable. * Radha Gr, SIX HORSE HITCH DRIVER-CHILD CARE SPECIALIST - 08/10/2024 7:14 AM EDT NEUROVASCULAR STROKE SERVICE Daily Progress Note IDENTIFYING INFORMATION Lindsay Acuna MR# [id number] 08/10/2024 HISTORY OF PRESENT ILLNESS Lindsay Acuna is a 78 y.o. female with PMH significant for CAD, HTN, HLD, T2DM, Afib (on Eliquis, although patient reports she has not been taking it) who presents with L hemiplegia, slurred speech. LKW 0915 on 08/02, later found down with slurred speech and L hemiplegia. She presented to [facility] and was seen on Telestroke, NIHSS [...] revascularization. INTERVAL HISTORY 08/05: Transfer to [place] [facility] tomorrow 08/06: Failed MBS. Increased [...] as above -Rate controlled on metoprolol Dysphagia: -SINGLE ENDING MACHINE OPERATOR following -NPO, DHT + TF [...] Lindsay Acuna will likely be discharged to [facility] when medically ready Radha Gr, JASIEL-CHILD CARE SPECIALIST 08/10/2024 7:14 AM VITAL SIGNS Temp: [97.4 [...] for specific therapeutic recommendations, please see the pollution control engineer report of the speech pathologist. Examination performed [...] skin and external bumper. - If used rodent exterminator, PEG should be changed every 3-6 months [...] Hepatology, and Nutrition Clinical Fellow PGY-4 Pager: [phone] For follow up questions regarding this patient 7am to 5pm, contact the IBD consults fellow or DAHLIA on QGenda. [facility]--> Internal Medicine--> Gastroenterology, Hepatology, & Nutrition--> IBD Consult Service Fel Day OR IBD Consult Service DAHLIA Day For urgent/stat calls or new consults 5pm to 7am or all day on the weekend, please page the on-callGI fellow on QGenda. [facility]--> Internal Medicine--> Gastroenterology, Hepatology, & [...] contact CM for assistance as needed (8:00am-4:30pm) BAS: [phone] Maria: [phone] Johan: [phone] Ross: [phone] For Social Work assistance for the weekend, please contact for assistance as needed (8:00am - 4:30pm): BASH: [phone] Maria: [phone] Johan: [phone] Ross: [phone] * Radha Gr APRN-CHILD CARE SPECIALIST - 08/09/2024 8:07 AM EDT NEUROVASCULAR STROKE SERVICE Daily Progress Note IDENTIFYING INFORMATION Lindsay Acuna MR# [id number] 08/09/2024 HISTORY OF PRESENT ILLNESS Lindsay Acuna is a 78 y.o. female with PMH significant for CAD, HTN, HLD, T2DM, Afib (on Eliquis, although patient reports she has not been taking it) who presents with L hemiplegia, slurred speech. LKW 0915 on 3/21, later found down with slurred speech and L hemiplegia. She presented to [facility] and was seen on Telestroke, NIHSS [...] as above -Rate controlled on metoprolol Dysphagia: -SINGLE ENDING MACHINE OPERATOR following -NPO, DHT + TF [...] Lindsay Acuna will likely be discharged to [facility] when medically ready Radha Gr APRN-CHILD CARE SPECIALIST 08/09/2024 8:07 AM VITAL SIGNS Temp: [97.3 [...] for specific therapeutic recommendations, please see the pollution control engineer report of the speech pathologist. Examination performed [...] on the below outcome measures/assessment score(s) and SINGLE ENDING MACHINE OPERATOR clinicaljudgment, discharge destination recommendation is: Inpatient Rehab Facility Acute SINGLE ENDING MACHINE OPERATOR Outcomes Tracking Communicate basic wants [...] pressions and introduction to effortful swallow exercise. SINGLE ENDING MACHINE OPERATOR provided education regarding recommendation of [...] constraints (transport arrived for pt's CT scan). SINGLE ENDING MACHINE OPERATOR will follow as able. Subjective information: Patient upright in chair, at bedside. Agreeable to SINGLE ENDING MACHINE OPERATOR session. Pain: General Pain Documentation [...] room air Flow (L/min): [3] 3 Acute SINGLE ENDING MACHINE OPERATOR Goals Plan of Care by [...] phsyiology, risks of aspiration pneumonia). Educated regarding SINGLE ENDING MACHINE OPERATOR role in swallow rehab and future POC Plan for next session: 08/06: cog tx and dysphagia exercises SINGLE ENDING MACHINE OPERATOR Outcomes: FOIS: 1 Speech Language Pathologist: RIKI Penaloza Time In: 1310 Time Out: 1330 Total Visit Time: 20 minutes Total Treatment Time (skilled, billable minutes): 20 minutes Non-billable assistance during session: NA Assisted by during session: NA PPE used during patient interaction: gloves Patient location/status at end of session: chair Patient alarms at end of session: none altered Needs in reach. SINGLE ENDING MACHINE OPERATOR Evaluation and Treatment Time Swallowing Dysfunction Treatment 18412: 20 Upon discontinuation of Acute Care Speech [...] feedback Mobility Assessment/Intervention: Supine to Sit Mobility [place] Level: Supine->Sit: moderate assist (50% patient effort) Physical Assist: Supine->Sit: 2 person assist Bed Features/Set-up: Supine->Sit: Use of bed rail, Head of bed elevated Skilled Rationale: Sequencing, Verbal cues, Hand placement, Positioning Skilled Intervention/Details: Supine->Sit: increased time/cues Transfer Assessment/Intervention: Sit to Stand Transfer [place] Level: Sit->Stand: moderate assist (50% patient effort) Physical Assist: Sit->Stand: 2 person assist Assistive Device: Sit->Stand: gait belt, hand held assist Skilled Rationale: Positioning, Sequencing, Hand placement, Verbal cues Skilled Intervention/Details: Sit->Stand: Pt educated in sit to stand transfers x 2 attempts, one from EOB and one from chair Bed-Chair Transfer [place] Level: Bed<->Chair: maximum assist (25% patient effort) [...] Mobility Assessment/Intervention: Stairs Assessment/Intervention: Outcome Score(s): CURRENT [facility] Basic Mobility Inpatient Short Form Turning over in bed: 2 - A Lot of Assistance Moving from lying on back to sittin - A Lot of Assistance Moving to and from bed to chair: 1 - Total Assistance Sitting/standing from chair: 1 - Total Assistance Walk in hospital room: 1 - Total Assistance Climbing 3-5 steps with a railin - Total Assistance CURRENT [facility] Mobility Raw Score: 8 CURRENT [facility] Mobility Functional Limitation: 86.62% Impaired in Basic [...] positioning Mobility Assessment/Intervention: Supine to Sit Mobility [place] Level: Supine->Sit: moderate assist (50% patient effort) [...] positioning Transfer Assessment/Intervention: Sit to Stand Transfer [place] Level: Sit->Stand: moderate assist (50% patient effort) Physical Assist: Sit->Stand: 2 person assist Assistive Device: Sit->Stand: gait belt, hand held assist Skilled Rationale: Verbal cues, Tactile cues, Hand placement, Positioning, Technique of activity Skilled Intervention/Details: Sit->Stand: x1 from EOB, x1 from recliner. Cues for technique and assuming an upright posture once standing Stand to Sit Transfer [place] Level: Stand->Sit: moderate assist (50% patient effort) Physical Assist: Stand->Sit: 2 person assist Assistive Device: Stand->Sit: gait belt, hand held assist Skilled Rationale: Verbal cues, Tactile cues, Hand placement, Positioning, Controlled descent for sitting Skilled Intervention/Details: Stand->Sit: Cues for positioning with recliner and using arms to help with controlled descent into chair Bed-Chair Transfer [place] Level: Bed<->Chair: maximum assist (25% patient effort) [...] appropriately position with chair. Outcome Score(s): CURRENT -[facility] Daily Activity Inpatient Short Form Putting on/Taking Off Lower Body Clothin - Total Assistance Bathin - A Lot of Assistance Toiletin - Total Assistance Putting on/Taking Off Upper Body Clothin - A Lot of Assistance Groomin - A Lot of Assistance Eatin - Total Assistance CURRENT -[facility] Activity Raw Score: 9 CURRENT -[facility] Activity Functional Limitation/Modifier: 79.59% Currently Impaired [...] Progress Note IDENTIFYING INFORMATION Lindsay Acuna MR# [id number] 08/08/2024 HISTORY OF PRESENT ILLNESS Lindsay Acuna is a 78 y.o. female with PMH significant for CAD, HTN, HLD, T2DM, Afib (on Eliquis, although patient reports she has not been taking it) who presents with L hemiplegia, slurred speech. LKW 0915 on 08/02, later found down with slurred speech and L hemiplegia. She presented to [facility] and was seen on Telestroke, NIHSS [...] as above -Rate controlled on metoprolol Dysphagia: -SINGLE ENDING MACHINE OPERATOR following -NPO, DHT + TF [...] Lindsay Acuna will likely be discharged to [facility] when medically ready Bella Cardenas APRN-CHILD CARE SPECIALIST 08/08/2024 2:53 PM VITAL SIGNS Temp: [97.4 [...] for specific therapeutic recommendations, please see the pollution control engineer report of the speech pathologist. Examination performed [...] availability Current Referrals and Status 1. [facility] CCM notified LUCIO student confirming after call with Patient's daughter that [facility] of choice. Facility reserved. AVS/DAVE [...] and patient's spouse are agreeable to [facility] as facility of choice, and Gisela is agreeable to [facility] as well. Updated LUCIO student. Simin Resendez RN, BSN Clinical Youth Pastor [facility] * Chela Hannon - 08/07/2024 2:08 PM EDT Placement Plan LANDING WORKER met with Patient and spouse at bedside to discuss facility choice. Spouse mentioned that [facility] was first choice, though LANDING WORKER provided update that [facility] could not accept after reviewing. LANDING WORKER reviewed other IPR options with Spouse, who reports that [facility] facility of choice. Spouse discussed with daughter Gisela via phone, who is in agreement but requestsa return call. LANDING WORKER notified CCM. Chela Snyder, Social Work Student Available by Secure Chat Cosigned by OWEN Keller at 08/07/2024 2:11 PM EDT * Bella Cardenas, SIX HORSE HITCH DRIVER-CHILD CARE SPECIALIST - 08/07/2024 6:54 AM EDT NEUROVASCULAR STROKE SERVICE Daily Progress Note IDENTIFYING INFORMATION Lindsay Acuna MR# [id number] 08/07/2024 HISTORY OF PRESENT ILLNESS Lindsay Acuna is a 78 y.o. female with PMH significant for CAD, HTN, HLD, T2DM, Afib (on Eliquis, although patient reports she has not been taking it) who presents with L hemiplegia, slurred speech. LKW 0915 on 08/02, later found down with slurred speech and L hemiplegia. She presented to [facility] and was seen on Telestroke, NIHSS [...] revascularization. INTERVAL HISTORY 08/05: Transfer [place] [facility] tomorrow 08/06: Failed MBS. Increased [...] as above -Rate controlled on metoprolol Dysphagia: -SINGLE ENDING MACHINE OPERATOR following -NPO, DHT + TF [...] Lindsay Acuna will likely be discharged to [facility] when medically ready Bella Cardenas, SIX HORSE HITCH DRIVER-CHILD CARE SPECIALIST 08/07/2024 3:06 PM VITAL SIGNS Temp: [97.5 [...] for specific therapeutic recommendations, please see the pollution control engineer report of the speech pathologist. Examination performed [...] authorization, transportation Current Referrals and Status 1. [facility]: Available 2. [facility]: Available 3. [facility]: Available (pending PEG or diet and their MD requested aspirin started before discharge) 4. [facility]: Available 5. [facility]: Unavailable, out of network 6. [facility] Inpatient Rehab: Unavailable, Incorrect Level of Care 7. [facility] IPR: sent Met with patient and patient's spouse, Ike, at bedside to provide choice list. Ike called patient's daughter, Gisela Acuna, to discuss as well. Gisela requested information on private pay at [facility], messaged [facility] liaison and then provided information to Gisela. Gisela requested CM sendreferral to [facility] IPR. Plan for family to review choice list tonight, CM/SW team will update patient and family regarding [facility] IPR response tomorrow morning. This CM's contact information provided to Ike Acuna and Gisela Acuna for any further questions. Simin Resendez RN, BSN Clinical Youth Pastor [facility] * Florinda Velasquez, PT - 08/06/2024 [...] minutes Mobility Assessment/Intervention: Supine to Sit Mobility [place] Level: Supine->Sit: moderate assist (50% patient effort) Bed Features/Set-up: Supine->Sit: Head of bed elevated, Use of bed rail Skilled Rationale: Positioning, Sequencing Skilled Intervention/Details: Supine->Sit: step by step cues for sequencingg Transfer Assessment/Intervention: Sit to Stand Transfer [place] Level: Sit->Stand: moderate assist (50% patient effort) [...] left UE during transitional movements Bed-Chair Transfer [place] Level: Bed<->Chair: moderate assist (50% patient effort) Physical Assist: Bed<->Chair: 2 person assist Assistive Device: Bed<->Chair: gait belt, hand held assist Skilled Rationale: Positioning, Hand placement, Verbal cues, Sequencing Skilled Intervention/Details: Bed<->Chair: Pt educated in bed to BSC commode transfer x 2-3 steps with cues for LE sequencing, left LE weakness requiring intermittent blocking Gait/Functional Mobility Assessment/Intervention: Gait Assessment [place] Level: Gait: (mod/max) Physical Assist: Gait: 2 [...] prevent buckling. Stairs Assessment/Intervention: Outcome Score(s): CURRENT [facility] Basic Mobility Inpatient Short Form Turning over [...] with a railin - Total Assistance CURRENT [facility] Mobility Raw Score: 9 CURRENT [facility] Mobility Functional Limitation: 81.38% Impaired in Basic [...] Physical Therapy Discharge Summary. * Nimesh Balderrama, [facility] - 08/06/2024 1:42 PM EDT Department of Pharmacy Admission Medication Reconciliation Note Patient: Lindsay Acuna Room/Bed: 1043/A I have reviewed the patient's home medication list with the following sources Dispense Report. The home medication list status is: complete. All changes to the home medication list have been updated in IS. Updated CORPORATE AUDITOR Med List: Prior to Admission Medications Prescriptions [...] any further questions. Name: Nimesh Balderrama [facility] Phone #: [phone] Date/Time: 08/06/2024 1:42 PM Time Spent: 10 [...] noted Mobility Assessment/Intervention: Supine to Sit Mobility [place] Level: Supine->Sit: moderate assist (50% patient effort) [...] completion. Transfer Assessment/Intervention: Sit to Stand Transfer [place] Level: Sit->Stand: (x 1 trial from EOB [...] and kyphotic posture. Stand to Sit Transfer [place] Level: Stand->Sit: moderate assist (50% patient effort) Assistive Device: Stand->Sit: gait belt (Arm and arm assist.) Skilled Rationale: Cues for increased safety, Initiation and execution of task, Technique of activity, Controlled descent for sitting, Ischial assist, Arm in arm, Tactile cues, Verbal cues, Hand placement, Sequencing, Positioning Bed-Chair Transfer [place] Level: Bed<->Chair: moderate assist (50% patient effort) [...] with left LE). Functional Mobility: Functional Mobility [place] Level: Functional Mobility/Gait: (Moderate-max assistance) Physical Assist: [...] overall decreased insight/awareness intodeficits. Outcome Score(s): CURRENT [facility] Daily Activity Inpatient Short Form Putting on/Taking Off Lower Body Clothin - Total Assistance Bathin - A Lot of Assistance Toiletin - Total Assistance Putting on/Taking Off Upper Body Clothin - A Lot of Assistance Groomin - A Lot of Assistance Eatin - Total Assistance ([place].) CURRENT [facility] Activity Raw Score: 9 CURRENT [facility] Activity Functional Limitation/Modifier: 79.59% Currently Impaired in [...] Occupational Therapy Discharge Summary. * Taran Traore APRN-CHILD CARE SPECIALIST - 08/06/2024 7:49 AM EDT NEUROVASCULAR STROKE SERVICE Daily Progress Note IDENTIFYING INFORMATION Lindsay Acuna MR# [id number] 08/06/2024 HISTORY OF PRESENT ILLNESS Lindsay Acuna is a 78 y.o. female with PMH significant for CAD, HTN, HLD, T2DM, Afib (on Eliquis, although patient reports she has not been taking it) who presents with L hemiplegia, slurred speech. LKW 0915 on 08/02, later found down with slurred speech and L hemiplegia. She presented to [facility] and was seen on Telestroke, NIHSS [...] HISTORY 08/05: Transfer to [place]. MBS tomorrow 08/06: Failed MBS. Increased lopressor. [...] as above -Rate controlled on metoprolol Dysphagia: -SINGLE ENDING MACHINE OPERATOR following -NPO, DHT + TF [...] Lindsay Acuna will likely be discharged to [facility] when medically ready Taran Traore, JASIEL-CHILD CARE SPECIALIST 08/06/2024 1:43 PM VITAL SIGNS Temp: [96.5 [...] for specific therapeutic recommendations, please see the pollution control engineer report of the speech pathologist. Examination performed [...] Progress Note IDENTIFYING INFORMATION Lindsay Acuna MR# [id number] 08/05/2024 HISTORY OF PRESENT ILLNESS Lindsay Acuna is a 78 y.o. female with PMH significant for CAD, HTN, HLD, T2DM, Afib (on Eliquis, although patient reports she has not been taking it) who presents with L hemiplegia, slurred speech. LKW 0915 on 08/02, later found down with slurred speech and L hemiplegia. She presented to [facility] and was seen on Telestroke, NIHSS [...] 2b revascularization. INTERVAL HISTORY 08/05: Transfer to [facility] tomorrow PHYSICAL EXAM Gen: awake, alert, [...] as above -Rate controlled on metoprolol Dysphagia: -SINGLE ENDING MACHINE OPERATOR following -NPO, DHT + TF -MBS tomorrow HLD, POA: -Atorvastatin 40 mg daily CAD, POA: -Hold ASA for 7 days due to ICH T2DM, POA: -SSI regular + accuchecks CKD Stage 3A, POA: Baseline Cr 1.3 -Avoid nephrotoxins, monitor Hypothyroidism, POA: -Continue home levothyroxine 75 mcg daily Disposition: Lindsay Acuna will likely be discharged to [facility] when medically ready Taran Traore APRN-CHILD CARE SPECIALIST 08/05/2024 2:19 PM VITAL SIGNS Temp: [97.8 [...] Per NG tube Q4H * Queta Gardner, SINGLE ENDING MACHINE OPERATOR - 08/05/2024 11:49 AM EDT Acute [...] on the below outcome measures/assessment score(s), and SINGLE ENDING MACHINE OPERATOR clinical judgment, discharge destination recommendation [...] Impaired cognitive skills limiting saf ety/insight Acute SINGLE ENDING MACHINE OPERATOR Outcomes Tracking Communicate basic wants [...] oropharyngeal swallow function to most appropriately guide SINGLE ENDING MACHINE OPERATOR plan of care. Of note, [...] Currentdeficits impact her safety and independence. Ongoing SINGLE ENDING MACHINE OPERATOR services are warranted. Subjective information: [...] O2 Device: room air (08/05 0830) Acute SINGLE ENDING MACHINE OPERATOR Goals Plan of Care by Queta Gardner SINGLE ENDING MACHINE OPERATOR at 08/05/2024 11:49 AM Version [...] oropharyngeal swallow function to most appropriately guide SINGLE ENDING MACHINE OPERATOR plan of care Outcome: Ongoing Problem: SINGLE ENDING MACHINE OPERATOR - Cognition Goal: Orientation Log [...] better assess deficits and most appropriately guide SINGLE ENDING MACHINE OPERATOR plan of care Outcome: Met [...] for next session: 08/05: Good candidate; [facility] SINGLE ENDING MACHINE OPERATOR Outcomes: SINGLE ENDING MACHINE OPERATOR Outcomes / Standardized Measures Score [...] wrist restraints, RN aware Needs in reach. SINGLE ENDING MACHINE OPERATOR Evaluation and Treatment Time Speech Therapy - Individual 28138: 8 Swallowing Dysfunction Treatment 38331: 9 Upon discontinuation of Acute Care Speech Therapy Services or patient discharge from the hospital this note represents the current Speech Therapy Discharge Summary * Chela Hannon - 08/05/2024 10:37 AM EDT Placement Plan Expected Discharge Date: TBD Referred Level of Care: IPR Barriers: medical stability, bed availability Current Referrals and Status 1. [facility]- sent; denied (Patient is OON) 2. [facility]- sent 3. [facility]- sent 4. [facility]- sent 5. [facility]- sent 6. [facility] LANDING WORKER met with Patient and Spouse at bedside to discuss discharge planning. Patient and spouse were agreeable to SW visit. LANDING WORKER discussed therapy recommendations with Spouse for Patient to go to [facility] at discharge. Spouse is agreeable to a referral being sent to [facility]. Referral sent. Spouse requested to speak to SW about assessing Patient for dementia. LANDING WORKER and bedside RN encouragedSpouse to discuss with Patient's outpatient provider. Chela Snyder, Social Work Student Available by Secure Chat Cosigned by OWEN Keller at 08/05/2024 11:22 AM EDT * Savana Leung RD - 08/05/2024 10:10 AM EDT NUTRITION ASSESSMENT Nutrition Recommendations and Plan of Care: 1. Diet: NPO. Advancement per team/SINGLE ENDING MACHINE OPERATOR recommendation 2. Ordered TF: Glucerna [...] time. Per team, pt failed bedside swallow. SINGLE ENDING MACHINE OPERATOR consulted for swallow eval. Past [...] kg (172 lb) 06/26/24 78.9 kg (174 lb)-[facility] 05/31/24 79 kg (174 lb 2.6 oz)-[facility] 11/28/23 80.6 kg (177 lb 9.6 oz)-[facility] 09/29/23 84 kg (185 lb)-[facility] Pt without significant weight change CORPORATE AUDITOR. Tmax: 97.8*F BP: (!) 173/94 Pulse (Heart [...] proximal second portion of the duodenum. BM: CORPORATE AUDITOR Urine: 725mL Skin: Raghu Score: 13 Active Wounds: Wound Sheath Site 08/02/24 1500 Right Radial (3) Wound Abrasion 08/02/24 2109 Left;Upper Face (3) Edema- None Estimated Nutrition Needs: Based on IBW (61.4kg) Estimated Kcals Needs: 6645-5927 kcals (25-30kcals/kg) Estimated Pro Needs: 74-92g Pro (1.2-1.5g/kg) Estimated Fluid Needs: Per MD Nutrition Focused Physical Exam Completed?: completed Subcutaneous Fat Loss: Orbital Region (Orbital Fat Pads): WDL Cheek Region (Buccal Fat Pads): WDL Upper Arm Region (Triceps): WDL Thoracic and Lumbar Region (Ribs, Lower Back, Midaxillary Line): WDL Muscle Wasting: Confucianist Region (Temporalis Muscle): deferred (lac over eyebrow) [...] (AAIM) criteria (2012) ELVIRA Ho, RD, LD, [facility] Pager: [phone] * Rashad Rg MD - 08/05/2024 9:42 [...] critical care time 31min. * Shanna Russ APRN-CHILD CARE SPECIALIST - 08/05/2024 7:20 AM EDT NEUROCRITICAL CARE [...] Visual richards intact to confrontation. PERRL. 3mm director of quality control III, IV and : EOMI. No nystagmus. [...] Issues O2 Sat (%): 95 % (08/05 0600) O2 Device: room air (08/05 599) Flow (L/min): 4 (08/05 1999) - Goal SpO2 >92%; wean FiO2 as tolerated - HOB > 30 degrees, aggressive pulm edema, OOB as toleratd - [id number], encourage pulmonary toileting Cards: Essential HTN HLD [...] TUBE FEEDING with meds (per DHT) - Raysal Swallow Screening Result: failed=NPO Bowel regimen: - Last Bowel Movement: (prior to admission) - Senna 17.2 mg Q12H, miralax BID, suppository PRN Stress ulcer prophylaxis: - none Dysphagia - DHT placed - SINGLE ENDING MACHINE OPERATOR following; NPO continue following, on [...] Mobility [x] Family Engagement Primary Emergency Contact: AcunaIke, Last updated: 08/05 at bedside updated. [x] Prophylaxis VAP: N/A Stress ulcer prophylaxis: not indicated DVT: subcutaneous heparin [x] Lines [place]: n/a Gallegos: remove Rectal tube: n/a Enteral [...] the assigned neurocritical care provider (resident, fellow, BUFFET MANAGER, orPA) or page/call the corresponding number below NCC1 (Beds [phone]): [facility] # [phone], pager #[phone] NCC2 (Beds 3410-3383, 12 Nando, and overflow): [facility] #: [phone], pager #[phone] * Florinda Velasquez, PT - 08/04/2024 1:36 [...] noted Mobility Assessment: Supine to Sit Mobility [place] Level: Supine->Sit: moderate assist (50% patient effort) [...] EOB Transfer Assessment: Sit to Stand Transfer [place] Level: Sit->Stand: moderate assist (50% patient effort) Physical Assist: Sit->Stand: 2 person assist Assistive Device: Sit->Stand: gait belt, hand held assist Skilled Rationale: Positioning, Sequencing, Hand placement, Verbal cues Skilled Intervention/Details: Sit->Stand: x 1 from EOB Bed-Chair Transfer [place] Level: Bed<->Chair: moderate assist (50% patient effort) [...] with a railin - Total Assistance CURRENT [facility] Mobility Raw Score: 10 CURRENT [facility] Mobility Functional Limitation: 76.75% Impaired in Basic [...] Complexity: Moderate Time In: 918 Time Out: 37 Total Visit Time: 18 minutes Total Treatment [...] Edema: Mobility Assessment: Supine to Sit Mobility [place] Level: Supine->Sit: moderate assist (50% patient effort) Physical Assist: Supine->Sit: 2 person assist Bed Features/Set-up: Supine->Sit: Head of bed elevated Skilled Rationale: Positioning, Hand placement, Verbal cues, Technique of activity Transfer Assessment: Sit to Stand Transfer [place] Level: Sit->Stand: moderate assist (50% patient effort) Physical Assist: Sit->Stand: 2 person assist Assistive Device: Sit->Stand: gait belt, hand held assist Skilled Rationale: Positioning, Hand placement, Verbal cues, Technique of activity Stand to Sit Transfer [place] Level: Stand->Sit: moderate assist (50% patient effort) Physical Assist: Stand->Sit: 2 person assist Assistive Device: Stand->Sit: hand held assist Skilled Rationale: Positioning, Hand placement, Verbal cues, Arm in arm, Controlled descent for sitting Bed-Chair Transfer [place] Level: Bed<->Chair: moderate assist (50% patient effort) Physical Assist: Bed<->Chair: 2 person assist Assistive Device: Bed<->Chair: gait belt, hand held assist Skilled Rationale: Arm in arm, Patellar block, Technique of activity Skilled Intervention/Details: Bed<->Chair: LLE weakness/blocking of patella with transfer, pivot to right Functional Mobility: Outcome Score(s): CURRENT [facility] Daily Activity Inpatient Short Form Putting on/Taking Off Lower Body Clothin - A Lot of Assistance Bathin - A Lot of Assistance Toiletin - Total Assistance Putting on/Taking Off Upper Body Clothin - A Lot of Assistance Groomin - A Little Assistance Eatin - Total Assistance CURRENT [facility] Activity Raw Score: 11 CURRENT [facility] Activity Functional Limitation/Modifier: 70.42% Currently Impaired in [...] assessment and plan as documented by the BUFFET MANAGER with my changes/additions added. Patient is a [...] ICH x 7 days - Statin - PT/OT/SINGLE ENDING MACHINE OPERATOR evaluation Pulmonary: No acute issues, [...] and other supportive care as per the BUFFET MANAGER note from the same day This patient [...] to the [facility] today [facility], [facility] and other care providers. Management of the above was performed. My time managing this critically ill patient included review of interval history, laboratories, radiology and cons ultation reports; performing a physical examination; discussing the patient with the multi-disciplinary team and managing life sustaining therapies to prevent imminent clinical deterioration. Richard Mejia MD Neurocritical Care Attending * Balbir Mccoy, SIX HORSE HITCH DRIVER-[facility] - 08/04/2024 7:44 AM EDT NEUROCRITICAL [...] conversion of stroke. Failed swallow, place DHT. 3/22: delirium overnight. CTH stable. SBP <160. Start [...] Visual richards intact to confrontation. PERRL. 3mm director of quality control III, IV and : EOMI. No nystagmus. [...] SpO2 >92%; wean FiO2 as tolerated - [id number], encourage pulmonary toileting Cards: Essential HTN HLD [...] TUBE FEEDING with meds (per DHT) - Raysal Swallow Screening Result: failed=NPO Bowel regimen: - Last Bowel Movement: (prior to admission) - Senna 17.2 mg Q12H, miralax at bedtime Stress ulcer prophylaxis: - none Dysphagia - DHT placed - SINGLE ENDING MACHINE OPERATOR following - Tube feed: Vital [...] not indicated DVT: subcutaneous heparin [x] Lines [place]: n/a Gallegos: inserted 08/02, (indication: strict I&O [...] the assigned neurocritical care provider (resident, fellow, BUFFET MANAGER, orPA) or page/call the corresponding number below NCC1 (Beds 5754-0030): [facility] # [phone], pager #[phone] NCC2 (Beds 9788-9193, 12 [address], and overflow): [facility] #: [phone], pager #[phone] * Rafael Garcia MD - 08/03/2024 2:16 PM EDT NEUROVASCULAR Consult Daily Progress Note IDENTIFYING INFORMATION Lindsay Acuna MR# [id number] 08/03/2024 HISTORY OF PRESENT ILLNESS Lindsay Acuna is a 78 y.o. female with PMH significant for CAD, HTN, HLD, T2DM, Afib (on Eliquis, although patient reports she has not been taking it) who presents with L hemiplegia, slurred speech. She was last seen normal by her at 0915, later found down with slurred speech and L hemiplegia. She presented to [facility] and was seen on Telestroke, NIHSS [...] speech and L hemiplegia. She presented to [facility] and was seen on Telestroke, NIHSS [...] workup. Delbert Kasper MD * Nohelia Oconnell, SINGLE ENDING MACHINE OPERATOR - 08/03/2024 12:09 PM EDT Acute Care SINGLE ENDING MACHINE OPERATOR Speech/Language/Cognitive Evaluation Best mode of Communication: spoken language (regular speech) Discharge Recommendations: Based on the below outcome measures/assessment score(s) and SINGLE ENDING MACHINE OPERATOR clinicaljudgment, discharge destination recommendation is: (Skilled speech therapy services at next level of care) Barriers to discharge home: Cognitive impairments that impact safety and independence Supporting factors for discharge setting: Impaired swallow function limiting nutritional status andsafety with oral intake Acute SINGLE ENDING MACHINE OPERATOR Outcomes Tracking Communicate basic wants [...] speech and L hemiplegia. She presented to [facility] and was seen on Telestroke,NIHSS 12. [...] 0 Asthenia (A): 0 Strain (S): 0 SINGLE ENDING MACHINE OPERATOR Outcomes / Standardized Measures Score [...] unable to respond. Total Score: 12 Acute SINGLE ENDING MACHINE OPERATOR Goals Plan of Care by RIKI Hayes at 08/03/2024 11:25 AM Version 1 of 1 Problem: Dysphagia Goal: Ongoing Assessment - Patient will participate in ongoing assessment by accepting various PO consistency trials with appropriate participation/oral acceptance and no significant respiratory complications to determine readiness for diet advancement Outcome: Ongoing Problem: SINGLE ENDING MACHINE OPERATOR - Cognition Goal: Orientation Log [...] better assess deficits and most appropriately guide SINGLE ENDING MACHINE OPERATOR plan of care Outcome: Ongoing [...] of session: bed alarm Needs in reach. SINGLE ENDING MACHINE OPERATOR Evaluation and Treatment Time Speech Eval - Sound Production W/Lang Comp and Exp 45186: 11 Swallowing Eval 02977: 10 Upon discontinuation of Acute Care Speech [...] on the below outcome measures/assessment score(s) and SINGLE ENDING MACHINE OPERATOR clinicaljudgment, discharge destination recommendation is: Deferred to PT/OT recomendations related to mobility Current therapy frequency recommendation in acute care: Swallow Therapy Frequency: 5 times a week Acute SINGLE ENDING MACHINE OPERATOR Outcomes Tracking Communicate basic wants [...] speech and L hemiplegia. She presented to [facility] and was seen on Telestroke,NIHSS 12. 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 Prior SINGLE ENDING MACHINE OPERATOR history: No prior speech history [...] Right arm Lying 93 % room air 03/22/25 1100 109 Monitor 18 112/55 79 mmHg [...] and Liquids Trialed Modality Amount Ice Teaspoon, SINGLE ENDING MACHINE OPERATOR-fed 3x Thin Teaspoon 3x Oral [...] Patient presents with presumed pharyngeal phase impairments. Raysal Swallow Screen: (administered by: RN) Tabitha Swallow Screening Screening Exclusion Criteria: none, continue with Raysal Swallow Screening Cognitive Screen: Orientation: able to [...] Ok for ice chips with RN supervision. SINGLE ENDING MACHINE OPERATOR will continue to follow for ongoing dysphagia management. Patient Education/Instruction Learners: Patient Education provided: Dysphagia recommendation risk: benefit analysis, Role of this discipline Teaching method: Verbal Education/Instruction Learner response: Needs review Learning preferences: Auditory Learning considerations: Cognition Plan for next session: 08/03: Good Prognosis, ongoing dysphagia management to determine readiness for diet advancement vs instrumental. Acute SINGLE ENDING MACHINE OPERATOR Goals Plan of Care by RIKI Hayes at 08/03/2024 11:25 AM Version 1 of 1 Problem: Dysphagia Goal: Ongoing Assessment - Patient will participate in ongoing assessment by accepting various PO consistency trials with appropriate participation/oral acceptance and no significant respiratory complications to determine readiness for diet advancement Outcome: Ongoing Problem: SINGLE ENDING MACHINE OPERATOR - Cognition Goal: Orientation Log [...] better assess deficits and most appropriately guide SINGLE ENDING MACHINE OPERATOR plan of care Outcome: Ongoing Speech Language Pathologist: RIKI Hayes, BCS-S Board Certified Specialist in Swallowing and Swallowing Disorders Available via [employer] Chat Time In: 1130 Time Out: 1151 Total Visit Time: 21 minutes Total Treatment Time (skilled, billable minutes): 21 minutes Non-billable assistance during session: none Assisted by during session: Patient's PPE used during patient interaction: gloves Patient location/status at end of session: bed with head of bed elevated Patient alarms at end of session: bed alarm Needs in reach. SINGLE ENDING MACHINE OPERATOR Evaluation and Treatment Time Speech Eval - Sound Production W/Lang Comp and Exp 46423: 11 Swallowing Eval 90688: 10 Upon discontinuation of Acute Care Speech Therapy Services or patient discharge from the hospital this note represents the current Speech Therapy Discharge Summary * Richard Mejia MD - 08/03/2024 10:30 AM EDT I have independently seen and examined the patient on 08/03/24. I agree with the history, examination, assessment and plan as documented by the BUFFET MANAGER with my changes/additions added. Patient is a [...] the setting of ICH - Statin - PT/OT/SINGLE ENDING MACHINE OPERATOR evaluation Pulmonary: No acute issues, [...] and other supportive care as per the BUFFET MANAGER note from the same day This patient [...] care services to the patient today [facility], teaching and other care providers. Management [...] with assistance from spouse Care Management Plan LANDING WORKER met with Patient and Spouse at bedside to complete Initial Assessment. They were agreeable to SW visit. Patient was lethargic though able to answer some short questions. Patient consented to Spouse assisting with assessment. Spouse/Patient report that Patient has never completed a HCPOA. They expressed interest, and LANDING WORKER will follow to complete document when Patient is more alert and oriented. Spouse reports himself and Patient live in a ranch-style home with strong supports from their community, including 2 neighbors that have assisted at this time. He noted that himself and Patient recently returned from a visit to [facility] for their anniversary. Spouse reports that their 2 children will be visiting soon. LANDING WORKER explained SW role and offered resources. Spouse [...] Name and Contact information: Ike Acuna P: [phone] Adult Child(jj), List All Adult Children: Yes Name and Contact information: Donnell Acuna P: [phone]; Nathen Acuna P: [phone] Would you like to add additional adult [...] for Advance Care Planning? : Patient Agreeable (LANDING WORKER to follow for HCPOA completion when Patient is more alert and oriented) Medication Management Does the patient have prescription insurance coverage? : Yes Is the patient on Anticoagulation? : Yes (Per chart review, Patient is on anticoagulation but has not been taking it (does not recall the last time she took a dose)) Provider or Clinic that manages Anticoagulation?: (unspecified at this time) [facility] [address] [place], [place] [id number] - [address] [phone] Living Environment and Support System Is the patient from a facility or assisted?: No Living Environment: House ("1 bedroom ranch") Patient Caregiving Responsibilities: Self Patient-identified caregiver/support network: Family, Friends, Neighbors, Temple Who does the patient identify as a [...] themselves at home? : Unable to assess Wire Stripping Machine Operator Does the patient or branch customer service representative express financial concerns? : No Chela Snyder Social Work Student Available by Secure Chat Cosigned by OWEN Keller at 08/03/2024 11:20 AM EDT * Balbir Mccoy, SIX HORSE HITCH DRIVER-CHILD CARE SPECIALIST - 08/03/2024 7:40 AM EDT NEUROCRITICAL CARE [...] Visual richards intact to confrontation. PERRL. 3mm director of quality control III, IV and : EOMI. No nystagmus. [...] SpO2 >92%; wean FiO2 as tolerated - [id number], encourage pulmonary toileting Cards: Essential HTN HLD [...] - Bowel regimen: - Last Bowel Movement: (CORPORATE AUDITOR) - Senna, miralax Stress ulcer prophylaxis: - none Dysphagia - DHT placed - SINGLE ENDING MACHINE OPERATOR following - Tube feed: Vital AF with goal rate 70 mL/h Endo: DM Type 2 Hypothyroid DM - Goal blood glucose 140-180 - home regimen: Glimepiride 2 mg daily, metformin 1000 mg daily - current regimen: Insulin high SSI regular Q6H - A1c: 7.8 Recent Labs 08/02/24184208/02/24 2325 08/03/24 0002 GLUCOSE 210* 161 151 [...] prophylaxis - rationale: post thrombectomy [x] Lines [place]: n/a Gallegos: inserted 08/02, (indication: strict I&O) [...] the assigned neurocritical care provider (resident, fellow, BUFFET MANAGER, orPA) or page/call the corresponding number below NCC1 (Beds 5720-5128): [facility] # [phone], pager #[phone] NCC2 (Beds 3740-6628, [address], and overflow): [facility] #: [phone], pager #[phone] * Nando Caceres MD - 08/03/2024 6:00 [...] nccu Neurosurgery signing off Please page NS2 ([phone]) with questions Complexity. Hypocalcemia - Continue to monitor and replete. Any conditions listed below are present on admission unless otherwise specified. . Cosigned by Prema Ramos MD at 08/03/2024 6:37 PM EDT * Andreas Ga [facility] - 08/02/2024 10:57 PM EDT Department of Pharmacy Renal Documentation Note Patient: Lindsay Acuna Room/Bed: [facility] Assessment and Plan: The patient's most recent [...] any questions, Name: Andreas Ga RPH Phone: [phone] Date/Time: 08/02/2024 10:57 PM * Richard Mejia MD - 08/02/2024 6:01 PM EDT I have independently seen and examined the patient on 08/02/24. I agree with the history, examination, assessment and plan as documented by the BUFFET MANAGER with my changes/additions added. Patient is a [...] to determine stroke burden - Statin - PT/OT/SINGLE ENDING MACHINE OPERATOR evaluation Pulmonary: No acute issues, [...] stage 3a - Maintain euvolemia GI/Nutrition: - SINGLE ENDING MACHINE OPERATOR evaluation - Bowel regimen to [...] and other supportive care as per the BUFFET MANAGER note from the same day This patient [...] MD Neurocritical Care Attending [facility] Consult note* Niru Koch MD - 08/10/2024 [...] today. Consent obtained by at bedside. - SINGLE ENDING MACHINE OPERATOR eval: none - RD eval: [...] gm if patient is >80 kg) as "agricultural extension educator to the procedure"). - Please make NPO [...] Hepatology, and Nutrition Clinical Fellow PGY-4 Pager: [phone] For urgent/stat calls 5pm to 7am or all day on the weekend, please page the on- call GI fellow on WebExchange. IM Consult Serv [facility] --> [facility] Main STAT/NEW GI consults For follow up questions regarding this patient, contact the IBD consults fellow or DAHLIA on [facility]. IM Consult Serv [facility] --> [facility] [...] and medical decisions as outlined. Need for skilled nursing non-oral enteric nutrition per primary team. We will facilitate this with planned PEG tube placement. Before placement, non-GI management of TF should be established to avoid delays. David Woods M.D. 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 Prema Ramos M.D. Certified Financial Planner Department of Neurosurgery [facility] * Taran Tarore, JASIEL-CHILD CARE SPECIALIST - 08/02/2024 2:44 PM EDT Neurovascular Evaluation Note Evaluation Date: 08/02/2024 Unit: UPERI/POOL Consultation was requested by Dr. Prema Ramos MD Patient status: Outpatient Length of stay: 0 days Reason for Consult/Chief Complaint L hemiplegia, slurred speech History of Present Illness iLndsay Acuna is a 78 y.o. female with PMH significant for CAD, HTN, HLD, T2DM, Afib (on Eliquis, although patient reports she has not been taking it) who presents with L hemiplegia, slurred speech. She was last seen normal by her at 0915, later found down with slurred speech and L hemiplegia. She presented to [facility] and was seen on Telestroke, NIHSS [...] solution Intravenous Continuous PRN Bebo Barboza APRN- ANATOMIC PATHOLOGIST New Bag at 08/02/24 1507 Scheduled Meds: [...] intact; repetition intact Cranial nerves: CN II [facility] CN III, IV, PERRL. R gaze preference, able to cross CN V facial sensation intact to light touch bilaterally in V1, V2, V3 CN VII L facial droop CN VIII hearing grossly intact to voice CN IX & X soft palate elevates symmetrically in the midline, CN XI shoulder shrug absent on L CNXII tongue protrudes midline Motor: L hemiplegia Reflexes: Coordination: Oaysgr-ey-izmj intact on the R, unable to test [...] telemetry -PT, OT, Speech and social media community manager consults Other problems: Complexity. Any conditions listed [...] speech and L hemiplegia. She presented to [facility] and was seen on Telestroke, NIHSS [...] Delbert Kasper MD documented in this encounterOS[facility] Procedure note* Tanja Hunter, RIKI - [...] the below outcome measures/assessment score(s), MBS, and SINGLE ENDING MACHINE OPERATOR clinical judgment, discharge destination recommendation is: IP Rehab Facility. Patient demonstrates good candidacy for discharge to: IRF. Additional supporting factors include: Impaired swallow functionlimiting nutritional status and safety with oral intake. Acute SINGLE ENDING MACHINE OPERATOR Outcomes Tracking Communicate basic wants [...] speech and L hemiplegia. She presented to [facility] and was seen on Telestroke, NIHSS [...] Thin Barium: teaspoon x2, straw x2 Varibar [place] Barium: straw x1 Varibar Thin Honey Barium: [...] recommend NPO and nonoral meds. Ongoing skilled SINGLE ENDING MACHINE OPERATOR services indicated to address deficits [...] Therapeutic Interventions Met: yes, treatment indicated Acute SINGLE ENDING MACHINE OPERATOR Goals Plan of Care by RIKI Gonzales at 08/06/2024 9:33 AM Version 1 of 1 Problem: Dysphagia Goal: MBS - Patient will participate in Modified Barium Swallow (MBS) Study to objectively assess oropharyngeal swallow function to most appropriately guide SINGLE ENDING MACHINE OPERATOR plan of care Outcome: Met [...] Treatment Time (skilled, billable minutes): 20 minutes SINGLE ENDING MACHINE OPERATOR Evaluation and Treatment Time MBS/Motion Fluoroscopic Swallowing Eval 14681: 20 Speech Language Pathologist: RIKI Gonzales Time [...] end of session: none altered (RN present) SINGLE ENDING MACHINE OPERATOR Evaluation and Treatment Time MBS/Motion Fluoroscopic Swallowing Eval 22682: 20 Upon discontinuation of Acute Care Speech Therapy Services or patient discharge from the hospital this note represents the current Speech Therapy Discharge Summary [facility] Hospital Discharge instructions* Discharge Instructions* PATRIZIA Horowitz - 08/06/2024 8:38 AM EDT Please take [...] you at all times. Stroke Education: visit [email or web address] What are the most common symptoms of [...] all ordered medications [x] Avoid non-prescription or wwei-usl-vorhlkg medication not cleared by your physician [x] [...] may call the neurovascular doctors office at [phone], if you have questions Mon-Fri between 8:30 am and 4:30 pm. - For off hours or the weekend you may call the office or the hospital typesetter perforator operator at and ask for the stroke resident agricultural extension educator to be paged. - If you have any other questions or needs, please call Aniyah DOSS, RN, Stroke Nurse Navigator at [phone] Mon-Fri between 7:00am and 3:00pm. - Additional assistance may be found by reaching out to our Case Management Office at [phone]. *In the event of an Emergency: If you have a physical or psychiatric emergency call 271 or go to your local emergency department. You should also call your outpatient provider's emergency number. Other reference numbers: [facility] at [phone]; [facility] at 064-198-0891; or Suicide Prevention Hotline at 122-184-1545. *Helpful phone numbers: Free Crisis Hotline: 7-016-410-RWSW ( ) Suicide Hotline: 593.426.5438 Seniors Suicide Hotline: 623.596.2723 [facility] Youth: 638.834.4870 Mental Health of [place]: 992.553.4458 (free counseling) [facility] Access Hotline: 530-557-KDBG (983-192-6083) 24-hour crisis text hotline: Text the word "4hope" to 497-669 for crisis support. Texting this number is [...] Medicaid Applications over the phone. Please call 4-933-335-[place] ([phone]) and apply over the phone or apply online at www.benefits.[place].gov. Monday-Monday 8am-12pm noon. Medication Assistance Programs [employer] members can buy 100+ common prescriptions for FREE, $3 or $6. Annual membership is $36 for individuals and $72 for families (up to 6 people, including pets). Sign up online or enroll at your nearest pharmacy! [employer], web site can provide a significant number of coupons for medications at a much lower raymundo. [place] Department of Aging The Department of Aging administers programs and services to meet the needs of older [place]. Services and resources offered per county may include transportation, housekeeping, meals and nutrition, personal care, case management, safety monitoring, home medical equipment, legal services, senior financial accountant, health and wellness, education, caregiver support, respite care, etc. Call to be connected to the area agency on aging serving your community or visit aging.[place].gov/find-services. Request a consultation with a community resource expert at ltssi.age.[place].gov/ [facility] Stroke Support The [facility] Stroke Support Group is for stroke survivors, friends, and family members. Meets on the Monday of each month from 6:30pm-7:30pm at [facility] ([address]; [place] [address]). Contact Chela Nolan at [phone] or [email or web address]. If you are outside of the [place] area, contact The [place] Stroke Association at www.stroke.org or 9-092-7-STROKE or for support groups in your area. You may also refer to the Your Care after a Stroke education booklet at [email or web address] for additional resources. * Medications* PATRIZIA Miner - 08/06/2024 8:38 AM EDT Know your medicines Make sure you know why you are taking each medicine. Make a master list of all your medicines. Write down the medicine names and doctors' names. Includedoses and side effects too. And write down why you take each medicine. Include all prescription phyqwym-vkl-uygvaye medicines, vitamins, and supplements. Keep this list [...] plan your refills so that you can picket labor union all your medicines at the same time. [...] every 6 months. documented in this encounterOS[facility] History and physical note* PATRIZIA Lam [...] Visual richards intact to confrontation. PERRL. 3mm director of quality control III, IV and : EOMI. No nystagmus. [...] SpO2 >92%; wean FiO2 as tolerated - [id number], encourage pulmonary toileting Cards: Essential HTN HLD [...] prophylaxis - rationale: post thrombectomy [x] Lines [place]: n/a [place]: n/a Rectal tube: n/a Enteral [...] the assigned neurocritical care provider (resident, fellow, BUFFET MANAGER, orPA) or page/call the corresponding number below NCC1 (Beds 5202-9405): Pernell # [phone], pager #[phone] NCC2 (Beds 9121-4865, 12 Nando, and overflow): [place] #: [phone], pager #[phone] Cosigned by Richard Mejia MD at 08/02/2024 11:14 PM EDT documented in this encounterOSU [facility]03-[facility]-20[facility] Nurse Note* Rachell Ruffin RN - 08/02/2024 3:13 PM EDT 9 cc air instilled in right radial TR band @ 1520. Glasses placed in bag wit label. Sent to PACU with patient on cart. documented in this encounterOSU [facility]03-[facility]-2025 Discharge summary [facility] Medical Records Department [address] [place] [address] Emergency Department Summary 08/02/24 MR#: [id number] Acct: [id number] Name: LINDSAY ACUNA Rep #:[id number] : [...] the EMR. states they returned home from [facility] about 1.5-2 weeks ago, and they both had colds. He is better, but she is "on round 2." [facility] Medical History Paroxysmal atrial fibrillation [...] 71.4 H Lymph % (Auto) 17.[address] [place] % (Auto) 8.9 Eos % (Auto) 1.0 [...] 08/02/2024 at 1250 hours. Reading Location: [facility] Head/Neck CTA 08/02/24 12:24 IMPRESSION: RIGHT CAROTID: Mild degree of calcific plaque at the origin of the right internal carotid artery. LEFT CAROTID: Mild degree of calcific plaque at the origin of the left internal carotid artery. VERTEBRALS: Dominant left vertebral artery INTRACRANIAL: Unremarkable Other impression: No significant stenosis seen. [facility] Rhythm Strip Rhythm Strip: A-fib Rate: 90 Ectopy: None EKG Initial EKG: Attestation: I personally reviewed and interpreted this EKG as follows: Interpretation: No Acute Injury Pattern, Atrial Fibrillation and Non-Specific ST Changes Management Discussion w/another healthcare provider: Publications Distribution Clerk ([facility] stroke neurology) and Radiologist Stroke Documentation [...] min), Including time spent:, Discussing w/Patient &/or Family/Foundation Coordinator, Discussing w/Consultants, Arranging Admission or Transfer and [...] MD [Primary Care Provider] - Print Language: Micronesian Disposition Disposition: Acute Care Hospital [facility] [place] What to do if you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 11/26/2013 documented as of this encounter (statuses as of 05/27/2022) [facility] of Past illness Narrative* Problem Noted Date Diagnosed Date Resolved Date Hypertensive kidney disease with stage 3 chronic kidney disease 11/03/2020 11/05/2020 Diabetes mellitus with renal complications 05/01/2014 11/03/2020 PURE HYPERCHOLESTEROLEM 11/12 DIABETES MELLITUS TYPE II-UNCOMPL 11/26/2013 documented as of this encounter (statuses as of 11/25/2022) [facility] of Past illness Narrative* Problem Noted Date Diagnosed Date Resolved Date Hypertensive kidney disease with stage 3 chronic kidney disease 11/03/2020 11/05/2020 Diabetes mellitus with renal complications 05/01/2014 11/03/2020 PURE HYPERCHOLESTEROLEM 11/12 DIABETES MELLITUS TYPE II-UNCOMPL 11/26/2013 documented as of this encounter (statuses as of 04/08/2023) [facility] of Past illness Narrative* Problem Noted Date Diagnosed Date Resolved Date Hypertensive kidney disease with stage 3 chronic kidney disease 11/03/2020 11/05/2020 Diabetes mellitus with renal complications 05/01/2014 11/03/2020 PURE HYPERCHOLESTEROLEM 11/12 DIABETES MELLITUS TYPE II-UNCOMPL 11/26/2013 documented as of this encounter (statuses as of 04/08/2023) [facility] HospitalDischarge summary Author Pieter Morgan [facility] Note Date/Time August 02, 2024 1:1 6pm [facility] Medical Records Department [address] [place] [id number] Emergency Department Summary 08/02/24 MR#: [id number] Acct: [id number] Name: LINDSAY ACUNA Rep #:[id number] : [...] the EMR. states they returned home from [facility] about 1.5-2 weeks ago, and they both had colds. He is better, but she is "on round 2." [facility] Medical History Paroxysmal atrial fibrillation [...] 71.4 H Lymph % (Auto) 17.[address] [place] % (Auto) 8.9 Eos % (Auto) 1.0 [...] 08/02/2024 at 1250 hours. Reading Location: [facility] Head/Neck CTA 08/02/24 12:24 IMPRESSION: RIGHT CAROTID: Mild degree of calcific plaque at the origin of the right internal carotid artery. LEFT CAROTID: Mild degree of calcific plaque at the origin of the left internal carotid artery. VERTEBRALS: Dominant left vertebral artery INTRACRANIAL: Unremarkable Other impression: No significant stenosis seen. [facility] Rhythm Strip Rhythm Strip: A-fib Rate: 90 Ectopy: None EKG Initial EKG: Attestation: I personally reviewed and interpreted this EKG as follows: Interpretation: No Acute Injury Pattern, Atrial Fibrillation and Non-Specific ST Changes Management Discussion w/another healthcare provider: Publications Distribution Clerk ([facility] stroke neurology) and Radiologist Stroke Documentation [...] min), Including time spent:, Discussing w/Patient &/or Family/Foundation Coordinator, Discussing w/Consultants, Arranging Admission or Transfer and [...] MD [Primary Care Provider] - Print Language: Micronesian Disposition Disposition: Acute Care Hospital Discharge Location: [facility] What to do if you have Problems For any increased pain, shortness of breath, bleeding, nausea or vomiting, chestpain, or any unexpected problems, contact your Primary Care Provider. Call [facility] ([phone]) or report to the closest Emergency Room. Call 911 if necessary. 08/02/24 1316 <Electronically signed by Pieter Morgan MD> Cosigner Signature (if applicable): CC: Dr. Kameron Caruso MD ~ Signed [facility] Work Phone: Evaluation note* Diagnosis Need for vaccination- Primary Need for prophylactic vaccination and inoculation against unspecified single disease documented in this encounter [facility]* Diagnosis Type 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, unspecified CKD stage, unspecified whether skilled nursing insulin use (HCC)- Primary Essential hypertension, benign Hyperlipidemia, unspecified hyperlipidemia type Stage 3b chronic kidney disease (HCC) Hypothyroidism, unspecified type Memory loss documented in this encounter [facility] note* Diagnosis Type 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, unspecified CKD stage, 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 (HCC)- Primary documented in this encounter [facility] note* Diagnosis Hyperlipidemia, unspecified hyperlipidemia type Essential hypertension, benign Type 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, unspecified CKD stage, 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 (HCC) documented in this encounter [facility] note* Diagnosis Type 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, unspecified CKD stage, unspecified whether skilled nursing insulin use (HCC) Essential hypertension, benign Hyperlipidemia, unspecified hyperlipidemia type documented in this encounter [facility] note* Diagnosis Acute midline low back pain without sciatica- Primary [facility] Diagnosis Type 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, unspecified CKD stage, unspecified whether skilled nursing insulin use (HCC)- Primary [facility]* Diagnosis Essential hypertension, benign- Primary Hypothyroidism, unspecified type Type 2 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, without long-term current use of insulin (HCC) Hyperlipidemia, unspecified hyperlipidemia type Chronic kidney disease, stage 3a (HCC) Edema of left lower leg Wellness examination documented in this encounter [facility] note* Diagnosis Type 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, unspecified CKD stage, 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 (HCC) [facility] this [facility]* Diagnosis Allergic contact dermatitis due to plant- Primary Contact dermatitis and other eczema due to plants (except food) documented in this encounter [facility] note* Diagnosis Rash- Primary Rash and other nonspecific skin eruption [facility]* Diagnosis Type 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, unspecified CKD stage, unspecified whether skilled nursing insulin use (HCC)- Primary Essential hypertension, benign Chronic kidney disease, stage 3a (HCC) Hyperlipidemia, unspecified hyperlipidemia type Hypothyroidism, unspecified type Edema of left lower leg Memory loss documented in this encounter [facility] note* Diagnosis Essential hypertension, benign- [...] unspecified type (HCC) documented in this encounter [facility] note* Diagnosis Atrial fibrillation, unspecified type (HCC)- Primary Hypothyroidism, unspecified type Need for malaria prophylaxis documented in this encounter [facility] note* Diagnosis History of traveler's diarrhea- Primary Personal history of other diseases of digestive system documented in this encounter [facility] note* Diagnosis History of traveler's diarrhea Personal history of other diseases of digestive system documented in this encounter [facility] noteNo assessment information availableWPomerene Hospital Work Phone: Evaluation note* Diagnosis Acute ischemic right MCA stroke- Primary Unspecified cerebral artery occlusion with cerebral infarction Cerebrovascular accident (CVA), unspecified mechanism Renal disease (High Serum Creatinine) Unspecified disorder of kidney and ureter Type 2 diabetes mellitus with hyperglycemia Type II or unspecified type diabetes mellitus without mention of complication, not stated as uncontrolled [facility] Narrative No data available for this section [facility] Reason for referral (narrative)* Outpatient Procedure (Routine) - Pending Review Specialty Diagnoses / Procedures Referred By Qiana almodovar [facility] Diagnoses Atrial fibrillation, unspecified type (HCC) Procedures ECHO ECHO TTHRC R-T 2D W/WOM-MODE COMPL SPEC&COLR Kameron Cornejo MD [address] [place] [address] [facility] [address] [address] Referral ID Status Reason Start Date Expiration Date Visits Requested Visits Authorized [id number] Pending Review Auto-Generat ed Referral 05/31/2024 05/31/2025 1 1 * Outpatient Procedure (Routine) - New Request Specialty Diagnoses / Procedures Referred By Qiana almodovar Ref[facility] Diagnoses Irregular heart beat Procedures ECG COMPLETE ECG ROUTINE ECG W/LEAST 12 LDS W/I&R Kameron Caruso MD [address] [place] [address] [facility] [address] [place] [address] Referral ID Status Reason Start Date Expiration Date Visits Requested Visits Authorized [id number] New Request Auto-Generat ed Referral 05/31/2024 05/31/2025 1 1 [facility] for referral (narrative)No reason for referral information availableWPomerene Hospital Work Phone: Reason for visit Narrative* Auth/Cert Specialty Diagnoses / Procedures Referred By Qiana almodovar Referred To Contact Diagnoses Acute ischemic right MCA stroke Cerebrovascular Accident (Level A Ishemic Stroke) Prema Rodgers MD [address] [place] [address] Phone: tel: fax: [facility] [address] [place] [address] Referral ID Status Reason Start Date Expiration Date Visits Re quested Visits Authorized [id number] 1 1 [facility] Summary Purpose Family History No Family History Records Found Relationship Condition Age at Onset Recorded Date/T monse mother Diabetes mellitus Unknown Hypertension Unknown Psychiatric disorder Unknown grandmother Malignant neoplasm Unknown sister Disorder of thyroid Unknown Advance Directives No Advanced Directives Records FoundDocuments on File Type Date Recorded Patient Cryptographic Technician 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 Advance Directives and Living Will Power of Cnc Field Service Engineer Latest Code Status on File Code Status Date Activated Date Inactivated Comments Full Code 01/09/2019 10:16 AM Latest Code Status on File Code Status Date Activated Date Inactivated Comments Full Code 10/16/2019 9:16 AM Full Code 01/09/2019 10:16 AM 01/09/2019 2:23 PM Documents on File Type Date Recorded Patient Cryptographic Technician 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 Advance Directive(s) 11/07/2018 6:45 AM Advance Directive(s) 09/29/2015 10:09 PM Advance Directive Response Recorded Date/ Time Living Will No August 02, 2024 12:46pm Do you have a Healthcare Power of Cnc Field Service Engineer? No August 02, 2024 12:46pm Date [...] patient had a polyp identified by on {time:44986}. Biopsies {are/were w not:9034} taken. The patient's usual bowel pattern is {bowel pattern:19272}. Bowel movements {bowel changes:52052} . {abd pain:13035}. The patient has noted{bleeding with BM:51239}. The patient {does/do/not:24914} have a family history of colon polyps. The patient {does/do/not:37494} have a family history of colon cancer. [...] WORK September 10, 2024 5:0 0am AFIB (Zuly) October 02, 2024 9:29a m Chief Complaint [...] October 01, 2024 5:00a m AFIB ([facility]) October 02, 2024 9:29a m LAB WORK October 08, 2024 5:00a m MONTHLY EXAM October 09, 2024 5:45p m [facility] LAB WORK October 15, 2024 5:0 0am [facility] LAB WORK October 22, 2024 5: 00am [facility] LAB WORK October 23, 2024 5: 00am [facility] LAB WORK October 29, 2024 5: 00am [...] October 01, 2024 5:00a m [facility]IB ([facility]) October 02, 2024 9:29a m LAB WORK October 08, 2024 5:00a m MONTHLY EXAM October 09, 2024 5:45p m [facility] LAB WORK October 15, 2024 5:0 0am [facility] LAB WORK October 22, 2024 5: 00am [facility] LAB WORK October 23, 2024 5: 00am [facility] LAB WORK October 29, 2024 5: 00am NEW CONCERN October 30, 2024 6:00 pm [facility] LAB WORK November 12, 2024 5:0 0am [...] October 01, 2024 5:00a m [facility]IB ([facility]) October 02, 2024 9:29a m LAB WORK October 08, 2024 5:00a m MONTHLY EXAM October 09, 2024 5:45p m [facility] LAB WORK October 15, 2024 5:0 0am [facility] LAB WORK October 22, 2024 5: 00am NEW CONCERN October 22, 2024 12:4 5pm [facility] LAB WORK October 23, 2024 5: 00am [facility] LAB WORK October 29, 2024 5: 00am NEW CONCERN October 30, 2024 6:00 pm [facility] LAB WORK November 12, 2024 5:0 0am [...] October 01, 2024 5:00a m [facility]IB ([facility]) October 02, 2024 9:29a m LAB WORK October 08, 2024 5:00a m MONTHLY EXAM October 09, 2024 5:45p m [facility] LAB WORK October 15, 2024 5:0 0am [facility] LAB WORK October 22, 2024 5: 00am NEW CONCERN October 22, 2024 12:4 5pm [facility] LAB WORK October 23, 2024 5: 00am [facility] LAB WORK October 29, 2024 5: 00am FU VISIT October 29, 2024 7:15 pm NEW CONCERN October 30, 2024 6:00 pm [facility] LAB WORK November 12, 2024 5:0 0am Chief Complaint Admit Date LAB WORK September 10, 2024 5:0 0am ADMISSION EXAM September 10, 2024 12: 49pm ADMISSION EXAM September 11, 2024 3:0 8pm LAB WORK September 17, 2024 5:00am LABWORK September 24, 2024 5:00a m LAB WORK September 29, 2024 5:44p m LAB WORK October 01, 2024 5:00a m [facility]IB ([facility]) October 02, 2024 9:29a m LAB WORK October 08, 2024 5:00a m MONTHLY EXAM October 09, 2024 5:45p m [facility] LAB WORK October 15, 2024 5:0 0am [facility] LAB WORK October 22, 2024 5: 00am NEW CONCERN October 22, 2024 12:4 5pm [facility] LAB WORK October 23, 2024 5: 00am [facility] LAB WORK October 29, 2024 5: 00am FU VISIT October 29, 2024 7:15 pm NEW CONCERN October 30, 2024 6:00 pm [facility] LAB WORK November 05, 2024 5: 00am [facility] LAB WORK November 12, 2024 5:0 0am [facility] LAB WORK November 19, 2024 4:0 0am New Concern November 20, 2024 10:49 am LABWORK November 25, 2024 2:00 am [facility] LAB WORK November 26, 2024 5: 20am New Concern November 28, 2024 4:43 pm [facility] LAB WORK December 03, 2024 5: 00am Chief Complaint Admit Date LAB WORK September 10, 2024 5:0 0am ADMISSION EXAM September 10, 2024 12: 49pm ADMISSION EXAM September 11, 2024 3:0 8pm LAB WORK September 17, 2024 5:00am LABWORK September 24, 2024 5:00a m LAB WORK September 29, 2024 5:44p m LAB WORK October 01, 2024 5:00a m [facility]IB ([facility]) October 02, 2024 9:29a m LAB WORK October 08, 2024 5:00a m MONTHLY EXAM October 09, 2024 5:45p m [facility] LAB WORK October 15, 2024 5:0 0am [facility] LAB WORK October 22, 2024 5: 00am NEW CONCERN October 22, 2024 12:4 5pm [facility] LAB WORK October 23, 2024 5: 00am [facility] LAB WORK October 29, 2024 5: 00am FU VISIT October 29, 2024 7:15 pm NEW CONCERN October 30, 2024 6:00 pm [facility] LAB WORK November 05, 2024 5: 00am [facility] LAB WORK November 12, 2024 5:0 0am [facility] LAB WORK November 19, 2024 4:0 0am New Concern November 20, 2024 10:49 am LABWORK November 25, 2024 2:00 am [facility] LAB WORK November 26, 2024 5: 20am [facility] LAB WORK December 03, 2024 5: 00am Chief Complaint Admit Date LAB WORK September 10, 2024 5:0 0am ADMISSION EXAM September 10, 2024 12: 49pm ADMISSION EXAM September 11, 2024 3:0 8pm LAB WORK September 17, 2024 5:00am LABWORK September 24, 2024 5:00a m LAB WORK September 29, 2024 5:44p m LAB WORK October 01, 2024 5:00a m [facility]IB ([facility]) October 02, 2024 9:29a m LAB WORK October 08, 2024 5:00a m MONTHLY EXAM October 09, 2024 5:45p m [facility] LAB WORK October 15, 2024 5:0 0am [facility] LAB WORK October 22, 2024 5: 00am NEW CONCERN October 22, 2024 12:4 5pm [facility] LAB WORK October 23, 2024 5: 00am [facility] LAB WORK October 29, 2024 5: 00am FU VISIT October 29, 2024 7:15 pm NEW CONCERN October 30, 2024 6:00 pm [facility] LAB WORK November 05, 2024 5: 00am [facility] LAB WORK November 12, 2024 5:0 0am [facility] LAB WORK November 19, 2024 4:0 0am New Concern November 20, 2024 10:49 am LABWORK November 25, 2024 2:00 am [facility] LAB WORK November 26, 2024 5: 20am New Concern November 28, 2024 4:43 pm [facility] LAB WORK December 03, 2024 5: 00am [facility] LAB WORK December 10, 2024 6: 20am [facility] LAB WORK December 17, 2024 5 :00am [facility] LAB WORK December 24, 2024 5:00am [facility] LAB WORK December 31, 2024 4:00am MONTHLY EXAM December 31, 2024 12 :07pm Chief Complaint Admit Date [facility] LAB WORK October 22, 2024 5: 00am NEW CONCERN October 22, 2024 12:4 5pm [facility] LAB WORK October 23, 2024 5: 00am [facility] LAB WORK October 29, 2024 5: 00am FU VISIT October 29, 2024 7:15 pm NEW CONCERN October 30, 2024 6:00 pm [facility] LAB WORK November 05, 2024 5: 00am [facility] LAB WORK November 12, 2024 5:0 0am [facility] LAB WORK November 19, 2024 4:0 0am New Concern November 20, 2024 10:49 am LABWORK November 25, 2024 2:00 am [facility] LAB WORK November 26, 2024 5: 20am New Concern November 28, 2024 4:43 pm [facility] LAB WORK December 03, 2024 5: 00am [facility] LAB WORK December 10, 2024 6: 20am [facility] LAB WORK December 17, 2024 5 :00am [facility] LAB WORK December 24, 2024 5:00am [facility] LAB WORK December 31, 2024 4:00am MONTHLY EXAM December 31, 2024 12 :07pm [facility] LAB WORK January 07, 2025 4:00am [facility] LAB WORK January 14 4:00am LABWORK January 21, 2025 5:00am [facility] LAB WORK January 28 5:00am [facility] LAB WORK February 04 5:07am Additional Source Comments INFORMATION SOURCE (unrecogn ized section and content) DATE CREATED AUTHOR 08/31/2018 [facility] ([place]) DATE CREATED AUTHOR AUTHOR'S ORGANIZ ATION 10/18/2019 [facility] DATE CREATED AUTHOR AUTHOR'S ORGANIZ ATION 08/04/2024 [facility] [employer] [facility] DATE CREATED AUTHOR AUTHOR'S ORGANIZ ATION [facility] DATE CREATED AUTHOR AUTHOR'S ORGANIZ ATION 09/01/2024 [facility] DATE CREATED AUTHOR AUTHOR'S ORGANIZ ATION 11/08/2024 [facility] DATE CREATED AUTHOR AUTHOR'S ORGANIZ ATION 02/17/2025 [facility] DATE CREATED AUTHOR AUTHOR'S ORGANIZ ATION 02/26/2025 [facility] Source Comments (unrecognize d section and content) In the event this informatio n is protected by the Federal Confidentiality of Alcohol and Drug Abuse Patient Records regulations: The Federal rules restrict any use of the information to criminally investigate or prosecute any alcohol or drug abuse patient.[facility] the event this information is protected by the Federal Confidentiality of Alcohol and Drug Abuse Patient Records regulations: The Federal rules restrict any use of the information to criminally investigate or prosecute any alcohol or drug abuse patient.[facility] the event this information is protected by the Federal Confidentiality of Alcohol and Drug Abuse Patient Records regulations: The Federal rules restrict any use of the information to criminally investigate or prosecute any alcohol or drug abuse patient.[facility] the event this information is protected by the Federal Confidentiality of Alcohol and Drug Abuse Patient Records regulations: The Federal rules restrict any use of the information to criminally investigate or prosecute any alcohol or drug abuse patient.[facility] the event this information is protected by the Federal Confidentiality of Alcohol and Drug Abuse Patient Records regulations: The Federal rules restrict any use of the information to criminally investigate or prosecute any alcohol or drug abuse patient.[facility] the event this information is protected by the Federal Confidentiality of Alcohol and Drug Abuse Patient Records regulations: The Federal rules restrict any use of the information to criminally investigate or prosecute any alcohol or drug abuse patient.[facility] the event this information is protected by the Federal Confidentiality of Alcohol and Drug Abuse Patient Records regulations: The Federal rules restrict any use of the information to criminally investigate or prosecute any alcohol or drug abuse patient.[facility] the event this information is protected by the Federal Confidentiality of Alcohol and Drug Abuse Patient Records regulations: The Federal rules restrict any use of the information to criminally investigate or prosecute any alcohol or drug abuse patient.[facility] the event this information is protected by the Federal Confidentiality of Alcohol and Drug Abuse Patient Records regulations: The Federal rules restrict any use of the information to criminally investigate or prosecute any alcohol or drug abuse patient.[facility] the event this information is protected by the Federal Confidentiality of Alcohol and Drug Abuse Patient Records regulations: The Federal rules restrict any use of the information to criminally investigate or prosecute any alcohol or drug abuse patient.[facility] the event this information is protected by the Federal Confidentiality of Alcohol and Drug Abuse Patient Records regulations: The Federal rules restrict any use of the information to criminally investigate or prosecute any alcohol or drug abuse patient.[facility] the event this information is protected by the Federal Confidentiality of Alcohol and Drug Abuse Patient Records regulations: The Federal rules restrict any use of the information to criminally investigate or prosecute any alcohol or drug abuse patient.[facility] the event this information is protected by the Federal Confidentiality of Alcohol and Drug Abuse Patient Records regulations: The Federal rules restrict any use of the information to criminally investigate or prosecute any alcohol or drug abuse patient.[facility] the event this information is protected by the Federal Confidentiality of Alcohol and Drug Abuse Patient Records regulations: The Federal rules restrict any use of the information to criminally investigate or prosecute any alcohol or drug abuse patient.[facility] the event this information is protected by the Federal Confidentiality of Alcohol and Drug Abuse Patient Records regulations: The Federal rules restrict any use of the information to criminally investigate or prosecute any alcohol or drug abuse patient.[facility] the event this information is protected by the Federal Confidentiality of Alcohol and Drug Abuse Patient Records regulations: The Federal rules restrict any use of the information to criminally investigate or prosecute any alcohol or drug abuse patient.[facility] the event this information is protected by the Federal Confidentiality of Alcohol and Drug Abuse Patient Records regulations: The Federal rules restrict any use of the information to criminally investigate or prosecute any alcohol or drug abuse patient.[facility] the event this information is protected by the Federal Confidentiality of Alcohol and Drug Abuse Patient Records regulations: The Federal rules restrict any use of the information to criminally investigate or prosecute any alcohol or drug abuse patient.[facility] the event this information is protected by the Federal Confidentiality of Alcohol and Drug Abuse Patient Records regulations: The Federal rules restrict any use of the information to criminally investigate or prosecute any alcohol or drug abuse patient.[facility] HospitalIn the event this information is protected by the Federal Confidentiality of Alcohol and Drug Abuse Patient Records regulations: The Federal rules restrict any use of the information to criminally investigate or prosecute any alcohol or drug abuse patient.[facility] HospitalIn the event this information is protected by the Federal Confidentiality of Alcohol and Drug Abuse Patient Records regulations: The Federal rules restrict any use of the information to criminally investigate or prosecute any alcohol or drug abuse patient.[facility]In the event this information is protected by the Federal Confidentiality of Alcohol and Drug Abuse Patient Records regulations: The Federal rules restrict any use of the information to criminally investigate or prosecute any alcohol or drug abuse patient.[facility] HospitalIn the event this information is protected by the Federal Confidentiality of Alcohol and Drug Abuse Patient Records regulations: The Federal rules restrict any use of the information to criminally investigate or prosecute any alcohol or drug abuse patient.[facility] the event this information is protected by the Federal Confidentiality of Alcohol and Drug Abuse Patient Records regulations: The Federal rules restrict any use of the information to criminally investigate or prosecute any alcohol or drug abuse patient.[facility] HospitalIn the event this information is protected by the Federal Confidentiality of Alcohol and Drug Abuse Patient Records regulations: The Federal rules restrict any use of the information to criminally investigate or prosecute any alcohol or drug abuse patient.[facility]In the event this information is protected by the Federal Confidentiality of Alcohol and Drug Abuse Patient Records regulations: The Federal rules restrict any use of the information to criminally investigate or prosecute any alcohol or drug abuse patient.[facility]In the event this information is protected by the Federal Confidentiality of Alcohol and Drug Abuse Patient Records regulations: The Federal rules restrict any use of the information to criminally investigate or prosecute any alcohol or drug abuse patient.[facility]In the event this information is protected by the Federal Confidentiality of Alcohol and Drug Abuse Patient Records regulations: The Federal rules restrict any use of the information to criminally investigate or prosecute any alcohol or drug abuse patient.[facility] Reason for Visit (unrecogniz ed section [...] Comments request for medication Reason Comments [facility] requesting verbal agree to f [facility] Teams (unrecognized sec tion and content) Twisting Frame Operator Relationship Specialty Start Date End Date Kameron Caruso MD [address] [place] [address] PCP - General Family Practice 09/21/15 Twisting Frame Operator Relationship Specialty Start Date End Date Kameron Caruso MD [address] [place] [address] PCP - General Family Practice 09/21/15 Twisting Frame Operator Relationship Specialty Start Date End Date Kameron Caruso MD [address] [place] [address] PCP - General Family Practice 09/21/15 Twisting Frame Operator Relationship Specialty Start Date End Date Kameron Caruso MD [address] [place] [address] PCP - General Family Practice 09/21/15 Twisting Frame Operator Relationship Specialty Start Date End Date Kameron Caruso MD [address] [place] [address] PCP - General Family Practice 09/21/15 Twisting Frame Operator Relationship Specialty Start Date End Date Kameron Caruso MD [address] [place] [address] PCP - General Family Practice 09/21/15 Twisting Frame Operator Relationship Specialty Start Date End Date Kameron Caruso MD [address] [place] [address] PCP - General Family Medicine 09/21/15 Twisting Frame Operator Relationship Specialty Start Date End Date Kameron Caruso MD [address] [place] [address] PCP - General Family Medicine 09/21/15 Twisting Frame Operator Relationship Specialty Start Date End Date Kameron Caruso MD [address] [place] [address] PCP - General Family Medicine 09/21/15 Twisting Frame Operator Relationship Specialty Start Date End Date Kameron Caruso MD [address] [place] [address] PCP - General Family Medicine 09/21/15 Twisting Frame Operator Relationship Specialty Start Date End Date Kameron Caruso MD [address] [place] [address] PCP - General Family Medicine 09/21/15 Twisting Frame Operator Relationship Specialty Start Date End Date Kameron Caruso MD [address] [place] [address] PCP - General Family Medicine 09/21/15 Twisting Frame Operator Relationship Specialty Start Date End Date Kameron Caruso MD [address] [place] [address] PCP - General Family Medicine 09/21/15 Twisting Frame Operator Relationship Specialty Start Date End Date Kameron Caruso MD [address] [place] [address] PCP - General Family Medicine 09/21/15 Twisting Frame Operator Relationship Specialty Start Date End Date Kameron Caruso MD [address] [place] [address] PCP - General Family Medicine 09/21/15 Twisting Frame Operator Relationship Specialty Start Date End Date Kameron Caruso MD [address] [place] [address] PCP - General Family Medicine 09/21/15 Emma Sotomayor, SIX HORSE HITCH DRIVER.CHILD CARE SPECIALIST [address] [place] [address] Design Assembler Family Medicine 04/21/24 Mj Glover, SIX HORSE HITCH DRIVER.CHILD CARE SPECIALIST [address] [place] [address] Design Assembler Family Medicine 04/30/24 Twisting Frame Operator Relationship Specialty Start Date End Date Kameron Caruso MD [address] [place] [address] PCP - General Family Medicine 09/21/15 Emma Sotomayor, SIX HORSE HITCH DRIVER.CHILD CARE SPECIALIST [address] [place] [address] Design Assembler Family Medicine 04/21/24 Mj Glover APRN.CHILD CARE SPECIALIST [address] [facility] [place] [address] [facility] 04/30/24 Twisting Frame Operator Relationship Specialty Start Date End Date Kameron Caruso MD [address] [facility] [place] [address] PCP - General Family Medicine 09/21/15 Emma Sotomayor APRN.CHILD CARE SPECIALIST [address] [facility] [place] [address] [facility] 04/21/24 Mj Glover APRN.CHILD CARE SPECIALIST [address] [facility] [place] [address] [facility] 04/30/24 Twisting Frame Operator Relationship Specialty Start Date End Date Kameron Caruso MD [address] [facility] [place] [address] PCP - General Family Medicine 09/21/15 Emma Sotomayor APRN.CHILD CARE SPECIALIST [address] [facility] [place] [address] Design Assembler Family Medicine 04/21/24 Mj Glover APRN.CHILD CARE SPECIALIST [address] [facility] [place] [address] [facility] 04/30/24 Twisting Frame Operator Relationship Specialty Start Date End Date Kameron Caruso MD [address] [facility] [place] [address] PCP - General Family Medicine 09/21/15 Emma Sotomayor APRN.CHILD CARE SPECIALIST [address] [facility] [place] [address] Design Assembler Family [facility] 04/21/24 Mj Glover APRN.CHILD CARE SPECIALIST [address] [facility] [place] [address] Design Assembler [facility] 04/30/24 Twisting Frame Operator Relationship Specialty Start Date End Date Kameron Caruso MD [address] [facility] [place] [address] PCP - General Family Medicine 09/21/15 Emma Sotomayor APRN.CHILD CARE SPECIALIST [address] [facility] [place] [address] Design Assembler [facility] Medicine 04/21/24 Mj Glover APRN.CHILD CARE SPECIALIST [address] [facility] [place] [address] [facility]ly [facility] 04/30/24 Twisting Frame Operator Relationship Specialty Start Date End Date Kameron Caruso MD [address] [facility] [place] [address] PCP - General Family Medicine 09/21/15 Emma Sotomayor APRN.CHILD CARE SPECIALIST [address] [facility] [place] [address] [facility] 04/21/24 Mj Glover APRN.CHILD CARE SPECIALIST [address] [facility] [place] [address] Design [facility] 04/30/24 Team Status: Active Member Role Status Dates Dr. Kameron Caruso MD Primary Care Provider Active Team Status: Inactive Member Role Status Dates Dr. Kameron Caruso MD Primary Care Provider Active Start: August 02, 2024 End: August 02, 2024 Dr. Pieter Morgan MD Emergency Provider Active Start: August 02, 2024 End: August 02, 2024 Twisting Frame Operator Relationship Specialty Start Date End Date Kameron Caruso MD [address] [facility] [place] [address] PCP - General Family Medicine 08/03/24 Twisting Frame Operator Relationship Specialty Start Date End Date Kameron Caruso MD [address] [facility] [place] [address] PCP - General Family Medicine 09/21/15 Emma Sotomayor, SIX HORSE HITCH DRIVER.CHILD CARE SPECIALIST [address] [facility] [place] [address] Design Assembler Family Medicine 04/21/24 Mj Glover, SIX HORSE HITCH DRIVER.CHILD CARE SPECIALIST [address] [facility] [place] [address] Design Assembler Family Medicine 04/30/24 Team Status: Inactive Member [...] End: September 11, 2024 Bret Snyder NP, BUFFET MANAGER-C Attending Provider Active Start: September 11, 2024 [...] 2024 End: October 09, 2024 Bret Snyder BUFFET MANAGER, BUFFET MANAGER-C Attending Provider Active Start: October 09, 2024 [...] End: October 30, 2024 Bret Snyder NP, BUFFET MANAGER-C Attending Provider Active Start: October 30, 2024 [...] 2024 End: October 22, 2024 Bret Snyder BUFFET MANAGER, BUFFET MANAGER-C Attending Provider Active Start: October 22, 2024 [...] 2024 End: October 30, 2024 Bret Snyder BUFFET MANAGER, BUFFET MANAGER-C Attending Provider Active Start: October 30, 2024 [...] 2024 End: October 30, 2024 Bret Snyder BUFFET MANAGER, BUFFET MANAGER-C Attending Provider Active Start: October 30, 2024 End: October 30, 2024 Team Status: Active Member Role/Relationship Status Dates Dr. Kameron Caruso MD Primary Care Provider Active Start: November 05, 2024 Safia VARGAS MD Attending Provider Active Start: November 05, 2024 Team Status: Active Member Role/Relationship Status Dates Dr. Kameron Caruso MD Primary Care Provider Active Start: November 12, 2024 Safai VARGAS MD Attending Provider Active Start: November [...] 2024 End: September 11, 2024 Bret Snyder BUFFET MANAGER, BUFFET MANAGER-C Attending Provider Active Start: September 11, 2024 [...] 2024 End: October 09, 2024 Bret Snyder NP BUFFET MANAGER-C Attending Provider Active Start: October 09, 2024 [...] End: October 22, 2024 Bret Snyder NP BUFFET MANAGER-C Attending Provider Active Start: October 22, 2024 [...] 20, 2024 End: November 20, 2024 Bret Tickton BUFFET MANAGER, BUFFET MANAGER-C Attending Provider Active Start: November 20, 2024 [...] 2024 End: November 28, 2024 Bret Snyder BUFFET MANAGER, BUFFET MANAGER-C Attending Provider Active Start: November 28, 2024 [...] Attending Provider Active Start: January 07, 2025 Team Status: Active Member Role/Relationship Status Dates Dr. Kameron Caruso MD Primary care physician Active Team Status: Active Member Role/Relationship Status Dates Dr. Kameron Caruso MD Primary care physician Active Start: October 22, 2024 Safia VARGAS MD Attending physician Active Start: October 22, 2024 Team Status: Inactive Member Role/Relationship Status Dates Dr. Kameron Caruso MD Primary care physician Active Start: October 22, 2024 End: October 22, 2024 Bret Snyder BUFFET MANAGER, BUFFET MANAGER-C Attending physician Active Start: October 22, 2024 End: October 22, 2024 Team Status: Active Member Role/Relationship Status Dates Dr. Kameron Caruso MD Primary care physician Active Start: October 23, 2024 Safia VARGAS MD Attending physician Active Start: October 23, 2024 Team Status: Inactive Member Role/Relationship Status Dates Dr. Kameron Caruso MD Primary care physician Active Start: October 29, 2024 End: October 29, 2024 Safia VARGAS MD Attending physician Active Start: October 29, 2024 End: October 29, 2024 Team Status: Inactive Member Role/Relationship Status Dates Dr. Kameron Caruso MD Primary care physician Active Start: October 29, 2024 End: October 29, 2024 Dr. Safia Ruelas MD Attending physician Active Start: October 29, 2024 End: October 29, 2024 Team Status: Inactive Member Role/Relationship Status Dates Dr. Kameron Caruso MD Primary care physician Active Start: October 30, 2024 End: October 30, 2024 Bret Snyder NP BUFFET MANAGER-C Attending physician Active Start: October 30, 2024 End: October 30, 2024 Team Status: Active Member Role/Relationship Status Dates Dr. Kameron Caruso MD Primary care physician Active Start: November 05, 2024 Safia VARGAS MD Attending physician Active Start: November 05, 2024 Team Status: Active Member Role/Relationship Status Dates Dr. Kameron Caruso MD Primary care physician Active Start: November 12, 2024 Safia VARGAS MD Attending physician Active Start: November 12, 2024 Team Status: Active Member Role/Relationship Status Dates Dr. Kameron Caruso MD Primary care physician Active Start: November 19, 2024 Safia VARGAS MD Attending physician Active Start: November 19, 2024 Safia VARGAS MD Referring Provider Active Start: November 19, 2024 Team Status: Inactive Member Role/Relationship Status Dates Dr. Kameron Caruso MD Primary care physician Active Start: November 20, 2024 End: November 20, 2024 Bret Snyder NP, NP-C Attending physician Active Start: November 20, 2024 End: November 20, 2024 Team Status: Active Member Role/Relationship Status Dates Dr. Kameron Caruso MD Primary care physician Active Start: November 25, 2024 Safia VARGAS MD Attending physician Active Start: November 25, 2024 Team Status: Active Member Role/Relationship Status Dates Dr. Kameron Caruso MD Primary care physician Active Start: November 26, 2024 Safia VARGAS MD Attending physician Active Start: November 26, 2024 Safia VARGAS MD Referring Provider Active Start: November 26, 2024 Team Status: Inactive Member Role/Relationship Status Dates Dr. Kameron Caruso MD Primary care physician Active Start: November 28, 2024 End: November 28, 2024 Bret Snyder BUFFET MANAGER, BUFFET MANAGER-C Attending physician Active Start: November 28, 2024 End: November 28, 2024 Team Status: Active Member Role/Relationship Status Dates Dr. Kameorn Caruso MD Primary care physician Active Start: December 03, 2024 Safia VARGAS MD Attending physician Active Start: December 03, 2024 Team Status: Active Member Role/Relationship Status Dates Dr. Kameron Caruso MD Primary care physician Active Start: December 10, 2024 Safia VARGAS MD Attending physician Active Start: December 10, 2024 Team Status: Active Member Role/Relationship Status Dates Dr. Kameron Caruso MD Primary care physician Active Start: December 17, 2024 Safia VARGAS MD Attending physician Active Start: December 17, 2024 Team Status: Active Member Role/Relationship Status Dates Dr. Kameron Caruso MD Primary care physician Active Start: December 24, 2024 Safia VARGAS MD Attending physician Active Start: December 24, 2024 Team Status: Active Member Role/Relationship Status Dates Dr. Kameron Caruso MD Primary care physician Active Start: December 31, 2024 Safia VARGAS MD Attending physician Active Start: December 31, 2024 Safia VARGAS MD Referring Provider Active Start: December 31, 2024 Team Status: Inactive Member Role/Relationship Status Dates Dr. Kameron Caruso MD Primary care physician Active Start: December 31, 2024 End: December 31, 2024 Dr. Safia Ruelas MD Attending physician Active Start: December 31, 2024 End: December 31, 2024 Team Status: Active Member Role/Relationship Status Dates Dr. Kameron Caruso MD Primary care physician Active Start: January 07, 2025 Safia VARGAS MD Attending physician Active Start: January 07, 2025 Safia VARGAS MD Referring Provider Active Start: January 07, 2025 Team Status: Active Member Role/Relationship Status Dates Dr. Kameron Caruso MD Primary care physician Active Start: January 14, 2025 Safia VARGAS MD Attending physician Active Start: January 14, 2025 Safia VARGAS MD Referring Provider Active Start: January 14, 2025 Team Status: Active Member Role/Relationship Status Dates Dr. Kameron Caruso MD Primary care physician Active Start: January 21, 2025 Safia VARGAS MD Attending physician Active Start: January 21, 2025 Team Status: Active Member Role/Relationship Status Dates Dr. Kameron Caruso MD Primary care physician Active Start: January 28, 2025 Safia VARGAS MD Attending physician Active Start: January 28, 2025 Team Status: Active Member Role/Relationship Status Dates Dr. Kameron Caruso MD Primary care physician Active Start: February 04, 2025 Safia VARGAS MD Attending physician Active Start: February 04, 2025 Safia VARGAS MD Referring Provider Active Start: February 04, 2025 Team Status: Active Member Role/Relationship Status Dates Dr. Kameron Caruso MD Primary care physician Active Start: February 11, 2025 Safia VARGAS MD Attending physician Active Start: February 11, 2025 Team Status: Inactive Member Role/Relationship Status Dates Dr. Kameron Caruso MD Primary care physician Active Start: November 12, 2024 End: November 12, 2024 Safia VARGAS MD Attending physician Active Start: November 12, 2024 End: November 12, 2024 Team Status: Inactive Member Role/Relationship Status Dates Dr. Kameron Caruso MD Primary care physician Active Start: November 25, 2024 End: November 25, 2024 Safia VARGAS MD Attending physician Active Start: November 25, 2024 End: November 25, 2024 (unrecognized sect ion and content) No [...] hyperglycemia treatment. 0007 (Given - Provider: Katia Parekh, RN)0507 (Given - Provider: Katia Parekh, RN)[id number] [...] Shaila Eng, RN)[id number] (Given - Provider: Shaila Eng RN) [...] - Provider: Eneida Cespedes RN) Glucerna 1.5 Riuz LIQD PEG Tube, CONTINUOUS, Starting on Mon08/14/24 [...] Shanna Catalan, ZOE)[id number] (Hold - Provider: Robson Stele RN - Reason: Other - Comment: Hold [...] NEEDED, Starting on 08/05/24 at 0728, Until Mon08/15/24 at 1259, Constipation If No Bowel Movement [...] glucose is greater than 200mg/dl, then notify dope dry house operator. And BLOOD GLUCOSE (POC DEVICE) [...] 50% needed, contact pharmacy or obtain from [employer] cart ++ And glucose (GLUTOSE) 40 % [...] at 1301, Until Specified, Who to Notify: Laundry Housekeeper, For all Blood Glucose LESS THAN 80 mg/dl, notify Laundry Housekeeper after treatment per Hypoglycemia in Non- Adults [...] Intravenous, EVERY 1 HOUR NEEDED, Starting on Mon25 at 1153, Until Diane 08/15/24 at 1259, [...] BE BASED ON THE PRIMARY CLINICAL RECORDS. [facility]. provides no warranty or guarantee of the accuracy or completeness of information in this document.
[2025-03-04 08:15] LABS: Hematocrit 38.1 % (37-47); Hemoglobin 12.0 g/dL (12.0-15.0); Immature Granulocytes Count 0.030 X10^3/uL (0.0-0.0); Mean Corp Hgb Conc 31.5 g/dL (32-36); Mean Corpuscular Volume 94.1 fL (81-99); Mean Platelet Vol. 12.1 fl (6.2-12.0); NRBC Flagged by Analyzer 0 % (0-5); Platelet Count 246 K/mm3 (150-450); RBC Distribution Width CV 14.5 % (11.6-14.6); RBC Distribution Width SD 50.6 fl (35.1-43.9); Red Blood Count 4.05 M/mm3 (4.2-5.4); White Blood Count 9.0 K/mm3 (4.4-11.0)
[2025-03-04 08:29] LABS: Anion Gap 12 (5-15); BUN 24 mg/dL (4-19); BUN/Creat Ratio 28.8 RATIO (10-20); Calcium,Total 9.4 mg/dL (7.6-11.0); Carbon Dioxide 25.6 mmol/L (21.0-32.0); Chloride 104 mmol/L (98-108); Glucose 157 mg/dL (70-99); Potassium 3.9 mmol/L (3.3-5.1)
== END ==
LOC: OLS.WHLTCC 05:00
PROVIDERS: PCP Family Medicine; Visit Provider Internal Medicine
DX: E11.9 Type 2 diabetes mellitus without complications (principal); I10 Essential (primary) hypertension
CPT/HCPCS: 36415; 80048; 85025

== ENCOUNTER → 2025-03-11 04:00 | Outpatient (REF) | payer MEDICARE, SELFPAY ==
[2025-03-11 08:02] LABS: Hematocrit 36.4 % (37-47); Hemoglobin 11.7 g/dL (12.0-15.0); Immature Granulocytes Count 0.040 X10^3/uL (0.0-0.0); Mean Corp Hgb Conc 32.1 g/dL (32-36); Mean Corpuscular Volume 92.2 fL (81-99); Mean Platelet Vol. 12.3 fl (6.2-12.0); NRBC Flagged by Analyzer 0 % (0-5); Platelet Count 260 K/mm3 (150-450); RBC Distribution Width CV 13.9 % (11.6-14.6); RBC Distribution Width SD 47.6 fl (35.1-43.9); Red Blood Count 3.95 M/mm3 (4.2-5.4); White Blood Count 8.7 K/mm3 (4.4-11.0)
[2025-03-11 08:16] LABS: AST(SGOT) 19 U/L (<=31); Alanine Aminotransfer ALT/SGPT 12 U/L (<=34); Albumin, Serum 3.4 g/dL (3.4-4.8); Alkaline Phosphatase 86 U/L (35-104); Anion Gap 11 (5-15); BUN 24 mg/dL (4-19); BUN/Creat Ratio 34.8 RATIO (10-20); Bilirubin, Direct 0.13 mg/dL (0.00-0.30); Calcium,Total 9.2 mg/dL (7.6-11.0); Carbon Dioxide 25.4 mmol/L (21.0-32.0); Chloride 101 mmol/L (98-108); Cholesterol 112 mg/dL (<=200); Globulin 2.7 g/dL (2.2-4.2); Glucose 145 mg/dL (70-99); Low Density Lipoprotein Calc. 63 mg/dL; Potassium 4.0 mmol/L (3.3-5.1); Triglycerides 115 mg/dL; Very Low Density Lipoprotein 23 mg/dL (5-40); cholesterol:hdl ratio screen 3.97
== END ==
LOC: OLS.WHLTCC 04:00
PROVIDERS: PCP Family Medicine; Referring Provider Internal Medicine; Visit Provider Internal Medicine
DX: I10 Essential (primary) hypertension; I69.354 Hemiplegia and hemiparesis following cerebral infarction affecting left non-dominant side; I69.391 Dysphagia following cerebral infarction
CPT/HCPCS: 36415; 80048; 80061; 80076; 83036; 85025

== ENCOUNTER → 2025-03-18 | Outpatient (REF) | payer MEDICARE, SELFPAY ==
--- OUTSIDE RECORDS SUMMARY | 2025-03-18 04:28 | XMS RPT_ITS | CCD ---
Author Organization [facility] Care Team Providers Care Substation Manager Name Role Phone KETTY DOWNS Attending [...] Kameron Caruso MD Primary Care Provider Светлана SPUN PASTE MACHINE OPERATOR.Emma TUCKER Unavailable Saurav SPUN PASTE MACHINE OPERATOR.Mj TUCKER Unavailable JUVENTINO ROGERS Attending Unavailable JUVENTINO ROGERS Admitting Unavailable CATA ALFRED Attending Unavailable CATA ALFRED Admitting Unavailable Dr. Kameron Caruso MD Primary Care Provider [phone] Dr. Pieter Morgan MD Emergency Provider Kameron Caruso MD Primary Care Provider Светлана SPUN PASTE MACHINE OPERATOR.Emma TUCKER Unavailable Unavail able KAMERON CARUSO Referring [...] Dr. Safia Ruelas MD Attending Provider Claudio APARTMENT MAINTENANCE TECHNICIAN-CBret Attending Provider Safia Ruelas MD Referring Provider UnavailDr. Kameron Marquez MD Primary Care Provider Safia Ruelas MD Attending Provider UnavailDr. Safia Ulloa MD Attending Provider Claudio APARTMENT MAINTENANCE TECHNICIAN-C, Bret Attending Provider Safia Ruelas MD Referring Provider UnavailDr. Kameron Marquez MD Referring Provider Dr. Mj Benavides MD Attending Provider Dr. Kameron Caruso MD Primary Care Physician Safia Ruelas MD Attending Physician Unavail able Claudio APARTMENT MAINTENANCE TECHNICIAN-CBret Attending Physician Dr. Safia Ruelas MD Attending Physician [phone] Safia Ruelas MD Referring Provider Alexandra CARUSO MD, DR MELO Primary Care Unavailab shital HA DO, SILVINO Admitting Unavailable DAE DO, SILVINO Attending Unavailable BRYON LAWSON, DR REECE Consulting Unavailab shital CORRINE DO, NANDO Consulting Unavailable SUDARSHAN SPUN PASTE MACHINE OPERATOR-PLANT TECHNICIAN/CONTROL ROOM OPERATOR, AMI Hwang Consulting Unavailjair GIBSON PhD, MATTHEW Zamudio Consulting Unavailable Zuly LAWSON, Dr. Melo Primary Care Physician Safia Ruelas MD Attending Physician Unavail able Claudio CAHS-CBret Attending Physician Jessenia LAWSON, Dr. Baig Attending Physician [phone] Olequyen OLS, Efewongbe Attending Unavailabl Kameron Jolley Primary Care Unavailable Oleghe OLS, Efewongbe Attending UnavailKameron Felix Primary Care Unavailable Oleghe OLS, Efewongbe Attending UnavailKameron Felix Primary Care Unavailable Oleghe OLS, Efewongbe Attending UnavailKameron Felix Primary Care Unavailable Oleghe OLS, Efewongbe Attending UnavailKameron Felix Primary Care Unavailable Oleghe OLS, Efewongbe Attending UnavailKameron Felix Primary Care Unavailable Oleghe OLS, Efewongbe Attending Unavailabl Kameron Jolley Primary Care Unavailable Oleghe OLS, Efewongbe Attending Unavailabl Kameron Jolley Primary Care Unavailable Oleghe OLS, Efewongbe Referring Unavailabl e Oleghe OLS, Efewongbe Attending Unavailabl Kameron Jolley Primary Care Unavailable Oleghe OLS, Efewongbe Referring Unavailabl e Oleghe OLS, Efewongbe Attending Unavailabl Kameron Jolley Primary Care Unavailable Oleghe OLS, Efewongbe Attending Unavailabl Kameron Jolley Primary Care Unavailable Oleghe OLS, Efewongbe Attending Unavailabl e Kameron Caruso Primary Care Unavailable Oleghe OLS, Efewongbe Attending Unavailabl e Kameron Caruso Primary Care Unavailable Oleghe OLS, Efewongbe Attending Unavailabl Kameron Jolley Primary Care Unavailable Oleghe OLS, Efewongbe Referring Unavailabl e Oleghe OLS, Efewongbe Attending Unavailabl e Elderbrock, Kameron Primary Care Unavailable Oleghe OLS, Efewongbe Referring Unavailabl Pieter Montano Attending Unavailable Elderbrock, Kameron [...] e Elderbrock, Kameron Primary Care Unavailable [place]ickton APARTMENT MAINTENANCE TECHNICIAN, Bret Attending Unavailable Elderbrock, Kameron Primary Care Unavailable Oleghe OLS, Efewongbe Attending Unavailabl e Elderbrock, Kameron Primary Care Unavailable Oleghe, Efewongbe Attending Unavailable Elderbrock, Kameron Primary Care Unavailable [place] APARTMENT MAINTENANCE TECHNICIAN, Bret Attending Unavailable Elderbrock, Kameron Primary Care Unavailable [place] APARTMENT MAINTENANCE TECHNICIAN, Bret Attending Unavailable Elderbrock, Kameron Primary Care Unavailable Oleghe, Efewongbe Attending Unavailable Elderbrock, Kameron Primary Care Unavailable Adriel Benavidesril Attending Unavailable Elderbrock, Kameron Referring Unavailable Elderbrock, Kameron Primary Care Unavailable Oleghe, Efewongbe Attending Unavailable Elderbrock, Kameron Primary Care Unavailable [place] APARTMENT MAINTENANCE TECHNICIAN, Bret Attending Unavailable Elderbrock, Kameron Primary Care Unavailable Elderbrock, Kameron Primary Care Unavailable [place] APARTMENT MAINTENANCE TECHNICIAN, Bret Attending Unavailable [place] APARTMENT MAINTENANCE TECHNICIAN, Bret Attending Unavailable Elderbrock, Kameron Primary Care Unavailable Oleghe OLS, Efewongbe Attending Unavailabl e Elderbrock, Kameron Primary Care Unavailable Oleghe OLS, Efewongbe Referring Unavailabl e Oleghe OLS, Efewongbe Attending Unavailabl e Elderbrock, Kameron Primary Care Unavailable Oleghe OLS, Efewongbe Attending Unavailabl Kameron Jolley Primary Care Unavailable Oleghe OLS, Efewongbe Attending Unavailabl Kameron Jolely Primary Care Unavailable Oleghe OLS, Efewongbe Referring Unavailabl e Oleghe OLS, Efewongbe Attending Unavailabl Kameron Jolley Primary Care Unavailable Oleghe OLS, Efewongbe Referring Unavailabl e Oleghe OLS, Efewongbe Attending Unavailabl melanie Caruso, Kameron Primary Care Unavailable Allergies Allergy Classification Reported Allergen(s) Allergy Type Date of Onset Reaction(s) Facility (2 sources) Sulfonamides (Antibiotic) Propensity to adverse reactions to drug 6 Other (See Comments) [place], [place] (2 sources) Other Propensity to adverse reactions 6 Shortness Of Breath [place], [place] (20 sources) Benzocaine; Translations: [BENZOCAINE] Drug Allergy 6 Rash [facility] Work Phone: (20 sources) Cocaine; Translations: [COCAINE] Drug Allergy 9 Inverted T waves [facility] Work Phone: (20 sources) Sulfonamides (Antibiotic); Translations: [SULFA (SULFONAMIDE ANTIBIOTICS)] Propensity to adverse reactions 6 Intolerance [facility] Work Phone: (20 sources) Perfumes; Translations: [PERFUMES] Propensity to adverse reactions 6 Shortness of Breath [facility] Work Phone: (13 sources) Sulfonamides (Antibiotic) Allergy to substance 5 Unknown [facility] (15 sources) perfume; Translations: [perfume] Allergy to substance 5 Shortness of breath [facility] (1 source) Cocaine; Translations: [cocaine nasal] Drug Allergy [facility] (1 source) Codeine; Translations: [codeine] Drug Allergy Pharyngeal swelling (finding) [facility] (1 source) Sulfonamide; Translations: [sulfa drugs] Drug allergy [facility] (1 source) Benzocaine Drug Allergy 5 [facility] Repository (1 source) Cocaine Drug Allergy 5 [facility] Repository (1 source) Sulfonamides (Antibiotic) Drug allergy (disorder) 5 [facility] Repository Medications Current Medications Medication Drug Class(es) [...] days. donepezil hydrochloride 5 mg oral tablet (13 sources) Start: Start: 09-05-2024 Aricept 5 mg [...] kidney disease, unspecified CKD stage, unspecified whether intermission coordinator insulin use (HCC) , Type 2 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, without long-term current use of insulin (HCC) TAKE 4 TABLETS BY MOUTH ONCE DAILY WITH BREAKFAST 360 tablet 3 01/11/2022 Active Start: 10-24-2018 metFORMIN (GLU COPHAGE-XR) 500 MG extended release tablet Take 2,000 mg by mouth 0 10/24/2018 Active Comment on above: Take 4 tablets by mo [facility] daily with breakfast. TAKE 4 TABLETS BY [...] Sig (Original) amoxicillin 500 mg oral capsule (13 sources) Penicillin-class Antibacterial Start: 08-02-2024 End: 10-02-2024 [...] needed doxycycline hyclate 100 mg oral capsule (17 sources) Tetracycline-class Drug Start: 2024 End: 2024 [...] kidney disease, unspecified CKD stage, unspecified whether intermission coordinator insulin use (HCC) Take 1 tablet by [...] by m outh once daily sennosides, senior care 8.6 mg oral tablet (2 sources) Start: 08-09-2024 End: 08-15-2024 Start: 08-04-2024 End: 08-09-2024 triamcinolone acetonide 0.41513 mg/mg topical ointment (3 sources) Corticosteroid Start: [...] glucose is greater than 200mg/dl, then notify boilerhouse mechanic. [Order 2 End] [Order 3 Start] [...] 50% needed, contact pharmacy or obtain from [facility] cart ++ [Order 5 End] [Order 6 [...] at 1301, Until Specified, Who to Notify: Relief Map Modeler, For all Blood Glucose LESS THAN 80 mg/dl, notify Relief Map Modeler after treatment per Hypoglycemia in Non- Adults [...] middle cerebral artery] Onset: 5 08-02-2024 Chronic Allergic reactions (1 source) Allergic [...] 4 Coronary atherosclerosis and other heart disease (15 sources) Coronary arteriosclerosis; Translations: [Atherosclerotic heart disease of [place] coronary artery without angina pectoris] Onset: 5 [...] unspecified site] Onset: 5 Chronic Other aftercare (13 sources) 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; Translations: [alf (current) use of anticoagulants] 08-02-2024 Episodic Other diseases of bladder and urethra (1 source) Overactive bladder; Translations: [Overactive bladder] Onset: 5 Chronic Other diseases of kidney and ureters (15 sources) Kidney disease; Translations: [Disorder of kidney and ureter, unspecified] Onset: 5 07-03-2024 Episodic Other diseases of kidney and ureters (13 sources) Chronic renal insufficiency; Translations: [Disorder of kidney and ureter, unspecified] 08-02-2024 Episodic Other eye disorders (13 sources) H/O: Bilateral cataract extraction; Translations: [Cataract [...] eruption] 10-10-2023 Episodic Other upper respiratory infections (13 sources) Upper respiratory infection; Translations: [Acute upper [...] Onset: 08-15-2024 Episodic Other aftercare (1 source) 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; Translations: [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] Onset: 08-15-2024 Episodic Other aftercare (1 source) alf (current) use of anticoagulants; Translations: [petroleum terminal plant operator (current) use of anticoagulants] Onset: 08-15-2024 Episodic Other aftercare (1 source) alf (current) [...] lymphocyte countOrd ered By: Safia Ruelas on 03-04-2025 Lymphocytes Auto (Unsp spec) [#/Vol] 2.89 10*3/uL 0.83-4.51 [facility] Anion gap in Serum or Plasma Ordered By: Safia Ruelas on 03-04-2025 Anion gap [Moles/Vol] 12 mmol/L 5-15 [facility] Automated lymphocyte count a s percentage of total leukocytesOrdered By: Safia Ruelas on 03-04-2025 Lymphocytes/100 WBC Auto (Unsp spec) 32.0 % 19-41 [facility] BUN/creatinine ratioOrdered By: Safia Ruelas on 03-04-2025 Urea nitrogen/Creatinine [Mass ratio] 28.8 mg/mg High 10-20 [facility] Basophil percentageOrdered B y: Safia Ruelas on 03-04-2025 Basophils/100 WBC (Bld) 0.7 % 0-1 [facility] Carbon dioxide, total [Moles /volume] in Central venous bloodOrdered By: Safia Ruelas on 03-04-2025 CO2 [Moles/Vol] 25.6 mmol/L 21.0-32.0 [facility] Chloride assayOrdered By: Balbir Ruelas on 03-04-2025 Chloride [Moles/Vol] 104 mmol/L 98-108 [facility] Eosinophil percentageOrdered By: Safia Ruelas on 03-04-2025 Eosinophils/100 WBC (Bld) 2.1 % 0-5 [facility] Erythrocyte distribution wid th ratioOrdered By: Safia Ruelas on 03-04-2025 Erythrocyte distribution width (RBC) [Ratio] 14.5 % 11.6-14.6 [facility] Erythrocyte distribution wid th standard deviationOrdered By: Safia Ruelas on 03-04-2025 Erythrocyte distribution width (RBC) [Ratio] 50.6 fl High 35.1-43.9 [facility] Glomerular filtration rate ( GFR) estimation/1.73 sq m using serum, plasma, or whole bOrdered By: Saifa Ruelas on 03-04-2025 GFR/1.73 sq M.predicted among non-blacks MDRD (S/P/Bld) [Vol rate/Area] 73 mL/min/{1.73_m2} >60 [facility] Hematocrit Auto (Bld) [Volum e fraction]Ordered By: Safia Ruelas on 03-04-2025 Hematocrit (Bld) [Volume fraction] 38.1 % 37-47 [facility] Hemoglobin measurementOrdere d By: Safia Ruelas on 03-04-2025 Hemoglobin (Bld) [Mass/Vol] 12.0 g/dL 12.0-15.0 [facility] Immature granulocytes/100 WB C Auto (Bld)Ordered By: Safia Ruelas on 03-04-2025 Immature granulocytes/100 WBC (Bld) 0.300 % 0.0-0.9 [facility] MCV (mean corpuscular volume ) determinationOrdered By: Safia Ruelas on 03-04-2025 MCV (RBC) [Entitic vol] 94.1 fL 81-99 [facility] Mean corpuscular hemoglobin (MCH) determinationOrdered By: Safia Ruelas on 03-04-2025 MCH (RBC) [Entitic mass] 29.6 pg 27.0-32.0 [facility] Monocyte percentageOrdered B y: Safia Ruelas on 03-04-2025 Monocytes/100 WBC (Bld) 8.5 % 0-10 [facility] Neutrophil percentageOrdered By: Safia Ruelas on 03-04-2025 Neutrophils/100 WBC (Bld) 56.4 % 47-70 [facility] Platelet countOrdered By: Balbir pereirabe Cheobonimelanie on 03-04-2025 Platelets (Bld) [#/Vol] 246 10*3/uL 150-450 [facility] Potassium measurement (mass/ volume)Ordered By: Balbirjean mariejosé antonio Cheoquyen on 03-04-2025 Potassium (Unsp spec) [Mass/Vol] 3.9 mmol/L 3.3-5.1 [facility] RBC Auto (Bld) [#/Vol]Ordere d By: Balbirjean mariejosé antonio Cheoquyen on 03-04-2025 RBC (Bld) [#/Vol] 4.05 10*6/uL Low 4.2-5.4 [facility] Serum creatinine measurement (mass/volume)Ordered By: Balbirjean mariedesireeskye Griderbonimelanie on 03-04-2025 Creatinine [Mass/Vol] 0.82 mg/dL 0.70-1.20 [facility] Serum glucose measurement (m ass/volume)Ordered By: Balbirsherry Griderbonimelanie on 03-04-2025 Glucose [Mass/Vol] 157 mg/dL High 70-99 [facility] Serum or plasma calcium dayna urement (mass/volume)Ordered By: Balbirjean mariejosé antonio Cheoquyen on 03-04-2025 Calcium [Mass/Vol] 9.4 mg/dL 7.6-11.0 [facility] Serum or plasma urea nitroge n measurement (mass/volume)Ordered By: Balbirsherry Griderbonimelanie on 03-04-2025 Urea nitrogen [Mass/Vol] 24 mg/dL High 4-19 [facility] Sodium levelOrdered By: Leonides chou Cheobonimelanie on 03-04-2025 Sodium [Moles/Vol] 142 mmol/L 133-145 [facility] White blood cell (WBC) count Ordered By: Balbirjean mariedesireeskye Griderbonimelanie on 03-04-2025 WBC (Bld) [#/Vol] 9.0 10*3/uL 4.4-11.0 [facility] Absolute lymphocyte countOrd ered By: Balbirjean mariejosé antonio Cheobonimelanie on 02-25-2025 Lymphocytes Auto (Unsp spec) [#/Vol] 3.32 10*3/uL 0.83-4.51 [facility] Anion gap in Serum or Plasma Ordered By: Safia Ruelas on 02-25-2025 Anion gap [Moles/Vol] 12 mmol/L 5-15 [facility] Automated lymphocyte count a s percentage of total leukocytesOrdered By: Safia Ruelas on 02-25-2025 Lymphocytes/100 WBC Auto (Unsp spec) 36.7 % 19-41 [facility] BUN/creatinine ratioOrdered By: Safia Ruelas on 02-25-2025 Urea nitrogen/Creatinine [Mass ratio] 20.5 mg/mg High 10-20 [facility] Basophil percentageOrdered B y: Safia Ruelas on 02-25-2025 Basophils/100 WBC (Bld) 0.6 % 0-1 [facility] Carbon dioxide, total [Moles /volume] in Central venous bloodOrdered By: Safia Ruelas on 02-25-2025 CO2 [Moles/Vol] 25.9 mmol/L 21.0-32.0 [facility] Chloride assayOrdered By: Balbir Ruelas on 02-25-2025 Chloride [Moles/Vol] 103 mmol/L 98-108 [facility] Eosinophil percentageOrdered By: Safia Ruelas on 02-25-2025 Eosinophils/100 WBC (Bld) 2.2 % 0-5 [facility] Erythrocyte distribution wid th ratioOrdered By: Safia Ruelas on 02-25-2025 Erythrocyte distribution width (RBC) [Ratio] 14.3 % 11.6-14.6 [facility] Erythrocyte distribution wid th standard deviationOrdered By: Safia Ruelas on 02-25-2025 Erythrocyte distribution width (RBC) [Ratio] 48.5 fl High 35.1-43.9 [facility] Glomerular filtration rate ( GFR) estimation/1.73 sq m using serum, plasma, or whole bOrdered By: Safia Ruelas on 02-25-2025 GFR/1.73 sq M.predicted among non-blacks MDRD (S/P/Bld) [Vol rate/Area] 75 mL/min/{1.73_m2} >60 [facility] Hematocrit Auto (Bld) [Volum e fraction]Ordered By: Safia Westonmelanie on 02-25-2025 Hematocrit (Bld) [Volume fraction] 39.0 % 37-47 [facility] Hemoglobin measurementOrdere d By: Safia Ruelas on 02-25-2025 Hemoglobin (Bld) [Mass/Vol] 12.3 g/dL 12.0-15.0 [facility] Immature granulocytes/100 WB C Auto (Bld)Ordered By: Safia Ruelas on 02-25-2025 Immature granulocytes/100 WBC (Bld) 0.400 % 0.0-0.9 [facility] MCV (mean corpuscular volume ) determinationOrdered By: Safia Cheobonimelanie on 02-25-2025 MCV (RBC) [Entitic vol] 92.4 fL 81-99 [facility] Mean corpuscular hemoglobin (MCH) determinationOrdered By: Safia Ruelas on 02-25-2025 MCH (RBC) [Entitic mass] 29.1 pg 27.0-32.0 [facility] Monocyte percentageOrdered B y: Safia Ruelas on 02-25-2025 Monocytes/100 WBC (Bld) 7.7 % 0-10 [facility] Neutrophil percentageOrdered By: Safia Ruelas on 02-25-2025 Neutrophils/100 WBC (Bld) 52.4 % 47-70 [facility] Platelet countOrdered By: Balbir Ruelas on 02-25-2025 Platelets (Bld) [#/Vol] 257 10*3/uL 150-450 [facility] Potassium measurement (mass/ volume)Ordered By: Safia Westonmealnie on 02-25-2025 Potassium (Unsp spec) [Mass/Vol] 3.5 mmol/L 3.3-5.1 [facility] RBC Auto (Bld) [#/Vol]Ordere d By: Safia Ruelas on 02-25-2025 RBC (Bld) [#/Vol] 4.22 10*6/uL 4.2-5.4 [facility] Serum creatinine measurement (mass/volume)Ordered By: Safia Westonmelanie on 02-25-2025 Creatinine [Mass/Vol] 0.80 mg/dL 0.70-1.20 [facility] Serum glucose measurement (m ass/volume)Ordered By: Safia Ruelas on 02-25-2025 Glucose [Mass/Vol] 121 mg/dL High 70-99 [facility] Serum or plasma calcium dayna urement (mass/volume)Ordered By: Safia Ruelas on 02-25-2025 Calcium [Mass/Vol] 9.2 mg/dL 7.6-11.0 [facility] Serum or plasma urea nitroge n measurement (mass/volume)Ordered By: Safia Ruelas on 02-25-2025 Urea nitrogen [Mass/Vol] 16 mg/dL 4-19 [facility] Sodium levelOrdered By: Leonides jiménezradha Jessenia on 02-25-2025 Sodium [Moles/Vol] 140 mmol/L 133-145 [facility] TSH DL <= 0.005 mIU/L QnOrde red By: Safia Ruelas on 02-25-2025 TSH Qn 0.226 uIU/mL Low 0.300-4.200 [facility] White blood cell (WBC) count Ordered By: Safia Ruelas on 02-25-2025 WBC (Bld) [#/Vol] 9.0 10*3/uL 4.4-11.0 [facility] Absolute lymphocyte countOrd ered By: Safia Ruelas on 02-18-2025 Lymphocytes Auto (Unsp spec) [#/Vol] 1.78 10*3/uL 0.83-4.51 [facility] Anion gap in Serum or Plasma Ordered By: Safia Ruelas on 02-18-2025 Anion gap [Moles/Vol] 13 mmol/L 5-15 [facility] Automated lymphocyte count a s percentage of total leukocytesOrdered By: Safia Ruelas on 02-18-2025 Lymphocytes/100 WBC Auto (Unsp spec) 22.5 % 19-41 [facility] BUN/creatinine ratioOrdered By: Safia Ruelas on 02-18-2025 Urea nitrogen/Creatinine [Mass ratio] 23.7 mg/mg High 10-20 [facility] Basophil percentageOrdered B y: Safia Ruelas on 02-18-2025 Basophils/100 WBC (Bld) 0.4 % 0-1 [facility] Carbon dioxide, total [Moles /volume] in Central venous bloodOrdered By: Safia Ruelas on 02-18-2025 CO2 [Moles/Vol] 23.2 mmol/L 21.0-32.0 [facility] Chloride assayOrdered By: Balbir Ruelas on 02-18-2025 Chloride [Moles/Vol] 102 mmol/L 98-108 [facility] Eosinophil percentageOrdered By: Safia Ruelas on 02-18-2025 Eosinophils/100 WBC (Bld) 0.4 % 0-5 [facility] Erythrocyte distribution wid th ratioOrdered By: Safia Ruelas on 02-18-2025 Erythrocyte distribution width (RBC) [Ratio] 14.3 % 11.6-14.6 [facility] Erythrocyte distribution wid th standard deviationOrdered By: Safia Ruelas on 02-18-2025 Erythrocyte distribution width (RBC) [Ratio] 48.0 fl High 35.1-43.9 [facility] Glomerular filtration rate ( GFR) estimation/1.73 sq m using serum, plasma, or whole bOrdered By: Safia Ruelas on 02-18-2025 GFR/1.73 sq M.predicted among non-blacks MDRD (S/P/Bld) [Vol rate/Area] 76 mL/min/{1.73_m2} >60 [facility] Hematocrit Auto (Bld) [Volum e fraction]Ordered By: Safia Ruelas on 02-18-2025 Hematocrit (Bld) [Volume fraction] 39.0 % 37-47 [facility] Hemoglobin measurementOrdere d By: Safia Ruelas on 02-18-2025 Hemoglobin (Bld) [Mass/Vol] 12.5 g/dL 12.0-15.0 [facility] Immature granulocytes/100 WB C Auto (Bld)Ordered By: Safia Ruelas on 02-18-2025 Immature granulocytes/100 WBC (Bld) 0.300 % 0.0-0.9 [facility] MCV (mean corpuscular volume ) determinationOrdered By: Safia Ruelas on 02-18-2025 MCV (RBC) [Entitic vol] 92.2 fL 81-99 [facility] Mean corpuscular hemoglobin (MCH) determinationOrdered By: Balbirjean mariedesireeskye Griderbonimelanie on 02-18-2025 MCH (RBC) [Entitic mass] 29.6 pg 27.0-32.0 [facility] Monocyte percentageOrdered B y: Safia Ruelas on 02-18-2025 Monocytes/100 WBC (Bld) 4.8 % 0-10 [facility] Neutrophil percentageOrdered By: Balbirsherry Griderbonimelanie on 02-18-2025 Neutrophils/100 WBC (Bld) 71.6 % High 47-70 [facility] Platelet countOrdered By: Balbir sherry Jessenia on 02-18-2025 Platelets (Bld) [#/Vol] 263 10*3/uL 150-450 [facility] Potassium measurement (mass/ volume)Ordered By: Safia Ruelas on 02-18-2025 Potassium (Unsp spec) [Mass/Vol] 4.1 mmol/L 3.3-5.1 [facility] RBC Auto (Bld) [#/Vol]Ordere d By: Leonidesdesireeskye Ruelas on 02-18-2025 RBC (Bld) [#/Vol] 4.23 10*6/uL 4.2-5.4 [facility] Serum creatinine measurement (mass/volume)Ordered By: Safia Ruelas on 02-18-2025 Creatinine [Mass/Vol] 0.79 mg/dL 0.70-1.20 [facility] Serum glucose measurement (m ass/volume)Ordered By: Safia Ruelas on 02-18-2025 Glucose [Mass/Vol] 165 mg/dL High 70-99 [facility] Serum or plasma calcium dayna urement (mass/volume)Ordered By: Safia Ruelas on 02-18-2025 Calcium [Mass/Vol] 9.2 mg/dL 7.6-11.0 [facility] Serum or plasma urea nitroge n measurement (mass/volume)Ordered By: Balbirjean mariedesireeskye Griderbonimelanie on 02-18-2025 Urea nitrogen [Mass/Vol] 19 mg/dL 4-19 [facility] Sodium levelOrdered By: Leonides chou Cheoquyen on 02-18-2025 Sodium [Moles/Vol] 138 mmol/L 133-145 [facility] White blood cell (WBC) count Ordered By: Leonidesjosé antonio Cheobonimelanie on 02-18-2025 WBC (Bld) [#/Vol] 7.9 10*3/uL 4.4-11.0 [facility] Absolute lymphocyte countOrd ered By: Balbirjean mariejosé antonio Cheoquyen on 02-11-2025 Lymphocytes Auto (Unsp spec) [#/Vol] 2.71 10*3/uL 0.83-4.51 [facility] Anion gap in Serum or Plasma Ordered By: Safia Griderbonimelanie on 02-11-2025 Anion gap [Moles/Vol] 14 mmol/L 5-15 [facility] Automated lymphocyte count a s percentage of total leukocytesOrdered By: Balbirjean mariejosé antonio Cheobonimelanie on 02-11-2025 Lymphocytes/100 WBC Auto (Unsp spec) 36.1 % 19-41 [facility] BUN/creatinine ratioOrdered By: Leonidesdesireeskye Griderbonimelanie on 02-11-2025 Urea nitrogen/Creatinine [Mass ratio] 23.1 mg/mg High 10-20 [facility] Basophil percentageOrdered B y: Safia Cheobonimelanie on 02-11-2025 Basophils/100 WBC (Bld) 0.7 % 0-1 [facility] Carbon dioxide, total [Moles /volume] in Central venous bloodOrdered By: Balbirsherry Griderbonimelanie on 02-11-2025 CO2 [Moles/Vol] 21.6 mmol/L 21.0-32.0 [facility] Chloride assayOrdered By: Balbir jean mariejosé antonio Ruelas on 02-11-2025 Chloride [Moles/Vol] 103 mmol/L 98-108 [facility] Eosinophil percentageOrdered By: Safia Griderbonimelanie on 02-11-2025 Eosinophils/100 WBC (Bld) 2.0 % 0-5 [facility] Erythrocyte distribution wid th ratioOrdered By: Safia Ruelas on 02-11-2025 Erythrocyte distribution width (RBC) [Ratio] 14.4 % 11.6-14.6 [facility] Erythrocyte distribution wid th standard deviationOrdered By: Safia Ruelas on 02-11-2025 Erythrocyte distribution width (RBC) [Ratio] 47.5 fl High 35.1-43.9 [facility] Glomerular filtration rate ( GFR) estimation/1.73 sq m using serum, plasma, or whole bOrdered By: Safia Ruelas on 02-11-2025 GFR/1.73 sq M.predicted among non-blacks MDRD (S/P/Bld) [Vol rate/Area] 72 mL/min/{1.73_m2} >60 [facility] Hematocrit Auto (Bld) [Volum e fraction]Ordered By: Leonidesblack [place] Ruelas on 02-11-2025 Hematocrit (Bld) [Volume fraction] 37.4 % 37-47 [facility] Hemoglobin measurementOrdere d By: Safia Ruelas on 02-11-2025 Hemoglobin (Bld) [Mass/Vol] 12.4 g/dL 12.0-15.0 [facility] Immature granulocytes/100 WB C Auto (Bld)Ordered By: Safia Ruelas on 02-11-2025 Immature granulocytes/100 WBC (Bld) 0.400 % 0.0-0.9 [facility] MCV (mean corpuscular volume ) determinationOrdered By: Safia Ruelas on 02-11-2025 MCV (RBC) [Entitic vol] 90.3 fL 81-99 [facility] Mean corpuscular hemoglobin (MCH) determinationOrdered By: [facility] R[facility] on 02-11-2025 MCH (RBC) [Entitic mass] 30.0 pg 27.0-32.0 [facility] Monocyte percentageOrdered B y: Safia Ruelas on 02-11-2025 Monocytes/100 WBC (Bld) 6.8 % 0-10 [facility] Neutrophil percentageOrdered By: jean marieblack [place] Ruelas on 02-11-2025 Neutrophils/100 WBC (Bld) 54.0 % 47-70 [facility] Platelet countOrdered By: Balbir sherry Ruelas on 02-11-2025 Platelets (Bld) [#/Vol] 260 10*3/uL 150-450 [facility] Potassium measurement (mass/ volume)Ordered By: Safia Ruelas on 02-11-2025 Potassium (Unsp spec) [Mass/Vol] 3.6 mmol/L 3.3-5.1 [facility] RBC Auto (Bld) [#/Vol]Ordere d By: Safia hCeoquyen on 02-11-2025 RBC (Bld) [#/Vol] 4.14 10*6/uL Low 4.2-5.4 [facility] Serum creatinine measurement (mass/volume)Ordered By: Safia Ruelas on 02-11-2025 Creatinine [Mass/Vol] 0.83 mg/dL 0.70-1.20 [facility] Serum glucose measurement (m ass/volume)Ordered By: Balbirjean mariejosé antonio Cheoquyen on 02-11-2025 Glucose [Mass/Vol] 110 mg/dL High 70-99 [facility] Serum or plasma calcium dayna urement (mass/volume)Ordered By: Safia Cheoquyen on 02-11-2025 Calcium [Mass/Vol] 9.1 mg/dL 7.6-11.0 [facility] Serum or plasma urea nitroge n measurement (mass/volume)Ordered By: Safia Ruelas on 02-11-2025 Urea nitrogen [Mass/Vol] 19 mg/dL 4-19 [facility] Sodium levelOrdered By: Leonides chou Cheobonimelanie on 02-11-2025 Sodium [Moles/Vol] 139 mmol/L 133-145 [facility] White blood cell (WBC) count Ordered By: Safia Cheoquyen on 02-11-2025 WBC (Bld) [#/Vol] 7.5 10*3/uL 4.4-11.0 [facility] Absolute lymphocyte countOrd ered By: Safia Cheoquyen on 02-04-2025 Lymphocytes Auto (Unsp spec) [#/Vol] 3.03 10*3/uL 0.83-4.51 [facility] Anion gap in Serum or Plasma Ordered By: Safia Ruelas on 02-04-2025 Anion gap [Moles/Vol] 12 mmol/L 5-15 [facility] Automated lymphocyte count a s percentage of total leukocytesOrdered By: Safia Ruelas on 02-04-2025 Lymphocytes/100 WBC Auto (Unsp spec) 36.1 % 19-41 [facility] BUN/creatinine ratioOrdered By: Safia Ruelas on 02-04-2025 Urea nitrogen/Creatinine [Mass ratio] 21.0 mg/mg High 10-20 [facility] Basophil percentageOrdered B y: Safia Ruelas on 02-04-2025 Basophils/100 WBC (Bld) 0.7 % 0-1 [facility] Carbon dioxide, total [Moles /volume] in Central venous bloodOrdered By: Leonidesblack [place] Ruelas on 02-04-2025 CO2 [Moles/Vol] 23.5 mmol/L 21.0-32.0 [facility] Chloride assayOrdered By: Balbir Ruelas on 02-04-2025 Chloride [Moles/Vol] 103 mmol/L 98-108 [facility] Eosinophil percentageOrdered By: sherry Ruelas on 02-04-2025 Eosinophils/100 WBC (Bld) 2.3 % 0-5 [facility] Erythrocyte distribution wid th ratioOrdered By: jean marieblack [place] Ruelas on 02-04-2025 Erythrocyte distribution width (RBC) [Ratio] 14.5 % 11.6-14.6 [facility] Erythrocyte distribution wid th standard deviationOrdered By: Safia Ruelas on 02-04-2025 Erythrocyte distribution width (RBC) [Ratio] 47.8 fl High 35.1-43.9 [facility] Glomerular filtration rate ( GFR) estimation/1.73 sq m using serum, plasma, or whole bOrdered By: Safia Ruelas on 02-04-2025 GFR/1.73 sq M.predicted among non-blacks MDRD (S/P/Bld) [Vol rate/Area] 85 mL/min/{1.73_m2} >60 [facility] Hematocrit Auto (Bld) [Volum e fraction]Ordered By: Safia Griderbonimelanie on 02-04-2025 Hematocrit (Bld) [Volume fraction] 38.3 % 37-47 [facility] Hemoglobin measurementOrdere d By: Safia Ruelas on 02-04-2025 Hemoglobin (Bld) [Mass/Vol] 12.4 g/dL 12.0-15.0 [facility] Immature granulocytes/100 WB C Auto (Bld)Ordered By: Balbirjean mariejosé antonio Cheobonimelanie on 02-04-2025 Immature granulocytes/100 WBC (Bld) 0.400 % 0.0-0.9 [facility] MCV (mean corpuscular volume ) determinationOrdered By: Balbirsherry Griderbonimelanie on 02-04-2025 MCV (RBC) [Entitic vol] 90.3 fL 81-99 [facility] Mean corpuscular hemoglobin (MCH) determinationOrdered By: sherry Griderbonimelanie on 02-04-2025 MCH (RBC) [Entitic mass] 29.2 pg 27.0-32.0 [facility] Monocyte percentageOrdered B y: Safia Cheoquyen on 02-04-2025 Monocytes/100 WBC (Bld) 7.9 % 0-10 [facility] Neutrophil percentageOrdered By: Safia Ruelas on 02-04-2025 Neutrophils/100 WBC (Bld) 52.6 % 47-70 [facility] Platelet countOrdered By: Balbir powell Cheobonimelanie on 02-04-2025 Platelets (Bld) [#/Vol] 278 10*3/uL 150-450 [facility] Potassium measurement (mass/ volume)Ordered By: Balbirjean mariedesireeskye Griderbonimelanie on 02-04-2025 Potassium (Unsp spec) [Mass/Vol] 3.4 mmol/L 3.3-5.1 [facility] RBC Auto (Bld) [#/Vol]Ordere d By: Safia Cheobonimelanie on 02-04-2025 RBC (Bld) [#/Vol] 4.24 10*6/uL 4.2-5.4 [facility] Serum creatinine measurement (mass/volume)Ordered By: Balbirsherry Griderbonimelanie on 02-04-2025 Creatinine [Mass/Vol] 0.71 mg/dL 0.70-1.20 [facility] Serum glucose measurement (m ass/volume)Ordered By: Safia Ruelas on 02-04-2025 Glucose [Mass/Vol] 141 mg/dL High 70-99 [facility] Serum or plasma calcium dayna urement (mass/volume)Ordered By: Safia Ruelas on 02-04-2025 Calcium [Mass/Vol] 9.0 mg/dL 7.6-11.0 [facility] Serum or plasma urea nitroge n measurement (mass/volume)Ordered By: Safia Ruelas on 02-04-2025 Urea nitrogen [Mass/Vol] 15 mg/dL 4-19 [facility] Sodium levelOrdered By: Leonides josé antonio Jessenia on 02-04-2025 Sodium [Moles/Vol] 139 mmol/L 133-145 [facility] White blood cell (WBC) count Ordered By: Safia Ruelas on 02-04-2025 WBC (Bld) [#/Vol] 8.4 10*3/uL 4.4-11.0 [facility] Absolute lymphocyte countOrd ered By: Safia Ruelas on 01-28-2025 Lymphocytes Auto (Unsp spec) [#/Vol] 3.03 10*3/uL 0.83-4.51 [facility] Anion gap in Serum or Plasma Ordered By: Safia Ruelas on 01-28-2025 Anion gap [Moles/Vol] 12 mmol/L 5-15 [facility] Automated lymphocyte count a s percentage of total leukocytesOrdered By: Safia Ruelas on 01-28-2025 Lymphocytes/100 WBC Auto (Unsp spec) 36.0 % 19-41 [facility] BUN/creatinine ratioOrdered By: Safia Ruelas on 01-28-2025 Urea nitrogen/Creatinine [Mass ratio] 20.0 mg/mg 10-20 [facility] Basophil percentageOrdered B y: Safia Ruelas on 01-28-2025 Basophils/100 WBC (Bld) 0.6 % 0-1 [facility] Carbon dioxide, total [Moles /volume] in Central venous bloodOrdered By: Safia Ruelas on 01-28-2025 CO2 [Moles/Vol] 24.7 mmol/L 21.0-32.0 [facility] Chloride assayOrdered By: Balbir Ruelas on 01-28-2025 Chloride [Moles/Vol] 103 mmol/L 98-108 [facility] Eosinophil percentageOrdered By: Safia Ruelas on 01-28-2025 Eosinophils/100 WBC (Bld) 1.8 % 0-5 [facility] Erythrocyte distribution wid th ratioOrdered By: jean marieblack [place] Ruelas on 01-28-2025 Erythrocyte distribution width (RBC) [Ratio] 14.6 % 11.6-14.6 [facility] Erythrocyte distribution wid th standard deviationOrdered By: jean marieblack [place] Ruelas on 01-28-2025 Erythrocyte distribution width (RBC) [Ratio] 48.6 fl High 35.1-43.9 [facility] Glomerular filtration rate ( GFR) estimation/1.73 sq m using serum, plasma, or whole bOrdered By: Safia Ruelas on 01-28-2025 GFR/1.73 sq M.predicted among non-blacks MDRD (S/P/Bld) [Vol rate/Area] 88 mL/min/{1.73_m2} >60 [facility] Hematocrit Auto (Bld) [Volum e fraction]Ordered By: sherry Ruelas 01-28-2025 Hematocrit (Bld) [Volume fraction] 38.1 % 37-47 [facility] Hemoglobin measurementOrdere d By: Safia Ruelas on 01-28-2025 Hemoglobin (Bld) [Mass/Vol] 12.3 g/dL 12.0-15.0 [facility] Immature granulocytes/100 WB C Auto (Bld)Ordered By: Safia Ruelas 01-28-2025 Immature granulocytes/100 WBC (Bld) 0.400 % 0.0-0.9 [facility] MCV (mean corpuscular volume ) determinationOrdered By: Safia Ruelas 01-28-2025 MCV (RBC) [Entitic vol] 90.7 fL 81-99 [facility] Mean corpuscular hemoglobin (MCH) determinationOrdered By: Safia Ruelas on 01-28-2025 MCH (RBC) [Entitic mass] 29.3 pg 27.0-32.0 [facility] Monocyte percentageOrdered B y: Safia Ruelas on 01-28-2025 Monocytes/100 WBC (Bld) 8.2 % 0-10 [facility] Neutrophil percentageOrdered By: Safia Griderbonimelanie on 01-28-2025 Neutrophils/100 WBC (Bld) 53.0 % 47-70 [facility] Platelet countOrdered By: Balbir jean mariejosé antonio Ruelas on 01-28-2025 Platelets (Bld) [#/Vol] 261 10*3/uL 150-450 [facility] Potassium measurement (mass/ volume)Ordered By: Safia Ruelas on 01-28-2025 Potassium (Unsp spec) [Mass/Vol] 3.4 mmol/L 3.3-5.1 [facility] RBC Auto (Bld) [#/Vol]Ordere d By: Safia Ruelas on 01-28-2025 RBC (Bld) [#/Vol] 4.20 10*6/uL 4.2-5.4 [facility] Serum creatinine measurement (mass/volume)Ordered By: Safia Ruelas on 01-28-2025 Creatinine [Mass/Vol] 0.66 mg/dL Low 0.70-1.20 [facility] Serum glucose measurement (m ass/volume)Ordered By: Safia Ruelas on 01-28-2025 Glucose [Mass/Vol] 130 mg/dL High 70-99 [facility] Serum or plasma calcium dayna urement (mass/volume)Ordered By: Safia Ruelas on 01-28-2025 Calcium [Mass/Vol] 9.0 mg/dL 7.6-11.0 [facility] Serum or plasma urea nitroge n measurement (mass/volume)Ordered By: Safia Ruelas on 01-28-2025 Urea nitrogen [Mass/Vol] 13 mg/dL 4-19 [facility] Sodium levelOrdered By: Leonides Ruelas on 01-28-2025 Sodium [Moles/Vol] 140 mmol/L 133-145 [facility] White blood cell (WBC) count Ordered By: Safia Ruelas on 01-28-2025 WBC (Bld) [#/Vol] 8.4 10*3/uL 4.4-11.0 [facility] Absolute lymphocyte countOrd ered By: Safia Ruelas on 01-21-2025 Lymphocytes Auto (Unsp spec) [#/Vol] 3.26 10*3/uL 0.83-4.51 [facility] Anion gap in Serum or Plasma Ordered By: Safia Ruelas on 01-21-2025 Anion gap [Moles/Vol] 13 mmol/L 5-15 [facility] Automated lymphocyte count a s percentage of total leukocytesOrdered By: Balbirjean mariejosé antonio Ruelas on 01-21-2025 Lymphocytes/100 WBC Auto (Unsp spec) 38.3 % 19-41 [facility] BUN/creatinine ratioOrdered By: Safia Ruelas on 01-21-2025 Urea nitrogen/Creatinine [Mass ratio] 20.0 mg/mg 10-20 [facility] Basophil percentageOrdered B y: Safia Ruelas on 01-21-2025 Basophils/100 WBC (Bld) 0.6 % 0-1 [facility] Carbon dioxide, total [Moles /volume] in Central venous bloodOrdered By: Safia Ruelas on 01-21-2025 CO2 [Moles/Vol] 22.3 mmol/L 21.0-32.0 [facility] Chloride assayOrdered By: sherry Ruelas on 01-21-2025 Chloride [Moles/Vol] 102 mmol/L 98-108 [facility] Eosinophil percentageOrdered By: Safia Ruelas on 01-21-2025 Eosinophils/100 WBC (Bld) 2.1 % 0-5 [facility] Erythrocyte distribution wid th ratioOrdered By: Balbirjean mariejosé antonio Cheobonimelanie on 01-21-2025 Erythrocyte distribution width (RBC) [Ratio] 14.4 % 11.6-14.6 [facility] Erythrocyte distribution wid th standard deviationOrdered By: Safia Ruelas on 01-21-2025 Erythrocyte distribution width (RBC) [Ratio] 47.1 fl High 35.1-43.9 [facility] Glomerular filtration rate ( GFR) estimation/1.73 sq m using serum, plasma, or whole bOrdered By: Safia Ruelas on 01-21-2025 GFR/1.73 sq M.predicted among non-blacks MDRD (S/P/Bld) [Vol rate/Area] 86 mL/min/{1.73_m2} >60 [facility] Hematocrit Auto (Bld) [Volum e fraction]Ordered By: [facility] on 01-21-2025 Hematocrit (Bld) [Volume fraction] 37.8 % 37-47 [facility] Hemoglobin measurementOrdere d By: Safia Ruelas on 01-21-2025 Hemoglobin (Bld) [Mass/Vol] 12.6 g/dL 12.0-15.0 [facility] Immature granulocytes/100 WB C Auto (Bld)Ordered By: Safia Ruelas on 01-21-2025 Immature granulocytes/100 WBC (Bld) 0.400 % 0.0-0.9 [facility] MCV (mean corpuscular volume ) determinationOrdered By: Safia Ruelas on 01-21-2025 MCV (RBC) [Entitic vol] 89.6 fL 81-99 [facility] Mean corpuscular hemoglobin (MCH) determinationOrdered By: jean marieblack [place] Ruelas on 01-21-2025 MCH (RBC) [Entitic mass] 29.9 pg 27.0-32.0 [facility] Monocyte percentageOrdered B y: Safia Ruelas on 01-21-2025 Monocytes/100 WBC (Bld) 6.9 % 0-10 [facility] Neutrophil percentageOrdered By: [facility] on 01-21-2025 Neutrophils/100 WBC (Bld) 51.7 % 47-70 [facility] Platelet countOrdered By: Balbir Ruelas on 01-21-2025 Platelets (Bld) [#/Vol] 280 10*3/uL 150-450 [facility] Potassium measurement (mass/ volume)Ordered By: Safia Ruelas on 01-21-2025 Potassium (Unsp spec) [Mass/Vol] 3.6 mmol/L 3.3-5.1 [facility] RBC Auto (Bld) [#/Vol]Ordere d By: Safia Ruelas on 01-21-2025 RBC (Bld) [#/Vol] 4.22 10*6/uL 4.2-5.4 [facility] Serum creatinine measurement (mass/volume)Ordered By: Safia Ruelas on 01-21-2025 Creatinine [Mass/Vol] 0.71 mg/dL 0.70-1.20 [facility] Serum glucose measurement (m ass/volume)Ordered By: Safia Ruelas on 01-21-2025 Glucose [Mass/Vol] 126 mg/dL High 70-99 [facility] Serum or plasma calcium dayna urement (mass/volume)Ordered By: Safia Ruelas on 01-21-2025 Calcium [Mass/Vol] 9.0 mg/dL 7.6-11.0 [facility] Serum or plasma urea nitroge n measurement (mass/volume)Ordered By: Safia Ruelas on 01-21-2025 Urea nitrogen [Mass/Vol] 14 mg/dL 4-19 [facility] Sodium levelOrdered By: Leonides Ruelas on 01-21-2025 Sodium [Moles/Vol] 137 mmol/L 133-145 [facility] White blood cell (WBC) count Ordered By: Safia Ruelas on 01-21-2025 WBC (Bld) [#/Vol] 8.5 10*3/uL 4.4-11.0 [facility] Absolute lymphocyte countOrd ered By: Safia Ruelas on 01-14-2025 Lymphocytes Auto (Unsp spec) [#/Vol] 2.54 10*3/uL 0.83-4.51 [facility] Anion gap in Serum or Plasma Ordered By: Safia Ruelas on 01-14-2025 Anion gap [Moles/Vol] 13 mmol/L 5-15 [facility] Automated lymphocyte count a s percentage of total leukocytesOrdered By: Safia Ruelas on 01-14-2025 Lymphocytes/100 WBC Auto (Unsp spec) 30.6 % 19-41 [facility] BUN/creatinine ratioOrdered By: Safia Ruelas on 01-14-2025 Urea nitrogen/Creatinine [Mass ratio] 16.0 mg/mg 10-20 [facility] Basophil percentageOrdered B y: Safia Ruelas on 01-14-2025 Basophils/100 WBC (Bld) 0.6 % 0-1 [facility] Carbon dioxide, total [Moles /volume] in Central venous bloodOrdered By: Safia Ruelas on 01-14-2025 CO2 [Moles/Vol] 22.8 mmol/L 21.0-32.0 [facility] Chloride assayOrdered By: Balbir Ruelas on 01-14-2025 Chloride [Moles/Vol] 104 mmol/L 98-108 [facility] Eosinophil percentageOrdered By: Safia Ruelas on 01-14-2025 Eosinophils/100 WBC (Bld) 2.2 % 0-5 [facility] Erythrocyte distribution wid th ratioOrdered By: Safia Ruelas on 01-14-2025 Erythrocyte distribution width (RBC) [Ratio] 14.6 % 11.6-14.6 [facility] Erythrocyte distribution wid th standard deviationOrdered By: Leonidesblack [place] Ruelas on 01-14-2025 Erythrocyte distribution width (RBC) [Ratio] 48.7 fl High 35.1-43.9 [facility] Glomerular filtration rate ( GFR) estimation/1.73 sq m using serum, plasma, or whole bOrdered By: Safia Ruelas on 01-14-2025 GFR/1.73 sq M.predicted among non-blacks MDRD (S/P/Bld) [Vol rate/Area] 84 mL/min/{1.73_m2} >60 [facility] Hematocrit Auto (Bld) [Volum e fraction]Ordered By: Safia Ruelas on 01-14-2025 Hematocrit (Bld) [Volume fraction] 37.6 % 37-47 [facility] Hemoglobin measurementOrdere d By: Safia Ruelas on 01-14-2025 Hemoglobin (Bld) [Mass/Vol] 12.1 g/dL 12.0-15.0 [facility] Immature granulocytes/100 WB C Auto (Bld)Ordered By: Safia Ruelas on 01-14-2025 Immature granulocytes/100 WBC (Bld) 0.500 % 0.0-0.9 [facility] MCV (mean corpuscular volume ) determinationOrdered By: Safia Ruelas on 01-14-2025 MCV (RBC) [Entitic vol] 90.8 fL 81-99 [facility] Mean corpuscular hemoglobin (MCH) determinationOrdered By: Safia Ruelas on 01-14-2025 MCH (RBC) [Entitic mass] 29.2 pg 27.0-32.0 [facility] Monocyte percentageOrdered B y: Safia Ruelas on 01-14-2025 Monocytes/100 WBC (Bld) 7.8 % 0-10 [facility] Neutrophil percentageOrdered By: Safia Ruelas on 01-14-2025 Neutrophils/100 WBC (Bld) 58.3 % 47-70 [facility] Platelet countOrdered By: Balbir Ruelas on 01-14-2025 Platelets (Bld) [#/Vol] 284 10*3/uL 150-450 [facility] Potassium measurement (mass/ volume)Ordered By: Safia Ruelas on 01-14-2025 Potassium (Unsp spec) [Mass/Vol] 3.5 mmol/L 3.3-5.1 [facility] RBC Auto (Bld) [#/Vol]Ordere d By: Safia Ruelas on 01-14-2025 RBC (Bld) [#/Vol] 4.14 10*6/uL Low 4.2-5.4 [facility] Serum creatinine measurement (mass/volume)Ordered By: Safia Ruelas on 01-14-2025 Creatinine [Mass/Vol] 0.73 mg/dL 0.70-1.20 [facility] Serum glucose measurement (m ass/volume)Ordered By: Safia Ruelas on 01-14-2025 Glucose [Mass/Vol] 137 mg/dL High 70-99 [facility] Serum or plasma calcium dayna urement (mass/volume)Ordered By: Safia Ruelas on 01-14-2025 Calcium [Mass/Vol] 8.8 mg/dL 7.6-11.0 [facility] Serum or plasma urea nitroge n measurement (mass/volume)Ordered By: Safia Ruelas on 01-14-2025 Urea nitrogen [Mass/Vol] 12 mg/dL 4-19 [facility] Sodium levelOrdered By: Leonides jiménezradha Jessenia on 01-14-2025 Sodium [Moles/Vol] 139 mmol/L 133-145 [facility] TSH DL <= 0.005 mIU/L QnOrde red By: Safia Ruelas on 01-14-2025 TSH Qn 1.730 uIU/mL 0.300-4.200 [facility] White blood cell (WBC) count Ordered By: Safia Ruelas on 01-14-2025 WBC (Bld) [#/Vol] 8.3 10*3/uL 4.4-11.0 [facility] Absolute lymphocyte countOrd ered By: Safia Ruelas on 01-07-2025 Lymphocytes Auto (Unsp spec) [#/Vol] 2.90 10*3/uL 0.83-4.51 [facility] Anion gap in Serum or Plasma Ordered By: Safia Ruelas on 01-07-2025 Anion gap [Moles/Vol] 12 mmol/L 5-15 [facility] Automated lymphocyte count a s percentage of total leukocytesOrdered By: Safia Ruelas on 01-07-2025 Lymphocytes/100 WBC Auto (Unsp spec) 36.3 % 19-41 [facility] BUN/creatinine ratioOrdered By: Safia Ruelas on 01-07-2025 Urea nitrogen/Creatinine [Mass ratio] 15.4 mg/mg 10-20 [facility] Basophil percentageOrdered B y: Safia Ruelas on 01-07-2025 Basophils/100 WBC (Bld) 0.6 % 0-1 [facility] Carbon dioxide, total [Moles /volume] in Central venous bloodOrdered By: Safia Ruelas on 01-07-2025 CO2 [Moles/Vol] 23.2 mmol/L 21.0-32.0 [facility] Chloride assayOrdered By: Balbir Ruelas on 01-07-2025 Chloride [Moles/Vol] 104 mmol/L 98-108 [facility] Eosinophil percentageOrdered By: Safia Ruelas on 01-07-2025 Eosinophils/100 WBC (Bld) 2.3 % 0-5 [facility] Erythrocyte distribution wid th ratioOrdered By: jean marieblack [place] city[place] Ruelas on 01-07-2025 Erythrocyte distribution width (RBC) [Ratio] 14.6 % 11.6-14.6 [facility] Erythrocyte distribution wid th standard deviationOrdered By: Leonidesblack [place] city[place] Ruelas on 01-07-2025 Erythrocyte distribution width (RBC) [Ratio] 48.5 fl High 35.1-43.9 [facility] Glomerular filtration rate ( GFR) estimation/1.73 sq m using serum, plasma, or whole bOrdered By: Safia Ruelas on 01-07-2025 GFR/1.73 sq M.predicted among non-blacks MDRD (S/P/Bld) [Vol rate/Area] 86 mL/min/{1.73_m2} >60 [facility] Hematocrit Auto (Bld) [Volum e fraction]Ordered By: Safia Ruelas 01-07-2025 Hematocrit (Bld) [Volume fraction] 36.6 % Low 37-47 [facility] Hemoglobin measurementOrdere d By: Safia Ruelas on 01-07-2025 Hemoglobin (Bld) [Mass/Vol] 11.9 g/dL Low 12.0-15.0 [facility] Immature granulocytes/100 WB C Auto (Bld)Ordered By: Safia Ruelas on 01-07-2025 Immature granulocytes/100 WBC (Bld) 0.300 % 0.0-0.9 [facility] MCV (mean corpuscular volume ) determinationOrdered By: Safia Ruelas 01-07-2025 MCV (RBC) [Entitic vol] 90.6 fL 81-99 [facility] Mean corpuscular hemoglobin (MCH) determinationOrdered By: Safia Ruelas on 01-07-2025 MCH (RBC) [Entitic mass] 29.5 pg 27.0-32.0 [facility] Monocyte percentageOrdered B y: Safia Ruelas on 01-07-2025 Monocytes/100 WBC (Bld) 7.9 % 0-10 [facility] Neutrophil percentageOrdered By: Safia Ruelas on 01-07-2025 Neutrophils/100 WBC (Bld) 52.6 % 47-70 [facility] Platelet countOrdered By: Balbir Ruelas on 01-07-2025 Platelets (Bld) [#/Vol] 263 10*3/uL 150-450 [facility] Potassium measurement (mass/ volume)Ordered By: Safia Ruelas on 01-07-2025 Potassium (Unsp spec) [Mass/Vol] 3.5 mmol/L 3.3-5.1 [facility] RBC Auto (Bld) [#/Vol]Ordere d By: Safia Ruelas on 01-07-2025 RBC (Bld) [#/Vol] 4.04 10*6/uL Low 4.2-5.4 [facility] Serum creatinine measurement (mass/volume)Ordered By: Safia Ruelas on 01-07-2025 Creatinine [Mass/Vol] 0.71 mg/dL 0.70-1.20 [facility] Serum glucose measurement (m ass/volume)Ordered By: Safia Ruelas on 01-07-2025 Glucose [Mass/Vol] 139 mg/dL High 70-99 [facility] Serum or plasma calcium dayna urement (mass/volume)Ordered By: Safia Ruelas on 01-07-2025 Calcium [Mass/Vol] 8.5 mg/dL 7.6-11.0 [facility] Serum or plasma urea nitroge n measurement (mass/volume)Ordered By: Safia Ruelas on 01-07-2025 Urea nitrogen [Mass/Vol] 11 mg/dL 4-19 [facility] Sodium levelOrdered By: Leonides Ruelas on 01-07-2025 Sodium [Moles/Vol] 139 mmol/L 133-145 [facility] White blood cell (WBC) count Ordered By: Safia Ruelas on 01-07-2025 WBC (Bld) [#/Vol] 8.0 10*3/uL 4.4-11.0 [facility] Absolute lymphocyte countOrd ered By: Safia Ruelas on 12-31-2024 Lymphocytes Auto (Unsp spec) [#/Vol] 2.27 10*3/uL 0.83-4.51 [facility] Anion gap in Serum or Plasma Ordered By: Safia Ruelas on 12-31-2024 Anion gap [Moles/Vol] 14 mmol/L 5-15 [facility] Automated lymphocyte count a s percentage of total leukocytesOrdered By: Safia Ruelas on 12-31-2024 Lymphocytes/100 WBC Auto (Unsp spec) 32.9 % 19-41 [facility] BUN/creatinine ratioOrdered By: Safia Ruelas on 12-31-2024 Urea nitrogen/Creatinine [Mass ratio] 15.0 mg/mg 10-20 [facility] Basophil percentageOrdered B y: Safia Ruelas on 12-31-2024 Basophils/100 WBC (Bld) 0.6 % 0-1 [facility] Carbon dioxide, total [Moles /volume] in Central venous bloodOrdered By: Safia Ruelas on 12-31-2024 CO2 [Moles/Vol] 22.1 mmol/L 21.0-32.0 [facility] Chloride assayOrdered By: Balbir Ruelas on 12-31-2024 Chloride [Moles/Vol] 103 mmol/L 98-108 [facility] Eosinophil percentageOrdered By: Safia Ruelas on 12-31-2024 Eosinophils/100 WBC (Bld) 3.2 % 0-5 [facility] Erythrocyte distribution wid th ratioOrdered By: Safia Ruelas on 12-31-2024 Erythrocyte distribution width (RBC) [Ratio] 14.6 % 11.6-14.6 [facility] Erythrocyte distribution wid th standard deviationOrdered By: Safia Ruelas on 12-31-2024 Erythrocyte distribution width (RBC) [Ratio] 48.9 fl High 35.1-43.9 [facility] Glomerular filtration rate ( GFR) estimation/1.73 sq m using serum, plasma, or whole bOrdered By: Safia Ruelas on 12-31-2024 GFR/1.73 sq M.predicted among non-blacks MDRD (S/P/Bld) [Vol rate/Area] 88 mL/min/{1.73_m2} >60 [facility] Hematocrit Auto (Bld) [Volum e fraction]Ordered By: [facility] R[facility] on 12-31-2024 Hematocrit (Bld) [Volume fraction] 36.8 % Low 37-47 [facility] Hemoglobin A1c percentageOrd ered By: Leonidesblack [place] Ruelas on 12-31-2024 HbA1c (Bld) [Mass fraction] 6.5 % High <5.7 [facility] Hemoglobin measurementOrdere d By: Safia Ruelas on 12-31-2024 Hemoglobin (Bld) [Mass/Vol] 11.8 g/dL Low 12.0-15.0 [facility] Immature granulocytes/100 WB C Auto (Bld)Ordered By: Safia Ruelas on 12-31-2024 Immature granulocytes/100 WBC (Bld) 0.300 % 0.0-0.9 [facility] MCV (mean corpuscular volume ) determinationOrdered By: Safia Ruelas on 12-31-2024 MCV (RBC) [Entitic vol] 91.3 fL 81-99 [facility] Mean corpuscular hemoglobin (MCH) determinationOrdered By: sherry Ruelas on 12-31-2024 MCH (RBC) [Entitic mass] 29.3 pg 27.0-32.0 [facility] Monocyte percentageOrdered B y: Safia Ruelas on 12-31-2024 Monocytes/100 WBC (Bld) 9.4 % 0-10 [facility] Neutrophil percentageOrdered By: Safia Ruelas on 12-31-2024 Neutrophils/100 WBC (Bld) 53.6 % 47-70 [facility] Platelet countOrdered By: Balbir sherry Westonmelanie on 12-31-2024 Platelets (Bld) [#/Vol] 232 10*3/uL 150-450 [facility] Potassium measurement (mass/ volume)Ordered By: Safia Ruelas on 12-31-2024 Potassium (Unsp spec) [Mass/Vol] 3.5 mmol/L 3.3-5.1 [facility] RBC Auto (Bld) [#/Vol]Ordere d By: Safia Cheoquyen on 12-31-2024 RBC (Bld) [#/Vol] 4.03 10*6/uL Low 4.2-5.4 [facility] Serum creatinine measurement (mass/volume)Ordered By: Balbirjean mariedesireeskye Griderbonimelanie on 12-31-2024 Creatinine [Mass/Vol] 0.70 mg/dL 0.70-1.20 [facility] Serum glucose measurement (m ass/volume)Ordered By: Safia Griderbonimelanie on 12-31-2024 Glucose [Mass/Vol] 142 mg/dL High 70-99 [facility] Serum or plasma calcium dayna urement (mass/volume)Ordered By: Safia Cheoquyen on 12-31-2024 Calcium [Mass/Vol] 8.4 mg/dL 7.6-11.0 [facility] Serum or plasma urea nitroge n measurement (mass/volume)Ordered By: Balbirsherry Griderbonimelanie on 12-31-2024 Urea nitrogen [Mass/Vol] 10 mg/dL 4-19 [facility] Sodium levelOrdered By: Leonides chou Cheobonimelanie on 12-31-2024 Sodium [Moles/Vol] 139 mmol/L 133-145 [facility] White blood cell (WBC) count Ordered By: Balbirjean mariejosé antonio Cheobonimelanie on 12-31-2024 WBC (Bld) [#/Vol] 6.9 10*3/uL 4.4-11.0 [facility] Absolute lymphocyte countOrd ered By: Safai Cheobonimelanie on 12-24-2024 Lymphocytes Auto (Unsp spec) [#/Vol] 2.54 10*3/uL 0.83-4.51 [facility] Anion gap in Serum or Plasma Ordered By: Safia Ruelas on 12-24-2024 Anion gap [Moles/Vol] 14 mmol/L 5-15 [facility] Automated lymphocyte count a s percentage of total leukocytesOrdered By: Safia Ruelas on 12-24-2024 Lymphocytes/100 WBC Auto (Unsp spec) 28.0 % 19-41 [facility] BUN/creatinine ratioOrdered By: Safia Ruelas on 12-24-2024 Urea nitrogen/Creatinine [Mass ratio] 18.4 mg/mg 10-20 [facility] Basophil percentageOrdered B y: Safia Ruelas on 12-24-2024 Basophils/100 WBC (Bld) 0.8 % 0-1 [facility] Carbon dioxide, total [Moles /volume] in Central venous bloodOrdered By: Safia Ruelas on 12-24-2024 CO2 [Moles/Vol] 22.1 mmol/L 21.0-32.0 [facility] Chloride assayOrdered By: Balbir Ruelsa on 12-24-2024 Chloride [Moles/Vol] 101 mmol/L 98-108 [facility] Eosinophil percentageOrdered By: Safia Ruelas on 12-24-2024 Eosinophils/100 WBC (Bld) 2.6 % 0-5 [facility] Erythrocyte distribution wid th ratioOrdered By: Safia Ruelas on 12-24-2024 Erythrocyte distribution width (RBC) [Ratio] 14.4 % 11.6-14.6 [facility] Erythrocyte distribution wid th standard deviationOrdered By: Safia Ruelas on 12-24-2024 Erythrocyte distribution width (RBC) [Ratio] 48.8 fl High 35.1-43.9 [facility] Glomerular filtration rate ( GFR) estimation/1.73 sq m using serum, plasma, or whole bOrdered By: Safia Ruelas on 12-24-2024 GFR/1.73 sq M.predicted among non-blacks MDRD (S/P/Bld) [Vol rate/Area] 83 mL/min/{1.73_m2} >60 [facility] Hematocrit Auto (Bld) [Volum e fraction]Ordered By: Safia Ruelas on 12-24-2024 Hematocrit (Bld) [Volume fraction] 37.9 % 37-47 [facility] Hemoglobin measurementOrdere d By: Balbirjean mariejosé antonio Cheobonimelanie on 12-24-2024 Hemoglobin (Bld) [Mass/Vol] 12.2 g/dL 12.0-15.0 [facility] Immature granulocytes/100 WB C Auto (Bld)Ordered By: Safia Griderbonimelanie on 12-24-2024 Immature granulocytes/100 WBC (Bld) 0.400 % 0.0-0.9 [facility] MCV (mean corpuscular volume ) determinationOrdered By: Safia Ruelas on 12-24-2024 MCV (RBC) [Entitic vol] 92.2 fL 81-99 [facility] Mean corpuscular hemoglobin (MCH) determinationOrdered By: Safia Griderbonimelanie on 12-24-2024 MCH (RBC) [Entitic mass] 29.7 pg 27.0-32.0 [facility] Monocyte percentageOrdered B y: Leonidesdesireeskye Griderbonimelanie on 12-24-2024 Monocytes/100 WBC (Bld) 8.7 % 0-10 [facility] Neutrophil percentageOrdered By: Balbirjean mariejosé antonio Cheobonimelanie on 12-24-2024 Neutrophils/100 WBC (Bld) 59.5 % 47-70 [facility] Platelet countOrdered By: Balbir sherry Cheobonimelanie on 12-24-2024 Platelets (Bld) [#/Vol] 256 10*3/uL 150-450 [facility] Potassium measurement (mass/ volume)Ordered By: Safia Ruelas on 12-24-2024 Potassium (Unsp spec) [Mass/Vol] 3.4 mmol/L 3.3-5.1 [facility] RBC Auto (Bld) [#/Vol]Ordere d By: Leonidesdesireeskye Griderbonimelanie on 12-24-2024 RBC (Bld) [#/Vol] 4.11 10*6/uL Low 4.2-5.4 [facility] Serum creatinine measurement (mass/volume)Ordered By: Safia Ruelas on 12-24-2024 Creatinine [Mass/Vol] 0.73 mg/dL 0.70-1.20 [facility] Serum glucose measurement (m ass/volume)Ordered By: Safia Cheobonimelanie on 12-24-2024 Glucose [Mass/Vol] 142 mg/dL High 70-99 [facility] Serum or plasma calcium dayna urement (mass/volume)Ordered By: Balbirjean mariedesireeskye Griderbonimelanie on 12-24-2024 Calcium [Mass/Vol] 9.1 mg/dL 7.6-11.0 [facility] Serum or plasma urea nitroge n measurement (mass/volume)Ordered By: Safia Griderbonimelanie on 12-24-2024 Urea nitrogen [Mass/Vol] 13 mg/dL 4-19 [facility] Sodium levelOrdered By: Leonides chou Cheobonimelanie on 12-24-2024 Sodium [Moles/Vol] 137 mmol/L 133-145 [facility] White blood cell (WBC) count Ordered By: Leonidesdesireeskye Griderbonimelanie on 12-24-2024 WBC (Bld) [#/Vol] 9.1 10*3/uL 4.4-11.0 [facility] Absolute lymphocyte countOrd ered By: Balbirjean mariedesireeskye Griderbonimelanie on 12-17-2024 Lymphocytes Auto (Unsp spec) [#/Vol] 2.94 10*3/uL 0.83-4.51 [facility] Anion gap in Serum or Plasma Ordered By: Safia Griderbonimelanie on 12-17-2024 Anion gap [Moles/Vol] 15 mmol/L 5-15 [facility] Automated lymphocyte count a s percentage of total leukocytesOrdered By: Safia Ruelas on 12-17-2024 Lymphocytes/100 WBC Auto (Unsp spec) 30.5 % 19-41 [facility] BUN/creatinine ratioOrdered By: Balbirjean mariedesireeskye Griderbonimelanie on 12-17-2024 Urea nitrogen/Creatinine [Mass ratio] 23.4 mg/mg High 10-20 [facility] Basophil percentageOrdered B y: Leonidesdesireeskye Griderbonimelanie on 12-17-2024 Basophils/100 WBC (Bld) 0.7 % 0-1 [facility] Carbon dioxide, total [Moles /volume] in Central venous bloodOrdered By: Safia Ruelas on 12-17-2024 CO2 [Moles/Vol] 22.1 mmol/L 21.0-32.0 [facility] Chloride assayOrdered By: Balbir Ruelas on 12-17-2024 Chloride [Moles/Vol] 102 mmol/L 98-108 [facility] Eosinophil percentageOrdered By: Safia Ruelas 12-17-2024 Eosinophils/100 WBC (Bld) 2.3 % 0-5 [facility] Erythrocyte distribution wid th ratioOrdered By: jean marieblack [place] Ruelas on 12-17-2024 Erythrocyte distribution width (RBC) [Ratio] 14.1 % 11.6-14.6 [facility] Erythrocyte distribution wid th standard deviationOrdered By: Leonidesblack [place] Ruelas on 12-17-2024 Erythrocyte distribution width (RBC) [Ratio] 47.3 fl High 35.1-43.9 [facility] Glomerular filtration rate ( GFR) estimation/1.73 sq m using serum, plasma, or whole bOrdered By: Safia Ruelas on 12-17-2024 GFR/1.73 sq M.predicted among non-blacks MDRD (S/P/Bld) [Vol rate/Area] 77 mL/min/{1.73_m2} >60 [facility] Hematocrit Auto (Bld) [Volum e fraction]Ordered By: Safia Ruelas 12-17-2024 Hematocrit (Bld) [Volume fraction] 40.2 % 37-47 [facility] Hemoglobin measurementOrdere d By: Safia Ruelas on 12-17-2024 Hemoglobin (Bld) [Mass/Vol] 12.7 g/dL 12.0-15.0 [facility] Immature granulocytes/100 WB C Auto (Bld)Ordered By: Safia Ruelas 12-17-2024 Immature granulocytes/100 WBC (Bld) 0.400 % 0.0-0.9 [facility] MCV (mean corpuscular volume ) determinationOrdered By: Safia Ruelas 12-17-2024 MCV (RBC) [Entitic vol] 92.2 fL 81-99 [facility] Mean corpuscular hemoglobin (MCH) determinationOrdered By: Safia Ruelas on 12-17-2024 MCH (RBC) [Entitic mass] 29.1 pg 27.0-32.0 [facility] Monocyte percentageOrdered B y: Safia Ruelas on 12-17-2024 Monocytes/100 WBC (Bld) 8.6 % 0-10 [facility] Neutrophil percentageOrdered By: Safia Ruelas on 12-17-2024 Neutrophils/100 WBC (Bld) 57.5 % 47-70 [facility] Platelet countOrdered By: Balbir Ruelas on 12-17-2024 Platelets (Bld) [#/Vol] 287 10*3/uL 150-450 [facility] Potassium measurement (mass/ volume)Ordered By: Safia Ruelas on 12-17-2024 Potassium (Unsp spec) [Mass/Vol] 3.5 mmol/L 3.3-5.1 [facility] RBC Auto (Bld) [#/Vol]Ordere d By: Safia Ruelas on 12-17-2024 RBC (Bld) [#/Vol] 4.36 10*6/uL 4.2-5.4 [facility] Serum creatinine measurement (mass/volume)Ordered By: Safia Ruelas on 12-17-2024 Creatinine [Mass/Vol] 0.78 mg/dL 0.70-1.20 [facility] Serum glucose measurement (m ass/volume)Ordered By: Safia Ruelas on 12-17-2024 Glucose [Mass/Vol] 125 mg/dL High 70-99 [facility] Serum or plasma calcium dayna urement (mass/volume)Ordered By: Safia Ruelas on 12-17-2024 Calcium [Mass/Vol] 9.2 mg/dL 7.6-11.0 [facility] Serum or plasma urea nitroge n measurement (mass/volume)Ordered By: Safia Ruelas on 12-17-2024 Urea nitrogen [Mass/Vol] 18 mg/dL 4-19 [facility] Sodium levelOrdered By: Leonides Ruelas on 12-17-2024 Sodium [Moles/Vol] 139 mmol/L 133-145 [facility] White blood cell (WBC) count Ordered By: Safia Ruelas on 12-17-2024 WBC (Bld) [#/Vol] 9.6 10*3/uL 4.4-11.0 [facility] Absolute lymphocyte countOrd ered By: Safia Ruelas on 12-10-2024 Lymphocytes Auto (Unsp spec) [#/Vol] 2.59 10*3/uL 0.83-4.51 [facility] Anion gap in Serum or Plasma Ordered By: Safia Ruelas on 12-10-2024 Anion gap [Moles/Vol] 15 mmol/L 5-15 [facility] Automated lymphocyte count a s percentage of total leukocytesOrdered By: Safia Ruelas on 12-10-2024 Lymphocytes/100 WBC Auto (Unsp spec) 30.2 % 19-41 [facility] BUN/creatinine ratioOrdered By: Safia Ruelas on 12-10-2024 Urea nitrogen/Creatinine [Mass ratio] 25.6 mg/mg High 10-20 [facility] Basophil percentageOrdered B y: Safia Ruelas on 12-10-2024 Basophils/100 WBC (Bld) 0.9 % 0-1 [facility] Carbon dioxide, total [Moles /volume] in Central venous bloodOrdered By: Safia Ruelas on 12-10-2024 CO2 [Moles/Vol] 21.7 mmol/L 21.0-32.0 [facility] Chloride assayOrdered By: sherry Cheoquyen on 12-10-2024 Chloride [Moles/Vol] 101 mmol/L 98-108 [facility] Eosinophil percentageOrdered By: Safia Ruelas on 12-10-2024 Eosinophils/100 WBC (Bld) 1.9 % 0-5 [facility] Erythrocyte distribution wid th ratioOrdered By: Balbirjean mariejosé antonio Cheobonimelanie on 12-10-2024 Erythrocyte distribution width (RBC) [Ratio] 13.7 % 11.6-14.6 [facility] Erythrocyte distribution wid th standard deviationOrdered By: sherry Ruelas on 12-10-2024 Erythrocyte distribution width (RBC) [Ratio] 46.8 fl High 35.1-43.9 [facility] Glomerular filtration rate ( GFR) estimation/1.73 sq m using serum, plasma, or whole bOrdered By: Safia Ruelas on 12-10-2024 GFR/1.73 sq M.predicted among non-blacks MDRD (S/P/Bld) [Vol rate/Area] 72 mL/min/{1.73_m2} >60 [facility] Hematocrit Auto (Bld) [Volum e fraction]Ordered By: [facility] Gridermelanie on 12-10-2024 Hematocrit (Bld) [Volume fraction] 38.8 % 37-47 [facility] Hemoglobin measurementOrdere d By: sherry Ruelas on 12-10-2024 Hemoglobin (Bld) [Mass/Vol] 12.3 g/dL 12.0-15.0 [facility] Immature granulocytes/100 WB C Auto (Bld)Ordered By: sherry Ruelas on 12-10-2024 Immature granulocytes/100 WBC (Bld) 0.500 % 0.0-0.9 [facility] MCV (mean corpuscular volume ) determinationOrdered By: Safia Ruelas on 12-10-2024 MCV (RBC) [Entitic vol] 93.3 fL 81-99 [facility] Mean corpuscular hemoglobin (MCH) determinationOrdered By: jean marieblack [place] Ruelas on 12-10-2024 MCH (RBC) [Entitic mass] 29.6 pg 27.0-32.0 [facility] Monocyte percentageOrdered B y: jean marieblack [place] Ruelas on 12-10-2024 Monocytes/100 WBC (Bld) 8.2 % 0-10 [facility] Neutrophil percentageOrdered By: [facility] Gridermelanie on 12-10-2024 Neutrophils/100 WBC (Bld) 58.3 % 47-70 [facility] Platelet countOrdered By: Balbir Ruelas on 12-10-2024 Platelets (Bld) [#/Vol] 247 10*3/uL 150-450 [facility] Potassium measurement (mass/ volume)Ordered By: Safia Ruelas on 12-10-2024 Potassium (Unsp spec) [Mass/Vol] 3.8 mmol/L 3.3-5.1 [facility] RBC Auto (Bld) [#/Vol]Ordere d By: Safia Ruelas on 12-10-2024 RBC (Bld) [#/Vol] 4.16 10*6/uL Low 4.2-5.4 [facility] Serum creatinine measurement (mass/volume)Ordered By: Safia Ruelas on 12-10-2024 Creatinine [Mass/Vol] 0.82 mg/dL 0.70-1.20 [facility] Serum glucose measurement (m ass/volume)Ordered By: Safia Ruelas on 12-10-2024 Glucose [Mass/Vol] 149 mg/dL High 70-99 [facility] Serum or plasma calcium dayna urement (mass/volume)Ordered By: Safia Ruelas on 12-10-2024 Calcium [Mass/Vol] 9.1 mg/dL 7.6-11.0 [facility] Serum or plasma urea nitroge n measurement (mass/volume)Ordered By: Safia Ruelas on 12-10-2024 Urea nitrogen [Mass/Vol] 21 mg/dL High 4-19 [facility] Sodium levelOrdered By: Leonides jiménezradha Jessenia on 12-10-2024 Sodium [Moles/Vol] 137 mmol/L 133-145 [facility] White blood cell (WBC) count Ordered By: Safia Ruelas on 12-10-2024 WBC (Bld) [#/Vol] 8.6 10*3/uL 4.4-11.0 [facility] Absolute lymphocyte countOrd ered By: Safia Ruelas on 12-03-2024 Lymphocytes Auto (Unsp spec) [#/Vol] 2.81 10*3/uL 0.83-4.51 [facility] Anion gap in Serum or Plasma Ordered By: Safia Ruelas on 12-03-2024 Anion gap [Moles/Vol] 14 mmol/L 5-15 [facility] Automated lymphocyte count a s percentage of total leukocytesOrdered By: Safia Ruelas on 12-03-2024 Lymphocytes/100 WBC Auto (Unsp spec) 28.3 % 19-41 [facility] BUN/creatinine ratioOrdered By: Safia Ruelas on 12-03-2024 Urea nitrogen/Creatinine [Mass ratio] 28.4 mg/mg High 10-20 [facility] Basophil percentageOrdered B y: Safia Ruelas on 12-03-2024 Basophils/100 WBC (Bld) 0.6 % 0-1 [facility] Carbon dioxide, total [Moles /volume] in Central venous bloodOrdered By: Safia Ruelas on 12-03-2024 CO2 [Moles/Vol] 23.3 mmol/L 21.0-32.0 [facility] Chloride assayOrdered By: Balbir Ruelas on 12-03-2024 Chloride [Moles/Vol] 102 mmol/L 98-108 [facility] Eosinophil percentageOrdered By: Safia Ruelas on 12-03-2024 Eosinophils/100 WBC (Bld) 1.5 % 0-5 [facility] Erythrocyte distribution wid th ratioOrdered By: Safia Ruelas on 12-03-2024 Erythrocyte distribution width (RBC) [Ratio] 14.1 % 11.6-14.6 [facility] Erythrocyte distribution wid th standard deviationOrdered By: Safia Ruelas on 12-03-2024 Erythrocyte distribution width (RBC) [Ratio] 47.9 fl High 35.1-43.9 [facility] Glomerular filtration rate ( GFR) estimation/1.73 sq m using serum, plasma, or whole bOrdered By: Safia Ruelas on 12-03-2024 GFR/1.73 sq M.predicted among non-blacks MDRD (S/P/Bld) [Vol rate/Area] 65 mL/min/{1.73_m2} >60 [facility] Hematocrit Auto (Bld) [Volum e fraction]Ordered By: Safia Ruelas on 12-03-2024 Hematocrit (Bld) [Volume fraction] 40.0 % 37-47 [facility] Hemoglobin measurementOrdere d By: Safia Ruelas on 12-03-2024 Hemoglobin (Bld) [Mass/Vol] 12.9 g/dL 12.0-15.0 [facility] Immature granulocytes/100 WB C Auto (Bld)Ordered By: Safia Ruelas on 12-03-2024 Immature granulocytes/100 WBC (Bld) 0.300 % 0.0-0.9 [facility] MCV (mean corpuscular volume ) determinationOrdered By: Safia Ruelas on 12-03-2024 MCV (RBC) [Entitic vol] 91.3 fL 81-99 [facility] Mean corpuscular hemoglobin (MCH) determinationOrdered By: Safia Ruelas on 12-03-2024 MCH (RBC) [Entitic mass] 29.5 pg 27.0-32.0 [facility] Monocyte percentageOrdered B y: Safia Ruelas on 12-03-2024 Monocytes/100 WBC (Bld) 9.6 % 0-10 [facility] Neutrophil percentageOrdered By: Safia Ruelas on 12-03-2024 Neutrophils/100 WBC (Bld) 59.7 % 47-70 [facility] Platelet countOrdered By: Balbir jean mariejosé antonio Ruelas on 12-03-2024 Platelets (Bld) [#/Vol] 280 10*3/uL 150-450 [facility] Potassium measurement (mass/ volume)Ordered By: Safia Ruelas on 12-03-2024 Potassium (Unsp spec) [Mass/Vol] 4.0 mmol/L 3.3-5.1 [facility] RBC Auto (Bld) [#/Vol]Ordere d By: Safia Ruelas on 12-03-2024 RBC (Bld) [#/Vol] 4.38 10*6/uL 4.2-5.4 [facility] Serum creatinine measurement (mass/volume)Ordered By: Safia Ruelas on 12-03-2024 Creatinine [Mass/Vol] 0.89 mg/dL 0.70-1.20 [facility] Serum glucose measurement (m ass/volume)Ordered By: Safia Ruelas on 12-03-2024 Glucose [Mass/Vol] 77 mg/dL 70-99 [facility] Serum or plasma calcium dayna urement (mass/volume)Ordered By: Safia Cheoquyen on 12-03-2024 Calcium [Mass/Vol] 9.6 mg/dL 7.6-11.0 [facility] Serum or plasma urea nitroge n measurement (mass/volume)Ordered By: Balbirjean mariedesireeskye Griderbonimelanie on 12-03-2024 Urea nitrogen [Mass/Vol] 25 mg/dL High 4-19 [facility] Sodium levelOrdered By: Leonides chou Cheobonimelanie on 12-03-2024 Sodium [Moles/Vol] 139 mmol/L 133-145 [facility] TSH DL <= 0.005 mIU/L QnOrde red By: Safia Ruelas on 12-03-2024 TSH Qn 3.500 uIU/mL 0.300-4.200 [facility] White blood cell (WBC) count Ordered By: Balbirjean mariedesireeskye Griderbonimelanie on 12-03-2024 WBC (Bld) [#/Vol] 9.9 10*3/uL 4.4-11.0 [facility] Absolute lymphocyte countOrd ered By: Balbirjean mariejosé antonio Cheoquyen on 11-26-2024 Lymphocytes Auto (Unsp spec) [#/Vol] 2.99 10*3/uL 0.83-4.51 [facility] Absolute neutrophil countOrd ered By: Balbirjean mariedesireeskye Griderbonimelanie on 11-26-2024 Neutrophils (Bld) [#/Vol] 4.2 10*3/uL 2.0-7.7 [facility] Anion gap in Serum or Plasma Ordered By: Safia Cheobonimelaine on 11-26-2024 Anion gap [Moles/Vol] 13 mmol/L -15 [facility] Automated lymphocyte count a s percentage of total leukocytesOrdered By: Safia Cheobonimelanei on 11-26-2024 Lymphocytes/100 WBC Auto (Unsp spec) 37.1 % 19-41 [facility] BUN/creatinine ratioOrdered By: Bandarskye Griderbonimelanie on 11-26-2024 Urea nitrogen/Creatinine [Mass ratio] 24.3 mg/mg High 10-20 [facility] Basophil percentageOrdered B y: Safia Ruelas on 11-26-2024 Basophils/100 WBC (Bld) 0.7 % 0-1 [facility] Carbon dioxide, total [Moles /volume] in Central venous bloodOrdered By: Safia Ruelas on 11-26-2024 CO2 [Moles/Vol] 27.1 mmol/L 21.0-32.0 [facility] Chloride assayOrdered By: Balbir Ruelas on 11-26-2024 Chloride [Moles/Vol] 101 mmol/L 98-108 [facility] Eosinophil percentageOrdered By: Safia Ruelas on 11-26-2024 Eosinophils/100 WBC (Bld) 1.9 % 0-5 [facility] Erythrocyte distribution wid th ratioOrdered By: sherry Ruelas on 11-26-2024 Erythrocyte distribution width (RBC) [Ratio] 14.2 % 11.6-14.6 [facility] Erythrocyte distribution wid th standard deviationOrdered By: Safia Ruelas on 11-26-2024 Erythrocyte distribution width (RBC) [Ratio] 48.0 fl High 35.1-43.9 [facility] Glomerular filtration rate ( GFR) estimation/1.73 sq m using serum, plasma, or whole bOrdered By: Safia Ruelas on 11-26-2024 GFR/1.73 sq M.predicted among non-blacks MDRD (S/P/Bld) [Vol rate/Area] 63 mL/min/{1.73_m2} >60 [facility] Comment on above: mL/min/1.73m2 CKD-EP I Creatinine Equation (2020) Hematocrit Auto (Bld) [Volum e fraction]Ordered By: Safia Ruelas on 11-26-2024 Hematocrit (Bld) [Volume fraction] 42.7 % 37-47 [facility] Hemoglobin measurementOrdere d By: Safia Ruelas on 11-26-2024 Hemoglobin (Bld) [Mass/Vol] 13.6 g/dL 12.0-15.0 [facility] Immature granulocytes/100 WB C Auto (Bld)Ordered By: Safia Ruelas on 11-26-2024 Immature granulocytes/100 WBC (Bld) 0.500 % 0.0-0.9 [facility] Comment on above: IG% - Immature Granu locytes (promyelocytes, myelocytes and metamyelocytes) > 1% indicates that a LEFT SHIFT is Present. MCV (mean corpuscular volume ) determinationOrdered By: Safia Ruelas on 11-26-2024 MCV (RBC) [Entitic vol] 92.0 fL 81-99 [facility] Mean corpuscular hemoglobin (MCH) determinationOrdered By: sherry Ruelas on 11-26-2024 MCH (RBC) [Entitic mass] 29.3 pg 27.0-32.0 [facility] Mean corpuscular hemoglobin concentration (MCHC) determinationOrdered By: Safia Ruelas on 11-26-2024 MCHC (RBC) [Mass/Vol] 31.9 g/dL Low 32-36 [facility] Mean platelet volume determi nationOrdered By: Safia Ruelas on 11-26-2024 Platelet mean volume (Bld) [Entitic vol] 11.5 fL 6.2-12.0 [facility] Monocyte percentageOrdered B y: Safia Ruelas on 11-26-2024 Monocytes/100 WBC (Bld) 7.7 % 0-10 [facility] Neutrophil percentageOrdered By: Safia Ruelas on 11-26-2024 Neutrophils/100 WBC (Bld) 52.1 % 47-70 [facility] Nucleated red blood cell per centageOrdered By: Safia Ruelas on 11-26-2024 Nucleated RBC/100 WBC (Bld) [Ratio] 0 % 0-5 [facility] Platelet countOrdered By: Balbir jean mariejosé antonio Ruelas on 11-26-2024 Platelets (Bld) [#/Vol] 283 10*3/uL 150-450 [facility] Potassium measurement (mass/ volume)Ordered By: Safia Ruelas on 11-26-2024 Potassium (Unsp spec) [Mass/Vol] 3.8 mmol/L 3.3-5.1 [facility] RBC Auto (Bld) [#/Vol]Ordere d By: Safia Ruelas on 11-26-2024 RBC (Bld) [#/Vol] 4.64 10*6/uL 4.2-5.4 [facility] Serum creatinine measurement (mass/volume)Ordered By: Safia Ruelas on 11-26-2024 Creatinine [Mass/Vol] 0.92 mg/dL 0.70-1.20 [facility] Serum glucose measurement (m ass/volume)Ordered By: Safia Cheoquyen on 11-26-2024 Glucose [Mass/Vol] 97 mg/dL 70-99 [facility] Serum or plasma calcium dayna urement (mass/volume)Ordered By: Safia Cheoquyen on 11-26-2024 Calcium [Mass/Vol] 10.0 mg/dL 7.6-11.0 [facility] Serum or plasma urea nitroge n measurement (mass/volume)Ordered By: Safia Ruelas on 11-26-2024 Urea nitrogen [Mass/Vol] 22 mg/dL High 4-19 [facility] Sodium levelOrdered By: Leonides Ruelas on 11-26-2024 Sodium [Moles/Vol] 140 mmol/L 133-145 [facility] White blood cell (WBC) count Ordered By: Safia Ruelas on 11-26-2024 WBC (Bld) [#/Vol] 8.1 10*3/uL 4.4-11.0 [facility] Clostridium difficile detect ion by polymerase chain reactionOrdered By: Balbirjean mariedesireeskye Griderbonimelanie on 11-25-2024 C. difficile DNA CHUCKY+probe Ql (Unsp spec) [facility] Absolute lymphocyte countOrd ered By: Safia Cheoquyen on 11-19-2024 Lymphocytes Auto (Unsp spec) [#/Vol] 2.71 10*3/uL 0.83-4.51 [facility] Absolute neutrophil countOrd ered By: Bandarskye Griderbonimelanie on 11-19-2024 Neutrophils (Bld) [#/Vol] 5.2 10*3/uL 2.0-7.7 [facility] Anion gap in Serum or Plasma Ordered By: Safia Ruelas on 11-19-2024 Anion gap [Moles/Vol] 12 mmol/L 5-15 [facility] Automated lymphocyte count a s percentage of total leukocytesOrdered By: Safia Ruelas on 11-19-2024 Lymphocytes/100 WBC Auto (Unsp spec) 30.4 % 19-41 [facility] BUN/creatinine ratioOrdered By: Safia Ruelas on 11-19-2024 Urea nitrogen/Creatinine [Mass ratio] 25.0 mg/mg High 10-20 [facility] Basophil percentageOrdered B y: Safia Ruelas on 11-19-2024 Basophils/100 WBC (Bld) 0.6 % 0-1 [facility] Carbon dioxide, total [Moles /volume] in Central venous bloodOrdered By: Leonidesblack canyon cityskye Ruelas on 11-19-2024 CO2 [Moles/Vol] 25.5 mmol/L 21.0-32.0 [facility] Chloride assayOrdered By: Balbir Ruelas on 11-19-2024 Chloride [Moles/Vol] 101 mmol/L 98-108 [facility] Eosinophil percentageOrdered By: sherry Ruelas on 11-19-2024 Eosinophils/100 WBC (Bld) 2.1 % 0-5 [facility] Erythrocyte distribution wid th ratioOrdered By: jean marieblack [place] city[place]ye Ruelas on 11-19-2024 Erythrocyte distribution width (RBC) [Ratio] 13.9 % 11.6-14.6 [facility] Erythrocyte distribution wid th standard deviationOrdered By: Safia Ruelas on 11-19-2024 Erythrocyte distribution width (RBC) [Ratio] 46.6 fl High 35.1-43.9 [facility] Glomerular filtration rate ( GFR) estimation/1.73 sq m using serum, plasma, or whole bOrdered By: Safia Ruelas on 11-19-2024 GFR/1.73 sq M.predicted among non-blacks MDRD (S/P/Bld) [Vol rate/Area] 66 mL/min/{1.73_m2} >60 [facility] Comment on above: mL/min/1.73m2 CKD-EP I Creatinine Equation (2020) Hematocrit Auto (Bld) [Volum e fraction]Ordered By: Safia Ruelas on 11-19-2024 Hematocrit (Bld) [Volume fraction] 39.2 % 37-47 [facility] Hemoglobin measurementOrdere d By: Safia Ruelas on 11-19-2024 Hemoglobin (Bld) [Mass/Vol] 12.7 g/dL 12.0-15.0 [facility] Immature granulocytes/100 WB C Auto (Bld)Ordered By: Safia Ruelas on 11-19-2024 Immature granulocytes/100 WBC (Bld) 0.300 % 0.0-0.9 [facility] Comment on above: IG% - Immature Granu locytes (promyelocytes, myelocytes and metamyelocytes) > 1% indicates that a LEFT SHIFT is Present. MCV (mean corpuscular volume ) determinationOrdered By: Safia Ruelas on 11-19-2024 MCV (RBC) [Entitic vol] 91.4 fL 81-99 [facility] Mean corpuscular hemoglobin (MCH) determinationOrdered By: jean marieblack [place] city[place] Ruelas on 11-19-2024 MCH (RBC) [Entitic mass] 29.6 pg 27.0-32.0 [facility] Mean corpuscular hemoglobin concentration (MCHC) determinationOrdered By: Safia Ruelas on 11-19-2024 MCHC (RBC) [Mass/Vol] 32.4 g/dL 32-36 [facility] Mean platelet volume determi nationOrdered By: Safia Ruelas on 11-19-2024 Platelet mean volume (Bld) [Entitic vol] 11.5 fL 6.2-12.0 [facility] Monocyte percentageOrdered B y: Safia Ruelas on 11-19-2024 Monocytes/100 WBC (Bld) 7.8 % 0-10 [facility] Neutrophil percentageOrdered By: Safia Ruelas on 11-19-2024 Neutrophils/100 WBC (Bld) 58.8 % 47-70 [facility] Nucleated red blood cell per centageOrdered By: Safia Ruelas on 11-19-2024 Nucleated RBC/100 WBC (Bld) [Ratio] 0 % 0-5 [facility] Platelet countOrdered By: Balbir Ruelas on 11-19-2024 Platelets (Bld) [#/Vol] 300 10*3/uL 150-450 [facility] Potassium measurement (mass/ volume)Ordered By: Safia Cheoquyen on 11-19-2024 Potassium (Unsp spec) [Mass/Vol] 3.8 mmol/L 3.3-5.1 [facility] RBC Auto (Bld) [#/Vol]Ordere d By: Safia Ruelas on 11-19-2024 RBC (Bld) [#/Vol] 4.29 10*6/uL 4.2-5.4 [facility] Serum creatinine measurement (mass/volume)Ordered By: Safia Ruelas on 11-19-2024 Creatinine [Mass/Vol] 0.88 mg/dL 0.70-1.20 [facility] Serum glucose measurement (m ass/volume)Ordered By: Safia Ruelas on 11-19-2024 Glucose [Mass/Vol] 136 mg/dL High 70-99 [facility] Serum or plasma calcium dayna urement (mass/volume)Ordered By: Safia Ruelas on 11-19-2024 Calcium [Mass/Vol] 9.6 mg/dL 7.6-11.0 [facility] Serum or plasma urea nitroge n measurement (mass/volume)Ordered By: Safia Cheoquyen on 11-19-2024 Urea nitrogen [Mass/Vol] 22 mg/dL High 4-19 [facility] Sodium levelOrdered By: Leonides Ruelas on 11-19-2024 Sodium [Moles/Vol] 139 mmol/L 133-145 [facility] White blood cell (WBC) count Ordered By: Safia Cheoquyen on 11-19-2024 WBC (Bld) [#/Vol] 8.9 10*3/uL 4.4-11.0 [facility] Absolute lymphocyte countOrd ered By: Safia Cheobonimelanie on 11-12-2024 Lymphocytes Auto (Unsp spec) [#/Vol] 2.49 10*3/uL 0.83-4.51 [facility] Absolute neutrophil countOrd ered By: Safia Ruelas on 11-12-2024 Neutrophils (Bld) [#/Vol] 4.2 10*3/uL 2.0-7.7 [facility] Anion gap in Serum or Plasma Ordered By: Safia Ruelas on 11-12-2024 Anion gap [Moles/Vol] 12 mmol/L 5-15 [facility] Automated lymphocyte count a s percentage of total leukocytesOrdered By: Safia Ruelas on 11-12-2024 Lymphocytes/100 WBC Auto (Unsp spec) 31.9 % 19-41 [facility] BUN/creatinine ratioOrdered By: Safia Ruelas on 11-12-2024 Urea nitrogen/Creatinine [Mass ratio] 28.1 mg/mg High 10-20 [facility] Basophil percentageOrdered B y: Safia Ruelas on 11-12-2024 Basophils/100 WBC (Bld) 0.6 % 0-1 [facility] Carbon dioxide, total [Moles /volume] in Central venous bloodOrdered By: Safia Ruelas on 11-12-2024 CO2 [Moles/Vol] 25.1 mmol/L 21.0-32.0 [facility] Chloride assayOrdered By: Balbir Ruelas on 11-12-2024 Chloride [Moles/Vol] 102 mmol/L 98-108 [facility] Eosinophil percentageOrdered By: Safia Ruelas on 11-12-2024 Eosinophils/100 WBC (Bld) 2.8 % 0-5 [facility] Erythrocyte distribution wid th ratioOrdered By: Safia Ruelas on 11-12-2024 Erythrocyte distribution width (RBC) [Ratio] 13.8 % 11.6-14.6 [facility] Erythrocyte distribution wid th standard deviationOrdered By: Safia Ruelas on 11-12-2024 Erythrocyte distribution width (RBC) [Ratio] 46.7 fl High 35.1-43.9 [facility] Glomerular filtration rate ( GFR) estimation/1.73 sq m using serum, plasma, or whole bOrdered By: Safia Ruelas on 11-12-2024 GFR/1.73 sq M.predicted among non-blacks MDRD (S/P/Bld) [Vol rate/Area] 70 mL/min/{1.73_m2} >60 [facility] Comment on above: mL/min/1.73m2 CKD-EP I Creatinine Equation (2020) Hematocrit Auto (Bld) [Volum e fraction]Ordered By: Safia Ruelas on 11-12-2024 Hematocrit (Bld) [Volume fraction] 40.6 % 37-47 [facility] Hemoglobin measurementOrdere d By: Safia Ruelas on 11-12-2024 Hemoglobin (Bld) [Mass/Vol] 13.2 g/dL 12.0-15.0 [facility] Immature granulocytes/100 WB C Auto (Bld)Ordered By: jean marieblack [place] Ruelas on 11-12-2024 Immature granulocytes/100 WBC (Bld) 0.400 % 0.0-0.9 [facility] Comment on above: IG% - Immature Granu locytes (promyelocytes, myelocytes and metamyelocytes) > 1% indicates that a LEFT SHIFT is Present. MCV (mean corpuscular volume ) determinationOrdered By: Safia Ruelas on 11-12-2024 MCV (RBC) [Entitic vol] 92.1 fL 81-99 [facility] Mean corpuscular hemoglobin (MCH) determinationOrdered By: Safia Ruelas on 11-12-2024 MCH (RBC) [Entitic mass] 29.9 pg 27.0-32.0 [facility] Mean corpuscular hemoglobin concentration (MCHC) determinationOrdered By: Safia Ruelas on 11-12-2024 MCHC (RBC) [Mass/Vol] 32.5 g/dL 32-36 [facility] Mean platelet volume determi nationOrdered By: Safia Ruelas on 11-12-2024 Platelet mean volume (Bld) [Entitic vol] 11.7 fL 6.2-12.0 [facility] Monocyte percentageOrdered B y: Safia Ruelas on 11-12-2024 Monocytes/100 WBC (Bld) 10.0 % 0-10 [facility] Neutrophil percentageOrdered By: Safia Ruelas on 11-12-2024 Neutrophils/100 WBC (Bld) 54.3 % 47-70 [facility] Nucleated red blood cell per centageOrdered By: Safia Ruelas on 11-12-2024 Nucleated RBC/100 WBC (Bld) [Ratio] 0 % 0-5 [facility] Platelet countOrdered By: Balbir Ruelas on 11-12-2024 Platelets (Bld) [#/Vol] 304 10*3/uL 150-450 [facility] Potassium measurement (mass/ volume)Ordered By: Safia Ruelas on 11-12-2024 Potassium (Unsp spec) [Mass/Vol] 3.9 mmol/L 3.3-5.1 [facility] RBC Auto (Bld) [#/Vol]Ordere d By: Safia Ruelas on 11-12-2024 RBC (Bld) [#/Vol] 4.41 10*6/uL 4.2-5.4 [facility] Serum creatinine measurement (mass/volume)Ordered By: Safia Ruelas on 11-12-2024 Creatinine [Mass/Vol] 0.84 mg/dL 0.70-1.20 [facility] Serum glucose measurement (m ass/volume)Ordered By: Safia Ruelas on 11-12-2024 Glucose [Mass/Vol] 112 mg/dL High 70-99 [facility] Serum or plasma calcium dayna urement (mass/volume)Ordered By: Safia Ruelas on 11-12-2024 Calcium [Mass/Vol] 9.7 mg/dL 7.6-11.0 [facility] Serum or plasma urea nitroge n measurement (mass/volume)Ordered By: Safia Ruelas on 11-12-2024 Urea nitrogen [Mass/Vol] 24 mg/dL High 4-19 [facility] Sodium levelOrdered By: Leonides Ruelas on 11-12-2024 Sodium [Moles/Vol] 139 mmol/L 133-145 [facility] White blood cell (WBC) count Ordered By: Safia Ruelas on 11-12-2024 WBC (Bld) [#/Vol] 7.8 10*3/uL 4.4-11.0 [facility] Absolute lymphocyte countOrd ered By: Leonidesjosé antonio Cheobonimelanie on 11-05-2024 Lymphocytes Auto (Unsp spec) [#/Vol] 2.91 10*3/uL 0.83-4.51 [facility] Absolute neutrophil countOrd ered By: sherry Griderbonimelanie on 11-05-2024 Neutrophils (Bld) [#/Vol] 4.6 10*3/uL 2.0-7.7 [facility] Anion gap in Serum or Plasma Ordered By: Safia Ruelas on 11-05-2024 Anion gap [Moles/Vol] 13 mmol/L 5-15 [facility] Automated lymphocyte count a s percentage of total leukocytesOrdered By: Safia Ruelas on 11-05-2024 Lymphocytes/100 WBC Auto (Unsp spec) 33.7 % 19-41 [facility] BUN/creatinine ratioOrdered By: jean marieblack [place] Ruelas on 11-05-2024 Urea nitrogen/Creatinine [Mass ratio] 23.3 mg/mg High 10-20 [facility] Basophil percentageOrdered B y: Leonidesdesireeskye Griderbonimelanie on 11-05-2024 Basophils/100 WBC (Bld) 0.9 % 0-1 [facility] Carbon dioxide, total [Moles /volume] in Central venous bloodOrdered By: Safia Ruelas on 11-05-2024 CO2 [Moles/Vol] 24.2 mmol/L 21.0-32.0 [facility] Chloride assayOrdered By: Balbir jean mariejosé antonio Ruelas on 11-05-2024 Chloride [Moles/Vol] 102 mmol/L 98-108 [facility] Eosinophil percentageOrdered By: Safia Ruelas on 11-05-2024 Eosinophils/100 WBC (Bld) 2.7 % 0-5 [facility] Erythrocyte distribution wid th ratioOrdered By: Safia Ruelas on 11-05-2024 Erythrocyte distribution width (RBC) [Ratio] 13.9 % 11.6-14.6 [facility] Erythrocyte distribution wid th standard deviationOrdered By: Safia Ruelas on 11-05-2024 Erythrocyte distribution width (RBC) [Ratio] 47.1 fl High 35.1-43.9 [facility] Glomerular filtration rate ( GFR) estimation/1.73 sq m using serum, plasma, or whole bOrdered By: Safia Ruelas on 11-05-2024 GFR/1.73 sq M.predicted among non-blacks MDRD (S/P/Bld) [Vol rate/Area] 62 mL/min/{1.73_m2} >60 [facility] Comment on above: mL/min/1.73m2 CKD-EP I Creatinine Equation (2020) Hematocrit Auto (Bld) [Volum e fraction]Ordered By: Safia Ruelas on 11-05-2024 Hematocrit (Bld) [Volume fraction] 40.7 % 37-47 [facility] Hemoglobin measurementOrdere d By: Safia Ruelas on 11-05-2024 Hemoglobin (Bld) [Mass/Vol] 12.9 g/dL 12.0-15.0 [facility] Immature granulocytes/100 WB C Auto (Bld)Ordered By: Safia Ruelas on 11-05-2024 Immature granulocytes/100 WBC (Bld) 0.500 % 0.0-0.9 [facility] Comment on above: IG% - Immature Granu locytes (promyelocytes, myelocytes and metamyelocytes) > 1% indicates that a LEFT SHIFT is Present. MCV (mean corpuscular volume ) determinationOrdered By: Safia Ruelas on 11-05-2024 MCV (RBC) [Entitic vol] 92.9 fL 81-99 [facility] Mean corpuscular hemoglobin (MCH) determinationOrdered By: Safia Ruelas on 11-05-2024 MCH (RBC) [Entitic mass] 29.5 pg 27.0-32.0 [facility] Mean corpuscular hemoglobin concentration (MCHC) determinationOrdered By: Safia Ruelas on 11-05-2024 MCHC (RBC) [Mass/Vol] 31.7 g/dL Low 32-36 [facility] Mean platelet volume determi nationOrdered By: Safia Ruelas on 11-05-2024 Platelet mean volume (Bld) [Entitic vol] 11.2 fL 6.2-12.0 [facility] Monocyte percentageOrdered B y: Leonidesdesireeskye Griderbonimelanie on 11-05-2024 Monocytes/100 WBC (Bld) 8.6 % 0-10 [facility] Neutrophil percentageOrdered By: Safia Griderbonimelanie on 11-05-2024 Neutrophils/100 WBC (Bld) 53.6 % 47-70 [facility] Nucleated red blood cell per centageOrdered By: Safia Griderbonimelanie on 11-05-2024 Nucleated RBC/100 WBC (Bld) [Ratio] 0 % 0-5 [facility] Platelet countOrdered By: Balbir jean mariejosé antonio Ruelas on 11-05-2024 Platelets (Bld) [#/Vol] 318 10*3/uL 150-450 [facility] Potassium measurement (mass/ volume)Ordered By: Safia Ruelas on 11-05-2024 Potassium (Unsp spec) [Mass/Vol] 4.0 mmol/L 3.3-5.1 [facility] RBC Auto (Bld) [#/Vol]Ordere d By: Safia Ruelas on 11-05-2024 RBC (Bld) [#/Vol] 4.38 10*6/uL 4.2-5.4 [facility] Serum creatinine measurement (mass/volume)Ordered By: Safia Ruelas on 11-05-2024 Creatinine [Mass/Vol] 0.93 mg/dL 0.70-1.20 [facility] Serum glucose measurement (m ass/volume)Ordered By: Safia Ruelas on 11-05-2024 Glucose [Mass/Vol] 70 mg/dL 70-99 [facility] Serum or plasma calcium dayna urement (mass/volume)Ordered By: Safia Ruelas on 11-05-2024 Calcium [Mass/Vol] 9.5 mg/dL 7.6-11.0 [facility] Serum or plasma urea nitroge n measurement (mass/volume)Ordered By: Safia Westonmelanie on 11-05-2024 Urea nitrogen [Mass/Vol] 22 mg/dL High 4-19 [facility] Sodium levelOrdered By: Leonides Ruleas on 11-05-2024 Sodium [Moles/Vol] 139 mmol/L 133-145 [facility] White blood cell (WBC) count Ordered By: Safia Ruelas on 11-05-2024 WBC (Bld) [#/Vol] 8.6 10*3/uL 4.4-11.0 [facility] Absolute lymphocyte countOrd ered By: Safia Ruelas on 10-29-2024 Lymphocytes Auto (Unsp spec) [#/Vol] 2.69 10*3/uL 0.83-4.51 [facility] Absolute neutrophil countOrd ered By: Safia Ruelas on 10-29-2024 Neutrophils (Bld) [#/Vol] 4.5 10*3/uL 2.0-7.7 [facility] Anion gap in Serum or Plasma Ordered By: Safia Ruelas on 10-29-2024 Anion gap [Moles/Vol] 11 mmol/L 5-15 [facility] Automated lymphocyte count a s percentage of total leukocytesOrdered By: Safia Ruelas on 10-29-2024 Lymphocytes/100 WBC Auto (Unsp spec) 32.6 % 19-41 [facility] BUN/creatinine ratioOrdered By: Safia Ruelas on 10-29-2024 Urea nitrogen/Creatinine [Mass ratio] 25.2 mg/mg High 10-20 [facility] Basophil percentageOrdered B y: Safia Ruelas on 10-29-2024 Basophils/100 WBC (Bld) 0.7 % 0-1 [facility] Carbon dioxide, total [Moles /volume] in Central venous bloodOrdered By: Safia Cheobonimelanie on 10-29-2024 CO2 [Moles/Vol] 25.7 mmol/L 21.0-32.0 [facility] Chloride assayOrdered By: Balbir sherry Cheobonimelanie on 10-29-2024 Chloride [Moles/Vol] 102 mmol/L 98-108 [facility] Eosinophil percentageOrdered By: Safia Ruelas on 10-29-2024 Eosinophils/100 WBC (Bld) 2.1 % 0-5 [facility] Erythrocyte distribution wid th ratioOrdered By: Safia Ruelas on 10-29-2024 Erythrocyte distribution width (RBC) [Ratio] 13.6 % 11.6-14.6 [facility] Erythrocyte distribution wid th standard deviationOrdered By: Safia Ruelas on 10-29-2024 Erythrocyte distribution width (RBC) [Ratio] 46.6 fl High 35.1-43.9 [facility] Glomerular filtration rate ( GFR) estimation/1.73 sq m using serum, plasma, or whole bOrdered By: Safia Ruelas on 10-29-2024 GFR/1.73 sq M.predicted among non-blacks MDRD (S/P/Bld) [Vol rate/Area] 59 mL/min/{1.73_m2} Low >60 [facility] Comment on above: mL/min/1.73m2 CKD-EP I Creatinine Equation (2020) Hematocrit Auto (Bld) [Volum e fraction]Ordered By: Safia Ruelas on 10-29-2024 Hematocrit (Bld) [Volume fraction] 37.8 % 37-47 [facility] Hemoglobin measurementOrdere d By: Safia Ruelas on 10-29-2024 Hemoglobin (Bld) [Mass/Vol] 12.2 g/dL 12.0-15.0 [facility] Immature granulocytes/100 WB C Auto (Bld)Ordered By: Safia Ruelas 10-29-2024 Immature granulocytes/100 WBC (Bld) 0.400 % 0.0-0.9 [facility] Comment on above: IG% - Immature Granu locytes (promyelocytes, myelocytes and metamyelocytes) > 1% indicates that a LEFT SHIFT is Present. MCV (mean corpuscular volume ) determinationOrdered By: Safia Ruelas on 10-29-2024 MCV (RBC) [Entitic vol] 92.2 fL 81-99 [facility] Mean corpuscular hemoglobin (MCH) determinationOrdered By: Safia Ruelas 10-29-2024 MCH (RBC) [Entitic mass] 29.8 pg 27.0-32.0 [facility] Mean corpuscular hemoglobin concentration (MCHC) determinationOrdered By: Safia Cheoquyen on 10-29-2024 MCHC (RBC) [Mass/Vol] 32.3 g/dL 32-36 [facility] Mean platelet volume determi nationOrdered By: Safia Cheobonimelanie on 10-29-2024 Platelet mean volume (Bld) [Entitic vol] 11.1 fL 6.2-12.0 [facility] Monocyte percentageOrdered B y: Safia Ruelas on 10-29-2024 Monocytes/100 WBC (Bld) 9.9 % 0-10 [facility] Neutrophil percentageOrdered By: Balbirjean marieblack [place] city[place]ye Cheobonimelanie on 10-29-2024 Neutrophils/100 WBC (Bld) 54.3 % 47-70 [facility] Nucleated red blood cell per centageOrdered By: Balbirjean mariejosé antonio Cheoquyen on 10-29-2024 Nucleated RBC/100 WBC (Bld) [Ratio] 0 % 0-5 [facility] Platelet countOrdered By: Balbir sherry Cheoquyen on 10-29-2024 Platelets (Bld) [#/Vol] 283 10*3/uL 150-450 [facility] Potassium measurement (mass/ volume)Ordered By: Balbirjean mariedesireeskye Griderbonimelanie on 10-29-2024 Potassium (Unsp spec) [Mass/Vol] 3.9 mmol/L 3.3-5.1 [facility] RBC Auto (Bld) [#/Vol]Ordere d By: Safia Cheobonimelanie on 10-29-2024 RBC (Bld) [#/Vol] 4.10 10*6/uL Low 4.2-5.4 [facility] Serum creatinine measurement (mass/volume)Ordered By: Balbirjean mariedesireeskye Griderbonimelanie on 10-29-2024 Creatinine [Mass/Vol] 0.97 mg/dL 0.70-1.20 [facility] Serum glucose measurement (m ass/volume)Ordered By: Safia Ruelas on 10-29-2024 Glucose [Mass/Vol] 74 mg/dL 70-99 [facility] Serum or plasma calcium dayna urement (mass/volume)Ordered By: Safia Ruelas on 10-29-2024 Calcium [Mass/Vol] 9.5 mg/dL 7.6-11.0 [facility] Serum or plasma urea nitroge n measurement (mass/volume)Ordered By: Safia Ruelas on 10-29-2024 Urea nitrogen [Mass/Vol] 24 mg/dL High 4-19 [facility] Sodium levelOrdered By: Leonides Ruelas on 10-29-2024 Sodium [Moles/Vol] 138 mmol/L 133-145 [facility] White blood cell (WBC) count Ordered By: Safia Ruelas on 10-29-2024 WBC (Bld) [#/Vol] 8.3 10*3/uL 4.4-11.0 [facility] Bilirubin Test strip Ql (U)O rdered By: aSfia Ruelas on 10-23-2024 Bilirubin Ql (U) Negative Negative [facility] Ketones Test strip Ql (U)Ord ered By: Safia Ruelas on 10-23-2024 Ketones Ql (U) Negative Negative [facility] Nitrite Test strip Ql (U)Ord ered By: Safia Ruelas on 10-23-2024 Nitrite Ql (U) Positive High Negative [facility] Protein Test strip Ql (U)Ord ered By: Safia Ruelas on 10-23-2024 Protein Ql (U) 15 mg/dl High Negative [facility] Urine clarityOrdered By: Augusto Ruelas on 10-23-2024 Clarity (U) Clear Clear [facility] Urine color determinationOrd ered By: Safia Ruelas on 10-23-2024 Color (U) Yellow Yellow [facility] Urine cultureOrdered By: Augusto Ruelas on 10-23-2024 Bacteria identified Cx Nom (U) Klebsiella pneumoniae sp pneum Abnormal [facility] Urine glucose detectionOrder ed By: Safia Ruelas on 10-23-2024 Glucose Ql (U) Normal mg/dl Normal [facility] Urine leukocyte esterase det ection by dipstickOrdered By: Safia Ruelas on 10-23-2024 Leukocyte esterase Test strip Ql (U) 500 /ul High Negative [facility] Urine pHOrdered By: Mazin Ruelas on 10-23-2024 pH (U) 6.0 [pH] 5.0 - 8.0 [facility] Urine specific gravity measu rementOrdered By: Safia Ruelas on 10-23-2024 Specific gravity (U) [Rel density] 1.010 1.002-1.030 [facility] Urine urobilinogen measureme ntOrdered By: Safia Ruelas on 10-23-2024 Urobilinogen Ql (U) Normal mg/dl Normal [facility] Absolute lymphocyte countOrd ered By: Safia Ruelas on 10-22-2024 Lymphocytes Auto (Unsp spec) [#/Vol] 3.07 10*3/uL 0.83-4.51 [facility] Absolute neutrophil countOrd ered By: Safia Ruelas on 10-22-2024 Neutrophils (Bld) [#/Vol] 4.6 10*3/uL 2.0-7.7 [facility] Anion gap in Serum or Plasma Ordered By: Safia Ruelas on 10-22-2024 Anion gap [Moles/Vol] 15 mmol/L 5-15 [facility] Automated lymphocyte count a s percentage of total leukocytesOrdered By: Safia Ruelas on 10-22-2024 Lymphocytes/100 WBC Auto (Unsp spec) 34.8 % 19-41 [facility] BUN/creatinine ratioOrdered By: Safia Ruelas on 10-22-2024 Urea nitrogen/Creatinine [Mass ratio] 28.6 mg/mg High 10-20 [facility] Basophil percentageOrdered B y: Safia Ruelas on 10-22-2024 Basophils/100 WBC (Bld) 0.9 % 0-1 [facility] Carbon dioxide, total [Moles /volume] in Central venous bloodOrdered By: Safia Ruelas on 10-22-2024 CO2 [Moles/Vol] 23.1 mmol/L 21.0-32.0 [facility] Chloride assayOrdered By: Balbir Ruelas on 10-22-2024 Chloride [Moles/Vol] 100 mmol/L 98-108 [facility] Eosinophil percentageOrdered By: Safia Ruelas on 10-22-2024 Eosinophils/100 WBC (Bld) 3.1 % 0-5 [facility] Erythrocyte distribution wid th ratioOrdered By: Safia Ruelas on 10-22-2024 Erythrocyte distribution width (RBC) [Ratio] 13.6 % 11.6-14.6 [facility] Erythrocyte distribution wid th standard deviationOrdered By: Safia Ruelas on 10-22-2024 Erythrocyte distribution width (RBC) [Ratio] 45.9 fl High 35.1-43.9 [facility] Glomerular filtration rate ( GFR) estimation/1.73 sq m using serum, plasma, or whole bOrdered By: Safia Ruelas 10-22-2024 GFR/1.73 sq M.predicted among non-blacks MDRD (S/P/Bld) [Vol rate/Area] 60 mL/min/{1.73_m2} >60 [facility] Comment on above: mL/min/1.73m2 CKD-EP I Creatinine Equation (2020) Hematocrit Auto (Bld) [Volum e fraction]Ordered By: Safia Ruelas 10-22-2024 Hematocrit (Bld) [Volume fraction] 40.7 % 37-47 [facility] Hemoglobin measurementOrdere d By: Safia Ruelas on 10-22-2024 Hemoglobin (Bld) [Mass/Vol] 13.1 g/dL 12.0-15.0 [facility] Immature granulocytes/100 WB C Auto (Bld)Ordered By: Safia Ruelas 10-22-2024 Immature granulocytes/100 WBC (Bld) 1.400 % High 0.0-0.9 [facility] Comment on above: IG% - Immature Granu locytes (promyelocytes, myelocytes and metamyelocytes) > 1% indicates that a LEFT SHIFT is Present. MCV (mean corpuscular volume ) determinationOrdered By: Safia Ruelas 10-22-2024 MCV (RBC) [Entitic vol] 91.9 fL 81-99 [facility] Mean corpuscular hemoglobin (MCH) determinationOrdered By: Safia Ruelas on 10-22-2024 MCH (RBC) [Entitic mass] 29.6 pg 27.0-32.0 [facility] Mean corpuscular hemoglobin concentration (MCHC) determinationOrdered By: Safia Ruelas on 10-22-2024 MCHC (RBC) [Mass/Vol] 32.2 g/dL 32-36 [facility] Mean platelet volume determi nationOrdered By: Safia Ruelas on 10-22-2024 Platelet mean volume (Bld) [Entitic vol] 11.2 fL 6.2-12.0 [facility] Monocyte percentageOrdered B y: Safia Ruelas on 10-22-2024 Monocytes/100 WBC (Bld) 7.7 % 0-10 [facility] Neutrophil percentageOrdered By: Safia Ruelas on 10-22-2024 Neutrophils/100 WBC (Bld) 52.1 % 47-70 [facility] Nucleated red blood cell per centageOrdered By: Safia Ruelas on 10-22-2024 Nucleated RBC/100 WBC (Bld) [Ratio] 0 % 0-5 [facility] Platelet countOrdered By: Balbir Ruelas on 10-22-2024 Platelets (Bld) [#/Vol] 334 10*3/uL 150-450 [facility] Potassium measurement (mass/ volume)Ordered By: Safia Ruelas on 10-22-2024 Potassium (Unsp spec) [Mass/Vol] 3.7 mmol/L 3.3-5.1 [facility] RBC Auto (Bld) [#/Vol]Ordere d By: Safia Ruelas on 10-22-2024 RBC (Bld) [#/Vol] 4.43 10*6/uL 4.2-5.4 [facility] Serum creatinine measurement (mass/volume)Ordered By: Safia Ruelas on 10-22-2024 Creatinine [Mass/Vol] 0.96 mg/dL 0.70-1.20 [facility] Serum glucose measurement (m ass/volume)Ordered By: Safia Ruelas on 10-22-2024 Glucose [Mass/Vol] 106 mg/dL High 70-99 [facility] Serum or plasma calcium dayna urement (mass/volume)Ordered By: Safia Ruelas on 10-22-2024 Calcium [Mass/Vol] 9.4 mg/dL 7.6-11.0 [facility] Serum or plasma urea nitroge n measurement (mass/volume)Ordered By: Safia Ruelas on 10-22-2024 Urea nitrogen [Mass/Vol] 28 mg/dL High 4-19 [facility] Sodium levelOrdered By: Leonides jiménezradha Jessenia on 10-22-2024 Sodium [Moles/Vol] 138 mmol/L 133-145 [facility] TSH DL <= 0.005 mIU/L QnOrde red By: Safia Ruelas on 10-22-2024 TSH Qn 4.630 uIU/mL High 0.300-4.200 [facility] White blood cell (WBC) count Ordered By: Safia Ruelas on 10-22-2024 WBC (Bld) [#/Vol] 8.8 10*3/uL 4.4-11.0 [facility] Absolute lymphocyte countOrd ered By: Safia Ruelas on 10-15-2024 Lymphocytes Auto (Unsp spec) [#/Vol] 3.04 10*3/uL 0.83-4.51 [facility] Absolute neutrophil countOrd ered By: Safia Ruelas on 10-15-2024 Neutrophils (Bld) [#/Vol] 4.3 10*3/uL 2.0-7.7 [facility] Anion gap in Serum or Plasma Ordered By: Safia Ruelas on 10-15-2024 Anion gap [Moles/Vol] 12 mmol/L 5-15 [facility] Automated lymphocyte count a s percentage of total leukocytesOrdered By: Safia Ruelas on 10-15-2024 Lymphocytes/100 WBC Auto (Unsp spec) 36.7 % 19-41 [facility] BUN/creatinine ratioOrdered By: Safia Ruelas on 10-15-2024 Urea nitrogen/Creatinine [Mass ratio] 36.5 mg/mg High 10-20 [facility] Basophil percentageOrdered B y: Safia Ruelas on 10-15-2024 Basophils/100 WBC (Bld) 0.7 % 0-1 [facility] Carbon dioxide, total [Moles /volume] in Central venous bloodOrdered By: Safia Ruelas on 10-15-2024 CO2 [Moles/Vol] 25.2 mmol/L 21.0-32.0 [facility] Chloride assayOrdered By: Balbir Ruelas on 10-15-2024 Chloride [Moles/Vol] 100 mmol/L 98-108 [facility] Eosinophil percentageOrdered By: Safia Ruelas on 10-15-2024 Eosinophils/100 WBC (Bld) 2.4 % 0-5 [facility] Erythrocyte distribution wid th ratioOrdered By: Safia Ruelas on 10-15-2024 Erythrocyte distribution width (RBC) [Ratio] 13.5 % 11.6-14.6 [facility] Erythrocyte distribution wid th standard deviationOrdered By: sherry Ruelas on 10-15-2024 Erythrocyte distribution width (RBC) [Ratio] 45.2 fl High 35.1-43.9 [facility] Glomerular filtration rate ( GFR) estimation/1.73 sq m using serum, plasma, or whole bOrdered By: Safia Ruelas on 10-15-2024 GFR/1.73 sq M.predicted among non-blacks MDRD (S/P/Bld) [Vol rate/Area] 71 mL/min/{1.73_m2} >60 [facility] Comment on above: mL/min/1.73m2 CKD-EP I Creatinine Equation (2020) Hematocrit Auto (Bld) [Volum e fraction]Ordered By: Safia Ruelas on 10-15-2024 Hematocrit (Bld) [Volume fraction] 40.3 % 37-47 [facility] Hemoglobin measurementOrdere d By: Safia Ruelas on 10-15-2024 Hemoglobin (Bld) [Mass/Vol] 13.3 g/dL 12.0-15.0 [facility] Immature granulocytes/100 WB C Auto (Bld)Ordered By: Safia Ruelas on 10-15-2024 Immature granulocytes/100 WBC (Bld) 0.400 % 0.0-0.9 [facility] Comment on above: IG% - Immature Granu locytes (promyelocytes, myelocytes and metamyelocytes) > 1% indicates that a LEFT SHIFT is Present. MCV (mean corpuscular volume ) determinationOrdered By: Safia Ruelas on 10-15-2024 MCV (RBC) [Entitic vol] 91.0 fL 81-99 [facility] Mean corpuscular hemoglobin (MCH) determinationOrdered By: Safia Ruelas on 10-15-2024 MCH (RBC) [Entitic mass] 30.0 pg 27.0-32.0 [facility] Mean corpuscular hemoglobin concentration (MCHC) determinationOrdered By: Safia Ruelas on 10-15-2024 MCHC (RBC) [Mass/Vol] 33.0 g/dL 32-36 [facility] Mean platelet volume determi nationOrdered By: Safia Ruelas on 10-15-2024 Platelet mean volume (Bld) [Entitic vol] 11.9 fL 6.2-12.0 [facility] Monocyte percentageOrdered B y: Safia Ruelas on 10-15-2024 Monocytes/100 WBC (Bld) 8.2 % 0-10 [facility] Neutrophil percentageOrdered By: Safia Ruelas on 10-15-2024 Neutrophils/100 WBC (Bld) 51.6 % 47-70 [facility] Nucleated red blood cell per centageOrdered By: Safia Ruelas on 10-15-2024 Nucleated RBC/100 WBC (Bld) [Ratio] 0 % 0-5 [facility] Platelet countOrdered By: Balbir Ruelas on 10-15-2024 Platelets (Bld) [#/Vol] 221 10*3/uL 150-450 [facility] Potassium measurement (mass/ volume)Ordered By: Safia Ruelas on 10-15-2024 Potassium (Unsp spec) [Mass/Vol] 3.8 mmol/L 3.3-5.1 [facility] RBC Auto (Bld) [#/Vol]Ordere d By: Safia Ruelas on 10-15-2024 RBC (Bld) [#/Vol] 4.43 10*6/uL 4.2-5.4 [facility] Serum creatinine measurement (mass/volume)Ordered By: Safia Ruelas on 10-15-2024 Creatinine [Mass/Vol] 0.83 mg/dL 0.70-1.20 [facility] Serum glucose measurement (m ass/volume)Ordered By: Safia Ruelas on 10-15-2024 Glucose [Mass/Vol] 68 mg/dL Low 70-99 [facility] Serum or plasma calcium dayna urement (mass/volume)Ordered By: Safia Ruelas on 10-15-2024 Calcium [Mass/Vol] 9.3 mg/dL 7.6-11.0 [facility] Serum or plasma urea nitroge n measurement (mass/volume)Ordered By: Safia Ruelas on 10-15-2024 Urea nitrogen [Mass/Vol] 30 mg/dL High 4-19 [facility] Sodium levelOrdered By: Leonides Ruelas on 10-15-2024 Sodium [Moles/Vol] 138 mmol/L 133-145 [facility] White blood cell (WBC) count Ordered By: Safia Ruelas on 10-15-2024 WBC (Bld) [#/Vol] 8.3 10*3/uL 4.4-11.0 [facility] Absolute lymphocyte countOrd ered By: Safia Ruelas on 10-08-2024 Lymphocytes Auto (Unsp spec) [#/Vol] 2.52 10*3/uL 0.83-4.51 [facility] Absolute neutrophil countOrd ered By: Safia Ruelas on 10-08-2024 Neutrophils (Bld) [#/Vol] 4.9 10*3/uL 2.0-7.7 [facility] Anion gap in Serum or Plasma Ordered By: Safia Ruelas on 10-08-2024 Anion gap [Moles/Vol] 14 mmol/L 5-15 [facility] Automated lymphocyte count a s percentage of total leukocytesOrdered By: Safia Ruelas on 10-08-2024 Lymphocytes/100 WBC Auto (Unsp spec) 29.4 % 19-41 [facility] BUN/creatinine ratioOrdered By: Leonidesblack can[place] cityskye Ruelas on 10-08-2024 Urea nitrogen/Creatinine [Mass ratio] 34.1 mg/mg High 10-20 [facility] Basophil percentageOrdered B y: Balbirrandallskye Ruelas on 10-08-2024 Basophils/100 WBC (Bld) 0.7 % 0-1 [facility] Carbon dioxide, total [Moles /volume] in Central venous bloodOrdered By: Safia Ruelas on 10-08-2024 CO2 [Moles/Vol] 24.0 mmol/L 21.0-32.0 [facility] Chloride assayOrdered By: Balbir ejan mariejosé antonio Ruelas on 10-08-2024 Chloride [Moles/Vol] 100 mmol/L 98-108 [facility] Eosinophil percentageOrdered By: [facility] on 10-08-2024 Eosinophils/100 WBC (Bld) 2.6 % 0-5 [facility] Erythrocyte distribution wid th ratioOrdered By: Safia Ruelas on 10-08-2024 Erythrocyte distribution width (RBC) [Ratio] 13.2 % 11.6-14.6 [facility] Erythrocyte distribution wid th standard deviationOrdered By: Leonidesblack [place] city[place]ye Ruelas on 10-08-2024 Erythrocyte distribution width (RBC) [Ratio] 45.3 fl High 35.1-43.9 [facility] Glomerular filtration rate ( GFR) estimation/1.73 sq m using serum, plasma, or whole bOrdered By: Safia Ruelas on 10-08-2024 GFR/1.73 sq M.predicted among non-blacks MDRD (S/P/Bld) [Vol rate/Area] 65 mL/min/{1.73_m2} >60 [facility] Comment on above: mL/min/1.73m2 CKD-EP I Creatinine Equation (2021) Hematocrit Auto (Bld) [Volum e fraction]Ordered By: Safia Ruelas on 10-08-2024 Hematocrit (Bld) [Volume fraction] 41.7 % 37-47 [facility] Hemoglobin measurementOrdere d By: Safia Ruelas on 10-08-2024 Hemoglobin (Bld) [Mass/Vol] 13.3 g/dL 12.0-15.0 [facility] Immature granulocytes/100 WB C Auto (Bld)Ordered By: Safia Ruelas on 10-08-2024 Immature granulocytes/100 WBC (Bld) 0.400 % 0.0-0.9 [facility] Comment on above: IG% - Immature Granu locytes (promyelocytes, myelocytes and metamyelocytes) > 1% indicates that a LEFT SHIFT is Present. MCV (mean corpuscular volume ) determinationOrdered By: Safia Ruelas on 10-08-2024 MCV (RBC) [Entitic vol] 92.7 fL 81-99 [facility] Mean corpuscular hemoglobin (MCH) determinationOrdered By: jean marieblack [place] city[place] Ruelas on 10-08-2024 MCH (RBC) [Entitic mass] 29.6 pg 27.0-32.0 [facility] Mean corpuscular hemoglobin concentration (MCHC) determinationOrdered By: Safia Ruelas on 10-08-2024 MCHC (RBC) [Mass/Vol] 31.9 g/dL Low 32-36 [facility] Mean platelet volume determi nationOrdered By: Safia Ruelas on 10-08-2024 Platelet mean volume (Bld) [Entitic vol] 11.0 fL 6.2-12.0 [facility] Monocyte percentageOrdered B y: Safia Ruelas on 10-08-2024 Monocytes/100 WBC (Bld) 9.2 % 0-10 [facility] Neutrophil percentageOrdered By: Safia Ruelas on 10-08-2024 Neutrophils/100 WBC (Bld) 57.7 % 47-70 [facility] Nucleated red blood cell per centageOrdered By: sherry Ruelas on 10-08-2024 Nucleated RBC/100 WBC (Bld) [Ratio] 0 % 0-5 [facility] Platelet countOrdered By: Balbir randallskye Griderbonimelanie on 10-08-2024 Platelets (Bld) [#/Vol] 323 10*3/uL 150-450 [facility] Potassium measurement (mass/ volume)Ordered By: Safia Griderbonimelanie on 10-08-2024 Potassium (Unsp spec) [Mass/Vol] 4.1 mmol/L 3.3-5.1 [facility] RBC Auto (Bld) [#/Vol]Ordere d By: Leonidesdesireeskye Ruelas on 10-08-2024 RBC (Bld) [#/Vol] 4.50 10*6/uL 4.2-5.4 [facility] Serum creatinine measurement (mass/volume)Ordered By: Safia Ruelas on 10-08-2024 Creatinine [Mass/Vol] 0.90 mg/dL 0.70-1.20 [facility] Serum glucose measurement (m ass/volume)Ordered By: Safia Ruelas on 10-08-2024 Glucose [Mass/Vol] 82 mg/dL 70-99 [facility] Serum or plasma calcium dayna urement (mass/volume)Ordered By: Balbirsherry Griderbonimelanie on 10-08-2024 Calcium [Mass/Vol] 9.6 mg/dL 7.6-11.0 [facility] Serum or plasma urea nitroge n measurement (mass/volume)Ordered By: Safia Ruelas on 10-08-2024 Urea nitrogen [Mass/Vol] 31 mg/dL High 4-19 [facility] Sodium levelOrdered By: Leonides josé antonio Jessenia on 10-08-2024 Sodium [Moles/Vol] 138 mmol/L 133-145 [facility] White blood cell (WBC) count Ordered By: Safia Ruelas on 10-08-2024 WBC (Bld) [#/Vol] 8.6 10*3/uL 4.4-11.0 [facility] 12 Lead EKG performed by [facility] on 10-02-2024 12 Lead EKG performed by [address] [address] [place] [address] 12 Lead EKG performed by [facility] 10/02/24920 MR#: [id number] Acct: [id number] Name: LINDSAY ACUNA Rep #: [id number] : [id number] From: Mj Benavides MD Attending Dr: Dr. Mj Benavides MD Status: DEP A MB Ordering Dr: Mj Benavides MD Date: 10/02/24 Location: [facility] Sex: F C Admitted: BMS/12 Lead EKG performed by [facility] [place] ECG Report Interpretation ---Atrial fibrillation -irregular conduction -Old anterior infarct. ABNORMAL Electronically signed on 10/02/2024 at 16:06 by Mj Benavides [employer] Version 8610 10/02/24 1608 Date Mj Benavides MD CC: Dr. Kameron Caruso MD Date Dictated: 10/02/24920 Date Transcribed: 10/02/24920 Fur Pointer: [place] Signed Normal [facility] Cardiology Visit Reporton Cardiology Visit Report [facility] [address] [place] [address] OFFICE VISIT Date of Service: 10/02/24 MR#: [id number] Acct: [id number] Name: LINDSAY ACUNA Rep #: [id number] : 1945 Provider: Dr. Mj Benavides MD Age/Sex: 78/F Location: [facility] Status: Signed HPI HPI History of Present [...] now she is currently domiciled in a fdc. 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 Normal [facility] Absolute lymphocyte countOrd ered By: Safia Ruelas on 10-01-2024 Lymphocytes Auto (Unsp spec) [#/Vol] 2.45 10*3/uL 0.83-4.51 [facility] Absolute neutrophil countOrd ered By: Safia Griderbonimelanie on 10-01-2024 Neutrophils (Bld) [#/Vol] 6.5 10*3/uL 2.0-7.7 [facility] Anion gap in Serum or Plasma Ordered By: Safia uRelas on 10-01-2024 Anion gap [Moles/Vol] 12 mmol/L 5-15 [facility] Automated lymphocyte count a s percentage of total leukocytesOrdered By: Safia Ruelas on 10-01-2024 Lymphocytes/100 WBC Auto (Unsp spec) 23.1 % 19-41 [facility] BUN/creatinine ratioOrdered By: Safia Ruelas on 10-01-2024 Urea nitrogen/Creatinine [Mass ratio] 24.9 mg/mg High 10- [facility] Basophil percentageOrdered B y: Safia Ruelas on 10-01-2024 Basophils/100 WBC (Bld) 0.5 % 0-1 [facility] Carbon dioxide, total [Moles /volume] in Central venous bloodOrdered By: Safia Ruelas on 10-01-2024 CO2 [Moles/Vol] 24.4 mmol/L 21.0-32.0 [facility] Chloride assayOrdered By: Balbir Ruelas on 10-01-2024 Chloride [Moles/Vol] 99 mmol/L 98-108 [facility] Eosinophil percentageOrdered By: Safia Ruelas on 10-01-2024 Eosinophils/100 WBC (Bld) 2.0 % 0-5 [facility] Erythrocyte distribution wid th ratioOrdered By: Safia Ruelas on 10-01-2024 Erythrocyte distribution width (RBC) [Ratio] 13.5 % 11.6-14.6 [facility] Erythrocyte distribution wid th standard deviationOrdered By: Safia Ruelas on 10-01-2024 Erythrocyte distribution width (RBC) [Ratio] 46.2 fl High 35.1-43.9 [facility] Glomerular filtration rate ( GFR) estimation/1.73 sq m using serum, plasma, or whole bOrdered By: Safia Ruelas on 10-01-2024 GFR/1.73 sq M.predicted among non-blacks MDRD (S/P/Bld) [Vol rate/Area] 63 mL/min/{1.73_m2} >60 [facility] Comment on above: mL/min/1.73m2 CKD-EP I Creatinine Equation (2020) Hematocrit Auto (Bld) [Volum e fraction]Ordered By: Safia Ruelas on 10-01-2024 Hematocrit (Bld) [Volume fraction] 38.7 % 37-47 [facility] Hemoglobin measurementOrdere d By: Safia Ruelas on 10-01-2024 Hemoglobin (Bld) [Mass/Vol] 12.5 g/dL 12.0-15.0 [facility] Immature granulocytes/100 WB C Auto (Bld)Ordered By: sherry Ruelas on 10-01-2024 Immature granulocytes/100 WBC (Bld) 0.800 % 0.0-0.9 [facility] Comment on above: IG% - Immature Granu locytes (promyelocytes, myelocytes and metamyelocytes) > 1% indicates that a LEFT SHIFT is Present. MCV (mean corpuscular volume ) determinationOrdered By: Safia Ruelas on 10-01-2024 MCV (RBC) [Entitic vol] 93.3 fL 81-99 [facility] Mean corpuscular hemoglobin (MCH) determinationOrdered By: Safia Ruelas on 10-01-2024 MCH (RBC) [Entitic mass] 30.1 pg 27.0-32.0 [facility] Mean corpuscular hemoglobin concentration (MCHC) determinationOrdered By: Safia Ruelas on 10-01-2024 MCHC (RBC) [Mass/Vol] 32.3 g/dL 32-36 [facility] Mean platelet volume determi nationOrdered By: Safia Ruelas on 10-01-2024 Platelet mean volume (Bld) [Entitic vol] 11.7 fL 6.2-12.0 [facility] Monocyte percentageOrdered B y: Safia Ruelas on 10-01-2024 Monocytes/100 WBC (Bld) 12.7 % High 0-10 [facility] Neutrophil percentageOrdered By: Safia Cheoquyen on 10-01-2024 Neutrophils/100 WBC (Bld) 60.9 % 47-70 [facility] Nucleated red blood cell per centageOrdered By: Safia Cheobonimelanie on 10-01-2024 Nucleated RBC/100 WBC (Bld) [Ratio] 0 % 0-5 [facility] Platelet countOrdered By: Balbir sherry Cheobonimelanie on 10-01-2024 Platelets (Bld) [#/Vol] 371 10*3/uL 150-450 [facility] Potassium measurement (mass/ volume)Ordered By: Balbirjean mariejosé antonio Cheoquyen on 10-01-2024 Potassium (Unsp spec) [Mass/Vol] 4.2 mmol/L 3.3-5.1 [facility] RBC Auto (Bld) [#/Vol]Ordere d By: Safia Cheoquyen on 10-01-2024 RBC (Bld) [#/Vol] 4.15 10*6/uL Low 4.2-5.4 [facility] Serum creatinine measurement (mass/volume)Ordered By: Balbirjean mariejosé antonio Cheoquyen on 10-01-2024 Creatinine [Mass/Vol] 0.93 mg/dL 0.70-1.20 [facility] Serum glucose measurement (m ass/volume)Ordered By: Safia Griderbonimelanie on 10-01-2024 Glucose [Mass/Vol] 93 mg/dL 70-99 [facility] Serum or plasma calcium dayna urement (mass/volume)Ordered By: Leonidesjosé antonio Cheobonimelanie on 10-01-2024 Calcium [Mass/Vol] 9.5 mg/dL 7.6-11.0 [facility] Serum or plasma urea nitroge n measurement (mass/volume)Ordered By: Balbirsherry Griderbonimelanie on 10-01-2024 Urea nitrogen [Mass/Vol] 23 mg/dL High 4-19 [facility] Sodium levelOrdered By: Balbirjean marie josé antonio Jessenia on 10-01-2024 Sodium [Moles/Vol] 135 mmol/L 133-145 [facility] White blood cell (WBC) count Ordered By: Safia Ruelas on 10-01-2024 WBC (Bld) [#/Vol] 10.6 10*3/uL 4.4-11.0 [facility] Clostridium difficile detect ion by polymerase chain reactionOrdered By: Safia Ruelas on 09-29-2024 C. difficile DNA CHUCKY+probe Ql (Unsp spec) [facility] Absolute lymphocyte countOrd ered By: Safia Ruelas on 09-24-2024 Lymphocytes Auto (Unsp spec) [#/Vol] 2.72 10*3/uL 0.83-4.51 [facility] Absolute neutrophil countOrd ered By: Safia Ruelas on 09-24-2024 Neutrophils (Bld) [#/Vol] 6.3 10*3/uL 2.0-7.7 [facility] Anion gap in Serum or Plasma Ordered By: Safia Ruelas on 09-24-2024 Anion gap [Moles/Vol] 12 mmol/L 5-15 [facility] Automated lymphocyte count a s percentage of total leukocytesOrdered By: Safia Ruelas on 09-24-2024 Lymphocytes/100 WBC Auto (Unsp spec) 26.3 % 19-41 [facility] BUN/creatinine ratioOrdered By: Safia Ruelas on 09-24-2024 Urea nitrogen/Creatinine [Mass ratio] 36.4 mg/mg High 10-20 [facility] Basophil percentageOrdered B y: Safia Ruelas on 09-24-2024 Basophils/100 WBC (Bld) 0.7 % 0-1 [facility] Carbon dioxide, total [Moles /volume] in Central venous bloodOrdered By: Safia Ruelas on 09-24-2024 CO2 [Moles/Vol] 24.1 mmol/L 21.0-32.0 [facility] Chloride assayOrdered By: Balbir Ruelas on 09-24-2024 Chloride [Moles/Vol] 100 mmol/L 98-108 [facility] Eosinophil percentageOrdered By: Safia Ruelas on 09-24-2024 Eosinophils/100 WBC (Bld) 2.7 % 0-5 [facility] Erythrocyte distribution wid th ratioOrdered By: Safia Ruelas on 09-24-2024 Erythrocyte distribution width (RBC) [Ratio] 13.6 % 11.6-14.6 [facility] Erythrocyte distribution wid th standard deviationOrdered By: Safia Ruelas on 09-24-2024 Erythrocyte distribution width (RBC) [Ratio] 47.1 fl High 35.1-43.9 [facility] Glomerular filtration rate ( GFR) estimation/1.73 sq m using serum, plasma, or whole bOrdered By: Leonidesblack canyon cityskye Ruelas on 09-24-2024 GFR/1.73 sq M.predicted among non-blacks MDRD (S/P/Bld) [Vol rate/Area] 62 mL/min/{1.73_m2} >60 [facility] Comment on above: mL/min/1.73m2 CKD-EP I Creatinine Equation (2020) Hematocrit Auto (Bld) [Volum e fraction]Ordered By: Safia Ruelas on 09-24-2024 Hematocrit (Bld) [Volume fraction] 41.2 % 37-47 [facility] Hemoglobin measurementOrdere d By: Safia Ruelas on 09-24-2024 Hemoglobin (Bld) [Mass/Vol] 13.0 g/dL 12.0-15.0 [facility] Immature granulocytes/100 WB C Auto (Bld)Ordered By: Safia Ruelas 09-24-2024 Immature granulocytes/100 WBC (Bld) 1.000 % High 0.0-0.9 [facility] Comment on above: IG% - Immature Granu locytes (promyelocytes, myelocytes and metamyelocytes) > 1% indicates that a LEFT SHIFT is Present. MCV (mean corpuscular volume ) determinationOrdered By: Safia Ruelas on 09-24-2024 MCV (RBC) [Entitic vol] 94.3 fL 81-99 [facility] Mean corpuscular hemoglobin (MCH) determinationOrdered By: Safia Ruelas 09-24-2024 MCH (RBC) [Entitic mass] 29.7 pg 27.0-32.0 [facility] Mean corpuscular hemoglobin concentration (MCHC) determinationOrdered By: Safia Ruelas on 09-24-2024 MCHC (RBC) [Mass/Vol] 31.6 g/dL Low 32-36 [facility] Mean platelet volume determi nationOrdered By: Safia Ruelas on 09-24-2024 Platelet mean volume (Bld) [Entitic vol] 11.3 fL 6.2-12.0 [facility] Monocyte percentageOrdered B y: Safia Ruelas on 09-24-2024 Monocytes/100 WBC (Bld) 8.9 % 0-10 [facility] Neutrophil percentageOrdered By: Safia Ruelas on 09-24-2024 Neutrophils/100 WBC (Bld) 60.4 % 47-70 [facility] Nucleated red blood cell per centageOrdered By: Safia Ruelas on 09-24-2024 Nucleated RBC/100 WBC (Bld) [Ratio] 0 % 0-5 [facility] Platelet countOrdered By: Balbir Ruelas on 09-24-2024 Platelets (Bld) [#/Vol] 441 10*3/uL 150-450 [facility] Potassium measurement (mass/ volume)Ordered By: Safia Ruelas on 09-24-2024 Potassium (Unsp spec) [Mass/Vol] 4.3 mmol/L 3.3-5.1 [facility] RBC Auto (Bld) [#/Vol]Ordere d By: Safia Ruelas on 09-24-2024 RBC (Bld) [#/Vol] 4.37 10*6/uL 4.2-5.4 [facility] Serum creatinine measurement (mass/volume)Ordered By: Safia Ruelas on 09-24-2024 Creatinine [Mass/Vol] 0.93 mg/dL 0.70-1.20 [facility] Serum glucose measurement (m ass/volume)Ordered By: Safia Ruelas on 09-24-2024 Glucose [Mass/Vol] 48 mg/dL Low 70-99 [facility] Serum or plasma calcium dayna urement (mass/volume)Ordered By: Safia Ruelas on 09-24-2024 Calcium [Mass/Vol] 9.5 mg/dL 7.6-11.0 [facility] Serum or plasma urea nitroge n measurement (mass/volume)Ordered By: Safia Ruelas on 09-24-2024 Urea nitrogen [Mass/Vol] 34 mg/dL High 4-19 [facility] Sodium levelOrdered By: Leonides josé antonio Jessenia on 09-24-2024 Sodium [Moles/Vol] 136 mmol/L 133-145 [facility] White blood cell (WBC) count Ordered By: Safai Ruelas on 09-24-2024 WBC (Bld) [#/Vol] 10.4 10*3/uL 4.4-11.0 [facility] Absolute lymphocyte countOrd ered By: Safia Ruelas on 09-17-2024 Lymphocytes Auto (Unsp spec) [#/Vol] 2.52 10*3/uL 0.83-4.51 [facility] Absolute neutrophil countOrd ered By: Safia Ruelas on 09-17-2024 Neutrophils (Bld) [#/Vol] 5.8 10*3/uL 2.0-7.7 [facility] Anion gap in Serum or Plasma Ordered By: Safia Ruelas on 09-17-2024 Anion gap [Moles/Vol] 12 mmol/L 5-15 [facility] Automated lymphocyte count a s percentage of total leukocytesOrdered By: Safia Ruelas on 09-17-2024 Lymphocytes/100 WBC Auto (Unsp spec) 26.3 % 19-41 [facility] BUN/creatinine ratioOrdered By: Safia Ruelas on 09-17-2024 Urea nitrogen/Creatinine [Mass ratio] 45.9 mg/mg High 10-20 [facility] Basophil percentageOrdered B y: Safia Ruelas on 09-17-2024 Basophils/100 WBC (Bld) 0.6 % 0-1 [facility] Calculated very low density lipoprotein (VLDL) cholesterol measurementOrdered By: Safia Ruelas on 09-17-2024 Calculated very low density lipoprotein (VLDL) cholesterol measurement 22 mg/dL 5-40 [facility] Carbon dioxide, total [Moles /volume] in Central venous bloodOrdered By: Safia Ruelas on 09-17-2024 CO2 [Moles/Vol] 24.5 mmol/L 21.0-32.0 [facility] Chloride assayOrdered By: Balbir Ruelas on 09-17-2024 Chloride [Moles/Vol] 98 mmol/L 98-108 [facility] Eosinophil percentageOrdered By: Safia Ruelas on 09-17-2024 Eosinophils/100 WBC (Bld) 3.2 % 0-5 [facility] Erythrocyte distribution wid th ratioOrdered By: sherry Ruelas on 09-17-2024 Erythrocyte distribution width (RBC) [Ratio] 13.4 % 11.6-14.6 [facility] Erythrocyte distribution wid th standard deviationOrdered By: sherry Ruelas on 09-17-2024 Erythrocyte distribution width (RBC) [Ratio] 45.4 fl High 35.1-43.9 [facility] Glomerular filtration rate ( GFR) estimation/1.73 sq m using serum, plasma, or whole bOrdered By: Safia Ruelas on 09-17-2024 GFR/1.73 sq M.predicted among non-blacks MDRD (S/P/Bld) [Vol rate/Area] 69 mL/min/{1.73_m2} >60 [facility] Comment on above: mL/min/1.73m2 CKD-EP I Creatinine Equation (2020) Hematocrit Auto (Bld) [Volum e fraction]Ordered By: Safia Ruelas on 09-17-2024 Hematocrit (Bld) [Volume fraction] 38.8 % 37-47 [facility] Hemoglobin measurementOrdere d By: Safia Ruelas on 09-17-2024 Hemoglobin (Bld) [Mass/Vol] 12.6 g/dL 12.0-15.0 [facility] Immature granulocytes/100 WB C Auto (Bld)Ordered By: Safia Ruelas on 09-17-2024 Immature granulocytes/100 WBC (Bld) 0.700 % 0.0-0.9 [facility] Comment on above: IG% - Immature Granu locytes (promyelocytes, myelocytes and metamyelocytes) > 1% indicates that a LEFT SHIFT is Present. LDL calc ser/plasOrdered By: Safia Ruelas on 09-17-2024 Cholesterol in LDL [Mass/Vol] 120 mg/dL [facility] Comment on above: Puybawxxaq=800-631 m g/dL & Higher Ozpy=237 mg/dL or greater MCV (mean corpuscular volume ) determinationOrdered By: Safia Ruelas on 09-17-2024 MCV (RBC) [Entitic vol] 91.7 fL 81-99 [facility] Mean corpuscular hemoglobin (MCH) determinationOrdered By: Safia Ruelas on 09-17-2024 MCH (RBC) [Entitic mass] 29.8 pg 27.0-32.0 [facility] Mean corpuscular hemoglobin concentration (MCHC) determinationOrdered By: Safia Ruelas on 09-17-2024 MCHC (RBC) [Mass/Vol] 32.5 g/dL 32-36 [facility] Mean platelet volume determi nationOrdered By: Safia Ruelas on 09-17-2024 Platelet mean volume (Bld) [Entitic vol] 11.4 fL 6.2-12.0 [facility] Monocyte percentageOrdered B y: Safia Ruelas on 09-17-2024 Monocytes/100 WBC (Bld) 8.5 % 0-10 [facility] Neutrophil percentageOrdered By: Safia Ruelas on 09-17-2024 Neutrophils/100 WBC (Bld) 60.7 % 47-70 [facility] Nucleated red blood cell per centageOrdered By: Safia Ruelas on 09-17-2024 Nucleated RBC/100 WBC (Bld) [Ratio] 0 % 0-5 [facility] Platelet countOrdered By: Balbir Ruelas on 09-17-2024 Platelets (Bld) [#/Vol] 311 10*3/uL 150-450 [facility] Potassium measurement (mass/ volume)Ordered By: Safia Ruelas on 09-17-2024 Potassium (Unsp spec) [Mass/Vol] 4.1 mmol/L 3.3-5.1 [facility] RBC Auto (Bld) [#/Vol]Ordere d By: Safia Ruelas on 09-17-2024 RBC (Bld) [#/Vol] 4.23 10*6/uL 4.2-5.4 [facility] Screening total cholesterol/ high density lipoprotein (HDL) cholesterol ratioOrdered By: Safia Ruelas on 09-17-2024 Cholesterol.total/Alta sterol in HDL [Mass ratio] 5.38 {ratio} [facility] Serum creatinine measurement (mass/volume)Ordered By: Safia Ruelas on 09-17-2024 Creatinine [Mass/Vol] 0.86 mg/dL 0.70-1.20 [facility] Serum glucose measurement (m ass/volume)Ordered By: Safia Ruelas on 09-17-2024 Glucose [Mass/Vol] 216 mg/dL High 70-99 [facility] Serum or plasma calcium dayna urement (mass/volume)Ordered By: Safia Ruelas on 09-17-2024 Calcium [Mass/Vol] 9.4 mg/dL 7.6-11.0 [facility] Serum or plasma cholesterol in HDL measurement (mass/volume)Ordered By: Safia Ruelas on 09-17-2024 Cholesterol in HDL [Mass/Vol] 33 mg/dL Low >40 [facility] Comment on above: National Cholesterol Education Program (NCEP) guidelines:<40 mg/dL: Low HDL-cholesterol (major risk factor for CHD)>= 60 mg/dL: High HDL-cholesterol (negative risk factor for CHD)HDL-cholesterol is affected by a number of factors, e.g. smoking, exercise, hormones, sex and age. Serum or plasma cholesterol measurement (mass/volume)Ordered By: Safia Ruelas on 09-17-2024 Cholesterol [Mass/Vol] 175 mg/dL <201 [facility] Comment on above: Cholesterol level, D esirable <200 mg/dLBorderline high cholesterol 200-239 mg/dLHigh cholesterol >=240 mg/dLRecommendations of the NCEP Adult Treatment Panel for the following risk-cutoff thresholds for the [place] population. Serum or plasma urea nitroge n measurement (mass/volume)Ordered By: Safia Ruelas on 09-17-2024 Urea nitrogen [Mass/Vol] 39 mg/dL High 4-19 [facility] Sodium levelOrdered By: Leonides josé antonio Jessenia on 09-17-2024 Sodium [Moles/Vol] 134 mmol/L 133-145 [facility] TSH DL <= 0.005 mIU/L QnOrde red By: Safia Ruelas on 09-17-2024 TSH Qn 3.500 uIU/mL 0.300-4.200 [facility] Triglycerides measurementOrd ered By: Safia Ruelas on 09-17-2024 Triglyceride [Mass/Vol] 111 mg/dL <199 [facility] Comment on above: The drugs N-Acetylcy steine and Metamizole may falsely depress this assay. Normal range: <150 mg/dLBorderline High: 150-199 mg/dLHigh: 200-499 mg/dLVery High: >500 mg/dL White blood cell (WBC) count Ordered By: Safia Ruelas on 09-17-2024 WBC (Bld) [#/Vol] 9.6 10*3/uL 4.4-11.0 [facility] Absolute lymphocyte countOrd ered By: Safia Ruelas on 09-10-2024 Lymphocytes Auto (Unsp spec) [#/Vol] 2.11 10*3/uL 0.83-4.51 [facility] Absolute neutrophil countOrd ered By: Safia Ruelas on 09-10-2024 Neutrophils (Bld) [#/Vol] 8.1 10*3/uL High 2.0-7.7 [facility] Anion gap in Serum or Plasma Ordered By: Safia Ruelas on 09-10-2024 Anion gap [Moles/Vol] 13 mmol/L 5-15 [facility] Automated lymphocyte count a s percentage of total leukocytesOrdered By: Safia Ruelas on 09-10-2024 Lymphocytes/100 WBC Auto (Unsp spec) 17.9 % Low 19-41 [facility] BUN/creatinine ratioOrdered By: Safia Ruelas on 09-10-2024 Urea nitrogen/Creatinine [Mass ratio] 29.1 mg/mg High 10-20 [facility] Basophil percentageOrdered B y: Safia Cheoquyen on 09-10-2024 Basophils/100 WBC (Bld) 0.3 % 0-1 [facility] Bilirubin, totalOrdered By: Balbirjean mariejosé antonio Cheobonimelanie on 09-10-2024 Bilirubin [Mass/Vol] 0.55 mg/dL 0.00-1.30 [facility] Carbon dioxide, total [Moles /volume] in Central venous bloodOrdered By: Balbirsherry Griderbonimelanie on 09-10-2024 CO2 [Moles/Vol] 23.6 mmol/L 21.0-32.0 [facility] Chloride assayOrdered By: Balbir randallskye Griderbonimelanie on 09-10-2024 Chloride [Moles/Vol] 97 mmol/L Low 98-108 [facility] Eosinophil percentageOrdered By: Safia Cheoquyen on 09-10-2024 Eosinophils/100 WBC (Bld) 0.5 % 0-5 [facility] Erythrocyte distribution wid th ratioOrdered By: jean mariejosé antonio Cheobonimelanie on 09-10-2024 Erythrocyte distribution width (RBC) [Ratio] 13.4 % 11.6-14.6 [facility] Erythrocyte distribution wid th standard deviationOrdered By: jean marieblack [place] city[place]ye Griderbonimelanie on 09-10-2024 Erythrocyte distribution width (RBC) [Ratio] 45.2 fl High 35.1-43.9 [facility] Glomerular filtration rate ( GFR) estimation/1.73 sq m using serum, plasma, or whole bOrdered By: Balbirjean mariedesireeskye Griderbonimelanie on 09-10-2024 GFR/1.73 sq M.predicted among non-blacks MDRD (S/P/Bld) [Vol rate/Area] 59 mL/min/{1.73_m2} Low >60 [facility] Comment on above: mL/min/1.73m2 CKD-EP I Creatinine Equation (2020) Hematocrit Auto (Bld) [Volum e fraction]Ordered By: Safia Ruelas on 09-10-2024 Hematocrit (Bld) [Volume fraction] 41.8 % 37-47 [facility] Hemoglobin measurementOrdere d By: Safia Ruelas on 09-10-2024 Hemoglobin (Bld) [Mass/Vol] 13.4 g/dL 12.0-15.0 [facility] Immature granulocytes/100 WB C Auto (Bld)Ordered By: Safia Ruelas on 09-10-2024 Immature granulocytes/100 WBC (Bld) 0.800 % 0.0-0.9 [facility] Comment on above: IG% - Immature Granu locytes (promyelocytes, myelocytes and metamyelocytes) > 1% indicates that a LEFT SHIFT is Present. Laboratory - Chemistry and C hemistry - challengeOrdered By: Safia Ruelas on 09-10-2024 AST [Catalytic activity/Vol] 21 U/L <32 [facility] MCV (mean corpuscular volume ) determinationOrdered By: Safia Ruelas on 09-10-2024 MCV (RBC) [Entitic vol] 92.5 fL 81-99 [facility] Mean corpuscular hemoglobin (MCH) determinationOrdered By: jean marieblack [place] city[place]ye Ruelas on 09-10-2024 MCH (RBC) [Entitic mass] 29.6 pg 27.0-32.0 [facility] Mean corpuscular hemoglobin concentration (MCHC) determinationOrdered By: Safia Ruelas on 09-10-2024 MCHC (RBC) [Mass/Vol] 32.1 g/dL 32-36 [facility] Mean platelet volume determi nationOrdered By: Safia Ruelas on 09-10-2024 Platelet mean volume (Bld) [Entitic vol] 12.6 fL High 6.2-12.0 [facility] Monocyte percentageOrdered B y: Safia Ruelas on 09-10-2024 Monocytes/100 WBC (Bld) 12.3 % High 0-10 [facility] Neutrophil percentageOrdered By: Safia Ruelas on 09-10-2024 Neutrophils/100 WBC (Bld) 68.2 % 47-70 [facility] No Panel InformationOrdered By: Safia Ruelas on 04-29-2025 21 U/L <32 [facility] Nucleated red blood cell per centageOrdered By: Safia Ruelas on 09-10-2024 Nucleated RBC/100 WBC (Bld) [Ratio] 0 % 0-5 [facility] Platelet countOrdered By: Balbir Ruelas on 09-10-2024 Platelets (Bld) [#/Vol] 190 10*3/uL 150-450 [facility] Potassium measurement (mass/ volume)Ordered By: Safia Ruelas on 09-10-2024 Potassium (Unsp spec) [Mass/Vol] 4.3 mmol/L 3.3-5.1 [facility] RBC Auto (Bld) [#/Vol]Ordere d By: Safia Ruelas on 09-10-2024 RBC (Bld) [#/Vol] 4.52 10*6/uL 4.2-5.4 [facility] Serum creatinine measurement (mass/volume)Ordered By: Safia Ruelas on 09-10-2024 Creatinine [Mass/Vol] 0.98 mg/dL 0.70-1.20 [facility] Serum globulin measurementOr dered By: Safia Ruelas 09-10-2024 Globulin (S) [Mass/Vol] 3.3 g/dL 2.2-4.2 [facility] Serum glucose measurement (m ass/volume)Ordered By: Safia Ruelas 09-10-2024 Glucose [Mass/Vol] 181 mg/dL High 70-99 [facility] Serum or plasma alanine raymundo otransferase (ALT) measurementOrdered By: Safia Ruelas on 09-10-2024 ALT [Catalytic activity/Vol] 26 U/L <35 [facility] Serum or plasma albumin dayna urement (mass/volume)Ordered By: Safia Ruelas 09-10-2024 Albumin [Mass/Vol] 3.4 g/dL 3.4-4.8 [facility] Serum or plasma albumin/glob ulin mass ratioOrdered By: Safia Ruelas 09-10-2024 Albumin/Globulin [Mass ratio] 1.0 {ratio} 0.9-2.4 [facility] Serum or plasma alkaline hannah sphatase measurementOrdered By: Safia Ruelas on 09-10-2024 ALP [Catalytic activity/Vol] 114 U/L High 35-104 [facility] Serum or plasma calcium dayna urement (mass/volume)Ordered By: Safia Ruelas on 09-10-2024 Calcium [Mass/Vol] 9.3 mg/dL 7.6-11.0 [facility] Serum or plasma urea nitroge n measurement (mass/volume)Ordered By: Safia Ruelas on 09-10-2024 Urea nitrogen [Mass/Vol] 29 mg/dL High 4-19 [facility] Sodium levelOrdered By: Leonides josé antonio Jessenia on 09-10-2024 Sodium [Moles/Vol] 133 mmol/L 133-145 [facility] Total proteinOrdered By: Augustomelanie plataskye Ruelas on 09-10-2024 Protein [Mass/Vol] 6.7 g/dL 5.9-8.4 [facility] White blood cell (WBC) count Ordered By: Safia Ruelas on 09-10-2024 WBC (Bld) [#/Vol] 11.8 10*3/uL High 4.4-11.0 [facility] LABORATORYOrdered By: Abigail Smith on 09-09-2024 Glucose [Mass/Vol] 212 mg/dL High 82 - 115 mg/dL [employer] Work Phone: Glucose [Mass/Vol] 226 mg/dL High 82 - 115 mg/dL [employer] Work Phone: LABORATORYOrdered By: Zoila Zarco on 09-08-2024 Glucose [Mass/Vol] 149 mg/dL High 82 - 115 mg/dL [employer] Work Phone: LABORATORYOrdered By: Rob Palmer on 09-08-2024 Blood Glucose Testing Reason Routine (09/08/24 6:16 PM) [employer] Work Phone: Blood Glucose Testing Reason Routine (09/08/24 11:58 AM) [facility] Work Phone: LABORATORYOrdered By: Rob Palmer on 09-07-2024 Blood Glucose Testing Reason Routine (09/07/24 4:46 PM) [facility] Work Phone: .Auto Diffon 09-03-2024 Basophil, Absolute 0.1 10 3/mcL Normal 0.0-0.3 [facility] Comment on above: Performed By: #### A DIFF, CBC, ANEU, GFR, BMP #### [address] [address] Basophils/100 WBC (Bld) 1.0 % Normal 0.0-2.5 [facility] Comment on above: Performed By: #### A DIFF, CBC, ANEU, GFR, BMP #### [address] [address] Eosinophil, Absolute 0.2 10 3/mcL Normal 0.0-0.7 [facility] Comment on above: Performed By: #### A DIFF, CBC, ANEU, GFR, BMP #### [address] [address] Eosinophils/100 WBC (Bld) 3.2 % Normal 0.0-6.0 [facility] Comment on above: Performed By: #### A DIFF, CBC, ANEU, GFR, BMP #### [address] [address] Lymphocyte, Absolute 2.0 10 3/mcL Normal 0.9-4.3 [facility] Comment on above: Performed By: #### A DIFF, CBC, ANEU, GFR, BMP #### [address] [address] Lymphocytes/100 WBC (Bld) 26.6 % Normal 20.0-40.0 [facility] Comment on above: Performed By: #### A DIFF, CBC, ANEU, GFR, BMP #### [address] [address] Monocyte, Absolute 0.7 10 3/mcL Normal 0.1-1.4 [facility] Comment on above: Performed By: #### A DIFF, CBC, ANEU, GFR, BMP #### [address] [address] Monocytes/100 WBC (Bld) 9.7 % Normal 2.0-13.0 [facility] Comment on above: Performed By: #### A DIFF, CBC, ANEU, GFR, BMP #### [address] [address] Neutrophils/100 WBC (Bld) 59.5 % Normal 50.0-75.0 [facility] Comment on above: Performed By: #### A DIFF, CBC, ANEU, GFR, BMP #### [address] [address] .GFRon 09-03-2024 Estimated Glomerular Filtration Rate 57 ml/min/1.73sqm Normal [facility] Comment on above: Result [...] DIFF, CBC, ANEU, GFR, BMP #### [address] [address] .NEUABSon 09-03-2024 Neutrophil, Absolute 4.5 10 3/mcL Normal 2.3-8.1 [facility] Comment on above: Performed By: #### A DIFF, CBC, ANEU, GFR, BMP #### [address] [address] B12on 09-03-2024 Cobalamin (Vitamin B12) [Mass/Vol] 834 pg/mL Normal 211-911 [facility] Comment on above: Performed By: #### A DIFF, CBC, ANEU, GFR, BMP #### [place] [address] CBCon 09-03-2024 Erythrocyte distribution width (RBC) [Ratio] 14.7 % Normal 11.5-15.5 [facility] Comment on above: Performed By: #### A DIFF, CBC, ANEU, GFR, BMP #### [place] [address] Hematocrit (Bld) [Volume fraction] 39.7 % Normal 34.0-46.0 [facility] Comment on above: Performed By: #### A DIFF, CBC, ANEU, GFR, BMP #### [place] [address] Hgb 13.2 G/dL Normal 12.0-16.0 [facility] Comment on above: Performed By: #### A DIFF, CBC, ANEU, GFR, BMP #### [place] [address] MCH (RBC) [Entitic mass] 30.6 pg Normal 27.0-33.0 [facility] Comment on above: Performed By: #### A DIFF, CBC, ANEU, GFR, BMP #### [place] [address] MCHC 33.3 G/dL Normal 32.0-36.0 [facility] Comment on above: Performed By: #### A DIFF, CBC, ANEU, GFR, BMP #### [place] [address] MCV (RBC) [Entitic vol] 91.9 fL Normal 80.0-99.0 [facility] Comment on above: Performed By: #### A DIFF, CBC, ANEU, GFR, BMP #### [place] [address] Platelet 228 10 3/mcL Normal 150-450 [facility] Comment on above: Performed By: #### A DIFF, CBC, ANEU, GFR, BMP #### [place] [address] Platelet mean volume (Bld) [Entitic vol] 10.1 fL Normal 6.6-10.5 [facility] Comment on above: Performed By: #### A DIFF, CBC, ANEU, GFR, BMP #### [place] [id number] RBC 4.32 10 6/mcL Normal 4.10-5.30 [facility] Comment on above: Performed By: #### A DIFF, CBC, ANEU, GFR, BMP #### [place] [id number] WBC 7.6 10 3/mcL Normal 4.5-10.8 [facility] Comment on above: Performed By: #### A DIFF, CBC, ANEU, GFR, BMP #### [place] [id number] CMPon 09-03-2024 Albumin Level 3.0 G/dL Low 3.2-4.8 [facility] Comment on above: Performed By: #### A DIFF, CBC, ANEU, GFR, BMP #### [place] [address] Albumin/Globulin [Mass ratio] 0.9 {ratio} Normal 0.9-1.6 [facility] Comment on above: Performed By: #### A DIFF, CBC, ANEU, GFR, BMP #### [place] [address] ALP [Catalytic activity/Vol] 115 U/L Normal 38-126 [facility] Comment on above: Performed By: #### A DIFF, CBC, ANEU, GFR, BMP #### [place] [id number] ALT [Catalytic activity/Vol] 37 U/L Normal 10-49 [facility] Comment on above: Performed By: #### A DIFF, CBC, ANEU, GFR, BMP #### [address] [address] AST [Catalytic activity/Vol] 31 U/L Normal 8-34 [facility] Comment on above: Performed By: #### A DIFF, CBC, ANEU, GFR, BMP #### [place] [address] Bili Total 0.50 mg/dL Normal 0.20-1.20 [facility] Comment on above: Result Comment: Use of this assay is not recommended for patients undergoing treatment with eltrombopag due to the potential for falsely elevated results. Performed By: #### A DIFF, CBC, ANEU, GFR, BMP #### [place] [id number] BUN/Creatinine Ratio 29.7 ratio High 10.0-22.0 [facility] Comment on above: Performed By: #### A DIFF, CBC, ANEU, GFR, BMP #### [place] [id number] Calcium [Mass/Vol] 9.6 mg/dL Normal 8.7-10.4 [facility] Comment on above: Performed By: #### A DIFF, CBC, ANEU, GFR, BMP #### [place] [id number] Chloride [Moles/Vol] 101 mmol/L Normal 98-110 [facility] Comment on above: Performed By: #### A DIFF, CBC, ANEU, GFR, BMP #### [place] [address] CO2 [Moles/Vol] 27 mmol/L Normal 22-32 [facility] Comment on above: Performed By: #### A DIFF, CBC, ANEU, GFR, BMP #### [place] [address] Creatinine [Mass/Vol] 1.01 mg/dL Normal 0.50-1.20 [facility] Comment on above: Result Comment: Test ing performed on LibriLoop analyzer using enzymatic creatinine methodology. Performed By: #### A DIFF, CBC, ANEU, GFR, BMP #### [place] [id number] Electrolyte Balance 10.0 mEq/L Normal 4.0-15.0 [facility] Comment on above: Performed By: #### A DIFF, CBC, ANEU, GFR, BMP #### [place] [id number] Globulin 3.4 G/dL Normal 1.5-3.8 [facility] Comment on above: Performed By: #### A DIFF, CBC, ANEU, GFR, BMP #### [address] [address] Glucose [Mass/Vol] 187 mg/dL High 82-115 [facility] Comment on above: Performed By: #### A DIFF, CBC, ANEU, GFR, BMP #### [address] [address] Potassium [Moles/Vol] 4.6 mmol/L Normal 3.5-5.0 [facility] Comment on above: Performed By: #### A DIFF, CBC, ANEU, GFR, BMP #### [address] [address] Sodium [Moles/Vol] 138 mmol/L Normal 136-145 [facility] Comment on above: Performed By: #### A DIFF, CBC, ANEU, GFR, BMP #### [address] [address] Total Protein 6.4 G/dL Normal 5.7-8.2 [facility] Comment on above: Performed By: #### A DIFF, CBC, ANEU, GFR, BMP #### [address] [address] Urea nitrogen [Mass/Vol] 30.0 mg/dL High 8.0-22.0 [facility] Comment on above: Performed By: #### A DIFF, CBC, ANEU, GFR, BMP #### [address] [address] LABORATORYOrdered By: Ann Carrillo on 09-03-2024 Glucose [Mass/Vol] 270 mg/dL [facility] Work Phone: LABORATORYOrdered By: SYSTEM SYSTEM [...] above: Interpretive Data: T esting performed on LibriLoop analyzer using enzymatic creatinine methodology. Electrolyte Balance [...] TSH 3.920 mIU/mL Normal 0.550-4.780 [facility] Comment on above: Performed By: #### A DIFF, CBC, ANEU, GFR, BMP #### [place] [address] CT HEAD OR BRAIN W/O CONTRAS Ton [...] 09/02/2024 3:10:44 PM Ordering Provider: SILVINO Anderson [facility] [place] 08-30-2024 CNPN Telephone (FAMWS) LINDSAY ACUNA ([id number]) 1945 F Date Time Provider Department 08/30/24 [facility] During your visit today, we recorded the following information about you: Jaiden Paulino, RN 08/30/2024 9:11 AM Signed Marya- [facility] reports patient was in [facility] with dx: stroke, and transferred to [facility]. Pt will be discharged from [facility] on 09/07/24 to home with [facility] SN PT OT ST AND [facility]HA[facility]. Asking if pcp agreeable to follow for C. Please phone Marya with verbal: [phone] Mj Glover APRN.GARRETT 08/30/2024 9:19 AM Signed Please let know that Dr. Caruso's team will follow orders. Okay to proceed. Mj Glover APRN.Fouzia Reynoso LPN 08/30/2024 10:09 AM Signed Marya with [facility] notified. Allergies As of Date: 08/30/2024 Noted Allergy Reaction BENZOCAINE 07/08/2005 2 - Rash COCAINE 05/28/2008 Comments: Inverted T PERFUMES 07/08/2005 12 - Shortness of Breath Comments: coughes and chokes SULFA (SULFONAMIDE ANTIBIOTICS) 07/08/2005 5 - Intolerance Date Reviewed: 06/26/2024 Reviewed by: Bret Arambula LPN - Fully Assessed Reason for Visit: [facility] requesting verbal agree to follow [...] daily with breakfast. - blood sugar diagnostic (MinekeyTOUCH ULTRA TEST) test strip Test Blood Sugar one times daily Dx: E11.29 Insulin: No - lancets (MinekeyTOUCH DELICA PLUS LANCET) 30 gauge Test blood [...] MILLER on 08/30/[address] [facility] .Auto Diffon 08-26-2024 Basophil, Absolute 0.1 10 3/mcL Normal 0.0-0.3 [facility] Comment on above: Performed By: #### A DIFF, CBC, ANEU, GFR, BMP #### [address] [address] Basophils/100 WBC (Bld) 1.0 % Normal 0.0-2.5 [facility] Comment on above: Performed By: #### A DIFF, CBC, ANEU, GFR, BMP #### [address] [address] Eosinophil, Absolute 0.3 10 3/mcL Normal 0.0-0.7 [facility] Comment on above: Performed By: #### A DIFF, CBC, ANEU, GFR, BMP #### [address] [address] Eosinophils/100 WBC (Bld) 4.2 % Normal 0.0-6.0 [facility] Comment on above: Performed By: #### A DIFF, CBC, ANEU, GFR, BMP #### [address] [address] Lymphocyte, Absolute 2.2 10 3/mcL Normal 0.9-4.3 [facility] Comment on above: Performed By: #### A DIFF, CBC, ANEU, GFR, BMP #### [address] [address] Lymphocytes/100 WBC (Bld) 26.3 % Normal 20.0-40.0 [facility] Comment on above: Performed By: #### A DIFF, CBC, ANEU, GFR, BMP #### [address] [address] Monocyte, Absolute 0.9 10 3/mcL Normal 0.1-1.4 [facility] Comment on above: Performed By: #### A DIFF, CBC, ANEU, GFR, BMP #### [address] [address] Monocytes/100 WBC (Bld) 11.4 % Normal 2.0-13.0 [facility] Comment on above: Performed By: #### A DIFF, CBC, ANEU, GFR, BMP #### [address] [address] Neutrophils/100 WBC (Bld) 57.1 % Normal 50.0-75.0 [facility] Comment on above: Performed By: #### A DIFF, CBC, ANEU, GFR, BMP #### [address] [address] .GFRon 08-26-2024 Estimated Glomerular Filtration Rate 59 ml/min/1.73sqm Normal [facility] Comment on above: Result [...] DIFF, CBC, ANEU, GFR, BMP #### [address] [address] .NEUABSon 08-26-2024 Neutrophil, Absolute 4.7 10 3/mcL Normal 2.3-8.1 [facility] Comment on above: Performed By: #### A DIFF, CBC, ANEU, GFR, BMP #### [address] [address] BMPon 08-26-2024 BUN/Creatinine Ratio 35.1 ratio High 10.0-22.0 [facility] Comment on above: Performed By: #### A DIFF, CBC, ANEU, GFR, BMP #### [address] [address] Calcium [Mass/Vol] 9.8 mg/dL Normal 8.7-10.4 [facility] Comment on above: Performed By: #### A DIFF, CBC, ANEU, GFR, BMP #### [address] [address] Chloride [Moles/Vol] 98 mmol/L Normal 98-110 [facility] Comment on above: Performed By: #### A DIFF, CBC, ANEU, GFR, BMP #### [address] [address] CO2 [Moles/Vol] 25 mmol/L Normal 22-32 [facility] Comment on above: Performed By: #### A DIFF, CBC, ANEU, GFR, BMP #### [address] [address] Creatinine [Mass/Vol] 0.97 mg/dL Normal 0.50-1.20 [facility] Comment on above: Result Comment: Test ing performed on LibriLoop analyzer using enzymatic creatinine methodology. Performed By: #### A DIFF, CBC, ANEU, GFR, BMP #### [place] [address] Electrolyte Balance 12.0 mEq/L Normal 4.0-15.0 [facility] Comment on above: Performed By: #### A DIFF, CBC, ANEU, GFR, BMP #### [address] [address] Glucose [Mass/Vol] 160 mg/dL High 82-115 [facility] Comment on above: Performed By: #### A DIFF, CBC, ANEU, GFR, BMP #### [address] [address] Potassium [Moles/Vol] 4.7 mmol/L Normal 3.5-5.0 [facility] Comment on above: Result Comment: Spec imen slightly hemolyzed. Performed By: #### A DIFF, CBC, ANEU, GFR, BMP #### [address] [address] Sodium [Moles/Vol] 135 mmol/L Low 136-145 [facility] Comment on above: Performed By: #### A DIFF, CBC, ANEU, GFR, BMP #### [address] [address] Urea nitrogen [Mass/Vol] 34.0 mg/dL High 8.0-22.0 [facility] Comment on above: Performed By: #### A DIFF, CBC, ANEU, GFR, BMP #### [address] [address] CBCon 08-26-2024 Erythrocyte distribution width (RBC) [Ratio] 14.0 % Normal 11.5-15.5 [facility] Comment on above: Performed By: #### A DIFF, CBC, ANEU, GFR, BMP #### [place] [address] Hematocrit (Bld) [Volume fraction] 41.0 % Normal 34.0-46.0 [facility] Comment on above: Performed By: #### A DIFF, CBC, ANEU, GFR, BMP #### [place] [address] Hgb 13.4 G/dL Normal 12.0-16.0 [facility] Comment on above: Performed By: #### A DIFF, CBC, ANEU, GFR, BMP #### [place] [id number] MCH (RBC) [Entitic mass] 30.0 pg Normal 27.0-33.0 [facility] Comment on above: Performed By: #### A DIFF, CBC, ANEU, GFR, BMP #### [place] [id number] MCHC 32.7 G/dL Normal 32.0-36.0 [facility] Comment on above: Performed By: #### A DIFF, CBC, ANEU, GFR, BMP #### [place] [address] MCV (RBC) [Entitic vol] 91.9 fL Normal 80.0-99.0 [facility] Comment on above: Performed By: #### A DIFF, CBC, ANEU, GFR, BMP #### [place] [id number] Platelet 297 10 3/mcL Normal 150-450 [facility] Comment on above: Performed By: #### A DIFF, CBC, ANEU, GFR, BMP #### [place] [id number] [place] [address] Platelet mean volume (Bld) [Entitic vol] 11.0 fL High 6.6-10.5 [facility] Comment on above: Performed By: #### A DIFF, CBC, ANEU, GFR, BMP #### [address] [address] RBC 4.46 10 6/mcL Normal 4.10-5.30 [facility] Comment on above: Performed By: #### A DIFF, CBC, ANEU, GFR, BMP #### [address] [address] WBC 8.3 10 3/mcL Normal 4.5-10.8 [facility] Comment on above: Performed By: #### A DIFF, CBC, ANEU, GFR, BMP #### [address] [address] LABORATORYOrdered By: SYSTEM SYSTEM on 08-26-2024 Basophils [...] above: Interpretive Data: T esting performed on LibriLoop analyzer using enzymatic creatinine methodology. Electrolyte Balance [...] XR HAND AND WRIST 6 VIEWS LE [facility] 08-25-2024 XR HAND AND WRIST 6 [...] 08/25/2024 2:27:26 PM Ordering Provider: JACKLYN LINDSEY [facility] MAIN XR HUMERUS MINIMUM 2 VIEWS L [facility] 08-25-2024 XR HUMERUS MINIMUM 2 VIEWS LEFT [...] Sign Date: 08/25/2024 2:26:11 PM Ordering Provider: [facility] MAIN XR SHOULDER MINIMUM 2 VIEWS [...] Sign Date: 08/25/2024 2:26:45 PM Ordering Provider: [facility] LABORATORYOrdered By: Kala lux on 08-23-2024 Glucose [Mass/Vol] 278 mg/dL [facility] [employer] Work Phone: LABORATORYOrdered By: Kala lux on 08-22-2024 Glucose [Mass/Vol] 320 mg/dL [facility] Work Phone: A1Con 08-21-2024 Glucose [Mass/Vol] 194 mg/dL Normal [facility] Comment on above: Result Comment: Nancy mated Average Glucose calculated by equation ((28.7xA1C)-46.7) Estimated average glucose (eAG) is a calculated value from Hemoglobin A1C and is life assurance representative of the average blood glucose level in the last 2-3 month period. Normal range: less than 114 mg/dL Performed By: #### A 1C #### [address] [address] HbA1c (Bld) [Mass fraction] 8.4 % High 4.0-6.0 [facility] Comment on above: Performed By: #### A 1C #### [address] [address] LABORATORYOrdered By: SYSTEM SYSTEM on 08-21-2024 Glucose [...] Basophil, Absolute 0.1 10 3/mcL Normal 0.0-0.3 [facility] Comment on above: Performed By: #### B MP, ADIFF, CBC, GFR, ANEU #### [address] [address] Basophils/100 WBC (Bld) 1.1 % Normal 0.0-2.5 [facility] Comment on above: Performed By: #### B MP, ADIFF, CBC, GFR, ANEU #### [address] [address] Eosinophil, Absolute 0.3 10 3/mcL Normal 0.0-0.7 [facility] Comment on above: Performed By: #### B MP, ADIFF, CBC, GFR, ANEU #### [address] [address] Eosinophils/100 WBC (Bld) 3.6 % Normal 0.0-6.0 [facility] Comment on above: Performed By: #### B MP, ADIFF, CBC, GFR, ANEU #### [address] [address] Lymphocyte, Absolute 1.7 10 3/mcL Normal 0.9-4.3 [facility] Comment on above: Performed By: #### B MP, ADIFF, CBC, GFR, ANEU #### [address] [address] Lymphocytes/100 WBC (Bld) 20.8 % Normal 20.0-40.0 [facility] Comment on above: Performed By: #### B MP, ADIFF, CBC, GFR, ANEU #### [address] [address] Monocyte, Absolute 0.9 10 3/mcL Normal 0.1-1.4 [facility] Comment on above: Performed By: #### B MP, ADIFF, CBC, GFR, ANEU #### [address] [address] Monocytes/100 WBC (Bld) 11.4 % Normal 2.0-13.0 [facility] Comment on above: Performed By: #### B MP, ADIFF, CBC, GFR, ANEU #### [address] [address] Neutrophils/100 WBC (Bld) 63.1 % Normal 50.0-75.0 [facility] Comment on above: Performed By: #### B MP, ADIFF, CBC, GFR, ANEU #### [address] [address] .GFRon 08-20-2024 Estimated Glomerular Filtration Rate 55 ml/min/1.73sqm [facility] Comment on above: Result Comment: Stages [...] A DIFF, CBC, ANEU, GFR, BMP #### [place] [id number] .NEUABSon 08-20-2024 Neutrophil, Absolute 5.1 10 3/mcL Normal 2.3-8.1 [facility] Comment on above: Performed By: #### B MP, ADIFF, CBC, GFR, ANEU #### [place] [address] BMPon 08-20-2024 BUN/Creatinine Ratio 29.8 ratio High 10.0-22.0 [facility] Comment on above: Performed By: #### B MP, ADIFF, CBC, GFR, ANEU #### [place] [address] Calcium [Mass/Vol] 9.8 mg/dL Normal 8.7-10.4 [facility] Comment on above: Performed By: #### B MP, ADIFF, CBC, GFR, ANEU #### [place] [address] Chloride [Moles/Vol] 95 mmol/L Low 98-110 [facility] Comment on above: Performed By: #### B MP, ADIFF, CBC, GFR, ANEU #### [place] [address] CO2 [Moles/Vol] 34 mmol/L High 22-32 [facility] Comment on above: Performed By: #### B MP, ADIFF, CBC, GFR, ANEU #### [place] [id number] Creatinine [Mass/Vol] 1.04 mg/dL Normal 0.50-1.20 [facility] Comment on above: Result Comment: Test ing performed on LibriLoop analyzer using enzymatic creatinine methodology. Performed By: #### B MP, ADIFF, CBC, GFR, ANEU #### [address] [address] Electrolyte Balance 5.0 mEq/L Normal 4.0-15.0 [facility] Comment on above: Performed By: #### B MP, ADIFF, CBC, GFR, ANEU #### [address] [address] Glucose [Mass/Vol] 244 mg/dL High 82-115 [facility] Comment on above: Performed By: #### B MP, ADIFF, CBC, GFR, ANEU #### [address] [address] Potassium [Moles/Vol] 4.8 mmol/L Normal 3.5-5.0 [facility] Comment on above: Result Comment: Spec imen slightly hemolyzed. Performed By: #### B MP, ADIFF, CBC, GFR, ANEU #### [place] [id number] Sodium [Moles/Vol] 134 mmol/L Low 136-145 [facility] Comment on above: Performed By: #### B MP, ADIFF, CBC, GFR, ANEU #### [place] [id number] Urea nitrogen [Mass/Vol] 31.0 mg/dL High 8.0-22.0 [facility] Comment on above: Performed By: #### B MP, ADIFF, CBC, GFR, ANEU #### [address] [address] CBCon 08-20-2024 Erythrocyte distribution width (RBC) [Ratio] 14.0 % Normal 11.5-15.5 [facility] Comment on above: Performed By: #### B MP, ADIFF, CBC, GFR, ANEU #### [place] [id number] Hematocrit (Bld) [Volume fraction] 41.9 % Normal 34.0-46.0 [facility] Comment on above: Performed By: #### B MP, ADIFF, CBC, GFR, ANEU #### [place] [id number] Hgb 13.6 G/dL Normal 12.0-16.0 [facility] Comment on above: Performed By: #### B MP, ADIFF, CBC, GFR, ANEU #### [place] [id number] MCH (RBC) [Entitic mass] 29.7 pg Normal 27.0-33.0 [facility] Comment on above: Performed By: #### B MP, ADIFF, CBC, GFR, ANEU #### [place] [address] MCHC 32.4 G/dL Normal 32.0-36.0 [facility] Comment on above: Performed By: #### B MP, ADIFF, CBC, GFR, ANEU #### [place] [address] MCV (RBC) [Entitic vol] 91.5 fL Normal 80.0-99.0 [facility] Comment on above: Performed By: #### B MP, ADIFF, CBC, GFR, ANEU #### [place] [address] Platelet 301 10 3/mcL Normal 150-450 [facility] Comment on above: Performed By: #### B MP, ADIFF, CBC, GFR, ANEU #### [place] [address] Platelet mean volume (Bld) [Entitic vol] 11.0 fL High 6.6-10.5 [facility] Comment on above: Performed By: #### B MP, ADIFF, CBC, GFR, ANEU #### [place] [address] RBC 4.58 10 6/mcL Normal 4.10-5.30 [facility] Comment on above: Performed By: #### B MP, ADIFF, CBC, GFR, ANEU #### [place] [id number] WBC 8.1 10 3/mcL Normal 4.5-10.8 [facility] Comment on above: Performed By: #### B MP, ADIFF, CBC, GFR, ANEU #### [place] [id number] LABORATORYOrdered By: SYSTEM SYSTEM on 08-20-2024 Basophils [...] above: Interpretive Data: T esting performed on LibriLoop analyzer using enzymatic creatinine methodology. Electrolyte Balance [...] PM Ordering Provider: NANDO Anderson [facility] .Auto Diffon 08-16-2024 Basophil, Absolute 0.1 10 3/mcL Normal 0.0-0.3 [facility] Comment on above: Performed By: #### A DIFF, CBC, ANEU, GFR, BMP #### [address] [address] Basophils/100 WBC (Bld) 0.7 % Normal 0.0-2.5 [facility] Comment on above: Performed By: #### A DIFF, CBC, ANEU, GFR, BMP #### [address] [address] Eosinophil, Absolute 0.3 10 3/mcL Normal 0.0-0.7 [facility] Comment on above: Performed By: #### A DIFF, CBC, ANEU, GFR, BMP #### [address] [address] Eosinophils/100 WBC (Bld) 2.1 % Normal 0.0-6.0 [facility] Comment on above: Performed By: #### A DIFF, CBC, ANEU, GFR, BMP #### [address] [address] Lymphocyte, Absolute 1.9 10 3/mcL Normal 0.9-4.3 [facility] Comment on above: Performed By: #### A DIFF, CBC, ANEU, GFR, BMP #### [address] [address] Lymphocytes/100 WBC (Bld) 14.8 % Low 20.0-40.0 [facility] Comment on above: Performed By: #### A DIFF, CBC, ANEU, GFR, BMP #### [address] [address] Monocyte, Absolute 1.2 10 3/mcL Normal 0.1-1.4 [facility] Comment on above: Performed By: #### A DIFF, CBC, ANEU, GFR, BMP #### [address] [address] Monocytes/100 WBC (Bld) 9.8 % Normal 2.0-13.0 [facility] Comment on above: Performed By: #### A DIFF, CBC, ANEU, GFR, BMP #### [address] [address] Neutrophils/100 WBC (Bld) 72.6 % Normal 50.0-75.0 [facility] Comment on above: Performed By: #### A DIFF, CBC, ANEU, GFR, BMP #### [address] [address] .GFRon 08-16-2024 Estimated Glomerular Filtration Rate 58 ml/min/1.73sqm Normal [facility] Comment on above: Result [...] DIFF, CBC, ANEU, GFR, BMP #### [address] [address] .NEUABSon 08-16-2024 Neutrophil, Absolute 9.2 10 3/mcL High 2.3-8.1 [facility] Comment on above: Performed By: #### A DIFF, CBC, ANEU, GFR, BMP #### [address] [address] BMPon 08-16-2024 BUN/Creatinine Ratio 34.3 ratio High 10.0-22.0 [facility] Comment on above: Performed By: #### A DIFF, CBC, ANEU, GFR, BMP #### [place] [id number] Calcium [Mass/Vol] 9.0 mg/dL Normal 8.7-10.4 [facility] Comment on above: Performed By: #### A DIFF, CBC, ANEU, GFR, BMP #### [place] [id number] Chloride [Moles/Vol] 100 mmol/L Normal 98-110 [facility] Comment on above: Performed By: #### A DIFF, CBC, ANEU, GFR, BMP #### [place] [id number] CO2 [Moles/Vol] 30 mmol/L Normal 22-32 [facility] Comment on above: Performed By: #### A DIFF, CBC, ANEU, GFR, BMP #### [place] [id number] Creatinine [Mass/Vol] 0.99 mg/dL Normal 0.50-1.20 [facility] Comment on above: Result Comment: Test ing performed on LibriLoop analyzer using enzymatic creatinine methodology. Performed By: #### A DIFF, CBC, ANEU, GFR, BMP #### [place] [id number] Electrolyte Balance 5.0 mEq/L Normal 4.0-15.0 [facility] Comment on above: Performed By: #### A DIFF, CBC, ANEU, GFR, BMP #### [place] [id number] Glucose [Mass/Vol] 259 mg/dL High 82-115 [facility] Comment on above: Performed By: #### A DIFF, CBC, ANEU, GFR, BMP #### [place] [address] Potassium [Moles/Vol] 5.0 mmol/L Normal 3.5-5.0 [facility] Comment on above: Performed By: #### A DIFF, CBC, ANEU, GFR, BMP #### [place] [address] Sodium [Moles/Vol] 135 mmol/L Low 136-145 [facility] Comment on above: Performed By: #### A DIFF, CBC, ANEU, GFR, BMP #### [place] [address] Urea nitrogen [Mass/Vol] 34.0 mg/dL High 8.0-22.0 [facility] Comment on above: Performed By: #### A DIFF, CBC, ANEU, GFR, BMP #### [place] [id number] CBCon 08-16-2024 Erythrocyte distribution width (RBC) [Ratio] 13.7 % Normal 11.5-15.5 [facility] Comment on above: Performed By: #### A DIFF, CBC, ANEU, GFR, BMP #### [place] [address] Hematocrit (Bld) [Volume fraction] 43.3 % Normal 34.0-46.0 [facility] Comment on above: Performed By: #### A DIFF, CBC, ANEU, GFR, BMP #### [place] [address] Hgb 13.9 G/dL Normal 12.0-16.0 [facility] Comment on above: Performed By: #### A DIFF, CBC, ANEU, GFR, BMP #### [place] [address] MCH (RBC) [Entitic mass] 30.0 pg Normal 27.0-33.0 [facility] Comment on above: Performed By: #### A DIFF, CBC, ANEU, GFR, BMP #### [address] [address] MCHC 32.1 G/dL Normal 32.0-36.0 [facility] Comment on above: Performed By: #### A DIFF, CBC, ANEU, GFR, BMP #### [address] [address] MCV (RBC) [Entitic vol] 93.6 fL Normal 80.0-99.0 [facility] Comment on above: Performed By: #### A DIFF, CBC, ANEU, GFR, BMP #### [address] [address] Platelet 230 10 3/mcL Normal 150-450 [facility] Comment on above: Performed By: #### A DIFF, CBC, ANEU, GFR, BMP #### [place] [id number] Platelet mean volume (Bld) [Entitic vol] 10.7 fL High 6.6-10.5 [facility] Comment on above: Performed By: #### A DIFF, CBC, ANEU, GFR, BMP #### [address] [address] RBC 4.63 10 6/mcL Normal 4.10-5.30 [facility] Comment on above: Performed By: #### A DIFF, CBC, ANEU, GFR, BMP #### [address] [address] WBC 12.7 10 3/mcL High 4.5-10.8 [facility] Comment on above: Performed By: #### A DIFF, CBC, ANEU, GFR, BMP #### [address] [address] LABORATORYOrdered By: Marily Panda on 08-16-2024 Blood Glucose Interventions Administered agent to decrease blood sugar (08/16/24 12:23 PM) [employer] Work Phone: Blood Glucose Interventions Retest (08/16/24 10:15 AM) [employer] Work Phone: Bacteria identified Cx Nom ( Bld)on 08-15-2024 Bacteria identified Cx Nom (Unsp spec) NO GROWTH DAY 5 OF 5 [facility] CARDIAC RHYTHMon 08-15-2024 [facility] CBC,PLATELETSon 08-15-2024 Erythrocyte distribution width (RBC) [Ratio] 13.4 % 10.8 - 14.9 % [facility] Hematocrit (Bld) [Volume fraction] 43.8 % 34.9 - 44.3 % [facility] Hemoglobin (Bld) [Mass/Vol] 13.5 g/dL 11.4 - 15.2 g/dL [facility] Interpretation and review of laboratory results Abnormal [facility] MCH (RBC) [Entitic mass] 28.9 pg 25.9 - 33.9 pg [facility] MCHC (RBC) [Mass/Vol] 30.8 g/dL Low 31.4 - 35.9 g/dL [facility] MCV (RBC) [Entitic vol] 93.8 fL 79.6 - 97.7 fL [facility] Platelet mean volume (Bld) [Entitic vol] 12 fL 8.5 - 12.2 fL [facility] Platelets (Bld) [#/Vol] 252 10*3/uL 150 - 393 K/uL [facility] RBC (Bld) [#/Vol] 4.67 10*6/uL [facility] WBC (Bld) [#/Vol] 11.94 10*3/uL High 3.99 - 11.19 K/uL [facility] Hematocrit (Bld) [Volume fraction] 43.8 % Normal 34.9-44.3 [facility] Comment on above: Performed By: #### X M #### [facility] (DEFAULT) [address] [address] Hemoglobin (Bld) [Mass/Vol] 13.5 g/dL Normal 11.4-15.2 [facility] Comment on above: Performed By: #### X M #### [facility] (DEFAULT) [address] [address] MCV (RBC) [Entitic vol] 93.8 fL Normal 79.6-97.[address] [facility] Comment on above: Performed By: #### X M #### [facility] (DEFAULT) [address] [address] Mean Cell Hgb 28.9 pg Normal 25.9-33.9 [facility] Comment on above: Performed By: #### X M #### [facility] (DEFAULT) [address] [address] Mean Cell Hgb Conc 30.8 g/dL Low 31.4-35.9 [facility] Comment on above: Performed By: #### X M #### [facility] (DEFAULT) [address] [address] Platelet mean volume (Bld) [Entitic vol] 12.0 fL Normal 8.5-12.2 [facility] Comment on above: Performed By: #### X M #### [facility] (DEFAULT) [address] [address] Platelets (Bld) [#/Vol] 252 10*3/uL Normal 150-393 [facility] Comment on above: Performed By: #### X M #### [facility] (DEFAULT) [address] [address] RBC (Bld) [#/Vol] 4.67 10*6/uL Normal 3.91-5.04 [facility] Comment on above: Performed By: #### X M #### [facility] (DEFAULT) [address] [address] RBC Distribution 13.4 % Normal 10.8-14.9 [facility] Comment on above: Performed By: #### X M #### [facility] (DEFAULT) [address] [address] WBC (Bld) [#/Vol] 11.94 10*3/uL High 3.99-11.19 [facility] Comment on above: Performed By: #### X M #### [facility] (DEFAULT) [address] [place] [address] CHEM 7 (LYTES,BUN,CREA,GLUC) on 08-15-2024 Anion gap [Moles/Vol] 16 mmol/L 7 - 17 mmol/L [facility] Chloride [Moles/Vol] 99 mmol/L 98 - 10 8 mmol/L [facility] CO2 [Moles/Vol] 25 mmol/L 21 - 31 mmol/L [facility] Creatinine [Mass/Vol] 1.27 mg/dL High 0.50 - 1.20 mg/dL [facility] eGFR, CKD-EPI, Female 43 Low - PINF [facility] Glucose [Mass/Vol] 214 mg/dL High 70 - 179 mg/dL [facility] Interpretation and review of laboratory results Abnormal [facility] Osmolality Calc [Osmolality] 306 High [facility] Potassium [Moles/Vol] 4.8 mmol/L 3.5 - 5.0 mmol/L [facility] Sodium [Moles/Vol] 135 mmol/L 135 - 145 mmol/L [facility] Urea nitrogen [Mass/Vol] 51 mg/dL High 7 - 25 mg/dL [facility] Urea nitrogen/Creatinine [Mass ratio] 40 mg/mg [facility] Anion gap [Moles/Vol] 16 mmol/L Normal 7-17 [facility] Comment on above: Performed By: #### [facility] #### [facility] (DEFAULT) [address] [place] [address] Chloride [Moles/Vol] 99 mmol/L Normal 98-108 [facility] Comment on above: Performed By: #### [facility] #### [facility] (DEFAULT) [address] [place] [address] CO2 [Moles/Vol] 25 mmol/L Normal 21-31 [facility] Comment on above: Performed By: #### [facility] #### [facility] (DEFAULT) [address] [place] [address] Creatinine [Mass/Vol] 1.27 mg/dL High 0.50-1.20 [facility] Comment on above: Performed By: #### H EMOGC #### [facility] (DEFAULT) [address] [place] [address] GFR/1.73 sq M.predicted among non-blacks MDRD (S/P/Bld) [Vol rate/Area] 43 mL/min/{1.73_m2} Low >=60 [facility] Comment on above: Result Comment: Repo rted eGFR is based on the CKD-EPI 2020 equation using creatinine, age, and sex. Performed By: #### H EMO #### [facility] (DEFAULT) [address] [place] [address] Glucose [Mass/Vol] 214 mg/dL High Nonfastin -179 mg/dL; Fastin-99 [facility] Comment on above: Performed By: #### H EMO #### [facility] (DEFAULT) [address] [place] [address] Osmolality [Osmolality] 306 mosm/kg High 278-305 [facility] Comment on above: Performed By: #### H EMO #### [facility] (DEFAULT) [address] [place] [address] Potassium [Moles/Vol] 4.8 mmol/L Normal 3.5-5.0 [facility] Comment on above: Performed By: #### H EMOGC #### [facility] (DEFAULT) [address] [place] [address] Sodium [Moles/Vol] 135 mmol/L Normal 135-145 [facility] Comment on above: Performed By: #### H EMOGC #### [facility] (DEFAULT) [address] [place] [address] Urea nitrogen [Mass/Vol] 51 mg/dL High 7-25 [facility] Comment on above: Performed By: #### [facility] #### [facility] (DEFAULT) [address] [place] [address] Urea nitrogen/Creatinine [Mass ratio] 40 mg/mg Normal [facility] Comment on above: Performed By: #### H EMO #### [facility] (DEFAULT) [address] [place] [address] GLUCOSE POCon 08-15-2024 Glucose [Mass/Vol] 190 mg/dL High 70 - 179 mg/dL [facility] Interpretation and review of laboratory results Abnormal [facility] POC Sample Type CAPBL [facility] Glucose [Mass/Vol] 146 mg/dL 70 - 179 mg/dL [facility] POC Sample Type CAPBL [facility] Glucose [Mass/Vol] 215 mg/dL High 70 - 179 mg/dL [facility] Interpretation and review of laboratory results Abnormal [facility] POC Sample Type CAPBL [facility] MAGNESIUMon 08-15-2024 Interpretation and review of laboratory results Normal [facility] Magnesium [Mass/Vol] 1.6 mg/dL 1.6 - 2 .6 mg/dL [facility] Magnesium [Mass/Vol] 1.6 mg/dL Normal 1.6-2.6 [facility] Comment on above: Performed By: #### [facility] #### [facility] (DEFAULT) [address] [place] [address] No Panel Informationon 08-15 [facility] CBC,PLATELETSon 08-14-2024 Erythrocyte distribution width (RBC) [Ratio] 13.4 % 10.8 - 14.9 % [facility] Hematocrit (Bld) [Volume fraction] 47.9 % High 34.9 - 44.3 % [facility] Hemoglobin (Bld) [Mass/Vol] 14.3 g/dL 11.4 - 15.2 g/dL [facility] Interpretation and review of laboratory results Abnormal [facility] MCH (RBC) [Entitic mass] 29.3 pg 25.9 - 33.9 pg [facility] MCHC (RBC) [Mass/Vol] 29.9 g/dL Low 31.4 - 35.9 g/dL [facility] MCV (RBC) [Entitic vol] 98.2 fL High 79.6 - 97.7 fL [facility] Platelet mean volume (Bld) [Entitic vol] 11.3 fL 8.5 - 12.2 fL [facility] Platelets (Bld) [#/Vol] 229 10*3/uL 150 - 393 K/uL [facility] RBC (Bld) [#/Vol] 4.88 10*6/uL [facility] WBC (Bld) [#/Vol] 12.14 10*3/uL High 3.99 - 11.19 K/uL [facility] Hematocrit (Bld) [Volume fraction] 47.9 % High 34.9-44.3 [facility] Comment on above: Performed By: #### X M #### [facility] (DEFAULT) [address] [place] [address] Hemoglobin (Bld) [Mass/Vol] 14.3 g/dL Normal 11.4-15.2 [facility] Comment on above: Performed By: #### X M #### [facility] (DEFAULT) [address] [place] [address] MCV (RBC) [Entitic vol] 98.2 fL High 79.6-97.[address] [facility] Comment on above: Performed By: #### X M #### [facility] (DEFAULT) [address] [place] [address] Mean Cell Hgb 29.3 pg Normal 25.9-33.9 [facility] Comment on above: Performed By: #### X M #### [facility] (DEFAULT) [address] [place] [address] Mean Cell Hgb Conc 29.9 g/dL Low 31.4-35.9 [facility] Comment on above: Performed By: #### X M #### [facility] (DEFAULT) [address] [place] [address] Platelet mean volume (Bld) [Entitic vol] 11.3 fL Normal 8.5-12.2 [facility] Comment on above: Performed By: #### X M #### [facility] (DEFAULT) [address] [place] [address] Platelets (Bld) [#/Vol] 229 10*3/uL Normal 150-393 [facility] Comment on above: Performed By: #### X M #### [facility] (DEFAULT) [address] [place] [address] RBC (Bld) [#/Vol] 4.88 10*6/uL Normal 3.91-5.04 [facility] Comment on above: Performed By: #### X M #### [facility] (DEFAULT) [address] [place] [address] RBC Distribution 13.4 % Normal 10.8-14.9 [facility] Comment on above: Performed By: #### X M #### [facility] (DEFAULT) [address] [place] [address] WBC (Bld) [#/Vol] 12.14 10*3/uL High 3.99-11.19 [facility] Comment on above: Performed By: #### X M #### [facility] (DEFAULT) [address] [place] [address] CHEM 7 (LYTES,BUN,CREA,GLUC) on 08-14-2024 Anion gap [Moles/Vol] 16 mmol/L 7 - 17 mmol/L [facility] Chloride [Moles/Vol] 101 mmol/L 98 - 10 8 mmol/L [facility] CO2 [Moles/Vol] 23 mmol/L 21 - 31 mmol/L [facility] Creatinine [Mass/Vol] 1.15 mg/dL 0.50 - 1.20 mg/dL [facility] eGFR, CKD-EPI, Female 48 Low - PINF [facility] Glucose [Mass/Vol] 208 mg/dL High 70 - 179 mg/dL [facility] Interpretation and review of laboratory results Abnormal [facility] Osmolality Calc [Osmolality] 304 [facility] Potassium [Moles/Vol] 4.7 mmol/L 3.5 - 5.0 mmol/L [facility] Sodium [Moles/Vol] 135 mmol/L 135 - 145 mmol/L [facility] Urea nitrogen [Mass/Vol] 47 mg/dL High 7 - 25 mg/dL [facility] Urea nitrogen/Creatinine [Mass ratio] 41 mg/mg [facility] Anion gap [Moles/Vol] 16 mmol/L Normal 7-17 [facility] Comment on above: Performed By: #### B LDCULT #### [facility] (DEFAULT) [address] [place] [address] Chloride [Moles/Vol] 101 mmol/L Normal 98-108 [facility] Comment on above: Performed By: #### B LDCULT #### [facility] (DEFAULT) [address] [place] [address] CO2 [Moles/Vol] 23 mmol/L Normal 21-31 [facility] Comment on above: Performed By: #### B LDCULT #### [facility] (DEFAULT) [address] [place] [address] Creatinine [Mass/Vol] 1.15 mg/dL Normal 0.50-1.20 [facility] Comment on above: Performed By: #### B LDCULT #### [facility] (DEFAULT) [address] [place] [address] GFR/1.73 sq M.predicted among non-blacks MDRD (S/P/Bld) [Vol rate/Area] 48 mL/min/{1.73_m2} Low >=60 [facility] Comment on above: Result Comment: Repo rted eGFR is based on the CKD-EPI 2020 equation using creatinine, age, and sex. Performed By: #### B LDCULT #### [place] [facility] (DEFAULT) [address] [place] [address] Glucose [Mass/Vol] 208 mg/dL High Nonfastin -179 mg/dL; Fastin-99 [facility] Comment on above: Performed By: #### B LDCULT #### [place] [facility] (DEFAULT) [address] [place] [address] Osmolality [Osmolality] 304 mosm/kg Normal 278-305 [facility] Comment on above: Performed By: #### B LDCULT #### [place] [facility] (DEFAULT) [address] [place] [address] Potassium [Moles/Vol] 4.7 mmol/L Normal 3.5-5.0 [facility] Comment on above: Performed By: #### B LDCULT #### [place] [facility] (DEFAULT) [address] [place] [address] Sodium [Moles/Vol] 135 mmol/L Normal 135-145 [facility] Comment on above: Performed By: #### B LDCULT #### [place] [facility] (DEFAULT) [address] [place] [address] Urea nitrogen [Mass/Vol] 47 mg/dL High 7-25 [facility] Comment on above: Performed By: #### B LDCULT #### [facility] (DEFAULT) [address] [place] [address] Urea nitrogen/Creatinine [Mass ratio] 41 mg/mg Normal [facility] Comment on above: Performed By: #### B LDCULT #### [facility] (DEFAULT) [address] [place] [address] GLUCOSE POCon 08-14-2024 Glucose [Mass/Vol] 204 mg/dL High 70 - 179 mg/dL [facility] Interpretation and review of laboratory results Abnormal [facility] POC Sample Type CAPBL [facility] Glucose [Mass/Vol] 264 mg/dL High 70 - 179 mg/dL [facility] Interpretation and review of laboratory results Abnormal [facility] POC Sample Type CAPBL [facility] Glucose [Mass/Vol] 189 mg/dL High 70 - 179 mg/dL [facility] Interpretation and review of laboratory results Abnormal [facility] POC Sample Type CAPBL [facility] MAGNESIUMon 08-14-2024 Interpretation and review of laboratory results Normal [facility] Magnesium [Mass/Vol] 1.6 mg/dL 1.6 - 2 .6 mg/dL [facility] Magnesium [Mass/Vol] 1.6 mg/dL Normal 1.6-2.6 [facility] Comment on above: Performed By: #### B LDCULT #### [facility] (DEFAULT) [address] [place] [address] No Panel Informationon 08-14 [facility] CBC,PLATELETSon 08-13-2024 Erythrocyte distribution width (RBC) [Ratio] 13.4 % 10.8 - 14.9 % [facility] Hematocrit (Bld) [Volume fraction] 45.7 % High 34.9 - 44.3 % [facility] Hemoglobin (Bld) [Mass/Vol] 14.3 g/dL 11.4 - 15.2 g/dL [facility] Interpretation and review of laboratory results Abnormal [facility] MCH (RBC) [Entitic mass] 29.5 pg 25.9 - 33.9 pg [facility] MCHC (RBC) [Mass/Vol] 31.3 g/dL Low 31.4 - 35.9 g/dL [facility] MCV (RBC) [Entitic vol] 94.2 fL 79.6 - 97.7 fL [facility] Platelet mean volume (Bld) [Entitic vol] 11.7 fL 8.5 - 12.2 fL [facility] Platelets (Bld) [#/Vol] 245 10*3/uL 150 - 393 K/uL [facility] RBC (Bld) [#/Vol] 4.85 10*6/uL [facility] WBC (Bld) [#/Vol] 12.02 10*3/uL High 3.99 - 11.19 K/uL [facility] Hematocrit (Bld) [Volume fraction] 45.7 % High 34.9-44.3 [facility] Comment on above: Performed By: #### [facility] #### [facility] (DEFAULT) [address] [address] Hemoglobin (Bld) [Mass/Vol] 14.3 g/dL Normal 11.4-15.2 [facility] Comment on above: Performed By: #### H EMO #### [facility] [place] (DEFAULT) [address] [place] [address] MCV (RBC) [Entitic vol] 94.2 fL Normal 79.6-97.[address] [facility] Comment on above: Performed By: #### [facility] [place] #### [facility] [place] (DEFAULT) [address] [address] Mean Cell Hgb 29.5 pg Normal 25.9-33.9 [facility] Comment on above: Performed By: #### H EMOGC #### [facility] [place] (DEFAULT) [address] [address] Mean Cell Hgb Conc 31.3 g/dL Low 31.4-35.9 [facility] Comment on above: Performed By: #### H EMOGC #### [facility] [place] (DEFAULT) [address] [place] [address] Platelet mean volume (Bld) [Entitic vol] 11.7 fL Normal 8.5-12.2 [facility] Comment on above: Performed By: #### H EMOGC #### [facility] [place] (DEFAULT) [address] [place] [address]407 Platelets (Bld) [#/Vol] 245 10*3/uL Normal 150-393 [facility] Comment on above: Performed By: #### H EMOGC #### [facility] [place] (DEFAULT) [address] [place] [address] 61569 RBC (Bld) [#/Vol] 4.85 10*6/uL Normal 3.91-5.04 [facility] Comment on above: Performed By: #### H EMO #### [facility] [place] (DEFAULT) [address] [place] [address] 62281 RBC Distribution 13.4 % Normal 10.8-14.9 [facility] Comment on above: Performed By: #### H EMOGC #### [facility] [place] (DEFAULT) [address] [place] [address] 60544 WBC (Bld) [#/Vol] 12.02 10*3/uL High 3.99-11.19 [facility] Comment on above: Performed By: #### H EMOGC #### [facility] [place] (DEFAULT) [address] [place] [address] CHEM 7 (LYTES,BUN,CREA,GLUC) on 08-13-2024 Anion gap [Moles/Vol] 15 mmol/L 7 - 17 mmol/L [facility] Chloride [Moles/Vol] 104 mmol/L 98 - 10 8 mmol/L [facility] CO2 [Moles/Vol] 23 mmol/L 21 - 31 mmol/L [facility] Creatinine [Mass/Vol] 1.18 mg/dL 0.50 - 1.20 mg/dL [facility] eGFR, CKD-EPI, Female 47 Low - PINF [facility] Glucose [Mass/Vol] 225 mg/dL High 70 - 179 mg/dL [facility] Interpretation and review of laboratory results Abnormal [facility] Osmolality Calc [Osmolality] 311 High [facility] Potassium [Moles/Vol] 4.6 mmol/L 3.5 - 5.0 mmol/L [facility] Sodium [Moles/Vol] 137 mmol/L 135 - 145 mmol/L [facility] Urea nitrogen [Mass/Vol] 55 mg/dL High 7 - 25 mg/dL [facility] Urea nitrogen/Creatinine [Mass ratio] 47 mg/mg [facility] Anion gap [Moles/Vol] 15 mmol/L Normal 7-17 [facility] Comment on above: Performed By: #### [facility] [place] #### [facility] [place] (DEFAULT) [address] [place] [address]657 Chloride [Moles/Vol] 104 mmol/L Normal 98-108 [facility] Comment on above: Performed By: #### [facility] [place] #### [facility] [place] (DEFAULT) [address] [place] [address] CO2 [Moles/Vol] 23 mmol/L Normal 21-31 [facility] Comment on above: Performed By: #### [facility] [place] #### [facility] [place] (DEFAULT) [address] [place] [address]115 Creatinine [Mass/Vol] 1.18 mg/dL Normal 0.50-1.20 [facility] Comment on above: Performed By: #### [facility] [place] #### [facility] [place] (DEFAULT) [address] [place] [address]15 GFR/1.73 sq M.predicted among non-blacks MDRD (S/P/Bld) [Vol rate/Area] 47 mL/min/{1.73_m2} Low >=60 [facility] Comment on above: Result Comment: Repo rted eGFR is based on the CKD-EPI 2020 equation using creatinine, age, and sex. Performed By: #### H EMOGC #### [facility] (DEFAULT) [address] [place] [address]89 Glucose [Mass/Vol] 225 mg/dL High Nonfastin -179 mg/dL; Fastin-99 [facility] Comment on above: Performed By: #### H EMOGC #### [facility] [place] (DEFAULT) [address] [place] [address] 38572 Osmolality [Osmolality] 311 mosm/kg High 278-305 [facility] Comment on above: Performed By: #### H EMOGC #### [facility] [place] (DEFAULT) [address] [place] [address]878 Potassium [Moles/Vol] 4.6 mmol/L Normal 3.5-5.0 [facility] Comment on above: Performed By: #### H EMOGC #### [facility] [place] (DEFAULT) [address] [place] [address] 96821 Sodium [Moles/Vol] 137 mmol/L Normal 135-145 [facility] Comment on above: Performed By: #### H EMOGC #### [facility] [place] (DEFAULT) [address] [place] [address] 76843 Urea nitrogen [Mass/Vol] 55 mg/dL High 7-25 [facility] Comment on above: Performed By: #### H EMOGC #### [facility] [place] (DEFAULT) [address] [place] [address] 63357 Urea nitrogen/Creatinine [Mass ratio] 47 mg/mg Normal [facility] Comment on above: Performed By: #### H EMOGC #### [facility] [place] (DEFAULT) [address] [place] [address] 27598 GLUCOSE POCon 08-13-2024 Glucose [Mass/Vol] 195 mg/dL High 70 - 179 mg/dL [facility] Interpretation and review of laboratory results Abnormal [facility] POC Sample Type CAPBL [facility] Glucose [Mass/Vol] 198 mg/dL High 70 - 179 mg/dL [facility] Interpretation and review of laboratory results Abnormal [facility] POC Sample Type CAPBL [facility] Glucose [Mass/Vol] 158 mg/dL 70 - 179 mg/dL [facility] POC Sample Type [facility] Glucose [Mass/Vol] 211 mg/dL High 70 - 179 mg/dL [facility] Interpretation and review of laboratory results Abnormal [facility] POC Sample Type CAPBL [facility] Glucose [Mass/Vol] 240 mg/dL High 70 - 179 mg/dL [facility] Interpretation and review of laboratory results Abnormal [facility]OC [facility] MAGNESIUMon 08-13-2024 Interpretation and review of laboratory results Normal [facility] Magnesium [Mass/Vol] 1.8 mg/dL 1.6 - 2 .6 mg/dL [facility] Magnesium [Mass/Vol] 1.8 mg/dL Normal 1.6-2.6 [facility] Comment on above: Performed By: #### [facility] [place] #### [facility] [place] (DEFAULT) [address] [place] [address] No Panel Informationon 08-13 [facility] CBC,PLATELETSon 08-12-2024 Erythrocyte distribution width (RBC) [Ratio] 13.6 % 10.8 - 14.9 % [facility] Hematocrit (Bld) [Volume fraction] 45.1 % High 34.9 - 44.3 % [facility] Hemoglobin (Bld) [Mass/Vol] 14.3 g/dL 11.4 - 15.2 g/dL [facility] Interpretation and review of laboratory results Abnormal [facility] MCH (RBC) [Entitic mass] 29.7 pg 25.9 - 33.9 pg [facility] MCHC (RBC) [Mass/Vol] 31.7 g/dL 31.4 - 35.9 g/dL [facility] MCV (RBC) [Entitic vol] 93.6 fL 79.6 - 97.7 fL [facility] Platelet mean volume (Bld) [Entitic vol] 11.4 fL 8.5 - 12.2 fL [facility] Platelets (Bld) [#/Vol] 241 10*3/uL 150 - 393 K/uL [facility] RBC (Bld) [#/Vol] 4.82 10*6/uL [facility] WBC (Bld) [#/Vol] 14.32 10*3/uL High 3.99 - 11.19 K/uL [facility] Hematocrit (Bld) [Volume fraction] 45.1 % High 34.9-44.3 [facility] Comment on above: Performed By: #### [facility] [place] #### [facility] [place] (DEFAULT) [address] [place] [address] Hemoglobin (Bld) [Mass/Vol] 14.3 g/dL Normal 11.4-15.2 [facility] Comment on above: Performed By: #### H EMO #### [facility] [place] (DEFAULT) [address] [place] [address] MCV (RBC) [Entitic vol] 93.6 fL Normal 79.6-97.[address] [facility] Comment on above: Performed By: #### H EMOGC #### [facility] [place] (DEFAULT) [address] [place] [address] Mean Cell Hgb 29.7 pg Normal 25.9-33.9 [facility] Comment on above: Performed By: #### H EMOGC #### [facility] [place] (DEFAULT) [address] [place] [address] Mean Cell Hgb Conc 31.7 g/dL Normal 31.4-35.9 [facility] Comment on above: Performed By: #### H EMOGC #### [facility] [place] (DEFAULT) [address] [place] [address]285 Platelet mean volume (Bld) [Entitic vol] 11.4 fL Normal 8.5-12.2 [facility] Comment on above: Performed By: #### H EMOGC #### [facility] [place] (DEFAULT) [address] [place] [address]722 Platelets (Bld) [#/Vol] 241 10*3/uL Normal 150-393 [facility] Comment on above: Performed By: #### H EMOGC #### [facility] [place] (DEFAULT) [address] [place] [address] 91193 RBC (Bld) [#/Vol] 4.82 10*6/uL Normal 3.91-5.04 [facility] Comment on above: Performed By: #### H EMO #### [facility] [place] (DEFAULT) [address] [place] [address] 35760 RBC Distribution 13.6 % Normal 10.8-14.9 [facility] Comment on above: Performed By: #### H EMOGC #### [facility] [place] (DEFAULT) [address] [place] [address] 07949 WBC (Bld) [#/Vol] 14.32 10*3/uL High 3.99-11.19 [facility] Comment on above: Performed By: #### H EMOGC #### [facility] [place] (DEFAULT) [address] [place] [address]67 CHEM 7 (LYTES,BUN,CREA,GLUC) on 08-12-2024 Anion gap [Moles/Vol] 15 mmol/L 7 - 17 mmol/L [facility] Chloride [Moles/Vol] 104 mmol/L 98 - 10 8 mmol/L [facility] CO2 [Moles/Vol] 27 mmol/L 21 - 31 mmol/L [facility] Creatinine [Mass/Vol] 1.36 mg/dL High 0.50 - 1.20 mg/dL [facility] eGFR, CKD-EPI, Female 40 Low - PINF [facility] Glucose [Mass/Vol] 126 mg/dL 70 - 179 mg/dL [facility] Interpretation and review of laboratory results Abnormal [facility] Osmolality Calc [Osmolality] 313 High [facility] Potassium [Moles/Vol] 4.5 mmol/L 3.5 - 5.0 mmol/L [facility] Sodium [Moles/Vol] 141 mmol/L 135 - 145 mmol/L [facility] Urea nitrogen [Mass/Vol] 56 mg/dL High 7 - 25 mg/dL [facility] Urea nitrogen/Creatinine [Mass ratio] 41 mg/mg [facility] Anion gap [Moles/Vol] 15 mmol/L Normal 7-17 [facility] Comment on above: Performed By: #### T YPEC #### [facility] [place] (DEFAULT) [address] [address] Chloride [Moles/Vol] 104 mmol/L Normal 98-108 [facility] Comment on above: Performed By: #### T YPEC #### [facility] [place] (DEFAULT) [address] [address] CO2 [Moles/Vol] 27 mmol/L Normal 21-31 [facility] Comment on above: Performed By: #### T YPEC #### [facility] [place] (DEFAULT) [address] [address] Creatinine [Mass/Vol] 1.36 mg/dL High 0.50-1.20 [facility] Comment on above: Performed By: #### T YPEC #### [facility] [place] (DEFAULT) [address] [address] GFR/1.73 sq M.predicted among non-blacks MDRD (S/P/Bld) [Vol rate/Area] 40 mL/min/{1.73_m2} Low >=60 [facility] Comment on above: Result Comment: Repo rted eGFR is based on the CKD-EPI 2020 equation using creatinine, age, and sex. Performed By: #### T YPEC #### [facility] [place] (DEFAULT) [address] [place] [address] Glucose [Mass/Vol] 126 mg/dL Normal Nonfastin -179 mg/dL; Fastin-99 [facility] Comment on above: Performed By: #### T YPEC #### [facility] [place] (DEFAULT) [address] [place] [address] 12051 Osmolality [Osmolality] 313 mosm/kg High 278-305 [facility] Comment on above: Performed By: #### T YPEC #### [facility] [place] (DEFAULT) [address] [place] [address] 49939 Potassium [Moles/Vol] 4.5 mmol/L Normal 3.5-5.0 [facility] Comment on above: Performed By: #### T YPEC #### [facility] [place] (DEFAULT) [address] [place] [address] 12137 Sodium [Moles/Vol] 141 mmol/L Normal 135-145 [facility] Comment on above: Performed By: #### T YPEC #### [facility] [place] (DEFAULT) [address] [place] [address]481 Urea nitrogen [Mass/Vol] 56 mg/dL High 7-25 [facility] Comment on above: Performed By: #### T YPEC #### [facility] [place] (DEFAULT) [address] [place] [address] 61731 Urea nitrogen/Creatinine [Mass ratio] 41 mg/mg Normal [facility] Comment on above: Performed By: #### T YPEC #### [facility] [place] (DEFAULT) [address] [place] [address] 26195 GLUCOSE POCon 08-12-2024 Glucose [Mass/Vol] 231 mg/dL High 70 - 179 mg/dL [facility] Interpretation and review of laboratory results Abnormal [facility] POC Sample Type CAPBL [facility] Glucose [Mass/Vol] 208 mg/dL High 70 - 179 mg/dL [facility] Interpretation and review of laboratory results Abnormal [facility] POC Sample Type [facility] Glucose [Mass/Vol] 160 mg/dL 70 - 179 mg/dL [facility] POC Sample Type [facility] Glucose [Mass/Vol] 107 mg/dL 70 - 179 mg/dL [facility] POC Sample Type CAPBL [facility] MAGNESIUMon 08-12-2024 Interpretation and review of laboratory results Normal [facility] Magnesium [Mass/Vol] 2.2 mg/dL 1.6 - 2 .6 mg/dL [facility] Magnesium [Mass/Vol] 2.2 mg/dL Normal 1.6-2.6 [facility] Comment on above: Performed By: #### T YPEC #### [facility] [place] (DEFAULT) [address] [place] [address] No Panel Informationon 08-12 [facility] SURG PATH REQUESTOrdered By: Renae Glez on 08-12-2024 Case Report [facility] Clinical History [id number] NVx sewDbWFNjlPVyU4GtfvznAY vlBW2sHR7tfJhzqPBkiCVfR YAjEyKse6cbq032cHBrs4sc VPJRcikxgJf8mFgmX13yx0W 9SjafO4bgBPNjPDbrXJXoED kaiBDwVRu9FFXbxHGnjzYlO iRnIUSwrRDxpSU7EMBxSZ0q guffVUxqSKduKSDwcvH5ETP qhNOrR7ZpZIImMG3pgeeiRW V3JXuwZCDvITJ9OvVyAJKtx 2Spdci3RqDgiHr4n3etGSPa LOIinHuae6urXNH3XSYilRC wU2losS2nJTEsUZ2xfbywg2 gqPCraUVhyEDAtoKE2rmF3X ZTxwJPkB0UboM8uEFKuIUHu tvZpiZtmkU0qDyKkQIufTcK jQh0ELLcLKxKnSVHsq9MmSH XjQUQMhXGanv6apYW5SEZQs 62lSzKmUJInsPFivVQWmMZ4 e9T3RsUxCv7zuLFldQZpkWK pbVW8p2K2BODhf8MeRTBcRc xwYXJ9 [facility] For Immediate Release to Patient's MyChart? Yes Yes [facility] Gross Description w3cwsEAsOKPop5mtKYKe bGF uZzEwMzNcZnRuYmpcdWMxIH tccnRmMVxlcGljMTExMDVcY C8ftEeycEk7hIvgDLKfjoQ5 eCUuXQtpk2ftPMG9v8xglhr aCPEeXWtnPa9roONsiAplPy HjRFVmDJk2gK50LLMhdZ4wm LTzQGemibXgCRBeO5CrRE4w NVfdjALfSMY5sAbsWHPkryo gHxU4VTcaDIDexeuwUSp6GK xdWVTdbLG9IPZapMMjN4DlU RLkVH7ueuj0QNT6XDcfUKFf KyJ5FPDhiFDlMKZvcNedBGg ai232TVK6EbObUNCfrxTktT bqfB2qPbQgPXSDdJVyr5YoI 1lgMK2bhDMbhcEsUMc1MRQl rY7fr93pEKVrx6Ngjkf4BLs xFgWvEBCkE20cuHTlpkGrXU dpdGggdGhlIHBhdGllbnQnc fEoVC8eZUFbGMHtA6Qpe1Xk d87ecjXvMlFlWzLudXRgROV yksmaEmClVQcbVeLjPga9TU IgVGhlIHNwZWNpbWVuIGlzI ADze1jinaX4SJRoFszkc8Ml cPHnTNUnckYopCLmKV2nGWI rcxUbf9KaRX9dZEJtpeJbRm SfH22adlVoEO8cTNHnfp3fk D0pVTKpIhVstDvqx0UcALFw ai0cSOZiSkX9sTB1soYdCpB nE79blR1rO3TmKCFxy0SyDI xeDA5tyV9rNoRzUATwWWIxy UBtZAVatoAGDNTpNYDqOQ4r rBu9LBtcLynIKVcdFkQjUAL 4YKKjto41BIR6LoJql0Y0FT NzBuYeRPAqAD6tqMuaIEKqT O9gURHnC4wieP0jorr4XqYe BAQgYbW3AGFdslA8Fgd6NUJ zPFrfm5ywf5WyMRKiVSc1sK oqMdUmUPAkl6csjpGiEjNbT AKeXMSvGAVjcXJwV601d5ft y6vsaxHrlEZ6MXVqBID4HYl vrbIeywH0HZgofCNuNqE5GE mwsxNfPUfzzvZnogKkCpc2A ZKvD783OBV7pRnuq4bnVYQ5 GNXhJAIyVcEtDf4jrZKiW62 1TGNgWGWARAFbtQb5IESldb UricKixCEQi750E780a4dsV UYoxkTpgXhLdwebn2vwU178 XHBhcGVydzEyMjQwXHBhcGV raZJ4APTfJM8utquxXZsuXP dhIWZjslB6HBPckHHlG4QrJ JYvHC7fszwgKOR2ZNvnHSMa SAH0GvWoTMHlk7Agrqw3CbN stz7lyg90NNL2w8RweLtsPP Y9GUG3DjRdJd3xjSQqLXNuW T5cQcBgtFRvIZPtvh30jTex YFkcthIevM7jEmHbDPJiiVA zBWElVK1xbBXaPXReqB1yre xjXHBnYnJkcmhlYWRccGdic jXnJp7yjImbIJQ5ECleS1dk nK0oKjI1KKdlK0ymgE9tTUq 8BYqoyKC3JDVbvF5bCG0atw xhw9afLXbfIMnkSTBtodI4t xF5ZXHpuWIqL7RogC6tFGEz OP5nimqxk1lmUSW3ALywXVJ oDCT9AkZpEMMao2Znkja1Yu Obs1FfrEStBXmoP08wi135J SZawcXzL1fixBBhcghomUOu hnawWEhimfS2UNNkQTExHZp uXGYxXGZzMjJcbGFuZzEwMz NcaGljaFxmMVxkYmNoXGYxX WwtW7lcJwNrXgYaEwXFjf4m f9EeKVCbhtL6oCzuOEIyt0T cw5GcLcCCZDQxB1OtBU1kuZ OpFPKojq57 [facility] Microscopic Description b5ogkBAgMBSlqVGe ZjIyMDA cBSQom1kzCDAnqXLxHbReWo NcZnRuYmpcdWMxXGRlZmYwe 9kze523zFNpd9enRBEnKaJ5 oMHeHPFqmEMzV337HNFgOYb yd4hpm9EiAZXgkBDps8Y9OA ZOblwrzWc1eQtdE39nr3W4K infM6dnHOBzXKCbS5ShTZ0f TFIyOxl0YFV5PLK4BOPvKNG yO3BuSW9fCBWszQJzQHs7l9 tljCndJXJlUKA8w8evCFnlt iLoLY6loc8pdDw4w2swsbYr TSUdSXVsoMSTOEIiI3TloWb aGs6rcHk1uDwuApcyDNT6Qx w5CY3fuc73vxj1vAypDDJus ygpKeK1DKgyRNAmzjbqGZo3 HRmrRPVepYP1YEGauNInB8L cIVAcRJ4ztfh1REH3RDxgVV XeIlZ6CDRdtJMiGQDryVswH Ztyw203BWQ5WrLjCO5gW2Tx x4L0nA1piKYfDORmzSJjCsX wAJSuge7ucRKyEBhvf4IxNM T8eoK7nVZotIOvRCZjFB11J zzgx5PrOqkxIAT1KBLdfhGp e1Brf4fgIpRmpkCmD2xpH3K yZHJoZWFkXHBnYnJkcmZvb3 Yba2CkkWKyuZn1b6qbMBKcG AJxqIppv4mzNLD6JPJmI7C4 xKEqc0gcHAuqOIUxxQY5plQ 8BIOcoGFbQ0HlqE5oNFJkYF 2vcvn0s3qzKBM3EPfrXCImZ gJ3vkP2MZTheBWvDPDwcNtw CKwop058TOJ6NlIeEYVfh7U wP6DifAaoH45vvJlsG74pGT LkvSdhdP8vsCaerM6zCzRjA nMyNFxxbFxwbGFpblxmMVxm ciZcJSmcxmifJPBhAWfzJ7f eOpHrTMBhlAcvBZgnl0RhBT ByFLEkPtAmWCAtnCJdv5Xon 1GwIyErlGZdfV0kbZzwxlD3 DEYlcDTsLw9lqVUaJeDynPW yfQ== [facility] Pathologic Diagnosis m3iiiJFkFWBddNWtIVU wNVx psfZoKPIpkRNpG3QrxgtmHF wxET0tJZ1elEntzCSnyAHuE NExQmMce4bkx511vEYgi2id TCTFxhvfaKx9i5blYIIHbU4 fz8b3iT15OCOuvD6hnRYqNZ lrerRdCKnjzyWhtoFrFfd7D LR1cHleBuanhKI3kCCmlZJ0 XFcji8JxfQrgqQecQKBvLCI mQWY8T5dxmYF4aKGijMeqlD PcGD2hd7duuYE2ecMqAWG5o UfsaWU4lHjguulhl6rdlSV3 dOR5UCbvxVG2AJzeDjWhL5d tNAQyyM2tW66hE4yoEORncG stAMfdNEEwwYP3TCU6VGVar 1xsZXZlbHRleHRcJzAxXCdi Ilf8b7omCVOsrG32bERqcgH 7fVxmMVxmczIwXGxpMzYwXG ZpMTgwfXtcbGlzdGxldmVsX QljsjHruvVsKoGhjAV0FSdn WkHmAzWvqAU6LUffEfWrqRZ 4RKpobNJduOC5XZseuGI8MZ d0KNb0VXgrVOiiExb7tXtyy DR1SKvefF7xKGTvR43iNiYi HeClVJ23VUdpd9VsZFLmxDe uAYMlnQ3eTwCvBCnoshLfke ZjbjIzXGxldmVsamMwXGxld fUdx1FrrpKdgJI2JMjekrZh jYV2qSouOZLkV9M1O763JLn qjfTeokHeUwMgveb8FPXbJO JwWlH0s3rxpQT5uVW4KTkrr SJ1TOjlWfRtT4oxZGFlkT3m C00aI7lbUEVpeOahPXlvHFX pfAP1TLJ2TQDfc8oxXTMwqH DisKRrAyXrHIqlHna1k4rrM VJquD48vXUihpZ5rFpvDQwi czIwfXtcbGlzdGxldmVsXGx ttsJznzMxGcEfgUC2WEajSg VpVyChySS9GMqeJkTmqSS0X VnpjROkcTK8AUwjcWJ4PAr5 DDd1YKzcZFsrEao5xYdupDD 8YNchkM3eOKBcU31oTdSqXh LcFQ93VJipb7RmDOGmjJcyL TFdiY5cFrPzEGiztcZazvOt bjIzXGxldmVsamMwXGxldmV cl3VfabXbfJH5FYybjmVixQ S7tJnlCHTmG1C3M664GLnfk oShdlUpGdGrcye2SCVuCFHm MuW9a9afoDT2uMW3GSpexRP 0WGtoDtOnY9txDHOzuW9jX6 4mG5vpXTSfyOdzABltDSZgc TX7QFZ5CGDpd8syLVAsoMGs oEPwJpAhYXqcPmf8w5eaYVX skY83pHNndwG3sDglZJihrk IwfXtcbGlzdGxldmVsXGxld nJzygXmVnPkiUZ7NCxfEdAl PyBfpUO3WHyjOnPsfOY8OOe hoKKnkMD1QCsacDO1SHp5GQ u2OPepEXioSnz1xLahrZQ2M XusfE1rPMGdZ27yHbFkInVt JT67KVwtd1BpLPKvgIonQIK ftA4vMaLuPAqwyaHnuaRsrz IzXGxldmVsamMwXGxldmVsc 7IywlHfpSA3WLnmruLiaFG4 fXjkLEFaN0L2P146KClusqN tbmCbDmRmemw3GRGzPYSxDa L6lM93DDdbtYngjR97BVHus GHdtOUkkHY8UNpznEvnjU66 PFYqoMDeGGdwk8DuTBWyGvK 5WaLnSZJeiLvjrU72CXZozI ZrT297teJsKOopRF91VYEsp GVydzEyMjQwXHBhcGVyaDE1 LDFiAT8yfjvfVHfnEMocVGV hwpY4HXGtrKTkV6BbXJOeNZ 4xalimCDM7SNrqWUQwAFH1S oNxHGHof5Lvkof5MxFysMCs DOgebRVxhnpwNFIfNsNeZ0Y iGRMtDZZ3x47pM5emWRAqn6 BzeTpccGFyXGxpMzYwXGZpM MazUEnukeX2LGajekCogKr5 tYVegUqdrG7pIocjpfBrSAP eCNFGo1JolREvsj6iyP2zYK NyudAKowSCIMpfZ27kBXO5Q CYwgJwhx7IqODjiOU02oOAg ZWRccGFyfQ== [facility] Professional Interpretation Performed at: p1myoICaJTYxdDYwFgWsHUY lUCYgr9ywQUZbzOIjGgDqBm NcZnRuYmpcdWMxXGRlZmYwe 8nsb207hHGlg7vlWYQoKbK4 rGPtVZQvuOXrC013QAMaMGv yg5cpj9RkKZVzyVIig2P5GA ZQxcjgpXa8vTjmV62ax6V0D npoF0vdKRBsBDAkE2InYW0x YOTeNvy4GHF5YLD8PEYcWSL iF2QuIQ4hSPKdpXSyJDm8e9 cvqYdeKICtJUN8d4axSGoax dXdUG2xex6egAx4h1wuxaHc CDJhMCTfvDGSASNeV6ObaPe qUu6uqOj3gOjbJbfiTCI9Rn q2OM8ddt42xvx8sPciHKFnz xkyRuQ7DOzhSWLvsyxoVNk2 GIrwIYIzxSL5QRGhbHIwC7I qDOSaPP4ywnk0ZVI6HEqtZQ XlTtV9OJYvwQVvSJDidRdnN Yesk384XYR3QqQmKE0eY0Jx b8C7oN6ogFZqXRTsvLGmSjB pGWYaxz7luBNpJSvtt6ZlXV A9dbD9nECaxOYbHJVoOX75C agrb4WvJigvGSA5DMDqrjNf q0Pny3slNlDbooZvB4qgS9S yZHJoZWFkXHBnYnJkcmZvb3 Mtc0WpjZAphRc1l5mpOGOnZ ANipKrbe1beWKA9UOKfC0C1 kCHro2jsWXgySBSzkKW1mvA 5IBRupNPhF1MheA1pCGMhKX 1piom9o3zyGJA8IIvfBVPyX bT0rcY0ZLHypVRfAYVxnUre XXtfy603KKH1TuOzXRMjj6W hI6MajZmpT41usVslO36qZH JeyMbkfF0arHngqE4oYiJaL nMyNFxwYXJkXHBsYWluXGYx XGZzMjJcbGFuZzEwMzNcaGl jaFxmMVxkYmNoXGYxXGxvY2 evSsTuVfMbUrDGE8CwN7PDS lPNHF3GCWhPHUlgS2EPPGOU NQOSVH4UH6JSXHqQVu4ADGQ BTyrlmETrXAIgICIKSYP9UR KgbXwrNGTwPDQxgsZLd8g3d VE8fpjhF5jxuzX3FpNfMKfz YXJ9 [facility] CBC,PLATELETSon 08-11-2024 Erythrocyte distribution width (RBC) [Ratio] 13.7 % 10.8 - 14.9 % [facility] Hematocrit (Bld) [Volume fraction] 43.2 % 34.9 - 44.3 % [facility] Hemoglobin (Bld) [Mass/Vol] 14 g/dL 11.4 - 15.2 g/dL [facility] Interpretation and review of laboratory results Abnormal [facility] MCH (RBC) [Entitic mass] 29.9 pg 25.9 - 33.9 pg [facility] MCHC (RBC) [Mass/Vol] 32.4 g/dL 31.4 - 35.9 g/dL [facility] MCV (RBC) [Entitic vol] 92.1 fL 79.6 - 97.7 fL [facility] Platelet mean volume (Bld) [Entitic vol] 11.5 fL 8.5 - 12.2 fL [facility] Platelets (Bld) [#/Vol] 240 10*3/uL 150 - 393 K/uL [facility] RBC (Bld) [#/Vol] 4.69 10*6/uL [facility] WBC (Bld) [#/Vol] 11.76 10*3/uL High 3.99 - 11.19 K/uL [facility] Hematocrit (Bld) [Volume fraction] 43.2 % Normal 34.9-44.3 [facility] Comment on above: Performed By: #### T YPEC #### [facility] (DEFAULT) [address] [address] Hemoglobin (Bld) [Mass/Vol] 14.0 g/dL Normal 11.4-15.2 [facility] Comment on above: Performed By: #### T YPEC #### [facility] (DEFAULT) [address] [place] [id number] MCV (RBC) [Entitic vol] 92.1 fL Normal 79.6-97.[address] [facility] Comment on above: Performed By: #### T YPEC #### [facility] (DEFAULT) [address] [place] [id number] Mean Cell Hgb 29.9 pg Normal 25.9-33.9 [facility] Comment on above: Performed By: #### T YPEC #### [facility] (DEFAULT) [address] [address] Mean Cell Hgb Conc 32.4 g/dL Normal 31.4-35.9 [facility] Comment on above: Performed By: #### T YPEC #### [facility] (DEFAULT) [address] [address] Platelet mean volume (Bld) [Entitic vol] 11.5 fL Normal 8.5-12.2 [facility] Comment on above: Performed By: #### T YPEC #### [facility] (DEFAULT) [address] [address] Platelets (Bld) [#/Vol] 240 10*3/uL Normal 150-393 [facility] Comment on above: Performed By: #### T YPEC #### [facility] (DEFAULT) [address] [address] RBC (Bld) [#/Vol] 4.69 10*6/uL Normal 3.91-5.04 [facility] Comment on above: Performed By: #### T YPEC #### [facility] (DEFAULT) [address] [address] RBC Distribution 13.7 % Normal 10.8-14.9 [facility] Comment on above: Performed By: #### T YPEC #### [facility] (DEFAULT) [address] [address] WBC (Bld) [#/Vol] 11.76 10*3/uL High 3.99-11.19 [facility] Comment on above: Performed By: #### T YPEC #### [facility] (DEFAULT) [address] [address] CHEM 7 (LYTES,BUN,CREA,GLUC) on 08-11-2024 Anion gap [Moles/Vol] 14 mmol/L 7 - 17 mmol/L [facility] Chloride [Moles/Vol] 103 mmol/L 98 - 10 8 mmol/L [facility] CO2 [Moles/Vol] 26 mmol/L 21 - 31 mmol/L [facility] Creatinine [Mass/Vol] 1.32 mg/dL High 0.50 - 1.20 mg/dL [facility] eGFR, CKD-EPI, Female 40 Low - PINF [facility] Glucose [Mass/Vol] 127 mg/dL 70 - 179 mg/dL [facility] Interpretation and review of laboratory results Abnormal [facility] Osmolality Calc [Osmolality] 306 High [facility] Potassium [Moles/Vol] 4.6 mmol/L 3.5 - 5.0 mmol/L [facility] Sodium [Moles/Vol] 138 mmol/L 135 - 145 mmol/L [facility] Urea nitrogen [Mass/Vol] 53 mg/dL High 7 - 25 mg/dL [facility] Urea nitrogen/Creatinine [Mass ratio] 40 mg/mg [facility] Anion gap [Moles/Vol] 14 mmol/L Normal 7-17 [facility] Comment on above: Performed By: #### [facility] #### [facility] (DEFAULT) [address] [address] Chloride [Moles/Vol] 103 mmol/L Normal 98-108 [facility] Comment on above: Performed By: #### [facility] #### [facility] (DEFAULT) [address] [place] [address] CO2 [Moles/Vol] 26 mmol/L Normal 21-31 [facility] Comment on above: Performed By: #### [facility] #### [facility] (DEFAULT) [address] [place] [address] Creatinine [Mass/Vol] 1.32 mg/dL High 0.50-1.20 [facility] Comment on above: Performed By: #### [facility] #### [facility] (DEFAULT) [address] [place] [address] GFR/1.73 sq M.predicted among non-blacks MDRD (S/P/Bld) [Vol rate/Area] 41 mL/min/{1.73_m2} Low >=60 [facility] Comment on above: Result Comment: Repo rted eGFR is based on the CKD-EPI 2020 equation using creatinine, age, and sex. Performed By: #### H EMOGC #### U [facility] (DEFAULT) [address] [place] [address] Glucose [Mass/Vol] 127 mg/dL Normal Nonfastin -179 mg/dL; Fastin-99 [facility] Comment on above: Performed By: #### H EMOGC #### U [facility] (DEFAULT) [address] [place] [address] Osmolality [Osmolality] 306 mosm/kg High 278-305 [facility] Comment on above: Performed By: #### H EMOGC #### [facility] (DEFAULT) [address] [place] [address] Potassium [Moles/Vol] 4.6 mmol/L Normal 3.5-5.0 [facility] Comment on above: Performed By: #### H EMOGC #### [facility] (DEFAULT) [address] [place] [address] Sodium [Moles/Vol] 138 mmol/L Normal 135-145 [facility] Comment on above: Performed By: #### H EMOGC #### [facility] (DEFAULT) [address] [place] [address] Urea nitrogen [Mass/Vol] 53 mg/dL High 7-25 [facility] Comment on above: Performed By: #### H EMOGC #### [facility] (DEFAULT) [address] [place] [address] Urea nitrogen/Creatinine [Mass ratio] 40 mg/mg Normal [facility] Comment on above: Performed By: #### H EMOGC #### [facility] (DEFAULT) [address] [place] [address] GLUCOSE POCon 08-11-2024 Glucose [Mass/Vol] 213 mg/dL High 70 - 179 mg/dL [facility] Interpretation and review of laboratory results Abnormal [facility] POC Sample Type [facility] Glucose [Mass/Vol] 255 mg/dL High 70 - 179 mg/dL [facility] Interpretation and review of laboratory results Abnormal [facility] POC Sample Type CAPBL [facility] Glucose [Mass/Vol] 190 mg/dL High 70 - 179 mg/dL [facility] Interpretation and review of laboratory results Abnormal [facility] POC Sample Type CAPBL [facility] Glucose [Mass/Vol] 205 mg/dL High 70 - 179 mg/dL [facility] Interpretation and review of laboratory results Abnormal [facility] POC Sample Type CAPBL [facility] MAGNESIUMon 08-11-2024 Interpretation and review of laboratory results Normal [facility] Magnesium [Mass/Vol] 1.9 mg/dL 1.6 - 2 .6 mg/dL [facility] Magnesium [Mass/Vol] 1.9 mg/dL Normal 1.6-2.6 [facility] Comment on above: Performed By: #### M , [facility] #### [facility] (DEFAULT) [address] [place] [address] No Panel Informationon 08-11 [facility] BLOOD CULTUREon 08-10-2024 Bacteria identified Cx Nom (Unsp spec) NO GROWTH DAY 5 OF 5 Normal [facility] Comment on above: Order [...] bottle. Performed By: #### T YPEC #### [facility] (DEFAULT) [address] [place] [address] Bacteria identified Cx Nom (Unsp spec) NO GROWTH DAY 5 OF 5 Normal [facility] Comment on above: Order [...] bottle. Performed By: #### B LDCULT #### [facility] (DEFAULT) [address] [address] CBC,PLATELETSon 08-10-2024 Erythrocyte distribution width (RBC) [Ratio] 13.3 % 10.8 - 14.9 % [facility] Hematocrit (Bld) [Volume fraction] 45.1 % High 34.9 - 44.3 % [facility] Hemoglobin (Bld) [Mass/Vol] 14.1 g/dL 11.4 - 15.2 g/dL [facility] Interpretation and review of laboratory results Abnormal [facility] MCH (RBC) [Entitic mass] 29.1 pg 25.9 - 33.9 pg [facility] MCHC (RBC) [Mass/Vol] 31.3 g/dL Low 31.4 - 35.9 g/dL [facility] MCV (RBC) [Entitic vol] 93 fL 79.6 - 97.7 fL [facility] Platelet mean volume (Bld) [Entitic vol] 11.4 fL 8.5 - 12.2 fL [facility] Platelets (Bld) [#/Vol] 216 10*3/uL 150 - 393 K/uL [facility] RBC (Bld) [#/Vol] 4.85 10*6/uL [facility] WBC (Bld) [#/Vol] 13.78 10*3/uL High 3.99 - 11.19 K/uL [facility] Hematocrit (Bld) [Volume fraction] 45.1 % High 34.9-44.3 [facility] Comment on above: Performed By: #### H EMO #### [facility] (DEFAULT) [address] [place] [address] Hemoglobin (Bld) [Mass/Vol] 14.1 g/dL Normal 11.4-15.2 [facility] Comment on above: Performed By: #### H EMO #### [facility] (DEFAULT) [address] [place] [address] MCV (RBC) [Entitic vol] 93.0 fL Normal 79.6-97.7 [facility] Comment on above: Performed By: #### H EMO #### [facility] (DEFAULT) [address] [place] [address] Mean Cell Hgb 29.1 pg Normal 25.9-33.9 [facility] Comment on above: Performed By: #### H EMO #### [facility] (DEFAULT) [address] [place] [address] Mean Cell Hgb Conc 31.3 g/dL Low 31.4-35.9 [facility] Comment on above: Performed By: #### H EMOGC #### [facility] (DEFAULT) [address] [place] [address] Platelet mean volume (Bld) [Entitic vol] 11.4 fL Normal 8.5-12.2 [facility] Comment on above: Performed By: #### H EMOGC #### [facility] (DEFAULT) [address] [place] [address] Platelets (Bld) [#/Vol] 216 10*3/uL Normal 150-393 [facility] Comment on above: Performed By: #### [facility] #### [facility] (DEFAULT) [address] [place] [address] RBC (Bld) [#/Vol] 4.85 10*6/uL Normal 3.91-5.04 [facility] Comment on above: Performed By: #### [facility] #### [facility] (DEFAULT) [address] [place] [address] RBC Distribution 13.3 % Normal 10.8-14.9 [facility] Comment on above: Performed By: #### [facility] #### [facility] (DEFAULT) [address] [place] [address] WBC (Bld) [#/Vol] 13.78 10*3/uL High 3.99-11.19 [facility] Comment on above: Performed By: #### [facility] #### [facility] (DEFAULT) [address] [place] [address] CHEM 7 (LYTES,BUN,CREA,GLUC) on 08-10-2024 Anion gap [Moles/Vol] 16 mmol/L 7 - 17 mmol/L [facility] Chloride [Moles/Vol] 103 mmol/L 98 - 10 8 mmol/L [facility] CO2 [Moles/Vol] 24 mmol/L 21 - 31 mmol/L [facility] Creatinine [Mass/Vol] 1.36 mg/dL High 0.50 - 1.20 mg/dL [facility] eGFR, CKD-EPI, Female 40 Low - PINF [facility] Glucose [Mass/Vol] 186 mg/dL High 70 - 179 mg/dL [facility] Interpretation and review of laboratory results Abnormal [facility] Osmolality Calc [Osmolality] 308 High [facility] Potassium [Moles/Vol] 4.9 mmol/L 3.5 - 5.0 mmol/L [facility] Sodium [Moles/Vol] 138 mmol/L 135 - 145 mmol/L [facility] Urea nitrogen [Mass/Vol] 47 mg/dL High 7 - 25 mg/dL [facility] Urea nitrogen/Creatinine [Mass ratio] 35 mg/mg [facility] Anion gap [Moles/Vol] 16 mmol/L Normal 7-17 [facility] Comment on above: Performed By: #### CAMERON PALACIOS ####[facility] (DEFAULT)[address] [place] [address] Chloride [Moles/Vol] 103 mmol/L Normal 98-108 [facility] Comment on above: Performed By: #### HEYDI PALACIOS7 ####[facility] (DEFAULT)[address] [place] [address] CO2 [Moles/Vol] 24 mmol/L Normal 21-31 [facility] Comment on above: Performed By: #### CAMERON PALACIOS ####[facility] (DEFAULT)[address] [place] [address] Creatinine [Mass/Vol] 1.36 mg/dL High 0.50-1.20 [facility] Comment on above: Performed By: #### CAMERON PALACIOS ####U [facility] (DEFAULT)[address] [place] [address] GFR/1.73 sq M.predicted among non-blacks MDRD (S/P/Bld) [Vol rate/Area] 40 mL/min/{1.73_m2} Low >=60 [facility] Comment on above: Result Comment: Repo rted eGFR is based on the CKD-EPI 2020 equation using creatinine, age, and sex. Performed By: #### CAMERON PALACIOS ####[facility] (DEFAULT)[address] [place] [address] Glucose [Mass/Vol] 186 mg/dL High Nonfastin -179 mg/dL; Fastin-99 [facility] Comment on above: Performed By: #### CAMERON PALACIOS ####[facility] (DEFAULT)[address] [place] [address] Osmolality [Osmolality] 308 mosm/kg High 278-305 [facility] Comment on above: Performed By: #### HEYDI PALACIOS7 ####U [facility] (DEFAULT)[address] [place] [address] Potassium [Moles/Vol] 4.9 mmol/L Normal 3.5-[facility].0 [facility] on above: Performed By: #### HEYDI PALACIOS7 ####[facility] (DEFAULT)[address] [place] [address] Sodium [Moles/Vol] 138 mmol/L Normal 135-145 [facility] Comment on above: Performed By: #### HEYDI PALACIOS7 ####[facility] (DEFAULT)[address] [place] [address] Urea nitrogen [Mass/Vol] 47 mg/dL High 7-25 [facility] Comment on above: Performed By: #### HEYDI PALACIOS7 ####[facility] (DEFAULT)[address] [place] [address] Urea nitrogen/Creatinine [Mass ratio] 35 mg/mg Normal [facility] Comment on above: Performed By: #### Jaiden NGUYEN CHM7 ####[facility] (DEFAULT)[address] [place] [address] GLUCOSE POCon 08-10-2024 Glucose [Mass/Vol] 144 mg/dL 70 - 179 mg/dL [facility] POC Sample Type CAPBL [facility] Glucose [Mass/Vol] 177 mg/dL 70 - 179 mg/dL [facility] POC Sample Type [facility] Glucose [Mass/Vol] 180 mg/dL High 70 - 179 mg/dL [facility] Interpretation and review of laboratory results Abnormal [facility] POC Sample Type CAPBL [facility] Glucose [Mass/Vol] 193 mg/dL High 70 - 179 mg/dL [facility] Interpretation and review of laboratory results Abnormal [facility] POC Sample Type [facility] Glucose [Mass/Vol] 200 mg/dL High 70 - 179 mg/dL [facility] Interpretation and review of laboratory results Abnormal [facility] POC Sample Type CAPBL [facility] Glucose [Mass/Vol] 198 mg/dL High 70 - 179 mg/dL [facility] Interpretation and review of laboratory results Abnormal [facility] POC Sample Type CAPBL [facility] MAGNESIUMon 08-10-2024 Interpretation and review of laboratory results Normal [facility] Magnesium [Mass/Vol] 1.8 mg/dL 1.6 - 2 .6 mg/dL [facility] Magnesium [Mass/Vol] 1.8 mg/dL Normal 1.6-2.6 [facility] Comment on above: Performed By: #### M , [facility] ####[facility] (DEFAULT)[address] [place] [address] No Panel Informationon 08-10 [facility] URINE CULTUREOrdered By: Franklin Carcamo on 08-10-2024 Bacteria identified Cx Nom (Unsp spec) Growth [facility] Bacteria identified Cx Nom (Unsp spec) KLEBSIELLA PNEUMONIAE Abnormal [facility] Interpretation and review of laboratory results Abnormal [facility] CBC,PLATELETSon 08-09-2024 Erythrocyte distribution width (RBC) [Ratio] 13.5 % 10.8 - 14.9 % [facility] Hematocrit (Bld) [Volume fraction] 44.4 % High 34.9 - 44.3 % [facility] Hemoglobin (Bld) [Mass/Vol] 14.1 g/dL 11.4 - 15.2 g/dL [facility] Interpretation and review of laboratory results Abnormal [facility] MCH (RBC) [Entitic mass] 29.4 pg 25.9 - 33.9 pg [facility] MCHC (RBC) [Mass/Vol] 31.8 g/dL 31.4 - 35.9 g/dL [facility] MCV (RBC) [Entitic vol] 92.7 fL 79.6 - 97.7 fL [facility] Platelet mean volume (Bld) [Entitic vol] 11.5 fL 8.5 - 12.2 fL [facility] Platelets (Bld) [#/Vol] 226 10*3/uL 150 - 393 K/uL [facility] RBC (Bld) [#/Vol] 4.79 10*6/uL [facility] WBC (Bld) [#/Vol] 12.37 10*3/uL High 3.99 - 11.19 K/uL [facility] Hematocrit (Bld) [Volume fraction] 44.4 % High 34.9-44.3 [facility] Comment on above: Performed By: #### [facility] #### [facility] (DEFAULT) [address] [place] [address] Hemoglobin (Bld) [Mass/Vol] 14.1 g/dL Normal 11.4-15.2 [facility] Comment on above: Performed By: #### [facility] #### [facility] (DEFAULT) [address] [place] [address] MCV (RBC) [Entitic vol] 92.7 fL Normal 79.6-97.[address] [facility] Comment on above: Performed By: #### [facility] #### [facility] (DEFAULT) [address] [place] [address] Mean Cell Hgb 29.4 pg Normal 25.9-33.9 [facility] Comment on above: Performed By: #### H EMOGC #### [facility] (DEFAULT) [address] [address] Mean Cell Hgb Conc 31.8 g/dL Normal 31.4-35.9 [facility] Comment on above: Performed By: #### H EMOGC #### [place] [facility] (DEFAULT) [address] [address] Platelet mean volume (Bld) [Entitic vol] 11.5 fL Normal 8.5-12.2 [facility] Comment on above: Performed By: #### H EMOGC #### [facility] (DEFAULT) [address] [address] Platelets (Bld) [#/Vol] 226 10*3/uL Normal 150-393 [facility] Comment on above: Performed By: #### H EMOGC #### [facility] (DEFAULT) [address] [address] RBC (Bld) [#/Vol] 4.79 10*6/uL Normal 3.91-5.04 [facility] Comment on above: Performed By: #### H EMOGC #### U [facility] (DEFAULT) [address] [address] RBC Distribution 13.5 % Normal 10.8-14.9 [facility] Comment on above: Performed By: #### H EMOGC #### [place] [facility] (DEFAULT) [address] [address] WBC (Bld) [#/Vol] 12.37 10*3/uL High 3.99-11.19 [facility] Comment on above: Performed By: #### H EMOGC #### [facility] (DEFAULT) [address] [address] CHEM 7 (LYTES,BUN,CREA,GLUC) on 08-09-2024 Anion gap [Moles/Vol] 14 mmol/L 7 - 17 mmol/L [facility] Chloride [Moles/Vol] 103 mmol/L 98 - 10 8 mmol/L [facility] CO2 [Moles/Vol] 26 mmol/L 21 - 31 mmol/L [facility] Creatinine [Mass/Vol] 1.35 mg/dL High 0.50 - 1.20 mg/dL [facility] eGFR, CKD-EPI, Female 40 Low - PINF [facility] Glucose [Mass/Vol] 182 mg/dL High 70 - 179 mg/dL [facility] Interpretation and review of laboratory results Abnormal [facility] Osmolality Calc [Osmolality] 305 [facility] Potassium [Moles/Vol] 4.9 mmol/L 3.5 - 5.0 mmol/L [facility] Sodium [Moles/Vol] 138 mmol/L 135 - 145 mmol/L [facility] Urea nitrogen [Mass/Vol] 38 mg/dL High 7 - 25 mg/dL [facility] Urea nitrogen/Creatinine [Mass ratio] 28 mg/mg [facility] Anion gap [Moles/Vol] 14 mmol/L Normal 7-17 [facility] Comment on above: Performed By: #### [facility] #### [facility] (DEFAULT) [address] [address] Chloride [Moles/Vol] 103 mmol/L Normal 98-108 [facility] Comment on above: Performed By: #### [facility] #### [facility] (DEFAULT) [address] [place] [address] CO2 [Moles/Vol] 26 mmol/L Normal 21-31 [facility] Comment on above: Performed By: #### [facility] #### [facility] (DEFAULT) [address] [place] [address] Creatinine [Mass/Vol] 1.35 mg/dL High 0.50-1.20 [facility] Comment on above: Performed By: #### [facility] #### [facility] (DEFAULT) [address] [place] [address] GFR/1.73 sq M.predicted among non-blacks MDRD (S/P/Bld) [Vol rate/Area] 40 mL/min/{1.73_m2} Low >=60 [facility] Comment on above: Result Comment: Repo rted eGFR is based on the CKD-EPI 2020 equation using creatinine, age, and sex. Performed By: #### H EMOGC #### [facility] (DEFAULT) [address] [place] [address] Glucose [Mass/Vol] 182 mg/dL High Nonfastin -179 mg/dL; Fastin-99 [facility] Comment on above: Performed By: #### H EMOGC #### [place] [facility] (DEFAULT) [address] [place] [address] Osmolality [Osmolality] 305 mosm/kg Normal 278-305 [facility] Comment on above: Performed By: #### H EMOGC #### [facility] (DEFAULT) [address] [place] [address] Potassium [Moles/Vol] 4.9 mmol/L Normal 3.5-5.0 [facility] Comment on above: Performed By: #### H EMOGC #### [facility] (DEFAULT) [address] [place] [address] Sodium [Moles/Vol] 138 mmol/L Normal 135-145 [facility] Comment on above: Performed By: #### H EMOGC #### [facility] (DEFAULT) [address] [place] [address] Urea nitrogen [Mass/Vol] 38 mg/dL High 7-25 [facility] Comment on above: Performed By: #### H EMOGC #### [facility] (DEFAULT) [address] [place] [address] Urea nitrogen/Creatinine [Mass ratio] 28 mg/mg Normal [facility] Comment on above: Performed By: #### H EMOGC #### [facility] (DEFAULT) [address] [place] [address] EXTRA MICROon 08-09-2024 [facility] GLUCOSE POCon 08-09-2024 Glucose [Mass/Vol] 186 mg/dL High 70 - 179 mg/dL [facility] Interpretation and review of laboratory results Abnormal [facility] POC Sample Type CAPBL [facility] Glucose [Mass/Vol] 255 mg/dL High 70 - 179 mg/dL [facility] Interpretation and review of laboratory results Abnormal [facility] POC Sample Type CAPBL [facility] Glucose [Mass/Vol] 235 mg/dL High 70 - 179 mg/dL [facility] Interpretation and review of laboratory results Abnormal [facility] POC Sample Type CAPBL [facility] Glucose [Mass/Vol] 167 mg/dL 70 - 179 mg/dL [facility] POC Sample Type CAPBL [facility] INTERVENTIONAL UPPER ENDOSCO PYon 08-09-2024 Body surface area Derived from formula 1.9 m2 [facility] LAB, [facility] Radiology Study observation (narrative) [facility] MAGNESIUMon 08-09-2024 Interpretation and review of laboratory results Normal [facility] Magnesium [Mass/Vol] 1.8 mg/dL 1.6 - 2 .6 mg/dL [facility] Magnesium [Mass/Vol] 1.8 mg/dL Normal 1.6-2.6 [facility] Comment on above: Performed By: #### [facility] #### [facility] (DEFAULT) [address] [place] [address] No Panel Informationon 08-09 [facility] PT,INR,PTTon 08-09-2024 aPTT Coag (PPP) [Time] 38.4 s High [facility] INR Coag (Bld) [Relative time] 1 {INR} 0.9 - 1.1 [facility] Interpretation and review of laboratory results Abnormal [facility] PT Coag (PPP) [Time] 13 s [facility] aPTT Coag (Bld) [Time] 38.4 s High 24.0-34.3 [facility] Comment on above: Performed By: #### B LDCULT #### [facility] (DEFAULT) [address] [place] [address] INR Coag (PPP) [Relative time] 1.0 {INR} Normal 0.9-1.1 [facility] Comment on above: Performed By: #### B LDCULT #### [facility] (DEFAULT) [address] [place] [address] PT Coag (PPP) [Time] 13.0 s Normal 11.9-14.2 [facility] Comment on above: Performed By: #### B LDCULT #### [facility] (DEFAULT) [address] [address] SURG PATH REQUESTon 08-10-19 Case Report Normal [facility] Comment on above: Result Comment: Surg ical Pathology Report Case: [id number] Authorizing Provider: Judson Keith DO Collected: 08/09/2024 10:07 AM Ordering Location: [facility] Received: 08/09/2024 12:13 PM Pathologist: Renae Glez MD Specimen: STOMACH, gastric, r/o HP Performed By: #### S URGP #### [facility] (DEFAULT) [address] [address] Clinical History R/O HP. Associated Diagnosis: None. Medical History: No medical history provided. Normal [facility] Comment on above: Performed By: #### S URGP #### [facility] (DEFAULT) [address] [place] [address] Gross Description Normal [facility] Comment on above: Result Comment: The specimen is received in one properly labeled container with the patient's name and accession number. A. The specimen is designated "gastric, r/o hp" and consists of five fragments of jackson-pink soft tissue, from 0.2 up to 0.6 cm in greatest dimension. TE 1 Lab Use Only: JobID [id number] Grosser for this case was: Sunshine Hidalgo Performed By: #### S URGP #### [facility] (DEFAULT) [address] [place] [address] Microscopic Description A microscopic examination was performed. [facility] Comment on above: Performed By: #### S URGP #### [facility] (DEFAULT) [address] [place] [address] Pathologic Diagnosis [facility] Comment on above: Result Comment: Anjelica echols, biopsy: Focal erosion No Helicobacter pylori identified at 1005 EDT Performed By: #### S URGP #### [facility] (DEFAULT) [address] [place] [address] Professional Interpretation Performed at: [facility] Comment on above: Result Comment: [facility] For Immediate Release to [facility]'s [facility] Yes [address] [place] [address] Performed By: #### S URGP #### [facility] (DEFAULT) [address] [id number] CBC,PLATELETSon 08-08-2024 Erythrocyte distribution width (RBC) [Ratio] 13.6 % 10.8 - 14.9 % [facility] Hematocrit (Bld) [Volume fraction] 45.7 % High 34.9 - 44.3 % [facility] Hemoglobin (Bld) [Mass/Vol] 14.4 g/dL 11.4 - 15.2 g/dL [facility] Interpretation and review of laboratory results Abnormal [facility] MCH (RBC) [Entitic mass] 29.4 pg 25.9 - 33.9 pg [facility] MCHC (RBC) [Mass/Vol] 31.5 g/dL 31.4 - 35.9 g/dL [facility] MCV (RBC) [Entitic vol] 93.3 fL 79.6 - 97.7 fL [facility] Platelet mean volume (Bld) [Entitic vol] 10.9 fL 8.5 - 12.2 fL [facility] Platelets (Bld) [#/Vol] 212 10*3/uL 150 - 393 K/uL [facility] RBC (Bld) [#/Vol] 4.9 10*6/uL [facility] WBC (Bld) [#/Vol] 10.39 10*3/uL 3.99 - 11.19 K/uL [facility] Hematocrit (Bld) [Volume fraction] 45.7 % High 34.9-44.3 [facility] Comment on above: Performed By: #### [facility] #### [facility] (DEFAULT) [address] [place] [address] Hemoglobin (Bld) [Mass/Vol] 14.4 g/dL Normal 11.4-15.2 [facility] Comment on above: Performed By: #### H EMO #### [facility] (DEFAULT) [address] [place] [address] MCV (RBC) [Entitic vol] 93.3 fL Normal 79.6-97.[address] [facility] Comment on above: Performed By: #### H EMO #### [facility] (DEFAULT) [address] [place] [address] Mean Cell Hgb 29.4 pg Normal 25.9-33.9 [facility] Comment on above: Performed By: #### H EMO #### [facility] (DEFAULT) [address] [place] [address] Mean Cell Hgb Conc 31.5 g/dL Normal 31.4-35.9 [facility] Comment on above: Performed By: #### H EMO #### [facility] (DEFAULT) [address] [place] [address] Platelet mean volume (Bld) [Entitic vol] 10.9 fL Normal 8.5-12.2 [facility] Comment on above: Performed By: #### H EMO #### [facility] (DEFAULT) [address] [place] [address] Platelets (Bld) [#/Vol] 212 10*3/uL Normal 150-393 [facility] Comment on above: Performed By: #### H EMOGC #### [facility] (DEFAULT) [address] [place] [address] RBC (Bld) [#/Vol] 4.90 10*6/uL Normal 3.91-5.04 [facility] Comment on above: Performed By: #### H EMO #### [facility] (DEFAULT) [address] [place] [address] RBC Distribution 13.6 % Normal 10.8-14.9 [facility] Comment on above: Performed By: #### H EMOGC #### [facility] (DEFAULT) [address] [place] [address] WBC (Bld) [#/Vol] 10.39 10*3/uL Normal 3.99-11.19 [facility] Comment on above: Performed By: #### H EMOGC #### [facility] (DEFAULT) [address] [place] [address] CHEM 7 (LYTES,BUN,CREA,GLUC) on 08-08-2024 Anion gap [Moles/Vol] 15 mmol/L 7 - 17 mmol/L [facility] Chloride [Moles/Vol] 104 mmol/L 98 - 10 8 mmol/L [facility] CO2 [Moles/Vol] 25 mmol/L 21 - 31 mmol/L [facility] Creatinine [Mass/Vol] 1.15 mg/dL 0.50 - 1.20 mg/dL [facility] eGFR, CKD-EPI, Female 48 Low - PINF [facility] Glucose [Mass/Vol] 111 mg/dL 70 - 179 mg/dL [facility] Interpretation and review of laboratory results Abnormal [facility] Osmolality Calc [Osmolality] 302 [facility] Potassium [Moles/Vol] 4.3 mmol/L 3.5 - 5.0 mmol/L [facility] Sodium [Moles/Vol] 140 mmol/L 135 - 145 mmol/L [facility] Urea nitrogen [Mass/Vol] 35 mg/dL High 7 - 25 mg/dL [facility] Urea nitrogen/Creatinine [Mass ratio] 30 mg/mg [facility] Anion gap [Moles/Vol] 15 mmol/L Normal 7-17 [facility] Comment on above: Performed By: #### HEYDI PALACIOS7 ####[facility] (DEFAULT)[address] [place] [address] Chloride [Moles/Vol] 104 mmol/L Normal 98-108 [facility] Comment on above: Performed By: #### CAMERON PALACIOS ####[facility] (DEFAULT)[address] [place] [address] CO2 [Moles/Vol] 25 mmol/L Normal 21-31 [facility] Comment on above: Performed By: #### HEYDI PALACIOS7 ####[facility] (DEFAULT)[address] [place] [address] Creatinine [Mass/Vol] 1.15 mg/dL Normal 0.50-1.20 [facility] Comment on above: Performed By: #### HEYDI PALACIOS7 ####[facility] (DEFAULT)[address] [place] [address] GFR/1.73 sq M.predicted among non-blacks MDRD (S/P/Bld) [Vol rate/Area] 48 mL/min/{1.73_m2} Low >=60 [facility] Comment on above: Result Comment: Repo rted eGFR is based on the CKD-EPI 2020 equation using creatinine, age, and sex. Performed By: #### HEYDI PALACIOS7 ####[facility] (DEFAULT)[address] [place] [address] Glucose [Mass/Vol] 111 mg/dL Normal Nonfastin -179 mg/dL; Fastin-99 [facility] Comment on above: Performed By: #### HEYDI PALACIOS7 ####[facility] (DEFAULT)[address] [place] [address] Osmolality [Osmolality] 302 mosm/kg Normal 278-305 [facility] Comment on above: Performed By: #### HEYDI PALACIOS7 ####[place] [facility] (DEFAULT)[address] [place] [address] Potassium [Moles/Vol] 4.3 mmol/L Normal 3.5-5.0 [facility] Comment on above: Performed By: #### CAMERON PALACIOS ####[facility] (DEFAULT)[address] [place] [address] Sodium [Moles/Vol] 140 mmol/L Normal 135-145 [facility] Comment on above: Performed By: #### Jaiden NGUYEN CHM7 ####[facility] (DEFAULT)[address] [place] [address] Urea nitrogen [Mass/Vol] 35 mg/dL High 7-25 [facility] Comment on above: Performed By: #### HEYDI PALACIOS7 ####[facility] (DEFAULT)[address] [place] [address] Urea nitrogen/Creatinine [Mass ratio] 30 mg/mg Normal [facility] Comment on above: Performed By: #### Jaiden NGUYEN CHJaiden7 ####[facility] (DEFAULT)[address] [place] [address] CT HEAD WITHOUT CONTRASTon 0 3-27-2025 CT HEAD WITHOUT CONTRAST EXAM: CT HEAD [...] have reviewed and approved this report. Normal [facility] CT Head WO contraston 2024 RADIOLOGY RADIOLOGY [facility] Radiology Study observation (narrative) [facility] GLUCOSE POCon 08-08-2024 Glucose [Mass/Vol] 150 mg/dL 70 - 179 mg/dL [facility] POC Sample Type CAPBL [facility] Glucose [Mass/Vol] 148 mg/dL 70 - 179 mg/dL [facility] POC Sample Type CAPBL [facility] Glucose [Mass/Vol] 192 mg/dL High 70 - 179 mg/dL [facility] Interpretation and review of laboratory results Abnormal [facility] POC Sample Type [facility] Glucose [Mass/Vol] 198 mg/dL High 70 - 179 mg/dL [facility] Interpretation and review of laboratory results Abnormal [facility] POC Sample Type CAPBL [facility] Glucose [Mass/Vol] 186 mg/dL High 70 - 179 mg/dL [facility] Interpretation and review of laboratory results Abnormal [facility] POC Sample Type CAPBL [facility] MAGNESIUMon 08-08-2024 Interpretation and review of laboratory results Normal [facility] Magnesium [Mass/Vol] 1.7 mg/dL 1.6 - 2 .6 mg/dL [facility] Magnesium [Mass/Vol] 1.7 mg/dL Normal 1.6-2.6 [facility] Comment on above: Performed By: #### M [facility] ####[facility] (DEFAULT)[address] [place] [address] No Panel Informationon 08-08 [facility] URINALYSIS REFLEX TO CULTURE PERFORMABLEOrdered By: Danya Yates on 08-08-2024 Appearance (U) Cloudy Abnormal Clear [facility] Bacteria LM Ql (Urine sed) PRESENT Abnormal ABSENT [facility] Color (U) Yellow Yellow [facility] Epithelial cells.squamous LM Ql (Urine sed) 0-2/hpf 0-2/hpf, 3-5/hpf = 1+ [facility] Glucose Test strip (U) [Mass/Vol] Negative Negative [facility] Interpretation and review of laboratory results Abnormal [facility] Ketones (U) [Mass/Vol] Trace Abnormal Negative [facility] Leukocyte esterase Test strip Ql (U) Large Abnormal Negative [facility] Nitrite Ql (U) Positive Abnormal Negative [facility] pH (U) 7.0 [pH] 5.0 - 7.0 [facility] Protein (U) [Mass/Vol] Trace Abnormal Negative OS [facility] RBC (U) [#/Vol] Trace Abnormal Negative [facility] RBC LM.HPF (Urine sed) [#/Area] 6-10 Abnormal [facility] Specific gravity (U) [Rel density] 1.023 1.001 - 1.035 [facility] Urobilinogen (U) [Mass/Vol] 1.0 E.U./dL 0.2 E.U/dL, 1.0 E.U/dL [facility] WBC LM.HPF (Urine sed) [#/Area] /[HPF] Abnormal [facility] URINALYSIS REFLEX TO CULTURE PERFORMABLEon 08-08-2024 Appearance (U) Cloudy Abnormal Clear [facility] Comment on above: Order Comment: For i ndwelling catheters, specimen collection is acceptable on catheter day 1 and 2 only. ? Performed By: #### T YPEC #### [facility] (DEFAULT) [address] [address] Bacteria PRESENT Abnormal ABSENT [facility] Comment on above: Order Comment: For i ndwelling catheters, specimen collection is acceptable on catheter day 1 and 2 only. ? Performed By: #### T YPEC #### [facility] (DEFAULT) [address] [address] Blood Urine Trace Abnormal Negative [facility] Comment on above: Order Comment: For i ndwelling catheters, specimen collection is acceptable on catheter day 1 and 2 only. ? Performed By: #### T YPEC #### [facility] (DEFAULT) [address] [address] Color (U) Yellow Normal Yellow [facility] Comment on above: Order Comment: For i ndwelling catheters, specimen collection is acceptable on catheter day 1 and 2 only. ? Performed By: #### T YPEC #### [facility] (DEFAULT) [address] [address] Glucose Ql (U) Negative Normal Negative [facility] Comment on above: Order Comment: For i ndwelling catheters, specimen collection is acceptable on catheter day 1 and 2 only. ? Performed By: #### T YPEC #### [facility] (DEFAULT) [address] [place] [address] Ketones Ql (U) Trace Abnormal Negative [facility] Comment on above: Order Comment: For i ndwelling catheters, specimen collection is acceptable on catheter day 1 and 2 only. ? Performed By: #### T YPEC #### [facility] (DEFAULT) [address] [address] Leukocyte esterase Test strip Ql (U) Large Abnormal Negative [facility] Comment on above: Order Comment: For i ndwelling catheters, specimen collection is acceptable on catheter day 1 and 2 only. ? Performed By: #### T YPEC #### [facility] (DEFAULT) [address] [address] Nitrites Urine Positive Abnormal Negative [facility] Comment on above: Order Comment: For i ndwelling catheters, specimen collection is acceptable on catheter day 1 and 2 only. ? Performed By: #### T YPEC #### [facility] (DEFAULT) [address] [address] pH (U) 7.0 [pH] Normal 5.0-7.0 [facility] Comment on above: Order Comment: For i ndwelling catheters, specimen collection is acceptable on catheter day 1 and 2 only. ? Performed By: #### T YPEC #### [facility] (DEFAULT) [address] [address] Protein Urine Trace Abnormal Negative [facility] Comment on above: Order Comment: For i ndwelling catheters, specimen collection is acceptable on catheter day 1 and 2 only. ? Performed By: #### T YPEC #### [facility] (DEFAULT) [address] [address] RBC Urine 6-10 Abnormal 0-2 [facility] Comment on above: Order Comment: For i ndwelling catheters, specimen collection is acceptable on catheter day 1 and 2 only. ? Performed By: #### T YPEC #### [facility] (DEFAULT) [address] [address] Specific [place] Urine 1.023 Normal 1.001-1.[address] [facility] Comment on above: Order Comment: For i ndwelling catheters, specimen collection is acceptable on catheter day 1 and 2 only. ? Performed By: #### T YPEC #### [facility] (DEFAULT) [address] [address] Squamous/Epithelial Cells, Urine 0-2/hpf Normal 0-2/hpf, 3-5/hpf = 1+ [facility] Comment on above: Order Comment: For i ndwelling catheters, specimen collection is acceptable on catheter day 1 and 2 only. ? Performed By: #### T YPEC #### [facility] (DEFAULT) [address] [address] Urobilinogen Urine 1.0 E.U./dL Normal 0.2 E.U/d L, 1.0 E.U/dL [facility] Comment on above: Order Comment: For i ndwelling catheters, specimen collection is acceptable on catheter day 1 and 2 only. ? Performed By: #### T YPEC #### [facility] (DEFAULT) [address] [address] WBC LM.HPF (Urine sed) [#/Area] /[HPF] Abnormal 0 - 5 [facility] Comment on above: Order Comment: For i ndwelling catheters, specimen collection is acceptable on catheter day 1 and 2 only. ? Performed By: #### T YPEC #### [facility] (DEFAULT) [address] [address] URINE CULTUREon 08-08-2024 Amikacin [Susceptibility] <= Invalid Interpretation Code [facility] Comment on above: Order [...] ? Performed By: #### T YPEC #### [facility] (DEFAULT) [address] [address] Ampicillin [Susceptibility] >=32 Resistant [facility] Comment on above: Order [...] ? Performed By: #### T YPEC #### [facility] (DEFAULT) [address] [place] [address] Ampicillin+Sulbactam [Susceptibility] >=32 Resistant [facility] Comment on above: Order [...] ? Performed By: #### T YPEC #### [facility] (DEFAULT) [address] [address] ceFAZolin [Susceptibility] >= Resistant [facility] Comment on above: Order [...] Performed By: #### T YPEC #### [facility] (DEFAULT) [address] [address] Cefepime [Susceptibility] <= Invalid Interpretation Code [facility] Comment on above: Order [...] Performed By: #### T YPEC #### [facility] (DEFAULT) [address] [address] cefTRIAXone [Susceptibility] <= Invalid Interpretation Code [facility] Comment on above: Order [...] ? Performed By: #### T YPEC #### [facility] (DEFAULT) [address] [address] Ciprofloxacin [Susceptibility] >= Resistant [facility] Comment on above: Order [...] ? Performed By: #### T YPEC #### [facility] (DEFAULT) [address] [address] Ertapenem [Susceptibility] <= Invalid Interpretation Code [facility] Comment on above: Order [...] ? Performed By: #### T YPEC #### [facility] (DEFAULT) [address] [address] Gentamicin [Susceptibility] <= Invalid Interpretation Code [facility] Comment on above: Order [...] ? Performed By: #### T YPEC #### [facility] (DEFAULT) [address] [address] levoFLOXacin [Susceptibility] >= Resistant [facility] Comment on above: Order [...] Performed By: #### T YPEC #### [facility] (DEFAULT) [address] [address] Nitrofurantoin [Susceptibility] 128 ug/mL Resistant [facility] Comment on above: Order [...] ? Performed By: #### T YPEC #### [facility] (DEFAULT) [address] [address] Piperacillin+Tazobactam [Susceptibility] 8 ug/mL Invalid Interpretation Code [facility] Comment on above: Order [...] ? Performed By: #### T YPEC #### [facility] (DEFAULT) [address] [place] [address] Trimethoprim+Sulfametho xazole [Susceptibility] <= Invalid Interpretation Code [facility] Comment on above: Order [...] ? Performed By: #### T YPEC #### [facility] (DEFAULT) [address] [place] [address] CBC,PLATELETSon 08-07-2024 Erythrocyte distribution width (RBC) [Ratio] 13.9 % 10.8 - 14.9 % [facility] Hematocrit (Bld) [Volume fraction] 43.1 % 34.9 - 44.3 % [facility] Hemoglobin (Bld) [Mass/Vol] 13.7 g/dL 11.4 - 15.2 g/dL [facility] Interpretation and review of laboratory results Abnormal [facility] MCH (RBC) [Entitic mass] 29.6 pg 25.9 - 33.9 pg [facility] MCHC (RBC) [Mass/Vol] 31.8 g/dL 31.4 - 35.9 g/dL [facility] MCV (RBC) [Entitic vol] 93.1 fL 79.6 - 97.7 fL [facility] Platelet mean volume (Bld) [Entitic vol] 11.1 fL 8.5 - 12.2 fL [facility] Platelets (Bld) [#/Vol] 214 10*3/uL 150 - 393 K/uL [facility] RBC (Bld) [#/Vol] 4.63 10*6/uL [facility] WBC (Bld) [#/Vol] 11.3 10*3/uL High 3.99 - 11.19 K/uL [facility] CHEM 7 (LYTES,BUN,CREA,GLUC) on 08-07-2024 Anion gap [Moles/Vol] 13 mmol/L 7 - 17 mmol/L [facility] Chloride [Moles/Vol] 105 mmol/L 98 - 10 8 mmol/L [facility] CO2 [Moles/Vol] 28 mmol/L 21 - 31 mmol/L [facility] Creatinine [Mass/Vol] 1.19 mg/dL 0.50 - 1.20 mg/dL [facility] eGFR, CKD-EPI, Female 47 Low - PINF [facility] Glucose [Mass/Vol] 90 mg/dL 70 - 179 mg/dL [facility] Interpretation and review of laboratory results Abnormal [facility] Osmolality Calc [Osmolality] 304 [facility] Potassium [Moles/Vol] 4.2 mmol/L 3.5 - 5.0 mmol/L [facility] Sodium [Moles/Vol] 142 mmol/L 135 - 145 mmol/L [facility] Urea nitrogen [Mass/Vol] 34 mg/dL High 7 - 25 mg/dL [facility] Urea nitrogen/Creatinine [Mass ratio] 29 mg/mg [facility] GLUCOSE POCon 08-07-2024 Glucose [Mass/Vol] 185 mg/dL High 70 - 179 mg/dL [facility] Interpretation and review of laboratory results Abnormal [facility] POC Sample Type CAPBL [facility] Glucose [Mass/Vol] 106 mg/dL 70 - 179 mg/dL [facility] POC Sample Type CAPBL [facility] Glucose [Mass/Vol] 104 mg/dL 70 - 179 mg/dL [facility] POC Sample Type CAPBL [facility] MAGNESIUMon 08-07-2024 Interpretation and review of laboratory results Normal [facility] Magnesium [Mass/Vol] 1.8 mg/dL 1.6 - 2 .6 mg/dL [facility] No Panel Informationon 08-07 [facility] CBC,PLATELETSon 08-06-2024 Hematocrit (Bld) [Volume fraction] 43.1 % Normal 34.9-44.3 [facility] Comment on above: Performed By: #### X M #### [facility] (DEFAULT) [address] [address] Hemoglobin (Bld) [Mass/Vol] 13.7 g/dL Normal 11.4-15.2 [facility] Comment on above: Performed By: #### X M #### [facility] (DEFAULT) [address] [address] MCV (RBC) [Entitic vol] 93.1 fL Normal 79.6-97.[address] [facility] Comment on above: Performed By: #### X M #### [facility] (DEFAULT) [address] [address] Mean Cell Hgb 29.6 pg Normal 25.9-33.9 [facility] Comment on above: Performed By: #### X M #### [facility] (DEFAULT) [address] [place] [address] Mean Cell Hgb Conc 31.8 g/dL Normal 31.4-35.9 [facility] Comment on above: Performed By: #### X M #### [facility] (DEFAULT) [address] [address] Platelet mean volume (Bld) [Entitic vol] 11.1 fL Normal 8.5-12.2 [facility] Comment on above: Performed By: #### X M #### [facility] (DEFAULT) [address] [place] [address] Platelets (Bld) [#/Vol] 214 10*3/uL Normal 150-393 [facility] Comment on above: Performed By: #### X M #### [facility] (DEFAULT) [address] [place] [address] RBC (Bld) [#/Vol] 4.63 10*6/uL Normal 3.91-5.04 [facility] Comment on above: Performed By: #### X M #### [facility] (DEFAULT) [address] [place] [address] RBC Distribution 13.9 % Normal 10.8-14.9 [facility] Comment on above: Performed By: #### X M #### [facility] (DEFAULT) [address] [place] [address] WBC (Bld) [#/Vol] 11.30 10*3/uL High 3.99-11.19 [facility] Comment on above: Performed By: #### X M #### [facility] (DEFAULT) [address] [place] [address] Erythrocyte distribution width (RBC) [Ratio] 13.9 % 10.8 - 14.9 % [facility] Hematocrit (Bld) [Volume fraction] 44 % 34.9 - 44.3 % [facility] Hemoglobin (Bld) [Mass/Vol] 13.9 g/dL 11.4 - 15.2 g/dL [facility] Interpretation and review of laboratory results Abnormal [facility] MCH (RBC) [Entitic mass] 29.1 pg 25.9 - 33.9 pg [facility] MCHC (RBC) [Mass/Vol] 31.6 g/dL 31.4 - 35.9 g/dL [facility] MCV (RBC) [Entitic vol] 92.2 fL 79.6 - 97.7 fL [facility] Platelet mean volume (Bld) [Entitic vol] 10.7 fL 8.5 - 12.2 fL [facility] Platelets (Bld) [#/Vol] 216 10*3/uL 150 - 393 K/uL [facility] RBC (Bld) [#/Vol] 4.77 10*6/uL [facility] WBC (Bld) [#/Vol] 12.14 10*3/uL High 3.99 - 11.19 K/uL [facility] CHEM 7 (LYTES,BUN,CREA,GLUC) on 08-06-2024 Anion gap [Moles/Vol] 13 mmol/L Normal 7-17 [facility] Comment on above: Performed By: #### HEYDI PALACIOS7 ####[facility] (DEFAULT)[address] [place] [address] Chloride [Moles/Vol] 105 mmol/L Normal 98-108 [facility] Comment on above: Performed By: #### CAMERON PALACIOS ####[facility] (DEFAULT)[address] [place] [address] CO2 [Moles/Vol] 28 mmol/L Normal 21-31 [facility] Comment on above: Performed By: #### HEYDI PALACIOS7 ####[facility] (DEFAULT)[address] [place] [address] Creatinine [Mass/Vol] 1.19 mg/dL Normal 0.50-1.20 [facility] Comment on above: Performed By: #### HEYDI PALACIOS7 ####[facility] (DEFAULT)[address] [place] [address] GFR/1.73 sq M.predicted among non-blacks MDRD (S/P/Bld) [Vol rate/Area] 47 mL/min/{1.73_m2} Low >=60 [facility] Comment on above: Result Comment: Repo rted eGFR is based on the CKD-EPI 2020 equation using creatinine, age, and sex. Performed By: #### CAMERON PALACIOS ####[facility] (DEFAULT)[address] [place] [address] Glucose [Mass/Vol] 90 mg/dL Normal Nonfastin -179 mg/dL; Fastin-99 [facility] Comment on above: Performed By: #### Jaiden NGUYEN CHM7 ####[facility] (DEFAULT)[address] [place] [address] Osmolality [Osmolality] 304 mosm/kg Normal 278-305 [facility] Comment on above: Performed By: #### Jaiden NGUYEN CHM7 ####U [facility] (DEFAULT)[address] [place] [address] Potassium [Moles/Vol] 4.2 mmol/L Normal 3.5-5.0 [facility] Comment on above: Performed By: #### Jaiden NGUYEN CHJaiden7 ####U [facility] (DEFAULT)[address] [place] [address] Sodium [Moles/Vol] 142 mmol/L Normal 135-145 [facility] Comment on above: Performed By: #### HEYDI PALACIOS7 ####[facility] (DEFAULT)[address] [place] [address] Urea nitrogen [Mass/Vol] 34 mg/dL High 7-25 [facility] Comment on above: Performed By: #### Jaiden NGUYEN CHM7 ####[facility] (DEFAULT)[address] [place] [address] Urea nitrogen/Creatinine [Mass ratio] 29 mg/mg Normal [facility] Comment on above: Performed By: #### Jaiden NGUYEN CHM7 ####[facility] (DEFAULT)[address] [place] [address] Anion gap [Moles/Vol] 14 mmol/L 7 - 17 mmol/L [facility] Chloride [Moles/Vol] 107 mmol/L 98 - 10 8 mmol/L [facility] CO2 [Moles/Vol] 27 mmol/L 21 - 31 [facility]/L [facility] Creatinine [Mass/Vol] 1.19 mg/dL 0.50 - 1.20 mg/dL [facility] eGFR, CKD-EPI, Female 47 Low - PINF [facility] Glucose [Mass/Vol] 88 mg/dL 70 - 179 mg/dL [facility] Interpretation and review of laboratory results Abnormal [facility] Osmolality Calc [Osmolality] 307 High [facility] Potassium [Moles/Vol] 3.9 mmol/L 3.5 - 5.0 mmol/L [facility] Sodium [Moles/Vol] 144 mmol/L 135 - 145 mmol/L [facility] Urea nitrogen [Mass/Vol] 34 mg/dL High 7 - 25 mg/dL [facility] Urea nitrogen/Creatinine [Mass ratio] 29 mg/mg [facility] GLUCOSE POCon 08-06-2024 Glucose [Mass/Vol] 166 mg/dL 70 - 179 mg/dL [facility] Glucose [Mass/Vol] 106 mg/dL 70 - 179 mg/dL [facility] Glucose [Mass/Vol] 100 mg/dL 70 - 179 mg/dL [facility] POC Sample Type [facility] Glucose [Mass/Vol] 219 mg/dL High 70 - 179 mg/dL [facility] Interpretation and review of laboratory results Abnormal [facility] Glucose [Mass/Vol] 249 mg/dL High 70 - 179 mg/dL [facility] Glucose [Mass/Vol] 178 mg/dL 70 - 179 mg/dL [facility] Glucose [Mass/Vol] 194 mg/dL High 70 - 179 mg/dL [facility] Glucose [Mass/Vol] 93 mg/dL 70 - 179 mg/dL [facility] POC Sample Type [facility] IONIZED CALCIUM, WHOLE BLOOD Ordered By: Zuleika Blunt on 08-06-2024 Calcium.ionized (Bld) [Moles/Vol] 4.72 mg/dL 4.60 - 5.30 mg/dL [facility] Interpretation and review of laboratory results Normal [facility] MAGNESIUMon 08-06-2024 Magnesium [Mass/Vol] 1.8 mg/dL Normal 1.6-2.6 [facility] Comment on above: Performed By: #### M HEYDI NGUYEN7 ####[facility] (DEFAULT)[address] [place] [address] Magnesium [Mass/Vol] 2.4 mg/dL 1.6 - 2 .6 mg/dL [facility] No Panel Informationon 08-06 POC Sample Type [facility] Interpretation and review of laboratory results Abnormal [facility] POC Sample Type [facility] Interpretation and review of laboratory results Normal [facility] PHOSPHATE, INORGANICon 08-06 Phosphate [Mass/Vol] 3.2 mg/dL 2.2 - 4 .6 mg/dL [facility] RF videography Hypopharynx a nd Esophagus Views W liquid and paste contrast PO during swallowingon 08-06-2024 RADIOLOGY RADIOLOGY [facility] Radiology Study observation (narrative) [facility] RF videography Hypopharynx a nd Esophagus Views W liquid and paste contrast PO during swallowingOrdered By: Gerry Resendez on 08-06-2024 [facility] Work Phone: SPEECH MODIFIED BARIUM SWALL OWon [...] for specific therapeutic recommendations, please see the dyeing machine feeder report of the speech pathologist. Examination performed by ARCADIO Nicole, under the direct supervision of Gerry Resendez M.D., who was immediately available on site during the examination. I personally viewed and interpreted these images and I have reviewed and approved this report. Normal [facility] CBC,PLATELETSon 08-05-2024 Hematocrit (Bld) [Volume fraction] 44.0 % Normal 34.9-44.3 [facility] Comment on above: Performed By: #### B LDCULT #### [facility] (DEFAULT) [address] [address] Hemoglobin (Bld) [Mass/Vol] 13.9 g/dL Normal 11.4-15.2 [facility] Comment on above: Performed By: #### B LDCULT #### U [facility] (DEFAULT) [address] [address] MCV (RBC) [Entitic vol] 92.2 fL Normal 79.6-97.[address] [facility] Comment on above: Performed By: #### B LDCULT #### [facility] (DEFAULT) [address] [address] Mean Cell Hgb 29.1 pg Normal 25.9-33.9 [facility] Comment on above: Performed By: #### B LDCULT #### [facility] (DEFAULT) [address] [place] [address] Mean Cell Hgb Conc 31.6 g/dL Normal 31.4-35.9 [facility] Comment on above: Performed By: #### B LDCULT #### [facility] (DEFAULT) [address] [place] [address] Platelet mean volume (Bld) [Entitic vol] 10.7 fL Normal 8.5-12.2 [facility] Comment on above: Performed By: #### B LDCULT #### [facility] (DEFAULT) [address] [place] [address] Platelets (Bld) [#/Vol] 216 10*3/uL Normal 150-393 [facility] Comment on above: Performed By: #### B LDCULT #### [facility] (DEFAULT) [address] [place] [address] RBC (Bld) [#/Vol] 4.77 10*6/uL Normal 3.91-5.04 [facility] Comment on above: Performed By: #### B LDCULT #### [facility] (DEFAULT) [address] [place] [address] RBC Distribution 13.9 % Normal 10.8-14.9 [facility] Comment on above: Performed By: #### B LDCULT #### [facility] (DEFAULT) [address] [place] [address] WBC (Bld) [#/Vol] 12.14 10*3/uL High 3.99-11.19 [facility] Comment on above: Performed By: #### B LDCULT #### [facility] (DEFAULT) [address] [place] [address] Erythrocyte distribution width (RBC) [Ratio] 13.9 % 10.8 - 14.9 % [facility] Hematocrit (Bld) [Volume fraction] 39.6 % 34.9 - 44.3 % [facility] Hemoglobin (Bld) [Mass/Vol] 12.6 g/dL 11.4 - 15.2 g/dL [facility] Interpretation and review of laboratory results Normal [facility] MCH (RBC) [Entitic mass] 29.3 pg 25.9 - 33.9 pg [facility] MCHC (RBC) [Mass/Vol] 31.8 g/dL 31.4 - 35.9 g/dL [facility] MCV (RBC) [Entitic vol] 92.1 fL 79.6 - 97.7 fL [facility] Platelet mean volume (Bld) [Entitic vol] 10.7 fL 8.5 - 12.2 fL [facility] Platelets (Bld) [#/Vol] 198 10*3/uL 150 - 393 K/uL [facility] RBC (Bld) [#/Vol] 4.3 10*6/uL [facility] WBC (Bld) [#/Vol] 10.61 10*3/uL 3.99 - 11.19 K/uL [facility] Hematocrit (Bld) [Volume fraction] 39.6 % Normal 34.9-44.3 [facility] Comment on above: Performed By: #### [facility] ####[facility] (DEFAULT)[address] [place] [address] Hemoglobin (Bld) [Mass/Vol] 12.6 g/dL Normal 11.4-15.2 [facility] Comment on above: Performed By: #### H EMO ####[facility] (DEFAULT)[address] [place] [address] MCV (RBC) [Entitic vol] 92.1 fL Normal 79.6-97.[address] [facility] Comment on above: Performed By: #### [facility] ####[facility] (DEFAULT)[address] [place] [address] Mean Cell Hgb 29.3 pg Normal 25.9-33.9 [facility] Comment on above: Performed By: #### H EMOGC ####[facility] (DEFAULT)[address] [place] [address] Mean Cell Hgb Conc 31.8 g/dL Normal 31.4-35.9 [facility] Comment on above: Performed By: #### H EMOGC ####[facility] (DEFAULT)[address] [place] [address] Platelet mean volume (Bld) [Entitic vol] 10.7 fL Normal 8.5-12.2 [facility] Comment on above: Performed By: #### H EMOGC ####[facility] (DEFAULT)[address] [place] [address] Platelets (Bld) [#/Vol] 198 10*3/uL Normal 150-393 [facility] Comment on above: Performed By: #### H EMO ####[facility] (DEFAULT)[address] [place] [address] RBC (Bld) [#/Vol] 4.30 10*6/uL Normal 3.91-5.04 [facility] Comment on above: Performed By: #### H EMOGC ####[facility] (DEFAULT)[address] [place] [address] RBC Distribution 13.9 % Normal 10.8-14.9 [facility] Comment on above: Performed By: #### H EMOGC ####[facility] (DEFAULT)[address] [place] [address] WBC (Bld) [#/Vol] 10.61 10*3/uL Normal 3.99-11.19 [facility] Comment on above: Performed By: #### H EMOGC ####[facility] (DEFAULT)[address] [facility] [place] [address] CHEM 7 (LYTES,BUN,CREA,GLUC) on 08-05-2024 Anion gap [Moles/Vol] 14 mmol/L Normal 7-17 [facility] Comment on above: Performed By: #### S URGP #### U [facility] (DEFAULT) [address] [place] [address] Chloride [Moles/Vol] 107 mmol/L Normal 98-108 [facility] Comment on above: Performed By: #### S URGP #### U [facility] (DEFAULT) [address] [place] [address] CO2 [Moles/Vol] 27 mmol/L Normal 21-31 [facility] Comment on above: Performed By: #### S URGP #### U [facility] (DEFAULT) [address] [place] [address] Creatinine [Mass/Vol] 1.19 mg/dL Normal 0.50-1.20 [facility] Comment on above: Performed By: #### S URGP #### U [facility] (DEFAULT) [address] [place] [address] GFR/1.73 sq M.predicted among non-blacks MDRD (S/P/Bld) [Vol rate/Area] 47 mL/min/{1.73_m2} Low >=60 [facility] Comment on above: Result Comment: Repo rted eGFR is based on the CKD-EPI 2020 equation using creatinine, age, and sex. Performed By: #### S URGP #### [facility] (DEFAULT) [address] [place] [address] Glucose [Mass/Vol] 88 mg/dL Normal Nonfastin -179 mg/dL; Fastin-99 [facility] Comment on above: Performed By: #### S URGP #### [facility] (DEFAULT) [address] [place] [address] Osmolality [Osmolality] 307 mosm/kg High 278-305 [facility] Comment on above: Performed By: #### S URGP #### [facility] (DEFAULT) [address] [place] [address] Potassium [Moles/Vol] 3.9 mmol/L Normal 3.5-5.0 [facility] Comment on above: Performed By: #### S URGP #### [facility] (DEFAULT) [address] [place] [address] Sodium [Moles/Vol] 144 mmol/L Normal 135-145 [facility] Comment on above: Performed By: #### S URGP #### U [facility] (DEFAULT) [address] [place] [address] Urea nitrogen [Mass/Vol] 34 mg/dL High 7-25 [facility] Comment on above: Performed By: #### S URGP #### U [facility] (DEFAULT) [address] [place] [address] Urea nitrogen/Creatinine [Mass ratio] 29 mg/mg Normal [facility] Comment on above: Performed By: #### S URGP #### [facility] (DEFAULT) [address] [place] [address] Anion gap [Moles/Vol] 14 mmol/L 7 - 17 mmol/L [facility] Chloride [Moles/Vol] 108 mmol/L 98 - 10 8 mmol/L [facility] CO2 [Moles/Vol] 25 mmol/L 21 - 31 mmol/L [facility] Creatinine [Mass/Vol] 1.45 mg/dL High 0.50 - 1.20 mg/dL [facility] eGFR, CKD-EPI, Female 37 Low - PINF [facility] Glucose [Mass/Vol] 242 mg/dL High 70 - 179 mg/dL [facility] Interpretation and review of laboratory results Abnormal [facility] Osmolality Calc [Osmolality] 315 High [facility] Potassium [Moles/Vol] 3.8 mmol/L 3.5 - 5.0 mmol/L [facility] Sodium [Moles/Vol] 143 mmol/L 135 - 145 mmol/L [facility] Urea nitrogen [Mass/Vol] 35 mg/dL High 7 - 25 mg/dL [facility] Urea nitrogen/Creatinine [Mass ratio] 24 mg/mg [facility] Anion gap [Moles/Vol] 14 mmol/L Normal 7-17 [facility] Comment on above: Performed By: #### X M #### [facility] (DEFAULT) [address] [place] [address] Chloride [Moles/Vol] 108 mmol/L Normal 98-108 [facility] Comment on above: Performed By: #### X M #### U [facility] (DEFAULT) [address] [place] [address] CO2 [Moles/Vol] 25 mmol/L Normal 21-31 [facility] Comment on above: Performed By: #### X M #### U [facility] (DEFAULT) [address] [place] [address] Creatinine [Mass/Vol] 1.45 mg/dL High 0.50-1.20 [facility] Comment on above: Performed By: #### X M #### U [facility] (DEFAULT) [address] [place] [address] GFR/1.73 sq M.predicted among non-blacks MDRD (S/P/Bld) [Vol rate/Area] 37 mL/min/{1.73_m2} Low >=60 [facility] Comment on above: Result Comment: Repo rted eGFR is based on the CKD-EPI 2020 equation using creatinine, age, and sex. Performed By: #### X M #### [facility] (DEFAULT) [address] [place] [address] Glucose [Mass/Vol] 242 mg/dL High Nonfastin -179 mg/dL; Fastin-99 [facility] Comment on above: Performed By: #### X M #### [facility] (DEFAULT) [address] [place] [address] Osmolality [Osmolality] 315 mosm/kg High 278-305 [facility] Comment on above: Performed By: #### X M #### [facility] (DEFAULT) [address] [place] [address] Potassium [Moles/Vol] 3.8 mmol/L Normal 3.5-5.0 [facility] Comment on above: Performed By: #### X M #### [facility] (DEFAULT) [address] [place] [address] Sodium [Moles/Vol] 143 mmol/L Normal 135-145 [facility] Comment on above: Performed By: #### X M #### [facility] (DEFAULT) [address] [place] [address] Urea nitrogen [Mass/Vol] 35 mg/dL High 7-25 [facility] Comment on above: Performed By: #### X M #### [facility] (DEFAULT) [address] [place] [address] Urea nitrogen/Creatinine [Mass ratio] 24 mg/mg Normal [facility] Comment on above: Performed By: #### X M #### [facility] (DEFAULT) [address] [place] [address] Cardiac echo study Procedure Ordered By: Ezequiel Figueroa on 08-05-2024 Ao ASC index 1.56 cm/m2 [facility] Work Phone: Ao peak fidel 1.23 m/s [facility] Work Phone: Ao SOV index 1.56 cm/m2 [facility] Work Phone: Ao STJ index 1.36 cm/m2 [facility] Work Phone: Ao VTI 24.81 cm [facility] Work Phone: Ascending aorta 2.97 cm [facility]: AV LVOT peak gradient 4 mmHg [facility] Work Phone: AV mean gradient 4 [facility] Phone: [phone] AV peak gradient 6 mmHG [facility] Work Phone: [phone] AV valve area 2.72 cm2 [facility] Work Phone: [phone] AV Velocity Ratio 0.8 [facility] Work Phone: [phone] MARKUS (continuity Vmax) 2.55 cm2 [facility] Work Phone: [phone] MARKUS (continuity VTI) 2.72 cm2 [facility] Work Phone: [phone] MARKUS index (continuity Vmax) 1.34 m/s [facility] Work Phone: [phone] MARKUS index (continuity VTI) 1.43 cm2/m2 [facility] Work Phone: [phone] Avg e' pk fidel 0.09 m/s [facility] Work Phone: [phone] Body surface area Derived from formula 1.9 m2 [facility] Work Phone: [phone] BP EF 55 % [facility] Work Phone: [phone] DI (Vmax) 0.8 [facility] Work Phone: [phone] DI (VTI) 0.86 m/2 [facility] Work Phone: [phone] e' lateral pk fidel 0.0845 m[facility]s [facility]: [phone] e' lateral pk fidel 0.08 m/s [facility] Work Phone: [phone] e' septal pk fidel 0.0953 m/s [facility] Work Phone: [phone] e' septal pk fidel 0.1 m/s [facility] Work Phone: [phone] EF SP 2CH 56 [facility] Work Phone: [phone] EF SP 4CH 51 [facility] Work Phone: [phone] EST RAP 3 mmHg [facility] Work Phone: [phone] EST RVSP 29 mmHg [facility] Work Phone: [phone] FS 31 % [facility] Work Phone: [phone] IVC ostium 1.64 cm [facility] Work Phone: [phone] IVS 1.14 cm [facility] Work Phone: [phone] LA area 4CH 29.07 cm2 [facility] Work Phone: [phone] LA ESV BP (MOD) 86 mL [facility] Work Phone: [phone] LA ESV BP (MOD) index 45 mL/m2 [facility] Work Phone: [phone] LA ESV SP 2CH (MOD) 81 mL [facility] Work Phone: [phone] LA ESV SP 4CH (MOD) 93 mL [facility] Work Phone: [phone] LV EDV BP 88 mL [facility] Work Phone: [phone] LV EDV SP 2CH 85 mL [facility] Work Phone: [phone] LV EDV SP 4CH 86 mL [facility] Work Phone: [phone] LV ESV BP 40 mL [facility] Work Phone: [phone] LV ESV SP 2CH 37 mL [facility] Work Phone: [phone] LV ESV SP 4CH 42 mL [facility] Work Phone: [phone] LV mass 146.48 g [facility] Work Phone: [phone] LV Mass Index 77.1 g/m2 [facility] Work Phone: [phone] LV RWT 0.56 [facility] Work Phone: [phone] LV stroke volume BP (ml) 48 mL [facility] Work Phone: [phone] LV stroke volume index BP 25.26 mL/m2 [facility] Work Phone: [phone] LVIDD 3.93 cm [facility] Work Phone: [phone] LVIDS 2.7 cm [facility] Work Phone: [phone] LVOT area 3.17 cm2 [facility] Work Phone: [phone] LVOT diameter 2.01 cm [facility] Work Phone: [phone] LVOT peak fidel 0.99 m/s [facility] Work Phone: [phone] LVOT peak VTI 21.3 cm [facility] Work Phone: [phone] LVOT stroke volume 68 cm3 [facility] Work Phone: [phone] LVOT stroke volume index 35.55 ml/m2 [facility] Work Phone: [phone] MV mean gradient 3 mmHg [facility] Work Phone: [phone] MV peak gradient 6 mmHg [facility] Work Phone: [phone] MV valve area by continuity eq 2.61 cm2 [facility] Work Phone: [phone] MV VTI 25.92 cm [facility] Work Phone: [phone] MVA (continuity VTI) 2.6 cm [facility] Work Phone: [phone] OSU AV VTI RATIO PRE STRESS 0.86 [facility] Work Phone: [phone] OSU ECHO LV BIPLANE SYSTOLIC VOLUME INDEX 21.05 mL/m2 [facility] Work Phone: [phone] OSU ECHO LV BP DIASTOLIC VOLUME INDEX 46.32 mL/m2 [facility] Work Phone: PV mean gradient 3 mmHg [facility] Work Phone: [phone] PV peak gradient 6 mmHg [facility] Work Phone: [phone] PV PK FIDEL 1.23 m/s [facility] Work Phone: PW 1.11 cm [facility] Work Phone: RA area 4CH (MOD) 22.74 cm2 [facility] Work Phone: RA vol index 4CH (MOD) 36.32 mL/m2 [facility] Work Phone: Right atrium volume 4 chamber method of disks 69 mL [facility] Work Phone: RV Area diastolic 17.5 cm2 [facility] Work Phone: RV Area systolic 11.9 cm2 [facility] Work Phone: RV basal diam 4.56 cm [facility] Work Phone: RV Fractional area change 32 % [facility] Work Phone: RV long diam 6.91 cm [facility] Work Phone: RV mid diam 2.91 cm [facility] Work Phone: RV S' 12.81 cm/s [facility] Work Phone: RVOT peak gradient 5 mmHg [facility] Work Phone: RVOT peak fidel 1.07 m/s [facility] Work Phone: RVOT peak VTI 20.1 cm [facility] Work Phone: Sinus 2.97 cm [facility] Work Phone: [phone] STJ 2.58 cm [facility] Work Phone: [phone] Stroke Volume 68 cm/mL [facility] Work Phone: [phone] Stroke volume index 36 [facility] Work Phone: [phone] TAPSE 2.08 cm [facility] Work Phone: [phone] TR pk grad 26 mmHg [facility] Work Phone: [phone] TR pk fidel 2.53 m/s [facility] Work Phone: [phone] [facility] Work Phone: [phone] Cardiac echo study Procedure on 08-05-2024 [facility] Radiology Study observation (narrative) [facility] ECHOCARDIOGRAMon 08-05-2024 Echocardiography ? No prior [...] original result were not included. [facility] Facility [facility] Patient Information Patient Name ArmandOctober Legal Sex [...] Role Read Date Ezequiel Figueroa DO Echo [place] 08/05/2024 Left Heart Measurements LV - Systole [...] long di (more content not included)... Normal [facility] GLUCOSE POCon 08-05-2024 Glucose [Mass/Vol] 228 mg/dL High 70 - 179 mg/dL [facility] Interpretation and review of laboratory results Abnormal [facility] POC Sample Type CAPBL [facility] IONIZED CALCIUM, WHOLE BLOOD on 08-05-2024 ICA 4.72 mg/dL Normal 4.60-5.30 [facility] Comment on above: Performed By: #### S URGP #### [facility] (DEFAULT) [address] [address] ICA 4.69 mg/dL Normal 4.60-5.30 [facility] Comment on above: Performed By: #### S URGP #### [facility] (DEFAULT) [address] [address] IONIZED CALCIUM, WHOLE BLOOD Ordered By: Jairo Layton on 08-05-2024 Calcium.ionized (Bld) [Moles/Vol] 4.69 mg/dL 4.60 - 5.30 mg/dL [facility] Interpretation and review of laboratory results Normal [facility] MAGNESIUMon 08-05-2024 Magnesium [Mass/Vol] 2.4 mg/dL Normal 1.6-2.6 [facility] Comment on above: Performed By: #### S URGP #### [facility] (DEFAULT) [address] [place] [address] Magnesium [Mass/Vol] 1.8 mg/dL 1.6 - 2 .6 mg/dL [facility] Magnesium [Mass/Vol] 1.8 mg/dL Normal 1.6-2.6 [facility] Comment on above: Performed By: #### X M #### [facility] (DEFAULT) [address] [place] [address] No Panel Informationon 08-05 Interpretation and review of laboratory results Normal [facility] PHOSPHATE, INORGANICon 08-05 Phosphorous 3.2 mg/dL Normal 2.2-4.6 [facility] Comment on above: Performed By: #### S URGP #### [facility] (DEFAULT) [address] [place] [address] Phosphate [Mass/Vol] 2.7 mg/dL 2.2 - 4 .6 mg/dL [facility] Phosphorous 2.7 mg/dL Normal 2.2-4.6 [facility] Comment on above: Performed By: #### X M #### [facility] (DEFAULT) [address] [place] [address] [facility] FACTOR AGOrde red By: Madhavi Mcelroy on 08-05-2024 Interpretation and review of laboratory results Abnormal [facility] vWf Ag actual/normal IA (PPP) [Relative mass conc] 230 % High 50 - 180 % [facility] CBC,PLATELETSon 08-04-2024 Erythrocyte distribution width (RBC) [Ratio] 13.7 % 10.8 - 14.9 % [facility] Hematocrit (Bld) [Volume fraction] 40.8 % 34.9 - 44.3 % [facility] Hemoglobin (Bld) [Mass/Vol] 12.7 g/dL 11.4 - 15.2 g/dL [facility] Interpretation and review of laboratory results Abnormal [facility] MCH (RBC) [Entitic mass] 28.7 pg 25.9 - 33.9 pg [facility] MCHC (RBC) [Mass/Vol] 31.1 g/dL Low 31.4 - 35.9 g/dL [facility] MCV (RBC) [Entitic vol] 92.1 fL 79.6 - 97.7 fL [facility] Platelet mean volume (Bld) [Entitic vol] 10.8 fL 8.5 - 12.2 fL [facility] Platelets (Bld) [#/Vol] 228 10*3/uL 150 - 393 K/uL [facility] RBC (Bld) [#/Vol] 4.43 10*6/uL [facility] WBC (Bld) [#/Vol] 11.41 10*3/uL High 3.99 - 11.19 K/uL [facility] Hematocrit (Bld) [Volume fraction] 40.8 % Normal 34.9-44.3 [facility] Comment on above: Performed By: #### [facility] [place] #### [facility] (DEFAULT) [address] [place] [address] Hemoglobin (Bld) [Mass/Vol] 12.7 g/dL Normal 11.4-15.2 [facility] Comment on above: Performed By: #### [facility] [place] #### [facility] (DEFAULT) [address] [place] [address] MCV (RBC) [Entitic vol] 92.1 fL Normal 79.6-97.7 [facility] Comment on above: Performed By: #### H EMOGC #### [facility] (DEFAULT) [address] [address] Mean Cell Hgb 28.7 pg Normal 25.9-33.9 [facility] Comment on above: Performed By: #### H EMOGC #### [facility] (DEFAULT) [address] [address] Mean Cell Hgb Conc 31.1 g/dL Low 31.4-35.9 [facility] Comment on above: Performed By: #### H EMOGC #### [facility] (DEFAULT) [address] [address] Platelet mean volume (Bld) [Entitic vol] 10.8 fL Normal 8.5-12.2 [facility] Comment on above: Performed By: #### H EMOGC #### [facility] (DEFAULT) [address] [address] Platelets (Bld) [#/Vol] 228 10*3/uL Normal 150-393 [facility] Comment on above: Performed By: #### H EMOGC #### [facility] (DEFAULT) [address] [address] RBC (Bld) [#/Vol] 4.43 10*6/uL Normal 3.91-5.04 [facility] Comment on above: Performed By: #### H EMOGC #### [facility] (DEFAULT) [address] [address] RBC Distribution 13.7 % Normal 10.8-14.9 [facility] Comment on above: Performed By: #### H EMOGC #### [facility] (DEFAULT) [address] [address] WBC (Bld) [#/Vol] 11.41 10*3/uL High 3.99-11.19 [facility] Comment on above: Performed By: #### H EMOGC #### [facility] (DEFAULT) [address] [place] [address] CHEM 7 (LYTES,BUN,CREA,GLUC) Ordered By: Lizette Canseco on 08-04-2024 Anion gap [Moles/Vol] 16 mmol/L 7 - 17 mmol/L [facility] Chloride [Moles/Vol] 109 mmol/L High 98 - 10 8 mmol/L [facility] CO2 [Moles/Vol] 24 mmol/L 21 - 31 mmol/L [facility] Creatinine [Mass/Vol] 1.47 mg/dL High 0.50 - 1.20 mg/dL [facility] eGFR, CKD-EPI, Female 36 Low - PINF [facility] Glucose [Mass/Vol] 181 mg/dL High 70 - 179 mg/dL [facility] Interpretation and review of laboratory results Abnormal [facility] Osmolality Calc [Osmolality] 312 High [facility] Potassium [Moles/Vol] 4 mmol/L 3.5 - 5.0 mmol/L [facility] Sodium [Moles/Vol] 145 mmol/L 135 - 145 mmol/L [facility] Urea nitrogen [Mass/Vol] 26 mg/dL High 7 - 25 mg/dL [facility] Urea nitrogen/Creatinine [Mass ratio] 18 mg/mg [facility] CHEM 7 (LYTES,BUN,CREA,GLUC) on 08-04-2024 Anion gap [Moles/Vol] 16 mmol/L Normal 7-17 [facility] Comment on above: Performed By: #### S URGP #### [facility] (DEFAULT) [address] [place] [address] Chloride [Moles/Vol] 109 mmol/L High 98-108 [facility] Comment on above: Performed By: #### S URGP #### [facility] (DEFAULT) [address] [place] [address] CO2 [Moles/Vol] 24 mmol/L Normal 21-31 [facility] Comment on above: Performed By: #### S URGP #### [facility] (DEFAULT) [address] [place] [address] Creatinine [Mass/Vol] 1.47 mg/dL High 0.50-1.20 [facility] Comment on above: Performed By: #### S URGP #### [facility] (DEFAULT) [address] [place] [address] GFR/1.73 sq M.predicted among non-blacks MDRD (S/P/Bld) [Vol rate/Area] 36 mL/min/{1.73_m2} Low >=60 [facility] Comment on above: Result Comment: Repo rted eGFR is based on the CKD-EPI 2020 equation using creatinine, age, and sex. Performed By: #### S URGP #### [facility] (DEFAULT) [address] [place] [address] Glucose [Mass/Vol] 181 mg/dL High Nonfastin -179 mg/dL; Fastin-99 [facility] Comment on above: Performed By: #### S URGP #### [facility] (DEFAULT) [address] [place] [address] Osmolality [Osmolality] 312 mosm/kg High 278-305 [facility] Comment on above: Performed By: #### S URGP #### [facility] (DEFAULT) [address] [place] [address] Potassium [Moles/Vol] 4.0 mmol/L Normal 3.5-5.0 [facility] Comment on above: Performed By: #### S URGP #### [facility] (DEFAULT) [address] [place] [address] Sodium [Moles/Vol] 145 mmol/L Normal 135-145 [facility] Comment on above: Performed By: #### S URGP #### [facility] (DEFAULT) [address] [place] [address] Urea nitrogen [Mass/Vol] 26 mg/dL High 7-25 [facility] Comment on above: Performed By: #### S URGP #### [facility] (DEFAULT) [address] [place] [address] Urea nitrogen/Creatinine [Mass ratio] 18 mg/mg Normal [facility] Comment on above: Performed By: #### S URGP #### [facility] (DEFAULT) [address] [place] [address] CT HEAD WITHOUT CONTRASTon 0 08-04-2024 CT [...] sinuses are clear. IMPRESSION: Stable exam. Normal [facility] CT Head WO contraston 2024 RADIOLOGY RADIOLOGY [facility] CT Head WO contrastOrdered B y: Chirag Mendenhall on 08-04-2024 [facility] Work Phone: GLUCOSE POCon 08-04-2024 Glucose [Mass/Vol] 227 mg/dL High 70 - 179 mg/dL [facility] Interpretation and review of laboratory results Abnormal [facility] POC Sample Type [facility] Glucose [Mass/Vol] 235 mg/dL High 70 - 179 mg/dL [facility] Interpretation and review of laboratory results Abnormal [facility] POC Sample Type VENO [facility] Glucose [Mass/Vol] 215 mg/dL High 70 - 179 mg/dL [facility] Interpretation and review of laboratory results Abnormal [facility] POC Sample Type CAPBL [facility] Glucose [Mass/Vol] 178 mg/dL 70 - 179 mg/dL [facility] Glucose [Mass/Vol] 157 mg/dL 70 - 179 mg/dL [facility] Glucose [Mass/Vol] 271 mg/dL High 70 - 179 mg/dL [facility] Glucose [Mass/Vol] 267 mg/dL High 70 - 179 mg/dL [facility] Glucose [Mass/Vol] 246 mg/dL High 70 - 179 mg/dL [facility] IONIZED CALCIUM, WHOLE BLOOD Ordered By: Laura Rodriguez on 08-04-2024 Calcium.ionized (Bld) [Moles/Vol] 4.8 mg/dL 4.60 - 5.30 mg/dL [facility] Interpretation and review of laboratory results Normal [facility] IONIZED CALCIUM, WHOLE BLOOD on 08-04-2024 ICA 4.80 mg/dL Normal 4.60-5.30 [facility] Comment on above: Performed By: #### T YPEC #### [facility] (DEFAULT) [address] [address] MAGNESIUMon 08-04-2024 Magnesium [Mass/Vol] 1.9 mg/dL 1.6 - 2 .6 mg/dL [facility] Magnesium [Mass/Vol] 1.9 mg/dL Normal 1.6-2.6 [facility] Comment on above: Performed By: #### X M #### [facility] (DEFAULT) [address] [place] [address] No Panel Informationon 08-04 POC Sample Type CAPBL [facility] Interpretation and review of laboratory results Abnormal [facility] Interpretation and review of laboratory results Normal [facility] PHOSPHATE, INORGANICon 08-04 Phosphate [Mass/Vol] 2.8 mg/dL 2.2 - 4 .6 mg/dL [facility] Phosphorous 2.8 mg/dL Normal 2.2-4.6 [facility] Comment on above: Performed By: #### X M #### [facility] (DEFAULT) [address] [address] SODIUMon 08-04-2024 Interpretation and review of laboratory results Normal [facility] Sodium [Moles/Vol] 142 mmol/L 135 - 145 mmol/L [facility] Sodium [Moles/Vol] 142 mmol/L Normal 135-145 [facility] Comment on above: Order Comment: While on 3% Hypertonic Saline. Performed By: #### S URGP #### [facility] (DEFAULT) [address] [place] [address] Interpretation and review of laboratory results Normal [facility] Sodium [Moles/Vol] 141 mmol/L 135 - 145 mmol/L [facility] Sodium [Moles/Vol] 141 mmol/L Normal 135-145 [facility] Comment on above: Order Comment: 2 [...] bottle. Performed By: #### B LDCULT #### [facility] (DEFAULT) [address] [place] [address] Interpretation and review of laboratory results Normal [facility] Sodium [Moles/Vol] 143 mmol/L 135 - 145 mmol/L [facility] Sodium [Moles/Vol] 143 mmol/L Normal 135-145 [facility] Comment on above: Order Comment: While on 3% Hypertonic Saline. Performed By: #### H EMOGC #### [facility] (DEFAULT) [address] [place] [address] ABORH TYPE RECONFIRMATIONon 08-03-2024 ABO/RH(D) TYPE Negative [facility] ABO/RH(D) TYPE Negative Normal [facility] Comment on above: Performed By: #### T YPEC #### [facility] (DEFAULT) [address] [place] [address] CBC,PLATELETSon 08-03-2024 Erythrocyte distribution width (RBC) [Ratio] 13.2 % 10.8 - 14.9 % [facility] Hematocrit (Bld) [Volume fraction] 42.8 % 34.9 - 44.3 % [facility] Hemoglobin (Bld) [Mass/Vol] 13.5 g/dL 11.4 - 15.2 g/dL [facility] Interpretation and review of laboratory results Normal [facility] MCH (RBC) [Entitic mass] 29.2 pg 25.9 - 33.9 pg [facility] MCHC (RBC) [Mass/Vol] 31.5 g/dL 31.4 - 35.9 g/dL [facility] MCV (RBC) [Entitic vol] 92.4 fL 79.6 - 97.7 fL [facility] Platelet mean volume (Bld) [Entitic vol] 11.2 fL 8.5 - 12.2 fL [facility] Platelets (Bld) [#/Vol] 227 10*3/uL 150 - 393 K/uL [facility] RBC (Bld) [#/Vol] 4.63 10*6/uL [facility] WBC (Bld) [#/Vol] 8.43 10*3/uL 3.99 - 11.19 K/uL [facility] Hematocrit (Bld) [Volume fraction] 42.8 % Normal 34.9-44.3 [facility] Comment on above: Performed By: #### X M #### [facility] (DEFAULT) [address] [address] Hemoglobin (Bld) [Mass/Vol] 13.5 g/dL Normal 11.4-15.2 [facility] Comment on above: Performed By: #### X M #### [facility] (DEFAULT) [address] [address] MCV (RBC) [Entitic vol] 92.4 fL Normal 79.6-97.7 [facility] Comment on above: Performed By: #### X M #### [facility] (DEFAULT) [address] [address] Mean Cell Hgb 29.2 pg Normal 25.9-33.9 [facility] Comment on above: Performed By: #### X M #### [facility] (DEFAULT) [address] [address] Mean Cell Hgb Conc 31.5 g/dL Normal 31.4-35.9 [facility] Comment on above: Performed By: #### X M #### [facility] (DEFAULT) [address] [address] Platelet mean volume (Bld) [Entitic vol] 11.2 fL Normal 8.5-12.2 [facility] Comment on above: Performed By: #### X M #### [facility] (DEFAULT) [address] [address] Platelets (Bld) [#/Vol] 227 10*3/uL Normal 150-393 [facility] Comment on above: Performed By: #### X M #### [facility] (DEFAULT) [address] [place] [address] RBC (Bld) [#/Vol] 4.63 10*6/uL Normal 3.91-5.04 [facility] Comment on above: Performed By: #### X M #### [facility] (DEFAULT) [address] [place] [address] RBC Distribution 13.2 % Normal 10.8-14.9 [facility] Comment on above: Performed By: #### X M #### [facility] (DEFAULT) [address] [place] [address] WBC (Bld) [#/Vol] 8.43 10*3/uL Normal 3.99-11.19 [facility] Comment on above: Performed By: #### X M #### [facility] (DEFAULT) [address] [place] [address] CHEM 7 (LYTES,BUN,CREA,GLUC) on 08-03-2024 Anion gap [Moles/Vol] 16 mmol/L 7 - 17 mmol/L [facility] Chloride [Moles/Vol] 103 mmol/L 98 - 10 8 mmol/L [facility] CO2 [Moles/Vol] 23 mmol/L 21 - 31 mmol/L [facility] Creatinine [Mass/Vol] 1.35 mg/dL High 0.50 - 1.20 mg/dL [facility] eGFR, CKD-EPI, Female 40 Low - PINF [facility] Glucose [Mass/Vol] 151 mg/dL 70 - 179 mg/dL [facility] Interpretation and review of laboratory results Abnormal [facility] Osmolality Calc [Osmolality] 295 [facility] Potassium [Moles/Vol] 4.3 mmol/L 3.5 - 5.0 mmol/L [facility] Sodium [Moles/Vol] 138 mmol/L 135 - 145 mmol/L [facility] Urea nitrogen [Mass/Vol] 18 mg/dL 7 - 25 mg/dL [facility] Urea nitrogen/Creatinine [Mass ratio] 13 [facility] Anion gap [Moles/Vol] 16 mmol/L Normal 7-17 [facility] Comment on above: Performed By: #### S URGP #### [facility] (DEFAULT) [address] [place] [address] Chloride [Moles/Vol] 103 mmol/L Normal 98-108 [facility] Comment on above: Performed By: #### S URGP #### [facility] (DEFAULT) [address] [place] [address] CO2 [Moles/Vol] 23 mmol/L Normal 21-31 [facility] Comment on above: Performed By: #### S URGP #### [facility] (DEFAULT) [address] [place] [address] Creatinine [Mass/Vol] 1.35 mg/dL High 0.50-1.20 [facility] Comment on above: Performed By: #### S URGP #### [facility] (DEFAULT) [address] [place] [address] GFR/1.73 sq M.predicted among non-blacks MDRD (S/P/Bld) [Vol rate/Area] 40 mL/min/{1.73_m2} Low >=60 [facility] Comment on above: Result Comment: Repo rted eGFR is based on the CKD-EPI 2020 equation using creatinine, age, and sex. Performed By: #### S URGP #### [facility] (DEFAULT) [address] [place] [address] Glucose [Mass/Vol] 151 mg/dL Normal Nonfastin -179 mg/dL; Fastin-99 [facility] Comment on above: Performed By: #### S URGP #### [facility] (DEFAULT) [address] [address] Osmolality [Osmolality] 295 mosm/kg Normal 278-305 [facility] Comment on above: Performed By: #### S URGP #### [facility] (DEFAULT) [address] [place] [address] Potassium [Moles/Vol] 4.3 mmol/L Normal 3.5-5.0 [facility] Comment on above: Result Comment: Spec imen slightly hemolyzed. Potassium results may be falsey elevated by more than 0.5 mmol/L. Consider recollection. Performed By: #### S URGP #### [facility] (DEFAULT) [address] [place] [address] Sodium [Moles/Vol] 138 mmol/L Normal 135-145 [facility] Comment on above: Performed By: #### S URGP #### [facility] (DEFAULT) [address] [place] [address] Urea nitrogen [Mass/Vol] 18 mg/dL Normal 7-25 [facility] Comment on above: Performed By: #### S URGP #### [facility] (DEFAULT) [address] [place] [address] Urea nitrogen/Creatinine [Mass ratio] 13 mg/mg Normal [facility] Comment on above: Performed By: #### S URGP #### [facility] (DEFAULT) [address] [place] [address] CHEST WITH CONTRAST VASCU LAR TRAUMAon [...] have reviewed and approved this report. Normal [facility] CT Cervical spine WO contras ton 08-03-2024 RADIOLOGY RADIOLOGY [facility] CT Cervical spine WO contras tOrdered By: Alissa Chun on 08-03-2024 [facility] Work Phone: CT Chest W contrast Seth RADIOLOGY RADIOLOGY [facility] CT Chest W contrast IVOrdere d By: Kayla Newell on 08-03-2024 [facility] Work Phone: CT HEAD WITHOUT CONTRASTon 0 [...] since the MRI from earlier today Normal [facility] CT Head WO contraston [...] basal ganglia hyperdensity concerning for hemorrhage. Normal [facility] CT Orbit WO contraston [...] No evidence of acute fractures identified Normal [facility] EXTRA MICROon 08-03-2024 [facility] GLUCOSE POCon 08-03-2024 Glucose [Mass/Vol] 161 mg/dL 70 - 179 mg/dL [facility] POC Sample Type CAPBL [facility] IONIZED CALCIUM, WHOLE BLOOD Ordered By: Alejandra Ness on 08-03-2024 Calcium.ionized (Bld) [Moles/Vol] 4.24 mg/dL Low 4.60 - 5.30 mg/dL [facility] Interpretation and review of laboratory results Abnormal [facility] IONIZED CALCIUM, WHOLE BLOOD on 08-03-2024 ICA 4.24 mg/dL Low 4.60-5.30 [facility] Comment on above: Performed By: #### [facility] [place] #### [facility] (DEFAULT) [address] [place] [address] MAGNESIUMon 08-03-2024 Magnesium [Mass/Vol] 2.1 mg/dL 1.6 - 2 .6 mg/dL [facility] Magnesium [Mass/Vol] 2.1 mg/dL Normal 1.6-2.6 [facility] Comment on above: Performed By: #### S URGP #### [facility] (DEFAULT) [address] [place] [address] MR Brain WO contraston 08-03 RADIOLOGY RADIOLOGY [facility] Radiology Study observation (narrative) [facility] MR Cervical spine WO contras ton 08-03-2024 RADIOLOGY RADIOLOGY [facility] Radiology Study observation (narrative) [facility] MR Cervical spine WO contras tOrdered By: Kuldeep Tavares on 08-03-2024 [facility] Work Phone: MRI BRAIN WITHOUT CONTRASTon 08-03-2024 [...] tiny 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 Normal [facility] MRI SPINE CERVICAL WITHOUT [...] have reviewed and approved this report. Normal [facility] NT-PRO B-TYPE NATRIURETIC PE PTIDEon 08-03-2024 Interpretation and review of laboratory results Abnormal [facility] Natriuretic peptide.B prohormone N-Terminal IA [Mass/Vol] 1115 pg/mL High NINF - 540 pg/mL [facility] No Panel Informationon 08-03 RADIOLOGY RADIOLOGY [facility] Interpretation and review of laboratory results Normal [facility] No Panel InformationOrdered By: Richard Sánchez on 08-03-2024 [facility] Work Phone: PHOSPHATE, INORGANICon 08-03 Phosphate [Mass/Vol] 3.5 mg/dL 2.2 - 4 .6 mg/dL [facility] Phosphorous 3.5 mg/dL Normal 2.2-4.6 [facility] Comment on above: Performed By: #### S URGP #### [facility] (DEFAULT) [address] [place] [address] SCREEN: MRSA/MSSAOrdered By: Gail Collado on 08-03-2024 Interpretation and review of laboratory results Normal [facility] Methicillin Resistant S. Aureus By Pcr Negative Negative [facility] Staphylococcus Aureus By Pcr Negative Negative [facility] SODIUMon 08-03-2024 Interpretation and review of laboratory results Normal [facility] Sodium [Moles/Vol] 139 mmol/L 135 - 145 mmol/L [facility] Sodium [Moles/Vol] 139 mmol/L Normal 135-145 [facility] Comment on above: Order Comment: While on 3% Hypertonic Saline. Performed By: #### N AO ####[facility] (DEFAULT)[address] [place] [address] Interpretation and review of laboratory results Abnormal [facility] Sodium [Moles/Vol] 134 mmol/L Low 135 - 145 mmol/L [facility] Sodium [Moles/Vol] 134 mmol/L Low 135-145 [facility] Comment on above: Order Comment: While on 3% Hypertonic Saline. Performed By: #### H EMOGC #### [facility] (DEFAULT) [address] [place] [address] XR ABDOMEN 1 VIEW PORTABLEon 08-03-2024 XR [...] proximal second portion of the duodenum. Normal [facility] XR Abdomen Single viewon RADIOLOGY RADIOLOGY [facility] Radiology Study observation (narrative) [facility] XR Abdomen Single viewOrdere d By: Huey Gibson on 08-03-2024 [facility] XR ELBOW RIGHT 2 VIEWSon XR ELBOW RIGHT 2 VIEWS EXAM: XR ELBOW RI GHT 2 VIEWS, XR HUMERUS RIGHT 2+ VIEWS, XR WRIST RIGHT 3+ VIEWS, 08/02/2024 23:24 PM (accession [id number]), 08/02/2024 23:24 PM (accession [id number]), 08/02/2024 23:23 PM (accession [id number]) COMPARISON: No prior studies available for comparison. [...] dislocation. IMPRESSION: No acute osseous abnormality. Normal [facility] XR HUMERUS RIGHT 2+ VIEWSon 08-03-2024 XR HUMERUS RIGHT 2+ VIEWS EXAM: XR ELBOW RIGHT 2 VIEWS, XR HUMERUS RIGHT 2+ VIEWS, XR WRIST RIGHT 3+ VIEWS, 08/02/2024 23:24 PM (accession [id number]), 08/02/2024 23:24 PM (accession [id number]), 08/02/2024 23:23 PM (accession [id number]) COMPARISON: No prior studies available for comparison. [...] dislocation. IMPRESSION: No acute osseous abnormality. Normal [facility] XR WRIST RIGHT 3+ VIEWSon XR WRIST RIGHT 3+ VIEWS EXAM: XR ELBOW R IGHT 2 VIEWS, XR HUMERUS RIGHT 2+ VIEWS, XR WRIST RIGHT 3+ VIEWS, 08/02/2024 23:24 PM (accession [id number]), 08/02/2024 23:24 PM (accession [id number]), 08/02/2024 23:23 PM (accession [id number]) COMPARISON: No prior studies available for comparison. [...] or dislocation. IMPRESSION: No acute osseous abnormality. [facility] 12 Lead EKGon 08-02-2024 12 Lead EKG [facility] [address] [place] [address] 12 Lead EKG 08/02/24 1309 MR#: [id number] Acct: [id number] Name: LINDSAY ACUNA Rep #: [id number] : 1945 78 From: Mj Benavides MD [...] ECG Confirmed by MAKAYLA LAWSON, MJ ([id number]), commissioning editor NAIMA BEARDEN ([id number]) on 08/05/2024 6:47:07 AM Referred By: Confirmed By: MJ BENAVIDES MD 08/05/24 0647 Date Mj Benavides MD CC: Dr. Pieter Morgan MD; Dr. Kameron Caruso MD Signed Normal [facility] Absolute lymphocyte countOrd ered By: Pieter Morgan on 08-02-2024 Lymphocytes Auto (Unsp spec) [#/Vol] 1.56 10*3/uL 0.83-4.51 [facility] Absolute neutrophil countOrd ered By: Pieter Morgan on 08-02-2024 Neutrophils (Bld) [#/Vol] 6.2 10*3/uL 2.0-7.7 [facility] Activated partial thrombopla stin time (aPTT) in platelet poor plasma by coagulation aOrdered By: Pieter Morgan on 08-02-2024 aPTT Coag (PPP) [Time] 28.4 s 24.1-36.2 [facility] Anion gap in Serum or Plasma Ordered By: Pieter Morgan on 08-02-2024 Anion gap [Moles/Vol] 12 mmol/L 5-15 [facility] Automated lymphocyte count a s percentage of total leukocytesOrdered By: Pieter Morgan on 08-02-2024 Lymphocytes/100 WBC Auto (Unsp spec) 17.9 % Low 19-41 [facility] BUN/creatinine ratioOrdered By: Pieter Morgan on 08-02-2024 Urea nitrogen/Creatinine [Mass ratio] 11.6 mg/mg - [facility] Basic Metabolic Profile (BMP )on 08-02-2024 BUN/CRE 11.6 RATIO Normal - [facility] Comment on above: Performed By: #### L 300.4310, L501.4021, L300.3900, L500.2500, L100.0100 #### [facility] Laboratory [address] [place], [address] Calcium [Mass/Vol] 9.0 mg/dL Normal 7.6-11.0 [facility] Comment on above: Performed By: #### L 300.4310, L501.4021, L300.3900, L500.2500, L100.0100 #### [facility] Laboratory [address] [place], [address] Chloride [Moles/Vol] 98 mmol/L Normal 98-108 [facility] Comment on above: Performed By: #### L 300.4310, L501.4021, L300.3900, L500.2500, L100.0100 #### [facility] Laboratory [address] [place], [address] CO2 [Moles/Vol] 22.0 mmol/L Normal 21.0-32.0 [facility] Comment on above: Performed By: #### L 300.4310, L501.4021, L300.3900, L500.2500, L100.0100 #### [facility] Laboratory [address] [place], [address] Creatinine [Mass/Vol] 1.74 mg/dL High 0.70-1.20 [facility] Comment on above: Performed By: #### L 300.4310, L501.4021, L300.3900, L500.2500, L100.0100 #### [facility] Laboratory [address] [place], [address] ECRCL 27.14 ml/min Low 50-250 [facility] Comment on above: Performed By: #### L 300.4310, L501.4021, L300.3900, L500.2500, L100.0100 #### [facility] Laboratory [address] [place], [address] GAP 12 Normal 5-15 [facility] Comment on above: Performed By: #### L 300.4310, L501.4021, L300.3900, L500.2500, L100.0100 #### [facility] Laboratory [address] [place], [address] GFR/1.73 sq M.predicted among non-blacks MDRD (S/P/Bld) [Vol rate/Area] 29 mL/min/{1.73_m2} Low >60 [facility] Comment on above: Result Comment: mL/m in/1.73m2 CKD-EPI Creatinine Equation (2020) Performed By: #### L 300.4310, L501.4021, L300.3900, L500.2500, L100.0100 #### [facility] Laboratory [address] [place], [address] Glucose [Mass/Vol] 235 mg/dL High 70-99 [facility] Comment on above: Performed By: #### L 300.4310, L501.4021, L300.3900, L500.2500, L100.0100 #### [facility] Laboratory [address] [place], [address] Potassium [Moles/Vol] 4.2 mmol/L Normal 3.3-5.1 [facility] Comment on above: Performed By: #### L 300.4310, L501.4021, L300.3900, L500.2500, L100.0100 #### [facility] Laboratory [address] [place], [address] Sodium [Moles/Vol] 132 mmol/L Low 133-145 [facility] Comment on above: Performed By: #### L 300.4310, L501.4021, L300.3900, L500.2500, L100.0100 #### [facility] Laboratory [address] [place], [address] Urea nitrogen [Mass/Vol] 20 mg/dL High 4-19 [facility] Comment on above: Performed By: #### L 300.4310, L501.4021, L300.3900, L500.2500, L100.0100 #### [facility] Laboratory [address] [place], [address] Basophil percentageOrdered B y: Pieter Morgan on 08-02-2024 Basophils/100 WBC (Bld) 0.5 % 0-1 [facility] CBC W/Diff, Automatedon 07-14 Absolute Lymph 1.56 X10 3/uL Normal 0.83-4.51 [facility] Comment on above: Performed By: #### L 300.4310, L501.4021, L300.3900, L500.2500, L100.0100 #### [facility] Laboratory [address] [place], [address] Absolute Neut 6.2 X10 3/uL Normal 2.0-7.7 [facility] Comment on above: Performed By: #### L 300.4310, L501.4021, L300.3900, L500.2500, L100.0100 #### [facility] Laboratory [address] [place], [address] Basophils/100 WBC (Bld) 0.5 % Normal 0-1 [facility] Comment on above: Performed By: #### L 300.4310, L501.4021, L300.3900, L500.2500, L100.0100 #### [facility] Laboratory [address] [place], [address] Eosinophils/100 WBC (Bld) 1.0 % Normal 0-5 [facility] Comment on above: Performed By: #### L 300.4310, L501.4021, L300.3900, L500.2500, L100.0100 #### [facility] Laboratory [address] [place], [address] Erythrocyte distribution width (RBC) [Ratio] 13.3 % Normal 11.6-14.6 [facility] Comment on above: Performed By: #### L 300.4310, L501.4021, L300.3900, L500.2500, L100.0100 #### [facility] Laboratory [address] [place], [address] Hematocrit (Bld) [Volume fraction] 42.0 % Normal 37-47 [facility] Comment on above: Performed By: #### L 300.4310, L501.4021, L300.3900, L500.2500, L100.0100 #### [facility] Laboratory [address] [place], [address] Hemoglobin (Bld) [Mass/Vol] 13.8 g/dL Normal 12.0-15.0 [facility] Comment on above: Performed By: #### L 300.4310, L501.4021, L300.3900, L500.2500, L100.0100 #### [facility] Laboratory [address] [place], [address] IG% 0.300 Normal 0.0-0.9 [facility] Comment on above: Result Comment: IG% - Immature Granulocytes (promyelocytes, myelocytes and metamyelocytes) > 1% indicates that a LEFT SHIFT is Present. Performed By: #### L 300.4310, L501.4021, L300.3900, L500.2500, L100.0100 #### [facility] Laboratory [address] [place], [address] Lymphocytes/100 WBC (Bld) 17.9 % Low 19-41 [facility] Comment on above: Performed By: #### L 300.4310, L501.4021, L300.3900, L500.2500, L100.0100 #### [facility] Laboratory [address] [place], [address] MCH (RBC) [Entitic mass] 30.3 pg Normal 27.0-32.0 [facility] Comment on above: Performed By: #### L 300.4310, L501.4021, L300.3900, L500.2500, L100.0100 #### [facility] Laboratory [address] [place], [address] MCHC (RBC) [Mass/Vol] 32.9 g/dL Normal 32-36 [facility] Comment on above: Performed By: #### L 300.4310, L501.4021, L300.3900, L500.2500, L100.0100 #### [facility] Laboratory [address] [place], [address] MCV (RBC) [Entitic vol] 92.1 fL Normal 81-99 [facility] Comment on above: Performed By: #### L 300.4310, L501.4021, L300.3900, L500.2500, L100.0100 #### [facility] Laboratory [address] [place], [address] Monocytes/100 WBC (Bld) 8.9 % Normal 0-10 [facility] Comment on above: Performed By: #### L 300.4310, L501.4021, L300.3900, L500.2500, L100.0100 #### [facility] Laboratory [address] [place], [address] Neutrophils/100 WBC (Bld) 71.4 % High 47-70 [facility] Comment on above: Performed By: #### L 300.4310, L501.4021, L300.3900, L500.2500, L100.0100 #### [facility] Laboratory [address] [place], [address] Nucleated RBC (Bld) [#/Vol] 0 10*3/uL Normal 0-5 [facility] Comment on above: Performed By: #### L 300.4310, L501.4021, L300.3900, L500.2500, L100.0100 #### [facility] Laboratory [address] [place], [address] Platelet mean volume (Bld) [Entitic vol] 10.7 fL Normal 6.2-12.0 [facility] Comment on above: Performed By: #### L 300.4310, L501.4021, L300.3900, L500.2500, L100.0100 #### [facility] Laboratory [address] [place], [address] Platelets (Bld) [#/Vol] 214 10*3/uL Normal 150-450 [facility] Comment on above: Performed By: #### L 300.4310, L501.4021, L300.3900, L500.2500, L100.0100 #### [facility] Laboratory [address] [place], [address] RBC (Bld) [#/Vol] 4.56 10*6/uL Normal 4.2-5.4 [facility] Comment on above: Performed By: #### L 300.4310, L501.4021, L300.3900, L500.2500, L100.0100 #### [facility] Laboratory [address] [place], [address] RDW SD 45.3 fl High 35.1-43.9 [facility] Comment on above: Performed By: #### L 300.4310, L501.4021, L300.3900, L500.2500, L100.0100 #### [facility] Laboratory [address] [place], [address] WBC (Bld) [#/Vol] 8.7 10*3/uL Normal 4.4-11.0 [facility] Comment on above: Performed By: #### L 300.4310, L501.4021, L300.3900, L500.2500, L100.0100 #### [facility] Laboratory [address] [place], [address] CBC,PLATELETSon 08-02-2024 Erythrocyte distribution width (RBC) [Ratio] 13.3 % 10.8 - 14.9 % [facility] Hematocrit (Bld) [Volume fraction] 43.8 % 34.9 - 44.3 % [facility] Hemoglobin (Bld) [Mass/Vol] 14 g/dL 11.4 - 15.2 g/dL [facility] Interpretation and review of laboratory results Normal [facility] MCH (RBC) [Entitic mass] 29.4 pg 25.9 - 33.9 pg [facility] MCHC (RBC) [Mass/Vol] 32 g/dL 31.4 - 35.9 g/dL [facility] MCV (RBC) [Entitic vol] 92 fL 79.6 - 97.7 fL [facility] Platelet mean volume (Bld) [Entitic vol] 10.8 fL 8.5 - 12.2 fL [facility] Platelets (Bld) [#/Vol] 245 10*3/uL 150 - 393 K/uL [facility] RBC (Bld) [#/Vol] 4.76 10*6/uL [facility] WBC (Bld) [#/Vol] 8.16 10*3/uL 3.99 - 11.19 K/uL [facility] Hematocrit (Bld) [Volume fraction] 43.8 % Normal 34.9-44.3 [facility] Comment on above: Performed By: #### B LDCULT #### [facility] (DEFAULT) [address] [place] [address] Hemoglobin (Bld) [Mass/Vol] 14.0 g/dL Normal 11.4-15.2 [facility] Comment on above: Performed By: #### B LDCULT #### [facility] (DEFAULT) [address] [place] [address] MCV (RBC) [Entitic vol] 92.0 fL Normal 79.6-97.7 [facility] Comment on above: Performed By: #### B LDCULT #### [facility] (DEFAULT) [address] [place] [address] Mean Cell Hgb 29.4 pg Normal 25.9-33.9 [facility] Comment on above: Performed By: #### B LDCULT #### [facility] (DEFAULT) [address] [place] [address] Mean Cell Hgb Conc 32.0 g/dL Normal 31.4-35.9 [facility] Comment on above: Performed By: #### B LDCULT #### [facility] (DEFAULT) [address] [place] [address] Platelet mean volume (Bld) [Entitic vol] 10.8 fL Normal 8.5-12.2 [facility] Comment on above: Performed By: #### B LDCULT #### [facility] (DEFAULT) [address] [place] [address] Platelets (Bld) [#/Vol] 245 10*3/uL Normal 150-393 [facility] Comment on above: Performed By: #### B LDCULT #### [facility] (DEFAULT) [address] [place] [address] RBC (Bld) [#/Vol] 4.76 10*6/uL Normal 3.91-5.04 [facility] Comment on above: Performed By: #### B LDCULT #### [facility] (DEFAULT) [address] [place] [address] RBC Distribution 13.3 % Normal 10.8-14.9 [facility] Comment on above: Performed By: #### B LDCULT #### [facility] (DEFAULT) [address] [place] [address] WBC (Bld) [#/Vol] 8.16 10*3/uL Normal 3.99-11.19 [facility] Comment on above: Performed By: #### B LDCULT #### [facility] (DEFAULT) [address] [place] [address] CHEM 7 (LYTES,BUN,CREA,GLUC) on 08-02-2024 Anion gap [Moles/Vol] 16 mmol/L 7 - 17 mmol/L [facility] Chloride [Moles/Vol] 105 mmol/L 98 - 10 8 mmol/L [facility] CO2 [Moles/Vol] 22 mmol/L 21 - 31 mmol/L [facility] Creatinine [Mass/Vol] 1.37 mg/dL High 0.50 - 1.20 mg/dL [facility] eGFR, CKD-EPI, Female 39 Low - PINF [facility] Glucose [Mass/Vol] 210 mg/dL High 70 - 179 mg/dL [facility] Osmolality Calc [Osmolality] 299 [facility] Potassium [Moles/Vol] 3.7 mmol/L 3.5 - 5.0 mmol/L [facility] Sodium [Moles/Vol] 139 mmol/L 135 - 145 mmol/L [facility] Urea nitrogen [Mass/Vol] 18 mg/dL 7 - 25 mg/dL [facility] Urea nitrogen/Creatinine [Mass ratio] 13 mg/mg [facility] Anion gap [Moles/Vol] 16 mmol/L Normal 7-17 [facility] Comment on above: Performed By: #### H EMOGC #### [facility] (DEFAULT) [address] [place] [address] Chloride [Moles/Vol] 105 mmol/L Normal 98-108 [facility] Comment on above: Performed By: #### H EMO #### [facility] (DEFAULT) [address] [place] [address] CO2 [Moles/Vol] 22 mmol/L Normal 21-31 [facility] Comment on above: Performed By: #### H EMO #### [facility] (DEFAULT) [address] [place] [address] Creatinine [Mass/Vol] 1.37 mg/dL High 0.50-1.20 [facility] Comment on above: Performed By: #### [facility] #### [facility] (DEFAULT) [address] [address] GFR/1.73 sq M.predicted among non-blacks MDRD (S/P/Bld) [Vol rate/Area] 39 mL/min/{1.73_m2} Low >=60 [facility] Comment on above: Result Comment: Repo rted eGFR is based on the CKD-EPI 2020 equation using creatinine, age, and sex. Performed By: #### H [facility] #### [facility] (DEFAULT) [address] [address] Glucose [Mass/Vol] 210 mg/dL High Nonfastin -179 mg/dL; Fastin-99 [facility] Comment on above: Performed By: #### H EMO #### [facility] (DEFAULT) [address] [address] Osmolality [Osmolality] 299 mosm/kg Normal 278-305 [facility] Comment on above: Performed By: #### H EMOGC #### [facility] (DEFAULT) [address] [address] Potassium [Moles/Vol] 3.7 mmol/L Normal 3.5-5.0 [facility] Comment on above: Performed By: #### H EMOGC #### [facility] (DEFAULT) [address] [place] [address] Sodium [Moles/Vol] 139 mmol/L Normal 135-145 [facility] Comment on above: Performed By: #### H EMOGC #### [facility] (DEFAULT) [address] [place] [address] Urea nitrogen [Mass/Vol] 18 mg/dL Normal 7-25 [facility] Comment on above: Performed By: #### H EMOGC #### [facility] (DEFAULT) [address] [place] [address] Urea nitrogen/Creatinine [Mass ratio] 13 mg/mg Normal [facility] Comment on above: Performed By: #### H EMOGC #### [facility] (DEFAULT) [address] [place] [address] CT ABDOMEN/PELVIS WITH CONTR AST VASCULAR TRAUMAon [...] grade: None. Kidney trauma grade: None. Normal [facility] CT Abdomen and Pelvis W cont rast Seth 08-02-2024 RADIOLOGY RADIOLOGY [facility] CT Abdomen and Pelvis W cont rast IVOrdered By: Edson Head on 08-02-2024 [facility] Work Phone: CT Cervical spine WO contras ton 08-02-2024 Radiology Study observation (narrative) [facility] CT Orbit WO contraston 08-02 Radiology Study observation (narrative) [facility] Carbon dioxide, total [Moles /volume] in Central venous bloodOrdered By: Pieter Morgan on 08-02-2024 CO2 [Moles/Vol] 22.0 mmol/L 21.0-32.0 [facility] Chloride assayOrdered By: Racheal Morgan on 08-02-2024 Chloride [Moles/Vol] 98 mmol/L 98-108 [facility] Emergency Department Summary on 08-02-2024 Emergency Department Summary [facility] Medical Records Department [address] [place] [address] Emergency Department Summary 08/02/24 MR#: [id number] Acct: [id number] Name: LINDSAY ACUNA Rep #: [id number] : [id number] From: Pieter Morgan MD [...] the EMR. states they returned home from [facility] about 1.5-2 weeks ago, and they both had colds. He is better, but she is "on round 2." [facility] Medical History Paroxysmal atrial [...] normal respir (more content not included)... Normal [facility] Eosinophil percentageOrdered By: Pieter Morgan on 08-02-2024 Eosinophils/100 WBC (Bld) 1.0 % 0-5 [facility] Erythrocyte distribution wid th ratioOrdered By: Pieter Morgan on 08-02-2024 Erythrocyte distribution width (RBC) [Ratio] 13.3 % 11.6-14.6 [facility] Erythrocyte distribution wid th standard deviationOrdered By: Pieter Morgan on 08-02-2024 Erythrocyte distribution width (RBC) [Entitic vol] 45.3 fL High 35.1-43.9 [facility] Erythrocyte distribution width (RBC) [Ratio] 45.3 fl High 35.1-43.9 [facility] Estimation of creatinine mackenzie aranceOrdered By: Pieter Morgan on 08-02-2024 Estimated Creatinine Clearance Calc 27.14 ml/min Low 50-250 [facility] GFR/1.73 sq M.predicted lana g non-blacks MDRD (S/P/Bld) [Vol rate/Area]Ordered By: Pieter Morgan on 08-02-2024 Estimated GFR (MDRD) Non-Af Amer 29 Low >60 [facility] Comment on above: mL/min/1.73m2 CKD-EP I Creatinine Equation (2020) Glomerular filtration rate ( GFR) estimation/1.73 sq m using serum, plasma, or whole bOrdered By: Pieter Morgan on 08-02-2024 GFR/1.73 sq M.predicted among non-blacks MDRD (S/P/Bld) [Vol rate/Area] 29 mL/min/{1.73_m2} Low >60 [facility] Comment on above: mL/min/1.73m2 CKD-EP I Creatinine Equation (2020) HEMOGLOBIN A1Con 08-02-2024 Average glucose Estimated from glycated hemoglobin (Bld) [Mass/Vol] 177 mg/dL [facility] HbA1c (Bld) [Mass fraction] 7.8 % High 4.7 - 5.6 % [facility] Interpretation and review of laboratory results Abnormal [facility] Glucose [Mass/Vol] 177 mg/dL Normal [facility] Comment on above: Performed By: #### H [facility] #### [facility] (DEFAULT) [address] [place] [address] Hemoglobin A1C HPLC 7.8 % High 4.7-5.6 [facility] Comment on above: Performed By: #### H EMO #### [facility] (DEFAULT) [address] [place] [address] HEPATIC FUNCTION PANELon Albumin [Mass/Vol] 3.5 g/dL 3.5 - 5.0 g/dL [facility] ALP [Catalytic activity/Vol] 117 U/L 32 - 126 U/L [facility] ALT [Catalytic activity/Vol] 10 U/L 9 - 48 U/L [facility] AST [Catalytic activity/Vol] 17 U/L 10 - 39 U/L [facility] Bilirubin [Mass/Vol] 0.6 mg/dL [facility] Bilirubin.direct [Mass/Vol] 0.1 mg/dL NINF - 0.3 mg/dL [facility] Protein [Mass/Vol] 6.3 g/dL Low 6.4 - 8.3 g/dL [facility] Albumin [Mass/Vol] 3.5 g/dL Normal 3.5-5.0 [facility] Comment on above: Performed By: #### H EMO #### [facility] (DEFAULT) [address] [place] [address] ALP [Catalytic activity/Vol] 117 U/L Normal 32-126 [facility] Comment on above: Performed By: #### H EMO #### [facility] (DEFAULT) [address] [place] [address] ALT [Catalytic activity/Vol] 10 U/L Normal 9-48 [facility] Comment on above: Performed By: #### H EMOGC #### [facility] (DEFAULT) [address] [place] [address] AST [Catalytic activity/Vol] 17 U/L Normal 10-39 [facility] Comment on above: Performed By: #### H EMOGC #### [facility] (DEFAULT) [address] [place] [address] Bilirubin [Mass/Vol] 0.6 mg/dL Normal <1.5 [facility] Comment on above: Performed By: #### H EMOGC #### [facility] (DEFAULT) [address] [place] [address] Bilirubin.indirect [Mass/Vol] 0.1 mg/dL Normal <0.3 [facility] Comment on above: Performed By: #### H EMOGC #### [facility] (DEFAULT) [address] [place] [address] Protein [Mass/Vol] 6.3 g/dL Low 6.4-8.3 [facility] Comment on above: Performed By: #### H EMOGC #### [facility] (DEFAULT) [address] [place] [address] HIGH SENSITIVITY TROPONIN I - SINGLE ORDERon 08-02-2024 Interpretation and review of laboratory results Normal [facility] Troponin I.cardiac High sensitivity method [Mass/Vol] 9 ng/L NINF - 34 ng/L [facility] hs-Troponin I 9 ng/L Normal <34 [facility] Comment on above: Order [...] bottle. Performed By: #### B LDCULT #### [facility] (DEFAULT) [address] [place] [address] Hematocrit Auto (Bld) [Volum e fraction]Ordered By: Pieter Morgan on 08-02-2024 Hematocrit (Bld) [Volume fraction] 42.0 % 37-47 [facility] Hemoglobin measurementOrdere d By: Pieter Morgan on 08-02-2024 Hemoglobin (Bld) [Mass/Vol] 13.8 g/dL 12.0-15.0 [facility] Immature granulocytes/100 WB C Auto (Bld)Ordered By: Pieter Morgan on 08-02-2024 Immature granulocytes/100 WBC (Bld) 0.300 % 0.0-0.9 [facility] Comment on above: IG% - Immature Granu locytes (promyelocytes, myelocytes and metamyelocytes) > 1% indicates that a LEFT SHIFT is Present. Influenza virus A and B and SARS-CoV-2 (COVID-19) and Respiratory syncytial virus RNAOrdered By: Pieter Morgan on 08-02-2024 SARS-CoV-2 (COVID-19) RNA CHUCKY+probe Ql (Unsp spec) [facility] International normalized rat io (INR) calculationOrdered By: Pieter Morgan on 08-02-2024 INR Coag (Bld) [Relative time] 1.1 {INR} [facility] L499.0042on 08-02-2024 Trop T High Sen Normal <=14 [facility] Comment on above: Result Comment: Canc elled via OM: Order cancelled - Patient discharged Performed By: #### L 499.0042 ####[facility] [id number] [place], [address] L499.0043on 08-02-2024 Trop T High Sen Normal <=14 [facility] Comment on above: Result Comment: Canc elled via OM: Order cancelled - Patient discharged Performed By: #### L 499.0043 ####[facility] [address] [place], [address] L501.4021on 08-02-2024 Trop T High Sen 38 ng/L High <=14 [facility] Comment on above: Performed By: #### L 300.4310, L501.4021, L300.3900, L500.2500, L100.0100 ####[facility] [address] [place], [address] LIPID PANEL WITH REFLEX TO Jaiden CONRAD LDLon 08-02-2024 Cholesterol [Mass/Vol] 141 mg/dL NINF - 200 mg/dL [facility] Cholesterol in HDL [Mass/Vol] 38 mg/dL Low 40 - PINF mg/dL [facility] Cholesterol in LDL [Mass/Vol] 84 mg/dL 0 - 99 mg/dL [facility] Cholesterol non HDL [Mass/Vol] 103 mg/dL NINF - 130 mg/dL [facility] Cholesterol.total/Alta sterol in HDL [Mass ratio] 3.7 {ratio} NINF - 4.5 [facility] Triglyceride [Mass/Vol] 96 mg/dL NINF - 150 mg/dL [facility] Calculated LDL Cholesterol 84 mg/dL Normal 0-99 [facility] Comment on above: Result Comment: [<10 0 mg/dL: Optimal] [100-129 mg/dL: Near Optimal] [130-159 mg/dL: Borderline High] [160-189 mg/dL: High] [>189 mg/dL: Very High] Performed By: #### [facility] #### [facility] (DEFAULT) [address] [address] Cholesterol [Mass/Vol] 141 mg/dL Normal <200 [facility] Comment on above: Result Comment: [<20 0 mg/dL: Desirable] [200-239 mg/dL: Borderline High] [>239 mg/dL: High] Performed By: #### H EMO #### [facility] (DEFAULT) [address] [place] [address] Cholesterol in HDL [Mass/Vol] 38 mg/dL Low >=40 [facility] Comment on above: Result Comment: [<40 mg/dL: Low (High Risk)] [>59 mg/dL: High (Low Risk)] Performed By: #### H EMO #### [facility] (DEFAULT) [address] [place] [address] Non HDL Cholesterol 103 mg/dL Normal <130 [facility] Comment on above: Performed By: #### H EMO #### [facility] (DEFAULT) [address] [place] [address] Total Cholesterol/HDL Ratio 3.7 Normal <4.5 [facility] Comment on above: Performed By: #### H EMO #### [facility] (DEFAULT) [address] [place] [address] Triglyceride [Mass/Vol] 96 mg/dL Normal <[address] [facility] Comment on above: Result Comment: [<15 0 mg/dL: Desirable] [150-199 mg/dL: Borderline] [200-499 mg/dL: High] [>500 mg/dL: Very High] Performed By: #### H EMO #### [facility] (DEFAULT) [address] [place] [address] Lymphocytes Auto (Unsp spec) [#/Vol]Ordered By: Pieter Morgan on 08-02-2024 Lymphocytes (Bld) [#/Vol] 1.56 10*3/uL 0.83-4.51 [facility] Lymphocytes/100 WBC Auto (Un sp spec)Ordered By: Pieter Morgan on 08-02-2024 Lymphocytes/100 WBC (Bld) 17.9 % Low 19-41 [facility] M100.678on 08-02-2024 M100.678 Pending SARS-CoV-2 (COVID 19) Negative INFLUENZA A Negative INFLUENZA B Negative RSV PCR Negative Normal [facility] Comment on above: Performed By: #### M 100.678 #### [facility] Laboratory [address] [place], [address] MAGNESIUMon 08-02-2024 Magnesium [Mass/Vol] 1.2 mg/dL Low 1.6 - 2 .6 mg/dL [facility] Magnesium [Mass/Vol] 1.2 mg/dL Low 1.6-2.6 [facility] Comment on above: Performed By: #### H EMO #### U [facility] (DEFAULT) [address] [place] [address] MCV (mean corpuscular volume ) determinationOrdered By: Pieter Morgan on 08-02-2024 MCV (RBC) [Entitic vol] 92.1 fL 81-99 [facility] Mean corpuscular hemoglobin (MCH) determinationOrdered By: Pieter Morgan on 08-02-2024 MCH (RBC) [Entitic mass] 30.3 pg 27.0-32.0 [facility] Mean corpuscular hemoglobin concentration (MCHC) determinationOrdered By: Pieter Morgan on 08-02-2024 MCHC (RBC) [Mass/Vol] 32.9 g/dL 32-36 [facility] Mean platelet volume determi nationOrdered By: Pieter Morgan on 08-02-2024 Platelet mean volume (Bld) [Entitic vol] 10.7 fL 6.2-12.0 [facility] Monocyte percentageOrdered B y: Pieter Morgan on 08-02-2024 Monocytes/100 WBC (Bld) 8.9 % 0-10 [facility] NT-PRO B-TYPE NATRIURETIC PE PTIDEon 08-02-2024 Natriuretic peptide B (Bld) [Mass/Vol] 1115 pg/mL High <=540 [facility] Comment on above: Performed By: #### [facility] #### [facility] (DEFAULT) [address] [place] [address] Neutrophil percentageOrdered By: Pieter Morgan on 08-02-2024 Neutrophils/100 WBC (Bld) 71.4 % High 47-70 [facility] No Panel Informationon 08-02 Radiology Study observation (narrative) [facility] Interpretation and review of laboratory results Abnormal [facility] No Panel InformationOrdered By: Pieter Morgan on 08-02-2024 Troponin T High Sensitivity 38 ng/L High <14 [facility] Nucleated red blood cell per centageOrdered By: Pieter Morgan on 08-02-2024 Nucleated RBC/100 WBC (Bld) [Ratio] 0 % 0-5 [facility] PT,INR,PTTon 08-02-2024 aPTT Coag (PPP) [Time] 26.9 s OS [facility] INR Coag (Bld) [Relative time] 1.1 {INR} 0.9 - 1.1 [facility] Interpretation and review of laboratory results Normal [facility] PT Coag (PPP) [Time] 13.9 s [facility] aP[facility] Coag (Bld) [Time] 26.9 s Normal 24.0-34.3 [facility] Comment on above: Performed By: #### P TPTT ####[facility] (DEFAULT)[address] [place] [address] INR Coag (PPP) [Relative time] 1.1 {INR} Normal 0.9-1.1 [facility] Comment on above: Performed By: #### P TPTT ####[facility] (DEFAULT)[address] [place] [address] PT Coag (PPP) [Time] 13.9 s Normal 11.9-14.2 [facility] Comment on above: Performed By: #### P TPTT ####[facility] (DEFAULT)[address] [place] [address] Partial Thromboplast Timeon 08-02-2024 aPTT Coag (Bld) [Time] 28.4 s Normal 24.1-36.2 [facility] Comment on above: Performed By: #### L 300.4310, L501.4021, L300.3900, L500.2500, L100.0100 #### [facility] Laboratory [address] [place], [address] Platelet countOrdered By: Racheal Morgan on 08-02-2024 Platelets (Bld) [#/Vol] 214 10*3/uL 150-450 [facility] Potassium (Unsp spec) [Mass/ Vol]Ordered By: Pieter Morgan on 08-02-2024 Potassium [Moles/Vol] 4.2 mmol/L 3.3-5.1 [facility] Potassium measurement (mass/ volume)Ordered By: Pieter Morgan on 08-02-2024 Potassium (Unsp spec) [Mass/Vol] 4.2 mmol/L 3.3-5.1 [facility] Prothrombin Time w/INRon INR Coag (PPP) [Relative time] 1.1 {INR} Normal [facility] Comment on above: Performed By: #### L 300.4310, L501.4021, L300.3900, L500.2500, L100.0100 #### [facility] Laboratory [address] [place], [address] PT Coag (PPP) [Time] 14.1 s Normal 11.7-14.9 [facility] Comment on above: Performed By: #### L 300.4310, L501.4021, L300.3900, L500.2500, L100.0100 #### [facility] Laboratory [address] [facility] [place], [address] Prothrombin timeOrdered By: Pieter Morgan on 08-02-2024 PT Coag (PPP) [Time] 14.1 s 11.7-14.9 [facility] RBC Auto (Bld) [#/Vol]Ordere d By: Pieter Morgan on 08-02-2024 RBC (Bld) [#/Vol] 4.56 10*6/uL 4.2-5.4 [facility] SCREEN: MRSA/MSSAon 08-03-19 25 Methicillin Resistant S. Aureus By Pcr Negative Normal Negative [facility] Comment on above: Order [...] by the Clinical Microbiology Laboratory at [facility]. It has not been cleared or approved by the FDA.The laboratory is regulated under CLIA as qualified to perform high-complexity testing. This test is used for clinical purposes. It should not be regarded as investigational or for research. Performed By: #### T YPEC #### [facility] (DEFAULT) [address] [place] [address] Staphylococcus Aureus By Pcr Negative Normal Negative [facility] Comment on above: Order [...] by the Clinical Microbiology Laboratory at [facility]. It has not been cleared or approved by the FDA.The laboratory is regulated under CLIA as qualified to perform high-complexity testing. This test is used for clinical purposes. It should not be regarded as investigational or for research. Performed By: #### T YPEC #### [facility] (DEFAULT) [address] [place] [address] STROKE Brain/Head without Co nton 08-02-2024 STROKE Brain/Head without Cont [facility] [address] [place] [address] 698151 STROKE Brain/Head without Cont MR#: [id number] Acct: [id number] Name: LINDSAY ACUNA Rep #: [id number] : 1945 F 78 From: Kameron Cardoso MD PCP: Dr. Kameron Caruso MD Status: REG ER Study: STROKE Brain/Head without Cont Date of Exam: 0 08/02/24 Exam# [id number] Ordering Dr: Pieter Morgan MD EXAM: CT [...] at 1250 hours. Reading Location: [facility] CC: Dr. Pieter Morgan MD; Dr. Kameron Caruso MD Fur Pointer: Signed Normal [facility] STROKE CTA Head AND Neck W/C onon 08-02-2024 STROKE CTA Head AND Neck W/Con [facility] Services [address] [place] [address] 371971 STROKE CTA Head AND Neck W/Con MR#: [id number] Acct: [id number] Name: LINDSAY ACUNA Rep #: [id number] : 1945 F 78 From: August ibrahim MD PCP: Dr. Kameron Caruso MD Status: REG ER Study: STROKE CTA Head AND Neck W/Con Date of Exam: 0 08/02/24 Exam# [id number] Ordering Dr: Pieter Morgan MD PROCEDURE: STROKE [...] impression: No significant stenosis seen. Reading Location: [place] [address] CC: Dr. Pieter Morgan MD; Dr. Kameron Caruso MD Fur Pointer: Signed Normal [facility] Serum creatinine measurement (mass/volume)Ordered By: Pieter Morgan on 08-02-2024 Creatinine [Mass/Vol] 1.74 mg/dL High 0.70-1.20 [facility] Serum glucose measurement (m ass/volume)Ordered By: Pieter Morgan on 08-02-2024 Glucose [Mass/Vol] 235 mg/dL High 70-99 [facility] Serum or plasma calcium dayna urement (mass/volume)Ordered By: Pieter Morgan on 08-02-2024 Calcium [Mass/Vol] 9.0 mg/dL 7.6-11.0 [facility] Serum or plasma urea nitroge n measurement (mass/volume)Ordered By: Pieter Mrogan on 08-02-2024 Urea nitrogen [Mass/Vol] 20 mg/dL High 4-19 [facility] Sodium levelOrdered By: Evert Morgan on 08-02-2024 Sodium [Moles/Vol] 132 mmol/L Low 133-145 [facility] TSH W/FT4 REFLEXon Interpretation and review of laboratory results [facility] TSH Qn 1.662 m[IU]/L [facility] TSH 1.662 uIU/mL Normal 0.550-4.780 [facility] Comment on above: Performed By: #### X M #### [facility] (DEFAULT) [address] [place] [address] TYPE AND SCREENon 08-02-2024 ABO/RH(D) TYPE Negative [facility] Specimen Expiration 08/05/2024 23:59 [facility] ABO/RH(D) TYPE Negative Normal [facility] Comment on above: Performed By: #### X M #### [facility] (DEFAULT) [address] [place] [address] Specimen Expiration 08/05/2024 23:59 Normal [facility] Comment on above: Performed By: #### X M #### [facility] (DEFAULT) [address] [place] [address] URINALYSIS REFLEX TO CULTURE PERFORMABLEOrdered By: Namita De La Cruz on 08-02-2024 Appearance (U) Clear Clear [facility] Bacteria LM Ql (Urine sed) PRESENT Abnormal ABSENT [facility] Color (U) Yellow Yellow [facility] Epithelial cells.squamous LM Ql (Urine sed) 0-2/hpf 0-2/hpf, 3-5/hpf = 1+ [facility] Glucose Test strip (U) [Mass/Vol] 500 mg/dL Abnormal Negative [facility] Interpretation and review of laboratory results [facility] Ketones (U) [Mass/Vol] Negative Negative [facility] Leukocyte esterase Test strip Ql (U) Moderate Abnormal Negative [facility] Nitrite Ql (U) Negative Negative [facility] pH (U) 6.5 [pH] 5.0 - 7.0 [facility] Protein (U) [Mass/Vol] Negative Negative [facility] RBC (U) [#/Vol] Small Abnormal Negative [facility] RBC LM.HPF (Urine sed) [#/Area] 3-5 Abnormal [facility] Specific gravity (U) [Rel density] 1.022 1.001 - 1.035 [facility] Urobilinogen (U) [Mass/Vol] 0.2 E.U./dL 0.2 E.U/dL, 1.0 E.U/dL [facility] WBC LM.HPF (Urine sed) [#/Area] /[HPF] Abnormal [facility] URINALYSIS REFLEX TO CULTURE PERFORMABLEon 08-02-2024 Appearance (U) Clear Normal Clear [facility] Comment on above: Order Comment: For i ndwelling catheters, specimen collection is acceptable on catheter day 1 and 2 only. ? Performed By: #### U [id number] #### [facility] (DEFAULT) [address] [address] Bacteria PRESENT Abnormal ABSENT [facility] Comment on above: Order Comment: For i ndwelling catheters, specimen collection is acceptable on catheter day 1 and 2 only. ? Performed By: #### U [id number] #### [facility] (DEFAULT) [address] [place] [address] Blood Urine Small Abnormal Negative [facility] Comment on above: Order Comment: For i ndwelling catheters, specimen collection is acceptable on catheter day 1 and 2 only. ? Performed By: #### U [id number] #### [facility] (DEFAULT) [address] [place] [address] Color (U) Yellow Normal Yellow [facility] Comment on above: Order Comment: For i ndwelling catheters, specimen collection is acceptable on catheter day 1 and 2 only. ? Performed By: #### U [id number] #### [facility] (DEFAULT) [address] [place] [address] Glucose Ql (U) 500 mg/dL Abnormal Negative [facility] Comment on above: Order Comment: For i ndwelling catheters, specimen collection is acceptable on catheter day 1 and 2 only. ? Performed By: #### U [id number] #### [facility] (DEFAULT) [address] [place] [address] Ketones Ql (U) Negative Normal Negative [facility] Comment on above: Order Comment: For i ndwelling catheters, specimen collection is acceptable on catheter day 1 and 2 only. ? Performed By: #### U [id number] #### [facility] (DEFAULT) [address] [place] [address] Leukocyte esterase Test strip Ql (U) Moderate Abnormal Negative [facility] Comment on above: Order Comment: For i ndwelling catheters, specimen collection is acceptable on catheter day 1 and 2 only. ? Performed By: #### U [id number] #### [facility] (DEFAULT) [address] [place] [address] Nitrites Urine Negative Normal Negative [facility] Comment on above: Order Comment: For i ndwelling catheters, specimen collection is acceptable on catheter day 1 and 2 only. ? Performed By: #### U [id number] #### [facility] (DEFAULT) [address] [place] [address] pH (U) 6.5 [pH] Normal 5.0-7.0 [facility] Comment on above: Order Comment: For i ndwelling catheters, specimen collection is acceptable on catheter day 1 and 2 only. ? Performed By: #### U [id number] #### [facility] (DEFAULT) [address] [address] Protein Urine Negative Normal Negative [facility] Comment on above: Order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 representative of the average blood glucose level in the last 2-3 month period. Performed By: #### 5 5454-3 ####[facility] [id number] [place] [address] [place] HbA1c (Bld) [Mass fraction] 7.4 % High 4.3-5.[address] [facility] Comment on above: Order Comment: Speci men Type: BLOOD SPECIMENOrdering Facility: [facility] Address: [address] [place] [address] Result Comment: [place] Diabetes Association guidelines indicate that patients with HgbA1c in the range 5.7-6.4% are at increased risk for development of diabetes, and intervention by lifestyle modification may be beneficial. HgbA1c greater or equal to 6.5% is considered diagnostic of diabetes. Performed By: #### 5 5454-3 ####[facility] LABCLIA [id number] [place] [address] [place] Lipid 1996 panelon 4 Cholesterol [Mass/Vol] 156 mg/dL Normal <200 [facility] Comment on above: Order Comment: Speci men Type: BLOOD SPECIMENOrdering Facility: [facility] Address: [address] [place] [address] Result Comment: <200 mg/dL, Desirable 200-239 mg/dL, Borderline high >239 mg/dL, High Performed By: #### 3 016-3, 28254-1, 76722-9 ####[facility] LABCLIA [id number] [address] [place] [facility] Cholesterol in HDL [Mass/Vol] 41 mg/dL Normal >[address] [facility] Comment on above: Order Comment: Deana borjas Type: BLOOD SPECIMENOrdering Facility: [facility] Address: [address] [place] [address] Result Comment: 40-5 9 mg/dL, Acceptable >59 mg/dL, High: Negative risk factor for coronary heart disease <40 mg/dL, Low: Positive risk factor for coronary heart disease Performed By: #### 3 016-3, 65923-1, 71172-4 ####[facility] LABCLIA [id number] [address] [place] Cholesterol in LDL [Mass/Vol] 85 mg/dL Normal <[address] [facility] Comment on above: Order Comment: Deana men Type: BLOOD SPECIMENOrdering Facility: [facility] Address: [address] [place] [address] Result Comment: <100 mg/dL, Optimal 100-129 mg/dL, Near optimal/above optimal 130-159 mg/dL, Borderline high 160-189 mg/dL, High >189 mg/dL, Very high Secondary prevention optimal LDL Cholesterol levels are recommended to be < 70 mg/dL Performed By: #### 3 016-3, 43751-2, 26029-5 ####[facility] LABCLIA [id number] [address] [address] [place] Cholesterol in LDL/Cholesterol in HDL [Mass ratio] 2.07 {ratio} Normal <2.[address] [facility] Comment on above: Order Comment: Speci men Type: BLOOD SPECIMENOrdering Facility: [facility] Address: [address] [place] [address] Result Comment: Refe rence: 1. National Cholesterol Education Program ATP III Guideline At-A-Glance Quick Desk Reference: National Heart, Lung, and Blood [place]. National Institutes of Health. 2001: NIH Publication No. 01-3305. 2. An International Atherosclerosis Society position paper: global recommendations for the management of dyslipidemia: executive summary, Atherosclerosis. 2014: 232(2):410-413. Performed By: #### 3 016-3, 01735-4, 39765-6 ####[facility] LABIA [id number] [place] [address] [place] Cholesterol in VLDL [Mass/Vol] 30 mg/dL High <[address] [facility] Comment on above: Order Comment: Speci men Type: BLOOD SPECIMENOrdering Facility: [facility] Address: [address] [place] [address] Performed By: #### 3 016-3, 43553-2, 89127-4 ####[facility] LABCLIA [id number] [address] [address] [place] Cholesterol non HDL [Mass/Vol] 115 mg/dL Normal <[address] [facility] Comment on above: Order Comment: Speci men Type: BLOOD SPECIMENOrdering Facility: [facility] Address: [address] [place] [address] Result Comment: <130 mg/dL, Optimal 130-159 mg/dL, Near optimal/above optimal 160-189 mg/dL, Borderline high 190-219 mg/dL, High >219 mg/dL, Very high Secondary prevention optimal non HDL Cholesterol levels are recommended to be <100 mg/dL Performed By: #### 3 016-3, 91449-0, 33450-4 ####[facility] LABCLIA [id number] [address] [place] Cholesterol.total/Alta sterol in HDL [Mass ratio] 3.80 {ratio} Normal <5.[address] [facility] Comment on above: Order Comment: Speci men Type: BLOOD SPECIMENOrdering Facility: [facility] Address: [address] [place] [address] Performed By: #### 3 016-3, 73445-1, ####[facility] LABCLIA [id number] [address] [place] FASTING TIME 12 hrs Normal [facility] Comment on above: Order Comment: Speci men Type: BLOOD SPECIMENOrdering Facility: [facility] Address: [address] [place] [address] Performed By: #### 3 016-3, 50362-9, ####[facility] LABCLIA [id number] [address] [place] Triglyceride [Mass/Vol] 148 mg/dL Normal <150 [facility] Comment on above: Order Comment: Speci men Type: BLOOD SPECIMENOrdering Facility: [facility] Address: [address] [place] [address] Result Comment: <150 mg/dL, Normal 150-199 mg/dL, Borderline high 200-499 mg/dL, High >499 mg/dL, Very high Performed By: #### 3 016-3, 50641-1, ####[facility] LABCLIA [id number] [place] [address] [place] TSH SerPl-aCncon 11-27-2023 TSH Qn 1.870 m[IU]/L Normal 0.270-4.[address] [facility] Comment on above: Order Comment: Speci men Type: BLOOD SPECIMENOrdering Facility: [facility] Address: [address] [place] [address] Performed By: #### 3 016-3, 64012-6, 70533-6 ####[facility] LABCLIA [id number] MILY RODRIGUEZDESK [id number] [facility] CNOVon 10-10-2023 CNOV Office Visit (UCWSTR ) ARMANDLINDSAY Veronica ([id number]) 1945 F Date Time Provider Department 10/10/23 7:30 AM DAVID DUPREE [facility] During your visit today, we recorded the following information about you: Temperature Pulse Respiration Blood pressure 97.5 degrees 58/minute 18/minute 128/82 Weight 82.1 kg David Dupree 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 Normal 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 Denies fever or chills Denies malaise or fatigue Denies new lotions, soaps, or medicines States that she was working out in the garden the same day the rash erupted. The history is provided by the patient. No digital media coordinator was used. Rash This is a new [...] mouth daily before breakfast. blood sugar diagnostic (PlaysinoUCH ULTRA TEST) test strip Test Blood Sugar [...] 1 tablet by mouth once daily. lancets (MinekeyTOUCH DELICA PLUS LANCET) 30 gauge Test blood sugars 1 time daily. Dx: Type 2 DM Controlled E11.9. Insulin: no Chlorhexidine Gluconate (PERIDEX) 0.12 % solution Use 15 mL as instructed twice daily. Rinse around mouth for 30 seconds then expectorate blood sugar diagnostic (MinekeyTOUCH ULTRA TEST STRIP) test strip Use to [...] content not included)... Normal [facility] Glucose,Bedsideon 04-16-2019 Glucose [Mass/Vol] 161 mg/dL High 70-100 [facility] Comment on above: Result Comment: Test performed by glucose meter. Results may be 10%-15% lower than serum/plasma values. (CLIA ID [id number]) Performed By: #### B GLU #### [facility] [address] [place] [address] Surgical Pathologyon 019 Surgical Pathology [id number] [facility] PATHOLOGY AND LABORATORY MEDICINE [address] [place] [address] FINAL SURGICAL PATHOLOGY REPORT ___ NAME: LINDSAY ACUNA : 1945 73 Y F BILLING NO.: [id number] LOCATION: 1XEO PROCEDURE 01/09/2019 DATE: SURGEON: SANTIAGO [...] characteristics determined by the clinical laboratories of [facility]. They have not been cleared by [...] negativity on decalcified specimens. Professional Performing Location: [address] [address]. DEPARTMENT OF PATHOLOGY AND LABORATORY MEDICINE [place], [place] [address] Normal [facility] .Auto Diffon 08-22-2018 Ammonia mass conc (P) 1.10 10 3/mcL High 0.15-1.00 [facility] ([place] Comment on above: Performed By: #### B MP, GFR #### [place] [address] Basophils #/vol (Bld) 0.00 10 3/mcL Normal 0.00-0.19 [facility] ([place]) Comment on above: Performed By: #### B MP, GFR #### [address] [address] Basophils/100 WBC (Bld) 0.3 % Normal 0.0-2.5 A [facility] ([place]) Comment on above: Performed By: #### B MP, GFR #### [address] [address] Eosinophils #/vol (Bld) 0.00 10 3/mcL Normal 0.00-0.40 [facility] ([place] Comment on above: Performed By: #### B MP, GFR #### [address] [address] Eosinophils/100 WBC (Bld) 0.2 % Normal 0.0-7.0 [facility] ([place] Comment on above: Performed By: #### B MP, GFR #### [address] [address] Lymphocytes #/vol (Bld) 2.20 10 3/mcL Normal 0.77-3.85 [facility] ([place] Comment on above: Performed By: #### B MP, GFR #### [address] [address] Lymphocytes/100 WBC (Bld) 20.5 % Normal 10.0-50.0 [facility] ([place] Comment on above: Performed By: #### B MP, GFR #### [address] [address] Monocytes/100 WBC (Bld) 10.5 % Normal 1.7-13.0 A [facility] ([place] Comment on above: Performed By: #### B MP, GFR #### [address] [address] Neutrophils/100 WBC (Bld) 68.5 % Normal 37.0-80.0 [facility] ([place] Comment on above: Performed By: #### B MP, GFR #### [address] [address] .GFRon 08-22-2018 GFR Non- 33 ml/min/1.73sqm Normal [facility] ([place] Comment on above: Result Comment: GFR Population [...] Performed By: #### B MP, GFR #### [place] [address] #### DORY LOPEZ, ANEU #### [address] [address] GFR 40 ml/min/1.73sqm Normal [facility] ([place] Comment on above: Result Comment: GFR Population [...] Performed By: #### B MP, GFR #### [place] [address] #### JOHN, ADCAROL, ANEU #### [address] [address] .NEUABSon 08-22-2018 Neutrophils #/vol (Bld) 7.40 10 3/mcL High 2.85-6.16 [facility] ([place] Comment on above: Performed By: #### B MP, GFR #### [place] [address] BMPon 08-22-2018 Calcium mass conc 8.3 mg/dL Low 8.4-10.2 [facility] ([place] Comment on above: Performed By: #### B MP, GFR #### [place] [address] #### CBC, ADIFF, ANEU #### [address] [address] Chloride molar conc 104 mmol/L Normal 98-107 [facility] ([place] Comment on above: Performed By: #### B MP, GFR #### [place] [address] #### CBC, ADIFF, ANEU #### [address] [address] CO2 molar conc 25 mmol/L Normal 23-31 [facility] ([place] Comment on above: Performed By: #### B MP, GFR #### [place] [address] #### CBC, ADIFF, ANEU #### [address] [address] Creatinine mass conc 1.53 mg/dL High 0.55-1.02 [facility] ([place] Comment on above: Performed By: #### B MP, GFR #### [place] [address] #### CBC, ADIFF, ANEU #### [address] [address] Electrolyte Balance 10.0 mEq/L Normal [facility] ([place] Comment on above: Performed By: #### B MP, GFR #### [place] [address] #### CBC, ADIFF, ANEU #### [address] [address] Glucose mass conc 149 mg/dL High 83-110 [facility] ([place] Comment on above: Performed By: #### B MP, GFR #### [address] [address] #### CBC, ADIFF, ANEU #### [address] [address] Potassium molar conc 4.3 mmol/L Normal 3.5-5.1 [facility] ([place] Comment on above: Performed By: #### B MP, GFR #### [place] [address] #### CBC, ADIFF, ANEU #### [address] [address] Sodium molar conc 139 mmol/L Normal 136-145 [facility] ([place] Comment on above: Performed By: #### B MP, GFR #### [place] [address] #### CBC, ADIFF, ANEU #### [address] [address] Urea nitrogen mass conc 32 mg/dL High 7-18 A [facility] ([place] Comment on above: Performed By: #### B MP, GFR #### [place] [address] #### CBC, ADIFF, ANEU #### [address] [address] Urea nitrogen/Creatinine mass ratio 21 ratio Normal 7-27 [facility] ([place] Comment on above: Performed By: #### B MP, GFR #### [place] [address] #### CBC, ADIFF, ANEU #### [address] [address] CBCon 08-22-2018 Erythrocyte distribution width Ratio (RBC) 12.6 % Normal 11.5-14.5 [facility] ([place] Comment on above: Performed By: #### B MP, GFR #### [place] [address] Hematocrit Volume Fraction (Bld) 27.5 % Low 37.0-47.0 [facility] ([place] Comment on above: Performed By: #### B MP, GFR #### [address] [address] Hemoglobin mass conc (Bld) 9.2 G/dL Low 12.0-16.0 [facility] ([place] Comment on above: Performed By: #### B MP, GFR #### [address] [address] MCH Entitic mass (RBC) 30.1 pg Normal 27.0-31.2 [facility] [place] Comment on above: Performed By: #### B MP, GFR #### [address] [address] MCHC mass conc (RBC) 33.5 G/dL Normal 33.0-37.0 [facility] ([place] Comment on above: Performed By: #### B MP, GFR #### [address] [address] MCV Entitic volume (RBC) 89.8 fL Normal 80.0-94.0 [facility] ([place] Comment on above: Performed By: #### B MP, GFR #### [address] [address] Platelet mean volume Entitic volume (Bld) 9.3 fL Normal 7.4-10.4 [facility] ([place] Comment on above: Performed By: #### B MP, GFR #### [address] [address] Platelets #/vol (Bld) 224 10 3/mcL Normal 130-400 A [facility] ([place] Comment on above: Performed By: #### B MP, GFR #### [address] [address] RBC #/vol (Bld) 3.06 10 6/mcL Low 4.20-5.40 [facility] ([place] Comment on above: Performed By: #### B MP, GFR #### [address] [address] WBC #/vol (Bld) 10.80 10 3/mcL Normal 4.60-10.80 [facility] ([place] Comment on above: Performed By: #### B MP, GFR #### [place] [address] XR KNEE 1 OR 2 VIEWS RIGHTon [...] Sign Date: 08/21/2018 9:55:37 AM Normal [facility] ([place] CT KNEE W/O CONTRAST RIGHTon 08-09-2018 CT [...] Sign Date: 08/09/2018 5:04:12 PM Normal [facility] ([place]) .Auto Diffon 08-06-2018 Ammonia mass conc (P) 0.80 10 3/mcL Normal 0.15-1.00 [facility] ([place] Comment on above: Performed By: #### C BC, ADIFF, ANEU #### [address] [address] #### A1C #### [address] [address] Basophils #/vol (Bld) 0.10 10 3/mcL Normal 0.00-0.19 [facility] ([place] Comment on above: Performed By: #### C BC, ADIFF, ANEU #### [address] [address] #### A1C #### [address] [address] Basophils/100 WBC (Bld) 0.6 % Normal 0.0-2.5 A [facility] ([place] Comment on above: Performed By: #### C SARAH, ADIFF, ANEU #### [address] [address] #### A1C #### [address] [address] Eosinophils #/vol (Bld) 0.20 10 3/mcL Normal 0.00-0.40 [facility] ([place] Comment on above: Performed By: #### C SARAH ADIFF, ANEU #### [address] [address] #### A1C #### [address] [address] Eosinophils/100 WBC (Bld) 1.7 % Normal 0.0-7.0 [facility] ([place] Comment on above: Performed By: #### C BC, ADIFF, ANEU #### [address] [address] #### A1C #### [address] [address] Lymphocytes #/vol (Bld) 1.90 10 3/mcL Normal 0.77-3.85 [facility] ([place] Comment on above: Performed By: #### C BC, ADIFF, ANEU #### [address] [address] #### A1C #### [address] [address] Lymphocytes/100 WBC (Bld) 20.8 % Normal 10.0-50.0 [facility] ([place] Comment on above: Performed By: #### C BC, ADIFF, ANEU #### [address] [address] #### A1C #### [address] [address] Monocytes/100 WBC (Bld) 9.3 % Normal 1.7-13.0 A [facility] ([place] Comment on above: Performed By: #### C BC, ADIFF, ANEU #### [address] [address] #### A1C #### [address] [address] Neutrophils/100 WBC (Bld) 67.6 % Normal 37.0-80.0 [facility] ([place] Comment on above: Performed By: #### C BC, ADIFF, ANEU #### [address] [address] #### A1C #### [address] [address] .GFRon 08-06-2018 GFR 51 ml/min/1.73sqm Normal [facility] ([place] Comment on above: Result Comment: GFR Population [...] By: #### B MP, GFR #### [address] [address] GFR Non- 42 ml/min/1.73sqm Normal [facility] ([place] Comment on above: Result Comment: GFR Population [...] By: #### B MP, GFR #### [address] [address] .NEUABSon 08-06-2018 Neutrophils #/vol (Bld) 6.20 10 3/mcL High 2.85-6.16 [facility] ([place] Comment on above: Performed By: #### C BCDORY, ANEU #### [address] [address] #### A1C #### [address] [address] A1Con 08-06-2018 Hemoglobin A1c/Hemoglobin.total mass fraction (Bld) 7.9 % High 4.5-6.2 [facility] ([place] Comment on above: Performed By: #### C BC, ADIFF, ANEU #### [address] [address] #### A1C #### [address] [address] BMPon 08-06-2018 Calcium mass conc 9.2 mg/dL Normal 8.4-10.2 [facility] ([place] Comment on above: Performed By: #### B MP, GFR #### [place] [address] Chloride molar conc 105 mmol/L Normal 98-107 [facility] ([place] Comment on above: Performed By: #### B MP, GFR #### [address] [address] CO2 molar conc 27 mmol/L Normal 23-31 [facility] ([place] Comment on above: Performed By: #### B MP, GFR #### [address] [address] Creatinine mass conc 1.25 mg/dL High 0.55-1.02 [facility] ([place] Comment on above: Performed By: #### B MP, GFR #### [address] [address] Electrolyte Balance 11.0 mEq/L Normal [facility] ([place] Comment on above: Performed By: #### B MP, GFR #### [address] [address] Glucose mass conc 70 mg/dL Low 83-110 [facility] ([place] Comment on above: Performed By: #### B MP, GFR #### [address] [address] Potassium molar conc 5.0 mmol/L Normal 3.5-5.1 [facility] ([place] Comment on above: Performed By: #### B MP, GFR #### [address] [address] Sodium molar conc 143 mmol/L Normal 136-145 [facility] ([place] Comment on above: Performed By: #### B MP, GFR #### [address] [address] Urea nitrogen mass conc 26 mg/dL High 7-18 A [facility] ([place] Comment on above: Performed By: #### B MP, GFR #### [address] [address] Urea nitrogen/Creatinine mass ratio 21 ratio Normal 7-27 [facility] ([place] Comment on above: Performed By: #### B MP, GFR #### [address] [address] CBCon 08-06-2018 Erythrocyte distribution width Ratio (RBC) 12.2 % Normal 11.5-14.5 [facility] ([place] Comment on above: Performed By: #### C DORY SMITH, ANEU #### [address] [address] #### A1C #### [address] [address] Hematocrit Volume Fraction (Bld) 34.6 % Low 37.0-47.0 [facility] ([place] Comment on above: Performed By: #### C BC ADIFF, ANEU #### [address] [address] #### A1C #### [place] [address] Hemoglobin mass conc (Bld) 11.7 G/dL Low 12.0-16.0 [facility] ([place] Comment on above: Performed By: #### C DORY SMITH, ANEU #### [place] [address] #### A1C #### [place] [address] MCH Entitic mass (RBC) 30.6 pg Normal 27.0-31.2 [facility] [place] Comment on above: Performed By: #### C DORY SMITH, ANEU #### [place] [address] #### A1C #### [place] [address] MCHC mass conc (RBC) 33.7 G/dL Normal 33.0-37.0 [facility] ([place] Comment on above: Performed By: #### C BC ADIFF, ANEU #### [address] [address] #### A1C #### [address] [address] MCV Entitic volume (RBC) 90.9 fL Normal 80.0-94.0 [facility] ([place] Comment on above: Performed By: #### C BC ADIFF, ANEU #### [place] [id number] #### A1C #### [address] [address] Platelet mean volume Entitic volume (Bld) 8.8 fL Normal 7.4-10.4 [facility] ([place] Comment on above: Performed By: #### C BC ADIFF, ANEU #### [address] [address] #### A1C #### [address] [address] Platelets #/vol (Bld) 355 10 3/mcL Normal 130-400 A [facility] ([place] Comment on above: Performed By: #### C BCDORY, ANEU #### [place] [address] #### A1C #### [place] [address] RBC #/vol (Bld) 3.81 10 6/mcL Low 4.20-5.40 [facility] ([place] Comment on above: Performed By: #### C BC ADIFF, ANEU #### [address] [address] #### A1C #### [address] [address] WBC #/vol (Bld) 9.20 10 3/mcL Normal 4.60-10.80 [facility] ([place] Comment on above: Performed By: #### C BC ADIFF, ANEU #### [place] [id number] #### A1C #### [place] [address] Vital Signs Date Time Vital Sign Value Performing Clinician Facility 10-02-2024 09: Body height 167.[address] Kameron Caruso MD Work Phone: [facility] 10-02-2024 09: Diastolic blood pressure 71 mm[Hg] Dr. Kameron Caruso MD Work Phone: [facility] 10-02-2024 09:21-0400 Heart rate 77 /min Dr. Kameron Caruso MD Work Phone: [facility] 10-02-2024 09:21-0400 Respiratory rate 16 /min Dr. Kameron Caruso MD Work Phone: [facility] 10-02-2024 09:21-0400 Systolic blood pressure 111 mm[Hg] Dr. Kameron Caruso MD Work Phone: [facility] 09-09-2024 09:02-0400 Heart rate 100 /min SILVINO SCHEATZLE DO [facility] 09-09-2024 07:58-0400 Blood Pressure Cuff Size SILVINO SCHEATZLE DO [facility] 09-09-2024 07:58-0400 Blood Pressure Location SILVNIO SCHEATZLE DO [facility] 09-09-2024 07:58-0400 Blood Pressure Method SILVINO SCHEATZLE [facility] 09-09-2024 07:58-0400 Body temperature 96.8 [degF] SILVINO SCHEATZLE [facility] 09-09-2024 07:58-0400 Diastolic Blood Pressure Non-Invasive 78 mm[Hg] SILVINO SCHEATZLE DO [facility] 09-09-2024 07:58-0400 Heart rate 110 /min SILVINO SCHEATZLE DO [facility] 09-09-2024 07:58-0400 Reason For Taking VItal Signs SILVINO SCHEATZLE DO [facility] 09-09-2024 07:58-0400 Respiratory rate 16 /min SILVINO SCHEATZLE DO [facility] 09-09-2024 07:58-0400 Systolic Blood Pressure Non-Invasive 122 mm[Hg] SILVINO SCHEATZLE DO [facility] 09-09-2024 02:45-0400 Body temperature 97.7 [degF] SILVINO CIDATZLE DO [facility] 09-09-2024 02:45-0400 Diastolic Blood Pressure Non-Invasive 60 mm[Hg] SILVINO PALAKATZLE DO [facility] 09-09-2024 02:45-0400 Heart rate 92 /min SILVINO CIDATZLE DO [facility] 09-09-2024 02:45-0400 Respiratory rate 16 /min SILVINO CIDATZLE DO [facility] 09-09-2024 02:45-0400 Systolic Blood Pressure Non-Invasive 108 mm[Hg] SILVINO PALAKATZLE DO [facility] 09-08-2024 22:28-0400 Blood Pressure Cuff Size SILVINO CIDATZLE DO [facility] 09-08-2024 22:28-0400 Blood Pressure Location SILVINO CIDATZLE DO [facility] 09-08-2024 22:28-0400 Blood Pressure Method SILVINO CIDATZLE DO [facility] 09-08-2024 22:28-0400 Body temperature 97.88 [degF] SILVINO CIDATZLE DO [facility] 09-08-2024 22:28-0400 Diastolic Blood Pressure Non-Invasive 54 mm[Hg] SILVINO CIDATZLE DO [facility] 09-08-2024 22:28-0400 Heart rate 92 /min S[facility]INO CIDATZSHITAL DO [facility] 09-08-2024 22:28-0400 Reason For Taking VItal Signs SILVINO CIDATZLE DO [facility] 09-08-2024 22:28-0400 Respiratory rate 16 /min SILVINO CIDATZLE DO [facility] 09-08-2024 22:28-0400 Systolic Blood Pressure Non-Invasive 118 mm[Hg] SILVINO CIDATZLE DO [facility] 09-08-2024 18:21-0400 Heart rate 90 /min SILVINO CIDATZLE DO [facility] 09-08-2024 09:08-0400 Blood Pressure Cuff Size SILVINO CIDATZLE DO [facility] 09-08-2024 09:08-0400 Blood Pressure Location SILVINO CIDATZSHITAL DO [facility] 09-08-2024 09:08-0400 Blood Pressure Method S[facility]INO CIDATZSHITAL DO [facility] 09-08-2024 09:08-0400 Heart rate 114 /min SILVINO CIDATZLE DO [facility] 09-08-2024 09:08-0400 Reason For Taking VItal Signs SILVINO CIDATZLE DO [facility] 09-04-2024 10:54-0400 Body temperature 96.62 [degF] SILVINO CIDATZLE DO [facility] 09-03-2024 00:26-0400 Body temperature 97.34 [degF] SILVINO CIDATZLE DO [facility] 08-30-2024 22:54-0400 Body temperature 98.06 [degF] SILVINO CIDATZLE DO [facility] 08-26-2024 10:36-0400 Body weight 76 kg SILVINO HA DO [facility] 08-19-2024 06:00-0400 Body weight 75.3 kg SILVINO HA DO [facility] 08-15-2024 14:27-0400 Body height 170.2 cm SILVINO HA DO [facility] 08-15-2024 14:27-0400 Body weight 75.4 kg SILVINO HA DO [facility] 08-15-2024 14:27-0400 Body weight 26.03 kg/m2 SILVINO HA DO [facility] 08-15-2024 09:02-0400 Diastolic blood pressure 69 mm[Hg] Prema Ramos MD Work Phone: [facility] 08-15-2024 09:02-0400 Systolic blood pressure 128 mm[Hg] Prema Ramos MD Work Phone: [facility] 08-15-2024 07:28-0400 Heart rate 86 /min Prema Ramos MD Work Phone: [facility] 08-15-2024 07:18-0400 Body temperature 97.3 [degF] Prema Ramos MD Work Phone: [facility] 08-15-2024 07:18-0400 Respiratory rate 23 /min Prema Ramos MD Work Phone: [facility] 08-15-2024 07:18-0400 SaO2% (BldA) [Mass fraction] 95 % Prema Ramos MD Work Phone: [facility] 08-05-2024 08:00-0400 Body height 170.2 cm Prema Ramos MD Work Phone: [facility] 08-05-2024 08:00-0400 Body mass index (BMI) [Ratio] 26.94 kg/m2 Prema Ramos MD Work Phone: [facility] 08-05-2024 08:00-0400 Body weight 78.02 kg Prema Ramos MD Work Phone: [facility] 08-02-2024 13:52-0400 Body temperature 98 [degF] Dr. Kameron Caruso MD Work Phone: 4(631)725-851729 [place] [address] 08-02-2024 13:52-0400 Diastolic blood pressure 91 mm[Hg] Dr. Kameron Caruso MD Work Phone: 2(149)900-869529 [place] [address] 08-02-2024 13:52-0400 Heart rate 109 /min Dr. Kameron Caruso MD Work Phone: 6(511)290-258729 [place] [address] 08-02-2024 13:52-0400 Respiratory rate 16 /min Dr. Kameron Caruso MD Work Phone: 0(129)864-598829 [place] [address] 08-02-2024 13:52-0400 SaO2% (BldA) [Mass fraction] 98 % Dr. Kameron Caruso MD Work Phone: 3(149)450-555429 [place] [address] 08-02-2024 13:52-0400 Systolic blood pressure 153 mm[Hg] Dr. Kameron Caruso MD Work Phone: 5(474)425-686629 [place] [address] 08-02-2024 12:46-0400 Body height 167.[address] Kameron Caruso MD Work Phone: 0(501)900-551229 [place] [address] 08-02-2024 12:46-0400 Body mass index (BMI) [Ratio] 26.6 kg/m2 Dr. Kameron Caruso MD Work Phone: 7(953)386-662729 [place] [address] 08-02-2024 12:46-0400 Body weight [address] Kameron Caruso MD Work Phone: 5(600)736-414329 [place] [address] 06-26-2024 09:39-0500 Body mass index (BMI) [Ratio] 27.25 kg/m2 Emma Sotomayor APRN.CNP Work Phone: [facility] 06-26-2024 09:39-0500 Body weight 78.93 kg Emma Tannhof SPUN PASTE MACHINE OPERATOR.PLANT TECHNICIAN/CONTROL ROOM OPERATOR Work Phone: [facility] 06-26-2024 09:39-0500 Diastolic blood pressure 88 mm[Hg] Emma Tannhof SPUN PASTE MACHINE OPERATOR.PLANT TECHNICIAN/CONTROL ROOM OPERATOR Work Phone: [facility] 06-26-2024 09:39-0500 Heart rate 93 /min Emma Tannhof SPUN PASTE MACHINE OPERATOR.PLANT TECHNICIAN/CONTROL ROOM OPERATOR Work Phone: [facility] 06-26-2024 09:39-0500 Respiratory rate 16 /min Emma Tannhof SPUN PASTE MACHINE OPERATOR.PLANT TECHNICIAN/CONTROL ROOM OPERATOR Work Phone: [facility] 06-26-2024 09:39-0500 SaO2% (BldA) [Mass fraction] 98 % Emma Tannhof SPUN PASTE MACHINE OPERATOR.PLANT TECHNICIAN/CONTROL ROOM OPERATOR Work Phone: [facility] 06-26-2024 09:39-0500 Systolic blood pressure 144 mm[Hg] Emma Tannhof SPUN PASTE MACHINE OPERATOR.PLANT TECHNICIAN/CONTROL ROOM OPERATOR Work Phone: [facility] 05-31-2024 08:56-0500 Diastolic blood pressure 84 mm[Hg] Kameron Caruso MD Work Phone: [facility] 05-31-2024 08:56-0500 Systolic blood pressure 136 mm[Hg] Kameron Caruso MD Work Phone: [facility] 05-31-2024 08:47-0500 Body mass index (BMI) [Ratio] 27.28 kg/m2 Kameron Caruso MD Work Phone: [facility] 05-31-2024 08:47-0500 Body weight 79 kg Kameron Caruso MD Work Phone: [facility] 05-31-2024 08:47-0500 Heart rate 100 /min Kameron Caruso MD Work Phone: [facility] 05-31-2024 08:47-0500 Respiratory rate 18 /min Kameron Caruso MD Work Phone: [facility] 11-28-2023 09:42-0400 Diastolic blood pressure 78 mm[Hg] Kameron Caruso MD Work Phone: [facility] 11-28-2023 09:42-0400 Systolic blood pressure 142 mm[Hg] Kameron Caruso MD Work Phone: [facility] 11-28-2023 09:41-0400 Body mass index (BMI) [Ratio] 27.82 kg/m2 Kameron Caruso MD Work Phone: [facility] 11-28-2023 09:41-0400 Body weight 80.56 kg Kameron Caruso MD Work Phone: [facility] 11-28-2023 09:41-0400 Heart rate 68 /min Kameron Caruso MD Work Phone: [facility] 11-28-2023 09:41-0400 Respiratory rate 18 /min Kameron Caruso MD Work Phone: [facility] 10-10-2023 07:31-0400 Body mass index (BMI) [Ratio] 28.35 kg/m2 David Pendyi SPUN PASTE MACHINE OPERATOR.PLANT TECHNICIAN/CONTROL ROOM OPERATOR Work Phone: [facility] 10-10-2023 07:31-0400 Body temperature 97.5 [degF] David Claudyleantonia SPUN PASTE MACHINE OPERATOR.PLANT TECHNICIAN/CONTROL ROOM OPERATOR Work Phone: [facility] 10-10-2023 07:31-0400 Body weight 82.1 kg Davidjocelyne Dupree SPUN PASTE MACHINE OPERATOR.PLANT TECHNICIAN/CONTROL ROOM OPERATOR Work Phone: [facility] 10-10-2023 07:31-0400 Diastolic blood pressure 82 mm[Hg] David Pendleantonia SPUN PASTE MACHINE OPERATOR.PLANT TECHNICIAN/CONTROL ROOM OPERATOR Work Phone: [facility] 10-10-2023 07:31-0400 Heart rate 58 /min David Dupree SPUN PASTE MACHINE OPERATOR.PLANT TECHNICIAN/CONTROL ROOM OPERATOR Work Phone: [facility] 10-10-2023 07:31-0400 Respiratory rate 18 /min David Pendyi SPUN PASTE MACHINE OPERATOR.PLANT TECHNICIAN/CONTROL ROOM OPERATOR Work Phone: [facility] 10-10-2023 07:31-0400 SaO2% (BldA) [Mass fraction] 100 % David Dupree SPUN PASTE MACHINE OPERATOR.PLANT TECHNICIAN/CONTROL ROOM OPERATOR Work Phone: [facility] 10-10-2023 07:31-0400 Systolic blood pressure 128 mm[Hg] David Dupree SPUN PASTE MACHINE OPERATOR.PLANT TECHNICIAN/CONTROL ROOM OPERATOR Work Phone: [facility] 09-29-2023 14:14-0400 Body mass index (BMI) [Ratio] 29 kg/m2 Radha Levine SPUN PASTE MACHINE OPERATOR.PLANT TECHNICIAN/CONTROL ROOM OPERATOR Work Phone: [facility] 09-29-2023 14:14-0400 Body temperature 97.81 [degF] Radha Levine SPUN PASTE MACHINE OPERATOR.PLANT TECHNICIAN/CONTROL ROOM OPERATOR Work Phone: [facility] 09-29-2023 14:14-0400 Body weight 84 kg Radha Levine SPUN PASTE MACHINE OPERATOR.PLANT TECHNICIAN/CONTROL ROOM OPERATOR Work Phone: [facility] 09-29-2023 14:14-0400 Diastolic blood pressure 91 mm[Hg] Radha Levine SPUN PASTE MACHINE OPERATOR.PLANT TECHNICIAN/CONTROL ROOM OPERATOR Work Phone: [facility] 09-29-2023 14:14-0400 Heart rate 54 /min Radha Levine SPUN PASTE MACHINE OPERATOR.PLANT TECHNICIAN/CONTROL ROOM OPERATOR Work Phone: [facility] 09-29-2023 14:14-0400 Respiratory rate 18 /min Radha Levine SPUN PASTE MACHINE OPERATOR.PLANT TECHNICIAN/CONTROL ROOM OPERATOR Work Phone: [facility] 09-29-2023 14:14-0400 SaO2% (BldA) [Mass fraction] 99 % Radha Levine SPUN PASTE MACHINE OPERATOR.PLANT TECHNICIAN/CONTROL ROOM OPERATOR Work Phone: [facility] 09-29-2023 14:14-0400 Systolic blood pressure 148 mm[Hg] Radha Levine SPUN PASTE MACHINE OPERATOR.PLANT TECHNICIAN/CONTROL ROOM OPERATOR Work Phone: [facility] 05-27-2022 09:42-0500 Body weight 83.83 kg Kameron Caruso MD Work Phone: [facility] 05-27-2022 09:42-0500 Diastolic blood pressure 84 mm[Hg] Kameron Caruso MD Work Phone: [facility] 05-27-2022 09:42-0500 Heart rate 68 /min Kameron Caruso MD Work Phone: [facility] 05-27-2022 09:42-0500 Respiratory rate 16 /min Kameron Caruso MD Work Phone: [facility] 05-27-2022 09:42-0500 Systolic blood pressure 136 mm[Hg] Kameron Caruso MD Work Phone: [facility] 03-02-2022 10:52-0400 Diastolic blood pressure 76 mm[Hg] Emma Tannhof SPUN PASTE MACHINE OPERATOR.PLANT TECHNICIAN/CONTROL ROOM OPERATOR Work Phone: [facility] 03-02-2022 10:52-0400 Heart rate 92 /min Emma Tannhof SPUN PASTE MACHINE OPERATOR.PLANT TECHNICIAN/CONTROL ROOM OPERATOR Work Phone: [facility] 03-02-2022 10:52-0400 Respiratory rate 18 /min Emma Tannhof SPUN PASTE MACHINE OPERATOR.PLANT TECHNICIAN/CONTROL ROOM OPERATOR Work Phone: [facility] 03-02-2022 10:52-0400 Systolic blood pressure 140 mm[Hg] Emma Tannhof SPUN PASTE MACHINE OPERATOR.PLANT TECHNICIAN/CONTROL ROOM OPERATOR Work Phone: [facility] 11-23-2021 09:39-0400 Body weight 83.1 kg Kameron Caruso MD Work Phone: [facility] 11-23-2021 09:39-0400 Diastolic blood pressure 80 mm[Hg] Kameron Caruso MD Work Phone: [facility] 11-23-2021 09:39-0400 Heart rate 84 /min Kameron Caruso MD Work Phone: [facility] 11-23-2021 09:39-0400 Respiratory rate 16 /min Kameron Caruso MD Work Phone: [facility] 11-23-2021 09:39-0400 Systolic blood pressure 138 mm[Hg] Kameron Caruso MD Work Phone: [facility] 10-16-2019 10:09-0400 BP Diastolic 72 mm[Hg] Santiago [place], [place] 10-16-2019 10:09-0400 BP Systolic 144 mm[Hg] Santiago Miller [facility] , [place] 10-16-2019 10:09-0400 Pulse (Heart Rate) 62 /min Santiago Miller [facility], [place] 10-16-2019 10:09-0400 Pulse Oximetry 98 % Santiago Miller [facility] , [place] 10-16-2019 10:09-0400 Respiratory Rate 18 /min Santiago Miller [facility] , [place] 10-16-2019 09:15-0400 BMI (Body Mass Index) 29.44 kg/m2 Santiago Miller [facility], [place] 10-16-2019 09:15-0400 Body Temperature 97.81 [degF] Santiago Miller [facility], [place] 10-16-2019 09:15-0400 Body weight 85.28 kg Santiago Miller [facility] , [place] 10-16-2019 09:15-0400 Height 170.2 cm Santiago Miller [facility] , [place] 01-09-2019 12:06-0400 BP Diastolic 73 mm[Hg] [facility] , [place] 01-09-2019 12:06-0400 BP Systolic 121 mm[Hg] [facility] [place] 01-09-2019 11:50-0400 Pulse (Heart Rate) 64 /min Santiago Miller [facility], [place] 01-09-2019 11:50-0400 Pulse Oximetry 100 % Santiago Miller [facility] , [place] 01-09-2019 11:50-0400 Respiratory Rate 18 /min Santiago Miller [facility], [place] 01-09-2019 10:28-0400 BMI (Body Mass Index) 28.82 kg/m2 Santiago Miller [facility], [place] 01-09-2019 10:28-0400 Body weight 83.46 kg Santiago Miller [facility] , [place] 01-09-2019 10:28-0400 Height 170.2 cm Santiago Miller [facility] , [place] 01-09-2019 10:27-0400 Body Temperature 97.5 [degF] Santiago Miller [place], [place] Encounters Encounter Date Encounter Type Care Provider Facility Start: 03-11-2025 ambulatory Efewongbe Oleghe OLS Fa cility:[facility] Start: 03-04-2025 ambulatory Efewongbe Oleghe OLS Fa cility:[facility] Start: 02-25-2025 ambulatory Efewongbe Oleghe OLS Fa cility:[facility] Start: 02-18-2025 ambulatory Efewongbe Oleghe OLS Fa cility:[facility] Start: 02-18-2025 Safia Forde L - [place] Start: 02-11-2025 ambulatory Efewongbe Oleghe OLS Fa cility:[facility] Start: 02-11-2025 Safia Ruelas MD [facility] - [place] Start: 02-04-2025 ambulatory Efewongbe Oleghe OLS Fa cility:[facility] Start: 02-04-2025 Safia Forde L - [place] Start: 01-28-2025 ambulatory Efewongbe Oleghe OLS Fa cility:[facility] Start: 01-28-2025 Safia Ruelas MD [facility] - [place] Start: 01-21-2025 ambulatory Efewongbe Oleghe OLS Fa cility:[facility] Start: 01-21-2025 Safia Forde L - [place] Start: 01-14-2025 ambulatory Efewongbe Oleghe OLS Fa cility:[facility] Start: 01-14-2025 Safia Forde L - [place] Start: 01-07-2025 End: 01-07-[address] Kameron Caruso MD Work Phone: [facility] - [place] Start: 01-07-2025 End: 01-07-2025 Safia FordeVeronica Forde [place] Start: 01-07-2025 End: 01-07-2025 ambulatory Efewongbe Oleghe OLS Facility:[facility] Start: 12-31-2024 End: 12-31-[address] Kameron Caruso MD Work Phone: [facility] Start: 12-31-2024 End: 12-31-2024 Dr. Safia Ruelas MD -[facility] Work Phone: Start: 12-24-2024 ambulatory Efewongbe Oleghe OLS Fa cility:[facility] Start: 12-24-2024 Safia SOMMER L - [place] Start: 12-17-2024 ambulatory Efewongbe Oleghe OLS Fa cility:[facility] Start: 12-17-2024 Safia SOMMER L - [place] Start: 12-10-2024 ambulatory Efewongbe Oleghe OLS Fa cility:[facility] Start: 12-10-2024 Safia Martin - [place] Start: 12-03-2024 ambulatory Efewongbe Oleghe OLS Fa cility:[facility] Start: 12-03-2024 Safia Martin - [place] Start: 11-28-2024 End: 11-28-[address] Kameron Caruso MD Work Phone: [facility] Start: 11-28-2024 End: 11-28-2024 Bret WILKERSON -[facility] Work Phone: Start: 11-26-2024 ambulatory Efewongbe Enricoe OLS Fa cility:[facility] Start: 11-26-2024 Registered Referred Safia Torres Start: 11-26-2024 Safia Forde Veronica - [place] Start: 11-25-2024 End: 11-25-[address] Kameron Caruso MD Work Phone: -Veronica Torres Start: 11-25-2024 Registered Referred Safia Torres Start: 11-25-2024 End: 11-25-2024 Safia Torres Start: 11-25-2024 End: 11-25-2024 ambulatory Efewongbe Oleghe OLS Facility:[facility] Start: 11-20-2024 End: 11-20-[address] Kameron Caruso MD Work Phone: [facility] Start: 11-20-2024 End: 11-20-2024 Bret WILKERSON -[facility] Work Phone: Start: 11-19-2024 ambulatory Leonidesjosé antonio VARGAS Fa cility:[facility] Start: 11-19-2024 Registered Referred Safia CANAS - [place] Start: 11-19-2024 Safia FordeWH L - [place] Start: 11-12-2024 End: 11-12-[address] Kameron Caruso MD Work Phone: -[facility] - [place] Start: 11-12-2024 Registered Referred Safia Forde [place] Start: 11-12-2024 End: 11-12-2024 Safia CANAS - [place] Start: 11-12-2024 End: 11-12-2024 ambulatory Safia VARGAS Facility:[facility] Start: 11-05-2024 ambulatory Safia Jessenia VARGAS Fa cility:[facility] Start: 11-05-2024 Registered Referred Safia CANAS - [place] Start: 11-05-2024 Safia SOMMER L - [place] Start: 10-30-2024 End: 10-30-[address] Kameron Caruso MD Work Phone: [facility] Start: 10-30-2024 End: 10-30-2024 Patient encounter procedure Bret WILKERSON -[facility] Work Phone: Start: 10-30-2024 End: 10-30-2024 Bret WILKERSON -[facility] Work Phone: Start: 10-29-2024 End: 10-29-[address] Safia Ruelas MD -[facility] Work Phone: Start: 10-29-2024 End: 10-29-[address] Kameron Caruso MD Work Phone: [facility] Start: 10-29-2024 Registered Referred Safia Torres Start: 10-29-2024 End: 10-29-2024 Dr. Safia Ruelas MD -[facility] Work Phone: Start: 10-29-2024 End: 10-29-2024 ambulatory Safia VARGAS Facility:[facility] Start: 10-23-2024 ambulatory Safia VARGAS Fa cility:[facility] Start: 10-23-2024 Registered Referred Safia Torres Start: 10-23-2024 Safia Torres Start: 10-22-2024 End: 10-22-2024 Patient encounter procedure Bretmya Snyder [facility] Work Phone: Start: 10-22-2024 End: 10-22-[address] Kameron Caruso MD Work Phone: [facility] Start: 10-22-2024 Registered Referred Safia Torres Start: 10-22-2024 End: 10-22-2024 [facility]: Start: 10-15-2024 ambulatory Safia VARGAS Fa cility:[facility] Start: 10-15-2024 Registered Referred Safia Torres Start: 10-15-2024 Safia Torres Start: 10-09-2024 End: 10-09-[address] Kameron Caruso MD Work Phone: [facility] Start: 10-09-2024 End: 10-09-2024 Patient encounter procedure Bret Snyder APARTMENT MAINTENANCE TECHNICIAN-[place]ucho -[facility] Work Phone: Start: 10-09-2024 End: 10-09-2024 Bret Snyder APARTMENT MAINTENANCE TECHNICIAN-Chucho -[facility] Work Phone: Start: 10-08-2024 ambulatory Efsherry Westone OLS Fa cility:[facility] Start: 10-08-2024 Registered Referred Safia Torres Start: 10-08-2024 Safia Torres Start: 10-02-2024 End: 10-02-[address] Mj Benavides MD -[facility] Work Phone: Start: 10-02-2024 End: 10-02-2024 Dr. Mj Benavides MD -[facility] Work Phone: Start: 10-02-2024 End: 10-02-[address] Kameron Caruso MD Work Phone: [facility] Work Phone: Start: 10-01-2024 ambulatory Efsherry Ruelas OLS Fa cility:[facility] Start: 10-01-2024 Registered Referred Safia Torres Start: 10-01-2024 Safia Torres Start: 09-29-2024 ambulatory Efewongbe Enricoe OLS Fa cility:[facility] Start: 09-29-2024 Registered Referred Safia Torres Start: 09-29-2024 Safia Torres Start: 09-24-2024 ambulatory Efewongbe Oleghe OLS Fa cility:[facility] Start: 09-24-2024 Registered Referred Safia Torres Start: 09-24-2024 Safia Patelnison Start: 09-17-2024 ambulatory Safia Ruelas OLS Fa cility:[facility] Start: 09-17-2024 Registered Referred Safia Torres Start: 09-17-2024 Safia Torres Start: 09-11-2024 End: 09-11-2024 ambulatory Bret Snyder NP Facility:[facility] Start: 09-11-2024 End: 09-11-2024 Patient encounter procedure Bret Snyder APARTMENT MAINTENANCE TECHNICIAN-C -[facility] Work Phone: Start: 09-11-2024 End: 09-11-2024 Bret Snyder APARTMENT MAINTENANCE TECHNICIAN-C -[facility] Work Phone: Start: 09-10-2024 End: 09-10-[address] Safia Ruelas MD -[facility] Work Phone: Start: 09-10-2024 End: 09-10-2024 ambulatory Safia Ruelas Facility:[facility] Start: 09-10-2024 Registered Referred Safia Torres Start: 09-10-2024 End: 09-10-2024 Dr. Safia Ruelas MD -[facility] Work Phone: Start: 08-30-2024 End: 08-30-2024 Telephone encounter Kameron Caruso MD Work Phone: [facility] Comment on above: Tyler [facility] requesti ng verbal agree to follow Start: 08-15-2024 End: 09-09-2024 Evaluation and management of inpatient SILVINO HA DO Tyler Garcia Start: 08-09-2024 Evaluation and manag ement of inpatient KAMERON CARUSO Facility:[facility] Start: 08-06-2024 Evaluation and manag ement of inpatient [facility] Start: 08-02-2024 End: 08-02-2024 ambulatory JUVENTINO ROGERS Facility:[facility] Start: 08-02-2024 End: 08-15-2024 Evaluation and [...] Kameron Caruso MD Work Phone: [facility] [place] Comment on above: medication not on cu rrent med list Start: 06-26-2024 End: 06-26-2024 Office outpatient visit 25 minutes Emma Sotomayor APRN.CNP Work Phone: [facility] [place] Comment on above: Atrial fibrillation, unspecified type (HCC) (Primary Dx); Hypothyroidism, unspecified type; Need for malaria prophylaxis Start: 06-26-2024 End: 06-26-2024 ambulatory EMMA SOTOMAYOR Facility:[facility] Start: 06-25-2024 ambulatory KAMERON CARUSO Facil ity:[facility] Start: 06-24-2024 End: 06-24-2024 Telephone encounter Kameron Caruso MD Work Phone: [facility] [place] Comment on above: Patient Update Start: 06-11-2024 End: 06-11-2024 Telephone encounter Kameron Caruso MD Work Phone: [facility] [place] Comment on above: Results Start: 06-11-2024 End: 06-11-2024 ambulatory KAMEORN CARUSO Facility:[facility] Start: 06-10-2024 End: 06-11-2024 Telephone encounter Kameron Caruso MD Work Phone: [facility] [place] Comment on above: Medication Problem Start: 05-31-2024 End: 05-31-2024 ambulatory [facility] Facility:[facility] Start: 05-31-2024 End: 05-31-2024 Patient encounter procedure Kameron Caruso MD Work Phone: [facility] [place] Comment on above: Essential hypertensi on, benign (Primary Dx); Type 2 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, without long-term current use of insulin ([facility]); Chronic kidney disease, stage 3a (HCC); Hyperlipidemia, unspecified hyperlipidemia type; Hypothyroidism, unspecified type; Edema of left lower leg; Memory loss; Urinary incontinence, unspecified type; Irregular heart beat; Atrial fibrillation, unspecified type (HCC) Start: 05-23-2024 End: 05-23-2024 [facility] Facility:[facility] Start: 11-28-2023 End: 11-28-2023 [facility] Facility:[facility] Start: 11-28-2023 End: 11-28-2023 Patient encounter procedure Kameron Crauso MD Work Phone: [facility] [place] Comment on above: 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, unspecified CKD stage, unspecified whether custodial insulin use (HCC) (Primary Dx); Essential hypertension, benign; Chronic kidney disease, stage 3a (HCC); Hyperlipidemia, unspecified hyperlipidemia type; Hypothyroidism, unspecified type; Edema of left lower leg; Memory loss; Type 2 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, without long-term current use of insulin (HCC) Start: 11-27-2023 End: 11-27-2023 ambulatory [facility] Facility:[facility] Start: 10-10-2023 End: 10-10-2023 [facility] Facility:[facility] Start: 10-10-2023 End: 10-10-2023 Office outpatient visit 25 minutes David Dupree APRN.CNP Work Phone: [facility] Comment on above: Rash (Primary Dx) Start: 09-29-2023 End: 09-29-2023 ambulatory KAMERON CARUSO Facility:[facility] Start: 09-29-2023 End: 09-29-2023 Patient encounter procedure Radha Levine APRN.PLANT TECHNICIAN/CONTROL ROOM OPERATOR Work Phone: [facility] Comment on above: Allergic contact lexi matitis due to plant (Primary Dx) Start: 09-19-2023 Refill Kameron nixon MD Work Phone: [facility] Comment on above: Refill Request Start: 04-08-2023 Telephone encounter Kameron bucio MD Work Phone: [address] [place] [address] Comment on above: Refill Request Start: 11-25-2022 Telephone encounter Kameron bucio MD Work Phone: [facility] Comment on above: Patient Question Start: 05-27-2022 End: 05-27-2022 Patient encounter procedure Kameron Caruso MD Work Phone: [facility] Comment on above: Essential hypertensi on, benign (Primary Dx); Hypothyroidism, unspecified type; Type 2 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, without long-term current use of insulin (HCC); Hyperlipidemia, unspecified hyperlipidemia type; Chronic kidney disease, stage 3a (HCC); Edema of left lower leg; Wellness examination Start: 05-27-2022 End: 05-27-2022 Patient encounter status Kameron Caruso MD Work Phone: [facility] Start: 04-11-2022 Refill Kameron nixon MD Work Phone: [facility] Comment on above: Refill Request Start: 03-02-2022 ambulatory Kameron nixon MD Work Phone: [facility] Comment on above: Back Pain Start: 03-02-2022 End: 03-02-2022 Patient encounter procedure Emma Sotomayor APRN.PLANT TECHNICIAN/CONTROL ROOM OPERATOR Work Phone: [facility] Comment on above: Acute midline low ba ck pain without sciatica (Primary Dx) Start: 01-11-2022 Refill Mj ORTIZ RN.PLANT TECHNICIAN/CONTROL ROOM OPERATOR Work Phone: [facility] Comment on above: Refill Request Start: 01-11-2022 Refill Kameron nixon MD Work Phone: [facility] [place] Comment on above: Refill Request Start: 12-16-2021 Telephone encounter Kameron bucio MD Work Phone: [facility] [place] Comment on above: Diabetic Testing Sup plies Start: 11-23-2021 End: 11-23-2021 Refill Kameron Caruso MD Work Phone: [facility] [place] Comment on above: 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, unspecified CKD stage, unspecified whether intermission coordinator insulin use (HCC) (Primary Dx); Essential hypertension, benign; Hyperlipidemia, unspecified hyperlipidemia type; Stage 3b chronic kidney disease (HCC); Hypothyroidism, unspecified type; Memory loss Start: 10-14-2021 Refill Kameron nixon MD Work Phone: [facility] Comment on above: Refill Request Start: 09-27-2021 Telephone encounter Kameron bucio MD Work Phone: [facility] Comment on above: information requeste d/rxs needed Start: 09-13-2021 Telephone encounter Kameron bucio MD Work Phone: [facility] Comment on above: Patient Question; [...] Date Procedure Procedure Detail Performing Clinician Start: 03-04-2025 Mean corpuscular hem oglobin concentration determination Dr. Kameron Caruso MD Work Phone: Start: 03-04-[address] Tatiana Caruso MD Work Phone: Start: 03-04-2025 Nucleated red blood cell count procedure Dr. Kameron Caruso MD Work Phone: Start: 03-04-2025 Platelet mean volume determination Dr. Kameron Caruso MD Work Phone: Start: 02-25-2025 Mean corpuscular hem oglobin concentration determination Dr. Kameron Caruso MD Work Phone: Start: 02-25-[address] Tatiana Caruso MD Work Phone: Start: 02-25-2025 Nucleated red blood cell count procedure Dr. Kameron Caruso MD Work Phone: Start: 02-25-2025 Platelet mean volume determination Dr. Kameron Caruso MD Work Phone: Start: 02-18-2025 Mean corpuscular hem oglobin concentration determination Dr. Kameron Caruso MD Work Phone: Start: 02-18-[address] Tatiana Caruso MD Work Phone: Start: 02-18-2025 Nucleated red blood cell count procedure Dr. Kameron Caruso MD Work Phone: Start: 02-18-2025 Platelet mean volume determination Dr. Kameron Caruso MD Work Phone: Start: 02-11-2025 Mean corpuscular hem oglobin concentration [...] red blood cell count procedure Dr. Kameron Carsuo MD Work Phone: Start: 02-04-2025 Platelet mean [...] Kameron Caruso MD Work Phone: Start: 12-24-2024 Neutrophil count [...] Nucleated red blood cell count procedure Dr. Kaemron Caruso MD Work Phone: Start: 11-12-2024 Platelet [...] 08-15-2024 Assay of magnesium Abdoule scott Nadine SPUN PASTE MACHINE OPERATOR-PLANT TECHNICIAN/CONTROL ROOM OPERATOR Work Phone: Start: 08-15-2024 Glucose measurement, blood Christos Voss MD Work Phone: Start: 08-14-2024 Glucose measurement, blood Christos Voss MD Work Phone: Start: 08-14-2024 Glucose measurement, blood Christos Voss MD Work Phone: Start: 08-14-2024 Glucose measurement, blood Christos Voss MD Work Phone: Start: 08-14-2024 Assay of magnesium Abram chavez Nadine SPUN PASTE MACHINE OPERATOR-PLANT TECHNICIAN/CONTROL ROOM OPERATOR Work Phone: Start: 08-13-2024 Glucose measurement, blood Christos Voss MD Work Phone: Start: 08-13-2024 Glucose measurement, blood Christos Voss MD Work Phone: Start: 08-13-2024 Glucose measurement, blood Christos Voss MD Work Phone: Start: 08-13-2024 Glucose measurement, blood Felicity Castellano MD Work Phone: Start: 08-13-2024 Assay of magnesium Abdoule rin M Nadine SPUN PASTE MACHINE OPERATOR-PLANT TECHNICIAN/CONTROL ROOM OPERATOR Work Phone: Start: 08-13-2024 Glucose measurement, blood Felicity Castellano MD Work Phone: Start: 08-12-2024 Glucose measurement, blood Felicity Castellano MD Work Phone: Start: 08-12-2024 Glucose measurement, blood Felicity Castellano MD Work Phone: Start: 08-12-2024 Glucose measurement, blood Felicity Castellano MD Work Phone: Start: 08-12-2024 Assay of magnesium Nase rin M Nadine SPUN PASTE MACHINE OPERATOR-PLANT TECHNICIAN/CONTROL ROOM OPERATOR Work Phone: Start: 08-12-2024 Glucose measurement, blood Felicity Castellano MD Work Phone: Start: 08-11-2024 Glucose measurement, blood Felicity Castellano MD Work Phone: Start: 08-11-2024 Glucose measurement, blood Felicity Castellano MD Work Phone: Start: 08-11-2024 Glucose measurement, blood Felicity Castellano MD Work Phone: Start: 08-11-2024 Assay of magnesium Nase rin Jaiden Nadine SPUN PASTE MACHINE OPERATOR-PLANT TECHNICIAN/CONTROL ROOM OPERATOR Work Phone: Start: 08-10-2024 Glucose measurement, blood Felicity Castellano MD Work Phone: Start: 08-10-2024 Glucose measurement, blood Felicity Castellano MD Work Phone: Start: 08-10-2024 End: 08-10-2024 Culture bacterial blood aerobic w/id isolates Radha Gr SPUN PASTE MACHINE OPERATOR-PLANT TECHNICIAN/CONTROL ROOM OPERATOR Work Phone: Start: 08-10-2024 Glucose measurement, blood Felicity Castellano MD Work Phone: Start: 08-10-2024 End: 08-10-2024 Glucose measurement, blood Felicity Castellano MD Work Phone: Start: 08-10-2024 Glucose measurement, blood Felicity Castellano MD Work Phone: Start: 08-10-2024 Assay of magnesium Abram Mccoy SPUN PASTE MACHINE OPERATOR-PLANT TECHNICIAN/CONTROL ROOM OPERATOR Work Phone: Start: 08-10-2024 Glucose measurement, blood [...] Start: 08-09-2024 Assay of magnesium Abram Mccoy SPUN PASTE MACHINE OPERATOR-PLANT TECHNICIAN/CONTROL ROOM OPERATOR Work Phone: Start: 08-09-2024 Glucose measurement, blood Felicity Castellano MD Work Phone: Start: 08-08-2024 Glucose measurement, blood Felicity Castellano MD Work Phone: Start: 08-08-2024 Culture bct isol&prs mptv id isolate ea urine Bella Cardenas SPUN PASTE MACHINE OPERATOR-PLANT TECHNICIAN/CONTROL ROOM OPERATOR Work Phone: Start: 08-08-2024 EXTRA MICRO Bella Hwang Ma rtforrest SPUN PASTE MACHINE OPERATOR-PLANT TECHNICIAN/CONTROL ROOM OPERATOR Work Phone: Start: 08-08-2024 URINALYSIS REFLEX TO CULTURE Bella Cardenas SPUN PASTE MACHINE OPERATOR-PLANT TECHNICIAN/CONTROL ROOM OPERATOR Work Phone: Start: 08-08-2024 Ct head/brain w/o co ntrast material Bella Cardenas SPUN PASTE MACHINE OPERATOR-PLANT TECHNICIAN/CONTROL ROOM OPERATOR Work Phone: Start: 08-08-2024 Glucose measurement, blood Felicity Castellano MD Work Phone: Start: 08-08-2024 End: 08-08-2024 Glucose measurement, blood Felicity Castellano MD Work Phone: Start: 08-08-2024 Assay of magnesium Nase rin M Nadine SPUN PASTE MACHINE OPERATOR-PLANT TECHNICIAN/CONTROL ROOM OPERATOR Work Phone: Start: 08-07-2024 Glucose measurement, blood Felicity Castellano MD Work Phone: Start: 08-07-2024 Glucose measurement, blood Felicity Castellano MD Work Phone: Start: 08-07-2024 Glucose measurement, blood Felicity Castellano MD Work Phone: Start: 08-07-2024 Glucose measurement, blood Felicity Castellano MD Work Phone: Start: 08-06-2024 Glucose measurement, blood Felicity Castellano MD Work Phone: Start: 08-06-2024 Assay of magnesium Nase rin M Nadine SPUN PASTE MACHINE OPERATOR-PLANT TECHNICIAN/CONTROL ROOM OPERATOR Work Phone: Start: 08-06-2024 Glucose measurement, blood Felicity Castellano MD Work Phone: Start: 08-06-2024 Glucose measurement, blood Felicity Castellano MD Work Phone: Start: 08-06-2024 Radiologic exam swal low function contrast study Shanna Russ SPUN PASTE MACHINE OPERATOR-PLANT TECHNICIAN/CONTROL ROOM OPERATOR Work Phone: Start: 08-06-2024 SPEECH MODIFIED KEAGAN UM SWALLOW Shanna Russ SPUN PASTE MACHINE OPERATOR-PLANT TECHNICIAN/CONTROL ROOM OPERATOR Work Phone: Start: 08-06-2024 Glucose measurement, blood Felicity Castellano MD Work Phone: Start: 08-05-2024 Glucose measurement, blood Felicity Castellano MD Work Phone: Start: 08-05-2024 Assay of magnesium Nase rin M Nadine SPUN PASTE MACHINE OPERATOR-PLANT TECHNICIAN/CONTROL ROOM OPERATOR Work Phone: Start: 08-05-2024 Glucose measurement, blood Felicity Castellano MD Work Phone: Start: 08-05-2024 Glucose measurement, blood Felicity Castellano MD Work Phone: Start: 08-05-2024 Echo tthrc r-t 2d w/wom-mode compl spec&colr d Taran Traore [facility] Work Phone: Start: 08-05-2024 Glucose measurement, blood Felicity Castellano MD Work Phone: Start: 08-05-2024 Assay of magnesium Abram Schulteameh [facility] Work Phone: Start: 08-05-2024 Glucose measurement, [...] Start: 08-04-2024 Assay of magnesium Abram Mccoy [facility] Work Phone: Start: 08-04-2024 Glucose measurement, blood Richard Mejia MD Work Phone: Start: 08-03-2024 Ct head/brain w/o co ntrast material Shaila Méndez PA-C Start: 08-03-2024 Sodium serum plasma or whole blood Shanna Denise MD Work Phone: Start: 08-03-2024 Glucose measurement, blood Richard Mejia MD Work Phone: Start: 08-03-2024 Radiologic exam abdo men 1 view Balbir Mccoy SPUN PASTE MACHINE OPERATOR-PLANT TECHNICIAN/CONTROL ROOM OPERATOR Work Phone: Start: 08-03-2024 Glucose measurement, blood [...] brain brain stem w/o contrast material Tarannehemiah Priestzoie SPUN PASTE MACHINE OPERATOR-PLANT TECHNICIAN/CONTROL ROOM OPERATOR Work Phone: Start: 08-03-2024 ABORH TYPE RECONFIRMATION Cindy MONTANEZ Work Phone: Start: 08-03-2024 Assay of magnesium Abram Mccoy SPUN PASTE MACHINE OPERATOR-PLANT TECHNICIAN/CONTROL ROOM OPERATOR Work Phone: Start: 08-02-2024 Glucose measurement, blood [...] Performed By: #### X M #### [facility] (DEFAULT) [address] [place] [address] Start: 08-02-2024 EXTRA MICRO Taran Traore SPUN PASTE MACHINE OPERATOR-PLANT TECHNICIAN/CONTROL ROOM OPERATOR Work Phone: Start: 08-02-2024 Hemoglobin glycosylated a1c Balbir Mccoy SPUN PASTE MACHINE OPERATOR-PLANT TECHNICIAN/CONTROL ROOM OPERATOR Work Phone: Start: 08-02-2024 Hepatic function panel Balbir Mccoy SPUN PASTE MACHINE OPERATOR-PLANT TECHNICIAN/CONTROL ROOM OPERATOR Work Phone: Start: 08-02-2024 Iadna s aureus ampli fied probe tq Balbir Mccoy SPUN PASTE MACHINE OPERATOR-PLANT TECHNICIAN/CONTROL ROOM OPERATOR Work Phone: Start: 08-02-2024 URINALYSIS REFLEX TO CULTURE Taran Traore SPUN PASTE MACHINE OPERATOR-PLANT TECHNICIAN/CONTROL ROOM OPERATOR Work Phone: Start: 08-02-2024 Urnls dip stick/tabl et reagent auto microscopy Taran Traore SPUN PASTE MACHINE OPERATOR-PLANT TECHNICIAN/CONTROL ROOM OPERATOR Work Phone: Start: 08-02-2024 SARS-CoV-2, Influenz a [...] Author Start: 08-15-2025 Complete blood count Hemoglobin/Hematocrit [facility] Start: 08-15-2025 Creatinine measurement Serum Creatinine [facility] Start: 08-02-2025 Thyroid stimulating hormone measurement [facility] Start: 06-26-2025 Annual PCP Team Chronic Disease Visit Annual PCP Team Chronic Disease Visit [facility] Start: 05-31-2025 Annual PCP Team Chronic Disease Visit Annual PCP Team Chronic Disease Visit [facility] Start: 05-31-2025 Covid-19 Vaccine ( season) Covid-19 Vaccine ( season) [facility] Comment on above: Postponed from 01/14/2024 (Declined at t his time) Start: 05-31-2025 Pneumococcal Vaccine: 50+ (2 of 2 - PPSV23) Pneumococcal Vaccine: 50+ (2 of 2 - PPSV23) [facility] Comment on above: Postponed from 12/19/2019 (Declined at t his time) Start: 05-23-2025 Creatinine measurement Serum Creatinine [facility] Start: 05-23-2025 Hepatitis B screening Urine Albumin:Creatinine Ratio [facility] Start: 05-23-2025 Hepatitis B surface antibody level LDL Cholesterol [facility] Start: 03-04-2025 -GILMA Torres Start: 02-25-2025 -GILMA Torres Start: 02-02-2025 Hemoglobin A1c measurement HbA1C [facility] Start: 01-13-2025 Influenza vaccination [facility] Start: 01-03-2025 Glaucoma screening Dilated Retinal Exam [facility] Start: 12-24-2024 End: 12-24-2024 Patient encounter procedure 12/24/2024 9:20 AM EDT Office Visit Family [place] [facility] [address] [place] [id number] Kameron Caruso MD [address] [place] [address] 6 month follow up [facility] [place] Comment on above: 6 month follow up Start: 11-28-2024 End: 02-27-2025 Comprehensive metabolic 2000 panel - Serum or Plasma COMPREHENSIVE METABOLIC PANEL Lab Routine Essential hypertension, benign Chronic kidney disease, stage 3a (HCC) Hyperlipidemia, unspecified hyperlipidemia type Expected: 11/28/2024 (Approximate), Expires: 02/27/2025 [facility] Work Phone: Comment on above: Expected: 11/28/2024 (Approximate), Expi res: 02/27/2025 Start: 11-28-2024 End: 02-27-2025 Hemoglobin A1c in Blood HEMOGLOBIN A1C Lab Routine Expected: 11/28/2024 (Approximate), Expires: 02/27/2025 [facility] Comment on above: Expected: 11/28/2024 (Approximate), Expi res: 02/27/2025 Start: 11-28-2024 End: 02-27-2025 Lipid 1996 panel - Serum or Plasma LIPID PANEL BASIC Lab Routine Essential hypertension, benign Hyperlipidemia, unspecified hyperlipidemia type Expected: 11/28/2024 (Approximate), Expires: 02/27/2025 [facility] Comment on above: Expected: 11/28/2024 (Approximate), Expi res: 02/27/2025 Start: 11-28-2024 End: 02-27-2025 Thyrotropin [Units/volume] in Serum or Plasma THYROID STIMULATING HORMONE Lab Routine Hypothyroidism, unspecified type Expected: 11/28/2024 (Approximate), Expires: 02/27/2025 [facility] Comment on above: Expected: 11/28/2024 (Approximate), Expi res: 02/27/2025 Start: 11-27-2024 Annual PCP Team Chronic Disease Visit Annual PCP Team Chronic Disease Visit [facility] Start: 11-27-2024 Anxiety Screening Anxiety Screening [facility] Start: 11-27-2024 Depression Screening Depression Screening [facility] Start: 11-27-2024 RSV Vaccine (1 - 1-dose 60+ series) RSV Vaccine (1 - 1-dose 60+ series) [facility] Comment on above: Postponed from 2004 (Declined at t his time) Start: 11-27-2024 RSV Vaccine (1 - 1-dose 75+ series) RSV Vaccine (1 - 1-dose 75+ series) [facility] Comment on above: Postponed from 10/26/2019 (Declined at t his time) Start: 11-26-2024 Creatinine measurement Serum Creatinine [facility] Start: 11-26-2024 Hepatitis B surface antibody level LDL Cholesterol [facility] Start: 11-20-2024 Hemoglobin A1c measurement HbA1C [facility] Start: 11-11-2024 Influenza vaccination [facility] (#[facility] Comment on above: Postponed from 01/14/2024 (Declined at t his time) Start: 10-08-2024 End: 10-08-2024 ambulatory [facility] Start: 10-02-2024 Evaluation of diagnostic study results 12 Lead EKG performed by [facility] Start: 08-02-2024 [facility] Start: 08-02-2024 SARS-CoV-2, Influenza & RSV (PCR) SARS-CoV-2, Influenza & RSV (PCR) [facility] Start: 08-02-2024 End: 08-02-2024 [facility] Start: 08-02-2024 Electrocardiographic procedure [facility] Start: 08-02-2024 Oxygen therapy [facility] Start: 07-24-2024 End: 10-23-2024 Thyrotropin [Units/volume] in Serum or Plasma THYROID STIMULATING HORMONE Lab Routine Hypothyroidism, unspecified type Expected: 07/24/2024, Expires: 10/23/2024 [facility] Work Phone: Comment on above: Expected: 07/24/2024, Expires: Start: 07-24-2024 End: 10-23-2024 Thyroxine (T4) free [Mass/volume] in Serum or Plasma T4 FREE/FREE THYROXINE Lab Routine Hypothyroidism, unspecified type Expected: 07/24/2024, Expires: 10/23/2024 [facility] Comment on above: Expected: 07/24/2024, Expires: Start: 06-25-2024 End: 06-25-2024 Patient encounter procedure 06/25/2024 9:40 AM EST Office Visit Family [facility] [address], [place] [id number] Kameron Caruso MD [address] [place], [place] [id number] 1 mo f/u, new dx afib. Family [facility] Comment on above: 1 mo f/u, new dx afib. Start: 06-11-2024 End: 06-11-2024 Patient encounter procedure 06/11/2024 8:50 AM EST Office Visit Cardiology [address] [place], [place] [id number] Atrial fibrillation, unspecified type (HCC) [I48.91] Cardiology Comment on above: Atrial fibrillation, unspecified type (H CC) [I48.91] Start: 05-30-2024 Annual PCP Team Chronic Disease Visit Annual PCP Team Chronic Disease Visit [facility] Start: 05-30-2024 End: 08-29-2024 Comprehensive metabolic 2000 panel - Serum or Plasma COMPREHENSIVE METABOLIC PANEL Lab Routine Type 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, unspecified CKD stage, unspecified whether custodial insulin use (HCC) Essential hypertension, benign Chronic kidney disease, stage 3a (HCC) Hyperlipidemia, unspecified hyperlipidemia type Expected: 05/30/2024 (Approximate), Expires: 08/29/2024 [facility] Work Phone: Comment on above: Expected: 05/30/2024 (Approximate), Expi res: 08/29/2024 Start: 05-30-2024 Covid-19 Vaccine () Covid-19 Vaccine () [facility] Comment on above: Postponed from 01/13/2023 (Declined at t his time) Start: 05-30-2024 End: 08-29-2024 Hemoglobin A1c in Blood HEMOGLOBIN A1C Lab Routine Type 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, unspecified CKD stage, unspecified whether intermission coordinator insulin use (HCC) Expected: 05/30/2024 (Approximate), Expires: 08/29/2024 [facility] Comment on above: Expected: 05/30/2024 (Approximate), Expi res: 08/29/2024 Start: 05-30-2024 Hepatitis C screening Hepatitis C Screening [facility] Comment on above: Postponed from 1962 (Declined at t his time) Start: 05-30-2024 End: 08-29-2024 Lipid 1996 panel - Serum or Plasma LIPID PANEL BASIC Lab Routine Type 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, unspecified CKD stage, unspecified whether custodial insulin use (HCC) Essential hypertension, benign Hyperlipidemia, unspecified hyperlipidemia type Expected: 05/30/2024 (Approximate), Expires: 08/29/2024 [facility] Comment on above: Expected: 05/30/2024 (Approximate), Expi res: 08/29/2024 Start: 05-30-2024 End: 08-29-2024 Microalbumin/Creatinine [Mass Ratio] in Urine ALBUMIN/CREATININE RATIO, URINE Lab Routine Type 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, unspecified CKD stage, unspecified whether intermission coordinator insulin use (HCC) Expected: 05/30/2024 (Approximate), Expires: 08/29/2024 [facility] Comment on above: Expected: 05/30/2024 (Approximate), Expi res: 08/29/2024 Start: 05-30-2024 Pneumococcal Vaccine: 65+ (2 of 2 - PPSV23 or PCV20) Pneumococcal Vaccine: 65+ (2 of 2 - PPSV23 or PCV20) [facility] Comment on above: Postponed from 12/19/2019 (Declined at t his time) Start: 05-30-2024 End: 08-29-2024 Thyrotropin [Units/volume] in Serum or Plasma THYROID STIMULATING HORMONE Lab Routine Hypothyroidism, unspecified type Expected: 05/30/2024 (Approximate), Expires: 08/29/2024 [facility] Comment on above: Expected: 05/30/2024 (Approximate), Expi res: 08/29/2024 Start: 05-30-2024 End: 05-30-2024 Patient encounter procedure 05/30/2024 9:40 AM EST Office Visit Family [place] [facility] [address] [place] [address] Kameron Caruso MD [address] [place] [address] 6 mo f/u Family [place] [facility] Comment on above: 6 mo f/u Start: 05-29-2024 Hemoglobin A1c measurement HbA1C [facility] Start: 05-16-2024 Creatinine measurement Serum Creatinine [facility] Start: 05-16-2024 Hepatitis B screening Urine Albumin:Creatinine Ratio [facility] Start: 05-16-2024 Hepatitis B surface antibody level LDL Cholesterol [facility] Start: 05-15-2024 Advance Directive Discussion Advance Directive Discussion [facility] Start: 01-14-2024 Influenza vaccination [facility] Start: 01-14-2024 [facility] Start: 01-04-2024 Glaucoma screening Dilated Retinal Exam [facility] Start: 01-04-2024 Hepatitis C antibody, confirmatory test Dilated Retinal Exam [facility] Start: 11-28-2023 End: 11-28-2023 Patient encounter procedure 11/28/2023 9:40 AM EDT Office Visit Family [place] [facility] [address] [place] [address] Kameron Caruso MD [address] [place] [address] 6 mo follow up Family [place] [facility] Comment on above: 6 mo follow up Start: 11-26-2023 ANNUAL PCP TEAM CHRONIC DISEASE VISIT ANNUAL PCP TEAM CHRONIC DISEASE VISIT [facility] Start: 11-26-2023 BP CONTROLLED (<130/80) BP CONTROLLED (<130/80) [facility] Start: 11-23-2023 Complete blood count Hemoglobin/Hematocrit [facility] Start: 11-23-2023 HEMOGLOBIN/HEMATOCRIT HEMOGLOBIN/HEMATOCRIT [facility] Start: 11-23-2023 Hepatitis B surface antibody level LDL CHOLESTEROL [facility] Start: 11-23-2023 SERUM CREATININE SERUM CREATININE [facility] Start: 11-14-2023 Hemoglobin A1c measurement HbA1C [facility] Start: 05-27-2023 ANNUAL PCP TEAM CHRONIC DISEASE VISIT ANNUAL PCP TEAM CHRONIC DISEASE VISIT [facility] Start: 05-27-2023 COVID-19 VACCINE (2 - Booster for Alyssa series) COVID-19 VACCINE (2 - Booster for Alyssa series) [facility] Comment on above: Postponed from 09/17/2020 (Declined at t his time) Start: 05-27-2023 HEPATITIS C SCREENING HEPATITIS C SCREENING [facility] Comment on above: Postponed from 1962 (Declined at t his time) Start: 05-25-2023 Hemoglobin A1c/Hemoglobin.total in Blood HBA1C [facility] Start: 05-19-2023 HEMOGLOBIN/HEMATOCRIT HEMOGLOBIN/HEMATOCRIT [facility] Start: 05-19-2023 Hepatitis B surface antibody level LDL CHOLESTEROL [facility] Start: 05-19-2023 SERUM CREATININE SERUM CREATININE [facility] Start: 05-15-2023 Advance Directive Discussion Advance Directive Discussion [facility] Start: 05-15-2023 Behavioral Health Screening Behavioral Health Screening [facility] Start: 03-02-2023 ANNUAL PCP TEAM CHRONIC DISEASE VISIT ANNUAL PCP TEAM CHRONIC DISEASE VISIT [facility] Start: 01-13-2023 Covid-19 Vaccine () Covid-19 Vaccine () [facility] Start: 01-13-2023 Influenza vaccination [facility] Start: 12-27-2022 Hepatitis C antibody, confirmatory test DILATED RETINAL EXAM [facility] Start: 11-24-2022 End: 01-24-2023 CBC panel - Blood by Automated count CBC Lab Routine Essential hypertension, benign Hypothyroidism, unspecified type Expected: 11/24/2022 (Approximate), Expires: 01/24/2023 [facility] Work Phone: Comment on above: Expected: 11/24/2022 (Approximate), Expi res: 01/24/2023 Start: 11-24-2022 End: 01-24-2023 Comprehensive metabolic 2000 panel - Serum or Plasma COMP METABOLIC PANEL Lab Routine Essential hypertension, benign Type 2 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, without long-term current use of insulin (HCC) Hyperlipidemia, unspecified hyperlipidemia type Expected: 11/24/2022 (Approximate), Expires: 01/24/2023 [facility] Work Phone: Comment on above: Expected: 11/24/2022 (Approximate), Expi res: 01/24/2023 Start: 11-24-2022 End: 01-24-2023 Hemoglobin A1c in Blood HGB A1C Lab Routine Type 2 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, without long-term current use of insulin (HCC) Expected: 11/24/2022 (Approximate), Expires: 01/24/2023 [facility] Work Phone: Comment on above: Expected: 11/24/2022 (Approximate), Expi res: 01/24/2023 Start: 11-24-2022 End: 01-24-2023 Lipid 1996 panel - Serum or Plasma LIPID PANEL BASIC Lab Routine Essential hypertension, benign Type 2 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, without long-term current use of insulin (HCC) Hyperlipidemia, unspecified hyperlipidemia type Expected: 11/24/2022 (Approximate), Expires: 01/24/2023 [facility] Work Phone: Comment on above: Expected: 11/24/2022 (Approximate), Expi res: 01/24/2023 Start: 11-24-2022 End: 01-24-2023 Thyrotropin [Units/volume] in Serum or Plasma TSH BLD Lab Routine Hypothyroidism, unspecified type Expected: 11/24/2022 (Approximate), Expires: 01/24/2023 [facility] Work Phone: Comment on above: Expected: 11/24/2022 (Approximate), Expi res: 01/24/2023 Start: 11-23-2022 3 comp foot exam completed DIABETIC FOOT EXAM [facility] Start: 11-23-2022 ANNUAL PCP TEAM CHRONIC DISEASE VISIT ANNUAL PCP TEAM CHRONIC DISEASE VISIT [facility] Start: 11-23-2022 Diabetic foot examination Diabetic Foot Exam [facility] Start: 11-20-2022 Hepatitis B screening URINE ALBUMIN:CREATININE RATIO [facility] Start: 11-20-2022 Hepatitis B surface antibody level LDL CHOLESTEROL [facility] Start: 11-20-2022 SERUM CREATININE SERUM CREATININE [facility] Start: 11-16-2022 Hemoglobin A1c/Hemoglobin.total in Blood HBA1C [facility] Start: 11-11-2022 Influenza vaccination INFLUENZA (#1) [facility] Comment on above: Postponed from 01/13/2022 (Declined at t his time) Start: 05-26-2022 End: 07-26-2022 CBC panel - Blood by Automated count CBC Lab Routine Essential hypertension, benign Stage 3b chronic kidney disease (HCC) Expected: 05/26/2022 (Approximate), Expires: 07/26/2022 [facility] Work Phone: Comment on above: Expected: 05/26/2022 (Approximate), Expi res: 07/26/2022 Start: 05-26-2022 End: 07-26-2022 Comprehensive metabolic 2000 panel - Serum or Plasma COMP METABOLIC PANEL Lab Routine Type 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, unspecified CKD stage, unspecified whether intermission coordinator insulin use (HCC) Essential hypertension, benign Hyperlipidemia, unspecified hyperlipidemia type Stage 3b chronic kidney disease (HCC) Expected: 05/26/2022 (Approximate), Expires: 07/26/2022 [facility] Work Phone: Comment on above: Expected: 05/26/2022 (Approximate), Expi res: 07/26/2022 Start: 05-26-2022 End: 07-26-2022 Hemoglobin A1c in Blood HGB A1C Lab Routine Type 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, unspecified CKD stage, unspecified whether intermission coordinator insulin use (HCC) Expected: 05/26/2022 (Approximate), Expires: 07/26/2022 [facility] Work Phone: Comment on above: Expected: 05/26/2022 (Approximate), Expi res: 07/26/2022 Start: 05-26-2022 End: 07-26-2022 Lipid 1996 panel - Serum or Plasma LIPID PANEL BASIC Lab Routine Essential hypertension, benign Hyperlipidemia, unspecified hyperlipidemia type Expected: 05/26/2022 (Approximate), Expires: 07/26/2022 [facility] Work Phone: Comment on above: Expected: 05/26/2022 (Approximate), Expi res: 07/26/2022 Start: 05-26-2022 End: 07-26-2022 Thyrotropin [Units/volume] in Serum or Plasma TSH BLD Lab Routine Hypothyroidism, unspecified type Expected: 05/26/2022 (Approximate), Expires: 07/26/2022 [facility] Work Phone: Comment on above: Expected: 05/26/2022 (Approximate), Expi res: 07/26/2022 Start: 05-23-2022 Hemoglobin A1c/Hemoglobin.total in Blood HBA1C [facility] Start: 05-18-2022 ANNUAL PCP TEAM CHRONIC DISEASE VISIT ANNUAL PCP TEAM CHRONIC DISEASE VISIT [facility] Start: 05-17-2022 Hepatitis B surface antibody level LDL CHOLESTEROL [facility] Start: 05-17-2022 SERUM CREATININE SERUM CREATININE [facility] Start: 05-15-2022 ADVANCE DIRECTIVE DISCUSSION ADVANCE DIRECTIVE DISCUSSION [facility] Start: 01-13-2022 Influenza vaccination [facility] Start: 01-11-2022 Hepatitis C antibody, confirmatory test DILATED RETINAL EXAM [facility] Start: 11-14-2021 Hemoglobin A1c/Hemoglobin.total in Blood HBA1C [facility] Start: 11-06-2021 Screening for malignant neoplasm of breast [facility] Start: 11-05-2021 3 comp foot exam completed DIABETIC FOOT EXAM [facility] Start: 11-05-2021 Adult depression screening assessment DEPRESSION SCREENING [facility] Start: 11-04-2021 Hepatitis B screening URINE ALBUMIN:CREATININE RATIO [facility] Start: 10-15-2021 Hepa vaccine adult dose for intramuscular use HEPATITIS A VACCINE ADULT IM Immunization/Injection Routine Need for vaccination Expected: 10/15/2021 [facility] Work Phone: Comment on above: Expected: 10/15/2021 Start: 10-15-2021 Tdap vaccine 7 yrs/> im TDAP VACCINE AGE 7+ IM Immunization/Injection Routine Need for vaccination Expected: 10/15/2021 [facility] Work Phone: Comment on above: Expected: 10/15/2021 Start: 05-15-2021 ADVANCE DIRECTIVE DISCUSSION ADVANCE DIRECTIVE DISCUSSION [facility] Start: 05-15-2021 DEPRESSION ASSESSMENT DEPRESSION ASSESSMENT [facility] Start: 10-23-2020 PNEUMOCOCCAL: 65+ (2 - PPSV23 if available, else PCV20) PNEUMOCOCCAL: 65+ (2 - PPSV23 if available, else PCV20) [facility] Start: 10-23-2020 PNEUMOCOCCAL: 65+ (2 - PPSV23 or PCV20) PNEUMOCOCCAL: 65+ (2 - PPSV23 or PCV20) [facility] Start: 10-16-2020 HEMOGLOBIN/HEMATOCRIT HEMOGLOBIN/HEMATOCRIT [facility] Start: 09-17-2020 COVID-19 VACCINE (2 - Booster for Alyssa series) COVID-19 VACCINE (2 - Booster for Alyssa series) [facility] Start: 12-19-2019 Pneumococcal vaccination [facility] Start: 12-19-2019 Pneumococcal Vaccine: 65+ (2 - PPSV23 or PCV20) Pneumococcal Vaccine: 65+ (2 - PPSV23 or PCV20) [facility] Start: 12-19-2019 PNEUMOCOCCAL: 65+ (2 - PPSV23 or PCV20) PNEUMOCOCCAL: 65+ (2 - PPSV23 or PCV20) [facility] Start: 11-08-2019 Screening for malignant neoplasm of colon [facility] Start: 10-26-2019 [facility] Start: 01-13-2019 Influenza vaccination Flu vaccine (#1) [place], [place] Start: 12-23-2018 Annual Wellness Visit (AWV) Annual Wellness Visit (AWV) [place] Start: 2009 DEXA (modify frequency per FRAX score) DEXA (modify frequency per FRAX score) [place] Start: 2009 Pneumococcal 65+ years Vaccine (1 of 1 - PPSV23) Pneumococcal 65+ years Vaccine (1 of 1 - PPSV23) [place] Start: 2009 Pneumococcal 65+ years Vaccine (1 of 2 - PCV13) Pneumococcal 65+ years Vaccine (1 of 2 - PCV13) [place] Start: 10-26-2007 Annual Wellness Visit (AWV) Annual Wellness Visit (AWV) [place] Start: 2004 Hepatitis B Vaccine (1 of 3 - Risk 3-dose series) Hepatitis B Vaccine (1 of 3 - Risk 3-dose series) [facility] Start: 2004 RSV Vaccine (1 - 1-dose 60+ series) RSV Vaccine (1 - 1-dose 60+ series) [facility] Start: 10-26-1999 Screening for osteoporosis DEXA (modify frequency per FRAX score) [place] Start: 1994 Breast cancer screen Breast cancer screen [place] Start: 1994 Colon cancer screen colonoscopy Colon cancer screen colonoscopy [place] Start: 1994 Screening for malignant neoplasm of breast Breast cancer screen [place] Start: 1994 Screening for malignant neoplasm of colon Colon cancer screen colonoscopy [place] Start: 1994 Shingles Vaccine (1 of 2) Shingles Vaccine (1 of 2) [place] Start: 1984 Lipid screen Lipid screen [place] Start: 1965 Screening for malignant neoplasm of cervix [facility] Start: 10-26-1963 DTaP/Tdap/Td vaccine (1 - Tdap) DTaP/Tdap/Td vaccine (1 - Tdap) [place] Start: 10-26-1963 Third diphtheria, tetanus and acellular pertussis (DTaP) vaccination [facility] Start: 10-26-1963 [facility] Start: 1962 BP CONTROLLED (<130/80) BP CONTROLLED (<130/80) [facility] Start: 1962 HEPATITIS C SCREENING HEPATITIS C SCREENING [facility] Start: 1954 Lipid panel Lipid screen [place], [place] Start: 1944 Creatinine measurement Creatinine monitoring [place], [place] Start: 1944 Creatinine monitoring Creatinine monitoring [place], [place] Start: 1944 Hepatitis C screen Hepatitis C screen [place] Start: 1944 Hepatitis C screening [facility] Start: 1944 Potassium monitoring Potassium monitoring [place] Start: 1944 Screening for osteoporosis [facility] Start: 1944 Tetanus vaccination [facility] End: 01-09-2019 Blood glucose - POCT Blood glucose - POCT Point of Care Testing Routine One Time for 1 Occurrences starting 01/09/2019 until 01/09/2019 [facility] Comment on above: One Time for 1 Occurrences starting 12/14 until 01/09/2019 ECG COMPLETE [facility] Comment on above: Ordered: 05/31/2024 End: 05-31-2025 Echocardiography ECHO Cardiology Routine Atrial fibrillation, unspecified type (HCC) 1 Occurrences starting 05/31/2024 until 05/31/2025 [facility] Comment on above: 1 Occurrences starting 05/31/2024 until 05/31/2025 Patient referral [facility] Work Phone: End: 01-09-2019 Pulse Oximetry Spot Check Pulse Oximetry Spot Check Respiratory Care Routine One Time for 1 Occurrences starting 01/09/2019 until 01/09/2019 [facility] above: One Time for 1 Occurrences starting 12/14 until 01/09/2019 End: 08-02-2024 PV FLUOROSCOPY OR [facility] End: 08-02-2024 Standard ECG [facility] Immunizations Immunization Date Immunization Notes Care Provider Paramjit hassan 07-23-2020 SARS-CoV-2 (COVID-19 ) Ad26 vaccine, recombinant SILVINO HA DO [facility] Comment on above: Result Comment: 2024: [id number] 02-27-2020 influenza, high dose seasonal, preservative-free Kameron Caruso MD Work Phone: [facility] 02-27-2020 influenza virus vaccine, unspecified formulation Kameron Caruso MD Work Phone: Tyler Garcia 10-24-2019 pneumococcal conjuga te vaccine, 13 valent Kameron Caruso MD Work Phone: [facility] 10-24-2019 zoster vaccine recombinant Kameron Caruso MD Work Phone: [facility] 07-25-2019 influenza virus vaccine, unspecified formulation SILVINO HA DO [facility] 07-25-2019 influenza, seasonal, injectable Kameron Caruso MD Work Phone: [facility] 07-25-2019 zoster vaccine recombinant Kameron Caruso MD Work Phone: [facility] 04-13-2015 influenza virus vaccine, unspecified formulation SILVINO HA DO [facility] 05-01-2014 influenza virus vaccine, unspecified formulation SILVINO HA DO [facility] 05-01-2014 influenza, high dose seasonal, preservative-free Kameron Caruso MD Work Phone: [facility] 02-22-2012 influenza virus vaccine, unspecified formulation Kameron Caruso MD Work Phone: [facility] Work Phone: 03-19-2007 influenza virus vaccine, unspecified formulation Kameron Caruso MD Work Phone: [facility] Work Phone: Payers Date Payer Category Payer Medicare [id number] 2024 Unknown [id number] 2024 Self-pay 2018 Medicare [employer] RE ADVANTAGE [facility] x[facility]xx 2018-Present [phone] [address] [place] [address] xxxxxxxxxxx [id number] 2018 Unknown [id number] 2013 [place] [id number] 2013-Present [phone] [address] [place] [address] [facility] [id number] .[id number] 2013 Medicare [id number] 1.13.159.2 .[id number] 2013 Medicare (Managed Care) 1.2. [id number] .[id number] 2013 Medicare [id number] 1944 Unknown [id number] 2.16.840.1.459385.3.579.2 .627 1944 Unknown [id number] 2.16.840.1.307227.3.579.2 .732 1944 Unknown [id number] 2.16.840.1.724263.3.579.2 .594 1944 Unknown [id number] 2.840.1.776864.3.579.2 .594 1944 Unknown [id number] 2.16.840.1.259115.3.579.2 .627 Unknown [id number] 2.16.840.1.295177.3.579.2 .462 Unknown [id number] 2.16.840.1.093882.3.579.2 .462 Unknown [id number] 2.16840.1.595083.3.579.2 .462 Unknown [id number] 2.16.840.1.781159.3.579.2 .462 Unknown [id number] 2.16.840.1.693211.3.579.2 .462 Unknown [id number] 2.16.840.1.168075.3.579.2 .462 Unknown [id number] 2.16.840.1.523527.3.579.2 .462 Unknown [id number] 2.16.840.1.150571.3.579.2 .462 Unknown [id number] 2.16.840.1.456963.3.579.2 .462 Unknown [id number] 2.16.840.1.945730.3.579.2 .462 Unknown [id number] 2.16.840.1.335461.3.579.2 .462 Unknown [id number] 2.16.840.1.744559.3.579.2 .462 Unknown [id number] 2.16.840.1.882278.3.579.2 .462 Unknown [id number] 2.16.840.1.265628.3.579.2 .462 Unknown [id number] 2.16.840.1.298007.3.579.2 .462 Unknown [id number] 2.16.840.1.557567.3.579.2 .462 Unknown [id number] 2.16840.1.907431.3.579.2 .462 Unknown [id number] 2.16840.1.003155.3.579.2 .462 Unknown [id number] 2.16840.1.327885.3.579.2 .462 Unknown [id number] 2.16840.1.961118.3.579.2 .462 Unknown [id number] 2.16840.1.932010.3.579.2 .462 Unknown [id number] 2.16840.1.313087.3.579.2 .462 Unknown [id number] 2.16.840.1.624601.3.579.2 .462 Unknown [id number] 2.16.840.1.363325.3.579.2 .462 Unknown [id number] 2.16.840.1.102464.3.579.2 .462 Unknown [id number] 2.16.840.1.480593.3.579.2 .462 Unknown [id number] 2.16.840.1.838747.3.579.2 .462 Unknown [id number] 2.16.840.1.911162.3.579.2 .462 Unknown [id number] 2.16.840.1.406708.3.579.2 .462 Unknown [id number] 2.16.840.1.084127.3.579.2 .462 Unknown [id number] 2.16.840.1.368119.3.579.2 .462 Unknown [id number] 2.16.840.1.084828.3.579.2 .462 Unknown [id number] 2.16.840.1.910442.3.579.2 .462 Unknown [id number] 2.16.840.1.348944.3.579.2 .462 Unknown [id number] 2.16.840.1.757253.3.579.2 .462 Unknown [id number] 2.16.840.1.088058.3.579.2 .462 Unknown [id number] 2.16.840.1.673069.3.579.2 .462 Unknown [id number] 2.16.840.1.498938.3.579.2 .462 Unknown [id number] 2.16.840.1.761517.3.579.2 .462 Unknown [id number] 2.16.840.1.548176.3.579.2 .462 Unknown [id number] 2.16.840.1.274688.3.579.2 .462 Social History Date Type Detail Facility Start: 01-09-2019 End: 08-02-2024 Tobacco smoking status VTIS Never smoker [facility] Start: 01-09-2019 End: 11-25-2022 Alcohol intake Never [facility] Work Phone: Start: 12-24-2018 History SDOH Alcohol Frequency 1 [place], [place] Start: 1945 Sex Assigned At Not on file M [place] Start: 10-16-2019 Alcohol intake Lifetime non-d hortencia (finding) [place] Exposure to SARS-CoV -2 (event) [facility] Start: 05-18-2021 End: 06-26-2024 Alcohol intake Current non-drinker of alcohol (finding) [facility] Start: 11-13-2021 End: 03-02-2022 Exposure to SARS-CoV-2 (event) Not sure [facility] Start: 02-02-2011 End: 03-02-2022 Tobacco use and exposure Smokeless tobacco non-user [facility] Start: 11-25-2022 End: 11-28-2023 History of Social function [facility] Work Phone: Adult Depression Screening Assessment 0 [facility] Work Phone: Start: 06-22-2005 End: 08-02-2024 Sex Female (finding) [facility] Start: 1945 Sex Assigned At Female [facility] Sexual Orientation [facility] Medical Equipment Procedure Code Equipment Code Equipment Original Text Equipment Identifier Dates [id number], [id number], [id number] Start: 11-30-2020 End: 04-08-2023 Comment on above: [...] performed [facility] 09-09-2024 Functional Status [facility] 09-09-2024 Functional Status Skin Care Prev entative Intervention(s) heel(s)s elevated [facility] 09-08-2024 Functional Status [facility] 09-08-2024 Functional Status [facility] 09-06-2024 Functional Status 11pm-7am [facility] 09-06-2024 Functional Status Antiembolism S tocking On/Re-applied bilateral knee high [facility] 09-05-2024 Functional Status Oral Care Maximum wilfred cho [facility] 09-05-2024 Functional Status [facility] 09-05-2024 Functional Status Done [facility] 09-04-2024 Functional Status [facility] 09-04-2024 Functional Status [facility] 09-03-2024 Functional Status NPO Status Maintained [facility] 09-03-2024 Functional Status None [facility] 09-03-[address] [facility] 08-29-[address] [facility] 08-29-[address] [facility] 08-27-2024 Functional Status Orthotics, Dev ice Worn Per Schedule Yes [facility] 08-27-[address] [facility] 08-26-[address] [facility] 08-23-[address] [facility] 08-23-2024 Functional Status Breakfast Percent 25 [facility] 08-20-[address] [facility] 08-19-[address] [facility] 08-16-2024 Functional Status Single level h ome, basement laundry [facility] 08-16-2024 Functional Status Outside Stairs Rail Rail on left going up [facility] 08-15-2024 Functional Status Sensory Defici ts Speech deficit [facility] 10-14-2014 Are you deaf, or do you have serious difficulty hearing No [facility] 10-14-2014 Are you blind, or do you have serious difficulty seeing, even when wearing glasses No [facility] 10-14-2014 Do you have serious difficulty walking or climbing stairs No [facility] 10-14-2014 Do you have difficul ty dressing or bathing No [facility] 10-14-2014 Because of a physica l, mental, or emotional condition, do you have difficulty doing errands alone such as visiting a physician's office or shopping No [facility] Mental Status Date Assessment Result Facility 09-09-2024 Mental Status Does not interact [facility] 09-08-2024 Mental Status [facility] 09-08-2024 Mental Status [facility] 08-02-2024 Cognitive function Awake;Alert;F ollows Commands [facility] Work Phone: 10-14-2014 Because of a physica l, mental, or emotional condition, do you have serious difficulty concentrating, remembering, or making decisions No [facility] Clinical Notes 11-03-2020 to 10-02-2024 Note Date & Type Note Facility 10-02-2024 Evaluation note Diagnosis Onset Date Resolution Acute ischemic right MCA stroke acute October 02, 2024 9:29am Essential hypertension acute 2024 9:29am Hyperlipidemia acute October 02, 2024 9:29am Paroxysmal atrial fibrillation with RVR acute October 02, 2024 9:29am [facility] Work Phone: 1(791) 185-546804-28-2025 Note Discharge Instructions Thank you for allowing [...] KAMERON CARUSO MD When:Within 3-7 days Where:[address] [place] [address]- Additional Information: Please schedule follow up PCP appointment for after discharge from SNF, Bring discharge instructions with you Follow Up with RIMMA POWERS MD When:10/08/2024 04:00 PM EDT Where:[facility] ([address], [place]) Additional Information: Neurosurgeon The Following Activity and [...] standard right Seat cushion, 99 month(s), Tyler [id number], 09/02/24 8:22:00 EDT Transfer of Care Wound [...] depending on your insurance coverage. Check with yourETARGET company about what is covered. Keeping follow-up [...] 08/04/2017 Document Revised: 05/04/2018 Document Reviewed: 08/04/2017 [employer] Patient Education 2020 [employer]. Additional Information VACCINATE! IT SAVES LIVES! Members of the community who have not yet received the COVID-19 vaccine and would like to receive it can visit one of [facility] vaccine clinics. There are many vaccine clinic locations within the [facility]. For locations and available times, please visit [email or web address] It is important to note that some COVID mobile vaccine clinics are held outdoors and may be canceled in rainy or stormy conditions. To learn more about pediatric vaccinations (ages 5-11), we invite you to visit the [facility] webpage. [email or web address] learn more about the COVID-19 vaccine, we invite you to visit the CDC website for a list of frequently asked questions.https://www.cdc.gov/coronavirus/2019-ncov/vaccines/faq.html [facility] Patient Portal Access Instructions: Stay connected with your healthcare team and access your personal medical information anytime with the [facility] Patient Portal. Please follow the directions below to create your [facility] account: 1.Access the email account you provided upon registration to the hospital/physician office.2.Look for an invitation email from [facility].3.Open the email and access the invitation link: AcceptInvitation to [facility].4.Fill in the required richards to create your account. To access your account, visit Remote Assistant/[facility]. Click the blue button labeled "Access Patient [...] who you will allowto register on the [facility] Patient Portal for access to your information. You can also access the [facility] on the [facility] dahlia. Simply click on "Patient Portal" and then log into your account. If you would like to receive a full copy of your medical records, please contact the [facility] Medical Records Department by calling [phone], Monday through Monday between 8 a.m. and [...] Call your local pharmacy or go to [email or web address] to find one close to you.3.Make use of household items: Use cat litter or old coffee grounds to dispose medications if other options arenot available. Mix your drugs with these household products, seal them in an airtight container andthrow it into the garbage. Call [facility]: [phone] to be sure your drugs can be [...] that I should contact my doctor. Patient/Road Crew Member Signature: Date/Time: Relationship to Patient: Witness Name/Signature: Date/Time: Tyler [id number] Note Discharge Instructions Thank you for allowing [...] KAMERON CARUSO MD When:Within 3-7 days Where:[address] [place] [address]- Additional Information: Please schedule follow up PCP appointment for after discharge from SNF, Bring discharge instructions with you Follow Up with RIMMA POWERS MD When:10/08/2024 04:00 PM EDT Where:[facility] ([address], [place]) Additional Information: Neurosurgeon The Following Activity and [...] standard right Seat cushion, 99 month(s), Tyler [phone], 09/02/24 8:22:00 EDT Transfer of Care Wound [...] depending on your insurance coverage. Check with yourETARGET company about what is covered. Keeping follow-up [...] 08/04/2017 Document Revised: 05/04/2018 Document Reviewed: 08/04/2017 [id number] Patient Education 2020 [employer]. Additional Information VACCINATE! IT SAVES LIVES! Members of the community who have not yet received the COVID-19 vaccine and would like to receive it can visit one of [facility] vaccine clinics. There are many vaccine clinic locations within the [facility]. For locations and available times, please visit [email or web address] It is important to note that some COVID mobile vaccine clinics are held outdoors and may be canceled in rainy or stormy conditions. To learn more about pediatric vaccinations (ages 5-11), we invite you to visit the [facility] webpage. [email or web address]/[email or web address] [email or web address] learn more about the COVID-19 vaccine, we invite you to visit the CDC website for a list of frequently asked questions.https://www.cdc.gov/coronavirus/2019-ncov/vaccines/faq.html [facility] Patient Portal Access Instructions: Stay connected with your healthcare team and access your personal medical information anytime with the [facility] Patient Portal. Please follow the directions below to create your [facility]Pub account: 1.Access the email account you provided upon registration to the hospital/physician office.2.Look for an invitation email from [facility].3.Open the email and access the invitation link: AcceptInvitation to [facility].4.Fill in the required richards to create your account. To access your account, visit [email or web address] [email or web address]. Click the blue button labeled "Access Patient [...] who you will allowto register on the [facility] Patient Portal for access to your information. You can also access the [facility] Patient Portal on the [place] [facility] dahlia. Simply click on "Patient Portal" and then log into your account. If you would like to receive a full copy of your medical records, please contact the [facility] Medical Records Department by calling [phone], Monday through Monday between 8 a.m. and [...] Call your local pharmacy or go to http://bit.code-laboration/0Z1Si9s to find one close to you.3.Make use of household items: Use cat litter or old coffee grounds to dispose medications if other options arenot available. Mix your drugs with these household products, seal them in an airtight container andthrow it into the garbage. Call [facility]: [phone] to be sure your drugs can be [...] that I should contact my doctor. Patient/Road Crew Member Signature: Date/Time: Relationship to Patient: Witness Name/Signature: Date/Time: [facility] [id number] Physical medicine and rehab Discharge summary Date [...] in discharge valuation. She was admitted to [facility] re[facility] unit from [facility] stay 08/02 - 08/15 who has a history of CAD, DM2, atrial fibrillation and hypertension whopresented to the ER after noting left-sided weakness and slurred speech. Originally presented to [facility] where CT head was obtained showing [...] self-care assistance needs decision made to request long-term facility. Approval is requested. 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 tyrtwqifxhcur90 Microgram PEG tube once a day. metoprolol [...] KAMERON CARUSO MD When:Within 3-7 days Where:[address] [place] [address]- Additional Information: Please schedule follow up PCP appointment for after discharge from SNF, Bring discharge instructions with you Follow Up with RIMMA POWERS MD When:10/08/2024 04:00 PM EDT Where:[facility] ([address], [place]) Additional Information: Neurosurgeon Follow Up Appointments No [...] HA DO on 09/09/2024 01:46 PM [facility] GarciaKadexnun55-17-0214 Nurse Progress note Nursing GG Entered On: 09/09/2024 10:55 EDT Performed On: 09/09/2024 10:55 EDT by Abigail Rodas RN Nursing GG's OT GG Grid Eating : Not Completed Abigail Rodas RN - 09/09/2024 10:55 EDT Digitally Signed by Abigail Rodas RN on 09/09/2024 10:55 AM [place] [address]-27-2025 Nurse Progress note Nursing GG Entered On: 09/08/2024 17:39 EDT Performed On: 09/08/2024 17:39 EDT by Rob Alarcon RN Nursing GG's OT GG Grid Eating : Not Completed Oral Hygiene : Not Completed Toilet Hygiene : Substantial/Maximal Assistance Toilet Transfer : Substantial/Maximal Assistance Rob Alarcon RN - 09/08/2024 17:39 EDT Digitally Signed by Rob Alarcon RN on 09/08/2024 05:39 PM [facility]3712 Nurse Progress note Pt had 250ml residual, 12:30pm bolus was held! Digitally Signed by Rob Alarcon RN on 09/08/2024 12:47 PM [place] [address]-25-2025 Physical medicine and rehab Progress note Rehab [...] and slurred speech. She originally presented to [facility] with CT of the head was obtained showed no acute hemorrhage or large territory stroke. CTA showed mid right M1 occlusion however patient was not a TNK candidate. She was then transferred to a [facility] for further management. CT of [...] 80 mg 1 tab(s), PEG, Daily balsam Hastings-castor oil topical 87 mg-788 mg/g oint 60g [...] Rate64(SEP 05 16:46)64(SEP 05 16:46)85(SEP 05 09:40) NGK413(SEP 05 16:36)138(SEP 05 16:36)H 158(SEP 05 09:52) [...] HA DO on 09/06/2024 12:34 PM [facility] GarciaMqazsbqy03-51-7018 Hospital Discharge instructions Patient Education 09/05/2024 14:15:00 [...] depending on your insurance coverage. Check with yourETARGET company about what is covered. Keeping follow-up [...] 08/04/2017 Document Revised: 05/04/2018 Document Reviewed: 08/04/2017 e994 Patient Education 2020 Errund. Follow Up Care 08/15/2024 08:51:25 With:RIMMA POWERS MD Address: [facility] ([address], [place]) When:10/08/2024 16:00:00 Comments:Neurosurgeon With:JONNIE BANSAL MD Address: [facility] When: Unknown Comments:GI, No appointment needed until PEG is ready to be removed or concerns arise With:KAMERON CARUSO MD Address: [address] [place] [address]- When:3-7 days Comments:Please schedule follow up PCP [...] less than 3 seconds. Ongoing hemiparesis VITALS XblrilHylpBDHmqrzNDCtA4IDH3SprpTr(kg) 09/05 09:5236.3--546566SB 09/05 09:40----85----RA 09/04 23:3236.6--928626YO 09/04 21:2436.5--114922QR 09/04 16:01----72----RA 24 Hr Tmax: 36.6 at [...] tab(s), PEG, Daily, 08/15/24 17:09:00 EDT balsam Hastings-castor oil topical (Venelex 788 mg-87 mg/g topical [...] 2 minutes, REPEAT x1., 1st dose location: [facility], 0, 08/15/24 1... glucose (Dextrose 50% [...] None Problems (6) CVA (cerebral vascular accident) (237424756) Diabetes mellitus (233546091) Dysphagia (96136253) Hyperlipidemia (18001931) Hypertension (1324872726) Osteoarthritis (6544063635) ASSESSMENT/PLAN: Right basal ganglia hemorrhage, status post thrombectomy with revascularization follow-up appointment with neurosurgery on 10/08. Continue work with physical and Occupational Therapy with goal to return home at discharge. reports that referrals have been sent to long-term facilities yesterday. Currently has 4 options in [...] presence of Catherine Newman APRN I, Julie Spenser, SPUN PASTE MACHINE OPERATOR, personally performed the services described in this documentation, as Destiny qiu RN in my presence and it is both accurate and complete. Digitally Signed by CATHERINE NEWMAN APRN-GARRETT on 09/05/2024 04:55 PM [facility] GarciaBwjygltq55-47-5346 Physical medicine and rehab Progress note Subjective [...] area Neuro: Left upper extremity hemiparesis VITALS OabnztPauzQYDiihcRCRnA2OBN4RdmfWr(kg) 09/04 23:3236.6--878527WH 09/04 21:2436.5--960943LR 09/04 16:01----72----RA 09/04 12:10--------97RA 09/04 10:5435.9--337543VF 24 Hr Tmax: 36.6 at 09/04 23:32 [...] None Problems (6) CVA (cerebral vascular accident) (984124105) Diabetes mellitus (452521079) Dysphagia (94516970) Hyperlipidemia (12552304) Hypertension (9483656043) Osteoarthritis (2369281946) ASSESSMENT/PLAN: Acute right basal ganglia hemorrhage with [...] NANDO HUTTON DO on 09/05/2024 10:12 AM [facility]rdaifby64-47-9006 Physical medicine and rehab Progress note Rehab [...] and slurred speech. She originally presented to [facility] with CT of the head was obtained showed no acute hemorrhage or large territory stroke. CTA showed mid right M1 occlusion however patient was not a TNK candidate. She was then transferred to a [facility] for further management. CT of [...] Rate64(SEP 03 15:52)64(SEP 03 15:52)90(SEP 03 08:28) WTX078(SEP 04 05:38)112(SEP 04 05:38)127(SEP 03 08:00) DBP70(SEP [...] HA DO on 09/04/2024 11:55 AM [facility] Njfiuxss15-11-5805 Note Subjective Patient states she is doing [...] area Neuro: Left upper extremity hemiparesis VITALS CoaumfHdtjPKPvoddNMYrG3IWI5JjobHb(kg) 09/03 21:4136.4--261064KZ 09/03 15:52----64---- 09/03 08:46 09/03 08:28----90---- 09/03 08:0036.4--777204FE 24 Hr Tmax: 36.4 at 09/03 21:41 [...] None Problems (6) CVA (cerebral vascular accident) (926161518) Diabetes mellitus (575903463) Dysphagia (43764915) Hyperlipidemia (97417659) Hypertension (9924545925) Osteoarthritis (8559130771) ASSESSMENT/PLAN: Acute right basal ganglia hemorrhage with [...] HUTTON DO on 09/05/2024 08:57 AM [facility] GarciaTkhnokjo45-03-6904 Note Subjective Patient states that she is [...] area Neuro: Left upper extremity hemiparesis VITALS BsegfoAlqyYOOzfxeXCGaQ2AGK9XlsqOx(kg) 09/03 00:2636.3--074496GT 09/02 21:5136.2--834576AC 09/02 16:56----88--98RA 09/02 10:40 RA 09/02 09:0936.0--759131JX 24 Hr Tmax: 37.0 at 09/02 05:55 [...] tab(s), PEG, Daily, 08/15/24 17:09:00 EDT balsam Hastings-castor oil topical (Venelex 788 mg-87 mg/g topical [...] SBP (mmHg) < 110, 1st dose location: [facility], 1, 08/15/24 17:09:00 EDT oxybutynin (oxybutynin [...] 2 minutes, REPEAT x1., 1st dose location: [facility], 0, 08/15/24 1... glucose (Dextrose 50% [...] None Problems (6) CVA (cerebral vascular accident) (392836524) Diabetes mellitus (171999248) Dysphagia (41348172) Hyperlipidemia (19507181) Hypertension (7601041265) Osteoarthritis (3736665336) ASSESSMENT/PLAN: Acute right basal ganglia hemorrhage with [...] NANDO HUTTON DO on 09/05/2024 08:57 AM [facility] CenterJhfxrzet41-14-7099 Note* Exam Date Time Procedure Performing Provider Status 09/02/24 2:[address] Head or Brain w/o Contrast Brenda MCCLELLAN MD; Auth (Verified) [id number] ORIGINAL HISTORY: Lethargy COMPARISON: No TECHNIQUE: Routine [...] - 08/30/2024 10:09 AM EDT Marya with [facility] notified. [facility]04-18-2025 Miscellaneous Notes* Telephone Encounter - Fouzia Miller LPN - 08/30/2024 10:09 AM EDT Marya with [facility] notified. * Telephone Encounter - Mj Glover APRN.CNP - 08/30/2024 9:19 AM EDT Please let HH know that Dr. Caruso's team will follow HH orders. Okay to proceed. Mj Glover APRN.PLANT TECHNICIAN/CONTROL ROOM OPERATOR * Telephone Encounter - Jaiden Paulino RN - 08/30/2024 9:07 AM EDT Marya- [facility] reports patient was in [facility] with dx: stroke, and [facility]. Pt will be discharged from [facility] on 09/07/24 to home with [facility] SN PT OT ST & HHAide. Asking if pcp agreeable to follow for C. Please phone Marya with verbal: [phone] documented in this encounterBarney [facility]04-[facility]-2025 Telephone encounter Note * Telephone Encounter - Mj Glover APRN.GARRETT - 08/30/2024 9:19 AM EDT Please let know that Dr. Caruso's team will follow orders. Okay to proceed. Mj Glover APRN.GARRETT [facility]04-18-2025 Telephone encounter Note* Telephone Encounter - Jaiden Paulino RN - 08/30/2024 9:07 AM EDT [facility] reports patient was in [facility] with dx: stroke, and transferred to [facility]. Pt will be discharged from [facility] on 09/07/24 to home with [facility] SN PT OT ST & HHAide. Asking if pcp agreeable to follow for [facility]. Please phone Marya with verbal: [phone] [facility]04-14-2025 Note REFERRING PHYSICIAN: Silvino Ha DO. CONSULTING PSYCHOLOGIST: Matthew Gibson, PhD. REASON FOR REFERRAL: Neuropsychological exam. HISTORY OF PRESENT ILLNESS: Ms. Acuna is a 78-year-old right-handed white female admitted to [facility] from [facility] on 08/15/2024 after developing left-sided weakness and slurred speech. Initially seen at [facility] where brain CT was negative.CTA then [...] upper endoscopy showed gastric ulcer with erosion. Elimikey was stopped andshe was taking only 81 mg aspirin. PAST MEDICAL HISTORY: Includes coronary artery disease, type 2 diabetes, atrial fibrillation, hypertension, hyperlipidemia. The patient has several mild concussions suffered after a career in [employer]. No residual deficits reported. 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 MENTAL HEALTH HISTORY: No [...] of NPO. and Mrs. Acuna live in [place]. 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 She has a high school diploma from her hometown in [place], [place]. TEST RESULTS: I used the Cognistat, [...] be determined. MATTHEW GIBSON, PhD GM/NTS JOB#: [id number] DICTATION ID#: [id number] Digitally Signed by MATTHEW GIBSON PhD on 08/27/2024 08:21 AM [facility] CenterUotdrels50-19-7375 Note* Exam Date Time Procedure Performing Provider Status 08/25/24 1:46 PM XR Hand and Wrist 6 Views Left Buck DUNNE DO; Auth (Verified) [id number] ORIGINAL EXAMINATION: 3 XRAY VIEWS OF THE [...] Views Left JAMAR DUNNE DO; Auth (Verified) [id number] ORIGINAL EXAMINATION: TWO XRAY VIEWS OF THE [...] Views Left JAMAR DUNNE DO; Auth (Verified) [id number] ORIGINAL EXAMINATION: TWO XRAY VIEWS OF THE [...] 1 View Contributor_system, FUJ I; Auth (Verified) [id number] ORIGINAL EXAMINATION: ONE XRAY VIEW OF THE [...] Plan noteExtracted from: Title:Clinical Document Author:EZEQUIEL HUSTON RN-PLANT TECHNICIAN/CONTROL ROOM OPERATOR Date:08/16/24 Acute Inpatient Rehab Histor y and Physical Date of Service: 08/16/2024 Date of Admission: 08/15/2024 Attending Physician: Dr. Ha Impairment Group 1.1 left body involvement, right brain stroke Etiologic Diagnosis Hemorrhagic infarct involving right basal ganglia, mass effect with effacement of right lateral ventricle, tiny infarct in right cerebellum History of Present Illness 78-year-old female noted to home in inpatient rehab from [facility] stay 08/02 - 08/15 who is past medical history of coronary artery disease, diabetes mellitus type 2, atrial relation, hypertension, osteoarthritis, and hyperlipidemia who presented to the emergency room with noted left-sided weakness and slurred speech. She originally presented to [facility] with CT of the head was obtained showed no acute hemorrhage or large territory stroke. CTA showed mid right M1 occlusion however patient was not a TNK candidate. She was then transferred to a [facility] for further management. CT of [...] feedings. Patient deemed medically stable transferred to [place] inpatient rehab unit for physical and occupational [...] with spouse, first- floor set up. Primary Thread Tool Grinder Set Up Operator: Self. Safe place to go: Yes. [...] Rate80(AUG 15 20:06)80(AUG 15 20:06)80(AUG 15 20:06) NCB790(AUG 16 00:03)128(AUG 16 00:03)140(AUG 15 17:47) DBP76(AUG 16 00:03)76(AUG 16 00:03)80(AUG 15 17:47) 36hr Labs 08/15 1805 Blood Glucose, Ecqhukxgl334M Blood Glucose, Ftlxvmvvu685K Blood Glucose TSee Flowsheet Assessment/Plan Debility and [...] it is both accurate and complete. [facility] 04-04-2025 Physical medicine and rehab Consult note INPATIENT REHAB MEDICAL CONSULT DATE OF ADMISSION: 08/16/2024 CC: Acute right basal hemorrhage HISTORY OF PRESENT ILLNESS: This is a 78-year-old female admitted to [facility] re[facility] unit from [facility] stay 08/02 - 08/15 who has a history of CAD, DM2, atrial fibrillation and hypertension who presented to the ER after notingleft-sided weakness and slurred speech. Originally presented to [facility] where CT head was obtained showing [...] was deemed medically stable and transferred to [facility] unit for physical and occasional [...] Rate80(AUG 15 20:06)80(AUG 15 20:06)80(AUG 15 20:06) TXM156(AUG 16 00:03)128(AUG 16 00:03)140(AUG 15 17:47) DBP76(AUG [...] reviewed. 36hr Labs 08/15 1805 Blood Glucose, Glhckoqcr074C Blood Glucose, Oyhxfwsbw049M Blood Glucose TSee Flowsheet ASSESSMENT AND PLAN: [...] will follow during acute rehabilitation stay at [facility] with the [...] by CATHERINE NEWMAN on 08/17/2024 04:53 PM [facility] CenterFbhgliqk66-22-6993 Physical medicine and rehab History and physical [...] noted to home in inpatient rehab from [facility] stay 08/02 -08/15 who is past medical history of coronary artery disease, diabetes mellitus type 2, atrial relation, hypertension, osteoarthritis, and hyperlipidemia who presented to the emergency room with noted left-sided weakness and slurred speech. She originally presented to [facility] with CT of the head was obtained showed no acute hemorrhage or large territory stroke. CTA showed mid right M1 occlusion however patient was not a TNK candidate. [facility] [...] feedings. Patient deemed medically stable transferred to [facility] rehab unit for physical and occupational [...] with spouse, first- floor set up. Primary Thread Tool Grinder Set Up Operator: Self. Safe place to go: Yes. [...] Rate80(AUG 15 20:06)80(AUG 15 20:06)80(AUG 15 20:06) UOS397(AUG 16 00:03)128(AUG 16 00:03)140(AUG 15 17:47) DBP76(AUG 16 00:03)76(AUG 16 00:03)80(AUG 15 17:47) 36hr Labs 08/15 1805 Blood Glucose, Oavxtqosl962E Blood Glucose, Culnzzhle188E Blood Glucose TSee Flowsheet Assessment/Plan Debility and [...] by EZEQUIEL HUSTON on 08/22/2024 05:17 AM [place] [address]-03-2025 Miscellaneous Notes* Nursing Notes - Robson Steel [...] pacing over x3-5 sessions Outcome: Ongoing Problem: TROMBONE SLIDE ASSEMBLER - Cognition Goal: Orientation Log - Patient [...] pacing over x3-5 sessions Outcome: Ongoing Problem: TROMBONE SLIDE ASSEMBLER - Cognition Goal: Orientation Log - 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 - If used custodial, initial PEG should be changed in 6-12 months depending on tube condition. - No plans for repeat outpatient EGD at this time based on clinical status Jonnie Mccabe MD Division of Gastroenterology, Hepatology, and Nutrition Clinical Fellow PGY-4 Pager: [phone] * Plan of Care - Manisha Cheema [...] what the specific medication was. Daughter, Keagan [phone] would be able to answer questions. Catherine [...] Outcome: Ongoing * Plan of Care - Floridna Velasquez, PT - 08/08/2024 12:54 PM EDT [...] 5:00 PM EDT On admission to [facility], from another [facility] inpatient unit a [...] oropharyngeal swallow function to most appropriately guide TROMBONE SLIDE ASSEMBLER plan of care Outcome: Met Goal: Bolus [...] readiness for diet advancement Outcome: Met Problem: TROMBONE SLIDE ASSEMBLER - Cognition Goal: Orientation Log - Patient [...] better assess deficits and most appropriately guide TROMBONE SLIDE ASSEMBLER plan of care Outcome: Met Goal: Attention: [...] of Care: 1. Diet: NPO. Advancement per team/TROMBONE SLIDE ASSEMBLER recommendation 2. Ordered TF: Glucerna 1.5 @ [...] readiness for diet advancement Outcome: Ongoing Problem: TROMBONE SLIDE ASSEMBLER - Cognition Goal: Orientation Log - Patient [...] better assess deficits and most appropriately guide TROMBONE SLIDE ASSEMBLER plan of care Outcome: Ongoing * Nursing [...] change from previous assessment. Pt transferred to [facility] via cart accompanied by Denae [...] under emergency consent. SURGEON(S): Prema Ramos MD PILLOWCASE CUTTER(S): None ANESTHESIA: Monitored anesthesia care DESCRIPTION OF [...] Freeclimb 70/Serjio 7 was advanced over a [employer] Groupman microcatheter which was advanced over a synchro [...] - 08/02/2024 3:26 PM EDT Lindsay Acuna ([id number]) PRE OPERATIVE DIAGNOSIS Cerebral infarction due to [...] - Primary ANESTHESIOLOGIST Anesthesiologist: Tameka Ruth MD LIBRARY CLERK: Bebo Barboza APRN-LIBRARY CLERK SURGICAL STAFF [employer] Truck Driver: Rachell Ruffin RN Reverse Unit Operator Fisherman: Paulina Muñiz; Radha Morales COMPLICATIONS None ESTIMATED BLOOD LOSS Minimal SPECIMENS No specimen sent * No specimens in log * Prema Ramos MD August 02, 2024 3:26 PM documented [facility]OS[facility] History of Present illness Narrative* OWEN Benavides - 08/15/2024 9:01 AM EDT Care Management Discharge Note Selected Continued Care - Admitted Since 08/02/2024 Destination Coordination complete. Service Provider Services Address Phone Fax Patient Preferred [facility] [address] [place] [phone] -- -- Internal Comment last updated by OWEN Benavides 08/15/2024 0901 Report fax: [phone] Transport Request Mode of Transfer: [facility] Name of Discharge Transport Company: [employer] Discharge Transport ETA: 08/15/2024 @ 1030 Patient medically stable for discharge per physician/medical team. Pt has neurology appointment scheduled. Pt/ to schedule appointment with PCP. Patient/Road Crew Member remain in agreement withthe discharge plan. BULMARO Allen Medicine Aide * OWEN Benavides - 08/14/2024 3:17 PM EDT Placement Plan Expected Discharge Date: 08/15/2024 Referred Level of Care: IPR Current Referrals and Status 1. [facility]-accept[facility] obtained precertification for Pt starting tomorrow. Pt is set-up to leave via ambulance tomorrow at 1030. CM updated Pt's by phone. IPR will provide CM with the best phone and fax numbersfor RN report tomorrow morning. BULMARO Allen Medicine Aide * Marybeth Ayoub - 08/14/2024 2:51 PM EDT Care Management Progress Note Transportation for discharge arranged Mode of Transfer: (P) BLS Name of Discharge Transport Company: (P[facility] ETA: (P) 08/15/2024 @ 1030 Pick-up from [facility] 1032/A Destination [facility] [address] [place] [address] OWEN Morrell Medicine Aide Insurance Claims Examiner [phone] * Jazzy Aguiar - 08/14/2024 9:47 AM [...] position Mobility Assessment/Intervention: Supine to Sit Mobility [place] Level: Supine->Sit: moderate assist (50% patient effort) Physical Assist: Supine->Sit: 2 person assist Bed Features/Set-up: Supine->Sit: Head of bed elevated, Use of bed rail Skilled Rationale: Verbal cues, Tactile cues, Hand placement, Positioning, Technique of activity Skilled Intervention/Details: Supine->Sit: Cues for technique of transfer and pt needing increased assistance for managing legs and trunk to EOB positioning Transfer Assessment/Intervention: Sit to Stand Transfer [place] Level: Sit->Stand: moderate assist (50% patient effort) [...] hand held support Stand to Sit Transfer [place] Level: Stand->Sit: moderate assist (50% patient effort) Physical Assist: Stand->Sit: 2 person assist Assistive Device: Stand->Sit: gait belt, hand held assist Skilled Rationale: Verbal cues, Tactile cues, Hand placement, Positioning, Controlled descent for sitting Skilled Intervention/Details: Stand->Sit: Cues for positioning with BSC and recliner, pt provided bilat hand held support and needing increased support for managing a controlled descent Bed-Chair Transfer [place] Level: Bed<->Chair: maximum assist (25% patient effort) [...] managing L side during transfer Toilet Transfer [place] Level: Toilet: moderate assist (50% patient effort) [...] upright gaze when standing Outcome Score(s): CURRENT [facility] Daily Activity Inpatient Short Form Putting on/Taking Off Lower Body Clothin - Total Assistance Bathin - A Lot of Assistance Toiletin - Total Assistance Putting on/Taking Off Upper Body Clothin - A Little Assistance Groomin - A Little Assistance Eatin - Total Assistance CURRENT [facility] Activity Raw Score: 11 CURRENT [facility] Activity Functional Limitation/Modifier: 70.42% Currently Impaired in [...] person, Oriented to place, Oriented to situation ("[place]" "hospital" "September" "2024" "stroke") Following Commands: Follows [...] blocking Mobility Assessment/Intervention: Supine to Sit Mobility [place] Level: Supine->Sit: moderate assist (50% patient effort) [...] sitting) Transfer Assessment/Intervention: Sit to Stand Transfer [place] Level: Sit->Stand: moderate assist (50% patient effort) Physical Assist: Sit->Stand: 2 person assist Assistive Device: Sit->Stand: gait belt Skilled Rationale: Arm in arm, Patellar block, Ischial assist, Facilitate anterior shift, Full extension to upright positioning/posture, Finding/maintaining midline positioning Skilled Intervention/Details: Sit->Stand: repeat cues to avoid significant L lean with improvement last standing. x1 from EOB, x2 from BSC Stand to Sit Transfer [place] Level: Stand->Sit: moderate assist (50% patient effort) Physical Assist: Stand->Sit: 2 person assist Assistive Device: Stand->Sit: gait belt Skilled Rationale: Arm in arm, Controlled descent for sitting Skilled Intervention/Details: Stand->Sit: last trial assisted R hand to recliner arm rest and ongoing cues for wt shift to R Bed-Chair Transfer [place] Level: Bed<->Chair: maximum assist (25% patient effort) [...] Mobility Assessment/Intervention: Stairs Assessment/Intervention: Outcome Score(s): CURRENT [facility] Basic Mobility Inpatient Short Form Turning over in bed: 2 - A Lot of Assistance Moving from lying on back to sittin - Total Assistance Moving to and from bed to chair: 1 - Total Assistance Sitting/standing from chair: 2 - A Lot of Assistance Walk in hospital room: 1 - Total Assistance Climbing 3-5 steps with a railin - Total Assistance CURRENT [facility] Mobility Raw Score: 8 CURRENT [facility] Mobility Functional Limitation: 86.62% Impaired in Basic [...] 10 Treating Therapist: Shaina Rosales PT, DPT [id number] 08/14/2024 Additional Details: PT Co-Eval/Treatment Information Co-evaluation/co-treatment [...] on the below outcome measures/assessment score(s) and TROMBONE SLIDE ASSEMBLER clinicaljudgment, discharge destination recommendation is: IPR Barriers to discharge home: 1:1 assist needed for IADL's including medication management and finances Supporting factors for discharge setting: Impaired swallow function limiting nutritional status andsafety with oral intake, Impaired cognitive skills limiting safety/insight Acute TROMBONE SLIDE ASSEMBLER Outcomes Tracking Communicate basic wants and needs?: [...] independent carry over. Strong family support. Ongoing TROMBONE SLIDE ASSEMBLER s indicated. Subjective information: Alert, present. SO referenced his notes from yesterday and reportedcarry over of exercises yesterday. Patient with zero recall Pain: Nonverbal indicator not present Precautions: Patient Safety Communication Prior to Visit: Nursing Lines/Tubes/Drains (Rehab Status): Telemetry, Tube feed Existing Precautions/Restrictions: fall Respiratory Status: O2 Sat (%): 96 % (08/14 0711) O2 Device: room air (08/14 0947) Acute TROMBONE SLIDE ASSEMBLER Goals Plan of Care by Tanja Cason TROMBONE SLIDE ASSEMBLER at 08/14/2024 2:42 PM Version 1 of [...] RoM to achieve technique. Outcome: Ongoing Problem: TROMBONE SLIDE ASSEMBLER - Cognition Goal: Orientation Log - Patient [...] next session: 08/14 - ongoing exercises, education TROMBONE SLIDE ASSEMBLER Outcomes: FOIS 2 Speech Language Pathologist: RIKI Blnacas Time In: 836 Time Out: 904 Total Visit Time: 28 minutes Total Treatment Time (skilled, billable minutes): 28 minutes Non-billable assistance during session: na Assisted by during session: na PPE used during patient interaction: gloves Patient location/status at end of session: bed with head of bed elevated Patient alarms at end of session: none altered Needs in reach. TROMBONE SLIDE ASSEMBLER Evaluation and Treatment Time Speech Therapy - Individual 04762: 14 Swallowing Dysfunction Treatment 62806: 14 Upon discontinuation of Acute Care Speech [...] on the below outcome measures/assessment score(s) and TROMBONE SLIDE ASSEMBLER clinicaljudgment, discharge destination recommendation is: Inpatient Rehab Facility Barriers to discharge home: 1:1 assist needed for IADL's including medication management and finances Supporting factors for discharge setting: Impaired swallow function limiting nutritional status andsafety with oral intake, Impaired cognitive skills limiting safety/insight Acute TROMBONE SLIDE ASSEMBLER Outcomes Tracking Communicate basic wants and needs?: [...] O2 Device: room air (08/13 710) Acute TROMBONE SLIDE ASSEMBLER Goals Plan of Care by Tanja Cason TROMBONE SLIDE ASSEMBLER at 08/13/2024 11:10 AM Version 1 of [...] 10 reps this session. Outcome: Ongoing Problem: TROMBONE SLIDE ASSEMBLER - Cognition Goal: Orientation Log - Patient [...] considerations: Cognition Patient Instruction/Education comments: Role of TROMBONE SLIDE ASSEMBLER, presence and normalized frustration with cognitive-communicative impairments. Focused on memory this date and that patient does not recall education so perseverative questions are normal. Reviewed intermittent silent aspiration from MBS last weekand ongoing signs of dysphagia this session, will plan to coordinate timing for repeat instrumentalwith care team Plan for next session: 08/13 -[facility] TROMBONE SLIDE ASSEMBLER Outcomes: FOIS 2 Speech Language Pathologist: RIKI [...] of session: none altered Needs in reach. TROMBONE SLIDE ASSEMBLER Evaluation and Treatment Time Speech Therapy - Individual 09637: 12 Swallowing Dysfunction Treatment 46657: 13 Upon discontinuation of Acute Care Speech Therapy Services or patient discharge from the hospital this note represents the current Speech Therapy Discharge Summary * OWEN Benavides - 08/12/2024 3:21 PM EDT Placement Plan Expected Discharge Date: 08/14/2024 Referred Level of Care: IPR Barriers: Medical Readiness & Precertification Current Referrals and Status 1. [facility]accept[facility] started precertification today. BULMARO [facility] Medicine Aide * Jazzy Aguiar - 08/12/2024 10:46 AM [...] sinkside Mobility Assessment/Intervention: Supine to Sit Mobility [place] Level: Supine->Sit: moderate assist (50% patient effort) [...] positioning Transfer Assessment/Intervention: Sit to Stand Transfer [place] Level: Sit->Stand: maximum assist (25% patient effort) [...] maintaining upright posture Stand to Sit Transfer [place] Level: Stand->Sit: maximum assist (25% patient effort) Physical Assist: Stand->Sit: 2 person assist Assistive Device: Stand->Sit: gait belt, hand held assist Skilled Rationale: Verbal cues, Tactile cues, Hand placement, Positioning, Controlled descent for sitting Skilled Intervention/Details: Stand->Sit: Cues for positioning with recliner and using BUEs to help with appropriate positoining of hips in chair Bed-Chair Transfer [place] Level: Bed<->Chair: maximum assist (25% patient effort) Physical Assist: Bed<->Chair: 2 person assist Assistive Device: Bed<->Chair: gait belt Skilled Rationale: Verbal cues, Tactile cues, Hand placement, Positioning, Technique of activity Skilled Intervention/Details: Bed<->Chair: x1 from EOB to recliner on R. Pt needing increasedsupport for managing L side and sequencing steps for appropriate positioning with recliner Outcome Score(s): CURRENT [facility] Daily Activity Inpatient Short Form Putting on/Taking Off Lower Body Clothin - Total Assistance Bathin - A Lot of Assistance Toiletin - Total Assistance Putting on/Taking Off Upper Body Clothin - A Lot of Assistance Groomin - A Lot of Assistance Eatin - Total Assistance CURRENT [facility] Activity Raw Score: 9 CURRENT [facility] Activity Functional Limitation/Modifier: 79.59% Currently Impaired in [...] speech and L hemiplegia. She presented to [facility] and was seen on Telestroke, NIHSS 12. [...] goal TF volume. Pt last assessed by TROMBONE SLIDE ASSEMBLER 08/08 with recommendations for NPO. S/p PEG [...] chips. Will also increase free water flushes. TROMBONE SLIDE ASSEMBLER to see pt tomorrow. Nutrition Focused Physical [...] kg (172 lb) 06/26/24 78.9 kg (174 lb)-[facility] 05/31/24 79 kg (174 lb 2.6 oz)-[facility] 11/28/23 80.6 kg (177 lb 9.6 oz)-[facility] 09/29/23 84 kg (185 lb)-[facility] meds reviewed: Scheduled: Reviewed, includes [...] Needs: Weight Used: 61 kg (IBW) EEN: 2649-2223 kcal/day (25-30 kcal/kg) EPN: 73-92 g/day (1.2-1.5 g/kg) EFN: 1830 mL/day (30 mL/kg) or per primary team Malnutrition Statement: Does the patient meet criteria for malnutrition: No *Based on [employer] and ASPEN Indicators to Diagnose Malnutrition (AAIM) criteria (2012) Tianna Murray RD, LD, [facility] Pager #[phone] * Katie Ramos, PT - 08/12/2024 10:22 [...] standing. Mobility Assessment/Intervention: Supine to Sit Mobility [place] Level: Supine->Sit: moderate assist (50% patient effort) Physical Assist: Supine->Sit: 2 person assist Bed Features/Set-up: Supine->Sit: Head of bed elevated Skilled Rationale: Verbal cues, Tactile cues, Hand placement, Technique of activity Skilled Intervention/Details: Supine->Sit: verbal/tactile cues for instruction on transfer technique and mod A x 2 for LE and trunk management. Transfer Assessment/Intervention: Sit to Stand Transfer [place] Level: Sit->Stand: maximum assist (25% patient effort) Physical Assist: Sit->Stand: 2 person assist Assistive Device: Sit->Stand: gait belt Skilled Rationale: Verbal cues, Tactile cues, Hand placement, Technique of activity Skilled Intervention/Details: Sit->Stand: x2 trials with verbal/tactile cues for instruction on transfer technique, hand placement, and blocking left knee. Bed-Chair Transfer [place] Level: Bed<->Chair: maximum assist (25% patient effort) Physical Assist: Bed<->Chair: 2 person assist Assistive Device: Bed<->Chair: gait belt Skilled Rationale: Verbal cues, Tactile cues, Hand placement, Technique of activity Skilled Intervention/Details: Bed<->Chair: x1 trial from EOB to chair to the right. Verbal/tactile cues for instruction on transfer technqiue, blocking left knee. Outcome Score(s): CURRENT [facility] Basic Mobility Inpatient Short Form Turning over in bed: 2 - A Lot of Assistance Moving from lying on back to sittin - Total Assistance Moving to and from bed to chair: 1 - Total Assistance Sitting/standing from chair: 1 - Total Assistance Walk in hospital room: 1 - Total Assistance Climbing 3-5 steps with a railin - Total Assistance CURRENT [facility] Mobility Raw Score: 7 CURRENT [facility] Mobility Functional Limitation: 92.36% Impaired in Basic [...] Re-Education Time Entry: 10 Treating Therapist: Katie Abernathy, PT Additional Details: PT Co-Eval/Treatment Information Co-evaluation/co-treatment [...] Physical Therapy Discharge Summary. * Radha Gr, SPUN PASTE MACHINE OPERATOR-PLANT TECHNICIAN/CONTROL ROOM OPERATOR - 08/11/2024 7:15 AM EDT NEUROVASCULAR STROKE SERVICE Daily Progress Note IDENTIFYING INFORMATION Lindsay Acuna MR# [id number] 08/11/2024 HISTORY OF PRESENT ILLNESS Lindsay Acuna is a 78 y.o. female with PMH significant for CAD, HTN, HLD, T2DM, Afib (on Eliquis, although patient reports she has not been taking it) who presents with L hemiplegia, slurred speech. LKW 0915 on 08/02, later found down with slurred speech and L hemiplegia. She presented to [facility] and was seen on Telestroke, NIHSS 12. [...] 2b revascularization. INTERVAL HISTORY 08/05: Transfer to [facility]. MBS tomorrow 08/06: Failed MBS. Increased lopressor. [...] today 08/11 -Rate controlled on metoprolol Dysphagia: -TROMBONE SLIDE ASSEMBLER following -NPO, DHT + TF -Failed MBS [...] Lindsay Acuna will likely be discharged to [facility] when medically ready Radha Gr, SPUN PASTE MACHINE OPERATOR-PLANT TECHNICIAN/CONTROL ROOM OPERATOR 08/11/2024 10:17 AM VITAL SIGNS Temp: [97.2 [...] for specific therapeutic recommendations, please see the dyeing machine feeder report of the speech pathologist. Examination performed [...] and neurological examinations as recorded by the APARTMENT MAINTENANCE TECHNICIAN repeated and confirmed. I have personally reviewed [...] tooth. Blood cx unremarkable. * Radha Gr, SPUN PASTE MACHINE OPERATOR-PLANT TECHNICIAN/CONTROL ROOM OPERATOR - 08/10/2024 7:14 AM EDT NEUROVASCULAR STROKE SERVICE Daily Progress Note IDENTIFYING INFORMATION Lindsay Acuna MR# [id number] 08/10/2024 HISTORY OF PRESENT ILLNESS Lindsay Acuna is a 78 y.o. female with PMH significant for CAD, HTN, HLD, T2DM, Afib (on Eliquis, although patient reports she has not been taking it) who presents with L hemiplegia, slurred speech. LKW 0915 on 08/02, later found down with slurred speech and L hemiplegia. She presented to [facility] and was seen on Telestroke, NIHSS 12. [...] 2b revascularization. INTERVAL HISTORY 08/05: Transfer to [facility] tomorrow 08/06: Failed MBS. Increased lopressor. Spouse [...] as above -Rate controlled on metoprolol Dysphagia: -TROMBONE SLIDE ASSEMBLER following -NPO, DHT + TF -Failed MBS [...] Lindsay Acuna will likely be discharged to [facility] when medically ready Radha Gr, JASIEL-PLANT TECHNICIAN/CONTROL ROOM OPERATOR 08/10/2024 7:14 AM VITAL SIGNS Temp: [97.4 [...] for specific therapeutic recommendations, please see the dyeing machine feeder report of the speech pathologist. Examination performed [...] skin and external bumper. - If used intermission coordinator, PEG should be changed every 3-6 months [...] Hepatology, and Nutrition Clinical Fellow PGY-4 Pager: [phone] For follow up questions regarding this patient 7am to 5pm, contact the IBD consults fellow or DAHLIA on [employer]. [facility]--> Internal Medicine--> Gastroenterology, Hepatology, & Nutrition--> IBD Consult Service Fel Day OR IBD Consult Service DAHLIA Day For urgent/stat calls or new consults 5pm to 7am or all day on the weekend, please page the on-callGI fellow on [employer]. [facility]--> Internal Medicine--> Gastroenterology, Hepatology, & Nutrition--> [...] CM for assistance as needed (8:00am-4:30pm) BASH: [phone] Maria: [phone] Johan: [phone] Ross: [phone] For Social Work assistance for the weekend, please contact SW for assistance as needed (8:00am - 4:30pm): BASH: [phone] Maria: [phone] Johan: [phone] Ross: [phone] * Radha Gr APRN-GARRETT - 08/09/2024 8:07 AM EDT NEUROVASCULAR STROKE SERVICE Daily Progress Note IDENTIFYING INFORMATION Lindsay Acuna MR# [id number] 08/09/2024 HISTORY OF PRESENT ILLNESS Lindsay Acuna is a 78 y.o. female with PMH significant for CAD, HTN, HLD, T2DM, Afib (on Eliquis, although patient reports she has not been taking it) who presents with L hemiplegia, slurred speech. LKW 0915 on 08/02, later found down with slurred speech and L hemiplegia. She presented to [facility] and was seen on Telestroke, NIHSS 12. [...] 2b revascularization. INTERVAL HISTORY 08/05: Transfer to [facility]. MBS tomorrow 08/06: Failed MBS. Increased lopressor. [...] as above -Rate controlled on metoprolol Dysphagia: -TROMBONE SLIDE ASSEMBLER following -NPO, DHT + TF -Failed MBS [...] Lindsay Acuna will likely be discharged to [facility] when medically ready Radha Gr, JASIEL-PLANT TECHNICIAN/CONTROL ROOM OPERATOR 08/09/2024 8:07 AM VITAL SIGNS Temp: [97.3 [...] for specific therapeutic recommendations, please see the dyeing machine feeder report of the speech pathologist. Examination performed [...] 08/12/2024 10:46 AM EDT * Shelton Steel, TROMBONE SLIDE ASSEMBLER - 08/08/2024 1:10 PM EDT Acute Care [...] on the below outcome measures/assessment score(s) and TROMBONE SLIDE ASSEMBLER clinicaljudgment, discharge destination recommendation is: Inpatient Rehab Facility Acute TROMBONE SLIDE ASSEMBLER Outcomes Tracking Communicate basic wants and needs?: [...] pressions and introduction to effortful swallow exercise. TROMBONE SLIDE ASSEMBLER provided education regarding recommendation of NPO given [...] constraints (transport arrived for pt's CT scan). TROMBONE SLIDE ASSEMBLER will follow as able. Subjective information: Patient upright in chair, at bedside. Agreeable to TROMBONE SLIDE ASSEMBLER session. Pain: General Pain Documentation (Adult, OB, [...] room air Flow (L/min): [3] 3 Acute TROMBONE SLIDE ASSEMBLER Goals Plan of Care by RIKI Penaloza [...] phsyiology, risks of aspiration pneumonia). Educated regarding TROMBONE SLIDE ASSEMBLER role in swallow rehab and future POC Plan for next session: 08/06: cog tx and dysphagia exercises TROMBONE SLIDE ASSEMBLER Outcomes: FOIS: 1 Speech Language Pathologist: RIKI Penaloza Time In: 1310 Time Out: 1330 Total Visit Time: 20 minutes Total Treatment Time (skilled, billable minutes): 20 minutes Non-billable assistance during session: NA Assisted by during session: NA PPE used during patient interaction: gloves Patient location/status at end of session: chair Patient alarms at end of session: none altered Needs in reach. TROMBONE SLIDE ASSEMBLER Evaluation and Treatment Time Swallowing Dysfunction Treatment 18012: 20 Upon discontinuation of Acute Care Speech [...] feedback Mobility Assessment/Intervention: Supine to Sit Mobility [place] Level: Supine->Sit: moderate assist (50% patient effort) Physical Assist: Supine->Sit: 2 person assist Bed Features/Set-up: Supine->Sit: Use of bed rail, Head of bed elevated Skilled Rationale: Sequencing, Verbal cues, Hand placement, Positioning Skilled Intervention/Details: Supine->Sit: increased time/cues Transfer Assessment/Intervention: Sit to Stand Transfer [place] Level: Sit->Stand: moderate assist (50% patient effort) Physical Assist: Sit->Stand: 2 person assist Assistive Device: Sit->Stand: gait belt, hand held assist Skilled Rationale: Positioning, Sequencing, Hand placement, Verbal cues Skilled Intervention/Details: Sit->Stand: Pt educated in sit to stand transfers x 2 attempts, one from EOB and one from chair Bed-Chair Transfer [place] Level: Bed<->Chair: maximum assist (25% patient effort) [...] Mobility Assessment/Intervention: Stairs Assessment/Intervention: Outcome Score(s): CURRENT [facility] Basic Mobility Inpatient Short Form Turning over in bed: 2 - A Lot of Assistance Moving from lying on back to sittin - A Lot of Assistance Moving to and from bed to chair: 1 - Total Assistance Sitting/standing from chair: 1 - Total Assistance Walk in hospital room: 1 - Total Assistance Climbing 3-5 steps with a railin - Total Assistance CURRENT [facility] Mobility Raw Score: 8 CURRENT [facility] Mobility Functional Limitation: 86.62% Impaired in Basic [...] PT Goals Plan of Care by Florinda Vealsquez PT at 08/08/2024 12:54 PM Version 1 [...] current Physical Therapy Discharge Summary. * Jazzy Talamantesluis - 08/08/2024 10:07 AM EDT Acute [...] positioning Mobility Assessment/Intervention: Supine to Sit Mobility [place] Level: Supine->Sit: moderate assist (50% patient effort) [...] positioning Transfer Assessment/Intervention: Sit to Stand Transfer [place] Level: Sit->Stand: moderate assist (50% patient effort) Physical Assist: Sit->Stand: 2 person assist Assistive Device: Sit->Stand: gait belt, hand held assist Skilled Rationale: Verbal cues, Tactile cues, Hand placement, Positioning, Technique of activity Skilled Intervention/Details: Sit->Stand: x1 from EOB, x1 from recliner. Cues for technique and assuming an upright posture once standing Stand to Sit Transfer [place] Level: Stand->Sit: moderate assist (50% patient effort) Physical Assist: Stand->Sit: 2 person assist Assistive Device: Stand->Sit: gait belt, hand held assist Skilled Rationale: Verbal cues, Tactile cues, Hand placement, Positioning, Controlled descent for sitting Skilled Intervention/Details: Stand->Sit: Cues for positioning with recliner and using arms to help with controlled descent into chair Bed-Chair Transfer [place] Level: Bed<->Chair: maximum assist (25% patient effort) [...] appropriately position with chair. Outcome Score(s): CURRENT [facility] Daily Activity Inpatient Short Form Putting on/Taking Off Lower Body Clothin - Total Assistance Bathin - A Lot of Assistance Toiletin - Total Assistance Putting on/Taking Off Upper Body Clothin - A Lot of Assistance Groomin - A Lot of Assistance Eatin - Total Assistance CURRENT [facility] Activity Raw Score: 9 CURRENT [facility] Activity Functional Limitation/Modifier: 79.59% Currently Impaired in [...] Progress Note IDENTIFYING INFORMATION Lindsay Acuna MR# [id number] 08/08/2024 HISTORY OF PRESENT ILLNESS Lindsay Acuna is a 78 y.o. female with PMH significant for CAD, HTN, HLD, T2DM, Afib (on Eliquis, although patient reports she has not been taking it) who presents with L hemiplegia, slurred speech. LKW 0915 on 08/02, later found down with slurred speech and L hemiplegia. She presented to [facility] and was seen on Telestroke, NIHSS 12. [...] 2b revascularization. INTERVAL HISTORY 08/05: Transfer to [facility]. MBS tomorrow 08/06: Failed MBS. Increased lopressor. [...] as above -Rate controlled on metoprolol Dysphagia: -TROMBONE SLIDE ASSEMBLER following -NPO, DHT + TF -Failed MBS [...] Lindsay Acuna will likely be discharged to [facility] when medically ready Bella Cardenas, SPUN PASTE MACHINE OPERATOR-PLANT TECHNICIAN/CONTROL ROOM OPERATOR 08/08/2024 2:53 PM VITAL SIGNS Temp: [97.4 [...] for specific therapeutic recommendations, please see the dyeing machine feeder report of the speech pathologist. Examination performed [...] bed availability Current Referrals and Status 1. [facility]- [facility] notified student confirming after call with Patient's daughter that [facility] is facility of choice. Facility [...] and patient's spouse are agreeable to [facility] as facility of choice, and Gisela is agreeable to [facility] as well. Updated SW student. Simin Resendez, RN, BSN Clinical Roving Changer [facility] * Chela Hannon - 08/07/2024 2:08 PM EDT Placement Plan COMMUNITY LIAISON met with Patient and spouse at bedside to discuss facility choice. Spouse mentioned that [facility] was first choice, though COMMUNITY LIAISON provided update that [facility] could not accept after reviewing. COMMUNITY LIAISON reviewed other IPR options with Spouse, who reports that [facility] would be facility of choice. Spouse discussed with daughter Gisela via phone, who is in agreement but requestsa return call. COMMUNITY LIAISON notified CCM. Chela Snyder, Social Work Student Available by Secure Chat Cosigned by OWEN Keller at 08/07/2024 2:11 PM EDT * Bella Cardenas APRN-GARRETT - 08/07/2024 6:54 AM EDT NEUROVASCULAR STROKE SERVICE Daily Progress Note IDENTIFYING INFORMATION Lindsay Acuna MR# [id number] 08/07/2024 HISTORY OF PRESENT ILLNESS Lindsay Acuna is a 78 y.o. female with PMH significant for CAD, HTN, HLD, T2DM, Afib (on Eliquis, although patient reports she has not been taking it) who presents with L hemiplegia, slurred speech. LKW 0915 on 08/02, later found down with slurred speech and L hemiplegia. She presented to [facility] and was seen on Telestroke, NIHSS 12. [...] 2b revascularization. INTERVAL HISTORY 08/05: Transfer to [facility]. MBS tomorrow 08/06: Failed MBS. Increased lopressor. [...] as above -Rate controlled on metoprolol Dysphagia: -TROMBONE SLIDE ASSEMBLER following -NPO, DHT + TF -Failed MBS [...] Lindsay Acuna will likely be discharged to [facility] when medically ready Bella Cardenas, SPUN PASTE MACHINE OPERATOR-PLANT TECHNICIAN/CONTROL ROOM OPERATOR 08/07/2024 3:06 PM VITAL SIGNS Temp: [97.5 [...] for specific therapeutic recommendations, please see the dyeing machine feeder report of the speech pathologist. Examination performed [...] authorization, transportation Current Referrals and Status 1. [facility]: Available 2. [facility]: Available 3. [facility]: Available (pending PEG or diet and their MD requested aspirin started before discharge) 4. [facility]: Available 5. [facility]: Unavailable, out of network 6. [facility] Inpatient Rehab: Unavailable, Incorrect Level of Care 7. [facility] IPR: sent Met with patient and patient's spouse, Ike, at bedside to provide choice list. Ike called patient's daughter, Gisela Acuna, to discuss as well. Gisela requested information on private pay at [facility], messaged [facility] liaison and then provided information to Gisela. Gisela requested CM sendreferral to [facility] I[facility]. Plan for family to review choice list FREDRICK camargo/SW team will update patient and family regarding [facility] I[facility] response tomorrow morning. This CM's contact information provided to Ike Acuna and Gisela Acuna for any further questions. Simin Resendez RN, BSN Clinical Roving Changer [facility] * Florinda Velasquez, PT - [...] minutes Mobility Assessment/Intervention: Supine to Sit Mobility [place] Level: Supine->Sit: moderate assist (50% patient effort) Bed Features/Set-up: Supine->Sit: Head of bed elevated, Use of bed rail Skilled Rationale: Positioning, Sequencing Skilled Intervention/Details: Supine->Sit: step by step cues for sequencingg Transfer Assessment/Intervention: Sit to Stand Transfer [place] Level: Sit->Stand: moderate assist (50% patient effort) [...] left UE during transitional movements Bed-Chair Transfer [place] Level: Bed<->Chair: moderate assist (50% patient effort) Physical Assist: Bed<->Chair: 2 person assist Assistive Device: Bed<->Chair: gait belt, hand held assist Skilled Rationale: Positioning, Hand placement, Verbal cues, Sequencing Skilled Intervention/Details: Bed<->Chair: Pt educated in bed to BSC commode transfer x 2-3 steps with cues for LE sequencing, left LE weakness requiring intermittent blocking Gait/Functional Mobility Assessment/Intervention: Gait Assessment [place] Level: Gait: (mod/max) Physical Assist: Gait: 2 [...] with a railin - Total Assistance CURRENT [facility] Mobility Raw Score: 9 CURRENT [facility] Mobility Functional Limitation: 81.38% Impaired in Basic [...] Physical Therapy Discharge Summary. * Nimesh Balderrama [facility] - 08/06/2024 1:42 PM EDT Department of Pharmacy Admission Medication Reconciliation Note Patient: Lindsay Acuna Room/Bed: 1043/A I have reviewed the patient's home medication list with the following sources Dispense Report. The home medication list status is: complete. All changes to the home medication list have been updated in [facility]. Updated DIRECTOR SOCIAL SERVICE Med List: Prior to Admission Medications Prescriptions [...] questions. Name: Nimesh Balderrama RPH Phone #: [phone] Date/Time: 08/06/2024 1:42 PM Time Spent: 10 [...] noted Mobility Assessment/Intervention: Supine to Sit Mobility [place] Level: Supine->Sit: moderate assist (50% patient effort) [...] completion. Transfer Assessment/Intervention: Sit to Stand Transfer [place] Level: Sit->Stand: (x 1 trial from EOB [...] and kyphotic posture. Stand to Sit Transfer [place] Level: Stand->Sit: moderate assist (50% patient effort) Assistive Device: Stand->Sit: gait belt (Arm and arm assist.) Skilled Rationale: Cues for increased safety, Initiation and execution of task, Technique of activity, Controlled descent for sitting, Ischial assist, Arm in arm, Tactile cues, Verbal cues, Hand placement, Sequencing, Positioning Bed-Chair Transfer [place] Level: Bed<->Chair: moderate assist (50% patient effort) [...] with left LE). Functional Mobility: Functional Mobility [place] Level: Functional Mobility/Gait: (Moderate-max assistance) Physical Assist: [...] overall decreased insight/awareness intodeficits. Outcome Score(s): CURRENT [facility] Daily Activity Inpatient Short Form Putting on/Taking Off Lower Body Clothin - Total Assistance Bathin - A Lot of Assistance Toiletin - Total Assistance Putting on/Taking Off Upper Body Clothin - A Lot of Assistance Groomin - A Lot of Assistance Eatin - Total Assistance ([place].) CURRENT [facility] Activity Raw Score: 9 CURRENT [facility] Activity Functional Limitation/Modifier: 79.59% Currently Impaired in [...] Occupational Therapy Discharge Summary. * Taran Traore, SPUN PASTE MACHINE OPERATOR-PLANT TECHNICIAN/CONTROL ROOM OPERATOR - 08/06/2024 7:49 AM EDT NEUROVASCULAR STROKE SERVICE Daily Progress Note IDENTIFYING INFORMATION Lindsay Acuna MR# [id number] 08/06/2024 HISTORY OF PRESENT ILLNESS Lindsay Acuna is a 78 y.o. female with PMH significant for CAD, HTN, HLD, T2DM, Afib (on Eliquis, although patient reports she has not been taking it) who presents with L hemiplegia, slurred speech. LKW 0915 on 08/02, later found down with slurred speech and L hemiplegia. She presented to [facility] and was seen on Telestroke, NIHSS 12. [...] 2b revascularization. INTERVAL HISTORY 08/05: Transfer to [facility]. MBS tomorrow 08/06: Failed MBS. Increased lopressor. [...] as above -Rate controlled on metoprolol Dysphagia: -TROMBONE SLIDE ASSEMBLER following -NPO, DHT + TF -Failed MBS [...] Lindsay Acuna will likely be discharged to [facility] when medically ready Taran Traore APRN-PLANT TECHNICIAN/CONTROL ROOM OPERATOR 08/06/2024 1:43 PM VITAL SIGNS Temp: [96.5 [...] for specific therapeutic recommendations, please see the dyeing machine feeder report of the speech pathologist. Examination performed [...] Progress Note IDENTIFYING INFORMATION Lindsay Acuna MR# [id number] 08/05/2024 HISTORY OF PRESENT ILLNESS Lindsay Acuna is a 78 y.o. female with PMH significant for CAD, HTN, HLD, T2DM, Afib (on Eliquis, although patient reports she has not been taking it) who presents with L hemiplegia, slurred speech. LKW 0915 on 08/02, later found down with slurred speech and L hemiplegia. She presented to [facility] and was seen on Telestroke, NIHSS 12. [...] as above -Rate controlled on metoprolol Dysphagia: -TROMBONE SLIDE ASSEMBLER following -NPO, DHT + TF -MBS tomorrow HLD, POA: -Atorvastatin 40 mg daily CAD, POA: -Hold ASA for 7 days due to ICH T2DM, POA: -SSI regular + accuchecks CKD Stage 3A, POA: Baseline Cr 1.3 -Avoid nephrotoxins, monitor Hypothyroidism, POA: -Continue home levothyroxine 75 mcg daily Disposition: Lindsay Acuna will likely be discharged to [facility] when medically ready Taran Traore APRN-PLANT TECHNICIAN/CONTROL ROOM OPERATOR 08/05/2024 2:19 PM VITAL SIGNS Temp: [97.8 [...] on the below outcome measures/assessment score(s), and TROMBONE SLIDE ASSEMBLER clinical judgment, discharge destination recommendation is: Pending [...] Impaired cognitive skills limiting saf ety/insight Acute TROMBONE SLIDE ASSEMBLER Outcomes Tracking Communicate basic wants and needs?: [...] oropharyngeal swallow function to most appropriately guide TROMBONE SLIDE ASSEMBLER plan of care. Of note, patient is [...] Currentdeficits impact her safety and independence. Ongoing TROMBONE SLIDE ASSEMBLER services are warranted. Subjective information: Awake, alert, [...] O2 Device: room air (08/05 0830) Acute TROMBONE SLIDE ASSEMBLER Goals Plan of Care by Queta Gardner TROMBONE SLIDE ASSEMBLER at 08/05/2024 11:49 AM Version 1 of [...] oropharyngeal swallow function to most appropriately guide TROMBONE SLIDE ASSEMBLER plan of care Outcome: Ongoing Problem: TROMBONE SLIDE ASSEMBLER - Cognition Goal: Orientation Log - Patient [...] better assess deficits and most appropriately guide TROMBONE SLIDE ASSEMBLER plan of care Outcome: Met Tx: Noted [...] for next session: 08/05: Good candidate; FERNANDO TROMBONE SLIDE ASSEMBLER Outcomes: TROMBONE SLIDE ASSEMBLER Outcomes / Standardized Measures Score The Orientation [...] wrist restraints, RN aware Needs in reach. TROMBONE SLIDE ASSEMBLER Evaluation and Treatment Time Speech Therapy - Individual 21513: 8 Swallowing Dysfunction Treatment 63621: 9 Upon discontinuation of Acute Care Speech Therapy Services or patient discharge from the hospital this note represents the current Speech Therapy Discharge Summary * Chela Hannon - 08/05/2024 10:37 AM EDT Placement Plan Expected Discharge Date: TBD Referred Level of Care: IPR Barriers: medical stability, bed availability Current Referrals and Status 1. [facility]- sent; denied (Patient is OON) 2. [facility]- sent 3. [facility]- sent 4. [facility]- sent 5. [facility]- sent 6. [facility] COMMUNITY LIAISON met with Patient and Spouse at bedside to discuss discharge planning. Patient and spouse were agreeable to SW visit. COMMUNITY LIAISON discussed therapy recommendations with Spouse for Patient to go to [facility] at discharge. Spouse is agreeable to a referral being sent to [facility]. Referral sent. Spouse requested to speak to SW about assessing Patient for dementia. COMMUNITY LIAISON and bedside RN encouragedSpouse to discuss with Patient's outpatient provider. Chela Snyder, Social Work Student Available by Secure Chat Cosigned by OWEN Keller at 08/05/2024 11:22 AM EDT * Savana Leung, RD - 08/05/2024 10:10 AM EDT NUTRITION ASSESSMENT Nutrition Recommendations and Plan of Care: 1. Diet: NPO. Advancement per team/TROMBONE SLIDE ASSEMBLER recommendation 2. Ordered TF: Glucerna 1.5 @ [...] time. Per team, pt failed bedside swallow. TROMBONE SLIDE ASSEMBLER consulted for swallow eval. Past History No [...] kg (172 lb) 06/26/24 78.9 kg (174 lb)-[facility] 05/31/24 79 kg (174 lb 2.6 oz)-[facility] 11/28/23 80.6 kg (177 lb 9.6 oz)-[facility] 09/29/23 84 kg (185 lb)-[facility] Pt without significant weight change DIRECTOR SOCIAL SERVICE. Tmax: 97.8*F BP: (!) 173/94 Pulse (Heart [...] proximal second portion of the duodenum. 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 * Shanna Russ, SPUN PASTE MACHINE OPERATOR-PLANT TECHNICIAN/CONTROL ROOM OPERATOR - 08/05/2024 7:20 AM EDT NEUROCRITICAL CARE [...] Visual richards intact to confrontation. PERRL. 3mm hand scudder III, IV and : EOMI. No nystagmus. [...] aggressive pulm edema, OOB as toleratd - [id number], encourage pulmonary toileting Cards: Essential HTN HLD [...] TUBE FEEDING with meds (per DHT) - [place] Swallow Screening Result: failed=NPO Bowel regimen: - Last Bowel Movement: (prior to admission) - Senna 17.2 mg Q12H, miralax BID, suppository PRN Stress ulcer prophylaxis: - none Dysphagia - DHT placed - TROMBONE SLIDE ASSEMBLER following; NPO continue following, on TF - [...] not indicated DVT: subcutaneous heparin [x] Lines Whiteside: n/a Gallegos: remove Rectal tube: n/a Enteral [...] the assigned neurocritical care provider (resident, fellow, APARTMENT MAINTENANCE TECHNICIAN, orPA) or page/call the corresponding number below NCC1 (Beds 5615-1491): [place] # [phone], pager #[phone] NCC2 (Beds 5929-0185, [address], and overflow): [place] #: [phone], pager #[phone] * Florinda Velasquez, PT - 08/04/2024 1:36 [...] noted Mobility Assessment: Supine to Sit Mobility [place] Level: Supine->Sit: moderate assist (50% patient effort) [...] EOB Transfer Assessment: Sit to Stand Transfer [place] Level: Sit->Stand: moderate assist (50% patient effort) Physical Assist: Sit->Stand: 2 person assist Assistive Device: Sit->Stand: gait belt, hand held assist Skilled Rationale: Positioning, Sequencing, Hand placement, Verbal cues Skilled Intervention/Details: Sit->Stand: x 1 from EOB Bed-Chair Transfer [place] Level: Bed<->Chair: moderate assist (50% patient effort) Physical Assist: Bed<->Chair: 2 person assist Assistive Device: Bed<->Chair: gait belt, hand held assist Skilled Rationale: Positioning, Sequencing, Hand placement, Verbal cues Skilled Intervention/Details: Bed<->Chair: x 2-3 steps from bed to chair Gait/Functional Mobility: Stairs: Outcome Score(s): CURRENT [facility] Basic Mobility Inpatient Short Form Turning over [...] with a railin - Total Assistance CURRENT [facility] Mobility Raw Score: 10 CURRENT [facility] Mobility Functional Limitation: 76.75% Impaired in Basic [...] Edema: Mobility Assessment: Supine to Sit Mobility [place] Level: Supine->Sit: moderate assist (50% patient effort) Physical Assist: Supine->Sit: 2 person assist Bed Features/Set-up: Supine->Sit: Head of bed elevated Skilled Rationale: Positioning, Hand placement, Verbal cues, Technique of activity Transfer Assessment: Sit to Stand Transfer [place] Level: Sit->Stand: moderate assist (50% patient effort) Physical Assist: Sit->Stand: 2 person assist Assistive Device: Sit->Stand: gait belt, hand held assist Skilled Rationale: Positioning, Hand placement, Verbal cues, Technique of activity Stand to Sit Transfer [place] Level: Stand->Sit: moderate assist (50% patient effort) Physical Assist: Stand->Sit: 2 person assist Assistive Device: Stand->Sit: hand held assist Skilled Rationale: Positioning, Hand placement, Verbal cues, Arm in arm, Controlled descent for sitting Bed-Chair Transfer [place] Level: Bed<->Chair: moderate assist (50% patient effort) Physical Assist: Bed<->Chair: 2 person assist Assistive Device: Bed<->Chair: gait belt, hand held assist Skilled Rationale: Arm in arm, Patellar block, Technique of activity Skilled Intervention/Details: Bed<->Chair: LLE weakness/blocking of patella with transfer, pivot to right Functional Mobility: Outcome Score(s): CURRENT -[facility] Daily Activity Inpatient Short Form Putting on/Taking Off Lower Body Clothin - A Lot of Assistance Bathin - A Lot of Assistance Toiletin - Total Assistance Putting on/Taking Off Upper Body Clothin - A Lot of Assistance Groomin - A Little Assistance Eatin - Total Assistance CURRENT -[facility] Activity Raw Score: 11 CURRENT -[facility] Activity Functional Limitation/Modifier: 70.42% Currently Impaired in [...] treatment options) Time In: 917 Time Out: 09 Total Visit Time: 18 minutes Total Treatment [...] assessment and plan as documented by the APARTMENT MAINTENANCE TECHNICIAN with my changes/additions added. Patient is a [...] ICH x 7 days - Statin - PT/OT/TROMBONE SLIDE ASSEMBLER evaluation Pulmonary: No acute issues, appears to [...] and other supportive care as per the APARTMENT MAINTENANCE TECHNICIAN note from the same day This patient [...] care services to the patient today [facility], [facility] and other care providers. Management of the above was performed. My time managing this critically ill patient included review of interval history, laboratories, radiology and cons ultation reports; performing a physical examination; discussing the patient with the multi-disciplinary team and managing life sustaining therapies to prevent imminent clinical deterioration. Richard Mejia MD Neurocritical Care Attending * Balbir Mccoy, SPUN PASTE MACHINE OPERATOR-PLANT TECHNICIAN/CONTROL ROOM OPERATOR - 08/04/2024 7:44 AM EDT NEUROCRITICAL CARE [...] Visual richards intact to confrontation. PERRL. 3mm hand scudder III, IV and : EOMI. No nystagmus. [...] SpO2 >92%; wean FiO2 as tolerated - [id number], encourage pulmonary toileting Cards: Essential HTN HLD [...] TUBE FEEDING with meds (per DHT) - [place] Swallow Screening Result: failed=NPO Bowel regimen: - Last Bowel Movement: (prior to admission) - Senna 17.2 mg Q12H, miralax at bedtime Stress ulcer prophylaxis: - none Dysphagia - DHT placed - TROMBONE SLIDE ASSEMBLER following - Tube feed: Vital AF with [...] not indicated DVT: subcutaneous heparin [x] Lines Whiteside: n/a Gallegos: inserted 08/02, (indication: strict I&O with concern for KELI) Rectal tube: n/a Enteral access: inserted 08/03, [ ] gastric; [x ] post-pyloric CENTRAL LINES: Central Line Indications: No line currently in place Can line/s be removed today? No line in place at this time Dressing/s Clean/Dry/Intact?: No line currently in place Discussed with NCCU Attending, Dr. Jackie Mccoy, SPUN PASTE MACHINE OPERATOR-PLANT TECHNICIAN/CONTROL ROOM OPERATOR 08/04/24 7:44 AM Check the treatment team to find the assigned neurocritical care provider (resident, fellow, APARTMENT MAINTENANCE TECHNICIAN, orPA) or page/call the corresponding number below NCC1 (Beds 5858-1573): [place] # [phone], pager #[phone] NCC2 (Beds 1336-1840, [address], and overflow): [place] #: [phone], pager #[phone] * Rafael Garcia MD - 08/03/2024 2:16 PM EDT NEUROVASCULAR Consult Daily Progress Note IDENTIFYING INFORMATION Lindsay Acuna MR# [id number] 08/03/2024 HISTORY OF PRESENT ILLNESS Lindsay Acuna is a 78 y.o. female with PMH significant for CAD, HTN, HLD, T2DM, Afib (on Eliquis, although patient reports she has not been taking it) who presents with L hemiplegia, slurred speech. She was last seen normal by her at 0915, later found down with slurred speech and L hemiplegia. She presented to [facility] and was seen on Telestroke, NIHSS 12. [...] speech and L hemiplegia. She presented to [facility] and was seen on Telestroke, NIHSS 12. [...] workup. Delbert Kasper MD * Nohelia Oconnell, TROMBONE SLIDE ASSEMBLER - 08/03/2024 12:09 PM EDT Acute Care TROMBONE SLIDE ASSEMBLER Speech/Language/Cognitive Evaluation Best mode of Communication: spoken language (regular speech) Discharge Recommendations: Based on the below outcome measures/assessment score(s) and TROMBONE SLIDE ASSEMBLER clinicaljudgment, discharge destination recommendation is: (Skilled speech therapy services at next level of care) Barriers to discharge home: Cognitive impairments that impact safety and independence Supporting factors for discharge setting: Impaired swallow function limiting nutritional status andsafety with oral intake Acute TROMBONE SLIDE ASSEMBLER Outcomes Tracking Communicate basic wants and needs?: [...] speech and L hemiplegia. She presented to [facility] and was seen on Telestroke,NIHSS 12. CTH [...] 0 Asthenia (A): 0 Strain (S): 0 TROMBONE SLIDE ASSEMBLER Outcomes / Standardized Measures Score The Orientation [...] unable to respond. Total Score: 12 Acute TROMBONE SLIDE ASSEMBLER Goals Plan of Care by RIKI Hayes at 08/03/2024 11:25 AM Version 1 of 1 Problem: Dysphagia Goal: Ongoing Assessment - Patient will participate in ongoing assessment by accepting various PO consistency trials with appropriate participation/oral acceptance and no significant respiratory complications to determine readiness for diet advancement Outcome: Ongoing Problem: TROMBONE SLIDE ASSEMBLER - Cognition Goal: Orientation Log - Patient [...] better assess deficits and most appropriately guide TROMBONE SLIDE ASSEMBLER plan of care Outcome: Ongoing Speech Language [...] of session: bed alarm Needs in reach. TROMBONE SLIDE ASSEMBLER Evaluation and Treatment Time Speech Eval - Sound Production W/Lang Comp and Exp 40607: 11 Swallowing Eval 07778: 10 Upon discontinuation of Acute Care Speech [...] on the below outcome measures/assessment score(s) and TROMBONE SLIDE ASSEMBLER clinicaljudgment, discharge destination recommendation is: Deferred to PT/OT recomendations related to mobility Current therapy frequency recommendation in acute care: Swallow Therapy Frequency: 5 times a week Acute TROMBONE SLIDE ASSEMBLER Outcomes Tracking Communicate basic wants and needs?: [...] speech and L hemiplegia. She presented to [facility] and was seen on Telestroke,NIHSS 12. 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 Prior TROMBONE SLIDE ASSEMBLER history: No prior speech history per chart [...] and Liquids Trialed Modality Amount Ice Teaspoon, TROMBONE SLIDE ASSEMBLER-fed 3x Thin Teaspoon 3x Oral Phase Function [...] Patient presents with presumed pharyngeal phase impairments. [place] Swallow Screen: (administered by: RN) [place] Swallow Screening Screening Exclusion Criteria: none, continue with [place] Swallow Screening Cognitive Screen: Orientation: able to [...] Water Swallow Challenge : coughing/throat clearing-overt signs/symptoms [place] Swallow Screening Result: failed=NPO Voice and Swallow [...] Ok for ice chips with RN supervision. TROMBONE SLIDE ASSEMBLER will continue to follow for ongoing dysphagia management. Patient Education/Instruction Learners: Patient Education provided: Dysphagia recommendation risk: benefit analysis, Role of this discipline Teaching method: Verbal Education/Instruction Learner response: Needs review Learning preferences: Auditory Learning considerations: Cognition Plan for next session: 08/03: Good Prognosis, ongoing dysphagia management to determine readiness for diet advancement vs instrumental. Acute TROMBONE SLIDE ASSEMBLER Goals Plan of Care by RIKI Hayes at 08/03/2024 11:25 AM Version 1 of 1 Problem: Dysphagia Goal: Ongoing Assessment - Patient will participate in ongoing assessment by accepting various PO consistency trials with appropriate participation/oral acceptance and no significant respiratory complications to determine readiness for diet advancement Outcome: Ongoing Problem: TROMBONE SLIDE ASSEMBLER - Cognition Goal: Orientation Log - Patient [...] better assess deficits and most appropriately guide TROMBONE SLIDE ASSEMBLER plan of care Outcome: Ongoing Speech Language Pathologist: Nohelia Oconnell, RIKI, BCS-S Board Certified Specialist in Swallowing and Swallowing Disorders Available via [employer]SO Interactive Chat Time In: 1130 Time Out: 1151 Total Visit Time: 21 minutes Total Treatment Time (skilled, billable minutes): 21 minutes Non-billable assistance during session: none Assisted by during session: Patient's PPE used during patient interaction: gloves Patient location/status at end of session: bed with head of bed elevated Patient alarms at end of session: bed alarm Needs in reach. TROMBONE SLIDE ASSEMBLER Evaluation and Treatment Time Speech Eval - Sound Production W/Lang Comp and Exp 29065: 11 Swallowing Eval 34109: 10 Upon discontinuation of Acute Care Speech Therapy Services or patient discharge from the hospital this note represents the current Speech Therapy Discharge Summary * Richard Mejia MD - 08/03/2024 10:30 AM EDT I have independently seen and examined the patient on 08/03/24. I agree with the history, examination, assessment and plan as documented by the APARTMENT MAINTENANCE TECHNICIAN with my changes/additions added. Patient is a [...] the setting of ICH - Statin - PT/OT/TROMBONE SLIDE ASSEMBLER evaluation Pulmonary: No acute issues, appears to [...] and other supportive care as per the APARTMENT MAINTENANCE TECHNICIAN note from the same day This patient [...] care services to the patient today [facility], [facility] and other care providers. Management [...] with assistance from spouse Care Management Plan COMMUNITY LIAISON met with Patient and Spouse at bedside to complete Initial Assessment. They were agreeable to SW visit. Patient was lethargic though able to answer some short questions. Patient consented to Spouse assisting with assessment. Spouse/Patient report that Patient has never completed a HCPOA. They expressed interest, and COMMUNITY LIAISON will follow to complete document when Patient is more alert and oriented. Spouse reports himself and Patient live in a ranch-style home with strong supports from their community, including 2 neighbors that have assisted at this time. He noted that himself and Patient recently returned from a visit to [facility] for their 50 anniversary. Spouse reports that their 2 children will be visiting soon. COMMUNITY LIAISON explained SW role and offered resources. Spouse [...] Name and Contact information: Ike Acuna P: [phone] Adult Child(jj), List All Adult Children: Yes Name and Contact information: Donnell Acuna P: [phone]; Nathen Acuna P: [phone] Would you like to add additional adult [...] for Advance Care Planning? : Patient Agreeable (COMMUNITY LIAISON to follow for HCPOA completion when Patient is more alert and oriented) Medication Management Does the patient have prescription insurance coverage? : Yes Is the patient on Anticoagulation? : Yes (Per chart review, Patient is on anticoagulation but has not been taking it (does not recall the last time she took a dose)) Provider or Clinic that manages Anticoagulation?: (unspecified at this time) [facility] [address] [place] [id number] [facility] [address] [facility] [address] Living Environment and Support System Is the patient from a facility or shelter?: No Living Environment: House ("1 bedroom ranch") Patient Caregiving Responsibilities: Self Patient-identified caregiver/support network: Family, Friends, Neighbors, Pentec[employer]alism Who does the patient identify as a [...] themselves at home? : Unable to assess Bladder Tier Does the patient or life assurance representative express financial concerns? : No Chela Snyder, Social Work Student Available by Secure Chat Cosigned by OWEN Keller at 08/03/2024 11:20 AM EDT * Balbir Mccoy, SPUN PASTE MACHINE OPERATOR-PLANT TECHNICIAN/CONTROL ROOM OPERATOR - 08/03/2024 7:40 AM EDT NEUROCRITICAL CARE [...] Visual richards intact to confrontation. PERRL. 3mm hand scudder III, IV and : EOMI. No nystagmus. [...] SpO2 >92%; wean FiO2 as tolerated - [id number], encourage pulmonary toileting Cards: Essential HTN HLD [...] - Bowel regimen: - Last Bowel Movement: (DIRECTOR SOCIAL SERVICE) - Senna, miralax Stress ulcer prophylaxis: - none Dysphagia - DHT placed - TROMBONE SLIDE ASSEMBLER following - Tube feed: Vital AF with [...] the assigned neurocritical care provider (resident, fellow, APARTMENT MAINTENANCE TECHNICIAN, orPA) or page/call the corresponding number below NCC1 (Beds 0558-2059): [place] # [phone], pager #[phone] NCC2 (Beds 2075-4553, 12 Nando, and overflow): [place] #: [phone], pager #[phone] * Nando Caceres MD - 08/03/2024 6:00 [...] nccu Neurosurgery signing off Please page NS2 ([phone]) with questions Complexity. Hypocalcemia - Continue to monitor and replete. Any conditions listed below are present on admission unless otherwise specified. . Cosigned by Prema Ramos MD at 08/03/2024 6:37 PM EDT * Andreas Ga, [facility] - 08/02/2024 10:57 PM EDT [...] any questions, Name: Andreas Ga RPH Phone: [phone] Date/Time: 08/02/2024 10:57 PM * Richard Mejia MD - 08/02/2024 6:01 PM EDT I have independently seen and examined the patient on 08/02/24. I agree with the history, examination, assessment and plan as documented by the APARTMENT MAINTENANCE TECHNICIAN with my changes/additions added. Patient is a [...] to determine stroke burden - Statin - PT/OT/TROMBONE SLIDE ASSEMBLER evaluation Pulmonary: No acute issues, appears to [...] stage 3a - Maintain euvolemia GI/Nutrition: - TROMBONE SLIDE ASSEMBLER evaluation - Bowel regimen to prevent constipation [...] and other supportive care as per the APARTMENT MAINTENANCE TECHNICIAN note from the same day This patient [...] MD Neurocritical Care Attending documented in this [facility]03-29-2025 Consult note* Niru Koch MD - [...] today. Consent obtained by at bedside. - TROMBONE SLIDE ASSEMBLER eval: none - RD eval: none PAST [...] dependence ASSESSMENT/RECOMMENDATIONS: - primary team feels that custodial enteric nutrition is warranted in s/o CVA. Patient is appropriate for endoscopic PEG placement. Consent obtained from at bedside. - we will tentatively plan for EGD for PEG placement 08/09 as add on case. See pre procedure recommendations below. For PEG: - Ancef ordered (1 gm if patient is <80 kg; 2 gm if patient is >80 kg) as "consumer affairs director to the procedure"). - Please make [...] Hepatology, and Nutrition Clinical Fellow PGY-4 Pager: [phone] For urgent/stat calls 5pm to 7am or all day on the weekend, please page the on- call GI fellow on WebExFeeligo. IM Consult Serv GH[facility] --> [facility] [...] and medical decisions as outlined. Need for custodial non-oral enteric nutrition per primary team. We will facilitate this with planned PEG tube placement. Before placement, non-GI management of TF should be established to avoid delays. David Woods M.D. 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 female w/ [...] team with any questions/concerns. Prema Ramos M.D. Eyelet Machine Operator Department of Neurosurgery [facility] * Taran Traore, SPUN PASTE MACHINE OPERATOR-PLANT TECHNICIAN/CONTROL ROOM OPERATOR - 08/02/2024 2:44 PM EDT Neurovascular Evaluation [...] speech and L hemiplegia. She presented to [facility] and was seen on Telestroke, NIHSS 12. [...] protrudes midline Motor: L hemiplegia Reflexes: Coordination: Ccxyab-yw-gsyp intact on the R, unable to test [...] Continuous telemetry -PT, OT, Speech and social service director consults Other problems: Complexity. Any conditions listed [...] speech and L hemiplegia. She presented to [facility] and was seen on Telestroke, NIHSS 12. [...] Delbert Kasper MD documented [facility]OS[facility] Procedure note* Tanja Hunter, RIKI [...] the below outcome measures/assessment score(s), MBS, and TROMBONE SLIDE ASSEMBLER clinical judgment, discharge destination recommendation is: IP Rehab Facility. Patient demonstrates good candidacy for discharge to: IRF. Additional supporting factors include: Impaired swallow functionlimiting nutritional status and safety with oral intake. Acute TROMBONE SLIDE ASSEMBLER Outcomes Tracking Communicate basic wants and needs?: [...] speech and L hemiplegia. She presented to [facility] and was seen on Telestroke, NIHSS 12. [...] Thin Barium: teaspoon x2, straw x2 Varibar [place] Barium: straw x1 Varibar Thin Honey Barium: [...] recommend NPO and nonoral meds. Ongoing skilled TROMBONE SLIDE ASSEMBLER services indicated to address deficits and maximize [...] Therapeutic Interventions Met: yes, treatment indicated Acute TROMBONE SLIDE ASSEMBLER Goals Plan of Care by Tanja Hunter, TROMBONE SLIDE ASSEMBLER at 08/06/2024 9:33 AM Version 1 of 1 Problem: Dysphagia Goal: MBS - Patient will participate in Modified Barium Swallow (MBS) Study to objectively assess oropharyngeal swallow function to most appropriately guide TROMBONE SLIDE ASSEMBLER plan of care Outcome: Met Goal: Bolus [...] Treatment Time (skilled, billable minutes): 20 minutes TROMBONE SLIDE ASSEMBLER Evaluation and Treatment Time MBS/Motion Fluoroscopic Swallowing Eval 57594: 20 Speech Language Pathologist: RIKI Gonzales Time [...] end of session: none altered (RN present) TROMBONE SLIDE ASSEMBLER Evaluation and Treatment Time MBS/Motion Fluoroscopic Swallowing Eval 31877: 20 Upon discontinuation of Acute Care Speech Therapy Services or patient discharge from the hospital this note represents the current Speech Therapy Discharge Summary documented in this [facility]03-25-2025 Hospital Discharge instructions* Discharge Instructions* Jhoana Casarez APRN-PLANT TECHNICIAN/CONTROL ROOM OPERATOR - 08/06/2024 8:38 AM EDT Please take [...] you at all times. Stroke Education: visit go.[facility].edu/doqs4387 What are the most common symptoms of [...] all ordered medications [x] Avoid non-prescription or qhtv-ugt-hbaxacb medication not cleared by your physician [x] [...] may call the neurovascular doctors office at [phone], if you have questions Mon-Fri between 8:30 am and 4:30 pm. - For off hours or the weekend you may call the office or the hospital lunch wagon operator at and ask for the stroke resident consumer affairs director to be paged. - If you have any other questions or needs, please call Aniyah DOSS, RN, Stroke Nurse Navigator at [phone] Mon-Mon between 7:00am and 3:00pm. - Additional assistance may be found by reaching out to our Case Management Office at [phone]. *In the event of an Emergency: If you have a physical or psychiatric emergency call 911 or go to your local emergency department. You should also call your outpatient provider's emergency number. Other reference numbers: [facility] Intake Office at [phone]; [facility] at 440-898-9321; or Suicide Prevention Hotline at 183-303-0703. *Helpful phone numbers: Free Crisis Hotline: 5-488-719-TALK ( ) Suicide Hotline: 609.584.5925 Seniors Suicide Hotline: 765.770.4299 [facility] Youth: 828.396.8070 Mental Health of [place]: 101.619.4959 (free counseling) [facility] Access Hotline: 865-035-BAZE (443-037-0923) 24-hour crisis text hotline: Text the word "4hope" to 277-233 for crisis support. Texting this number is [...] you may qualify for Medicaid/public assistance: The [facility] Department of Job and Family Services can now process zayas (TANF), food (SNAP) and Medicaid Applications over the phone. Please call 5-011-001The Industry's AlternativeTEXAS (7909) and apply over the phone or apply online at www.benefits.[place].gov. Monday-Monday 8am-12pm noon. Medication Assistance Programs [employer] members can buy 100+ common prescriptions for FREE, $3 or $6. Annual membership is $36 for individuals and $72 for families (up to 6 people, including pets). Sign up online or enroll at your nearest pharmacy! -[employer], web site can provide a significant number of coupons for medications at a much lower raymundo. [place] Department of Aging The Department of Aging administers programs and services to meet the needs of older [place]. Services and resources offered per county may include transportation, housekeeping, meals and nutrition, personal care, case management, safety monitoring, home medical equipment, legal services, financial services representative, health and wellness, education, caregiver support, respite care, etc. Call to be connected to the [facility] agency on aging serving your community or visit aging.[place].gov/find-services. Request a consultation with a community resource expert at ltssi.age.[place].gov/ [facility] Stroke Support [facility] Stroke Support Group is for stroke survivors, friends, and family members. Meets on the Monday of each month from 6:30pm-7:30pm at [facility] ([address]; [place] [address]). Contact Chela Nolan, at [phone] or [email or web address]. If you are outside of the [facility], contact The [place] Stroke Association at www.stroke.org or 4-486-6-STROKE or for support groups in your area. You may also refer to the Your Care after a Stroke education booklet at go.[facility].edu/iurj0040 for additional resources. * Medications* PATRIZIA Miner - 08/06/2024 8:38 AM EDT Know your medicines Make sure you know why you are taking each medicine. Make a master list of all your medicines. Write down the medicine names and doctors' names. Includedoses and side effects too. And write down why you take each medicine. Include all prescription mklpaoj-cme-xtrgmpx medicines, vitamins, and supplements. Keep this list [...] plan your refills so that you can pickling machine operator all your medicines at the same time. [...] every 6 months. [facility] History and physical note* PATRIZIA [...] Visual richards intact to confrontation. PERRL. 3mm hand scudder III, IV and : EOMI. No nystagmus. [...] SpO2 >92%; wean FiO2 as tolerated - [id number], encourage pulmonary toileting Cards: Essential HTN HLD [...] prophylaxis - rationale: post thrombectomy [x] Lines Whiteside: n/a Gallegos: n/a Rectal tube: n/a Enteral [...] the assigned neurocritical care provider (resident, fellow, APARTMENT MAINTENANCE TECHNICIAN, orPA) or page/call the corresponding number below NCC1 (Beds 6751-1406): [place] # [phone], pager #[phone] NCC2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 Narrative* Problem Noted Date Resolved Date Hypertensive kidney disease with stage 3 chronic kidney disease 11/03/2020 11/05/2020 Diabetes mellitus with renal complications 05/0111/03/2020 PURE HYPERCHOLESTEROLEM 11/27/19 14 DIABETES MELLITUS TYPE II-UNCOMPL 11/26/2013 documented as of this encounter (statuses as of 01/11/2022) [facility] of Past illness Narrative* Problem Noted Date Resolved Date Hypertensive kidney disease with stage 3 chronic kidney disease 11/03/2020 11/05/2020 Diabetes mellitus with renal complications 05/0111/03/2020 PURE HYPERCHOLESTEROLEM 11/27/19 14 DIABETES MELLITUS TYPE II-UNCOMPL 11/26/2013 documented as of this encounter (statuses as of 03/02/2022) [facility] of Past illness Narrative* Problem Noted Date Resolved Date Hypertensive kidney disease with stage 3 chronic kidney disease 11/03/2020 11/05/2020 Diabetes mellitus with renal complications 05/0111/03/2020 PURE HYPERCHOLESTEROLEM 11/27/19 14 DIABETES MELLITUS TYPE II-UNCOMPL 11/26/2013 documented as of this encounter (statuses as of 03/02/2022) [facility] of Past illness Narrative* Problem Noted Date Resolved Date Hypertensive kidney disease with stage 3 chronic kidney disease 11/03/2020 11/05/2020 Diabetes mellitus with renal complications 05/0111/03/2020 PURE HYPERCHOLESTEROLEM 11/27/19 14 DIABETES MELLITUS TYPE II-UNCOMPL 11/26/2013 documented as of this encounter (statuses as of 04/11/2022) [facility] of Past illness Narrative* Problem Noted Date Resolved Date Hypertensive kidney disease with stage 3 chronic kidney disease 11/03/2020 11/05/2020 Diabetes mellitus with renal complications 05/0111/03/2020 PURE HYPERCHOLESTEROLEM 11/27/19 14 DIABETES MELLITUS TYPE II-UNCOMPL 11/26/2013 documented as of this encounter (statuses as of 05/27/2022) [facility] History of Past illness Narrative* Problem Noted Date Diagnosed Date Resolved Date Hypertensive kidney disease with stage 3 chronic kidney disease 11/03/2020 11/05/2020 Diabetes mellitus with renal complications 05/01/2014 11/03/2020 PURE HYPERCHOLESTEROLEM 07/1 09/2013 DIABETES MELLITUS TYPE II-UNCOMPL 11/26/2013 documented as of this encounter (statuses as of 11/25/2022) [facility] of Past illness Narrative* Problem Noted Date Diagnosed Date Resolved Date Hypertensive kidney disease with stage 3 chronic kidney disease 11/03/2020 11/05/2020 Diabetes mellitus with renal complications 05/01/2014 11/03/2020 PURE HYPERCHOLESTEROLEM 07/1 09/2013 DIABETES MELLITUS TYPE II-UNCOMPL 11/26/2013 documented as of this encounter (statuses as of 04/08/2023) [facility] of Past illness Narrative* Problem Noted Date Diagnosed Date Resolved Date Hypertensive kidney disease with stage 3 chronic kidney disease 11/03/2020 11/05/2020 Diabetes mellitus with renal complications 05/01/2014 11/03/2020 PURE HYPERCHOLESTEROLEM 11/12 DIABETES MELLITUS TYPE II-UNCOMPL 11/26/2013 documented as of this encounter (statuses as of 04/08/2023) [facility] CenterDis[facility] Author Pieter Morgan [facility] Note Date/Time August 02, 2024 1:[address] [facility] Medical Records Department [address] [place] [address] Emergency Department Summary 08/02/24 MR#: [id number] Acct: [id number] Name: LINDSAY ACUNA Rep #:[id number] : [...] the EMR. states they returned home from [facility] about 1.5-2 weeks ago, and they both had colds. He is better, but she is "on round 2." [facility] Medical History Paroxysmal atrial [...] H Lymph % (Auto) 17.9 L [place] % (Auto) 8.9 Eos % (Auto) 1.0 [...] at 1250 hours. Reading Location: [facility] Head/Neck CTA 08/02/24 12:24 IMPRESSION: RIGHT CAROTID: Mild degree of calcific plaque at the origin of the right internal carotid artery. LEFT CAROTID: Mild degree of calcific plaque at the origin of the left internal carotid artery. VERTEBRALS: Dominant left vertebral artery INTRACRANIAL: Unremarkable Other impression: No significant stenosis seen. Reading Location: [place] [address] Rhythm Strip Rhythm Strip: A-fib Rate: 90 Ectopy: None EKG Initial EKG: Attestation: I personally reviewed and interpreted this EKG as follows: Interpretation: No Acute Injury Pattern, Atrial Fibrillation and Non-Specific ST Changes Management Discussion w/another healthcare provider: Resource Room Special Education Teacher ([facility] stroke neurology) and Radiologist Stroke Documentation [...] min), Including time spent:, Discussing w/Patient &/or Family/Thread Tool Grinder Set Up Operator, Discussing w/Consultants, Arranging Admission or Transfer [...] MD [Primary Care Provider] - Print Language: Russian Disposition Disposition: Acute Care Hospital Discharge Location: [facility] What to do if you have Problems For any increased pain, shortness of breath, bleeding, nausea or vomiting, chestpain, or any unexpected problems, contact your Primary Care Provider. Call [facility] ([phone]) or report to the closest Emergency Room. Call 911 if necessary. 08/02/24 1316 <Electronically signed by Pieter Morgan MD> Cosigner Signature (if applicable): CC: Dr. Kameron Caruso MD ~ Signed [facility] Work Phone: Evaluation note* Diagnosis Need for vaccination- Primary Need for prophylactic vaccination and inoculation against unspecified single disease documented [facility] this encounter [facility]* Diagnosis Type 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, unspecified CKD stage, unspecified whether intermission coordinator insulin use (HCC)- Primary Essential hypertension, benign Hyperlipidemia, unspecified hyperlipidemia type Stage 3b chronic kidney disease (HCC) Hypothyroidism, unspecified type Memory loss documented in this encounter [facility]* Diagnosis Type 2 diabetes mellitus with diabetic chronic kidney disease, unspecified CKD stage, unspecified whether custodial insulin use (HCC)- Primary [facility]* Diagnosis Hyperlipidemia, unspecified hyperlipidemia type Essential hypertension, benign Type 2 diabetes mellitus with diabetic chronic kidney disease, unspecified CKD stage, unspecified whether custodial insulin use (HCC) [facility] Type 2 diabetes mellitus with diabetic chronic kidney disease, unspecified CKD stage, unspecified whether custodial insulin use (HCC) Essential hypertension, benign Hyperlipidemia, unspecified hyperlipidemia type documented [facility] Diagnosis Acute midline low back pain without sciatica- Primary [facility]* Diagnosis Type 2 diabetes mellitus with diabetic chronic kidney disease, unspecified CKD stage, unspecified whether intermission coordinator insulin use (HCC)- Primary documented in this encounter [facility] note* Diagnosis Essential hypertension, benign- Primary Hypothyroidism, unspecified type Type 2 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, without long-term current use of insulin (HCC) Hyperlipidemia, unspecified hyperlipidemia type Chronic kidney disease, stage 3a (HCC) Edema of left lower leg Wellness examination documented in this encounter [facility] note* Diagnosis Type 2 diabetes mellitus with diabetic chronic kidney disease, unspecified CKD stage, unspecified whether intermission coordinator insulin use (HCC) documented in this encounter [facility] note* Diagnosis Allergic contact dermatitis due to plant- Primary Contact dermatitis and other eczema due to plants (except food) documented in this encounter [facility] note* Diagnosis Rash- Primary Rash and other nonspecific skin eruption documented in this encounter [facility] note* Diagnosis Type 2 diabetes mellitus with diabetic chronic kidney disease, unspecified CKD stage, unspecified whether custodial insulin use (HCC)- Primary Essential hypertension, benign Chronic kidney disease, stage 3a (HCC) Hyperlipidemia, unspecified hyperlipidemia type Hypothyroidism, unspecified type Edema of left lower leg Memory loss documented in this encounter [facility] note* Diagnosis Essential hypertension, benign- Primary Type [...] (HCC) documented in this encounter [facility] note* Diagnosis Atrial fibrillation, unspecified type (HCC)- Primary Hypothyroidism, unspecified type Need for malaria prophylaxis documented in this encounter [facility] note* Diagnosis History of traveler's diarrhea- Primary Personal history of other diseases of digestive system documented in this encounter [facility] note* Diagnosis History of traveler's diarrhea Personal history of other diseases of digestive system documented in this encounter [facility] noteNo assessment information availableWBethesda [facility] Work Phone: Evaluation note* Diagnosis Acute ischemic right MCA stroke- Primary Unspecified cerebral artery occlusion with cerebral infarction Cerebrovascular accident (CVA), unspecified mechanism Renal disease (High Serum Creatinine) Unspecified disorder of kidney and ureter Type 2 diabetes mellitus with hyperglycemia Type II or unspecified type diabetes mellitus without mention of complication, not stated as uncontrolled [facility] N[facility] No data available for this section Tyler Garcia Reason for referral (narrative)* Outpatient Procedure (Routine) - Pending Review Specialty Diagnoses / Procedures Referred By Contac t Referred To Contact [facility] Diagnoses Atrial fibrillation, unspecified type (HCC) Procedures ECHO ECHO TTHRC R-T 2D W/WOM-MODE COMPL SPEC&COLR D Kameron Caruso MD [address] [place] [address] [facility] [address] [place] [address] Referral ID Status Reason Start Date Expiration Date Visits Requested Visits Authorized [id number] Pending Review Auto-Generat ed Referral 05/31/2024 05/31/2025 1 1 * Outpatient Procedure (Routine) - New Request Specialty Diagnoses / Procedures Referred By Qiana almodovar Referred To Contact [facility] Diagnoses Irregular heart beat Procedures ECG COMPLETE ECG ROUTINE ECG W/LEAST 12 LDS W/I&R Kameron Caruso MD [address] [place] [address] [id number] [place] [address] Referral ID Status Reason Start Date Expiration Date Visits Requested Visits Authorized [id number] New Request Auto-Generat ed Referral 05/31/2024 05/31/2025 1 1 [facility]No reason for referral information availableWBethesda North Hospital Work Phone: Reason for visit Narrative* Auth/Cert Specialty Diagnoses / Procedures Referred By Contac t Referred To Contact Diagnoses Acute ischemic right MCA stroke Cerebrovascular Accident (Level A Ishemic Stroke) Prema Rodgers MD [address] [place] [phone] Phone: tel: fax: [facility] [address] [place] [address] Referral ID Status Reason Start Date Expiration Date Visits Re quested Visits Authorized [id number] 1 1 [facility] Summary Purpose Family History No Family History Records Found Relationship Condition Age at Onset Recorded Date/T monse mother Diabetes mellitus Unknown Hypertension Unknown Psychiatric disorder Unknown grandmother Malignant neoplasm Unknown sister Disorder of thyroid Unknown Advance Directives No Advanced Directives Records FoundDocuments on File Type Date Recorded Patient Road Crew Member 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 Advance Directives and Living Will Power of Cosmetics Demonstrator Latest Code Status on File Code Status Date Activated Date Inactivated Comments Full Code 01/09/2019 10:16 AM Latest Code Status on File Code Status Date Activated Date Inactivated Comments Full Code 10/16/2019 9:16 AM Full Code 01/09/2019 10:16 AM 01/09/2019 2:23 PM Documents on File Type Date Recorded Patient Road Crew Member 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 Advance Directive(s) 11/07/2018 6:45 AM Advance Directive(s) 09/29/2015 10:09 PM Advance Directive Response Recorded Date/ Time Living Will No August 02, 2024 12:46pm Do you have a Healthcare Power of Cosmetics Demonstrator? No August 02, 2024 12:46pm Date Activated [...] patient had a polyp identified by on {time:32307}. Biopsies {are/were w not:9034} taken. The patient's usual bowel pattern is {bowel pattern:98832}. Bowel movements {bowel changes:85166} . {abd pain:03953}. The patient has noted{bleeding with BM:14458}. The patient {does/do/not:90782} have a family history of colon polyps. The patient {does/do/not:04570} have a family history of colon cancer. [...] MONTHLY EXAM October 09, 2024 5:45p m ASSISTED LAB WORK October 15, 2024 5:0 0am ASSISTED LAB WORK October 22, 2024 5: 00am ASSISTED LAB WORK October 23, 2024 5: 00am ASSISTED LAB WORK October 29, 2024 5: 00am [...] WORK October 01, 2024 5:00a m AFIB ([facility]) October 02, 2024 9:29a m LAB WORK October 08, 2024 5:00a m MONTHLY EXAM October 09, 2024 5:45p m ASSISTED LAB WORK October 15, 2024 5:0 0am ASSISTED LAB WORK October 22, 2024 5: 00am ASSISTED LAB WORK October 23, 2024 5: 00am ASSISTED LAB WORK October 29, 2024 5: 00am NEW CONCERN October 30, 2024 6:00 pm ASSISTED LAB WORK November 12, 2024 5:0 0am [...] WORK October 01, 2024 5:00a m AFIB ([facility]) October 02, 2024 9:29a m LAB WORK October 08, 2024 5:00a m MONTHLY EXAM October 09, 2024 5:45p m ASSISTED LAB WORK October 15, 2024 5:0 0am ASSISTED LAB WORK October 22, 2024 5: 00am NEW CONCERN October 22, 2024 12:4 5pm ASSISTED LAB WORK October 23, 2024 5: 00am ASSISTED LAB WORK October 29, 2024 5: 00am NEW CONCERN October 30, 2024 6:00 pm ASSISTED LAB WORK November 12, 2024 5:0 0am [...] WORK October 01, 2024 5:00a m AFIB ([facility]) October 02, 2024 9:29a m LAB WORK October 08, 2024 5:00a m MONTHLY EXAM October 09, 2024 5:45p m ASSISTED LAB WORK October 15, 2024 5:0 0am ASSISTED LAB WORK October 22, 2024 5: 00am NEW CONCERN October 22, 2024 12:4 5pm ASSISTED LAB WORK October 23, 2024 5: 00am ASSISTED LAB WORK October 29, 2024 5: 00am FU VISIT October 29, 2024 7:15 pm NEW CONCERN October 30, 2024 6:00 pm ASSISTED LAB WORK November 12, 2024 5:0 0am Chief Complaint Admit Date LAB WORK September 10, 2024 5:0 0am ADMISSION EXAM September 10, 2024 12: 49pm ADMISSION EXAM September 11, 2024 3:0 8pm LAB WORK September 17, 2024 5:00am LABWORK September 24, 2024 5:00a m LAB WORK September 29, 2024 5:44p m LAB WORK October 01, 2024 5:00a m AFIB ([facility]) October 02, 2024 9:29a m LAB WORK October 08, 2024 5:00a m MONTHLY EXAM October 09, 2024 5:45p m ASSISTED LAB WORK October 15, 2024 5:0 0am ASSISTED LAB WORK October 22, 2024 5: 00am NEW CONCERN October 22, 2024 12:4 5pm ASSISTED LAB WORK October 23, 2024 5: 00am ASSISTED LAB WORK October 29, 2024 5: 00am FU VISIT October 29, 2024 7:15 pm NEW CONCERN October 30, 2024 6:00 pm ASSISTED LAB WORK November 05, 2024 5: 00am ASSISTED LAB WORK November 12, 2024 5:0 0am ASSISTED LAB WORK November 19, 2024 4:0 0am New Concern November 20, 2024 10:49 am LABWORK November 25, 2024 2:00 am ASSISTED LAB WORK November 26, 2024 5: 20am New Concern November 28, 2024 4:43 pm ASSISTED LAB WORK December 03, 2024 5: 00am Chief Complaint Admit Date LAB WORK September 10, 2024 5:0 0am ADMISSION EXAM September 10, 2024 12: 49pm ADMISSION EXAM September 11, 2024 3:0 8pm LAB WORK September 17, 2024 5:00am LABWORK September 24, 2024 5:00a m LAB WORK September 29, 2024 5:44p m LAB WORK October 01, 2024 5:00a m AFIB ([facility]) October 02, 2024 9:29a m LAB WORK October 08, 2024 5:00a m MONTHLY EXAM October 09, 2024 5:45p m ASSISTED LAB WORK October 15, 2024 5:0 0am ASSISTED LAB WORK October 22, 2024 5: 00am NEW CONCERN October 22, 2024 12:4 5pm ASSISTED LAB WORK October 23, 2024 5: 00am ASSISTED LAB WORK October 29, 2024 5: 00am FU VISIT October 29, 2024 7:15 pm NEW CONCERN October 30, 2024 6:00 pm ASSISTED LAB WORK November 05, 2024 5: 00am ASSISTED LAB WORK November 12, 2024 5:0 0am ASSISTED LAB WORK November 19, 2024 4:0 0am New Concern November 20, 2024 10:49 am LABWORK November 25, 2024 2:00 am ASSISTED LAB WORK November 26, 2024 5: 20am ASSISTED LAB WORK December 03, 2024 5: 00am Chief Complaint Admit Date LAB WORK September 10, 2024 5:0 0am ADMISSION EXAM September 10, 2024 12: 49pm ADMISSION EXAM September 11, 2024 3:0 8pm LAB WORK September 17, 2024 5:00am LABWORK September 24, 2024 5:00a m LAB WORK September 29, 2024 5:44p m LAB WORK October 01, 2024 5:00a m [facility] October 02, 2024 9:29a m LAB WORK October 08, 2024 5:00a m MONTHLY EXAM October 09, 2024 5:45p m ASSISTED LAB WORK October 15, 2024 5:0 0am ASSISTED LAB WORK October 22, 2024 5: 00am NEW CONCERN October 22, 2024 12:4 5pm ASSISTED LAB WORK October 23, 2024 5: 00am ASSISTED LAB WORK October 29, 2024 5: 00am FU VISIT October 29, 2024 7:15 pm NEW CONCERN October 30, 2024 6:00 pm ASSISTED LAB WORK November 05, 2024 5: 00am ASSISTED LAB WORK November 12, 2024 5:0 0am ASSISTED LAB WORK November 19, 2024 4:0 0am New Concern November 20, 2024 10:49 am LABWORK November 25, 2024 2:00 am ASSISTED LAB WORK November 26, 2024 5: 20am New Concern November 28, 2024 4:43 pm ASSISTED LAB WORK December 03, 2024 5: 00am ASSISTED LAB WORK December 10, 2024 6: 20am ASSISTED LAB WORK December 17, 2024 5 :00am ASSISTED LAB WORK December 24, 2024 5:00am ASSISTED LAB WORK December 31, 2024 4:00am MONTHLY EXAM December 31, 2024 12 :07pm Chief Complaint Admit Date ASSISTED LAB WORK October 22, 2024 5: 00am NEW CONCERN October 22, 2024 12:4 5pm ASSISTED LAB WORK October 23, 2024 5: 00am ASSISTED LAB WORK October 29, 2024 5: 00am FU VISIT October 29, 2024 7:15 pm NEW CONCERN October 30, 2024 6:00 pm ASSISTED LAB WORK November 05, 2024 5: 00am ASSISTED LAB WORK November 12, 2024 5:0 0am ASSISTED LAB WORK November 19, 2024 4:0 0am New Concern November 20, 2024 10:49 am LABWORK November 25, 2024 2:00 am ASSISTED LAB WORK November 26, 2024 5: 20am New Concern November 28, 2024 4:43 pm ASSISTED LAB WORK December 03, 2024 5: 00am ASSISTED LAB WORK December 10, 2024 6: 20am ASSISTED LAB WORK December 17, 2024 5 :00am ASSISTED LAB WORK December 24, 2024 5:00am ASSISTED LAB WORK December 31, 2024 4:00am MONTHLY EXAM December 31, 2024 12 :07pm ASSISTED LAB WORK January 07, 2025 4:00am ASSISTED LAB WORK January 14 4:00am LABWORK January 21, 2025 5:00am ASSISTED LAB WORK January 28 5:00am ASSISTED LAB WORK February 04 5:07am Chief Complaint Admit Date ASSISTED LAB WORK November 12, 2024 5:0 0am ASSISTED LAB WORK November 19, 2024 4:0 0am New Concern November 20, 2024 10:49 am LABWORK November 25, 2024 2:00 am ASSISTED LAB WORK November 26, 2024 5: 20am New Concern November 28, 2024 4:43 pm ASSISTED LAB WORK December 03, 2024 5: 00am ASSISTED LAB WORK December 10, 2024 6: 20am ASSISTED LAB WORK December 17, 2024 5 :00am ASSISTED LAB WORK December 24, 2024 5:00am ASSISTED LAB WORK December 31, 2024 4:00am MONTHLY EXAM December 31, 2024 12 :07pm ASSISTED LAB WORK January 07, 2025 4:00am ASSISTED LAB WORK January 14 4:00am LABWORK January 21, 2025 5:00am ASSISTED LAB WORK January 28 5:00am ASSISTED LAB WORK February 04 5:07am ASSISTED LAB WORK February 11 6:03am ASSISTED LAB WORK February 25, 2025 4:07am Additional Source Comments INFORMATION SOURCE (unrecogn ized section and content) DATE CREATED AUTHOR 08/31/2018 [facility]) DATE CREATED AUTHOR AUTHOR'S ORGANIZ ATION 10/18/2019 [facility] DATE CREATED AUTHOR AUTHOR'S ORGANIZ ATION 08/04/2024 [facility] DATE CREATED AUTHOR AUTHOR[facility]S ORGANIZ ATION [facility] CREATED AUTHOR AUTHOR'S ORGANIZ ATION 09/01/[address] [facility] DATE CREATED AUTHOR AUTHOR'S ORGANIZ ATION 11/08/2024 [facility] DATE CREATED AUTHOR AUTHOR'S ORGANIZ ATION 02/17/2025 [facility] DATE CREATED AUTHOR AUTHOR'S ORGANIZ ATION 03/17/2025 [facility] Source Comments (unrecognize d section and content) In the event this informatio n is protected by the Federal Confidentiality of Alcohol and Drug Abuse Patient Records regulations: The Federal rules restrict any use of the information to criminally investigate or prosecute any alcohol or drug abuse patient.[facility] CenterIn the event this information is protected by the Federal Confidentiality of Alcohol and Drug Abuse Patient Records regulations: The Federal rules restrict any use of the information to criminally investigate or prosecute any alcohol or drug abuse patient.[facility] CenterIn the event this information is protected by the Federal Confidentiality of Alcohol and Drug Abuse Patient Records regulations: The Federal rules restrict any use of the information to criminally investigate or prosecute any alcohol or drug abuse patient.[facility] CenterIn the event this information is protected by the Federal Confidentiality of Alcohol and Drug Abuse Patient Records regulations: The Federal rules restrict any use of the information to criminally investigate or prosecute any alcohol or drug abuse patient.[facility] CenterIn the event this information is protected by the Federal Confidentiality of Alcohol and Drug Abuse Patient Records regulations: The Federal rules restrict any use of the information to criminally investigate or prosecute any alcohol or drug abuse patient.[facility] CenterIn the event this information is protected by the Federal Confidentiality of Alcohol and Drug Abuse Patient Records regulations: The Federal rules restrict any use of the information to criminally investigate or prosecute any alcohol or drug abuse patient.[facility] CenterIn the event this information is protected by the Federal Confidentiality of Alcohol and Drug Abuse Patient Records regulations: The Federal rules restrict any use of the information to criminally investigate or prosecute any alcohol or drug abuse patient.[facility] CenterIn the event this information is protected by the Federal Confidentiality of Alcohol and Drug Abuse Patient Records regulations: The Federal rules restrict any use of the information to criminally investigate or prosecute any alcohol or drug abuse patient.[facility] CenterIn the event this information is protected by the Federal Confidentiality of Alcohol and Drug Abuse Patient Records regulations: The Federal rules restrict any use of the information to criminally investigate or prosecute any alcohol or drug abuse patient.[facility] CenterIn the event this information is protected by the Federal Confidentiality of Alcohol and Drug Abuse Patient Records regulations: The Federal rules restrict any use of the information to criminally investigate or prosecute any alcohol or drug abuse patient.[facility] CenterIn the event this information is protected by the Federal Confidentiality of Alcohol and Drug Abuse Patient Records regulations: The Federal rules restrict any use of the information to criminally investigate or prosecute any alcohol or drug abuse patient.[facility] CenterIn the event this information is protected by the Federal Confidentiality of Alcohol and Drug Abuse Patient Records regulations: The Federal rules restrict any use of the information to criminally investigate or prosecute any alcohol or drug abuse patient.[facility] CenterIn the event this information is protected by the Federal Confidentiality of Alcohol and Drug Abuse Patient Records regulations: The Federal rules restrict any use of the information to criminally investigate or prosecute any alcohol or drug abuse patient.[facility] CenterIn the event this information is protected by the Federal Confidentiality of Alcohol and Drug Abuse Patient Records regulations: The Federal rules restrict any use of the information to criminally investigate or prosecute any alcohol or drug abuse patient.[facility] CenterIn the event this information is protected by the Federal Confidentiality of Alcohol and Drug Abuse Patient Records regulations: The Federal rules restrict any use of the information to criminally investigate or prosecute any alcohol or drug abuse patient.[facility] CenterIn the event this information is protected by the Federal Confidentiality of Alcohol and Drug Abuse Patient Records regulations: The Federal rules restrict any use of the information to criminally investigate or prosecute any alcohol or drug abuse patient.[facility] CenterIn the event this information is protected by the Federal Confidentiality of Alcohol and Drug Abuse Patient Records regulations: The Federal rules restrict any use of the information to criminally investigate or prosecute any alcohol or drug abuse patient.[facility] CenterIn the event this information is protected by the Federal Confidentiality of Alcohol and Drug Abuse Patient Records regulations: The Federal rules restrict any use of the information to criminally investigate or prosecute any alcohol or drug abuse patient.[facility] CenterIn the event this information is protected by the Federal Confidentiality of Alcohol and Drug Abuse Patient Records regulations: The Federal rules restrict any use of the information to criminally investigate or prosecute any alcohol or drug abuse patient.[facility] CenterIn the event this information is protected by the Federal Confidentiality of Alcohol and Drug Abuse Patient Records regulations: The Federal rules restrict any use of the information to criminally investigate or prosecute any alcohol or drug abuse patient.[facility] CenterIn the event this information is protected by the Federal Confidentiality of Alcohol and Drug Abuse Patient Records regulations: The Federal rules restrict any use of the information to criminally investigate or prosecute any alcohol or drug abuse patient.[facility] CenterIn the event this information is protected by the Federal Confidentiality of Alcohol and Drug Abuse Patient Records regulations: The Federal rules restrict any use of the information to criminally investigate or prosecute any alcohol or drug abuse patient.[facility] CenterIn the event this information is protected by the Federal Confidentiality of Alcohol and Drug Abuse Patient Records regulations: The Federal rules restrict any use of the information to criminally investigate or prosecute any alcohol or drug abuse patient.[facility] CenterIn the event this information is protected by the Federal Confidentiality of Alcohol and Drug Abuse Patient Records regulations: The Federal rules restrict any use of the information to criminally investigate or prosecute any alcohol or drug abuse patient.[facility] CenterIn the event this information is protected by the Federal Confidentiality of Alcohol and Drug Abuse Patient Records regulations: The Federal rules restrict any use of the information to criminally investigate or prosecute any alcohol or drug abuse patient.[facility] CenterIn the event this information is protected by the Federal Confidentiality of Alcohol and Drug Abuse Patient Records regulations: The Federal rules restrict any use of the information to criminally investigate or prosecute any alcohol or drug abuse patient.[facility] CenterIn the event this information is protected by the Federal Confidentiality of Alcohol and Drug Abuse Patient Records regulations: The Federal rules restrict any use of the information to criminally investigate or prosecute any alcohol or drug abuse patient.[facility] CenterIn the event this information is protected by the Federal Confidentiality of Alcohol and Drug Abuse Patient Records regulations: The Federal rules restrict any use of the information to criminally investigate or prosecute any alcohol or drug abuse patient.[facility] Reason for Visit (unrecogniz ed [...] Comments request for medication Reason Comments [facility] requesting verbal agree to f [facility] Care Teams (unrecognized sec tion and content) Substation Manager Relationship Specialty Start Date End Date Kameron Caruso MD [address] [place], [place] [id number] PCP - General Family Practice 09/21/15 Substation Manager Relationship Specialty Start Date End Date Kameron Caruso MD [address] [place], [place] [id number] PCP - General Family Practice 09/21/15 Substation Manager Relationship Specialty Start Date End Date Kameron Caruso MD [address] [place], [place] [id number] PCP - General Family Practice 09/21/15 Substation Manager Relationship Specialty Start Date End Date Kameron Caruso MD [address] [place] [address] PCP - General Family Practice 09/21/15 Substation Manager Relationship Specialty Start Date End Date Kameron Caruso MD [address] [place] [address] PCP - General Family Practice 09/21/15 Substation Manager Relationship Specialty Start Date End Date Kameron Caruso MD [address] [place] [address] PCP - General Family Practice 09/21/15 Substation Manager Relationship Specialty Start Date End Date Kameron Caruso MD [address] [place] [address] PCP - General Family Medicine 09/21/15 Substation Manager Relationship Specialty Start Date End Date Kameron Caruso MD [address] [place] [address] PCP - General Family Medicine 09/21/15 Substation Manager Relationship Specialty Start Date End Date Kameron Caruso MD [address] [place] [address] PCP - General Family Medicine 09/21/15 Substation Manager Relationship Specialty Start Date End Date Kameron Caruso MD [address] [place] [address] PCP - General Family Medicine 09/21/15 Substation Manager Relationship Specialty Start Date End Date Kameron Caruso MD [address] [place] [address] PCP - General Family Medicine 09/21/15 Substation Manager Relationship Specialty Start Date End Date Kameron Caruso MD [address] [place] [address] PCP - General Family Medicine 09/21/15 Substation Manager Relationship Specialty Start Date End Date Kmaeron Caruso MD [address] [place] [address] PCP - General Family Medicine 09/21/15 Substation Manager Relationship Specialty Start Date End Date Kameron Caruso MD [address] [place] [address] PCP - General Family Medicine 09/21/15 Substation Manager Relationship Specialty Start Date End Date Kameron aCruso MD [address] [place] [address] PCP - General Family Medicine 09/21/15 Substation Manager Relationship Specialty Start Date End Date Kameron Caruso MD [address] [place] [address] PCP - General Family Medicine 09/21/15 Emma Sotomayor, JASIEL.PLANT TECHNICIAN/CONTROL ROOM OPERATOR [address] [place] [address] [facility] 04/21/24 Mj Glover, SPUN PASTE MACHINE OPERATOR.PLANT TECHNICIAN/CONTROL ROOM OPERATOR [address] [place] [address] [facility] 04/30/24 Substation Manager Relationship Specialty Start Date End Date Kameron Caruso MD [address] [place] [address] PCP - General Family Medicine 09/21/15 Emma Sotomayor APRN.PLANT TECHNICIAN/CONTROL ROOM OPERATOR [address] [place] [address] [facility] 04/21/24 Mj Glover APRN.PLANT TECHNICIAN/CONTROL ROOM OPERATOR [address] [place] [address] [facility] 04/30/24 Substation Manager Relationship Specialty Start Date End Date Kameron Caruso MD [address] [place] [address] PCP - General Family Medicine 09/21/15 Emma Sotomayor APRN.PLANT TECHNICIAN/CONTROL ROOM OPERATOR [address] [place] [address] [facility] 04/21/24 Mj Glover APRN.PLANT TECHNICIAN/CONTROL ROOM OPERATOR [address] [place] [address] [facility] 04/30/24 Substation Manager Relationship Specialty Start Date End Date Kameron Caruso MD [address] [place] [address] PCP - General Family Medicine 09/21/15 Emma Sotomayor APRN.PLANT TECHNICIAN/CONTROL ROOM OPERATOR [address] [place] [address] [facility] 04/21/24 Mj Glover APRN.PLANT TECHNICIAN/CONTROL ROOM OPERATOR [address] [place] [address] [facility] 04/30/24 Substation Manager Relationship Specialty Start Date End Date Kameron Caruso MD [address] [place] [address] PCP - General Family Medicine 09/21/15 Emma Sotomayor APRN.PLANT TECHNICIAN/CONTROL ROOM OPERATOR [address] [place] [address] [facility] 04/21/24 Mj Glover APRN.PLANT TECHNICIAN/CONTROL ROOM OPERATOR [address] [place] [address] [facility] 04/30/24 Substation Manager Relationship Specialty Start Date End Date Kameron Caruso MD [address] [place] [address] PCP - General Family Medicine 09/21/15 Emma Sotomayor APRN.PLANT TECHNICIAN/CONTROL ROOM OPERATOR [address] [place] [address] [facility] 04/21/24 Mj Glover APRN.PLANT TECHNICIAN/CONTROL ROOM OPERATOR [address] [place] [address] [facility] 04/30/24 Substation Manager Relationship Specialty Start Date End Date Kameron Caruso MD [address] [place] [address] PCP - General Family Medicine 09/21/15 Emma Sotomayor APRN.PLANT TECHNICIAN/CONTROL ROOM OPERATOR [address] [place] [address] [facility] 04/21/24 Mj Glover APRN.PLANT TECHNICIAN/CONTROL ROOM OPERATOR [address] [place] [address] [facility] 04/30/24 Team Status: Active Member Role Status Dates Dr. Kameron Caruso MD Primary Care Provider Active Team Status: Inactive Member Role Status Dates Dr. Kameron Caruso MD Primary Care Provider Active Start: August 02, 2024 End: August 02, 2024 Dr. Pieter Morgan MD Emergency Provider Active Start: August 02, 2024 End: August 02, 2024 Substation Manager Relationship Specialty Start Date End Date Kameron Caruso MD [address] [place] [address] PCP - General Family Medicine 08/03/24 Substation Manager Relationship Specialty Start Date End Date Kameron Caruso MD [address] [place] [address] PCP - General Family Medicine 09/21/15 Emma Sotomayor, SPUN PASTE MACHINE OPERATOR.PLANT TECHNICIAN/CONTROL ROOM OPERATOR [address] [place] [address] [facility] 04/21/24 Mj Glover, SPUN PASTE MACHINE OPERATOR.PLANT TECHNICIAN/CONTROL ROOM OPERATOR [address] [place] [address] [facility] 04/30/24 Team Status: Inactive Member Role Status [...] End: September 11, 2024 Bret Snyder NP, APARTMENT MAINTENANCE TECHNICIAN-C Attending Provider Active Start: September 11, 2024 [...] End: October 09, 2024 Bret Snyder NP, APARTMENT MAINTENANCE TECHNICIAN-C Attending Provider Active Start: October 09, 2024 [...] End: October 30, 2024 Bret Snyder NP, APARTMENT MAINTENANCE TECHNICIAN-C Attending Provider Active Start: October 30, 2024 [...] End: October 22, 2024 Bret Snyder NP, APARTMENT MAINTENANCE TECHNICIAN-C Attending Provider Active Start: October 22, 2024 [...] 2024 End: October 30, 2024 Bret Snyder APARTMENT MAINTENANCE TECHNICIAN, APARTMENT MAINTENANCE TECHNICIAN-C Attending Provider Active Start: October 30, 2024 [...] End: October 30, 2024 Bret Snyder NP, APARTMENT MAINTENANCE TECHNICIAN-C Attending Provider Active Start: October 30, 2024 [...] 2024 End: September 11, 2024 Bret Snyder APARTMENT MAINTENANCE TECHNICIAN, APARTMENT MAINTENANCE TECHNICIAN-C Attending Provider Active Start: September 11, 2024 [...] End: October 09, 2024 Bret Snyder NP, APARTMENT MAINTENANCE TECHNICIAN-C Attending Provider Active Start: October 09, 2024 [...] End: October 22, 2024 Bret Snyder NP, APARTMENT MAINTENANCE TECHNICIAN-C Attending Provider Active Start: October 22, 2024 [...] 2024 End: November 20, 2024 Bret Snyder APARTMENT MAINTENANCE TECHNICIAN, APARTMENT MAINTENANCE TECHNICIAN-C Attending Provider Active Start: November 20, 2024 [...] 2024 End: November 28, 2024 Bret Snyder NP, APARTMENT MAINTENANCE TECHNICIAN-C Attending Provider Active Start: November 28, 2024 [...] 2024 End: October 22, 2024 Bret Snyder APARTMENT MAINTENANCE TECHNICIAN, APARTMENT MAINTENANCE TECHNICIAN-C Attending physician Active Start: October 22, 2024 [...] End: October 30, 2024 Bret Snyder NP APARTMENT MAINTENANCE TECHNICIAN-C Attending physician Active Start: October 30, 2024 [...] End: November 20, 2024 Bret Snyder NP APARTMENT MAINTENANCE TECHNICIAN-C Attending physician Active Start: November 20, 2024 [...] 2024 End: November 28, 2024 Bret Snyder APARTMENT MAINTENANCE TECHNICIAN, APARTMENT MAINTENANCE TECHNICIAN-C Attending physician Active Start: November 28, 2024 [...] November 25, 2024 End: November 25, 2024 Team Status: Inactive Member Role/Relationship Status Dates Dr. Kameron Caruso MD Primary care physician Active Start: November 12, 2024 End: November 12, 2024 Safia VARGAS MD Attending physician Active Start: November 12, 2024 End: November 12, 2024 Team Status: Active Member [...] End: November 20, 2024 Bret Snyder NP, APARTMENT MAINTENANCE TECHNICIAN-C Attending physician Active Start: November 20, 2024 End: November 20, 2024 Team Status: Inactive Member Role/Relationship Status Dates Dr. Kameron Caruso MD Primary care physician Active Start: November 25, 2024 End: November 25, 2024 Safia VARGAS MD Attending physician Active Start: November 25, 2024 End: November 25, 2024 Team Status: Active Member [...] End: November 28, 2024 Bret Snyder NP APARTMENT MAINTENANCE TECHNICIAN-C Attending physician Active Start: November 28, 2024 [...] Status: Active Member Role/Relationship Status Dates Dr. Kmaeron Caruso MD Primary care physician Active Start: [...] 2024 End: December 31, 2024 Team Status: Inactive Member Role/Relationship Status Dates Dr. Kameron Caruso MD Primary care physician Active Start: January 07, 2025 End: January 07, 2025 Safia VARGAS MD Attending physician Active Start: January 07, 2025 End: January 07, 2025 Safia VARGAS MD Referring Provider Active Start: January 07, 2025 End: January 07, 2025 Team Status: Active Member [...] Attending physician Active Start: February 11, 2025 Safia VARGAS MD Referring Provider Active Start: February 11, 2025 Team Status: Active Member Role/Relationship Status Dates Dr. Kameron Caruso MD Primary care physician Active Start: February 18, 2025 Safia VARGAS MD Attending physician Active Start: February 18, 2025 Team Status: Active Member Role/Relationship Status Dates Dr. Kameron Caruso MD Primary care physician Active Start: February 25, 2025 Safia VARGAS MD Attending physician Active Start: February 25, 2025 Safia VARGAS MD Referring Provider Active Start: February 25, 2025 Team Status: Active Member Role/Relationship Status Dates Dr. Kameron Caruso MD Primary care physician Active Start: March 04, 2025 Safia VARGAS MD Attending physician Active Start: March 04, 2025 (unrecognized sect ion and content) No [...] Discontinued 09 (Given - Provider: Shanna Palmer RN)1946 (Given [...] Parekh, ZOE)0507 (Given - Provider: Katia Parekh, RN)0906 (Given - Provider: Shanna Palmer RN)1351 (Given - Provider: Shanna Palmer RN)1758 (Given - Provider: Shanna Palmer RN)2129 (Given - Provider: Shaila Eng, RN) 0113 (Given - Provider: Shaila Eng RN)0533 (Given - Provider: Shaila Eng, RN) [...] glucose is greater than 200mg/dl, then notify boilerhouse mechanic. And BLOOD GLUCOSE (POC DEVICE) (CANCELED) [...] 50% needed, contact pharmacy or obtain from Inbox cart ++ And glucose (GLUTOSE) 40 % [...] at 1301, Until Specified, Who to Notify: Relief Map Modeler, For all Blood Glucose LESS THAN 80 mg/dl, notify Relief Map Modeler after treatment per Hypoglycemia in Non- Adults [...] BE BASED ON THE PRIMARY CLINICAL RECORDS. [facility]. provides no warranty or guarantee of the accuracy or completeness of information in this document.
[2025-03-18 08:30] LABS: Hematocrit 37.0 % (37-47); Hemoglobin 11.8 g/dL (12.0-15.0); Immature Granulocytes Count 0.020 X10^3/uL (0.0-0.0); Mean Corp Hgb Conc 31.9 g/dL (32-36); Mean Corpuscular Volume 93.4 fL (81-99); Mean Platelet Vol. 11.9 fl (6.2-12.0); NRBC Flagged by Analyzer 0 % (0-5); Platelet Count 265 K/mm3 (150-450); RBC Distribution Width CV 14.1 % (11.6-14.6); RBC Distribution Width SD 47.8 fl (35.1-43.9); Red Blood Count 3.96 M/mm3 (4.2-5.4); White Blood Count 8.4 K/mm3 (4.4-11.0)
[2025-03-18 08:55] LABS: Anion Gap 11 (5-15); BUN 19 mg/dL (4-19); BUN/Creat Ratio 28.1 RATIO (10-20); Calcium,Total 9.1 mg/dL (7.6-11.0); Carbon Dioxide 24.7 mmol/L (21.0-32.0); Chloride 104 mmol/L (98-108); Glucose 128 mg/dL (70-99); Potassium 3.8 mmol/L (3.3-5.1)
== END ==
LOC: OLS.WHLTCC 05:00
PROVIDERS: PCP Family Medicine; Visit Provider Internal Medicine
DX: E11.9 Type 2 diabetes mellitus without complications (principal)
CPT/HCPCS: 36415; 80048; 85025

== ENCOUNTER → 2025-03-25 | Outpatient (REF) | payer MEDICARE, SELFPAY ==
--- OUTSIDE RECORDS SUMMARY | 2025-03-25 04:10 | XMS RPT_ITS | CCD ---
Author Organization [facility] Care Team Providers Care Conservation Officer Name Role Phone KETTY DOWNS Attending Unavailable [...] Kameron Caruso MD Primary Care Provider Светлана GREENHOUSE MANAGER.Emma TUCKER Unavailable Saurav GREENHOUSE MANAGER.Mj TUCKER Unavailable JUVENTINO ROGERS Attending Unavailable JUVENTINO ROGERS Admitting Unavailable CATA ALFRED Attending Unavailable CATA ALFRED Admitting Unavailable Dr. Kameron Caruso MD Primary Care Provider Dr. Pieter Morgan MD Emergency Provider Kameron Caruso MD Primary Care Provider Светлана GREENHOUSE MANAGER.Emma TUCKER Unavailable Unavail able KAMERON CARUSO Referring Unavailable KAMERON CARUSO Primary Care Unavailable KAMERON CARUSO Attending Unavailable KAMERON CARUSO Primary Care Unavailable EMMA GLASGOW Attending Unavailable ZULY, KAMERON Beebe Primary Care [...] Makayla LAWSON, Dr. Barker Attending Provider CHRISTOS GIBSON Attending Unavailable CONSULT, GASTROENTEROLOGY Consulting PIETER Wolf Referring Unavailable PREMA RAMOS Admitting Unavailable ZULY, KAMERON Beebe Primary Care Unavailable BITTAR, RICHARD Referring Unavailable MADONNA, LUCINDA S Attending Unavailable MADONNA, LUCINDA S Admitting Unavailable Dr. Safia Ruelas MD Attending Provider Claudio [employer]PER[employer]-CBret Attending Provider Safia Ruelas MD Referring Provider UnavailDr. Kameron Marquez MD Primary Care Provider [phone] Safia Ruelas MD Attending Provider UnavailDr. Safia Ulloa MD Attending Provider Claudio [employer]C, Bret Attending Provider Safia Ruelas MD Referring Provider UnavailDr. Kameron Marquez MD Referring Provider [phone] Dr. Mj Benavides MD Attending Provider Dr. Kameron Caruso MD Primary Care Physician Safia Ruelas MD Attending Physician Unavail able Claudio [employer]-CBret Attending Physician Dr. Safia Ruelas MD Attending Physician Safia Ruelas MD Referring Provider Alexandra CARUSO MD, DR MELO Primary Care Unavailab shital SCHEBEULAH DO, SILVINO Admitting Unavailable DAE DO, SILVINO Attending Unavailable BRYON LAWSON, DR REECE Consulting Unavailab shital CORRINE DO, NANDO Consulting Unavailable SUDARSHAN GREENHOUSE MANAGER-DOUBLER OPERATOR, AMI Hwang Consulting Unavailrobb GIBSON PhD, MATTHEW Zamudio Consulting Unavailable Zuly LAWSON, Dr. Melo Primary Care Physician Safia Ruelas MD Attending Physician Unavail able Claudio CASH-CBret Attending Physician Jessenia LAWSON, Dr. Baig Attending Physician [phone] Olequyen OLS, Efewongbe Attending Unavailabl e Kameron Caruso Primary Care Unavailable Oleghe OLS, Efewongbe Referring Unavailabl e Oleghe OLS, Efewongbe Attending UnavailKameron [...] e Oleghe OLS, Efewongbe Attending Unavailabl e ElderbrockKameron Primary Care Unavailable Oleghe OLS, Efewongbe Attending Unavailabl e ElderbroKameron newman Primary Care Unavailable Oleghe OLS, Efewongbe Attending Unavailabl e ElderbroKameron newman Primary Care Unavailable Oleghe OLS, Efewongbe Attending Unavailabl e ElderbroKameron newman Primary Care Unavailable Oleghe OLS, Efewongbe Attending Unavailabl e ElderbroKameron newman Primary Care Unavailable Oleghe OLS, Efewongbe Attending Unavailabl e Kameron Caruso Primary Care Unavailable Pieter Morgan Attending Unavailable [...] e [place], Kameron Primary Care Unavailable [place] [employer], Bret Attending Unavailable [place], Kameron Primary Care Unavailable Oleghe OLS, Efewongbe Attending Unavailabl e [place], Kameron Primary Care Unavailable [place], Kameron Primary Care Unavailable [place] [employer], Bret Attending Unavailable [place], Kameron Primary Care Unavailable [place] [employer], Bret Attending Unavailable [place], Kameron Primary Care Unavailable Oleghe, Efewongbe Attending Unavailable [place], Kameron Primary Care Unavailable MakaylaAdriel andrewsril Attending Unavailable [place], Kameron Referring Unavailable [place], Kameron Primary Care Unavailable Oleghe, Efewongbe Attending Unavailable [place] [employer], Bret Attending Unavailable [place], Kameron Primary Care Unavailable [place] [employer], Bret Attending Unavailable [place], Kameron Primary Care Unavailable Oleghe, Efewongbe Attending Unavailable [place], Kameron Primary Care Unavailable [place] [employer], Bret Attending Unavailable [place], Kameron Primary Care [...] reactions to drug 6 Other (See Comments) [place], [place] (2 sources) Other Propensity to adverse reactions 6 Shortness Of Breath [place], [place] (20 sources) Benzocaine; Translations: [BENZOCAINE] Drug Allergy 6 Rash [facility] Work Phone: (20 sources) Cocaine; Translations: [COCAINE] Drug Allergy 9 Inverted T waves [facility] Work Phone: (20 sources) Sulfonamides (Antibiotic); Translations: [SULFA (SULFONAMIDE ANTIBIOTICS)] Propensity to adverse reactions 6 Intolerance [facility] Work Phone: (20 sources) Perfumes; Translations: [PERFUMES] Propensity to adverse reactions 6 Shortness of Breath [facility] Work Phone: (13 sources) Sulfonamides (Antibiotic) Allergy to substance 5 Unknown [facility] (15 sources) perfume; Translations: [perfume] Allergy to substance 5 Shortness of breath [facility] (1 source) Cocaine; Translations: [cocaine nasal] Drug Allergy [facility] (1 source) Codeine; Translations: [codeine] Drug Allergy Pharyngeal swelling (finding) [facility] (1 source) Sulfonamide; Translations: [sulfa drugs] Drug allergy [facility] (1 source) Benzocaine Drug Allergy 5 [facility] (1 source) Cocaine Drug Allergy 5 [facility] (1 source) Sulfonamides (Antibiotic) Drug allergy (disorder) 5 [facility] Medications Current Medications Medication [...] End: 08-09-2024 Start: 07-03-2024 Start: 11-25-2022 End: 07-16-2024 take 1 tablet by mouth at bedtime [...] kidney disease, unspecified CKD stage, unspecified whether half-way insulin use (HCC) , Type 2 diabetes [...] kidney disease, unspecified CKD stage, unspecified whether half-way insulin use (HCC) Take 1 tablet by [...] 08-15-2024 Start: 08-04-2024 End: 08-09-2024 triamcinolone acetonide 0.18871 mg/mg topical ointment (3 sources) Corticosteroid Start: [...] HOURS, First dose (after last modification) on 3/22/25 at 1800, Until Discontinued, Correction factor parameters [...] glucose is greater than 200mg/dl, then notify yard warehouse worker. 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] 08-02-2024 Episodic Other [...] Onset: 08-15-2024 Episodic Other aftercare (1 source) penitentiary (current) use of aspirin; Translations: [marine oil terminal superintendent (current) use of aspirin] Onset: 08-15-2024 Episodic Other aftercare (1 source) 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; Translations: [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] Onset: 08-15-2024 Episodic Other aftercare (1 source) marine oil terminal superintendent (current) use of oral hypoglycemic drugs; Translations: [penitentiary (current) use of oral hypoglycemic drugs] Onset: [...] Auto (Unsp spec) [#/Vol] 2.89 10*3/uL 0.83-4.51 [facility] Anion gap in Serum or Plasma Ordered By: Safia Ruelas on 03-04-2025 Anion gap [Moles/Vol] 12 mmol/L 5-15 [facility] Automated lymphocyte count a s percentage of total leukocytesOrdered By: Safia Ruelas on 03-04-2025 Lymphocytes/100 WBC Auto (Unsp spec) 32.0 % 19-41 [facility] BUN/creatinine ratioOrdered By: Safia Ruelas on 03-04-2025 Urea nitrogen/Creatinine [Mass ratio] 28.8 mg/mg High 10- [facility] Basophil percentageOrdered B y: Safia Ruelas on 03-04-2025 Basophils/100 WBC (Bld) 0.7 % 0-1 [facility] Carbon dioxide, total [Moles /volume] in Central venous bloodOrdered By: Safia Ruelas on 03-04-2025 CO2 [Moles/Vol] 25.6 mmol/L 21.0-32.0 [facility] Chloride assayOrdered By: Balbir Ruelas on 03-04-2025 Chloride [Moles/Vol] 104 mmol/L 98-108 [facility] Eosinophil percentageOrdered By: Safia Ruelas on 03-04-2025 Eosinophils/100 WBC (Bld) 2.1 % 0-5 [facility] Erythrocyte distribution wid th ratioOrdered By: Safia Ruelas on 03-04-2025 Erythrocyte distribution width (RBC) [Ratio] 14.5 % 11.6-14.6 [facility] Erythrocyte distribution wid th standard deviationOrdered By: Safia Ruelas on 03-04-2025 Erythrocyte distribution width (RBC) [Ratio] 50.6 fl High 35.1-43.9 [facility] Glomerular filtration rate ( GFR) estimation/1.73 sq m using serum, plasma, or whole bOrdered By: Safia Ruelas on 03-04-2025 GFR/1.73 sq M.predicted among non-blacks MDRD (S/P/Bld) [Vol rate/Area] 73 mL/min/{1.73_m2} >60 [facility] Hematocrit Auto (Bld) [Volum e fraction]Ordered By: Leonidesgrassflatskye Ruelas on 03-04-2025 Hematocrit (Bld) [Volume fraction] 38.1 % 37-47 [facility] Hemoglobin measurementOrdere d By: Safia Ruelas on 03-04-2025 Hemoglobin (Bld) [Mass/Vol] 12.0 g/dL 12.0-15.0 [facility] Immature granulocytes/100 WB C Auto (Bld)Ordered By: Safia Ruelas on 03-04-2025 Immature granulocytes/100 WBC (Bld) 0.300 % 0.0-0.9 [facility] MCV (mean corpuscular volume ) determinationOrdered By: Safia Ruelas on 03-04-2025 MCV (RBC) [Entitic vol] 94.1 fL 81-99 [facility] Mean corpuscular hemoglobin (MCH) determinationOrdered By: Safia Ruelas on 03-04-2025 MCH (RBC) [Entitic mass] 29.6 pg 27.0-32.0 [facility] Monocyte percentageOrdered B y: Safia Ruelas on 03-04-2025 Monocytes/100 WBC (Bld) 8.5 % 0-10 [facility] Neutrophil percentageOrdered By: Safia Ruelas on 03-04-2025 Neutrophils/100 WBC (Bld) 56.4 % 47-70 [facility] Platelet countOrdered By: Balbir sherry Ruelas on 03-04-2025 Platelets (Bld) [#/Vol] 246 10*3/uL 150-450 [facility] Potassium measurement (mass/ volume)Ordered By: Safia Cheoquyen on 03-04-2025 Potassium (Unsp spec) [Mass/Vol] 3.9 mmol/L 3.3-5.1 [facility] RBC Auto (Bld) [#/Vol]Ordere d By: Safia Cheoquyen on 03-04-2025 RBC (Bld) [#/Vol] 4.05 10*6/uL Low 4.2-5.4 [facility] Serum creatinine measurement (mass/volume)Ordered By: Balbirjean mariejosé antonio Cheoquyen on 03-04-2025 Creatinine [Mass/Vol] 0.82 mg/dL 0.70-1.20 [facility] Serum glucose measurement (m ass/volume)Ordered By: Leonidesdesireeskye Ruelas on 03-04-2025 Glucose [Mass/Vol] 157 mg/dL High 70-99 [facility] Serum or plasma calcium dayna urement (mass/volume)Ordered By: Balbirjean mariejosé antonio Cheoquyen on 03-04-2025 Calcium [Mass/Vol] 9.4 mg/dL 7.6-11.0 [facility] Serum or plasma urea nitroge n measurement (mass/volume)Ordered By: Balbirsherry Griderbonimelanie on 03-04-2025 Urea nitrogen [Mass/Vol] 24 mg/dL High 4-19 [facility] Sodium levelOrdered By: Leonides chou Cheobonimelanie on 03-04-2025 Sodium [Moles/Vol] 142 mmol/L 133-145 [facility] White blood cell (WBC) count Ordered By: Balbirjean mariejosé antonio Cheoquyen on 03-04-2025 WBC (Bld) [#/Vol] 9.0 10*3/uL 4.4-11.0 [facility] Absolute lymphocyte countOrd ered By: Safia Cheobonimelanie on 02-25-2025 Lymphocytes Auto (Unsp spec) [#/Vol] 3.32 10*3/uL 0.83-4.51 [facility] Anion gap in Serum or Plasma Ordered By: Safia Ruelas on 02-25-2025 Anion gap [Moles/Vol] 12 mmol/L 5- [facility] Automated lymphocyte count a s percentage of total leukocytesOrdered By: Safia Ruelas on 02-25-2025 Lymphocytes/100 WBC Auto (Unsp spec) 36.7 % 19- [facility] BUN/creatinine ratioOrdered By: Safia Ruelas on 02-25-2025 Urea nitrogen/Creatinine [Mass ratio] 20.5 mg/mg High 10- [facility] Basophil percentageOrdered B y: Safia Ruelas on 02-25-2025 Basophils/100 WBC (Bld) 0.6 % 0-1 [facility] Carbon dioxide, total [Moles /volume] in Central venous bloodOrdered By: Leonidesgrassflatskye Ruelas on 02-25-2025 CO2 [Moles/Vol] 25.9 mmol/L 21.0-32.0 [facility] Chloride assayOrdered By: Balbir jean mariejosé antonio Ruelas on 02-25-2025 Chloride [Moles/Vol] 103 mmol/L 98-108 [facility] Eosinophil percentageOrdered By: sherry Ruelas on 02-25-2025 Eosinophils/100 WBC (Bld) 2.2 % 0-5 [facility] Erythrocyte distribution wid th ratioOrdered By: Safia Ruelas on 02-25-2025 Erythrocyte distribution width (RBC) [Ratio] 14.3 % 11.6-14.6 [facility] Erythrocyte distribution wid th standard deviationOrdered By: sherry Ruelas on 02-25-2025 Erythrocyte distribution width (RBC) [Ratio] 48.5 fl High 35.1-43.9 [facility] Glomerular filtration rate ( GFR) estimation/1.73 sq m using serum, plasma, or whole bOrdered By: Safia Ruelas on 02-25-2025 GFR/1.73 sq M.predicted among non-blacks MDRD (S/P/Bld) [Vol rate/Area] 75 mL/min/{1.73_m2} >60 [facility] Hematocrit Auto (Bld) [Volum e fraction]Ordered By: Safia Ruelas on 02-25-2025 Hematocrit (Bld) [Volume fraction] 39.0 % 37-47 [facility] Hemoglobin measurementOrdere d By: Leonidesjosé antonio Cheobonimelanie on 02-25-2025 Hemoglobin (Bld) [Mass/Vol] 12.3 g/dL 12.0-15.0 [facility] Immature granulocytes/100 WB C Auto (Bld)Ordered By: Safia Ruelas on 02-25-2025 Immature granulocytes/100 WBC (Bld) 0.400 % 0.0-0.9 [facility] MCV (mean corpuscular volume ) determinationOrdered By: Safia Ruelas on 02-25-2025 MCV (RBC) [Entitic vol] 92.4 fL 81-99 [facility] Mean corpuscular hemoglobin (MCH) determinationOrdered By: Safia Ruelas on 02-25-2025 MCH (RBC) [Entitic mass] 29.1 pg 27.0-32.0 [facility] Monocyte percentageOrdered B y: Safia Griderbonimelanie on 02-25-2025 Monocytes/100 WBC (Bld) 7.7 % 0-10 [facility] Neutrophil percentageOrdered By: Balbirsherry Griderbonimelanie on 02-25-2025 Neutrophils/100 WBC (Bld) 52.4 % 47-70 [facility] Platelet countOrdered By: Balbir sherry Jessenia on 02-25-2025 Platelets (Bld) [#/Vol] 257 10*3/uL 150-450 [facility] Potassium measurement (mass/ volume)Ordered By: Safia Ruelas on 02-25-2025 Potassium (Unsp spec) [Mass/Vol] 3.5 mmol/L 3.3-5.1 [facility] RBC Auto (Bld) [#/Vol]Ordere d By: Safia Ruelas on 02-25-2025 RBC (Bld) [#/Vol] 4.22 10*6/uL 4.2-5.4 [facility] Serum creatinine measurement (mass/volume)Ordered By: Safia Ruelas on 02-25-2025 Creatinine [Mass/Vol] 0.80 mg/dL 0.70-1.20 [facility] Serum glucose measurement (m ass/volume)Ordered By: Safia Ruelas on 02-25-2025 Glucose [Mass/Vol] 121 mg/dL High 70-99 [facility] Serum or plasma calcium dayna urement (mass/volume)Ordered By: Safia Ruelas on 02-25-2025 Calcium [Mass/Vol] 9.2 mg/dL 7.6-11.0 [facility] Serum or plasma urea nitroge n measurement (mass/volume)Ordered By: Safia Ruelas on 02-25-2025 Urea nitrogen [Mass/Vol] 16 mg/dL 4-19 [facility] Sodium levelOrdered By: Leonides jiménezradha Jessenia on 02-25-2025 Sodium [Moles/Vol] 140 mmol/L 133-145 [facility] TSH DL <= 0.005 mIU/L QnOrde red By: Safia Ruelas on 02-25-2025 TSH Qn 0.226 uIU/mL Low 0.300-4.200 [facility] White blood cell (WBC) count Ordered By: Safia Ruelas on 02-25-2025 WBC (Bld) [#/Vol] 9.0 10*3/uL 4.4-11.0 [facility] Absolute lymphocyte countOrd ered By: Safia Ruelas on 02-18-2025 Lymphocytes Auto (Unsp spec) [#/Vol] 1.78 10*3/uL 0.83-4.51 [facility] Anion gap in Serum or Plasma Ordered By: Safia Ruelas on 02-18-2025 Anion gap [Moles/Vol] 13 mmol/L 5-15 [facility] Automated lymphocyte count a s percentage of total leukocytesOrdered By: Safia Ruelas on 02-18-2025 Lymphocytes/100 WBC Auto (Unsp spec) 22.5 % 19-41 [facility] BUN/creatinine ratioOrdered By: Safia Ruelas on 02-18-2025 Urea nitrogen/Creatinine [Mass ratio] 23.7 mg/mg High 10-20 [facility] Basophil percentageOrdered B y: Safia Ruelas on 02-18-2025 Basophils/100 WBC (Bld) 0.4 % 0-1 [facility] Carbon dioxide, total [Moles /volume] in Central venous bloodOrdered By: Safia Ruelas on 02-18-2025 CO2 [Moles/Vol] 23.2 mmol/L 21.0-32.0 [facility] Chloride assayOrdered By: Balbir Ruelas on 02-18-2025 Chloride [Moles/Vol] 102 mmol/L 98-108 [facility] Eosinophil percentageOrdered By: Safia Ruelas on 02-18-2025 Eosinophils/100 WBC (Bld) 0.4 % 0-5 [facility] Erythrocyte distribution wid th ratioOrdered By: Safia Ruelas on 02-18-2025 Erythrocyte distribution width (RBC) [Ratio] 14.3 % 11.6-14.6 [facility] Erythrocyte distribution wid th standard deviationOrdered By: Safia Ruelas on 02-18-2025 Erythrocyte distribution width (RBC) [Ratio] 48.0 fl High 35.1-43.9 [facility] Glomerular filtration rate ( GFR) estimation/1.73 sq m using serum, plasma, or whole bOrdered By: Safia Ruelas on 02-18-2025 GFR/1.73 sq M.predicted among non-blacks MDRD (S/P/Bld) [Vol rate/Area] 76 mL/min/{1.73_m2} >60 [facility] Hematocrit Auto (Bld) [Volum e fraction]Ordered By: Safia Ruelas on 02-18-2025 Hematocrit (Bld) [Volume fraction] 39.0 % 37-47 [facility] Hemoglobin measurementOrdere d By: Safia Ruelas on 02-18-2025 Hemoglobin (Bld) [Mass/Vol] 12.5 g/dL 12.0-15.0 [facility] Immature granulocytes/100 WB C Auto (Bld)Ordered By: Safia Ruelas on 02-18-2025 Immature granulocytes/100 WBC (Bld) 0.300 % 0.0-0.9 [facility] MCV (mean corpuscular volume ) determinationOrdered By: Safia Ruelas on 02-18-2025 MCV (RBC) [Entitic vol] 92.2 fL 81-99 [facility] Mean corpuscular hemoglobin (MCH) determinationOrdered By: Safia Ruelas on 02-18-2025 MCH (RBC) [Entitic mass] 29.6 pg 27.0-32.0 [facility] Monocyte percentageOrdered B y: Safia Ruelas on 02-18-2025 Monocytes/100 WBC (Bld) 4.8 % 0-10 [facility] Neutrophil percentageOrdered By: Safia Ruelas on 02-18-2025 Neutrophils/100 WBC (Bld) 71.6 % High 47-70 [facility] Platelet countOrdered By: Balbir Ruelas on 02-18-2025 Platelets (Bld) [#/Vol] 263 10*3/uL 150-450 [facility] Potassium measurement (mass/ volume)Ordered By: Safia Ruelas on 02-18-2025 Potassium (Unsp spec) [Mass/Vol] 4.1 mmol/L 3.3-5.1 [facility] RBC Auto (Bld) [#/Vol]Ordere d By: Safia Ruelas on 02-18-2025 RBC (Bld) [#/Vol] 4.23 10*6/uL 4.2-5.4 [facility] Serum creatinine measurement (mass/volume)Ordered By: Safia Ruelas on 02-18-2025 Creatinine [Mass/Vol] 0.79 mg/dL 0.70-1.20 [facility] Serum glucose measurement (m ass/volume)Ordered By: Safia Ruelas on 02-18-2025 Glucose [Mass/Vol] 165 mg/dL High 70-99 [facility] Serum or plasma calcium dayna urement (mass/volume)Ordered By: Safia Ruelas on 02-18-2025 Calcium [Mass/Vol] 9.2 mg/dL 7.6-11.0 [facility] Serum or plasma urea nitroge n measurement (mass/volume)Ordered By: Safia Ruelas on 02-18-2025 Urea nitrogen [Mass/Vol] 19 mg/dL 4-19 [facility] Sodium levelOrdered By: Leonides Ruelas on 02-18-2025 Sodium [Moles/Vol] 138 mmol/L 133-145 [facility] White blood cell (WBC) count Ordered By: Balbirjean mariejosé antonio Ruelas on 02-18-2025 WBC (Bld) [#/Vol] 7.9 10*3/uL 4.4-11.0 [facility] Absolute lymphocyte countOrd ered By: Safia Ruelas on 02-11-2025 Lymphocytes Auto (Unsp spec) [#/Vol] 2.71 10*3/uL 0.83-4.51 [facility] Anion gap in Serum or Plasma Ordered By: Balbirjean mariejosé antonio Cheoquyen on 02-11-2025 Anion gap [Moles/Vol] 14 mmol/L 5-15 [facility] Automated lymphocyte count a s percentage of total leukocytesOrdered By: Safia Cheoquyen on 02-11-2025 Lymphocytes/100 WBC Auto (Unsp spec) 36.1 % 19-41 [facility] BUN/creatinine ratioOrdered By: Balbirjean mariejosé antonio Ruelas on 02-11-2025 Urea nitrogen/Creatinine [Mass ratio] 23.1 mg/mg High 10-20 [facility] Basophil percentageOrdered B y: Safia Ruelas on 02-11-2025 Basophils/100 WBC (Bld) 0.7 % 0-1 [facility] Carbon dioxide, total [Moles /volume] in Central venous bloodOrdered By: Safia Cheoquyen on 02-11-2025 CO2 [Moles/Vol] 21.6 mmol/L 21.0-32.0 [facility] Chloride assayOrdered By: Balbir sherry Cheobonimelanie on 02-11-2025 Chloride [Moles/Vol] 103 mmol/L 98-108 [facility] Eosinophil percentageOrdered By: Safia Westonmelanie on 09-30-2025 Eosinophils/100 WBC (Bld) 2.0 % 0-5 [facility] Erythrocyte distribution wid th ratioOrdered By: Safia Ruelas on 02-11-2025 Erythrocyte distribution width (RBC) [Ratio] 14.4 % 11.6-14.6 [facility] Erythrocyte distribution wid th standard deviationOrdered By: Safia Ruelas on 02-11-2025 Erythrocyte distribution width (RBC) [Ratio] 47.5 fl High 35.1-43.9 [facility] Glomerular filtration rate ( GFR) estimation/1.73 sq m using serum, plasma, or whole bOrdered By: Leonidesgrassflatskye Ruelas on 02-11-2025 GFR/1.73 sq M.predicted among non-blacks MDRD (S/P/Bld) [Vol rate/Area] 72 mL/min/{1.73_m2} >60 [facility] Hematocrit Auto (Bld) [Volum e fraction]Ordered By: Leonidesgrassflatskye Ruelas on 02-11-2025 Hematocrit (Bld) [Volume fraction] 37.4 % 37-47 [facility] Hemoglobin measurementOrdere d By: jean mariegrassflatskye Ruelas on 02-11-2025 Hemoglobin (Bld) [Mass/Vol] 12.4 g/dL 12.0-15.0 [facility] Immature granulocytes/100 WB C Auto (Bld)Ordered By: Safia Ruelas on 02-11-2025 Immature granulocytes/100 WBC (Bld) 0.400 % 0.0-0.9 [facility] MCV (mean corpuscular volume ) determinationOrdered By: Safia Ruelas on 02-11-2025 MCV (RBC) [Entitic vol] 90.3 fL 81-99 [facility] Mean corpuscular hemoglobin (MCH) determinationOrdered By: sherry Ruelas on 02-11-2025 MCH (RBC) [Entitic mass] 30.0 pg 27.0-32.0 [facility] Monocyte percentageOrdered B y: Safia Ruelas on 02-11-2025 Monocytes/100 WBC (Bld) 6.8 % 0-10 [facility] Neutrophil percentageOrdered By: Safia Ruelas on 02-11-2025 Neutrophils/100 WBC (Bld) 54.0 % 47-70 [facility] Platelet countOrdered By: Balbir Ruelas on 02-11-2025 Platelets (Bld) [#/Vol] 260 10*3/uL 150-450 [facility] Potassium measurement (mass/ volume)Ordered By: Safia Ruelas on 02-11-2025 Potassium (Unsp spec) [Mass/Vol] 3.6 mmol/L 3.3-5.1 [facility] RBC Auto (Bld) [#/Vol]Ordere d By: Safia Ruelas on 02-11-2025 RBC (Bld) [#/Vol] 4.14 10*6/uL Low 4.2-5.4 [facility] Serum creatinine measurement (mass/volume)Ordered By: Safia Ruelas on 02-11-2025 Creatinine [Mass/Vol] 0.83 mg/dL 0.70-1.20 [facility] Serum glucose measurement (m ass/volume)Ordered By: Safia Ruelas on 02-11-2025 Glucose [Mass/Vol] 110 mg/dL High 70-99 [facility] Serum or plasma calcium dayna urement (mass/volume)Ordered By: Safia Ruelas on 02-11-2025 Calcium [Mass/Vol] 9.1 mg/dL 7.6-11.0 [facility] Serum or plasma urea nitroge n measurement (mass/volume)Ordered By: Safia Ruelas on 02-11-2025 Urea nitrogen [Mass/Vol] 19 mg/dL 4-19 [facility] Sodium levelOrdered By: Leonides Ruelas on 02-11-2025 Sodium [Moles/Vol] 139 mmol/L 133-145 [facility] White blood cell (WBC) count Ordered By: Safia Ruelas on 02-11-2025 WBC (Bld) [#/Vol] 7.5 10*3/uL 4.4-11.0 [facility] Absolute lymphocyte countOrd ered By: Safia Ruelas on 02-04-2025 Lymphocytes Auto (Unsp spec) [#/Vol] 3.03 10*3/uL 0.83-4.51 [facility] Anion gap in Serum or Plasma Ordered By: Safia Ruelas on 02-04-2025 Anion gap [Moles/Vol] 12 mmol/L 5-15 [facility] Automated lymphocyte count a s percentage of total leukocytesOrdered By: Safia Griderbonimelanie on 02-04-2025 Lymphocytes/100 WBC Auto (Unsp spec) 36.1 % 19-41 [facility] BUN/creatinine ratioOrdered By: Safia Griderbonimelanie on 02-04-2025 Urea nitrogen/Creatinine [Mass ratio] 21.0 mg/mg High 10-20 [facility] Basophil percentageOrdered B y: Leonidesdesireeskye Griderbonimelanie on 02-04-2025 Basophils/100 WBC (Bld) 0.7 % 0-1 [facility] Carbon dioxide, total [Moles /volume] in Central venous bloodOrdered By: Leonidesgrassflatskye Griderbonimelanie on 02-04-2025 CO2 [Moles/Vol] 23.5 mmol/L 21.0-32.0 [facility] Chloride assayOrdered By: Balbir jean mariejosé antonio Ruelas on 02-04-2025 Chloride [Moles/Vol] 103 mmol/L 98-108 [facility] Eosinophil percentageOrdered By: jean mariegrassflatskye Griderbonimelanie on 02-04-2025 Eosinophils/100 WBC (Bld) 2.3 % 0-5 [facility] Erythrocyte distribution wid th ratioOrdered By: Safia Griderbonimelanie on 02-04-2025 Erythrocyte distribution width (RBC) [Ratio] 14.5 % 11.6-14.6 [facility] Erythrocyte distribution wid th standard deviationOrdered By: jean mariegrassflatskye Griderbonimelanie on 02-04-2025 Erythrocyte distribution width (RBC) [Ratio] 47.8 fl High 35.1-43.9 [facility] Glomerular filtration rate ( GFR) estimation/1.73 sq m using serum, plasma, or whole bOrdered By: Safia Ruelas on 02-04-2025 GFR/1.73 sq M.predicted among non-blacks MDRD (S/P/Bld) [Vol rate/Area] 85 mL/min/{1.73_m2} >60 [facility] Hematocrit Auto (Bld) [Volum e fraction]Ordered By: Safia Ruelas on 02-04-2025 Hematocrit (Bld) [Volume fraction] 38.3 % 37-47 [facility] Hemoglobin measurementOrdere d By: Safia Ruelas on 02-04-2025 Hemoglobin (Bld) [Mass/Vol] 12.4 g/dL 12.0-15.0 [facility] Immature granulocytes/100 WB C Auto (Bld)Ordered By: Safia Cheobonimelanie on 02-04-2025 Immature granulocytes/100 WBC (Bld) 0.400 % 0.0-0.9 [facility] MCV (mean corpuscular volume ) determinationOrdered By: Balbirjean mariejosé antonio Cheobonimelanie on 02-04-2025 MCV (RBC) [Entitic vol] 90.3 fL 81-99 [facility] Mean corpuscular hemoglobin (MCH) determinationOrdered By: Balbirjean mariejosé antonio Cheoquyen on 02-04-2025 MCH (RBC) [Entitic mass] 29.2 pg 27.0-32.0 [facility] Monocyte percentageOrdered B y: Safia Ruelas on 02-04-2025 Monocytes/100 WBC (Bld) 7.9 % 0-10 [facility] Neutrophil percentageOrdered By: Safia Ruelas on 02-04-2025 Neutrophils/100 WBC (Bld) 52.6 % 47-70 [facility] Platelet countOrdered By: Balbir Ruelas on 02-04-2025 Platelets (Bld) [#/Vol] 278 10*3/uL 150-450 [facility] Potassium measurement (mass/ volume)Ordered By: Safia Cheoquyen on 02-04-2025 Potassium (Unsp spec) [Mass/Vol] 3.4 mmol/L 3.3-5.1 [facility] RBC Auto (Bld) [#/Vol]Ordere d By: Safia Cheoquyen on 02-04-2025 RBC (Bld) [#/Vol] 4.24 10*6/uL 4.2-5.4 [facility] Serum creatinine measurement (mass/volume)Ordered By: Safia Ruelas on 02-04-2025 Creatinine [Mass/Vol] 0.71 mg/dL 0.70-1.20 [facility] Serum glucose measurement (m ass/volume)Ordered By: Safia Ruelas on 02-04-2025 Glucose [Mass/Vol] 141 mg/dL High 70-99 [facility] Serum or plasma calcium dayna urement (mass/volume)Ordered By: Safia Ruelas on 02-04-2025 Calcium [Mass/Vol] 9.0 mg/dL 7.6-11.0 [facility] Serum or plasma urea nitroge n measurement (mass/volume)Ordered By: Safia Ruelas on 02-04-2025 Urea nitrogen [Mass/Vol] 15 mg/dL 4- [facility] Sodium levelOrdered By: Leonides jiménezradha Jessenia on 02-04-2025 Sodium [Moles/Vol] 139 mmol/L 133-145 [facility] White blood cell (WBC) count Ordered By: Safia Ruelas on 02-04-2025 WBC (Bld) [#/Vol] 8.4 10*3/uL 4.4-11.0 [facility] Absolute lymphocyte countOrd ered By: Safia Ruelas on 01-28-2025 Lymphocytes Auto (Unsp spec) [#/Vol] 3.03 10*3/uL 0.83-4.51 [facility] Anion gap in Serum or Plasma Ordered By: Safia Ruelas on 01-28-2025 Anion gap [Moles/Vol] 12 mmol/L 5- [facility] Automated lymphocyte count a s percentage of total leukocytesOrdered By: Safia Ruelas on 01-28-2025 Lymphocytes/100 WBC Auto (Unsp spec) 36.0 % - [facility] BUN/creatinine ratioOrdered By: Safia Ruelas on 01-28-2025 Urea nitrogen/Creatinine [Mass ratio] 20.0 mg/mg 10-20 [facility] Basophil percentageOrdered B y: Safia Ruelas on 01-28-2025 Basophils/100 WBC (Bld) 0.6 % 0-1 [facility] Carbon dioxide, total [Moles /volume] in Central venous bloodOrdered By: Safia Ruelas on 01-28-2025 CO2 [Moles/Vol] 24.7 mmol/L 21.0-32.0 [facility] Chloride assayOrdered By: Balbir Ruelas on 01-28-2025 Chloride [Moles/Vol] 103 mmol/L 98-108 [facility] Eosinophil percentageOrdered By: Safia Ruelas on 01-28-2025 Eosinophils/100 WBC (Bld) 1.8 % 0-5 [facility] Erythrocyte distribution wid th ratioOrdered By: Safia Ruelas on 01-28-2025 Erythrocyte distribution width (RBC) [Ratio] 14.6 % 11.6-14.6 [facility] Erythrocyte distribution wid th standard deviationOrdered By: jean mariegrassflatskye Ruelas on 01-28-2025 Erythrocyte distribution width (RBC) [Ratio] 48.6 fl High 35.1-43.9 [facility] Glomerular filtration rate ( GFR) estimation/1.73 sq m using serum, plasma, or whole bOrdered By: Safia Ruelas on 01-28-2025 GFR/1.73 sq M.predicted among non-blacks MDRD (S/P/Bld) [Vol rate/Area] 88 mL/min/{1.73_m2} >60 [facility] Hematocrit Auto (Bld) [Volum e fraction]Ordered By: Safia Ruelas on 01-28-2025 Hematocrit (Bld) [Volume fraction] 38.1 % 37-47 [facility] Hemoglobin measurementOrdere d By: Safia Ruelas on 01-28-2025 Hemoglobin (Bld) [Mass/Vol] 12.3 g/dL 12.0-15.0 [facility] Immature granulocytes/100 WB C Auto (Bld)Ordered By: Safia Ruelas on 01-28-2025 Immature granulocytes/100 WBC (Bld) 0.400 % 0.0-0.9 [facility] MCV (mean corpuscular volume ) determinationOrdered By: Safia Ruelas on 01-28-2025 MCV (RBC) [Entitic vol] 90.7 fL 81-99 [facility] Mean corpuscular hemoglobin (MCH) determinationOrdered By: Safia Ruelas on 01-28-2025 MCH (RBC) [Entitic mass] 29.3 pg 27.0-32.0 [facility] Monocyte percentageOrdered B y: Safia Ruelas on 01-28-2025 Monocytes/100 WBC (Bld) 8.2 % 0-10 [facility] Neutrophil percentageOrdered By: Safia Ruelas on 01-28-2025 Neutrophils/100 WBC (Bld) 53.0 % 47-70 [facility] Platelet countOrdered By: Balbir Ruelas on 01-28-2025 Platelets (Bld) [#/Vol] 261 10*3/uL 150-450 [facility] Potassium measurement (mass/ volume)Ordered By: Safia Cehoquyen on 01-28-2025 Potassium (Unsp spec) [Mass/Vol] 3.4 mmol/L 3.3-5.1 [facility] RBC Auto (Bld) [#/Vol]Ordere d By: Safia Ruelas on 01-28-2025 RBC (Bld) [#/Vol] 4.20 10*6/uL 4.2-5.4 [facility] Serum creatinine measurement (mass/volume)Ordered By: Safia Ruelas on 01-28-2025 Creatinine [Mass/Vol] 0.66 mg/dL Low 0.70-1.20 [facility] Serum glucose measurement (m ass/volume)Ordered By: Safia Ruelas on 01-28-2025 Glucose [Mass/Vol] 130 mg/dL High 70-99 [facility] Serum or plasma calcium dayna urement (mass/volume)Ordered By: Safia Ruelas on 01-28-2025 Calcium [Mass/Vol] 9.0 mg/dL 7.6-11.0 [facility] Serum or plasma urea nitroge n measurement (mass/volume)Ordered By: Safia Ruelas on 01-28-2025 Urea nitrogen [Mass/Vol] 13 mg/dL 4-19 [facility] Sodium levelOrdered By: Balbirjean marie josé antonio Cheobonimelanie on 01-28-2025 Sodium [Moles/Vol] 140 mmol/L 133-145 [facility] White blood cell (WBC) count Ordered By: Balbirjean mariejosé antonio Cheobonimelanie on 01-28-2025 WBC (Bld) [#/Vol] 8.4 10*3/uL 4.4-11.0 [facility] Absolute lymphocyte countOrd ered By: Leonidesdesireeskye Griderbonimelanie on 01-21-2025 Lymphocytes Auto (Unsp spec) [#/Vol] 3.26 10*3/uL 0.83-4.51 [facility] Anion gap in Serum or Plasma Ordered By: Safia Griderbonimelanie on 01-21-2025 Anion gap [Moles/Vol] 13 mmol/L 5-15 [facility] Automated lymphocyte count a s percentage of total leukocytesOrdered By: Safia Griderbonimelanie on 01-21-2025 Lymphocytes/100 WBC Auto (Unsp spec) 38.3 % 19-41 [facility] BUN/creatinine ratioOrdered By: Safia Griderbonimelanie on 01-21-2025 Urea nitrogen/Creatinine [Mass ratio] 20.0 mg/mg 10-20 [facility] Basophil percentageOrdered B y: Balbirjean mariedesireeskye Griderbonimelanie on 01-21-2025 Basophils/100 WBC (Bld) 0.6 % 0-1 [facility] Carbon dioxide, total [Moles /volume] in Central venous bloodOrdered By: Safia Griderbonimelanie on 01-21-2025 CO2 [Moles/Vol] 22.3 mmol/L 21.0-32.0 [facility] Chloride assayOrdered By: Balbir jean mariejosé antonio Ruelas on 01-21-2025 Chloride [Moles/Vol] 102 mmol/L 98-108 [facility] Eosinophil percentageOrdered By: Balbirsherry Griderbonimelanie on 01-21-2025 Eosinophils/100 WBC (Bld) 2.1 % 0-5 [facility] Erythrocyte distribution wid th ratioOrdered By: Safia Ruelas on 01-21-2025 Erythrocyte distribution width (RBC) [Ratio] 14.4 % 11.6-14.6 [facility] Erythrocyte distribution wid th standard deviationOrdered By: Safia Ruelas on 01-21-2025 Erythrocyte distribution width (RBC) [Ratio] 47.1 fl High 35.1-43.9 [facility] Glomerular filtration rate ( GFR) estimation/1.73 sq m using serum, plasma, or whole bOrdered By: Safia Ruelas on 01-21-2025 GFR/1.73 sq M.predicted among non-blacks MDRD (S/P/Bld) [Vol rate/Area] 86 mL/min/{1.73_m2} >60 [facility] Hematocrit Auto (Bld) [Volum e fraction]Ordered By: Safia Ruelas on 01-21-2025 Hematocrit (Bld) [Volume fraction] 37.8 % 37-47 [facility] Hemoglobin measurementOrdere d By: Safia Ruelas on 01-21-2025 Hemoglobin (Bld) [Mass/Vol] 12.6 g/dL 12.0-15.0 [facility] Immature granulocytes/100 WB C Auto (Bld)Ordered By: Safia Ruelas on 01-21-2025 Immature granulocytes/100 WBC (Bld) 0.400 % 0.0-0.9 [facility] MCV (mean corpuscular volume ) determinationOrdered By: Safia Ruelas on 01-21-2025 MCV (RBC) [Entitic vol] 89.6 fL 81-99 [facility] Mean corpuscular hemoglobin (MCH) determinationOrdered By: Safia Ruelas on 01-21-2025 MCH (RBC) [Entitic mass] 29.9 pg 27.0-32.0 [facility] Monocyte percentageOrdered B y: Safia Ruelas on 01-21-2025 Monocytes/100 WBC (Bld) 6.9 % 0-10 [facility] Neutrophil percentageOrdered By: Safia Ruelas on 01-21-2025 Neutrophils/100 WBC (Bld) 51.7 % 47-70 [facility] Platelet countOrdered By: Balbir Ruelas on 09-09-2025 Platelets (Bld) [#/Vol] 280 10*3/uL 150-450 [facility] Potassium measurement (mass/ volume)Ordered By: Safia Ruelas on 01-21-2025 Potassium (Unsp spec) [Mass/Vol] 3.6 mmol/L 3.3-5.1 [facility] RBC Auto (Bld) [#/Vol]Ordere d By: Safia Ruelas on 01-21-2025 RBC (Bld) [#/Vol] 4.22 10*6/uL 4.2-5.4 [facility] Serum creatinine measurement (mass/volume)Ordered By: Safia Ruelas on 01-21-2025 Creatinine [Mass/Vol] 0.71 mg/dL 0.70-1.20 [facility] Serum glucose measurement (m ass/volume)Ordered By: Safia Ruelas on 01-21-2025 Glucose [Mass/Vol] 126 mg/dL High 70-99 [facility] Serum or plasma calcium dayna urement (mass/volume)Ordered By: Safia Ruelas on 01-21-2025 Calcium [Mass/Vol] 9.0 mg/dL 7.6-11.0 [facility] Serum or plasma urea nitroge n measurement (mass/volume)Ordered By: Safia Ruelas on 01-21-2025 Urea nitrogen [Mass/Vol] 14 mg/dL 4-19 [facility] Sodium levelOrdered By: Leonides Ruelas on 01-21-2025 Sodium [Moles/Vol] 137 mmol/L 133-145 [facility] White blood cell (WBC) count Ordered By: Safia Ruelas on 01-21-2025 WBC (Bld) [#/Vol] 8.5 10*3/uL 4.4-11.0 [facility] Absolute lymphocyte countOrd ered By: Safia Ruelas on 01-14-2025 Lymphocytes Auto (Unsp spec) [#/Vol] 2.54 10*3/uL 0.83-4.51 [facility] Anion gap in Serum or Plasma Ordered By: Safia Ruelas on 09-02-2025 Anion gap [Moles/Vol] 13 mmol/L 5-15 [facility] Automated lymphocyte count a s percentage of total leukocytesOrdered By: Safia Ruelas on 01-14-2025 Lymphocytes/100 WBC Auto (Unsp spec) 30.6 % 19-41 [facility] BUN/creatinine ratioOrdered By: Safia Ruelas on 01-14-2025 Urea nitrogen/Creatinine [Mass ratio] 16.0 mg/mg 10-20 [facility] Basophil percentageOrdered B y: Safia Ruelas on 01-14-2025 Basophils/100 WBC (Bld) 0.6 % 0-1 [facility] Carbon dioxide, total [Moles /volume] in Central venous bloodOrdered By: Safia Ruelas on 01-14-2025 CO2 [Moles/Vol] 22.8 mmol/L 21.0-32.0 [facility] Chloride assayOrdered By: Balbir Ruelas on 01-14-2025 Chloride [Moles/Vol] 104 mmol/L 98-108 [facility] Eosinophil percentageOrdered By: Safia Ruelas on 01-14-2025 Eosinophils/100 WBC (Bld) 2.2 % 0-5 [facility] Erythrocyte distribution wid th ratioOrdered By: Safia Ruelas on 01-14-2025 Erythrocyte distribution width (RBC) [Ratio] 14.6 % 11.6-14.6 [facility] Erythrocyte distribution wid th standard deviationOrdered By: Safia Ruelas on 01-14-2025 Erythrocyte distribution width (RBC) [Ratio] 48.7 fl High 35.1-43.9 [facility] Glomerular filtration rate ( GFR) estimation/1.73 sq m using serum, plasma, or whole bOrdered By: Safia Ruelas on 01-14-2025 GFR/1.73 sq M.predicted among non-blacks MDRD (S/P/Bld) [Vol rate/Area] 84 mL/min/{1.73_m2} >60 [facility] Hematocrit Auto (Bld) [Volum e fraction]Ordered By: Safia Ruelas on 01-14-2025 Hematocrit (Bld) [Volume fraction] 37.6 % 37-47 [facility] Hemoglobin measurementOrdere d By: Leonidesdesireeskye Griderbonimelanie on 01-14-2025 Hemoglobin (Bld) [Mass/Vol] 12.1 g/dL 12.0-15.0 [facility] Immature granulocytes/100 WB C Auto (Bld)Ordered By: Safia Ruelas on 01-14-2025 Immature granulocytes/100 WBC (Bld) 0.500 % 0.0-0.9 [facility] MCV (mean corpuscular volume ) determinationOrdered By: Safia Ruelas on 01-14-2025 MCV (RBC) [Entitic vol] 90.8 fL 81-99 [facility] Mean corpuscular hemoglobin (MCH) determinationOrdered By: sherry Ruelas on 01-14-2025 MCH (RBC) [Entitic mass] 29.2 pg 27.0-32.0 [facility] Monocyte percentageOrdered B y: Safia Ruelas on 01-14-2025 Monocytes/100 WBC (Bld) 7.8 % 0-10 [facility] Neutrophil percentageOrdered By: [facility] on 01-14-2025 Neutrophils/100 WBC (Bld) 58.3 % 47-70 [facility] Platelet countOrdered By: Balbir randallskye Ruelas on 01-14-2025 Platelets (Bld) [#/Vol] 284 10*3/uL 150-450 [facility] Potassium measurement (mass/ volume)Ordered By: Safia Ruelas on 01-14-2025 Potassium (Unsp spec) [Mass/Vol] 3.5 mmol/L 3.3-5.1 [facility] RBC Auto (Bld) [#/Vol]Ordere d By: Safia Ruelas on 01-14-2025 RBC (Bld) [#/Vol] 4.14 10*6/uL Low 4.2-5.4 [facility] Serum creatinine measurement (mass/volume)Ordered By: Safia Ruelas on 01-14-2025 Creatinine [Mass/Vol] 0.73 mg/dL 0.70-1.20 [facility] Serum glucose measurement (m ass/volume)Ordered By: Safia Ruelas on 01-14-2025 Glucose [Mass/Vol] 137 mg/dL High 70-99 [facility] Serum or plasma calcium dayna urement (mass/volume)Ordered By: Safia Ruelas on 01-14-2025 Calcium [Mass/Vol] 8.8 mg/dL 7.6-11.0 [facility] Serum or plasma urea nitroge n measurement (mass/volume)Ordered By: Safia Ruelas on 01-14-2025 Urea nitrogen [Mass/Vol] 12 mg/dL 4-19 [facility] Sodium levelOrdered By: Leonides Ruelas on 01-14-2025 Sodium [Moles/Vol] 139 mmol/L 133-145 [facility] TSH DL <= 0.005 mIU/L QnOrde red By: Safia Ruelas on 01-14-2025 TSH Qn 1.730 uIU/mL 0.300-4.200 [facility] White blood cell (WBC) count Ordered By: Safia Ruelas on 01-14-2025 WBC (Bld) [#/Vol] 8.3 10*3/uL 4.4-11.0 [facility] Absolute lymphocyte countOrd ered By: Safia Ruelas on 01-07-2025 Lymphocytes Auto (Unsp spec) [#/Vol] 2.90 10*3/uL 0.83-4.51 [facility] Anion gap in Serum or Plasma Ordered By: Safia Ruelas on 01-07-2025 Anion gap [Moles/Vol] 12 mmol/L 5-15 [facility] Automated lymphocyte count a s percentage of total leukocytesOrdered By: Safia Ruelas on 01-07-2025 Lymphocytes/100 WBC Auto (Unsp spec) 36.3 % 19-41 [facility] BUN/creatinine ratioOrdered By: Safia Ruelas on 01-07-2025 Urea nitrogen/Creatinine [Mass ratio] 15.4 mg/mg 10-20 [facility] Basophil percentageOrdered B y: Safia Ruelas on 01-07-2025 Basophils/100 WBC (Bld) 0.6 % 0-1 [facility] Carbon dioxide, total [Moles /volume] in Central venous bloodOrdered By: Safia Ruelas on 01-07-2025 CO2 [Moles/Vol] 23.2 mmol/L 21.0-32.0 [facility] Chloride assayOrdered By: Balbir Ruelas on 01-07-2025 Chloride [Moles/Vol] 104 mmol/L 98-108 [facility] Eosinophil percentageOrdered By: Safia Ruelas on 01-07-2025 Eosinophils/100 WBC (Bld) 2.3 % 0-5 [facility] Erythrocyte distribution wid th ratioOrdered By: Safia Ruelas on 01-07-2025 Erythrocyte distribution width (RBC) [Ratio] 14.6 % 11.6-14.6 [facility] Erythrocyte distribution wid th standard deviationOrdered By: Safia Ruelas on 01-07-2025 Erythrocyte distribution width (RBC) [Ratio] 48.5 fl High 35.1-43.9 [facility] Glomerular filtration rate ( GFR) estimation/1.73 sq m using serum, plasma, or whole bOrdered By: Safia Ruelas on 01-07-2025 GFR/1.73 sq M.predicted among non-blacks MDRD (S/P/Bld) [Vol rate/Area] 86 mL/min/{1.73_m2} >60 [facility] Hematocrit Auto (Bld) [Volum e fraction]Ordered By: Safia Ruelas on 01-07-2025 Hematocrit (Bld) [Volume fraction] 36.6 % Low 37-47 [facility] Hemoglobin measurementOrdere d By: Safia Ruelas on 01-07-2025 Hemoglobin (Bld) [Mass/Vol] 11.9 g/dL Low 12.0-15.0 [facility] Immature granulocytes/100 WB C Auto (Bld)Ordered By: Safia Ruelas on 01-07-2025 Immature granulocytes/100 WBC (Bld) 0.300 % 0.0-0.9 [facility] MCV (mean corpuscular volume ) determinationOrdered By: Safia Ruelas on 01-07-2025 MCV (RBC) [Entitic vol] 90.6 fL 81-99 [facility] Mean corpuscular hemoglobin (MCH) determinationOrdered By: Balbirsherry Griderbonimelanie on 01-07-2025 MCH (RBC) [Entitic mass] 29.5 pg 27.0-32.0 [facility] Monocyte percentageOrdered B y: Safia Ruelas on 01-07-2025 Monocytes/100 WBC (Bld) 7.9 % 0-10 [facility] Neutrophil percentageOrdered By: Safia Ruelas on 01-07-2025 Neutrophils/100 WBC (Bld) 52.6 % 47-70 [facility] Platelet countOrdered By: Balbir randallskye Ruelas on 01-07-2025 Platelets (Bld) [#/Vol] 263 10*3/uL 150-450 [facility] Potassium measurement (mass/ volume)Ordered By: Safia Ruelas on 01-07-2025 Potassium (Unsp spec) [Mass/Vol] 3.5 mmol/L 3.3-5.1 [facility] RBC Auto (Bld) [#/Vol]Ordere d By: Leonidesdesireeskye Ruelas on 01-07-2025 RBC (Bld) [#/Vol] 4.04 10*6/uL Low 4.2-5.4 [facility] Serum creatinine measurement (mass/volume)Ordered By: Safia Ruelas on 01-07-2025 Creatinine [Mass/Vol] 0.71 mg/dL 0.70-1.20 [facility] Serum glucose measurement (m ass/volume)Ordered By: Safia Ruelas on 01-07-2025 Glucose [Mass/Vol] 139 mg/dL High 70-99 [facility] Serum or plasma calcium dayna urement (mass/volume)Ordered By: Safia Ruelas on 01-07-2025 Calcium [Mass/Vol] 8.5 mg/dL 7.6-11.0 [facility] Serum or plasma urea nitroge n measurement (mass/volume)Ordered By: Safia Ruelas on 01-07-2025 Urea nitrogen [Mass/Vol] 11 mg/dL - [facility] Sodium levelOrdered By: Leonides Ruelas on 01-07-2025 Sodium [Moles/Vol] 139 mmol/L 133-145 [facility] White blood cell (WBC) count Ordered By: Safia Ruelas on 01-07-2025 WBC (Bld) [#/Vol] 8.0 10*3/uL 4.4-11.0 [facility] Absolute lymphocyte countOrd ered By: Balbirjean mariejosé antonio Cheoquyen on 12-31-2024 Lymphocytes Auto (Unsp spec) [#/Vol] 2.27 10*3/uL 0.83-4.51 [facility] Anion gap in Serum or Plasma Ordered By: Balbirjean mariejosé antonio hCeobonimelanie on 12-31-2024 Anion gap [Moles/Vol] 14 mmol/L 5-15 [facility] Automated lymphocyte count a s percentage of total leukocytesOrdered By: Safia Cheoquyen on 12-31-2024 Lymphocytes/100 WBC Auto (Unsp spec) 32.9 % 19- [facility] BUN/creatinine ratioOrdered By: Balbirjean mariejosé antonio Cheoquyen on 12-31-2024 Urea nitrogen/Creatinine [Mass ratio] 15.0 mg/mg 10-20 [facility] Basophil percentageOrdered B y: Safia Ruelas on 12-31-2024 Basophils/100 WBC (Bld) 0.6 % 0-1 [facility] Carbon dioxide, total [Moles /volume] in Central venous bloodOrdered By: Balbirjean mariejosé antonio Cheobonimelanie on 12-31-2024 CO2 [Moles/Vol] 22.1 mmol/L 21.0-32.0 [facility] Chloride assayOrdered By: Balbir sherry Cheobonimelanie on 12-31-2024 Chloride [Moles/Vol] 103 mmol/L 98-108 [facility] Eosinophil percentageOrdered By: Safia Cheobonimelanie on 12-31-2024 Eosinophils/100 WBC (Bld) 3.2 % 0-5 [facility] Erythrocyte distribution wid th ratioOrdered By: Balbirjean mariejosé antonio Cheobonimelanie on 12-31-2024 Erythrocyte distribution width (RBC) [Ratio] 14.6 % 11.6-14.6 [facility] Erythrocyte distribution wid th standard deviationOrdered By: Safia Ruelas on 12-31-2024 Erythrocyte distribution width (RBC) [Ratio] 48.9 fl High 35.1-43.9 [facility] Glomerular filtration rate ( GFR) estimation/1.73 sq m using serum, plasma, or whole bOrdered By: Safia Ruelas on 12-31-2024 GFR/1.73 sq M.predicted among non-blacks MDRD (S/P/Bld) [Vol rate/Area] 88 mL/min/{1.73_m2} >60 [facility] Hematocrit Auto (Bld) [Volum e fraction]Ordered By: Safia Ruelas on 12-31-2024 Hematocrit (Bld) [Volume fraction] 36.8 % Low 37-47 [facility] Hemoglobin A1c percentageOrd ered By: Leonidesgrassflatskye Ruelas on 12-31-2024 HbA1c (Bld) [Mass fraction] 6.5 % High <5.7 [facility] Hemoglobin measurementOrdere d By: Safia Ruelas on 12-31-2024 Hemoglobin (Bld) [Mass/Vol] 11.8 g/dL Low 12.0-15.0 [facility] Immature granulocytes/100 WB C Auto (Bld)Ordered By: Safia Ruelas on 12-31-2024 Immature granulocytes/100 WBC (Bld) 0.300 % 0.0-0.9 [facility] MCV (mean corpuscular volume ) determinationOrdered By: Safia Ruelas on 12-31-2024 MCV (RBC) [Entitic vol] 91.3 fL 81-99 [facility] Mean corpuscular hemoglobin (MCH) determinationOrdered By: Safia Ruelas on 12-31-2024 MCH (RBC) [Entitic mass] 29.3 pg 27.0-32.0 [facility] Monocyte percentageOrdered B y: Safia Ruelas on 12-31-2024 Monocytes/100 WBC (Bld) 9.4 % 0-10 [facility] Neutrophil percentageOrdered By: Safia Ruelas on 12-31-2024 Neutrophils/100 WBC (Bld) 53.6 % 47-70 [facility] Platelet countOrdered By: Balbir Ruelas on 12-31-2024 Platelets (Bld) [#/Vol] 232 10*3/uL 150-450 [facility] Potassium measurement (mass/ volume)Ordered By: Safia Cheoquyen on 12-31-2024 Potassium (Unsp spec) [Mass/Vol] 3.5 mmol/L 3.3-5.1 [facility] RBC Auto (Bld) [#/Vol]Ordere d By: Safia Ruelas on 12-31-2024 RBC (Bld) [#/Vol] 4.03 10*6/uL Low 4.2-5.4 [facility] Serum creatinine measurement (mass/volume)Ordered By: Safia Cheoquyen on 12-31-2024 Creatinine [Mass/Vol] 0.70 mg/dL 0.70-1.20 [facility] Serum glucose measurement (m ass/volume)Ordered By: Safia Cheoquyen on 12-31-2024 Glucose [Mass/Vol] 142 mg/dL High 70-99 [facility] Serum or plasma calcium dayna urement (mass/volume)Ordered By: Safia Cheoquyen on 12-31-2024 Calcium [Mass/Vol] 8.4 mg/dL 7.6-11.0 [facility] Serum or plasma urea nitroge n measurement (mass/volume)Ordered By: Balbirjean mariejosé antonio Cheoquyen on 12-31-2024 Urea nitrogen [Mass/Vol] 10 mg/dL 4-19 [facility] Sodium levelOrdered By: Leonides Ruelas on 12-31-2024 Sodium [Moles/Vol] 139 mmol/L 133-145 [facility] White blood cell (WBC) count Ordered By: Balbirjean mariejosé antonio Cheobonimelanie on 12-31-2024 WBC (Bld) [#/Vol] 6.9 10*3/uL 4.4-11.0 [facility] Absolute lymphocyte countOrd ered By: Safia Cheobonimelanie on 12-24-2024 Lymphocytes Auto (Unsp spec) [#/Vol] 2.54 10*3/uL 0.83-4.51 [facility] Anion gap in Serum or Plasma Ordered By: Safia Ruelas on 12-24-2024 Anion gap [Moles/Vol] 14 mmol/L 5-15 [facility] Automated lymphocyte count a s percentage of total leukocytesOrdered By: Safia Ruelas on 12-24-2024 Lymphocytes/100 WBC Auto (Unsp spec) 28.0 % 19-41 [facility] BUN/creatinine ratioOrdered By: Efsherry Westone on 12-24-2024 Urea nitrogen/Creatinine [Mass ratio] 18.4 mg/mg 10-20 [facility] Basophil percentageOrdered B y: Safia Ruelas on 12-24-2024 Basophils/100 WBC (Bld) 0.8 % 0-1 [facility] Carbon dioxide, total [Moles /volume] in Central venous bloodOrdered By: Safia Ruelas on 12-24-2024 CO2 [Moles/Vol] 22.1 mmol/L 21.0-32.0 [facility] Chloride assayOrdered By: Balbir Ruelas on 12-24-2024 Chloride [Moles/Vol] 101 mmol/L 98-108 [facility] Eosinophil percentageOrdered By: Safia Ruelas on 12-24-2024 Eosinophils/100 WBC (Bld) 2.6 % 0-5 [facility] Erythrocyte distribution wid th ratioOrdered By: Safia Ruelas on 12-24-2024 Erythrocyte distribution width (RBC) [Ratio] 14.4 % 11.6-14.6 [facility] Erythrocyte distribution wid th standard deviationOrdered By: Safia Ruelas on 12-24-2024 Erythrocyte distribution width (RBC) [Ratio] 48.8 fl High 35.1-43.9 [facility] Glomerular filtration rate ( GFR) estimation/1.73 sq m using serum, plasma, or whole bOrdered By: Safia Ruelas on 12-24-2024 GFR/1.73 sq M.predicted among non-blacks MDRD (S/P/Bld) [Vol rate/Area] 83 mL/min/{1.73_m2} >60 [facility] Hematocrit Auto (Bld) [Volum e fraction]Ordered By: Balbirjean mariejosé antonio Cheobonimelanie on 12-24-2024 Hematocrit (Bld) [Volume fraction] 37.9 % 37-47 [facility] Hemoglobin measurementOrdere d By: Safia Cheoquyen on 12-24-2024 Hemoglobin (Bld) [Mass/Vol] 12.2 g/dL 12.0-15.0 [facility] Immature granulocytes/100 WB C Auto (Bld)Ordered By: Balbirjean mariedseireeskye Griderbonimelanie on 12-24-2024 Immature granulocytes/100 WBC (Bld) 0.400 % 0.0-0.9 [facility] MCV (mean corpuscular volume ) determinationOrdered By: Balbirjean mariedesireeskye Griderbonimelanie on 12-24-2024 MCV (RBC) [Entitic vol] 92.2 fL 81-99 [facility] Mean corpuscular hemoglobin (MCH) determinationOrdered By: Balbirjean mariedesireeskye Griderbonimelanie on 12-24-2024 MCH (RBC) [Entitic mass] 29.7 pg 27.0-32.0 [facility] Monocyte percentageOrdered B y: Safia Cheoquyen on 12-24-2024 Monocytes/100 WBC (Bld) 8.7 % 0-10 [facility] Neutrophil percentageOrdered By: sherry Cheoquyen on 12-24-2024 Neutrophils/100 WBC (Bld) 59.5 % 47-70 [facility] Platelet countOrdered By: Balbir powell Cheoquyen on 12-24-2024 Platelets (Bld) [#/Vol] 256 10*3/uL 150-450 [facility] Potassium measurement (mass/ volume)Ordered By: Safia Cheobonimelanie on 12-24-2024 Potassium (Unsp spec) [Mass/Vol] 3.4 mmol/L 3.3-5.1 [facility] RBC Auto (Bld) [#/Vol]Ordere d By: Safia Cheobonimelanie on 12-24-2024 RBC (Bld) [#/Vol] 4.11 10*6/uL Low 4.2-5.4 [facility] Serum creatinine measurement (mass/volume)Ordered By: Safia Ruelas on 12-24-2024 Creatinine [Mass/Vol] 0.73 mg/dL 0.70-1.20 [facility] Serum glucose measurement (m ass/volume)Ordered By: Safia Ruelas on 12-24-2024 Glucose [Mass/Vol] 142 mg/dL High 70-99 [facility] Serum or plasma calcium dayna urement (mass/volume)Ordered By: Safia Ruelas on 12-24-2024 Calcium [Mass/Vol] 9.1 mg/dL 7.6-11.0 [facility] Serum or plasma urea nitroge n measurement (mass/volume)Ordered By: Safia Ruelas on 12-24-2024 Urea nitrogen [Mass/Vol] 13 mg/dL 4-19 [facility] Sodium levelOrdered By: Leonides jiméneztadmelanie Ruelas on 12-24-2024 Sodium [Moles/Vol] 137 mmol/L 133-145 [facility] White blood cell (WBC) count Ordered By: Safia Ruelas on 12-24-2024 WBC (Bld) [#/Vol] 9.1 10*3/uL 4.4-11.0 [facility] Absolute lymphocyte countOrd ered By: Safia Ruelas on 12-17-2024 Lymphocytes Auto (Unsp spec) [#/Vol] 2.94 10*3/uL 0.83-4.51 [facility] Anion gap in Serum or Plasma Ordered By: Safia Ruelas on 12-17-2024 Anion gap [Moles/Vol] 15 mmol/L 5-15 [facility] Automated lymphocyte count a s percentage of total leukocytesOrdered By: Safia Ruelas on 12-17-2024 Lymphocytes/100 WBC Auto (Unsp spec) 30.5 % - [facility] BUN/creatinine ratioOrdered By: Safia Ruelas on 12-17-2024 Urea nitrogen/Creatinine [Mass ratio] 23.4 mg/mg High 10-20 [facility] Basophil percentageOrdered B y: Safia Ruelas on 12-17-2024 Basophils/100 WBC (Bld) 0.7 % 0-1 [facility] Carbon dioxide, total [Moles /volume] in Central venous bloodOrdered By: Safia Ruelas on 12-17-2024 CO2 [Moles/Vol] 22.1 mmol/L 21.0-32.0 [facility] Chloride assayOrdered By: Balbir Ruelas on 12-17-2024 Chloride [Moles/Vol] 102 mmol/L 98-108 [facility] Eosinophil percentageOrdered By: Safia Ruelas on 12-17-2024 Eosinophils/100 WBC (Bld) 2.3 % 0-5 [facility] Erythrocyte distribution wid th ratioOrdered By: Safia Ruelas on 12-17-2024 Erythrocyte distribution width (RBC) [Ratio] 14.1 % 11.6-14.6 [facility] Erythrocyte distribution wid th standard deviationOrdered By: Safia Ruelas on 12-17-2024 Erythrocyte distribution width (RBC) [Ratio] 47.3 fl High 35.1-43.9 [facility] Glomerular filtration rate ( GFR) estimation/1.73 sq m using serum, plasma, or whole bOrdered By: Safia Ruelas on 12-17-2024 GFR/1.73 sq M.predicted among non-blacks MDRD (S/P/Bld) [Vol rate/Area] 77 mL/min/{1.73_m2} >60 [facility] Hematocrit Auto (Bld) [Volum e fraction]Ordered By: Safia Ruelas on 12-17-2024 Hematocrit (Bld) [Volume fraction] 40.2 % 37-47 [facility] Hemoglobin measurementOrdere d By: Safia Ruelas on 12-17-2024 Hemoglobin (Bld) [Mass/Vol] 12.7 g/dL 12.0-15.0 [facility] Immature granulocytes/100 WB C Auto (Bld)Ordered By: Safia Ruelas on 12-17-2024 Immature granulocytes/100 WBC (Bld) 0.400 % 0.0-0.9 [facility] MCV (mean corpuscular volume ) determinationOrdered By: Safia Ruelas on 12-17-2024 MCV (RBC) [Entitic vol] 92.2 fL 81-99 [facility] Mean corpuscular hemoglobin (MCH) determinationOrdered By: Safia Ruelas on 12-17-2024 MCH (RBC) [Entitic mass] 29.1 pg 27.0-32.0 [facility] Monocyte percentageOrdered B y: Safia Ruelas on 12-17-2024 Monocytes/100 WBC (Bld) 8.6 % 0-10 [facility] Neutrophil percentageOrdered By: Safia Ruelas on 12-17-2024 Neutrophils/100 WBC (Bld) 57.5 % 47-70 [facility] Platelet countOrdered By: Balbir randallskye Ruelas on 12-17-2024 Platelets (Bld) [#/Vol] 287 10*3/uL 150-450 [facility] Potassium measurement (mass/ volume)Ordered By: Safia Ruelas on 12-17-2024 Potassium (Unsp spec) [Mass/Vol] 3.5 mmol/L 3.3-5.1 [facility] RBC Auto (Bld) [#/Vol]Ordere d By: Safia Ruelas on 12-17-2024 RBC (Bld) [#/Vol] 4.36 10*6/uL 4.2-5.4 [facility] Serum creatinine measurement (mass/volume)Ordered By: Safia Ruelas on 12-17-2024 Creatinine [Mass/Vol] 0.78 mg/dL 0.70-1.20 [facility] Serum glucose measurement (m ass/volume)Ordered By: Safia Ruelas on 12-17-2024 Glucose [Mass/Vol] 125 mg/dL High 70-99 [facility] Serum or plasma calcium dayna urement (mass/volume)Ordered By: Safia Ruelas on 12-17-2024 Calcium [Mass/Vol] 9.2 mg/dL 7.6-11.0 [facility] Serum or plasma urea nitroge n measurement (mass/volume)Ordered By: Safia Ruelas on 12-17-2024 Urea nitrogen [Mass/Vol] 18 mg/dL 4-19 [facility] Sodium levelOrdered By: Leonides Ruelas on 12-17-2024 Sodium [Moles/Vol] 139 mmol/L 133-145 [facility] White blood cell (WBC) count Ordered By: Safia Ruelas on 12-17-2024 WBC (Bld) [#/Vol] 9.6 10*3/uL 4.4-11.0 [facility] Absolute lymphocyte countOrd ered By: Balbirjean mariejosé antonio Ruelas on 12-10-2024 Lymphocytes Auto (Unsp spec) [#/Vol] 2.59 10*3/uL 0.83-4.51 [facility] Anion gap in Serum or Plasma Ordered By: Balbirjean mariejosé antonio Cheoquyen on 12-10-2024 Anion gap [Moles/Vol] 15 mmol/L 5-15 [facility] Automated lymphocyte count a s percentage of total leukocytesOrdered By: Balbirjean mariejosé antonio Cheoquyen on 12-10-2024 Lymphocytes/100 WBC Auto (Unsp spec) 30.2 % 19-41 [facility] BUN/creatinine ratioOrdered By: Balbirjean mariejosé antonio Cheoquyen on 12-10-2024 Urea nitrogen/Creatinine [Mass ratio] 25.6 mg/mg High 10-20 [facility] Basophil percentageOrdered B y: Safia Ruelas on 12-10-2024 Basophils/100 WBC (Bld) 0.9 % 0-1 [facility] Carbon dioxide, total [Moles /volume] in Central venous bloodOrdered By: Balbirjean mariejosé antonio Cheobonimelanie on 12-10-2024 CO2 [Moles/Vol] 21.7 mmol/L 21.0-32.0 [facility] Chloride assayOrdered By: Balbir sherry Cheobonimelanie on 12-10-2024 Chloride [Moles/Vol] 101 mmol/L 98-108 [facility] Eosinophil percentageOrdered By: Safia Cheobonimelanie on 12-10-2024 Eosinophils/100 WBC (Bld) 1.9 % 0-5 [facility] Erythrocyte distribution wid th ratioOrdered By: Balbirjean mariejosé antonio Cheobonimelanie on 12-10-2024 Erythrocyte distribution width (RBC) [Ratio] 13.7 % 11.6-14.6 [facility] Erythrocyte distribution wid th standard deviationOrdered By: Safia Ruelas on 12-10-2024 Erythrocyte distribution width (RBC) [Ratio] 46.8 fl High 35.1-43.9 [facility] Glomerular filtration rate ( GFR) estimation/1.73 sq m using serum, plasma, or whole bOrdered By: Safia Ruelas on 12-10-2024 GFR/1.73 sq M.predicted among non-blacks MDRD (S/P/Bld) [Vol rate/Area] 72 mL/min/{1.73_m2} >60 [facility] Hematocrit Auto (Bld) [Volum e fraction]Ordered By: Safia Ruelas on 12-10-2024 Hematocrit (Bld) [Volume fraction] 38.8 % 37-47 [facility] Hemoglobin measurementOrdere d By: Safia Ruelas on 12-10-2024 Hemoglobin (Bld) [Mass/Vol] 12.3 g/dL 12.0-15.0 [facility] Immature granulocytes/100 WB C Auto (Bld)Ordered By: Safia Ruelas on 12-10-2024 Immature granulocytes/100 WBC (Bld) 0.500 % 0.0-0.9 [facility] MCV (mean corpuscular volume ) determinationOrdered By: Safia Ruelas on 12-10-2024 MCV (RBC) [Entitic vol] 93.3 fL 81-99 [facility] Mean corpuscular hemoglobin (MCH) determinationOrdered By: Safia Ruelas on 12-10-2024 MCH (RBC) [Entitic mass] 29.6 pg 27.0-32.0 [facility] Monocyte percentageOrdered B y: Safia Ruelas on 12-10-2024 Monocytes/100 WBC (Bld) 8.2 % 0-10 [facility] Neutrophil percentageOrdered By: Safia Ruelas on 12-10-2024 Neutrophils/100 WBC (Bld) 58.3 % 47-70 [facility] Platelet countOrdered By: Balbir Ruelas on 12-10-2024 Platelets (Bld) [#/Vol] 247 10*3/uL 150-450 [facility] Potassium measurement (mass/ volume)Ordered By: Safia Ruelas on 12-10-2024 Potassium (Unsp spec) [Mass/Vol] 3.8 mmol/L 3.3-5.1 [facility] RBC Auto (Bld) [#/Vol]Ordere d By: Safia Ruelas on 12-10-2024 RBC (Bld) [#/Vol] 4.16 10*6/uL Low 4.2-5.4 [facility] Serum creatinine measurement (mass/volume)Ordered By: Safia Ruelas on 12-10-2024 Creatinine [Mass/Vol] 0.82 mg/dL 0.70-1.20 [facility] Serum glucose measurement (m ass/volume)Ordered By: Safia Ruelas on 12-10-2024 Glucose [Mass/Vol] 149 mg/dL High 70-99 [facility] Serum or plasma calcium dayna urement (mass/volume)Ordered By: Safia Ruelas on 12-10-2024 Calcium [Mass/Vol] 9.1 mg/dL 7.6-11.0 [facility] Serum or plasma urea nitroge n measurement (mass/volume)Ordered By: Safia Ruelas on 12-10-2024 Urea nitrogen [Mass/Vol] 21 mg/dL High 4-19 [facility] Sodium levelOrdered By: Leonides lazaromelanie Jessenia on 12-10-2024 Sodium [Moles/Vol] 137 mmol/L 133-145 [facility] White blood cell (WBC) count Ordered By: Safia Ruelas on 12-10-2024 WBC (Bld) [#/Vol] 8.6 10*3/uL 4.4-11.0 [facility] Absolute lymphocyte countOrd ered By: Safia Ruelas on 12-03-2024 Lymphocytes Auto (Unsp spec) [#/Vol] 2.81 10*3/uL 0.83-4.51 [facility] Anion gap in Serum or Plasma Ordered By: Safia Ruelas on 12-03-2024 Anion gap [Moles/Vol] 14 mmol/L 5-15 [facility] Automated lymphocyte count a s percentage of total leukocytesOrdered By: Safia Ruelas on 12-03-2024 Lymphocytes/100 WBC Auto (Unsp spec) 28.3 % 19-41 [facility] BUN/creatinine ratioOrdered By: Safia Ruelas on 12-03-2024 Urea nitrogen/Creatinine [Mass ratio] 28.4 mg/mg High 10-20 [facility] Basophil percentageOrdered B y: Safia Ruelas on 12-03-2024 Basophils/100 WBC (Bld) 0.6 % 0-1 [facility] Carbon dioxide, total [Moles /volume] in Central venous bloodOrdered By: Safia Ruelas on 12-03-2024 CO2 [Moles/Vol] 23.3 mmol/L 21.0-32.0 [facility] Chloride assayOrdered By: Balbir Ruelas on 12-03-2024 Chloride [Moles/Vol] 102 mmol/L 98-108 [facility] Eosinophil percentageOrdered By: Safia Ruelas on 12-03-2024 Eosinophils/100 WBC (Bld) 1.5 % 0-5 [facility] Erythrocyte distribution wid th ratioOrdered By: Safia Ruelas on 12-03-2024 Erythrocyte distribution width (RBC) [Ratio] 14.1 % 11.6-14.6 [facility] Erythrocyte distribution wid th standard deviationOrdered By: Safia Ruelas on 12-03-2024 Erythrocyte distribution width (RBC) [Ratio] 47.9 fl High 35.1-43.9 [facility] Glomerular filtration rate ( GFR) estimation/1.73 sq m using serum, plasma, or whole bOrdered By: Safia Ruelas on 12-03-2024 GFR/1.73 sq M.predicted among non-blacks MDRD (S/P/Bld) [Vol rate/Area] 65 mL/min/{1.73_m2} >60 [facility] Hematocrit Auto (Bld) [Volum e fraction]Ordered By: Safia Ruelas on 12-03-2024 Hematocrit (Bld) [Volume fraction] 40.0 % 37-47 [facility] Hemoglobin measurementOrdere d By: Safia Ruelas on 12-03-2024 Hemoglobin (Bld) [Mass/Vol] 12.9 g/dL 12.0-15.0 [facility] Immature granulocytes/100 WB C Auto (Bld)Ordered By: Balbirjean mariejosé antonio Cheobonimelanie on 12-03-2024 Immature granulocytes/100 WBC (Bld) 0.300 % 0.0-0.9 [facility] MCV (mean corpuscular volume ) determinationOrdered By: Balbirjean mariedesireeskye Griderbonimelanie on 12-03-2024 MCV (RBC) [Entitic vol] 91.3 fL 81-99 [facility] Mean corpuscular hemoglobin (MCH) determinationOrdered By: Balbirsherry Griderbonimelanie on 12-03-2024 MCH (RBC) [Entitic mass] 29.5 pg 27.0-32.0 [facility] Monocyte percentageOrdered B y: Safia Cheoquyen on 12-03-2024 Monocytes/100 WBC (Bld) 9.6 % 0-10 [facility] Neutrophil percentageOrdered By: jean mariegrassflatskye Ruelas on 12-03-2024 Neutrophils/100 WBC (Bld) 59.7 % 47-70 [facility] Platelet countOrdered By: Balbir Ruelas on 12-03-2024 Platelets (Bld) [#/Vol] 280 10*3/uL 150-450 [facility] Potassium measurement (mass/ volume)Ordered By: Balbirjean mariedesireeskye Griderbonimelanie on 12-03-2024 Potassium (Unsp spec) [Mass/Vol] 4.0 mmol/L 3.3-5.1 [facility] RBC Auto (Bld) [#/Vol]Ordere d By: Safia Ruelas on 12-03-2024 RBC (Bld) [#/Vol] 4.38 10*6/uL 4.2-5.4 [facility] Serum creatinine measurement (mass/volume)Ordered By: Balbirsherry Griderbonimelanie on 12-03-2024 Creatinine [Mass/Vol] 0.89 mg/dL 0.70-1.20 [facility] Serum glucose measurement (m ass/volume)Ordered By: Safia Ruelas on 12-03-2024 Glucose [Mass/Vol] 77 mg/dL 70-99 [facility] Serum or plasma calcium dayna urement (mass/volume)Ordered By: Safia Ruelas on 12-03-2024 Calcium [Mass/Vol] 9.6 mg/dL 7.6-11.0 [facility] Serum or plasma urea nitroge n measurement (mass/volume)Ordered By: Saifa Ruelas on 12-03-2024 Urea nitrogen [Mass/Vol] 25 mg/dL High 4-19 [facility] Sodium levelOrdered By: Leonides jiménezradha Jessenia on 12-03-2024 Sodium [Moles/Vol] 139 mmol/L 133-145 [facility] TSH DL <= 0.005 mIU/L QnOrde red By: Safia Ruelas on 12-03-2024 TSH Qn 3.500 uIU/mL 0.300-4.200 [facility] White blood cell (WBC) count Ordered By: Safia Ruelas on 12-03-2024 WBC (Bld) [#/Vol] 9.9 10*3/uL 4.4-11.0 [facility] Absolute lymphocyte countOrd ered By: Safia Ruelas on 11-26-2024 Lymphocytes Auto (Unsp spec) [#/Vol] 2.99 10*3/uL 0.83-4.51 [facility] Absolute neutrophil countOrd ered By: Safia Ruelas on 11-26-2024 Neutrophils (Bld) [#/Vol] 4.2 10*3/uL 2.0-7.7 [facility] Anion gap in Serum or Plasma Ordered By: Safia Ruelas on 11-26-2024 Anion gap [Moles/Vol] 13 mmol/L - [facility] Automated lymphocyte count a s percentage of total leukocytesOrdered By: Safia Ruelas on 11-26-2024 Lymphocytes/100 WBC Auto (Unsp spec) 37.1 % 19-41 [facility] BUN/creatinine ratioOrdered By: Safia Westonmelanie on 11-26-2024 Urea nitrogen/Creatinine [Mass ratio] 24.3 mg/mg High 10-20 [facility] Basophil percentageOrdered B y: Safia Ruelas on 11-26-2024 Basophils/100 WBC (Bld) 0.7 % 0-1 [facility] Carbon dioxide, total [Moles /volume] in Central venous bloodOrdered By: Safia Cheobonimelanie on 11-26-2024 CO2 [Moles/Vol] 27.1 mmol/L 21.0-32.0 [facility] Chloride assayOrdered By: Balbir sherry Cheobonimelanie on 11-26-2024 Chloride [Moles/Vol] 101 mmol/L 98-108 [facility] Eosinophil percentageOrdered By: Safia Cheoquyen on 11-26-2024 Eosinophils/100 WBC (Bld) 1.9 % 0-5 [facility] Erythrocyte distribution wid th ratioOrdered By: Safia Cheobonimelanie on 11-26-2024 Erythrocyte distribution width (RBC) [Ratio] 14.2 % 11.6-14.6 [facility] Erythrocyte distribution wid th standard deviationOrdered By: Safia Ruelas on 11-26-2024 Erythrocyte distribution width (RBC) [Ratio] 48.0 fl High 35.1-43.9 [facility] Glomerular filtration rate ( GFR) estimation/1.73 sq m using serum, plasma, or whole bOrdered By: Safia Cheobonimelanie on 11-26-2024 GFR/1.73 sq M.predicted among non-blacks MDRD (S/P/Bld) [Vol rate/Area] 63 mL/min/{1.73_m2} >60 [facility] Comment on above: mL/min/1.73m2 CKD-EP I Creatinine Equation (2020) Hematocrit Auto (Bld) [Volum e fraction]Ordered By: Safia Ruelas on 11-26-2024 Hematocrit (Bld) [Volume fraction] 42.7 % 37-47 [facility] Hemoglobin measurementOrdere d By: Leonidesdesireeskye Griderbonimelanie on 11-26-2024 Hemoglobin (Bld) [Mass/Vol] 13.6 g/dL 12.0-15.0 [facility] Immature granulocytes/100 WB C Auto (Bld)Ordered By: Safia Ruelas on 11-26-2024 Immature granulocytes/100 WBC (Bld) 0.500 % 0.0-0.9 [facility] Comment on above: IG% - Immature Granu locytes (promyelocytes, myelocytes and metamyelocytes) > 1% indicates that a LEFT SHIFT is Present. MCV (mean corpuscular volume ) determinationOrdered By: Safia Ruelas on 11-26-2024 MCV (RBC) [Entitic vol] 92.0 fL 81-99 [facility] Mean corpuscular hemoglobin (MCH) determinationOrdered By: Safia Ruelas on 11-26-2024 MCH (RBC) [Entitic mass] 29.3 pg 27.0-32.0 [facility] Mean corpuscular hemoglobin concentration (MCHC) determinationOrdered By: Safia Ruelas on 11-26-2024 MCHC (RBC) [Mass/Vol] 31.9 g/dL Low 32-36 [facility] Mean platelet volume determi nationOrdered By: Safia Ruelas on 11-26-2024 Platelet mean volume (Bld) [Entitic vol] 11.5 fL 6.2-12.0 [facility] Monocyte percentageOrdered B y: Safia Ruelas on 11-26-2024 Monocytes/100 WBC (Bld) 7.7 % 0-10 [facility] Neutrophil percentageOrdered By: Safia Ruelas on 11-26-2024 Neutrophils/100 WBC (Bld) 52.1 % 47-70 [facility] Nucleated red blood cell per centageOrdered By: Safia Ruelas 11-26-2024 Nucleated RBC/100 WBC (Bld) [Ratio] 0 % 0-5 [facility] Platelet countOrdered By: Balbir Ruelas on 11-26-2024 Platelets (Bld) [#/Vol] 283 10*3/uL 150-450 [facility] Potassium measurement (mass/ volume)Ordered By: Safia Ruelas on 11-26-2024 Potassium (Unsp spec) [Mass/Vol] 3.8 mmol/L 3.3-5.1 [facility] RBC Auto (Bld) [#/Vol]Ordere d By: Safia Ruelas on 11-26-2024 RBC (Bld) [#/Vol] 4.64 10*6/uL 4.2-5.4 [facility] Serum creatinine measurement (mass/volume)Ordered By: Balbirjean mariedesireeskye Griderbonimelanie on 11-26-2024 Creatinine [Mass/Vol] 0.92 mg/dL 0.70-1.20 [facility] Serum glucose measurement (m ass/volume)Ordered By: Balbirjean mariedesireeskye Griderbonimelanie on 11-26-2024 Glucose [Mass/Vol] 97 mg/dL 70-99 [facility] Serum or plasma calcium dayna urement (mass/volume)Ordered By: Balbirjean mariedesireeskye Griderbonimelanie on 11-26-2024 Calcium [Mass/Vol] 10.0 mg/dL 7.6-11.0 [facility] Serum or plasma urea nitroge n measurement (mass/volume)Ordered By: Balbirjean mariejosé antonio Cheoquyen on 11-26-2024 Urea nitrogen [Mass/Vol] 22 mg/dL High 4-19 [facility] Sodium levelOrdered By: Leonides Ruelas on 11-26-2024 Sodium [Moles/Vol] 140 mmol/L 133-145 [facility] White blood cell (WBC) count Ordered By: Balbirjean mariedesireeskye Griderbonimelanie on 11-26-2024 WBC (Bld) [#/Vol] 8.1 10*3/uL 4.4-11.0 [facility] Clostridium difficile detect ion by polymerase chain reactionOrdered By: Balbirjean mariedesireeskye Griderbonimelanie on 11-25-2024 C. difficile DNA CHUCKY+probe Ql (Unsp spec) [facility] Absolute lymphocyte countOrd ered By: Bandarskye Griderbonimelanie on 11-19-2024 Lymphocytes Auto (Unsp spec) [#/Vol] 2.71 10*3/uL 0.83-4.51 [facility] Absolute neutrophil countOrd ered By: Bandarskye Griderbonimelanie on 11-19-2024 Neutrophils (Bld) [#/Vol] 5.2 10*3/uL 2.0-7.7 [facility] Anion gap in Serum or Plasma Ordered By: Safia Ruelas on 11-19-2024 Anion gap [Moles/Vol] 12 mmol/L 5-15 [facility] Automated lymphocyte count a s percentage of total leukocytesOrdered By: Safia Ruelas on 11-19-2024 Lymphocytes/100 WBC Auto (Unsp spec) 30.4 % 19-41 [facility] BUN/creatinine ratioOrdered By: Safia Ruelas on 11-19-2024 Urea nitrogen/Creatinine [Mass ratio] 25.0 mg/mg High 10-20 [facility] Basophil percentageOrdered B y: Safia Ruelas on 11-19-2024 Basophils/100 WBC (Bld) 0.6 % 0-1 [facility] Carbon dioxide, total [Moles /volume] in Central venous bloodOrdered By: Safia Ruelas on 11-19-2024 CO2 [Moles/Vol] 25.5 mmol/L 21.0-32.0 [facility] Chloride assayOrdered By: Balbir Ruelas on 11-19-2024 Chloride [Moles/Vol] 101 mmol/L 98-108 [facility] Eosinophil percentageOrdered By: Safia Ruelas on 11-19-2024 Eosinophils/100 WBC (Bld) 2.1 % 0-5 [facility] Erythrocyte distribution wid th ratioOrdered By: Safia Ruelas on 11-19-2024 Erythrocyte distribution width (RBC) [Ratio] 13.9 % 11.6-14.6 [facility] Erythrocyte distribution wid th standard deviationOrdered By: sherry Ruelas on 11-19-2024 Erythrocyte distribution width (RBC) [Ratio] 46.6 fl High 35.1-43.9 [facility] Glomerular filtration rate ( GFR) estimation/1.73 sq m using serum, plasma, or whole bOrdered By: Safia Ruelas on 11-19-2024 GFR/1.73 sq M.predicted among non-blacks MDRD (S/P/Bld) [Vol rate/Area] 66 mL/min/{1.73_m2} >60 [facility] Comment on above: mL/min/1.73m2 CKD-EP I Creatinine Equation (2020) Hematocrit Auto (Bld) [Volum e fraction]Ordered By: Safia Ruelas on 11-19-2024 Hematocrit (Bld) [Volume fraction] 39.2 % 37-47 [facility] Hemoglobin measurementOrdere d By: Safia Ruelas on 11-19-2024 Hemoglobin (Bld) [Mass/Vol] 12.7 g/dL 12.0-15.0 [facility] Immature granulocytes/100 WB C Auto (Bld)Ordered By: jean mariegrassflatskye Ruelas on 11-19-2024 Immature granulocytes/100 WBC (Bld) 0.300 % 0.0-0.9 [facility] Comment on above: IG% - Immature Granu locytes (promyelocytes, myelocytes and metamyelocytes) > 1% indicates that a LEFT SHIFT is Present. MCV (mean corpuscular volume ) determinationOrdered By: Safia Ruelas on 11-19-2024 MCV (RBC) [Entitic vol] 91.4 fL 81-99 [facility] Mean corpuscular hemoglobin (MCH) determinationOrdered By: Safia Ruelas on 11-19-2024 MCH (RBC) [Entitic mass] 29.6 pg 27.0-32.0 [facility] Mean corpuscular hemoglobin concentration (MCHC) determinationOrdered By: Safia Ruelas on 11-19-2024 MCHC (RBC) [Mass/Vol] 32.4 g/dL 32-36 [facility] Mean platelet volume determi nationOrdered By: sherry Ruelas on 11-19-2024 Platelet mean volume (Bld) [Entitic vol] 11.5 fL 6.2-12.0 [facility] Monocyte percentageOrdered B y: Safia Ruelas on 11-19-2024 Monocytes/100 WBC (Bld) 7.8 % 0-10 [facility] Neutrophil percentageOrdered By: Safia Ruelas on 11-19-2024 Neutrophils/100 WBC (Bld) 58.8 % 47-70 [facility] Nucleated red blood cell per centageOrdered By: Safia Ruelas on 11-19-2024 Nucleated RBC/100 WBC (Bld) [Ratio] 0 % 0-5 [facility] Platelet countOrdered By: Balbir Ruelas on 11-19-2024 Platelets (Bld) [#/Vol] 300 10*3/uL 150-450 [facility] Potassium measurement (mass/ volume)Ordered By: Safia Ruelas on 11-19-2024 Potassium (Unsp spec) [Mass/Vol] 3.8 mmol/L 3.3-5.1 [facility] RBC Auto (Bld) [#/Vol]Ordere d By: Safia Ruelas on 11-19-2024 RBC (Bld) [#/Vol] 4.29 10*6/uL 4.2-5.4 [facility] Serum creatinine measurement (mass/volume)Ordered By: Safia Ruelas on 11-19-2024 Creatinine [Mass/Vol] 0.88 mg/dL 0.70-1.20 [facility] Serum glucose measurement (m ass/volume)Ordered By: Safia Ruelas on 11-19-2024 Glucose [Mass/Vol] 136 mg/dL High 70-99 [facility] Serum or plasma calcium dayna urement (mass/volume)Ordered By: Safia Ruelas on 11-19-2024 Calcium [Mass/Vol] 9.6 mg/dL 7.6-11.0 [facility] Serum or plasma urea nitroge n measurement (mass/volume)Ordered By: Safia Ruelas on 11-19-2024 Urea nitrogen [Mass/Vol] 22 mg/dL High 4-19 [facility] Sodium levelOrdered By: Leonides Ruelas on 11-19-2024 Sodium [Moles/Vol] 139 mmol/L 133-145 [facility] White blood cell (WBC) count Ordered By: Safia Ruelas on 11-19-2024 WBC (Bld) [#/Vol] 8.9 10*3/uL 4.4-11.0 [facility] Absolute lymphocyte countOrd ered By: Safia Ruelas on 11-12-2024 Lymphocytes Auto (Unsp spec) [#/Vol] 2.49 10*3/uL 0.83-4.51 [facility] Absolute neutrophil countOrd ered By: Safia Griderbonimelanie on 11-12-2024 Neutrophils (Bld) [#/Vol] 4.2 10*3/uL 2.0-7.7 [facility] Anion gap in Serum or Plasma Ordered By: Safia Ruelas on 11-12-2024 Anion gap [Moles/Vol] 12 mmol/L 5-15 [facility] Automated lymphocyte count a s percentage of total leukocytesOrdered By: Safia Ruelas on 11-12-2024 Lymphocytes/100 WBC Auto (Unsp spec) 31.9 % 19-41 [facility] BUN/creatinine ratioOrdered By: Safia Ruelas on 11-12-2024 Urea nitrogen/Creatinine [Mass ratio] 28.1 mg/mg High 10-20 [facility] Basophil percentageOrdered B y: Safia Ruelas on 11-12-2024 Basophils/100 WBC (Bld) 0.6 % 0-1 [facility] Carbon dioxide, total [Moles /volume] in Central venous bloodOrdered By: Safia Ruelas on 11-12-2024 CO2 [Moles/Vol] 25.1 mmol/L 21.0-32.0 [facility] Chloride assayOrdered By: Balbir Ruelas on 11-12-2024 Chloride [Moles/Vol] 102 mmol/L 98-108 [facility] Eosinophil percentageOrdered By: Safia Ruelas on 11-12-2024 Eosinophils/100 WBC (Bld) 2.8 % 0-5 [facility] Erythrocyte distribution wid th ratioOrdered By: Safia Ruelas on 11-12-2024 Erythrocyte distribution width (RBC) [Ratio] 13.8 % 11.6-14.6 [facility] Erythrocyte distribution wid th standard deviationOrdered By: Safia Ruelas on 11-12-2024 Erythrocyte distribution width (RBC) [Ratio] 46.7 fl High 35.1-43.9 [facility] Glomerular filtration rate ( GFR) estimation/1.73 sq m using serum, plasma, or whole bOrdered By: Safia Ruelas on 11-12-2024 GFR/1.73 sq M.predicted among non-blacks MDRD (S/P/Bld) [Vol rate/Area] 70 mL/min/{1.73_m2} >60 [facility] Comment on above: mL/min/1.73m2 CKD-EP I Creatinine Equation (2020) Hematocrit Auto (Bld) [Volum e fraction]Ordered By: Safia Ruelas on 11-12-2024 Hematocrit (Bld) [Volume fraction] 40.6 % 37-47 [facility] Hemoglobin measurementOrdere d By: Safia Ruelas on 11-12-2024 Hemoglobin (Bld) [Mass/Vol] 13.2 g/dL 12.0-15.0 [facility] Immature granulocytes/100 WB C Auto (Bld)Ordered By: Safia Ruelas on 11-12-2024 Immature granulocytes/100 WBC (Bld) 0.400 % 0.0-0.9 [facility] Comment on above: IG% - Immature Granu locytes (promyelocytes, myelocytes and metamyelocytes) > 1% indicates that a LEFT SHIFT is Present. MCV (mean corpuscular volume ) determinationOrdered By: Safia Ruelas on 11-12-2024 MCV (RBC) [Entitic vol] 92.1 fL 81-99 [facility] Mean corpuscular hemoglobin (MCH) determinationOrdered By: Safia Ruelas on 11-12-2024 MCH (RBC) [Entitic mass] 29.9 pg 27.0-32.0 [facility] Mean corpuscular hemoglobin concentration (MCHC) determinationOrdered By: Safia Ruelas on 11-12-2024 MCHC (RBC) [Mass/Vol] 32.5 g/dL 32-36 [facility] Mean platelet volume determi nationOrdered By: Safia Ruelas on 11-12-2024 Platelet mean volume (Bld) [Entitic vol] 11.7 fL 6.2-12.0 [facility] Monocyte percentageOrdered B y: Safia Cheoquyen on 11-12-2024 Monocytes/100 WBC (Bld) 10.0 % 0-10 [facility] Neutrophil percentageOrdered By: Balbirjean mariejosé antonio Cheobonimelanie on 11-12-2024 Neutrophils/100 WBC (Bld) 54.3 % 47-70 [facility] Nucleated red blood cell per centageOrdered By: Balbirjean mariejosé antonio Cheobonimelanie on 11-12-2024 Nucleated RBC/100 WBC (Bld) [Ratio] 0 % 0-5 [facility] Platelet countOrdered By: Balbir sherry Jessenia on 11-12-2024 Platelets (Bld) [#/Vol] 304 10*3/uL 150-450 [facility] Potassium measurement (mass/ volume)Ordered By: Safia Ruelas on 11-12-2024 Potassium (Unsp spec) [Mass/Vol] 3.9 mmol/L 3.3-5.1 [facility] RBC Auto (Bld) [#/Vol]Ordere d By: Leonidesdesireeskye Ruelas on 11-12-2024 RBC (Bld) [#/Vol] 4.41 10*6/uL 4.2-5.4 [facility] Serum creatinine measurement (mass/volume)Ordered By: Safia Ruelas on 11-12-2024 Creatinine [Mass/Vol] 0.84 mg/dL 0.70-1.20 [facility] Serum glucose measurement (m ass/volume)Ordered By: Safia Ruelas on 11-12-2024 Glucose [Mass/Vol] 112 mg/dL High 70-99 [facility] Serum or plasma calcium dayna urement (mass/volume)Ordered By: Safia Ruelas on 11-12-2024 Calcium [Mass/Vol] 9.7 mg/dL 7.6-11.0 [facility] Serum or plasma urea nitroge n measurement (mass/volume)Ordered By: Safia Ruelas on 11-12-2024 Urea nitrogen [Mass/Vol] 24 mg/dL High 4-19 [facility] Sodium levelOrdered By: Leonides josé antonio Jessenia on 11-12-2024 Sodium [Moles/Vol] 139 mmol/L 133-145 [facility] White blood cell (WBC) count Ordered By: Safia Ruelas on 11-12-2024 WBC (Bld) [#/Vol] 7.8 10*3/uL 4.4-11.0 [facility] Absolute lymphocyte countOrd ered By: Safia Ruelas on 11-05-2024 Lymphocytes Auto (Unsp spec) [#/Vol] 2.91 10*3/uL 0.83-4.51 [facility] Absolute neutrophil countOrd ered By: Safia Ruelas on 11-05-2024 Neutrophils (Bld) [#/Vol] 4.6 10*3/uL 2.0-7.7 [facility] Anion gap in Serum or Plasma Ordered By: Safia Ruelas on 11-05-2024 Anion gap [Moles/Vol] 13 mmol/L 5-15 [facility] Automated lymphocyte count a s percentage of total leukocytesOrdered By: Safia Ruelas on 11-05-2024 Lymphocytes/100 WBC Auto (Unsp spec) 33.7 % 19-41 [facility] BUN/creatinine ratioOrdered By: Safia Ruelas on 11-05-2024 Urea nitrogen/Creatinine [Mass ratio] 23.3 mg/mg High 10-20 [facility] Basophil percentageOrdered B y: Safia Ruelas on 11-05-2024 Basophils/100 WBC (Bld) 0.9 % 0-1 [facility] Carbon dioxide, total [Moles /volume] in Central venous bloodOrdered By: Safia Ruelas on 11-05-2024 CO2 [Moles/Vol] 24.2 mmol/L 21.0-32.0 [facility] Chloride assayOrdered By: Balbir Ruelas on 11-05-2024 Chloride [Moles/Vol] 102 mmol/L 98-108 [facility] Eosinophil percentageOrdered By: Safia Ruelas on 11-05-2024 Eosinophils/100 WBC (Bld) 2.7 % 0-5 [facility] Erythrocyte distribution wid th ratioOrdered By: Safia Ruelas on 11-05-2024 Erythrocyte distribution width (RBC) [Ratio] 13.9 % 11.6-14.6 [facility] Erythrocyte distribution wid th standard deviationOrdered By: Safai Ruelas on 11-05-2024 Erythrocyte distribution width (RBC) [Ratio] 47.1 fl High 35.1-43.9 [facility] Glomerular filtration rate ( GFR) estimation/1.73 sq m using serum, plasma, or whole bOrdered By: Safia Ruelas on 11-05-2024 GFR/1.73 sq M.predicted among non-blacks MDRD (S/P/Bld) [Vol rate/Area] 62 mL/min/{1.73_m2} >60 [facility] Comment on above: mL/min/1.73m2 CKD-EP I Creatinine Equation (2020) Hematocrit Auto (Bld) [Volum e fraction]Ordered By: [facility] on 11-05-2024 Hematocrit (Bld) [Volume fraction] 40.7 % 37-47 [facility] Hemoglobin measurementOrdere d By: Safia Ruelas on 11-05-2024 Hemoglobin (Bld) [Mass/Vol] 12.9 g/dL 12.0-15.0 [facility] Immature granulocytes/100 WB C Auto (Bld)Ordered By: Safia Ruelas on 11-05-2024 Immature granulocytes/100 WBC (Bld) 0.500 % 0.0-0.9 [facility] Comment on above: IG% - Immature Granu locytes (promyelocytes, myelocytes and metamyelocytes) > 1% indicates that a LEFT SHIFT is Present. MCV (mean corpuscular volume ) determinationOrdered By: Safia Ruelas on 11-05-2024 MCV (RBC) [Entitic vol] 92.9 fL 81-99 [facility] Mean corpuscular hemoglobin (MCH) determinationOrdered By: Safia Ruelas on 11-05-2024 MCH (RBC) [Entitic mass] 29.5 pg 27.0-32.0 [facility] Mean corpuscular hemoglobin concentration (MCHC) determinationOrdered By: Safia Ruelas 11-05-2024 MCHC (RBC) [Mass/Vol] 31.7 g/dL Low 32-36 [facility] Mean platelet volume determi nationOrdered By: Safia Ruelas on 11-05-2024 Platelet mean volume (Bld) [Entitic vol] 11.2 fL 6.2-12.0 [facility] Monocyte percentageOrdered B y: Safia Ruelas on 11-05-2024 Monocytes/100 WBC (Bld) 8.6 % 0-10 [facility] Neutrophil percentageOrdered By: Safia Ruelas on 11-05-2024 Neutrophils/100 WBC (Bld) 53.6 % 47-70 [facility] Nucleated red blood cell per centageOrdered By: Safia Ruelas on 11-05-2024 Nucleated RBC/100 WBC (Bld) [Ratio] 0 % 0-5 [facility] Platelet countOrdered By: Balbir Ruelas on 11-05-2024 Platelets (Bld) [#/Vol] 318 10*3/uL 150-450 [facility] Potassium measurement (mass/ volume)Ordered By: Safia Ruelas on 11-05-2024 Potassium (Unsp spec) [Mass/Vol] 4.0 mmol/L 3.3-5.1 [facility] RBC Auto (Bld) [#/Vol]Ordere d By: Safia Ruelas on 11-05-2024 RBC (Bld) [#/Vol] 4.38 10*6/uL 4.2-5.4 [facility] Serum creatinine measurement (mass/volume)Ordered By: Safia Ruelas on 11-05-2024 Creatinine [Mass/Vol] 0.93 mg/dL 0.70-1.20 [facility] Serum glucose measurement (m ass/volume)Ordered By: Safia Ruelas on 11-05-2024 Glucose [Mass/Vol] 70 mg/dL 70-99 [facility] Serum or plasma calcium dayna urement (mass/volume)Ordered By: Safia Ruelas on 11-05-2024 Calcium [Mass/Vol] 9.5 mg/dL 7.6-11.0 [facility] Serum or plasma urea nitroge n measurement (mass/volume)Ordered By: Balbirjean mariedesireeskye Griderbonimelanie on 11-05-2024 Urea nitrogen [Mass/Vol] 22 mg/dL High 4-19 [facility] Sodium levelOrdered By: Leonides Westonmelanie on 11-05-2024 Sodium [Moles/Vol] 139 mmol/L 133-145 [facility] White blood cell (WBC) count Ordered By: Balbirjean mariejosé antonio Cheobonimelanie on 11-05-2024 WBC (Bld) [#/Vol] 8.6 10*3/uL 4.4-11.0 [facility] Absolute lymphocyte countOrd ered By: Balbirjean mariejosé antonio Cheobonimelanie on 10-29-2024 Lymphocytes Auto (Unsp spec) [#/Vol] 2.69 10*3/uL 0.83-4.51 [facility] Absolute neutrophil countOrd ered By: Leonidesdesireeskye Griderbonimelanie on 10-29-2024 Neutrophils (Bld) [#/Vol] 4.5 10*3/uL 2.0-7.7 [facility] Anion gap in Serum or Plasma Ordered By: Balbirjean mariejosé antonio Cheobonimelanie on 10-29-2024 Anion gap [Moles/Vol] 11 mmol/L 5-15 [facility] Automated lymphocyte count a s percentage of total leukocytesOrdered By: Leonidesdesireeskye Griderbonimelanie on 10-29-2024 Lymphocytes/100 WBC Auto (Unsp spec) 32.6 % 19-41 [facility] BUN/creatinine ratioOrdered By: Balbirjean mariejosé antonio Cheobonimelanie on 10-29-2024 Urea nitrogen/Creatinine [Mass ratio] 25.2 mg/mg High 10-20 [facility] Basophil percentageOrdered B y: Safia Cheobonimelanie on 10-29-2024 Basophils/100 WBC (Bld) 0.7 % 0-1 [facility] Carbon dioxide, total [Moles /volume] in Central venous bloodOrdered By: Safia Griderbonimelanie on 10-29-2024 CO2 [Moles/Vol] 25.7 mmol/L 21.0-32.0 [facility] Chloride assayOrdered By: Balbir jean mariejosé antonio Ruelas on 10-29-2024 Chloride [Moles/Vol] 102 mmol/L 98-108 [facility] Eosinophil percentageOrdered By: sherry Ruelas on 10-29-2024 Eosinophils/100 WBC (Bld) 2.1 % 0-5 [facility] Erythrocyte distribution wid th ratioOrdered By: [facility] on 10-29-2024 Erythrocyte distribution width (RBC) [Ratio] 13.6 % 11.6-14.6 [facility] Erythrocyte distribution wid th standard deviationOrdered By: jean mariegrassflatskye Ruelas on 10-29-2024 Erythrocyte distribution width (RBC) [Ratio] 46.6 fl High 35.1-43.9 [facility] Glomerular filtration rate ( GFR) estimation/1.73 sq m using serum, plasma, or whole bOrdered By: [facility] on 10-29-2024 GFR/1.73 sq M.predicted among non-blacks MDRD (S/P/Bld) [Vol rate/Area] 59 mL/min/{1.73_m2} Low >60 [facility] Comment on above: mL/min/1.73m2 CKD-EP I Creatinine Equation (2020) Hematocrit Auto (Bld) [Volum e fraction]Ordered By: sherry Ruelas on 10-29-2024 Hematocrit (Bld) [Volume fraction] 37.8 % 37-47 [facility] Hemoglobin measurementOrdere d By: Safia Ruelas on 10-29-2024 Hemoglobin (Bld) [Mass/Vol] 12.2 g/dL 12.0-15.0 [facility] Immature granulocytes/100 WB C Auto (Bld)Ordered By: Safia Ruelas on 10-29-2024 Immature granulocytes/100 WBC (Bld) 0.400 % 0.0-0.9 [facility] Comment on above: IG% - Immature Granu locytes (promyelocytes, myelocytes and metamyelocytes) > 1% indicates that a LEFT SHIFT is Present. MCV (mean corpuscular volume ) determinationOrdered By: Safia Ruelas on 10-29-2024 MCV (RBC) [Entitic vol] 92.2 fL 81-99 [facility] Mean corpuscular hemoglobin (MCH) determinationOrdered By: Safia Ruelas on 10-29-2024 MCH (RBC) [Entitic mass] 29.8 pg 27.0-32.0 [facility] Mean corpuscular hemoglobin concentration (MCHC) determinationOrdered By: Safia Ruelas on 10-29-2024 MCHC (RBC) [Mass/Vol] 32.3 g/dL 32-36 [facility] Mean platelet volume determi nationOrdered By: Safia Ruelas on 10-29-2024 Platelet mean volume (Bld) [Entitic vol] 11.1 fL 6.2-12.0 [facility] Monocyte percentageOrdered B y: Safia Ruelas on 10-29-2024 Monocytes/100 WBC (Bld) 9.9 % 0-10 [facility] Neutrophil percentageOrdered By: Safia Ruelas on 10-29-2024 Neutrophils/100 WBC (Bld) 54.3 % 47-70 [facility] Nucleated red blood cell per centageOrdered By: Safia Ruelas on 10-29-2024 Nucleated RBC/100 WBC (Bld) [Ratio] 0 % 0-5 [facility] Platelet countOrdered By: Balbir Ruelas on 10-29-2024 Platelets (Bld) [#/Vol] 283 10*3/uL 150-450 [facility] Potassium measurement (mass/ volume)Ordered By: Safia Ruelas on 10-29-2024 Potassium (Unsp spec) [Mass/Vol] 3.9 mmol/L 3.3-5.1 [facility] RBC Auto (Bld) [#/Vol]Ordere d By: Safia Ruelas on 10-29-2024 RBC (Bld) [#/Vol] 4.10 10*6/uL Low 4.2-5.4 [facility] Serum creatinine measurement (mass/volume)Ordered By: Safia Ruelas on 10-29-2024 Creatinine [Mass/Vol] 0.97 mg/dL 0.70-1.20 [facility] Serum glucose measurement (m ass/volume)Ordered By: Safia Ruelas on 10-29-2024 Glucose [Mass/Vol] 74 mg/dL 70-99 [facility] Serum or plasma calcium dayna urement (mass/volume)Ordered By: Safia Ruelas on 10-29-2024 Calcium [Mass/Vol] 9.5 mg/dL 7.6-11.0 [facility] Serum or plasma urea nitroge n measurement (mass/volume)Ordered By: Safia Ruelas on 10-29-2024 Urea nitrogen [Mass/Vol] 24 mg/dL High 4-19 [facility] Sodium levelOrdered By: Leonides Ruelas on 10-29-2024 Sodium [Moles/Vol] 138 mmol/L 133-145 [facility] White blood cell (WBC) count Ordered By: Safia Ruelas on 10-29-2024 WBC (Bld) [#/Vol] 8.3 10*3/uL 4.4-11.0 [facility] Bilirubin Test strip Ql (U)O rdered By: Safia Ruelas on 10-23-2024 Bilirubin Ql (U) Negative Negative [facility] Ketones Test strip Ql (U)Ord ered By: Safia Ruelas on 10-23-2024 Ketones Ql (U) Negative Negative [facility] Nitrite Test strip Ql (U)Ord ered By: Safia Ruelas on 10-23-2024 Nitrite Ql (U) Positive High Negative [facility] Protein Test strip Ql (U)Ord ered By: Safia Ruelas on 10-23-2024 Protein Ql (U) 15 mg/dl High Negative [facility] Urine clarityOrdered By: Augusto Ruelas on 10-23-2024 Clarity (U) Clear Clear [facility] Urine color determinationOrd ered By: Safia Ruelas on 10-23-2024 Color (U) Yellow Yellow [facility] Urine cultureOrdered By: Augusto Ruelas on 10-23-2024 Bacteria identified Cx Nom (U) Klebsiella pneumoniae sp pneum Abnormal [facility] Urine glucose detectionOrder ed By: Safia Ruelas on 10-23-2024 Glucose Ql (U) Normal mg/dl Normal [facility] Urine leukocyte esterase det ection by dipstickOrdered By: Safia Ruelas on 10-23-2024 Leukocyte esterase Test strip Ql (U) 500 /ul High Negative [facility] Urine pHOrdered By: Mazin Ruelas on 10-23-2024 pH (U) 6.0 [pH] 5.0 - 8.0 [facility] Urine specific gravity measu rementOrdered By: Safai Ruelas on 10-23-2024 Specific gravity (U) [Rel density] 1.010 1.002-1.030 [facility] Urine urobilinogen measureme ntOrdered By: Safia Ruelas on 10-23-2024 Urobilinogen Ql (U) Normal mg/dl Normal [facility] Absolute lymphocyte countOrd ered By: Safia Ruelas on 10-22-2024 Lymphocytes Auto (Unsp spec) [#/Vol] 3.07 10*3/uL 0.83-4.51 [facility] Absolute neutrophil countOrd ered By: Safia Ruelas on 10-22-2024 Neutrophils (Bld) [#/Vol] 4.6 10*3/uL 2.0-7.7 [facility] Anion gap in Serum or Plasma Ordered By: Safia Ruelas on 10-22-2024 Anion gap [Moles/Vol] 15 mmol/L 5-15 [facility] Automated lymphocyte count a s percentage of total leukocytesOrdered By: Safia Ruelas on 10-22-2024 Lymphocytes/100 WBC Auto (Unsp spec) 34.8 % 19-41 [facility] BUN/creatinine ratioOrdered By: Safia Ruelas on 10-22-2024 Urea nitrogen/Creatinine [Mass ratio] 28.6 mg/mg High 10-20 [facility] Basophil percentageOrdered B y: Safia Ruelas on 10-22-2024 Basophils/100 WBC (Bld) 0.9 % 0-1 [facility] Carbon dioxide, total [Moles /volume] in Central venous bloodOrdered By: Safia Ruelas on 10-22-2024 CO2 [Moles/Vol] 23.1 mmol/L 21.0-32.0 [facility] Chloride assayOrdered By: Balbir jean mariejosé antonio Ruelas on 10-22-2024 Chloride [Moles/Vol] 100 mmol/L 98-108 [facility] Eosinophil percentageOrdered By: Safia Ruelas 10-22-2024 Eosinophils/100 WBC (Bld) 3.1 % 0-5 [facility] Erythrocyte distribution wid th ratioOrdered By: Safia Ruelas on 10-22-2024 Erythrocyte distribution width (RBC) [Ratio] 13.6 % 11.6-14.6 [facility] Erythrocyte distribution wid th standard deviationOrdered By: jean mariegrassflatskye Ruleas on 10-22-2024 Erythrocyte distribution width (RBC) [Ratio] 45.9 fl High 35.1-43.9 [facility] Glomerular filtration rate ( GFR) estimation/1.73 sq m using serum, plasma, or whole bOrdered By: Safia Ruelas 10-22-2024 GFR/1.73 sq M.predicted among non-blacks MDRD (S/P/Bld) [Vol rate/Area] 60 mL/min/{1.73_m2} >60 [facility] Comment on above: mL/min/1.73m2 CKD-EP I Creatinine Equation (2020) Hematocrit Auto (Bld) [Volum e fraction]Ordered By: sherry Ruelas 10-22-2024 Hematocrit (Bld) [Volume fraction] 40.7 % 37-47 [facility] Hemoglobin measurementOrdere d By: Safia Ruelas on 10-22-2024 Hemoglobin (Bld) [Mass/Vol] 13.1 g/dL 12.0-15.0 [facility] Immature granulocytes/100 WB C Auto (Bld)Ordered By: Safia Ruelas 10-22-2024 Immature granulocytes/100 WBC (Bld) 1.400 % High 0.0-0.9 [facility] Comment on above: IG% - Immature Granu locytes (promyelocytes, myelocytes and metamyelocytes) > 1% indicates that a LEFT SHIFT is Present. MCV (mean corpuscular volume ) determinationOrdered By: Safia Ruelas on 10-22-2024 MCV (RBC) [Entitic vol] 91.9 fL 81-99 [facility] Mean corpuscular hemoglobin (MCH) determinationOrdered By: Safia Ruelas on 10-22-2024 MCH (RBC) [Entitic mass] 29.6 pg 27.0-32.0 [facility] Mean corpuscular hemoglobin concentration (MCHC) determinationOrdered By: Safia Ruelas on 10-22-2024 MCHC (RBC) [Mass/Vol] 32.2 g/dL 32-36 [facility] Mean platelet volume determi nationOrdered By: Safia Ruelas on 10-22-2024 Platelet mean volume (Bld) [Entitic vol] 11.2 fL 6.2-12.0 [facility] Monocyte percentageOrdered B y: Safia Ruelas on 10-22-2024 Monocytes/100 WBC (Bld) 7.7 % 0-10 [facility] Neutrophil percentageOrdered By: Safia Ruelas on 10-22-2024 Neutrophils/100 WBC (Bld) 52.1 % 47-70 [facility] Nucleated red blood cell per centageOrdered By: Safia Ruelas on 10-22-2024 Nucleated RBC/100 WBC (Bld) [Ratio] 0 % 0-5 [facility] Platelet countOrdered By: Balbir Ruelas on 10-22-2024 Platelets (Bld) [#/Vol] 334 10*3/uL 150-450 [facility] Potassium measurement (mass/ volume)Ordered By: Safia Ruelas on 10-22-2024 Potassium (Unsp spec) [Mass/Vol] 3.7 mmol/L 3.3-5.1 [facility] RBC Auto (Bld) [#/Vol]Ordere d By: Safia Ruelas on 10-22-2024 RBC (Bld) [#/Vol] 4.43 10*6/uL 4.2-5.4 [facility] Serum creatinine measurement (mass/volume)Ordered By: Safia Ruelas on 10-22-2024 Creatinine [Mass/Vol] 0.96 mg/dL 0.70-1.20 [facility] Serum glucose measurement (m ass/volume)Ordered By: Safia Ruelas on 10-22-2024 Glucose [Mass/Vol] 106 mg/dL High 70-99 [facility] Serum or plasma calcium dayna urement (mass/volume)Ordered By: Safia Ruelas on 10-22-2024 Calcium [Mass/Vol] 9.4 mg/dL 7.6-11.0 [facility] [facility] Serum or plasma urea nitroge n measurement (mass/volume)Ordered By: Safia Ruelas on 10-22-2024 Urea nitrogen [Mass/Vol] 28 mg/dL High 4-19 [facility] Sodium levelOrdered By: Leonides josé antonio Jessenia on 10-22-2024 Sodium [Moles/Vol] 138 mmol/L 133-145 [facility] TSH DL <= 0.005 mIU/L QnOrde red By: Safia Ruelas on 10-22-2024 TSH Qn 4.630 uIU/mL High 0.300-4.200 [facility] White blood cell (WBC) count Ordered By: Safia Ruelas on 10-22-2024 WBC (Bld) [#/Vol] 8.8 10*3/uL 4.4-11.0 [facility] Absolute lymphocyte countOrd ered By: Safia Ruelas on 10-15-2024 Lymphocytes Auto (Unsp spec) [#/Vol] 3.04 10*3/uL 0.83-4.51 [facility] Absolute neutrophil countOrd ered By: Safia Ruelas on 10-15-2024 Neutrophils (Bld) [#/Vol] 4.3 10*3/uL 2.0-7.7 [facility] Anion gap in Serum or Plasma Ordered By: Safia Ruelas on 10-15-2024 Anion gap [Moles/Vol] 12 mmol/L 5-15 [facility] Automated lymphocyte count a s percentage of total leukocytesOrdered By: Safia Ruelas on 10-15-2024 Lymphocytes/100 WBC Auto (Unsp spec) 36.7 % 19-41 [facility] BUN/creatinine ratioOrdered By: Safia Ruelas on 10-15-2024 Urea nitrogen/Creatinine [Mass ratio] 36.5 mg/mg High 10-20 [facility] Basophil percentageOrdered B y: Safia Ruelas on 10-15-2024 Basophils/100 WBC (Bld) 0.7 % 0-1 [facility] Carbon dioxide, total [Moles /volume] in Central venous bloodOrdered By: Safia Ruelas on 10-15-2024 CO2 [Moles/Vol] 25.2 mmol/L 21.0-32.0 [facility] Chloride assayOrdered By: Balbir Ruelas on 10-15-2024 Chloride [Moles/Vol] 100 mmol/L 98-108 [facility] Eosinophil percentageOrdered By: Safia Ruelas on 10-15-2024 Eosinophils/100 WBC (Bld) 2.4 % 0-5 [facility] Erythrocyte distribution wid th ratioOrdered By: Safia Ruelas on 10-15-2024 Erythrocyte distribution width (RBC) [Ratio] 13.5 % 11.6-14.6 [facility] Erythrocyte distribution wid th standard deviationOrdered By: Safia Ruelas on 10-15-2024 Erythrocyte distribution width (RBC) [Ratio] 45.2 fl High 35.1-43.9 [facility] Glomerular filtration rate ( GFR) estimation/1.73 sq m using serum, plasma, or whole bOrdered By: Safia Ruelas on 10-15-2024 GFR/1.73 sq M.predicted among non-blacks MDRD (S/P/Bld) [Vol rate/Area] 71 mL/min/{1.73_m2} >60 [facility] Comment on above: mL/min/1.73m2 CKD-EP I Creatinine Equation (2020) Hematocrit Auto (Bld) [Volum e fraction]Ordered By: Safia Ruelas on 10-15-2024 Hematocrit (Bld) [Volume fraction] 40.3 % 37-47 [facility] Hemoglobin measurementOrdere d By: Safia Ruelas on 10-15-2024 Hemoglobin (Bld) [Mass/Vol] 13.3 g/dL 12.0-15.0 [facility] Immature granulocytes/100 WB C Auto (Bld)Ordered By: Safia Ruelas on 10-15-2024 Immature granulocytes/100 WBC (Bld) 0.400 % 0.0-0.9 [facility] Comment on above: IG% - Immature Granu locytes (promyelocytes, myelocytes and metamyelocytes) > 1% indicates that a LEFT SHIFT is Present. MCV (mean corpuscular volume ) determinationOrdered By: Safia Ruelas on 10-15-2024 MCV (RBC) [Entitic vol] 91.0 fL 81-99 [facility] Mean corpuscular hemoglobin (MCH) determinationOrdered By: jean mariegrassflatskye Ruelas on 10-15-2024 MCH (RBC) [Entitic mass] 30.0 pg 27.0-32.0 [facility] Mean corpuscular hemoglobin concentration (MCHC) determinationOrdered By: jean mariegrassflatskye Ruelas on 10-15-2024 MCHC (RBC) [Mass/Vol] 33.0 g/dL 32-36 [facility] Mean platelet volume determi nationOrdered By: Safia Ruelas on 10-15-2024 Platelet mean volume (Bld) [Entitic vol] 11.9 fL 6.2-12.0 [facility] Monocyte percentageOrdered B y: Safia Ruelas on 10-15-2024 Monocytes/100 WBC (Bld) 8.2 % 0-10 [facility] Neutrophil percentageOrdered By: jean mariegrassflatskye Ruelas on 10-15-2024 Neutrophils/100 WBC (Bld) 51.6 % 47-70 [facility] Nucleated red blood cell per centageOrdered By: jean mariegrassflatskye Ruelas on 10-15-2024 Nucleated RBC/100 WBC (Bld) [Ratio] 0 % 0-5 [facility] Platelet countOrdered By: Balbir Ruelas on 10-15-2024 Platelets (Bld) [#/Vol] 221 10*3/uL 150-450 [facility] Potassium measurement (mass/ volume)Ordered By: Safia Ruelas on 10-15-2024 Potassium (Unsp spec) [Mass/Vol] 3.8 mmol/L 3.3-5.1 [facility] RBC Auto (Bld) [#/Vol]Ordere d By: Safia Ruelas on 10-15-2024 RBC (Bld) [#/Vol] 4.43 10*6/uL 4.2-5.4 [facility] Serum creatinine measurement (mass/volume)Ordered By: Safia Ruelas on 10-15-2024 Creatinine [Mass/Vol] 0.83 mg/dL 0.70-1.20 [facility] Serum glucose measurement (m ass/volume)Ordered By: Safia Ruelas on 10-15-2024 Glucose [Mass/Vol] 68 mg/dL Low 70-99 [facility] Serum or plasma calcium dayna urement (mass/volume)Ordered By: Safia Ruelas on 10-15-2024 Calcium [Mass/Vol] 9.3 mg/dL 7.6-11.0 [facility] Serum or plasma urea nitroge n measurement (mass/volume)Ordered By: Safia Ruelas on 10-15-2024 Urea nitrogen [Mass/Vol] 30 mg/dL High 4-19 [facility] Sodium levelOrdered By: Leonides Ruelas on 10-15-2024 Sodium [Moles/Vol] 138 mmol/L 133-145 [facility] White blood cell (WBC) count Ordered By: Safia Ruelas on 10-15-2024 WBC (Bld) [#/Vol] 8.3 10*3/uL 4.4-11.0 [facility] Absolute lymphocyte countOrd ered By: Safia Ruelas on 10-08-2024 Lymphocytes Auto (Unsp spec) [#/Vol] 2.52 10*3/uL 0.83-4.51 [facility] Absolute neutrophil countOrd ered By: Safia Ruelas on 10-08-2024 Neutrophils (Bld) [#/Vol] 4.9 10*3/uL 2.0-7.7 [facility] Anion gap in Serum or Plasma Ordered By: Safia Ruelas on 10-08-2024 Anion gap [Moles/Vol] 14 mmol/L 5-15 [facility] Automated lymphocyte count a s percentage of total leukocytesOrdered By: Safia Ruelas on 10-08-2024 Lymphocytes/100 WBC Auto (Unsp spec) 29.4 % 19-41 [facility] BUN/creatinine ratioOrdered By: Safia Ruelas on 10-08-2024 Urea nitrogen/Creatinine [Mass ratio] 34.1 mg/mg High 10-20 [facility] Basophil percentageOrdered B y: Safia Ruelas on 10-08-2024 Basophils/100 WBC (Bld) 0.7 % 0-1 [facility] Carbon dioxide, total [Moles /volume] in Central venous bloodOrdered By: Safia Ruelas on 10-08-2024 CO2 [Moles/Vol] 24.0 mmol/L 21.0-32.0 [facility] Chloride assayOrdered By: Balbir Ruelas on 10-08-2024 Chloride [Moles/Vol] 100 mmol/L 98-108 [facility] Eosinophil percentageOrdered By: Safia Ruelas on 10-08-2024 Eosinophils/100 WBC (Bld) 2.6 % 0-5 [facility] Erythrocyte distribution wid th ratioOrdered By: Safia Ruelas on 10-08-2024 Erythrocyte distribution width (RBC) [Ratio] 13.2 % 11.6-14.6 [facility] Erythrocyte distribution wid th standard deviationOrdered By: Safia Ruelas on 10-08-2024 Erythrocyte distribution width (RBC) [Ratio] 45.3 fl High 35.1-43.9 [facility] Glomerular filtration rate ( GFR) estimation/1.73 sq m using serum, plasma, or whole bOrdered By: Safia Ruelas on 10-08-2024 GFR/1.73 sq M.predicted among non-blacks MDRD (S/P/Bld) [Vol rate/Area] 65 mL/min/{1.73_m2} >60 [facility] Comment on above: mL/min/1.73m2 CKD-EP I Creatinine Equation (2020) Hematocrit Auto (Bld) [Volum e fraction]Ordered By: Safia Ruelas on 10-08-2024 Hematocrit (Bld) [Volume fraction] 41.7 % 37-47 [facility] Hemoglobin measurementOrdere d By: Safia Ruelas on 10-08-2024 Hemoglobin (Bld) [Mass/Vol] 13.3 g/dL 12.0-15.0 [facility] Immature granulocytes/100 WB C Auto (Bld)Ordered By: Safia Ruelas on 10-08-2024 Immature granulocytes/100 WBC (Bld) 0.400 % 0.0-0.9 [facility] Comment on above: IG% - Immature Granu locytes (promyelocytes, myelocytes and metamyelocytes) > 1% indicates that a LEFT SHIFT is Present. MCV (mean corpuscular volume ) determinationOrdered By: Safia Ruelas on 10-08-2024 MCV (RBC) [Entitic vol] 92.7 fL 81-99 [facility] Mean corpuscular hemoglobin (MCH) determinationOrdered By: Safia Ruelas on 10-08-2024 MCH (RBC) [Entitic mass] 29.6 pg 27.0-32.0 [facility] Mean corpuscular hemoglobin concentration (MCHC) determinationOrdered By: Safia Ruelas on 10-08-2024 MCHC (RBC) [Mass/Vol] 31.9 g/dL Low 32-36 [facility] Mean platelet volume determi nationOrdered By: Safia Ruelas on 10-08-2024 Platelet mean volume (Bld) [Entitic vol] 11.0 fL 6.2-12.0 [facility] Monocyte percentageOrdered B y: Safia Ruelas on 10-08-2024 Monocytes/100 WBC (Bld) 9.2 % 0-10 [facility] Neutrophil percentageOrdered By: Safia Ruelas on 10-08-2024 Neutrophils/100 WBC (Bld) 57.7 % 47-70 [facility] Nucleated red blood cell per centageOrdered By: Safia Ruelas on 10-08-2024 Nucleated RBC/100 WBC (Bld) [Ratio] 0 % 0-5 [facility] Platelet countOrdered By: Balbir Ruelas on 10-08-2024 Platelets (Bld) [#/Vol] 323 10*3/uL 150-450 [facility] Potassium measurement (mass/ volume)Ordered By: Safia Ruelas on 10-08-2024 Potassium (Unsp spec) [Mass/Vol] 4.1 mmol/L 3.3-5.1 [facility] RBC Auto (Bld) [#/Vol]Ordere d By: Safia Ruelas on 10-08-2024 RBC (Bld) [#/Vol] 4.50 10*6/uL 4.2-5.4 [facility] Serum creatinine measurement (mass/volume)Ordered By: Safia Ruelas on 10-08-2024 Creatinine [Mass/Vol] 0.90 mg/dL 0.70-1.20 [facility] Serum glucose measurement (m ass/volume)Ordered By: Safia Ruelas on 10-08-2024 Glucose [Mass/Vol] 82 mg/dL 70-99 [facility] Serum or plasma calcium dayna urement (mass/volume)Ordered By: Safia Ruelas on 10-08-2024 Calcium [Mass/Vol] 9.6 mg/dL 7.6-11.0 [facility] Serum or plasma urea nitroge n measurement (mass/volume)Ordered By: Safia Ruelas on 10-08-2024 Urea nitrogen [Mass/Vol] 31 mg/dL High 4-19 [facility] Sodium levelOrdered By: Leonides Ruelas on 10-08-2024 Sodium [Moles/Vol] 138 mmol/L 133-145 [facility] White blood cell (WBC) count Ordered By: Safia Ruelas on 10-08-2024 WBC (Bld) [#/Vol] 8.6 10*3/uL 4.4-11.0 [facility] 12 Lead EKG performed by [facility] [place] on 10-02-2024 12 Lead EKG performed by [facility] [address] [place] [address] 12 Lead EKG performed by [facility] [place] 10/02/24920 MR#: [id number] Acct: [id number] Name: LINDSAY ACUNA Rep #: [id number] : 1945 78 From: Mj Benavides MD Attending Dr: Dr. Mj Benavides MD Status: DEP A MB Ordering Dr: Mj Benavides MD Date: 10/02/24 Location: [facility] [place] Sex: F C Admitted: BMS/12 Lead EKG performed by [facility] [place] ECG Report Interpretation ---Atrial fibrillation -irregular conduction -Old anterior infarct. ABNORMAL Electronically signed on 10/02/2024 at 16:06 by Mj Benavides [employer] Version [id number] 10/02/24 1608 Date Mj Benavides MD CC: Dr. Kameron Caruso MD Date Dictated: 10/02/24920 Date Transcribed: 10/02/24920 Engineering Inspector: [place] Signed Normal [facility] Cardiology Visit Reporton Cardiology Visit Report [facility] [address] [place] [address] OFFICE VISIT Date of Service: 10/02/24 MR#: [id number] Acct: [id number] Name: LINDSAY ACUNA Rep #: [id number] : 1945 Provider: Dr. Mj Benavides MD Age/Sex: 78/F Location: [facility] Status: Signed HPI HPI History of Present [...] W/C bound Intake [facility] Engineer Required: No Accompanied by: Significant Other [...] normal, nasal (more content not included)... Normal [facility] Absolute lymphocyte countOrd ered By: Safia Ruelas on 10-01-2024 Lymphocytes Auto (Unsp spec) [#/Vol] 2.45 10*3/uL 0.83-4.51 [facility] Absolute neutrophil countOrd ered By: Safia Griderbonimelanie on 10-01-2024 Neutrophils (Bld) [#/Vol] 6.5 10*3/uL 2.0-7.7 [facility] Anion gap in Serum or Plasma Ordered By: Safia Ruelas on 10-01-2024 Anion gap [Moles/Vol] 12 mmol/L 5-15 [facility] Automated lymphocyte count a s percentage of total leukocytesOrdered By: Safia Ruelas on 10-01-2024 Lymphocytes/100 WBC Auto (Unsp spec) 23.1 % 19-41 [facility] BUN/creatinine ratioOrdered By: jean mariegrassflatskye Ruelas on 10-01-2024 Urea nitrogen/Creatinine [Mass ratio] 24.9 mg/mg High 10- [facility] Basophil percentageOrdered B y: Safia Ruelas on 10-01-2024 Basophils/100 WBC (Bld) 0.5 % 0-1 [facility] Carbon dioxide, total [Moles /volume] in Central venous bloodOrdered By: Safia Ruelas on 10-01-2024 CO2 [Moles/Vol] 24.4 mmol/L 21.0-32.0 [facility] Chloride assayOrdered By: Balbir Ruelas on 10-01-2024 Chloride [Moles/Vol] 99 mmol/L 98-108 [facility] Eosinophil percentageOrdered By: sherry Ruelas on 10-01-2024 Eosinophils/100 WBC (Bld) 2.0 % 0-5 [facility] Erythrocyte distribution wid th ratioOrdered By: Safia Ruelas on 10-01-2024 Erythrocyte distribution width (RBC) [Ratio] 13.5 % 11.6-14.6 [facility] Erythrocyte distribution wid th standard deviationOrdered By: sherry Ruelas on 10-01-2024 Erythrocyte distribution width (RBC) [Ratio] 46.2 fl High 35.1-43.9 [facility] Glomerular filtration rate ( GFR) estimation/1.73 sq m using serum, plasma, or whole bOrdered By: Safia Ruelas on 10-01-2024 GFR/1.73 sq M.predicted among non-blacks MDRD (S/P/Bld) [Vol rate/Area] 63 mL/min/{1.73_m2} >60 [facility] Comment on above: mL/min/1.73m2 CKD-EP I Creatinine Equation (2020) Hematocrit Auto (Bld) [Volum e fraction]Ordered By: Safia Ruelas on 10-01-2024 Hematocrit (Bld) [Volume fraction] 38.7 % 37-47 [facility] Hemoglobin measurementOrdere d By: Safia Ruelas on 10-01-2024 Hemoglobin (Bld) [Mass/Vol] 12.5 g/dL 12.0-15.0 [facility] Immature granulocytes/100 WB C Auto (Bld)Ordered By: Safia Ruelas on 10-01-2024 Immature granulocytes/100 WBC (Bld) 0.800 % 0.0-0.9 [facility] Comment on above: IG% - Immature Granu locytes (promyelocytes, myelocytes and metamyelocytes) > 1% indicates that a LEFT SHIFT is Present. MCV (mean corpuscular volume ) determinationOrdered By: Safia Ruelas on 10-01-2024 MCV (RBC) [Entitic vol] 93.3 fL 81-99 [facility] Mean corpuscular hemoglobin (MCH) determinationOrdered By: Safia Ruelas on 10-01-2024 MCH (RBC) [Entitic mass] 30.1 pg 27.0-32.0 [facility] Mean corpuscular hemoglobin concentration (MCHC) determinationOrdered By: Safia Ruelas 10-01-2024 MCHC (RBC) [Mass/Vol] 32.3 g/dL 32-36 [facility] Mean platelet volume determi nationOrdered By: Safia Ruelas 10-01-2024 Platelet mean volume (Bld) [Entitic vol] 11.7 fL 6.2-12.0 [facility] Monocyte percentageOrdered B y: Safia Ruelas on 10-01-2024 Monocytes/100 WBC (Bld) 12.7 % High 0-10 [facility] Neutrophil percentageOrdered By: Safia Ruelas on 10-01-2024 Neutrophils/100 WBC (Bld) 60.9 % 47-70 [facility] Nucleated red blood cell per centageOrdered By: Safia Cheoquyen on 10-01-2024 Nucleated RBC/100 WBC (Bld) [Ratio] 0 % 0-5 [facility] Platelet countOrdered By: Balbir sherry hCeoquyen on 10-01-2024 Platelets (Bld) [#/Vol] 371 10*3/uL 150-450 [facility] Potassium measurement (mass/ volume)Ordered By: Balbirjean mariedesireeskye Griderquyen on 10-01-2024 Potassium (Unsp spec) [Mass/Vol] 4.2 mmol/L 3.3-5.1 [facility] RBC Auto (Bld) [#/Vol]Ordere d By: Safia Cheoquyen on 10-01-2024 RBC (Bld) [#/Vol] 4.15 10*6/uL Low 4.2-5.4 [facility] Serum creatinine measurement (mass/volume)Ordered By: Balbirjean mariejosé antonio Cheobonimelanie on 10-01-2024 Creatinine [Mass/Vol] 0.93 mg/dL 0.70-1.20 [facility] Serum glucose measurement (m ass/volume)Ordered By: Balbirjean mariejosé antonio Cheobonimelanie on 10-01-2024 Glucose [Mass/Vol] 93 mg/dL 70-99 [facility] Serum or plasma calcium dayna urement (mass/volume)Ordered By: Balbirjean mariedesireeskye Griderbonimelanie on 10-01-2024 Calcium [Mass/Vol] 9.5 mg/dL 7.6-11.0 [facility] Serum or plasma urea nitroge n measurement (mass/volume)Ordered By: Balbirsherry Griderbonimelanie on 10-01-2024 Urea nitrogen [Mass/Vol] 23 mg/dL High 4-19 [facility] Sodium levelOrdered By: Leonides josé antonio Jessenia on 10-01-2024 Sodium [Moles/Vol] 135 mmol/L 133-145 [facility] White blood cell (WBC) count Ordered By: Leonidesdesireeskye Griderbonimelanie on 10-01-2024 WBC (Bld) [#/Vol] 10.6 10*3/uL 4.4-11.0 [facility] Clostridium difficile detect ion by polymerase chain reactionOrdered By: Safia Ruelas on 09-29-2024 C. difficile DNA CHUCKY+probe Ql (Unsp spec) [facility] Absolute lymphocyte countOrd ered By: sherry Ruelas on 09-24-2024 Lymphocytes Auto (Unsp spec) [#/Vol] 2.72 10*3/uL 0.83-4.51 [facility] Absolute neutrophil countOrd ered By: Safia Griderbonimelanie on 09-24-2024 Neutrophils (Bld) [#/Vol] 6.3 10*3/uL 2.0-7.7 [facility] Anion gap in Serum or Plasma Ordered By: Safia Ruelas on 09-24-2024 Anion gap [Moles/Vol] 12 mmol/L 5-15 [facility] Automated lymphocyte count a s percentage of total leukocytesOrdered By: Safia Griderbonimelanie on 09-24-2024 Lymphocytes/100 WBC Auto (Unsp spec) 26.3 % 19-41 [facility] BUN/creatinine ratioOrdered By: Safia Griderbonimelanie on 09-24-2024 Urea nitrogen/Creatinine [Mass ratio] 36.4 mg/mg High 10-20 [facility] Basophil percentageOrdered B y: Safia Ruelas on 09-24-2024 Basophils/100 WBC (Bld) 0.7 % 0-1 [facility] Carbon dioxide, total [Moles /volume] in Central venous bloodOrdered By: Safia Ruelas on 09-24-2024 CO2 [Moles/Vol] 24.1 mmol/L 21.0-32.0 [facility] Chloride assayOrdered By: Balbir jean mariejosé antonio Ruelas on 09-24-2024 Chloride [Moles/Vol] 100 mmol/L 98-108 [facility] Eosinophil percentageOrdered By: Safia Ruelas on 09-24-2024 Eosinophils/100 WBC (Bld) 2.7 % 0-5 [facility] Erythrocyte distribution wid th ratioOrdered By: Safia Ruelas on 09-24-2024 Erythrocyte distribution width (RBC) [Ratio] 13.6 % 11.6-14.6 [facility] Erythrocyte distribution wid th standard deviationOrdered By: jean mariegrassflatskye Ruelas on 09-24-2024 Erythrocyte distribution width (RBC) [Ratio] 47.1 fl High 35.1-43.9 [facility] Glomerular filtration rate ( GFR) estimation/1.73 sq m using serum, plasma, or whole bOrdered By: jean mariegrassflatskye Ruelas on 09-24-2024 GFR/1.73 sq M.predicted among non-blacks MDRD (S/P/Bld) [Vol rate/Area] 62 mL/min/{1.73_m2} >60 [facility] Comment on above: mL/min/1.73m2 CKD-EP I Creatinine Equation (2020) Hematocrit Auto (Bld) [Volum e fraction]Ordered By: Leonidesgrassflatskye Ruelas on 09-24-2024 Hematocrit (Bld) [Volume fraction] 41.2 % 37-47 [facility] Hemoglobin measurementOrdere d By: Safia Ruelas on 09-24-2024 Hemoglobin (Bld) [Mass/Vol] 13.0 g/dL 12.0-15.0 [facility] Immature granulocytes/100 WB C Auto (Bld)Ordered By: Safia Ruelas 09-24-2024 Immature granulocytes/100 WBC (Bld) 1.000 % High 0.0-0.9 [facility] Comment on above: IG% - Immature Granu locytes (promyelocytes, myelocytes and metamyelocytes) > 1% indicates that a LEFT SHIFT is Present. MCV (mean corpuscular volume ) determinationOrdered By: Safia Ruelas on 09-24-2024 MCV (RBC) [Entitic vol] 94.3 fL 81-99 [facility] Mean corpuscular hemoglobin (MCH) determinationOrdered By: Safia Ruelas 09-24-2024 MCH (RBC) [Entitic mass] 29.7 pg 27.0-32.0 [facility] Mean corpuscular hemoglobin concentration (MCHC) determinationOrdered By: Safia Ruelas on 09-24-2024 MCHC (RBC) [Mass/Vol] 31.6 g/dL Low 32-36 [facility] Mean platelet volume determi nationOrdered By: Safia Ruelas on 09-24-2024 Platelet mean volume (Bld) [Entitic vol] 11.3 fL 6.2-12.0 [facility] Monocyte percentageOrdered B y: Safia Ruelas on 09-24-2024 Monocytes/100 WBC (Bld) 8.9 % 0-10 [facility] Neutrophil percentageOrdered By: Safia Ruelas on 09-24-2024 Neutrophils/100 WBC (Bld) 60.4 % 47-70 [facility] Nucleated red blood cell per centageOrdered By: Safia Ruelas on 09-24-2024 Nucleated RBC/100 WBC (Bld) [Ratio] 0 % 0-5 [facility] Platelet countOrdered By: Balbir Ruelas on 09-24-2024 Platelets (Bld) [#/Vol] 441 10*3/uL 150-450 [facility] Potassium measurement (mass/ volume)Ordered By: Safia Ruelas on 09-24-2024 Potassium (Unsp spec) [Mass/Vol] 4.3 mmol/L 3.3-5.1 [facility] RBC Auto (Bld) [#/Vol]Ordere d By: Safia Ruelas on 09-24-2024 RBC (Bld) [#/Vol] 4.37 10*6/uL 4.2-5.4 [facility] Serum creatinine measurement (mass/volume)Ordered By: Safia Ruelas on 09-24-2024 Creatinine [Mass/Vol] 0.93 mg/dL 0.70-1.20 [facility] Serum glucose measurement (m ass/volume)Ordered By: Safia Ruelas on 09-24-2024 Glucose [Mass/Vol] 48 mg/dL Low 70-99 [facility] Serum or plasma calcium dayna urement (mass/volume)Ordered By: Safia Ruelas on 09-24-2024 Calcium [Mass/Vol] 9.5 mg/dL 7.6-11.0 [facility] Serum or plasma urea nitroge n measurement (mass/volume)Ordered By: Safia Ruelas on 09-24-2024 Urea nitrogen [Mass/Vol] 34 mg/dL High 4-19 [facility] Sodium levelOrdered By: Leonides jiménezradha Jessenia on 09-24-2024 Sodium [Moles/Vol] 136 mmol/L 133-145 [facility] White blood cell (WBC) count Ordered By: Safia Ruelas on 09-24-2024 WBC (Bld) [#/Vol] 10.4 10*3/uL 4.4-11.0 [facility] Absolute lymphocyte countOrd ered By: Safia Ruelas on 09-17-2024 Lymphocytes Auto (Unsp spec) [#/Vol] 2.52 10*3/uL 0.83-4.51 [facility] Absolute neutrophil countOrd ered By: Safia Ruelas on 09-17-2024 Neutrophils (Bld) [#/Vol] 5.8 10*3/uL 2.0-7.7 [facility] Anion gap in Serum or Plasma Ordered By: Safia Ruelas on 09-17-2024 Anion gap [Moles/Vol] 12 mmol/L 5-15 [facility] Automated lymphocyte count a s percentage of total leukocytesOrdered By: Safia Ruelas on 09-17-2024 Lymphocytes/100 WBC Auto (Unsp spec) 26.3 % 19-41 [facility] BUN/creatinine ratioOrdered By: Safia Ruelas on 09-17-2024 Urea nitrogen/Creatinine [Mass ratio] 45.9 mg/mg High 10-20 [facility] Basophil percentageOrdered B y: Safia Ruelas on 09-17-2024 Basophils/100 WBC (Bld) 0.6 % 0-1 [facility] Calculated very low density lipoprotein (VLDL) cholesterol measurementOrdered By: Safia Ruelas on 09-17-2024 Calculated very low density lipoprotein (VLDL) cholesterol measurement 22 mg/dL 5-40 [facility] Carbon dioxide, total [Moles /volume] in Central venous bloodOrdered By: Safia Ruelas on 09-17-2024 CO2 [Moles/Vol] 24.5 mmol/L 21.0-32.0 [facility] Chloride assayOrdered By: Balbir Ruelas on 09-17-2024 Chloride [Moles/Vol] 98 mmol/L 98-108 [facility] Eosinophil percentageOrdered By: Safia Ruelas on 09-17-2024 Eosinophils/100 WBC (Bld) 3.2 % 0-5 [facility] Erythrocyte distribution wid th ratioOrdered By: sehrry Ruelas on 09-17-2024 Erythrocyte distribution width (RBC) [Ratio] 13.4 % 11.6-14.6 [facility] Erythrocyte distribution wid th standard deviationOrdered By: jean mariegrassflatskye Ruelas on 09-17-2024 Erythrocyte distribution width (RBC) [Ratio] 45.4 fl High 35.1-43.9 [facility] Glomerular filtration rate ( GFR) estimation/1.73 sq m using serum, plasma, or whole bOrdered By: Safia Ruelas on 09-17-2024 GFR/1.73 sq M.predicted among non-blacks MDRD (S/P/Bld) [Vol rate/Area] 69 mL/min/{1.73_m2} >60 [facility] Comment on above: mL/min/1.73m2 CKD-EP I Creatinine Equation (2020) Hematocrit Auto (Bld) [Volum e fraction]Ordered By: Safia uRelas on 09-17-2024 Hematocrit (Bld) [Volume fraction] 38.8 % 37-47 [facility] Hemoglobin measurementOrdere d By: Safia Ruelas on 09-17-2024 Hemoglobin (Bld) [Mass/Vol] 12.6 g/dL 12.0-15.0 [facility] Immature granulocytes/100 WB C Auto (Bld)Ordered By: Safia Ruelas 09-17-2024 Immature granulocytes/100 WBC (Bld) 0.700 % 0.0-0.9 [facility] Comment on above: IG% - Immature Granu locytes (promyelocytes, myelocytes and metamyelocytes) > 1% indicates that a LEFT SHIFT is Present. LDL calc ser/plasOrdered By: Safia Ruelas on 09-17-2024 Cholesterol in LDL [Mass/Vol] 120 mg/dL [facility] Comment on above: Qvotexcyhl=267-872 m g/dL & Higher Mszo=190 mg/dL or greater MCV (mean corpuscular volume ) determinationOrdered By: Safia Ruelas on 09-17-2024 MCV (RBC) [Entitic vol] 91.7 fL 81-99 [facility] Mean corpuscular hemoglobin (MCH) determinationOrdered By: Safia Ruelas on 09-17-2024 MCH (RBC) [Entitic mass] 29.8 pg 27.0-32.0 [facility] Mean corpuscular hemoglobin concentration (MCHC) determinationOrdered By: Safia Ruelas on 09-17-2024 MCHC (RBC) [Mass/Vol] 32.5 g/dL 32-36 [facility] Mean platelet volume determi nationOrdered By: Safia Ruelas on 09-17-2024 Platelet mean volume (Bld) [Entitic vol] 11.4 fL 6.2-12.0 [facility] Monocyte percentageOrdered B y: Safia Ruelas on 09-17-2024 Monocytes/100 WBC (Bld) 8.5 % 0-10 [facility] Neutrophil percentageOrdered By: Safia Ruelas on 09-17-2024 Neutrophils/100 WBC (Bld) 60.7 % 47-70 [facility] Nucleated red blood cell per centageOrdered By: Safia Ruelas on 09-17-2024 Nucleated RBC/100 WBC (Bld) [Ratio] 0 % 0-5 [facility] Platelet countOrdered By: Balbir Ruelas on 09-17-2024 Platelets (Bld) [#/Vol] 311 10*3/uL 150-450 [facility] Potassium measurement (mass/ volume)Ordered By: Safia Ruelas on 09-17-2024 Potassium (Unsp spec) [Mass/Vol] 4.1 mmol/L 3.3-5.1 [facility] RBC Auto (Bld) [#/Vol]Ordere d By: Safia Ruelas on 09-17-2024 RBC (Bld) [#/Vol] 4.23 10*6/uL 4.2-5.4 [facility] Screening total cholesterol/ high density lipoprotein (HDL) cholesterol ratioOrdered By: Safia Ruelas on 09-17-2024 Cholesterol.total/Alta sterol in HDL [Mass ratio] 5.38 {ratio} [facility] Serum creatinine measurement (mass/volume)Ordered By: Safia Ruelas on 09-17-2024 Creatinine [Mass/Vol] 0.86 mg/dL 0.70-1.20 [facility] Serum glucose measurement (m ass/volume)Ordered By: Safia Ruelas on 09-17-2024 Glucose [Mass/Vol] 216 mg/dL High 70-99 [facility] Serum or plasma calcium dayna urement (mass/volume)Ordered By: Safia Ruelas on 09-17-2024 Calcium [Mass/Vol] 9.4 mg/dL 7.6-11.0 [facility] Serum or plasma cholesterol in HDL measurement (mass/volume)Ordered By: Safia Ruelas on 09-17-2024 Cholesterol in HDL [Mass/Vol] 33 mg/dL Low >40 [facility] Comment on above: National Cholesterol Education Program (NCEP) guidelines:<40 mg/dL: Low HDL-cholesterol (major risk factor for CHD)>= 60 mg/dL: High HDL-cholesterol (negative risk factor for CHD)HDL-cholesterol is affected by a number of factors, e.g. smoking, exercise, hormones, sex and age. Serum or plasma cholesterol measurement (mass/volume)Ordered By: Safia Ruelas on 09-17-2024 Cholesterol [Mass/Vol] 175 mg/dL <201 [facility] Comment on above: Cholesterol level, D esirable <200 mg/dLBorderline high cholesterol 200-239 mg/dLHigh cholesterol >=240 mg/dLRecommendations of the NCEP Adult Treatment Panel for the following risk-cutoff thresholds for the [place] population. Serum or plasma urea nitroge n measurement (mass/volume)Ordered By: Balbirjean mariedesireeskye Griderbonimelanie on 09-17-2024 Urea nitrogen [Mass/Vol] 39 mg/dL High 4-19 [facility] Sodium levelOrdered By: Leonides chou Cheobonimelanie on 09-17-2024 Sodium [Moles/Vol] 134 mmol/L 133-145 [facility] TSH DL <= 0.005 mIU/L QnOrde red By: Safia Cheoquyen on 09-17-2024 TSH Qn 3.500 uIU/mL 0.300-4.200 [facility] Triglycerides measurementOrd ered By: Bandarskye Griderbonimelanie on 09-17-2024 Triglyceride [Mass/Vol] 111 mg/dL <199 [facility] Comment on above: The drugs N-Acetylcy steine and Metamizole may falsely depress this assay. Normal range: <150 mg/dLBorderline High: 150-199 mg/dLHigh: 200-499 mg/dLVery High: >500 mg/dL White blood cell (WBC) count Ordered By: Balbirjean mariedesireeskye Griderbonimelanie on 09-17-2024 WBC (Bld) [#/Vol] 9.6 10*3/uL 4.4-11.0 [facility] Absolute lymphocyte countOrd ered By: Balbirjean mariedesireeskye Griderbonimelanie on 09-10-2024 Lymphocytes Auto (Unsp spec) [#/Vol] 2.11 10*3/uL 0.83-4.51 [facility] Absolute neutrophil countOrd ered By: Safia Ruelas on 09-10-2024 Neutrophils (Bld) [#/Vol] 8.1 10*3/uL High 2.0-7.7 [facility] Anion gap in Serum or Plasma Ordered By: Safia Westonmelanie on 09-10-2024 Anion gap [Moles/Vol] 13 mmol/L 5-15 [facility] Automated lymphocyte count a s percentage of total leukocytesOrdered By: Balbirsherry Griderbonimelanie on 09-10-2024 Lymphocytes/100 WBC Auto (Unsp spec) 17.9 % Low 19-41 [facility] BUN/creatinine ratioOrdered By: Safia Ruelas on 09-10-2024 Urea nitrogen/Creatinine [Mass ratio] 29.1 mg/mg High 10-20 [facility] Basophil percentageOrdered B y: Leonidesdesireeskye Griderbonimelanie on 09-10-2024 Basophils/100 WBC (Bld) 0.3 % 0-1 [facility] Bilirubin, totalOrdered By: Safia Griderbonimelanie on 09-10-2024 Bilirubin [Mass/Vol] 0.55 mg/dL 0.00-1.30 [facility] Carbon dioxide, total [Moles /volume] in Central venous bloodOrdered By: Safia Ruelas on 09-10-2024 CO2 [Moles/Vol] 23.6 mmol/L 21.0-32.0 [facility] Chloride assayOrdered By: Balbir jean mariejosé antonio Ruelas on 09-10-2024 Chloride [Moles/Vol] 97 mmol/L Low 98-108 [facility] Eosinophil percentageOrdered By: Safia Cheobonimelanie on 09-10-2024 Eosinophils/100 WBC (Bld) 0.5 % 0-5 [facility] Erythrocyte distribution wid th ratioOrdered By: Balbirsherry Griderbonimelanie on 09-10-2024 Erythrocyte distribution width (RBC) [Ratio] 13.4 % 11.6-14.6 [facility] Erythrocyte distribution wid th standard deviationOrdered By: Safia Ruelas on 09-10-2024 Erythrocyte distribution width (RBC) [Ratio] 45.2 fl High 35.1-43.9 [facility] Glomerular filtration rate ( GFR) estimation/1.73 sq m using serum, plasma, or whole bOrdered By: Safia Ruelas on 09-10-2024 GFR/1.73 sq M.predicted among non-blacks MDRD (S/P/Bld) [Vol rate/Area] 59 mL/min/{1.73_m2} Low >60 [facility] Comment on above: mL/min/1.73m2 CKD-EP I Creatinine Equation (2020) Hematocrit Auto (Bld) [Volum e fraction]Ordered By: Safia Ruelas on 09-10-2024 Hematocrit (Bld) [Volume fraction] 41.8 % 37-47 [facility] Hemoglobin measurementOrdere d By: Safia Ruelas on 09-10-2024 Hemoglobin (Bld) [Mass/Vol] 13.4 g/dL 12.0-15.0 [facility] Immature granulocytes/100 WB C Auto (Bld)Ordered By: Safia Ruelas on 09-10-2024 Immature granulocytes/100 WBC (Bld) 0.800 % 0.0-0.9 [facility] Comment on above: IG% - Immature Granu locytes (promyelocytes, myelocytes and metamyelocytes) > 1% indicates that a LEFT SHIFT is Present. Laboratory - Chemistry and C hemistry - challengeOrdered By: Safia Ruelas on 09-10-2024 AST [Catalytic activity/Vol] 21 U/L <32 [facility] MCV (mean corpuscular volume ) determinationOrdered By: Safia Ruelas on 09-10-2024 MCV (RBC) [Entitic vol] 92.5 fL 81-99 [facility] Mean corpuscular hemoglobin (MCH) determinationOrdered By: jean mariegrassflatskye Ruelas on 09-10-2024 MCH (RBC) [Entitic mass] 29.6 pg 27.0-32.0 [facility] Mean corpuscular hemoglobin concentration (MCHC) determinationOrdered By: Safia Ruelas on 09-10-2024 MCHC (RBC) [Mass/Vol] 32.1 g/dL 32-36 [facility] Mean platelet volume determi nationOrdered By: Safia Ruelas on 09-10-2024 Platelet mean volume (Bld) [Entitic vol] 12.6 fL High 6.2-12.0 [facility] Monocyte percentageOrdered B y: Safia Ruelas on 09-10-2024 Monocytes/100 WBC (Bld) 12.3 % High 0-10 [facility] Neutrophil percentageOrdered By: Safia Ruelas on 09-10-2024 Neutrophils/100 WBC (Bld) 68.2 % 47-70 [facility] No Panel InformationOrdered By: Safia Ruelas on 09-10-2024 21 U/L <32 [facility] Nucleated red blood cell per centageOrdered By: Safia Ruelas on 09-10-2024 Nucleated RBC/100 WBC (Bld) [Ratio] 0 % 0-5 [facility] Platelet countOrdered By: Balbir Ruelas on 09-10-2024 Platelets (Bld) [#/Vol] 190 10*3/uL 150-450 [facility] Potassium measurement (mass/ volume)Ordered By: Safia Ruelas on 09-10-2024 Potassium (Unsp spec) [Mass/Vol] 4.3 mmol/L 3.3-5.1 [facility] RBC Auto (Bld) [#/Vol]Ordere d By: Safia Ruelas on 09-10-2024 RBC (Bld) [#/Vol] 4.52 10*6/uL 4.2-5.4 [facility] Serum creatinine measurement (mass/volume)Ordered By: Safia Ruelas on 09-10-2024 Creatinine [Mass/Vol] 0.98 mg/dL 0.70-1.20 [facility] Serum globulin measurementOr dered By: Safia Ruelas 09-10-2024 Globulin (S) [Mass/Vol] 3.3 g/dL 2.2-4.2 [facility] Serum glucose measurement (m ass/volume)Ordered By: Safia Ruelas on 09-10-2024 Glucose [Mass/Vol] 181 mg/dL High 70-99 [facility] Serum or plasma alanine raymundo otransferase (ALT) measurementOrdered By: Safia Ruelas 09-10-2024 ALT [Catalytic activity/Vol] 26 U/L <35 [facility] Serum or plasma albumin dayna urement (mass/volume)Ordered By: Safia Ruelas on 09-10-2024 Albumin [Mass/Vol] 3.4 g/dL 3.4-4.8 [facility] Serum or plasma albumin/glob ulin mass ratioOrdered By: Safia Ruelas 09-10-2024 Albumin/Globulin [Mass ratio] 1.0 {ratio} 0.9-2.4 [facility] Serum or plasma alkaline hnanah sphatase measurementOrdered By: Safia Ruelas on 09-10-2024 ALP [Catalytic activity/Vol] 114 U/L High 35-104 [facility] Serum or plasma calcium dayna urement (mass/volume)Ordered By: Safia Ruelas on 09-10-2024 Calcium [Mass/Vol] 9.3 mg/dL 7.6-11.0 [facility] Serum or plasma urea nitroge n measurement (mass/volume)Ordered By: Safia Ruelas on 09-10-2024 Urea nitrogen [Mass/Vol] 29 mg/dL High 4-19 [facility] Sodium levelOrdered By: Leonides lazaromelanie Jessenia on 09-10-2024 Sodium [Moles/Vol] 133 mmol/L 133-145 [facility] Total proteinOrdered By: Augusto Ruelas on 09-10-2024 Protein [Mass/Vol] 6.7 g/dL 5.9-8.4 [facility] White blood cell (WBC) count Ordered By: Safia Ruelas on 09-10-2024 WBC (Bld) [#/Vol] 11.8 10*3/uL High 4.4-11.0 [facility] LABORATORYOrdered By: Abigail Smith on 09-09-2024 Glucose [Mass/Vol] 212 mg/dL High 82 - 115 mg/dL [employer] Work Phone: Glucose [Mass/Vol] 226 mg/dL High 82 - 115 mg/dL [employer] Work Phone: LABORATORYOrdered By: Zoila Zarco on 09-08-2024 Glucose [Mass/Vol] 149 mg/dL High 82 - 115 mg/dL [employer] Work Phone: LABORATORYOrdered By: Rob Palmer on 09-08-2024 Blood Glucose Testing Reason Routine (09/08/24 6:16 PM) [employer] Work Phone: Blood Glucose Testing Reason Routine (09/08/24 11:58 AM) [facility] Work Phone: LABORATORYOrdered By: Rob Palmer on 09-07-2024 Blood Glucose Testing Reason Routine (09/07/24 4:46 PM) [facility] Work Phone: .Auto Diffon 09-03-2024 Basophil, Absolute 0.1 10 3/mcL Normal 0.0-0.3 [facility] Comment on above: Performed By: #### A DIFF, CBC, ANEU, GFR, BMP #### [address] [address] Basophils/100 WBC (Bld) 1.0 % Normal 0.0-2.5 [facility] Comment on above: Performed By: #### A DIFF, CBC, ANEU, GFR, BMP #### [address] [address] Eosinophil, Absolute 0.2 10 3/mcL Normal 0.0-0.7 [facility] Comment on above: Performed By: #### A DIFF, CBC, ANEU, GFR, BMP #### [address] [address] Eosinophils/100 WBC (Bld) 3.2 % Normal 0.0-6.0 [facility] Comment on above: Performed By: #### A DIFF, CBC, ANEU, GFR, BMP #### [address] [address] Lymphocyte, Absolute 2.0 10 3/mcL Normal 0.9-4.3 [facility] Comment on above: Performed By: #### A DIFF, CBC, ANEU, GFR, BMP #### [address] [address] Lymphocytes/100 WBC (Bld) 26.6 % Normal 20.0-40.0 [facility] Comment on above: Performed By: #### A DIFF, CBC, ANEU, GFR, BMP #### [address] [address] Monocyte, Absolute 0.7 10 3/mcL Normal 0.1-1.4 [facility] Comment on above: Performed By: #### A DIFF, CBC, ANEU, GFR, BMP #### [address] [address] Monocytes/100 WBC (Bld) 9.7 % Normal 2.0-13.0 [facility] Comment on above: Performed By: #### A DIFF, CBC, ANEU, GFR, BMP #### [address] [address] Neutrophils/100 WBC (Bld) 59.5 % Normal 50.0-75.0 [facility] Comment on above: Performed By: #### A DIFF, CBC, ANEU, GFR, BMP #### [address] [address] .GFRon 09-03-2024 Estimated Glomerular Filtration Rate 57 ml/min/1.73sqm Normal [facility] Comment on above: Result Comment: [...] A DIFF, CBC, ANEU, GFR, BMP #### [address] [address] .NEUABSon 09-03-2024 Neutrophil, Absolute 4.5 10 3/mcL Normal 2.3-8.1 [facility] Comment on above: Performed By: #### A DIFF, CBC, ANEU, GFR, BMP #### [address] [address] B12on 09-03-2024 Cobalamin (Vitamin B12) [Mass/Vol] 834 pg/mL Normal 211-911 [facility] Comment on above: Performed By: #### A DIFF, CBC, ANEU, GFR, BMP #### [place] [id number] CBCon 09-03-2024 Erythrocyte distribution width (RBC) [Ratio] 14.7 % Normal 11.5-15.5 [facility] Comment on above: Performed By: #### A DIFF, CBC, ANEU, GFR, BMP #### [place] [id number] Hematocrit (Bld) [Volume fraction] 39.7 % Normal 34.0-46.0 [facility] Comment on above: Performed By: #### A DIFF, CBC, ANEU, GFR, BMP #### [place] [address] Hgb 13.2 G/dL Normal 12.0-16.0 [facility] Comment on above: Performed By: #### A DIFF, CBC, ANEU, GFR, BMP #### [place] [address] MCH (RBC) [Entitic mass] 30.6 pg Normal 27.0-33.0 [facility] Comment on above: Performed By: #### A DIFF, CBC, ANEU, GFR, BMP #### [place] [address] MCHC 33.3 G/dL Normal 32.0-36.0 [facility] Comment on above: Performed By: #### A DIFF, CBC, ANEU, GFR, BMP #### [place] [address] MCV (RBC) [Entitic vol] 91.9 fL Normal 80.0-99.0 [facility] Comment on above: Performed By: #### A DIFF, CBC, ANEU, GFR, BMP #### [place] [address] Platelet 228 10 3/mcL Normal 150-450 [facility] Comment on above: Performed By: #### A DIFF, CBC, ANEU, GFR, BMP #### [place] [address] Platelet mean volume (Bld) [Entitic vol] 10.1 fL Normal 6.6-10.5 [facility] Comment on above: Performed By: #### A DIFF, CBC, ANEU, GFR, BMP #### [place] [address] RBC 4.32 10 6/mcL Normal 4.10-5.30 [facility] Comment on above: Performed By: #### A DIFF, CBC, ANEU, GFR, BMP #### [place] [address] WBC 7.6 10 3/mcL Normal 4.5-10.8 [facility] Comment on above: Performed By: #### A DIFF, CBC, ANEU, GFR, BMP #### [place] [address] CMPon 09-03-2024 Albumin Level 3.0 G/dL Low 3.2-4.8 [facility] Comment on above: Performed By: #### A DIFF, CBC, ANEU, GFR, BMP #### [place] [address] Albumin/Globulin [Mass ratio] 0.9 {ratio} Normal 0.9-1.6 [facility] Comment on above: Performed By: #### A DIFF, CBC, ANEU, GFR, BMP #### [place] [address] ALP [Catalytic activity/Vol] 115 U/L Normal 38-126 [facility] Comment on above: Performed By: #### A DIFF, CBC, ANEU, GFR, BMP #### [place] [address] ALT [Catalytic activity/Vol] 37 U/L Normal 10-49 [facility] Comment on above: Performed By: #### A DIFF, CBC, ANEU, GFR, BMP #### [place] [address] AST [Catalytic activity/Vol] 31 U/L Normal 8-34 [facility] Comment on above: Performed By: #### A DIFF, CBC, ANEU, GFR, BMP #### [place] [address] Bili Total 0.50 mg/dL Normal 0.20-1.20 [facility] Comment on above: Result Comment: Use of this assay is not recommended for patients undergoing treatment with eltrombopag due to the potential for falsely elevated results. Performed By: #### A DIFF, CBC, ANEU, GFR, BMP #### [address] [address] BUN/Creatinine Ratio 29.7 ratio High 10.0-22.0 [facility] Comment on above: Performed By: #### A DIFF, CBC, ANEU, GFR, BMP #### [address] [address] Calcium [Mass/Vol] 9.6 mg/dL Normal 8.7-10.4 [facility] Comment on above: Performed By: #### A DIFF, CBC, ANEU, GFR, BMP #### [address] [address] Chloride [Moles/Vol] 101 mmol/L Normal 98-110 [facility] Comment on above: Performed By: #### A DIFF, CBC, ANEU, GFR, BMP #### [address] [address] CO2 [Moles/Vol] 27 mmol/L Normal 22-32 [facility] Comment on above: Performed By: #### A DIFF, CBC, ANEU, GFR, BMP #### [address] [address] Creatinine [Mass/Vol] 1.01 mg/dL Normal 0.50-1.20 [facility] Comment on above: Result Comment: Test ing performed on Whereoscope analyzer using enzymatic creatinine methodology. Performed By: #### A DIFF, CBC, ANEU, GFR, BMP #### [address] [address] Electrolyte Balance 10.0 mEq/L Normal 4.0-15.0 [facility] Comment on above: Performed By: #### A DIFF, CBC, ANEU, GFR, BMP #### [address] [address] Globulin 3.4 G/dL Normal 1.5-3.8 [facility] Comment on above: Performed By: #### A DIFF, CBC, ANEU, GFR, BMP #### [address] [address] Glucose [Mass/Vol] 187 mg/dL High 82-115 [facility] Comment on above: Performed By: #### A DIFF, CBC, ANEU, GFR, BMP #### [address] [address] Potassium [Moles/Vol] 4.6 mmol/L Normal 3.5-5.0 [facility] Comment on above: Performed By: #### A DIFF, CBC, ANEU, GFR, BMP #### [address] [address] Sodium [Moles/Vol] 138 mmol/L Normal 136-145 [facility] Comment on above: Performed By: #### A DIFF, CBC, ANEU, GFR, BMP #### [address] [address] Total Protein 6.4 G/dL Normal 5.7-8.2 [facility] Comment on above: Performed By: #### A DIFF, CBC, ANEU, GFR, BMP #### [address] [address] Urea nitrogen [Mass/Vol] 30.0 mg/dL High 8.0-22.0 [facility] Comment on above: Performed By: #### A DIFF, CBC, ANEU, GFR, BMP #### [address] [address] LABORATORYOrdered By: Ann Carrillo on 09-03-2024 Glucose [Mass/Vol] 270 mg/dL [facility] Work Phone: LABORATORYOrdered By: SYSTEM SYSTEM [...] above: Interpretive Data: T esting performed on Whereoscope analyzer using enzymatic creatinine methodology. Electrolyte Balance [...] TSHon 09-03-2024 TSH 3.920 mIU/mL Normal 0.550-4.780 [facility] Comment on above: Performed By: #### A DIFF, CBC, ANEU, GFR, BMP #### [place] [address] CT HEAD OR BRAIN W/O CONTRAS Ton [...] 09/02/2024 3:10:44 PM Ordering Provider: SILVINO SCHEATZLE [facility] [place] 08-30-2024 RANDEE Telephone (FAMPWS) LINDSAY ACUNA ([id number]) 1945 F Date Time Provider Department 08/30/24 KAMERON CARUSO FAMAkinWS During your visit today, we recorded the following information about you: Jaiden Paulino, RN 08/30/2024 9:11 AM Signed Marya- [facility] reports patient was in [facility] with dx: stroke, and transferred to [facility]. Pt will be discharged from [facility] on 09/07/24 to home with [facility] SN PT OT [facility]. Asking if pcp agreeable to follow for C. Please phone Marya with verbal: [phone] Mj Glover APRN.GARRETT 08/30/2024 9:19 AM Signed Please let know that Dr. Caruso's team will follow orders. Okay to proceed. Mj Glover APRN.Fouzia Reynoso LPN 08/30/2024 10:09 AM Signed Marya with [facility] notified. Allergies As of Date: 08/30/2024 Noted Allergy Reaction BENZOCAINE 07/08/2005 2 - Rash COCAINE 05/28/2008 Comments: Inverted T PERFUMES 07/08/2005 12 - Shortness of Breath Comments: coughes and chokes SULFA (SULFONAMIDE ANTIBIOTICS) 07/08/2005 5 - Intolerance Date Reviewed: 06/26/2024 Reviewed by: Bret Arambula LPN - Fully Assessed Reason for Visit: [facility] requesting verbal agree to follow [Other] [...] daily with breakfast. - blood sugar diagnostic (RevenewTOUCH ULTRA TEST) test strip Test Blood Sugar one times daily Dx: E11.29 Insulin: No - lancets (RevenewTOUCH DELICA PLUS LANCET) 30 gauge Test blood [...] FOUZIA MILLER on 08/30/24 Normal [facility] .Auto Diffon 08-26-2024 Basophil, Absolute 0.1 10 3/mcL Normal 0.0-0.3 [facility] Comment on above: Performed By: #### A DIFF, CBC, ANEU, GFR, BMP #### [address] [address] Basophils/100 WBC (Bld) 1.0 % Normal 0.0-2.5 [facility] Comment on above: Performed By: #### A DIFF, CBC, ANEU, GFR, BMP #### [address] [address] Eosinophil, Absolute 0.3 10 3/mcL Normal 0.0-0.7 [facility] Comment on above: Performed By: #### A DIFF, CBC, ANEU, GFR, BMP #### [address] [address] Eosinophils/100 WBC (Bld) 4.2 % Normal 0.0-6.0 [facility] Comment on above: Performed By: #### A DIFF, CBC, ANEU, GFR, BMP #### [address] [address] Lymphocyte, Absolute 2.2 10 3/mcL Normal 0.9-4.3 [facility] Comment on above: Performed By: #### A DIFF, CBC, ANEU, GFR, BMP #### [address] [address] Lymphocytes/100 WBC (Bld) 26.3 % Normal 20.0-40.0 [facility] Comment on above: Performed By: #### A DIFF, CBC, ANEU, GFR, BMP #### [address] [address] Monocyte, Absolute 0.9 10 3/mcL Normal 0.1-1.4 [facility] Comment on above: Performed By: #### A DIFF, CBC, ANEU, GFR, BMP #### [address] [address] Monocytes/100 WBC (Bld) 11.4 % Normal 2.0-13.0 [facility] Comment on above: Performed By: #### A DIFF, CBC, ANEU, GFR, BMP #### [address] [address] Neutrophils/100 WBC (Bld) 57.1 % Normal 50.0-75.0 [facility] Comment on above: Performed By: #### A DIFF, CBC, ANEU, GFR, BMP #### [address] [address] .GFRon 08-26-2024 Estimated Glomerular Filtration Rate 59 ml/min/1.73sqm Normal [facility] Comment on above: Result Comment: [...] A DIFF, CBC, ANEU, GFR, BMP #### [address] [address] .NEUABSon 08-26-2024 Neutrophil, Absolute 4.7 10 3/mcL Normal 2.3-8.1 [facility] Comment on above: Performed By: #### A DIFF, CBC, ANEU, GFR, BMP #### [address] [address] BMPon 08-26-2024 BUN/Creatinine Ratio 35.1 ratio High 10.0-22.0 [facility] Comment on above: Performed By: #### A DIFF, CBC, ANEU, GFR, BMP #### [address] [address] Calcium [Mass/Vol] 9.8 mg/dL Normal 8.7-10.4 [facility] Comment on above: Performed By: #### A DIFF, CBC, ANEU, GFR, BMP #### [address] [address] Chloride [Moles/Vol] 98 mmol/L Normal 98-110 [facility] Comment on above: Performed By: #### A DIFF, CBC, ANEU, GFR, BMP #### [address] [address] CO2 [Moles/Vol] 25 mmol/L Normal 22-32 [facility] Comment on above: Performed By: #### A DIFF, CBC, ANEU, GFR, BMP #### [address] [address] Creatinine [Mass/Vol] 0.97 mg/dL Normal 0.50-1.20 [facility] Comment on above: Result Comment: Test ing performed on Whereoscope analyzer using enzymatic creatinine methodology. Performed By: #### A DIFF, CBC, ANEU, GFR, BMP #### [address] [address] Electrolyte Balance 12.0 mEq/L Normal 4.0-15.0 [facility] Comment on above: Performed By: #### A DIFF, CBC, ANEU, GFR, BMP #### [address] [address] Glucose [Mass/Vol] 160 mg/dL High 82-115 [facility] Comment on above: Performed By: #### A DIFF, CBC, ANEU, GFR, BMP #### [address] [address] Potassium [Moles/Vol] 4.7 mmol/L Normal 3.5-5.0 [facility] Comment on above: Result Comment: Spec imen slightly hemolyzed. Performed By: #### A DIFF, CBC, ANEU, GFR, BMP #### [address] [address] Sodium [Moles/Vol] 135 mmol/L Low 136-145 [facility] Comment on above: Performed By: #### A DIFF, CBC, ANEU, GFR, BMP #### [place] [id number] Urea nitrogen [Mass/Vol] 34.0 mg/dL High 8.0-22.0 [facility] Comment on above: Performed By: #### A DIFF, CBC, ANEU, GFR, BMP #### [place] [id number] CBCon 08-26-2024 Erythrocyte distribution width (RBC) [Ratio] 14.0 % Normal 11.5-15.5 [facility] Comment on above: Performed By: #### A DIFF, CBC, ANEU, GFR, BMP #### [place] [address] Hematocrit (Bld) [Volume fraction] 41.0 % Normal 34.0-46.0 [facility] Comment on above: Performed By: #### A DIFF, CBC, ANEU, GFR, BMP #### [place] [address] Hgb 13.4 G/dL Normal 12.0-16.0 [facility] Comment on above: Performed By: #### A DIFF, CBC, ANEU, GFR, BMP #### [place] [address] MCH (RBC) [Entitic mass] 30.0 pg Normal 27.0-33.0 [facility] Comment on above: Performed By: #### A DIFF, CBC, ANEU, GFR, BMP #### [place] [address] MCHC 32.7 G/dL Normal 32.0-36.0 [facility] Comment on above: Performed By: #### A DIFF, CBC, ANEU, GFR, BMP #### [place] [address] MCV (RBC) [Entitic vol] 91.9 fL Normal 80.0-99.0 [facility] Comment on above: Performed By: #### A DIFF, CBC, ANEU, GFR, BMP #### [place] [address] Platelet 297 10 3/mcL Normal 150-450 [facility] Comment on above: Performed By: #### A DIFF, CBC, ANEU, GFR, BMP #### [place] [address] Platelet mean volume (Bld) [Entitic vol] 11.0 fL High 6.6-10.5 [facility] Comment on above: Performed By: #### A DIFF, CBC, ANEU, GFR, BMP #### [place] [address] RBC 4.46 10 6/mcL Normal 4.10-5.30 [facility] Comment on above: Performed By: #### A DIFF, CBC, ANEU, GFR, BMP #### [place] [address] WBC 8.3 10 3/mcL Normal 4.5-10.8 [facility] Comment on above: Performed By: #### A DIFF, CBC, ANEU, GFR, BMP #### [place] [address] LABORATORYOrdered By: SYSTEM SYSTEM on 08-26-2024 Basophils [...] above: Interpretive Data: T esting performed on Whereoscope analyzer using enzymatic creatinine methodology. Electrolyte Balance [...] resident's findings and interpretation. Interpreted by: Jamar Lay DO Preliminary Report By: Padilla Barrera Electronically signed By Jamar Lay DO Dictated Date: 08/25/2024 1:58:31 PM Prelim Date: 08/25/2024 2:00:44 PM Sign Date: 08/25/2024 2:27:26 PM Ordering Provider: [facility] MAIN XR HUMERUS MINIMUM 2 [...] resident's findings and interpretation. Interpreted by: Jamar Lay DO Preliminary Report By: Padilla Barrera Electronically signed By Jamar Lay DO Dictated Date: 08/25/2024 1:52:15 PM Prelim Date: 08/25/2024 1:55:41 PM Sign Date: 08/25/2024 2:26:11 PM Ordering Provider: [facility] MAIN XR SHOULDER MINIMUM 2 [...] resident's findings and interpretation. Interpreted by: Jamar Lay DO Preliminary Report By: Padilla Barrera Electronically signed By Jamar Lay DO Dictated Date: 08/25/2024 1:54:13 PM Prelim Date: 08/25/2024 1:57:23 PM Sign Date: 08/25/2024 2:26:45 PM Ordering Provider: [facility] MAIN LABORATORYOrdered By: Kala lux on 08-23-2024 Glucose [Mass/Vol] 278 mg/dL [facility] elfego Garber Work Phone: LABORATORYOrdered By: Kala lux on 08-22-2024 Glucose [Mass/Vol] 320 mg/dL [facility] Work Phone: A1Con 08-21-2024 Glucose [Mass/Vol] 194 mg/dL Normal [facility] Comment on above: Result Comment: Nancy mated Average Glucose calculated by equation ((28.7xA1C)-46.7) Estimated average glucose (eAG) is a calculated value from Hemoglobin A1C and is graphic art sales representative of the average blood glucose level in the last 2-3 month period. Normal range: less than 114 mg/dL Performed By: #### A 1C #### [address] [address] HbA1c (Bld) [Mass fraction] 8.4 % High 4.0-6.0 [facility] Comment on above: Performed By: #### A 1C #### [place] [address] LABORATORYOrdered By: SYSTEM SYSTEM on 08-21-2024 Glucose [Mass/Vol] 194 mg/dL Invalid Interpretation Code Auto Chem SS Comment on above: Interpretive Data: E stimated average glucose (eAG) is a calculated value from Hemoglobin A1C and is graphic art sales representative of the average blood glucose level in the last 2-3 month period. Normal range: less than 114 mg/dL HbA1c (Bld) [Mass fraction] 8.4 % High 4.0 - 6.0 % Auto Chem SS .Auto Diffon 08-20-2024 Basophil, Absolute 0.1 10 3/mcL Normal 0.0-0.3 [facility] Comment on above: Performed By: #### B MP, ADIFF, CBC, GFR, ANEU #### [address] [address] Basophils/100 WBC (Bld) 1.1 % Normal 0.0-2.5 [facility]IN Comment on above: Performed By: #### B MP, ADIFF, CBC, GFR, ANEU #### [address] [address] Eosinophil, Absolute 0.3 10 3/mcL Normal 0.0-0.7 [facility]IN Comment on above: Performed By: #### B MP, ADIFF, CBC, GFR, ANEU #### [address] [address] Eosinophils/100 WBC (Bld) 3.6 % Normal 0.0-6.0 [facility] Comment on above: Performed By: #### B MP, ADIFF, CBC, GFR, ANEU #### [address] [address] Lymphocyte, Absolute 1.7 10 3/mcL Normal 0.9-4.3 [facility] Comment on above: Performed By: #### B MP, ADIFF, CBC, GFR, ANEU #### [address] [address] Lymphocytes/100 WBC (Bld) 20.8 % Normal 20.0-40.0 [facility] Comment on above: Performed By: #### B MP, ADIFF, CBC, GFR, ANEU #### [address] [address] Monocyte, Absolute 0.9 10 3/mcL Normal 0.1-1.4 [facility] Comment on above: Performed By: #### B MP, ADIFF, CBC, GFR, ANEU #### [address] [address] Monocytes/100 WBC (Bld) 11.4 % Normal 2.0-13.0 [facility] Comment on above: Performed By: #### B MP, ADIFF, CBC, GFR, ANEU #### [address] [address] Neutrophils/100 WBC (Bld) 63.1 % Normal 50.0-75.0 [facility] Comment on above: Performed By: #### B MP, ADIFF, CBC, GFR, ANEU #### [address] [address] .GFRon 08-20-2024 Estimated Glomerular Filtration Rate 55 ml/min/1.73sqm Normal [facility] Comment on above: Result Comment: [...] A DIFF, CBC, ANEU, GFR, BMP #### [address] [address] .NEUABSon 08-20-2024 Neutrophil, Absolute 5.1 10 3/mcL Normal 2.3-8.1 [facility] Comment on above: Performed By: #### B MP, ADIFF, CBC, GFR, ANEU #### [address] [address] BMPon 08-20-2024 BUN/Creatinine Ratio 29.8 ratio High 10.0-22.0 [facility] Comment on above: Performed By: #### B MP, ADIFF, CBC, GFR, ANEU #### [address] [address] Calcium [Mass/Vol] 9.8 mg/dL Normal 8.7-10.4 [facility] Comment on above: Performed By: #### B MP, ADIFF, CBC, GFR, ANEU #### [address] [address] Chloride [Moles/Vol] 95 mmol/L Low 98-110 [facility] Comment on above: Performed By: #### B MP, ADIFF, CBC, GFR, ANEU #### [address] [address] CO2 [Moles/Vol] 34 mmol/L High 22-32 [facility] Comment on above: Performed By: #### B MP, ADIFF, CBC, GFR, ANEU #### [address] [address] Creatinine [Mass/Vol] 1.04 mg/dL Normal 0.50-1.20 [facility] MAIN Comment on above: Result Comment: Test ing performed on Whereoscope analyzer using enzymatic creatinine methodology. Performed By: #### B MP, ADIFF, CBC, GFR, ANEU #### [place] [id number] Electrolyte Balance 5.0 mEq/L Normal 4.0-15.0 [facility] MAIN Comment on above: Performed By: #### B MP, ADIFF, CBC, GFR, ANEU #### [place] [id number] Glucose [Mass/Vol] 244 mg/dL High 82-115 [facility] Comment on above: Performed By: #### B MP, ADIFF, CBC, GFR, ANEU #### [place] [id number] Potassium [Moles/Vol] 4.8 mmol/L Normal 3.5-5.0 [facility] Comment on above: Result Comment: Spec imen slightly hemolyzed. Performed By: #### B MP, ADIFF, CBC, GFR, ANEU #### [place] [address] Sodium [Moles/Vol] 134 mmol/L Low 136-145 [facility] Comment on above: Performed By: #### B MP, ADIFF, CBC, GFR, ANEU #### [place] [id number] Urea nitrogen [Mass/Vol] 31.0 mg/dL High 8.0-22.0 [facility] Comment on above: Performed By: #### B MP, ADIFF, CBC, GFR, ANEU #### [place] [id number] CBCon 08-20-2024 Erythrocyte distribution width (RBC) [Ratio] 14.0 % Normal 11.5-15.5 [facility] Comment on above: Performed By: #### B MP, ADIFF, CBC, GFR, ANEU #### [place] [id number] Hematocrit (Bld) [Volume fraction] 41.9 % Normal 34.0-46.0 [facility] Comment on above: Performed By: #### B MP, ADIFF, CBC, GFR, ANEU #### [place] [id number] Hgb 13.6 G/dL Normal 12.0-16.0 [facility] Comment on above: Performed By: #### B MP, ADIFF, CBC, GFR, ANEU #### [address] [address] MCH (RBC) [Entitic mass] 29.7 pg Normal 27.0-33.0 [facility] Comment on above: Performed By: #### B MP, ADIFF, CBC, GFR, ANEU #### [place] [address] MCHC 32.4 G/dL Normal 32.0-36.0 [facility] Comment on above: Performed By: #### B MP, ADIFF, CBC, GFR, ANEU #### [place] [address] MCV (RBC) [Entitic vol] 91.5 fL Normal 80.0-99.0 [facility] Comment on above: Performed By: #### B MP, ADIFF, CBC, GFR, ANEU #### [place] [address] Platelet 301 10 3/mcL Normal 150-450 [facility] Comment on above: Performed By: #### B MP, ADIFF, CBC, GFR, ANEU #### [place] [address] Platelet mean volume (Bld) [Entitic vol] 11.0 fL High 6.6-10.5 [facility] Comment on above: Performed By: #### B MP, ADIFF, CBC, GFR, ANEU #### [place] [address] RBC 4.58 10 6/mcL Normal 4.10-5.30 [facility] Comment on above: Performed By: #### B MP, ADIFF, CBC, GFR, ANEU #### [place] [address] WBC 8.1 10 3/mcL Normal 4.5-10.8 [facility] Comment on above: Performed By: #### B MP, ADIFF, CBC, GFR, ANEU #### [place] [address] LABORATORYOrdered By: SYSTEM SYSTEM on 08-20-2024 Basophils [...] above: Interpretive Data: T esting performed on Whereoscope analyzer using enzymatic creatinine methodology. Electrolyte Balance [...] 08/18/2024 3:14:15 PM Ordering Provider: NANDO Anderson [facility] .Auto Diffon 08-16-2024 Basophil, Absolute 0.1 10 3/mcL Normal 0.0-0.3 [facility] Comment on above: Performed By: #### A DIFF, CBC, ANEU, GFR, BMP #### [address] [address] Basophils/100 WBC (Bld) 0.7 % Normal 0.0-2.5 [facility] Comment on above: Performed By: #### A DIFF, CBC, ANEU, GFR, BMP #### [address] [address] Eosinophil, Absolute 0.3 10 3/mcL Normal 0.0-0.7 [facility] Comment on above: Performed By: #### A DIFF, CBC, ANEU, GFR, BMP #### [address] [address] Eosinophils/100 WBC (Bld) 2.1 % Normal 0.0-6.0 [facility] Comment on above: Performed By: #### A DIFF, CBC, ANEU, GFR, BMP #### [address] [address] Lymphocyte, Absolute 1.9 10 3/mcL Normal 0.9-4.3 [facility] Comment on above: Performed By: #### A DIFF, CBC, ANEU, GFR, BMP #### [address] [address] Lymphocytes/100 WBC (Bld) 14.8 % Low 20.0-40.0 [facility] Comment on above: Performed By: #### A DIFF, CBC, ANEU, GFR, BMP #### [address] [address] Monocyte, Absolute 1.2 10 3/mcL Normal 0.1-1.4 [facility] Comment on above: Performed By: #### A DIFF, CBC, ANEU, GFR, BMP #### [address] [address] Monocytes/100 WBC (Bld) 9.8 % Normal 2.0-13.0 [facility] Comment on above: Performed By: #### A DIFF, CBC, ANEU, GFR, BMP #### [address] [address] Neutrophils/100 WBC (Bld) 72.6 % Normal 50.0-75.0 [facility] Comment on above: Performed By: #### A DIFF, CBC, ANEU, GFR, BMP #### [address] [address] .GFRon 08-16-2024 Estimated Glomerular Filtration Rate 58 ml/min/1.73sqm Normal [facility] Comment on above: Result Comment: [...] A DIFF, CBC, ANEU, GFR, BMP #### [address] [address] .NEUABSon 08-16-2024 Neutrophil, Absolute 9.2 10 3/mcL High 2.3-8.1 [facility] Comment on above: Performed By: #### A DIFF, CBC, ANEU, GFR, BMP #### [place] [id number] BMPon 08-16-2024 BUN/Creatinine Ratio 34.3 ratio High 10.0-22.0 [facility] Comment on above: Performed By: #### A DIFF, CBC, ANEU, GFR, BMP #### [place] [address] Calcium [Mass/Vol] 9.0 mg/dL Normal 8.7-10.4 [facility] Comment on above: Performed By: #### A DIFF, CBC, ANEU, GFR, BMP #### [place] [address] Chloride [Moles/Vol] 100 mmol/L Normal 98-110 [facility] Comment on above: Performed By: #### A DIFF, CBC, ANEU, GFR, BMP #### [place] [address] CO2 [Moles/Vol] 30 mmol/L Normal 22-32 [facility] Comment on above: Performed By: #### A DIFF, CBC, ANEU, GFR, BMP #### [place] [address] Creatinine [Mass/Vol] 0.99 mg/dL Normal 0.50-1.20 [facility] Comment on above: Result Comment: Test ing performed on Whereoscope analyzer using enzymatic creatinine methodology. Performed By: #### A DIFF, CBC, ANEU, GFR, BMP #### [place] [address] Electrolyte Balance 5.0 mEq/L Normal 4.0-15.0 [facility] Comment on above: Performed By: #### A DIFF, CBC, ANEU, GFR, BMP #### [address] [address] Glucose [Mass/Vol] 259 mg/dL High 82-115 [facility] Comment on above: Performed By: #### A DIFF, CBC, ANEU, GFR, BMP #### [address] [address] Potassium [Moles/Vol] 5.0 mmol/L Normal 3.5-5.0 [facility] Comment on above: Performed By: #### A DIFF, CBC, ANEU, GFR, BMP #### [address] [address] Sodium [Moles/Vol] 135 mmol/L Low 136-145 [facility] Comment on above: Performed By: #### A DIFF, CBC, ANEU, GFR, BMP #### [address] [address] Urea nitrogen [Mass/Vol] 34.0 mg/dL High 8.0-22.0 [facility] Comment on above: Performed By: #### A DIFF, CBC, ANEU, GFR, BMP #### [address] [address] CBCon 08-16-2024 Erythrocyte distribution width (RBC) [Ratio] 13.7 % Normal 11.5-15.5 [facility] Comment on above: Performed By: #### A DIFF, CBC, ANEU, GFR, BMP #### [address] [address] Hematocrit (Bld) [Volume fraction] 43.3 % Normal 34.0-46.0 [facility] Comment on above: Performed By: #### A DIFF, CBC, ANEU, GFR, BMP #### [address] [address] Hgb 13.9 G/dL Normal 12.0-16.0 [facility] Comment on above: Performed By: #### A DIFF, CBC, ANEU, GFR, BMP #### [address] [address] MCH (RBC) [Entitic mass] 30.0 pg Normal 27.0-33.0 [facility] Comment on above: Performed By: #### A DIFF, CBC, ANEU, GFR, BMP #### [address] [address] MCHC 32.1 G/dL Normal 32.0-36.0 [facility] Comment on above: Performed By: #### A DIFF, CBC, ANEU, GFR, BMP #### [place] [id number] [address] [place] [address] MCV (RBC) [Entitic vol] 93.6 fL Normal 80.0-99.0 [facility] Comment on above: Performed By: #### A DIFF, CBC, ANEU, GFR, BMP #### [address] [address] Platelet 230 10 3/mcL Normal 150-450 [facility] Comment on above: Performed By: #### A DIFF, CBC, ANEU, GFR, BMP #### [place] [address] Platelet mean volume (Bld) [Entitic vol] 10.7 fL High 6.6-10.5 [facility] Comment on above: Performed By: #### A DIFF, CBC, ANEU, GFR, BMP #### [address] [address] RBC 4.63 10 6/mcL Normal 4.10-5.30 [facility] Comment on above: Performed By: #### A DIFF, CBC, ANEU, GFR, BMP #### [address] [address] WBC 12.7 10 3/mcL High 4.5-10.8 [facility] Comment on above: Performed By: #### A DIFF, CBC, ANEU, GFR, BMP #### [address] [address] LABORATORYOrdered By: Marily Panda on 08-16-2024 Blood Glucose Interventions Administered agent to decrease blood sugar (08/16/24 12:23 PM) [employer] Work Phone: Blood Glucose Interventions Retest (08/16/24 10:15 AM) [employer] Work Phone: Bacteria identified Cx Nom ( Bld)on 08-15-2024 Bacteria identified Cx Nom (Unsp spec) NO GROWTH DAY 5 OF 5 [facility] CARDIAC RHYTHMon 08-15-2024 [facility] CBC,PLATELETSon 08-15-2024 Erythrocyte distribution width (RBC) [Ratio] 13.4 % 10.8 - 14.9 % [facility] Hematocrit (Bld) [Volume fraction] 43.8 % 34.9 - 44.3 % [facility] Hemoglobin (Bld) [Mass/Vol] 13.5 g/dL 11.4 - 15.2 g/dL [facility] Interpretation and review of laboratory results Abnormal [facility] MCH (RBC) [Entitic mass] 28.9 pg 25.9 - 33.9 pg [facility] MCHC (RBC) [Mass/Vol] 30.8 g/dL Low 31.4 - 35.9 g/dL [facility] MCV (RBC) [Entitic vol] 93.8 fL 79.6 - 97.7 fL [facility] Platelet mean volume (Bld) [Entitic vol] 12 fL 8.5 - 12.2 fL [facility] Platelets (Bld) [#/Vol] 252 10*3/uL 150 - 393 K/uL [facility] RBC (Bld) [#/Vol] 4.67 10*6/uL [facility] WBC (Bld) [#/Vol] 11.94 10*3/uL High 3.99 - 11.19 K/uL [facility] Hematocrit (Bld) [Volume fraction] 43.8 % Normal 34.9-44.3 [facility] Comment on above: Performed By: #### X M #### [facility] (DEFAULT) [address] [address] Hemoglobin (Bld) [Mass/Vol] 13.5 g/dL Normal 11.4-15.2 [facility] Comment on above: Performed By: #### X M #### [facility] (DEFAULT) [address] [place] [address] MCV (RBC) [Entitic vol] 93.8 fL Normal 79.6-97.7 [facility] Comment on above: Performed By: #### X M #### [facility] (DEFAULT) [address] [place] [address] Mean Cell Hgb 28.9 pg Normal 25.9-33.9 [facility] Comment on above: Performed By: #### X M #### [facility] (DEFAULT) [address] [place] [address] Mean Cell Hgb Conc 30.8 g/dL Low 31.4-35.9 [facility] Comment on above: Performed By: #### X M #### [facility] (DEFAULT) [address] [place] [address] Platelet mean volume (Bld) [Entitic vol] 12.0 fL Normal 8.5-12.2 [facility] Comment on above: Performed By: #### X M #### [facility] (DEFAULT) [address] [place] [address] Platelets (Bld) [#/Vol] 252 10*3/uL Normal 150-393 [facility] Comment on above: Performed By: #### X M #### [facility] (DEFAULT) [address] [place] [address] RBC (Bld) [#/Vol] 4.67 10*6/uL Normal 3.91-5.04 [facility] Comment on above: Performed By: #### X M #### [facility] (DEFAULT) [address] [place] [address] RBC Distribution 13.4 % Normal 10.8-14.9 [facility] Comment on above: Performed By: #### X M #### [facility] (DEFAULT) [address] [place] [address] WBC (Bld) [#/Vol] 11.94 10*3/uL High 3.99-11.19 [facility] Comment on above: Performed By: #### X M #### [facility] (DEFAULT) [address] [place] [address] CHEM 7 (LYTES,BUN,CREA,GLUC) on 08-15-2024 Anion gap [Moles/Vol] 16 mmol/L 7 - 17 mmol/L [facility] Chloride [Moles/Vol] 99 mmol/L 98 - 10 8 mmol/L [facility] CO2 [Moles/Vol] 25 mmol/L 21 - 31 mmol/L [facility] Creatinine [Mass/Vol] 1.27 mg/dL High 0.50 - 1.20 mg/dL [facility] eGFR, CKD-EPI, Female 43 Low - PINF [facility] Glucose [Mass/Vol] 214 mg/dL High 70 - 179 mg/dL [facility] Interpretation and review of laboratory results Abnormal [facility] Osmolality Calc [Osmolality] 306 High [facility] Potassium [Moles/Vol] 4.8 mmol/L 3.5 - 5.0 mmol/L [facility] Sodium [Moles/Vol] 135 mmol/L 135 - 145 mmol/L [facility] Urea nitrogen [Mass/Vol] 51 mg/dL High 7 - 25 mg/dL [facility] Urea nitrogen/Creatinine [Mass ratio] 40 mg/mg [facility] Anion gap [Moles/Vol] 16 mmol/L Normal 7-17 [facility] Comment on above: Performed By: #### H [facility] #### [facility] (DEFAULT) [address] [place] [address] Chloride [Moles/Vol] 99 mmol/L Normal 98-108 [facility] Comment on above: Performed By: #### H EMOGC #### [facility] (DEFAULT) [address] [place] [address] CO2 [Moles/Vol] 25 mmol/L Normal 21-31 [facility] Comment on above: Performed By: #### H EMO #### [facility] (DEFAULT) [address] [place] [address] Creatinine [Mass/Vol] 1.27 mg/dL High 0.50-1.20 [facility] Comment on above: Performed By: #### H EMO #### [facility] (DEFAULT) [address] [place] [address] GFR/1.73 sq M.predicted among non-blacks MDRD (S/P/Bld) [Vol rate/Area] 43 mL/min/{1.73_m2} Low >=60 [facility] Comment on above: Result Comment: Repo rted eGFR is based on the CKD-EPI 2020 equation using creatinine, age, and sex. Performed By: #### H EMO #### [facility] (DEFAULT) [address] [place] [address] Glucose [Mass/Vol] 214 mg/dL High Nonfastin -179 mg/dL; Fastin-99 [facility] Comment on above: Performed By: #### H EMO #### [place] [facility] (DEFAULT) [address] [place] [address] Osmolality [Osmolality] 306 mosm/kg High 278-305 [facility] Comment on above: Performed By: #### H EMO #### [facility] (DEFAULT) [address] [place] [address] Potassium [Moles/Vol] 4.8 mmol/L Normal 3.5-5.0 [facility] Comment on above: Performed By: #### H EMOGC #### [facility] (DEFAULT) [address] [address] Sodium [Moles/Vol] 135 mmol/L Normal 135-145 [facility] Comment on above: Performed By: #### H EMOGC #### [facility] (DEFAULT) [address] [place] [address] Urea nitrogen [Mass/Vol] 51 mg/dL High 7-25 [facility] Comment on above: Performed By: #### H [facility] #### [facility] (DEFAULT) [address] [place] [address] Urea nitrogen/Creatinine [Mass ratio] 40 mg/mg Normal [facility] Comment on above: Performed By: #### H [facility] #### [facility] (DEFAULT) [address] [place] [address] GLUCOSE POCon 08-15-2024 Glucose [Mass/Vol] 190 mg/dL High 70 - 179 mg/dL [facility] Interpretation and review of laboratory results Abnormal [facility] POC Sample Type CAPBL [facility] Glucose [Mass/Vol] 146 mg/dL 70 - 179 mg/dL [facility] POC Sample Type CAPBL [facility] Glucose [Mass/Vol] 215 mg/dL High 70 - 179 mg/dL [facility] Interpretation and review of laboratory results Abnormal [facility] POC Sample Type CAPBL [facility] MAGNESIUMon 08-15-2024 Interpretation and review of laboratory results Normal [facility] Magnesium [Mass/Vol] 1.6 mg/dL 1.6 - 2 .6 mg/dL [facility] Magnesium [Mass/Vol] 1.6 mg/dL Normal 1.6-2.6 [facility] Comment on above: Performed By: #### [facility] #### [facility] (DEFAULT) [address] [place] [address] No Panel Informationon 08-15 [facility] CBC,PLATELETSon 08-14-2024 Erythrocyte distribution width (RBC) [Ratio] 13.4 % 10.8 - 14.9 % [facility] Hematocrit (Bld) [Volume fraction] 47.9 % High 34.9 - 44.3 % [facility] Hemoglobin (Bld) [Mass/Vol] 14.3 g/dL 11.4 - 15.2 g/dL [facility] Interpretation and review of laboratory results Abnormal [facility] MCH (RBC) [Entitic mass] 29.3 pg 25.9 - 33.9 pg [facility] MCHC (RBC) [Mass/Vol] 29.9 g/dL Low 31.4 - 35.9 g/dL [facility] MCV (RBC) [Entitic vol] 98.2 fL High 79.6 - 97.7 fL [facility] Platelet mean volume (Bld) [Entitic vol] 11.3 fL 8.5 - 12.2 fL [facility] Platelets (Bld) [#/Vol] 229 10*3/uL 150 - 393 K/uL [facility] RBC (Bld) [#/Vol] 4.88 10*6/uL [facility] WBC (Bld) [#/Vol] 12.14 10*3/uL High 3.99 - 11.19 K/uL [facility] Hematocrit (Bld) [Volume fraction] 47.9 % High 34.9-44.3 [facility] Comment on above: Performed By: #### X M #### [facility] (DEFAULT) [address] [address] Hemoglobin (Bld) [Mass/Vol] 14.3 g/dL Normal 11.4-15.2 [facility] Comment on above: Performed By: #### X M #### [facility] (DEFAULT) [address] [place] [address] MCV (RBC) [Entitic vol] 98.2 fL High 79.6-97.7 O [facility] Comment on above: Performed By: #### X M #### [facility] (DEFAULT) [address] [place] [address]368 Mean Cell Hgb 29.3 pg Normal 25.9-33.9 [facility] Comment on above: Performed By: #### X M #### [facility] (DEFAULT) [address] [address] Mean Cell Hgb Conc 29.9 g/dL Low 31.4-35.9 [facility] Comment on above: Performed By: #### X M #### [facility] (DEFAULT) [address] [address] Platelet mean volume (Bld) [Entitic vol] 11.3 fL Normal 8.5-12.2 [facility] Comment on above: Performed By: #### X M #### [facility] (DEFAULT) [address] [address] Platelets (Bld) [#/Vol] 229 10*3/uL Normal 150-393 [facility] Comment on above: Performed By: #### X M #### [facility] (DEFAULT) [address] [address] RBC (Bld) [#/Vol] 4.88 10*6/uL Normal 3.91-5.04 [facility] Comment on above: Performed By: #### X M #### [facility] (DEFAULT) [address] [address] RBC Distribution 13.4 % Normal 10.8-14.9 [facility] Comment on above: Performed By: #### X M #### [facility] (DEFAULT) [address] [address] WBC (Bld) [#/Vol] 12.14 10*3/uL High 3.99-11.19 [facility] Comment on above: Performed By: #### X M #### [facility] (DEFAULT) [address] [address] CHEM 7 (LYTES,BUN,CREA,GLUC) on 08-14-2024 Anion gap [Moles/Vol] 16 mmol/L 7 - 17 mmol/L [facility] Chloride [Moles/Vol] 101 mmol/L 98 - 10 8 mmol/L [facility] CO2 [Moles/Vol] 23 mmol/L 21 - 31 mmol/L [facility] Creatinine [Mass/Vol] 1.15 mg/dL 0.50 - 1.20 mg/dL [facility] eGFR, CKD-EPI, Female 48 Low - PINF [facility] Glucose [Mass/Vol] 208 mg/dL High 70 - 179 mg/dL [facility] Interpretation and review of laboratory results Abnormal [facility] Osmolality Calc [Osmolality] 304 [facility] Potassium [Moles/Vol] 4.7 mmol/L 3.5 - 5.0 mmol/L [facility] Sodium [Moles/Vol] 135 mmol/L 135 - 145 mmol/L [facility] Urea nitrogen [Mass/Vol] 47 mg/dL High 7 - 25 mg/dL [facility] Urea nitrogen/Creatinine [Mass ratio] 41 mg/mg [facility] Anion gap [Moles/Vol] 16 mmol/L Normal 7-17 [facility] Comment on above: Performed By: #### B LDCULT #### [facility] (DEFAULT) [address] [address] Chloride [Moles/Vol] 101 mmol/L Normal 98-108 [facility] Comment on above: Performed By: #### B LDCULT #### [facility] (DEFAULT) [address] [address] CO2 [Moles/Vol] 23 mmol/L Normal 21-31 [facility] Comment on above: Performed By: #### B LDCULT #### [facility] (DEFAULT) [address] [address] Creatinine [Mass/Vol] 1.15 mg/dL Normal 0.50-1.20 [facility] Comment on above: Performed By: #### B LDCULT #### [facility] (DEFAULT) [address] [place] [address] GFR/1.73 sq M.predicted among non-blacks MDRD (S/P/Bld) [Vol rate/Area] 48 mL/min/{1.73_m2} Low >=60 [facility] Comment on above: Result Comment: Repo rted eGFR is based on the CKD-EPI 2020 equation using creatinine, age, and sex. Performed By: #### B LDCULT #### [facility] (DEFAULT) [address] [place] [address] Glucose [Mass/Vol] 208 mg/dL High Nonfastin -179 mg/dL; Fastin-99 [facility] Comment on above: Performed By: #### B LDCULT #### [facility] (DEFAULT) [address] [place] [address] Osmolality [Osmolality] 304 mosm/kg Normal 278-305 [facility] Comment on above: Performed By: #### B LDCULT #### [facility] (DEFAULT) [address] [place] [address] Potassium [Moles/Vol] 4.7 mmol/L Normal 3.5-5.0 [facility] Comment on above: Performed By: #### B LDCULT #### [facility] (DEFAULT) [address] [place] [address] Sodium [Moles/Vol] 135 mmol/L Normal 135-145 [facility] Comment on above: Performed By: #### B LDCULT #### [facility] (DEFAULT) [address] [place] [address] Urea nitrogen [Mass/Vol] 47 mg/dL High 7-25 [facility] Comment on above: Performed By: #### B LDCULT #### [facility] (DEFAULT) [address] [place] [address] Urea nitrogen/Creatinine [Mass ratio] 41 mg/mg Normal [facility] Comment on above: Performed By: #### B LDCULT #### [facility] (DEFAULT) [address] [place] [address] GLUCOSE POCon 08-14-2024 Glucose [Mass/Vol] 204 mg/dL High 70 - 179 mg/dL [facility] Interpretation and review of laboratory results Abnormal [facility] POC Sample Type CAPBL [facility] Glucose [Mass/Vol] 264 mg/dL High 70 - 179 mg/dL [facility] Interpretation and review of laboratory results Abnormal [facility] POC Sample Type CAPBL [facility] Glucose [Mass/Vol] 189 mg/dL High 70 - 179 mg/dL [facility] Interpretation and review of laboratory results Abnormal [facility] POC Sample Type CAPBL [facility] MAGNESIUMon 08-14-2024 Interpretation and review of laboratory results Normal [facility] Magnesium [Mass/Vol] 1.6 mg/dL 1.6 - 2 .6 mg/dL [facility] Magnesium [Mass/Vol] 1.6 mg/dL Normal 1.6-2.6 [facility] Comment on above: Performed By: #### B LDCULT #### [facility] (DEFAULT) [address] [place] [address] No Panel Informationon 08-14 [facility] CBC,PLATELETSon 08-13-2024 Erythrocyte distribution width (RBC) [Ratio] 13.4 % 10.8 - 14.9 % [facility] Hematocrit (Bld) [Volume fraction] 45.7 % High 34.9 - 44.3 % [facility] Hemoglobin (Bld) [Mass/Vol] 14.3 g/dL 11.4 - 15.2 g/dL [facility] Interpretation and review of laboratory results Abnormal [facility] MCH (RBC) [Entitic mass] 29.5 pg 25.9 - 33.9 pg [facility] MCHC (RBC) [Mass/Vol] 31.3 g/dL Low 31.4 - 35.9 g/dL [facility] MCV (RBC) [Entitic vol] 94.2 fL 79.6 - 97.7 fL [facility] Platelet mean volume (Bld) [Entitic vol] 11.7 fL 8.5 - 12.2 fL [facility] Platelets (Bld) [#/Vol] 245 10*3/uL 150 - 393 K/uL [facility] RBC (Bld) [#/Vol] 4.85 10*6/uL [facility] WBC (Bld) [#/Vol] 12.02 10*3/uL High 3.99 - 11.19 K/uL [facility] Hematocrit (Bld) [Volume fraction] 45.7 % High 34.9-44.3 [facility] Comment on above: Performed By: #### [facility] #### [facility] (DEFAULT) [address] [place] [address] Hemoglobin (Bld) [Mass/Vol] 14.3 g/dL Normal 11.4-15.2 [facility] Comment on above: Performed By: #### H EMO #### [facility] (DEFAULT) [address] [place] [address] MCV (RBC) [Entitic vol] 94.2 fL Normal 79.6-97.7 O [facility] Comment on above: Performed By: #### H EMO #### [facility] (DEFAULT) [address] [place] [address] Mean Cell Hgb 29.5 pg Normal 25.9-33.9 [facility] Comment on above: Performed By: #### H EMO #### [facility] (DEFAULT) [address] [place] [address] Mean Cell Hgb Conc 31.3 g/dL Low 31.4-35.9 [facility] Comment on above: Performed By: #### H EMOGC #### [facility] (DEFAULT) [address] [place] [address] Platelet mean volume (Bld) [Entitic vol] 11.7 fL Normal 8.5-12.2 [facility] Comment on above: Performed By: #### H EMOGC #### [facility] (DEFAULT) [address] [place] [address] Platelets (Bld) [#/Vol] 245 10*3/uL Normal 150-393 [facility] Comment on above: Performed By: #### H EMOGC #### [facility] (DEFAULT) [address] [place] [address] RBC (Bld) [#/Vol] 4.85 10*6/uL Normal 3.91-5.04 [facility] Comment on above: Performed By: #### H EMOGC #### [facility] (DEFAULT) [address] [place] [address] RBC Distribution 13.4 % Normal 10.8-14.9 [facility] Comment on above: Performed By: #### H EMOGC #### [facility] (DEFAULT) [address] [place] [address] WBC (Bld) [#/Vol] 12.02 10*3/uL High 3.99-11.19 [facility] Comment on above: Performed By: #### H EMOGC #### [facility] (DEFAULT) [address] [place] [address] CHEM 7 (LYTES,BUN,CREA,GLUC) on 08-13-2024 Anion gap [Moles/Vol] 15 mmol/L 7 - 17 mmol/L [facility] Chloride [Moles/Vol] 104 mmol/L 98 - 10 8 mmol/L [facility] CO2 [Moles/Vol] 23 mmol/L 21 - 31 mmol/L [facility] Creatinine [Mass/Vol] 1.18 mg/dL 0.50 - 1.20 mg/dL [facility] eGFR, CKD-EPI, Female 47 Low - PINF [facility] Glucose [Mass/Vol] 225 mg/dL High 70 - 179 mg/dL [facility] Interpretation and review of laboratory results Abnormal [facility] Osmolality Calc [Osmolality] 311 High [facility] Potassium [Moles/Vol] 4.6 mmol/L 3.5 - 5.0 mmol/L [facility] Sodium [Moles/Vol] 137 mmol/L 135 - 145 mmol/L [facility] Urea nitrogen [Mass/Vol] 55 mg/dL High 7 - 25 mg/dL [facility] Urea nitrogen/Creatinine [Mass ratio] 47 mg/mg [facility] Anion gap [Moles/Vol] 15 mmol/L Normal 7-17 [facility] Comment on above: Performed By: #### [facility] #### [facility] (DEFAULT) [address] [address] Chloride [Moles/Vol] 104 mmol/L Normal 98-108 [facility] Comment on above: Performed By: #### [facility] #### [facility] (DEFAULT) [address] [address] CO2 [Moles/Vol] 23 mmol/L Normal 21-31 [facility] Comment on above: Performed By: #### [facility] #### [facility] (DEFAULT) [address] [address] Creatinine [Mass/Vol] 1.18 mg/dL Normal 0.50-1.20 [facility] Comment on above: Performed By: #### [facility] #### [facility] (DEFAULT) [address] [address] GFR/1.73 sq M.predicted among non-blacks MDRD (S/P/Bld) [Vol rate/Area] 47 mL/min/{1.73_m2} Low >=60 [facility] Comment on above: Result Comment: Repo rted eGFR is based on the CKD-EPI 2020 equation using creatinine, age, and sex. Performed By: #### H EMO #### [facility] (DEFAULT) [address] [place] [address] Glucose [Mass/Vol] 225 mg/dL High Nonfastin -179 mg/dL; Fastin-99 [facility] Comment on above: Performed By: #### [facility] #### [facility] (DEFAULT) [address] [place] [address] Osmolality [Osmolality] 311 mosm/kg High 278-305 [facility] Comment on above: Performed By: #### [facility] #### [facility] (DEFAULT) [address] [place] [address] Potassium [Moles/Vol] 4.6 mmol/L Normal 3.5-5.0 [facility] Comment on above: Performed By: #### [facility] #### [facility] (DEFAULT) [address] [place] [address] Sodium [Moles/Vol] 137 mmol/L Normal 135-145 [facility] Comment on above: Performed By: #### [facility] #### [facility] (DEFAULT) [address] [place] [address] Urea nitrogen [Mass/Vol] 55 mg/dL High 7-25 [facility] Comment on above: Performed By: #### H EMO #### [facility] (DEFAULT) [address] [place] [address] Urea nitrogen/Creatinine [Mass ratio] 47 mg/mg Normal [facility] Comment on above: Performed By: #### H EMO #### [facility] (DEFAULT) [address] [place] [address] GLUCOSE POCon 08-13-2024 Glucose [Mass/Vol] 195 mg/dL High 70 - 179 mg/dL [facility] Interpretation and review of laboratory results Abnormal [facility] POC Sample Type CAPBL [facility] Glucose [Mass/Vol] 198 mg/dL High 70 - 179 mg/dL [facility] Interpretation and review of laboratory results Abnormal [facility] POC Sample Type CAPBL [facility] Glucose [Mass/Vol] 158 mg/dL 70 - 179 mg/dL [facility] POC Sample Type CAPBL [facility] Glucose [Mass/Vol] 211 mg/dL High 70 - 179 mg/dL [facility] Interpretation and review of laboratory results Abnormal [facility] POC Sample Type CAPBL [facility] Glucose [Mass/Vol] 240 mg/dL High 70 - 179 mg/dL [facility] Interpretation and review of laboratory results Abnormal [facility] POC Sample Type CAPBL [facility] MAGNESIUMon 08-13-2024 Interpretation and review of laboratory results Normal [facility] Magnesium [Mass/Vol] 1.8 mg/dL 1.6 - 2 .6 mg/dL [facility] Magnesium [Mass/Vol] 1.8 mg/dL Normal 1.6-2.6 [facility] Comment on above: Performed By: #### [facility] #### [facility] (DEFAULT) [address] [place] [address] No Panel Informationon 08-13 [facility] CBC,PLATELETSon 08-12-2024 Erythrocyte distribution width (RBC) [Ratio] 13.6 % 10.8 - 14.9 % [facility] Hematocrit (Bld) [Volume fraction] 45.1 % High 34.9 - 44.3 % [facility] Hemoglobin (Bld) [Mass/Vol] 14.3 g/dL 11.4 - 15.2 g/dL [facility] Interpretation and review of laboratory results Abnormal [facility] MCH (RBC) [Entitic mass] 29.7 pg 25.9 - 33.9 pg [facility] MCHC (RBC) [Mass/Vol] 31.7 g/dL 31.4 - 35.9 g/dL [facility] MCV (RBC) [Entitic vol] 93.6 fL 79.6 - 97.7 fL [facility] Platelet mean volume (Bld) [Entitic vol] 11.4 fL 8.5 - 12.2 fL [facility] Platelets (Bld) [#/Vol] 241 10*3/uL 150 - 393 K/uL [facility] RBC (Bld) [#/Vol] 4.82 10*6/uL [facility] WBC (Bld) [#/Vol] 14.32 10*3/uL High 3.99 - 11.19 K/uL [facility] Hematocrit (Bld) [Volume fraction] 45.1 % High 34.9-44.3 [facility] Comment on above: Performed By: #### [facility] #### [facility] (DEFAULT) [address] [address] Hemoglobin (Bld) [Mass/Vol] 14.3 g/dL Normal 11.4-15.2 [facility] Comment on above: Performed By: #### [facility] #### [facility] (DEFAULT) [address] [address] MCV (RBC) [Entitic vol] 93.6 fL Normal 79.6-97.7 O [facility] Comment on above: Performed By: #### H EMOGC #### [facility] (DEFAULT) [address] [address] Mean Cell Hgb 29.7 pg Normal 25.9-33.9 [facility] Comment on above: Performed By: #### H EMOGC #### [facility] (DEFAULT) [address] [address] Mean Cell Hgb Conc 31.7 g/dL Normal 31.4-35.9 [facility] Comment on above: Performed By: #### H EMO #### [facility] (DEFAULT) [address] [place] [address] Platelet mean volume (Bld) [Entitic vol] 11.4 fL Normal 8.5-12.2 [facility] Comment on above: Performed By: #### H EMO #### [facility] (DEFAULT) [address] [place] [address] Platelets (Bld) [#/Vol] 241 10*3/uL Normal 150-393 [facility] Comment on above: Performed By: #### H EMO #### [facility] (DEFAULT) [address] [place] [address] RBC (Bld) [#/Vol] 4.82 10*6/uL Normal 3.91-5.04 [facility] Comment on above: Performed By: #### H EMO #### [facility] (DEFAULT) [address] [place] [address] RBC Distribution 13.6 % Normal 10.8-14.9 [facility] Comment on above: Performed By: #### H EMO #### [facility] (DEFAULT) [address] [place] [address] WBC (Bld) [#/Vol] 14.32 10*3/uL High 3.99-11.19 [facility] Comment on above: Performed By: #### H EMO #### [facility] (DEFAULT) [address] [place] [address] CHEM 7 (LYTES,BUN,CREA,GLUC) on 08-12-2024 Anion gap [Moles/Vol] 15 mmol/L 7 - 17 mmol/L [facility] Chloride [Moles/Vol] 104 mmol/L 98 - 10 8 mmol/L [facility] CO2 [Moles/Vol] 27 mmol/L 21 - 31 mmol/L [facility] Creatinine [Mass/Vol] 1.36 mg/dL High 0.50 - 1.20 mg/dL [facility] eGFR, CKD-EPI, Female 40 Low - PINF [facility] Glucose [Mass/Vol] 126 mg/dL 70 - 179 mg/dL [facility] Interpretation and review of laboratory results Abnormal [facility] Osmolality Calc [Osmolality] 313 High [facility] Potassium [Moles/Vol] 4.5 mmol/L 3.5 - 5.0 mmol/L [facility] Sodium [Moles/Vol] 141 mmol/L 135 - 145 mmol/L [facility] Urea nitrogen [Mass/Vol] 56 mg/dL High 7 - 25 mg/dL [facility] Urea nitrogen/Creatinine [Mass ratio] 41 mg/mg [facility] Anion gap [Moles/Vol] 15 mmol/L Normal 7-17 [facility] Comment on above: Performed By: #### T YPEC #### [facility] (DEFAULT) [address] [address] Chloride [Moles/Vol] 104 mmol/L Normal 98-108 [facility] Comment on above: Performed By: #### T YPEC #### [facility] (DEFAULT) [address] [address] CO2 [Moles/Vol] 27 mmol/L Normal 21-31 [facility] Comment on above: Performed By: #### T YPEC #### [facility] (DEFAULT) [address] [address] Creatinine [Mass/Vol] 1.36 mg/dL High 0.50-1.20 [facility] Comment on above: Performed By: #### T YPEC #### [facility] (DEFAULT) [address] [address] GFR/1.73 sq M.predicted among non-blacks MDRD (S/P/Bld) [Vol rate/Area] 40 mL/min/{1.73_m2} Low >=60 [facility] Comment on above: Result Comment: Repo rted eGFR is based on the CKD-EPI 2020 equation using creatinine, age, and sex. Performed By: #### T YPEC #### [facility] (DEFAULT) [address] [place] [id number] Glucose [Mass/Vol] 126 mg/dL Normal Nonfastin -179 mg/dL; Fastin-99 [facility] Comment on above: Performed By: #### T YPEC #### [facility] (DEFAULT) [address] [place] [address]331 Osmolality [Osmolality] 313 mosm/kg High 278-305 [facility] Comment on above: Performed By: #### T YPEC #### [facility] (DEFAULT) [address] [place] [address] 71435 Potassium [Moles/Vol] 4.5 mmol/L Normal 3.5-5.0 [facility] Comment on above: Performed By: #### T YPEC #### [facility] (DEFAULT) [address] [place] [address] 40698 Sodium [Moles/Vol] 141 mmol/L Normal 135-145 [facility] Comment on above: Performed By: #### T YPEC #### [facility] (DEFAULT) [address] [place] [address] 75816 Urea nitrogen [Mass/Vol] 56 mg/dL High 7-25 [facility] Comment on above: Performed By: #### T YPEC #### [facility] (DEFAULT) [address] [place] [address] 11088 Urea nitrogen/Creatinine [Mass ratio] 41 mg/mg Normal [facility] Comment on above: Performed By: #### T YPEC #### [facility] (DEFAULT) [address] [place] [address] 52790 GLUCOSE POCon 08-12-2024 Glucose [Mass/Vol] 231 mg/dL High 70 - 179 mg/dL [facility] Interpretation and review of laboratory results Abnormal [facility] POC Sample Type CAPBL [facility] Glucose [Mass/Vol] 208 mg/dL High 70 - 179 mg/dL [facility] Interpretation and review of laboratory results Abnormal [facility] POC Sample Type CAPBL [facility] Glucose [Mass/Vol] 160 mg/dL 70 - 179 mg/dL [facility] POC Sample Type CAPBL [facility] Glucose [Mass/Vol] 107 mg/dL 70 - 179 mg/dL [facility] POC Sample Type CAPBL [facility] MAGNESIUMon 08-12-2024 Interpretation and review of laboratory results Normal [facility] Magnesium [Mass/Vol] 2.2 mg/dL 1.6 - 2 .6 mg/dL [facility] Magnesium [Mass/Vol] 2.2 mg/dL Normal 1.6-2.6 [facility] Comment on above: Performed By: #### T YPEC #### [facility] (DEFAULT) [address] [place] [address] No Panel Informationon 08-12 [facility] SURG PATH REQUESTOrdered By: Renae Glez on 08-12-2024 Case Report [facility] Clinical History o5ghjCBvPEXzyHUzDBIy NVx jmyGeUTFzsNWmD2DnkuajJQ bjUF1vJT1agZnjbLMahYZbI XXlRuSph1owk074oPWaq8zb QPKYxaguiQx0gXdcN45kx4P 5ZgslF6qjYSOwHYjdFBCaMW zmvAIaPAb6AVQroMKhrtPzJ tDbVPUtzVDuaRQ1RDQwPX4y lffdSDdpAXpfZLTwtjX7MBC nrGAlD1GdISMsBI1ewsgoAV L6GLfvPUVwHSH3ErRdNAZly 6Quqjm3BgUmgAv0v5syGLMq ETWndGaki9agTBC2ZBZvpTW bR7gcoL9xDXMyLA7cokofn4 zfRVpuOPveZRMtzIJ2vcW8N KHawUNcB8WzjQ5aDLEsEZVb bzIfaGrbqC8kFcUvMOvwFdL lJd7WIWsZUlLaWAXun3MnQK OvTYZWbICmtf7vmCH8OUCVn 56iVfPeRKSlePPyyRTBrGQ8 b5K1WxDfUb4irWWthODkzIG tkIJ3s8Z5XAIev6TtUAMmFt xwYXJ9 [facility] For Immediate Release to Patient's MyChart? Yes Yes [facility] Gross Description e8kqjNWfIERem4dtKWUh bGF uZzEwMzNcZnRuYmpcdWMxIH tccnRmMVxlcGljMTExMDVcY B5nrDgybDm9yTknDPGbitQ2 lJOxHQhwl4nlDUT4p4qulhe tHMDfDYslCq8oyOLcuRavQs KdRYZrBGe2zC96JPNysX9sr IPhNSeifiWnZYMbB0UqVV6g OBrszZAoMKW1wSbeJDVhuvj cAdQ9UFbrPCQwzqdjZBc6JR uoLCJhjLP0ZTAstQBjP0TbH APjWN7djae4AFP8NIpqUVNd PjL2IYOwyVOvGYXbePkjWDl ss873MIK4TrSdRITusvHovA jgeF6aFxAvIMFExMFpg9FzU 1bxRY0opZGkcqOqCPf8MGCy vD5bz09dSGTfs5Laswh7IMc fQiEsTRFoM42ufNEmamAgVS dpdGggdGhlIHBhdGllbnQnc rYbDU1yRTAxQHOaH6Cex2La a11lqsZbJaUaHsFluLLcGIN wtamzScTkPQxtEvQzYnx7WD IgVGhlIHNwZWNpbWVuIGlzI IXnw2gngjF1EHVmKkuzw2Dp mKAcXIEprhMekJPnBW9sDCV nxgEit6OdXS2xFALbgfTzVm ItF99jjrVvTB1mAUAqgi0qg O0wJJJoSjBpdTmjm0KvCTTj bz9qXLMiDxY5oIQ7hxIyHvR sC53knN6vH7OkPTCtk9XaQG vqUG8dbC9uQhHpOWGjAADqk HCvWPSlsrCYQIUcJTLdWU3y hWv0WYshYrtGAMurSdYuXCN 6ZZXvfn74CSZ0WuAmt1X1NQ ZxYqLeCXKdSN1yaAtaJDSxO Z0oIHGiO5knlG5lrug6WzUe KURpUbI8MUPyxaB6Ntz1DQH gVHrgi2cdz0CqXMGyFIj9hF rsCnGpBZPnt6qrxdZaKrJsH WTbBDJqNLMmgHYvJ702d5ze w6asvzEceZD8THIdVSE3NSq fntAqqdM1TYjhmCOtAhU8RP qjmvQdVOzgrjLbjgMeBac3N OAuU939JFW8cHxgi2qoFOS6 KNDaBVHfAtKyAy9eqIWfS19 8JDLzSMTTXXLpkIp2PSVlak ZpklEsfMNSj343I761y0seR PByscZlwTqHeinzq9ujA894 XHBhcGVydzEyMjQwXHBhcGV emLT6OHOpPC5ujofkFBvaGY fxSXUuhzJ8LOUfcOPeV1BtN BQeLT3dzvfiPIO7MXywEJIq RDI7PsZxRICmg1Tpsid7SrN sxs1gim78TOI3z0PsjGqnNS P7PMK0DvZbDj8qrXVxRPCzA T7jPfRxgOPwKCOjhe84bXct ITbxlhVgiS9aBeOnBVGljPP iNOKkUB4grCUeVJKnvE7gyi xjXHBnYnJkcmhlYWRccGdic wWdEc2udDhvLAK4GKrkD6kf cN3yKcX2VDgrE8lkyY1wMPh 1PAfqrAD4RWDluO5fAD9bsj mty3amKCyrJVxtJBVgkpA4s uE6RPAobHIkL9QknR5yLIHp VV3uobfnl6yxMRJ5QVjyGYU qIHQ2YuVjFXCus6Wbngy9Zd Fhj2MpbTVjDZemY71qu356Z GRxwjXlU8yvbSZirpbqfCYk ohcsXHcspxQ0HOLfSGDvJMd uXGYxXGZzMjJcbGFuZzEwMz NcaGljaFxmMVxkYmNoXGYxX NpzI4ktXuUmUtBqUlMCyz6h s2UgIMJzogO2wTrdAFAlm8O km0CiOoIRKHWcF0NhJY8niS MlPIYsda48 [facility] Microscopic Description j9eheCPaFWWuaSXl ZjIyMDA fXFYrz7kqKVFpuCNbLlEuQt NcZnRuYmpcdWMxXGRlZmYwe 8xrh066hIAqx0jxMTHgUyC4 xDSeAWStqQOmH647UJZtROk pb9auz1ExPIHwgLJps7W0SH FJmtudrId2xDhqW06my4G8M vzeQ8rsMNOfDTPeG6SzCJ5n ELFbNcf4XLR8AFD9XIBdDDH kQ2EoYD9yFKPmoFNbJPs6r8 bpsOviSUYkAWK7h0lwCHpmf aDpJC7vqf1npJd4i9zvrmVy IJTrPCJwdIYRSZVoP7JxqYt pKx4fxUe0hFsaFbhkAVT6Ik t0DJ8zyi46otg7kAtnPBWnw qpzUbU1UAzqSOBwpgpgANm3 TPwpUEXvdQU3KNWjlPEmA2P jJGQeIL5xoxl4JYE1JLkjKD ByMoH2UHIcbNQyQBOgxHgsQ Jqkk130YHK1TmSfUW4gL2Vq d6N2dU8frNMtHKApyGDjCdP nRCIpmh7dfUZvDRhlj0ByQH V4tiC7wQIflGZhHMRpFF53Q xiso6EyJolxBQY9NXQvgmKe h0Ets3weQwVcygVzN9prJ8W yZHJoZWFkXHBnYnJkcmZvb3 Uli4OjmAHfzPe8u7tbAQXnY IJgsQnzf5fkXYW6QVLkS3N1 vARaq8igQYmvLXRsqYM5xvW 0SHYnbRZhB9HlsV8sJVWaRL 5xylm9e8dyEYI9TPvaXULgC kF7zpJ3CUMnaRJtYHYifFpk YPayc826JNI3IuIzQAImo4R aZ1RsnUjeY77jkNzgQ02wKG AirXofcH4adWialJ1mXlLxZ nMyNFxxbFxwbGFpblxmMVxm yhIoPPapboltBMByOEtvW5q xYgCzSDUslQniHHruw4KpFT QaAHXoJcYdYDXwiERwb7Uot 0QtXhRcwQQmiI1xvVxulfD6 CHCbjWCpEj3zjMUdGaVbdWB yfQ== [facility] Pathologic Diagnosis w9bnrCUoRIVggQAfKCL wNVx fydRtYFEldRBrR3TdflciHO ilBY1nWJ7wiLxtcMUipCBqQ ZUeRdPme9idc594gBGva7ie SJCBlwisuPd4w2hjHSBNcZ9 nc3k9yM30UELdtV7baDImEU sspnJoOYbkslDnbrHcRtp0L ZD0vPymYfehmZL8tGGhaFK2 FRawv6BjvLucbQrmTHJrBQT qIKR7L2qylDZ9xHKarZqfiA JyET2wv2qevBX1znNwTSX3x GosmYT0cYndtkwha1vytRM9 jYA2JXdqaFN4VFemCuGoC3p eAQApuL1gM51pN2xwSYMxvH lzCDaoKCEnjKP6WIH9QSExo 1xsZXZlbHRleHRcJzAxXCdi Zmr3a5fnXXWcnX34eZDmcpY 7fVxmMVxmczIwXGxpMzYwXG ZpMTgwfXtcbGlzdGxldmVsX YtaarTgfaAmPaCvqTS5GRhj SgNnZsQzvHW5IXhlJhVbzDK 8DTzkkHTcmOE7ASdglUA1XB b6ZFq0ADgoNQwsQsy2dTeuo VD7MPivvZ2vXXZmT47vJbTg TmYzKT67EBvgt0FtFFEbpOj rYEBkvH9rPvMtUVrnqaFbgr ZjbjIzXGxldmVsamMwXGxld bKfv4FqndSquQR9CEubaxNp dKO9qByuDGHzX7V5R631ZNv fgmBkbwJmHxDddxq7ZREcQE MgTbN1h4tnkQH4xFI2ANyxw ER6NLrpRkKaC5lrPYUiwM7h X01zT3avIAYnsAonLHgdCUJ qrNP4VCQ0ODDsu6imSQBsiE MnoHTeFcQoQFudYix4r7cfE UEtsA93aNObdlC3fUqgPXhx czIwfXtcbGlzdGxldmVsXGx qqrOldkZxDbTdgTM1SZwzFr JfCrCieXT9QMfnLwEqgOA0X DxheKBmjVA9WExlrCD4LDy9 VPm9MCpyZKjzWrk8aBnmeCO 1TYolyA2uSAPqN66pZjJmCb LyRZ20NGvcm6AdETAtiXsrH LFxtU0vUbXqCYdgvjGebeBk bjIzXGxldmVsamMwXGxldmV pf0QcomPxkXI4FFlkasCveU P1eOgqTKUnT9B3V805BKltv nSxfzAvDvOhjov8CZVxBAUv RzV0n4mimYN2iFY9FQonfWU 4CNbtDmBrU4doOXPdpY8sE0 6dV6agORGmjCpfCQucAJBmx MH7BBK5HHHoh6vsBSYfsWFb kYPuGsSvFNfzTjz0r9xtOMX meT98sKNyztN1oHrcOGhnyv IwfXtcbGlzdGxldmVsXGxld gNqzkBtOwFheQO8UYihSrSj CxWkoRE3FHiyYeJzeDI8BSz mfICioSY9XSmmdNR0FUw1OO a1ZJurOXbaBzp7uUmppEL2T UqywV4yGETvJ46xBaGwAtIc AP16JArfo1BwRQCzmLeyCQY aeO6rRzLiGAcedvRqqtHqmk IzXGxldmVsamMwXGxldmVsc 7UscwEsdDC3USfpewRftEI0 fRieWYAlU2N7V416STfzncC lizMvRkXvajj7TVVdYEHoLk N9qR64YQmidSxidI69WKErx VAhbNWinRT7AGhifGxkbJ08 ETXxvTHzPEbcy1ZuVRTlXjC 4OnVsFGHndAhxoP40DCHhcY QkV394gaAvMChyLS51RUJnu GVydzEyMjQwXHBhcGVyaDE1 ATUkIV4ktstxRXydOPytCJT efzT1PGWgxFApQ2ImJPBpBG 7hbecyUTN8EMjbHGLdYKG5E qMzWSHut2Pllub3FlPkxHFk VZdksQRjqxvdMKAjMyBlJ1Q cGOCyNLV4t71nY5yzDPZxg0 BzeTpccGFyXGxpMzYwXGZpM TapVPxpzmI3USwzduKbtJa0 kEWubLexfH5qNtbwoxUyQGM wXMDRe1GjgMJnjh7ggE7eDO TbszRFugQQZUtjW16iFXN6R LNalQquc5EtZRasAZ63iJJv ZWRccGFyfQ== [facility] Professional Interpretation Performed at: f0nrfPCgTSMnqQRsVhXlIJD dJEUyg8asGWVrwEUvJkLiTu NcZnRuYmpcdWMxXGRlZmYwe 8zvt378kRMax2nuENXcHeH1 oRKvBLYtvMKcD622LGIhFCw ao4odf2NaDNNonMScf9V5LE OTxbsorSa6tTwcA82pt1G1Y aqdL0puKVTgRQRgJ8PwVQ0g IYFeDfc8JXK2TVI1ECVjVKR sM2SyYC4zINYtpJPfLBl2g8 zcvMeyYRCiLAV7r8spJSwvp zIgRG1kmz4psMy7u7mjcuIw PMDaFJXgqZBLBLZlK4EdjNo qCm0puYo9cSfiSvbyPCV5Fk i0AA7xvx39xxf7cAwiDTNht jdoRqY4IWmcMOZwamsyMVn9 QGbpTAZutKU1VDFsfAUlN6F wCELgPR1bsbd0RIN1MFmbEX LqBvK4SLTvvUOnGGZsyQztH Mfwi725HDL3MxVyUC4wL5Lh q1C8tX9weXEsIPLodHPqDmC lPSFdsu8eqBNaOLqhu7PhQW T2hvJ3jABtmZGrQPFfEH71H eyqe9SlSntcLHJ7WNWmuxRx b3Cya0lfLsUqfhNwG0gbX9F yZHJoZWFkXHBnYnJkcmZvb3 Jxq9BexCRukPw7u2dbXRTvA FVlwGsrh8ugETC2DWCkW1R4 dMXfn1flZNxsOVMsvAV7acK 2DKFzeBLiJ3OjiX8jAHZsEG 7yrqn1s4hxMWB4ROzsEUXbU yF4qxN6ZMZldMLmLLSiuKsz VOixr450ODD6RvLhWUMxh0Y fA2CzcIgkZ82qbWhmD16gWU YdmVebbF9yhZvepJ2qJbRpX nMyNFxwYXJkXHBsYWluXGYx XGZzMjJcbGFuZzEwMzNcaGl jaFxmMVxkYmNoXGYxXGxvY2 efRkKxCzLlRqDGC9OrE7UHK cUXTY6JWLqHIHxnA4DAVXFN QQQTAG9QZ3FKIRiENs7FXIO DExbpcATrJBRpPINYJTF2DB UosDezUXAhQGJsmmHDi1c2v ZZ9xhnlW5hpnxL2YmQwPRuy YXJ9 [facility] CBC,PLATELETSon 08-11-2024 Erythrocyte distribution width (RBC) [Ratio] 13.7 % 10.8 - 14.9 % [facility] Hematocrit (Bld) [Volume fraction] 43.2 % 34.9 - 44.3 % [facility] Hemoglobin (Bld) [Mass/Vol] 14 g/dL 11.4 - 15.2 g/dL [facility] Interpretation and review of laboratory results Abnormal [facility] MCH (RBC) [Entitic mass] 29.9 pg 25.9 - 33.9 pg [facility] MCHC (RBC) [Mass/Vol] 32.4 g/dL 31.4 - 35.9 g/dL [facility] MCV (RBC) [Entitic vol] 92.1 fL 79.6 - 97.7 fL [facility] Platelet mean volume (Bld) [Entitic vol] 11.5 fL 8.5 - 12.2 fL [facility] Platelets (Bld) [#/Vol] 240 10*3/uL 150 - 393 K/uL [facility] RBC (Bld) [#/Vol] 4.69 10*6/uL [facility] WBC (Bld) [#/Vol] 11.76 10*3/uL High 3.99 - 11.19 K/uL [facility] Hematocrit (Bld) [Volume fraction] 43.2 % Normal 34.9-44.3 [facility] Comment on above: Performed By: #### T YPEC #### [facility] (DEFAULT) [address] [place] [address]304 Hemoglobin (Bld) [Mass/Vol] 14.0 g/dL Normal 11.4-15.2 [facility] Comment on above: Performed By: #### T YPEC #### [facility] (DEFAULT) [address] [place] [address]697 MCV (RBC) [Entitic vol] 92.1 fL Normal 79.6-97.7 [facility] Comment on above: Performed By: #### T YPEC #### [facility] (DEFAULT) [address] [address] Mean Cell Hgb 29.9 pg Normal 25.9-33.9 [facility] Comment on above: Performed By: #### T YPEC #### [facility] (DEFAULT) [address] [address] Mean Cell Hgb Conc 32.4 g/dL Normal 31.4-35.9 [facility] Comment on above: Performed By: #### T YPEC #### [facility] (DEFAULT) [address] [address] Platelet mean volume (Bld) [Entitic vol] 11.5 fL Normal 8.5-12.2 [facility] Comment on above: Performed By: #### T YPEC #### [facility] (DEFAULT) [address] [address] Platelets (Bld) [#/Vol] 240 10*3/uL Normal 150-393 [facility] Comment on above: Performed By: #### T YPEC #### [facility] (DEFAULT) [address] [address] RBC (Bld) [#/Vol] 4.69 10*6/uL Normal 3.91-5.04 [facility] Comment on above: Performed By: #### T YPEC #### [facility] (DEFAULT) [address] [address] RBC Distribution 13.7 % Normal 10.8-14.9 [facility] Comment on above: Performed By: #### T YPEC #### [facility] (DEFAULT) [address] [address] WBC (Bld) [#/Vol] 11.76 10*3/uL High 3.99-11.19 [facility] Comment on above: Performed By: #### T YPEC #### [facility] (DEFAULT) [address] [address] CHEM 7 (LYTES,BUN,CREA,GLUC) on 08-11-2024 Anion gap [Moles/Vol] 14 mmol/L 7 - 17 mmol/L [facility] Chloride [Moles/Vol] 103 mmol/L 98 - 10 8 mmol/L [facility] CO2 [Moles/Vol] 26 mmol/L 21 - 31 mmol/L [facility] Creatinine [Mass/Vol] 1.32 mg/dL High 0.50 - 1.20 mg/dL [facility] eGFR, CKD-EPI, Female 41 Low - PINF [facility] Glucose [Mass/Vol] 127 mg/dL 70 - 179 mg/dL [facility] Interpretation and review of laboratory results Abnormal [facility] Osmolality Calc [Osmolality] 306 High [facility] Potassium [Moles/Vol] 4.6 mmol/L 3.5 - 5.0 mmol/L [facility] Sodium [Moles/Vol] 138 mmol/L 135 - 145 mmol/L [facility] Urea nitrogen [Mass/Vol] 53 mg/dL High 7 - 25 mg/dL [facility] Urea nitrogen/Creatinine [Mass ratio] 40 mg/mg [facility] Anion gap [Moles/Vol] 14 mmol/L Normal 7-17 [facility] Comment on above: Performed By: #### [facility] #### [facility] (DEFAULT) [address] [place] [address] Chloride [Moles/Vol] 103 mmol/L Normal 98-108 [facility] Comment on above: Performed By: #### H [facility] #### [facility] (DEFAULT) [address] [place] [address] CO2 [Moles/Vol] 26 mmol/L Normal 21-31 [facility] Comment on above: Performed By: #### H [facility] #### [facility] (DEFAULT) [address] [place] [address] Creatinine [Mass/Vol] 1.32 mg/dL High 0.50-1.20 [facility] Comment on above: Performed By: #### H EMOGC #### [facility] (DEFAULT) [address] [place] [address] GFR/1.73 sq M.predicted among non-blacks MDRD (S/P/Bld) [Vol rate/Area] 41 mL/min/{1.73_m2} Low >=60 [facility] Comment on above: Result Comment: Repo rted eGFR is based on the CKD-EPI 2020 equation using creatinine, age, and sex. Performed By: #### H EMOGC #### [facility] (DEFAULT) [address] [place] [address] Glucose [Mass/Vol] 127 mg/dL Normal Nonfastin -179 mg/dL; Fastin-99 [facility] Comment on above: Performed By: #### H EMOGC #### [facility] (DEFAULT) [address] [place] [address] Osmolality [Osmolality] 306 mosm/kg High 278-305 [facility] Comment on above: Performed By: #### H EMOGC #### [facility] (DEFAULT) [address] [place] [address] Potassium [Moles/Vol] 4.6 mmol/L Normal 3.5-5.0 [facility] Comment on above: Performed By: #### H EMOGC #### [facility] (DEFAULT) [address] [place] [address] Sodium [Moles/Vol] 138 mmol/L Normal 135-145 [facility] Comment on above: Performed By: #### H EMOGC #### [facility] (DEFAULT) [address] [place] [address] Urea nitrogen [Mass/Vol] 53 mg/dL High 7-25 [facility] Comment on above: Performed By: #### H EMOGC #### [facility] (DEFAULT) [address] [place] [address] Urea nitrogen/Creatinine [Mass ratio] 40 mg/mg Normal [facility] Comment on above: Performed By: #### H [facility] #### [facility] (DEFAULT) [address] [place] [address] GLUCOSE POCon 08-11-2024 Glucose [Mass/Vol] 213 mg/dL High 70 - 179 mg/dL [facility] Interpretation and review of laboratory results Abnormal [facility] POC Sample Type CAPBL [facility] Glucose [Mass/Vol] 255 mg/dL High 70 - 179 mg/dL [facility] Interpretation and review of laboratory results Abnormal [facility] POC Sample Type CAPBL [facility] Glucose [Mass/Vol] 190 mg/dL High 70 - 179 mg/dL [facility] Interpretation and review of laboratory results Abnormal [facility] POC Sample Type CAPBL [facility] Glucose [Mass/Vol] 205 mg/dL High 70 - 179 mg/dL [facility] Interpretation and review of laboratory results Abnormal [facility] POC Sample Type CAPBL [facility] MAGNESIUMon 08-11-2024 Interpretation and review of laboratory results Normal [facility] Magnesium [Mass/Vol] 1.9 mg/dL 1.6 - 2 .6 mg/dL [facility] Magnesium [Mass/Vol] 1.9 mg/dL Normal 1.6-2.6 [facility] Comment on above: Performed By: #### [place] [address] #### [facility] (DEFAULT) [address] [place] [address] No Panel Informationon 08-11 [facility] BLOOD CULTUREon 08-10-2024 Bacteria identified Cx Nom (Unsp spec) NO GROWTH DAY 5 OF 5 Normal [facility] Comment on above: Order Comment: 2 [...] By: #### T YPEC #### [facility] (DEFAULT) [address] [place] [address] Bacteria identified Cx Nom (Unsp spec) NO GROWTH DAY 5 OF 5 Normal [facility] Comment on above: Order Comment: 2 [...] By: #### B LDCULT #### [facility] (DEFAULT) [address] [place] [id number] CBC,PLATELETSon 08-10-2024 Erythrocyte distribution width (RBC) [Ratio] 13.3 % 10.8 - 14.9 % [facility] Hematocrit (Bld) [Volume fraction] 45.1 % High 34.9 - 44.3 % [facility] Hemoglobin (Bld) [Mass/Vol] 14.1 g/dL 11.4 - 15.2 g/dL [facility] Interpretation and review of laboratory results Abnormal [facility] MCH (RBC) [Entitic mass] 29.1 pg 25.9 - 33.9 pg [facility] MCHC (RBC) [Mass/Vol] 31.3 g/dL Low 31.4 - 35.9 g/dL [facility] MCV (RBC) [Entitic vol] 93 fL 79.6 - 97.7 fL [facility] Platelet mean volume (Bld) [Entitic vol] 11.4 fL 8.5 - 12.2 fL [facility] Platelets (Bld) [#/Vol] 216 10*3/uL 150 - 393 K/uL [facility] RBC (Bld) [#/Vol] 4.85 10*6/uL [facility] WBC (Bld) [#/Vol] 13.78 10*3/uL High 3.99 - 11.19 K/uL [facility] Hematocrit (Bld) [Volume fraction] 45.1 % High 34.9-44.3 [facility] Comment on above: Performed By: #### H EMOGC #### [facility] (DEFAULT) [address] [address] Hemoglobin (Bld) [Mass/Vol] 14.1 g/dL Normal 11.4-15.2 [facility] Comment on above: Performed By: #### H EMOGC #### [facility] (DEFAULT) [address] [address] MCV (RBC) [Entitic vol] 93.0 fL Normal 79.6-97.7 O [facility] Comment on above: Performed By: #### H EMOGC #### [facility] (DEFAULT) [address] [address] Mean Cell Hgb 29.1 pg Normal 25.9-33.9 [facility] Comment on above: Performed By: #### H EMOGC #### [facility] (DEFAULT) [address] [address] Mean Cell Hgb Conc 31.3 g/dL Low 31.4-35.9 [facility] Comment on above: Performed By: #### H EMOGC #### [facility] (DEFAULT) [address] [address] Platelet mean volume (Bld) [Entitic vol] 11.4 fL Normal 8.5-12.2 [facility] Comment on above: Performed By: #### H EMOGC #### [facility] (DEFAULT) [address] [address] Platelets (Bld) [#/Vol] 216 10*3/uL Normal 150-393 [facility] Comment on above: Performed By: #### H [facility] #### [facility] (DEFAULT) [address] [place] [address] RBC (Bld) [#/Vol] 4.85 10*6/uL Normal 3.91-5.04 [facility] Comment on above: Performed By: #### H EMO #### [facility] (DEFAULT) [address] [place] [address] RBC Distribution 13.3 % Normal 10.8-14.9 [facility] Comment on above: Performed By: #### H [facility] #### [facility] (DEFAULT) [address] [place] [address] WBC (Bld) [#/Vol] 13.78 10*3/uL High 3.99-11.19 [facility] Comment on above: Performed By: #### H [facility] #### [facility] (DEFAULT) [address] [place] [id number] CHEM 7 (LYTES,BUN,CREA,GLUC) on 08-10-2024 Anion gap [Moles/Vol] 16 mmol/L 7 - 17 mmol/L [facility] Chloride [Moles/Vol] 103 mmol/L 98 - 10 8 mmol/L [facility] CO2 [Moles/Vol] 24 mmol/L 21 - 31 mmol/L [facility] Creatinine [Mass/Vol] 1.36 mg/dL High 0.50 - 1.20 mg/dL [facility] eGFR, CKD-EPI, Female 40 Low - PINF [facility] Glucose [Mass/Vol] 186 mg/dL High 70 - 179 mg/dL [facility] Interpretation and review of laboratory results Abnormal [facility] Osmolality Calc [Osmolality] 308 High [facility] Potassium [Moles/Vol] 4.9 mmol/L 3.5 - 5.0 mmol/L [facility] Sodium [Moles/Vol] 138 mmol/L 135 - 145 mmol/L [facility] Urea nitrogen [Mass/Vol] 47 mg/dL High 7 - 25 mg/dL [facility] Urea nitrogen/Creatinine [Mass ratio] 35 mg/mg [facility] Anion gap [Moles/Vol] 16 mmol/L Normal 7-17 [facility] Comment on above: Performed By: #### HEYDI PALACIOS7 ####[facility] (DEFAULT)[address] [place] [address] Chloride [Moles/Vol] 103 mmol/L Normal 98-108 [facility] Comment on above: Performed By: #### HEYDI PALACIOS7 ####[facility] (DEFAULT)[address] [facility] [place] [address] CO2 [Moles/Vol] 24 mmol/L Normal 21-31 [facility] Comment on above: Performed By: #### HEYDI PALACIOS7 ####[facility] (DEFAULT)[address] [place] [address] Creatinine [Mass/Vol] 1.36 mg/dL High 0.50-1.20 [facility] Comment on above: Performed By: #### HEYDI PALACIOS7 ####[facility] (DEFAULT)[address] [place] [address] GFR/1.73 sq M.predicted among non-blacks MDRD (S/P/Bld) [Vol rate/Area] 40 mL/min/{1.73_m2} Low >=60 [facility] Comment on above: Result Comment: Repo rted eGFR is based on the CKD-EPI 2020 equation using creatinine, age, and sex. Performed By: #### Jaiden NGUYEN CHJaiden7 ####[facility] (DEFAULT)[address] [facility] [place] [address] Glucose [Mass/Vol] 186 mg/dL High Nonfastin -179 mg/dL; Fastin-99 [facility] Comment on above: Performed By: #### Jaiden NGUYEN CHM7 ####[facility] (DEFAULT)[address] [facility] [place] [address] Osmolality [Osmolality] 308 mosm/kg High 278-305 [facility] Comment on above: Performed By: #### Jaiden NGUYEN CHM7 ####[facility] (DEFAULT)[address] [facility] [place] [address] Potassium [Moles/Vol] 4.9 mmol/L Normal 3.5-5.0 [facility] Comment on above: Performed By: #### HEYDI PALACIOS7 ####[facility] (DEFAULT)[address] [facility] [place] [address] Sodium [Moles/Vol] 138 mmol/L Normal 135-145 [facility] Comment on above: Performed By: #### HEYDI PALACIOS7 ####[facility] (DEFAULT)[address] [place] [address] Urea nitrogen [Mass/Vol] 47 mg/dL High 7-25 [facility] Comment on above: Performed By: #### HEYDI PALACIOS7 ####[facility] (DEFAULT)[address] [place] [address] Urea nitrogen/Creatinine [Mass ratio] 35 mg/mg Normal [facility] Comment on above: Performed By: #### HEYDI PALACIOS7 ####[facility] (DEFAULT)[address] [place] [address] GLUCOSE POCon 08-10-2024 Glucose [Mass/Vol] 144 mg/dL 70 - 179 mg/dL [facility] POC Sample Type CAPBL [facility] Glucose [Mass/Vol] 177 mg/dL 70 - 179 mg/dL [facility] POC Sample Type CAPBL [facility] Glucose [Mass/Vol] 180 mg/dL High 70 - 179 mg/dL [facility] Interpretation and review of laboratory results Abnormal [facility] POC Sample Type CAPBL [facility] Glucose [Mass/Vol] 193 mg/dL High 70 - 179 mg/dL [facility] Interpretation and review of laboratory results Abnormal [facility] POC Sample Type CAPBL [facility] Glucose [Mass/Vol] 200 mg/dL High 70 - 179 mg/dL [facility] Interpretation and review of laboratory results Abnormal [facility] POC Sample Type CAPBL [facility] Glucose [Mass/Vol] 198 mg/dL High 70 - 179 mg/dL [facility] Interpretation and review of laboratory results Abnormal [facility] POC [facility]UM[facility] 08-10-2024 Interpretation and review of laboratory results Normal [facility] Magnesium [Mass/Vol] 1.8 mg/dL 1.6 - 2 .6 mg/dL [facility] Magnesium [Mass/Vol] 1.8 mg/dL Normal 1.6-2.6 [facility] Comment on above: Performed By: #### [facility] ####[facility] (DEFAULT)[address] [place] [address] No Panel Informationon 08-10 [facility] URINE CULTUREOrdered By: Franklin Carcamo on 08-10-2024 Bacteria identified Cx Nom (Unsp spec) Growth [facility] Bacteria identified Cx Nom (Unsp spec) KLEBSIELLA PNEUMONIAE Abnormal [facility] Interpretation and review of laboratory results Abnormal [facility] CBC,PLATELETSon 08-09-2024 Erythrocyte distribution width (RBC) [Ratio] 13.5 % 10.8 - 14.9 % [facility] Hematocrit (Bld) [Volume fraction] 44.4 % High 34.9 - 44.3 % [facility] Hemoglobin (Bld) [Mass/Vol] 14.1 g/dL 11.4 - 15.2 g/dL [facility] Interpretation and review of laboratory results Abnormal [facility] MCH (RBC) [Entitic mass] 29.4 pg 25.9 - 33.9 pg [facility] MCHC (RBC) [Mass/Vol] 31.8 g/dL 31.4 - 35.9 g/dL [facility] MCV (RBC) [Entitic vol] 92.7 fL 79.6 - 97.7 fL [facility] Platelet mean volume (Bld) [Entitic vol] 11.5 fL 8.5 - 12.2 fL [facility] Platelets (Bld) [#/Vol] 226 10*3/uL 150 - 393 K/uL [facility] RBC (Bld) [#/Vol] 4.79 10*6/uL [facility] WBC (Bld) [#/Vol] 12.37 10*3/uL High 3.99 - 11.19 K/uL [facility] Hematocrit (Bld) [Volume fraction] 44.4 % High 34.9-44.3 [facility] Comment on above: Performed By: #### [facility] #### [facility] (DEFAULT) [address] [place] [address] Hemoglobin (Bld) [Mass/Vol] 14.1 g/dL Normal 11.4-15.2 [facility] Comment on above: Performed By: #### [facility] #### [facility] (DEFAULT) [address] [place] [address] MCV (RBC) [Entitic vol] 92.7 fL Normal 79.6-97.7 O [facility] Comment on above: Performed By: #### H [facility] #### [facility] (DEFAULT) [address] [place] [address] Mean Cell Hgb 29.4 pg Normal 25.9-33.9 [facility] Comment on above: Performed By: #### H EMOGC #### [facility] (DEFAULT) [address] [address] Mean Cell Hgb Conc 31.8 g/dL Normal 31.4-35.9 [facility] Comment on above: Performed By: #### H EMOGC #### [facility] (DEFAULT) [address] [address] Platelet mean volume (Bld) [Entitic vol] 11.5 fL Normal 8.5-12.2 [facility] Comment on above: Performed By: #### H EMOGC #### [facility] (DEFAULT) [address] [address] Platelets (Bld) [#/Vol] 226 10*3/uL Normal 150-393 [facility] Comment on above: Performed By: #### H EMOGC #### [facility] (DEFAULT) [address] [address] RBC (Bld) [#/Vol] 4.79 10*6/uL Normal 3.91-5.04 [facility] Comment on above: Performed By: #### H EMOGC #### [facility] (DEFAULT) [address] [address] RBC Distribution 13.5 % Normal 10.8-14.9 [facility] Comment on above: Performed By: #### H EMOGC #### [facility] (DEFAULT) [address] [address] WBC (Bld) [#/Vol] 12.37 10*3/uL High 3.99-11.19 [facility] Comment on above: Performed By: #### H EMOGC #### [facility] (DEFAULT) [address] [address] CHEM 7 (LYTES,BUN,CREA,GLUC) on 08-09-2024 Anion gap [Moles/Vol] 14 mmol/L 7 - 17 mmol/L [facility] Chloride [Moles/Vol] 103 mmol/L 98 - 10 8 mmol/L [facility] CO2 [Moles/Vol] 26 mmol/L 21 - 31 mmol/L [facility] Creatinine [Mass/Vol] 1.35 mg/dL High 0.50 - 1.20 mg/dL [facility] eGFR, CKD-EPI, Female 40 Low - PINF [facility] Glucose [Mass/Vol] 182 mg/dL High 70 - 179 mg/dL [facility] Interpretation and review of laboratory results Abnormal [facility] Osmolality Calc [Osmolality] 305 [facility] Potassium [Moles/Vol] 4.9 mmol/L 3.5 - 5.0 mmol/L [facility] Sodium [Moles/Vol] 138 mmol/L 135 - 145 mmol/L [facility] Urea nitrogen [Mass/Vol] 38 mg/dL High 7 - 25 mg/dL [facility] Urea nitrogen/Creatinine [Mass ratio] 28 mg/mg [facility] Anion gap [Moles/Vol] 14 mmol/L Normal 7-17 [facility] Comment on above: Performed By: #### [facility] #### [facility] (DEFAULT) [address] [place] [address] Chloride [Moles/Vol] 103 mmol/L Normal 98-108 [facility] Comment on above: Performed By: #### [facility] #### [facility] (DEFAULT) [address] [place] [address] CO2 [Moles/Vol] 26 mmol/L Normal 21-31 [facility] Comment on above: Performed By: #### [facility] #### [facility] (DEFAULT) [address] [place] [address] Creatinine [Mass/Vol] 1.35 mg/dL High 0.50-1.20 [facility] Comment on above: Performed By: #### H EMOGC #### [facility] (DEFAULT) [address] [place] [address] GFR/1.73 sq M.predicted among non-blacks MDRD (S/P/Bld) [Vol rate/Area] 40 mL/min/{1.73_m2} Low >=60 [facility] Comment on above: Result Comment: Repo rted eGFR is based on the CKD-EPI 2020 equation using creatinine, age, and sex. Performed By: #### H EMOGC #### [facility] (DEFAULT) [address] [place] [address] Glucose [Mass/Vol] 182 mg/dL High Nonfastin -179 mg/dL; Fastin-99 [facility] Comment on above: Performed By: #### H EMOGC #### [facility] (DEFAULT) [address] [place] [address] Osmolality [Osmolality] 305 mosm/kg Normal 278-305 [facility] Comment on above: Performed By: #### H EMOGC #### [facility] (DEFAULT) [address] [place] [address] Potassium [Moles/Vol] 4.9 mmol/L Normal 3.5-5.0 [facility] Comment on above: Performed By: #### H EMOGC #### [facility] (DEFAULT) [address] [place] [address] Sodium [Moles/Vol] 138 mmol/L Normal 135-145 [facility] Comment on above: Performed By: #### H EMOGC #### [facility] (DEFAULT) [address] [place] [address] Urea nitrogen [Mass/Vol] 38 mg/dL High 7-25 [facility] Comment on above: Performed By: #### H EMOGC #### [facility] (DEFAULT) [address] [place] [address] Urea nitrogen/Creatinine [Mass ratio] 28 mg/mg Normal [facility] Comment on above: Performed By: #### [facility] #### [facility] (DEFAULT) [address] [place] [address] EXTRA MICROon 08-09-2024 [facility] GLUCOSE POCon 08-09-2024 Glucose [Mass/Vol] 186 mg/dL High 70 - 179 mg/dL [facility] Interpretation and review of laboratory results Abnormal [facility] POC Sample [facility] Glucose [Mass/Vol] 255 mg/dL High 70 - 179 mg/dL [facility] Interpretation and review of laboratory results Abnormal [facility] POC Sample Type CAPBL [facility] Glucose [Mass/Vol] 235 mg/dL High 70 - 179 mg/dL [facility] Interpretation and review of laboratory results Abnormal [facility] POC Sample Type CAPBL [facility] Glucose [Mass/Vol] 167 mg/dL 70 - 179 mg/dL [facility] POC Sample Type CAPBL [facility] INTERVENTIONAL UPPER ENDOSCO PYon 08-09-2024 Body surface area Derived from formula 1.9 m2 [facility] LAB, [facility] Radiology Study observation (narrative) [facility] MAGNESIUMon 08-09-2024 Interpretation and review of laboratory results Normal [facility] Magnesium [Mass/Vol] 1.8 mg/dL 1.6 - 2 .6 mg/dL [facility] Magnesium [Mass/Vol] 1.8 mg/dL Normal 1.6-2.6 [facility] Comment on above: Performed By: #### [facility] #### [facility] (DEFAULT) [address] [place] [address] No Panel Informationon 08-09 [facility] PT,INR,PTTon 08-09-2024 aPTT Coag (PPP) [Time] 38.4 s High [facility] INR Coag (Bld) [Relative time] 1 {INR} 0.9 - 1.1 [facility] Interpretation and review of laboratory results Abnormal [facility] PT Coag (PPP) [Time] 13 s [facility] aPTT Coag (Bld) [Time] 38.4 s High 24.0-34.3 [facility] Comment on above: Performed By: #### B LDCULT #### [facility] (DEFAULT) [address] [address] INR Coag (PPP) [Relative time] 1.0 {INR} Normal 0.9-1.1 [facility] Comment on above: Performed By: #### B LDCULT #### [facility] (DEFAULT) [address] [place] [address] PT Coag (PPP) [Time] 13.0 s Normal 11.9-14.2 [facility] Comment on above: Performed By: #### B LDCULT #### [facility] (DEFAULT) [address] [address] SURG PATH REQUESTon 08-10-19 Case Report [facility] Comment on above: Result Comment: Surg ical Pathology Report Case: [id number] Authorizing Provider: Judson Keith DO Collected: 08/09/2024 10:07 AM Ordering Location: [facility] Received: 08/09/2024 12:13 PM Pathologist: Renae Glez MD Specimen: STOMACH, gastric, r/o HP Performed By: #### S URGP #### [facility] (DEFAULT) [address] [address] Clinical History R/O HP. Associated Diagnosis: None. Medical History: No medical history provided. Normal [facility] Comment on above: Performed By: #### S URGP #### [facility] (DEFAULT) [address] [place] [address] Gross Description Normal [facility] Comment on above: Result Comment: The specimen is received in one properly labeled container with the patient's name and accession number. A. The specimen is designated "gastric, r/o hp" and consists of five fragments of jackson-pink soft tissue, from 0.2 up to 0.6 cm in greatest dimension. TE 1 Lab Use Only: JobID [id number] Grosser for this case was: Sunshine Hidalgo Performed By: #### S URGP #### [facility] (DEFAULT) [address] [place] [address] Microscopic Description A microscopic examination was performed. [facility] Comment on above: Performed By: #### S URGP #### [facility] (DEFAULT) [address] [address] Pathologic Diagnosis [facility] Comment on above: Result Comment: Anjelica echols, biopsy: Focal erosion No Helicobacter pylori identified at 1005 EDT Performed By: #### S URGP #### [facility] (DEFAULT) [address] [place] [address] Professional Interpretation Performed at: [facility] Comment on above: Result Comment: [facility] For Immediate Release to Patient's [facility]? Yes [address] [place] [address] Performed By: #### S URGP #### [facility] (DEFAULT) [address] [address] CBC,PLATELETSon 08-08-2024 Erythrocyte distribution width (RBC) [Ratio] 13.6 % 10.8 - 14.9 % [facility] Hematocrit (Bld) [Volume fraction] 45.7 % High 34.9 - 44.3 % [facility] Hemoglobin (Bld) [Mass/Vol] 14.4 g/dL 11.4 - 15.2 g/dL [facility] Interpretation and review of laboratory results Abnormal [facility] MCH (RBC) [Entitic mass] 29.4 pg 25.9 - 33.9 pg [facility] MCHC (RBC) [Mass/Vol] 31.5 g/dL 31.4 - 35.9 g/dL [facility] MCV (RBC) [Entitic vol] 93.3 fL 79.6 - 97.7 fL [facility] Platelet mean volume (Bld) [Entitic vol] 10.9 fL 8.5 - 12.2 fL [facility] Platelets (Bld) [#/Vol] 212 10*3/uL 150 - 393 K/uL [facility] RBC (Bld) [#/Vol] 4.9 10*6/uL [facility] WBC (Bld) [#/Vol] 10.39 10*3/uL 3.99 - 11.19 K/uL [facility] Hematocrit (Bld) [Volume fraction] 45.7 % High 34.9-44.3 [facility] Comment on above: Performed By: #### [facility] #### [facility] (DEFAULT) [address] [address] Hemoglobin (Bld) [Mass/Vol] 14.4 g/dL Normal 11.4-15.2 [facility] Comment on above: Performed By: #### H EMO #### [facility] (DEFAULT) [address] [address] MCV (RBC) [Entitic vol] 93.3 fL Normal 79.6-97.7 O [facility] Comment on above: Performed By: #### H EMOGC #### [facility] (DEFAULT) [address] [address] Mean Cell Hgb 29.4 pg Normal 25.9-33.9 [facility] Comment on above: Performed By: #### H EMOGC #### [facility] (DEFAULT) [address] [address] Mean Cell Hgb Conc 31.5 g/dL Normal 31.4-35.9 [facility] Comment on above: Performed By: #### H EMOGC #### [facility] (DEFAULT) [address] [place] [address] Platelet mean volume (Bld) [Entitic vol] 10.9 fL Normal 8.5-12.2 [facility] Comment on above: Performed By: #### H EMOGC #### [facility] (DEFAULT) [address] [place] [address] Platelets (Bld) [#/Vol] 212 10*3/uL Normal 150-393 [facility] Comment on above: Performed By: #### H EMO #### [facility] (DEFAULT) [address] [place] [address] RBC (Bld) [#/Vol] 4.90 10*6/uL Normal 3.91-5.04 [facility] Comment on above: Performed By: #### H EMO #### [facility] (DEFAULT) [address] [place] [address] RBC Distribution 13.6 % Normal 10.8-14.9 [facility] Comment on above: Performed By: #### H EMO #### [facility] (DEFAULT) [address] [place] [address] WBC (Bld) [#/Vol] 10.39 10*3/uL Normal 3.99-11.19 [facility] Comment on above: Performed By: #### H EMOGC #### [facility] (DEFAULT) [address] [place] [address] CHEM 7 (LYTES,BUN,CREA,GLUC) on 08-08-2024 Anion gap [Moles/Vol] 15 mmol/L 7 - 17 mmol/L [facility] Chloride [Moles/Vol] 104 mmol/L 98 - 10 8 mmol/L [facility] CO2 [Moles/Vol] 25 mmol/L 21 - 31 mmol/L [facility] Creatinine [Mass/Vol] 1.15 mg/dL 0.50 - 1.20 mg/dL [facility] eGFR, CKD-EPI, Female 48 Low - PINF [facility] Glucose [Mass/Vol] 111 mg/dL 70 - 179 mg/dL [facility] Interpretation and review of laboratory results Abnormal [facility] Osmolality Calc [Osmolality] 302 [facility] Potassium [Moles/Vol] 4.3 mmol/L 3.5 - 5.0 mmol/L [facility] Sodium [Moles/Vol] 140 mmol/L 135 - 145 mmol/L [facility] Urea nitrogen [Mass/Vol] 35 mg/dL High 7 - 25 mg/dL [facility] Urea nitrogen/Creatinine [Mass ratio] 30 mg/mg [facility] Anion gap [Moles/Vol] 15 mmol/L Normal 7-17 [facility] Comment on above: Performed By: #### HEYDI PALACIOS7 ####[facility] (DEFAULT)[address] [place] [address] Chloride [Moles/Vol] 104 mmol/L Normal 98-108 [facility] Comment on above: Performed By: #### HEYDI PALACIOS7 ####[facility] (DEFAULT)[address] [place] [address] CO2 [Moles/Vol] 25 mmol/L Normal 21-31 [facility] Comment on above: Performed By: #### HEYDI PALACIOS7 ####[facility] (DEFAULT)[address] [place] [address] Creatinine [Mass/Vol] 1.15 mg/dL Normal 0.50-1.20 [facility] Comment on above: Performed By: #### Jaiden NGUYEN CHM7 ####[facility] (DEFAULT)[address] [place] [address] GFR/1.73 sq M.predicted among non-blacks MDRD (S/P/Bld) [Vol rate/Area] 48 mL/min/{1.73_m2} Low >=60 [facility] Comment on above: Result Comment: Repo rted eGFR is based on the CKD-EPI 2020 equation using creatinine, age, and sex. Performed By: #### HEDYI PALACIOS7 ####[facility] (DEFAULT)[address] [place] [address] Glucose [Mass/Vol] 111 mg/dL Normal Nonfastin -179 mg/dL; Fastin-99 [facility] Comment on above: Performed By: #### CAMERON PALACIOS ####[facility] (DEFAULT)[address] [place] [address] Osmolality [Osmolality] 302 mosm/kg Normal 278-305 [facility] Comment on above: Performed By: #### CAMERON PALACIOS ####[facility] (DEFAULT)[address] [place] [address] Potassium [Moles/Vol] 4.3 mmol/L Normal 3.5-5.0 [facility] Comment on above: Performed By: #### CAMERON PALACIOS ####[facility] (DEFAULT)[address] [place] [address] Sodium [Moles/Vol] 140 mmol/L Normal 135-145 [facility] Comment on above: Performed By: #### HEYDI PALACIOS7 ####[facility] (DEFAULT)[address] [place] [address] Urea nitrogen [Mass/Vol] 35 mg/dL High 7-25 [facility] Comment on above: Performed By: #### HEYDI PALACIOS7 ####[facility] (DEFAULT)[address] [place] [address] Urea nitrogen/Creatinine [Mass ratio] 30 mg/mg Normal [facility] Comment on above: Performed By: #### HEYDI PALACIOS7 ####[facility] (DEFAULT)[address] [place] [address] CT HEAD WITHOUT CONTRASTon 0 08-08-2024 CT [...] have reviewed and approved this report. Normal [facility] CT Head WO contraston 2024 [facility] Rad[facility] Study observation (narrative) [facility] GLUCOSE POCon 08-08-2024 Glucose [Mass/Vol] 150 mg/dL 70 - 179 mg/dL [facility] POC Sample Type CAPBL [facility] Glucose [Mass/Vol] 148 mg/dL 70 - 179 mg/dL [facility] Glucose [Mass/Vol] 192 mg/dL High 70 - 179 mg/dL [facility] Interpretation and review of laboratory results Abnormal [facility] POC Sample Type [facility]BL [facility] Glucose [Mass/Vol] 198 mg/dL High 70 - 179 mg/dL [facility] Interpretation and review of laboratory results Abnormal [facility] Glucose [Mass/Vol] 186 mg/dL High 70 - 179 mg/dL [facility] Interpretation and review of laboratory results Abnormal [facility] POC Sample Type CAPBL [facility] MAGNESIUMon 08-08-2024 Interpretation and review of laboratory results Normal [facility] Magnesium [Mass/Vol] 1.7 mg/dL 1.6 - 2 .6 mg/dL [facility] Magnesium [Mass/Vol] 1.7 mg/dL Normal 1.6-2.6 [facility] Comment on above: Performed By: #### [facility] ####[facility] (DEFAULT)[address] [place] [address] No Panel Informationon 08-08 [facility] URINALYSIS REFLEX TO CULTURE PERFORMABLEOrdered By: Danya Yates on 08-08-2024 Appearance (U) Cloudy Abnormal Clear [facility] Bacteria LM Ql (Urine sed) PRESENT Abnormal ABSENT [facility] Color (U) Yellow Yellow [facility] Epithelial cells.squamous LM Ql (Urine sed) 0-2/hpf 0-2/hpf, 3-5/hpf = 1+ [facility] Glucose Test strip (U) [Mass/Vol] Negative Negative [facility] Interpretation and review of laboratory results Abnormal [facility] Ketones (U) [Mass/Vol] Trace Abnormal Negative OS [facility] Leukocyte esterase Test strip Ql (U) Large Abnormal Negative U [facility] Nitrite Ql (U) Positive Abnormal Negative [facility] pH (U) 7.0 [pH] 5.0 - 7.0 [facility] Protein (U) [Mass/Vol] Trace Abnormal Negative OS [facility] RBC (U) [#/Vol] Trace Abnormal Negative [facility] RBC LM.HPF (Urine sed) [#/Area] 6-10 Abnormal [facility] Specific gravity (U) [Rel density] 1.023 1.001 - 1.035 [facility] Urobilinogen (U) [Mass/Vol] 1.0 E.U./dL 0.2 E.U/dL, 1.0 E.U/dL [facility] WBC LM.HPF (Urine sed) [#/Area] /[HPF] Abnormal [facility] URINALYSIS REFLEX TO CULTURE PERFORMABLEon 08-08-2024 Appearance (U) Cloudy Abnormal Clear [facility] Comment on above: Order Comment: For i ndwelling catheters, specimen collection is acceptable on catheter day 1 and 2 only. ? Performed By: #### T YPEC #### [facility] (DEFAULT) [address] [place] [address] Bacteria PRESENT Abnormal ABSENT [facility] Comment on above: Order Comment: For i ndwelling catheters, specimen collection is acceptable on catheter day 1 and 2 only. ? Performed By: #### T YPEC #### [facility] (DEFAULT) [address] [place] [address] Blood Urine Trace Abnormal Negative [facility] Comment on above: Order Comment: For i ndwelling catheters, specimen collection is acceptable on catheter day 1 and 2 only. ? Performed By: #### T YPEC #### [facility] (DEFAULT) [address] [place] [address] Color (U) Yellow Normal Yellow [facility] Comment on above: Order Comment: For i ndwelling catheters, specimen collection is acceptable on catheter day 1 and 2 only. ? Performed By: #### T YPEC #### [facility] (DEFAULT) [address] [place] [address] Glucose Ql (U) Negative Normal Negative [facility] Comment on above: Order Comment: For i ndwelling catheters, specimen collection is acceptable on catheter day 1 and 2 only. ? Performed By: #### T YPEC #### [facility] (DEFAULT) [address] [place] [address] Ketones Ql (U) Trace Abnormal Negative [facility] Comment on above: Order Comment: For i ndwelling catheters, specimen collection is acceptable on catheter day 1 and 2 only. ? Performed By: #### T YPEC #### [facility] (DEFAULT) [address] [place] [address] Leukocyte esterase Test strip Ql (U) Large Abnormal Negative [facility] Comment on above: Order Comment: For i ndwelling catheters, specimen collection is acceptable on catheter day 1 and 2 only. ? Performed By: #### T YPEC #### [facility] (DEFAULT) [address] [place] [address] Nitrites Urine Positive Abnormal Negative [facility] Comment on above: Order Comment: For i ndwelling catheters, specimen collection is acceptable on catheter day 1 and 2 only. ? Performed By: #### T YPEC #### [facility] (DEFAULT) [address] [place] [address] pH (U) 7.0 [pH] Normal 5.0-7.0 [facility] Comment on above: Order Comment: For i ndwelling catheters, specimen collection is acceptable on catheter day 1 and 2 only. ? Performed By: #### T YPEC #### [facility] (DEFAULT) [address] [place] [address] Protein Urine Trace Abnormal Negative [facility] Comment on above: Order Comment: For i ndwelling catheters, specimen collection is acceptable on catheter day 1 and 2 only. ? Performed By: #### T YPEC #### [facility] (DEFAULT) [address] [address] RBC Urine 6-10 Abnormal 0-2 [facility] Comment on above: Order Comment: For i ndwelling catheters, specimen collection is acceptable on catheter day 1 and 2 only. ? Performed By: #### T YPEC #### [facility] (DEFAULT) [address] [address] Specific [place] Urine 1.023 Normal 1.001-1.035 O [facility] Comment on above: Order Comment: For i ndwelling catheters, specimen collection is acceptable on catheter day 1 and 2 only. ? Performed By: #### T YPEC #### [facility] (DEFAULT) [address] [address] Squamous/Epithelial Cells, Urine 0-2/hpf Normal 0-2/hpf, 3-5/hpf = 1+ [facility] Comment on above: Order Comment: For i ndwelling catheters, specimen collection is acceptable on catheter day 1 and 2 only. ? Performed By: #### T YPEC #### [facility] (DEFAULT) [address] [address] Urobilinogen Urine 1.0 E.U./dL Normal 0.2 E.U/d L, 1.0 E.U/dL [facility] Comment on above: Order Comment: For i ndwelling catheters, specimen collection is acceptable on catheter day 1 and 2 only. ? Performed By: #### T YPEC #### [facility] (DEFAULT) [address] [address] WBC LM.HPF (Urine sed) [#/Area] /[HPF] Abnormal 0 - 5 [facility] Comment on above: Order Comment: For i ndwelling catheters, specimen collection is acceptable on catheter day 1 and 2 only. ? Performed By: #### T YPEC #### [facility] (DEFAULT) [address] [address] URINE CULTUREon 08-08-2024 Amikacin [Susceptibility] <= Invalid Interpretation Code [facility] Comment on above: Order Comment: For [...] By: #### T YPEC #### [facility] (DEFAULT) [address] [place] [address] Ampicillin [Susceptibility] >=32 Resistant [facility] Comment on above: Order Comment: For [...] Performed By: #### T YPEC #### [facility] (DEFAULT) [address] [address] Ampicillin+Sulbactam [Susceptibility] >=32 Resistant [facility] Comment on above: Order Comment: For [...] By: #### T YPEC #### [facility] (DEFAULT) [address] [address] ceFAZolin [Susceptibility] >= Resistant [facility] Comment on above: Order Comment: For [...] By: #### T YPEC #### [facility] (DEFAULT) [address] [address] Cefepime [Susceptibility] <= Invalid Interpretation Code [facility] Comment on above: Order Comment: For [...] By: #### T YPEC #### [facility] (DEFAULT) [address] [address] cefTRIAXone [Susceptibility] <= Invalid Interpretation Code [facility] Comment on above: Order Comment: For [...] By: #### T YPEC #### [facility] (DEFAULT) [address] [address] Ciprofloxacin [Susceptibility] >= Resistant [facility] Comment on above: Order Comment: For [...] By: #### T YPEC #### [facility] (DEFAULT) [address] [address] Ertapenem [Susceptibility] <= Invalid Interpretation Code [facility] Comment on above: Order Comment: For [...] By: #### T YPEC #### [facility] (DEFAULT) [address] [address] Gentamicin [Susceptibility] <= Invalid Interpretation Code [facility] Comment on above: Order Comment: For [...] Performed By: #### T YPEC #### U [facility] (DEFAULT) [address] [address] levoFLOXacin [Susceptibility] >= Resistant [facility] Comment on above: Order Comment: For [...] Performed By: #### T YPEC #### U [facility] (DEFAULT) [address] [address] Nitrofurantoin [Susceptibility] 128 ug/mL Resistant [facility] Comment on above: Order Comment: For [...] Performed By: #### T YPEC #### U [facility] (DEFAULT) [address] [address] Piperacillin+Tazobactam [Susceptibility] 8 ug/mL Invalid Interpretation Code [facility] Comment on above: Order Comment: For [...] By: #### T YPEC #### [facility] (DEFAULT) [address] [address] Trimethoprim+Sulfametho xazole [Susceptibility] <= Invalid Interpretation Code [facility] Comment on above: Order Comment: For [...] By: #### T YPEC #### [facility] (DEFAULT) [address] [place] [address] CBC,PLATELETSon 08-07-2024 Erythrocyte distribution width (RBC) [Ratio] 13.9 % 10.8 - 14.9 % [facility] Hematocrit (Bld) [Volume fraction] 43.1 % 34.9 - 44.3 % [facility] Hemoglobin (Bld) [Mass/Vol] 13.7 g/dL 11.4 - 15.2 g/dL [facility] Interpretation and review of laboratory results Abnormal [facility] MCH (RBC) [Entitic mass] 29.6 pg 25.9 - 33.9 pg [facility] MCHC (RBC) [Mass/Vol] 31.8 g/dL 31.4 - 35.9 g/dL [facility] MCV (RBC) [Entitic vol] 93.1 fL 79.6 - 97.7 fL [facility] Platelet mean volume (Bld) [Entitic vol] 11.1 fL 8.5 - 12.2 fL [facility] Platelets (Bld) [#/Vol] 214 10*3/uL 150 - 393 K/uL [facility] RBC (Bld) [#/Vol] 4.63 10*6/uL [facility] WBC (Bld[facility] [#/Vol] 11.3 10*3/uL High 3.99 - 11.19 K/uL [facility] CHEM 7 (LYTES,BUN,CREA,GLUC) on 08-07-2024 Anion gap [Moles/Vol] 13 mmol/L 7 - 17 mmol/L [facility] Chloride [Moles/Vol] 105 mmol/L 98 - 10 8 mmol/L [facility] CO2 [Moles/Vol] 28 mmol/L 21 - 31 mmol/L [facility] Creatinine [Mass/Vol] 1.19 mg/dL 0.50 - 1.20 mg/dL [facility] eGFR, CKD-EPI, Female 47 Low - PINF [facility] Glucose [Mass/Vol] 90 mg/dL 70 - 179 mg/dL [facility] Interpretation and review of laboratory results Abnormal [facility] Osmolality Calc [Osmolality] 304 [facility] Potassium [Moles/Vol] 4.2 mmol/L 3.5 - 5.0 mmol/L [facility] Sodium [Moles/Vol] 142 mmol/L 135 - 145 mmol/L [facility] Urea nitrogen [Mass/Vol] 34 mg/dL High 7 - 25 mg/dL [facility] Urea nitrogen/Creatinine [Mass ratio] 29 mg/mg [facility] GLUCOSE POCon 08-07-2024 Glucose [Mass/Vol] 185 mg/dL High 70 - 179 mg/dL [facility] Interpretation and review of laboratory results Abnormal [facility] POC Sample Type CAPBL [facility] Glucose [Mass/Vol] 106 mg/dL 70 - 179 mg/dL [facility] POC Sample Type CAPBL [facility] Glucose [Mass/Vol] 104 mg/dL 70 - 179 mg/dL [facility] POC Sample Type CAPBL [facility] MAGNESIUMon 08-07-2024 Interpretation and review of laboratory results Normal [facility] Magnesium [Mass/Vol] 1.8 mg/dL 1.6 - 2 .6 mg/dL [facility] No Panel Informationon 08-07 [facility] CBC,PLATELETSon 08-06-2024 Hematocrit (Bld) [Volume fraction] 43.1 % Normal 34.9-44.3 [facility] Comment on above: Performed By: #### X M #### [facility] (DEFAULT) [address] [address] Hemoglobin (Bld) [Mass/Vol] 13.7 g/dL Normal 11.4-15.2 [facility] Comment on above: Performed By: #### X M #### [facility] (DEFAULT) [address] [address] MCV (RBC) [Entitic vol] 93.1 fL Normal 79.6-97.7 O [facility] Comment on above: Performed By: #### X M #### [facility] (DEFAULT) [address] [address] Mean Cell Hgb 29.6 pg Normal 25.9-33.9 [facility] Comment on above: Performed By: #### X M #### [facility] (DEFAULT) [address] [address] Mean Cell Hgb Conc 31.8 g/dL Normal 31.4-35.9 [facility] Comment on above: Performed By: #### X M #### [facility] (DEFAULT) [address] [address] Platelet mean volume (Bld) [Entitic vol] 11.1 fL Normal 8.5-12.2 [facility] Comment on above: Performed By: #### X M #### [facility] (DEFAULT) [address] [place] [address] Platelets (Bld) [#/Vol] 214 10*3/uL Normal 150-393 [facility] Comment on above: Performed By: #### X M #### [facility] (DEFAULT) [address] [place] [address] RBC (Bld) [#/Vol] 4.63 10*6/uL Normal 3.91-5.04 [facility] Comment on above: Performed By: #### X M #### [facility] (DEFAULT) [address] [place] [address] RBC Distribution 13.9 % Normal 10.8-14.9 [facility] Comment on above: Performed By: #### X M #### [facility] (DEFAULT) [address] [place] [address] WBC (Bld) [#/Vol] 11.30 10*3/uL High 3.99-11.19 [facility] Comment on above: Performed By: #### X M #### [facility] (DEFAULT) [address] [place] [address] Erythrocyte distribution width (RBC) [Ratio] 13.9 % 10.8 - 14.9 % [facility] Hematocrit (Bld) [Volume fraction] 44 % 34.9 - 44.3 % [facility] Hemoglobin (Bld) [Mass/Vol] 13.9 g/dL 11.4 - 15.2 g/dL [facility] Interpretation and review of laboratory results Abnormal [facility] MCH (RBC) [Entitic mass] 29.1 pg 25.9 - 33.9 pg [facility] MCHC (RBC) [Mass/Vol] 31.6 g/dL 31.4 - 35.9 g/dL [facility] MCV (RBC) [Entitic vol] 92.2 fL 79.6 - 97.7 fL [facility] Platelet mean volume (Bld) [Entitic vol] 10.7 fL 8.5 - 12.2 fL [facility] Platelets (Bld) [#/Vol] 216 10*3/uL 150 - 393 K/uL [facility] RBC (Bld) [#/Vol] 4.77 10*6/uL [facility] WBC (Bld) [#/Vol] 12.14 10*3/uL High 3.99 - 11.19 K/uL [facility] CHEM 7 (LYTES,BUN,CREA,GLUC) on 08-06-2024 Anion gap [Moles/Vol] 13 mmol/L Normal 7-17 [facility] Comment on above: Performed By: #### Jaiden NGUYEN CHM7 ####[facility] (DEFAULT)[address] [facility] [place] [address] Chloride [Moles/Vol] 105 mmol/L Normal 98-108 [facility] Comment on above: Performed By: #### Jaiden NGUYEN CHM7 ####[facility] (DEFAULT)[address] [place] [address] CO2 [Moles/Vol] 28 mmol/L Normal 21-31 [facility] Comment on above: Performed By: #### Jaiden NGUYEN CHM7 ####[facility] (DEFAULT)[address] [place] [address] Creatinine [Mass/Vol] 1.19 mg/dL Normal 0.50-1.20 [facility] Comment on above: Performed By: #### Jaiden NGUYEN CHM7 ####[facility] (DEFAULT)[address] [place] [address] GFR/1.73 sq M.predicted among non-blacks MDRD (S/P/Bld) [Vol rate/Area] 47 mL/min/{1.73_m2} Low >=60 [facility] Comment on above: Result Comment: Repo rted eGFR is based on the CKD-EPI 2020 equation using creatinine, age, and sex. Performed By: #### HEYDI PALACIOS7 ####[place] [facility] (DEFAULT)[address] [place] [address] Glucose [Mass/Vol] 90 mg/dL Normal Nonfastin -179 mg/dL; Fastin-99 [facility] Comment on above: Performed By: #### HEYDI PALACIOS7 ####[facility] (DEFAULT)[address] [place] [address] Osmolality [Osmolality] 304 mosm/kg Normal 278-305 [facility] Comment on above: Performed By: #### HEYDI PALACIOS7 ####[facility] (DEFAULT)[address] [place] [address] Potassium [Moles/Vol] 4.2 mmol/L Normal 3.5-5.0 [facility] Comment on above: Performed By: #### CAMERON PALACIOS ####[facility] (DEFAULT)[address] [place] [address] Sodium [Moles/Vol] 142 mmol/L Normal 135-145 [facility] Comment on above: Performed By: #### CAMERON PALACIOS ####[facility] (DEFAULT)[address] [place] [address] Urea nitrogen [Mass/Vol] 34 mg/dL High 7-25 [facility] Comment on above: Performed By: #### CAMERON PALACIOS ####[facility] (DEFAULT)[address] [place] [address] Urea nitrogen/Creatinine [Mass ratio] 29 mg/mg Normal [facility] Comment on above: Performed By: #### HEYDI PALACIOS7 ####[facility] (DEFAULT)[address] [place] [address] Anion gap [Moles/Vol] 14 mmol/L 7 - 17 mmol/L [facility] Chloride [Moles/Vol] 107 mmol/L 98 - 10 8 mmol/L [facility] CO2 [Moles/Vol] 27 mmol/L 21 - 31 mmol/L [facility] Creatinine [Mass/Vol] 1.19 mg/dL 0.50 - 1.20 mg/dL [facility] eGFR, CKD-EPI, Female 47 Low - PINF [facility] Glucose [Mass/Vol] 88 mg/dL 70 - 179 mg/dL [facility] Interpretation and review of laboratory results Abnormal [facility] Osmolality Calc [Osmolality] 307 High [facility] Potassium [Moles/Vol] 3.9 mmol/L 3.5 - 5.0 mmol/L [facility] Sodium [Moles/Vol] 144 mmol/L 135 - 145 mmol/L [facility] Urea nitrogen [Mass/Vol] 34 mg/dL High 7 - 25 mg/dL [facility] Urea nitrogen/Creatinine [Mass ratio] 29 mg/mg [facility] GLUCOSE POCon 08-06-2024 Glucose [Mass/Vol] 166 mg/dL 70 - 179 mg/dL [facility] Glucose [Mass/Vol] 106 mg/dL 70 - 179 mg/dL [facility] Glucose [Mass/Vol] 100 mg/dL 70 - 179 mg/dL [facility] POC Sample Type VENO [facility] Glucose [Mass/Vol] 219 mg/dL High 70 - 179 mg/dL [facility] Interpretation and review of laboratory results Abnormal [facility] Glucose [Mass/Vol] 249 mg/dL High 70 - 179 mg/dL [facility] Glucose [Mass/Vol] 178 mg/dL 70 - 179 mg/dL [facility] Glucose [Mass/Vol] 194 mg/dL High 70 - 179 mg/dL [facility] Glucose [Mass/Vol] 93 mg/dL 70 - 179 mg/dL [facility] POC Sample Type VENO [facility] IONIZED CALCIUM, WHOLE BLOOD Ordered By: Zuleika Blunt on 08-06-2024 Calcium.ionized (Bld) [Moles/Vol] 4.72 mg/dL 4.60 - 5.30 mg/dL [facility] Interpretation and review of laboratory results Normal [facility] MAGNESIUMon 08-06-2024 Magnesium [Mass/Vol] 1.8 mg/dL Normal 1.6-2.6 [facility] Comment on above: Performed By: #### [facility] ####[facility] (DEFAULT)[address] [place] [address] Magnesium [Mass/Vol] 2.4 mg/dL 1.6 - 2 .6 mg/dL [facility] No Panel Informationon 08-06 POC Sample Type [facility] Interpretation and review of laboratory results Abnormal [facility] POC Sample Type [facility] Interpretation and review of laboratory results Normal [facility] PHOSPHATE, INORGANICon 08-06 Phosphate [Mass/Vol] 3.2 mg/dL 2.2 - 4 .6 mg/dL [facility] RF videography Hypopharynx a nd Esophagus Views W liquid and paste contrast PO during swallowingon 08-06-2024 RADIOLOGY RADIOLOGY [facility] Radiology Study observation (narrative) [facility] RF videography Hypopharynx a nd Esophagus Views W liquid and paste contrast PO during swallowingOrdered By: Gerry Resendez on 08-06-2024 [facility] Work Phone: SPEECH MODIFIED BARIUM SWALL OWon 08-06-2024 [facility] XR FLUORO MODIFIED BARIUM SW ALLOW [...] for specific therapeutic recommendations, please see the animal handler report of the speech pathologist. Examination performed by ARCADIO Nicole, under the direct supervision of Gerry Resendez M.D., who was immediately available on site during the examination. I personally viewed and interpreted these images and I have reviewed and approved this report. Normal [facility] CBC,PLATELETSon 08-05-2024 Hematocrit (Bld) [Volume fraction] 44.0 % Normal 34.9-44.3 [facility] Comment on above: Performed By: #### B LDCULT #### [facility] [facility] (DEFAULT) [address] [address] Hemoglobin (Bld) [Mass/Vol] 13.9 g/dL Normal 11.4-15.2 [facility] Comment on above: Performed By: #### B LDCULT #### [facility] (DEFAULT) [address] [place] [address] MCV (RBC) [Entitic vol] 92.2 fL Normal 79.6-97.7 O [facility] Comment on above: Performed By: #### B LDCULT #### [facility] (DEFAULT) [address] [address] Mean Cell Hgb 29.1 pg Normal 25.9-33.9 [facility] Comment on above: Performed By: #### B LDCULT #### [facility] (DEFAULT) [address] [address] Mean Cell Hgb Conc 31.6 g/dL Normal 31.4-35.9 [facility] Comment on above: Performed By: #### B LDCULT #### [facility] (DEFAULT) [address] [place] [address] Platelet mean volume (Bld) [Entitic vol] 10.7 fL Normal 8.5-12.2 [facility] Comment on above: Performed By: #### B LDCULT #### [facility] (DEFAULT) [address] [address] Platelets (Bld) [#/Vol] 216 10*3/uL Normal 150-393 [facility] Comment on above: Performed By: #### B LDCULT #### [facility] (DEFAULT) [address] [place] [address] RBC (Bld) [#/Vol] 4.77 10*6/uL Normal 3.91-5.04 [facility] Comment on above: Performed By: #### B LDCULT #### [facility] (DEFAULT) [address] [address] RBC Distribution 13.9 % Normal 10.8-14.9 [facility] Comment on above: Performed By: #### B LDCULT #### [facility] (DEFAULT) [address] [place] [address] WBC (Bld) [#/Vol] 12.14 10*3/uL High 3.99-11.19 [facility] Comment on above: Performed By: #### B LDCULT #### [facility] (DEFAULT) [address] [address] Erythrocyte distribution width (RBC) [Ratio] 13.9 % 10.8 - 14.9 % [facility] Hematocrit (Bld) [Volume fraction] 39.6 % 34.9 - 44.3 % [facility] Hemoglobin (Bld) [Mass/Vol] 12.6 g/dL 11.4 - 15.2 g/dL [facility] Interpretation and review of laboratory results Normal [facility] MCH (RBC) [Entitic mass] 29.3 pg 25.9 - 33.9 pg [facility] MCHC (RBC) [Mass/Vol] 31.8 g/dL 31.4 - 35.9 g/dL [facility] MCV (RBC) [Entitic vol] 92.1 fL 79.6 - 97.7 fL [facility] Platelet mean volume (Bld) [Entitic vol] 10.7 fL 8.5 - 12.2 fL [facility] Platelets (Bld) [#/Vol] 198 10*3/uL 150 - 393 K/uL [facility] RBC (Bld) [#/Vol] 4.3 10*6/uL [facility] WBC (Bld) [#/Vol] 10.61 10*3/uL 3.99 - 11.19 K/uL [facility] Hematocrit (Bld) [Volume fraction] 39.6 % Normal 34.9-44.3 [facility] Comment on above: Performed By: #### H [facility] ####[facility] (DEFAULT)[address] [place] [address] Hemoglobin (Bld) [Mass/Vol] 12.6 g/dL Normal 11.4-15.2 [facility] Comment on above: Performed By: #### H [facility] ####[facility] (DEFAULT)[address] [place] [address] MCV (RBC) [Entitic vol] 92.1 fL Normal 79.6-97.7 O [facility] Comment on above: Performed By: #### H [facility] ####[facility] (DEFAULT)[address] [place] [address] Mean Cell Hgb 29.3 pg Normal 25.9-33.9 [facility] Comment on above: Performed By: #### H EMO ####[facility] (DEFAULT)[address] [place] [address] Mean Cell Hgb Conc 31.8 g/dL Normal 31.4-35.9 [facility] Comment on above: Performed By: #### H EMO ####[facility] (DEFAULT)[address] [place] [address] Platelet mean volume (Bld) [Entitic vol] 10.7 fL Normal 8.5-12.2 [facility] Comment on above: Performed By: #### H EMO ####[facility] (DEFAULT)[address] [place] [address] Platelets (Bld) [#/Vol] 198 10*3/uL Normal 150-393 [facility] Comment on above: Performed By: #### H EMO ####[facility] (DEFAULT)[address] [place] [address] RBC (Bld) [#/Vol] 4.30 10*6/uL Normal 3.91-5.04 [facility] Comment on above: Performed By: #### H EMO ####[facility] (DEFAULT)[address] [place] [address] RBC Distribution 13.9 % Normal 10.8-14.9 [facility] Comment on above: Performed By: #### H EMOGC ####[facility] (DEFAULT)[address] [place] [address] WBC (Bld) [#/Vol] 10.61 10*3/uL Normal 3.99-11.19 [facility] Comment on above: Performed By: #### H EMOGC ####[facility] (DEFAULT)[address] [place] [address] CHEM 7 (LYTES,BUN,CREA,GLUC) on 08-05-2024 Anion gap [Moles/Vol] 14 mmol/L Normal 7-17 [facility] Comment on above: Performed By: #### S URGP #### [facility] (DEFAULT) [address] [place] [address] Chloride [Moles/Vol] 107 mmol/L Normal 98-108 [facility] Comment on above: Performed By: #### S URGP #### [facility] (DEFAULT) [address] [place] [address] CO2 [Moles/Vol] 27 mmol/L Normal 21-31 [facility] Comment on above: Performed By: #### S URGP #### [facility] (DEFAULT) [address] [place] [address] Creatinine [Mass/Vol] 1.19 mg/dL Normal 0.50-1.20 [facility] Comment on above: Performed By: #### S URGP #### [facility] (DEFAULT) [address] [place] [address] GFR/1.73 sq M.predicted among non-blacks MDRD (S/P/Bld) [Vol rate/Area] 47 mL/min/{1.73_m2} Low >=60 [facility] Comment on above: Result Comment: Repo rted eGFR is based on the CKD-EPI 2020 equation using creatinine, age, and sex. Performed By: #### S URGP #### [facility] (DEFAULT) [address] [place] [address] Glucose [Mass/Vol] 88 mg/dL Normal Nonfastin -179 mg/dL; Fastin-99 [facility] Comment on above: Performed By: #### S URGP #### [facility] (DEFAULT) [address] [address] Osmolality [Osmolality] 307 mosm/kg High 278-305 [facility] Comment on above: Performed By: #### S URGP #### [facility] (DEFAULT) [address] [place] [address] Potassium [Moles/Vol] 3.9 mmol/L Normal 3.5-5.0 [facility] Comment on above: Performed By: #### S URGP #### [facility] (DEFAULT) [address] [place] [address] Sodium [Moles/Vol] 144 mmol/L Normal 135-145 [facility] Comment on above: Performed By: #### S URGP #### [facility] (DEFAULT) [address] [place] [address] Urea nitrogen [Mass/Vol] 34 mg/dL High 7-25 [facility] Comment on above: Performed By: #### S URGP #### [facility] (DEFAULT) [address] [place] [address] Urea nitrogen/Creatinine [Mass ratio] 29 mg/mg Normal [facility] Comment on above: Performed By: #### S URGP #### [facility] (DEFAULT) [address] [place] [address] Anion gap [Moles/Vol] 14 mmol/L 7 - 17 mmol/L [facility] Chloride [Moles/Vol] 108 mmol/L 98 - 10 8 mmol/L [facility] CO2 [Moles/Vol] 25 mmol/L 21 - 31 mmol/L [facility] Creatinine [Mass/Vol] 1.45 mg/dL High 0.50 - 1.20 mg/dL [facility] eGFR, CKD-EPI, Female 37 Low - PINF [facility] Glucose [Mass/Vol] 242 mg/dL High 70 - 179 mg/dL [facility] Interpretation and review of laboratory results Abnormal [facility] Osmolality Calc [Osmolality] 315 High [facility] Potassium [Moles/Vol] 3.8 mmol/L 3.5 - 5.0 mmol/L [facility] Sodium [Moles/Vol] 143 mmol/L 135 - 145 mmol/L [facility] Urea nitrogen [Mass/Vol] 35 mg/dL High 7 - 25 mg/dL [facility] Urea nitrogen/Creatinine [Mass ratio] 24 mg/mg [facility] Anion gap [Moles/Vol] 14 mmol/L Normal 7-17 [facility] Comment on above: Performed By: #### X M #### [facility] (DEFAULT) [address] [place] [address] Chloride [Moles/Vol] 108 mmol/L Normal 98-108 [facility] Comment on above: Performed By: #### X M #### [facility] (DEFAULT) [address] [place] [address] CO2 [Moles/Vol] 25 mmol/L Normal 21-31 [facility] Comment on above: Performed By: #### X M #### [facility] (DEFAULT) [address] [place] [address] Creatinine [Mass/Vol] 1.45 mg/dL High 0.50-1.20 [facility] Comment on above: Performed By: #### X M #### [facility] (DEFAULT) [address] [place] [address] GFR/1.73 sq M.predicted among non-blacks MDRD (S/P/Bld) [Vol rate/Area] 37 mL/min/{1.73_m2} Low >=60 [facility] Comment on above: Result Comment: Repo rted eGFR is based on the CKD-EPI 1 equation using creatinine, age, and sex. Performed By: #### X M #### [facility] (DEFAULT) [address] [place] [address] Glucose [Mass/Vol] 242 mg/dL High Nonfastin -179 mg/dL; Fastin-99 [facility] Comment on above: Performed By: #### X M #### [facility] (DEFAULT) [address] [place] [address] Osmolality [Osmolality] 315 mosm/kg High 278-305 [facility] Comment on above: Performed By: #### X M #### [facility] (DEFAULT) [address] [place] [address] Potassium [Moles/Vol] 3.8 mmol/L Normal 3.5-5.0 [facility] Comment on above: Performed By: #### X M #### [facility] (DEFAULT) [address] [place] [address] Sodium [Moles/Vol] 143 mmol/L Normal 135-145 [facility] Comment on above: Performed By: #### X M #### [facility] (DEFAULT) [address] [place] [address] Urea nitrogen [Mass/Vol] 35 mg/dL High 7-25 [facility] Comment on above: Performed By: #### X M #### [facility] (DEFAULT) [address] [place] [address] Urea nitrogen/Creatinine [Mass ratio] 24 mg/mg Normal [facility] Comment on above: Performed By: #### X M #### [facility] (DEFAULT) [address] [place] [address] Cardiac echo study Procedure Ordered By: Ezequiel Figueroa on 08-05-2024 Ao ASC index 1.56 cm/m2 [facility] Work Phone: Ao peak fidel 1.23 m/s [facility] Work Phone: Ao SOV index 1.56 cm/m2 [facility] Work Phone: Ao STJ index 1.36 cm/m2 [facility] Work Phone: Ao VTI 24.81 cm [facility] Work Phone: Ascending aorta 2.97 cm [facility] Work Phone: AV LVOT peak gradient 4 mmHg [facility] Work Phone: AV mean gradient [facility]: [phone] AV peak gradient 6 mmHG [facility] Work Phone: [phone] AV valve area 2.72 cm2 [facility] Work Phone: [phone] AV Velocity Ratio 0.8 [facility] Work Phone: [phone] MARKUS (continuity Vmax) 2.55 cm2 [facility] Work Phone: [phone] MARKUS (continuity VTI) 2.72 cm2 [facility] Work Phone: [phone] MARKUS index (continuity Vmax) 1.34 m/s [facility] Work Phone: [phone] MARKUS index (continuity VTI) 1.43 cm2/m2 [facility] Work Phone: [phone] Avg e' pk fidel 0.09 m/s [facility] Work Phone: [phone] Body surface area Derived from formula 1.9 m2 [facility] Work Phone: [phone] BP EF 55 % [facility] Work Phone: [phone] DI (Vmax) 0.8 [facility] Work Phone: [phone] DI (VTI) 0.86 m/2 [facility] Work Phone: [phone] e' lateral pk fidel 0.0845 m/s [facility] Work Phone: [phone] e' lateral pk fidel 0.08 m/s [facility] Work Phone: [phone] e' septal pk fidel 0.0953 m/s [facility] Work Phone: [phone] e' septal pk fidel 0.1 m/s [facility] Work Phone: [phone] EF SP 2CH 56 [facility] Work Phone: [phone] EF SP 4CH 51 [facility] Work Phone: [phone] EST RAP 3 mmHg [facility] [phone] EST RVSP 29 mmHg [facility] Work Phone: [phone] FS 31 % [facility] Work Phone: [phone] IVC ostium 1.64 cm [facility] Work Phone: [phone] IVS 1.14 cm [facility] Work Phone: [phone] LA area 4CH 29.07 cm2 [facility] Work Phone: [phone] LA ESV BP (MOD) 86 [facility]: [phone] LA ESV BP (MOD) index 45 mL/m2 [facility] Work Phone: [phone] LA ESV SP 2CH (MOD) 81 mL [facility] Work Phone: [phone] LA ESV SP 4CH (MOD) 93 mL [facility] Work Phone: [phone] LV EDV BP 88 mL [facility] Work Phone: [phone] LV EDV SP 2CH 85 mL [facility] Work Phone: [phone] LV EDV SP 4CH 86 mL [facility] Work Phone: [phone] LV ESV BP 40 mL [facility] Work Phone: [phone] LV ESV SP 2CH 37 mL [facility] Work Phone: [phone] LV ESV SP 4CH 42 mL [facility] Work Phone: [phone] LV mass 146.48 g [facility] Work Phone: [phone] LV Mass Index 77.1 g/m2 [facility] Work Phone: [phone] LV RWT 0.56 [facility] Work Phone: [phone] LV stroke volume BP (ml) 48 mL [facility] Work Phone: [phone] LV stroke volume index BP 25.26 mL/m2 [facility] Work Phone: [phone] LVIDD 3.93 cm [facility] Work Phone: [phone] LVIDS 2.7 cm [facility] Work Phone: [phone] LVOT area 3.17 cm2 [facility] Work Phone: [phone] LVOT diameter 2.01 cm [facility] Work Phone: [phone] LVOT peak fidel 0.99 m/s [facility] Work Phone: [phone] LVOT peak VTI 21.3 cm [facility] Work Phone: [phone] [facility]OT stroke volume 68 [facility]: [phone] LVOT stroke volume index 35.55 ml/m2 [facility] Work Phone: [phone] MV mean gradient 3 mmHg [facility]: [phone] MV peak gradient 6 mmHg [facility] Work Phone: [phone] MV valve area by continuity eq 2.61 cm2 [facility] Work Phone: [phone] MV VTI 25.92 cm [facility] Work Phone: [phone] MVA (continuity VTI) 2.6 cm [facility] Work Phone: [phone] OSU AV VTI RATIO PRE STRESS 0.86 [facility] Work Phone: OSU ECHO LV BIPLANE SYSTOLIC VOLUME INDEX 21.05 mL/m2 [facility] Work Phone: OSU ECHO LV BP DIASTOLIC VOLUME INDEX 46.32 mL/m2 [facility] Work Phone: PV mean gradient 3 mmHg [facility] Work Phone: PV peak gradient 6 mmHg [facility] Work Phone: PV PK FIDEL 1.23 m/s [facility] Work Phone: PW 1.11 cm [facility] Work Phone: RA area 4CH (MOD) 22.74 cm2 [facility] Work Phone: RA vol index 4CH (MOD) 36.32 mL/m2 [facility] Work Phone: Right atrium volume 4 chamber method of disks 69 [facility] Work Phone: RV Area diastolic 17.5 cm2 [facility] Work Phone: RV Area systolic 11.9 cm2 [facility] Work Phone: RV basal diam 4.56 cm [facility] Work Phone: RV Fractional area change 32 % [facility] Work Phone: RV long diam 6.91 cm [facility] Work Phone: RV mid diam 2.91 cm [facility] Work Phone: RV S' 12.81 cm/s [facility] Work Phone: RVOT peak gradient 5 mmHg [facility] Work Phone: RVOT peak fidel 1.07 m/s [facility] Work Phone: RVOT peak VTI 20.1 cm [facility] Work Phone: [phone] Sinus 2.97 cm [facility] Work Phone: [phone] STJ 2.58 cm [facility] Work Phone: [phone] Stroke Volume 68 cm/mL [facility] Work Phone: [phone] Stroke volume index 36 [facility] Work Phone: [phone] TAPSE 2.08 cm [facility] Work Phone: [phone] TR pk grad 26 mmHg [facility] Work Phone: [phone] pk fidel 2.53 m/s [facility] Work Phone: [phone] [facility] Work Phone: Cardiac echo study Procedure on 08-05-2024 [facility] Radiology Study observation (narrative) [facility] ECHOCARDIOGRAMon 08-05-2024 Echocardiography ? No prior [...] from the original result were not included. [facility] Facility [facility] Patient Information Patient Name ArmandOctober [...] Role Read Date Ezequiel Figueroa DO Echo Corder 08/05/2024 Left Heart Measurements LV - Systole [...] long di (more content not included)... Normal [facility] GLUCOSE POCon 08-05-2024 Glucose [Mass/Vol] 228 mg/dL High 70 - 179 mg/dL [facility] Interpretation and review of laboratory results Abnormal [facility] POC Sample Type CAPBL [facility] IONIZED CALCIUM, WHOLE BLOOD on 08-05-2024 ICA 4.72 mg/dL Normal 4.60-5.30 [facility] Comment on above: Performed By: #### S URGP #### [facility] (DEFAULT) [address] [place] [address] ICA 4.69 mg/dL Normal 4.60-5.30 [facility] Comment on above: Performed By: #### S URGP #### [facility] (DEFAULT) [address] [place] [address] IONIZED CALCIUM, WHOLE BLOOD Ordered By: Jairo Layton on 08-05-2024 Calcium.ionized (Bld) [Moles/Vol] 4.69 mg/dL 4.60 - 5.30 mg/dL [facility] Interpretation and review of laboratory results Normal [facility] MAGNESIUMon 08-05-2024 Magnesium [Mass/Vol] 2.4 mg/dL Normal 1.6-2.6 [facility] Comment on above: Performed By: #### S URGP #### [facility] (DEFAULT) [address] [address] Magnesium [Mass/Vol] 1.8 mg/dL 1.6 - 2 .6 mg/dL [facility] Magnesium [Mass/Vol] 1.8 mg/dL Normal 1.6-2.6 [facility] Comment on above: Performed By: #### X M #### [facility] (DEFAULT) [address] [place] [address] No Panel Informationon 08-05 Interpretation and review of laboratory results Normal [facility] PHOSPHATE, INORGANICon 08-05 Phosphorous 3.2 mg/dL Normal 2.2-4.6 [facility] Comment on above: Performed By: #### S URGP #### [facility] (DEFAULT) [address] [place] [address] Phosphate [Mass/Vol] 2.7 mg/dL 2.2 - 4 .6 mg/dL [facility] Phosphorous 2.7 mg/dL Normal 2.2-4.6 [facility] Comment on above: Performed By: #### X M #### [facility] (DEFAULT) [address] [place] [address] [facility] FACTOR AGOrde red By: Madhavi Mcelroy on 08-05-2024 Interpretation and review of laboratory results Abnormal [facility] vWf Ag actual/normal IA (PPP) [Relative mass conc] 230 % High 50 - 180 % [facility] CBC,PLATELETSon 08-04-2024 Erythrocyte distribution width (RBC) [Ratio] 13.7 % 10.8 - 14.9 % [facility] Hematocrit (Bld) [Volume fraction] 40.8 % 34.9 - 44.3 % [facility] Hemoglobin (Bld) [Mass/Vol] 12.7 g/dL 11.4 - 15.2 g/dL [facility] Interpretation and review of laboratory results Abnormal [facility] MCH (RBC) [Entitic mass] 28.7 pg 25.9 - 33.9 pg [facility] MCHC (RBC) [Mass/Vol] 31.1 g/dL Low 31.4 - 35.9 g/dL [facility] MCV (RBC) [Entitic vol] 92.1 fL 79.6 - 97.7 fL [facility] Platelet mean volume (Bld) [Entitic vol] 10.8 fL 8.5 - 12.2 fL [facility] Platelets (Bld) [#/Vol] 228 10*3/uL 150 - 393 K/uL [facility] RBC (Bld) [#/Vol] 4.43 10*6/uL [facility] WBC (Bld) [#/Vol] 11.41 10*3/uL High 3.99 - 11.19 K/uL [facility] Hematocrit (Bld) [Volume fraction] 40.8 % Normal 34.9-44.3 [facility] Comment on above: Performed By: #### H [facility] #### [facility] (DEFAULT) [address] [place] [address] Hemoglobin (Bld) [Mass/Vol] 12.7 g/dL Normal 11.4-15.2 [facility] Comment on above: Performed By: #### H [facility] #### [facility] (DEFAULT) [address] [place] [address] MCV (RBC) [Entitic vol] 92.1 fL Normal 79.6-97.7 [facility] Comment on above: Performed By: #### H EMOGC #### [facility] (DEFAULT) [address] [address] Mean Cell Hgb 28.7 pg Normal 25.9-33.9 [facility] Comment on above: Performed By: #### H EMOGC #### [facility] (DEFAULT) [address] [address] Mean Cell Hgb Conc 31.1 g/dL Low 31.4-35.9 [facility] Comment on above: Performed By: #### H EMOGC #### [facility] (DEFAULT) [address] [address] Platelet mean volume (Bld) [Entitic vol] 10.8 fL Normal 8.5-12.2 [facility] Comment on above: Performed By: #### H EMOBUSTER #### [facility] (DEFAULT) [address] [address] Platelets (Bld) [#/Vol] 228 10*3/uL Normal 150-393 [facility] Comment on above: Performed By: #### H EMOGC #### [facility] (DEFAULT) [address] [address] RBC (Bld) [#/Vol] 4.43 10*6/uL Normal 3.91-5.04 [facility] Comment on above: Performed By: #### H EMOGC #### [facility] (DEFAULT) [address] [address] RBC Distribution 13.7 % Normal 10.8-14.9 [facility] Comment on above: Performed By: #### H EMOGC #### [facility] (DEFAULT) [address] [address] WBC (Bld) [#/Vol] 11.41 10*3/uL High 3.99-11.19 [facility] Comment on above: Performed By: #### H [facility] #### [facility] (DEFAULT) [address] [place] [address] CHEM 7 (LYTES,BUN,CREA,GLUC) Ordered By: Lizette Canseco on 08-04-2024 Anion gap [Moles/Vol] 16 mmol/L 7 - 17 mmol[facility]L [facility] Chloride [Moles/Vol] 109 mmol/L High 98 - 10 8 mmol/L [facility] CO2 [Moles/Vol] 24 mmol/L 21 - 31 mmol/L [facility] Creatinine [Mass/Vol] 1.47 mg/dL High 0.50 - 1.20 mg/dL [facility] eGFR, CKD-EPI, Female 36 Low - PINF [facility] Glucose [Mass/Vol] 181 mg/dL High 70 - 179 mg/dL [facility] Interpretation and review of laboratory results Abnormal [facility] Osmolality Calc [Osmolality] 312 High [facility] Potassium [Moles/Vol] 4 mmol/L 3.5 - 5.0 mmol/L [facility] Sodium [Moles/Vol] 145 mmol/L 135 - 145 mmol/L [facility] Urea nitrogen [Mass/Vol] 26 mg/dL High 7 - 25 mg/dL [facility] Urea nitrogen/Creatinine [Mass ratio] 18 mg/mg [facility] CHEM 7 (LYTES,BUN,CREA,GLUC) on 08-04-2024 Anion gap [Moles/Vol] 16 mmol/L Normal 7-17 [facility] Comment on above: Performed By: #### S URGP #### [facility] (DEFAULT) [address] [place] [address] Chloride [Moles/Vol] 109 mmol/L High 98-108 [facility] Comment on above: Performed By: #### S URGP #### [facility] (DEFAULT) [address] [place] [address] CO2 [Moles/Vol] 24 mmol/L Normal 21-31 [facility] Comment on above: Performed By: #### S URGP #### [facility] (DEFAULT) [address] [address] Creatinine [Mass/Vol] 1.47 mg/dL High 0.50-1.20 [facility] Comment on above: Performed By: #### S URGP #### [facility] (DEFAULT) [address] [place] [address] GFR/1.73 sq M.predicted among non-blacks MDRD (S/P/Bld) [Vol rate/Area] 36 mL/min/{1.73_m2} Low >=60 [facility] Comment on above: Result Comment: Repo rted eGFR is based on the CKD-EPI 2020 equation using creatinine, age, and sex. Performed By: #### S URGP #### [facility] (DEFAULT) [address] [place] [address] Glucose [Mass/Vol] 181 mg/dL High Nonfastin -179 mg/dL; Fastin-99 [facility] Comment on above: Performed By: #### S URGP #### [facility] (DEFAULT) [address] [place] [address] Osmolality [Osmolality] 312 mosm/kg High 278-305 [facility] Comment on above: Performed By: #### S URGP #### [facility] (DEFAULT) [address] [place] [address] Potassium [Moles/Vol] 4.0 mmol/L Normal 3.5-5.0 [facility] Comment on above: Performed By: #### S URGP #### [facility] (DEFAULT) [address] [place] [address] Sodium [Moles/Vol] 145 mmol/L Normal 135-145 [facility] Comment on above: Performed By: #### S URGP #### [facility] (DEFAULT) [address] [place] [address] Urea nitrogen [Mass/Vol] 26 mg/dL High 7-25 [facility] Comment on above: Performed By: #### S URGP #### [facility] (DEFAULT) [address] [place] [address] Urea nitrogen/Creatinine [Mass ratio] 18 mg/mg Normal [facility] Comment on above: Performed By: #### S URGP #### [facility] (DEFAULT) [address] [place] [address] CT HEAD WITHOUT CONTRASTon 0 08-04-2024 CT [...] sinuses are clear. IMPRESSION: Stable exam. Normal [facility] CT Head WO contraston 2024 RADIOLOGY RADIOLOGY [facility] CT Head WO contrastOrdered B y: Chirag Mendenhall on 08-04-2024 [facility] Work Phone: GLUCOSE POCon 08-04-2024 Glucose [Mass/Vol] 227 mg/dL High 70 - 179 mg/dL [facility] Interpretation and review of laboratory results Abnormal [facility] POC Sample Type [facility] Glucose [Mass/Vol] 235 mg/dL High 70 - 179 mg/dL [facility] Interpretation and review of laboratory results Abnormal [facility] POC Sample Type [facility] Glucose [Mass/Vol] 215 mg/dL High 70 - 179 mg/dL [facility] Interpretation and review of laboratory results Abnormal [facility] POC Sample Type CAPBL [facility] Glucose [Mass/Vol] 178 mg/dL 70 - 179 mg/dL [facility] Glucose [Mass/Vol] 157 mg/dL 70 - 179 mg/dL [facility] Glucose [Mass/Vol] 271 mg/dL High 70 - 179 mg/dL [facility] Glucose [Mass/Vol] 267 mg/dL High 70 - 179 mg/dL [facility] Glucose [Mass/Vol] 246 mg/dL High 70 - 179 mg/dL [facility] IONIZED CALCIUM, WHOLE BLOOD Ordered By: Laura Rodriguez on 08-04-2024 Calcium.ionized (Bld) [Moles/Vol] 4.8 mg/dL 4.60 - 5.30 mg/dL [facility] Interpretation and review of laboratory results Normal [facility] IONIZED CALCIUM, WHOLE BLOOD on 08-04-2024 ICA 4.80 mg/dL Normal 4.60-5.30 [facility] Comment on above: Performed By: #### T YPEC #### [facility] (DEFAULT) [address] [place] [address] MAGNESIUMon 08-04-2024 Magnesium [Mass/Vol] 1.9 mg/dL 1.6 - 2 .6 mg/dL [facility] Magnesium [Mass/Vol] 1.9 mg/dL Normal 1.6-2.6 [facility] Comment on above: Performed By: #### X M #### [facility] (DEFAULT) [address] [place] [address] No Panel Informationon 08-04 POC Sample Type CAPBL [facility] Interpretation and review of laboratory results Abnormal [facility] Interpretation and review of laboratory results Normal [facility] PHOSPHATE, INORGANICon 08-04 Phosphate [Mass/Vol] 2.8 mg/dL 2.2 - 4 .6 mg/dL [facility] Phosphorous 2.8 mg/dL Normal 2.2-4.6 [facility] Comment on above: Performed By: #### X M #### [facility] (DEFAULT) [address] [place] [address] SODIUMon 08-04-2024 Interpretation and review of laboratory results Normal [facility] Sodium [Moles/Vol] 142 mmol/L 135 - 145 mmol/L [facility] Sodium [Moles/Vol] 142 mmol/L Normal 135-145 [facility] Comment on above: Order Comment: While on 3% Hypertonic Saline. Performed By: #### S URGP #### [facility] (DEFAULT) [address] [place] [address] Interpretation and review of laboratory results Normal [facility] Sodium [Moles/Vol] 141 mmol/L 135 - 145 mmol/L [facility] Sodium [Moles/Vol] 141 mmol/L Normal 135-145 [...] Performed By: #### B LDCULT #### [facility] (DEFAULT) [address] [place] [address] Interpretation and review of laboratory results Normal [facility] Sodium [Moles/Vol] 143 mmol/L 135 - 145 mmol/L [facility] Sodium [Moles/Vol] 143 mmol/L Normal 135-145 [facility] Comment on above: Order Comment: While on 3% Hypertonic Saline. Performed By: #### H EMO #### [facility] (DEFAULT) [address] [place] [address] ABORH TYPE RECONFIRMATIONon 08-03-2024 ABO/RH(D) TYPE Negative [facility] ABO/RH(D) TYPE Negative Normal [facility] Comment on above: Performed By: #### T YPEC #### [facility] (DEFAULT) [address] [place] [address] CBC,PLATELETSon 08-03-2024 Erythrocyte distribution width (RBC) [Ratio] 13.2 % 10.8 - 14.9 % [facility] Hematocrit (Bld) [Volume fraction] 42.8 % 34.9 - 44.3 % [facility] Hemoglobin (Bld) [Mass/Vol] 13.5 g/dL 11.4 - 15.2 g/dL [facility] Interpretation and review of laboratory results Normal [facility] MCH (RBC) [Entitic mass] 29.2 pg 25.9 - 33.9 pg [facility] MCHC (RBC) [Mass/Vol] 31.5 g/dL 31.4 - 35.9 g/dL [facility] MCV (RBC) [Entitic vol] 92.4 fL 79.6 - 97.7 fL [facility] Platelet mean volume (Bld) [Entitic vol] 11.2 fL 8.5 - 12.2 fL [facility] Platelets (Bld) [#/Vol] 227 10*3/uL 150 - 393 K/uL [facility] RBC (Bld) [#/Vol] 4.63 10*6/uL [facility] WBC (Bld) [#/Vol] 8.43 10*3/uL 3.99 - 11.19 K/uL [facility] Hematocrit (Bld) [Volume fraction] 42.8 % Normal 34.9-44.3 [facility] Comment on above: Performed By: #### X M #### [facility] (DEFAULT) [address] [address] Hemoglobin (Bld) [Mass/Vol] 13.5 g/dL Normal 11.4-15.2 [facility] Comment on above: Performed By: #### X M #### [facility] (DEFAULT) [address] [address] MCV (RBC) [Entitic vol] 92.4 fL Normal 79.6-97.7 [facility] Comment on above: Performed By: #### X M #### [facility] (DEFAULT) [address] [address] Mean Cell Hgb 29.2 pg Normal 25.9-33.9 [facility] Comment on above: Performed By: #### X M #### [facility] (DEFAULT) [address] [address] Mean Cell Hgb Conc 31.5 g/dL Normal 31.4-35.9 [facility] Comment on above: Performed By: #### X M #### [facility] (DEFAULT) [address] [address] Platelet mean volume (Bld) [Entitic vol] 11.2 fL Normal 8.5-12.2 [facility] Comment on above: Performed By: #### X M #### [facility] (DEFAULT) [address] [address] Platelets (Bld) [#/Vol] 227 10*3/uL Normal 150-393 [facility] Comment on above: Performed By: #### X M #### [facility] (DEFAULT) [address] [place] [address] RBC (Bld) [#/Vol] 4.63 10*6/uL Normal 3.91-5.04 [facility] Comment on above: Performed By: #### X M #### [facility] (DEFAULT) [address] [place] [address] RBC Distribution 13.2 % Normal 10.8-14.9 [facility] Comment on above: Performed By: #### X M #### [facility] (DEFAULT) [address] [place] [address] WBC (Bld) [#/Vol] 8.43 10*3/uL Normal 3.99-11.19 [facility] Comment on above: Performed By: #### X M #### [facility] (DEFAULT) [address] [place] [address] CHEM 7 (LYTES,BUN,CREA,GLUC) on 08-03-2024 Anion gap [Moles/Vol] 16 mmol/L 7 - 17 mmol/L [facility] Chloride [Moles/Vol] 103 mmol/L 98 - 10 8 mmol/L [facility] CO2 [Moles/Vol] 23 mmol/L 21 - 31 mmol/L [facility] Creatinine [Mass/Vol] 1.35 mg/dL High 0.50 - 1.20 mg/dL [facility] eGFR, CKD-EPI, Female 40 Low - PINF [facility] Glucose [Mass/Vol] 151 mg/dL 70 - 179 mg/dL [facility] Interpretation and review of laboratory results Abnormal [facility] Osmolality Calc [Osmolality] 295 [facility] Potassium [Moles/Vol] 4.3 mmol/L 3.5 - 5.0 mmol/L [facility] Sodium [Moles/Vol] 138 mmol/L 135 - 145 mmol/L [facility] Urea nitrogen [Mass/Vol] 18 mg/dL 7 - 25 mg/dL [facility] Urea nitrogen/Creatinine [Mass ratio] 13 mg/mg [facility] Anion gap [Moles/Vol] 16 mmol/L Normal 7-17 [facility] Comment on above: Performed By: #### S URGP #### [facility] (DEFAULT) [address] [place] [address] Chloride [Moles/Vol] 103 mmol/L Normal 98-108 [facility] Comment on above: Performed By: #### S URGP #### [facility] (DEFAULT) [address] [place] [address] CO2 [Moles/Vol] 23 mmol/L Normal 21-31 [facility] Comment on above: Performed By: #### S URGP #### [facility] (DEFAULT) [address] [place] [address] Creatinine [Mass/Vol] 1.35 mg/dL High 0.50-1.20 [facility] Comment on above: Performed By: #### S URGP #### [facility] (DEFAULT) [address] [place] [address] GFR/1.73 sq M.predicted among non-blacks MDRD (S/P/Bld) [Vol rate/Area] 40 mL/min/{1.73_m2} Low >=60 [facility] Comment on above: Result Comment: Repo rted eGFR is based on the CKD-EPI 2020 equation using creatinine, age, and sex. Performed By: #### S URGP #### [facility] (DEFAULT) [address] [place] [address] Glucose [Mass/Vol] 151 mg/dL Normal Nonfastin -179 mg/dL; Fastin-99 [facility] Comment on above: Performed By: #### S URGP #### [facility] (DEFAULT) [address] [place] [address] Osmolality [Osmolality] 295 mosm/kg Normal 278-305 [facility] Comment on above: Performed By: #### S URGP #### [facility] (DEFAULT) [address] [place] [address] Potassium [Moles/Vol] 4.3 mmol/L Normal 3.5-5.0 [facility] Comment on above: Result Comment: Spec imen slightly hemolyzed. Potassium results may be falsey elevated by more than 0.5 mmol/L. Consider recollection. Performed By: #### S URGP #### [facility] (DEFAULT) [address] [place] [address] Sodium [Moles/Vol] 138 mmol/L Normal 135-145 [facility] Comment on above: Performed By: #### S URGP #### [facility] (DEFAULT) [address] [place] [address] Urea nitrogen [Mass/Vol] 18 mg/dL Normal 7-25 [facility] Comment on above: Performed By: #### S URGP #### [facility] (DEFAULT) [address] [place] [address] Urea nitrogen/Creatinine [Mass ratio] 13 mg/mg Normal [facility] Comment on above: Performed By: #### S URGP #### [facility] (DEFAULT) [address] [place] [address] CHEST WITH CONTRAST VASCU LAR TRAUMAon [...] have reviewed and approved this report. Normal [facility] CT Cervical spine WO contras ton 08-03-2024 RADIOLOGY RADIOLOGY [facility] CT Cervical spine WO contras tOrdered By: Alissa Chun on 08-03-2024 [facility] Work Phone: CT Chest W contrast Seth RADIOLOGY RADIOLOGY [facility] CT Chest W contrast IVOrdere d By: Kayla Newell on 08-03-2024 [facility] Work Phone: CT HEAD WITHOUT [...] since the MRI from earlier today Normal [facility] CT Head WO contraston 2024 Radiology Study observation (narrative) [facility] RADIOLOGY RADIOLOGY [facility] Radiology Study observation (narrative) [facility] CT ORBITS WITHOUT CONTRASTon 08-03-2024 CT [...] basal ganglia hyperdensity concerning for hemorrhage. Normal [facility] CT Orbit WO contraston 08-03 RADIOLOGY RADIOLOGY [facility] CT SPINE CERVICAL WITHOUT CO NTRASTon 03-22-2025 CT SPINE CERVICAL WITHOUT CONTRAST EXAM: CT [...] No evidence of acute fractures identified Normal [facility] EXTRA MICROon 08-03-2024 [facility] GLUCOSE POCon 08-03-2024 Glucose [Mass/Vol] 161 mg/dL 70 - 179 mg/dL [facility] POC Sample Type CAPBL [facility] IONIZED CALCIUM, WHOLE BLOOD Ordered By: Alejandra Ness on 08-03-2024 Calcium.ionized (Bld) [Moles/Vol] 4.24 mg/dL Low 4.60 - 5.30 mg/dL [facility] Interpretation and review of laboratory results Abnormal [facility] IONIZED CALCIUM, WHOLE BLOOD on 08-03-2024 ICA 4.24 mg/dL Low 4.60-5.30 [facility] Comment on above: Performed By: #### H [facility] #### [facility] (DEFAULT) [address] [place] [address] MAGNESIUMon 08-03-2024 Magnesium [Mass/Vol] 2.1 mg/dL 1.6 - 2 .6 mg/dL [facility] Magnesium [Mass/Vol] 2.1 mg/dL Normal 1.6-2.6 [facility] Comment on above: Performed By: #### S URGP #### [facility] (DEFAULT) [address] [place] [address] MR Brain WO contraston 08-03 RADIOLOGY RADIOLOGY [facility] Radiology Study observation (narrative) [facility] MR Cervical spine WO contras ton 08-03-2024 RADIOLOGY RADIOLOGY [facility] Radiology Study observation (narrative) [facility] MR Cervical spine WO contras tOrdered By: Kuldeep Tavares on 08-03-2024 [facility] Work Phone: MRI BRAIN WITHOUT [...] tiny 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 Normal [facility] MRI SPINE CERVICAL WITHOUT C ONTRASTon [...] have reviewed and approved this report. Normal [facility] NT-PRO B-TYPE NATRIURETIC PE PTIDEon 08-03-2024 Interpretation and review of laboratory results Abnormal [facility] Natriuretic peptide.B prohormone N-Terminal IA [Mass/Vol] 1115 pg/mL High NINF - 540 pg/mL [facility] No Panel Informationon 08-03 RADIOLOGY RADIOLOGY [facility] Interpretation and review of laboratory results Normal [facility] No Panel InformationOrdered By: Richard Sánchez on 08-03-2024 [facility] Work Phone: PHOSPHATE, INORGANICon 08-03 Phosphate [Mass/Vol] 3.5 mg/dL 2.2 - 4 .6 mg/dL [facility] Phosphorous 3.5 mg/dL Normal 2.2-4.6 [facility] Comment on above: Performed By: #### S URGP #### [facility] (DEFAULT) [address] [place] [address] SCREEN: MRSA/MSSAOrdered By: Gail Collado on 08-03-2024 Interpretation and review of laboratory results Normal [facility] Methicillin Resistant S. Aureus By Pcr Negative Negative [facility] Staphylococcus Aureus By Pcr Negative Negative [facility] SODIUMon 08-03-2024 Interpretation and review of laboratory results Normal [facility] Sodium [Moles/Vol] 139 mmol/L 135 - 145 mmol/L [facility] Sodium [Moles/Vol] 139 mmol/L Normal 135-145 [facility] Comment on above: Order Comment: While on 3% Hypertonic Saline. Performed By: #### N AO ####[facility] (DEFAULT)[address] [place] [address] Interpretation and review of laboratory results Abnormal [facility] Sodium [Moles/Vol] 134 mmol/L Low 135 - 145 mmol/L [facility] Sodium [Moles/Vol] 134 mmol/L Low 135-145 [facility] Comment on above: Order Comment: While on 3% Hypertonic Saline. Performed By: #### H EMOGC #### [facility] (DEFAULT) [address] [place] [address] XR ABDOMEN 1 VIEW PORTABLEon 08-03-2024 XR [...] proximal second portion of the duodenum. Normal [facility] XR Abdomen Single viewon RADIOLOGY RADIOLOGY [facility] Radiology Study observation (narrative) [facility] XR Abdomen Single viewOrdere d By: Huey Gibson on 08-03-2024 [facility] XR ELBOW RIGHT 2 VIEWSon XR ELBOW RIGHT 2 VIEWS EXAM: XR ELBOW RI GHT 2 VIEWS, XR HUMERUS RIGHT 2+ VIEWS, XR WRIST RIGHT 3+ VIEWS, 08/02/2024 23:24 PM (accession [id number]), 08/02/2024 23:24 PM (accession [id number]), 08/02/2024 23:23 PM (accession [id number]) COMPARISON: No prior studies available for comparison. [...] dislocation. IMPRESSION: No acute osseous abnormality. Normal [facility] XR HUMERUS RIGHT 2+ VIEWSon 08-03-2024 XR HUMERUS RIGHT 2+ VIEWS EXAM: XR ELBOW RIGHT 2 VIEWS, XR HUMERUS RIGHT 2+ VIEWS, XR WRIST RIGHT 3+ VIEWS, 08/02/2024 23:24 PM (accession [id number]), 08/02/2024 23:24 PM (accession [id number]), 08/02/2024 23:23 PM (accession [id number]) COMPARISON: No prior studies available for comparison. [...] dislocation. IMPRESSION: No acute osseous abnormality. Normal [facility] XR WRIST RIGHT 3+ VIEWSon XR WRIST RIGHT 3+ VIEWS EXAM: XR ELBOW R IGHT 2 VIEWS, XR HUMERUS RIGHT 2+ VIEWS, XR WRIST RIGHT 3+ VIEWS, 08/02/2024 23:24 PM (accession [id number]), 08/02/2024 23:24 PM (accession [id number]), 08/02/2024 23:23 PM (accession [id number]) COMPARISON: No prior studies available for comparison. [...] dislocation. IMPRESSION: No acute osseous abnormality. Normal [facility] 12 Lead EKGon 08-02-2024 12 Lead EKG [facility] [address] [place] [address] 12 Lead EKG 08/02/24 1309 MR#: [id number] Acct: [id number] Name: LINDSAY ACUNA Rep #: [id number] : 1945 78 From: Mj Benavides MD [...] ECG Confirmed by MAKAYLA LAWSON, MJ ([id number]), food expeditor NAIMA BEARDEN ([id number]) on 08/05/2024 6:47:07 AM Referred By: Confirmed By: MJ BENAVIDES MD 08/05/24 0647 Date Mj Benavides MD CC: Dr. Pieter Morgan MD; Dr. Kameron Caruso MD Signed Normal [facility] Absolute lymphocyte countOrd ered By: Pieter Morgan on 08-02-2024 Lymphocytes Auto (Unsp spec) [#/Vol] 1.56 10*3/uL 0.83-4.51 [facility] Absolute neutrophil countOrd ered By: Pieter Morgan on 08-02-2024 Neutrophils (Bld) [#/Vol] 6.2 10*3/uL 2.0-7.7 [facility] Activated partial thrombopla stin time (aPTT) in platelet poor plasma by coagulation aOrdered By: Pieter Morgan on 08-02-2024 aPTT Coag (PPP) [Time] 28.4 s 24.1-36.2 [facility] Anion gap in Serum or Plasma Ordered By: Pieter Morgan on 08-02-2024 Anion gap [Moles/Vol] 12 mmol/L 5-15 [facility] Automated lymphocyte count a s percentage of total leukocytesOrdered By: Pieter Morgan on 08-02-2024 Lymphocytes/100 WBC Auto (Unsp spec) 17.9 % Low 19- [facility] BUN/creatinine ratioOrdered By: Pieter Morgan on 08-02-2024 Urea nitrogen/Creatinine [Mass ratio] 11.6 mg/mg 03-03 [facility] Basic Metabolic Profile (BMP )on 08-02-2024 BUN/CRE 11.6 RATIO Normal 03-03 [facility] Comment on above: Performed By: #### L 300.4310, L501.4021, L300.3900, L500.2500, L100.0100 #### [facility] [address] [place], [address] Calcium [Mass/Vol] 9.0 mg/dL Normal 7.6-11.0 [facility] Comment on above: Performed By: #### L 300.4310, L501.4021, L300.3900, L500.2500, L100.0100 #### [facility] [address] [place], [address] Chloride [Moles/Vol] 98 mmol/L Normal 98-108 [facility] Comment on above: Performed By: #### L 300.4310, L501.4021, L300.3900, L500.2500, L100.0100 #### [facility] [address] [place], [address] CO2 [Moles/Vol] 22.0 mmol/L Normal 21.0-32.0 [facility] Comment on above: Performed By: #### L 300.4310, L501.4021, L300.3900, L500.2500, L100.0100 #### [facility] [address] [place], [address] Creatinine [Mass/Vol] 1.74 mg/dL High 0.70-1.20 [facility] Comment on above: Performed By: #### L 300.4310, L501.4021, L300.3900, L500.2500, L100.0100 #### [facility] [address] [place], [address] ECRCL 27.14 ml/min Low 50-250 [facility] Comment on above: Performed By: #### L 300.4310, L501.4021, L300.3900, L500.2500, L100.0100 #### [facility] [address] [place], [address] GAP 12 Normal 5-15 [facility] Comment on above: Performed By: #### L 300.4310, L501.4021, L300.3900, L500.2500, L100.0100 #### [facility] [address] [place], [address] GFR/1.73 sq M.predicted among non-blacks MDRD (S/P/Bld) [Vol rate/Area] 29 mL/min/{1.73_m2} Low >60 [facility] Comment on above: Result Comment: mL/m in/1.73m2 CKD-EPI Creatinine Equation (2020) Performed By: #### L 300.4310, L501.4021, L300.3900, L500.2500, L100.0100 #### [facility] [address] [place], [address] Glucose [Mass/Vol] 235 mg/dL High 70-99 [facility] Comment on above: Performed By: #### L 300.4310, L501.4021, L300.3900, L500.2500, L100.0100 #### [facility] [address] [place], [address] Potassium [Moles/Vol] 4.2 mmol/L Normal 3.3-5.1 [facility] Comment on above: Performed By: #### L 300.4310, L501.4021, L300.3900, L500.2500, L100.0100 #### [facility] [address] [place], [address] Sodium [Moles/Vol] 132 mmol/L Low 133-145 [facility] Comment on above: Performed By: #### L 300.4310, L501.4021, L300.3900, L500.2500, L100.0100 #### [facility] [address] [place], [address] Urea nitrogen [Mass/Vol] 20 mg/dL High 4-19 [facility] Comment on above: Performed By: #### L 300.4310, L501.4021, L300.3900, L500.2500, L100.0100 #### [facility] [address] [place], [address] Basophil percentageOrdered B y: Pieter Morgan on 08-02-2024 Basophils/100 WBC (Bld) 0.5 % 0-1 [facility] CBC W/Diff, Automatedon 07-14 Absolute Lymph 1.56 X10 3/uL Normal 0.83-4.51 [facility] Comment on above: Performed By: #### L 300.4310, L501.4021, L300.3900, L500.2500, L100.0100 #### [facility] [address] [place], [address] Absolute Neut 6.2 X10 3/uL Normal 2.0-7.7 [facility] Comment on above: Performed By: #### L 300.4310, L501.4021, L300.3900, L500.2500, L100.0100 #### [facility] [address] [place], [address] Basophils/100 WBC (Bld) 0.5 % Normal 0-1 [facility] Comment on above: Performed By: #### L 300.4310, L501.4021, L300.3900, L500.2500, L100.0100 #### [facility] [address] [place], [address] Eosinophils/100 WBC (Bld) 1.0 % Normal 0-5 [facility] Comment on above: Performed By: #### L 300.4310, L501.4021, L300.3900, L500.2500, L100.0100 #### [facility] [address] [place], [address] Erythrocyte distribution width (RBC) [Ratio] 13.3 % Normal 11.6-14.6 [facility] Comment on above: Performed By: #### L 300.4310, L501.4021, L300.3900, L500.2500, L100.0100 #### [facility] [address] [place], [address] Hematocrit (Bld) [Volume fraction] 42.0 % Normal 37-47 [facility] Comment on above: Performed By: #### L 300.4310, L501.4021, L300.3900, L500.2500, L100.0100 #### [facility] [address] [place], [address] Hemoglobin (Bld) [Mass/Vol] 13.8 g/dL Normal 12.0-15.0 [facility] Comment on above: Performed By: #### L 300.4310, L501.4021, L300.3900, L500.2500, L100.0100 #### [facility] [address] [place], [address] IG% 0.300 Normal 0.0-0.9 [facility] Comment on above: Result Comment: IG% - Immature Granulocytes (promyelocytes, myelocytes and metamyelocytes) > 1% indicates that a LEFT SHIFT is Present. Performed By: #### L 300.4310, L501.4021, L300.3900, L500.2500, L100.0100 #### [facility] [address] [place], [address] Lymphocytes/100 WBC (Bld) 17.9 % Low 19-41 [facility] Comment on above: Performed By: #### L 300.4310, L501.4021, L300.3900, L500.2500, L100.0100 #### [facility] [address] [place], [address] MCH (RBC) [Entitic mass] 30.3 pg Normal 27.0-32.0 [facility] Comment on above: Performed By: #### L 300.4310, L501.4021, L300.3900, L500.2500, L100.0100 #### [facility] [address] [place], [address] MCHC (RBC) [Mass/Vol] 32.9 g/dL Normal 32-36 [facility] Comment on above: Performed By: #### L 300.4310, L501.4021, L300.3900, L500.2500, L100.0100 #### [facility] [address] [place], [address] MCV (RBC) [Entitic vol] 92.1 fL Normal 81-99 [facility] Comment on above: Performed By: #### L 300.4310, L501.4021, L300.3900, L500.2500, L100.0100 #### [facility] [address] [place], [address] Monocytes/100 WBC (Bld) 8.9 % Normal 0-10 [facility] Comment on above: Performed By: #### L 300.4310, L501.4021, L300.3900, L500.2500, L100.0100 #### [facility] [address] [place], [address] Neutrophils/100 WBC (Bld) 71.4 % High 47-70 [facility] Comment on above: Performed By: #### L 300.4310, L501.4021, L300.3900, L500.2500, L100.0100 #### [facility] [address] [place], [address] Nucleated RBC (Bld) [#/Vol] 0 10*3/uL Normal 0-5 [facility] Comment on above: Performed By: #### L 300.4310, L501.4021, L300.3900, L500.2500, L100.0100 #### [facility] [address] [place], [address] Platelet mean volume (Bld) [Entitic vol] 10.7 fL Normal 6.2-12.0 [facility] Comment on above: Performed By: #### L 300.4310, L501.4021, L300.3900, L500.2500, L100.0100 #### [facility] [address] [place], [address] Platelets (Bld) [#/Vol] 214 10*3/uL Normal 150-450 [facility] Comment on above: Performed By: #### L 300.4310, L501.4021, L300.3900, L500.2500, L100.0100 #### [facility] [address] [place], [address] RBC (Bld) [#/Vol] 4.56 10*6/uL Normal 4.2-5.4 [facility] Comment on above: Performed By: #### L 300.4310, L501.4021, L300.3900, L500.2500, L100.0100 #### [facility] [address] [place], [address] RDW SD 45.3 fl High 35.1-43.9 [facility] Comment on above: Performed By: #### L 300.4310, L501.4021, L300.3900, L500.2500, L100.0100 #### [facility] [address] [place], [address] WBC (Bld) [#/Vol] 8.7 10*3/uL Normal 4.4-11.0 [facility] Comment on above: Performed By: #### L 300.4310, L501.4021, L300.3900, L500.2500, L100.0100 #### [facility] [address] [place], [address] CBC,PLATELETSon 08-02-2024 Erythrocyte distribution width (RBC) [Ratio] 13.3 % 10.8 - 14.9 % [facility] Hematocrit (Bld) [Volume fraction] 43.8 % 34.9 - 44.3 % [facility] Hemoglobin (Bld) [Mass/Vol] 14 g/dL 11.4 - 15.2 g/dL [facility] Interpretation and review of laboratory results Normal [facility] MCH (RBC) [Entitic mass] 29.4 pg 25.9 - 33.9 pg [facility] MCHC (RBC) [Mass/Vol] 32 g/dL 31.4 - 35.9 g/dL [facility] MCV (RBC) [Entitic vol] 92 fL 79.6 - 97.7 fL [facility] Platelet mean volume (Bld) [Entitic vol] 10.8 fL 8.5 - 12.2 fL [facility] Platelets (Bld) [#/Vol] 245 10*3/uL 150 - 393 K/uL [facility] RBC (Bld) [#/Vol] 4.76 10*6/uL [facility] WBC (Bld) [#/Vol] 8.16 10*3/uL 3.99 - 11.19 K/uL [facility] Hematocrit (Bld) [Volume fraction] 43.8 % Normal 34.9-44.3 [facility] Comment on above: Performed By: #### B LDCULT #### [facility] (DEFAULT) [address] [place] [address] Hemoglobin (Bld) [Mass/Vol] 14.0 g/dL Normal 11.4-15.2 [facility] Comment on above: Performed By: #### B LDCULT #### [facility] (DEFAULT) [address] [place] [address] MCV (RBC) [Entitic vol] 92.0 fL Normal 79.6-97.7 O [facility] Comment on above: Performed By: #### B LDCULT #### [facility] (DEFAULT) [address] [place] [address] Mean Cell Hgb 29.4 pg Normal 25.9-33.9 [facility] Comment on above: Performed By: #### B LDCULT #### [facility] (DEFAULT) [address] [place] [address] Mean Cell Hgb Conc 32.0 g/dL Normal 31.4-35.9 [facility] Comment on above: Performed By: #### B LDCULT #### [facility] (DEFAULT) [address] [place] [address] Platelet mean volume (Bld) [Entitic vol] 10.8 fL Normal 8.5-12.2 [facility] Comment on above: Performed By: #### B LDCULT #### [facility] (DEFAULT) [address] [place] [address] Platelets (Bld) [#/Vol] 245 10*3/uL Normal 150-393 [facility] Comment on above: Performed By: #### B LDCULT #### [facility] (DEFAULT) [address] [place] [address] RBC (Bld) [#/Vol] 4.76 10*6/uL Normal 3.91-5.04 [facility] Comment on above: Performed By: #### B LDCULT #### [facility] (DEFAULT) [address] [place] [address] RBC Distribution 13.3 % Normal 10.8-14.9 [facility] Comment on above: Performed By: #### B LDCULT #### [facility] (DEFAULT) [address] [place] [address] WBC (Bld) [#/Vol] 8.16 10*3/uL Normal 3.99-11.19 [facility] Comment on above: Performed By: #### B LDCULT #### [facility] (DEFAULT) [address] [place] [address] CHEM 7 (LYTES,BUN,CREA,GLUC) on 08-02-2024 Anion gap [Moles/Vol] 16 mmol/L 7 - 17 mmol/L [facility] Chloride [Moles/Vol] 105 mmol/L 98 - 10 8 mmol/L [facility] CO2 [Moles/Vol] 22 mmol/L 21 - 31 mmol/L [facility] Creatinine [Mass/Vol] 1.37 mg/dL High 0.50 - 1.20 mg/dL [facility] eGFR, CKD-EPI, Female 39 Low - PINF [facility] Glucose [Mass/Vol] 210 mg/dL High 70 - 179 mg/dL [facility] Osmolality Calc [Osmolality] 299 [facility] Potassium [Moles/Vol] 3.7 mmol/L 3.5 - 5.0 mmol/L [facility] Sodium [Moles/Vol] 139 mmol/L 135 - 145 mmol/L [facility] Urea nitrogen [Mass/Vol] 18 mg/dL 7 - 25 mg/dL [facility] Urea nitrogen/Creatinine [Mass ratio] 13 [facility] Anion gap [Moles/Vol] 16 mmol/L Normal 7-17 [facility] Comment on above: Performed By: #### H [facility] #### [facility] (DEFAULT) [address] [place] [address] Chloride [Moles/Vol] 105 mmol/L Normal 98-108 [facility] Comment on above: Performed By: #### H EMOGC #### [facility] (DEFAULT) [address] [place] [address] CO2 [Moles/Vol] 22 mmol/L Normal 21-31 [facility] Comment on above: Performed By: #### H EMOGC #### [facility] (DEFAULT) [address] [place] [address] Creatinine [Mass/Vol] 1.37 mg/dL High 0.50-1.20 [facility] Comment on above: Performed By: #### H EMO #### [facility] (DEFAULT) [address] [place] [address] GFR/1.73 sq M.predicted among non-blacks MDRD (S/P/Bld) [Vol rate/Area] 39 mL/min/{1.73_m2} Low >=60 [facility] Comment on above: Result Comment: Repo rted eGFR is based on the CKD-EPI 2020 equation using creatinine, age, and sex. Performed By: #### H EMO #### [facility] (DEFAULT) [address] [place] [address] Glucose [Mass/Vol] 210 mg/dL High Nonfastin -179 mg/dL; Fastin-99 [facility] Comment on above: Performed By: #### H EMOGC #### [facility] (DEFAULT) [address] [place] [address] Osmolality [Osmolality] 299 mosm/kg Normal 278-305 [facility] Comment on above: Performed By: #### H EMOGC #### [facility] (DEFAULT) [address] [place] [address] Potassium [Moles/Vol] 3.7 mmol/L Normal 3.5-5.0 [facility] Comment on above: Performed By: #### H EMOGC #### [facility] (DEFAULT) [address] [place] [address] Sodium [Moles/Vol] 139 mmol/L Normal 135-145 [facility] Comment on above: Performed By: #### H EMOGC #### [facility] (DEFAULT) [address] [place] [address] Urea nitrogen [Mass/Vol] 18 mg/dL Normal - [facility] Comment on above: Performed By: #### H EMOGC #### [facility] (DEFAULT) [address] [place] [address] Urea nitrogen/Creatinine [Mass ratio] 13 mg/mg Normal [facility] Comment on above: Performed By: #### H EMOGC #### [facility] (DEFAULT) [address] [place] [address] ABDOMEN/PELVIS WITH CONTR AST VASCULAR TRAUMAon [...] Moderate calcific atherosclerosis. Bladder: Decompressed by a Marina catheter. Pelvic Organs: Normal. Body Wall: Normal. Bones: Normal for patient age. No aggressive lesion. IMPRESSION: 1. No acute traumatic findings within the abdomen or pelvis. Hepatic trauma grade: None. Spleen trauma grade: None. Kidney trauma grade: None. Normal [facility] CT Abdomen and Pelvis W cont rast Seth 08-02-2024 RADIOLOGY RADIOLOGY [facility] CT Abdomen and Pelvis W cont rast IVOrdered By: Edson Head on 08-02-2024 [facility] Work Phone: CT Cervical spine WO contras ton 08-02-2024 Radiology Study observation (narrative) [facility] CT Orbit WO contraston 08-02 Radiology Study observation (narrative) [facility] Carbon dioxide, total [Moles /volume] in Central venous bloodOrdered By: Pieter Morgan on 08-02-2024 CO2 [Moles/Vol] 22.0 mmol/L 21.0-32.0 [facility] Chloride assayOrdered By: Racheal Morgan on 08-02-2024 Chloride [Moles/Vol] 98 mmol/L 98-108 [facility] Emergency Department Summary on 08-02-2024 Emergency Department Summary [facility] Medical Records Department [address] [place] [address] Emergency Department Summary 08/02/24 MR#: [id number] Acct: [id number] Name: LINDSAY ACUNA Rep #: [id number] : [id number] From: Pieter Morgan MD [...] the EMR. states they returned home from [facility] about 1.5-2 weeks ago, and they both had colds. He is better, but she is "on round 2." [facility] Medical History Paroxysmal atrial fibrillation [...] normal respir (more content not included)... Normal [facility] Eosinophil percentageOrdered By: Pieter Morgan on 08-02-2024 Eosinophils/100 WBC (Bld) 1.0 % 0-5 [facility] Erythrocyte distribution wid th ratioOrdered By: Pieter Morgan on 08-02-2024 Erythrocyte distribution width (RBC) [Ratio] 13.3 % 11.6-14.6 [facility] Erythrocyte distribution wid th standard deviationOrdered By: Pieter Morgan on 08-02-2024 Erythrocyte distribution width (RBC) [Entitic vol] 45.3 fL High 35.1-43.9 [facility] Erythrocyte distribution width (RBC) [Ratio] 45.3 fl High 35.1-43.9 [facility] Estimation of creatinine mackenzie aranceOrdered By: Pieter Morgan on 08-02-2024 Estimated Creatinine Clearance Calc 27.14 ml/min Low 50-250 [facility] GFR/1.73 sq M.predicted lana g non-blacks MDRD (S/P/Bld) [Vol rate/Area]Ordered By: Pieter Morgan on 08-02-2024 Estimated GFR (MDRD) Non-Af Amer 29 Low >60 [facility] Comment on above: mL/min/1.73m2 CKD-EP I Creatinine Equation (2020) Glomerular filtration rate ( GFR) estimation/1.73 sq m using serum, plasma, or whole bOrdered By: Pieter Morgan on 08-02-2024 GFR/1.73 sq M.predicted among non-blacks MDRD (S/P/Bld) [Vol rate/Area] 29 mL/min/{1.73_m2} Low >60 [facility] Comment on above: mL/min/1.73m2 CKD-EP I Creatinine Equation (2020) HEMOGLOBIN A1Con 08-02-2024 Average glucose Estimated from glycated hemoglobin (Bld) [Mass/Vol] 177 mg/dL [facility] HbA1c (Bld) [Mass fraction] 7.8 % High 4.7 - 5.6 % [facility] Interpretation and review of laboratory results Abnormal [facility] Glucose [Mass/Vol] 177 mg/dL Normal [facility] Comment on above: Performed By: #### H EMOGC #### [facility] (DEFAULT) [address] [place] [address] Hemoglobin A1C HPLC 7.8 % High 4.7-5.6 [facility] Comment on above: Performed By: #### H EMOGC #### [facility] (DEFAULT) [address] [place] [address] HEPATIC FUNCTION PANELon Albumin [Mass/Vol] 3.5 g/dL 3.5 - 5.0 g/dL [facility] ALP [Catalytic activity/Vol] 117 U/L 32 - 126 U/L [facility] ALT [Catalytic activity/Vol] 10 U/L 9 - 48 U/L [facility] AST [Catalytic activity/Vol] 17 U/L 10 - 39 U/L [facility] Bilirubin [Mass/Vol] 0.6 mg/dL NINF - 1.5 mg/dL [facility] Bilirubin.direct [Mass/Vol] 0.1 mg/dL NINF - 0.3 mg/dL [facility] Protein [Mass/Vol] 6.3 g/dL Low 6.4 - 8.3 g/dL [facility] Albumin [Mass/Vol] 3.5 g/dL Normal 3.5-5.0 [facility] Comment on above: Performed By: #### H EMO #### [facility] (DEFAULT) [address] [place] [address] ALP [Catalytic activity/Vol] 117 U/L Normal 32-126 [facility] Comment on above: Performed By: #### H EMOGC #### [facility] (DEFAULT) [address] [place] [address] ALT [Catalytic activity/Vol] 10 U/L Normal 9-48 [facility] Comment on above: Performed By: #### H EMOGC #### [facility] (DEFAULT) [address] [place] [address] AST [Catalytic activity/Vol] 17 U/L Normal 10-39 [facility] Comment on above: Performed By: #### H EMOGC #### [facility] (DEFAULT) [address] [address] Bilirubin [Mass/Vol] 0.6 mg/dL Normal <1.5 [facility] Comment on above: Performed By: #### H EMOGC #### [facility] (DEFAULT) [address] [address] Bilirubin.indirect [Mass/Vol] 0.1 mg/dL Normal <0.3 [facility] Comment on above: Performed By: #### H EMOGC #### [facility] (DEFAULT) [address] [address] Protein [Mass/Vol] 6.3 g/dL Low 6.4-8.3 [facility] Comment on above: Performed By: #### H EMOGC #### [facility] (DEFAULT) [address] [address] HIGH SENSITIVITY TROPONIN I - SINGLE ORDERon 08-02-2024 Interpretation and review of laboratory results Normal [facility] Troponin I.cardiac High sensitivity method [Mass/Vol] 9 ng/L NINF - 34 ng/L [facility] hs-Troponin I 9 ng/L Normal <34 [facility] Comment on above: Order Comment: 2 [...] By: #### B LDCULT #### [facility] (DEFAULT) [address] [place] [address] Hematocrit Auto (Bld) [Volum e fraction]Ordered By: Pieter Morgan on 03-21-2025 Hematocrit (Bld) [Volume fraction] 42.0 % 37-47 [facility] Hemoglobin measurementOrdere d By: Pieter Cathy on 08-02-2024 Hemoglobin (Bld) [Mass/Vol] 13.8 g/dL 12.0-15.0 [facility] Immature granulocytes/100 WB C Auto (Bld)Ordered By: Pieter Morgan on 08-02-2024 Immature granulocytes/100 WBC (Bld) 0.300 % 0.0-0.9 [facility] Comment on above: IG% - Immature Granu locytes (promyelocytes, myelocytes and metamyelocytes) > 1% indicates that a LEFT SHIFT is Present. Influenza virus A and B and SARS-CoV-2 (COVID-19) and Respiratory syncytial virus RNAOrdered By: Pieter Morgan on 08-02-2024 SARS-CoV-2 (COVID-19) RNA CHUCKY+probe Ql (Unsp spec) [facility] International normalized rat io (INR) calculationOrdered By: Pieter Morgan on 08-02-2024 INR Coag (Bld) [Relative time] 1.1 {INR} [facility] L499.0042on 08-02-2024 Trop T High Sen Normal <=14 [facility] Comment on above: Result Comment: Canc elled via OM: Order cancelled - Patient discharged Performed By: #### L 499.0042 ####[facility] [address] [place], [address] L499.0043on 08-02-2024 Trop T High Sen Normal <=14 [facility] Comment on above: Result Comment: Canc elled via OM: Order cancelled - Patient discharged Performed By: #### L 499.0043 ####[facility] [address] [place], [address] L501.4021on 08-02-2024 Trop T High Sen 38 ng/L High <=14 [facility] Comment on above: Performed By: #### L 300.4310, L501.4021, L300.3900, L500.2500, L100.0100 ####[facility] [address] [place], [address] LIPID PANEL WITH REFLEX TO Jaiden CONRAD LDLon 08-02-2024 Cholesterol [Mass/Vol] 141 mg/dL NINF - 200 mg/dL [facility] Cholesterol in HDL [Mass/Vol] 38 mg/dL Low 40 - PINF mg/dL [facility] Cholesterol in LDL [Mass/Vol] 84 mg/dL 0 - 99 mg/dL [facility] Cholesterol non HDL [Mass/Vol] 103 mg/dL NINF - 130 mg/dL [facility] Cholesterol.total/Alta sterol in HDL [Mass ratio] 3.7 {ratio} NINF - 4.5 [facility] Triglyceride [Mass/Vol] 96 mg/dL NINF - 150 mg/dL [facility] Calculated LDL Cholesterol 84 mg/dL Normal 0-99 [facility] Comment on above: Result Comment: [<10 0 mg/dL: Optimal] [100-129 mg/dL: Near Optimal] [130-159 mg/dL: Borderline High] [160-189 mg/dL: High] [>189 mg/dL: Very High] Performed By: #### [facility] #### [facility] (DEFAULT) [address] [place] [address] Cholesterol [Mass/Vol] 141 mg/dL Normal <200 [facility] Comment on above: Result Comment: [<20 0 mg/dL: Desirable] [200-239 mg/dL: Borderline High] [>239 mg/dL: High] Performed By: #### [facility] #### [facility] (DEFAULT) [address] [place] [address] Cholesterol in HDL [Mass/Vol] 38 mg/dL Low >=40 [facility] Comment on above: Result Comment: [<40 mg/dL: Low (High Risk)] [>59 mg/dL: High (Low Risk)] Performed By: #### [facility] #### [facility] (DEFAULT) [address] [place] [address] Non HDL Cholesterol 103 mg/dL Normal <130 [facility] Comment on above: Performed By: #### H EMO #### [facility] (DEFAULT) [address] [place] [address] Total Cholesterol/HDL Ratio 3.7 Normal <4.5 [facility] Comment on above: Performed By: #### H EMO #### [facility] (DEFAULT) [address] [place] [address] Triglyceride [Mass/Vol] 96 mg/dL Normal <150 O [facility] Comment on above: Result Comment: [<15 0 mg/dL: Desirable] [150-199 mg/dL: Borderline] [200-499 mg/dL: High] [>500 mg/dL: Very High] Performed By: #### H EMO #### [facility] (DEFAULT) [address] [place] [address] Lymphocytes Auto (Unsp spec) [#/Vol]Ordered By: Pieter Morgan on 08-02-2024 Lymphocytes (Bld) [#/Vol] 1.56 10*3/uL 0.83-4.51 [facility] Lymphocytes/100 WBC Auto (Un sp spec)Ordered By: Pieter Morgan on 08-02-2024 Lymphocytes/100 WBC (Bld) 17.9 % Low 19-41 [facility] M100.678on 08-02-2024 M100.678 Pending SARS-CoV-2 (COVID 19) Negative INFLUENZA A Negative INFLUENZA B Negative RSV PCR Negative Normal [facility] Comment on above: Performed By: #### M 100.678 #### [facility] [address] [place], [address] MAGNESIUMon 08-02-2024 Magnesium [Mass/Vol] 1.2 mg/dL Low 1.6 - 2 .6 mg/dL [facility] Magnesium [Mass/Vol] 1.2 mg/dL Low 1.6-2.6 [facility] Comment on above: Performed By: #### H EMO #### [facility] (DEFAULT) [address] [place] [address] MCV (mean corpuscular volume ) determinationOrdered By: Pieter Morgan on 08-02-2024 MCV (RBC) [Entitic vol] 92.1 fL 81-99 [facility] Mean corpuscular hemoglobin (MCH) determinationOrdered By: Pieter Morgan on 08-02-2024 MCH (RBC) [Entitic mass] 30.3 pg 27.0-32.0 [facility] Mean corpuscular hemoglobin concentration (MCHC) determinationOrdered By: Pieter Morgan on 08-02-2024 MCHC (RBC) [Mass/Vol] 32.9 g/dL 32-36 [facility] Mean platelet volume determi nationOrdered By: Pieter Morgan on 08-02-2024 Platelet mean volume (Bld) [Entitic vol] 10.7 fL 6.2-12.0 [facility] Monocyte percentageOrdered B y: Pieter Morgan on 08-02-2024 Monocytes/100 WBC (Bld) 8.9 % 0-10 [facility] NT-PRO B-TYPE NATRIURETIC PE PTIDEon 08-02-2024 Natriuretic peptide B (Bld) [Mass/Vol] 1115 pg/mL High <=540 [facility] Comment on above: Performed By: #### [facility] #### [facility] (DEFAULT) [address] [place] [address] Neutrophil percentageOrdered By: Pieter Morgan on 08-02-2024 Neutrophils/100 WBC (Bld) 71.4 % High 47-70 [facility] No Panel Informationon 08-02 Radiology Study observation (narrative) [facility] Interpretation and review of laboratory results [facility] No Panel InformationOrdered By: Pieter Morgan on 08-02-2024 Troponin T High Sensitivity 38 ng/L High <14 [facility] Nucleated red blood cell per centageOrdered By: Pieter Morgan on 08-02-2024 Nucleated RBC/100 WBC (Bld) [Ratio] 0 % 0-5 [facility] PT,INR,PTTon 08-02-2024 aPTT Coag (PPP) [Time] 26.9 s OS [facility] INR Coag (Bld) [Relative time] 1.1 {INR} 0.9 - 1.1 [facility] Interpretation and review of laboratory results Normal [facility] PT Coag (PPP) [Time] 13.9 s [facility] aPTT Coag (Bld) [Time] 26.9 s Normal 24.0-34.3 [facility] Comment on above: Performed By: #### P TPTT ####[facility] (DEFAULT)[address] [place] [address] INR Coag (PPP) [Relative time] 1.1 {INR} Normal 0.9-1.1 [facility] Comment on above: Performed By: #### P TPTT ####[facility] (DEFAULT)[address] [place] [address] PT Coag (PPP) [Time] 13.9 s Normal 11.9-14.2 [facility] Comment on above: Performed By: #### P TPTT ####[facility] (DEFAULT)[address] [place] [address] Partial Thromboplast Timeon 08-02-2024 aPTT Coag (Bld) [Time] 28.4 s Normal 24.1-36.2 [facility] Comment on above: Performed By: #### L 300.4310, L501.4021, L300.3900, L500.2500, L100.0100 #### [facility] [address] [place], [address] Platelet countOrdered By: Racheal Morgan on 08-02-2024 Platelets (Bld) [#/Vol] 214 10*3/uL 150-450 [facility] Potassium (Unsp spec) [Mass/ Vol]Ordered By: Pieter Morgan on 08-02-2024 Potassium [Moles/Vol] 4.2 mmol/L 3.3-5.1 [facility] Potassium measurement (mass/ volume)Ordered By: Pieter Morgan on 08-02-2024 Potassium (Unsp spec) [Mass/Vol] 4.2 mmol/L 3.3-5.1 [facility] Prothrombin Time w/INRon INR Coag (PPP) [Relative time] 1.1 {INR} Normal [facility] Comment on above: Performed By: #### L 300.4310, L501.4021, L300.3900, L500.2500, L100.0100 #### [facility] [address] [place], [address] PT Coag (PPP) [Time] 14.1 s Normal 11.7-14.9 [facility] Comment on above: Performed By: #### L 300.4310, L501.4021, L300.3900, L500.2500, L100.0100 #### [facility] [address] [place], [address] Prothrombin timeOrdered By: Pieter Morgan on 08-02-2024 PT Coag (PPP) [Time] 14.1 s 11.7-14.9 [facility] RBC Auto (Bld) [#/Vol]Ordere d By: Pieter Morgan on 08-02-2024 RBC (Bld) [#/Vol] 4.56 10*6/uL 4.2-5.4 [facility] SCREEN: MRSA/MSSAon 08-03-19 25 Methicillin Resistant S. Aureus By Pcr Negative Normal Negative [facility] Comment on above: Order Comment: Colle [...] by the Clinical Microbiology Laboratory at [facility]. It has not been cleared or approved by the FDA.The laboratory is regulated under CLIA as qualified to perform high-complexity testing. This test is used for clinical purposes. It should not be regarded as investigational or for research. Performed By: #### T YPEC #### [facility] (DEFAULT) [address] [place] [address] Staphylococcus Aureus By Pcr Negative Normal Negative [facility] Comment on above: Order Comment: Colle [...] by the Clinical Microbiology Laboratory at [facility]. It has not been cleared or approved by the FDA.The laboratory is regulated under CLIA as qualified to perform high-complexity testing. This test is used for clinical purposes. It should not be regarded as investigational or for research. Performed By: #### T YPEC #### [facility] (DEFAULT) [address] [place] [address] STROKE Brain/Head without Co nton 08-02-2024 STROKE Brain/Head without Cont [facility] Imaging Services [address] [place] [address] 203131 STROKE Brain/Head without Cont MR#: [id number] Acct: [id number] Name: LINDSAY ACUNA Rep #: [id number] : 1945 F 78 From: Kameron Cardoso MD PCP: Dr. Kameron Caruso MD Status: [facility] ER Study: STROKE Brain/Head without Cont Date of Exam: 0 08/02/24 Exam# [id number] Ordering Dr: Pieter Morgan MD EXAM: CT [...] at 1250 hours. Reading Location: [facility] CC: Dr. Pieter Morgan MD; Dr. Kameron Caruso MD Engineering Inspector: Signed Normal [facility] STROKE CTA Head AND Neck W/C onon 08-02-2024 STROKE CTA Head AND Neck W/Con [facility] Imaging Services [address] [place] [address] [id number] STROKE CTA Head AND Neck W/Con MR#: [id number] Acct: [id number] Name: LINDSAY ACUNA Rep #: [id number] : 1945 F 78 From: August ibrahim MD PCP: Dr. Kameron Caruso MD Status: REG ER Study: STROKE CTA Head AND Neck W/Con Date of Exam: 0 08/02/24 Exam# [id number] Ordering Dr: Pieter Morgan MD PROCEDURE: STROKE [...] impression: No significant stenosis seen. Reading Location: [place] [address] CC: Dr. Pieter Morgan MD; Dr. Kameron Caruso MD Engineering Inspector: Signed Normal [facility] Serum creatinine measurement (mass/volume)Ordered By: Pieter Morgan on 08-02-2024 Creatinine [Mass/Vol] 1.74 mg/dL High 0.70-1.20 [facility] Serum glucose measurement (m ass/volume)Ordered By: Pieter Morgan on 08-02-2024 Glucose [Mass/Vol] 235 mg/dL High 70-99 [facility] Serum or plasma calcium dayna urement (mass/volume)Ordered By: Pieter Morgan on 08-02-2024 Calcium [Mass/Vol] 9.0 mg/dL 7.6-11.0 [facility] Serum or plasma urea nitroge n measurement (mass/volume)Ordered By: Pieter Morgan on 08-02-2024 Urea nitrogen [Mass/Vol] 20 mg/dL High 4-19 [facility] Sodium levelOrdered By: Evert Morgan on 08-02-2024 Sodium [Moles/Vol] 132 mmol/L Low 133-145 [facility] TSH W/FT4 REFLEXon Interpretation and review of laboratory results Normal [facility] TSH Qn 1.662 m[IU]/L [facility] TSH 1.662 uIU/mL Normal 0.550-4.780 [facility] Comment on above: Performed By: #### X M #### [facility] (DEFAULT) [address] [place] [address] TYPE AND SCREENon 08-02-2024 ABO/RH(D) TYPE Negative [facility] Specimen Expiration 08/05/2024 23:59 [facility] ABO/RH(D) TYPE Negative Normal [facility] Comment on above: Performed By: #### X M #### [facility] (DEFAULT) [address] [place] [address] Specimen Expiration 08/05/2024 23:59 Normal [facility] Comment on above: Performed By: #### X M #### [facility] (DEFAULT) [address] [place] [address] URINALYSIS REFLEX TO CULTURE PERFORMABLEOrdered By: Namita De La Cruz on 08-02-2024 Appearance (U) Clear Clear [facility] Bacteria LM Ql (Urine sed) PRESENT Abnormal ABSENT [facility] Color (U) Yellow Yellow [facility] Epithelial cells.squamous LM Ql (Urine sed) 0-2/hpf 0-2/hpf, 3-5/hpf = 1+ [facility] Glucose Test strip (U) [Mass/Vol] 500 mg/dL Abnormal Negative [facility] Interpretation and review of laboratory results Abnormal [facility] Ketones (U) [Mass/Vol] Negative Negative OS [facility] Leukocyte esterase Test strip Ql (U) Moderate Abnormal Negative [facility] Nitrite Ql (U) Negative Negative [facility] pH (U) 6.5 [pH] 5.0 - 7.0 [facility] Protein (U) [Mass/Vol] Negative Negative OS [facility] RBC (U) [#/Vol] Small Abnormal Negative [facility] RBC LM.HPF (Urine sed) [#/Area] 3-5 Abnormal [facility] Specific gravity (U) [Rel density] 1.022 1.001 - 1.035 [facility] Urobilinogen (U) [Mass/Vol] 0.2 E.U./dL 0.2 E.U/dL, 1.0 E.U/dL [facility] WBC LM.HPF (Urine sed) [#/Area] /[HPF] Abnormal [facility] URINALYSIS REFLEX TO CULTURE PERFORMABLEon 08-02-2024 Appearance (U) Clear Normal Clear [facility] Comment on above: Order Comment: For i ndwelling catheters, specimen collection is acceptable on catheter day 1 and 2 only. ? Performed By: #### U [id number] #### [facility] (DEFAULT) [address] [place] [address] Bacteria PRESENT Abnormal ABSENT [facility] Comment on above: Order Comment: For i ndwelling catheters, specimen collection is acceptable on catheter day 1 and 2 only. ? Performed By: #### U [id number] #### [facility] (DEFAULT) [address] [place] [address] Blood Urine Small Abnormal Negative [facility] Comment on above: Order Comment: For i ndwelling catheters, specimen collection is acceptable on catheter day 1 and 2 only. ? Performed By: #### U [id number] #### [facility] (DEFAULT) [address] [place] [address] Color (U) Yellow Normal Yellow [facility] Comment on above: Order Comment: For i ndwelling catheters, specimen collection is acceptable on catheter day 1 and 2 only. ? Performed By: #### U [id number] #### [facility] (DEFAULT) [address] [place] [address] Glucose Ql (U) 500 mg/dL Abnormal Negative [facility] Comment on above: Order Comment: For i ndwelling catheters, specimen collection is acceptable on catheter day 1 and 2 only. ? Performed By: #### U [id number] #### [facility] (DEFAULT) [address] [place] [address] Ketones Ql (U) Negative Normal Negative [facility] Comment on above: Order Comment: For i ndwelling catheters, specimen collection is acceptable on catheter day 1 and 2 only. ? Performed By: #### U [id number] #### [facility] (DEFAULT) [address] [place] [address] Leukocyte esterase Test strip Ql (U) Moderate Abnormal Negative [facility] Comment on above: Order Comment: For i ndwelling catheters, specimen collection is acceptable on catheter day 1 and 2 only. ? Performed By: #### U [id number] #### [facility] (DEFAULT) [address] [address] Nitrites Urine Negative Normal Negative [facility] Comment on above: Order Comment: For i ndwelling catheters, specimen collection is acceptable on catheter day 1 and 2 only. ? Performed By: #### U [id number] #### [facility] (DEFAULT) [address] [address] pH (U) 6.5 [pH] Normal 5.0-7.0 [facility] Comment on above: Order Comment: For i ndwelling catheters, specimen collection is acceptable on catheter day 1 and 2 only. ? Performed By: #### U [id number] #### [facility] (DEFAULT) [address] [address] Protein Urine Negative Normal Negative [facility] Comment on above: Order Comment: For i ndwelling catheters, specimen collection is acceptable on catheter day 1 and 2 only. ? Performed By: #### U [id number] #### [facility] (DEFAULT) [address] [place] [address] RBC Urine 3-5 Abnormal 0-2 [facility] Comment on above: Order Comment: For i ndwelling catheters, specimen collection is acceptable on catheter day 1 and 2 only. ? Performed By: #### U [id number] #### [facility] (DEFAULT) [address] [address] Specific [place] Urine 1.022 Normal 1.001-1.035 O [facility] Comment on above: Order Comment: For i ndwelling catheters, specimen collection is acceptable on catheter day 1 and 2 only. ? Performed By: #### U [id number] #### [facility] (DEFAULT) [address] [address] Squamous/Epithelial Cells, Urine 0-2/hpf Normal 0-2/hpf, 3-5/hpf = 1+ [facility] Comment on above: Order Comment: For i ndwelling catheters, specimen collection is acceptable on catheter day 1 and 2 only. ? Performed By: #### U [id number] #### [facility] (DEFAULT) [address] [address] Urobilinogen Urine 0.2 E.U./dL Normal 0.2 E.U/d L, 1.0 E.U/dL [facility] Comment on above: Order Comment: For i ndwelling catheters, specimen collection is acceptable on catheter day 1 and 2 only. ? Performed By: #### U [id number] #### [facility] (DEFAULT) [address] [address] WBC LM.HPF (Urine sed) [#/Area] /[HPF] Abnormal 0 - 5 [facility] Comment on above: Order Comment: For i ndwelling catheters, specimen collection is acceptable on catheter day 1 and 2 only. ? Performed By: #### U [id number] #### [facility] (DEFAULT) [address] [place] [address] VON WILLEBRAND FACTOR AGon 0 08-02-2024 Von Willebrand Factor Antigen 230 % High 50-180 [facility] Comment on above: Performed By: #### [facility] #### [facility] (DEFAULT) [address] [id number] White blood cell (WBC) count Ordered By: Pieter Morgan on 08-02-2024 WBC (Bld) [#/Vol] 8.7 10*3/uL 4.4-11.0 [facility] XR Elbow - right 2 Viewson 0 08-02-2024 Radiology Study observation (narrative) [facility] XR Humerus - right Viewson 0 08-02-2024 Radiology Study observation (narrative) [facility] XR Wrist - right 3 Viewson 0 08-02-2024 Radiology Study observation (narrative) [facility] aPTT Coag (PPP)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 SPECIMENOrdering Facility: [facility] Address: [address] [place] [address] Result Comment: <200 mg/dL, Desirable 200-239 mg/dL, Borderline high >239 mg/dL, High Performed By: #### 3 016-3, 07759-5, 04952-6 ####[facility] LABCLIA [id number] [address] [place] Cholesterol in HDL [Mass/Vol] 41 mg/dL Normal >39 [facility] Comment on above: Order Comment: Nici men Type: BLOOD SPECIMENOrdering Facility: [facility] Address: [address] [place] [address] Result Comment: 40-5 9 mg/dL, Acceptable >59 mg/dL, High: Negative risk factor for coronary heart disease <40 mg/dL, Low: Positive risk factor for coronary heart disease Performed By: #### 3 016-3, 23912-9, 76442-7 ####[facility] [facility] LABCLIA [id number] [address] [place] Cholesterol in LDL [Mass/Vol] 85 mg/dL Normal <100 [facility] Comment on above: Order Comment: Nici men Type: BLOOD SPECIMENOrdering Facility: [facility] Address: [address] [place] [address] Result Comment: <100 mg/dL, Optimal 100-129 mg/dL, Near optimal/above optimal 130-159 mg/dL, Borderline high 160-189 mg/dL, High >189 mg/dL, Very high Secondary prevention optimal LDL Cholesterol levels are recommended to be < 70 mg/dL Performed By: #### 3 016-3, 15857-5, 64434-5 ####[facility] LABCLIA [id number] [place] [address] [place] Cholesterol in LDL/Cholesterol in HDL [Mass ratio] 2.07 {ratio} Normal <2.54 [facility] Comment on above: Order Comment: Speci men Type: BLOOD SPECIMENOrdering Facility: [facility] Address: [address] [place] [address] Result Comment: Refe rence: 1. National Cholesterol Education Program ATP III Guideline At-A-Glance Quick Desk Reference: National Heart, Lung, and Blood Wheeler. National Institutes of Health. 2001: NIH Publication No. 01-3305. 2. An International Atherosclerosis Society position paper: global recommendations for the management of dyslipidemia: executive summary, Atherosclerosis. 2014: 232(2):410-413. Performed By: #### 3 016-3, 29996-8, 30268-4 ####[facility] LABIA [id number] [place] [address] [place] Cholesterol in VLDL [Mass/Vol] 30 mg/dL High <30 [facility] Comment on above: Order Comment: Speci men Type: BLOOD SPECIMENOrdering Facility: [facility] Address: [address] [place] [address] Performed By: #### 3 016-3, 95183-0, 53691-2 ####[facility] LABCLIA [id number] [place] [address] [place] Cholesterol non HDL [Mass/Vol] 115 mg/dL Normal <130 [facility] Comment on above: Order Comment: Speci men Type: BLOOD SPECIMENOrdering Facility: [facility] Address: [address] [place] [address] Result Comment: <130 mg/dL, Optimal 130-159 mg/dL, Near optimal/above optimal 160-189 mg/dL, Borderline high 190-219 mg/dL, High >219 mg/dL, Very high Secondary prevention optimal non HDL Cholesterol levels are recommended to be <100 mg/dL Performed By: #### 3 016-3, 83069-0, 02860-7 ####[facility] LABCLIA [id number] [place] [address] [place] Cholesterol.total/Alta sterol in HDL [Mass ratio] 3.80 {ratio} Normal <5.10 [facility] Comment on above: Order Comment: Speci men Type: BLOOD SPECIMENOrdering Facility: [facility] Address: [address] [place] [address] Performed By: #### 3 016-3, 21151-5, ####[facility] LABCLIA [id number] [address] STATES [facility] FASTING TIME 12 hrs Normal [facility] Comment on above: Order Comment: Speci men Type: BLOOD SPECIMENOrdering Facility: [facility] Address: [address] [place] [address] Performed By: #### 3 016-3, , ####[facility] LABCLIA [id number] [place] [address] [place] Triglyceride [Mass/Vol] 148 mg/dL Normal <150 [facility] Comment on above: Order Comment: Speci men Type: BLOOD SPECIMENOrdering Facility: [facility] Address: [address] [place] [address] Result Comment: <150 mg/dL, Normal 150-199 mg/dL, Borderline high 200-499 mg/dL, High >499 mg/dL, Very high Performed By: #### 3 016-3, 93601-1, 27024-6 ####[facility] LABCLIA [id number] [place] [address] [place] TSH SerPl-aCncon 11-27-2023 TSH Qn 1.870 m[IU]/L Normal 0.270-4.200 [facility] Comment on above: Order Comment: Speci men Type: BLOOD SPECIMENOrdering Facility: [facility] Address: [address] [facility] [address] Performed By: #### 3 016-3, 92882-9, 14736-1 ####[facility] LABCLIA [id number] [place] RODRIGUEZDESK [id number] OF [facility] CNOVon 10-10-2023 CNOV Office Visit (UCWSTR ) LINDSAY ACUNA ([id number]) 1945 F Date Time Provider Department 10/10/23 7:30 AM DAVID DUPREE [facility] During your visit today, we recorded the following information about you: Temperature Pulse Respiration Blood pressure 97.5 degrees 58/minute 18/minute 128/82 Weight 82.1 kg David Dupree 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 Normal [facility] CNOVon 09-29-2023 CNOV Office Visit (UCTR ) LINDSAY ACUNA ([id number]) 1945 F Date Time Provider Department 09/29/23 2:15 PM RADHA LEVINE [facility] During your visit today, we recorded the [...] Acute onset of symptoms was 2 days NETWORK LIAISON +bilateral hands, forearms +nape of neck +face +itching +redness Denies pain. Denies fever or chills Denies malaise or fatigue Denies new lotions, soaps, or medicines States that she was working out in the garden the same day the rash erupted. The history is provided by the patient. No excavating contractor was used. Rash This is a new [...] mouth daily before breakfast. blood sugar diagnostic (RevenewTOUCH ULTRA TEST) test strip Test Blood Sugar [...] 1 tablet by mouth once daily. lancets (RevenewTOUCH DELICA PLUS LANCET) 30 gauge Test blood sugars 1 time daily. Dx: Type 2 DM Controlled E11.9. Insulin: no Chlorhexidine Gluconate (PERIDEX) 0.12 % solution Use 15 mL as instructed twice daily. Rinse around mouth for 30 seconds then expectorate blood sugar diagnostic (RevenewTOUCH ULTRA TEST STRIP) test strip Use to [...] (more content not included)... Normal [facility] Glucose,Bedsideon 04-16-2019 Glucose [Mass/Vol] 161 mg/dL High 70-100 [facility] Comment on above: Result Comment: Test performed by glucose meter. Results may be 10%-15% lower than serum/plasma values. (CLIA ID [id number]) Performed By: #### B GLU #### [facility] [employer] [address] [place] [address] Surgical Pathologyon 019 Surgical Pathology [id number] [facility]PART[facility] PATHOLOGY AND LABORATORY MEDICINE [address] [place] [address] FINAL SURGICAL PATHOLOGY REPORT ___ NAME: LINDSAY ACUNA : 1945 73 Y F BILLING NO.: [id number] LOCATION: 1XEO PROCEDURE 01/09/2019 DATE: SURGEON: SANTIAGO RENDON M.D. RECEIVED 01/09/2019 DATE: ATTENDING: SANTIAGO RENDON M.D. REPORT DATE: 01/10/2019 COPIES TO: ___ [...] characteristics determined by the clinical laboratories of [facility]. They have not been cleared by the [...] on decalcified specimens. Professional Performing Location: [address] [address]. DEPARTMENT OF PATHOLOGY AND LABORATORY MEDICINE [place], [place] [address] Normal [facility] .Auto Diffon 08-22-2018 Ammonia mass conc (P) 1.10 10 3/mcL High 0.15-1.00 [facility] ([place]) Comment on above: Performed By: #### B MP, GFR #### [facility] [address] [place], [place] [address] Basophils #/vol (Bld) 0.00 10 3/mcL Normal 0.00-0.19 [facility] ([place]) Comment on above: Performed By: #### B MP, GFR #### [address] [address] Basophils/100 WBC (Bld) 0.3 % Normal 0.0-2.5 [facility] ([place]) Comment on above: Performed By: #### B MP, GFR #### [address] [address] Eosinophils #/vol (Bld) 0.00 10 3/mcL Normal 0.00-0.40 [facility] ([place]) Comment on above: Performed By: #### Roby MP, GFR #### [address] [address] Eosinophils/100 WBC (Bld) 0.2 % Normal 0.0-7.0 [facility] ([place]) Comment on above: Performed By: #### B MP, GFR #### [address] [address] Lymphocytes #/vol (Bld) 2.20 10 3/mcL Normal 0.77-3.85 [facility] ([place]) Comment on above: Performed By: #### Roby MP, GFR #### [address] [address] Lymphocytes/100 WBC (Bld) 20.5 % Normal 10.0-50.0 [facility] ([place]) Comment on above: Performed By: #### B MP, GFR #### [address] [address] Monocytes/100 WBC (Bld) 10.5 % Normal 1.7-13.0 A [facility] ([place]) Comment on above: Performed By: #### B MP, GFR #### [address] [address] Neutrophils/100 WBC (Bld) 68.5 % Normal 37.0-80.0 [facility] ([place]) Comment on above: Performed By: #### B MP, GFR #### [address] [address] .GFRon 08-22-2018 GFR Non- 33 ml/min/1.73sqm Normal [facility] ([place]) Comment on above: Result Comment: GFR [...] Performed By: #### B MP, GFR #### [place] [address] #### JOHN, DORY, ANEU #### [facility] [address] GFR 40 ml/min/1.73sqm Normal [facility] ([place]) Comment on above: Result Comment: GFR [...] Performed By: #### B MP, GFR #### [place] [address] #### CBC, ADIFF, ANEU #### [address] [address] .NEUABSon 08-22-2018 Neutrophils #/vol (Bld) 7.40 10 3/mcL High 2.85-6.16 [facility] ([place] Comment on above: Performed By: #### B MP, GFR #### [place] [address] BMPon 08-22-2018 [place]cium mass conc 8.3 mg/dL Low 8.4-10.2 [facility] ([place] Comment on above: Performed By: #### B MP, GFR #### [place] [address] #### CBC, ADIFF, ANEU #### [place] [address] Chloride molar conc 104 mmol/L Normal 98-107 [facility] ([place]) Comment on above: Performed By: #### B MP, GFR #### [place] [address] #### CBC, ADIFF, ANEU #### [place] [address] CO2 molar conc 25 mmol/L Normal 23-31 [facility] ([place] Comment on above: Performed By: #### B MP, GFR #### [place] [address] #### CBC, ADIFF, ANEU #### [address] [address] Creatinine mass conc 1.53 mg/dL High 0.55-1.02 [facility] ([place]) Comment on above: Performed By: #### B MP, GFR #### [place] [address] #### CBC, ADIFF, ANEU #### [place] [address] Electrolyte Balance 10.0 mEq/L Normal [facility] ([place] Comment on above: Performed By: #### B MP, GFR #### [place] [address] #### CBC, ADIFF, ANEU #### [place] [address] Glucose mass conc 149 mg/dL High 83-110 [facility] ([place] Comment on above: Performed By: #### B MP, GFR #### [address] [address] #### CBC, ADIFF, ANEU #### [address] [address] Potassium molar conc 4.3 mmol/L Normal 3.5-5.1 [facility] ([place] Comment on above: Performed By: #### B MP, GFR #### [place] [address] #### CBC, ADIFF, ANEU #### [address] [address] Sodium molar conc 139 mmol/L Normal 136-145 [facility] ([place] Comment on above: Performed By: #### B MP, GFR #### [place] [address] #### CBC, ADIFF, ANEU #### [address] [address] Urea nitrogen mass conc 32 mg/dL High 7-18 A [facility] ([place] Comment on above: Performed By: #### B MP, GFR #### [place] [address] #### CBC, ADIFF, ANEU #### [address] [address] Urea nitrogen/Creatinine mass ratio 21 ratio Normal 7-27 [facility] ([place] Comment on above: Performed By: #### B MP, GFR #### [place] [address] #### CBC, ADIFF, ANEU #### [address] [address] CBCon 08-22-2018 Erythrocyte distribution width Ratio (RBC) 12.6 % Normal 11.5-14.5 [facility] ([place] Comment on above: Performed By: #### B MP, GFR #### [place] [address] Hematocrit Volume Fraction (Bld) 27.5 % Low 37.0-47.0 [facility] ([place] Comment on above: Performed By: #### B MP, GFR #### [place] [address] Hemoglobin mass conc (Bld) 9.2 G/dL Low 12.0-16.0 [facility] ([place] Comment on above: Performed By: #### B MP, GFR #### [place] [address] MCH Entitic mass (RBC) 30.1 pg Normal 27.0-31.2 [facility] ([place]) Comment on above: Performed By: #### B MP, GFR #### [place] [address] MCHC mass conc (RBC) 33.5 G/dL Normal 33.0-37.0 [facility] ([place] Comment on above: Performed By: #### B MP, GFR #### [place] [address] MCV Entitic volume (RBC) 89.8 fL Normal 80.0-94.0 [facility] ([place] Comment on above: Performed By: #### B MP, GFR #### [place] [address] Platelet mean volume Entitic volume (Bld) 9.3 fL Normal 7.4-10.4 [facility] ([place] Comment on above: Performed By: #### B MP, GFR #### [place] [address] Platelets #/vol (Bld) 224 10 3/mcL Normal 130-400 [facility] ([place]) Comment on above: Performed By: #### B MP, GFR #### [place] [address] RBC #/vol (Bld) 3.06 10 6/mcL Low 4.20-5.40 [facility] ([place]) Comment on above: Performed By: #### B MP, GFR #### [place] [address] WBC #/vol (Bld) 10.80 10 3/mcL Normal 4.60-10.80 [facility] ([place] Comment on above: Performed By: #### B MP, GFR #### [facility] [address] [place] [address] XR KNEE 1 OR 2 VIEWS RIGHTon [...] AM Sign Date: 08/21/2018 9:55:37 AM Normal [facility] ([place]) CT KNEE W/O CONTRAST RIGHTon 08-09-2018 [...] PM Sign Date: 08/09/2018 5:04:12 PM Normal [facility] ([place]) .Auto Diffon 08-06-2018 Ammonia mass conc (P) 0.80 10 3/mcL Normal 0.15-1.00 [facility] ([place]) Comment on above: Performed By: #### C BC, ADIFF, ANEU #### [address] [address] #### A1C #### [address] [address] Basophils #/vol (Bld) 0.10 10 3/mcL Normal 0.00-0.19 [facility] ([place] Comment on above: Performed By: #### C BC, ADIFF, ANEU #### [address] [address] #### A1C #### [address] [address] Basophils/100 WBC (Bld) 0.6 % Normal 0.0-2.5 [facility] ([place]) Comment on above: Performed By: #### C BC, ADIFF, ANEU #### [place] [address] #### A1C #### [address] [address] Eosinophils #/vol (Bld) 0.20 10 3/mcL Normal 0.00-0.40 [facility] ([place] Comment on above: Performed By: #### C BC, ADIFF, ANEU #### [place] [address] #### A1C #### [address] [address] Eosinophils/100 WBC (Bld) 1.7 % Normal 0.0-7.0 [facility] ([place] Comment on above: Performed By: #### C BC, ADIFF, ANEU #### [place] [address] #### A1C #### [address] [address] Lymphocytes #/vol (Bld) 1.90 10 3/mcL Normal 0.77-3.85 [facility] ([place]) Comment on above: Performed By: #### C BC, ADIFF, ANEU #### [address] [address] #### A1C #### [facility] [address] [place] [address] Lymphocytes/100 WBC (Bld) 20.8 % Normal 10.0-50.0 [facility] ([place] Comment on above: Performed By: #### C BCDORY, ANEU #### [address] [address] #### A1C #### [address] [address] Monocytes/100 WBC (Bld) 9.3 % Normal 1.7-13.0 [facility] ([place]) Comment on above: Performed By: #### C DORY SMITH, ANEU #### [address] [address] #### A1C #### [address] [address] Neutrophils/100 WBC (Bld) 67.6 % Normal 37.0-80.0 [facility] ([place] Comment on above: Performed By: #### C DORY SMITH, ANEU #### [address] [address] #### A1C #### [address] [address] .GFRon 08-06-2018 GFR 51 ml/min/1.73sqm Normal [facility] ([place] Comment on above: Result Comment: GFR [...] Performed By: #### B MP, GFR #### [address] [address] GFR Non- 42 ml/min/1.73sqm Normal [facility] ([place]) Comment on above: Result Comment: GFR [...] Performed By: #### B MP, GFR #### [place] [address] .NEUABSon 08-06-2018 Neutrophils #/vol (Bld) 6.20 10 3/mcL High 2.85-6.16 [facility] ([place] Comment on above: Performed By: #### C DORY SMITH, ANEU #### [address] [address] #### A1C #### [place] [address] A1Con 08-06-2018 Hemoglobin A1c/Hemoglobin.total mass fraction (Bld) 7.9 % High 4.5-6.2 [facility] ([place] Comment on above: Performed By: #### C DORY SMITH, ANEU #### [address] [address] #### A1C #### [place] [address] BMPon 08-06-2018 Calcium mass conc 9.2 mg/dL Normal 8.4-10.2 [facility] ([place] Comment on above: Performed By: #### B MP, GFR #### [facility] [address] Chloride molar conc 105 mmol/L Normal 98-107 [facility] ([place] Comment on above: Performed By: #### B MP, GFR #### [address] [address] CO2 molar conc 27 mmol/L Normal 23-31 [facility] ([place] Comment on above: Performed By: #### B MP, GFR #### [address] [address] Creatinine mass conc 1.25 mg/dL High 0.55-1.02 [facility] ([place] Comment on above: Performed By: #### B MP, GFR #### [place] [id number] Electrolyte Balance 11.0 mEq/L Normal [facility] ([place] Comment on above: Performed By: #### B MP, GFR #### [place] [address] Glucose mass conc 70 mg/dL Low 83-110 [facility] ([place] Comment on above: Performed By: #### B MP, GFR #### [address] [address] Potassium molar conc 5.0 mmol/L Normal 3.5-5.1 [facility] ([place] Comment on above: Performed By: #### B MP, GFR #### [place] [address] Sodium molar conc 143 mmol/L Normal 136-145 [facility] ([place] Comment on above: Performed By: #### B MP, GFR #### [address] [address] Urea nitrogen mass conc 26 mg/dL High 7-18 [facility] ([place] Comment on above: Performed By: #### B MP, GFR #### [place] [id number] Urea nitrogen/Creatinine mass ratio 21 ratio Normal 7-27 [facility] ([place] Comment on above: Performed By: #### B MP, GFR #### [address] [address] CBCon 03-25-2019 Erythrocyte distribution width Ratio (RBC) 12.2 % Normal 11.5-14.5 [facility] ([place] Comment on above: Performed By: #### C DORY SMITH ANEU #### [address] [address] #### A1C #### [place] [address] Hematocrit Volume Fraction (Bld) 34.6 % Low 37.0-47.0 [facility] ([place] Comment on above: Performed By: #### C DORY SMITH ANEU #### [address] [address] #### A1C #### [place] [address] Hemoglobin mass conc (Bld) 11.7 G/dL Low 12.0-16.0 [facility] ([place] Comment on above: Performed By: #### C DORY SMITH ANEU #### [place] [address] #### A1C #### [place] [address] MCH Entitic mass (RBC) 30.6 pg Normal 27.0-31.2 [facility] ([place] Comment on above: Performed By: #### C DORY SMITH ANEU #### [address] [address] #### A1C #### [place] [address] MCHC mass conc (RBC) 33.7 G/dL Normal 33.0-37.0 [facility] ([place] Comment on above: Performed By: #### C DORY SMITH ANEU #### [place] [address] #### A1C #### [place] [address] MCV Entitic volume (RBC) 90.9 fL Normal 80.0-94.0 [facility] ([place] Comment on above: Performed By: #### C DORY SMITH, ANEU #### [address] [address] #### A1C #### [address] [address] Platelet mean volume Entitic volume (Bld) 8.8 fL Normal 7.4-10.4 [facility] ([place] Comment on above: Performed By: #### C BC, ADIFF, ANEU #### [address] [address] #### A1C #### [address] [address] Platelets #/vol (Bld) 355 10 3/mcL Normal 130-400 [facility] ([place]) Comment on above: Performed By: #### C BC, ADIFF, ANEU #### [address] [address] #### A1C #### [address] [address] RBC #/vol (Bld) 3.81 10 6/mcL Low 4.20-5.40 [facility] ([place]) Comment on above: Performed By: #### C BC, ADIFF, ANEU #### [address] [address] #### A1C #### [address] [address] WBC #/vol (Bld) 9.20 10 3/mcL Normal 4.60-10.80 [facility] ([place] Comment on above: Performed By: #### C BC, ADIFF, ANEU #### [address] [address] #### A1C #### [address] [address] Vital Signs Date Time Vital Sign Value Performing Clinician Facility 10-02-2024 09:21-0400 Body height 167.[address] Kameron Caruso MD Work Phone: [facility] 10-02-2024 09:21-0400 Diastolic blood pressure 71 mm[Hg] Dr. Kameron Caruso MD Work Phone: [facility] 10-02-2024 09:21-0400 Heart rate 77 /min Dr. Kameron Caruso MD Work Phone: [facility] 10-02-2024 09:21-0400 Respiratory rate 16 /min Dr. Kameron Caruso MD Work Phone: [facility] 10-02-2024 09:21-0400 Systolic blood pressure 111 mm[Hg] Dr. Kameron Caruso MD Work Phone: [facility] 09-09-2024 09:02-0400 Heart rate 100 /min SILVINO SCHEATZLE DO [employer] 09-09-2024 07:58-0400 Blood Pressure Cuff Size SILVINO SCHEATZLE DO [employer] 09-09-2024 07:58-0400 Blood Pressure Location SILVINO SCHEATZLE DO [employer] 09-09-2024 07:58-0400 Blood Pressure Method SILVINO SCHEATZLE DO [employer] 09-09-2024 07:58-0400 Body temperature 96.8 [degF] SILVINO SCHEATZLE DO [employer] 09-09-2024 07:58-0400 Diastolic Blood Pressure Non-Invasive 78 mm[Hg] SILVINO SCHEATZLE DO [employer] 09-09-2024 07:58-0400 Heart rate 110 /min SILVINO SCHEATZLE DO [employer] 09-09-2024 07:58-0400 Reason For Taking VItal Signs SILVINO SCHEATZLE DO [employer] 09-09-2024 07:58-0400 Respiratory rate 16 /min SILVINO SCHEATZLE DO [employer] 09-09-2024 07:58-0400 Systolic Blood Pressure Non-Invasive 122 mm[Hg] SILVINO ICDATZLE DO Ashley Tariqwn 09-09-2024 02:45-0400 Body temperature 97.7 [degF] SILVINO CIDATZLE DO Ashley Tariqwn 09-09-2024 02:45-0400 Diastolic Blood Pressure Non-Invasive 60 mm[Hg] SILVINO CIDATZLE DO Ashley Tariqwn 09-09-2024 02:45-0400 Heart rate 92 /min SILVINO CIDATZLE DO Ashley Warnern 09-09-2024 02:45-0400 Respiratory rate 16 /min SILVINO CIDATZLE DO Ashley Warnern 09-09-2024 02:45-0400 Systolic Blood Pressure Non-Invasive 108 mm[Hg] SILVINO CIDATZLE DO Ashley Warnern 09-08-2024 22:28-0400 Blood Pressure Cuff Size SILVINO CIDATZLE DO Ashley Warnern 09-08-2024 22:28-0400 Blood Pressure Location SILVINO CIDATZLE DO Ashley Warnern 09-08-2024 22:28-0400 Blood Pressure Method SILVINO CIDATZLE DO Ashley Tariqwn 09-08-2024 22:28-0400 Body temperature 97.88 [degF] SILVINO CIDATZLE DO Ashley Tariqwn 09-08-2024 22:28-0400 Diastolic Blood Pressure Non-Invasive 54 mm[Hg] SILVINO CIDATZLE DO [facility] Tariqwn 09-08-2024 22:28-0400 Heart rate 92 /min SILVINO CIDATZLE DO [facility] 09-08-2024 22:28-0400 Reason For Taking VItal Signs SILVINO CIDATZLE DO Ashley Garber 09-08-2024 22:28-0400 Respiratory rate 16 /min SILVINO CIDATZLE DO Ashley Garber 09-08-2024 22:28-0400 Systolic Blood Pressure Non-Invasive 118 mm[Hg] SILVINO PALAKATZLE DO Ashley Garber 09-08-2024 18:21-0400 Heart rate 90 /min SILVINO CIDATZLE DO [facility] 09-08-2024 09:08-0400 Blood Pressure Cuff Size SILVINO CIDATZLE DO [facility] 09-08-2024 09:08-0400 Blood Pressure Location SILVINO PALAKATZLE DO Ashley Garber 09-08-2024 09:08-0400 Blood Pressure Method SILVINO CIDATZLE DO [facility] 09-08-2024 09:08-0400 Heart rate 114 /min SILVINO CIDATZLE DO [facility] Garber 09-08-2024 09:08-0400 Reason For Taking VItal Signs SILVINO PALAKATZLE DO [facility] 09-04-2024 10:54-0400 Body temperature 96.62 [degF] SILVINO PALAKATZLE DO [facility] 09-03-2024 00:26-0400 Body temperature 97.34 [degF] SILVINO CIDATZLE DO [facility] 08-30-2024 22:54-0400 Body temperature 98.06 [degF] [facility] 08-26-2024 10:36-0400 Body weight 76 kg SILVINO CIDATZLE DO [facility] 08-19-2024 06:00-0400 Body weight 75.3 kg SILVINO SCHEATZLE DO [facility] 08-15-2024 14:27-0400 Body height 170.2 cm SILVINO CIDATZLE DO [facility] 08-15-2024 14:27-0400 Body weight 75.4 kg SILVINO CIDATZLE DO [facility] 08-15-2024 14:27-0400 Body weight 26.03 kg/m2 SILVINO SCHEATZLE DO [facility] 08-15-2024 09:02-0400 Diastolic blood pressure 69 mm[Hg] Prema Ramos MD Work Phone: [facility] 08-15-2024 09:02-0400 Systolic blood pressure 128 mm[Hg] Prema Ramos MD Work Phone: [facility] 08-15-2024 07:28-0400 Heart rate 86 /min Prema Ramos MD Work Phone: [facility] 08-15-2024 07:18-0400 Body temperature 97.3 [degF] Prema Ramos MD Work Phone: [facility] 08-15-2024 07:18-0400 Respiratory rate 23 /min Prema Ramos MD Work Phone: [facility] 08-15-2024 07:18-0400 SaO2% (BldA) [Mass fraction] 95 % Prema Ramos MD Work Phone: [facility] 08-05-2024 08:00-0400 Body height 170.2 cm Prema Ramos MD Work Phone: [facility] 08-05-2024 08:00-0400 Body mass index (BMI) [Ratio] 26.94 kg/m2 Prema Ramos MD Work Phone: [facility] 08-05-2024 08:00-0400 Body weight 78.02 kg Prema Ramos MD Work Phone: [phone] [place] [address] 08-02-2024 13:52-0400 Body temperature 98 [degF] Dr. Kameron Caruso MD Work Phone: [phone] [place] [address] 08-02-2024 13:52-0400 Diastolic blood pressure 91 mm[Hg] Dr. Kameron Caruso MD Work Phone: 8(267)[phone] [place] [address] 08-02-2024 13:52-0400 Heart rate 109 /min Dr. Kameron Caruso MD Work Phone: 9(951)811-375709 [place] [address] 08-02-2024 13:52-0400 Respiratory rate 16 /min Dr. Kameron Caruso MD Work Phone: 1([phone])[phone] [place] [address] 08-02-2024 13:52-0400 SaO2% (BldA) [Mass fraction] 98 % Dr. Kameron Caruso MD Work Phone: 7(593)[phone] [place] [address] 08-02-2024 13:52-0400 Systolic blood pressure 153 mm[Hg] Dr. Kameron Caruso MD Work Phone: 7(269)309-701509 [place] [address] 08-02-2024 12:46-0400 Body height 167.[address] Kameron Caruso MD Work Phone: 9(603)[phone] [place] [address] 08-02-2024 12:46-0400 Body mass index (BMI) [Ratio] 26.6 kg/m2 Dr. Kameron Caruso MD Work Phone: 6(502)609-297809 [place] [address] 08-02-2024 12:46-0400 Body weight [address] Kameron Caruso MD Work Phone: 6(317)[phone] [place] [address] 06-26-2024 09:39-0500 Body mass index (BMI) [Ratio] 27.25 kg/m2 Emma Canaleshof GREENHOUSE MANAGER.DOUBLER OPERATOR Work Phone: [facility] 06-26-2024 09:39-0500 Body weight 78.93 kg Emma Canaleshofreddie GREENHOUSE MANAGER.DOUBLER OPERATOR Work Phone: [facility] 06-26-2024 09:39-0500 Diastolic blood pressure 88 mm[Hg] Emma Allyhof GREENHOUSE MANAGER.DOUBLER OPERATOR Work Phone: [facility] 06-26-2024 09:39-0500 Heart rate 93 /min Emma Allyhof GREENHOUSE MANAGER.DOUBLER OPERATOR Work Phone: [facility] 06-26-2024 09:39-0500 Respiratory rate 16 /min Emma Allyhof GREENHOUSE MANAGER.DOUBLER OPERATOR Work Phone: [facility] 06-26-2024 09:39-0500 SaO2% (BldA) [Mass fraction] 98 % Emmadanielle Canaleshof GREENHOUSE MANAGER.DOUBLER OPERATOR Work Phone: [facility] 06-26-2024 09:39-0500 Systolic blood pressure 144 mm[Hg] Emmadanielle Canaleshof GREENHOUSE MANAGER.DOUBLER OPERATOR Work Phone: [facility] 05-31-2024 08:56-0500 Diastolic blood pressure 84 mm[Hg] Kameron Caruso MD Work Phone: [facility] 05-31-2024 08:56-0500 Systolic blood pressure 136 mm[Hg] Kameron Caruso MD Work Phone: [facility] 05-31-2024 08:47-0500 Body mass index (BMI) [Ratio] 27.28 kg/m2 Kameron Caruso MD Work Phone: [facility] 05-31-2024 08:47-0500 Body weight 79 kg Kameron Caruso MD Work Phone: [facility] 05-31-2024 08:47-0500 Heart rate 100 /min Kameron Caruso MD Work Phone: [facility] 05-31-2024 08:47-0500 Respiratory rate 18 /min Kameron Caruso MD Work Phone: [facility] 11-28-2023 09:42-0400 Diastolic blood pressure 78 mm[Hg] Kameron Caruso MD Work Phone: [facility] 11-28-2023 09:42-0400 Systolic blood pressure 142 mm[Hg] Kameron Caruso MD Work Phone: [facility] 11-28-2023 09:41-0400 Body mass index (BMI) [Ratio] 27.82 kg/m2 Kameron Caruso MD Work Phone: [facility] 11-28-2023 09:41-0400 Body weight 80.56 kg Kameron Caruso MD Work Phone: [facility] 11-28-2023 09:41-0400 Heart rate 68 /min Kameron Caruso MD Work Phone: [facility] 11-28-2023 09:41-0400 Respiratory rate 18 /min Kameron Caruso MD Work Phone: [facility] 10-10-2023 07:31-0400 Body mass index (BMI) [Ratio] 28.35 kg/m2 David Pendlebury GREENHOUSE MANAGER.DOUBLER OPERATOR Work Phone: [facility] 10-10-2023 07:31-0400 Body temperature 97.5 [degF] David Pendlebury GREENHOUSE MANAGER.DOUBLER OPERATOR Work Phone: [facility] 10-10-2023 07:31-0400 Body weight 82.1 kg David Pendleantonia GREENHOUSE MANAGER.DOUBLER OPERATOR Work Phone: [facility] 10-10-2023 07:31-0400 Diastolic blood pressure 82 mm[Hg] David Pendlebury GREENHOUSE MANAGER.DOUBLER OPERATOR Work Phone: [facility] 10-10-2023 07:31-0400 Heart rate 58 /min David Pendleantonia GREENHOUSE MANAGER.DOUBLER OPERATOR Work Phone: [facility] 10-10-2023 07:31-0400 Respiratory rate 18 /min David Pendlebury GREENHOUSE MANAGER.DOUBLER OPERATOR Work Phone: [facility] 10-10-2023 07:31-0400 SaO2% (BldA) [Mass fraction] 100 % David Dupree GREENHOUSE MANAGER.DOUBLER OPERATOR Work Phone: [facility] 10-10-2023 07:31-0400 Systolic blood pressure 128 mm[Hg] David Dupree GREENHOUSE MANAGER.DOUBLER OPERATOR Work Phone: [facility] 09-29-2023 14:14-0400 Body mass index (BMI) [Ratio] 29 kg/m2 Radha Levine GREENHOUSE MANAGER.DOUBLER OPERATOR Work Phone: [facility] 09-29-2023 14:14-0400 Body temperature 97.81 [degF] Radha Levine GREENHOUSE MANAGER.DOUBLER OPERATOR Work Phone: [facility] 09-29-2023 14:14-0400 Body weight 84 kg Radha Levine GREENHOUSE MANAGER.DOUBLER OPERATOR Work Phone: [facility] 09-29-2023 14:14-0400 Diastolic blood pressure 91 mm[Hg] Radha Levine GREENHOUSE MANAGER.DOUBLER OPERATOR Work Phone: [facility] 09-29-2023 14:14-0400 Heart rate 54 /min Radha Levine GREENHOUSE MANAGER.DOUBLER OPERATOR Work Phone: [facility] 09-29-2023 14:14-0400 Respiratory rate 18 /min Radha Levine GREENHOUSE MANAGER.DOUBLER OPERATOR Work Phone: [facility] 09-29-2023 14:14-0400 SaO2% (BldA) [Mass fraction] 99 % Radha Levine GREENHOUSE MANAGER.DOUBLER OPERATOR Work Phone: [facility] 09-29-2023 14:14-0400 Systolic blood pressure 148 mm[Hg] Radha Levine GREENHOUSE MANAGER.DOUBLER OPERATOR Work Phone: [facility] 05-27-2022 09:42-0500 Body weight 83.83 kg Kameron Caruso MD Work Phone: [facility] 05-27-2022 09:42-0500 Diastolic blood pressure 84 mm[Hg] Kameron Caruso MD Work Phone: [facility] 05-27-2022 09:42-0500 Heart rate 68 /min Kameron Caruso MD Work Phone: [facility] 05-27-2022 09:42-0500 Respiratory rate 16 /min Kameron Caruso MD Work Phone: [facility] 05-27-2022 09:42-0500 Systolic blood pressure 136 mm[Hg] Kameron Caruso MD Work Phone: [facility] 03-02-2022 10:52-0400 Diastolic blood pressure 76 mm[Hg] Emma Tannhof GREENHOUSE MANAGER.DOUBLER OPERATOR Work Phone: [facility] 03-02-2022 10:52-0400 Heart rate 92 /min Emma Tannhof GREENHOUSE MANAGER.DOUBLER OPERATOR Work Phone: [facility] 03-02-2022 10:52-0400 Respiratory rate 18 /min Emma Tannhof GREENHOUSE MANAGER.DOUBLER OPERATOR Work Phone: [facility] 03-02-2022 10:52-0400 Systolic blood pressure 140 mm[Hg] Emma Tannhof GREENHOUSE MANAGER.DOUBLER OPERATOR Work Phone: [facility] 11-23-2021 09:39-0400 Body weight 83.1 kg Kameron Caruso MD Work Phone: [facility] 11-23-2021 09:39-0400 Diastolic blood pressure 80 mm[Hg] Kameron Caruso MD Work Phone: [facility] 11-23-2021 09:39-0400 Heart rate 84 /min Kameron Caruso MD Work Phone: [facility] 11-23-2021 09:39-0400 Respiratory rate 16 /min Kameron Caruso MD Work Phone: [facility] 11-23-2021 09:39-0400 Systolic blood pressure 138 mm[Hg] Kameron Caruso MD Work Phone: [facility] 10-16-2019 10:09-0400 BP Diastolic 72 mm[Hg] [facility] [place] [facility] [place] 10-16-2019 10:09-0400 BP Systolic 144 mm[Hg] Santiago Miller [facility] [place] , [place] 10-16-2019 10:09-0400 Pulse (Heart Rate) 62 /min Santiago Miller [facility] [place], [place] 10-16-2019 10:09-0400 Pulse Oximetry 98 % Santiago Miller [facility] , [place] 10-16-2019 10:09-0400 Respiratory Rate 18 /min [facility] [place] 10-16-2019 09:15-0400 BMI (Body Mass Index) 29.44 kg/m2 Santiago Miller [facility] [place], [place] 10-16-2019 09:15-0400 Body Temperature 97.81 [degF] Santiago Miller [facility] [place] 10-16-2019 09:15-0400 Body weight 85.28 kg Santiago Miller [facility] , [place] 10-16-2019 09:15-0400 Height 170.2 cm Santiago Miller [facility] , [place] 01-09-2019 12:06-0400 BP Diastolic 73 mm[Hg] Santiago Miller [facility] [place] , [place] 01-09-2019 12:06-0400 BP Systolic 121 mm[Hg] Santiago Miller [facility] , [place] 01-09-2019 11:50-0400 Pulse (Heart Rate) 64 /min Santiago Miller [facility], [place] 01-09-2019 11:50-0400 Pulse Oximetry 100 % Santiago Miller [facility] , [place] 01-09-2019 11:50-0400 Respiratory Rate 18 /min Santiago Miller [facility] [place] , [place] 01-09-2019 10:28-0400 BMI (Body Mass Index) 28.82 kg/m2 Santiago Clements - [place], [place] 01-09-2019 10:28-0400 Body weight 83.46 kg Santiago Miller [facility] , [place] 01-09-2019 10:28-0400 Height 170.2 cm Santiago Miller [facility] , [place] 01-09-2019 10:27-0400 Body Temperature 97.5 [degF] Santiago Miller [facility] [place] Encounters Encounter Date Encounter Type Care Provider Facility Start: 03-18-2025 ambulatory Efewongbe Oleghe OLS Fa cility:[facility] Start: 03-11-2025 ambulatory Efewongbe Oleghe OLS Fa cility:[facility] Start: 03-04-2025 ambulatory Efewongbe Oleghe OLS Fa cility:[facility] Start: 02-25-2025 ambulatory Efewongbe Oleghe OLS Fa cility:[facility] Start: 02-18-2025 ambulatory Efewongbe Oleghe OLS Fa cility:[facility] Start: 02-18-2025 Safia Martin - [place] Start: 02-11-2025 ambulatory Efewongbe Oleghe OLS Fa cility:[facility] Start: 02-11-2025 Safia Martin - [place] Start: 02-04-2025 ambulatory Efewongbe Oleghe OLS Fa cility:[facility] Start: 02-04-2025 Safia Martin - [place] Start: 01-28-2025 ambulatory Efewongbe Oleghe OLS Fa cility:[facility] Start: 01-28-2025 Safia Martin - [place] Start: 01-21-2025 ambulatory Kameron Lemus y:[facility] Start: 01-21-2025 Safia Torres Start: 01-14-2025 ambulatory Kameron Lemus y:[facility] Start: 01-14-2025 Safia Martin - [place] Start: 01-07-2025 End: 01-07-[address] Kameron Caruso MD Work Phone: -[facility] Start: 01-07-2025 End: 01-07-2025 Safia Torres Start: 01-07-2025 End: 01-07-2025 ambulatory Kameron Caruso Facility:[facility] Start: 12-31-2024 End: 12-31-[address] Kameron Caruso MD Work Phone: [facility] Start: 12-31-2024 End: 12-31-2024 Dr. Safia Ruelas MD -[facility] Work Phone: Start: 12-24-2024 ambulatory Efewongskye Westone OLS Fa cility:[facility] Start: 12-24-2024 Safia Forde L - [place] Start: 12-17-2024 ambulatory Efewongbe Oleghe OLS Fa cility:[facility] Start: 12-17-2024 Safia SOMMER L - [place] Start: 12-10-2024 ambulatory Efewongbe Oleghe OLS Fa cility:[facility] Start: 12-10-2024 Safia SOMMER L - [place] Start: 12-03-2024 ambulatory Efewongbe Oleghe OLS Fa cility:[facility] Start: 12-03-2024 Safia SOMMER L - [place] Start: 11-28-2024 End: 11-28-[address] Kameron Caruso MD Work Phone: [facility] Start: 11-28-2024 End: 11-28-2024 Bret WILKERSON -[facility] Work Phone: Start: 11-26-2024 ambulatory Efsherry Westone OLS Fa cility:[facility] Start: 11-26-2024 Registered Referred Safia CANAS - [place] Start: 11-26-2024 Safia Forde L - [place] Start: 11-25-2024 End: 11-25-[address] [facility] [place] Start: 11-25-2024 Registered Referred Safia CANAS - [place] Start: 11-25-2024 End: 11-25-2024 Efewjosé antonio Torres Start: 11-25-2024 End: 11-25-2024 ambulatory Efewongbe Olebonie OLS Facility:[facility] Start: 11-20-2024 End: 11-20-[address] Kameron Caruso MD Work Phone: [facility] Start: 11-20-2024 End: 11-20-2024 [facility] Start: 11-19-2024 ambulatory Efewongbe Enricoe OLS Fa cility:[facility] Start: 11-19-2024 Registered Referred Safia Torres Start: 11-19-2024 Safia Torres Start: 11-12-2024 End: 11-12-[address] Kameron Caruso MD Work Phone: -[facility] Torres Start: 11-12-2024 Registered Referred Safia Torres Start: 11-12-2024 End: 11-12-2024 Safia Torres Start: 11-12-2024 End: 11-12-2024 ambulatory Efewongbe Enricoe OLS Facility:[facility] Start: 11-05-2024 ambulatory Efewongbe Enricoe OLS Fa cility:[facility] Start: 11-05-2024 Registered Referred Safia Torres Start: 11-05-2024 Safia Torres Start: 10-30-2024 End: 10-30-[address] Kameron Caruso MD Work Phone: [facility] Start: 10-30-2024 End: 10-30-2024 [facility] encounter [facility] Work Phone: Start: 10-30-2024 End: 10-30-2024 [facility] Start: 10-29-2024 End: 10-29-[address] Safia Ruelas MD -[facility] Work Phone: Start: 10-29-2024 End: 10-29-[address] Kameron Caruso MD Work Phone: [facility] Start: 10-29-2024 Registered Referred Safia Torres Start: 10-29-2024 End: 10-29-2024 Dr. Safia Ruelas MD -[facility] Work Phone: Start: 10-29-2024 End: 10-29-2024 ambulatory Safia Ruelas OLS Facility:[facility] Start: 10-23-2024 ambulatory Safia Ruelas OLS Fa cility:[facility] Start: 10-23-2024 Registered Referred Safia Torres Start: 10-23-2024 Safia Torres Start: 10-22-2024 End: 10-22-2024 Patient encounter procedure [facility] Work Phone: Start: 10-22-2024 End: 10-22-[address] Kameron Caruso MD Work Phone: [facility] Start: 10-22-2024 Registered Referred Safia Torres Start: 10-22-2024 End: 10-22-2024 Bret WILKERSON [facility] Work Phone: Start: 10-15-2024 ambulatory Efsherry Ruelas OLS Fa cility:[facility] Start: 10-15-2024 Registered Referred Safia Torres Start: 10-15-2024 Safia Torres Start: 10-09-2024 End: 10-09-[address] Kameron Caruso MD Work Phone: [facility] Start: 10-09-2024 End: 10-09-2024 Patient encounter procedure Bret [facility] Work Phone: Start: 10-09-2024 End: 10-09-2024 Bret WILKERSON -[facility] Work Phone: Start: 10-08-2024 ambulatory Efsherry Ruelas OLS Fa cility:[facility] Start: 10-08-2024 Registered Referred Safia Torres Start: 10-08-2024 Safia Torres Start: 10-02-2024 End: 10-02-[address] Mj Benavides MD -[facility] Work Phone: Start: 10-02-2024 End: 10-02-2024 Dr. Mj Benavides MD -[facility] Work Phone: Start: 10-02-2024 End: 10-02-[address] Kameron Caruso MD Work Phone: [facility] Work Phone: Start: 10-01-2024 ambulatory Efsherry Ruelas OLS Fa cility:[facility] Start: 10-01-2024 Registered Referred Safia Torres Start: 10-01-2024 Safia Torres Start: 09-29-2024 ambulatory Efewjosé antonio Ruelas OLS Fa cility:[facility] Start: 09-29-2024 Registered Referred Safia Torres Start: 09-29-2024 Safia Forde Veronica Torres Start: 09-24-2024 ambulatory Efewongbe Enricoe OLS Fa cility:[facility] Start: 09-24-2024 Registered Referred Safia oTrres Start: 09-24-2024 Safia Torres Start: 09-17-2024 ambulatory Safia Yusuf cility:[facility] Start: 09-17-2024 Registered Referred Safia Torres Start: 09-17-2024 Safia Torres Start: 09-11-2024 End: 09-11-2024 ambulatory Bret Snyder NP Facility:[facility] Start: 09-11-2024 End: 09-11-2024 Patient encounter procedure Bret Snyder [employer] -[facility] Work Phone: Start: 09-11-2024 End: 09-11-2024 Bret Snyder [employer] -[facility] Work Phone: Start: 09-10-2024 End: 09-10-[address] Safia Ruelas MD -[facility] Work Phone: Start: 09-10-2024 End: 09-10-2024 ambulatory Kameron Caruso Facility:[facility] Start: 09-10-2024 Registered Referred Safia Torres Start: 09-10-2024 End: 09-10-2024 [facility]: Start: 08-30-2024 End: 08-30-2024 Telephone encounter Kameron Caruso MD Work Phone: [facility] Comment on above: [facility] request[facility] verbal agree to follow Start: 08-15-2024 End: 09-09-2024 Evaluation and management of inpatient SILVINO PEARL DO Ashley Garcia Start: 08-09-2024 Evaluation and manag ement of inpatient KAMERON CARUSO Facility:[facility] Start: 08-06-2024 Evaluation and manag ement of inpatient CATA [facility] Start: 08-02-2024 End: 08-02-2024 ambulatory JUVENTINO ROGERS Facility:[facility] Start: 08-02-2024 End: 08-15-2024 Evaluation [...] Kameron Caruso MD Work Phone: [facility] [place] Comment on above: medication not on cu rrent med list Start: 06-26-2024 End: 06-26-2024 Office outpatient visit 25 minutes Emma Glasgow APRN.CNP Work Phone: [facility] [place] Comment on above: Atrial fibrillation, unspecified type (HCC) (Primary Dx); Hypothyroidism, unspecified type; Need for malaria prophylaxis Start: 06-26-2024 End: 06-26-2024 ambulatory EMMA GLASGOW Facility:[facility] Start: 06-25-2024 ambulatory KAMERON CARUSO Facil ity:[facility] Start: 06-24-2024 End: 06-24-2024 Telephone encounter Kameron Caruso MD Work Phone: [facility] [place] Comment on above: Patient Update Start: 06-11-2024 End: 06-11-2024 Telephone encounter Kameron Caruso MD Work Phone: [facility] [place] Comment on above: Results Start: 06-11-2024 End: 06-11-2024 ambulatory [facility] Facility:[facility] Start: 06-10-2024 End: 06-11-2024 Telephone encounter Kameron Caruso MD Work Phone: [facility] [place] Comment on above: Medication Problem Start: 05-31-2024 End: 05-31-2024 [facility] Facility:[facility] Start: 05-31-2024 End: 05-31-2024 Patient encounter procedure Kameron Caruso MD Work Phone: [facility] [place] Comment on above: Essential [...] unspecified type (HCC) Start: 05-23-2024 End: 05-23-2024 [facility] Facility:[facility] Start: 11-28-2023 End: 11-28-2023 [facility] Start: 11-28-2023 End: 11-28-2023 Patient encounter procedure Kameron Caruso MD Work Phone: [facility] [place] Comment on above: 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, unspecified CKD stage, unspecified whether half-way insulin use (HCC) (Primary Dx); Essential hypertension, benign; Chronic kidney disease, stage 3a (HCC); Hyperlipidemia, unspecified hyperlipidemia type; Hypothyroidism, unspecified type; Edema of left lower leg; Memory loss; Type 2 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, without long-term current use of insulin (HCC) Start: 11-27-2023 End: 11-27-2023 ambulatory [facility] Facility:[facility] Start: 10-10-2023 End: 10-10-2023 [facility] Facility:[facility] Start: 10-10-2023 End: 10-10-2023 Office outpatient visit 25 minutes David Dupree APRN.CNP Work Phone: [facility] Comment on above: Rash (Primary Dx) Start: 09-29-2023 End: 09-29-2023 ambulatory KAMERON CARUSO Facility:[facility] Start: 09-29-2023 End: 09-29-2023 Patient encounter procedure Radha Levine GREENHOUSE MANAGER.DOUBLER OPERATOR Work Phone: [facility] Comment on above: Allergic contact lexi matitis due to plant (Primary Dx) Start: 09-19-2023 Refill Kameron nixon MD Work Phone: [facility] [place] Comment on above: Refill Request Start: 04-08-2023 Telephone encounter Kameron bucio MD Work Phone: [address] [place] [address] Comment on above: Refill Request Start: 11-25-2022 Telephone encounter Kameron bucio MD Work Phone: [facility] [place] Comment on above: Patient Question Start: 05-27-2022 End: 05-27-2022 Patient encounter procedure Kameron Caruso MD Work Phone: [facility] [place] Comment on above: Essential hypertensi on, benign (Primary Dx); Hypothyroidism, unspecified type; Type 2 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, without long-term current use of insulin (HCC); Hyperlipidemia, unspecified hyperlipidemia type; Chronic kidney disease, stage 3a (HCC); Edema of left lower leg; Wellness examination Start: 05-27-2022 End: 05-27-2022 Patient encounter status Kameron Caruso MD Work Phone: [facility] [place] Start: 04-11-2022 Refill Kameron nixon MD Work Phone: [facility] Comment on above: Refill Request Start: 03-02-2022 ambulatory Kameron nixon MD Work Phone: [facility] [place] Comment on above: Back Pain Start: 03-02-2022 End: 03-02-2022 Patient encounter procedure Emma Glasgow GREENHOUSE MANAGER.DOUBLER OPERATOR Work Phone: [facility] [place] Comment on above: Acute midline low ba ck pain without sciatica (Primary Dx) Start: 01-11-2022 Refill Mj ORTIZ RN.DOUBLER OPERATOR [facility] Comment on above: Refill Request Start: 01-11-2022 Refill Kameron nixon MD [facility] Comment on above: Refill Request Start: 12-16-2021 Telephone encounter Kameron bucio MD [facility] Comment on above: Diabetic Testing Sup plies Start: 11-23-2021 End: 11-23-2021 Refill Kameron Caruso MD [facility] Comment on above: 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, unspecified CKD stage, unspecified whether superintendent terminal insulin use (HCC) (Primary Dx); Essential hypertension, benign; Hyperlipidemia, unspecified hyperlipidemia type; Stage 3b chronic kidney disease (HCC); Hypothyroidism, unspecified type; Memory loss Start: 10-14-2021 Refill Kameron nixon MD Work Phone: [facility] Comment on above: Refill Request Start: 09-27-2021 Telephone encounter Kameron bucio MD Work Phone: [facility] Comment on above: information requeste d/rxs needed Start: 09-13-2021 Telephone encounter Kameron bucio MD Work Phone: [facility] Comment on above: Patient Question; Me dication Request Start: 10-16-2019 End: 10-16-2019 Subsequent hospital visit by physician Santiago Rendon Work Phone: [facility] Comment on above: Arrived Start: 01-09-2019 End: 01-09-2019 Subsequent hospital visit by physician Santiago Rendon Work Phone: [facility] Start: [...] 12-03-2024 Platelet mean volume determination Dr. Kameron Caruos MD Work Phone: Start: 11-26-2024 Blood count [...] OT Start: 08-15-2024 Glucose measurement, blood Christos Gibson MD Work Phone: Start: 08-15-2024 Glucose measurement, blood Christos Gibson MD Work Phone: Start: 08-15-2024 Assay of magnesium Abram chavez Nadine GREENHOUSE MANAGER-DOUBLER OPERATOR Work Phone: Start: 08-15-2024 Glucose measurement, blood Christos Gibson MD Work Phone: Start: 08-14-2024 Glucose measurement, blood Christos Gibson MD Work Phone: Start: 08-14-2024 Glucose measurement, blood Christos Gibson MD Work Phone: Start: 08-14-2024 Glucose measurement, blood Christos Gibson MD Work Phone: Start: 08-14-2024 Assay of magnesium Abram chavez Nadine GREENHOUSE MANAGER-DOUBLER OPERATOR Work Phone: Start: 08-13-2024 Glucose measurement, blood Christos Gibson MD Work Phone: Start: 08-13-2024 Glucose measurement, blood Christos Gibson MD Work Phone: Start: 08-13-2024 Glucose measurement, blood Christos Gibson MD Work Phone: Start: 08-13-2024 Glucose measurement, blood Felicity Castellano MD Work Phone: Start: 08-13-2024 Assay of magnesium Abdoule scott Hwang Nadine GREENHOUSE MANAGER-DOUBLER OPERATOR Work Phone: Start: 08-13-2024 Glucose measurement, blood Felicity Castellano MD Work Phone: Start: 08-12-2024 Glucose measurement, blood Felicity Castellano MD Work Phone: Start: 08-12-2024 Glucose measurement, blood Felicity Castellano MD Work Phone: Start: 08-12-2024 Glucose measurement, blood Felicity Castellano MD Work Phone: Start: 08-12-2024 Assay of magnesium Abdoule scott Hwang Nadine GREENHOUSE MANAGER-DOUBLER OPERATOR Work Phone: Start: 08-12-2024 Glucose measurement, blood Felicity Castellano MD Work Phone: Start: 08-11-2024 Glucose measurement, blood Felicity Castellano MD Work Phone: Start: 08-11-2024 Glucose measurement, blood Felicity Castellano MD Work Phone: Start: 08-11-2024 Glucose measurement, blood Felicity Castellano MD Work Phone: Start: 08-11-2024 Assay of magnesium Abram Hwang Nadine GREENHOUSE MANAGER-DOUBLER OPERATOR Work Phone: Start: 08-10-2024 Glucose measurement, blood Felicity Castellano MD Work Phone: Start: 08-10-2024 Glucose measurement, blood Felicity Castellano MD Work Phone: Start: 08-10-2024 End: 08-10-2024 Culture bacterial blood aerobic w/id isolates Radha Gr GREENHOUSE MANAGER-DOUBLER OPERATOR Work Phone: Start: 08-10-2024 Glucose measurement, blood Felicity Castellano MD Work Phone: Start: 08-10-2024 End: 08-10-2024 Glucose measurement, blood Felicity Castellano MD Work Phone: Start: 08-10-2024 Glucose measurement, blood Felicity Castellano MD Work Phone: Start: 08-10-2024 Assay of magnesium Abram Mccoy GREENHOUSE MANAGER-DOUBLER OPERATOR Work Phone: Start: 08-10-2024 Glucose measurement, [...] Start: 08-09-2024 Assay of magnesium Abram Schulteameh GREENHOUSE MANAGER-DOUBLER OPERATOR Work Phone: Start: 08-09-2024 Glucose measurement, blood Felicity Castellano MD Work Phone: Start: 08-08-2024 Glucose measurement, blood Felicity Castellano MD Work Phone: Start: 08-08-2024 Culture bct isol&prs mptv id isolate ea urine Bella Cardenas GREENHOUSE MANAGER-DOUBLER OPERATOR Work Phone: Start: 08-08-2024 EXTRA MICRO Bella matthews GREENHOUSE MANAGER-DOUBLER OPERATOR Work Phone: Start: 08-08-2024 URINALYSIS REFLEX TO CULTURE Bella Cardenas GREENHOUSE MANAGER-DOUBLER OPERATOR Work Phone: Start: 08-08-2024 Ct head/brain w/o co ntrast material Bella Cardenas GREENHOUSE MANAGER-DOUBLER OPERATOR Work Phone: Start: 08-08-2024 Glucose measurement, blood Felicity Castellano MD Work Phone: Start: 08-08-2024 End: 08-08-2024 Glucose measurement, blood Felicity Castellano MD Work Phone: Start: 08-08-2024 Assay of magnesium Abram Schulteameh GREENHOUSE MANAGER-DOUBLER OPERATOR Work Phone: Start: 08-07-2024 Glucose measurement, blood Felicity Castellano MD Work Phone: Start: 08-07-2024 Glucose measurement, blood Felicity Castellano MD Work Phone: Start: 08-07-2024 Glucose measurement, blood Felicity Castellano MD Work Phone: Start: 08-07-2024 Glucose measurement, blood Felicity Castellano MD Work Phone: Start: 08-06-2024 Glucose measurement, blood Felicity Castellano MD Work Phone: Start: 08-06-2024 Assay of magnesium Abram Schulteameh GREENHOUSE MANAGER-DOUBLER OPERATOR Work Phone: Start: 08-06-2024 Glucose measurement, blood Felicity Castellano MD Work Phone: Start: 08-06-2024 Glucose measurement, blood Felicity Castellano MD Work Phone: Start: 08-06-2024 Radiologic exam swal low function contrast study Shanna Russ GREENHOUSE MANAGER-DOUBLER OPERATOR Work Phone: Start: 08-06-2024 SPEECH MODIFIED KEAGAN UM SWALLOW Shanna Russ GREENHOUSE MANAGER-DOUBLER OPERATOR Work Phone: Start: 08-06-2024 Glucose measurement, blood Felicity Castellano MD Work Phone: Start: 08-05-2024 Glucose measurement, blood Felicity Castellano MD Work Phone: Start: 08-05-2024 Assay of magnesium Abdoule scott Mccoy GREENHOUSE MANAGER-DOUBLER OPERATOR Work Phone: Start: 08-05-2024 Glucose measurement, blood Felicity Castellano MD Work Phone: Start: 08-05-2024 Glucose measurement, blood Felicity Castellano MD Work Phone: Start: 08-05-2024 Echo tthrc r-t 2d w/wom-mode compl spec&colr d Taran Robb Priestzoie GREENHOUSE MANAGER-DOUBLER OPERATOR Work Phone: Start: 08-05-2024 Glucose measurement, blood Felicity Castellano MD Work Phone: Start: 08-05-2024 Assay of magnesium Abram Mccoy GREENHOUSE MANAGER-DOUBLER OPERATOR Work Phone: Start: 08-05-2024 Glucose measurement, [...] Start: 08-04-2024 Assay of magnesium Abdoule scott Mccoy GREENHOUSE MANAGER-DOUBLER OPERATOR Work Phone: Start: 08-04-2024 Glucose measurement, blood Richard Mejia MD Work Phone: Start: 08-03-2024 Ct head/brain w/o co ntrast material Shaila L Ciupak PA-C Start: 08-03-2024 Sodium serum plasma or whole blood Shanna Denise MD Work Phone: Start: 08-03-2024 Glucose measurement, blood Richard Mejia MD Work Phone: Start: 08-03-2024 Radiologic exam abdo men 1 view Balbir Cardenash GREENHOUSE MANAGER-DOUBLER OPERATOR Work Phone: Start: 08-03-2024 Glucose measurement, blood Richard Mejia MD Work Phone: Start: 08-03-2024 Sodium serum plasma or whole blood Shanna Denise MD Work Phone: Start: 08-03-2024 Glucose measurement, blood Richadr Mejia MD Work Phone: Start: 08-03-2024 Ct head/brain w/o co ntrast material Shaila L Ciupak PA-C Start: 08-03-2024 Glucose measurement, blood Richard Mejia MD Work Phone: Start: 08-03-2024 End: 08-03-2024 Mri brain brain stem w/o contrast material Taran Traore GREENHOUSE MANAGER-DOUBLER OPERATOR Work Phone: Start: 08-03-2024 ABORH TYPE RECONFIRMATION Cindy CORDOVA Work Phone: Start: 08-03-2024 Assay of magnesium Abram Mccoy GREENHOUSE MANAGER-DOUBLER OPERATOR Work Phone: Start: 08-02-2024 Glucose measurement, [...] Work Phone: Start: 08-02-2024 Antibody screen CHRISTOS GIBSON Comment on above: Performed By: #### X M #### [facility] ([facility]) [address] [place] [address] Start: 08-02-2024 EXTRA MICRO Taran Traore GREENHOUSE MANAGER-DOUBLER OPERATOR Work Phone: Start: 08-02-2024 Hemoglobin glycosylated a1c Balbir Mccoy GREENHOUSE MANAGER-DOUBLER OPERATOR Work Phone: Start: 08-02-2024 Hepatic function panel Balbir Mccoy GREENHOUSE MANAGER-DOUBLER OPERATOR Work Phone: Start: 08-02-2024 Iadna s aureus ampli fied probe tq Balbir Cardenash GREENHOUSE MANAGER-DOUBLER OPERATOR Work Phone: Start: 08-02-2024 URINALYSIS REFLEX TO CULTURE Taran Traore GREENHOUSE MANAGER-DOUBLER OPERATOR Work Phone: Start: 08-02-2024 Urnls dip stick/tabl et reagent auto microscopy Taran Traore GREENHOUSE MANAGER-DOUBLER OPERATOR Work Phone: Start: 08-02-2024 SARS-CoV-2, Influenz [...] Breast biopsy and re lated procedures SILVINO PEARL DO section SILVINO MARTINEZ DO Comment on above: X2 Colonoscopy SILVINO PEARL DO Extraction of cataract SILVINO PEARL DO Open reduction of fr acture with internal fixation SILVINO PEARL DO Comment on above: LEFT ARM Plan of Treatment Date Care Activity Detail Author Start: 08-15-2025 Complete blood count Hemoglobin/Hematocrit [facility] Start: 08-15-2025 Creatinine measurement Serum Creatinine [facility] Start: 08-02-2025 Thyroid stimulating hormone measurement [facility] Start: 06-26-2025 Annual PCP Team Chronic Disease Visit Annual PCP Team Chronic Disease Visit [facility] Start: 05-31-2025 Annual PCP Team Chronic Disease Visit Annual PCP Team Chronic Disease Visit [facility] Start: 05-31-2025 Covid-19 Vaccine ( season) Covid-19 Vaccine ( season) [facility] Comment on above: Postponed from 01/14/2024 (Declined at t his time) Start: 05-31-2025 Pneumococcal Vaccine: 50+ (2 of 2 - PPSV23) Pneumococcal Vaccine: 50+ (2 of 2 - PPSV23) [facility] Comment on above: Postponed from 12/19/2019 (Declined at t his time) Start: 05-23-2025 Creatinine measurement Serum Creatinine [facility] Start: 05-23-2025 Hepatitis B screening Urine Albumin:Creatinine Ratio [facility] Start: 05-23-2025 Hepatitis B surface antibody level LDL Cholesterol [facility] Start: 03-04-2025 -GILMA - Melissa Start: 02-25-2025 -GILMA - Melissa Start: 02-02-2025 [facility]c [facility] Start: 01-13-2025 Influenza vaccination [facility] Start: 01-03-2025 Glaucoma screening Dilated Retinal Exam [facility] Start: 12-24-2024 End: 12-24-2024 Patient encounter procedure 12/24/2024 9:20 AM EDT Office Visit Family [place] [facility] [address] [place], [place] [id number] Kameron Caruso MD [address] [place] [id number] 6 month follow up Family [place] [facility] Comment on above: 6 month follow up Start: 11-28-2024 End: 02-27-2025 Comprehensive metabolic 2000 panel - Serum or Plasma COMPREHENSIVE METABOLIC PANEL Lab Routine Essential hypertension, benign Chronic kidney disease, stage 3a (HCC) Hyperlipidemia, unspecified hyperlipidemia type Expected: 11/28/2024 (Approximate), Expires: 02/27/2025 [facility] Work Phone: Comment on above: Expected: 11/28/2024 (Approximate), Expi res: 02/27/2025 Start: 11-28-2024 End: 02-27-2025 Hemoglobin A1c in Blood HEMOGLOBIN A1C Lab Routine Expected: 11/28/2024 (Approximate), Expires: 02/27/2025 [facility] Comment on above: Expected: 11/28/2024 (Approximate), Expi res: 02/27/2025 Start: 11-28-2024 End: 02-27-2025 Lipid 1996 panel - Serum or Plasma LIPID PANEL BASIC Lab Routine Essential hypertension, benign Hyperlipidemia, unspecified hyperlipidemia type Expected: 11/28/2024 (Approximate), Expires: 02/27/2025 [facility] Comment on above: Expected: 11/28/2024 (Approximate), Expi res: 02/27/2025 Start: 11-28-2024 End: 02-27-2025 Thyrotropin [Units/volume] in Serum or Plasma THYROID STIMULATING HORMONE Lab Routine Hypothyroidism, unspecified type Expected: 11/28/2024 (Approximate), Expires: 02/27/2025 [facility] Comment on above: Expected: 11/28/2024 (Approximate), Expi res: 02/27/2025 Start: 11-27-2024 Annual PCP Team Chronic Disease Visit Annual PCP Team Chronic Disease Visit [facility] Start: 11-27-2024 Anxiety Screening Anxiety Screening [facility] Start: 11-27-2024 Depression Screening Depression Screening [facility] Start: 11-27-2024 RSV Vaccine (1 - 1-dose 60+ series) RSV Vaccine (1 - 1-dose 60+ series) [facility] Comment on above: Postponed from 2004 (Declined at t his time) Start: 11-27-2024 RSV Vaccine (1 - 1-dose 75+ series) RSV Vaccine (1 - 1-dose 75+ series) [facility] Comment on above: Postponed from 10/26/2019 (Declined at t his time) Start: 11-26-2024 Creatinine measurement Serum Creatinine [facility] Start: 11-26-2024 Hepatitis B surface antibody level LDL Cholesterol [facility] Start: 11-20-2024 Hemoglobin A1c measurement HbA1C [facility] Start: 11-11-2024 Influenza vaccination Influenza Vaccine (#1) [facility] Comment on above: Postponed from 01/14/2024 (Declined at t his time) Start: 10-08-2024 End: 10-08-2024 ambulatory [facility] Start: 10-02-2024 Evaluation of diagnostic study results 12 Lead EKG performed by [facility] Start: 08-02-2024 [facility] Start: 08-02-2024 SARS-CoV-2, Influenza & RSV (PCR) SARS-CoV-2, Influenza & RSV (PCR) [facility] Start: 08-02-2024 End: 08-02-2024 [facility] Start: 08-02-2024 Electrocardiographic procedure [facility] Start: 08-02-2024 Oxygen therapy [facility] Start: 07-24-2024 End: 10-23-2024 Thyrotropin [Units/volume] in Serum or Plasma THYROID STIMULATING HORMONE Lab Routine Hypothyroidism, unspecified type Expected: 07/24/2024, Expires: 10/23/2024 [facility] Work Phone: Comment on above: Expected: 07/24/2024, Expires: Start: 07-24-2024 End: 10-23-2024 Thyroxine (T4) free [Mass/volume] in Serum or Plasma T4 FREE/FREE THYROXINE Lab Routine Hypothyroidism, unspecified type Expected: 07/24/2024, Expires: 10/23/2024 [facility] Comment on above: Expected: 07/24/2024, Expires: Start: 06-25-2024 End: 06-25-2024 Patient encounter procedure 06/25/2024 9:40 AM EST Office Visit [facility] [place] [address] [place], [place] [phone] Kameron Caruso MD [address] [place], [place] [phone] 1 mo f/u, new dx afib. [facility] [place] Comment on above: 1 mo f/u, new dx afib. Start: 06-11-2024 End: 06-11-2024 Patient encounter procedure 06/11/2024 8:50 AM EST Office Visit Cardiology [address] [place], [place] [phone] Atrial fibrillation, unspecified type (HCC) [I48.91] Cardiology Comment on above: Atrial fibrillation, unspecified type (H CC) [I48.91] Start: 05-30-2024 Annual PCP Team Chronic Disease Visit Annual PCP Team Chronic Disease Visit [facility] Start: 05-30-2024 End: 08-29-2024 Comprehensive metabolic 2000 panel - Serum or Plasma COMPREHENSIVE METABOLIC PANEL Lab Routine Type 2 diabetes mellitus with diabetic chronic kidney disease, unspecified CKD stage, unspecified whether superintendent terminal insulin use (HCC) Essential hypertension, benign Chronic kidney disease, stage 3a (HCC) Hyperlipidemia, unspecified hyperlipidemia type Expected: 05/30/2024 (Approximate), Expires: 08/29/2024 [facility] Work Phone: Comment on above: Expected: 05/30/2024 (Approximate), Expi res: 08/29/2024 Start: 05-30-2024 Covid-19 Vaccine (2 - 2023-24 season) Covid-19 Vaccine () [facility] Comment on above: Postponed from 01/13/2023 (Declined at t his time) Start: 05-30-2024 End: 08-29-2024 Hemoglobin A1c in Blood HEMOGLOBIN A1C Lab Routine Type 2 diabetes mellitus with diabetic chronic kidney disease, unspecified CKD stage, unspecified whether half-way insulin use (HCC) Expected: 05/30/2024 (Approximate), Expires: 08/29/2024 [facility] Comment on above: Expected: 05/30/2024 (Approximate), Expi res: 08/29/2024 Start: 05-30-2024 Hepatitis C screening Hepatitis C Screening [facility] Comment on above: Postponed from 1962 (Declined at t his time) Start: 05-30-2024 End: 08-29-2024 Lipid 1996 panel - Serum or Plasma LIPID PANEL BASIC Lab Routine Type 2 diabetes mellitus with diabetic chronic kidney disease, unspecified CKD stage, unspecified whether superintendent terminal insulin use (HCC) Essential hypertension, benign Hyperlipidemia, unspecified hyperlipidemia type Expected: 05/30/2024 (Approximate), Expires: 08/29/2024 [facility] Comment on above: Expected: 05/30/2024 (Approximate), Expi res: 08/29/2024 Start: 05-30-2024 End: 08-29-2024 Microalbumin/Creatinine [Mass Ratio] in Urine ALBUMIN/CREATININE RATIO, URINE Lab Routine Type 2 diabetes mellitus with diabetic chronic kidney disease, unspecified CKD stage, unspecified whether half-way insulin use (HCC) Expected: 05/30/2024 (Approximate), Expires: 08/29/2024 [facility] Comment on above: Expected: 05/30/2024 (Approximate), Expi res: 08/29/2024 Start: 05-30-2024 Pneumococcal Vaccine: 65+ (2 of 2 - PPSV23 or PCV20) Pneumococcal Vaccine: 65+ (2 of 2 - PPSV23 or PCV20) [facility] Comment on above: Postponed from 12/19/2019 (Declined at t his time) Start: 05-30-2024 End: 08-29-2024 Thyrotropin [Units/volume] in Serum or Plasma THYROID STIMULATING HORMONE Lab Routine Hypothyroidism, unspecified type Expected: 05/30/2024 (Approximate), Expires: 08/29/2024 [facility] Comment on above: Expected: 05/30/2024 (Approximate), Expi res: 08/29/2024 Start: 05-30-2024 End: 05-30-2024 Patient encounter procedure 05/30/2024 9:40 AM EST Office Visit Family [place] [facility] [address] [place] [address] Kameron Caruso MD [address] [place] [address] 6 mo f/u Family [place] [facility] Comment on above: 6 mo f/u Start: 05-29-2024 Hemoglobin A1c measurement HbA1C [facility] Start: 05-16-2024 Creatinine measurement Serum Creatinine [facility] Start: 05-16-2024 Hepatitis B screening Urine Albumin:Creatinine Ratio [facility] Start: 05-16-2024 Hepatitis B surface antibody level LDL Cholesterol [facility] Start: 05-15-2024 Advance Directive Discussion Advance Directive Discussion [facility] Start: 01-14-2024 Influenza vaccination [facility] Start: 01-14-2024 [facility] Start: 01-04-2024 Glaucoma screening Dilated Retinal Exam [facility] Start: 01-04-2024 Hepatitis C antibody, confirmatory test Dilated Retinal Exam [facility] Start: 11-28-2023 End: 11-28-2023 Patient encounter procedure 11/28/2023 9:40 AM EDT Office Visit Family [place] [facility] [address] [place] [address] Kameron Caruso MD [address] [place] [address] 6 mo follow up Family [place] [facility] Comment on above: 6 mo follow up Start: 11-26-2023 ANNUAL PCP TEAM CHRONIC DISEASE VISIT ANNUAL PCP TEAM CHRONIC DISEASE VISIT [facility] Start: 11-26-2023 BP CONTROLLED (<130/80) BP CONTROLLED (<130/80) [facility] Start: 11-23-2023 Complete blood count Hemoglobin/Hematocrit [facility] Start: 11-23-2023 HEMOGLOBIN/HEMATOCRIT HEMOGLOBIN/HEMATOCRIT [facility] Start: 11-23-2023 Hepatitis B surface antibody level LDL CHOLESTEROL [facility] Start: 11-23-2023 SERUM CREATININE SERUM CREATININE [facility] Start: 11-14-2023 Hemoglobin A1c measurement HbA1C [facility] Start: 05-27-2023 ANNUAL PCP TEAM CHRONIC DISEASE VISIT ANNUAL PCP TEAM CHRONIC DISEASE VISIT [facility] Start: 05-27-2023 COVID-19 VACCINE (2 - Booster for Alyssa series) COVID-19 VACCINE (2 - Booster for Alyssa series) [facility] Comment on above: Postponed from 09/17/2020 (Declined at t his time) Start: 05-27-2023 HEPATITIS C SCREENING HEPATITIS C SCREENING [facility] Comment on above: Postponed from 1962 (Declined at t his time) Start: 05-25-2023 Hemoglobin A1c/Hemoglobin.total in Blood HBA1C [facility] Start: 05-19-2023 HEMOGLOBIN/HEMATOCRIT HEMOGLOBIN/HEMATOCRIT [facility] Start: 05-19-2023 Hepatitis B surface antibody level LDL CHOLESTEROL [facility] Start: 05-19-2023 SERUM CREATININE SERUM CREATININE [facility] Start: 05-15-2023 Advance Directive Discussion Advance Directive Discussion [facility] Start: 05-15-2023 Behavioral Health Screening Behavioral Health Screening [facility] Start: 03-02-2023 ANNUAL PCP TEAM CHRONIC DISEASE VISIT ANNUAL PCP TEAM CHRONIC DISEASE VISIT [facility] Start: 01-13-2023 Covid-19 Vaccine ( season) Covid-19 Vaccine () [facility] Start: 01-13-2023 Influenza vaccination [facility] Start: 12-27-2022 Hepatitis C antibody, confirmatory test DILATED RETINAL EXAM [facility] Start: 11-24-2022 End: 01-24-2023 CBC panel - Blood by Automated count CBC Lab Routine Essential hypertension, benign Hypothyroidism, unspecified type Expected: 11/24/2022 (Approximate), Expires: 01/24/2023 [facility] Work Phone: Comment on above: Expected: 11/24/2022 (Approximate), Expi res: 01/24/2023 Start: 11-24-2022 End: 01-24-2023 Comprehensive metabolic 2000 panel - Serum or Plasma COMP METABOLIC PANEL Lab Routine Essential hypertension, benign Type 2 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, without long-term current use of insulin (HCC) Hyperlipidemia, unspecified hyperlipidemia type Expected: 11/24/2022 (Approximate), Expires: 01/24/2023 [facility] Work Phone: Comment on above: Expected: 11/24/2022 (Approximate), Expi res: 01/24/2023 Start: 11-24-2022 End: 01-24-2023 Hemoglobin A1c in Blood HGB A1C Lab Routine Type 2 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, without long-term current use of insulin (HCC) Expected: 11/24/2022 (Approximate), Expires: 01/24/2023 [facility] Work Phone: Comment on above: Expected: 11/24/2022 (Approximate), Expi res: 01/24/2023 Start: 11-24-2022 End: 01-24-2023 Lipid 1996 panel - Serum or Plasma LIPID PANEL BASIC Lab Routine Essential hypertension, benign Type 2 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, without long-term current use of insulin (HCC) Hyperlipidemia, unspecified hyperlipidemia type Expected: 11/24/2022 (Approximate), Expires: 01/24/2023 [facility] Work Phone: Comment on above: Expected: 11/24/2022 (Approximate), Expi res: 01/24/2023 Start: 11-24-2022 End: 01-24-2023 Thyrotropin [Units/volume] in Serum or Plasma TSH BLD Lab Routine Hypothyroidism, unspecified type Expected: 11/24/2022 (Approximate), Expires: 01/24/2023 [facility] Work Phone: Comment on above: Expected: 11/24/2022 (Approximate), Expi res: 01/24/2023 Start: 11-23-2022 3 comp foot exam completed DIABETIC FOOT EXAM [facility] Start: 11-23-2022 ANNUAL PCP TEAM CHRONIC DISEASE VISIT ANNUAL PCP TEAM CHRONIC DISEASE VISIT [facility] Start: 11-23-2022 Diabetic foot examination Diabetic Foot Exam [facility] Start: 11-20-2022 Hepatitis B screening URINE ALBUMIN:CREATININE RATIO [facility] Start: 11-20-2022 Hepatitis B surface antibody level LDL CHOLESTEROL [facility] Start: 11-20-2022 SERUM CREATININE SERUM CREATININE [facility] Start: 11-16-2022 Hemoglobin A1c/Hemoglobin.total in Blood HBA1C [facility] Start: 11-11-2022 Influenza vaccination INFLUENZA (#1) [facility] Comment on above: Postponed from 01/13/2022 (Declined at t his time) Start: 05-26-2022 End: 07-26-2022 CBC panel - Blood by Automated count CBC Lab Routine Essential hypertension, benign Stage 3b chronic kidney disease (HCC) Expected: 05/26/2022 (Approximate), Expires: 07/26/2022 [facility] Work Phone: Comment on above: Expected: 05/26/2022 (Approximate), Expi res: 07/26/2022 Start: 05-26-2022 End: 07-26-2022 Comprehensive metabolic 2000 panel - Serum or Plasma COMP METABOLIC PANEL Lab Routine Type 2 diabetes mellitus with diabetic chronic kidney disease, unspecified CKD stage, unspecified whether superintendent terminal insulin use (HCC) Essential hypertension, benign Hyperlipidemia, unspecified hyperlipidemia type Stage 3b chronic kidney disease (HCC) Expected: 05/26/2022 (Approximate), Expires: 07/26/2022 [facility] Work Phone: Comment on above: Expected: 05/26/2022 (Approximate), Expi res: 07/26/2022 Start: 05-26-2022 End: 07-26-2022 Hemoglobin A1c in Blood HGB A1C Lab Routine Type 2 diabetes mellitus with diabetic chronic kidney disease, unspecified CKD stage, unspecified whether superintendent terminal insulin use (HCC) Expected: 05/26/2022 (Approximate), Expires: 07/26/2022 [facility] Work Phone: Comment on above: Expected: 05/26/2022 (Approximate), Expi res: 07/26/2022 Start: 05-26-2022 End: 07-26-2022 Lipid 1996 panel - Serum or Plasma LIPID PANEL BASIC Lab Routine Essential hypertension, benign Hyperlipidemia, unspecified hyperlipidemia type Expected: 05/26/2022 (Approximate), Expires: 07/26/2022 [facility] Work Phone: Comment on above: Expected: 05/26/2022 (Approximate), Expi res: 07/26/2022 Start: 05-26-2022 End: 07-26-2022 Thyrotropin [Units/volume] in Serum or Plasma TSH BLD Lab Routine Hypothyroidism, unspecified type Expected: 05/26/2022 (Approximate), Expires: 07/26/2022 [facility] Work Phone: Comment on above: Expected: 05/26/2022 (Approximate), Expi res: 07/26/2022 Start: 05-23-2022 Hemoglobin A1c/Hemoglobin.total in Blood HBA1C [facility] Start: 05-18-2022 ANNUAL PCP TEAM CHRONIC DISEASE VISIT ANNUAL PCP TEAM CHRONIC DISEASE VISIT [facility] Start: 05-17-2022 Hepatitis B surface antibody level LDL CHOLESTEROL [facility] Start: 05-17-2022 SERUM CREATININE SERUM CREATININE [facility] Start: 05-15-2022 ADVANCE DIRECTIVE DISCUSSION ADVANCE DIRECTIVE DISCUSSION [facility] Start: 01-13-2022 Influenza vaccination [facility] Start: 01-11-2022 Hepatitis C antibody, confirmatory test DILATED RETINAL EXAM [facility] Start: 11-14-2021 Hemoglobin A1c/Hemoglobin.total in Blood HBA1C [facility] Start: 11-06-2021 Screening for malignant neoplasm of breast [facility] Start: 11-05-2021 3 comp foot exam completed [facility] Start: 11-05-2021 Adult depression screening assessment DEPRESSION SCREENING [facility] Start: 11-04-2021 Hepatitis B screening URINE ALBUMIN:CREATININE RATIO [facility] Start: 10-15-2021 Hepa vaccine adult dose for intramuscular use HEPATITIS A VACCINE ADULT IM Immunization/Injection Routine Need for vaccination Expected: 10/15/2021 [facility] Work Phone: Comment on above: Expected: 10/15/2021 Start: 10-15-2021 Tdap vaccine 7 yrs/> im TDAP VACCINE AGE 7+ IM Immunization/Injection Routine Need for vaccination Expected: 10/15/2021 [facility] Work Phone: Comment on above: Expected: 10/15/2021 Start: 05-15-2021 ADVANCE DIRECTIVE DISCUSSION ADVANCE DIRECTIVE DISCUSSION [facility] Start: 05-15-2021 DEPRESSION ASSESSMENT DEPRESSION ASSESSMENT [facility] Start: 10-23-2020 PNEUMOCOCCAL: 65+ (2 - PPSV23 if available, else PCV20) PNEUMOCOCCAL: 65+ (2 - PPSV23 if available, else PCV20) [facility] Start: 10-23-2020 PNEUMOCOCCAL: 65+ (2 - PPSV23 or PCV20) PNEUMOCOCCAL: 65+ (2 - PPSV23 or PCV20) [facility] Start: 10-16-2020 HEMOGLOBIN/HEMATOCRIT HEMOGLOBIN/HEMATOCRIT [facility] Start: 09-17-2020 COVID-19 VACCINE (2 - Booster for Alyssa series) COVID-19 VACCINE (2 - Booster for Alyssa series) [facility] Start: 12-19-2019 Pneumococcal vaccination [facility] Start: 12-19-2019 Pneumococcal Vaccine: 65+ (2 - PPSV23 or PCV20) Pneumococcal Vaccine: 65+ (2 - PPSV23 or PCV20) [facility] Start: 12-19-2019 PNEUMOCOCCAL: 65+ (2 - PPSV23 or PCV20) PNEUMOCOCCAL: 65+ (2 - PPSV23 or PCV20) [facility] Start: 11-08-2019 Screening for malignant neoplasm of colon [facility] Start: 10-26-2019 [facility] Start: 01-13-2019 Influenza vaccination Flu vaccine (#1) [place] Start: 12-23-2018 Annual Wellness Visit (AWV) Annual Wellness Visit (AWV) [place] Start: 2009 DEXA (modify frequency per FRAX score) DEXA (modify frequency per FRAX score) [place] Start: 2009 Pneumococcal 65+ years Vaccine (1 of 1 - PPSV23) Pneumococcal 65+ years Vaccine (1 of 1 - PPSV23) [place] Start: 2009 Pneumococcal 65+ years Vaccine (1 of 2 - PCV13) Pneumococcal 65+ years Vaccine (1 of 2 - PCV13) [place] Start: 10-26-2007 Annual Wellness Visit (AWV) Annual Wellness Visit (AWV) [place] Start: 06-13-2005 Hepatitis B Vaccine (1 of 3 - Risk 3-dose series) Hepatitis B Vaccine (1 of 3 - Risk 3-dose series) [facility] Start: 2004 RSV Vaccine (1 - 1-dose 60+ series) RSV Vaccine (1 - 1-dose 60+ series) [facility] Start: 10-26-1999 Screening for osteoporosis DEXA (modify frequency per FRAX score) [place] Start: 1994 Breast cancer screen Breast cancer screen [place], [place] Start: 1994 Colon cancer screen colonoscopy Colon cancer screen colonoscopy [place] Start: 1994 Screening for malignant neoplasm of breast Breast cancer screen [place], [place] Start: 1994 Screening for malignant neoplasm of colon Colon cancer screen colonoscopy [place] Start: 1994 Shingles Vaccine (1 of 2) Shingles Vaccine (1 of 2) [place] Start: 1984 Lipid screen Lipid screen [place] Start: 1965 Screening for malignant neoplasm of cervix [facility] Start: 10-26-1963 DTaP/Tdap/Td vaccine (1 - Tdap) DTaP/Tdap/Td vaccine (1 - Tdap) [place] Start: 10-26-1963 Third diphtheria, tetanus and acellular pertussis (DTaP) vaccination [facility] Start: 10-26-1963 [facility]rine microalbumin profile [facility] Start: 1962 BP CONTROLLED (<130/80) BP CONTROLLED (<130/80) [facility] Start: 1962 HEPATITIS C SCREENING HEPATITIS C SCREENING [facility] Start: 1954 Lipid panel Lipid screen [place], [place] Start: 1944 Creatinine measurement Creatinine monitoring [place], [place] Start: 1944 Creatinine monitoring Creatinine monitoring [place], [place] Start: 1944 Hepatitis C screen Hepatitis C screen [place] Start: 1944 Hepatitis C screening [facility] Start: 1944 Potassium monitoring Potassium monitoring [place] Start: 1944 [facility] Start: [facility] Tetanus vaccination [facility] End: 01-09-2019 Blood glucose - POCT Blood glucose - POCT Point of Care Testing Routine One Time for 1 Occurrences starting 01/09/2019 until 01/09/2019 [facility] [place] Comment on above: One Time for 1 Occurrences starting 12/14 until 01/09/2019 ECG COMPLETE [facility] Comment on above: Ordered: 05/31/2024 End: 05-31-2025 Echocardiography ECHO Cardiology Routine Atrial fibrillation, unspecified type (HCC) 1 Occurrences starting 05/31/2024 until 05/31/2025 [facility] Comment on above: 1 Occurrences starting 05/31/2024 until 05/31/2025 Patient referral [facility] Work Phone: End: 01-09-2019 Pulse Oximetry Spot Check Pulse Oximetry Spot Check Respiratory Care Routine One Time for 1 Occurrences starting 01/09/2019 until 01/09/2019 [facility] [place] Comment on above: One Time for 1 Occurrences starting 12/14 until 01/09/2019 End: 08-02-2024 PV FLUOROSCOPY OR [facility] End: 08-02-2024 Standard ECG [facility] Immunizations Immunization Date Immunization Notes Care Provider Fa sonya 07-23-2020 SARS-CoV-2 (COVID-19 ) Ad26 vaccine, recombinant SILVINO PEARL DO Ashley Garber Comment on above: Result Comment: 2024: [id number] 02-27-2020 influenza, high dose seasonal, preservative-free Kameron Caruso MD Work Phone: [facility] 02-27-2020 influenza virus vaccine, unspecified formulation Kameron Caruso MD Work Phone: Ashley Garcia 10-24-2019 pneumococcal conjuga te vaccine, 13 valent Kameron Caruso MD Work Phone: [facility] 10-24-2019 zoster vaccine recombinant Kameron Caruso MD Work Phone: [facility] 07-25-2019 influenza virus vaccine, unspecified formulation SILVINO PEARL DO [facility] 07-25-2019 influenza, seasonal, injectable Kameron Caruso MD Work Phone: [facility] 07-25-2019 zoster vaccine recombinant Kameron Caruso MD Work Phone: [facility] 04-13-2015 influenza virus vaccine, unspecified formulation SILVINO PEARL DO [facility] 05-01-2014 influenza virus vaccine, unspecified formulation SILVINO PEARL DO [facility] 05-01-2014 influenza, high dose seasonal, preservative-free Kameron Caruso MD Work Phone: [facility] 02-22-2012 influenza virus vaccine, unspecified formulation Kameron Caruso MD Work Phone: [facility] Work Phone: 03-19-2007 influenza virus vaccine, unspecified formulation Kameron Caruso MD Work Phone: [facility] Work Phone: Payers Date Payer Category Payer Medicare [id number] 2024 Unknown [id number] 2024 Self-pay 2018 Medicare [employer] [facility] xxxxxxxxxxx 2018-Present [phone] [address] [place] [address] xxxxxxxxxxx [id number] 2018 Unknown [id number] 2013 Medicare [employer] [place] [id number] 2013-Present [phone] [address] [place] [address] [id number] .[id number] 2013 Medicare [id number] 1.13.159.2 .[id number] 2013 Medicare (Managed Care) 1.2. [id number] .[id number] 2013 Medicare [id number] 1944 Unknown [id number] 2.16.840.1.264799.3.579.2 .627 1944 Unknown [id number] 2.16.840.1.229661.3.579.2 .732 1944 Unknown [id number] 2.16.840.1.447670.3.579.2 .594 1944 Unknown [id number] 2.16.840.1.056846.3.579.2 .594 1944 Unknown [id number] 2.16.840.1.623537.3.579.2 .627 Unknown [id number] 2.16.840.1.850364.3.579.2 .462 Unknown [id number] 2.16.840.1.117033.3.579.2 .462 Unknown [id number] 2.16.840.1.397944.3.579.2 .462 Unknown [id number] 2.16.840.1.009429.3.579.2 .462 Unknown [id number] 2.16.840.1.430144.3.579.2 .462 Unknown [id number] 2.16.840.1.332395.3.579.2 .462 Unknown [id number] 2.16.840.1.485784.3.579.2 .462 Unknown [id number] 2.16.840.1.285035.3.579.2 .462 Unknown [id number] 2.16.840.1.033506.3.579.2 .462 Unknown [id number] 2.16.840.1.242447.3.579.2 .462 Unknown [id number] 2.16.840.1.043007.3.579.2 .462 Unknown [id number] 2.16.840.1.048205.3.579.2 .462 Unknown [id number] 2.16.840.1.827948.3.579.2 .462 Unknown [id number] 2.16.840.1.101669.3.579.2 .462 Unknown [id number] 2.16.840.1.660343.3.579.2 .462 Unknown [id number] 2.16840.1.061650.3.579.2 .462 Unknown [id number] 2.16840.1.468222.3.579.2 .462 Unknown [id number] 2.16840.1.931449.3.579.2 .462 Unknown [id number] 2.16.840.1.331871.3.579.2 .462 Unknown [id number] 2.16.840.1.752157.3.579.2 .462 Unknown [id number] 2.16840.1.522396.3.579.2 .462 Unknown [id number] 2.16840.1.319515.3.579.2 .462 Unknown [id number] 2.16840.1.402390.3.579.2 .462 Unknown [id number] 2.16.840.1.212198.3.579.2 .462 Unknown [id number] 2.16.840.1.503701.3.579.2 .462 Unknown [id number] 2.16.840.1.815342.3.579.2 .462 Unknown [id number] 2.16.840.1.447436.3.579.2 .462 Unknown [id number] 2.16.840.1.508210.3.579.2 .462 Unknown [id number] 2.16.840.1.077607.3.579.2 .462 Unknown [id number] 2.16.840.1.691177.3.579.2 .462 Unknown [id number] 2.16.840.1.207551.3.579.2 .462 Unknown [id number] 2.16.840.1.265078.3.579.2 .462 Unknown [id number] 2.16.840.1.292162.3.579.2 .462 Unknown [id number] 2.16.840.1.257658.3.579.2 .462 Unknown [id number] 2.16.840.1.856984.3.579.2 .462 Unknown [id number] 2.16.840.1.637766.3.579.2 .462 Unknown [id number] 2.16.840.1.378291.3.579.2 .462 Unknown [id number] 2.16.840.1.922462.3.579.2 .462 Unknown [id number] 2.16.840.1.614427.3.579.2 .462 Unknown [id number] 2.16.840.1.332435.3.579.2 .462 Unknown [id number] 2.16.840.1.551659.3.579.2 .462 Unknown [id number] 2.16840.1.054757.3.579.2 .462 Social History Date Type Detail Facility Start: 01-09-2019 End: 08-02-2024 Tobacco smoking status ILIS Never smoker [facility] Start: 01-09-2019 End: 11-25-2022 Alcohol intake Never [facility] Work Phone: Start: 12-24-2018 History SDOH Alcohol Frequency 1 EMILI Pacheco Start: 1945 Sex Assigned At Not on file M EMILI Guerrero Start: 10-16-2019 Alcohol intake Lifetime non-d hortencia (finding) [facility] EMILI JONES Exposure to SARS-CoV -2 (event) [facility] to assess [facility] Start: 05-18-2021 End: 06-26-2024 Alcohol intake Current non-drinker of alcohol (finding) [facility] Start: 11-13-2021 End: 03-02-2022 Exposure to SARS-CoV-2 (event) Not sure [facility] Start: 02-02-2011 End: 03-02-2022 Tobacco use and exposure Smokeless tobacco non-user [facility] Start: 11-25-2022 End: 11-28-2023 History of Social function [facility] Work Phone: Adult Depression Screening Assessment 0 [facility] Work Phone: Start: 06-22-2005 End: 08-02-2024 Sex Female (finding) [facility] Start: 1945 Sex Assigned At Female [facility] Sexual Orientation Ashley Connolly [facility] Medical Equipment Procedure Code Equipment Code Equipment Original Text Equipment Identifier Dates [id number], [id number], [id number] Start: 11-30-2020 End: 04-08-2023 Comment on above: [...] 09-09-2024 Functional Status Room check performed Gillian medinaanny Radha 09-09-2024 Functional Status Ashley Aria simmonsflgregory 09-09-2024 Functional Status Skin Care Prev entative Intervention(s) heel(s)s elevated [facility] 09-08-2024 Functional Status [facility] 09-08-2024 Functional Status [facility] 09-06-2024 Functional Status 11pm-7am [facility] 09-06-2024 Functional Status Antiembolism S tocking On/Re-applied bilateral knee high [facility] 09-05-2024 Functional Status Oral Care Maximum wilfred tance [facility] 09-05-2024 Functional Status [facility] 09-05-2024 Functional Status Done [facility] 09-04-2024 Functional Status [facility] 09-04-[address] [facility] 09-03-2024 Functional Status NPO Status Maintained A kai Garber 09-03-2024 Functional Status None Ashley [facility] 09-03-[address] [facility] 08-29-[address] [facility] 08-29-[address] [facility] 08-27-2024 Functional Status Orthotics, Dev ice Worn Per Schedule Yes [facility] 08-27-[address] [facility] 08-26-[address] [facility] 08-23-[address] [facility] 08-23-2024 Functional Status Breakfast Percent 25 [facility] 08-20-[address] [facility] 08-19-[address] [facility] 08-16-2024 Functional Status Single level h ome, basement laundry [facility] 08-16-2024 Functional Status Outside Stairs Rail Rail on left going up [facility] 08-15-2024 Functional Status Sensory Defici ts Speech deficit [facility] 10-14-2014 Are you deaf, or do you have serious difficulty hearing No [facility] 10-14-2014 Are you blind, or do you have serious difficulty seeing, even when wearing glasses No [facility] 10-14-2014 Do you have serious difficulty walking or climbing stairs No [facility] 10-14-2014 Do you have difficul ty dressing or bathing No [facility] 10-14-2014 Because of a physica l, mental, or emotional condition, do you have difficulty doing errands alone such as visiting a physician's office or shopping No [facility] Mental Status Date Assessment Result Facility 09-09-2024 Mental Status Does not interact [facility] 09-08-2024 Mental Status Ashleyanny Tariq gregory 09-08-2024 Mental Status Ashley Tariq gregory 08-02-2024 Cognitive function Awake;Alert;[facility] Work Phone: 10-14-2014 Because of a physica l, mental, or emotional condition, do you have serious difficulty concentrating, remembering, or making decisions No [facility] Clinical Notes 11-03-2020 to 10-02-2024 Note Date & Type Note Facility 10-02-2024 Evaluation note Diagnosis Onset Date Resolution Acute ischemic right MCA stroke acute October 02, 2024 9:29am Essential hypertension acute Ma 2024 9:29am Hyperlipidemia acute October 02, 2024 9:29am Paroxysmal atrial fibrillation with RVR acute October 02, 2024 9:29am [facility] Work Phone: 1(393) 928-298204-28-2025 Note Discharge Instructions Thank you for allowing [...] KAMERON CARUSO MD When:Within 3-7 days Where:[address] [place] [address]- Additional Information: Please schedule follow up PCP appointment for after discharge from SNF, Bring discharge instructions with you Follow Up with RIMMA POWERS MD When:10/08/2024 04:00 PM EDT Where:[facility] ([address], [place]) Additional Information: Neurosurgeon The Following Activity and [...] , standard right Seat cushion, 99 month(s), [id number], 09/02/24 8:22:00 EDT Transfer of Care Wound [...] depending on your insurance coverage. Check with your[employer] company about what is covered. Keeping follow-up [...] 08/04/2017 Document Revised: 05/04/2018 Document Reviewed: 08/04/2017 [employer] Patient Education 2020 [employer] Additional Information VACCINATE! IT SAVES LIVES! Members of the community who have not yet received the COVID-19 vaccine and would like to receive it can visit one of [facility] vaccine clinics. There are many vaccine clinic locations within the [facility]. For locations and available times, please visit [email or web address] It is important to note that some COVID mobile vaccine clinics are held outdoors and may be canceled in rainy or stormy conditions. To learn more about pediatric vaccinations (ages 5-11), we invite you to visit the [facility] webpage. [email or web address]/[email or web address] [email or web address] learn more about the COVID-19 vaccine, we invite you to visit the CDC website for a list of frequently asked questions.https://www.cdc.gov/coronavirus/2019-ncov/vaccines/faq.html [employer] Patient Portal Access Instructions: Stay connected with your healthcare team and access your personal medical information anytime with the [employer] Patient Portal. Please follow the directions below to create your [employer] account: 1.Access the email account you provided upon registration to the hospital/physician office.2.Look for an invitation email from [facility].3.Open the email and access the invitation link: AcceptInvitation to [employer].4.Fill in the required richards to create your account. To access your account, visit [email or web address]. Click the blue button labeled "Access Patient [...] who you will allowto register on the [facility] Patient Portal for access to your information. You can also access the [facility] Patient Portal on the [facility] dahlia. Simply click on "Patient Portal" and then log into your account. If you would like to receive a full copy of your medical records, please contact the [facility] Medical Records Department by calling [phone], Monday through Monday between 8 a.m. and [...] Call your local pharmacy or go to [email or web address] to find one close to you.3.Make use of household items: Use cat litter or old coffee grounds to dispose medications if other options arenot available. Mix your drugs with these household products, seal them in an airtight container andthrow it into the garbage. Call [facility]: [phone] to be sure your drugs can be [...] aware that I should contact my doctor. 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: Date/Time: Relationship to Patient: Witness Name/Signature: Date/Time: Ashley [id number] Note Discharge Instructions Thank you for allowing [...] KAMERON CARUSO MD When:Within 3-7 days Where:[address] [place] [address]- Additional Information: Please schedule follow up PCP appointment for after discharge from SNF, Bring discharge instructions with you Follow Up with RIMMA POWERS MD When:10/08/2024 04:00 PM EDT Where:[facility] ([address], [place]) Additional Information: Neurosurgeon The Following Activity and [...] standard right Seat cushion, 99 month(s), Ashley [id number], 09/02/24 8:22:00 EDT Transfer of Care Wound [...] depending on your insurance coverage. Check with [employer] company about what is covered. Keeping follow-up [...] 08/04/2017 Document Revised: 05/04/2018 Document Reviewed: 08/04/2017 [employer] Patient Education 2020 [employer]. Additional Information VACCINATE! IT SAVES LIVES! Members of the community who have not yet received the COVID-19 vaccine and would like to receive it can visit one of [facility] vaccine clinics. There are many vaccine clinic locations within the [facility]. For locations and available times, please visit [email or web address] It is important to note that some COVID mobile vaccine clinics are held outdoors and may be canceled in rainy or stormy conditions. To learn more about pediatric vaccinations (ages 5-11), we invite you to visit the [facility] webpage. [email or web address]/[email or web address] [email or web address].htmlTo learn more about the COVID-19 vaccine, we invite you to visit the CDC website for a list of frequently asked questions.https://www.cdc.gov/coronavirus/2019-ncov/vaccines/faq.html [facility] Patient Portal Access Instructions: Stay connected with your healthcare team and access your personal medical information anytime with the [facility] Patient Portal. Please follow the directions below to create your [facility] account: 1.Access the email account you provided upon registration to the hospital/physician office.2.Look for an invitation email from [facility].3.Open the email and access the invitation link: AcceptInvitation to [facility].4.Fill in the required richards to create your account. To access your account, visit [email or web address]. Click the blue button labeled "Access Patient Portal" and then log in with the username and password that you created in the steps above. You will be able to view your test results, lab results, a summary of your visits, upcoming appointments and more. There is also a convenient messaging option where you can send secure messages to your p Angiolog[employer]vider. In addition, you will have the ability to download any documents or summaries to your computer and/or send the information securely to a physician. Remember that your healthcare information is confidential, so carefully consider who you will allowto register on the [facility] Patient Portal for access to your information. You can also access the [facility] Patient Portal on the [facility] dahlia. Simply click on "Patient Portal" and then log into your account. If you would like to receive a full copy of your medical records, please contact the [facility] Medical Records Department by calling [phone], Monday through Monday between 8 a.m. and [...] Call your local pharmacy or go to http://bit.ly/8Q4Tu8n to find one close to you.3.Make use of household items: Use cat litter or old coffee grounds to dispose medications if other options arenot available. Mix your drugs with these household products, seal them in an airtight container andthrow it into the garbage. Call [facility]: [phone] to be sure your drugs can be [...] aware that I should contact my doctor. 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 She was admitted to [facility] from [facility] stay 08/02 - 08/15 who has a history of CAD, DM2, atrial fibrillation and hypertension whopresented to the ER after noting left-sided weakness and slurred speech. 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 [id number] Microgram PEG tube once a day. metoprolol [...] KAMERON CARUSO MD When:Within 3-7 days Where:[address] [place] [address]- Additional Information: Please schedule follow up PCP appointment for after discharge from SNF, Bring discharge instructions with you Follow Up with RIMMA POWERS MD When:10/08/2024 04:00 PM EDT Where:[facility] ([address], [place]) Additional Information: Neurosurgeon Follow Up Appointments No qualifying data available. Follow Up Labs/Studies Discharge Labs No Follow-up Labs Discharge Studies No Follow-up Studies Discharge Diet No qualifying data available. Discharge Activity No qualifying data available. Condition on Discharge Stable Discharge Disposition [facility] facility Information Provided To Patient and family Time Spent Greater than 35 minutes Digitally Signed by SILIVNO PEARL DO on 09/09/2024 01:46 PM [facility] WarnerTrfeqrxn25-87-3038 Nurse Progress note Nursing GG Entered On: 09/09/2024 10:55 EDT Performed On: 09/09/2024 10:55 EDT by Abigail Rodas RN Nursing GG's OT GG Grid Eating : Not Completed Abigail Rodas RN - 09/09/2024 10:55 EDT Digitally Signed by Abigail Rodas RN on 09/09/2024 10:[address] AM [address]27-2025 Nurse Progress note Nursing GG Entered On: 09/08/2024 17:39 EDT Performed On: 09/08/2024 17:39 EDT by Rob Alarcon RN Nursing GG's OT GG Grid Eating : Not Completed Oral Hygiene : Not Completed Toilet Hygiene : Substantial/Maximal Assistance Toilet Transfer : Substantial/Maximal Assistance Rob Alarcon RN - 09/08/2024 17:39 EDT Digitally Signed by Rob Alarcon RN on 09/08/2024 05:[address]27-2025 Nurse Progress note Pt had 250ml residual, 12:30pm bolus was held! Digitally Signed by Rob Alarcon RN on 09/08/2024 12:[address]25-2025 Physical medicine and rehab Progress note [...] and slurred speech. She originally presented to [facility] with CT of the head was obtained showed no acute hemorrhage or large territory stroke. CTA showed mid right M1 occlusion however patient was not a TNK candidate. She was then transferred to a [facility] for further management. CT of head [...] Rate64(SEP 05 16:46)64(SEP 05 16:46)85(SEP 05 09:40) HNC134(SEP 05 16:36)138(SEP 05 16:36)H 158(SEP 05 09:52) [...] accurate and complete Digitally Signed by SILVINO PEARL DO on 09/06/2024 12:34 PM Ashley DyeXvokgsoa98-89-7409 Hospital Discharge instructions Patient Education 09/05/2024 14:15:00 [...] depending on your insurance coverage. Check with your[employer] company about what is covered. Keeping follow-up [...] 08/04/2017 Document Revised: 05/04/2018 Document Reviewed: 08/04/2017 PT [employer] [employer] Patient Education 2020 [employer]. Follow Up Care 08/15/2024 08:51:25 With:RIMMA POWERS MD Address: [facility] ([address], [place]) When:10/08/2024 16:00:00 Comments:Neurosurgeon With:JONNIE BANSAL MD Address: [facility] When: Unknown Comments:GI, No appointment needed until PEG is ready to be removed or concerns arise With:KAMERON CARUSO MD Address: [address] [place] [address]- When:3-7 days Comments:Please schedule follow up PCP [...] less than 3 seconds. Ongoing hemiparesis VITALS AvymmkJycsSMDxymuJWDkS4DSD6CkulNn(kg) 09/05 09:5236.3--766073NR 09/05 09:40----85----RA 09/04 23:3236.6--202710II 09/04 21:2436.5--369337TI 09/04 16:01----72----RA 24 Hr Tmax: 36.6 at [...] tab(s), PEG, Daily, 08/15/24 17:09:00 EDT balsam [place]-castor oil topical (Venelex 788 mg-87 mg/g topical [...] SBP (mmHg) < 110, 1st dose location: [facility], 1, 08/15/24 17:09:00 EDT Active [...] 2 minutes, REPEAT x1., 1st dose location: [facility], 0, 08/15/24 1... glucose (Dextrose [...] None Problems (6) CVA (cerebral vascular accident) (359161036) Diabetes mellitus (528715615) Dysphagia (28992787) Hyperlipidemia (78670513) Hypertension (7359501061) Osteoarthritis (6641947929) ASSESSMENT/PLAN: Right basal ganglia hemorrhage, status post [...] , and in the presence of Catherine Dueñas APRN I, Julie Angel, APRN, personally performed the services described in this documentation, as payalibedDestiny beach RN in my presence and it is both accurate and complete. Digitally Signed by CATHERINE DUEÑAS APRN-GARRETT on 09/05/2024 04:55 PM Ashley GarciaFttqfgae83-44-6038 Physical medicine and rehab Progress note Subjective [...] area Neuro: Left upper extremity hemiparesis VITALS CszkahOlmmYLNslggIKJcN3YAD9KdqpKh(kg) 09/04 23:3236.6--875638WZ 09/04 21:2436.5--062755YV 09/04 16:01----72----RA 09/04 12:10--------97RA 09/04 10:5435.9--322129VH 24 Hr Tmax: 36.6 at 09/04 23:32 [...] None Problems (6) CVA (cerebral vascular accident) (544785334) Diabetes mellitus (458435949) Dysphagia (38990593) Hyperlipidemia (08871983) Hypertension (5576324185) Osteoarthritis (6115094415) ASSESSMENT/PLAN: Acute right basal ganglia hemorrhage with [...] sugars closely. Follow-up with neurosurgery 10/08 [facility] protocol in place with ice chips [...] NANDO HUTTON DO on 09/05/2024 10:12 AM [facility]Fllpzntg44-20-9691 Physical medicine and rehab Progress note Rehab [...] and slurred speech. She originally presented to [facility] with CT of the head was obtained showed no acute hemorrhage or large territory stroke. CTA showed mid right M1 occlusion however patient was not a TNK candidate. She was then transferred to a [facility] for further management. CT of head [...] Rate64(SEP 03 15:52)64(SEP 03 15:52)90(SEP 03 08:28) TDC679(SEP 04 05:38)112(SEP 04 05:38)127(SEP 03 08:00) DBP70(SEP [...] accurate and complete. Digitally Signed by SILVINO PEARL DO on 09/04/2024 11:55 AM Ashley GarciaLswqzabp30-60-2074 Note Subjective Patient states she is doing [...] area Neuro: Left upper extremity hemiparesis VITALS JmazukBnjlAIMneozZVHbU0XMC3XaidTu(kg) 09/03 21:4136.4--844116VY 09/03 15:52----64---- 09/03 08:46 09/03 08:28----90---- 09/03 08:0036.4--904651ED 24 Hr Tmax: 36.4 at 09/03 21:41 [...] tab(s), PEG, Daily, 08/15/24 17:09:00 EDT balsam [place]-castor oil topical (Venelex 788 mg-87 mg/g topical [...] None Problems (6) CVA (cerebral vascular accident) (716215257) Diabetes mellitus (005263728) Dysphagia (53810342) Hyperlipidemia (84822468) Hypertension (4711297262) Osteoarthritis (5152300537) ASSESSMENT/PLAN: Acute right basal ganglia hemorrhage with [...] HUTTON DO on 09/05/2024 08:57 AM Ashley GarciaDyawyqev93-55-0322 Note Subjective Patient states that she is [...] area Neuro: Left upper extremity hemiparesis VITALS JapetbCxlvHSMpkeiZRYsF2GKE3VcemKu(kg) 09/03 00:2636.3--362947DV 09/02 21:5136.2--272457YG 09/02 16:56----88--98RA 09/02 10:40 RA 09/02 09:0936.0--254634SD 24 Hr Tmax: 37.0 at 09/02 05:55 [...] tab(s), PEG, Daily, 08/15/24 17:09:00 EDT balsam [place]-castor oil topical (Venelex 788 mg-87 mg/g topical [...] SBP (mmHg) < 110, 1st dose location: [facility], 1, 08/15/24 17:09:00 EDT oxybutynin (oxybutynin [...] None Problems (6) CVA (cerebral vascular accident) (505642073) Diabetes mellitus (610610731) Dysphagia (68149187) Hyperlipidemia (29589276) Hypertension (8449991961) Osteoarthritis (8703066774) ASSESSMENT/PLAN: Acute right basal ganglia hemorrhage with [...] rs closely. [facility] with ice chips [...] NANDO HUTTON DO on 09/05/2024 08:57 AM [facility] HealthLxcqemdr05-11-9203 Note* Exam Date Time Procedure Performing Provider Status 09/02/24 2:[address] Head or Brain w/o Contrast Brenda MCCLELLAN MD; Auth (Verified) [id number] ORIGINAL HISTORY: Lethargy COMPARISON: No TECHNIQUE: Routine [...] 09/02/2024 3:10:44 PM Ordering Provider: SILVINO Scott Hwcwtupl35-82-0816 Telephone encounter Note* Telephone Encounter - Fouzia Miller LPN - 08/30/2024 10:09 AM EDT Marya with [facility] notified. [facility]04-18-2025 Miscellaneous Notes* Telephone Encounter - Fouzia Miller LPN - 08/30/2024 10:09 AM EDT Marya with [facility] notified. * Telephone Encounter - Mj Glover APRN.CNP - 08/30/2024 9:19 AM EDT Please let HH know that Dr. Caruso's team will follow HH orders. Okay to proceed. Mj Glover APRN.CNP * Telephone Encounter - Jaiden Paulino RN - 08/30/2024 9:07 AM EDT Marya- [facility] reports patient was in [facility] with dx: stroke, and [facility] Pt will be [facility]07[facility]24 to home with [facility] SN PT OT ST & [facility]ide. Asking if pcp agreeable to follow for [facility]HC. Please phone Marya with verbal: [phone] documented in this [facility]25 Telephone encounter Note * Telephone Encounter - Mj Glover APRN.CNP - 08/30/2024 9:19 AM EDT Please let know that Dr. Caruso's team will follow orders. Okay to proceed. Mj Glover APRN.CNP [facility]04-18-2025 Telephone encounter Note* Telephone Encounter - Jaiden Pualino RN - 08/30/2024 9:07 AM EDT Marya- [facility] reports patient was in [facility] with dx: stroke, and transferred to [facility]. Pt will be [facility]24 to home with [facility] SN PT OT ST & [facility]ide. Asking if pcp agreeable to follow for [facility]. Please phone Marya with verbal: [phone] [facility]04-14-2025 Note REFERRING PHYSICIAN: Silvino Pearl DO. CONSULTING PSYCHOLOGIST: Matthew Gibson, PhD. REASON FOR REFERRAL: Neuropsychological exam. HISTORY OF PRESENT ILLNESS: Ms. Acuna is a 78-year-old right-handed white female admitted to [facility] from [facility] on 08/15/2024 after developing left-sided weakness and slurred speech. Initially seen at [facility] where brain CT was negative.CTA [...] mild concussions suffered after a career in [employer]. No residual deficits reported. No other BREAD JOCKEY injuries or illnesses. MENTAL HEALTH HISTORY: No [...] of NPO. and Mrs. Acuna live in [place]. 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 She has a high school diploma from her hometown in [place], [place]. TEST RESULTS: I used the Cognistat, [...] testing in a week. I thank Dr. Pearl. 60 minutes FINAL DIAGNOSES: 1. 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 2. Probable premorbid dementia, probable Alzheimer's to be determined. MATTHEW GIBSON, PhD GM/NTS JOB#: [id number] DICTATION ID#: [id number] Digitally Signed by MATTHEW GIBSON PhD on 08/27/2024 08:21 AM Ashley Faawfyuv18-76-3598 Note* Exam Date Time Procedure Performing Provider Status 08/25/24 1:46 PM XR Hand and Wrist 6 Views Left Buck LAY DO; Auth (Verified) [id number] ORIGINAL EXAMINATION: 3 XRAY VIEWS OF THE [...] resident's findings and interpretation. Interpreted by: Jamar Lay DO Preliminary Report By: Padilla Barrera Electronically signed By Jamar Lay DO Dictated Date: 08/25/2024 1:58:31 PM Prelim Date: 08/25/2024 2:00:44 PM Sign Date: 08/25/2024 2:27:26 PM Ordering Provider: JACKLYN Garcia04-13-2025 Note* Exam Date Time Procedure Performing Provider Status 08/25/24 1:45 PM XR Shoulder Minimum 2 Views Left JAMAR LAY DO; Auth (Verified) [id number] ORIGINAL EXAMINATION: TWO XRAY VIEWS OF THE [...] resident's findings and interpretation. Interpreted by: Jamar Lay DO Preliminary Report By: Padilla Barrera Electronically signed By Jamar Lay DO Dictated Date: 08/25/2024 1:54:13 PM Prelim Date: 08/25/2024 1:57:23 PM Sign Date: 08/25/2024 2:26:45 PM Ordering Provider: JACKLYN Dyelawn04-13-2025 Note* Exam Date Time Procedure Performing Provider Status 08/25/24 1:43 PM XR Humerus Minimum 2 Views Left JAMAR LAY DO; Auth (Verified) [id number] ORIGINAL EXAMINATION: TWO XRAY VIEWS OF THE [...] resident's findings and interpretation. Interpreted by: Jamar Lay DO Preliminary Report By: Padilla Barrera Electronically signed By Jamar Lay DO Dictated Date: 08/25/2024 1:52:15 PM Prelim Date: 08/25/2024 1:55:41 PM Sign Date: 08/25/2024 2:26:11 PM Ordering Provider: JACKLYN Dyelawn04-06-2025 Note* Exam Date Time Procedure Performing Provider Status 08/18/24 3:08 PM XR Chest 1 View Contributor_system, FUJ I; Auth (Verified) [id number] ORIGINAL EXAMINATION: ONE XRAY VIEW OF THE [...] + Plan noteExtracted from: Title:Clinical Document Author:EZEQUIEL TURCIOS RN-DOUBLER OPERATOR Date:08/16/24 Acute Inpatient Rehab Histor y and Physical Date of Service: 08/16/2024 Date of Admission: 08/15/2024 Attending Physician: Dr. Pearl Impairment Group 1.1 left body involvement, right brain stroke Etiologic Diagnosis Hemorrhagic infarct involving right basal ganglia, mass effect with effacement of right lateral ventricle, tiny infarct in right cerebellum History of Present Illness 78-year-old female noted to home in inpatient rehab from [facility] stay 08/02 - 08/15 who is past medical history of coronary artery disease, diabetes mellitus type 2, atrial relation, hypertension, osteoarthritis, and hyperlipidemia who presented to the emergency room with noted left-sided weakness and slurred speech. She originally presented to [facility] with CT of the head was obtained showed no acute hemorrhage or large territory stroke. CTA showed mid right M1 occlusion however patient was not a TNK candidate. She was then transferred to a [facility] for further management. CT of head [...] feedings. Patient deemed medically stable transferred to [facility] for physical and occupational [...] with spouse, first- floor set up. Primary Circuit Breaker Supervisor: Self. Safe place to go: Yes. Lives [...] Rate80(AUG 15 20:06)80(AUG 15 20:06)80(AUG 15 20:06) SSE621(AUG 16 00:03)128(AUG 16 00:03)140(AUG 15 17:47) DBP76(AUG 16 00:03)76(AUG 16 00:03)80(AUG 15 17:47) 36hr Labs 08/15 1805 Blood Glucose, Fionrvqnp085W Blood Glucose, Dvjbrtaax620D Blood Glucose TSee Flowsheet Assessment/Plan Debility and [...] for, and in the presence of Miguel Turcios CNP. Miguel Roe CNP, personally performed the services described in this documentation, as scribed by, Anjelica Grover RN in my presence and it is both accurate and complete. [facility] 04-04-2025 Physical medicine and rehab Consult note INPATIENT REHAB MEDICAL CONSULT DATE OF ADMISSION: 08/16/2024 CC: Acute right basal hemorrhage HISTORY OF PRESENT ILLNESS: This is a 78-year-old female admitted to [facility] from [facility] stay 08/02 - 08/15 who has a history of CAD, DM2, atrial fibrillation and hypertension who presented to the ER after notingleft-sided weakness and slurred speech. Originally presented to [facility] where CT head was obtained [...] was deemed medically stable and transferred to [facility] for physical and occasional [...] Rate80(AUG 15 20:06)80(AUG 15 20:06)80(AUG 15 20:06) AXH356(AUG 16 00:03)128(AUG 16 00:03)140(AUG 15 17:47) DBP76(AUG [...] reviewed. 36hr Labs 08/15 1805 Blood Glucose, Xkzspqlqh443K Blood Glucose, Zrwsqiqjh773Z Blood Glucose TSee Flowsheet ASSESSMENT AND PLAN: [...] will follow during acute rehabilitation stay at [facility] with the goal of returning to a more independentliving status at the conclusion of the stay. Medications reviewed and up to date This document was transcribed using dictation software and may contain typographical errors. Jhonatan Roe RN, am scribing for, and in the presence of Yara Dueñas CNP. Yara Roe CNP, personally performed the services described in this documentation, as scribed byJhonatan RN in my presence and it is both accurate and complete. Digitally Signed by CATHERINE DUEÑAS on 08/17/2024 04:53 PM [facility] HealthAuzqdgnj93-41-3694 Physical medicine and rehab History and physical note Acute Inpatient Rehab History and Physical Date of Service: 08/16/2024 Date of Admission: 08/15/2024 Attending Physician: Dr. Pearl Impairment Group 1.1 left body involvement, right brain stroke Etiologic Diagnosis Hemorrhagic infarct involving right basal ganglia, mass effect with effacement of right lateral ventricle, tiny infarct in right cerebellum History of Present Illness 78-year-old female noted to home in inpatient rehab from [facility] stay 08/02 -08/15 who is past medical history of coronary artery disease, diabetes mellitus type 2, atrial relation, hypertension, osteoarthritis, and hyperlipidemia who presented to the emergency room with noted left-sided weakness and slurred speech. She originally presented to [facility] with CT of the head was obtained showed no acute hemorrhage or large territory stroke. CTA showed mid right M1 occlusion however patient was not a TNK candidate. [facility] showed [...] feedings. Patient deemed medically stable transferred to [facility] for physical and occupational [...] with spouse, first- floor set up. Primary Circuit Breaker Supervisor: Self. Safe place to go: Yes. Lives [...] Rate80(AUG 15 20:06)80(AUG 15 20:06)80(AUG 15 20:06) BFS139(AUG 16 00:03)128(AUG 16 00:03)140(AUG 15 17:47) DBP76(AUG 16 00:03)76(AUG 16 00:03)80(AUG 15 17:47) 36hr Labs 08/15 1805 Blood Glucose, Qgejabkkm339O Blood Glucose, Uobzliejt626U Blood Glucose TSee Flowsheet Assessment/Plan Debility and [...] for, and in the presence of Miguel Turcios CNP. IMiguel CNP, personally performed the services described in this documentation, as scribed by, Anjelica Grover RN in my presence and it is both accurate and complete. Digitally Signed by EZEQUIEL TURCIOS on 08/22/2024 05:17 AM [place] [address]-03-2025 Miscellaneous Notes* Nursing Notes - Robson Steel [...] pacing over x3-5 sessions Outcome: Ongoing Problem: COMMUNICATIONS PROFESSOR - Cognition Goal: Orientation Log - Patient [...] pacing over x3-5 sessions Outcome: Ongoing Problem: COMMUNICATIONS PROFESSOR - Cognition Goal: Orientation Log - 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 - If used superintendent terminal, initial PEG should be changed in 6-12 months depending on tube condition. - No plans for repeat outpatient EGD at this time based on clinical status Jonnie Mccabe MD Division of Gastroenterology, Hepatology, and Nutrition Clinical Fellow PGY-4 Pager: [phone] * Plan of Care - Manisha Cheema [...] what the specific medication was. Daughter, Keagan [phone] would be able to answer questions. Catherine [...] 08/07/2024 5:00 PM EDT On admission to [facility], from another [facility] inpatient unit a [...] oropharyngeal swallow function to most appropriately guide COMMUNICATIONS PROFESSOR plan of care Outcome: Met Goal: Bolus [...] readiness for diet advancement Outcome: Met Problem: COMMUNICATIONS PROFESSOR - Cognition Goal: Orientation Log - Patient [...] better assess deficits and most appropriately guide COMMUNICATIONS PROFESSOR plan of care Outcome: Met Goal: Attention: [...] of Care: 1. Diet: NPO. Advancement per team/COMMUNICATIONS PROFESSOR recommendation 2. Ordered TF: Glucerna 1.5 @ [...] Ongoing * Plan of Care - Dona Shapr OT - 08/04/2024 9:18 AM EDT Problem: [...] readiness for diet advancement Outcome: Ongoing Problem: COMMUNICATIONS PROFESSOR - Cognition Goal: Orientation Log - Patient [...] better assess deficits and most appropriately guide COMMUNICATIONS PROFESSOR plan of care Outcome: Ongoing * Nursing Notes - Aniyah Torre RN - 08/02/2024 6:13 PM EDT [facility] a dual RN initial assessment [...] change from previous assessment. Pt transferred [facility] via cart accompanied by Denae ENRIQUEZ. T on room air, tele and pulse ox. * Nursing Notes - Sophie Jenkins RN - 08/02/2024 3:44 PM EDT Report received from JA Barboza. * Op Note - Pream Ramos MD - 08/02/2024 3:29 PM EDT [...] under emergency consent. SURGEON(S): Prema Ramos MD FLYING SHEAR OPERATOR(S): None ANESTHESIA: Monitored anesthesia care DESCRIPTION [...] with TICI 2b revascularization as described above. Pream Ramos MD * Brief Op Note - Prema Ramos MD - 08/02/2024 3:26 PM EDT Lindsay Acuna ([id number]) PRE OPERATIVE DIAGNOSIS Cerebral infarction due to [...] - Primary ANESTHESIOLOGIST Anesthesiologist: Tameka Ruth MD INDIVIDUAL PENSION CONSULTANT: Bebo Barboza APRN-INDIVIDUAL PENSION CONSULTANT SURGICAL STAFF Manager Continuous Improvement: Rachell Ruffin RN Recreation Therapist: Paulina Muñiz; Radha Morales COMPLICATIONS None ESTIMATED BLOOD LOSS Minimal SPECIMENS No specimen sent * No specimens in log * Prema Ramos MD August 02, 2024 3:26 PM [facility] History of Present illness Narrative* OWEN Benavides - 08/15/2024 9:01 AM EDT Care Management Discharge Note Selected Continued Care - Admitted Since 08/02/2024 Destination Coordination complete. Service Provider Services Address Phone Fax Patient Preferred [place] [address] -- -- Internal Comment last updated by OWEN Benavides 08/15/2024 0901 Report fax: [phone] Transport Request Mode of Transfer: [facility] Name of Discharge Transport Company: [employer] Discharge Transport ETA: 08/15/2024 @ 1030 Patient medically stable for discharge per physician/medical team. Pt has neurology appointment scheduled. Pt/ to schedule appointment with PCP. Patient/Laboratory Apparatus Glass Grinder remain in agreement withthe discharge plan. BULMARO [employer] Section Foreman * OWEN Benavides - 08/14/2024 3:17 PM [...] numbersfor RN report tomorrow morning. BULMARO [employer] Section Foreman * Marybeth Ayoub - 08/14/2024 2:51 PM EDT Care Management Progress Note Transportation for discharge arranged Mode of Transfer: (P) BLS Name of Discharge Transport Company: (P) [facility] ETA: (P) 08/15/2024 @ 1030 Pick-up from [facility] 1032/A Destination Ashley ALVARADO [address] [facility] [id number] OWEN Morrell [employer] Section Foreman Tube Mill Operator [phone] * Jazzy Aguiar - 08/14/2024 9:47 AM [...] position Mobility Assessment/Intervention: Supine to Sit Mobility Harbinger Level: Supine->Sit: moderate assist (50% patient effort) Physical Assist: Supine->Sit: 2 person assist Bed Features/Set-up: Supine->Sit: Head of bed elevated, Use of bed rail Skilled Rationale: Verbal cues, Tactile cues, Hand placement, Positioning, Technique of activity Skilled Intervention/Details: Supine->Sit: Cues for technique of transfer and pt needing increased assistance for managing legs and trunk to EOB positioning Transfer Assessment/Intervention: Sit to Stand Transfer Harbinger Level: Sit->Stand: moderate assist (50% patient effort) [...] hand held support Stand to Sit Transfer Harbinger Level: Stand->Sit: moderate assist (50% patient effort) Physical Assist: Stand->Sit: 2 person assist Assistive Device: Stand->Sit: gait belt, hand held assist Skilled Rationale: Verbal cues, Tactile cues, Hand placement, Positioning, Controlled descent for sitting Skilled Intervention/Details: Stand->Sit: Cues for positioning with BSC and recliner, pt provided bilat hand held support and needing increased support for managing a controlled descent Bed-Chair Transfer Harbinger Level: Bed<->Chair: maximum assist (25% patient effort) [...] managing L side during transfer Toilet Transfer Harbinger Level: Toilet: moderate assist (50% patient effort) [...] Outcome Score(s): CURRENT [facility] Daily Activity Inpatient Short Form Putting on/Taking Off Lower Body Clothin - Total Assistance Bathin - A Lot of Assistance Toiletin - Total Assistance Putting on/Taking Off Upper Body Clothin - A Little Assistance Groomin - A Little Assistance Eatin - Total Assistance CURRENT -[facility] Activity Raw Score: 11 CURRENT -[facility] Activity Functional Limitation/Modifier: 70.42% Currently [...] person, Oriented to place, Oriented to situation ("[place]" "hospital" "May" "2024" "stroke") Following Commands: Follows [...] blocking Mobility Assessment/Intervention: Supine to Sit Mobility Harbinger Level: Supine->Sit: moderate assist (50% patient effort) [...] sitting) Transfer Assessment/Intervention: Sit to Stand Transfer Harbinger Level: Sit->Stand: moderate assist (50% patient effort) Physical Assist: Sit->Stand: 2 person assist Assistive Device: Sit->Stand: gait belt Skilled Rationale: Arm in arm, Patellar block, Ischial assist, Facilitate anterior shift, Full extension to upright positioning/posture, Finding/maintaining midline positioning Skilled Intervention/Details: Sit->Stand: repeat cues to avoid significant L lean with improvement last standing. x1 from EOB, x2 from BSC Stand to Sit Transfer Harbinger Level: Stand->Sit: moderate assist (50% patient effort) Physical Assist: Stand->Sit: 2 person assist Assistive Device: Stand->Sit: gait belt Skilled Rationale: Arm in arm, Controlled descent for sitting Skilled Intervention/Details: Stand->Sit: last trial assisted R hand to recliner arm rest and ongoing cues for wt shift to R Bed-Chair Transfer Harbinger Level: Bed<->Chair: maximum assist (25% patient effort) [...] Outcome Score(s): CURRENT [facility] Basic Mobility Inpatient Short Form Turning over [...] Total Assistance CURRENT [facility] Mobility Raw Score: 8 CURRENT [facility] Mobility Functional Limitation: 86.62% Impaired in Basic Mobility Interventions: Intervention 1 Intervention Name: BANNER supine and sitting Details: education L attention [...] 10 Treating Therapist: Shaina Rosales PT, DPT [id number] 08/14/2024 Additional Details: PT Co-Eval/Treatment Information Co-evaluation/co-treatment [...] Physical Therapy Discharge Summary. * Tanja Cason, COMMUNICATIONS PROFESSOR - 08/14/2024 8:37 AM EDT Acute Care [...] on the below outcome measures/assessment score(s) and COMMUNICATIONS PROFESSOR clinicaljudgment, discharge destination recommendation is: IPR Barriers to discharge home: 1:1 assist needed for IADL's including medication management and finances Supporting factors for discharge setting: Impaired swallow function limiting nutritional status andsafety with oral intake, Impaired cognitive skills limiting safety/insight Acute COMMUNICATIONS PROFESSOR Outcomes Tracking Communicate basic wants and needs?: [...] independent carry over. Strong family support. Ongoing COMMUNICATIONS PROFESSOR s indicated. Subjective information: Alert, present. SO referenced his notes from yesterday and reportedcarry over of exercises yesterday. Patient with zero recall Pain: Nonverbal indicator not present Precautions: Patient Safety Communication Prior to Visit: Nursing Lines/Tubes/Drains (Rehab Status): Telemetry, Tube feed Existing Precautions/Restrictions: fall Respiratory Status: O2 Sat (%): 96 % (08/14 0711) O2 Device: room air (08/14 0947) Acute COMMUNICATIONS PROFESSOR Goals Plan of Care by Tanja Cason, COMMUNICATIONS PROFESSOR at 08/14/2024 2:42 PM Version 1 of [...] RoM to achieve technique. Outcome: Ongoing Problem: COMMUNICATIONS PROFESSOR - Cognition Goal: Orientation Log - Patient [...] next session: 08/14 - ongoing exercises, education COMMUNICATIONS PROFESSOR Outcomes: FOIS 2 Speech Language Pathologist: RIKI [...] of session: none altered Needs in reach. COMMUNICATIONS PROFESSOR Evaluation and Treatment Time Speech Therapy - Individual 26776: 14 Swallowing Dysfunction Treatment 09632: 14 Upon discontinuation of Acute Care Speech [...] on the below outcome measures/assessment score(s) and COMMUNICATIONS PROFESSOR clinicaljudgment, discharge destination recommendation is: Inpatient Rehab Facility Barriers to discharge home: 1:1 assist needed for IADL's including medication management and finances Supporting factors for discharge setting: Impaired swallow function limiting nutritional status andsafety with oral intake, Impaired cognitive skills limiting safety/insight Acute COMMUNICATIONS PROFESSOR Outcomes Tracking Communicate basic wants and needs?: [...] O2 Device: room air (08/13 710) Acute COMMUNICATIONS PROFESSOR Goals Plan of Care by Tanja Cason COMMUNICATIONS PROFESSOR at 08/13/2024 11:10 AM Version 1 of [...] 10 reps this session. Outcome: Ongoing Problem: COMMUNICATIONS PROFESSOR - Cognition Goal: Orientation Log - Patient [...] considerations: Cognition Patient Instruction/Education comments: Role of COMMUNICATIONS PROFESSOR, presence and normalized frustration with cognitive-communicative impairments. Focused on memory this date and that patient does not recall education so perseverative questions are normal. Reviewed intermittent silent aspiration from MBS last weekand ongoing signs of dysphagia this session, will plan to coordinate timing for repeat instrumentalwith care team Plan for next session: 08/13 -fair COMMUNICATIONS PROFESSOR Outcomes: FOIS 2 Speech Language Pathologist: RIKI [...] of session: none altered Needs in reach. COMMUNICATIONS PROFESSOR Evaluation and Treatment Time Speech Therapy - Individual 18014: 12 Swallowing Dysfunction Treatment 90102: 13 Upon discontinuation of Acute Care Speech Therapy Services or patient discharge from the hospital this note represents the current Speech Therapy Discharge Summary * OWEN Benavides - 08/12/2024 3:21 PM EDT Placement Plan Expected Discharge Date: 08/14/2024 Referred Level of Care: IPR Barriers: Medical Readiness & Precertification Current Referrals and Status 1. Ashley Garcia-accepted IPR started precertification today. BULMARO [employer] Section Foreman * Jazzy Aguiar - 08/12/2024 10:46 AM [...] sinkside Mobility Assessment/Intervention: Supine to Sit Mobility Harbinger Level: Supine->Sit: moderate assist (50% patient effort) [...] positioning Transfer Assessment/Intervention: Sit to Stand Transfer Harbinger Level: Sit->Stand: maximum assist (25% patient effort) [...] maintaining upright posture Stand to Sit Transfer Harbinger Level: Stand->Sit: maximum assist (25% patient effort) Physical Assist: Stand->Sit: 2 person assist Assistive Device: Stand->Sit: gait belt, hand held assist Skilled Rationale: Verbal cues, Tactile cues, Hand placement, Positioning, Controlled descent for sitting Skilled Intervention/Details: Stand->Sit: Cues for positioning with recliner and using BUEs to help with appropriate positoining of hips in chair Bed-Chair Transfer Harbinger Level: Bed<->Chair: maximum assist (25% patient effort) Physical Assist: Bed<->Chair: 2 person assist Assistive Device: Bed<->Chair: gait belt Skilled Rationale: Verbal cues, Tactile cues, Hand placement, Positioning, Technique of activity Skilled Intervention/Details: Bed<->Chair: x1 from EOB to recliner on R. Pt needing increasedsupport for managing L side and sequencing steps for appropriate positioning with recliner Outcome Score(s): CURRENT [facility] Daily Activity Inpatient Short Form Putting on/Taking Off Lower Body Clothin - Total Assistance Bathin - A Lot of Assistance Toiletin - Total Assistance Putting on/Taking Off Upper Body Clothin - A Lot of Assistance Groomin - A Lot of Assistance Eatin - Total Assistance CURRENT [facility] Activity Raw Score: 9 CURRENT [facility] Activity Functional Limitation/Modifier: 79.59% Currently Impaired in [...] speech and L hemiplegia. She presented to [facility] and was seen on Telestroke, [...] goal TF volume. Pt last assessed by COMMUNICATIONS PROFESSOR 08/08 with recommendations for NPO. S/p PEG [...] chips. Will also increase free water flushes. COMMUNICATIONS PROFESSOR to see pt tomorrow. Nutrition Focused Physical Exam: Nutrition Focused Physical Exam Completed?: completed Subcutaneous Fat Loss: Orbital Region (Orbital Fat Pads): WDL Cheek Region (Buccal Fat Pads): WDL Upper Arm Region (Triceps): WDL Thoracic and Lumbar Region (Ribs, Lower Back, Midaxillary Line): WDL Muscle Wasting: Cheondoism Region (Temporalis Muscle): deferred (lac over eyebrow) [...] lb) 06/26/24 78.9 kg (174 lb)-[facility] 05/31/24 79 kg (174 lb 2.6 oz)-[facility] 11/28/23 80.6 kg (177 lb 9.6 oz)-[facility] 09/29/23 84 kg (185 lb)-[facility] meds reviewed: Scheduled: Reviewed, includes [...] Needs: Weight Used: 61 kg (IBW) EEN: 0411-7454 kcal/day (25-30 kcal/kg) EPN: 73-92 g/day (1.2-1.5 g/kg) EFN: 1830 mL/day (30 mL/kg) or per primary team Malnutrition Statement: Does the patient meet criteria for malnutrition: No *Based on [employer] and [employer]EN Indicators to Diagnose Malnutrition (AAIM) criteria (2012) Tianna Murray RD, LD, CSNC Pager #[phone] * Katie Ramos, PT - 08/12/2024 10:22 [...] standing. Mobility Assessment/Intervention: Supine to Sit Mobility Harbinger Level: Supine->Sit: moderate assist (50% patient effort) Physical Assist: Supine->Sit: 2 person assist Bed Features/Set-up: Supine->Sit: Head of bed elevated Skilled Rationale: Verbal cues, Tactile cues, Hand placement, Technique of activity Skilled Intervention/Details: Supine->Sit: verbal/tactile cues for instruction on transfer technique and mod A x 2 for LE and trunk management. Transfer Assessment/Intervention: Sit to Stand Transfer Harbinger Level: Sit->Stand: maximum assist (25% patient effort) Physical Assist: Sit->Stand: 2 person assist Assistive Device: Sit->Stand: gait belt Skilled Rationale: Verbal cues, Tactile cues, Hand placement, Technique of activity Skilled Intervention/Details: Sit->Stand: x2 trials with verbal/tactile cues for instruction on transfer technique, hand placement, and blocking left knee. Bed-Chair Transfer Harbinger Level: Bed<->Chair: maximum assist (25% patient effort) Physical Assist: Bed<->Chair: 2 person assist Assistive Device: Bed<->Chair: gait belt Skilled Rationale: Verbal cues, Tactile cues, Hand placement, Technique of activity Skilled Intervention/Details: Bed<->Chair: x1 trial from EOB to chair to the right. Verbal/tactile cues for instruction on transfer technqiue, blocking left knee. Outcome Score(s): CURRENT [facility] Basic Mobility Inpatient Short Form Turning over [...] Total Assistance CURRENT [facility] Mobility Raw Score: 7 CURRENT [facility] Mobility Functional Limitation: 92.36% Impaired in Basic [...] Physical Therapy Discharge Summary. * Radha Gr, GREENHOUSE MANAGER-DOUBLER OPERATOR - 08/11/2024 7:15 AM EDT NEUROVASCULAR STROKE SERVICE Daily Progress Note IDENTIFYING INFORMATION Lindsay Acuna MR# [id number] 08/11/2024 HISTORY OF PRESENT ILLNESS Lindsay Acuna is a 78 y.o. female with PMH significant for CAD, HTN, HLD, T2DM, Afib (on Eliquis, although patient reports she has not been taking it) who presents with L hemiplegia, slurred speech. LKW 0915 on 08/02, later found down with slurred speech and L hemiplegia. She presented to [facility] and was seen on Telestroke, [...] 2b revascularization. INTERVAL HISTORY 08/05: Transfer [place] [facility] tomorrow 08/06: Failed MBS. Increased lopressor. [...] (home dose), give mag , NPO at [place] for [facility]AB[facility] PHYSICAL EXAM Gen: awake, alert [...] today 08/11 -Rate controlled on metoprolol Dysphagia: -COMMUNICATIONS PROFESSOR following -NPO, DHT + TF -Failed MBS [...] Lindsay Acuna will likely be discharged to [facility] when medically ready Radha Gr APRN-DOUBLER OPERATOR 08/11/2024 10:17 AM VITAL SIGNS Temp: [...] for specific therapeutic recommendations, please see the animal handler report of the speech pathologist. Examination performed [...] and neurological examinations as recorded by the STATE [employer] repeated and confirmed. I have personally reviewed [...] tooth. Blood cx unremarkable. * Radha Gr, GREENHOUSE MANAGER-DOUBLER OPERATOR - 08/10/2024 7:14 AM EDT NEUROVASCULAR STROKE SERVICE Daily Progress Note IDENTIFYING INFORMATION Lindsay Acuna MR# [id number] 08/10/2024 HISTORY OF PRESENT ILLNESS Lindsay Acuna is a 78 y.o. female with PMH significant for CAD, HTN, HLD, T2DM, Afib (on Eliquis, although patient reports she has not been taking it) who presents with L hemiplegia, slurred speech. LKW 0915 on 08/02, later found down with slurred speech and L hemiplegia. She presented to [facility] and was seen on Telestroke, [...] 2b revascularization. INTERVAL HISTORY 08/05: Transfer [place] [facility] [place] 08/06: [...] as above -Rate controlled on metoprolol Dysphagia: -COMMUNICATIONS PROFESSOR following -NPO, DHT + TF -Failed MBS [...] Lindsay Acuna will likely be discharged to [facility] when medically ready Radha Gr, GREENHOUSE MANAGER-DOUBLER OPERATOR 08/10/2024 7:14 AM VITAL SIGNS Temp: [...] for specific therapeutic recommendations, please see the animal handler report of the speech pathologist. Examination performed [...] skin and external bumper. - If used superintendent terminal, PEG should be changed every 3-6 months [...] Hepatology, and Nutrition Clinical Fellow PGY-4 Pager: [phone] For follow up questions regarding this patient 7am to 5pm, contact the IBD consults fellow or DAHLIA on [employer]. [facility]--> Internal Medicine--> Gastroenterology, Hepatology, & Nutrition--> IBD Consult Service Fel Day OR IBD Consult Service DAHLIA Day For urgent/stat calls or new consults 5pm to 7am or all day on the weekend, please page the on-callGI fellow on [employer]. [facility]--> Internal Medicine--> Gastroenterology, Hepatology, & Nutrition--> 1st Call Fel Miriam OR STAT/NEW GI Cons Wknd Fel Day Cosigned by Niru Koch MD at 08/10/2024 2:11 PM EDT * OWEN Benavides - 08/09/2024 3:34 PM EDT Placement Plan Expected Discharge Date: Referred Level of Care: IPR Barriers: Medical Readiness and Precertification Current Referrals and Status 1. Ashley Garcia IPR-accepted IPR will start precertification on Monday after updated therapy notes are in. For Case Management assistance for the weekend, please contact CM for assistance as needed (8:00am-4:30pm) BASH: [phone] Maria: [phone] Johan: [phone] Ross: [phone] For Social Work assistance for the weekend, please contact SW for assistance as needed (8:00am - 4:30pm): BASH: [phone] Maria: [phone] Johan: [phone] Ross: [phone] * Radha Gr APRN-GARRETT - 08/09/2024 8:07 AM EDT NEUROVASCULAR STROKE SERVICE Daily Progress Note IDENTIFYING INFORMATION Lindsay Acuna MR# [id number] 08/09/2024 HISTORY OF PRESENT ILLNESS Lindsay Acuna is a 78 y.o. female with PMH significant for CAD, HTN, HLD, T2DM, Afib (on Eliquis, although patient reports she has not been taking it) who presents with L hemiplegia, slurred speech. LKW 0915 on 08/02, later found down with slurred speech and L hemiplegia. She presented to [facility] and was seen on Telestroke, [...] 2b revascularization. INTERVAL HISTORY 08/05: [place] [facility] [place] 08/06: [...] as above -Rate controlled on metoprolol Dysphagia: -COMMUNICATIONS PROFESSOR following -NPO, DHT + TF -Failed MBS [...] Lindsay Acuna will likely be discharged to [facility] when medically ready Radha Gr, GREENHOUSE MANAGER-DOUBLER OPERATOR 08/09/2024 8:07 AM VITAL SIGNS Temp: [...] for specific therapeutic recommendations, please see the animal handler report of the speech pathologist. Examination performed [...] on the below outcome measures/assessment score(s) and COMMUNICATIONS PROFESSOR clinicaljudgment, discharge destination recommendation is: Inpatient Rehab Facility Acute COMMUNICATIONS PROFESSOR Outcomes Tracking Communicate basic wants and needs?: [...] pressions and introduction to effortful swallow exercise. COMMUNICATIONS PROFESSOR provided education regarding recommendation of NPO given [...] constraints (transport arrived for pt's CT scan). COMMUNICATIONS PROFESSOR will follow as able. Subjective information: Patient upright in chair, at bedside. Agreeable to COMMUNICATIONS PROFESSOR session. Pain: General Pain Documentation (Adult, OB, [...] room air Flow (L/min): [3] 3 Acute COMMUNICATIONS PROFESSOR Goals Plan of Care by RIKI Penaloza [...] phsyiology, risks of aspiration pneumonia). Educated regarding COMMUNICATIONS PROFESSOR role in swallow rehab and future POC Plan for next session: 08/06: cog tx and dysphagia exercises COMMUNICATIONS PROFESSOR Outcomes: FOIS: 1 Speech Language Pathologist: RIKI Penaloza Time In: 1310 Time Out: 1330 Total Visit Time: 20 minutes Total Treatment Time (skilled, billable minutes): 20 minutes Non-billable assistance during session: NA Assisted by during session: NA PPE used during patient interaction: gloves Patient location/status at end of session: chair Patient alarms at end of session: none altered Needs in reach. COMMUNICATIONS PROFESSOR Evaluation and Treatment Time Swallowing Dysfunction Treatment 74666: 20 Upon discontinuation of Acute Care Speech [...] feedback Mobility Assessment/Intervention: Supine to Sit Mobility Harbinger Level: Supine->Sit: moderate assist (50% patient effort) Physical Assist: Supine->Sit: 2 person assist Bed Features/Set-up: Supine->Sit: Use of bed rail, Head of bed elevated Skilled Rationale: Sequencing, Verbal cues, Hand placement, Positioning Skilled Intervention/Details: Supine->Sit: increased time/cues Transfer Assessment/Intervention: Sit to Stand Transfer Harbinger Level: Sit->Stand: moderate assist (50% patient effort) Physical Assist: Sit->Stand: 2 person assist Assistive Device: Sit->Stand: gait belt, hand held assist Skilled Rationale: Positioning, Sequencing, Hand placement, Verbal cues Skilled Intervention/Details: Sit->Stand: Pt educated in sit to stand transfers x 2 attempts, one from EOB and one from chair Bed-Chair Transfer Harbinger Level: Bed<->Chair: maximum assist (25% patient effort) [...] Outcome Score(s): CURRENT [facility] Basic Mobility Inpatient Short Form Turning over [...] Total Assistance CURRENT [facility] Mobility Raw Score: 8 CURRENT [facility] Mobility Functional Limitation: 86.62% Impaired in Basic [...] positioning Mobility Assessment/Intervention: Supine to Sit Mobility Harbinger Level: Supine->Sit: moderate assist (50% patient effort) [...] positioning Transfer Assessment/Intervention: Sit to Stand Transfer Harbinger Level: Sit->Stand: moderate assist (50% patient effort) Physical Assist: Sit->Stand: 2 person assist Assistive Device: Sit->Stand: gait belt, hand held assist Skilled Rationale: Verbal cues, Tactile cues, Hand placement, Positioning, Technique of activity Skilled Intervention/Details: Sit->Stand: x1 from EOB, x1 from recliner. Cues for technique and assuming an upright posture once standing Stand to Sit Transfer Harbinger Level: Stand->Sit: moderate assist (50% patient effort) Physical Assist: Stand->Sit: 2 person assist Assistive Device: Stand->Sit: gait belt, hand held assist Skilled Rationale: Verbal cues, Tactile cues, Hand placement, Positioning, Controlled descent for sitting Skilled Intervention/Details: Stand->Sit: Cues for positioning with recliner and using arms to help with controlled descent into chair Bed-Chair Transfer Harbinger Level: Bed<->Chair: maximum assist (25% patient effort) [...] Outcome Score(s): CURRENT [facility] Daily Activity Inpatient Short Form Putting on/Taking Off Lower Body Clothin - Total Assistance Bathin - A Lot of Assistance Toiletin - Total Assistance Putting on/Taking Off Upper Body Clothin - A Lot of Assistance Groomin - A Lot of Assistance Eatin - Total Assistance CURRENT [facility] Activity Raw Score: 9 CURRENT [facility] Activity Functional Limitation/Modifier: 79.59% Currently Impaired in [...] clinical decisions and judgements. * Bella Cardenas, GREENHOUSE MANAGER-DOUBLER OPERATOR - 08/08/2024 7:21 AM EDT NEUROVASCULAR STROKE SERVICE Daily Progress Note IDENTIFYING INFORMATION Lindsay Acuna MR# [id number] 08/08/2024 HISTORY OF PRESENT ILLNESS Lindsay Acuna is a 78 y.o. female with PMH significant for CAD, HTN, HLD, T2DM, Afib (on Eliquis, although patient reports she has not been taking it) who presents with L hemiplegia, slurred speech. LKW 0915 on 08/02, later found down with slurred speech and L hemiplegia. She presented to [facility] and was seen on Telestroke, [...] 2b revascularization. INTERVAL HISTORY 08/05: [place] [facility] tomorrow 08/06: Failed MBS. Increased lopressor. [...] as above -Rate controlled on metoprolol Dysphagia: -COMMUNICATIONS PROFESSOR following -NPO, DHT + TF -Failed MBS [...] Lindsay Acuna will likely be discharged to [facility] when medically ready Bella Cardenas, GREENHOUSE MANAGER-DOUBLER OPERATOR 08/08/2024 2:53 PM VITAL SIGNS Temp: [...] for specific therapeutic recommendations, please see the animal handler report of the speech pathologist. Examination performed [...] availability Current Referrals and Status 1. [facility] notified SW student confirming after call with Patient's daughter that [facility] is facility of choice. Facility reserved. AVS/DAVE [...] and patient's spouse are agreeable to [facility] facility of choice, and Gisela is agreeable to [facility] as well. Updated SW student. Simin Resendez RN, BSN Clinical Lard Tub Washer [facility] * Chela Hannon - 08/07/2024 2:08 PM EDT Placement Plan RAW STOCK MACHINE LOADER met with Patient and spouse at bedside to discuss facility choice. Spouse mentioned that [facility] was first choice, though RAW STOCK MACHINE LOADER provided update that [place] could not accept after reviewing. RAW STOCK MACHINE LOADER reviewed other IPR options with Spouse, who reports that [facility] facility of choice. Spouse discussed with daughter Gisela via phone, who is in agreement but requestsa return call. RAW STOCK MACHINE LOADER notified CCM. Chela Snyder, Social Work Student Available by Secure Chat Cosigned by OWEN Keller at 08/07/2024 2:11 PM EDT * Bella Cardenas APRN-GARRETT - 08/07/2024 6:54 AM EDT NEUROVASCULAR STROKE SERVICE Daily Progress Note IDENTIFYING INFORMATION Lindsay Acuna MR# [id number] 08/07/2024 HISTORY OF PRESENT ILLNESS Lindsay Acuna is a 78 y.o. female with PMH significant for CAD, HTN, HLD, T2DM, Afib (on Eliquis, although patient reports she has not been taking it) who presents with L hemiplegia, slurred speech. LKW 0915 on 08/02, later found down with slurred speech and L hemiplegia. She presented to [facility] and was seen on Telestroke, [...] 2b revascularization. INTERVAL HISTORY 08/05: Transfer to [place]. MBS tomorrow 08/06: Failed MBS. Increased lopressor. [...] as above -Rate controlled on metoprolol Dysphagia: -COMMUNICATIONS PROFESSOR following -NPO, DHT + TF -Failed MBS [...] Lindsay Acuna will likely be discharged to [facility] when medically ready Bella Cardenas, GREENHOUSE MANAGER-DOUBLER OPERATOR 08/07/2024 3:06 PM VITAL SIGNS Temp: [...] for specific therapeutic recommendations, please see the animal handler report of the speech pathologist. Examination performed [...] authorization, transportation Current Referrals and Status 1. [facility]: Available 2. [facility]: Available 3. [facility]: Available (pending PEG or diet and their MD requested aspirin started before discharge) 4. [facility]: Available 5. [facility]: Unavailable, out of network 6. [facility]: Unavailable, Incorrect Level of Care 7. [facility] IPR: sent Met with patient and patient's spouse, Ike, at bedside to provide choice list. Ike called patient's daughter, Gisela Acuna, to discuss as well. Gisela requested information on private pay at [facility], messaged [facility] liaison and then provided information to Gisela. Gisela requested CM sendreferral to [facility] IPR. Plan for family to review choice list FREDRICK camargo/SW team will update patient and family regarding [facility] IPR response tomorrow morning. This CM's contact information provided to Ike Acuna and Gisela Acuna for any further questions. Simin Resendez RN, BSN Clinical Lard Tub Washer [facility] * Florinda Velasquez, PT - 08/06/2024 2:30 [...] minutes Mobility Assessment/Intervention: Supine to Sit Mobility Harbinger Level: Supine->Sit: moderate assist (50% patient effort) Bed Features/Set-up: Supine->Sit: Head of bed elevated, Use of bed rail Skilled Rationale: Positioning, Sequencing Skilled Intervention/Details: Supine->Sit: step by step cues for sequencingg Transfer Assessment/Intervention: Sit to Stand Transfer Harbinger Level: Sit->Stand: moderate assist (50% patient effort) [...] left UE during transitional movements Bed-Chair Transfer Harbinger Level: Bed<->Chair: moderate assist (50% patient effort) Physical Assist: Bed<->Chair: 2 person assist Assistive Device: Bed<->Chair: gait belt, hand held assist Skilled Rationale: Positioning, Hand placement, Verbal cues, Sequencing Skilled Intervention/Details: Bed<->Chair: Pt educated in bed to C commode transfer x 2-3 steps with cues for LE sequencing, left LE weakness requiring intermittent blocking Gait/Functional Mobility Assessment/Intervention: Gait Assessment Harbinger Level: Gait: (mod/max) Physical Assist: Gait: 2 [...] prevent buckling. Stairs Assessment/Intervention: Outcome Score(s): CURRENT [facility] Basic Mobility Inpatient Short Form [...] Total Assistance CURRENT [facility] Mobility Raw Score: 9 CURRENT [facility] Mobility Functional Limitation: 81.38% Impaired in Basic [...] Discharge Summary. * Nimesh Balderrama [facility] - 08/06/2024 1:42 PM EDT Department of Pharmacy Admission Medication Reconciliation Note Patient: Lindsay Acuna Room/Bed: 1043/A I have reviewed the patient's home medication list with the following sources Dispense Report. The home medication list status is: complete. All changes to the home medication list have been updated in [facility]. Updated NETWORK LIAISON Med List: Prior to Admission Medications Prescriptions [...] further questions. Name: Nimesh Balderrama [facility] Phone #: [phone] Date/Time: 08/06/2024 1:42 PM Time Spent: 10 [...] control, Facilitate positioning Grooming Intervention/Details: Seated at [facility], pt completed brushing hair and setting up [...] noted Mobility Assessment/Intervention: Supine to Sit Mobility Harbinger Level: Supine->Sit: moderate assist (50% patient effort) [...] completion. Transfer Assessment/Intervention: Sit to Stand Transfer Harbinger Level: Sit->Stand: (x 1 trial from EOB [...] and kyphotic posture. Stand to Sit Transfer Harbinger Level: Stand->Sit: moderate assist (50% patient effort) Assistive Device: Stand->Sit: gait belt (Arm and arm assist.) Skilled Rationale: Cues for increased safety, Initiation and execution of task, Technique of activity, Controlled descent for sitting, Ischial assist, Arm in arm, Tactile cues, Verbal cues, Hand placement, Sequencing, Positioning Bed-Chair Transfer Harbinger Level: Bed<->Chair: moderate assist (50% patient effort) [...] with left LE). Functional Mobility: Functional Mobility Harbinger Level: Functional Mobility/Gait: (Moderate-max assistance) Physical Assist: [...] Outcome Score(s): CURRENT [facility] Daily Activity Inpatient Short Form Putting on/Taking Off Lower Body Clothin - Total Assistance Bathin - A Lot of Assistance Toiletin - Total Assistance Putting on/Taking Off Upper Body Clothin - A Lot of Assistance Groomin - A Lot of Assistance Eatin - Total Assistance ([place]obhoff.) CURRENT [facility] Activity Raw Score: 9 CURRENT [facility] Activity Functional Limitation/Modifier: 79.59% Currently Impaired in [...] Therapy Discharge Summary. * Taran Zamudio León, GREENHOUSE MANAGER-DOUBLER OPERATOR - 08/06/2024 7:49 AM EDT NEUROVASCULAR STROKE SERVICE Daily Progress Note IDENTIFYING INFORMATION Lindsay Acuna MR# [id number] 08/06/2024 HISTORY OF PRESENT ILLNESS Lindsay Acuna is a 78 y.o. female with PMH significant for CAD, HTN, HLD, T2DM, Afib (on Eliquis, although patient reports she has not been taking it) who presents with L hemiplegia, slurred speech. LKW 0915 on 08/02, later found down with slurred speech and L hemiplegia. She presented to [facility] and was seen on Telestroke, [...] 2b revascularization. INTERVAL HISTORY 08/05: Transfer [place] [facility] [place] 08/06: [...] as above -Rate controlled on metoprolol Dysphagia: -COMMUNICATIONS PROFESSOR following -NPO, DHT + TF -Failed MBS [...] Lindsay Acuna will likely be discharged to [facility] when medically ready Taran Traore APRN-DOUBLER OPERATOR 08/06/2024 1:43 PM VITAL SIGNS Temp: [...] for specific therapeutic recommendations, please see the animal handler report of the speech pathologist. Examination performed [...] Progress Note IDENTIFYING INFORMATION Lindsay Acuna MR# [id number] 08/05/2024 HISTORY OF PRESENT ILLNESS Lindsay Acuna is a 78 y.o. female with PMH significant for CAD, HTN, HLD, T2DM, Afib (on Eliquis, although patient reports she has not been taking it) who presents with L hemiplegia, slurred speech. LKW 0915 on 08/02, later found down with slurred speech and L hemiplegia. She presented to [facility] and was seen on Telestroke, [...] 2b revascularization. INTERVAL HISTORY 08/05: Transfer to [facility] tomorrow PHYSICAL EXAM Gen: awake, [...] as above -Rate controlled on metoprolol Dysphagia: -COMMUNICATIONS PROFESSOR following -NPO, DHT + TF -MBS tomorrow HLD, POA: -Atorvastatin 40 mg daily CAD, POA: -Hold ASA for 7 days due to ICH T2DM, POA: -SSI regular + accuchecks CKD Stage 3A, POA: Baseline Cr 1.3 -Avoid nephrotoxins, monitor Hypothyroidism, POA: -Continue home levothyroxine 75 mcg daily Disposition: Lindsay Acuna will likely be discharged to [facility] when medically ready Taran Traore APRN-DOUBLER OPERATOR 08/05/2024 2:19 PM VITAL SIGNS Temp: [...] on the below outcome measures/assessment score(s), and COMMUNICATIONS PROFESSOR clinical judgment, discharge destination recommendation is: Pending [...] Impaired cognitive skills limiting saf ety/insight Acute COMMUNICATIONS PROFESSOR Outcomes Tracking Communicate basic wants and needs?: [...] oropharyngeal swallow function to most appropriately guide COMMUNICATIONS PROFESSOR plan of care. Of note, patient is [...] Currentdeficits impact her safety and independence. Ongoing COMMUNICATIONS PROFESSOR services are warranted. Subjective information: Awake, alert, [...] O2 Device: room air (08/05 0830) Acute COMMUNICATIONS PROFESSOR Goals Plan of Care by Queta Gardner, COMMUNICATIONS PROFESSOR at 08/05/2024 11:49 AM Version 1 of [...] oropharyngeal swallow function to most appropriately guide COMMUNICATIONS PROFESSOR plan of care Outcome: Ongoing Problem: COMMUNICATIONS PROFESSOR - Cognition Goal: Orientation Log - Patient [...] better assess deficits and most appropriately guide COMMUNICATIONS PROFESSOR plan of care Outcome: Met Tx: Noted [...] Good candidate; [facility] COMMUNICATIONS PROFESSOR Outcomes: COMMUNICATIONS PROFESSOR Outcomes / Standardized Measures Score The Orientation [...] wrist restraints, RN aware Needs in reach. COMMUNICATIONS PROFESSOR Evaluation and Treatment Time Speech Therapy - Individual 39469: 8 Swallowing Dysfunction Treatment 95770: 9 Upon discontinuation of Acute Care Speech Therapy Services or patient discharge from the hospital this note represents the current Speech Therapy Discharge Summary * Chela Hannon - 08/05/2024 10:37 AM EDT Placement Plan Expected Discharge Date: TBD Referred Level of Care: IPR Barriers: medical stability, bed availability Current Referrals and Status 1. [facility]- sent; denied (Patient is OON) 2. [facility]- sent 3. [facility]- sent 4. [facility]- sent 5. [facility]- sent 6. [facility] RAW STOCK MACHINE LOADER met with Patient and Spouse at bedside to discuss discharge planning. Patient and spouse were agreeable to SW visit. RAW STOCK MACHINE LOADER discussed therapy recommendations with Spouse for Patient to go to [facility] at discharge. Spouse is agreeable to a referral being sent to [facility]. Referral sent. Spouse requested to speak to SW about assessing Patient for dementia. RAW STOCK MACHINE LOADER and bedside RN encouragedSpouse to discuss with Patient's outpatient provider. Chela Snyder, Social Work Student Available by Secure Chat Cosigned by OWEN Keller at 08/05/2024 11:22 AM EDT * Savana Leung, RD - 08/05/2024 10:10 AM EDT NUTRITION ASSESSMENT Nutrition Recommendations and Plan of Care: 1. Diet: NPO. Advancement per team/COMMUNICATIONS PROFESSOR recommendation 2. Ordered TF: Glucerna 1.5 @ [...] time. Per team, pt failed bedside swallow. COMMUNICATIONS PROFESSOR consulted for swallow eval. Past History No [...] lb) 06/26/24 78.9 kg (174 lb)-[facility] 05/31/24 79 kg (174 lb 2.6 oz)-[facility] 11/28/23 80.6 kg (177 lb 9.6 oz)-[facility] 09/29/23 84 kg (185 lb)-[facility] Pt without significant weight change NETWORK LIAISON. Tmax: 97.8*F BP: (!) 173/94 Pulse (Heart Rate): 98 Oxygen Therapy: room air Labs reviewed: Na/K+/Phos/Mg/Ca: 143/3.8/2.7/1.8/-- (08/05 26) Bun/Creat/Cl/CO2/Glucose: 35/1.45/108/25/242 (08/05 002) WBC/Hgb/Hct/Plts: 10.61/12.6/39.6/198 (08/05 002) Meds: Vital AF [...] proximal second portion of the duodenum. BM: NETWORK LIAISON Urine: 725mL Skin: Raghu Score: 13 Active Wounds: Wound Sheath Site 08/02/24 1500 Right Radial (3) Wound Abrasion 08/02/24 2109 Left;Upper Face (3) Edema- None Estimated Nutrition Needs: Based on IBW (61.4kg) Estimated Kcals Needs: 1374-0615 kcals (25-30kcals/kg) Estimated Pro Needs: 74-92g Pro (1.2-1.5g/kg) Estimated Fluid Needs: Per MD Nutrition Focused Physical Exam Completed?: completed Subcutaneous Fat Loss: Orbital Region (Orbital Fat Pads): WDL Cheek Region (Buccal Fat Pads): WDL Upper Arm Region (Triceps): WDL Thoracic and Lumbar Region (Ribs, Lower Back, Midaxillary Line): WDL Muscle Wasting: Cheondoism Region (Temporalis Muscle): deferred (lac over eyebrow) [...] (AAIM) criteria (2012) ELVIRA Ho, RD, LD, [facility] Pager: [phone] * Rashad Rg MD - 08/05/2024 9:42 AM EDT 78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 * Shanna Russ, JASIEL-DOUBLER OPERATOR - 08/05/2024 7:20 AM EDT NEUROCRITICAL [...] Visual richards intact to confrontation. PERRL. 3mm court specialist III, IV and : EOMI. No [...] aggressive pulm edema, OOB as toleratd - [id number], encourage pulmonary toileting Cards: Essential HTN HLD [...] Goal: euvolemia - Maintenance: none - remove marina Intake/Output Summary (Last 24 hours) at 08/05/2024 [...] TUBE FEEDING with meds (per DHT) - Gum Spring Swallow Screening Result: failed=NPO Bowel regimen: - Last Bowel Movement: (prior to admission) - Senna 17.2 mg Q12H, miralax BID, suppository PRN Stress ulcer prophylaxis: - none Dysphagia - DHT placed - COMMUNICATIONS PROFESSOR following; NPO continue following, on TF - [...] not indicated DVT: subcutaneous heparin [x] Lines Gilbert: n/a Marina: remove Rectal tube: n/a Enteral access: inserted [...] the assigned neurocritical care provider (resident, fellow, [employer], orPA) or page/call the corresponding number below NCC1 (Beds [phone]): [place] # [phone], pager #[phone] NCC2 (Beds 7348-9537, [address], and overflow): [place] #: [phone], pager #[phone] * Florinda Velasuqez, PT - 08/04/2024 1:36 PM EDT Acute [...] noted Mobility Assessment: Supine to Sit Mobility Harbinger Level: Supine->Sit: moderate assist (50% patient effort) [...] EOB Transfer Assessment: Sit to Stand Transfer Harbinger Level: Sit->Stand: moderate assist (50% patient effort) Physical Assist: Sit->Stand: 2 person assist Assistive Device: Sit->Stand: gait belt, hand held assist Skilled Rationale: Positioning, Sequencing, Hand placement, Verbal cues Skilled Intervention/Details: Sit->Stand: x 1 from EOB Bed-Chair Transfer Harbinger Level: Bed<->Chair: moderate assist (50% patient effort) Physical Assist: Bed<->Chair: 2 person assist Assistive Device: Bed<->Chair: gait belt, hand held assist Skilled Rationale: Positioning, Sequencing, Hand placement, Verbal cues Skilled Intervention/Details: Bed<->Chair: x 2-3 steps from bed to chair Gait/Functional Mobility: Stairs: Outcome Score(s): CURRENT [facility] Basic Mobility Inpatient Short Form Turning over [...] Total Assistance CURRENT [facility] Mobility Raw Score: 10 CURRENT [facility] Mobility Functional Limitation: 76.75% Impaired in Basic [...] Edema: Mobility Assessment: Supine to Sit Mobility Harbinger Level: Supine->Sit: moderate assist (50% patient effort) Physical Assist: Supine->Sit: 2 person assist Bed Features/Set-up: Supine->Sit: Head of bed elevated Skilled Rationale: Positioning, Hand placement, Verbal cues, Technique of activity Transfer Assessment: Sit to Stand Transfer Harbinger Level: Sit->Stand: moderate assist (50% patient effort) Physical Assist: Sit->Stand: 2 person assist Assistive Device: Sit->Stand: gait belt, hand held assist Skilled Rationale: Positioning, Hand placement, Verbal cues, Technique of activity Stand to Sit Transfer Harbinger Level: Stand->Sit: moderate assist (50% patient effort) Physical Assist: Stand->Sit: 2 person assist Assistive Device: Stand->Sit: hand held assist Skilled Rationale: Positioning, Hand placement, Verbal cues, Arm in arm, Controlled descent for sitting Bed-Chair Transfer Harbinger Level: Bed<->Chair: moderate assist (50% patient effort) Physical Assist: Bed<->Chair: 2 person assist Assistive Device: Bed<->Chair: gait belt, hand held assist Skilled Rationale: Arm in arm, Patellar block, Technique of activity Skilled Intervention/Details: Bed<->Chair: LLE weakness/blocking of patella with transfer, pivot to right Functional Mobility: Outcome Score(s): CURRENT -[facility] Daily Activity Inpatient Short Form Putting on/Taking Off Lower Body Clothin - A Lot of Assistance Bathin - A Lot of Assistance Toiletin - Total Assistance Putting on/Taking Off Upper Body Clothin - A Lot of Assistance Groomin - A Little Assistance Eatin - Total Assistance CURRENT [facility] Activity Raw Score: 11 CURRENT [facility] Activity Functional Limitation/Modifier: 70.42% Currently [...] assessment and plan as documented by the [employer] with my changes/additions added. Patient is a [...] ICH x 7 days - Statin - PT/OT/COMMUNICATIONS PROFESSOR evaluation Pulmonary: No acute issues, appears to [...] and other supportive care as per the [employer] note from the same day This patient [...] care services to the patient today [facility], teaching and other care providers. Management of the above was performed. My time managing this critically ill patient included review of interval history, laboratories, radiology and cons ultation reports; performing a physical examination; discussing the patient with the multi-disciplinary team and managing life sustaining therapies to prevent imminent clinical deterioration. Richard Mejia MD Neurocritical Care Attending * Blabir Hwang Nadine, GREENHOUSE MANAGER-DOUBLER OPERATOR - 08/04/2024 7:44 AM EDT NEUROCRITICAL [...] Visual richards intact to confrontation. PERRL. 3mm court specialist III, IV and : EOMI. No [...] SpO2 >92%; wean FiO2 as tolerated - [id number], encourage pulmonary toileting Cards: Essential HTN HLD [...] - trend Cr daily, strict I&O, keep marina for now given decreased UOP. - Daily [...] TUBE FEEDING with meds (per DHT) - Gum Spring Swallow Screening Result: failed=NPO Bowel regimen: - Last Bowel Movement: (prior to admission) - Senna 17.2 mg Q12H, miralax at bedtime Stress ulcer prophylaxis: - none Dysphagia - DHT placed - COMMUNICATIONS PROFESSOR following - Tube feed: Vital AF with [...] DVT: subcutaneous heparin [x] Lines Lesly: n/a Marina: inserted 08/02, (indication: strict I&O with concern for KELI) Rectal tube: n/a Enteral access: inserted 08/03, [ ] gastric; [x ] post-pyloric CENTRAL LINES: Central Line Indications: No line currently in place Can line/s be removed today? No line in place at this time Dressing/s Clean/Dry/Intact?: No line currently in place Discussed with NCCU Attending, Dr. Jackie Mccoy, GREENHOUSE MANAGER-DOUBLER OPERATOR 08/04/24 7:44 AM Check the treatment team to find the assigned neurocritical care provider (resident, fellow, [employer], orPA) or page/call the corresponding number below NCC1 (Beds 6787-8910): [place] # [phone], pager #[phone] NCC2 (Beds 8294-8278, [address], and overflow): [place] #: [phone], pager #[phone] * Rafael Garcia MD - 08/03/2024 2:16 PM EDT NEUROVASCULAR Consult Daily Progress Note IDENTIFYING INFORMATION Lindsay Acuna MR# [id number] 08/03/2024 HISTORY OF PRESENT ILLNESS Lindsay Acuna is a 78 y.o. female with PMH significant for CAD, HTN, HLD, T2DM, Afib (on Eliquis, although patient reports she has not been taking it) who presents with L hemiplegia, slurred speech. She was last seen normal by her at 0915, later found down with slurred speech and L hemiplegia. She presented to [facility] and was seen on Telestroke, [...] speech and L hemiplegia. She presented to [facility] and was seen on Telestroke, [...] workup. Delbert Kasper MD * Nohelia Oconnell, COMMUNICATIONS PROFESSOR - 08/03/2024 12:09 PM EDT Acute Care COMMUNICATIONS PROFESSOR Speech/Language/Cognitive Evaluation Best mode of Communication: spoken language (regular speech) Discharge Recommendations: Based on the below outcome measures/assessment score(s) and COMMUNICATIONS PROFESSOR clinicaljudgment, discharge destination recommendation is: (Skilled speech therapy services at next level of care) Barriers to discharge home: Cognitive impairments that impact safety and independence Supporting factors for discharge setting: Impaired swallow function limiting nutritional status andsafety with oral intake Acute COMMUNICATIONS PROFESSOR Outcomes Tracking Communicate basic wants and needs?: [...] speech and L hemiplegia. She presented to [facility] and was seen on Telestroke,NIHSS [...] 0 Asthenia (A): 0 Strain (S): 0 COMMUNICATIONS PROFESSOR Outcomes / Standardized Measures Score The Orientation [...] unable to respond. Total Score: 12 Acute COMMUNICATIONS PROFESSOR Goals Plan of Care by RIKI Hayes at 08/03/2024 11:25 AM Version 1 of 1 Problem: Dysphagia Goal: Ongoing Assessment - Patient will participate in ongoing assessment by accepting various PO consistency trials with appropriate participation/oral acceptance and no significant respiratory complications to determine readiness for diet advancement Outcome: Ongoing Problem: COMMUNICATIONS PROFESSOR - Cognition Goal: Orientation Log - Patient [...] better assess deficits and most appropriately guide COMMUNICATIONS PROFESSOR plan of care Outcome: Ongoing Speech Language [...] of session: bed alarm Needs in reach. COMMUNICATIONS PROFESSOR Evaluation and Treatment Time Speech Eval - Sound Production W/Lang Comp and Exp 45122: 11 Swallowing Eval 74052: 10 Upon discontinuation of Acute Care Speech [...] on the below outcome measures/assessment score(s) and COMMUNICATIONS PROFESSOR clinicaljudgment, discharge destination recommendation is: Deferred to PT/OT recomendations related to mobility Current therapy frequency recommendation in acute care: Swallow Therapy Frequency: 5 times a week Acute COMMUNICATIONS PROFESSOR Outcomes Tracking Communicate basic wants and needs?: [...] speech and L hemiplegia. She presented to [facility] and was seen on Telestroke,NIHSS [...] tiny 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 Prior COMMUNICATIONS PROFESSOR history: No prior speech history per chart [...] and Liquids Trialed Modality Amount Ice Teaspoon, COMMUNICATIONS PROFESSOR-fed 3x Thin Teaspoon 3x Oral Phase Function [...] Patient presents with presumed pharyngeal phase impairments. Gum Spring Swallow Screen: (administered by: RN) Gum Spring Swallow Screening Screening Exclusion Criteria: none, continue with Gum Spring Swallow Screening Cognitive Screen: Orientation: able to [...] Ok for ice chips with RN supervision. COMMUNICATIONS PROFESSOR will continue to follow for ongoing dysphagia management. Patient Education/Instruction Learners: Patient Education provided: Dysphagia recommendation risk: benefit analysis, Role of this discipline Teaching method: Verbal Education/Instruction Learner response: Needs review Learning preferences: Auditory Learning considerations: Cognition Plan for next session: 08/03: Good Prognosis, ongoing dysphagia management to determine readiness for diet advancement vs instrumental. Acute COMMUNICATIONS PROFESSOR Goals Plan of Care by RIKI Hayes at 08/03/2024 11:25 AM Version 1 of 1 Problem: Dysphagia Goal: Ongoing Assessment - Patient will participate in ongoing assessment by accepting various PO consistency trials with appropriate participation/oral acceptance and no significant respiratory complications to determine readiness for diet advancement Outcome: Ongoing Problem: COMMUNICATIONS PROFESSOR - Cognition Goal: Orientation Log - Patient [...] better assess deficits and most appropriately guide COMMUNICATIONS PROFESSOR plan of care Outcome: Ongoing Speech Language Pathologist: RIKI Hayes, BCS-S Board Certified Specialist in Swallowing and Swallowing Disorders Available via Trust Digital Chat Time In: 1130 Time Out: 1151 Total Visit Time: 21 minutes Total Treatment Time (skilled, billable minutes): 21 minutes Non-billable assistance during session: none Assisted by during session: Patient's PPE used during patient interaction: gloves Patient location/status at end of session: bed with head of bed elevated Patient alarms at end of session: bed alarm Needs in reach. COMMUNICATIONS PROFESSOR Evaluation and Treatment Time Speech Eval - Sound Production W/Lang Comp and Exp 58154: 11 Swallowing Eval 31618: 10 Upon discontinuation of Acute Care Speech Therapy Services or patient discharge from the hospital this note represents the current Speech Therapy Discharge Summary * Richard Mejia MD - 08/03/2024 10:30 AM EDT I have independently seen and examined the patient on 08/03/24. I agree with the history, examination, assessment and plan as documented by the STATE SUPER[employer]ENT [employer] with my changes/additions added. Patient is a [...] the setting of ICH - Statin - PT/OT/COMMUNICATIONS PROFESSOR evaluation Pulmonary: No acute issues, appears to [...] and other supportive care as per the [employer] note from the same day This patient [...] to the patient today independent offormerly providence healthcedures, teaching and other care providers. Management of [...] with assistance from spouse Care Management Plan RAW STOCK MACHINE LOADER met with Patient and Spouse at bedside to complete Initial Assessment. They were agreeable to SW visit. Patient was lethargic though able to answer some short questions. Patient consented to Spouse assisting with assessment. Spouse/Patient report that Patient has never completed a HCPOA. They expressed interest, and RAW STOCK MACHINE LOADER will follow to complete document when Patient is more alert and oriented. Spouse reports himself and Patient live in a ranch-style home with strong supports from their community, including 2 neighbors that have assisted at this time. He noted that himself and Patient recently returned from a visit to [facility] for their 50th anniversary. Spouse reports that their 2 children will be visiting soon. RAW STOCK MACHINE LOADER explained SW role and offered resources. Spouse [...] Name and Contact information: Ike Acuna P: [phone] Adult Child(jj), List All Adult Children: Yes Name and Contact information: Donnell Acuna P: [phone]; Nathen Acuna P: [phone] Would you like to add additional adult [...] for Advance Care Planning? : Patient Agreeable (RAW STOCK MACHINE LOADER to follow for HCPOA completion when Patient is more alert and oriented) Medication Management Does the patient have prescription insurance coverage? : Yes Is the patient on Anticoagulation? : Yes (Per chart review, Patient is on anticoagulation but has not been taking it (does not recall the last time she took a dose)) Provider or Clinic that manages Anticoagulation?: (unspecified at this time) [facility] [address] [place] [id number] - [phone] [address] Living Environment and Support System Is the patient from a facility or long-term?: No Living Environment: House ("1 bedroom ranch") Patient Caregiving Responsibilities: Self Patient-identified caregiver/support network: Family, Friends, Neighbors, Presybeterian Who does the patient identify as a [...] themselves at home? : Unable to assess Smash Piecer Does the patient or graphic art sales representative express financial concerns? : No Chela Snyder Social Work Student Available by Secure Chat Cosigned by OWEN Keller at 08/03/2024 11:20 AM EDT * Balbir Jaiden Mccoy, GREENHOUSE MANAGER-DOUBLER OPERATOR - 08/03/2024 7:40 AM EDT NEUROCRITICAL [...] Visual richards intact to confrontation. PERRL. 3mm court specialist III, IV and : EOMI. No [...] SpO2 >92%; wean FiO2 as tolerated - [id number], encourage pulmonary toileting Cards: Essential HTN HLD [...] - Bowel regimen: - Last Bowel Movement: (NETWORK LIAISON) - Senna, miralax Stress ulcer prophylaxis: - none Dysphagia - DHT placed - COMMUNICATIONS PROFESSOR following - Tube feed: Vital AF with [...] rationale: post thrombectomy [x] Lines Lesly: n/a Marina: inserted 08/02, (indication: strict I&O) Rectal tube: [...] the assigned neurocritical care provider (resident, fellow, STATE [employer], orPA) or page/call the corresponding number below NCC1 (Beds [phone]): [place] # [phone], pager #[phone] NCC2 (Beds 0900-5065, 12 Nando, and overflow): [place] #: [phone], pager #[phone] * Nando Caceres MD - 08/03/2024 6:00 [...] nccu Neurosurgery signing off Please page NS2 ([phone]) with questions Complexity. Hypocalcemia - Continue to [...] any questions, Name: Andreas Ga RPH Phone: [phone] Date/Time: 08/02/2024 10:57 PM * Richard Mejia MD - 08/02/2024 6:01 PM EDT I have independently seen and examined the patient on 08/02/24. I agree with the history, examination, assessment and plan as documented by the STATE [employer] with my changes/additions added. Patient is a [...] to determine stroke burden - Statin - PT/OT/COMMUNICATIONS PROFESSOR evaluation Pulmonary: No acute issues, appears to [...] stage 3a - Maintain euvolemia GI/Nutrition: - COMMUNICATIONS PROFESSOR evaluation - Bowel regimen to prevent constipation [...] and other supportive care as per the [employer] note from the same day This patient [...] MD Neurocritical Care Attending documented in this encounterUniversity [facility]als [facility]03-29-2025 Consult note* Niru Koch MD [...] today. Consent obtained by at bedside. - COMMUNICATIONS PROFESSOR eval: none - RD eval: none PAST [...] dependence ASSESSMENT/RECOMMENDATIONS: - primary team feels that half-way enteric nutrition is warranted in s/o CVA. Patient is appropriate for endoscopic PEG placement. Consent obtained from at bedside. - we will tentatively plan for EGD for PEG placement 08/09 as add on case. See pre procedure recommendations below. For PEG: - Ancef ordered (1 gm if patient is <80 kg; 2 gm if patient is >80 kg) as "ground transportation operator to the procedure"). - Please make [...] Hepatology, and Nutrition Clinical Fellow PGY-4 Pager: [phone] For urgent/stat calls 5pm to 7am or [...] and medical decisions as outlined. Need for superintendent terminal non-oral enteric nutrition per primary team. We will facilitate this with planned PEG tube placement. Before placement, non-GI management of TF should be established to avoid delays. David Woods M.D. 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 Prema Ramos M.D. Credit And Collections Representative Department of Neurosurgery [facility] * Taran Traore, GREENHOUSE MANAGER-DOUBLER OPERATOR - 08/02/2024 2:44 PM EDT Neurovascular [...] speech and L hemiplegia. She presented to [facility] and was seen on Telestroke, [...] Scales Flowsheet Row Most Recent Value Modified Viper Scale Score Premorbid (MRSS) 0 filed on [...] protrudes midline Motor: L hemiplegia Reflexes: Coordination: Eymgbv-iq-qfsc intact on the R, unable to test [...] telemetry -PT, OT, Speech and social work supervisor consults Other problems: Complexity. Any conditions listed below are present on admission unless otherwise specified. . This plan has been discussed with stroke attending Dr. Kasper and has been communicated to ED and NCCU teams. Taran Traore APRN-DOUBLER OPERATOR 08/02/2024 3:18 PM Cosigned by Delbert Kasper [...] speech and L hemiplegia. She presented to [facility] and was seen on Telestroke, [...] Delbert Kasper MD documented in this encounterOSU [facility]03-[facility] Procedure note* RIKI Gonzales - 08/06/2024 [...] the below outcome measures/assessment score(s), MBS, and COMMUNICATIONS PROFESSOR clinical judgment, discharge destination recommendation is: IP Rehab Facility. Patient demonstrates good candidacy for discharge to: IRF. Additional supporting factors include: Impaired swallow functionlimiting nutritional status and safety with oral intake. Acute COMMUNICATIONS PROFESSOR Outcomes Tracking Communicate basic wants and needs?: [...] speech and L hemiplegia. She presented to [facility] and was seen on Telestroke, [...] Thin Barium: teaspoon x2, straw x2 Varibar [place] Barium: straw x1 Varibar Thin Honey Barium: [...] recommend NPO and nonoral meds. Ongoing skilled COMMUNICATIONS PROFESSOR services indicated to address deficits and maximize [...] Therapeutic Interventions Met: yes, treatment indicated Acute COMMUNICATIONS PROFESSOR Goals Plan of Care by Tanja Hunter, COMMUNICATIONS PROFESSOR at 08/06/2024 9:33 AM Version 1 of 1 Problem: Dysphagia Goal: MBS - Patient will participate in Modified Barium Swallow (MBS) Study to objectively assess oropharyngeal swallow function to most appropriately guide COMMUNICATIONS PROFESSOR plan of care Outcome: Met Goal: Bolus [...] Treatment Time (skilled, billable minutes): 20 minutes COMMUNICATIONS PROFESSOR Evaluation and Treatment Time MBS/Motion Fluoroscopic Swallowing Eval 84596: 20 Speech Language Pathologist: RIKI Gonzales Time [...] end of session: none altered (RN present) COMMUNICATIONS PROFESSOR Evaluation and Treatment Time MBS/Motion Fluoroscopic Swallowing Eval 28126: 20 Upon discontinuation of Acute Care Speech Therapy Services or patient discharge from the hospital this note represents the current Speech Therapy Discharge Summary documented in this encounterUniversity Hospitals [facility]03-25-2025 Hospital Discharge instructions* Discharge Instructions* Jhoana Casarez GREENHOUSE MANAGER-DOUBLER OPERATOR - 08/06/2024 8:38 AM EDT Please [...] you at all times. Stroke Education: visit [email or web address] What are the most common symptoms of [...] all ordered medications [x] Avoid non-prescription or unsa-vtl-xeowuwq medication not cleared by your physician [x] [...] may call the neurovascular doctors office at [phone], if you have questions Mon-Fri between 8:30 am and 4:30 pm. - For off hours or the weekend you may call the office or the hospital blueprinting machine operator at and ask for the stroke resident ground transportation operator to be paged. - If you have any other questions or needs, please call Aniyah DOSS, RN, Stroke Nurse Navigator at [phone] Mon-Fri between 7:00am and 3:00pm. - Additional assistance may be found by reaching out to our Case Management Office at [phone]. *In the event of an Emergency: If you have a physical or psychiatric emergency call 911 or go to your local emergency department. You should also call your outpatient provider's emergency number. Other reference numbers: [facility] Intake Office at [phone]; [facility] at 478-021-0043; or Suicide Prevention Hotline at 341-711-3747. *Helpful phone numbers: Free Crisis Hotline: 6-877-292-TALK ( ) Suicide Hotline: 867.248.7823 Seniors Suicide Hotline: 834.781.1321 [facility] Youth: 734.877.6160 Mental Health of [place]: 673.734.9543 (free counseling) [facility] Access Hotline: 491-940-OXNR (438-483-8687) 24-hour crisis text hotline: Text the word "4hope" to 939-317 for crisis support. Texting this number is [...] Medicaid Applications over the phone. Please call 2-612-854-[place] (3481) and apply over the phone or apply online at www.benefits.[place].gov. Monday-Monday 8am-12pm noon. Medication Assistance Programs [employer] members can buy 100+ common prescriptions for FREE, $3 or $6. Annual membership is $36 for individuals and $72 for families (up to 6 people, including pets). Sign up online or enroll at your nearest pharmacy! Myows, web site can provide a significant number of coupons for medications at a much lower raymundo. [place] Department of Aging The Department of Aging administers programs and services to meet the needs of older [place]. Services and resources offered per county may include transportation, housekeeping, meals and nutrition, personal care, case management, safety monitoring, home medical equipment, legal services, financial assistance specialist, health and wellness, education, caregiver support, respite care, etc. Call to be connected to the [facility] agency on aging serving your community or visit [employer].[place].gov/find-services. Request a consultation with a community resource expert at ltssi.age.[place].gov/ [facility] Stroke Support The [facility] Stroke Support Group is for stroke survivors, friends, and family members. Meets on the Monday of each month from 6:30pm-7:30pm at [facility] ([address]; [place] [address]). Contact Chela Nolan, at [phone] or [email or web address]. If you are outside of the [place] area, contact The [place] Stroke Association at www.stroke.org or 8-538-0-STROKE or for support groups in your area. You may also refer to the Your Care after a Stroke education booklet at go.[email or web address] for additional resources. * Medications* PATRIZIA Miner - 08/06/2024 8:38 AM EDT Know your medicines Make sure you know why you are taking each medicine. Make a master list of all your medicines. Write down the medicine names and doctors' names. Includedoses and side effects too. And write down why you take each medicine. Include all prescription qqbegvm-kez-bokclbt medicines, vitamins, and supplements. Keep this list [...] plan your refills so that you can pickers material handlers all your medicines at the same time. [...] changed every 6 months. documented in this encounterUniversity Hospitals [facility]03-21-2025 History and physical note* PATRIZIA [...] Visual richards intact to confrontation. PERRL. 3mm court specialist III, IV and : EOMI. No [...] SpO2 >92%; wean FiO2 as tolerated - [id number], encourage pulmonary toileting Cards: Essential HTN HLD [...] prophylaxis - rationale: post thrombectomy [x] Lines Gilbert: n/a Marina: n/a Rectal tube: n/a Enteral access: inserted [...] the assigned neurocritical care provider (resident, fellow, STATE SUPER[employer]ENDENT [employer], orPA) or page/call the corresponding number below NCC1 (Beds 8441-6357): [place] # [phone], pager #[phone] NCC2 (Beds 6205-6802, 12 Nando, and overflow): [place] #: [phone], pager #[phone] Cosigned by Richard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 10/14/2021) [facility] History of Past illness Narrative* Problem Noted Date Resolved Date Hypertensive kidney disease with stage 3 chronic kidney disease 11/03/2020 11/05/2020 Diabetes mellitus with renal complications 05/0111/03/2020 PURE HYPERCHOLESTEROLEM 11/27/19 14 DIABETES MELLITUS TYPE II-UNCOMPL 11/26/2013 documented as of this encounter (statuses as of 11/23/2021) [facility] History of Past illness Narrative* Problem Noted Date Resolved Date Hypertensive kidney disease with stage 3 chronic kidney disease 11/03/2020 11/05/2020 Diabetes mellitus with renal complications 05/0111/03/2020 PURE HYPERCHOLESTEROLEM 11/27/19 14 DIABETES MELLITUS TYPE II-UNCOMPL 11/26/2013 documented as of this encounter (statuses as of 11/23/2021) [facility] of Past illness Narrative* Problem Noted Date Resolved Date Hypertensive kidney disease with stage 3 chronic kidney disease 11/03/2020 11/05/2020 Diabetes mellitus with renal complications 05/0111/03/2020 PURE HYPERCHOLESTEROLEM 11/27/19 14 DIABETES MELLITUS TYPE II-UNCOMPL 11/26/2013 documented as of this encounter (statuses as of 12/16/2021) [facility] of Past illness Narrative* Problem Noted Date Resolved Date Hypertensive kidney disease with stage 3 chronic kidney disease 11/03/2020 11/05/2020 Diabetes mellitus with renal complications 05/0111/03/2020 PURE HYPERCHOLESTEROLEM 11/27/19 14 DIABETES MELLITUS TYPE II-UNCOMPL 11/26/2013 documented as of this encounter (statuses as of 01/11/2022) [facility] of Past illness Narrative* Problem Noted Date Resolved Date Hypertensive kidney disease with stage 3 chronic kidney disease 11/03/2020 11/05/2020 Diabetes mellitus with renal complications 05/0111/03/2020 PURE HYPERCHOLESTEROLEM 11/27/19 14 DIABETES MELLITUS TYPE II-UNCOMPL 11/26/2013 documented as of this encounter (statuses as of 01/11/2022) [facility] of Past illness Narrative* Problem Noted Date Resolved Date Hypertensive kidney disease with stage 3 chronic kidney disease 11/03/2020 11/05/2020 Diabetes mellitus with renal complications 05/0111/03/2020 PURE HYPERCHOLESTEROLEM 11/27/19 14 DIABETES MELLITUS TYPE II-UNCOMPL 11/26/2013 documented as of this encounter (statuses as of 03/02/2022) [facility] of Past illness Narrative* Problem Noted Date Resolved Date Hypertensive kidney disease with stage 3 chronic kidney disease 11/03/2020 11/05/2020 Diabetes mellitus with renal complications 05/0111/03/2020 PURE HYPERCHOLESTEROLEM 11/27/19 14 DIABETES MELLITUS TYPE II-UNCOMPL 11/26/2013 documented as of this encounter (statuses as of 03/02/2022) [facility] of Past illness Narrative* Problem Noted Date Resolved Date Hypertensive kidney disease with stage 3 chronic kidney disease 11/03/2020 11/05/2020 Diabetes mellitus with renal complications 05/0111/03/2020 PURE HYPERCHOLESTEROLEM 11/27/19 14 DIABETES MELLITUS TYPE II-UNCOMPL 11/26/2013 documented as of this encounter (statuses as of 04/11/2022) [facility] of Past illness Narrative* Problem Noted Date Resolved Date Hypertensive kidney disease with stage 3 chronic kidney disease 11/03/2020 11/05/2020 Diabetes mellitus with renal complications 05/0111/03/2020 PURE HYPERCHOLESTEROLEM 11/27/19 14 DIABETES MELLITUS TYPE II-UNCOMPL 11/26/2013 documented as of this encounter (statuses as of 05/27/2022) [facility] of Past illness Narrative* Problem Noted Date Diagnosed Date Resolved Date Hypertensive kidney disease with stage 3 chronic kidney disease 11/03/2020 11/05/2020 Diabetes mellitus with renal complications 05/01/2014 11/03/2020 PURE HYPERCHOLESTEROLEM 07/09/2013 DIABETES MELLITUS TYPE II-UNCOMPL 11/26/2013 documented as of this encounter (statuses as of 11/25/2022) [facility] of Past illness Narrative* Problem Noted Date Diagnosed Date Resolved Date Hypertensive kidney disease with stage 3 chronic kidney disease 11/03/2020 11/05/2020 Diabetes mellitus with renal complications 05/01/2014 11/03/2020 PURE HYPERCHOLESTEROLEM 11/12 DIABETES MELLITUS TYPE II-UNCOMPL 11/26/2013 documented as of this encounter (statuses as of 04/08/2023) [facility] of Past illness Narrative* Problem Noted Date Diagnosed Date Resolved Date Hypertensive kidney disease with stage 3 chronic kidney disease 11/03/2020 11/05/2020 Diabetes mellitus with renal complications 05/01/2014 11/03/2020 PURE HYPERCHOLESTEROLEM 11/12 DIABETES MELLITUS TYPE II-UNCOMPL 11/26/2013 documented as of this encounter (statuses as of 04/08/2023) [facility] CenterDischarge summary Author [facility] Note Date/Time August 02, 2024 1:1 6pm [facility] Medical Records Department [address] [place] [address] Emergency Department Summary 08/02/24 MR#: [id number] Acct: [id number] Name: LINDSAY ACUNA Rep #:[id number] : [...] the EMR. states they returned home from [facility] about 1.5-2 weeks ago, and they both had colds. He is better, but she is "on round 2." [facility] Medical History Paroxysmal atrial fibrillation [...] TNK given that history. Spoke with Dr. Gibson with stroke neurology at 1255, who was [...] 71.4 H Lymph % (Auto) 17.9 L Mora % (Auto) 8.9 Eos % (Auto) 1.0 [...] at 1250 hours. Reading Location: [facility] Head/Neck CTA 08/02/24 12:24 IMPRESSION: RIGHT CAROTID: Mild degree of calcific plaque at the origin of the right internal carotid artery. LEFT CAROTID: Mild degree of calcific plaque at the origin of the left internal carotid artery. VERTEBRALS: Dominant left vertebral artery INTRACRANIAL: Unremarkable Other impression: No significant stenosis seen. Reading Location: [place] [address] Rhythm Strip Rhythm Strip: A-fib Rate: 90 Ectopy: None EKG Initial EKG: Attestation: I personally reviewed and interpreted this EKG as follows: Interpretation: No Acute Injury Pattern, Atrial Fibrillation and Non-Specific ST Changes Management Discussion w/another healthcare provider: Development Team Lead ([facility] stroke neurolog[facility]) and Radiologist Stroke [...] min), Including time spent:, Discussing w/Patient &/or Family/Circuit Breaker Supervisor, Discussing w/Consultants, Arranging Admission or Transfer and [...] MD [Primary Care Provider] - Print Language: Algerian Disposition Disposition: Acute Care Hospital Discharge Location: [facility] What to do if you have Problems For any increased pain, shortness of breath, bleeding, nausea or vomiting, chestpain, or any unexpected problems, contact your Primary Care Provider. Call [facility] ([phone]) or report to the closest Emergency Room. Call 911 if necessary. 08/02/24 1316 <Electronically signed by Pieter Morgan MD> Cosigner Signature (if applicable): CC: Dr. Kameron Caruso MD ~ Signed [facility] Work Phone: Evaluation note* Diagnosis Need for vaccination- Primary Need for prophylactic vaccination and inoculation against unspecified single disease [facility] [place] [facility] Diagnosis Type 2 diabetes mellitus with diabetic chronic kidney disease, unspecified CKD stage, unspecified whether superintendent terminal insulin use (HCC)- Primary Essential hypertension, benign Hyperlipidemia, unspecified hyperlipidemia type Stage 3b chronic kidney disease (HCC) Hypothyroidism, unspecified type Memory loss documented [facility] this [facility] [place] [facility]* Diagnosis Type 2 diabetes mellitus with diabetic chronic kidney disease, unspecified CKD stage, unspecified whether superintendent terminal insulin use (HCC)- Primary documented [facility] [place] [facility]* Diagnosis Hyperlipidemia, unspecified hyperlipidemia type Essential hypertension, benign Type 2 diabetes mellitus with diabetic chronic kidney disease, unspecified CKD stage, unspecified whether superintendent terminal insulin use (HCC) [facility] [place] [facility] Diagnosis Type 2 diabetes mellitus with diabetic chronic kidney disease, unspecified CKD stage, unspecified whether superintendent terminal insulin use (HCC) Essential hypertension, benign Hyperlipidemia, unspecified hyperlipidemia type documented [facility] [place] [facility]* Diagnosis Acute midline low back pain without sciatica- Primary documented [facility] [place] [facility]* Diagnosis Type 2 diabetes mellitus with diabetic chronic kidney disease, unspecified CKD stage, unspecified whether half-way insulin use (HCC)- Primary [facility] [place] [facility]* Diagnosis Essential hypertension, benign- Primary Hypothyroidism, unspecified type Type 2 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, without long-term current use of insulin (HCC) Hyperlipidemia, unspecified hyperlipidemia type Chronic kidney disease, stage 3a (HCC) Edema of left lower leg Wellness examination documented in this encounter [facility] [place] [facility]* Diagnosis Type 2 diabetes mellitus with diabetic chronic kidney disease, unspecified CKD stage, unspecified whether half-way insulin use (HCC) documented [facility] [place] [facility]* Diagnosis Allergic contact dermatitis due to plant- Primary Contact dermatitis and other eczema due to plants (except food) documented in this encounter [facility] [place] [facility]* Diagnosis Rash- Primary Rash and other nonspecific skin eruption documented in this encounter [facility] [place] [facility]* Diagnosis Type 2 diabetes mellitus with diabetic chronic kidney disease, unspecified CKD stage, unspecified whether half-way insulin use (HCC)- Primary Essential hypertension, benign [...] [facility] noteNo assessment information availableWWexner Medical Center Work Phone: Evaluation note* Diagnosis Acute ischemic right MCA stroke- Primary Unspecified cerebral artery occlusion with cerebral infarction Cerebrovascular accident (CVA), unspecified mechanism Renal disease (High Serum Creatinine) Unspecified disorder of kidney and ureter Type 2 diabetes mellitus with hyperglycemia Type II or unspecified type diabetes mellitus without mention of complication, not stated as uncontrolled [facility] N[facility] No data available for this section Ashley Garcia Reason for referral (narrative)* Outpatient Procedure (Routine) - Pending Review Specialty Diagnoses / Procedures Referred By Contac t Referred To Contact [facility] [place] Diagnoses Atrial fibrillation, unspecified type (HCC) Procedures ECHO ECHO TTHRC R-T 2D W/WOM-MODE COMPL SPEC&COLR D Kameron Caruso MD [address] [place] [address] [facility] [address] [address] Referral ID Status Reason Start Date Expiration Date Visits Requested Visits Authorized [id number] Pending Review Auto-Generat ed Referral 05/31/2024 05/31/2025 1 1 * Outpatient Procedure (Routine) - New Request Specialty Diagnoses / Procedures Referred By Contac t Referred To Contact [facility] [place] Diagnoses Irregular heart beat Procedures ECG COMPLETE ECG ROUTINE ECG W/LEAST 12 LDS W/I&R Kameron Caruso MD [address] [place] [address] [facility] [address] [place] [address] Referral ID Status Reason Start Date Expiration Date Visits Requested Visits Authorized [id number] New Request Auto-Generat ed Referral 05/31/2024 05/31/2025 1 1 [facility] (narrative)No reason for referral information availableWWexner Medical Center Work Phone: Reason for visit Narrative* Auth/Cert Specialty Diagnoses / Procedures Referred By Contac t Referred To Contact Diagnoses Acute ischemic right MCA stroke Cerebrovascular Accident (Level A Ishemic Stroke) Prema Rodgers MD [address] [place] [address] Phone: tel: fax: [facility] [address] [place] [address] Referral ID Status Reason Start Date Expiration Date Visits Re quested Visits Authorized [id number] 1 1 [facility] Summary Purpose Family History No Family History Records Found Relationship Condition Age at Onset Recorded Date/T monse mother Diabetes mellitus Unknown Hypertension Unknown Psychiatric disorder Unknown grandmother Malignant neoplasm Unknown sister Disorder of thyroid Unknown Advance Directives No Advanced Directives Records FoundDocuments on File Type Date Recorded Patient Laboratory [employer] 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 Advance Directives and Living Will Power of Metal Burrer Latest Code Status on File Code Status Date Activated Date Inactivated Comments Full Code 01/09/2019 10:16 AM Latest Code Status on File Code Status Date Activated Date Inactivated Comments Full Code 10/16/2019 9:16 AM Full Code 01/09/2019 10:16 AM 01/09/2019 2:23 PM Documents on File Type Date Recorded Patient Laboratory [employer] 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 Advance Directive(s) 11/07/2018 6:45 AM Advance Directive(s) 09/29/2015 10:09 PM Advance Directive Response Recorded Date/ Time Living Will No August 02, 2024 12:46pm Do you have a Healthcare Power of Metal Burrer? No August 02, 2024 12:46pm Date Activated [...] patient had a polyp identified by on {time:84976}. Biopsies {are/were w not:9034} taken. The patient's usual bowel pattern is {bowel pattern:10736}. Bowel movements {bowel changes:32767} . {abd pain:93588}. The patient has noted{bleeding with BM:82788}. The patient {does/do/not:38230} have a family history of colon polyps. The patient {does/do/not:68736} have a family history of colon cancer. [...] encounter History of Present Illness * Santiago Rendon MD - 10/16/2019 9:30 AM EDT No [...] October 01, 2024 5:00a m AFIB ([facility]) October 02, 2024 9:29a m LAB [...] October 01, 2024 5:00a m AFIB ([facility]) October 02, 2024 9:29a m LAB [...] October 01, 2024 5:00a m AFIB ([facility]) October 02, 2024 9:29a m LAB [...] October 01, 2024 5:00a m AFIB ([facility]) October 02, 2024 9:29a m LAB [...] 6:00 pm LONG TERM LAB WORK November 05, 2024 5: 00am LONG TERM LAB WORK November 12, 2024 5:0 0am LONG TERM LAB WORK November 19, 2024 4:0 0am New Concern November 20, 2024 10:49 am LABWORK November 25, 2024 2:00 am LONG TERM LAB WORK November 26, 2024 5: 20am New Concern November 28, 2024 4:43 pm LONG TERM LAB WORK December 03, 2024 5: 00am [...] 6:00 pm LONG TERM LAB WORK November 05, 2024 5: 00am LONG TERM LAB WORK November 12, 2024 5:0 0am LONG TERM LAB WORK November 19, 2024 4:0 0am New Concern November 20, 2024 10:49 am LABWORK November 25, 2024 2:00 am LONG TERM LAB WORK November 26, 2024 5: 20am LONG TERM LAB WORK December 03, 2024 5: 00am [...] 6:00 pm LONG TERM LAB WORK November 05, 2024 5: 00am LONG TERM LAB WORK November 12, 2024 5:0 0am LONG TERM LAB WORK November 19, 2024 4:0 0am New Concern November 20, 2024 10:49 am LABWORK November 25, 2024 2:00 am LONG TERM LAB WORK November 26, 2024 5: 20am New Concern November 28, 2024 4:43 pm LONG TERM LAB WORK December 03, 2024 5: 00am LONG TERM LAB WORK December 10, 2024 6: 20am LONG TERM LAB WORK December 17, 2024 5 :00am LONG TERM LAB WORK December 24, 2024 5:00am LONG TERM LAB WORK December 31, 2024 4:00am MONTHLY EXAM December 31, 2024 12 :07pm Chief Complaint Admit Date LONG TERM LAB WORK October 22, 2024 5: 00am NEW CONCERN October 22, 2024 12:4 5pm LONG TERM LAB WORK October 23, 2024 5: 00am LONG TERM LAB WORK October 29, 2024 5: 00am FU VISIT October 29, 2024 7:15 pm NEW CONCERN October 30, 2024 6:00 pm LONG TERM LAB WORK November 05, 2024 5: 00am LONG TERM LAB WORK November 12, 2024 5:0 0am LONG TERM LAB WORK November 19, 2024 4:0 0am New Concern November 20, 2024 10:49 am LABWORK November 25, 2024 2:00 am LONG TERM LAB WORK November 26, 2024 5: 20am New Concern November 28, 2024 4:43 pm LONG TERM LAB WORK December 03, 2024 5: 00am LONG TERM LAB WORK December 10, 2024 6: 20am LONG TERM LAB WORK December 17, 2024 5 :00am LONG TERM LAB WORK December 24, 2024 5:00am LONG TERM LAB WORK December 31, 2024 4:00am MONTHLY EXAM December 31, 2024 12 :07pm LONG TERM LAB WORK January 07, 2025 4:00am LONG TERM LAB WORK January 14 4:00am LABWORK January 21, 2025 5:00am LONG TERM LAB WORK January 28 5:00am LONG TERM LAB WORK February 04 5:07am Chief Complaint Admit Date LONG TERM LAB WORK November 12, 2024 5:0 0am LONG TERM LAB WORK November 19, 2024 4:0 0am New Concern November 20, 2024 10:49 am LABWORK November 25, 2024 2:00 am LONG TERM LAB WORK November 26, 2024 5: 20am New Concern November 28, 2024 4:43 pm LONG TERM LAB WORK December 03, 2024 5: 00am LONG TERM LAB WORK December 10, 2024 6: 20am LONG TERM LAB WORK December 17, 2024 5 :00am LONG TERM LAB WORK December 24, 2024 5:00am LONG TERM LAB WORK December 31, 2024 4:00am MONTHLY EXAM December 31, 2024 12 :07pm LONG TERM LAB WORK January 07, 2025 4:00am LONG TERM LAB WORK January 14 4:00am LABWORK January 21, 2025 5:00am LONG TERM LAB WORK January 28 5:00am LONG TERM LAB WORK February 04 5:07am LONG TERM LAB WORK February 11 6:03am LONG TERM LAB WORK February 25, 2025 4:07am Additional Source Comments INFORMATION SOURCE (unrecogn ized section and content) DATE CREATED AUTHOR 08/31/2018 [facility] ([place]) DATE CREATED AUTHOR AUTHOR'S ORGANIZ ATION 10/18/2019 [facility] DATE CREATED AUTHOR AUTHOR'S ORGANIZ ATION 08/04/2024 [facility] DATE CREATED AUTHOR AUTHOR'S ORGANIZ ATION 08/07/2024 [facility] DATE CREATED AUTHOR AUTHOR'S ORGANIZ ATION 09/01/2024 [facility] DATE CREATED AUTHOR AUTHOR'S ORGANIZ ATION 11/08/2024 [facility] DATE CREATED AUTHOR AUTHOR'S ORGANIZ ATION 02/17/2025 [facility] DATE CREATED AUTHOR AUTHOR'S ANGELICA IRVIN 03/24/2025 [facility] Source Comments (unrecognize d section and content) In the event this informatio n is protected by the Federal Confidentiality of Alcohol and Drug Abuse Patient Records regulations: The Federal rules restrict any use of the information to criminally investigate or prosecute any alcohol or drug abuse patient.[facility] CenterIn the event this information is protected by the Federal Confidentiality of Alcohol and Drug Abuse Patient Records regulations: The Federal rules restrict any use of the information to criminally investigate or prosecute any alcohol or drug abuse patient.[facility] CenterIn the event this information is protected by the Federal Confidentiality of Alcohol and Drug Abuse Patient Records regulations: The Federal rules restrict any use of the information to criminally investigate or prosecute any alcohol or drug abuse patient.[facility] CenterIn the event this information is protected by the Federal Confidentiality of Alcohol and Drug Abuse Patient Records regulations: The Federal rules restrict any use of the information to criminally investigate or prosecute any alcohol or drug abuse patient.[facility] CenterIn the event this information is protected by the Federal Confidentiality of Alcohol and Drug Abuse Patient Records regulations: The Federal rules restrict any use of the information to criminally investigate or prosecute any alcohol or drug abuse patient.[facility] CenterIn the event this information is protected by the Federal Confidentiality of Alcohol and Drug Abuse Patient Records regulations: The Federal rules restrict any use of the information to criminally investigate or prosecute any alcohol or drug abuse patient.[facility] CenterIn the event this information is protected by the Federal Confidentiality of Alcohol and Drug Abuse Patient Records regulations: The Federal rules restrict any use of the information to criminally investigate or prosecute any alcohol or drug abuse patient.[facility] CenterIn the event this information is protected by the Federal Confidentiality of Alcohol and Drug Abuse Patient Records regulations: The Federal rules restrict any use of the information to criminally investigate or prosecute any alcohol or drug abuse patient.[facility] CenterIn the event this information is protected by the Federal Confidentiality of Alcohol and Drug Abuse Patient Records regulations: The Federal rules restrict any use of the information to criminally investigate or prosecute any alcohol or drug abuse patient.[facility] CenterIn the event this information is protected by the Federal Confidentiality of Alcohol and Drug Abuse Patient Records regulations: The Federal rules restrict any use of the information to criminally investigate or prosecute any alcohol or drug abuse patient.[facility] CenterIn the event this information is protected by the Federal Confidentiality of Alcohol and Drug Abuse Patient Records regulations: The Federal rules restrict any use of the information to criminally investigate or prosecute any alcohol or drug abuse patient.[facility] CenterIn the event this information is protected by the Federal Confidentiality of Alcohol and Drug Abuse Patient Records regulations: The Federal rules restrict any use of the information to criminally investigate or prosecute any alcohol or drug abuse patient.[facility] CenterIn the event this information is protected by the Federal Confidentiality of Alcohol and Drug Abuse Patient Records regulations: The Federal rules restrict any use of the information to criminally investigate or prosecute any alcohol or drug abuse patient.[facility] CenterIn the event this information is protected by the Federal Confidentiality of Alcohol and Drug Abuse Patient Records regulations: The Federal rules restrict any use of the information to criminally investigate or prosecute any alcohol or drug abuse patient.[facility] CenterIn the event this information is protected by the Federal Confidentiality of Alcohol and Drug Abuse Patient Records regulations: The Federal rules restrict any use of the information to criminally investigate or prosecute any alcohol or drug abuse patient.[facility] CenterIn the event this information is protected by the Federal Confidentiality of Alcohol and Drug Abuse Patient Records regulations: The Federal rules restrict any use of the information to criminally investigate or prosecute any alcohol or drug abuse patient.[facility] CenterIn the event this information is protected by the Federal Confidentiality of Alcohol and Drug Abuse Patient Records regulations: The Federal rules restrict any use of the information to criminally investigate or prosecute any alcohol or drug abuse patient.[facility] CenterIn the event this information is protected by the Federal Confidentiality of Alcohol and Drug Abuse Patient Records regulations: The Federal rules restrict any use of the information to criminally investigate or prosecute any alcohol or drug abuse patient.[facility] CenterIn the event this information is protected by the Federal Confidentiality of Alcohol and Drug Abuse Patient Records regulations: The Federal rules restrict any use of the information to criminally investigate or prosecute any alcohol or drug abuse patient.[facility] CenterIn the event this information is protected by the Federal Confidentiality of Alcohol and Drug Abuse Patient Records regulations: The Federal rules restrict any use of the information to criminally investigate or prosecute any alcohol or drug abuse patient.[facility] CenterIn the event this information is protected by the Federal Confidentiality of Alcohol and Drug Abuse Patient Records regulations: The Federal rules restrict any use of the information to criminally investigate or prosecute any alcohol or drug abuse patient.[facility] CenterIn the event this information is protected by the Federal Confidentiality of Alcohol and Drug Abuse Patient Records regulations: The Federal rules restrict any use of the information to criminally investigate or prosecute any alcohol or drug abuse patient.[facility] CenterIn the event this information is protected by the Federal Confidentiality of Alcohol and Drug Abuse Patient Records regulations: The Federal rules restrict any use of the information to criminally investigate or prosecute any alcohol or drug abuse patient.[facility] CenterIn the event this information is protected by the Federal Confidentiality of Alcohol and Drug Abuse Patient Records regulations: The Federal rules restrict any use of the information to criminally investigate or prosecute any alcohol or drug abuse patient.[facility] CenterIn the event this information is protected by the Federal Confidentiality of Alcohol and Drug Abuse Patient Records regulations: The Federal rules restrict any use of the information to criminally investigate or prosecute any alcohol or drug abuse patient.[facility] CenterIn the event this information is protected by the Federal Confidentiality of Alcohol and Drug Abuse Patient Records regulations: The Federal rules restrict any use of the information to criminally investigate or prosecute any alcohol or drug abuse patient.[facility] CenterIn the event this information is protected by the Federal Confidentiality of Alcohol and Drug Abuse Patient Records regulations: The Federal rules restrict any use of the information to criminally investigate or prosecute any alcohol or drug abuse patient.[facility] CenterIn the event this information is protected by the Federal Confidentiality of Alcohol and Drug Abuse Patient Records regulations: The Federal rules restrict any use of the information to criminally investigate or prosecute any alcohol or drug abuse patient.[facility] Reason for Visit (unrecogniz ed [...] Comments request for medication Reason Comments [facility] requesting verbal agree to f ollow Care Teams (unrecognized sec tion and content) Conservation Officer Relationship Specialty Start Date End Date Kameron Caruso MD [address] [place] [address] PCP - General Family Practice 09/21/15 Conservation Officer Relationship Specialty Start Date End Date Kameron Caruso MD [address] [place] [address] PCP - General Family Practice 09/21/15 Conservation Officer Relationship Specialty Start Date End Date Kameron Caruso MD [address] [place] [address] PCP - General Family Practice 09/21/15 Conservation Officer Relationship Specialty Start Date End Date Kameron Caruso MD [address] [place] [address] PCP - General Family Practice 09/21/15 Conservation Officer Relationship Specialty Start Date End Date Kameron Caruso MD [address] [facility] [place] [address] PCP - General Family Practice 09/21/15 Conservation Officer Relationship Specialty Start Date End Date Kameron Caruso MD [address] [facility] [place] [address] PCP - General Family Practice 09/21/15 Conservation Officer Relationship Specialty Start Date End Date Kameron Caruso MD [address] [facility] [place] [address] PCP - General Family Medicine 09/21/15 Conservation Officer Relationship Specialty Start Date End Date Kameron Caruso MD [address] [facility] [place] [address] PCP - General Family Medicine 09/21/15 Conservation Officer Relationship Specialty Start Date End Date Kameron Caruso MD [address] [facility] [place] [address] PCP - General Family Medicine 09/21/15 Conservation Officer Relationship Specialty Start Date End Date Kameron Caruso MD [address] [place] [address] PCP - General Family Medicine 09/21/15 Conservation Officer Relationship Specialty Start Date End Date Kameron Caruso MD [address] [facility] [place] [address] PCP - General Family Medicine 09/21/15 Conservation Officer Relationship Specialty Start Date End Date Kameron Caruso MD [address] [facility] [place] [address] PCP - General Family Medicine 09/21/15 Conservation Officer Relationship Specialty Start Date End Date Kameron Caruso MD [address] [facility] [place] [address] PCP - General Family Medicine 09/21/15 Conservation Officer Relationship Specialty Start Date End Date Kameron Caruso MD [address] [place] [address] PCP - General Family Medicine 09/21/15 Conservation Officer Relationship Specialty Start Date End Date Kameron Caruso MD [address] [facility] [place] [address] PCP - General Family Medicine 09/21/15 Conservation Officer Relationship Specialty Start Date End Date Kameron Caruso MD [address] [facility] [place] [address] PCP - General Family Medicine 09/21/15 Emma Glasgow, GREENHOUSE MANAGER.DOUBLER OPERATOR [address] [facility] [place] [address] [employer] Family Medicine 04/21/24 Mj Glover APRN.DOUBLER OPERATOR [address] [facility] [place] [address] [employer] Family [facility] 04/30/24 Conservation Officer Relationship Specialty Start Date End Date Kameron Caruso MD [address] [place] [address] PCP - General Family Medicine 09/21/15 Emma Glasgow APRN.DOUBLER OPERATOR [address] [place] [address] [employer] Family [facility] 04/21/24 Mj Glover APRN.DOUBLER OPERATOR [address] [place] [address] [employer] [facility] 04/30/24 Conservation Officer Relationship Specialty Start Date End Date Kameron Caruso MD [address] [place] [address] PCP - General Family Medicine 09/21/15 Emma Glasgow APRN.DOUBLER OPERATOR [address] [place] [address] [employer] Family [facility] 04/21/24 Mj Glover APRN.DOUBLER OPERATOR [address] [place] [address] [employer] Family [facility] 04/30/24 Conservation Officer Relationship Specialty Start Date End Date Kameron Caruso MD [address] [place] [address] PCP - General Family Medicine 09/21/15 Emma Glasgow APRN.DOUBLER OPERATOR [address] [place] [address] [employer] [facility] 04/21/24 Mj Glover APRN.DOUBLER OPERATOR [address] [place] [address] [employer] [facility] 04/30/24 Conservation Officer Relationship Specialty Start Date End Date Kameron Caruso MD [address] [place] [address] PCP - General Family Medicine 09/21/15 Emma Glasgow APRN.DOUBLER OPERATOR [address] [place] [address] [employer] [facility] 04/21/24 Mj Glover APRN.DOUBLER OPERATOR [address] [place] [address] [facility] [facility] Conservation Officer Relationship Specialty Start Date End Date Kameron Caruso MD [address] [place] [address] PCP - General Family Medicine 09/21/15 Emma Glasgow APRN.DOUBLER OPERATOR [address] [place] [address] [employer] [facility] 04/21/24 Mj Glover APRN.DOUBLER OPERATOR [address] [place] [address] [employer] [facility] 04/30/24 Conservation Officer Relationship Specialty Start Date End Date Kameron Caruso MD [address] [place] [address] PCP - General Family Medicine 09/21/15 Emma Glasgow APRN.DOUBLER OPERATOR [address] [place] [address] [employer] Family [facility] 04/21/24 Mj Glover GREENHOUSE MANAGER.DOUBLER OPERATOR [address] [facility] [place] [address] [employer] [facility] 04/[facility]24 Team Status: Active Member Role Status Dates Dr. Kameron Caruso MD Primary Care Provider Active Team Status: Inactive Member Role Status Dates Dr. Kameron Caruso MD Primary Care Provider Active Start: August 02, 2024 End: August 02, 2024 Dr. Pieter Morgan MD Emergency Provider Active Start: August 02, 2024 End: August 02, 2024 Conservation Officer Relationship Specialty Start Date End Date Kameron Caruso MD [address] [facility] [place] [address] PCP - General Family Medicine 08/03/24 Conservation Officer Relationship Specialty Start Date End Date Kameron Caruso MD [address] [facility] [place] [address] PCP - General Family Medicine 09/21/15 Emma Glasgow GREENHOUSE MANAGER.DOUBLER OPERATOR [address] [facility] [place] [address] [facility] 04/21/24 Mj Glover, GREENHOUSE MANAGER.DOUBLER OPERATOR [address] [facility] [place] [address] [facility] 04/30/24 Team Status: Inactive Member Role [...] Status: Active Member Role/Relationship Status Dates Dr. Kaemron Caruso MD Primary Care Provider Active Team [...] 2024 End: September 11, 2024 Bret Snyder [employer], [employer] Attending Provider Active Start: September 11, 2024 [...] 2024 End: October 09, 2024 Bret Snyder [employer] Attending Provider Active Start: October 09, 2024 [...] 30, 2024 End: October 30, 2024 Bret Tickton [employer], [employer] Attending Provider Active Start: October 30, 2024 [...] End: October 22, 2024 Bret Snyder NP, [employer] Attending Provider Active Start: October 22, 2024 [...] 2024 End: October 30, 2024 Bret Snyder [employer], [employer] Attending Provider Active Start: October 30, 2024 [...] 2024 End: October 30, 2024 Bret Snyder [employer], [employer] Attending Provider Active Start: October 30, 2024 [...] End: September 11, 2024 Bret Snyder NP, [employer] Attending Provider Active Start: September 11, 2024 [...] Attending Provider Active Start: September 29, 2024 aSfia VARGAS MD Referring Provider Active Start: September [...] 2024 End: October 09, 2024 Bret Snyder [employer], [employer] Attending Provider Active Start: October 09, 2024 [...] 2024 End: October 22, 2024 Bret Snyder [employer], [employer] Attending Provider Active Start: October 22, 2024 [...] 2024 End: November 20, 2024 Bret Snyder [employer], [employer] Attending Provider Active Start: November 20, 2024 [...] End: November 28, 2024 Bret Snyder NP, [employer] Attending Provider Active Start: November 28, 2024 [...] Provider Active Start: December 17, 2024 Safia VARAGS MD Attending Provider Active Start: December 17, [...] 2024 End: October 22, 2024 Bret Snyder [employer], [employer] Attending physician Active Start: October 22, 2024 [...] End: October 30, 2024 Bret Snyder NP, [employer] Attending physician Active Start: October 30, 2024 [...] Attending physician Active Start: November 19, 2024 Safai VARGAS MD Referring Provider Active Start: November 19, 2024 Team Status: Inactive Member Role/Relationship Status Dates Dr. Kameron Caruso MD Primary care physician Active Start: November 20, 2024 End: November 20, 2024 Bret Snyder NP [employer] Attending physician Active Start: November 20, 2024 [...] 2024 End: November 28, 2024 Bret Snyder [employer], [employer] Attending physician Active Start: November 28, 2024 [...] Attending physician Active Start: January 14, 2025 Saifa VARGAS MD Referring Provider Active Start: January [...] Inactive Member Role/Relationship Status Dates Dr. Kameron Caurso MD Primary care physician Active Start: November 20, 2024 End: November 20, 2024 Bret Snyder NP [employer] Attending physician Active Start: November 20, 2024 [...] End: November 28, 2024 Bret Snyder NP [employer] Attending physician Active Start: November 28, 2024 [...] Status: Active Member Role/Relationship Status Dates Dr. Kaemron Caruso MD Primary care physician Active Start: [...] Indications: Atrial Fibrillation 1946 (Given - Provider: Sahila Eng RN) 848 (Given - Provider: Eneida [...] 100 (Given - Provider: Eneida Cespedes RN) 09 [...] glucose is greater than 200mg/dl, then notify yard warehouse worker. And BLOOD GLUCOSE (POC DEVICE) (CANCELED) Routine, [...] at 1301, Until Specified, Who to Notify: Research Director, For all Blood Glucose LESS THAN 80 mg/dl, notify Research Director after treatment per Hypoglycemia in Non- [...] BE BASED ON THE PRIMARY CLINICAL RECORDS. [facility]. provides no warranty or guarantee of the accuracy or completeness of information in this document.
[2025-03-25 07:31] LABS: Hematocrit 34.2 % (37-47); Hemoglobin 11.1 g/dL (12.0-15.0); Immature Granulocytes Count 0.030 X10^3/uL (0.0-0.0); Mean Corp Hgb Conc 32.5 g/dL (32-36); Mean Corpuscular Volume 91.9 fL (81-99); Mean Platelet Vol. 12.0 fl (6.2-12.0); NRBC Flagged by Analyzer 0 % (0-5); Platelet Count 257 K/mm3 (150-450); RBC Distribution Width CV 13.9 % (11.6-14.6); RBC Distribution Width SD 46.6 fl (35.1-43.9); Red Blood Count 3.72 M/mm3 (4.2-5.4); White Blood Count 9.4 K/mm3 (4.4-11.0)
[2025-03-25 07:44] LABS: Anion Gap 12 (5-15); BUN 17 mg/dL (4-19); BUN/Creat Ratio 23.1 RATIO (10-20); Calcium,Total 9.2 mg/dL (7.6-11.0); Carbon Dioxide 25.3 mmol/L (21.0-32.0); Chloride 101 mmol/L (98-108); Glucose 141 mg/dL (70-99); Potassium 3.4 mmol/L (3.3-5.1)
== END ==
LOC: OLS.WHLTCC 05:00
PROVIDERS: PCP Family Medicine; Visit Provider Internal Medicine
DX: E11.9 Type 2 diabetes mellitus without complications (principal); I10 Essential (primary) hypertension; I69.354 Hemiplegia and hemiparesis following cerebral infarction affecting left non-dominant side; I69.391 Dysphagia following cerebral infarction
CPT/HCPCS: 36415; 80048; 85025

== ENCOUNTER → 2025-04-01 04:00 | Outpatient (REF) | payer MEDICARE, SELFPAY ==
[2025-04-01 07:42] LABS: Hematocrit 38.2 % (37-47); Hemoglobin 12.2 g/dL (12.0-15.0); Immature Granulocytes Count 0.090 X10^3/uL (0.0-0.0); Mean Corp Hgb Conc 31.9 g/dL (32-36); Mean Corpuscular Volume 94.3 fL (81-99); Mean Platelet Vol. 11.3 fl (6.2-12.0); NRBC Flagged by Analyzer 0 % (0-5); Platelet Count 326 K/mm3 (150-450); RBC Distribution Width CV 13.7 % (11.6-14.6); RBC Distribution Width SD 47.0 fl (35.1-43.9); Red Blood Count 4.05 M/mm3 (4.2-5.4); White Blood Count 8.6 K/mm3 (4.4-11.0)
[2025-04-01 07:58] LABS: Anion Gap 12 (5-15); BUN 17 mg/dL (4-19); BUN/Creat Ratio 20.3 RATIO (10-20); Calcium,Total 9.4 mg/dL (7.6-11.0); Carbon Dioxide 27.1 mmol/L (21.0-32.0); Chloride 104 mmol/L (98-108); Glucose 124 mg/dL (70-99); Potassium 3.9 mmol/L (3.3-5.1)
== END ==
LOC: OLS.WHLTCC 04:00
PROVIDERS: PCP Family Medicine; Referring Provider Internal Medicine; Visit Provider Internal Medicine
DX: E11.9 Type 2 diabetes mellitus without complications (principal); I10 Essential (primary) hypertension
CPT/HCPCS: 36415; 80048; 85025

== ENCOUNTER → 2025-04-08 | Outpatient (REF) | payer MEDICARE, SELFPAY ==
--- OUTSIDE RECORDS SUMMARY | 2025-04-08 03:44 | XMS RPT_ITS ---
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 instructed twice daily. Rinse around mouth for 30 seconds then expectorate blood sugar diagnostic (Tumotorizado.comTOUCH ULTRA TEST STRIP) test strip Use to test sugars 1 times per day. Dx: E11.29. Insulin: No Betamethasone Dipropionate 0.05 % lotion Apply 1 application to affected area twice daily. ONE TOUCH GLUCOSE CONTROL SOLN use as directed. No current facility-administered medications on file prior to visit. Social History Social History Tobacco Use Smoking stat (more content not included)... Normal [facility] Comprehensive metabolic 2000 panelon 11-27-2023 Albumin [Mass/Vol] 4.1 g/dL Normal 3.9-4.9 [facility] Comment on above: Order Comment: Speci men Type: BLOOD SPECIMENOrdering Facility: [facility] Address: [address] [place] [address] Performed By: #### 3 016-3, 23752-0, 13107-3 ####[facility] LABCLIA [id number] [place] [address] [place] ALP [Catalytic activity/Vol] 86 U/L Normal 34-123 [facility] Comment on above: Order Comment: Speci men Type: BLOOD SPECIMENOrdering Facility: [facility] Address: [address] [place] [address] Performed By: #### 3 016-3, 84550-2, 30319-4 ####[facility] LABCLIA [id number] [place] [address] [place] ALT [Catalytic activity/Vol] 13 U/L Normal 7-38 [facility] Comment on above: Order Comment: Speci men Type: BLOOD SPECIMENOrdering Facility: [facility] Address: [address] [place] [address] Performed By: #### 3 016-3, 58716-2, 19974-9 ####[facility] LABCLIA [id number] [place] [address] [place] Anion gap [Moles/Vol] 10 mmol/L Normal 8-15 [facility] Comment on above: Order Comment: Speci men Type: BLOOD SPECIMENOrdering Facility: [facility] Address: [address] [place] [address] Performed By: #### 3 016-3, , ####[facility] LABCLIA [id number] [place] [address] [place] AST [Catalytic activity/Vol] 21 U/L Normal 13-35 [facility] Comment on above: Order Comment: Speci men Type: BLOOD SPECIMENOrdering Facility: [facility] Address: [address] [place] [address] Performed By: #### 3 016-3, , ####[facility] LABCLIA [id number] [place] [address] [place] Bilirubin [Mass/Vol] 0.5 mg/dL Normal 0.2-1.3 [facility] Comment on above: Order Comment: Speci men Type: BLOOD SPECIMENOrdering Facility: [facility] Address: [address] [place] [address] Performed By: #### 3 016-3, , ####[facility] LABCLIA [id number] [place] [address] [place] Calcium [Mass/Vol] 9.7 mg/dL Normal 8.5-10.2 [facility] Comment on above: Order Comment: Speci men Type: BLOOD SPECIMENOrdering Facility: [facility] Address: [address] [place] [address] Performed By: #### 3 016-3, , ####[facility] LABCLIA [id number] [place] [address] [place] Chloride [Moles/Vol] 108 mmol/L High 98-107 [facility] Comment on above: Order Comment: Speci men Type: BLOOD SPECIMENOrdering Facility: [facility] Address: [address] [place] [address] Performed By: #### 3 016-3, 70711-4, 11909-5 ####[facility] LABCLIA [id number] [place] [address] [place] CO2 [Moles/Vol] 23 mmol/L Normal 22-30 [facility] Comment on above: Order Comment: Speci men Type: BLOOD SPECIMENOrdering Facility: [facility] Address: [address] [place] [address] Performed By: #### 3 016-3, 13803-7, 98946-8 ####[facility] LABCLIA [id number] [place] [address] [place] Creatinine [Mass/Vol] 1.37 mg/dL High 0.58-0.96 [facility] Comment on above: Order Comment: Speci men Type: BLOOD SPECIMENOrdering Facility: [facility] Address: [address] [place] [address] Performed By: #### 3 016-3, 92159-0, 44521-0 ####[facility] LABIA [id number] [address] [place] Creatinine and Glomerular filtration rate.predicted panel (S/P/Bld) 39 mL/min/1.73m??? Low >=60 [facility] Comment on above: Order Comment: Speci men Type: BLOOD SPECIMENOrdering Facility: [facility] Address: [address] [place] [address] Result Comment: Nancy mated Glomerular Filtration Rate [...] actual GFR. Performed By: #### 3 016-3, 80444-9, 66476-9 ####[facility] LABCLIA [id number] [place] [address] [place] Glucose [Mass/Vol] 77 mg/dL Normal 74-99 [facility] Comment on above: Order Comment: Speci men Type: BLOOD SPECIMENOrdering Facility: [facility] Address: [address] [place] [address] Result Comment: The [place] Diabetes Association (ADA) [...] 2016.39(Suppl 1). Performed By: #### 3 016-3, 28438-3, 41236-5 ####[facility] LABIA [id number] [place] [address] [place] Potassium [Moles/Vol] 4.4 mmol/L Normal 3.7-5.1 [facility] Comment on above: Order Comment: Speci men Type: BLOOD SPECIMENOrdering Facility: [facility] Address: [address] [place] [address] Performed By: #### 3 016-3, 21361-9, 12256-5 ####[facility] LABIA [id number] [place] [address] [place] Protein [Mass/Vol] 6.6 g/dL Normal 6.3-8.0 [facility] Comment on above: Order Comment: Speci men Type: BLOOD SPECIMENOrdering Facility: [facility] Address: [address] [place] [address] Performed By: #### 3 016-3, 74954-0, 02695-2 ####[facility] LABCLIA [id number] [place] [address] [place] Sodium [Moles/Vol] 141 mmol/L Normal 136-144 [facility] Comment on above: Order Comment: Speci men Type: BLOOD SPECIMENOrdering Facility: [facility] Address: [address] [place] [address] Performed By: #### 3 016-3, 95901-4, 60816-3 ####[facility] LABIA [id number] [place] [address] [place] Urea nitrogen [Mass/Vol] 21 mg/dL Normal 7-21 [facility] Comment on above: Order Comment: Speci men Type: BLOOD SPECIMENOrdering Facility: [facility] Address: [address] [place] [address] Performed By: #### 3 016-3, 74465-5, 85643-3 ####[facility] [id number] [place] [address] [place] HbA1c (Bld)on 11-27-2023 Average glucose Estimated from glycated hemoglobin (Bld) [Mass/Vol] 166 mg/dL Normal [facility] Comment on above: Order Comment: Speci men Type: BLOOD SPECIMENOrdering Facility: [facility] Address: [address] [place] [address] Result Comment: eAG: (Estimated average glucose) is a calculated value from HgbA1c and is quality assurance representative of the average blood glucose level in the last 2-3 month period. Performed By: #### 5 5454-3 ####[facility] [id number] [place] [address] [place] HbA1c (Bld) [Mass fraction] 7.4 % High 4.3-5.6 [facility] Comment on above: Order Comment: Speci men Type: BLOOD SPECIMENOrdering Facility: [facility] Address: [address] [place] [address] Result Comment: Amer ican Diabetes Association guidelines indicate that patients with HgbA1c in the range 5.7-6.4% are at increased risk for development of diabetes, and intervention by lifestyle modification may be beneficial. HgbA1c greater or equal to 6.5% is considered diagnostic of diabetes. Performed By: #### 5 5454-3 ####[facility] LABCLIA [id number] [place] [address] [place] Lipid 1996 panelon 4 Cholesterol [Mass/Vol] 156 mg/dL Normal <200 [facility] Comment on above: Order Comment: Speci men Type: BLOOD SPECIMENOrdering Facility: [facility] Address: [address] [place] [address] Result Comment: <200 mg/dL, Desirable 200-239 mg/dL, Borderline high >239 mg/dL, High Performed By: #### 3 016-3, 71497-5, 53757-6 ####[facility] LABCLIA [id number] [address] [place] Cholesterol in HDL [Mass/Vol] 41 mg/dL Normal >39 [facility] Comment on above: Order Comment: Nici men Type: BLOOD SPECIMENOrdering Facility: [facility] Address: [address] [place] [address] Result Comment: 40-5 9 mg/dL, Acceptable >59 mg/dL, High: Negative risk factor for coronary heart disease <40 mg/dL, Low: Positive risk factor for coronary heart disease Performed By: #### 3 016-3, 93574-7, 91601-4 ####[facility] LABCLIA [id number] [place] [address] [place] Cholesterol in LDL [Mass/Vol] 85 mg/dL Normal <100 [facility] Comment on above: Order Comment: Speci men Type: BLOOD SPECIMENOrdering Facility: [facility] Address: [address] [place] [address] Result Comment: <100 mg/dL, Optimal 100-129 mg/dL, Near optimal/above optimal 130-159 mg/dL, Borderline high 160-189 mg/dL, High >189 mg/dL, Very high Secondary prevention optimal LDL Cholesterol levels are recommended to be < 70 mg/dL Performed By: #### 3 016-3, 56662-2, 17196-6 ####[facility] LABCLIA [id number] [place] [address] [place] Cholesterol in LDL/Cholesterol in HDL [Mass ratio] 2.07 {ratio} Normal <2.54 [facility] Comment on above: Order Comment: Speci men Type: BLOOD SPECIMENOrdering Facility: [facility] Address: [address] [place] [address] Result Comment: Refe jjce: 1. National Cholesterol Education Program ATP III Guideline At-A-Glance Quick Desk Reference: National Heart, Lung, and Blood [place]. National Institutes of Health. 2001: NIH Publication No. 01-3305. 2. An International Atherosclerosis Society position paper: global recommendations for the management of dyslipidemia: executive summary, Atherosclerosis. 2014: 232(2):410-413. Performed By: #### 3 016-3, 75923-9, 54087-9 ####[facility] LABIA [id number] [place] [address] [place] Cholesterol in VLDL [Mass/Vol] 30 mg/dL High <30 [facility] Comment on above: Order Comment: Speci men Type: BLOOD SPECIMENOrdering Facility: [facility] Address: [address] [place] [address] Performed By: #### 3 016-3, 72874-2, 93232-1 ####[facility] LABCLIA [id number] [place] [id number] [place] Cholesterol non HDL [Mass/Vol] 115 mg/dL Normal <130 [facility] Comment on above: Order Comment: Speci men Type: BLOOD SPECIMENOrdering Facility: [facility] Address: [address] [place] [address] Result Comment: <130 mg/dL, Optimal 130-159 mg/dL, Near optimal/above optimal 160-189 mg/dL, Borderline high 190-219 mg/dL, High >219 mg/dL, Very high Secondary prevention optimal non HDL Cholesterol levels are recommended to be <100 mg/dL Performed By: #### 3 016-3, 85823-5, 48773-1 ####[facility] LABCLIA [id number] [place] [address] [place] Cholesterol.total/Alta sterol in HDL [Mass ratio] 3.80 {ratio} Normal <5.10 [facility] Comment on above: Order Comment: Speci men Type: BLOOD SPECIMENOrdering Facility: [facility] Address: [address] [place] [address] Performed By: #### 3 016-3, , ####[facility] LABCLIA [id number] [address] [place] [facility] FASTING TIME 12 hrs Normal [facility] Comment on above: Order Comment: Speci men Type: BLOOD SPECIMENOrdering Facility: [facility] Address: [address] [place] [address] Performed By: #### 3 016-3, , ####[facility] LABCLIA [id number] [address] [place] Triglyceride [Mass/Vol] 148 mg/dL Normal <150 [facility] Comment on above: Order Comment: Speci men Type: BLOOD SPECIMENOrdering Facility: [facility] Address: [address] [place] [address] Result Comment: <150 mg/dL, Normal 150-199 mg/dL, Borderline high 200-499 mg/dL, High >499 mg/dL, Very high Performed By: #### 3 016-3, 83710-2, ####[facility] LABCLIA [id number] [place] [address] [place] TSH SerPl-aCncon 11-27-2023 TSH Qn 1.870 m[IU]/L Normal 0.270-4.200 [facility] Comment on above: Order Comment: Speci men Type: BLOOD SPECIMENOrdering Facility: [facility] Address: [address] [place] [address] Performed By: #### 3 016-3, 61871-4, 10256-7 ####[facility] LABCLIA [id number] [place] RODRIGUEZDESK [id number] [place] CNOVon 10-10-2023 CNOV Office Visit (UCWSTR ) LINDSAY ACUNA ([id number]) 1945 F Date Time Provider Department 10/10/23 7:30 AM DAVID DUPREE [facility] During your visit today, we recorded the following information about you: Temperature Pulse Respiration Blood pressure 97.5 degrees 58/minute 18/minute 128/82 Weight 82.1 kg David Dupree APRN.PER DIEM REGISTERED NURSE 10/10/2023 8:11 AM Signed Subjective HPI Nontoxic-appearing [...] Rate and (more content not included)... 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 Denies fever or chills Denies malaise or fatigue Denies new lotions, soaps, or medicines States that she was working out in the garden the same day the rash erupted. The history is provided by the patient. No senior ui web developer was used. Rash This is a new [...] mouth daily before breakfast. blood sugar diagnostic ([employer] ULTRA TEST) test strip Test Blood Sugar [...] 1 tablet by mouth once daily. lancets (Tumotorizado.comTOUCH DELICA PLUS LANCET) 30 gauge Test blood sugars 1 time daily. Dx: Type 2 DM Controlled E11.9. Insulin: no Chlorhexidine Gluconate (PERIDEX) 0.12 % solution Use 15 mL as instructed twice daily. Rinse around mouth for 30 seconds then expectorate blood sugar diagnostic (Tumotorizado.comTOUCH ULTRA TEST STRIP) test strip Use to [...] state. Hematologi (more content not included)... Normal [facility] Glucose,Bedsideon 04-16-2019 Glucose [Mass/Vol] 161 mg/dL High 70-100 [facility] Comment on above: Result Comment: Test performed by glucose meter. Results may be 10%-15% lower than serum/plasma values. (CLIA ID [id number]) Performed By: #### B GLU #### [facility] [employer] [facility] [address] [place] [address] Surgical Pathologyon 019 Surgical Pathology [id number] [facility] PATHOLOGY AND LABORATORY MEDICINE [address] [place], [place] [id number] FINAL SURGICAL PATHOLOGY REPORT ___ NAME: LINDSAY ACUNA : 1945 73 Y F BILLING NO.: [id number] LOCATION: 1XEO PROCEDURE 01/09/2019 DATE: SURGEON: HAILEY JOSE M.D. RECEIVED 01/09/2019 DATE: ATTENDING: HAILEY JOSE M.D. REPORT DATE: 01/10/2019 COPIES TO: [...] characteristics determined by the clinical laboratories of [facility]. They have not been cleared by [...] negativity on decalcified specimens. Professional Performing Location: [address] [address]. DEPARTMENT OF PATHOLOGY AND LABORATORY MEDICINE [place], [place] [address] Normal [facility] .Auto Diffon 08-22-2018 Ammonia mass conc (P) 1.10 10 3/mcL High 0.15-1.00 [facility] ([place]) Comment on above: Performed By: #### B MP, GFR #### [address] [address] Basophils #/vol (Bld) 0.00 10 3/mcL Normal 0.00-0.19 [facility] ([place]) Comment on above: Performed By: #### B MP, GFR #### [address] [address] Basophils/100 WBC (Bld) 0.3 % Normal 0.0-2.5 A [facility] ([place]) Comment on above: Performed By: #### B MP, GFR #### [address] [address] Eosinophils #/vol (Bld) 0.00 10 3/mcL Normal 0.00-0.40 [facility] ([place]) Comment on above: Performed By: #### Roby MP, GFR #### [address] [address] Eosinophils/100 WBC (Bld) 0.2 % Normal 0.0-7.0 [facility] ([place]) Comment on above: Performed By: #### Roby MP, GFR #### [address] [address] Lymphocytes #/vol (Bld) 2.20 10 3/mcL Normal 0.77-3.85 [facility] ([place]) Comment on above: Performed By: #### Roby MP, GFR #### [address] [address] Lymphocytes/100 WBC (Bld) 20.5 % Normal 10.0-50.0 [facility] ([place]) Comment on above: Performed By: #### B MP, GFR #### [address] [address] Monocytes/100 WBC (Bld) 10.5 % Normal 1.7-13.0 A [facility] ([place]) Comment on above: Performed By: #### Roby MP, GFR #### [address] [address] Neutrophils/100 WBC (Bld) 68.5 % Normal 37.0-80.0 [facility] ([place]) Comment on above: Performed By: #### B MP, GFR #### [address] [address] .GFRon 08-22-2018 GFR Non- 33 ml/min/1.73sqm Normal [facility] ([place]) Comment on above: Result Comment: GFR Population [...] Performed By: #### B MP, GFR #### [place] [address] #### DORY LOPEZ, ANEU #### [place] [address] [address] GFR 40 ml/min/1.73sqm Normal [facility] ([place]) Comment on above: Result Comment: GFR Population [...] Performed By: #### B MP, GFR #### [address] [address] #### JOHN, ADIFF, ANEU #### [place] [address] [address] .NEUABSon 08-22-2018 Neutrophils #/vol (Bld) 7.40 10 3/mcL High 2.85-6.16 [facility] ([place]) Comment on above: Performed By: #### B MP, GFR #### [place] [address] BMPon 08-22-2018 Calcium mass conc 8.3 mg/dL Low 8.4-10.2 [facility] ([place]) Comment on above: Performed By: #### B MP, GFR #### [place] [address] #### CBC, ADIFF, ANEU #### [place] [address] Chloride molar conc 104 mmol/L Normal 98-107 [facility] ([place]) Comment on above: Performed By: #### B MP, GFR #### [place] [address] #### CBC, ADIFF, ANEU #### [place] [address] CO2 molar conc 25 mmol/L Normal 23-31 [facility] ([place]) Comment on above: Performed By: #### Roby MP, GFR #### [place] [address] #### CBC, ADIFF, ANEU #### [address] [address] Creatinine mass conc 1.53 mg/dL High 0.55-1.02 [facility] ([place]) Comment on above: Performed By: #### B MP, GFR #### [place] [address] #### CBC, ADIFF, ANEU #### [place] [address]767 Electrolyte Balance 10.0 mEq/L Normal [facility] ([place]) Comment on above: Performed By: #### B MP, GFR #### [place] [address] #### CBC, ADIFF, ANEU #### [address] [address] Glucose mass conc 149 mg/dL High 83-110 [facility] ([place]) Comment on above: Performed By: #### B MP, GFR #### [address] [address] #### CBC, ADIFF, ANEU #### [address] [address] Potassium molar conc 4.3 mmol/L Normal 3.5-5.1 [facility] ([place]) Comment on above: Performed By: #### B MP, GFR #### [address] [address] #### CBC, ADIFF, ANEU #### [address] [address] Sodium molar conc 139 mmol/L Normal 136-145 [facility] ([place]) Comment on above: Performed By: #### B MP, GFR #### [place] [address] #### CBC, ADIFF, ANEU #### [address] [address] Urea nitrogen mass conc 32 mg/dL High 7-18 A [facility] ([place]) Comment on above: Performed By: #### B MP, GFR #### [address] [address] #### CBC, ADIFF, ANEU #### [address] [address] Urea nitrogen/Creatinine mass ratio 21 ratio Normal 7-27 [facility] ([place]) Comment on above: Performed By: #### B MP, GFR #### [address] [address] #### CBC, ADIFF, ANEU #### [address] [address] CBCon 08-22-2018 Erythrocyte distribution width Ratio (RBC) 12.6 % Normal 11.5-14.5 [facility] ([place]) Comment on above: Performed By: #### B MP, GFR #### [place] [address] Hematocrit Volume Fraction (Bld) 27.5 % Low 37.0-47.0 [facility] ([place]) Comment on above: Performed By: #### B MP, GFR #### [place] [address] Hemoglobin mass conc (Bld) 9.2 G/dL Low 12.0-16.0 [facility] ([place]) Comment on above: Performed By: #### B MP, GFR #### [place] [address] MCH Entitic mass (RBC) 30.1 pg Normal 27.0-31.2 [facility] ([place]) Comment on above: Performed By: #### B MP, GFR #### [place] [address] MCHC mass conc (RBC) 33.5 G/dL Normal 33.0-37.0 [facility] ([place]) Comment on above: Performed By: #### B MP, GFR #### [place] [address] MCV Entitic volume (RBC) 89.8 fL Normal 80.0-94.0 [facility] ([place]) Comment on above: Performed By: #### B NICOLLE, GFR #### [place] [address] Platelet mean volume Entitic volume (Bld) 9.3 fL Normal 7.4-10.4 [facility] ([place]) Comment on above: Performed By: #### B MP, GFR #### [place] [address] Platelets #/vol (Bld) 224 10 3/mcL Normal 130-400 A [facility] ([place]) Comment on above: Performed By: #### B MP, GFR #### [place] [id number] RBC #/vol (Bld) 3.06 10 6/mcL Low 4.20-5.40 [facility] ([place]) Comment on above: Performed By: #### B MP, GFR #### [address] [address] WBC #/vol (Bld) 10.80 10 3/mcL Normal 4.60-10.80 [facility] ([place]) Comment on above: Performed By: #### B MP, GFR #### [address] [address] XR KNEE 1 OR 2 VIEWS RIGHTon [...] AM Sign Date: 08/21/2018 9:55:37 AM Normal [facility] ([place]) CT KNEE W/O CONTRAST RIGHTon 08-09-2018 CT [...] PM Sign Date: 08/09/2018 5:04:12 PM Normal [facility] ([place]) .Auto Diffon 08-06-2018 Ammonia mass conc (P) 0.80 10 3/mcL Normal 0.15-1.00 [facility] ([place]) Comment on above: Performed By: #### C DORY SMITH, ANEU #### [place] [address] #### A1C #### [address] [address] Basophils #/vol (Bld) 0.10 10 3/mcL Normal 0.00-0.19 [facility] ([place]) Comment on above: Performed By: #### C DORY SMITH, ANEU #### [place] [address] #### A1C #### [address] [address] Basophils/100 WBC (Bld) 0.6 % Normal 0.0-2.5 A [facility] ([place]) Comment on above: Performed By: #### C DORY SMITH, ANEU #### [place] [address] #### A1C #### [address] [address] Eosinophils #/vol (Bld) 0.20 10 3/mcL Normal 0.00-0.40 [facility] ([place]) Comment on above: Performed By: #### C DORY SMITH, ANEU #### [place] [address] #### A1C #### [address] [address] Eosinophils/100 WBC (Bld) 1.7 % Normal 0.0-7.0 [facility] ([place]) Comment on above: Performed By: #### C DORY SMITH, ANEU #### [place] [address] #### A1C #### [address] [address] Lymphocytes #/vol (Bld) 1.90 10 3/mcL Normal 0.77-3.85 [facility] ([place]) Comment on above: Performed By: #### C BC, ADIFF, ANEU #### [address] [address] #### A1C #### [facility] [address] [place] [address] Lymphocytes/100 WBC (Bld) 20.8 % Normal 10.0-50.0 [facility] ([place]) Comment on above: Performed By: #### C BC ADIFF, ANEU #### [address] [address] #### A1C #### [address] [address] Monocytes/100 WBC (Bld) 9.3 % Normal 1.7-13.0 A [facility] ([place]) Comment on above: Performed By: #### C BC ADIFF, ANEU #### [address] [address] #### A1C #### [address] [address] Neutrophils/100 WBC (Bld) 67.6 % Normal 37.0-80.0 [facility] ([place]) Comment on above: Performed By: #### C DORY SMITH, ANEU #### [address] [address] #### A1C #### [address] [address] .GFRon 08-06-2018 GFR 51 ml/min/1.73sqm Normal [facility] ([place]) Comment on above: Result Comment: GFR [...] Performed By: #### B MP, GFR #### [place] [address] GFR Non- 42 ml/min/1.73sqm Normal [facility] ([place]) Comment on above: Result Comment: GFR Population [...] Performed By: #### B MP, GFR #### [place] [address] .NEUABSon 08-06-2018 Neutrophils #/vol (Bld) 6.20 10 3/mcL High 2.85-6.16 [facility] ([place]) Comment on above: Performed By: #### C DORY SMITH, ANEU #### [address] [address] #### A1C #### [place] [address] A1Con 08-06-2018 Hemoglobin A1c/Hemoglobin.total mass fraction (Bld) 7.9 % High 4.5-6.2 [facility] ([place]) Comment on above: Performed By: #### C DORY SMITH, ANEU #### [address] [address] #### A1C #### [place] [address] BMPon 08-06-2018 Calcium mass conc 9.2 mg/dL Normal 8.4-10.2 [facility] ([place]) Comment on above: Performed By: #### B MP, GFR #### [address] [address] Chloride molar conc 105 mmol/L Normal 98-107 [facility] ([place]) Comment on above: Performed By: #### B MP, GFR #### [address] [address] CO2 molar conc 27 mmol/L Normal 23-31 [facility] ([place]) Comment on above: Performed By: #### B MP, GFR #### [address] [address] Creatinine mass conc 1.25 mg/dL High 0.55-1.02 [facility] ([place]) Comment on above: Performed By: #### B MP, GFR #### [place] [id number] Electrolyte Balance 11.0 mEq/L Normal [facility] ([place]) Comment on above: Performed By: #### B MP, GFR #### [place] [address] Glucose mass conc 70 mg/dL Low 83-110 [facility] ([place]) Comment on above: Performed By: #### B MP, GFR #### [place] [address] Potassium molar conc 5.0 mmol/L Normal 3.5-5.1 [facility] ([place]) Comment on above: Performed By: #### B MP, GFR #### [place] [id number] Sodium molar conc 143 mmol/L Normal 136-145 [facility] ([place]) Comment on above: Performed By: #### B MP, GFR #### [address] [address] Urea nitrogen mass conc 26 mg/dL High 7-18 A [facility] ([place]) Comment on above: Performed By: #### B MP, GFR #### [place] [id number] Urea nitrogen/Creatinine mass ratio 21 ratio Normal 7-27 [facility] ([place]) Comment on above: Performed By: #### B MP, GFR #### [address] [address] CBCon 08-06-2018 Erythrocyte distribution width Ratio (RBC) 12.2 % Normal 11.5-14.5 [facility] ([place]) Comment on above: Performed By: #### C DORY SMITH, ANEU #### [address] [address] #### A1C #### [place] [address] Hematocrit Volume Fraction (Bld) 34.6 % Low 37.0-47.0 [facility] ([place]) Comment on above: Performed By: #### C DORY SMITH, ANEU #### [address] [address] #### A1C #### [place] [address] Hemoglobin mass conc (Bld) 11.7 G/dL Low 12.0-16.0 [facility] ([place]) Comment on above: Performed By: #### C DORY SMITH, ANEU #### [address] [address] #### A1C #### [place] [address] MCH Entitic mass (RBC) 30.6 pg Normal 27.0-31.2 [facility] ([place]) Comment on above: Performed By: #### C DORY SMITH, ANEU #### [place] [address] #### A1C #### [place] [address] MCHC mass conc (RBC) 33.7 G/dL Normal 33.0-37.0 [facility] ([place]) Comment on above: Performed By: #### C DORY SMITH, ANEU #### [place] [address] #### A1C #### [place] [address] MCV Entitic volume (RBC) 90.9 fL Normal 80.0-94.0 [facility] ([place]) Comment on above: Performed By: #### C BC ADIFF, ANEU #### [address] [address] #### A1C #### [address] [address] Platelet mean volume Entitic volume (Bld) 8.8 fL Normal 7.4-10.4 [facility] ([place]) Comment on above: Performed By: #### C BC, ADIFF, ANEU #### [address] [address] #### A1C #### [address] [address] Platelets #/vol (Bld) 355 10 3/mcL Normal 130-400 A [facility] ([place]) Comment on above: Performed By: #### C BC ADIFF, ANEU #### [place] [id number] #### A1C #### [place] [address] RBC #/vol (Bld) 3.81 10 6/mcL Low 4.20-5.40 [facility] ([place]) Comment on above: Performed By: #### C BC ADIFF, ANEU #### [address] [address] #### A1C #### [address] [address] WBC #/vol (Bld) 9.20 10 3/mcL Normal 4.60-10.80 [facility] ([place]) Comment on above: Performed By: #### C BC, ADIFF, ANEU #### [address] [address] #### A1C #### [address] [address] Vital Signs Date Time Vital Sign Value Performing Clinician Facility 10-02-2024 09:21-0400 Body height 167.[address] Kameron Caruso MD Work Phone: [facility] 10-02-2024 09:21-0400 Diastolic blood pressure 71 mm[Hg] Dr. Kameron Caruso MD Work Phone: [facility] 10-02-2024 09:21-0400 Heart rate 77 /min Dr. Kameron Caruso MD Work Phone: [facility] 10-02-2024 09:21-0400 Respiratory rate 16 /min Dr. Kameron Caruso MD Work Phone: [facility] 10-02-2024 09:21-0400 Systolic blood pressure 111 mm[Hg] Dr. Kameron Caruso MD Work Phone: [facility] 09-09-2024 09:02-0400 Heart rate 100 /min ONEL PALAKATZLE DO [facility] 09-09-2024 07:58-0400 Blood Pressure Cuff Size ONEL PALAKATZLE DO [facility] 09-09-2024 07:58-0400 Blood Pressure Location ONEL SCHEATZLE DO [facility] 09-09-2024 07:58-0400 Blood Pressure Method ONEL SCHEATZLE DO [facility] 09-09-2024 07:58-0400 Body temperature 96.8 [degF] ONEL SCHEATZLE DO [facility] 09-09-2024 07:58-0400 Diastolic Blood Pressure Non-Invasive 78 mm[Hg] ONEL SCHEATZLE DO [facility] 09-09-2024 07:58-0400 Heart rate 110 /min ONEL SCHEATZLE DO [facility] 09-09-2024 07:58-0400 Reason For Taking VItal Signs ONEL SCHEATZLE DO [facility] 09-09-2024 07:58-0400 Respiratory rate 16 /min ONEL SCHEATZLE DO [facility] 09-09-2024 07:58-0400 Systolic Blood Pressure Non-Invasive 122 mm[Hg] ONEL CIDATZLE DO [facility] 09-09-2024 02:45-0400 Body temperature 97.7 [degF] ONEL CIDATZLE DO [facility] 09-09-2024 02:45-0400 Diastolic Blood Pressure Non-Invasive 60 mm[Hg] ONEL CIDATZLE DO [facility] [place] 09-09-2024 02:45-0400 Heart rate 92 /min ONEL PALAKATZLE DO [facility] [place] 09-09-2024 02:45-0400 Respiratory rate 16 /min ONEL CIDATZLE DO [facility] [place] 09-09-2024 02:45-0400 Systolic Blood Pressure Non-Invasive 108 mm[Hg] ONEL PALAKATZLE DO [facility] [place] 09-08-2024 22:28-0400 Blood Pressure Cuff Size ONEL CIDATZLE DO [facility] [place] 09-08-2024 22:28-0400 Blood Pressure Location ONEL CIDATZLE DO [facility] 09-08-2024 22:28-0400 Blood Pressure Method ONEL CIDATZLE DO [facility] [place] 09-08-2024 22:28-0400 Body temperature 97.88 [degF] ONEL PALAKATZLE DO [facility] [place] 09-08-2024 22:28-0400 Diastolic Blood Pressure Non-Invasive 54 mm[Hg] ONEL PALAKATZLE DO [facility] [place] 09-08-2024 22:28-0400 Heart rate 92 /min ONEL CIDATZLE DO [facility] 09-08-2024 22:28-0400 Reason For Taking VItal Signs ONEL CIDATZLE DO [facility] 09-08-2024 22:28-0400 Respiratory rate 16 /min ONEL CIDATZLE DO [facility] 09-08-2024 22:28-0400 Systolic Blood Pressure Non-Invasive 118 mm[Hg] ONEL CIDATZLE DO [facility] 09-08-2024 18:21-0400 Heart rate 90 /min ONEL PALAKATZLE DO [facility] 09-08-2024 09:08-0400 Blood Pressure Cuff Size ONEL CIDATZLE DO [facility] 09-08-2024 09:08-0400 Blood Pressure Location ONEL CIDATZLE DO [facility] 09-08-2024 09:08-0400 Blood Pressure Method ONEL CIDATZLE DO [facility] 09-08-2024 09:08-0400 Heart rate 114 /min ONEL CIDATZLE DO [facility] 09-08-2024 09:08-0400 Reason For Taking VItal Signs ONEL CIDATZLE DO [facility] 09-04-2024 10:54-0400 Body temperature 96.62 [degF] ONEL CIDATZLE DO [facility] 09-03-2024 00:26-0400 Body temperature 97.34 [degF] ONEL CIDATZLE DO [facility] 08-30-2024 22:54-0400 Body temperature 98.06 [degF] ONEL CIDATZLE DO [facility] [place] 08-26-2024 10:36-0400 Body weight 76 kg ONEL SCHEATZLE DO [facility] [place] 08-19-2024 06:00-0400 Body weight 75.3 kg ONEL SCHEATZLE DO [facility] [place] 08-15-2024 14:27-0400 Body height 170.2 cm ONEL SCHEATZLE DO [facility] 08-15-2024 14:27-0400 Body weight 75.4 kg ONEL SCHEATZLE DO [facility] [place] 08-15-2024 14:27-0400 Body weight 26.03 kg/m2 ONEL SCHEATZLE DO [facility] 08-15-2024 09:02-0400 Diastolic blood pressure 69 mm[Hg] Prema Schuler MD Work Phone: [facility] 08-15-2024 09:02-0400 Systolic blood pressure 128 mm[Hg] Prema Schuler MD Work Phone: [facility] 08-15-2024 07:28-0400 Heart rate 86 /min Prema Schuler MD Work Phone: [facility] 08-15-2024 07:18-0400 Body temperature 97.3 [degF] Prema Schuler MD Work Phone: [facility] 08-15-2024 07:18-0400 Respiratory rate 23 /min Prema Schuler MD Work Phone: [facility] 08-15-2024 07:18-0400 SaO2% (BldA) [Mass fraction] 95 % Prema Schuler MD Work Phone: [facility] 08-05-2024 08:00-0400 Body height 170.2 cm Prema Schuler MD Work Phone: [facility] 08-05-2024 08:00-0400 Body mass index (BMI) [Ratio] 26.94 kg/m2 Prema Schuler MD Work Phone: [facility] 08-05-2024 08:00-0400 Body weight 78.02 kg Prema Schuler MD Work Phone: [facility] 08-02-2024 13:52-0400 Body temperature 98 [degF] Dr. Kameron Caruso MD Work Phone: 4(358)487-335492 [place] [address] 08-02-2024 13:52-0400 Diastolic blood pressure 91 mm[Hg] Dr. Kameron Caruso MD Work Phone: 1(964)795-730492 [place] [address] 08-02-2024 13:52-0400 Heart rate 109 /min Dr. Kameron Caruso MD Work Phone: 0(238)901-596392 [place] [address] 08-02-2024 13:52-0400 Respiratory rate 16 /min Dr. Kameron Caruso MD Work Phone: 4(855)159-117892 [place] [address] 08-02-2024 13:52-0400 SaO2% (BldA) [Mass fraction] 98 % Dr. Kameron Caruso MD Work Phone: 9(325)006-614992 [place] [address] 08-02-2024 13:52-0400 Systolic blood pressure 153 mm[Hg] Dr. Kameron Caruso MD Work Phone: 8(772)013-956692 [place] [address] 08-02-2024 12:46-0400 Body height 167.[address] Kameron Caruso MD Work Phone: 8(056)059-750692 [place] [address] 08-02-2024 12:46-0400 Body mass index (BMI) [Ratio] 26.6 kg/m2 Dr. Kameron Caruso MD Work Phone: 0(849)014-428692 [place] [address] 08-02-2024 12:46-0400 Body weight [address] Kameron Caruso MD Work Phone: 9(607)203-553892 [place] [address] 06-26-2024 09:39-0500 Body mass index (BMI) [Ratio] 27.25 kg/m2 Emma Allyhof [employer]SE Work Phone: [facility] 06-26-2024 09:39-0500 Body weight 78.93 kg Emma Canaleshof [employer]ED NURSE Work Phone: [facility] 06-26-2024 09:39-0500 Diastolic blood pressure 88 mm[Hg] Emma Canaleshof [employer]ED NURSE Work Phone: [facility] 06-26-2024 09:39-0500 Heart rate 93 /min Emma Canaleshof [employer]ED NURSE Work Phone: [facility] 06-26-2024 09:39-0500 Respiratory rate 16 /min Emma Canaleshof [employer] REG[employer]ED NURSE Work Phone: [facility] 06-26-2024 09:39-0500 SaO2% (BldA) [Mass fraction] 98 % Emma Allyhof [employer] REG[employer]ED NURSE Work Phone: [facility] 06-26-2024 09:39-0500 Systolic blood pressure 144 mm[Hg] Emma Allyhof [employer]ED NURSE Work Phone: [facility] 05-31-2024 08:56-0500 Diastolic blood pressure 84 mm[Hg] Kameron Caruso MD Work Phone: [facility] 05-31-2024 08:56-0500 Systolic blood pressure 136 mm[Hg] Kameron Caruso MD Work Phone: [facility] 05-31-2024 08:47-0500 Body mass index (BMI) [Ratio] 27.28 kg/m2 Kameron Caruso MD Work Phone: [facility] 05-31-2024 08:47-0500 Body weight 79 kg Kameron Caruso MD Work Phone: [facility] 05-31-2024 08:47-0500 Heart rate 100 /min Kameron Caruso MD Work Phone: [facility] 05-31-2024 08:47-0500 Respiratory rate 18 /min Kameron Caruso MD Work Phone: [facility] 11-28-2023 09:42-0400 Diastolic blood pressure 78 mm[Hg] Kameron Caruso MD Work Phone: [facility] 11-28-2023 09:42-0400 Systolic blood pressure 142 mm[Hg] Kameron Caruso MD Work Phone: [facility] 11-28-2023 09:41-0400 Body mass index (BMI) [Ratio] 27.82 kg/m2 Kameron Caruso MD Work Phone: [facility] 11-28-2023 09:41-0400 Body weight 80.56 kg Kameron Caruso MD Work Phone: [facility] 11-28-2023 09:41-0400 Heart rate 68 /min Kameron Caruso MD Work Phone: [facility] 11-28-2023 09:41-0400 Respiratory rate 18 /min Kameron Caruso MD Work Phone: [facility] 10-10-2023 07:31-0400 Body mass index (BMI) [Ratio] 28.35 kg/m2 David Dupree [employer]ED NURSE Work Phone: [facility] 10-10-2023 07:31-0400 Body temperature 97.5 [degF] David Claudyleantonia [employer] REGISTERED NURSE Work Phone: [facility] 10-10-2023 07:31-0400 Body weight 82.1 kg David Joon [employer] REGISTERED NURSE Work Phone: [facility] 10-10-2023 07:31-0400 Diastolic blood pressure 82 mm[Hg] David Pendlebury [employer] REGISTERED NURSE Work Phone: [facility] 10-10-2023 07:31-0400 Heart rate 58 /min David Pendiy [employer] REG[employer]ED NURSE Work Phone: [facility] 10-10-2023 07:31-0400 Respiratory rate 18 /min David Joon [employer] REGISTERED NURSE Work Phone: [facility] 10-10-2023 07:31-0400 SaO2% (BldA) [Mass fraction] 100 % David Dupree [employer] REGISTERED NURSE Work Phone: [facility] 10-10-2023 07:31-0400 Systolic blood pressure 128 mm[Hg] David Dupree [employer] REGISTERED NURSE Work Phone: [facility] 09-29-2023 14:14-0400 Body mass index (BMI) [Ratio] 29 kg/m2 Radha Levine [employer] REGISTERED NURSE Work Phone: [facility] 09-29-2023 14:14-0400 Body temperature 97.81 [degF] Radha Levine [employer] REGISTERED NURSE Work Phone: [facility] 09-29-2023 14:14-0400 Body weight 84 kg Radha Levine [employer]IVER.[employer] REGISTERED NURSE Work Phone: [facility] 09-29-2023 14:14-0400 Diastolic blood pressure 91 mm[Hg] Radha Levine [employer] REGISTERED NURSE Work Phone: [facility] 09-29-2023 14:14-0400 Heart rate 54 /min Radha Levine [employer] REGISTERED NURSE Work Phone: [facility] 09-29-2023 14:14-0400 Respiratory rate 18 /min Radha Levine [employer] REGISTERED NURSE Work Phone: [facility] 09-29-2023 14:14-0400 SaO2% (BldA) [Mass fraction] 99 % Radha Levine [employer]IVER.[employer] REGISTERED NURSE Work Phone: [facility] 09-29-2023 14:14-0400 Systolic blood pressure 148 mm[Hg] Radha Levine [employer]IVER.[employer] REGISTERED NURSE Work Phone: [facility] 05-27-2022 09:42-0500 Body weight 83.83 kg Kameron Caruso MD Work Phone: [facility] 05-27-2022 09:42-0500 Diastolic blood pressure 84 mm[Hg] Kameron Caruso MD Work Phone: [facility] 05-27-2022 09:42-0500 Heart rate 68 /min Kameron Caruso MD Work Phone: [facility] 05-27-2022 09:42-0500 Respiratory rate 16 /min Kameron Caruso MD Work Phone: [facility] 05-27-2022 09:42-0500 Systolic blood pressure 136 mm[Hg] Kameron Caruso MD Work Phone: [facility] 03-02-2022 10:52-0400 Diastolic blood pressure 76 mm[Hg] Emma Tannhof [employer]IVER.[employer] REGISTERED NURSE Work Phone: [facility] 03-02-2022 10:52-0400 Heart rate 92 /min Emma Tannhof [employer]IVER.[employer] REGISTERED NURSE Work Phone: [facility] 03-02-2022 10:52-0400 Respiratory rate 18 /min Emma Tannhof [employer]IVER.[employer] REGISTERED NURSE Work Phone: [facility] 03-02-2022 10:52-0400 Systolic blood pressure 140 mm[Hg] Emma Tannhof [employer]IVER.[employer] REGISTERED NURSE Work Phone: [facility] 11-23-2021 09:39-0400 Body weight 83.1 kg Kameron Caruso MD Work Phone: [facility] 11-23-2021 09:39-0400 Diastolic blood pressure 80 mm[Hg] Kameron Caruso MD Work Phone: [facility] 11-23-2021 09:39-0400 Heart rate 84 /min Kameron Caruso MD Work Phone: [facility] 11-23-2021 09:39-0400 Respiratory rate 16 /min Kameron Caruso MD Work Phone: [facility] 11-23-2021 09:39-0400 Systolic blood pressure 138 mm[Hg] Kameron Caruso MD Work Phone: [facility] 10-16-2019 10:09-0400 BP Diastolic 72 mm[Hg] [facility] [place] [facility] [place] 10-16-2019 10:09-0400 BP Systolic 144 mm[Hg] [facility] [place] [facility] [place] 10-16-2019 10:09-0400 Pulse (Heart Rate) 62 /min Hailey Miller [facility] [place], [place] 10-16-2019 10:09-0400 Pulse Oximetry 98 % Hailey Miller [facility] [place] , [place] 10-16-2019 10:09-0400 Respiratory Rate 18 /min [facility] [place] 10-16-2019 09:15-0400 BMI (Body Mass Index) 29.44 kg/m2 Hailey Clements [facility], [place] 10-16-2019 09:15-0400 Body Temperature 97.81 [degF] [facility] [place] 10-16-2019 09:15-0400 Body weight 85.28 kg Hailey Miller [facility] , [place] 10-16-2019 09:15-0400 Height 170.2 cm Hailey Miller [facility] , [place] 01-09-2019 12:06-0400 BP Diastolic 73 mm[Hg] Hailey Miller [facility] [place] , [place] 01-09-2019 12:06-0400 BP Systolic 121 mm[Hg] Hailey Miller [facility] [place] , [place] 01-09-2019 11:50-0400 Pulse (Heart Rate) 64 /min Hailey Miller [facility], [place] 01-09-2019 11:50-0400 Pulse Oximetry 100 % Hailey Miller [facility] , [place] 01-09-2019 11:50-0400 Respiratory Rate 18 /min [facility] 01-09-2019 10:28-0400 BMI (Body Mass Index) 28.82 kg/m2 Hailey Clements [facility], [place] 01-09-2019 10:28-0400 Body weight 83.46 kg Hailey Miller [facility] , [place] 01-09-2019 10:28-0400 Height 170.2 cm Hailey Miller [facility] , [place] 01-09-2019 10:27-0400 Body Temperature 97.5 [degF] [facility] [place] [facility]ters Encounter Date Encounter Type Care Provider Facility Start: 03-25-2025 ambulatory Efewongbe Oleghe [facility] Fa cility:[facility] Start: 03-18-2025 ambulatory Efewongbe Oleghe OLS Fa cility:[facility] Start: 03-11-2025 ambulatory Efewongbe Oleghe OLS Fa cility:[facility] Start: 03-04-2025 ambulatory Efewongbe Oleghe OLS Fa cility:[facility] Start: 02-25-2025 ambulatory Efewongbe Oleghe OLS Fa cility:[facility] Start: 02-18-2025 ambulatory Efewongbe Oleghe OLS Fa cility:[facility] Start: 02-18-2025 Safia Forde Veronica - [place] Start: 02-11-2025 ambulatory [facility] [facility] [place] Start: 02-11-2025 Safia Forde Veronica - [place] Start: 02-04-2025 ambulatory Efewongbe Oleghe OLS Fa cility:[facility] [place] Start: 02-04-2025 Safia Forde Veronica - [place] Start: 01-28-2025 ambulatory Efewongbe Oleghe OLS Fa cility:[facility] [place] Start: 01-28-2025 Safia Martin - [place] Start: 01-21-2025 ambulatory Efewongbe Oleghe OLS Fa cility:[facility] [place] Start: 01-21-2025 Safia Forde Veronica - Melissa Start: 01-14-2025 ambulatory Efewongbe Oleghe OLS Fa cility:[facility] [place] Start: 01-14-2025 Safia Torres Start: 01-07-2025 End: 01-07-[address] Kameron Caruso MD Work Phone: -Veronica Torres Start: 01-07-2025 End: 01-07-2025 Safia FordeVeronica Torres Start: 01-07-2025 End: 01-07-2025 ambulatory Kameron Caruso Facility:[facility] [place] Start: 12-31-2024 End: 12-31-[address] Kameron Caruso MD Work Phone: [facility] Start: 12-31-2024 End: 12-31-2024 Dr. Safia Ruelas MD -[facility] Work Phone: Start: 12-24-2024 ambulatory Kameron Caruso Facilit y:[facility] [place] Start: 12-24-2024 Safia SOMMER L - [place] Start: 12-17-2024 ambulatory Efewongbe Oleghe OLS Fa cility:[facility] [place] Start: 12-17-2024 Safia Martin - [place] Start: 12-10-2024 ambulatory Efewongbe Oleghe OLS Fa cility:[facility] [place] Start: 12-10-2024 Safia SOMMER L - [place] Start: 12-03-2024 ambulatory Efewongbe Oleghe OLS Fa cility:[facility] [place] Start: 12-03-2024 Safia Martin - [place] Start: 11-28-2024 End: 11-28-[address] Kameron Caruso MD Work Phone: [facility] Start: 11-28-2024 End: 11-28-2024 Bret QUARLESC -[facility] Work Phone: Start: 11-26-2024 ambulatory Efewongbe Oleghe OLS Fa cility:[facility] [place] Start: 11-26-2024 Registered Referred Safia Torres Start: 11-26-2024 Safia Martin - [place] Start: 11-25-2024 End: 11-25-[address] Kameron Caruso MD Work Phone: MISSAEL Torres Start: 11-25-2024 Registered Referred Safia Torres Start: 11-25-2024 End: 11-25-2024 Safia Torres Start: 11-25-2024 End: 11-25-2024 ambulatory Efsherry Ruelas OLS Facility:[facility] [place] Start: 11-20-2024 End: 11-20-[address] Kameron Caruso MD Work Phone: [facility] Start: 11-20-2024 End: 11-20-2024 Bret WILKERSON -[facility] Work Phone: Start: 11-19-2024 ambulatory Efjean mariejosé antonio Ruelas OLS Fa cility:[facility] [place] Start: 11-19-2024 Registered Referred Safia Torres Start: 11-19-2024 Safia Torres Start: 11-12-2024 End: 11-12-[address] Kameron Caruso MD Work Phone: -GIL[facility] Torres Start: 11-12-2024 Registered Referred Safia Torres Start: 11-12-2024 End: 11-12-2024 Safia Torres Start: 11-12-2024 End: 11-12-2024 ambulatory Efjean mariejosé antonio Ruelas OLS Facility:[facility] [place] Start: 11-05-2024 ambulatory Efjean mariejosé antonio Griderbonie OLS Fa cility:[facility] [place] Start: 11-05-2024 Registered Referred Safia Torres Start: 11-05-2024 Safia Torres Start: 10-30-2024 End: 10-30-[address] Kameron Caruso MD Work Phone: [facility] Start: 10-30-2024 End: 10-30-2024 Patient encounter [facility] Start: 10-30-2024 End: 10-30-2024 [facility] Work Phone: Start: 10-29-2024 End: 10-29-[address] Safia Ruelas MD -[facility] Work Phone: Start: 10-29-2024 End: 10-29-[address] Kameron Caruso MD Work Phone: [facility] Start: 10-29-2024 Registered Referred Safia Torres Start: 10-29-2024 End: 10-29-2024 Dr. Safia Ruelas MD -[facility] Work Phone: Start: 10-29-2024 End: 10-29-2024 ambulatory Safia VARGAS Facility:[facility] [place] Start: 10-23-2024 ambulatory Efsherry Ruelas OLS Fa cility:[facility] [place] Start: 10-23-2024 Registered Referred Safia Torres Start: 10-23-2024 Safia Torres Start: 10-22-2024 End: 10-22-2024 [facility] Work [facility]: Start: 10-22-2024 End: 10-22-[address] Kameron Caruso MD Work Phone: [facility] Start: 10-22-2024 Registered Referred Safia Torres Start: 10-22-2024 End: 10-22-2024 [facility] Work Phone: Start: 10-15-2024 ambulatory Efsherry Ruelas OLS Fa cility:[facility] [place] Start: 10-15-2024 Registered Referred Safia Ambrosioon Start: 10-15-2024 Safia Torres Start: 10-09-2024 End: 10-09-[address] Kameron Caruso MD Work Phone: [facility] Start: 10-09-2024 End: 10-09-2024 Patient encounter procedure Bret Snyder CAN REPAIRER- -[facility] Work Phone: Start: 10-09-2024 End: 10-09-[address] [facility] Work Phone: Start: 10-08-2024 ambulatory Safia VARGAS Fa cility:[facility] [place] Start: 10-08-2024 Registered Referred Safia Torres Start: 10-08-2024 Safia Torres Start: 10-02-2024 End: 10-02-[address] Mj Benavides MD -[facility] Work Phone: Start: 10-02-2024 End: 10-02-2024 Dr. Mj Benavides MD -[facility] Work Phone: Start: 10-02-2024 End: 10-02-[address] Kameron Caruso MD Work Phone: [facility] Work Phone: Start: 10-01-2024 ambulatory Safia Ruelas OLS Fa cility:[facility] [place] Start: 10-01-2024 Registered Referred Safia Torres Start: 10-01-2024 Safia Torres Start: 09-29-2024 ambulatory Safia Ruelas OLS Fa cility:[facility] [place] Start: 09-29-2024 Registered Referred Safia Torres Start: 09-29-2024 Safia Torres Start: 09-24-2024 ambulatory Safia Ruelas OLS Fa cility:[facility] [place] Start: 09-24-2024 Registered Referred Safia Torres Start: 09-24-2024 Safia Torres Start: 09-17-2024 ambulatory Balbirjean mariejosé antonio Ruelas OLS Fa cility:[facility] [place] Start: 09-17-2024 Registered Referred Safia Torres Start: 09-17-2024 Safia Torres Start: 09-11-2024 End: 09-11-2024 ambulatory Bret Snyder NP Facility:[facility] Start: 09-11-2024 End: 09-11-2024 Patient encounter procedure Bret Snyder CAN REPAIRER- -[facility] Work Phone: Start: 09-11-2024 End: 09-11-2024 Bret Snyder CAN REPAIRER- -[facility] Work Phone: Start: 09-10-2024 End: 09-10-[address] Safia Ruelas MD -[facility] Work Phone: Start: 09-10-2024 End: 09-10-2024 ambulatory Kameron Caruso Facility:[facility] Start: 09-10-2024 Registered Referred Safia Torres Start: 09-10-2024 End: 09-10-2024 Dr. Safia FordeBayard Custodial Work Phone: Start: 08-30-2024 End: 08-30-2024 Telephone encounter Kameron Caruso MD Work Phone: [facility] Comment on above: Lavon Chucho conde ng verbal agree to follow Start: 08-15-2024 End: 09-09-2024 Evaluation and management of inpatient ONEL HA DO Lavon Garcia Start: 08-09-2024 Evaluation and manag ement of inpatient KAMERON CARUSO Facility:[facility] Start: 08-06-2024 Evaluation and manag ement of inpatient [facility] Start: 08-02-2024 End: 08-02-2024 ambulatory JUVENTINO ROGERS Facility:[facility] Start: 08-02-2024 End: 08-15-2024 Evaluation and management of inpatient Prema Schuler MD Work Phone: [id number] Start: 08-02-2024 End: [...] Kameron Caruso MD Work Phone: [facility] [place] Comment on above: medication not on cu rrent med list Start: 06-26-2024 End: 06-26-2024 Office outpatient visit 25 minutes Emma Sotomayor APRN.CNP Work Phone: [facility] [place] Comment on above: Atrial fibrillation, unspecified type (HCC) (Primary Dx); Hypothyroidism, unspecified type; Need for malaria prophylaxis Start: 06-26-2024 End: 06-26-2024 ambulatory EMMA SOTOMAYOR Facility:[facility] Start: 06-25-2024 ambulatory KAMERON CARUSO Facil ity:[facility] Start: 06-24-2024 End: 06-24-2024 Telephone encounter Kameron Caruso MD Work Phone: [facility] [place] Comment on above: Patient Update Start: 06-11-2024 End: 06-11-2024 Telephone encounter Kameron Caruso MD Work Phone: [facility] [place] Comment on above: Results Start: 06-11-2024 End: 06-11-2024 ambulatory [facility] Facility:[facility] Start: 06-10-2024 End: 06-11-2024 Telephone encounter Kameron Caruso MD Work Phone: [facility] [place] Comment on above: Medication Problem Start: 05-31-2024 End: 05-31-2024 [facility] Facility:[facility] Start: 05-31-2024 End: 05-31-2024 Patient encounter procedure [...] unspecified type (HCC) Start: 05-23-2024 End: 05-23-2024 [facility] Facility:[facility] Start: 11-28-2023 End: 11-28-2023 [facility] Facility:[facility] Start: 11-28-2023 End: 11-28-2023 Patient encounter procedure Kameron Caruso MD Work Phone: [facility] [place] Comment on above: 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, unspecified CKD stage, unspecified whether snf insulin use (HCC) (Primary Dx); Essential hypertension, benign; Chronic kidney disease, stage 3a (HCC); Hyperlipidemia, unspecified hyperlipidemia type; Hypothyroidism, unspecified type; Edema of left lower leg; Memory loss; Type 2 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, without long-term current use of insulin (HCC) Start: 11-27-2023 End: 11-27-2023 [facility] Facility:[facility] Start: 10-10-2023 End: 10-10-2023 [facility] Facility:[facility] Start: 10-10-2023 End: 10-10-2023 Office outpatient visit 25 minutes David Dupree CATSHOVEL DRIVER.PER DIEM REGISTERED NURSE Work Phone: [facility] Comment on above: Rash (Primary Dx) Start: 09-29-2023 End: 09-29-2023 ambulatory KAMERON CARUSO Facility:[facility] Start: 09-29-2023 End: 09-29-2023 Patient encounter procedure Radha Levine CATSHOVEL DRIVER.PER DIEM REGISTERED NURSE Work Phone: [facility] Comment on above: Allergic contact lexi matitis due to plant (Primary Dx) Start: 09-19-2023 Refill Kameron nixon MD Work Phone: [facility] [place] Comment on above: Refill Request Start: 04-08-2023 Telephone encounter Kameron bucio MD Work Phone: [address] [place] [address] Comment on above: Refill Request Start: 11-25-2022 Telephone encounter Kameron bucio MD Work Phone: [facility] [place] Comment on above: Patient Question Start: 05-27-2022 End: 05-27-2022 Patient encounter procedure Kameron Caruso MD Work Phone: [facility] [place] Comment on above: Essential hypertensi on, benign (Primary Dx); Hypothyroidism, unspecified type; Type 2 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, without long-term current use of insulin (HCC); Hyperlipidemia, unspecified hyperlipidemia type; Chronic kidney disease, stage 3a (HCC); Edema of left lower leg; Wellness examination Start: 05-27-2022 End: 05-27-2022 Patient encounter status Kameron Caruso MD Work Phone: [facility] [place] Start: 04-11-2022 Refill Kameron nixon MD Work Phone: [facility] Comment on above: Refill Request Start: 03-02-2022 ambulatory Kameron nixon MD Work Phone: [facility] [place] Comment on above: Back Pain Start: 03-02-2022 End: 03-02-2022 Patient encounter procedure Emma Gonzalesfreddie WEAHTERS.PER DIEM REGISTERED NURSE Work Phone: [facility] [place] Comment on above: Acute midline low ba ck pain without sciatica (Primary Dx) Start: 01-11-2022 Refill Mj ORTIZ RN.PER DIEM REGISTERED NURSE Work Phone: [facility] [place] Comment on above: Refill Request Start: 01-11-2022 Refill Kameron nixon MD Work Phone: [facility] [place] Comment on above: Refill Request Start: 12-16-2021 Telephone encounter Kameron bucio MD Work Phone: [facility] [place] Comment on above: Diabetic Testing Sup plies Start: 11-23-2021 End: 11-23-2021 Refill Kameron Caruso MD Work Phone: [facility] [place] Comment on above: 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, unspecified CKD stage, unspecified whether snf insulin use (HCC) (Primary Dx); Essential hypertension, benign; Hyperlipidemia, unspecified hyperlipidemia type; Stage 3b chronic kidney disease (HCC); Hypothyroidism, unspecified type; Memory loss Start: 10-14-2021 Refill Kameron nixon MD Work Phone: [facility] Comment on above: Refill Request Start: 09-27-2021 Telephone encounter Kameron bucio MD Work Phone: [facility] Comment on above: information requeste d/rxs needed Start: 09-13-2021 Telephone encounter Kameron bucio MD Work Phone: [facility] Comment on above: Patient Question; Me dication Request Start: 10-16-2019 End: 10-16-2019 Subsequent hospital visit by physician Hailey Jose Work Phone: [facility] Comment on above: Arrived Start: 01-09-2019 End: 01-09-2019 Subsequent hospital visit by physician Hailey Jose Work Phone: [facility] [...] Start: 10-15-2024 Platelet mean volume determination Dr. Kaemron Caruso MD Work Phone: Start: 10-08-2024 Blood [...] Work Phone: Start: 09-10-2024 Blood count smear rscp w/mnl difrntl wbc [...] 08-15-2024 Assay of magnesium Abdoule scott Mccoy CATSHOVEL DRIVER-PER DIEM REGISTERED NURSE Work Phone: Start: 08-15-2024 Glucose measurement, blood Christos Voss MD Work Phone: Start: 08-14-2024 Glucose measurement, blood Christos Voss MD Work Phone: Start: 08-14-2024 Glucose measurement, blood Christos Voss MD Work Phone: Start: 08-14-2024 Glucose measurement, blood Christos Voss MD Work Phone: Start: 08-14-2024 Assay of magnesium Abdoule rin M Nadine CATSHOVEL DRIVER-PER DIEM REGISTERED NURSE Work Phone: Start: 08-13-2024 Glucose measurement, blood Christos Voss MD Work Phone: Start: 08-13-2024 Glucose measurement, blood Christos Voss MD Work Phone: Start: 08-13-2024 Glucose measurement, blood Christos Voss MD Work Phone: Start: 08-13-2024 Glucose measurement, blood Felicity Castellano MD Work Phone: Start: 08-13-2024 Assay of magnesium Abdoule scott Hwang Nadine CATSHOVEL DRIVER-PER DIEM REGISTERED NURSE Work Phone: Start: 08-13-2024 Glucose measurement, blood Felicity Castellano MD Work Phone: Start: 08-12-2024 Glucose measurement, blood Felicity Castellano MD Work Phone: Start: 08-12-2024 Glucose measurement, blood Felicity Castellano MD Work Phone: Start: 08-12-2024 Glucose measurement, blood Felicity Castellano MD Work Phone: Start: 08-12-2024 Assay of magnesium Abdoule scott Hwang Nadine CATSHOVEL DRIVER-PER DIEM REGISTERED NURSE Work Phone: Start: 08-12-2024 Glucose measurement, blood Felicity Castellano MD Work Phone: Start: 08-11-2024 Glucose measurement, blood Felicity Castellano MD Work Phone: Start: 08-11-2024 Glucose measurement, blood Felicity Castellano MD Work Phone: Start: 08-11-2024 Glucose measurement, blood Felicity Castellano MD Work Phone: Start: 08-11-2024 Assay of magnesium Abram Schulteameh CATSHOVEL DRIVER-[facility] Work Phone: Start: 08-10-2024 Glucose measurement, blood Felicity Castellano MD Work Phone: Start: 08-10-2024 Glucose measurement, blood Felicity Castellano MD Work Phone: Start: 08-10-2024 End: 08-10-2024 Culture bacterial blood aerobic w/id isolates Radha Gr CATSHOVEL DRIVER-PER DIEM REGISTERED NURSE Work Phone: Start: 08-10-2024 Glucose measurement, blood Felicity Castellano MD Work Phone: Start: 08-10-2024 End: 08-10-2024 Glucose measurement, blood Felicity Castellano MD Work Phone: Start: 08-10-2024 Glucose measurement, blood Felicity Castellano MD Work Phone: Start: 08-10-2024 Assay of magnesium Abram Hwang Nadine CATSHOVEL DRIVER-PER DIEM REGISTERED NURSE Work Phone: Start: 08-10-2024 Glucose measurement, blood Felicity Castellano MD Work Phone: Start: 08-09-2024 Glucose measurement, blood Felicity Castellano MD Work Phone: Start: 08-09-2024 Glucose measurement, blood Felicity Castellano MD Work Phone: Start: 08-09-2024 INTERVENTIONAL UPPER ENDOSCOPY Migdalia Mccabe MD Work Phone: Start: 08-09-2024 Level iv surg pathol ogy gross&microscopic exam Judson Keith DO Work Phone: Start: 08-09-2024 Glucose measurement, blood Felicity Castellano MD Work Phone: Start: 08-09-2024 Assay of magnesium Abram Hwang Nadine CATSHOVEL DRIVER-PER DIEM REGISTERED NURSE Work Phone: Start: 08-09-2024 Glucose measurement, blood Felicity Castellano MD Work Phone: Start: 08-08-2024 Glucose measurement, blood Felicity Castellano MD Work Phone: Start: 08-08-2024 Culture bct isol&prs mptv id isolate ea urine Bella Cardenas CATSHOVEL DRIVER-PER DIEM REGISTERED NURSE Work Phone: Start: 08-08-2024 EXTRA MICRO Bella Hwang Ma rtinis CATSHOVEL DRIVER-PER DIEM REGISTERED NURSE Work Phone: Start: 08-08-2024 URINALYSIS REFLEX TO CULTURE Bella Cardenas CATSHOVEL DRIVER-PER DIEM REGISTERED NURSE Work Phone: Start: 08-08-2024 Ct head/brain w/o co ntrast material Bella Cardenas CATSHOVEL DRIVER-PER DIEM REGISTERED NURSE Work Phone: Start: 08-08-2024 Glucose measurement, blood Felicity Castellano MD Work Phone: Start: 08-08-2024 End: 08-08-2024 Glucose measurement, blood Felicity Castellano MD Work Phone: Start: 08-08-2024 Assay of magnesium Abram Hwang Nadine CATSHOVEL DRIVER-PER DIEM REGISTERED NURSE Work Phone: Start: 08-07-2024 Glucose measurement, blood Felicity Castellano MD Work Phone: Start: 08-07-2024 Glucose measurement, blood Felicity Castellano MD Work Phone: Start: 08-07-2024 Glucose measurement, blood Felicity Castellano MD Work Phone: Start: 08-07-2024 Glucose measurement, blood Felicity Castellano MD Work Phone: Start: 08-06-2024 Glucose measurement, blood Felicity Castellano MD Work Phone: Start: 08-06-2024 Assay of magnesium Abdoulmelanie Hwang Nadine CATSHOVEL DRIVER-PER DIEM REGISTERED NURSE Work Phone: Start: 08-06-2024 Glucose measurement, blood Felicity Castellano MD Work Phone: Start: 08-06-2024 Glucose measurement, blood Felicity Castellano MD Work Phone: Start: 08-06-2024 Radiologic exam swal low function contrast study Shanna Russ CATSHOVEL DRIVER-PER DIEM REGISTERED NURSE Work Phone: Start: 08-06-2024 SPEECH MODIFIED KEAGAN UM SWALLOW Shanna Russ CATSHOVEL DRIVER-PER DIEM REGISTERED NURSE Work Phone: Start: 08-06-2024 Glucose measurement, blood Felicity Castellano MD Work Phone: Start: 08-05-2024 Glucose measurement, blood Felicity Castellano MD Work Phone: Start: 08-05-2024 Assay of magnesium Abram Mccoy CATSHOVEL DRIVER-PER DIEM REGISTERED NURSE Work Phone: Start: 08-05-2024 Glucose measurement, blood Felicity Castellano MD Work Phone: Start: 08-05-2024 Glucose measurement, blood Felicity Castellano MD Work Phone: Start: 08-05-2024 Echo tthrc r-t 2d w/wom-mode compl spec&colr d Taran Traore CATSHOVEL DRIVER-PER DIEM REGISTERED NURSE Work Phone: Start: 08-05-2024 Glucose measurement, blood Felicity Castellano MD Work Phone: Start: 08-05-2024 Assay of magnesium Abram Schulteameh CATSHOVEL DRIVER-PER DIEM REGISTERED NURSE Work Phone: Start: 08-05-2024 Glucose measurement, blood [...] Start: 08-04-2024 Assay of magnesium Abram Mccoy CATSHOVEL DRIVER-PER DIEM REGISTERED NURSE Work Phone: Start: 08-04-2024 Glucose measurement, blood Richard Mejia MD Work Phone: Start: 08-03-2024 Ct head/brain w/o co ntrast material Shaila L Marcak PA-C Start: 08-03-2024 Sodium serum plasma or whole blood Shanna Denise MD Work Phone: Start: 08-03-2024 Glucose measurement, blood Richard Mejia MD Work Phone: Start: 08-03-2024 Radiologic exam abdo men 1 view Balbir Cardenash CATSHOVEL DRIVER-PER DIEM REGISTERED NURSE Work Phone: Start: 08-03-2024 Glucose measurement, blood Richard Mejia MD Work Phone: Start: 08-03-2024 Sodium serum plasma or whole blood Shanna Denise MD Work Phone: Start: 08-03-2024 Glucose measurement, blood Richard Mejia MD Work Phone: Start: 08-03-2024 Ct head/brain w/o co ntrast material Shaila L Marcak PA-C Start: 08-03-2024 Glucose measurement, blood Richard Mejia MD Work Phone: Start: 08-03-2024 End: 08-03-2024 Mri brain brain stem w/o contrast material Taran Traore CATSHOVEL DRIVER-PER DIEM REGISTERED NURSE Work Phone: Start: 08-03-2024 ABORH TYPE RECONFIRMATION Cindy CORDOVA Work Phone: Start: 08-03-2024 Assay of magnesium Abram Mccoy CATSHOVEL DRIVER-PER DIEM REGISTERED NURSE Work Phone: Start: 08-02-2024 Glucose measurement, blood Prema Schuler MD Work Phone: Start: 08-02-2024 End: 08-02-2024 [...] Ciupak PA-C Start: 08-02-2024 Antibody screen Devyn Schuler MD Work Phone: Start: 08-02-2024 Antibody screen CHRISTOS VOSS Comment on above: Performed By: #### X M #### [facility] ([facility]) [address] [place] [address] Start: 08-02-2024 EXTRA MICRO Taran Traore CATSHOVEL DRIVER-PER DIEM REGISTERED NURSE Work Phone: Start: 08-02-2024 Hemoglobin glycosylated a1c Balbir Mccoy CATSHOVEL DRIVER-PER DIEM REGISTERED NURSE Work Phone: Start: 08-02-2024 Hepatic function panel Balbir Mccoy CATSHOVEL DRIVER-PER DIEM REGISTERED NURSE Work Phone: Start: 08-02-2024 Iadna s aureus ampli fied probe tq Balbir Mccoy CATSHOVEL DRIVER-PER DIEM REGISTERED NURSE Work Phone: Start: 08-02-2024 URINALYSIS REFLEX TO CULTURE Taran Traore CATSHOVEL DRIVER-PER DIEM REGISTERED NURSE Work Phone: Start: 08-02-2024 Urnls dip stick/tabl et reagent auto microscopy Taran Traore CATSHOVEL DRIVER-PER DIEM REGISTERED NURSE Work Phone: Start: 08-02-2024 SARS-CoV-2, Influenz a [...] 11-05-2020 Adult depression scr eening assessment Kameron aCruso MD Work Phone: Start: 10-16-2019 [facility]COPY REPORT 3m Scanning Blepharoplasty ONEL Garza DO Breast biopsy and re lated procedures ONEL HA DO section ONEL MARTINEZ DO Comment on above: X2 Colonoscopy ONEL HA DO Extraction of cataract ONEL HA DO Open reduction of fr acture with internal fixation ONEL HA DO Comment on above: LEFT ARM Plan of Treatment Date Care Activity Detail Author Start: 08-15-2025 Complete blood count Hemoglobin/Hematocrit [facility] Start: 08-15-2025 Creatinine measurement Serum Creatinine [facility] Start: 08-02-2025 Thyroid stimulating hormone measurement [facility] Start: 06-26-2025 Annual PCP Team Chronic Disease Visit Annual PCP Team Chronic Disease Visit [facility] Start: 05-31-2025 Annual PCP Team Chronic Disease Visit Annual PCP Team Chronic Disease Visit [facility] Start: 05-31-2025 Covid-19 Vaccine ( season) Covid-19 Vaccine ( season) [facility] Comment on above: Postponed from 01/14/2024 (Declined at t his time) Start: 05-31-2025 Pneumococcal Vaccine: 50+ (2 of 2 - PPSV23) Pneumococcal Vaccine: 50+ (2 of 2 - PPSV23) [facility] Comment on above: Postponed from 12/19/2019 (Declined at t his time) Start: 05-23-2025 Creatinine measurement Serum Creatinine [facility] Start: 05-23-2025 Hepatitis B screening Urine Albumin:Creatinine Ratio [facility] Start: 05-23-2025 Hepatitis B surface antibody level LDL Cholesterol [facility] Start: 03-04-2025 -GILMA Torres Start: 02-25-2025 -GILMA Torres Start: 02-02-2025 Hemoglobin A1c measurement HbA1C [facility] Start: 01-13-2025 Influenza vaccination [facility] Start: 01-03-2025 Glaucoma screening Dilated Retinal Exam [facility] Start: 12-24-2024 End: 12-24-2024 Patient encounter procedure 12/24/2024 9:20 AM EDT Office [facility] [address] [place] [address] Kameron Caruso MD [address] [place], [place] [id number] 6 month follow up [facility] Comment on above: 6 month follow up Start: 11-28-2024 End: 02-27-2025 Comprehensive metabolic 2000 panel - Serum or Plasma COMPREHENSIVE METABOLIC PANEL Lab Routine Essential hypertension, benign Chronic kidney disease, stage 3a (HCC) Hyperlipidemia, unspecified hyperlipidemia type Expected: 11/28/2024 (Approximate), Expires: 02/27/2025 [facility] Work Phone: Comment on above: Expected: 11/28/2024 (Approximate), Expi res: 02/27/2025 Start: 11-28-2024 End: 02-27-2025 Hemoglobin A1c in Blood HEMOGLOBIN A1C Lab Routine Expected: 11/28/2024 (Approximate), Expires: 02/27/2025 [facility] Comment on above: Expected: 11/28/2024 (Approximate), Expi res: 02/27/2025 Start: 11-28-2024 End: 02-27-2025 Lipid 1996 panel - Serum or Plasma LIPID PANEL BASIC Lab Routine Essential hypertension, benign Hyperlipidemia, unspecified hyperlipidemia type Expected: 11/28/2024 (Approximate), Expires: 02/27/2025 [facility] Comment on above: Expected: 11/28/2024 (Approximate), Expi res: 02/27/2025 Start: 11-28-2024 End: 02-27-2025 Thyrotropin [Units/volume] in Serum or Plasma THYROID STIMULATING HORMONE Lab Routine Hypothyroidism, unspecified type Expected: 11/28/2024 (Approximate), Expires: 02/27/2025 [facility] Comment on above: Expected: 11/28/2024 (Approximate), Expi res: 02/27/2025 Start: 11-27-2024 Annual PCP Team Chronic Disease Visit Annual PCP Team Chronic Disease Visit [facility] Start: 11-27-2024 Anxiety Screening Anxiety Screening [facility] Start: 11-27-2024 Depression Screening Depression Screening [facility] Start: 11-27-2024 RSV Vaccine (1 - 1-dose 60+ series) RSV Vaccine (1 - 1-dose 60+ series) [facility] Comment on above: Postponed from 2004 (Declined at t his time) Start: 11-27-2024 RSV Vaccine (1 - 1-dose 75+ series) RSV Vaccine (1 - 1-dose 75+ series) [facility] Comment on above: Postponed from 10/26/2019 (Declined at t his time) Start: 11-26-2024 Creatinine measurement Serum Creatinine [facility] Start: 11-26-2024 Hepatitis B surface antibody level LDL Cholesterol [facility] Start: 11-20-2024 [facility]c [facility] Start: 11-11-2024 [facility] Comment on above: Postponed from 01/14/2024 (Declined at t his time) Start: 10-08-2024 End: 10-08-2024 ambulatory [facility] Start: 10-02-2024 Evaluation of diagnostic study results 12 Lead EKG performed by [facility] Start: 08-02-2024 [facility] Start: 08-02-2024 SARS-CoV-2, Influenza & RSV (PCR) SARS-CoV-2, Influenza & RSV (PCR) [facility] Start: 08-02-2024 End: 08-02-2024 [facility] Start: 08-02-2024 Electrocardiographic procedure [facility] Start: 08-02-2024 Oxygen therapy [facility] Start: 07-24-2024 End: 10-23-2024 Thyrotropin [Units/volume] in Serum or Plasma THYROID STIMULATING HORMONE Lab Routine Hypothyroidism, unspecified type Expected: 07/24/2024, Expires: 10/23/2024 [facility] Work Phone: Comment on above: Expected: 07/24/2024, Expires: Start: 07-24-2024 End: 10-23-2024 Thyroxine (T4) free [Mass/volume] in Serum or Plasma T4 FREE/FREE THYROXINE Lab Routine Hypothyroidism, unspecified type Expected: 07/24/2024, Expires: 10/23/2024 [facility] Comment on above: Expected: 07/24/2024, Expires: Start: 06-25-2024 End: 06-25-2024 Patient encounter procedure 06/25/2024 9:40 AM EST Office Visit [facility] [place] [address] [place], [place] [id number] Kameron Caruso MD [address] [place], [place] [phone] 1 mo f/u, new dx afib. [facility] [place] Comment on above: 1 mo f/u, new dx afib. Start: 06-11-2024 End: 06-11-2024 Patient encounter procedure 06/11/2024 8:50 AM EST Office Visit Cardiology [address] [place], [place] [id number] Atrial fibrillation, unspecified type (HCC) [I48.91] Cardiology Comment on above: Atrial fibrillation, unspecified type (H CC) [I48.91] Start: 05-30-2024 Annual PCP Team Chronic Disease Visit Annual PCP Team Chronic Disease Visit [facility] Start: 05-30-2024 End: 08-29-2024 Comprehensive metabolic 2000 panel - Serum or Plasma COMPREHENSIVE METABOLIC PANEL Lab Routine Type 2 diabetes mellitus with diabetic chronic kidney disease, unspecified CKD stage, unspecified whether ad terminal makeup operator insulin use (HCC) Essential hypertension, benign Chronic kidney disease, stage 3a (HCC) Hyperlipidemia, unspecified hyperlipidemia type Expected: 05/30/2024 (Approximate), Expires: 08/29/2024 [facility] Work Phone: Comment on above: Expected: 05/30/2024 (Approximate), Expi res: 08/29/2024 Start: 05-30-2024 Covid-19 Vaccine () Covid-19 Vaccine ( season) [facility] Comment on above: Postponed from 01/13/2023 (Declined at t his time) Start: 05-30-2024 End: 08-29-2024 Hemoglobin A1c in Blood HEMOGLOBIN A1C Lab Routine Type 2 diabetes mellitus with diabetic chronic kidney disease, unspecified CKD stage, unspecified whether snf insulin use (HCC) Expected: 05/30/2024 (Approximate), Expires: 08/29/2024 [facility] Comment on above: Expected: 05/30/2024 (Approximate), Expi res: 08/29/2024 Start: 05-30-2024 Hepatitis C screening Hepatitis C Screening [facility] Comment on above: Postponed from 1962 (Declined at t his time) Start: 05-30-2024 End: 08-29-2024 Lipid 1996 panel - Serum or Plasma LIPID PANEL BASIC Lab Routine Type 2 diabetes mellitus with diabetic chronic kidney disease, unspecified CKD stage, unspecified whether snf insulin use (HCC) Essential hypertension, benign Hyperlipidemia, unspecified hyperlipidemia type Expected: 05/30/2024 (Approximate), Expires: 08/29/2024 [facility] Comment on above: Expected: 05/30/2024 (Approximate), Expi res: 08/29/2024 Start: 05-30-2024 End: 08-29-2024 Microalbumin/Creatinine [Mass Ratio] in Urine ALBUMIN/CREATININE RATIO, URINE Lab Routine Type 2 diabetes mellitus with diabetic chronic kidney disease, unspecified CKD stage, unspecified whether ad terminal makeup operator insulin use (HCC) Expected: 05/30/2024 (Approximate), Expires: 08/29/2024 [facility] Comment on above: Expected: 05/30/2024 (Approximate), Expi res: 08/29/2024 Start: 05-30-2024 Pneumococcal Vaccine: 65+ (2 of 2 - PPSV23 or PCV20) Pneumococcal Vaccine: 65+ (2 of 2 - PPSV23 or PCV20) [facility] Comment on above: Postponed from 12/19/2019 (Declined at t his time) Start: 05-30-2024 End: 08-29-2024 Thyrotropin [Units/volume] in Serum or Plasma THYROID STIMULATING HORMONE Lab Routine Hypothyroidism, unspecified type Expected: 05/30/2024 (Approximate), Expires: 08/29/2024 [facility] Comment on above: Expected: 05/30/2024 (Approximate), Expi res: 08/29/2024 Start: 05-30-2024 End: 05-30-2024 Patient encounter procedure 05/30/2024 9:40 AM EST Office Visit [facility] [address] [place] [id number] Kameron Caruso MD [address] [place] [id number] 6 mo f/u [facility] [place] [facility] Comment on above: 6 mo f/u Start: 05-29-2024 Hemoglobin A1c measurement HbA1C [facility] Start: 05-16-2024 Creatinine measurement Serum Creatinine [facility] Start: 05-16-2024 Hepatitis B screening Urine Albumin:Creatinine Ratio [facility] Start: 05-16-2024 Hepatitis B surface antibody level LDL Cholesterol [facility] Start: 05-15-2024 Advance Directive Discussion Advance Directive Discussion [facility] Start: 01-14-2024 Influenza vaccination [facility] Start: 01-14-2024 [facility] Start: 01-04-2024 Glaucoma screening Dilated Retinal Exam [facility] Start: 01-04-2024 Hepatitis C antibody, confirmatory test Dilated Retinal Exam [facility] Start: 11-28-2023 End: 11-28-2023 Patient encounter procedure 11/28/2023 9:40 AM EDT Office Visit [facility] [place] [facility] [address] [place] [phone] Kameron Caruso MD [address] [place] [id number] 6 mo follow up [facility] [place] Comment on above: 6 mo follow up Start: 11-26-2023 ANNUAL PCP TEAM CHRONIC DISEASE VISIT ANNUAL PCP TEAM CHRONIC DISEASE VISIT [facility] Start: 11-26-2023 BP CONTROLLED (<130/80) BP CONTROLLED (<130/80) [facility] Start: 11-23-2023 Complete blood count Hemoglobin/Hematocrit [facility] Start: 11-23-2023 HEMOGLOBIN/HEMATOCRIT HEMOGLOBIN/HEMATOCRIT [facility] Start: 11-23-2023 Hepatitis B surface antibody level LDL CHOLESTEROL [facility] Start: 11-23-2023 SERUM CREATININE SERUM CREATININE [facility] Start: 11-14-2023 Hemoglobin A1c measurement [facility]C [facility] Start: 05-27-2023 ANNUAL PCP TEAM CHRONIC DISEASE VISIT ANNUAL PCP TEAM CHRONIC DISEASE VISIT [facility] Start: 05-27-2023 COVID-19 VACCINE (2 - Booster for Alyssa series) COVID-19 VACCINE (2 - Booster for Alyssa series) [facility] Comment on above: Postponed from 09/17/2020 (Declined at t his time) Start: 05-27-2023 HEPATITIS C SCREENING HEPATITIS C SCREENING [facility] Comment on above: Postponed from 1962 (Declined at t his time) Start: 05-25-2023 Hemoglobin A1c/Hemoglobin.total in Blood HBA1C [facility] Start: 05-19-2023 HEMOGLOBIN/HEMATOCRIT HEMOGLOBIN/HEMATOCRIT [facility] Start: 05-19-2023 Hepatitis B surface antibody level LDL CHOLESTEROL [facility] Start: 05-19-2023 SERUM CREATININE SERUM CREATININE [facility] Start: 05-15-2023 Advance Directive Discussion Advance Directive Discussion [facility] Start: 05-15-2023 Behavioral Health Screening Behavioral Health Screening [facility] Start: 03-02-2023 ANNUAL PCP TEAM CHRONIC DISEASE VISIT ANNUAL PCP TEAM CHRONIC DISEASE VISIT [facility] Start: 01-13-2023 Covid-19 Vaccine () Covid-19 Vaccine () [facility] Start: 01-13-2023 Influenza vaccination [facility] Start: 12-27-2022 Hepatitis C antibody, confirmatory test DILATED RETINAL EXAM [facility] Start: 11-24-2022 End: 01-24-2023 CBC panel - Blood by Automated count CBC Lab Routine Essential hypertension, benign Hypothyroidism, unspecified type Expected: 11/24/2022 (Approximate), Expires: 01/24/2023 [facility] Work Phone: Comment on above: Expected: 11/24/2022 (Approximate), Expi res: 01/24/2023 Start: 11-24-2022 End: 01-24-2023 Comprehensive metabolic 2000 panel - Serum or Plasma COMP METABOLIC PANEL Lab Routine Essential hypertension, benign Type 2 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, without long-term current use of insulin (HCC) Hyperlipidemia, unspecified hyperlipidemia type Expected: 11/24/2022 (Approximate), Expires: 01/24/2023 [facility] Work Phone: Comment on above: Expected: 11/24/2022 (Approximate), Expi res: 01/24/2023 Start: 11-24-2022 End: 01-24-2023 Hemoglobin A1c in Blood HGB A1C Lab Routine Type 2 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, without long-term current use of insulin (HCC) Expected: 11/24/2022 (Approximate), Expires: 01/24/2023 [facility] Work Phone: Comment on above: Expected: 11/24/2022 (Approximate), Expi res: 01/24/2023 Start: 11-24-2022 End: 01-24-2023 Lipid 1996 panel - Serum or Plasma LIPID PANEL BASIC Lab Routine Essential hypertension, benign Type 2 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, without long-term current use of insulin (HCC) Hyperlipidemia, unspecified hyperlipidemia type Expected: 11/24/2022 (Approximate), Expires: 01/24/2023 [facility] Work Phone: Comment on above: Expected: 11/24/2022 (Approximate), Expi res: 01/24/2023 Start: 11-24-2022 End: 01-24-2023 Thyrotropin [Units/volume] in Serum or Plasma TSH BLD Lab Routine Hypothyroidism, unspecified type Expected: 11/24/2022 (Approximate), Expires: 01/24/2023 [facility] Work Phone: Comment on above: Expected: 11/24/2022 (Approximate), Expi res: 01/24/2023 Start: 11-23-2022 3 comp foot exam completed DIABETIC FOOT EXAM [facility] Start: 11-23-2022 ANNUAL PCP TEAM CHRONIC DISEASE VISIT ANNUAL PCP TEAM CHRONIC DISEASE VISIT [facility] Start: 11-23-2022 Diabetic foot examination Diabetic Foot Exam [facility] Start: 11-20-2022 Hepatitis B screening URINE ALBUMIN:CREATININE RATIO [facility] Start: 11-20-2022 Hepatitis B surface antibody level LDL CHOLESTEROL [facility] Start: 11-20-2022 SERUM CREATININE SERUM CREATININE [facility] Start: 11-16-2022 Hemoglobin A1c/Hemoglobin.total in Blood HBA1C [facility] Start: 11-11-2022 Influenza vaccination INFLUENZA (#1) [facility] Comment on above: Postponed from 01/13/2022 (Declined at t his time) Start: 05-26-2022 End: 07-26-2022 CBC panel - Blood by Automated count CBC Lab Routine Essential hypertension, benign Stage 3b chronic kidney disease (HCC) Expected: 05/26/2022 (Approximate), Expires: 07/26/2022 [facility] Work Phone: Comment on above: Expected: 05/26/2022 (Approximate), Expi res: 07/26/2022 Start: 05-26-2022 End: 07-26-2022 Comprehensive metabolic 2000 panel - Serum or Plasma COMP METABOLIC PANEL Lab Routine Type 2 diabetes mellitus with diabetic chronic kidney disease, unspecified CKD stage, unspecified whether snf insulin use (HCC) Essential hypertension, benign Hyperlipidemia, unspecified hyperlipidemia type Stage 3b chronic kidney disease (HCC) Expected: 05/26/2022 (Approximate), Expires: 07/26/2022 [facility] Work Phone: Comment on above: Expected: 05/26/2022 (Approximate), Expi res: 07/26/2022 Start: 05-26-2022 End: 07-26-2022 Hemoglobin A1c in Blood HGB A1C Lab Routine Type 2 diabetes mellitus with diabetic chronic kidney disease, unspecified CKD stage, unspecified whether ad terminal makeup operator insulin use (HCC) Expected: 05/26/2022 (Approximate), Expires: 07/26/2022 [facility] Work Phone: Comment on above: Expected: 05/26/2022 (Approximate), Expi res: 07/26/2022 Start: 05-26-2022 End: 07-26-2022 Lipid 1996 panel - Serum or Plasma LIPID PANEL BASIC Lab Routine Essential hypertension, benign Hyperlipidemia, unspecified hyperlipidemia type Expected: 05/26/2022 (Approximate), Expires: 07/26/2022 [facility] Work Phone: Comment on above: Expected: 05/26/2022 (Approximate), Expi res: 07/26/2022 Start: 05-26-2022 End: 07-26-2022 Thyrotropin [Units/volume] in Serum or Plasma TSH BLD Lab Routine Hypothyroidism, unspecified type Expected: 05/26/2022 (Approximate), Expires: 07/26/2022 [facility] Work Phone: Comment on above: Expected: 05/26/2022 (Approximate), Expi res: 07/26/2022 Start: 05-23-2022 Hemoglobin A1c/Hemoglobin.total in Blood HBA1C [facility] Start: 05-18-2022 ANNUAL PCP TEAM CHRONIC DISEASE VISIT ANNUAL PCP TEAM CHRONIC DISEASE VISIT [facility] Start: 05-17-2022 Hepatitis B surface antibody level LDL CHOLESTEROL [facility] Start: 05-17-2022 SERUM CREATININE SERUM CREATININE [facility] Start: 05-15-2022 ADVANCE DIRECTIVE DISCUSSION ADVANCE DIRECTIVE DISCUSSION [facility] Start: 01-13-2022 Influenza vaccination [facility] Start: 01-11-2022 Hepatitis C antibody, confirmatory test DILATED RETINAL EXAM [facility] Start: 11-14-2021 Hemoglobin A1c/Hemoglobin.total in Blood HBA1C [facility] Start: 11-06-2021 Screening for malignant neoplasm of breast [facility] Start: 11-05-2021 3 comp foot exam completed DIABETIC FOOT EXAM [facility] Start: 11-05-2021 Adult depression screening assessment DEPRESSION SCREENING [facility] Start: 11-04-2021 Hepatitis B screening URINE ALBUMIN:CREATININE RATIO [facility] Start: 10-15-2021 Hepa vaccine adult dose for intramuscular use HEPATITIS A VACCINE ADULT IM Immunization/Injection Routine Need for vaccination Expected: 10/15/2021 [facility] Work Phone: Comment on above: Expected: 10/15/2021 Start: 10-15-2021 Tdap vaccine 7 yrs/> im TDAP VACCINE AGE 7+ IM Immunization/Injection Routine Need for vaccination Expected: 10/15/2021 [facility] Work Phone: Comment on above: Expected: 10/15/2021 Start: 05-15-2021 ADVANCE DIRECTIVE DISCUSSION ADVANCE DIRECTIVE DISCUSSION [facility] Start: 05-15-2021 DEPRESSION ASSESSMENT DEPRESSION ASSESSMENT [facility] Start: 10-23-2020 PNEUMOCOCCAL: 65+ (2 - PPSV23 if available, else PCV20) PNEUMOCOCCAL: 65+ (2 - PPSV23 if available, else PCV20) [facility] Start: 10-23-2020 PNEUMOCOCCAL: 65+ (2 - PPSV23 or PCV20) PNEUMOCOCCAL: 65+ (2 - PPSV23 or PCV20) [facility] Start: 10-16-2020 HEMOGLOBIN/HEMATOCRIT HEMOGLOBIN/HEMATOCRIT [facility] Start: 09-17-2020 COVID-19 VACCINE (2 - Booster for Alyssa series) COVID-19 VACCINE (2 - Booster for Alyssa series) [facility] Start: 12-19-2019 Pneumococcal vaccination [facility] Start: 12-19-2019 Pneumococcal Vaccine: 65+ (2 - PPSV23 or PCV20) Pneumococcal Vaccine: 65+ (2 - PPSV23 or PCV20) [facility] Start: 12-19-2019 PNEUMOCOCCAL: 65+ (2 - PPSV23 or PCV20) PNEUMOCOCCAL: 65+ (2 - PPSV23 or PCV20) [facility] Start: 11-08-2019 Screening for malignant neoplasm of colon [facility] Start: 10-26-2019 [facility] Start: 01-13-2019 Influenza vaccination Flu vaccine (#1) [place], [place] Start: 12-23-2018 Annual Wellness Visit (AWV) Annual Wellness Visit (AWV) [place] Start: 2009 DEXA (modify frequency per FRAX score) DEXA (modify frequency per FRAX score) [place] Start: 2009 Pneumococcal 65+ years Vaccine (1 of 1 - PPSV23) Pneumococcal 65+ years Vaccine (1 of 1 - PPSV23) [place] Start: 2009 Pneumococcal 65+ years Vaccine (1 of 2 - PCV13) Pneumococcal 65+ years Vaccine (1 of 2 - PCV13) [place] Start: 10-26-2007 Annual Wellness Visit (AWV) Annual Wellness Visit (AWV) [place] Start: 2004 Hepatitis B Vaccine (1 of 3 - Risk 3-dose series) Hepatitis B Vaccine (1 of 3 - Risk 3-dose series) [facility] Start: 2004 RSV Vaccine (1 - 1-dose 60+ series) RSV Vaccine (1 - 1-dose 60+ series) [facility] Start: 10-26-1999 Screening for osteoporosis DEXA (modify frequency per FRAX score) [place], [place] Start: 1994 Breast cancer screen Breast cancer screen [place], [place] Start: 1994 Colon cancer screen colonoscopy Colon cancer screen colonoscopy [place], [place] Start: 1994 Screening for malignant neoplasm of breast Breast cancer screen [place], [place] Start: 1994 Screening for malignant neoplasm of colon Colon cancer screen colonoscopy [place] Start: 1994 Shingles Vaccine (1 of 2) Shingles Vaccine (1 of 2) [place] Start: 1984 Lipid screen Lipid screen [place] Start: 1965 Screening for malignant neoplasm of cervix [facility] Start: 10-26-1963 DTaP/Tdap/Td vaccine (1 - Tdap) DTaP/Tdap/Td vaccine (1 - Tdap) [place] Start: 10-26-1963 Third diphtheria, tetanus and acellular pertussis (DTaP) vaccination [facility] Start: 10-26-1963 [facility]album[facility] Start: 1962 BP CONTROLLED (<130/80) BP CONTROLLED (<130/80) [facility] Start: 1962 HEPATITIS C SCREENING HEPATITIS C SCREENING [facility] Start: 1954 Lipid panel Lipid screen [place], [place] Start: 1944 Creatinine measurement Creatinine monitoring [place], [place] Start: 1944 Creatinine monitoring Creatinine monitoring [place], [place] Start: 1944 Hepatitis C screen Hepatitis C screen [place], [place] Start: 1944 Hepatitis C screening [facility] Start: 1944 Potassium monitoring Potassium monitoring [place], [place] Start: 1944 Screening for osteoporosis [facility] Start: 1944 Tetanus vaccination [facility] End: 01-09-2019 Blood glucose - POCT Blood glucose - POCT Point of Care Testing Routine One Time for 1 Occurrences starting 01/09/2019 until 01/09/2019 [place] Comment on above: One Time for 1 Occurrences starting 12/14 until 01/09/2019 ECG COMPLETE [facility] Comment on above: Ordered: 05/31/2024 End: 05-31-2025 Echocardiography ECHO Cardiology Routine Atrial fibrillation, unspecified type (HCC) 1 Occurrences starting 05/31/2024 until 05/31/2025 [facility] Comment on above: 1 Occurrences starting 05/31/2024 until 05/31/2025 Patient referral [facility] Work Phone: End: 01-09-2019 Pulse Oximetry Spot Check Pulse Oximetry Spot Check Respiratory Care Routine One Time for 1 Occurrences starting 01/09/2019 until 01/09/2019 [facility] [place] Comment on above: One Time for 1 Occurrences starting 12/14 until 01/09/2019 End: 08-02-2024 PV FLUOROSCOPY OR U [facility] End: 08-02-2024 Standard ECG [facility] [place] [facility] [place] Immunizations Immunization Date Immunization Notes Care Provider Paramjit hassan 07-23-2020 SARS-CoV-2 (COVID-19 ) Ad26 vaccine, recombinant ONEL HA DO [facility] Comment on above: Result Comment: 2024: [id number] 02-27-2020 influenza, high dose seasonal, preservative-free Kameron Caruso MD Work Phone: [facility] 02-27-2020 influenza virus vaccine, unspecified formulation Kameron Caruso MD Work Phone: [facility] 10-24-2019 pneumococcal conjuga te vaccine, 13 valent Kameron Caruso MD Work Phone: [facility] 10-24-2019 zoster vaccine recombinant Kameron Caruso MD Work Phone: [facility] 07-25-2019 influenza virus vaccine, unspecified formulation ONEL HA DO [facility] 07-25-2019 influenza, seasonal, injectable Kameron Caruso MD Work Phone: [facility] 07-25-2019 zoster vaccine recombinant Kameron Caruso MD Work Phone: [facility] 04-13-2015 influenza virus vaccine, unspecified formulation ONEL HA DO [facility] 05-01-2014 influenza virus vaccine, unspecified formulation ONEL HA DO [facility] 05-01-2014 influenza, high dose seasonal, preservative-free Kameron Caruso MD Work Phone: [facility] 02-22-2012 influenza virus vaccine, unspecified formulation Kameron Caruso MD Work Phone: [facility] Work Phone: 03-19-2007 influenza virus vaccine, unspecified formulation Kameron Caruso MD Work Phone: [facility] Work Phone: Payers Date Payer Category Payer Medicare [id number] 2024 Unknown [id number] 2024 Self-pay 2018 Medicare [employer]AGE [employer]AGE xxxxxxxxxxx 2018-Present [phone] [address] [place] [address] xxxxxxxxxxx [id number] 2018 Unknown [id number] 2013 Medicare [employer] [place] [id number] 2013-Present [phone] [address] [place] [address] [facility] [id number] 2013 Medicare [id number] 2013 Medicare (Managed Care) [id number] 2013 Medicare [id number] 1944 Unknown [id number] 1944 Unknown [id number] 1945 Unknown [id number] 2.16.840.1.796427.3.579.2 .594 1945 Unknown [id number] 2.16.840.1.608471.3.579.2 .594 1945 Unknown [id number] 2.16.840.1.685290.3.579.2 .627 Unknown [id number] 2.16840.1.977493.3.579.2 .462 Unknown [id number] 2.16.840.1.448118.3.579.2 .462 Unknown [id number] 2.16.840.1.141000.3.579.2 .462 Unknown [id number] 2.16.840.1.763033.3.579.2 .462 Unknown [id number] 2.16.840.1.037318.3.579.2 .462 Unknown [id number] 2.16.840.1.586780.3.579.2 .462 Unknown [id number] 2.16.840.1.552111.3.579.2 .462 Unknown [id number] 2.16.840.1.049399.3.579.2 .462 Unknown [id number] 2.16.840.1.253281.3.579.2 .462 Unknown [id number] 2.16.840.1.900807.3.579.2 .462 Unknown [id number] 2.16.840.1.729905.3.579.2 .462 Unknown [id number] 2.16.840.1.871522.3.579.2 .462 Unknown [id number] 2.840.1.097419.3.579.2 .462 Unknown [id number] 2.840.1.189098.3.579.2 .462 Unknown [id number] 2.840.1.793053.3.579.2 .462 Unknown [id number] 2.840.1.103274.3.579.2 .462 Unknown [id number] 2.840.1.592477.3.579.2 .462 Unknown [id number] 2..840.1.316875.3.579.2 .462 Unknown [id number] 2.840.1.957912.3.579.2 .462 Unknown [id number] 2.840.1.073351.3.579.2 .462 Unknown [id number] 2.840.1.243378.3.579.2 .462 Unknown [id number] 2.16.840.1.649853.3.579.2 .462 Unknown [id number] 2.16.840.1.029584.3.579.2 .462 Unknown [id number] 2.16.840.1.175493.3.579.2 .462 Unknown [id number] 2.16840.1.625422.3.579.2 .462 Unknown [id number] 2.16.840.1.610065.3.579.2 .462 Unknown [id number] 2.16840.1.538097.3.579.2 .462 Unknown [id number] 2.16.840.1.735745.3.579.2 .462 Unknown [id number] 2.840.1.166529.3.579.2 .462 Unknown [id number] 2.840.1.247699.3.579.2 .462 Unknown [id number] 2.840.1.495458.3.579.2 .462 Unknown [id number] 2.840.1.666520.3.579.2 .462 Unknown [id number] 2.840.1.382206.3.579.2 .462 Unknown [id number] 2.840.1.159477.3.579.2 .462 Unknown [id number] 2.840.1.482714.3.579.2 .462 Unknown [id number] 2.840.1.712190.3.579.2 .462 Unknown [id number] 2.840.1.969721.3.579.2 .462 Unknown [id number] 2.840.1.019116.3.579.2 .462 Unknown [id number] 2.840.1.733877.3.579.2 .462 Unknown [id number] 2.840.1.317549.3.579.2 .462 Unknown [id number] 2.840.1.190642.3.579.2 .462 Unknown [id number] 2.840.1.436103.3.579.2 .462 Unknown [id number] 2.840.1.357617.3.579.2 .462 Social History Date Type Detail Facility Start: 01-09-2019 End: 08-02-2024 Tobacco smoking status NHIS Never smoker [facility] Start: 01-09-2019 End: 11-25-2022 Alcohol intake Never [facility] Work Phone: Start: 12-24-2018 History SDOH Alcohol Frequency 1 [facility] Start: 1945 Sex Assigned At Not on file M [facility] Start: 10-16-2019 Alcohol intake Lifetime non-d hortencia (finding) [place] Exposure to SARS-CoV -2 (event) Unable to assess [place] Start: 05-18-2021 End: 06-26-2024 Alcohol intake Current non-drinker of alcohol (finding) [facility] Start: 11-13-2021 End: 03-02-2022 Exposure to SARS-CoV-2 (event) Not sure [facility] Start: 02-02-2011 End: 03-02-2022 Tobacco use and exposure Smokeless tobacco non-user [facility] Start: 11-25-2022 End: 11-28-2023 History of Social function [facility] Work Phone: Adult Depression Screening Assessment 0 [facility] Work Phone: Start: 06-22-2005 End: 08-02-2024 Sex Female (finding) [facility] Start: 1945 Sex Assigned At Female W [facility] Sexual Orientation [facility] Medical Equipment Procedure Code Equipment Code Equipment Original Text Equipment Identifier Dates [id number], [id number], [id number] Start: 11-30-2020 End: 04-08-2023 Comment on above: [...] 09-09-2024 Functional Status Room check performed Au camacho [facility] 09-09-2024 Functional Status [facility] 09-09-2024 Functional Status Skin Care Prev entative Intervention(s) heel(s)s elevated [facility] 09-08-2024 Functional Status [facility] 09-08-2024 Functional Status [facility] 09-06-2024 Functional Status 11pm-7am [facility] 09-06-2024 Functional Status Antiembolism S tocking On/Re-applied bilateral knee high [facility] 09-05-2024 Functional Status Oral Care Maximum wilfred tance [facility] 09-05-2024 Functional Status [facility] 09-05-2024 Functional Status Done [facility] 09-04-2024 Functional Status [facility] 09-04-2024 Functional Status [facility] 09-03-2024 Functional Status NPO Status Maintained A kai [facility] 09-03-2024 Functional Status None [facility] 09-03-2024 Functional Status [facility] 08-29-2024 Functional Status [facility] 08-29-2024 Functional Status [facility] 08-27-2024 Functional Status Orthotics, Dev ice Worn Per Schedule Yes [facility] 08-27-2024 Functional Status [facility] 08-26-2024 Functional Status [facility] 08-23-2024 Functional Status [facility] 08-23-2024 Functional Status Breakfast Percent 25 Gillian anny [facility] 08-20-2024 Functional Status [facility] 08-19-2024 Functional Status [facility] 08-16-2024 Functional Status Single level h ome, basement laundry [facility] 08-16-2024 Functional Status Outside Stairs Rail Rail on left going up [facility] 08-15-2024 Functional Status Sensory Defici ts Speech deficit [facility] 10-14-2014 Are you deaf, or do you have serious difficulty hearing No [facility] 10-14-2014 Are you blind, or do you have serious difficulty seeing, even when wearing glasses No [facility] 10-14-2014 Do you have serious difficulty walking or climbing stairs No [facility] 10-14-2014 Do you have difficul ty dressing or bathing No [facility] 10-14-2014 Because of a physica l, mental, or emotional condition, do you have difficulty doing errands alone such as visiting a physician's office or shopping No [facility] Mental Status Date Assessment Result Facility 09-09-2024 Mental Status Does not interact [facility] 09-08-2024 Mental Status [facility] gregory 09-08-2024 Mental Status [facility] 08-02-2024 Cognitive function Awake;Alert;F ollows Commands [facility] Work Phone: 10-14-2014 Because of a physica l, mental, or emotional condition, do you have serious difficulty concentrating, remembering, or making decisions No [facility] Clinical Notes 11-03-2020 to 10-02-2024 Note Date & Type Note Facility 10-02-2024 Evaluation note Diagnosis Onset Date Resolution Acute ischemic right MCA stroke acute October 02, 2024 9:29am Essential hypertension acute 2024 9:29am Hyperlipidemia acute October 02, 2024 9:29am Paroxysmal atrial fibrillation with RVR acute October 02, 2024 9:29am [facility] Work Phone: 1(634) 483-487004-28-2025 Note Discharge Instructions Thank you for allowing [facility] to assist you with your healthcare needs. The following is importantdischarge information regarding your hospital visit. Your Care Team KAMERON CARUSO MD Your Diagnosis CVA (cerebral vascular accident) Diabetes mellitus Dysphagia Hyperlipidemia Hypertension Osteoarthritis What to do next Follow Up Appointments Follow Up with MIGDALIA BANSAL MD Where:[facility] Additional Information: GI, No appointment needed until PEG is ready to be removed or concerns arise Follow Up with KAMERON CARUSO MD When:Within 3-7 days Where:[address] [place] [address]- Additional Information: Please schedule follow up PCP appointment for after discharge from SNF, Bring discharge instructions with you Follow Up with RIMMA POWERS MD When:10/08/2024 04:00 PM EDT Where:[facility] ([address], [place]) Additional Information: Neurosurgeon The Following Activity and [...] , standard right Seat cushion, 99 month(s), [facility] [id number], 09/02/24 8:22:00 EDT Transfer of Care Wound [...] depending on your insurance coverage. Check with your[employer] company about what is covered. Keeping follow-up [...] 08/04/2017 Document Revised: 05/04/2018 Document Reviewed: 08/04/2017 [employer] Patient Education 2020 [employer]. Additional Information VACCINATE! IT SAVES LIVES! Members of the community who have not yet received the COVID-19 vaccine and would like to receive it can visit one of [facility] vaccine clinics. There are many vaccine clinic locations within the [facility]. For locations and available times, please visit [email or web address].gov/. It is important to note that some COVID mobile vaccine clinics are held outdoors and may be canceled in rainy or stormy conditions. To learn more about pediatric vaccinations (ages 5-11), we invite you to visit the [facility] webpage. https://www.[facility].org/pages/9545-Sspat-Rihbqsvwdpe-Nyrvkngqhd-Crvkj-Gto stions.htmlTo learn more about the COVID-19 vaccine, we invite you to visit the CDC website for a list of frequently asked questions.https://www.cdc.gov/coronavirus/2019-ncov/vaccines/faq.html [facility] Patient Portal Access Instructions: Stay connected with your healthcare team and access your personal medical information anytime with the [facility] Patient Portal. Please follow the directions below to create your [facility] account: 1.Access the email account you provided upon registration to the hospital/physician office.2.Look for an invitation email from [facility].3.Open the email and access the invitation link: AcceptInvitation to [facility].4.Fill in the required richards to create your account. To access your account, visit [email or web address]. Click the blue button labeled "Access Patient [...] who you will allowto register on the [facility] Patient Portal for access to your information. You can also access the [facility] Patient Portal on the [facility]. Simply click on "Patient Portal" and then log into your account. If you would like to receive a full copy of your medical records, please contact the [facility] Medical Records Department by calling [phone], Monday through Monday between 8 a.m. and [...] Call your local pharmacy or go to http://bit.ly/5P8Bt1l to find one close to you.3.Make use of household items: Use cat litter or old coffee grounds to dispose medications if other options arenot available. Mix your drugs with these household products, seal them in an airtight container andthrow it into the garbage. Call [facility]: [phone] to be sure your drugs can be [...] aware that I should contact my doctor. 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 The following is importantdischarge information regarding your hospital visit. Your Care Team KAMERON CARUSO MD Your Diagnosis CVA (cerebral vascular accident) Diabetes mellitus Dysphagia Hyperlipidemia Hypertension Osteoarthritis What to do next Follow Up Appointments Follow Up with MIGDALIA BANSAL MD [facility] Additional Information: GI, No appointment needed until PEG is ready to be removed or concerns arise Follow Up with KAMERON CARUSO MD When:Within 3-7 days Where:[address] [place] [address]- Additional Information: Please schedule follow up PCP appointment for after discharge from SNF, Bring discharge instructions with you Follow Up with RIMMA POWERS MD When:10/08/2024 04:00 PM EDT Where[facility] ([address], [place]) Additional Information: Neurosurgeon The Following Activity and [...] , standard right Seat cushion, 99 month(s), [facility] [phone], 09/02/24 8:22:00 EDT Transfer of Care Wound [...] depending on your insurance coverage. Check with your[employer] company about what is covered. Keeping follow-up [...] 08/04/2017 Document Revised: 05/04/2018 Document Reviewed: 08/04/2017 [employer] Patient Education 2020 [employer] Additional Information VACCINATE! IT SAVES LIVES! Members of the community who have not yet received the COVID-19 vaccine and would like to receive it can visit one of [facility] vaccine clinics. There are many vaccine clinic locations within the [facility]. For locations and available times, please visit https://[email or web address].[place].gov/. It is important to note that some COVID mobile vaccine clinics are held outdoors and may be canceled in rainy or stormy conditions. To learn more about pediatric vaccinations (ages 5-11), we invite you to visit the [facility] webpage. https://www.[facility].org/pages/6429-Jmcyb-Iozazknnuew-Vefjcbaehf-Yruzo-Zky stions.htmlTo learn more about the COVID-19 vaccine, we invite you to visit the CDC website for a list of frequently asked questions.https://www.cdc.gov/coronavirus/2019-ncov/vaccines/faq.html [facility] Patient Portal Access Instructions: Stay connected with your healthcare team and access your personal medical information anytime with the [facility] Patient Portal. Please follow the directions below to create your [facility] account: 1.Access the email account you provided upon registration to the hospital/physician office.2.Look for an invitation email from [facility].3.Open the email and access the invitation link: AcceptInvitation to [facility].4.Fill in the required richards to create your account. To access your account, visit [employer]/Innographyt. Click the blue button labeled "Access Patient Portal" and then log in with the username and password that you created in the steps above. You will be able to view your test results, lab results, a summary of your visits, upcoming appointments and more. There is also a convenient messaging option where you can send secure messages to your DockPHPvider. In addition, you will have the ability to download any documents or summaries to your computer and/or send the information securely to a physician. Remember that your healthcare information is confidential, so carefully consider who you will allowto register on the [facility] Patient Portal for access to your information. You can also access the [facility] Patient Portal on the [facility] ry. Simply click on "Patient Portal" and then log into your account. If you would like to receive a full copy of your medical records, please contact the [facility] Medical Records Department by calling [phone], Monday through Monday between 8 a.m. and [...] Call your local pharmacy or go to http://Networks in Motion.Turbulenz/9N6Ap2h to find one close to you.3.Make use of household items: Use cat litter or old coffee grounds to dispose medications if other options arenot available. Mix your drugs with these household products, seal them in an airtight container andthrow it into the garbage. Call [facility]: [phone] to be sure your drugs can be [...] aware that I should contact my doctor. 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 She was [facility] stay 08/02 [...] self-care assistance needs decision made to request [facility]ci facility. Approval is requested. Patient was to [...] Ordered -- 08/15/24 17:18:00 EDT, AMI HEATON APRN-PER DIEM REGISTERED NURSE, [facility] per policy Physical Exam Vitals [...] oral tablet)1 tab(s) PEG tube every day. [id number] Microgram PEG tube once a day. metoprolol [...] a day. Follow Up Follow Up with MIGDALIA BANSAL MD [facility] Additional Information: GI, No appointment needed until PEG is ready to be removed or concerns arise Follow Up with KAMERON CARUSO MD When:Within 3-7 days Where:[address] [place] [address]- Additional Information: Please schedule follow up PCP appointment for after discharge from SNF, Bring discharge instructions with you Follow Up with RIMMA POWERS MD When:10/08/2024 04:00 PM EDT Where[facility] ([address], [place]) Additional Information: Neurosurgeon Follow Up Appointments No qualifying data available. Follow Up Labs/Studies Discharge Labs No Follow-up Labs Discharge Studies No Follow-up Studies Discharge Diet No qualifying data available. Discharge Activity No qualifying data available. Condition on Discharge Stable Discharge Disposition [facility] facility Information Provided To Patient and family Time Spent Greater than 35 minutes Digitally Signed by ONEL HA DO on 09/09/2024 01:[address]28-2025 Nurse Progress note Nursing GG Entered On: 09/09/2024 10:55 EDT Performed On: 09/09/2024 10:55 EDT by Abigail Rodas RN Nursing GG's OT GG Grid Eating : Not Completed Abigail Rodas RN - 09/09/2024 10:55 EDT Digitally Signed by Abigail Rodas RN on 09/09/2024 10:[address] AM [address]27-2025 Nurse Progress note Nursing GG Entered On: 09/08/2024 17:39 EDT Performed On: 09/08/2024 17:39 EDT by Rob Alarcon RN Nursing GG's OT GG Grid Eating : Not Completed Oral Hygiene : Not Completed Toilet Hygiene : Substantial/Maximal Assistance Toilet Transfer : Substantial/Maximal Assistance Rob Alarcon RN - 09/08/2024 17:39 EDT Digitally Signed by Rob Alarcon RN on 09/08/2024 05:[address]27-2025 Nurse Progress note Pt had 250ml residual, 12:30pm bolus was held! Digitally Signed by Rob Alarcon RN on 09/08/2024 12:[address]25-2025 Physical medicine and rehab Progress note [...] topical 87 mg-788 mg/g oint 60g 1 ry, Topical, qHS donepezil 5 mg tablet 5 mg 1 tab(s), Oral, qHS emollients (Eucerin) lotion 1 appl, Topical, BID glimepiride 2 mg Tablet 4 mg 2 tab(s), PEG, BID insulin lispro 100 units/mL Soln (3 mL) Give 0-6 units/dose, Subcutaneous, TIDAC levothyroxine 75 mcg tablet 75 mcg 1 tab(s), PEG, qDay menthol-zinc oxide topical ointment 4oz 1 ry, Topical, amhs metformin 500 mg Tablet 500 [...] Rate64(SEP 05 16:46)64(SEP 05 16:46)85(SEP 05 09:40) YLV567(SEP 05 16:36)138(SEP 05 16:36)H 158(SEP 05 09:52) [...] Repeat swallow test were performed continue Philippe Freemichael protocol and order motor exercises and Glucerna 1.2 bolus 6 times a day with water flush. Ritalin initiated to improve alertness. Work minimize fall risk. Case discussed with spouse. Plan transition to skilled [place] with home care services. Therapy notes reviewed [...] both accurate and complete Digitally Signed by ONEL HA DO on 09/06/2024 12:34 PM [facility] [id number] Hospital Discharge instructions Patient Education 09/05/2024 14:15:00 [...] depending on your insurance coverage. Check with your[employer] company about what is covered. Keeping follow-up [...] 08/04/2017 Document Revised: 05/04/2018 Document Reviewed: 08/04/2017 [employer] Patient Education 2020 [employer]. Follow Up Care 08/15/2024 08:51:25 With:RIMMA POWERS MD Address: [facility] ([address], [place]) When:10/08/2024 16:00:00 Comments:Neurosurgeon With:MIGDALIA BANSAL MD Address: [facility] When: Unknown Comments:GI, No appointment needed until PEG is ready to be removed or concerns arise With:KAMERON CARUSO MD Address: [address] [place] [address]- When:3-7 days Comments:Please schedule follow up PCP appointment for after discharge from SNF, Bring discharge instructions with you [facility] Warnern 04-24-2025 Note Subjective Patient seen this [...] less than 3 seconds. Ongoing hemiparesis VITALS YtwcgiSymlYPSdgkgVCWsK8MCS6QcpbNb(kg) 09/05 09:5236.3--483357JB 09/05 09:40----85----RA 09/04 23:3236.6--213627TC 09/04 21:2436.5--418550UH 09/04 16:01----71----RA 24 Hr Tmax: 36.6 at [...] Start: 08/16/24 21:00:00 EDT, Dose = 1 ry, Topical, qHS, Apply to: Heels, Ointment, 08/16/24 [...] Start: 08/16/24 7:20:00 EDT, Dose = 1 ry, Topical, amhs, Apply to: Bilateral buttock/coccyx, Ointment, [...] None Problems (6) CVA (cerebral vascular accident) (002340060) Diabetes mellitus (998956779) Dysphagia (91910448) Hyperlipidemia (76523605) Hypertension (7009335967) Osteoarthritis (2766682312) ASSESSMENT/PLAN: Right basal ganglia hemorrhage, status post thrombectomy with revascularization follow-up appointment with neurosurgery on 10/08. Continue work with physical and Occupational Therapy with goal to return home at discharge. reports that referrals have been sent to fci facilities yesterday. Currently has 4 options in [...] CATHERINE NEWMAN APRN-GARRETT on 09/05/2024 04:55 PM [facility] [id number] Physical medicine and rehab Progress note Subjective [...] area Neuro: Left upper extremity hemiparesis VITALS KfzjodCwznBTWmmtwTLUuX4YFD6DexbPp(kg) 09/04 23:3236.6--062731JA 09/04 21:2436.5--682221VY 09/04 16:01----72----RA 09/04 12:10--------97RA 09/04 10:5435.9--176716CA 24 Hr Tmax: 36.6 at 09/04 23:32 [...] Start: 08/16/24 21:00:00 EDT, Dose = 1 ry, Topical, qHS, Apply to: Heels, Ointment, 08/16/24 [...] Start: 08/16/24 7:20:00 EDT, Dose = 1 ry, Topical, amhs, Apply to: Bilateral buttock/coccyx, Ointment, [...] < 110, 1st dose location: [facility], 1, 08/15/24 17:09:00 EDT Active [...] None Problems (6) CVA (cerebral vascular accident) (100580342) Diabetes mellitus (158045016) Dysphagia (45242558) Hyperlipidemia (83845804) Hypertension (4538033568) Osteoarthritis (6637390164) ASSESSMENT/PLAN: Acute right basal ganglia hemorrhage with [...] NANDO HUTTON DO on 09/05/2024 10:12 AM [facility] [id number] Physical medicine and rehab Progress note Rehab [...] PEG, Daily. balsam [place]-castor oil topical: 1 ry, Topical, qHS. docusate: 100 mg, 10 mL, [...] qDay, PRN: Constipation. menthol-zinc oxide topical: 1 ry, Topical, amhs. metFORMIN: 500 mg, 1 tab(s), [...] Rate64(SEP 03 15:52)64(SEP 03 15:52)90(SEP 03 08:28) MNQ409(SEP 04 05:38)112(SEP 04 05:38)127(SEP 03 08:00) DBP70(SEP [...] both accurate and complete. Digitally Signed by ONEL HA DO on 09/04/2024 11:55 AM [facility] [id number] Note Subjective Patient states she is doing [...] area Neuro: Left upper extremity hemiparesis VITALS BlxrneHtauWOJkxqiUQKhK3HUE8LzorOr(kg) 09/03 21:4136.4--085858OB 09/03 15:52----63----RA 09/03 08:46 09/03 08:28----90---- 09/03 08:0036.4--168515NE 24 Hr Tmax: 36.4 at 09/03 21:41 [...] tab(s), PEG, Daily, 08/15/24 17:09:00 EDT balsam [place]-castor oil topical (Venelex 788 mg-87 mg/g topical ointment) Start: 08/16/24 21:00:00 EDT, Dose = 1 ry, Topical, qHS, Apply to: Heels, Ointment, 08/16/24 [...] Start: 08/16/24 7:20:00 EDT, Dose = 1 ry, Topical, amhs, Apply to: Bilateral buttock/coccyx, Ointment, [...] < 110, 1st dose location: [facility], , 08/15/24 17:09:00 EDT oxybutynin [...] 2 minutes, REPEAT x1., 1st dose location: [place] [address], 08/15/24 1... glucose (Dextrose 50% IV Push) [...] None Problems (6) CVA (cerebral vascular accident) (098861967) Diabetes mellitus (598012179) Dysphagia (37457353) Hyperlipidemia (75931636) Hypertension (7651491063) Osteoarthritis (0087008666) ASSESSMENT/PLAN: Acute right basal ganglia hemorrhage with [...] NANDO HUTTON DO on 09/05/2024 08:57 AM [facility] [id number] Note Subjective Patient states that she is [...] area Neuro: Left upper extremity hemiparesis VITALS KtsvxmTlqgDNIxzelJXSnA6FDE8ZqquJx(kg) 09/03 00:2636.3--396513NO 09/02 21:5136.2--799475WB 09/02 16:56----88--98RA 09/02 10:40 RA 09/02 09:0936.0--603384ME 24 Hr Tmax: 37.0 at 09/02 05:55 [...] Start: 08/16/24 21:00:00 EDT, Dose = 1 ry, Topical, qHS, Apply to: Heels, Ointment, 08/16/24 [...] Start: 08/16/24 7:20:00 EDT, Dose = 1 ry, Topical, amhs, Apply to: Bilateral buttock/coccyx, Ointment, 08/16/24 7:20:00 EDT metFORMIN (metFORMIN 500 mg oral tablet (IR)) Start: 08/22/24 10:02:00 EDT, Dose = 500 mg, = 1 tab(s), PEG, qDayM, 08/22/24 10:02:00 EDT metoprolol (metoprolol tartrate 50 mg oral tablet) Start: 08/15/24 17:09:00 EDT, Dose = 50 mg, = 1 tab(s), PEG, BID, Hold if SBP (mmHg) < 110, 1st dose location: [facility], 1, 08/15/24 17:09:00 EDT oxybutynin (oxybutynin [...] 2 minutes, REPEAT x1., 1st dose location: [facility], 0, 08/15/24 1... glucose (Dextrose 50% [...] None Problems (6) CVA (cerebral vascular accident) ([id number]) Diabetes mellitus ([id number]) Dysphagia (60396285) Hyperlipidemia (76725016) Hypertension (5631114072) Osteoarthritis ([id number]) ASSESSMENT/PLAN: Acute right basal ganglia hemorrhage with [...] NANDO HUTTON DO on 09/05/2024 08:57 AM [id number] Note* Exam Date Time Procedure Performing Provider Status 09/02/24 2:[address] Head or Brain w/o Contrast Brenda MCCLELLAN MD; Auth (Verified) [id number] ORIGINAL HISTORY: Lethargy COMPARISON: No TECHNIQUE: Routine [...] Sign Date: 09/02/2024 3:10:44 PM Ordering Provider: ONEL Scott [id number] Telephone encounter Note* Telephone Encounter - Fouzia Renteria LPN - 08/30/2024 10:09 AM EDT Marya with [facility] notified. [facility]04-18-2025 Miscellaneous Notes* Telephone Encounter - Fouzia Renteria LPN - 08/30/2024 10:09 AM EDT Marya with [facility] notified. * Telephone Encounter - Mj Glover APRN.CNP - 08/30/2024 9:19 AM EDT Please let know that Dr. Caruso's team will follow orders. Okay to proceed. Mj Glover APRN.CNP * Telephone Encounter - Jaiden Paulino RN - 08/30/2024 9:07 AM EDT Marya- [facility] reports patient was in [facility] with dx: stroke, and transferred to [facility]. [facility] home with [facility] SN PT OT [facility] & [facility]. Asking if pcp agreeable to follow for HHC. Please phone Marya with verbal: [phone] documented in this encounterMer[facility]04-[facility]-2025 Telephone encounter Note * Telephone Encounter - Mj Glover APRN.CNP - 08/30/2024 9:19 AM EDT Please let HH know that Dr. Caruso's team will follow HH orders. Okay to proceed. Mj Glover APRN.CNP [facility]04-18-2025 Telephone encounter Note* Telephone Encounter - Jaiden Paulino RN - 08/30/2024 9:07 AM EDT Marya- [facility] reports patient was in [facility] with dx: stroke, and transferred to [facility]. Pt will be discharged from [facility] on 09/07/24 to home with [facility] SN PT OT ST & [facility]. Asking if pcp agreeable to follow for HHC. Please phone Marya with verbal: [phone] [facility]04-14-2025 Note REFERRING PHYSICIAN: Onel Ha DO. CONSULTING PSYCHOLOGIST: Matthew Gibson, PhD. REASON FOR REFERRAL: Neuropsychological exam. HISTORY OF PRESENT ILLNESS: Ms. Acuna is a 78-year-old right-handed white female admitted to [facility] from [facility] on 08/15/2024 after developing left-sided [...] mild concussions suffered after a career in [employer]. No residual deficits reported. No other BUTTERMAKER CONTINUOUS CHURN injuries or illnesses. MENTAL HEALTH HISTORY: No [...] of NPO. and Mrs. Acuna live in [place]. 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 She has a high school diploma from her hometown in [place], [place]. TEST RESULTS: I used the Cognistat, [...] be determined. MATTHEW GIBSON, PhD LESLIE/SHANNON JOB#: [id number] DICTATION ID#: [id number] Digitally Signed by MATTHEW GIBSON PhD on 08/27/2024 08:21 AM [id number] Note* Exam Date Time Procedure Performing Provider Status 08/25/24 1:46 PM XR Hand and Wrist 6 Views Left Buck DUNNE VERONIQUEBRUCE Chang ; Auth (Verified) [id number] ORIGINAL EXAMINATION: 3 XRAY VIEWS OF THE [...] 08/25/2024 2:27:26 PM Ordering Provider: JACKLYN LINDSEY [address]13-2025 Note* Exam Date Time Procedure Performing Provider Status 08/25/24 1:45 PM XR Shoulder Minimum 2 Views Left JAMAR DUNNE DO; Auth (Verified) [id number] ORIGINAL EXAMINATION: TWO XRAY VIEWS OF THE [...] 08/25/2024 2:26:45 PM Ordering Provider: JACKLYN Scott [id number] Note* Exam Date Time Procedure Performing Provider Status 08/25/24 1:43 PM XR Humerus Minimum 2 Views Left LAMBERT DUNNEBRUCE Chang ; Auth (Verified) [id number] ORIGINAL EXAMINATION: TWO XRAY VIEWS OF THE [...] 08/25/2024 2:26:11 PM Ordering Provider: JACKLYN Scott [id number] Note* Exam Date Time Procedure Performing Provider Status 08/18/24 3:08 PM XR Chest 1 View Contributor_system, FUJ I; Auth (Verified) [id number] ORIGINAL EXAMINATION: ONE XRAY VIEW OF THE [...] Plan noteExtracted from: Title:Clinical Document Author:EZEQUIEL HUSTON RN-PER DIEM REGISTERED NURSE Date:08/16/24 Acute Inpatient Rehab Histor y and Physical Date of Service: 08/16/2024 Date of Admission: 08/15/2024 Attending Physician: Dr. [facility] 1.1 left body involvement, right brain stroke Etiologic Diagnosis Hemorrhagic infarct involving right basal ganglia, mass effect with effacement of right lateral ventricle, tiny infarct in right cerebellum History of Present Illness 78-year-old female noted to home in inpatient rehab from [facility] stay 08/02 - 08/15 who [...] feedings. Patient deemed medically stable transferred to [facility] for physical and occupational [...] with spouse, first- floor set up. Primary Finance Administrator: Self. Safe place to go: Yes. Lives [...] Rate80(AUG 15 20:06)80(AUG 15 20:06)80(AUG 15 20:06) LHI138(AUG 16 00:03)128(AUG 16 00:03)140(AUG 15 17:47) DBP76(AUG 16 00:03)76(AUG 16 00:03)80(AUG 15 17:47) 36hr Labs 08/15 1805 Blood Glucose, Qiwamufed392J Blood Glucose, Tvttdyfsy389G Blood Glucose TSee Flowsheet Assessment/Plan Debility and [...] and it is both accurate and complete. [facility] 04-04-2025 Physical medicine and rehab Consult note INPATIENT REHAB MEDICAL CONSULT DATE OF ADMISSION: 08/16/2024 CC: Acute right basal hemorrhage HISTORY OF PRESENT ILLNESS: This is a 78-year-old female admitted to [facility] from [facility] stay 08/02 [...] was deemed medically stable and transferred to [facility] for physical and occasional [...] Rate80(AUG 15 20:06)80(AUG 15 20:06)80(AUG 15 20:06) SDV289(AUG 16 00:03)128(AUG 16 00:03)140(AUG 15 17:47) DBP76(AUG [...] reviewed. 36hr Labs / 1805 Blood Glucose, Hjkmhqbse161J Blood Glucose, Rrfssvzwb432M Blood Glucose TSee Flowsheet ASSESSMENT AND PLAN: [...] will follow during acute rehabilitation stay at [facility] Inpatient Rehab Unit with the [...] by CATHERINE NEWMAN on 08/17/2024 04:53 PM [facility] GarciaYmuvqlqv77-83-7789 Physical medicine and rehab History and physical [...] noted to home in inpatient rehab from [facility] stay 08/02 -08/15 who is [...] feedings. Patient deemed medically stable transferred to [facility] unit for physical and occupational [...] with spouse, first- floor set up. Primary Finance Administrator: Self. Safe place to go: Yes. Lives [...] Rate80(AUG 15 20:06)80(AUG 15 20:06)80(AUG 15 20:06) ETD989(AUG 16 00:03)128(AUG 16 00:03)140(AUG 15 17:47) DBP76(AUG 16 00:03)76(AUG 16 00:03)80(AUG 15 17:47) 36hr Labs 08/15 1805 Blood Glucose, Zjsswdpck355V Blood Glucose, Gusdzzoii978B Blood Glucose TSee Flowsheet Assessment/Plan Debility and [...] by EZEQUIEL HUSTON on 08/22/2024 05:17 AM [facility] CenterRcnkrepz04-14-8053 Miscellaneous Notes* Nursing Notes - Robson Steel [...] pacing over x3-5 sessions Outcome: Ongoing Problem: PRINCIPAL TECHNICAL WRITER - Cognition Goal: Orientation Log - Patient [...] pacing over x3-5 sessions Outcome: Ongoing Problem: PRINCIPAL TECHNICAL WRITER - Cognition Goal: Orientation Log - Patient [...] rounds tomorrow. * Plan of Care - Migdalia Mccabe MD - 08/09/2024 6:45 PM EDT [...] for buried bumper syndrome. - If used ad terminal makeup operator, initial PEG should be changed in 6-12 months depending on tube condition. - No plans for repeat outpatient EGD at this time based on clinical status Migdalia Mccabe MD Division of Gastroenterology, Hepatology, and Nutrition Clinical Fellow PGY-4 Pager: [phone] * Plan of Care - Manisha Cheema [...] what the specific medication was. Daughter, Keagan [phone] would be able to answer questions. Catherine [...] 08/07/2024 5:00 PM EDT On admission to [facility], from another [facility] inpatient unit a dual [...] oropharyngeal swallow function to most appropriately guide PRINCIPAL TECHNICAL WRITER plan of care Outcome: Met Goal: Bolus [...] readiness for diet advancement Outcome: Met Problem: PRINCIPAL TECHNICAL WRITER - Cognition Goal: Orientation Log - Patient [...] better assess deficits and most appropriately guide PRINCIPAL TECHNICAL WRITER plan of care Outcome: Met Goal: Attention: [...] of Care: 1. Diet: NPO. Advancement per team/PRINCIPAL TECHNICAL WRITER recommendation 2. Ordered TF: Glucerna 1.5 @ [...] readiness for diet advancement Outcome: Ongoing Problem: PRINCIPAL TECHNICAL WRITER - Cognition Goal: Orientation Log - Patient [...] better assess deficits and most appropriately guide PRINCIPAL TECHNICAL WRITER plan of care Outcome: Ongoing * Nursing Notes - Aniyah Torre RN - 08/02/2024 6:13 PM EDT On admission to [facility], from [place] a dual RN initial assessment [...] change from previous assessment. Pt transferred to [facility] [place] via cart accompanied by Denae ENRIQUEZ. T on room air, tele and pulse ox. * Nursing Notes - Sophie Jenkins RN - 08/02/2024 3:44 PM EDT Report received from JA Barboza. * Op Note - Prema Schuler MD - 08/02/2024 3:29 PM EDT Operative [...] we proceeded under emergency consent. SURGEON(S): Prema Schuler MD ORE DRESSING ENGINEER(S): None ANESTHESIA: Monitored anesthesia care DESCRIPTION OF [...] TICI 2b revascularization as described above. Prema Schuler MD * Brief Op Note - Prema Schuler MD - 08/02/2024 3:26 PM EDT Lindsay Acuna ([id number]) PRE OPERATIVE DIAGNOSIS Cerebral infarction due to [...] aspiration SURGEON Surgeons and Role: * Prema Schuler MD - Primary ANESTHESIOLOGIST Anesthesiologist: Tameka Ruth MD ASSISTANT DIRECTOR OF RESIDENCE LIFE: Bebo Barboza APRN-ASSISTANT DIRECTOR OF RESIDENCE LIFE SURGICAL STAFF Equity Research Associate: Rachell Ruffin RN Building Energy Consultant: Paulina Muñiz; Radha Morales COMPLICATIONS None ESTIMATED BLOOD LOSS Minimal SPECIMENS No specimen sent * No specimens in log * Prema Schuler MD August 02, 2024 3:26 PM documented in this encounterU [facility]04[facility] History of Present illness Narrative* OWEN Benavides - 08/15/2024 9:01 AM EDT Care Management Discharge Note Selected Continued Care - Admitted Since 08/02/2024 Destination Coordination complete. Service Provider Services Address Phone Fax Patient Preferred [place] [phone] -- -- Internal Comment last updated by OWEN Benavides 08/15/2024 0901 Report fax: [phone] Transport Request Mode of Transfer: [facility] Name of Discharge Transport Company: [employer] Discharge Transport ETA: 08/15/2024 @ 1030 Patient medically stable for discharge per physician/medical team. Pt has neurology appointment scheduled. Pt/ to schedule appointment with PCP. 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 [facility] Clinical Care Leader * OWEN Benavides - 08/14/2024 3:17 PM EDT Placement Plan Expected Discharge Date: 08/15/2024 Referred Level of Care: IPR Current Referrals and Status 1. [facility] Garcia-rosie IPR obtained precertification for Pt starting tomorrow. Pt is set-up to leave via ambulance tomorrow at 1030. CM updated Pt's by phone. IPR will provide CM with the best phone and fax numbersfor RN report tomorrow morning. [facility] Clinical Care Leader * aMrybeth Ayoub - 08/14/2024 2:51 PM EDT Care Management Progress Note Transportation for discharge arranged Mode of Transfer: (P) S Name of Discharge [facility] ETA: (P) 08/15/2024 @ 1030 Pick-up from [facility] 1032/A Destination [facility] [address] [place] [address] WOEN Morrell Clinical Care Leader Chief Radiology [phone] * Jazzy Aguiar - 08/14/2024 9:47 AM [...] position Mobility Assessment/Intervention: Supine to Sit Mobility Viola Level: Supine->Sit: moderate assist (50% patient effort) Physical Assist: Supine->Sit: 2 person assist Bed Features/Set-up: Supine->Sit: Head of bed elevated, Use of bed rail Skilled Rationale: Verbal cues, Tactile cues, Hand placement, Positioning, Technique of activity Skilled Intervention/Details: Supine->Sit: Cues for technique of transfer and pt needing increased assistance for managing legs and trunk to EOB positioning Transfer Assessment/Intervention: Sit to Stand Transfer Viola Level: Sit->Stand: moderate assist (50% patient effort) [...] hand held support Stand to Sit Transfer Viola Level: Stand->Sit: moderate assist (50% patient effort) Physical Assist: Stand->Sit: 2 person assist Assistive Device: Stand->Sit: gait belt, hand held assist Skilled Rationale: Verbal cues, Tactile cues, Hand placement, Positioning, Controlled descent for sitting Skilled Intervention/Details: Stand->Sit: Cues for positioning with BSC and recliner, pt provided bilat hand held support and needing increased support for managing a controlled descent Bed-Chair Transfer Viola Level: Bed<->Chair: maximum assist (25% patient effort) [...] managing L side during transfer Toilet Transfer Viola Level: Toilet: moderate assist (50% patient effort) [...] upright gaze when standing Outcome Score(s): CURRENT [facility] Daily Activity Inpatient Short Form Putting on/Taking Off Lower Body Clothin - Total Assistance Bathin - A Lot of Assistance Toiletin - Total Assistance Putting on/Taking Off Upper Body Clothin - A Little Assistance Groomin - A Little Assistance Eatin - Total Assistance CURRENT [facility] Activity Raw Score: 11 CURRENT -[facility] Activity Functional Limitation/Modifier: 70.42% Currently [...] person, Oriented to place, Oriented to situation ("[facility]" "hospital" "May" "2024" "stroke") Following Commands: Follows [...] blocking Mobility Assessment/Intervention: Supine to Sit Mobility Viola Level: Supine->Sit: moderate assist (50% patient effort) [...] sitting) Transfer Assessment/Intervention: Sit to Stand Transfer Viola Level: Sit->Stand: moderate assist (50% patient effort) Physical Assist: Sit->Stand: 2 person assist Assistive Device: Sit->Stand: gait belt Skilled Rationale: Arm in arm, Patellar block, Ischial assist, Facilitate anterior shift, Full extension to upright positioning/posture, Finding/maintaining midline positioning Skilled Intervention/Details: Sit->Stand: repeat cues to avoid significant L lean with improvement last standing. x1 from EOB, x2 from BSC Stand to Sit Transfer Viola Level: Stand->Sit: moderate assist (50% patient effort) Physical Assist: Stand->Sit: 2 person assist Assistive Device: Stand->Sit: gait belt Skilled Rationale: Arm in arm, Controlled descent for sitting Skilled Intervention/Details: Stand->Sit: last trial assisted R hand to recliner arm rest and ongoing cues for wt shift to R Bed-Chair Transfer Viola Level: Bed<->Chair: maximum assist (25% patient effort) [...] Mobility Assessment/Intervention: Stairs Assessment/Intervention: Outcome Score(s): CURRENT [facility] Basic Mobility Inpatient Short Form Turning over in bed: 2 - A Lot of Assistance Moving from lying on back to sittin - Total Assistance Moving to and from bed to chair: 1 - Total Assistance Sitting/standing from chair: 2 - A Lot of Assistance Walk in hospital room: 1 - Total Assistance Climbing 3-5 steps with a railin - Total Assistance CURRENT [facility] Mobility Raw Score: 8 CURRENT [facility] Mobility Functional Limitation: 86.62% Impaired in Basic Mobility Interventions: Intervention 1 Intervention Name: [facility] supine and sitting Details: education L attention [...] 10 Treating Therapist: Shaina Rosales PT, DPT [id number] 08/14/2024 Additional Details: PT Co-Eval/Treatment Information Co-evaluation/co-treatment [...] on the below outcome measures/assessment score(s) and PRINCIPAL TECHNICAL WRITER clinicaljudgment, discharge destination recommendation is: IPR Barriers to discharge home: 1:1 assist needed for IADL's including medication management and finances Supporting factors for discharge setting: Impaired swallow function limiting nutritional status andsafety with oral intake, Impaired cognitive skills limiting safety/insight Acute PRINCIPAL TECHNICAL WRITER Outcomes Tracking Communicate basic wants and needs?: [...] independent carry over. Strong family support. Ongoing PRINCIPAL TECHNICAL WRITER s indicated. Subjective information: Alert, present. SO referenced his notes from yesterday and reportedcarry over of exercises yesterday. Patient with zero recall Pain: Nonverbal indicator not present Precautions: Patient Safety Communication Prior to Visit: Nursing Lines/Tubes/Drains (Rehab Status): Telemetry, Tube feed Existing Precautions/Restrictions: fall Respiratory Status: O2 Sat (%): 96 % (08/14 0711) O2 Device: room air (08/14 0947) Acute PRINCIPAL TECHNICAL WRITER Goals Plan of Care by Tanja Cason PRINCIPAL TECHNICAL WRITER at 08/14/2024 2:42 PM Version 1 of [...] RoM to achieve technique. Outcome: Ongoing Problem: PRINCIPAL TECHNICAL WRITER - Cognition Goal: Orientation Log - Patient [...] next session: 08/14 - ongoing exercises, education PRINCIPAL TECHNICAL WRITER Outcomes: FOIS 2 Speech Language Pathologist: RIKI [...] of session: none altered Needs in reach. PRINCIPAL TECHNICAL WRITER Evaluation and Treatment Time Speech Therapy - Individual 93205: 14 Swallowing Dysfunction Treatment 90750: 14 Upon discontinuation of Acute Care Speech [...] on the below outcome measures/assessment score(s) and PRINCIPAL TECHNICAL WRITER clinicaljudgment, discharge destination recommendation is: Inpatient Rehab Facility Barriers to discharge home: 1:1 assist needed for IADL's including medication management and finances Supporting factors for discharge setting: Impaired swallow function limiting nutritional status andsafety with oral intake, Impaired cognitive skills limiting safety/insight Acute PRINCIPAL TECHNICAL WRITER Outcomes Tracking Communicate basic wants and needs?: [...] O2 Device: room air (08/13 710) Acute PRINCIPAL TECHNICAL WRITER Goals Plan of Care by Tanja Cason PRINCIPAL TECHNICAL WRITER at 08/13/2024 11:10 AM Version 1 of [...] 10 reps this session. Outcome: Ongoing Problem: PRINCIPAL TECHNICAL WRITER - Cognition Goal: Orientation Log - Patient [...] considerations: Cognition Patient Instruction/Education comments: Role of PRINCIPAL TECHNICAL WRITER, presence and normalized frustration with cognitive-communicative impairments. Focused on memory this date and that patient does not recall education so perseverative questions are normal. Reviewed intermittent silent aspiration from MBS last weekand ongoing signs of dysphagia this session, will plan to coordinate timing for repeat instrumentalwith care team Plan for next session: 08/13 -fair PRINCIPAL TECHNICAL WRITER Outcomes: FOIS 2 Speech Language Pathologist: RIKI [...] of session: none altered Needs in reach. PRINCIPAL TECHNICAL WRITER Evaluation and Treatment Time Speech Therapy - Individual 35610: 12 Swallowing Dysfunction Treatment 07745: 13 Upon discontinuation of Acute Care Speech Therapy Services or patient discharge from the hospital this note represents the current Speech Therapy Discharge Summary * OWEN Benavides - 08/12/2024 3:21 PM EDT Placement Plan Expected Discharge Date: 08/14/2024 Referred Level of Care: IPR Barriers: Medical Readiness & Precertification Current Referrals and Status 1. [facility] Garcia-accepted IPR started precertification today. BULMARO [facility] Clinical Care Leader * Jazzy Aguiar - 08/12/2024 10:46 AM [...] sinkside Mobility Assessment/Intervention: Supine to Sit Mobility Viola Level: Supine->Sit: moderate assist (50% patient effort) [...] positioning Transfer Assessment/Intervention: Sit to Stand Transfer Viola Level: Sit->Stand: maximum assist (25% patient effort) [...] maintaining upright posture Stand to Sit Transfer Viola Level: Stand->Sit: maximum assist (25% patient effort) Physical Assist: Stand->Sit: 2 person assist Assistive Device: Stand->Sit: gait belt, hand held assist Skilled Rationale: Verbal cues, Tactile cues, Hand placement, Positioning, Controlled descent for sitting Skilled Intervention/Details: Stand->Sit: Cues for positioning with recliner and using BUEs to help with appropriate positoining of hips in chair Bed-Chair Transfer Viola Level: Bed<->Chair: maximum assist (25% patient effort) Physical Assist: Bed<->Chair: 2 person assist Assistive Device: Bed<->Chair: gait belt Skilled Rationale: Verbal cues, Tactile cues, Hand placement, Positioning, Technique of activity Skilled Intervention/Details: Bed<->Chair: x1 from EOB to recliner on R. Pt needing increasedsupport for managing L side and sequencing steps for appropriate positioning with recliner Outcome Score(s): CURRENT -[facility] Daily Activity Inpatient Short Form Putting on/Taking Off Lower Body Clothin - Total Assistance Bathin - A Lot of Assistance Toiletin - Total Assistance Putting on/Taking Off Upper Body Clothin - A Lot of Assistance Groomin - A Lot of Assistance Eatin - Total Assistance CURRENT [facility] Activity Raw Score: 9 CURRENT -[facility] Activity Functional Limitation/Modifier: 79.59% Currently [...] Time Self Care/Home Management (ADLs) Time Entry: Neuromuscular Re-Education Time Entry: 14 Treating Therapist: [...] presented to [facility] and was seen on Telestroke, NIHSS 12. [...] goal TF volume. Pt last assessed by PRINCIPAL TECHNICAL WRITER 08/08 with recommendations for NPO. S/p PEG [...] chips. Will also increase free water flushes. PRINCIPAL TECHNICAL WRITER to see pt tomorrow. Nutrition Focused Physical Exam: Nutrition Focused Physical Exam Completed?: completed Subcutaneous Fat Loss: Orbital Region (Orbital Fat Pads): WDL Cheek Region (Buccal Fat Pads): WDL Upper Arm Region (Triceps): WDL Thoracic and Lumbar Region (Ribs, Lower Back, Midaxillary Line): WDL Muscle Wasting: Yazidi Region (Temporalis Muscle): deferred (lac over eyebrow) [...] lb) 06/26/24 78.9 kg (174 lb)-[facility] 05/31/24 79 kg (174 lb 2.6 oz)-[facility] 11/28/23 80.6 kg (177 lb 9.6 oz)-[facility] 09/29/23 84 kg (185 lb)-[facility] meds reviewed: Scheduled: Reviewed, includes insulin, [...] Needs: Weight Used: 61 kg (IBW) EEN: 4153-1807 kcal/day (25-30 kcal/kg) EPN: 73-92 g/day (1.2-1.5 g/kg) EFN: 1830 mL/day (30 mL/kg) or per primary team Malnutrition Statement: Does the patient meet criteria for malnutrition: No *Based on The Academy and ASPEN Indicators to Diagnose Malnutrition (AAIM) criteria (2012) Tianna Murray RD, LD, [facility] Pager #[phone] * Katie Ramos, PT - 08/12/2024 10:22 [...] standing. Mobility Assessment/Intervention: Supine to Sit Mobility Viola Level: Supine->Sit: moderate assist (50% patient effort) Physical Assist: Supine->Sit: 2 person assist Bed Features/Set-up: Supine->Sit: Head of bed elevated Skilled Rationale: Verbal cues, Tactile cues, Hand placement, Technique of activity Skilled Intervention/Details: Supine->Sit: verbal/tactile cues for instruction on transfer technique and mod A x 2 for LE and trunk management. Transfer Assessment/Intervention: Sit to Stand Transfer Viola Level: Sit->Stand: maximum assist (25% patient effort) Physical Assist: Sit->Stand: 2 person assist Assistive Device: Sit->Stand: gait belt Skilled Rationale: Verbal cues, Tactile cues, Hand placement, Technique of activity Skilled Intervention/Details: Sit->Stand: x2 trials with verbal/tactile cues for instruction on transfer technique, hand placement, and blocking left knee. Bed-Chair Transfer Viola Level: Bed<->Chair: maximum assist (25% patient effort) Physical Assist: Bed<->Chair: 2 person assist Assistive Device: Bed<->Chair: gait belt Skilled Rationale: Verbal cues, Tactile cues, Hand placement, Technique of activity Skilled Intervention/Details: Bed<->Chair: x1 trial from EOB to chair to the right. Verbal/tactile cues for instruction on transfer technqiue, blocking left knee. Outcome Score(s): CURRENT [facility] Basic Mobility Inpatient Short Form Turning over in bed: 2 - A Lot of Assistance Moving from lying on back to sittin - Total Assistance Moving to and from bed to chair: 1 - Total Assistance Sitting/standing from chair: 1 - Total Assistance Walk in hospital room: 1 - Total Assistance Climbing 3-5 steps with a railin - Total Assistance CURRENT [facility] Mobility Raw Score: 7 CURRENT [facility] Mobility Functional Limitation: 92.36% Impaired in Basic Mobility Interventions: Intervention 1 Intervention Name: LORENA DELEONE therapeutic exercises to promote LE strengthening required [...] the current Physical Therapy Discharge Summary. * Radah Gr, CATSHOVEL DRIVER-PER DIEM REGISTERED NURSE - 08/11/2024 7:15 AM EDT NEUROVASCULAR STROKE SERVICE Daily Progress Note IDENTIFYING INFORMATION Lindsay Acuna MR# [id number] 08/11/2024 HISTORY OF PRESENT ILLNESS Lindsay Acuna is a 78 y.o. female with PMH significant for CAD, HTN, HLD, T2DM, Afib (on Eliquis, although patient reports she has not been taking it) who presents with L hemiplegia, slurred speech. LKW 0915 on 08/02, later found down with slurred speech and L hemiplegia. She presented to [facility] and was seen on Telestroke, NIHSS 12. [...] 2b revascularization. INTERVAL HISTORY 08/05: [place] [facility]: [...] (home dose), give mag , NPO at [place] for FABIAN PHYSICAL EXAM Gen: awake, alert [...] today 08/11 -Rate controlled on metoprolol Dysphagia: -PRINCIPAL TECHNICAL WRITER following -NPO, DHT + TF -Failed MBS [...] Lindsay Acuna will likely be discharged to [facility] when medically ready Radha Gr, CATSHOVEL DRIVER-PER DIEM REGISTERED NURSE 08/11/2024 10:17 AM VITAL SIGNS Temp: [97.2 [...] for specific therapeutic recommendations, please see the tool inspector report of the speech pathologist. Examination performed [...] and neurological examinations as recorded by the CAN REPAIRER repeated and confirmed. I have personally reviewed [...] tooth. Blood cx unremarkable. * Radha Gr, CATSHOVEL DRIVER-PER DIEM REGISTERED NURSE - 08/10/2024 7:14 AM EDT NEUROVASCULAR STROKE SERVICE Daily Progress Note IDENTIFYING INFORMATION Lindsay Acuna MR# [id number] 08/10/2024 HISTORY OF PRESENT ILLNESS Lindsay Acuna is a 78 y.o. female with PMH significant for CAD, HTN, HLD, T2DM, Afib (on Eliquis, although patient reports she has not been taking it) who presents with L hemiplegia, slurred speech. LKW 0915 on 08/02, later found down with slurred speech and L hemiplegia. She presented to [facility] and was seen on Telestroke, NIHSS 12. [...] 2b revascularization. INTERVAL HISTORY 08/05: Transfer to [place] [facility] tomorrow 08/06: Failed MBS. Increased lopressor. [...] as above -Rate controlled on metoprolol Dysphagia: -PRINCIPAL TECHNICAL WRITER following -NPO, DHT + TF -Failed MBS [...] Lindsay Acuna will likely be discharged to [facility] when medically ready Radha Gr APRN-PER DIEM REGISTERED NURSE 08/10/2024 7:14 AM VITAL SIGNS Temp: [97.4 [...] for specific therapeutic recommendations, please see the tool inspector report of the speech pathologist. Examination performed [...] skin and external bumper. - If used ad terminal makeup operator, PEG should be changed every 3-6 months [...] Hepatology, and Nutrition Clinical Fellow PGY-4 Pager: [phone] For follow up questions regarding this patient 7am to 5pm, contact the IBD consults fellow or RY on [employer]. [facility]--> Internal Medicine--> Gastroenterology, Hepatology, & Nutrition--> IBD Consult Service Fel Day OR IBD Consult Service RY Day For urgent/stat calls or new consults 5pm to 7am or all day on the weekend, please page the on-callGI fellow on [email or web address]. [facility]--> Internal Medicine--> Gastroenterology, Hepatology, & Nutrition--> 1st Call Fel Miriam OR STAT/NEW GI Cons Wknd Fel Day Cosigned by Niru Koch MD at 08/10/2024 2:11 PM EDT * OWEN Benavides - 08/09/2024 3:34 PM EDT Placement Plan Expected Discharge Date: Referred Level of Care: IPR Barriers: Medical Readiness and Precertification Current Referrals and Status 1. [facility] I[facility]-accepted IPR will start precertification on Monday after updated therapy notes are in. For Case Management assistance for the weekend, please contact CM for assistance as needed (8:00am-4:30pm) BASH: [phone] Maria: [phone] Johan: [phone] Ross: [phone] For Social Work assistance for the weekend, please contact SW for assistance as needed (8:00am - 4:30pm): BASH: [phone] Maria: [phone] Johan: [phone] Ross: [phone] * Radha Gr APRN-GARRETT - 08/09/2024 8:07 AM EDT NEUROVASCULAR STROKE SERVICE Daily Progress Note IDENTIFYING INFORMATION Lindsay Acuna MR# [id number] 08/09/2024 HISTORY OF PRESENT ILLNESS Lindsay Acuna is a 78 y.o. female with PMH significant for CAD, HTN, HLD, T2DM, Afib (on Eliquis, although patient reports she has not been taking it) who presents with L hemiplegia, slurred speech. LKW 0915 on 08/02, later found down with slurred speech and L hemiplegia. She presented to [facility] and was seen on Telestroke, NIHSS 12. [...] 2b revascularization. INTERVAL HISTORY 08/05: [place] [facility] tomorrow 08/06: Failed MBS. Increased lopressor. [...] AND PLAN Neuro: Acute R MCA stroke / R M1 occlusion s/p TICI 2b revascularization [...] as above -Rate controlled on metoprolol Dysphagia: -PRINCIPAL TECHNICAL WRITER following -NPO, DHT + TF -Failed MBS [...] Lindsay Acuna will likely be discharged to [facility] when medically ready Radha Gr, CATSHOVEL DRIVER-PER DIEM REGISTERED NURSE 08/09/2024 8:07 AM VITAL SIGNS Temp: [97.3 [...] for specific therapeutic recommendations, please see the tool inspector report of the speech pathologist. Examination performed [...] 08/12/2024 10:46 AM EDT * Shelton Steel, PRINCIPAL TECHNICAL WRITER - 08/08/2024 1:10 PM EDT Acute Care [...] on the below outcome measures/assessment score(s) and PRINCIPAL TECHNICAL WRITER clinicaljudgment, discharge destination recommendation is: Inpatient Rehab Facility Acute PRINCIPAL TECHNICAL WRITER Outcomes Tracking Communicate basic wants and needs?: [...] pressions and introduction to effortful swallow exercise. PRINCIPAL TECHNICAL WRITER provided education regarding recommendation of NPO given [...] constraints (transport arrived for pt's CT scan). PRINCIPAL TECHNICAL WRITER will follow as able. Subjective information: Patient upright in chair, at bedside. Agreeable to PRINCIPAL TECHNICAL WRITER session. Pain: General Pain Documentation (Adult, OB, [...] room air Flow (L/min): [3] 3 Acute PRINCIPAL TECHNICAL WRITER Goals Plan of Care by RIKI Penaloza [...] phsyiology, risks of aspiration pneumonia). Educated regarding PRINCIPAL TECHNICAL WRITER role in swallow rehab and future POC Plan for next session: 08/06: cog tx and dysphagia exercises PRINCIPAL TECHNICAL WRITER Outcomes: FOIS: 1 Speech Language Pathologist: RIKI Penaloza Time In: 1310 Time Out: 1330 Total Visit Time: 20 minutes Total Treatment Time (skilled, billable minutes): 20 minutes Non-billable assistance during session: NA Assisted by during session: NA PPE used during patient interaction: gloves Patient location/status at end of session: chair Patient alarms at end of session: none altered Needs in reach. PRINCIPAL TECHNICAL WRITER Evaluation and Treatment Time Swallowing Dysfunction Treatment 72467: 20 Upon discontinuation of Acute Care Speech [...] feedback Mobility Assessment/Intervention: Supine to Sit Mobility Viola Level: Supine->Sit: moderate assist (50% patient effort) Physical Assist: Supine->Sit: 2 person assist Bed Features/Set-up: Supine->Sit: Use of bed rail, Head of bed elevated Skilled Rationale: Sequencing, Verbal cues, Hand placement, Positioning Skilled Intervention/Details: Supine->Sit: increased time/cues Transfer Assessment/Intervention: Sit to Stand Transfer Viola Level: Sit->Stand: moderate assist (50% patient effort) Physical Assist: Sit->Stand: 2 person assist Assistive Device: Sit->Stand: gait belt, hand held assist Skilled Rationale: Positioning, Sequencing, Hand placement, Verbal cues Skilled Intervention/Details: Sit->Stand: Pt educated in sit to stand transfers x 2 attempts, one from EOB and one from chair Bed-Chair Transfer Viola Level: Bed<->Chair: maximum assist (25% patient effort) [...] Mobility Assessment/Intervention: Stairs Assessment/Intervention: Outcome Score(s): CURRENT [facility] Basic Mobility Inpatient Short Form Turning over in bed: 2 - A Lot of Assistance Moving from lying on back to sittin - A Lot of Assistance Moving to and from bed to chair: 1 - Total Assistance Sitting/standing from chair: 1 - Total Assistance Walk in hospital room: 1 - Total Assistance Climbing 3-5 steps with a railin - Total Assistance CURRENT [facility] Mobility Raw Score: 8 CURRENT [facility] Mobility Functional Limitation: 86.62% Impaired in Basic [...] positioning Mobility Assessment/Intervention: Supine to Sit Mobility Viola Level: Supine->Sit: moderate assist (50% patient effort) [...] positioning Transfer Assessment/Intervention: Sit to Stand Transfer Viola Level: Sit->Stand: moderate assist (50% patient effort) Physical Assist: Sit->Stand: 2 person assist Assistive Device: Sit->Stand: gait belt, hand held assist Skilled Rationale: Verbal cues, Tactile cues, Hand placement, Positioning, Technique of activity Skilled Intervention/Details: Sit->Stand: x1 from EOB, x1 from recliner. Cues for technique and assuming an upright posture once standing Stand to Sit Transfer Viola Level: Stand->Sit: moderate assist (50% patient effort) Physical Assist: Stand->Sit: 2 person assist Assistive Device: Stand->Sit: gait belt, hand held assist Skilled Rationale: Verbal cues, Tactile cues, Hand placement, Positioning, Controlled descent for sitting Skilled Intervention/Details: Stand->Sit: Cues for positioning with recliner and using arms to help with controlled descent into chair Bed-Chair Transfer Viola Level: Bed<->Chair: maximum assist (25% patient effort) [...] appropriately position with chair. Outcome Score(s): CURRENT [facility] Daily Activity Inpatient Short Form Putting on/Taking Off Lower Body Clothin - Total Assistance Bathin - A Lot of Assistance Toiletin - Total Assistance Putting on/Taking Off Upper Body Clothin - A Lot of Assistance Groomin - A Lot of Assistance Eatin - Total Assistance CURRENT [facility] Activity Raw Score: 9 CURRENT [facility] Activity Functional Limitation/Modifier: 79.59% Currently Impaired in [...] clinical decisions and judgements. * Bella Cardenas, CATSHOVEL DRIVER-PER DIEM REGISTERED NURSE - 08/08/2024 7:21 AM EDT NEUROVASCULAR STROKE SERVICE Daily Progress Note IDENTIFYING INFORMATION Lindsay Acuna MR# [id number] 08/08/2024 HISTORY OF PRESENT ILLNESS Lindsay Acuna is a 78 y.o. female with PMH significant for CAD, HTN, HLD, T2DM, Afib (on Eliquis, although patient reports she has not been taking it) who presents with L hemiplegia, slurred speech. LKW 0915 on 08/02, later found down with slurred speech and L hemiplegia. She presented to [facility] and was seen on Telestroke, NIHSS 12. [...] 2b revascularization. INTERVAL HISTORY 08/05: [place] [facility] tomorrow 08/06: Failed MBS. Increased lopressor. [...] as above -Rate controlled on metoprolol Dysphagia: -PRINCIPAL TECHNICAL WRITER following -NPO, DHT + TF -Failed MBS [...] Lindsay Acuna will likely be discharged to [facility] when medically ready Bella Cardenas, CATSHOVEL DRIVER-PER DIEM REGISTERED NURSE 08/08/2024 2:53 PM VITAL SIGNS Temp: [97.4 [...] for specific therapeutic recommendations, please see the tool inspector report of the speech pathologist. Examination performed [...] bed availability Current Referrals and Status 1. [facility] notified SW student confirming after call with Patient's daughter that [facility] is facility of choice. Facility [...] patient and patient's spouse are agreeable to [facility] as facility of choice, and Gisela is agreeable to [facility] as well. Updated SW student. Simin Resendez RN, BSN Clinical Aircraft Machinist [facility] * Chela Hannon - 08/07/2024 2:08 PM EDT Placement Plan [employer] [facility] [employer] met with Patient and spouse at bedside to discuss facility choice. Spouse mentioned that [facility] was first choice, though [employer] [facility] provided update that [facility] could not accept after reviewing. [employer] [facility] reviewed other IPR options with Spouse, who reports that [facility] would be facility of choice. Spouse discussed with daughter Gisela via phone, who is in agreement but requestsa return call. [employer] [facility] notified CCM. Chela Snyder Social Work Student Available by Secure Chat Cosigned by OWEN Keller at 08/07/2024 2:11 PM EDT * Bella Hwang Theresa, CATSHOVEL DRIVER-PER DIEM REGISTERED NURSE - 08/07/2024 6:54 AM EDT NEUROVASCULAR STROKE SERVICE Daily Progress Note IDENTIFYING INFORMATION Lindsay Acuna MR# [id number] 08/07/2024 HISTORY OF PRESENT ILLNESS Lindsay Acuna is a 78 y.o. female with PMH significant for CAD, HTN, HLD, T2DM, Afib (on Eliquis, although patient reports she has not been taking it) who presents with L hemiplegia, slurred speech. LKW 0915 on 08/02, later found down with slurred speech and L hemiplegia. She presented to [facility] and was seen on Telestroke, NIHSS 12. [...] 2b revascularization. INTERVAL HISTORY 08/05: [place] [facility] tomorrow 08/06: Failed MBS. Increased lopressor. [...] as above -Rate controlled on metoprolol Dysphagia: -PRINCIPAL TECHNICAL WRITER following -NPO, DHT + TF -Failed MBS [...] home levothyroxine 75 mcg daily\\ Disposition: Lindsay Acuan will likely be discharged to [facility] when medically ready Bella Cardenas, CATSHOVEL DRIVER-PER DIEM REGISTERED NURSE 08/07/2024 3:06 PM VITAL SIGNS Temp: [97.5 [...] for specific therapeutic recommendations, please see the tool inspector report of the speech pathologist. Examination performed [...] authorization, transportation Current Referrals and Status 1. [facility]: Available 2. [facility]: Available 3. [facility]: Available (pending PEG or diet and their MD requested aspirin started before discharge) 4. [facility]: Available 5. [facility]: Unavailable, out of network 6. [facility] Inpatient Rehab: Unavailable, Incorrect Level of Care 7. [facility] IPR: shaheed Met with patient and patient's spouse, Ike, at bedside to provide choice list. Ike called patient's daughter, Gisela Acuna, to discuss as well. Gisela requested information on private pay at [facility], messaged [facility] liaison and then provided information to Gisela. Gisela requested CM sendreferral to [facility] IPR. Plan for family to review choice list FREDRICK camargo/LUCIO team will update patient and family regarding [facility] IPR response tomorrow morning. This CM's contact information provided to Ike Acuna and Gisela Acuna for any further questions. Simin Resendez RN, BSN Clinical Aircraft Machinist [facility] * Florinda [...] minutes Mobility Assessment/Intervention: Supine to Sit Mobility Viola Level: Supine->Sit: moderate assist (50% patient effort) Bed Features/Set-up: Supine->Sit: Head of bed elevated, Use of bed rail Skilled Rationale: Positioning, Sequencing Skilled Intervention/Details: Supine->Sit: step by step cues for sequencingg Transfer Assessment/Intervention: Sit to Stand Transfer Viola Level: Sit->Stand: moderate assist (50% patient effort) [...] left UE during transitional movements Bed-Chair Transfer Viola Level: Bed<->Chair: moderate assist (50% patient effort) Physical Assist: Bed<->Chair: 2 person assist Assistive Device: Bed<->Chair: gait belt, hand held assist Skilled Rationale: Positioning, Hand placement, Verbal cues, Sequencing Skilled Intervention/Details: Bed<->Chair: Pt educated in bed to C commode transfer x 2-3 steps with cues for LE sequencing, left LE weakness requiring intermittent blocking Gait/Functional Mobility Assessment/Intervention: Gait Assessment Viola Level: Gait: (mod/max) Physical Assist: Gait: 2 [...] prevent buckling. Stairs Assessment/Intervention: Outcome Score(s): CURRENT [facility] Basic Mobility Inpatient Short Form Turning over [...] with a railin - Total Assistance CURRENT [facility] Mobility Raw Score: 9 CURRENT [facility] Mobility Functional Limitation: 81.38% Impaired in Basic [...] Physical Therapy Discharge Summary. * Nimesh Balderrama [facility] - 08/06/2024 1:42 PM EDT Department of Pharmacy Admission Medication Reconciliation Note Patient: Lindsay Acuna Room/Bed: 1043/A I have reviewed the patient's home medication list with the following sources Dispense Report. The home medication list status is: complete. All changes to the home medication list have been updated in [facility]. Updated APPRENTICE Med List: Prior to Admission Medications [...] with any further questions. Name: Nimesh Balderrama [facility] Phone #: [phone] Date/Time: 08/06/2024 1:42 PM Time Spent: 10 [...] noted Mobility Assessment/Intervention: Supine to Sit Mobility Viola Level: Supine->Sit: moderate assist (50% patient effort) [...] completion. Transfer Assessment/Intervention: Sit to Stand Transfer Viola Level: Sit->Stand: (x 1 trial from EOB [...] and kyphotic posture. Stand to Sit Transfer Viola Level: Stand->Sit: moderate assist (50% patient effort) Assistive Device: Stand->Sit: gait belt (Arm and arm assist.) Skilled Rationale: Cues for increased safety, Initiation and execution of task, Technique of activity, Controlled descent for sitting, Ischial assist, Arm in arm, Tactile cues, Verbal cues, Hand placement, Sequencing, Positioning Bed-Chair Transfer Viola Level: Bed<->Chair: moderate assist (50% patient effort) [...] with left LE). Functional Mobility: Functional Mobility Viola Level: Functional Mobility/Gait: (Moderate-max assistance) Physical Assist: [...] overall decreased insight/awareness intodeficits. Outcome Score(s): CURRENT [facility] Daily Activity Inpatient Short Form Putting on/Taking Off Lower Body Clothin - Total Assistance Bathin - A Lot of Assistance Toiletin - Total Assistance Putting on/Taking Off Upper Body Clothin - A Lot of Assistance Groomin - A Lot of Assistance Eatin - Total Assistance ([place]obhoff.) CURRENT [facility] Activity Raw Score: 9 CURRENT [facility] Activity Functional Limitation/Modifier: 79.59% Currently Impaired in [...] Occupational Therapy Discharge Summary. * Taran Traore, CATSHOVEL DRIVER-PER DIEM REGISTERED NURSE - 08/06/2024 7:49 AM EDT NEUROVASCULAR STROKE SERVICE Daily Progress Note IDENTIFYING INFORMATION Lindsay Acuna MR# [id number] 08/06/2024 HISTORY OF PRESENT ILLNESS Lindsay Acuna is a 78 y.o. female with PMH significant for CAD, HTN, HLD, T2DM, Afib (on Eliquis, although patient reports she has not been taking it) who presents with L hemiplegia, slurred speech. LKW 0915 on 08/02, later found down with slurred speech and L hemiplegia. She presented to [facility] and was seen on Telestroke, NIHSS 12. [...] 2b revascularization. INTERVAL HISTORY 08/05: [place] [facility]06: [...] as above -Rate controlled on metoprolol Dysphagia: -PRINCIPAL TECHNICAL WRITER following -NPO, DHT + TF -Failed MBS [...] Lindsay Acuna will likely be discharged to [facility] when medically ready Taran Traore APRN-PER DIEM REGISTERED NURSE 08/06/2024 1:43 PM VITAL SIGNS Temp: [96.5 [...] for specific therapeutic recommendations, please see the tool inspector report of the speech pathologist. Examination performed [...] Progress Note IDENTIFYING INFORMATION Lindsay Acuna MR# [id number] 08/05/2024 HISTORY OF PRESENT ILLNESS Lindsay Acuna is a 78 y.o. female with PMH significant for CAD, HTN, HLD, T2DM, Afib (on Eliquis, although patient reports she has not been taking it) who presents with L hemiplegia, slurred speech. LKW 0915 on 3/21, later found down with slurred speech and L hemiplegia. She presented to [facility] and was seen on Telestroke, NIHSS 12. [...] 2b revascularization. INTERVAL HISTORY 08/05: Transfer to [facility] tomorrow PHYSICAL EXAM Gen: awake, alert, NAD [...] as above -Rate controlled on metoprolol Dysphagia: -PRINCIPAL TECHNICAL WRITER following -NPO, DHT + TF -MBS tomorrow HLD, POA: -Atorvastatin 40 mg daily CAD, POA: -Hold ASA for 7 days due to ICH T2DM, POA: -SSI regular + accuchecks CKD Stage 3A, POA: Baseline Cr 1.3 -Avoid nephrotoxins, monitor Hypothyroidism, POA: -Continue home levothyroxine 75 mcg daily Disposition: Lindsay Acuna will likely be discharged to [facility] when medically ready Taran Traore APRN-PER DIEM REGISTERED NURSE 08/05/2024 2:19 PM VITAL SIGNS Temp: [97.8 [...] on the below outcome measures/assessment score(s), and PRINCIPAL TECHNICAL WRITER clinical judgment, discharge destination recommendation is: Pending [...] Impaired cognitive skills limiting saf ety/insight Acute PRINCIPAL TECHNICAL WRITER Outcomes Tracking Communicate basic wants and needs?: [...] oropharyngeal swallow function to most appropriately guide PRINCIPAL TECHNICAL WRITER plan of care. Of note, patient is [...] Currentdeficits impact her safety and independence. Ongoing PRINCIPAL TECHNICAL WRITER services are warranted. Subjective information: Awake, alert, [...] O2 Device: room air (08/05 0830) Acute PRINCIPAL TECHNICAL WRITER Goals Plan of Care by Queta Gardner PRINCIPAL TECHNICAL WRITER at 08/05/2024 11:49 AM Version 1 of [...] oropharyngeal swallow function to most appropriately guide PRINCIPAL TECHNICAL WRITER plan of care Outcome: Ongoing Problem: PRINCIPAL TECHNICAL WRITER - Cognition Goal: Orientation Log - Patient [...] better assess deficits and most appropriately guide PRINCIPAL TECHNICAL WRITER plan of care Outcome: Met Tx: Noted [...] for next session: 08/05: Good candidate; FERNANDO PRINCIPAL TECHNICAL WRITER Outcomes: PRINCIPAL TECHNICAL WRITER Outcomes / Standardized Measures Score The Orientation [...] wrist restraints, RN aware Needs in reach. PRINCIPAL TECHNICAL WRITER Evaluation and Treatment Time Speech Therapy - Individual 47443: 8 Swallowing Dysfunction Treatment 77697: 9 Upon discontinuation of Acute Care Speech Therapy Services or patient discharge from the hospital this note represents the current Speech Therapy Discharge Summary * Chela Hannon - 08/05/2024 10:37 AM EDT Placement Plan Expected Discharge Date: TBD Referred Level of Care: IPR Barriers: medical stability, bed availability Current Referrals and Status 1. [facility]- sent; denied (Patient is OON) 2. [facility]- sent 3. [facility]- sent 4. [facility]- sent 5. [facility] [place]- sent 6. [facility] FAST FOOD FRY COOK met with Patient and Spouse at bedside to discuss discharge planning. Patient and spouse were agreeable to SW visit. FAST FOOD FRY COOK discussed therapy recommendations with Spouse for Patient to go to IPR at discharge. Spouse is agreeable to a referral being sent to [facility]. Referral sent. Spouse requested to speak to SW about assessing Patient for dementia. FAST FOOD FRY COOK and bedside RN encouragedSpouse to discuss with Patient's outpatient provider. Chela Snyder, Social Work Student Available by Secure Chat Cosigned by OWEN Keller at 08/05/2024 11:22 AM EDT * Savana Madhu, RD - 08/05/2024 10:10 AM EDT NUTRITION ASSESSMENT Nutrition Recommendations and Plan of Care: 1. Diet: NPO. Advancement per team/PRINCIPAL TECHNICAL WRITER recommendation 2. Ordered TF: Glucerna 1.5 @ goal rate 55mL/h x 22 hours (holding for synthroid) -Free water per team, suggest minimum of 30ml q 4hr for tube patency 3. Monitor TF/PO intake, bowel function, skin integrity, weight change, lab values. 4. RD to follow up Lindsay Armand is a 78 y.o. female with [...] time. Per team, pt failed bedside swallow. PRINCIPAL TECHNICAL WRITER consulted for swallow eval. Past History No [...] lb) 06/26/24 78.9 kg (174 lb)-[facility] 05/31/24 79 kg (174 lb 2.6 oz)-[facility] 11/28/23 80.6 kg (177 lb 9.6 oz)-[facility] 09/29/23 84 kg (185 lb)-[facility] Pt without significant weight change APPRENTICE. Tmax: 97.8*F BP: (!) 173/94 Pulse [...] proximal second portion of the duodenum. BM: APPRENTICE Urine: 725mL Skin: Raghu Score: 13 Active Wounds: Wound Sheath Site 08/02/24 1500 Right Radial (3) Wound Abrasion 08/02/24 2109 Left;Upper Face (3) Edema- None Estimated Nutrition Needs: Based on IBW (61.4kg) Estimated Kcals Needs: 9308-1969 kcals (25-30kcals/kg) Estimated Pro Needs: 74-92g Pro (1.2-1.5g/kg) Estimated Fluid Needs: Per MD Nutrition Focused Physical Exam Completed?: completed Subcutaneous Fat Loss: Orbital Region (Orbital Fat Pads): WDL Cheek Region (Buccal Fat Pads): WDL Upper Arm Region (Triceps): WDL Thoracic and Lumbar Region (Ribs, Lower Back, Midaxillary Line): WDL Muscle Wasting: Yazidi Region (Temporalis Muscle): deferred (lac over eyebrow) [...] (AAIM) criteria (2012) ELVIRA Ho, RD, LD, [facility] Pager: [phone] * Rashad Rg MD - 08/05/2024 9:42 AM EDT 78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 Patient is critically ill due to acute stroke with hemorrhagic conversion requiring intensive neurologic/hemodynamic monitoring intervention to prevent decline. Total critical care time 31min. * Shanna Russ, JASIEL-PER DIEM REGISTERED NURSE - 08/05/2024 7:20 AM EDT NEUROCRITICAL CARE [...] Visual richards intact to confrontation. PERRL. 3mm electrotyper apprentice III, IV and : EOMI. No nystagmus. [...] aggressive pulm edema, OOB as toleratd - UGO1DPT, encourage pulmonary toileting Cards: Essential HTN HLD [...] TUBE FEEDING with meds (per DHT) - Franklin Swallow Screening Result: failed=NPO Bowel regimen: - Last Bowel Movement: (prior to admission) - Senna 17.2 mg Q12H, miralax BID, suppository PRN Stress ulcer prophylaxis: - none Dysphagia - DHT placed - PRINCIPAL TECHNICAL WRITER following; NPO continue following, on TF - [...] Recent Labs 08/02/24 18408/03/24 0002 08/04/24 0003 08/05/24 0027 WBC 8.16 [...] not indicated DVT: subcutaneous heparin [x] Lines [place]: n/a Gallegos: remove Rectal tube: n/a Enteral [...] the assigned neurocritical care provider (resident, fellow, CAN REPAIRER, orPA) or page/call the corresponding number below NCC1 (Beds [phone]): Sanders # [phone], pager #[phone] NCC2 (Beds [phone], 12 Nando, and overflow): Sanders #: [phone], pager #[phone] * Florinda Velasquez, PT - 08/04/2024 1:36 [...] noted Mobility Assessment: Supine to Sit Mobility Viola Level: Supine->Sit: moderate assist (50% patient effort) [...] EOB Transfer Assessment: Sit to Stand Transfer Viola Level: Sit->Stand: moderate assist (50% patient effort) Physical Assist: Sit->Stand: 2 person assist Assistive Device: Sit->Stand: gait belt, hand held assist Skilled Rationale: Positioning, Sequencing, Hand placement, Verbal cues Skilled Intervention/Details: Sit->Stand: x 1 from EOB Bed-Chair Transfer Viola Level: Bed<->Chair: moderate assist (50% patient effort) Physical Assist: Bed<->Chair: 2 person assist Assistive Device: Bed<->Chair: gait belt, hand held assist Skilled Rationale: Positioning, Sequencing, Hand placement, Verbal cues Skilled Intervention/Details: Bed<->Chair: x 2-3 steps from bed to chair Gait/Functional Mobility: Stairs: Outcome Score(s): CURRENT [facility] Basic Mobility Inpatient Short Form Turning over [...] with a railin - Total Assistance CURRENT [facility] Mobility Raw Score: 10 CURRENT [facility] Mobility Functional Limitation: 76.75% Impaired in Basic [...] Edema: Mobility Assessment: Supine to Sit Mobility Viola Level: Supine->Sit: moderate assist (50% patient effort) Physical Assist: Supine->Sit: 2 person assist Bed Features/Set-up: Supine->Sit: Head of bed elevated Skilled Rationale: Positioning, Hand placement, Verbal cues, Technique of activity Transfer Assessment: Sit to Stand Transfer Viola Level: Sit->Stand: moderate assist (50% patient effort) Physical Assist: Sit->Stand: 2 person assist Assistive Device: Sit->Stand: gait belt, hand held assist Skilled Rationale: Positioning, Hand placement, Verbal cues, Technique of activity Stand to Sit Transfer Viola Level: Stand->Sit: moderate assist (50% patient effort) Physical Assist: Stand->Sit: 2 person assist Assistive Device: Stand->Sit: hand held assist Skilled Rationale: Positioning, Hand placement, Verbal cues, Arm in arm, Controlled descent for sitting Bed-Chair Transfer Viola Level: Bed<->Chair: moderate assist (50% patient effort) [...] assessment and plan as documented by the CAN REPAIRER with my changes/additions added. Patient is a [...] ICH x 7 days - Statin - PT/OT/PRINCIPAL TECHNICAL WRITER evaluation Pulmonary: No acute issues, appears to [...] Obtain TTE Nephrology: CKD stage 3a - JENNIFER on CKD, likely pre-renal due to hemodynamic [...] and other supportive care as per the CAN REPAIRER note from the same day This patient [...] care services to the [facility] today [facility], teaching and other care providers. Management of the above was performed. My time managing this critically ill patient included review of interval history, laboratories, radiology and cons ultation reports; performing a physical examination; discussing the patient with the multi-disciplinary team and managing life sustaining therapies to prevent imminent clinical deterioration. Richard Mejia MD Neurocritical Care Attending * Balbir Mccoy, CATSHOVEL DRIVER-PER DIEM REGISTERED NURSE - 08/04/2024 7:44 AM EDT NEUROCRITICAL CARE [...] Visual richards intact to confrontation. PERRL. 3mm electrotyper apprentice III, IV and : EOMI. No nystagmus. [...] SpO2 >92%; wean FiO2 as tolerated - [id number], encourage pulmonary toileting Cards: Essential HTN HLD [...] CKD stage 3a Urinary incontinent Hypocalcemia Mild Jennifer Fluid Balance: - Goal: euvolemia - Maintenance: none Intake/Output Summary (Last 24 hours) at 08/04/2024 0744 Last data filed at 08/04/2024 0645 Gross per 24 hour Intake 1568.84 ml Output 900 ml Net 668.84 ml Urinary incontinent - hold home oxybutynin Mild Jennifer on CKD - trend Cr daily, strict [...] NPO AND TUBE FEEDING with meds (per [facility]) - Franklin Swallow Screening Result: failed=NPO Bowel regimen: - Last Bowel Movement: (prior to admission) - Senna 17.2 mg Q12H, miralax at bedtime Stress ulcer prophylaxis: - none Dysphagia - DHT placed - PRINCIPAL TECHNICAL WRITER following - Tube feed: Vital AF with [...] not indicated DVT: subcutaneous heparin [x] Lines [place]: n/a Gallegos: inserted 08/02, (indication: strict I&O with concern for JENNIFER) Rectal tube: n/a Enteral access: inserted 08/03, [...] the assigned neurocritical care provider (resident, fellow, CAN REPAIRER, orPA) or page/call the corresponding number below NCC1 (Beds 0502-2779): Sanders # [phone], pager #[phone] NCC2 (Beds 0197-7189, 12 Nando, and overflow): Pernell #: [phone], pager #[phone] * Rafael Garcia MD - 08/03/2024 2:16 PM EDT NEUROVASCULAR Consult Daily Progress Note IDENTIFYING INFORMATION Lindsay Acuna MR# [id number] 08/03/2024 HISTORY OF PRESENT ILLNESS Lindsay Acuna [...] presented to [facility] and was seen on Telestroke, NIHSS 12. [...] interviewed and examined patient. I have reviewed Resident/Fellow/RY note and agree with the following highlights, [...] presented to [facility] and was seen on Telestroke, NIHSS 12. [...] workup. Delbert Kasper MD * Nohelia Oconnell, PRINCIPAL TECHNICAL WRITER - 08/03/2024 12:09 PM EDT Acute Care PRINCIPAL TECHNICAL WRITER Speech/Language/Cognitive Evaluation Best mode of Communication: spoken language (regular speech) Discharge Recommendations: Based on the below outcome measures/assessment score(s) and PRINCIPAL TECHNICAL WRITER clinicaljudgment, discharge destination recommendation is: (Skilled speech therapy services at next level of care) Barriers to discharge home: Cognitive impairments that impact safety and independence Supporting factors for discharge setting: Impaired swallow function limiting nutritional status andsafety with oral intake Acute PRINCIPAL TECHNICAL WRITER Outcomes Tracking Communicate basic wants and needs?: [...] presented to [facility] and was seen on Telestroke,NIHSS 12. CTH [...] 0 Asthenia (A): 0 Strain (S): 0 PRINCIPAL TECHNICAL WRITER Outcomes / Standardized Measures Score The Orientation [...] unable to respond. Total Score: 12 Acute PRINCIPAL TECHNICAL WRITER Goals Plan of Care by Nohelia Oconnell PRINCIPAL TECHNICAL WRITER at 08/03/2024 11:25 AM Version 1 of 1 Problem: Dysphagia Goal: Ongoing Assessment - Patient will participate in ongoing assessment by accepting various PO consistency trials with appropriate participation/oral acceptance and no significant respiratory complications to determine readiness for diet advancement Outcome: Ongoing Problem: PRINCIPAL TECHNICAL WRITER - Cognition Goal: Orientation Log - Patient [...] better assess deficits and most appropriately guide PRINCIPAL TECHNICAL WRITER plan of care Outcome: Ongoing Speech Language [...] of session: bed alarm Needs in reach. PRINCIPAL TECHNICAL WRITER Evaluation and Treatment Time Speech Eval - Sound Production W/Lang Comp and Exp 23272: 11 Swallowing Eval 74454: 10 Upon discontinuation of Acute Care Speech [...] on the below outcome measures/assessment score(s) and PRINCIPAL TECHNICAL WRITER clinicaljudgment, discharge destination recommendation is: Deferred to PT/OT recomendations related to mobility Current therapy frequency recommendation in acute care: Swallow Therapy Frequency: 5 times a week Acute PRINCIPAL TECHNICAL WRITER Outcomes Tracking Communicate basic wants and needs?: [...] presented to [facility] and was seen on Telestroke,NIHSS 12. 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 Prior PRINCIPAL TECHNICAL WRITER history: No prior speech history per chart [...] and Liquids Trialed Modality Amount Ice Teaspoon, PRINCIPAL TECHNICAL WRITER-fed 3x Thin Teaspoon 3x Oral Phase Function [...] Patient presents with presumed pharyngeal phase impairments. Franklin Swallow Screen: (administered by: RN) Franklin Swallow Screening Screening Exclusion Criteria: none, continue [...] Water Swallow Challenge : coughing/throat clearing-overt signs/symptoms Franklin Swallow Screening Result: failed=NPO Voice and Swallow [...] Ok for ice chips with RN supervision. PRINCIPAL TECHNICAL WRITER will continue to follow for ongoing dysphagia management. Patient Education/Instruction Learners: Patient Education provided: Dysphagia recommendation risk: benefit analysis, Role of this discipline Teaching method: Verbal Education/Instruction Learner response: Needs review Learning preferences: Auditory Learning considerations: Cognition Plan for next session: 08/03: Good Prognosis, ongoing dysphagia management to determine readiness for diet advancement vs instrumental. Acute PRINCIPAL TECHNICAL WRITER Goals Plan of Care by RIKI Hayes at 08/03/2024 11:25 AM Version 1 of 1 Problem: Dysphagia Goal: Ongoing Assessment - Patient will participate in ongoing assessment by accepting various PO consistency trials with appropriate participation/oral acceptance and no significant respiratory complications to determine readiness for diet advancement Outcome: Ongoing Problem: PRINCIPAL TECHNICAL WRITER - Cognition Goal: Orientation Log - Patient [...] better assess deficits and most appropriately guide PRINCIPAL TECHNICAL WRITER plan of care Outcome: Ongoing Speech Language Pathologist: RIKI Hayes, BCS-S Board Certified Specialist in Swallowing and Swallowing Disorders Available via Switchcam Chat Time In: 1130 Time Out: 1151 Total Visit Time: 21 minutes Total Treatment Time (skilled, billable minutes): 21 minutes Non-billable assistance during session: none Assisted by during session: Patient's PPE used during patient interaction: gloves Patient location/status at end of session: bed with head of bed elevated Patient alarms at end of session: bed alarm Needs in reach. PRINCIPAL TECHNICAL WRITER Evaluation and Treatment Time Speech Eval - Sound Production W/Lang Comp and Exp 41867: 11 Swallowing Eval 83516: 10 Upon discontinuation of Acute Care Speech Therapy Services or patient discharge from the hospital this note represents the current Speech Therapy Discharge Summary * Richard Mejia MD - 08/03/2024 10:30 AM EDT I have independently seen and examined the patient on 08/03/24. I agree with the history, examination, assessment and plan as documented by the CAN REPAIRER with my changes/additions added. Patient is a [...] the setting of ICH - Statin - PT/OT/PRINCIPAL TECHNICAL WRITER evaluation Pulmonary: No acute issues, appears to [...] and other supportive care as per the CAN REPAIRER note from the same day This patient [...] with assistance from spouse Care Management Plan FAST [employer] FRY COOK met with Patient and Spouse at bedside to complete Initial Assessment. They were agreeable to SW visit. Patient was lethargic though able to answer some short questions. Patient consented to Spouse assisting with assessment. Spouse/Patient report that Patient has never completed a HCPOA. They expressed interest, and FAST FOOD FRY COOK will follow to complete document when Patient is more alert and oriented. Spouse reports himself and Patient live in a ranch-style home with strong supports from their community, including 2 neighbors that have assisted at this time. He noted that himself and Patient recently returned from a visit to [facility] for their 50th anniversary. Spouse reports that their 2 children will be visiting soon. FAST FOOD FRY COOK explained SW role and offered resources. Spouse [...] Name and Contact information: Ike Acuna P: [phone] Adult Child(jj), List All Adult Children: Yes Name and Contact information: Donnell Acuna P: [phone]; Nathen Acuna P: [phone] Would you like to add additional adult [...] for Advance Care Planning? : Patient Agreeable (FAST FOOD FRY COOK to follow for HCPOA completion when Patient is more alert and oriented) Medication Management Does the patient have prescription insurance coverage? : Yes Is the patient on Anticoagulation? : Yes (Per chart review, Patient is on anticoagulation but has not been taking it (does not recall the last time she took a dose)) Provider or Clinic that manages Anticoagulation?: (unspecified at this time) [facility] [address] [place] [phone] [address] Living Environment and Support System Is the patient from a facility or long term?: No Living Environment: House ("1 bedroom ranch") Patient Caregiving Responsibilities: Self Patient-identified caregiver/support network: Family, Friends, Neighbors, Anglican Who does the patient identify as a [...] themselves at home? : Unable to assess Heating And Blending Supervisor Does the patient or quality assurance representative express financial concerns? : No Chela Snyder, Social Work Student Available by Secure Chat Cosigned by OWEN Keller at 08/03/2024 11:20 AM EDT * Balbir Mccoy, CATSHOVEL DRIVER-PER DIEM REGISTERED NURSE - 08/03/2024 7:40 AM EDT NEUROCRITICAL CARE [...] Visual richards intact to confrontation. PERRL. 3mm electrotyper apprentice III, IV and : EOMI. No nystagmus. [...] SpO2 >92%; wean FiO2 as tolerated - [id number], encourage pulmonary toileting Cards: Essential HTN HLD [...] - Bowel regimen: - Last Bowel Movement: (APPRENTICE) - Senna, miralax Stress ulcer prophylaxis: - none Dysphagia - DHT placed - PRINCIPAL TECHNICAL WRITER following - Tube feed: Vital AF with [...] the assigned neurocritical care provider (resident, fellow, CAN REPAIRER, orPA) or page/call the corresponding number below NCC1 (Beds 1583-5591): Pernell # [phone], pager #[phone] NCC2 (Beds 6518-5796, 12 Nando, and overflow): Sanders #: [phone], pager #[phone] * Nando Caceres MD - 08/03/2024 6:00 [...] 2b for R M1 occlusion with Dr. Schuler on 08/02 Neuro: -- Continue neuro checks [...] nccu Neurosurgery signing off Please page NS2 ([id number]) with questions Complexity. Hypocalcemia - Continue to monitor and replete. Any conditions listed below are present on admission unless otherwise specified. . Cosigned by Prema Schuler MD at 08/03/2024 6:37 PM EDT * Andreas Brenda Ga [facility] - 08/02/2024 10:57 PM EDT Department of [...] any questions, Name: Andreas Ga RPH Phone: [phone] Date/Time: 08/02/2024 10:57 PM * Richard Mejia MD - 08/02/2024 6:01 PM EDT I have independently seen and examined the patient on 08/02/24. I agree with the history, examination, assessment and plan as documented by the CAN REPAIRER with my changes/additions added. Patient is a [...] to determine stroke burden - Statin - PT/OT/PRINCIPAL TECHNICAL WRITER evaluation Pulmonary: No acute issues, appears to [...] stage 3a - Maintain euvolemia GI/Nutrition: - PRINCIPAL TECHNICAL WRITER evaluation - Bowel regimen to prevent constipation [...] and other supportive care as per the CAN REPAIRER note from the same day This patient [...] MD Neurocritical Care Attending documented in this [facility]03-29-2025 Consult note* Niru Koch MD [...] GI fellow's note Niru Koch MD * Migdalia Mccabe MD - 08/08/2024 2:37 PM EDTAssociated Order(s): IP CONSULT TO GASTROENTEROLOGY [facility] OS Main IBD Consult WebExchange --> IM Consult Serv [facility] --> [facility] Main IBD consult service [...] today. Consent obtained by at bedside. - PRINCIPAL TECHNICAL WRITER eval: none - RD eval: none PAST [...] dependence ASSESSMENT/RECOMMENDATIONS: - primary team feels that ad terminal makeup operator enteric nutrition is warranted in s/o CVA. Patient is appropriate for endoscopic PEG placement. Consent obtained from at bedside. - we will tentatively plan for EGD for PEG placement 08/09 as add on case. See pre procedure recommendations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 blood sugars 1 time daily. Dx: Type 2 DM Controlled E11.9. Insulin: no Chlorhexidine Gluconate (PERIDEX) 0.12 % solution Use 15 mL as instructed twice daily. Rinse aroundmouth for 30 seconds then expectorate blood sugar diagnostic (Tumotorizado.comTOUCH ULTRA TEST STRIP) test strip Use to [...] of care. This note was generated using Xendo software. It may contain errors in wording, punctuation, or spelling. David Dupree APRN.GARRETT documented in this encounterMercy Health Allen Hospital05-17-2024 NoteHNO ID: [id number] Author: RADHA LEVINE APRN.GARRETT Service: ? Author Type: Nurse Practitioner Type: Progress Notes Filed: 09/29/2023 18:12 Note Text: This note was created using [employer]. Subjective Lindsay Acuna is a 77 year old female. 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 Denies fever or chills Denies malaise or fatigue Denies new lotions, soaps, or medicines States that she was working out in the garden the same day the rash erupted. The history is provided by the patient. No senior ui web developer was used. Rash This is a new [...] kg/m? Physical Exam Vitals (more content not included)...[facility]05-17-2024 History of Present illness Narrative* Radha Levine APRN.PER DIEM REGISTERED NURSE - 09/29/2023 2:32 PM EDT This note was created using [employer]. Subjective Lindsay Acuna is a 77 year old female. 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 Denies fever or chills Denies malaise or fatigue Denies new lotions, soaps, or medicines States that she was working out in the garden the same day the rash erupted. The history is provided by the patient. No senior ui web developer was used. Rash This is a new [...] if symptoms persist or worsen. Radha Levine APRN.GARRETT documented in this encounterMercy Health [facility] Hospital05-07-2024 Telephone encounter Note * Telephone Encounter - Mj Glover APRN.CNP - 09/19/2023 9:46 AM EDT The following approved medication requests have been transmitted electronically. Requested Prescriptions Pending Prescriptions Disp Refills glimepiride (AMARYL) 2 mg tablet 90 tablet 3 Sig: Take 1 tablet by mouth daily with breakfast. Mj Glover APRN.CNP [facility]05-07-2024 Miscellaneous Notes* Telephone Encounter - Mj [...] Dorsey RN. documented in this encounterMercy Health Allen Hospital05-07-2024 Telephone encounter Note * Telephone Encounter [...] Please advise. Thank you. Brigitte Dorsey, RN. [facility]11-25-2023 Miscellaneous Notes* Telephone Encounter - Kameron Caruso MD - 04/08/2023 11:04 AM EST OK to refill as ordered Kameron Caruso MD * Telephone Encounter - Carmencita Baker LPN - 04/08/2023 10:57 AM EST Pt calling for refills. Last seen pcp 11/25/22. Next appt with pcp 05/30/23. documented in this encounterMer[facility]14-2023 Miscellaneous Notes* Telephone Encounter - Kameron Caruso MD - 11/25/2022 11:58 AM EDT Done Kameron Caruso MD * Telephone Encounter - Jaiden Paulino RN - 11/25/2022 10:43 AM EDT Patient asking pcp if you can cancel the jardiance on her med list, because it shows up on her MyChart, and she does not take it. documented in this encounterMercy [facility] Hospital01-13-2023 History of Present illness Narrative* Kameron [...] BY MOUTH ONCE DAILY WITH BREAKFAST lancets ([employer]ap[employer]CH DELICA PLUS LANCET) 30 gauge Test blood [...] Caruso MD documented in this encounterMercy [facility] Hospital11-28-2022 Miscellaneous Notes* Telephone Encounter - Mj [...] Isaac Mendez LPN * [facility] - 04/11/2022 8:49 AM EST Patient has been identified by name and date of : Yes Requested Prescriptions No prescriptions requested or ordered in this encounter RX INSTRUCTIONS: Patient aware RX will be sent to pharmacy. No need to notify patient. [facility] documented in this encounterMercy [facility] Hospital10-19-2022 Instructions* Patient Instructions* Emma Sotomayor APRN.CNP [...] not improve. documented in this encounterMercy Health Allen Hospital10-19-2022 History of Present illness Narrative* Emma [...] the legs. Has has not tried any rqvl-ddg-sxkoylb analgesia, refers that she does not like [...] BY MOUTH ONCE DAILY WITH BREAKFAST lancets (Tumotoriz[employer].comTOUCH DELICA PLUS LANCET) 30 gauge Test blood [...] APRN.GARRETT This note was partially generated using Xendo voice recognition system. Note was reviewed for accuracy. There may be minor misspellings or grammar miscues with Xendo voice recognition. documented in this encounterMercy Health Allen Hospital10-19-2022 Miscellaneous Notes* Telephone Encounter - Michelle [...] urine 11. : no Protocols used: Back Ycxg-[id number]-BV documented in this encounterMercy Health Allen Hospital08-30-2022 Miscellaneous Notes* Telephone Encounter - Jumana [...] Conley Pss documented in this encounterMercy Health [facility] Hospital08-30-2022 Miscellaneous Notes* Telephone Encounter - Kameron [...] WITH BREAKFAST documented in this encounterMercy Health [facility] Hospital08-04-2022 Miscellaneous Notes* Telephone Encounter - Mj [...] Dorsey RN documented in this encounterMercy Health [facility] Hospital07-12-2022 Miscellaneous Notes* Telephone Encounter - Mj Glover APRN.CNP - 11/23/2021 10:50 AM EDT The following approved medication requests have been transmitted electronically. Pending Prescriptions Disp Refills CHLORHEXIDINE GLUCONATE 0.12 % MOUTHWASH 473 mL 1 Sig: Use 15 mL as instructed twice daily. Rinse around mouth for 30 seconds then expectorate Mj Saurav, CATSHOVEL DRIVER.PER DIEM REGISTERED NURSE * Telephone Encounter - Ginger Cool - 11/23/2021 10:28 AM EDT Lindsay Acuna is calling Kameron Caruso MD today Patient is requesting a new script for mouth rinse is sent to [facility] Chlorhexidene Gluconate 0.12% Patient was instructed to contact office after her appointment with name of medication. PCP agreed to fill Please advise documented in this encounterMercy Health Allen Hospital07-12-2022 History of Present illness Narrative* Kameron Caruso MD - 11/23/2021 9:40 AM EDT Chief Complaint Patient presents with: F/U 6 Month HPI Lindsay Acuna is a 76 year old female who presents here today for a 6 month follow up. Pt here today for a 6 month follow up. Recently back from [facility]. Was told by Natives to not take [...] doing much exercise. When she was in [facility] they had to go up 207 steps, [...] mouth daily with breakfast. blood sugar diagnostic ([employer] ULTRA TEST) test strip Test Blood Sugar [...] kidney disease, unspecified CKD stage, unspecified whether snf insulin use (HCC) - ICD9: 250.40, 585.9, [...] Past Histories independently gathered by the clinical customer support representative and the remaining scribed note accurately describes [...] Walton Ma documented in this encounterMercy Health Allen Hospital06-02-2022 Miscellaneous Notes* Telephone Encounter - Kameron Caruso MD - 10/14/2021 9:34 AM EDT Order filed Kameron Caruso MD * Telephone Encounter - Adenike Walton Ma - 10/14/2021 9:20 AM EDT Pt stopped in the office and is requesting a new meter to be sent into [facility]. Pt uses [employer]. Adenike Walton Ma documented in this encounterMercy Health [facility] Hospital05-31-2022 Miscellaneous Notes* Telephone Encounter - Kameron Caruso MD - 10/12/2021 5:10 PM EDT Noted Kameron Caruso MD * Telephone Encounter - Tianna Marshall RN - 10/12/2021 10:31 AM EDT Pt called and is notified of providers message and instructions. Pt voices understanding she reports that she recently got her tetanus and forgot about it. She states she is going to get her influenza and hates shots, so she is going to skip the Hep A. Tianna Marshall RN * Telephone Encounter - Adenike [...] where they were going to go to [facility] they have closed the border there and they are now going to [facility]. 1. Please advise if they have to [...] Barrios LPN documented in this encounterMercy Health Allen Hospital05-09-2022 Miscellaneous Notes* Telephone Encounter - Jumana [...] 09/14/2021 11:42 AM EDT According to the [facility] travel site Typhoid vaccine is also recommended, has she had this previously? Also, is she up to date on tetanus? And has she had Hepatitis A and B vaccines? I can give her prescriptions for the malaria pills and for Cipro - how long she she going to be traveling? Kameron Caruso MD * Telephone Encounter - Tianna Marshall RN - 09/13/2021 4:10 PM EDT [...] and advise. documented in this encounterMercy Health Allen Hospital06-22-2021 History of Past illness Narrative* Problem Noted Date Resolved Date Hypertensive kidney disease with stage 3 chronic kidney disease 11/03/2020 11/05/2020 Diabetes mellitus with renal complications 05/0111/03/2020 PURE HYPERCHOLESTEROLEM 11/27/19 14 DIABETES MELLITUS TYPE II-UNCOMPL 11/26/2013 documented as of this encounter (statuses as of 09/20/2021) [facility] History of Past illness Narrative* Problem Noted Date Resolved Date Hypertensive kidney disease with stage 3 chronic kidney disease 11/03/2020 11/05/2020 Diabetes mellitus with renal complications 05/0111/03/2020 PURE HYPERCHOLESTEROLEM 11/27/19 14 DIABETES MELLITUS TYPE II-UNCOMPL 11/26/2013 documented as of this encounter (statuses as of 10/12/2021) [facility] of Past illness Narrative* Problem Noted Date Resolved Date Hypertensive kidney disease with stage 3 chronic kidney disease 11/03/2020 11/05/2020 Diabetes mellitus with renal complications 05/0111/03/2020 PURE HYPERCHOLESTEROLEM 11/27/19 14 DIABETES MELLITUS TYPE II-UNCOMPL 11/26/2013 documented as of this encounter (statuses as of 10/14/2021) [facility] of Past illness Narrative* Problem Noted Date Resolved Date Hypertensive kidney disease with stage 3 chronic kidney disease 11/03/2020 11/05/2020 Diabetes mellitus with renal complications 05/0111/03/2020 PURE HYPERCHOLESTEROLEM 11/27/19 14 DIABETES MELLITUS TYPE II-UNCOMPL 11/26/2013 documented as of this encounter (statuses as of 11/23/2021) [facility] of Past illness Narrative* Problem Noted Date Resolved Date Hypertensive kidney disease with stage 3 chronic kidney disease 11/03/2020 11/05/2020 Diabetes mellitus with renal complications 05/0111/03/2020 PURE HYPERCHOLESTEROLEM 11/27/19 14 DIABETES MELLITUS TYPE II-UNCOMPL 11/26/2013 documented as of this encounter (statuses as of 11/23/2021) [facility] of Past illness Narrative* Problem Noted Date Resolved Date Hypertensive kidney disease with stage 3 chronic kidney disease 11/03/2020 11/05/2020 Diabetes mellitus with renal complications 05/0111/03/2020 PURE HYPERCHOLESTEROLEM 11/27/19 14 DIABETES MELLITUS TYPE II-UNCOMPL 11/26/2013 documented as of this encounter (statuses as of 12/16/2021) [facility] of Past illness Narrative* Problem Noted Date Resolved Date Hypertensive kidney disease with stage 3 chronic kidney disease 11/03/2020 11/05/2020 Diabetes mellitus with renal complications 05/0111/03/2020 PURE HYPERCHOLESTEROLEM 11/27/19 14 DIABETES MELLITUS TYPE II-UNCOMPL 11/26/2013 documented as of this encounter (statuses as of 01/11/2022) [facility] of Past illness Narrative* Problem Noted Date Resolved Date Hypertensive kidney disease with stage 3 chronic kidney disease 11/03/2020 11/05/2020 Diabetes mellitus with renal complications 05/0111/03/2020 PURE HYPERCHOLESTEROLEM 11/27/19 14 DIABETES MELLITUS TYPE II-UNCOMPL 11/26/2013 documented as of this encounter (statuses as of 01/11/2022) [facility] of Past illness Narrative* Problem Noted Date Resolved Date Hypertensive kidney disease with stage 3 chronic kidney disease 11/03/2020 11/05/2020 Diabetes mellitus with renal complications 05/0111/03/2020 PURE HYPERCHOLESTEROLEM 11/27/19 14 DIABETES MELLITUS TYPE II-UNCOMPL 11/26/2013 documented as of this encounter (statuses as of 03/02/2022) [facility] of Past illness Narrative* Problem Noted Date Resolved Date Hypertensive kidney disease with stage 3 chronic kidney disease 11/03/2020 11/05/2020 Diabetes mellitus with renal complications 05/0111/03/2020 PURE HYPERCHOLESTEROLEM 11/27/19 14 DIABETES MELLITUS TYPE II-UNCOMPL 11/26/2013 documented as of this encounter (statuses as of 03/02/2022) [facility] of Past illness Narrative* Problem Noted Date Resolved Date Hypertensive kidney disease with stage 3 chronic kidney disease 11/03/2020 11/05/2020 Diabetes mellitus with renal complications 05/0111/03/2020 PURE HYPERCHOLESTEROLEM 11/27/19 14 DIABETES MELLITUS TYPE II-UNCOMPL 11/26/2013 documented as of this encounter (statuses as of 04/11/2022) [facility] of Past illness Narrative* Problem Noted Date Resolved Date Hypertensive kidney disease with stage 3 chronic kidney disease 11/03/2020 11/05/2020 Diabetes mellitus with renal complications 05/0111/03/2020 PURE HYPERCHOLESTEROLEM 11/27/19 14 DIABETES MELLITUS TYPE II-UNCOMPL 11/26/2013 documented as of this encounter (statuses as of 05/27/2022) [facility] of Past illness Narrative* Problem Noted Date Diagnosed Date Resolved Date Hypertensive kidney disease with stage 3 chronic kidney disease 11/03/2020 11/05/2020 Diabetes mellitus with renal complications 05/01/2014 11/03/2020 PURE HYPERCHOLESTEROLEM 07/09/2013 DIABETES MELLITUS TYPE II-UNCOMPL 11/26/2013 documented as of this encounter (statuses as of 11/25/2022) [facility] of Past illness Narrative* Problem Noted Date Diagnosed Date Resolved Date Hypertensive kidney disease with stage 3 chronic kidney disease 11/03/2020 11/05/2020 Diabetes mellitus with renal complications 05/01/2014 11/03/2020 PURE HYPERCHOLESTEROLEM 11/12 DIABETES MELLITUS TYPE II-UNCOMPL 11/26/2013 documented as of this encounter (statuses as of 04/08/2023) [facility] of Past illness Narrative* Problem Noted Date Diagnosed Date Resolved Date Hypertensive kidney disease with stage 3 chronic kidney disease 11/03/2020 11/05/2020 Diabetes mellitus with renal complications 05/01/2014 11/03/2020 PURE HYPERCHOLESTEROLEM 11/12 DIABETES MELLITUS TYPE II-UNCOMPL 11/26/2013 documented as of this encounter (statuses as of 04/08/2023) [facility] HospitalDischarge summary Author Pieter Morgan [facility] Note Date/Time August 02, 2024 1:1 6pm [facility] Medical Records Department [address] [place] [address] Emergency Department Summary 08/02/24 MR#: [id number] Acct: [id number] Name: LINDSAY ACUNA Rep #:[id number] : [...] the EMR. states they returned home from [facility] about 1.5-2 weeks ago, and they [...] 71.4 H Lymph % (Auto) 17.9 L [place] % (Auto) 8.9 Eos % (Auto) 1.0 [...] 08/02/2024 at 1250 hours. Reading Location: [facility] Head/Neck CTA 08/02/24 12:24 IMPRESSION: RIGHT CAROTID: Mild degree of calcific plaque at the origin of the right internal carotid artery. LEFT CAROTID: Mild degree of calcific plaque at the origin of the left internal carotid artery. VERTEBRALS: Dominant left vertebral artery INTRACRANIAL: Unremarkable Other impression: No significant stenosis seen. Reading Location: [place] [address] Rhythm Strip Rhythm Strip: A-fib Rate: 90 Ectopy: None EKG Initial EKG: Attestation: I personally reviewed and interpreted this EKG as follows: Interpretation: No Acute Injury Pattern, Atrial Fibrillation and Non-Specific ST Changes Management Discussion w/another healthcare provider: Learning And Development Administrator ([facility] stroke neurology) and Radiologist Stroke Documentation [...] min), Including time spent:, Discussing w/Patient &/or Family/Finance Administrator, Discussing w/Consultants, Arranging Admission or Transfer and [...] MD [Primary Care Provider] - Print Language: Armenian Disposition Disposition: Acute Care Hospital Discharge Location: [facility] What to do if you have Problems For any increased pain, shortness of breath, bleeding, nausea or vomiting, chestpain, or any unexpected problems, contact your Primary Care Provider. Call [facility] ([phone]) or report to the closest Emergency Room. Call 911 if necessary. 08/02/24 1316 <Electronically signed by Pieter Morgan MD> Cosigner Signature (if applicable): CC: Dr. Kameron Caruso MD ~ Signed [facility] Work Phone: Evaluation note* Diagnosis Need for vaccination- Primary Need for prophylactic vaccination and inoculation against unspecified single disease documented in this encounter [facility] note* Diagnosis Type 2 diabetes mellitus with diabetic chronic kidney disease, unspecified CKD stage, unspecified whether ad terminal makeup operator insulin use (HCC)- Primary Essential hypertension, benign Hyperlipidemia, unspecified hyperlipidemia type Stage 3b chronic kidney disease (HCC) Hypothyroidism, unspecified type Memory loss [facility]* Diagnosis Type 2 diabetes mellitus with diabetic chronic kidney disease, unspecified CKD stage, unspecified whether ad terminal makeup operator insulin use (HCC)- Primary documented in this encounter [facility] note* Diagnosis Hyperlipidemia, unspecified hyperlipidemia type Essential hypertension, benign Type 2 diabetes mellitus with diabetic chronic kidney disease, unspecified CKD stage, unspecified whether ad terminal makeup operator insulin use (HCC) [facility]* Diagnosis Type 2 diabetes mellitus with diabetic chronic kidney disease, unspecified CKD stage, unspecified whether ad terminal makeup operator insulin use (HCC) Essential hypertension, benign Hyperlipidemia, unspecified hyperlipidemia type documented [facility]* Diagnosis Acute midline low back pain without sciatica- Primary [facility]* Diagnosis Type 2 diabetes mellitus with diabetic chronic kidney disease, unspecified CKD stage, unspecified whether ad terminal makeup operator insulin use (HCC)- Primary [facility]* Diagnosis Essential hypertension, benign- Primary Hypothyroidism, unspecified type Type 2 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, without long-term current use of insulin (HCC) Hyperlipidemia, unspecified hyperlipidemia type Chronic kidney disease, stage 3a (HCC) Edema of left lower leg Wellness examination documented in this encounter [facility] note* Diagnosis Type 2 diabetes mellitus with diabetic chronic kidney disease, unspecified CKD stage, unspecified whether snf insulin use (HCC) [facility]* Diagnosis Allergic contact dermatitis due to plant- Primary Contact dermatitis and other eczema due to plants (except food) documented [facility]* Diagnosis Rash- Primary Rash and other nonspecific skin eruption [facility]* Diagnosis Type 2 diabetes mellitus with diabetic chronic kidney disease, unspecified CKD stage, unspecified whether ad terminal makeup operator insulin use (HCC)- Primary Essential hypertension, benign Chronic kidney disease, stage 3a (HCC) Hyperlipidemia, unspecified hyperlipidemia type Hypothyroidism, unspecified type Edema of left lower leg Memory loss [facility]* Diagnosis Essential hypertension, benign- Primary Type 2 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, without long-term current use of insulin (HCC) Chronic kidney disease, stage 3a (HCC) Hyperlipidemia, unspecified hyperlipidemia type Hypothyroidism, unspecified type Edema of left lower leg Memory loss Urinary incontinence, unspecified type Irregular heart beat Cardiac dysrhythmia, unspecified Atrial fibrillation, unspecified type (HCC) documented [facility]* Diagnosis Atrial fibrillation, unspecified type (HCC)- Primary Hypothyroidism, unspecified type Need for malaria prophylaxis [facility] Diagnosis History of traveler's diarrhea- Primary Personal history of other diseases of digestive system documented [facility] this encounter [facility]* Diagnosis History of traveler's diarrhea Personal history of other diseases of digestive system documented in this encounter [facility] noteNo assessment information availableWKettering Health [facility] Work Phone: Evaluation note* Diagnosis Acute ischemic right MCA stroke- Primary Unspecified cerebral artery occlusion with cerebral infarction Cerebrovascular accident (CVA), unspecified mechanism Renal disease (High Serum Creatinine) Unspecified disorder of kidney and ureter Type 2 diabetes mellitus with hyperglycemia Type II or unspecified type diabetes mellitus without mention of complication, not stated as uncontrolled [facility] N[facility] No data available for this section Lavon Tariqwn Reason for referral (narrative)* Outpatient Procedure (Routine) - Pending Review Specialty Diagnoses / Procedures Referred By Contac t Referred To Contact [facility] [place] Diagnoses Atrial fibrillation, unspecified type (HCC) Procedures ECHO ECHO TTHRC R-T 2D W/WOM-MODE COMPL SPEC&COLR D Kameron Caruso MD [address] [place] [address] [facility] [place] [address] [place] [address] Referral ID Status Reason Start Date Expiration Date Visits Requested Visits Authorized [id number] Pending Review Auto-Generat ed Referral 05/31/2024 05/31/2025 1 1 * Outpatient Procedure (Routine) - New Request Specialty Diagnoses / Procedures Referred By Contteofilo t Referred To Contact [facility] [place] Diagnoses Irregular heart beat Procedures ECG COMPLETE ECG ROUTINE ECG W/LEAST 12 LDS W/I&R Kameron Caruso MD [address] [place] [address] [facility] [place] [address] [place] [address] Referral ID Status Reason Start Date Expiration Date Visits Requested Visits Authorized [id number] New Request Auto-Generat ed Referral 05/31/2024 05/31/2025 1 1 [facility] for referral (narrative)No reason for referral information availableWKettering Health [facility] Work Phone: Reason for visit Narrative* Auth/Cert Specialty Diagnoses / Procedures Referred By Contac t Referred To Contact Diagnoses Acute ischemic right MCA stroke Cerebrovascular Accident (Level A Ishemic Stroke) Prema Rodgers MD [address] [place] [address] Phone: tel: fax: [facility] [address] [place] [address] Referral ID Status Reason Start Date Expiration Date Visits Re quested Visits Authorized [id number] 1 1 [facility] Summary Purpose Family History No Family History Records Found Relationship Condition Age at Onset Recorded Date/T monse mother Diabetes mellitus Unknown Hypertension Unknown Psychiatric disorder Unknown grandmother Malignant neoplasm Unknown sister Disorder of thyroid Unknown Advance Directives No Advanced Directives Records FoundDocuments on File Type Date Recorded Patient Fiberglass Finisher 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 Advance Directives and Living Will Power of Curtain Worker Latest Code Status on File Code Status Date Activated Date Inactivated Comments Full Code 01/09/2019 10:16 AM Latest Code Status on File Code Status Date Activated Date Inactivated Comments Full Code 10/16/2019 9:16 AM Full Code 01/09/2019 10:16 AM 01/09/2019 2:23 PM Documents on File Type Date Recorded Patient Fiberglass Finisher 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 No August 02, 2024 12:46pm Date [...] patient had a polyp identified by on {time:85874}. Biopsies {are/were w not:34} taken. The patient's usual bowel pattern is {bowel pattern:71586}. Bowel movements {bowel changes:49764} . {abd pain:06636}. The patient has noted{bleeding with BM:85349}. The patient {does/do/not:45534} have a family history of colon polyps. The patient {does/do/not:27580} have a family history of colon cancer. [...] this encounter History of Present Illness * Fondran, Hailey C, MD - 10/16/2019 9:30 AM EDT No [...] WORK September 10, 2024 5:0 0am [facility] ([facility]) October 02, 2024 9:29a m Chief [...] WORK October 01, 2024 5:00a m [facility] ([place]) October 02, 2024 9:29a m LAB WORK [...] WORK October 01, 2024 5:00a [facility] October 02, 2024 9:29a m LAB [...] WORK October 01, 2024 5:00a m [facility] October 02, 2024 9:29a [...] WORK October 01, 2024 5:00a m AF[facility] ([facility]) October 02, 2024 9:29a m [...] WORK October 01, 2024 5:00a m [facility] ([facility]) October 02, 2024 9:29a m [...] WORK October 01, 2024 5:00a m [facility]IB ([facility]) October 02, 2024 9:29a m [...] WORK October 01, 2024 5:00a m [facility] ([facility]) October 02, 2024 9:29a m [...] 5:00am [facility] LAB WORK February 04 5:07am Chief Complaint Admit Date [facility] LAB WORK November 12, 2024 5:0 [...] 5:00am [facility] LAB WORK February 04 5:07am [facility] LAB WORK February 11 6:03am [facility] LAB WORK February 25, 2025 4:07am Additional Source Comments INFORMATION SOURCE (unrecogn ized section and content) DATE CREATED AUTHOR 08/31/2018 [facility] ([place]) DATE CREATED AUTHOR AUTHOR'S ORGANIZ ATION 10/18/2019 [facility] DATE CREATED AUTHOR AUTHOR'S ORGANIZ ATION 08/04/2024 [facility] [employer] [facility] DATE CREATED AUTHOR AUTHOR'S ORGANIZ ATION 08/07/2024 [facility] DATE CREATED AUTHOR AUTHOR'S ORGANIZ ATION 09/01/2024 [facility] DATE CREATED AUTHOR AUTHOR'S ORGANIZ ATION 11/08/2024 [facility] DATE CREATED AUTHOR AUTHOR'S ORGANIZ ATION 02/17/2025 [facility] DATE CREATED AUTHOR AUTHOR'S ORGANIZ ATION 03/26/2025 [facility] Source Comments (unrecognize d section and content) In the event this informatio n is protected by the Federal Confidentiality of Alcohol and Drug Abuse Patient Records regulations: The Federal rules restrict any use of the information to criminally investigate or prosecute any alcohol or drug abuse patient.[facility]In the event this information is protected by the Federal Confidentiality of Alcohol and Drug Abuse Patient Records regulations: The Federal rules restrict any use of the information to criminally investigate or prosecute any alcohol or drug abuse patient.[facility] HospitalIn the event this information is protected by the Federal Confidentiality of Alcohol and Drug Abuse Patient Records regulations: The Federal rules restrict any use of the information to criminally investigate or prosecute any alcohol or drug abuse patient.[facility] HospitalIn the event this information is protected by the Federal Confidentiality of Alcohol and Drug Abuse Patient Records regulations: The Federal rules restrict any use of the information to criminally investigate or prosecute any alcohol or drug abuse patient.[facility] HospitalIn the event this information is protected by the Federal Confidentiality of Alcohol and Drug Abuse Patient Records regulations: The Federal rules restrict any use of the information to criminally investigate or prosecute any alcohol or drug abuse patient.[facility] HospitalIn the event this information is protected by the Federal Confidentiality of Alcohol and Drug Abuse Patient Records regulations: The Federal rules restrict any use of the information to criminally investigate or prosecute any alcohol or drug abuse patient.[facility] HospitalIn the event this information is protected by the Federal Confidentiality of Alcohol and Drug Abuse Patient Records regulations: The Federal rules restrict any use of the information to criminally investigate or prosecute any alcohol or drug abuse patient.[facility] HospitalIn the event this information is protected by the Federal Confidentiality of Alcohol and Drug Abuse Patient Records regulations: The Federal rules restrict any use of the information to criminally investigate or prosecute any alcohol or drug abuse patient.[facility] HospitalIn the event this information is protected by the Federal Confidentiality of Alcohol and Drug Abuse Patient Records regulations: The Federal rules restrict any use of the information to criminally investigate or prosecute any alcohol or drug abuse patient.[facility] HospitalIn the event this information is protected by the Federal Confidentiality of Alcohol and Drug Abuse Patient Records regulations: The Federal rules restrict any use of the information to criminally investigate or prosecute any alcohol or drug abuse patient.[facility] HospitalIn the event this information is protected by the Federal Confidentiality of Alcohol and Drug Abuse Patient Records regulations: The Federal rules restrict any use of the information to criminally investigate or prosecute any alcohol or drug abuse patient.[facility] HospitalIn the event this information is protected by the Federal Confidentiality of Alcohol and Drug Abuse Patient Records regulations: The Federal rules restrict any use of the information to criminally investigate or prosecute any alcohol or drug abuse patient.[facility] HospitalIn the event this information is protected by the Federal Confidentiality of Alcohol and Drug Abuse Patient Records regulations: The Federal rules restrict any use of the information to criminally investigate or prosecute any alcohol or drug abuse patient.[facility] HospitalIn the event this information is protected by the Federal Confidentiality of Alcohol and Drug Abuse Patient Records regulations: The Federal rules restrict any use of the information to criminally investigate or prosecute any alcohol or drug abuse patient.[facility] HospitalIn the event this information is protected by the Federal Confidentiality of Alcohol and Drug Abuse Patient Records regulations: The Federal rules restrict any use of the information to criminally investigate or prosecute any alcohol or drug abuse patient.[facility] HospitalIn the event this information is protected by the Federal Confidentiality of Alcohol and Drug Abuse Patient Records regulations: The Federal rules restrict any use of the information to criminally investigate or prosecute any alcohol or drug abuse patient.[facility] HospitalIn the event this information is protected by the Federal Confidentiality of Alcohol and Drug Abuse Patient Records regulations: The Federal rules restrict any use of the information to criminally investigate or prosecute any alcohol or drug abuse patient.[facility] HospitalIn the event this information is protected by the Federal Confidentiality of Alcohol and Drug Abuse Patient Records regulations: The Federal rules restrict any use of the information to criminally investigate or prosecute any alcohol or drug abuse patient.[facility] HospitalIn the event this information is protected by the Federal Confidentiality of Alcohol and Drug Abuse Patient Records regulations: The Federal rules restrict any use of the information to criminally investigate or prosecute any alcohol or drug abuse patient.[facility] HospitalIn the event this information is protected by the Federal Confidentiality of Alcohol and Drug Abuse Patient Records regulations: The Federal rules restrict any use of the information to criminally investigate or prosecute any alcohol or drug abuse patient.[facility] HospitalIn the event this information is protected by the Federal Confidentiality of Alcohol and Drug Abuse Patient Records regulations: The Federal rules restrict any use of the information to criminally investigate or prosecute any alcohol or drug abuse patient.[facility] HospitalIn the event this information is protected by the Federal Confidentiality of Alcohol and Drug Abuse Patient Records regulations: The Federal rules restrict any use of the information to criminally investigate or prosecute any alcohol or drug abuse patient.[facility] HospitalIn the event this information is protected by the Federal Confidentiality of Alcohol and Drug Abuse Patient Records regulations: The Federal rules restrict any use of the information to criminally investigate or prosecute any alcohol or drug abuse patient.[facility] the event this information is protected by the Federal Confidentiality of Alcohol and Drug Abuse Patient Records regulations: The Federal rules restrict any use of the information to criminally investigate or prosecute any alcohol or drug abuse patient.[facility] HospitalIn the event this information is protected by the Federal Confidentiality of Alcohol and Drug Abuse Patient Records regulations: The Federal rules restrict any use of the information to criminally investigate or prosecute any alcohol or drug abuse patient.[facility] HospitalIn the event this information is protected by the Federal Confidentiality of Alcohol and Drug Abuse Patient Records regulations: The Federal rules restrict any use of the information to criminally investigate or prosecute any alcohol or drug abuse patient.[facility] HospitalIn the event this information is protected by the Federal Confidentiality of Alcohol and Drug Abuse Patient Records regulations: The Federal rules restrict any use of the information to criminally investigate or prosecute any alcohol or drug abuse patient.[facility] HospitalIn the event this information is protected by the Federal Confidentiality of Alcohol and Drug Abuse Patient Records regulations: The Federal rules restrict any use of the information to criminally investigate or prosecute any alcohol or drug abuse patient.[facility] Reason for Visit (unrecogniz ed section [...] Reason Comments request for medication Reason Comments [facility] Care Teams (unrecognized sec tion and content) Back End Developer Relationship Specialty Start Date End Date Kameron Caruso MD [address] [place] [address] PCP - General Family Practice 09/21/15 Back End Developer Relationship Specialty Start Date End Date Kameron Caruso MD [address] [place] [address] PCP - General Family Practice 09/21/15 Back End Developer Relationship Specialty Start Date End Date Kameron Caruso MD [address] [place] [address] PCP - General Family Practice 09/21/15 Back End Developer Relationship Specialty Start Date End Date Kameron Caruso MD [address] [place] [address] PCP - General Family Practice 09/21/15 Back End Developer Relationship Specialty Start Date End Date Kameron Caruso MD [address] [place] [address] PCP - General Family Practice 09/21/15 Back End Developer Relationship Specialty Start Date End Date Kameron Caruso MD [address] [place] [address] PCP - General Family Practice 09/21/15 Back End Developer Relationship Specialty Start Date End Date Kameron Caruso MD [address] [place] [address] PCP - General Family Medicine 09/21/15 Back End Developer Relationship Specialty Start Date End Date Kameron Caruso MD [address] [place] [address] PCP - General Family Medicine 09/21/15 Back End Developer Relationship Specialty Start Date End Date Kameron Caruso MD [address] [place] [address] PCP - General Family Medicine 09/21/15 Back End Developer Relationship Specialty Start Date End Date Kameron Caruso MD [address] [place] [address] PCP - General Family Medicine 09/21/15 Back End Developer Relationship Specialty Start Date End Date Kameron Caruso MD [address] [place] [address] PCP - General Family Medicine 09/21/15 Back End Developer Relationship Specialty Start Date End Date Kameron Caruso MD [address] [place] [address] PCP - General Family Medicine 09/21/15 Back End Developer Relationship Specialty Start Date End Date Kameron Caruso MD [address] [place] [address] PCP - General Family Medicine 09/21/15 Back End Developer Relationship Specialty Start Date End Date Kameron Caruso MD [address] [place] [address] PCP - General Family Medicine 09/21/15 Back End Developer Relationship Specialty Start Date End Date Kameron Caruso MD [address] [place] [address] PCP - General Family Medicine 09/21/15 Back End Developer Relationship Specialty Start Date End Date Kameron Caruso MD [address] [place] [address] PCP - General Family Medicine 09/21/15 Emma Sotomayor APRN.PER DIEM REGISTERED NURSE [address] [place] [address] [employer] Family Medicine 04/21/24 Mj Glover APRN.PER DIEM REGISTERED NURSE [address] [place] [address] [employer] Family Medicine 04/30/24 Back End Developer Relationship Specialty Start Date End Date Kameron Caruso MD [address] [place] [address] PCP - General Family Medicine 09/21/15 Emma Sotomayor APRN.PER DIEM REGISTERED NURSE [address] [place] [address] [employer] Family Medicine 04/21/24 Mj Glover APRN.PER DIEM REGISTERED NURSE [address] [place] [address] [employer] Family Medicine 04/30/24 Back End Developer Relationship Specialty Start Date End Date Kameron Caruso MD [address] [place] [address] PCP - General Family Medicine 09/21/15 Emma Sotomayor APRN.PER DIEM REGISTERED NURSE [address] [place] [address] [employer] Family Medicine 04/21/24 Mj Glover APRN.PER DIEM REGISTERED NURSE [address] [place] [address] [employer] Family Medicine 04/30/24 Back End Developer Relationship Specialty Start Date End Date Kameron Caruso MD [address] [place] [address] PCP - General Family Medicine 09/21/15 Emma Sotomayor APRN.PER DIEM REGISTERED NURSE [address] [place] [address] [employer] Family Medicine 04/21/24 Mj Glover APRN.PER DIEM REGISTERED NURSE [address] [place] [address] [employer] Family Medicine 04/30/24 Back End Developer Relationship Specialty Start Date End Date Kameron Caruso MD [address] [place] [address] PCP - General Family Medicine 09/21/15 Emma Sotomayor APRN.PER DIEM REGISTERED NURSE [address] [facility] [place] [address] [employer] Family Medicine 04/21/24 Mj Glover APRN.PER DIEM REGISTERED NURSE [address] [facility] [place] [address] [employer] Family Medicine 04/30/24 Back End Developer Relationship Specialty Start Date End Date Kameron Caruso MD [address] [facility] [place] [address] PCP - General Family Medicine 09/21/15 Emma Sotomayor APRN.PER DIEM REGISTERED NURSE [address] [facility] [place] [address] [employer] Family Medicine 04/21/24 Mj Glover APRN.PER DIEM REGISTERED NURSE [address] [facility] [place] [address] [employer] Family [facility] 04/30/24 Back End Developer Relationship Specialty Start Date End Date Kameron Caruso MD [address] [place] [address] PCP - General Family Medicine 09/21/15 Emma Sotomayor APRN.PER DIEM REGISTERED NURSE [address] [place] [address] [employer] Family [facility] 04/21/24 Mj Glover CATSHOVEL DRIVER.PER DIEM REGISTERED NURSE [address] [place] [address] [employer] [facility] 04/30/24 Team Status: Active Member Role Status Dates Dr. Kameron Caruso MD Primary Care Provider Active Team Status: Inactive Member Role Status Dates Dr. Kameron Caruso MD Primary Care Provider Active Start: August 02, 2024 End: August 02, 2024 Dr. Pieter Morgan MD Emergency Provider Active Start: August 02, 2024 End: August 02, 2024 Back End Developer Relationship Specialty Start Date End Date Kameron Caruso MD [address] [place] [address] PCP - General Family Medicine 08/03/24 Back End Developer Relationship Specialty Start Date End Date Kameron Caruso MD [address] [place] [address] PCP - General Family Medicine 09/21/15 Emma Sotomayor APRN.PER DIEM REGISTERED NURSE [address] [place] [address] [employer] Family Medicine 04/21/24 Mj Glover CATSHOVEL DRIVER.PER DIEM REGISTERED NURSE [address] [place] [address] [facility] 04/30/24 Team Status: Inactive Member [...] 2024 End: September 11, 2024 Bret Snyder CAN REPAIRER, CAN REPAIRER-C Attending Provider Active Start: September 11, 2024 [...] End: October 09, 2024 Bret Snyder NP, CAN REPAIRER-C Attending Provider Active Start: October 09, 2024 [...] 2024 End: October 30, 2024 Bret Snyder CAN REPAIRER, CAN REPAIRER-C Attending Provider Active Start: October 30, 2024 [...] Active Member Role/Relationship Status Dates Dr. Kameron Caurso MD Primary Care Provider Active Start: November [...] End: October 22, 2024 Bret Snyder NP, CAN REPAIRER-C Attending Provider Active Start: October 22, 2024 [...] End: October 30, 2024 Bret Snyder NP CAN REPAIRER-C Attending Provider Active Start: October 30, 2024 [...] End: October 30, 2024 Bret Snyder NP CAN REPAIRER-C Attending Provider Active Start: October 30, 2024 [...] 2024 End: September 11, 2024 Bret Snyder CAN REPAIRER, CAN REPAIRER-C Attending Provider Active Start: September 11, 2024 End: September 11, 2024 Team Status: Active Member Role/Relationship Status Dates Dr. Kameron Caruso MD Primary Care Provider Active Start: September 17, 2024 Safia VARGAS MD Attending Provider Active Start: September 17, 2024 Team Status: Active Member Role/Relationship Status Dates Dr. Kameron aCruso MD Primary Care Provider Active Start: September [...] End: October 09, 2024 Bret Snyder NP CAN REPAIRER-C Attending Provider Active Start: October 09, 2024 [...] End: October 22, 2024 Bret Snyder NP, CAN REPAIRER-C Attending Provider Active Start: October 22, 2024 End: October 22, 2024 Team Status: Inactive Member Role/Relationship Status Dates Dr. Kameron Caruso MD Primary Care Provider Active Start: October 29, 2024 End: October 29, 2024 Dr. Safia Ruelas MD Attending Provider Active Start: October 29, 2024 End: October 29, 2024 Team Status: Active Member Role/Relationship Status Dates Dr. Kameron Crauso MD Primary Care Provider Active Start: November 19, 2024 Safia VARGAS MD Attending Provider Active Start: November 19, 2024 Safia VARGAS MD Referring Provider Active Start: November 19, 2024 Team Status: Inactive Member Role/Relationship Status Dates Dr. Kameron Caruso MD Primary Care Provider Active Start: November 20, 2024 End: November 20, 2024 Bret Snyder CAN REPAIRER, CAN REPAIRER-C Attending Provider Active Start: November 20, 2024 [...] 2024 End: November 28, 2024 Bret Snyder CAN REPAIRER, CAN REPAIRER-C Attending Provider Active Start: November 28, 2024 [...] 2024 End: October 22, 2024 Bret Snyder CAN REPAIRER, CAN REPAIRER-C Attending physician Active Start: October 22, 2024 [...] 2024 End: October 30, 2024 Bret Snyder CAN REPAIRER, CAN REPAIRER-C Attending physician Active Start: October 30, 2024 [...] End: November 20, 2024 Bret Snyder NP, CAN REPAIRER-C Attending physician Active Start: November 20, 2024 [...] End: November 28, 2024 Bret Snyder NP, CAN REPAIRER-C Attending physician Active Start: November 28, 2024 [...] End: November 20, 2024 Bret Snyder NP CAN REPAIRER-C Attending physician Active Start: November 20, 2024 [...] End: November 28, 2024 Bret Snyder NP CAN REPAIRER-C Attending physician Active Start: November 28, 2024 [...] Status Dates Dr. Kameron aCruso MD Primary care physician Active Start: March [...] HOURS, First dose (after last modification) on Mon08/03/24 at 1800, Until Discontinued, Correction factor parameters [...] Eng RN)[id number] (Rate/Dose Verify - Provider: Shaila Eng, RN) [id number] (New Feeding/Supplement - Provider: Shaila [...] 50% needed, contact pharmacy or obtain from [facility] cart ++ diphenhydrAMINE (BENADRYL) tablet [...] is greater than 200mg/dl, then notify house nurse. And BLOOD GLUCOSE (POC DEVICE) (CANCELED) Routine, [...] 50% needed, contact pharmacy or obtain from [facility] cart ++ And glucose (GLUTOSE) [...] at 1301, Until Specified, Who to Notify: Body Bumper, For all Blood Glucose LESS THAN 80 mg/dl, notify Body Bumper after treatment per Hypoglycemia in Non- Adults [...] BE BASED ON THE PRIMARY CLINICAL RECORDS. [facility]. provides no warranty or guarantee of the accuracy or completeness of information in this document.
[2025-04-08 07:05] LABS: Hematocrit 34.6 % (37-47); Hemoglobin 11.2 g/dL (12.0-15.0); Immature Granulocytes Count 0.040 X10^3/uL (0.0-0.0); Mean Corp Hgb Conc 32.4 g/dL (32-36); Mean Corpuscular Volume 93.8 fL (81-99); Mean Platelet Vol. 11.6 fl (6.2-12.0); NRBC Flagged by Analyzer 0 % (0-5); Platelet Count 295 K/mm3 (150-450); RBC Distribution Width CV 13.8 % (11.6-14.6); RBC Distribution Width SD 47.3 fl (35.1-43.9); Red Blood Count 3.69 M/mm3 (4.2-5.4); White Blood Count 8.1 K/mm3 (4.4-11.0)
[2025-04-08 07:40] LABS: Anion Gap 11 (5-15); BUN 17 mg/dL (4-19); BUN/Creat Ratio 20.3 RATIO (10-20); Calcium,Total 8.9 mg/dL (7.6-11.0); Carbon Dioxide 25.3 mmol/L (21.0-32.0); Chloride 103 mmol/L (98-108); Glucose 115 mg/dL (70-99); Potassium 3.9 mmol/L (3.3-5.1)
== END ==
LOC: OLS.WHLTCC 05:00
PROVIDERS: PCP Family Medicine; Visit Provider Internal Medicine
DX: E11.9 Type 2 diabetes mellitus without complications (principal); I10 Essential (primary) hypertension; I69.354 Hemiplegia and hemiparesis following cerebral infarction affecting left non-dominant side; I69.391 Dysphagia following cerebral infarction
CPT/HCPCS: 36415; 80048; 84443; 85025

== ENCOUNTER → 2025-04-15 05:00 | Outpatient (REF) | payer MEDICARE, SELFPAY ==
--- OUTSIDE RECORDS SUMMARY | 2025-04-15 03:53 | XMS RPT_ITS | CCD ---
Author Organization [facility] Care Team Providers Care Automatic Embroidery Machine Tender Name Role Phone KETTY DOWNS Attending Unavailable [...] Kameron Caruso MD Primary Care Provider Светлана STAMP CLASSIFIER.Emma TUCKER Unavailable Saurav STAMP CLASSIFIER.Mj TUCKER Unavailable JUVENTINO ROGERS Attending Unavailable JUVENTINO ROGERS Admitting Unavailable CATA ALFRED Attending Unavailable CATA ALFRED Admitting Unavailable Dr. Kameron Caruso MD Primary Care Provider Dr. Pieter Morgan MD Emergency Provider Kameron Caruso MD Primary Care Provider Светлана STAMP CLASSIFIER.Emma TUCKER Unavailable Unavail able KAMERON CARUSO Referring [...] Dr. Safia Ruelas MD Attending Provider Claudio WEB PUBLISHER-CBret Attending Provider Safia Ruelas MD Referring Provider UnavailDr. Kameron Marquez MD Primary Care Provider Safia Ruelas MD Attending Provider UnavailDr. Safia Ulloa MD Attending Provider Claudio WEB PUBLISHER-C, Bret Attending Provider Safia Ruelas MD Referring Provider UnavailDr. Kameron Marquez MD Referring Provider Dr. Mj Benavides MD Attending Provider Dr. Kameron Caruso MD Primary Care Physician Safia Ruelas MD Attending Physician Unavail able Claudio WEB PUBLISHER-CBret Attending Physician Dr. Safia Ruelas MD Attending Physician Safia Ruelas MD Referring Provider Alexandra CARUSO MD, DR MELO Primary Care Unavailab shital PEARL DO, SILVINO Admitting Unavailable DAE DO, SILVINO Attending Unavailable BRYON LAWSON, DR REECE Consulting Unavailab shital CORRINE DO, NANDO Consulting Unavailable SUDARSHAN STAMP CLASSIFIER-BRONC BUSTER, AMI Hwang Consulting Unavailjair GIBSON PhD, MATTHEW Zamudio Consulting Unavailable Zuly LAWSON, Dr. Melo Primary Care Physician Safia Ruelas MD Attending Physician Unavail able Claudio CASH-CBret Attending Physician Jessenia LAWSON, Dr. Baig Attending Physician [phone] Kameron Caruso Primary Care Unavailable Oleghe OLS, [...] Kameron Jolley Primary Care Unavailable Kameron Caruso Primary Care Unavailable Pieter Morgan [...] Unavailable Elderbrock, Kameron Primary Care Unavailable Tickton WEB PUBLISHER, Bret Attending Unavailable Oleghe OLS, Efewongbe Attending Unavailabl e Elderbrock, Kameron Primary Care Unavailable Elderbrock, Kameron Primary Care Unavailable Oleghe, Efewongbe Attending Unavailable Elderbrock, Kameron Primary Care Unavailable Mj Benavides Attending Unavailable Elderbrock, Kameron Referring Unavailable Elderbrock, Kameron Primary Care Unavailable Oleghe, Efewongbe Attending Unavailable Tickton WEB PUBLISHER, Bret Attending Unavailable Elderbrock, Kameron Primary Care Unavailable Tickton WEB PUBLISHER, Bret Attending Unavailable Elderbrock, Kameron Primary Care Unavailable Oleghe, Efewongbe Attending Unavailable Elderbrock, Kameron Primary Care Unavailable Tickton WEB PUBLISHER, Bret Attending Unavailable Elderbrock, Kameron Primary Care Unavailable Tickton WEB PUBLISHER, Bret Attending Unavailable Elderbrock, Kameron Primary Care Unavailable Elderbrock, Kameron Primary Care Unavailable [place]ickton WEB PUBLISHER, Bret Attending Unavailable Oleghe OLS, Efewongbe Attending [...] reactions to drug 6 Other (See Comments) [place], [place] (2 sources) Other Propensity to adverse reactions 6 Shortness Of Breath [place], [place] (20 sources) Benzocaine; Translations: [BENZOCAINE] Drug Allergy 6 Rash [facility] Work Phone: (20 sources) Cocaine; Translations: [COCAINE] Drug Allergy 9 Inverted T waves [facility] Work Phone: (20 sources) Sulfonamides (Antibiotic); Translations: [SULFA (SULFONAMIDE ANTIBIOTICS)] Propensity to adverse reactions 6 Intolerance [facility] Work Phone: (20 sources) Perfumes; Translations: [PERFUMES] Propensity to adverse reactions 6 Shortness of Breath [facility] Work Phone: (13 sources) Sulfonamides (Antibiotic) Allergy to substance 5 Unknown [facility] (15 sources) perfume; Translations: [perfume] Allergy to substance 5 Shortness of breath [facility] (1 source) Cocaine; Translations: [cocaine nasal] Drug Allergy [facility] (1 source) Codeine; Translations: [codeine] Drug Allergy Pharyngeal swelling (finding) [facility] (1 source) Sulfonamide; Translations: [sulfa drugs] Drug allergy [facility] (1 source) Benzocaine Drug Allergy 5 [facility] (1 source) Cocaine Drug Allergy 5 [facility] (1 source) Sulfonamides (Antibiotic) Drug allergy (disorder) 5 [facility] Medications Current Medications Medication Drug [...] kidney disease, unspecified CKD stage, unspecified whether termination clerk insulin 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 Take 1 tablet by [facility] once daily atovaquone 250 mg / proguanil [...] Comment on above: Take 1 tablet by [facility] once daily. Start medication 2 days prior [...] kidney disease, unspecified CKD stage, unspecified whether termination clerk insulin use (HCC) Take 1 tablet by [...] capsules by m outh once daily sennosides, skilled nursing 8.6 mg oral tablet (2 sources) Start: 08-09-2024 End: 08-15-2024 Start: 08-04-2024 End: 08-09-2024 triamcinolone acetonide 0.97727 mg/mg topical ointment (3 sources) Corticosteroid Start: [...] is greater than 200mg/dl, then notify greenhouse staff. [Order 2 End] [Order 3 Start] Name: [...] at 1301, Until Specified, Who to Notify: Refrigerator Mover, For all Blood Glucose LESS THAN 80 mg/dl, notify Refrigerator Mover after treatment per Hypoglycemia in Non- Adults [...] Coronary arteriosclerosis; Translations: [Atherosclerotic heart disease of [place] coronary artery without angina pectoris] Onset: 5 [...] aftercare (13 sources) 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; Translations: [exterminator termite (current) use of anticoagulants] 08-02-2024 Episodic Other [...] Onset: 08-15-2024 Episodic Other aftercare (1 source) long-term (current) use of aspirin; Translations: [long-term (current) use of aspirin] Onset: 08-15-2024 Episodic Other aftercare (1 source) long-term (current) use of anticoagulants; Translations: [exterminator termite (current) use of anticoagulants] Onset: 08-15-2024 Episodic Other aftercare (1 source) exterminator termite (current) use of oral hypoglycemic drugs; Translations: [exterminator termite (current) use of oral hypoglycemic drugs] Onset: [...] Auto (Unsp spec) [#/Vol] 2.89 10*3/uL 0.83-4.51 [facility] Anion gap in Serum or Plasma Ordered By: Safia Ruelas on 03-04-2025 Anion gap [Moles/Vol] 12 mmol/L 5-15 [facility] Automated lymphocyte count a s percentage of total leukocytesOrdered By: Safia Ruelas on 03-04-2025 Lymphocytes/100 WBC Auto (Unsp spec) 32.0 % 19- [facility] BUN/creatinine ratioOrdered By: Safia Ruelas on 03-04-2025 Urea nitrogen/Creatinine [Mass ratio] 28.8 mg/mg High 10- [facility] Basophil percentageOrdered B y: Safia Ruelas on 03-04-2025 Basophils/100 WBC (Bld) 0.7 % 0-[address] [facility] Carbon dioxide, total [Moles /volume] in Central venous bloodOrdered By: Safia Ruelas on 03-04-2025 CO2 [Moles/Vol] 25.6 mmol/L 21.0-32.0 [facility] Chloride assayOrdered By: Balbir Ruelas on 03-04-2025 Chloride [Moles/Vol] 104 mmol/L 98-108 [facility] Eosinophil percentageOrdered By: Safia Ruelas on 03-04-2025 Eosinophils/100 WBC (Bld) 2.1 % 0-5 [facility] Erythrocyte distribution wid th ratioOrdered By: Safia Ruelas on 03-04-2025 Erythrocyte distribution width (RBC) [Ratio] 14.5 % 11.6-14.6 [facility] Erythrocyte distribution wid th standard deviationOrdered By: Safia Ruelas on 03-04-2025 Erythrocyte distribution width (RBC) [Ratio] 50.6 fl High 35.1-43.9 [facility] Glomerular filtration rate ( GFR) estimation/1.73 sq m using serum, plasma, or whole bOrdered By: Safia Ruelas on 03-04-2025 GFR/1.73 sq M.predicted among non-blacks MDRD (S/P/Bld) [Vol rate/Area] 73 mL/min/{1.73_m2} >60 [facility] Hematocrit Auto (Bld) [Volum e fraction]Ordered By: Safia Ruelas on 03-04-2025 Hematocrit (Bld) [Volume fraction] 38.1 % 37-47 [facility] Hemoglobin measurementOrdere d By: Safia Ruelas on 03-04-2025 Hemoglobin (Bld) [Mass/Vol] 12.0 g/dL 12.0-15.0 [facility] Immature granulocytes/100 WB C Auto (Bld)Ordered By: Safia Ruelas on 03-04-2025 Immature granulocytes/100 WBC (Bld) 0.300 % 0.0-0.9 [facility] MCV (mean corpuscular volume ) determinationOrdered By: Safia Ruelas on 03-04-2025 MCV (RBC) [Entitic vol] 94.1 fL 81-[address] [facility] Mean corpuscular hemoglobin (MCH) determinationOrdered By: Safia Ruelas on 03-04-2025 MCH (RBC) [Entitic mass] 29.6 pg 27.0-32.0 [facility] Monocyte percentageOrdered B y: Safia Ruelas on 03-04-2025 Monocytes/100 WBC (Bld) 8.5 % 0-[address] [facility] Neutrophil percentageOrdered By: Safia Ruelas on 03-04-2025 Neutrophils/100 WBC (Bld) 56.4 % 47-70 [facility] Platelet countOrdered By: Balbir Ruelas on 03-04-2025 Platelets (Bld) [#/Vol] 246 10*3/uL 150-450 [facility] Potassium measurement (mass/ volume)Ordered By: Safia Ruelas on 03-04-2025 Potassium (Unsp spec) [Mass/Vol] 3.9 mmol/L 3.3-5.1 [facility] RBC Auto (Bld) [#/Vol]Ordere d By: Safia Ruelas on 03-04-2025 RBC (Bld) [#/Vol] 4.05 10*6/uL Low 4.2-5.4 [facility] Serum creatinine measurement (mass/volume)Ordered By: Safia Ruelas on 03-04-2025 Creatinine [Mass/Vol] 0.82 mg/dL 0.70-1.20 [facility] Serum glucose measurement (m ass/volume)Ordered By: Safia Ruelas on 03-04-2025 Glucose [Mass/Vol] 157 mg/dL High 70-99 [facility] Serum or plasma calcium dayna urement (mass/volume)Ordered By: Safia Ruelas on 03-04-2025 Calcium [Mass/Vol] 9.4 mg/dL 7.6-11.0 [facility] Serum or plasma urea nitroge n measurement (mass/volume)Ordered By: Safia Ruelas on 03-04-2025 Urea nitrogen [Mass/Vol] 24 mg/dL High 4-19 [facility] Sodium levelOrdered By: Leonides Ruelas on 03-04-2025 Sodium [Moles/Vol] 142 mmol/L 133-145 [facility] White blood cell (WBC) count Ordered By: Safia Ruelas on 03-04-2025 WBC (Bld) [#/Vol] 9.0 10*3/uL 4.4-11.0 [facility] Absolute lymphocyte countOrd ered By: Safia Ruelas on 02-25-2025 Lymphocytes Auto (Unsp spec) [#/Vol] 3.32 10*3/uL 0.83-4.51 [facility] Anion gap in Serum or Plasma Ordered By: Safia Ruelas on 02-25-2025 Anion gap [Moles/Vol] 12 mmol/L 5-15 [facility] Automated lymphocyte count a s percentage of total leukocytesOrdered By: Safia Ruelas on 02-25-2025 Lymphocytes/100 WBC Auto (Unsp spec) 36.7 % 19- [facility] BUN/creatinine ratioOrdered By: Safia Ruelas on 02-25-2025 Urea nitrogen/Creatinine [Mass ratio] 20.5 mg/mg High 10- [facility] Basophil percentageOrdered B y: Safia Ruelas on 02-25-2025 Basophils/100 WBC (Bld) 0.6 % 0-1 [facility] Carbon dioxide, total [Moles /volume] in Central venous bloodOrdered By: Safia Ruelas on 02-25-2025 CO2 [Moles/Vol] 25.9 mmol/L 21.0-32.0 [facility] Chloride assayOrdered By: Balbir Ruelas on 02-25-2025 Chloride [Moles/Vol] 103 mmol/L 98-108 [facility] Eosinophil percentageOrdered By: sherry Ruelas on 02-25-2025 Eosinophils/100 WBC (Bld) 2.2 % 0-5 [facility] Erythrocyte distribution wid th ratioOrdered By: Safia Westonmelanie on 02-25-2025 Erythrocyte distribution width (RBC) [Ratio] 14.3 % 11.6-14.6 [facility] Erythrocyte distribution wid th standard deviationOrdered By: Safia Ruelas on 02-25-2025 Erythrocyte distribution width (RBC) [Ratio] 48.5 fl High 35.1-43.9 [facility] Glomerular filtration rate ( GFR) estimation/1.73 sq m using serum, plasma, or whole bOrdered By: Safia Cheobonimelanie on 02-25-2025 GFR/1.73 sq M.predicted among non-blacks MDRD (S/P/Bld) [Vol rate/Area] 75 mL/min/{1.73_m2} >60 [facility] Hematocrit Auto (Bld) [Volum e fraction]Ordered By: Safia Ruelas on 02-25-2025 Hematocrit (Bld) [Volume fraction] 39.0 % 37-47 [facility] Hemoglobin measurementOrdere d By: Safia Ruelas on 02-25-2025 Hemoglobin (Bld) [Mass/Vol] 12.3 g/dL 12.0-15.0 [facility] Immature granulocytes/100 WB C Auto (Bld)Ordered By: Safia Cheobonimelanie on 02-25-2025 Immature granulocytes/100 WBC (Bld) 0.400 % 0.0-0.9 [facility] MCV (mean corpuscular volume ) determinationOrdered By: Safia Cheobonimelanie on 02-25-2025 MCV (RBC) [Entitic vol] 92.4 fL 81-[address] [facility] Mean corpuscular hemoglobin (MCH) determinationOrdered By: Safia Ruelas on 02-25-2025 MCH (RBC) [Entitic mass] 29.1 pg 27.0-32.0 [facility] Monocyte percentageOrdered B y: Safia Ruelas on 02-25-2025 Monocytes/100 WBC (Bld) 7.7 % 0-[address] [facility] Neutrophil percentageOrdered By: Safia Ruelas on 02-25-2025 Neutrophils/100 WBC (Bld) 52.4 % 47-70 [facility] Platelet countOrdered By: Balbir Ruelas on 02-25-2025 Platelets (Bld) [#/Vol] 257 10*3/uL 150-450 [facility] Potassium measurement (mass/ volume)Ordered By: Safia Ruelas on 02-25-2025 Potassium (Unsp spec) [Mass/Vol] 3.5 mmol/L 3.3-5.1 [facility] RBC Auto (Bld) [#/Vol]Ordere d By: Safia Ruelas on 02-25-2025 RBC (Bld) [#/Vol] 4.22 10*6/uL 4.2-5.4 [facility] Serum creatinine measurement (mass/volume)Ordered By: Safia Ruelas on 02-25-2025 Creatinine [Mass/Vol] 0.80 mg/dL 0.70-1.20 [facility] Serum glucose measurement (m ass/volume)Ordered By: Safia Ruelas on 02-25-2025 Glucose [Mass/Vol] 121 mg/dL High 70-99 [facility] Serum or plasma calcium dayna urement (mass/volume)Ordered By: Safia Ruelas on 02-25-2025 Calcium [Mass/Vol] 9.2 mg/dL 7.6-11.0 [facility] Serum or plasma urea nitroge n measurement (mass/volume)Ordered By: Safia Ruelas on 02-25-2025 Urea nitrogen [Mass/Vol] 16 mg/dL 4-19 [facility] Sodium levelOrdered By: Leonides jiménezradha Jessenia on 02-25-2025 Sodium [Moles/Vol] 140 mmol/L 133-145 [facility] TSH DL <= 0.005 mIU/L QnOrde red By: Safia Ruelas on 02-25-2025 TSH Qn 0.226 uIU/mL Low 0.300-4.200 [facility] White blood cell (WBC) count Ordered By: Safia Ruelas on 02-25-2025 WBC (Bld) [#/Vol] 9.0 10*3/uL 4.4-11.0 [facility] Absolute lymphocyte countOrd ered By: Safia Ruelas on 02-18-2025 Lymphocytes Auto (Unsp spec) [#/Vol] 1.78 10*3/uL 0.83-4.51 [facility] Anion gap in Serum or Plasma Ordered By: Safia Ruelas on 02-18-2025 Anion gap [Moles/Vol] 13 mmol/L 5-15 [facility] Automated lymphocyte count a s percentage of total leukocytesOrdered By: Safia Ruelas on 02-18-2025 Lymphocytes/100 WBC Auto (Unsp spec) 22.5 % 19-41 [facility] BUN/creatinine ratioOrdered By: Safia Ruelas on 02-18-2025 Urea nitrogen/Creatinine [Mass ratio] 23.7 mg/mg High 10-20 [facility] Basophil percentageOrdered B y: Safia Ruelas on 02-18-2025 Basophils/100 WBC (Bld) 0.4 % 0-[address] [facility] Carbon dioxide, total [Moles /volume] in Central venous bloodOrdered By: Safia Ruelas on 02-18-2025 CO2 [Moles/Vol] 23.2 mmol/L 21.0-32.0 [facility] Chloride assayOrdered By: Balbir Ruelas on 02-18-2025 Chloride [Moles/Vol] 102 mmol/L 98-108 [facility] Eosinophil percentageOrdered By: Safia Ruelas on 02-18-2025 Eosinophils/100 WBC (Bld) 0.4 % 0-5 [facility] Erythrocyte distribution wid th ratioOrdered By: Safia Ruelas on 02-18-2025 Erythrocyte distribution width (RBC) [Ratio] 14.3 % 11.6-14.6 [facility] Erythrocyte distribution wid th standard deviationOrdered By: Safia Ruelas on 02-18-2025 Erythrocyte distribution width (RBC) [Ratio] 48.0 fl High 35.1-43.9 [facility] Glomerular filtration rate ( GFR) estimation/1.73 sq m using serum, plasma, or whole bOrdered By: Safia Ruelas on 02-18-2025 GFR/1.73 sq M.predicted among non-blacks MDRD (S/P/Bld) [Vol rate/Area] 76 mL/min/{1.73_m2} >60 [facility] Hematocrit Auto (Bld) [Volum e fraction]Ordered By: Safia Ruelas on 02-18-2025 Hematocrit (Bld) [Volume fraction] 39.0 % 37-47 [facility] Hemoglobin measurementOrdere d By: Safia Ruelas on 02-18-2025 Hemoglobin (Bld) [Mass/Vol] 12.5 g/dL 12.0-15.0 [facility] Immature granulocytes/100 WB C Auto (Bld)Ordered By: Safia Ruelas on 02-18-2025 Immature granulocytes/100 WBC (Bld) 0.300 % 0.0-0.9 [facility] MCV (mean corpuscular volume ) determinationOrdered By: Safai Ruelas on 02-18-2025 MCV (RBC) [Entitic vol] 92.2 fL 81-[address] [facility] Mean corpuscular hemoglobin (MCH) determinationOrdered By: Safia Ruelas on 02-18-2025 MCH (RBC) [Entitic mass] 29.6 pg 27.0-32.0 [facility] Monocyte percentageOrdered B y: Safia Ruelas on 02-18-2025 Monocytes/100 WBC (Bld) 4.8 % 0-[address] [facility] Neutrophil percentageOrdered By: Safia Ruelas on 02-18-2025 Neutrophils/100 WBC (Bld) 71.6 % High 47-70 [facility] Platelet countOrdered By: Balbir Ruelas on 02-18-2025 Platelets (Bld) [#/Vol] 263 10*3/uL 150-450 [facility] Potassium measurement (mass/ volume)Ordered By: Safia Ruelas on 02-18-2025 Potassium (Unsp spec) [Mass/Vol] 4.1 mmol/L 3.3-5.1 [facility] RBC Auto (Bld) [#/Vol]Ordere d By: Safia Ruelas on 02-18-2025 RBC (Bld) [#/Vol] 4.23 10*6/uL 4.2-5.4 [facility] Serum creatinine measurement (mass/volume)Ordered By: Safia Ruelas on 02-18-2025 Creatinine [Mass/Vol] 0.79 mg/dL 0.70-1.20 [facility] Serum glucose measurement (m ass/volume)Ordered By: Safia Ruelas on 02-18-2025 Glucose [Mass/Vol] 165 mg/dL High 70-99 [facility] Serum or plasma calcium dayna urement (mass/volume)Ordered By: Safia Ruelas on 02-18-2025 Calcium [Mass/Vol] 9.2 mg/dL 7.6-11.0 [facility] Serum or plasma urea nitroge n measurement (mass/volume)Ordered By: Safia Ruelas on 02-18-2025 Urea nitrogen [Mass/Vol] 19 mg/dL 4-19 [facility] Sodium levelOrdered By: Leonides Ruelas on 02-18-2025 Sodium [Moles/Vol] 138 mmol/L 133-145 [facility] White blood cell (WBC) count Ordered By: Balbirjean mariejosé antonio Cheoquyen on 02-18-2025 WBC (Bld) [#/Vol] 7.9 10*3/uL 4.4-11.0 [facility] Absolute lymphocyte countOrd ered By: Safia Ruelas on 02-11-2025 Lymphocytes Auto (Unsp spec) [#/Vol] 2.71 10*3/uL 0.83-4.51 [facility] Anion gap in Serum or Plasma Ordered By: Balbirjean mariejosé antonio Cheobonimelanie on 02-11-2025 Anion gap [Moles/Vol] 14 mmol/L 5-15 [facility] Automated lymphocyte count a s percentage of total leukocytesOrdered By: Safia Cheoquyen on 02-11-2025 Lymphocytes/100 WBC Auto (Unsp spec) 36.1 % 19-41 [facility] BUN/creatinine ratioOrdered By: Balbirjean mariejosé antonio Cheoquyen on 02-11-2025 Urea nitrogen/Creatinine [Mass ratio] 23.1 mg/mg High 10-20 [facility] Basophil percentageOrdered B y: Safia Ruelas on 02-11-2025 Basophils/100 WBC (Bld) 0.7 % 0-[address] [facility] Carbon dioxide, total [Moles /volume] in Central venous bloodOrdered By: Safia Cheobonimelanie on 02-11-2025 CO2 [Moles/Vol] 21.6 mmol/L 21.0-32.0 [facility] Chloride assayOrdered By: Balbir randallskye Griderbonimelanie on 02-11-2025 Chloride [Moles/Vol] 103 mmol/L 98-108 [facility] Eosinophil percentageOrdered By: Safia Ruelas on 02-11-2025 Eosinophils/100 WBC (Bld) 2.0 % 0-5 [facility] Erythrocyte distribution wid th ratioOrdered By: jean mariemount pleasantskye Ruelas on 02-11-2025 Erythrocyte distribution width (RBC) [Ratio] 14.4 % 11.6-14.6 [facility] Erythrocyte distribution wid th standard deviationOrdered By: jean mariemount pleasantskye Ruelas on 02-11-2025 Erythrocyte distribution width (RBC) [Ratio] 47.5 fl High 35.1-43.9 [facility] Glomerular filtration rate ( GFR) estimation/1.73 sq m using serum, plasma, or whole bOrdered By: sherry Ruelas on 02-11-2025 GFR/1.73 sq M.predicted among non-blacks MDRD (S/P/Bld) [Vol rate/Area] 72 mL/min/{1.73_m2} >60 [facility] Hematocrit Auto (Bld) [Volum e fraction]Ordered By: Safia Ruelas on 02-11-2025 Hematocrit (Bld) [Volume fraction] 37.4 % 37-47 [facility] Hemoglobin measurementOrdere d By: jean mariemount pleasantskye Ruelas on 02-11-2025 Hemoglobin (Bld) [Mass/Vol] 12.4 g/dL 12.0-15.0 [facility] Immature granulocytes/100 WB C Auto (Bld)Ordered By: Safia Ruelas on 02-11-2025 Immature granulocytes/100 WBC (Bld) 0.400 % 0.0-0.9 [facility] MCV (mean corpuscular volume ) determinationOrdered By: Safia Ruelas on 02-11-2025 MCV (RBC) [Entitic vol] 90.3 fL 81-[address] [facility] Mean corpuscular hemoglobin (MCH) determinationOrdered By: [facility] R[facility] on 02-11-2025 MCH (RBC) [Entitic mass] 30.0 pg 27.0-32.0 [facility] Monocyte percentageOrdered B y: Safia Ruelas on 02-11-2025 Monocytes/100 WBC (Bld) 6.8 % 0-10 [facility] Neutrophil percentageOrdered By: Safia Ruelas on 02-11-2025 Neutrophils/100 WBC (Bld) 54.0 % 47-70 [facility] Platelet countOrdered By: Balbir Ruelas on 02-11-2025 Platelets (Bld) [#/Vol] 260 10*3/uL 150-450 [facility] Potassium measurement (mass/ volume)Ordered By: Safia Ruelas on 02-11-2025 Potassium (Unsp spec) [Mass/Vol] 3.6 mmol/L 3.3-5.1 [facility] RBC Auto (Bld) [#/Vol]Ordere d By: Safia Ruelas on 02-11-2025 RBC (Bld) [#/Vol] 4.14 10*6/uL Low 4.2-5.4 [facility] Serum creatinine measurement (mass/volume)Ordered By: Safia Ruelas on 02-11-2025 Creatinine [Mass/Vol] 0.83 mg/dL 0.70-1.20 [facility] Serum glucose measurement (m ass/volume)Ordered By: Safia Ruelas on 02-11-2025 Glucose [Mass/Vol] 110 mg/dL High 70-99 [facility] Serum or plasma calcium dayna urement (mass/volume)Ordered By: Safia Ruelas on 02-11-2025 Calcium [Mass/Vol] 9.1 mg/dL 7.6-11.0 [facility] Serum or plasma urea nitroge n measurement (mass/volume)Ordered By: Safia Ruelas on 02-11-2025 Urea nitrogen [Mass/Vol] 19 mg/dL 4-19 [facility] Sodium levelOrdered By: Leonides Ruelas on 02-11-2025 Sodium [Moles/Vol] 139 mmol/L 133-145 [facility] White blood cell (WBC) count Ordered By: Safia Ruelas on 02-11-2025 WBC (Bld) [#/Vol] 7.5 10*3/uL 4.4-11.0 [facility] Absolute lymphocyte countOrd ered By: Safia Ruelas on 02-04-2025 Lymphocytes Auto (Unsp spec) [#/Vol] 3.03 10*3/uL 0.83-4.51 [facility] Anion gap in Serum or Plasma Ordered By: Safia Ruelas on 02-04-2025 Anion gap [Moles/Vol] 12 mmol/L 5-15 [facility] Automated lymphocyte count a s percentage of total leukocytesOrdered By: Safia Ruelas on 02-04-2025 Lymphocytes/100 WBC Auto (Unsp spec) 36.1 % 19-41 [facility] BUN/creatinine ratioOrdered By: Safia Ruelas on 02-04-2025 Urea nitrogen/Creatinine [Mass ratio] 21.0 mg/mg High 10-20 [facility] Basophil percentageOrdered B y: Safia Ruelas on 02-04-2025 Basophils/100 WBC (Bld) 0.7 % 0-1 [facility] Carbon dioxide, total [Moles /volume] in Central venous bloodOrdered By: Safia Ruelas on 02-04-2025 CO2 [Moles/Vol] 23.5 mmol/L 21.0-32.0 [facility] Chloride assayOrdered By: Balbir Ruelas on 02-04-2025 Chloride [Moles/Vol] 103 mmol/L 98-108 [facility] Eosinophil percentageOrdered By: Safia Ruelas on 02-04-2025 Eosinophils/100 WBC (Bld) 2.3 % 0-5 [facility] Erythrocyte distribution wid th ratioOrdered By: Safia Ruelas on 02-04-2025 Erythrocyte distribution width (RBC) [Ratio] 14.5 % 11.6-14.6 [facility] Erythrocyte distribution wid th standard deviationOrdered By: sherry Ruelas on 02-04-2025 Erythrocyte distribution width (RBC) [Ratio] 47.8 fl High 35.1-43.9 [facility] Glomerular filtration rate ( GFR) estimation/1.73 sq m using serum, plasma, or whole bOrdered By: Safia Ruelas on 02-04-2025 GFR/1.73 sq M.predicted among non-blacks MDRD (S/P/Bld) [Vol rate/Area] 85 mL/min/{1.73_m2} >60 [facility] Hematocrit Auto (Bld) [Volum e fraction]Ordered By: Safia Westonmelanie on 02-04-2025 Hematocrit (Bld) [Volume fraction] 38.3 % 37-47 [facility] Hemoglobin measurementOrdere d By: Safia Ruelas on 02-04-2025 Hemoglobin (Bld) [Mass/Vol] 12.4 g/dL 12.0-15.0 [facility] Immature granulocytes/100 WB C Auto (Bld)Ordered By: jean mariejosé antonio Cheoquyen on 02-04-2025 Immature granulocytes/100 WBC (Bld) 0.400 % 0.0-0.9 [facility] MCV (mean corpuscular volume ) determinationOrdered By: Balbirjean mariemount pleasantskye Cheobonimelanie on 02-04-2025 MCV (RBC) [Entitic vol] 90.3 fL 81-[address] [facility] Mean corpuscular hemoglobin (MCH) determinationOrdered By: sherry Ruelas on 02-04-2025 MCH (RBC) [Entitic mass] 29.2 pg 27.0-32.0 [facility] Monocyte percentageOrdered B y: Safia Ruelas on 02-04-2025 Monocytes/100 WBC (Bld) 7.9 % 0-[address] [facility] Neutrophil percentageOrdered By: jean mariemount pleasantskye Ruelas on 02-04-2025 Neutrophils/100 WBC (Bld) 52.6 % 47-70 [facility] Platelet countOrdered By: Balbir Ruelas on 02-04-2025 Platelets (Bld) [#/Vol] 278 10*3/uL 150-450 [facility] Potassium measurement (mass/ volume)Ordered By: Safia Ruelas on 02-04-2025 Potassium (Unsp spec) [Mass/Vol] 3.4 mmol/L 3.3-5.1 [facility] RBC Auto (Bld) [#/Vol]Ordere d By: Safia Ruelas on 02-04-2025 RBC (Bld) [#/Vol] 4.24 10*6/uL 4.2-5.4 [facility] Serum creatinine measurement (mass/volume)Ordered By: Safia Ruelas on 02-04-2025 Creatinine [Mass/Vol] 0.71 mg/dL 0.70-1.20 [facility] Serum glucose measurement (m ass/volume)Ordered By: Safia Griderbonimelanie on 02-04-2025 Glucose [Mass/Vol] 141 mg/dL High 70-99 [facility] Serum or plasma calcium dayna urement (mass/volume)Ordered By: Safia Ruelas on 02-04-2025 Calcium [Mass/Vol] 9.0 mg/dL 7.6-11.0 [facility] Serum or plasma urea nitroge n measurement (mass/volume)Ordered By: Safia Griderbonimelanie on 02-04-2025 Urea nitrogen [Mass/Vol] 15 mg/dL 4-19 [facility] Sodium levelOrdered By: Leonides josé antonio Jessenia on 02-04-2025 Sodium [Moles/Vol] 139 mmol/L 133-145 [facility] White blood cell (WBC) count Ordered By: Safia Griderbonimelanie on 02-04-2025 WBC (Bld) [#/Vol] 8.4 10*3/uL 4.4-11.0 [facility] Absolute lymphocyte countOrd ered By: Safia Ruelas on 01-28-2025 Lymphocytes Auto (Unsp spec) [#/Vol] 3.03 10*3/uL 0.83-4.51 [facility] Anion gap in Serum or Plasma Ordered By: Safia Ruelas on 01-28-2025 Anion gap [Moles/Vol] 12 mmol/L 5-15 [facility] Automated lymphocyte count a s percentage of total leukocytesOrdered By: Safia Ruelas on 01-28-2025 Lymphocytes/100 WBC Auto (Unsp spec) 36.0 % - [facility] BUN/creatinine ratioOrdered By: Safia Griderbonimelanie on 01-28-2025 Urea nitrogen/Creatinine [Mass ratio] 20.0 mg/mg 10-20 [facility] Basophil percentageOrdered B y: Safia Ruelas on 01-28-2025 Basophils/100 WBC (Bld) 0.6 % 0-[address] [facility] Carbon dioxide, total [Moles /volume] in Central venous bloodOrdered By: Safia Ruelas on 01-28-2025 CO2 [Moles/Vol] 24.7 mmol/L 21.0-32.0 [facility] Chloride assayOrdered By: Balbir randallskye Ruelas on 01-28-2025 Chloride [Moles/Vol] 103 mmol/L 98-108 [facility] Eosinophil percentageOrdered By: sheryr Ruelas on 01-28-2025 Eosinophils/100 WBC (Bld) 1.8 % 0-5 [facility] Erythrocyte distribution wid th ratioOrdered By: jean mariemount pleasantskye Ruelas on 01-28-2025 Erythrocyte distribution width (RBC) [Ratio] 14.6 % 11.6-14.6 [facility] Erythrocyte distribution wid th standard deviationOrdered By: jean mariemount pleasantskye Ruelas on 01-28-2025 Erythrocyte distribution width (RBC) [Ratio] 48.6 fl High 35.1-43.9 [facility] Glomerular filtration rate ( GFR) estimation/1.73 sq m using serum, plasma, or whole bOrdered By: Safia Ruelas on 01-28-2025 GFR/1.73 sq M.predicted among non-blacks MDRD (S/P/Bld) [Vol rate/Area] 88 mL/min/{1.73_m2} >60 [facility] Hematocrit Auto (Bld) [Volum e fraction]Ordered By: Safia Ruelas on 01-28-2025 Hematocrit (Bld) [Volume fraction] 38.1 % 37-47 [facility] Hemoglobin measurementOrdere d By: sherry Ruelas on 01-28-2025 Hemoglobin (Bld) [Mass/Vol] 12.3 g/dL 12.0-15.0 [facility] Immature granulocytes/100 WB C Auto (Bld)Ordered By: Safia Ruelas on 01-28-2025 Immature granulocytes/100 WBC (Bld) 0.400 % 0.0-0.9 [facility] MCV (mean corpuscular volume ) determinationOrdered By: Safia Ruelas on 01-28-2025 MCV (RBC) [Entitic vol] 90.7 fL 81-[address] [facility] Mean corpuscular hemoglobin (MCH) determinationOrdered By: Safia Ruelas on 01-28-2025 MCH (RBC) [Entitic mass] 29.3 pg 27.0-32.0 [facility] Monocyte percentageOrdered B y: Safia Ruelas on 01-28-2025 Monocytes/100 WBC (Bld) 8.2 % 0-[address] [facility] Neutrophil percentageOrdered By: Safia Ruelas on 01-28-2025 Neutrophils/100 WBC (Bld) 53.0 % 47-70 [facility] Platelet countOrdered By: Balbir Ruelas on 01-28-2025 Platelets (Bld) [#/Vol] 261 10*3/uL 150-450 [facility] Potassium measurement (mass/ volume)Ordered By: Safia Ruelas on 01-28-2025 Potassium (Unsp spec) [Mass/Vol] 3.4 mmol/L 3.3-5.1 [facility] RBC Auto (Bld) [#/Vol]Ordere d By: Safia Ruelas on 01-28-2025 RBC (Bld) [#/Vol] 4.20 10*6/uL 4.2-5.4 [facility] Serum creatinine measurement (mass/volume)Ordered By: Safia Ruelas on 01-28-2025 Creatinine [Mass/Vol] 0.66 mg/dL Low 0.70-1.20 [facility] Serum glucose measurement (m ass/volume)Ordered By: Safia Ruelas on 01-28-2025 Glucose [Mass/Vol] 130 mg/dL High 70-99 [facility] Serum or plasma calcium dayna urement (mass/volume)Ordered By: Safia Ruelas on 01-28-2025 Calcium [Mass/Vol] 9.0 mg/dL 7.6-11.0 [facility] Serum or plasma urea nitroge n measurement (mass/volume)Ordered By: Safia Ruelas on 01-28-2025 Urea nitrogen [Mass/Vol] 13 mg/dL 4-19 [facility] Sodium levelOrdered By: Leonides josé antonio Jessenia on 01-28-2025 Sodium [Moles/Vol] 140 mmol/L 133-145 [facility] White blood cell (WBC) count Ordered By: Safia Ruelas on 01-28-2025 WBC (Bld) [#/Vol] 8.4 10*3/uL 4.4-11.0 [facility] Absolute lymphocyte countOrd ered By: Safia Ruelas on 01-21-2025 Lymphocytes Auto (Unsp spec) [#/Vol] 3.26 10*3/uL 0.83-4.51 [facility] Anion gap in Serum or Plasma Ordered By: Safia Ruelas on 01-21-2025 Anion gap [Moles/Vol] 13 mmol/L 5-15 [facility] Automated lymphocyte count a s percentage of total leukocytesOrdered By: Safia Ruelas on 01-21-2025 Lymphocytes/100 WBC Auto (Unsp spec) 38.3 % 19-41 [facility] BUN/creatinine ratioOrdered By: Safia Ruelas on 01-21-2025 Urea nitrogen/Creatinine [Mass ratio] 20.0 mg/mg 10-20 [facility] Basophil percentageOrdered B y: Safia Ruelas on 01-21-2025 Basophils/100 WBC (Bld) 0.6 % 0-[address] [facility] Carbon dioxide, total [Moles /volume] in Central venous bloodOrdered By: Safia Ruelas on 01-21-2025 CO2 [Moles/Vol] 22.3 mmol/L 21.0-32.0 [facility] Chloride assayOrdered By: Balbir Ruelas on 01-21-2025 Chloride [Moles/Vol] 102 mmol/L 98-108 [facility] Eosinophil percentageOrdered By: Safia Ruelas on 01-21-2025 Eosinophils/100 WBC (Bld) 2.1 % 0-5 [facility] Erythrocyte distribution wid th ratioOrdered By: Safia Ruelas on 01-21-2025 Erythrocyte distribution width (RBC) [Ratio] 14.4 % 11.6-14.6 [facility] Erythrocyte distribution wid th standard deviationOrdered By: Safia Ruelas on 01-21-2025 Erythrocyte distribution width (RBC) [Ratio] 47.1 fl High 35.1-43.9 [facility] Glomerular filtration rate ( GFR) estimation/1.73 sq m using serum, plasma, or whole bOrdered By: Safia Ruelas on 01-21-2025 GFR/1.73 sq M.predicted among non-blacks MDRD (S/P/Bld) [Vol rate/Area] 86 mL/min/{1.73_m2} >60 [facility] Hematocrit Auto (Bld) [Volum e fraction]Ordered By: Safia Ruelas on 01-21-2025 Hematocrit (Bld) [Volume fraction] 37.8 % 37-47 [facility] Hemoglobin measurementOrdere d By: Safia Ruelas on 01-21-2025 Hemoglobin (Bld) [Mass/Vol] 12.6 g/dL 12.0-15.0 [facility] Immature granulocytes/100 WB C Auto (Bld)Ordered By: Safia Ruelas 01-21-2025 Immature granulocytes/100 WBC (Bld) 0.400 % 0.0-0.9 [facility] MCV (mean corpuscular volume ) determinationOrdered By: Safia Ruelas 01-21-2025 MCV (RBC) [Entitic vol] 89.6 fL 81-[address] [facility] Mean corpuscular hemoglobin (MCH) determinationOrdered By: Safia Ruelas 01-21-2025 MCH (RBC) [Entitic mass] 29.9 pg 27.0-32.0 [facility] Monocyte percentageOrdered B y: Safia Ruelas on 01-21-2025 Monocytes/100 WBC (Bld) 6.9 % 0-[address] [facility] Neutrophil percentageOrdered By: Safia Ruelas 01-21-2025 Neutrophils/100 WBC (Bld) 51.7 % 47-70 [facility] Platelet countOrdered By: Balbir Ruelas on 01-21-2025 Platelets (Bld) [#/Vol] 280 10*3/uL 150-450 [facility] Potassium measurement (mass/ volume)Ordered By: Safia Ruelas on 01-21-2025 Potassium (Unsp spec) [Mass/Vol] 3.6 mmol/L 3.3-5.1 [facility] RBC Auto (Bld) [#/Vol]Ordere d By: Safia Ruelas on 01-21-2025 RBC (Bld) [#/Vol] 4.22 10*6/uL 4.2-5.4 [facility] Serum creatinine measurement (mass/volume)Ordered By: Safia Ruelas on 01-21-2025 Creatinine [Mass/Vol] 0.71 mg/dL 0.70-1.20 [facility] Serum glucose measurement (m ass/volume)Ordered By: Safia Ruelas on 01-21-2025 Glucose [Mass/Vol] 126 mg/dL High 70-99 [facility] Serum or plasma calcium dayna urement (mass/volume)Ordered By: Safia Ruelas on 01-21-2025 Calcium [Mass/Vol] 9.0 mg/dL 7.6-11.0 [facility] Serum or plasma urea nitroge n measurement (mass/volume)Ordered By: Safia Ruelas on 01-21-2025 Urea nitrogen [Mass/Vol] 14 mg/dL 4-19 [facility] Sodium levelOrdered By: Leonides jiméneztadmelanie Ruelas on 01-21-2025 Sodium [Moles/Vol] 137 mmol/L 133-145 [facility] White blood cell (WBC) count Ordered By: Safia Ruelas on 01-21-2025 WBC (Bld) [#/Vol] 8.5 10*3/uL 4.4-11.0 [facility] Absolute lymphocyte countOrd ered By: Safia Ruelas on 01-14-2025 Lymphocytes Auto (Unsp spec) [#/Vol] 2.54 10*3/uL 0.83-4.51 [facility] Anion gap in Serum or Plasma Ordered By: Safia Ruelas on 01-14-2025 Anion gap [Moles/Vol] 13 mmol/L 5-15 [facility] Automated lymphocyte count a s percentage of total leukocytesOrdered By: Safia Ruelas on 01-14-2025 Lymphocytes/100 WBC Auto (Unsp spec) 30.6 % 19-41 [facility] BUN/creatinine ratioOrdered By: Safia Ruelas on 01-14-2025 Urea nitrogen/Creatinine [Mass ratio] 16.0 mg/mg 10-20 [facility] Basophil percentageOrdered B y: Safia Ruelas on 01-14-2025 Basophils/100 WBC (Bld) 0.6 % 0-1 [facility] Carbon dioxide, total [Moles /volume] in Central venous bloodOrdered By: Safia Ruelas on 01-14-2025 CO2 [Moles/Vol] 22.8 mmol/L 21.0-32.0 [facility] Chloride assayOrdered By: Balbir Ruelas on 01-14-2025 Chloride [Moles/Vol] 104 mmol/L 98-108 [facility] Eosinophil percentageOrdered By: Safia Ruelas on 01-14-2025 Eosinophils/100 WBC (Bld) 2.2 % 0-5 [facility] Erythrocyte distribution wid th ratioOrdered By: Safia Ruelas on 01-14-2025 Erythrocyte distribution width (RBC) [Ratio] 14.6 % 11.6-14.6 [facility] Erythrocyte distribution wid th standard deviationOrdered By: Safia Ruelas on 01-14-2025 Erythrocyte distribution width (RBC) [Ratio] 48.7 fl High 35.1-43.9 [facility] Glomerular filtration rate ( GFR) estimation/1.73 sq m using serum, plasma, or whole bOrdered By: Safia Ruelas on 01-14-2025 GFR/1.73 sq M.predicted among non-blacks MDRD (S/P/Bld) [Vol rate/Area] 84 mL/min/{1.73_m2} >60 [facility] Hematocrit Auto (Bld) [Volum e fraction]Ordered By: Safia Ruelas on 01-14-2025 Hematocrit (Bld) [Volume fraction] 37.6 % 37-47 [facility] Hemoglobin measurementOrdere d By: Balbirjean mariejosé antonio Cheobonimelaine on 01-14-2025 Hemoglobin (Bld) [Mass/Vol] 12.1 g/dL 12.0-15.0 [facility] Immature granulocytes/100 WB C Auto (Bld)Ordered By: Safia Ruelas on 01-14-2025 Immature granulocytes/100 WBC (Bld) 0.500 % 0.0-0.9 [facility] MCV (mean corpuscular volume ) determinationOrdered By: Safia Ruelas on 01-14-2025 MCV (RBC) [Entitic vol] 90.8 fL 81-[address] [facility] Mean corpuscular hemoglobin (MCH) determinationOrdered By: jean mariemount pleasantskye Ruelas on 01-14-2025 MCH (RBC) [Entitic mass] 29.2 pg 27.0-32.0 [facility] Monocyte percentageOrdered B y: Safia Ruelas on 01-14-2025 Monocytes/100 WBC (Bld) 7.8 % 0-[address] [facility] Neutrophil percentageOrdered By: jean mariemount pleasantskye Ruelas on 01-14-2025 Neutrophils/100 WBC (Bld) 58.3 % 47-70 [facility] Platelet countOrdered By: Balbir randallskye Ruelas on 01-14-2025 Platelets (Bld) [#/Vol] 284 10*3/uL 150-450 [facility] Potassium measurement (mass/ volume)Ordered By: Safia Ruelas on 01-14-2025 Potassium (Unsp spec) [Mass/Vol] 3.5 mmol/L 3.3-5.1 [facility] RBC Auto (Bld) [#/Vol]Ordere d By: Safia Ruelas on 01-14-2025 RBC (Bld) [#/Vol] 4.14 10*6/uL Low 4.2-5.4 [facility] Serum creatinine measurement (mass/volume)Ordered By: Safia Ruelas on 01-14-2025 Creatinine [Mass/Vol] 0.73 mg/dL 0.70-1.20 [facility] Serum glucose measurement (m ass/volume)Ordered By: Safia Ruelas on 01-14-2025 Glucose [Mass/Vol] 137 mg/dL High 70-99 [facility] Serum or plasma calcium dayna urement (mass/volume)Ordered By: Safia Ruelas on 01-14-2025 Calcium [Mass/Vol] 8.8 mg/dL 7.6-11.0 [facility] Serum or plasma urea nitroge n measurement (mass/volume)Ordered By: Safia Ruelas on 01-14-2025 Urea nitrogen [Mass/Vol] 12 mg/dL 4-19 [facility] Sodium levelOrdered By: Leonides jiménezradha Jessenia on 01-14-2025 Sodium [Moles/Vol] 139 mmol/L 133-145 [facility] TSH DL <= 0.005 mIU/L QnOrde red By: Safia Ruelas on 01-14-2025 TSH Qn 1.730 uIU/mL 0.300-4.200 [facility] White blood cell (WBC) count Ordered By: Safia Ruelas on 01-14-2025 WBC (Bld) [#/Vol] 8.3 10*3/uL 4.4-11.0 [facility] Absolute lymphocyte countOrd ered By: Safia Ruelas on 01-07-2025 Lymphocytes Auto (Unsp spec) [#/Vol] 2.90 10*3/uL 0.83-4.51 [facility] Anion gap in Serum or Plasma Ordered By: Safia Ruelas on 01-07-2025 Anion gap [Moles/Vol] 12 mmol/L 5-15 [facility] Automated lymphocyte count a s percentage of total leukocytesOrdered By: Safia Ruelas on 01-07-2025 Lymphocytes/100 WBC Auto (Unsp spec) 36.3 % 19-41 [facility] BUN/creatinine ratioOrdered By: Safia Ruelas on 01-07-2025 Urea nitrogen/Creatinine [Mass ratio] 15.4 mg/mg 10-20 [facility] Basophil percentageOrdered B y: Safia Ruelas on 01-07-2025 Basophils/100 WBC (Bld) 0.6 % 0-[address] [facility] Carbon dioxide, total [Moles /volume] in Central venous bloodOrdered By: Safia Ruelas on 01-07-2025 CO2 [Moles/Vol] 23.2 mmol/L 21.0-32.0 [facility] Chloride assayOrdered By: Balbir jean mariejosé antonio Ruelas on 01-07-2025 Chloride [Moles/Vol] 104 mmol/L 98-108 [facility] Eosinophil percentageOrdered By: jean mariemount pleasantskye Griderbonimelanie on 01-07-2025 Eosinophils/100 WBC (Bld) 2.3 % 0-5 [facility] Erythrocyte distribution wid th ratioOrdered By: jean mariemount pleasantskye Ruelas on 01-07-2025 Erythrocyte distribution width (RBC) [Ratio] 14.6 % 11.6-14.6 [facility] Erythrocyte distribution wid th standard deviationOrdered By: Leonidesmount pleasantskye Ruelas on 01-07-2025 Erythrocyte distribution width (RBC) [Ratio] 48.5 fl High 35.1-43.9 [facility] Glomerular filtration rate ( GFR) estimation/1.73 sq m using serum, plasma, or whole bOrdered By: Safia Ruelas on 01-07-2025 GFR/1.73 sq M.predicted among non-blacks MDRD (S/P/Bld) [Vol rate/Area] 86 mL/min/{1.73_m2} >60 [facility] Hematocrit Auto (Bld) [Volum e fraction]Ordered By: Safia Ruelas on 01-07-2025 Hematocrit (Bld) [Volume fraction] 36.6 % Low 37-47 [facility] Hemoglobin measurementOrdere d By: Safia Ruelas on 01-07-2025 Hemoglobin (Bld) [Mass/Vol] 11.9 g/dL Low 12.0-15.0 [facility] Immature granulocytes/100 WB C Auto (Bld)Ordered By: Safia Ruelas on 01-07-2025 Immature granulocytes/100 WBC (Bld) 0.300 % 0.0-0.9 [facility] MCV (mean corpuscular volume ) determinationOrdered By: Balbirjean mariedesireeskye Griderbonimelanie on 01-07-2025 MCV (RBC) [Entitic vol] 90.6 fL 81-[address] [facility] Mean corpuscular hemoglobin (MCH) determinationOrdered By: Safia Cheoquyen on 01-07-2025 MCH (RBC) [Entitic mass] 29.5 pg 27.0-32.0 [facility] Monocyte percentageOrdered B y: [place] Griderbonimelanie on 01-07-2025 Monocytes/100 WBC (Bld) 7.9 % 0-[address] [facility] Neutrophil percentageOrdered By: Safia Cheoquyen on 01-07-2025 Neutrophils/100 WBC (Bld) 52.6 % 47-70 [facility] Platelet countOrdered By: Balbir sherry Cheoquyen on 01-07-2025 Platelets (Bld) [#/Vol] 263 10*3/uL 150-450 [facility] Potassium measurement (mass/ volume)Ordered By: Safia Griderbonimelanie on 01-07-2025 Potassium (Unsp spec) [Mass/Vol] 3.5 mmol/L 3.3-5.1 [facility] RBC Auto (Bld) [#/Vol]Ordere d By: Balbirjean mariejosé antonio Cheoquyen on 01-07-2025 RBC (Bld) [#/Vol] 4.04 10*6/uL Low 4.2-5.4 [facility] Serum creatinine measurement (mass/volume)Ordered By: Safia Ruelas on 01-07-2025 Creatinine [Mass/Vol] 0.71 mg/dL 0.70-1.20 [facility] Serum glucose measurement (m ass/volume)Ordered By: Safia Ruelas on 01-07-2025 Glucose [Mass/Vol] 139 mg/dL High 70-99 [facility] Serum or plasma calcium dayna urement (mass/volume)Ordered By: Safia Ruelas on 01-07-2025 Calcium [Mass/Vol] 8.5 mg/dL 7.6-11.0 [facility] Serum or plasma urea nitroge n measurement (mass/volume)Ordered By: Balbirjean mariedesireeskye Griderbonimelanie on 01-07-2025 Urea nitrogen [Mass/Vol] 11 mg/dL 4- [facility] Sodium levelOrdered By: Leonides Ruelas on 01-07-2025 Sodium [Moles/Vol] 139 mmol/L 133-145 [facility] White blood cell (WBC) count Ordered By: Balbirjean mariejosé antonio Cheoquyen on 01-07-2025 WBC (Bld) [#/Vol] 8.0 10*3/uL 4.4-11.0 [facility] Absolute lymphocyte countOrd ered By: Balbirjean mariejosé antonio Cheoquyen on 12-31-2024 Lymphocytes Auto (Unsp spec) [#/Vol] 2.27 10*3/uL 0.83-4.51 [facility] Anion gap in Serum or Plasma Ordered By: Leonidesjosé antonio Cheobonimelanie on 12-31-2024 Anion gap [Moles/Vol] 14 mmol/L 5-15 [facility] Automated lymphocyte count a s percentage of total leukocytesOrdered By: Safia Ruelas on 12-31-2024 Lymphocytes/100 WBC Auto (Unsp spec) 32.9 % 19-41 [facility] BUN/creatinine ratioOrdered By: Leonidesdesireeskye Griderbonimelanie on 12-31-2024 Urea nitrogen/Creatinine [Mass ratio] 15.0 mg/mg 10-20 [facility] Basophil percentageOrdered B y: Safia Cheobonimelanie on 12-31-2024 Basophils/100 WBC (Bld) 0.6 % 0-[address] [facility] Carbon dioxide, total [Moles /volume] in Central venous bloodOrdered By: Balbirjean mariejosé antonio Cheobonimelanie on 12-31-2024 CO2 [Moles/Vol] 22.1 mmol/L 21.0-32.0 [facility] Chloride assayOrdered By: Balbir jean mariejosé antonio Griderbonimelanie on 12-31-2024 Chloride [Moles/Vol] 103 mmol/L 98-108 [facility] Eosinophil percentageOrdered By: Leonidesdesireeskye Griderbonimelanie on 12-31-2024 Eosinophils/100 WBC (Bld) 3.2 % 0-5 [facility] Erythrocyte distribution wid th ratioOrdered By: Safia Ruelas on 12-31-2024 Erythrocyte distribution width (RBC) [Ratio] 14.6 % 11.6-14.6 [facility] Erythrocyte distribution wid th standard deviationOrdered By: Safia Ruelas on 12-31-2024 Erythrocyte distribution width (RBC) [Ratio] 48.9 fl High 35.1-43.9 [facility] Glomerular filtration rate ( GFR) estimation/1.73 sq m using serum, plasma, or whole bOrdered By: Safia Ruelas on 12-31-2024 GFR/1.73 sq M.predicted among non-blacks MDRD (S/P/Bld) [Vol rate/Area] 88 mL/min/{1.73_m2} >60 [facility] Hematocrit Auto (Bld) [Volum e fraction]Ordered By: Leonidesmount pleasantskye Ruelas on 12-31-2024 Hematocrit (Bld) [Volume fraction] 36.8 % Low 37-47 [facility] Hemoglobin A1c percentageOrd ered By: Safia Ruelas on 12-31-2024 HbA1c (Bld) [Mass fraction] 6.5 % High <5.7 [facility] Hemoglobin measurementOrdere d By: Safia Ruelas on 12-31-2024 Hemoglobin (Bld) [Mass/Vol] 11.8 g/dL Low 12.0-15.0 [facility] Immature granulocytes/100 WB C Auto (Bld)Ordered By: Safia Ruelas on 12-31-2024 Immature granulocytes/100 WBC (Bld) 0.300 % 0.0-0.9 [facility] MCV (mean corpuscular volume ) determinationOrdered By: Safia Ruelas on 12-31-2024 MCV (RBC) [Entitic vol] 91.3 fL 81-[address] [facility] Mean corpuscular hemoglobin (MCH) determinationOrdered By: Safia Ruelas on 12-31-2024 MCH (RBC) [Entitic mass] 29.3 pg 27.0-32.0 [facility] Monocyte percentageOrdered B y: Safia Ruelas on 12-31-2024 Monocytes/100 WBC (Bld) 9.4 % 0-10 [facility] Neutrophil percentageOrdered By: Safia Ruelas on 12-31-2024 Neutrophils/100 WBC (Bld) 53.6 % 47-70 [facility] Platelet countOrdered By: Balbir Ruelas on 12-31-2024 Platelets (Bld) [#/Vol] 232 10*3/uL 150-450 [facility] Potassium measurement (mass/ volume)Ordered By: Safia Ruelas on 12-31-2024 Potassium (Unsp spec) [Mass/Vol] 3.5 mmol/L 3.3-5.1 [facility] RBC Auto (Bld) [#/Vol]Ordere d By: Safia Ruelas on 12-31-2024 RBC (Bld) [#/Vol] 4.03 10*6/uL Low 4.2-5.4 [facility] Serum creatinine measurement (mass/volume)Ordered By: Safia Ruelas on 12-31-2024 Creatinine [Mass/Vol] 0.70 mg/dL 0.70-1.20 [facility] Serum glucose measurement (m ass/volume)Ordered By: Safia Ruelas on 12-31-2024 Glucose [Mass/Vol] 142 mg/dL High 70-99 [facility] Serum or plasma calcium dayna urement (mass/volume)Ordered By: Safia Ruelas on 12-31-2024 Calcium [Mass/Vol] 8.4 mg/dL 7.6-11.0 [facility] Serum or plasma urea nitroge n measurement (mass/volume)Ordered By: Safia Ruelas on 12-31-2024 Urea nitrogen [Mass/Vol] 10 mg/dL 4-19 [facility] Sodium levelOrdered By: Leonides Ruelas on 12-31-2024 Sodium [Moles/Vol] 139 mmol/L 133-145 [facility] White blood cell (WBC) count Ordered By: Safia Reulas on 12-31-2024 WBC (Bld) [#/Vol] 6.9 10*3/uL 4.4-11.0 [facility] Absolute lymphocyte countOrd ered By: Safia Ruelas on 12-24-2024 Lymphocytes Auto (Unsp spec) [#/Vol] 2.54 10*3/uL 0.83-4.51 [facility] Anion gap in Serum or Plasma Ordered By: Safia Ruelas on 12-24-2024 Anion gap [Moles/Vol] 14 mmol/L 5-15 [facility] Automated lymphocyte count a s percentage of total leukocytesOrdered By: Safia Griderbonimelanie on 12-24-2024 Lymphocytes/100 WBC Auto (Unsp spec) 28.0 % 19-41 [facility] BUN/creatinine ratioOrdered By: Safia Griderbonimelanie on 12-24-2024 Urea nitrogen/Creatinine [Mass ratio] 18.4 mg/mg 10-20 [facility] Basophil percentageOrdered B y: Safia Ruelas on 12-24-2024 Basophils/100 WBC (Bld) 0.8 % 0-1 [facility] Carbon dioxide, total [Moles /volume] in Central venous bloodOrdered By: Safia Ruelas on 12-24-2024 CO2 [Moles/Vol] 22.1 mmol/L 21.0-32.0 [facility] Chloride assayOrdered By: Balbir jean mariejosé antonio Ruelas on 12-24-2024 Chloride [Moles/Vol] 101 mmol/L 98-108 [facility] Eosinophil percentageOrdered By: Safia Ruelas on 12-24-2024 Eosinophils/100 WBC (Bld) 2.6 % 0-5 [facility] Erythrocyte distribution wid th ratioOrdered By: Safia Ruelas on 12-24-2024 Erythrocyte distribution width (RBC) [Ratio] 14.4 % 11.6-14.6 [facility] Erythrocyte distribution wid th standard deviationOrdered By: Safia Griderbonimelanie on 12-24-2024 Erythrocyte distribution width (RBC) [Ratio] 48.8 fl High 35.1-43.9 [facility] Glomerular filtration rate ( GFR) estimation/1.73 sq m using serum, plasma, or whole bOrdered By: Safia Ruelas on 12-24-2024 GFR/1.73 sq M.predicted among non-blacks MDRD (S/P/Bld) [Vol rate/Area] 83 mL/min/{1.73_m2} >60 [facility] Hematocrit Auto (Bld) [Volum e fraction]Ordered By: Safia Ruelas on 12-24-2024 Hematocrit (Bld) [Volume fraction] 37.9 % 37-47 [facility] Hemoglobin measurementOrdere d By: Leonidesjosé antonio Cheobonimelanie on 12-24-2024 Hemoglobin (Bld) [Mass/Vol] 12.2 g/dL 12.0-15.0 [facility] Immature granulocytes/100 WB C Auto (Bld)Ordered By: Safia Griderbonimelanie on 12-24-2024 Immature granulocytes/100 WBC (Bld) 0.400 % 0.0-0.9 [facility] MCV (mean corpuscular volume ) determinationOrdered By: Safia Griderbonimelanie on 12-24-2024 MCV (RBC) [Entitic vol] 92.2 fL 81-[address] [facility] Mean corpuscular hemoglobin (MCH) determinationOrdered By: Safia Griderbonimelanie on 12-24-2024 MCH (RBC) [Entitic mass] 29.7 pg 27.0-32.0 [facility] Monocyte percentageOrdered B y: Balbirjean mariedesireeskye Griderbonimelanie on 12-24-2024 Monocytes/100 WBC (Bld) 8.7 % 0-[address] [facility] Neutrophil percentageOrdered By: Leonidesmount pleasantskye Griderbonimelanie on 12-24-2024 Neutrophils/100 WBC (Bld) 59.5 % 47-70 [facility] Platelet countOrdered By: Balbir sherry Cheobonimelanie on 12-24-2024 Platelets (Bld) [#/Vol] 256 10*3/uL 150-450 [facility] Potassium measurement (mass/ volume)Ordered By: Balbirjean mariedesireeskye Griderbonimelanie on 12-24-2024 Potassium (Unsp spec) [Mass/Vol] 3.4 mmol/L 3.3-5.1 [facility] RBC Auto (Bld) [#/Vol]Ordere d By: Leonidesjosé antonio Cheobonimelanie on 12-24-2024 RBC (Bld) [#/Vol] 4.11 10*6/uL Low 4.2-5.4 [facility] Serum creatinine measurement (mass/volume)Ordered By: Safia Ruelas on 12-24-2024 Creatinine [Mass/Vol] 0.73 mg/dL 0.70-1.20 [facility] Serum glucose measurement (m ass/volume)Ordered By: Safia Griderbonimelanie on 12-24-2024 Glucose [Mass/Vol] 142 mg/dL High 70-99 [facility] Serum or plasma calcium dayna urement (mass/volume)Ordered By: Safia Ruelas on 12-24-2024 Calcium [Mass/Vol] 9.1 mg/dL 7.6-11.0 [facility] Serum or plasma urea nitroge n measurement (mass/volume)Ordered By: Safia Ruelas on 12-24-2024 Urea nitrogen [Mass/Vol] 13 mg/dL 4-19 [facility] Sodium levelOrdered By: Leonides josé antonio Jessenia on 12-24-2024 Sodium [Moles/Vol] 137 mmol/L 133-145 [facility] White blood cell (WBC) count Ordered By: Safia Griderbonimelanie on 12-24-2024 WBC (Bld) [#/Vol] 9.1 10*3/uL 4.4-11.0 [facility] Absolute lymphocyte countOrd ered By: Safia Ruelas on 12-17-2024 Lymphocytes Auto (Unsp spec) [#/Vol] 2.94 10*3/uL 0.83-4.51 [facility] Anion gap in Serum or Plasma Ordered By: Safia Ruelas on 12-17-2024 Anion gap [Moles/Vol] 15 mmol/L 5-15 [facility] Automated lymphocyte count a s percentage of total leukocytesOrdered By: Safia Ruelas on 12-17-2024 Lymphocytes/100 WBC Auto (Unsp spec) 30.5 % 19-41 [facility] BUN/creatinine ratioOrdered By: Safia Ruelas on 12-17-2024 Urea nitrogen/Creatinine [Mass ratio] 23.4 mg/mg High 10-20 [facility] Basophil percentageOrdered B y: Safia Ruelas on 12-17-2024 Basophils/100 WBC (Bld) 0.7 % 0-[address] [facility] Carbon dioxide, total [Moles /volume] in Central venous bloodOrdered By: Safia Ruelas on 12-17-2024 CO2 [Moles/Vol] 22.1 mmol/L 21.0-32.0 [facility] Chloride assayOrdered By: Balbir Ruelas on 12-17-2024 Chloride [Moles/Vol] 102 mmol/L 98-108 [facility] Eosinophil percentageOrdered By: jean mariemount pleasantskye Ruelas on 12-17-2024 Eosinophils/100 WBC (Bld) 2.3 % 0-5 [facility] Erythrocyte distribution wid th ratioOrdered By: jean mariemount pleasantskye Ruelas on 12-17-2024 Erythrocyte distribution width (RBC) [Ratio] 14.1 % 11.6-14.6 [facility] Erythrocyte distribution wid th standard deviationOrdered By: Leonidesmount pleasantskye Ruelas on 12-17-2024 Erythrocyte distribution width (RBC) [Ratio] 47.3 fl High 35.1-43.9 [facility] Glomerular filtration rate ( GFR) estimation/1.73 sq m using serum, plasma, or whole bOrdered By: Safia Ruelas on 12-17-2024 GFR/1.73 sq M.predicted among non-blacks MDRD (S/P/Bld) [Vol rate/Area] 77 mL/min/{1.73_m2} >60 [facility] Hematocrit Auto (Bld) [Volum e fraction]Ordered By: Safia Ruelas on 12-17-2024 Hematocrit (Bld) [Volume fraction] 40.2 % 37-47 [facility] Hemoglobin measurementOrdere d By: Safia Ruelas on 12-17-2024 Hemoglobin (Bld) [Mass/Vol] 12.7 g/dL 12.0-15.0 [facility] Immature granulocytes/100 WB C Auto (Bld)Ordered By: Safia Ruelas on 12-17-2024 Immature granulocytes/100 WBC (Bld) 0.400 % 0.0-0.9 [facility] MCV (mean corpuscular volume ) determinationOrdered By: Safia Ruelas on 12-17-2024 MCV (RBC) [Entitic vol] 92.2 fL 81-[address] [facility] Mean corpuscular hemoglobin (MCH) determinationOrdered By: Safia Ruelas on 12-17-2024 MCH (RBC) [Entitic mass] 29.1 pg 27.0-32.0 [facility] Monocyte percentageOrdered B y: Safia Ruelas on 12-17-2024 Monocytes/100 WBC (Bld) 8.6 % 0-[address] [facility] Neutrophil percentageOrdered By: Safia Ruelas on 12-17-2024 Neutrophils/100 WBC (Bld) 57.5 % 47-70 [facility] Platelet countOrdered By: Balbir Ruelas on 12-17-2024 Platelets (Bld) [#/Vol] 287 10*3/uL 150-450 [facility] Potassium measurement (mass/ volume)Ordered By: Safia Ruelas on 12-17-2024 Potassium (Unsp spec) [Mass/Vol] 3.5 mmol/L 3.3-5.1 [facility] RBC Auto (Bld) [#/Vol]Ordere d By: Safia Ruelas on 12-17-2024 RBC (Bld) [#/Vol] 4.36 10*6/uL 4.2-5.4 [facility] Serum creatinine measurement (mass/volume)Ordered By: Safia Ruelas on 12-17-2024 Creatinine [Mass/Vol] 0.78 mg/dL 0.70-1.20 [facility] Serum glucose measurement (m ass/volume)Ordered By: Safia Ruelas on 12-17-2024 Glucose [Mass/Vol] 125 mg/dL High 70-99 [facility] Serum or plasma calcium dayna urement (mass/volume)Ordered By: Safia Ruelas on 12-17-2024 Calcium [Mass/Vol] 9.2 mg/dL 7.6-11.0 [facility] Serum or plasma urea nitroge n measurement (mass/volume)Ordered By: Safia Ruelas on 12-17-2024 Urea nitrogen [Mass/Vol] 18 mg/dL 4-19 [facility] Sodium levelOrdered By: Leonides josé antonio Jessenia on 12-17-2024 Sodium [Moles/Vol] 139 mmol/L 133-145 [facility] White blood cell (WBC) count Ordered By: Safia Ruelas on 12-17-2024 WBC (Bld) [#/Vol] 9.6 10*3/uL 4.4-11.0 [facility] Absolute lymphocyte countOrd ered By: Safia Ruelas on 12-10-2024 Lymphocytes Auto (Unsp spec) [#/Vol] 2.59 10*3/uL 0.83-4.51 [facility] Anion gap in Serum or Plasma Ordered By: Safia Ruelas on 12-10-2024 Anion gap [Moles/Vol] 15 mmol/L 5-15 [facility] Automated lymphocyte count a s percentage of total leukocytesOrdered By: Safia Ruelas on 12-10-2024 Lymphocytes/100 WBC Auto (Unsp spec) 30.2 % 19-41 [facility] BUN/creatinine ratioOrdered By: Safia Ruelas on 12-10-2024 Urea nitrogen/Creatinine [Mass ratio] 25.6 mg/mg High 10-20 [facility] Basophil percentageOrdered B y: Safia Ruelas on 12-10-2024 Basophils/100 WBC (Bld) 0.9 % 0-[address] [facility] Carbon dioxide, total [Moles /volume] in Central venous bloodOrdered By: Safia Ruelas on 12-10-2024 CO2 [Moles/Vol] 21.7 mmol/L 21.0-32.0 [facility] Chloride assayOrdered By: Balbir Ruelas on 12-10-2024 Chloride [Moles/Vol] 101 mmol/L 98-108 [facility] Eosinophil percentageOrdered By: Safia Ruelas on 12-10-2024 Eosinophils/100 WBC (Bld) 1.9 % 0-5 [facility] Erythrocyte distribution wid th ratioOrdered By: Safia Ruelas on 12-10-2024 Erythrocyte distribution width (RBC) [Ratio] 13.7 % 11.6-14.6 [facility] Erythrocyte distribution wid th standard deviationOrdered By: Safia Ruelas on 12-10-2024 Erythrocyte distribution width (RBC) [Ratio] 46.8 fl High 35.1-43.9 [facility] Glomerular filtration rate ( GFR) estimation/1.73 sq m using serum, plasma, or whole bOrdered By: Safia Ruelas on 12-10-2024 GFR/1.73 sq M.predicted among non-blacks MDRD (S/P/Bld) [Vol rate/Area] 72 mL/min/{1.73_m2} >60 [facility] Hematocrit Auto (Bld) [Volum e fraction]Ordered By: Leonidesmount pleasantskye Ruelas on 12-10-2024 Hematocrit (Bld) [Volume fraction] 38.8 % 37-47 [facility] Hemoglobin measurementOrdere d By: Safia Ruelas on 12-10-2024 Hemoglobin (Bld) [Mass/Vol] 12.3 g/dL 12.0-15.0 [facility] Immature granulocytes/100 WB C Auto (Bld)Ordered By: Safia Ruelas on 12-10-2024 Immature granulocytes/100 WBC (Bld) 0.500 % 0.0-0.9 [facility] MCV (mean corpuscular volume ) determinationOrdered By: Safia Ruelas on 12-10-2024 MCV (RBC) [Entitic vol] 93.3 fL 81-[address] [facility] Mean corpuscular hemoglobin (MCH) determinationOrdered By: jean amriemount pleasantskye Ruelas on 12-10-2024 MCH (RBC) [Entitic mass] 29.6 pg 27.0-32.0 [facility] Monocyte percentageOrdered B y: Safia Ruelas on 12-10-2024 Monocytes/100 WBC (Bld) 8.2 % 0-[address] [facility] Neutrophil percentageOrdered By: jean mariemount pleasantskye Ruelas on 12-10-2024 Neutrophils/100 WBC (Bld) 58.3 % 47-70 [facility] Platelet countOrdered By: Balbir Ruelas on 12-10-2024 Platelets (Bld) [#/Vol] 247 10*3/uL 150-450 [facility] Potassium measurement (mass/ volume)Ordered By: Safia Ruelas on 12-10-2024 Potassium (Unsp spec) [Mass/Vol] 3.8 mmol/L 3.3-5.1 [facility] RBC Auto (Bld) [#/Vol]Ordere d By: Safia Ruelas on 12-10-2024 RBC (Bld) [#/Vol] 4.16 10*6/uL Low 4.2-5.4 [facility] Serum creatinine measurement (mass/volume)Ordered By: Safia Ruelas on 12-10-2024 Creatinine [Mass/Vol] 0.82 mg/dL 0.70-1.20 [facility] Serum glucose measurement (m ass/volume)Ordered By: Safia Cheoquyen on 12-10-2024 Glucose [Mass/Vol] 149 mg/dL High 70-99 [facility] Serum or plasma calcium dayna urement (mass/volume)Ordered By: Safia Ruelas on 12-10-2024 Calcium [Mass/Vol] 9.1 mg/dL 7.6-11.0 [facility] Serum or plasma urea nitroge n measurement (mass/volume)Ordered By: Safia Ruelas on 12-10-2024 Urea nitrogen [Mass/Vol] 21 mg/dL High 4-19 [facility] Sodium levelOrdered By: Leonides Ruelas on 12-10-2024 Sodium [Moles/Vol] 137 mmol/L 133-145 [facility] White blood cell (WBC) count Ordered By: Safia Cheoquyen on 12-10-2024 WBC (Bld) [#/Vol] 8.6 10*3/uL 4.4-11.0 [facility] Absolute lymphocyte countOrd ered By: Safia Cheoquyen on 12-03-2024 Lymphocytes Auto (Unsp spec) [#/Vol] 2.81 10*3/uL 0.83-4.51 [facility] Anion gap in Serum or Plasma Ordered By: Safia Ruelas on 12-03-2024 Anion gap [Moles/Vol] 14 mmol/L 5-15 [facility] Automated lymphocyte count a s percentage of total leukocytesOrdered By: Safia Ruelas on 12-03-2024 Lymphocytes/100 WBC Auto (Unsp spec) 28.3 % 19-41 [facility] BUN/creatinine ratioOrdered By: Safia Ruelas on 12-03-2024 Urea nitrogen/Creatinine [Mass ratio] 28.4 mg/mg High 10-20 [facility] Basophil percentageOrdered B y: Safia Ruelas on 12-03-2024 Basophils/100 WBC (Bld) 0.6 % 0-[address] [facility] Carbon dioxide, total [Moles /volume] in Central venous bloodOrdered By: Leonidesmount pleasantskye Ruelas on 12-03-2024 CO2 [Moles/Vol] 23.3 mmol/L 21.0-32.0 [facility] Chloride assayOrdered By: Balbir Ruelas on 12-03-2024 Chloride [Moles/Vol] 102 mmol/L 98-108 [facility] Eosinophil percentageOrdered By: Safia Ruelas on 12-03-2024 Eosinophils/100 WBC (Bld) 1.5 % 0-5 [facility] Erythrocyte distribution wid th ratioOrdered By: Safia Ruelas on 12-03-2024 Erythrocyte distribution width (RBC) [Ratio] 14.1 % 11.6-14.6 [facility] Erythrocyte distribution wid th standard deviationOrdered By: Safia Ruelas on 12-03-2024 Erythrocyte distribution width (RBC) [Ratio] 47.9 fl High 35.1-43.9 [facility] Glomerular filtration rate ( GFR) estimation/1.73 sq m using serum, plasma, or whole bOrdered By: Safia Ruelas on 12-03-2024 GFR/1.73 sq M.predicted among non-blacks MDRD (S/P/Bld) [Vol rate/Area] 65 mL/min/{1.73_m2} >60 [facility] Hematocrit Auto (Bld) [Volum e fraction]Ordered By: Safia Griderbonimelanie on 12-03-2024 Hematocrit (Bld) [Volume fraction] 40.0 % 37-47 [facility] Hemoglobin measurementOrdere d By: Safia Ruelas on 12-03-2024 Hemoglobin (Bld) [Mass/Vol] 12.9 g/dL 12.0-15.0 [facility] Immature granulocytes/100 WB C Auto (Bld)Ordered By: Balbirjean mariejosé antonio Cheobonimelanie on 12-03-2024 Immature granulocytes/100 WBC (Bld) 0.300 % 0.0-0.9 [facility] MCV (mean corpuscular volume ) determinationOrdered By: Balbirsherry Griderbonimelanie on 12-03-2024 MCV (RBC) [Entitic vol] 91.3 fL 81-[address] [facility] Mean corpuscular hemoglobin (MCH) determinationOrdered By: Balbirsherry Griderbonimelanie on 12-03-2024 MCH (RBC) [Entitic mass] 29.5 pg 27.0-32.0 [facility] Monocyte percentageOrdered B y: Safia Cheobonimelanie on 12-03-2024 Monocytes/100 WBC (Bld) 9.6 % 0-[address] [facility] Neutrophil percentageOrdered By: Safia Ruelas on 12-03-2024 Neutrophils/100 WBC (Bld) 59.7 % 47-70 [facility] Platelet countOrdered By: Balbir powell Cheobonimelanie on 12-03-2024 Platelets (Bld) [#/Vol] 280 10*3/uL 150-450 [facility] Potassium measurement (mass/ volume)Ordered By: Balbirjean amriedesireeskye Griderbonimelanie on 12-03-2024 Potassium (Unsp spec) [Mass/Vol] 4.0 mmol/L 3.3-5.1 [facility] RBC Auto (Bld) [#/Vol]Ordere d By: Safia Cheobonimelanie on 12-03-2024 RBC (Bld) [#/Vol] 4.38 10*6/uL 4.2-5.4 [facility] Serum creatinine measurement (mass/volume)Ordered By: Safia Ruelas on 12-03-2024 Creatinine [Mass/Vol] 0.89 mg/dL 0.70-1.20 [facility] Serum glucose measurement (m ass/volume)Ordered By: Safia Ruelas on 12-03-2024 Glucose [Mass/Vol] 77 mg/dL 70-99 [facility] Serum or plasma calcium dayna urement (mass/volume)Ordered By: Safia Griderbonimelanie on 12-03-2024 Calcium [Mass/Vol] 9.6 mg/dL 7.6-11.0 [facility] Serum or plasma urea nitroge n measurement (mass/volume)Ordered By: Safia Ruelas on 12-03-2024 Urea nitrogen [Mass/Vol] 25 mg/dL High 4-19 [facility] Sodium levelOrdered By: Leonides josé antonio Jessenia on 12-03-2024 Sodium [Moles/Vol] 139 mmol/L 133-145 [facility] TSH DL <= 0.005 mIU/L QnOrde red By: Leonidesdesireeskye Griderbonimelanie on 12-03-2024 TSH Qn 3.500 uIU/mL 0.300-4.200 [facility] White blood cell (WBC) count Ordered By: Safia Ruelas on 12-03-2024 WBC (Bld) [#/Vol] 9.9 10*3/uL 4.4-11.0 [facility] Absolute lymphocyte countOrd ered By: Safia Griderbonimelanie on 11-26-2024 Lymphocytes Auto (Unsp spec) [#/Vol] 2.99 10*3/uL 0.83-4.51 [facility] Absolute neutrophil countOrd ered By: Bandarskye Griderbonimelanie on 11-26-2024 Neutrophils (Bld) [#/Vol] 4.2 10*3/uL 2.0-7.7 [facility] Anion gap in Serum or Plasma Ordered By: Safia Griderbonimelanie on 11-26-2024 Anion gap [Moles/Vol] 13 mmol/L - [facility] Automated lymphocyte count a s percentage of total leukocytesOrdered By: Safia Ruelas on 11-26-2024 Lymphocytes/100 WBC Auto (Unsp spec) 37.1 % 19-41 [facility] BUN/creatinine ratioOrdered By: Safia Rueals on 11-26-2024 Urea nitrogen/Creatinine [Mass ratio] 24.3 mg/mg High 10-20 [facility] Basophil percentageOrdered B y: Safia Ruelas on 11-26-2024 Basophils/100 WBC (Bld) 0.7 % 0-[address] [facility] Carbon dioxide, total [Moles /volume] in Central venous bloodOrdered By: Safia Ruelas on 11-26-2024 CO2 [Moles/Vol] 27.1 mmol/L 21.0-32.0 [facility] Chloride assayOrdered By: Balbir Ruelas on 11-26-2024 Chloride [Moles/Vol] 101 mmol/L 98-108 [facility] Eosinophil percentageOrdered By: sherry Ruelas on 11-26-2024 Eosinophils/100 WBC (Bld) 1.9 % 0-5 [facility] Erythrocyte distribution wid th ratioOrdered By: Safia Ruelas on 11-26-2024 Erythrocyte distribution width (RBC) [Ratio] 14.2 % 11.6-14.6 [facility] Erythrocyte distribution wid th standard deviationOrdered By: Safia Ruelas on 11-26-2024 Erythrocyte distribution width (RBC) [Ratio] 48.0 fl High 35.1-43.9 [facility] Glomerular filtration rate ( GFR) estimation/1.73 sq m using serum, plasma, or whole bOrdered By: Safia Ruelas on 11-26-2024 GFR/1.73 sq M.predicted among non-blacks MDRD (S/P/Bld) [Vol rate/Area] 63 mL/min/{1.73_m2} >60 [facility] Comment on above: mL/min/1.73m2 CKD-EP I Creatinine Equation (2020) Hematocrit Auto (Bld) [Volum e fraction]Ordered By: Safia Ruelas on 11-26-2024 Hematocrit (Bld) [Volume fraction] 42.7 % 37-47 [facility] Hemoglobin measurementOrdere d By: Safia Ruelas on 11-26-2024 Hemoglobin (Bld) [Mass/Vol] 13.6 g/dL 12.0-15.0 [facility] Immature granulocytes/100 WB C Auto (Bld)Ordered By: Sfaia Ruelas on 11-26-2024 Immature granulocytes/100 WBC (Bld) 0.500 % 0.0-0.9 [facility] Comment on above: IG% - Immature Granu locytes (promyelocytes, myelocytes and metamyelocytes) > 1% indicates that a LEFT SHIFT is Present. MCV (mean corpuscular volume ) determinationOrdered By: Safia Ruelas on 11-26-2024 MCV (RBC) [Entitic vol] 92.0 fL 81-[address] [facility] Mean corpuscular hemoglobin (MCH) determinationOrdered By: Safia Ruelas on 11-26-2024 MCH (RBC) [Entitic mass] 29.3 pg 27.0-32.0 [facility] Mean corpuscular hemoglobin concentration (MCHC) determinationOrdered By: Safia Ruelas on 11-26-2024 MCHC (RBC) [Mass/Vol] 31.9 g/dL Low 32-36 [facility] Mean platelet volume determi nationOrdered By: Safia Ruelas on 11-26-2024 Platelet mean volume (Bld) [Entitic vol] 11.5 fL 6.2-12.0 [facility] Monocyte percentageOrdered B y: Safia Ruelas on 11-26-2024 Monocytes/100 WBC (Bld) 7.7 % 0-[address] [facility] Neutrophil percentageOrdered By: Safia Ruelas on 11-26-2024 Neutrophils/100 WBC (Bld) 52.1 % 47-70 [facility] Nucleated red blood cell per centageOrdered By: Safia Ruelas on 11-26-2024 Nucleated RBC/100 WBC (Bld) [Ratio] 0 % 0-5 [facility] Platelet countOrdered By: Balbir Ruelas on 11-26-2024 Platelets (Bld) [#/Vol] 283 10*3/uL 150-450 [facility] Potassium measurement (mass/ volume)Ordered By: Safia Ruelas on 11-26-2024 Potassium (Unsp spec) [Mass/Vol] 3.8 mmol/L 3.3-5.1 [facility] RBC Auto (Bld) [#/Vol]Ordere d By: Leonidesdesireeskye Griderbonimelanie on 11-26-2024 RBC (Bld) [#/Vol] 4.64 10*6/uL 4.2-5.4 [facility] Serum creatinine measurement (mass/volume)Ordered By: Safia Ruelas on 11-26-2024 Creatinine [Mass/Vol] 0.92 mg/dL 0.70-1.20 [facility] Serum glucose measurement (m ass/volume)Ordered By: Safia Ruelas on 11-26-2024 Glucose [Mass/Vol] 97 mg/dL 70-99 [facility] Serum or plasma calcium dayna urement (mass/volume)Ordered By: Safia Ruelas on 11-26-2024 Calcium [Mass/Vol] 10.0 mg/dL 7.6-11.0 [facility] Serum or plasma urea nitroge n measurement (mass/volume)Ordered By: Safia Ruelas on 11-26-2024 Urea nitrogen [Mass/Vol] 22 mg/dL High 4-19 [facility] Sodium levelOrdered By: Leonides josé antonio Cheobonimelanie on 11-26-2024 Sodium [Moles/Vol] 140 mmol/L 133-145 [facility] White blood cell (WBC) count Ordered By: Safia Ruelas on 11-26-2024 WBC (Bld) [#/Vol] 8.1 10*3/uL 4.4-11.0 [facility] Clostridium difficile detect ion by polymerase chain reactionOrdered By: Safia Ruelas on 11-25-2024 C. difficile DNA CHUCKY+probe Ql (Unsp spec) [facility] Absolute lymphocyte countOrd ered By: Safia Ruelas on 11-19-2024 Lymphocytes Auto (Unsp spec) [#/Vol] 2.71 10*3/uL 0.83-4.51 [facility] Absolute neutrophil countOrd ered By: Safia Ruelas on 11-19-2024 Neutrophils (Bld) [#/Vol] 5.2 10*3/uL 2.0-7.7 [facility] Anion gap in Serum or Plasma Ordered By: Safia Ruelas on 11-19-2024 Anion gap [Moles/Vol] 12 mmol/L 5-15 [facility] Automated lymphocyte count a s percentage of total leukocytesOrdered By: Safia Ruelas on 11-19-2024 Lymphocytes/100 WBC Auto (Unsp spec) 30.4 % 19-41 [facility] BUN/creatinine ratioOrdered By: jean mariemount pleasantskye Ruelas on 11-19-2024 Urea nitrogen/Creatinine [Mass ratio] 25.0 mg/mg High 10-20 [facility] Basophil percentageOrdered B y: Safia Ruelas on 11-19-2024 Basophils/100 WBC (Bld) 0.6 % 0-[address] [facility] Carbon dioxide, total [Moles /volume] in Central venous bloodOrdered By: Safia Ruelas on 11-19-2024 CO2 [Moles/Vol] 25.5 mmol/L 21.0-32.0 [facility] Chloride assayOrdered By: Balbir Ruelas on 11-19-2024 Chloride [Moles/Vol] 101 mmol/L 98-108 [facility] Eosinophil percentageOrdered By: jean mariemount pleasantskye Ruelas on 11-19-2024 Eosinophils/100 WBC (Bld) 2.1 % 0-5 [facility] Erythrocyte distribution wid th ratioOrdered By: Safia Ruelas on 11-19-2024 Erythrocyte distribution width (RBC) [Ratio] 13.9 % 11.6-14.6 [facility] Erythrocyte distribution wid th standard deviationOrdered By: sherry Ruelas on 11-19-2024 Erythrocyte distribution width (RBC) [Ratio] 46.6 fl High 35.1-43.9 [facility] Glomerular filtration rate ( GFR) estimation/1.73 sq m using serum, plasma, or whole bOrdered By: Safia Ruelas on 11-19-2024 GFR/1.73 sq M.predicted among non-blacks MDRD (S/P/Bld) [Vol rate/Area] 66 mL/min/{1.73_m2} >60 [facility] Comment on above: mL/min/1.73m2 CKD-EP I Creatinine Equation (2020) Hematocrit Auto (Bld) [Volum e fraction]Ordered By: Safia Ruelas on 11-19-2024 Hematocrit (Bld) [Volume fraction] 39.2 % 37-47 [facility] Hemoglobin measurementOrdere d By: Safia Ruelas on 11-19-2024 Hemoglobin (Bld) [Mass/Vol] 12.7 g/dL 12.0-15.0 [facility] Immature granulocytes/100 WB C Auto (Bld)Ordered By: Safia Ruelas on 11-19-2024 Immature granulocytes/100 WBC (Bld) 0.300 % 0.0-0.9 [facility] Comment on above: IG% - Immature Granu locytes (promyelocytes, myelocytes and metamyelocytes) > 1% indicates that a LEFT SHIFT is Present. MCV (mean corpuscular volume ) determinationOrdered By: Safia Ruelas on 11-19-2024 MCV (RBC) [Entitic vol] 91.4 fL 81-[address] [facility] Mean corpuscular hemoglobin (MCH) determinationOrdered By: Safia Ruelas on 11-19-2024 MCH (RBC) [Entitic mass] 29.6 pg 27.0-32.0 [facility] Mean corpuscular hemoglobin concentration (MCHC) determinationOrdered By: Safia Ruelas on 11-19-2024 MCHC (RBC) [Mass/Vol] 32.4 g/dL 32-36 [facility] Mean platelet volume determi nationOrdered By: Safia Ruelas on 11-19-2024 Platelet mean volume (Bld) [Entitic vol] 11.5 fL 6.2-12.0 [facility] Monocyte percentageOrdered B y: Safia Ruelas on 11-19-2024 Monocytes/100 WBC (Bld) 7.8 % 0-[address] [facility] Neutrophil percentageOrdered By: Safia Ruelas on 11-19-2024 Neutrophils/100 WBC (Bld) 58.8 % 47-70 [facility] Nucleated red blood cell per centageOrdered By: Safia Cheoquyen on 11-19-2024 Nucleated RBC/100 WBC (Bld) [Ratio] 0 % 0-5 [facility] Platelet countOrdered By: Balbir sherry Cheobonimelanie on 11-19-2024 Platelets (Bld) [#/Vol] 300 10*3/uL 150-450 [facility] Potassium measurement (mass/ volume)Ordered By: Safia Griderbonimelanie on 11-19-2024 Potassium (Unsp spec) [Mass/Vol] 3.8 mmol/L 3.3-5.1 [facility] RBC Auto (Bld) [#/Vol]Ordere d By: Leonidesdesireeskye Griderbonimelanie on 11-19-2024 RBC (Bld) [#/Vol] 4.29 10*6/uL 4.2-5.4 [facility] Serum creatinine measurement (mass/volume)Ordered By: Safia Ruelas on 11-19-2024 Creatinine [Mass/Vol] 0.88 mg/dL 0.70-1.20 [facility] Serum glucose measurement (m ass/volume)Ordered By: Balbirjean mariedesireeskye Ruelas on 11-19-2024 Glucose [Mass/Vol] 136 mg/dL High 70-99 [facility] Serum or plasma calcium dayna urement (mass/volume)Ordered By: Leonidesdesireeskye Griderbonimelanie on 11-19-2024 Calcium [Mass/Vol] 9.6 mg/dL 7.6-11.0 [facility] Serum or plasma urea nitroge n measurement (mass/volume)Ordered By: Safia Ruelas on 11-19-2024 Urea nitrogen [Mass/Vol] 22 mg/dL High 4-19 [facility] Sodium levelOrdered By: Balbirjean marie josé antonio Cheobonimelanie on 11-19-2024 Sodium [Moles/Vol] 139 mmol/L 133-145 [facility] White blood cell (WBC) count Ordered By: Safia Ruelas on 11-19-2024 WBC (Bld) [#/Vol] 8.9 10*3/uL 4.4-11.0 [facility] Absolute lymphocyte countOrd ered By: Leonidesjosé antonio Cheobonimelanie on 11-12-2024 Lymphocytes Auto (Unsp spec) [#/Vol] 2.49 10*3/uL 0.83-4.51 [facility] Absolute neutrophil countOrd ered By: Leonidesdesireeskye Griderbonimelanie on 11-12-2024 Neutrophils (Bld) [#/Vol] 4.2 10*3/uL 2.0-7.7 [facility] Anion gap in Serum or Plasma Ordered By: Safia Ruelas on 11-12-2024 Anion gap [Moles/Vol] 12 mmol/L 5-15 [facility] Automated lymphocyte count a s percentage of total leukocytesOrdered By: Safia Ruelas on 11-12-2024 Lymphocytes/100 WBC Auto (Unsp spec) 31.9 % 19-41 [facility] BUN/creatinine ratioOrdered By: Safia Ruelas on 11-12-2024 Urea nitrogen/Creatinine [Mass ratio] 28.1 mg/mg High 10-20 [facility] Basophil percentageOrdered B y: Safia Ruelas on 11-12-2024 Basophils/100 WBC (Bld) 0.6 % 0-1 [facility] Carbon dioxide, total [Moles /volume] in Central venous bloodOrdered By: Safia Ruelas on 11-12-2024 CO2 [Moles/Vol] 25.1 mmol/L 21.0-32.0 [facility] Chloride assayOrdered By: Balbir Ruelas on 11-12-2024 Chloride [Moles/Vol] 102 mmol/L 98-108 [facility] Eosinophil percentageOrdered By: sherry Ruelas on 11-12-2024 Eosinophils/100 WBC (Bld) 2.8 % [facility] Erythrocyte distribution wid th ratioOrdered By: Safia Ruelas on 11-12-2024 Erythrocyte distribution width (RBC) [Ratio] 13.8 % 11.6-14.6 [facility] Erythrocyte distribution wid th standard deviationOrdered By: Safia Ruelas on 11-12-2024 Erythrocyte distribution width (RBC) [Ratio] 46.7 fl High 35.1-43.9 [facility] Glomerular filtration rate ( GFR) estimation/1.73 sq m using serum, plasma, or whole bOrdered By: Safia Ruelas on 11-12-2024 GFR/1.73 sq M.predicted among non-blacks MDRD (S/P/Bld) [Vol rate/Area] 70 mL/min/{1.73_m2} >60 [facility] Comment on above: mL/min/1.73m2 CKD-EP I Creatinine Equation (2020) Hematocrit Auto (Bld) [Volum e fraction]Ordered By: jean mariemount pleasantskye Ruelas on 11-12-2024 Hematocrit (Bld) [Volume fraction] 40.6 % 37-47 [facility] Hemoglobin measurementOrdere d By: Safia Ruelas on 11-12-2024 Hemoglobin (Bld) [Mass/Vol] 13.2 g/dL 12.0-15.0 [facility] Immature granulocytes/100 WB C Auto (Bld)Ordered By: Safia Ruelas on 11-12-2024 Immature granulocytes/100 WBC (Bld) 0.400 % 0.0-0.9 [facility] Comment on above: IG% - Immature Granu locytes (promyelocytes, myelocytes and metamyelocytes) > 1% indicates that a LEFT SHIFT is Present. MCV (mean corpuscular volume ) determinationOrdered By: Safia Ruelas on 11-12-2024 MCV (RBC) [Entitic vol] 92.1 fL 81-[address] [facility] Mean corpuscular hemoglobin (MCH) determinationOrdered By: Safia Ruelas on 11-12-2024 MCH (RBC) [Entitic mass] 29.9 pg 27.0-32.0 [facility] Mean corpuscular hemoglobin concentration (MCHC) determinationOrdered By: jean mariemount pleasantskye Ruelas on 11-12-2024 MCHC (RBC) [Mass/Vol] 32.5 g/dL 32-36 [facility] Mean platelet volume determi nationOrdered By: Safia Ruelas on 11-12-2024 Platelet mean volume (Bld) [Entitic vol] 11.7 fL 6.2-12.0 [facility] Monocyte percentageOrdered B y: Safia Ruelas on 11-12-2024 Monocytes/100 WBC (Bld) 10.0 % 0-[address] [facility] Neutrophil percentageOrdered By: Safia Ruelas on 11-12-2024 Neutrophils/100 WBC (Bld) 54.3 % 47-70 [facility] Nucleated red blood cell per centageOrdered By: Safia Ruelas on 11-12-2024 Nucleated RBC/100 WBC (Bld) [Ratio] 0 % 0-5 [facility] Platelet countOrdered By: Balbir Ruelas on 11-12-2024 Platelets (Bld) [#/Vol] 304 10*3/uL 150-450 [facility] Potassium measurement (mass/ volume)Ordered By: Safia Ruelas on 11-12-2024 Potassium (Unsp spec) [Mass/Vol] 3.9 mmol/L 3.3-5.1 [facility] RBC Auto (Bld) [#/Vol]Ordere d By: Safia Ruelas on 11-12-2024 RBC (Bld) [#/Vol] 4.41 10*6/uL 4.2-5.4 [facility] Serum creatinine measurement (mass/volume)Ordered By: Safia Ruelas on 11-12-2024 Creatinine [Mass/Vol] 0.84 mg/dL 0.70-1.20 [facility] Serum glucose measurement (m ass/volume)Ordered By: Sfaia Ruelas on 11-12-2024 Glucose [Mass/Vol] 112 mg/dL High 70-99 [facility] Serum or plasma calcium dayna urement (mass/volume)Ordered By: Safia Ruelas on 11-12-2024 Calcium [Mass/Vol] 9.7 mg/dL 7.6-11.0 [facility] Serum or plasma urea nitroge n measurement (mass/volume)Ordered By: Safia Ruelas on 11-12-2024 Urea nitrogen [Mass/Vol] 24 mg/dL High 4-19 [facility] Sodium levelOrdered By: Leonides josé antonio Cheobonimelanie on 11-12-2024 Sodium [Moles/Vol] 139 mmol/L 133-145 [facility] White blood cell (WBC) count Ordered By: Leonidesjosé antonio Cheobonimelanie on 11-12-2024 WBC (Bld) [#/Vol] 7.8 10*3/uL 4.4-11.0 [facility] Absolute lymphocyte countOrd ered By: Leonidesdesireeskye Griderbonimelanie on 11-05-2024 Lymphocytes Auto (Unsp spec) [#/Vol] 2.91 10*3/uL 0.83-4.51 [facility] Absolute neutrophil countOrd ered By: Safia Griderbonimelanie on 11-05-2024 Neutrophils (Bld) [#/Vol] 4.6 10*3/uL 2.0-7.7 [facility] Anion gap in Serum or Plasma Ordered By: Safia Griderbonimelanie on 11-05-2024 Anion gap [Moles/Vol] 13 mmol/L 5-15 [facility] Automated lymphocyte count a s percentage of total leukocytesOrdered By: Safia Ruelas on 11-05-2024 Lymphocytes/100 WBC Auto (Unsp spec) 33.7 % 19-41 [facility] BUN/creatinine ratioOrdered By: Safia Griderbonimelanie on 11-05-2024 Urea nitrogen/Creatinine [Mass ratio] 23.3 mg/mg High 10-20 [facility] Basophil percentageOrdered B y: Safia Griderbonimelanie on 11-05-2024 Basophils/100 WBC (Bld) 0.9 % 0-1 [facility] Carbon dioxide, total [Moles /volume] in Central venous bloodOrdered By: Safia Ruelas on 11-05-2024 CO2 [Moles/Vol] 24.2 mmol/L 21.0-32.0 [facility] Chloride assayOrdered By: Balbir Ruelas on 11-05-2024 Chloride [Moles/Vol] 102 mmol/L 98-108 [facility] Eosinophil percentageOrdered By: Safia Ruelas on 11-05-2024 Eosinophils/100 WBC (Bld) 2.7 % 0-5 [facility] Erythrocyte distribution wid th ratioOrdered By: Safia Ruelas on 11-05-2024 Erythrocyte distribution width (RBC) [Ratio] 13.9 % 11.6-14.6 [facility] Erythrocyte distribution wid th standard deviationOrdered By: Safia Ruelas on 11-05-2024 Erythrocyte distribution width (RBC) [Ratio] 47.1 fl High 35.1-43.9 [facility] Glomerular filtration rate ( GFR) estimation/1.73 sq m using serum, plasma, or whole bOrdered By: Safia Ruelas on 11-05-2024 GFR/1.73 sq M.predicted among non-blacks MDRD (S/P/Bld) [Vol rate/Area] 62 mL/min/{1.73_m2} >60 [facility] Comment on above: mL/min/1.73m2 CKD-EP I Creatinine Equation (2020) Hematocrit Auto (Bld) [Volum e fraction]Ordered By: Safia Ruelas on 11-05-2024 Hematocrit (Bld) [Volume fraction] 40.7 % 37-47 [facility] Hemoglobin measurementOrdere d By: Safia Ruelas on 11-05-2024 Hemoglobin (Bld) [Mass/Vol] 12.9 g/dL 12.0-15.0 [facility] Immature granulocytes/100 WB C Auto (Bld)Ordered By: Safia Ruelas 11-05-2024 Immature granulocytes/100 WBC (Bld) 0.500 % 0.0-0.9 [facility] Comment on above: IG% - Immature Granu locytes (promyelocytes, myelocytes and metamyelocytes) > 1% indicates that a LEFT SHIFT is Present. MCV (mean corpuscular volume ) determinationOrdered By: Safia Ruelas on 11-05-2024 MCV (RBC) [Entitic vol] 92.9 fL 81-[address] [facility] Mean corpuscular hemoglobin (MCH) determinationOrdered By: Leonidesmount pleasantskye Ruelas 11-05-2024 MCH (RBC) [Entitic mass] 29.5 pg 27.0-32.0 [facility] Mean corpuscular hemoglobin concentration (MCHC) determinationOrdered By: Safia Ruelas on 11-05-2024 MCHC (RBC) [Mass/Vol] 31.7 g/dL Low 32-36 [facility] Mean platelet volume determi nationOrdered By: Safia Ruelas on 11-05-2024 Platelet mean volume (Bld) [Entitic vol] 11.2 fL 6.2-12.0 [facility] Monocyte percentageOrdered B y: Safia Ruelas on 11-05-2024 Monocytes/100 WBC (Bld) 8.6 % 0-[address] [facility] Neutrophil percentageOrdered By: Safia Ruelas on 11-05-2024 Neutrophils/100 WBC (Bld) 53.6 % 47-70 [facility] Nucleated red blood cell per centageOrdered By: Safia Ruelas on 11-05-2024 Nucleated RBC/100 WBC (Bld) [Ratio] 0 % 0-5 [facility] Platelet countOrdered By: Balbir Ruelas on 11-05-2024 Platelets (Bld) [#/Vol] 318 10*3/uL 150-450 [facility] Potassium measurement (mass/ volume)Ordered By: Safia Ruelas on 11-05-2024 Potassium (Unsp spec) [Mass/Vol] 4.0 mmol/L 3.3-5.1 [facility] RBC Auto (Bld) [#/Vol]Ordere d By: Safia Ruelas on 11-05-2024 RBC (Bld) [#/Vol] 4.38 10*6/uL 4.2-5.4 [facility] Serum creatinine measurement (mass/volume)Ordered By: Safia Ruelas on 11-05-2024 Creatinine [Mass/Vol] 0.93 mg/dL 0.70-1.20 [facility] Serum glucose measurement (m ass/volume)Ordered By: Safia Ruelas on 11-05-2024 Glucose [Mass/Vol] 70 mg/dL 70-99 [facility] Serum or plasma calcium dayna urement (mass/volume)Ordered By: Safia Ruelas on 11-05-2024 Calcium [Mass/Vol] 9.5 mg/dL 7.6-11.0 [facility] Serum or plasma urea nitroge n measurement (mass/volume)Ordered By: Bandarskye Griderbonimelanie on 11-05-2024 Urea nitrogen [Mass/Vol] 22 mg/dL High 4-19 [facility] Sodium levelOrdered By: Leonides Ruelas on 11-05-2024 Sodium [Moles/Vol] 139 mmol/L 133-145 [facility] White blood cell (WBC) count Ordered By: Balbirjean mariejosé antonio Cheobonimelanie on 11-05-2024 WBC (Bld) [#/Vol] 8.6 10*3/uL 4.4-11.0 [facility] Absolute lymphocyte countOrd ered By: Balbirjean mariejosé antonio Cheobonimelanie on 10-29-2024 Lymphocytes Auto (Unsp spec) [#/Vol] 2.69 10*3/uL 0.83-4.51 [facility] Absolute neutrophil countOrd ered By: Safia Cheobonimelanie on 10-29-2024 Neutrophils (Bld) [#/Vol] 4.5 10*3/uL 2.0-7.7 [facility] Anion gap in Serum or Plasma Ordered By: Balbirjean mariejosé anotnio Cheobonimelanie on 10-29-2024 Anion gap [Moles/Vol] 11 mmol/L 5-15 [facility] Automated lymphocyte count a s percentage of total leukocytesOrdered By: Balbirsherry Griderbonimelanie on 10-29-2024 Lymphocytes/100 WBC Auto (Unsp spec) 32.6 % 19-41 [facility] BUN/creatinine ratioOrdered By: Balbirjean mariedesireeskye Griderbonimelanie on 10-29-2024 Urea nitrogen/Creatinine [Mass ratio] 25.2 mg/mg High 10-20 [facility] Basophil percentageOrdered B y: Safia Cheobonimelanie on 10-29-2024 Basophils/100 WBC (Bld) 0.7 % 0-1 [facility] Carbon dioxide, total [Moles /volume] in Central venous bloodOrdered By: Balbirsherry Griderbonimelanie on 10-29-2024 CO2 [Moles/Vol] 25.7 mmol/L 21.0-32.0 [facility] Chloride assayOrdered By: Balbir Ruelas on 10-29-2024 Chloride [Moles/Vol] 102 mmol/L 98-108 [facility] Eosinophil percentageOrdered By: Safia Ruelas on 10-29-2024 Eosinophils/100 WBC (Bld) 2.1 % 0-5 [facility] Erythrocyte distribution wid th ratioOrdered By: Safia Ruelas on 10-29-2024 Erythrocyte distribution width (RBC) [Ratio] 13.6 % 11.6-14.6 [facility] Erythrocyte distribution wid th standard deviationOrdered By: Safia Ruelas on 10-29-2024 Erythrocyte distribution width (RBC) [Ratio] 46.6 fl High 35.1-43.9 [facility] Glomerular filtration rate ( GFR) estimation/1.73 sq m using serum, plasma, or whole bOrdered By: Safia Ruelas on 10-29-2024 GFR/1.73 sq M.predicted among non-blacks MDRD (S/P/Bld) [Vol rate/Area] 59 mL/min/{1.73_m2} Low >60 [facility] Comment on above: mL/min/1.73m2 CKD-EP I Creatinine Equation (2020) Hematocrit Auto (Bld) [Volum e fraction]Ordered By: Safia Ruelas on 10-29-2024 Hematocrit (Bld) [Volume fraction] 37.8 % 37-47 [facility] Hemoglobin measurementOrdere d By: Safia Ruelas on 10-29-2024 Hemoglobin (Bld) [Mass/Vol] 12.2 g/dL 12.0-15.0 [facility] Immature granulocytes/100 WB C Auto (Bld)Ordered By: Safia Ruelas 10-29-2024 Immature granulocytes/100 WBC (Bld) 0.400 % 0.0-0.9 [facility] Comment on above: IG% - Immature Granu locytes (promyelocytes, myelocytes and metamyelocytes) > 1% indicates that a LEFT SHIFT is Present. MCV (mean corpuscular volume ) determinationOrdered By: Safia Ruelas on 10-29-2024 MCV (RBC) [Entitic vol] 92.2 fL 81-[address] [facility] Mean corpuscular hemoglobin (MCH) determinationOrdered By: Safia Ruelas on 10-29-2024 MCH (RBC) [Entitic mass] 29.8 pg 27.0-32.0 [facility] Mean corpuscular hemoglobin concentration (MCHC) determinationOrdered By: Safia Ruelas on 10-29-2024 MCHC (RBC) [Mass/Vol] 32.3 g/dL 32-36 [facility] Mean platelet volume determi nationOrdered By: Safia Ruelas on 10-29-2024 Platelet mean volume (Bld) [Entitic vol] 11.1 fL 6.2-12.0 [facility] Monocyte percentageOrdered B y: Safia Ruelas on 10-29-2024 Monocytes/100 WBC (Bld) 9.9 % 0-[address] [facility] Neutrophil percentageOrdered By: Safia Ruelas on 10-29-2024 Neutrophils/100 WBC (Bld) 54.3 % 47-70 [facility] Nucleated red blood cell per centageOrdered By: Safia Ruelas on 10-29-2024 Nucleated RBC/100 WBC (Bld) [Ratio] 0 % 0-5 [facility] Platelet countOrdered By: Balbir jean mariejosé antonio Ruelas on 10-29-2024 Platelets (Bld) [#/Vol] 283 10*3/uL 150-450 [facility] Potassium measurement (mass/ volume)Ordered By: Safia Ruelas on 10-29-2024 Potassium (Unsp spec) [Mass/Vol] 3.9 mmol/L 3.3-5.1 [facility] RBC Auto (Bld) [#/Vol]Ordere d By: Safia Ruelas on 10-29-2024 RBC (Bld) [#/Vol] 4.10 10*6/uL Low 4.2-5.4 [facility] Serum creatinine measurement (mass/volume)Ordered By: Safia Ruelas on 10-29-2024 Creatinine [Mass/Vol] 0.97 mg/dL 0.70-1.20 [facility] Serum glucose measurement (m ass/volume)Ordered By: Safia Ruelas on 10-29-2024 Glucose [Mass/Vol] 74 mg/dL 70-99 [facility] Serum or plasma calcium dayna urement (mass/volume)Ordered By: Safia Ruelas on 10-29-2024 Calcium [Mass/Vol] 9.5 mg/dL 7.6-11.0 [facility] Serum or plasma urea nitroge n measurement (mass/volume)Ordered By: Safia Ruelas on 10-29-2024 Urea nitrogen [Mass/Vol] 24 mg/dL High 4-19 [facility] Sodium levelOrdered By: Leonides Ruelas on 10-29-2024 Sodium [Moles/Vol] 138 mmol/L 133-145 [facility] White blood cell (WBC) count Ordered By: Safia Ruelas on 10-29-2024 WBC (Bld) [#/Vol] 8.3 10*3/uL 4.4-11.0 [facility] Bilirubin Test strip Ql (U)O rdered By: Safia Ruelas on 10-23-2024 Bilirubin Ql (U) Negative Negative [facility] Ketones Test strip Ql (U)Ord ered By: Safia Ruelas on 10-23-2024 Ketones Ql (U) Negative Negative [facility] Nitrite Test strip Ql (U)Ord ered By: Safia Ruelas on 10-23-2024 Nitrite Ql (U) Positive High Negative [facility] Protein Test strip Ql (U)Ord ered By: Safia Ruelas on 10-23-2024 Protein Ql (U) 15 mg/dl High Negative [facility] Urine clarityOrdered By: Augusto Ruelas on 10-23-2024 Clarity (U) Clear Clear [facility] Urine color determinationOrd ered By: Safia Ruelas on 10-23-2024 Color (U) Yellow Yellow [facility] Urine cultureOrdered By: Augusto Ruelas on 10-23-2024 Bacteria identified Cx Nom (U) Klebsiella pneumoniae sp pneum Abnormal [facility] Urine glucose detectionOrder ed By: Safia Ruelas on 10-23-2024 Glucose Ql (U) Normal mg/dl Normal [facility] Urine leukocyte esterase det ection by dipstickOrdered By: Safia Ruelas on 10-23-2024 Leukocyte esterase Test strip Ql (U) 500 /ul High Negative [facility] Urine pHOrdered By: Mazin Ruelas on 10-23-2024 pH (U) 6.0 [pH] 5.0 - 8.0 [facility] Urine specific gravity measu rementOrdered By: Safia Ruelas on 10-23-2024 Specific gravity (U) [Rel density] 1.010 1.002-1.030 [facility] Urine urobilinogen measureme ntOrdered By: Safia Ruelas on 10-23-2024 Urobilinogen Ql (U) Normal mg/dl Normal [facility] Absolute lymphocyte countOrd ered By: Safia Ruelas on 10-22-2024 Lymphocytes Auto (Unsp spec) [#/Vol] 3.07 10*3/uL 0.83-4.51 [facility] Absolute neutrophil countOrd ered By: Safia Ruelas on 10-22-2024 Neutrophils (Bld) [#/Vol] 4.6 10*3/uL 2.0-7.7 [facility] Anion gap in Serum or Plasma Ordered By: Safia Ruelas on 10-22-2024 Anion gap [Moles/Vol] 15 mmol/L 5-15 [facility] Automated lymphocyte count a s percentage of total leukocytesOrdered By: Safia Ruelas on 10-22-2024 Lymphocytes/100 WBC Auto (Unsp spec) 34.8 % 19-41 [facility] BUN/creatinine ratioOrdered By: Safia Ruelas on 10-22-2024 Urea nitrogen/Creatinine [Mass ratio] 28.6 mg/mg High 10-20 [facility] Basophil percentageOrdered B y: Safia Ruelas on 10-22-2024 Basophils/100 WBC (Bld) 0.9 % 0-[address] [facility] Carbon dioxide, total [Moles /volume] in Central venous bloodOrdered By: Safia Ruelas on 10-22-2024 CO2 [Moles/Vol] 23.1 mmol/L 21.0-32.0 [facility] Chloride assayOrdered By: Balbir Ruelas on 10-22-2024 Chloride [Moles/Vol] 100 mmol/L 98-108 [facility] Eosinophil percentageOrdered By: sherry Ruelas on 10-22-2024 Eosinophils/100 WBC (Bld) 3.1 % 0-5 [facility] Erythrocyte distribution wid th ratioOrdered By: jean mariemount pleasantskye Ruelas on 10-22-2024 Erythrocyte distribution width (RBC) [Ratio] 13.6 % 11.6-14.6 [facility] Erythrocyte distribution wid th standard deviationOrdered By: jean mariemount pleasantskye Ruelas on 10-22-2024 Erythrocyte distribution width (RBC) [Ratio] 45.9 fl High 35.1-43.9 [facility] Glomerular filtration rate ( GFR) estimation/1.73 sq m using serum, plasma, or whole bOrdered By: Safia Ruelas on 10-22-2024 GFR/1.73 sq M.predicted among non-blacks MDRD (S/P/Bld) [Vol rate/Area] 60 mL/min/{1.73_m2} >60 [facility] Comment on above: mL/min/1.73m2 CKD-EP I Creatinine Equation (2020) Hematocrit Auto (Bld) [Volum e fraction]Ordered By: Safia Ruelas on 10-22-2024 Hematocrit (Bld) [Volume fraction] 40.7 % 37-47 [facility] Hemoglobin measurementOrdere d By: Safia Ruelas on 10-22-2024 Hemoglobin (Bld) [Mass/Vol] 13.1 g/dL 12.0-15.0 [facility] Immature granulocytes/100 WB C Auto (Bld)Ordered By: Safia Ruelas on 10-22-2024 Immature granulocytes/100 WBC (Bld) 1.400 % High 0.0-0.9 [facility] Comment on above: IG% - Immature Granu locytes (promyelocytes, myelocytes and metamyelocytes) > 1% indicates that a LEFT SHIFT is Present. MCV (mean corpuscular volume ) determinationOrdered By: Safia Ruelas on 10-22-2024 MCV (RBC) [Entitic vol] 91.9 fL 81-[address] [facility] Mean corpuscular hemoglobin (MCH) determinationOrdered By: Safia Ruelas on 10-22-2024 MCH (RBC) [Entitic mass] 29.6 pg 27.0-32.0 [facility] Mean corpuscular hemoglobin concentration (MCHC) determinationOrdered By: Safia Ruelas on 10-22-2024 MCHC (RBC) [Mass/Vol] 32.2 g/dL 32-36 [facility] Mean platelet volume determi nationOrdered By: Safia Ruelas on 10-22-2024 Platelet mean volume (Bld) [Entitic vol] 11.2 fL 6.2-12.0 [facility] Monocyte percentageOrdered B y: Safia Ruelas on 10-22-2024 Monocytes/100 WBC (Bld) 7.7 % 0-[address] [facility] Neutrophil percentageOrdered By: [facility] on 10-22-2024 Neutrophils/100 WBC (Bld) 52.1 % 47-70 [facility] Nucleated red blood cell per centageOrdered By: Safia Ruelas on 10-22-2024 Nucleated RBC/100 WBC (Bld) [Ratio] 0 % 0-5 [facility] Platelet countOrdered By: Balbir jean mariejosé antonio Ruelas on 10-22-2024 Platelets (Bld) [#/Vol] 334 10*3/uL 150-450 [facility] Potassium measurement (mass/ volume)Ordered By: Safia Ruelas on 10-22-2024 Potassium (Unsp spec) [Mass/Vol] 3.7 mmol/L 3.3-5.1 [facility] RBC Auto (Bld) [#/Vol]Ordere d By: Safia Ruelas on 10-22-2024 RBC (Bld) [#/Vol] 4.43 10*6/uL 4.2-5.4 [facility] Serum creatinine measurement (mass/volume)Ordered By: Safia Ruelas on 10-22-2024 Creatinine [Mass/Vol] 0.96 mg/dL 0.70-1.20 [facility] Serum glucose measurement (m ass/volume)Ordered By: Safia Ruelas on 10-22-2024 Glucose [Mass/Vol] 106 mg/dL High 70-99 [facility] Serum or plasma calcium dayna urement (mass/volume)Ordered By: Safia Ruelas on 10-22-2024 Calcium [Mass/Vol] 9.4 mg/dL 7.6-11.0 [facility] Serum or plasma urea nitroge n measurement (mass/volume)Ordered By: Safia Ruelas on 10-22-2024 Urea nitrogen [Mass/Vol] 28 mg/dL High 4-19 [facility] Sodium levelOrdered By: Leonides Ruelas on 10-22-2024 Sodium [Moles/Vol] 138 mmol/L 133-145 [facility] TSH DL <= 0.005 mIU/L QnOrde red By: Safia Ruelas on 10-22-2024 TSH Qn 4.630 uIU/mL High 0.300-4.200 [facility] White blood cell (WBC) count Ordered By: Safia Ruelas on 10-22-2024 WBC (Bld) [#/Vol] 8.8 10*3/uL 4.4-11.0 [facility] Absolute lymphocyte countOrd ered By: Safia Ruelas on 10-15-2024 Lymphocytes Auto (Unsp spec) [#/Vol] 3.04 10*3/uL 0.83-4.51 [facility] Absolute neutrophil countOrd ered By: Safia Ruelas on 10-15-2024 Neutrophils (Bld) [#/Vol] 4.3 10*3/uL 2.0-7.7 [facility] Anion gap in Serum or Plasma Ordered By: Safia Ruelas on 10-15-2024 Anion gap [Moles/Vol] 12 mmol/L 5-15 [facility] Automated lymphocyte count a s percentage of total leukocytesOrdered By: Safia Ruelas on 10-15-2024 Lymphocytes/100 WBC Auto (Unsp spec) 36.7 % 19-41 [facility] BUN/creatinine ratioOrdered By: Safia Ruelas on 10-15-2024 Urea nitrogen/Creatinine [Mass ratio] 36.5 mg/mg High 10-20 [facility] Basophil percentageOrdered B y: Safia Ruelas on 10-15-2024 Basophils/100 WBC (Bld) 0.7 % 0-[address] [facility] Carbon dioxide, total [Moles /volume] in Central venous bloodOrdered By: Safia Ruelas on 10-15-2024 CO2 [Moles/Vol] 25.2 mmol/L 21.0-32.0 [facility] Chloride assayOrdered By: Balbir jean mariejosé antonio Ruelas on 10-15-2024 Chloride [Moles/Vol] 100 mmol/L 98-108 [facility] Eosinophil percentageOrdered By: Leonidesmount pleas[facility]kye Ruelas on 10-15-2024 Eosinophils/100 WBC (Bld) 2.4 % 0-5 [facility] Erythrocyte distribution wid th ratioOrdered By: jean mariemount pleasantskye Ruelas on 10-15-2024 Erythrocyte distribution width (RBC) [Ratio] 13.5 % 11.6-14.6 [facility] Erythrocyte distribution wid th standard deviationOrdered By: [facility] on 10-15-2024 Erythrocyte distribution width (RBC) [Ratio] 45.2 fl High 35.1-43.9 [facility] Glomerular filtration rate ( GFR) estimation/1.73 sq m using serum, plasma, or whole bOrdered By: Safia Ruelas on 10-15-2024 GFR/1.73 sq M.predicted among non-blacks MDRD (S/P/Bld) [Vol rate/Area] 71 mL/min/{1.73_m2} >60 [facility] Comment on above: mL/min/1.73m2 CKD-EP I Creatinine Equation (2020) Hematocrit Auto (Bld) [Volum e fraction]Ordered By: Safia Ruelas on 10-15-2024 Hematocrit (Bld) [Volume fraction] 40.3 % 37-47 [facility] Hemoglobin measurementOrdere d By: Safia Ruelas on 10-15-2024 Hemoglobin (Bld) [Mass/Vol] 13.3 g/dL 12.0-15.0 [facility] Immature granulocytes/100 WB C Auto (Bld)Ordered By: Safia Ruelas on 10-15-2024 Immature granulocytes/100 WBC (Bld) 0.400 % 0.0-0.9 [facility] Comment on above: IG% - Immature Granu locytes (promyelocytes, myelocytes and metamyelocytes) > 1% indicates that a LEFT SHIFT is Present. MCV (mean corpuscular volume ) determinationOrdered By: Safia Ruelas on 10-15-2024 MCV (RBC) [Entitic vol] 91.0 fL 81-[address] [facility] Mean corpuscular hemoglobin (MCH) determinationOrdered By: Safia Ruelas on 10-15-2024 MCH (RBC) [Entitic mass] 30.0 pg 27.0-32.0 [facility] Mean corpuscular hemoglobin concentration (MCHC) determinationOrdered By: Safia Ruelas on 10-15-2024 MCHC (RBC) [Mass/Vol] 33.0 g/dL 32-36 [facility] Mean platelet volume determi nationOrdered By: Safia Ruelas on 10-15-2024 Platelet mean volume (Bld) [Entitic vol] 11.9 fL 6.2-12.0 [facility] Monocyte percentageOrdered B y: Safia Ruelas on 10-15-2024 Monocytes/100 WBC (Bld) 8.2 % 0-[address] [facility] Neutrophil percentageOrdered By: Safia Ruelas on 10-15-2024 Neutrophils/100 WBC (Bld) 51.6 % 47-70 [facility] Nucleated red blood cell per centageOrdered By: Safia Ruelas on 10-15-2024 Nucleated RBC/100 WBC (Bld) [Ratio] 0 % 0-5 [facility] Platelet countOrdered By: Balbir Ruelas on 10-15-2024 Platelets (Bld) [#/Vol] 221 10*3/uL 150-450 [facility] Potassium measurement (mass/ volume)Ordered By: Safia Ruelas on 10-15-2024 Potassium (Unsp spec) [Mass/Vol] 3.8 mmol/L 3.3-5.1 [facility] RBC Auto (Bld) [#/Vol]Ordere d By: Safia Ruelas on 10-15-2024 RBC (Bld) [#/Vol] 4.43 10*6/uL 4.2-5.4 [facility] Serum creatinine measurement (mass/volume)Ordered By: Safia Ruelas on 10-15-2024 Creatinine [Mass/Vol] 0.83 mg/dL 0.70-1.20 [facility] Serum glucose measurement (m ass/volume)Ordered By: Safia Ruelas on 10-15-2024 Glucose [Mass/Vol] 68 mg/dL Low 70-99 [facility] Serum or plasma calcium dayna urement (mass/volume)Ordered By: Safia Ruelas on 10-15-2024 Calcium [Mass/Vol] 9.3 mg/dL 7.6-11.0 [facility] Serum or plasma urea nitroge n measurement (mass/volume)Ordered By: Safia Ruelas on 10-15-2024 Urea nitrogen [Mass/Vol] 30 mg/dL High 4-19 [facility] Sodium levelOrdered By: Leonides Ruelas on 10-15-2024 Sodium [Moles/Vol] 138 mmol/L 133-145 [facility] White blood cell (WBC) count Ordered By: Safia Ruelas on 10-15-2024 WBC (Bld) [#/Vol] 8.3 10*3/uL 4.4-11.0 [facility] Absolute lymphocyte countOrd ered By: Safia Ruelas on 10-08-2024 Lymphocytes Auto (Unsp spec) [#/Vol] 2.52 10*3/uL 0.83-4.51 [facility] Absolute neutrophil countOrd ered By: Safia Ruelas on 10-08-2024 Neutrophils (Bld) [#/Vol] 4.9 10*3/uL 2.0-7.7 [facility] Anion gap in Serum or Plasma Ordered By: Safia Ruelas on 10-08-2024 Anion gap [Moles/Vol] 14 mmol/L 5-15 [facility] Automated lymphocyte count a s percentage of total leukocytesOrdered By: Safia Ruelas on 10-08-2024 Lymphocytes/100 WBC Auto (Unsp spec) 29.4 % 19-41 [facility] BUN/creatinine ratioOrdered By: Safia Ruelas on 10-08-2024 Urea nitrogen/Creatinine [Mass ratio] 34.1 mg/mg High 10-20 [facility] Basophil percentageOrdered B y: Safia Ruelas on 10-08-2024 Basophils/100 WBC (Bld) 0.7 % 0-1 [facility] Carbon dioxide, total [Moles /volume] in Central venous bloodOrdered By: Safia Ruelas on 10-08-2024 CO2 [Moles/Vol] 24.0 mmol/L 21.0-32.0 [facility] Chloride assayOrdered By: Balbir Ruelas on 10-08-2024 Chloride [Moles/Vol] 100 mmol/L 98-108 [facility] Eosinophil percentageOrdered By: Safia Ruelas on 10-08-2024 Eosinophils/100 WBC (Bld) 2.6 % 0-5 [facility] Erythrocyte distribution wid th ratioOrdered By: Safia Ruelas on 10-08-2024 Erythrocyte distribution width (RBC) [Ratio] 13.2 % 11.6-14.6 [facility] Erythrocyte distribution wid th standard deviationOrdered By: Safia Ruelas on 10-08-2024 Erythrocyte distribution width (RBC) [Ratio] 45.3 fl High 35.1-43.9 [facility] Glomerular filtration rate ( GFR) estimation/1.73 sq m using serum, plasma, or whole bOrdered By: Safia Ruelas on 10-08-2024 GFR/1.73 sq M.predicted among non-blacks MDRD (S/P/Bld) [Vol rate/Area] 65 mL/min/{1.73_m2} >60 [facility] Comment on above: mL/min/1.73m2 CKD-EP I Creatinine Equation (2020) Hematocrit Auto (Bld) [Volum e fraction]Ordered By: Safia Ruelas on 10-08-2024 Hematocrit (Bld) [Volume fraction] 41.7 % 37-47 [facility] Hemoglobin measurementOrdere d By: Safia Ruelas on 10-08-2024 Hemoglobin (Bld) [Mass/Vol] 13.3 g/dL 12.0-15.0 [facility] Immature granulocytes/100 WB C Auto (Bld)Ordered By: jean mraiemount pleasantskye Ruelas on 10-08-2024 Immature granulocytes/100 WBC (Bld) 0.400 % 0.0-0.9 [facility] Comment on above: IG% - Immature Granu locytes (promyelocytes, myelocytes and metamyelocytes) > 1% indicates that a LEFT SHIFT is Present. MCV (mean corpuscular volume ) determinationOrdered By: Safia Ruelas on 10-08-2024 MCV (RBC) [Entitic vol] 92.7 fL 81-[address] [facility] Mean corpuscular hemoglobin (MCH) determinationOrdered By: Safia Ruelas on 10-08-2024 MCH (RBC) [Entitic mass] 29.6 pg 27.0-32.0 [facility] Mean corpuscular hemoglobin concentration (MCHC) determinationOrdered By: Safia Ruelas on 10-08-2024 MCHC (RBC) [Mass/Vol] 31.9 g/dL Low 32-36 [facility] Mean platelet volume determi nationOrdered By: Safia Ruelas on 10-08-2024 Platelet mean volume (Bld) [Entitic vol] 11.0 fL 6.2-12.0 [facility] Monocyte percentageOrdered B y: Safia Ruelas on 10-08-2024 Monocytes/100 WBC (Bld) 9.2 % 0-[address] [facility] Neutrophil percentageOrdered By: Safia Ruelas on 10-08-2024 Neutrophils/100 WBC (Bld) 57.7 % 47-70 [facility] Nucleated red blood cell per centageOrdered By: Safia Ruelas on 10-08-2024 Nucleated RBC/100 WBC (Bld) [Ratio] 0 % 0-5 [facility] Platelet countOrdered By: Balbir Ruelas on 10-08-2024 Platelets (Bld) [#/Vol] 323 10*3/uL 150-450 [facility] Potassium measurement (mass/ volume)Ordered By: Safia Ruelas on 10-08-2024 Potassium (Unsp spec) [Mass/Vol] 4.1 mmol/L 3.3-5.1 [facility] RBC Auto (Bld) [#/Vol]Ordere d By: Safia Ruelas on 10-08-2024 RBC (Bld) [#/Vol] 4.50 10*6/uL 4.2-5.4 [facility] Serum creatinine measurement (mass/volume)Ordered By: Safia Ruelas on 10-08-2024 Creatinine [Mass/Vol] 0.90 mg/dL 0.70-1.20 [facility] Serum glucose measurement (m ass/volume)Ordered By: Safia Ruelas on 10-08-2024 Glucose [Mass/Vol] 82 mg/dL 70-99 [facility] Serum or plasma calcium dayna urement (mass/volume)Ordered By: Safia Ruelas on 10-08-2024 Calcium [Mass/Vol] 9.6 mg/dL 7.6-11.0 [facility] Serum or plasma urea nitroge n measurement (mass/volume)Ordered By: Safia Ruelas on 10-08-2024 Urea nitrogen [Mass/Vol] 31 mg/dL High 4-19 [facility] Sodium levelOrdered By: Leonides Ruelas on 10-08-2024 Sodium [Moles/Vol] 138 mmol/L 133-145 [facility] White blood cell (WBC) count Ordered By: Safia Ruelas on 10-08-2024 WBC (Bld) [#/Vol] 8.6 10*3/uL 4.4-11.0 [facility] 12 Lead EKG performed by [facility] on 10-02-2024 12 Lead EKG performed by [facility] [address] [place] [address] 12 Lead EKG performed by [facility] 10/02/24920 MR#: [id number] Acct: [id number] Name: LINDSAY ACUNA Rep #: [id number] : 1945 78 From: Mj Benavides MD Attending Dr: Dr. Mj Benavides MD Status: DEP A MB Ordering Dr: Mj Benavides MD Date: 10/02/24 Location: [facility] Sex: F C Admitted: BMS/12 Lead EKG performed by [facility] ECG Report Interpretation ---Atrial fibrillation -irregular conduction -Old anterior infarct. ABNORMAL Electronically signed on 10/02/2024 at 16:06 by Mj Benavides Triptrotting Software Version 8610 10/02/24 1608 Date Mj Benavides MD CC: Dr. Kameron Caruso MD Date Dictated: 10/02/24920 Date Transcribed: 10/02/24920 Tube Man: [place] Signed [facility] Cardiology Visit Reporton Cardiology Visit Report [facility] [address] [place] [address] OFFICE VISIT Date of Service: 10/02/24 MR#: [id number] Acct: [id number] Name: LINDSAY ACUNA Rep #: [id number] : 1945 Provider: Dr. Mj Benavides MD Age/Sex: 78/F Location: [facility] Status: Signed HPI HPI History of Present [...] now she is currently domiciled in a [facility]. Her previous echocardiogram which was performed in [...] d/t W/C bound Intake Visit Reasons: AFIB ([facility]) It Network Engineer Required: No Accompanied by: Significant Other [...] normal, nasal (more content not included)... [facility] Absolute lymphocyte countOrd ered By: Safia Ruelas on 10-01-2024 Lymphocytes Auto (Unsp spec) [#/Vol] 2.45 10*3/uL 0.83-4.51 [facility] Absolute neutrophil countOrd ered By: Safia Griderbonimelanie on 10-01-2024 Neutrophils (Bld) [#/Vol] 6.5 10*3/uL 2.0-7.7 [facility] Anion gap in Serum or Plasma Ordered By: Safia Ruelas on 10-01-2024 Anion gap [Moles/Vol] 12 mmol/L 5- [facility] Automated lymphocyte count a s percentage of total leukocytesOrdered By: Safia Ruelas on 10-01-2024 Lymphocytes/100 WBC Auto (Unsp spec) 23.1 % 19- [facility] BUN/creatinine ratioOrdered By: Safia Ruelas on 10-01-2024 Urea nitrogen/Creatinine [Mass ratio] 24.9 mg/mg High 10- [facility] Basophil percentageOrdered B y: Safia Ruelas on 10-01-2024 Basophils/100 WBC (Bld) 0.5 % 0-[address] [facility] Carbon dioxide, total [Moles /volume] in Central venous bloodOrdered By: Safia Ruelas on 10-01-2024 CO2 [Moles/Vol] 24.4 mmol/L 21.0-32.0 [facility] Chloride assayOrdered By: Balbir Ruelas on 10-01-2024 Chloride [Moles/Vol] 99 mmol/L 98-108 [facility] Eosinophil percentageOrdered By: sherry Ruelas on 10-01-2024 Eosinophils/100 WBC (Bld) 2.0 % 0-5 [facility] Erythrocyte distribution wid th ratioOrdered By: Safia Ruelas on 10-01-2024 Erythrocyte distribution width (RBC) [Ratio] 13.5 % 11.6-14.6 [facility] Erythrocyte distribution wid th standard deviationOrdered By: Safia Ruelas on 10-01-2024 Erythrocyte distribution width (RBC) [Ratio] 46.2 fl High 35.1-43.9 [facility] Glomerular filtration rate ( GFR) estimation/1.73 sq m using serum, plasma, or whole bOrdered By: Safia Ruelas on 10-01-2024 GFR/1.73 sq M.predicted among non-blacks MDRD (S/P/Bld) [Vol rate/Area] 63 mL/min/{1.73_m2} >60 [facility] Comment on above: mL/min/1.73m2 CKD-EP I Creatinine Equation (2020) Hematocrit Auto (Bld) [Volum e fraction]Ordered By: Safia Ruelas on 10-01-2024 Hematocrit (Bld) [Volume fraction] 38.7 % 37-47 [facility] Hemoglobin measurementOrdere d By: Safia Ruelas on 10-01-2024 Hemoglobin (Bld) [Mass/Vol] 12.5 g/dL 12.0-15.0 [facility] Immature granulocytes/100 WB C Auto (Bld)Ordered By: Safia Ruelas on 10-01-2024 Immature granulocytes/100 WBC (Bld) 0.800 % 0.0-0.9 [facility] Comment on above: IG% - Immature Granu locytes (promyelocytes, myelocytes and metamyelocytes) > 1% indicates that a LEFT SHIFT is Present. MCV (mean corpuscular volume ) determinationOrdered By: Safia Ruelas on 10-01-2024 MCV (RBC) [Entitic vol] 93.3 fL 81-[address] [facility] Mean corpuscular hemoglobin (MCH) determinationOrdered By: Safia Ruelas on 10-01-2024 MCH (RBC) [Entitic mass] 30.1 pg 27.0-32.0 [facility] Mean corpuscular hemoglobin concentration (MCHC) determinationOrdered By: Leonidesmount pleasantskye Ruelas on 10-01-2024 MCHC (RBC) [Mass/Vol] 32.3 g/dL 32-36 [facility] Mean platelet volume determi nationOrdered By: Safia Ruelas on 10-01-2024 Platelet mean volume (Bld) [Entitic vol] 11.7 fL 6.2-12.0 [facility] Monocyte percentageOrdered B y: Safia Ruelas on 10-01-2024 Monocytes/100 WBC (Bld) 12.7 % High 0-[address] [facility] Neutrophil percentageOrdered By: Safia Cheoquyen on 10-01-2024 Neutrophils/100 WBC (Bld) 60.9 % 47-70 [facility] Nucleated red blood cell per centageOrdered By: Safia Cheoquyen on 10-01-2024 Nucleated RBC/100 WBC (Bld) [Ratio] 0 % 0-5 [facility] Platelet countOrdered By: Balbir sherry Cheoquyen on 10-01-2024 Platelets (Bld) [#/Vol] 371 10*3/uL 150-450 [facility] Potassium measurement (mass/ volume)Ordered By: Safia Griderbonimelanie on 10-01-2024 Potassium (Unsp spec) [Mass/Vol] 4.2 mmol/L 3.3-5.1 [facility] RBC Auto (Bld) [#/Vol]Ordere d By: Safia Ruelas on 10-01-2024 RBC (Bld) [#/Vol] 4.15 10*6/uL Low 4.2-5.4 [facility] Serum creatinine measurement (mass/volume)Ordered By: Balbirsherry Griderbonimelanie on 10-01-2024 Creatinine [Mass/Vol] 0.93 mg/dL 0.70-1.20 [facility] Serum glucose measurement (m ass/volume)Ordered By: Balbirjean mariedesireesyke Griderbonimelanie on 10-01-2024 Glucose [Mass/Vol] 93 mg/dL 70-99 [facility] Serum or plasma calcium dayna urement (mass/volume)Ordered By: Balbirjean mariejosé antonio Cheobonimelanie on 10-01-2024 Calcium [Mass/Vol] 9.5 mg/dL 7.6-11.0 [facility] Serum or plasma urea nitroge n measurement (mass/volume)Ordered By: Safia Griderbonimelanie on 10-01-2024 Urea nitrogen [Mass/Vol] 23 mg/dL High 4-19 [facility] Sodium levelOrdered By: Leonides josé antonio Jessenia on 10-01-2024 Sodium [Moles/Vol] 135 mmol/L 133-145 [facility] White blood cell (WBC) count Ordered By: Leonidesdesireeskye Ruelas on 10-01-2024 WBC (Bld) [#/Vol] 10.6 10*3/uL 4.4-11.0 [facility] Clostridium difficile detect ion by polymerase chain reactionOrdered By: Safia Ruelas on 09-29-2024 C. difficile DNA CHUCKY+probe Ql (Unsp spec) [facility] Absolute lymphocyte countOrd ered By: Safia Ruelas on 09-24-2024 Lymphocytes Auto (Unsp spec) [#/Vol] 2.72 10*3/uL 0.83-4.51 [facility] Absolute neutrophil countOrd ered By: Safia Griderbonimelanie on 09-24-2024 Neutrophils (Bld) [#/Vol] 6.3 10*3/uL 2.0-7.7 [facility] Anion gap in Serum or Plasma Ordered By: Safia Ruelas on 09-24-2024 Anion gap [Moles/Vol] 12 mmol/L 5-15 [facility] Automated lymphocyte count a s percentage of total leukocytesOrdered By: Safia Ruelas on 09-24-2024 Lymphocytes/100 WBC Auto (Unsp spec) 26.3 % 19-41 [facility] BUN/creatinine ratioOrdered By: Safia Ruelas on 09-24-2024 Urea nitrogen/Creatinine [Mass ratio] 36.4 mg/mg High 10-20 [facility] Basophil percentageOrdered B y: Safia Ruelas on 09-24-2024 Basophils/100 WBC (Bld) 0.7 % 0-1 [facility] Carbon dioxide, total [Moles /volume] in Central venous bloodOrdered By: Safia Ruelas on 09-24-2024 CO2 [Moles/Vol] 24.1 mmol/L 21.0-32.0 [facility] Chloride assayOrdered By: Balbir Ruelas on 09-24-2024 Chloride [Moles/Vol] 100 mmol/L 98-108 [facility] Eosinophil percentageOrdered By: Safia Ruelas on 09-24-2024 Eosinophils/100 WBC (Bld) 2.7 % 0-5 [facility] Erythrocyte distribution wid th ratioOrdered By: Safia Ruelas on 09-24-2024 Erythrocyte distribution width (RBC) [Ratio] 13.6 % 11.6-14.6 [facility] Erythrocyte distribution wid th standard deviationOrdered By: Safia Ruelas on 09-24-2024 Erythrocyte distribution width (RBC) [Ratio] 47.1 fl High 35.1-43.9 [facility] Glomerular filtration rate ( GFR) estimation/1.73 sq m using serum, plasma, or whole bOrdered By: Safia Ruelas on 09-24-2024 GFR/1.73 sq M.predicted among non-blacks MDRD (S/P/Bld) [Vol rate/Area] 62 mL/min/{1.73_m2} >60 [facility] Comment on above: mL/min/1.73m2 CKD-EP I Creatinine Equation (2020) Hematocrit Auto (Bld) [Volum e fraction]Ordered By: Safia Ruelas on 09-24-2024 Hematocrit (Bld) [Volume fraction] 41.2 % 37-47 [facility] Hemoglobin measurementOrdere d By: Saifa Ruelas on 09-24-2024 Hemoglobin (Bld) [Mass/Vol] 13.0 g/dL 12.0-15.0 [facility] Immature granulocytes/100 WB C Auto (Bld)Ordered By: Safia Ruelas on 09-24-2024 Immature granulocytes/100 WBC (Bld) 1.000 % High 0.0-0.9 [facility] Comment on above: IG% - Immature Granu locytes (promyelocytes, myelocytes and metamyelocytes) > 1% indicates that a LEFT SHIFT is Present. MCV (mean corpuscular volume ) determinationOrdered By: Safia Ruelas on 09-24-2024 MCV (RBC) [Entitic vol] 94.3 fL 81-[address] [facility] Mean corpuscular hemoglobin (MCH) determinationOrdered By: Safia Ruelas on 09-24-2024 MCH (RBC) [Entitic mass] 29.7 pg 27.0-32.0 [facility] Mean corpuscular hemoglobin concentration (MCHC) determinationOrdered By: Safia Ruelas on 09-24-2024 MCHC (RBC) [Mass/Vol] 31.6 g/dL Low 32-36 [facility] Mean platelet volume determi nationOrdered By: Safia Ruelas on 09-24-2024 Platelet mean volume (Bld) [Entitic vol] 11.3 fL 6.2-12.0 [facility] Monocyte percentageOrdered B y: Safia Ruelas on 09-24-2024 Monocytes/100 WBC (Bld) 8.9 % 0-[address] [facility] Neutrophil percentageOrdered By: Leonidesmount pleasantskye Ruelas on 09-24-2024 Neutrophils/100 WBC (Bld) 60.4 % 47-70 [facility] Nucleated red blood cell per centageOrdered By: Safia Ruelas on 09-24-2024 Nucleated RBC/100 WBC (Bld) [Ratio] 0 % 0-5 [facility] Platelet countOrdered By: Balbir Ruelas on 09-24-2024 Platelets (Bld) [#/Vol] 441 10*3/uL 150-450 [facility] Potassium measurement (mass/ volume)Ordered By: Safia Ruelas on 09-24-2024 Potassium (Unsp spec) [Mass/Vol] 4.3 mmol/L 3.3-5.1 [facility] RBC Auto (Bld) [#/Vol]Ordere d By: Safia Ruelas on 09-24-2024 RBC (Bld) [#/Vol] 4.37 10*6/uL 4.2-5.4 [facility] Serum creatinine measurement (mass/volume)Ordered By: Safia Ruelas on 09-24-2024 Creatinine [Mass/Vol] 0.93 mg/dL 0.70-1.20 [facility] Serum glucose measurement (m ass/volume)Ordered By: Safia Ruelas on 09-24-2024 Glucose [Mass/Vol] 48 mg/dL Low 70-99 [facility] Serum or plasma calcium dayna urement (mass/volume)Ordered By: Balbirjean mariejosé antonio Cheobonimelanie on 09-24-2024 Calcium [Mass/Vol] 9.5 mg/dL 7.6-11.0 [facility] Serum or plasma urea nitroge n measurement (mass/volume)Ordered By: Safia Ruelas on 09-24-2024 Urea nitrogen [Mass/Vol] 34 mg/dL High 4-19 [facility] Sodium levelOrdered By: Leonides chou Cheobonimelanie on 09-24-2024 Sodium [Moles/Vol] 136 mmol/L 133-145 [facility] White blood cell (WBC) count Ordered By: Safia Ruelas on 09-24-2024 WBC (Bld) [#/Vol] 10.4 10*3/uL 4.4-11.0 [facility] Absolute lymphocyte countOrd ered By: Safia Ruelas on 09-17-2024 Lymphocytes Auto (Unsp spec) [#/Vol] 2.52 10*3/uL 0.83-4.51 [facility] Absolute neutrophil countOrd ered By: Safia Ruelas on 09-17-2024 Neutrophils (Bld) [#/Vol] 5.8 10*3/uL 2.0-7.7 [facility] Anion gap in Serum or Plasma Ordered By: Safia Ruelas on 09-17-2024 Anion gap [Moles/Vol] 12 mmol/L 5-15 [facility] Automated lymphocyte count a s percentage of total leukocytesOrdered By: Safia Ruelas on 09-17-2024 Lymphocytes/100 WBC Auto (Unsp spec) 26.3 % 19-41 [facility] BUN/creatinine ratioOrdered By: Balbirsherry Ruelas on 09-17-2024 Urea nitrogen/Creatinine [Mass ratio] 45.9 mg/mg High 10-20 [facility] Basophil percentageOrdered B y: Safia Ruelas on 09-17-2024 Basophils/100 WBC (Bld) 0.6 % 0-[address] [facility] Calculated very low density lipoprotein (VLDL) cholesterol measurementOrdered By: Safia Ruelas on 09-17-2024 Calculated very low density lipoprotein (VLDL) cholesterol measurement 22 mg/dL 5-40 [facility] Carbon dioxide, total [Moles /volume] in Central venous bloodOrdered By: Safia Ruelas on 09-17-2024 CO2 [Moles/Vol] 24.5 mmol/L 21.0-32.0 [facility] Chloride assayOrdered By: Balbir Ruelas on 09-17-2024 Chloride [Moles/Vol] 98 mmol/L 98-108 [facility] Eosinophil percentageOrdered By: Safia Ruelas on 09-17-2024 Eosinophils/100 WBC (Bld) 3.2 % 0-5 [facility] Erythrocyte distribution wid th ratioOrdered By: jean mariemount pleasantskye Ruelas on 09-17-2024 Erythrocyte distribution width (RBC) [Ratio] 13.4 % 11.6-14.6 [facility] Erythrocyte distribution wid th standard deviationOrdered By: Safia Ruelas on 09-17-2024 Erythrocyte distribution width (RBC) [Ratio] 45.4 fl High 35.1-43.9 [facility] Glomerular filtration rate ( GFR) estimation/1.73 sq m using serum, plasma, or whole bOrdered By: Safia Ruelas on 09-17-2024 GFR/1.73 sq M.predicted among non-blacks MDRD (S/P/Bld) [Vol rate/Area] 69 mL/min/{1.73_m2} >60 [facility] Comment on above: mL/min/1.73m2 CKD-EP I Creatinine Equation (2020) Hematocrit Auto (Bld) [Volum e fraction]Ordered By: Safia Ruelas on 09-17-2024 Hematocrit (Bld) [Volume fraction] 38.8 % 37-47 [facility] Hemoglobin measurementOrdere d By: Safia Ruelas on 09-17-2024 Hemoglobin (Bld) [Mass/Vol] 12.6 g/dL 12.0-15.0 [facility] Immature granulocytes/100 WB C Auto (Bld)Ordered By: Safia Ruelas on 09-17-2024 Immature granulocytes/100 WBC (Bld) 0.700 % 0.0-0.9 [facility] Comment on above: IG% - Immature Granu locytes (promyelocytes, myelocytes and metamyelocytes) > 1% indicates that a LEFT SHIFT is Present. LDL calc ser/plasOrdered By: Safia Ruelas on 09-17-2024 Cholesterol in LDL [Mass/Vol] 120 mg/dL [facility] Comment on above: Cqwaqlctud=021-887 m g/dL & Higher Odxp=938 mg/dL or greater MCV (mean corpuscular volume ) determinationOrdered By: Safia Ruelas on 09-17-2024 MCV (RBC) [Entitic vol] 91.7 fL 81-[address] [facility] Mean corpuscular hemoglobin (MCH) determinationOrdered By: Leonidesmount pleasantskye Ruelas on 09-17-2024 MCH (RBC) [Entitic mass] 29.8 pg 27.0-32.0 [facility] Mean corpuscular hemoglobin concentration (MCHC) determinationOrdered By: Safia Ruelas on 09-17-2024 MCHC (RBC) [Mass/Vol] 32.5 g/dL 32-36 [facility] Mean platelet volume determi nationOrdered By: Safia Ruelas on 09-17-2024 Platelet mean volume (Bld) [Entitic vol] 11.4 fL 6.2-12.0 [facility] Monocyte percentageOrdered B y: Safia Ruelas on 09-17-2024 Monocytes/100 WBC (Bld) 8.5 % 0-[address] [facility] Neutrophil percentageOrdered By: jean mariemount pleasantskye Ruelas on 09-17-2024 Neutrophils/100 WBC (Bld) 60.7 % 47-70 [facility] Nucleated red blood cell per centageOrdered By: Safia Ruelas on 09-17-2024 Nucleated RBC/100 WBC (Bld) [Ratio] 0 % 0-5 [facility] Platelet countOrdered By: Balbir Ruelas on 09-17-2024 Platelets (Bld) [#/Vol] 311 10*3/uL 150-450 [facility] Potassium measurement (mass/ volume)Ordered By: Safia Ruelas on 09-17-2024 Potassium (Unsp spec) [Mass/Vol] 4.1 mmol/L 3.3-5.1 [facility] RBC Auto (Bld) [#/Vol]Ordere d By: Safia Ruelas on 09-17-2024 RBC (Bld) [#/Vol] 4.23 10*6/uL 4.2-5.4 [facility] Screening total cholesterol/ high density lipoprotein (HDL) cholesterol ratioOrdered By: Safia Ruelas on 09-17-2024 Cholesterol.total/Alta sterol in HDL [Mass ratio] 5.38 {ratio} [facility] Serum creatinine measurement (mass/volume)Ordered By: Safia Ruelas on 09-17-2024 Creatinine [Mass/Vol] 0.86 mg/dL 0.70-1.20 [facility] Serum glucose measurement (m ass/volume)Ordered By: Safia Ruelas on 09-17-2024 Glucose [Mass/Vol] 216 mg/dL High 70-99 [facility] Serum or plasma calcium dayna urement (mass/volume)Ordered By: Safia Ruelas on 09-17-2024 Calcium [Mass/Vol] 9.4 mg/dL 7.6-11.0 [facility] Serum or plasma cholesterol in HDL measurement (mass/volume)Ordered By: Safia Ruelas on 09-17-2024 Cholesterol in HDL [Mass/Vol] 33 mg/dL Low >40 [facility] Comment on above: National Cholesterol Education Program (NCEP) guidelines:<40 mg/dL: Low HDL-cholesterol (major risk factor for CHD)>= 60 mg/dL: High HDL-cholesterol (negative risk factor for CHD)HDL-cholesterol is affected by a number of factors, e.g. smoking, exercise, hormones, sex and age. Serum or plasma cholesterol measurement (mass/volume)Ordered By: Safia Ruelas on 09-17-2024 Cholesterol [Mass/Vol] 175 mg/dL <201 [facility] Comment on above: Cholesterol level, D esirable <200 mg/dLBorderline high cholesterol 200-239 mg/dLHigh cholesterol >=240 mg/dLRecommendations of the NCEP Adult Treatment Panel for the following risk-cutoff thresholds for the [place] population. Serum or plasma urea nitroge n measurement (mass/volume)Ordered By: Safia Ruelas on 09-17-2024 Urea nitrogen [Mass/Vol] 39 mg/dL High 4-19 [facility] Sodium levelOrdered By: Leonides jiméneztadmelanie Ruelas on 09-17-2024 Sodium [Moles/Vol] 134 mmol/L 133-145 [facility] TSH DL <= 0.005 mIU/L QnOrde red By: Safia Ruelas on 09-17-2024 TSH Qn 3.500 uIU/mL 0.300-4.200 [facility] Triglycerides measurementOrd ered By: Safia Ruelas on 09-17-2024 Triglyceride [Mass/Vol] 111 mg/dL <[address] [facility] Comment on above: The drugs N-Acetylcy steine and Metamizole may falsely depress this assay. Normal range: <150 mg/dLBorderline High: 150-199 mg/dLHigh: 200-499 mg/dLVery High: >500 mg/dL White blood cell (WBC) count Ordered By: Safia Ruelas on 09-17-2024 WBC (Bld) [#/Vol] 9.6 10*3/uL 4.4-11.0 [facility] Absolute lymphocyte countOrd ered By: Safia Ruelas on 09-10-2024 Lymphocytes Auto (Unsp spec) [#/Vol] 2.11 10*3/uL 0.83-4.51 [facility] Absolute neutrophil countOrd ered By: Safia Ruelas on 09-10-2024 Neutrophils (Bld) [#/Vol] 8.1 10*3/uL High 2.0-7.7 [facility] Anion gap in Serum or Plasma Ordered By: Safia Ruelas on 09-10-2024 Anion gap [Moles/Vol] 13 mmol/L 5-15 [facility] Automated lymphocyte count a s percentage of total leukocytesOrdered By: Safia Ruelas on 09-10-2024 Lymphocytes/100 WBC Auto (Unsp spec) 17.9 % Low 19-41 [facility] BUN/creatinine ratioOrdered By: Safia Ruelas on 09-10-2024 Urea nitrogen/Creatinine [Mass ratio] 29.1 mg/mg High 10-20 [facility] Basophil percentageOrdered B y: Safia Ruelas on 09-10-2024 Basophils/100 WBC (Bld) 0.3 % 0-[address] [facility] Bilirubin, totalOrdered By: Safia Cheobonimelanie on 09-10-2024 Bilirubin [Mass/Vol] 0.55 mg/dL 0.00-1.30 [facility] Carbon dioxide, total [Moles /volume] in Central venous bloodOrdered By: Balbirjean mariedesireeskye Griderbonimelanie on 09-10-2024 CO2 [Moles/Vol] 23.6 mmol/L 21.0-32.0 [facility] Chloride assayOrdered By: Balbir sherry Cheobonimelanie on 09-10-2024 Chloride [Moles/Vol] 97 mmol/L Low 98-108 [facility] Eosinophil percentageOrdered By: Safia Ruelas on 09-10-2024 Eosinophils/100 WBC (Bld) 0.5 % 0-5 [facility] Erythrocyte distribution wid th ratioOrdered By: Balbirjean mariejosé antonio Westonmelanie on 09-10-2024 Erythrocyte distribution width (RBC) [Ratio] 13.4 % 11.6-14.6 [facility] Erythrocyte distribution wid th standard deviationOrdered By: Leonidesdesireeskye Griderbonimelanie on 09-10-2024 Erythrocyte distribution width (RBC) [Ratio] 45.2 fl High 35.1-43.9 [facility] Glomerular filtration rate ( GFR) estimation/1.73 sq m using serum, plasma, or whole bOrdered By: Balbirjean mariedesireeskye Griderbonimelanie on 09-10-2024 GFR/1.73 sq M.predicted among non-blacks MDRD (S/P/Bld) [Vol rate/Area] 59 mL/min/{1.73_m2} Low >60 [facility] Comment on above: mL/min/1.73m2 CKD-EP I Creatinine Equation (2020) Hematocrit Auto (Bld) [Volum e fraction]Ordered By: Safia Ruelas on 09-10-2024 Hematocrit (Bld) [Volume fraction] 41.8 % 37-47 [facility] Hemoglobin measurementOrdere d By: Safia Ruelas on 09-10-2024 Hemoglobin (Bld) [Mass/Vol] 13.4 g/dL 12.0-15.0 [facility] Immature granulocytes/100 WB C Auto (Bld)Ordered By: Safia Ruelas on 09-10-2024 Immature granulocytes/100 WBC (Bld) 0.800 % 0.0-0.9 [facility] Comment on above: IG% - Immature Granu locytes (promyelocytes, myelocytes and metamyelocytes) > 1% indicates that a LEFT SHIFT is Present. Laboratory - Chemistry and C hemistry - challengeOrdered By: Safia Ruelas on 09-10-2024 AST [Catalytic activity/Vol] 21 U/L <32 [facility] MCV (mean corpuscular volume ) determinationOrdered By: Safia Ruelas on 09-10-2024 MCV (RBC) [Entitic vol] 92.5 fL 81-[address] [facility] Mean corpuscular hemoglobin (MCH) determinationOrdered By: Safia Ruelas on 09-10-2024 MCH (RBC) [Entitic mass] 29.6 pg 27.0-32.0 [facility] Mean corpuscular hemoglobin concentration (MCHC) determinationOrdered By: Safia Ruelas on 09-10-2024 MCHC (RBC) [Mass/Vol] 32.1 g/dL 32-36 [facility] Mean platelet volume determi nationOrdered By: Safia Ruelas on 09-10-2024 Platelet mean volume (Bld) [Entitic vol] 12.6 fL High 6.2-12.0 [facility] Monocyte percentageOrdered B y: Safia Ruelas on 09-10-2024 Monocytes/100 WBC (Bld) 12.3 % High 0-[address] [facility] Neutrophil percentageOrdered By: Safia Ruelas on 09-10-2024 Neutrophils/100 WBC (Bld) 68.2 % 47-70 [facility] No Panel InformationOrdered By: Safia Ruelas on 09-10-2024 21 U/L <32 [facility] Nucleated red blood cell per centageOrdered By: Safia Ruelas on 09-10-2024 Nucleated RBC/100 WBC (Bld) [Ratio] 0 % 0-5 [facility] Platelet countOrdered By: Balbir Ruelas on 09-10-2024 Platelets (Bld) [#/Vol] 190 10*3/uL 150-450 [facility] Potassium measurement (mass/ volume)Ordered By: Safia Ruelas on 09-10-2024 Potassium (Unsp spec) [Mass/Vol] 4.3 mmol/L 3.3-5.1 [facility] RBC Auto (Bld) [#/Vol]Ordere d By: Safia Ruelas on 09-10-2024 RBC (Bld) [#/Vol] 4.52 10*6/uL 4.2-5.4 [facility] Serum creatinine measurement (mass/volume)Ordered By: Safia Ruelas on 09-10-2024 Creatinine [Mass/Vol] 0.98 mg/dL 0.70-1.20 [facility] Serum globulin measurementOr dered By: Safia Ruelas on 09-10-2024 Globulin (S) [Mass/Vol] 3.3 g/dL 2.2-4.2 [facility] Serum glucose measurement (m ass/volume)Ordered By: Safia Ruelas on 09-10-2024 Glucose [Mass/Vol] 181 mg/dL High 70-99 [facility] Serum or plasma alanine raymundo otransferase (ALT) measurementOrdered By: Safia Ruelas 09-10-2024 ALT [Catalytic activity/Vol] 26 U/L <35 [facility] Serum or plasma albumin dayna urement (mass/volume)Ordered By: Safia Ruelas 09-10-2024 Albumin [Mass/Vol] 3.4 g/dL 3.4-4.8 [facility] Serum or plasma albumin/glob ulin mass ratioOrdered By: Balbirsherry Ruelas on 09-10-2024 Albumin/Globulin [Mass ratio] 1.0 {ratio} 0.9-2.4 [facility] Serum or plasma alkaline hannah sphatase measurementOrdered By: Balbirsherry Griderbonimelanie on 09-10-2024 ALP [Catalytic activity/Vol] 114 U/L High 35-104 [facility] Serum or plasma calcium dayna urement (mass/volume)Ordered By: Safia Ruelas on 09-10-2024 Calcium [Mass/Vol] 9.3 mg/dL 7.6-11.0 [facility] Serum or plasma urea nitroge n measurement (mass/volume)Ordered By: Balbirsherry Ruelas on 09-10-2024 Urea nitrogen [Mass/Vol] 29 mg/dL High 4-19 [facility] Sodium levelOrdered By: Leonides josé antonio Jessenia on 09-10-2024 Sodium [Moles/Vol] 133 mmol/L 133-145 [facility] Total proteinOrdered By: Augustomelanie ervin Jessenia on 09-10-2024 Protein [Mass/Vol] 6.7 g/dL 5.9-8.4 [facility] White blood cell (WBC) count Ordered By: Balbirjean mariedesireeskye Ruelas on 09-10-2024 WBC (Bld) [#/Vol] 11.8 10*3/uL High 4.4-11.0 [facility] LABORATORYOrdered By: Abigail Smith on 09-09-2024 Glucose [Mass/Vol] 212 mg/dL High 82 - 115 mg/dL [employer] Work Phone: Glucose [Mass/Vol] 226 mg/dL High 82 - 115 mg/dL [employer] Work Phone: LABORATORYOrdered By: Zoial Zarco on 09-08-2024 Glucose [Mass/Vol] 149 mg/dL High 82 - 115 mg/dL [employer] Work Phone: LABORATORYOrdered By: Rob Palmer on 09-08-2024 Blood Glucose Testing Reason Routine (09/08/24 6:16 PM) [employer] [facility] Work Phone: Blood Glucose Testing Reason Routine (09/08/24 11:58 AM) [place] [employer] Work Phone: LABORATORYOrdered By: Rob Palmer on 09-07-2024 Blood Glucose Testing Reason Routine (09/07/24 4:46 PM) [place] [employer] Work Phone: .Auto Diffon 09-03-2024 Basophil, Absolute 0.1 10 3/mcL Normal 0.0-0.3 [facility] Comment on above: Performed By: #### A DIFF, CBC, ANEU, GFR, BMP #### [address] [address] Basophils/100 WBC (Bld) 1.0 % Normal 0.0-2.5 [facility] Comment on above: Performed By: #### A DIFF, CBC, ANEU, GFR, BMP #### [address] [address] Eosinophil, Absolute 0.2 10 3/mcL Normal 0.0-0.7 [facility] Comment on above: Performed By: #### A DIFF, CBC, ANEU, GFR, BMP #### [address] [address] Eosinophils/100 WBC (Bld) 3.2 % Normal 0.0-6.0 [facility] Comment on above: Performed By: #### A DIFF, CBC, ANEU, GFR, BMP #### [address] [address] Lymphocyte, Absolute 2.0 10 3/mcL Normal 0.9-4.3 [facility] Comment on above: Performed By: #### A DIFF, CBC, ANEU, GFR, BMP #### [address] [address] Lymphocytes/100 WBC (Bld) 26.6 % Normal 20.0-40.0 [facility] Comment on above: Performed By: #### A DIFF, CBC, ANEU, GFR, BMP #### [address] [address] Monocyte, Absolute 0.7 10 3/mcL Normal 0.1-1.4 [facility] Comment on above: Performed By: #### A DIFF, CBC, ANEU, GFR, BMP #### [address] [address] Monocytes/100 WBC (Bld) 9.7 % Normal 2.0-13.0 [facility] Comment on above: Performed By: #### A DIFF, CBC, ANEU, GFR, BMP #### [address] [address] Neutrophils/100 WBC (Bld) 59.5 % Normal 50.0-75.0 [facility] Comment on above: Performed By: #### A DIFF, CBC, ANEU, GFR, BMP #### [address] [address] .GFRon 09-03-2024 Estimated Glomerular Filtration Rate 57 ml/min/1.73sqm Normal [facility] Comment on above: Result [...] A DIFF, CBC, ANEU, GFR, BMP #### [address] [address] .NEUABSon 09-03-2024 Neutrophil, Absolute 4.5 10 3/mcL Normal 2.3-8.1 [facility] Comment on above: Performed By: #### A DIFF, CBC, ANEU, GFR, BMP #### [address] [address] B12on 09-03-2024 Cobalamin (Vitamin B12) [Mass/Vol] 834 pg/mL Normal 211-911 [facility] Comment on above: Performed By: #### A DIFF, CBC, ANEU, GFR, BMP #### [place] [address] CBCon 09-03-2024 Erythrocyte distribution width (RBC) [Ratio] 14.7 % Normal 11.5-15.5 [facility] Comment on above: Performed By: #### A DIFF, CBC, ANEU, GFR, BMP #### [place] [address] Hematocrit (Bld) [Volume fraction] 39.7 % Normal 34.0-46.0 [facility] Comment on above: Performed By: #### A DIFF, CBC, ANEU, GFR, BMP #### [place] [address] Hgb 13.2 G/dL Normal 12.0-16.0 [facility] Comment on above: Performed By: #### A DIFF, CBC, ANEU, GFR, BMP #### [place] [address] MCH (RBC) [Entitic mass] 30.6 pg Normal 27.0-33.0 [facility] Comment on above: Performed By: #### A DIFF, CBC, ANEU, GFR, BMP #### [place] [address] MCHC 33.3 G/dL Normal 32.0-36.0 [facility] Comment on above: Performed By: #### A DIFF, CBC, ANEU, GFR, BMP #### [place] [address] MCV (RBC) [Entitic vol] 91.9 fL Normal 80.0-99.0 [facility] Comment on above: Performed By: #### A DIFF, CBC, ANEU, GFR, BMP #### [place] [id number] Platelet 228 10 3/mcL Normal 150-450 [facility] Comment on above: Performed By: #### A DIFF, CBC, ANEU, GFR, BMP #### [place] [address] Platelet mean volume (Bld) [Entitic vol] 10.1 fL Normal 6.6-10.5 [facility] Comment on above: Performed By: #### A DIFF, CBC, ANEU, GFR, BMP #### [place] [address] RBC 4.32 10 6/mcL Normal 4.10-5.30 [facility] Comment on above: Performed By: #### A DIFF, CBC, ANEU, GFR, BMP #### [place] [address] WBC 7.6 10 3/mcL Normal 4.5-10.8 [facility] Comment on above: Performed By: #### A DIFF, CBC, ANEU, GFR, BMP #### [place] [address] CMPon 09-03-2024 Albumin Level 3.0 G/dL Low 3.2-4.8 [facility] Comment on above: Performed By: #### A DIFF, CBC, ANEU, GFR, BMP #### [place] [address] Albumin/Globulin [Mass ratio] 0.9 {ratio} Normal 0.9-1.6 [facility] Comment on above: Performed By: #### A DIFF, CBC, ANEU, GFR, BMP #### [place] [address] ALP [Catalytic activity/Vol] 115 U/L Normal 38-126 [facility] Comment on above: Performed By: #### A DIFF, CBC, ANEU, GFR, BMP #### [place] [address] ALT [Catalytic activity/Vol] 37 U/L Normal 10-49 [facility] Comment on above: Performed By: #### A DIFF, CBC, ANEU, GFR, BMP #### [place] [address] AST [Catalytic activity/Vol] 31 U/L Normal 8-34 [facility] Comment on above: Performed By: #### A DIFF, CBC, ANEU, GFR, BMP #### [address] [address] Bili Total 0.50 mg/dL Normal 0.20-1.20 [facility] Comment on above: Result Comment: Use of this assay is not recommended for patients undergoing treatment with eltrombopag due to the potential for falsely elevated results. Performed By: #### A DIFF, CBC, ANEU, GFR, BMP #### [place] [address] BUN/Creatinine Ratio 29.7 ratio High 10.0-22.0 [facility] Comment on above: Performed By: #### A DIFF, CBC, ANEU, GFR, BMP #### [place] [id number] Calcium [Mass/Vol] 9.6 mg/dL Normal 8.7-10.4 [facility] Comment on above: Performed By: #### A DIFF, CBC, ANEU, GFR, BMP #### [place] [address] Chloride [Moles/Vol] 101 mmol/L Normal 98-110 [facility] Comment on above: Performed By: #### A DIFF, CBC, ANEU, GFR, BMP #### [place] [address] CO2 [Moles/Vol] 27 mmol/L Normal 22-32 [facility] Comment on above: Performed By: #### A DIFF, CBC, ANEU, GFR, BMP #### [place] [address] Creatinine [Mass/Vol] 1.01 mg/dL Normal 0.50-1.20 [facility] Comment on above: Result Comment: Test ing performed on [address] analyzer using enzymatic creatinine methodology. Performed By: #### A DIFF, CBC, ANEU, GFR, BMP #### [place] [id number] Electrolyte Balance 10.0 mEq/L Normal 4.0-15.0 [facility] Comment on above: Performed By: #### A DIFF, CBC, ANEU, GFR, BMP #### [place] [id number] Globulin 3.4 G/dL Normal 1.5-3.8 [facility] Comment on above: Performed By: #### A DIFF, CBC, ANEU, GFR, BMP #### [address] [address] Glucose [Mass/Vol] 187 mg/dL High 82-115 [facility] Comment on above: Performed By: #### A DIFF, CBC, ANEU, GFR, BMP #### [address] [address] Potassium [Moles/Vol] 4.6 mmol/L Normal 3.5-5.0 [facility] Comment on above: Performed By: #### A DIFF, CBC, ANEU, GFR, BMP #### [address] [address] Sodium [Moles/Vol] 138 mmol/L Normal 136-145 [facility] Comment on above: Performed By: #### A DIFF, CBC, ANEU, GFR, BMP #### [address] [address] Total Protein 6.4 G/dL Normal 5.7-8.2 [facility] Comment on above: Performed By: #### A DIFF, CBC, ANEU, GFR, BMP #### [address] [address] Urea nitrogen [Mass/Vol] 30.0 mg/dL High 8.0-22.0 [facility] Comment on above: Performed By: #### A DIFF, CBC, ANEU, GFR, BMP #### [address] [address] LABORATORYOrdered By: Ann Carrillo on 09-03-2024 Glucose [Mass/Vol] 270 mg/dL [facility] Work Phone: LABORATORYOrdered By: SYSTEM SYSTEM [...] above: Interpretive Data: T esting performed on [address] analyzer using enzymatic creatinine methodology. Electrolyte Balance [...] 09-03-2024 TSH 3.920 mIU/mL Normal 0.550-4.780 [facility] Comment on above: Performed By: #### A DIFF, CBC, ANEU, GFR, BMP #### [place] [address] CT HEAD OR BRAIN W/O CONTRAS Ton [...] Date: 09/02/2024 3:10:44 PM Ordering Provider: SILVINO PEARL [facility] [place] 08-30-2024 RANDEE Telephone (FAMPWS) LINDSAY ACUNA ([id number]) 1945 F Date Time Provider Department 08/30/24 KAMERON CARUSO During your visit today, we recorded the following information about you: Jaiden Paulino, RN 08/30/2024 9:11 AM Signed Marya- [facility] reports patient was in [facility] with dx: stroke, and transferred to [facility]. Pt will be discharged from [facility] on 09/07/24 to home with [facility] SN PT OT [facility] AND [facility]. Asking if pcp agreeable to follow for C. Please phone Marya with verbal: [phone] Mj Glover APRN.GARRETT 08/30/2024 9:19 AM Signed Please let know that Dr. Caruso's team will follow orders. Okay to proceed. Mj Glover APRN.Fouzia Reynoso LPN 08/30/2024 10:09 AM Signed Marya with [facility] notified. Allergies As of Date: 08/30/2024 Noted Allergy Reaction BENZOCAINE 07/08/2005 2 - Rash COCAINE 05/28/2008 Comments: Inverted T PERFUMES 07/08/2005 12 - Shortness of Breath Comments: coughes and chokes SULFA (SULFONAMIDE ANTIBIOTICS) 07/08/2005 5 - Intolerance Date Reviewed: 06/26/2024 Reviewed by: Bret Arambula LPN - Fully Assessed Reason for Visit: [facility] requesting verbal agree to follow [...] Status:Closed by FOUZIA MILLER on 08/30/24 Normal [facility] .Auto Diffon 08-26-2024 Basophil, Absolute 0.1 10 3/mcL Normal 0.0-0.3 [facility] Comment on above: Performed By: #### A DIFF, CBC, ANEU, GFR, BMP #### [address] [address] Basophils/100 WBC (Bld) 1.0 % Normal 0.0-2.5 [facility] Comment on above: Performed By: #### A DIFF, CBC, ANEU, GFR, BMP #### [address] [address] Eosinophil, Absolute 0.3 10 3/mcL Normal 0.0-0.7 [facility] Comment on above: Performed By: #### A DIFF, CBC, ANEU, GFR, BMP #### [address] [address] Eosinophils/100 WBC (Bld) 4.2 % Normal 0.0-6.0 [facility] Comment on above: Performed By: #### A DIFF, CBC, ANEU, GFR, BMP #### [address] [address] Lymphocyte, Absolute 2.2 10 3/mcL Normal 0.9-4.3 [facility] Comment on above: Performed By: #### A DIFF, CBC, ANEU, GFR, BMP #### [address] [address] Lymphocytes/100 WBC (Bld) 26.3 % Normal 20.0-40.0 [facility] Comment on above: Performed By: #### A DIFF, CBC, ANEU, GFR, BMP #### [address] [address] Monocyte, Absolute 0.9 10 3/mcL Normal 0.1-1.4 [facility] Comment on above: Performed By: #### A DIFF, CBC, ANEU, GFR, BMP #### [address] [address] Monocytes/100 WBC (Bld) 11.4 % Normal 2.0-13.0 [facility] Comment on above: Performed By: #### A DIFF, CBC, ANEU, GFR, BMP #### [address] [address] Neutrophils/100 WBC (Bld) 57.1 % Normal 50.0-75.0 [facility] Comment on above: Performed By: #### A DIFF, CBC, ANEU, GFR, BMP #### [address] [address] .GFRon 08-26-2024 Estimated Glomerular Filtration Rate 59 ml/min/1.73sqm Normal [facility] Comment on above: Result [...] A DIFF, CBC, ANEU, GFR, BMP #### [address] [address] .NEUABSon 08-26-2024 Neutrophil, Absolute 4.7 10 3/mcL Normal 2.3-8.1 [facility] Comment on above: Performed By: #### A DIFF, CBC, ANEU, GFR, BMP #### [address] [address] BMPon 08-26-2024 BUN/Creatinine Ratio 35.1 ratio High 10.0-22.0 [facility] Comment on above: Performed By: #### A DIFF, CBC, ANEU, GFR, BMP #### [address] [address] Calcium [Mass/Vol] 9.8 mg/dL Normal 8.7-10.4 [facility] Comment on above: Performed By: #### A DIFF, CBC, ANEU, GFR, BMP #### [address] [address] Chloride [Moles/Vol] 98 mmol/L Normal 98-110 [facility] Comment on above: Performed By: #### A DIFF, CBC, ANEU, GFR, BMP #### [address] [address] CO2 [Moles/Vol] 25 mmol/L Normal 22-32 [facility] Comment on above: Performed By: #### A DIFF, CBC, ANEU, GFR, BMP #### [address] [address] Creatinine [Mass/Vol] 0.97 mg/dL Normal 0.50-1.20 [facility] Comment on above: Result Comment: Test ing performed on [address] analyzer using enzymatic creatinine methodology. Performed By: #### A DIFF, CBC, ANEU, GFR, BMP #### [address] [address] Electrolyte Balance 12.0 mEq/L Normal 4.0-15.0 [facility] Comment on above: Performed By: #### A DIFF, CBC, ANEU, GFR, BMP #### [address] [address] Glucose [Mass/Vol] 160 mg/dL High 82-115 [facility] Comment on above: Performed By: #### A DIFF, CBC, ANEU, GFR, BMP #### [address] [address] Potassium [Moles/Vol] 4.7 mmol/L Normal 3.5-5.0 [facility] Comment on above: Result Comment: Spec imen slightly hemolyzed. Performed By: #### A DIFF, CBC, ANEU, GFR, BMP #### [address] [address] Sodium [Moles/Vol] 135 mmol/L Low 136-145 [facility] Comment on above: Performed By: #### A DIFF, CBC, ANEU, GFR, BMP #### [place] [address] Urea nitrogen [Mass/Vol] 34.0 mg/dL High 8.0-22.0 [facility] Comment on above: Performed By: #### A DIFF, CBC, ANEU, GFR, BMP #### [place] [address] CBCon 08-26-2024 Erythrocyte distribution width (RBC) [Ratio] 14.0 % Normal 11.5-15.5 [facility] Comment on above: Performed By: #### A DIFF, CBC, ANEU, GFR, BMP #### [place] [address] Hematocrit (Bld) [Volume fraction] 41.0 % Normal 34.0-46.0 [facility] Comment on above: Performed By: #### A DIFF, CBC, ANEU, GFR, BMP #### [place] [address] Hgb 13.4 G/dL Normal 12.0-16.0 [facility] Comment on above: Performed By: #### A DIFF, CBC, ANEU, GFR, BMP #### [place] [address] MCH (RBC) [Entitic mass] 30.0 pg Normal 27.0-33.0 [facility] Comment on above: Performed By: #### A DIFF, CBC, ANEU, GFR, BMP #### [place] [address] MCHC 32.7 G/dL Normal 32.0-36.0 [facility] Comment on above: Performed By: #### A DIFF, CBC, ANEU, GFR, BMP #### [place] [address] MCV (RBC) [Entitic vol] 91.9 fL Normal 80.0-99.0 [facility] Comment on above: Performed By: #### A DIFF, CBC, ANEU, GFR, BMP #### [address] [address] Platelet 297 10 3/mcL Normal 150-450 [facility] Comment on above: Performed By: #### A DIFF, CBC, ANEU, GFR, BMP #### [facility] [address] [place] [address] Platelet mean volume (Bld) [Entitic vol] 11.0 fL High 6.6-10.5 [facility] Comment on above: Performed By: #### A DIFF, CBC, ANEU, GFR, BMP #### [place] [id number] [place] [address] RBC 4.46 10 6/mcL Normal 4.10-5.30 [facility] Comment on above: Performed By: #### A DIFF, CBC, ANEU, GFR, BMP #### [place] [id number] [place] [address] WBC 8.3 10 3/mcL Normal 4.5-10.8 [facility] Comment on above: Performed By: #### A DIFF, CBC, ANEU, GFR, BMP #### [address] [address] LABORATORYOrdered By: SYSTEM SYSTEM on 08-26-2024 Basophils [...] above: Interpretive Data: T esting performed on [address] analyzer using enzymatic creatinine methodology. Electrolyte Balance [...] [facility] AND WRIST 6 VIEWS [...] Sign Date: 08/25/2024 2:27:26 PM Ordering Provider: [facility] XR HUMERUS MINIMUM 2 VIEWS Veronica [...] Sign Date: 08/25/2024 2:26:11 PM Ordering Provider: [facility] XR SHOULDER MINIMUM 2 VIEWS [...] Sign Date: 08/25/2024 2:26:45 PM Ordering Provider: [facility] LABORATORYOrdered By: Kala lux on 08-23-2024 Glucose [Mass/Vol] 278 mg/dL [facility] Work Phone: LABORATORYOrdered By: Kala lux on 08-22-2024 Glucose [Mass/Vol] 320 mg/dL [facility]go [employer] Work Phone: A1Con 08-21-2024 Glucose [Mass/Vol] 194 mg/dL Normal [facility] Comment on above: Result Comment: Nancy mated Average Glucose calculated by equation ((28.7xA1C)-46.7) Estimated average glucose (eAG) is a calculated value from Hemoglobin A1C and is patient account representative of the average blood glucose level in the last 2-3 month period. Normal range: less than 114 mg/dL Performed By: #### A 1C #### [address] [address] HbA1c (Bld) [Mass fraction] 8.4 % High 4.0-6.0 [facility] Comment on above: Performed By: #### A 1C #### [address] [address] LABORATORYOrdered By: SYSTEM SYSTEM on 08-21-2024 Glucose [Mass/Vol] 194 mg/dL Invalid Interpretation Code Auto Chem SS Comment on above: Interpretive Data: E stimated average glucose (eAG) is a calculated value from Hemoglobin A1C and is patient account representative of the average blood glucose level in the last 2-3 month period. Normal range: less than 114 mg/dL HbA1c (Bld) [Mass fraction] 8.4 % High 4.0 - 6.0 % Auto Chem SS .Auto Diffon 08-20-2024 Basophil, Absolute 0.1 10 3/mcL Normal 0.0-0.3 [facility] Comment on above: Performed By: #### B MP, ADIFF, CBC, GFR, ANEU #### [address] [address] Basophils/100 WBC (Bld) 1.1 % Normal 0.0-2.5 [facility] Comment on above: Performed By: #### B MP, ADIFF, CBC, GFR, ANEU #### [address] [address] Eosinophil, Absolute 0.3 10 3/mcL Normal 0.0-0.7 [facility] Comment on above: Performed By: #### B MP, ADIFF, CBC, GFR, ANEU #### [address] [address] Eosinophils/100 WBC (Bld) 3.6 % Normal 0.0-6.0 [facility] Comment on above: Performed By: #### B MP, ADIFF, CBC, GFR, ANEU #### [address] [address] Lymphocyte, Absolute 1.7 10 3/mcL Normal 0.9-4.3 [facility] Comment on above: Performed By: #### B MP, ADIFF, CBC, GFR, ANEU #### [address] [address] Lymphocytes/100 WBC (Bld) 20.8 % Normal 20.0-40.0 [facility] Comment on above: Performed By: #### B MP, ADIFF, CBC, GFR, ANEU #### [address] [address] Monocyte, Absolute 0.9 10 3/mcL Normal 0.1-1.4 [facility] Comment on above: Performed By: #### B MP, ADIFF, CBC, GFR, ANEU #### [address] [address] Monocytes/100 WBC (Bld) 11.4 % Normal 2.0-13.0 [facility] Comment on above: Performed By: #### B MP, ADIFF, CBC, GFR, ANEU #### [address] [address] Neutrophils/100 WBC (Bld) 63.1 % Normal 50.0-75.0 [facility] Comment on above: Performed By: #### B MP, ADIFF, CBC, GFR, ANEU #### [address] [address] .GFRon 08-20-2024 Estimated Glomerular Filtration Rate 55 ml/min/1.73sqm Normal [facility] Comment on above: Result [...] A DIFF, CBC, ANEU, GFR, BMP #### [address] [address] .NEUABSon 08-20-2024 Neutrophil, Absolute 5.1 10 3/mcL Normal 2.3-8.1 [facility] Comment on above: Performed By: #### B MP, ADIFF, CBC, GFR, ANEU #### [address] [address] BMPon 08-20-2024 BUN/Creatinine Ratio 29.8 ratio High 10.0-22.0 [facility] Comment on above: Performed By: #### B MP, ADIFF, CBC, GFR, ANEU #### [address] [address] Calcium [Mass/Vol] 9.8 mg/dL Normal 8.7-10.4 [facility] Comment on above: Performed By: #### B MP, ADIFF, CBC, GFR, ANEU #### [address] [address] Chloride [Moles/Vol] 95 mmol/L Low 98-110 [facility] Comment on above: Performed By: #### B MP, ADIFF, CBC, GFR, ANEU #### [address] [address] CO2 [Moles/Vol] 34 mmol/L High 22-32 [facility] Comment on above: Performed By: #### B MP, ADIFF, CBC, GFR, ANEU #### [address] [address] Creatinine [Mass/Vol] 1.04 mg/dL Normal 0.50-1.20 [facility] Comment on above: Result Comment: Test ing performed on [employer] [address] analyzer using enzymatic creatinine methodology. Performed By: #### B MP, ADIFF, CBC, GFR, ANEU #### [place] [id number] Electrolyte Balance 5.0 mEq/L Normal 4.0-15.0 [facility] Comment on above: Performed By: #### B MP, ADIFF, CBC, GFR, ANEU #### [address] [address] Glucose [Mass/Vol] 244 mg/dL High 82-115 [facility] Comment on above: Performed By: #### B MP, ADIFF, CBC, GFR, ANEU #### [place] [id number] Potassium [Moles/Vol] 4.8 mmol/L Normal 3.5-5.0 [facility] Comment on above: Result Comment: Spec imen slightly hemolyzed. Performed By: #### B MP, ADIFF, CBC, GFR, ANEU #### [place] [id number] Sodium [Moles/Vol] 134 mmol/L Low 136-145 [facility] Comment on above: Performed By: #### B MP, ADIFF, CBC, GFR, ANEU #### [place] [id number] Urea nitrogen [Mass/Vol] 31.0 mg/dL High 8.0-22.0 [facility] Comment on above: Performed By: #### B MP, ADIFF, CBC, GFR, ANEU #### [address] [address] CBCon 08-20-2024 Erythrocyte distribution width (RBC) [Ratio] 14.0 % Normal 11.5-15.5 [facility] Comment on above: Performed By: #### B MP, ADIFF, CBC, GFR, ANEU #### [place] [id number] Hematocrit (Bld) [Volume fraction] 41.9 % Normal 34.0-46.0 [facility] Comment on above: Performed By: #### B MP, ADIFF, CBC, GFR, ANEU #### [place] [address] Hgb 13.6 G/dL Normal 12.0-16.0 [facility] Comment on above: Performed By: #### B MP, ADIFF, CBC, GFR, ANEU #### [place] [address] MCH (RBC) [Entitic mass] 29.7 pg Normal 27.0-33.0 [facility] Comment on above: Performed By: #### B MP, ADIFF, CBC, GFR, ANEU #### [place] [address] MCHC 32.4 G/dL Normal 32.0-36.0 [facility] Comment on above: Performed By: #### B MP, ADIFF, CBC, GFR, ANEU #### [place] [address] MCV (RBC) [Entitic vol] 91.5 fL Normal 80.0-99.0 [facility] Comment on above: Performed By: #### B MP, ADIFF, CBC, GFR, ANEU #### [place] [address] Platelet 301 10 3/mcL Normal 150-450 [facility] Comment on above: Performed By: #### B MP, ADIFF, CBC, GFR, ANEU #### [place] [address] Platelet mean volume (Bld) [Entitic vol] 11.0 fL High 6.6-10.5 [facility] Comment on above: Performed By: #### B MP, ADIFF, CBC, GFR, ANEU #### [place] [address] RBC 4.58 10 6/mcL Normal 4.10-5.30 [facility] Comment on above: Performed By: #### B MP, ADIFF, CBC, GFR, ANEU #### [place] [address] WBC 8.1 10 3/mcL Normal 4.5-10.8 [facility] Comment on above: Performed By: #### B MP, ADIFF, CBC, GFR, ANEU #### [place] [id number] [place] [address] LABORATORYOrdered By: SYSTEM SYSTEM on 08-20-2024 Basophils [...] above: Interpretive Data: T esting performed on [address] analyzer using enzymatic creatinine methodology. Electrolyte Balance [...] 91.5 fL Normal 80.0 - 99.0 fL Workflow [...] Sign Date: 08/18/2024 3:14:15 PM Ordering Provider: ANNDO Anderson [facility] .Auto Diffon 08-16-2024 Basophil, Absolute 0.1 10 3/mcL Normal 0.0-0.3 [facility] Comment on above: Performed By: #### A DIFF, CBC, ANEU, GFR, BMP #### [address] [address] Basophils/100 WBC (Bld) 0.7 % Normal 0.0-2.5 [facility] Comment on above: Performed By: #### A DIFF, CBC, ANEU, GFR, BMP #### [address] [address] Eosinophil, Absolute 0.3 10 3/mcL Normal 0.0-0.7 [facility] Comment on above: Performed By: #### A DIFF, CBC, ANEU, GFR, BMP #### [address] [address] Eosinophils/100 WBC (Bld) 2.1 % Normal 0.0-6.0 [facility] Comment on above: Performed By: #### A DIFF, CBC, ANEU, GFR, BMP #### [address] [address] Lymphocyte, Absolute 1.9 10 3/mcL Normal 0.9-4.3 [facility] Comment on above: Performed By: #### A DIFF, CBC, ANEU, GFR, BMP #### [address] [address] Lymphocytes/100 WBC (Bld) 14.8 % Low 20.0-40.0 [facility] Comment on above: Performed By: #### A DIFF, CBC, ANEU, GFR, BMP #### [address] [address] Monocyte, Absolute 1.2 10 3/mcL Normal 0.1-1.4 [facility] Comment on above: Performed By: #### A DIFF, CBC, ANEU, GFR, BMP #### [address] [address] Monocytes/100 WBC (Bld) 9.8 % Normal 2.0-13.0 [facility] Comment on above: Performed By: #### A DIFF, CBC, ANEU, GFR, BMP #### [address] [address] Neutrophils/100 WBC (Bld) 72.6 % Normal 50.0-75.0 [facility] Comment on above: Performed By: #### A DIFF, CBC, ANEU, GFR, BMP #### [address] [address] .GFRon 08-16-2024 Estimated Glomerular Filtration Rate 58 ml/min/1.73sqm Normal [facility] Comment on above: Result [...] A DIFF, CBC, ANEU, GFR, BMP #### [address] [address] .NEUABSon 08-16-2024 Neutrophil, Absolute 9.2 10 3/mcL High 2.3-8.1 [facility] Comment on above: Performed By: #### A DIFF, CBC, ANEU, GFR, BMP #### [place] [address] BMPon 08-16-2024 BUN/Creatinine Ratio 34.3 ratio High 10.0-22.0 [facility] Comment on above: Performed By: #### A DIFF, CBC, ANEU, GFR, BMP #### [place] [address] Calcium [Mass/Vol] 9.0 mg/dL Normal 8.7-10.4 [facility] Comment on above: Performed By: #### A DIFF, CBC, ANEU, GFR, BMP #### [place] [address] Chloride [Moles/Vol] 100 mmol/L Normal 98-110 [facility] Comment on above: Performed By: #### A DIFF, CBC, ANEU, GFR, BMP #### [place] [address] CO2 [Moles/Vol] 30 mmol/L Normal 22-32 [facility] Comment on above: Performed By: #### A DIFF, CBC, ANEU, GFR, BMP #### [place] [address] Creatinine [Mass/Vol] 0.99 mg/dL Normal 0.50-1.20 [facility] Comment on above: Result Comment: Test ing performed on [address] analyzer using enzymatic creatinine methodology. Performed By: #### A DIFF, CBC, ANEU, GFR, BMP #### [place] [id number] Electrolyte Balance 5.0 mEq/L Normal 4.0-15.0 [facility] Comment on above: Performed By: #### A DIFF, CBC, ANEU, GFR, BMP #### [address] [address] Glucose [Mass/Vol] 259 mg/dL High 82-115 [facility] Comment on above: Performed By: #### A DIFF, CBC, ANEU, GFR, BMP #### [address] [address] Potassium [Moles/Vol] 5.0 mmol/L Normal 3.5-5.0 [facility] Comment on above: Performed By: #### A DIFF, CBC, ANEU, GFR, BMP #### [address] [address] Sodium [Moles/Vol] 135 mmol/L Low 136-145 [facility] Comment on above: Performed By: #### A DIFF, CBC, ANEU, GFR, BMP #### [place] [id number] Urea nitrogen [Mass/Vol] 34.0 mg/dL High 8.0-22.0 [facility] Comment on above: Performed By: #### A DIFF, CBC, ANEU, GFR, BMP #### [place] [id number] CBCon 08-16-2024 Erythrocyte distribution width (RBC) [Ratio] 13.7 % Normal 11.5-15.5 [facility] Comment on above: Performed By: #### A DIFF, CBC, ANEU, GFR, BMP #### [place] [id number] Hematocrit (Bld) [Volume fraction] 43.3 % Normal 34.0-46.0 [facility] Comment on above: Performed By: #### A DIFF, CBC, ANEU, GFR, BMP #### [place] [id number] Hgb 13.9 G/dL Normal 12.0-16.0 [facility] Comment on above: Performed By: #### A DIFF, CBC, ANEU, GFR, BMP #### [place] [id number] MCH (RBC) [Entitic mass] 30.0 pg Normal 27.0-33.0 [facility] Comment on above: Performed By: #### A DIFF, CBC, ANEU, GFR, BMP #### [place] [address] MCHC 32.1 G/dL Normal 32.0-36.0 [facility] Comment on above: Performed By: #### A DIFF, CBC, ANEU, GFR, BMP #### [place] [address] MCV (RBC) [Entitic vol] 93.6 fL Normal 80.0-99.0 [facility] Comment on above: Performed By: #### A DIFF, CBC, ANEU, GFR, BMP #### [place] [address] Platelet 230 10 3/mcL Normal 150-450 [facility] Comment on above: Performed By: #### A DIFF, CBC, ANEU, GFR, BMP #### [place] [address] Platelet mean volume (Bld) [Entitic vol] 10.7 fL High 6.6-10.5 [facility] Comment on above: Performed By: #### A DIFF, CBC, ANEU, GFR, BMP #### [place] [address] RBC 4.63 10 6/mcL Normal 4.10-5.30 [facility] Comment on above: Performed By: #### A DIFF, CBC, ANEU, GFR, BMP #### [place] [address] WBC 12.7 10 3/mcL High 4.5-10.8 [facility] Comment on above: Performed By: #### A DIFF, CBC, ANEU, GFR, BMP #### [place] [address] LABORATORYOrdered By: Marily Panda on 08-16-2024 Blood Glucose Interventions Administered agent to decrease blood sugar (08/16/24 12:23 PM) [employer] Phone: Blood Glucose Interventions Retest (08/16/24 10:15 AM) [employer] Work Phone: Bacteria identified Cx Nom ( Bld)on 08-15-2024 Bacteria identified Cx Nom (Unsp spec) NO GROWTH DAY 5 OF 5 [facility] CARDIAC RHYTHMon 08-15-2024 [facility] CBC,PLATELETSon 08-15-2024 Erythrocyte distribution width (RBC) [Ratio] 13.4 % 10.8 - 14.9 % [facility] Hematocrit (Bld) [Volume fraction] 43.8 % 34.9 - 44.3 % [facility] Hemoglobin (Bld) [Mass/Vol] 13.5 g/dL 11.4 - 15.2 g/dL [facility] Interpretation and review of laboratory results Abnormal [facility] MCH (RBC) [Entitic mass] 28.9 pg 25.9 - 33.9 pg [facility] MCHC (RBC) [Mass/Vol] 30.8 g/dL Low 31.4 - 35.9 g/dL [facility] MCV (RBC) [Entitic vol] 93.8 fL 79.6 - 97.7 fL [facility] Platelet mean volume (Bld) [Entitic vol] 12 fL 8.5 - 12.2 fL [facility] Platelets (Bld) [#/Vol] 252 10*3/uL 150 - 393 K/uL [facility] RBC (Bld) [#/Vol] 4.67 10*6/uL [facility] WBC (Bld) [#/Vol] 11.94 10*3/uL High 3.99 - 11.19 K/uL [facility] Hematocrit (Bld) [Volume fraction] 43.8 % Normal 34.9-44.3 [facility] Comment on above: Performed By: #### X M #### [facility] (DEFAULT) [address] [address] Hemoglobin (Bld) [Mass/Vol] 13.5 g/dL Normal 11.4-15.2 [facility] Comment on above: Performed By: #### X M #### [facility] (DEFAULT) [address] [place] [address] MCV (RBC) [Entitic vol] 93.8 fL Normal 79.6-97.7 [facility] Comment on above: Performed By: #### X M #### [facility] (DEFAULT) [address] [address] Mean Cell Hgb 28.9 pg Normal 25.9-33.9 [facility] Comment on above: Performed By: #### X M #### [facility] (DEFAULT) [address] [address] Mean Cell Hgb Conc 30.8 g/dL Low 31.4-35.9 [facility] Comment on above: Performed By: #### X M #### [facility] (DEFAULT) [address] [address] Platelet mean volume (Bld) [Entitic vol] 12.0 fL Normal 8.5-12.2 [facility] Comment on above: Performed By: #### X M #### [facility] (DEFAULT) [address] [address] Platelets (Bld) [#/Vol] 252 10*3/uL Normal 150-393 [facility] Comment on above: Performed By: #### X M #### [facility] (DEFAULT) [address] [place] [address] RBC (Bld) [#/Vol] 4.67 10*6/uL Normal 3.91-5.04 [facility] Comment on above: Performed By: #### X M #### [facility] (DEFAULT) [address] [address] RBC Distribution 13.4 % Normal 10.8-14.9 [facility] Comment on above: Performed By: #### X M #### [facility] (DEFAULT) [address] [place] [address] WBC (Bld) [#/Vol] 11.94 10*3/uL High 3.99-11.19 [facility] Comment on above: Performed By: #### X M #### [facility] (DEFAULT) [address] [place] [address] CHEM 7 (LYTES,BUN,CREA,GLUC) on 08-15-2024 Anion gap [Moles/Vol] 16 mmol/L 7 - 17 mmol/L [facility] Chloride [Moles/Vol] 99 mmol/L 98 - 10 8 mmol/L [facility] CO2 [Moles/Vol] 25 mmol/L 21 - 31 mmol/L [facility] Creatinine [Mass/Vol] 1.27 mg/dL High 0.50 - 1.20 mg/dL [facility] eGFR, CKD-EPI, Female 43 Low - PINF [facility] Glucose [Mass/Vol] 214 mg/dL High 70 - 179 mg/dL [facility] Interpretation and review of laboratory results Abnormal [facility] Osmolality Calc [Osmolality] 306 High [facility] Potassium [Moles/Vol] 4.8 mmol/L 3.5 - 5.0 mmol/L [facility] Sodium [Moles/Vol] 135 mmol/L 135 - 145 mmol/L [facility] Urea nitrogen [Mass/Vol] 51 mg/dL High 7 - 25 mg/dL [facility] Urea nitrogen/Creatinine [Mass ratio] 40 mg/mg [facility] Anion gap [Moles/Vol] 16 mmol/L Normal 7-17 [facility] Comment on above: Performed By: #### [facility] #### [facility] (DEFAULT) [address] [place] [address] Chloride [Moles/Vol] 99 mmol/L Normal 98-108 [facility] Comment on above: Performed By: #### H EMOGC #### [facility] (DEFAULT) [address] [place] [address] CO2 [Moles/Vol] 25 mmol/L Normal 21-31 [facility] Comment on above: Performed By: #### H EMOGC #### [facility] (DEFAULT) [address] [place] [address] Creatinine [Mass/Vol] 1.27 mg/dL High 0.50-1.20 [facility] Comment on above: Performed By: #### H EMOGC #### [facility] (DEFAULT) [address] [place] [address] GFR/1.73 sq M.predicted among non-blacks MDRD (S/P/Bld) [Vol rate/Area] 43 mL/min/{1.73_m2} Low >=60 [facility] Comment on above: Result Comment: Repo rted eGFR is based on the CKD-EPI 2020 equation using creatinine, age, and sex. Performed By: #### H EMO #### [place] [facility] (DEFAULT) [address] [place] [address] Glucose [Mass/Vol] 214 mg/dL High Nonfastin -179 mg/dL; Fastin-99 [facility] Comment on above: Performed By: #### H EMO #### [facility] (DEFAULT) [address] [place] [address] Osmolality [Osmolality] 306 mosm/kg High 278-305 [facility] Comment on above: Performed By: #### H EMOGC #### [facility] (DEFAULT) [address] [place] [address] Potassium [Moles/Vol] 4.8 mmol/L Normal 3.5-5.0 [facility] Comment on above: Performed By: #### H EMOGC #### [facility] (DEFAULT) [address] [place] [address] Sodium [Moles/Vol] 135 mmol/L Normal 135-145 [facility] Comment on above: Performed By: #### H EMOGC #### [facility] (DEFAULT) [address] [place] [address] Urea nitrogen [Mass/Vol] 51 mg/dL High 7-25 [facility] Comment on above: Performed By: #### [facility] #### [facility] (DEFAULT) [address] [place] [address] Urea nitrogen/Creatinine [Mass ratio] 40 mg/mg Normal [facility] Comment on above: Performed By: #### [facility] #### [facility] (DEFAULT) [address] [place] [address] GLUCOSE POCon 08-15-2024 Glucose [Mass/Vol] 190 mg/dL High 70 - 179 mg/dL [facility] Interpretation and review of laboratory results Abnormal [facility] POC Sample Type [facility] Glucose [Mass/Vol] 146 mg/dL 70 - 179 mg/dL [facility] POC Sample Type [facility] Glucose [Mass/Vol] 215 mg/dL High 70 - 179 mg/dL [facility] Interpretation and review of laboratory results Abnormal [facility] POC Sample Type [facility] MAGNESIUMon 08-15-2024 Interpretation and review of laboratory results Normal [facility] Magnesium [Mass/Vol] 1.6 mg/dL 1.6 - 2 .6 mg/dL [facility] Magnesium [Mass/Vol] 1.6 mg/dL Normal 1.6-2.6 [facility] Comment on above: Performed By: #### [facility] #### [facility] (DEFAULT) [address] [place] [address] No Panel Informationon 08-15 [facility] CBC,PLATELETSon 08-14-2024 Erythrocyte distribution width (RBC) [Ratio] 13.4 % 10.8 - 14.9 % [facility] Hematocrit (Bld) [Volume fraction] 47.9 % High 34.9 - 44.3 % [facility] Hemoglobin (Bld) [Mass/Vol] 14.3 g/dL 11.4 - 15.2 g/dL [facility] Interpretation and review of laboratory results Abnormal [facility] MCH (RBC) [Entitic mass] 29.3 pg 25.9 - 33.9 pg [facility] MCHC (RBC) [Mass/Vol] 29.9 g/dL Low 31.4 - 35.9 g/dL [facility] MCV (RBC) [Entitic vol] 98.2 fL High 79.6 - 97.7 fL [facility] Platelet mean volume (Bld) [Entitic vol] 11.3 fL 8.5 - 12.2 fL [facility] Platelets (Bld) [#/Vol] 229 10*3/uL 150 - 393 K/uL [facility] RBC (Bld) [#/Vol] 4.88 10*6/uL [facility] WBC (Bld) [#/Vol] 12.14 10*3/uL High 3.99 - 11.19 K/uL [facility] Hematocrit (Bld) [Volume fraction] 47.9 % High 34.9-44.3 [facility] Comment on above: Performed By: #### X M #### [facility] (DEFAULT) [address] [address] Hemoglobin (Bld) [Mass/Vol] 14.3 g/dL Normal 11.4-15.2 [facility] Comment on above: Performed By: #### X M #### [facility] (DEFAULT) [address] [address] MCV (RBC) [Entitic vol] 98.2 fL High 79.6-97.7 [facility] Comment on above: Performed By: #### X M #### [facility] (DEFAULT) [address] [place] [address] Mean Cell Hgb 29.3 pg Normal 25.9-33.9 [facility] Comment on above: Performed By: #### X M #### [facility] (DEFAULT) [address] [place] [address] Mean Cell Hgb Conc 29.9 g/dL Low 31.4-35.9 [facility] Comment on above: Performed By: #### X M #### [facility] (DEFAULT) [address] [place] [address] Platelet mean volume (Bld) [Entitic vol] 11.3 fL Normal 8.5-12.2 [facility] Comment on above: Performed By: #### X M #### [facility] (DEFAULT) [address] [place] [address] Platelets (Bld) [#/Vol] 229 10*3/uL Normal 150-393 [facility] Comment on above: Performed By: #### X M #### [facility] (DEFAULT) [address] [place] [address] RBC (Bld) [#/Vol] 4.88 10*6/uL Normal 3.91-5.04 [facility] Comment on above: Performed By: #### X M #### [facility] (DEFAULT) [address] [place] [address] RBC Distribution 13.4 % Normal 10.8-14.9 [facility] Comment on above: Performed By: #### X M #### [facility] (DEFAULT) [address] [place] [address] WBC (Bld) [#/Vol] 12.14 10*3/uL High 3.99-11.19 [facility] Comment on above: Performed By: #### X M #### [facility] (DEFAULT) [address] [place] [address] CHEM 7 (LYTES,BUN,CREA,GLUC) on 08-14-2024 Anion gap [Moles/Vol] 16 mmol/L 7 - 17 mmol/L [facility] Chloride [Moles/Vol] 101 mmol/L 98 - 10 8 mmol/L [facility] CO2 [Moles/Vol] 23 mmol/L 21 - 31 mmol/L [facility] Creatinine [Mass/Vol] 1.15 mg/dL 0.50 - 1.20 mg/dL [facility] eGFR, CKD-EPI, Female 48 Low - PINF [facility] Glucose [Mass/Vol] 208 mg/dL High 70 - 179 mg/dL [facility] Interpretation and review of laboratory results Abnormal [facility] Osmolality Calc [Osmolality] 304 [facility] Potassium [Moles/Vol] 4.7 mmol/L 3.5 - 5.0 mmol/L [facility] Sodium [Moles/Vol] 135 mmol/L 135 - 145 mmol/L [facility] Urea nitrogen [Mass/Vol] 47 mg/dL High 7 - 25 mg/dL [facility] Urea nitrogen/Creatinine [Mass ratio] 41 mg/mg [facility] Anion gap [Moles/Vol] 16 mmol/L Normal 7-17 [facility] Comment on above: Performed By: #### B LDCULT #### [facility] (DEFAULT) [address] [place] [address] Chloride [Moles/Vol] 101 mmol/L Normal 98-108 [facility] Comment on above: Performed By: #### B LDCULT #### [facility] (DEFAULT) [address] [place] [address] CO2 [Moles/Vol] 23 mmol/L Normal 21-31 [facility] Comment on above: Performed By: #### B LDCULT #### [facility] (DEFAULT) [address] [place] [address] Creatinine [Mass/Vol] 1.15 mg/dL Normal 0.50-1.20 [facility] Comment on above: Performed By: #### B LDCULT #### [facility] (DEFAULT) [address] [place] [address] GFR/1.73 sq M.predicted among non-blacks MDRD (S/P/Bld) [Vol rate/Area] 48 mL/min/{1.73_m2} Low >=60 [facility] Comment on above: Result Comment: Repo rted eGFR is based on the CKD-EPI 2020 equation using creatinine, age, and sex. Performed By: #### B LDCULT #### [facility] (DEFAULT) [address] [place] [address] Glucose [Mass/Vol] 208 mg/dL High Nonfastin -179 mg/dL; Fastin-99 [facility] Comment on above: Performed By: #### B LDCULT #### [place] [facility] (DEFAULT) [address] [place] [address] Osmolality [Osmolality] 304 mosm/kg Normal 278-305 [facility] Comment on above: Performed By: #### B LDCULT #### [facility] (DEFAULT) [address] [place] [address] Potassium [Moles/Vol] 4.7 mmol/L Normal 3.5-5.0 [facility] Comment on above: Performed By: #### B LDCULT #### [facility] (DEFAULT) [address] [place] [address] Sodium [Moles/Vol] 135 mmol/L Normal 135-145 [facility] Comment on above: Performed By: #### B LDCULT #### [facility] (DEFAULT) [address] [place] [address] 62344 Urea nitrogen [Mass/Vol] 47 mg/dL High 7-25 [facility] Comment on above: Performed By: #### B LDCULT #### U [facility] (DEFAULT) [address] [place] [address] 86815 Urea nitrogen/Creatinine [Mass ratio] 41 mg/mg Normal [facility] Comment on above: Performed By: #### B LDCULT #### [facility] (DEFAULT) [address] [place] [address] 13154 GLUCOSE POCon 08-14-2024 Glucose [Mass/Vol] 204 mg/dL High 70 - 179 mg/dL [facility] Interpretation and review of laboratory results Abnormal [facility] POC Sample Type CAPBL [facility] Glucose [Mass/Vol] 264 mg/dL High 70 - 179 mg/dL [facility] Interpretation and review of laboratory results Abnormal [facility] POC Sample Type CAPBL [facility] Glucose [Mass/Vol] 189 mg/dL High 70 - 179 mg/dL [facility] Interpretation and review of laboratory results Abnormal [facility] POC Sample Type CAPBL [facility] MAGNESIUMon 08-14-2024 Interpretation and review of laboratory results Normal [facility] Magnesium [Mass/Vol] 1.6 mg/dL 1.6 - 2 .6 mg/dL [facility] Magnesium [Mass/Vol] 1.6 mg/dL Normal 1.6-2.6 [facility] Comment on above: Performed By: #### B LDCULT #### [facility] (DEFAULT) [address] [id number] No Panel Informationon 08-14 [facility] CBC,PLATELETSon 08-13-2024 Erythrocyte distribution width (RBC) [Ratio] 13.4 % 10.8 - 14.9 % [facility] Hematocrit (Bld) [Volume fraction] 45.7 % High 34.9 - 44.3 % [facility] Hemoglobin (Bld) [Mass/Vol] 14.3 g/dL 11.4 - 15.2 g/dL [facility] Interpretation and review of laboratory results Abnormal [facility] MCH (RBC) [Entitic mass] 29.5 pg 25.9 - 33.9 pg [facility] MCHC (RBC) [Mass/Vol] 31.3 g/dL Low 31.4 - 35.9 g/dL [facility] MCV (RBC) [Entitic vol] 94.2 fL 79.6 - 97.7 fL [facility] Platelet mean volume (Bld) [Entitic vol] 11.7 fL 8.5 - 12.2 fL [facility] Platelets (Bld) [#/Vol] 245 10*3/uL 150 - 393 K/uL [facility] RBC (Bld) [#/Vol] 4.85 10*6/uL [facility] WBC (Bld) [#/Vol] 12.02 10*3/uL High 3.99 - 11.19 K/uL [facility] Hematocrit (Bld) [Volume fraction] 45.7 % High 34.9-44.3 [facility] Comment on above: Performed By: #### [place] [facility] [place] #### [facility] (DEFAULT) [address] [address] Hemoglobin (Bld) [Mass/Vol] 14.3 g/dL Normal 11.4-15.2 [facility] Comment on above: Performed By: #### H EMOGC #### [facility] (DEFAULT) [address] [place] [address] 93483 MCV (RBC) [Entitic vol] 94.2 fL Normal 79.6-97.7 O [facility] Comment on above: Performed By: #### H EMOGC #### [facility] (DEFAULT) [address] [place] [address] 45618 Mean Cell Hgb 29.5 pg Normal 25.9-33.9 [facility] Comment on above: Performed By: #### H EMOGC #### [facility] (DEFAULT) [address] [place] [address] 35983 Mean Cell Hgb Conc 31.3 g/dL Low 31.4-35.9 [facility] Comment on above: Performed By: #### H EMO #### [facility] (DEFAULT) [address] [place] [address] 77783 Platelet mean volume (Bld) [Entitic vol] 11.7 fL Normal 8.5-12.2 [facility] Comment on above: Performed By: #### H EMO #### [facility] (DEFAULT) [address] [place] [address] 81820 Platelets (Bld) [#/Vol] 245 10*3/uL Normal 150-393 [facility] Comment on above: Performed By: #### H EMO #### [facility] (DEFAULT) [address] [place] [address] 58068 RBC (Bld) [#/Vol] 4.85 10*6/uL Normal 3.91-5.04 [facility] Comment on above: Performed By: #### H EMO #### [facility] (DEFAULT) [address] [place] [address] 13894 RBC Distribution 13.4 % Normal 10.8-14.9 [facility] Comment on above: Performed By: #### H EMO #### [facility] (DEFAULT) [address] [place] [address] 23874 WBC (Bld) [#/Vol] 12.02 10*3/uL High 3.99-11.19 [facility] Comment on above: Performed By: #### H EMO #### [facility] (DEFAULT) [address] [place] [address] 25041 CHEM 7 (LYTES,BUN,CREA,GLUC) on 08-13-2024 Anion gap [Moles/Vol] 15 mmol/L 7 - 17 mmol/L [facility] Chloride [Moles/Vol] 104 mmol/L 98 - 10 8 mmol/L [facility] CO2 [Moles/Vol] 23 mmol/L 21 - 31 mmol/L [facility] Creatinine [Mass/Vol] 1.18 mg/dL 0.50 - 1.20 mg/dL [facility] eGFR, CKD-EPI, Female 47 Low - PINF [facility] Glucose [Mass/Vol] 225 mg/dL High 70 - 179 mg/dL [facility] Interpretation and review of laboratory results Abnormal [facility] Osmolality Calc [Osmolality] 311 High [facility] Potassium [Moles/Vol] 4.6 mmol/L 3.5 - 5.0 mmol/L [facility] Sodium [Moles/Vol] 137 mmol/L 135 - 145 mmol/L [facility] Urea nitrogen [Mass/Vol] 55 mg/dL High 7 - 25 mg/dL [facility] Urea nitrogen/Creatinine [Mass ratio] 47 mg/mg [facility] Anion gap [Moles/Vol] 15 mmol/L Normal 7-17 [facility] Comment on above: Performed By: #### [facility] [place] #### [facility] (DEFAULT) [address] [address] Chloride [Moles/Vol] 104 mmol/L Normal 98-108 [facility] Comment on above: Performed By: #### [facility] [place] #### [facility] (DEFAULT) [address] [address] CO2 [Moles/Vol] 23 mmol/L Normal 21-31 [facility] Comment on above: Performed By: #### [facility] [place] #### [facility] (DEFAULT) [address] [address] Creatinine [Mass/Vol] 1.18 mg/dL Normal 0.50-1.20 [facility] Comment on above: Performed By: #### [facility] [place] #### [facility] (DEFAULT) [address] [address] GFR/1.73 sq M.predicted among non-blacks MDRD (S/P/Bld) [Vol rate/Area] 47 mL/min/{1.73_m2} Low >=60 [facility] Comment on above: Result Comment: Repo rted eGFR is based on the CKD-EPI 2020 equation using creatinine, age, and sex. Performed By: #### H EMO #### U [facility] (DEFAULT) [address] [place] [address] 42278 Glucose [Mass/Vol] 225 mg/dL High Nonfastin -179 mg/dL; Fastin-99 [facility] Comment on above: Performed By: #### H EMOGC #### U [facility] (DEFAULT) [address] [place] [address] 78964 Osmolality [Osmolality] 311 mosm/kg High 278-305 [facility] Comment on above: Performed By: #### H EMO #### U [facility] (DEFAULT) [address] [place] [address] 07817 Potassium [Moles/Vol] 4.6 mmol/L Normal 3.5-5.0 [facility] Comment on above: Performed By: #### H EMO #### [facility] (DEFAULT) [address] [place] [address] 95134 Sodium [Moles/Vol] 137 mmol/L Normal 135-145 [facility] Comment on above: Performed By: #### H EMO #### [facility] (DEFAULT) [address] [place] [address] 44955 Urea nitrogen [Mass/Vol] 55 mg/dL High 7-25 [facility] Comment on above: Performed By: #### H EMO #### U [facility] (DEFAULT) [address] [place] [address] 29035 Urea nitrogen/Creatinine [Mass ratio] 47 mg/mg Normal [facility] Comment on above: Performed By: #### H EMOGC #### [facility] (DEFAULT) [address] [place] [address] 41770 GLUCOSE POCon 08-13-2024 Glucose [Mass/Vol] 195 mg/dL High 70 - 179 mg/dL [facility] Interpretation and review of laboratory results Abnormal [facility] POC Sample Type [facility] Glucose [Mass/Vol] 198 mg/dL High 70 - 179 mg/dL [facility] Interpretation and review of laboratory results Abnormal [facility]OC [facility] Glucose [Mass/Vol] 158 mg/dL 70 - 179 mg/dL [facility] POC Sample Type [facility] Glucose [Mass/Vol] 211 mg/dL High 70 - 179 mg/dL [facility] Interpretation and review of laboratory results Abnormal [facility] POC Sample Type [facility] Glucose [Mass/Vol] 240 mg/dL High 70 - 179 mg/dL [facility] Interpretation and review of laboratory results Abnormal [facility] POC Sample Type CAPBL [facility] MAGNESIUMon 08-13-2024 Interpretation and review of laboratory results Normal [facility] Magnesium [Mass/Vol] 1.8 mg/dL 1.6 - 2 .6 mg/dL [facility] Magnesium [Mass/Vol] 1.8 mg/dL Normal 1.6-2.6 [facility] Comment on above: Performed By: #### [facility] [place] [place] #### [facility] (DEFAULT) [address] [place] [address] No Panel Informationon 08-13 [facility] CBC,PLATELETSon 08-12-2024 Erythrocyte distribution width (RBC) [Ratio] 13.6 % 10.8 - 14.9 % [facility] Hematocrit (Bld) [Volume fraction] 45.1 % High 34.9 - 44.3 % [facility] Hemoglobin (Bld) [Mass/Vol] 14.3 g/dL 11.4 - 15.2 g/dL [facility] Interpretation and review of laboratory results Abnormal [facility] MCH (RBC) [Entitic mass] 29.7 pg 25.9 - 33.9 pg [facility] MCHC (RBC) [Mass/Vol] 31.7 g/dL 31.4 - 35.9 g/dL [facility] MCV (RBC) [Entitic vol] 93.6 fL 79.6 - 97.7 fL [facility] Platelet mean volume (Bld) [Entitic vol] 11.4 fL 8.5 - 12.2 fL [facility] Platelets (Bld) [#/Vol] 241 10*3/uL 150 - 393 K/uL [facility] RBC (Bld) [#/Vol] 4.82 10*6/uL [facility] WBC (Bld) [#/Vol] 14.32 10*3/uL High 3.99 - 11.19 K/uL [facility] Hematocrit (Bld) [Volume fraction] 45.1 % High 34.9-44.3 [facility] Comment on above: Performed By: #### [facility] [place] #### [facility] (DEFAULT) [address] [address] Hemoglobin (Bld) [Mass/Vol] 14.3 g/dL Normal 11.4-15.2 [facility] Comment on above: Performed By: #### [facility] #### [facility] (DEFAULT) [address] [address] MCV (RBC) [Entitic vol] 93.6 fL Normal 79.6-97.7 O [facility] Comment on above: Performed By: #### [facility] [place] [place] #### [facility] (DEFAULT) [address] [address] Mean Cell Hgb 29.7 pg Normal 25.9-33.9 [facility] Comment on above: Performed By: #### [facility] [place] #### [facility] (DEFAULT) [address] [place] [address] 10184 Mean Cell Hgb Conc 31.7 g/dL Normal 31.4-35.9 [facility] Comment on above: Performed By: #### H EMOGC #### U [facility] (DEFAULT) [address] [place] [address] 44701 Platelet mean volume (Bld) [Entitic vol] 11.4 fL Normal 8.5-12.2 [facility] Comment on above: Performed By: #### H EMOGC #### [facility] (DEFAULT) [address] [place] [address] 62692 Platelets (Bld) [#/Vol] 241 10*3/uL Normal 150-393 [facility] Comment on above: Performed By: #### H EMOGC #### [facility] (DEFAULT) [address] [place] [address] 79789 RBC (Bld) [#/Vol] 4.82 10*6/uL Normal 3.91-5.04 [facility] Comment on above: Performed By: #### H EMOGC #### [facility] (DEFAULT) [address] [place] [address] 55801 RBC Distribution 13.6 % Normal 10.8-14.9 [facility] Comment on above: Performed By: #### H EMOGC #### [facility] (DEFAULT) [address] [place] [address] 94088 WBC (Bld) [#/Vol] 14.32 10*3/uL High 3.99-11.19 [facility] Comment on above: Performed By: #### H EMOGC #### [facility] (DEFAULT) [address] [address] CHEM 7 (LYTES,BUN,CREA,GLUC) on 08-12-2024 Anion gap [Moles/Vol] 15 mmol/L 7 - 17 mmol/L [facility] Chloride [Moles/Vol] 104 mmol/L 98 - 10 8 mmol/L [facility] CO2 [Moles/Vol] 27 mmol/L 21 - 31 mmol/L [facility] Creatinine [Mass/Vol] 1.36 mg/dL High 0.50 - 1.20 mg/dL [facility] eGFR, CKD-EPI, Female 40 Low - PINF [facility] Glucose [Mass/Vol] 126 mg/dL 70 - 179 mg/dL [facility] Interpretation and review of laboratory results Abnormal [facility] Osmolality Calc [Osmolality] 313 High [facility] Potassium [Moles/Vol] 4.5 mmol/L 3.5 - 5.0 mmol/L [facility] Sodium [Moles/Vol] 141 mmol/L 135 - 145 mmol/L [facility] Urea nitrogen [Mass/Vol] 56 mg/dL High 7 - 25 mg/dL [facility] Urea nitrogen/Creatinine [Mass ratio] 41 mg/mg [facility] Anion gap [Moles/Vol] 15 mmol/L Normal 7-17 [facility] Comment on above: Performed By: #### T YPEC #### [facility] (DEFAULT) [address] [place] [address]956 Chloride [Moles/Vol] 104 mmol/L Normal 98-108 [facility] Comment on above: Performed By: #### T YPEC #### [facility] (DEFAULT) [address] [place] [address] 17683 CO2 [Moles/Vol] 27 mmol/L Normal 21-31 [facility] Comment on above: Performed By: #### T YPEC #### [facility] (DEFAULT) [address] [place] [address] Creatinine [Mass/Vol] 1.36 mg/dL High 0.50-1.20 [facility] Comment on above: Performed By: #### T YPEC #### [facility] (DEFAULT) [address] [place] [address] 22979 GFR/1.73 sq M.predicted among non-blacks MDRD (S/P/Bld) [Vol rate/Area] 40 mL/min/{1.73_m2} Low >=60 [facility] Comment on above: Result Comment: Repo rted eGFR is based on the CKD-EPI 2020 equation using creatinine, age, and sex. Performed By: #### T YPEC #### U [facility] (DEFAULT) [address] [place] [address]137 Glucose [Mass/Vol] 126 mg/dL Normal Nonfastin -179 mg/dL; Fastin-99 [facility] Comment on above: Performed By: #### T YPEC #### [facility] (DEFAULT) [address] [place] [address] 7[address]79 Osmolality [Osmolality] 313 mosm/kg High 278-305 [facility] Comment on above: Performed By: #### T YPEC #### [facility] (DEFAULT) [address] [place] [address] 11582 Potassium [Moles/Vol] 4.5 mmol/L Normal 3.5-5.0 [facility] Comment on above: Performed By: #### T YPEC #### [facility] (DEFAULT) [address] [place] [address] 02583 Sodium [Moles/Vol] 141 mmol/L Normal 135-145 [facility] Comment on above: Performed By: #### T YPEC #### U [facility] (DEFAULT) [address] [place] [address] 68999 Urea nitrogen [Mass/Vol] 56 mg/dL High 7-25 [facility] Comment on above: Performed By: #### T YPEC #### [facility] (DEFAULT) [address] [place] [address] 16031 Urea nitrogen/Creatinine [Mass ratio] 41 mg/mg Normal [facility] Comment on above: Performed By: #### T YPEC #### [facility] (DEFAULT) [address] [place] [address] 81005 GLUCOSE POCon 08-12-2024 Glucose [Mass/Vol] 231 mg/dL High 70 - 179 mg/dL [facility] Interpretation and review of laboratory results Abnormal [facility] POC Sample Type CAPBL [facility] Glucose [Mass/Vol] 208 mg/dL High 70 - 179 mg/dL [facility] Interpretation and review of laboratory results Abnormal [facility] POC Sample Type CAPBL [facility] Glucose [Mass/Vol] 160 mg/dL 70 - 179 mg/dL [facility] POC Sample Type CAPBL [facility] Glucose [Mass/Vol] 107 mg/dL 70 - 179 mg/dL [facility] POC Sample Type CAPBL [facility] MAGNESIUMon 08-12-2024 Interpretation and review of laboratory results Normal [facility] Magnesium [Mass/Vol] 2.2 mg/dL 1.6 - 2 .6 mg/dL [facility] Magnesium [Mass/Vol] 2.2 mg/dL Normal 1.6-2.6 [facility] Comment on above: Performed By: #### T YPEC #### [facility] (DEFAULT) [address] [place] [address] No Panel Informationon 08-12 [facility] SURG PATH REQUESTOrdered By: Renae Glez on 08-12-2024 Case Report [facility] Clinical History [id number] NVx nuxLpMMXvrXLjG9NzbnafZY ygMM4jIP3grXndvFUrcPEnJ SNrCaTsq9zui689mLIil0xk AHDQtslcoQc5xPorL81cp2Y 3OrjkA2mqNMFrZBsgOJFbFX kdqPFwBOa8ZNAjsUDxncJeI kPcJQYjyNBhmIR5WPXyJF7g okvzBLkdIMgsPBLtffB4RLH edXDlF9ZpOCIoRO1ufhjrBU E4FMxwHIFxBAO3MfMrYDKok 2Yvqhe9PqMmuWm0n5onSTPs XZXllLgbs3ukPKW1HBOlzYC aJ6znvO4mWGPdFZ9mwdqyz7 kfDXsmPIwnDOFkkDL8dsW3R CDuaCQeK8YuhR5zOKGdOZBg gdKtvKiyfJ2jTiFeKKczLfH lNr2QMZlDLgFtLVJjb6KsJI HtCTMKqHUumv3fiIV5MMKJg 22cRaQaDJYeeEKnpMLAwUI8 h1T9IhHjPo3ooELmbJBgeFY ejWZ8u3V8JNIeq8RuNHNaZq xwYXJ9 [facility] For Immediate Release to Patient's MyChart? Yes Yes [facility] Gross Description g0vdtTCzRLRom7xuVXPv bGF uZzEwMzNcZnRuYmpcdWMxIH tccnRmMVxlcGljMTExMDVcY H8brJrwwOh8sKulFZChlqR0 xZSmMCbql7pgCQA2h6ymmrz zSAGnKShmKt1cqNUxxZinKd AxJCAcVEo6gI02QPIpzJ9ab OHvYTeaqvEfDZDeU8MgGV1b LSiwrOKjCTO6bUnyAZUwvar pHvR6OPhpDZPzlvgzGNu6SL obPEOlvNQ6MYAzkKIiA4FkT GQfJS9csux8YCV9VDaeZHTa EjI3HZSccEQqRZWkpFxsHAw vj268BMT6ErSdUYXevrCjlY ciuC9yXuHxSJFYzSUja9UqP 9ptJV3ddVUgquXmBWx3UJVp gY0uz85tZFLnw7Jlcuf8TMl kTyHcTYMqH30yxXKlzgIdPK dpdGggdGhlIHBhdGllbnQnc uQmJR0sGPYiJUByP0Eln8Ar n83kfwOoGcIlLwDhbIPoPIA gpeqmNgUaJNkgBjVlNzg7AO IgVGhlIHNwZWNpbWVuIGlzI QWjr1nhfbL4KFBxThzcp5Hi sDYyOMHiufVkgKWoNY4nMBG jsaXgh1ZpBI6aODJvqiTlMn KeO82muaFhUE4dRKHoxi7xl Q9xMDGqCyMafDhmc4SsAGCr ly7xHPNvFaP2xDT6ioTvVvZ mX37jgL2nO3DsZVXns6AgRU lxMS5mfQ9mUhLjCOLuWZDee TViVQQpbzKOICZiVWOqTJ0h iHt7HCinYthHOKgkHgYkVRG 8GMRbud02FZU9UiQhn0I4WB EhKmDjCKInFJ4mbFypGQAsI R7dZHNpD0iddZ7pnni2TqHm DBNgNkN3MZRiskJ5Ktq7CLQ cXTdpf4bap8TlCAJiOCu7vE hpCdMsDLPsr8ppowUrVuCsG EDyUEAjVRBnvJNgG960p2ys u1odcdUsaPX4YCLmDRU3QOo upoKvgwJ2RQjlxIKgCiB2TA uowuFpSMkfpuTgvfNmAvy0T HMuT210HKU9jMlpf6kwRWJ6 EIFzVPTyXxOzYt6xsYTrZ09 1VIEuCZXZRWMdoXd5HCIafj OxceNekCLEy513E760c3scK GFoapUfrPzLthyua8ojZ852 XHBhcGVydzEyMjQwXHBhcGV ngPF5FDMzJL5jnwmsFClwGS tcFQUrdvA0DJMosEZpZ7GhS ZMnGX9wdxdcIQP4RMwvIOCp NCM0HvKuYBJrq3Zlmrc1RyV ueu3dxe80VXQ9n8DcgMvrHD P8WSB4ZbIyQi5haSPoCERvG D1jZxNcxITrMXUcnk47iKxv LRhwgqZpgX6dMcNsGNRjuGA nQLAiVB0gwGHcPKDsiE8ans xjXHBnYnJkcmhlYWRccGdic qLaOu7pcOezLIL8HDocS8uj hY8lXtV7SKfkO5tzeT6uQWu 5ITqxtQI4GOVeaP0vDY0psb irw2zhCYkiNYolXLFznhL1v lO2FCChwAUzL7NrqE8lYKJi TT6kzgllg2xbHDK3IQthTIF aPKE3KpIfICObh6Yadrt5Yl Ygr6FegLAkGZnjX59jn528H IUvyrHfZ7rofYHkvzgsqMSg igscBMdlvaU1AXYzAUKtLAn uXGYxXGZzMjJcbGFuZzEwMz NcaGljaFxmMVxkYmNoXGYxX LehU3iqFzCnRvRuJgBAvk3s m2XbTNYxeaS4jSmoQZOsm8O ly7UyEcHYXFLiD9FgKR6zjS XgVGTltm67 [facility] Microscopic Description i0nubKDsZNUogVZq ZjIyMDA tDVNyb1mvNPWauNKlHwBrPq NcZnRuYmpcdWMxXGRlZmYwe 0tml718dHCdq9fyGEThPpB2 kAApRAUwiUAsH889LYDkARb bh3zfa7PcANOtuKMxg9T0KE WUezwwzGa4tTvzQ06gu8K8E bxsG4rnWZIvWOJiM0WjRR4q XVFoPub0KNU5UZY0ZZQqZEE xA1RbUX5pJTCwvVFxFKr0e5 yonFueTFTgVVA7l7ooRUrvf fCuHR2bfq2xkYt4c4nmaiWm HGLnOPGvuJGBBCYxV1EabKy rId6rbKd5sRsjCyhsTSP5Wr b8CL4aev45juy7hBauUFUlk uazZlA2VAyuJHUxykssZIe7 UVawEBOnpQV6MOUssDRkL3V lOBJeUQ0acle8WMQ8UVxoID NfNlK0NTHimHCeXHKwrRkrE Xrwb270LQJ4UhVrTH9wP2Jc k3T9tR6euCEzVQTmtKYkPzZ mXEVkyo5evLXhVOnwd1BrXU M9koJ5sCSinPYbIZAcCC27B nsyd4JeSfqcYHC4IRUltmCn j8Gcv1vaKiPtphJzM1zvZ4B yZHJoZWFkXHBnYnJkcmZvb3 Yrv6WbaLXsiYn8m5auTNSyS XNxxQuma2kjVJH7XRAcG7J4 wYSxz0wlISdySKFsoXP0cgM 6WUVskXTfX2UdkN3mHOSwZG 6zuhk6b3xgAMJ7LHfeEPCyD gD0yfS8LXWyvFLpMYZjkKpk LVaoi774FAH6CvOkFHMdd4M zY6YdwTcvR03vqCeuB17iYH InoSapsV1pqBktwL1aDnOqT nMyNFxxbFxwbGFpblxmMVxm esOrDWkmhgtyTMFsSJjtU6j cPfVzEUHyzXmqLBrur8HpKC GnLKCkPkUzNQZpyFWtj4Noh 6AoLaQcmCGwyU7lcSnxjwF4 JBJslNPeKk2cwMBxLrXoeAI yfQ== [facility] Pathologic Diagnosis b8yuzANmRYXypCNeDPL wNVx bbeFeZAGyjHJaH3GcamukIN ccQA9uEX6kmAyvkRPdiBAgL WTjGhSle6igh146zISph1tq TLRYylotmHc1j3pfJUJWwX5 cn8d6vD00LNBcvJ0xsNSnGC hfprHtNCjfibBpogDrHce0V NN4bXldKwftxCA6xLPvqHV0 ORrji0QppPhsnRlnVUCcQQL uADK6X8ybbBD5sOGpaOobvK FdBR6uu4flcEM1xlGqWAW8n BszfYJ4iMzqrvbuj2jcgWP8 xMM4ERmbdNU7GWzbBsQgR3s wIDUiwR3jZ42cU4fzCTAzaH beVXcaPSPudZV0XLI6CKEdg 1xsZXZlbHRleHRcJzAxXCdi Pge3m8toSGUasN09wVOucqI 7fVxmMVxmczIwXGxpMzYwXG ZpMTgwfXtcbGlzdGxldmVsX WsccxDajlTjJpWirWP3WBnr HiYpSrQizRR1SLbgPfVzwAS 2COeioGMlzBU5TTwwxUX3AX i7UWn2UWltWVklXsm1dPwoe GG8JAktzF8uPQClR01vXaTx BaNaLL20DXkii9OeINEzhDz iMBWlaG2zIgYqFPjxhuGnoc ZjbjIzXGxldmVsamMwXGxld uKkj4CphcRazVZ6DQubuqFn iUE6oHdkNLGtK8M8A073GIm jvdYftyTwGlOsejo6KTJuHS BfDpR3e0xcdQY2hJX9AUmla BI5XTcpJcKiU7daAZAgvP1x L86zN3xxBYIwxCibFZrjFTF rvXS5OGB4SGTlo0yuMTYedQ MqeHKfGoJqXLopQci4k9idC ALcxK55vDQnsdE6oKbdWBgn czIwfXtcbGlzdGxldmVsXGx gwbFqwlKaNcIncTZ4VGkmTo CpKoEwlYG8NQtfYaDwyHZ8O GzohRXxgWY4LHzsvVO7XSu9 QOt4OBkuUJbaFlo7hFfosOQ 6OIvcfR0qLETkY72dSsFnCa HzEH94XZufn3ImZRYxwLqeR VOyuT8nBgGyURnjvuYvkaKw bjIzXGxldmVsamMwXGxldmV ci4MijhRvmVH1IQpqxdMctZ Q1nNpiXWBgE2P0Q708PIisc gBujcNsYjYwyif1HWTtUTRt RfF2o1cyjAG2nZD4VZauzIU 6MLdxFdLlG4sdJBDiaF8tJ3 8mY7rtUZLkbWelLHseOVFqv DC9VAT9QQMcq4fxTVRprNQa wLGeUhJzULvsGjk1x8ipJBS cbA57hZDvgiL7uExsXNcbpt IwfXtcbGlzdGxldmVsXGxld rEizqAkPvOsoWV3AEscRzNr UfNoaGY6WDafYqVumVY4PRu waDXklBT3PAkvwOK1WAu5DG n3ADjgBDcrKnt8oWptaIL9M NusvP4qOCCqG85rEhDoWyGa QD95BIwzc9BvCFEpgLbeLHB tbL2nFyTzMNnirdKmxaHyuk IzXGxldmVsamMwXGxldmVsc 2MiroNtbBO7KSbxauVkvEC5 uTbnLQMqC3S6O037LJrsnhT xnzMzThOzdjc7GFIpNETsEi K3uO61QFpdiNsysC01VIJlc PQekDNytHW7HWdjbZbweH27 MKFwbXBkTDcpn7TxWEWxTgB 7NpQaRTEyjClrpJ59MVExkY RpY041ilCxULcwRM65TVXnu GVydzEyMjQwXHBhcGVyaDE1 QJVjGM0fehsbWTjvPWcsRFI kleW8MYRwpLPeY7XtORFzMO 8hwcifLXG2RXozTEYhJSZ6T uKcTWMze9Mbotd5QaWaiUVc PZjnoDNqwcxlMOQsZlPrU2N bZBCaFRE3j77wB9ljPXOva7 BzeTpccGFyXGxpMzYwXGZpM EkrEXzzvxI7XKdgfwYfpHt5 yLAhnSqjjN2iRtmjwuCuGUJ qIZPWe5AggCWqxf6okS3zJI TkyuACkdSVFHlaT92gTNH6N ESjaOzhr4WnSTtiKO56wZJk ZWRccGFyfQ== [facility] Professional Interpretation Performed at: p0gtjPIqZHVqlECfNzSnDDJ gWXXhy0dwXQIqhWQfWuDaOa NcZnRuYmpcdWMxXGRlZmYwe 9nbh914yBXbo3fwMWGfPvP9 eAZmQBPnwIUmT782BMUqVUz mk1jdq0FwWFNlhHPly2X6KY AAazjpaNh6hBuwG15qt9G3J myaG2dvBAEsXBIlA9HaQL3x VGNfDyf0LKT9GON7WJOjUZT lD6MyTD3fLTFmkECePUf0c9 ybpObcEYVqOXD4c0qcJKcgi hKjWJ6llo5nvJv3e2hbykFl RJTpMOYeeEFKYNPyG7FnuPg cMl5xiZs0gHfsNierGBL3Lq d8FQ3ovi40edr0eIrqXUNyx eojAaD3OZicXUKuopbzOXx5 FMhrQNBqzEH6YFIqfXOvJ6K mQBCqTS5mgnl8NAZ0ZDzoBN DnDvM8MCSovFFyZMZmwHqrH Ycsf532KKK7GfBgGJ3lE3Kw o3D8cS5jgRNvJVKwfRJxWgF uSBUihw2xfJLsSTpwf4CqXT F1wuL9pYVvwVRrHZHhNW80W ppqq3PfYegiMLV3HAGhsxOx e3Ffd5iiHpHsvlEwC3joE7O yZHJoZWFkXHBnYnJkcmZvb3 Iak6YoqUKweDe4u0zrEWGdX CUgvHdwv3hnCOI0UTLwH4X7 pGEar0zkNVfmDMXdcFQ1jmJ 0FJZepWKrY5HmyJ4tWEErXN 2hley3w2ghMKJ9WLbxIAHxZ qX9zlX5MRBlnYOhKDUigLui GTror015PTX4GwRyFWJpd6A rM3MnrVyuO10okIqnJ33xXF SiiGebxS1nxSebjX6kKbXpB nMyNFxwYXJkXHBsYWluXGYx XGZzMjJcbGFuZzEwMzNcaGl jaFxmMVxkYmNoXGYxXGxvY2 shMqZaJoXbJwNSL0YtV7YUA yIDIW7WEYzLEZchM5CNJLJX KNJVFR3EX2ZBFQbTUh9GUCY DBrqhuCQoAOSpTLOUZDN1LW PthLzbNQKaCSCpxcMNt3o5y WN0hpooS1vhijS7AoVfVYkb YXJ9 [facility] CBC,PLATELETSon 08-11-2024 Erythrocyte distribution width (RBC) [Ratio] 13.7 % 10.8 - 14.9 % [facility] Hematocrit (Bld) [Volume fraction] 43.2 % 34.9 - 44.3 % [facility] Hemoglobin (Bld) [Mass/Vol] 14 g/dL 11.4 - 15.2 g/dL [facility] Interpretation and review of laboratory results Abnormal [facility] MCH (RBC) [Entitic mass] 29.9 pg 25.9 - 33.9 pg [facility] MCHC (RBC) [Mass/Vol] 32.4 g/dL 31.4 - 35.9 g/dL [facility] MCV (RBC) [Entitic vol] 92.1 fL 79.6 - 97.7 fL [facility] Platelet mean volume (Bld) [Entitic vol] 11.5 fL 8.5 - 12.2 fL [facility] Platelets (Bld) [#/Vol] 240 10*3/uL 150 - 393 K/uL [facility] RBC (Bld) [#/Vol] 4.69 10*6/uL [facility] WBC (Bld) [#/Vol] 11.76 10*3/uL High 3.99 - 11.19 K/uL [facility] Hematocrit (Bld) [Volume fraction] 43.2 % Normal 34.9-44.3 [facility] Comment on above: Performed By: #### T YPEC #### [facility] (DEFAULT) [address] [address] Hemoglobin (Bld) [Mass/Vol] 14.0 g/dL Normal 11.4-15.2 [facility] Comment on above: Performed By: #### T YPEC #### [facility] (DEFAULT) [address] [address] MCV (RBC) [Entitic vol] 92.1 fL Normal 79.6-97.7 [facility] Comment on above: Performed By: #### T YPEC #### [facility] (DEFAULT) [address] [address] Mean Cell Hgb 29.9 pg Normal 25.9-33.9 [facility] Comment on above: Performed By: #### T YPEC #### [facility] (DEFAULT) [address] [address] Mean Cell Hgb Conc 32.4 g/dL Normal 31.4-35.9 [facility] Comment on above: Performed By: #### T YPEC #### [facility] (DEFAULT) [address] [address] Platelet mean volume (Bld) [Entitic vol] 11.5 fL Normal 8.5-12.2 [facility] Comment on above: Performed By: #### T YPEC #### [facility] (DEFAULT) [address] [address] Platelets (Bld) [#/Vol] 240 10*3/uL Normal 150-393 [facility] Comment on above: Performed By: #### T YPEC #### [facility] (DEFAULT) [address] [address] RBC (Bld) [#/Vol] 4.69 10*6/uL Normal 3.91-5.04 [facility] Comment on above: Performed By: #### T YPEC #### [facility] (DEFAULT) [address] [address] RBC Distribution 13.7 % Normal 10.8-14.9 [facility] Comment on above: Performed By: #### T YPEC #### [facility] (DEFAULT) [address] [address] WBC (Bld) [#/Vol] 11.76 10*3/uL High 3.99-11.19 [facility] Comment on above: Performed By: #### T YPEC #### [facility] (DEFAULT) [address] [place] [address] CHEM 7 (LYTES,BUN,CREA,GLUC) on 08-11-2024 Anion gap [Moles/Vol] 14 mmol/L 7 - 17 mmol/L [facility] Chloride [Moles/Vol] 103 mmol/L 98 - 10 8 mmol/L [facility] CO2 [Moles/Vol] 26 mmol/L 21 - 31 mmol/L [facility] Creatinine [Mass/Vol] 1.32 mg/dL High 0.50 - 1.20 mg/dL [facility] eGFR, CKD-EPI, Female 41 Low - PINF [facility] Glucose [Mass/Vol] 127 mg/dL 70 - 179 mg/dL [facility] Interpretation and review of laboratory results Abnormal [facility] Osmolality Calc [Osmolality] 306 High [facility] Potassium [Moles/Vol] 4.6 mmol/L 3.5 - 5.0 mmol/L [facility] Sodium [Moles/Vol] 138 mmol/L 135 - 145 mmol/L [facility] Urea nitrogen [Mass/Vol] 53 mg/dL High 7 - 25 mg/dL [facility] Urea nitrogen/Creatinine [Mass ratio] 40 mg/mg [facility] Anion gap [Moles/Vol] 14 mmol/L Normal 7-17 [facility] Comment on above: Performed By: #### [place] [facility] #### [facility] (DEFAULT) [address] [place] [address] Chloride [Moles/Vol] 103 mmol/L Normal 98-108 [facility] Comment on above: Performed By: #### [place] [facility] [place] #### [facility] (DEFAULT) [address] [place] [address] CO2 [Moles/Vol] 26 mmol/L Normal 21-31 [facility] Comment on above: Performed By: #### [place] [facility] [place] #### [facility] (DEFAULT) [address] [place] [address] Creatinine [Mass/Vol] 1.32 mg/dL High 0.50-1.20 [facility] Comment on above: Performed By: #### [place] [facility] [place] #### [facility] (DEFAULT) [address] [address] GFR/1.73 sq M.predicted among non-blacks MDRD (S/P/Bld) [Vol rate/Area] 41 mL/min/{1.73_m2} Low >=60 [facility] Comment on above: Result Comment: Repo rted eGFR is based on the CKD-EPI 2020 equation using creatinine, age, and sex. Performed By: #### [facility] [place] [place] #### [place] [facility] (DEFAULT) [address] [address] Glucose [Mass/Vol] 127 mg/dL Normal Nonfastin -179 mg/dL; Fastin-99 [facility] Comment on above: Performed By: #### H EMO #### [facility] (DEFAULT) [address] [address] Osmolality [Osmolality] 306 mosm/kg High 278-305 [facility] Comment on above: Performed By: #### H EMO #### [facility] (DEFAULT) [address] [address] Potassium [Moles/Vol] 4.6 mmol/L Normal 3.5-5.0 [facility] Comment on above: Performed By: #### H EMO #### [facility] (DEFAULT) [address] [address] Sodium [Moles/Vol] 138 mmol/L Normal 135-145 [facility] Comment on above: Performed By: #### H EMOGC #### [facility] (DEFAULT) [address] [address] Urea nitrogen [Mass/Vol] 53 mg/dL High 7-25 [facility] Comment on above: Performed By: #### H EMOGC #### [facility] (DEFAULT) [address] [place] [address] Urea nitrogen/Creatinine [Mass ratio] 40 mg/mg Normal [facility] Comment on above: Performed By: #### [place] [facility] [place] #### [facility] (DEFAULT) [address] [place] [address] GLUCOSE POCon 08-11-2024 Glucose [Mass/Vol] 213 mg/dL High 70 - 179 mg/dL [facility] Interpretation and review of laboratory results Abnormal [facility] POC Sample Type CAPBL [facility] Glucose [Mass/Vol] 255 mg/dL High 70 - 179 mg/dL [facility] Interpretation and review of laboratory results Abnormal [facility] POC Sample Type CAPBL [facility] Glucose [Mass/Vol] 190 mg/dL High 70 - 179 mg/dL [facility] Interpretation and review of laboratory results Abnormal [facility] POC Sample Type CAPBL [facility] Glucose [Mass/Vol] 205 mg/dL High 70 - 179 mg/dL [facility] Interpretation and review of laboratory results Abnormal [facility] POC Sample Type CAPBL [facility] MAGNESIUMon 08-11-2024 Interpretation and review of laboratory results Normal [facility] Magnesium [Mass/Vol] 1.9 mg/dL 1.6 - 2 .6 mg/dL [facility] Magnesium [Mass/Vol] 1.9 mg/dL Normal 1.6-2.6 [facility] Comment on above: Performed By: #### M [facility] #### [facility] (DEFAULT) [address] [place] [address] No Panel Informationon 08-11 [facility] BLOOD CULTUREon 08-10-2024 Bacteria identified Cx Nom (Unsp spec) NO GROWTH DAY 5 OF 5 Normal [facility] Comment on above: Order Comment: [...] bottle. Performed By: #### T YPEC #### [facility] (DEFAULT) [address] [address] Bacteria identified Cx Nom (Unsp spec) NO GROWTH DAY 5 OF 5 Normal [facility] Comment on above: Order Comment: [...] bottle. Performed By: #### B LDCULT #### [facility] (DEFAULT) [address] [address] CBC,PLATELETSon 08-10-2024 Erythrocyte distribution width (RBC) [Ratio] 13.3 % 10.8 - 14.9 % [facility] Hematocrit (Bld) [Volume fraction] 45.1 % High 34.9 - 44.3 % [facility] Hemoglobin (Bld) [Mass/Vol] 14.1 g/dL 11.4 - 15.2 g/dL [facility] Interpretation and review of laboratory results Abnormal [facility] MCH (RBC) [Entitic mass] 29.1 pg 25.9 - 33.9 pg [facility] MCHC (RBC) [Mass/Vol] 31.3 g/dL Low 31.4 - 35.9 g/dL [facility] MCV (RBC) [Entitic vol] 93 fL 79.6 - 97.7 fL [facility] Platelet mean volume (Bld) [Entitic vol] 11.4 fL 8.5 - 12.2 fL [facility] Platelets (Bld) [#/Vol] 216 10*3/uL 150 - 393 K/uL [facility] RBC (Bld) [#/Vol] 4.85 10*6/uL [facility] WBC (Bld) [#/Vol] 13.78 10*3/uL High 3.99 - 11.19 K/uL [facility] Hematocrit (Bld) [Volume fraction] 45.1 % High 34.9-44.3 [facility] Comment on above: Performed By: #### [place] [facility] [place] #### [facility] (DEFAULT) [address] [address] Hemoglobin (Bld) [Mass/Vol] 14.1 g/dL Normal 11.4-15.2 [facility] Comment on above: Performed By: #### H EMO #### [facility] (DEFAULT) [address] [address] MCV (RBC) [Entitic vol] 93.0 fL Normal 79.6-97.7 [facility] Comment on above: Performed By: #### H EMO #### [facility] (DEFAULT) [address] [address] Mean Cell Hgb 29.1 pg Normal 25.9-33.9 [facility] Comment on above: Performed By: #### H EMO #### [facility] (DEFAULT) [address] [address] Mean Cell Hgb Conc 31.3 g/dL Low 31.4-35.9 [facility] Comment on above: Performed By: #### H EMOGC #### [facility] (DEFAULT) [address] [address] Platelet mean volume (Bld) [Entitic vol] 11.4 fL Normal 8.5-12.2 [facility] Comment on above: Performed By: #### H EMOGC #### [facility] (DEFAULT) [address] [place] [address] Platelets (Bld) [#/Vol] 216 10*3/uL Normal 150-393 [facility] Comment on above: Performed By: #### H EMOGC #### [facility] (DEFAULT) [address] [place] [address] RBC (Bld) [#/Vol] 4.85 10*6/uL Normal 3.91-5.04 [facility] Comment on above: Performed By: #### H EMOGC #### [facility] (DEFAULT) [address] [place] [address] RBC Distribution 13.3 % Normal 10.8-14.9 [facility] Comment on above: Performed By: #### H EMOGC #### [facility] (DEFAULT) [address] [place] [address] WBC (Bld) [#/Vol] 13.78 10*3/uL High 3.99-11.19 [facility] Comment on above: Performed By: #### [place] [facility] #### [facility] (DEFAULT) [address] [place] [address] CHEM 7 (LYTES,BUN,CREA,GLUC) on 08-10-2024 Anion gap [Moles/Vol] 16 mmol/L 7 - 17 mmol/L [facility] Chloride [Moles/Vol] 103 mmol/L 98 - 10 8 mmol/L [facility] CO2 [Moles/Vol] 24 mmol/L 21 - 31 mmol/L [facility] Creatinine [Mass/Vol] 1.36 mg/dL High 0.50 - 1.20 mg/dL [facility] eGFR, CKD-EPI, Female 40 Low - PINF [facility] Glucose [Mass/Vol] 186 mg/dL High 70 - 179 mg/dL [facility] Interpretation and review of laboratory results Abnormal [facility] Osmolality Calc [Osmolality] 308 High [facility] Potassium [Moles/Vol] 4.9 mmol/L 3.5 - 5.0 mmol/L [facility] Sodium [Moles/Vol] 138 mmol/L 135 - 145 mmol/L [facility] Urea nitrogen [Mass/Vol] 47 mg/dL High 7 - 25 mg/dL [facility] Urea nitrogen/Creatinine [Mass ratio] 35 mg/mg [facility] Anion gap [Moles/Vol] 16 mmol/L Normal 7-17 [facility] Comment on above: Performed By: #### Jaiden NGUYEN CHM7 ####[facility] (DEFAULT)[address] [place] [address] Chloride [Moles/Vol] 103 mmol/L Normal 98-108 [facility] Comment on above: Performed By: #### Jaiden NGUYEN CHM7 ####[facility] (DEFAULT)[address] [place] [address] CO2 [Moles/Vol] 24 mmol/L Normal 21-31 [facility] Comment on above: Performed By: #### Jaiden NGUYEN CHM7 ####[facility] (DEFAULT)[address] [place] [address] Creatinine [Mass/Vol] 1.36 mg/dL High 0.50-1.20 [facility] Comment on above: Performed By: #### Jaiden NGUYEN CHM7 ####[facility] (DEFAULT)[address] [place] [address] GFR/1.73 sq M.predicted among non-blacks MDRD (S/P/Bld) [Vol rate/Area] 40 mL/min/{1.73_m2} Low >=60 [facility] Comment on above: Result Comment: Repo rted eGFR is based on the CKD-EPI 2020 equation using creatinine, age, and sex. Performed By: #### Jaiden NGUYEN CHM7 ####[facility] (DEFAULT)[address] [place] [address] Glucose [Mass/Vol] 186 mg/dL High Nonfastin -179 mg/dL; Fastin-99 [facility] Comment on above: Performed By: #### HEYDI PALACIOS7 ####[facility] (DEFAULT)[address] [place] [address] Osmolality [Osmolality] 308 mosm/kg High 278-305 [facility] Comment on above: Performed By: #### HEYDI PALACIOS7 ####U [facility] (DEFAULT)[address] [place] [address] Potassium [Moles/Vol] 4.9 mmol/L Normal 3.5-5.0 [facility] Comment on above: Performed By: #### HEYDI PALACIOS7 ####[facility] (DEFAULT)[address] [place] [address] Sodium [Moles/Vol] 138 mmol/L Normal 135-145 [facility] Comment on above: Performed By: #### HEYDI PALACIOS7 ####[facility] (DEFAULT)[address] [place] [address] Urea nitrogen [Mass/Vol] 47 mg/dL High 7-25 [facility] Comment on above: Performed By: #### Jaiden NGUYEN CHM7 ####[facility] (DEFAULT)[address] [facility] [place] [address] Urea nitrogen/Creatinine [Mass ratio] 35 mg/mg Normal [facility] Comment on above: Performed By: #### Jaiden NGUYEN CHM7 ####[facility] (DEFAULT)[address] [place] [address] GLUCOSE POCon 08-10-2024 Glucose [Mass/Vol] 144 mg/dL 70 - 179 mg/dL [facility] POC Sample Type CAPBL [facility] Glucose [Mass/Vol] 177 mg/dL 70 - 179 mg/dL [facility]OC [facility] Glucose [Mass/Vol] 180 mg/dL High 70 - 179 mg/dL [facility] Interpretation and review of laboratory results Abnormal [facility] Glucose [Mass/Vol] 193 mg/dL High 70 - 179 mg/dL [facility] Interpretation and review of laboratory results Abnormal [facility]OC [facility] Glucose [Mass/Vol] 200 mg/dL High 70 - 179 mg/dL [facility] Interpretation and review of laboratory results Abnormal [facility] POC [facility] Glucose [Mass/Vol] 198 mg/dL High 70 - 179 mg/dL [facility] Interpretation and review of laboratory results Abnormal [facility] MAGNESIUMon 08-10-2024 Interpretation and review of laboratory results Normal [facility] Magnesium [Mass/Vol] 1.8 mg/dL 1.6 - 2 .6 mg/dL [facility] Magnesium [Mass/Vol] 1.8 mg/dL Normal 1.6-2.6 [facility] Comment on above: Performed By: #### M , [facility] ####[facility] (DEFAULT)[address] [place] [address] No Panel Informationon 08-10 [facility] URINE CULTUREOrdered By: Franklin Carcamo on 08-10-2024 Bacteria identified Cx Nom (Unsp spec) Growth [facility] Bacteria identified Cx Nom (Unsp spec) KLEBSIELLA PNEUMONIAE Abnormal [facility] Interpretation and review of laboratory results Abnormal [facility] CBC,PLATELETSon 08-09-2024 Erythrocyte distribution width (RBC) [Ratio] 13.5 % 10.8 - 14.9 % [facility] Hematocrit (Bld) [Volume fraction] 44.4 % High 34.9 - 44.3 % [facility] Hemoglobin (Bld) [Mass/Vol] 14.1 g/dL 11.4 - 15.2 g/dL [facility] Interpretation and review of laboratory results Abnormal [facility] MCH (RBC) [Entitic mass] 29.4 pg 25.9 - 33.9 pg [facility] MCHC (RBC) [Mass/Vol] 31.8 g/dL 31.4 - 35.9 g/dL [facility] MCV (RBC) [Entitic vol] 92.7 fL 79.6 - 97.7 fL [facility] Platelet mean volume (Bld) [Entitic vol] 11.5 fL 8.5 - 12.2 fL [facility] Platelets (Bld) [#/Vol] 226 10*3/uL 150 - 393 K/uL [facility] RBC (Bld) [#/Vol] 4.79 10*6/uL [facility] WBC (Bld) [#/Vol] 12.37 10*3/uL High 3.99 - 11.19 K/uL [facility] Hematocrit (Bld) [Volume fraction] 44.4 % High 34.9-44.3 [facility] Comment on above: Performed By: #### [place] [facility] #### [facility] (DEFAULT) [address] [address] Hemoglobin (Bld) [Mass/Vol] 14.1 g/dL Normal 11.4-15.2 [facility] Comment on above: Performed By: #### [facility] [place] #### [facility] (DEFAULT) [address] [place] [address] MCV (RBC) [Entitic vol] 92.7 fL Normal 79.6-97.7 [facility] Comment on above: Performed By: #### H EMOGC #### [facility] (DEFAULT) [address] [address] Mean Cell Hgb 29.4 pg Normal 25.9-33.9 [facility] Comment on above: Performed By: #### H EMOGC #### [facility] (DEFAULT) [address] [address] Mean Cell Hgb Conc 31.8 g/dL Normal 31.4-35.9 [facility] Comment on above: Performed By: #### H EMOGC #### [facility] (DEFAULT) [address] [address] Platelet mean volume (Bld) [Entitic vol] 11.5 fL Normal 8.5-12.2 [facility] Comment on above: Performed By: #### H EMOGC #### [facility] (DEFAULT) [address] [address] Platelets (Bld) [#/Vol] 226 10*3/uL Normal 150-393 [facility] Comment on above: Performed By: #### H EMOGC #### [facility] (DEFAULT) [address] [address] RBC (Bld) [#/Vol] 4.79 10*6/uL Normal 3.91-5.04 [facility] Comment on above: Performed By: #### H EMOGC #### [facility] (DEFAULT) [address] [address] RBC Distribution 13.5 % Normal 10.8-14.9 [facility] Comment on above: Performed By: #### H EMOGC #### [facility] (DEFAULT) [address] [address] WBC (Bld) [#/Vol] 12.37 10*3/uL High 3.99-11.19 [facility] Comment on above: Performed By: #### H EMOGC #### [facility] (DEFAULT) [address] [place] [address] CHEM 7 (LYTES,BUN,CREA,GLUC) on 08-09-2024 Anion gap [Moles/Vol] 14 mmol/L 7 - 17 mmol/L [facility] Chloride [Moles/Vol] 103 mmol/L 98 - 10 8 mmol/L [facility] CO2 [Moles/Vol] 26 mmol/L 21 - 31 mmol/L [facility] Creatinine [Mass/Vol] 1.35 mg/dL High 0.50 - 1.20 mg/dL [facility] eGFR, CKD-EPI, Female 40 Low - PINF [facility] Glucose [Mass/Vol] 182 mg/dL High 70 - 179 mg/dL [facility] Interpretation and review of laboratory results Abnormal [facility] Osmolality Calc [Osmolality] 305 [facility] Potassium [Moles/Vol] 4.9 mmol/L 3.5 - 5.0 mmol/L [facility] Sodium [Moles/Vol] 138 mmol/L 135 - 145 mmol/L [facility] Urea nitrogen [Mass/Vol] 38 mg/dL High 7 - 25 mg/dL [facility] Urea nitrogen/Creatinine [Mass ratio] 28 mg/mg [facility] Anion gap [Moles/Vol] 14 mmol/L Normal 7-17 [facility] Comment on above: Performed By: #### [facility] #### [facility] (DEFAULT) [address] [place] [address] Chloride [Moles/Vol] 103 mmol/L Normal 98-108 [facility] Comment on above: Performed By: #### [facility] #### [facility] (DEFAULT) [address] [place] [address] CO2 [Moles/Vol] 26 mmol/L Normal 21-31 [facility] Comment on above: Performed By: #### [facility] #### [facility] (DEFAULT) [address] [place] [address] Creatinine [Mass/Vol] 1.35 mg/dL High 0.50-1.20 [facility] Comment on above: Performed By: #### [facility] #### [facility] (DEFAULT) [address] [address] GFR/1.73 sq M.predicted among non-blacks MDRD (S/P/Bld) [Vol rate/Area] 40 mL/min/{1.73_m2} Low >=60 [facility] Comment on above: Result Comment: Repo rted eGFR is based on the CKD-EPI 2020 equation using creatinine, age, and sex. Performed By: #### [facility] #### [place] [facility] (DEFAULT) [address] [address] Glucose [Mass/Vol] 182 mg/dL High Nonfastin -179 mg/dL; Fastin-99 [facility] Comment on above: Performed By: #### H EMO #### [facility] (DEFAULT) [address] [address] Osmolality [Osmolality] 305 mosm/kg Normal 278-305 [facility] Comment on above: Performed By: #### H EMO #### [facility] (DEFAULT) [address] [address] Potassium [Moles/Vol] 4.9 mmol/L Normal 3.5-5.0 [facility] Comment on above: Performed By: #### [facility] #### [facility] (DEFAULT) [address] [address] Sodium [Moles/Vol] 138 mmol/L Normal 135-145 [facility] Comment on above: Performed By: #### H EMOGC #### [facility] (DEFAULT) [address] [address] Urea nitrogen [Mass/Vol] 38 mg/dL High 7-25 [facility] Comment on above: Performed By: #### H EMO #### [facility] (DEFAULT) [address] [place] [address] Urea nitrogen/Creatinine [Mass ratio] 28 mg/mg Normal [facility] Comment on above: Performed By: #### [place] [facility] #### [facility] (DEFAULT) [address] [place] [address] EXTRA MICROon 08-09-2024 [facility] GLUCOSE POCon 08-09-2024 Glucose [Mass/Vol] 186 mg/dL High 70 - 179 mg/dL [facility] Interpretation and review of laboratory results Abnormal [facility] POC Sample Type CAPBL [facility] Glucose [Mass/Vol] 255 mg/dL High 70 - 179 mg/dL [facility] Interpretation and review of laboratory results Abnormal [facility] POC Sample Type CAPBL [facility] Glucose [Mass/Vol] 235 mg/dL High 70 - 179 mg/dL [facility] Interpretation and review of laboratory results Abnormal [facility] POC Sample Type CAPBL [facility] Glucose [Mass/Vol] 167 mg/dL 70 - 179 mg/dL [facility] POC Sample Type [facility] [facility] INTERVENTIONAL UPPER ENDOSCO PYon 08-09-2024 Body surface area Derived from formula 1.9 m2 [facility] observation (narrative) [facility] MAGNESIUMon 08-09-2024 Interpretation and review of laboratory results Normal [facility] Magnesium [Mass/Vol] 1.8 mg/dL 1.6 - 2 .6 mg/dL [facility] Magnesium [Mass/Vol] 1.8 mg/dL Normal 1.6-2.6 [facility] Comment on above: Performed By: #### [facility] [place] [facility] (DEFAULT) [address] [place] [address] No Panel Informationon 08-09 [facility] PT,INR,PTTon 08-09-2024 aPTT Coag (PPP) [Time] 38.4 s High [facility] INR Coag (Bld) [Relative time] 1 {INR} 0.9 - 1.1 [facility] Interpretation and review of laboratory results Abnormal [facility] PT Coag (PPP) [Time] 13 s [facility] aPTT Coag (Bld) [Time] 38.4 s High 24.0-34.3 [facility] Comment on above: Performed By: #### B LDCULT #### [facility] (DEFAULT) [address] [place] [address] INR Coag (PPP) [Relative time] 1.0 {INR} Normal 0.9-1.1 [facility] Comment on above: Performed By: #### B LDCULT #### [facility] (DEFAULT) [address] [place] [address] PT Coag (PPP) [Time] 13.0 s Normal 11.9-14.2 [facility] Comment on above: Performed By: #### B LDCULT #### [facility] (DEFAULT) [address] [place] [address] SURG PATH REQUESTon 08-10-19 Case Report [facility] Comment on above: Result Comment: Surg ical Pathology Report Case: [id number] Authorizing Provider: Judson Keith DO Collected: 08/09/2024 10:07 AM Ordering Location: [facility] Received: 08/09/2024 12:13 PM Pathologist: Renae Glez MD Specimen: STOMACH, gastric, r/o HP Performed By: #### S URGP #### [facility] (DEFAULT) [address] [address] Clinical History R/O HP. Associated Diagnosis: None. Medical History: No medical history provided. Normal [facility] Comment on above: Performed By: #### S URGP #### [facility] (DEFAULT) [address] [place] [address] Gross Description [facility] Comment on above: Result Comment: The specimen is received in one properly labeled container with the patient's name and accession number. A. The specimen is designated "gastric, r/o hp" and consists of five fragments of jackson-pink soft tissue, from 0.2 up to 0.6 cm in greatest dimension. TE 1 Lab Use Only: JobID [id number] Grosser for this case was: Sunshine Hidalgo Performed By: #### S URGP #### [facility] (DEFAULT) [address] [place] [address] Microscopic Description A microscopic examination was performed. [facility] Comment on above: Performed By: #### S URGP #### [facility] (DEFAULT) [address] [address] Pathologic Diagnosis [facility] Comment on above: Result Comment: Anjelica echols, biopsy: Focal erosion No Helicobacter pylori identified at 1005 EDT Performed By: #### S URGP #### [facility] (DEFAULT) [address] [address] Professional Interpretation Performed at: [facility] Comment on above: Result Comment: [facility] For Immediate Release to [facility] Yes [address] [address] Performed By: #### S URGP #### [facility] (DEFAULT) [address] [address] CBC,PLATELETSon 08-08-2024 Erythrocyte distribution width (RBC) [Ratio] 13.6 % 10.8 - 14.9 % [facility] Hematocrit (Bld) [Volume fraction] 45.7 % High 34.9 - 44.3 % [facility] Hemoglobin (Bld) [Mass/Vol] 14.4 g/dL 11.4 - 15.2 g/dL [facility] Interpretation and review of laboratory results Abnormal [facility] MCH (RBC) [Entitic mass] 29.4 pg 25.9 - 33.9 pg [facility] MCHC (RBC) [Mass/Vol] 31.5 g/dL 31.4 - 35.9 g/dL [facility] MCV (RBC) [Entitic vol] 93.3 fL 79.6 - 97.7 fL [facility] Platelet mean volume (Bld) [Entitic vol] 10.9 fL 8.5 - 12.2 fL [facility] Platelets (Bld) [#/Vol] 212 10*3/uL 150 - 393 K/uL [facility] RBC (Bld) [#/Vol] 4.9 10*6/uL [facility] WBC (Bld) [#/Vol] 10.39 10*3/uL 3.99 - 11.19 K/uL [facility] Hematocrit (Bld) [Volume fraction] 45.7 % High 34.9-44.3 [facility] Comment on above: Performed By: #### [facility] [place] #### [facility] (DEFAULT) [address] [address] Hemoglobin (Bld) [Mass/Vol] 14.4 g/dL Normal 11.4-15.2 [facility] Comment on above: Performed By: #### [facility] [place] #### [facility] (DEFAULT) [address] [place] [address] MCV (RBC) [Entitic vol] 93.3 fL Normal 79.6-97.7 O [facility] Comment on above: Performed By: #### [facility] [place] #### [facility] (DEFAULT) [address] [place] [address] Mean Cell Hgb 29.4 pg Normal 25.9-33.9 [facility] Comment on above: Performed By: #### [facility] [place] #### [facility] (DEFAULT) [address] [place] [address] Mean Cell Hgb Conc 31.5 g/dL Normal 31.4-35.9 [facility] Comment on above: Performed By: #### H EMOGC #### [facility] (DEFAULT) [address] [place] [address] Platelet mean volume (Bld) [Entitic vol] 10.9 fL Normal 8.5-12.2 [facility] Comment on above: Performed By: #### H EMOGC #### [facility] (DEFAULT) [address] [place] [address] Platelets (Bld) [#/Vol] 212 10*3/uL Normal 150-393 [facility] Comment on above: Performed By: #### H EMOGC #### [facility] (DEFAULT) [address] [place] [address] RBC (Bld) [#/Vol] 4.90 10*6/uL Normal 3.91-5.04 [facility] Comment on above: Performed By: #### H EMOGC #### [facility] (DEFAULT) [address] [place] [address] RBC Distribution 13.6 % Normal 10.8-14.9 [facility] Comment on above: Performed By: #### H EMOGC #### [facility] (DEFAULT) [address] [place] [address] WBC (Bld) [#/Vol] 10.39 10*3/uL Normal 3.99-11.19 [facility] Comment on above: Performed By: #### H EMOGC #### [facility] (DEFAULT) [address] [place] [address] CHEM 7 (LYTES,BUN,CREA,GLUC) on 08-08-2024 Anion gap [Moles/Vol] 15 mmol/L 7 - 17 mmol/L [facility] Chloride [Moles/Vol] 104 mmol/L 98 - 10 8 mmol/L [facility] CO2 [Moles/Vol] 25 mmol/L 21 - 31 mmol/L [facility] Creatinine [Mass/Vol] 1.15 mg/dL 0.50 - 1.20 mg/dL [facility] eGFR, CKD-EPI, Female 48 Low - PINF [facility] Glucose [Mass/Vol] 111 mg/dL 70 - 179 mg/dL [facility] Interpretation and review of laboratory results Abnormal [facility] Osmolality Calc [Osmolality] [facility] Potassium [Moles/Vol] 4.3 mmol/L 3.5 - 5.0 mmol/L [facility] Sodium [Moles/Vol] 140 mmol/L 135 - 145 mmol/L [facility] Urea nitrogen [Mass/Vol] 35 mg/dL High 7 - 25 mg/dL [facility] Urea nitrogen/Creatinine [Mass ratio] 30 mg/mg [facility] Anion gap [Moles/Vol] 15 mmol/L Normal 7-17 [facility] Comment on above: Performed By: #### Jaiden NGUYEN CHM7 ####[facility] (DEFAULT)[address] [place] [address] Chloride [Moles/Vol] 104 mmol/L Normal 98-108 [facility] Comment on above: Performed By: #### Jaiden NGUYEN CHM7 ####[facility] (DEFAULT)[address] [place] [address] CO2 [Moles/Vol] 25 mmol/L Normal 21-31 [facility] Comment on above: Performed By: #### Jaiden NGUYEN CHM7 ####[facility] (DEFAULT)[address] [place] [address] Creatinine [Mass/Vol] 1.15 mg/dL Normal 0.50-1.20 [facility] Comment on above: Performed By: #### Jaiden NGUYEN CHM7 ####[facility] (DEFAULT)[address] [place] [address] GFR/1.73 sq M.predicted among non-blacks MDRD (S/P/Bld) [Vol rate/Area] 48 mL/min/{1.73_m2} Low >=60 [facility] Comment on above: Result Comment: Repo rted eGFR is based on the CKD-EPI 2020 equation using creatinine, age, and sex. Performed By: #### HEYDI PALACIOS7 ####[place] [facility] (DEFAULT)[address] [place] [address] Glucose [Mass/Vol] 111 mg/dL Normal Nonfastin -179 mg/dL; Fastin-99 [facility] Comment on above: Performed By: #### HEYDI PALACIOS7 ####[place] [facility] (DEFAULT)[address] [place] [address] Osmolality [Osmolality] 302 mosm/kg Normal 278-305 [facility] Comment on above: Performed By: #### CAMERON PALACIOS ####[place] [facility] (DEFAULT)[address] [place] [address] Potassium [Moles/Vol] 4.3 mmol/L Normal 3.5-5.0 [facility] Comment on above: Performed By: #### HEYDI PALACIOS7 ####[facility] (DEFAULT)[address] [place] [address] Sodium [Moles/Vol] 140 mmol/L Normal 135-145 [facility] Comment on above: Performed By: #### HEYDI PALACIOS7 ####[place] [facility] (DEFAULT)[address] [place] [address] Urea nitrogen [Mass/Vol] 35 mg/dL High 7-25 [facility] Comment on above: Performed By: #### HEYDI PALACIOS7 ####[facility] (DEFAULT)[address] [place] [address] Urea nitrogen/Creatinine [Mass ratio] 30 mg/mg Normal [facility] Comment on above: Performed By: #### M CHM7 ####[facility] (DEFAULT)[address] [place] [address] CT HEAD WITHOUT CONTRASTon 0 08-08-2024 CT [...] reviewed and approved this report. Normal [facility] CT Head WO contraston 2024 [facility] Radiology Study observation (narrative) [facility] GLUCOSE POCon 08-08-2024 Glucose [Mass/Vol] 150 mg/dL 70 - 179 mg/dL [facility] POC Sample [facility] Glucose [Mass/Vol] 148 mg/dL 70 - 179 mg/dL [facility] POC Sample Type [facility] Glucose [Mass/Vol] 192 mg/dL High 70 - 179 mg/dL [facility] Interpretation and review of laboratory results Abnormal [facility] POC Sample [facility] Glucose [Mass/Vol] 198 mg/dL High 70 - 179 mg/dL [facility] Interpretation and review of laboratory results Abnormal [facility] POC Sample Type [facility]BL [facility] Glucose [Mass/Vol] 186 mg/dL High 70 - 179 mg/dL [facility] Interpretation and review of laboratory results Abnormal [facility] POC Sample Type CAPBL [facility] MAGNESIUMon 08-08-2024 Interpretation and review of laboratory results Normal [facility] Magnesium [Mass/Vol] 1.7 mg/dL 1.6 - 2 .6 mg/dL [facility] Magnesium [Mass/Vol] 1.7 mg/dL Normal 1.6-2.6 [facility] Comment on above: Performed By: #### M [facility] ####[facility] (DEFAULT)[address] [place] [address] No Panel Informationon 08-08 [facility] URINALYSIS REFLEX TO CULTURE PERFORMABLEOrdered By: Danya Yates on 08-08-2024 Appearance (U) Cloudy Abnormal Clear [facility] Bacteria LM Ql (Urine sed) PRESENT Abnormal ABSENT [facility] Color (U) Yellow Yellow [facility] Epithelial cells.squamous LM Ql (Urine sed) 0-2/hpf 0-2/hpf, 3-5/hpf = 1+ [facility] Glucose Test strip (U) [Mass/Vol] Negative Negative [facility] Interpretation and review of laboratory results Abnormal [facility] Ketones (U) [Mass/Vol] Trace Abnormal Negative OS U [facility] Leukocyte esterase Test strip Ql (U) Large Abnormal Negative U [facility] Nitrite Ql (U) Positive Abnormal Negative [facility] pH (U) 7.0 [pH] 5.0 - 7.0 [facility] Protein (U) [Mass/Vol] Trace Abnormal Negative OS U [facility] RBC (U) [#/Vol] Trace Abnormal Negative [facility] RBC LM.HPF (Urine sed) [#/Area] 6-10 Abnormal [facility] Specific gravity (U) [Rel density] 1.023 1.001 - 1.035 [facility] Urobilinogen (U) [Mass/Vol] 1.0 E.U./dL 0.2 E.U/dL, 1.0 E.U/dL [facility] WBC LM.HPF (Urine sed) [#/Area] /[HPF] [facility] URINALYSIS REFLEX TO CULTURE PERFORMABLEon 08-08-2024 Appearance (U) Cloudy Abnormal Clear [facility] Comment on above: Order Comment: For i ndwelling catheters, specimen collection is acceptable on catheter day 1 and 2 only. ? Performed By: #### T YPEC #### [facility] (DEFAULT) [address] [address] Bacteria PRESENT Abnormal ABSENT [facility] Comment on above: Order Comment: For i ndwelling catheters, specimen collection is acceptable on catheter day 1 and 2 only. ? Performed By: #### T YPEC #### [facility] (DEFAULT) [address] [address] Blood Urine Trace Abnormal Negative [facility] Comment on above: Order Comment: For i ndwelling catheters, specimen collection is acceptable on catheter day 1 and 2 only. ? Performed By: #### T YPEC #### [facility] (DEFAULT) [address] [place] [address] Color (U) Yellow Normal Yellow [facility] Comment on above: Order Comment: For i ndwelling catheters, specimen collection is acceptable on catheter day 1 and 2 only. ? Performed By: #### T YPEC #### [facility] (DEFAULT) [address] [place] [address] Glucose Ql (U) Negative Normal Negative [facility] Comment on above: Order Comment: For i ndwelling catheters, specimen collection is acceptable on catheter day 1 and 2 only. ? Performed By: #### T YPEC #### [facility] (DEFAULT) [address] [place] [address] Ketones Ql (U) Trace Abnormal Negative [facility] Comment on above: Order Comment: For i ndwelling catheters, specimen collection is acceptable on catheter day 1 and 2 only. ? Performed By: #### T YPEC #### [facility] (DEFAULT) [address] [place] [address] Leukocyte esterase Test strip Ql (U) Large Abnormal Negative [facility] Comment on above: Order Comment: For i ndwelling catheters, specimen collection is acceptable on catheter day 1 and 2 only. ? Performed By: #### T YPEC #### [facility] (DEFAULT) [address] [place] [address] Nitrites Urine Positive Abnormal Negative [facility] Comment on above: Order Comment: For i ndwelling catheters, specimen collection is acceptable on catheter day 1 and 2 only. ? Performed By: #### T YPEC #### [facility] (DEFAULT) [address] [place] [address] pH (U) 7.0 [pH] Normal 5.0-7.0 [facility] Comment on above: Order Comment: For i ndwelling catheters, specimen collection is acceptable on catheter day 1 and 2 only. ? Performed By: #### T YPEC #### [facility] (DEFAULT) [address] [place] [address] Protein Urine Trace Abnormal Negative [facility] Comment on above: Order Comment: For i ndwelling catheters, specimen collection is acceptable on catheter day 1 and 2 only. ? Performed By: #### T YPEC #### [facility] (DEFAULT) [address] [address] RBC Urine 6-10 Abnormal 0-2 [facility] Comment on above: Order Comment: For i ndwelling catheters, specimen collection is acceptable on catheter day 1 and 2 only. ? Performed By: #### T YPEC #### [facility] (DEFAULT) [address] [address] Specific [place] Urine 1.023 Normal 1.001-1.035 O [facility] Comment on above: Order Comment: For i ndwelling catheters, specimen collection is acceptable on catheter day 1 and 2 only. ? Performed By: #### T YPEC #### [facility] (DEFAULT) [address] [address] Squamous/Epithelial Cells, Urine 0-2/hpf Normal 0-2/hpf, 3-5/hpf = 1+ [facility] Comment on above: Order Comment: For i ndwelling catheters, specimen collection is acceptable on catheter day 1 and 2 only. ? Performed By: #### T YPEC #### [facility] (DEFAULT) [address] [address] Urobilinogen Urine 1.0 E.U./dL Normal 0.2 E.U/d L, 1.0 E.U/dL [facility] Comment on above: Order Comment: For i ndwelling catheters, specimen collection is acceptable on catheter day 1 and 2 only. ? Performed By: #### T YPEC #### [facility] (DEFAULT) [address] [address] WBC LM.HPF (Urine sed) [#/Area] /[HPF] Abnormal 0 - 5 [facility] Comment on above: Order Comment: For i ndwelling catheters, specimen collection is acceptable on catheter day 1 and 2 only. ? Performed By: #### T YPEC #### [facility] (DEFAULT) [address] [address] URINE CULTUREon 08-08-2024 Amikacin [Susceptibility] <= Invalid Interpretation Code [facility] Comment on above: Order Comment: For [...] ? Performed By: #### T YPEC #### [facility] (DEFAULT) [address] [place] [address] Ampicillin [Susceptibility] >=32 Resistant [facility] Comment on above: Order Comment: For [...] ? Performed By: #### T YPEC #### [facility] (DEFAULT) [address] [place] [address] Ampicillin+Sulbactam [Susceptibility] >=32 Resistant [facility] Comment on above: Order Comment: For [...] ? Performed By: #### T YPEC #### [facility] (DEFAULT) [address] [place] [address] ceFAZolin [Susceptibility] >= Resistant [facility] Comment on above: Order Comment: For [...] Performed By: #### T YPEC #### [facility] (DEFAULT) [address] [address] Cefepime [Susceptibility] <= Invalid Interpretation Code [facility] Comment on above: Order Comment: For [...] Performed By: #### T YPEC #### [place] [facility] (DEFAULT) [address] [address] cefTRIAXone [Susceptibility] <= Invalid Interpretation Code [facility] Comment on above: Order Comment: For [...] Performed By: #### T YPEC #### U [facility] (DEFAULT) [address] [address] Ciprofloxacin [Susceptibility] >= Resistant [facility] Comment on above: Order Comment: For [...] ? Performed By: #### T YPEC #### [facility] (DEFAULT) [address] [address] Ertapenem [Susceptibility] <= Invalid Interpretation Code [facility] Comment on above: Order Comment: For [...] Performed By: #### T YPEC #### [facility] (DEFAULT) [address] [address] Gentamicin [Susceptibility] <= Invalid Interpretation Code [facility] Comment on above: Order Comment: For [...] ? Performed By: #### T YPEC #### [facility] (DEFAULT) [address] [address] levoFLOXacin [Susceptibility] >= Resistant [facility] Comment on above: Order Comment: For [...] Performed By: #### T YPEC #### [facility] (DEFAULT) [address] [address] Nitrofurantoin [Susceptibility] 128 ug/mL Resistant [facility] Comment on above: Order Comment: For [...] Performed By: #### T YPEC #### U [facility] (DEFAULT) [address] [place] [address] Piperacillin+Tazobactam [Susceptibility] 8 ug/mL Invalid Interpretation Code [facility] Comment on above: Order Comment: For [...] ? Performed By: #### T YPEC #### [facility] (DEFAULT) [address] [place] [address] Trimethoprim+Sulfametho xazole [Susceptibility] <= Invalid Interpretation Code [facility] Comment on above: Order Comment: For [...] ? Performed By: #### T YPEC #### [facility] (DEFAULT) [address] [place] [address] CBC,PLATELETSon 08-07-2024 Erythrocyte distribution width (RBC) [Ratio] 13.9 % 10.8 - 14.9 % [facility] Hematocrit (Bld) [Volume fraction] 43.1 % 34.9 - 44.3 % [facility] Hemoglobin (Bld) [Mass/Vol] 13.7 g/dL 11.4 - 15.2 g/dL [facility] Interpretation and review of laboratory results Abnormal [facility] MCH (RBC) [Entitic mass] 29.6 pg 25.9 - 33.9 pg [facility] MCHC (RBC) [Mass/Vol] 31.8 g/dL 31.4 - 35.9 g/dL [facility] MCV (RBC) [Entitic vol] 93.1 fL 79.6 - 97.7 fL [facility] Platelet mean volume (Bld) [Entitic vol] 11.1 fL 8.5 - 12.2 fL [facility] Platelets (Bld) [#/Vol] 214 10*3/uL 150 - 393 K/uL [facility] RBC (d) [#/Vol] 4.63 10*6/uL [facility] W[facility] (Bld[facility] [#/Vol] 11.3 10*3/uL High 3.99 - 11.19 K/uL [facility] CHEM 7 (LYTES,BUN,CREA,GLUC) on 08-07-2024 Anion gap [Moles/Vol] 13 mmol/L 7 - 17 mmol/L [facility] Chloride [Moles/Vol] 105 mmol/L 98 - 10 8 mmol/L [facility] CO2 [Moles/Vol] 28 mmol/L 21 - 31 mmol/L [facility] Creatinine [Mass/Vol] 1.19 mg/dL 0.50 - 1.20 mg/dL [facility] eGFR, CKD-EPI, Female 47 Low - PINF [facility] Glucose [Mass/Vol] 90 mg/dL 70 - 179 mg/dL [facility] Interpretation and review of laboratory results Abnormal [facility] Osmolality Calc [Osmolality] 304 [facility] Potassium [Moles/Vol] 4.2 mmol/L 3.5 - 5.0 mmol/L [facility] Sodium [Moles/Vol] 142 mmol/L 135 - 145 mmol/L [facility] Urea nitrogen [Mass/Vol] 34 mg/dL High 7 - 25 mg/dL [facility] Urea nitrogen/Creatinine [Mass ratio] 29 mg/mg [facility] GLUCOSE POCon 08-07-2024 Glucose [Mass/Vol] 185 mg/dL High 70 - 179 mg/dL [facility] Interpretation and review of laboratory results Abnormal [facility] POC Sample Type CAPBL [facility] Glucose [Mass/Vol] 106 mg/dL 70 - 179 mg/dL [facility] POC Sample Type [facility] Glucose [Mass/Vol] 104 mg/dL 70 - 179 mg/dL [facility] POC Sample Type CAPBL [facility] MAGNESIUMon 08-07-2024 Interpretation and review of laboratory results Normal [facility] Magnesium [Mass/Vol] 1.8 mg/dL 1.6 - 2 .6 mg/dL [facility] No Panel Informationon 08-07 [facility] CBC,PLATELETSon 08-06-2024 Hematocrit (Bld) [Volume fraction] 43.1 % Normal 34.9-44.3 [facility] Comment on above: Performed By: #### X M #### [facility] (DEFAULT) [address] [place] [address] Hemoglobin (Bld) [Mass/Vol] 13.7 g/dL Normal 11.4-15.2 [facility] Comment on above: Performed By: #### X M #### [facility] (DEFAULT) [address] [place] [address] MCV (RBC) [Entitic vol] 93.1 fL Normal 79.6-97.7 O [facility] Comment on above: Performed By: #### X M #### [facility] (DEFAULT) [address] [place] [address] 68866 Mean Cell Hgb 29.6 pg Normal 25.9-33.9 [facility] Comment on above: Performed By: #### X M #### [facility] (DEFAULT) [address] [place] [address] 49054 Mean Cell Hgb Conc 31.8 g/dL Normal 31.4-35.9 [facility] Comment on above: Performed By: #### X M #### [facility] (DEFAULT) [address] [place] [address] 90751 Platelet mean volume (Bld) [Entitic vol] 11.1 fL Normal 8.5-12.2 [facility] Comment on above: Performed By: #### X M #### [facility] (DEFAULT) [address] [place] [address] 89452 Platelets (Bld) [#/Vol] 214 10*3/uL Normal 150-393 [facility] Comment on above: Performed By: #### X M #### [facility] (DEFAULT) [address] [place] [address] 26355 RBC (Bld) [#/Vol] 4.63 10*6/uL Normal 3.91-5.04 [facility] Comment on above: Performed By: #### X M #### [facility] (DEFAULT) [address] [place] [address] 25492 RBC Distribution 13.9 % Normal 10.8-14.9 [facility] Comment on above: Performed By: #### X M #### [facility] (DEFAULT) [address] [place] [address] 73613 WBC (Bld) [#/Vol] 11.30 10*3/uL High 3.99-11.19 [facility] Comment on above: Performed By: #### X M #### [facility] (DEFAULT) [address] [place] [address] 93300 Erythrocyte distribution width (RBC) [Ratio] 13.9 % 10.8 - 14.9 % [facility] Hematocrit (Bld) [Volume fraction] 44 % 34.9 - 44.3 % [facility] Hemoglobin (Bld) [Mass/Vol] 13.9 g/dL 11.4 - 15.2 g/dL [facility] Interpretation and review of laboratory results Abnormal [facility] MCH (RBC) [Entitic mass] 29.1 pg 25.9 - 33.9 pg [facility] MCHC (RBC) [Mass/Vol] 31.6 g/dL 31.4 - 35.9 g/dL [facility] MCV (RBC) [Entitic vol] 92.2 fL 79.6 - 97.7 fL [facility] Platelet mean volume (Bld) [Entitic vol] 10.7 fL 8.5 - 12.2 fL [facility] Platelets (Bld) [#/Vol] 216 10*3/uL 150 - 393 K/uL [facility] RBC (Bld) [#/Vol] 4.77 10*6/uL [facility] WBC (Bld) [#/Vol] 12.14 10*3/uL High 3.99 - 11.19 K/uL [facility] CHEM 7 (LYTES,BUN,CREA,GLUC) on 08-06-2024 Anion gap [Moles/Vol] 13 mmol/L Normal 7-17 [facility] Comment on above: Performed By: #### Jaiden NGUYEN CHM7 ####[facility] (DEFAULT)[address] [place] [address] Chloride [Moles/Vol] 105 mmol/L Normal 98-108 [facility] Comment on above: Performed By: #### Jaiden NGUYEN CHM7 ####[facility] (DEFAULT)[address] [place] [address] CO2 [Moles/Vol] 28 mmol/L Normal 21-31 [facility] Comment on above: Performed By: #### Jaiden NGUYEN CHM7 ####[facility] (DEFAULT)[address] [place] [address] Creatinine [Mass/Vol] 1.19 mg/dL Normal 0.50-1.20 [facility] Comment on above: Performed By: #### Jaiden NGUYEN CHM7 ####[facility] (DEFAULT)[address] [place] [address] GFR/1.73 sq M.predicted among non-blacks MDRD (S/P/Bld) [Vol rate/Area] 47 mL/min/{1.73_m2} Low >=60 [facility] Comment on above: Result Comment: Repo rted eGFR is based on the CKD-EPI 2020 equation using creatinine, age, and sex. Performed By: #### HEYDI PALACIOS7 ####[facility] (DEFAULT)[address] [place] [address] Glucose [Mass/Vol] 90 mg/dL Normal Nonfastin -179 mg/dL; Fastin-99 [facility] Comment on above: Performed By: #### HEYDI PALACIOS7 ####[facility] [facility] (DEFAULT)[address] [place] [address] Osmolality [Osmolality] 304 mosm/kg Normal 278-305 [facility] Comment on above: Performed By: #### HEYDI PALACIOS7 ####[facility] (DEFAULT)[address] [place] [address] Potassium [Moles/Vol] 4.2 mmol/L Normal 3.5-5.0 [facility] Comment on above: Performed By: #### CAMERON PALACIOS ####[facility] (DEFAULT)[address] [place] [address] Sodium [Moles/Vol] 142 mmol/L Normal 135-145 [facility] Comment on above: Performed By: #### HEYDI PALACIOS7 ####[facility] (DEFAULT)[address] [place] [address] Urea nitrogen [Mass/Vol] 34 mg/dL High 7-25 [facility] Comment on above: Performed By: #### HEYDI PALACIOS7 ####[facility] (DEFAULT)[address] [place] [address] Urea nitrogen/Creatinine [Mass ratio] 29 mg/mg Normal [facility] Comment on above: Performed By: #### HEYDI PALACIOS7 ####[facility] (DEFAULT)[address] [place] [address] Anion gap [Moles/Vol] 14 mmol/L 7 - 17 mmol/L [facility] Chloride [Moles/Vol] 107 mmol/L 98 - 10 8 mmol/L [facility] CO2 [Moles/Vol] 27 mmol/L 21 - 31 mmol/L [facility] Creatinine [Mass/Vol] 1.19 mg/dL 0.50 - 1.20 mg/dL [facility] eGFR, CKD-EPI, Female 47 Low - PINF [facility] Glucose [Mass/Vol] 88 mg/dL 70 - 179 mg/dL [facility] Interpretation and review of laboratory results Abnormal [facility] Osmolality Calc [Osmolality] 307 High [facility] Potassium [Moles/Vol] 3.9 mmol/L 3.5 - 5.0 mmol/L [facility] Sodium [Moles/Vol] 144 mmol/L 135 - 145 mmol/L [facility] Urea nitrogen [Mass/Vol] 34 mg/dL High 7 - 25 mg/dL [facility] Urea nitrogen/Creatinine [Mass ratio] 29 mg/mg [facility] GLUCOSE POCon 08-06-2024 Glucose [Mass/Vol] 166 mg/dL 70 - 179 mg/dL [facility] Glucose [Mass/Vol] 106 mg/dL 70 - 179 mg/dL [facility] Glucose [Mass/Vol] 100 mg/dL 70 - 179 mg/dL [facility] POC Sample Type VENO [facility] Glucose [Mass/Vol] 219 mg/dL High 70 - 179 mg/dL [facility] Interpretation and review of laboratory results Abnormal [facility] Glucose [Mass/Vol] 249 mg/dL High 70 - 179 mg/dL [facility] Glucose [Mass/Vol] 178 mg/dL 70 - 179 mg/dL [facility] Glucose [Mass/Vol] 194 mg/dL High 70 - 179 mg/dL [facility] Glucose [Mass/Vol] 93 mg/dL 70 - 179 mg/dL [facility], WHOLE BLOOD Ordered By: Zuleika Blunt on 08-06-2024 Calcium.ionized (Bld) [Moles/Vol] 4.72 mg/dL 4.60 - 5.30 mg/dL [facility] Interpretation and review of laboratory results Normal [facility] MAGNESIUMon 08-06-2024 Magnesium [Mass/Vol] 1.8 mg/dL Normal 1.6-2.6 [facility] Comment on above: Performed By: #### M [facility] ####[facility] (DEFAULT)[address] [place] [address] Magnesium [Mass/Vol] 2.4 mg/dL 1.6 - 2 .6 mg/dL [facility] No Panel Informationon 08-06 POC Sample Type [facility] Interpretation and review of laboratory results Abnormal [facility] POC Sample Type [facility] Interpretation and review of laboratory results Normal [facility] PHOSPHATE, INORGANICon 08-06 Phosphate [Mass/Vol] 3.2 mg/dL 2.2 - 4 .6 mg/dL [facility] RF videography Hypopharynx a nd Esophagus Views W liquid and paste contrast PO during swallowingon 08-06-2024 RADIOLOGY RADIOLOGY [facility] Radiology Study observation (narrative) [facility] RF videography Hypopharynx a nd Esophagus Views W liquid and paste contrast PO during swallowingOrdered By: Gerry Resendez on 08-06-2024 [facility] Work Phone: SPEECH MODIFIED BARIUM SWALL OWon 08-06-2024 [facility] XR FLUORO MODIFIED BARIUM SW ALLOW WITH [...] for specific therapeutic recommendations, please see the freight forwarder report of the speech pathologist. Examination performed by ARCADIO Nicole, under the direct supervision of Gerry Resendez M.D., who was immediately available on site during the examination. I personally viewed and interpreted these images and I have reviewed and approved this report. Normal [facility] CBC,PLATELETSon 08-05-2024 Hematocrit (Bld) [Volume fraction] 44.0 % Normal 34.9-44.3 [facility] Comment on above: Performed By: #### B LDCULT #### [facility] (DEFAULT) [address] [address] Hemoglobin (Bld) [Mass/Vol] 13.9 g/dL Normal 11.4-15.2 [facility] Comment on above: Performed By: #### B LDCULT #### [facility] (DEFAULT) [address] [address] MCV (RBC) [Entitic vol] 92.2 fL Normal 79.6-97.7 O [facility] Comment on above: Performed By: #### B LDCULT #### [facility] (DEFAULT) [address] [address] Mean Cell Hgb 29.1 pg Normal 25.9-33.9 [facility] Comment on above: Performed By: #### B LDCULT #### [facility] (DEFAULT) [address] [place] [address] 23648 Mean Cell Hgb Conc 31.6 g/dL Normal 31.4-35.9 [facility] Comment on above: Performed By: #### B LDCULT #### [facility] (DEFAULT) [address] [place] [address] 88024 Platelet mean volume (Bld) [Entitic vol] 10.7 fL Normal 8.5-12.2 [facility] Comment on above: Performed By: #### B LDCULT #### [facility] (DEFAULT) [address] [place] [address] 43450 Platelets (Bld) [#/Vol] 216 10*3/uL Normal 150-393 [facility] Comment on above: Performed By: #### B LDCULT #### [facility] (DEFAULT) [address] [place] [address] 95562 RBC (Bld) [#/Vol] 4.77 10*6/uL Normal 3.91-5.04 [facility] Comment on above: Performed By: #### B LDCULT #### [facility] (DEFAULT) [address] [place] [address] 18733 RBC Distribution 13.9 % Normal 10.8-14.9 [facility] Comment on above: Performed By: #### B LDCULT #### [facility] (DEFAULT) [address] [place] [address] 52269 WBC (Bld) [#/Vol] 12.14 10*3/uL High 3.99-11.19 [facility] Comment on above: Performed By: #### B LDCULT #### [facility] (DEFAULT) [address] [place] [address] 55272 Erythrocyte distribution width (RBC) [Ratio] 13.9 % 10.8 - 14.9 % [facility] Hematocrit (Bld) [Volume fraction] 39.6 % 34.9 - 44.3 % [facility] Hemoglobin (Bld) [Mass/Vol] 12.6 g/dL 11.4 - 15.2 g/dL [facility] Interpretation and review of laboratory results Normal [facility] MCH (RBC) [Entitic mass] 29.3 pg 25.9 - 33.9 pg [facility] MCHC (RBC) [Mass/Vol] 31.8 g/dL 31.4 - 35.9 g/dL [facility] MCV (RBC) [Entitic vol] 92.1 fL 79.6 - 97.7 fL [facility] Platelet mean volume (Bld) [Entitic vol] 10.7 fL 8.5 - 12.2 fL [facility] Platelets (Bld) [#/Vol] 198 10*3/uL 150 - 393 K/uL [facility] RBC (Bld) [#/Vol] 4.3 10*6/uL [facility] WBC (Bld) [#/Vol] 10.61 10*3/uL 3.99 - 11.19 K/uL [facility] Hematocrit (Bld) [Volume fraction] 39.6 % Normal 34.9-44.3 [facility] Comment on above: Performed By: #### [place] [facility] ####[facility] (DEFAULT)[address] [place] [address] Hemoglobin (Bld) [Mass/Vol] 12.6 g/dL Normal 11.4-15.2 [facility] Comment on above: Performed By: #### [place] [facility] ####[facility] (DEFAULT)[address] [place] [address] MCV (RBC) [Entitic vol] 92.1 fL Normal 79.6-97.7 [facility] Comment on above: Performed By: #### [place] [facility] ####[facility] (DEFAULT)[address] [place] [address] Mean Cell Hgb 29.3 pg Normal 25.9-33.9 [facility] Comment on above: Performed By: #### H EMOGC ####[facility] (DEFAULT)[address] [place] [address] Mean Cell Hgb Conc 31.8 g/dL Normal 31.4-35.9 [facility] Comment on above: Performed By: #### H EMOGC ####[facility] (DEFAULT)[address] [place] [address] Platelet mean volume (Bld) [Entitic vol] 10.7 fL Normal 8.5-12.2 [facility] Comment on above: Performed By: #### H EMOGC ####[facility] (DEFAULT)[address] [place] [address] Platelets (Bld) [#/Vol] 198 10*3/uL Normal 150-393 [facility] Comment on above: Performed By: #### H EMOGC ####[facility] (DEFAULT)[address] [place] [address] RBC (Bld) [#/Vol] 4.30 10*6/uL Normal 3.91-5.04 [facility] Comment on above: Performed By: #### H EMOGC ####[facility] (DEFAULT)[address] [place] [address] RBC Distribution 13.9 % Normal 10.8-14.9 [facility] Comment on above: Performed By: #### H EMOGC ####[facility] (DEFAULT)[address] [place] [address] WBC (Bld) [#/Vol] 10.61 10*3/uL Normal 3.99-11.19 [facility] Comment on above: Performed By: #### H EMOGC ####[facility] (DEFAULT)[address] [place] [address]77 CHEM 7 (LYTES,BUN,CREA,GLUC) on 08-05-2024 Anion gap [Moles/Vol] 14 mmol/L Normal 7-17 [facility] Comment on above: Performed By: #### S URGP #### [facility] (DEFAULT) [address] [place] [address] 18337 Chloride [Moles/Vol] 107 mmol/L Normal 98-108 [facility] Comment on above: Performed By: #### S URGP #### [facility] (DEFAULT) [address] [place] [address] 79687 CO2 [Moles/Vol] 27 mmol/L Normal 21-31 [facility] Comment on above: Performed By: #### S URGP #### [facility] (DEFAULT) [address] [place] [address] 37132 Creatinine [Mass/Vol] 1.19 mg/dL Normal 0.50-1.20 [facility] Comment on above: Performed By: #### S URGP #### [facility] (DEFAULT) [address] [place] [address] 99458 GFR/1.73 sq M.predicted among non-blacks MDRD (S/P/Bld) [Vol rate/Area] 47 mL/min/{1.73_m2} Low >=60 [facility] Comment on above: Result Comment: Repo rted eGFR is based on the CKD-EPI 2020 equation using creatinine, age, and sex. Performed By: #### S URGP #### [facility] (DEFAULT) [address] [place] [address] 07231 Glucose [Mass/Vol] 88 mg/dL Normal Nonfastin -179 mg/dL; Fastin-99 [facility] Comment on above: Performed By: #### S URGP #### [facility] (DEFAULT) [address] [place] [address]224 Osmolality [Osmolality] 307 mosm/kg High 278-305 [facility] Comment on above: Performed By: #### S URGP #### [facility] (DEFAULT) [address] [place] [address] Potassium [Moles/Vol] 3.9 mmol/L Normal 3.5-5.0 [facility] Comment on above: Performed By: #### S URGP #### [facility] (DEFAULT) [address] [place] [address] Sodium [Moles/Vol] 144 mmol/L Normal 135-145 [facility] Comment on above: Performed By: #### S URGP #### [facility] (DEFAULT) [address] [place] [address] 76900 Urea nitrogen [Mass/Vol] 34 mg/dL High 7-25 [facility] Comment on above: Performed By: #### S URGP #### [facility] (DEFAULT) [address] [place] [address] 06242 Urea nitrogen/Creatinine [Mass ratio] 29 mg/mg Normal [facility] Comment on above: Performed By: #### S URGP #### [facility] (DEFAULT) [address] [place] [address] 809[address] Anion gap [Moles/Vol] 14 mmol/L 7 - 17 mmol/L [facility] Chloride [Moles/Vol] 108 mmol/L 98 - 10 8 mmol/L [facility] CO2 [Moles/Vol] 25 mmol/L 21 - 31 mmol/L [facility] Creatinine [Mass/Vol] 1.45 mg/dL High 0.50 - 1.20 mg/dL [facility] eGFR, CKD-EPI, Female 37 Low - PINF [facility] Glucose [Mass/Vol] 242 mg/dL High 70 - 179 mg/dL [facility] Interpretation and review of laboratory results Abnormal [facility] Osmolality Calc [Osmolality] 315 High [facility] Potassium [Moles/Vol] 3.8 mmol/L 3.5 - 5.0 mmol/L [facility] Sodium [Moles/Vol] 143 mmol/L 135 - 145 mmol/L [facility] Urea nitrogen [Mass/Vol] 35 mg/dL High 7 - 25 mg/dL [facility] Urea nitrogen/Creatinine [Mass ratio] 24 mg/mg [facility] Anion gap [Moles/Vol] 14 mmol/L Normal 7-17 [facility] Comment on above: Performed By: #### X M #### [facility] (DEFAULT) [address] [address] Chloride [Moles/Vol] 108 mmol/L Normal 98-108 [facility] Comment on above: Performed By: #### X M #### [facility] (DEFAULT) [address] [address] CO2 [Moles/Vol] 25 mmol/L Normal 21-31 [facility] Comment on above: Performed By: #### X M #### [facility] (DEFAULT) [address] [address] Creatinine [Mass/Vol] 1.45 mg/dL High 0.50-1.20 [facility] Comment on above: Performed By: #### X M #### [facility] (DEFAULT) [address] [address] GFR/1.73 sq M.predicted among non-blacks MDRD (S/P/Bld) [Vol rate/Area] 37 mL/min/{1.73_m2} Low >=60 [facility] Comment on above: Result Comment: Repo rted eGFR is based on the CKD-EPI 2020 equation using creatinine, age, and sex. Performed By: #### X M #### [facility] (DEFAULT) [address] [address] Glucose [Mass/Vol] 242 mg/dL High Nonfastin -179 mg/dL; Fastin-99 [facility] Comment on above: Performed By: #### X M #### [facility] (DEFAULT) [address] [place] [address] Osmolality [Osmolality] 315 mosm/kg High 278-305 [facility] Comment on above: Performed By: #### X M #### [facility] (DEFAULT) [address] [place] [address] Potassium [Moles/Vol] 3.8 mmol/L Normal 3.5-5.0 [facility] Comment on above: Performed By: #### X M #### [facility] (DEFAULT) [address] [place] [address] Sodium [Moles/Vol] 143 mmol/L Normal 135-145 [facility] Comment on above: Performed By: #### X M #### [facility] (DEFAULT) [address] [place] [address] 9[address] Urea nitrogen [Mass/Vol] 35 mg/dL High 7-25 [facility] Comment on above: Performed By: #### X M #### [facility] (DEFAULT) [address] [place] [address] Urea nitrogen/Creatinine [Mass ratio] 24 mg/mg Normal [facility] Comment on above: Performed By: #### X M #### [facility] (DEFAULT) [address] [place] [address] Cardiac echo study Procedure Ordered By: Ezequiel Figueroa on 08-05-2024 Ao ASC index 1.56 cm/m2 [facility] Work Phone: [phone] Ao peak fidel 1.23 m/s [facility] Work Phone: [phone] Ao SOV index 1.56 cm/m2 [facility] Work Phone: [phone] Ao STJ index 1.36 cm/m2 [facility] Work Phone: [phone] Ao VTI 24.81 cm [facility] Work Phone: [phone] Ascending aorta 2.97 cm [facility] Work Phone: [phone] AV LVOT peak gradient 4 mmHg [facility] Work Phone: [phone] AV mean gradient 4 mmHg [facility] Work Phone: [phone] AV peak gradient 6 mmHG [facility] Work Phone: [phone] AV valve area 2.72 cm2 [facility] Work Phone: [phone] AV Velocity Ratio 0.[address] [facility] Work Phone: [phone] MARKUS (continuity Vmax) 2.55 cm2 [facility] Work Phone: [phone] MARKUS (continuity VTI) 2.72 cm2 [facility] Work Phone: [phone] MARKUS index (continuity Vmax) 1.34 m/s [facility] Work Phone: [phone] MARKUS index (continuity VTI) 1.43 cm2/m2 [facility] Work Phone: [phone] Avg e' pk fidel 0.09 m/s [facility] Work Phone: [phone] Body surface area Derived from formula 1.9 m2 [facility] Work Phone: [phone] BP EF 55 % [facility] Work Phone: [phone] DI (Vmax) 0.8 [facility] Work Phone: [phone] DI (VTI) 0.86 m/2 [facility] Work Phone: [phone] e' lateral pk fidel 0.0845 [facility]: [phone] e' lateral pk fidel 0.08 m/s [facility] Work Phone: [phone] e' septal pk fidel 0.0953 m/s [facility] Work Phone: [phone] e' septal pk fidel 0.1 m/s [facility] Work Phone: [phone] EF SP 2CH 56 [facility] Work Phone: [phone] EF SP 4CH 51 [facility] Work Phone: [phone] EST RAP 3 mmHg [facility] Work Phone: [phone] EST RVSP 29 mmHg [facility] Work Phone: [phone] FS 31 % [facility] Work Phone: [phone] IVC ostium 1.64 cm [facility] Work Phone: [phone] IVS 1.14 cm [facility] Work Phone: [phone] LA area 4CH 29.07 cm2 [facility] Work Phone: [phone] LA ESV BP (MOD) [facility]: [phone] LA ESV BP (MOD) index 45 mL/m2 [facility] Work Phone: [phone] LA ESV SP 2CH (MOD) 81 mL [facility] Work Phone: [phone] LA ESV SP 4CH (MOD) 93 mL [facility] Work Phone: [phone] LV EDV BP 88 mL [facility] Work Phone: [phone] LV EDV SP 2CH 85 mL [facility] Work Phone: [phone] LV EDV SP 4CH 86 mL [facility] Work Phone: [phone] LV ESV BP 40 mL [facility] Work Phone: [phone] LV ESV SP 2CH 37 mL [facility] Work Phone: [phone] LV ESV SP 4CH 42 mL [facility] Work Phone: [phone] LV mass 146.48 g [facility] Work Phone: [phone] LV Mass Index 77.1 g/m2 [facility] Work Phone: [phone] LV RWT 0.56 [facility] Work Phone: [phone] LV stroke volume BP (ml) 48 mL [facility] Work Phone: [phone] LV stroke volume index BP 25.26 mL/m2 [facility] Work Phone: [phone] LVIDD 3.93 cm [facility] Work Phone: [phone] LVIDS 2.7 cm [facility] Work Phone: [phone] LVOT area 3.17 cm2 [facility] Work Phone: [phone] LVOT diameter 2.01 cm [facility] Work Phone: [phone] LVOT peak fidel 0.99 m/s [facility] Work Phone: [phone] LVOT peak VTI 21.3 cm [facility] Work Phone: [phone] LVOT stroke volume 68 cm3 [facility] Work Phone: [phone] LVOT stroke volume index 35.55 ml/m2 [facility] Work Phone: [phone] MV mean gradient 3 mmHg [facility] Work Phone: [phone] MV peak gradient 6 mmHg [facility] Work Phone: [phone] MV valve area by continuity eq 2.61 cm2 [facility] Work Phone: [phone] MV VTI 25.92 cm [facility] Work Phone: [phone] MVA (continuity VTI) 2.6 cm [facility] Work Phone: [phone] OSU AV VTI RATIO PRE STRESS 0.86 [facility] Work Phone: [facility] ECHO LV BIPLANE SYSTOLIC VOLUME INDEX 21.05 mL/m2 [facility] Work Phone: [facility] ECHO LV BP DIASTOLIC VOLUME INDEX 46.32 [facility]/m2 [facility] [facility] Work Phone: PV [facility]: [facility] 6 [facility] Work Phone: PV PK FIDEL 1.23 m/s [facility] Work Phone: PW 1.11 cm [facility] Work Phone: RA area 4CH (MOD) 22.74 cm2 [facility]: RA vol index 4CH (MOD) 36.32 mL/m2 O [facility] Work Phone: Right atrium volume 4 chamber method of disks 69 [facility] Work Phone: RV Area diastolic 17.[address] [facility] Work Phone: RV Area systolic 11.9 cm2 [facility] Work Phone: RV basal diam 4.56 cm [facility] Work Phone: RV Fractional area change 32 % [facility] Work Phone: RV long diam 6.91 cm [facility] Work Phone: RV mid diam 2.91 cm [facility] Work Phone: RV S' 12.81 cm/s [facility] Work Phone: RVOT peak gradient 5 mmHg [facility] Work Phone: RVOT peak fidel 1.07 m/s [facility] Work Phone: [phone] RVOT peak VTI 20.1 cm [facility] Work Phone: [phone] Sinus 2.97 cm [facility] Work Phone: [phone] STJ 2.58 cm [facility] Work Phone: [phone] Stroke Volume 68 cm/mL [facility] Work Phone: [phone] Stroke volume index 36 [facility] Work Phone: [phone] TAPSE 2.08 cm [facility] Work Phone: [phone] TR pk grad 26 mmHg [facility] Work Phone: [phone] TR pk fidel 2.53 m/s [facility] Work Phone: [phone] [facility] Work Phone: Cardiac echo study Procedure on 08-05-2024 [facility] Radiology Study observation (narrative) [facility] ECHOCARDIOGRAMon 08-05-2024 Echocardiography ? No [...] from the original result were not included. [facility] Facility [facility] Patient Information Patient Name Lindsay Acuna [...] Role Read Date Ezequiel Figueroa DO Echo [place] 08/05/2024 Left Heart Measurements LV - Systole [...] di (more content not included)... Normal [facility] GLUCOSE POCon 08-05-2024 Glucose [Mass/Vol] 228 mg/dL High 70 - 179 mg/dL [facility] Interpretation and review of laboratory results Abnormal [facility] POC Sample Type CAPBL [facility] IONIZED CALCIUM, WHOLE BLOOD on 08-05-2024 ICA 4.72 mg/dL Normal 4.60-5.30 [facility] Comment on above: Performed By: #### S URGP #### [facility] (DEFAULT) [address] [place] [address] ICA 4.69 mg/dL Normal 4.60-5.30 [facility] Comment on above: Performed By: #### S URGP #### [facility] (DEFAULT) [address] [place] [address] 33462 IONIZED CALCIUM, WHOLE BLOOD Ordered By: Jairo Layton on 08-05-2024 Calcium.ionized (Bld) [Moles/Vol] 4.69 mg/dL 4.60 - 5.30 mg/dL [facility] Interpretation and review of laboratory results Normal [facility] MAGNESIUMon 08-05-2024 Magnesium [Mass/Vol] 2.4 mg/dL Normal 1.6-2.6 [facility] Comment on above: Performed By: #### S URGP #### [facility] (DEFAULT) [address] [place] [address] 06843 Magnesium [Mass/Vol] 1.8 mg/dL 1.6 - 2 .6 mg/dL [facility] Magnesium [Mass/Vol] 1.8 mg/dL Normal 1.6-2.6 [facility] Comment on above: Performed By: #### X M #### [facility] (DEFAULT) [address] [place] [address] 86513 No Panel Informationon 08-05 Interpretation and review of laboratory results Normal [facility] PHOSPHATE, INORGANICon 08-05 Phosphorous 3.2 mg/dL Normal 2.2-4.6 [facility] Comment on above: Performed By: #### S URGP #### [facility] (DEFAULT) [address] [place] [address] 47305 Phosphate [Mass/Vol] 2.7 mg/dL 2.2 - 4 .6 mg/dL [facility] Phosphorous 2.7 mg/dL Normal 2.2-4.6 [facility] Comment on above: Performed By: #### X M #### [facility] (DEFAULT) [address] [place] [address] 34048 [facility] FA[facility] AGOrde red By: Madhavi Mcelroy on 08-05-2024 Interpretation and review of laboratory results Abnormal [facility] vWf Ag actual/normal IA (PPP) [Relative mass conc] 230 % High 50 - 180 % [facility] CBC,PLATELETSon 08-04-2024 Erythrocyte distribution width (RBC) [Ratio] 13.7 % 10.8 - 14.9 % [facility] Hematocrit (Bld) [Volume fraction] 40.8 % 34.9 - 44.3 % [facility] Hemoglobin (Bld) [Mass/Vol] 12.7 g/dL 11.4 - 15.2 g/dL [facility] Interpretation and review of laboratory results Abnormal [facility] MCH (RBC) [Entitic mass] 28.7 pg 25.9 - 33.9 pg [facility] MCHC (RBC) [Mass/Vol] 31.1 g/dL Low 31.4 - 35.9 g/dL [facility] MCV (RBC) [Entitic vol] 92.1 fL 79.6 - 97.7 fL [facility] Platelet mean volume (Bld) [Entitic vol] 10.8 fL 8.5 - 12.2 fL [facility] Platelets (Bld) [#/Vol] 228 10*3/uL 150 - 393 K/uL [facility] RBC (Bld) [#/Vol] 4.43 10*6/uL [facility] WBC (Bld) [#/Vol] 11.41 10*3/uL High 3.99 - 11.19 K/uL [facility] Hematocrit (Bld) [Volume fraction] 40.8 % Normal 34.9-44.3 [facility] Comment on above: Performed By: #### [place] [facility] #### [facility] (DEFAULT) [address] [place] [address] 58008 Hemoglobin (Bld) [Mass/Vol] 12.7 g/dL Normal 11.4-15.2 [facility] Comment on above: Performed By: #### [facility] [place] [place] #### [facility] (DEFAULT) [address] [place] [address] 11187 MCV (RBC) [Entitic vol] 92.1 fL Normal 79.6-97.7 O [facility] Comment on above: Performed By: #### H EMOGC #### U [facility] (DEFAULT) [address] [place] [address] 70588 Mean Cell Hgb 28.7 pg Normal 25.9-33.9 [facility] Comment on above: Performed By: #### H EMOGC #### [facility] (DEFAULT) [address] [place] [address] 50214 Mean Cell Hgb Conc 31.1 g/dL Low 31.4-35.9 [facility] Comment on above: Performed By: #### H EMOGC #### [facility] (DEFAULT) [address] [place] [address] 11128 Platelet mean volume (Bld) [Entitic vol] 10.8 fL Normal 8.5-12.2 [facility] Comment on above: Performed By: #### H EMOGC #### [facility] (DEFAULT) [address] [place] [address] 45877 Platelets (Bld) [#/Vol] 228 10*3/uL Normal 150-393 [facility] Comment on above: Performed By: #### H EMOGC #### [facility] (DEFAULT) [address] [place] [address] 04250 RBC (Bld) [#/Vol] 4.43 10*6/uL Normal 3.91-5.04 [facility] Comment on above: Performed By: #### H EMOGC #### [facility] (DEFAULT) [address] [place] [address] 65783 RBC Distribution 13.7 % Normal 10.8-14.9 [facility] Comment on above: Performed By: #### H EMOGC #### U [facility] (DEFAULT) [address] [place] [address] 99519 WBC (Bld) [#/Vol] 11.41 10*3/uL High 3.99-11.19 [facility] Comment on above: Performed By: #### H EMO #### [facility] (DEFAULT) [address] [place] [id number] CHEM 7 (LYTES,BUN,CREA,GLUC) Ordered By: Lizette Canseco on 08-04-2024 Anion gap [Moles/Vol] 16 mmol/L 7 - 17 mmol/L [facility] Chloride [Moles/Vol] 109 mmol/L High 98 - 10 8 mmol/L [facility] CO2 [Moles/Vol] 24 mmol/L 21 - 31 mmol/L [facility] Creatinine [Mass/Vol] 1.47 mg/dL High 0.50 - 1.20 mg/dL [facility] eGFR, CKD-EPI, Female 36 Low - PINF [facility] Glucose [Mass/Vol] 181 mg/dL High 70 - 179 mg/dL [facility] Interpretation and review of laboratory results Abnormal [facility] Osmolality Calc [Osmolality] 312 High [facility] Potassium [Moles/Vol] 4 mmol/L 3.5 - 5.0 mmol/L [facility] Sodium [Moles/Vol] 145 mmol/L 135 - 145 mmol/L [facility] Urea nitrogen [Mass/Vol] 26 mg/dL High 7 - 25 mg/dL [facility] Urea nitrogen/Creatinine [Mass ratio] 18 mg/mg [facility] CHEM 7 (LYTES,BUN,CREA,GLUC) on 08-04-2024 Anion gap [Moles/Vol] 16 mmol/L Normal 7-17 [facility] Comment on above: Performed By: #### S URGP #### [facility] (DEFAULT) [address] [place] [address] Chloride [Moles/Vol] 109 mmol/L High 98-108 [facility] Comment on above: Performed By: #### S URGP #### [facility] (DEFAULT) [address] [place] [address] 97683 CO2 [Moles/Vol] 24 mmol/L Normal 21-31 [facility] Comment on above: Performed By: #### S URGP #### [facility] (DEFAULT) [address] [place] [address] 21258 Creatinine [Mass/Vol] 1.47 mg/dL High 0.50-1.20 [facility] Comment on above: Performed By: #### S URGP #### U [facility] (DEFAULT) [address] [place] [address] 38911 GFR/1.73 sq M.predicted among non-blacks MDRD (S/P/Bld) [Vol rate/Area] 36 mL/min/{1.73_m2} Low >=60 [facility] Comment on above: Result Comment: Repo rted eGFR is based on the CKD-EPI 2020 equation using creatinine, age, and sex. Performed By: #### S URGP #### [facility] (DEFAULT) [address] [place] [address] 43909 Glucose [Mass/Vol] 181 mg/dL High Nonfastin -179 mg/dL; Fastin-99 [facility] Comment on above: Performed By: #### S URGP #### U [facility] (DEFAULT) [address] [place] [address] 77245 Osmolality [Osmolality] 312 mosm/kg High 278-305 [facility] Comment on above: Performed By: #### S URGP #### [facility] (DEFAULT) [address] [place] [address] 39475 Potassium [Moles/Vol] 4.0 mmol/L Normal 3.5-5.0 [facility] Comment on above: Performed By: #### S URGP #### U [facility] (DEFAULT) [address] [place] [address] 86462 Sodium [Moles/Vol] 145 mmol/L Normal 135-145 [facility] Comment on above: Performed By: #### S URGP #### [facility] (DEFAULT) [address] [place] [address] Urea nitrogen [Mass/Vol] 26 mg/dL High 7-25 [facility] Comment on above: Performed By: #### S URGP #### [facility] (DEFAULT) [address] [place] [address] Urea nitrogen/Creatinine [Mass ratio] 18 mg/mg Normal [facility] Comment on above: Performed By: #### S URGP #### U [facility] (DEFAULT) [address] [place] [address] CT HEAD WITHOUT CONTRASTon 0 08-04-2024 CT [...] are clear. IMPRESSION: Stable exam. Normal [facility] CT Head WO contraston 2024 RADIOLOGY RADIOLOGY [facility] CT Head WO contrastOrdered B y: Chirag Mendenhall on 08-04-2024 [facility] Work Phone: GLUCOSE POCon 08-04-2024 Glucose [Mass/Vol] 227 mg/dL High 70 - 179 mg/dL [facility] Interpretation and review of laboratory results Abnormal [facility] POC Sample Type [facility] Glucose [Mass/Vol] 235 mg/dL High 70 - 179 mg/dL [facility] Interpretation and review of laboratory results Abnormal [facility]OC [facility] Glucose [Mass/Vol] 215 mg/dL High 70 - 179 mg/dL [facility] Interpretation and review of laboratory results Abnormal [facility] POC Sample Type CAPBL [facility] Glucose [Mass/Vol] 178 mg/dL 70 - 179 mg/dL [facility] Glucose [Mass/Vol] 157 mg/dL 70 - 179 mg/dL [facility] Glucose [Mass/Vol] 271 mg/dL High 70 - 179 mg/dL [facility] Glucose [Mass/Vol] 267 mg/dL High 70 - 179 mg/dL [facility] Glucose [Mass/Vol] 246 mg/dL High 70 - 179 mg/dL [facility] IONIZED CALCIUM, WHOLE BLOOD Ordered By: Laura Rodriguez on 08-04-2024 Calcium.ionized (Bld) [Moles/Vol] 4.8 mg/dL 4.60 - 5.30 mg/dL [facility] Interpretation and review of laboratory results Normal [facility] IONIZED CALCIUM, WHOLE BLOOD on 08-04-2024 ICA 4.80 mg/dL Normal 4.60-5.30 [facility] Comment on above: Performed By: #### T YPEC #### [facility] (DEFAULT) [address] [place] [address] 72840 MAGNESIUMon 08-04-2024 Magnesium [Mass/Vol] 1.9 mg/dL 1.6 - 2 .6 mg/dL [facility] Magnesium [Mass/Vol] 1.9 mg/dL Normal 1.6-2.6 [facility] Comment on above: Performed By: #### X M #### [facility] (DEFAULT) [address] [place] [address] 38270 No Panel Informationon 08-04 POC Sample Type CAPBL [facility] Interpretation and review of laboratory results Abnormal [facility] Interpretation and review of laboratory results Normal [facility] PHOSPHATE, INORGANICon 08-04 Phosphate [Mass/Vol] 2.8 mg/dL 2.2 - 4 .6 mg/dL [facility] Phosphorous 2.8 mg/dL Normal 2.2-4.6 [facility] Comment on above: Performed By: #### X M #### [facility] (DEFAULT) [address] [address] SODIUMon 08-04-2024 Interpretation and review of laboratory results Normal [facility] Sodium [Moles/Vol] 142 mmol/L 135 - 145 mmol/L [facility] Sodium [Moles/Vol] 142 mmol/L Normal 135-145 [facility] Comment on above: Order Comment: While on 3% Hypertonic Saline. Performed By: #### S URGP #### [facility] (DEFAULT) [address] [place] [address] 04622 Interpretation and review of laboratory results Normal [facility] Sodium [Moles/Vol] 141 mmol/L 135 - 145 mmol/L [facility] Sodium [Moles/Vol] 141 mmol/L Normal 135-145 [facility] Comment on above: Order Comment: 2 [...] bottle. Performed By: #### B LDCULT #### [facility] (DEFAULT) [address] [place] [address] 72042 Interpretation and review of laboratory results Normal [facility] Sodium [Moles/Vol] 143 mmol/L 135 - 145 mmol/L [facility] Sodium [Moles/Vol] 143 mmol/L Normal 135-145 [facility] Comment on above: Order Comment: While on 3% Hypertonic Saline. Performed By: #### [facility] #### [facility] (DEFAULT) [address] [place] [address] 53455 ABORH TYPE RECONFIRMATIONon 08-03-2024 ABO/RH(D) TYPE Negative [facility] ABO/RH(D) TYPE Negative Normal [facility] Comment on above: Performed By: #### T YPEC #### [facility] (DEFAULT) [address] [place] [address] 83843 CBC,PLATELETSon 08-03-2024 Erythrocyte distribution width (RBC) [Ratio] 13.2 % 10.8 - 14.9 % [facility] Hematocrit (Bld) [Volume fraction] 42.8 % 34.9 - 44.3 % [facility] Hemoglobin (Bld) [Mass/Vol] 13.5 g/dL 11.4 - 15.2 g/dL [facility] Interpretation and review of laboratory results Normal [facility] MCH (RBC) [Entitic mass] 29.2 pg 25.9 - 33.9 pg [facility] MCHC (RBC) [Mass/Vol] 31.5 g/dL 31.4 - 35.9 g/dL [facility] MCV (RBC) [Entitic vol] 92.4 fL 79.6 - 97.7 fL [facility] Platelet mean volume (Bld) [Entitic vol] 11.2 fL 8.5 - 12.2 fL [facility] Platelets (Bld) [#/Vol] 227 10*3/uL 150 - 393 K/uL [facility] RBC (Bld) [#/Vol] 4.63 10*6/uL [facility] WBC (Bld) [#/Vol] 8.43 10*3/uL 3.99 - 11.19 K/uL [facility] Hematocrit (Bld) [Volume fraction] 42.8 % Normal 34.9-44.3 [facility] Comment on above: Performed By: #### X M #### [facility] (DEFAULT) [address] [place] [address] 62280 Hemoglobin (Bld) [Mass/Vol] 13.5 g/dL Normal 11.4-15.2 [facility] Comment on above: Performed By: #### X M #### [facility] (DEFAULT) [address] [place] [address] 08965 MCV (RBC) [Entitic vol] 92.4 fL Normal 79.6-97.7 O [facility] Comment on above: Performed By: #### X M #### [facility] (DEFAULT) [address] [place] [address] 69876 Mean Cell Hgb 29.2 pg Normal 25.9-33.9 [facility] Comment on above: Performed By: #### X M #### [facility] (DEFAULT) [address] [place] [address] 66102 Mean Cell Hgb Conc 31.5 g/dL Normal 31.4-35.9 [facility] Comment on above: Performed By: #### X M #### [facility] (DEFAULT) [address] [place] [address] 79414 Platelet mean volume (Bld) [Entitic vol] 11.2 fL Normal 8.5-12.2 [facility] Comment on above: Performed By: #### X M #### [facility] (DEFAULT) [address] [place] [address] 96084 Platelets (Bld) [#/Vol] 227 10*3/uL Normal 150-393 [facility] Comment on above: Performed By: #### X M #### [facility] (DEFAULT) [address] [place] [address] 07421 RBC (Bld) [#/Vol] 4.63 10*6/uL Normal 3.91-5.04 [facility] Comment on above: Performed By: #### X M #### [facility] (DEFAULT) [address] [place] [address] 80572 RBC Distribution 13.2 % Normal 10.8-14.9 [facility] Comment on above: Performed By: #### X M #### [facility] (DEFAULT) [address] [place] [address] 52852 WBC (Bld) [#/Vol] 8.43 10*3/uL Normal 3.99-11.19 [facility] Comment on above: Performed By: #### X M #### [facility] (DEFAULT) [address] [place] [address] 01635 CHEM 7 (LYTES,BUN,CREA,GLUC) on 08-03-2024 Anion gap [Moles/Vol] 16 mmol/L 7 - 17 mmol/L [facility] Chloride [Moles/Vol] 103 mmol/L 98 - 10 8 mmol/L [facility] CO2 [Moles/Vol] 23 mmol/L 21 - 31 mmol/L [facility] Creatinine [Mass/Vol] 1.35 mg/dL High 0.50 - 1.20 mg/dL [facility] eGFR, CKD-EPI, Female 40 Low - PINF [facility] Glucose [Mass/Vol] 151 mg/dL 70 - 179 mg/dL [facility] Interpretation and review of laboratory results Abnormal [facility] Osmolality Calc [Osmolality] 295 [facility] Potassium [Moles/Vol] 4.3 mmol/L 3.5 - 5.0 mmol/L [facility] Sodium [Moles/Vol] 138 mmol/L 135 - 145 mmol/L [facility] Urea nitrogen [Mass/Vol] 18 mg/dL 7 - 25 mg/dL [facility] Urea nitrogen/Creatinine [Mass ratio] 13 mg/mg [facility] Anion gap [Moles/Vol] 16 mmol/L Normal 7-17 [facility] Comment on above: Performed By: #### S URGP #### [facility] (DEFAULT) [address] [place] [address] 84270 Chloride [Moles/Vol] 103 mmol/L Normal 98-108 [facility] Comment on above: Performed By: #### S URGP #### [facility] (DEFAULT) [address] [place] [address] 13718 CO2 [Moles/Vol] 23 mmol/L Normal 21-31 [facility] Comment on above: Performed By: #### S URGP #### [facility] (DEFAULT) [address] [place] [address] 82057 Creatinine [Mass/Vol] 1.35 mg/dL High 0.50-1.20 [facility] Comment on above: Performed By: #### S URGP #### [facility] (DEFAULT) [address] [place] [address] 67690 GFR/1.73 sq M.predicted among non-blacks MDRD (S/P/Bld) [Vol rate/Area] 40 mL/min/{1.73_m2} Low >=60 [facility] Comment on above: Result Comment: Repo rted eGFR is based on the CKD-EPI 2020 equation using creatinine, age, and sex. Performed By: #### S URGP #### [facility] (DEFAULT) [address] [place] [address] 63539 Glucose [Mass/Vol] 151 mg/dL Normal Nonfastin -179 mg/dL; Fastin-99 [facility] Comment on above: Performed By: #### S URGP #### [facility] (DEFAULT) [address] [place] [address] 85046 Osmolality [Osmolality] 295 mosm/kg Normal 278-305 [facility] Comment on above: Performed By: #### S URGP #### [facility] (DEFAULT) [address] [place] [address] 98615 Potassium [Moles/Vol] 4.3 mmol/L Normal 3.5-5.0 [facility] Comment on above: Result Comment: Spec imen slightly hemolyzed. Potassium results may be falsey elevated by more than 0.5 mmol/L. Consider recollection. Performed By: #### S URGP #### [facility] (DEFAULT) [address] [place] [address] 25400 Sodium [Moles/Vol] 138 mmol/L Normal 135-145 [facility] Comment on above: Performed By: #### S URGP #### [facility] (DEFAULT) [address] [place] [address] 12825 Urea nitrogen [Mass/Vol] 18 mg/dL Normal 7-25 [facility] Comment on above: Performed By: #### S URGP #### [facility] (DEFAULT) [address] [place] [address] 82756 Urea nitrogen/Creatinine [Mass ratio] 13 mg/mg Normal [facility] Comment on above: Performed By: #### S URGP #### U [facility] (DEFAULT) [address] [place] [address] CHEST WITH CONTRAST VASCU LAR TRAUMAon [...] reviewed and approved this report. Normal [facility] CT Cervical spine WO contras ton 08-03-2024 RADIOLOGY RADIOLOGY [facility] CT Cervical spine WO contras tOrdered By: Alissa Chun on 08-03-2024 [facility] Work Phone: CT Chest W contrast Seth RADIOLOGY RADIOLOGY [facility] CT Chest W contrast IVOrdere d By: Kayla Newell on 08-03-2024 [facility] Work Phone: CT HEAD WITHOUT CONTRASTon [...] the MRI from earlier today Normal [facility] CT Head WO contraston 2024 Radiology Study observation (narrative) U [facility] RADIOLOGY RADIOLOGY [facility] Radiology Study observation (narrative) [facility] ganglia hyperdensity concerning for hemorrhage. Normal [facility] CT Orbit WO contraston 08-03 RADIOLOGY RADIOLOGY [facility] CT SPINE CERVICAL WITHOUT CO NTRASTon 08-03-2024 [...] evidence of acute fractures identified Normal [facility] EXTRA MICROon 08-03-2024 [facility] GLUCOSE POCon 08-03-2024 Glucose [Mass/Vol] 161 mg/dL 70 - 179 mg/dL [facility] POC Sample Type CAPBL [facility] IONIZED CALCIUM, WHOLE BLOOD Ordered By: Alejandra Ness on 08-03-2024 Calcium.ionized (Bld) [Moles/Vol] 4.24 mg/dL Low 4.60 - 5.30 mg/dL [facility] Interpretation and review of laboratory results Abnormal [facility] IONIZED CALCIUM, WHOLE BLOOD on 08-03-2024 ICA 4.24 mg/dL Low 4.60-5.30 [facility] Comment on above: Performed By: #### [facility] #### [facility] (DEFAULT) [address] [place] [address] MAGNESIUMon 08-03-2024 Magnesium [Mass/Vol] 2.1 mg/dL 1.6 - 2 .6 mg/dL [facility] Magnesium [Mass/Vol] 2.1 mg/dL Normal 1.6-2.6 [facility] Comment on above: Performed By: #### S URGP #### [facility] (DEFAULT) [address] [place] [address] MR Brain WO contraston 08-03 RADIOLOGY RADIOLOGY [facility] Radiology Study observation (narrative) [facility] MR Cervical spine WO contras ton 08-03-2024 RADIOLOGY RADIOLOGY [facility] Radiology Study observation (narrative) [facility] MR Cervical spine WO contras tOrdered By: Kuldeep Tavares on 08-03-2024 [facility] Work Phone: MRI BRAIN WITHOUT CONTRASTon [...] 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 Normal [facility] MRI SPINE CERVICAL WITHOUT C ONTRASTon [...] reviewed and approved this report. Normal [facility] NT-PRO B-TYPE NATRIURETIC PE PTIDEon 08-03-2024 Interpretation and review of laboratory results Abnormal [facility] Natriuretic peptide.B prohormone N-Terminal IA [Mass/Vol] 1115 pg/mL High NINF - 540 pg/mL [facility] No Panel Informationon 08-03 RADIOLOGY RADIOLOGY [facility] Interpretation and review of laboratory results Normal [facility] No Panel InformationOrdered By: Richard Sánchez on 08-03-2024 [facility] Work Phone: PHOSPHATE, INORGANICon 08-03 Phosphate [Mass/Vol] 3.5 mg/dL 2.2 - 4 .6 mg/dL [facility] Phosphorous 3.5 mg/dL Normal 2.2-4.6 [facility] Comment on above: Performed By: #### S URGP #### [facility] (DEFAULT) [address] [place] [address] SCREEN: MRSA/MSSAOrdered By: Gail Collado on 08-03-2024 Interpretation and review of laboratory results Normal [facility] Methicillin Resistant S. Aureus By Pcr Negative Negative [facility] Staphylococcus Aureus By Pcr Negative Negative [facility] SODIUMon 08-03-2024 Interpretation and review of laboratory results Normal [facility] Sodium [Moles/Vol] 139 mmol/L 135 - 145 mmol/L [facility] Sodium [Moles/Vol] 139 mmol/L Normal 135-145 [facility] Comment on above: Order Comment: While on 3% Hypertonic Saline. Performed By: #### N AO ####[facility] (DEFAULT)[address] [place] [address] Interpretation and review of laboratory results Abnormal [facility] Sodium [Moles/Vol] 134 mmol/L Low 135 - 145 mmol/L [facility] Sodium [Moles/Vol] 134 mmol/L Low 135-145 [facility] Comment on above: Order Comment: While on 3% Hypertonic Saline. Performed By: #### H EMOGC #### [facility] (DEFAULT) [address] [place], [place] [id number] XR ABDOMEN 1 VIEW PORTABLEon 08-03-2024 XR [...] second portion of the duodenum. Normal [facility] XR Abdomen Single viewon RADIOLOGY RADIOLOGY [facility] Radiology Study observation (narrative) [facility] XR Abdomen Single viewOrdere d By: Huey Gibson on 08-03-2024 [facility] XR ELBOW RIGHT 2 VIEWSon XR ELBOW RIGHT 2 VIEWS EXAM: XR ELBOW RI GHT 2 VIEWS, XR HUMERUS RIGHT 2+ VIEWS, XR WRIST RIGHT 3+ VIEWS, 08/02/2024 23:24 PM (accession [id number]), 08/02/2024 23:24 PM (accession [id number]), 08/02/2024 23:23 PM (accession [id number]) COMPARISON: No prior studies available for comparison. [...] IMPRESSION: No acute osseous abnormality. Normal [facility] XR HUMERUS RIGHT 2+ VIEWSon 08-03-2024 XR HUMERUS RIGHT 2+ VIEWS EXAM: XR ELBOW RIGHT 2 VIEWS, XR HUMERUS RIGHT 2+ VIEWS, XR WRIST RIGHT 3+ VIEWS, 08/02/2024 23:24 PM (accession [id number]), 08/02/2024 23:24 PM (accession [id number]), 08/02/2024 23:23 PM (accession [id number]) COMPARISON: No prior studies available for comparison. [...] IMPRESSION: No acute osseous abnormality. Normal [facility] XR WRIST RIGHT 3+ VIEWSon XR WRIST RIGHT 3+ VIEWS EXAM: XR ELBOW R IGHT 2 VIEWS, XR HUMERUS RIGHT 2+ VIEWS, XR WRIST RIGHT 3+ VIEWS, 08/02/2024 23:24 PM (accession [id number]), 08/02/2024 23:24 PM (accession [id number]), 08/02/2024 23:23 PM (accession [id number]) COMPARISON: No prior studies available for comparison. [...] IMPRESSION: No acute osseous abnormality. Normal [facility] 12 Lead EKGon 08-02-2024 12 Lead EKG [facility]ovascular Services [address] [place] [address] 12 Lead EKG 08/02/24 1309 MR#: [id number] Acct: [id number] Name: LINDSAY ACUNA Rep #: [id number] : 1945 78 From: Mj Benavides MD [...] Confirmed by MAKAYLA LAWSON, MJ ([id number]), editor at large NAIMA BEARDEN ([id number]) on 08/05/2024 6:47:07 AM Referred By: Confirmed By: MJ BENAVIDES MD 08/05/24 0647 Date Mj Benavides MD CC: Dr. Pieter Morgan MD; Dr. Kameron Caruso MD Signed Normal [facility] Absolute lymphocyte countOrd ered By: Pieter Morgan on 08-02-2024 Lymphocytes Auto (Unsp spec) [#/Vol] 1.56 10*3/uL 0.83-4.51 [facility] Absolute neutrophil countOrd ered By: Pieter Morgan on 08-02-2024 Neutrophils (Bld) [#/Vol] 6.2 10*3/uL 2.0-7.7 [facility] Activated partial thrombopla stin time (aPTT) in platelet poor plasma by coagulation aOrdered By: Pieter Morgan on 08-02-2024 aPTT Coag (PPP) [Time] 28.4 s 24.1-36.2 [facility] Anion gap in Serum or Plasma Ordered By: Pieter Morgan on 08-02-2024 Anion gap [Moles/Vol] 12 mmol/L 5-15 [facility] Automated lymphocyte count a s percentage of total leukocytesOrdered By: Pieter Morgan on 08-02-2024 Lymphocytes/100 WBC Auto (Unsp spec) 17.9 % Low [facility] BUN/creatinine ratioOrdered By: Pieter Morgan on 08-02-2024 Urea nitrogen/Creatinine [Mass ratio] 11.6 mg/mg 03-03 [facility] Basic Metabolic Profile (BMP )on 08-02-2024 BUN/CRE 11.6 RATIO Normal 03-03 [facility] Comment on above: Performed By: #### L 300.4310, L501.4021, L300.3900, L500.2500, L100.0100 #### [facility] [address] [place], [address] Calcium [Mass/Vol] 9.0 mg/dL Normal 7.6-11.0 [facility] Comment on above: Performed By: #### L 300.4310, L501.4021, L300.3900, L500.2500, L100.0100 #### [facility] [address] [place], [address] Chloride [Moles/Vol] 98 mmol/L Normal 98-108 [facility] Comment on above: Performed By: #### L 300.4310, L501.4021, L300.3900, L500.2500, L100.0100 #### [facility] [address] [place], [address] CO2 [Moles/Vol] 22.0 mmol/L Normal 21.0-32.0 [facility] Comment on above: Performed By: #### L 300.4310, L501.4021, L300.3900, L500.2500, L100.0100 #### [facility] [address] [place], [address] Creatinine [Mass/Vol] 1.74 mg/dL High 0.70-1.20 [facility] Comment on above: Performed By: #### L 300.4310, L501.4021, L300.3900, L500.2500, L100.0100 #### [facility] [address] [place], [address] ECRCL 27.14 ml/min Low 50-250 [facility] Comment on above: Performed By: #### L 300.4310, L501.4021, L300.3900, L500.2500, L100.0100 #### [facility] [address] [place], [address] GAP 12 Normal 5-15 [facility] Comment on above: Performed By: #### L 300.4310, L501.4021, L300.3900, L500.2500, L100.0100 #### [facility] [address] [place], [address] GFR/1.73 sq M.predicted among non-blacks MDRD (S/P/Bld) [Vol rate/Area] 29 mL/min/{1.73_m2} Low >60 [facility] Comment on above: Result Comment: mL/m in/1.73m2 CKD-EPI Creatinine Equation (2020) Performed By: #### L 300.4310, L501.4021, L300.3900, L500.2500, L100.0100 #### [facility] [address] [place], [address] Glucose [Mass/Vol] 235 mg/dL High 70-99 [facility] Comment on above: Performed By: #### L 300.4310, L501.4021, L300.3900, L500.2500, L100.0100 #### [facility] [address] [place], [address] Potassium [Moles/Vol] 4.2 mmol/L Normal 3.3-5.1 [facility] Comment on above: Performed By: #### L 300.4310, L501.4021, L300.3900, L500.2500, L100.0100 #### [facility] [address] [place], [address] Sodium [Moles/Vol] 132 mmol/L Low 133-145 [facility] Comment on above: Performed By: #### L 300.4310, L501.4021, L300.3900, L500.2500, L100.0100 #### [facility] [address] [place], [address] Urea nitrogen [Mass/Vol] 20 mg/dL High 4-19 [facility] Comment on above: Performed By: #### L 300.4310, L501.4021, L300.3900, L500.2500, L100.0100 #### [facility] [address] [place], [address] Basophil percentageOrdered B y: Pieter Morgan on 08-02-2024 Basophils/100 WBC (Bld) 0.5 % 0-[address] [facility] CBC W/Diff, Automatedon 07-14 Absolute Lymph 1.56 X10 3/uL Normal 0.83-4.51 [facility] Comment on above: Performed By: #### L 300.4310, L501.4021, L300.3900, L500.2500, L100.0100 #### [facility] [address] [place], [address] Absolute Neut 6.2 X10 3/uL Normal 2.0-7.7 [facility] Comment on above: Performed By: #### L 300.4310, L501.4021, L300.3900, L500.2500, L100.0100 #### [facility] [address] [place], [address] Basophils/100 WBC (Bld) 0.5 % Normal 0-[address] [facility] Comment on above: Performed By: #### L 300.4310, L501.4021, L300.3900, L500.2500, L100.0100 #### [facility] [address] [place], [address] Eosinophils/100 WBC (Bld) 1.0 % Normal 0-5 [facility] Comment on above: Performed By: #### L 300.4310, L501.4021, L300.3900, L500.2500, L100.0100 #### [facility] [address] [place], [address] Erythrocyte distribution width (RBC) [Ratio] 13.3 % Normal 11.6-14.6 [facility] Comment on above: Performed By: #### L 300.4310, L501.4021, L300.3900, L500.2500, L100.0100 #### [facility] [address] [place], [address] Hematocrit (Bld) [Volume fraction] 42.0 % Normal 37-47 [facility] Comment on above: Performed By: #### L 300.4310, L501.4021, L300.3900, L500.2500, L100.0100 #### [facility] [address] [place], [address] Hemoglobin (Bld) [Mass/Vol] 13.8 g/dL Normal 12.0-15.0 [facility] Comment on above: Performed By: #### L 300.4310, L501.4021, L300.3900, L500.2500, L100.0100 #### [facility] [address] [place], [address] IG% 0.300 Normal 0.0-0.9 [facility] Comment on above: Result Comment: IG% - Immature Granulocytes (promyelocytes, myelocytes and metamyelocytes) > 1% indicates that a LEFT SHIFT is Present. Performed By: #### L 300.4310, L501.4021, L300.3900, L500.2500, L100.0100 #### [facility] [address] [place], [address] Lymphocytes/100 WBC (Bld) 17.9 % Low 19-41 [facility] Comment on above: Performed By: #### L 300.4310, L501.4021, L300.3900, L500.2500, L100.0100 #### [facility] [address] [place], [address] MCH (RBC) [Entitic mass] 30.3 pg Normal 27.0-32.0 [facility] Comment on above: Performed By: #### L 300.4310, L501.4021, L300.3900, L500.2500, L100.0100 #### [facility] [address] [place], [address] MCHC (RBC) [Mass/Vol] 32.9 g/dL Normal 32-36 [facility] Comment on above: Performed By: #### L 300.4310, L501.4021, L300.3900, L500.2500, L100.0100 #### [facility] [address] [place], [address] MCV (RBC) [Entitic vol] 92.1 fL Normal 81-99 [facility] Comment on above: Performed By: #### L 300.4310, L501.4021, L300.3900, L500.2500, L100.0100 #### [facility] [address] [place], [address] Monocytes/100 WBC (Bld) 8.9 % Normal 0-[address] [facility] Comment on above: Performed By: #### L 300.4310, L501.4021, L300.3900, L500.2500, L100.0100 #### [facility] [address] [place], [address] Neutrophils/100 WBC (Bld) 71.4 % High 47-70 [facility] Comment on above: Performed By: #### L 300.4310, L501.4021, L300.3900, L500.2500, L100.0100 #### [facility] [address] [place], [address] Nucleated RBC (Bld) [#/Vol] 0 10*3/uL Normal 0-5 [facility] Comment on above: Performed By: #### L 300.4310, L501.4021, L300.3900, L500.2500, L100.0100 #### [facility] [address] [place], [address] Platelet mean volume (Bld) [Entitic vol] 10.7 fL Normal 6.2-12.0 [facility] Comment on above: Performed By: #### L 300.4310, L501.4021, L300.3900, L500.2500, L100.0100 #### [facility] [address] [place], [address] Platelets (Bld) [#/Vol] 214 10*3/uL Normal 150-450 [facility] Comment on above: Performed By: #### L 300.4310, L501.4021, L300.3900, L500.2500, L100.0100 #### [facility] [address] [place], [address] RBC (Bld) [#/Vol] 4.56 10*6/uL Normal 4.2-5.4 [facility] Comment on above: Performed By: #### L 300.4310, L501.4021, L300.3900, L500.2500, L100.0100 #### [facility] [address] [place], [address] RDW SD 45.3 fl High 35.1-43.9 [facility] Comment on above: Performed By: #### L 300.4310, L501.4021, L300.3900, L500.2500, L100.0100 #### [facility] [address] [place], [address] WBC (Bld) [#/Vol] 8.7 10*3/uL Normal 4.4-11.0 [facility] Comment on above: Performed By: #### L 300.4310, L501.4021, L300.3900, L500.2500, L100.0100 #### [facility] [address] [facility] [place], [address] CBC,PLATELETSon 08-02-2024 Erythrocyte distribution width (RBC) [Ratio] 13.3 % 10.8 - 14.9 % [facility] Hematocrit (Bld) [Volume fraction] 43.8 % 34.9 - 44.3 % [facility] Hemoglobin (Bld) [Mass/Vol] 14 g/dL 11.4 - 15.2 g/dL [facility] Interpretation and review of laboratory results Normal [facility] MCH (RBC) [Entitic mass] 29.4 pg 25.9 - 33.9 pg [facility] MCHC (RBC) [Mass/Vol] 32 g/dL 31.4 - 35.9 g/dL [facility] MCV (RBC) [Entitic vol] 92 fL 79.6 - 97.7 fL [facility] Platelet mean volume (Bld) [Entitic vol] 10.8 fL 8.5 - 12.2 fL [facility] Platelets (Bld) [#/Vol] 245 10*3/uL 150 - 393 K/uL [facility] RBC (Bld) [#/Vol] 4.76 10*6/uL [facility] WBC (Bld) [#/Vol] 8.16 10*3/uL 3.99 - 11.19 K/uL [facility] Hematocrit (Bld) [Volume fraction] 43.8 % Normal 34.9-44.3 [facility] Comment on above: Performed By: #### B LDCULT #### [facility] (DEFAULT) [address] [place] [address] Hemoglobin (Bld) [Mass/Vol] 14.0 g/dL Normal 11.4-15.2 [facility] Comment on above: Performed By: #### B LDCULT #### [facility] (DEFAULT) [address] [place] [address] MCV (RBC) [Entitic vol] 92.0 fL Normal 79.6-97.7 [facility] Comment on above: Performed By: #### B LDCULT #### [facility] (DEFAULT) [address] [place] [address] Mean Cell Hgb 29.4 pg Normal 25.9-33.9 [facility] Comment on above: Performed By: #### B LDCULT #### [facility] (DEFAULT) [address] [place] [address] Mean Cell Hgb Conc 32.0 g/dL Normal 31.4-35.9 [facility] Comment on above: Performed By: #### B LDCULT #### [facility] (DEFAULT) [address] [place] [address] Platelet mean volume (Bld) [Entitic vol] 10.8 fL Normal 8.5-12.2 [facility] Comment on above: Performed By: #### B LDCULT #### [facility] (DEFAULT) [address] [place] [address] Platelets (Bld) [#/Vol] 245 10*3/uL Normal 150-393 [facility] Comment on above: Performed By: #### B LDCULT #### [facility] (DEFAULT) [address] [place] [address] RBC (Bld) [#/Vol] 4.76 10*6/uL Normal 3.91-5.04 [facility] Comment on above: Performed By: #### B LDCULT #### [facility] (DEFAULT) [address] [place] [address] RBC Distribution 13.3 % Normal 10.8-14.9 [facility] Comment on above: Performed By: #### B LDCULT #### [facility] (DEFAULT) [address] [place] [address] WBC (Bld) [#/Vol] 8.16 10*3/uL Normal 3.99-11.19 [facility] Comment on above: Performed By: #### B LDCULT #### [facility] (DEFAULT) [address] [place] [address] CHEM 7 (LYTES,BUN,CREA,GLUC) on 08-02-2024 Anion gap [Moles/Vol] 16 mmol/L 7 - 17 mmol/L [facility] Chloride [Moles/Vol] 105 mmol/L 98 - 10 8 mmol/L [facility] CO2 [Moles/Vol] 22 mmol/L 21 - 31 mmol/L [facility] Creatinine [Mass/Vol] 1.37 mg/dL High 0.50 - 1.20 mg/dL [facility] eGFR, CKD-EPI, Female 39 Low - PINF [facility] Glucose [Mass/Vol] 210 mg/dL High 70 - 179 mg/dL [facility] Osmolality Calc [Osmolality] 299 [facility] Potassium [Moles/Vol] 3.7 mmol/L 3.5 - 5.0 mmol/L [facility] Sodium [Moles/Vol] 139 mmol/L 135 - 145 mmol/L [facility] Urea nitrogen [Mass/Vol] 18 mg/dL 7 - 25 mg/dL [facility] Urea nitrogen/Creatinine [Mass ratio] 13 mg/mg [facility] Anion gap [Moles/Vol] 16 mmol/L Normal 7-17 [facility] Comment on above: Performed By: #### [facility] #### [facility] (DEFAULT) [address] [place] [address] Chloride [Moles/Vol] 105 mmol/L Normal 98-108 [facility] Comment on above: Performed By: #### H EMO #### [facility] (DEFAULT) [address] [place] [address] CO2 [Moles/Vol] 22 mmol/L Normal 21-31 [facility] Comment on above: Performed By: #### [facility] #### [facility] (DEFAULT) [address] [place] [address] Creatinine [Mass/Vol] 1.37 mg/dL High 0.50-1.20 [facility] Comment on above: Performed By: #### [facility] #### [facility] (DEFAULT) [address] [place] [address] GFR/1.73 sq M.predicted among non-blacks MDRD (S/P/Bld) [Vol rate/Area] 39 mL/min/{1.73_m2} Low >=60 [facility] Comment on above: Result Comment: Repo rted eGFR is based on the CKD-EPI 2020 equation using creatinine, age, and sex. Performed By: #### [facility] #### [place] [facility] (DEFAULT) [address] [place] [address] Glucose [Mass/Vol] 210 mg/dL High Nonfastin -179 mg/dL; Fastin-99 [facility] Comment on above: Performed By: #### H EMOGC #### [facility] (DEFAULT) [address] [place] [address] Osmolality [Osmolality] 299 mosm/kg Normal 278-305 [facility] Comment on above: Performed By: #### H EMO #### [facility] (DEFAULT) [address] [place] [address] Potassium [Moles/Vol] 3.7 mmol/L Normal 3.5-5.0 [facility] Comment on above: Performed By: #### H EMO #### [facility] (DEFAULT) [address] [place] [address] Sodium [Moles/Vol] 139 mmol/L Normal 135-145 [facility] Comment on above: Performed By: #### H EMO #### [facility] (DEFAULT) [address] [place] [address] Urea nitrogen [Mass/Vol] 18 mg/dL Normal 7-25 [facility] Comment on above: Performed By: #### H EMO #### [facility] (DEFAULT) [address] [place] [address] Urea nitrogen/Creatinine [Mass ratio] 13 mg/mg Normal [facility] Comment on above: Performed By: #### H EMO #### [facility] (DEFAULT) [address] [place] [address] ABDOMEN/PELVIS WITH CONTR AST VASCULAR TRAUMAon [...] None. Kidney trauma grade: None. Normal [facility] CT Abdomen and Pelvis W cont rast Seth 08-02-2024 RADIOLOGY RADIOLOGY [facility] CT Abdomen and Pelvis W cont rast IVOrdered By: Edson Head on 08-02-2024 [facility] Work Phone: CT Cervical spine WO contras ton 08-02-2024 Radiology Study observation (narrative) [facility] CT Orbit WO contraston 08-02 Radiology Study observation (narrative) [facility] Carbon dioxide, total [Moles /volume] in Central venous bloodOrdered By: Pieter Morgan on 08-02-2024 CO2 [Moles/Vol] 22.0 mmol/L 21.0-32.0 [facility] Chloride assayOrdered By: Racheal Morgan on 08-02-2024 Chloride [Moles/Vol] 98 mmol/L 98-108 [facility] Emergency Department Summary on 08-02-2024 Emergency Department Summary [facility] Medical Records Department [address] [place] [address] Emergency Department Summary 08/02/24 MR#: [id number] Acct: [id number] Name: LINDSAY ACUNA NOAH Rep #: [id number] : 1945 78 From: Pieter Morgan MD [...] the EMR. states they returned home from [facility] about 1.5-2 weeks ago, and they both had colds. He is better, but she is "on round 2." [facility] Medical History Paroxysmal atrial fibrillation with [...] normal respir (more content not included)... Normal [facility] Eosinophil percentageOrdered By: Pieter Morgan on 08-02-2024 Eosinophils/100 WBC (Bld) 1.0 % 0-5 [facility] Erythrocyte distribution wid th ratioOrdered By: Pieter Morgan on 08-02-2024 Erythrocyte distribution width (RBC) [Ratio] 13.3 % 11.6-14.6 [facility] Erythrocyte distribution wid th standard deviationOrdered By: Pieter Morgan on 08-02-2024 Erythrocyte distribution width (RBC) [Entitic vol] 45.3 fL High 35.1-43.9 [facility] Erythrocyte distribution width (RBC) [Ratio] 45.3 fl High 35.1-43.9 [facility] Estimation of creatinine mackenzie aranceOrdered By: Pieter Morgan on 08-02-2024 Estimated Creatinine Clearance Calc 27.14 ml/min Low 50-250 [facility] GFR/1.73 sq M.predicted lana g non-blacks MDRD (S/P/Bld) [Vol rate/Area]Ordered By: Pieter Morgan on 08-02-2024 Estimated GFR (MDRD) Non-Af Amer 29 Low >60 [facility] Comment on above: mL/min/1.73m2 CKD-EP I Creatinine Equation (2020) Glomerular filtration rate ( GFR) estimation/1.73 sq m using serum, plasma, or whole bOrdered By: Pieter Morgan on 08-02-2024 GFR/1.73 sq M.predicted among non-blacks MDRD (S/P/Bld) [Vol rate/Area] 29 mL/min/{1.73_m2} Low >60 [facility] Comment on above: mL/min/1.73m2 CKD-EP I Creatinine Equation (2020) HEMOGLOBIN A1Con 08-02-2024 Average glucose Estimated from glycated hemoglobin (Bld) [Mass/Vol] 177 mg/dL [facility] HbA1c (Bld) [Mass fraction] 7.8 % High 4.7 - 5.6 % [facility] Interpretation and review of laboratory results Abnormal [facility] Glucose [Mass/Vol] 177 mg/dL Normal [facility] Comment on above: Performed By: #### H EMO #### [facility] (DEFAULT) [address] [place] [address] Hemoglobin A1C HPLC 7.8 % High 4.7-5.6 [facility] Comment on above: Performed By: #### H EMO #### [facility] (DEFAULT) [address] [place] [address] HEPATIC FUNCTION PANELon Albumin [Mass/Vol] 3.5 g/dL 3.5 - 5.0 g/dL [facility] ALP [Catalytic activity/Vol] 117 U/L 32 - 126 U/L [facility] ALT [Catalytic activity/Vol] 10 U/L 9 - 48 U/L [facility] AST [Catalytic activity/Vol] 17 U/L 10 - 39 U/L [facility] Bilirubin [Mass/Vol] 0.6 mg/dL NINF - 1.5 mg/dL [facility] Bilirubin.direct [Mass/Vol] 0.1 mg/dL [facility] mg/dL [facility] Protein [Mass/Vol] 6.3 g/dL Low 6.4 - 8.3 g/dL [facility] Albumin [Mass/Vol] 3.5 g/dL Normal 3.5-5.0 [facility] Comment on above: Performed By: #### [facility] #### [facility] (DEFAULT) [address] [place] [address] ALP [Catalytic activity/Vol] 117 U/L Normal 32-126 [facility] Comment on above: Performed By: #### H EMO #### [facility] [facility] (DEFAULT) [address] [place] [address] ALT [Catalytic activity/Vol] 10 U/L Normal 9-48 [facility] Comment on above: Performed By: #### H EMO #### [facility] (DEFAULT) [address] [place] [address] AST [Catalytic activity/Vol] 17 U/L Normal 10-39 [facility] Comment on above: Performed By: #### H EMO #### [facility] (DEFAULT) [address] [place] [address] 12095 Bilirubin [Mass/Vol] 0.6 mg/dL Normal <1.5 [facility] Comment on above: Performed By: #### H EMOGC #### [facility] (DEFAULT) [address] [place] [address]21 Bilirubin.indirect [Mass/Vol] 0.1 mg/dL Normal <0.3 [facility] Comment on above: Performed By: #### H EMOGC #### [facility] (DEFAULT) [address] [place] [address] 88914 Protein [Mass/Vol] 6.3 g/dL Low 6.4-8.3 [facility] Comment on above: Performed By: #### [facility] #### [facility] (DEFAULT) [address] [place] [address] 6[address]99 HIGH SENSITIVITY TROPONIN I - SINGLE ORDERon 08-02-2024 Interpretation and review of laboratory results Normal [facility] Troponin I.cardiac High sensitivity method [Mass/Vol] 9 ng/L NINF - 34 ng/L [facility] hs-Troponin I 9 ng/L Normal <34 [facility] Comment on above: Order Comment: [...] bottle. Performed By: #### B LDCULT #### [facility] (DEFAULT) [address] [place] [address] 39133 Hematocrit Auto (Bld) [Volum e fraction]Ordered By: Pieter Morgan on 08-02-2024 Hematocrit (Bld) [Volume fraction] 42.0 % 37-47 [facility] Hemoglobin measurementOrdere d By: Pieter Cathy on 08-02-2024 Hemoglobin (Bld) [Mass/Vol] 13.8 g/dL 12.0-15.0 [facility] Immature granulocytes/100 WB C Auto (Bld)Ordered By: Pieter Morgan on 08-02-2024 Immature granulocytes/100 WBC (Bld) 0.300 % 0.0-0.9 [facility] Comment on above: IG% - Immature Granu locytes (promyelocytes, myelocytes and metamyelocytes) > 1% indicates that a LEFT SHIFT is Present. Influenza virus A and B and SARS-CoV-2 (COVID-19) and Respiratory syncytial virus RNAOrdered By: Pieter Cathy on 08-02-2024 SARS-CoV-2 (COVID-19) RNA CHUCKY+probe Ql (Unsp spec) [facility] International normalized rat io (INR) calculationOrdered By: Pieter Morgan on 08-02-2024 INR Coag (Bld) [Relative time] 1.1 {INR} [facility] L499.0042on 08-02-2024 Trop T High Sen Normal <=14 [facility] Comment on above: Result Comment: Canc elled via OM: Order cancelled - Patient discharged Performed By: #### L 499.0042 ####[facility] [address] [place], [address] L499.0043on 08-02-2024 Trop T High Sen Normal <=14 [facility] Comment on above: Result Comment: Canc elled via OM: Order cancelled - Patient discharged Performed By: #### L 499.0043 ####[facility] [address] [place], [address] L501.4021on 08-02-2024 Trop T High Sen 38 ng/L High <=14 [facility] Comment on above: Performed By: #### L 300.4310, L501.4021, L300.3900, L500.2500, L100.0100 ####[facility] [address] [place], [place], [id number] LIPID PANEL WITH REFLEX TO M [place] LDLon 08-02-2024 Cholesterol [Mass/Vol] 141 mg/dL NINF - 200 mg/dL [facility] Cholesterol in HDL [Mass/Vol] 38 mg/dL Low 40 - PINF mg/dL [facility] Cholesterol in LDL [Mass/Vol] 84 mg/dL 0 - 99 mg/dL [facility] Cholesterol non HDL [Mass/Vol] 103 mg/dL NINF - 130 mg/dL [facility] Cholesterol.total/Alta sterol in HDL [Mass ratio] 3.7 {ratio} NINF - 4.5 [facility] Triglyceride [Mass/Vol] 96 mg/dL NINF - 150 mg/dL [facility] Calculated LDL Cholesterol 84 mg/dL Normal 0-99 [facility] Comment on above: Result Comment: [<10 0 mg/dL: Optimal] [100-129 mg/dL: Near Optimal] [130-159 mg/dL: Borderline High] [160-189 mg/dL: High] [>189 mg/dL: Very High] Performed By: #### [facility] #### [facility] (DEFAULT) [address] [place] [address]126 Cholesterol [Mass/Vol] 141 mg/dL Normal <200 [facility] Comment on above: Result Comment: [<20 0 mg/dL: Desirable] [200-239 mg/dL: Borderline High] [>239 mg/dL: High] Performed By: #### [facility] #### [facility] (DEFAULT) [address] [place] [address] 90542 Cholesterol in HDL [Mass/Vol] 38 mg/dL Low >=40 [facility] Comment on above: Result Comment: [<40 mg/dL: Low (High Risk)] [>59 mg/dL: High (Low Risk)] Performed By: #### H EMO #### [facility] (DEFAULT) [address] [place] [address] 67061 Non HDL Cholesterol 103 mg/dL Normal <130 [facility] Comment on above: Performed By: #### [facility] #### [facility] (DEFAULT) [address] [place] [address] 49819 Total Cholesterol/HDL Ratio 3.7 Normal <4.5 [facility] Comment on above: Performed By: #### [facility] #### [facility] (DEFAULT) [address] [place] [address] 23248 Triglyceride [Mass/Vol] 96 mg/dL Normal <150 [facility] Comment on above: Result Comment: [<15 0 mg/dL: Desirable] [150-199 mg/dL: Borderline] [200-499 mg/dL: High] [>500 mg/dL: Very High] Performed By: #### [facility] #### [facility] (DEFAULT) [address] [place] [address] 22005 Lymphocytes Auto (Unsp spec) [#/Vol]Ordered By: Pieter Morgan on 08-02-2024 Lymphocytes (Bld) [#/Vol] 1.56 10*3/uL 0.83-4.51 [facility] Lymphocytes/100 WBC Auto (Un sp spec)Ordered By: Pieter Morgan on 08-02-2024 Lymphocytes/100 WBC (Bld) 17.9 % Low 19-41 [facility] M100.678on 08-02-2024 M100.678 Pending SARS-CoV-2 (COVID 19) Negative INFLUENZA A Negative INFLUENZA B Negative RSV PCR Negative Normal [facility] Comment on above: Performed By: #### M 100.678 #### [facility] [address] [place], [place], [id number] MAGNESIUMon 08-02-2024 Magnesium [Mass/Vol] 1.2 mg/dL Low 1.6 - 2 .6 mg/dL [facility] Magnesium [Mass/Vol] 1.2 mg/dL Low 1.6-2.6 [facility] Comment on above: Performed By: #### [facility] #### [facility] (DEFAULT) [address] [place] [address] MCV (mean corpuscular volume ) determinationOrdered By: Pieter Morgan on 08-02-2024 MCV (RBC) [Entitic vol] 92.1 fL 81-[address] [facility] Mean corpuscular hemoglobin (MCH) determinationOrdered By: Pieter Morgan on 08-02-2024 MCH (RBC) [Entitic mass] 30.3 pg 27.0-32.0 [facility] Mean corpuscular hemoglobin concentration (MCHC) determinationOrdered By: Pieter Morgan on 08-02-2024 MCHC (RBC) [Mass/Vol] 32.9 g/dL 32-36 [facility] Mean platelet volume determi nationOrdered By: Pieter Morgan on 08-02-2024 Platelet mean volume (Bld) [Entitic vol] 10.7 fL 6.2-12.0 [facility] Monocyte percentageOrdered B y: Pieter Morgan on 08-02-2024 Monocytes/100 WBC (Bld) 8.9 % 0-[address] [facility] NT-PRO B-TYPE NATRIURETIC PE PTIDEon 08-02-2024 Natriuretic peptide B (Bld) [Mass/Vol] 1115 pg/mL High <=540 [facility] Comment on above: Performed By: #### [facility] #### [facility] (DEFAULT) [address] [place] [address] Neutrophil percentageOrdered By: Pieter Morgan on 08-02-2024 Neutrophils/100 WBC (Bld) 71.4 % High 47-70 [facility] No Panel Informationon 08-02 Radiology Study observation (narrative) [facility] Interpretation and review of laboratory results Abnormal [facility] No Panel InformationOrdered By: Pieter Morgan on 08-02-2024 Troponin T High Sensitivity 38 ng/L High <14 [facility] Nucleated red blood cell per centageOrdered By: Pieter Morgan on 08-02-2024 Nucleated RBC/100 WBC (Bld) [Ratio] 0 % 0-5 [facility] PT,INR,PTTon 08-02-2024 aPTT Coag (PPP) [Time] 26.9 s OS [facility] INR Coag (Bld) [Relative time] 1.1 {INR} 0.9 - 1.1 [facility] Interpretation and review of laboratory results Normal [facility] PT Coag (PPP) [Time] 13.9 s [facility] aPTT Coag (Bld) [Time] 26.9 s Normal 24.0-34.3 [facility] Comment on above: Performed By: #### P TPTT ####[facility] (DEFAULT)[address] [place] [address] INR Coag (PPP) [Relative time] 1.1 {INR} Normal 0.9-1.1 [facility] Comment on above: Performed By: #### P TPTT ####[facility] (DEFAULT)[address] [place] [address] PT Coag (PPP) [Time] 13.9 s Normal 11.9-14.2 [facility] Comment on above: Performed By: #### P TPTT ####[facility] (DEFAULT)[address] [place] [address] Partial Thromboplast Timeon 08-02-2024 aPTT Coag (Bld) [Time] 28.4 s Normal 24.1-36.2 [facility] Comment on above: Performed By: #### L 300.4310, L501.4021, L300.3900, L500.2500, L100.0100 #### [facility] [address] [place], [place], [id number] Platelet countOrdered By: Racheal Morgan on 08-02-2024 Platelets (Bld) [#/Vol] 214 10*3/uL 150-450 [facility] Potassium (Unsp spec) [Mass/ Vol]Ordered By: Pieter Morgan on 08-02-2024 Potassium [Moles/Vol] 4.2 mmol/L 3.3-5.1 [facility] Potassium measurement (mass/ volume)Ordered By: Pieter Morgan on 08-02-2024 Potassium (Unsp spec) [Mass/Vol] 4.2 mmol/L 3.3-5.1 [facility] Prothrombin Time w/INRon INR Coag (PPP) [Relative time] 1.1 {INR} Normal [facility] Comment on above: Performed By: #### L 300.4310, L501.4021, L300.3900, L500.2500, L100.0100 #### [facility] [address] [place], [address] PT Coag (PPP) [Time] 14.1 s Normal 11.7-14.9 [facility] Comment on above: Performed By: #### L 300.4310, L501.4021, L300.3900, L500.2500, L100.0100 #### [facility] [address] [place], [place], [id number] Prothrombin timeOrdered By: Piteer Morgan on 08-02-2024 PT Coag (PPP) [Time] 14.1 s 11.7-14.9 [facility] RBC Auto (Bld) [#/Vol]Ordere d By: Pieter Cathy on 08-02-2024 RBC (Bld) [#/Vol] 4.56 10*6/uL 4.2-5.4 [facility] SCREEN: MRSA/MSSAon 08-03-19 25 Methicillin Resistant S. Aureus By Pcr Negative Normal Negative [facility] Comment on above: Order Comment: Colle [...] the Clinical Microbiology Laboratory at [facility]. It has not been cleared or approved by the FDA.The laboratory is regulated under CLIA as qualified to perform high-complexity testing. This test is used for clinical purposes. It should not be regarded as investigational or for research. Performed By: #### T YPEC #### [facility] (DEFAULT) [address] [address] Staphylococcus Aureus By Pcr Negative Normal Negative [facility] Comment on above: Order Comment: Colle [...] the Clinical Microbiology Laboratory at [facility]. It has not been cleared or approved by the FDA.The laboratory is regulated under CLIA as qualified to perform high-complexity testing. This test is used for clinical purposes. It should not be regarded as investigational or for research. Performed By: #### T YPEC #### [facility] (DEFAULT) [address] [address] STROKE Brain/Head without Co nton 08-02-2024 STROKE Brain/Head without Cont [facility] Imaging Services [address] [place] [address] [id number] STROKE Brain/Head without Cont MR#: [id number] Acct: [id number] Name: LINDSAY ACUNA Rep #: [id number] : 1945 F 78 From: Kameron Cardoso MD PCP: Dr. Kameron Caruso MD Status: REG ER Study: STROKE Brain/Head without Cont Date of Exam: 0 08/02/24 Exam# [id number] Ordering Dr: Pieter Morgan MD EXAM: CT [...] 08/02/2024 at 1250 hours. Reading Location: [facility] CC: Dr. Pieter Morgan MD; Dr. Kameron Caruso MD Tube Man: Signed [facility] STROKE CTA Head AND Neck W/C onon 08-02-2024 STROKE CTA Head AND Neck W/Con [facility] Imaging Services [address] [place] [address] STROKE CTA Head AND Neck W/Con MR#: [id number] Acct: [id number] Name: LINDSAY ACUNA Rep #: [id number] : 1945 F 78 From: August ibrahim MD PCP: Dr. Kameron Caruso MD Status: REG ER Study: STROKE CTA Head AND Neck W/Con Date of Exam: 0 08/02/24 Exam# [id number] Ordering Dr: Pieter Morgan MD PROCEDURE: STROKE [...] impression: No significant stenosis seen. Reading Location: [place] [address] CC: Dr. Pieter Morgan MD; Dr. Kameron Caruso MD Tube Man: Signed Normal [facility] Serum creatinine measurement (mass/volume)Ordered By: Pieter Morgan on 08-02-2024 Creatinine [Mass/Vol] 1.74 mg/dL High 0.70-1.20 [facility] Serum glucose measurement (m ass/volume)Ordered By: Pieter Morgan on 08-02-2024 Glucose [Mass/Vol] 235 mg/dL High 70-99 [facility] Serum or plasma calcium dayna urement (mass/volume)Ordered By: Pieter Morgan on 08-02-2024 Calcium [Mass/Vol] 9.0 mg/dL 7.6-11.0 [facility] Serum or plasma urea nitroge n measurement (mass/volume)Ordered By: Pieter Morgan on 08-02-2024 Urea nitrogen [Mass/Vol] 20 mg/dL High 4-19 [facility] Sodium levelOrdered By: Evert Morgan on 08-02-2024 Sodium [Moles/Vol] 132 mmol/L Low 133-145 [facility] TSH W/FT4 REFLEXon Interpretation and review of laboratory results Normal [facility] TSH Qn 1.662 m[IU]/L [facility] TSH 1.662 uIU/mL Normal 0.550-4.780 [facility] Comment on above: Performed By: #### X M #### [facility] (DEFAULT) [address] [place] [address] TYPE AND SCREENon 08-02-2024 ABO/RH(D) TYPE Negative [facility] Specimen Expiration 08/05/2024 23:59 [facility] ABO/RH(D) TYPE Negative Normal [facility] Comment on above: Performed By: #### X M #### [facility] (DEFAULT) [address] [place] [address] Specimen Expiration 08/05/2024 23:59 Normal [facility] Comment on above: Performed By: #### X M #### [facility] (DEFAULT) [address] [place] [address] URINALYSIS REFLEX TO CULTURE PERFORMABLEOrdered By: Namita De La Cruz on 08-02-2024 Appearance (U) Clear Clear [facility] Bacteria LM Ql (Urine sed) PRESENT Abnormal ABSENT [facility] Color (U) Yellow Yellow [facility] Epithelial cells.squamous LM Ql (Urine sed) 0-2/hpf 0-2/hpf, 3-5/hpf = 1+ [facility] Glucose Test strip (U) [Mass/Vol] 500 mg/dL Abnormal Negative [facility] Interpretation and review of laboratory results Abnormal [facility] Ketones (U) [Mass/Vol] Negative Negative OS [facility] Leukocyte esterase Test strip Ql (U) Moderate Abnormal Negative [facility] Nitrite Ql (U) Negative Negative [facility] pH (U) 6.5 [pH] 5.0 - 7.0 [facility] Protein (U) [Mass/Vol] Negative Negative OS [facility] RBC (U) [#/Vol] Small Abnormal Negative [facility] RBC LM.HPF (Urine sed) [#/Area] 3-5 Abnormal [facility] Specific gravity (U) [Rel density] 1.022 1.001 - 1.035 [facility] Urobilinogen (U) [Mass/Vol] 0.2 E.U./dL 0.2 E.U/dL, 1.0 E.U/dL [facility] WBC LM.HPF (Urine sed) [#/Area] /[HPF] Abnormal [facility] URINALYSIS REFLEX TO CULTURE PERFORMABLEon 08-02-2024 Appearance (U) Clear Normal Clear [facility] Comment on above: Order Comment: For i ndwelling catheters, specimen collection is acceptable on catheter day 1 and 2 only. ? Performed By: #### U [id number] #### [facility] (DEFAULT) [address] [place] [address] Bacteria PRESENT Abnormal ABSENT [facility] Comment on above: Order Comment: For i ndwelling catheters, specimen collection is acceptable on catheter day 1 and 2 only. ? Performed By: #### U [id number] #### [facility] (DEFAULT) [address] [place] [address]67 Blood Urine Small Abnormal Negative [facility] Comment on above: Order Comment: For i ndwelling catheters, specimen collection is acceptable on catheter day 1 and 2 only. ? Performed By: #### U [id number] #### [facility] (DEFAULT) [address] [place] [address] Color (U) Yellow Normal Yellow [facility] Comment on above: Order Comment: For i ndwelling catheters, specimen collection is acceptable on catheter day 1 and 2 only. ? Performed By: #### U [id number] #### [facility] (DEFAULT) [address] [place] [address] Glucose Ql (U) 500 mg/dL Abnormal Negative [facility] Comment on above: Order Comment: For i ndwelling catheters, specimen collection is acceptable on catheter day 1 and 2 only. ? Performed By: #### U [id number] #### [facility] (DEFAULT) [address] [place] [address] Ketones Ql (U) Negative Normal Negative [facility] Comment on above: Order Comment: For i ndwelling catheters, specimen collection is acceptable on catheter day 1 and 2 only. ? Performed By: #### U [id number] #### [facility] (DEFAULT) [address] [place] [address] Leukocyte esterase Test strip Ql (U) Moderate Abnormal Negative [facility] Comment on above: Order Comment: For i ndwelling catheters, specimen collection is acceptable on catheter day 1 and 2 only. ? Performed By: #### U [id number] #### [facility] (DEFAULT) [address] [place] [address] Nitrites Urine Negative Normal Negative [facility] Comment on above: Order Comment: For i ndwelling catheters, specimen collection is acceptable on catheter day 1 and 2 only. ? Performed By: #### U [id number] #### [facility] (DEFAULT) [address] [place] [address] pH (U) 6.5 [pH] Normal 5.0-7.0 [facility] Comment on above: Order Comment: For i ndwelling catheters, specimen collection is acceptable on catheter day 1 and 2 only. ? Performed By: #### U [id number] #### [facility] (DEFAULT) [address] [place] [address] Protein Urine Negative Normal Negative [facility] Comment on above: Order Comment: For i ndwelling catheters, specimen collection is acceptable on catheter day 1 and 2 only. ? Performed By: #### U [id number] #### [facility] (DEFAULT) [address] [address] RBC Urine 3-5 Abnormal 0-2 [facility] Comment on above: Order Comment: For i ndwelling catheters, specimen collection is acceptable on catheter day 1 and 2 only. ? Performed By: #### U [id number] #### [facility] (DEFAULT) [address] [address] Specific [place] Urine 1.022 Normal 1.001-1.035 [facility] Comment on above: Order Comment: For i ndwelling catheters, specimen collection is acceptable on catheter day 1 and 2 only. ? Performed By: #### U [id number] #### [facility] (DEFAULT) [address] [address] Squamous/Epithelial Cells, Urine 0-2/hpf Normal 0-2/hpf, 3-5/hpf = 1+ [facility] Comment on above: Order Comment: For i ndwelling catheters, specimen collection is acceptable on catheter day 1 and 2 only. ? Performed By: #### U [id number] #### [facility] (DEFAULT) [address] [address] Urobilinogen Urine 0.2 E.U./dL Normal 0.2 E.U/d L, 1.0 E.U/dL [facility] Comment on above: Order Comment: For i ndwelling catheters, specimen collection is acceptable on catheter day 1 and 2 only. ? Performed By: #### U [id number] #### [facility] (DEFAULT) [address] [address] WBC LM.HPF (Urine sed) [#/Area] /[HPF] Abnormal 0 - 5 [facility] Comment on above: Order Comment: For i ndwelling catheters, specimen collection is acceptable on catheter day 1 and 2 only. ? Performed By: #### U [id number] #### [facility] (DEFAULT) [address] [address] VON WILLEBRAND FACTOR AGon 0 08-02-2024 Von Willebrand Factor Antigen 230 % High 50-180 [facility] Comment on above: Performed By: #### [facility] #### [facility] (DEFAULT) [address] [place] [address] White blood cell (WBC) count Ordered By: Pieter Morgan on 08-02-2024 WBC (Bld) [#/Vol] 8.7 10*3/uL 4.4-11.0 [facility] XR Elbow - right 2 Viewson 0 08-02-2024 Radiology Study observation (narrative) [facility] XR Humerus - right Viewson 0 08-02-2024 Radiology Study observation (narrative) [facility] XR Wrist - right 3 Viewson 0 08-02-2024 Radiology Study observation (narrative) [facility] aPTT Coag (PPP) [Time]Ordere d By: Pieter Morgan on 08-02-2024 aPTT Coag (Bld) [Time] 28.4 s 24.1-36.2 [facility] CNPNon 07-03-2024 CNPN Telephone (FAMPWS) LINDSAY ACUNA ([id number]) 1945 F Date Time Provider Department 07/03/24 [...] calling: self Call patient at: on cell [phone] (home) [phone] (cell) Was an appointment scheduled: No Closing statement: Results or non-symptom based questions: Thank you for calling [facility], your call will be returned within [...] [place] on 07/03/24 [facility] 07-02-2024 [facility] Telephone (ZooppaWS) LINDSAY ACUNA ([id number]) 1945 F Date Time Provider Department 07/02/24 KAMERON CARUSO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 Acceptable >59 mg/dL, High: Negative risk factor for coronary heart disease <40 mg/dL, Low: Positive risk factor for coronary heart disease Performed By: #### 3 016-3, 42191-8, 38801-2 ####[facility] LABCLIA [id number] [address] [facility] Cholesterol in LDL [Mass/Vol] 85 mg/dL Normal <100 [facility] Comment on above: Order Comment: Nici men Type: BLOOD SPECIMENOrdering Facility: [facility] Address: [address] [place] [address] Result Comment: <100 mg/dL, Optimal 100-129 mg/dL, Near optimal/above optimal 130-159 mg/dL, Borderline high 160-189 mg/dL, High >189 mg/dL, Very high Secondary prevention optimal LDL Cholesterol levels are recommended to be < 70 mg/dL Performed By: #### 3 016-3, 28347-6, 05205-6 ####[facility] LABCLIA [id number] [place] [address] [place] Cholesterol in LDL/Cholesterol in HDL [Mass ratio] 2.07 {ratio} Normal <2.54 [facility] Comment on above: Order Comment: Speci men Type: BLOOD SPECIMENOrdering Facility: [facility] Address: [address] [place] [address] Result Comment: Refe rence: 1. National Cholesterol Education Program ATP III Guideline At-A-Glance Quick Desk Reference: National Heart, Lung, and Blood [place]. National Institutes of Health. 2001: NIH Publication No. 01-3305. 2. An International Atherosclerosis Society position paper: global recommendations for the management of dyslipidemia: executive summary, Atherosclerosis. 2014: 232(2):410-413. Performed By: #### 3 016-3, 66963-0, 72056-2 ####[facility] LABIA [id number] [place] [address] [place] Cholesterol in VLDL [Mass/Vol] 30 mg/dL High <30 [facility] Comment on above: Order Comment: Speci men Type: BLOOD SPECIMENOrdering Facility: [facility] Address: [address] [place] [address] Performed By: #### 3 016-3, 34068-3, 97387-5 ####[facility] LABCLIA [id number] [place] [address] [place] Cholesterol non HDL [Mass/Vol] 115 mg/dL Normal <130 [facility] Comment on above: Order Comment: Speci men Type: BLOOD SPECIMENOrdering Facility: [facility] Address: [address] [place] [address] Result Comment: <130 mg/dL, Optimal 130-159 mg/dL, Near optimal/above optimal 160-189 mg/dL, Borderline high 190-219 mg/dL, High >219 mg/dL, Very high Secondary prevention optimal non HDL Cholesterol levels are recommended to be <100 mg/dL Performed By: #### 3 016-3, 53790-0, 23627-6 ####[facility] LABCLIA [id number] [place] [address] [place] Cholesterol.total/Alta sterol in HDL [Mass ratio] 3.80 {ratio} Normal <5.10 [facility] Comment on above: Order Comment: Speci men Type: BLOOD SPECIMENOrdering Facility: [facility] Address: [address] [place] [address] Performed By: #### 3 016-3, 60664-6, 84957-5 ####[facility] LABCLIA [id number] [place] [address] [place] FASTING TIME 12 hrs Normal [facility] Comment on above: Order Comment: Speci men Type: BLOOD SPECIMENOrdering Facility: [facility] Address: [address] [place] [address] Performed By: #### 3 016-3, 15299-1, 28084-4 ####[facility] LABCLIA [id number] [place] [address] [place] Triglyceride [Mass/Vol] 148 mg/dL Normal <150 [facility] Comment on above: Order Comment: Speci men Type: BLOOD SPECIMENOrdering Facility: [facility] Address: [address] [place] [address] Result Comment: <150 mg/dL, Normal 150-199 mg/dL, Borderline high 200-499 mg/dL, High >499 mg/dL, Very high Performed By: #### 3 016-3, 18803-4, 43075-8 ####[facility] LABCLIA [id number] [place] [address] [place] TSH SerPl-aCncon 11-27-2023 TSH Qn 1.870 m[IU]/L Normal 0.270-4.200 [facility] Comment on above: Order Comment: Speci men Type: BLOOD SPECIMENOrdering Facility: [facility] Address: [address] [place] [address] Performed By: #### 3 016-3, 60308-2, 08456-3 ####[facility] LABCLIA [id number] OF [place] CNOVon 10-10-2023 CNOV Office Visit (UCWSTR ) LINDSAY ACUNA ([id number]) 1945 F Date Time Provider Department 10/10/23 7:30 AM DAVID DUPREE [facility] During your visit today, we recorded the following information about you: Temperature Pulse Respiration Blood pressure 97.5 degrees 58/minute 18/minute 128/82 Weight 82.1 kg David Dupree APRN.BRONC BUSTER 10/10/2023 8:11 AM Signed Subjective HPI Nontoxic-appearing female presents urgent care accompanied with . Chief complaint rash. Duration of symptom 2 and half weeks. Associated symptoms pruritic erythematous rash. Patient was seen here about 10 days ago. [...] Rate and (more content not included)... Normal [facility] CNOVon 09-29-2023 CNOV Office Visit (UCWSTR ) LINDSAY ACUNA ([id number]) 1945 F Date Time Provider Department 09/29/23 2:15 PM RADHA LEVINE [facility] During your visit today, we recorded the following information about you: Temperature Pulse Respiration Blood pressure 97.8 degrees 54/minute 18/minute 148/91 Weight 84 kg Radha Levine, [facility] 09/29/2023 6:12 PM Signed This note was created using NoteWriter. Subjective Lindsay Acuna is a 77 year old female. 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 Denies fever or chills Denies malaise or fatigue Denies new lotions, soaps, or medicines States that she was working out in the garden the same day the rash erupted. The history is provided by the patient. No modern languages professor was used. Rash This is a new [...] mouth daily before breakfast. blood sugar diagnostic (Senzari ULTRA TEST) test strip Test Blood Sugar [...] 30 seconds then expectorate blood sugar diagnostic (Moya OkrugaTOUCH ULTRA TEST STRIP) test strip Use to [...] state. Hematologi (more content not included)... Normal [facility] Glucose,Bedsideon 04-16-2019 Glucose [Mass/Vol] 161 mg/dL High 70-100 [facility] Comment on above: Result Comment: Test performed by glucose meter. Results may be 10%-15% lower than serum/plasma values. (CLIA ID [id number]) Performed By: #### B GLU #### [address] [address] Surgical Pathologyon 019 Surgical Pathology [id number] [facility] PATHOLOGY AND LABORATORY MEDICINE [address] [place] [address] FINAL SURGICAL PATHOLOGY REPORT ___ NAME: LINDSAY ACUNA : 1945 73 Y F BILLING NO.: [id number] LOCATION: 1XEO PROCEDURE 01/09/2019 DATE: SURGEON: SANTIAGO [...] determined by the clinical laboratories of [facility]. They have not been cleared by [...] negativity on decalcified specimens. Professional Performing Location: [address] [address]. DEPARTMENT OF PATHOLOGY AND LABORATORY MEDICINE [place], [place] [address] Normal [facility] .Auto Diffon 08-22-2018 Ammonia mass conc (P) 1.10 10 3/mcL High 0.15-1.00 [facility] Comment on above: Performed By: #### B DAYANARA VALVERDE #### [address] [address] Basophils #/vol (Bld) 0.00 10 3/mcL Normal 0.00-0.19 [facility] Comment on above: Performed By: #### B MP, GFR #### [address] [address] Basophils/100 WBC (Bld) 0.3 % Normal 0.0-2.5 [facility] ([place] Comment on above: Performed By: #### B MP, GFR #### [address] [address] Eosinophils #/vol (Bld) 0.00 10 3/mcL Normal 0.00-0.40 [facility] Comment on above: Performed By: #### B MP, GFR #### [address] [address] Eosinophils/100 WBC (Bld) 0.2 % Normal 0.0-7.0 [facility] Comment on above: Performed By: #### B MP, GFR #### [address] [address] Lymphocytes #/vol (Bld) 2.20 10 3/mcL Normal 0.77-3.85 [facility] Comment on above: Performed By: #### B MP, GFR #### [address] [address] Lymphocytes/100 WBC (Bld) 20.5 % Normal 10.0-50.0 [facility] Comment on above: Performed By: #### B MP, GFR #### [address] [address] Monocytes/100 WBC (Bld) 10.5 % Normal 1.7-13.0 [facility] ([place]) Comment on above: Performed By: #### B MP, GFR #### [address] [address] Neutrophils/100 WBC (Bld) 68.5 % Normal 37.0-80.0 [facility] Comment on above: Performed By: #### B MP, GFR #### [address] [address] .GFRon 08-22-2018 GFR Non- 33 ml/min/1.73sqm Normal [facility] Comment on above: Result Comment: GFR [...] Performed By: #### B MP, GFR #### [address] [address] #### DORY LOPEZ, ANEU #### [address] [address] GFR 40 ml/min/1.73sqm Normal [facility] Comment on above: Result Comment: GFR [...] Performed By: #### B MP, GFR #### [address] [address] #### CBC, ADIFF, ANEU #### [address] [address] .NEUABSon 08-22-2018 Neutrophils #/vol (Bld) 7.40 10 3/mcL High 2.85-6.16 [facility] Comment on above: Performed By: #### B MP, GFR #### [place] [address] BMPon 08-22-2018 Calcium mass conc 8.3 mg/dL Low 8.4-10.2 [facility] Comment on above: Performed By: #### B MP, GFR #### [place] [address] #### CBC, ADIFF, ANEU #### [place] [address] Chloride molar conc 104 mmol/L Normal 98-107 [facility] ([place] Comment on above: Performed By: #### B MP, GFR #### [place] [address] #### CBC, ADIFF, ANEU #### [address] [address] CO2 molar conc 25 mmol/L Normal 23-31 [facility] Comment on above: Performed By: #### B MP, GFR #### [place] [address] #### CBC, ADIFF, ANEU #### [place] [address] Creatinine mass conc 1.53 mg/dL High 0.55-1.02 [facility] ([place] Comment on above: Performed By: #### B MP, GFR #### [place] [address] #### CBC, ADIFF, ANEU #### [place] [id number] Electrolyte Balance 10.0 mEq/L Normal [facility] ([place] Comment on above: Performed By: #### B MP, GFR #### [place] [address] #### CBC, ADIFF, ANEU #### [address] [address] Glucose mass conc 149 mg/dL High 83-110 [facility] Comment on above: Performed By: #### B MP, GFR #### [address] [address] #### CBC, ADIFF, ANEU #### [address] [address] Potassium molar conc 4.3 mmol/L Normal 3.5-5.1 [facility] ([place] Comment on above: Performed By: #### B MP, GFR #### [address] [address] #### CBC, ADIFF, ANEU #### [address] [address] Sodium molar conc 139 mmol/L Normal 136-145 [facility] Comment on above: Performed By: #### B MP, GFR #### [place] [address] #### CBC, ADIFF, ANEU #### [address] [address] Urea nitrogen mass conc 32 mg/dL High 7-18 [facility] [place] Comment on above: Performed By: #### B MP, GFR #### [address] [address] #### CBC, ADIFF, ANEU #### [address] [address] Urea nitrogen/Creatinine mass ratio 21 ratio Normal 7-27 [facility] Comment on above: Performed By: #### B MP, GFR #### [address] [address] #### CBC, ADIFF, ANEU #### [address] [address] CBCon 08-22-2018 Erythrocyte distribution width Ratio (RBC) 12.6 % Normal 11.5-14.5 [facility] Comment on above: Performed By: #### B MP, GFR #### [place] [address] Hematocrit Volume Fraction (Bld) 27.5 % Low 37.0-47.0 [facility] [place] Comment on above: Performed By: #### B MP, GFR #### [address] [address] Hemoglobin mass conc (Bld) 9.2 G/dL Low 12.0-16.0 [facility] [place] Comment on above: Performed By: #### B MP, GFR #### [place] [address] MCH Entitic mass (RBC) 30.1 pg Normal 27.0-31.2 [facility] ([place] Comment on above: Performed By: #### B MP, GFR #### [place] [address] MCHC mass conc (RBC) 33.5 G/dL Normal 33.0-37.0 [facility] ([place] Comment on above: Performed By: #### B MP, GFR #### [place] [address] MCV Entitic volume (RBC) 89.8 fL Normal 80.0-94.0 [facility] [place] Comment on above: Performed By: #### B MP, GFR #### [address] [address] Platelet mean volume Entitic volume (Bld) 9.3 fL Normal 7.4-10.4 [facility] Comment on above: Performed By: #### B MP, GFR #### [address] [address] Platelets #/vol (Bld) 224 10 3/mcL Normal 130-400 [facility] ([place] Comment on above: Performed By: #### B MP, GFR #### [address] [address] RBC #/vol (Bld) 3.06 10 6/mcL Low 4.20-5.40 [facility] ([place] Comment on above: Performed By: #### B MP, GFR #### [facility] [address] [place] [address] WBC #/vol (Bld) 10.80 10 3/mcL Normal 4.60-10.80 [facility] ([place] Comment on above: Performed By: #### B MP, GFR #### [facility] [address] [place] [address] XR KNEE 1 OR 2 VIEWS RIGHTon [...] AM Sign Date: 08/21/2018 9:55:37 AM Normal [facility] [place] KNEE W/O CONTRAST RIGHTon 08-09-2018 [...] PM Sign Date: 08/09/2018 5:04:12 PM Normal [facility] .Auto Diffon 08-06-2018 Ammonia mass conc (P) 0.80 10 3/mcL Normal 0.15-1.00 [facility] Comment on above: Performed By: #### C DORY SMITH, ANEU #### [place] [address] #### A1C #### [address] [address] Basophils #/vol (Bld) 0.10 10 3/mcL Normal 0.00-0.19 [facility] Comment on above: Performed By: #### C DORY SMITH, ANEU #### [place] [address] #### A1C #### [address] [address] Basophils/100 WBC (Bld) 0.6 % Normal 0.0-2.5 [facility] ([place] Comment on above: Performed By: #### C DORY SMITH, ANEU #### [place] [address] #### A1C #### [address] [address] Eosinophils #/vol (Bld) 0.20 10 3/mcL Normal 0.00-0.40 [facility] [place] Comment on above: Performed By: #### C DORY SMITH, ANEU #### [place] [address] #### A1C #### [address] [address] Eosinophils/100 WBC (Bld) 1.7 % Normal 0.0-7.0 [facility] [place] Comment on above: Performed By: #### C SARAH ADCAROL, ANEU #### [place] [address] #### A1C #### [address] [address] Lymphocytes #/vol (Bld) 1.90 10 3/mcL Normal 0.77-3.85 [facility] Comment on above: Performed By: #### C BC ADIFF, ANEU #### [address] [address] #### A1C #### [facility] [address] [place] [address] Lymphocytes/100 WBC (Bld) 20.8 % Normal 10.0-50.0 [facility] [place] Comment on above: Performed By: #### C BC ADIFF, ANEU #### [address] [address] #### A1C #### [facility] [address] [place] [address] Monocytes/100 WBC (Bld) 9.3 % Normal 1.7-13.0 [facility] ([place] Comment on above: Performed By: #### C BC ADIFF, ANEU #### [address] [address] #### A1C #### [address] [address] Neutrophils/100 WBC (Bld) 67.6 % Normal 37.0-80.0 [facility] [place] Comment on above: Performed By: #### C DORY SMITH, ANEU #### [address] [address] #### A1C #### [address] [address] .GFRon 08-06-2018 GFR 51 ml/min/1.73sqm Normal [facility] Comment on above: Result Comment: GFR [...] Performed By: #### B MP, GFR #### [address] [address] GFR Non- 42 ml/min/1.73sqm Normal [facility] [place] Comment on above: Result Comment: GFR [...] #### B MP, GFR #### [place] [address] .NEUABSon 08-06-2018 Neutrophils #/vol (Bld) 6.20 10 3/mcL High 2.85-6.16 [facility] [place] Comment on above: Performed By: #### DORY SOTO, ANEU #### [address] [address] #### A1C #### [place] [address] A1Con 08-06-2018 Hemoglobin A1c/Hemoglobin.total mass fraction (Bld) 7.9 % High 4.5-6.2 [facility] [place] Comment on above: Performed By: #### C DORY SMITH, ANEU #### [address] [address] #### A1C #### [address] [address] BMPon 08-06-2018 Calcium mass conc 9.2 mg/dL Normal 8.4-10.2 [facility] [place] Comment on above: Performed By: #### B MP, GFR #### [address] [address] Chloride molar conc 105 mmol/L Normal 98-107 [facility] ([place] Comment on above: Performed By: #### B MP, GFR #### [address] [address] CO2 molar conc 27 mmol/L Normal 23-31 [facility] Comment on above: Performed By: #### B MP, GFR #### [address] [address] Creatinine mass conc 1.25 mg/dL High 0.55-1.02 [facility] ([place] Comment on above: Performed By: #### B MP, GFR #### [address] [address] Electrolyte Balance 11.0 mEq/L Normal [facility] ([place] Comment on above: Performed By: #### B MP, GFR #### [place] [address] Glucose mass conc 70 mg/dL Low 83-110 [facility] [place] Comment on above: Performed By: #### B MP, GFR #### [place] [id number] Potassium molar conc 5.0 mmol/L Normal 3.5-5.1 [facility] ([place] Comment on above: Performed By: #### B MP, GFR #### [place] [id number] Sodium molar conc 143 mmol/L Normal 136-145 [facility] Comment on above: Performed By: #### B MP, GFR #### [address] [address] Urea nitrogen mass conc 26 mg/dL High 7-18 [facility] ([place] Comment on above: Performed By: #### B MP, GFR #### [address] [address] Urea nitrogen/Creatinine mass ratio 21 ratio Normal 7-27 [facility] [place] Comment on above: Performed By: #### B MP, GFR #### [address] [address] CBCon 08-06-2018 Erythrocyte distribution width Ratio (RBC) 12.2 % Normal 11.5-14.5 [facility] Comment on above: Performed By: #### C DORY SMITH, ANEU #### [address] [address] #### A1C #### [place] [address] Hematocrit Volume Fraction (Bld) 34.6 % Low 37.0-47.0 [facility] Comment on above: Performed By: #### C DORY SMITH, ANEU #### [address] [address] #### A1C #### [place] [address] Hemoglobin mass conc (Bld) 11.7 G/dL Low 12.0-16.0 [facility] Comment on above: Performed By: #### C DORY SMITH, ANEU #### [address] [address] #### A1C #### [place] [address] MCH Entitic mass (RBC) 30.6 pg Normal 27.0-31.2 [facility] ([place] Comment on above: Performed By: #### C DORY SMITH, ANEU #### [place] [address] #### A1C #### [place] [address] MCHC mass conc (RBC) 33.7 G/dL Normal 33.0-37.0 [facility] ([place] Comment on above: Performed By: #### C DORY SMITH, ANEU #### [address] [address] #### A1C #### [place] [address] MCV Entitic volume (RBC) 90.9 fL Normal 80.0-94.0 [facility] [place] Comment on above: Performed By: #### C BC, ADIFF, ANEU #### [address] [address] #### A1C #### [address] [address] Platelet mean volume Entitic volume (Bld) 8.8 fL Normal 7.4-10.4 [facility] [place] Comment on above: Performed By: #### C BC, ADIFF, ANEU #### [address] [address] #### A1C #### [address] [address] Platelets #/vol (Bld) 355 10 3/mcL Normal 130-400 [facility] ([place] Comment on above: Performed By: #### C BC, ADIFF, ANEU #### [address] [address] #### A1C #### [place] [address] RBC #/vol (Bld) 3.81 10 6/mcL Low 4.20-5.40 [facility] ([place] Comment on above: Performed By: #### C BC, ADIFF, ANEU #### [address] [address] #### A1C #### [place] [address] WBC #/vol (Bld) 9.20 10 3/mcL Normal 4.60-10.80 [facility] ([place] Comment on above: Performed By: #### C BC, ADIFF, ANEU #### [address] [address] #### A1C #### [place] [address] Vital Signs Date Time Vital Sign Value Performing Clinician Facility 10-02-2024 09:0400 Body height 167.[address] Kameron Caruso MD [facility] 10-02-2024 09:21-0400 Diastolic blood pressure 71 mm[Hg] Dr. Kameron Caruso MD Work Phone: [facility] 10-02-2024 09:21-0400 Heart rate 77 /min Dr. Kameron Caruso MD Work Phone: [facility] 10-02-2024 09:21-0400 Respiratory rate 16 /min Dr. Kameron Caruso MD Work Phone: [facility] 10-02-2024 09:21-0400 Systolic blood pressure 111 mm[Hg] Dr. Kameron Caruso MD Work Phone: [facility] 09-09-2024 09:02-0400 Heart rate 100 /min SILVINO SCHEATZLE DO [facility] 09-09-2024 07:58-0400 Blood Pressure Cuff Size SILVINO SCHEATZLE DO [facility] 09-09-2024 07:58-0400 Blood Pressure Location SILVINO SCHEATZLE DO [facility] 09-09-2024 07:58-0400 Blood Pressure Method SILVINO SCHEATZLE DO [facility] 09-09-2024 07:58-0400 Body temperature 96.8 [degF] SILVINO SCHEATZLE DO [facility] 09-09-2024 07:58-0400 Diastolic Blood Pressure Non-Invasive 78 mm[Hg] SILVINO SCHEATZLE DO [facility] 09-09-2024 07:58-0400 Heart rate 110 /min SILVINO SCHEATZLE DO [facility] 09-09-2024 07:58-0400 Reason For Taking VItal Signs SILVINO SCHEATZLE DO [facility] 09-09-2024 07:58-0400 Respiratory rate 16 /min SILVINO SCHEATZLE DO [facility] 09-09-2024 07:58-0400 Systolic Blood Pressure Non-Invasive 122 mm[Hg] SILVINO CIDATZLE DO [facility] 09-09-2024 02:45-0400 Body temperature 97.7 [degF] SILVINO CIDATZLE DO [facility] 09-09-2024 02:45-0400 Diastolic Blood Pressure Non-Invasive 60 mm[Hg] SILVINO CIDATZLE DO Tyler Warnern 09-09-2024 02:45-0400 Heart rate 92 /min SILVINO CIDATZLE DO Tyler Hackett 09-09-2024 02:45-0400 Respiratory rate 16 /min SILVINO CIDATZLE DO Tyler Warnern 09-09-2024 02:45-0400 Systolic Blood Pressure Non-Invasive 108 mm[Hg] SILVINO CIDATZLE DO Tyler Hackett 09-08-2024 22:28-0400 Blood Pressure Cuff Size SILVINO CIDATZLE DO Tyler Warnern 09-08-2024 22:28-0400 Blood Pressure Location SILVINO CIDATZLE DO Tyler Hackett 09-08-2024 22:28-0400 Blood Pressure Method SILVINO CIDATZLE DO Tyler Hackett 09-08-2024 22:28-0400 Body temperature 97.88 [degF] SILVINO CIDATZLE DO Tyler Hackett 09-08-2024 22:28-0400 Diastolic Blood Pressure Non-Invasive 54 mm[Hg] SILVINO PALAKATZLE DO Tyler Hackett 09-08-2024 22:28-0400 Heart rate 92 /min SILVINO CIDATZLE DO Tyler Hackett 09-08-2024 22:28-0400 Reason For Taking VItal Signs SILVINO CIDATZLE DO Tyler Hackett 09-08-2024 22:28-0400 Respiratory rate 16 /min SILVINO CIDATZLE DO [facility] 09-08-2024 22:28-0400 Systolic Blood Pressure Non-Invasive 118 mm[Hg] SILVINO CIDATZLE DO [facility] 09-08-2024 18:21-0400 Heart rate 90 /min SILVINO CIDATZLE DO [facility] 09-08-2024 09:08-0400 Blood Pressure Cuff Size SILVINO CIDATZLE DO [facility] 09-08-2024 09:08-0400 Blood Pressure Location SILVINO CIDATZLE DO [facility] 09-08-2024 09:08-0400 Blood Pressure Method SILVINO CIDATZLE DO [facility] 09-08-2024 09:08-0400 Heart rate 114 /min SILVINO CIDATZLE DO [facility] 09-08-2024 09:08-0400 Reason For Taking VItal Signs SILVINO PALAKATZLE DO [facility] 09-04-2024 10:54-0400 Body temperature 96.62 [degF] SILVINO CIDATZLE DO [facility] 09-03-2024 00:26-0400 Body temperature 97.34 [degF] SILVINO CIDATZLE DO [facility] 08-30-2024 22:54-0400 Body temperature 98.06 [degF] SILVINO CIDATZLE DO [facility] 08-26-2024 10:36-0400 Body weight 76 kg SILVINO RADERLE DO [facility] 08-19-2024 06:00-0400 Body weight 75.3 kg SILVINO CIDATZSHITAL DO [facility] 08-15-2024 14:27-0400 Body height 170.2 cm SILVINO PEARL DO [facility] 08-15-2024 14:27-0400 Body weight 75.4 kg SILVINO PEARL DO [facility] 08-15-2024 14:27-0400 Body weight 26.03 kg/m2 SILVINO PEARL DO [facility] 08-15-2024 09:02-0400 Diastolic blood pressure 69 mm[Hg] Prema Ramos MD Work Phone: [facility] 08-15-2024 09:02-0400 Systolic blood pressure 128 mm[Hg] Prema Ramos MD Work Phone: [facility] 08-15-2024 07:28-0400 Heart rate 86 /min Prema Ramos MD Work Phone: [facility] 08-15-2024 07:18-0400 Body temperature 97.3 [degF] Prema Ramos MD Work Phone: [facility] 08-15-2024 07:18-0400 Respiratory rate 23 /min Prema Ramos MD Work Phone: [facility] 08-15-2024 07:18-0400 SaO2% (BldA) [Mass fraction] 95 % Prema Ramos MD Work Phone: [facility] 08-05-2024 08:00-0400 Body height 170.2 cm Prema Ramos MD Work Phone: 3(617)980-784406 [address] 08-05-2024 08:00-0400 Body mass index (BMI) [Ratio] 26.94 kg/m2 Prema Ramos MD Work Phone: 3(927)058-092006 [address] 08-05-2024 08:00-0400 Body weight 78.02 kg Prema Ramos MD Work Phone: 5(104)058-089509 [place] [address] 08-02-2024 13:52-0400 Body temperature 98 [degF] Dr. Kameron Caruso MD Work Phone: 0(742)058-102885 [place] [address] 08-02-2024 13:52-0400 Diastolic blood pressure 91 mm[Hg] Dr. Kameron Caruso MD Work Phone: 4(559)432-372985 [place] [address] 08-02-2024 13:52-0400 Heart rate 109 /min Dr. Kameron Caruso MD Work Phone: 1(716)496-345485 [place] [address] 08-02-2024 13:52-0400 Respiratory rate 16 /min Dr. Kameron Caruso MD Work Phone: 9(157)610-294485 [place] [address] 08-02-2024 13:52-0400 SaO2% (BldA) [Mass fraction] 98 % Dr. Kameron Caruso MD Work Phone: 2(285)867-661285 [place] [address] 08-02-2024 13:52-0400 Systolic blood pressure 153 mm[Hg] Dr. Kameron Caruso MD Work Phone: 2(722)729-299585 [place] [address] 08-02-2024 12:46-0400 Body height 167.[address] Kameron Caruso MD Work Phone: 5(952)262-594685 [place] [address] 08-02-2024 12:46-0400 Body mass index (BMI) [Ratio] 26.6 kg/m2 Dr. Kameron Caruso MD Work Phone: 1(709)465-534885 [place] [address] 08-02-2024 12:46-0400 Body weight [address] Kameron Caruso MD Work Phone: 0(647)370-648785 [place] [address] 06-26-2024 09:39-0500 Body mass index (BMI) [Ratio] 27.25 kg/m2 Emma Canaleshofreddie STAMP CLASSIFIER.BRONC BUSTER Work Phone: [facility] 06-26-2024 09:39-0500 Body weight 78.93 kg Emma Glasgow STAMP CLASSIFIER.BRONC BUSTER Work Phone: [facility] 06-26-2024 09:39-0500 Diastolic blood pressure 88 mm[Hg] Emma Canaleshof STAMP CLASSIFIER.BRONC BUSTER Work Phone: [facility] 06-26-2024 09:39-0500 Heart rate 93 /min Emma Canaleshof STAMP CLASSIFIER.BRONC BUSTER Work Phone: [facility] 06-26-2024 09:39-0500 Respiratory rate 16 /min Emma Gonzalesf STAMP CLASSIFIER.BRONC BUSTER Work Phone: [facility] 06-26-2024 09:39-0500 SaO2% (BldA) [Mass fraction] 98 % Emma Glasgow STAMP CLASSIFIER.BRONC BUSTER Work Phone: [facility] 06-26-2024 09:39-0500 Systolic blood pressure 144 mm[Hg] Emma Canaleshof STAMP CLASSIFIER.BRONC BUSTER Work Phone: [facility] 05-31-2024 08:56-0500 Diastolic blood pressure 84 mm[Hg] Kameron Caruso MD Work Phone: [facility] 05-31-2024 08:56-0500 Systolic blood pressure 136 mm[Hg] Kameron Caruso MD Work Phone: [facility] 05-31-2024 08:47-0500 Body mass index (BMI) [Ratio] 27.28 kg/m2 Kameron Caruso MD Work Phone: [facility] 05-31-2024 08:47-0500 Body weight 79 kg Kameron Caruso MD Work Phone: [facility] 05-31-2024 08:47-0500 Heart rate 100 /min Kameron Caruso MD Work Phone: [facility] 05-31-2024 08:47-0500 Respiratory rate 18 /min Kameron Caruso MD Work Phone: [facility] 11-28-2023 09:42-0400 Diastolic blood pressure 78 mm[Hg] Kameron Caruso MD Work Phone: [facility] 11-28-2023 09:42-0400 Systolic blood pressure 142 mm[Hg] Kameron Caruso MD Work Phone: [facility] 11-28-2023 09:41-0400 Body mass index (BMI) [Ratio] 27.82 kg/m2 Kameron Caruso MD Work Phone: [facility] 11-28-2023 09:41-0400 Body weight 80.56 kg Kameron Caruso MD Work Phone: [facility] 11-28-2023 09:41-0400 Heart rate 68 /min Kameron Caruso MD Work Phone: [facility] 11-28-2023 09:41-0400 Respiratory rate 18 /min Kameron Caruso MD Work Phone: [facility] 10-10-2023 07:31-0400 Body mass index (BMI) [Ratio] 28.35 kg/m2 David Dupree APRN.BRONC BUSTER Work Phone: [facility] 10-10-2023 07:31-0400 Body temperature 97.5 [degF] David Dupree STAMP CLASSIFIER.BRONC BUSTER Work Phone: [facility] 10-10-2023 07:31-0400 Body weight 82.1 kg David Dupree STAMP CLASSIFIER.BRONC BUSTER Work Phone: [facility] 10-10-2023 07:31-0400 Diastolic blood pressure 82 mm[Hg] David Dupree STAMP CLASSIFIER.BRONC BUSTER Work Phone: [facility] 10-10-2023 07:31-0400 Heart rate 58 /min David Dupree STAMP CLASSIFIER.BRONC BUSTER Work Phone: [facility] 05-28-2024 07:31-0400 Respiratory rate 18 /min David Pakbury STAMP CLASSIFIER.BRONC BUSTER Work Phone: [facility] 10-10-2023 07:31-0400 SaO2% (BldA) [Mass fraction] 100 % David Pakbury STAMP CLASSIFIER.BRONC BUSTER Work Phone: [facility] 10-10-2023 07:31-0400 Systolic blood pressure 128 mm[Hg] David Pakbury STAMP CLASSIFIER.BRONC BUSTER Work Phone: [facility] 09-29-2023 14:14-0400 Body mass index (BMI) [Ratio] 29 kg/m2 Radha Levine STAMP CLASSIFIER.BRONC BUSTER Work Phone: [facility] 09-29-2023 14:14-0400 Body temperature 97.81 [degF] Radha Levine STAMP CLASSIFIER.BRONC BUSTER Work Phone: [facility] 09-29-2023 14:14-0400 Body weight 84 kg Radha Levine STAMP CLASSIFIER.BRONC BUSTER Work Phone: [facility] 09-29-2023 14:14-0400 Diastolic blood pressure 91 mm[Hg] Radha Levine STAMP CLASSIFIER.BRONC BUSTER Work Phone: [facility] 09-29-2023 14:14-0400 Heart rate 54 /min Radha Levine STAMP CLASSIFIER.BRONC BUSTER Work Phone: [facility] 09-29-2023 14:14-0400 Respiratory rate 18 /min Radha Levine STAMP CLASSIFIER.BRONC BUSTER Work Phone: [facility] 09-29-2023 14:14-0400 SaO2% (BldA) [Mass fraction] 99 % Radha Levine STAMP CLASSIFIER.BRONC BUSTER Work Phone: [facility] 09-29-2023 14:14-0400 Systolic blood pressure 148 mm[Hg] Radha Levine STAMP CLASSIFIER.BRONC BUSTER Work Phone: [facility] 05-27-2022 09:42-0500 Body weight 83.83 kg Kameron Caruso MD Work Phone: [facility] 05-27-2022 09:42-0500 Diastolic blood pressure 84 mm[Hg] Kameron Caruso MD Work Phone: [facility] 05-27-2022 09:42-0500 Heart rate 68 /min Kameron Caruso MD Work Phone: [facility] 05-27-2022 09:42-0500 Respiratory rate 16 /min Kameron Caruso MD Work Phone: [facility] 05-27-2022 09:42-0500 Systolic blood pressure 136 mm[Hg] Kameron Caruso MD Work Phone: [facility] 03-02-2022 10:52-0400 Diastolic blood pressure 76 mm[Hg] Emma Tannhof STAMP CLASSIFIER.BRONC BUSTER Work Phone: [facility] 03-02-2022 10:52-0400 Heart rate 92 /min Emma Tannhof STAMP CLASSIFIER.BRONC BUSTER Work Phone: [facility] 03-02-2022 10:52-0400 Respiratory rate 18 /min Emma Tannhof STAMP CLASSIFIER.BRONC BUSTER Work Phone: [facility] 03-02-2022 10:52-0400 Systolic blood pressure 140 mm[Hg] Emma Tannhof STAMP CLASSIFIER.BRONC BUSTER Work Phone: [facility] 11-23-2021 09:39-0400 Body weight 83.1 kg Kameron Caruso MD Work Phone: [facility] 11-23-2021 09:39-0400 Diastolic blood pressure 80 mm[Hg] Kameron Caruso MD Work Phone: [facility] 11-23-2021 09:39-0400 Heart rate 84 /min Kameron Caruso MD Work Phone: [facility] 11-23-2021 09:39-0400 Respiratory rate 16 /min Kameron Caruso MD Work Phone: [facility] 11-23-2021 09:39-0400 Systolic blood pressure 138 mm[Hg] Kameron Caruso MD Work Phone: [facility] 10-16-2019 10:09-0400 BP Diastolic 72 mm[Hg] Santiago Miller [facility] [place] , [place] 10-16-2019 10:09-0400 BP Systolic 144 mm[Hg] Santiago Miller [facility] [place] 10-16-2019 10:09-0400 Pulse (Heart Rate) 62 /min Santiago Miller [facility] [place], [place] 10-16-2019 10:09-0400 Pulse Oximetry 98 % Santiago Miller [facility] [place] , [place] 10-16-2019 10:09-0400 Respiratory Rate 18 /min [facility] [place] 10-16-2019 09:15-0400 BMI (Body Mass Index) 29.44 kg/m2 Santiago Miller [facility], [place] 10-16-2019 09:15-0400 Body Temperature 97.81 [degF] Santiago Miller [facility] 10-16-2019 09:15-0400 Body weight 85.28 kg Santiago Miller [facility] , [place] 10-16-2019 09:15-0400 Height 170.2 cm Santiago Miller [facility] , [place] 01-09-2019 12:06-0400 BP Diastolic 73 mm[Hg] Santiago Miller [facility] [place] , [place] 01-09-2019 12:06-0400 BP Systolic 121 mm[Hg] Santiago Miller [facility] , [place] 01-09-2019 11:50-0400 Pulse (Heart Rate) 64 /min Santiago Miller [facility], [place] 01-09-2019 11:50-0400 Pulse Oximetry 100 % Santiago Miller [facility] , [place] 01-09-2019 11:50-0400 Respiratory Rate 18 /min Santiago Miller [facility] 01-09-2019 10:28-0400 BMI (Body Mass Index) 28.82 kg/m2 Santiago Miller [facility], [place] 01-09-2019 10:28-0400 Body weight 83.46 kg Santiago Miller [facility] , [place] 01-09-2019 10:28-0400 Height 170.2 cm Santiago Miller [facility] , [place] 01-09-2019 10:27-0400 Body Temperature 97.5 [degF] [facility] [place] Encounters Encounter Date Encounter Type Care Provider Facility Start: 03-25-2025 ambulatory E[facility]be [facility] Start: 03-18-2025 ambulatory Efewongbe Oleghe [facility] Start: 03-11-2025 ambulatory Efewongbe Oleghe [facility] Start: 03-04-2025 ambulatory Efewongbe Oleghe [facility] Start: 02-25-2025 ambulatory Efewongbe Oleghe [facility] Start: 02-18-2025 ambulatory Efewongbe Oleghe [facility] Start: 02-18-2025 Safia Martin - [place] Start: 02-11-2025 ambulatory Efewongbe Oleghe [facility] Start: 02-11-2025 Safia Martin - [place] Start: 02-04-2025 ambulatory Efewongbe Oleghe OLS [facility] Start: 02-04-2025 Safia Martin - [place] Start: 01-28-2025 ambulatory Efewongbe Oleghe [facility]LS [facility] Start: 01-28-2025 Safia Martin - [place] Start: 01-21-2025 ambulatory Efewongbe Oleghe OLS [facility] Start: 01-21-2025 Safia Martin - [place] Start: 01-14-2025 ambulatory Efewongbe Oleghe [facility] Start: 01-14-2025 Safia Torres Start: 01-07-2025 End: 01-07-[address] Kameron Caruso MD Work Phone: -Veronica Torres Start: 01-07-2025 End: 01-07-2025 Safia Torres Start: 01-07-2025 End: 01-07-2025 ambulatory Kameron Caruso Facility[facility] Start: 12-31-2024 End: 12-31-[address] Kameron Caruso MD Work Phone: [facility] Start: 12-31-2024 End: 12-31-2024 Dr. Safia Ruelas MD -[facility] Work Phone: Start: 12-24-2024 ambulatory Kameron Caruso [facility]ilit [facility] Start: 12-24-2024 Safia SMOMER L - [place] Start: 12-17-2024 ambulatory Efewongbe Oleghe [facility] Start: 12-17-2024 Safia Martin - [place] Start: 12-10-2024 ambulatory Efewongbe Oleghe [facility] Start: 12-10-2024 Safia SOMMER L - [place] Start: 12-03-2024 ambulatory Efewongbe Oleghe [facility] Start: 12-03-2024 Safia SOMMER L - [place] Start: 11-28-2024 End: 11-28-[address] Kameron Caruso MD Work Phone: [facility] Start: 11-28-2024 End: 11-28-2024 Bret WILKERSON -[facility] Work Phone: Start: 11-26-2024 ambulatory Efewongbe Oleghe [facility] Start: 11-26-2024 Registered Referred Safia Torres Start: 11-26-2024 Safia Martin - [place] Start: 11-25-2024 End: 11-25-[address] Kameron Caruso MD Work Phone: Joseph Torres Start: 11-25-2024 Registered Referred Safia Torres Start: 11-25-2024 End: 11-25-2024 Safia Torres Start: 11-25-2024 End: 11-25-2024 ambulatory Efewongbe Olebonie OLS Facility[facility] Start: 11-20-2024 End: 11-20-[address] Kameron Caruso MD Work Phone: [facility] Start: 11-20-2024 End: 11-20-2024 Bret Snyder MaurisioC -[facility] Work Phone: Start: 11-19-2024 ambulatory Efewongbe Olebonie OLS [facility] Start: 11-19-2024 Registered Referred Safia Torres Start: 11-19-2024 Safia Torres Start: 11-12-2024 End: 11-12-[address] Kameron Caruos MD Work Phone: -GILMA Torres Start: 11-12-2024 Registered Referred Safia Torres Start: 11-12-2024 End: 11-12-2024 Safia Torres Start: 11-12-2024 End: 11-12-2024 ambulatory Efewongbe Olebonie OLS Facility[facility] Start: 11-05-2024 ambulatory Efewongbe Enricoe OLS Fa [facility] Start: 11-05-2024 Registered Referred Safia Torres Start: 11-05-2024 Safia Torres Start: 10-30-2024 End: 10-30-[address] Kameron Caruso MD Work Phone: [facility] Start: 10-30-2024 End: 10-30-2024 Patient encounter procedure Bret Snyder WEB PUBLISHER- -[facility] Work Phone: Start: 10-30-2024 End: 10-30-2024 Bret Snyder WEB PUBLISHER-[facility] Work Phone: Start: 10-29-2024 End: 10-29-[address] Safia Ruelas MD -[facility] Work Phone: Start: 10-29-2024 End: 10-29-[address] Kameron Caruso MD Work Phone: [facility] Start: 10-29-2024 Registered Referred Safia Torres Start: 10-29-2024 End: 10-29-2024 Dr. aSfia Ruelas MD -[facility] Work Phone: Start: 10-29-2024 End: 10-29-2024 ambulatory Safia VARGAS Facility[facility] Start: 10-23-2024 ambulatory Safia Ruelas [facility]LS [facility] Start: 10-23-2024 Registered Referred Safia Torres Start: 10-23-2024 Safia Torres Start: 10-22-2024 End: 10-22-2024 Patient encounter procedure Bret Snyder [facility] Work Phone: Start: 10-22-2024 End: 10-22-[address] Kameron Caruso MD Work Phone: [facility] Start: 10-22-2024 Registered Referred Safia Torres Start: 10-22-2024 End: 10-22-2024 Bret Snyder NP-[facility] Work Phone: Start: 10-15-2024 ambulatory Safia Ruelas [facility] Start: 10-15-2024 Registered Referred Safia Torres Start: 10-15-2024 Safia Torres Start: 10-09-2024 End: 10-09-[address] Kameron Caruso MD Work Phone: [facility] Start: 10-09-2024 End: 10-09-2024 Patient encounter procedure Bret Snyder WEB PUBLISHER- -[facility] Work Phone: Start: 10-09-2024 End: 10-09-2024 Bret Snyder [facility] Work Phone: Start: 10-08-2024 ambulatory Efsherry Ruelas [facility]LS [facility] Start: 10-08-2024 Registered Referred Safia Torres Start: 10-08-2024 Safia Torres Start: 10-02-2024 End: 10-02-[address] Mj Benavides MD -[facility] Work Phone: Start: 10-02-2024 End: 10-02-2024 Dr. Mj Benavides MD -[facility] Work Phone: Start: 10-02-2024 End: 10-02-[address] Kameron Caruso MD Work Phone: [facility] Work Phone: Start: 10-01-2024 ambulatory Efewjosé antonio Ruelas OLS [facility] Start: 10-01-2024 Registered Referred Safia Torres Start: 10-01-2024 Safia Torres Start: 09-29-2024 ambulatory Efewongbe Enricoe OLS [facility] Start: 09-29-2024 Registered Referred Safia Torres Start: 09-29-2024 Safia Torres Start: 09-24-2024 ambulatory Safia Ruelas [facility] Start: 09-24-2024 Registered Referred Safia Torres Start: 09-24-2024 Safia Torres Start: 09-17-2024 ambulatory Safia Ruelas [facility]LS [facility] Start: 09-17-2024 Registered Referred Safia Torres Start: 09-17-2024 Safia Torres Start: 09-11-2024 End: 09-11-2024 ambulatory Bret Snyder WEB PUBLISHER Facility:[facility] Start: 09-11-2024 End: 09-11-2024 Patient encounter procedure Bret Snyder WEB PUBLISHER-C -[facility] Work Phone: Start: 09-11-2024 End: 09-11-2024 Bret Snyder WEB PUBLISHER-C -[facility] Work Phone: Start: 09-10-2024 End: 09-10-[address] Safia Ruelas MD -[facility] Work Phone: Start: 09-10-2024 End: 09-10-2024 ambulatory Kameron Caruso Facility:[facility] Start: 09-10-2024 Registered Referred Safia Torres Start: 09-10-2024 End: 09-10-2024 Dr. Safia Ruelas MD -[facility] Work Phone: Start: 08-30-2024 End: 08-30-2024 Telephone encounter Kameron Caruso MD Work Phone: [facility] Comment on above: Tyler Chucho requesti ng verbal agree to follow Start: 08-15-2024 End: 09-09-2024 Evaluation and management of inpatient SILVINO CIDBEULAH DO [facility] Start: 08-09-2024 Evaluation and manag ement of inpatient KAMERON CARUSO Facility:[facility] Start: 08-06-2024 Evaluation and manag ement of inpatient [facility] Start: 08-02-2024 End: 08-02-2024 ambulatory [facility] Facility:[facility] Start: 08-02-2024 End: 08-15-2024 Evaluation and [...] encounter Kameron Caruso MD Work Phone: [facility] Comment on above: medication not on cu rrent med list Start: 06-26-2024 End: 06-26-2024 Office outpatient visit 25 minutes Emma Glasgow APRN.CNP Work Phone: [facility] [place] Comment on above: Atrial fibrillation, unspecified type (HCC) (Primary Dx); Hypothyroidism, unspecified type; Need for malaria prophylaxis Start: 06-26-2024 End: 06-26-2024 ambulatory [facility] Facility:[facility] Start: 06-25-2024 ambulatory KAMERON CARUSO Facil ity:[facility] Start: 06-24-2024 End: 06-24-2024 Telephone encounter Kameron Caruso MD Work Phone: [facility] [place] Comment on above: Patient Update Start: 06-11-2024 End: 06-11-2024 Telephone encounter Kameron Caruso MD Work Phone: [facility] [place] Comment on above: Results Start: 06-11-2024 End: 06-11-2024 ambulatory [facility] Facility:[facility] Start: 06-10-2024 End: 06-11-2024 Telephone encounter Kameron Caruso MD Work Phone: [facility] [place] Comment on above: Medication Problem Start: 05-31-2024 End: 05-31-2024 ambulatory [facility] Facility:[facility] Start: 05-31-2024 End: 05-31-2024 Patient encounter procedure Kameron Caruso MD Work Phone: [facility] [place] Comment on above: Essential hypertensi [...] unspecified type (HCC) Start: 05-23-2024 End: 05-23-2024 [facility] Facility[facility] Start: 11-28-2023 End: 11-28-2023 [facility] Facility:[facility] Start: 11-28-2023 End: 11-28-2023 Patient encounter procedure Kameron Caruso MD Work Phone: [facility] [place] Comment on above: 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, unspecified CKD stage, unspecified whether prison insulin use (HCC) (Primary Dx); Essential hypertension, benign; Chronic kidney disease, stage 3a (HCC); Hyperlipidemia, unspecified hyperlipidemia type; Hypothyroidism, unspecified type; Edema of left lower leg; Memory loss; Type 2 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, without long-term current use of insulin (HCC) Start: 11-27-2023 End: 11-27-2023 [facility] Facility:[facility] Start: 10-10-2023 End: 10-10-2023 ambulatory KAMERON CARUSO Facility:[facility] Start: 10-10-2023 End: 10-10-2023 Office outpatient visit 25 minutes David Joon STAMP CLASSIFIER.BRONC BUSTER Work Phone: [facility] Comment on above: Rash (Primary Dx) Start: 09-29-2023 End: 09-29-2023 ambulatory KAMERON CARUSO Facility:[facility] Start: 09-29-2023 End: 09-29-2023 Patient encounter procedure Radha Levine STAMP CLASSIFIER.BRONC BUSTER Work Phone: [facility] Comment on above: Allergic contact lexi matitis due to plant (Primary Dx) Start: 09-19-2023 Refill Kameron nixon MD Work Phone: [facility] Comment on above: Refill Request Start: 04-08-2023 Telephone encounter Kameron bucio MD Work Phone: [address] [place] [address] Comment on above: Refill Request Start: 11-25-2022 Telephone encounter Kameron bucio MD Work Phone: [facility] Comment on above: Patient Question Start: 05-27-2022 End: 05-27-2022 Patient encounter procedure Kameron Caruso MD Work Phone: [facility] Comment on above: Essential hypertensi on, benign (Primary Dx); Hypothyroidism, unspecified type; Type 2 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, without long-term current use of insulin (HCC); Hyperlipidemia, unspecified hyperlipidemia type; Chronic kidney disease, stage 3a (HCC); Edema of left lower leg; Wellness examination Start: 05-27-2022 End: 05-27-2022 Patient encounter status Kameron Caruso MD Work Phone: [facility] Start: 04-11-2022 Refill Kameron nixon MD Work Phone: [facility] Comment on above: Refill Request Start: 03-02-2022 ambulatory Kameron nixon MD Work Phone: [facility] [place] Comment on above: Back Pain Start: 03-02-2022 End: 03-02-2022 Patient encounter procedure Emma Glasgow STAMP CLASSIFIER.BRONC BUSTER Work Phone: [facility] [place] Comment on above: Acute midline low ba ck pain without sciatica (Primary Dx) Start: 01-11-2022 Refill Mj ORTIZ RN.BRONC BUSTER Work Phone: [facility] [place] Comment on above: Refill Request Start: 01-11-2022 Refill Kameron nixon MD Work Phone: [facility] [place] Comment on above: Refill Request Start: 12-16-2021 Telephone encounter Kameron bucio MD Work Phone: [facility] [place] Comment on above: Diabetic Testing Sup plies Start: 11-23-2021 End: 11-23-2021 Refill Kameron Caruso MD Work Phone: [facility] [place] Comment on above: 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, unspecified CKD stage, unspecified whether prison insulin use (HCC) (Primary Dx); Essential hypertension, benign; Hyperlipidemia, unspecified hyperlipidemia type; Stage 3b chronic kidney disease (HCC); Hypothyroidism, unspecified type; Memory loss Start: 10-14-2021 Refill Kameron nixon MD Work Phone: [facility] [place] Comment on above: Refill Request Start: 09-27-2021 Telephone encounter Kameron bucio MD Work Phone: [facility] [place] Comment on above: information requeste d/rxs needed Start: 09-13-2021 Telephone encounter Kameron bucio MD Work Phone: [facility] [place] Comment on above: Patient [...] rscp w/mnl difrntl wbc count Dr. Kameron aCruso MD Work Phone: Start: 09-24-2024 Mean corpuscular [...] Phone: Start: 08-15-2024 Assay of magnesium Abram rin Nadine STAMP CLASSIFIER-BRONC BUSTER Work Phone: Start: 08-15-2024 Glucose measurement, blood Christos Gibson MD Work Phone: Start: 08-14-2024 Glucose measurement, blood Christos Gibson MD Work Phone: Start: 08-14-2024 Glucose measurement, blood Christos Gibson MD Work Phone: Start: 08-14-2024 Glucose measurement, blood Christos Gibson MD Work Phone: Start: 08-14-2024 Assay of magnesium Abdoule rin M Nadine STAMP CLASSIFIER-BRONC BUSTER Work Phone: Start: 08-13-2024 Glucose measurement, blood Christos Gibson MD Work Phone: Start: 08-13-2024 Glucose measurement, blood Christos Gibson MD Work Phone: Start: 08-13-2024 Glucose measurement, blood Christos Gibson MD Work Phone: Start: 08-13-2024 Glucose measurement, blood Felicity Castellano MD Work Phone: Start: 08-13-2024 Assay of magnesium Nase rin M Nadine STAMP CLASSIFIER-BRONC BUSTER Work Phone: Start: 08-13-2024 Glucose measurement, blood Felicity Castellano MD Work Phone: Start: 08-12-2024 Glucose measurement, blood Felicity Castellano MD Work Phone: Start: 08-12-2024 Glucose measurement, blood Felicity Castellano MD Work Phone: Start: 08-12-2024 Glucose measurement, blood Felicity Castellano MD Work Phone: Start: 08-12-2024 Assay of magnesium Nase rin M Nadine STAMP CLASSIFIER-BRONC BUSTER Work Phone: Start: 08-12-2024 Glucose measurement, blood Felicity Castellano MD Work Phone: Start: 08-11-2024 Glucose measurement, blood Felicity Castellano MD Work Phone: Start: 08-11-2024 Glucose measurement, blood Felicity Castellano MD Work Phone: Start: 08-11-2024 Glucose measurement, blood Felicity Castellano MD Work Phone: Start: 08-11-2024 Assay of magnesium Nase rin M Nadine STAMP CLASSIFIER-BRONC BUSTER Work Phone: Start: 08-10-2024 Glucose measurement, blood Felicity Castellano MD Work Phone: Start: 08-10-2024 Glucose measurement, blood Felicity Castellano MD Work Phone: Start: 08-10-2024 End: 08-10-2024 Culture bacterial blood aerobic w/id isolates Radha Gr STAMP CLASSIFIER-BRONC BUSTER Work Phone: Start: 08-10-2024 Glucose measurement, blood Felicity Castellano MD Work Phone: Start: 08-10-2024 End: 08-10-2024 Glucose measurement, blood Felicity Castellano MD Work Phone: Start: 08-10-2024 Glucose measurement, blood Felicity Castellano MD Work Phone: Start: 08-10-2024 Assay of magnesium Abram Schulteameh STAMP CLASSIFIER-BRONC BUSTER Work Phone: Start: 08-10-2024 Glucose measurement, blood [...] Start: 08-09-2024 Assay of magnesium Abram Mccoy STAMP CLASSIFIER-BRONC BUSTER Work Phone: Start: 08-09-2024 Glucose measurement, blood Felicity Castellano MD Work Phone: Start: 08-08-2024 Glucose measurement, blood Felicity Castellano MD Work Phone: Start: 08-08-2024 Culture bct isol&prs mptv id isolate ea urine Bella Cardenas STAMP CLASSIFIER-BRONC BUSTER Work Phone: Start: 08-08-2024 EXTRA MICRO Bella matthews STAMP CLASSIFIER-BRONC BUSTER Work Phone: Start: 08-08-2024 URINALYSIS REFLEX TO CULTURE Bella Cardenas STAMP CLASSIFIER-BRONC BUSTER Work Phone: Start: 08-08-2024 Ct head/brain w/o co ntrast material Bella Cardenas STAMP CLASSIFIER-BRONC BUSTER Work Phone: Start: 08-08-2024 Glucose measurement, blood Felicity Castellano MD Work Phone: Start: 08-08-2024 End: 08-08-2024 Glucose measurement, blood Felicity Castellano MD Work Phone: Start: 08-08-2024 Assay of magnesium Abram Mccoy STAMP CLASSIFIER-BRONC BUSTER Work Phone: Start: 08-07-2024 Glucose measurement, blood Felicity Castellano MD Work Phone: Start: 08-07-2024 Glucose measurement, blood Felicity Castellano MD Work Phone: Start: 08-07-2024 Glucose measurement, blood Felicity Castellano MD Work Phone: Start: 08-07-2024 Glucose measurement, blood Felicity Castellano MD Work Phone: Start: 08-06-2024 Glucose measurement, blood Felicity Castellano MD Work Phone: Start: 08-06-2024 Assay of magnesium Abram Mccoy STAMP CLASSIFIER-BRONC BUSTER Work Phone: Start: 08-06-2024 Glucose measurement, blood Felicity Castellano MD Work Phone: Start: 08-06-2024 Glucose measurement, blood Felicity Castellano MD Work Phone: Start: 08-06-2024 Radiologic exam swal low function contrast study Shanna Russ STAMP CLASSIFIER-BRONC BUSTER Work Phone: Start: 08-06-2024 SPEECH MODIFIED KEAGAN UM SWALLOW Shanna Russ STAMP CLASSIFIER-BRONC BUSTER Work Phone: Start: 08-06-2024 Glucose measurement, blood Felicity Castellano MD Work Phone: Start: 08-05-2024 Glucose measurement, blood Felicity Castellano MD Work Phone: Start: 08-05-2024 Assay of magnesium Nase rin Jaiden Nadine STAMP CLASSIFIER-BRONC BUSTER Work Phone: Start: 08-05-2024 Glucose measurement, blood Felicity Castellano MD Work Phone: Start: 08-05-2024 Glucose measurement, blood Felicity Castellano MD Work Phone: Start: 08-05-2024 [facility]mode compl spec&colr d Taran Traore STAMP CLASSIFIER-BRONC BUSTER Work Phone: Start: 08-05-2024 Glucose measurement, blood Felicity Castellano MD Work Phone: Start: 08-05-2024 Assay of magnesium Nase rin Jaiden Nadine STAMP CLASSIFIER-BRONC BUSTER Work Phone: Start: 08-05-2024 Glucose measurement, blood [...] Work Phone: Start: 08-04-2024 Assay of magnesium Nase rin M Nadine STAMP CLASSIFIER-BRONC BUSTER Work Phone: Start: 08-04-2024 Glucose measurement, blood Richard Mejia MD Work Phone: Start: 08-03-2024 Ct head/brain w/o co ntrast material Shaila Méndez PA-C Start: 08-03-2024 Sodium serum plasma or whole blood Shanna Denise MD Work Phone: Start: 08-03-2024 Glucose measurement, blood Richard Mejia MD Work Phone: Start: 08-03-2024 Radiologic exam abdo men 1 view Balbir Jaiden Nadine STAMP CLASSIFIER-BRONC BUSTER Work Phone: Start: 08-03-2024 Glucose measurement, blood [...] brain stem w/o contrast material Taran Traore STAMP CLASSIFIER-BRONC BUSTER Work Phone: Start: 08-03-2024 ABORH TYPE RECONFIRMATION Cindy CORDOVA Work Phone: Start: 08-03-2024 Assay of magnesium Abram scott Jaiden Cardenash STAMP CLASSIFIER-BRONC BUSTER Work Phone: Start: 08-02-2024 Glucose measurement, blood Prema Ramos MD Work Phone: Start: 08-02-2024 End: 08-02-2024 Radex humerus minimum 2 views Shailasincere MOSS-C Start: 08-02-2024 Ct angio abd&plvis c ntrst mtrl w/wo cntrst img Shaila L Ciupak PA-C Start: 08-02-2024 Ct angiography chest w/contrast/noncontrast Sahila L Ciupak PA-C Start: 08-02-2024 Ct orbit sella/post fossa/ear w/o contrast matrl Shaila L Ciupak PA-C Start: 08-02-2024 Ct cervical spine w/ o contrast material Shaila L Ciupak PA-C Start: 08-02-2024 Antibody screen Devyn Ramos MD Work Phone: Start: 08-02-2024 Antibody screen [facility] Comment on above: Performed By: #### X M #### [facility] ([facility], [facility]) [address] [place] [address] Start: 08-02-2024 EXTRA MICRO Taran Traore STAMP CLASSIFIER-BRONC BUSTER Work Phone: Start: 08-02-2024 Hemoglobin glycosylated a1c Balbir Mccoy STAMP CLASSIFIER-BRONC BUSTER Work Phone: Start: 08-02-2024 Hepatic function panel Balbir Mccoy STAMP CLASSIFIER-BRONC BUSTER Work Phone: Start: 08-02-2024 Iadna s aureus ampli fied probe tq Balbir Cardenash STAMP CLASSIFIER-BRONC BUSTER Work Phone: Start: 08-02-2024 URINALYSIS REFLEX TO CULTURE Taran Traore STAMP CLASSIFIER-BRONC BUSTER Work Phone: Start: 08-02-2024 Urnls dip stick/tabl et reagent auto microscopy Taran Traore STAMP CLASSIFIER-BRONC BUSTER Work Phone: Start: 08-02-2024 SARS-CoV-2, Influenz a & RSV (PCR) Dr. Kamerno Caruso MD Work Phone: Start: 08-02-2024 Estimated [...] Author Start: 08-15-2025 Complete blood count Hemoglobin/Hematocrit [facility] Start: 08-15-2025 Creatinine measurement Serum Creatinine [facility] Start: 08-02-2025 Thyroid stimulating hormone measurement [facility] Start: 06-26-2025 Annual PCP Team Chronic Disease Visit Annual PCP Team Chronic Disease Visit [facility] Start: 05-31-2025 Annual PCP Team Chronic Disease Visit Annual PCP Team Chronic Disease Visit [facility] Start: 05-31-2025 Covid-19 Vaccine ( season) Covid-19 Vaccine ( season) [facility] Comment on above: Postponed from 01/14/2024 (Declined at t his time) Start: 05-31-2025 Pneumococcal Vaccine: 50+ (2 of 2 - PPSV23) Pneumococcal Vaccine: 50+ (2 of 2 - PPSV23) [facility] Comment on above: Postponed from 12/19/2019 (Declined at t his time) Start: 05-23-2025 Creatinine measurement Serum Creatinine [facility] Start: 05-23-2025 Hepatitis B screening Urine Albumin:Creatinine Ratio [facility] Start: 05-23-2025 Hepatitis B surface antibody level LDL Cholesterol [facility] Start: 03-04-2025 -[facility] - [facility] Start: 02-25-2025 -[facility] - [facility] Start: 02-02-2025 [facility]c [facility] Start: 01-13-2025 Influenza vaccination [facility] Start: 01-03-2025 Glaucoma screening Dilated Retinal Exam [facility] Start: 12-24-2024 End: 12-24-2024 Patient encounter procedure 12/24/2024 9:20 AM EDT Office Visit Family [facility] [address] [place] [address] Kameron Caruso MD [address] [place], [place] [phone] 6 month follow up Family [facility] Comment on above: 6 month follow up Start: 11-28-2024 End: 02-27-2025 Comprehensive metabolic 2000 panel - Serum or Plasma COMPREHENSIVE METABOLIC PANEL Lab Routine Essential hypertension, benign Chronic kidney disease, stage 3a (HCC) Hyperlipidemia, unspecified hyperlipidemia type Expected: 11/28/2024 (Approximate), Expires: 02/27/2025 [facility] Work Phone: Comment on above: Expected: 11/28/2024 (Approximate), Expi res: 02/27/2025 Start: 11-28-2024 End: 02-27-2025 Hemoglobin A1c in Blood HEMOGLOBIN A1C Lab Routine Expected: 11/28/2024 (Approximate), Expires: 02/27/2025 [facility] Comment on above: Expected: 11/28/2024 (Approximate), Expi res: 02/27/2025 Start: 11-28-2024 End: 02-27-2025 Lipid 1996 panel - Serum or Plasma LIPID PANEL BASIC Lab Routine Essential hypertension, benign Hyperlipidemia, unspecified hyperlipidemia type Expected: 11/28/2024 (Approximate), Expires: 02/27/2025 [facility] Comment on above: Expected: 11/28/2024 (Approximate), Expi res: 02/27/2025 Start: 11-28-2024 End: 02-27-2025 Thyrotropin [Units/volume] in Serum or Plasma THYROID STIMULATING HORMONE Lab Routine Hypothyroidism, unspecified type Expected: 11/28/2024 (Approximate), Expires: 02/27/2025 [facility] Comment on above: Expected: 11/28/2024 (Approximate), Expi res: 02/27/2025 Start: 11-27-2024 Annual PCP Team Chronic Disease Visit Annual PCP Team Chronic Disease Visit [facility] Start: 11-27-2024 Anxiety Screening Anxiety Screening [facility] Start: 11-27-2024 Depression Screening Depression Screening [facility] Start: 11-27-2024 RSV Vaccine (1 - 1-dose 60+ series) RSV Vaccine (1 - 1-dose 60+ series) [facility] Comment on above: Postponed from 2004 (Declined at t his time) Start: 11-27-2024 RSV Vaccine (1 - 1-dose 75+ series) RSV Vaccine (1 - 1-dose 75+ series) [facility] Comment on above: Postponed from 10/26/2019 (Declined at t his time) Start: 11-26-2024 Creatinine measurement Serum Creatinine [facility] Start: 11-26-2024 Hepatitis B surface antibody level LDL Cholesterol [facility] Start: 11-20-2024 Hemoglobin A1c measurement HbA1C [facility] Start: 11-11-2024 Influenza vaccination Influenza Vaccine (#1) [facility] Comment on above: Postponed from 01/14/2024 (Declined at t his time) Start: 10-08-2024 End: 10-08-2024 ambulatory [facility] Start: 10-02-2024 Evaluation of diagnostic study results 12 Lead EKG performed by [facility] Start: 08-02-2024 [facility] Start: 08-02-2024 SARS-CoV-2, Influenza & RSV (PCR) SARS-CoV-2, Influenza & RSV (PCR) [facility] Start: 08-02-2024 End: 08-02-2024 [facility] Start: 08-02-2024 Electrocardiographic procedure [facility] Start: 08-02-2024 Oxygen therapy [facility] Start: 07-24-2024 End: 10-23-2024 Thyrotropin [Units/volume] in Serum or Plasma THYROID STIMULATING HORMONE Lab Routine Hypothyroidism, unspecified type Expected: 07/24/2024, Expires: 10/23/2024 [facility] Work Phone: Comment on above: Expected: 07/24/2024, Expires: Start: 07-24-2024 End: 10-23-2024 Thyroxine (T4) free [Mass/volume] in Serum or Plasma T4 FREE/FREE THYROXINE Lab Routine Hypothyroidism, unspecified type Expected: 07/24/2024, Expires: 10/23/2024 [facility] Comment on above: Expected: 07/24/2024, Expires: Start: 06-25-2024 End: 06-25-2024 Patient encounter procedure 06/25/2024 9:40 AM EST Office Visit Family [facility] [place] [address] [place], [place] [phone] Kameron Caurso MD [address] [place], [place] [phone] 1 mo f/u, new dx afib. [facility] [place] Comment on above: 1 mo f/u, new dx afib. Start: 06-11-2024 End: 06-11-2024 Patient encounter procedure 06/11/2024 8:50 AM EST Office Visit Cardiology [address] [place], [place] [phone] Atrial fibrillation, unspecified type (HCC) [I48.91] [facility] Comment on above: Atrial fibrillation, unspecified type (H CC) [I48.91] Start: 05-30-2024 Annual PCP Team Chronic Disease Visit Annual PCP Team Chronic Disease Visit [facility] Start: 05-30-2024 End: 08-29-2024 Comprehensive metabolic 2000 panel - Serum or Plasma COMPREHENSIVE METABOLIC PANEL Lab Routine Type 2 diabetes mellitus with diabetic chronic kidney disease, unspecified CKD stage, unspecified whether prison insulin use (HCC) Essential hypertension, benign Chronic kidney disease, stage 3a (HCC) Hyperlipidemia, unspecified hyperlipidemia type Expected: 05/30/2024 (Approximate), Expires: 08/29/2024 [facility] Work Phone: Comment on above: Expected: 05/30/2024 (Approximate), Expi res: 08/29/2024 Start: 05-30-2024 Covid-19 Vaccine ( season) Covid-19 Vaccine ( season) [facility] Comment on above: Postponed from 01/13/2023 (Declined at t his time) Start: 05-30-2024 End: 08-29-2024 Hemoglobin A1c in Blood HEMOGLOBIN A1C Lab Routine Type 2 diabetes mellitus with diabetic chronic kidney disease, unspecified CKD stage, unspecified whether prison insulin use (HCC) Expected: 05/30/2024 (Approximate), Expires: 08/29/2024 [facility] Comment on above: Expected: 05/30/2024 (Approximate), Expi res: 08/29/2024 Start: 05-30-2024 Hepatitis C screening Hepatitis C Screening [facility] Comment on above: Postponed from 1962 (Declined at t his time) Start: 05-30-2024 End: 08-29-2024 Lipid 1996 panel - Serum or Plasma LIPID PANEL BASIC Lab Routine Type 2 diabetes mellitus with diabetic chronic kidney disease, unspecified CKD stage, unspecified whether prison insulin use (HCC) Essential hypertension, benign Hyperlipidemia, unspecified hyperlipidemia type Expected: 05/30/2024 (Approximate), Expires: 08/29/2024 [facility] Comment on above: Expected: 05/30/2024 (Approximate), Expi res: 08/29/2024 Start: 05-30-2024 End: 08-29-2024 Microalbumin/Creatinine [Mass Ratio] in Urine ALBUMIN/CREATININE RATIO, URINE Lab Routine Type 2 diabetes mellitus with diabetic chronic kidney disease, unspecified CKD stage, unspecified whether termination clerk insulin use (HCC) Expected: 05/30/2024 (Approximate), Expires: 08/29/2024 [facility] Comment on above: Expected: 05/30/2024 (Approximate), Expi res: 08/29/2024 Start: 05-30-2024 Pneumococcal Vaccine: 65+ (2 of 2 - PPSV23 or PCV20) Pneumococcal Vaccine: 65+ (2 of 2 - PPSV23 or PCV20) [facility] Comment on above: Postponed from 12/19/2019 (Declined at t his time) Start: 05-30-2024 End: 08-29-2024 Thyrotropin [Units/volume] in Serum or Plasma THYROID STIMULATING HORMONE Lab Routine Hypothyroidism, unspecified type Expected: 05/30/2024 (Approximate), Expires: 08/29/2024 [facility] Comment on above: Expected: 05/30/2024 (Approximate), Expi res: 08/29/2024 Start: 05-30-2024 End: 05-30-2024 Patient encounter procedure 05/30/2024 9:40 AM EST Office Visit Family [facility] [address] [place] [phone] Kameron Caruso MD [address] [place] [place] [place] [id number] 6 mo f/u Family [place] [facility] Comment on above: 6 mo f/u Start: 05-29-2024 Hemoglobin A1c measurement HbA1C [facility] Start: 05-16-2024 Creatinine measurement Serum Creatinine [facility] Start: 05-16-2024 Hepatitis B screening Urine Albumin:Creatinine Ratio [facility] Start: 05-16-2024 Hepatitis B surface antibody level LDL Cholesterol [facility] Start: 05-15-2024 Advance Directive Discussion Advance Directive Discussion [facility] Start: 01-14-2024 Influenza vaccination [facility] Start: 01-14-2024 [facility] Start: 01-04-2024 Glaucoma screening Dilated Retinal Exam [facility] Start: 01-04-2024 Hepatitis C antibody, confirmatory test Dilated Retinal Exam [facility] Start: 11-28-2023 End: 11-28-2023 Patient encounter procedure 11/28/2023 9:40 AM EDT Office Visit Family [place] [facility] [address] [place] [id number] Kameron Caruso MD [address] [place] [address] 6 mo follow up Family [place] [facility] Comment on above: 6 mo follow up Start: 11-26-2023 ANNUAL PCP TEAM CHRONIC DISEASE VISIT ANNUAL PCP TEAM CHRONIC DISEASE VISIT [facility] Start: 11-26-2023 BP CONTROLLED (<130/80) BP CONTROLLED (<130/80) [facility] Start: 11-23-2023 Complete blood count Hemoglobin/Hematocrit [facility] Start: 11-23-2023 HEMOGLOBIN/HEMATOCRIT HEMOGLOBIN/HEMATOCRIT [facility] Start: 11-23-2023 Hepatitis B surface antibody level LDL CHOLESTEROL [facility] Start: 11-23-2023 SERUM CREATININE SERUM CREATININE [facility] Start: 11-14-2023 Hemoglobin A1c [facility] Start: 05-27-2023 ANNUAL PCP TEAM CHRONIC DISEASE VISIT ANNUAL PCP TEAM CHRONIC DISEASE VISIT [facility] Start: 05-27-2023 COVID-19 VACCINE (2 - Booster for Alyssa series) COVID-19 VACCINE (2 - Booster for Alyssa series) [facility] Comment on above: Postponed from 09/17/2020 (Declined at t his time) Start: 05-27-2023 HEPATITIS C SCREENING HEPATITIS C SCREENING [facility] Comment on above: Postponed from 1962 (Declined at t his time) Start: 05-25-2023 Hemoglobin A1c/Hemoglobin.total in Blood HBA1C [facility] Start: 05-19-2023 HEMOGLOBIN/HEMATOCRIT HEMOGLOBIN/HEMATOCRIT [facility] Start: 05-19-2023 Hepatitis B surface antibody level LDL CHOLESTEROL [facility] Start: 05-19-2023 SERUM CREATININE SERUM CREATININE [facility] Start: 05-15-2023 Advance Directive Discussion Advance Directive Discussion [facility] Start: 05-15-2023 Behavioral Health Screening Behavioral Health Screening [facility] Start: 03-02-2023 ANNUAL PCP TEAM CHRONIC DISEASE VISIT ANNUAL PCP TEAM CHRONIC DISEASE VISIT [facility] Start: 01-13-2023 Covid-19 Vaccine ( season) Covid-19 Vaccine ( season) [facility] Start: 01-13-2023 Influenza vaccination [facility] Start: 12-27-2022 Hepatitis C antibody, confirmatory test DILATED RETINAL EXAM [facility] Start: 11-24-2022 End: 01-24-2023 CBC panel - Blood by Automated count CBC Lab Routine Essential hypertension, benign Hypothyroidism, unspecified type Expected: 11/24/2022 (Approximate), Expires: 01/24/2023 [facility] Work Phone: Comment on above: Expected: 11/24/2022 (Approximate), Expi res: 01/24/2023 Start: 11-24-2022 End: 01-24-2023 Comprehensive metabolic 2000 panel - Serum or Plasma COMP METABOLIC PANEL Lab Routine Essential hypertension, benign Type 2 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, without long-term current use of insulin (HCC) Hyperlipidemia, unspecified hyperlipidemia type Expected: 11/24/2022 (Approximate), Expires: 01/24/2023 [facility] Work Phone: Comment on above: Expected: 11/24/2022 (Approximate), Expi res: 01/24/2023 Start: 11-24-2022 End: 01-24-2023 Hemoglobin A1c in Blood HGB A1C Lab Routine Type 2 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, without long-term current use of insulin (HCC) Expected: 11/24/2022 (Approximate), Expires: 01/24/2023 [facility] Work Phone: Comment on above: Expected: 11/24/2022 (Approximate), Expi res: 01/24/2023 Start: 11-24-2022 End: 01-24-2023 Lipid 1996 panel - Serum or Plasma LIPID PANEL BASIC Lab Routine Essential hypertension, benign Type 2 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, without long-term current use of insulin (HCC) Hyperlipidemia, unspecified hyperlipidemia type Expected: 11/24/2022 (Approximate), Expires: 01/24/2023 [facility] Work Phone: Comment on above: Expected: 11/24/2022 (Approximate), Expi res: 01/24/2023 Start: 11-24-2022 End: 01-24-2023 Thyrotropin [Units/volume] in Serum or Plasma TSH BLD Lab Routine Hypothyroidism, unspecified type Expected: 11/24/2022 (Approximate), Expires: 01/24/2023 [facility] Work Phone: Comment on above: Expected: 11/24/2022 (Approximate), Expi res: 01/24/2023 Start: 11-23-2022 3 comp foot exam completed DIABETIC FOOT EXAM [facility] Start: 11-23-2022 ANNUAL PCP TEAM CHRONIC DISEASE VISIT ANNUAL PCP TEAM CHRONIC DISEASE VISIT [facility] Start: 11-23-2022 Diabetic foot examination Diabetic Foot Exam [facility] Start: 11-20-2022 Hepatitis B screening URINE ALBUMIN:CREATININE RATIO [facility] Start: 11-20-2022 Hepatitis B surface antibody level LDL CHOLESTEROL [facility] Start: 11-20-2022 SERUM CREATININE SERUM CREATININE [facility] Start: 11-16-2022 Hemoglobin A1c/Hemoglobin.total in Blood HBA1C [facility] Start: 11-11-2022 Influenza vaccination INFLUENZA (#1) [facility] Comment on above: Postponed from 01/13/2022 (Declined at t his time) Start: 05-26-2022 End: 07-26-2022 CBC panel - Blood by Automated count CBC Lab Routine Essential hypertension, benign Stage 3b chronic kidney disease (HCC) Expected: 05/26/2022 (Approximate), Expires: 07/26/2022 [facility] Work Phone: Comment on above: Expected: 05/26/2022 (Approximate), Expi res: 07/26/2022 Start: 05-26-2022 End: 07-26-2022 Comprehensive metabolic 2000 panel - Serum or Plasma COMP METABOLIC PANEL Lab Routine Type 2 diabetes mellitus with diabetic chronic kidney disease, unspecified CKD stage, unspecified whether termination clerk insulin use (HCC) Essential hypertension, benign Hyperlipidemia, unspecified hyperlipidemia type Stage 3b chronic kidney disease (HCC) Expected: 05/26/2022 (Approximate), Expires: 07/26/2022 [facility] Work Phone: Comment on above: Expected: 05/26/2022 (Approximate), Expi res: 07/26/2022 Start: 05-26-2022 End: 07-26-2022 Hemoglobin A1c in Blood HGB A1C Lab Routine Type 2 diabetes mellitus with diabetic chronic kidney disease, unspecified CKD stage, unspecified whether prison insulin use (HCC) Expected: 05/26/2022 (Approximate), Expires: 07/26/2022 [facility] Work Phone: Comment on above: Expected: 05/26/2022 (Approximate), Expi res: 07/26/2022 Start: 05-26-2022 End: 07-26-2022 Lipid 1996 panel - Serum or Plasma LIPID PANEL BASIC Lab Routine Essential hypertension, benign Hyperlipidemia, unspecified hyperlipidemia type Expected: 05/26/2022 (Approximate), Expires: 07/26/2022 [facility] Work Phone: Comment on above: Expected: 05/26/2022 (Approximate), Expi res: 07/26/2022 Start: 05-26-2022 End: 07-26-2022 Thyrotropin [Units/volume] in Serum or Plasma TSH BLD Lab Routine Hypothyroidism, unspecified type Expected: 05/26/2022 (Approximate), Expires: 07/26/2022 [facility] Work Phone: Comment on above: Expected: 05/26/2022 (Approximate), Expi res: 07/26/2022 Start: 05-23-2022 Hemoglobin A1c/Hemoglobin.total in Blood HBA1C [facility] Start: 05-18-2022 ANNUAL PCP TEAM CHRONIC DISEASE VISIT ANNUAL PCP TEAM CHRONIC DISEASE VISIT [facility] Start: 05-17-2022 Hepatitis B surface antibody level LDL CHOLESTEROL [facility] Start: 05-17-2022 SERUM CREATININE SERUM CREATININE [facility] Start: 05-15-2022 ADVANCE DIRECTIVE DISCUSSION ADVANCE DIRECTIVE DISCUSSION [facility] Start: 01-13-2022 Influenza vaccination [facility] Start: 01-11-2022 Hepatitis C antibody, confirmatory test DILATED RETINAL EXAM [facility] Start: 11-14-2021 Hemoglobin A1c/Hemoglobin.total in Blood HBA1C [facility] Start: 11-06-2021 Screening for malignant neoplasm of breast [facility] Start: 11-05-2021 3 comp foot exam completed DIABETIC FOOT EXAM [facility] Start: 11-05-2021 Adult depression screening assessment DEPRESSION SCREENING [facility] Start: 11-04-2021 Hepatitis B screening URINE ALBUMIN:CREATININE RATIO [facility] Start: 10-15-2021 Hepa vaccine adult dose for intramuscular use HEPATITIS A VACCINE ADULT IM Immunization/Injection Routine Need for vaccination Expected: 10/15/2021 [facility] Work Phone: Comment on above: Expected: 10/15/2021 Start: 10-15-2021 Tdap vaccine 7 yrs/> im TDAP VACCINE AGE 7+ IM Immunization/Injection Routine Need for vaccination Expected: 10/15/2021 [facility] Work Phone: Comment on above: Expected: 10/15/2021 Start: 05-15-2021 ADVANCE DIRECTIVE DISCUSSION ADVANCE DIRECTIVE DISCUSSION [facility] Start: 05-15-2021 DEPRESSION ASSESSMENT DEPRESSION ASSESSMENT [facility] Start: 10-23-2020 PNEUMOCOCCAL: 65+ (2 - PPSV23 if available, else PCV20) PNEUMOCOCCAL: 65+ (2 - PPSV23 if available, else PCV20) [facility] Start: 10-23-2020 PNEUMOCOCCAL: 65+ (2 - PPSV23 or PCV20) PNEUMOCOCCAL: 65+ (2 - PPSV23 or PCV20) [facility] Start: 10-16-2020 HEMOGLOBIN/HEMATOCRIT HEMOGLOBIN/HEMATOCRIT [facility] Start: 09-17-2020 COVID-19 VACCINE (2 - Booster for Alyssa series) COVID-19 VACCINE (2 - Booster for Alyssa series) [facility] Start: 12-19-2019 Pneumococcal vaccination [facility] Start: 12-19-2019 Pneumococcal Vaccine: 65+ (2 - PPSV23 or PCV20) Pneumococcal Vaccine: 65+ (2 - PPSV23 or PCV20) [facility] Start: 12-19-2019 PNEUMOCOCCAL: 65+ (2 - PPSV23 or PCV20) PNEUMOCOCCAL: 65+ (2 - PPSV23 or PCV20) [facility] Start: 11-08-2019 Screening for malignant neoplasm of colon [facility] Start: 10-26-2019 [facility] Start: 01-13-2019 Influenza vaccination Flu vaccine (#1) [place], [place] Start: 12-23-2018 Annual Wellness Visit (AWV) Annual Wellness Visit (AWV) [place] Start: 2009 DEXA (modify frequency per FRAX score) DEXA (modify frequency per FRAX score) [place] Start: 2009 Pneumococcal 65+ years Vaccine (1 of 1 - PPSV23) Pneumococcal 65+ years Vaccine (1 of 1 - PPSV23) [place] Start: 2009 Pneumococcal 65+ years Vaccine (1 of 2 - PCV13) Pneumococcal 65+ years Vaccine (1 of 2 - PCV13) [place] Start: 10-26-2007 Annual Wellness Visit (AWV) Annual Wellness Visit (AWV) [place] Start: 2004 Hepatitis B Vaccine (1 of 3 - Risk 3-dose series) Hepatitis B Vaccine (1 of 3 - Risk 3-dose series) [facility] Start: 2004 RSV Vaccine (1 - 1-dose 60+ series) RSV Vaccine (1 - 1-dose 60+ series) [facility] Start: 10-26-1999 Screening for osteoporosis DEXA (modify frequency per FRAX score) [place] Start: 1994 Breast cancer screen Breast cancer screen [place] Start: 1994 Colon cancer screen colonoscopy Colon cancer screen colonoscopy [place] Start: 1994 Screening for malignant neoplasm of breast Breast cancer screen [place] Start: 1994 Screening for malignant neoplasm of colon Colon cancer screen colonoscopy [place] Start: 1994 Shingles Vaccine (1 of 2) Shingles Vaccine (1 of 2) [place] Start: 1984 Lipid screen Lipid screen [place] Start: 1965 Screening for malignant neoplasm of cervix [facility] Start: 10-26-1963 DTaP/Tdap/Td vaccine (1 - Tdap) DTaP/Tdap/Td vaccine (1 - Tdap) [place] Start: 10-26-1963 Third diphtheria, tetanus and acellular pertussis (DTaP) vaccination [facility] Start: 10-26-1963 Urine microalbumin profile [facility] Start: 1962 BP CONTROLLED (<130/80) BP CONTROLLED (<130/80) [facility] Start: 1962 HEPATITIS C SCREENING HEPATITIS C SCREENING [facility] Start: 1954 Lipid panel Lipid screen [place], [place] Start: 1944 Creatinine measurement Creatinine monitoring [place], [place] Start: 1944 Creatinine monitoring Creatinine monitoring [place], [place] Start: 1944 Hepatitis C screen Hepatitis C screen [place] Start: 1944 Hepatitis C screening [facility] Start: 1944 Potassium monitoring Potassium monitoring [place] Start: 1944 Screening for osteoporosis [facility] Start: 1944 Tetanus vaccination [facility] End: 01-09-2019 Blood glucose - POCT Blood glucose - POCT Point of Care Testing Routine One Time for 1 Occurrences starting 01/09/2019 until 01/09/2019 [place] Comment on above: One Time for 1 Occurrences starting 12/14 until 01/09/2019 ECG COMPLETE [facility] Comment on above: Ordered: 05/31/2024 End: 05-31-2025 Echocardiography ECHO Cardiology Routine Atrial fibrillation, unspecified type (HCC) 1 Occurrences starting 05/31/2024 until 05/31/2025 [facility] Comment on above: 1 Occurrences starting 05/31/2024 until 05/31/2025 Patient referral [facility] Work Phone: End: 01-09-2019 Pulse Oximetry Spot Check Pulse Oximetry Spot Check Respiratory Care Routine One Time for 1 Occurrences starting 01/09/2019 until 01/09/2019 [place] Comment on above: One Time for 1 Occurrences starting 12/14 until 01/09/2019 End: 08-02-2024 PV FLUOROSCOPY OR U [facility] End: 08-02-2024 Standard ECG [facility] Immunizations Immunization Date Immunization Notes Care Provider Fa sonya 07-23-2020 SARS-CoV-2 (COVID-19 ) Ad26 vaccine, recombinant SILVINO PEARL DO Tyler Garcia Comment on above: Result Comment: 2024: [id number] 02-27-2020 influenza, high dose seasonal, preservative-free Kameron Caruso MD Work Phone: [facility] 02-27-2020 influenza virus vaccine, unspecified formulation Kameron Caruso MD Work Phone: [facility] 10-24-2019 pneumococcal conjuga te vaccine, 13 valent Kameron Caruso MD Work Phone: [facility] 10-24-2019 zoster vaccine recombinant Kameron Caruso MD Work Phone: [facility] 07-25-2019 influenza virus vaccine, unspecified formulation SILVINO PEARL DO [facility] 07-25-2019 influenza, seasonal, injectable Kameron Caruso MD Work Phone: [facility] 07-25-2019 zoster vaccine recombinant Kameron Caruso MD Work Phone: [facility] 04-13-2015 influenza virus vaccine, unspecified formulation SILVINO PEARL DO [facility] 05-01-2014 influenza virus vaccine, unspecified formulation SILVINO PEARL DO [facility] 05-01-2014 influenza, high dose seasonal, preservative-free Kameron Caruso MD Work Phone: [facility] 02-22-2012 influenza virus vaccine, unspecified formulation Kameron Caruso MD Work Phone: [facility] Work Phone: 03-19-2007 influenza virus vaccine, unspecified formulation Kameron Caruso MD Work Phone: [facility] Work Phone: Payers Date Payer Category Payer Medicare [id number] 2024 Unknown [id number] 2024 Self-pay 2018 Medicare [employer]-MEDICA RE ADVANTAGE [employer]ICARE ADVANTAGE xxxxxxxxxxx 2018-Present [phone] [address] [place] [address] xxxxxxxxxxx [id number] 2018 Unknown [id number] 2013 [place] [id number] 2013-Present [phone] [address] [place] [address] O [id number] [id number] .[id number] 2013 Medicare [id number] 1.13.159.2 .[id number] 2013 Medicare (Managed Care) 1.2. [id number] .[id number] 2013 Medicare [id number] 1944 Unknown [id number] 2.16.840.1.674402.3.579.2 .627 1944 Unknown [id number] 2.16.840.1.667273.3.579.2 .732 1944 Unknown [id number] 2.16.840.1.051793.3.579.2 .594 1944 Unknown [id number] 2.16.840.1.929591.3.579.2 .594 1944 Unknown [id number] 2.16.840.1.069686.3.579.2 .627 Unknown [id number] 2.16.840.1.325286.3.579.2 .462 Unknown [id number] 2.16.840.1.337431.3.579.2 .462 Unknown [id number] 2.16.840.1.463158.3.579.2 .462 Unknown [id number] 2.16.840.1.244997.3.579.2 .462 Unknown [id number] 2.16.840.1.648869.3.579.2 .462 Unknown [id number] 2.16.840.1.453364.3.579.2 .462 Unknown [id number] 2.16840.1.081237.3.579.2 .462 Unknown [id number] 2.16840.1.479675.3.579.2 .462 Unknown [id number] 2.16.840.1.038923.3.579.2 .462 Unknown [id number] 2.840.1.881364.3.579.2 .462 Unknown [id number] 2.840.1.666372.3.579.2 .462 Unknown [id number] 2.840.1.340744.3.579.2 .462 Unknown [id number] 2.840.1.394821.3.579.2 .462 Unknown [id number] 2.840.1.582576.3.579.2 .462 Unknown [id number] 2.840.1.271478.3.579.2 .462 Unknown [id number] 2.840.1.940464.3.579.2 .462 Unknown [id number] 2.840.1.653335.3.579.2 .462 Unknown [id number] 2.840.1.786325.3.579.2 .462 Unknown [id number] 2.840.1.070314.3.579.2 .462 Unknown [id number] 2.840.1.769657.3.579.2 .462 Unknown [id number] 2.840.1.478931.3.579.2 .462 Unknown [id number] 2.840.1.053472.3.579.2 .462 Unknown [id number] 2.840.1.181671.3.579.2 .462 Unknown [id number] 2.840.1.431023.3.579.2 .462 Unknown [id number] 2.840.1.765137.3.579.2 .462 Unknown [id number] 2..840.1.357178.3.579.2 .462 Unknown [id number] 2.16.840.1.814146.3.579.2 .462 Unknown [id number] 2.16.840.1.882381.3.579.2 .462 Unknown [id number] 2.840.1.834289.3.579.2 .462 Unknown [id number] 2.840.1.252387.3.579.2 .462 Unknown [id number] 2.840.1.189208.3.579.2 .462 Unknown [id number] 2.840.1.895275.3.579.2 .462 Unknown [id number] 2.840.1.515264.3.579.2 .462 Unknown [id number] 2.840.1.092510.3.579.2 .462 Unknown [id number] 2.840.1.764995.3.579.2 .462 Unknown [id number] 2.840.1.249860.3.579.2 .462 Unknown [id number] 2.840.1.660059.3.579.2 .462 Unknown [id number] 2.840.1.201742.3.579.2 .462 Unknown [id number] 2.840.1.010354.3.579.2 .462 Unknown [id number] 2.840.1.477648.3.579.2 .462 Unknown [id number] 2.840.1.941126.3.579.2 .462 Unknown [id number] 2.840.1.894747.3.579.2 .462 Unknown [id number] 2.840.1.511171.3.579.2 .462 Social History Date Type Detail Facility Start: 01-09-2019 End: 08-02-2024 Tobacco smoking status NHIS Never smoker [facility] Start: 01-09-2019 End: 11-25-2022 Alcohol intake Never [facility] Work Phone: Start: 12-24-2018 History SDOH Alcohol [facility] Start: 1945 [facility] Start: 10-16-2019 Alcohol intake Lifetime non-d hortencia (finding) [place] Exposure to SARS-CoV -2 (event) [facility] [place] Start: 05-18-2021 End: 06-26-2024 Alcohol intake Current non-drinker of alcohol (finding) [facility] Start: 11-13-2021 End: 03-02-2022 Exposure to SARS-CoV-2 (event) Not sure [facility] Start: 02-02-2011 End: 03-02-2022 Tobacco use and exposure Smokeless tobacco non-user [facility] Start: 11-25-2022 End: 11-28-2023 History of Social function [facility] Work Phone: Adult Depression Screening Assessment 0 [facility] Work Phone: Start: 06-22-2005 End: 08-02-2024 Sex Female (finding[facility] Start: 1945 Sex Assigned At Female [facility] Sexual Orientation [facility] Medical Equipment Procedure Code Equipment Code Equipment Original Text Equipment Identifier Dates [id number], [id number], [id number] Start: 11-30-2020 End: 04-08-2023 Comment on above: [...] Functional Status Room check performed Gillian anny Hackett 09-09-2024 Functional Status [facility] 09-09-2024 Functional Status Skin Care Prev entative Intervention(s) heel(s)s elevated Tyler Hackett 09-08-2024 Functional Status [facility] 09-08-2024 Functional Status [facility] 09-06-2024 Functional Status 11pm-7am [facility] 09-06-2024 Functional Status Antiembolism S tocking On/Re-applied bilateral knee high [facility] 09-05-2024 Functional Status Oral Care [facility] Functional Status [facility] 09-05-2024 Functional Status Done [facility] 09-04-2024 Functional Status [facility] 09-04-2024 Functional Status [facility] 09-03-2024 Functional Status NPO Status Maintained A maryamgonzalo Hackett 09-03-2024 Functional Status None [facility] 09-03-2024 Functional Status [facility] 08-29-2024 Functional Status [facility] 08-29-2024 Functional Status [facility] 08-27-2024 Functional Status Orthotics, Dev ice Worn Per Schedule Yes [facility] 08-27-2024 Functional Status [facility] 08-26-2024 Functional Status [facility] 08-23-2024 Functional Status [facility] 08-23-2024 Functional Status Breakfast Percent 25 Gillian [facility] 08-20-2024 Functional Status [facility] 08-19-2024 Functional Status [facility] 08-16-2024 Functional Status Single level h ome, basement laundry [facility] 08-16-2024 Functional Status Outside Stairs Rail Rail on left going up [facility] 08-15-2024 Functional Status Sensory Defici ts Speech deficit [facility] 10-14-2014 Are you deaf, or do you have serious difficulty hearing No [facility] 10-14-2014 Are you blind, or do you have serious difficulty seeing, even when wearing glasses No [facility] 10-14-2014 Do you have serious difficulty walking or climbing stairs No [facility] 10-14-2014 Do you have difficul ty dressing or bathing No [facility] 10-14-2014 Because of a physica l, mental, or emotional condition, do you have difficulty doing errands alone such as visiting a physician's office or shopping No [facility] Mental Status Date Assessment Result Facility 09-09-2024 Mental Status Does not interact [facility] stahl 09-08-2024 Mental Status Tyler Chandni jenkins 09-08-2024 Mental Status Tyler Chandni jenkins 08-02-2024 Cognitive function Awake;Alert;[facility] Work Phone: 10-14-2014 Because of a physica l, mental, or emotional condition, do you have serious difficulty concentrating, remembering, or making decisions No [facility] Clinical Notes 11-03-2020 to 10-02-2024 Note Date & Type Note Facility 10-02-2024 Evaluation note Diagnosis Onset Date Resolution Acute ischemic right MCA stroke acute October 02, 2024 9:29am Essential hypertension acute 2024 9:29am Hyperlipidemia acute October 02, 2024 9:29am Paroxysmal atrial fibrillation with RVR acute October 02, 2024 9:29am [facility] Work Phone: 1(135) 992-907404-28-2025 Note Discharge Instructions Thank you for allowing [...] KAMERON CARUSO MD When:Within 3-7 days Where:[address] [place] [address]- Additional Information: Please schedule follow up PCP appointment for after discharge from SNF, Bring discharge instructions with you Follow Up with RIMMA POWERS MD When:10/08/2024 04:00 PM EDT Where:[facility] ([address], [place]) Additional Information: Neurosurgeon The Following Activity and [...] standard right Seat cushion, 99 month(s), Tyler [id number], 09/02/24 8:22:00 EDT Transfer of Care Wound [...] depending on your insurance coverage. Check with [employer] company about what is covered. Keeping follow-up [...] 08/04/2017 Document Revised: 05/04/2018 Document Reviewed: 08/04/2017 [employer] Patient Education 2020 [employer] Additional Information VACCINATE! IT SAVES LIVES! Members of the community who have not yet received the COVID-19 vaccine and would like to receive it can visit one of [facility] vaccine clinics. There are many vaccine clinic locations within the [facility]. For locations and available times, please visit [email or web address] It is important to note that some COVID mobile vaccine clinics are held outdoors and may be canceled in rainy or stormy conditions. To learn more about pediatric vaccinations (ages 5-11), we invite you to visit the [facility] webpage. [email or web address] [email or web address] learn more about the COVID-19 vaccine, we invite you to visit the CDC website for a list of frequently asked questions.https://www.cdc.gov/coronavirus/2019-ncov/vaccines/faq.html [facility] Patient Portal Access Instructions: Stay connected with your healthcare team and access your personal medical information anytime with the [facility] [employer] Patient Portal. Please follow the directions below to create your [facility] [employer] account: 1.Access the email account you provided upon registration to the hospital/physician office.2.Look for an invitation email from [facility].3.Open the email and access the invitation link: AcceptInvitation to [facility].4.Fill in the required richards to create your account. To access your account, visit [email or web address]. Click the blue button labeled "Access Patient [...] who you will allowto register on the [facility] [facility] Patient Portal for access to your information. You can also access the [facility] [place] Patient Portal on the [place] [facility] dahlia. Simply click on "Patient Portal" and then log into your account. If you would like to receive a full copy of your medical records, please contact the [facility] Medical Records Department by calling [phone], Monday through Monday between 8 a.m. and [...] Call your local pharmacy or go to http://bit.ly/6D3Wy8x to find one close to you.3.Make use of household items: Use cat litter or old coffee grounds to dispose medications if other options arenot available. Mix your drugs with these household products, seal them in an airtight container andthrow it into the garbage. Call [facility]: [phone] to be sure your drugs can be [...] aware that I should contact my doctor. 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 Signature: Date/Time: Relationship to Patient: Witness Name/Signature: Date/Time: Tyler [id number] Note Discharge Instructions Thank you for allowing [...] KAMERON CARUSO MD When:Within 3-7 days Where:[address] [place] [address]- Additional Information: Please schedule follow up PCP appointment for after discharge from SNF, Bring discharge instructions with you Follow Up with RIMMA POWERS MD When:10/08/2024 04:00 PM EDT Where:[facility] ([address], [place] [address] [place]) Additional Information: Neurosurgeon The Following Activity and [...] standard right Seat cushion, 99 month(s), Tyler [id number], 09/02/24 8:22:00 EDT Transfer of Care Wound [...] depending on your insurance coverage. Check with [employer] about what is covered. Keeping follow-up visits [...] 08/04/2017 Document Revised: 05/04/2018 Document Reviewed: 08/04/2017 [employer] Patient Education 2020 [employer]. Additional Information VACCINATE! IT SAVES LIVES! Members of the community who have not yet received the COVID-19 vaccine and would like to receive it can visit one of [facility] vaccine clinics. There are many vaccine clinic locations within the [facility]. For locations and available times, please visit [email or web address] It is important to note that some COVID mobile vaccine clinics are held outdoors and may be canceled in rainy or stormy conditions. To learn more about pediatric vaccinations (ages 5-11), we invite you to visit the [facility] webpage. [email or web address] [email or web address] learn more about the COVID-19 vaccine, we invite you to visit the CDC website for a list of frequently asked questions.https://www.cdc.gov/coronavirus/2019-ncov/vaccines/faq.html [facility] Patient Portal Access Instructions: Stay connected with your healthcare team and access your personal medical information anytime with the [facility] Patient Portal. Please follow the directions below to create your [facility] account: 1.Access the email account you provided upon registration to the hospital/physician office.2.Look for an invitation email from [facility].3.Open the email and access the invitation link: AcceptInvitation to [facility].4.Fill in the required richards to create your account. To access your account, visit [facility]/People and [facility]. Click the blue button labeled "Access Patient Portal" and then log in with the username and password that you created in the steps above. You will be able to view your test results, lab results, a summary of your visits, upcoming appointments and more. There is also a convenient messaging option where you can send secure messages to your p [employer]. In addition, you will have the ability to download any documents or summaries to your computer and/or send the information securely to a physician. Remember that your healthcare information is confidential, so carefully consider who you will allowto register on the [facility] Patient Portal for access to your information. You can also access the [facility] Patient Portal on the [place] [employer] [facility] [employer] dahlia. Simply click on "Patient Portal" and then log into your account. If you would like to receive a full copy of your medical records, please contact the [facility] Medical Records Department by calling [phone], Monday through Monday between 8 a.m. and [...] Call your local pharmacy or go to http://bit.Cool de Sac/3O3Wc7b to find one close to you.3.Make use of household items: Use cat litter or old coffee grounds to dispose medications if other options arenot available. Mix your drugs with these household products, seal them in an airtight container andthrow it into the garbage. Call [facility]: [phone] to be sure your drugs can be [...] aware that I should contact my doctor. 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 Signature: Date/Time: Relationship to Patient: Witness Name/Signature: Date/Time: Tyler [id number] Physical medicine and rehab Discharge summary Date [...] in discharge valuation. She was admitted to [facility] inpatient rehab unit from [facility] stay 08/02 [...] self-care assistance needs decision made to request intermediate facility. Approval is requested. Patient was to [...] Ordered -- 08/15/24 17:18:00 EDT, AMI HEATON APRN-BRONC BUSTER, [facility] per policy Physical Exam Vitals [...] oral tablet)1 tab(s) PEG tube every day. mjrgwnqlkcgux42 Microgram PEG tube once a day. metoprolol [...] KAMERON CARUSO MD When:Within 3-7 days Where:[address] [place] [address]- Additional Information: Please schedule follow up PCP appointment for after discharge from SNF, Bring discharge instructions with you Follow Up with RIMMA POWERS MD When:10/08/2024 04:00 PM EDT Where:[facility] ([address], [address] [place]) Additional Information: Neurosurgeon Follow Up Appointments No qualifying data available. Follow Up Labs/Studies Discharge Labs No Follow-up Labs Discharge Studies No Follow-up Studies Discharge Diet No qualifying data available. Discharge Activity No qualifying data available. Condition on Discharge Stable Discharge Disposition prison facility Information Provided To Patient and family Time Spent Greater than 35 minutes Digitally Signed by SILVINO PEARL DO on 09/09/2024 01:46 PM [place] [id number] Nurse Progress note Nursing GG Entered On: 09/09/2024 10:55 EDT Performed On: 09/09/2024 10:55 EDT by Abigail Rodas RN Nursing GG's OT GG Grid Eating : Not Completed Abigail Rodas RN - 09/09/2024 10:55 EDT Digitally Signed by Abigail Rodas RN on 09/09/2024 10:55 AM [place] [address]-27-2025 Nurse Progress note Nursing GG Entered On: 09/08/2024 17:39 EDT Performed On: 09/08/2024 17:39 EDT by Rob Alarcon RN Nursing GG's OT GG Grid Eating : Not Completed Oral Hygiene : Not Completed Toilet Hygiene : Substantial/Maximal Assistance Toilet Transfer : Substantial/Maximal Assistance Rob Alarcon RN - 09/08/2024 17:39 EDT Digitally Signed by Rob Alarcon RN on 09/08/2024 05:39 PM [address]27-2025 Nurse Progress note Pt had 250ml residual, 12:30pm bolus was held! Digitally Signed by Rob Alarcon RN on 09/08/2024 12:47 PM [place] [address]-25-2025 Physical medicine and rehab Progress note Rehab [...] candidate. She was then transferred to a [facility] for further management. CT of head [...] Rate64(SEP 05 16:46)64(SEP 05 16:46)85(SEP 05 09:40) CSV106(SEP 05 16:36)138(SEP 05 16:36)H 158(SEP 05 09:52) [...] SILVINO PEARL DO on 09/06/2024 12:34 PM Tyler Kpaukuyq51-59-4854 Hospital Discharge instructions Patient Education 09/05/2024 14:15:00 [...] depending on your insurance coverage. Check with [employer] company about what is covered. Keeping follow-up [...] 08/04/2017 Document Revised: 05/04/2018 Document Reviewed: 08/04/2017 [employer] Patient Education 2020 [employer] Follow Up Care 08/15/2024 08:51:25 With:RIMMA POWERS MD Address: [facility] ([address], [address] [place]) When:10/08/2024 16:00:00 Comments:Neurosurgeon With:JONNIE BANSAL MD Address: [facility] When: Unknown Comments:GI, No appointment needed until PEG is ready to be removed or concerns arise With:KAMERON CARUSO MD Address: [address] [place] [address]- When:3-7 days Comments:Please schedule follow up PCP [...] less than 3 seconds. Ongoing hemiparesis VITALS OutwpvFihmYPCqfhrPRNvD0OQG5ObsdKn(kg) 09/05 09:5236.3--173503NO 09/05 09:40----85----RA 09/04 23:3236.6--294052QW 09/04 21:2436.5--921050LQ 09/04 16:01----71----RA 24 Hr Tmax: 36.6 at [...] None Problems (6) CVA (cerebral vascular accident) (958562061) Diabetes mellitus (158847356) Dysphagia (48731722) Hyperlipidemia (40975413) Hypertension (0203726494) Osteoarthritis (4267793298) ASSESSMENT/PLAN: Right basal ganglia hemorrhage, status post thrombectomy with revascularization follow-up appointment with neurosurgery on 10/08. Continue work with physical and Occupational Therapy with goal to return home at discharge. reports that referrals have been sent to intermediate facilities yesterday. Currently has 4 options in [...] complete. Digitally Signed by CATHERINE DUEÑAS on 09/05/2024 04:55 PM Tyler GarciaPqyrwtsp41-74-8933 Physical medicine and rehab Progress note Subjective [...] area Neuro: Left upper extremity hemiparesis VITALS RiclxaRjwzKEMbejwXJEjD1KUQ1IsodIz(kg) 09/04 23:3236.6--676445AY 09/04 21:2436.5--511501XB 09/04 16:01----72----RA 09/04 12:10--------97RA 09/04 10:5435.9--288852OR 24 Hr Tmax: 36.6 at 09/04 23:32 [...] tab(s), PEG, Daily, 08/15/24 17:09:00 EDT balsam Ararat-castor oil topical (Venelex 788 mg-87 mg/g topical [...] SBP (mmHg) < 110, 1st dose location: [facility], , 08/15/24 17:09:00 EDT Active PRN [...] REPEAT x1., 1st dose location: [facility], 0, 08/15/24 1... glucose (Dextrose 50% [...] None Problems (6) CVA (cerebral vascular accident) (244390667) Diabetes mellitus (125000849) Dysphagia (05024825) Hyperlipidemia (82883562) Hypertension (4254700978) Osteoarthritis (8541581309) ASSESSMENT/PLAN: Acute right basal ganglia hemorrhage with [...] HUTTON DO on 09/05/2024 10:12 AM Tyler Kbkwkads47-98-0556 Physical medicine and rehab Progress note Rehab [...] candidate. She was then transferred to a [facility] for further management. CT of head [...] Rate64(SEP 03 15:52)64(SEP 03 15:52)90(SEP 03 08:28) EXP914(SEP 04 05:38)112(SEP 04 05:38)127(SEP 03 08:00) DBP70(SEP [...] software and may contain typographical errors. I, R. Wojtasik RN, am scribing for , and in the presence of Dr. Dae PALMER. I, Dr. Dae PALMER, personally performed the services described in this documentation, as scribed by, Destiny Santiago RN in my presence and it is both accurate and complete. Digitally Signed by SILVINO PEARL DO on 09/04/2024 11:55 AM Tyler GarciaAngrgzks85-92-3476 Note Subjective Patient states she is doing [...] area Neuro: Left upper extremity hemiparesis VITALS MihcaeSbqrEFWrdrgORQfM5PXF5MhirRr(kg) 09/03 21:4136.4--011183GY 09/03 15:52----64---- 09/03 08:46 09/03 08:28----90---- 09/03 08:0036.4--272769FN 24 Hr Tmax: 36.4 at 09/03 21:41 [...] SBP (mmHg) < 110, 1st dose location: [facility], 1, 08/15/24 17:09:00 EDT oxybutynin (oxybutynin [...] 2 minutes, REPEAT x1., 1st dose location: [facility], 0, 08/15/24 1... glucose (Dextrose 50% [...] None Problems (6) CVA (cerebral vascular accident) (629767341) Diabetes mellitus (481587289) Dysphagia (17575553) Hyperlipidemia (53268870) Hypertension (7013252919) Osteoarthritis (9620398263) ASSESSMENT/PLAN: Acute right basal ganglia hemorrhage with [...] HUTTON DO on 09/05/2024 08:57 AM Tyler GarciaVhhpdzcr84-22-7000 Note Subjective Patient states that she is [...] area Neuro: Left upper extremity hemiparesis VITALS VlrvacQdjwZVHvquyERSbF8RPO1FwzxId(kg) 09/03 00:2636.3--619458GN 09/02 21:5136.2--435392KY 09/02 16:56----88--98RA 09/02 10:40 RA 09/02 09:0936.0--934817KZ 24 Hr Tmax: 37.0 at 09/02 05:55 [...] < 110, 1st dose location: [facility], 1, 08/15/24 17:09:00 EDT oxybutynin (oxybutynin [...] None Problems (6) CVA (cerebral vascular accident) (226663207) Diabetes mellitus (525221612) Dysphagia (45630494) Hyperlipidemia (74169490) Hypertension (1501522781) Osteoarthritis (9351363105) ASSESSMENT/PLAN: Acute right basal ganglia hemorrhage with [...] NANDO HUTTON DO on 09/05/2024 08:57 AM [facility]* Exam Date Time Procedure Performing Provider Status 09/02/24 2:[address] Head or Brain w/o Contrast Brenda MCCLELLAN MD; Auth (Verified) [id number] ORIGINAL HISTORY: Lethargy COMPARISON: No TECHNIQUE: Routine [...] 09/02/2024 3:10:44 PM Ordering Provider: SILVINO Scott [id number] Telephone encounter Note* Telephone Encounter - Fouzia Miller LPN - 08/30/2024 10:09 AM EDT Marya Scott [facility] notified. [facility]04-18-2025 Miscellaneous Notes* Telephone Encounter - Fouzia Miller LPN - 08/30/2024 10:09 AM EDT Marya Scott [facility] notified. * Telephone Encounter - Mj Glover APRN.CNP - 08/30/2024 9:19 AM EDT Please let know that Dr. Caruso's team will follow orders. Okay to proceed. Mj Glover APRN.CNP * Telephone Encounter - Jaiden Paulino RN - 08/30/2024 9:07 AM EDT [facility] reports patient was in [facility] with dx: stroke, and transferred to [facility]. Pt will be discharged from [facility] on 09/07/24 to home with [facility] SN PT OT [facility] & [facility]. Asking if pcp agreeable to follow for HHC. Please phone Marya with verbal: [phone] [facility] Telephone encounter Note * Telephone Encounter - Mj Glover APRN.CNP - 08/30/2024 9:19 AM EDT Please let know that Dr. Caruso's team will follow HH orders. Okay to proceed. Mj Glover APRN.CNP [facility]04-18-2025 Telephone encounter Note* Telephone Encounter - Jaiden Paulino RN - 08/30/2024 9:07 AM EDT [facility] reports patient was in [facility] with dx: stroke, and transferred to [facility]. [facility] to home with [facility] SN PT OT [facility] & [facility]. Asking if pcp agreeable to follow for HHC. Please phone Marya with verbal: [phone] [facility]04-14-2025 Note REFERRING PHYSICIAN: Silvino Pearl DO. CONSULTING PSYCHOLOGIST: Matthew Gibson, PhD. REASON FOR REFERRAL: Neuropsychological exam. HISTORY OF PRESENT ILLNESS: Ms. Acuna is a 78-year-old right-handed white female admitted to [facility] from [facility] on 08/15/2024 after developing left-sided weakness [...] mild concussions suffered after a career in [employer]. No residual deficits reported. 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 MENTAL HEALTH HISTORY: No [...] of NPO. and Mrs. Acuna live in [place]. 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 She has a high school diploma from her hometown in [place], [place]. TEST RESULTS: I used the Cognistat, [...] be determined. MATTHEW GIBSON, PhD LESLIE/SHANNON JOB#: [id number] DICTATION ID#: [id number] Digitally Signed by MATTHEW GIBSON PhD on 08/27/2024 08:21 AM [facility]Bfqqfoaq27-42-1224 Note* Exam Date Time Procedure Performing Provider Status 08/25/24 1:46 PM XR Hand and Wrist 6 Views Left Buck LAY DO; Auth (Verified) [id number] ORIGINAL EXAMINATION: 3 XRAY VIEWS OF THE [...] 08/25/2024 2:27:26 PM Ordering Provider: JACKLYN Scott [id number] Note* Exam Date Time Procedure Performing Provider Status 08/25/24 1:45 PM XR Shoulder Minimum 2 Views Left JAMAR LAY DO; Auth (Verified) [id number] ORIGINAL EXAMINATION: TWO XRAY VIEWS OF THE [...] 08/25/2024 2:26:45 PM Ordering Provider: JACKLYN Scott [id number] Note* Exam Date Time Procedure Performing Provider Status 08/25/24 1:43 PM XR Humerus Minimum 2 Views Left ROSANNEJAMAR ; Auth (Verified) [id number] ORIGINAL EXAMINATION: TWO XRAY VIEWS OF THE [...] 08/25/2024 2:26:11 PM Ordering Provider: JACKLYN Scott [id number] Note* Exam Date Time Procedure Performing Provider Status 08/18/24 3:08 PM XR Chest 1 View Contributor_system, FUJ I; Auth (Verified) [id number] ORIGINAL EXAMINATION: ONE XRAY VIEW OF THE [...] Plan noteExtracted from: Title:Clinical Document Author:EZEQUIEL TURCIOS RN-BRONC BUSTER Date:08/16/24 Acute Inpatient Rehab Histor y and Physical Date of Service: 08/16/2024 Date of Admission: 08/15/2024 Attending Physician: Dr. Pearl [facility] 1.1 left body involvement, right brain stroke Etiologic Diagnosis Hemorrhagic infarct involving right basal ganglia, mass effect with effacement of right lateral ventricle, tiny infarct in right cerebellum History of Present Illness 78-year-old female noted to home in inpatient rehab from [facility] stay 08/02 - 08/15 who is [...] candidate. She was then transferred to a [facility] for further management. CT of head [...] feedings. Patient deemed medically stable transferred to [facility] unit for physical and occupational [...] with spouse, first- floor set up. Primary Independent Contractor: Self. Safe place to go: Yes. Lives [...] Rate80(AUG 15 20:06)80(AUG 15 20:06)80(AUG 15 20:06) UEB462(AUG 16 00:03)128(AUG 16 00:03)140(AUG 15 17:47) DBP76(AUG 16 00:03)76(AUG 16 00:03)80(AUG 15 17:47) 36hr Labs 08/15 1805 Blood Glucose, Xrphwbitw267N Blood Glucose, Uezsznywh434B Blood Glucose TSee Flowsheet Assessment/Plan Debility and [...] and it is both accurate and complete. [facility] 04-04-2025 Physical medicine and rehab Consult note INPATIENT REHAB MEDICAL CONSULT DATE OF ADMISSION: 08/16/2024 CC: Acute right basal hemorrhage HISTORY OF PRESENT ILLNESS: This is a 78-year-old female admitted to [facility] unit from [facility] stay 08/02 [...] was deemed medically stable and transferred to [facility] inpatient [facility] unit for physical and occasional [...] Rate80(AUG 15 20:06)80(AUG 15 20:06)80(AUG 15 20:06) TXE939(AUG 16 00:03)128(AUG 16 00:03)140(AUG 15 17:47) DBP76(AUG [...] reviewed. 36hr Labs / 1805 Blood Glucose, Dxptxrrfc652Q Blood Glucose, Kodosbutl084G Blood Glucose TSee Flowsheet ASSESSMENT AND PLAN: [...] will follow during acute rehabilitation stay at [facility] with the goal [...] by CATHERINE DUEÑAS on 08/17/2024 04:53 PM Tyler GarciaMziwspeg65-50-1786 Physical medicine and rehab History and physical [...] noted to home in inpatient rehab from [facility] stay 08/02 -08/15 who is past [...] candidate. [facility] showed [...] feedings. Patient deemed medically stable transferred to [facility] unit for physical and occupational [...] with spouse, first- floor set up. Primary Independent Contractor: Self. Safe place to go: Yes. Lives [...] Rate80(AUG 15 20:06)80(AUG 15 20:06)80(AUG 15 20:06) QFL782(AUG 16 00:03)128(AUG 16 00:03)140(AUG 15 17:47) DBP76(AUG 16 00:03)76(AUG 16 00:03)80(AUG 15 17:47) 36hr Labs 08/15 1805 Blood Glucose, Iivsmpycp572I Blood Glucose, Xlrpigszc204E Blood Glucose TSee Flowsheet Assessment/Plan Debility and [...] by EZEQUIEL TURCIOS on 08/22/2024 05:17 AM Tyler GarciaPozclqxs55-03-8559 Miscellaneous Notes* Nursing Notes - Robson Steel [...] pacing over x3-5 sessions Outcome: Ongoing Problem: CHIEF DESIGN ENGINEER - Cognition Goal: Orientation Log - [...] pacing over x3-5 sessions Outcome: Ongoing Problem: CHIEF DESIGN ENGINEER - Cognition Goal: Orientation Log - [...] for buried bumper syndrome. - If used prison, initial PEG should be changed in 6-12 months depending on tube condition. - No plans for repeat outpatient EGD at this time based on clinical status Jonnie cMcabe MD Division of Gastroenterology, Hepatology, and Nutrition Clinical Fellow PGY-4 Pager: [phone] * Plan of Care - Manisha Cheema [...] what the specific medication was. Daughter, Keagan [phone] would be able to answer questions. Catherine [...] 08/07/2024 5:00 PM EDT On admission to 0S, from another [facility] inpatient unit a dual [...] oropharyngeal swallow function to most appropriately guide CHIEF DESIGN ENGINEER plan of care Outcome: Met Goal: [...] readiness for diet advancement Outcome: Met Problem: CHIEF DESIGN ENGINEER - Cognition Goal: Orientation Log - [...] better assess deficits and most appropriately guide CHIEF DESIGN ENGINEER plan of care Outcome: Met Goal: [...] of Care: 1. Diet: NPO. Advancement per team/CHIEF DESIGN ENGINEER recommendation 2. Ordered TF: Glucerna 1.5 [...] readiness for diet advancement Outcome: Ongoing Problem: CHIEF DESIGN ENGINEER - Cognition Goal: Orientation Log - [...] better assess deficits and most appropriately guide CHIEF DESIGN ENGINEER plan of care Outcome: Ongoing * Nursing Notes - Aniyah Torre RN - 08/02/2024 6:13 PM EDT On admission to [facility], from [place] a [...] change from previous assessment. Pt transferred to [facility] via cart accompanied by Denae [...] under emergency consent. SURGEON(S): Prema Ramos MD CITY COUNCIL MEMBER(S): None ANESTHESIA: Monitored anesthesia care DESCRIPTION OF [...] Freeclimb 70/Serjio 7 was advanced over a WeGameman microcatheter which was advanced over a synchro [...] - 08/02/2024 3:26 PM EDT Lindsay Acuna ([id number]) PRE OPERATIVE DIAGNOSIS Cerebral infarction due to [...] - Primary ANESTHESIOLOGIST Anesthesiologist: Tameka Ruth MD WIRELESS MANAGER: Bebo Barboza APRN-WIRELESS MANAGER SURGICAL STAFF Customer Support Assistant: Rachell Ruffin RN Sleeper Cutter: Paulina Muñiz; Radha Morales COMPLICATIONS None ESTIMATED BLOOD LOSS Minimal SPECIMENS No specimen sent * No specimens in log * Prema Ramos MD August 02, 2024 3:26 PM [facility] History of Present illness Narrative* OWEN Benavides - 08/15/2024 9:01 AM EDT Care Management Discharge Note Selected Continued Care - Admitted Since 08/02/2024 Destination Coordination complete. Service Provider Services Address Phone Fax Patient Preferred [facility] [address] [place] [phone] -- Internal Comment last updated by OWEN Benavides 08/15/2024 0901 Report fax: [phone] Transport Request Mode of Transfer: [facility] Name of Discharge Transport Company: [facility] ETA: 08/15/2024 @ 1030 Patient medically stable for discharge per physician/medical team. Pt has neurology appointment scheduled. Pt/ to schedule appointment with PCP. 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 remain in agreement withthe discharge plan. BULMARO Allen Proration Clerk * OWEN Benavides - 08/14/2024 3:17 PM [...] numbersfor RN report tomorrow morning. BULMARO Allen Proration Clerk * Marybeth Ayoub - 08/14/2024 2:51 PM EDT Care Management Progress Note Transportation for discharge arranged Mode of Transfer: (P) S Name of Discharge Transport Company: (P) [facility] ETA: (P) 08/15/2024 @ 1030 Pick-up from [facility] 1032/A Destination Tyler ALVARADO [address] [facility] [address] OWEN [address] Proration Clerk Coal Digger [phone] * Jazzy Aguiar - 08/14/2024 9:47 AM [...] position Mobility Assessment/Intervention: Supine to Sit Mobility Davison Level: Supine->Sit: moderate assist (50% patient effort) Physical Assist: Supine->Sit: 2 person assist Bed Features/Set-up: Supine->Sit: Head of bed elevated, Use of bed rail Skilled Rationale: Verbal cues, Tactile cues, Hand placement, Positioning, Technique of activity Skilled Intervention/Details: Supine->Sit: Cues for technique of transfer and pt needing increased assistance for managing legs and trunk to EOB positioning Transfer Assessment/Intervention: Sit to Stand Transfer Davison Level: Sit->Stand: moderate assist (50% patient effort) [...] hand held support Stand to Sit Transfer Davison Level: Stand->Sit: moderate assist (50% patient effort) Physical Assist: Stand->Sit: 2 person assist Assistive Device: Stand->Sit: gait belt, hand held assist Skilled Rationale: Verbal cues, Tactile cues, Hand placement, Positioning, Controlled descent for sitting Skilled Intervention/Details: Stand->Sit: Cues for positioning with BSC and recliner, pt provided bilat hand held support and needing increased support for managing a controlled descent Bed-Chair Transfer Davison Level: Bed<->Chair: maximum assist (25% patient effort) [...] managing L side during transfer Toilet Transfer Davison Level: Toilet: moderate assist (50% patient effort) [...] upright gaze when standing Outcome Score(s): CURRENT [facility] Daily Activity Inpatient Short Form Putting on/Taking Off Lower Body Clothin - Total Assistance Bathin - A Lot of Assistance Toiletin - Total Assistance Putting on/Taking Off Upper Body Clothin - A Little Assistance Groomin - A Little Assistance Eatin - Total Assistance CURRENT [facility] Activity Raw Score: 11 CURRENT [facility] Activity Functional Limitation/Modifier: 70.42% Currently Impaired in [...] person, Oriented to place, Oriented to situation ("[place]" "hospital" "May" "2024" "stroke") Following Commands: Follows [...] blocking Mobility Assessment/Intervention: Supine to Sit Mobility Davison Level: Supine->Sit: moderate assist (50% patient effort) [...] sitting) Transfer Assessment/Intervention: Sit to Stand Transfer Davison Level: Sit->Stand: moderate assist (50% patient effort) Physical Assist: Sit->Stand: 2 person assist Assistive Device: Sit->Stand: gait belt Skilled Rationale: Arm in arm, Patellar block, Ischial assist, Facilitate anterior shift, Full extension to upright positioning/posture, Finding/maintaining midline positioning Skilled Intervention/Details: Sit->Stand: repeat cues to avoid significant L lean with improvement last standing. x1 from EOB, x2 from BSC Stand to Sit Transfer Davison Level: Stand->Sit: moderate assist (50% patient effort) Physical Assist: Stand->Sit: 2 person assist Assistive Device: Stand->Sit: gait belt Skilled Rationale: Arm in arm, Controlled descent for sitting Skilled Intervention/Details: Stand->Sit: last trial assisted R hand to recliner arm rest and ongoing cues for wt shift to R Bed-Chair Transfer Davison Level: Bed<->Chair: maximum assist (25% patient effort) [...] Mobility Assessment/Intervention: Stairs Assessment/Intervention: Outcome Score(s): CURRENT [facility] Basic Mobility Inpatient Short Form Turning over in bed: 2 - A Lot of Assistance Moving from lying on back to sittin - Total Assistance Moving to and from bed to chair: 1 - Total Assistance Sitting/standing from chair: 2 - A Lot of Assistance Walk in hospital room: 1 - Total Assistance Climbing 3-5 steps with a railin - Total Assistance CURRENT [facility] Mobility Raw Score: 8 CURRENT [facility] Mobility Functional Limitation: 86.62% Impaired in Basic [...] 10 Treating Therapist: Shaina Rosales PT, DPT [id number] 08/14/2024 Additional Details: PT Co-Eval/Treatment Information Co-evaluation/co-treatment [...] on the below outcome measures/assessment score(s) and CHIEF DESIGN ENGINEER clinicaljudgment, discharge destination recommendation is: IPR Barriers to discharge home: 1:1 assist needed for IADL's including medication management and finances Supporting factors for discharge setting: Impaired swallow function limiting nutritional status andsafety with oral intake, Impaired cognitive skills limiting safety/insight Acute CHIEF DESIGN ENGINEER Outcomes Tracking Communicate basic wants and [...] independent carry over. Strong family support. Ongoing CHIEF DESIGN ENGINEER s indicated. Subjective information: Alert, present. SO referenced his notes from yesterday and reportedcarry over of exercises yesterday. Patient with zero recall Pain: Nonverbal indicator not present Precautions: Patient Safety Communication Prior to Visit: Nursing Lines/Tubes/Drains (Rehab Status): Telemetry, Tube feed Existing Precautions/Restrictions: fall Respiratory Status: O2 Sat (%): 96 % (08/14 0711) O2 Device: room air (08/14 0947) Acute CHIEF DESIGN ENGINEER Goals Plan of Care by Tanja Cason CHIEF DESIGN ENGINEER at 08/14/2024 2:42 PM Version 1 [...] RoM to achieve technique. Outcome: Ongoing Problem: CHIEF DESIGN ENGINEER - Cognition Goal: Orientation Log - [...] next session: 08/14 - ongoing exercises, education CHIEF DESIGN ENGINEER Outcomes: FOIS 2 Speech Language Pathologist: Tanja Cason CHIEF DESIGN ENGINEER Time In: 836 Time Out: 904 Total Visit Time: 28 minutes Total Treatment Time (skilled, billable minutes): 28 minutes Non-billable assistance during session: na Assisted by during session: na PPE used during patient interaction: gloves Patient location/status at end of session: bed with head of bed elevated Patient alarms at end of session: none altered Needs in reach. CHIEF DESIGN ENGINEER Evaluation and Treatment Time Speech Therapy - Individual 23792: 14 Swallowing Dysfunction Treatment 59931: 14 Upon discontinuation of Acute Care Speech [...] on the below outcome measures/assessment score(s) and CHIEF DESIGN ENGINEER clinicaljudgment, discharge destination recommendation is: Inpatient Rehab Facility Barriers to discharge home: 1:1 assist needed for IADL's including medication management and finances Supporting factors for discharge setting: Impaired swallow function limiting nutritional status andsafety with oral intake, Impaired cognitive skills limiting safety/insight Acute CHIEF DESIGN ENGINEER Outcomes Tracking Communicate basic wants and [...] O2 Device: room air (08/13 710) Acute CHIEF DESIGN ENGINEER Goals Plan of Care by Tanja Cason CHIEF DESIGN ENGINEER at 08/13/2024 11:10 AM Version 1 [...] 10 reps this session. Outcome: Ongoing Problem: CHIEF DESIGN ENGINEER - Cognition Goal: Orientation Log - [...] considerations: Cognition Patient Instruction/Education comments: Role of CHIEF DESIGN ENGINEER, presence and normalized frustration with cognitive-communicative impairments. Focused on memory this date and that patient does not recall education so perseverative questions are normal. Reviewed intermittent silent aspiration from MBS last weekand ongoing signs of dysphagia this session, will plan to coordinate timing for repeat instrumentalwith care team Plan for next session: 08/13 -fair CHIEF DESIGN ENGINEER Outcomes: FOIS 2 Speech Language Pathologist: RIKI Blancas Time In: 824 Time Out: 50 Total Visit Time: 25 minutes Total Treatment Time (skilled, billable minutes): 25 minutes Non-billable assistance during session: na Assisted by during session: na PPE used during patient interaction: gloves Patient location/status at end of session: bed with head of bed elevated Patient alarms at end of session: none altered Needs in reach. CHIEF DESIGN ENGINEER Evaluation and Treatment Time Speech Therapy - Individual 08102: 12 Swallowing Dysfunction Treatment 66391: 13 Upon discontinuation of Acute Care Speech Therapy Services or patient discharge from the hospital this note represents the current Speech Therapy Discharge Summary * OWEN Benavides - 08/12/2024 3:21 PM EDT Placement Plan Expected Discharge Date: 08/14/2024 Referred Level of Care: IPR Barriers: Medical Readiness & Precertification Current Referrals and Status 1. [facility]accept[facility] started precertification today. BULMARO Allen Proration Clerk * Jazzy Aguiar - 08/12/2024 10:46 AM [...] sinkside Mobility Assessment/Intervention: Supine to Sit Mobility Davison Level: Supine->Sit: moderate assist (50% patient effort) [...] positioning Transfer Assessment/Intervention: Sit to Stand Transfer Davison Level: Sit->Stand: maximum assist (25% patient effort) [...] maintaining upright posture Stand to Sit Transfer Davison Level: Stand->Sit: maximum assist (25% patient effort) Physical Assist: Stand->Sit: 2 person assist Assistive Device: Stand->Sit: gait belt, hand held assist Skilled Rationale: Verbal cues, Tactile cues, Hand placement, Positioning, Controlled descent for sitting Skilled Intervention/Details: Stand->Sit: Cues for positioning with recliner and using BUEs to help with appropriate positoining of hips in chair Bed-Chair Transfer Davison Level: Bed<->Chair: maximum assist (25% patient effort) Physical Assist: Bed<->Chair: 2 person assist Assistive Device: Bed<->Chair: gait belt Skilled Rationale: Verbal cues, Tactile cues, Hand placement, Positioning, Technique of activity Skilled Intervention/Details: Bed<->Chair: x1 from EOB to recliner on R. Pt needing increasedsupport for managing L side and sequencing steps for appropriate positioning with recliner Outcome Score(s): CURRENT -[facility] Daily Activity Inpatient Short Form Putting on/Taking Off Lower Body Clothin - Total Assistance Bathin - A Lot of Assistance Toiletin - Total Assistance Putting on/Taking Off Upper Body Clothin - A Lot of Assistance Groomin - A Lot of Assistance Eatin - Total Assistance CURRENT [facility] Activity Raw Score: 9 CURRENT -[facility] Activity Functional Limitation/Modifier: 79.59% Currently [...] speech and L hemiplegia. She presented [facility] and was seen on Telestroke, NIHSS [...] goal TF volume. Pt last assessed by CHIEF DESIGN ENGINEER 08/08 with recommendations for NPO. S/p [...] chips. Will also increase free water flushes. CHIEF DESIGN ENGINEER to see pt tomorrow. Nutrition Focused Physical Exam: Nutrition Focused Physical Exam Completed?: completed Subcutaneous Fat Loss: Orbital Region (Orbital Fat Pads): WDL Cheek Region (Buccal Fat Pads): WDL Upper Arm Region (Triceps): WDL Thoracic and Lumbar Region (Ribs, Lower Back, Midaxillary Line): WDL Muscle Wasting: Tenriism Region (Temporalis Muscle): deferred (lac over eyebrow) [...] kg (172 lb) 06/26/24 78.9 kg (174 lb)-[facility] 05/31/24 79 kg (174 lb 2.6 oz)-[facility] 11/28/23 80.6 kg (177 lb 9.6 oz)-[facility] 09/29/23 84 kg (185 lb)-[facility] meds reviewed: Scheduled: Reviewed, includes insulin, [...] Needs: Weight Used: 61 kg (IBW) EEN: 5103-4445 kcal/day (25-30 kcal/kg) EPN: 73-92 g/day (1.2-1.5 g/kg) EFN: 1830 mL/day (30 mL/kg) or per primary team Malnutrition Statement: Does the patient meet criteria for malnutrition: No *Based on [employer] and ASPEN Indicators to Diagnose Malnutrition (AAIM) criteria (2012) Tianna Murray RD, LD, [facility] Pager #[phone] * Katie Ramos, PT - 08/12/2024 10:22 [...] standing. Mobility Assessment/Intervention: Supine to Sit Mobility Davison Level: Supine->Sit: moderate assist (50% patient effort) Physical Assist: Supine->Sit: 2 person assist Bed Features/Set-up: Supine->Sit: Head of bed elevated Skilled Rationale: Verbal cues, Tactile cues, Hand placement, Technique of activity Skilled Intervention/Details: Supine->Sit: verbal/tactile cues for instruction on transfer technique and mod A x 2 for LE and trunk management. Transfer Assessment/Intervention: Sit to Stand Transfer Davison Level: Sit->Stand: maximum assist (25% patient effort) Physical Assist: Sit->Stand: 2 person assist Assistive Device: Sit->Stand: gait belt Skilled Rationale: Verbal cues, Tactile cues, Hand placement, Technique of activity Skilled Intervention/Details: Sit->Stand: x2 trials with verbal/tactile cues for instruction on transfer technique, hand placement, and blocking left knee. Bed-Chair Transfer Davison Level: Bed<->Chair: maximum assist (25% patient effort) Physical Assist: Bed<->Chair: 2 person assist Assistive Device: Bed<->Chair: gait belt Skilled Rationale: Verbal cues, Tactile cues, Hand placement, Technique of activity Skilled Intervention/Details: Bed<->Chair: x1 trial from EOB to chair to the right. Verbal/tactile cues for instruction on transfer technqiue, blocking left knee. Outcome Score(s): CURRENT [facility] Basic Mobility Inpatient Short Form Turning over in bed: 2 - A Lot of Assistance Moving from lying on back to sittin - Total Assistance Moving to and from bed to chair: 1 - Total Assistance Sitting/standing from chair: 1 - Total Assistance Walk in hospital room: 1 - Total Assistance Climbing 3-5 steps with a railin - Total Assistance CURRENT [facility] Mobility Raw Score: 7 CURRENT [facility] Mobility Functional Limitation: 92.36% Impaired in Basic [...] Physical Therapy Discharge Summary. * Radha Gr, STAMP CLASSIFIER-BRONC BUSTER - 08/11/2024 7:15 AM EDT NEUROVASCULAR STROKE SERVICE Daily Progress Note IDENTIFYING INFORMATION Lindsay Acuna MR# [id number] 08/11/2024 HISTORY OF PRESENT ILLNESS Lindsay Acuna is a 78 y.o. female with PMH significant for CAD, HTN, HLD, T2DM, Afib (on Eliquis, although patient reports she has not been taking it) who presents with L hemiplegia, slurred speech. LKW 0915 on 08/02, later found down with slurred speech and L hemiplegia. She presented to [facility] and was seen on Telestroke, NIHSS [...] 2b revascularization. INTERVAL HISTORY 08/05: Transfer to [place] MBS tomorrow 08/06: Failed MBS. Increased lopressor. [...] today 08/11 -Rate controlled on metoprolol Dysphagia: -CHIEF DESIGN ENGINEER following -NPO, DHT + TF -Failed [...] Lindsay Acuna will likely be discharged to [facility] when medically ready Radha Gr, STAMP CLASSIFIER-BRONC BUSTER 08/11/2024 10:17 AM VITAL SIGNS Temp: [97.2 [...] for specific therapeutic recommendations, please see the freight forwarder report of the speech pathologist. Examination performed [...] and neurological examinations as recorded by the WEB PUBLISHER repeated and confirmed. I have personally reviewed [...] tooth. Blood cx unremarkable. * Radha Gr, JASIEL-BRONC BUSTER - 08/10/2024 7:14 AM EDT NEUROVASCULAR STROKE SERVICE Daily Progress Note IDENTIFYING INFORMATION Lindsay Acuna MR# [id number] 08/10/2024 HISTORY OF PRESENT ILLNESS Lindsay Acuna is a 78 y.o. female with PMH significant for CAD, HTN, HLD, T2DM, Afib (on Eliquis, although patient reports she has not been taking it) who presents with L hemiplegia, slurred speech. LKW 0915 on 08/02, later found down with slurred speech and L hemiplegia. She presented to [facility] and was seen on Telestroke, NIHSS [...] 2b revascularization. INTERVAL HISTORY 08/05: Transfer to [place] MBS tomorrow 08/06: Failed MBS. Increased lopressor. [...] as above -Rate controlled on metoprolol Dysphagia: -CHIEF DESIGN ENGINEER following -NPO, DHT + TF -Failed [...] Lindsay Acuna will likely be discharged to [facility] when medically ready Radha Gr, JASIEL-BRONC BUSTER 08/10/2024 7:14 AM VITAL SIGNS Temp: [97.4 [...] for specific therapeutic recommendations, please see the freight forwarder report of the speech pathologist. Examination performed [...] 08/10/2024 3:17 AM EDT GASTROENTEROLOGY PROGRESS NOTE Lnidsay Acuna is a 78 y.o. female with [...] skin and external bumper. - If used prison, PEG should be changed every 3-6 months [...] Hepatology, and Nutrition Clinical Fellow PGY-4 Pager: [phone] For follow up questions regarding this patient 7am to 5pm, contact the IBD consults fellow or DAHLIA on [employer]. [facility]--> Internal Medicine--> Gastroenterology, Hepatology, & Nutrition--> IBD Consult Service Fel Day OR IBD Consult Service DAHLIA Day For urgent/stat calls or new consults 5pm to 7am or all day on the weekend, please page the on-callGI fellow on [employer]. [facility]--> Internal Medicine--> Gastroenterology, Hepatology, & Nutrition--> 1st Call Fel Miriam OR STAT/NEW GI Cons Wknd Day Cosigned by Niru Koch MD at 08/10/2024 2:11 PM EDT * OWEN Benavides - 08/09/2024 3:34 PM EDT Placement Plan Expected Discharge Date: Referred Level of Care: IPR Barriers: Medical Readiness and Precertification Current Referrals and Status 1. [facility]-accept[facility] will start precertification on Monday after updated therapy notes are in. For Case Management assistance for the weekend, please contact CM for assistance as needed (8:00am-4:30pm) BASH: [phone] Maria: [phone] Johan: [phone] Ross: [phone] For Social Work assistance for the weekend, please contact for assistance as needed (8:00am - 4:30pm): BASH: [phone] Maria: [phone] Johan: [phone] Ross: [phone] * Radha Gr APRN-BRONC BUSTER - 08/09/2024 8:07 AM EDT NEUROVASCULAR STROKE SERVICE Daily Progress Note IDENTIFYING INFORMATION Lindsay Acuna MR# [id number] 08/09/2024 HISTORY OF PRESENT ILLNESS Lindsay Acuna is a 78 y.o. female with PMH significant for CAD, HTN, HLD, T2DM, Afib (on Eliquis, although patient reports she has not been taking it) who presents with L hemiplegia, slurred speech. LKW 0915 on 08/02, later found down with slurred speech and L hemiplegia. She presented to [facility] and was seen on Telestroke, NIHSS [...] 2b revascularization. INTERVAL HISTORY 08/05: Transfer [place] MBS tomorrow 08/06: Failed MBS. Increased lopressor. [...] as above -Rate controlled on metoprolol Dysphagia: -CHIEF DESIGN ENGINEER following -NPO, DHT + TF -Failed [...] Lindsay Acuna will likely be discharged to [facility] when medically ready Radha Gr, JASIEL-BRONC BUSTER 08/09/2024 8:07 AM VITAL SIGNS Temp: [97.3 [...] for specific therapeutic recommendations, please see the freight forwarder report of the speech pathologist. Examination performed [...] on the below outcome measures/assessment score(s) and CHIEF DESIGN ENGINEER clinicaljudgment, discharge destination recommendation is: Inpatient Rehab Facility Acute CHIEF DESIGN ENGINEER Outcomes Tracking Communicate basic wants and [...] pressions and introduction to effortful swallow exercise. CHIEF DESIGN ENGINEER provided education regarding recommendation of NPO [...] constraints (transport arrived for pt's CT scan). CHIEF DESIGN ENGINEER will follow as able. Subjective information: Patient upright in chair, at bedside. Agreeable to CHIEF DESIGN ENGINEER session. Pain: General Pain Documentation (Adult, [...] room air Flow (L/min): [3] 3 Acute CHIEF DESIGN ENGINEER Goals Plan of Care by RIKI [...] phsyiology, risks of aspiration pneumonia). Educated regarding CHIEF DESIGN ENGINEER role in swallow rehab and future POC Plan for next session: 08/06: cog tx and dysphagia exercises CHIEF DESIGN ENGINEER Outcomes: FOIS: 1 Speech Language Pathologist: RIKI Penaloza Time In: 1310 Time Out: 1330 Total Visit Time: 20 minutes Total Treatment Time (skilled, billable minutes): 20 minutes Non-billable assistance during session: NA Assisted by during session: NA PPE used during patient interaction: gloves Patient location/status at end of session: chair Patient alarms at end of session: none altered Needs in reach. CHIEF DESIGN ENGINEER Evaluation and Treatment Time Swallowing Dysfunction Treatment 05665: 20 Upon discontinuation of Acute Care Speech [...] feedback Mobility Assessment/Intervention: Supine to Sit Mobility Davison Level: Supine->Sit: moderate assist (50% patient effort) Physical Assist: Supine->Sit: 2 person assist Bed Features/Set-up: Supine->Sit: Use of bed rail, Head of bed elevated Skilled Rationale: Sequencing, Verbal cues, Hand placement, Positioning Skilled Intervention/Details: Supine->Sit: increased time/cues Transfer Assessment/Intervention: Sit to Stand Transfer Davison Level: Sit->Stand: moderate assist (50% patient effort) Physical Assist: Sit->Stand: 2 person assist Assistive Device: Sit->Stand: gait belt, hand held assist Skilled Rationale: Positioning, Sequencing, Hand placement, Verbal cues Skilled Intervention/Details: Sit->Stand: Pt educated in sit to stand transfers x 2 attempts, one from EOB and one from chair Bed-Chair Transfer Davison Level: Bed<->Chair: maximum assist (25% patient effort) [...] Mobility Assessment/Intervention: Stairs Assessment/Intervention: Outcome Score(s): CURRENT [facility] Basic Mobility Inpatient Short Form Turning over in bed: 2 - A Lot of Assistance Moving from lying on back to sittin - A Lot of Assistance Moving to and from bed to chair: 1 - Total Assistance Sitting/standing from chair: 1 - Total Assistance Walk in hospital room: 1 - Total Assistance Climbing 3-5 steps with a railin - Total Assistance CURRENT [facility] Mobility Raw Score: 8 CURRENT [facility] Mobility Functional Limitation: 86.62% Impaired in Basic [...] positioning Mobility Assessment/Intervention: Supine to Sit Mobility Davison Level: Supine->Sit: moderate assist (50% patient effort) [...] positioning Transfer Assessment/Intervention: Sit to Stand Transfer Davison Level: Sit->Stand: moderate assist (50% patient effort) Physical Assist: Sit->Stand: 2 person assist Assistive Device: Sit->Stand: gait belt, hand held assist Skilled Rationale: Verbal cues, Tactile cues, Hand placement, Positioning, Technique of activity Skilled Intervention/Details: Sit->Stand: x1 from EOB, x1 from recliner. Cues for technique and assuming an upright posture once standing Stand to Sit Transfer Davison Level: Stand->Sit: moderate assist (50% patient effort) Physical Assist: Stand->Sit: 2 person assist Assistive Device: Stand->Sit: gait belt, hand held assist Skilled Rationale: Verbal cues, Tactile cues, Hand placement, Positioning, Controlled descent for sitting Skilled Intervention/Details: Stand->Sit: Cues for positioning with recliner and using arms to help with controlled descent into chair Bed-Chair Transfer Davison Level: Bed<->Chair: maximum assist (25% patient effort) [...] appropriately position with chair. Outcome Score(s): CURRENT [facility] Daily Activity Inpatient Short Form Putting on/Taking Off Lower Body Clothin - Total Assistance Bathin - A Lot of Assistance Toiletin - Total Assistance Putting on/Taking Off Upper Body Clothin - A Lot of Assistance Groomin - A Lot of Assistance Eatin - Total Assistance CURRENT [facility] Activity Raw Score: 9 CURRENT -[facility] Activity Functional Limitation/Modifier: 79.59% Currently [...] Progress Note IDENTIFYING INFORMATION Lindsay Acuna MR# [id number] 08/08/2024 HISTORY OF PRESENT ILLNESS Lindsay Acuna is a 78 y.o. female with PMH significant for CAD, HTN, HLD, T2DM, Afib (on Eliquis, although patient reports she has not been taking it) who presents with L hemiplegia, slurred speech. LKW 0915 on 08/02, later found down with slurred speech and L hemiplegia. She presented to [facility] and was seen on Telestroke, NIHSS [...] 2b revascularization. INTERVAL HISTORY 08/05: [place] [facility] [place]: Failed MBS. Increased lopressor. Spouse [...] as above -Rate controlled on metoprolol Dysphagia: -CHIEF DESIGN ENGINEER following -NPO, DHT + TF -Failed [...] Lindsay Acuna will likely be discharged to [facility] when medically ready Bella Cardenas, JASIEL-BRONC BUSTER 08/08/2024 2:53 PM VITAL SIGNS Temp: [97.4 [...] for specific therapeutic recommendations, please see the freight forwarder report of the speech pathologist. Examination performed [...] bed availability Current Referrals and Status 1. [facility] notified student confirming after call with Patient's daughter that [facility] choice. Facility reserved. AVS/DAVE [...] and patient's spouse are agreeable to [facility] as facility of choice, and Gisela is agreeable to [facility] as well. Updated SW student. Simin Resendez, RN, BSN Clinical Student Finance Advisor [facility] * Chela Hannon - 08/07/2024 2:08 PM EDT Placement Plan CRM DYNAMICS DEVELOPER met with Patient and spouse at bedside to discuss facility choice. Spouse mentioned that [facility] was first choice, though CRM DYNAMICS DEVELOPER provided update that [facility] could not accept after reviewing. CRM DYNAMICS DEVELOPER reviewed other IPR options with Spouse, who reports that [facility] choice. Spouse discussed with daughter Gisela via phone, who is in agreement but requestsa return call. CRM DYNAMICS DEVELOPER notified CCM. Chela Snyder Social Work Student Available by Secure Chat Cosigned by OWEN Keller at 08/07/2024 2:11 PM EDT * Bella Cardenas, JASIEL-BRONC BUSTER - 08/07/2024 6:54 AM EDT NEUROVASCULAR STROKE SERVICE Daily Progress Note IDENTIFYING INFORMATION Lindsay Acuna MR# [id number] 08/07/2024 HISTORY OF PRESENT ILLNESS Lindsay Acuna is a 78 y.o. female with PMH significant for CAD, HTN, HLD, T2DM, Afib (on Eliquis, although patient reports she has not been taking it) who presents with L hemiplegia, slurred speech. LKW 0915 on 08/02, later found down with slurred speech and L hemiplegia. She presented to [facility] and was seen on Telestroke, NIHSS [...] 2b revascularization. INTERVAL HISTORY 08/05: [place] [facility] [place]: Failed MBS. Increased lopressor. Spouse [...] as above -Rate controlled on metoprolol Dysphagia: -CHIEF DESIGN ENGINEER following -NPO, DHT + TF -Failed [...] Lindsay Acuna will likely be discharged to [facility] when medically ready Bella Cardenas APRN-BRONC BUSTER 08/07/2024 3:06 PM VITAL SIGNS Temp: [97.5 [...] for specific therapeutic recommendations, please see the freight forwarder report of the speech pathologist. Examination performed [...] authorization, transportation Current Referrals and Status 1. [facility]: Available 2. [facility]: Available 3. [facility]: Available (pending PEG or diet and their MD requested aspirin started before discharge) 4. [facility]: Available 5. [facility]: Unavailable, out of network 6. [facility]: Unavailable, Incorrect Level of Care 7. [facility] IPR: sent Met with patient and patient's spouse, Ike, at bedside to provide choice list. Ike called patient's daughter, Gisela Acuna, to discuss as well. Gisela requested information on private pay at [facility], messaged [facility] liaison and then provided information to Gisela. Gisela requested CM sendreferral to [facility] IPR. Plan for family to review choice list FREDRICK camargo/SW team will update patient and family regarding [facility] IPR response tomorrow morning. This CM's contact information provided to Ike Acuna and Gisela Acuna for any further questions. Simin Resendez RN, BSN Clinical Student Finance Advisor [facility] * Florinda Velasquze, PT - 08/06/2024 2:30 PM EDT Acute [...] minutes Mobility Assessment/Intervention: Supine to Sit Mobility Davison Level: Supine->Sit: moderate assist (50% patient effort) Bed Features/Set-up: Supine->Sit: Head of bed elevated, Use of bed rail Skilled Rationale: Positioning, Sequencing Skilled Intervention/Details: Supine->Sit: step by step cues for sequencingg Transfer Assessment/Intervention: Sit to Stand Transfer Davison Level: Sit->Stand: moderate assist (50% patient effort) [...] left UE during transitional movements Bed-Chair Transfer Davison Level: Bed<->Chair: moderate assist (50% patient effort) Physical Assist: Bed<->Chair: 2 person assist Assistive Device: Bed<->Chair: gait belt, hand held assist Skilled Rationale: Positioning, Hand placement, Verbal cues, Sequencing Skilled Intervention/Details: Bed<->Chair: Pt educated in bed to BSC commode transfer x 2-3 steps with cues for LE sequencing, left LE weakness requiring intermittent blocking Gait/Functional Mobility Assessment/Intervention: Gait Assessment Davison Level: Gait: (mod/max) Physical Assist: Gait: 2 [...] prevent buckling. Stairs Assessment/Intervention: Outcome Score(s): CURRENT [facility] Basic Mobility Inpatient Short Form Turning over [...] with a railin - Total Assistance CURRENT [facility] Mobility Raw Score: 9 CURRENT [facility] Mobility Functional Limitation: 81.38% Impaired in Basic [...] Physical Therapy Discharge Summary. * Nimesh Balderrama [facility] - 08/06/2024 1:42 PM EDT Department of Pharmacy Admission Medication Reconciliation Note Patient: Lindsay Acuna Room/Bed: 1043/A I have reviewed the patient's home medication list with the following sources Dispense Report. The home medication list status is: complete. All changes to the home medication list have been updated in [facility]. Updated PREFLIGHT MECHANIC Med List: Prior to Admission Medications Prescriptions [...] with any further questions. Name: Nimesh Balderrama [facility] Phone #: [phone] Date/Time: 08/06/2024 1:42 PM Time Spent: 10 [...] noted Mobility Assessment/Intervention: Supine to Sit Mobility Davison Level: Supine->Sit: moderate assist (50% patient effort) [...] completion. Transfer Assessment/Intervention: Sit to Stand Transfer Davison Level: Sit->Stand: (x 1 trial from EOB [...] and kyphotic posture. Stand to Sit Transfer Davison Level: Stand->Sit: moderate assist (50% patient effort) Assistive Device: Stand->Sit: gait belt (Arm and arm assist.) Skilled Rationale: Cues for increased safety, Initiation and execution of task, Technique of activity, Controlled descent for sitting, Ischial assist, Arm in arm, Tactile cues, Verbal cues, Hand placement, Sequencing, Positioning Bed-Chair Transfer Davison Level: Bed<->Chair: moderate assist (50% patient effort) [...] with left LE). Functional Mobility: Functional Mobility Davison Level: Functional Mobility/Gait: (Moderate-max assistance) Physical Assist: [...] overall decreased insight/awareness intodeficits. Outcome Score(s): CURRENT [facility] Daily Activity Inpatient Short Form Putting on/Taking Off Lower Body Clothin - Total Assistance Bathin - A Lot of Assistance Toiletin - Total Assistance Putting on/Taking Off Upper Body Clothin - A Lot of Assistance Groomin - A Lot of Assistance Eatin - Total Assistance (Dobhoff.) CURRENT [facility] Activity Raw Score: 9 CURRENT [facility] Activity Functional Limitation/Modifier: 79.59% Currently Impaired in [...] Occupational Therapy Discharge Summary. * Taran Traore, JASIEL-BRONC BUSTER - 08/06/2024 7:49 AM EDT NEUROVASCULAR STROKE SERVICE Daily Progress Note IDENTIFYING INFORMATION Lindsay Acuna MR# [id number] 08/06/2024 HISTORY OF PRESENT ILLNESS Lindsay Acuna is a 78 y.o. female with PMH significant for CAD, HTN, HLD, T2DM, Afib (on Eliquis, although patient reports she has not been taking it) who presents with L hemiplegia, slurred speech. LKW 0915 on 08/02, later found down with slurred speech and L hemiplegia. [facility] and was seen on Telestroke, NIHSS [...] 2b revascularization. INTERVAL HISTORY 08/05: Transfer to [place]. MBS tomorrow 08/06: Failed MBS. Increased lopressor. [...] as above -Rate controlled on metoprolol Dysphagia: -CHIEF DESIGN ENGINEER following -NPO, DHT + TF -Failed [...] Lindsay Acuna will likely be discharged to [facility] when medically ready Taran Traore APRN-BRONC BUSTER 08/06/2024 1:43 PM VITAL SIGNS Temp: [96.5 [...] for specific therapeutic recommendations, please see the freight forwarder report of the speech pathologist. Examination performed [...] Progress Note IDENTIFYING INFORMATION Lindsay Acuna MR# [id number] 08/05/2024 HISTORY OF PRESENT ILLNESS Lindsay Acuna is a 78 y.o. female with PMH significant for CAD, HTN, HLD, T2DM, Afib (on Eliquis, although patient reports she has not been taking it) who presents with L hemiplegia, slurred speech. LKW 0915 on 08/02, later found down with slurred speech and L hemiplegia. She presented to [facility] and was seen on Telestroke, NIHSS [...] 2b revascularization. INTERVAL HISTORY 08/05: Transfer to [facility] tomorrow PHYSICAL EXAM Gen: awake, alert, [...] as above -Rate controlled on metoprolol Dysphagia: -CHIEF DESIGN ENGINEER following -NPO, DHT + TF -MBS tomorrow HLD, POA: -Atorvastatin 40 mg daily CAD, POA: -Hold ASA for 7 days due to ICH T2DM, POA: -SSI regular + accuchecks CKD Stage 3A, POA: Baseline Cr 1.3 -Avoid nephrotoxins, monitor Hypothyroidism, POA: -Continue home levothyroxine 75 mcg daily Disposition: Lindsay Acuna will likely be discharged to [facility] when medically ready Taran Traore APRN-BRONC BUSTER 08/05/2024 2:19 PM VITAL SIGNS Temp: [97.8 [...] on the below outcome measures/assessment score(s), and CHIEF DESIGN ENGINEER clinical judgment, discharge destination recommendation is: [...] Impaired cognitive skills limiting saf ety/insight Acute CHIEF DESIGN ENGINEER Outcomes Tracking Communicate basic wants and [...] oropharyngeal swallow function to most appropriately guide CHIEF DESIGN ENGINEER plan of care. Of note, patient [...] Currentdeficits impact her safety and independence. Ongoing CHIEF DESIGN ENGINEER services are warranted. Subjective information: Awake, [...] O2 Device: room air (08/05 0830) Acute CHIEF DESIGN ENGINEER Goals Plan of Care by Queta Gardner, CHIEF DESIGN ENGINEER at 08/05/2024 11:49 AM Version 1 [...] oropharyngeal swallow function to most appropriately guide CHIEF DESIGN ENGINEER plan of care Outcome: Ongoing Problem: CHIEF DESIGN ENGINEER - Cognition Goal: Orientation Log - [...] better assess deficits and most appropriately guide CHIEF DESIGN ENGINEER plan of care Outcome: Met Tx: [...] for next session: 08/05: Good candidate; FERNANDO CHIEF DESIGN ENGINEER Outcomes: CHIEF DESIGN ENGINEER Outcomes / Standardized Measures Score The [...] wrist restraints, RN aware Needs in reach. CHIEF DESIGN ENGINEER Evaluation and Treatment Time Speech Therapy - Individual 29605: 8 Swallowing Dysfunction Treatment 16367: 9 Upon discontinuation of Acute Care Speech Therapy Services or patient discharge from the hospital this note represents the current Speech Therapy Discharge Summary * Chela Hannon - 08/05/2024 10:37 AM EDT Placement Plan Expected Discharge Date: TBD Referred Level of Care: IPR Barriers: medical stability, bed availability Current Referrals and Status 1. [facility]- sent; denied (Patient is OON) 2. [facility]- sent 3. [facility]- sent 4. [facility]- sent 5. [facility]- sent 6. [facility] CRM DYNAMICS DEVELOPER met with Patient and Spouse at bedside to discuss discharge planning. Patient and spouse were agreeable to SW visit. CRM DYNAMICS DEVELOPER discussed therapy recommendations with Spouse for Patient to go to [facility] at discharge. Spouse is agreeable to a referral being sent to [facility]. Referral sent. Spouse requested to speak to SW about assessing Patient for dementia. CRM DYNAMICS DEVELOPER and bedside RN encouragedSpouse to discuss with Patient's outpatient provider. Chela Snyder, Social Work Student Available by Secure Chat Cosigned by OWEN Keller at 08/05/2024 11:22 AM EDT * Savana Leung, RD - 08/05/2024 10:10 AM EDT NUTRITION ASSESSMENT Nutrition Recommendations and Plan of Care: 1. Diet: NPO. Advancement per team/CHIEF DESIGN ENGINEER recommendation 2. Ordered TF: Glucerna 1.5 [...] time. Per team, pt failed bedside swallow. CHIEF DESIGN ENGINEER consulted for swallow eval. Past History [...] kg (172 lb) 06/26/24 78.9 kg (174 lb)-[facility] 05/31/24 79 kg (174 lb 2.6 oz)-[facility] 11/28/23 80.6 kg (177 lb 9.6 oz)-[facility] 09/29/23 84 kg (185 lb)-[facility] Pt without significant weight change PREFLIGHT MECHANIC. Tmax: 97.8*F BP: (!) 173/94 Pulse (Heart [...] proximal second portion of the duodenum. BM: PREFLIGHT MECHANIC Urine: 725mL Skin: Raghu Score: 13 Active Wounds: Wound Sheath Site 08/02/24 1500 Right Radial (3) Wound Abrasion 08/02/24 2109 Left;Upper Face (3) Edema- None Estimated Nutrition Needs: Based on IBW (61.4kg) Estimated Kcals Needs: 7539-6017 kcals (25-30kcals/kg) Estimated Pro Needs: 74-92g Pro (1.2-1.5g/kg) Estimated Fluid Needs: Per MD Nutrition Focused Physical Exam Completed?: completed Subcutaneous Fat Loss: Orbital Region (Orbital Fat Pads): WDL Cheek Region (Buccal Fat Pads): WDL Upper Arm Region (Triceps): WDL Thoracic and Lumbar Region (Ribs, Lower Back, Midaxillary Line): WDL Muscle Wasting: Tenriism Region (Temporalis Muscle): deferred (lac over eyebrow) [...] (2012) ELVIRA Ho, RD, LD, CNSC Pager: [phone] * Rashad Rg MD - 08/05/2024 9:42 AM EDT 78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 * Shanna Russ, JASIEL-BRONC BUSTER - 08/05/2024 7:20 AM EDT NEUROCRITICAL CARE [...] Visual richards intact to confrontation. PERRL. 3mm pumper helper III, IV and : EOMI. No nystagmus. [...] aggressive pulm edema, OOB as toleratd - [id number], encourage pulmonary toileting Cards: Essential HTN HLD [...] TUBE FEEDING with meds (per DHT) - Cougar Swallow Screening Result: failed=NPO Bowel regimen: - Last Bowel Movement: (prior to admission) - Senna 17.2 mg Q12H, miralax BID, suppository PRN Stress ulcer prophylaxis: - none Dysphagia - DHT placed - CHIEF DESIGN ENGINEER following; NPO continue following, on TF [...] not indicated DVT: subcutaneous heparin [x] Lines [place]yl: n/a Marina: remove Rectal tube: n/a Enteral [...] the assigned neurocritical care provider (resident, fellow, WEB PUBLISHER, orPA) or page/call the corresponding number below NCC1 (Beds [phone]): [place] # [phone], pager #[phone] NCC2 (Beds 2464-2481, 12 Nando, and overflow): [place] #: [phone], pager #[phone] * Florinda Velasquez, PT - 08/04/2024 1:36 [...] noted Mobility Assessment: Supine to Sit Mobility Davison Level: Supine->Sit: moderate assist (50% patient effort) [...] EOB Transfer Assessment: Sit to Stand Transfer Davison Level: Sit->Stand: moderate assist (50% patient effort) Physical Assist: Sit->Stand: 2 person assist Assistive Device: Sit->Stand: gait belt, hand held assist Skilled Rationale: Positioning, Sequencing, Hand placement, Verbal cues Skilled Intervention/Details: Sit->Stand: x 1 from EOB Bed-Chair Transfer Davison Level: Bed<->Chair: moderate assist (50% patient effort) Physical Assist: Bed<->Chair: 2 person assist Assistive Device: Bed<->Chair: gait belt, hand held assist Skilled Rationale: Positioning, Sequencing, Hand placement, Verbal cues Skilled Intervention/Details: Bed<->Chair: x 2-3 steps from bed to chair Gait/Functional Mobility: Stairs: Outcome Score(s): CURRENT [facility] Basic Mobility Inpatient Short Form Turning over [...] with a railin - Total Assistance CURRENT [facility] Mobility Raw Score: 10 CURRENT [facility] Mobility Functional Limitation: 76.75% Impaired [...] Edema: Mobility Assessment: Supine to Sit Mobility Davison Level: Supine->Sit: moderate assist (50% patient effort) Physical Assist: Supine->Sit: 2 person assist Bed Features/Set-up: Supine->Sit: Head of bed elevated Skilled Rationale: Positioning, Hand placement, Verbal cues, Technique of activity Transfer Assessment: Sit to Stand Transfer Davison Level: Sit->Stand: moderate assist (50% patient effort) Physical Assist: Sit->Stand: 2 person assist Assistive Device: Sit->Stand: gait belt, hand held assist Skilled Rationale: Positioning, Hand placement, Verbal cues, Technique of activity Stand to Sit Transfer Davison Level: Stand->Sit: moderate assist (50% patient effort) Physical Assist: Stand->Sit: 2 person assist Assistive Device: Stand->Sit: hand held assist Skilled Rationale: Positioning, Hand placement, Verbal cues, Arm in arm, Controlled descent for sitting Bed-Chair Transfer Davison Level: Bed<->Chair: moderate assist (50% patient effort) [...] assessment and plan as documented by the WEB PUBLISHER with my changes/additions added. Patient is a [...] ICH x 7 days - Statin - PT/OT/CHIEF DESIGN ENGINEER evaluation Pulmonary: No acute issues, appears [...] and other supportive care as per the WEB PUBLISHER note from the same day This patient [...] services to the [facility] and other care providers. Management of the above was performed. My time managing this critically ill patient included review of interval history, laboratories, radiology and cons ultation reports; performing a physical examination; discussing the patient with the multi-disciplinary team and managing life sustaining therapies to prevent imminent clinical deterioration. Richard Mejia MD Neurocritical Care Attending * Balbir Mccoy, STAMP CLASSIFIER-BRONC BUSTER - 08/04/2024 7:44 AM EDT NEUROCRITICAL CARE [...] Visual richards intact to confrontation. PERRL. 3mm pumper helper III, IV and : EOMI. No nystagmus. [...] SpO2 >92%; wean FiO2 as tolerated - [id number], encourage pulmonary toileting Cards: Essential HTN HLD [...] NPO AND TUBE FEEDING with meds (per [facility]) - Cougar Swallow Screening Result: failed=NPO Bowel regimen: - Last Bowel Movement: (prior to admission) - Senna 17.2 mg Q12H, miralax at bedtime Stress ulcer prophylaxis: - none Dysphagia - DHT placed - CHIEF DESIGN ENGINEER following - Tube feed: Vital AF [...] not indicated DVT: subcutaneous heparin [x] Lines [place]: n/a Marina: inserted 08/02, (indication: strict I&O [...] the assigned neurocritical care provider (resident, fellow, WEB PUBLISHER, orPA) or page/call the corresponding number below NCC1 (Beds 0768-9409): [place] # [phone], pager #[phone] NCC2 (Beds 0561-4717, 12 Nando, and overflow): [place] #: [phone], pager #[phone] * Rafael Garcia MD - 08/03/2024 2:16 PM EDT NEUROVASCULAR Consult Daily Progress Note IDENTIFYING INFORMATION Lindsay Acuna MR# [id number] 08/03/2024 HISTORY OF PRESENT ILLNESS Lindsay Acuna is a 78 y.o. female with PMH significant for CAD, HTN, HLD, T2DM, Afib (on Eliquis, although patient reports she has not been taking it) who presents with L hemiplegia, slurred speech. She was last seen normal by her at 0915, later found down with slurred speech and L hemiplegia. [facility] and was seen on Telestroke, NIHSS [...] speech and L hemiplegia. She presented to [facility] and was seen on Telestroke, NIHSS [...] workup. Delbert Kasper MD * Nohelia Oconnell, CHIEF DESIGN ENGINEER - 08/03/2024 12:09 PM EDT Acute Care CHIEF DESIGN ENGINEER Speech/Language/Cognitive Evaluation Best mode of Communication: spoken language (regular speech) Discharge Recommendations: Based on the below outcome measures/assessment score(s) and CHIEF DESIGN ENGINEER clinicaljudgment, discharge destination recommendation is: (Skilled speech therapy services at next level of care) Barriers to discharge home: Cognitive impairments that impact safety and independence Supporting factors for discharge setting: Impaired swallow function limiting nutritional status andsafety with oral intake Acute CHIEF DESIGN ENGINEER Outcomes Tracking Communicate basic wants and [...] speech and L hemiplegia. She presented to [facility] and was seen on Telestroke,NIHSS 12. [...] 0 Asthenia (A): 0 Strain (S): 0 CHIEF DESIGN ENGINEER Outcomes / Standardized Measures Score The [...] unable to respond. Total Score: 12 Acute CHIEF DESIGN ENGINEER Goals Plan of Care by Nohelia Oconnell CHIEF DESIGN ENGINEER at 08/03/2024 11:25 AM Version 1 of 1 Problem: Dysphagia Goal: Ongoing Assessment - Patient will participate in ongoing assessment by accepting various PO consistency trials with appropriate participation/oral acceptance and no significant respiratory complications to determine readiness for diet advancement Outcome: Ongoing Problem: CHIEF DESIGN ENGINEER - Cognition Goal: Orientation Log - [...] better assess deficits and most appropriately guide CHIEF DESIGN ENGINEER plan of care Outcome: Ongoing Speech [...] of session: bed alarm Needs in reach. CHIEF DESIGN ENGINEER Evaluation and Treatment Time Speech Eval - Sound Production W/Lang Comp and Exp 95149: 11 Swallowing Eval 80860: 10 Upon discontinuation of Acute Care Speech [...] on the below outcome measures/assessment score(s) and CHIEF DESIGN ENGINEER clinicaljudgment, discharge destination recommendation is: Deferred to PT/OT recomendations related to mobility Current therapy frequency recommendation in acute care: Swallow Therapy Frequency: 5 times a week Acute CHIEF DESIGN ENGINEER Outcomes Tracking Communicate basic wants and [...] speech and L hemiplegia. She presented to [facility] and was seen on Telestroke,NIHSS 12. 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 Prior CHIEF DESIGN ENGINEER history: No prior speech history per [...] and Liquids Trialed Modality Amount Ice Teaspoon, CHIEF DESIGN ENGINEER-fed 3x Thin Teaspoon 3x Oral Phase [...] Patient presents with presumed pharyngeal phase impairments. Cougar Swallow Screen: (administered by: ZOE) Cougar Swallow Screening Screening Exclusion Criteria: none, continue [...] Ok for ice chips with RN supervision. CHIEF DESIGN ENGINEER will continue to follow for ongoing dysphagia management. Patient Education/Instruction Learners: Patient Education provided: Dysphagia recommendation risk: benefit analysis, Role of this discipline Teaching method: Verbal Education/Instruction Learner response: Needs review Learning preferences: Auditory Learning considerations: Cognition Plan for next session: 08/03: Good Prognosis, ongoing dysphagia management to determine readiness for diet advancement vs instrumental. Acute CHIEF DESIGN ENGINEER Goals Plan of Care by RIKI Hayes at 08/03/2024 11:25 AM Version 1 of 1 Problem: Dysphagia Goal: Ongoing Assessment - Patient will participate in ongoing assessment by accepting various PO consistency trials with appropriate participation/oral acceptance and no significant respiratory complications to determine readiness for diet advancement Outcome: Ongoing Problem: CHIEF DESIGN ENGINEER - Cognition Goal: Orientation Log - [...] better assess deficits and most appropriately guide CHIEF DESIGN ENGINEER plan of care Outcome: Ongoing Speech Language Pathologist: RIKI Hayes, BCS-S Board Certified Specialist in Swallowing and Swallowing Disorders Available via [employer] Chat Time In: 1130 Time Out: 1151 Total Visit Time: 21 minutes Total Treatment Time (skilled, billable minutes): 21 minutes Non-billable assistance during session: none Assisted by during session: Patient's PPE used during patient interaction: gloves Patient location/status at end of session: bed with head of bed elevated Patient alarms at end of session: bed alarm Needs in reach. CHIEF DESIGN ENGINEER Evaluation and Treatment Time Speech Eval - Sound Production W/Lang Comp and Exp 94445: 11 Swallowing Eval 87012: 10 Upon discontinuation of Acute Care Speech Therapy Services or patient discharge from the hospital this note represents the current Speech Therapy Discharge Summary * Richard Mejia MD - 08/03/2024 10:30 AM EDT I have independently seen and examined the patient on 08/03/24. I agree with the history, examination, assessment and plan as documented by the WEB PUBLISHER with my changes/additions added. Patient is a [...] the setting of ICH - Statin - PT/OT/CHIEF DESIGN ENGINEER evaluation Pulmonary: No acute issues, appears [...] and other supportive care as per the WEB PUBLISHER note from the same day This patient [...] services to the [facility] today [facility], [facility] and other care providers. Management [...] with assistance from spouse Care Management Plan CRM DYNAMICS DEVELOPER met with Patient and Spouse at bedside to complete Initial Assessment. They were agreeable to SW visit. Patient was lethargic though able to answer some short questions. Patient consented to Spouse assisting with assessment. Spouse/Patient report that Patient has never completed a HCPOA. They expressed interest, and CRM DYNAMICS DEVELOPER will follow to complete document when Patient is more alert and oriented. Spouse reports himself and Patient live in a ranch-style home with strong supports from their community, including 2 neighbors that have assisted at this time. He noted that himself and Patient recently returned from a visit to [facility] for their anniversary. Spouse reports that their 2 children will be visiting soon. CRM DYNAMICS DEVELOPER explained SW role and offered resources. Spouse [...] Name and Contact information: Ike Acuna P: [phone] Adult Child(jj), List All Adult Children: Yes Name and Contact information: Donnell Acuna P: [phone]; Nathen Acuna P: [phone] Would you like to add additional adult [...] for Advance Care Planning? : Patient Agreeable (CRM DYNAMICS DEVELOPER to follow for HCPOA completion when Patient [...] Anticoagulation?: (unspecified at this time) [facility] [address] [place] [phone] [phone] [address] Living Environment and Support System Is the patient from a facility or snf?: No Living Environment: House ("1 bedroom ranch") Patient Caregiving Responsibilities: Self Patient-identified caregiver/support network: Family, Friends, Neighbors, Sikh Who does the patient identify as a teachable caregiver(s)?: Spouse or Partner Services Does the patient use a home health or hospice agency?: No Current with dialysis?: No Does the patient use any community programs or services?: No Does patient use DME? : straight canmelanie rollator (collapsible cane) DME provider name and [...] themselves at home? : Unable to assess Fruit I Farmworker Does the patient or patient account representative express financial concerns? : No Chela Snyder Social Work Student Available by Secure Chat Cosigned by OWEN Keller at 08/03/2024 11:20 AM EDT * Balbir Mccoy, STAMP CLASSIFIER-BRONC BUSTER - 08/03/2024 7:40 AM EDT NEUROCRITICAL CARE [...] Visual richards intact to confrontation. PERRL. 3mm pumper helper III, IV and : EOMI. No nystagmus. [...] SpO2 >92%; wean FiO2 as tolerated - [id number], encourage pulmonary toileting Cards: Essential HTN HLD [...] - Bowel regimen: - Last Bowel Movement: (PREFLIGHT MECHANIC) - Senna, miralax Stress ulcer prophylaxis: - none Dysphagia - DHT placed - CHIEF DESIGN ENGINEER following - Tube feed: Vital AF with goal rate 70 mL/h Endo: DM Type 2 Hypothyroid DM - Goal blood glucose 140-180 - home regimen: Glimepiride 2 mg daily, metformin 1000 mg daily - current regimen: Insulin high SSI regular Q6H - A1c: 7.8 Recent Labs 08/02/24 18408/02/24232408/03/24 0002 GLUCOSE 210* 161 151 HGBA1C 7.8* [...] the assigned neurocritical care provider (resident, fellow, WEB PUBLISHER, orPA) or page/call the corresponding number below NCC1 (Beds 3602-6261): [place] # [phone], pager #[phone] NCC2 (Beds 7356-6334, 12 [address], and overflow): [place] #: [phone], pager #[phone] * Nando Caceres MD - 08/03/2024 6:00 [...] nccu Neurosurgery signing off Please page NS2 ([email or web address]) with questions Complexity. Hypocalcemia - Continue to monitor and replete. Any conditions listed below are present on admission unless otherwise specified. . Cosigned by Prema Ramos MD at 08/03/2024 6:37 PM EDT * Andreas Ga RP - 08/02/2024 10:57 PM EDT Department of [...] any questions, Name: Andreas Ga RPH Phone: [phone] Date/Time: 08/02/2024 10:57 PM * Richard Mejia MD - 08/02/2024 6:01 PM EDT I have independently seen and examined the patient on 08/02/24. I agree with the history, examination, assessment and plan as documented by the WEB PUBLISHER with my changes/additions added. Patient is a [...] to determine stroke burden - Statin - PT/OT/CHIEF DESIGN ENGINEER evaluation Pulmonary: No acute issues, appears [...] stage 3a - Maintain euvolemia GI/Nutrition: - CHIEF DESIGN ENGINEER evaluation - Bowel regimen to prevent [...] and other supportive care as per the WEB PUBLISHER note from the same day This patient [...] Neurocritical Care Attending documented in this encounterU [facility] Consult note* Niru Koch MD - [...] today. Consent obtained by at bedside. - CHIEF DESIGN ENGINEER eval: none - RD eval: none [...] dependence ASSESSMENT/RECOMMENDATIONS: - primary team feels that termination clerk enteric nutrition is warranted in s/o CVA. Patient is appropriate for endoscopic PEG placement. Consent obtained from at bedside. - we will tentatively plan for EGD for PEG placement 08/09 as add on case. See pre procedure recommendations below. For PEG: - Ancef ordered (1 gm if patient is <80 kg; 2 gm if patient is >80 kg) as "distribution field engineer to the procedure"). - Please make [...] Hepatology, and Nutrition Clinical Fellow PGY-4 Pager: [phone] For urgent/stat calls 5pm to 7am or all day on the weekend, please page the on- call GI fellow on WebExchange. IM Consult Serv [facility] --> [facility] Main STAT/NEW GI consults For follow up questions regarding this patient, contact the IBD consults fellow or DAHLIA on [email or web address]. IM Consult Serv [facility] --> [facility] [...] and medical decisions as outlined. Need for prison non-oral enteric nutrition per primary team. We will facilitate this with planned PEG tube placement. Before placement, non-GI management of TF should be established to avoid delays. David Woods M.D. 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 Prema Ramos M.D. Welcome Wagon Hostess Department of Neurosurgery [facility] * Taran Zamudio León, STAMP CLASSIFIER-BRONC BUSTER - 08/02/2024 2:44 PM EDT Neurovascular Evaluation [...] speech and L hemiplegia. [facility] and was seen on Telestroke, NIHSS [...] solution Intravenous Continuous PRN Bebo Barboza APRN- WIRELESS MANAGER New Bag at 08/02/24 1507 Scheduled Meds: [...] protrudes midline Motor: L hemiplegia Reflexes: Coordination: Jntaoi-qd-umvr intact on the R, unable to test [...] telemetry -PT, OT, Speech and social work msw consults Other problems: Complexity. Any conditions listed [...] speech and L hemiplegia. She presented to [facility] and was seen on Telestroke, NIHSS [...] Delbert Kasper MD documented in this encounterOS[facility] Procedure note* Tanja Hunter, CHIEF DESIGN ENGINEER - 08/06/2024 9:32 AM EDTAssociated Order(s): SPEECH [...] the below outcome measures/assessment score(s), MBS, and CHIEF DESIGN ENGINEER clinical judgment, discharge destination recommendation is: IP Rehab Facility. Patient demonstrates good candidacy for discharge to: IRF. Additional supporting factors include: Impaired swallow functionlimiting nutritional status and safety with oral intake. Acute CHIEF DESIGN ENGINEER Outcomes Tracking Communicate basic wants and [...] speech and L hemiplegia. She presented to [facility] and was seen on Telestroke, NIHSS [...] Thin Barium: teaspoon x2, straw x2 Varibar Hornitos Barium: straw x1 Varibar Thin Honey Barium: [...] recommend NPO and nonoral meds. Ongoing skilled CHIEF DESIGN ENGINEER services indicated to address deficits and [...] Therapeutic Interventions Met: yes, treatment indicated Acute CHIEF DESIGN ENGINEER Goals Plan of Care by Tanja Hunter, CHIEF DESIGN ENGINEER at 08/06/2024 9:33 AM Version 1 of 1 Problem: Dysphagia Goal: MBS - Patient will participate in Modified Barium Swallow (MBS) Study to objectively assess oropharyngeal swallow function to most appropriately guide CHIEF DESIGN ENGINEER plan of care Outcome: Met Goal: [...] Treatment Time (skilled, billable minutes): 20 minutes CHIEF DESIGN ENGINEER Evaluation and Treatment Time MBS/Motion Fluoroscopic Swallowing Eval 15309: 20 Speech Language Pathologist: RIKI Gonzales Time [...] end of session: none altered (RN present) CHIEF DESIGN ENGINEER Evaluation and Treatment Time MBS/Motion Fluoroscopic Swallowing Eval 03274: 20 Upon discontinuation of Acute Care Speech Therapy Services or patient discharge from the hospital this note represents the current Speech Therapy Discharge Summary documented in this encounterOSU [facility] Hospital Discharge instructions* Discharge Instructions* Jhoana Casarez APRN-BRONC BUSTER - 08/06/2024 8:38 AM EDT Please take [...] you at all times. Stroke Education: visit [email or web address] What are the most common symptoms of [...] all ordered medications [x] Avoid non-prescription or lulv-vig-ajgyzdu medication not cleared by your physician [x] [...] may call the neurovascular doctors office at [phone], if you have questions Mon-Fri between 8:30 am and 4:30 pm. - For off hours or the weekend you may call the office or the hospital compo conveyor operator at and ask for the stroke resident distribution field engineer to be paged. - If you have any other questions or needs, please call Aniyah DOSS, RN, Stroke Nurse Navigator at [phone] Mon-Fri between 7:00am and 3:00pm. - Additional assistance may be found by reaching out to our Case Management Office at [phone]. *In the event of an Emergency: If you have a physical or psychiatric emergency call 911 or go to your local emergency department. You should also call your outpatient provider's emergency number. Other reference numbers: [facility] Int[facility] at [phone]; [facility] at 104-842-4590; or Suicide Prevention Hotline at 720-016-7107. *Helpful phone numbers: Free Crisis Hotline: 2-034-877-TALK ( ) Suicide Hotline: 943.451.9063 Seniors Suicide Hotline: 580.778.8389 [facility] Youth: 159.966.3541 Mental Health of [place]: 125.649.8561 (free counseling) [employer] Access Hotline: 398-627-ZJZL (480-791-8407) 24-hour crisis text hotline: Text the word "4hope" to 976-349 for crisis support. Texting this number is [...] Medicaid Applications over the phone. Please call 9-907-596[facility] (4644) and apply over the phone or apply online at www.benefits.[place].gov. Monday-Monday 8am-12pm noon. Medication Assistance Programs [employer] members can buy 100+ common prescriptions for FREE, $3 or $6. Annual membership is $36 for individuals and $72 for families (up to 6 people, including pets). Sign up online or enroll at your nearest pharmacy! [employer], web site can provide a significant number of coupons for medications at a much lower raymundo. [place] Department of Aging The Department of Aging administers programs and services to meet the needs of older [place]. Services and resources offered per [facility] may include transportation, housekeeping, meals and nutrition, personal care, case management, safety monitoring, home medical equipment, legal services, financial economist, health and wellness, education, caregiver support, respite care, etc. Call to be connected to the [facility] agency on aging serving your community or visit aging.[place].gov/find-services. Request a consultation with a community resource expert at ltssi.age.[place].gov/ [facility] Stroke Support The [facility] Stroke Support Group is for stroke survivors, friends, and family members. Meets on the Monday of each month from 6:30pm-7:30pm at [facility] ([address]; [place] [address]). Contact Chela Nolan, at [phone] or [email or web address]. If you are outside of the [place] area, contact The [place] Stroke [employer] at www.stroke.org or 4-393-5-STROKE or for support groups in your area. You may also refer to the Your Care after a Stroke education booklet at go.[email or web address].[facility]/[email or web address] for additional resources. * Medications* PATRIZIA Miner - 08/06/2024 8:38 AM EDT Know your medicines Make sure you know why you are taking each medicine. Make a master list of all your medicines. Write down the medicine names and doctors' names. Includedoses and side effects too. And write down why you take each medicine. Include all prescription jmhirwe-lwp-fcbqzzj medicines, vitamins, and supplements. Keep this list [...] plan your refills so that you can turkey picker all your medicines at the same [...] changed every 6 months. [facility] History and physical note* Balbir Hwang Nadine, STAMP CLASSIFIER-BRONC BUSTER - 08/02/2024 6:00 PM EDT NEUROCRITICAL CARE [...] Visual richards intact to confrontation. PERRL. 3mm pumper helper III, IV and : EOMI. No nystagmus. [...] SpO2 >92%; wean FiO2 as tolerated - [id number], encourage pulmonary toileting Cards: Essential HTN HLD [...] prophylaxis - rationale: post thrombectomy [x] Lines [place]: n/a [place]: n/a Rectal tube: n/a Enteral [...] the assigned neurocritical care provider (resident, fellow, WEB PUBLISHER, orPA) or page/call the corresponding number below NCC1 (Beds 0671-7801): [place] # [phone], pager #[phone] NCC2 (Beds 6658-1087, 12 [address]ando, and overflow): [place] #: [phone], pager #[phone] Cosigned by Richard Mejia MD at 08/02/2024 11:14 PM EDT documented in this encounterOSU [facility] Nurse Note* Rachell Ruffin RN - 08/02/2024 3:13 PM EDT 9 cc air instilled in right radial TR band @ 1520. Glasses placed in bag wit label. Sent to PACU with patient on cart. documented in this encounterOSU [facility] Discharge summary [facility] Medical Records Department [address] [place] [address] Emergency Department Summary 08/02/24 MR#: [id number] Acct: [id number] Name: LINDSAY ACUNA Rep #:[id number] : [...] the EMR. states they returned home from [facility] about 1.5-2 weeks ago, and they both had colds. He is better, but she is "on round 2." [facility] Medical History Paroxysmal atrial fibrillation with [...] 71.4 H Lymph % (Auto) 17.9 L [place] % (Auto) 8.9 Eos % (Auto) 1.0 [...] 08/02/2024 at 1250 hours. Reading Location: [facility] Head/Neck CTA 08/02/24 12:24 IMPRESSION: RIGHT CAROTID: Mild degree of calcific plaque at the origin of the right internal carotid artery. LEFT CAROTID: Mild degree of calcific plaque at the origin of the left internal carotid artery. VERTEBRALS: Dominant left vertebral artery INTRACRANIAL: Unremarkable Other impression: No significant stenosis seen. Reading Location: [place] [address] Rhythm Strip Rhythm Strip: A-fib Rate: 90 Ectopy: None EKG Initial EKG: Attestation: I personally reviewed and interpreted this EKG as follows: Interpretation: No Acute Injury Pattern, Atrial Fibrillation and Non-Specific ST Changes Management Discussion w/another healthcare provider: Regional Account Manager ([facility] stroke neurology) and Radiologist Stroke Documentation [...] min), Including time spent:, Discussing w/Patient &/or Family/Independent Contractor, Discussing w/Consultants, Arranging Admission or Transfer and [...] MD [Primary Care Provider] - Print Language: Marshallese Disposition Disposition: Acute Care Hospital [facility] What to do if you have Problems For any increased pain, shortness of breath, bleeding, nausea or vomiting, chestpain, or any unexpected problems, contact your Primary Care Provider. Call Doctors Registry ([phone]) or report tothe closest Emergency Room. Call 911 if necessary. 08/02/24 1316 Cosigner Signature (if applicable): CC: Dr. Kameron Caruso MD ~ Signed [facility]03-21-2025 Radiology Diagnostic study note [facility] Imaging Services [address] [place] [address] STROKE CTA Head AND Neck W/Con MR#: [id number] Acct: [id number] Name: LINDSAY ACUNA Rep #: [id number] : 1945 F 78 From: Regulo Hargrove MD PCP: Dr. Kameron Caruso MD Status: RE G ER Study:STROKE CTA Head AND Neck W/Con Date of Exam: 08/02/24 Exam# [id number] Ordering Dr: Roby Morgan MD PROCEDURE: STROKE [...] impression: No significant stenosis seen. Reading Location: [place] [address] CC: Dr. Pieter Morgan MD; Dr. Kameron Caruso MD ~ Tube Man: Signed [facility]03-21-2025 Radiology Diagnostic study note [facility] Imaging Services [address] [place] [address] [id number] STROKE Brain/Head without Cont MR#: [id number] Acct: [id number] Name: LINDSAY ACUNA Rep #: [id number] : 1945 F 78 From: Shira Cardoso MD PCP: Dr. Kameron Caruso MD Status: RE G ER Study:STROKE Brain/Head without Cont Date of Exam: 08/02/24 Exam# [id number] Ordering Dr: Roby Morgan MD EXAM: CT [...] 08/02/2024 at 1250 hours. Reading Location: [facility] CC: Dr. Pieter Morgan MD; Dr. Kameron Caruso MD ~ Tube Man: Signed [facility]02-19-2025 Telephone encounter Note* Telephone Encounter - Mj Glover APRN.CNP - 07/03/2024 12:28 PM EST The following approved medication requests have been transmitted electronically. Requested Prescriptions Signed Prescriptions Disp Refills doxycycline monohydrate (MONODOX) 100 mg capsule 56 capsule 0 Sig: Take 1 capsule by mouth two times a day for 28 days. Authorizing Provider: MJ GLOVER APRN.CNP [facility]02-19-2025 Miscellaneous Notes* Telephone Encounter - Mj [...] calling: self Call patient at: on cell [phone] (home) [phone] (cell) Was an appointment scheduled: No Closing statement: Results or non-symptom based questions: Thank you for calling [facility], your call will be returned within the next business day. Katrina Coombs documented in this encounterMansfield Hospital02-19-2025 Telephone encounter Note * Telephone Encounter [...] calling: self Call patient at: on cell [phone] (home) [phone] (cell) Was an appointment scheduled: No Closing statement: Results or non-symptom based questions: Thank you for calling [facility], your call will be returned within the next business day. Katrina Coombs [facility]02-18-2025 Telephone encounter Note* Telephone Encounter - Katia Álvarez RN - 07/02/2024 11:57 AM EST Patient calls and is requesting Cardiology referral to be faxed to [facility]. Faxed referral as requested. Katia Álvarez RN [facility]02-18-2025 Miscellaneous Notes* Telephone Encounter - Katia Álvarez RN - 07/02/2024 11:57 AM EST Patient calls and is requesting Cardiology referral to be faxed to [facility]. Faxed referral as requested. Katia Álvarez RN documented in this encounterMansfield Hospital02-17-2025 Telephone encounter Note * Telephone Encounter - Bret Arambula LPN - 07/01/2024 12:39 PM EST Patient notified of Rx, verbalizes understanding of instructions. Bret Arambula LPN [facility]02-17-2025 Miscellaneous Notes* Telephone Encounter - Bret [...] calling: self Call patient at: on cell [phone] (home) [phone] (cell) Was an appointment scheduled: Leslie Swanson documented in this encounterMansfield Hospital02-17-2025 Telephone encounter Note * Telephone Encounter [...] 7 days. Authorizing Provider: MJ GLOVER APRN.CNP [facility]02-14-2025 Telephone encounter Note* Telephone Encounter - Adenike Walton MA - 06/28/2024 3:08 PM EST Please review pt message and advise. Adenike Walton MA [facility]02-14-2025 Telephone encounter Note* Telephone Encounter - [...] calling: self Call patient at: on cell [phone] (home) [phone] (cell) Was an appointment scheduled: Leslie Swanson [facility]02-12-2025 Instructions* Patient Instructions* Emma Glasgow APRN.CNP - 06/26/2024 10:00 AM EST Recommend consult with cardiology Continue to take all medication as prescribed Get repeat thyroid labs when you get back from vacation Contact the office with preferred malaria medication Follow up in 6 months. documented in this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 Call [facility] ([phone]) or report to the closest Emergency Room. Call 911 if necessary. 08/02/24 1316 <Electronically signed by Pieter Morgan MD> Cosigner Signature (if applicable): CC: Dr. Kameron Caruso MD ~ [facility] Work Phone: Evaluation note* Diagnosis Need for vaccination- Primary Need for prophylactic vaccination and inoculation against unspecified single disease documented in this encounter [facility] note* Diagnosis Type 2 diabetes mellitus with diabetic chronic kidney disease, unspecified CKD stage, unspecified whether prison insulin use (HCC)- Primary Essential hypertension, benign Hyperlipidemia, unspecified hyperlipidemia type Stage 3b chronic kidney disease (HCC) Hypothyroidism, unspecified type Memory loss [facility] [place]* Diagnosis Type 2 diabetes mellitus with diabetic chronic kidney disease, unspecified CKD stage, unspecified whether prison insulin use (HCC)- Primary documented in this encounter [facility] note* Diagnosis Hyperlipidemia, unspecified hyperlipidemia type Essential hypertension, benign Type 2 diabetes mellitus with diabetic chronic kidney disease, unspecified CKD stage, unspecified whether prison insulin use (HCC) documented in this encounter [facility] note* Diagnosis Type 2 diabetes mellitus with diabetic chronic kidney disease, unspecified CKD stage, unspecified whether prison insulin use (HCC) Essential hypertension, benign Hyperlipidemia, unspecified hyperlipidemia type documented in this encounter [facility] note* Diagnosis Acute midline low back pain without sciatica- Primary documented in this encounter [facility] note* Diagnosis Type 2 diabetes mellitus with diabetic chronic kidney disease, unspecified CKD stage, unspecified whether termination clerk insulin use (HCC)- Primary documented in this encounter [facility] note* Diagnosis Essential hypertension, benign- Primary Hypothyroidism, unspecified type Type 2 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, without long-term current use of insulin (HCC) Hyperlipidemia, unspecified hyperlipidemia type Chronic kidney disease, stage 3a (HCC) Edema of left lower leg Wellness examination documented in this encounter [facility] note* Diagnosis Type 2 diabetes mellitus with diabetic chronic kidney disease, unspecified CKD stage, unspecified whether prison insulin use (HCC) documented in this encounter [facility] note* Diagnosis Allergic contact dermatitis due to plant- Primary Contact dermatitis and other eczema due to plants (except food) documented in this encounter [facility] note* Diagnosis Rash- Primary Rash and other nonspecific skin eruption documented in this encounter [facility] note* Diagnosis Type 2 diabetes mellitus with diabetic chronic kidney disease, unspecified CKD stage, unspecified whether prison insulin use (HCC)- Primary Essential hypertension, benign Chronic kidney disease, stage 3a (HCC) Hyperlipidemia, unspecified hyperlipidemia type Hypothyroidism, unspecified type Edema of left lower leg Memory loss documented in this encounter [facility] note* Diagnosis Essential hypertension, benign- [...] (HCC) documented in this encounter [facility] note* Diagnosis Atrial fibrillation, unspecified type (HCC)- Primary Hypothyroidism, unspecified type Need for malaria prophylaxis [facility] [place]* Diagnosis History of traveler's diarrhea- Primary Personal history of other diseases of digestive system documented in this encounter [facility] note* Diagnosis History of traveler's diarrhea Personal history of other diseases of digestive system documented in this encounter [facility] [place] noteNo assessment information availableWMount St. Mary Hospital Work Phone: Evaluation note* Diagnosis Acute ischemic right MCA stroke- Primary Unspecified cerebral artery occlusion with cerebral infarction Cerebrovascular accident (CVA), unspecified mechanism Renal disease (High Serum Creatinine) Unspecified disorder of kidney and ureter Type 2 diabetes mellitus with hyperglycemia Type II or unspecified type diabetes mellitus without mention of complication, not stated as uncontrolled documented [facility] Narrative No data available for this section Tyler Hackett Reason for referral (narrative)* Outpatient Procedure (Routine) - Pending Review Specialty Diagnoses / Procedures Referred By Contteofilo t Ref[facility] Diagnoses Atrial fibrillation, unspecified type (HCC) Procedures ECHO ECHO TTHRC R-T 2D W/WOM-MODE COMPL SPEC&COLR D Kameron Caruso MD [address] [place] [address] [facility] [place] [address] [place] [address] Referral ID Status Reason Start Date Expiration Date Visits Requested Visits Authorized [id number] Pending Review Auto-Generat ed Referral 05/31/2024 05/31/2025 1 1 * Outpatient Procedure (Routine) - New Request Specialty Diagnoses / Procedures Referred By Contteofilo t Referred To Contact [facility] Diagnoses Irregular heart beat Procedures ECG COMPLETE ECG ROUTINE ECG W/LEAST 12 LDS W/I&R Kameron Caruso MD [address] [place] [address] [facility] [place] [address] [place] [address] Referral ID Status Reason Start Date Expiration Date Visits Requested Visits Authorized [id number] New Request Auto-Generat ed Referral 05/31/2024 05/31/2025 1 1 [facility] for referral (narrative)No reason for referral information availableWMount St. Mary Hospital Work Phone: Reason for visit Narrative* Auth/Cert Specialty Diagnoses / Procedures Referred By Contac t Referred To Contact Diagnoses Acute ischemic right MCA stroke Cerebrovascular Accident (Level A Ishemic Stroke) Prema Rodgers MD [address] [place] [address] Phone: tel: fax: [facility] [address] [place] [address] Referral ID Status Reason Start Date Expiration Date Visits Re quested Visits Authorized [id number] 1 1 [facility] Summary Purpose Family History No Family History Records Found Relationship Condition Age at Onset Recorded Date/T monse mother Diabetes mellitus Unknown Hypertension Unknown Psychiatric disorder Unknown grandmother Malignant neoplasm Unknown sister Disorder of thyroid Unknown Advance Directives No Advanced Directives Records FoundDocuments on File Type Date Recorded 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 Advance Directives and Living Will Power of Physiotherapist'S Assistant Latest Code Status on File Code Status Date Activated Date Inactivated Comments Full Code 01/09/2019 10:16 AM Latest Code Status on File Code Status Date Activated Date Inactivated Comments Full Code 10/16/2019 9:16 AM Full Code 01/09/2019 10:16 AM 01/09/2019 2:23 PM Documents on File Type Date Recorded 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 No August 02, 2024 12:46pm Date Activated Date Inactivated Comments 08/02/2024 5:50 PM Discharge Instructions * Instructions* Prema Arellano, ZOE - 01/09/2019 Colonoscopy: What to expect at [...] patient had a polyp identified by on {time:35262}. Biopsies {are/were w not:9034} taken. The patient's usual bowel pattern is {bowel pattern:92891}. Bowel movements {bowel changes:85741} . {abd pain:89173}. The patient has noted{bleeding with BM:06233}. The patient {does/do/not:06930} have a family history of colon polyps. The patient {does/do/not:97603} have a family history of colon cancer. [...] WORK September 10, 2024 5:0 0am AFIB ([facility]) October 02, 2024 9:29a m Chief [...] WORK October 01, 2024 5:00a m AFIB ([facility]) October 02, 2024 9:29a m LAB [...] WORK October 01, 2024 5:00a m AFIB ([facility]) October 02, 2024 9:29a m LAB [...] WORK October 01, 2024 5:00a m [facility] October 02, 2024 9:29a m LAB [...] 2024 6:00 pm RETIREMENT LAB WORK November 05, 2024 5: 00am RETIREMENT LAB WORK November 12, 2024 5:0 0am RETIREMENT LAB WORK November 19, 2024 4:0 0am New Concern November 20, 2024 10:49 am LABWORK November 25, 2024 2:00 am RETIREMENT LAB WORK November 26, 2024 5: 20am New Concern November 28, 2024 4:43 pm RETIREMENT LAB WORK December 03, 2024 5: 00am Chief Complaint Admit Date LAB WORK September 10, 2024 5:0 0am ADMISSION EXAM September 10, 2024 12: 49pm ADMISSION EXAM September 11, 2024 3:0 8pm LAB WORK September 17, 2024 5:00am LABWORK September 24, 2024 5:00a m LAB WORK September 29, 2024 5:44p m LAB WORK October 01, 2024 5:00a m AFIB ([facility]) October 02, 2024 9:29a m LAB [...] 2024 6:00 pm RETIREMENT LAB WORK November 05, 2024 5: 00am RETIREMENT LAB WORK November 12, 2024 5:0 0am RETIREMENT LAB WORK November 19, 2024 4:0 0am New Concern November 20, 2024 10:49 am LABWORK November 25, 2024 2:00 am RETIREMENT LAB WORK November 26, 2024 5: 20am RETIREMENT LAB WORK December 03, 2024 5: 00am Chief Complaint Admit Date LAB WORK September 10, 2024 5:0 0am ADMISSION EXAM September 10, 2024 12: 49pm ADMISSION EXAM September 11, 2024 3:0 8pm LAB WORK September 17, 2024 5:00am LABWORK September 24, 2024 5:00a m LAB WORK September 29, 2024 5:44p m LAB WORK October 01, 2024 5:00a m AFIB ([facility]) October 02, 2024 9:29a m LAB [...] 2024 6:00 pm RETIREMENT LAB WORK November 05, 2024 5: 00am RETIREMENT LAB WORK November 12, 2024 5:0 0am RETIREMENT LAB WORK November 19, 2024 4:0 0am New Concern November 20, 2024 10:49 am LABWORK November 25, 2024 2:00 am RETIREMENT LAB WORK November 26, 2024 5: 20am New Concern November 28, 2024 4:43 pm RETIREMENT LAB WORK December 03, 2024 5: 00am RETIREMENT LAB WORK December 10, 2024 6: 20am RETIREMENT LAB WORK December 17, 2024 5 :00am RETIREMENT LAB WORK December 24, 2024 5:00am RETIREMENT LAB WORK December 31, 2024 4:00am MONTHLY EXAM December 31, 2024 12 :07pm Chief Complaint Admit Date RETIREMENT LAB WORK October 22, 2024 5: 00am NEW CONCERN October 22, 2024 12:4 5pm RETIREMENT LAB WORK October 23, 2024 5: 00am RETIREMENT LAB WORK October 29, 2024 5: 00am FU VISIT October 29, 2024 7:15 pm NEW CONCERN October 30, 2024 6:00 pm RETIREMENT LAB WORK November 05, 2024 5: 00am RETIREMENT LAB WORK November 12, 2024 5:0 0am RETIREMENT LAB WORK November 19, 2024 4:0 0am New Concern November 20, 2024 10:49 am LABWORK November 25, 2024 2:00 am RETIREMENT LAB WORK November 26, 2024 5: 20am New Concern November 28, 2024 4:43 pm RETIREMENT LAB WORK December 03, 2024 5: 00am RETIREMENT LAB WORK December 10, 2024 6: 20am RETIREMENT LAB WORK December 17, 2024 5 :00am RETIREMENT LAB WORK December 24, 2024 5:00am RETIREMENT LAB WORK December 31, 2024 4:00am MONTHLY EXAM December 31, 2024 12 :07pm RETIREMENT LAB WORK January 07, 2025 4:00am RETIREMENT LAB WORK January 14 4:00am LABWORK January 21, 2025 5:00am RETIREMENT LAB WORK January 28 5:00am RETIREMENT LAB WORK February 04 5:07am Chief Complaint Admit Date RETIREMENT LAB WORK November 12, 2024 5:0 0am RETIREMENT LAB WORK November 19, 2024 4:0 0am New Concern November 20, 2024 10:49 am LABWORK November 25, 2024 2:00 am RETIREMENT LAB WORK November 26, 2024 5: 20am New Concern November 28, 2024 4:43 pm RETIREMENT LAB WORK December 03, 2024 5: 00am RETIREMENT LAB WORK December 10, 2024 6: 20am RETIREMENT LAB WORK December 17, 2024 5 :00am RETIREMENT LAB WORK December 24, 2024 5:00am RETIREMENT LAB WORK December 31, 2024 4:00am MONTHLY EXAM December 31, 2024 12 :07pm RETIREMENT LAB WORK January 07, 2025 4:00am RETIREMENT LAB WORK January 14 4:00am LABWORK January 21, 2025 5:00am RETIREMENT LAB WORK January 28 5:00am RETIREMENT LAB WORK February 04 5:07am RETIREMENT LAB WORK February 11 6:03am RETIREMENT LAB WORK February 25, 2025 4:07am Additional Source Comments INFORMATION SOURCE (unrecogn ized section and content) DATE CREATED AUTHOR 08/31/2018 [facility] ([place]) DATE CREATED AUTHOR AUTHOR'S ORGANIZ ATION 10/18/2019 [facility] DATE CREATED AUTHOR AUTHOR'S ORGANIZ ATION 08/04/2024 [facility] [employer] DATE CREATED AUTHOR AUTHOR'S ORGANIZ ATION 08/07/2024 [facility] DATE CREATED AUTHOR AUTHOR'S ORGANIZ ATION 09/01/2024 [facility] DATE CREATED AUTHOR AUTHOR'S ORGANIZ ATION 11/08/2024 [facility] DATE CREATED AUTHOR AUTHOR'S ORGANIZ ATION 02/17/2025 [facility] DATE CREATED AUTHOR AUTHOR'S ORGANIZ ATION 03/26/2025 [facility] Source Comments (unrecognize d section and content) In the event this informatio n is protected by the Federal Confidentiality of Alcohol and Drug Abuse Patient Records regulations: The Federal rules restrict any use of the information to criminally investigate or prosecute any alcohol or drug abuse patient.[facility] the event this information is protected by the Federal Confidentiality of Alcohol and Drug Abuse Patient Records regulations: The Federal rules restrict any use of the information to criminally investigate or prosecute any alcohol or drug abuse patient.[facility] HospitalIn the event this information is protected by the Federal Confidentiality of Alcohol and Drug Abuse Patient Records regulations: The Federal rules restrict any use of the information to criminally investigate or prosecute any alcohol or drug abuse patient.[facility] HospitalIn the event this information is protected by the Federal Confidentiality of Alcohol and Drug Abuse Patient Records regulations: The Federal rules restrict any use of the information to criminally investigate or prosecute any alcohol or drug abuse patient.[facility] HospitalIn the event this information is protected by the Federal Confidentiality of Alcohol and Drug Abuse Patient Records regulations: The Federal rules restrict any use of the information to criminally investigate or prosecute any alcohol or drug abuse patient.[facility] HospitalIn the event this information is protected by the Federal Confidentiality of Alcohol and Drug Abuse Patient Records regulations: The Federal rules restrict any use of the information to criminally investigate or prosecute any alcohol or drug abuse patient.[facility] HospitalIn the event this information is protected by the Federal Confidentiality of Alcohol and Drug Abuse Patient Records regulations: The Federal rules restrict any use of the information to criminally investigate or prosecute any alcohol or drug abuse patient.[facility] HospitalIn the event this information is protected by the Federal Confidentiality of Alcohol and Drug Abuse Patient Records regulations: The Federal rules restrict any use of the information to criminally investigate or prosecute any alcohol or drug abuse patient.[facility] HospitalIn the event this information is protected by the Federal Confidentiality of Alcohol and Drug Abuse Patient Records regulations: The Federal rules restrict any use of the information to criminally investigate or prosecute any alcohol or drug abuse patient.[facility] HospitalIn the event this information is protected by the Federal Confidentiality of Alcohol and Drug Abuse Patient Records regulations: The Federal rules restrict any use of the information to criminally investigate or prosecute any alcohol or drug abuse patient.[facility] HospitalIn the event this information is protected by the Federal Confidentiality of Alcohol and Drug Abuse Patient Records regulations: The Federal rules restrict any use of the information to criminally investigate or prosecute any alcohol or drug abuse patient.[facility] HospitalIn the event this information is protected by the Federal Confidentiality of Alcohol and Drug Abuse Patient Records regulations: The Federal rules restrict any use of the information to criminally investigate or prosecute any alcohol or drug abuse patient.[facility] HospitalIn the event this information is protected by the Federal Confidentiality of Alcohol and Drug Abuse Patient Records regulations: The Federal rules restrict any use of the information to criminally investigate or prosecute any alcohol or drug abuse patient.[facility] HospitalIn the event this information is protected by the Federal Confidentiality of Alcohol and Drug Abuse Patient Records regulations: The Federal rules restrict any use of the information to criminally investigate or prosecute any alcohol or drug abuse patient.[facility] HospitalIn the event this information is protected by the Federal Confidentiality of Alcohol and Drug Abuse Patient Records regulations: The Federal rules restrict any use of the information to criminally investigate or prosecute any alcohol or drug abuse patient.[facility] HospitalIn the event this information is protected by the Federal Confidentiality of Alcohol and Drug Abuse Patient Records regulations: The Federal rules restrict any use of the information to criminally investigate or prosecute any alcohol or drug abuse patient.[facility] HospitalIn the event this information is protected by the Federal Confidentiality of Alcohol and Drug Abuse Patient Records regulations: The Federal rules restrict any use of the information to criminally investigate or prosecute any alcohol or drug abuse patient.[facility] HospitalIn the event this information is protected by the Federal Confidentiality of Alcohol and Drug Abuse Patient Records regulations: The Federal rules restrict any use of the information to criminally investigate or prosecute any alcohol or drug abuse patient.[facility] HospitalIn the event this information is protected by the Federal Confidentiality of Alcohol and Drug Abuse Patient Records regulations: The Federal rules restrict any use of the information to criminally investigate or prosecute any alcohol or drug abuse patient.[facility] HospitalIn the event this information is protected by the Federal Confidentiality of Alcohol and Drug Abuse Patient Records regulations: The Federal rules restrict any use of the information to criminally investigate or prosecute any alcohol or drug abuse patient.[facility] HospitalIn the event this information is protected by the Federal Confidentiality of Alcohol and Drug Abuse Patient Records regulations: The Federal rules restrict any use of the information to criminally investigate or prosecute any alcohol or drug abuse patient.[facility] HospitalIn the event this information is protected by the Federal Confidentiality of Alcohol and Drug Abuse Patient Records regulations: The Federal rules restrict any use of the information to criminally investigate or prosecute any alcohol or drug abuse patient.[facility] HospitalIn the event this information is protected by the Federal Confidentiality of Alcohol and Drug Abuse Patient Records regulations: The Federal rules restrict any use of the information to criminally investigate or prosecute any alcohol or drug abuse patient.[facility] HospitalIn the event this information is protected by the Federal Confidentiality of Alcohol and Drug Abuse Patient Records regulations: The Federal rules restrict any use of the information to criminally investigate or prosecute any alcohol or drug abuse patient.[facility] HospitalIn the event this information is protected by the Federal Confidentiality of Alcohol and Drug Abuse Patient Records regulations: The Federal rules restrict any use of the information to criminally investigate or prosecute any alcohol or drug abuse patient.[facility] HospitalIn the event this information is protected by the Federal Confidentiality of Alcohol and Drug Abuse Patient Records regulations: The Federal rules restrict any use of the information to criminally investigate or prosecute any alcohol or drug abuse patient.[facility] HospitalIn the event this information is protected by the Federal Confidentiality of Alcohol and Drug Abuse Patient Records regulations: The Federal rules restrict any use of the information to criminally investigate or prosecute any alcohol or drug abuse patient.[facility] HospitalIn the event this information is protected by the Federal Confidentiality of Alcohol and Drug Abuse Patient Records regulations: The Federal rules restrict any use of the information to criminally investigate or prosecute any alcohol or drug abuse patient.[facility] Reason for Visit (unrecogniz ed section [...] Comments request for medication Reason Comments [facility] requesting verbal agree to f ollow Care Teams (unrecognized sec tion and content) Automatic Embroidery Machine Tender Relationship Specialty Start Date End Date Kameron Caruso MD [address] [place] [address] PCP - General Family Practice 09/21/15 Automatic Embroidery Machine Tender Relationship Specialty Start Date End Date Kameron Caruso MD [address] [place] [place] [address] PCP - General Family Practice 09/21/15 Automatic Embroidery Machine Tender Relationship Specialty Start Date End Date Kameron Caruso MD [address] [place] [address] PCP - General Family Practice 09/21/15 Automatic Embroidery Machine Tender Relationship Specialty Start Date End Date Kameron Caruso MD [address] [place] [address] PCP - General Family Practice 09/21/15 Automatic Embroidery Machine Tender Relationship Specialty Start Date End Date Kameron Caruso MD [address] [place] [address] PCP - General Family Practice 09/21/15 Automatic Embroidery Machine Tender Relationship Specialty Start Date End Date Kameron Caruso MD [address] [place] [address] PCP - General Family Practice 09/21/15 Automatic Embroidery Machine Tender Relationship Specialty Start Date End Date Kameron Caruso MD [address] [place] [address] PCP - General Family Medicine 09/21/15 Automatic Embroidery Machine Tender Relationship Specialty Start Date End Date Kameron Caruso MD [address] [place] [address] PCP - General Family Medicine 09/21/15 Automatic Embroidery Machine Tender Relationship Specialty Start Date End Date Kameron Caruso MD [address] [place] [address] PCP - General Family Medicine 09/21/15 Automatic Embroidery Machine Tender Relationship Specialty Start Date End Date Kameron Caruso MD [address] [place] [address] PCP - General Family Medicine 09/21/15 Automatic Embroidery Machine Tender Relationship Specialty Start Date End Date Kameron Caruso MD [address] [place] [address] PCP - General Family Medicine 09/21/15 Automatic Embroidery Machine Tender Relationship Specialty Start Date End Date Kameron Caruso MD [address] [place] [address] PCP - General Family Medicine 09/21/15 Automatic Embroidery Machine Tender Relationship Specialty Start Date End Date Kameron Caruso MD [address] [place] [address] PCP - General Family Medicine 09/21/15 Automatic Embroidery Machine Tender Relationship Specialty Start Date End Date Kameron Caruso MD [address] [place] [address] PCP - General Family Medicine 09/21/15 Automatic Embroidery Machine Tender Relationship Specialty Start Date End Date Kameron Caruso MD [address] [place] [address] PCP - General Family Medicine 09/21/15 Automatic Embroidery Machine Tender Relationship Specialty Start Date End Date Kameron Caruso MD [address] [place] [address] PCP - General Family Medicine 09/21/15 Emma Glasgow APRN.CNP [address] [place] [address] Automatic Wheel Line Operator Family Medicine 04/21/24 Mj Glover APRN.BRONC BUSTER [address] [place] [place] [address] Automatic Wheel Line Operator Family Medicine 04/30/24 Automatic Embroidery Machine Tender Relationship Specialty Start Date End Date Kameron Caruso MD [address] [place] [address] PCP - General Family Medicine 09/21/15 Emma Glasgow APRN.BRONC BUSTER [address] [place] [address] Automatic Wheel Line Operator Family Medicine 04/21/24 Mj Glover APRN.BRONC BUSTER [address] [place] [address] Automatic Wheel Line Operator Family Medicine 04/30/24 Automatic Embroidery Machine Tender Relationship Specialty Start Date End Date Kameron Caruso MD [address] [place] [address] PCP - General Family Medicine 09/21/15 Emma Glasgow APRN.BRONC BUSTER [address] [place] [address] Automatic Wheel Line Operator Family Medicine 04/21/24 Mj Glover STAMP CLASSIFIER.BRONC BUSTER [address] [facility] [place] Automatic Wheel Line Operator Family Medicine 04/30/24 Automatic Embroidery Machine Tender Relationship Specialty Start Date End Date Kameron Caruso MD [address] [place] [address] PCP - General Family Medicine 09/21/15 Emma Glasgow APRN.BRONC BUSTER [address] [place] [address] Automatic Wheel Line Operator Family Medicine 04/21/24 Mj Glover APRN.BRONC BUSTER [address] [place] [address] Automatic Wheel Line Operator Family Medicine 04/30/24 Automatic Embroidery Machine Tender Relationship Specialty Start Date End Date Kameron Caruso MD [address] [place] [address] PCP - General Family Medicine 09/21/15 Emma Glasgow APRN.BRONC BUSTER [address] [place] [address] Automatic Wheel Line Operator Family Medicine 04/21/24 Mj Glover APRN.BRONC BUSTER [address] [place] [address] Automatic Wheel Line Operator Family Medicine 04/30/24 Automatic Embroidery Machine Tender Relationship Specialty Start Date End Date Kameron Caruso MD [address] [place] [address] PCP - General Family Medicine 09/21/15 Emma Glasgow APRN.BRONC BUSTER [address] [place] [address] Automatic Wheel Line Operator Family Medicine 04/21/24 Mj Glover APRN.BRONC BUSTER [address] [place] [address] Automatic Wheel Line Operator Family Medicine 04/30/24 Automatic Embroidery Machine Tender Relationship Specialty Start Date End Date Kameron Caruso MD [address] [place] [address] PCP - General Family Medicine 09/21/15 Emma Glasgow APRN.BRONC BUSTER [address] [facility] [place] [address] Automatic Wheel Line Operator Family Medicine 04/21/24 Mj Glover APRN.BRONC BUSTER [address] [place] [address] Automatic Wheel Line Operator Family Medicine 04/30/24 Team Status: Active Member Role Status Dates Dr. Kameron Caruso MD Primary Care Provider Active Team Status: Inactive Member Role Status Dates Dr. Kameron Caruso MD Primary Care Provider Active Start: August 02, 2024 End: August 02, 2024 Dr. Pieter Morgan MD Emergency Provider Active Start: August 02, 2024 End: August 02, 2024 Automatic Embroidery Machine Tender Relationship Specialty Start Date End Date Kameron Caruso MD [address] [place] [address] PCP - General Family Medicine 08/03/24 Automatic Embroidery Machine Tender Relationship Specialty Start Date End Date Kameron Caruso MD [address] [place] [address] PCP - General Family Medicine 09/21/15 Emma Glasgow APRN.BRONC BUSTER [address] [place] [address] Automatic Wheel Line Operator Family Medicine 04/21/24 Mj Glover APRN.BRONC BUSTER [address] [place] [address] Automatic Wheel Line Operator Family Medicine 04/30/24 Team Status: Inactive Member [...] Active Member Role Status Dates Dr. Kameron Caruos MD Primary Care Provider Active Start: September [...] End: September 11, 2024 Bret Snyder NP, WEB PUBLISHER-C Attending Provider Active Start: September 11, 2024 [...] 2024 End: October 09, 2024 Bret Snyder WEB PUBLISHER, WEB PUBLISHER-C Attending Provider Active Start: October 09, 2024 [...] End: October 30, 2024 Bret Snyder NP WEB PUBLISHER-C Attending Provider Active Start: October 30, 2024 [...] End: October 22, 2024 Bret Snyder NP WEB PUBLISHER-C Attending Provider Active Start: October 22, 2024 [...] 2024 End: October 30, 2024 Bret Snyder WEB PUBLISHER, WEB PUBLISHER-C Attending Provider Active Start: October 30, 2024 [...] Provider Active Start: November 26, 2024 Safia VARAGS MD Attending Provider Active Start: November 26, [...] End: October 30, 2024 Bret Snyder NP WEB PUBLISHER-C Attending Provider Active Start: October 30, 2024 [...] End: September 11, 2024 Bret Snyder NP, WEB PUBLISHER-C Attending Provider Active Start: September 11, 2024 [...] Status Dates Dr. Kmaeron Caruso MD Primary Care Provider Active Start: October 08, 2024 Safia VARGAS MD Attending Provider Active Start: October 08, 2024 Team Status: Inactive Member Role/Relationship Status Dates Dr. Kameron Caruso MD Primary Care Provider Active Start: October 09, 2024 End: October 09, 2024 Bret Snyder WEB PUBLISHER, WEB PUBLISHER-C Attending Provider Active Start: October 09, 2024 [...] 2024 End: October 22, 2024 Bret Snyder WEB PUBLISHER, WEB PUBLISHER-C Attending Provider Active Start: October 22, 2024 [...] 2024 End: November 20, 2024 Bret Snyder WEB PUBLISHER, WEB PUBLISHER-C Attending Provider Active Start: November 20, 2024 End: November 20, 2024 Team Status: Active Member Role/Relationship Status Dates Dr. Kameron Caruso MD Primary Care Provider Active Start: November 26, 2024 Safia VRAGAS MD Attending Provider Active Start: November 26, 2024 Safia VARGAS MD Referring Provider Active Start: November 26, 2024 Team Status: Inactive Member Role/Relationship Status Dates Dr. Kameron Caruso MD Primary Care Provider Active Start: November 28, 2024 End: November 28, 2024 Bret Snyder WEB PUBLISHER, WEB PUBLISHER-C Attending Provider Active Start: November 28, 2024 [...] End: October 22, 2024 Bret Snyder NP WEB PUBLISHER-C Attending physician Active Start: October 22, 2024 [...] 30, 2024 Bret Snyder NP, NP-C Attending physician Active Start: October 30, 2024 [...] End: November 20, 2024 Bret Snyder NP WEB PUBLISHER-C Attending physician Active Start: November 20, 2024 [...] End: November 28, 2024 Bret Snyder NP WEB PUBLISHER-C Attending physician Active Start: November 28, 2024 [...] November 28, 2024 End: November 28, 2024 ROBINA Hoff NPC Attending physician Active Start: November 28, 2024 [...] is greater than 200mg/dl, then notify greenhouse staff. And BLOOD GLUCOSE (POC DEVICE) (CANCELED) Routine, [...] 50% needed, contact pharmacy or obtain from [facility] cart ++ And glucose (GLUTOSE) 40 % [...] at 1301, Until Specified, Who to Notify: Refrigerator Mover, For all Blood Glucose LESS THAN 80 mg/dl, notify Refrigerator Mover after treatment per Hypoglycemia in Non- Adults [...] BE BASED ON THE PRIMARY CLINICAL RECORDS. [employer] [facility]. provides no warranty or guarantee of the accuracy or completeness of information in this document.
[2025-04-15 08:00] LABS: Hematocrit 36.5 % (37-47); Hemoglobin 11.4 g/dL (12.0-15.0); Immature Granulocytes Count 0.040 X10^3/uL (0.0-0.0); Mean Corp Hgb Conc 31.2 g/dL (32-36); Mean Corpuscular Volume 95.5 fL (81-99); Mean Platelet Vol. 12.1 fl (6.2-12.0); NRBC Flagged by Analyzer 0 % (0-5); Platelet Count 286 K/mm3 (150-450); RBC Distribution Width CV 13.8 % (11.6-14.6); RBC Distribution Width SD 48.4 fl (35.1-43.9); Red Blood Count 3.82 M/mm3 (4.2-5.4); White Blood Count 9.9 K/mm3 (4.4-11.0)
[2025-04-15 08:16] LABS: Anion Gap 13 (5-15); BUN 18 mg/dL (4-19); BUN/Creat Ratio 23.0 RATIO (10-20); Calcium,Total 9.1 mg/dL (7.6-11.0); Carbon Dioxide 23.4 mmol/L (21.0-32.0); Chloride 103 mmol/L (98-108); Glucose 109 mg/dL (70-99); Potassium 3.9 mmol/L (3.3-5.1)
== END ==
LOC: OLS.WHLTCC 05:00
PROVIDERS: PCP Family Medicine; Visit Provider Internal Medicine
DX: E11.9 Type 2 diabetes mellitus without complications (principal); I10 Essential (primary) hypertension; Z86.73 Personal history of transient ischemic attack (TIA), and cerebral infarction without residual deficits
CPT/HCPCS: 36415; 80048; 85025

== ENCOUNTER → 2025-04-22 05:00 | Outpatient (REF) | payer MEDICARE, SELFPAY ==
--- OUTSIDE RECORDS SUMMARY | 2025-04-22 04:51 | XMS RPT_ITS | CCD ---
Author Organization [facility] Care Team Providers Care Assembly Line Upholsterer Name Role Phone KETTY DOWNS Attending Unavailable [...] Kameron Caruso MD Primary Care Provider Светлана SERVICE GREETER.Emma TUCKER Unavailable Saurav SERVICE GREETER.Mj TUCKER Unavailable JUVENTINO ROGERS Attending Unavailable JUVENTINO ROGERS Admitting Unavailable CATA ALFRED Attending Unavailable CATA ALFRED Admitting Unavailable Dr. Kameron Caruso MD Primary Care Provider [phone] Dr. Pieter Morgan MD Emergency Provider Kameron Caruso MD Primary Care Provider Светлана SERVICE GREETER.Emma TUCKER Unavailable Unavail able KAMERON CARUSO Referring [...] Dr. Safia Ruelas MD Attending Provider Claudio TUNNEL KILN REPAIRER-CBret Attending Provider Safia Ruelas MD Referring Provider UnavailDr. Kameron Marquez MD Primary Care Provider [phone] Safia Ruelas MD Attending Provider UnavailDr. Safia Ulloa MD Attending Provider Claudio TUNNEL KILN REPAIRER-C, Bret Attending Provider Safia Ruelas MD Referring Provider UnavailDr. Kameron Marquez MD Referring Provider Dr. Mj Benavides MD Attending Provider Dr. Kameron Caruso MD Primary Care Physician Safia Ruelas MD Attending Physician Unavail able Claudio TUNNEL KILN REPAIRER-CBret Attending Physician Dr. Safia Ruelas MD Attending Physician Safia Ruelas MD Referring Provider Alexandra CARUSO MD, DR MELO Primary Care Unavailab shital PEARL DO, SILVINO Admitting Unavailable DAE DO, SILVINO Attending Unavailable BRYON LAWSON, DR REECE Consulting Unavailab shital CORRINE DO, NANDO Consulting Unavailable SUDARSHAN SERVICE GREETER-TOBACCO STEMMER, AMI Hwang Consulting Unavailjair GIBSON PhD, MATTHEW Zamudio Consulting Unavailable Zuly LAWSON, Dr. Melo Primary Care Physician Safia Ruelas MD Attending Physician Unavail able Claudio CASH-CBret Attending Physician Jessenia LAWSON, Dr. Baig Attending Physician [phone] Kameron Caruso Primary Care Unavailable Oleghe OLS, [...] Unavailable Elderbrock, Kameron Primary Care Unavailable Tickton TUNNEL KILN REPAIRER, Bret Attending Unavailable Oleghe OLS, Efewongbe Attending Unavailabl e Elderbrock, Kameron Primary Care Unavailable Elderbrock, Kameron Primary Care Unavailable Oleghe, Efewongbe Attending Unavailable Elderbrock, Kameron Primary Care Unavailable Mj Benavides Attending Unavailable Elderbrock, Kameron Referring Unavailable Elderbrock, Kameron Primary Care Unavailable Oleghe, Efewongbe Attending Unavailable Tickton TUNNEL KILN REPAIRER, Bret Attending Unavailable Elderbrock, Kameron Primary Care Unavailable Tickton TUNNEL KILN REPAIRER, Bret Attending Unavailable Elderbrock, Kameron Primary Care Unavailable Oleghe, Efewongbe Attending Unavailable Elderbrock, Kameron Primary Care Unavailable Tickton TUNNEL KILN REPAIRER, Bret Attending Unavailable Elderbrock, Kameron Primary Care Unavailable Tickton TUNNEL KILN REPAIRER, Bret Attending Unavailable Elderbrock, Kameron Primary Care Unavailable Elderbrock, Kameron Primary Care Unavailable [place]ickton TUNNEL KILN REPAIRER, Bret Attending Unavailable Oleghe OLS, Efewongbe Attending [...] reactions to drug 6 Other (See Comments) [place], [place] (2 sources) Other Propensity to adverse reactions 6 Shortness Of Breath [place], [place] (20 sources) Benzocaine; Translations: [BENZOCAINE] Drug [...] Allergy to substance 5 Unknown [facility] (15 sources) perfume; Translations: [perfume] Allergy to substance 5 Shortness of breath [facility] (1 source) Cocaine; Translations: [cocaine nasal] Drug Allergy [facility] (1 source) Codeine; Translations: [codeine] Drug Allergy Pharyngeal swelling (finding) [facility] (1 source) Sulfonamide; Translations: [sulfa drugs] Drug allergy [facility] (1 source) Benzocaine Drug Allergy 5 [facility] (1 source) Cocaine Drug Allergy 5 [facility] (1 source) Sulfonamides (Antibiotic) Drug allergy (disorder) 5 [facility] Medications Current Medications Medication Drug Class(es) [...] kidney disease, unspecified CKD stage, 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 Take [address] [facility] once daily atovaquone 250 mg / [...] Comment on above: Take [address] [facility] once daily. 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] [...] Onset: 08-15-2024 Episodic Other aftercare (1 source) half-way (current) use of aspirin; Translations: [half-way (current) use of aspirin] Onset: 08-15-2024 Episodic Other aftercare (1 source) half-way (current) use of anticoagulants; Translations: [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] Onset: 08-15-2024 Episodic Other aftercare (1 source) local intermodal 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 (current) use of oral hypoglycemic drugs; Translations: [local intermodal 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 (current) use of oral [...] Auto (Unsp spec) [#/Vol] 2.89 10*3/uL 0.83-4.51 [facility] Anion gap in Serum or Plasma Ordered By: Safia Ruelas on 03-04-2025 Anion gap [Moles/Vol] 12 mmol/L 5-15 [facility] Automated lymphocyte count a s percentage of total leukocytesOrdered By: Safia Ruelas on 03-04-2025 Lymphocytes/100 WBC Auto (Unsp spec) 32.0 % 19- [facility] BUN/creatinine ratioOrdered By: Safia Ruelas on 03-04-2025 Urea nitrogen/Creatinine [Mass ratio] 28.8 mg/mg High 10- [facility] Basophil percentageOrdered B y: Safia Ruelas on 03-04-2025 Basophils/100 WBC (Bld) 0.7 % 0-1 [facility] Carbon dioxide, total [Moles /volume] in Central venous bloodOrdered By: Safia Ruelas on 03-04-2025 CO2 [Moles/Vol] 25.6 mmol/L 21.0-32.0 [facility] Chloride assayOrdered By: Balbir Ruelas on 03-04-2025 Chloride [Moles/Vol] 104 mmol/L 98-108 [facility] Eosinophil percentageOrdered By: Safia Ruelas on 03-04-2025 Eosinophils/100 WBC (Bld) 2.1 % 0-5 [facility] Erythrocyte distribution wid th ratioOrdered By: Safia Ruelas on 03-04-2025 Erythrocyte distribution width (RBC) [Ratio] 14.5 % 11.6-14.6 [facility] Erythrocyte distribution wid th standard deviationOrdered By: Safia Ruelas on 03-04-2025 Erythrocyte distribution width (RBC) [Ratio] 50.6 fl High 35.1-43.9 [facility] Glomerular filtration rate ( GFR) estimation/1.73 sq m using serum, plasma, or whole bOrdered By: Safia Ruelas on 03-04-2025 GFR/1.73 sq M.predicted among non-blacks MDRD (S/P/Bld) [Vol rate/Area] 73 mL/min/{1.73_m2} >60 [facility] Hematocrit Auto (Bld) [Volum e fraction]Ordered By: Safia Ruelas on 03-04-2025 Hematocrit (Bld) [Volume fraction] 38.1 % 37-47 [facility] Hemoglobin measurementOrdere d By: Safia Ruelas on 03-04-2025 Hemoglobin (Bld) [Mass/Vol] 12.0 g/dL 12.0-15.0 [facility] Immature granulocytes/100 WB C Auto (Bld)Ordered By: Safia Ruelas on 03-04-2025 Immature granulocytes/100 WBC (Bld) 0.300 % 0.0-0.9 [facility] MCV (mean corpuscular volume ) determinationOrdered By: Safia Ruelas on 03-04-2025 MCV (RBC) [Entitic vol] 94.1 fL 81-99 [facility] Mean corpuscular hemoglobin (MCH) determinationOrdered By: Safia Ruelas on 03-04-2025 MCH (RBC) [Entitic mass] 29.6 pg 27.0-32.0 [facility] Monocyte percentageOrdered B y: Safia Ruelas on 03-04-2025 Monocytes/100 WBC (Bld) 8.5 % 0-10 [facility] Neutrophil percentageOrdered By: Safia Ruelas on 03-04-2025 Neutrophils/100 WBC (Bld) 56.4 % 47-70 [facility] Platelet countOrdered By: Balbir Ruelas on 03-04-2025 Platelets (Bld) [#/Vol] 246 10*3/uL 150-450 [facility] Potassium measurement (mass/ volume)Ordered By: Safia Ruelas on 03-04-2025 Potassium (Unsp spec) [Mass/Vol] 3.9 mmol/L 3.3-5.1 [facility] RBC Auto (Bld) [#/Vol]Ordere d By: Safia Ruelas on 03-04-2025 RBC (Bld) [#/Vol] 4.05 10*6/uL Low 4.2-5.4 [facility] Serum creatinine measurement (mass/volume)Ordered By: Safia Ruelas on 03-04-2025 Creatinine [Mass/Vol] 0.82 mg/dL 0.70-1.20 [facility] Serum glucose measurement (m ass/volume)Ordered By: Safia Ruelas on 03-04-2025 Glucose [Mass/Vol] 157 mg/dL High 70-99 [facility] Serum or plasma calcium dayna urement (mass/volume)Ordered By: Safia Ruelas on 03-04-2025 Calcium [Mass/Vol] 9.4 mg/dL 7.6-11.0 [facility] Serum or plasma urea nitroge n measurement (mass/volume)Ordered By: Safia Ruelas on 03-04-2025 Urea nitrogen [Mass/Vol] 24 mg/dL High 4-19 [facility] Sodium levelOrdered By: Leonides Ruelas on 03-04-2025 Sodium [Moles/Vol] 142 mmol/L 133-145 [facility] White blood cell (WBC) count Ordered By: Safia Ruelas on 03-04-2025 WBC (Bld) [#/Vol] 9.0 10*3/uL 4.4-11.0 [facility] Absolute lymphocyte countOrd ered By: Safia Ruelas on 02-25-2025 Lymphocytes Auto (Unsp spec) [#/Vol] 3.32 10*3/uL 0.83-4.51 [facility] Anion gap in Serum or Plasma Ordered By: Safia Ruelas on 02-25-2025 Anion gap [Moles/Vol] 12 mmol/L 5-15 [facility] Automated lymphocyte count a s percentage of total leukocytesOrdered By: Safia Ruelas on 02-25-2025 Lymphocytes/100 WBC Auto (Unsp spec) 36.7 % 19- [facility] BUN/creatinine ratioOrdered By: Safia Ruelas on 02-25-2025 Urea nitrogen/Creatinine [Mass ratio] 20.5 mg/mg High 10- [facility] Basophil percentageOrdered B y: Safia Ruelas on 02-25-2025 Basophils/100 WBC (Bld) 0.6 % 0-1 [facility] Carbon dioxide, total [Moles /volume] in Central venous bloodOrdered By: Safia Ruelas on 02-25-2025 CO2 [Moles/Vol] 25.9 mmol/L 21.0-32.0 [facility] Chloride assayOrdered By: Balbir Ruelas on 02-25-2025 Chloride [Moles/Vol] 103 mmol/L 98-108 [facility] Eosinophil percentageOrdered By: sherry Ruelas on 02-25-2025 Eosinophils/100 WBC (Bld) 2.2 % 0-5 [facility] Erythrocyte distribution wid th ratioOrdered By: Safia Westonmelanie on 02-25-2025 Erythrocyte distribution width (RBC) [Ratio] 14.3 % 11.6-14.6 [facility] Erythrocyte distribution wid th standard deviationOrdered By: Safia Ruelas on 02-25-2025 Erythrocyte distribution width (RBC) [Ratio] 48.5 fl High 35.1-43.9 [facility] Glomerular filtration rate ( GFR) estimation/1.73 sq m using serum, plasma, or whole bOrdered By: Safia Cheobonimelanie on 02-25-2025 GFR/1.73 sq M.predicted among non-blacks MDRD (S/P/Bld) [Vol rate/Area] 75 mL/min/{1.73_m2} >60 [facility] Hematocrit Auto (Bld) [Volum e fraction]Ordered By: Safia Ruelas on 02-25-2025 Hematocrit (Bld) [Volume fraction] 39.0 % 37-47 [facility] Hemoglobin measurementOrdere d By: Safia Ruelas on 02-25-2025 Hemoglobin (Bld) [Mass/Vol] 12.3 g/dL 12.0-15.0 [facility] Immature granulocytes/100 WB C Auto (Bld)Ordered By: Safia Cheobonimelanie on 02-25-2025 Immature granulocytes/100 WBC (Bld) 0.400 % 0.0-0.9 [facility] MCV (mean corpuscular volume ) determinationOrdered By: Safia Cheobonimelanie on 02-25-2025 MCV (RBC) [Entitic vol] 92.4 fL 81-99 [facility] Mean corpuscular hemoglobin (MCH) determinationOrdered By: Safia Ruelas on 02-25-2025 MCH (RBC) [Entitic mass] 29.1 pg 27.0-32.0 [facility] Monocyte percentageOrdered B y: Safia Ruelas on 02-25-2025 Monocytes/100 WBC (Bld) 7.7 % 0-10 [facility] Neutrophil percentageOrdered By: Safia Ruelas on 02-25-2025 Neutrophils/100 WBC (Bld) 52.4 % 47-70 [facility] Platelet countOrdered By: Balbir Ruelas on 02-25-2025 Platelets (Bld) [#/Vol] 257 10*3/uL 150-450 [facility] Potassium measurement (mass/ volume)Ordered By: Safia Ruelas on 02-25-2025 Potassium (Unsp spec) [Mass/Vol] 3.5 mmol/L 3.3-5.1 [facility] RBC Auto (Bld) [#/Vol]Ordere d By: Safia Ruelas on 02-25-2025 RBC (Bld) [#/Vol] 4.22 10*6/uL 4.2-5.4 [facility] Serum creatinine measurement (mass/volume)Ordered By: Safia Ruelas on 02-25-2025 Creatinine [Mass/Vol] 0.80 mg/dL 0.70-1.20 [facility] Serum glucose measurement (m ass/volume)Ordered By: Safia Ruelas on 02-25-2025 Glucose [Mass/Vol] 121 mg/dL High 70-99 [facility] Serum or plasma calcium dayna urement (mass/volume)Ordered By: Safia Ruelas on 02-25-2025 Calcium [Mass/Vol] 9.2 mg/dL 7.6-11.0 [facility] Serum or plasma urea nitroge n measurement (mass/volume)Ordered By: Safia Ruelas on 02-25-2025 Urea nitrogen [Mass/Vol] 16 mg/dL 4-19 [facility] Sodium levelOrdered By: Leonides jiménezradha Jessenia on 02-25-2025 Sodium [Moles/Vol] 140 mmol/L 133-145 [facility] TSH DL <= 0.005 mIU/L QnOrde red By: Safia Ruelas on 02-25-2025 TSH Qn 0.226 uIU/mL Low 0.300-4.200 [facility] White blood cell (WBC) count Ordered By: Safia Ruelas on 02-25-2025 WBC (Bld) [#/Vol] 9.0 10*3/uL 4.4-11.0 [facility] Absolute lymphocyte countOrd ered By: Safia Ruelas on 02-18-2025 Lymphocytes Auto (Unsp spec) [#/Vol] 1.78 10*3/uL 0.83-4.51 [facility] Anion gap in Serum or Plasma Ordered By: Safia Ruelas on 02-18-2025 Anion gap [Moles/Vol] 13 mmol/L 5-15 [facility] Automated lymphocyte count a s percentage of total leukocytesOrdered By: Safia Ruelas on 02-18-2025 Lymphocytes/100 WBC Auto (Unsp spec) 22.5 % 19-41 [facility] BUN/creatinine ratioOrdered By: Safia Ruelas on 02-18-2025 Urea nitrogen/Creatinine [Mass ratio] 23.7 mg/mg High 10-20 [facility] Basophil percentageOrdered B y: Safia Ruelas on 02-18-2025 Basophils/100 WBC (Bld) 0.4 % 0-1 [facility] Carbon dioxide, total [Moles /volume] in Central venous bloodOrdered By: Safia Ruelas on 02-18-2025 CO2 [Moles/Vol] 23.2 mmol/L 21.0-32.0 [facility] Chloride assayOrdered By: Balbir Ruelas on 02-18-2025 Chloride [Moles/Vol] 102 mmol/L 98-108 [facility] Eosinophil percentageOrdered By: Safia Ruelas on 02-18-2025 Eosinophils/100 WBC (Bld) 0.4 % 0-5 [facility] Erythrocyte distribution wid th ratioOrdered By: Safia Ruelas on 02-18-2025 Erythrocyte distribution width (RBC) [Ratio] 14.3 % 11.6-14.6 [facility] Erythrocyte distribution wid th standard deviationOrdered By: Safia Ruelas on 02-18-2025 Erythrocyte distribution width (RBC) [Ratio] 48.0 fl High 35.1-43.9 [facility] Glomerular filtration rate ( GFR) estimation/1.73 sq m using serum, plasma, or whole bOrdered By: Safia Ruelas on 02-18-2025 GFR/1.73 sq M.predicted among non-blacks MDRD (S/P/Bld) [Vol rate/Area] 76 mL/min/{1.73_m2} >60 [facility] Hematocrit Auto (Bld) [Volum e fraction]Ordered By: Safia Ruelas on 02-18-2025 Hematocrit (Bld) [Volume fraction] 39.0 % 37-47 [facility] Hemoglobin measurementOrdere d By: Safia Ruelas on 02-18-2025 Hemoglobin (Bld) [Mass/Vol] 12.5 g/dL 12.0-15.0 [facility] Immature granulocytes/100 WB C Auto (Bld)Ordered By: Safia Ruelas on 02-18-2025 Immature granulocytes/100 WBC (Bld) 0.300 % 0.0-0.9 [facility] MCV (mean corpuscular volume ) determinationOrdered By: Safia Ruelas on 02-18-2025 MCV (RBC) [Entitic vol] 92.2 fL 81-99 [facility] Mean corpuscular hemoglobin (MCH) determinationOrdered By: Safia Ruelas on 02-18-2025 MCH (RBC) [Entitic mass] 29.6 pg 27.0-32.0 [facility] Monocyte percentageOrdered B y: Safia Ruelas on 02-18-2025 Monocytes/100 WBC (Bld) 4.8 % 0-10 [facility] Neutrophil percentageOrdered By: Safia Ruelas on 02-18-2025 Neutrophils/100 WBC (Bld) 71.6 % High 47-70 [facility] Platelet countOrdered By: Balbir Ruelas on 02-18-2025 Platelets (Bld) [#/Vol] 263 10*3/uL 150-450 [facility] Potassium measurement (mass/ volume)Ordered By: Safia Ruelas on 02-18-2025 Potassium (Unsp spec) [Mass/Vol] 4.1 mmol/L 3.3-5.1 [facility] RBC Auto (Bld) [#/Vol]Ordere d By: Safia Ruelas on 02-18-2025 RBC (Bld) [#/Vol] 4.23 10*6/uL 4.2-5.4 [facility] Serum creatinine measurement (mass/volume)Ordered By: Safia Ruelas on 02-18-2025 Creatinine [Mass/Vol] 0.79 mg/dL 0.70-1.20 [facility] Serum glucose measurement (m ass/volume)Ordered By: Safia Ruelas on 02-18-2025 Glucose [Mass/Vol] 165 mg/dL High 70-99 [facility] Serum or plasma calcium dayna urement (mass/volume)Ordered By: Safia Ruelas on 02-18-2025 Calcium [Mass/Vol] 9.2 mg/dL 7.6-11.0 [facility] Serum or plasma urea nitroge n measurement (mass/volume)Ordered By: Safia Ruelas on 02-18-2025 Urea nitrogen [Mass/Vol] 19 mg/dL 4-19 [facility] Sodium levelOrdered By: Leonides Ruelas on 02-18-2025 Sodium [Moles/Vol] 138 mmol/L 133-145 [facility] White blood cell (WBC) count Ordered By: Balbirjean mariejosé antonio Cheoquyen on 02-18-2025 WBC (Bld) [#/Vol] 7.9 10*3/uL 4.4-11.0 [facility] Absolute lymphocyte countOrd ered By: Safia Ruelas on 02-11-2025 Lymphocytes Auto (Unsp spec) [#/Vol] 2.71 10*3/uL 0.83-4.51 [facility] Anion gap in Serum or Plasma Ordered By: Balbirjean mariejosé antonio Cheobonimelanie on 02-11-2025 Anion gap [Moles/Vol] 14 mmol/L 5-15 [facility] Automated lymphocyte count a s percentage of total leukocytesOrdered By: Safia Cheoquyen on 02-11-2025 Lymphocytes/100 WBC Auto (Unsp spec) 36.1 % 19-41 [facility] BUN/creatinine ratioOrdered By: Balbirjean mariejosé antonio Cheoquyen on 02-11-2025 Urea nitrogen/Creatinine [Mass ratio] 23.1 mg/mg High 10-20 [facility] Basophil percentageOrdered B y: Safia Ruelas on 02-11-2025 Basophils/100 WBC (Bld) 0.7 % 0-1 [facility] Carbon dioxide, total [Moles /volume] in Central venous bloodOrdered By: Safia Cheobonimelanie on 02-11-2025 CO2 [Moles/Vol] 21.6 mmol/L 21.0-32.0 [facility] Chloride assayOrdered By: Balbir randallskye Griderbonimelanie on 02-11-2025 Chloride [Moles/Vol] 103 mmol/L 98-108 [facility] Eosinophil percentageOrdered By: Safia Ruelas on 02-11-2025 Eosinophils/100 WBC (Bld) 2.0 % 0-5 [facility] Erythrocyte distribution wid th ratioOrdered By: jean marieatlantaskye Ruelas on 02-11-2025 Erythrocyte distribution width (RBC) [Ratio] 14.4 % 11.6-14.6 [facility] Erythrocyte distribution wid th standard deviationOrdered By: jean marieatlantaskye Ruelas on 02-11-2025 Erythrocyte distribution width (RBC) [Ratio] 47.5 fl High 35.1-43.9 [facility] Glomerular filtration rate ( GFR) estimation/1.73 sq m using serum, plasma, or whole bOrdered By: sherry Ruelas on 02-11-2025 GFR/1.73 sq M.predicted among non-blacks MDRD (S/P/Bld) [Vol rate/Area] 72 mL/min/{1.73_m2} >60 [facility] Hematocrit Auto (Bld) [Volum e fraction]Ordered By: Safia Ruelas on 02-11-2025 Hematocrit (Bld) [Volume fraction] 37.4 % 37-47 [facility] Hemoglobin measurementOrdere d By: jean marieatlantaskye Ruelas on 02-11-2025 Hemoglobin (Bld) [Mass/Vol] 12.4 g/dL 12.0-15.0 [facility] Immature granulocytes/100 WB C Auto (Bld)Ordered By: Safia Ruelas on 02-11-2025 Immature granulocytes/100 WBC (Bld) 0.400 % 0.0-0.9 [facility] MCV (mean corpuscular volume ) determinationOrdered By: Safia Ruelas on 02-11-2025 MCV (RBC) [Entitic vol] 90.3 fL 81-99 [facility] Mean corpuscular hemoglobin (MCH) determinationOrdered By: [facility] R[facility] on 02-11-2025 MCH (RBC) [Entitic mass] 30.0 pg 27.0-32.0 [facility] Monocyte percentageOrdered B y: Safia Ruelas on 02-11-2025 Monocytes/100 WBC (Bld) 6.8 % 0-10 [facility] Neutrophil percentageOrdered By: Safia Ruelas on 02-11-2025 Neutrophils/100 WBC (Bld) 54.0 % 47-70 [facility] Platelet countOrdered By: Balbir Ruelas on 02-11-2025 Platelets (Bld) [#/Vol] 260 10*3/uL 150-450 [facility] Potassium measurement (mass/ volume)Ordered By: Safia Ruelas on 02-11-2025 Potassium (Unsp spec) [Mass/Vol] 3.6 mmol/L 3.3-5.1 [facility] RBC Auto (Bld) [#/Vol]Ordere d By: Safia Ruelas on 02-11-2025 RBC (Bld) [#/Vol] 4.14 10*6/uL Low 4.2-5.4 [facility] Serum creatinine measurement (mass/volume)Ordered By: Safia Ruelas on 02-11-2025 Creatinine [Mass/Vol] 0.83 mg/dL 0.70-1.20 [facility] Serum glucose measurement (m ass/volume)Ordered By: Safia Ruelas on 02-11-2025 Glucose [Mass/Vol] 110 mg/dL High 70-99 [facility] Serum or plasma calcium dayna urement (mass/volume)Ordered By: Safia Ruelas on 02-11-2025 Calcium [Mass/Vol] 9.1 mg/dL 7.6-11.0 [facility] Serum or plasma urea nitroge n measurement (mass/volume)Ordered By: Safia Ruelas on 02-11-2025 Urea nitrogen [Mass/Vol] 19 mg/dL 4-19 [facility] Sodium levelOrdered By: Leonides Ruelas on 02-11-2025 Sodium [Moles/Vol] 139 mmol/L 133-145 [facility] White blood cell (WBC) count Ordered By: Safia Ruelas on 02-11-2025 WBC (Bld) [#/Vol] 7.5 10*3/uL 4.4-11.0 [facility] Absolute lymphocyte countOrd ered By: Safia Ruelas on 02-04-2025 Lymphocytes Auto (Unsp spec) [#/Vol] 3.03 10*3/uL 0.83-4.51 [facility] Anion gap in Serum or Plasma Ordered By: Safia Ruelas on 02-04-2025 Anion gap [Moles/Vol] 12 mmol/L 5-15 [facility] Automated lymphocyte count a s percentage of total leukocytesOrdered By: Safia Ruelas on 02-04-2025 Lymphocytes/100 WBC Auto (Unsp spec) 36.1 % 19-41 [facility] BUN/creatinine ratioOrdered By: Safia Ruelas on 02-04-2025 Urea nitrogen/Creatinine [Mass ratio] 21.0 mg/mg High 10-20 [facility] Basophil percentageOrdered B y: Safia Ruelas on 02-04-2025 Basophils/100 WBC (Bld) 0.7 % 0-1 [facility] Carbon dioxide, total [Moles /volume] in Central venous bloodOrdered By: Safia Ruelas on 02-04-2025 CO2 [Moles/Vol] 23.5 mmol/L 21.0-32.0 [facility] Chloride assayOrdered By: Balbir Ruelas on 02-04-2025 Chloride [Moles/Vol] 103 mmol/L 98-108 [facility] Eosinophil percentageOrdered By: Safia Ruelas on 02-04-2025 Eosinophils/100 WBC (Bld) 2.3 % 0-5 [facility] Erythrocyte distribution wid th ratioOrdered By: Safia Ruelas on 02-04-2025 Erythrocyte distribution width (RBC) [Ratio] 14.5 % 11.6-14.6 [facility] Erythrocyte distribution wid th standard deviationOrdered By: sherry Ruelas on 02-04-2025 Erythrocyte distribution width (RBC) [Ratio] 47.8 fl High 35.1-43.9 [facility] Glomerular filtration rate ( GFR) estimation/1.73 sq m using serum, plasma, or whole bOrdered By: Safia Ruelas on 02-04-2025 GFR/1.73 sq M.predicted among non-blacks MDRD (S/P/Bld) [Vol rate/Area] 85 mL/min/{1.73_m2} >60 [facility] Hematocrit Auto (Bld) [Volum e fraction]Ordered By: Safia Westonmelanie on 02-04-2025 Hematocrit (Bld) [Volume fraction] 38.3 % 37-47 [facility] Hemoglobin measurementOrdere d By: Safia Ruelas on 02-04-2025 Hemoglobin (Bld) [Mass/Vol] 12.4 g/dL 12.0-15.0 [facility] Immature granulocytes/100 WB C Auto (Bld)Ordered By: jean mariejosé antonio Cheoquyen on 02-04-2025 Immature granulocytes/100 WBC (Bld) 0.400 % 0.0-0.9 [facility] MCV (mean corpuscular volume ) determinationOrdered By: Balbirjean marieatlantaskye Cheobonimelanei on 02-04-2025 MCV (RBC) [Entitic vol] 90.3 fL 81-99 [facility] Mean corpuscular hemoglobin (MCH) determinationOrdered By: sherry Ruelas on 02-04-2025 MCH (RBC) [Entitic mass] 29.2 pg 27.0-32.0 [facility] Monocyte percentageOrdered B y: Safia Ruelas on 02-04-2025 Monocytes/100 WBC (Bld) 7.9 % 0-10 [facility] Neutrophil percentageOrdered By: jean marieatlantaskye Ruelas on 02-04-2025 Neutrophils/100 WBC (Bld) 52.6 % 47-70 [facility] Platelet countOrdered By: Balbir Ruelas on 02-04-2025 Platelets (Bld) [#/Vol] 278 10*3/uL 150-450 [facility] Potassium measurement (mass/ volume)Ordered By: Safia Ruelas on 02-04-2025 Potassium (Unsp spec) [Mass/Vol] 3.4 mmol/L 3.3-5.1 [facility] RBC Auto (Bld) [#/Vol]Ordere d By: Safia Ruelas on 02-04-2025 RBC (Bld) [#/Vol] 4.24 10*6/uL 4.2-5.4 [facility] Serum creatinine measurement (mass/volume)Ordered By: Safia Ruelas on 02-04-2025 Creatinine [Mass/Vol] 0.71 mg/dL 0.70-1.20 [facility] Serum glucose measurement (m ass/volume)Ordered By: Safia Griderbonimelanie on 02-04-2025 Glucose [Mass/Vol] 141 mg/dL High 70-99 [facility] Serum or plasma calcium dayna urement (mass/volume)Ordered By: Safia Ruelas on 02-04-2025 Calcium [Mass/Vol] 9.0 mg/dL 7.6-11.0 [facility] Serum or plasma urea nitroge n measurement (mass/volume)Ordered By: Safia Griderbonimelanie on 02-04-2025 Urea nitrogen [Mass/Vol] 15 mg/dL 4-19 [facility] Sodium levelOrdered By: Leonides josé antonio Jessenia on 02-04-2025 Sodium [Moles/Vol] 139 mmol/L 133-145 [facility] White blood cell (WBC) count Ordered By: Safia Griderbonimelanie on 02-04-2025 WBC (Bld) [#/Vol] 8.4 10*3/uL 4.4-11.0 [facility] Absolute lymphocyte countOrd ered By: Safia Ruelas on 01-28-2025 Lymphocytes Auto (Unsp spec) [#/Vol] 3.03 10*3/uL 0.83-4.51 [facility] Anion gap in Serum or Plasma Ordered By: Safia Ruelas on 01-28-2025 Anion gap [Moles/Vol] 12 mmol/L 5-15 [facility] Automated lymphocyte count a s percentage of total leukocytesOrdered By: Safia Ruelas on 01-28-2025 Lymphocytes/100 WBC Auto (Unsp spec) 36.0 % - [facility] BUN/creatinine ratioOrdered By: Safia Griderbonimelanie on 01-28-2025 Urea nitrogen/Creatinine [Mass ratio] 20.0 mg/mg 10-20 [facility] Basophil percentageOrdered B y: Safia Ruelas on 01-28-2025 Basophils/100 WBC (Bld) 0.6 % 0-1 [facility] Carbon dioxide, total [Moles /volume] in Central venous bloodOrdered By: Safia Ruelas on 01-28-2025 CO2 [Moles/Vol] 24.7 mmol/L 21.0-32.0 [facility] Chloride assayOrdered By: Balbir randallskye Ruelas on 01-28-2025 Chloride [Moles/Vol] 103 mmol/L 98-108 [facility] Eosinophil percentageOrdered By: sherry Ruelas on 01-28-2025 Eosinophils/100 WBC (Bld) 1.8 % 0-5 [facility] Erythrocyte distribution wid th ratioOrdered By: jean marieatlantaskye Ruelas on 01-28-2025 Erythrocyte distribution width (RBC) [Ratio] 14.6 % 11.6-14.6 [facility] Erythrocyte distribution wid th standard deviationOrdered By: jean marieatlantaksye Ruelas on 01-28-2025 Erythrocyte distribution width (RBC) [Ratio] 48.6 fl High 35.1-43.9 [facility] Glomerular filtration rate ( GFR) estimation/1.73 sq m using serum, plasma, or whole bOrdered By: Safia Ruelas on 01-28-2025 GFR/1.73 sq M.predicted among non-blacks MDRD (S/P/Bld) [Vol rate/Area] 88 mL/min/{1.73_m2} >60 [facility] Hematocrit Auto (Bld) [Volum e fraction]Ordered By: Safia Ruelas on 01-28-2025 Hematocrit (Bld) [Volume fraction] 38.1 % 37-47 [facility] Hemoglobin measurementOrdere d By: sherry Ruelas on 01-28-2025 Hemoglobin (Bld) [Mass/Vol] 12.3 g/dL 12.0-15.0 [facility] Immature granulocytes/100 WB C Auto (Bld)Ordered By: Safia Ruelas on 01-28-2025 Immature granulocytes/100 WBC (Bld) 0.400 % 0.0-0.9 [facility] MCV (mean corpuscular volume ) determinationOrdered By: Safia Ruelas on 01-28-2025 MCV (RBC) [Entitic vol] 90.7 fL 81-99 [facility] Mean corpuscular hemoglobin (MCH) determinationOrdered By: Safia Ruelas on 01-28-2025 MCH (RBC) [Entitic mass] 29.3 pg 27.0-32.0 [facility] Monocyte percentageOrdered B y: Safia Ruelas on 01-28-2025 Monocytes/100 WBC (Bld) 8.2 % 0-10 [facility] Neutrophil percentageOrdered By: Safia Ruelas on 01-28-2025 Neutrophils/100 WBC (Bld) 53.0 % 47-70 [facility] Platelet countOrdered By: Balbir Ruelas on 01-28-2025 Platelets (Bld) [#/Vol] 261 10*3/uL 150-450 [facility] Potassium measurement (mass/ volume)Ordered By: Safia Ruelas on 01-28-2025 Potassium (Unsp spec) [Mass/Vol] 3.4 mmol/L 3.3-5.1 [facility] RBC Auto (Bld) [#/Vol]Ordere d By: Safia Ruelas on 01-28-2025 RBC (Bld) [#/Vol] 4.20 10*6/uL 4.2-5.4 [facility] Serum creatinine measurement (mass/volume)Ordered By: Safia Ruelas on 01-28-2025 Creatinine [Mass/Vol] 0.66 mg/dL Low 0.70-1.20 [facility] Serum glucose measurement (m ass/volume)Ordered By: Safia Ruelas on 01-28-2025 Glucose [Mass/Vol] 130 mg/dL High 70-99 [facility] Serum or plasma calcium dayna urement (mass/volume)Ordered By: Safia Ruelas on 01-28-2025 Calcium [Mass/Vol] 9.0 mg/dL 7.6-11.0 [facility] Serum or plasma urea nitroge n measurement (mass/volume)Ordered By: Safia Ruelas on 01-28-2025 Urea nitrogen [Mass/Vol] 13 mg/dL 4-19 [facility] Sodium levelOrdered By: Leonides josé antonio Jessenia on 01-28-2025 Sodium [Moles/Vol] 140 mmol/L 133-145 [facility] White blood cell (WBC) count Ordered By: Safia Ruelas on 01-28-2025 WBC (Bld) [#/Vol] 8.4 10*3/uL 4.4-11.0 [facility] Absolute lymphocyte countOrd ered By: Safia Ruelas on 01-21-2025 Lymphocytes Auto (Unsp spec) [#/Vol] 3.26 10*3/uL 0.83-4.51 [facility] Anion gap in Serum or Plasma Ordered By: Safia Ruelas on 01-21-2025 Anion gap [Moles/Vol] 13 mmol/L 5-15 [facility] Automated lymphocyte count a s percentage of total leukocytesOrdered By: Safia Ruelas on 01-21-2025 Lymphocytes/100 WBC Auto (Unsp spec) 38.3 % 19-41 [facility] BUN/creatinine ratioOrdered By: Safia Ruelas on 01-21-2025 Urea nitrogen/Creatinine [Mass ratio] 20.0 mg/mg 10-20 [facility] Basophil percentageOrdered B y: Safia Ruelas on 01-21-2025 Basophils/100 WBC (Bld) 0.6 % 0-1 [facility] Carbon dioxide, total [Moles /volume] in Central venous bloodOrdered By: Safia Ruelas on 01-21-2025 CO2 [Moles/Vol] 22.3 mmol/L 21.0-32.0 [facility] Chloride assayOrdered By: Balbir Ruelas on 01-21-2025 Chloride [Moles/Vol] 102 mmol/L 98-108 [facility] Eosinophil percentageOrdered By: Safia Ruelas on 01-21-2025 Eosinophils/100 WBC (Bld) 2.1 % 0-5 [facility] Erythrocyte distribution wid th ratioOrdered By: Safia Ruelas on 01-21-2025 Erythrocyte distribution width (RBC) [Ratio] 14.4 % 11.6-14.6 [facility] Erythrocyte distribution wid th standard deviationOrdered By: Safia Ruelas on 01-21-2025 Erythrocyte distribution width (RBC) [Ratio] 47.1 fl High 35.1-43.9 [facility] Glomerular filtration rate ( GFR) estimation/1.73 sq m using serum, plasma, or whole bOrdered By: Safia Ruelas on 01-21-2025 GFR/1.73 sq M.predicted among non-blacks MDRD (S/P/Bld) [Vol rate/Area] 86 mL/min/{1.73_m2} >60 [facility] Hematocrit Auto (Bld) [Volum e fraction]Ordered By: Safia Ruelas on 01-21-2025 Hematocrit (Bld) [Volume fraction] 37.8 % 37-47 [facility] Hemoglobin measurementOrdere d By: Safia Ruelas on 01-21-2025 Hemoglobin (Bld) [Mass/Vol] 12.6 g/dL 12.0-15.0 [facility] Immature granulocytes/100 WB C Auto (Bld)Ordered By: Safia Ruelas 01-21-2025 Immature granulocytes/100 WBC (Bld) 0.400 % 0.0-0.9 [facility] MCV (mean corpuscular volume ) determinationOrdered By: Safia Ruelas 01-21-2025 MCV (RBC) [Entitic vol] 89.6 fL 81-99 [facility] Mean corpuscular hemoglobin (MCH) determinationOrdered By: Safia Ruelas 01-21-2025 MCH (RBC) [Entitic mass] 29.9 pg 27.0-32.0 [facility] Monocyte percentageOrdered B y: Safia Ruelas on 01-21-2025 Monocytes/100 WBC (Bld) 6.9 % 0-10 [facility] Neutrophil percentageOrdered By: Safia Ruelas 01-21-2025 Neutrophils/100 WBC (Bld) 51.7 % 47-70 [facility] Platelet countOrdered By: Balbir Ruelas on 01-21-2025 Platelets (Bld) [#/Vol] 280 10*3/uL 150-450 [facility] Potassium measurement (mass/ volume)Ordered By: Safia Ruelas on 01-21-2025 Potassium (Unsp spec) [Mass/Vol] 3.6 mmol/L 3.3-5.1 [facility] RBC Auto (Bld) [#/Vol]Ordere d By: Safia Ruelas on 01-21-2025 RBC (Bld) [#/Vol] 4.22 10*6/uL 4.2-5.4 [facility] Serum creatinine measurement (mass/volume)Ordered By: Safia Ruelas on 01-21-2025 Creatinine [Mass/Vol] 0.71 mg/dL 0.70-1.20 [facility] Serum glucose measurement (m ass/volume)Ordered By: Safia Ruelas on 01-21-2025 Glucose [Mass/Vol] 126 mg/dL High 70-99 [facility] Serum or plasma calcium dayna urement (mass/volume)Ordered By: Safia Ruelas on 01-21-2025 Calcium [Mass/Vol] 9.0 mg/dL 7.6-11.0 [facility] Serum or plasma urea nitroge n measurement (mass/volume)Ordered By: Safia Ruelas on 01-21-2025 Urea nitrogen [Mass/Vol] 14 mg/dL 4-19 [facility] Sodium levelOrdered By: Leonides jiméneztadmelanie Ruelas on 01-21-2025 Sodium [Moles/Vol] 137 mmol/L 133-145 [facility] White blood cell (WBC) count Ordered By: Safia Ruelas on 01-21-2025 WBC (Bld) [#/Vol] 8.5 10*3/uL 4.4-11.0 [facility] Absolute lymphocyte countOrd ered By: Safia Ruelas on 01-14-2025 Lymphocytes Auto (Unsp spec) [#/Vol] 2.54 10*3/uL 0.83-4.51 [facility] Anion gap in Serum or Plasma Ordered By: Safia Ruelas on 01-14-2025 Anion gap [Moles/Vol] 13 mmol/L 5-15 [facility] Automated lymphocyte count a s percentage of total leukocytesOrdered By: Safia Ruelas on 01-14-2025 Lymphocytes/100 WBC Auto (Unsp spec) 30.6 % 19-41 [facility] BUN/creatinine ratioOrdered By: Safia Ruelas on 01-14-2025 Urea nitrogen/Creatinine [Mass ratio] 16.0 mg/mg 10-20 [facility] Basophil percentageOrdered B y: Safia Ruelas on 01-14-2025 Basophils/100 WBC (Bld) 0.6 % 0-1 [facility] Carbon dioxide, total [Moles /volume] in Central venous bloodOrdered By: Safia Ruelas on 01-14-2025 CO2 [Moles/Vol] 22.8 mmol/L 21.0-32.0 [facility] Chloride assayOrdered By: Balbir Ruelas on 01-14-2025 Chloride [Moles/Vol] 104 mmol/L 98-108 [facility] Eosinophil percentageOrdered By: Safia Ruelas on 01-14-2025 Eosinophils/100 WBC (Bld) 2.2 % 0-5 [facility] Erythrocyte distribution wid th ratioOrdered By: Safia Ruelas on 01-14-2025 Erythrocyte distribution width (RBC) [Ratio] 14.6 % 11.6-14.6 [facility] Erythrocyte distribution wid th standard deviationOrdered By: Safia Ruelas on 01-14-2025 Erythrocyte distribution width (RBC) [Ratio] 48.7 fl High 35.1-43.9 [facility] Glomerular filtration rate ( GFR) estimation/1.73 sq m using serum, plasma, or whole bOrdered By: Safia Ruelas on 01-14-2025 GFR/1.73 sq M.predicted among non-blacks MDRD (S/P/Bld) [Vol rate/Area] 84 mL/min/{1.73_m2} >60 [facility] Hematocrit Auto (Bld) [Volum e fraction]Ordered By: Safia Ruelas on 01-14-2025 Hematocrit (Bld) [Volume fraction] 37.6 % 37-47 [facility] Hemoglobin measurementOrdere d By: Balbirjean mariejosé antonio Cheobonimelanie on 01-14-2025 Hemoglobin (Bld) [Mass/Vol] 12.1 g/dL 12.0-15.0 [facility] Immature granulocytes/100 WB C Auto (Bld)Ordered By: Safia Ruelas on 01-14-2025 Immature granulocytes/100 WBC (Bld) 0.500 % 0.0-0.9 [facility] MCV (mean corpuscular volume ) determinationOrdered By: Safia Ruelas on 01-14-2025 MCV (RBC) [Entitic vol] 90.8 fL 81-99 [facility] Mean corpuscular hemoglobin (MCH) determinationOrdered By: jean marieatlantaskye Ruelas on 01-14-2025 MCH (RBC) [Entitic mass] 29.2 pg 27.0-32.0 [facility] Monocyte percentageOrdered B y: Safia Ruelas on 01-14-2025 Monocytes/100 WBC (Bld) 7.8 % 0-10 [facility] Neutrophil percentageOrdered By: jean marieatlantaskye Ruelas on 01-14-2025 Neutrophils/100 WBC (Bld) 58.3 % 47-70 [facility] Platelet countOrdered By: Balbir randallskye Ruelas on 01-14-2025 Platelets (Bld) [#/Vol] 284 10*3/uL 150-450 [facility] Potassium measurement (mass/ volume)Ordered By: Safia Ruelas on 01-14-2025 Potassium (Unsp spec) [Mass/Vol] 3.5 mmol/L 3.3-5.1 [facility] RBC Auto (Bld) [#/Vol]Ordere d By: Safia Ruelas on 01-14-2025 RBC (Bld) [#/Vol] 4.14 10*6/uL Low 4.2-5.4 [facility] Serum creatinine measurement (mass/volume)Ordered By: Safia Ruelas on 01-14-2025 Creatinine [Mass/Vol] 0.73 mg/dL 0.70-1.20 [facility] Serum glucose measurement (m ass/volume)Ordered By: Safia Ruelas on 01-14-2025 Glucose [Mass/Vol] 137 mg/dL High 70-99 [facility] Serum or plasma calcium dayna urement (mass/volume)Ordered By: Safia Ruelas on 01-14-2025 Calcium [Mass/Vol] 8.8 mg/dL 7.6-11.0 [facility] Serum or plasma urea nitroge n measurement (mass/volume)Ordered By: Safia Ruelas on 01-14-2025 Urea nitrogen [Mass/Vol] 12 mg/dL 4-19 [facility] Sodium levelOrdered By: Leonides jiménezradha Jessenia on 01-14-2025 Sodium [Moles/Vol] 139 mmol/L 133-145 [facility] TSH DL <= 0.005 mIU/L QnOrde red By: Safia Ruelas on 01-14-2025 TSH Qn 1.730 uIU/mL 0.300-4.200 [facility] White blood cell (WBC) count Ordered By: Safia Ruelas on 01-14-2025 WBC (Bld) [#/Vol] 8.3 10*3/uL 4.4-11.0 [facility] Absolute lymphocyte countOrd ered By: Safia Ruelas on 01-07-2025 Lymphocytes Auto (Unsp spec) [#/Vol] 2.90 10*3/uL 0.83-4.51 [facility] Anion gap in Serum or Plasma Ordered By: Safia Ruelas on 01-07-2025 Anion gap [Moles/Vol] 12 mmol/L 5-15 [facility] Automated lymphocyte count a s percentage of total leukocytesOrdered By: Safia Ruelas on 01-07-2025 Lymphocytes/100 WBC Auto (Unsp spec) 36.3 % 19-41 [facility] BUN/creatinine ratioOrdered By: Safia Ruelas on 01-07-2025 Urea nitrogen/Creatinine [Mass ratio] 15.4 mg/mg 10-20 [facility] Basophil percentageOrdered B y: Safia Ruelas on 01-07-2025 Basophils/100 WBC (Bld) 0.6 % 0-1 [facility] Carbon dioxide, total [Moles /volume] in Central venous bloodOrdered By: Safia Ruelas on 01-07-2025 CO2 [Moles/Vol] 23.2 mmol/L 21.0-32.0 [facility] Chloride assayOrdered By: Balbir jean mariejosé antonio Ruelas on 01-07-2025 Chloride [Moles/Vol] 104 mmol/L 98-108 [facility] Eosinophil percentageOrdered By: jean marieatlantaskye Griderbonimelanie on 01-07-2025 Eosinophils/100 WBC (Bld) 2.3 % 0-5 [facility] Erythrocyte distribution wid th ratioOrdered By: jean marieatlantaskye Ruelas on 01-07-2025 Erythrocyte distribution width (RBC) [Ratio] 14.6 % 11.6-14.6 [facility] Erythrocyte distribution wid th standard deviationOrdered By: Leonidesatlantaskye Ruelas on 01-07-2025 Erythrocyte distribution width (RBC) [Ratio] 48.5 fl High 35.1-43.9 [facility] Glomerular filtration rate ( GFR) estimation/1.73 sq m using serum, plasma, or whole bOrdered By: Safia Ruelas on 01-07-2025 GFR/1.73 sq M.predicted among non-blacks MDRD (S/P/Bld) [Vol rate/Area] 86 mL/min/{1.73_m2} >60 [facility] Hematocrit Auto (Bld) [Volum e fraction]Ordered By: Safia Ruelas on 01-07-2025 Hematocrit (Bld) [Volume fraction] 36.6 % Low 37-47 [facility] Hemoglobin measurementOrdere d By: Safia Ruelas on 01-07-2025 Hemoglobin (Bld) [Mass/Vol] 11.9 g/dL Low 12.0-15.0 [facility] Immature granulocytes/100 WB C Auto (Bld)Ordered By: Safia Ruelas on 01-07-2025 Immature granulocytes/100 WBC (Bld) 0.300 % 0.0-0.9 [facility] MCV (mean corpuscular volume ) determinationOrdered By: Balbirjean mariedesireeskye Griderbonimelanie on 01-07-2025 MCV (RBC) [Entitic vol] 90.6 fL 81-99 [facility] Mean corpuscular hemoglobin (MCH) determinationOrdered By: Safia Cheoquyen on 01-07-2025 MCH (RBC) [Entitic mass] 29.5 pg 27.0-32.0 [facility] Monocyte percentageOrdered B y: [place] Griderbonimelanie on 01-07-2025 Monocytes/100 WBC (Bld) 7.9 % 0-10 [facility] Neutrophil percentageOrdered By: Safia Cheoquyen on 01-07-2025 Neutrophils/100 WBC (Bld) 52.6 % 47-70 [facility] Platelet countOrdered By: Balbir sherry Cheoquyen on 01-07-2025 Platelets (Bld) [#/Vol] 263 10*3/uL 150-450 [facility] Potassium measurement (mass/ volume)Ordered By: Safia Griderbonimelanie on 01-07-2025 Potassium (Unsp spec) [Mass/Vol] 3.5 mmol/L 3.3-5.1 [facility] RBC Auto (Bld) [#/Vol]Ordere d By: Balbirjean mariejosé antonio Cheoquyen on 01-07-2025 RBC (Bld) [#/Vol] 4.04 10*6/uL Low 4.2-5.4 [facility] Serum creatinine measurement (mass/volume)Ordered By: Safia Ruelas on 01-07-2025 Creatinine [Mass/Vol] 0.71 mg/dL 0.70-1.20 [facility] Serum glucose measurement (m ass/volume)Ordered By: Safia Ruelas on 01-07-2025 Glucose [Mass/Vol] 139 mg/dL High 70-99 [facility] Serum or plasma calcium dayna urement (mass/volume)Ordered By: Safia Ruelas on 01-07-2025 Calcium [Mass/Vol] 8.5 mg/dL 7.6-11.0 [facility] Serum or plasma urea nitroge n measurement (mass/volume)Ordered By: Balbirjean mariedesireeskye Griderbonimelanie on 01-07-2025 Urea nitrogen [Mass/Vol] 11 mg/dL 4- [facility] Sodium levelOrdered By: Leonides Ruelas on 01-07-2025 Sodium [Moles/Vol] 139 mmol/L 133-145 [facility] White blood cell (WBC) count Ordered By: Balbirjean mariejosé antonio Cheoquyen on 01-07-2025 WBC (Bld) [#/Vol] 8.0 10*3/uL 4.4-11.0 [facility] Absolute lymphocyte countOrd ered By: Balbirjean mariejosé antonio Cheoquyen on 12-31-2024 Lymphocytes Auto (Unsp spec) [#/Vol] 2.27 10*3/uL 0.83-4.51 [facility] Anion gap in Serum or Plasma Ordered By: Leonidesjosé antonio Cheobonimelanie on 12-31-2024 Anion gap [Moles/Vol] 14 mmol/L 5-15 [facility] Automated lymphocyte count a s percentage of total leukocytesOrdered By: Safia Ruelas on 12-31-2024 Lymphocytes/100 WBC Auto (Unsp spec) 32.9 % 19-41 [facility] BUN/creatinine ratioOrdered By: Leonidesdesireeskye Griderbonimelanie on 12-31-2024 Urea nitrogen/Creatinine [Mass ratio] 15.0 mg/mg 10-20 [facility] Basophil percentageOrdered B y: Safia Cheobonimelanie on 12-31-2024 Basophils/100 WBC (Bld) 0.6 % 0-1 [facility] Carbon dioxide, total [Moles /volume] in Central venous bloodOrdered By: Blabirjean mariejosé antonio Cheobonimelanie on 12-31-2024 CO2 [Moles/Vol] 22.1 mmol/L 21.0-32.0 [facility] Chloride assayOrdered By: Balbir jean mariejosé antonio Griderbonimelanie on 12-31-2024 Chloride [Moles/Vol] 103 mmol/L 98-108 [facility] Eosinophil percentageOrdered By: Leonidesdesireeskye Griderbonimelanie on 12-31-2024 Eosinophils/100 WBC (Bld) 3.2 % 0-5 [facility] Erythrocyte distribution wid th ratioOrdered By: Safia Ruelas on 12-31-2024 Erythrocyte distribution width (RBC) [Ratio] 14.6 % 11.6-14.6 [facility] Erythrocyte distribution wid th standard deviationOrdered By: Safia Ruelas on 12-31-2024 Erythrocyte distribution width (RBC) [Ratio] 48.9 fl High 35.1-43.9 [facility] Glomerular filtration rate ( GFR) estimation/1.73 sq m using serum, plasma, or whole bOrdered By: Safia Ruelas on 12-31-2024 GFR/1.73 sq M.predicted among non-blacks MDRD (S/P/Bld) [Vol rate/Area] 88 mL/min/{1.73_m2} >60 [facility] Hematocrit Auto (Bld) [Volum e fraction]Ordered By: Leonidesatlantaskye Ruelas on 12-31-2024 Hematocrit (Bld) [Volume fraction] 36.8 % Low 37-47 [facility] Hemoglobin A1c percentageOrd ered By: Safia Ruelas on 12-31-2024 HbA1c (Bld) [Mass fraction] 6.5 % High <5.7 [facility] Hemoglobin measurementOrdere d By: Safia Ruelas on 12-31-2024 Hemoglobin (Bld) [Mass/Vol] 11.8 g/dL Low 12.0-15.0 [facility] Immature granulocytes/100 WB C Auto (Bld)Ordered By: Safia Ruelas on 12-31-2024 Immature granulocytes/100 WBC (Bld) 0.300 % 0.0-0.9 [facility] MCV (mean corpuscular volume ) determinationOrdered By: Safia Ruelas on 12-31-2024 MCV (RBC) [Entitic vol] 91.3 fL 81-99 [facility] Mean corpuscular hemoglobin (MCH) determinationOrdered By: Safia Ruelas on 12-31-2024 MCH (RBC) [Entitic mass] 29.3 pg 27.0-32.0 [facility] Monocyte percentageOrdered B y: Safia Ruelas on 12-31-2024 Monocytes/100 WBC (Bld) 9.4 % 0-10 [facility] Neutrophil percentageOrdered By: Safia Ruelas on 12-31-2024 Neutrophils/100 WBC (Bld) 53.6 % 47-70 [facility] Platelet countOrdered By: Balbir Ruelas on 12-31-2024 Platelets (Bld) [#/Vol] 232 10*3/uL 150-450 [facility] Potassium measurement (mass/ volume)Ordered By: Safia Ruelas on 12-31-2024 Potassium (Unsp spec) [Mass/Vol] 3.5 mmol/L 3.3-5.1 [facility] RBC Auto (Bld) [#/Vol]Ordere d By: Safia Ruelas on 12-31-2024 RBC (Bld) [#/Vol] 4.03 10*6/uL Low 4.2-5.4 [facility] Serum creatinine measurement (mass/volume)Ordered By: Safia Ruelas on 12-31-2024 Creatinine [Mass/Vol] 0.70 mg/dL 0.70-1.20 [facility] Serum glucose measurement (m ass/volume)Ordered By: Safia Ruelas on 12-31-2024 Glucose [Mass/Vol] 142 mg/dL High 70-99 [facility] Serum or plasma calcium dayna urement (mass/volume)Ordered By: Safia Ruelas on 12-31-2024 Calcium [Mass/Vol] 8.4 mg/dL 7.6-11.0 [facility] Serum or plasma urea nitroge n measurement (mass/volume)Ordered By: Safia Ruelas on 12-31-2024 Urea nitrogen [Mass/Vol] 10 mg/dL 4-19 [facility] Sodium levelOrdered By: Leonides Ruelas on 12-31-2024 Sodium [Moles/Vol] 139 mmol/L 133-145 [facility] White blood cell (WBC) count Ordered By: Safia Ruelas on 12-31-2024 WBC (Bld) [#/Vol] 6.9 10*3/uL 4.4-11.0 [facility] Absolute lymphocyte countOrd ered By: Safia Ruelas on 12-24-2024 Lymphocytes Auto (Unsp spec) [#/Vol] 2.54 10*3/uL 0.83-4.51 [facility] Anion gap in Serum or Plasma Ordered By: Safia Ruelas on 12-24-2024 Anion gap [Moles/Vol] 14 mmol/L 5-15 [facility] Automated lymphocyte count a s percentage of total leukocytesOrdered By: Safia Griderbonimelanie on 12-24-2024 Lymphocytes/100 WBC Auto (Unsp spec) 28.0 % 19-41 [facility] BUN/creatinine ratioOrdered By: Safia Griderbonimelanie on 12-24-2024 Urea nitrogen/Creatinine [Mass ratio] 18.4 mg/mg 10-20 [facility] Basophil percentageOrdered B y: Safia Ruelas on 12-24-2024 Basophils/100 WBC (Bld) 0.8 % 0-1 [facility] Carbon dioxide, total [Moles /volume] in Central venous bloodOrdered By: Safia Ruelas on 12-24-2024 CO2 [Moles/Vol] 22.1 mmol/L 21.0-32.0 [facility] Chloride assayOrdered By: Balbir jean mariejosé antonio Ruelas on 12-24-2024 Chloride [Moles/Vol] 101 mmol/L 98-108 [facility] Eosinophil percentageOrdered By: Safia Ruelas on 12-24-2024 Eosinophils/100 WBC (Bld) 2.6 % 0-5 [facility] Erythrocyte distribution wid th ratioOrdered By: Safia Ruelas on 12-24-2024 Erythrocyte distribution width (RBC) [Ratio] 14.4 % 11.6-14.6 [facility] Erythrocyte distribution wid th standard deviationOrdered By: Safia Griderbonimelanie on 12-24-2024 Erythrocyte distribution width (RBC) [Ratio] 48.8 fl High 35.1-43.9 [facility] Glomerular filtration rate ( GFR) estimation/1.73 sq m using serum, plasma, or whole bOrdered By: Safia Ruelas on 12-24-2024 GFR/1.73 sq M.predicted among non-blacks MDRD (S/P/Bld) [Vol rate/Area] 83 mL/min/{1.73_m2} >60 [facility] Hematocrit Auto (Bld) [Volum e fraction]Ordered By: Safia Ruelas on 12-24-2024 Hematocrit (Bld) [Volume fraction] 37.9 % 37-47 [facility] Hemoglobin measurementOrdere d By: Leonidesjosé antonio Cheobonimelanie on 12-24-2024 Hemoglobin (Bld) [Mass/Vol] 12.2 g/dL 12.0-15.0 [facility] Immature granulocytes/100 WB C Auto (Bld)Ordered By: Safia Griderbonimelanie on 12-24-2024 Immature granulocytes/100 WBC (Bld) 0.400 % 0.0-0.9 [facility] MCV (mean corpuscular volume ) determinationOrdered By: Safia Griderbonimelanie on 12-24-2024 MCV (RBC) [Entitic vol] 92.2 fL 81-99 [facility] Mean corpuscular hemoglobin (MCH) determinationOrdered By: Safia Griderbonimelanie on 12-24-2024 MCH (RBC) [Entitic mass] 29.7 pg 27.0-32.0 [facility] Monocyte percentageOrdered B y: Balbirjean mariedesireeskye Griderbonimelanie on 12-24-2024 Monocytes/100 WBC (Bld) 8.7 % 0-10 [facility] Neutrophil percentageOrdered By: Leonidesatlantaskye Griderbonimelanie on 12-24-2024 Neutrophils/100 WBC (Bld) 59.5 % 47-70 [facility] Platelet countOrdered By: Balbir sherry Cheobonimelanie on 12-24-2024 Platelets (Bld) [#/Vol] 256 10*3/uL 150-450 [facility] Potassium measurement (mass/ volume)Ordered By: Balbirjean mariedesireeskye Gridrebonimelanie on 12-24-2024 Potassium (Unsp spec) [Mass/Vol] 3.4 mmol/L 3.3-5.1 [facility] RBC Auto (Bld) [#/Vol]Ordere d By: Leonidesjosé antonio Cheobonimelanie on 12-24-2024 RBC (Bld) [#/Vol] 4.11 10*6/uL Low 4.2-5.4 [facility] Serum creatinine measurement (mass/volume)Ordered By: Safia Ruelas on 12-24-2024 Creatinine [Mass/Vol] 0.73 mg/dL 0.70-1.20 [facility] Serum glucose measurement (m ass/volume)Ordered By: Safia Griderbonimelanie on 12-24-2024 Glucose [Mass/Vol] 142 mg/dL High 70-99 [facility] Serum or plasma calcium dayna urement (mass/volume)Ordered By: Safia Ruelas on 12-24-2024 Calcium [Mass/Vol] 9.1 mg/dL 7.6-11.0 [facility] Serum or plasma urea nitroge n measurement (mass/volume)Ordered By: Safia Ruelas on 12-24-2024 Urea nitrogen [Mass/Vol] 13 mg/dL 4-19 [facility] Sodium levelOrdered By: Leonides josé antonio Jessenia on 12-24-2024 Sodium [Moles/Vol] 137 mmol/L 133-145 [facility] White blood cell (WBC) count Ordered By: Safia Griderbonimelanie on 12-24-2024 WBC (Bld) [#/Vol] 9.1 10*3/uL 4.4-11.0 [facility] Absolute lymphocyte countOrd ered By: Safia Ruelas on 12-17-2024 Lymphocytes Auto (Unsp spec) [#/Vol] 2.94 10*3/uL 0.83-4.51 [facility] Anion gap in Serum or Plasma Ordered By: Safia Ruelas on 12-17-2024 Anion gap [Moles/Vol] 15 mmol/L 5-15 [facility] Automated lymphocyte count a s percentage of total leukocytesOrdered By: Safia Ruelas on 12-17-2024 Lymphocytes/100 WBC Auto (Unsp spec) 30.5 % 19-41 [facility] BUN/creatinine ratioOrdered By: Safia Ruelas on 12-17-2024 Urea nitrogen/Creatinine [Mass ratio] 23.4 mg/mg High 10-20 [facility] Basophil percentageOrdered B y: Safia Ruelas on 12-17-2024 Basophils/100 WBC (Bld) 0.7 % 0-1 [facility] Carbon dioxide, total [Moles /volume] in Central venous bloodOrdered By: Safia Ruelas on 12-17-2024 CO2 [Moles/Vol] 22.1 mmol/L 21.0-32.0 [facility] Chloride assayOrdered By: Balbir Ruelas on 12-17-2024 Chloride [Moles/Vol] 102 mmol/L 98-108 [facility] Eosinophil percentageOrdered By: jean marieatlantaskye Ruelas on 12-17-2024 Eosinophils/100 WBC (Bld) 2.3 % 0-5 [facility] Erythrocyte distribution wid th ratioOrdered By: jean marieatlantaskye Ruelas on 12-17-2024 Erythrocyte distribution width (RBC) [Ratio] 14.1 % 11.6-14.6 [facility] Erythrocyte distribution wid th standard deviationOrdered By: Leonidesatlantaskye Ruelas on 12-17-2024 Erythrocyte distribution width (RBC) [Ratio] 47.3 fl High 35.1-43.9 [facility] Glomerular filtration rate ( GFR) estimation/1.73 sq m using serum, plasma, or whole bOrdered By: Safia Ruelas on 12-17-2024 GFR/1.73 sq M.predicted among non-blacks MDRD (S/P/Bld) [Vol rate/Area] 77 mL/min/{1.73_m2} >60 [facility] Hematocrit Auto (Bld) [Volum e fraction]Ordered By: Safia Ruelas on 12-17-2024 Hematocrit (Bld) [Volume fraction] 40.2 % 37-47 [facility] Hemoglobin measurementOrdere d By: Safia Ruelas on 12-17-2024 Hemoglobin (Bld) [Mass/Vol] 12.7 g/dL 12.0-15.0 [facility] Immature granulocytes/100 WB C Auto (Bld)Ordered By: Safia Ruelas on 12-17-2024 Immature granulocytes/100 WBC (Bld) 0.400 % 0.0-0.9 [facility] MCV (mean corpuscular volume ) determinationOrdered By: Safia Ruelas on 12-17-2024 MCV (RBC) [Entitic vol] 92.2 fL 81-99 [facility] Mean corpuscular hemoglobin (MCH) determinationOrdered By: Safia Ruelas on 12-17-2024 MCH (RBC) [Entitic mass] 29.1 pg 27.0-32.0 [facility] Monocyte percentageOrdered B y: Safia Ruelas on 12-17-2024 Monocytes/100 WBC (Bld) 8.6 % 0-10 [facility] Neutrophil percentageOrdered By: Safia Ruelas on 12-17-2024 Neutrophils/100 WBC (Bld) 57.5 % 47-70 [facility] Platelet countOrdered By: Balbir Ruelas on 12-17-2024 Platelets (Bld) [#/Vol] 287 10*3/uL 150-450 [facility] Potassium measurement (mass/ volume)Ordered By: Safia Ruelas on 12-17-2024 Potassium (Unsp spec) [Mass/Vol] 3.5 mmol/L 3.3-5.1 [facility] RBC Auto (Bld) [#/Vol]Ordere d By: Safia Ruelas on 12-17-2024 RBC (Bld) [#/Vol] 4.36 10*6/uL 4.2-5.4 [facility] Serum creatinine measurement (mass/volume)Ordered By: Safia Ruelas on 12-17-2024 Creatinine [Mass/Vol] 0.78 mg/dL 0.70-1.20 [facility] Serum glucose measurement (m ass/volume)Ordered By: Safia Ruelas on 12-17-2024 Glucose [Mass/Vol] 125 mg/dL High 70-99 [facility] Serum or plasma calcium dayna urement (mass/volume)Ordered By: Safia Ruelas on 12-17-2024 Calcium [Mass/Vol] 9.2 mg/dL 7.6-11.0 [facility] Serum or plasma urea nitroge n measurement (mass/volume)Ordered By: Safia Ruelas on 12-17-2024 Urea nitrogen [Mass/Vol] 18 mg/dL 4-19 [facility] Sodium levelOrdered By: Leonides josé antonio Jessenia on 12-17-2024 Sodium [Moles/Vol] 139 mmol/L 133-145 [facility] White blood cell (WBC) count Ordered By: Safia Ruelas on 12-17-2024 WBC (Bld) [#/Vol] 9.6 10*3/uL 4.4-11.0 [facility] Absolute lymphocyte countOrd ered By: Safia Ruelas on 12-10-2024 Lymphocytes Auto (Unsp spec) [#/Vol] 2.59 10*3/uL 0.83-4.51 [facility] Anion gap in Serum or Plasma Ordered By: Safia Ruelas on 12-10-2024 Anion gap [Moles/Vol] 15 mmol/L 5-15 [facility] Automated lymphocyte count a s percentage of total leukocytesOrdered By: Safia Ruelas on 12-10-2024 Lymphocytes/100 WBC Auto (Unsp spec) 30.2 % 19-41 [facility] BUN/creatinine ratioOrdered By: Safia Ruelas on 12-10-2024 Urea nitrogen/Creatinine [Mass ratio] 25.6 mg/mg High 10-20 [facility] Basophil percentageOrdered B y: Safia Ruelas on 12-10-2024 Basophils/100 WBC (Bld) 0.9 % 0-1 [facility] Carbon dioxide, total [Moles /volume] in Central venous bloodOrdered By: Safia Ruelas on 12-10-2024 CO2 [Moles/Vol] 21.7 mmol/L 21.0-32.0 [facility] Chloride assayOrdered By: Balbir Ruelas on 12-10-2024 Chloride [Moles/Vol] 101 mmol/L 98-108 [facility] Eosinophil percentageOrdered By: Safia Ruelas on 12-10-2024 Eosinophils/100 WBC (Bld) 1.9 % 0-5 [facility] Erythrocyte distribution wid th ratioOrdered By: Safia Ruelas on 12-10-2024 Erythrocyte distribution width (RBC) [Ratio] 13.7 % 11.6-14.6 [facility] Erythrocyte distribution wid th standard deviationOrdered By: Safia Ruelas on 12-10-2024 Erythrocyte distribution width (RBC) [Ratio] 46.8 fl High 35.1-43.9 [facility] Glomerular filtration rate ( GFR) estimation/1.73 sq m using serum, plasma, or whole bOrdered By: Safia Ruelas on 12-10-2024 GFR/1.73 sq M.predicted among non-blacks MDRD (S/P/Bld) [Vol rate/Area] 72 mL/min/{1.73_m2} >60 [facility] Hematocrit Auto (Bld) [Volum e fraction]Ordered By: Leonidesatlantaskye Ruelas on 12-10-2024 Hematocrit (Bld) [Volume fraction] 38.8 % 37-47 [facility] Hemoglobin measurementOrdere d By: Safia Ruelas on 12-10-2024 Hemoglobin (Bld) [Mass/Vol] 12.3 g/dL 12.0-15.0 [facility] Immature granulocytes/100 WB C Auto (Bld)Ordered By: Safia Ruelas on 12-10-2024 Immature granulocytes/100 WBC (Bld) 0.500 % 0.0-0.9 [facility] MCV (mean corpuscular volume ) determinationOrdered By: Safia Ruelas on 12-10-2024 MCV (RBC) [Entitic vol] 93.3 fL 81-99 [facility] Mean corpuscular hemoglobin (MCH) determinationOrdered By: jean marieatlantaskye Ruelas on 12-10-2024 MCH (RBC) [Entitic mass] 29.6 pg 27.0-32.0 [facility] Monocyte percentageOrdered B y: Safia Ruelas on 12-10-2024 Monocytes/100 WBC (Bld) 8.2 % 0-10 [facility] Neutrophil percentageOrdered By: jean marieatlantaskye Ruelas on 12-10-2024 Neutrophils/100 WBC (Bld) 58.3 % 47-70 [facility] Platelet countOrdered By: Balbir Ruelas on 12-10-2024 Platelets (Bld) [#/Vol] 247 10*3/uL 150-450 [facility] Potassium measurement (mass/ volume)Ordered By: Safia Ruelas on 12-10-2024 Potassium (Unsp spec) [Mass/Vol] 3.8 mmol/L 3.3-5.1 [facility] RBC Auto (Bld) [#/Vol]Ordere d By: Safia Ruelas on 12-10-2024 RBC (Bld) [#/Vol] 4.16 10*6/uL Low 4.2-5.4 [facility] Serum creatinine measurement (mass/volume)Ordered By: Safia Ruelas on 12-10-2024 Creatinine [Mass/Vol] 0.82 mg/dL 0.70-1.20 [facility] Serum glucose measurement (m ass/volume)Ordered By: Safia Cheoquyen on 12-10-2024 Glucose [Mass/Vol] 149 mg/dL High 70-99 [facility] Serum or plasma calcium dayna urement (mass/volume)Ordered By: Safia Ruelas on 12-10-2024 Calcium [Mass/Vol] 9.1 mg/dL 7.6-11.0 [facility] Serum or plasma urea nitroge n measurement (mass/volume)Ordered By: Safia Ruelas on 12-10-2024 Urea nitrogen [Mass/Vol] 21 mg/dL High 4-19 [facility] Sodium levelOrdered By: Leonides Ruelas on 12-10-2024 Sodium [Moles/Vol] 137 mmol/L 133-145 [facility] White blood cell (WBC) count Ordered By: Safia Cheoquyen on 12-10-2024 WBC (Bld) [#/Vol] 8.6 10*3/uL 4.4-11.0 [facility] Absolute lymphocyte countOrd ered By: Safia Cheoquyen on 12-03-2024 Lymphocytes Auto (Unsp spec) [#/Vol] 2.81 10*3/uL 0.83-4.51 [facility] Anion gap in Serum or Plasma Ordered By: Safia Ruelas on 12-03-2024 Anion gap [Moles/Vol] 14 mmol/L 5-15 [facility] Automated lymphocyte count a s percentage of total leukocytesOrdered By: Safia Ruelas on 12-03-2024 Lymphocytes/100 WBC Auto (Unsp spec) 28.3 % 19-41 [facility] BUN/creatinine ratioOrdered By: Safia Ruelas on 12-03-2024 Urea nitrogen/Creatinine [Mass ratio] 28.4 mg/mg High 10-20 [facility] Basophil percentageOrdered B y: Safia Ruelas on 12-03-2024 Basophils/100 WBC (Bld) 0.6 % 0-1 [facility] Carbon dioxide, total [Moles /volume] in Central venous bloodOrdered By: Leonidesatlantaskye Ruelas on 12-03-2024 CO2 [Moles/Vol] 23.3 mmol/L 21.0-32.0 [facility] Chloride assayOrdered By: Balbir Ruelas on 12-03-2024 Chloride [Moles/Vol] 102 mmol/L 98-108 [facility] Eosinophil percentageOrdered By: Safia Ruelas on 12-03-2024 Eosinophils/100 WBC (Bld) 1.5 % 0-5 [facility] Erythrocyte distribution wid th ratioOrdered By: Safia Ruelas on 12-03-2024 Erythrocyte distribution width (RBC) [Ratio] 14.1 % 11.6-14.6 [facility] Erythrocyte distribution wid th standard deviationOrdered By: Safia Ruelas on 12-03-2024 Erythrocyte distribution width (RBC) [Ratio] 47.9 fl High 35.1-43.9 [facility] Glomerular filtration rate ( GFR) estimation/1.73 sq m using serum, plasma, or whole bOrdered By: Safia Ruelas on 12-03-2024 GFR/1.73 sq M.predicted among non-blacks MDRD (S/P/Bld) [Vol rate/Area] 65 mL/min/{1.73_m2} >60 [facility] Hematocrit Auto (Bld) [Volum e fraction]Ordered By: Safia Griderbonimelanie on 12-03-2024 Hematocrit (Bld) [Volume fraction] 40.0 % 37-47 [facility] Hemoglobin measurementOrdere d By: Safia Ruelas on 12-03-2024 Hemoglobin (Bld) [Mass/Vol] 12.9 g/dL 12.0-15.0 [facility] Immature granulocytes/100 WB C Auto (Bld)Ordered By: Balbirjean mariejosé antonio Cheobonimelanie on 12-03-2024 Immature granulocytes/100 WBC (Bld) 0.300 % 0.0-0.9 [facility] MCV (mean corpuscular volume ) determinationOrdered By: Balbirsherry Griderbonimelanie on 12-03-2024 MCV (RBC) [Entitic vol] 91.3 fL 81-99 [facility] Mean corpuscular hemoglobin (MCH) determinationOrdered By: Balbirsherry Griderbonimelanie on 12-03-2024 MCH (RBC) [Entitic mass] 29.5 pg 27.0-32.0 [facility] Monocyte percentageOrdered B y: Safia Cheobonimelanie on 12-03-2024 Monocytes/100 WBC (Bld) 9.6 % 0-10 [facility] Neutrophil percentageOrdered By: Safia Ruelas on 12-03-2024 Neutrophils/100 WBC (Bld) 59.7 % 47-70 [facility] Platelet countOrdered By: Balbir powell Cheobonimelanie on 12-03-2024 Platelets (Bld) [#/Vol] 280 10*3/uL 150-450 [facility] Potassium measurement (mass/ volume)Ordered By: Balbrijean mariedesireeskye Griderbonimelanie on 12-03-2024 Potassium (Unsp spec) [Mass/Vol] 4.0 mmol/L 3.3-5.1 [facility] RBC Auto (Bld) [#/Vol]Ordere d By: Safia Cheobonimelanie on 12-03-2024 RBC (Bld) [#/Vol] 4.38 10*6/uL 4.2-5.4 [facility] Serum creatinine measurement (mass/volume)Ordered By: Safia Ruelas on 12-03-2024 Creatinine [Mass/Vol] 0.89 mg/dL 0.70-1.20 [facility] Serum glucose measurement (m ass/volume)Ordered By: Safia Ruelas on 12-03-2024 Glucose [Mass/Vol] 77 mg/dL 70-99 [facility] Serum or plasma calcium dayna urement (mass/volume)Ordered By: Safia Griderbonimelanie on 12-03-2024 Calcium [Mass/Vol] 9.6 mg/dL 7.6-11.0 [facility] Serum or plasma urea nitroge n measurement (mass/volume)Ordered By: Safia Ruelas on 12-03-2024 Urea nitrogen [Mass/Vol] 25 mg/dL High 4-19 [facility] Sodium levelOrdered By: Leonides josé antonio Jessenia on 12-03-2024 Sodium [Moles/Vol] 139 mmol/L 133-145 [facility] TSH DL <= 0.005 mIU/L QnOrde red By: Leonidesdesireeskye Griderbonimelanie on 12-03-2024 TSH Qn 3.500 uIU/mL 0.300-4.200 [facility] White blood cell (WBC) count Ordered By: Safia Ruelas on 12-03-2024 WBC (Bld) [#/Vol] 9.9 10*3/uL 4.4-11.0 [facility] Absolute lymphocyte countOrd ered By: Safia Griderbonimelanie on 11-26-2024 Lymphocytes Auto (Unsp spec) [#/Vol] 2.99 10*3/uL 0.83-4.51 [facility] Absolute neutrophil countOrd ered By: [place] Griderbonimelanie on 11-26-2024 Neutrophils (Bld) [#/Vol] 4.2 10*3/uL 2.0-7.7 [facility] Anion gap in Serum or Plasma Ordered By: Safia Griderbonimelanie on 11-26-2024 Anion gap [Moles/Vol] 13 mmol/L - [facility] Automated lymphocyte count a s percentage of total leukocytesOrdered By: Safia Ruelas on 11-26-2024 Lymphocytes/100 WBC Auto (Unsp spec) 37.1 % 19-41 [facility] BUN/creatinine ratioOrdered By: Safia Ruelas on 11-26-2024 Urea nitrogen/Creatinine [Mass ratio] 24.3 mg/mg High 10-20 [facility] Basophil percentageOrdered B y: Safia Ruelas on 11-26-2024 Basophils/100 WBC (Bld) 0.7 % 0-1 [facility] Carbon dioxide, total [Moles /volume] in Central venous bloodOrdered By: Safia Ruelas on 11-26-2024 CO2 [Moles/Vol] 27.1 mmol/L 21.0-32.0 [facility] Chloride assayOrdered By: Balbir Ruelas on 11-26-2024 Chloride [Moles/Vol] 101 mmol/L 98-108 [facility] Eosinophil percentageOrdered By: sherry Ruelas on 11-26-2024 Eosinophils/100 WBC (Bld) 1.9 % 0-5 [facility] Erythrocyte distribution wid th ratioOrdered By: Safia Ruelas on 11-26-2024 Erythrocyte distribution width (RBC) [Ratio] 14.2 % 11.6-14.6 [facility] Erythrocyte distribution wid th standard deviationOrdered By: Safia Ruelas on 11-26-2024 Erythrocyte distribution width (RBC) [Ratio] 48.0 fl High 35.1-43.9 [facility] Glomerular filtration rate ( GFR) estimation/1.73 sq m using serum, plasma, or whole bOrdered By: Safia Ruelas on 11-26-2024 GFR/1.73 sq M.predicted among non-blacks MDRD (S/P/Bld) [Vol rate/Area] 63 mL/min/{1.73_m2} >60 [facility] Comment on above: mL/min/1.73m2 CKD-EP I Creatinine Equation (2020) Hematocrit Auto (Bld) [Volum e fraction]Ordered By: Safia Ruelas on 11-26-2024 Hematocrit (Bld) [Volume fraction] 42.7 % 37-47 [facility] Hemoglobin measurementOrdere d By: Safia Ruelas on 11-26-2024 Hemoglobin (Bld) [Mass/Vol] 13.6 g/dL 12.0-15.0 [facility] Immature granulocytes/100 WB C Auto (Bld)Ordered By: Safia Ruelas on 11-26-2024 Immature granulocytes/100 WBC (Bld) 0.500 % 0.0-0.9 [facility] Comment on above: IG% - Immature Granu locytes (promyelocytes, myelocytes and metamyelocytes) > 1% indicates that a LEFT SHIFT is Present. MCV (mean corpuscular volume ) determinationOrdered By: Safia Ruelas on 11-26-2024 MCV (RBC) [Entitic vol] 92.0 fL 81-99 [facility] Mean corpuscular hemoglobin (MCH) determinationOrdered By: Safia Ruelas on 11-26-2024 MCH (RBC) [Entitic mass] 29.3 pg 27.0-32.0 [facility] Mean corpuscular hemoglobin concentration (MCHC) determinationOrdered By: Safia Ruelas on 11-26-2024 MCHC (RBC) [Mass/Vol] 31.9 g/dL Low 32-36 [facility] Mean platelet volume determi nationOrdered By: Safia Ruelas on 11-26-2024 Platelet mean volume (Bld) [Entitic vol] 11.5 fL 6.2-12.0 [facility] Monocyte percentageOrdered B y: Safia Ruelas on 11-26-2024 Monocytes/100 WBC (Bld) 7.7 % 0-10 [facility] Neutrophil percentageOrdered By: Safia Ruelas on 11-26-2024 Neutrophils/100 WBC (Bld) 52.1 % 47-70 [facility] Nucleated red blood cell per centageOrdered By: Safia Ruelas on 11-26-2024 Nucleated RBC/100 WBC (Bld) [Ratio] 0 % 0-5 [facility] Platelet countOrdered By: Balbir Ruelas on 11-26-2024 Platelets (Bld) [#/Vol] 283 10*3/uL 150-450 [facility] Potassium measurement (mass/ volume)Ordered By: Safia Ruelas on 11-26-2024 Potassium (Unsp spec) [Mass/Vol] 3.8 mmol/L 3.3-5.1 [facility] RBC Auto (Bld) [#/Vol]Ordere d By: Leonidesdesireeskye Griderbonimelanie on 11-26-2024 RBC (Bld) [#/Vol] 4.64 10*6/uL 4.2-5.4 [facility] Serum creatinine measurement (mass/volume)Ordered By: Safia Ruelas on 11-26-2024 Creatinine [Mass/Vol] 0.92 mg/dL 0.70-1.20 [facility] Serum glucose measurement (m ass/volume)Ordered By: Safia Ruelas on 11-26-2024 Glucose [Mass/Vol] 97 mg/dL 70-99 [facility] Serum or plasma calcium dayna urement (mass/volume)Ordered By: Safia Ruelas on 11-26-2024 Calcium [Mass/Vol] 10.0 mg/dL 7.6-11.0 [facility] Serum or plasma urea nitroge n measurement (mass/volume)Ordered By: Safia Ruelas on 11-26-2024 Urea nitrogen [Mass/Vol] 22 mg/dL High 4-19 [facility] Sodium levelOrdered By: Leonides josé antonio Cheobonimelanie on 11-26-2024 Sodium [Moles/Vol] 140 mmol/L 133-145 [facility] White blood cell (WBC) count Ordered By: Safia Ruelas on 11-26-2024 WBC (Bld) [#/Vol] 8.1 10*3/uL 4.4-11.0 [facility] Clostridium difficile detect ion by polymerase chain reactionOrdered By: Safia Ruelas on 11-25-2024 C. difficile DNA CHUCKY+probe Ql (Unsp spec) [facility] Absolute lymphocyte countOrd ered By: Safia Ruelas on 11-19-2024 Lymphocytes Auto (Unsp spec) [#/Vol] 2.71 10*3/uL 0.83-4.51 [facility] Absolute neutrophil countOrd ered By: Safia Ruelas on 11-19-2024 Neutrophils (Bld) [#/Vol] 5.2 10*3/uL 2.0-7.7 [facility] Anion gap in Serum or Plasma Ordered By: Safia Ruelas on 11-19-2024 Anion gap [Moles/Vol] 12 mmol/L 5-15 [facility] Automated lymphocyte count a s percentage of total leukocytesOrdered By: Safia Ruelas on 11-19-2024 Lymphocytes/100 WBC Auto (Unsp spec) 30.4 % 19-41 [facility] BUN/creatinine ratioOrdered By: jean marieatlantaskye Ruelas on 11-19-2024 Urea nitrogen/Creatinine [Mass ratio] 25.0 mg/mg High 10-20 [facility] Basophil percentageOrdered B y: Safia Ruelas on 11-19-2024 Basophils/100 WBC (Bld) 0.6 % 0-1 [facility] Carbon dioxide, total [Moles /volume] in Central venous bloodOrdered By: Safia Ruelas on 11-19-2024 CO2 [Moles/Vol] 25.5 mmol/L 21.0-32.0 [facility] Chloride assayOrdered By: Balbir Ruelas on 11-19-2024 Chloride [Moles/Vol] 101 mmol/L 98-108 [facility] Eosinophil percentageOrdered By: jean marieatlantaskye Ruelas on 11-19-2024 Eosinophils/100 WBC (Bld) 2.1 % 0-5 [facility] Erythrocyte distribution wid th ratioOrdered By: Safia Ruelas on 11-19-2024 Erythrocyte distribution width (RBC) [Ratio] 13.9 % 11.6-14.6 [facility] Erythrocyte distribution wid th standard deviationOrdered By: sherry Ruelas on 11-19-2024 Erythrocyte distribution width (RBC) [Ratio] 46.6 fl High 35.1-43.9 [facility] Glomerular filtration rate ( GFR) estimation/1.73 sq m using serum, plasma, or whole bOrdered By: Safia Ruelas on 11-19-2024 GFR/1.73 sq M.predicted among non-blacks MDRD (S/P/Bld) [Vol rate/Area] 66 mL/min/{1.73_m2} >60 [facility] Comment on above: mL/min/1.73m2 CKD-EP I Creatinine Equation (2020) Hematocrit Auto (Bld) [Volum e fraction]Ordered By: Safia Ruelas on 11-19-2024 Hematocrit (Bld) [Volume fraction] 39.2 % 37-47 [facility] Hemoglobin measurementOrdere d By: Safia Ruelas on 11-19-2024 Hemoglobin (Bld) [Mass/Vol] 12.7 g/dL 12.0-15.0 [facility] Immature granulocytes/100 WB C Auto (Bld)Ordered By: Safia Ruelas on 11-19-2024 Immature granulocytes/100 WBC (Bld) 0.300 % 0.0-0.9 [facility] Comment on above: IG% - Immature Granu locytes (promyelocytes, myelocytes and metamyelocytes) > 1% indicates that a LEFT SHIFT is Present. MCV (mean corpuscular volume ) determinationOrdered By: Safia Ruelas on 11-19-2024 MCV (RBC) [Entitic vol] 91.4 fL 81-99 [facility] Mean corpuscular hemoglobin (MCH) determinationOrdered By: Safia Ruelas on 11-19-2024 MCH (RBC) [Entitic mass] 29.6 pg 27.0-32.0 [facility] Mean corpuscular hemoglobin concentration (MCHC) determinationOrdered By: Safia Ruelas on 11-19-2024 MCHC (RBC) [Mass/Vol] 32.4 g/dL 32-36 [facility] Mean platelet volume determi nationOrdered By: Safia Ruelas on 11-19-2024 Platelet mean volume (Bld) [Entitic vol] 11.5 fL 6.2-12.0 [facility] Monocyte percentageOrdered B y: Safia Ruelas on 11-19-2024 Monocytes/100 WBC (Bld) 7.8 % 0-10 [facility] Neutrophil percentageOrdered By: Safia Ruelas on 11-19-2024 Neutrophils/100 WBC (Bld) 58.8 % 47-70 [facility] Nucleated red blood cell per centageOrdered By: Safia Cheoquyen on 11-19-2024 Nucleated RBC/100 WBC (Bld) [Ratio] 0 % 0-5 [facility] Platelet countOrdered By: Balbir sherry Cheobonimelanie on 11-19-2024 Platelets (Bld) [#/Vol] 300 10*3/uL 150-450 [facility] Potassium measurement (mass/ volume)Ordered By: Safia Griderbonimelanie on 11-19-2024 Potassium (Unsp spec) [Mass/Vol] 3.8 mmol/L 3.3-5.1 [facility] RBC Auto (Bld) [#/Vol]Ordere d By: Leonidesdesireeskye Griderbonimelanie on 11-19-2024 RBC (Bld) [#/Vol] 4.29 10*6/uL 4.2-5.4 [facility] Serum creatinine measurement (mass/volume)Ordered By: Safia Ruelas on 11-19-2024 Creatinine [Mass/Vol] 0.88 mg/dL 0.70-1.20 [facility] Serum glucose measurement (m ass/volume)Ordered By: Balbirjean mariedesireeskye Ruelas on 11-19-2024 Glucose [Mass/Vol] 136 mg/dL High 70-99 [facility] Serum or plasma calcium dayna urement (mass/volume)Ordered By: Leonidesdesireeskye Griderbonimelanie on 11-19-2024 Calcium [Mass/Vol] 9.6 mg/dL 7.6-11.0 [facility] Serum or plasma urea nitroge n measurement (mass/volume)Ordered By: Safia Ruelas on 11-19-2024 Urea nitrogen [Mass/Vol] 22 mg/dL High 4-19 [facility] Sodium levelOrdered By: Balbirjean marie josé antonio Cheobonimelanie on 11-19-2024 Sodium [Moles/Vol] 139 mmol/L 133-145 [facility] White blood cell (WBC) count Ordered By: Safia Ruelas on 11-19-2024 WBC (Bld) [#/Vol] 8.9 10*3/uL 4.4-11.0 [facility] Absolute lymphocyte countOrd ered By: Leonidesjosé antonio Cheobonimelanie on 11-12-2024 Lymphocytes Auto (Unsp spec) [#/Vol] 2.49 10*3/uL 0.83-4.51 [facility] Absolute neutrophil countOrd ered By: Leonidesdesireeskye Griderbonimelanie on 11-12-2024 Neutrophils (Bld) [#/Vol] 4.2 10*3/uL 2.0-7.7 [facility] Anion gap in Serum or Plasma Ordered By: Safia Ruelas on 11-12-2024 Anion gap [Moles/Vol] 12 mmol/L 5-15 [facility] Automated lymphocyte count a s percentage of total leukocytesOrdered By: Safia Ruelas on 11-12-2024 Lymphocytes/100 WBC Auto (Unsp spec) 31.9 % 19-41 [facility] BUN/creatinine ratioOrdered By: Safia Ruelas on 11-12-2024 Urea nitrogen/Creatinine [Mass ratio] 28.1 mg/mg High 10-20 [facility] Basophil percentageOrdered B y: Safia Ruelas on 11-12-2024 Basophils/100 WBC (Bld) 0.6 % 0-1 [facility] Carbon dioxide, total [Moles /volume] in Central venous bloodOrdered By: Safia Ruelas on 11-12-2024 CO2 [Moles/Vol] 25.1 mmol/L 21.0-32.0 [facility] Chloride assayOrdered By: Balbir Ruelas on 11-12-2024 Chloride [Moles/Vol] 102 mmol/L 98-108 [facility] Eosinophil percentageOrdered By: sherry Ruelas on 11-12-2024 Eosinophils/100 WBC (Bld) 2.8 % 0-5 [facility] Erythrocyte distribution wid th ratioOrdered By: Safia Ruelas on 11-12-2024 Erythrocyte distribution width (RBC) [Ratio] 13.8 % 11.6-14.6 [facility] Erythrocyte distribution wid th standard deviationOrdered By: Safia Ruelas on 11-12-2024 Erythrocyte distribution width (RBC) [Ratio] 46.7 fl High 35.1-43.9 [facility] Glomerular filtration rate ( GFR) estimation/1.73 sq m using serum, plasma, or whole bOrdered By: Safia Ruelas on 11-12-2024 GFR/1.73 sq M.predicted among non-blacks MDRD (S/P/Bld) [Vol rate/Area] 70 mL/min/{1.73_m2} >60 [facility] Comment on above: mL/min/1.73m2 CKD-EP I Creatinine Equation (2020) Hematocrit Auto (Bld) [Volum e fraction]Ordered By: jean marieatlantaskye Ruelas on 11-12-2024 Hematocrit (Bld) [Volume fraction] 40.6 % 37-47 [facility] Hemoglobin measurementOrdere d By: Safia Ruelas on 11-12-2024 Hemoglobin (Bld) [Mass/Vol] 13.2 g/dL 12.0-15.0 [facility] Immature granulocytes/100 WB C Auto (Bld)Ordered By: Safia Ruelas on 11-12-2024 Immature granulocytes/100 WBC (Bld) 0.400 % 0.0-0.9 [facility] Comment on above: IG% - Immature Granu locytes (promyelocytes, myelocytes and metamyelocytes) > 1% indicates that a LEFT SHIFT is Present. MCV (mean corpuscular volume ) determinationOrdered By: Safia Ruelas on 11-12-2024 MCV (RBC) [Entitic vol] 92.1 fL 81-99 [facility] Mean corpuscular hemoglobin (MCH) determinationOrdered By: Safia Ruelas on 11-12-2024 MCH (RBC) [Entitic mass] 29.9 pg 27.0-32.0 [facility] Mean corpuscular hemoglobin concentration (MCHC) determinationOrdered By: jean marieatlantaskye Ruelas on 11-12-2024 MCHC (RBC) [Mass/Vol] 32.5 g/dL 32-36 [facility] Mean platelet volume determi nationOrdered By: Safia Ruelas on 11-12-2024 Platelet mean volume (Bld) [Entitic vol] 11.7 fL 6.2-12.0 [facility] Monocyte percentageOrdered B y: Safia Ruelas on 11-12-2024 Monocytes/100 WBC (Bld) 10.0 % 0-10 [facility] Neutrophil percentageOrdered By: Safia Ruelas on 11-12-2024 Neutrophils/100 WBC (Bld) 54.3 % 47-70 [facility] Nucleated red blood cell per centageOrdered By: Safia Ruelas on 11-12-2024 Nucleated RBC/100 WBC (Bld) [Ratio] 0 % 0-5 [facility] Platelet countOrdered By: Balbir Ruelas on 11-12-2024 Platelets (Bld) [#/Vol] 304 10*3/uL 150-450 [facility] Potassium measurement (mass/ volume)Ordered By: Safia Ruelas on 11-12-2024 Potassium (Unsp spec) [Mass/Vol] 3.9 mmol/L 3.3-5.1 [facility] RBC Auto (Bld) [#/Vol]Ordere d By: Safia Ruelas on 11-12-2024 RBC (Bld) [#/Vol] 4.41 10*6/uL 4.2-5.4 [facility] Serum creatinine measurement (mass/volume)Ordered By: Safia Ruelas on 11-12-2024 Creatinine [Mass/Vol] 0.84 mg/dL 0.70-1.20 [facility] Serum glucose measurement (m ass/volume)Ordered By: Safia Ruelas on 11-12-2024 Glucose [Mass/Vol] 112 mg/dL High 70-99 [facility] Serum or plasma calcium dayna urement (mass/volume)Ordered By: Safia Ruelas on 11-12-2024 Calcium [Mass/Vol] 9.7 mg/dL 7.6-11.0 [facility] Serum or plasma urea nitroge n measurement (mass/volume)Ordered By: Safia Ruelas on 11-12-2024 Urea nitrogen [Mass/Vol] 24 mg/dL High 4-19 [facility] Sodium levelOrdered By: Leonides josé antonio Cheobonimelanie on 11-12-2024 Sodium [Moles/Vol] 139 mmol/L 133-145 [facility] White blood cell (WBC) count Ordered By: Leonidesjosé antonio Cheobonimelanie on 11-12-2024 WBC (Bld) [#/Vol] 7.8 10*3/uL 4.4-11.0 [facility] Absolute lymphocyte countOrd ered By: Leonidesdesireeskye Griderbonimelanie on 11-05-2024 Lymphocytes Auto (Unsp spec) [#/Vol] 2.91 10*3/uL 0.83-4.51 [facility] Absolute neutrophil countOrd ered By: Safia Griderbonimelanie on 11-05-2024 Neutrophils (Bld) [#/Vol] 4.6 10*3/uL 2.0-7.7 [facility] Anion gap in Serum or Plasma Ordered By: Safia Griderbonimelanie on 11-05-2024 Anion gap [Moles/Vol] 13 mmol/L 5-15 [facility] Automated lymphocyte count a s percentage of total leukocytesOrdered By: Safia Ruelas on 11-05-2024 Lymphocytes/100 WBC Auto (Unsp spec) 33.7 % 19-41 [facility] BUN/creatinine ratioOrdered By: Safia Griderbonimelanie on 11-05-2024 Urea nitrogen/Creatinine [Mass ratio] 23.3 mg/mg High 10-20 [facility] Basophil percentageOrdered B y: Safia Griderbonimelanie on 11-05-2024 Basophils/100 WBC (Bld) 0.9 % 0-1 [facility] Carbon dioxide, total [Moles /volume] in Central venous bloodOrdered By: Safia Ruelas on 11-05-2024 CO2 [Moles/Vol] 24.2 mmol/L 21.0-32.0 [facility] Chloride assayOrdered By: Balbir Ruelas on 11-05-2024 Chloride [Moles/Vol] 102 mmol/L 98-108 [facility] Eosinophil percentageOrdered By: Safia Ruelas on 11-05-2024 Eosinophils/100 WBC (Bld) 2.7 % 0-5 [facility] Erythrocyte distribution wid th ratioOrdered By: Safia Ruelas on 11-05-2024 Erythrocyte distribution width (RBC) [Ratio] 13.9 % 11.6-14.6 [facility] Erythrocyte distribution wid th standard deviationOrdered By: Safia Ruelas on 11-05-2024 Erythrocyte distribution width (RBC) [Ratio] 47.1 fl High 35.1-43.9 [facility] Glomerular filtration rate ( GFR) estimation/1.73 sq m using serum, plasma, or whole bOrdered By: Safia Ruelas on 11-05-2024 GFR/1.73 sq M.predicted among non-blacks MDRD (S/P/Bld) [Vol rate/Area] 62 mL/min/{1.73_m2} >60 [facility] Comment on above: mL/min/1.73m2 CKD-EP I Creatinine Equation (2020) Hematocrit Auto (Bld) [Volum e fraction]Ordered By: Safia Ruelas on 11-05-2024 Hematocrit (Bld) [Volume fraction] 40.7 % 37-47 [facility] Hemoglobin measurementOrdere d By: Safia Ruelas on 11-05-2024 Hemoglobin (Bld) [Mass/Vol] 12.9 g/dL 12.0-15.0 [facility] Immature granulocytes/100 WB C Auto (Bld)Ordered By: Safia Ruelas 11-05-2024 Immature granulocytes/100 WBC (Bld) 0.500 % 0.0-0.9 [facility] Comment on above: IG% - Immature Granu locytes (promyelocytes, myelocytes and metamyelocytes) > 1% indicates that a LEFT SHIFT is Present. MCV (mean corpuscular volume ) determinationOrdered By: Safia Ruelas on 11-05-2024 MCV (RBC) [Entitic vol] 92.9 fL 81-99 [facility] Mean corpuscular hemoglobin (MCH) determinationOrdered By: Leonidesatlantaskye Ruelas 11-05-2024 MCH (RBC) [Entitic mass] 29.5 pg 27.0-32.0 [facility] Mean corpuscular hemoglobin concentration (MCHC) determinationOrdered By: Safia Ruelas on 11-05-2024 MCHC (RBC) [Mass/Vol] 31.7 g/dL Low 32-36 [facility] Mean platelet volume determi nationOrdered By: Safia Ruelas on 11-05-2024 Platelet mean volume (Bld) [Entitic vol] 11.2 fL 6.2-12.0 [facility] Monocyte percentageOrdered B y: Safia Ruelas on 11-05-2024 Monocytes/100 WBC (Bld) 8.6 % 0-10 [facility] Neutrophil percentageOrdered By: Safia Ruelas on 11-05-2024 Neutrophils/100 WBC (Bld) 53.6 % 47-70 [facility] Nucleated red blood cell per centageOrdered By: Safia Ruelas on 11-05-2024 Nucleated RBC/100 WBC (Bld) [Ratio] 0 % 0-5 [facility] Platelet countOrdered By: Balbir Ruelas on 11-05-2024 Platelets (Bld) [#/Vol] 318 10*3/uL 150-450 [facility] Potassium measurement (mass/ volume)Ordered By: Safia Ruelas on 11-05-2024 Potassium (Unsp spec) [Mass/Vol] 4.0 mmol/L 3.3-5.1 [facility] RBC Auto (Bld) [#/Vol]Ordere d By: Safia Ruelas on 11-05-2024 RBC (Bld) [#/Vol] 4.38 10*6/uL 4.2-5.4 [facility] Serum creatinine measurement (mass/volume)Ordered By: Safia Ruelas on 11-05-2024 Creatinine [Mass/Vol] 0.93 mg/dL 0.70-1.20 [facility] Serum glucose measurement (m ass/volume)Ordered By: Safia Ruelas on 11-05-2024 Glucose [Mass/Vol] 70 mg/dL 70-99 [facility] Serum or plasma calcium dayna urement (mass/volume)Ordered By: Safia Ruelas on 11-05-2024 Calcium [Mass/Vol] 9.5 mg/dL 7.6-11.0 [facility] Serum or plasma urea nitroge n measurement (mass/volume)Ordered By: Bandarskye Griderbonimelanie on 11-05-2024 Urea nitrogen [Mass/Vol] 22 mg/dL High 4-19 [facility] Sodium levelOrdered By: Leonides Ruelas on 11-05-2024 Sodium [Moles/Vol] 139 mmol/L 133-145 [facility] White blood cell (WBC) count Ordered By: Balbirjean mariejosé antonio Cheobonimelanie on 11-05-2024 WBC (Bld) [#/Vol] 8.6 10*3/uL 4.4-11.0 [facility] Absolute lymphocyte countOrd ered By: Balbirjean mariejosé antonio Cheobonimelanie on 10-29-2024 Lymphocytes Auto (Unsp spec) [#/Vol] 2.69 10*3/uL 0.83-4.51 [facility] Absolute neutrophil countOrd ered By: Safia Cheobonimelanie on 10-29-2024 Neutrophils (Bld) [#/Vol] 4.5 10*3/uL 2.0-7.7 [facility] Anion gap in Serum or Plasma Ordered By: Balbirjean mariejosé antonio Cheobonimelanie on 10-29-2024 Anion gap [Moles/Vol] 11 mmol/L 5-15 [facility] Automated lymphocyte count a s percentage of total leukocytesOrdered By: Balbirsherry Griderbonimelanie on 10-29-2024 Lymphocytes/100 WBC Auto (Unsp spec) 32.6 % 19-41 [facility] BUN/creatinine ratioOrdered By: Balbirjean mariedesireeskye Griderbonimelanie on 10-29-2024 Urea nitrogen/Creatinine [Mass ratio] 25.2 mg/mg High 10-20 [facility] Basophil percentageOrdered B y: Safia Cheobonimelanie on 10-29-2024 Basophils/100 WBC (Bld) 0.7 % 0-1 [facility] Carbon dioxide, total [Moles /volume] in Central venous bloodOrdered By: Balbirsherry Griderbonimelanie on 10-29-2024 CO2 [Moles/Vol] 25.7 mmol/L 21.0-32.0 [facility] Chloride assayOrdered By: Balbir Ruelas on 10-29-2024 Chloride [Moles/Vol] 102 mmol/L 98-108 [facility] Eosinophil percentageOrdered By: Safia Ruelas on 10-29-2024 Eosinophils/100 WBC (Bld) 2.1 % 0-5 [facility] Erythrocyte distribution wid th ratioOrdered By: Safia Ruelas on 10-29-2024 Erythrocyte distribution width (RBC) [Ratio] 13.6 % 11.6-14.6 [facility] Erythrocyte distribution wid th standard deviationOrdered By: Safia Ruelas on 10-29-2024 Erythrocyte distribution width (RBC) [Ratio] 46.6 fl High 35.1-43.9 [facility] Glomerular filtration rate ( GFR) estimation/1.73 sq m using serum, plasma, or whole bOrdered By: Safia Ruelas on 10-29-2024 GFR/1.73 sq M.predicted among non-blacks MDRD (S/P/Bld) [Vol rate/Area] 59 mL/min/{1.73_m2} Low >60 [facility] Comment on above: mL/min/1.73m2 CKD-EP I Creatinine Equation (2020) Hematocrit Auto (Bld) [Volum e fraction]Ordered By: Safia Ruelas on 10-29-2024 Hematocrit (Bld) [Volume fraction] 37.8 % 37-47 [facility] Hemoglobin measurementOrdere d By: Safia Ruelas on 10-29-2024 Hemoglobin (Bld) [Mass/Vol] 12.2 g/dL 12.0-15.0 [facility] Immature granulocytes/100 WB C Auto (Bld)Ordered By: Safia Ruelas 10-29-2024 Immature granulocytes/100 WBC (Bld) 0.400 % 0.0-0.9 [facility] Comment on above: IG% - Immature Granu locytes (promyelocytes, myelocytes and metamyelocytes) > 1% indicates that a LEFT SHIFT is Present. MCV (mean corpuscular volume ) determinationOrdered By: Safia Ruelas on 10-29-2024 MCV (RBC) [Entitic vol] 92.2 fL 81-99 [facility] Mean corpuscular hemoglobin (MCH) determinationOrdered By: Safia Ruelas on 10-29-2024 MCH (RBC) [Entitic mass] 29.8 pg 27.0-32.0 [facility] Mean corpuscular hemoglobin concentration (MCHC) determinationOrdered By: Safia Ruelas on 10-29-2024 MCHC (RBC) [Mass/Vol] 32.3 g/dL 32-36 [facility] Mean platelet volume determi nationOrdered By: Safia Ruelas on 10-29-2024 Platelet mean volume (Bld) [Entitic vol] 11.1 fL 6.2-12.0 [facility] Monocyte percentageOrdered B y: Safia Ruelas on 10-29-2024 Monocytes/100 WBC (Bld) 9.9 % 0-10 [facility] Neutrophil percentageOrdered By: Safia Ruelas on 10-29-2024 Neutrophils/100 WBC (Bld) 54.3 % 47-70 [facility] Nucleated red blood cell per centageOrdered By: Safia Ruelas on 10-29-2024 Nucleated RBC/100 WBC (Bld) [Ratio] 0 % 0-5 [facility] Platelet countOrdered By: Balbir jean mariejosé antonio Ruelas on 10-29-2024 Platelets (Bld) [#/Vol] 283 10*3/uL 150-450 [facility] Potassium measurement (mass/ volume)Ordered By: Safia Ruelas on 10-29-2024 Potassium (Unsp spec) [Mass/Vol] 3.9 mmol/L 3.3-5.1 [facility] RBC Auto (Bld) [#/Vol]Ordere d By: Safia Ruelas on 10-29-2024 RBC (Bld) [#/Vol] 4.10 10*6/uL Low 4.2-5.4 [facility] Serum creatinine measurement (mass/volume)Ordered By: Safia Ruelas on 10-29-2024 Creatinine [Mass/Vol] 0.97 mg/dL 0.70-1.20 [facility] Serum glucose measurement (m ass/volume)Ordered By: Safia Ruelas on 10-29-2024 Glucose [Mass/Vol] 74 mg/dL 70-99 [facility] Serum or plasma calcium dayna urement (mass/volume)Ordered By: Safia Ruelas on 10-29-2024 Calcium [Mass/Vol] 9.5 mg/dL 7.6-11.0 [facility] Serum or plasma urea nitroge n measurement (mass/volume)Ordered By: Safia Ruelas on 10-29-2024 Urea nitrogen [Mass/Vol] 24 mg/dL High 4-19 [facility] Sodium levelOrdered By: Leonides Ruelas on 10-29-2024 Sodium [Moles/Vol] 138 mmol/L 133-145 [facility] White blood cell (WBC) count Ordered By: Safia Ruelas on 10-29-2024 WBC (Bld) [#/Vol] 8.3 10*3/uL 4.4-11.0 [facility] Bilirubin Test strip Ql (U)O rdered By: Safia Ruelas on 10-23-2024 Bilirubin Ql (U) Negative Negative [facility] Ketones Test strip Ql (U)Ord ered By: Safia Ruelas on 10-23-2024 Ketones Ql (U) Negative Negative [facility] Nitrite Test strip Ql (U)Ord ered By: Safia Ruelas on 10-23-2024 Nitrite Ql (U) Positive High Negative [facility] Protein Test strip Ql (U)Ord ered By: Safia Ruelas on 10-23-2024 Protein Ql (U) 15 mg/dl High Negative [facility] Urine clarityOrdered By: Augusto Ruelas on 10-23-2024 Clarity (U) Clear Clear [facility] Urine color determinationOrd ered By: Safia Ruelas on 10-23-2024 Color (U) Yellow Yellow [facility] Urine cultureOrdered By: Augusto Ruelas on 10-23-2024 Bacteria identified Cx Nom (U) Klebsiella pneumoniae sp pneum Abnormal [facility] Urine glucose detectionOrder ed By: Safia Ruelas on 10-23-2024 Glucose Ql (U) Normal mg/dl Normal [facility] Urine leukocyte esterase det ection by dipstickOrdered By: Safia Ruelas on 10-23-2024 Leukocyte esterase Test strip Ql (U) 500 /ul High Negative [facility] Urine pHOrdered By: Mazin Ruelas on 10-23-2024 pH (U) 6.0 [pH] 5.0 - 8.0 [facility] Urine specific gravity measu rementOrdered By: Safia Ruelas on 10-23-2024 Specific gravity (U) [Rel density] 1.010 1.002-1.030 [facility] Urine urobilinogen measureme ntOrdered By: Safia Ruelas on 10-23-2024 Urobilinogen Ql (U) Normal mg/dl Normal [facility] Absolute lymphocyte countOrd ered By: Safia Ruelas on 10-22-2024 Lymphocytes Auto (Unsp spec) [#/Vol] 3.07 10*3/uL 0.83-4.51 [facility] Absolute neutrophil countOrd ered By: Safia Ruelas on 10-22-2024 Neutrophils (Bld) [#/Vol] 4.6 10*3/uL 2.0-7.7 [facility] Anion gap in Serum or Plasma Ordered By: Safia Ruelas on 10-22-2024 Anion gap [Moles/Vol] 15 mmol/L 5-15 [facility] Automated lymphocyte count a s percentage of total leukocytesOrdered By: Safia Ruelas on 10-22-2024 Lymphocytes/100 WBC Auto (Unsp spec) 34.8 % 19-41 [facility] BUN/creatinine ratioOrdered By: Safia Ruelas on 10-22-2024 Urea nitrogen/Creatinine [Mass ratio] 28.6 mg/mg High 10-20 [facility] Basophil percentageOrdered B y: Safia Ruelas on 10-22-2024 Basophils/100 WBC (Bld) 0.9 % 0-1 [facility] Carbon dioxide, total [Moles /volume] in Central venous bloodOrdered By: Safia Ruelas on 10-22-2024 CO2 [Moles/Vol] 23.1 mmol/L 21.0-32.0 [facility] Chloride assayOrdered By: Balbir Ruelas on 10-22-2024 Chloride [Moles/Vol] 100 mmol/L 98-108 [facility] Eosinophil percentageOrdered By: sherry Ruelas on 10-22-2024 Eosinophils/100 WBC (Bld) 3.1 % 0-5 [facility] Erythrocyte distribution wid th ratioOrdered By: jean marieatlantaskye Ruelas on 10-22-2024 Erythrocyte distribution width (RBC) [Ratio] 13.6 % 11.6-14.6 [facility] Erythrocyte distribution wid th standard deviationOrdered By: jean marieatlantaskye Ruelas on 10-22-2024 Erythrocyte distribution width (RBC) [Ratio] 45.9 fl High 35.1-43.9 [facility] Glomerular filtration rate ( GFR) estimation/1.73 sq m using serum, plasma, or whole bOrdered By: Safia Ruelas on 10-22-2024 GFR/1.73 sq M.predicted among non-blacks MDRD (S/P/Bld) [Vol rate/Area] 60 mL/min/{1.73_m2} >60 [facility] Comment on above: mL/min/1.73m2 CKD-EP I Creatinine Equation (2020) Hematocrit Auto (Bld) [Volum e fraction]Ordered By: Safia Ruelas on 10-22-2024 Hematocrit (Bld) [Volume fraction] 40.7 % 37-47 [facility] Hemoglobin measurementOrdere d By: Safia Ruelas on 10-22-2024 Hemoglobin (Bld) [Mass/Vol] 13.1 g/dL 12.0-15.0 [facility] Immature granulocytes/100 WB C Auto (Bld)Ordered By: Safia Ruelas on 10-22-2024 Immature granulocytes/100 WBC (Bld) 1.400 % High 0.0-0.9 [facility] Comment on above: IG% - Immature Granu locytes (promyelocytes, myelocytes and metamyelocytes) > 1% indicates that a LEFT SHIFT is Present. MCV (mean corpuscular volume ) determinationOrdered By: Safia Ruelas on 10-22-2024 MCV (RBC) [Entitic vol] 91.9 fL 81-99 [facility] Mean corpuscular hemoglobin (MCH) determinationOrdered By: Safia Ruelas on 10-22-2024 MCH (RBC) [Entitic mass] 29.6 pg 27.0-32.0 [facility] Mean corpuscular hemoglobin concentration (MCHC) determinationOrdered By: Safia Ruelas on 10-22-2024 MCHC (RBC) [Mass/Vol] 32.2 g/dL 32-36 [facility] Mean platelet volume determi nationOrdered By: Safia Ruelas on 10-22-2024 Platelet mean volume (Bld) [Entitic vol] 11.2 fL 6.2-12.0 [facility] Monocyte percentageOrdered B y: Safia Ruelas on 10-22-2024 Monocytes/100 WBC (Bld) 7.7 % 0-10 [facility] Neutrophil percentageOrdered By: [facility] on 10-22-2024 Neutrophils/100 WBC (Bld) 52.1 % 47-70 [facility] Nucleated red blood cell per centageOrdered By: Safia Ruelas on 10-22-2024 Nucleated RBC/100 WBC (Bld) [Ratio] 0 % 0-5 [facility] Platelet countOrdered By: Balbir jean mariejosé antonio Ruelas on 10-22-2024 Platelets (Bld) [#/Vol] 334 10*3/uL 150-450 [facility] Potassium measurement (mass/ volume)Ordered By: Safia Ruelas on 10-22-2024 Potassium (Unsp spec) [Mass/Vol] 3.7 mmol/L 3.3-5.1 [facility] RBC Auto (Bld) [#/Vol]Ordere d By: Safia Ruelas on 10-22-2024 RBC (Bld) [#/Vol] 4.43 10*6/uL 4.2-5.4 [facility] Serum creatinine measurement (mass/volume)Ordered By: Safia Ruelas on 10-22-2024 Creatinine [Mass/Vol] 0.96 mg/dL 0.70-1.20 [facility] Serum glucose measurement (m ass/volume)Ordered By: Safia Ruelas on 10-22-2024 Glucose [Mass/Vol] 106 mg/dL High 70-99 [facility] Serum or plasma calcium dayna urement (mass/volume)Ordered By: Safia Ruelas on 10-22-2024 Calcium [Mass/Vol] 9.4 mg/dL 7.6-11.0 [facility] Serum or plasma urea nitroge n measurement (mass/volume)Ordered By: Safia Ruelas on 10-22-2024 Urea nitrogen [Mass/Vol] 28 mg/dL High 4-19 [facility] Sodium levelOrdered By: Leonides Ruelas on 10-22-2024 Sodium [Moles/Vol] 138 mmol/L 133-145 [facility] TSH DL <= 0.005 mIU/L QnOrde red By: Safia Ruelas on 10-22-2024 TSH Qn 4.630 uIU/mL High 0.300-4.200 [facility] White blood cell (WBC) count Ordered By: Safia Ruelas on 10-22-2024 WBC (Bld) [#/Vol] 8.8 10*3/uL 4.4-11.0 [facility] Absolute lymphocyte countOrd ered By: Safia Ruelas on 10-15-2024 Lymphocytes Auto (Unsp spec) [#/Vol] 3.04 10*3/uL 0.83-4.51 [facility] Absolute neutrophil countOrd ered By: Safia Ruelas on 10-15-2024 Neutrophils (Bld) [#/Vol] 4.3 10*3/uL 2.0-7.7 [facility] Anion gap in Serum or Plasma Ordered By: Safia Ruelas on 10-15-2024 Anion gap [Moles/Vol] 12 mmol/L 5-15 [facility] Automated lymphocyte count a s percentage of total leukocytesOrdered By: Safia Ruelas on 10-15-2024 Lymphocytes/100 WBC Auto (Unsp spec) 36.7 % 19-41 [facility] BUN/creatinine ratioOrdered By: Safia Ruelas on 10-15-2024 Urea nitrogen/Creatinine [Mass ratio] 36.5 mg/mg High 10-20 [facility] Basophil percentageOrdered B y: Safia Ruelas on 10-15-2024 Basophils/100 WBC (Bld) 0.7 % 0-1 [facility] Carbon dioxide, total [Moles /volume] in Central venous bloodOrdered By: Safia Ruelas on 10-15-2024 CO2 [Moles/Vol] 25.2 mmol/L 21.0-32.0 [facility] Chloride assayOrdered By: Balbir jean mariejosé antonio Ruelas on 10-15-2024 Chloride [Moles/Vol] 100 mmol/L 98-108 [facility] Eosinophil percentageOrdered By: Leonidesatlantaskye Ruelas on 10-15-2024 Eosinophils/100 WBC (Bld) 2.4 % 0-5 [facility] Erythrocyte distribution wid th ratioOrdered By: jean marieatlantaskye Ruelas on 10-15-2024 Erythrocyte distribution width (RBC) [Ratio] 13.5 % 11.6-14.6 [facility] Erythrocyte distribution wid th standard deviationOrdered By: [facility] on 10-15-2024 Erythrocyte distribution width (RBC) [Ratio] 45.2 fl High 35.1-43.9 [facility] Glomerular filtration rate ( GFR) estimation/1.73 sq m using serum, plasma, or whole bOrdered By: Safia Ruelas on 10-15-2024 GFR/1.73 sq M.predicted among non-blacks MDRD (S/P/Bld) [Vol rate/Area] 71 mL/min/{1.73_m2} >60 [facility] Comment on above: mL/min/1.73m2 CKD-EP I Creatinine Equation (2020) Hematocrit Auto (Bld) [Volum e fraction]Ordered By: Safia Ruelas on 10-15-2024 Hematocrit (Bld) [Volume fraction] 40.3 % 37-47 [facility] Hemoglobin measurementOrdere d By: Safia Ruelas on 10-15-2024 Hemoglobin (Bld) [Mass/Vol] 13.3 g/dL 12.0-15.0 [facility] Immature granulocytes/100 WB C Auto (Bld)Ordered By: Safia Ruelas on 10-15-2024 Immature granulocytes/100 WBC (Bld) 0.400 % 0.0-0.9 [facility] Comment on above: IG% - Immature Granu locytes (promyelocytes, myelocytes and metamyelocytes) > 1% indicates that a LEFT SHIFT is Present. MCV (mean corpuscular volume ) determinationOrdered By: Safia Ruelas on 10-15-2024 MCV (RBC) [Entitic vol] 91.0 fL 81-99 [facility] Mean corpuscular hemoglobin (MCH) determinationOrdered By: Safia Ruelas on 10-15-2024 MCH (RBC) [Entitic mass] 30.0 pg 27.0-32.0 [facility] Mean corpuscular hemoglobin concentration (MCHC) determinationOrdered By: Safia Ruelas on 10-15-2024 MCHC (RBC) [Mass/Vol] 33.0 g/dL 32-36 [facility] Mean platelet volume determi nationOrdered By: Safia Ruelas on 10-15-2024 Platelet mean volume (Bld) [Entitic vol] 11.9 fL 6.2-12.0 [facility] Monocyte percentageOrdered B y: Safia Ruelas on 10-15-2024 Monocytes/100 WBC (Bld) 8.2 % 0-10 [facility] Neutrophil percentageOrdered By: Safia Ruelas on 10-15-2024 Neutrophils/100 WBC (Bld) 51.6 % 47-70 [facility] Nucleated red blood cell per centageOrdered By: Safia Ruelas on 10-15-2024 Nucleated RBC/100 WBC (Bld) [Ratio] 0 % 0-5 [facility] Platelet countOrdered By: Balbir Ruelas on 10-15-2024 Platelets (Bld) [#/Vol] 221 10*3/uL 150-450 [facility] Potassium measurement (mass/ volume)Ordered By: Safia Ruelas on 10-15-2024 Potassium (Unsp spec) [Mass/Vol] 3.8 mmol/L 3.3-5.1 [facility] RBC Auto (Bld) [#/Vol]Ordere d By: Safia Ruelas on 10-15-2024 RBC (Bld) [#/Vol] 4.43 10*6/uL 4.2-5.4 [facility] Serum creatinine measurement (mass/volume)Ordered By: Safia Ruelas on 10-15-2024 Creatinine [Mass/Vol] 0.83 mg/dL 0.70-1.20 [facility] Serum glucose measurement (m ass/volume)Ordered By: Safia Ruelas on 10-15-2024 Glucose [Mass/Vol] 68 mg/dL Low 70-99 [facility] Serum or plasma calcium dayna urement (mass/volume)Ordered By: Safia Ruelas on 10-15-2024 Calcium [Mass/Vol] 9.3 mg/dL 7.6-11.0 [facility] Serum or plasma urea nitroge n measurement (mass/volume)Ordered By: Safia Ruelas on 10-15-2024 Urea nitrogen [Mass/Vol] 30 mg/dL High 4-19 [facility] Sodium levelOrdered By: Leonides Ruelas on 10-15-2024 Sodium [Moles/Vol] 138 mmol/L 133-145 [facility] White blood cell (WBC) count Ordered By: Safia Ruelas on 10-15-2024 WBC (Bld) [#/Vol] 8.3 10*3/uL 4.4-11.0 [facility] Absolute lymphocyte countOrd ered By: Safia Ruelas on 10-08-2024 Lymphocytes Auto (Unsp spec) [#/Vol] 2.52 10*3/uL 0.83-4.51 [facility] Absolute neutrophil countOrd ered By: Safia Ruelas on 10-08-2024 Neutrophils (Bld) [#/Vol] 4.9 10*3/uL 2.0-7.7 [facility] Anion gap in Serum or Plasma Ordered By: Safia Reulas on 10-08-2024 Anion gap [Moles/Vol] 14 mmol/L 5-15 [facility] Automated lymphocyte count a s percentage of total leukocytesOrdered By: Safia Ruelas on 10-08-2024 Lymphocytes/100 WBC Auto (Unsp spec) 29.4 % 19-41 [facility] BUN/creatinine ratioOrdered By: Safia Ruelas on 10-08-2024 Urea nitrogen/Creatinine [Mass ratio] 34.1 mg/mg High 10-20 [facility] Basophil percentageOrdered B y: Safia Ruelas on 10-08-2024 Basophils/100 WBC (Bld) 0.7 % 0-1 [facility] Carbon dioxide, total [Moles /volume] in Central venous bloodOrdered By: Safia Ruelas on 10-08-2024 CO2 [Moles/Vol] 24.0 mmol/L 21.0-32.0 [facility] Chloride assayOrdered By: Balbir Ruelas on 10-08-2024 Chloride [Moles/Vol] 100 mmol/L 98-108 [facility] Eosinophil percentageOrdered By: Safia Ruelas on 10-08-2024 Eosinophils/100 WBC (Bld) 2.6 % 0-5 [facility] Erythrocyte distribution wid th ratioOrdered By: Safia Ruelas on 10-08-2024 Erythrocyte distribution width (RBC) [Ratio] 13.2 % 11.6-14.6 [facility] Erythrocyte distribution wid th standard deviationOrdered By: Safia Ruelas on 10-08-2024 Erythrocyte distribution width (RBC) [Ratio] 45.3 fl High 35.1-43.9 [facility] Glomerular filtration rate ( GFR) estimation/1.73 sq m using serum, plasma, or whole bOrdered By: Safia Ruelas on 10-08-2024 GFR/1.73 sq M.predicted among non-blacks MDRD (S/P/Bld) [Vol rate/Area] 65 mL/min/{1.73_m2} >60 [facility] Comment on above: mL/min/1.73m2 CKD-EP I Creatinine Equation (2020) Hematocrit Auto (Bld) [Volum e fraction]Ordered By: Safia Ruelas on 10-08-2024 Hematocrit (Bld) [Volume fraction] 41.7 % 37-47 [facility] Hemoglobin measurementOrdere d By: Safia Ruelas on 10-08-2024 Hemoglobin (Bld) [Mass/Vol] 13.3 g/dL 12.0-15.0 [facility] Immature granulocytes/100 WB C Auto (Bld)Ordered By: jean marieatlantaskye Ruelas on 10-08-2024 Immature granulocytes/100 WBC (Bld) 0.400 % 0.0-0.9 [facility] Comment on above: IG% - Immature Granu locytes (promyelocytes, myelocytes and metamyelocytes) > 1% indicates that a LEFT SHIFT is Present. MCV (mean corpuscular volume ) determinationOrdered By: Safia Ruelas on 10-08-2024 MCV (RBC) [Entitic vol] 92.7 fL 81-99 [facility] Mean corpuscular hemoglobin (MCH) determinationOrdered By: Safia Ruelas on 10-08-2024 MCH (RBC) [Entitic mass] 29.6 pg 27.0-32.0 [facility] Mean corpuscular hemoglobin concentration (MCHC) determinationOrdered By: Safia Ruelas on 10-08-2024 MCHC (RBC) [Mass/Vol] 31.9 g/dL Low 32-36 [facility] Mean platelet volume determi nationOrdered By: Safia Ruelas on 10-08-2024 Platelet mean volume (Bld) [Entitic vol] 11.0 fL 6.2-12.0 [facility] Monocyte percentageOrdered B y: Safia Ruelas on 10-08-2024 Monocytes/100 WBC (Bld) 9.2 % 0-10 [facility] Neutrophil percentageOrdered By: Safia Ruelas on 10-08-2024 Neutrophils/100 WBC (Bld) 57.7 % 47-70 [facility] Nucleated red blood cell per centageOrdered By: Safia Ruelas on 10-08-2024 Nucleated RBC/100 WBC (Bld) [Ratio] 0 % 0-5 [facility] Platelet countOrdered By: Balbir Ruelas on 10-08-2024 Platelets (Bld) [#/Vol] 323 10*3/uL 150-450 [facility] Potassium measurement (mass/ volume)Ordered By: Safia Ruelas on 10-08-2024 Potassium (Unsp spec) [Mass/Vol] 4.1 mmol/L 3.3-5.1 [facility] RBC Auto (Bld) [#/Vol]Ordere d By: Safia Ruelas on 10-08-2024 RBC (Bld) [#/Vol] 4.50 10*6/uL 4.2-5.4 [facility] Serum creatinine measurement (mass/volume)Ordered By: Safia Ruelas on 10-08-2024 Creatinine [Mass/Vol] 0.90 mg/dL 0.70-1.20 [facility] Serum glucose measurement (m ass/volume)Ordered By: Safia Ruelas on 10-08-2024 Glucose [Mass/Vol] 82 mg/dL 70-99 [facility] Serum or plasma calcium dayna urement (mass/volume)Ordered By: Safia Ruelas on 10-08-2024 Calcium [Mass/Vol] 9.6 mg/dL 7.6-11.0 [facility] Serum or plasma urea nitroge n measurement (mass/volume)Ordered By: Safia Ruelas on 10-08-2024 Urea nitrogen [Mass/Vol] 31 mg/dL High 4-19 [facility] Sodium levelOrdered By: Leonides Ruelas on 10-08-2024 Sodium [Moles/Vol] 138 mmol/L 133-145 [facility] White blood cell (WBC) count Ordered By: Safia Ruelas on 10-08-2024 WBC (Bld) [#/Vol] 8.6 10*3/uL 4.4-11.0 [facility] 12 Lead EKG performed by [facility] [place] on 10-02-2024 12 Lead EKG performed by [facility] [address] [place] [address] 12 Lead EKG performed by [facility] [place] 10/02/24920 MR#: [id number] Acct: [id number] Name: LINDSAY ACUNA Rep #: [id number] : 1945 78 From: Mj Benavides MD Attending Dr: Dr. Mj Benavides MD Status: DEP A MB Ordering Dr: Mj Benavides MD Date: 10/02/24 Location: [facility] [place] Sex: F C Admitted: BMS/12 Lead EKG performed by [facility] [place] ECG Report Interpretation ---Atrial fibrillation -irregular conduction -Old anterior infarct. ABNORMAL Electronically signed on 10/02/2024 at 16:06 by Mj Benavides [employer] Version [id number] 10/02/24 1608 Date Mj Benavides MD CC: Dr. Kameron Caruso MD Date Dictated: 10/02/24920 Date Transcribed: 10/02/24920 Central Scheduler: [place] Signed Normal [facility] Cardiology Visit Reporton Cardiology Visit Report [facility] [address] [place] [address] OFFICE VISIT Date of Service: 10/02/24 MR#: [id number] Acct: [id number] Name: LINDSAY ACUNA Rep #: [id number] : 1945 Provider: Dr. Mj Benavides MD Age/Sex: 78/F Location: [facility] Status: Signed HPI HPI History of Present [...] now she is currently domiciled in a long-term. 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 Normal [facility] Absolute lymphocyte countOrd ered By: Safia Ruelas on 10-01-2024 Lymphocytes Auto (Unsp spec) [#/Vol] 2.45 10*3/uL 0.83-4.51 [facility] Absolute neutrophil countOrd ered By: Safia Griderbonimelanie on 10-01-2024 Neutrophils (Bld) [#/Vol] 6.5 10*3/uL 2.0-7.7 [facility] Anion gap in Serum or Plasma Ordered By: Safia Ruelas on 10-01-2024 Anion gap [Moles/Vol] 12 mmol/L 5- [facility] Automated lymphocyte count a s percentage of total leukocytesOrdered By: Safia Ruelas on 10-01-2024 Lymphocytes/100 WBC Auto (Unsp spec) 23.1 % 19- [facility] BUN/creatinine ratioOrdered By: Safia Ruelas on 10-01-2024 Urea nitrogen/Creatinine [Mass ratio] 24.9 mg/mg High 10- [facility] Basophil percentageOrdered B y: Safia Ruelas on 10-01-2024 Basophils/100 WBC (Bld) 0.5 % 0-1 [facility] Carbon dioxide, total [Moles /volume] in Central venous bloodOrdered By: Safia Ruelas on 10-01-2024 CO2 [Moles/Vol] 24.4 mmol/L 21.0-32.0 [facility] Chloride assayOrdered By: Balbir Ruelas on 10-01-2024 Chloride [Moles/Vol] 99 mmol/L 98-108 [facility] Eosinophil percentageOrdered By: sherry Ruelas on 10-01-2024 Eosinophils/100 WBC (Bld) 2.0 % 0-5 [facility] Erythrocyte distribution wid th ratioOrdered By: Safia Ruelas on 10-01-2024 Erythrocyte distribution width (RBC) [Ratio] 13.5 % 11.6-14.6 [facility] Erythrocyte distribution wid th standard deviationOrdered By: Safia Ruelas on 10-01-2024 Erythrocyte distribution width (RBC) [Ratio] 46.2 fl High 35.1-43.9 [facility] Glomerular filtration rate ( GFR) estimation/1.73 sq m using serum, plasma, or whole bOrdered By: Safia Ruelas on 10-01-2024 GFR/1.73 sq M.predicted among non-blacks MDRD (S/P/Bld) [Vol rate/Area] 63 mL/min/{1.73_m2} >60 [facility] Comment on above: mL/min/1.73m2 CKD-EP I Creatinine Equation (2020) Hematocrit Auto (Bld) [Volum e fraction]Ordered By: Safia Ruelas on 10-01-2024 Hematocrit (Bld) [Volume fraction] 38.7 % 37-47 [facility] Hemoglobin measurementOrdere d By: Safia Ruelas on 10-01-2024 Hemoglobin (Bld) [Mass/Vol] 12.5 g/dL 12.0-15.0 [facility] Immature granulocytes/100 WB C Auto (Bld)Ordered By: Safia Ruelas on 10-01-2024 Immature granulocytes/100 WBC (Bld) 0.800 % 0.0-0.9 [facility] Comment on above: IG% - Immature Granu locytes (promyelocytes, myelocytes and metamyelocytes) > 1% indicates that a LEFT SHIFT is Present. MCV (mean corpuscular volume ) determinationOrdered By: Safia Ruelas on 10-01-2024 MCV (RBC) [Entitic vol] 93.3 fL 81-99 [facility] Mean corpuscular hemoglobin (MCH) determinationOrdered By: Safia Ruelas on 10-01-2024 MCH (RBC) [Entitic mass] 30.1 pg 27.0-32.0 [facility] Mean corpuscular hemoglobin concentration (MCHC) determinationOrdered By: Leonidesatlantaskye Ruelas on 10-01-2024 MCHC (RBC) [Mass/Vol] 32.3 g/dL 32-36 [facility] Mean platelet volume determi nationOrdered By: Safia Ruelas on 10-01-2024 Platelet mean volume (Bld) [Entitic vol] 11.7 fL 6.2-12.0 [facility] Monocyte percentageOrdered B y: Safia Ruelas on 10-01-2024 Monocytes/100 WBC (Bld) 12.7 % High 0-10 [facility] Neutrophil percentageOrdered By: Safia Cheoquyen on 10-01-2024 Neutrophils/100 WBC (Bld) 60.9 % 47-70 [facility] Nucleated red blood cell per centageOrdered By: Safia Cheoquyen on 10-01-2024 Nucleated RBC/100 WBC (Bld) [Ratio] 0 % 0-5 [facility] Platelet countOrdered By: Balbir sherry Cheoquyen on 10-01-2024 Platelets (Bld) [#/Vol] 371 10*3/uL 150-450 [facility] Potassium measurement (mass/ volume)Ordered By: Safia Griderbonimelanie on 10-01-2024 Potassium (Unsp spec) [Mass/Vol] 4.2 mmol/L 3.3-5.1 [facility] RBC Auto (Bld) [#/Vol]Ordere d By: Safia Ruelas on 10-01-2024 RBC (Bld) [#/Vol] 4.15 10*6/uL Low 4.2-5.4 [facility] Serum creatinine measurement (mass/volume)Ordered By: Balbirsherry Griderbonimelanie on 10-01-2024 Creatinine [Mass/Vol] 0.93 mg/dL 0.70-1.20 [facility] Serum glucose measurement (m ass/volume)Ordered By: Balbirjean mariedesireeskye Griderbonimelanie on 10-01-2024 Glucose [Mass/Vol] 93 mg/dL 70-99 [facility] Serum or plasma calcium dayna urement (mass/volume)Ordered By: Balbirjean mariejosé antonio Cheobonimelanie on 10-01-2024 Calcium [Mass/Vol] 9.5 mg/dL 7.6-11.0 [facility] Serum or plasma urea nitroge n measurement (mass/volume)Ordered By: Safia Griderbonimelanie on 10-01-2024 Urea nitrogen [Mass/Vol] 23 mg/dL High 4-19 [facility] Sodium levelOrdered By: Leonides josé antonio Jessenia on 10-01-2024 Sodium [Moles/Vol] 135 mmol/L 133-145 [facility] White blood cell (WBC) count Ordered By: Leonidesdesireeskye Ruelas on 10-01-2024 WBC (Bld) [#/Vol] 10.6 10*3/uL 4.4-11.0 [facility] Clostridium difficile detect ion by polymerase chain reactionOrdered By: Safia Ruelas on 09-29-2024 C. difficile DNA CHUCKY+probe Ql (Unsp spec) [facility] Absolute lymphocyte countOrd ered By: Safia Ruelas on 09-24-2024 Lymphocytes Auto (Unsp spec) [#/Vol] 2.72 10*3/uL 0.83-4.51 [facility] Absolute neutrophil countOrd ered By: Safia Griderbonimelanie on 09-24-2024 Neutrophils (Bld) [#/Vol] 6.3 10*3/uL 2.0-7.7 [facility] Anion gap in Serum or Plasma Ordered By: Safia Ruelas on 09-24-2024 Anion gap [Moles/Vol] 12 mmol/L 5-15 [facility] Automated lymphocyte count a s percentage of total leukocytesOrdered By: Safia Ruelas on 09-24-2024 Lymphocytes/100 WBC Auto (Unsp spec) 26.3 % 19-41 [facility] BUN/creatinine ratioOrdered By: Safia Ruelas on 09-24-2024 Urea nitrogen/Creatinine [Mass ratio] 36.4 mg/mg High 10-20 [facility] Basophil percentageOrdered B y: Safia Ruelas on 09-24-2024 Basophils/100 WBC (Bld) 0.7 % 0-1 [facility] Carbon dioxide, total [Moles /volume] in Central venous bloodOrdered By: Safia Ruelas on 09-24-2024 CO2 [Moles/Vol] 24.1 mmol/L 21.0-32.0 [facility] Chloride assayOrdered By: Balbir Ruelas on 09-24-2024 Chloride [Moles/Vol] 100 mmol/L 98-108 [facility] Eosinophil percentageOrdered By: Safia Ruelas on 09-24-2024 Eosinophils/100 WBC (Bld) 2.7 % 0-5 [facility] Erythrocyte distribution wid th ratioOrdered By: Safia Ruelas on 09-24-2024 Erythrocyte distribution width (RBC) [Ratio] 13.6 % 11.6-14.6 [facility] Erythrocyte distribution wid th standard deviationOrdered By: Safia Ruelas on 09-24-2024 Erythrocyte distribution width (RBC) [Ratio] 47.1 fl High 35.1-43.9 [facility] Glomerular filtration rate ( GFR) estimation/1.73 sq m using serum, plasma, or whole bOrdered By: Safia Ruelas on 09-24-2024 GFR/1.73 sq M.predicted among non-blacks MDRD (S/P/Bld) [Vol rate/Area] 62 mL/min/{1.73_m2} >60 [facility] Comment on above: mL/min/1.73m2 CKD-EP I Creatinine Equation (2020) Hematocrit Auto (Bld) [Volum e fraction]Ordered By: Safia Ruelas on 09-24-2024 Hematocrit (Bld) [Volume fraction] 41.2 % 37-47 [facility] Hemoglobin measurementOrdere d By: Safia Ruelas on 09-24-2024 Hemoglobin (Bld) [Mass/Vol] 13.0 g/dL 12.0-15.0 [facility] Immature granulocytes/100 WB C Auto (Bld)Ordered By: Safia Ruelas on 09-24-2024 Immature granulocytes/100 WBC (Bld) 1.000 % High 0.0-0.9 [facility] Comment on above: IG% - Immature Granu locytes (promyelocytes, myelocytes and metamyelocytes) > 1% indicates that a LEFT SHIFT is Present. MCV (mean corpuscular volume ) determinationOrdered By: Safia Ruelas on 09-24-2024 MCV (RBC) [Entitic vol] 94.3 fL 81-99 [facility] Mean corpuscular hemoglobin (MCH) determinationOrdered By: Safia Ruelas on 09-24-2024 MCH (RBC) [Entitic mass] 29.7 pg 27.0-32.0 [facility] Mean corpuscular hemoglobin concentration (MCHC) determinationOrdered By: Safia Ruelas on 09-24-2024 MCHC (RBC) [Mass/Vol] 31.6 g/dL Low 32-36 [facility] Mean platelet volume determi nationOrdered By: Safia Ruelas on 09-24-2024 Platelet mean volume (Bld) [Entitic vol] 11.3 fL 6.2-12.0 [facility] Monocyte percentageOrdered B y: Safia uRelas on 09-24-2024 Monocytes/100 WBC (Bld) 8.9 % 0-10 [facility] Neutrophil percentageOrdered By: Leonidesatlantaskye Ruelas on 09-24-2024 Neutrophils/100 WBC (Bld) 60.4 % 47-70 [facility] Nucleated red blood cell per centageOrdered By: Safia Ruelas on 09-24-2024 Nucleated RBC/100 WBC (Bld) [Ratio] 0 % 0-5 [facility] Platelet countOrdered By: Balbir Ruelas on 09-24-2024 Platelets (Bld) [#/Vol] 441 10*3/uL 150-450 [facility] Potassium measurement (mass/ volume)Ordered By: Safia Ruelas on 09-24-2024 Potassium (Unsp spec) [Mass/Vol] 4.3 mmol/L 3.3-5.1 [facility] RBC Auto (Bld) [#/Vol]Ordere d By: Safia Ruelas on 09-24-2024 RBC (Bld) [#/Vol] 4.37 10*6/uL 4.2-5.4 [facility] Serum creatinine measurement (mass/volume)Ordered By: Safia Ruelas on 09-24-2024 Creatinine [Mass/Vol] 0.93 mg/dL 0.70-1.20 [facility] Serum glucose measurement (m ass/volume)Ordered By: Safia Ruelas on 09-24-2024 Glucose [Mass/Vol] 48 mg/dL Low 70-99 [facility] Serum or plasma calcium dayna urement (mass/volume)Ordered By: Balbirjean mariejosé antonio Cheobonimelanie on 09-24-2024 Calcium [Mass/Vol] 9.5 mg/dL 7.6-11.0 [facility] Serum or plasma urea nitroge n measurement (mass/volume)Ordered By: Safia Ruelas on 09-24-2024 Urea nitrogen [Mass/Vol] 34 mg/dL High 4-19 [facility] Sodium levelOrdered By: Leonides chou Cheobonimelanie on 09-24-2024 Sodium [Moles/Vol] 136 mmol/L 133-145 [facility] White blood cell (WBC) count Ordered By: Safia Ruelas on 09-24-2024 WBC (Bld) [#/Vol] 10.4 10*3/uL 4.4-11.0 [facility] Absolute lymphocyte countOrd ered By: Safia Ruelas on 09-17-2024 Lymphocytes Auto (Unsp spec) [#/Vol] 2.52 10*3/uL 0.83-4.51 [facility] Absolute neutrophil countOrd ered By: Safia Ruelas on 09-17-2024 Neutrophils (Bld) [#/Vol] 5.8 10*3/uL 2.0-7.7 [facility] Anion gap in Serum or Plasma Ordered By: Safia Ruelas on 09-17-2024 Anion gap [Moles/Vol] 12 mmol/L 5-15 [facility] Automated lymphocyte count a s percentage of total leukocytesOrdered By: Safia Ruelas on 09-17-2024 Lymphocytes/100 WBC Auto (Unsp spec) 26.3 % 19-41 [facility] BUN/creatinine ratioOrdered By: Balbirsherry Ruelas on 09-17-2024 Urea nitrogen/Creatinine [Mass ratio] 45.9 mg/mg High 10-20 [facility] Basophil percentageOrdered B y: Safia Ruelas on 09-17-2024 Basophils/100 WBC (Bld) 0.6 % 0-1 [facility] Calculated very low density lipoprotein (VLDL) cholesterol measurementOrdered By: Safia Ruelas on 09-17-2024 Calculated very low density lipoprotein (VLDL) cholesterol measurement 22 mg/dL 5-40 [facility] Carbon dioxide, total [Moles /volume] in Central venous bloodOrdered By: Safia Ruelas on 09-17-2024 CO2 [Moles/Vol] 24.5 mmol/L 21.0-32.0 [facility] Chloride assayOrdered By: Balbir Ruelas on 09-17-2024 Chloride [Moles/Vol] 98 mmol/L 98-108 [facility] Eosinophil percentageOrdered By: Safia Ruelas on 09-17-2024 Eosinophils/100 WBC (Bld) 3.2 % 0-5 [facility] Erythrocyte distribution wid th ratioOrdered By: jean marieatlantaskye Ruelas on 09-17-2024 Erythrocyte distribution width (RBC) [Ratio] 13.4 % 11.6-14.6 [facility] Erythrocyte distribution wid th standard deviationOrdered By: Safia Ruelas on 09-17-2024 Erythrocyte distribution width (RBC) [Ratio] 45.4 fl High 35.1-43.9 [facility] Glomerular filtration rate ( GFR) estimation/1.73 sq m using serum, plasma, or whole bOrdered By: Safia Ruelas on 09-17-2024 GFR/1.73 sq M.predicted among non-blacks MDRD (S/P/Bld) [Vol rate/Area] 69 mL/min/{1.73_m2} >60 [facility] Comment on above: mL/min/1.73m2 CKD-EP I Creatinine Equation (2020) Hematocrit Auto (Bld) [Volum e fraction]Ordered By: Safia Ruelas on 09-17-2024 Hematocrit (Bld) [Volume fraction] 38.8 % 37-47 [facility] Hemoglobin measurementOrdere d By: Safia Ruelas on 09-17-2024 Hemoglobin (Bld) [Mass/Vol] 12.6 g/dL 12.0-15.0 [facility] Immature granulocytes/100 WB C Auto (Bld)Ordered By: Safia Ruelas on 09-17-2024 Immature granulocytes/100 WBC (Bld) 0.700 % 0.0-0.9 [facility] Comment on above: IG% - Immature Granu locytes (promyelocytes, myelocytes and metamyelocytes) > 1% indicates that a LEFT SHIFT is Present. LDL calc ser/plasOrdered By: Safia Ruelas on 09-17-2024 Cholesterol in LDL [Mass/Vol] 120 mg/dL [facility] Comment on above: Gdyettsjra=258-816 m g/dL & Higher Haxn=776 mg/dL or greater MCV (mean corpuscular volume ) determinationOrdered By: Safia Ruelas on 09-17-2024 MCV (RBC) [Entitic vol] 91.7 fL 81-99 [facility] Mean corpuscular hemoglobin (MCH) determinationOrdered By: Leonidesatlantaskye Ruelas on 09-17-2024 MCH (RBC) [Entitic mass] 29.8 pg 27.0-32.0 [facility] Mean corpuscular hemoglobin concentration (MCHC) determinationOrdered By: Safia Ruelas on 09-17-2024 MCHC (RBC) [Mass/Vol] 32.5 g/dL 32-36 [facility] Mean platelet volume determi nationOrdered By: Safia Ruelas on 09-17-2024 Platelet mean volume (Bld) [Entitic vol] 11.4 fL 6.2-12.0 [facility] Monocyte percentageOrdered B y: Safia Ruelas on 09-17-2024 Monocytes/100 WBC (Bld) 8.5 % 0-10 [facility] Neutrophil percentageOrdered By: jean marieatlantaskye Ruelas on 09-17-2024 Neutrophils/100 WBC (Bld) 60.7 % 47-70 [facility] Nucleated red blood cell per centageOrdered By: Safia Ruelas on 09-17-2024 Nucleated RBC/100 WBC (Bld) [Ratio] 0 % 0-5 [facility] Platelet countOrdered By: Balbir Ruelas on 09-17-2024 Platelets (Bld) [#/Vol] 311 10*3/uL 150-450 [facility] Potassium measurement (mass/ volume)Ordered By: Safia Ruelas on 09-17-2024 Potassium (Unsp spec) [Mass/Vol] 4.1 mmol/L 3.3-5.1 [facility] RBC Auto (Bld) [#/Vol]Ordere d By: Safia Ruelas on 09-17-2024 RBC (Bld) [#/Vol] 4.23 10*6/uL 4.2-5.4 [facility] Screening total cholesterol/ high density lipoprotein (HDL) cholesterol ratioOrdered By: Safia Ruelas on 09-17-2024 Cholesterol.total/Alta sterol in HDL [Mass ratio] 5.38 {ratio} [facility] Serum creatinine measurement (mass/volume)Ordered By: Safia Ruelas on 09-17-2024 Creatinine [Mass/Vol] 0.86 mg/dL 0.70-1.20 [facility] Serum glucose measurement (m ass/volume)Ordered By: Safia Ruelas on 09-17-2024 Glucose [Mass/Vol] 216 mg/dL High 70-99 [facility] Serum or plasma calcium dayna urement (mass/volume)Ordered By: Safia Ruelas on 09-17-2024 Calcium [Mass/Vol] 9.4 mg/dL 7.6-11.0 [facility] Serum or plasma cholesterol in HDL measurement (mass/volume)Ordered By: Safia Ruelas on 09-17-2024 Cholesterol in HDL [Mass/Vol] 33 mg/dL Low >40 [facility] Comment on above: National Cholesterol Education Program (NCEP) guidelines:<40 mg/dL: Low HDL-cholesterol (major risk factor for CHD)>= 60 mg/dL: High HDL-cholesterol (negative risk factor for CHD)HDL-cholesterol is affected by a number of factors, e.g. smoking, exercise, hormones, sex and age. Serum or plasma cholesterol measurement (mass/volume)Ordered By: Safia Ruelas on 09-17-2024 Cholesterol [Mass/Vol] 175 mg/dL <201 [facility] Comment on above: Cholesterol level, D esirable <200 mg/dLBorderline high cholesterol 200-239 mg/dLHigh cholesterol >=240 mg/dLRecommendations of the NCEP Adult Treatment Panel for the following risk-cutoff thresholds for the [place] population. Serum or plasma urea nitroge n measurement (mass/volume)Ordered By: Safia Ruelas on 09-17-2024 Urea nitrogen [Mass/Vol] 39 mg/dL High 4-19 [facility] Sodium levelOrdered By: Leonides jiméneztadmelanie Ruelas on 09-17-2024 Sodium [Moles/Vol] 134 mmol/L 133-145 [facility] TSH DL <= 0.005 mIU/L QnOrde red By: Safia Ruelas on 09-17-2024 TSH Qn 3.500 uIU/mL 0.300-4.200 [facility] Triglycerides measurementOrd ered By: Safia Ruelas on 09-17-2024 Triglyceride [Mass/Vol] 111 mg/dL <199 [facility] Comment on above: The drugs N-Acetylcy steine and Metamizole may falsely depress this assay. Normal range: <150 mg/dLBorderline High: 150-199 mg/dLHigh: 200-499 mg/dLVery High: >500 mg/dL White blood cell (WBC) count Ordered By: Safia Ruelas on 09-17-2024 WBC (Bld) [#/Vol] 9.6 10*3/uL 4.4-11.0 [facility] Absolute lymphocyte countOrd ered By: Safia Ruelas on 09-10-2024 Lymphocytes Auto (Unsp spec) [#/Vol] 2.11 10*3/uL 0.83-4.51 [facility] Absolute neutrophil countOrd ered By: Safia Ruelas on 09-10-2024 Neutrophils (Bld) [#/Vol] 8.1 10*3/uL High 2.0-7.7 [facility] Anion gap in Serum or Plasma Ordered By: Safia Ruelas on 09-10-2024 Anion gap [Moles/Vol] 13 mmol/L 5-15 [facility] Automated lymphocyte count a s percentage of total leukocytesOrdered By: Safia Ruelas on 09-10-2024 Lymphocytes/100 WBC Auto (Unsp spec) 17.9 % Low 19-41 [facility] BUN/creatinine ratioOrdered By: Safia Ruelas on 09-10-2024 Urea nitrogen/Creatinine [Mass ratio] 29.1 mg/mg High 10-20 [facility] Basophil percentageOrdered B y: Safia Ruelas on 09-10-2024 Basophils/100 WBC (Bld) 0.3 % 0-1 [facility] Bilirubin, totalOrdered By: Safia Cheobonimelanie on 09-10-2024 Bilirubin [Mass/Vol] 0.55 mg/dL 0.00-1.30 [facility] Carbon dioxide, total [Moles /volume] in Central venous bloodOrdered By: Balbirjean mariedesireeskye Griderbonimelanie on 09-10-2024 CO2 [Moles/Vol] 23.6 mmol/L 21.0-32.0 [facility] Chloride assayOrdered By: Balbir sherry Cheobonimelanie on 09-10-2024 Chloride [Moles/Vol] 97 mmol/L Low 98-108 [facility] Eosinophil percentageOrdered By: Safia Ruelas on 09-10-2024 Eosinophils/100 WBC (Bld) 0.5 % 0-5 [facility] Erythrocyte distribution wid th ratioOrdered By: Balbirjean mariejosé antonio Westonmelanie on 09-10-2024 Erythrocyte distribution width (RBC) [Ratio] 13.4 % 11.6-14.6 [facility] Erythrocyte distribution wid th standard deviationOrdered By: Leonidesdesireeskye Griderbonimelanie on 09-10-2024 Erythrocyte distribution width (RBC) [Ratio] 45.2 fl High 35.1-43.9 [facility] Glomerular filtration rate ( GFR) estimation/1.73 sq m using serum, plasma, or whole bOrdered By: Balbirjean mariedesireeskye Griderbonimelanie on 09-10-2024 GFR/1.73 sq M.predicted among non-blacks MDRD (S/P/Bld) [Vol rate/Area] 59 mL/min/{1.73_m2} Low >60 [facility] Comment on above: mL/min/1.73m2 CKD-EP I Creatinine Equation (2020) Hematocrit Auto (Bld) [Volum e fraction]Ordered By: Safia Ruelas on 09-10-2024 Hematocrit (Bld) [Volume fraction] 41.8 % 37-47 [facility] Hemoglobin measurementOrdere d By: Safia Ruelas on 09-10-2024 Hemoglobin (Bld) [Mass/Vol] 13.4 g/dL 12.0-15.0 [facility] Immature granulocytes/100 WB C Auto (Bld)Ordered By: Safia Ruelas on 09-10-2024 Immature granulocytes/100 WBC (Bld) 0.800 % 0.0-0.9 [facility] Comment on above: IG% - Immature Granu locytes (promyelocytes, myelocytes and metamyelocytes) > 1% indicates that a LEFT SHIFT is Present. Laboratory - Chemistry and C hemistry - challengeOrdered By: Safia Ruelas on 09-10-2024 AST [Catalytic activity/Vol] 21 U/L <32 [facility] MCV (mean corpuscular volume ) determinationOrdered By: Safia Ruelas on 09-10-2024 MCV (RBC) [Entitic vol] 92.5 fL 81-99 [facility] Mean corpuscular hemoglobin (MCH) determinationOrdered By: Safia Ruelas on 09-10-2024 MCH (RBC) [Entitic mass] 29.6 pg 27.0-32.0 [facility] Mean corpuscular hemoglobin concentration (MCHC) determinationOrdered By: Safia Ruelas on 09-10-2024 MCHC (RBC) [Mass/Vol] 32.1 g/dL 32-36 [facility] Mean platelet volume determi nationOrdered By: Safia Ruelas on 09-10-2024 Platelet mean volume (Bld) [Entitic vol] 12.6 fL High 6.2-12.0 [facility] Monocyte percentageOrdered B y: Safia Ruelas on 09-10-2024 Monocytes/100 WBC (Bld) 12.3 % High 0-10 [facility] Neutrophil percentageOrdered By: Safia Ruelas on 09-10-2024 Neutrophils/100 WBC (Bld) 68.2 % 47-70 [facility] No Panel InformationOrdered By: Safia Ruelas on 09-10-2024 21 U/L <32 [facility] Nucleated red blood cell per centageOrdered By: Safia Ruelas on 09-10-2024 Nucleated RBC/100 WBC (Bld) [Ratio] 0 % 0-5 [facility] Platelet countOrdered By: Balbir Ruelas on 09-10-2024 Platelets (Bld) [#/Vol] 190 10*3/uL 150-450 [facility] Potassium measurement (mass/ volume)Ordered By: Safia Ruelas on 09-10-2024 Potassium (Unsp spec) [Mass/Vol] 4.3 mmol/L 3.3-5.1 [facility] RBC Auto (Bld) [#/Vol]Ordere d By: Safia Ruelas on 09-10-2024 RBC (Bld) [#/Vol] 4.52 10*6/uL 4.2-5.4 [facility] Serum creatinine measurement (mass/volume)Ordered By: Safia Ruelas on 09-10-2024 Creatinine [Mass/Vol] 0.98 mg/dL 0.70-1.20 [facility] Serum globulin measurementOr dered By: Safia Ruelas on 09-10-2024 Globulin (S) [Mass/Vol] 3.3 g/dL 2.2-4.2 [facility] Serum glucose measurement (m ass/volume)Ordered By: Safia Ruelas on 09-10-2024 Glucose [Mass/Vol] 181 mg/dL High 70-99 [facility] Serum or plasma alanine raymundo otransferase (ALT) measurementOrdered By: Safia Ruelas 09-10-2024 ALT [Catalytic activity/Vol] 26 U/L <35 [facility] Serum or plasma albumin dayna urement (mass/volume)Ordered By: Safia Ruelas 09-10-2024 Albumin [Mass/Vol] 3.4 g/dL 3.4-4.8 [facility] Serum or plasma albumin/glob ulin mass ratioOrdered By: Balbirsherry Ruelas on 09-10-2024 Albumin/Globulin [Mass ratio] 1.0 {ratio} 0.9-2.4 [facility] Serum or plasma alkaline hannah sphatase measurementOrdered By: Balbirsherry Griderbonimelanie on 09-10-2024 ALP [Catalytic activity/Vol] 114 U/L High 35-104 [facility] Serum or plasma calcium dayna urement (mass/volume)Ordered By: Safia Ruelas on 09-10-2024 Calcium [Mass/Vol] 9.3 mg/dL 7.6-11.0 [facility] Serum or plasma urea nitroge n measurement (mass/volume)Ordered By: Balbirsherry Ruelas on 09-10-2024 Urea nitrogen [Mass/Vol] 29 mg/dL High 4-19 [facility] Sodium levelOrdered By: Leonides josé antonio Jessenia on 09-10-2024 Sodium [Moles/Vol] 133 mmol/L 133-145 [facility] Total proteinOrdered By: Augustomelanie ervin Jessenia on 09-10-2024 Protein [Mass/Vol] 6.7 g/dL 5.9-8.4 [facility] White blood cell (WBC) count Ordered By: Balbirjean mariedesireeskye Ruelas on 09-10-2024 WBC (Bld) [#/Vol] 11.8 10*3/uL High 4.4-11.0 [facility] LABORATORYOrdered By: Abigail Smith on 09-09-2024 Glucose [Mass/Vol] 212 mg/dL High 82 - 115 mg/dL [employer] Work Phone: Glucose [Mass/Vol] 226 mg/dL High 82 - 115 mg/dL [employer] Work Phone: LABORATORYOrdered By: Zoila Zarco on 09-08-2024 Glucose [Mass/Vol] 149 mg/dL High 82 - 115 mg/dL [employer] Work Phone: LABORATORYOrdered By: Rob Palmer on 09-08-2024 Blood Glucose Testing Reason Routine (09/08/24 6:16 PM) [facility] [place] Work Phone: Blood Glucose Testing Reason Routine (09/08/24 11:58 AM) [employer] Work Phone: LABORATORYOrdered By: Rob Palmer on 09-07-2024 Blood Glucose Testing Reason Routine (09/07/24 4:46 PM) [employer] Work Phone: .Auto Diffon 09-03-2024 Basophil, Absolute 0.1 10 3/mcL Normal 0.0-0.3 [facility] Comment on above: Performed By: #### A DIFF, CBC, ANEU, GFR, BMP #### [address] [address] Basophils/100 WBC (Bld) 1.0 % Normal 0.0-2.5 [facility] Comment on above: Performed By: #### A DIFF, CBC, ANEU, GFR, BMP #### [address] [address] Eosinophil, Absolute 0.2 10 3/mcL Normal 0.0-0.7 [facility] Comment on above: Performed By: #### A DIFF, CBC, ANEU, GFR, BMP #### [address] [address] Eosinophils/100 WBC (Bld) 3.2 % Normal 0.0-6.0 [facility] Comment on above: Performed By: #### A DIFF, CBC, ANEU, GFR, BMP #### [address] [address] Lymphocyte, Absolute 2.0 10 3/mcL Normal 0.9-4.3 [facility] Comment on above: Performed By: #### A DIFF, CBC, ANEU, GFR, BMP #### [address] [address] Lymphocytes/100 WBC (Bld) 26.6 % Normal 20.0-40.0 [facility] Comment on above: Performed By: #### A DIFF, CBC, ANEU, GFR, BMP #### [address] [address] Monocyte, Absolute 0.7 10 3/mcL Normal 0.1-1.4 [facility] Comment on above: Performed By: #### A DIFF, CBC, ANEU, GFR, BMP #### [address] [address] Monocytes/100 WBC (Bld) 9.7 % Normal 2.0-13.0 [facility] Comment on above: Performed By: #### A DIFF, CBC, ANEU, GFR, BMP #### [address] [address] Neutrophils/100 WBC (Bld) 59.5 % Normal 50.0-75.0 [facility] Comment on above: Performed By: #### A DIFF, CBC, ANEU, GFR, BMP #### [address] [address] .GFRon 09-03-2024 Estimated Glomerular Filtration Rate 57 ml/min/1.73sqm Normal [facility] Comment on above: Result [...] A DIFF, CBC, ANEU, GFR, BMP #### [address] [address] .NEUABSon 09-03-2024 Neutrophil, Absolute 4.5 10 3/mcL Normal 2.3-8.1 [facility] Comment on above: Performed By: #### A DIFF, CBC, ANEU, GFR, BMP #### [address] [address] B12on 09-03-2024 Cobalamin (Vitamin B12) [Mass/Vol] 834 pg/mL Normal 211-911 [facility] Comment on above: Performed By: #### A DIFF, CBC, ANEU, GFR, BMP #### [place] [address] CBCon 09-03-2024 Erythrocyte distribution width (RBC) [Ratio] 14.7 % Normal 11.5-15.5 [facility] Comment on above: Performed By: #### A DIFF, CBC, ANEU, GFR, BMP #### [place] [address] Hematocrit (Bld) [Volume fraction] 39.7 % Normal 34.0-46.0 [facility] Comment on above: Performed By: #### A DIFF, CBC, ANEU, GFR, BMP #### [place] [address] Hgb 13.2 G/dL Normal 12.0-16.0 [facility] Comment on above: Performed By: #### A DIFF, CBC, ANEU, GFR, BMP #### [place] [address] MCH (RBC) [Entitic mass] 30.6 pg Normal 27.0-33.0 [facility] Comment on above: Performed By: #### A DIFF, CBC, ANEU, GFR, BMP #### [place] [address] MCHC 33.3 G/dL Normal 32.0-36.0 [facility] Comment on above: Performed By: #### A DIFF, CBC, ANEU, GFR, BMP #### [place] [address] MCV (RBC) [Entitic vol] 91.9 fL Normal 80.0-99.0 [facility] Comment on above: Performed By: #### A DIFF, CBC, ANEU, GFR, BMP #### [place] [id number] Platelet 228 10 3/mcL Normal 150-450 [facility] Comment on above: Performed By: #### A DIFF, CBC, ANEU, GFR, BMP #### [place] [address] Platelet mean volume (Bld) [Entitic vol] 10.1 fL Normal 6.6-10.5 [facility] Comment on above: Performed By: #### A DIFF, CBC, ANEU, GFR, BMP #### [place] [address] RBC 4.32 10 6/mcL Normal 4.10-5.30 [facility] Comment on above: Performed By: #### A DIFF, CBC, ANEU, GFR, BMP #### [place] [address] WBC 7.6 10 3/mcL Normal 4.5-10.8 [facility] Comment on above: Performed By: #### A DIFF, CBC, ANEU, GFR, BMP #### [place] [address] CMPon 09-03-2024 Albumin Level 3.0 G/dL Low 3.2-4.8 [facility] Comment on above: Performed By: #### A DIFF, CBC, ANEU, GFR, BMP #### [place] [address] Albumin/Globulin [Mass ratio] 0.9 {ratio} Normal 0.9-1.6 [facility] Comment on above: Performed By: #### A DIFF, CBC, ANEU, GFR, BMP #### [place] [address] ALP [Catalytic activity/Vol] 115 U/L Normal 38-126 [facility] Comment on above: Performed By: #### A DIFF, CBC, ANEU, GFR, BMP #### [place] [address] ALT [Catalytic activity/Vol] 37 U/L Normal 10-49 [facility] Comment on above: Performed By: #### A DIFF, CBC, ANEU, GFR, BMP #### [place] [address] AST [Catalytic activity/Vol] 31 U/L Normal 8-34 [facility] Comment on above: Performed By: #### A DIFF, CBC, ANEU, GFR, BMP #### [address] [address] Bili Total 0.50 mg/dL Normal 0.20-1.20 [facility] Comment on above: Result Comment: Use of this assay is not recommended for patients undergoing treatment with eltrombopag due to the potential for falsely elevated results. Performed By: #### A DIFF, CBC, ANEU, GFR, BMP #### [place] [address] BUN/Creatinine Ratio 29.7 ratio High 10.0-22.0 [facility] Comment on above: Performed By: #### A DIFF, CBC, ANEU, GFR, BMP #### [place] [id number] Calcium [Mass/Vol] 9.6 mg/dL Normal 8.7-10.4 [facility] Comment on above: Performed By: #### A DIFF, CBC, ANEU, GFR, BMP #### [place] [address] Chloride [Moles/Vol] 101 mmol/L Normal 98-110 [facility] Comment on above: Performed By: #### A DIFF, CBC, ANEU, GFR, BMP #### [place] [address] CO2 [Moles/Vol] 27 mmol/L Normal 22-32 [facility] Comment on above: Performed By: #### A DIFF, CBC, ANEU, GFR, BMP #### [place] [address] Creatinine [Mass/Vol] 1.01 mg/dL Normal 0.50-1.20 [facility] Comment on above: Result Comment: Test ing performed on DigitalChalk analyzer using enzymatic creatinine methodology. Performed By: #### A DIFF, CBC, ANEU, GFR, BMP #### [place] [id number] Electrolyte Balance 10.0 mEq/L Normal 4.0-15.0 [facility] Comment on above: Performed By: #### A DIFF, CBC, ANEU, GFR, BMP #### [place] [id number] Globulin 3.4 G/dL Normal 1.5-3.8 [facility] Comment on above: Performed By: #### A DIFF, CBC, ANEU, GFR, BMP #### [address] [address] Glucose [Mass/Vol] 187 mg/dL High 82-115 [facility] Comment on above: Performed By: #### A DIFF, CBC, ANEU, GFR, BMP #### [address] [address] Potassium [Moles/Vol] 4.6 mmol/L Normal 3.5-5.0 [facility] Comment on above: Performed By: #### A DIFF, CBC, ANEU, GFR, BMP #### [address] [address] Sodium [Moles/Vol] 138 mmol/L Normal 136-145 [facility] Comment on above: Performed By: #### A DIFF, CBC, ANEU, GFR, BMP #### [address] [address] Total Protein 6.4 G/dL Normal 5.7-8.2 [facility] Comment on above: Performed By: #### A DIFF, CBC, ANEU, GFR, BMP #### [address] [address] Urea nitrogen [Mass/Vol] 30.0 mg/dL High 8.0-22.0 [facility] Comment on above: Performed By: #### A DIFF, CBC, ANEU, GFR, BMP #### [address] [address] LABORATORYOrdered By: Ann Carrillo on 09-03-2024 Glucose [Mass/Vol] 270 mg/dL [facility] Work Phone: LABORATORYOrdered By: SYSTEM [...] above: Interpretive Data: T esting performed on DigitalChalk analyzer using enzymatic creatinine methodology. Electrolyte Balance [...] TSHon 09-03-2024 TSH 3.920 mIU/mL Normal 0.550-4.780 [facility] Comment on above: Performed By: #### A DIFF, CBC, ANEU, GFR, BMP #### [place] [address] CT HEAD OR BRAIN W/O CONTRAS Ton [...] 09/02/2024 3:10:44 PM Ordering Provider: SILVINO PEARL [facility] [place] 08-30-2024 RANDEE Telephone (FAMPWS) LINDSAY ACUNA ([id number]) 1945 F Date Time Provider Department 08/30/24 KAMERON CARUSO During your visit today, we recorded the following information about you: Jaiden Paulino, RN 08/30/2024 9:11 AM Signed Marya- [facility] reports patient was in [facility] with dx: stroke, and transferred to [facility]. Pt will be discharged from [facility] on 09/07/[address] [facility] SN PT OT [facility]. Asking if pcp agreeable to follow for C. Please phone Marya with verbal: [phone] Mj Glover APRN.GARRETT 08/30/2024 9:19 AM Signed Please let know that Dr. Caruso's team will follow orders. Okay to proceed. Mj Glover APRN.Fouzia Reynoso LPN 08/30/2024 10:09 AM Signed Marya with [facility] notified. Allergies As of Date: 08/30/2024 Noted Allergy Reaction BENZOCAINE 07/08/2005 2 - Rash COCAINE 05/28/2008 Comments: Inverted T PERFUMES 07/08/2005 12 - Shortness of Breath Comments: coughes and chokes SULFA (SULFONAMIDE ANTIBIOTICS) 07/08/2005 5 - Intolerance Date Reviewed: 06/26/2024 Reviewed by: Bret Arambula LPN - Fully Assessed Reason for Visit: [facility] requesting verbal agree to follow [Other] [...] Status:Closed by FOUZIA MILLER on 08/30/24 Normal [facility] .Auto Diffon 08-26-2024 Basophil, Absolute 0.1 10 3/mcL Normal 0.0-0.3 [facility] Comment on above: Performed By: #### A DIFF, CBC, ANEU, GFR, BMP #### [address] [address] Basophils/100 WBC (Bld) 1.0 % Normal 0.0-2.5 [facility] Comment on above: Performed By: #### A DIFF, CBC, ANEU, GFR, BMP #### [address] [address] Eosinophil, Absolute 0.3 10 3/mcL Normal 0.0-0.7 [facility] Comment on above: Performed By: #### A DIFF, CBC, ANEU, GFR, BMP #### [address] [address] Eosinophils/100 WBC (Bld) 4.2 % Normal 0.0-6.0 [facility] Comment on above: Performed By: #### A DIFF, CBC, ANEU, GFR, BMP #### [address] [address] Lymphocyte, Absolute 2.2 10 3/mcL Normal 0.9-4.3 [facility] Comment on above: Performed By: #### A DIFF, CBC, ANEU, GFR, BMP #### [address] [address] Lymphocytes/100 WBC (Bld) 26.3 % Normal 20.0-40.0 [facility] Comment on above: Performed By: #### A DIFF, CBC, ANEU, GFR, BMP #### [address] [address] Monocyte, Absolute 0.9 10 3/mcL Normal 0.1-1.4 [facility] Comment on above: Performed By: #### A DIFF, CBC, ANEU, GFR, BMP #### [address] [address] Monocytes/100 WBC (Bld) 11.4 % Normal 2.0-13.0 [facility] Comment on above: Performed By: #### A DIFF, CBC, ANEU, GFR, BMP #### [address] [address] Neutrophils/100 WBC (Bld) 57.1 % Normal 50.0-75.0 [facility] Comment on above: Performed By: #### A DIFF, CBC, ANEU, GFR, BMP #### [address] [address] .GFRon 08-26-2024 Estimated Glomerular Filtration Rate 59 ml/min/1.73sqm Normal [facility] Comment on above: Result [...] A DIFF, CBC, ANEU, GFR, BMP #### [address] [address] .NEUABSon 08-26-2024 Neutrophil, Absolute 4.7 10 3/mcL Normal 2.3-8.1 [facility] Comment on above: Performed By: #### A DIFF, CBC, ANEU, GFR, BMP #### [address] [address] BMPon 08-26-2024 BUN/Creatinine Ratio 35.1 ratio High 10.0-22.0 [facility] Comment on above: Performed By: #### A DIFF, CBC, ANEU, GFR, BMP #### [address] [address] Calcium [Mass/Vol] 9.8 mg/dL Normal 8.7-10.4 [facility] Comment on above: Performed By: #### A DIFF, CBC, ANEU, GFR, BMP #### [address] [address] Chloride [Moles/Vol] 98 mmol/L Normal 98-110 [facility] Comment on above: Performed By: #### A DIFF, CBC, ANEU, GFR, BMP #### [address] [address] CO2 [Moles/Vol] 25 mmol/L Normal 22-32 [facility] Comment on above: Performed By: #### A DIFF, CBC, ANEU, GFR, BMP #### [address] [address] Creatinine [Mass/Vol] 0.97 mg/dL Normal 0.50-1.20 [facility] Comment on above: Result Comment: Test ing performed on DigitalChalk analyzer using enzymatic creatinine methodology. Performed By: #### A DIFF, CBC, ANEU, GFR, BMP #### [address] [address] Electrolyte Balance 12.0 mEq/L Normal 4.0-15.0 [facility] Comment on above: Performed By: #### A DIFF, CBC, ANEU, GFR, BMP #### [address] [address] Glucose [Mass/Vol] 160 mg/dL High 82-115 [facility] Comment on above: Performed By: #### A DIFF, CBC, ANEU, GFR, BMP #### [address] [address] Potassium [Moles/Vol] 4.7 mmol/L Normal 3.5-5.0 [facility] Comment on above: Result Comment: Spec imen slightly hemolyzed. Performed By: #### A DIFF, CBC, ANEU, GFR, BMP #### [address] [address] Sodium [Moles/Vol] 135 mmol/L Low 136-145 [facility] Comment on above: Performed By: #### A DIFF, CBC, ANEU, GFR, BMP #### [place] [address] Urea nitrogen [Mass/Vol] 34.0 mg/dL High 8.0-22.0 [facility] Comment on above: Performed By: #### A DIFF, CBC, ANEU, GFR, BMP #### [place] [address] CBCon 08-26-2024 Erythrocyte distribution width (RBC) [Ratio] 14.0 % Normal 11.5-15.5 [facility] Comment on above: Performed By: #### A DIFF, CBC, ANEU, GFR, BMP #### [place] [address] Hematocrit (Bld) [Volume fraction] 41.0 % Normal 34.0-46.0 [facility] Comment on above: Performed By: #### A DIFF, CBC, ANEU, GFR, BMP #### [place] [address] Hgb 13.4 G/dL Normal 12.0-16.0 [facility] Comment on above: Performed By: #### A DIFF, CBC, ANEU, GFR, BMP #### [place] [address] MCH (RBC) [Entitic mass] 30.0 pg Normal 27.0-33.0 [facility] Comment on above: Performed By: #### A DIFF, CBC, ANEU, GFR, BMP #### [place] [address] MCHC 32.7 G/dL Normal 32.0-36.0 [facility] Comment on above: Performed By: #### A DIFF, CBC, ANEU, GFR, BMP #### [place] [address] MCV (RBC) [Entitic vol] 91.9 fL Normal 80.0-99.0 [facility] Comment on above: Performed By: #### A DIFF, CBC, ANEU, GFR, BMP #### [address] [address] Platelet 297 10 3/mcL Normal 150-450 [facility] Comment on above: Performed By: #### A DIFF, CBC, ANEU, GFR, BMP #### [facility] [address] [place] [address] Platelet mean volume (Bld) [Entitic vol] 11.0 fL High 6.6-10.5 [facility] Comment on above: Performed By: #### A DIFF, CBC, ANEU, GFR, BMP #### [place] [id number] [address] [place] [address] RBC 4.46 10 6/mcL Normal 4.10-5.30 [facility] Comment on above: Performed By: #### A DIFF, CBC, ANEU, GFR, BMP #### [place] [id number] [address] [place] [address] WBC 8.3 10 3/mcL Normal 4.5-10.8 [facility] Comment on above: Performed By: #### A DIFF, CBC, ANEU, GFR, BMP #### [address] [address] LABORATORYOrdered By: SYSTEM SYSTEM on 08-26-2024 Basophils [...] above: Interpretive Data: T esting performed on DigitalChalk analyzer using enzymatic creatinine methodology. Electrolyte Balance [...] [facility] HAND AND WRIST [...] Sign Date: 08/25/2024 2:27:26 PM Ordering Provider: [facility] XR HUMERUS MINIMUM 2 VIEWS Veronica [...] Sign Date: 08/25/2024 2:26:11 PM Ordering Provider: [facility]IN XR SHOULDER MINIMUM 2 [...] Sign Date: 08/25/2024 2:26:45 PM Ordering Provider: [facility]IN LABORATORYOrdered By: Kala lux on 08-23-2024 Glucose [Mass/Vol] 278 mg/dL [facility] [place] Work Phone: LABORATORYOrdered By: Kala lux on 08-22-2024 Glucose [Mass/Vol] 320 mg/dL [facility] [place] Work Phone: A1Con 08-21-2024 Glucose [Mass/Vol] 194 mg/dL Normal [facility] Comment on above: Result Comment: Nancy mated Average Glucose calculated by equation ((28.7xA1C)-46.7) Estimated average glucose (eAG) is a calculated value from Hemoglobin A1C and is teleservices representative of the average blood glucose level in the last 2-3 month period. Normal range: less than 114 mg/dL Performed By: #### A 1C #### [address] [address] HbA1c (Bld) [Mass fraction] 8.4 % High 4.0-6.0 [facility] Comment on above: Performed By: #### A 1C #### [address] [address] LABORATORYOrdered By: SYSTEM SYSTEM on 08-21-2024 Glucose [Mass/Vol] 194 mg/dL Invalid Interpretation Code Auto Chem SS Comment on above: Interpretive Data: E stimated average glucose (eAG) is a calculated value from Hemoglobin A1C and is teleservices representative of the average blood glucose level in the last 2-3 month period. Normal range: less than 114 mg/dL HbA1c (Bld) [Mass fraction] 8.4 % High 4.0 - 6.0 % Auto Chem SS .Auto Diffon 08-20-2024 Basophil, Absolute 0.1 10 3/mcL Normal 0.0-0.3 [facility] Comment on above: Performed By: #### B MP, ADIFF, CBC, GFR, ANEU #### [address] [address] Basophils/100 WBC (Bld) 1.1 % Normal 0.0-2.5 [facility] Comment on above: Performed By: #### B MP, ADIFF, CBC, GFR, ANEU #### [address] [address] Eosinophil, Absolute 0.3 10 3/mcL Normal 0.0-0.7 [facility] Comment on above: Performed By: #### B MP, ADIFF, CBC, GFR, ANEU #### [address] [address] Eosinophils/100 WBC (Bld) 3.6 % Normal 0.0-6.0 [facility] Comment on above: Performed By: #### B MP, ADIFF, CBC, GFR, ANEU #### [address] [address] Lymphocyte, Absolute 1.7 10 3/mcL Normal 0.9-4.3 [facility] Comment on above: Performed By: #### B MP, ADIFF, CBC, GFR, ANEU #### [address] [address] Lymphocytes/100 WBC (Bld) 20.8 % Normal 20.0-40.0 [facility] Comment on above: Performed By: #### B MP, ADIFF, CBC, GFR, ANEU #### [address] [address] Monocyte, Absolute 0.9 10 3/mcL Normal 0.1-1.4 [facility] Comment on above: Performed By: #### B MP, ADIFF, CBC, GFR, ANEU #### [address] [address] Monocytes/100 WBC (Bld) 11.4 % Normal 2.0-13.0 [facility] Comment on above: Performed By: #### B MP, ADIFF, CBC, GFR, ANEU #### [address] [address] Neutrophils/100 WBC (Bld) 63.1 % Normal 50.0-75.0 [facility] Comment on above: Performed By: #### B MP, ADIFF, CBC, GFR, ANEU #### [address] [address] .GFRon 08-20-2024 Estimated Glomerular Filtration Rate 55 ml/min/1.73sqm Normal [facility] Comment on above: Result [...] A DIFF, CBC, ANEU, GFR, BMP #### [address] [address] .NEUABSon 08-20-2024 Neutrophil, Absolute 5.1 10 3/mcL Normal 2.3-8.1 [facility] Comment on above: Performed By: #### B MP, ADIFF, CBC, GFR, ANEU #### [address] [address] BMPon 08-20-2024 BUN/Creatinine Ratio 29.8 ratio High 10.0-22.0 [facility] Comment on above: Performed By: #### B MP, ADIFF, CBC, GFR, ANEU #### [address] [address] Calcium [Mass/Vol] 9.8 mg/dL Normal 8.7-10.4 [facility] Comment on above: Performed By: #### B MP, ADIFF, CBC, GFR, ANEU #### [address] [address] Chloride [Moles/Vol] 95 mmol/L Low 98-110 [facility] Comment on above: Performed By: #### B MP, ADIFF, CBC, GFR, ANEU #### [address] [address] CO2 [Moles/Vol] 34 mmol/L High 22-32 [facility] Comment on above: Performed By: #### B MP, ADIFF, CBC, GFR, ANEU #### [address] [address] Creatinine [Mass/Vol] 1.04 mg/dL Normal 0.50-1.20 [facility] MAIN Comment on above: Result Comment: Test ing performed on DigitalChalk analyzer using enzymatic creatinine methodology. Performed By: #### B MP, ADIFF, CBC, GFR, ANEU #### [place] [id number] Electrolyte Balance 5.0 mEq/L Normal 4.0-15.0 [facility] MAIN Comment on above: Performed By: #### B MP, ADIFF, CBC, GFR, ANEU #### [address] [address] Glucose [Mass/Vol] 244 mg/dL High 82-115 [facility] Comment on above: Performed By: #### B MP, ADIFF, CBC, GFR, ANEU #### [place] [id number] Potassium [Moles/Vol] 4.8 mmol/L Normal 3.5-5.0 [facility] MAIN Comment on above: Result Comment: Spec imen slightly hemolyzed. Performed By: #### B MP, ADIFF, CBC, GFR, ANEU #### [place] [id number] Sodium [Moles/Vol] 134 mmol/L Low 136-145 [facility] Comment on above: Performed By: #### B MP, ADIFF, CBC, GFR, ANEU #### [place] [id number] Urea nitrogen [Mass/Vol] 31.0 mg/dL High 8.0-22.0 [facility] Comment on above: Performed By: #### B MP, ADIFF, CBC, GFR, ANEU #### [address] [address] CBCon 08-20-2024 Erythrocyte distribution width (RBC) [Ratio] 14.0 % Normal 11.5-15.5 [facility] Comment on above: Performed By: #### B MP, ADIFF, CBC, GFR, ANEU #### [place] [id number] Hematocrit (Bld) [Volume fraction] 41.9 % Normal 34.0-46.0 [facility] Comment on above: Performed By: #### B MP, ADIFF, CBC, GFR, ANEU #### [place] [address] Hgb 13.6 G/dL Normal 12.0-16.0 [facility] Comment on above: Performed By: #### B MP, ADIFF, CBC, GFR, ANEU #### [place] [address] MCH (RBC) [Entitic mass] 29.7 pg Normal 27.0-33.0 [facility] Comment on above: Performed By: #### B MP, ADIFF, CBC, GFR, ANEU #### [place] [address] MCHC 32.4 G/dL Normal 32.0-36.0 [facility] Comment on above: Performed By: #### B MP, ADIFF, CBC, GFR, ANEU #### [place] [address] MCV (RBC) [Entitic vol] 91.5 fL Normal 80.0-99.0 [facility] Comment on above: Performed By: #### B MP, ADIFF, CBC, GFR, ANEU #### [place] [address] Platelet 301 10 3/mcL Normal 150-450 [facility] Comment on above: Performed By: #### B MP, ADIFF, CBC, GFR, ANEU #### [place] [address] Platelet mean volume (Bld) [Entitic vol] 11.0 fL High 6.6-10.5 [facility] Comment on above: Performed By: #### B MP, ADIFF, CBC, GFR, ANEU #### [place] [address] RBC 4.58 10 6/mcL Normal 4.10-5.30 [facility] Comment on above: Performed By: #### B MP, ADIFF, CBC, GFR, ANEU #### [place] [address] WBC 8.1 10 3/mcL Normal 4.5-10.8 [facility] Comment on above: Performed By: #### B MP, ADIFF, CBC, GFR, ANEU #### [place] [id number] [address] [place] [address] LABORATORYOrdered By: SYSTEM SYSTEM on 08-20-2024 Basophils [...] above: Interpretive Data: T esting performed on DigitalChalk analyzer using enzymatic creatinine methodology. Electrolyte Balance [...] 08/18/2024 3:14:15 PM Ordering Provider: NANDO Anderson [facility] .Auto Diffon 08-16-2024 Basophil, Absolute 0.1 10 3/mcL Normal 0.0-0.3 [facility] Comment on above: Performed By: #### A DIFF, CBC, ANEU, GFR, BMP #### [address] [address] Basophils/100 WBC (Bld) 0.7 % Normal 0.0-2.5 [facility] Comment on above: Performed By: #### A DIFF, CBC, ANEU, GFR, BMP #### [address] [address] Eosinophil, Absolute 0.3 10 3/mcL Normal 0.0-0.7 [facility] Comment on above: Performed By: #### A DIFF, CBC, ANEU, GFR, BMP #### [address] [address] Eosinophils/100 WBC (Bld) 2.1 % Normal 0.0-6.0 [facility] Comment on above: Performed By: #### A DIFF, CBC, ANEU, GFR, BMP #### [address] [address] Lymphocyte, Absolute 1.9 10 3/mcL Normal 0.9-4.3 [facility] Comment on above: Performed By: #### A DIFF, CBC, ANEU, GFR, BMP #### [address] [address] Lymphocytes/100 WBC (Bld) 14.8 % Low 20.0-40.0 [facility] Comment on above: Performed By: #### A DIFF, CBC, ANEU, GFR, BMP #### [address] [address] Monocyte, Absolute 1.2 10 3/mcL Normal 0.1-1.4 [facility] Comment on above: Performed By: #### A DIFF, CBC, ANEU, GFR, BMP #### [address] [address] Monocytes/100 WBC (Bld) 9.8 % Normal 2.0-13.0 [facility] Comment on above: Performed By: #### A DIFF, CBC, ANEU, GFR, BMP #### [address] [address] Neutrophils/100 WBC (Bld) 72.6 % Normal 50.0-75.0 [facility] Comment on above: Performed By: #### A DIFF, CBC, ANEU, GFR, BMP #### [address] [address] .GFRon 08-16-2024 Estimated Glomerular Filtration Rate 58 ml/min/1.73sqm Normal [facility] MA[facility] Comment on above: Result [...] A DIFF, CBC, ANEU, GFR, BMP #### [address] [address] .NEUABSon 08-16-2024 Neutrophil, Absolute 9.2 10 3/mcL High 2.3-8.1 [facility] Comment on above: Performed By: #### A DIFF, CBC, ANEU, GFR, BMP #### [place] [address] BMPon 08-16-2024 BUN/Creatinine Ratio 34.3 ratio High 10.0-22.0 [facility] Comment on above: Performed By: #### A DIFF, CBC, ANEU, GFR, BMP #### [place] [address] Calcium [Mass/Vol] 9.0 mg/dL Normal 8.7-10.4 [facility] Comment on above: Performed By: #### A DIFF, CBC, ANEU, GFR, BMP #### [place] [address] Chloride [Moles/Vol] 100 mmol/L Normal 98-110 [facility] MA[facility] Comment on above: Performed By: #### A DIFF, CBC, ANEU, GFR, BMP #### [place] [address] CO2 [Moles/Vol] 30 mmol/L Normal 22-32 [facility] Comment on above: Performed By: #### A DIFF, CBC, ANEU, GFR, BMP #### [place] [address] Creatinine [Mass/Vol] 0.99 mg/dL Normal 0.50-1.20 [facility] MAIN Comment on above: Result Comment: Test ing performed on DigitalChalk analyzer using enzymatic creatinine methodology. Performed By: #### A DIFF, CBC, ANEU, GFR, BMP #### [place] [id number] Electrolyte Balance 5.0 mEq/L Normal 4.0-15.0 [facility] MAIN Comment on above: Performed By: #### A DIFF, CBC, ANEU, GFR, BMP #### [address] [address] Glucose [Mass/Vol] 259 mg/dL High 82-115 [facility] MA[facility] Comment on above: Performed By: #### A DIFF, CBC, ANEU, GFR, BMP #### [address] [address] Potassium [Moles/Vol] 5.0 mmol/L Normal 3.5-5.0 [facility] MAIN Comment on above: Performed By: #### A DIFF, CBC, ANEU, GFR, BMP #### [address] [address] Sodium [Moles/Vol] 135 mmol/L Low 136-145 [facility] Comment on above: Performed By: #### A DIFF, CBC, ANEU, GFR, BMP #### [place] [id number] Urea nitrogen [Mass/Vol] 34.0 mg/dL High 8.0-22.0 [facility] Comment on above: Performed By: #### A DIFF, CBC, ANEU, GFR, BMP #### [place] [id number] CBCon 08-16-2024 Erythrocyte distribution width (RBC) [Ratio] 13.7 % Normal 11.5-15.5 [facility] Comment on above: Performed By: #### A DIFF, CBC, ANEU, GFR, BMP #### [place] [id number] Hematocrit (Bld) [Volume fraction] 43.3 % Normal 34.0-46.0 [facility] Comment on above: Performed By: #### A DIFF, CBC, ANEU, GFR, BMP #### [place] [id number] Hgb 13.9 G/dL Normal 12.0-16.0 [facility] Comment on above: Performed By: #### A DIFF, CBC, ANEU, GFR, BMP #### [place] [id number] MCH (RBC) [Entitic mass] 30.0 pg Normal 27.0-33.0 [facility] Comment on above: Performed By: #### A DIFF, CBC, ANEU, GFR, BMP #### [place] [address] MCHC 32.1 G/dL Normal 32.0-36.0 [facility] Comment on above: Performed By: #### A DIFF, CBC, ANEU, GFR, BMP #### [place] [address] MCV (RBC) [Entitic vol] 93.6 fL Normal 80.0-99.0 [facility] Comment on above: Performed By: #### A DIFF, CBC, ANEU, GFR, BMP #### [place] [address] Platelet 230 10 3/mcL Normal 150-450 [facility] MA[facility] Comment on above: Performed By: #### A DIFF, CBC, ANEU, GFR, BMP #### [place] [address] Platelet mean volume (Bld) [Entitic vol] 10.7 fL High 6.6-10.5 [facility] Comment on above: Performed By: #### A DIFF, CBC, ANEU, GFR, BMP #### [place] [address] RBC 4.63 10 6/mcL Normal 4.10-5.30 [facility] Comment on above: Performed By: #### A DIFF, CBC, ANEU, GFR, BMP #### [place] [address] WBC 12.7 10 3/mcL High 4.5-10.8 [facility] Comment on above: Performed By: #### A DIFF, CBC, ANEU, GFR, BMP #### [place] [address] LABORATORYOrdered By: Marily Panda on 08-16-2024 Blood Glucose Interventions Administered agent to decrease blood sugar (08/16/24 12:23 PM) [employer] Work Phone: Blood Glucose Interventions Retest (08/16/24 10:15 AM) [employer] Work Phone: Bacteria identified Cx Nom ( Bld)on 08-15-2024 Bacteria identified Cx Nom (Unsp spec) NO GROWTH DAY 5 OF 5 [facility] CARDIAC RHYTHMon 08-15-2024 [facility] CBC,PLATELETSon 08-15-2024 Erythrocyte distribution width (RBC) [Ratio] 13.4 % 10.8 - 14.9 % [facility] Hematocrit (Bld) [Volume fraction] 43.8 % 34.9 - 44.3 % [facility] Hemoglobin (Bld) [Mass/Vol] 13.5 g/dL 11.4 - 15.2 g/dL [facility] Interpretation and review of laboratory results Abnormal [facility] MCH (RBC) [Entitic mass] 28.9 pg 25.9 - 33.9 pg [facility] MCHC (RBC) [Mass/Vol] 30.8 g/dL Low 31.4 - 35.9 g/dL [facility] MCV (RBC) [Entitic vol] 93.8 fL 79.6 - 97.7 fL [facility] Platelet mean volume (Bld) [Entitic vol] 12 fL 8.5 - 12.2 fL [facility] Platelets (Bld) [#/Vol] 252 10*3/uL 150 - 393 K/uL [facility] RBC (Bld) [#/Vol] 4.67 10*6/uL [facility] WBC (Bld) [#/Vol] 11.94 10*3/uL High 3.99 - 11.19 K/uL [facility] Hematocrit (Bld) [Volume fraction] 43.8 % Normal 34.9-44.3 [facility] Comment on above: Performed By: #### X M #### [facility] (DEFAULT) [address] [address] Hemoglobin (Bld) [Mass/Vol] 13.5 g/dL Normal 11.4-15.2 [facility] Comment on above: Performed By: #### X M #### [facility] (DEFAULT) [address] [place] [address] MCV (RBC) [Entitic vol] 93.8 fL Normal 79.6-97.7 [facility] Comment on above: Performed By: #### X M #### [facility] (DEFAULT) [address] [address] Mean Cell Hgb 28.9 pg Normal 25.9-33.9 [facility] Comment on above: Performed By: #### X M #### [facility] (DEFAULT) [address] [address] Mean Cell Hgb Conc 30.8 g/dL Low 31.4-35.9 [facility] Comment on above: Performed By: #### X M #### [facility] (DEFAULT) [address] [address] Platelet mean volume (Bld) [Entitic vol] 12.0 fL Normal 8.5-12.2 [facility] Comment on above: Performed By: #### X M #### [facility] (DEFAULT) [address] [address] Platelets (Bld) [#/Vol] 252 10*3/uL Normal 150-393 [facility] Comment on above: Performed By: #### X M #### [facility] (DEFAULT) [address] [place] [address] RBC (Bld) [#/Vol] 4.67 10*6/uL Normal 3.91-5.04 [facility] Comment on above: Performed By: #### X M #### [facility] (DEFAULT) [address] [address] RBC Distribution 13.4 % Normal 10.8-14.9 [facility] Comment on above: Performed By: #### X M #### [facility] [place] [facility] (DEFAULT) [address] [place] [address] WBC (Bld) [#/Vol] 11.94 10*3/uL High 3.99-11.19 [facility] Comment on above: Performed By: #### X M #### [facility] (DEFAULT) [address] [place] [address] CHEM 7 (LYTES,BUN,CREA,GLUC) on 08-15-2024 Anion gap [Moles/Vol] 16 mmol/L 7 - 17 mmol/L [facility] Chloride [Moles/Vol] 99 mmol/L 98 - 10 8 mmol/L [facility] CO2 [Moles/Vol] 25 mmol/L 21 - 31 mmol/L [facility] Creatinine [Mass/Vol] 1.27 mg/dL High 0.50 - 1.20 mg/dL [facility] eGFR, CKD-EPI, Female 43 Low - PINF [facility] Glucose [Mass/Vol] 214 mg/dL High 70 - 179 mg/dL [facility] Interpretation and review of laboratory results Abnormal [facility] Osmolality Calc [Osmolality] 306 High [facility] Potassium [Moles/Vol] 4.8 mmol/L 3.5 - 5.0 mmol/L [facility] Sodium [Moles/Vol] 135 mmol/L 135 - 145 mmol/L [facility] Urea nitrogen [Mass/Vol] 51 mg/dL High 7 - 25 mg/dL [facility] Urea nitrogen/Creatinine [Mass ratio] 40 mg/mg [facility] Anion gap [Moles/Vol] 16 mmol/L Normal 7-17 [facility] Comment on above: Performed By: #### [facility] #### [facility] (DEFAULT) [address] [place] [address] Chloride [Moles/Vol] 99 mmol/L Normal 98-108 [facility] Comment on above: Performed By: #### H EMOGC #### [facility] (DEFAULT) [address] [place] [address] CO2 [Moles/Vol] 25 mmol/L Normal 21-31 [facility] Comment on above: Performed By: #### H EMOGC #### [facility] [place] [facility] (DEFAULT) [address] [place] [address] Creatinine [Mass/Vol] 1.27 mg/dL High 0.50-1.20 [facility] Comment on above: Performed By: #### H EMOGC #### [facility] [place] [facility] (DEFAULT) [address] [place] [address] GFR/1.73 sq M.predicted among non-blacks MDRD (S/P/Bld) [Vol rate/Area] 43 mL/min/{1.73_m2} Low >=60 [facility] Comment on above: Result Comment: Repo rted eGFR is based on the CKD-EPI 2020 equation using creatinine, age, and sex. Performed By: #### H EMO #### [place] [facility] [place] [facility] (DEFAULT) [address] [place] [address] Glucose [Mass/Vol] 214 mg/dL High Nonfastin -179 mg/dL; Fastin-99 [facility] Comment on above: Performed By: #### H EMO #### [facility] [place] [facility] (DEFAULT) [address] [place] [address] Osmolality [Osmolality] 306 mosm/kg High 278-305 [facility] Comment on above: Performed By: #### H EMOGC #### [facility] [place] [facility] (DEFAULT) [address] [place] [address] Potassium [Moles/Vol] 4.8 mmol/L Normal 3.5-5.0 [facility] Comment on above: Performed By: #### H EMOGC #### [facility] [place] [facility] (DEFAULT) [address] [place] [address] Sodium [Moles/Vol] 135 mmol/L Normal 135-145 [facility] Comment on above: Performed By: #### H EMOGC #### [facility] (DEFAULT) [address] [place] [address] Urea nitrogen [Mass/Vol] 51 mg/dL High 7-25 [facility] Comment on above: Performed By: #### [facility] #### [facility] (DEFAULT) [address] [place] [address] Urea nitrogen/Creatinine [Mass ratio] 40 mg/mg Normal [facility] Comment on above: Performed By: #### [facility] #### [facility] (DEFAULT) [address] [place] [address] GLUCOSE POCon 08-15-2024 Glucose [Mass/Vol] 190 mg/dL High 70 - 179 mg/dL [facility] Interpretation and review of laboratory results Abnormal [facility] POC Sample Type CAPBL [facility] Glucose [Mass/Vol] 146 mg/dL 70 - 179 mg/dL [facility] POC Sample Type CAPBL [facility] Glucose [Mass/Vol] 215 mg/dL High 70 - 179 mg/dL [facility] Interpretation and review of laboratory results Abnormal [facility] POC Sample Type CAPBL [facility] MAGNESIUMon 08-15-2024 Interpretation and review of laboratory results Normal [facility] Magnesium [Mass/Vol] 1.6 mg/dL 1.6 - 2 .6 mg/dL [facility] Magnesium [Mass/Vol] 1.6 mg/dL Normal 1.6-2.6 [facility] Comment on above: Performed By: #### [facility] #### [facility] (DEFAULT) [address] [place] [address] No Panel Informationon 08-15 [facility] CBC,PLATELETSon 08-14-2024 Erythrocyte distribution width (RBC) [Ratio] 13.4 % 10.8 - 14.9 % [facility] Hematocrit (Bld) [Volume fraction] 47.9 % High 34.9 - 44.3 % [facility] Hemoglobin (Bld) [Mass/Vol] 14.3 g/dL 11.4 - 15.2 g/dL [facility] Interpretation and review of laboratory results Abnormal [facility] MCH (RBC) [Entitic mass] 29.3 pg 25.9 - 33.9 pg [facility] MCHC (RBC) [Mass/Vol] 29.9 g/dL Low 31.4 - 35.9 g/dL [facility] MCV (RBC) [Entitic vol] 98.2 fL High 79.6 - 97.7 fL [facility] Platelet mean volume (Bld) [Entitic vol] 11.3 fL 8.5 - 12.2 fL [facility] Platelets (Bld) [#/Vol] 229 10*3/uL 150 - 393 K/uL [facility] RBC (Bld) [#/Vol] 4.88 10*6/uL [facility] WBC (Bld) [#/Vol] 12.14 10*3/uL High 3.99 - 11.19 K/uL [facility] Hematocrit (Bld) [Volume fraction] 47.9 % High 34.9-44.3 [facility] Comment on above: Performed By: #### X M #### [facility] (DEFAULT) [address] [address] Hemoglobin (Bld) [Mass/Vol] 14.3 g/dL Normal 11.4-15.2 [facility] Comment on above: Performed By: #### X M #### [facility] (DEFAULT) [address] [address] MCV (RBC) [Entitic vol] 98.2 fL High 79.6-97.7 [facility] Comment on above: Performed By: #### X M #### [facility] (DEFAULT) [address] [place] [address] Mean Cell Hgb 29.3 pg Normal 25.9-33.9 [facility] Comment on above: Performed By: #### X M #### [facility] (DEFAULT) [address] [place] [address] Mean Cell Hgb Conc 29.9 g/dL Low 31.4-35.9 [facility] Comment on above: Performed By: #### X M #### [facility] (DEFAULT) [address] [place] [address] Platelet mean volume (Bld) [Entitic vol] 11.3 fL Normal 8.5-12.2 [facility] Comment on above: Performed By: #### X M #### [facility] (DEFAULT) [address] [place] [address] Platelets (Bld) [#/Vol] 229 10*3/uL Normal 150-393 [facility] Comment on above: Performed By: #### X M #### [facility] (DEFAULT) [address] [place] [address] RBC (Bld) [#/Vol] 4.88 10*6/uL Normal 3.91-5.04 [facility] Comment on above: Performed By: #### X M #### [facility] (DEFAULT) [address] [place] [address] RBC Distribution 13.4 % Normal 10.8-14.9 [facility] Comment on above: Performed By: #### X M #### [facility] (DEFAULT) [address] [place] [address] WBC (Bld) [#/Vol] 12.14 10*3/uL High 3.99-11.19 [facility] Comment on above: Performed By: #### X M #### [facility] (DEFAULT) [address] [place] [address] CHEM 7 (LYTES,BUN,CREA,GLUC) on 08-14-2024 Anion gap [Moles/Vol] 16 mmol/L 7 - 17 mmol/L [facility] Chloride [Moles/Vol] 101 mmol/L 98 - 10 8 mmol/L [facility] CO2 [Moles/Vol] 23 mmol/L 21 - 31 mmol/L [facility] Creatinine [Mass/Vol] 1.15 mg/dL 0.50 - 1.20 mg/dL [facility] eGFR, CKD-EPI, Female 48 Low - PINF [facility] Glucose [Mass/Vol] 208 mg/dL High 70 - 179 mg/dL [facility] Interpretation and review of laboratory results Abnormal [facility] Osmolality Calc [Osmolality] 304 [facility] Potassium [Moles/Vol] 4.7 mmol/L 3.5 - 5.0 mmol/L [facility] Sodium [Moles/Vol] 135 mmol/L 135 - 145 mmol/L [facility] Urea nitrogen [Mass/Vol] 47 mg/dL High 7 - 25 mg/dL [facility] Urea nitrogen/Creatinine [Mass ratio] 41 mg/mg [facility] Anion gap [Moles/Vol] 16 mmol/L Normal 7-17 [facility] Comment on above: Performed By: #### B LDCULT #### [facility] (DEFAULT) [address] [place] [address] Chloride [Moles/Vol] 101 mmol/L Normal 98-108 [facility] Comment on above: Performed By: #### B LDCULT #### [facility] (DEFAULT) [address] [place] [address] CO2 [Moles/Vol] 23 mmol/L Normal 21-31 [facility] Comment on above: Performed By: #### B LDCULT #### [facility] (DEFAULT) [address] [place] [address] Creatinine [Mass/Vol] 1.15 mg/dL Normal 0.50-1.20 [facility] Comment on above: Performed By: #### B LDCULT #### [facility] [place] [facility] (DEFAULT) [address] [place] [address] GFR/1.73 sq M.predicted among non-blacks MDRD (S/P/Bld) [Vol rate/Area] 48 mL/min/{1.73_m2} Low >=60 [facility] Comment on above: Result Comment: Repo rted eGFR is based on the CKD-EPI 2020 equation using creatinine, age, and sex. Performed By: #### B LDCULT #### [facility] (DEFAULT) [address] [place] [address] 47472 Glucose [Mass/Vol] 208 mg/dL High Nonfastin -179 mg/dL; Fastin-99 [facility] Comment on above: Performed By: #### B LDCULT #### [place] [facility] (DEFAULT) [address] [place] [address] 90809 Osmolality [Osmolality] 304 mosm/kg Normal 278-305 [facility] Comment on above: Performed By: #### B LDCULT #### [facility] (DEFAULT) [address] [place] [address] 48351 Potassium [Moles/Vol] 4.7 mmol/L Normal 3.5-5.0 [facility] Comment on above: Performed By: #### B LDCULT #### [facility] (DEFAULT) [address] [place] [address] 64813 Sodium [Moles/Vol] 135 mmol/L Normal 135-145 [facility] Comment on above: Performed By: #### B LDCULT #### [facility] (DEFAULT) [address] [place] [address] 66520 Urea nitrogen [Mass/Vol] 47 mg/dL High 7-25 [facility] Comment on above: Performed By: #### B LDCULT #### [facility] (DEFAULT) [address] [place] [address] 19612 Urea nitrogen/Creatinine [Mass ratio] 41 mg/mg Normal [facility] Comment on above: Performed By: #### B LDCULT #### [facility] (DEFAULT) [address] [place] [address] 84873 GLUCOSE POCon 08-14-2024 Glucose [Mass/Vol] 204 mg/dL High 70 - 179 mg/dL [facility] Interpretation and review of laboratory results Abnormal [facility] POC Sample Type [facility] Glucose [Mass/Vol] 264 mg/dL High 70 - 179 mg/dL [facility] Interpretation and review of laboratory results Abnormal [facility] POC Sample Type CAPBL [facility] Glucose [Mass/Vol] 189 mg/dL High 70 - 179 mg/dL [facility] Interpretation and review of laboratory results Abnormal [facility] POC Sample Type CAPBL [facility] MAGNESIUMon 08-14-2024 Interpretation and review of laboratory results Normal [facility] Magnesium [Mass/Vol] 1.6 mg/dL 1.6 - 2 .6 mg/dL [facility] Magnesium [Mass/Vol] 1.6 mg/dL Normal 1.6-2.6 [facility] Comment on above: Performed By: #### B LDCULT #### [facility] (DEFAULT) [address] [id number] No Panel Informationon 08-14 [facility] CBC,PLATELETSon 08-13-2024 Erythrocyte distribution width (RBC) [Ratio] 13.4 % 10.8 - 14.9 % [facility] Hematocrit (Bld) [Volume fraction] 45.7 % High 34.9 - 44.3 % [facility] Hemoglobin (Bld) [Mass/Vol] 14.3 g/dL 11.4 - 15.2 g/dL [facility] Interpretation and review of laboratory results Abnormal [facility] MCH (RBC) [Entitic mass] 29.5 pg 25.9 - 33.9 pg [facility] MCHC (RBC) [Mass/Vol] 31.3 g/dL Low 31.4 - 35.9 g/dL [facility] MCV (RBC) [Entitic vol] 94.2 fL 79.6 - 97.7 fL [facility] Platelet mean volume (Bld) [Entitic vol] 11.7 fL 8.5 - 12.2 fL [facility] Platelets (Bld) [#/Vol] 245 10*3/uL 150 - 393 K/uL [facility] RBC (Bld) [#/Vol] 4.85 10*6/uL [facility] WBC (Bld) [#/Vol] 12.02 10*3/uL High 3.99 - 11.19 K/uL [facility] Hematocrit (Bld) [Volume fraction] 45.7 % High 34.9-44.3 [facility] Comment on above: Performed By: #### [facility] #### [facility] (DEFAULT) [address] [address] Hemoglobin (Bld) [Mass/Vol] 14.3 g/dL Normal 11.4-15.2 [facility] Comment on above: Performed By: #### H EMOGC #### [facility] (DEFAULT) [address] [place] [address] 90309 MCV (RBC) [Entitic vol] 94.2 fL Normal 79.6-97.7 O [facility] Comment on above: Performed By: #### H EMOGC #### [facility] (DEFAULT) [address] [place] [address] 47641 Mean Cell Hgb 29.5 pg Normal 25.9-33.9 [facility] Comment on above: Performed By: #### H EMOGC #### [facility] (DEFAULT) [address] [place] [address] 68084 Mean Cell Hgb Conc 31.3 g/dL Low 31.4-35.9 [facility] Comment on above: Performed By: #### H EMO #### [facility] (DEFAULT) [address] [place] [address] 58377 Platelet mean volume (Bld) [Entitic vol] 11.7 fL Normal 8.5-12.2 [facility] Comment on above: Performed By: #### H EMO #### [facility] (DEFAULT) [address] [place] [address] 29012 Platelets (Bld) [#/Vol] 245 10*3/uL Normal 150-393 [facility] Comment on above: Performed By: #### H EMO #### [facility] (DEFAULT) [address] [place] [address] 44492 RBC (Bld) [#/Vol] 4.85 10*6/uL Normal 3.91-5.04 [facility] Comment on above: Performed By: #### H EMO #### [facility] (DEFAULT) [address] [place] [address] 09341 RBC Distribution 13.4 % Normal 10.8-14.9 [facility] Comment on above: Performed By: #### H EMO #### [facility] (DEFAULT) [address] [place] [address] 65357 WBC (Bld) [#/Vol] 12.02 10*3/uL High 3.99-11.19 [facility] Comment on above: Performed By: #### H EMO #### [facility] (DEFAULT) [address] [place] [address] 79280 CHEM 7 (LYTES,BUN,CREA,GLUC) on 08-13-2024 Anion gap [Moles/Vol] 15 mmol/L 7 - 17 mmol/L [facility] Chloride [Moles/Vol] 104 mmol/L 98 - 10 8 mmol/L [facility] CO2 [Moles/Vol] 23 mmol/L 21 - 31 mmol/L [facility] Creatinine [Mass/Vol] 1.18 mg/dL 0.50 - 1.20 mg/dL [facility] eGFR, CKD-EPI, Female 47 Low - PINF [facility] Glucose [Mass/Vol] 225 mg/dL High 70 - 179 mg/dL [facility] Interpretation and review of laboratory results Abnormal [facility] Osmolality Calc [Osmolality] 311 High [facility] Potassium [Moles/Vol] 4.6 mmol/L 3.5 - 5.0 mmol/L [facility] Sodium [Moles/Vol] 137 mmol/L 135 - 145 mmol/L [facility] Urea nitrogen [Mass/Vol] 55 mg/dL High 7 - 25 mg/dL [facility] Urea nitrogen/Creatinine [Mass ratio] 47 mg/mg [facility] Anion gap [Moles/Vol] 15 mmol/L Normal 7-17 [facility] Comment on above: Performed By: #### [facility] #### [facility] (DEFAULT) [address] [address] Chloride [Moles/Vol] 104 mmol/L Normal 98-108 [facility] Comment on above: Performed By: #### [facility] #### [facility] (DEFAULT) [address] [address] CO2 [Moles/Vol] 23 mmol/L Normal 21-31 [facility] Comment on above: Performed By: #### [facility] #### [facility] (DEFAULT) [address] [address] Creatinine [Mass/Vol] 1.18 mg/dL Normal 0.50-1.20 [facility] Comment on above: Performed By: #### [facility] #### [facility] (DEFAULT) [address] [address] GFR/1.73 sq M.predicted among non-blacks MDRD (S/P/Bld) [Vol rate/Area] 47 mL/min/{1.73_m2} Low >=60 [facility] Comment on above: Result Comment: Repo rted eGFR is based on the CKD-EPI 2020 equation using creatinine, age, and sex. Performed By: #### H EMO #### [facility] (DEFAULT) [address] [place] [address] 38896 Glucose [Mass/Vol] 225 mg/dL High Nonfastin -179 mg/dL; Fastin-99 [facility] Comment on above: Performed By: #### H EMOGC #### [facility] (DEFAULT) [address] [place] [address] 33303 Osmolality [Osmolality] 311 mosm/kg High 278-305 [facility] Comment on above: Performed By: #### H EMO #### [facility] (DEFAULT) [address] [place] [address] 16332 Potassium [Moles/Vol] 4.6 mmol/L Normal 3.5-5.0 [facility] Comment on above: Performed By: #### H EMO #### [facility] (DEFAULT) [address] [place] [address] 04075 Sodium [Moles/Vol] 137 mmol/L Normal 135-145 [facility] Comment on above: Performed By: #### H EMO #### [facility] (DEFAULT) [address] [place] [address] 61739 Urea nitrogen [Mass/Vol] 55 mg/dL High 7-25 [facility] Comment on above: Performed By: #### H EMO #### [facility] (DEFAULT) [address] [place] [address] 89493 Urea nitrogen/Creatinine [Mass ratio] 47 mg/mg Normal [facility] Comment on above: Performed By: #### H EMOGC #### [facility] (DEFAULT) [address] [place] [address] 46665 GLUCOSE POCon 08-13-2024 Glucose [Mass/Vol] 195 mg/dL High 70 - 179 mg/dL [facility] Interpretation and review of laboratory results Abnormal [facility] POC Sample Type [facility] Glucose [Mass/Vol] 198 mg/dL High 70 - 179 mg/dL [facility] Interpretation and review of laboratory results Abnormal [facility] POC Sample Type [facility] Glucose [Mass/Vol] 158 mg/dL 70 - 179 mg/dL [facility] POC Sample Type [facility] Glucose [Mass/Vol] 211 mg/dL High 70 - 179 mg/dL [facility] Interpretation and review of laboratory results Abnormal [facility] POC Sample Type [facility] Glucose [Mass/Vol] 240 mg/dL High 70 - 179 mg/dL [facility] Interpretation and review of laboratory results Abnormal [facility] POC Sample Type CAPBL [facility] MAGNESIUMon 08-13-2024 Interpretation and review of laboratory results Normal [facility] Magnesium [Mass/Vol] 1.8 mg/dL 1.6 - 2 .6 mg/dL [facility] Magnesium [Mass/Vol] 1.8 mg/dL Normal 1.6-2.6 [facility] Comment on above: Performed By: #### [facility] #### [facility] (DEFAULT) [address] [place] [address] No Panel Informationon 08-13 [facility] CBC,PLATELETSon 08-12-2024 Erythrocyte distribution width (RBC) [Ratio] 13.6 % 10.8 - 14.9 % [facility] Hematocrit (Bld) [Volume fraction] 45.1 % High 34.9 - 44.3 % [facility] Hemoglobin (Bld) [Mass/Vol] 14.3 g/dL 11.4 - 15.2 g/dL [facility] Interpretation and review of laboratory results Abnormal [facility] MCH (RBC) [Entitic mass] 29.7 pg 25.9 - 33.9 pg [facility] MCHC (RBC) [Mass/Vol] 31.7 g/dL 31.4 - 35.9 g/dL [facility] MCV (RBC) [Entitic vol] 93.6 fL 79.6 - 97.7 fL [facility] Platelet mean volume (Bld) [Entitic vol] 11.4 fL 8.5 - 12.2 fL [facility] Platelets (Bld) [#/Vol] 241 10*3/uL 150 - 393 K/uL [facility] RBC (Bld) [#/Vol] 4.82 10*6/uL [facility] WBC (Bld) [#/Vol] 14.32 10*3/uL High 3.99 - 11.19 K/uL [facility] Hematocrit (Bld) [Volume fraction] 45.1 % High 34.9-44.3 [facility] Comment on above: Performed By: #### [facility] #### [facility] (DEFAULT) [address] [address] Hemoglobin (Bld) [Mass/Vol] 14.3 g/dL Normal 11.4-15.2 [facility] Comment on above: Performed By: #### [facility] #### [facility] (DEFAULT) [address] [address] MCV (RBC) [Entitic vol] 93.6 fL Normal 79.6-97.7 O [facility] Comment on above: Performed By: #### [facility] #### [facility] (DEFAULT) [address] [address] Mean Cell Hgb 29.7 pg Normal 25.9-33.9 [facility] Comment on above: Performed By: #### [facility] #### [facility] (DEFAULT) [address] [place] [address] 45922 Mean Cell Hgb Conc 31.7 g/dL Normal 31.4-35.9 [facility] Comment on above: Performed By: #### H EMOGC #### [facility] (DEFAULT) [address] [place] [address] 18748 Platelet mean volume (Bld) [Entitic vol] 11.4 fL Normal 8.5-12.2 [facility] Comment on above: Performed By: #### H EMOGC #### [facility] (DEFAULT) [address] [place] [address] 16328 Platelets (Bld) [#/Vol] 241 10*3/uL Normal 150-393 [facility] Comment on above: Performed By: #### H EMOGC #### [facility] (DEFAULT) [address] [place] [address] 20217 RBC (Bld) [#/Vol] 4.82 10*6/uL Normal 3.91-5.04 [facility] Comment on above: Performed By: #### H EMOGC #### [facility] (DEFAULT) [address] [place] [address] 54726 RBC Distribution 13.6 % Normal 10.8-14.9 [facility] Comment on above: Performed By: #### H EMOGC #### [facility] (DEFAULT) [address] [place] [address] 91200 WBC (Bld) [#/Vol] 14.32 10*3/uL High 3.99-11.19 [facility] Comment on above: Performed By: #### H EMOGC #### [facility] (DEFAULT) [address] [address] CHEM 7 (LYTES,BUN,CREA,GLUC) on 08-12-2024 Anion gap [Moles/Vol] 15 mmol/L 7 - 17 mmol/L [facility] Chloride [Moles/Vol] 104 mmol/L 98 - 10 8 mmol/L [facility] CO2 [Moles/Vol] 27 mmol/L 21 - 31 mmol/L [facility] Creatinine [Mass/Vol] 1.36 mg/dL High 0.50 - 1.20 mg/dL [facility] eGFR, CKD-EPI, Female 40 Low - PINF [facility] Glucose [Mass/Vol] 126 mg/dL 70 - 179 mg/dL [facility] Interpretation and review of laboratory results Abnormal [facility] Osmolality Calc [Osmolality] 313 High [facility] Potassium [Moles/Vol] 4.5 mmol/L 3.5 - 5.0 mmol/L [facility] Sodium [Moles/Vol] 141 mmol/L 135 - 145 mmol/L [facility] Urea nitrogen [Mass/Vol] 56 mg/dL High 7 - 25 mg/dL [facility] Urea nitrogen/Creatinine [Mass ratio] 41 mg/mg [facility] Anion gap [Moles/Vol] 15 mmol/L Normal 7-17 [facility] Comment on above: Performed By: #### T YPEC #### [facility] (DEFAULT) [address] [place] [address] 24742 Chloride [Moles/Vol] 104 mmol/L Normal 98-108 [facility] Comment on above: Performed By: #### T YPEC #### [facility] (DEFAULT) [address] [place] [address] 24883 CO2 [Moles/Vol] 27 mmol/L Normal 21-31 [facility] Comment on above: Performed By: #### T YPEC #### [facility] (DEFAULT) [address] [place] [address] Creatinine [Mass/Vol] 1.36 mg/dL High 0.50-1.20 [facility] Comment on above: Performed By: #### T YPEC #### [facility] (DEFAULT) [address] [place] [address] 60322 GFR/1.73 sq M.predicted among non-blacks MDRD (S/P/Bld) [Vol rate/Area] 40 mL/min/{1.73_m2} Low >=60 [facility] Comment on above: Result Comment: Repo rted eGFR is based on the CKD-EPI 2020 equation using creatinine, age, and sex. Performed By: #### T YPEC #### [facility] (DEFAULT) [address] [place] [address] 84946 Glucose [Mass/Vol] 126 mg/dL Normal Nonfastin -179 mg/dL; Fastin-99 [facility] Comment on above: Performed By: #### T YPEC #### [facility] (DEFAULT) [address] [place] [address] 6[address]36 Osmolality [Osmolality] 313 mosm/kg High 278-305 [facility] Comment on above: Performed By: #### T YPEC #### [facility] (DEFAULT) [address] [place] [address] 44747 Potassium [Moles/Vol] 4.5 mmol/L Normal 3.5-5.0 [facility] Comment on above: Performed By: #### T YPEC #### [facility] (DEFAULT) [address] [place] [address] 05487 Sodium [Moles/Vol] 141 mmol/L Normal 135-145 [facility] Comment on above: Performed By: #### T YPEC #### [facility] (DEFAULT) [address] [place] [address] 98475 Urea nitrogen [Mass/Vol] 56 mg/dL High 7-25 [facility] Comment on above: Performed By: #### T YPEC #### [facility] (DEFAULT) [address] [place] [address] 31142 Urea nitrogen/Creatinine [Mass ratio] 41 mg/mg Normal [facility] Comment on above: Performed By: #### T YPEC #### [facility] (DEFAULT) [address] [place] [address] 19292 GLUCOSE POCon 08-12-2024 Glucose [Mass/Vol] 231 mg/dL High 70 - 179 mg/dL [facility] Interpretation and review of laboratory results Abnormal [facility] POC Sample Type [facility] Glucose [Mass/Vol] 208 mg/dL High 70 - 179 mg/dL [facility] Interpretation and review of laboratory results Abnormal [facility] POC Sample Type CAPBL [facility] Glucose [Mass/Vol] 160 mg/dL 70 - 179 mg/dL [facility] POC Sample Type CAPBL [facility] Glucose [Mass/Vol] 107 mg/dL 70 - 179 mg/dL [facility] POC Sample Type CAPBL [facility] MAGNESIUMon 08-12-2024 Interpretation and review of laboratory results Normal [facility] Magnesium [Mass/Vol] 2.2 mg/dL 1.6 - 2 .6 mg/dL [facility] Magnesium [Mass/Vol] 2.2 mg/dL Normal 1.6-2.6 [facility] Comment on above: Performed By: #### T YPEC #### [facility] (DEFAULT) [address] [place] [address] No Panel Informationon 08-12 [facility] SURG PATH REQUESTOrdered By: Renae Glez on 08-12-2024 Case Report [facility] Clinical History [id number] NVx dmjCbXZEplLGzU7MseaytSS jhEO2wYM6hbFkarXPxmWYtI KUjQnJoj1uex788gMBot9vp KTEXqhppyHu4zYwxI57la0H 3BcghC1bpHAWpAUdzTMDvFL ktiAZsINp1IWPueMCipqZcO zRhSLJkkQGwxVV9UDCnBP0t azbaJWscWHlkFSAchlL8NGO uvMNcF0QaNIHyUQ6wzflyTO G1VDwgBYEwECB3DuKmHXLuu 0Jkswm2GdGicMo2y8mnHCFw POOyuFzok7ivWLJ0ZZQfgHB iU3ccjR3aBOPgDU1fqivjw1 upUAnmIErgNZNqlOZ1inS4R ARolYApF6NvfZ4bTMOiZRKf wlQimQjtaX2wOwCsWQuwAxA vQy4NALgWApYpKGLfs6IhZC AtGUTGhEFbqq5nmAY6VTPXh 27rLeDxXICapNYddPWLgUS3 p4E3VkBuKz2adOExwMFtbBN luHW4j7C0EDDfv7BfAZYyZm xwYXJ9 [facility] For Immediate Release to Patient's MyChart? Yes Yes [facility] Gross Description q4qaxMSvMNVls5vbWQOt bGF uZzEwMzNcZnRuYmpcdWMxIH tccnRmMVxlcGljMTExMDVcY X2cdRvvsWp6rVjhRNUqubJ2 bMJcCNqtv5qbLSE3r9imyuh nZCGnUWwuKh9fxCNvvYtuZy SaVQNuVIa2tI36KJErxM1yd WEeWNmovmBzQPCkA6QyWZ0l MJrabWLkWZY2hLhqONRhphy bSnS1AVixVABeoqgiZIg5LM deALBwxPB6RDPpoEDtH8CvK NTeHP0swbq2WHG0QSerWMVi CyK8ASYgdHAgDCMzbDgzFDw st165JBZ4FxXlRUHyrfLilZ gjaB6pQwIeLBUScWJgk5JaP 1juEJ2kyQXuhhDfOOg8PQZd lZ1zw99mRBGdr2Gjfwu1SQe rSmNvEQKcL73faYAkqsFrZW dpdGggdGhlIHBhdGllbnQnc jDtML8qGOYkNKDfS1Gof9Ts j45jrxKzLaSpGiJxhQNtZJS lrpqtRbBgAUnwVkHrCoe7TE IgVGhlIHNwZWNpbWVuIGlzI SAqf6clihV3TGPjXywsw9Eh kWSyOHCufuKygOUcUB4aGTT jfxHtu5GdTB4mDXAwlxKjEj RuX36zgyVjHP4oHYExri6ej M5hEUKrYfGivFkhy7TgVKJk se9wGYExMxI6tNV1ieWkXiK iE80zbX8aJ6AkESAke8PsCM zxJV0hfI0hAwWbTVMwVVQju CMpIXYzoaCQHNMiLWTcRP7h zQh8ABbgCysFOBsnSyItDSE 6RVZtsa27GLC9ZxLhc3P9HO OiByMvGHZaZP7qdNkmWBAoY A1cGIHzL5yxhU6bhrf9IkLb SOLbAlV9MSKzgjJ4Met9YUM vKQfwa2hmg0KfPJNvAPn4hU vuNtDcUSJrd2jmyhTbYlBcG QPcQOIyVQVlfIHfY315e6dr f7xrwsMwiEG4MFXbLVK2XNy nsoHqluU8GFsmiZUaBmQ5ON vijzWaXArivrDkgxZvXpb5G MZjM186UZF0mVvog9hzXDJ8 XCOqFTClNeCyPp4pnVIoL57 0OYAaCUZPJMCleAd5CERqax YxzfEioMMDs999J027p6rxG XQrzaTxlWkNilnrm4ajR967 XHBhcGVydzEyMjQwXHBhcGV zwZN5SOOdSA0kuabiMWryJY djWIZzqkF0VGJoeZNsQ2VyA ATtWD3ytincCID3UKouYICz XBR6MpZoZVExa6Txhed5OsL dqe0jrw28SXS1l9CwkAhfWO L7VTV6EoSaBj8bhDQxEDCoZ N9yBwKqmRLzLICbhj29hYot DMenjiKmcR0aBnFzUZWjfLQ sQBDzTI3jhPVpKNFgyU0gvu xjXHBnYnJkcmhlYWRccGdic aTvVe5goVuoSNG4QRkpP3qf aR6xYlH6NKpcI4fsgZ6eSLg 5EHlccKK2HILstG7uXC7szw jqq5anCYmaPFmpUPXutkP1p uJ7DFQlnKXoE1UszP0lLPXb FO8ixvkoo7xcGGB5KJqwEWP eVXN0AnKtWGTkg9Xnbtl8Bk Mfr2ExeQBvQIqkD30oe792J MStbdOfQ2prgEBqgmcxyAYf cbcqYSijbfQ0IRQoFKXaWPr uXGYxXGZzMjJcbGFuZzEwMz NcaGljaFxmMVxkYmNoXGYxX FbxB0kdJzQbRjDiIkAFok2s k9NaWDWbqoZ9iVywRLDdg5D hv6UqVxBFURLmZ6SgDQ2umR NwUUEcni17 [facility] Microscopic Description t5bhbDSxDRCgzXEi ZjIyMDA cJMTjt0izROZvpJTqFkXlCa NcZnRuYmpcdWMxXGRlZmYwe 8daz336oLKnu1gbOXYrLoM0 wMEzGOMqmICkL011JREjURo uy1bcf9LpOMOsqGOka7H3JT YMmbsfpTc1kUjiG31cv5Q4Y mkbG0ooHDEuLQRfR1GtLA0y OBWpYsj0WLK7MSF7YHVpEPW iO4KcXT3fFDDioWAjJEm5p9 dffVwmAZUrKPR9r5ejDTcpx wPaSG2lkt5snKo6e8jaobBj XSOwXEKkdHVGBPHoZ8JikXe gYi0guXj4xOwfQletZHB7Zv x1GZ1xlh78vae2kLnvHMOof rrlYsZ5RSpqJNCbggmnZFx6 LMkgQVFrqWO0BIAvyWSfG3I aNCSzIC7rdav3IMT7GVrrSL KsQsX1TYFcvTGoMHZcjAgwC Pbaz655BYD4UjJjBH3qG4Jp j0C4fG4feMOeSEWjzGJmIwZ fMEZzyu7wgCPpUFctk6FkAJ N2yvW2pTVvrAEcTZVmFQ11B rxem5ApJzyxCUL5XEVmhvWb l4Tdf2teOeZblvSnS4sfN1Q yZHJoZWFkXHBnYnJkcmZvb3 Fnh5AxgVYucIe0y9gwPSNjC LFzpAsxp9exEDF5FAAiE0B5 iVCsh9ddDRmgEUOglRZ1ztK 3NDBcfXGpC4EafR9lBMSoLL 3ucdb9w8hsKJZ5OLgkGNEdK yC6fiA1PGOmhBGaRSPlkCrf SOxvl841SHD9IcArDJVnt9Y wL4UkjJwyM90qtTziT48iKT YurKukjJ9jxFmcwQ8vQhYaB nMyNFxxbFxwbGFpblxmMVxm xhOrVOnpittdYUGkEVxlW7h xEiSwDFPikVduGIbqu1KhBJ TnMACdFaMzQRHxjMXhm1Onw 2VbDtXipZBuqE2ggCjlkyP3 PAFpaCPpTs8tbYHoBtHusRX yfQ== [facility] Pathologic Diagnosis o1elsDWyNGXipWXmVTD wNVx coxZrHFPhjWWuW4AteizjEB alKI0jDZ8wrCuigXIfvJVjH JEzKzTnt7aes166lVTxu0wl CHKIvnvwmLu0j6qsVQAHeC4 wg9b6xP25YKYpnV5cfZLtDC mfmiQvSZaciyGqwcEoIbo2Q YT4kJsnYxkoiMK6mJGpmQT4 SBomc9KfgAypbLzzXPVwEBH oTSI2V3cvaLZ3cYPreUaopY WmLE2fu4crqAH3eqKiEFG4i EqgnNO6kDtjfqvet5ppiKZ1 hOI7NIbjtWT8XPzmUoJxT1w eYJWhvN4fK37aS4abZTIdeB tkFPuySLPxbPA7CTM6UWCij 1xsZXZlbHRleHRcJzAxXCdi Iwb4m0hpUMRmvY68dYOvrqV 7fVxmMVxmczIwXGxpMzYwXG ZpMTgwfXtcbGlzdGxldmVsX TmeqqBpijOmIiEvqHJ8IDdv HxIuEeWqvQW1COkoPxKxtLI 3GCgxjXSwlGG3BNquyBS0SC n2WGe0FUxvYZgtInh1kGfjd WI8SFrjoY6uFEXgN45rYkXw XuFnRO33KOwpy2HiCMGttIx hDATonV5eBrRrADtwyfXtht ZjbjIzXGxldmVsamMwXGxld cJrh9DtcpRtgUA6UDxyepEa rLE9yWqyRJCcE9R2R869OJd qgmBwvuLvSfQubmg5BQJlYR NqFgN0f6nnjDE4hDO6ZFwph KD0VHvsHrEtA0flNERhvR9b G66jG6frBNTwfIkkPJieANK sqWZ6ZKO1ULFlh8exGADvnW FyoABlHoKhGJekMxe9p4btX IPznV13kUXggqU8aWufEZhv czIwfXtcbGlzdGxldmVsXGx sneQpstWkBmIvqLO6RTofVs FoYtSaxTR4OFzlLmWbaDL5I XtjmXYqoJQ9GDxnqCT4HTf3 TUe7OYmjLShbVhp3kLlotEY 4UOxtrI7gMOEsY00cHmVzMe HqOZ17XDfum4NkBOTdaRxsU HPdoY0xAlZpZVplrwZhbxGe bjIzXGxldmVsamMwXGxldmV ag5CtlkYngDY6VGneohPbsC R6pVtyTBWmG4I9N654PIyri mUrkqBsDzOoqde4ASCkAJQs XpU3p0ovhPI7kFO1ELvrmEA 7HKyzTsGrT6ibHCNdfI3bH5 9iN6leTQWjsUhsOAhbOIFei WX9ACR0CUJlj2khNMAamMBe mQDoZjGzHHnrHga5w4lfWMY kaY47hRKmguS9oYoiEDuewx IwfXtcbGlzdGxldmVsXGxld kHnqqEaGjIwzMM7NXayWdSa GwPvwGC5QFojKpLqlRT6AGf hcWIlpML0ENmngXF3JLs8EQ e0LMdzAAcvBpe3aMoelBS8Z SamdO1mJABbZ49aQrPvQdRm RZ16IAnxj3EdNZRfmDsqWPO pdK7hPyHrBFndgeSzqxTdbw IzXGxldmVsamMwXGxldmVsc 6KukuBurSC8TTpmrtXqoQG9 cXrgTAUgF0B4U727TRueibU ntpGtYlBpenn4LKAuDMOlVi L6fO86BXltqPhkhQ21YFMtb CZcdEIvgEV3VRezcHlruF71 OZBfpEMjSBfyn5XlOZPhPqI 4EeYhVVDpqAovqL77KGAqoT HvM304ssImPBxvFS18ADMfq GVydzEyMjQwXHBhcGVyaDE1 XKJsJM8gqoipSSiaFKmbAWA otcZ4RWWguVSxN6AyUISeCB 5retrkBCC2ZDjsNMLhKUZ0H tCqUUTzh4Yoarm8HsBquCOs LSpnaMZkfgmzPPLjQyHdD2F oXPDoYDE1c79gY4zpZZJny9 BzeTpccGFyXGxpMzYwXGZpM FqmBHlaxbU0AYbotkKsoEo6 lVWiwHlnzF4cRbnpbdTtAMO nUEZQm2TdiYJzvh8rpH7qBR UsocMRcsUMTGvmM08oGUI8D GYaqSudf6UbWJnbAQ39bTLk ZWRccGFyfQ== [facility] Professional Interpretation Performed at: f0gugAXxDCCqwTWnAeOhVZO fJAVmz5foFTZejVFzQrRiDa NcZnRuYmpcdWMxXGRlZmYwe 1aru013wNIjb7bzNQJdJgR1 gQLfGEFvjFEtE954RMDePHh hf6dae9PeUKUemIGrz0Q1FQ DTpaqslXg7cZzdQ95dd2L2J jwuO9nxBWMxMHNiU5SrGF6u GOPoKco3SXB5ISX5HTXzTHJ kY6PiHC8vXFRrxAOeHIs4d5 fmvDxgVNDqGER0a0hvVEiry oKqNF7umz1xjZv3l7gpmpNi ISXnULVjrUTRPAAxH6CouIp fPd2oqMa5wOygNpazVUA3Kz a8KH9obk78ral9fSikAUJrv lhsYbJ5CArcKDUwyvcqTBv2 FBsbZITbxWT1FQIzuAOjH7Z hVLNgUX7dhsf0HRN7VMdqGE WcJaB3HXQgeQSdHYOhoOzcV Nilk873JKR1TaSwGM5yA9Ve a2U7vG0esBAnNSAiqNYrUtU mHQKsdr9koVPmFCvrl5MdIV N1hcK2sLLxvBNlPYEzUI72S toyi2ViJfgwWTF9ECQghvWi f5Tvk0nsXfTtisKhY8ptH1L yZHJoZWFkXHBnYnJkcmZvb3 Fyr8IljODrrSy2p1osESJyA EFegKlcy7lnZZA7RIBjA5E3 dOQbj6zySZhoQTCacCG5zeB 8CHMyeDCrG2EzwA7kBKEuTP 6ewhe1v0heNLV6ILdyNZAkB fB8voS3CDKsnXAlIKNbjHvn RDcfj985PET8ElItPHGrj0Z cY0WmqBxxJ82qvDngZ04qDP VwaQjniG5xcHqvmO2wTaCjG nMyNFxwYXJkXHBsYWluXGYx XGZzMjJcbGFuZzEwMzNcaGl jaFxmMVxkYmNoXGYxXGxvY2 ktVsMyZgMmLmGIS3PpL1AGS xKXWS7CSFfGSGwcL1LYQXVD WSJVWQ3NG5DWWQkMPy7BCPD YVgibgZUvILHjPBCHRFH5PH AojArbKQTbCJAuglAXv8p2i FE5mgccV6dycxB8EsUyWElb YXJ9 [facility] CBC,PLATELETSon 08-11-2024 Erythrocyte distribution width (RBC) [Ratio] 13.7 % 10.8 - 14.9 % [facility] Hematocrit (Bld) [Volume fraction] 43.2 % 34.9 - 44.3 % [facility] Hemoglobin (Bld) [Mass/Vol] 14 g/dL 11.4 - 15.2 g/dL [facility] Interpretation and review of laboratory results Abnormal [facility] MCH (RBC) [Entitic mass] 29.9 pg 25.9 - 33.9 pg [facility] MCHC (RBC) [Mass/Vol] 32.4 g/dL 31.4 - 35.9 g/dL [facility] MCV (RBC) [Entitic vol] 92.1 fL 79.6 - 97.7 fL [facility] Platelet mean volume (Bld) [Entitic vol] 11.5 fL 8.5 - 12.2 fL [facility] Platelets (Bld) [#/Vol] 240 10*3/uL 150 - 393 K/uL [facility] RBC (Bld) [#/Vol] 4.69 10*6/uL [facility] WBC (Bld) [#/Vol] 11.76 10*3/uL High 3.99 - 11.19 K/uL [facility] Hematocrit (Bld) [Volume fraction] 43.2 % Normal 34.9-44.3 [facility] Comment on above: Performed By: #### T YPEC #### [facility] (DEFAULT) [address] [address] Hemoglobin (Bld) [Mass/Vol] 14.0 g/dL Normal 11.4-15.2 [facility] Comment on above: Performed By: #### T YPEC #### [facility] (DEFAULT) [address] [address] MCV (RBC) [Entitic vol] 92.1 fL Normal 79.6-97.7 [facility] Comment on above: Performed By: #### T YPEC #### [facility] (DEFAULT) [address] [address] Mean Cell Hgb 29.9 pg Normal 25.9-33.9 [facility] Comment on above: Performed By: #### T YPEC #### [facility] (DEFAULT) [address] [address] Mean Cell Hgb Conc 32.4 g/dL Normal 31.4-35.9 [facility] Comment on above: Performed By: #### T YPEC #### [facility] (DEFAULT) [address] [address] Platelet mean volume (Bld) [Entitic vol] 11.5 fL Normal 8.5-12.2 [facility] Comment on above: Performed By: #### T YPEC #### [facility] (DEFAULT) [address] [address] Platelets (Bld) [#/Vol] 240 10*3/uL Normal 150-393 [facility] Comment on above: Performed By: #### T YPEC #### [facility] (DEFAULT) [address] [address] RBC (Bld) [#/Vol] 4.69 10*6/uL Normal 3.91-5.04 [facility] Comment on above: Performed By: #### T YPEC #### [facility] (DEFAULT) [address] [address] RBC Distribution 13.7 % Normal 10.8-14.9 [facility] Comment on above: Performed By: #### T YPEC #### [facility] (DEFAULT) [address] [address] WBC (Bld) [#/Vol] 11.76 10*3/uL High 3.99-11.19 [facility] Comment on above: Performed By: #### T YPEC #### [facility] (DEFAULT) [address] [place] [address] CHEM 7 (LYTES,BUN,CREA,GLUC) on 08-11-2024 Anion gap [Moles/Vol] 14 mmol/L 7 - 17 mmol/L [facility] Chloride [Moles/Vol] 103 mmol/L 98 - 10 8 [facility] CO2 [Moles/Vol] 26 mmol/L 21 - 31 mmol/L [facility] Creatinine [Mass/Vol] 1.32 mg/dL High 0.50 - 1.20 mg/dL [facility] eGFR, CKD-EPI, Female 41 Low - PINF [facility] Glucose [Mass/Vol] 127 mg/dL 70 - 179 mg/dL [facility] Interpretation and review of laboratory results Abnormal [facility] Osmolality Calc [Osmolality] 306 High [facility] Potassium [Moles/Vol] 4.6 mmol/L 3.5 - 5.0 mmol/L [facility] Sodium [Moles/Vol] 138 mmol/L 135 - 145 mmol/L [facility] Urea nitrogen [Mass/Vol] 53 mg/dL High 7 - 25 mg/dL [facility] Urea nitrogen/Creatinine [Mass ratio] 40 mg/mg [facility] Anion gap [Moles/Vol] 14 mmol/L Normal 7-17 [facility] Comment on above: Performed By: #### [facility] #### [facility] (DEFAULT) [address] [place] [address] Chloride [Moles/Vol] 103 mmol/L Normal 98-108 [facility] Comment on above: Performed By: #### [facility] #### [facility] (DEFAULT) [address] [place] [address] CO2 [Moles/Vol] 26 mmol/L Normal 21-31 [facility] Comment on above: Performed By: #### [facility] #### [facility] (DEFAULT) [address] [place] [address] Creatinine [Mass/Vol] 1.32 mg/dL High 0.50-1.20 [facility] Comment on above: Performed By: #### [facility] #### [facility] (DEFAULT) [address] [address] GFR/1.73 sq M.predicted among non-blacks MDRD (S/P/Bld) [Vol rate/Area] 41 mL/min/{1.73_m2} Low >=60 [facility] Comment on above: Result Comment: Repo rted eGFR is based on the CKD-EPI 2020 equation using creatinine, age, and sex. Performed By: #### [facility] #### [place] [facility] (DEFAULT) [address] [address] Glucose [Mass/Vol] 127 mg/dL Normal Nonfastin -179 mg/dL; Fastin-99 [facility] Comment on above: Performed By: #### H EMO #### [facility] (DEFAULT) [address] [address] Osmolality [Osmolality] 306 mosm/kg High 278-305 [facility] Comment on above: Performed By: #### H EMO #### [facility] (DEFAULT) [address] [address] Potassium [Moles/Vol] 4.6 mmol/L Normal 3.5-5.0 [facility] Comment on above: Performed By: #### H EMO #### [facility] (DEFAULT) [address] [address] Sodium [Moles/Vol] 138 mmol/L Normal 135-145 [facility] Comment on above: Performed By: #### H EMOGC #### [facility] (DEFAULT) [address] [address] Urea nitrogen [Mass/Vol] 53 mg/dL High 7-25 [facility] Comment on above: Performed By: #### H EMOGC #### [facility] (DEFAULT) [address] [place] [address] Urea nitrogen/Creatinine [Mass ratio] 40 mg/mg Normal [facility] Comment on above: Performed By: #### [facility] #### [facility] (DEFAULT) [address] [place] [address] GLUCOSE POCon 08-11-2024 Glucose [Mass/Vol] 213 mg/dL High 70 - 179 mg/dL [facility] Interpretation and review of laboratory results Abnormal [facility] POC Sample Type CAPBL [facility] Glucose [Mass/Vol] 255 mg/dL High 70 - 179 mg/dL [facility] Interpretation and review of laboratory results Abnormal [facility] POC Sample Type CAPBL [facility] Glucose [Mass/Vol] 190 mg/dL High 70 - 179 mg/dL [facility] Interpretation and review of laboratory results Abnormal [facility] POC Sample Type CAPBL [facility] Glucose [Mass/Vol] 205 mg/dL High 70 - 179 mg/dL [facility] Interpretation and review of laboratory results Abnormal [facility] POC Sample Type CAPBL [facility] MAGNESIUMon 08-11-2024 Interpretation and review of laboratory results Normal [facility] Magnesium [Mass/Vol] 1.9 mg/dL 1.6 - 2 .6 mg/dL [facility] Magnesium [Mass/Vol] 1.9 mg/dL Normal 1.6-2.6 [facility] Comment on above: Performed By: #### M [facility] #### [facility] (DEFAULT) [address] [place] [address] No Panel Informationon 08-11 [facility] BLOOD CULTUREon 08-10-2024 Bacteria identified Cx Nom (Unsp spec) NO GROWTH DAY [address] [facility] Comment on above: Order Comment: 2 [...] bottle. Performed By: #### T YPEC #### [facility] (DEFAULT) [address] [address] Bacteria identified Cx Nom (Unsp spec) NO GROWTH DAY [address] [facility] Comment on above: Order Comment: 2 [...] bottle. Performed By: #### B LDCULT #### [facility] (DEFAULT) [address] [address] CBC,PLATELETSon 08-10-2024 Erythrocyte distribution width (RBC) [Ratio] 13.3 % 10.8 - 14.9 % [facility] Hematocrit (Bld) [Volume fraction] 45.1 % High 34.9 - 44.3 % [facility] Hemoglobin (Bld) [Mass/Vol] 14.1 g/dL 11.4 - 15.2 g/dL [facility] Interpretation and review of laboratory results Abnormal [facility] MCH (RBC) [Entitic mass] 29.1 pg 25.9 - 33.9 pg [facility] MCHC (RBC) [Mass/Vol] 31.3 g/dL Low 31.4 - 35.9 g/dL [facility] MCV (RBC) [Entitic vol] 93 fL 79.6 - 97.7 fL [facility] Platelet mean volume (Bld) [Entitic vol] 11.4 fL 8.5 - 12.2 fL [facility] Platelets (Bld) [#/Vol] 216 10*3/uL 150 - 393 K/uL [facility] RBC (Bld) [#/Vol] 4.85 10*6/uL [facility] WBC (Bld) [#/Vol] 13.78 10*3/uL High 3.99 - 11.19 K/uL [facility] Hematocrit (Bld) [Volume fraction] 45.1 % High 34.9-44.3 [facility] Comment on above: Performed By: #### [facility] #### [facility] (DEFAULT) [address] [address] Hemoglobin (Bld) [Mass/Vol] 14.1 g/dL Normal 11.4-15.2 [facility] Comment on above: Performed By: #### H EMO #### [facility] (DEFAULT) [address] [address] MCV (RBC) [Entitic vol] 93.0 fL Normal 79.6-97.7 O [facility] Comment on above: Performed By: #### H EMO #### [facility] (DEFAULT) [address] [address] Mean Cell Hgb 29.1 pg Normal 25.9-33.9 [facility] Comment on above: Performed By: #### H EMO #### [facility] (DEFAULT) [address] [address] Mean Cell Hgb Conc 31.3 g/dL Low 31.4-35.9 [facility] Comment on above: Performed By: #### H EMOGC #### [facility] (DEFAULT) [address] [address] Platelet mean volume (Bld) [Entitic vol] 11.4 fL Normal 8.5-12.2 [facility] Comment on above: Performed By: #### H EMOGC #### [facility] (DEFAULT) [address] [place] [address] Platelets (Bld) [#/Vol] 216 10*3/uL Normal 150-393 [facility] Comment on above: Performed By: #### H EMOGC #### [facility] (DEFAULT) [address] [place] [address] RBC (Bld) [#/Vol] 4.85 10*6/uL Normal 3.91-5.04 [facility] Comment on above: Performed By: #### H EMOGC #### [facility] (DEFAULT) [address] [place] [address] RBC Distribution 13.3 % Normal 10.8-14.9 [facility] Comment on above: Performed By: #### H EMOGC #### [facility] (DEFAULT) [address] [place] [address] WBC (Bld) [#/Vol] 13.78 10*3/uL High 3.99-11.19 [facility] Comment on above: Performed By: #### [facility] #### [facility] (DEFAULT) [address] [place] [address] CHEM 7 (LYTES,BUN,CREA,GLUC) on 08-10-2024 Anion gap [Moles/Vol] 16 mmol/L 7 - 17 mmol/L [facility] Chloride [Moles/Vol] 103 mmol/L 98 - 10 8 mmol/L [facility] CO2 [Moles/Vol] 24 mmol/L 21 - 31 mmol/L [facility] Creatinine [Mass/Vol] 1.36 mg/dL High 0.50 - 1.20 mg/dL [facility] eGFR, CKD-EPI, Female 40 Low - PINF [facility] Glucose [Mass/Vol] 186 mg/dL High 70 - 179 mg/dL [facility] Interpretation and review of laboratory results Abnormal [facility] Osmolality Calc [Osmolality] 308 High [facility] Potassium [Moles/Vol] 4.9 mmol/L 3.5 - 5.0 mmol/L [facility] Sodium [Moles/Vol] 138 mmol/L 135 - 145 mmol/L [facility] Urea nitrogen [Mass/Vol] 47 mg/dL High 7 - 25 mg/dL [facility] Urea nitrogen/Creatinine [Mass ratio] 35 mg/mg [facility] Anion gap [Moles/Vol] 16 mmol/L Normal 7-17 [facility] Comment on above: Performed By: #### Jaiden NGUYEN CHM7 ####[facility] (DEFAULT)[address] [place] [address] Chloride [Moles/Vol] 103 mmol/L Normal 98-108 [facility] Comment on above: Performed By: #### Jaiden NGUYEN CHM7 ####[facility] (DEFAULT)[address] [place] [address] CO2 [Moles/Vol] 24 mmol/L Normal 21-31 [facility] Comment on above: Performed By: #### Jaiden NUGYEN CHM7 ####[facility] (DEFAULT)[address] [place] [address] Creatinine [Mass/Vol] 1.36 mg/dL High 0.50-1.20 [facility] Comment on above: Performed By: #### Jaiden NGUYEN CHM7 ####[facility] (DEFAULT)[address] [place] [address] GFR/1.73 sq M.predicted among non-blacks MDRD (S/P/Bld) [Vol rate/Area] 40 mL/min/{1.73_m2} Low >=60 [facility] Comment on above: Result Comment: Repo rted eGFR is based on the CKD-EPI 2020 equation using creatinine, age, and sex. Performed By: #### Jaiden NGUYEN CHM7 ####[facility] (DEFAULT)[address] [place] [address] Glucose [Mass/Vol] 186 mg/dL High Nonfastin -179 mg/dL; Fastin-99 [facility] Comment on above: Performed By: #### HEYDI PALACIOS7 ####[facility] (DEFAULT)[address] [place] [address] Osmolality [Osmolality] 308 mosm/kg High 278-305 [facility] Comment on above: Performed By: #### HEYDI PALACIOS7 ####[facility] (DEFAULT)[address] [facility] [address] Potassium [Moles/Vol] 4.9 mmol/L Normal 3.5-5.0 [facility] Comment on above: Performed By: #### HEYDI PALACIOS7 ####[facility] (DEFAULT)[address] [place] [address] Sodium [Moles/Vol] 138 mmol/L Normal 135-145 [facility] Comment on above: Performed By: #### HEYDI PALACIOS7 ####[facility] (DEFAULT)[address] [place] [address] Urea nitrogen [Mass/Vol] 47 mg/dL High 7-25 [facility] Comment on above: Performed By: #### Jaiden NGUYEN CHM7 ####[facility] (DEFAULT)[address] [facility] [place] [address] Urea nitrogen/Creatinine [Mass ratio] 35 mg/mg Normal [facility] Comment on above: Performed By: #### Jaiden NGUYEN CHM7 ####[facility] (DEFAULT)[address] [facility] [address] GLUCOSE POCon 08-10-2024 Glucose [Mass/Vol] 144 mg/dL 70 - 179 mg/dL [facility] POC Sample Type CAPBL [facility] Glucose [Mass/Vol] 177 mg/dL 70 - 179 mg/dL [facility] POC Sample [facility] Glucose [Mass/Vol] 180 mg/dL High 70 - 179 mg/dL [facility] Interpretation and review of laboratory results Abnormal [facility] POC Sample Type [facility] Glucose [Mass/Vol] 193 mg/dL High 70 - 179 mg/dL [facility] Interpretation and review of laboratory results Abnormal [facility]OC Sample [facility] Glucose [Mass/Vol] 200 mg/dL High 70 - 179 mg/dL [facility] Interpretation and review of laboratory results Abnormal [facility] POC Sample [facility] Glucose [Mass/Vol] 198 mg/dL High 70 - 179 mg/dL [facility] Interpretation and review of laboratory results Abnormal [facility] MAGNESIUMon 08-10-2024 Interpretation and review of laboratory results Normal [facility] Magnesium [Mass/Vol] 1.8 mg/dL 1.6 - 2 .6 mg/dL [facility] Magnesium [Mass/Vol] 1.8 mg/dL Normal 1.6-2.6 [facility] Comment on above: Performed By: #### M , [facility] ####[facility] (DEFAULT)[address] [place] [address] No Panel Informationon 08-10 [facility] URINE CULTUREOrdered By: Franklin Carcamo on 08-10-2024 Bacteria identified Cx Nom (Unsp spec) Growth [facility] Bacteria identified Cx Nom (Unsp spec) KLEBSIELLA PNEUMONIAE Abnormal [facility] Interpretation and review of laboratory results Abnormal [facility] CBC,PLATELETSon 08-09-2024 Erythrocyte distribution width (RBC) [Ratio] 13.5 % 10.8 - 14.9 % [facility] Hematocrit (Bld) [Volume fraction] 44.4 % High 34.9 - 44.3 % [facility] Hemoglobin (Bld) [Mass/Vol] 14.1 g/dL 11.4 - 15.2 g/dL [facility] Interpretation and review of laboratory results Abnormal [facility] MCH (RBC) [Entitic mass] 29.4 pg 25.9 - 33.9 pg [facility] MCHC (RBC) [Mass/Vol] 31.8 g/dL 31.4 - 35.9 g/dL [facility] MCV (RBC) [Entitic vol] 92.7 fL 79.6 - 97.7 fL [facility] Platelet mean volume (Bld) [Entitic vol] 11.5 fL 8.5 - 12.2 fL [facility] Platelets (Bld) [#/Vol] 226 10*3/uL 150 - 393 K/uL [facility] RBC (Bld) [#/Vol] 4.79 10*6/uL [facility] WBC (Bld) [#/Vol] 12.37 10*3/uL High 3.99 - 11.19 K/uL [facility] Hematocrit (Bld) [Volume fraction] 44.4 % High 34.9-44.3 [facility] Comment on above: Performed By: #### [facility] #### [facility] (DEFAULT) [address] [address] Hemoglobin (Bld) [Mass/Vol] 14.1 g/dL Normal 11.4-15.2 [facility] Comment on above: Performed By: #### [facility] #### [facility] (DEFAULT) [address] [place] [address] MCV (RBC) [Entitic vol] 92.7 fL Normal 79.6-97.7 [facility] Comment on above: Performed By: #### H EMOGC #### [facility] (DEFAULT) [address] [address] Mean Cell Hgb 29.4 pg Normal 25.9-33.9 [facility] Comment on above: Performed By: #### H EMOGC #### [facility] (DEFAULT) [address] [address] Mean Cell Hgb Conc 31.8 g/dL Normal 31.4-35.9 [facility] Comment on above: Performed By: #### H EMOGC #### [facility] (DEFAULT) [address] [address] Platelet mean volume (Bld) [Entitic vol] 11.5 fL Normal 8.5-12.2 [facility] Comment on above: Performed By: #### H EMOGC #### [facility] (DEFAULT) [address] [address] Platelets (Bld) [#/Vol] 226 10*3/uL Normal 150-393 [facility] Comment on above: Performed By: #### H EMOGC #### [facility] (DEFAULT) [address] [address] RBC (Bld) [#/Vol] 4.79 10*6/uL Normal 3.91-5.04 [facility] Comment on above: Performed By: #### H EMOGC #### [facility] (DEFAULT) [address] [address] RBC Distribution 13.5 % Normal 10.8-14.9 [facility] Comment on above: Performed By: #### H EMOGC #### [facility] (DEFAULT) [address] [address] WBC (Bld) [#/Vol] 12.37 10*3/uL High 3.99-11.19 [facility] Comment on above: Performed By: #### H EMOGC #### [facility] (DEFAULT) [address] [place] [address] CHEM 7 (LYTES,BUN,CREA,GLUC) on 08-09-2024 Anion gap [Moles/Vol] 14 mmol/L 7 - 17 mmol/L [facility] Chloride [Moles/Vol] 103 mmol/L 98 - 10 8 mmol/L [facility] CO2 [Moles/Vol] 26 mmol/L 21 - 31 mmol/L [facility] Creatinine [Mass/Vol] 1.35 mg/dL High 0.50 - 1.20 mg/dL [facility] eGFR, CKD-EPI, Female 40 Low - PINF [facility] Glucose [Mass/Vol] 182 mg/dL High 70 - 179 mg/dL [facility] Interpretation and review of laboratory results Abnormal [facility] Osmolality Calc [Osmolality] 305 [facility] Potassium [Moles/Vol] 4.9 mmol/L 3.5 - 5.0 mmol/L [facility] Sodium [Moles/Vol] 138 mmol/L 135 - 145 mmol/L [facility] Urea nitrogen [Mass/Vol] 38 mg/dL High 7 - 25 mg/dL [facility] Urea nitrogen/Creatinine [Mass ratio] 28 mg/mg [facility] Anion gap [Moles/Vol] 14 mmol/L Normal 7-17 [facility] Comment on above: Performed By: #### [facility] #### [facility] (DEFAULT) [address] [place] [address] Chloride [Moles/Vol] 103 mmol/L Normal 98-108 [facility] Comment on above: Performed By: #### [facility] #### [facility] (DEFAULT) [address] [place] [address] CO2 [Moles/Vol] 26 mmol/L Normal 21-31 [facility] Comment on above: Performed By: #### [facility] #### [facility] (DEFAULT) [address] [place] [address] Creatinine [Mass/Vol] 1.35 mg/dL High 0.50-1.20 [facility] Comment on above: Performed By: #### [facility] [facility] #### [facility] (DEFAULT) [address] [address] GFR/1.73 sq M.predicted among non-blacks MDRD (S/P/Bld) [Vol rate/Area] 40 mL/min/{1.73_m2} Low >=60 [facility] Comment on above: Result Comment: Repo rted eGFR is based on the CKD-EPI 2020 equation using creatinine, age, and sex. Performed By: #### [facility] #### [place] [facility] (DEFAULT) [address] [address] Glucose [Mass/Vol] 182 mg/dL High Nonfastin -179 mg/dL; Fastin-99 [facility] Comment on above: Performed By: #### H EMO #### [facility] (DEFAULT) [address] [address] Osmolality [Osmolality] 305 mosm/kg Normal 278-305 [facility] Comment on above: Performed By: #### H EMO #### [facility] (DEFAULT) [address] [address] Potassium [Moles/Vol] 4.9 mmol/L Normal 3.5-5.0 [facility] Comment on above: Performed By: #### [facility] #### [facility] (DEFAULT) [address] [address] Sodium [Moles/Vol] 138 mmol/L Normal 135-145 [facility] Comment on above: Performed By: #### H EMOGC #### [facility] (DEFAULT) [address] [address] Urea nitrogen [Mass/Vol] 38 mg/dL High 7-25 [facility] Comment on above: Performed By: #### H EMO #### [facility] (DEFAULT) [address] [place] [address] Urea nitrogen/Creatinine [Mass ratio] 28 mg/mg Normal [facility] Comment on above: Performed By: #### [facility] #### [facility] (DEFAULT) [address] [place] [address] [facility] POCon 08-09-2024 Glucose [Mass/Vol] 186 mg/dL High 70 - 179 mg/dL [facility] Interpretation and review of laboratory results Abnormal [facility] POC Sample Type CAPBL [facility] Glucose [Mass/Vol] 255 mg/dL High 70 - 179 mg/dL [facility] Interpretation and review of laboratory results Abnormal [facility] POC Sample Type CAPBL [facility] Glucose [Mass/Vol] 235 mg/dL High 70 - 179 mg/dL [facility] Interpretation and review of laboratory results Abnormal [facility] POC Sample Type CAPBL [facility] Glucose [Mass/Vol] 167 mg/dL 70 - 179 mg/dL [facility] POC Sample Type CAPBL [facility] INTERVENTIONAL UPPER ENDOSCO PYon 08-09-2024 Body surface area Derived from formula 1.9 m2 [facility] (narrative) [facility] MAGNESIUMon 08-09-2024 Interpretation and review of laboratory results Normal [facility] Magnesium [Mass/Vol] 1.8 mg/dL 1.6 - 2 .6 mg/dL [facility] Magnesium [Mass/Vol] 1.8 mg/dL Normal 1.6-2.6 [facility] Comment on above: Performed By: #### [facility] #### [facility] (DEFAULT) [address] [place] [address] No Panel Informationon 08-09 [facility] PT,INR,PTTon 08-09-2024 aPTT Coag (PPP) [Time] 38.4 s High [facility] INR Coag (Bld) [Relative time] 1 {INR} 0.9 - 1.1 [facility] Interpretation and review of laboratory results Abnormal [facility] PT Coag (PPP) [Time] 13 s [facility] aPTT Coag (Bld) [Time] 38.4 s High 24.0-34.3 [facility] Comment on above: Performed By: #### B LDCULT #### [facility] (DEFAULT) [address] [place] [address] INR Coag (PPP) [Relative time] 1.0 {INR} Normal 0.9-1.1 [facility] Comment on above: Performed By: #### B LDCULT #### [facility] (DEFAULT) [address] [place] [address] PT Coag (PPP) [Time] 13.0 s Normal 11.9-14.2 [facility] Comment on above: Performed By: #### B LDCULT #### [facility] (DEFAULT) [address] [place] [address] SURG PATH REQUESTon 08-10-19 Case Report [facility] Comment on above: Result Comment: Surg ical Pathology Report Case: [id number] Authorizing Provider: Judson Keith DO Collected: 08/09/2024 10:07 AM Ordering Location: [facility] Received: 08/09/2024 12:13 PM Pathologist: Renae Glez MD Specimen: STOMACH, gastric, r/o HP Performed By: #### S URGP #### [facility] (DEFAULT) [address] [address] Clinical History R/O HP. Associated Diagnosis: None. Medical History: No medical history provided. Normal [facility] Comment on above: Performed By: #### S URGP #### [facility] (DEFAULT) 410 [place] [address] Gross Description [facility] Comment on above: Result Comment: The specimen is received in one properly labeled container with the patient's name and accession number. A. The specimen is designated "gastric, r/o hp" and consists of five fragments of jackson-pink soft tissue, from 0.2 up to 0.6 cm in greatest dimension. TE 1 Lab Use Only: JobID [id number] Grosser for this case was: Sunshine Hidalgo Performed By: #### S URGP #### [facility] (DEFAULT) [address] [place] [address] Microscopic Description A microscopic examination was performed. [facility] Comment on above: Performed By: #### S URGP #### [facility] (DEFAULT) [address] [address] Pathologic Diagnosis [facility] Comment on above: Result Comment: Anjelica echols, biopsy: Focal erosion No Helicobacter pylori identified at 1005 EDT Performed By: #### S URGP #### [facility] (DEFAULT) [address] [address] Professional Interpretation Performed at: [facility] Comment on above: Result Comment: [facility] For Immediate Release [facility] Yes [address] [address] Performed By: #### S URGP #### [facility] (DEFAULT) [address] [address] CBC,PLATELETSon 08-08-2024 Erythrocyte distribution width (RBC) [Ratio] 13.6 % 10.8 - 14.9 % [facility] Hematocrit (Bld) [Volume fraction] 45.7 % High 34.9 - 44.3 % [facility] Hemoglobin (Bld) [Mass/Vol] 14.4 g/dL 11.4 - 15.2 g/dL [facility] Interpretation and review of laboratory results Abnormal [facility] MCH (RBC) [Entitic mass] 29.4 pg 25.9 - 33.9 pg [facility] MCHC (RBC) [Mass/Vol] 31.5 g/dL 31.4 - 35.9 g/dL [facility] MCV (RBC) [Entitic vol] 93.3 fL 79.6 - 97.7 fL [facility] Platelet mean volume (Bld) [Entitic vol] 10.9 fL 8.5 - 12.2 fL [facility] Platelets (Bld) [#/Vol] 212 10*3/uL 150 - 393 K/uL [facility] RBC (Bld) [#/Vol] 4.9 10*6/uL [facility] WBC (Bld) [#/Vol] 10.39 10*3/uL 3.99 - 11.19 K/uL [facility] Hematocrit (Bld) [Volume fraction] 45.7 % High 34.9-44.3 [facility] Comment on above: Performed By: #### [facility] #### [facility] (DEFAULT) [address] [address] Hemoglobin (Bld) [Mass/Vol] 14.4 g/dL Normal 11.4-15.2 [facility] Comment on above: Performed By: #### [facility] #### [facility] (DEFAULT) [address] [place] [address] MCV (RBC) [Entitic vol] 93.3 fL Normal 79.6-97.7 O [facility] Comment on above: Performed By: #### [facility] #### [facility] (DEFAULT) [address] [place] [address] Mean Cell Hgb 29.4 pg Normal 25.9-33.9 [facility] Comment on above: Performed By: #### [facility] #### [facility] (DEFAULT) [address] [place] [address] Mean Cell Hgb Conc 31.5 g/dL Normal 31.4-35.9 [facility] Comment on above: Performed By: #### H EMOGC #### [facility] (DEFAULT) [address] [place] [address] Platelet mean volume (Bld) [Entitic vol] 10.9 fL Normal 8.5-12.2 [facility] Comment on above: Performed By: #### H EMOGC #### [facility] (DEFAULT) [address] [place] [address] Platelets (Bld) [#/Vol] 212 10*3/uL Normal 150-393 [facility] Comment on above: Performed By: #### H EMOGC #### [facility] (DEFAULT) [address] [place] [address] RBC (Bld) [#/Vol] 4.90 10*6/uL Normal 3.91-5.04 [facility] Comment on above: Performed By: #### H EMOGC #### [facility] (DEFAULT) [address] [place] [address] RBC Distribution 13.6 % Normal 10.8-14.9 [facility] Comment on above: Performed By: #### H EMOGC #### [facility] (DEFAULT) [address] [place] [address] WBC (Bld) [#/Vol] 10.39 10*3/uL Normal 3.99-11.19 [facility] Comment on above: Performed By: #### H EMOGC #### [facility] (DEFAULT) [address] [place] [address] CHEM 7 (LYTES,BUN,CREA,GLUC) on 08-08-2024 Anion gap [Moles/Vol] 15 mmol/L 7 - 17 mmol/L [facility] Chloride [Moles/Vol] 104 mmol/L 98 - 10 8 mmol/L [facility] CO2 [Moles/Vol] 25 mmol/L 21 - 31 mmol/L [facility] Creatinine [Mass/Vol] 1.15 mg/dL 0.50 - 1.20 mg/dL [facility] eGFR, CKD-EPI, Female 48 Low - PINF [facility] Glucose [Mass/Vol] 111 mg/dL 70 - 179 mg/dL [facility] Interpretation and review of laboratory results Abnormal [facility] Osmolality Calc [Osmolality] [facility] Potassium [Moles/Vol] 4.3 mmol/L 3.5 - 5.0 mmol/L [facility] Sodium [Moles/Vol] 140 mmol/L 135 - 145 mmol/L [facility] Urea nitrogen [Mass/Vol] 35 mg/dL High 7 - 25 mg/dL [facility] Urea nitrogen/Creatinine [Mass ratio] 30 mg/mg [facility] Anion gap [Moles/Vol] 15 mmol/L Normal 7-17 [facility] Comment on above: Performed By: #### Jaiden NGUYEN CHM7 ####[facility] (DEFAULT)[address] [place] [address] Chloride [Moles/Vol] 104 mmol/L Normal 98-108 [facility] Comment on above: Performed By: #### Jaiden NGUYEN CHM7 ####[facility] (DEFAULT)[address] [place] [address] CO2 [Moles/Vol] 25 mmol/L Normal 21-31 [facility] Comment on above: Performed By: #### Jaiden NGUYEN CHM7 ####[facility] (DEFAULT)[address] [place] [address] Creatinine [Mass/Vol] 1.15 mg/dL Normal 0.50-1.20 [facility] Comment on above: Performed By: #### Jaiden NGUYEN CHM7 ####[facility] (DEFAULT)[address] [place] [address] GFR/1.73 sq M.predicted among non-blacks MDRD (S/P/Bld) [Vol rate/Area] 48 mL/min/{1.73_m2} Low >=60 [facility] Comment on above: Result Comment: Repo rted eGFR is based on the CKD-EPI 2020 equation using creatinine, age, and sex. Performed By: #### HEYDI PALACIOS7 ####[place] [facility] (DEFAULT)[address] [place] [address] Glucose [Mass/Vol] 111 mg/dL Normal Nonfastin -179 mg/dL; Fastin-99 [facility] Comment on above: Performed By: #### HEYDI PALACIOS7 ####[place] [facility] (DEFAULT)[address] [place] [address] Osmolality [Osmolality] 302 mosm/kg Normal 278-305 [facility] Comment on above: Performed By: #### CAMERON PALACIOS ####[place] [facility] (DEFAULT)[address] [place] [address] Potassium [Moles/Vol] 4.3 mmol/L Normal 3.5-5.0 [facility] Comment on above: Performed By: #### HEYDI PALACIOS7 ####[facility] (DEFAULT)[address] [place] [address] Sodium [Moles/Vol] 140 mmol/L Normal 135-145 [facility] Comment on above: Performed By: #### HEYDI PALACIOS7 ####[place] [facility] (DEFAULT)[address] [place] [address] Urea nitrogen [Mass/Vol] 35 mg/dL High 7-25 [facility] Comment on above: Performed By: #### HEYDI PALACIOS7 ####[facility] (DEFAULT)[address] [place] [address] Urea nitrogen/Creatinine [Mass ratio] 30 mg/mg Normal [facility] Comment on above: Performed By: #### M CHM7 ####[facility] (DEFAULT)[address] [place] [address] CT HEAD WITHOUT CONTRASTon 0 08-08-2024 CT [...] have reviewed and approved this report. Normal [facility] CT Head WO contraston 2024 [facility] Study observation (narrative) [facility] GLUCOSE POCon 08-08-2024 Glucose [Mass/Vol] 150 mg/dL 70 - 179 mg/dL [facility] POC Sample Type [facility] Glucose [Mass/Vol] 148 mg/dL 70 - 179 mg/dL [facility] POC Sample Type CAPBL [facility] Glucose [Mass/Vol] 192 mg/dL High 70 - 179 mg/dL [facility] Interpretation and review of laboratory results Abnormal [facility] POC Sample Type CAP[facility] Glucose [Mass/Vol] 198 mg/dL High 70 - 179 mg/dL [facility] Interpretation and review of laboratory results Abnormal [facility] POC Sample Type CAPBL [facility] Glucose [Mass/Vol] 186 mg/dL High 70 - 179 mg/dL [facility] Interpretation and review of laboratory results Abnormal [facility] POC Sample Type CAPBL [facility]-08-2024 Interpretation and review of laboratory results Normal [facility] Magnesium [Mass/Vol] 1.7 mg/dL 1.6 - 2 .6 mg/dL [facility] Magnesium [Mass/Vol] 1.7 mg/dL Normal 1.6-2.6 [facility] Comment on above: Performed By: #### M [facility] ####[facility] (DEFAULT)[address] [place] [address] No Panel Informationon 08-08 [facility] URINALYSIS REFLEX TO CULTURE PERFORMABLEOrdered By: Danya Yates on 08-08-2024 Appearance (U) Cloudy Abnormal Clear [facility] Bacteria LM Ql (Urine sed) PRESENT Abnormal ABSENT [facility] Color (U) Yellow Yellow [facility] Epithelial cells.squamous LM Ql (Urine sed) 0-2/hpf 0-2/hpf, 3-5/hpf = 1+ [facility] Glucose Test strip (U) [Mass/Vol] Negative Negative [facility] Interpretation and review of laboratory results [facility] Ketones (U) [Mass/Vol] Trace Abnormal Negative OS U [facility] Leukocyte esterase Test strip Ql (U) Large Abnormal Negative U [facility] Nitrite Ql (U) Positive Abnormal Negative [facility] pH (U) 7.0 [pH] 5.0 - 7.0 [facility] Protein (U) [Mass/Vol] Trace Abnormal Negative OS U [facility] RBC (U) [#/Vol] Trace Abnormal Negative [facility] RBC LM.HPF (Urine sed) [#/Area] 6-10 Abnormal [facility] Specific gravity (U) [Rel density] 1.023 1.001 - 1.035 [facility] Urobilinogen (U) [Mass/Vol] 1.0 E.U./dL 0.2 E.U/dL, 1.0 E.U/dL [facility] WBC LM.HPF (Urine sed) [#/Area] /[HPF] [facility] URINALYSIS REFLEX TO CULTURE PERFORMABLEon 08-08-2024 Appearance (U) Cloudy Abnormal Clear [facility] Comment on above: Order Comment: For i ndwelling catheters, specimen collection is acceptable on catheter day 1 and 2 only. ? Performed By: #### T YPEC #### [facility] (DEFAULT) [address] [address] Bacteria PRESENT Abnormal ABSENT [facility] Comment on above: Order Comment: For i ndwelling catheters, specimen collection is acceptable on catheter day 1 and 2 only. ? Performed By: #### T YPEC #### [facility] (DEFAULT) [address] [address] Blood Urine Trace Abnormal Negative [facility] Comment on above: Order Comment: For i ndwelling catheters, specimen collection is acceptable on catheter day 1 and 2 only. ? Performed By: #### T YPEC #### [facility] (DEFAULT) [address] [place] [address] Color (U) Yellow Normal Yellow [facility] Comment on above: Order Comment: For i ndwelling catheters, specimen collection is acceptable on catheter day 1 and 2 only. ? Performed By: #### T YPEC #### [facility] (DEFAULT) [address] [place] [address] Glucose Ql (U) Negative Normal Negative [facility] Comment on above: Order Comment: For i ndwelling catheters, specimen collection is acceptable on catheter day 1 and 2 only. ? Performed By: #### T YPEC #### [facility] (DEFAULT) [address] [place] [address] Ketones Ql (U) Trace Abnormal Negative [facility] Comment on above: Order Comment: For i ndwelling catheters, specimen collection is acceptable on catheter day 1 and 2 only. ? Performed By: #### T YPEC #### [facility] (DEFAULT) [address] [place] [address] Leukocyte esterase Test strip Ql (U) Large Abnormal Negative [facility] Comment on above: Order Comment: For i ndwelling catheters, specimen collection is acceptable on catheter day 1 and 2 only. ? Performed By: #### T YPEC #### [facility] (DEFAULT) [address] [place] [address] Nitrites Urine Positive Abnormal Negative [facility] Comment on above: Order Comment: For i ndwelling catheters, specimen collection is acceptable on catheter day 1 and 2 only. ? Performed By: #### T YPEC #### [facility] (DEFAULT) [address] [place] [address] pH (U) 7.0 [pH] Normal 5.0-7.0 [facility] Comment on above: Order Comment: For i ndwelling catheters, specimen collection is acceptable on catheter day 1 and 2 only. ? Performed By: #### T YPEC #### [facility] (DEFAULT) [address] [place] [address] Protein Urine Trace Abnormal Negative [facility] Comment on above: Order Comment: For i ndwelling catheters, specimen collection is acceptable on catheter day 1 and 2 only. ? Performed By: #### T YPEC #### [facility] (DEFAULT) [address] [address] RBC Urine 6-10 Abnormal 0-2 [facility] Comment on above: Order Comment: For i ndwelling catheters, specimen collection is acceptable on catheter day 1 and 2 only. ? Performed By: #### T YPEC #### [facility] (DEFAULT) [address] [address] Specific [place] Urine 1.023 Normal 1.001-1.035 [facility] Comment on above: Order Comment: For i ndwelling catheters, specimen collection is acceptable on catheter day 1 and 2 only. ? Performed By: #### T YPEC #### [facility] (DEFAULT) [address] [address] Squamous/Epithelial Cells, Urine 0-2/hpf Normal 0-2/hpf, 3-5/hpf = 1+ [facility] Comment on above: Order Comment: For i ndwelling catheters, specimen collection is acceptable on catheter day 1 and 2 only. ? Performed By: #### T YPEC #### [facility] (DEFAULT) [address] [address] Urobilinogen Urine 1.0 E.U./dL Normal 0.2 E.U/d L, 1.0 E.U/dL [facility] Comment on above: Order Comment: For i ndwelling catheters, specimen collection is acceptable on catheter day 1 and 2 only. ? Performed By: #### T YPEC #### [facility] (DEFAULT) [address] [address] WBC LM.HPF (Urine sed) [#/Area] /[HPF] Abnormal 0 - 5 [facility] Comment on above: Order Comment: For i ndwelling catheters, specimen collection is acceptable on catheter day 1 and 2 only. ? Performed By: #### T YPEC #### [facility] (DEFAULT) [address] [address] URINE CULTUREon 08-08-2024 Amikacin [Susceptibility] <= Invalid Interpretation Code [facility] Comment on above: Order Comment: For [...] ? Performed By: #### T YPEC #### [facility] (DEFAULT) [address] [place] [address] Ampicillin [Susceptibility] >=[address] [facility] Comment on above: Order Comment: For [...] ? Performed By: #### T YPEC #### [facility] (DEFAULT) [address] [place] [address] Ampicillin+Sulbactam [Susceptibility] >=[address] [facility] Comment on above: Order Comment: For [...] ? Performed By: #### T YPEC #### [facility] (DEFAULT) [address] [place] [address] ceFAZolin [Susceptibility] >= Resistant [facility] Comment on above: Order Comment: For [...] #### [facility] (DEFAULT) [address] [address] Cefepime [Susceptibility] <= Invalid Interpretation Code [facility] Comment on above: Order Comment: For [...] Performed By: #### T YPEC #### [place] [facility] (DEFAULT) [address] [address] cefTRIAXone [Susceptibility] <= Invalid Interpretation Code [facility] Comment on above: Order Comment: For [...] #### [facility] (DEFAULT) [address] [address] Ciprofloxacin [Susceptibility] >= Resistant [facility] Comment on above: Order Comment: For [...] ? Performed By: #### T YPEC #### [facility] (DEFAULT) [address] [address] Ertapenem [Susceptibility] <= Invalid Interpretation Code [facility] Comment on above: Order Comment: For [...] #### [facility] (DEFAULT) [address] [address] Gentamicin [Susceptibility] <= Invalid Interpretation Code [facility] Comment on above: Order Comment: For [...] ? Performed By: #### T YPEC #### [facility] (DEFAULT) [address] [address] levoFLOXacin [Susceptibility] >= Resistant [facility] Comment on above: Order Comment: For [...] #### [facility] (DEFAULT) [address] [address] Nitrofurantoin [Susceptibility] 128 ug/mL Resistant [facility] Comment on above: Order Comment: For [...] #### U [facility] (DEFAULT) [address] [place] [address] Piperacillin+Tazobactam [Susceptibility] 8 ug/mL Invalid Interpretation Code [facility] Comment on above: Order Comment: For [...] ? Performed By: #### T YPEC #### [facility] (DEFAULT) [address] [place] [address] Trimethoprim+Sulfametho xazole [Susceptibility] <= Invalid Interpretation Code [facility] Comment on above: Order Comment: For [...] ? Performed By: #### T YPEC #### [facility] (DEFAULT) [address] [place] [address] CBC,PLATELETSon 08-07-2024 Erythrocyte distribution width (RBC) [Ratio] 13.9 % 10.8 - 14.9 % [facility] Hematocrit (Bld) [Volume fraction] 43.1 % 34.9 - 44.3 % [facility] Hemoglobin (Bld) [Mass/Vol] 13.7 g/dL 11.4 - 15.2 g/dL [facility] Interpretation and review of laboratory results Abnormal [facility] MCH (RBC) [Entitic mass] 29.6 pg 25.9 - 33.9 pg [facility] MCHC (RBC) [Mass/Vol] 31.8 g/dL 31.4 - 35.9 g/dL [facility] MCV (RBC) [Entitic vol] 93.1 fL 79.6 - 97.7 fL [facility] Platelet mean volume (Bld) [Entitic vol] 11.1 fL 8.5 - 12.2 fL [facility] Platelets (Bld) [#/Vol] 214 10*3/uL 150 - 393 K/uL [facility] RBC (d) [#/Vol] 4.63 10*6/[facility] [#/Vol] 11.3 10*3/uL High 3.99 - 11.19 K/uL [facility] CHEM 7 (LYTES,BUN,CREA,GLUC) on 08-07-2024 Anion gap [Moles/Vol] 13 mmol/L 7 - 17 mmol/L [facility] Chloride [Moles/Vol] 105 mmol/L 98 - 10 8 mmol/L [facility] CO2 [Moles/Vol] 28 mmol/L 21 - 31 mmol/L [facility] Creatinine [Mass/Vol] 1.19 mg/dL 0.50 - 1.20 mg/dL [facility] eGFR, CKD-EPI, Female 47 Low - PINF [facility] Glucose [Mass/Vol] 90 mg/dL 70 - 179 mg/dL [facility] Interpretation and review of laboratory results Abnormal [facility] Osmolality Calc [Osmolality] 304 [facility] Potassium [Moles/Vol] 4.2 mmol/L 3.5 - 5.0 mmol/L [facility] Sodium [Moles/Vol] 142 mmol/L 135 - 145 mmol/L [facility] Urea nitrogen [Mass/Vol] 34 mg/dL High 7 - 25 mg/dL [facility] Urea nitrogen/Creatinine [Mass ratio] 29 mg/mg [facility] GLUCOSE POCon 08-07-2024 Glucose [Mass/Vol] 185 mg/dL High 70 - 179 mg/dL [facility] Interpretation and review of laboratory results Abnormal [facility] POC Sample Type CAPBL [facility] Glucose [Mass/Vol] 106 mg/dL 70 - 179 mg/dL [facility] POC Sample Type [facility] Glucose [Mass/Vol] 104 mg/dL 70 - 179 mg/dL [facility] POC Sample Type CAPBL [facility] MAGNESIUMon 08-07-2024 Interpretation and review of laboratory results Normal [facility] Magnesium [Mass/Vol] 1.8 mg/dL 1.6 - 2 .6 mg/dL [facility] No Panel Informationon 08-07 [facility] CBC,PLATELETSon 08-06-2024 Hematocrit (Bld) [Volume fraction] 43.1 % Normal 34.9-44.3 [facility] Comment on above: Performed By: #### X M #### [facility] (DEFAULT) [address] [place] [address] Hemoglobin (Bld) [Mass/Vol] 13.7 g/dL Normal 11.4-15.2 [facility] Comment on above: Performed By: #### X M #### [facility] (DEFAULT) [address] [place] [address] MCV (RBC) [Entitic vol] 93.1 fL Normal 79.6-97.7 O [facility] Comment on above: Performed By: #### X M #### [facility] (DEFAULT) [address] [place] [address] Mean Cell Hgb 29.6 pg Normal 25.9-33.9 [facility] Comment on above: Performed By: #### X M #### [facility] (DEFAULT) [address] [place] [address] Mean Cell Hgb Conc 31.8 g/dL Normal 31.4-35.9 [facility] Comment on above: Performed By: #### X M #### [facility] (DEFAULT) [address] [place] [address] Platelet mean volume (Bld) [Entitic vol] 11.1 fL Normal 8.5-12.2 [facility] Comment on above: Performed By: #### X M #### [facility] (DEFAULT) [address] [place] [address] Platelets (Bld) [#/Vol] 214 10*3/uL Normal 150-393 [facility] Comment on above: Performed By: #### X M #### [facility] (DEFAULT) [address] [place] [address] RBC (Bld) [#/Vol] 4.63 10*6/uL Normal 3.91-5.04 [facility] Comment on above: Performed By: #### X M #### [facility] (DEFAULT) [address] [place] [address] RBC Distribution 13.9 % Normal 10.8-14.9 [facility] Comment on above: Performed By: #### X M #### [facility] (DEFAULT) [address] [place] [address] WBC (Bld) [#/Vol] 11.30 10*3/uL High 3.99-11.19 [facility] Comment on above: Performed By: #### X M #### [facility] (DEFAULT) [address] [place] [address] Erythrocyte distribution width (RBC) [Ratio] 13.9 % 10.8 - 14.9 % [facility] Hematocrit (Bld) [Volume fraction] 44 % 34.9 - 44.3 % [facility] Hemoglobin (Bld) [Mass/Vol] 13.9 g/dL 11.4 - 15.2 g/dL [facility] Interpretation and review of laboratory results Abnormal [facility] MCH (RBC) [Entitic mass] 29.1 pg 25.9 - 33.9 pg [facility] MCHC (RBC) [Mass/Vol] 31.6 g/dL 31.4 - 35.9 g/dL [facility] MCV (RBC) [Entitic vol] 92.2 fL 79.6 - 97.7 fL [facility] Platelet mean volume (Bld) [Entitic vol] 10.7 fL 8.5 - 12.2 fL [facility] Platelets (Bld) [#/Vol] 216 10*3/uL 150 - 393 K/uL [facility] RBC (Bld) [#/Vol] 4.77 10*6/uL [facility] WBC (Bld) [#/Vol] 12.14 10*3/uL High 3.99 - 11.19 K/uL [facility] CHEM 7 (LYTES,BUN,CREA,GLUC) on 08-06-2024 Anion gap [Moles/Vol] 13 mmol/L Normal 7-17 [facility] Comment on above: Performed By: #### Jaiden NGUYEN CHM7 ####[facility] (DEFAULT)[address] [place] [address] Chloride [Moles/Vol] 105 mmol/L Normal 98-108 [facility] Comment on above: Performed By: #### Jaiden NGUYEN CHM7 ####[facility] (DEFAULT)[address] [place] [address] CO2 [Moles/Vol] 28 mmol/L Normal 21-31 [facility] Comment on above: Performed By: #### Jaiden NGUYEN CHM7 ####[facility] (DEFAULT)[address] [place] [address] Creatinine [Mass/Vol] 1.19 mg/dL Normal 0.50-1.20 [facility] Comment on above: Performed By: #### Jaiden NGUYEN CHM7 ####[facility] (DEFAULT)[address] [place] [address] GFR/1.73 sq M.predicted among non-blacks MDRD (S/P/Bld) [Vol rate/Area] 47 mL/min/{1.73_m2} Low >=60 [facility] Comment on above: Result Comment: Repo rted eGFR is based on the CKD-EPI 2020 equation using creatinine, age, and sex. Performed By: #### HEYDI PALACIOS7 ####[facility] (DEFAULT)[address] [place] [address] Glucose [Mass/Vol] 90 mg/dL Normal Nonfastin -179 mg/dL; Fastin-99 [facility] Comment on above: Performed By: #### HEYDI PALACIOS7 ####[place] [facility] (DEFAULT)[address] [place] [address] Osmolality [Osmolality] 304 mosm/kg Normal 278-305 [facility] Comment on above: Performed By: #### HEYDI PALACIOS7 ####[facility] (DEFAULT)[address] [place] [address] Potassium [Moles/Vol] 4.2 mmol/L Normal 3.5-5.0 [facility] Comment on above: Performed By: #### CAMERON PALACIOS ####[facility] (DEFAULT)[address] [place] [address] Sodium [Moles/Vol] 142 mmol/L Normal 135-145 [facility] Comment on above: Performed By: #### HEYDI PALACIOS7 ####[facility] (DEFAULT)[address] [place] [address] Urea nitrogen [Mass/Vol] 34 mg/dL High 7-25 [facility] Comment on above: Performed By: #### HEYDI PALACIOS7 ####[facility] (DEFAULT)[address] [place] [address] Urea nitrogen/Creatinine [Mass ratio] 29 mg/mg Normal [facility] Comment on above: Performed By: #### HEYDI PALACIOS7 ####[facility] (DEFAULT)[address] [place] [address] Anion gap [Moles/Vol] 14 mmol/L 7 - 17 mmol/L [facility] Chloride [Moles/Vol] 107 mmol/L 98 - 10 8 [facility]/L [facility] CO2 [Moles/Vol] 27 mmol/L 21 - 31 mmol/L [facility] Creatinine [Mass/Vol] 1.19 mg/dL 0.50 - 1.20 mg/dL [facility] eGFR, CKD-EPI, Female 47 Low - PINF [facility] Glucose [Mass/Vol] 88 mg/dL 70 - 179 mg/dL [facility] Interpretation and review of laboratory results Abnormal [facility] Osmolality Calc [Osmolality] 307 [facility] Potassium [Moles/Vol] 3.9 mmol/L 3.5 - 5.0 mmol/L [facility] Sodium [Moles/Vol] 144 mmol/L 135 - 145 mmol/L [facility] Urea nitrogen [Mass/Vol] 34 mg/dL High 7 - 25 mg/dL [facility] Urea nitrogen/Creatinine [Mass ratio] 29 mg/mg [facility] GLUCOSE POCon 08-06-2024 Glucose [Mass/Vol] 166 mg/dL 70 - 179 mg/dL [facility] Glucose [Mass/Vol] 106 mg/dL 70 - 179 mg/dL [facility] Glucose [Mass/Vol] 100 mg/dL 70 - 179 mg/dL [facility] POC Sample Type [facility] Glucose [Mass/Vol] 219 mg/dL High 70 - 179 mg/dL [facility] Interpretation and review of laboratory results Abnormal [facility] Glucose [Mass/Vol] 249 mg/dL High 70 - 179 mg/dL [facility] Glucose [Mass/Vol] 178 mg/dL 70 - 179 mg/dL [facility] Glucose [Mass/Vol] 194 mg/dL High 70 - 179 mg/dL [facility] Glucose [Mass/Vol] 93 mg/dL 70 - 179 mg/dL [facility] POC Sample Type [facility] IONIZED CALCIUM, WHOLE BLOOD Ordered By: Zuleika Blunt on 08-06-2024 Calcium.ionized (Bld) [Moles/Vol] 4.72 mg/dL 4.60 - 5.30 mg/dL [facility] Interpretation and review of laboratory results Normal [facility] MAGNESIUMon 08-06-2024 Magnesium [Mass/Vol] 1.8 mg/dL Normal 1.6-2.6 [facility] Comment on above: Performed By: #### M [facility] ####[facility] (DEFAULT)[address] [place] [address] Magnesium [Mass/Vol] 2.4 mg/dL 1.6 - 2 .6 mg/dL [facility] No Panel Informationon 08-06 POC Sample Type [facility] Interpretation and review of laboratory results Abnormal [facility] POC Sample Type [facility] Interpretation and review of laboratory results Normal [facility] PHOSPHATE, INORGANICon 08-06 Phosphate [Mass/Vol] 3.2 mg/dL 2.2 - 4 .6 mg/dL [facility] RF videography Hypopharynx a nd Esophagus Views W liquid and paste contrast PO during swallowingon 08-06-2024 RADIOLOGY RADIOLOGY [facility] Radiology Study observation (narrative) [facility] RF videography Hypopharynx a nd Esophagus Views W liquid and paste contrast PO during swallowingOrdered By: Gerry Resendez on 08-06-2024 [facility] Work Phone: SPEECH MODIFIED BARIUM SWALL OWon 08-06-2024 [facility] XR FLUORO MODIFIED BARIUM SW [...] for specific therapeutic recommendations, please see the train brake operator report of the speech pathologist. Examination performed by ARCADIO Nicole, under the direct supervision of Gerry Resendez M.D., who was immediately available on site during the examination. I personally viewed and interpreted these images and I have reviewed and approved this report. Normal [facility] CBC,PLATELETSon 08-05-2024 Hematocrit (Bld) [Volume fraction] 44.0 % Normal 34.9-44.3 [facility] Comment on above: Performed By: #### B LDCULT #### [facility] (DEFAULT) [address] [address] Hemoglobin (Bld) [Mass/Vol] 13.9 g/dL Normal 11.4-15.2 [facility] Comment on above: Performed By: #### B LDCULT #### [facility] (DEFAULT) [address] [address] MCV (RBC) [Entitic vol] 92.2 fL Normal 79.6-97.7 O [facility] Comment on above: Performed By: #### B LDCULT #### [facility] (DEFAULT) [address] [address] Mean Cell Hgb 29.1 pg Normal 25.9-33.9 [facility] Comment on above: Performed By: #### B LDCULT #### [facility] (DEFAULT) [address] [place] [address] Mean Cell Hgb Conc 31.6 g/dL Normal 31.4-35.9 [facility] Comment on above: Performed By: #### B LDCULT #### [facility] (DEFAULT) [address] [place] [address] Platelet mean volume (Bld) [Entitic vol] 10.7 fL Normal 8.5-12.2 [facility] Comment on above: Performed By: #### B LDCULT #### [facility] (DEFAULT) [address] [place] [address] Platelets (Bld) [#/Vol] 216 10*3/uL Normal 150-393 [facility] Comment on above: Performed By: #### B LDCULT #### [facility] (DEFAULT) [address] [place] [address] RBC (Bld) [#/Vol] 4.77 10*6/uL Normal 3.91-5.04 [facility] Comment on above: Performed By: #### B LDCULT #### [facility] (DEFAULT) [address] [place] [address] RBC Distribution 13.9 % Normal 10.8-14.9 [facility] Comment on above: Performed By: #### B LDCULT #### [facility] (DEFAULT) [address] [place] [address] WBC (Bld) [#/Vol] 12.14 10*3/uL High 3.99-11.19 [facility] Comment on above: Performed By: #### B LDCULT #### [facility] (DEFAULT) [address] [place] [address] Erythrocyte distribution width (RBC) [Ratio] 13.9 % 10.8 - 14.9 % [facility] Hematocrit (Bld) [Volume fraction] 39.6 % 34.9 - 44.3 % [facility] Hemoglobin (Bld) [Mass/Vol] 12.6 g/dL 11.4 - 15.2 g/dL [facility] Interpretation and review of laboratory results Normal [facility] MCH (RBC) [Entitic mass] 29.3 pg 25.9 - 33.9 pg [facility] MCHC (RBC) [Mass/Vol] 31.8 g/dL 31.4 - 35.9 g/dL [facility] MCV (RBC) [Entitic vol] 92.1 fL 79.6 - 97.7 fL [facility] Platelet mean volume (Bld) [Entitic vol] 10.7 fL 8.5 - 12.2 fL [facility] Platelets (Bld) [#/Vol] 198 10*3/uL 150 - 393 K/uL [facility] RBC (Bld) [#/Vol] 4.3 10*6/uL [facility] WBC (Bld) [#/Vol] 10.61 10*3/uL 3.99 - 11.19 K/uL [facility] Hematocrit (Bld) [Volume fraction] 39.6 % Normal 34.9-44.3 [facility] Comment on above: Performed By: #### [facility] ####[facility] (DEFAULT)[address] [place] [address] Hemoglobin (Bld) [Mass/Vol] 12.6 g/dL Normal 11.4-15.2 [facility] Comment on above: Performed By: #### [facility] ####[facility] (DEFAULT)[address] [place] [address] MCV (RBC) [Entitic vol] 92.1 fL Normal 79.6-97.7 O [facility] Comment on above: Performed By: #### [facility] ####[facility] (DEFAULT)[address] [facility] [address] Mean Cell Hgb 29.3 pg Normal 25.9-33.9 [facility] Comment on above: Performed By: #### H EMOGC ####[facility] (DEFAULT)[address] [place] [address] Mean Cell Hgb Conc 31.8 g/dL Normal 31.4-35.9 [facility] Comment on above: Performed By: #### H EMOGC ####[facility] (DEFAULT)[address] [facility] [address] Platelet mean volume (Bld) [Entitic vol] 10.7 fL Normal 8.5-12.2 [facility] Comment on above: Performed By: #### H EMOGC ####[facility] (DEFAULT)[address] [facility] [address] Platelets (Bld) [#/Vol] 198 10*3/uL Normal 150-393 [facility] Comment on above: Performed By: #### H EMOGC ####[facility] (DEFAULT)[address] [place] [address] RBC (Bld) [#/Vol] 4.30 10*6/uL Normal 3.91-5.04 [facility] Comment on above: Performed By: #### H EMOGC ####[facility] (DEFAULT)[address] [facility] [address] RBC Distribution 13.9 % Normal 10.8-14.9 [facility] Comment on above: Performed By: #### H EMOGC ####[facility] (DEFAULT)[address] [facility] [address] WBC (Bld) [#/Vol] 10.61 10*3/uL Normal 3.99-11.19 [facility] Comment on above: Performed By: #### H EMOGC ####[facility] (DEFAULT)[address] [place] [address] CHEM 7 (LYTES,BUN,CREA,GLUC) on 08-05-2024 Anion gap [Moles/Vol] 14 mmol/L Normal 7-17 [facility] Comment on above: Performed By: #### S URGP #### [facility] (DEFAULT) [address] [place] [address] Chloride [Moles/Vol] 107 mmol/L Normal 98-108 [facility] Comment on above: Performed By: #### S URGP #### [facility] (DEFAULT) [address] [place] [address] CO2 [Moles/Vol] 27 mmol/L Normal 21-31 [facility] Comment on above: Performed By: #### S URGP #### [facility] (DEFAULT) [address] [place] [address] Creatinine [Mass/Vol] 1.19 mg/dL Normal 0.50-1.20 [facility] Comment on above: Performed By: #### S URGP #### [facility] (DEFAULT) [address] [place] [address] GFR/1.73 sq M.predicted among non-blacks MDRD (S/P/Bld) [Vol rate/Area] 47 mL/min/{1.73_m2} Low >=60 [facility] Comment on above: Result Comment: Repo rted eGFR is based on the CKD-EPI 2020 equation using creatinine, age, and sex. Performed By: #### S URGP #### [facility] (DEFAULT) [address] [place] [address] Glucose [Mass/Vol] 88 mg/dL Normal Nonfastin -179 mg/dL; Fastin-99 [facility] Comment on above: Performed By: #### S URGP #### [facility] (DEFAULT) [address] [place] [address] Osmolality [Osmolality] 307 mosm/kg High 278-305 [facility] Comment on above: Performed By: #### S URGP #### [facility] (DEFAULT) [address] [place] [address] Potassium [Moles/Vol] 3.9 mmol/L Normal 3.5-5.0 [facility] Comment on above: Performed By: #### S URGP #### [facility] (DEFAULT) [address] [place] [address] Sodium [Moles/Vol] 144 mmol/L Normal 135-145 [facility] Comment on above: Performed By: #### S URGP #### [facility] (DEFAULT) [address] [place] [address] Urea nitrogen [Mass/Vol] 34 mg/dL High 7-25 [facility] Comment on above: Performed By: #### S URGP #### [facility] (DEFAULT) [address] [place] [address] Urea nitrogen/Creatinine [Mass ratio] 29 mg/mg Normal [facility] Comment on above: Performed By: #### S URGP #### [facility] (DEFAULT) [address] [place] [address] Anion gap [Moles/Vol] 14 mmol/L 7 - 17 mmol/L [facility] Chloride [Moles/Vol] 108 mmol/L 98 - 10 8 mmol/L [facility] CO2 [Moles/Vol] 25 mmol/L 21 - 31 mmol/L [facility] Creatinine [Mass/Vol] 1.45 mg/dL High 0.50 - 1.20 mg/dL [facility] eGFR, CKD-EPI, Female 37 Low - PINF [facility] Glucose [Mass/Vol] 242 mg/dL High 70 - 179 mg/dL [facility] Interpretation and review of laboratory results Abnormal [facility] Osmolality Calc [Osmolality] 315 High [facility] Potassium [Moles/Vol] 3.8 mmol/L 3.5 - 5.0 mmol/L [facility] Sodium [Moles/Vol] 143 mmol/L 135 - 145 mmol/L [facility] Urea nitrogen [Mass/Vol] 35 mg/dL High 7 - 25 mg/dL [facility] Urea nitrogen/Creatinine [Mass ratio] 24 mg/mg [facility] Anion gap [Moles/Vol] 14 mmol/L Normal 7-17 [facility] Comment on above: Performed By: #### X M #### [facility] (DEFAULT) [address] [address] Chloride [Moles/Vol] 108 mmol/L Normal 98-108 [facility] Comment on above: Performed By: #### X M #### [facility] (DEFAULT) [address] [address] CO2 [Moles/Vol] 25 mmol/L Normal 21-31 [facility] Comment on above: Performed By: #### X M #### [facility] (DEFAULT) [address] [address] Creatinine [Mass/Vol] 1.45 mg/dL High 0.50-1.20 [facility] Comment on above: Performed By: #### X M #### [facility] (DEFAULT) [address] [address] GFR/1.73 sq M.predicted among non-blacks MDRD (S/P/Bld) [Vol rate/Area] 37 mL/min/{1.73_m2} Low >=60 [facility] Comment on above: Result Comment: Repo rted eGFR is based on the CKD-EPI 2020 equation using creatinine, age, and sex. Performed By: #### X M #### [facility] (DEFAULT) [address] [address] Glucose [Mass/Vol] 242 mg/dL High Nonfastin -179 mg/dL; Fastin-99 [facility] Comment on above: Performed By: #### X M #### [facility] (DEFAULT) [address] [place] [address] Osmolality [Osmolality] 315 mosm/kg High 278-305 [facility] Comment on above: Performed By: #### X M #### [facility] (DEFAULT) [address] [place] [address] Potassium [Moles/Vol] 3.8 mmol/L Normal 3.5-5.0 [facility] Comment on above: Performed By: #### X M #### [facility] (DEFAULT) [address] [place] [address] Sodium [Moles/Vol] 143 mmol/L Normal 135-145 [facility] Comment on above: Performed By: #### X M #### [facility] (DEFAULT) [address] [place] [address] Urea nitrogen [Mass/Vol] 35 mg/dL High 7-25 [facility] Comment on above: Performed By: #### X M #### [facility] (DEFAULT) [address] [place] [address] Urea nitrogen/Creatinine [Mass ratio] 24 mg/mg Normal [facility] Comment on above: Performed By: #### X M #### [facility] (DEFAULT) [address] [place] [address] Cardiac echo study Procedure Ordered By: Ezequiel Figueroa on 08-05-2024 Ao ASC index 1.56 cm/m2 [facility] Work Phone: [phone] Ao peak fidel 1.23 m/s [facility] Work Phone: [phone] Ao SOV index 1.56 cm/m2 [facility] Work Phone: [phone] Ao STJ index 1.36 cm/m2 [facility] Work Phone: [phone] Ao VTI 24.81 cm [facility] Work Phone: [phone] Ascending aorta 2.97 cm [facility] Work Phone: [phone] 77 AV LVOT peak gradient 4 mmHg [facility] Work Phone: [phone] AV mean gradient 4 mmHg [facility] Work Phone: [phone] AV peak gradient 6 mmHG [facility] Work Phone: [phone] AV valve area 2.72 cm2 [facility] Work Phone: [phone] AV Velocity Ratio 0.8 [facility] Work Phone: [phone] MARKUS (continuity Vmax) 2.55 cm2 [facility] Work Phone: [phone] MARKUS (continuity VTI) 2.72 cm2 [facility] Work Phone: [phone] MARKUS index (continuity Vmax) 1.34 m/s [facility] Work Phone: [phone] MARKUS index (continuity VTI) 1.43 cm2/m2 [facility] Work Phone: [phone] Avg e' pk fidel 0.09 m/s [facility] Work Phone: [phone] Body surface area Derived from formula 1.9 m2 [facility] Work Phone: [phone] BP EF 55 % [facility] Work Phone: [phone] DI (Vmax) 0.8 [facility] Work Phone: [phone] DI (VTI) 0.86 m/2 [facility] Work Phone: [phone] e' lateral pk fidel 0.0845 [facility]s [facility]: [phone] e' lateral pk fidel 0.08 m/s [facility] Work Phone: [phone] e' septal pk fidel 0.0953 m/s [facility] Work Phone: [phone] e' septal pk fidel 0.1 m/s [facility] Work Phone: [phone] [facility]: [phone] EF SP 4CH 51 [facility]: [phone] EST RAP 3 mmHg [facility] Work [facility]: [phone] EST RVSP 29 mmHg [facility] Work Phone: [phone] FS 31 % [facility] Work Phone: [phone] IVC ostium 1.64 cm [facility] Work Phone: [phone] IVS 1.14 cm [facility] Work Phone: [phone] LA area 4CH 29.07 cm2 [facility] Work Phone: [phone] LA ESV BP (MOD) 86 [facility] Phone: [phone] LA ESV BP (MOD) index 45 mL/[facility]2 [facility] Work Phone: [phone] LA ESV SP 2CH (MOD) 81 mL [facility] Work Phone: [phone] LA ESV SP 4CH (MOD) 93 mL [facility] Work Phone: [phone] LV EDV BP 88 mL [facility] Work Phone: [phone] LV EDV SP 2CH 85 [facility] Work [facility]: [phone] LV EDV SP 4CH 86 [facility] Work Phone: [phone] LV ESV BP 40 mL [facility] Work Phone: [phone] LV ESV SP 2CH 37 [facility] Work [facility]: [phone] LV ESV SP 4CH 42 [facility] Work Phone: [phone] LV mass 146.48 g [facility] Work Phone: [phone] LV Mass Index 77.1 g/m2 [facility] Work Phone: [phone] LV RWT 0.56 [facility] Work Phone: [phone] LV stroke volume BP (ml) 48 [facility] Work [facility]: [phone] LV stroke volume index BP 25.26 mL/m2 [facility] Work Phone: [phone] LVIDD 3.93 [facility] Work Phone: [phone] LVIDS 2.7 cm [facility] Work Phone: [phone] LVOT area 3.17 cm2 [facility] Work Phone: [phone] LVOT diameter 2.01 cm [facility] Work Phone: [phone] LVOT peak fidel 0.99 m/s [facility] Work Phone: [phone] LVOT peak VTI 21.3 cm [facility] Work Phone: [phone] LVOT stroke volume 68 cm3 [facility] Work Phone: [phone] LVOT stroke volume index 35.55 ml/m2 [facility] Work Phone: [phone] MV mean gradient 3 mmHg [facility] Work Phone: [phone] MV peak gradient 6 mmHg [facility] Work Phone: [phone] MV valve area by continuity eq 2.61 cm2 [facility] Work Phone: [phone] MV VTI 25.92 cm [facility] Work Phone: [phone] MVA (continuity VTI) 2.6 cm [facility] Work Phone: [phone] OSU AV VTI RATIO PRE STRESS 0.86 [facility] Work Phone: OSU ECHO LV BIPLANE SYSTOLIC VOLUME INDEX 21.05 mL/m2 [facility] Work Phone: OSU ECHO LV BP DIASTOLIC VOLUME INDEX 46.32 mL/m2 [facility] Work Phone: PV mean gradient 3 mmHg [facility]: PV peak gradient 6 [facility] Work Phone: PV PK FIDLE 1.23 m[facility] Work [facility]: PW 1.11 [facility] Work Phone: RA area 4CH (MOD) 22.74 cm2 [facility]: RA vol index 4CH (MOD) 36.32 mL/m2 [facility] Work Phone: Right atrium volume 4 chamber method of disks 69 mL [facility] Work Phone: RV Area diastolic 17.5 cm2 [facility] Work Phone: RV Area systolic 11.9 cm2 [facility] Work Phone: RV basal diam 4.56 cm [facility] Work Phone: RV Fractional area change 32 % [facility] Work [facility]: RV long diam 6.91 [facility] Work Phone: RV mid diam 2.91 cm [facility] Work Phone: RV S' 12.81 cm/s [facility] Work Phone: RVOT peak gradient 5 mmHg [facility] Work Phone: RVOT peak fidel 1.07 m/s [facility] Work Phone: [phone] RVOT peak VTI 20.1 cm [facility] Work Phone: [phone] Sinus 2.97 cm [facility] Work Phone: [phone] STJ 2.58 cm [facility] Work Phone: [phone] Stroke Volume 68 cm/mL [facility] Work Phone: [phone] Stroke volume index 36 [facility] Work Phone: [phone] TAPSE 2.08 cm [facility] Work Phone: [phone] TR pk grad 26 mmHg [facility] Work Phone: [phone] TR pk fidel 2.53 m/s [facility] Work Phone: [phone] [facility] Work Phone: Cardiac echo study Procedure [facility]05[facility]20[facility] ([facility]ative[facility] ECHOCARDIOGRAMon 08-05-2024 Echocardiography ? No [...] from the original result were not included. [facility] Facility [facility] Patient Information Patient Name Lindsay Acuna [...] Role Read Date Ezequiel Figueroa DO Echo [place] 08/05/2024 Left Heart Measurements LV - Systole [...] long di (more content not included)... Normal [facility] GLUCOSE POCon 08-05-2024 Glucose [Mass/Vol] 228 mg/dL High 70 - 179 mg/dL [facility] Interpretation and review of laboratory results Abnormal [facility] POC Sample Type CAPBL [facility] IONIZED CALCIUM, WHOLE BLOOD on 08-05-2024 ICA 4.72 mg/dL Normal 4.60-5.30 [facility] Comment on above: Performed By: #### S URGP #### [facility] (DEFAULT) [address] [place] [address] ICA 4.69 mg/dL Normal 4.60-5.30 [facility] Comment on above: Performed By: #### S URGP #### [facility] (DEFAULT) [address] [place] [address] IONIZED CALCIUM, WHOLE BLOOD Ordered By: Jairo Layton on 08-05-2024 Calcium.ionized (Bld) [Moles/Vol] 4.69 mg/dL 4.60 - 5.30 mg/dL [facility] Interpretation and review of laboratory results Normal [facility] MAGNESIUMon 08-05-2024 Magnesium [Mass/Vol] 2.4 mg/dL Normal 1.6-2.6 [facility] Comment on above: Performed By: #### S URGP #### [facility] (DEFAULT) [address] [place] [address] Magnesium [Mass/Vol] 1.8 mg/dL 1.6 - 2 .6 mg/dL [facility] Magnesium [Mass/Vol] 1.8 mg/dL Normal 1.6-2.6 [facility] Comment on above: Performed By: #### X M #### [facility] (DEFAULT) [address] [place] [address] No Panel Informationon 08-05 Interpretation and review of laboratory results Normal [facility] PHOSPHATE, INORGANICon 08-05 Phosphorous 3.2 mg/dL Normal 2.2-4.6 [facility] Comment on above: Performed By: #### S URGP #### [facility] (DEFAULT) [address] [place] [address]27 Phosphate [Mass/Vol] 2.7 mg/dL 2.2 - 4 .6 mg/dL [facility] Phosphorous 2.7 mg/dL Normal 2.2-4.6 [facility] Comment on above: Performed By: #### X M #### [facility] (DEFAULT) [address] [place] [address] VON WILLEBRAND FACTOR AGOrde red By: Madhavi Mcelroy on 08-05-2024 Interpretation and review of laboratory results Abnormal [facility] vWf Ag actual/normal IA (PPP) [Relative mass conc] 230 % High 50 - 180 % [facility] CBC,PLATELETSon 08-04-2024 Erythrocyte distribution width (RBC) [Ratio] 13.7 % 10.8 - 14.9 % [facility] Hematocrit (Bld) [Volume fraction] 40.8 % 34.9 - 44.3 % [facility] Hemoglobin (Bld) [Mass/Vol] 12.7 g/dL 11.4 - 15.2 g/dL [facility] Interpretation and review of laboratory results Abnormal [facility] MCH (RBC) [Entitic mass] 28.7 pg 25.9 - 33.9 pg [facility] MCHC (RBC) [Mass/Vol] 31.1 g/dL Low 31.4 - 35.9 g/dL [facility] MCV (RBC) [Entitic vol] 92.1 fL 79.6 - 97.7 fL [facility] Platelet mean volume (Bld) [Entitic vol] 10.8 fL 8.5 - 12.2 fL [facility] Platelets (Bld) [#/Vol] 228 10*3/uL 150 - 393 K/uL [facility] RBC (Bld) [#/Vol] 4.43 10*6/uL [facility] WBC (Bld) [#/Vol] 11.41 10*3/uL High 3.99 - 11.19 K/uL [facility] Hematocrit (Bld) [Volume fraction] 40.8 % Normal 34.9-44.3 [facility] Comment on above: Performed By: #### [facility] #### [facility] (DEFAULT) [address] [place] [address] Hemoglobin (Bld) [Mass/Vol] 12.7 g/dL Normal 11.4-15.2 [facility] Comment on above: Performed By: #### [facility] #### [facility] (DEFAULT) [address] [place] [address] 32285 MCV (RBC) [Entitic vol] 92.1 fL Normal 79.6-97.7 O [facility] Comment on above: Performed By: #### H EMOGC #### [facility] (DEFAULT) [address] [place] [address] 15954 Mean Cell Hgb 28.7 pg Normal 25.9-33.9 [facility] Comment on above: Performed By: #### H EMOGC #### U [facility] (DEFAULT) [address] [place] [address] 25762 Mean Cell Hgb Conc 31.1 g/dL Low 31.4-35.9 [facility] Comment on above: Performed By: #### H EMOGC #### [facility] (DEFAULT) [address] [place] [address] Platelet mean volume (Bld) [Entitic vol] 10.8 fL Normal 8.5-12.2 [facility] Comment on above: Performed By: #### H EMOGC #### [facility] (DEFAULT) [address] [place] [address]16 Platelets (Bld) [#/Vol] 228 10*3/uL Normal 150-393 [facility] Comment on above: Performed By: #### H EMOGC #### [facility] (DEFAULT) [address] [place] [address] 94283 RBC (Bld) [#/Vol] 4.43 10*6/uL Normal 3.91-5.04 [facility] Comment on above: Performed By: #### H EMOGC #### [facility] (DEFAULT) [address] [place] [address] 75027 RBC Distribution 13.7 % Normal 10.8-14.9 [facility] Comment on above: Performed By: #### H EMOGC #### [facility] (DEFAULT) [address] [place] [address] 67990 WBC (Bld) [#/Vol] 11.41 10*3/uL High 3.99-11.19 [facility] Comment on above: Performed By: #### H EMO #### [facility] (DEFAULT) [address] [place] [id number] CHEM 7 (LYTES,BUN,CREA,GLUC) Ordered By: Lizette Canseco on 08-04-2024 Anion gap [Moles/Vol] 16 mmol/L 7 - 17 mmol/L [facility] Chloride [Moles/Vol] 109 mmol/L High 98 - 10 8 mmol/L [facility] CO2 [Moles/Vol] 24 mmol/L 21 - 31 mmol/L [facility] Creatinine [Mass/Vol] 1.47 mg/dL High 0.50 - 1.20 mg/dL [facility] eGFR, CKD-EPI, Female 36 Low - PINF [facility] Glucose [Mass/Vol] 181 mg/dL High 70 - 179 mg/dL [facility] Interpretation and review of laboratory results Abnormal [facility] Osmolality Calc [Osmolality] 312 High [facility] Potassium [Moles/Vol] 4 mmol/L 3.5 - 5.0 mmol/L [facility] Sodium [Moles/Vol] 145 mmol/L 135 - 145 mmol/L [facility] Urea nitrogen [Mass/Vol] 26 mg/dL High 7 - 25 mg/dL [facility] Urea nitrogen/Creatinine [Mass ratio] 18 mg/mg [facility] CHEM 7 (LYTES,BUN,CREA,GLUC) on 08-04-2024 Anion gap [Moles/Vol] 16 mmol/L Normal 7-17 [facility] Comment on above: Performed By: #### S URGP #### [facility] (DEFAULT) [address] [place] [address] Chloride [Moles/Vol] 109 mmol/L High 98-108 [facility] Comment on above: Performed By: #### S URGP #### [facility] (DEFAULT) [address] [place] [address] 684[address] CO2 [Moles/Vol] 24 mmol/L Normal 21-31 [facility] Comment on above: Performed By: #### S URGP #### [facility] (DEFAULT) [address] [place] [address]1574 Creatinine [Mass/Vol] 1.47 mg/dL High 0.50-1.20 [facility] Comment on above: Performed By: #### S URGP #### [facility] (DEFAULT) [address] [place] [address] 25548 GFR/1.73 sq M.predicted among non-blacks MDRD (S/P/Bld) [Vol rate/Area] 36 mL/min/{1.73_m2} Low >=60 [facility] Comment on above: Result Comment: Repo rted eGFR is based on the CKD-EPI 2020 equation using creatinine, age, and sex. Performed By: #### S URGP #### [facility] (DEFAULT) [address] [place] [address] 33064 Glucose [Mass/Vol] 181 mg/dL High Nonfastin -179 mg/dL; Fastin-99 [facility] Comment on above: Performed By: #### S URGP #### [facility] (DEFAULT) [address] [place] [address]804 Osmolality [Osmolality] 312 mosm/kg High 278-305 [facility] Comment on above: Performed By: #### S URGP #### [facility] (DEFAULT) [address] [place] [address] 69514 Potassium [Moles/Vol] 4.0 mmol/L Normal 3.5-5.0 [facility] Comment on above: Performed By: #### S URGP #### [facility] (DEFAULT) [address] [place] [address] 48577 Sodium [Moles/Vol] 145 mmol/L Normal 135-145 [facility] Comment on above: Performed By: #### S URGP #### [facility] (DEFAULT) [address] [place] [address] Urea nitrogen [Mass/Vol] 26 mg/dL High 7-25 [facility] Comment on above: Performed By: #### S URGP #### [facility] (DEFAULT) [address] [place] [address] Urea nitrogen/Creatinine [Mass ratio] 18 mg/mg Normal [facility] Comment on above: Performed By: #### S URGP #### U [facility] (DEFAULT) [address] [place] [address] CT HEAD WITHOUT CONTRASTon 0 08-04-2024 CT [...] sinuses are clear. IMPRESSION: Stable exam. Normal [facility] CT Head WO contraston 2024 RADIOLOGY RADIOLOGY [facility] CT Head WO contrastOrdered B y: Chirag Mendenhall on 08-04-2024 [facility] Work Phone: GLUCOSE POCon 08-04-2024 Glucose [Mass/Vol] 227 mg/dL High 70 - 179 mg/dL [facility] Interpretation and review of laboratory results Abnormal [facility] Glucose [Mass/Vol] 235 mg/dL High 70 - 179 mg/dL [facility] Interpretation and review of laboratory results Abnormal [facility] POC Sample Type [facility] Glucose [Mass/Vol] 215 mg/dL High 70 - 179 mg/dL [facility] Interpretation and review of laboratory results Abnormal [facility] POC Sample Type [facility]BL [facility] Glucose [Mass/Vol] 178 mg/dL 70 - 179 mg/[facility] Glucose [Mass/Vol] 157 mg/dL 70 - 179 mg/dL [facility] Glucose [Mass/Vol] 271 mg/dL High 70 - 179 mg/dL [facility] Glucose [Mass/Vol] 267 mg/dL High 70 - 179 mg/dL [facility] Glucose [Mass/Vol] 246 mg/dL High 70 - 179 mg/dL [facility] IONIZED CALCIUM, WHOLE BLOOD Ordered By: Laura Rodriguez on 08-04-2024 Calcium.ionized (Bld) [Moles/Vol] 4.8 mg/dL 4.60 - 5.30 mg/dL [facility] Interpretation and review of laboratory results Normal [facility] IONIZED CALCIUM, WHOLE BLOOD on 08-04-2024 ICA 4.80 mg/dL Normal 4.60-5.30 [facility] Comment on above: Performed By: #### T YPEC #### [facility] (DEFAULT) [address] [place] [address] MAGNESIUMon 08-04-2024 Magnesium [Mass/Vol] 1.9 mg/dL 1.6 - 2 .6 mg/dL [facility] Magnesium [Mass/Vol] 1.9 mg/dL Normal 1.6-2.6 [facility] Comment on above: Performed By: #### X M #### [facility] (DEFAULT) [address] [place] [address] No Panel Informationon 08-04 POC Sample Type CAPBL [facility] Interpretation and review of laboratory results Abnormal [facility] Interpretation and review of laboratory results Normal [facility] PHOSPHATE, INORGANICon 08-04 Phosphate [Mass/Vol] 2.8 mg/dL 2.2 - 4 .6 mg/dL [facility] Phosphorous 2.8 mg/dL Normal 2.2-4.6 [facility] Comment on above: Performed By: #### X M #### [facility] (DEFAULT) [address] [address] SODIUMon 08-04-2024 Interpretation and review of laboratory results Normal [facility] Sodium [Moles/Vol] 142 mmol/L 135 - 145 mmol/L [facility] Sodium [Moles/Vol] 142 mmol/L Normal 135-145 [facility] Comment on above: Order Comment: While on 3% Hypertonic Saline. Performed By: #### S URGP #### [facility] (DEFAULT) [address] [place] [address] Interpretation and review of laboratory results Normal [facility] Sodium [Moles/Vol] 141 mmol/L 135 - 145 mmol/L [facility] Sodium [Moles/Vol] 141 mmol/L Normal 135-145 [facility] Comment on above: Order Comment: 2 [...] bottle. Performed By: #### B LDCULT #### [facility] (DEFAULT) [address] [place] [address] Interpretation and review of laboratory results Normal [facility] Sodium [Moles/Vol] 143 mmol/L 135 - 145 mmol/L [facility] Sodium [Moles/Vol] 143 mmol/L Normal 135-145 [facility] Comment on above: Order Comment: While on 3% Hypertonic Saline. Performed By: #### [facility] #### [facility] (DEFAULT) [address] [place] [address]483 ABORH TYPE RECONFIRMATIONon 08-03-2024 ABO/RH(D) TYPE Negative [facility] ABO/RH(D) TYPE Negative Normal [facility] Comment on above: Performed By: #### T YPEC #### [facility] (DEFAULT) [address] [place] [address] 7[address]70 CBC,PLATELETSon 08-03-2024 Erythrocyte distribution width (RBC) [Ratio] 13.2 % 10.8 - 14.9 % [facility] Hematocrit (Bld) [Volume fraction] 42.8 % 34.9 - 44.3 % [facility] Hemoglobin (Bld) [Mass/Vol] 13.5 g/dL 11.4 - 15.2 g/dL [facility] Interpretation and review of laboratory results Normal [facility] MCH (RBC) [Entitic mass] 29.2 pg 25.9 - 33.9 pg [facility] MCHC (RBC) [Mass/Vol] 31.5 g/dL 31.4 - 35.9 g/dL [facility] MCV (RBC) [Entitic vol] 92.4 fL 79.6 - 97.7 fL [facility] Platelet mean volume (Bld) [Entitic vol] 11.2 fL 8.5 - 12.2 fL [facility] Platelets (Bld) [#/Vol] 227 10*3/uL 150 - 393 K/uL [facility] RBC (Bld) [#/Vol] 4.63 10*6/uL [facility] WBC (Bld) [#/Vol] 8.43 10*3/uL 3.99 - 11.19 K/uL [facility] Hematocrit (Bld) [Volume fraction] 42.8 % Normal 34.9-44.3 [facility] Comment on above: Performed By: #### X M #### [facility] (DEFAULT) [address] [place] [address]657 Hemoglobin (Bld) [Mass/Vol] 13.5 g/dL Normal 11.4-15.2 [facility] Comment on above: Performed By: #### X M #### [facility] (DEFAULT) [address] [place] [address] 70784 MCV (RBC) [Entitic vol] 92.4 fL Normal 79.6-97.7 O [facility] Comment on above: Performed By: #### X M #### [facility] (DEFAULT) [address] [place] [address] 30756 Mean Cell Hgb 29.2 pg Normal 25.9-33.9 [facility] Comment on above: Performed By: #### X M #### [facility] (DEFAULT) [address] [place] [address] 70568 Mean Cell Hgb Conc 31.5 g/dL Normal 31.4-35.9 [facility] Comment on above: Performed By: #### X M #### [facility] (DEFAULT) [address] [place] [address] 95652 Platelet mean volume (Bld) [Entitic vol] 11.2 fL Normal 8.5-12.2 [facility] Comment on above: Performed By: #### X M #### [facility] (DEFAULT) [address] [place] [address] 35012 Platelets (Bld) [#/Vol] 227 10*3/uL Normal 150-393 [facility] Comment on above: Performed By: #### X M #### [facility] (DEFAULT) [address] [place] [address] 59908 RBC (Bld) [#/Vol] 4.63 10*6/uL Normal 3.91-5.04 [facility] Comment on above: Performed By: #### X M #### [facility] (DEFAULT) [address] [place] [address] 96003 RBC Distribution 13.2 % Normal 10.8-14.9 [facility] Comment on above: Performed By: #### X M #### [facility] (DEFAULT) [address] [place] [address] 71791 WBC (Bld) [#/Vol] 8.43 10*3/uL Normal 3.99-11.19 [facility] Comment on above: Performed By: #### X M #### [facility] (DEFAULT) [address] [place] [address]379 CHEM 7 (LYTES,BUN,CREA,GLUC) on 08-03-2024 Anion gap [Moles/Vol] 16 mmol/L 7 - 17 mmol/L [facility] Chloride [Moles/Vol] 103 mmol/L 98 - 10 8 mmol/L [facility] CO2 [Moles/Vol] 23 mmol/L 21 - 31 mmol/L [facility] Creatinine [Mass/Vol] 1.35 mg/dL High 0.50 - 1.20 mg/dL [facility] eGFR, CKD-EPI, Female 40 Low - PINF [facility] Glucose [Mass/Vol] 151 mg/dL 70 - 179 mg/dL [facility] Interpretation and review of laboratory results Abnormal [facility] Osmolality Calc [Osmolality] 295 [facility] Potassium [Moles/Vol] 4.3 mmol/L 3.5 - 5.0 mmol/L [facility] [facility] S[facility] [Moles/Vol] 138 mmol/L 135 - 145 mmol/L [facility] Urea nitrogen [Mass/Vol] 18 mg/dL 7 - 25 mg/dL [facility] Urea nitrogen/Creatinine [Mass ratio] 13 mg/mg [facility] Anion gap [Moles/Vol] 16 mmol/L Normal 7-17 [facility] Comment on above: Performed By: #### S URGP #### [facility] (DEFAULT) [address] [place] [address]16 Chloride [Moles/Vol] 103 mmol/L Normal 98-108 [facility] Comment on above: Performed By: #### S URGP #### [facility] (DEFAULT) [address] [place] [address] 41147 CO2 [Moles/Vol] 23 mmol/L Normal 21-31 [facility] Comment on above: Performed By: #### S URGP #### [facility] (DEFAULT) [address] [place] [address] 89968 Creatinine [Mass/Vol] 1.35 mg/dL High 0.50-1.20 [facility] Comment on above: Performed By: #### S URGP #### [facility] (DEFAULT) [address] [place] [address] 89314 GFR/1.73 sq M.predicted among non-blacks MDRD (S/P/Bld) [Vol rate/Area] 40 mL/min/{1.73_m2} Low >=60 [facility] Comment on above: Result Comment: Repo rted eGFR is based on the CKD-EPI 2020 equation using creatinine, age, and sex. Performed By: #### S URGP #### [facility] (DEFAULT) [address] [place] [address] 03833 Glucose [Mass/Vol] 151 mg/dL Normal Nonfastin -179 mg/dL; Fastin-99 [facility] Comment on above: Performed By: #### S URGP #### [facility] (DEFAULT) [address] [place] [address] 86326 Osmolality [Osmolality] 295 mosm/kg Normal 278-305 [facility] Comment on above: Performed By: #### S URGP #### [facility] (DEFAULT) [address] [place] [address] 07836 Potassium [Moles/Vol] 4.3 mmol/L Normal 3.5-5.0 [facility] Comment on above: Result Comment: Spec imen slightly hemolyzed. Potassium results may be falsey elevated by more than 0.5 mmol/L. Consider recollection. Performed By: #### S URGP #### [facility] (DEFAULT) [address] [place] [address] 93437 Sodium [Moles/Vol] 138 mmol/L Normal 135-145 [facility] Comment on above: Performed By: #### S URGP #### [facility] (DEFAULT) [address] [place] [address] 71082 Urea nitrogen [Mass/Vol] 18 mg/dL Normal 7-25 [facility] Comment on above: Performed By: #### S URGP #### [facility] (DEFAULT) [address] [place] [address] 62134 Urea nitrogen/Creatinine [Mass ratio] 13 mg/mg Normal [facility] Comment on above: Performed By: #### S URGP #### [facility] (DEFAULT) [address] [place] [address] CHEST WITH CONTRAST VASCU LAR TRAUMAon [...] have reviewed and approved this report. Normal [facility] CT Cervical spine WO contras ton 08-03-2024 RADIOLOGY RADIOLOGY [facility] CT Cervical spine WO contras tOrdered By: Alissa Chun on 08-03-2024 [facility] Work Phone: CT Chest W contrast Seth RADIOLOGY RADIOLOGY [facility] CT Chest W contrast IVOrdere d By: Kayla Newell on 08-03-2024 [facility] Work Phone: CT HEAD WITHOUT CONTRASTon [...] since the MRI from earlier today Normal [facility] CT Head WO contraston 2024 Radiology Study observation (narrative) U [facility] RADIOLOGY RADIOLOGY [facility] Radiology Study observation (narrative) [facility] CT ORBITS WITHOUT CONTRASTon 08-03-2024 [...] basal ganglia hyperdensity concerning for hemorrhage. Normal [facility] CT Orbit WO contraston 08-03 RADIOLOGY RADIOLOGY [facility] CT SPINE CERVICAL WITHOUT CO [...] No evidence of acute fractures identified Normal [facility] EXTRA MICROon 08-03-2024 [facility] GLUCOSE POCon 08-03-2024 Glucose [Mass/Vol] 161 mg/dL 70 - 179 mg/dL [facility] POC Sample Type CAPBL [facility] IONIZED CALCIUM, WHOLE BLOOD Ordered By: Alejandra Ness on 08-03-2024 Calcium.ionized (Bld) [Moles/Vol] 4.24 mg/dL Low 4.60 - 5.30 mg/dL [facility] Interpretation and review of laboratory results Abnormal [facility] IONIZED CALCIUM, WHOLE BLOOD on 08-03-2024 ICA 4.24 mg/dL Low 4.60-5.30 [facility] Comment on above: Performed By: #### [facility] #### [facility] (DEFAULT) [address] [place] [address] MAGNESIUMon 08-03-2024 Magnesium [Mass/Vol] 2.1 mg/dL 1.6 - 2 .6 mg/dL [facility] Magnesium [Mass/Vol] 2.1 mg/dL Normal 1.6-2.6 [facility] Comment on above: Performed By: #### S URGP #### [facility] (DEFAULT) [address] [place] [address] MR Brain WO contraston 08-03 RADIOLOGY RADIOLOGY [facility] Radiology Study observation (narrative) [facility] MR Cervical spine WO contras ton 08-03-2024 RADIOLOGY RADIOLOGY [facility] Radiology Study observation (narrative) [facility] MR Cervical spine WO contras tOrdered By: Kuldeep Tavares on 08-03-2024 [facility] Work Phone: MRI BRAIN WITHOUT CONTRASTon [...] tiny 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 Normal [facility] MRI SPINE CERVICAL WITHOUT C ONTRASTon [...] have reviewed and approved this report. Normal [facility] NT-PRO B-TYPE NATRIURETIC PE PTIDEon 08-03-2024 Interpretation and review of laboratory results Abnormal [facility] Natriuretic peptide.B prohormone N-Terminal IA [Mass/Vol] 1115 pg/mL High NINF - 540 pg/mL [facility] No Panel Informationon 08-03 RADIOLOGY RADIOLOGY [facility] Interpretation and review of laboratory results Normal [facility] No Panel InformationOrdered By: Richard Sánchez on 08-03-2024 [facility] Work Phone: PHOSPHATE, INORGANICon 08-03 Phosphate [Mass/Vol] 3.5 mg/dL 2.2 - 4 .6 mg/dL [facility] Phosphorous 3.5 mg/dL Normal 2.2-4.6 [facility] Comment on above: Performed By: #### S URGP #### [facility] (DEFAULT) [address] [place] [address] SCREEN: MRSA/MSSAOrdered By: Gail Collado on 08-03-2024 Interpretation and review of laboratory results Normal [facility] Methicillin Resistant S. Aureus By Pcr Negative Negative [facility] Staphylococcus Aureus By Pcr Negative Negative [facility] SODIUMon 08-03-2024 Interpretation and review of laboratory results Normal [facility] Sodium [Moles/Vol] 139 mmol/L 135 - 145 mmol/L [facility] Sodium [Moles/Vol] 139 mmol/L Normal 135-145 [facility] Comment on above: Order Comment: While on 3% Hypertonic Saline. Performed By: #### N AO ####[facility] (DEFAULT)[address] [place] [address] Interpretation and review of laboratory results Abnormal [facility] Sodium [Moles/Vol] 134 mmol/L Low 135 - 145 mmol/L [facility] Sodium [Moles/Vol] 134 mmol/L Low 135-145 [facility] Comment on above: Order Comment: While on 3% Hypertonic Saline. Performed By: #### H EMOGC #### [facility] (DEFAULT) [address] [place], [place] [id number] XR ABDOMEN 1 VIEW PORTABLEon 08-03-2024 XR [...] proximal second portion of the duodenum. Normal [facility] XR Abdomen Single viewon RADIOLOGY RADIOLOGY [facility] Radiology Study observation (narrative) [facility] XR Abdomen Single viewOrdere d By: Huey Gibson on 08-03-2024 U [facility] XR ELBOW RIGHT 2 VIEWSon XR ELBOW RIGHT 2 VIEWS EXAM: XR ELBOW RI GHT 2 VIEWS, XR HUMERUS RIGHT 2+ VIEWS, XR WRIST RIGHT 3+ VIEWS, 08/02/2024 23:24 PM (accession [id number]), 08/02/2024 23:24 PM (accession [id number]), 08/02/2024 23:23 PM (accession [id number]) COMPARISON: No prior studies available for comparison. [...] dislocation. IMPRESSION: No acute osseous abnormality. Normal [facility] XR HUMERUS RIGHT 2+ VIEWSon 08-03-2024 XR HUMERUS RIGHT 2+ VIEWS EXAM: XR ELBOW RIGHT 2 VIEWS, XR HUMERUS RIGHT 2+ VIEWS, XR WRIST RIGHT 3+ VIEWS, 08/02/2024 23:24 PM (accession [id number]), 08/02/2024 23:24 PM (accession [id number]), 08/02/2024 23:23 PM (accession [id number]) COMPARISON: No prior studies available for comparison. [...] dislocation. IMPRESSION: No acute osseous abnormality. Normal [facility] XR WRIST RIGHT 3+ VIEWSon XR WRIST RIGHT 3+ VIEWS EXAM: XR ELBOW R IGHT 2 VIEWS, XR HUMERUS RIGHT 2+ VIEWS, XR WRIST RIGHT 3+ VIEWS, 08/02/2024 23:24 PM (accession [id number]), 08/02/2024 23:24 PM (accession [id number]), 08/02/2024 23:23 PM (accession [id number]) COMPARISON: No prior studies available for comparison. [...] dislocation. IMPRESSION: No acute osseous abnormality. Normal [facility] 12 Lead EKGon 08-02-[address] [facility] [address] [place] [address] 12 Lead EKG 08/02/24 1309 MR#: [id number] Acct: [id number] Name: LINDSAY ACUNA Rep #: [id number] : 1945 78 From: Mj Benavides MD [...] ECG Confirmed by MAKAYLA LAWSON, MJ ([id number]), research editor NAIMA BEARDEN ([id number]) on 08/05/2024 6:47:07 AM Referred By: Confirmed By: MJ BENAVIDES MD 08/05/24 0647 Date Mj Benavides MD CC: Dr. Pieter Morgan MD; Dr. Kameron Caruso MD Signed Normal [facility] Absolute lymphocyte countOrd ered By: Pieter Morgan on 08-02-2024 Lymphocytes Auto (Unsp spec) [#/Vol] 1.56 10*3/uL 0.83-4.51 [facility] Absolute neutrophil countOrd ered By: Pieter Morgan on 08-02-2024 Neutrophils (Bld) [#/Vol] 6.2 10*3/uL 2.0-7.7 [facility] Activated partial thrombopla stin time (aPTT) in platelet poor plasma by coagulation aOrdered By: Pieter Morgan on 08-02-2024 aPTT Coag (PPP) [Time] 28.4 s 24.1-36.2 [facility] Anion gap in Serum or Plasma Ordered By: Pieter Morgan on 08-02-2024 Anion gap [Moles/Vol] 12 mmol/L 5-15 [facility] Automated lymphocyte count a s percentage of total leukocytesOrdered By: Pieter Morgan on 08-02-2024 Lymphocytes/100 WBC Auto (Unsp spec) 17.9 % Low [facility] BUN/creatinine ratioOrdered By: Pieter Morgan on 08-02-2024 Urea nitrogen/Creatinine [Mass ratio] 11.6 mg/mg 03-03 [facility] Basic Metabolic Profile (BMP )on 08-02-2024 BUN/CRE 11.6 RATIO Normal 03-03 [facility] Comment on above: Performed By: #### L 300.4310, L501.4021, L300.3900, L500.2500, L100.0100 #### [facility] [address] [place], [address] Calcium [Mass/Vol] 9.0 mg/dL Normal 7.6-11.0 [facility] Comment on above: Performed By: #### L 300.4310, L501.4021, L300.3900, L500.2500, L100.0100 #### [facility] [address] [place], [address] Chloride [Moles/Vol] 98 mmol/L Normal 98-108 [facility] Comment on above: Performed By: #### L 300.4310, L501.4021, L300.3900, L500.2500, L100.0100 #### [facility] [address] [place], [address] CO2 [Moles/Vol] 22.0 mmol/L Normal 21.0-32.0 [facility] Comment on above: Performed By: #### L 300.4310, L501.4021, L300.3900, L500.2500, L100.0100 #### [facility] [address] [place], [address] Creatinine [Mass/Vol] 1.74 mg/dL High 0.70-1.20 [facility] Comment on above: Performed By: #### L 300.4310, L501.4021, L300.3900, L500.2500, L100.0100 #### [facility] [address] [place], [address] ECRCL 27.14 ml/min Low 50-250 [facility] Comment on above: Performed By: #### L 300.4310, L501.4021, L300.3900, L500.2500, L100.0100 #### [facility] [address] [place], [address] GAP 12 Normal 5-15 [facility] Comment on above: Performed By: #### L 300.4310, L501.4021, L300.3900, L500.2500, L100.0100 #### [facility] [address] [place], [address] GFR/1.73 sq M.predicted among non-blacks MDRD (S/P/Bld) [Vol rate/Area] 29 mL/min/{1.73_m2} Low >60 [facility] Comment on above: Result Comment: mL/m in/1.73m2 CKD-EPI Creatinine Equation (2020) Performed By: #### L 300.4310, L501.4021, L300.3900, L500.2500, L100.0100 #### [facility] [address] [place], [address] Glucose [Mass/Vol] 235 mg/dL High 70-99 [facility] Comment on above: Performed By: #### L 300.4310, L501.4021, L300.3900, L500.2500, L100.0100 #### [facility] [address] [place], [address] Potassium [Moles/Vol] 4.2 mmol/L Normal 3.3-5.1 [facility] Comment on above: Performed By: #### L 300.4310, L501.4021, L300.3900, L500.2500, L100.0100 #### [facility] [address] [place], [address] Sodium [Moles/Vol] 132 mmol/L Low 133-145 [facility] Comment on above: Performed By: #### L 300.4310, L501.4021, L300.3900, L500.2500, L100.0100 #### [facility] [address] [place], [address] Urea nitrogen [Mass/Vol] 20 mg/dL High 4-19 [facility] Comment on above: Performed By: #### L 300.4310, L501.4021, L300.3900, L500.2500, L100.0100 #### [facility] [address] [place], [address] Basophil percentageOrdered B y: Pieter Morgan on 08-02-2024 Basophils/100 WBC (Bld) 0.5 % 0-1 [facility] CBC W/Diff, Automatedon 07-14 Absolute Lymph 1.56 X10 3/uL Normal 0.83-4.51 [facility] Comment on above: Performed By: #### L 300.4310, L501.4021, L300.3900, L500.2500, L100.0100 #### [facility] [address] [place], [address] Absolute Neut 6.2 X10 3/uL Normal 2.0-7.7 [facility] Comment on above: Performed By: #### L 300.4310, L501.4021, L300.3900, L500.2500, L100.0100 #### [facility] [address] [place], [address] Basophils/100 WBC (Bld) 0.5 % Normal 0-1 [facility] Comment on above: Performed By: #### L 300.4310, L501.4021, L300.3900, L500.2500, L100.0100 #### [facility] [address] [place], [address] Eosinophils/100 WBC (Bld) 1.0 % Normal 0-5 [facility] Comment on above: Performed By: #### L 300.4310, L501.4021, L300.3900, L500.2500, L100.0100 #### [facility] [address] [place], [address] Erythrocyte distribution width (RBC) [Ratio] 13.3 % Normal 11.6-14.6 [facility] Comment on above: Performed By: #### L 300.4310, L501.4021, L300.3900, L500.2500, L100.0100 #### [facility] [address] [place], [address] Hematocrit (Bld) [Volume fraction] 42.0 % Normal 37-47 [facility] Comment on above: Performed By: #### L 300.4310, L501.4021, L300.3900, L500.2500, L100.0100 #### [facility] [address] [place], [address] Hemoglobin (Bld) [Mass/Vol] 13.8 g/dL Normal 12.0-15.0 [facility] Comment on above: Performed By: #### L 300.4310, L501.4021, L300.3900, L500.2500, L100.0100 #### [facility] [address] [place], [address] IG% 0.300 Normal 0.0-0.9 [facility] Comment on above: Result Comment: IG% - Immature Granulocytes (promyelocytes, myelocytes and metamyelocytes) > 1% indicates that a LEFT SHIFT is Present. Performed By: #### L 300.4310, L501.4021, L300.3900, L500.2500, L100.0100 #### [facility] [address] [place], [address] Lymphocytes/100 WBC (Bld) 17.9 % Low 19-41 [facility] Comment on above: Performed By: #### L 300.4310, L501.4021, L300.3900, L500.2500, L100.0100 #### [facility] [address] [place], [address] MCH (RBC) [Entitic mass] 30.3 pg Normal 27.0-32.0 [facility] Comment on above: Performed By: #### L 300.4310, L501.4021, L300.3900, L500.2500, L100.0100 #### [facility] [address] [place], [address] MCHC (RBC) [Mass/Vol] 32.9 g/dL Normal 32-36 [facility] Comment on above: Performed By: #### L 300.4310, L501.4021, L300.3900, L500.2500, L100.0100 #### [facility] [address] [place], [address] MCV (RBC) [Entitic vol] 92.1 fL Normal 81-99 [facility] Comment on above: Performed By: #### L 300.4310, L501.4021, L300.3900, L500.2500, L100.0100 #### [facility] [address] [place], [address] Monocytes/100 WBC (Bld) 8.9 % Normal 0-10 [facility] Comment on above: Performed By: #### L 300.4310, L501.4021, L300.3900, L500.2500, L100.0100 #### [facility] [address] [place], [address] Neutrophils/100 WBC (Bld) 71.4 % High 47-70 [facility] Comment on above: Performed By: #### L 300.4310, L501.4021, L300.3900, L500.2500, L100.0100 #### [facility] [address] [place], [address] Nucleated RBC (Bld) [#/Vol] 0 10*3/uL Normal 0-5 [facility] Comment on above: Performed By: #### L 300.4310, L501.4021, L300.3900, L500.2500, L100.0100 #### [facility] [address] [place], [address] Platelet mean volume (Bld) [Entitic vol] 10.7 fL Normal 6.2-12.0 [facility] Comment on above: Performed By: #### L 300.4310, L501.4021, L300.3900, L500.2500, L100.0100 #### [facility] [address] [place], [address] Platelets (Bld) [#/Vol] 214 10*3/uL Normal 150-450 [facility] Comment on above: Performed By: #### L 300.4310, L501.4021, L300.3900, L500.2500, L100.0100 #### [facility] [address] [place], [address] RBC (Bld) [#/Vol] 4.56 10*6/uL Normal 4.2-5.4 [facility] Comment on above: Performed By: #### L 300.4310, L501.4021, L300.3900, L500.2500, L100.0100 #### [facility] [address] [place], [address] RDW SD 45.3 fl High 35.1-43.9 [facility] Comment on above: Performed By: #### L 300.4310, L501.4021, L300.3900, L500.2500, L100.0100 #### [facility] [address] [place], [address] WBC (Bld) [#/Vol] 8.7 10*3/uL Normal 4.4-11.0 [facility] Comment on above: Performed By: #### L 300.4310, L501.4021, L300.3900, L500.2500, L100.0100 #### [facility] [address] [facility] [place], [address] CBC,PLATELETSon 08-02-2024 Erythrocyte distribution width (RBC) [Ratio] 13.3 % 10.8 - 14.9 % [facility] Hematocrit (Bld) [Volume fraction] 43.8 % 34.9 - 44.3 % [facility] Hemoglobin (Bld) [Mass/Vol] 14 g/dL 11.4 - 15.2 g/dL [facility] Interpretation and review of laboratory results Normal [facility] MCH (RBC) [Entitic mass] 29.4 pg 25.9 - 33.9 pg [facility] MCHC (RBC) [Mass/Vol] 32 g/dL 31.4 - 35.9 g/dL [facility] MCV (RBC) [Entitic vol] 92 fL 79.6 - 97.7 fL [facility] Platelet mean volume (Bld) [Entitic vol] 10.8 fL 8.5 - 12.2 fL [facility] Platelets (Bld) [#/Vol] 245 10*3/uL 150 - 393 K/uL [facility] RBC (Bld) [#/Vol] 4.76 10*6/uL [facility] WBC (Bld) [#/Vol] 8.16 10*3/uL 3.99 - 11.19 K/uL [facility] Hematocrit (Bld) [Volume fraction] 43.8 % Normal 34.9-44.3 [facility] Comment on above: Performed By: #### B LDCULT #### [facility] (DEFAULT) [address] [place] [address] Hemoglobin (Bld) [Mass/Vol] 14.0 g/dL Normal 11.4-15.2 [facility] Comment on above: Performed By: #### B LDCULT #### [facility] (DEFAULT) [address] [place] [address] MCV (RBC) [Entitic vol] 92.0 fL Normal 79.6-97.7 [facility] Comment on above: Performed By: #### B LDCULT #### [facility] (DEFAULT) [address] [place] [address] Mean Cell Hgb 29.4 pg Normal 25.9-33.9 [facility] Comment on above: Performed By: #### B LDCULT #### [facility] (DEFAULT) [address] [place] [address] 26[address] Mean Cell Hgb Conc 32.0 g/dL Normal 31.4-35.9 [facility] Comment on above: Performed By: #### B LDCULT #### [facility] (DEFAULT) [address] [place] [address] Platelet mean volume (Bld) [Entitic vol] 10.8 fL Normal 8.5-12.2 [facility] Comment on above: Performed By: #### B LDCULT #### [facility] (DEFAULT) [address] [place] [address] Platelets (Bld) [#/Vol] 245 10*3/uL Normal 150-393 [facility] Comment on above: Performed By: #### B LDCULT #### [facility] (DEFAULT) [address] [place] [address] RBC (Bld) [#/Vol] 4.76 10*6/uL Normal 3.91-5.04 [facility] Comment on above: Performed By: #### B LDCULT #### [facility] (DEFAULT) [address] [place] [address] RBC Distribution 13.3 % Normal 10.8-14.9 [facility] Comment on above: Performed By: #### B LDCULT #### [facility] (DEFAULT) [address] [place] [address] WBC (Bld) [#/Vol] 8.16 10*3/uL Normal 3.99-11.19 [facility] Comment on above: Performed By: #### B LDCULT #### [facility] (DEFAULT) [address] [place] [address] CHEM 7 (LYTES,BUN,CREA,GLUC) on 08-02-2024 Anion gap [Moles/Vol] 16 mmol/L 7 - 17 mmol/L [facility] Chloride [Moles/Vol] 105 mmol/L 98 - 10 8 mmol/L [facility] CO2 [Moles/Vol] 22 mmol/L 21 - 31 mmol/L [facility] Creatinine [Mass/Vol] 1.37 mg/dL High 0.50 - 1.20 mg/dL [facility] eGFR, CKD-EPI, Female 39 Low - PINF [facility] Glucose [Mass/Vol] 210 mg/dL High 70 - 179 mg/dL [facility] Osmolality Calc [Osmolality] 299 [facility] Potassium [Moles/Vol] 3.7 mmol/L 3.5 - 5.0 mmol/L [facility] Sodium [Moles/Vol] 139 mmol/L 135 - 145 mmol/L [facility] Urea nitrogen [Mass/Vol] 18 mg/dL 7 - 25 mg/dL [facility] Urea nitrogen/Creatinine [Mass ratio] 13 mg/mg [facility] Anion gap [Moles/Vol] 16 mmol/L Normal 7-17 [facility] Comment on above: Performed By: #### [facility] #### [facility] (DEFAULT) [address] [place] [address] Chloride [Moles/Vol] 105 mmol/L Normal 98-108 [facility] Comment on above: Performed By: #### H EMO #### [facility] (DEFAULT) [address] [place] [address] CO2 [Moles/Vol] 22 mmol/L Normal 21-31 [facility] Comment on above: Performed By: #### [facility] #### [facility] (DEFAULT) [address] [place] [address] Creatinine [Mass/Vol] 1.37 mg/dL High 0.50-1.20 [facility] Comment on above: Performed By: #### [facility] #### [facility] (DEFAULT) [address] [place] [address] GFR/1.73 sq M.predicted among non-blacks MDRD (S/P/Bld) [Vol rate/Area] 39 mL/min/{1.73_m2} Low >=60 [facility] Comment on above: Result Comment: Repo rted eGFR is based on the CKD-EPI 2020 equation using creatinine, age, and sex. Performed By: #### [facility] #### [facility] (DEFAULT) [address] [place] [address] Glucose [Mass/Vol] 210 mg/dL High Nonfastin -179 mg/dL; Fastin-99 [facility] Comment on above: Performed By: #### H EMOGC #### [facility] (DEFAULT) [address] [place] [address] Osmolality [Osmolality] 299 mosm/kg Normal 278-305 [facility] Comment on above: Performed By: #### H EMO #### [facility] (DEFAULT) [address] [place] [address] 06493 Potassium [Moles/Vol] 3.7 mmol/L Normal 3.5-5.0 [facility] Comment on above: Performed By: #### H EMO #### [facility] (DEFAULT) [address] [place] [address] Sodium [Moles/Vol] 139 mmol/L Normal 135-145 [facility] Comment on above: Performed By: #### H EMO #### [facility] (DEFAULT) [address] [place] [address] Urea nitrogen [Mass/Vol] 18 mg/dL Normal 7-25 [facility] Comment on above: Performed By: #### H EMO #### [facility] (DEFAULT) [address] [place] [address] Urea nitrogen/Creatinine [Mass ratio] 13 mg/mg Normal [facility] Comment on above: Performed By: #### H EMO #### [facility] (DEFAULT) [address] [place] [address] ABDOMEN/PELVIS WITH CONTR AST VASCULAR TRAUMAon [...] grade: None. Kidney trauma grade: None. Normal [facility] CT Abdomen and Pelvis W cont rast Seth 08-02-2024 RADIOLOGY RADIOLOGY [facility] CT Abdomen and Pelvis W cont rast IVOrdered By: Edson Head on 08-02-2024 [facility] Work Phone: CT Cervical spine WO contras ton 08-02-2024 Radiology Study observation (narrative) [facility] CT Orbit WO contraston 08-02 Radiology Study observation (narrative) [facility] Carbon dioxide, total [Moles /volume] in Central venous bloodOrdered By: Pieter Morgan on 08-02-2024 CO2 [Moles/Vol] 22.0 mmol/L 21.0-32.0 [facility] Chloride assayOrdered By: Racheal Morgan on 08-02-2024 Chloride [Moles/Vol] 98 mmol/L 98-108 [facility] Emergency Department Summary on 08-02-2024 Emergency Department Summary [facility] Medical Records Department [address] [place] [address] Emergency Department Summary 08/02/24 MR#: [id number] Acct: [id number] Name: LINDSAY ACUNA NOAH Rep #: [id number] : 1945 78 From: Pieter Morgan MD [...] the EMR. states they returned home from [facility] about 1.5-2 weeks ago, and they both had colds. He is better, but she is "on round 2." [facility] Medical History Paroxysmal atrial fibrillation with [...] (more content not included)... Normal [facility] Eosinophil percentageOrdered By: Pieter Morgan on 08-02-2024 Eosinophils/100 WBC (Bld) 1.0 % 0-5 [facility] Erythrocyte distribution wid th ratioOrdered By: Pieter Morgan on 08-02-2024 Erythrocyte distribution width (RBC) [Ratio] 13.3 % 11.6-14.6 [facility] Erythrocyte distribution wid th standard deviationOrdered By: Pieter Morgan on 08-02-2024 Erythrocyte distribution width (RBC) [Entitic vol] 45.3 fL High 35.1-43.9 [facility] Erythrocyte distribution width (RBC) [Ratio] 45.3 fl High 35.1-43.9 [facility] Estimation of creatinine mackenzie aranceOrdered By: Pieter Morgan on 08-02-2024 Estimated Creatinine Clearance Calc 27.14 ml/min Low 50-250 [facility] GFR/1.73 sq M.predicted lana g non-blacks MDRD (S/P/Bld) [Vol rate/Area]Ordered By: Pieter Morgan on 08-02-2024 Estimated GFR (MDRD) Non-Af Amer 29 Low >60 [facility] Comment on above: mL/min/1.73m2 CKD-EP I Creatinine Equation (2020) Glomerular filtration rate ( GFR) estimation/1.73 sq m using serum, plasma, or whole bOrdered By: Pieter Morgan on 08-02-2024 GFR/1.73 sq M.predicted among non-blacks MDRD (S/P/Bld) [Vol rate/Area] 29 mL/min/{1.73_m2} Low >60 [facility] Comment on above: mL/min/1.73m2 CKD-EP I Creatinine Equation (2020) HEMOGLOBIN A1Con 08-02-2024 Average glucose Estimated from glycated hemoglobin (Bld) [Mass/Vol] 177 mg/dL [facility] HbA1c (Bld) [Mass fraction] 7.8 % High 4.7 - 5.6 % [facility] Interpretation and review of laboratory results Abnormal [facility] Glucose [Mass/Vol] 177 mg/dL Normal [facility] Comment on above: Performed By: #### H EMO #### [facility] (DEFAULT) [address] [place] [address] Hemoglobin A1C HPLC 7.8 % High 4.7-5.6 [facility] Comment on above: Performed By: #### H EMO #### [facility] (DEFAULT) [address] [place] [address] 72295 HEPATIC FUNCTION PANELon Albumin [Mass/Vol] 3.5 g/dL 3.5 - 5.0 g/dL [facility] ALP [Catalytic activity/Vol] 117 U/L 32 - 126 U/L [facility] ALT [Catalytic activity/Vol] 10 U/L 9 - 48 U/L [facility] AST [Catalytic activity/Vol] 17 U/L 10 - 39 U/L [facility] Bilirubin [Mass/Vol] 0.6 mg/dL NINF - 1.5 mg/dL [facility] Bilirubin.direct [Mass/Vol] 0.1 mg/[facility]/dL [facility] Protein [Mass/Vol] 6.3 g/dL Low 6.4 - 8.3 g/dL [facility] Albumin [Mass/Vol] 3.5 g/dL Normal 3.5-5.0 [facility] Comment on above: Performed By: #### [facility] #### [facility] (DEFAULT) [address] [place] [address]72 ALP [Catalytic activity/Vol] 117 U/L Normal 32-126 [facility] Comment on above: Performed By: #### H EMO #### [facility] (DEFAULT) [address] [place] [address] ALT [Catalytic activity/Vol] 10 U/L Normal 9-48 [facility] Comment on above: Performed By: #### H EMO #### [facility] (DEFAULT) [address] [place] [address] 96763 AST [Catalytic activity/Vol] 17 U/L Normal 10-39 [facility] Comment on above: Performed By: #### H EMO #### [facility] (DEFAULT) [address] [place] [address] 49352 Bilirubin [Mass/Vol] 0.6 mg/dL Normal <1.5 [facility] Comment on above: Performed By: #### H EMOGC #### [facility] (DEFAULT) [address] [place] [address] 48741 Bilirubin.indirect [Mass/Vol] 0.1 mg/dL Normal <0.3 [facility] Comment on above: Performed By: #### H EMOGC #### [facility] (DEFAULT) [address] [place] [address] 64245 Protein [Mass/Vol] 6.3 g/dL Low 6.4-8.3 [facility] Comment on above: Performed By: #### [facility] #### [facility] (DEFAULT) [address] [place] [address] 34802 HIGH SENSITIVITY TROPONIN I - SINGLE ORDERon 08-02-2024 Interpretation and review of laboratory results Normal [facility] Troponin I.cardiac High sensitivity method [Mass/Vol] 9 ng/L NINF - 34 ng/L [facility] hs-Troponin I 9 ng/L Normal <34 [facility] Comment on above: Order Comment: 2 [...] bottle. Performed By: #### B LDCULT #### [facility] (DEFAULT) [address] [place] [address] 84380 Hematocrit Auto (Bld) [Volum e fraction]Ordered By: Pieter Morgan on 08-02-2024 Hematocrit (Bld) [Volume fraction] 42.0 % 37-47 [facility] Hemoglobin measurementOrdere d By: Pieter Cathy on 08-02-2024 Hemoglobin (Bld) [Mass/Vol] 13.8 g/dL 12.0-15.0 [facility] Immature granulocytes/100 WB C Auto (Bld)Ordered By: Pieter Morgan on 08-02-2024 Immature granulocytes/100 WBC (Bld) 0.300 % 0.0-0.9 [facility] Comment on above: IG% - Immature Granu locytes (promyelocytes, myelocytes and metamyelocytes) > 1% indicates that a LEFT SHIFT is Present. Influenza virus A and B and SARS-CoV-2 (COVID-19) and Respiratory syncytial virus RNAOrdered By: Pieter Cathy on 08-02-2024 SARS-CoV-2 (COVID-19) RNA CHUCKY+probe Ql (Unsp spec) [facility] International normalized rat io (INR) calculationOrdered By: Pieter Morgan on 08-02-2024 INR Coag (Bld) [Relative time] 1.1 {INR} [facility] L499.0042on 08-02-2024 Trop T High Sen Normal <=14 [facility] Comment on above: Result Comment: Canc elled via OM: Order cancelled - Patient discharged Performed By: #### L 499.0042 ####[facility] [address] [place], [address] L499.0043on 08-02-2024 Trop T High Sen Normal <=14 [facility] Comment on above: Result Comment: Canc elled via OM: Order cancelled - Patient discharged Performed By: #### L 499.0043 ####[facility] [address] [place], [address] L501.4021on 08-02-2024 Trop T High Sen 38 ng/L High <=14 [facility] Comment on above: Performed By: #### L 300.4310, L501.4021, L300.3900, L500.2500, L100.0100 ####[facility] [address] [place], [place], [id number] LIPID PANEL WITH REFLEX TO M [place] LDLon 08-02-2024 Cholesterol [Mass/Vol] 141 mg/dL NINF - 200 mg/dL [facility] Cholesterol in HDL [Mass/Vol] 38 mg/dL Low 40 - PINF mg/dL [facility] Cholesterol in LDL [Mass/Vol] 84 mg/dL 0 - 99 mg/dL [facility] Cholesterol non HDL [Mass/Vol] 103 mg/dL NINF - 130 mg/dL [facility] Cholesterol.total/Alta sterol in HDL [Mass ratio] 3.7 {ratio} NINF - 4.5 [facility] Triglyceride [Mass/Vol] 96 mg/dL NINF - 150 mg/dL [facility] Calculated LDL Cholesterol 84 mg/dL Normal 0-99 [facility] Comment on above: Result Comment: [<10 0 mg/dL: Optimal] [100-129 mg/dL: Near Optimal] [130-159 mg/dL: Borderline High] [160-189 mg/dL: High] [>189 mg/dL: Very High] Performed By: #### [facility] #### [facility] (DEFAULT) [address] [place] [address] 29483 Cholesterol [Mass/Vol] 141 mg/dL Normal <200 [facility] Comment on above: Result Comment: [<20 0 mg/dL: Desirable] [200-239 mg/dL: Borderline High] [>239 mg/dL: High] Performed By: #### [facility] #### [facility] (DEFAULT) [address] [place] [address] 12679 Cholesterol in HDL [Mass/Vol] 38 mg/dL Low >=40 [facility] Comment on above: Result Comment: [<40 mg/dL: Low (High Risk)] [>59 mg/dL: High (Low Risk)] Performed By: #### H EMO #### [facility] (DEFAULT) [address] [place] [address] 11047 Non HDL Cholesterol 103 mg/dL Normal <130 [facility] Comment on above: Performed By: #### [facility] #### [facility] (DEFAULT) [address] [place] [address] 85454 Total Cholesterol/HDL Ratio 3.7 Normal <4.5 [facility] Comment on above: Performed By: #### [facility] #### [facility] (DEFAULT) [address] [place] [address] 34381 Triglyceride [Mass/Vol] 96 mg/dL Normal <150 [facility] Comment on above: Result Comment: [<15 0 mg/dL: Desirable] [150-199 mg/dL: Borderline] [200-499 mg/dL: High] [>500 mg/dL: Very High] Performed By: #### [facility] #### [facility] (DEFAULT) [address] [place] [address] 83748 Lymphocytes Auto (Unsp spec) [#/Vol]Ordered By: Pieter Morgan on 08-02-2024 Lymphocytes (Bld) [#/Vol] 1.56 10*3/uL 0.83-4.51 [facility] Lymphocytes/100 WBC Auto (Un sp spec)Ordered By: Pieter Morgan on 08-02-2024 Lymphocytes/100 WBC (Bld) 17.9 % Low 19-41 [facility] M100.678on 08-02-2024 M100.678 Pending SARS-CoV-2 (COVID 19) Negative INFLUENZA A Negative INFLUENZA B Negative RSV PCR Negative Normal [facility] Comment on above: Performed By: #### M 100.678 #### [facility] [address] [place], [place], [id number] MAGNESIUMon 08-02-2024 Magnesium [Mass/Vol] 1.2 mg/dL Low 1.6 - 2 .6 mg/dL [facility] Magnesium [Mass/Vol] 1.2 mg/dL Low 1.6-2.6 [facility] Comment on above: Performed By: #### [facility] #### [facility] (DEFAULT) [address] [place] [address] MCV (mean corpuscular volume ) determinationOrdered By: Pieter Morgan on 08-02-2024 MCV (RBC) [Entitic vol] 92.1 fL 81-99 [facility] Mean corpuscular hemoglobin (MCH) determinationOrdered By: Pieter Morgan on 08-02-2024 MCH (RBC) [Entitic mass] 30.3 pg 27.0-32.0 [facility] Mean corpuscular hemoglobin concentration (MCHC) determinationOrdered By: Pieter Morgan on 08-02-2024 MCHC (RBC) [Mass/Vol] 32.9 g/dL 32-36 [facility] Mean platelet volume determi nationOrdered By: Pieter Morgan on 08-02-2024 Platelet mean volume (Bld) [Entitic vol] 10.7 fL 6.2-12.0 [facility] Monocyte percentageOrdered B y: Pieter Morgan on 08-02-2024 Monocytes/100 WBC (Bld) 8.9 % 0-10 [facility] NT-PRO B-TYPE NATRIURETIC PE PTIDEon 08-02-2024 Natriuretic peptide B (Bld) [Mass/Vol] 1115 pg/mL High <=540 [facility] Comment on above: Performed By: #### [facility] #### [facility] (DEFAULT) [address] [place] [address] Neutrophil percentageOrdered By: Pieter Morgan on 08-02-2024 Neutrophils/100 WBC (Bld) 71.4 % High 47-70 [facility] No Panel Informationon 08-02 Radiology Study observation (narrative) [facility] Interpretation and review of laboratory results Abnormal [facility] No Panel InformationOrdered By: Pieter Morgan on 08-02-2024 Troponin T High Sensitivity 38 ng/L High <14 [facility] Nucleated red blood cell per centageOrdered By: Pieter Morgan on 08-02-2024 Nucleated RBC/100 WBC (Bld) [Ratio] 0 % 0-5 [facility] PT,INR,PTTon 08-02-2024 aPTT Coag (PPP) [Time] 26.9 s OS [facility] INR Coag (Bld) [Relative time] 1.1 {INR} 0.9 - 1.1 [facility] Interpretation and review of laboratory results Normal [facility] PT Coag (PPP) [Time] 13.9 s [facility] Coag (Bld) [Time] 26.9 s Normal 24.0-34.3 [facility] Comment on above: Performed By: #### P TPTT ####[facility] (DEFAULT)[address] [place] [address] INR Coag (PPP) [Relative time] 1.1 {INR} Normal 0.9-1.1 [facility] Comment on above: Performed By: #### P TPTT ####[facility] (DEFAULT)[address] [place] [address] PT Coag (PPP) [Time] 13.9 s Normal 11.9-14.2 [facility] Comment on above: Performed By: #### P TPTT ####[facility] (DEFAULT)[address] [place] [address] Partial Thromboplast Timeon 08-02-2024 aPTT Coag (Bld) [Time] 28.4 s Normal 24.1-36.2 [facility] Comment on above: Performed By: #### L 300.4310, L501.4021, L300.3900, L500.2500, L100.0100 #### [facility] [address] [place], [place], [id number] Platelet countOrdered By: Racheal Morgan on 08-02-2024 Platelets (Bld) [#/Vol] 214 10*3/uL 150-450 [facility] Potassium (Unsp spec) [Mass/ Vol]Ordered By: Pieter Morgan on 08-02-2024 Potassium [Moles/Vol] 4.2 mmol/L 3.3-5.1 [facility] Potassium measurement (mass/ volume)Ordered By: Pieter Morgan on 08-02-2024 Potassium (Unsp spec) [Mass/Vol] 4.2 mmol/L 3.3-5.1 [facility] Prothrombin Time w/INRon INR Coag (PPP) [Relative time] 1.1 {INR} Normal [facility] Comment on above: Performed By: #### L 300.4310, L501.4021, L300.3900, L500.2500, L100.0100 #### [facility] [address] [place], [address] PT Coag (PPP) [Time] 14.1 s Normal 11.7-14.9 [facility] Comment on above: Performed By: #### L 300.4310, L501.4021, L300.3900, L500.2500, L100.0100 #### [facility] [address] [place], [place], [id number] Prothrombin timeOrdered By: Pieter Morgan on 08-02-2024 PT Coag (PPP) [Time] 14.1 s 11.7-14.9 [facility] RBC Auto (Bld) [#/Vol]Ordere d By: Pieter Cathy on 08-02-2024 RBC (Bld) [#/Vol] 4.56 10*6/uL 4.2-5.4 [facility] SCREEN: MRSA/MSSAon 08-03-19 25 Methicillin Resistant S. Aureus By Pcr Negative Normal Negative [facility] Comment on above: Order Comment: Colle [...] by the Clinical Microbiology Laboratory at [facility]. It has not been cleared or approved by the FDA.The laboratory is regulated under CLIA as qualified to perform high-complexity testing. This test is used for clinical purposes. It should not be regarded as investigational or for research. Performed By: #### T YPEC #### [facility] (DEFAULT) [address] [address] Staphylococcus Aureus By Pcr Negative Normal Negative [facility] Comment on above: Order Comment: Colle [...] by the Clinical Microbiology Laboratory at [facility]. It has not been cleared or approved by the FDA.The laboratory is regulated under CLIA as qualified to perform high-complexity testing. This test is used for clinical purposes. It should not be regarded as investigational or for research. Performed By: #### T YPEC #### [facility] (DEFAULT) [address] [address] STROKE Brain/Head without Co nton 08-02-2024 STROKE Brain/Head without Cont [facility] Imaging Services [address] [place] [address] [id number] STROKE Brain/Head without Cont MR#: [id number] Acct: [id number] Name: LINDSAY ACUNA Rep #: [id number] : 1945 F 78 From: Kameron Cardoso MD PCP: Dr. Kameron Caruso MD Status: REG ER Study: STROKE Brain/Head without Cont Date of Exam: 0 08/02/24 Exam# [id number] Ordering Dr: Pieter Morgan MD EXAM: CT [...] at 1250 hours. Reading Location: [facility] CC: Dr. Pieter Morgan MD; Dr. Kameron Caruso MD Central Scheduler: Signed Normal [facility] STROKE CTA Head AND Neck W/C onon 08-02-2024 STROKE CTA Head AND Neck W/Con [facility] Imaging Services [address] [place] [address] STROKE CTA Head AND Neck W/Con MR#: [id number] Acct: [id number] Name: LINDSAY ACUNA Rep #: [id number] : 1945 F 78 From: August ibrahim MD PCP: Dr. Kameron Caruso MD Status: REG ER Study: STROKE CTA Head AND Neck W/Con Date of Exam: 0 08/02/24 Exam# [id number] Ordering Dr: Pieter Morgan MD PROCEDURE: STROKE [...] significant stenosis seen. Reading Location: [place] [address] CC: Dr. Pieter Morgan MD; Dr. Kameron Caruso MD Central Scheduler: Signed Normal [facility] Serum creatinine measurement (mass/volume)Ordered By: Pieter Morgan on 08-02-2024 Creatinine [Mass/Vol] 1.74 mg/dL High 0.70-1.20 [facility] Serum glucose measurement (m ass/volume)Ordered By: Pieter Morgan on 08-02-2024 Glucose [Mass/Vol] 235 mg/dL High 70-99 [facility] Serum or plasma calcium dayna urement (mass/volume)Ordered By: Pieter Morgan on 08-02-2024 Calcium [Mass/Vol] 9.0 mg/dL 7.6-11.0 [facility] Serum or plasma urea nitroge n measurement (mass/volume)Ordered By: Pieter Morgan on 08-02-2024 Urea nitrogen [Mass/Vol] 20 mg/dL High 4-19 [facility] Sodium levelOrdered By: Evert Morgan on 08-02-2024 Sodium [Moles/Vol] 132 mmol/L Low 133-145 [facility] TSH W/FT4 REFLEXon Interpretation and review of laboratory results Normal [facility] TSH Qn 1.662 m[IU]/L [facility] TSH 1.662 uIU/mL Normal 0.550-4.780 [facility] Comment on above: Performed By: #### X M #### [facility] (DEFAULT) [address] [place] [address] TYPE AND SCREENon 08-02-2024 ABO/RH(D) TYPE Negative [facility] Specimen Expiration 08/05/2024 23:59 [facility] ABO/RH(D) TYPE Negative Normal [facility] Comment on above: Performed By: #### X M #### [facility] (DEFAULT) [address] [place] [address] Specimen Expiration 08/05/2024 23:[address] [facility] Comment on above: Performed By: #### X M #### [facility] (DEFAULT) [address] [place] [address] URINALYSIS REFLEX TO CULTURE PERFORMABLEOrdered By: Namita De La Cruz on 08-02-2024 Appearance (U) Clear Clear [facility] Bacteria LM Ql (Urine sed) PRESENT Abnormal ABSENT [facility] Color (U) Yellow Yellow [facility] Epithelial cells.squamous LM Ql (Urine sed) 0-2/hpf 0-2/hpf, 3-5/hpf = 1+ [facility] Glucose Test strip (U) [Mass/Vol] 500 mg/dL Abnormal Negative [facility] Interpretation and review of laboratory results Abnormal [facility] Ketones (U) [Mass/Vol] Negative Negative OS [facility] Leukocyte esterase Test strip Ql (U) Moderate Abnormal Negative [facility] Nitrite Ql (U) Negative Negative [facility] pH (U) 6.5 [pH] 5.0 - 7.0 [facility] Protein (U) [Mass/Vol] Negative Negative OS [facility] RBC (U) [#/Vol] Small Abnormal Negative [facility] RBC LM.HPF (Urine sed) [#/Area] 3-5 Abnormal [facility] Specific gravity (U) [Rel density] 1.022 1.001 - 1.035 [facility] Urobilinogen (U) [Mass/Vol] 0.2 E.U./dL 0.2 E.U/dL, 1.0 E.U/dL [facility] WBC LM.HPF (Urine sed) [#/Area] /[HPF] Abnormal [facility] URINALYSIS REFLEX TO CULTURE PERFORMABLEon 08-02-2024 Appearance (U) Clear Normal Clear [facility] Comment on above: Order Comment: For i ndwelling catheters, specimen collection is acceptable on catheter day 1 and 2 only. ? Performed By: #### U [id number] #### [facility] (DEFAULT) [address] [place] [address] Bacteria PRESENT Abnormal ABSENT [facility] Comment on above: Order Comment: For i ndwelling catheters, specimen collection is acceptable on catheter day 1 and 2 only. ? Performed By: #### U [id number] #### [facility] (DEFAULT) [address] [place] [address] Blood Urine Small Abnormal Negative [facility] Comment on above: Order Comment: For i ndwelling catheters, specimen collection is acceptable on catheter day 1 and 2 only. ? Performed By: #### U [id number] #### [facility] (DEFAULT) [address] [place] [address] Color (U) Yellow Normal Yellow [facility] Comment on above: Order Comment: For i ndwelling catheters, specimen collection is acceptable on catheter day 1 and 2 only. ? Performed By: #### U [id number] #### [facility] (DEFAULT) [address] [place] [address] Glucose Ql (U) 500 mg/dL Abnormal Negative [facility] Comment on above: Order Comment: For i ndwelling catheters, specimen collection is acceptable on catheter day 1 and 2 only. ? Performed By: #### U [id number] #### [facility] (DEFAULT) [address] [place] [address] Ketones Ql (U) Negative Normal Negative [facility] Comment on above: Order Comment: For i ndwelling catheters, specimen collection is acceptable on catheter day 1 and 2 only. ? Performed By: #### U [id number] #### [facility] (DEFAULT) [address] [place] [address] Leukocyte esterase Test strip Ql (U) Moderate Abnormal Negative [facility] Comment on above: Order Comment: For i ndwelling catheters, specimen collection is acceptable on catheter day 1 and 2 only. ? Performed By: #### U [id number] #### U [facility] (DEFAULT) [address] [place] [address] Nitrites Urine Negative Normal Negative [facility] Comment on above: Order Comment: For i ndwelling catheters, specimen collection is acceptable on catheter day 1 and 2 only. ? Performed By: #### U [id number] #### U [facility] (DEFAULT) [address] [place] [address] pH (U) 6.5 [pH] Normal 5.0-7.0 [facility] Comment on above: Order Comment: For i ndwelling catheters, specimen collection is acceptable on catheter day 1 and 2 only. ? Performed By: #### U [id number] #### [facility] (DEFAULT) [address] [place] [address] Protein Urine Negative Normal Negative [facility] Comment on above: Order Comment: For i ndwelling catheters, specimen collection is acceptable on catheter day 1 and 2 only. ? Performed By: #### U [id number] #### [facility] (DEFAULT) [address] [address] RBC Urine 3-5 Abnormal 0-2 [facility] Comment on above: Order Comment: For i ndwelling catheters, specimen collection is acceptable on catheter day 1 and 2 only. ? Performed By: #### U [id number] #### [facility] (DEFAULT) [address] [address] Specific [place] Urine 1.022 Normal 1.001-1.035 O [facility] Comment on above: Order Comment: For i ndwelling catheters, specimen collection is acceptable on catheter day 1 and 2 only. ? Performed By: #### U [id number] #### [facility] (DEFAULT) [address] [address] Squamous/Epithelial Cells, Urine 0-2/hpf Normal 0-2/hpf, 3-5/hpf = 1+ [facility] Comment on above: Order Comment: For i ndwelling catheters, specimen collection is acceptable on catheter day 1 and 2 only. ? Performed By: #### U [id number] #### [facility] (DEFAULT) [address] [address] Urobilinogen Urine 0.2 E.U./dL Normal 0.2 E.U/d L, 1.0 E.U/dL [facility] Comment on above: Order Comment: For i ndwelling catheters, specimen collection is acceptable on catheter day 1 and 2 only. ? Performed By: #### U [id number] #### [facility] (DEFAULT) [address] [address] WBC LM.HPF (Urine sed) [#/Area] /[HPF] Abnormal 0 - 5 [facility] Comment on above: Order Comment: For i ndwelling catheters, specimen collection is acceptable on catheter day 1 and 2 only. ? Performed By: #### U [id number] #### [facility] (DEFAULT) [address] [address] VON WILLEBRAND FACTOR AGon 0 08-02-2024 Von Willebrand Factor Antigen 230 % High 50-180 [facility] Comment on above: Performed By: #### H [facility] #### [facility] (DEFAULT) [address] [place] [address] White blood cell (WBC) count Ordered By: Pieter Morgan on 08-02-2024 WBC (Bld) [#/Vol] 8.7 10*3/uL 4.4-11.0 [facility] XR Elbow - right 2 Viewson 0 08-02-2024 Radiology Study observation (narrative) [facility] XR Humerus - right Viewson 0 08-02-2024 Radiology Study observation (narrative) [facility] XR Wrist - right 3 [facility]son 0 08-02-2024 Radiology Study observation (narrative) [facility] aPTT Coag (PPP) [Time]Ordere d By: Pieter Morgan on 08-02-2024 aPTT Coag (Bld) [Time] 28.4 s 24.1-36.2 [facility] CNPNon 07-03-2024 CNPN Telephone (FAMPWS) LINSDAY ACUNA ([id number]) 1945 F Date Time Provider Department 07/03/24 [...] calling: self Call patient at: on cell [phone] (home) [phone] (cell) Was an appointment scheduled: No Closing [...] Encounter Status:Closed by MJ GLOVER on 07/03/24 [facility] [place] 07-02-2024 [facility] Telephone (CONEXANCE MDWS) LINDSAY ACUNA ([id number]) 1945 F Date Time Provider Department 07/02/24 KAMERON CARUSO [facility] During your visit today, we recorded the following information about you: Katia Álvarez RN 07/02/2024 11:57 AM Signed Patient calls and is requesting Cardiology referral to be faxed to [facility]. Faxed referral as requested. [...] Encounter Status:Closed by KATIA ÁLVAREZ on 07/02/24 [facility] 06-28-2024 CNPN Telephone (FAMPTW) LINDSAY ACUNA ([id number]) 1945 F Date Time Provider Department 06/28/24 [...] calling: self Call patient at: on cell [phone] (home) [phone] (cell) Was an appointment scheduled: No [facility] Adenike Walton MA 06/28/2024 3:08 PM Signed [...] day for 7 days. Authorizing Provider: MJ LGOVER APRN.CNP Ferriman, Barbara, LPN 07/01/2024 12:40 PM [...] Encounter Status:Closed by BRET ARAMBULA on 07/01/24 [facility] CNOVon 06-26-2024 CNOV Office Visit (MILTONWS ) LINDSAY ACUNA ([id number]) 1945 F Date Time Provider Department 06/26/24 9:40 AM EMMA GLASGOW During your visit today, we recorded the following information about you: Pulse Respiration Blood pressure Weight 93/minute 16/minute 144/88 78.9 kg Emma Glasgow APRN.TOBACCO STEMMER 06/26/2024 12:37 PM Signed This is a [...] times daily Dx: E11.29 Insulin: No lancets (Audible MagicTOUCH DELICA PLUS LANCET) 30 gauge Test blood [...] swelling RESP (more content not included)... Normal [facility] 06-24-2024 G[facility]TTN Telephone (FAMPWS) LINDSAY ACUNA ([id number]) 1945 F Date Time Provider Department 06/24/24 KAMERON CARUSO During your visit today, we recorded the following information about you: Katia Álvarez RN 06/24/2024 1:22 PM Signed Patient calls and states that she is going to be going to [facility] and will need medications for Malaria [...] daily with breakfast. - blood sugar diagnostic (Vizi LabsUCH ULTRA TEST) test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 prevention optimal non HDL Cholesterol levels are recommended to be <100 mg/dL Performed By: #### 3 016-3, 47555-0, 61309-7 ####[facility] LABCLIA [id number] [place] [address] [place] Cholesterol.total/Alta sterol in HDL [Mass ratio] 3.80 {ratio} Normal <5.10 [facility] Comment on above: Order Comment: Speci men Type: BLOOD SPECIMENOrdering Facility: [facility] Address: [address] [place] [address] Performed By: #### 3 016-3, 70384-6, 86221-1 ####[facility] LABCLIA [id number] [place] [address] [place] FASTING TIME 12 hrs Normal [facility] Comment on above: Order Comment: Speci men Type: BLOOD SPECIMENOrdering Facility: [facility] Address: [address] [place] [address] Performed By: #### 3 016-3, 91089-3, 64160-8 ####[facility] LABCLIA [id number] [place] [address] [place] Triglyceride [Mass/Vol] 148 mg/dL Normal <150 [facility] Comment on above: Order Comment: Speci men Type: BLOOD SPECIMENOrdering Facility: [facility] Address: [address] [place] [address] Result Comment: <150 mg/dL, Normal 150-199 mg/dL, Borderline high 200-499 mg/dL, High >499 mg/dL, Very high Performed By: #### 3 016-3, 78926-9, 71744-6 ####[facility] LABCLIA [id number] [place] [address] [place] TSH SerPl-aCncon 11-27-2023 TSH Qn 1.870 m[IU]/L Normal 0.270-4.200 [facility] Comment on above: Order Comment: Speci men Type: BLOOD SPECIMENOrdering Facility: [facility] Address: [address] [place] [address] Performed By: #### 3 016-3, 86146-2, 13472-7 ####[facility] LABCLIA [id number] [address] OF [place] CNOVon 10-10-2023 CNOV Office Visit (UCWSTR ) LINDSAY ACUNA ([id number]) 1945 F Date Time Provider Department 10/10/23 7:30 AM DAVID DUPREE [facility] [[email or web address]] During your visit today, we recorded the following information about you: Temperature Pulse Respiration Blood pressure 97.5 degrees 58/minute 18/minute 128/82 Weight 82.1 kg David Dupree APRN.TOBACCO STEMMER 10/10/2023 8:11 AM Signed Subjective HPI Nontoxic-appearing [...] Rate and (more content not included)... Normal [facility] CNOVon 09-29-2023 CNOV Office Visit (UCWSTR ) LINDSAY ACUNA ([id number]) 1945 F Date Time Provider Department 09/29/23 2:15 PM RADHA LEVINE [facility] [[email or web address]] During your visit today, we recorded the following information about you: Temperature Pulse Respiration Blood pressure 97.8 degrees 54/minute 18/minute 148/91 Weight 84 kg Radha Levine, [facility] 09/29/2023 6:12 PM Signed This note was created using NoteWriter. Subjective Lindsay Acuna is a 77 year old female. 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 Denies fever or chills Denies malaise or fatigue Denies new lotions, soaps, or medicines States that she was working out in the garden the same day the rash erupted. The history is provided by the patient. No interpreter deaf was used. Rash This is a new [...] mouth daily before breakfast. blood sugar diagnostic (Audyssey ULTRA TEST) test strip Test Blood Sugar [...] 30 seconds then expectorate blood sugar diagnostic (Audible MagicTOUCH ULTRA TEST STRIP) test strip Use to [...] state. Hematologi (more content not included)... Normal [facility] Glucose,Bedsideon 04-16-2019 Glucose [Mass/Vol] 161 mg/dL High 70-100 [facility] Comment on above: Result Comment: Test performed by glucose meter. Results may be 10%-15% lower than serum/plasma values. (CLIA ID [id number]) Performed By: #### B GLU #### [address] [address] Surgical Pathologyon 019 Surgical Pathology [id number] [facility] PATHOLOGY AND LABORATORY MEDICINE [address] [place] [address] FINAL SURGICAL PATHOLOGY REPORT ___ NAME: LINDSAY ACUNA : 1945 73 Y F BILLING NO.: [id number] LOCATION: 1XEO PROCEDURE 01/09/2019 DATE: SURGEON: SANTIAGO [...] determined by the clinical laboratories of [facility]. They have not been cleared by the [...] negativity on decalcified specimens. Professional Performing Location: [address] [address]. DEPARTMENT OF PATHOLOGY AND LABORATORY MEDICINE [place], [place] [address] Normal [facility] .Auto Diffon 08-22-2018 Ammonia mass conc (P) 1.10 10 3/mcL High 0.15-1.00 [facility] ([place]) Comment on above: Performed By: #### B DAYANARA VALVERDE #### [address] [address] Basophils #/vol (Bld) 0.00 10 3/mcL Normal 0.00-0.19 [facility] ([place]) Comment on above: Performed By: #### B MP, GFR #### [address] [address] Basophils/100 WBC (Bld) 0.3 % Normal 0.0-2.5 [facility] ([place]) Comment on above: Performed By: #### B MP, GFR #### [address] [address] Eosinophils #/vol (Bld) 0.00 10 3/mcL Normal 0.00-0.40 [facility] ([place]) Comment on above: Performed By: #### B MP, GFR #### [address] [address] Eosinophils/100 WBC (Bld) 0.2 % Normal 0.0-7.0 [facility] ([place]) Comment on above: Performed By: #### B MP, GFR #### [address] [address] Lymphocytes #/vol (Bld) 2.20 10 3/mcL Normal 0.77-3.85 [facility] ([place]) Comment on above: Performed By: #### B MP, GFR #### [address] [address] Lymphocytes/100 WBC (Bld) 20.5 % Normal 10.0-50.0 [facility] ([place] Comment on above: Performed By: #### B MP, GFR #### [address] [address] Monocytes/100 WBC (Bld) 10.5 % Normal 1.7-13.0 [facility] ([place]) Comment on above: Performed By: #### B MP, GFR #### [address] [address] Neutrophils/100 WBC (Bld) 68.5 % Normal 37.0-80.0 [facility] ([place]) Comment on above: Performed By: #### B MP, GFR #### [address] [address] .GFRon 08-22-2018 GFR Non- 33 ml/min/1.73sqm Normal [facility] ([place]) Comment on above: Result Comment: [...] Performed By: #### B MP, GFR #### [address] [address] #### DORY LOPEZ, ANEU #### [address] [address] GFR 40 ml/min/1.73sqm Normal [facility] ([place]) Comment on above: Result Comment: [...] Performed By: #### B MP, GFR #### [address] [address] #### CBC, ADIFF, ANEU #### [address] [address] .NEUABSon 08-22-2018 Neutrophils #/vol (Bld) 7.40 10 3/mcL High 2.85-6.16 [facility] ([place] Comment on above: Performed By: #### B MP, GFR #### [place] [address] BMPon 08-22-2018 Calcium mass conc 8.3 mg/dL Low 8.4-10.2 [facility] ([place]) Comment on above: Performed By: #### B MP, GFR #### [place] [address] #### CBC, ADIFF, ANEU #### [place] [address] Chloride molar conc 104 mmol/L Normal 98-107 [facility] ([place]) Comment on above: Performed By: #### B MP, GFR #### [place] [address] #### CBC, ADIFF, ANEU #### [address] [address] CO2 molar conc 25 mmol/L Normal 23-31 [facility] ([place] Comment on above: Performed By: #### B MP, GFR #### [place] [address] #### CBC, ADIFF, ANEU #### [place] [address] Creatinine mass conc 1.53 mg/dL High 0.55-1.02 [facility] ([place]) Comment on above: Performed By: #### B MP, GFR #### [place] [address] #### CBC, ADIFF, ANEU #### [place] [address] Electrolyte Balance 10.0 mEq/L Normal [facility] ([place] Comment on above: Performed By: #### B MP, GFR #### [place] [address] #### CBC, ADIFF, ANEU #### [address] [address] Glucose mass conc 149 mg/dL High 83-110 [facility] ([place] Comment on above: Performed By: #### B MP, GFR #### [address] [address] #### CBC, ADIFF, ANEU #### [address] [address] Potassium molar conc 4.3 mmol/L Normal 3.5-5.1 [facility] ([place] Comment on above: Performed By: #### B MP, GFR #### [address] [address] #### CBC, ADIFF, ANEU #### [address] [address] Sodium molar conc 139 mmol/L Normal 136-145 [facility] ([place]) Comment on above: Performed By: #### B MP, GFR #### [place] [address] #### CBC, ADIFF, ANEU #### [address] [address] Urea nitrogen mass conc 32 mg/dL High 7-18 [facility] ([place]) Comment on above: Performed By: #### B MP, GFR #### [address] [address] #### CBC, ADIFF, ANEU #### [address] [address] Urea nitrogen/Creatinine mass ratio 21 ratio Normal 7-27 [facility] ([place] Comment on above: Performed By: #### B MP, GFR #### [address] [address] #### CBC, ADIFF, ANEU #### [address] [address] CBCon 08-22-2018 Erythrocyte distribution width Ratio (RBC) 12.6 % Normal 11.5-14.5 [facility] ([place]) Comment on above: Performed By: #### B MP, GFR #### [place] [address] Hematocrit Volume Fraction (Bld) 27.5 % Low 37.0-47.0 [facility] ([place] Comment on above: Performed By: #### B MP, GFR #### [address] [address] Hemoglobin mass conc (Bld) 9.2 G/dL Low 12.0-16.0 [facility] ([place] Comment on above: Performed By: #### B MP, GFR #### [place] [address] MCH Entitic mass (RBC) 30.1 pg Normal 27.0-31.2 [facility] ([place]) Comment on above: Performed By: #### B MP, GFR #### [place] [address] MCHC mass conc (RBC) 33.5 G/dL Normal 33.0-37.0 [facility] ([place] Comment on above: Performed By: #### B MP, GFR #### [place] [address] MCV Entitic volume (RBC) 89.8 fL Normal 80.0-94.0 [facility] ([place] Comment on above: Performed By: #### B MP, GFR #### [address] [address] Platelet mean volume Entitic volume (Bld) 9.3 fL Normal 7.4-10.4 [facility] ([place] Comment on above: Performed By: #### B MP, GFR #### [address] [address] Platelets #/vol (Bld) 224 10 3/mcL Normal 130-400 [facility] ([place]) Comment on above: Performed By: #### B MP, GFR #### [address] [address] RBC #/vol (Bld) 3.06 10 6/mcL Low 4.20-5.40 [facility] ([place]) Comment on above: Performed By: #### B MP, GFR #### [facility] [address] [place] [address] WBC #/vol (Bld) 10.80 10 3/mcL Normal 4.60-10.80 [facility] ([place]) Comment on above: Performed By: #### B MP, GFR #### [facility] [address] [place] [address] XR KNEE 1 OR 2 VIEWS RIGHTon [...] AM Sign Date: 08/21/2018 9:55:37 AM Normal [facility] ([place]) CT KNEE W/O CONTRAST RIGHTon [...] PM Sign Date: 08/09/2018 5:04:12 PM Normal [facility] ([place]) .Auto Diffon 08-06-2018 Ammonia mass conc (P) 0.80 10 3/mcL Normal 0.15-1.00 [facility] ([place]) Comment on above: Performed By: #### C DORY SMITH, ANEU #### [place] [address] #### A1C #### [address] [address] Basophils #/vol (Bld) 0.10 10 3/mcL Normal 0.00-0.19 [facility] ([place]) Comment on above: Performed By: #### C DORY SMITH, ANEU #### [place] [address] #### A1C #### [address] [address] Basophils/100 WBC (Bld) 0.6 % Normal 0.0-2.5 [facility] ([place] Comment on above: Performed By: #### C DORY SMITH, ANEU #### [place] [address] #### A1C #### [address] [address] Eosinophils #/vol (Bld) 0.20 10 3/mcL Normal 0.00-0.40 [facility] ([place] Comment on above: Performed By: #### C DORY SMITH, ANEU #### [place] [address] #### A1C #### [address] [address] Eosinophils/100 WBC (Bld) 1.7 % Normal 0.0-7.0 [facility] ([place] Comment on above: Performed By: #### C SARAH ADCAROL, ANEU #### [place] [address] #### A1C #### [address] [address] Lymphocytes #/vol (Bld) 1.90 10 3/mcL Normal 0.77-3.85 [facility] ([place]) Comment on above: Performed By: #### C BC ADIFF, ANEU #### [address] [address] #### A1C #### [facility] [address] [place] [address] Lymphocytes/100 WBC (Bld) 20.8 % Normal 10.0-50.0 [facility] ([place] Comment on above: Performed By: #### C BC ADIFF, ANEU #### [address] [address] #### A1C #### [facility] [address] [place] [address] Monocytes/100 WBC (Bld) 9.3 % Normal 1.7-13.0 [facility] ([place] Comment on above: Performed By: #### C BC ADIFF, ANEU #### [address] [address] #### A1C #### [address] [address] Neutrophils/100 WBC (Bld) 67.6 % Normal 37.0-80.0 [facility] ([place] Comment on above: Performed By: #### C DORY SMITH, ANEU #### [address] [address] #### A1C #### [address] [address] .GFRon 08-06-2018 GFR 51 ml/min/1.73sqm Normal [facility] ([place]) Comment on above: Result Comment: [...] Performed By: #### B MP, GFR #### [address] [address] GFR Non- 42 ml/min/1.73sqm Normal [facility] ([place]) Comment on above: Result Comment: [...] Performed By: #### B MP, GFR #### [place] [address] .NEUABSon 08-06-2018 Neutrophils #/vol (Bld) 6.20 10 3/mcL High 2.85-6.16 [facility] ([place]) Comment on above: Performed By: #### DORY SOTO, ANEU #### [address] [address] #### A1C #### [place] [address] A1Con 08-06-2018 Hemoglobin A1c/Hemoglobin.total mass fraction (Bld) 7.9 % High 4.5-6.2 [facility] ([place]) Comment on above: Performed By: #### C DORY SMITH, ANEU #### [address] [address] #### A1C #### [address] [address] BMPon 08-06-2018 Calcium mass conc 9.2 mg/dL Normal 8.4-10.2 [facility] ([place]) Comment on above: Performed By: #### B MP, GFR #### [address] [address] Chloride molar conc 105 mmol/L Normal 98-107 [facility] ([place]) Comment on above: Performed By: #### B MP, GFR #### [address] [address] CO2 molar conc 27 mmol/L Normal 23-31 [facility] ([place]) Comment on above: Performed By: #### B MP, GFR #### [address] [address] Creatinine mass conc 1.25 mg/dL High 0.55-1.02 [facility] ([place]) Comment on above: Performed By: #### B MP, GFR #### [address] [address] Electrolyte Balance 11.0 mEq/L Normal [facility] ([place] Comment on above: Performed By: #### B MP, GFR #### [place] [address] Glucose mass conc 70 mg/dL Low 83-110 [facility] ([place]) Comment on above: Performed By: #### B MP, GFR #### [place] [id number] Potassium molar conc 5.0 mmol/L Normal 3.5-5.1 [facility] ([place]) Comment on above: Performed By: #### B MP, GFR #### [place] [id number] Sodium molar conc 143 mmol/L Normal 136-145 [facility] ([place]) Comment on above: Performed By: #### B MP, GFR #### [address] [address] Urea nitrogen mass conc 26 mg/dL High 7-18 [facility] ([place]) Comment on above: Performed By: #### B MP, GFR #### [address] [address] Urea nitrogen/Creatinine mass ratio 21 ratio Normal 7-27 [facility] ([place]) Comment on above: Performed By: #### B MP, GFR #### [address] [address] CBCon 08-06-2018 Erythrocyte distribution width Ratio (RBC) 12.2 % Normal 11.5-14.5 [facility] ([place]) Comment on above: Performed By: #### C DORY SMITH, ANEU #### [address] [address] #### A1C #### [place] [address] Hematocrit Volume Fraction (Bld) 34.6 % Low 37.0-47.0 [facility] ([place]) Comment on above: Performed By: #### C DORY SMITH, ANEU #### [address] [address] #### A1C #### [place] [address] Hemoglobin mass conc (Bld) 11.7 G/dL Low 12.0-16.0 [facility] ([place]) Comment on above: Performed By: #### C DORY SMITH, ANEU #### [address] [address] #### A1C #### [place] [address] MCH Entitic mass (RBC) 30.6 pg Normal 27.0-31.2 [facility] ([place]) Comment on above: Performed By: #### C DORY SMITH, ANEU #### [place] [address] #### A1C #### [place] [address] MCHC mass conc (RBC) 33.7 G/dL Normal 33.0-37.0 [facility] ([place]) Comment on above: Performed By: #### C DORY SMITH, ANEU #### [address] [address] #### A1C #### [place] [address] MCV Entitic volume (RBC) 90.9 fL Normal 80.0-94.0 [facility] ([place] Comment on above: Performed By: #### C BC, ADIFF, ANEU #### [address] [address] #### A1C #### [address] [address] Platelet mean volume Entitic volume (Bld) 8.8 fL Normal 7.4-10.4 [facility] ([place] Comment on above: Performed By: #### C BC, ADIFF, ANEU #### [address] [address] #### A1C #### [address] [address] Platelets #/vol (Bld) 355 10 3/mcL Normal 130-400 [facility] ([place]) Comment on above: Performed By: #### C BC, ADIFF, ANEU #### [address] [address] #### A1C #### [place] [address] RBC #/vol (Bld) 3.81 10 6/mcL Low 4.20-5.40 [facility] ([place]) Comment on above: Performed By: #### C BC, ADIFF, ANEU #### [address] [address] #### A1C #### [place] [address] WBC #/vol (Bld) 9.20 10 3/mcL Normal 4.60-10.80 [facility] ([place]) Comment on above: Performed By: #### C BC, ADIFF, ANEU #### [address] [address] #### A1C #### [place] [address] Vital Signs Date Time Vital Sign Value Performing Clinician Facility 10-02-2024 09:0400 Body height 167.[address] Kameron Caruso MD Work Phone: [facility] 10-02-2024 09:21-0400 Diastolic blood pressure 71 mm[Hg] Dr. Kameron Caruso MD Work Phone: [facility] 10-02-2024 09:21-0400 Heart rate 77 /min Dr. Kameron Caruso MD Work Phone: [facility] 10-02-2024 09:21-0400 Respiratory rate 16 /min Dr. Kameron Caruso MD Work Phone: [facility] 10-02-2024 09:21-0400 Systolic blood pressure 111 mm[Hg] Dr. Kameron Caruso MD Work Phone: [facility] 09-09-2024 09:02-0400 Heart rate 100 /min SILVINO SCHEATZLE DO [facility] 09-09-2024 07:58-0400 Blood Pressure Cuff Size SILVINO SCHEATZLE DO [facility] 09-09-2024 07:58-0400 Blood Pressure Location SILVINO SCHEATZLE DO [facility] 09-09-2024 07:58-0400 Blood Pressure Method SILVINO SCHEATZLE DO [facility] 09-09-2024 07:58-0400 Body temperature 96.8 [degF] SILVINO SCHEATZLE DO [facility] 09-09-2024 07:58-0400 Diastolic Blood Pressure Non-Invasive 78 mm[Hg] SILVINO SCHEATZLE DO [facility] 09-09-2024 07:58-0400 Heart rate 110 /min SILVINO SCHEATZLE DO [facility] 09-09-2024 07:58-0400 Reason For Taking VItal Signs SILVINO SCHEATZLE DO [facility] 09-09-2024 07:58-0400 Respiratory rate 16 /min SILVINO SCHEATZLE DO [facility] [place] 09-09-2024 07:58-0400 Systolic Blood Pressure Non-Invasive 122 mm[Hg] SILVINO CIDATZLE DO [facility] 09-09-2024 02:45-0400 Body temperature 97.7 [degF] SILVINO CIDATZLE DO [facility] 09-09-2024 02:45-0400 Diastolic Blood Pressure Non-Invasive 60 mm[Hg] SILVINO CIDATZLE DO [facility] 09-09-2024 02:45-0400 Heart rate 92 /min SILVINO CIDATZLE DO [facility] [place] 09-09-2024 02:45-0400 Respiratory rate 16 /min SILVINO CIDATZLE DO [facility] 09-09-2024 02:45-0400 Systolic Blood Pressure Non-Invasive 108 mm[Hg] SILVINO CIDATZLE DO [facility] [place] 09-08-2024 22:28-0400 Blood Pressure Cuff Size SILVINO CIDATZLE DO [facility] 09-08-2024 22:28-0400 Blood Pressure Location SILVINO CIDATZLE DO [facility] [place] 09-08-2024 22:28-0400 Blood Pressure Method SILVINO CIDATZLE DO [facility] [place] 09-08-2024 22:28-0400 Body temperature 97.88 [degF] SILVINO CIDATZLE DO [facility] [place] 09-08-2024 22:28-0400 Diastolic Blood Pressure Non-Invasive 54 mm[Hg] SILVINO PALAKATZLE DO [facility] [place] 09-08-2024 22:28-0400 Heart rate 92 /min SILVINO CIDATZLE DO [facility] [place] 09-08-2024 22:28-0400 Reason For Taking VItal Signs SILVINO CIDATZLE DO [facility] [place] 09-08-2024 22:28-0400 Respiratory rate 16 /min SILVINO CIDATZLE DO [facility] 09-08-2024 22:28-0400 Systolic Blood Pressure Non-Invasive 118 mm[Hg] SILVINO CIDATZLE DO [facility] 09-08-2024 18:21-0400 Heart rate 90 /min SILVINO CIDATZLE DO [facility] 09-08-2024 09:08-0400 Blood Pressure Cuff Size SILVINO CIDATZLE DO [facility] 09-08-2024 09:08-0400 Blood Pressure Location SILVINO CIDATZLE DO [facility] 09-08-2024 09:08-0400 Blood Pressure Method SILVINO CIDATZLE DO [facility] 09-08-2024 09:08-0400 Heart rate 114 /min SILVINO CIDATZLE DO [facility] 09-08-2024 09:08-0400 Reason For Taking VItal Signs SILVINO PALAKATZLE DO [facility] 09-04-2024 10:54-0400 Body temperature 96.62 [degF] SILVINO CIDATZLE DO [facility] 09-03-2024 00:26-0400 Body temperature 97.34 [degF] SILVINO CIDATZLE DO [facility] 08-30-2024 22:54-0400 Body temperature 98.06 [degF] SILVINO CIDATZLE DO [facility] 08-26-2024 10:36-0400 Body weight 76 kg SILVINO RADERLE DO [facility] 08-19-2024 06:00-0400 Body weight 75.3 kg SILVINO CIDATZSHITAL DO [facility] 08-15-2024 14:27-0400 Body height 170.2 cm SILVINO PEARL DO [facility] 08-15-2024 14:27-0400 Body weight 75.4 kg SILVINO PEARL DO [facility] 08-15-2024 14:27-0400 Body weight 26.03 kg/m2 SILVINO PEARL DO [facility] 08-15-2024 09:02-0400 Diastolic blood pressure 69 mm[Hg] Prema Ramos MD Work Phone: [facility] 08-15-2024 09:02-0400 Systolic blood pressure 128 mm[Hg] Prema Ramos MD Work Phone: [facility] 08-15-2024 07:28-0400 Heart rate 86 /min Prema Ramos MD Work Phone: [facility] 08-15-2024 07:18-0400 Body temperature 97.3 [degF] Prema Ramos MD Work Phone: [facility] 08-15-2024 07:18-0400 Respiratory rate 23 /min Prema Ramos MD Work Phone: [facility] 08-15-2024 07:18-0400 SaO2% (BldA) [Mass fraction] 95 % Prema Ramos MD Work Phone: [facility] 08-05-2024 08:00-0400 Body height 170.2 cm Prema Ramos MD Work Phone: 7(066)561-037506 [address] 08-05-2024 08:00-0400 Body mass index (BMI) [Ratio] 26.94 kg/m2 Prema Ramos MD Work Phone: 7(654)408-943106 [address] 08-05-2024 08:00-0400 Body weight 78.02 kg Prema Ramos MD Work Phone: 7(540)327-460059 [place] [address] 08-02-2024 13:52-0400 Body temperature 98 [degF] Dr. Kameron Caruso MD Work Phone: 1(829)404-660272 [place] [address] 08-02-2024 13:52-0400 Diastolic blood pressure 91 mm[Hg] Dr. Kameron Caruso MD Work Phone: 1(906)149-688272 [place] [address] 08-02-2024 13:52-0400 Heart rate 109 /min Dr. Kameron Caruso MD Work Phone: 3(318)077-563772 [place] [address] 08-02-2024 13:52-0400 Respiratory rate 16 /min Dr. Kameron Caruso MD Work Phone: 6(228)517-796772 [place] [address] 08-02-2024 13:52-0400 SaO2% (BldA) [Mass fraction] 98 % Dr. Kameron Caruso MD Work Phone: 4(196)633-882272 [place] [address] 08-02-2024 13:52-0400 Systolic blood pressure 153 mm[Hg] Dr. Kameron Caruso MD Work Phone: 1(537)178-515872 [place] [address] 08-02-2024 12:46-0400 Body height 167.[address] Kameron Caruso MD Work Phone: 0(854)369-406872 [place] [address] 08-02-2024 12:46-0400 Body mass index (BMI) [Ratio] 26.6 kg/m2 Dr. Kameron Caruso MD Work Phone: 0(437)192-228072 [place] [address] 08-02-2024 12:46-0400 Body weight [address] Kameron Caruso MD Work Phone: 1(861)227-405172 [place] [address] 06-26-2024 09:39-0500 Body mass index (BMI) [Ratio] 27.25 kg/m2 Emma Canaleshofreddie SERVICE GREETER.TOBACCO STEMMER Work Phone: [facility] 06-26-2024 09:39-0500 Body weight 78.93 kg Emma Glasgow SERVICE GREETER.TOBACCO STEMMER Work Phone: [facility] 06-26-2024 09:39-0500 Diastolic blood pressure 88 mm[Hg] Emma Canaleshof SERVICE GREETER.TOBACCO STEMMER Work Phone: [facility] 06-26-2024 09:39-0500 Heart rate 93 /min Emma Canaleshof SERVICE GREETER.TOBACCO STEMMER Work Phone: [facility] 06-26-2024 09:39-0500 Respiratory rate 16 /min Emma Gonzalesf SERVICE GREETER.TOBACCO STEMMER Work Phone: [facility] 06-26-2024 09:39-0500 SaO2% (BldA) [Mass fraction] 98 % Emma Glasgow SERVICE GREETER.TOBACCO STEMMER Work Phone: [facility] 06-26-2024 09:39-0500 Systolic blood pressure 144 mm[Hg] Emma Canaleshof SERVICE GREETER.TOBACCO STEMMER Work Phone: [facility] [...] index (BMI) [Ratio] 28.35 kg/m2 David Dupree APRN.TOBACCO STEMMER Work Phone: [facility] 10-10-2023 07:31-0400 Body temperature 97.5 [degF] David Dupree SERVICE GREETER.TOBACCO STEMMER Work Phone: [facility] 10-10-2023 07:31-0400 Body weight 82.1 kg David Dupree SERVICE GREETER.TOBACCO STEMMER Work Phone: [facility] 10-10-2023 07:31-0400 Diastolic blood pressure 82 mm[Hg] David Dupree SERVICE GREETER.TOBACCO STEMMER Work Phone: [facility] 10-10-2023 07:31-0400 Heart rate 58 /min David Dupree SERVICE GREETER.TOBACCO STEMMER Work Phone: [facility] 05-28-2024 07:31-0400 Respiratory rate 18 /min David Pakbury SERVICE GREETER.TOBACCO STEMMER Work Phone: [facility] 10-10-2023 07:31-0400 SaO2% (BldA) [Mass fraction] 100 % David Pakbury SERVICE GREETER.TOBACCO STEMMER Work Phone: [facility] 10-10-2023 07:31-0400 Systolic blood pressure 128 mm[Hg] David Pakbury SERVICE GREETER.TOBACCO STEMMER Work Phone: [facility] 09-29-2023 14:14-0400 Body mass index (BMI) [Ratio] 29 kg/m2 Radha Levine SERVICE GREETER.TOBACCO STEMMER Work Phone: [facility] 09-29-2023 14:14-0400 Body temperature 97.81 [degF] Radha Levine SERVICE GREETER.TOBACCO STEMMER Work Phone: [facility] 09-29-2023 14:14-0400 Body weight 84 kg Radha Levine SERVICE GREETER.TOBACCO STEMMER Work Phone: [facility] 09-29-2023 14:14-0400 Diastolic blood pressure 91 mm[Hg] Radha Levine SERVICE GREETER.TOBACCO STEMMER Work Phone: [facility] 09-29-2023 14:14-0400 Heart rate 54 /min Radha Levine SERVICE GREETER.TOBACCO STEMMER Work Phone: [facility] 09-29-2023 14:14-0400 Respiratory rate 18 /min Radha Levine SERVICE GREETER.TOBACCO STEMMER Work Phone: [facility] 09-29-2023 14:14-0400 SaO2% (BldA) [Mass fraction] 99 % Radha Levine SERVICE GREETER.TOBACCO STEMMER Work Phone: [facility] 09-29-2023 14:14-0400 Systolic blood pressure 148 mm[Hg] Radha Levine SERVICE GREETER.TOBACCO STEMMER Work Phone: [facility] [...] Diastolic blood pressure 76 mm[Hg] Emma Tannhof SERVICE GREETER.TOBACCO STEMMER Work Phone: [facility] 03-02-2022 10:52-0400 Heart rate 92 /min Emma Tannhof SERVICE GREETER.TOBACCO STEMMER Work Phone: [facility] 03-02-2022 10:52-0400 Respiratory rate 18 /min Emma Tannhof SERVICE GREETER.TOBACCO STEMMER Work Phone: [facility] 03-02-2022 10:52-0400 Systolic blood pressure 140 mm[Hg] Emma Tannhof SERVICE GREETER.TOBACCO STEMMER Work Phone: [facility] [...] 10:09-0400 BP Diastolic 72 mm[Hg] Santiago Miller [facility] [place] 10-16-2019 10:09-0400 BP Systolic 144 mm[Hg] Santiago Miller [facility] [place] 10-16-2019 10:09-0400 Pulse (Heart Rate) 62 /min Santiago Miller [facility] [place] 10-16-2019 10:09-0400 Pulse Oximetry 98 % Santiago Miller [facility] [place] 10-16-2019 10:09-0400 Respiratory Rate 18 /min [facility] [place] 10-16-2019 09:15-0400 BMI (Body Mass Index) 29.44 kg/m2 Santiago Miller [facility] 10-16-2019 09:15-0400 Body Temperature 97.81 [degF] Santiago Miller [facility] 10-16-2019 09:15-0400 Body weight 85.28 kg Santiago Miller [facility] , [place] 10-16-2019 09:15-0400 Height 170.2 cm Santiago Miller [facility] [place] 01-09-2019 12:06-0400 BP Diastolic 73 mm[Hg] Santiago Miller [facility] [place] 01-09-2019 12:06-0400 BP Systolic 121 mm[Hg] Santiago Miller [facility] [place] 01-09-2019 11:50-0400 Pulse (Heart Rate) 64 /min Santiago Miller [facility] 01-09-2019 11:50-0400 Pulse Oximetry 100 % Santiago Miller [facility] [place] 01-09-2019 11:50-0400 Respiratory Rate 18 /min Santiago Miller [facility] 01-09-2019 10:28-0400 BMI (Body Mass Index) 28.82 kg/m2 Santiago Miller [facility] 01-09-2019 10:28-0400 Body weight 83.46 kg Santiago Miller [facility] [place] 01-09-2019 10:28-0400 Height 170.2 cm Santiago Miller [facility] [place] 01-09-2019 10:27-0400 Body Temperature 97.5 [degF] [facility] [place] Encounters Encounter Date Encounter Type Care Provider Facility Start: 03-25-2025 ambulatory Efewongbe Oleghe OLS Fa cility:[facility] Start: 03-18-2025 ambulatory Efewongbe Oleghe OLS Fa cility:[facility] Start: 03-11-2025 ambulatory Efewongbe Oleghe OLS Fa cility:[facility] Start: 03-04-2025 ambulatory Efewongbe Oleghe OLS Fa cility:[facility] Start: 02-25-2025 ambulatory Efewongbe Oleghe OLS Fa cility:[facility] Start: 02-18-2025 ambulatory Efewongbe Oleghe OLS Fa cility:[facility] Start: 02-18-2025 Safia Martin - [place] Start: 02-11-2025 ambulatory Efewongbe Oleghe OLS Fa cility:[facility] Start: 02-11-2025 Safia Martin - [place] Start: 02-04-2025 ambulatory Efewongbe Oleghe OLS Fa cility:[facility] Start: 02-04-2025 Safia Martin - [place] Start: 01-28-2025 ambulatory Efewongbe Oleghe OLS Fa cility:[facility] Start: 01-28-2025 Safia Martin - [place] Start: 01-21-2025 ambulatory Efewongbe Oleghe OLS Fa cility:[facility] Start: 01-21-2025 Safia Martin - [place] Start: 01-14-2025 ambulatory Efewongbe Oleghe OLS Fa cility:[facility] Start: 01-14-2025 Safia Torres Start: 01-07-2025 End: 01-07-[address] Kameron Caruso MD Work Phone: -[facility] Start: 01-07-2025 End: 01-07-2025 Safia Torres Start: 01-07-2025 End: 01-07-2025 ambulatory Kameron Caruso Facility:[facility] Start: 12-31-2024 End: 12-31-[address] Kameron Caruso MD Work Phone: [facility] Start: 12-31-2024 End: 12-31-2024 Dr. Safia Ruelas MD -[facility] Work Phone: Start: 12-24-2024 ambulatory Kameron Caruso Facilit y:[facility] Start: 12-24-2024 Safia SOMMER L - [place] Start: 12-17-2024 ambulatory Efewongbe Oleghe OLS Fa cility:[facility] Start: 12-17-2024 Safia Martin - [place] Start: 12-10-2024 ambulatory Efewongbe Oleghe OLS Fa cility:[facility] Start: 12-10-2024 Safia SOMMER L - [place] Start: 12-03-2024 ambulatory Efewongbe Oleghe OLS Fa cility:[facility] Start: 12-03-2024 Safia SOMMER L - [place] Start: 11-28-2024 End: 11-28-[address] Kameron Caruso MD Work Phone: [facility] Start: 11-28-2024 End: 11-28-2024 Bret WILKERSON -[facility] Work Phone: Start: 11-26-2024 ambulatory Efewongbe Oleghe OLS Fa cility:[facility] Start: 11-26-2024 Registered Referred Safia Torres Start: 11-26-2024 Safia Martin - [place] Start: 11-25-2024 End: 11-25-[address] Kameron Caruso MD Work Phone: [facility] Start: 11-25-2024 Registered Referred Safia Torres Start: 11-25-2024 End: 11-25-2024 Safia Torres Start: 11-25-2024 End: 11-25-2024 ambulatory Efewongbe Olebonie OLS Facility:[facility] Start: 11-20-2024 End: 11-20-[address] Kameron Caruso MD Work Phone: [facility] Start: 11-20-2024 End: 11-20-2024 Bret Snyder MaurisioC -[facility] Work Phone: Start: 11-19-2024 ambulatory Efewongbe Olebonie OLS Fa cility:[facility] Start: 11-19-2024 Registered Referred Safia Torres Start: 11-19-2024 Safia Torres Start: 11-12-2024 End: 11-12-[address] Kameron Caruso MD Work Phone: -GILMA Torres Start: 11-12-2024 Registered Referred Safia Torres Start: 11-12-2024 End: 11-12-2024 Safia Torres Start: 11-12-2024 End: 11-12-2024 ambulatory Efewongbe Olebonie OLS Facility:[facility] Start: 11-05-2024 ambulatory Efewongbe Enricoe OLS Fa cility:[facility] Start: 11-05-2024 Registered Referred Safia Torres Start: 11-05-2024 Safia Torres Start: 10-30-2024 End: 10-30-[address] Kameron Caruso MD Work Phone: [facility] Start: 10-30-2024 End: 10-30-2024 Patient encounter procedure Bret Snyder TUNNEL KILN REPAIRER- -[facility] Work Phone: Start: 10-30-2024 End: 10-30-2024 Bret Snyder TUNNEL KILN REPAIRER-[facility] Work Phone: Start: 10-29-2024 End: 10-29-[address] Safia Ruelas MD -[facility] Work Phone: Start: 10-29-2024 End: 10-29-[address] Kameron Caruso MD Work Phone: [facility] Start: 10-29-2024 Registered Referred Safia Torres Start: 10-29-2024 End: 10-29-2024 Dr. Safia Ruelas MD -[facility] Work Phone: Start: 10-29-2024 End: 10-29-2024 ambulatory Safia VARGAS Facility:[facility] Start: 10-23-2024 ambulatory Safia Ruelas OLS Fa cility:[facility] Start: 10-23-2024 Registered Referred Safia Torres Start: 10-23-2024 Safia Torres Start: 10-22-2024 End: 10-22-2024 Patient encounter procedure Bret Snyder [facility] Work Phone: Start: 10-22-2024 End: 10-22-[address] Kameron Caruso MD Work Phone: [facility] Start: 10-22-2024 Registered Referred Safia Torres Start: 10-22-2024 End: 10-22-2024 Bret Snyder NP-[facility] Work Phone: Start: 10-15-2024 ambulatory Safia Ruelas OLS Fa cility:[facility] Start: 10-15-2024 Registered Referred Safia Torres Start: 10-15-2024 Safia Torres Start: 10-09-2024 End: 10-09-[address] Kameron Caruso MD Work Phone: [facility] Start: 10-09-2024 End: 10-09-2024 Patient encounter procedure Bret Snyder TUNNEL KILN REPAIRER- -[facility] Work Phone: Start: 10-09-2024 End: 10-09-2024 Bret Snyder [facility] Work Phone: Start: 10-08-2024 ambulatory Efsherry Ruelas OLS Fa cility:[facility] Start: 10-08-2024 Registered Referred Safia Torres Start: 10-08-2024 Safia Torres Start: 10-02-2024 End: 10-02-[address] Mj Benavides MD -[facility] Work Phone: Start: 10-02-2024 End: 10-02-2024 Dr. Mj Benavides MD -[facility] Work Phone: Start: 10-02-2024 End: 10-02-[address] Kameron Caruso MD Work Phone: [facility] Work Phone: Start: 10-01-2024 ambulatory Efewjosé antonio Ruelas OLS Fa cility:[facility] Start: 10-01-2024 Registered Referred Safia Torres Start: 10-01-2024 Safia Torres Start: 09-29-2024 ambulatory Efewongbe Enricoe OLS Fa cility:[facility] Start: 09-29-2024 Registered Referred Safia Torres Start: 09-29-2024 Safia Torres Start: 09-24-2024 ambulatory Safia Ruelas OLS Fa cility:[facility] Start: 09-24-2024 Registered Referred Safia Torres Start: 09-24-2024 Safia Torres Start: 09-17-2024 ambulatory Safia Ruelas OLS Fa cility:[facility] Start: 09-17-2024 Registered Referred Safia Torres Start: 09-17-2024 Safia Torres Start: 09-11-2024 End: 09-11-2024 ambulatory Bret Snyder TUNNEL KILN REPAIRER Facility:[facility] Start: 09-11-2024 End: 09-11-2024 Patient encounter procedure Bret Snyder TUNNEL KILN REPAIRER-C -[facility] Work Phone: Start: 09-11-2024 End: 09-11-2024 Bret Snyder TUNNEL KILN REPAIRER-C -[facility] Work Phone: Start: 09-10-2024 End: 09-10-[address] Safia Ruelas MD -[facility] Work Phone: Start: 09-10-2024 End: 09-10-2024 ambulatory Kameron Caruso Facility:[facility] Start: 09-10-2024 Registered Referred Safia Torres Start: 09-10-2024 End: 09-10-2024 Dr. Safia Ruelas MD -[facility] Work Phone: Start: 08-30-2024 End: 08-30-2024 Telephone encounter Kameron Caruso MD Work Phone: [facility] Comment on above: Tyler Chucho requesti ng verbal agree to follow Start: 08-15-2024 End: 09-09-2024 Evaluation and management of inpatient SILVINO CIDBEULAH DO [facility] Start: 08-09-2024 Evaluation and manag ement of inpatient KAMERON CARUSO Facility:[facility] Start: 08-06-2024 Evaluation and manag ement of inpatient [facility] Start: 08-02-2024 End: 08-02-2024 ambulatory [facility] Facility:[facility] Start: 08-02-2024 End: 08-15-2024 Evaluation and management [...] encounter Kameron Caruso MD Work Phone: [facility] Comment on above: medication not on cu rrent med list Start: 06-26-2024 End: 06-26-2024 Office outpatient visit 25 minutes Emma Glasgow APRN.CNP Work Phone: [facility] [place] Comment on above: Atrial fibrillation, unspecified type (HCC) (Primary Dx); Hypothyroidism, unspecified type; Need for malaria prophylaxis Start: 06-26-2024 End: 06-26-2024 ambulatory [facility] Facility:[facility] Start: 06-25-2024 ambulatory KAMERON CARUSO Facil ity:[facility] Start: 06-24-2024 End: 06-24-2024 Telephone encounter Kameron Caruso MD Work Phone: [facility] [place] Comment on above: Patient Update Start: 06-11-2024 End: 06-11-2024 Telephone encounter Kameron Caruso MD Work Phone: [facility] [place] Comment on above: Results Start: 06-11-2024 End: 06-11-2024 ambulatory [facility] Facility:[facility] Start: 06-10-2024 End: 06-11-2024 Telephone encounter Kameron Caruso MD Work Phone: [facility] [place] Comment on above: Medication Problem Start: 05-31-2024 End: 05-31-2024 ambulatory [facility] Facility:[facility] Start: 05-31-2024 End: 05-31-2024 Patient encounter procedure Kameron Caruso MD Work Phone: [facility] Comment on above: Essential hypertensi [...] unspecified type (HCC) Start: 05-23-2024 End: 05-23-2024 [facility] Facility:[facility] Start: 11-28-2023 End: 11-28-2023 [facility] Facility:[facility] Start: 11-28-2023 End: 11-28-2023 Patient encounter procedure Kameron Caruso MD Work Phone: [facility] Comment on above: 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, unspecified CKD stage, unspecified whether jail insulin use (HCC) (Primary Dx); Essential hypertension, benign; Chronic kidney disease, stage 3a (HCC); Hyperlipidemia, unspecified hyperlipidemia type; Hypothyroidism, unspecified type; Edema of left lower leg; Memory loss; Type 2 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, without long-term current use of insulin (HCC) Start: 11-27-2023 End: 11-27-2023 [facility] Facility:[facility] Start: 10-10-2023 End: 10-10-2023 ambulatory KAMERON CARUSO Facility:[facility] Start: 10-10-2023 End: 10-10-2023 Office outpatient visit 25 minutes David Joon SERVICE GREETER.TOBACCO STEMMER Work Phone: [facility] Comment on above: Rash (Primary Dx) Start: 09-29-2023 End: 09-29-2023 ambulatory KAMERON CARUSO Facility:[facility] Start: 09-29-2023 End: 09-29-2023 Patient encounter procedure Radha Levine SERVICE GREETER.TOBACCO STEMMER Work Phone: [facility] Comment on above: Allergic contact lexi matitis due to plant (Primary Dx) Start: 09-19-2023 Refill Kameron nixon MD Work Phone: [facility] [place] Comment on above: Refill Request Start: 04-08-2023 Telephone encounter Kameron bucio MD Work Phone: [address] [place] [address] Comment on above: Refill Request Start: 11-25-2022 Telephone encounter Kameron bucio MD Work Phone: [facility] Comment on above: Patient Question Start: 05-27-2022 End: 05-27-2022 Patient encounter procedure Kameron Caruso MD Work Phone: [facility] [place] Comment on above: Essential hypertensi on, benign (Primary Dx); Hypothyroidism, unspecified type; Type 2 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, without long-term current use of insulin (HCC); Hyperlipidemia, unspecified hyperlipidemia type; Chronic kidney disease, stage 3a (HCC); Edema of left lower leg; Wellness examination Start: 05-27-2022 End: 05-27-2022 Patient encounter status Kameron Caruso MD Work Phone: [facility] Start: 04-11-2022 Refill Kameron nixon MD Work Phone: [facility] Comment on above: Refill Request Start: 03-02-2022 ambulatory Kameron nixon MD Work Phone: [facility] [place] Comment on above: Back Pain Start: 03-02-2022 End: 03-02-2022 Patient encounter procedure Emma Glasgow SERVICE GREETER.TOBACCO STEMMER Work Phone: [facility] Comment on above: Acute midline low ba ck pain without sciatica (Primary Dx) Start: 01-11-2022 Refill Mj ORTIZ RN.TOBACCO STEMMER Work Phone: [facility] [place] Comment on above: Refill Request Start: 01-11-2022 Refill Kameron nixon MD Work Phone: [facility] Comment on above: Refill Request Start: 12-16-2021 Telephone encounter Kameron bucio MD Work Phone: [facility] Comment on above: Diabetic Testing Sup plies Start: 11-23-2021 End: 11-23-2021 Refill Kameron Caruso MD Work Phone: [facility] [place] Comment on above: 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, unspecified CKD stage, unspecified whether jail insulin use (HCC) (Primary Dx); Essential hypertension, benign; Hyperlipidemia, unspecified hyperlipidemia type; Stage 3b chronic kidney disease (HCC); Hypothyroidism, unspecified type; Memory loss Start: 10-14-2021 Refill Kameron nixon MD Work Phone: [facility] Comment on above: Refill Request Start: 09-27-2021 Telephone encounter Kameron bucio MD Work Phone: [facility] [place] Comment on above: information requeste d/rxs needed Start: 09-13-2021 Telephone encounter Kameron bucio MD Work Phone: [facility] Comment on above: Patient Question; Me [...] 08-15-2024 Assay of magnesium Abram rin Nadine SERVICE GREETER-[employer]MER Work Phone: Start: 08-15-2024 Glucose measurement, blood Christos Gibson MD Work Phone: Start: 08-14-2024 Glucose measurement, blood Christos Gibson MD Work Phone: Start: 08-14-2024 Glucose measurement, blood Christos Gibson MD Work Phone: Start: 08-14-2024 Glucose measurement, blood Christos Gibson MD Work Phone: Start: 08-14-2024 Assay of magnesium Abdoule rin M Nadine SERVICE GREETER-[employer]MER Work Phone: Start: 08-13-2024 Glucose measurement, blood Christos Gibson MD Work Phone: Start: 08-13-2024 Glucose measurement, blood Christos Gibson MD Work Phone: Start: 08-13-2024 Glucose measurement, blood Christos Gibson MD Work Phone: Start: 08-13-2024 Glucose measurement, blood Felicity Castellano MD Work Phone: Start: 08-13-2024 Assay of magnesium Nase rin M Nadine SERVICE GREETER[employer]MER Work Phone: Start: 08-13-2024 Glucose measurement, blood Felicity Castellano MD Work Phone: Start: 08-12-2024 Glucose measurement, blood Felicity Castellano MD Work Phone: Start: 08-12-2024 Glucose measurement, blood Felicity Castellano MD Work Phone: Start: 08-12-2024 Glucose measurement, blood Felicity Castellano MD Work Phone: Start: 08-12-2024 Assay of magnesium Nase rin M Nadine SERVICE GREETER-[employer]MER Work Phone: Start: 08-12-2024 Glucose measurement, blood Felicity Castellano MD Work Phone: Start: 08-11-2024 Glucose measurement, blood Felicity Castellano MD Work Phone: Start: 08-11-2024 Glucose measurement, blood Felicity Castellano MD Work Phone: Start: 08-11-2024 Glucose measurement, blood Felicity Castellano MD Work Phone: Start: 08-11-2024 Assay of magnesium Nase rin M Nadine SERVICE GREETER-[employer]MER Work Phone: Start: 08-10-2024 Glucose measurement, blood Felicity Castellano MD Work Phone: Start: 08-10-2024 Glucose measurement, blood Felicity Castellano MD Work Phone: Start: 08-10-2024 End: 08-10-2024 Culture bacterial blood aerobic w/id isolates Radha Gr SERVICE GREETER-TOBACCO STEMMER Work Phone: Start: 08-10-2024 Glucose measurement, blood Felicity Castellano MD Work Phone: Start: 08-10-2024 End: 08-10-2024 Glucose measurement, blood Felicity Castellano MD Work Phone: Start: 08-10-2024 Glucose measurement, blood Felicity Castellano MD Work Phone: Start: 08-10-2024 Assay of magnesium Abram Schulteameh SERVICE GREETER-[employer]BAC[employer] STEMMER Work Phone: Start: 08-10-2024 Glucose measurement, blood [...] Start: 08-09-2024 Assay of magnesium Abram Mccoy SERVICE GREETER-[employer]BACCO STEMMER Work Phone: Start: 08-09-2024 Glucose measurement, blood Felicity Castellano MD Work Phone: Start: 08-08-2024 Glucose measurement, blood Felicity Castellano MD Work Phone: Start: 08-08-2024 Culture bct isol&prs mptv id isolate ea urine Bella Cardenas SERVICE GREETER-[employer] STEMMER Work Phone: Start: 08-08-2024 EXTRA MICRO Bella matthews SERVICE GREETER-TOBACCO STEMMER Work Phone: Start: 08-08-2024 URINALYSIS REFLEX TO CULTURE Bella Cardenas SERVICE GREETER-TOBACCO STEMMER Work Phone: Start: 08-08-2024 Ct head/brain w/o co ntrast material Bella Cardenas SERVICE GREETER-TOBACCO STEMMER Work Phone: Start: 08-08-2024 Glucose measurement, blood Felicity Castellano MD Work Phone: Start: 08-08-2024 End: 08-08-2024 Glucose measurement, blood Felicity Castellano MD Work Phone: Start: 08-08-2024 Assay of magnesium Abram Mccoy SERVICE GREETER-[employer]BAC[employer]MER Work Phone: Start: 08-07-2024 Glucose measurement, blood Felicity Castellano MD Work Phone: Start: 08-07-2024 Glucose measurement, blood Felicity Castellano MD Work Phone: Start: 08-07-2024 Glucose measurement, blood Felicity Castellano MD Work Phone: Start: 08-07-2024 Glucose measurement, blood Felicity Castellano MD Work Phone: Start: 08-06-2024 Glucose measurement, blood Felicity Castellano MD Work Phone: Start: 08-06-2024 Assay of magnesium Abram Mccoy SERVICE GREETER-[employer]MER Work Phone: Start: 08-06-2024 Glucose measurement, blood Felicity Castellano MD Work Phone: Start: 08-06-2024 Glucose measurement, blood Felicity Castellano MD Work Phone: Start: 08-06-2024 Radiologic exam swal low function contrast study Shanna Russ SERVICE GREETER-[employer]BAC[employer] STEMMER Work Phone: Start: 08-06-2024 SPEECH MODIFIED [facility] SWALLOW Shanna Russ SERVICE GREETER-TOBACCO STEMMER Work Phone: Start: 08-06-2024 Glucose measurement, blood Felicity Castellano MD Work Phone: Start: 08-05-2024 Glucose measurement, blood Felicity Castellano MD Work Phone: Start: 08-05-2024 Assay of magnesium Nase rin Jaiden Nadine SERVICE GREETER-[employer]BAC[employer]MER Work Phone: Start: 08-05-2024 Glucose measurement, blood Felicity Castellano MD Work Phone: Start: 08-05-2024 Glucose measurement, blood Felicity Castellnao MD Work Phone: Start: 08-05-2024 [facility]mode compl spec&colr d Taran Traore SERVICE GREETER-TOBACCO STEMMER Work Phone: Start: 08-05-2024 Glucose measurement, blood Felicity Castellano MD Work Phone: Start: 08-05-2024 Assay of magnesium Nase rin Jaiden Nadine SERVICE GREETER-[employer]BAC[employer]MER Work Phone: Start: 08-05-2024 Glucose measurement, blood [...] Assay of magnesium Nase rin M Nadine SERVICE GREETER[employer]MER Work Phone: Start: 08-04-2024 Glucose measurement, blood Richard Mejia MD Work Phone: Start: 08-03-2024 Ct head/brain w/o co ntrast material Shaila Méndez PA-C Start: 08-03-2024 Sodium serum plasma or whole blood Shanna Denise MD Work Phone: Start: 08-03-2024 Glucose measurement, blood Richard Mejia MD Work Phone: Start: 08-03-2024 Radiologic exam abdo men 1 view Balbir Jaiden Nadine SERVICE GREETER-[employer]BAC[employer]MER Work Phone: Start: 08-03-2024 Glucose measurement, blood [...] brain stem w/o contrast material Taran Traore SERVICE GREETER-TOBACCO STEMMER Work Phone: Start: 08-03-2024 ABORH TYPE RECONFIRMATION Cindy CORDOVA Work Phone: Start: 08-03-2024 Assay of magnesium Abram scott Jaiden Cardenash SERVICE GREETER-TOBACCO STEMMER Work Phone: Start: 08-02-2024 Glucose measurement, blood [...] #### [facility] ([facility]) [address] [place] [address] Start: 08-02-2024 EXTRA MICRO Taran Traore SERVICE GREETER-TOBACCO STEMMER Work Phone: Start: 08-02-2024 Hemoglobin glycosylated a1c Balbir Mccoy SERVICE GREETER-[employer]BAC[employer] STEMMER Work Phone: Start: 08-02-2024 Hepatic function panel Balbir Mccoy SERVICE GREETER-TOBAC[employer] STEMMER Work Phone: Start: 08-02-2024 Iadna s aureus ampli fied probe tq Balbir Cardenash SERVICE GREETER-TOBAC[employer] STEMMER Work Phone: Start: 08-02-2024 URINALYSIS REFLEX TO CULTURE Taran Traore SERVICE GREETER-TOBACCO STEMMER Work Phone: Start: 08-02-2024 Urnls dip stick/tabl et reagent auto microscopy Taran Traore SERVICE GREETER-TOBACCO STEMMER Work Phone: Start: 08-02-2024 SARS-CoV-2, Influenz a [...] Center Start: 08-02-2025 Thyroid stimulating hormone measurement [facility] Start: 06-26-2025 Annual PCP Team Chronic [...] [facility] Start: 03-04-2025 -[facility] - Melissa Start: 02-25-2025 -[facility] - Melissa Start: 02-02-2025 [facility]oglobin A[facility]c [facility] Start: 01-13-2025 Influenza vaccination [facility] Start: 01-03-2025 Glaucoma screening Dilated Retinal Exam [facility] Start: 12-24-2024 End: 12-24-2024 Patient encounter procedure 12/24/2024 9:20 AM EDT Office Visit Family [facility] [address] [place] [address] Kameron Caruso MD [address] [place], [place] [id number] 6 month follow up Family [facility] Comment on above: 6 month follow up Start: 11-28-2024 End: 02-27-2025 Comprehensive metabolic 2000 panel - Serum or Plasma COMPREHENSIVE METABOLIC PANEL Lab Routine Essential hypertension, benign Chronic kidney disease, stage 3a (HCC) Hyperlipidemia, unspecified hyperlipidemia type Expected: 11/28/2024 (Approximate), Expires: 02/27/2025 [facility] Work Phone: Comment on above: [...] Center Start: 11-20-2024 Hemoglobin A1c measurement HbA1C [facility] Start: 11-11-2024 Influenza vaccination Influenza Vaccine (#1) [facility] Comment on above: Postponed from 01/14/2024 (Declined at t his time) Start: 10-08-2024 End: 10-08-2024 ambulatory [facility] Start: 10-02-2024 Evaluation of diagnostic study results 12 Lead EKG performed by B[facility] Start: 08-02-2024 [facility] Start: 08-02-2024 SARS-CoV-2, Influenza & RSV (PCR) SARS-CoV-2, Influenza & RSV (PCR) [facility] Start: 08-02-2024 End: 08-02-2024 [facility] Start: 08-02-2024 Electrocardiographic procedure [facility] Start: 08-02-2024 Oxygen therapy [facility] Start: 07-24-2024 End: 10-23-2024 Thyrotropin [Units/volume] in Serum or Plasma THYROID STIMULATING HORMONE Lab Routine Hypothyroidism, unspecified type Expected: 07/24/2024, Expires: 10/23/2024 [facility] Work Phone: Comment on above: Expected: 07/24/2024, Expires: Start: 07-24-2024 End: 10-23-2024 Thyroxine (T4) free [Mass/volume] in Serum or Plasma T4 FREE/FREE THYROXINE Lab Routine Hypothyroidism, unspecified type Expected: 07/24/2024, Expires: 10/23/2024 [facility] Comment on above: Expected: 07/24/2024, Expires: Start: 06-25-2024 End: 06-25-2024 Patient encounter procedure 06/25/2024 9:40 AM EST Office Visit Family [facility] [address] [place], [place] [id number] Kameron Caruso MD [address] [place], [place] [id number] 1 mo f/u, new dx afib. [facility] [place] Comment on above: 1 mo f/u, new dx afib. Start: 06-11-2024 End: 06-11-2024 Patient encounter procedure 06/11/2024 8:50 AM EST Office Visit Cardiology [address] [place], [place] [id number] Atrial fibrillation, unspecified type (HCC) [I48.91] Cardiology [...] kidney disease, unspecified CKD stage, unspecified whether jail insulin use (HCC) Essential hypertension, benign Chronic kidney disease, stage 3a (HCC) Hyperlipidemia, unspecified hyperlipidemia type Expected: 05/30/2024 (Approximate), Expires: 08/29/2024 [facility] Work Phone: Comment on above: [...] kidney disease, unspecified CKD stage, unspecified whether jail insulin use (HCC) Expected: 05/30/2024 (Approximate), Expires: [...] kidney disease, unspecified CKD stage, unspecified whether jail insulin use (HCC) Essential hypertension, benign Hyperlipidemia, unspecified hyperlipidemia type Expected: 05/30/2024 (Approximate), Expires: 08/29/2024 [facility] Comment on above: Expected: 05/30/2024 (Approximate), Expi res: 08/29/2024 Start: 05-30-2024 End: 08-29-2024 Microalbumin/Creatinine [Mass Ratio] in Urine ALBUMIN/CREATININE RATIO, URINE Lab Routine Type 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, unspecified CKD stage, 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 (HCC) Expected: 05/30/2024 (Approximate), Expires: [...] EST Office Visit Family [facility] [address] [place] [id number] Kameron Caruso MD [address] [place] [id number] 6 mo f/u Family [facility] Comment on above: 6 mo f/u Start: 05-29-2024 Hemoglobin A1c measurement HbA1C [facility] Start: 05-16-2024 Creatinine measurement Serum Creatinine [facility] Start: 05-16-2024 Hepatitis B screening Urine Albumin:Creatinine Ratio [facility] Start: 05-16-2024 Hepatitis B surface antibody level LDL Cholesterol [facility] Start: 05-15-2024 Advance Directive Discussion Advance Directive Discussion [facility] Start: 01-14-2024 Influenza vaccination [facility] Start: 01-14-2024 [facility] Start: 01-04-2024 Glaucoma screening Dilated Retinal Exam [facility] Start: 01-04-2024 Hepatitis C antibody, confirmatory test Dilated Retinal Exam [facility] Start: 11-28-2023 End: 11-28-2023 Patient encounter procedure 11/28/2023 9:40 AM EDT Office Visit Family [facility] [address] [place] [id number] Kameron Caruso MD [address] [place] [address] 6 mo follow up Family [place] [facility] [...] 11-14-2023 Hemoglobin A1c [facility] Start: 05-27-2023 ANNUAL PCP TEAM [...] ( season) [facility] Start: 01-13-2023 Influenza vaccination [facility] Start: 12-27-2022 Hepatitis C antibody, confirmatory test DILATED RETINAL EXAM [facility] Start: 11-24-2022 End: 01-24-2023 CBC panel - Blood by Automated count CBC Lab Routine Essential hypertension, benign Hypothyroidism, unspecified type Expected: 11/24/2022 (Approximate), Expires: 01/24/2023 [facility] Work Phone: Comment on above: Expected: 11/24/2022 (Approximate), Expi res: 01/24/2023 Start: 11-24-2022 End: 01-24-2023 Comprehensive metabolic 2000 panel - Serum or Plasma COMP METABOLIC PANEL Lab Routine Essential hypertension, benign Type 2 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, without long-term current use of insulin (HCC) Hyperlipidemia, unspecified hyperlipidemia type Expected: 11/24/2022 (Approximate), Expires: 01/24/2023 [facility] Work Phone: Comment on above: Expected: 11/24/2022 (Approximate), Expi res: 01/24/2023 Start: 11-24-2022 End: 01-24-2023 Hemoglobin A1c in Blood HGB A1C Lab Routine Type 2 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, without long-term current use of insulin (HCC) Expected: 11/24/2022 (Approximate), Expires: 01/24/2023 [facility] Work Phone: Comment on above: Expected: 11/24/2022 (Approximate), Expi res: 01/24/2023 Start: 11-24-2022 End: 01-24-2023 Lipid 1996 panel - Serum or Plasma LIPID PANEL BASIC Lab Routine Essential hypertension, benign Type 2 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, without long-term current use of insulin (HCC) Hyperlipidemia, unspecified hyperlipidemia type Expected: 11/24/2022 (Approximate), Expires: 01/24/2023 [facility] Work Phone: Comment on above: Expected: 11/24/2022 (Approximate), Expi res: 01/24/2023 Start: 11-24-2022 End: 01-24-2023 Thyrotropin [Units/volume] in Serum or Plasma TSH BLD Lab Routine Hypothyroidism, unspecified type Expected: 11/24/2022 (Approximate), Expires: 01/24/2023 [facility] Work Phone: Comment on above: Expected: 11/24/2022 (Approximate), Expi res: 01/24/2023 Start: 11-23-2022 3 comp foot exam completed DIABETIC FOOT EXAM [facility] Start: 11-23-2022 ANNUAL PCP TEAM CHRONIC DISEASE VISIT ANNUAL PCP TEAM CHRONIC DISEASE VISIT [facility] Start: 11-23-2022 Diabetic foot examination Diabetic Foot Exam [facility] Start: 11-20-2022 Hepatitis B [...] disease (HCC) Expected: 05/26/2022 (Approximate), Expires: 07/26/2022 [facility] Work Phone: Comment on above: Expected: 05/26/2022 (Approximate), Expi res: 07/26/2022 Start: 05-26-2022 End: 07-26-2022 Comprehensive metabolic 2000 panel - Serum or Plasma COMP METABOLIC PANEL Lab Routine Type 2 diabetes mellitus with diabetic chronic kidney disease, unspecified CKD stage, 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 (HCC) Essential hypertension, benign Hyperlipidemia, unspecified hyperlipidemia type Stage 3b chronic kidney disease (HCC) Expected: 05/26/2022 (Approximate), Expires: 07/26/2022 [facility] Work Phone: Comment on above: Expected: 05/26/2022 (Approximate), Expi res: 07/26/2022 Start: 05-26-2022 End: 07-26-2022 Hemoglobin A1c in Blood HGB A1C Lab Routine Type 2 diabetes mellitus with diabetic chronic kidney disease, unspecified CKD stage, unspecified whether jail insulin use (HCC) Expected: 05/26/2022 (Approximate), Expires: 07/26/2022 [facility] Work Phone: Comment on above: Expected: 05/26/2022 (Approximate), Expi res: 07/26/2022 Start: 05-26-2022 End: 07-26-2022 Lipid 1996 panel - Serum or Plasma LIPID PANEL BASIC Lab Routine Essential hypertension, benign Hyperlipidemia, unspecified hyperlipidemia type Expected: 05/26/2022 (Approximate), Expires: 07/26/2022 [facility] Work Phone: Comment on above: Expected: 05/26/2022 (Approximate), Expi res: 07/26/2022 Start: 05-26-2022 End: 07-26-2022 Thyrotropin [Units/volume] in Serum or Plasma TSH BLD Lab Routine Hypothyroidism, unspecified type Expected: 05/26/2022 (Approximate), Expires: 07/26/2022 [facility] Work Phone: Comment on above: [...] 11-06-2021 Screening for malignant neoplasm of breast [facility] Start: 11-05-2021 3 comp foot exam completed DIABETIC FOOT EXAM [facility] Start: 11-05-2021 Adult depression screening assessment DEPRESSION SCREENING [facility] Start: 11-04-2021 Hepatitis B screening URINE ALBUMIN:CREATININE RATIO [facility] Start: 10-15-2021 Hepa vaccine adult dose for intramuscular use HEPATITIS A VACCINE ADULT IM Immunization/Injection Routine Need for vaccination Expected: 10/15/2021 [facility] Work Phone: Comment on above: Expected: 10/15/2021 Start: 10-15-2021 Tdap vaccine 7 yrs/> im TDAP VACCINE AGE 7+ IM Immunization/Injection Routine Need for vaccination Expected: 10/15/2021 [facility] Work Phone: Comment on above: [...] [facility] Start: 12-19-2019 Pneumococcal vaccination [facility] Start: 12-19-2019 Pneumococcal Vaccine: 65+ (2 - PPSV23 or PCV20) Pneumococcal Vaccine: 65+ (2 - PPSV23 or PCV20) [facility] Start: 12-19-2019 PNEUMOCOCCAL: 65+ (2 - PPSV23 or PCV20) PNEUMOCOCCAL: 65+ (2 - PPSV23 or PCV20) [facility] Start: 11-08-2019 Screening for malignant neoplasm of colon [facility] Start: 10-26-2019 [facility] Start: 01-13-2019 Influenza vaccination Flu vaccine (#1) [place], [place] Start: 12-23-2018 Annual Wellness Visit (AWV) Annual Wellness Visit (AWV) [place] Start: 2009 DEXA (modify frequency per FRAX score) DEXA (modify frequency per FRAX score) [place] Start: 2009 Pneumococcal 65+ years Vaccine (1 of 1 - PPSV23) Pneumococcal 65+ years Vaccine (1 of 1 - PPSV23) [place] Start: 2009 Pneumococcal 65+ years Vaccine (1 of 2 - PCV13) Pneumococcal 65+ years Vaccine (1 of 2 - PCV13) [place] Start: 10-26-2007 Annual Wellness Visit (AWV) Annual Wellness Visit (AWV) [place] Start: 2004 Hepatitis B Vaccine (1 of 3 - Risk 3-dose series) Hepatitis B Vaccine (1 of 3 - Risk 3-dose series) [facility] Start: 2004 RSV Vaccine (1 - 1-dose 60+ series) RSV Vaccine (1 - 1-dose 60+ series) [facility] Start: 10-26-1999 Screening for osteoporosis DEXA (modify frequency per FRAX score) [place] Start: 1994 Breast cancer screen Breast cancer screen [place] Start: 1994 Colon cancer screen colonoscopy Colon cancer screen colonoscopy [place] Start: 1994 Screening for malignant neoplasm of breast Breast cancer [place] Start: 1994 Screening for malignant neoplasm of colon Colon cancer screen colonoscopy [place] Start: 1994 Shingles Vaccine (1 of 2) Shingles Vaccine (1 of 2) [place] Start: 1984 Lipid screen Lipid screen [place] Start: 1965 Screening for malignant neoplasm of cervix [facility] Start: 10-26-1963 DTaP/Tdap/Td vaccine (1 - Tdap) DTaP/Tdap/Td vaccine (1 - Tdap) [place] Start: 10-26-1963 Third diphtheria, tetanus and acellular pertussis (DTaP) vaccination [facility] Start: 10-26-1963 Urine microalbumin profile [facility] Start: 1962 BP CONTROLLED (<130/80) BP CONTROLLED (<130/80) [facility] Start: 1962 HEPATITIS C SCREENING HEPATITIS C SCREENING [facility] Start: 1954 Lipid panel Lipid screen [place] Start: 1944 Creatinine measurement Creatinine monitoring [place], [place] Start: 1944 Creatinine monitoring Creatinine monitoring [place], [place] Start: 1944 Hepatitis C screen Hepatitis C screen [place] Start: 1944 Hepatitis C screening [facility] Start: 1944 Potassium monitoring Potassium monitoring [place] Start: 1944 Screening for osteoporosis [facility] Start: 1944 Tetanus vaccination [facility] End: 01-09-2019 Blood glucose - POCT Blood glucose - POCT Point of Care Testing Routine One Time for 1 Occurrences starting 01/09/2019 until 01/09/2019 [place] Comment on above: One Time for 1 Occurrences starting 12/14 until 01/09/2019 ECG COMPLETE [facility] Comment on above: Ordered: 05/31/2024 End: 05-31-2025 Echocardiography ECHO Cardiology Routine Atrial fibrillation, unspecified type (HCC) 1 Occurrences starting 05/31/2024 until 05/31/2025 [facility] Comment on above: 1 Occurrences starting 05/31/2024 until 05/31/2025 Patient referral [facility] Work Phone: End: 01-09-2019 Pulse Oximetry Spot Check Pulse Oximetry Spot Check Respiratory Care Routine One Time for 1 Occurrences starting 01/09/2019 until 01/09/2019 [place] Comment on above: One Time for 1 Occurrences starting 12/14 until 01/09/2019 End: 08-02-2024 PV FLUOROSCOPY OR U [facility] End: 08-02-2024 Standard ECG [facility] Immunization [facility] Immunization Notes Care Provider Fa sonya 07-23-2020 SARS-CoV-2 (COVID-19 ) Ad26 vaccine, recombinant SILVINO PEARL DO Tyler Garcia Comment on above: Result Comment: 2024: [id number] 02-27-2020 influenza, high dose seasonal, preservative-free Kameron Caruso MD Work Phone: [facility] 02-27-2020 influenza virus vaccine, unspecified formulation Kameron Caruso MD Work Phone: [facility] 10-24-2019 pneumococcal conjuga te vaccine, 13 valent Kameron Caruso MD Work Phone: [facility] 10-24-2019 zoster vaccine recombinant Kameron Caruso MD Work Phone: [facility] 07-25-2019 influenza virus vaccine, unspecified formulation SILVINO PEARL DO [facility] 07-25-2019 influenza, seasonal, injectable Kameron Caruso MD Work Phone: [facility] 07-25-2019 zoster vaccine recombinant Kameron Caruso MD Work Phone: [facility] 04-13-2015 influenza virus vaccine, unspecified formulation SILVINO PEARL DO [facility] 05-01-2014 influenza virus vaccine, unspecified formulation SILVINO PEARL DO [facility] 05-01-2014 influenza, high dose seasonal, preservative-free Kameron Caruso MD Work Phone: [facility] 02-22-2012 influenza virus vaccine, unspecified formulation Kameron Caruso MD Work Phone: [facility] Work Phone: 03-19-2007 influenza virus vaccine, unspecified formulation Kameron Caruso MD Work Phone: [facility] Work Phone: Payers Date Payer Category Payer Medicare [id number] 2024 Unknown [id number] 2024 Self-pay 2018 Medicare [employer]-MEDICA RE ADVANTAGE [employer]MEDICARE ADVANTAGE xxxxxxxxxxx 2018-Present [phone] [address] [place] [address] xxxxxxxxxxx [id number] 2018 Unknown [id number] 2013 Medicare [facility] [place] [id number] 2013-Present [phone] [address] [place] [address] O [id number] [id number] .7.3.656047.315 2013 Medicare [id number]. 1.13.159.2 .7.3.083769.315 2013 Medicare (Managed Care) 1.2. [id number] .7.9.527880.69517.315 2013 Medicare [id number] 1944 Unknown [id number] 2.16.840.1.452646.3.579.2 .627 1944 Unknown [id number] 2.16.840.1.761869.3.579.2 .732 1944 Unknown [id number] 2.16.840.1.434323.3.579.2 .594 1944 Unknown [id number] 2.16.840.1.756485.3.579.2 .594 1944 Unknown [id number] 2.16.840.1.613355.3.579.2 .627 Unknown [id number] 2.16.840.1.051116.3.579.2 .462 Unknown [id number] 2.16.840.1.164119.3.579.2 .462 Unknown [id number] 2.16.840.1.483445.3.579.2 .462 Unknown [id number] 2.16.840.1.965939.3.579.2 .462 Unknown [id number] 2.16.840.1.156021.3.579.2 .462 Unknown [id number] 2.16.840.1.453107.3.579.2 .462 Unknown [id number] 2.16840.1.284721.3.579.2 .462 Unknown [id number] 2.16840.1.713305.3.579.2 .462 Unknown [id number] 2.16.840.1.145146.3.579.2 .462 Unknown [id number] 2.840.1.077088.3.579.2 .462 Unknown [id number] 2.840.1.339102.3.579.2 .462 Unknown [id number] 2.840.1.659493.3.579.2 .462 Unknown [id number] 2.840.1.465594.3.579.2 .462 Unknown [id number] 2.840.1.972070.3.579.2 .462 Unknown [id number] 2.840.1.292318.3.579.2 .462 Unknown [id number] 2.840.1.353914.3.579.2 .462 Unknown [id number] 2.840.1.041839.3.579.2 .462 Unknown [id number] 2.840.1.647333.3.579.2 .462 Unknown [id number] 2.840.1.566183.3.579.2 .462 Unknown [id number] 2.840.1.188323.3.579.2 .462 Unknown [id number] 2.840.1.538067.3.579.2 .462 Unknown [id number] 2.840.1.677514.3.579.2 .462 Unknown [id number] 2.840.1.581536.3.579.2 .462 Unknown [id number] 2.840.1.449372.3.579.2 .462 Unknown [id number] 2.840.1.582271.3.579.2 .462 Unknown [id number] 2..840.1.357478.3.579.2 .462 Unknown [id number] 2.16.840.1.106803.3.579.2 .462 Unknown [id number] 2.16.840.1.766977.3.579.2 .462 Unknown [id number] 2.840.1.082982.3.579.2 .462 Unknown [id number] 2.840.1.035375.3.579.2 .462 Unknown [id number] 2.840.1.840959.3.579.2 .462 Unknown [id number] 2.840.1.826046.3.579.2 .462 Unknown [id number] 2.840.1.578560.3.579.2 .462 Unknown [id number] 2.840.1.904291.3.579.2 .462 Unknown [id number] 2.840.1.821628.3.579.2 .462 Unknown [id number] 2.840.1.250194.3.579.2 .462 Unknown [id number] 2.840.1.646312.3.579.2 .462 Unknown [id number] 2.840.1.938641.3.579.2 .462 Unknown [id number] 2.840.1.183245.3.579.2 .462 Unknown [id number] 2.840.1.720089.3.579.2 .462 Unknown [id number] 2.840.1.899919.3.579.2 .462 Unknown [id number] 2.840.1.859983.3.579.2 .462 Unknown [id number] 2.840.1.283673.3.579.2 .462 Social History Date Type Detail Facility Start: 01-09-2019 End: 08-02-2024 Tobacco smoking status NHIS Never smoker [facility] Start: 01-09-2019 End: 11-25-2022 Alcohol intake Never [facility] Work Phone: Start: 12-24-2018 [facility] Start: 1945 Sex Assigned At Not on file [facility] [employer] [facility] Start: 10-16-2019 Alcohol intake Lifetime non-d hortencia (finding) [place] Exposure to SARS-CoV -2 (event) Unable to assess [facility] [place] Start: 05-18-2021 End: 06-26-2024 Alcohol intake [...] End: 08-02-2024 Sex Female (finding) [facility] Start: 1945 Sex Assigned At Female [facility] Sexual Orientation [facility] Medical Equipment Procedure Code Equipment Code Equipment Original Text Equipment Identifier Dates [id number], [id number], [id number] Start: 11-30-2020 End: 04-08-2023 Comment on above: [...] Functional Status Room check performed Gillian anny [place] 09-09-2024 Functional Status [facility] [place] 09-09-2024 Functional Status Skin Care Prev entative Intervention(s) heel(s)s elevated [facility] [place] 09-08-2024 Functional Status [facility] [place] 09-08-2024 Functional Status [facility] [place] 09-06-2024 Functional Status 11pm-7am [facility] [place] 09-06-2024 Functional Status Antiembolism S tocking On/Re-applied bilateral knee high [facility] 09-05-2024 Functional Status Oral Care [facility] Functional Status [facility] 09-05-2024 Functional Status Done Tyler [facility] 09-04-2024 Functional Status Tyler [facility] 09-04-2024 Functional Status Tyler [facility] 09-03-2024 Functional Status NPO Status Maintained A maryamgonzalo [place] 09-03-2024 Functional Status None [facility] [place] 09-03-2024 Functional Status [facility] [place] 08-29-2024 Functional Status Tyler Wo [facility] 08-29-2024 Functional Status [facility] [place] 08-27-2024 Functional Status Orthotics, Dev ice Worn Per Schedule Yes [facility] 08-27-2024 Functional Status [facility] [place] 08-26-2024 Functional Status [facility] [place] 08-23-2024 Functional Status [facility] [place] 08-23-2024 Functional Status Breakfast Percent 25 [facility] 08-20-2024 Functional Status [facility] [place] 08-19-2024 Functional Status [facility] [place] 08-16-2024 Functional Status Single level h ome, basement laundry [facility] 08-16-2024 Functional Status Outside Stairs Rail Rail on left going up [facility] [place] 08-15-2024 Functional Status Sensory Defici ts Speech deficit [facility] 10-14-2014 Are you deaf, or [...] jenkins 08-02-2024 Cognitive function Awake;Alert;F ollows Commands [facility] Work Phone: 10-14-2014 Because of a physica [...] with RVR acute October 02, 2024 9:29am [facility] Work Phone: 1(595) 446-981404-28-2025 Note Discharge Instructions Thank you for allowing [...] MD When:Within 3-7 days Where:[address] [place] [address]- Additional Information: Please schedule follow up PCP appointment for after discharge from SNF, Bring discharge instructions with you Follow Up with RIMMA POWERS MD When:10/08/2024 04:00 PM EDT Where:[facility] ([address], [place]) Additional Information: Neurosurgeon The Following Activity and [...] standard right Seat cushion, 99 month(s), Tyler [id number], 09/02/24 8:22:00 EDT Transfer of Care Wound [...] depending on your insurance coverage. Check with yourPaydiant company about what is covered. Keeping follow-up [...] 08/04/2017 Document Revised: 05/04/2018 Document Reviewed: 08/04/2017 [employer] Patient Education 2020 [employer] Additional Information VACCINATE! IT SAVES LIVES! Members of the community who have not yet received the COVID-19 vaccine and would like to receive it can visit one of [facility] vaccine clinics. There are many vaccine clinic locations within the [facility]. For locations and available times, please visit [email or web address] It is important to note that some COVID mobile vaccine clinics are held outdoors and may be canceled in rainy or stormy conditions. To learn more about pediatric vaccinations (ages 5-11), we invite you to visit the [facility] webpage. [email or web address]://[email or web address]/pages/[email or web address] [email or web address].htmlTo learn more about the COVID-19 vaccine, we invite you to visit the CDC website for a list of frequently asked questions.https://www.cdc.gov/coronavirus/2019-ncov/vaccines/faq.html [facility] Patient Portal Access Instructions: Stay connected with your healthcare team and access your personal medical information anytime with the [facility] Patient Portal. Please follow the directions below to create your [facility] account: 1.Access the email account you provided upon registration to the hospital/physician office.2.Look for an invitation email from [facility].3.Open the email and access the invitation link: AcceptInvitation to [facility].4.Fill in the required richards to create your account. To access your account, visit [email or web address]. Click the blue button labeled "Access Patient [...] who you will allowto register on the [facility] Patient Portal for access to your information. You can also access the [facility] Patient Portal on the [facility] dahlia. Simply click on "Patient Portal" and then log into your account. If you would like to receive a full copy of your medical records, please contact the [facility] Medical Records Department by calling [phone], Monday through Monday between 8 a.m. and [...] Call your local pharmacy or go to http://bit.ly/1S0No1v to find one close to you.3.Make use of household items: Use cat litter or old coffee grounds to dispose medications if other options arenot available. Mix your drugs with these household products, seal them in an airtight container andthrow it into the garbage. Call [facility]: [phone] to be sure your drugs can be [...] aware that I should contact my doctor. Patient/Analysis Internship Signature: Date/Time: Relationship to Patient: Witness Name/Signature: Date/Time: Tyler [id number] Note Discharge Instructions Thank you for allowing [...] KAMERON CARUSO MD When:Within 3-7 days Where:[address] [place] [address]- Additional Information: Please schedule follow up PCP appointment for after discharge from SNF, Bring discharge instructions with you Follow Up with RIMMA POWERS MD When:10/08/2024 04:00 PM EDT Where:[facility] ([address], [place]) Additional Information: Neurosurgeon The Following Activity and [...] standard right Seat cushion, 99 month(s), Tyler [id number], 09/02/24 8:22:00 EDT Transfer of Care Wound [...] depending on your insurance coverage. Check with [email or web address] about what is covered. Keeping follow-up visits [...] 08/04/2017 Document Revised: 05/04/2018 Document Reviewed: 08/04/2017 [employer] Patient Education 2020 [employer] Additional Information VACCINATE! IT SAVES LIVES! Members of the community who have not yet received the COVID-19 vaccine and would like to receive it can visit one of [facility] vaccine clinics. There are many vaccine clinic locations within the [facility]. For locations and available times, please visit [email or web address]/. It is important to note that some COVID mobile vaccine clinics are held outdoors and may be canceled in rainy or stormy conditions. To learn more about pediatric vaccinations (ages 5-11), we invite you to visit the [facility] webpage. https://[email or web address]/pages/[email or web address] [email or web address].htmlTo learn more about the COVID-19 vaccine, we invite you to visit the CDC website for a list of frequently asked questions.https://www.cdc.gov/coronavirus/2019-ncov/vaccines/faq.html [facility] Patient Portal Access Instructions: Stay connected with your healthcare team and access your personal medical information anytime with the [facility] Patient Portal. Please follow the directions below to create your [facility] [employer] account: 1.Access the email account you provided upon registration to the hospital/physician office.2.Look for an invitation email from [facility].3.Open the email and access the invitation link: AcceptInvitation to [facility].4.Fill in the required richards to create your account. To access your account, visit [email or web address]. Click the blue button labeled "Access Patient Portal" and then log in with the username and password that you created in the steps above. You will be able to view your test results, lab results, a summary of your visits, upcoming appointments and more. There is also a convenient messaging option where you can send secure messages to your p Howbuyvider. In addition, you will have the ability to download any documents or summaries to your computer and/or send the information securely to a physician. Remember that your healthcare information is confidential, so carefully consider who you will allowto register on the [facility] [employer] Patient Portal for access to your information. You can also access the [facility] [employer] Patient Portal on the [facility] [employer] dahlia. Simply click on "Patient Portal" and then log into your account. If you would like to receive a full copy of your medical records, please contact the [facility] Medical Records Department by calling [phone], Monday through Monday between 8 a.m. and [...] Call your local pharmacy or go to http://bit.Alter Way/0A3Gu6i to find one close to you.3.Make use of household items: Use cat litter or old coffee grounds to dispose medications if other options arenot available. Mix your drugs with these household products, seal them in an airtight container andthrow it into the garbage. Call [facility]: [phone] to be sure your drugs can be [...] aware that I should contact my doctor. Patient/Analysis Internship Signature: Date/Time: Relationship to Patient: Witness Name/Signature: Date/Time: Tyler [id number] Physical medicine and rehab Discharge summary Date [...] in discharge valuation. She was [facility] stay 08/02 [...] Ordered -- 08/15/24 17:18:00 EDT, AMI HEATON APRN-TOBACCO STEMMER, Skin Integrity per policy Physical Exam Vitals [...] oral tablet)1 tab(s) PEG tube every day. [id number] Microgram PEG tube once a day. metoprolol [...] KAMERON CARUSO MD When:Within 3-7 days Where:[address] [place] [address]- Additional Information: Please schedule follow up PCP appointment for after discharge from SNF, Bring discharge instructions with you Follow Up with RIMMA POWERS MD When:10/08/2024 04:00 PM EDT Where:[facility] ([address], [place]) Additional Information: Neurosurgeon Follow Up Appointments No qualifying data available. Follow Up Labs/Studies Discharge Labs No Follow-up Labs Discharge Studies No Follow-up Studies Discharge Diet No qualifying data available. Discharge Activity No qualifying data available. Condition on Discharge Stable Discharge Disposition care home facility Information Provided To Patient and family Time Spent Greater than 35 minutes Digitally Signed by SILVINO PEARL DO on 09/09/2024 01:46 PM [place] [address]-28-2025 Nurse Progress note Nursing GG Entered On: 09/09/2024 10:55 EDT Performed On: 09/09/2024 10:55 EDT by Abigail Rodas RN Nursing GG's OT GG Grid Eating : Not Completed Abigail Rodas RN - 09/09/2024 10:55 EDT Digitally Signed by Abigail Rodas RN on 09/09/2024 10:55 AM [place] [address]-27-2025 Nurse Progress note Nursing GG Entered On: 09/08/2024 17:39 EDT Performed On: 09/08/2024 17:39 EDT by Rob Alarcon RN Nursing GG's OT GG Grid Eating : Not Completed Oral Hygiene : Not Completed Toilet Hygiene : Substantial/Maximal Assistance Toilet Transfer : Substantial/Maximal Assistance Rob Alarcon RN - 09/08/2024 17:39 EDT Digitally Signed by Rob Alarcon RN on 09/08/2024 05:39 [address]27-2025 Nurse Progress note Pt had 250ml residual, 12:30pm bolus was held! Digitally Signed by Rob Alarcon RN on 09/08/2024 12:47 PM [place] [address]-25-2025 Physical medicine and rehab Progress note Rehab [...] candidate. She was then transferred to a [facility] for further management. CT of [...] Rate64(SEP 05 16:46)64(SEP 05 16:46)85(SEP 05 09:40) TWO310(SEP 05 16:36)138(SEP 05 16:36)H 158(SEP 05 09:52) [...] PEARL DO on 09/06/2024 12:34 PM Tyler [id number] Hospital Discharge instructions Patient Education 09/05/2024 14:15:00 [...] depending on your insurance coverage. Check with yourPaydiant company about what is covered. Keeping follow-up [...] 08/04/2017 Document Revised: 05/04/2018 Document Reviewed: 08/04/2017 [employer] Patient Education 2020 [employer]. Follow Up Care 08/15/2024 08:51:25 With:RIMMA POWERS MD Address: [facility] ([address], [place]) When:10/08/2024 16:00:00 Comments:Neurosurgeon With:JONNIE BANSAL MD Address: [facility] When: Unknown Comments:GI, No appointment needed until PEG is ready to be removed or concerns arise With:KAMERON CARUSO MD Address: [address] [place] [address]- When:3-7 days Comments:Please schedule follow up PCP [...] less than 3 seconds. Ongoing hemiparesis VITALS PcehteNbaoBNQiebeVLGeC3DSR3JpyzQq(kg) 09/05 09:5236.3--141739JZ 09/05 09:40----84----RA 09/04 23:3236.6--295320IM 09/04 21:2436.5--701092JY 09/04 16:01----71----RA 24 Hr Tmax: 36.6 at [...] None Problems (6) CVA (cerebral vascular accident) (822001076) Diabetes mellitus (934818836) Dysphagia (96337535) Hyperlipidemia (95605102) Hypertension (7030614188) Osteoarthritis (6716451261) ASSESSMENT/PLAN: Right basal ganglia hemorrhage, status post [...] CATHERINE DUEÑAS on 09/05/2024 04:55 PM Tyler [id number] Physical medicine and rehab Progress note Subjective [...] area Neuro: Left upper extremity hemiparesis VITALS EnpgvnPqnrQNFbgwrMPAxK8CAN7KmikBd(kg) 09/04 23:3236.6--117948UT 09/04 21:2436.5--383485NF 09/04 16:01----71----RA 09/04 12:10--------97RA 09/04 10:5435.9--584988GF 24 Hr Tmax: 36.6 at 09/04 23:32 [...] tab(s), PEG, Daily, 08/15/24 17:09:00 EDT balsam Riley-castor oil topical (Venelex 788 mg-87 mg/g topical [...] SBP (mmHg) < 110, 1st dose location: [facility], , 08/15/24 17:09:00 EDT Active PRN [...] 2 minutes, REPEAT x1., 1st dose location: [facility], 0, 08/15/24 1... glucose (Dextrose 50% [...] None Problems (6) CVA (cerebral vascular accident) (336519084) Diabetes mellitus (432962493) Dysphagia (39823564) Hyperlipidemia (40576313) Hypertension (1444023584) Osteoarthritis (0183921332) ASSESSMENT/PLAN: Acute right basal ganglia hemorrhage with [...] HUTTON DO on 09/05/2024 10:12 AM Tyler [id number] Physical medicine and rehab Progress note Rehab [...] candidate. [facility] [facility] of [...] Rate64(SEP 03 15:52)64(SEP 03 15:52)90(SEP 03 08:28) CFM199(SEP 04 05:38)112(SEP 04 05:38)127(SEP 03 08:00) DBP70(SEP [...] PEARL DO on 09/04/2024 11:55 AM Tyler GarciaDvdyilgx31-81-0914 Note Subjective Patient states she is doing [...] area Neuro: Left upper extremity hemiparesis VITALS BucrxtLraqVCBbkkmMSUqN6WAO4CkahVz(kg) 09/03 21:4136.4--262766PO 09/03 15:52----64---- 09/03 08:46 09/03 08:28----90---- 09/03 08:0036.4--352591WZ 24 Hr Tmax: 36.4 at 09/03 21:41 [...] SBP (mmHg) < 110, 1st dose location: [facility], 1, 08/15/24 17:09:00 EDT oxybutynin (oxybutynin [...] 2 minutes, REPEAT x1., 1st dose location: [facility], 0, 08/15/24 1... glucose (Dextrose [...] None Problems (6) CVA (cerebral vascular accident) (668128970) Diabetes mellitus (119554956) Dysphagia (87174045) Hyperlipidemia (91501529) Hypertension (5736121136) Osteoarthritis (7038560789) ASSESSMENT/PLAN: Acute right basal ganglia hemorrhage with [...] HUTTON DO on 09/05/2024 08:57 AM Tyler [id number] Note Subjective Patient states that she is [...] area Neuro: Left upper extremity hemiparesis VITALS IqkmmxDptcGNDxkpfOQRgZ0ESB7BpmpTk(kg) 09/03 00:2636.3--626248JG 09/02 21:5136.2--223367BQ 09/02 16:56----88--98RA 09/02 10:40 RA 09/02 09:0936.0--001051QW 24 Hr Tmax: 37.0 at 09/02 05:55 [...] SBP (mmHg) < 110, 1st dose location: [facility], 1, 08/15/24 17:09:00 EDT oxybutynin (oxybutynin [...] None Problems (6) CVA (cerebral vascular accident) ([id number]) Diabetes mellitus (127698256) Dysphagia (04950351) Hyperlipidemia (40435545) Hypertension (5294948234) Osteoarthritis (3327093101) ASSESSMENT/PLAN: Acute right basal ganglia hemorrhage with [...] NANDO HUTTON DO on 09/05/2024 08:57 AM [facility]* Exam Date Time Procedure Performing Provider Status 09/02/24 2:[address] Head or Brain w/o Contrast Brenda MCCLELLAN MD; Auth (Verified) [id number] ORIGINAL HISTORY: Lethargy COMPARISON: No TECHNIQUE: Routine [...] 09/02/2024 3:10:44 PM Ordering Provider: SILVINO Scott [id number] Telephone encounter Note* Telephone Encounter - Fouzia Miller LPN - 08/30/2024 10:09 AM EDT Marya Scott [facility] notified. [facility]04-18-2025 Miscellaneous Notes* Telephone Encounter - Fouzia Miller LPN - 08/30/2024 10:09 AM EDT Marya Scott [facility] notified. * Telephone Encounter - Mj Glover APRN.CNP - 08/30/2024 9:19 AM EDT Please let know that Dr. Caruso's team will follow orders. Okay to proceed. Mj Glover APRN.CNP * Telephone Encounter - Jaiden Paulino RN - 08/30/2024 9:07 AM EDT [facility] reports patient was in [facility] with dx: stroke, and transferred to [facility]. Pt will be discharged from [facility] on 09/07/[address] [facility] SN PT OT [facility] & [facility]. Asking if pcp agreeable to follow for HHC. Please phone Marya with verbal: [phone] documented in this [facility]04-[facility]25 Telephone encounter Note * Telephone Encounter - Mj Glover APRN.CNP - 08/30/2024 9:19 AM EDT Please let know that Dr. Caruso's team will follow HH orders. Okay to proceed. Mj Glover APRN.CNP [facility]04-18-2025 Telephone encounter Note* Telephone Encounter - Jaiden Paulino RN - 08/30/2024 9:07 AM EDT [facility] reports patient was in [facility] with dx: stroke, and transferred to [facility]. [facility] [facility] SN PT OT ST & [facility]. Asking if pcp agreeable to follow for HHC. Please phone Marya with verbal: [phone] [facility]04-14-2025 Note REFERRING PHYSICIAN: Silvino Pearl DO. CONSULTING PSYCHOLOGIST: Matthew Gibson, PhD. REASON FOR REFERRAL: Neuropsychological exam. HISTORY OF PRESENT ILLNESS: Ms. Acuna is a 78-year-old right-handed white female admitted to [facility] from [facility] on 08/15/2024 after developing left-sided [...] mild concussions suffered after a career in [employer]. No residual deficits reported. No other DISPLAY CARVER injuries or illnesses. MENTAL HEALTH HISTORY: No [...] of NPO. and Mrs. Acuna live in [place]. 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 She has a high school diploma from her hometown in [place], [place]. TEST RESULTS: I used the Cognistat, [...] be determined. MATTHEW GIBSON, PhD LESLIE/SHANNON JOB#: [id number] DICTATION ID#: [id number] Digitally Signed by MATTHEW GIBSON PhD on 08/27/2024 08:21 AM [facility]kyfcujs80-91-4852 Note* Exam Date Time Procedure Performing Provider Status 08/25/24 1:46 PM XR Hand and Wrist 6 Views Left Buck LAY DO; Auth (Verified) [id number] ORIGINAL EXAMINATION: 3 XRAY VIEWS OF THE [...] 08/25/2024 2:27:26 PM Ordering Provider: JACKLYN Scott [id number] Note* Exam Date Time Procedure Performing Provider Status 08/25/24 1:45 PM XR Shoulder Minimum 2 Views Left JAMAR LAY DO; Auth (Verified) [id number] ORIGINAL EXAMINATION: TWO XRAY VIEWS OF THE [...] 08/25/2024 2:26:45 PM Ordering Provider: JACKLYN Scott [id number] Note* Exam Date Time Procedure Performing Provider Status 08/25/24 1:43 PM XR Humerus Minimum 2 Views Left ROSANNEJAMAR ; Auth (Verified) [id number] ORIGINAL EXAMINATION: TWO XRAY VIEWS OF THE [...] 08/25/2024 2:26:11 PM Ordering Provider: JACKLYN Scott [id number] Note* Exam Date Time Procedure Performing Provider Status 08/18/24 3:08 PM XR Chest 1 View Contributor_system, FUJ I; Auth (Verified) [id number] ORIGINAL EXAMINATION: ONE XRAY VIEW OF THE [...] Plan noteExtracted from: Title:Clinical Document Author:EZEQUIEL TURCIOS RN-TOBACCO STEMMER Date:08/16/24 Acute Inpatient Rehab Histor y and Physical Date of Service: 08/16/2024 Date of Admission: 08/15/2024 Attending Physician: Dr. Pearl [employer] 1.1 left body involvement, right brain stroke Etiologic Diagnosis Hemorrhagic infarct involving right basal ganglia, mass effect with effacement of right lateral ventricle, tiny infarct in right cerebellum History of Present Illness 78-year-old female noted to home in inpatient rehab from [facility] stay 08/02 - 08/15 who [...] candidate. She was then transferred to a [facility] for further management. CT of [...] feedings. Patient deemed medically stable transferred to [facility] for physical and occupational [...] with spouse, first- floor set up. Primary Fuel Retrofitting Technician: Self. Safe place to go: Yes. Lives [...] Rate80(AUG 15 20:06)80(AUG 15 20:06)80(AUG 15 20:06) ARE652(AUG 16 00:03)128(AUG 16 00:03)140(AUG 15 17:47) DBP76(AUG 16 00:03)76(AUG 16 00:03)80(AUG 15 17:47) 36hr Labs 08/15 1805 Blood Glucose, Hrzsqmjis522X Blood Glucose, Rmzmrpbxj886A Blood Glucose TSee Flowsheet Assessment/Plan Debility and [...] and it is both accurate and complete. [facility] 04-04-2025 Physical medicine and rehab Consult note INPATIENT REHAB MEDICAL CONSULT DATE OF ADMISSION: 08/16/2024 CC: Acute right basal hemorrhage HISTORY OF PRESENT ILLNESS: This is a 78-year-old female admitted to [facility] from [facility] stay 08/02 [...] was deemed medically stable and transferred to [facility] for physical and occasional [...] Rate80(AUG 15 20:06)80(AUG 15 20:06)80(AUG 15 20:06) SHG997(AUG 16 00:03)128(AUG 16 00:03)140(AUG 15 17:47) DBP76(AUG [...] reviewed. 36hr Labs / 1805 Blood Glucose, Lemozblux879A Blood Glucose, Bmirntyle866R Blood Glucose TSee Flowsheet ASSESSMENT AND PLAN: [...] during acute rehabilitation stay at [facility] Inpatient Rehab Unit with the [...] CATHERINE DUEÑAS on 08/17/2024 04:53 PM Tyler GarciaIkzpwbqo12-15-3900 Physical medicine and rehab History and physical [...] noted to home in inpatient rehab from [facility] stay 08/02 -08/15 who is [...] candidate. [facility] [...] feedings. Patient deemed medically stable transferred to [facility] for physical and occupational [...] with spouse, first- floor set up. Primary Fuel Retrofitting Technician: Self. Safe place to go: Yes. Lives [...] Rate80(AUG 15 20:06)80(AUG 15 20:06)80(AUG 15 20:06) YZN732(AUG 16 00:03)128(AUG 16 00:03)140(AUG 15 17:47) DBP76(AUG 16 00:03)76(AUG 16 00:03)80(AUG 15 17:47) 36hr Labs 08/15 1805 Blood Glucose, Yrofslcag524Y Blood Glucose, Xkslwgwsx056M Blood Glucose TSee Flowsheet Assessment/Plan Debility and [...] EZEQUIEL TURCIOS on 08/22/2024 05:17 AM Tyler GarciaBdgvgzcl29-48-9265 Miscellaneous Notes* Nursing Notes - Robson Steel [...] pacing over x3-5 sessions Outcome: Ongoing Problem: GLUE MILL OPERATOR - Cognition Goal: Orientation Log - [...] pacing over x3-5 sessions Outcome: Ongoing Problem: GLUE MILL OPERATOR - Cognition Goal: Orientation Log - [...] Ongoing * Plan of Care - Nubia Pienda RN - 08/12/2024 1:21 AM EDT 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 - If used jail, initial PEG should be changed in 6-12 months depending on tube condition. - No plans for repeat outpatient EGD at this time based on clinical status Jonnie Mccabe MD Division of Gastroenterology, Hepatology, and Nutrition Clinical Fellow PGY-4 Pager: [phone] * Plan of Care - Manisha Cheema [...] what the specific medication was. Daughter, Keagan [phone] would be able to answer questions. Catherine [...] oropharyngeal swallow function to most appropriately guide GLUE MILL OPERATOR plan of care Outcome: Met Goal: [...] readiness for diet advancement Outcome: Met Problem: GLUE MILL OPERATOR - Cognition Goal: Orientation Log - [...] better assess deficits and most appropriately guide GLUE MILL OPERATOR plan of care Outcome: Met Goal: [...] of Care: 1. Diet: NPO. Advancement per team/GLUE MILL OPERATOR recommendation 2. Ordered TF: Glucerna 1.5 [...] readiness for diet advancement Outcome: Ongoing Problem: GLUE MILL OPERATOR - Cognition Goal: Orientation Log - [...] better assess deficits and most appropriately guide GLUE MILL OPERATOR plan of care Outcome: Ongoing * Nursing Notes - Aniyah Torre RN - 08/02/2024 6:13 PM EDT On admission to [facility], from [place] a dual RN initial assessment [...] change from previous assessment. Pt transferred to [facility] via cart accompanied [...] under emergency consent. SURGEON(S): Prema Ramos MD WELDER HELPER(S): None ANESTHESIA: Monitored anesthesia care DESCRIPTION OF [...] Freeclimb 70/Serjio 7 was advanced over a [employer]man microcatheter which was advanced over a synchro [...] - 08/02/2024 3:26 PM EDT Lindsay Acuna ([id number]) PRE OPERATIVE DIAGNOSIS Cerebral infarction due to [...] - Primary ANESTHESIOLOGIST Anesthesiologist: Tameka Ruth MD FACING MACHINE OPERATOR: Bebo Barboza APRN-FACING MACHINE OPERATOR SURGICAL STAFF Market Development Analyst: Rachell Ruffin RN Solar System Installer: Pualina Muñiz; Radha Morales COMPLICATIONS None ESTIMATED BLOOD LOSS Minimal SPECIMENS No specimen sent * No specimens in log * Prema Ramos MD August 02, 2024 3:26 PM documented in this encounterN[facility]04-[facility] History of Present illness Narrative* OWEN Benavides - 08/15/2024 9:01 AM EDT Care Management Discharge Note Selected Continued Care - Admitted Since 08/02/2024 Destination Coordination complete. Service Provider Services Address Phone Fax Patient Preferred [facility] [address] [place] [phone] -- -- Internal Comment last updated by OWEN Benavides 08/15/2024 0901 Report fax: [phone] Transport Request Mode of Transfer: [facility] Name of Discharge Transport Company: [facility] Discharge Transport ETA: 08/15/2024 @ 1030 Patient medically stable for discharge per physician/medical team. Pt has neurology appointment scheduled. Pt/ to schedule appointment with PCP. Patient/Analysis Internship remain in agreement withthe discharge plan. BULMARO Allen Superintendent Police * OWEN Benavides - 08/14/2024 3:17 PM [...] numbersfor RN report tomorrow morning. BULMARO Allen Superintendent Police * Marybeth Ayoub - 08/14/2024 2:51 PM EDT Care Management Progress Note Transportation for discharge arranged Mode of Transfer: (P) S Name of Discharge Transport Company: (P) [facility]charge Transport ETA: (P) 08/15/2024 @ 1030 Pick-up from [facility] 1032/A Destination Tyler ALVARADO [address] [facility] [id number] OWEN Morrell Superintendent Police Underground Mine Superintendent [phone] * Jazzy Aguiar - 08/14/2024 9:47 AM [...] position Mobility Assessment/Intervention: Supine to Sit Mobility Cidra Level: Supine->Sit: moderate assist (50% patient effort) Physical Assist: Supine->Sit: 2 person assist Bed Features/Set-up: Supine->Sit: Head of bed elevated, Use of bed rail Skilled Rationale: Verbal cues, Tactile cues, Hand placement, Positioning, Technique of activity Skilled Intervention/Details: Supine->Sit: Cues for technique of transfer and pt needing increased assistance for managing legs and trunk to EOB positioning Transfer Assessment/Intervention: Sit to Stand Transfer Cidra Level: Sit->Stand: moderate assist (50% patient effort) [...] hand held support Stand to Sit Transfer Cidra Level: Stand->Sit: moderate assist (50% patient effort) Physical Assist: Stand->Sit: 2 person assist Assistive Device: Stand->Sit: gait belt, hand held assist Skilled Rationale: Verbal cues, Tactile cues, Hand placement, Positioning, Controlled descent for sitting Skilled Intervention/Details: Stand->Sit: Cues for positioning with BSC and recliner, pt provided bilat hand held support and needing increased support for managing a controlled descent Bed-Chair Transfer Cidra Level: Bed<->Chair: maximum assist (25% patient effort) [...] managing L side during transfer Toilet Transfer Cidra Level: Toilet: moderate assist (50% patient effort) [...] upright gaze when standing Outcome Score(s): CURRENT [facility] Daily Activity Inpatient Short Form Putting on/Taking Off Lower Body Clothin - Total Assistance Bathin - A Lot of Assistance Toiletin - Total Assistance Putting on/Taking Off Upper Body Clothin - A Little Assistance Groomin - A Little Assistance Eatin - Total Assistance CURRENT [facility] Activity Raw Score: 11 CURRENT [facility] Activity Functional Limitation/Modifier: 70.42% Currently Impaired [...] person, Oriented to place, Oriented to situation ("[place]" "hospital" "May" "2024" "stroke") Following Commands: Follows [...] blocking Mobility Assessment/Intervention: Supine to Sit Mobility Cidra Level: Supine->Sit: moderate assist (50% patient effort) [...] sitting) Transfer Assessment/Intervention: Sit to Stand Transfer Cidra Level: Sit->Stand: moderate assist (50% patient effort) Physical Assist: Sit->Stand: 2 person assist Assistive Device: Sit->Stand: gait belt Skilled Rationale: Arm in arm, Patellar block, Ischial assist, Facilitate anterior shift, Full extension to upright positioning/posture, Finding/maintaining midline positioning Skilled Intervention/Details: Sit->Stand: repeat cues to avoid significant L lean with improvement last standing. x1 from EOB, x2 from BSC Stand to Sit Transfer Cidra Level: Stand->Sit: moderate assist (50% patient effort) Physical Assist: Stand->Sit: 2 person assist Assistive Device: Stand->Sit: gait belt Skilled Rationale: Arm in arm, Controlled descent for sitting Skilled Intervention/Details: Stand->Sit: last trial assisted R hand to recliner arm rest and ongoing cues for wt shift to R Bed-Chair Transfer Cidra Level: Bed<->Chair: maximum assist (25% patient effort) [...] Mobility Assessment/Intervention: Stairs Assessment/Intervention: Outcome Score(s): CURRENT [facility] Basic Mobility Inpatient Short Form Turning [...] with a railin - Total Assistance CURRENT [facility] Mobility Raw Score: 8 CURRENT [facility] Mobility Functional Limitation: 86.62% Impaired in [...] 10 Treating Therapist: Shaina Rosales PT, DPT [id number] 08/14/2024 Additional Details: PT Co-Eval/Treatment Information Co-evaluation/co-treatment [...] on the below outcome measures/assessment score(s) and GLUE MILL OPERATOR clinicaljudgment, discharge destination recommendation is: IPR Barriers to discharge home: 1:1 assist needed for IADL's including medication management and finances Supporting factors for discharge setting: Impaired swallow function limiting nutritional status andsafety with oral intake, Impaired cognitive skills limiting safety/insight Acute GLUE MILL OPERATOR Outcomes Tracking Communicate basic wants and [...] independent carry over. Strong family support. Ongoing GLUE MILL OPERATOR s indicated. Subjective information: Alert, present. SO referenced his notes from yesterday and reportedcarry over of exercises yesterday. Patient with zero recall Pain: Nonverbal indicator not present Precautions: Patient Safety Communication Prior to Visit: Nursing Lines/Tubes/Drains (Rehab Status): Telemetry, Tube feed Existing Precautions/Restrictions: fall Respiratory Status: O2 Sat (%): 96 % (08/14 0711) O2 Device: room air (08/14 0947) Acute GLUE MILL OPERATOR Goals Plan of Care by Tanja Cason GLUE MILL OPERATOR at 08/14/2024 2:42 PM Version 1 [...] RoM to achieve technique. Outcome: Ongoing Problem: GLUE MILL OPERATOR - Cognition Goal: Orientation Log - [...] next session: 08/14 - ongoing exercises, education GLUE MILL OPERATOR Outcomes: FOIS 2 Speech Language Pathologist: Tanja Cason GLUE MILL OPERATOR Time In: 836 Time Out: 904 Total Visit Time: 28 minutes Total Treatment Time (skilled, billable minutes): 28 minutes Non-billable assistance during session: na Assisted by during session: na PPE used during patient interaction: gloves Patient location/status at end of session: bed with head of bed elevated Patient alarms at end of session: none altered Needs in reach. GLUE MILL OPERATOR Evaluation and Treatment Time Speech Therapy - Individual 97812: 14 Swallowing Dysfunction Treatment 51199: 14 Upon discontinuation of Acute Care Speech [...] on the below outcome measures/assessment score(s) and GLUE MILL OPERATOR clinicaljudgment, discharge destination recommendation is: Inpatient Rehab Facility Barriers to discharge home: 1:1 assist needed for IADL's including medication management and finances Supporting factors for discharge setting: Impaired swallow function limiting nutritional status andsafety with oral intake, Impaired cognitive skills limiting safety/insight Acute GLUE MILL OPERATOR Outcomes Tracking Communicate basic wants and [...] O2 Device: room air (08/13 710) Acute GLUE MILL OPERATOR Goals Plan of Care by Tanja Cason GLUE MILL OPERATOR at 08/13/2024 11:10 AM Version 1 [...] 10 reps this session. Outcome: Ongoing Problem: GLUE MILL OPERATOR - Cognition Goal: Orientation Log - [...] considerations: Cognition Patient Instruction/Education comments: Role of GLUE MILL OPERATOR, presence and normalized frustration with cognitive-communicative impairments. Focused on memory this date and that patient does not recall education so perseverative questions are normal. Reviewed intermittent silent aspiration from MBS last weekand ongoing signs of dysphagia this session, will plan to coordinate timing for repeat instrumentalwith care team Plan for next session: 08/13 -fair GLUE MILL OPERATOR Outcomes: FOIS 2 Speech Language Pathologist: [...] of session: none altered Needs in reach. GLUE MILL OPERATOR Evaluation and Treatment Time Speech Therapy - Individual 03478: 12 Swallowing Dysfunction Treatment 92530: 13 Upon discontinuation of Acute Care Speech Therapy Services or patient discharge from the hospital this note represents the current Speech Therapy Discharge Summary * OWEN Benavides - 08/12/2024 3:21 PM EDT Placement Plan Expected Discharge Date: 08/14/2024 Referred Level of Care: IPR Barriers: Medical Readiness & Precertification Current Referrals and Status 1. Tyler Garcia-accepted IPR started precertification today. BULMARO Allen Superintendent Police * Jazzy Aguiar - 08/12/2024 10:46 AM [...] sinkside Mobility Assessment/Intervention: Supine to Sit Mobility Cidra Level: Supine->Sit: moderate assist (50% patient effort) [...] positioning Transfer Assessment/Intervention: Sit to Stand Transfer Cidra Level: Sit->Stand: maximum assist (25% patient effort) [...] maintaining upright posture Stand to Sit Transfer Cidra Level: Stand->Sit: maximum assist (25% patient effort) Physical Assist: Stand->Sit: 2 person assist Assistive Device: Stand->Sit: gait belt, hand held assist Skilled Rationale: Verbal cues, Tactile cues, Hand placement, Positioning, Controlled descent for sitting Skilled Intervention/Details: Stand->Sit: Cues for positioning with recliner and using BUEs to help with appropriate positoining of hips in chair Bed-Chair Transfer Cidra Level: Bed<->Chair: maximum assist (25% patient effort) Physical Assist: Bed<->Chair: 2 person assist Assistive Device: Bed<->Chair: gait belt Skilled Rationale: Verbal cues, Tactile cues, Hand placement, Positioning, Technique of activity Skilled Intervention/Details: Bed<->Chair: x1 from EOB to recliner on R. Pt needing increasedsupport for managing L side and sequencing steps for appropriate positioning with recliner Outcome Score(s): CURRENT -[facility] Daily Activity Inpatient Short Form Putting on/Taking Off Lower Body Clothin - Total Assistance Bathin - A Lot of Assistance Toiletin - Total Assistance Putting on/Taking Off Upper Body Clothin - A Lot of Assistance Groomin - A Lot of Assistance Eatin - Total Assistance CURRENT [facility] Activity Raw Score: 9 CURRENT -[facility] Activity Functional Limitation/Modifier: 79.59% Currently Impaired [...] L hemiplegia. She presented to [facility] and was seen on Telestroke, NIHSS 12. [...] goal TF volume. Pt last assessed by GLUE MILL OPERATOR 08/08 with recommendations for NPO. S/p [...] chips. Will also increase free water flushes. GLUE MILL OPERATOR to see pt tomorrow. Nutrition Focused Physical Exam: Nutrition Focused Physical Exam Completed?: completed Subcutaneous Fat Loss: Orbital Region (Orbital Fat Pads): WDL Cheek Region (Buccal Fat Pads): WDL Upper Arm Region (Triceps): WDL Thoracic and Lumbar Region (Ribs, Lower Back, Midaxillary Line): WDL Muscle Wasting: Mormonism Region (Temporalis Muscle): deferred (lac over eyebrow) [...] Needs: Weight Used: 61 kg (IBW) EEN: 1006-4431 kcal/day (25-30 kcal/kg) EPN: 73-92 g/day (1.2-1.5 g/kg) EFN: 1830 mL/day (30 mL/kg) or per primary team Malnutrition Statement: Does the patient meet criteria for malnutrition: No *Based on The Academy and ASPEN Indicators to Diagnose Malnutrition (AAIM) criteria (2012) Tianna Murray RD, LD, [facility] Pager #[phone] * Katie Ramos, PT - 08/12/2024 10:22 [...] standing. Mobility Assessment/Intervention: Supine to Sit Mobility Cidra Level: Supine->Sit: moderate assist (50% patient effort) Physical Assist: Supine->Sit: 2 person assist Bed Features/Set-up: Supine->Sit: Head of bed elevated Skilled Rationale: Verbal cues, Tactile cues, Hand placement, Technique of activity Skilled Intervention/Details: Supine->Sit: verbal/tactile cues for instruction on transfer technique and mod A x 2 for LE and trunk management. Transfer Assessment/Intervention: Sit to Stand Transfer Cidra Level: Sit->Stand: maximum assist (25% patient effort) Physical Assist: Sit->Stand: 2 person assist Assistive Device: Sit->Stand: gait belt Skilled Rationale: Verbal cues, Tactile cues, Hand placement, Technique of activity Skilled Intervention/Details: Sit->Stand: x2 trials with verbal/tactile cues for instruction on transfer technique, hand placement, and blocking left knee. Bed-Chair Transfer Cidra Level: Bed<->Chair: maximum assist (25% patient effort) Physical Assist: Bed<->Chair: 2 person assist Assistive Device: Bed<->Chair: gait belt Skilled Rationale: Verbal cues, Tactile cues, Hand placement, Technique of activity Skilled Intervention/Details: Bed<->Chair: x1 trial from EOB to chair to the right. Verbal/tactile cues for instruction on transfer technqiue, blocking left knee. Outcome Score(s): CURRENT [facility] Basic Mobility Inpatient Short Form Turning over in bed: 2 - A Lot of Assistance Moving from lying on back to sittin - Total Assistance Moving to and from bed to chair: 1 - Total Assistance Sitting/standing from chair: 1 - Total Assistance Walk in hospital room: 1 - Total Assistance Climbing 3-5 steps with a railin - Total Assistance CURRENT [facility] Mobility Raw Score: 7 CURRENT [facility] Mobility Functional Limitation: 92.36% Impaired in [...] Physical Therapy Discharge Summary. * Radha Gr, SERVICE GREETER-TOBACCO STEMMER - 08/11/2024 7:15 AM EDT NEUROVASCULAR STROKE SERVICE Daily Progress Note IDENTIFYING INFORMATION Lindsay Acuna MR# [id number] 08/11/2024 HISTORY OF PRESENT ILLNESS Lindsay Acuna is a 78 y.o. female with PMH significant for CAD, HTN, HLD, T2DM, Afib (on Eliquis, although patient reports she has not been taking it) who presents with L hemiplegia, slurred speech. LKW 0915 on 08/02, later found down with slurred speech and L hemiplegia. She presented to [facility] and was seen on Telestroke, NIHSS 12. [...] 2b revascularization. INTERVAL HISTORY 08/05: Transfer to ID. MBS tomorrow 08/06: Failed MBS. Increased lopressor. [...] today 08/11 -Rate controlled on metoprolol Dysphagia: -GLUE MILL OPERATOR following -NPO, DHT + TF -Failed [...] Lindsay Acuna will likely be discharged to [facility] when medically ready Radha Gr, SERVICE GREETER-TOBACCO STEMMER 08/11/2024 10:17 AM VITAL SIGNS Temp: [97.2 [...] for specific therapeutic recommendations, please see the train brake operator report of the speech pathologist. Examination [...] and neurological examinations as recorded by the TUNNEL KILN REPAIRER repeated and confirmed. I have personally [...] tooth. Blood cx unremarkable. * Radha Gr, JASIEL-TOBACCO STEMMER - 08/10/2024 7:14 AM EDT NEUROVASCULAR STROKE SERVICE Daily Progress Note IDENTIFYING INFORMATION Lindsay Acuna MR# [id number] 08/10/2024 HISTORY OF PRESENT ILLNESS Lindsay Acuna is a 78 y.o. female with PMH significant for CAD, HTN, HLD, T2DM, Afib (on Eliquis, although patient reports she has not been taking it) who presents with L hemiplegia, slurred speech. LKW 0915 on 08/02, later found down with slurred speech and L hemiplegia. She presented to [facility] and was seen on Telestroke, NIHSS 12. [...] 2b revascularization. INTERVAL HISTORY 08/05: Transfer to ID. MBS tomorrow 08/06: Failed MBS. Increased lopressor. [...] as above -Rate controlled on metoprolol Dysphagia: -GLUE MILL OPERATOR following -NPO, DHT + TF -Failed [...] Lindsay Acuna will likely be discharged to [facility] when medically ready Radha Gr, JASIEL-TOBACCO STEMMER 08/10/2024 7:14 AM VITAL SIGNS Temp: [97.4 [...] for specific therapeutic recommendations, please see the train brake operator report of the speech pathologist. Examination [...] skin and external bumper. - If used jail, PEG should be changed every 3-6 months [...] Hepatology, and Nutrition Clinical Fellow PGY-4 Pager: [phone] For follow up questions regarding this patient 7am to 5pm, contact the IBD consults fellow or DAHLIA on [employer]. [facility]--> Internal Medicine--> Gastroenterology, Hepatology, & Nutrition--> IBD Consult Service Fel Day OR IBD Consult Service DAHLIA Day For urgent/stat calls or new consults 5pm to 7am or all day on the weekend, please page the on-callGI fellow on [employer]. [facility]--> Internal Medicine--> Gastroenterology, Hepatology, & Nutrition--> 1st Call Fel Miriam OR STAT/NEW GI Cons Wknd Day Cosigned by Niru Koch MD at 08/10/2024 2:11 PM EDT * OWEN Benavides - 08/09/2024 3:34 PM EDT Placement Plan Expected Discharge Date: Referred Level of Care: IPR Barriers: Medical Readiness and Precertification Current Referrals and Status 1. [facility] IPR-accepted IPR will start precertification on Monday after updated therapy notes are in. For Case Management assistance for the weekend, please contact CM for assistance as needed (8:00am-4:30pm) BASH: [phone] Maria: [phone] Johan: [phone] Ross: [phone] For Social Work assistance for the weekend, please contact for assistance as needed (8:00am - 4:30pm): BASH: [phone] Maria: [phone] Johan: [phone] Ross: [phone] * Radha Gr APRN-TOBACCO STEMMER - 08/09/2024 8:07 AM EDT NEUROVASCULAR STROKE SERVICE Daily Progress Note IDENTIFYING INFORMATION Lindsay Acuna MR# [id number] 08/09/2024 HISTORY OF PRESENT ILLNESS Lindsay Acuna is a 78 y.o. female with PMH significant for CAD, HTN, HLD, T2DM, Afib (on Eliquis, although patient reports she has not been taking it) who presents with L hemiplegia, slurred speech. LKW 0915 on 08/02, later found down with slurred speech and L hemiplegia. She presented to [facility] and was seen on Telestroke, NIHSS 12. [...] 2b revascularization. INTERVAL HISTORY 08/05: Transfer to ID. MBS tomorrow 08/06: Failed MBS. Increased lopressor. [...] as above -Rate controlled on metoprolol Dysphagia: -GLUE MILL OPERATOR following -NPO, DHT + TF -Failed [...] Lindsay Acuna will likely be discharged to [facility] when medically ready Radha Gr, JASIEL-TOBACCO STEMMER 08/09/2024 8:07 AM VITAL SIGNS Temp: [97.3 [...] for specific therapeutic recommendations, please see the train brake operator report of the speech pathologist. Examination [...] on the below outcome measures/assessment score(s) and GLUE MILL OPERATOR clinicaljudgment, discharge destination recommendation is: Inpatient Rehab Facility Acute GLUE MILL OPERATOR Outcomes Tracking Communicate basic wants and [...] pressions and introduction to effortful swallow exercise. GLUE MILL OPERATOR provided education regarding recommendation of NPO [...] constraints (transport arrived for pt's CT scan). GLUE MILL OPERATOR will follow as able. Subjective information: Patient upright in chair, at bedside. Agreeable to GLUE MILL OPERATOR session. Pain: General Pain Documentation (Adult, [...] room air Flow (L/min): [3] 3 Acute GLUE MILL OPERATOR Goals Plan of Care by RIKI [...] phsyiology, risks of aspiration pneumonia). Educated regarding GLUE MILL OPERATOR role in swallow rehab and future POC Plan for next session: 08/06: cog tx and dysphagia exercises GLUE MILL OPERATOR Outcomes: FOIS: 1 Speech Language Pathologist: RIKI Penaloza Time In: 1310 Time Out: 1330 Total Visit Time: 20 minutes Total Treatment Time (skilled, billable minutes): 20 minutes Non-billable assistance during session: NA Assisted by during session: NA PPE used during patient interaction: gloves Patient location/status at end of session: chair Patient alarms at end of session: none altered Needs in reach. GLUE MILL OPERATOR Evaluation and Treatment Time Swallowing Dysfunction Treatment 81473: 20 Upon discontinuation of Acute Care Speech [...] feedback Mobility Assessment/Intervention: Supine to Sit Mobility Cidra Level: Supine->Sit: moderate assist (50% patient effort) Physical Assist: Supine->Sit: 2 person assist Bed Features/Set-up: Supine->Sit: Use of bed rail, Head of bed elevated Skilled Rationale: Sequencing, Verbal cues, Hand placement, Positioning Skilled Intervention/Details: Supine->Sit: increased time/cues Transfer Assessment/Intervention: Sit to Stand Transfer Cidra Level: Sit->Stand: moderate assist (50% patient effort) Physical Assist: Sit->Stand: 2 person assist Assistive Device: Sit->Stand: gait belt, hand held assist Skilled Rationale: Positioning, Sequencing, Hand placement, Verbal cues Skilled Intervention/Details: Sit->Stand: Pt educated in sit to stand transfers x 2 attempts, one from EOB and one from chair Bed-Chair Transfer Cidra Level: Bed<->Chair: maximum assist (25% patient effort) [...] Mobility Assessment/Intervention: Stairs Assessment/Intervention: Outcome Score(s): CURRENT [facility] Basic Mobility Inpatient Short Form Turning [...] with a railin - Total Assistance CURRENT [facility] Mobility Raw Score: 8 CURRENT [facility] Mobility Functional Limitation: 86.62% Impaired in [...] positioning Mobility Assessment/Intervention: Supine to Sit Mobility Cidra Level: Supine->Sit: moderate assist (50% patient effort) [...] positioning Transfer Assessment/Intervention: Sit to Stand Transfer Cidra Level: Sit->Stand: moderate assist (50% patient effort) Physical Assist: Sit->Stand: 2 person assist Assistive Device: Sit->Stand: gait belt, hand held assist Skilled Rationale: Verbal cues, Tactile cues, Hand placement, Positioning, Technique of activity Skilled Intervention/Details: Sit->Stand: x1 from EOB, x1 from recliner. Cues for technique and assuming an upright posture once standing Stand to Sit Transfer Cidra Level: Stand->Sit: moderate assist (50% patient effort) Physical Assist: Stand->Sit: 2 person assist Assistive Device: Stand->Sit: gait belt, hand held assist Skilled Rationale: Verbal cues, Tactile cues, Hand placement, Positioning, Controlled descent for sitting Skilled Intervention/Details: Stand->Sit: Cues for positioning with recliner and using arms to help with controlled descent into chair Bed-Chair Transfer Cidra Level: Bed<->Chair: maximum assist (25% patient effort) [...] appropriately position with chair. Outcome Score(s): CURRENT [facility] Daily Activity Inpatient Short Form Putting on/Taking Off Lower Body Clothin - Total Assistance Bathin - A Lot of Assistance Toiletin - Total Assistance Putting on/Taking Off Upper Body Clothin - A Lot of Assistance Groomin - A Lot of Assistance Eatin - Total Assistance CURRENT [facility] Activity Raw Score: 9 CURRENT -[facility] Activity Functional Limitation/Modifier: 79.59% Currently Impaired [...] - 08/08/2024 1:50 PM EDT I, Teagan Cronni OT, provided direct guidance in the room during this patient care session. I attest that all documentation reflects accurate skilled clinical decisions and judgements. * Bella Cardenas APRN-GARRETT - 08/08/2024 7:21 AM EDT NEUROVASCULAR STROKE SERVICE Daily Progress Note IDENTIFYING INFORMATION Lindsay Acuna MR# [id number] 08/08/2024 HISTORY OF PRESENT ILLNESS Lindsay Acuna is a 78 y.o. female with PMH significant for CAD, HTN, HLD, T2DM, Afib (on Eliquis, although patient reports she has not been taking it) who presents with L hemiplegia, slurred speech. LKW 0915 on 08/02, later found down with slurred speech and L hemiplegia. She presented to [facility] and was seen on Telestroke, NIHSS 12. [...] 2b revascularization. INTERVAL HISTORY 08/05: [place] [facility] [place] as above -Rate controlled on metoprolol Dysphagia: -GLUE MILL OPERATOR following -NPO, DHT + TF -Failed [...] Lindsay Acuna will likely be discharged to [facility] when medically ready Bella Cardenas, JASIEL-TOBACCO STEMMER 08/08/2024 2:53 PM VITAL SIGNS Temp: [97.4 [...] for specific therapeutic recommendations, please see the train brake operator report of the speech pathologist. Examination [...] bed availability Current Referrals and Status 1. [facility] notified student confirming after call with Patient's daughter that [facility] is facility of choice. Facility reserved. AVS/DAVE updated. Chela Snyder Social Work Student Available by Secure Chat Cosigned by OEWN Keller at 08/08/2024 7:39 AM EDT * [...] and patient's spouse are agreeable to [facility] as facility of choice, and Gisela is agreeable to [facility] as well. Updated SW student. Simin Resendez, RN, BSN Clinical Engine Assembler [facility] * Chela Hannon - 08/07/2024 2:08 PM EDT Placement Plan SPINE SUPERVISOR met with Patient and spouse at bedside to discuss facility choice. Spouse mentioned that [facility] was first choice, though SPINE SUPERVISOR provided update that [facility] could not accept after reviewing. SPINE SUPERVISOR reviewed other IPR options with Spouse, who reports that [facility] would be facility of choice. Spouse discussed with daughter Gisela via phone, who is in agreement but requestsa return call. SPINE SUPERVISOR notified CCM. Chela Snyder Social Work Student Available by Secure Chat Cosigned by OWEN Keller at 08/07/2024 2:11 PM EDT * Bella Cardenas, JASIEL-TOBACCO STEMMER - 08/07/2024 6:54 AM EDT NEUROVASCULAR STROKE SERVICE Daily Progress Note IDENTIFYING INFORMATION Lindsay Acuna MR# [id number] 08/07/2024 HISTORY OF PRESENT ILLNESS Lindsay Acuna is a 78 y.o. female with PMH significant for CAD, HTN, HLD, T2DM, Afib (on Eliquis, although patient reports she has not been taking it) who presents with L hemiplegia, slurred speech. LKW 0915 on 08/02, later found down with slurred speech and L hemiplegia. She presented to [facility] and was seen on Telestroke, NIHSS 12. [...] 2b revascularization. INTERVAL HISTORY 08/05: Transfer to ID. [facility] [place] as above -Rate controlled on metoprolol Dysphagia: -GLUE MILL OPERATOR following -NPO, DHT + TF -Failed [...] Lindsay Acuna will likely be discharged to [facility] when medically ready Bella Cardenas APRN-TOBACCO STEMMER 08/07/2024 3:06 PM VITAL SIGNS Temp: [97.5 [...] for specific therapeutic recommendations, please see the train brake operator report of the speech pathologist. Examination [...] authorization, transportation Current Referrals and Status 1. [facility]: Available 2. [facility]: Available 3. [facility]: Available (pending PEG or diet and their MD requested aspirin started before discharge) 4. [facility]: Available 5. [facility]: Unavailable, out of network 6. [facility]: Unavailable, Incorrect Level of Care 7. [facility] IPR: sent Met with patient and patient's spouse, Ike, at bedside to provide choice list. Ike called patient's daughter, Gisela Acuna, to discuss as well. Gisela requested information on private pay at [facility], messaged [facility] liaison and then provided information to [...] further questions. Simin Resendez RN, BSN Clinical Engine Assembler [facility] * Florinda Velasquez, PT - 08/06/2024 [...] minutes Mobility Assessment/Intervention: Supine to Sit Mobility Cidra Level: Supine->Sit: moderate assist (50% patient effort) Bed Features/Set-up: Supine->Sit: Head of bed elevated, Use of bed rail Skilled Rationale: Positioning, Sequencing Skilled Intervention/Details: Supine->Sit: step by step cues for sequencingg Transfer Assessment/Intervention: Sit to Stand Transfer Cidra Level: Sit->Stand: moderate assist (50% patient effort) [...] left UE during transitional movements Bed-Chair Transfer Cidra Level: Bed<->Chair: moderate assist (50% patient effort) Physical Assist: Bed<->Chair: 2 person assist Assistive Device: Bed<->Chair: gait belt, hand held assist Skilled Rationale: Positioning, Hand placement, Verbal cues, Sequencing Skilled Intervention/Details: Bed<->Chair: Pt educated in bed to BSC commode transfer x 2-3 steps with cues for LE sequencing, left LE weakness requiring intermittent blocking Gait/Functional Mobility Assessment/Intervention: Gait Assessment Cidra Level: Gait: (mod/max) Physical Assist: Gait: 2 [...] prevent buckling. Stairs Assessment/Intervention: Outcome Score(s): CURRENT [facility] Basic Mobility Inpatient Short Form Turning [...] with a railin - Total Assistance CURRENT [facility] Mobility Raw Score: 9 CURRENT [facility] Mobility Functional Limitation: 81.38% Impaired in [...] Discharge Summary. * Nimesh Balderrama [facility] - 08/06/2024 1:42 PM EDT Department of Pharmacy Admission Medication Reconciliation Note Patient: Lindsay Acuna Room/Bed: 1043/A I have reviewed the patient's home medication list with the following sources Dispense Report. The home medication list status is: complete. All changes to the home medication list have been updated in [facility]. Updated DATA CLERK Med List: Prior to Admission Medications Prescriptions [...] further questions. Name: Nimesh Balderrama [facility] Phone #: [phone] Date/Time: 08/06/2024 1:42 PM Time Spent: 10 [...] noted Mobility Assessment/Intervention: Supine to Sit Mobility Cidra Level: Supine->Sit: moderate assist (50% patient effort) [...] completion. Transfer Assessment/Intervention: Sit to Stand Transfer Cidra Level: Sit->Stand: (x 1 trial from EOB [...] and kyphotic posture. Stand to Sit Transfer Cidra Level: Stand->Sit: moderate assist (50% patient effort) Assistive Device: Stand->Sit: gait belt (Arm and arm assist.) Skilled Rationale: Cues for increased safety, Initiation and execution of task, Technique of activity, Controlled descent for sitting, Ischial assist, Arm in arm, Tactile cues, Verbal cues, Hand placement, Sequencing, Positioning Bed-Chair Transfer Cidra Level: Bed<->Chair: moderate assist (50% patient effort) [...] with left LE). Functional Mobility: Functional Mobility Cidra Level: Functional Mobility/Gait: (Moderate-max assistance) Physical Assist: [...] overall decreased insight/awareness intodeficits. Outcome Score(s): CURRENT [facility] Daily Activity Inpatient Short Form Putting on/Taking Off Lower Body Clothin - Total Assistance Bathin - A Lot of Assistance Toiletin - Total Assistance Putting on/Taking Off Upper Body Clothin - A Lot of Assistance Groomin - A Lot of Assistance Eatin - Total Assistance ([place].) CURRENT [facility] Activity Raw Score: 9 CURRENT [facility] Activity Functional Limitation/Modifier: 79.59% Currently Impaired [...] Occupational Therapy Discharge Summary. * Taran Traore, JASIEL-TOBACCO STEMMER - 08/06/2024 7:49 AM EDT NEUROVASCULAR STROKE SERVICE Daily Progress Note IDENTIFYING INFORMATION Lindsay Acuna MR# [id number] 08/06/2024 HISTORY OF PRESENT ILLNESS Lindsay Acuna is a 78 y.o. female with PMH significant for CAD, HTN, HLD, T2DM, Afib (on Eliquis, although patient reports she has not been taking it) who presents with L hemiplegia, slurred speech. LKW 0915 on 08/02, later found down with slurred speech and L hemiplegia. She presented to [facility] and was seen on Telestroke, NIHSS 12. [...] 2b revascularization. INTERVAL HISTORY 08/05: Transfer to ID. MBS tomorrow 08/06: Failed MBS. Increased lopressor. [...] as above -Rate controlled on metoprolol Dysphagia: -GLUE MILL OPERATOR following -NPO, DHT + TF -Failed [...] Lindsay Acuna will likely be discharged to [facility] when medically ready Taran Traore APRN-TOBACCO STEMMER 08/06/2024 1:43 PM VITAL SIGNS Temp: [96.5 [...] for specific therapeutic recommendations, please see the train brake operator report of the speech pathologist. Examination [...] Progress Note IDENTIFYING INFORMATION Lindsay Acuna MR# [id number] 08/05/2024 HISTORY OF PRESENT ILLNESS Lindsay Acuna is a 78 y.o. female with PMH significant for CAD, HTN, HLD, T2DM, Afib (on Eliquis, although patient reports she has not been taking it) who presents with L hemiplegia, slurred speech. LKW 0915 on 08/02, later found down with slurred speech and L hemiplegia. She presented to [facility] and was seen on Telestroke, NIHSS 12. [...] 2b revascularization. INTERVAL HISTORY 08/05: Transfer to [facility] tomorrow PHYSICAL EXAM Gen: awake, [...] as above -Rate controlled on metoprolol Dysphagia: -GLUE MILL OPERATOR following -NPO, DHT + TF -MBS tomorrow HLD, POA: -Atorvastatin 40 mg daily CAD, POA: -Hold ASA for 7 days due to ICH T2DM, POA: -SSI regular + accuchecks CKD Stage 3A, POA: Baseline Cr 1.3 -Avoid nephrotoxins, monitor Hypothyroidism, POA: -Continue home levothyroxine 75 mcg daily Disposition: Lindsay Acuna will likely be discharged to [facility] when medically ready Taran Traore APRN-TOBACCO STEMMER 08/05/2024 2:19 PM VITAL SIGNS Temp: [97.8 [...] on the below outcome measures/assessment score(s), and GLUE MILL OPERATOR clinical judgment, discharge destination recommendation is: [...] Impaired cognitive skills limiting saf ety/insight Acute GLUE MILL OPERATOR Outcomes Tracking Communicate basic wants and [...] oropharyngeal swallow function to most appropriately guide GLUE MILL OPERATOR plan of care. Of note, patient [...] Currentdeficits impact her safety and independence. Ongoing GLUE MILL OPERATOR services are warranted. Subjective information: Awake, [...] O2 Device: room air (08/05 0830) Acute GLUE MILL OPERATOR Goals Plan of Care by Queta Gardner, GLUE MILL OPERATOR at 08/05/2024 11:49 AM Version 1 [...] oropharyngeal swallow function to most appropriately guide GLUE MILL OPERATOR plan of care Outcome: Ongoing Problem: GLUE MILL OPERATOR - Cognition Goal: Orientation Log - [...] better assess deficits and most appropriately guide GLUE MILL OPERATOR plan of care Outcome: Met Tx: [...] for next session: 08/05: Good candidate; FERNANDO GLUE MILL OPERATOR Outcomes: GLUE MILL OPERATOR Outcomes / Standardized Measures Score The [...] wrist restraints, RN aware Needs in reach. GLUE MILL OPERATOR Evaluation and Treatment Time Speech Therapy - Individual 17181: 8 Swallowing Dysfunction Treatment 50494: 9 Upon discontinuation of Acute Care Speech Therapy Services or patient discharge from the hospital this note represents the current Speech Therapy Discharge Summary * Chela Hannon - 08/05/2024 10:37 AM EDT Placement Plan Expected Discharge Date: TBD Referred Level of Care: IPR Barriers: medical stability, bed availability Current Referrals and Status 1. [facility]- sent; denied (Patient is OON) 2. [facility]- sent 3. [facility]- sent 4. [facility]- sent 5. [facility]- sent 6. [facility] SPINE SUPERVISOR met with Patient and Spouse at bedside to discuss discharge planning. Patient and spouse were agreeable to SW visit. SPINE SUPERVISOR discussed therapy recommendations with Spouse for Patient to go to [facility] at discharge. Spouse is agreeable to a referral being sent to [facility]. Referral sent. Spouse requested to speak to SW about assessing Patient for dementia. SPINE SUPERVISOR and bedside RN encouragedSpouse to discuss with Patient's outpatient provider. Chela Snyder, Social Work Student Available by Secure Chat Cosigned by OWEN Keller at 08/05/2024 11:22 AM EDT * Savana Leung, RD - 08/05/2024 10:10 AM EDT NUTRITION ASSESSMENT Nutrition Recommendations and Plan of Care: 1. Diet: NPO. Advancement per team/GLUE MILL OPERATOR recommendation 2. Ordered TF: Glucerna 1.5 [...] time. Per team, pt failed bedside swallow. GLUE MILL OPERATOR consulted for swallow eval. Past History [...] [facility] Center Pt without significant weight change DATA CLERK. Tmax: 97.8*F BP: (!) 173/94 Pulse (Heart [...] proximal second portion of the duodenum. BM: DATA CLERK Urine: 725mL Skin: Raghu Score: 13 Active Wounds: Wound Sheath Site 08/02/24 1500 Right Radial (3) Wound Abrasion 08/02/24 2109 Left;Upper Face (3) Edema- None Estimated Nutrition Needs: Based on IBW (61.4kg) Estimated Kcals Needs: 3724-4010 kcals (25-30kcals/kg) Estimated Pro Needs: 74-92g Pro (1.2-1.5g/kg) Estimated Fluid Needs: Per MD Nutrition Focused Physical Exam Completed?: completed Subcutaneous Fat Loss: Orbital Region (Orbital Fat Pads): WDL Cheek Region (Buccal Fat Pads): WDL Upper Arm Region (Triceps): WDL Thoracic and Lumbar Region (Ribs, Lower Back, Midaxillary Line): WDL Muscle Wasting: Mormonism Region (Temporalis Muscle): deferred (lac over eyebrow) [...] (2012) ELVIRA Ho, RD, LD, CNSC Pager: [phone] * Rashad Rg MD - 08/05/2024 9:42 AM EDT 78F admitted to the [facility] with Rt M1 occlusion s/p TICI2b revascularization. [...] critical care time 31min. * Shanna Russ, JASIEL-TOBACCO STEMMER - 08/05/2024 7:20 AM EDT NEUROCRITICAL CARE [...] Visual richards intact to confrontation. PERRL. 3mm global marketing manager III, IV and : EOMI. No nystagmus. [...] aggressive pulm edema, OOB as toleratd - [id number], encourage pulmonary toileting Cards: Essential HTN HLD [...] TUBE FEEDING with meds (per DHT) - [place] Swallow Screening Result: failed=NPO Bowel regimen: - Last Bowel Movement: (prior to admission) - Senna 17.2 mg Q12H, miralax BID, suppository PRN Stress ulcer prophylaxis: - none Dysphagia - DHT placed - GLUE MILL OPERATOR following; NPO continue following, on TF [...] subcutaneous heparin [x] Lines Lesly: n/a Marina: remove Rectal tube: n/a Enteral [...] the assigned neurocritical care provider (resident, fellow, TUNNEL KILN REPAIRER, orPA) or page/call the corresponding number below NCC1 (Beds [phone]): [place] # [phone], pager #[phone] NCC2 (Beds 7508-8064, 12 Nando, and overflow): [place] #: [phone], pager #[phone] * Florinda Velasquez, PT - 08/04/2024 1:36 [...] noted Mobility Assessment: Supine to Sit Mobility [place] Level: Supine->Sit: moderate assist (50% patient effort) [...] EOB Transfer Assessment: Sit to Stand Transfer [place] Level: Sit->Stand: moderate assist (50% patient effort) Physical Assist: Sit->Stand: 2 person assist Assistive Device: Sit->Stand: gait belt, hand held assist Skilled Rationale: Positioning, Sequencing, Hand placement, Verbal cues Skilled Intervention/Details: Sit->Stand: x 1 from EOB Bed-Chair Transfer [place] Level: Bed<->Chair: moderate assist (50% patient effort) Physical Assist: Bed<->Chair: 2 person assist Assistive Device: Bed<->Chair: gait belt, hand held assist Skilled Rationale: Positioning, Sequencing, Hand placement, Verbal cues Skilled Intervention/Details: Bed<->Chair: x 2-3 steps from bed to chair Gait/Functional Mobility: Stairs: Outcome Score(s): CURRENT [facility] Basic Mobility Inpatient Short Form Turning [...] with a railin - Total Assistance CURRENT [facility] Mobility Raw Score: 10 CURRENT [facility] Mobility Functional Limitation: 76.75% Impaired in [...] Edema: Mobility Assessment: Supine to Sit Mobility [place] Level: Supine->Sit: moderate assist (50% patient effort) Physical Assist: Supine->Sit: 2 person assist Bed Features/Set-up: Supine->Sit: Head of bed elevated Skilled Rationale: Positioning, Hand placement, Verbal cues, Technique of activity Transfer Assessment: Sit to Stand Transfer [place] Level: Sit->Stand: moderate assist (50% patient effort) Physical Assist: Sit->Stand: 2 person assist Assistive Device: Sit->Stand: gait belt, hand held assist Skilled Rationale: Positioning, Hand placement, Verbal cues, Technique of activity Stand to Sit Transfer [place] Level: Stand->Sit: moderate assist (50% patient effort) Physical Assist: Stand->Sit: 2 person assist Assistive Device: Stand->Sit: hand held assist Skilled Rationale: Positioning, Hand placement, Verbal cues, Arm in arm, Controlled descent for sitting Bed-Chair Transfer [place] Level: Bed<->Chair: moderate assist (50% patient effort) [...] assessment and plan as documented by the TUNNEL KILN REPAIRER with my changes/additions added. Patient is [...] ICH x 7 days - Statin - PT/OT/GLUE MILL OPERATOR evaluation Pulmonary: No acute issues, appears [...] and other supportive care as per the TUNNEL KILN REPAIRER note from the same day This [...] [facility] services [facility] the [facility] today [facility] and other care providers. Management of the above was performed. My time managing this critically ill patient included review of interval history, laboratories, radiology and cons ultation reports; performing a physical examination; discussing the patient with the multi-disciplinary team and managing life sustaining therapies to prevent imminent clinical deterioration. Richard Mejia MD Neurocritical Care Attending * Balbir Mccoy, SERVICE GREETER-TOBACCO STEMMER - 08/04/2024 7:44 AM EDT NEUROCRITICAL CARE [...] Visual richards intact to confrontation. PERRL. 3mm global marketing manager III, IV and : EOMI. No nystagmus. [...] SpO2 >92%; wean FiO2 as tolerated - [id number], encourage pulmonary toileting Cards: Essential HTN HLD [...] TUBE FEEDING with meds (per [facility]) - [place] Swallow Screening Result: failed=NPO Bowel regimen: - Last Bowel Movement: (prior to admission) - Senna 17.2 mg Q12H, miralax at bedtime Stress ulcer prophylaxis: - none Dysphagia - DHT placed - GLUE MILL OPERATOR following - Tube feed: Vital AF [...] not indicated DVT: subcutaneous heparin [x] Lines [place]: n/a Marina: inserted 08/02, (indication: strict I&O [...] the assigned neurocritical care provider (resident, fellow, TUNNEL KILN REPAIRER, orPA) or page/call the corresponding number below NCC1 (Beds [phone]): [place] # [phone], pager #[phone] NCC2 (Beds 5537-5009, 12 Nando, and overflow): [place] #: [phone], pager #[phone] * Rafael Garcia MD - 08/03/2024 2:16 PM EDT NEUROVASCULAR Consult Daily Progress Note IDENTIFYING INFORMATION Lindsay Acuna MR# [id number] 08/03/2024 HISTORY OF PRESENT ILLNESS Lindsay Acuna is a 78 y.o. female with PMH significant for CAD, HTN, HLD, T2DM, Afib (on Eliquis, although patient reports she has not been taking it) who presents with L hemiplegia, slurred speech. She was last seen normal by her at 0915, later found down with slurred speech and L hemiplegia. She presented to [facility] and was seen on Telestroke, NIHSS 12. [...] L hemiplegia. She presented to [facility] and was seen on Telestroke, NIHSS 12. [...] workup. Delbert Kasper MD * Nohelia Oconnell, GLUE MILL OPERATOR - 08/03/2024 12:09 PM EDT Acute Care GLUE MILL OPERATOR Speech/Language/Cognitive Evaluation Best mode of Communication: spoken language (regular speech) Discharge Recommendations: Based on the below outcome measures/assessment score(s) and GLUE MILL OPERATOR clinicaljudgment, discharge destination recommendation is: (Skilled speech therapy services at next level of care) Barriers to discharge home: Cognitive impairments that impact safety and independence Supporting factors for discharge setting: Impaired swallow function limiting nutritional status andsafety with oral intake Acute GLUE MILL OPERATOR Outcomes Tracking Communicate basic wants and [...] L hemiplegia. She presented to [facility] and was seen on Telestroke,NIHSS 12. CTH [...] 0 Asthenia (A): 0 Strain (S): 0 GLUE MILL OPERATOR Outcomes / Standardized Measures Score The [...] unable to respond. Total Score: 12 Acute GLUE MILL OPERATOR Goals Plan of Care by Nohelia Oconnell GLUE MILL OPERATOR at 08/03/2024 11:25 AM Version 1 of 1 Problem: Dysphagia Goal: Ongoing Assessment - Patient will participate in ongoing assessment by accepting various PO consistency trials with appropriate participation/oral acceptance and no significant respiratory complications to determine readiness for diet advancement Outcome: Ongoing Problem: GLUE MILL OPERATOR - Cognition Goal: Orientation Log - [...] better assess deficits and most appropriately guide GLUE MILL OPERATOR plan of care Outcome: Ongoing Speech [...] of session: bed alarm Needs in reach. GLUE MILL OPERATOR Evaluation and Treatment Time Speech Eval - Sound Production W/Lang Comp and Exp 07109: 11 Swallowing Eval 84996: 10 Upon discontinuation of Acute Care Speech [...] on the below outcome measures/assessment score(s) and GLUE MILL OPERATOR clinicaljudgment, discharge destination recommendation is: Deferred to PT/OT recomendations related to mobility Current therapy frequency recommendation in acute care: Swallow Therapy Frequency: 5 times a week Acute GLUE MILL OPERATOR Outcomes Tracking Communicate basic wants and [...] L hemiplegia. She presented to [facility] and was seen on Telestroke,NIHSS 12. 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 Prior GLUE MILL OPERATOR history: No prior speech history per [...] and Liquids Trialed Modality Amount Ice Teaspoon, GLUE MILL OPERATOR-fed 3x Thin Teaspoon 3x Oral Phase [...] Patient presents with presumed pharyngeal phase impairments. Alvord Swallow Screen: (administered by: ZOE) [place] Swallow Screening Screening Exclusion Criteria: none, continue [...] Ok for ice chips with RN supervision. GLUE MILL OPERATOR will continue to follow for ongoing dysphagia management. Patient Education/Instruction Learners: Patient Education provided: Dysphagia recommendation risk: benefit analysis, Role of this discipline Teaching method: Verbal Education/Instruction Learner response: Needs review Learning preferences: Auditory Learning considerations: Cognition Plan for next session: 08/03: Good Prognosis, ongoing dysphagia management to determine readiness for diet advancement vs instrumental. Acute GLUE MILL OPERATOR Goals Plan of Care by RIKI Hayes at 08/03/2024 11:25 AM Version 1 of 1 Problem: Dysphagia Goal: Ongoing Assessment - Patient will participate in ongoing assessment by accepting various PO consistency trials with appropriate participation/oral acceptance and no significant respiratory complications to determine readiness for diet advancement Outcome: Ongoing Problem: GLUE MILL OPERATOR - Cognition Goal: Orientation Log - [...] better assess deficits and most appropriately guide GLUE MILL OPERATOR plan of care Outcome: Ongoing Speech Language Pathologist: RIKI Hayes, BCS-S Board Certified Specialist in Swallowing and Swallowing Disorders Available via [employer] Chat Time In: 1130 Time Out: 1151 Total Visit Time: 21 minutes Total Treatment Time (skilled, billable minutes): 21 minutes Non-billable assistance during session: none Assisted by during session: Patient's PPE used during patient interaction: gloves Patient location/status at end of session: bed with head of bed elevated Patient alarms at end of session: bed alarm Needs in reach. GLUE MILL OPERATOR Evaluation and Treatment Time Speech Eval - Sound Production W/Lang Comp and Exp 63617: 11 Swallowing Eval 43098: 10 Upon discontinuation of Acute Care Speech Therapy Services or patient discharge from the hospital this note represents the current Speech Therapy Discharge Summary * Richard Mejia MD - 08/03/2024 10:30 AM EDT I have independently seen and examined the patient on 08/03/24. I agree with the history, examination, assessment and plan as documented by the TUNNEL KILN REPAIRER with my changes/additions added. Patient is [...] the setting of ICH - Statin - PT/OT/GLUE MILL OPERATOR evaluation Pulmonary: No acute issues, appears [...] and other supportive care as per the TUNNEL KILN REPAIRER note from the same day This [...] care services [facility] the patient today [facility] and other care providers. Management [...] with assistance from spouse Care Management Plan SPINE SUPERVISOR met with Patient and Spouse at bedside to complete Initial Assessment. They were agreeable to SW visit. Patient was lethargic though able to answer some short questions. Patient consented to Spouse assisting with assessment. Spouse/Patient report that Patient has never completed a HCPOA. They expressed interest, and SPINE SUPERVISOR will follow to complete document when Patient is more alert and oriented. Spouse reports himself and Patient live in a ranch-style home with strong supports from their community, including 2 neighbors that have assisted at this time. He noted that himself and Patient recently returned from a visit to [facility] for their anniversary. Spouse reports that their 2 children will be visiting soon. SPINE SUPERVISOR explained SW role and offered resources. Spouse [...] Name and Contact information: Ike Acuna P: [phone] Adult Child(jj), List All Adult Children: Yes Name and Contact information: Donnell Acuna P: [phone]; Nathen Acuna P: [phone] Would you like to add additional adult [...] for Advance Care Planning? : Patient Agreeable (SPINE SUPERVISOR to follow for HCPOA completion when Patient is more alert and oriented) Medication Management Does the patient have prescription insurance coverage? : Yes Is the patient on Anticoagulation? : Yes (Per chart review, Patient is on anticoagulation but has not been taking it (does not recall the last time she took a dose)) Provider or Clinic that manages Anticoagulation?: (unspecified at this time) [facility] [address] [place] [phone] [phone] [address] Living Environment and Support System Is the patient from a facility or skilled nursing?: No Living Environment: House ("1 bedroom ranch") Patient Caregiving Responsibilities: Self Patient-identified caregiver/support network: Family, Friends, Neighbors, Sabianist Who does the patient identify as a [...] themselves at home? : Unable to assess Manufacturing Technology Analyst Does the patient or teleservices representative express financial concerns? : No Chela Snyder Social Work Student Available by Secure Chat Cosigned by OWEN Keller at 08/03/2024 11:20 AM EDT * Balbir Mccoy, SERVICE GREETER-TOBACCO STEMMER - 08/03/2024 7:40 AM EDT NEUROCRITICAL CARE [...] Visual richards intact to confrontation. PERRL. 3mm global marketing manager III, IV and : EOMI. No nystagmus. [...] SpO2 >92%; wean FiO2 as tolerated - [id number], encourage pulmonary toileting Cards: Essential HTN HLD [...] - Bowel regimen: - Last Bowel Movement: (DATA CLERK) - Senna, miralax Stress ulcer prophylaxis: - none Dysphagia - DHT placed - GLUE MILL OPERATOR following - Tube feed: Vital AF [...] the assigned neurocritical care provider (resident, fellow, TUNNEL KILN REPAIRER, orPA) or page/call the corresponding number below NCC1 (Beds [phone]): [place] # [phone], pager #[phone] NCC2 (Beds 0782-2601, 12 Nando, and overflow): [place] #: [phone], pager #[phone] * Nando Caceres MD - 08/03/2024 6:00 [...] nccu Neurosurgery signing off Please page [phone] ([phone]) with questions Complexity. Hypocalcemia - Continue to [...] any questions, Name: Andreas Ga RPH Phone: [phone] Date/Time: 08/02/2024 10:57 PM * Richard Mejia MD - 08/02/2024 6:01 PM EDT I have independently seen and examined the patient on 08/02/24. I agree with the history, examination, assessment and plan as documented by the TUNNEL KILN REPAIRER with my changes/additions added. Patient is [...] to determine stroke burden - Statin - PT/OT/GLUE MILL OPERATOR evaluation Pulmonary: No acute issues, appears [...] stage 3a - Maintain euvolemia GI/Nutrition: - GLUE MILL OPERATOR evaluation - Bowel regimen to prevent [...] and other supportive care as per the TUNNEL KILN REPAIRER note from the same day This [...] Neurocritical Care Attending documented [facility] this [facility] Consult note* Niru Koch MD - 08/10/2024 [...] today. Consent obtained by at bedside. - GLUE MILL OPERATOR eval: none - RD eval: none [...] dependence ASSESSMENT/RECOMMENDATIONS: - primary team feels that middle or intermediate school principal enteric nutrition is warranted in s/o CVA. Patient is appropriate for endoscopic PEG placement. Consent obtained from at bedside. - we will tentatively plan for EGD for PEG placement 08/09 as add on case. See pre procedure recommendations below. For PEG: - Ancef ordered (1 gm if patient is <80 kg; 2 gm if patient is >80 kg) as "air conditioning manager to the procedure"). - Please make NPO [...] Hepatology, and Nutrition Clinical Fellow PGY-4 Pager: [phone] For urgent/stat calls 5pm to 7am or all day on the weekend, please page the on- call GI fellow on WebExchange. IM Consult Serv GHN --> [facility] Main STAT/NEW GI consults For follow up questions regarding this patient, contact the IBD consults fellow or DAHLIA on WebRegenesis Biomedicalchange. IM Consult Serv GHN --> [facility] [...] and medical decisions as outlined. Need for jail non-oral enteric nutrition per primary team. We will facilitate this with planned PEG tube placement. Before placement, non-GI management of TF should be established to avoid delays. David Woods M.D. 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 Prema Ramos M.D. Percussion Instrument Tuner Department of Neurosurgery [facility] [place] * Taran Zamudio León, SERVICE GREETER-TOBACCO STEMMER - 08/02/2024 2:44 PM EDT Neurovascular Evaluation [...] L hemiplegia. She presented to [facility] and was seen on Telestroke, NIHSS 12. [...] solution Intravenous Continuous PRN Bebo Barboza APRN- FACING MACHINE OPERATOR New Bag at 08/02/24 1507 Scheduled Meds: [...] protrudes midline Motor: L hemiplegia Reflexes: Coordination: Lycmfh-ch-bdrw intact on the R, unable to test [...] Continuous telemetry -PT, OT, Speech and social sciences lecturer consults Other problems: Complexity. Any conditions listed [...] L hemiplegia. She presented to [facility] and was seen on Telestroke, NIHSS 12. [...] in this encounterOSU [facility] Procedure note* Tanja Hunter, GLUE MILL OPERATOR - 08/06/2024 9:32 AM EDTAssociated Order(s): SPEECH [...] the below outcome measures/assessment score(s), MBS, and GLUE MILL OPERATOR clinical judgment, discharge destination recommendation is: IP Rehab Facility. Patient demonstrates good candidacy for discharge to: IRF. Additional supporting factors include: Impaired swallow functionlimiting nutritional status and safety with oral intake. Acute GLUE MILL OPERATOR Outcomes Tracking Communicate basic wants and [...] L hemiplegia. She presented to [facility] and was seen on Telestroke, NIHSS 12. [...] Thin Barium: teaspoon x2, straw x2 Varibar [place] Barium: straw x1 Varibar Thin Honey Barium: [...] recommend NPO and nonoral meds. Ongoing skilled GLUE MILL OPERATOR services indicated to address deficits and [...] Therapeutic Interventions Met: yes, treatment indicated Acute GLUE MILL OPERATOR Goals Plan of Care by Tanja Hunter, GLUE MILL OPERATOR at 08/06/2024 9:33 AM Version 1 of 1 Problem: Dysphagia Goal: MBS - Patient will participate in Modified Barium Swallow (MBS) Study to objectively assess oropharyngeal swallow function to most appropriately guide GLUE MILL OPERATOR plan of care Outcome: Met Goal: [...] Treatment Time (skilled, billable minutes): 20 minutes GLUE MILL OPERATOR Evaluation and Treatment Time MBS/Motion Fluoroscopic Swallowing Eval 58908: 20 Speech Language Pathologist: RIIK Gonzales Time In: 931 Time Out: 951 Total Visit Time: 20 minutes Total Treatment Time (skilled, billable minutes): 20 minutes Non-billable assistance during session: DANIEL Assisted by during session: RA Melendez PPE used during patient interaction: gloves Patient location/status at end of session: bed with head of bed elevated Patient alarms at end of session: none altered (RN present) GLUE MILL OPERATOR Evaluation and Treatment Time MBS/Motion Fluoroscopic Swallowing Eval 47158: 20 Upon discontinuation of Acute Care Speech Therapy Services or patient discharge from the hospital this note represents the current Speech Therapy Discharge Summary documented in this encounterOSU [facility] Hospital Discharge instructions* Discharge Instructions* Jhoaan Casarez APRN-TOBACCO STEMMER - 08/06/2024 8:38 AM EDT Please take [...] you at all times. Stroke Education: visit [email or web address] What are the most common symptoms of [...] all ordered medications [x] Avoid non-prescription or [id number]-[id number] medication not cleared by your physician [x] [...] may call the neurovascular doctors office at [phone], if you have questions Mon-Fri between 8:30 am and 4:30 pm. - For off hours or the weekend you may call the office or the hospital wash oil cooler operator at and ask for the stroke resident air conditioning manager to be paged. - If you have any other questions or needs, please call Aniyah DOSS, RN, Stroke Nurse Navigator at [phone] Mon-Fri between 7:00am and 3:00pm. - Additional assistance may be found by reaching out to our Case Management Office at [phone]. *In the event of an Emergency: If you have a physical or psychiatric emergency call 911 or go to your local emergency department. You should also call your outpatient provider's emergency number. Other reference numbers: [facility] Intake Office at [phone]; [facility] at 157-737-0267; or Suicide Prevention Hotline at 936-114-0574. *Helpful phone numbers: Free Crisis Hotline: 5-838-367-TALK ( ) Suicide Hotline: 525.123.4583 Seniors Suicide Hotline: 508.637.7409 [facility] Youth: 909.815.1764 Mental Health of [place]: 556.831.7339 (free counseling) [facility] Access Hotline: 846-322-WGBQ (454-266-9461) 24-hour crisis text hotline: Text the word "4hope" to 189-215 for crisis support. Texting this number is [...] Medicaid Applications over the phone. Please call 5-579-690[facility] (1035) and apply over the phone or apply online at www.benefits.[place].gov. Monday-Monday 8am-12pm noon. Medication Assistance Programs [employer] members can buy 100+ common prescriptions for FREE, $3 or $6. Annual membership is $36 for individuals and $72 for families (up to 6 people, including pets). Sign up online or enroll at your nearest pharmacy! [employer], web site can provide a significant number of coupons for medications at a much lower raymundo. [place] Department of Aging The Department of Aging administers programs and services to meet the needs of older [place]. Services and resources offered per [facility] may include transportation, housekeeping, meals and nutrition, personal care, case management, safety monitoring, home medical equipment, legal services, certified financial planner, health and wellness, education, caregiver support, respite care, etc. Call to be connected to the [facility] agency on aging serving your community or visit aging.[place].gov/find-services. Request a consultation with a community resource expert at ltssi.age.[place].gov/ [facility] Stroke Support The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 2024 12:46pm Do you have a Healthcare Power of Bait Painter? No August 02, 2024 12:46pm Date Activated [...] patient had a polyp identified by on {time:75843}. Biopsies {are/were w not:9034} taken. The patient's usual bowel pattern is {bowel pattern:74897}. Bowel movements {bowel changes:91388} . {abd pain:09410}. The patient has noted{bleeding with BM:81088}. The patient {does/do/not:36019} have a family history of colon polyps. The patient {does/do/not:49852} have a family history of colon cancer. [...] WORK September 10, 2024 5:0 0am AFIB ([facility]) October 02, 2024 9:29a m [...] WORK October 01, 2024 5:00a m AFIB ([facility]) October 02, 2024 9:29a m LAB WORK October 08, 2024 5:00a m MONTHLY EXAM October 09, 2024 5:45p m SENIOR CARE LAB WORK October 15, 2024 5:0 0am SENIOR CARE LAB WORK October 22, 2024 5: 00am SENIOR CARE LAB WORK October 23, 2024 5: 00am SENIOR CARE LAB WORK October 29, 2024 5: 00am [...] WORK October 01, 2024 5:00a m AFIB ([facility]) October 02, 2024 9:29a m LAB WORK October 08, 2024 5:00a m MONTHLY EXAM October 09, 2024 5:45p m SENIOR CARE LAB WORK October 15, 2024 5:0 0am SENIOR CARE LAB WORK October 22, 2024 5: 00am SENIOR CARE LAB WORK October 23, 2024 5: 00am SENIOR CARE LAB WORK October 29, 2024 5: 00am NEW CONCERN October 30, 2024 6:00 pm SENIOR CARE LAB WORK November 12, 2024 5:0 0am [...] MONTHLY EXAM October 09, 2024 5:45p m SENIOR CARE LAB WORK October 15, 2024 5:0 0am SENIOR CARE LAB WORK October 22, 2024 5: 00am NEW CONCERN October 22, 2024 12:4 5pm SENIOR CARE LAB WORK October 23, 2024 5: 00am SENIOR CARE LAB WORK October 29, 2024 5: 00am NEW CONCERN October 30, 2024 6:00 pm SENIOR CARE LAB WORK November 12, 2024 5:0 0am [...] 01, 2024 5:00a m AFIB ([facility]) October 02, 2024 9:29a m LAB WORK October 08, 2024 5:00a m MONTHLY EXAM October 09, 2024 5:45p m SENIOR CARE LAB WORK October 15, 2024 5:0 0am SENIOR CARE LAB WORK October 22, 2024 5: 00am NEW CONCERN October 22, 2024 12:4 5pm SENIOR CARE LAB WORK October 23, 2024 5: 00am SENIOR CARE LAB WORK October 29, 2024 5: 00am FU VISIT October 29, 2024 7:15 pm NEW CONCERN October 30, 2024 6:00 pm SENIOR CARE LAB WORK November 12, 2024 5:0 0am [...] MONTHLY EXAM October 09, 2024 5:45p m SENIOR CARE LAB WORK October 15, 2024 5:0 0am SENIOR CARE LAB WORK October 22, 2024 5: 00am NEW CONCERN October 22, 2024 12:4 5pm SENIOR CARE LAB WORK October 23, 2024 5: 00am SENIOR CARE LAB WORK October 29, 2024 5: 00am FU VISIT October 29, 2024 7:15 pm NEW CONCERN October 30, 2024 6:00 pm SENIOR CARE LAB WORK November 05, 2024 5: 00am SENIOR CARE LAB WORK November 12, 2024 5:0 0am SENIOR CARE LAB WORK November 19, 2024 4:0 0am New Concern November 20, 2024 10:49 am LABWORK November 25, 2024 2:00 am SENIOR CARE LAB WORK November 26, 2024 5: 20am New Concern November 28, 2024 4:43 pm SENIOR CARE LAB WORK December 03, 2024 5: 00am Chief Complaint Admit Date LAB WORK September 10, 2024 5:0 0am ADMISSION EXAM September 10, 2024 12: 49pm ADMISSION EXAM September 11, 2024 3:0 8pm LAB WORK September 17, 2024 5:00am LABWORK September 24, 2024 5:00a m LAB WORK September 29, 2024 5:44p m LAB WORK October 01, 2024 5:00a m AFIB ([facility]) October 02, 2024 9:29a m LAB WORK October 08, 2024 5:00a m MONTHLY EXAM October 09, 2024 5:45p m SENIOR CARE LAB WORK October 15, 2024 5:0 0am SENIOR CARE LAB WORK October 22, 2024 5: 00am NEW CONCERN October 22, 2024 12:4 5pm SENIOR CARE LAB WORK October 23, 2024 5: 00am SENIOR CARE LAB WORK October 29, 2024 5: 00am FU VISIT October 29, 2024 7:15 pm NEW CONCERN October 30, 2024 6:00 pm SENIOR CARE LAB WORK November 05, 2024 5: 00am SENIOR CARE LAB WORK November 12, 2024 5:0 0am SENIOR CARE LAB WORK November 19, 2024 4:0 0am New Concern November 20, 2024 10:49 am LABWORK November 25, 2024 2:00 am SENIOR CARE LAB WORK November 26, 2024 5: 20am SENIOR CARE LAB WORK December 03, 2024 5: 00am Chief Complaint Admit Date LAB WORK September 10, 2024 5:0 0am ADMISSION EXAM September 10, 2024 12: 49pm ADMISSION EXAM September 11, 2024 3:0 8pm LAB WORK September 17, 2024 5:00am LABWORK September 24, 2024 5:00a m LAB WORK September 29, 2024 5:44p m LAB WORK October 01, 2024 5:00a m AFIB ([facility]) October 02, 2024 9:29a m LAB WORK October 08, 2024 5:00a m MONTHLY EXAM October 09, 2024 5:45p m SENIOR CARE LAB WORK October 15, 2024 5:0 0am SENIOR CARE LAB WORK October 22, 2024 5: 00am NEW CONCERN October 22, 2024 12:4 5pm SENIOR CARE LAB WORK October 23, 2024 5: 00am SENIOR CARE LAB WORK October 29, 2024 5: 00am FU VISIT October 29, 2024 7:15 pm NEW CONCERN October 30, 2024 6:00 pm SENIOR CARE LAB WORK November 05, 2024 5: 00am SENIOR CARE LAB WORK November 12, 2024 5:0 0am SENIOR CARE LAB WORK November 19, 2024 4:0 0am New Concern November 20, 2024 10:49 am LABWORK November 25, 2024 2:00 am SENIOR CARE LAB WORK November 26, 2024 5: 20am New Concern November 28, 2024 4:43 pm SENIOR CARE LAB WORK December 03, 2024 5: 00am SENIOR CARE LAB WORK December 10, 2024 6: 20am SENIOR CARE LAB WORK December 17, 2024 5 :00am SENIOR CARE LAB WORK December 24, 2024 5:00am SENIOR CARE LAB WORK December 31, 2024 4:00am MONTHLY EXAM December 31, 2024 12 :07pm Chief Complaint Admit Date SENIOR CARE LAB WORK October 22, 2024 5: 00am NEW CONCERN October 22, 2024 12:4 5pm SENIOR CARE LAB WORK October 23, 2024 5: 00am SENIOR CARE LAB WORK October 29, 2024 5: 00am FU VISIT October 29, 2024 7:15 pm NEW CONCERN October 30, 2024 6:00 pm SENIOR CARE LAB WORK November 05, 2024 5: 00am SENIOR CARE LAB WORK November 12, 2024 5:0 0am SENIOR CARE LAB WORK November 19, 2024 4:0 0am New Concern November 20, 2024 10:49 am LABWORK November 25, 2024 2:00 am SENIOR CARE LAB WORK November 26, 2024 5: 20am New Concern November 28, 2024 4:43 pm SENIOR CARE LAB WORK December 03, 2024 5: 00am SENIOR CARE LAB WORK December 10, 2024 6: 20am SENIOR CARE LAB WORK December 17, 2024 5 :00am SENIOR CARE LAB WORK December 24, 2024 5:00am SENIOR CARE LAB WORK December 31, 2024 4:00am MONTHLY EXAM December 31, 2024 12 :07pm SENIOR CARE LAB WORK January 07, 2025 4:00am SENIOR CARE LAB WORK January 14 4:00am LABWORK January 21, 2025 5:00am SENIOR CARE LAB WORK January 28 5:00am SENIOR CARE LAB WORK February 04 5:07am Chief Complaint Admit Date SENIOR CARE LAB WORK November 12, 2024 5:0 0am SENIOR CARE LAB WORK November 19, 2024 4:0 0am New Concern November 20, 2024 10:49 am LABWORK November 25, 2024 2:00 am SENIOR CARE LAB WORK November 26, 2024 5: 20am New Concern November 28, 2024 4:43 pm SENIOR CARE LAB WORK December 03, 2024 5: 00am SENIOR CARE LAB WORK December 10, 2024 6: 20am SENIOR CARE LAB WORK December 17, 2024 5 :00am SENIOR CARE LAB WORK December 24, 2024 5:00am SENIOR CARE LAB WORK December 31, 2024 4:00am MONTHLY EXAM December 31, 2024 12 :07pm SENIOR CARE LAB WORK January 07, 2025 4:00am SENIOR CARE LAB WORK January 14 4:00am LABWORK January 21, 2025 5:00am SENIOR CARE LAB WORK January 28 5:00am SENIOR CARE LAB WORK February 04 5:07am SENIOR CARE LAB WORK February 11 6:03am SENIOR CARE LAB WORK February 25, 2025 4:07am Additional Source Comments INFORMATION SOURCE (unrecogn ized section and content) DATE CREATED AUTHOR 08/31/2018 [facility] ([place]) DATE CREATED AUTHOR AUTHOR'S ORGANIZ ATION 10/18/2019 [facility] DATE CREATED AUTHOR AUTHOR'S ORGANIZ ATION 08/04/2024 [facility] [employer] [facility] DATE CREATED AUTHOR AUTHOR'S ORGANIZ ATION 08/07/2024 [facility] DATE CREATED AUTHOR AUTHOR'S ORGANIZ ATION 09/01/2024 [facility] DATE CREATED AUTHOR AUTHOR'S ORGANIZ ATION 11/08/2024 [facility] DATE CREATED AUTHOR AUTHOR'S ORGANIZ ATION 02/17/2025 [facility] DATE CREATED AUTHOR AUTHOR'S ORGANIZ ATION 03/26/2025 [facility] Source Comments (unrecognize d section and [...] Comments request for medication Reason Comments [facility] requesting verbal agree to f ollow Care Teams (unrecognized sec tion and content) Assembly Line Upholsterer Relationship Specialty Start Date End Date Kameron Caruso MD [address] [place] [address] PCP - General Family Practice 09/21/15 Assembly Line Upholsterer Relationship Specialty Start Date End Date Kameron Caruso MD [address] [facility] [place] [address] PCP - General Family Practice 09/21/15 Assembly Line Upholsterer Relationship Specialty Start Date End Date Kameron Caruso MD [address] [place] [address] PCP - General Family Practice 09/21/15 Assembly Line Upholsterer Relationship Specialty Start Date End Date Kameron Caruso MD [address] [place] [address] PCP - General Family Practice 09/21/15 Assembly Line Upholsterer Relationship Specialty Start Date End Date Kameron Caruso MD [address] [place] [address] PCP - General Family Practice 09/21/15 Assembly Line Upholsterer Relationship Specialty Start Date End Date Kameron Caruso MD [address] [place] [address] PCP - General Family Practice 09/21/15 Assembly Line Upholsterer Relationship Specialty Start Date End Date Kameron Caruso MD [address] [place] [address] PCP - General Family Medicine 09/21/15 Assembly Line Upholsterer Relationship Specialty Start Date End Date Kameron Caruso MD [address] [place] [address] PCP - General Family Medicine 09/21/15 Assembly Line Upholsterer Relationship Specialty Start Date End Date Kameron Caruso MD [address] [place] [address] PCP - General Family Medicine 09/21/15 Assembly Line Upholsterer Relationship Specialty Start Date End Date Kameron Caruso MD [address] [place] [address] PCP - General Family Medicine 09/21/15 Assembly Line Upholsterer Relationship Specialty Start Date End Date Kameron Caruso MD [address] [place] [address] PCP - General Family Medicine 09/21/15 Assembly Line Upholsterer Relationship Specialty Start Date End Date Kameron Caruso MD [address] [place] [address] PCP - General Family Medicine 09/21/15 Assembly Line Upholsterer Relationship Specialty Start Date End Date Kameron Caruso MD [address] [place] [address] PCP - General Family Medicine 09/21/15 Assembly Line Upholsterer Relationship Specialty Start Date End Date Kameron Caruso MD [address] [place] [address] PCP - General Family Medicine 09/21/15 Assembly Line Upholsterer Relationship Specialty Start Date End Date Kameron Caruso MD [address] [place] [address] PCP - General Family Medicine 09/21/15 Assembly Line Upholsterer Relationship Specialty Start Date End Date Kameron Caruso MD [address] [place] [address] PCP - General Family Medicine 09/21/15 Emma Glasgow APRN.CNP [address] [place] [address] Key Entry Operator Family Medicine 04/21/24 Mj Glover APRN.TOBACCO STEMMER [address] [place] [address] Key Entry Operator Family Medicine 04/30/24 Assembly Line Upholsterer Relationship Specialty Start Date End Date Kameron Caruso MD [address] [place] [address] PCP - General Family Medicine 09/21/15 Emma Glasgow APRN.TOBACCO STEMMER [address] [place] [address] Key Entry Operator Family Medicine 04/21/24 Mj Glover APRN.TOBACCO STEMMER [address] [place] [address] Key Entry Operator Family Medicine 04/30/24 Assembly Line Upholsterer Relationship Specialty Start Date End Date Kameron Caruso MD [address] [place] [address] PCP - General Family Medicine 09/21/15 Emma Glasgow APRN.TOBACCO STEMMER [address] [place] [address] Key Entry Operator Family Medicine 04/21/24 Mj Glover SERVICE GREETER.TOBACCO STEMMER [address] [place] [address] Key Entry Operator Family Medicine 04/30/24 Assembly Line Upholsterer Relationship Specialty Start Date End Date Kameron Caruso MD [address] [place] [address] PCP - General Family Medicine 09/21/15 Emma Glasgow APRN.TOBACCO STEMMER [address] [place] [address] Key Entry Operator Family Medicine 04/21/24 Mj Gloevr APRN.TOBACCO STEMMER [address] [place] [address] Key Entry Operator Family Medicine 04/30/24 Assembly Line Upholsterer Relationship Specialty Start Date End Date Kameron Caruso MD [address] [place] [address] PCP - General Family Medicine 09/21/15 Emma Glasgow APRN.TOBACCO STEMMER [address] [place] [address] Key Entry Operator Family Medicine 04/21/24 Mj Glover APRN.TOBACCO STEMMER [address] [place] [address] Key Entry Operator Family Medicine 04/30/24 Assembly Line Upholsterer Relationship Specialty Start Date End Date Kameron Caruso MD [address] [place] [address] PCP - General Family Medicine 09/21/15 Emma Glasgow APRN.TOBACCO STEMMER [address] [place] [address] Key Entry Operator Family Medicine 04/21/24 Mj Glover APRN.TOBACCO STEMMER [address] [place] [address] Key Entry Operator Family Medicine 04/30/24 Assembly Line Upholsterer Relationship Specialty Start Date End Date Kameron Caruso MD [address] [place] [address] PCP - General Family Medicine 09/21/15 Emma Glasgow APRN.TOBACCO STEMMER [address] [place] [address] Key Entry Operator Family Medicine 04/21/24 Mj Glover APRN.TOBACCO STEMMER [address] [facility] [place] [address] Key Entry Operator Family Medicine 04/30/24 Team Status: Active Member Role Status Dates Dr. Kameron Caruso MD Primary Care Provider Active Team Status: Inactive Member Role Status Dates Dr. Kameron Caruso MD Primary Care Provider Active Start: August 02, 2024 End: August 02, 2024 Dr. Pieter Morgan MD Emergency Provider Active Start: August 02, 2024 End: August 02, 2024 Assembly Line Upholsterer Relationship Specialty Start Date End Date Kameron Caruso MD [address] [place] [address] PCP - General Family Medicine 08/03/24 Assembly Line Upholsterer Relationship Specialty Start Date End Date Kameron Caruso MD [address] [facility] [place] [address] PCP - General Family Medicine 09/21/15 Emma Glasgow APRN.TOBACCO STEMMER [address] [facility] [place] [address] Key Entry Operator Family Medicine 04/21/24 Mj Glover APRN.TOBACCO STEMMER [address] [facility] [place] [address] Key Entry Operator Family Medicine 04/30/24 Team Status: Inactive [...] End: September 11, 2024 Bret Snyder NP, TUNNEL KILN REPAIRER-C Attending Provider Active Start: September 11, [...] Provider Active Start: October 08, 2024 Safia VAGRAS MD Attending Provider Active Start: October 08, 2024 Team Status: Inactive Member Role/Relationship Status Dates Dr. Kameron Caruso MD Primary Care Provider Active Start: October 09, 2024 End: October 09, 2024 Bret Snyder TUNNEL KILN REPAIRER, TUNNEL KILN REPAIRER-C Attending Provider Active Start: October 09, [...] End: October 30, 2024 Bret Snyder NP TUNNEL KILN REPAIRER-C Attending Provider Active Start: October 30, [...] End: October 22, 2024 Bret Snyder NP TUNNEL KILN REPAIRER-C Attending Provider Active Start: October 22, [...] 2024 End: October 30, 2024 Bret Snyder TUNNEL KILN REPAIRER, TUNNEL KILN REPAIRER-C Attending Provider Active Start: October 30, [...] End: October 30, 2024 Bret Snyder NP TUNNEL KILN REPAIRER-C Attending Provider Active Start: October 30, [...] End: September 11, 2024 Bret Snyder NP, TUNNEL KILN REPAIRER-C Attending Provider Active Start: September 11, [...] Provider Active Start: October 08, 2024 Safia VARAGS MD Attending Provider Active Start: October 08, 2024 Team Status: Inactive Member Role/Relationship Status Dates Dr. Kameron Caruso MD Primary Care Provider Active Start: October 09, 2024 End: October 09, 2024 Bret Snyder TUNNEL KILN REPAIRER, TUNNEL KILN REPAIRER-C Attending Provider Active Start: October 09, [...] 2024 End: October 22, 2024 Bret Snyder TUNNEL KILN REPAIRER, TUNNEL KILN REPAIRER-C Attending Provider Active Start: October 22, [...] 2024 End: November 20, 2024 Bret Snyder TUNNEL KILN REPAIRER, TUNNEL KILN REPAIRER-C Attending Provider Active Start: November 20, [...] 2024 End: November 28, 2024 Bret Snyder TUNNEL KILN REPAIRER, TUNNEL KILN REPAIRER-C Attending Provider Active Start: November 28, [...] October 22, 2024 End: October 22, 2024 Brte Snyder NP TUNNEL KILN REPAIRER-C Attending physician Active Start: October 22, [...] End: November 20, 2024 Bret Snyder NP TUNNEL KILN REPAIRER-C Attending physician Active Start: November 20, [...] End: November 28, 2024 Bret Snyder NP TUNNEL KILN REPAIRER-C Attending physician Active Start: November 28, [...] care physician Active Start: January 21, 2025 Safai VARGAS MD Attending physician Active Start: January [...] glucose is greater than 200mg/dl, then notify household appliances service technician. And BLOOD GLUCOSE (POC DEVICE) (CANCELED) Routine, [...] 50% needed, contact pharmacy or obtain from [address] [employer] cart ++ And glucose (GLUTOSE) 40 % [...] at 1301, Until Specified, Who to Notify: Steward/Stewardess Second, For all Blood Glucose LESS THAN 80 mg/dl, notify Steward/Stewardess Second after treatment per Hypoglycemia in Non- Adults [...] BE BASED ON THE PRIMARY CLINICAL RECORDS. [facility]. provides no warranty or guarantee of the accuracy or completeness of information in this document.
[2025-04-22 08:57] LABS: Anion Gap 12 (5-15); BUN 12 mg/dL (4-19); BUN/Creat Ratio 16.5 RATIO (10-20); Calcium,Total 9.1 mg/dL (7.6-11.0); Carbon Dioxide 23.8 mmol/L (21.0-32.0); Chloride 104 mmol/L (98-108); Glucose 103 mg/dL (70-99); Potassium 3.5 mmol/L (3.3-5.1)
[2025-04-22 10:37] LABS: Hematocrit 35.6 % (37-47); Hemoglobin 11.3 g/dL (12.0-15.0); Immature Granulocytes Count 0.020 X10^3/uL (0.0-0.0); Mean Corp Hgb Conc 31.7 g/dL (32-36); Mean Corpuscular Volume 94.4 fL (81-99); Mean Platelet Vol. 11.6 fl (6.2-12.0); NRBC Flagged by Analyzer 0 % (0-5); Platelet Count 247 K/mm3 (150-450); RBC Distribution Width CV 13.6 % (11.6-14.6); RBC Distribution Width SD 47.2 fl (35.1-43.9); Red Blood Count 3.77 M/mm3 (4.2-5.4); White Blood Count 9.0 K/mm3 (4.4-11.0)
== END ==
LOC: OLS.WHLTCC 05:00
PROVIDERS: PCP Family Medicine; Visit Provider Internal Medicine
DX: E11.9 Type 2 diabetes mellitus without complications (principal); I10 Essential (primary) hypertension; Z86.73 Personal history of transient ischemic attack (TIA), and cerebral infarction without residual deficits
CPT/HCPCS: 36415; 80048; 85025

== ENCOUNTER → 2025-04-29 05:00 | Outpatient (REF) | payer MEDICARE, SELFPAY ==
--- OUTSIDE RECORDS SUMMARY | 2025-04-29 03:57 | XMS RPT_ITS | CCD ---
Author Organization [facility] Care Team Providers Care Forestry Professor Name Role Phone KETTY DOWNS Attending Unavailable [...] Kameron Caruso MD Primary Care Provider Светлана [employer].Emma TUCKER Unavailable Saurav [employer]ER.Mj TUCKER Unavailable JUVENTINO ROGERS Attending Unavailable JUVENTINO ROGERS Admitting Unavailable CATA ALFRED Attending Unavailable CATA ALFRED Admitting Unavailable Dr. Kameron Caruso MD Primary Care Provider Dr. Pieter Morgan MD Emergency Provider Kameron Caruso MD Primary Care Provider Светлана [employer].Emma TUCKER Unavailable Unavail able KAMERON CARUSO Referring [...] Dr. Safia Ruelas MD Attending Provider Claudio DIE STAMPER-CBret Attending Provider Safia Ruelas MD Referring Provider UnavailDr. Kameron Marquez MD Primary Care Provider Safia Ruelas MD Attending Provider UnavailDr. Safia Ulloa MD Attending Provider Claudio DIE STAMPER-C, Bret Attending Provider Safia Ruelas MD Referring Provider UnavailDr. Kameron Marquez MD Referring Provider [phone] Dr. Mj Benavides MD Attending Provider Dr. Kameron Caruso MD Primary Care Physician Safia Ruelas MD Attending Physician Unavail able Claudio DIE STAMPER-CBret Attending Physician Dr. Safia Ruelas MD Attending Physician Safia Ruelas MD Referring Provider Alexandra CARUSO MD, DR MELO Primary Care Unavailab shital PEARL DO, SILVINO Admitting Unavailable DAE DO, SILVINO Attending Unavailable BRYON LAWSON, DR REECE Consulting Unavailab shital CORRINE DO, NANDO Consulting Unavailable SUDARSHAN [employer]ER-ORDER CONTROL CLERK BLOOD BANK, AMI Hwang Consulting Unavailjair GIBSON PhD, MATTHEW Zamudio Consulting Unavailable Zuly LAWSON, Dr. Melo Primary Care Physician Safia Ruelas MD Attending Physician Unavail able Claudio CASH-CBret Attending Physician Jessenia LAWSON, Dr. Baig Attending Physician [phone] Kameron Caruso Primary Care Unavailable Oleghe OLS, [...] Unavailable Elderbrock, Kameron Primary Care Unavailable Tickton DIE STAMPER, Bret Attending Unavailable Oleghe OLS, Efewongbe Attending Unavailabl e Elderbrock, Kameron Primary Care Unavailable Elderbrock, Kameron Primary Care Unavailable Oleghe, Efewongbe Attending Unavailable Elderbrock, Kameron Primary Care Unavailable Mj Benavides Attending Unavailable Elderbrock, Kameron Referring Unavailable Elderbrock, Kameron Primary Care Unavailable Oleghe, Efewongbe Attending Unavailable Tickton DIE STAMPER, Bret Attending Unavailable Elderbrock, Kameron Primary Care Unavailable Tickton DIE STAMPER, Bret Attending Unavailable Elderbrock, Kameron Primary Care Unavailable Oleghe, Efewongbe Attending Unavailable Elderbrock, Kameron Primary Care Unavailable [place]ickton DIE STAMPER, Bret Attending Unavailable Elderbrock, Kameron Primary Care Unavailable Tickton DIE STAMPER, Bret Attending Unavailable Elderbrock, Kameron Primary Care Unavailable Elderbrock, Kameron Primary Care Unavailable Tickton DIE STAMPER, Bret Attending Unavailable Oleghe OLS, Efewongbe Attending [...] reactions to drug 6 Other (See Comments) [place], [place] (2 sources) Other Propensity to adverse reactions 6 Shortness Of Breath [place], [place] (20 sources) Benzocaine; Translations: [BENZOCAINE] Drug Allergy 6 Rash [facility] Work Phone: (20 sources) Cocaine; Translations: [COCAINE] Drug Allergy 9 Inverted T waves [facility] Work Phone: (20 sources) Sulfonamides (Antibiotic); Translations: [SULFA (SULFONAMIDE ANTIBIOTICS)] Propensity to adverse reactions 6 Intolerance [facility] Work Phone: (20 sources) Perfumes; Translations: [PERFUMES] Propensity to adverse reactions 6 Shortness of Breath [facility] Work Phone: (13 sources) Sulfonamides (Antibiotic) Allergy to substance 5 Unknown [facility] (15 sources) perfume; Translations: [perfume] Allergy to substance 5 Shortness of breath [facility] (1 source) Cocaine; Translations: [cocaine nasal] Drug Allergy [facility] (1 source) Codeine; Translations: [codeine] Drug Allergy Pharyngeal swelling (finding) [facility] (1 source) Sulfonamide; Translations: [sulfa drugs] Drug allergy [facility] (1 source) Benzocaine Drug Allergy 5 [facility] (1 source) Cocaine Drug Allergy 5 [facility] (1 source) Sulfonamides (Antibiotic) Drug allergy (disorder) 5 [facility] Medications Current Medications Medication Drug [...] kidney disease, unspecified CKD stage, unspecified whether care home insulin use (HCC) , Type 2 [...] christ once daily. Take 1 tablet by [facility] once daily atovaquone 250 mg / [...] Comment on above: Take 1 tablet by [facility] once daily. Start medication 2 days [...] kidney disease, unspecified CKD stage, unspecified whether care home insulin use (HCC) Take 1 tablet by [...] capsules by m outh once daily sennosides, prison 8.6 mg oral tablet (2 sources) Start: 08-09-2024 End: 08-15-2024 Start: 08-04-2024 End: 08-09-2024 triamcinolone acetonide 0.39346 mg/mg topical ointment (3 sources) Corticosteroid Start: [...] is greater than 200mg/dl, then notify warehouse director. 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; Translations: [construction equipment operator (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) use of aspirin] Onset: 08-15-2024 Episodic Other aftercare (1 source) 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; Translations: [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] Onset: 08-15-2024 Episodic Other aftercare (1 source) construction equipment operator (current) use of oral hypoglycemic drugs; Translations: [snf (current) use of oral hypoglycemic drugs] Onset: [...] Auto (Unsp spec) [#/Vol] 2.89 10*3/uL 0.83-4.51 [facility] Anion gap in Serum or Plasma Ordered By: Safia Ruelas on 03-04-2025 Anion gap [Moles/Vol] 12 mmol/L 5-15 [facility] Automated lymphocyte count a s percentage of total leukocytesOrdered By: Safia Ruelas on 03-04-2025 Lymphocytes/100 WBC Auto (Unsp spec) 32.0 % 19- [facility] BUN/creatinine ratioOrdered By: Safia Ruelas on 03-04-2025 Urea nitrogen/Creatinine [Mass ratio] 28.8 mg/mg High 10- [facility] Basophil percentageOrdered B y: Safia Ruelas on 03-04-2025 Basophils/100 WBC (Bld) 0.7 % 0-1 [facility] Carbon dioxide, total [Moles /volume] in Central venous bloodOrdered By: Safia Ruelas on 03-04-2025 CO2 [Moles/Vol] 25.6 mmol/L 21.0-32.0 [facility] Chloride assayOrdered By: Balbir Ruelas on 03-04-2025 Chloride [Moles/Vol] 104 mmol/L 98-108 [facility] Eosinophil percentageOrdered By: Safia Ruelas on 03-04-2025 Eosinophils/100 WBC (Bld) 2.1 % 0-5 [facility] Erythrocyte distribution wid th ratioOrdered By: Safia Ruelas on 03-04-2025 Erythrocyte distribution width (RBC) [Ratio] 14.5 % 11.6-14.6 [facility] Erythrocyte distribution wid th standard deviationOrdered By: Safia Ruelas on 03-04-2025 Erythrocyte distribution width (RBC) [Ratio] 50.6 fl High 35.1-43.9 [facility] Glomerular filtration rate ( GFR) estimation/1.73 sq m using serum, plasma, or whole bOrdered By: Safia Ruelas on 03-04-2025 GFR/1.73 sq M.predicted among non-blacks MDRD (S/P/Bld) [Vol rate/Area] 73 mL/min/{1.73_m2} >60 [facility] Hematocrit Auto (Bld) [Volum e fraction]Ordered By: Safia Ruelas on 03-04-2025 Hematocrit (Bld) [Volume fraction] 38.1 % 37-47 [facility] Hemoglobin measurementOrdere d By: Safia Ruelas on 03-04-2025 Hemoglobin (Bld) [Mass/Vol] 12.0 g/dL 12.0-15.0 [facility] Immature granulocytes/100 WB C Auto (Bld)Ordered By: Safia Ruelas on 03-04-2025 Immature granulocytes/100 WBC (Bld) 0.300 % 0.0-0.9 [facility] MCV (mean corpuscular volume ) determinationOrdered By: Safia Ruelas on 03-04-2025 MCV (RBC) [Entitic vol] 94.1 fL 81-99 [facility] Mean corpuscular hemoglobin (MCH) determinationOrdered By: Safia Ruelas on 03-04-2025 MCH (RBC) [Entitic mass] 29.6 pg 27.0-32.0 [facility] Monocyte percentageOrdered B y: Safia Ruelas on 03-04-2025 Monocytes/100 WBC (Bld) 8.5 % 0-10 [facility] Neutrophil percentageOrdered By: Safia Ruelas on 03-04-2025 Neutrophils/100 WBC (Bld) 56.4 % 47-70 [facility] Platelet countOrdered By: Balbir Ruelas on 03-04-2025 Platelets (Bld) [#/Vol] 246 10*3/uL 150-450 [facility] Potassium measurement (mass/ volume)Ordered By: Safia Ruelas on 03-04-2025 Potassium (Unsp spec) [Mass/Vol] 3.9 mmol/L 3.3-5.1 [facility] RBC Auto (Bld) [#/Vol]Ordere d By: Safia Ruelas on 03-04-2025 RBC (Bld) [#/Vol] 4.05 10*6/uL Low 4.2-5.4 [facility] Serum creatinine measurement (mass/volume)Ordered By: Safia Ruelas on 03-04-2025 Creatinine [Mass/Vol] 0.82 mg/dL 0.70-1.20 [facility] Serum glucose measurement (m ass/volume)Ordered By: Safia Ruelas on 03-04-2025 Glucose [Mass/Vol] 157 mg/dL High 70-99 [facility] Serum or plasma calcium dayna urement (mass/volume)Ordered By: Safia Ruelas on 03-04-2025 Calcium [Mass/Vol] 9.4 mg/dL 7.6-11.0 [facility] Serum or plasma urea nitroge n measurement (mass/volume)Ordered By: Safia Ruelas on 03-04-2025 Urea nitrogen [Mass/Vol] 24 mg/dL High 4-19 [facility] Sodium levelOrdered By: Leonides Ruelas on 03-04-2025 Sodium [Moles/Vol] 142 mmol/L 133-145 [facility] White blood cell (WBC) count Ordered By: Safia Ruelas on 03-04-2025 WBC (Bld) [#/Vol] 9.0 10*3/uL 4.4-11.0 [facility] Absolute lymphocyte countOrd ered By: Safia Ruelas on 02-25-2025 Lymphocytes Auto (Unsp spec) [#/Vol] 3.32 10*3/uL 0.83-4.51 [facility] Anion gap in Serum or Plasma Ordered By: Safia Ruelas on 02-25-2025 Anion gap [Moles/Vol] 12 mmol/L 5-15 [facility] Automated lymphocyte count a s percentage of total leukocytesOrdered By: Safia Ruelas on 02-25-2025 Lymphocytes/100 WBC Auto (Unsp spec) 36.7 % 19- [facility] BUN/creatinine ratioOrdered By: Safia Ruelas on 02-25-2025 Urea nitrogen/Creatinine [Mass ratio] 20.5 mg/mg High 10- [facility] Basophil percentageOrdered B y: Safia Ruelas on 02-25-2025 Basophils/100 WBC (Bld) 0.6 % 0-1 [facility] Carbon dioxide, total [Moles /volume] in Central venous bloodOrdered By: Safia Ruelas on 02-25-2025 CO2 [Moles/Vol] 25.9 mmol/L 21.0-32.0 [facility] Chloride assayOrdered By: Balbir Ruelas on 02-25-2025 Chloride [Moles/Vol] 103 mmol/L 98-108 [facility] Eosinophil percentageOrdered By: sherry Ruelas on 02-25-2025 Eosinophils/100 WBC (Bld) 2.2 % 0-5 [facility] Erythrocyte distribution wid th ratioOrdered By: Safia Westonmelanie on 02-25-2025 Erythrocyte distribution width (RBC) [Ratio] 14.3 % 11.6-14.6 [facility] Erythrocyte distribution wid th standard deviationOrdered By: Safia Ruelas on 02-25-2025 Erythrocyte distribution width (RBC) [Ratio] 48.5 fl High 35.1-43.9 [facility] Glomerular filtration rate ( GFR) estimation/1.73 sq m using serum, plasma, or whole bOrdered By: Safia Cheobonimelanie on 02-25-2025 GFR/1.73 sq M.predicted among non-blacks MDRD (S/P/Bld) [Vol rate/Area] 75 mL/min/{1.73_m2} >60 [facility] Hematocrit Auto (Bld) [Volum e fraction]Ordered By: Safia Ruelas on 02-25-2025 Hematocrit (Bld) [Volume fraction] 39.0 % 37-47 [facility] Hemoglobin measurementOrdere d By: Safia Ruelas on 02-25-2025 Hemoglobin (Bld) [Mass/Vol] 12.3 g/dL 12.0-15.0 [facility] Immature granulocytes/100 WB C Auto (Bld)Ordered By: Safia Cheobonimelanie on 02-25-2025 Immature granulocytes/100 WBC (Bld) 0.400 % 0.0-0.9 [facility] MCV (mean corpuscular volume ) determinationOrdered By: Safia Cheobonimelanie on 02-25-2025 MCV (RBC) [Entitic vol] 92.4 fL 81-99 [facility] Mean corpuscular hemoglobin (MCH) determinationOrdered By: Safia Ruelas on 02-25-2025 MCH (RBC) [Entitic mass] 29.1 pg 27.0-32.0 [facility] Monocyte percentageOrdered B y: Safia Ruelas on 02-25-2025 Monocytes/100 WBC (Bld) 7.7 % 0-10 [facility] Neutrophil percentageOrdered By: Safia Ruelas on 02-25-2025 Neutrophils/100 WBC (Bld) 52.4 % 47-70 [facility] Platelet countOrdered By: Balbir Ruelas on 02-25-2025 Platelets (Bld) [#/Vol] 257 10*3/uL 150-450 [facility] Potassium measurement (mass/ volume)Ordered By: Safia Ruelas on 02-25-2025 Potassium (Unsp spec) [Mass/Vol] 3.5 mmol/L 3.3-5.1 [facility] RBC Auto (Bld) [#/Vol]Ordere d By: Safia Ruelas on 02-25-2025 RBC (Bld) [#/Vol] 4.22 10*6/uL 4.2-5.4 [facility] Serum creatinine measurement (mass/volume)Ordered By: Safia Ruelas on 02-25-2025 Creatinine [Mass/Vol] 0.80 mg/dL 0.70-1.20 [facility] Serum glucose measurement (m ass/volume)Ordered By: Safia Ruelas on 02-25-2025 Glucose [Mass/Vol] 121 mg/dL High 70-99 [facility] Serum or plasma calcium dayna urement (mass/volume)Ordered By: Safia Ruelas on 02-25-2025 Calcium [Mass/Vol] 9.2 mg/dL 7.6-11.0 [facility] Serum or plasma urea nitroge n measurement (mass/volume)Ordered By: Safia Ruelas on 02-25-2025 Urea nitrogen [Mass/Vol] 16 mg/dL 4-19 [facility] Sodium levelOrdered By: Leonides jiménezradha Jessenia on 02-25-2025 Sodium [Moles/Vol] 140 mmol/L 133-145 [facility] TSH DL <= 0.005 mIU/L QnOrde red By: Safia Ruelas on 02-25-2025 TSH Qn 0.226 uIU/mL Low 0.300-4.200 [facility] White blood cell (WBC) count Ordered By: Safia Ruelas on 02-25-2025 WBC (Bld) [#/Vol] 9.0 10*3/uL 4.4-11.0 [facility] Absolute lymphocyte countOrd ered By: Safia Ruelas on 02-18-2025 Lymphocytes Auto (Unsp spec) [#/Vol] 1.78 10*3/uL 0.83-4.51 [facility] Anion gap in Serum or Plasma Ordered By: Safia Ruelas on 02-18-2025 Anion gap [Moles/Vol] 13 mmol/L 5-15 [facility] Automated lymphocyte count a s percentage of total leukocytesOrdered By: Safia Ruelas on 02-18-2025 Lymphocytes/100 WBC Auto (Unsp spec) 22.5 % 19-41 [facility] BUN/creatinine ratioOrdered By: Safia Ruelas on 02-18-2025 Urea nitrogen/Creatinine [Mass ratio] 23.7 mg/mg High 10-20 [facility] Basophil percentageOrdered B y: Safia Ruelas on 02-18-2025 Basophils/100 WBC (Bld) 0.4 % 0-1 [facility] Carbon dioxide, total [Moles /volume] in Central venous bloodOrdered By: Safia Ruelas on 02-18-2025 CO2 [Moles/Vol] 23.2 mmol/L 21.0-32.0 [facility] Chloride assayOrdered By: Balbir Ruelas on 02-18-2025 Chloride [Moles/Vol] 102 mmol/L 98-108 [facility] Eosinophil percentageOrdered By: Safia Ruelas on 02-18-2025 Eosinophils/100 WBC (Bld) 0.4 % 0-5 [facility] Erythrocyte distribution wid th ratioOrdered By: Safia Ruelas on 02-18-2025 Erythrocyte distribution width (RBC) [Ratio] 14.3 % 11.6-14.6 [facility] Erythrocyte distribution wid th standard deviationOrdered By: Safia Ruelas on 02-18-2025 Erythrocyte distribution width (RBC) [Ratio] 48.0 fl High 35.1-43.9 [facility] Glomerular filtration rate ( GFR) estimation/1.73 sq m using serum, plasma, or whole bOrdered By: Safia Ruelas on 02-18-2025 GFR/1.73 sq M.predicted among non-blacks MDRD (S/P/Bld) [Vol rate/Area] 76 mL/min/{1.73_m2} >60 [facility] Hematocrit Auto (Bld) [Volum e fraction]Ordered By: Safia Ruelas on 02-18-2025 Hematocrit (Bld) [Volume fraction] 39.0 % 37-47 [facility] Hemoglobin measurementOrdere d By: Safia Ruelas on 02-18-2025 Hemoglobin (Bld) [Mass/Vol] 12.5 g/dL 12.0-15.0 [facility] Immature granulocytes/100 WB C Auto (Bld)Ordered By: Safia Ruelas on 02-18-2025 Immature granulocytes/100 WBC (Bld) 0.300 % 0.0-0.9 [facility] MCV (mean corpuscular volume ) determinationOrdered By: Safia Ruelas on 02-18-2025 MCV (RBC) [Entitic vol] 92.2 fL 81-99 [facility] Mean corpuscular hemoglobin (MCH) determinationOrdered By: Safia Ruelas on 02-18-2025 MCH (RBC) [Entitic mass] 29.6 pg 27.0-32.0 [facility] Monocyte percentageOrdered B y: Safia Ruelas on 02-18-2025 Monocytes/100 WBC (Bld) 4.8 % 0-10 [facility] Neutrophil percentageOrdered By: Safia Ruelas on 02-18-2025 Neutrophils/100 WBC (Bld) 71.6 % High 47-70 [facility] Platelet countOrdered By: Balbir Ruelas on 02-18-2025 Platelets (Bld) [#/Vol] 263 10*3/uL 150-450 [facility] Potassium measurement (mass/ volume)Ordered By: Safia Ruelas on 02-18-2025 Potassium (Unsp spec) [Mass/Vol] 4.1 mmol/L 3.3-5.1 [facility] RBC Auto (Bld) [#/Vol]Ordere d By: Safia Ruelas on 02-18-2025 RBC (Bld) [#/Vol] 4.23 10*6/uL 4.2-5.4 [facility] Serum creatinine measurement (mass/volume)Ordered By: Safia Ruelas on 02-18-2025 Creatinine [Mass/Vol] 0.79 mg/dL 0.70-1.20 [facility] Serum glucose measurement (m ass/volume)Ordered By: Safia Ruelas on 02-18-2025 Glucose [Mass/Vol] 165 mg/dL High 70-99 [facility] Serum or plasma calcium dayna urement (mass/volume)Ordered By: Safia Ruelas on 02-18-2025 Calcium [Mass/Vol] 9.2 mg/dL 7.6-11.0 [facility] Serum or plasma urea nitroge n measurement (mass/volume)Ordered By: Safia Ruelas on 02-18-2025 Urea nitrogen [Mass/Vol] 19 mg/dL 4-19 [facility] Sodium levelOrdered By: Leonides Ruelas on 02-18-2025 Sodium [Moles/Vol] 138 mmol/L 133-145 [facility] White blood cell (WBC) count Ordered By: Balbirjean mariejosé antonio Cheoquyen on 02-18-2025 WBC (Bld) [#/Vol] 7.9 10*3/uL 4.4-11.0 [facility] Absolute lymphocyte countOrd ered By: Safia Ruelas on 02-11-2025 Lymphocytes Auto (Unsp spec) [#/Vol] 2.71 10*3/uL 0.83-4.51 [facility] Anion gap in Serum or Plasma Ordered By: Balbirjean mariejosé antonio Cheobonimelanie on 02-11-2025 Anion gap [Moles/Vol] 14 mmol/L 5-15 [facility] Automated lymphocyte count a s percentage of total leukocytesOrdered By: Safia Cheoquyen on 02-11-2025 Lymphocytes/100 WBC Auto (Unsp spec) 36.1 % 19-41 [facility] BUN/creatinine ratioOrdered By: Balbirjean mariejosé antonio Cheoquyen on 02-11-2025 Urea nitrogen/Creatinine [Mass ratio] 23.1 mg/mg High 10-20 [facility] Basophil percentageOrdered B y: Safia Ruelas on 02-11-2025 Basophils/100 WBC (Bld) 0.7 % 0-1 [facility] Carbon dioxide, total [Moles /volume] in Central venous bloodOrdered By: Safia Cheobonimelanie on 02-11-2025 CO2 [Moles/Vol] 21.6 mmol/L 21.0-32.0 [facility] Chloride assayOrdered By: Balbir randallskye Griderbonimelanie on 02-11-2025 Chloride [Moles/Vol] 103 mmol/L 98-108 [facility] Eosinophil percentageOrdered By: Safia Ruelas on 02-11-2025 Eosinophils/100 WBC (Bld) 2.0 % 0-5 [facility] Erythrocyte distribution wid th ratioOrdered By: jean mariebaton rougeskye Ruelas on 02-11-2025 Erythrocyte distribution width (RBC) [Ratio] 14.4 % 11.6-14.6 [facility] Erythrocyte distribution wid th standard deviationOrdered By: jean mariebaton rougeskye Ruelas on 02-11-2025 Erythrocyte distribution width (RBC) [Ratio] 47.5 fl High 35.1-43.9 [facility] Glomerular filtration rate ( GFR) estimation/1.73 sq m using serum, plasma, or whole bOrdered By: sherry Ruelas on 02-11-2025 GFR/1.73 sq M.predicted among non-blacks MDRD (S/P/Bld) [Vol rate/Area] 72 mL/min/{1.73_m2} >60 [facility] Hematocrit Auto (Bld) [Volum e fraction]Ordered By: Safia Ruelas on 02-11-2025 Hematocrit (Bld) [Volume fraction] 37.4 % 37-47 [facility] Hemoglobin measurementOrdere d By: jean mariebaton rougeskye Ruelas on 02-11-2025 Hemoglobin (Bld) [Mass/Vol] 12.4 g/dL 12.0-15.0 [facility] Immature granulocytes/100 WB C Auto (Bld)Ordered By: Safia Ruelas on 02-11-2025 Immature granulocytes/100 WBC (Bld) 0.400 % 0.0-0.9 [facility] MCV (mean corpuscular volume ) determinationOrdered By: Safia Ruelas on 02-11-2025 MCV (RBC) [Entitic vol] 90.3 fL 81-99 [facility] Mean corpuscular hemoglobin (MCH) determinationOrdered By: [facility] on 02-11-2025 MCH (RBC) [Entitic mass] 30.0 pg 27.0-32.0 [facility] Monocyte percentageOrdered B y: Safia Ruelas on 02-11-2025 Monocytes/100 WBC (Bld) 6.8 % 0-10 [facility] Neutrophil percentageOrdered By: Safia Ruelas on 02-11-2025 Neutrophils/100 WBC (Bld) 54.0 % 47-70 [facility] Platelet countOrdered By: Balbir Ruelas on 02-11-2025 Platelets (Bld) [#/Vol] 260 10*3/uL 150-450 [facility] Potassium measurement (mass/ volume)Ordered By: Safia Ruelas on 02-11-2025 Potassium (Unsp spec) [Mass/Vol] 3.6 mmol/L 3.3-5.1 [facility] RBC Auto (Bld) [#/Vol]Ordere d By: Safia Ruelas on 02-11-2025 RBC (Bld) [#/Vol] 4.14 10*6/uL Low 4.2-5.4 [facility] Serum creatinine measurement (mass/volume)Ordered By: aSfia Ruelas on 02-11-2025 Creatinine [Mass/Vol] 0.83 mg/dL 0.70-1.20 [facility] Serum glucose measurement (m ass/volume)Ordered By: Safia Ruelas on 02-11-2025 Glucose [Mass/Vol] 110 mg/dL High 70-99 [facility] Serum or plasma calcium dayna urement (mass/volume)Ordered By: Safia Ruelas on 02-11-2025 Calcium [Mass/Vol] 9.1 mg/dL 7.6-11.0 [facility] Serum or plasma urea nitroge n measurement (mass/volume)Ordered By: Safia Ruelas on 02-11-2025 Urea nitrogen [Mass/Vol] 19 mg/dL 4-19 [facility] Sodium levelOrdered By: Leonides Ruelas on 02-11-2025 Sodium [Moles/Vol] 139 mmol/L 133-145 [facility] White blood cell (WBC) count Ordered By: Safia Ruelas on 02-11-2025 WBC (Bld) [#/Vol] 7.5 10*3/uL 4.4-11.0 [facility] Absolute lymphocyte countOrd ered By: Safia Ruelas on 02-04-2025 Lymphocytes Auto (Unsp spec) [#/Vol] 3.03 10*3/uL 0.83-4.51 [facility] Anion gap in Serum or Plasma Ordered By: Safia Ruelas on 02-04-2025 Anion gap [Moles/Vol] 12 mmol/L 5-15 [facility] Automated lymphocyte count a s percentage of total leukocytesOrdered By: Safia Ruelas on 02-04-2025 Lymphocytes/100 WBC Auto (Unsp spec) 36.1 % 19-41 [facility] BUN/creatinine ratioOrdered By: Safia Ruelas on 02-04-2025 Urea nitrogen/Creatinine [Mass ratio] 21.0 mg/mg High 10-20 [facility] Basophil percentageOrdered B y: Safia Ruelas on 02-04-2025 Basophils/100 WBC (Bld) 0.7 % 0-1 [facility] Carbon dioxide, total [Moles /volume] in Central venous bloodOrdered By: Safia Ruelas on 02-04-2025 CO2 [Moles/Vol] 23.5 mmol/L 21.0-32.0 [facility] Chloride assayOrdered By: Balbir Ruelas on 02-04-2025 Chloride [Moles/Vol] 103 mmol/L 98-108 [facility] Eosinophil percentageOrdered By: Safia Ruelas on 02-04-2025 Eosinophils/100 WBC (Bld) 2.3 % 0-5 [facility] Erythrocyte distribution wid th ratioOrdered By: Safia Ruelas on 02-04-2025 Erythrocyte distribution width (RBC) [Ratio] 14.5 % 11.6-14.6 [facility] Erythrocyte distribution wid th standard deviationOrdered By: sherry Ruelas on 02-04-2025 Erythrocyte distribution width (RBC) [Ratio] 47.8 fl High 35.1-43.9 [facility] Glomerular filtration rate ( GFR) estimation/1.73 sq m using serum, plasma, or whole bOrdered By: Safia Ruelas on 02-04-2025 GFR/1.73 sq M.predicted among non-blacks MDRD (S/P/Bld) [Vol rate/Area] 85 mL/min/{1.73_m2} >60 [facility] Hematocrit Auto (Bld) [Volum e fraction]Ordered By: Safia Westonmelanie on 02-04-2025 Hematocrit (Bld) [Volume fraction] 38.3 % 37-47 [facility] Hemoglobin measurementOrdere d By: Safia Ruelas on 02-04-2025 Hemoglobin (Bld) [Mass/Vol] 12.4 g/dL 12.0-15.0 [facility] Immature granulocytes/100 WB C Auto (Bld)Ordered By: jean mariejosé antonio Cheoquyen on 02-04-2025 Immature granulocytes/100 WBC (Bld) 0.400 % 0.0-0.9 [facility] MCV (mean corpuscular volume ) determinationOrdered By: Balbirjean mariebaton rougeskye Cheobonimelanie on 02-04-2025 MCV (RBC) [Entitic vol] 90.3 fL 81-99 [facility] Mean corpuscular hemoglobin (MCH) determinationOrdered By: sherry Ruelas on 02-04-2025 MCH (RBC) [Entitic mass] 29.2 pg 27.0-32.0 [facility] Monocyte percentageOrdered B y: Safia Ruelas on 02-04-2025 Monocytes/100 WBC (Bld) 7.9 % 0-10 [facility] Neutrophil percentageOrdered By: jean mariebaton rougeskye Ruelas on 02-04-2025 Neutrophils/100 WBC (Bld) 52.6 % 47-70 [facility] Platelet countOrdered By: Balbir Ruelas on 02-04-2025 Platelets (Bld) [#/Vol] 278 10*3/uL 150-450 [facility] Potassium measurement (mass/ volume)Ordered By: Safia Ruelas on 02-04-2025 Potassium (Unsp spec) [Mass/Vol] 3.4 mmol/L 3.3-5.1 [facility] RBC Auto (Bld) [#/Vol]Ordere d By: Safia Ruelas on 02-04-2025 RBC (Bld) [#/Vol] 4.24 10*6/uL 4.2-5.4 [facility] Serum creatinine measurement (mass/volume)Ordered By: Safia Ruelas on 02-04-2025 Creatinine [Mass/Vol] 0.71 mg/dL 0.70-1.20 [facility] Serum glucose measurement (m ass/volume)Ordered By: Safia Griderbonimelanie on 02-04-2025 Glucose [Mass/Vol] 141 mg/dL High 70-99 [facility] Serum or plasma calcium dayna urement (mass/volume)Ordered By: Safia Ruelas on 02-04-2025 Calcium [Mass/Vol] 9.0 mg/dL 7.6-11.0 [facility] Serum or plasma urea nitroge n measurement (mass/volume)Ordered By: Safia Griderbonimelanie on 02-04-2025 Urea nitrogen [Mass/Vol] 15 mg/dL 4-19 [facility] Sodium levelOrdered By: Leonides josé antonio Jessenia on 02-04-2025 Sodium [Moles/Vol] 139 mmol/L 133-145 [facility] White blood cell (WBC) count Ordered By: Safia Griderbonimelanie on 02-04-2025 WBC (Bld) [#/Vol] 8.4 10*3/uL 4.4-11.0 [facility] Absolute lymphocyte countOrd ered By: Safia Ruelas on 01-28-2025 Lymphocytes Auto (Unsp spec) [#/Vol] 3.03 10*3/uL 0.83-4.51 [facility] Anion gap in Serum or Plasma Ordered By: Safia Ruelas on 01-28-2025 Anion gap [Moles/Vol] 12 mmol/L 5-15 [facility] Automated lymphocyte count a s percentage of total leukocytesOrdered By: Safia Ruelas on 01-28-2025 Lymphocytes/100 WBC Auto (Unsp spec) 36.0 % - [facility] BUN/creatinine ratioOrdered By: Safia Griderbonimelanie on 01-28-2025 Urea nitrogen/Creatinine [Mass ratio] 20.0 mg/mg 10-20 [facility] Basophil percentageOrdered B y: Safia Ruelas on 01-28-2025 Basophils/100 WBC (Bld) 0.6 % 0-1 [facility] Carbon dioxide, total [Moles /volume] in Central venous bloodOrdered By: Safia Ruelas on 01-28-2025 CO2 [Moles/Vol] 24.7 mmol/L 21.0-32.0 [facility] Chloride assayOrdered By: Balbir randallskye Ruelas on 01-28-2025 Chloride [Moles/Vol] 103 mmol/L 98-108 [facility] Eosinophil percentageOrdered By: sherry Ruelas on 01-28-2025 Eosinophils/100 WBC (Bld) 1.8 % 0-5 [facility] Erythrocyte distribution wid th ratioOrdered By: jean mariebaton rougeskye Ruelas on 01-28-2025 Erythrocyte distribution width (RBC) [Ratio] 14.6 % 11.6-14.6 [facility] Erythrocyte distribution wid th standard deviationOrdered By: jean mariebaton rougeskye Ruelas on 01-28-2025 Erythrocyte distribution width (RBC) [Ratio] 48.6 fl High 35.1-43.9 [facility] Glomerular filtration rate ( GFR) estimation/1.73 sq m using serum, plasma, or whole bOrdered By: Safia uRelas on 01-28-2025 GFR/1.73 sq M.predicted among non-blacks MDRD (S/P/Bld) [Vol rate/Area] 88 mL/min/{1.73_m2} >60 [facility] Hematocrit Auto (Bld) [Volum e fraction]Ordered By: Safia Ruelas on 01-28-2025 Hematocrit (Bld) [Volume fraction] 38.1 % 37-47 [facility] Hemoglobin measurementOrdere d By: sherry Ruelas on 01-28-2025 Hemoglobin (Bld) [Mass/Vol] 12.3 g/dL 12.0-15.0 [facility] Immature granulocytes/100 WB C Auto (Bld)Ordered By: Safia Ruelas on 01-28-2025 Immature granulocytes/100 WBC (Bld) 0.400 % 0.0-0.9 [facility] MCV (mean corpuscular volume ) determinationOrdered By: Safia Ruelas on 01-28-2025 MCV (RBC) [Entitic vol] 90.7 fL 81-99 [facility] Mean corpuscular hemoglobin (MCH) determinationOrdered By: Safia Ruelas on 01-28-2025 MCH (RBC) [Entitic mass] 29.3 pg 27.0-32.0 [facility] Monocyte percentageOrdered B y: Safia Ruelas on 01-28-2025 Monocytes/100 WBC (Bld) 8.2 % 0-10 [facility] Neutrophil percentageOrdered By: Safia Ruelas on 01-28-2025 Neutrophils/100 WBC (Bld) 53.0 % 47-70 [facility] Platelet countOrdered By: Balbir Ruelas on 01-28-2025 Platelets (Bld) [#/Vol] 261 10*3/uL 150-450 [facility] Potassium measurement (mass/ volume)Ordered By: Safia Ruelas on 01-28-2025 Potassium (Unsp spec) [Mass/Vol] 3.4 mmol/L 3.3-5.1 [facility] RBC Auto (Bld) [#/Vol]Ordere d By: Safia Ruelas on 01-28-2025 RBC (Bld) [#/Vol] 4.20 10*6/uL 4.2-5.4 [facility] Serum creatinine measurement (mass/volume)Ordered By: Safia Ruelas on 01-28-2025 Creatinine [Mass/Vol] 0.66 mg/dL Low 0.70-1.20 [facility] Serum glucose measurement (m ass/volume)Ordered By: Safia Ruelas on 01-28-2025 Glucose [Mass/Vol] 130 mg/dL High 70-99 [facility] Serum or plasma calcium dayna urement (mass/volume)Ordered By: Safia Ruelas on 01-28-2025 Calcium [Mass/Vol] 9.0 mg/dL 7.6-11.0 [facility] Serum or plasma urea nitroge n measurement (mass/volume)Ordered By: Safia Ruelas on 01-28-2025 Urea nitrogen [Mass/Vol] 13 mg/dL 4-19 [facility] Sodium levelOrdered By: Leonides josé antonio Jessenia on 01-28-2025 Sodium [Moles/Vol] 140 mmol/L 133-145 [facility] White blood cell (WBC) count Ordered By: Safia Ruelas on 01-28-2025 WBC (Bld) [#/Vol] 8.4 10*3/uL 4.4-11.0 [facility] Absolute lymphocyte countOrd ered By: Safia Ruelas on 01-21-2025 Lymphocytes Auto (Unsp spec) [#/Vol] 3.26 10*3/uL 0.83-4.51 [facility] Anion gap in Serum or Plasma Ordered By: Safia Ruelas on 01-21-2025 Anion gap [Moles/Vol] 13 mmol/L 5-15 [facility] Automated lymphocyte count a s percentage of total leukocytesOrdered By: Safia Ruelas on 01-21-2025 Lymphocytes/100 WBC Auto (Unsp spec) 38.3 % 19-41 [facility] BUN/creatinine ratioOrdered By: Safia Ruelas on 01-21-2025 Urea nitrogen/Creatinine [Mass ratio] 20.0 mg/mg 10-20 [facility] Basophil percentageOrdered B y: Safia Ruelas on 01-21-2025 Basophils/100 WBC (Bld) 0.6 % 0-1 [facility] Carbon dioxide, total [Moles /volume] in Central venous bloodOrdered By: Safia Ruelas on 01-21-2025 CO2 [Moles/Vol] 22.3 mmol/L 21.0-32.0 [facility] Chloride assayOrdered By: Balbir Ruelas on 01-21-2025 Chloride [Moles/Vol] 102 mmol/L 98-108 [facility] Eosinophil percentageOrdered By: Safia Ruelas on 01-21-2025 Eosinophils/100 WBC (Bld) 2.1 % 0-5 [facility] Erythrocyte distribution wid th ratioOrdered By: Safia Ruelas on 01-21-2025 Erythrocyte distribution width (RBC) [Ratio] 14.4 % 11.6-14.6 [facility] Erythrocyte distribution wid th standard deviationOrdered By: Safia Ruelas on 01-21-2025 Erythrocyte distribution width (RBC) [Ratio] 47.1 fl High 35.1-43.9 [facility] Glomerular filtration rate ( GFR) estimation/1.73 sq m using serum, plasma, or whole bOrdered By: Safia Ruelas on 01-21-2025 GFR/1.73 sq M.predicted among non-blacks MDRD (S/P/Bld) [Vol rate/Area] 86 mL/min/{1.73_m2} >60 [facility] Hematocrit Auto (Bld) [Volum e fraction]Ordered By: Safia Ruelas on 01-21-2025 Hematocrit (Bld) [Volume fraction] 37.8 % 37-47 [facility] Hemoglobin measurementOrdere d By: Safia Ruelas on 01-21-2025 Hemoglobin (Bld) [Mass/Vol] 12.6 g/dL 12.0-15.0 [facility] Immature granulocytes/100 WB C Auto (Bld)Ordered By: Safia Ruelas 01-21-2025 Immature granulocytes/100 WBC (Bld) 0.400 % 0.0-0.9 [facility] MCV (mean corpuscular volume ) determinationOrdered By: Safia Ruelas 01-21-2025 MCV (RBC) [Entitic vol] 89.6 fL 81-99 [facility] Mean corpuscular hemoglobin (MCH) determinationOrdered By: Safia Ruelas 01-21-2025 MCH (RBC) [Entitic mass] 29.9 pg 27.0-32.0 [facility] Monocyte percentageOrdered B y: Safia Ruelas on 01-21-2025 Monocytes/100 WBC (Bld) 6.9 % 0-10 [facility] Neutrophil percentageOrdered By: Safia Ruelas 01-21-2025 Neutrophils/100 WBC (Bld) 51.7 % 47-70 [facility] Platelet countOrdered By: Balbir Ruelas on 01-21-2025 Platelets (Bld) [#/Vol] 280 10*3/uL 150-450 [facility] Potassium measurement (mass/ volume)Ordered By: Safia Ruelas on 01-21-2025 Potassium (Unsp spec) [Mass/Vol] 3.6 mmol/L 3.3-5.1 [facility] RBC Auto (Bld) [#/Vol]Ordere d By: Safia Ruelas on 01-21-2025 RBC (Bld) [#/Vol] 4.22 10*6/uL 4.2-5.4 [facility] Serum creatinine measurement (mass/volume)Ordered By: Safia Ruelas on 01-21-2025 Creatinine [Mass/Vol] 0.71 mg/dL 0.70-1.20 [facility] Serum glucose measurement (m ass/volume)Ordered By: Safia Ruelas on 01-21-2025 Glucose [Mass/Vol] 126 mg/dL High 70-99 [facility] Serum or plasma calcium dayna urement (mass/volume)Ordered By: Safia Ruelas on 01-21-2025 Calcium [Mass/Vol] 9.0 mg/dL 7.6-11.0 [facility] Serum or plasma urea nitroge n measurement (mass/volume)Ordered By: Safia Ruelas on 01-21-2025 Urea nitrogen [Mass/Vol] 14 mg/dL 4-19 [facility] Sodium levelOrdered By: Leonides jiméneztadmelanie Ruelas on 01-21-2025 Sodium [Moles/Vol] 137 mmol/L 133-145 [facility] White blood cell (WBC) count Ordered By: Safia Ruelas on 01-21-2025 WBC (Bld) [#/Vol] 8.5 10*3/uL 4.4-11.0 [facility] Absolute lymphocyte countOrd ered By: Safia Ruelas on 01-14-2025 Lymphocytes Auto (Unsp spec) [#/Vol] 2.54 10*3/uL 0.83-4.51 [facility] Anion gap in Serum or Plasma Ordered By: Safia Ruelas on 01-14-2025 Anion gap [Moles/Vol] 13 mmol/L 5-15 [facility] Automated lymphocyte count a s percentage of total leukocytesOrdered By: Safia Ruelas on 01-14-2025 Lymphocytes/100 WBC Auto (Unsp spec) 30.6 % 19-41 [facility] BUN/creatinine ratioOrdered By: Safia Ruelas on 01-14-2025 Urea nitrogen/Creatinine [Mass ratio] 16.0 mg/mg 10-20 [facility] Basophil percentageOrdered B y: Safia Ruelas on 01-14-2025 Basophils/100 WBC (Bld) 0.6 % 0-1 [facility] Carbon dioxide, total [Moles /volume] in Central venous bloodOrdered By: Safia Ruelas on 01-14-2025 CO2 [Moles/Vol] 22.8 mmol/L 21.0-32.0 [facility] Chloride assayOrdered By: Balbir Ruelas on 01-14-2025 Chloride [Moles/Vol] 104 mmol/L 98-108 [facility] Eosinophil percentageOrdered By: Safia Ruelas on 01-14-2025 Eosinophils/100 WBC (Bld) 2.2 % 0-5 [facility] Erythrocyte distribution wid th ratioOrdered By: Safia Ruelas on 01-14-2025 Erythrocyte distribution width (RBC) [Ratio] 14.6 % 11.6-14.6 [facility] Erythrocyte distribution wid th standard deviationOrdered By: Safia Ruelas on 01-14-2025 Erythrocyte distribution width (RBC) [Ratio] 48.7 fl High 35.1-43.9 [facility] Glomerular filtration rate ( GFR) estimation/1.73 sq m using serum, plasma, or whole bOrdered By: Safia Ruelas on 01-14-2025 GFR/1.73 sq M.predicted among non-blacks MDRD (S/P/Bld) [Vol rate/Area] 84 mL/min/{1.73_m2} >60 [facility] Hematocrit Auto (Bld) [Volum e fraction]Ordered By: Safia Ruelas on 01-14-2025 Hematocrit (Bld) [Volume fraction] 37.6 % 37-47 [facility] Hemoglobin measurementOrdere d By: Balbirjean mariejosé antonio Cheobonimelanie on 01-14-2025 Hemoglobin (Bld) [Mass/Vol] 12.1 g/dL 12.0-15.0 [facility] Immature granulocytes/100 WB C Auto (Bld)Ordered By: Safia Ruelas on 01-14-2025 Immature granulocytes/100 WBC (Bld) 0.500 % 0.0-0.9 [facility] MCV (mean corpuscular volume ) determinationOrdered By: Safia Ruelas on 01-14-2025 MCV (RBC) [Entitic vol] 90.8 fL 81-99 [facility] Mean corpuscular hemoglobin (MCH) determinationOrdered By: jean mariebaton rougeskye Ruelas on 01-14-2025 MCH (RBC) [Entitic mass] 29.2 pg 27.0-32.0 [facility] Monocyte percentageOrdered B y: Safia Ruelas on 01-14-2025 Monocytes/100 WBC (Bld) 7.8 % 0-10 [facility] Neutrophil percentageOrdered By: jean mariebaton rougeskye Ruelas on 01-14-2025 Neutrophils/100 WBC (Bld) 58.3 % 47-70 [facility] Platelet countOrdered By: Balbir randallskye Ruelas on 01-14-2025 Platelets (Bld) [#/Vol] 284 10*3/uL 150-450 [facility] Potassium measurement (mass/ volume)Ordered By: Safia Ruelas on 01-14-2025 Potassium (Unsp spec) [Mass/Vol] 3.5 mmol/L 3.3-5.1 [facility] RBC Auto (Bld) [#/Vol]Ordere d By: Safia Ruelas on 01-14-2025 RBC (Bld) [#/Vol] 4.14 10*6/uL Low 4.2-5.4 [facility] Serum creatinine measurement (mass/volume)Ordered By: Safia Ruelas on 01-14-2025 Creatinine [Mass/Vol] 0.73 mg/dL 0.70-1.20 [facility] Serum glucose measurement (m ass/volume)Ordered By: Safia Ruelas on 01-14-2025 Glucose [Mass/Vol] 137 mg/dL High 70-99 [facility] Serum or plasma calcium dayna urement (mass/volume)Ordered By: Safia Ruelas on 01-14-2025 Calcium [Mass/Vol] 8.8 mg/dL 7.6-11.0 [facility] Serum or plasma urea nitroge n measurement (mass/volume)Ordered By: Safia Ruelas on 01-14-2025 Urea nitrogen [Mass/Vol] 12 mg/dL 4-19 [facility] Sodium levelOrdered By: Leonides jiménezradha Jessenia on 01-14-2025 Sodium [Moles/Vol] 139 mmol/L 133-145 [facility] TSH DL <= 0.005 mIU/L QnOrde red By: Safia Ruelas on 01-14-2025 TSH Qn 1.730 uIU/mL 0.300-4.200 [facility] White blood cell (WBC) count Ordered By: Safia Ruelas on 01-14-2025 WBC (Bld) [#/Vol] 8.3 10*3/uL 4.4-11.0 [facility] Absolute lymphocyte countOrd ered By: Safia Ruelas on 01-07-2025 Lymphocytes Auto (Unsp spec) [#/Vol] 2.90 10*3/uL 0.83-4.51 [facility] Anion gap in Serum or Plasma Ordered By: Safia Ruelas on 01-07-2025 Anion gap [Moles/Vol] 12 mmol/L 5-15 [facility] Automated lymphocyte count a s percentage of total leukocytesOrdered By: Safia Ruelas on 01-07-2025 Lymphocytes/100 WBC Auto (Unsp spec) 36.3 % 19-41 [facility] BUN/creatinine ratioOrdered By: Safia Ruelas on 01-07-2025 Urea nitrogen/Creatinine [Mass ratio] 15.4 mg/mg 10-20 [facility] Basophil percentageOrdered B y: Safia Ruelas on 01-07-2025 Basophils/100 WBC (Bld) 0.6 % 0-1 [facility] Carbon dioxide, total [Moles /volume] in Central venous bloodOrdered By: Safia Ruelas on 01-07-2025 CO2 [Moles/Vol] 23.2 mmol/L 21.0-32.0 [facility] Chloride assayOrdered By: Balbir jean mariejosé antonio Ruelas on 01-07-2025 Chloride [Moles/Vol] 104 mmol/L 98-108 [facility] Eosinophil percentageOrdered By: jean mariebaton rougeskye Griderbonimelanie on 01-07-2025 Eosinophils/100 WBC (Bld) 2.3 % 0-5 [facility] Erythrocyte distribution wid th ratioOrdered By: jean mariebaton rougeskye Ruelas on 01-07-2025 Erythrocyte distribution width (RBC) [Ratio] 14.6 % 11.6-14.6 [facility] Erythrocyte distribution wid th standard deviationOrdered By: Leonidesbaton rougeskye Ruelas on 01-07-2025 Erythrocyte distribution width (RBC) [Ratio] 48.5 fl High 35.1-43.9 [facility] Glomerular filtration rate ( GFR) estimation/1.73 sq m using serum, plasma, or whole bOrdered By: Safia Ruelas on 01-07-2025 GFR/1.73 sq M.predicted among non-blacks MDRD (S/P/Bld) [Vol rate/Area] 86 mL/min/{1.73_m2} >60 [facility] Hematocrit Auto (Bld) [Volum e fraction]Ordered By: Safia Ruelas on 01-07-2025 Hematocrit (Bld) [Volume fraction] 36.6 % Low 37-47 [facility] Hemoglobin measurementOrdere d By: Safia Ruelas on 01-07-2025 Hemoglobin (Bld) [Mass/Vol] 11.9 g/dL Low 12.0-15.0 [facility] Immature granulocytes/100 WB C Auto (Bld)Ordered By: Safia Ruelas on 01-07-2025 Immature granulocytes/100 WBC (Bld) 0.300 % 0.0-0.9 [facility] MCV (mean corpuscular volume ) determinationOrdered By: Balbirjean mariedesireeskye Griderbonimelanie on 01-07-2025 MCV (RBC) [Entitic vol] 90.6 fL 81-99 [facility] Mean corpuscular hemoglobin (MCH) determinationOrdered By: Safia Cheoquyen on 01-07-2025 MCH (RBC) [Entitic mass] 29.5 pg 27.0-32.0 [facility] Monocyte percentageOrdered B y: [place]e Griderbonimelanie on 01-07-2025 Monocytes/100 WBC (Bld) 7.9 % 0-10 [facility] Neutrophil percentageOrdered By: Safia Cheoquyen on 01-07-2025 Neutrophils/100 WBC (Bld) 52.6 % 47-70 [facility] Platelet countOrdered By: Balbir sherry Cheoquyen on 01-07-2025 Platelets (Bld) [#/Vol] 263 10*3/uL 150-450 [facility] Potassium measurement (mass/ volume)Ordered By: Safia Griderbonimelanie on 01-07-2025 Potassium (Unsp spec) [Mass/Vol] 3.5 mmol/L 3.3-5.1 [facility] RBC Auto (Bld) [#/Vol]Ordere d By: Balbirjean mariejosé antonio Cheoquyen on 01-07-2025 RBC (Bld) [#/Vol] 4.04 10*6/uL Low 4.2-5.4 [facility] Serum creatinine measurement (mass/volume)Ordered By: Safia Ruelas on 01-07-2025 Creatinine [Mass/Vol] 0.71 mg/dL 0.70-1.20 [facility] Serum glucose measurement (m ass/volume)Ordered By: Safia Ruelas on 01-07-2025 Glucose [Mass/Vol] 139 mg/dL High 70-99 [facility] Serum or plasma calcium dayna urement (mass/volume)Ordered By: Safia Ruelas on 01-07-2025 Calcium [Mass/Vol] 8.5 mg/dL 7.6-11.0 [facility] Serum or plasma urea nitroge n measurement (mass/volume)Ordered By: Balbirjean mariedesireeskye Griderbonimelanie on 01-07-2025 Urea nitrogen [Mass/Vol] 11 mg/dL 4- [facility] Sodium levelOrdered By: Leonides Ruelas on 01-07-2025 Sodium [Moles/Vol] 139 mmol/L 133-145 [facility] White blood cell (WBC) count Ordered By: Balbirjean mariejosé antonio Cheoquyen on 01-07-2025 WBC (Bld) [#/Vol] 8.0 10*3/uL 4.4-11.0 [facility] Absolute lymphocyte countOrd ered By: Balbirjean mariejosé antonio Cheoquyen on 12-31-2024 Lymphocytes Auto (Unsp spec) [#/Vol] 2.27 10*3/uL 0.83-4.51 [facility] Anion gap in Serum or Plasma Ordered By: Leonidesjosé antonio Cheobonimelanie on 12-31-2024 Anion gap [Moles/Vol] 14 mmol/L 5-15 [facility] Automated lymphocyte count a s percentage of total leukocytesOrdered By: Safia Ruelas on 12-31-2024 Lymphocytes/100 WBC Auto (Unsp spec) 32.9 % 19-41 [facility] BUN/creatinine ratioOrdered By: Leonidesdesireeskye Griderbonimelanie on 12-31-2024 Urea nitrogen/Creatinine [Mass ratio] 15.0 mg/mg 10-20 [facility] Basophil percentageOrdered B y: Safia Cheobonimelanie on 12-31-2024 Basophils/100 WBC (Bld) 0.6 % 0-1 [facility] Carbon dioxide, total [Moles /volume] in Central venous bloodOrdered By: Balbirjean mariejosé antonio Cheobonimelanie on 12-31-2024 CO2 [Moles/Vol] 22.1 mmol/L 21.0-32.0 [facility] Chloride assayOrdered By: Balbir jean mariejosé antonio Griderbonimelanie on 12-31-2024 Chloride [Moles/Vol] 103 mmol/L 98-108 [facility] Eosinophil percentageOrdered By: Leonidesdesireeskye Griderbonimelanie on 12-31-2024 Eosinophils/100 WBC (Bld) 3.2 % 0-5 [facility] Erythrocyte distribution wid th ratioOrdered By: Safia Ruelas on 12-31-2024 Erythrocyte distribution width (RBC) [Ratio] 14.6 % 11.6-14.6 [facility] Erythrocyte distribution wid th standard deviationOrdered By: Safia Ruelas on 12-31-2024 Erythrocyte distribution width (RBC) [Ratio] 48.9 fl High 35.1-43.9 [facility] Glomerular filtration rate ( GFR) estimation/1.73 sq m using serum, plasma, or whole bOrdered By: Safia Ruelas on 12-31-2024 GFR/1.73 sq M.predicted among non-blacks MDRD (S/P/Bld) [Vol rate/Area] 88 mL/min/{1.73_m2} >60 [facility] Hematocrit Auto (Bld) [Volum e fraction]Ordered By: Leonidesbaton rougeskye Ruelas on 12-31-2024 Hematocrit (Bld) [Volume fraction] 36.8 % Low 37-47 [facility] Hemoglobin A1c percentageOrd ered By: Safia Ruelas on 12-31-2024 HbA1c (Bld) [Mass fraction] 6.5 % High <5.7 [facility] Hemoglobin measurementOrdere d By: Safia Ruelas on 12-31-2024 Hemoglobin (Bld) [Mass/Vol] 11.8 g/dL Low 12.0-15.0 [facility] Immature granulocytes/100 WB C Auto (Bld)Ordered By: Safia Ruelas on 12-31-2024 Immature granulocytes/100 WBC (Bld) 0.300 % 0.0-0.9 [facility] MCV (mean corpuscular volume ) determinationOrdered By: Safia Ruelas on 12-31-2024 MCV (RBC) [Entitic vol] 91.3 fL 81-99 [facility] Mean corpuscular hemoglobin (MCH) determinationOrdered By: Safia Ruelas on 12-31-2024 MCH (RBC) [Entitic mass] 29.3 pg 27.0-32.0 [facility] Monocyte percentageOrdered B y: Safia Ruelas on 12-31-2024 Monocytes/100 WBC (Bld) 9.4 % 0-10 [facility] [facility] [place] Neutrophil percentageOrdered By: Safia Ruelas on 12-31-2024 Neutrophils/100 WBC (Bld) 53.6 % 47-70 [facility] Platelet countOrdered By: Balbir Ruelas on 12-31-2024 Platelets (Bld) [#/Vol] 232 10*3/uL 150-450 [facility] Potassium measurement (mass/ volume)Ordered By: Safia Ruelas on 12-31-2024 Potassium (Unsp spec) [Mass/Vol] 3.5 mmol/L 3.3-5.1 [facility] RBC Auto (Bld) [#/Vol]Ordere d By: Safia Ruelas on 12-31-2024 RBC (Bld) [#/Vol] 4.03 10*6/uL Low 4.2-5.4 [facility] Serum creatinine measurement (mass/volume)Ordered By: Safia Ruelas on 12-31-2024 Creatinine [Mass/Vol] 0.70 mg/dL 0.70-1.20 [facility] Serum glucose measurement (m ass/volume)Ordered By: Safia Ruelas on 12-31-2024 Glucose [Mass/Vol] 142 mg/dL High 70-99 [facility] Serum or plasma calcium dayna urement (mass/volume)Ordered By: Safia Ruelas on 12-31-2024 Calcium [Mass/Vol] 8.4 mg/dL 7.6-11.0 [facility] Serum or plasma urea nitroge n measurement (mass/volume)Ordered By: Safia Ruelas on 12-31-2024 Urea nitrogen [Mass/Vol] 10 mg/dL 4-19 [facility] Sodium levelOrdered By: Leonides Ruelas on 12-31-2024 Sodium [Moles/Vol] 139 mmol/L 133-145 [facility] White blood cell (WBC) count Ordered By: Safia Ruelas on 12-31-2024 WBC (Bld) [#/Vol] 6.9 10*3/uL 4.4-11.0 [facility] Absolute lymphocyte countOrd ered By: Safia Ruelas on 12-24-2024 Lymphocytes Auto (Unsp spec) [#/Vol] 2.54 10*3/uL 0.83-4.51 [facility] Anion gap in Serum or Plasma Ordered By: Safia Ruelas on 12-24-2024 Anion gap [Moles/Vol] 14 mmol/L 5-15 [facility] Automated lymphocyte count a s percentage of total leukocytesOrdered By: Safia Griderbonimelanie on 12-24-2024 Lymphocytes/100 WBC Auto (Unsp spec) 28.0 % 19-41 [facility] BUN/creatinine ratioOrdered By: Safia Griderbonimelanie on 12-24-2024 Urea nitrogen/Creatinine [Mass ratio] 18.4 mg/mg 10-20 [facility] Basophil percentageOrdered B y: Safia Ruelas on 12-24-2024 Basophils/100 WBC (Bld) 0.8 % 0-1 [facility] [place] Carbon dioxide, total [Moles /volume] in Central venous bloodOrdered By: Safia Ruelas on 12-24-2024 CO2 [Moles/Vol] 22.1 mmol/L 21.0-32.0 [facility] Chloride assayOrdered By: Balbir jean mariejosé antonio Ruelas on 12-24-2024 Chloride [Moles/Vol] 101 mmol/L 98-108 [facility] Eosinophil percentageOrdered By: Safia Ruelas on 12-24-2024 Eosinophils/100 WBC (Bld) 2.6 % 0-5 [facility] Erythrocyte distribution wid th ratioOrdered By: Safia Ruelas on 12-24-2024 Erythrocyte distribution width (RBC) [Ratio] 14.4 % 11.6-14.6 [facility] Erythrocyte distribution wid th standard deviationOrdered By: Safia Griderbonimelanie on 12-24-2024 Erythrocyte distribution width (RBC) [Ratio] 48.8 fl High 35.1-43.9 [facility] Glomerular filtration rate ( GFR) estimation/1.73 sq m using serum, plasma, or whole bOrdered By: Safia Ruelas on 12-24-2024 GFR/1.73 sq M.predicted among non-blacks MDRD (S/P/Bld) [Vol rate/Area] 83 mL/min/{1.73_m2} >60 [facility] Hematocrit Auto (Bld) [Volum e fraction]Ordered By: Safia Ruelas on 12-24-2024 Hematocrit (Bld) [Volume fraction] 37.9 % 37-47 [facility] Hemoglobin measurementOrdere d By: Leonidesjosé antonio Cheobonimelanie on 12-24-2024 Hemoglobin (Bld) [Mass/Vol] 12.2 g/dL 12.0-15.0 [facility] Immature granulocytes/100 WB C Auto (Bld)Ordered By: Safia Griderbonimelanie on 12-24-2024 Immature granulocytes/100 WBC (Bld) 0.400 % 0.0-0.9 [facility] MCV (mean corpuscular volume ) determinationOrdered By: Safia Griderbonimelanie on 12-24-2024 MCV (RBC) [Entitic vol] 92.2 fL 81-99 [facility] Mean corpuscular hemoglobin (MCH) determinationOrdered By: Safia Griderbonimelanie on 12-24-2024 MCH (RBC) [Entitic mass] 29.7 pg 27.0-32.0 [facility] Monocyte percentageOrdered B y: Balbirjean mariedesireeskye Griderbonimelanie on 12-24-2024 Monocytes/100 WBC (Bld) 8.7 % 0-10 [facility] Neutrophil percentageOrdered By: Leonidesbaton rougeskye Griderbonimelanie on 12-24-2024 Neutrophils/100 WBC (Bld) 59.5 % 47-70 [facility] Platelet countOrdered By: Balbir sherry Cheobonimelanie on 12-24-2024 Platelets (Bld) [#/Vol] 256 10*3/uL 150-450 [facility] Potassium measurement (mass/ volume)Ordered By: Balbirjean mariedesireeskye Griderbonimelanie on 12-24-2024 Potassium (Unsp spec) [Mass/Vol] 3.4 mmol/L 3.3-5.1 [facility] RBC Auto (Bld) [#/Vol]Ordere d By: Leonidesjosé antonio Cheobonimelanie on 12-24-2024 RBC (Bld) [#/Vol] 4.11 10*6/uL Low 4.2-5.4 [facility] Serum creatinine measurement (mass/volume)Ordered By: Safia Ruelas on 12-24-2024 Creatinine [Mass/Vol] 0.73 mg/dL 0.70-1.20 [facility] Serum glucose measurement (m ass/volume)Ordered By: Safia Griderbonimelanie on 12-24-2024 Glucose [Mass/Vol] 142 mg/dL High 70-99 [facility] Serum or plasma calcium dayna urement (mass/volume)Ordered By: Safia Ruelas on 12-24-2024 Calcium [Mass/Vol] 9.1 mg/dL 7.6-11.0 [facility] Serum or plasma urea nitroge n measurement (mass/volume)Ordered By: Safia Ruelas on 12-24-2024 Urea nitrogen [Mass/Vol] 13 mg/dL 4-19 [facility] Sodium levelOrdered By: Leonides josé antonio Jessenia on 12-24-2024 Sodium [Moles/Vol] 137 mmol/L 133-145 [facility] White blood cell (WBC) count Ordered By: Safia Griderbonimelanie on 12-24-2024 WBC (Bld) [#/Vol] 9.1 10*3/uL 4.4-11.0 [facility] Absolute lymphocyte countOrd ered By: Safia Ruelas on 12-17-2024 Lymphocytes Auto (Unsp spec) [#/Vol] 2.94 10*3/uL 0.83-4.51 [facility] Anion gap in Serum or Plasma Ordered By: Safia Ruelas on 12-17-2024 Anion gap [Moles/Vol] 15 mmol/L 5-15 [facility] Automated lymphocyte count a s percentage of total leukocytesOrdered By: Safia Ruelas on 12-17-2024 Lymphocytes/100 WBC Auto (Unsp spec) 30.5 % 19-41 [facility] BUN/creatinine ratioOrdered By: Safia Ruelas on 12-17-2024 Urea nitrogen/Creatinine [Mass ratio] 23.4 mg/mg High 10-20 [facility] Basophil percentageOrdered B y: Safia Ruelas on 12-17-2024 Basophils/100 WBC (Bld) 0.7 % 0-1 [facility] Carbon dioxide, total [Moles /volume] in Central venous bloodOrdered By: Safia Ruelas on 12-17-2024 CO2 [Moles/Vol] 22.1 mmol/L 21.0-32.0 [facility] Chloride assayOrdered By: Balbir Ruelas on 12-17-2024 Chloride [Moles/Vol] 102 mmol/L 98-108 [facility] Eosinophil percentageOrdered By: jean mariebaton rougeskye Ruelas on 12-17-2024 Eosinophils/100 WBC (Bld) 2.3 % 0-5 [facility] Erythrocyte distribution wid th ratioOrdered By: jean mariebaton rougeskye Ruelas on 12-17-2024 Erythrocyte distribution width (RBC) [Ratio] 14.1 % 11.6-14.6 [facility] Erythrocyte distribution wid th standard deviationOrdered By: Leonidesbaton rougeskye Ruelas on 12-17-2024 Erythrocyte distribution width (RBC) [Ratio] 47.3 fl High 35.1-43.9 [facility] Glomerular filtration rate ( GFR) estimation/1.73 sq m using serum, plasma, or whole bOrdered By: Safia Ruelas on 12-17-2024 GFR/1.73 sq M.predicted among non-blacks MDRD (S/P/Bld) [Vol rate/Area] 77 mL/min/{1.73_m2} >60 [facility] Hematocrit Auto (Bld) [Volum e fraction]Ordered By: Safia Ruelas on 12-17-2024 Hematocrit (Bld) [Volume fraction] 40.2 % 37-47 [facility] Hemoglobin measurementOrdere d By: Safia Ruelas on 12-17-2024 Hemoglobin (Bld) [Mass/Vol] 12.7 g/dL 12.0-15.0 [facility] Immature granulocytes/100 WB C Auto (Bld)Ordered By: Safia Ruelas on 12-17-2024 Immature granulocytes/100 WBC (Bld) 0.400 % 0.0-0.9 [facility] MCV (mean corpuscular volume ) determinationOrdered By: Safia Ruelas on 12-17-2024 MCV (RBC) [Entitic vol] 92.2 fL 81-99 [facility] Mean corpuscular hemoglobin (MCH) determinationOrdered By: Safia Ruelas on 12-17-2024 MCH (RBC) [Entitic mass] 29.1 pg 27.0-32.0 [facility] Monocyte percentageOrdered B y: Safia Ruelas on 12-17-2024 Monocytes/100 WBC (Bld) 8.6 % 0-10 [facility] Neutrophil percentageOrdered By: Safia Ruelas on 12-17-2024 Neutrophils/100 WBC (Bld) 57.5 % 47-70 [facility] Platelet countOrdered By: Balbir Ruelas on 12-17-2024 Platelets (Bld) [#/Vol] 287 10*3/uL 150-450 [facility] Potassium measurement (mass/ volume)Ordered By: Safia Ruelas on 12-17-2024 Potassium (Unsp spec) [Mass/Vol] 3.5 mmol/L 3.3-5.1 [facility] RBC Auto (Bld) [#/Vol]Ordere d By: Safia Ruelas on 12-17-2024 RBC (Bld) [#/Vol] 4.36 10*6/uL 4.2-5.4 [facility] Serum creatinine measurement (mass/volume)Ordered By: Safia Ruelas on 12-17-2024 Creatinine [Mass/Vol] 0.78 mg/dL 0.70-1.20 [facility] Serum glucose measurement (m ass/volume)Ordered By: Safia Ruelas on 12-17-2024 Glucose [Mass/Vol] 125 mg/dL High 70-99 [facility] Serum or plasma calcium dayna urement (mass/volume)Ordered By: Safia Ruelas on 12-17-2024 Calcium [Mass/Vol] 9.2 mg/dL 7.6-11.0 [facility] Serum or plasma urea nitroge n measurement (mass/volume)Ordered By: Safia Ruelas on 12-17-2024 Urea nitrogen [Mass/Vol] 18 mg/dL 4-19 [facility] Sodium levelOrdered By: Leonides josé antonio Jessenia on 12-17-2024 Sodium [Moles/Vol] 139 mmol/L 133-145 [facility] White blood cell (WBC) count Ordered By: Safia Ruelas on 12-17-2024 WBC (Bld) [#/Vol] 9.6 10*3/uL 4.4-11.0 [facility] Absolute lymphocyte countOrd ered By: Safia Ruelas on 12-10-2024 Lymphocytes Auto (Unsp spec) [#/Vol] 2.59 10*3/uL 0.83-4.51 [facility] Anion gap in Serum or Plasma Ordered By: Safia Ruelas on 12-10-2024 Anion gap [Moles/Vol] 15 mmol/L 5-15 [facility] Automated lymphocyte count a s percentage of total leukocytesOrdered By: Safia Ruelas on 12-10-2024 Lymphocytes/100 WBC Auto (Unsp spec) 30.2 % 19-41 [facility] BUN/creatinine ratioOrdered By: Safai Ruelas on 12-10-2024 Urea nitrogen/Creatinine [Mass ratio] 25.6 mg/mg High 10-20 [facility] Basophil percentageOrdered B y: Safia Ruelas on 12-10-2024 Basophils/100 WBC (Bld) 0.9 % 0-1 [facility] Carbon dioxide, total [Moles /volume] in Central venous bloodOrdered By: Safia Ruelas on 12-10-2024 CO2 [Moles/Vol] 21.7 mmol/L 21.0-32.0 [facility] Chloride assayOrdered By: Balbir Ruelas on 12-10-2024 Chloride [Moles/Vol] 101 mmol/L 98-108 [facility] Eosinophil percentageOrdered By: Safia Ruelas on 12-10-2024 Eosinophils/100 WBC (Bld) 1.9 % 0-5 [facility] Erythrocyte distribution wid th ratioOrdered By: Safia Ruelas on 12-10-2024 Erythrocyte distribution width (RBC) [Ratio] 13.7 % 11.6-14.6 [facility] Erythrocyte distribution wid th standard deviationOrdered By: Safia Ruelas on 12-10-2024 Erythrocyte distribution width (RBC) [Ratio] 46.8 fl High 35.1-43.9 [facility] Glomerular filtration rate ( GFR) estimation/1.73 sq m using serum, plasma, or whole bOrdered By: Safia Ruelas on 12-10-2024 GFR/1.73 sq M.predicted among non-blacks MDRD (S/P/Bld) [Vol rate/Area] 72 mL/min/{1.73_m2} >60 [facility] Hematocrit Auto (Bld) [Volum e fraction]Ordered By: Leonidesbaton rougeskye Ruelas on 12-10-2024 Hematocrit (Bld) [Volume fraction] 38.8 % 37-47 [facility] Hemoglobin measurementOrdere d By: Safia Ruelas on 12-10-2024 Hemoglobin (Bld) [Mass/Vol] 12.3 g/dL 12.0-15.0 [facility] Immature granulocytes/100 WB C Auto (Bld)Ordered By: Safia Ruelas on 12-10-2024 Immature granulocytes/100 WBC (Bld) 0.500 % 0.0-0.9 [facility] MCV (mean corpuscular volume ) determinationOrdered By: Safia Ruelas on 12-10-2024 MCV (RBC) [Entitic vol] 93.3 fL 81-99 [facility] Mean corpuscular hemoglobin (MCH) determinationOrdered By: jean mariebaton rougeskye Ruelas on 12-10-2024 MCH (RBC) [Entitic mass] 29.6 pg 27.0-32.0 [facility] Monocyte percentageOrdered B y: Safia Ruelas on 12-10-2024 Monocytes/100 WBC (Bld) 8.2 % 0-10 [facility] Neutrophil percentageOrdered By: jean mariebaton rougeskye Ruelas on 12-10-2024 Neutrophils/100 WBC (Bld) 58.3 % 47-70 [facility] Platelet countOrdered By: Balbir Ruelas on 12-10-2024 Platelets (Bld) [#/Vol] 247 10*3/uL 150-450 [facility] Potassium measurement (mass/ volume)Ordered By: Safia Ruelas on 12-10-2024 Potassium (Unsp spec) [Mass/Vol] 3.8 mmol/L 3.3-5.1 [facility] RBC Auto (Bld) [#/Vol]Ordere d By: Safia Ruelas on 12-10-2024 RBC (Bld) [#/Vol] 4.16 10*6/uL Low 4.2-5.4 [facility] Serum creatinine measurement (mass/volume)Ordered By: Safia Ruelas on 12-10-2024 Creatinine [Mass/Vol] 0.82 mg/dL 0.70-1.20 [facility] Serum glucose measurement (m ass/volume)Ordered By: Safia Cheoquyen on 12-10-2024 Glucose [Mass/Vol] 149 mg/dL High 70-99 [facility] Serum or plasma calcium dayna urement (mass/volume)Ordered By: Safia Ruelas on 12-10-2024 Calcium [Mass/Vol] 9.1 mg/dL 7.6-11.0 [facility] Serum or plasma urea nitroge n measurement (mass/volume)Ordered By: Safia Ruelas on 12-10-2024 Urea nitrogen [Mass/Vol] 21 mg/dL High 4-19 [facility] Sodium levelOrdered By: Leonides Ruelas on 12-10-2024 Sodium [Moles/Vol] 137 mmol/L 133-145 [facility] White blood cell (WBC) count Ordered By: Safia Cheoquyen on 12-10-2024 WBC (Bld) [#/Vol] 8.6 10*3/uL 4.4-11.0 [facility] Absolute lymphocyte countOrd ered By: Safia Cheoquyen on 12-03-2024 Lymphocytes Auto (Unsp spec) [#/Vol] 2.81 10*3/uL 0.83-4.51 [facility] Anion gap in Serum or Plasma Ordered By: Safia Ruelas on 12-03-2024 Anion gap [Moles/Vol] 14 mmol/L 5-15 [facility] Automated lymphocyte count a s percentage of total leukocytesOrdered By: Safia Ruelas on 12-03-2024 Lymphocytes/100 WBC Auto (Unsp spec) 28.3 % 19-41 [facility] BUN/creatinine ratioOrdered By: Safia Ruelas on 12-03-2024 Urea nitrogen/Creatinine [Mass ratio] 28.4 mg/mg High 10-20 [facility] Basophil percentageOrdered B y: Safia Ruelas on 12-03-2024 Basophils/100 WBC (Bld) 0.6 % 0-1 [facility] Carbon dioxide, total [Moles /volume] in Central venous bloodOrdered By: Leonidesbaton rougeskye Ruelas on 12-03-2024 CO2 [Moles/Vol] 23.3 mmol/L 21.0-32.0 [facility] Chloride assayOrdered By: Balbir Ruelas on 12-03-2024 Chloride [Moles/Vol] 102 mmol/L 98-108 [facility] Eosinophil percentageOrdered By: Safia Ruelas on 12-03-2024 Eosinophils/100 WBC (Bld) 1.5 % 0-5 [facility] Erythrocyte distribution wid th ratioOrdered By: Safia Ruelas on 12-03-2024 Erythrocyte distribution width (RBC) [Ratio] 14.1 % 11.6-14.6 [facility] Erythrocyte distribution wid th standard deviationOrdered By: Safia Ruelas on 12-03-2024 Erythrocyte distribution width (RBC) [Ratio] 47.9 fl High 35.1-43.9 [facility] Glomerular filtration rate ( GFR) estimation/1.73 sq m using serum, plasma, or whole bOrdered By: Safia Ruelas on 12-03-2024 GFR/1.73 sq M.predicted among non-blacks MDRD (S/P/Bld) [Vol rate/Area] 65 mL/min/{1.73_m2} >60 [facility] Hematocrit Auto (Bld) [Volum e fraction]Ordered By: Safia Griderbonimelanie on 12-03-2024 Hematocrit (Bld) [Volume fraction] 40.0 % 37-47 [facility] Hemoglobin measurementOrdere d By: Safia Ruelas on 12-03-2024 Hemoglobin (Bld) [Mass/Vol] 12.9 g/dL 12.0-15.0 [facility] Immature granulocytes/100 WB C Auto (Bld)Ordered By: Balbirjean mariejosé antonio Cheobonimelanie on 12-03-2024 Immature granulocytes/100 WBC (Bld) 0.300 % 0.0-0.9 [facility] MCV (mean corpuscular volume ) determinationOrdered By: Balbirsherry Griderbonimelanie on 12-03-2024 MCV (RBC) [Entitic vol] 91.3 fL 81-99 [facility] Mean corpuscular hemoglobin (MCH) determinationOrdered By: Balbirsherry Griderbonimelanie on 12-03-2024 MCH (RBC) [Entitic mass] 29.5 pg 27.0-32.0 [facility] Monocyte percentageOrdered B y: Safia Cheobonimelanie on 12-03-2024 Monocytes/100 WBC (Bld) 9.6 % 0-10 [facility] Neutrophil percentageOrdered By: Safia Ruelas on 12-03-2024 Neutrophils/100 WBC (Bld) 59.7 % 47-70 [facility] Platelet countOrdered By: Balbir powell Cheobonimelanie on 12-03-2024 Platelets (Bld) [#/Vol] 280 10*3/uL 150-450 [facility] Potassium measurement (mass/ volume)Ordered By: Balbirjean mariedesireeskye Griderbonimelanie on 12-03-2024 Potassium (Unsp spec) [Mass/Vol] 4.0 mmol/L 3.3-5.1 [facility] RBC Auto (Bld) [#/Vol]Ordere d By: Safia Cheobonimelanie on 12-03-2024 RBC (Bld) [#/Vol] 4.38 10*6/uL 4.2-5.4 [facility] Serum creatinine measurement (mass/volume)Ordered By: Safia Ruelas on 12-03-2024 Creatinine [Mass/Vol] 0.89 mg/dL 0.70-1.20 [facility] Serum glucose measurement (m ass/volume)Ordered By: Safia Ruelas on 12-03-2024 Glucose [Mass/Vol] 77 mg/dL 70-99 [facility] Serum or plasma calcium dayna urement (mass/volume)Ordered By: Safia Griderbonimelanie on 12-03-2024 Calcium [Mass/Vol] 9.6 mg/dL 7.6-11.0 [facility] Serum or plasma urea nitroge n measurement (mass/volume)Ordered By: Safia Ruelas on 12-03-2024 Urea nitrogen [Mass/Vol] 25 mg/dL High 4-19 [facility] Sodium levelOrdered By: Leonides josé antonio Jessenia on 12-03-2024 Sodium [Moles/Vol] 139 mmol/L 133-145 [facility] TSH DL <= 0.005 mIU/L QnOrde red By: Leonidesdesireeskye Griderbonimelanie on 12-03-2024 TSH Qn 3.500 uIU/mL 0.300-4.200 [facility] White blood cell (WBC) count Ordered By: Safia Ruelas on 12-03-2024 WBC (Bld) [#/Vol] 9.9 10*3/uL 4.4-11.0 [facility] Absolute lymphocyte countOrd ered By: Safia Griderbonimelanie on 11-26-2024 Lymphocytes Auto (Unsp spec) [#/Vol] 2.99 10*3/uL 0.83-4.51 [facility] Absolute neutrophil countOrd ered By: Bandarskye Girderbonimelanie on 11-26-2024 Neutrophils (Bld) [#/Vol] 4.2 10*3/uL 2.0-7.7 [facility] Anion gap in Serum or Plasma Ordered By: Safia Griderbonimelanie on 11-26-2024 Anion gap [Moles/Vol] 13 mmol/L - [facility] Automated lymphocyte count a s percentage of total leukocytesOrdered By: Safia Ruelas on 11-26-2024 Lymphocytes/100 WBC Auto (Unsp spec) 37.1 % 19-41 [facility] BUN/creatinine ratioOrdered By: Safia Ruelas on 11-26-2024 Urea nitrogen/Creatinine [Mass ratio] 24.3 mg/mg High 10-20 [facility] Basophil percentageOrdered B y: Safia Ruelas on 11-26-2024 Basophils/100 WBC (Bld) 0.7 % 0-1 [facility] Carbon dioxide, total [Moles /volume] in Central venous bloodOrdered By: Safia Ruelas on 11-26-2024 CO2 [Moles/Vol] 27.1 mmol/L 21.0-32.0 [facility] Chloride assayOrdered By: Balbir Ruelas on 11-26-2024 Chloride [Moles/Vol] 101 mmol/L 98-108 [facility] Eosinophil percentageOrdered By: sherry Ruelas on 11-26-2024 Eosinophils/100 WBC (Bld) 1.9 % 0-5 [facility] Erythrocyte distribution wid th ratioOrdered By: Safia Ruelas on 11-26-2024 Erythrocyte distribution width (RBC) [Ratio] 14.2 % 11.6-14.6 [facility] Erythrocyte distribution wid th standard deviationOrdered By: Safia Ruelas on 11-26-2024 Erythrocyte distribution width (RBC) [Ratio] 48.0 fl High 35.1-43.9 [facility] Glomerular filtration rate ( GFR) estimation/1.73 sq m using serum, plasma, or whole bOrdered By: Safia Ruelas on 11-26-2024 GFR/1.73 sq M.predicted among non-blacks MDRD (S/P/Bld) [Vol rate/Area] 63 mL/min/{1.73_m2} >60 [facility] Comment on above: mL/min/1.73m2 CKD-EP I Creatinine Equation (2020) Hematocrit Auto (Bld) [Volum e fraction]Ordered By: Safia Ruelas on 11-26-2024 Hematocrit (Bld) [Volume fraction] 42.7 % 37-47 [facility] Hemoglobin measurementOrdere d By: Safia Ruelas on 11-26-2024 Hemoglobin (Bld) [Mass/Vol] 13.6 g/dL 12.0-15.0 [facility] Immature granulocytes/100 WB C Auto (Bld)Ordered By: Safia Ruelas on 11-26-2024 Immature granulocytes/100 WBC (Bld) 0.500 % 0.0-0.9 [facility] Comment on above: IG% - Immature Granu locytes (promyelocytes, myelocytes and metamyelocytes) > 1% indicates that a LEFT SHIFT is Present. MCV (mean corpuscular volume ) determinationOrdered By: Safia Ruelas on 11-26-2024 MCV (RBC) [Entitic vol] 92.0 fL 81-99 [facility] Mean corpuscular hemoglobin (MCH) determinationOrdered By: Safia Ruelas on 11-26-2024 MCH (RBC) [Entitic mass] 29.3 pg 27.0-32.0 [facility] Mean corpuscular hemoglobin concentration (MCHC) determinationOrdered By: Safia Ruelas on 11-26-2024 MCHC (RBC) [Mass/Vol] 31.9 g/dL Low 32-36 [facility] Mean platelet volume determi nationOrdered By: Safia Ruelas on 11-26-2024 Platelet mean volume (Bld) [Entitic vol] 11.5 fL 6.2-12.0 [facility] Monocyte percentageOrdered B y: Safia Ruelas on 11-26-2024 Monocytes/100 WBC (Bld) 7.7 % 0-10 [facility] Neutrophil percentageOrdered By: Safia Ruelas on 11-26-2024 Neutrophils/100 WBC (Bld) 52.1 % 47-70 [facility] Nucleated red blood cell per centageOrdered By: Safia Ruelas on 11-26-2024 Nucleated RBC/100 WBC (Bld) [Ratio] 0 % 0-5 [facility] Platelet countOrdered By: Balbir Ruelas on 11-26-2024 Platelets (Bld) [#/Vol] 283 10*3/uL 150-450 [facility] Potassium measurement (mass/ volume)Ordered By: Safia Ruelas on 11-26-2024 Potassium (Unsp spec) [Mass/Vol] 3.8 mmol/L 3.3-5.1 [facility] RBC Auto (Bld) [#/Vol]Ordere d By: Leonidesdesireeskye Griderbonimelanie on 11-26-2024 RBC (Bld) [#/Vol] 4.64 10*6/uL 4.2-5.4 [facility] Serum creatinine measurement (mass/volume)Ordered By: Safia Ruelas on 11-26-2024 Creatinine [Mass/Vol] 0.92 mg/dL 0.70-1.20 [facility] Serum glucose measurement (m ass/volume)Ordered By: Safia Ruelas on 11-26-2024 Glucose [Mass/Vol] 97 mg/dL 70-99 [facility] Serum or plasma calcium dayna urement (mass/volume)Ordered By: Safia Ruelas on 11-26-2024 Calcium [Mass/Vol] 10.0 mg/dL 7.6-11.0 [facility] Serum or plasma urea nitroge n measurement (mass/volume)Ordered By: Safia Ruelas on 11-26-2024 Urea nitrogen [Mass/Vol] 22 mg/dL High 4-19 [facility] Sodium levelOrdered By: Leonides josé antonio Cheobonimelanie on 11-26-2024 Sodium [Moles/Vol] 140 mmol/L 133-145 [facility] White blood cell (WBC) count Ordered By: Safia Ruelas on 11-26-2024 WBC (Bld) [#/Vol] 8.1 10*3/uL 4.4-11.0 [facility] Clostridium difficile detect ion by polymerase chain reactionOrdered By: Safia Ruelas on 11-25-2024 C. difficile DNA CHUCKY+probe Ql (Unsp spec) [facility] Absolute lymphocyte countOrd ered By: Safia Ruelas on 11-19-2024 Lymphocytes Auto (Unsp spec) [#/Vol] 2.71 10*3/uL 0.83-4.51 [facility] Absolute neutrophil countOrd ered By: Safia Ruelas on 11-19-2024 Neutrophils (Bld) [#/Vol] 5.2 10*3/uL 2.0-7.7 [facility] Anion gap in Serum or Plasma Ordered By: Safia Ruelas on 11-19-2024 Anion gap [Moles/Vol] 12 mmol/L 5-15 [facility] Automated lymphocyte count a s percentage of total leukocytesOrdered By: Safia Ruelas on 11-19-2024 Lymphocytes/100 WBC Auto (Unsp spec) 30.4 % 19-41 [facility] BUN/creatinine ratioOrdered By: jean mariebaton rougeskye Ruelas on 11-19-2024 Urea nitrogen/Creatinine [Mass ratio] 25.0 mg/mg High 10-20 [facility] Basophil percentageOrdered B y: Safia Ruelas on 11-19-2024 Basophils/100 WBC (Bld) 0.6 % 0-1 [facility] Carbon dioxide, total [Moles /volume] in Central venous bloodOrdered By: Safia Ruelas on 11-19-2024 CO2 [Moles/Vol] 25.5 mmol/L 21.0-32.0 [facility] Chloride assayOrdered By: Balbir Ruelas on 11-19-2024 Chloride [Moles/Vol] 101 mmol/L 98-108 [facility] Eosinophil percentageOrdered By: jean mariebaton rougeskye Ruelas on 11-19-2024 Eosinophils/100 WBC (Bld) 2.1 % 0-5 [facility] Erythrocyte distribution wid th ratioOrdered By: Safia Ruelas on 11-19-2024 Erythrocyte distribution width (RBC) [Ratio] 13.9 % 11.6-14.6 [facility] Erythrocyte distribution wid th standard deviationOrdered By: sherry Ruelas on 11-19-2024 Erythrocyte distribution width (RBC) [Ratio] 46.6 fl High 35.1-43.9 [facility] Glomerular filtration rate ( GFR) estimation/1.73 sq m using serum, plasma, or whole bOrdered By: Safia Ruelas on 11-19-2024 GFR/1.73 sq M.predicted among non-blacks MDRD (S/P/Bld) [Vol rate/Area] 66 mL/min/{1.73_m2} >60 [facility] Comment on above: mL/min/1.73m2 CKD-EP I Creatinine Equation (2020) Hematocrit Auto (Bld) [Volum e fraction]Ordered By: Safia Ruelas on 11-19-2024 Hematocrit (Bld) [Volume fraction] 39.2 % 37-47 [facility] Hemoglobin measurementOrdere d By: Safia Ruelas on 11-19-2024 Hemoglobin (Bld) [Mass/Vol] 12.7 g/dL 12.0-15.0 [facility] Immature granulocytes/100 WB C Auto (Bld)Ordered By: Safia Ruelas on 11-19-2024 Immature granulocytes/100 WBC (Bld) 0.300 % 0.0-0.9 [facility] Comment on above: IG% - Immature Granu locytes (promyelocytes, myelocytes and metamyelocytes) > 1% indicates that a LEFT SHIFT is Present. MCV (mean corpuscular volume ) determinationOrdered By: Safia Ruelas on 11-19-2024 MCV (RBC) [Entitic vol] 91.4 fL 81-99 [facility] Mean corpuscular hemoglobin (MCH) determinationOrdered By: Safia Ruelas on 11-19-2024 MCH (RBC) [Entitic mass] 29.6 pg 27.0-32.0 [facility] Mean corpuscular hemoglobin concentration (MCHC) determinationOrdered By: Safia Ruelas on 11-19-2024 MCHC (RBC) [Mass/Vol] 32.4 g/dL 32-36 [facility] Mean platelet volume determi nationOrdered By: Safia Ruelas on 11-19-2024 Platelet mean volume (Bld) [Entitic vol] 11.5 fL 6.2-12.0 [facility] Monocyte percentageOrdered B y: Safia Ruelas on 11-19-2024 Monocytes/100 WBC (Bld) 7.8 % 0-10 [facility] Neutrophil percentageOrdered By: Safia Ruelas on 11-19-2024 Neutrophils/100 WBC (Bld) 58.8 % 47-70 [facility] Nucleated red blood cell per centageOrdered By: Safia Cheoquyen on 11-19-2024 Nucleated RBC/100 WBC (Bld) [Ratio] 0 % 0-5 [facility] Platelet countOrdered By: Balbir sherry Cheobonimelanie on 11-19-2024 Platelets (Bld) [#/Vol] 300 10*3/uL 150-450 [facility] Potassium measurement (mass/ volume)Ordered By: Safia Griderbonimelanie on 11-19-2024 Potassium (Unsp spec) [Mass/Vol] 3.8 mmol/L 3.3-5.1 [facility] RBC Auto (Bld) [#/Vol]Ordere d By: Leonidesdesireeskye Griderbonimelanie on 11-19-2024 RBC (Bld) [#/Vol] 4.29 10*6/uL 4.2-5.4 [facility] Serum creatinine measurement (mass/volume)Ordered By: Safia Ruelas on 11-19-2024 Creatinine [Mass/Vol] 0.88 mg/dL 0.70-1.20 [facility] Serum glucose measurement (m ass/volume)Ordered By: Balbirjean mariedesireeskye Ruelas on 11-19-2024 Glucose [Mass/Vol] 136 mg/dL High 70-99 [facility] Serum or plasma calcium dayna urement (mass/volume)Ordered By: Leonidesdesireeskye Griderbonimelanie on 11-19-2024 Calcium [Mass/Vol] 9.6 mg/dL 7.6-11.0 [facility] Serum or plasma urea nitroge n measurement (mass/volume)Ordered By: Safia Ruelas on 11-19-2024 Urea nitrogen [Mass/Vol] 22 mg/dL High 4-19 [facility] Sodium levelOrdered By: Balbirjean marie josé antonio Cheobonimelanie on 11-19-2024 Sodium [Moles/Vol] 139 mmol/L 133-145 [facility] White blood cell (WBC) count Ordered By: Safia Ruelas on 11-19-2024 WBC (Bld) [#/Vol] 8.9 10*3/uL 4.4-11.0 [facility] Absolute lymphocyte countOrd ered By: Leonidesjosé antonio Cheobonimelanie on 11-12-2024 Lymphocytes Auto (Unsp spec) [#/Vol] 2.49 10*3/uL 0.83-4.51 [facility] Absolute neutrophil countOrd ered By: Leonidesdesireeskye Griderbonimelanie on 11-12-2024 Neutrophils (Bld) [#/Vol] 4.2 10*3/uL 2.0-7.7 [facility] Anion gap in Serum or Plasma Ordered By: Safia Ruelas on 11-12-2024 Anion gap [Moles/Vol] 12 mmol/L 5-15 [facility] Automated lymphocyte count a s percentage of total leukocytesOrdered By: Safia Ruelas on 11-12-2024 Lymphocytes/100 WBC Auto (Unsp spec) 31.9 % 19-41 [facility] BUN/creatinine ratioOrdered By: Safia Ruelas on 11-12-2024 Urea nitrogen/Creatinine [Mass ratio] 28.1 mg/mg High 10-20 [facility] Basophil percentageOrdered B y: Safia Ruelas on 11-12-2024 Basophils/100 WBC (Bld) 0.6 % 0-1 [facility] Carbon dioxide, total [Moles /volume] in Central venous bloodOrdered By: Safia Ruelas on 11-12-2024 CO2 [Moles/Vol] 25.1 mmol/L 21.0-32.0 [facility] Chloride assayOrdered By: Balbir Ruelas on 11-12-2024 Chloride [Moles/Vol] 102 mmol/L 98-108 [facility] Eosinophil percentageOrdered By: sherry Ruelas on 11-12-2024 Eosinophils/100 WBC (Bld) 2.8 % 0-5 [facility] Erythrocyte distribution wid th ratioOrdered By: Safia Ruelas on 11-12-2024 Erythrocyte distribution width (RBC) [Ratio] 13.8 % 11.6-14.6 [facility] Erythrocyte distribution wid th standard deviationOrdered By: Safia Ruelas on 11-12-2024 Erythrocyte distribution width (RBC) [Ratio] 46.7 fl High 35.1-43.9 [facility] Glomerular filtration rate ( GFR) estimation/1.73 sq m using serum, plasma, or whole bOrdered By: Safia Ruelas on 11-12-2024 GFR/1.73 sq M.predicted among non-blacks MDRD (S/P/Bld) [Vol rate/Area] 70 mL/min/{1.73_m2} >60 [facility] Comment on above: mL/min/1.73m2 CKD-EP I Creatinine Equation (2020) Hematocrit Auto (Bld) [Volum e fraction]Ordered By: jean mariebaton rougeskye Ruelas on 11-12-2024 Hematocrit (Bld) [Volume fraction] 40.6 % 37-47 [facility] Hemoglobin measurementOrdere d By: Safia Ruelas on 11-12-2024 Hemoglobin (Bld) [Mass/Vol] 13.2 g/dL 12.0-15.0 [facility] Immature granulocytes/100 WB C Auto (Bld)Ordered By: Safia Ruelas on 11-12-2024 Immature granulocytes/100 WBC (Bld) 0.400 % 0.0-0.9 [facility] Comment on above: IG% - Immature Granu locytes (promyelocytes, myelocytes and metamyelocytes) > 1% indicates that a LEFT SHIFT is Present. MCV (mean corpuscular volume ) determinationOrdered By: aSfia Ruelas on 11-12-2024 MCV (RBC) [Entitic vol] 92.1 fL 81-99 [facility] Mean corpuscular hemoglobin (MCH) determinationOrdered By: Safia Ruelas on 11-12-2024 MCH (RBC) [Entitic mass] 29.9 pg 27.0-32.0 [facility] Mean corpuscular hemoglobin concentration (MCHC) determinationOrdered By: jean mariebaton rougeskye Ruelas on 11-12-2024 MCHC (RBC) [Mass/Vol] 32.5 g/dL 32-36 [facility] Mean platelet volume determi nationOrdered By: Safia Ruelas on 11-12-2024 Platelet mean volume (Bld) [Entitic vol] 11.7 fL 6.2-12.0 [facility] Monocyte percentageOrdered B y: Safia Ruelas on 11-12-2024 Monocytes/100 WBC (Bld) 10.0 % 0-10 [facility] Neutrophil percentageOrdered By: Safia Ruelas on 11-12-2024 Neutrophils/100 WBC (Bld) 54.3 % 47-70 [facility] Nucleated red blood cell per centageOrdered By: Safia Ruelas on 11-12-2024 Nucleated RBC/100 WBC (Bld) [Ratio] 0 % 0-5 [facility] Platelet countOrdered By: Balbir Ruelas on 11-12-2024 Platelets (Bld) [#/Vol] 304 10*3/uL 150-450 [facility] Potassium measurement (mass/ volume)Ordered By: Safia Ruelas on 11-12-2024 Potassium (Unsp spec) [Mass/Vol] 3.9 mmol/L 3.3-5.1 [facility] RBC Auto (Bld) [#/Vol]Ordere d By: Safia Ruelas on 11-12-2024 RBC (Bld) [#/Vol] 4.41 10*6/uL 4.2-5.4 [facility] Serum creatinine measurement (mass/volume)Ordered By: Safia Ruelas on 11-12-2024 Creatinine [Mass/Vol] 0.84 mg/dL 0.70-1.20 [facility] Serum glucose measurement (m ass/volume)Ordered By: Safia Ruelas on 11-12-2024 Glucose [Mass/Vol] 112 mg/dL High 70-99 [facility] Serum or plasma calcium dayna urement (mass/volume)Ordered By: Safia Ruelas on 11-12-2024 Calcium [Mass/Vol] 9.7 mg/dL 7.6-11.0 [facility] Serum or plasma urea nitroge n measurement (mass/volume)Ordered By: Safia Ruelas on 11-12-2024 Urea nitrogen [Mass/Vol] 24 mg/dL High 4-19 [facility] Sodium levelOrdered By: Leonides josé antonio Cheobonimelanie on 11-12-2024 Sodium [Moles/Vol] 139 mmol/L 133-145 [facility] White blood cell (WBC) count Ordered By: Leonidesjosé antonio Cheobonimelanie on 11-12-2024 WBC (Bld) [#/Vol] 7.8 10*3/uL 4.4-11.0 [facility] Absolute lymphocyte countOrd ered By: Leonidesdesireeskye Griderbonimelanie on 11-05-2024 Lymphocytes Auto (Unsp spec) [#/Vol] 2.91 10*3/uL 0.83-4.51 [facility] Absolute neutrophil countOrd ered By: Safia Griderbonimelanie on 11-05-2024 Neutrophils (Bld) [#/Vol] 4.6 10*3/uL 2.0-7.7 [facility] Anion gap in Serum or Plasma Ordered By: Safia Griderbonimelanie on 11-05-2024 Anion gap [Moles/Vol] 13 mmol/L 5-15 [facility] Automated lymphocyte count a s percentage of total leukocytesOrdered By: Safia Ruelas on 11-05-2024 Lymphocytes/100 WBC Auto (Unsp spec) 33.7 % 19-41 [facility] BUN/creatinine ratioOrdered By: Safia Griderbonimelanie on 11-05-2024 Urea nitrogen/Creatinine [Mass ratio] 23.3 mg/mg High 10-20 [facility] Basophil percentageOrdered B y: Safia Griderbonimelanie on 11-05-2024 Basophils/100 WBC (Bld) 0.9 % 0-1 [facility] Carbon dioxide, total [Moles /volume] in Central venous bloodOrdered By: Safia Ruelas on 11-05-2024 CO2 [Moles/Vol] 24.2 mmol/L 21.0-32.0 [facility] Chloride assayOrdered By: Balbir Ruelas on 11-05-2024 Chloride [Moles/Vol] 102 mmol/L 98-108 [facility] Eosinophil percentageOrdered By: Safia Ruelas on 11-05-2024 Eosinophils/100 WBC (Bld) 2.7 % 0-5 [facility] Erythrocyte distribution wid th ratioOrdered By: Safia Ruelas on 11-05-2024 Erythrocyte distribution width (RBC) [Ratio] 13.9 % 11.6-14.6 [facility] Erythrocyte distribution wid th standard deviationOrdered By: Safia Ruelas on 11-05-2024 Erythrocyte distribution width (RBC) [Ratio] 47.1 fl High 35.1-43.9 [facility] Glomerular filtration rate ( GFR) estimation/1.73 sq m using serum, plasma, or whole bOrdered By: Safia Ruelas on 11-05-2024 GFR/1.73 sq M.predicted among non-blacks MDRD (S/P/Bld) [Vol rate/Area] 62 mL/min/{1.73_m2} >60 [facility] Comment on above: mL/min/1.73m2 CKD-EP I Creatinine Equation (2020) Hematocrit Auto (Bld) [Volum e fraction]Ordered By: Safia Ruelas on 11-05-2024 Hematocrit (Bld) [Volume fraction] 40.7 % 37-47 [facility] Hemoglobin measurementOrdere d By: Safia Ruelas on 11-05-2024 Hemoglobin (Bld) [Mass/Vol] 12.9 g/dL 12.0-15.0 [facility] Immature granulocytes/100 WB C Auto (Bld)Ordered By: Safia Ruelas 11-05-2024 Immature granulocytes/100 WBC (Bld) 0.500 % 0.0-0.9 [facility] Comment on above: IG% - Immature Granu locytes (promyelocytes, myelocytes and metamyelocytes) > 1% indicates that a LEFT SHIFT is Present. MCV (mean corpuscular volume ) determinationOrdered By: Safia Ruelas on 11-05-2024 MCV (RBC) [Entitic vol] 92.9 fL 81-99 [facility] Mean corpuscular hemoglobin (MCH) determinationOrdered By: Leonidesbaton rougeskye Ruelas 11-05-2024 MCH (RBC) [Entitic mass] 29.5 pg 27.0-32.0 [facility] Mean corpuscular hemoglobin concentration (MCHC) determinationOrdered By: Safia Ruelas on 11-05-2024 MCHC (RBC) [Mass/Vol] 31.7 g/dL Low 32-36 [facility] Mean platelet volume determi nationOrdered By: Safia Ruelas on 11-05-2024 Platelet mean volume (Bld) [Entitic vol] 11.2 fL 6.2-12.0 [facility] Monocyte percentageOrdered B y: Safia Ruelas on 11-05-2024 Monocytes/100 WBC (Bld) 8.6 % 0-10 [facility] Neutrophil percentageOrdered By: Safia Ruelas on 11-05-2024 Neutrophils/100 WBC (Bld) 53.6 % 47-70 [facility] Nucleated red blood cell per centageOrdered By: Safia Ruelas on 11-05-2024 Nucleated RBC/100 WBC (Bld) [Ratio] 0 % 0-5 [facility] Platelet countOrdered By: Balbir Ruelas on 11-05-2024 Platelets (Bld) [#/Vol] 318 10*3/uL 150-450 [facility] Potassium measurement (mass/ volume)Ordered By: Safia Ruelas on 11-05-2024 Potassium (Unsp spec) [Mass/Vol] 4.0 mmol/L 3.3-5.1 [facility] RBC Auto (Bld) [#/Vol]Ordere d By: Safia Ruelas on 11-05-2024 RBC (Bld) [#/Vol] 4.38 10*6/uL 4.2-5.4 [facility] Serum creatinine measurement (mass/volume)Ordered By: Safia Ruelas on 11-05-2024 Creatinine [Mass/Vol] 0.93 mg/dL 0.70-1.20 [facility] Serum glucose measurement (m ass/volume)Ordered By: Safia Ruelas on 11-05-2024 Glucose [Mass/Vol] 70 mg/dL 70-99 [facility] Serum or plasma calcium dayna urement (mass/volume)Ordered By: Safia Ruelas on 11-05-2024 Calcium [Mass/Vol] 9.5 mg/dL 7.6-11.0 [facility] Serum or plasma urea nitroge n measurement (mass/volume)Ordered By: Bandarskye Griderbonimelanie on 11-05-2024 Urea nitrogen [Mass/Vol] 22 mg/dL High 4-19 [facility] Sodium levelOrdered By: Leonides Ruelas on 11-05-2024 Sodium [Moles/Vol] 139 mmol/L 133-145 [facility] White blood cell (WBC) count Ordered By: Balbirjean mariejosé antonio Cheobonimelanie on 11-05-2024 WBC (Bld) [#/Vol] 8.6 10*3/uL 4.4-11.0 [facility] Absolute lymphocyte countOrd ered By: Balbirjean mariejosé antonio Cheobonimelanie on 10-29-2024 Lymphocytes Auto (Unsp spec) [#/Vol] 2.69 10*3/uL 0.83-4.51 [facility] Absolute neutrophil countOrd ered By: Safia Cheobonimelanie on 10-29-2024 Neutrophils (Bld) [#/Vol] 4.5 10*3/uL 2.0-7.7 [facility] Anion gap in Serum or Plasma Ordered By: Balbirjean mariejosé antonio Cheobonimelanie on 10-29-2024 Anion gap [Moles/Vol] 11 mmol/L 5-15 [facility] Automated lymphocyte count a s percentage of total leukocytesOrdered By: Balbirsherry Griderbonimelanie on 10-29-2024 Lymphocytes/100 WBC Auto (Unsp spec) 32.6 % 19-41 [facility] BUN/creatinine ratioOrdered By: Balbirjean mariedesireeskye Griderbonimelanie on 10-29-2024 Urea nitrogen/Creatinine [Mass ratio] 25.2 mg/mg High 10-20 [facility] Basophil percentageOrdered B y: Safia Cheobonimelanie on 10-29-2024 Basophils/100 WBC (Bld) 0.7 % 0-1 [facility] Carbon dioxide, total [Moles /volume] in Central venous bloodOrdered By: Balbirsherry Griderbonimelanie on 10-29-2024 CO2 [Moles/Vol] 25.7 mmol/L 21.0-32.0 [facility] Chloride assayOrdered By: Balbir Ruelas on 10-29-2024 Chloride [Moles/Vol] 102 mmol/L 98-108 [facility] Eosinophil percentageOrdered By: Safia Ruelas on 10-29-2024 Eosinophils/100 WBC (Bld) 2.1 % 0-5 [facility] Erythrocyte distribution wid th ratioOrdered By: Safia Ruelas on 10-29-2024 Erythrocyte distribution width (RBC) [Ratio] 13.6 % 11.6-14.6 [facility] Erythrocyte distribution wid th standard deviationOrdered By: Safia Ruelas on 10-29-2024 Erythrocyte distribution width (RBC) [Ratio] 46.6 fl High 35.1-43.9 [facility] Glomerular filtration rate ( GFR) estimation/1.73 sq m using serum, plasma, or whole bOrdered By: Safia Ruelas on 10-29-2024 GFR/1.73 sq M.predicted among non-blacks MDRD (S/P/Bld) [Vol rate/Area] 59 mL/min/{1.73_m2} Low >60 [facility] Comment on above: mL/min/1.73m2 CKD-EP I Creatinine Equation (2020) Hematocrit Auto (Bld) [Volum e fraction]Ordered By: Sfaia Ruelas on 10-29-2024 Hematocrit (Bld) [Volume fraction] 37.8 % 37-47 [facility] Hemoglobin measurementOrdere d By: Safia Ruelas on 10-29-2024 Hemoglobin (Bld) [Mass/Vol] 12.2 g/dL 12.0-15.0 [facility] Immature granulocytes/100 WB C Auto (Bld)Ordered By: Safia Ruelas 10-29-2024 Immature granulocytes/100 WBC (Bld) 0.400 % 0.0-0.9 [facility] Comment on above: IG% - Immature Granu locytes (promyelocytes, myelocytes and metamyelocytes) > 1% indicates that a LEFT SHIFT is Present. MCV (mean corpuscular volume ) determinationOrdered By: Safia Ruelas on 10-29-2024 MCV (RBC) [Entitic vol] 92.2 fL 81-99 [facility] Mean corpuscular hemoglobin (MCH) determinationOrdered By: Safia Ruelas on 10-29-2024 MCH (RBC) [Entitic mass] 29.8 pg 27.0-32.0 [facility] Mean corpuscular hemoglobin concentration (MCHC) determinationOrdered By: Safia Ruelas on 10-29-2024 MCHC (RBC) [Mass/Vol] 32.3 g/dL 32-36 [facility] Mean platelet volume determi nationOrdered By: Safia Ruelas on 10-29-2024 Platelet mean volume (Bld) [Entitic vol] 11.1 fL 6.2-12.0 [facility] Monocyte percentageOrdered B y: Safia Ruelas on 10-29-2024 Monocytes/100 WBC (Bld) 9.9 % 0-10 [facility] Neutrophil percentageOrdered By: Safia Ruelas on 10-29-2024 Neutrophils/100 WBC (Bld) 54.3 % 47-70 [facility] Nucleated red blood cell per centageOrdered By: Safia Ruelas on 10-29-2024 Nucleated RBC/100 WBC (Bld) [Ratio] 0 % 0-5 [facility] Platelet countOrdered By: Balbir jean mariejosé antonio Ruelas on 10-29-2024 Platelets (Bld) [#/Vol] 283 10*3/uL 150-450 [facility] Potassium measurement (mass/ volume)Ordered By: Safia Ruelas on 10-29-2024 Potassium (Unsp spec) [Mass/Vol] 3.9 mmol/L 3.3-5.1 [facility] RBC Auto (Bld) [#/Vol]Ordere d By: Safia Ruelas on 10-29-2024 RBC (Bld) [#/Vol] 4.10 10*6/uL Low 4.2-5.4 [facility] Serum creatinine measurement (mass/volume)Ordered By: Safia Ruelas on 10-29-2024 Creatinine [Mass/Vol] 0.97 mg/dL 0.70-1.20 [facility] Serum glucose measurement (m ass/volume)Ordered By: Safia Ruelas on 10-29-2024 Glucose [Mass/Vol] 74 mg/dL 70-99 [facility] Serum or plasma calcium dayna urement (mass/volume)Ordered By: Safia Ruelas on 10-29-2024 Calcium [Mass/Vol] 9.5 mg/dL 7.6-11.0 [facility] Serum or plasma urea nitroge n measurement (mass/volume)Ordered By: Safia Ruelas on 10-29-2024 Urea nitrogen [Mass/Vol] 24 mg/dL High 4-19 [facility] Sodium levelOrdered By: Leonides Ruelas on 10-29-2024 Sodium [Moles/Vol] 138 mmol/L 133-145 [facility] White blood cell (WBC) count Ordered By: Safia Ruelas on 10-29-2024 WBC (Bld) [#/Vol] 8.3 10*3/uL 4.4-11.0 [facility] Bilirubin Test strip Ql (U)O rdered By: Safia Ruelas on 10-23-2024 Bilirubin Ql (U) Negative Negative [facility] Ketones Test strip Ql (U)Ord ered By: Safia Ruelas on 10-23-2024 Ketones Ql (U) Negative Negative [facility] Nitrite Test strip Ql (U)Ord ered By: Safia Ruelas on 10-23-2024 Nitrite Ql (U) Positive High Negative [facility] Protein Test strip Ql (U)Ord ered By: Safia Ruelas on 10-23-2024 Protein Ql (U) 15 mg/dl High Negative [facility] Urine clarityOrdered By: Augusto Ruelas on 10-23-2024 Clarity (U) Clear Clear [facility] Urine color determinationOrd ered By: Safia Ruelas on 10-23-2024 Color (U) Yellow Yellow [facility] Urine cultureOrdered By: Augusto Ruelas on 10-23-2024 Bacteria identified Cx Nom (U) Klebsiella pneumoniae sp pneum Abnormal [facility] Urine glucose detectionOrder ed By: Safia Ruelas on 10-23-2024 Glucose Ql (U) Normal mg/dl Normal [facility] Urine leukocyte esterase det ection by dipstickOrdered By: Safia Ruelas on 10-23-2024 Leukocyte esterase Test strip Ql (U) 500 /ul High Negative [facility] Urine pHOrdered By: Mazin Ruelas on 10-23-2024 pH (U) 6.0 [pH] 5.0 - 8.0 [facility] Urine specific gravity measu rementOrdered By: Safia Ruelas on 10-23-2024 Specific gravity (U) [Rel density] 1.010 1.002-1.030 [facility] Urine urobilinogen measureme ntOrdered By: Safia Ruelas on 10-23-2024 Urobilinogen Ql (U) Normal mg/dl Normal [facility] Absolute lymphocyte countOrd ered By: Safia Ruelas on 10-22-2024 Lymphocytes Auto (Unsp spec) [#/Vol] 3.07 10*3/uL 0.83-4.51 [facility] Absolute neutrophil countOrd ered By: Safia Ruelas on 10-22-2024 Neutrophils (Bld) [#/Vol] 4.6 10*3/uL 2.0-7.7 [facility] Anion gap in Serum or Plasma Ordered By: Safia Ruelas on 10-22-2024 Anion gap [Moles/Vol] 15 mmol/L 5-15 [facility] Automated lymphocyte count a s percentage of total leukocytesOrdered By: Safia Ruelas on 10-22-2024 Lymphocytes/100 WBC Auto (Unsp spec) 34.8 % 19-41 [facility] BUN/creatinine ratioOrdered By: Safia Ruelas on 10-22-2024 Urea nitrogen/Creatinine [Mass ratio] 28.6 mg/mg High 10-20 [facility] Basophil percentageOrdered B y: Safia Ruelas on 10-22-2024 Basophils/100 WBC (Bld) 0.9 % 0-1 [facility] Carbon dioxide, total [Moles /volume] in Central venous bloodOrdered By: Safia Ruelas on 10-22-2024 CO2 [Moles/Vol] 23.1 mmol/L 21.0-32.0 [facility] Chloride assayOrdered By: Balbir Ruelas on 10-22-2024 Chloride [Moles/Vol] 100 mmol/L 98-108 [facility] Eosinophil percentageOrdered By: sherry Ruelas on 10-22-2024 Eosinophils/100 WBC (Bld) 3.1 % 0-5 [facility] Erythrocyte distribution wid th ratioOrdered By: jean mariebaton rougeskye Ruelas on 10-22-2024 Erythrocyte distribution width (RBC) [Ratio] 13.6 % 11.6-14.6 [facility] Erythrocyte distribution wid th standard deviationOrdered By: jean mariebaton rougeskye Ruelas on 10-22-2024 Erythrocyte distribution width (RBC) [Ratio] 45.9 fl High 35.1-43.9 [facility] Glomerular filtration rate ( GFR) estimation/1.73 sq m using serum, plasma, or whole bOrdered By: Safia Ruelas on 10-22-2024 GFR/1.73 sq M.predicted among non-blacks MDRD (S/P/Bld) [Vol rate/Area] 60 mL/min/{1.73_m2} >60 [facility] Comment on above: mL/min/1.73m2 CKD-EP I Creatinine Equation (2020) Hematocrit Auto (Bld) [Volum e fraction]Ordered By: Safia Ruelas on 10-22-2024 Hematocrit (Bld) [Volume fraction] 40.7 % 37-47 [facility] Hemoglobin measurementOrdere d By: Safia Ruelas on 10-22-2024 Hemoglobin (Bld) [Mass/Vol] 13.1 g/dL 12.0-15.0 [facility] Immature granulocytes/100 WB C Auto (Bld)Ordered By: Safia Ruelas on 10-22-2024 Immature granulocytes/100 WBC (Bld) 1.400 % High 0.0-0.9 [facility] Comment on above: IG% - Immature Granu locytes (promyelocytes, myelocytes and metamyelocytes) > 1% indicates that a LEFT SHIFT is Present. MCV (mean corpuscular volume ) determinationOrdered By: Safia Ruelas on 10-22-2024 MCV (RBC) [Entitic vol] 91.9 fL 81-99 [facility] Mean corpuscular hemoglobin (MCH) determinationOrdered By: Safia Ruelas on 10-22-2024 MCH (RBC) [Entitic mass] 29.6 pg 27.0-32.0 [facility] Mean corpuscular hemoglobin concentration (MCHC) determinationOrdered By: Safia Ruelas on 10-22-2024 MCHC (RBC) [Mass/Vol] 32.2 g/dL 32-36 [facility] Mean platelet volume determi nationOrdered By: Safia Ruelas on 10-22-2024 Platelet mean volume (Bld) [Entitic vol] 11.2 fL 6.2-12.0 [facility] Monocyte percentageOrdered B y: Safia Ruelas on 10-22-2024 Monocytes/100 WBC (Bld) 7.7 % 0-10 [facility] Neutrophil percentageOrdered By: [facility] Ruelas on 10-22-2024 Neutrophils/100 WBC (Bld) 52.1 % 47-70 [facility] Nucleated red blood cell per centageOrdered By: Safia Ruelas on 10-22-2024 Nucleated RBC/100 WBC (Bld) [Ratio] 0 % 0-5 [facility] Platelet countOrdered By: Balbir jean mariejosé antonio Ruelas on 10-22-2024 Platelets (Bld) [#/Vol] 334 10*3/uL 150-450 [facility] Potassium measurement (mass/ volume)Ordered By: Safia Ruelas on 10-22-2024 Potassium (Unsp spec) [Mass/Vol] 3.7 mmol/L 3.3-5.1 [facility] RBC Auto (Bld) [#/Vol]Ordere d By: Safia Ruelas on 10-22-2024 RBC (Bld) [#/Vol] 4.43 10*6/uL 4.2-5.4 [facility] Serum creatinine measurement (mass/volume)Ordered By: Safia Ruelas on 10-22-2024 Creatinine [Mass/Vol] 0.96 mg/dL 0.70-1.20 [facility] Serum glucose measurement (m ass/volume)Ordered By: Safia Ruelas on 10-22-2024 Glucose [Mass/Vol] 106 mg/dL High 70-99 [facility] Serum or plasma calcium dayna urement (mass/volume)Ordered By: Safia Ruelas on 10-22-2024 Calcium [Mass/Vol] 9.4 mg/dL 7.6-11.0 [facility] Serum or plasma urea nitroge n measurement (mass/volume)Ordered By: Safia Ruelas on 10-22-2024 Urea nitrogen [Mass/Vol] 28 mg/dL High 4-19 [facility] Sodium levelOrdered By: Leonides Ruelas on 10-22-2024 Sodium [Moles/Vol] 138 mmol/L 133-145 [facility] TSH DL <= 0.005 mIU/L QnOrde red By: Safia Ruelas on 10-22-2024 TSH Qn 4.630 uIU/mL High 0.300-4.200 [facility] White blood cell (WBC) count Ordered By: Safia Ruelas on 10-22-2024 WBC (Bld) [#/Vol] 8.8 10*3/uL 4.4-11.0 [facility] Absolute lymphocyte countOrd ered By: Safia Ruelas on 10-15-2024 Lymphocytes Auto (Unsp spec) [#/Vol] 3.04 10*3/uL 0.83-4.51 [facility] Absolute neutrophil countOrd ered By: Safia Ruelas on 10-15-2024 Neutrophils (Bld) [#/Vol] 4.3 10*3/uL 2.0-7.7 [facility] Anion gap in Serum or Plasma Ordered By: Safia Ruelas on 10-15-2024 Anion gap [Moles/Vol] 12 mmol/L 5-15 [facility] Automated lymphocyte count a s percentage of total leukocytesOrdered By: Safia Ruelas on 10-15-2024 Lymphocytes/100 WBC Auto (Unsp spec) 36.7 % 19-41 [facility] BUN/creatinine ratioOrdered By: Safia Ruelas on 10-15-2024 Urea nitrogen/Creatinine [Mass ratio] 36.5 mg/mg High 10-20 [facility] Basophil percentageOrdered B y: Safia Ruelas on 10-15-2024 Basophils/100 WBC (Bld) 0.7 % 0-1 [facility] Carbon dioxide, total [Moles /volume] in Central venous bloodOrdered By: Safia Ruelas on 10-15-2024 CO2 [Moles/Vol] 25.2 mmol/L 21.0-32.0 [facility] Chloride assayOrdered By: Balbir jean mariejosé antonio Ruelas on 10-15-2024 Chloride [Moles/Vol] 100 mmol/L 98-108 [facility] Eosinophil percentageOrdered By: Leonidesbaton rougeskye Ruelas on 10-15-2024 Eosinophils/100 WBC (Bld) 2.4 % 0-5 [facility] Erythrocyte distribution wid th ratioOrdered By: jean mariebaton rougeskye Ruelas on 10-15-2024 Erythrocyte distribution width (RBC) [Ratio] 13.5 % 11.6-14.6 [facility] Erythrocyte distribution wid th standard deviationOrdered By: [facility] Centers[facility] Ruelas on 10-15-2024 Erythrocyte distribution width (RBC) [Ratio] 45.2 fl High 35.1-43.9 [facility] Glomerular filtration rate ( GFR) estimation/1.73 sq m using serum, plasma, or whole bOrdered By: Safia Ruelas on 10-15-2024 GFR/1.73 sq M.predicted among non-blacks MDRD (S/P/Bld) [Vol rate/Area] 71 mL/min/{1.73_m2} >60 [facility] Comment on above: mL/min/1.73m2 CKD-EP I Creatinine Equation (2020) Hematocrit Auto (Bld) [Volum e fraction]Ordered By: Safia Ruelas on 10-15-2024 Hematocrit (Bld) [Volume fraction] 40.3 % 37-47 [facility] Hemoglobin measurementOrdere d By: Safia Ruelas on 10-15-2024 Hemoglobin (Bld) [Mass/Vol] 13.3 g/dL 12.0-15.0 [facility] Immature granulocytes/100 WB C Auto (Bld)Ordered By: Safia Ruelas on 10-15-2024 Immature granulocytes/100 WBC (Bld) 0.400 % 0.0-0.9 [facility] Comment on above: IG% - Immature Granu locytes (promyelocytes, myelocytes and metamyelocytes) > 1% indicates that a LEFT SHIFT is Present. MCV (mean corpuscular volume ) determinationOrdered By: Safia Ruelas on 10-15-2024 MCV (RBC) [Entitic vol] 91.0 fL 81-99 [facility] Mean corpuscular hemoglobin (MCH) determinationOrdered By: Safia Ruelas on 10-15-2024 MCH (RBC) [Entitic mass] 30.0 pg 27.0-32.0 [facility] Mean corpuscular hemoglobin concentration (MCHC) determinationOrdered By: Safia Ruelas on 10-15-2024 MCHC (RBC) [Mass/Vol] 33.0 g/dL 32-36 [facility] Mean platelet volume determi nationOrdered By: Safia Ruelas on 10-15-2024 Platelet mean volume (Bld) [Entitic vol] 11.9 fL 6.2-12.0 [facility] Monocyte percentageOrdered B y: Safia Ruelas on 10-15-2024 Monocytes/100 WBC (Bld) 8.2 % 0-10 [facility] Neutrophil percentageOrdered By: Safia Ruelas on 10-15-2024 Neutrophils/100 WBC (Bld) 51.6 % 47-70 [facility] Nucleated red blood cell per centageOrdered By: Safia Ruelas on 10-15-2024 Nucleated RBC/100 WBC (Bld) [Ratio] 0 % 0-5 [facility] Platelet countOrdered By: Balbir Ruelas on 10-15-2024 Platelets (Bld) [#/Vol] 221 10*3/uL 150-450 [facility] Potassium measurement (mass/ volume)Ordered By: Safia Ruelas on 10-15-2024 Potassium (Unsp spec) [Mass/Vol] 3.8 mmol/L 3.3-5.1 [facility] RBC Auto (Bld) [#/Vol]Ordere d By: Safia Ruelas on 10-15-2024 RBC (Bld) [#/Vol] 4.43 10*6/uL 4.2-5.4 [facility] Serum creatinine measurement (mass/volume)Ordered By: Safia Ruelas on 10-15-2024 Creatinine [Mass/Vol] 0.83 mg/dL 0.70-1.20 [facility] Serum glucose measurement (m ass/volume)Ordered By: Safia Ruelas on 10-15-2024 Glucose [Mass/Vol] 68 mg/dL Low 70-99 [facility] Serum or plasma calcium dayna urement (mass/volume)Ordered By: Safia Ruelas on 10-15-2024 Calcium [Mass/Vol] 9.3 mg/dL 7.6-11.0 [facility] Serum or plasma urea nitroge n measurement (mass/volume)Ordered By: Safia Ruelas on 10-15-2024 Urea nitrogen [Mass/Vol] 30 mg/dL High 4-19 [facility] Sodium levelOrdered By: Leonides Ruelas on 10-15-2024 Sodium [Moles/Vol] 138 mmol/L 133-145 [facility] White blood cell (WBC) count Ordered By: Safia Ruelas on 10-15-2024 WBC (Bld) [#/Vol] 8.3 10*3/uL 4.4-11.0 [facility] Absolute lymphocyte countOrd ered By: Safia Ruelas on 10-08-2024 Lymphocytes Auto (Unsp spec) [#/Vol] 2.52 10*3/uL 0.83-4.51 [facility] Absolute neutrophil countOrd ered By: Safia Ruelas on 10-08-2024 Neutrophils (Bld) [#/Vol] 4.9 10*3/uL 2.0-7.7 [facility] Anion gap in Serum or Plasma Ordered By: Safia Ruelas on 10-08-2024 Anion gap [Moles/Vol] 14 mmol/L 5-15 [facility] Automated lymphocyte count a s percentage of total leukocytesOrdered By: Safia Ruelas on 10-08-2024 Lymphocytes/100 WBC Auto (Unsp spec) 29.4 % 19-41 [facility] BUN/creatinine ratioOrdered By: Safia Ruelas on 10-08-2024 Urea nitrogen/Creatinine [Mass ratio] 34.1 mg/mg High 10-20 [facility] Basophil percentageOrdered B y: Safia Ruelas on 10-08-2024 Basophils/100 WBC (Bld) 0.7 % 0-1 [facility] Carbon dioxide, total [Moles /volume] in Central venous bloodOrdered By: Safia Ruelas on 10-08-2024 CO2 [Moles/Vol] 24.0 mmol/L 21.0-32.0 [facility] Chloride assayOrdered By: Balbir Ruelas on 10-08-2024 Chloride [Moles/Vol] 100 mmol/L 98-108 [facility] Eosinophil percentageOrdered By: Safia Ruelas on 10-08-2024 Eosinophils/100 WBC (Bld) 2.6 % 0-5 [facility] Erythrocyte distribution wid th ratioOrdered By: Safia Ruelas on 10-08-2024 Erythrocyte distribution width (RBC) [Ratio] 13.2 % 11.6-14.6 [facility] Erythrocyte distribution wid th standard deviationOrdered By: Safia Ruelas on 10-08-2024 Erythrocyte distribution width (RBC) [Ratio] 45.3 fl High 35.1-43.9 [facility] Glomerular filtration rate ( GFR) estimation/1.73 sq m using serum, plasma, or whole bOrdered By: Safia Ruelas on 10-08-2024 GFR/1.73 sq M.predicted among non-blacks MDRD (S/P/Bld) [Vol rate/Area] 65 mL/min/{1.73_m2} >60 [facility] Comment on above: mL/min/1.73m2 CKD-EP I Creatinine Equation (2020) Hematocrit Auto (Bld) [Volum e fraction]Ordered By: Safia Ruelas on 10-08-2024 Hematocrit (Bld) [Volume fraction] 41.7 % 37-47 [facility] Hemoglobin measurementOrdere d By: Safia Ruelas on 10-08-2024 Hemoglobin (Bld) [Mass/Vol] 13.3 g/dL 12.0-15.0 [facility] Immature granulocytes/100 WB C Auto (Bld)Ordered By: jean mariebaton rougeskye Ruelas on 10-08-2024 Immature granulocytes/100 WBC (Bld) 0.400 % 0.0-0.9 [facility] Comment on above: IG% - Immature Granu locytes (promyelocytes, myelocytes and metamyelocytes) > 1% indicates that a LEFT SHIFT is Present. MCV (mean corpuscular volume ) determinationOrdered By: Safia Ruelas on 10-08-2024 MCV (RBC) [Entitic vol] 92.7 fL 81-99 [facility] Mean corpuscular hemoglobin (MCH) determinationOrdered By: Safia Ruelas on 10-08-2024 MCH (RBC) [Entitic mass] 29.6 pg 27.0-32.0 [facility] Mean corpuscular hemoglobin concentration (MCHC) determinationOrdered By: Safia Ruelas on 10-08-2024 MCHC (RBC) [Mass/Vol] 31.9 g/dL Low 32-36 [facility] Mean platelet volume determi nationOrdered By: Safia Ruelas on 10-08-2024 Platelet mean volume (Bld) [Entitic vol] 11.0 fL 6.2-12.0 [facility] Monocyte percentageOrdered B y: Safia Ruelas on 10-08-2024 Monocytes/100 WBC (Bld) 9.2 % 0-10 [facility] Neutrophil percentageOrdered By: Safia Ruelas on 10-08-2024 Neutrophils/100 WBC (Bld) 57.7 % 47-70 [facility] Nucleated red blood cell per centageOrdered By: Safia Ruelas on 10-08-2024 Nucleated RBC/100 WBC (Bld) [Ratio] 0 % 0-5 [facility] Platelet countOrdered By: Balbir Ruelas on 10-08-2024 Platelets (Bld) [#/Vol] 323 10*3/uL 150-450 [facility] Potassium measurement (mass/ volume)Ordered By: Safia Ruelas on 10-08-2024 Potassium (Unsp spec) [Mass/Vol] 4.1 mmol/L 3.3-5.1 [facility] RBC Auto (Bld) [#/Vol]Ordere d By: Safia Ruelas on 10-08-2024 RBC (Bld) [#/Vol] 4.50 10*6/uL 4.2-5.4 [facility] Serum creatinine measurement (mass/volume)Ordered By: Safia Ruelas on 10-08-2024 Creatinine [Mass/Vol] 0.90 mg/dL 0.70-1.20 [facility] Serum glucose measurement (m ass/volume)Ordered By: Safia Ruelas on 10-08-2024 Glucose [Mass/Vol] 82 mg/dL 70-99 [facility] Serum or plasma calcium dayna urement (mass/volume)Ordered By: Safia Ruelas on 10-08-2024 Calcium [Mass/Vol] 9.6 mg/dL 7.6-11.0 [facility] Serum or plasma urea nitroge n measurement (mass/volume)Ordered By: Safia Ruelas on 10-08-2024 Urea nitrogen [Mass/Vol] 31 mg/dL High 4-19 [facility] Sodium levelOrdered By: Leonides Ruelas on 10-08-2024 Sodium [Moles/Vol] 138 mmol/L 133-145 [facility] White blood cell (WBC) count Ordered By: Safia Ruelas on 10-08-2024 WBC (Bld) [#/Vol] 8.6 10*3/uL 4.4-11.0 [facility] 12 Lead EKG performed by [facility] on 10-02-2024 12 Lead EKG performed by [facility] [address] [place] [address] 12 Lead EKG performed by [facility] 10/02/24920 MR#: [id number] Acct: [id number] Name: LINDSAY ACUNA Rep #: [id number] : 1945 78 From: Mj Benavides MD Attending Dr: Dr. Mj Benavides MD Status: DEP A MB Ordering Dr: Mj Benavides MD Date: 10/02/24 Location: [facility] Sex: F C Admitted: BMS/12 Lead EKG performed by [facility] ECG Report Interpretation ---Atrial fibrillation -irregular conduction -Old anterior infarct. ABNORMAL Electronically signed on 10/02/2024 at 16:06 by Mj Benavides [employer] Version 8610 10/02/24 1608 Date Mj Benavides MD CC: Dr. Kameron Caruso MD Date Dictated: 10/02/24920 Date Transcribed: 10/02/24920 Switch Cleaner: CO Signed Normal [facility] Cardiology Visit Reporton Cardiology Visit Report [facility] [address] [place] [address] OFFICE VISIT Date of Service: 10/02/24 MR#: [id number] Acct: [id number] Name: LINDSAY ACUNA Rep #: [id number] : 1945 Provider: Dr. Mj Benavides MD Age/Sex: 78/F Location: [facility] Status: Signed HPI HPI History of Present [...] d/t W/C bound Intake Visit Reasons: AFIB ([facility]) Inclusion Teacher Required: No Accompanied by: Significant Other Is [...] normal, nasal (more content not included)... Normal [facility] Absolute lymphocyte countOrd ered By: Safia Ruelas on 10-01-2024 Lymphocytes Auto (Unsp spec) [#/Vol] 2.45 10*3/uL 0.83-4.51 [facility] Absolute neutrophil countOrd ered By: Safia Griderbonimelanie on 10-01-2024 Neutrophils (Bld) [#/Vol] 6.5 10*3/uL 2.0-7.7 [facility] Anion gap in Serum or Plasma Ordered By: Safia Ruelas on 10-01-2024 Anion gap [Moles/Vol] 12 mmol/L 5- [facility] Automated lymphocyte count a s percentage of total leukocytesOrdered By: Safia Ruelas on 10-01-2024 Lymphocytes/100 WBC Auto (Unsp spec) 23.1 % 19- [facility] BUN/creatinine ratioOrdered By: Safia Ruelas on 10-01-2024 Urea nitrogen/Creatinine [Mass ratio] 24.9 mg/mg High 10- [facility] Basophil percentageOrdered B y: Safia Ruelas on 10-01-2024 Basophils/100 WBC (Bld) 0.5 % 0-1 [facility] Carbon dioxide, total [Moles /volume] in Central venous bloodOrdered By: Safia Ruelas on 10-01-2024 CO2 [Moles/Vol] 24.4 mmol/L 21.0-32.0 [facility] Chloride assayOrdered By: Balbir Ruelas on 10-01-2024 Chloride [Moles/Vol] 99 mmol/L 98-108 [facility] Eosinophil percentageOrdered By: sherry Ruelsa on 10-01-2024 Eosinophils/100 WBC (Bld) 2.0 % 0-5 [facility] Erythrocyte distribution wid th ratioOrdered By: Safia Ruelas on 10-01-2024 Erythrocyte distribution width (RBC) [Ratio] 13.5 % 11.6-14.6 [facility] Erythrocyte distribution wid th standard deviationOrdered By: Safia Ruelas on 10-01-2024 Erythrocyte distribution width (RBC) [Ratio] 46.2 fl High 35.1-43.9 [facility] Glomerular filtration rate ( GFR) estimation/1.73 sq m using serum, plasma, or whole bOrdered By: Safia Ruelas on 10-01-2024 GFR/1.73 sq M.predicted among non-blacks MDRD (S/P/Bld) [Vol rate/Area] 63 mL/min/{1.73_m2} >60 [facility] Comment on above: mL/min/1.73m2 CKD-EP I Creatinine Equation (2020) Hematocrit Auto (Bld) [Volum e fraction]Ordered By: Safia Ruelas on 10-01-2024 Hematocrit (Bld) [Volume fraction] 38.7 % 37-47 [facility] Hemoglobin measurementOrdere d By: Safia Ruelas on 10-01-2024 Hemoglobin (Bld) [Mass/Vol] 12.5 g/dL 12.0-15.0 [facility] Immature granulocytes/100 WB C Auto (Bld)Ordered By: Safia Ruelas on 10-01-2024 Immature granulocytes/100 WBC (Bld) 0.800 % 0.0-0.9 [facility] Comment on above: IG% - Immature Granu locytes (promyelocytes, myelocytes and metamyelocytes) > 1% indicates that a LEFT SHIFT is Present. MCV (mean corpuscular volume ) determinationOrdered By: Safia Ruelas on 10-01-2024 MCV (RBC) [Entitic vol] 93.3 fL 81-99 [facility] Mean corpuscular hemoglobin (MCH) determinationOrdered By: Safia Ruelas on 10-01-2024 MCH (RBC) [Entitic mass] 30.1 pg 27.0-32.0 [facility] Mean corpuscular hemoglobin concentration (MCHC) determinationOrdered By: Leonidesbaton rougeskye Ruelas on 10-01-2024 MCHC (RBC) [Mass/Vol] 32.3 g/dL 32-36 [facility] Mean platelet volume determi nationOrdered By: Safia Ruelas on 10-01-2024 Platelet mean volume (Bld) [Entitic vol] 11.7 fL 6.2-12.0 [facility] Monocyte percentageOrdered B y: Safia Ruelas on 10-01-2024 Monocytes/100 WBC (Bld) 12.7 % High 0-10 [facility] Neutrophil percentageOrdered By: Safia Cheoquyen on 10-01-2024 Neutrophils/100 WBC (Bld) 60.9 % 47-70 [facility] Nucleated red blood cell per centageOrdered By: Safia Cheoquyen on 10-01-2024 Nucleated RBC/100 WBC (Bld) [Ratio] 0 % 0-5 [facility] Platelet countOrdered By: Balbir sherry Cheoquyen on 10-01-2024 Platelets (Bld) [#/Vol] 371 10*3/uL 150-450 [facility] Potassium measurement (mass/ volume)Ordered By: Safia Griderbonimelanie on 10-01-2024 Potassium (Unsp spec) [Mass/Vol] 4.2 mmol/L 3.3-5.1 [facility] RBC Auto (Bld) [#/Vol]Ordere d By: Safia Ruelas on 10-01-2024 RBC (Bld) [#/Vol] 4.15 10*6/uL Low 4.2-5.4 [facility] Serum creatinine measurement (mass/volume)Ordered By: Balbirsherry Griderbonimelanie on 10-01-2024 Creatinine [Mass/Vol] 0.93 mg/dL 0.70-1.20 [facility] Serum glucose measurement (m ass/volume)Ordered By: Balbirjean mariedesireeskye Griderbonimelanie on 10-01-2024 Glucose [Mass/Vol] 93 mg/dL 70-99 [facility] Serum or plasma calcium dayna urement (mass/volume)Ordered By: Balbirjean mariejosé antonio Cheobonimelanie on 10-01-2024 Calcium [Mass/Vol] 9.5 mg/dL 7.6-11.0 [facility] Serum or plasma urea nitroge n measurement (mass/volume)Ordered By: Safia Griderbonimelanie on 10-01-2024 Urea nitrogen [Mass/Vol] 23 mg/dL High 4-19 [facility] Sodium levelOrdered By: Leonides josé antonio Jessenia on 10-01-2024 Sodium [Moles/Vol] 135 mmol/L 133-145 [facility] White blood cell (WBC) count Ordered By: Leonidesdesireeskye Ruelas on 10-01-2024 WBC (Bld) [#/Vol] 10.6 10*3/uL 4.4-11.0 [facility] Clostridium difficile detect ion by polymerase chain reactionOrdered By: Safia Ruelas on 09-29-2024 C. difficile DNA CHUCKY+probe Ql (Unsp spec) [facility] Absolute lymphocyte countOrd ered By: Safia Ruelas on 09-24-2024 Lymphocytes Auto (Unsp spec) [#/Vol] 2.72 10*3/uL 0.83-4.51 [facility] Absolute neutrophil countOrd ered By: Safia Griderbonimelanie on 09-24-2024 Neutrophils (Bld) [#/Vol] 6.3 10*3/uL 2.0-7.7 [facility] Anion gap in Serum or Plasma Ordered By: Safia Ruelas on 09-24-2024 Anion gap [Moles/Vol] 12 mmol/L 5-15 [facility] Automated lymphocyte count a s percentage of total leukocytesOrdered By: Safia Ruelas on 09-24-2024 Lymphocytes/100 WBC Auto (Unsp spec) 26.3 % 19-41 [facility] BUN/creatinine ratioOrdered By: Safia Ruelas on 09-24-2024 Urea nitrogen/Creatinine [Mass ratio] 36.4 mg/mg High 10-20 [facility] Basophil percentageOrdered B y: Safia Ruelas on 09-24-2024 Basophils/100 WBC (Bld) 0.7 % 0-1 [facility] Carbon dioxide, total [Moles /volume] in Central venous bloodOrdered By: Safia Ruelas on 09-24-2024 CO2 [Moles/Vol] 24.1 mmol/L 21.0-32.0 [facility] Chloride assayOrdered By: Balbir Ruelas on 09-24-2024 Chloride [Moles/Vol] 100 mmol/L 98-108 [facility] Eosinophil percentageOrdered By: Safia Ruelas on 09-24-2024 Eosinophils/100 WBC (Bld) 2.7 % 0-5 [facility] Erythrocyte distribution wid th ratioOrdered By: Safia Ruelas on 09-24-2024 Erythrocyte distribution width (RBC) [Ratio] 13.6 % 11.6-14.6 [facility] Erythrocyte distribution wid th standard deviationOrdered By: Safia Ruelas on 09-24-2024 Erythrocyte distribution width (RBC) [Ratio] 47.1 fl High 35.1-43.9 [facility] Glomerular filtration rate ( GFR) estimation/1.73 sq m using serum, plasma, or whole bOrdered By: Safia Ruelas on 09-24-2024 GFR/1.73 sq M.predicted among non-blacks MDRD (S/P/Bld) [Vol rate/Area] 62 mL/min/{1.73_m2} >60 [facility] Comment on above: mL/min/1.73m2 CKD-EP I Creatinine Equation (2020) Hematocrit Auto (Bld) [Volum e fraction]Ordered By: Safia Ruelas on 09-24-2024 Hematocrit (Bld) [Volume fraction] 41.2 % 37-47 [facility] Hemoglobin measurementOrdere d By: Safia Ruelas on 09-24-2024 Hemoglobin (Bld) [Mass/Vol] 13.0 g/dL 12.0-15.0 [facility] Immature granulocytes/100 WB C Auto (Bld)Ordered By: Safia Ruelas on 09-24-2024 Immature granulocytes/100 WBC (Bld) 1.000 % High 0.0-0.9 [facility] Comment on above: IG% - Immature Granu locytes (promyelocytes, myelocytes and metamyelocytes) > 1% indicates that a LEFT SHIFT is Present. MCV (mean corpuscular volume ) determinationOrdered By: Safia Ruelas on 09-24-2024 MCV (RBC) [Entitic vol] 94.3 fL 81-99 [facility] Mean corpuscular hemoglobin (MCH) determinationOrdered By: Safia Ruelas on 09-24-2024 MCH (RBC) [Entitic mass] 29.7 pg 27.0-32.0 [facility] Mean corpuscular hemoglobin concentration (MCHC) determinationOrdered By: Safia Ruelas on 09-24-2024 MCHC (RBC) [Mass/Vol] 31.6 g/dL Low 32-36 [facility] Mean platelet volume determi nationOrdered By: Safia Ruelas on 09-24-2024 Platelet mean volume (Bld) [Entitic vol] 11.3 fL 6.2-12.0 [facility] Monocyte percentageOrdered B y: Safia Ruelas on 09-24-2024 Monocytes/100 WBC (Bld) 8.9 % 0-10 [facility] Neutrophil percentageOrdered By: Leonidesbaton rougeskye Ruelas on 09-24-2024 Neutrophils/100 WBC (Bld) 60.4 % 47-70 [facility] Nucleated red blood cell per centageOrdered By: Safia Ruelas on 09-24-2024 Nucleated RBC/100 WBC (Bld) [Ratio] 0 % 0-5 [facility] Platelet countOrdered By: Balbir Ruelas on 09-24-2024 Platelets (Bld) [#/Vol] 441 10*3/uL 150-450 [facility] Potassium measurement (mass/ volume)Ordered By: Safia Ruelas on 09-24-2024 Potassium (Unsp spec) [Mass/Vol] 4.3 mmol/L 3.3-5.1 [facility] RBC Auto (Bld) [#/Vol]Ordere d By: Safia Ruelas on 09-24-2024 RBC (Bld) [#/Vol] 4.37 10*6/uL 4.2-5.4 [facility] Serum creatinine measurement (mass/volume)Ordered By: Safia Ruelas on 09-24-2024 Creatinine [Mass/Vol] 0.93 mg/dL 0.70-1.20 [facility] Serum glucose measurement (m ass/volume)Ordered By: Safia Ruelas on 09-24-2024 Glucose [Mass/Vol] 48 mg/dL Low 70-99 [facility] Serum or plasma calcium dayna urement (mass/volume)Ordered By: Balbirjean mariejosé antonio Cheobonimelanie on 09-24-2024 Calcium [Mass/Vol] 9.5 mg/dL 7.6-11.0 [facility] Serum or plasma urea nitroge n measurement (mass/volume)Ordered By: Safia Ruelas on 09-24-2024 Urea nitrogen [Mass/Vol] 34 mg/dL High 4-19 [facility] Sodium levelOrdered By: Leonides chou Cheobonimelanie on 09-24-2024 Sodium [Moles/Vol] 136 mmol/L 133-145 [facility] White blood cell (WBC) count Ordered By: Safia Ruelas on 09-24-2024 WBC (Bld) [#/Vol] 10.4 10*3/uL 4.4-11.0 [facility] Absolute lymphocyte countOrd ered By: Safia Ruelas on 09-17-2024 Lymphocytes Auto (Unsp spec) [#/Vol] 2.52 10*3/uL 0.83-4.51 [facility] Absolute neutrophil countOrd ered By: Safia Ruelas on 09-17-2024 Neutrophils (Bld) [#/Vol] 5.8 10*3/uL 2.0-7.7 [facility] Anion gap in Serum or Plasma Ordered By: Safia Ruelas on 09-17-2024 Anion gap [Moles/Vol] 12 mmol/L 5-15 [facility] Automated lymphocyte count a s percentage of total leukocytesOrdered By: Safia Ruelas on 09-17-2024 Lymphocytes/100 WBC Auto (Unsp spec) 26.3 % 19-41 [facility] BUN/creatinine ratioOrdered By: Balbirsherry Ruelas on 09-17-2024 Urea nitrogen/Creatinine [Mass ratio] 45.9 mg/mg High 10-20 [facility] Basophil percentageOrdered B y: Safia Ruelas on 09-17-2024 Basophils/100 WBC (Bld) 0.6 % 0-1 [facility] Calculated very low density lipoprotein (VLDL) cholesterol measurementOrdered By: Safia Ruelas on 09-17-2024 Calculated very low density lipoprotein (VLDL) cholesterol measurement 22 mg/dL 5-40 [facility] Carbon dioxide, total [Moles /volume] in Central venous bloodOrdered By: Safia Ruelas on 09-17-2024 CO2 [Moles/Vol] 24.5 mmol/L 21.0-32.0 [facility] Chloride assayOrdered By: Balbir Ruelas on 09-17-2024 Chloride [Moles/Vol] 98 mmol/L 98-108 [facility] Eosinophil percentageOrdered By: Safia Ruelas on 09-17-2024 Eosinophils/100 WBC (Bld) 3.2 % 0-5 [facility] Erythrocyte distribution wid th ratioOrdered By: jean mariebaton rougeskye Ruelas on 09-17-2024 Erythrocyte distribution width (RBC) [Ratio] 13.4 % 11.6-14.6 [facility] Erythrocyte distribution wid th standard deviationOrdered By: Safia Ruelas on 09-17-2024 Erythrocyte distribution width (RBC) [Ratio] 45.4 fl High 35.1-43.9 [facility] Glomerular filtration rate ( GFR) estimation/1.73 sq m using serum, plasma, or whole bOrdered By: Safia Ruelas on 09-17-2024 GFR/1.73 sq M.predicted among non-blacks MDRD (S/P/Bld) [Vol rate/Area] 69 mL/min/{1.73_m2} >60 [facility] Comment on above: mL/min/1.73m2 CKD-EP I Creatinine Equation (2020) Hematocrit Auto (Bld) [Volum e fraction]Ordered By: Safia Ruelas on 09-17-2024 Hematocrit (Bld) [Volume fraction] 38.8 % 37-47 [facility] Hemoglobin measurementOrdere d By: Safia Ruelas on 09-17-2024 Hemoglobin (Bld) [Mass/Vol] 12.6 g/dL 12.0-15.0 [facility] Immature granulocytes/100 WB C Auto (Bld)Ordered By: Safia Ruelas on 09-17-2024 Immature granulocytes/100 WBC (Bld) 0.700 % 0.0-0.9 [facility] Comment on above: IG% - Immature Granu locytes (promyelocytes, myelocytes and metamyelocytes) > 1% indicates that a LEFT SHIFT is Present. LDL calc ser/plasOrdered By: Safia Ruelas on 09-17-2024 Cholesterol in LDL [Mass/Vol] 120 mg/dL [facility] Comment on above: Syypzctaap=818-623 m g/dL & Higher Ajov=696 mg/dL or greater MCV (mean corpuscular volume ) determinationOrdered By: Safia Ruelas on 09-17-2024 MCV (RBC) [Entitic vol] 91.7 fL 81-99 [facility] Mean corpuscular hemoglobin (MCH) determinationOrdered By: Leonidesbaton rougeskye Ruelas on 09-17-2024 MCH (RBC) [Entitic mass] 29.8 pg 27.0-32.0 [facility] Mean corpuscular hemoglobin concentration (MCHC) determinationOrdered By: Safia Ruelas on 09-17-2024 MCHC (RBC) [Mass/Vol] 32.5 g/dL 32-36 [facility] Mean platelet volume determi nationOrdered By: Safia Ruelas on 09-17-2024 Platelet mean volume (Bld) [Entitic vol] 11.4 fL 6.2-12.0 [facility] Monocyte percentageOrdered B y: Safia Ruelas on 09-17-2024 Monocytes/100 WBC (Bld) 8.5 % 0-10 [facility] Neutrophil percentageOrdered By: jean mariebaton rougeskye Ruelas on 09-17-2024 Neutrophils/100 WBC (Bld) 60.7 % 47-70 [facility] Nucleated red blood cell per centageOrdered By: Safia Ruelas on 09-17-2024 Nucleated RBC/100 WBC (Bld) [Ratio] 0 % 0-5 [facility] Platelet countOrdered By: Balbir Ruelas on 09-17-2024 Platelets (Bld) [#/Vol] 311 10*3/uL 150-450 [facility] Potassium measurement (mass/ volume)Ordered By: Safia Ruelas on 09-17-2024 Potassium (Unsp spec) [Mass/Vol] 4.1 mmol/L 3.3-5.1 [facility] RBC Auto (Bld) [#/Vol]Ordere d By: Safia Ruelas on 09-17-2024 RBC (Bld) [#/Vol] 4.23 10*6/uL 4.2-5.4 [facility] Screening total cholesterol/ high density lipoprotein (HDL) cholesterol ratioOrdered By: Safia Ruelas on 09-17-2024 Cholesterol.total/Alta sterol in HDL [Mass ratio] 5.38 {ratio} [facility] Serum creatinine measurement (mass/volume)Ordered By: Safia Ruelas on 09-17-2024 Creatinine [Mass/Vol] 0.86 mg/dL 0.70-1.20 [facility] Serum glucose measurement (m ass/volume)Ordered By: Safia Ruelas on 09-17-2024 Glucose [Mass/Vol] 216 mg/dL High 70-99 [facility] Serum or plasma calcium dayna urement (mass/volume)Ordered By: Safia Ruelas on 09-17-2024 Calcium [Mass/Vol] 9.4 mg/dL 7.6-11.0 [facility] Serum or plasma cholesterol in HDL measurement (mass/volume)Ordered By: Safia Ruelas on 09-17-2024 Cholesterol in HDL [Mass/Vol] 33 mg/dL Low >40 [facility] Comment on above: National Cholesterol Education Program (NCEP) guidelines:<40 mg/dL: Low HDL-cholesterol (major risk factor for CHD)>= 60 mg/dL: High HDL-cholesterol (negative risk factor for CHD)HDL-cholesterol is affected by a number of factors, e.g. smoking, exercise, hormones, sex and age. Serum or plasma cholesterol measurement (mass/volume)Ordered By: Safia Ruelas on 09-17-2024 Cholesterol [Mass/Vol] 175 mg/dL <201 [facility] Comment on above: Cholesterol level, D esirable <200 mg/dLBorderline high cholesterol 200-239 mg/dLHigh cholesterol >=240 mg/dLRecommendations of the NCEP Adult Treatment Panel for the following risk-cutoff thresholds for the [place] population. Serum or plasma urea nitroge n measurement (mass/volume)Ordered By: Safia Ruelas on 09-17-2024 Urea nitrogen [Mass/Vol] 39 mg/dL High 4-19 [facility] Sodium levelOrdered By: Leonides jiméneztadmelanie Ruelas on 09-17-2024 Sodium [Moles/Vol] 134 mmol/L 133-145 [facility] TSH DL <= 0.005 mIU/L QnOrde red By: Safia Ruelas on 09-17-2024 TSH Qn 3.500 uIU/mL 0.300-4.200 [facility] Triglycerides measurementOrd ered By: Safia Ruelas on 09-17-2024 Triglyceride [Mass/Vol] 111 mg/dL <199 [facility] Comment on above: The drugs N-Acetylcy steine and Metamizole may falsely depress this assay. Normal range: <150 mg/dLBorderline High: 150-199 mg/dLHigh: 200-499 mg/dLVery High: >500 mg/dL White blood cell (WBC) count Ordered By: Safia Ruelas on 09-17-2024 WBC (Bld) [#/Vol] 9.6 10*3/uL 4.4-11.0 [facility] Absolute lymphocyte countOrd ered By: Safia Ruelas on 09-10-2024 Lymphocytes Auto (Unsp spec) [#/Vol] 2.11 10*3/uL 0.83-4.51 [facility] Absolute neutrophil countOrd ered By: Safia Ruelas on 09-10-2024 Neutrophils (Bld) [#/Vol] 8.1 10*3/uL High 2.0-7.7 [facility] Anion gap in Serum or Plasma Ordered By: Safia Ruelas on 09-10-2024 Anion gap [Moles/Vol] 13 mmol/L 5-15 [facility] Automated lymphocyte count a s percentage of total leukocytesOrdered By: Safia Ruelas on 09-10-2024 Lymphocytes/100 WBC Auto (Unsp spec) 17.9 % Low 19-41 [facility] BUN/creatinine ratioOrdered By: Safia Ruelas on 09-10-2024 Urea nitrogen/Creatinine [Mass ratio] 29.1 mg/mg High 10-20 [facility] Basophil percentageOrdered B y: Safia Ruelas on 09-10-2024 Basophils/100 WBC (Bld) 0.3 % 0-1 [facility] Bilirubin, totalOrdered By: Safia Cheoboniemlanie on 09-10-2024 Bilirubin [Mass/Vol] 0.55 mg/dL 0.00-1.30 [facility] Carbon dioxide, total [Moles /volume] in Central venous bloodOrdered By: Balbirjean mariedesireeskye Griderbonimelanie on 09-10-2024 CO2 [Moles/Vol] 23.6 mmol/L 21.0-32.0 [facility] Chloride assayOrdered By: Balbir sherry Cheobonimelanie on 09-10-2024 Chloride [Moles/Vol] 97 mmol/L Low 98-108 [facility] Eosinophil percentageOrdered By: Safia Ruelas on 09-10-2024 Eosinophils/100 WBC (Bld) 0.5 % 0-5 [facility] Erythrocyte distribution wid th ratioOrdered By: Balbirjean mariejosé antonio Westonmelanie on 09-10-2024 Erythrocyte distribution width (RBC) [Ratio] 13.4 % 11.6-14.6 [facility] Erythrocyte distribution wid th standard deviationOrdered By: Leonidesdesireeskye Griderbonimelanie on 09-10-2024 Erythrocyte distribution width (RBC) [Ratio] 45.2 fl High 35.1-43.9 [facility] Glomerular filtration rate ( GFR) estimation/1.73 sq m using serum, plasma, or whole bOrdered By: Balbirjean mariedesireeskye Griderbonimelanie on 09-10-2024 GFR/1.73 sq M.predicted among non-blacks MDRD (S/P/Bld) [Vol rate/Area] 59 mL/min/{1.73_m2} Low >60 [facility] Comment on above: mL/min/1.73m2 CKD-EP I Creatinine Equation (2020) Hematocrit Auto (Bld) [Volum e fraction]Ordered By: Safia Ruelas on 09-10-2024 Hematocrit (Bld) [Volume fraction] 41.8 % 37-47 [facility] Hemoglobin measurementOrdere d By: Safia Ruelas on 09-10-2024 Hemoglobin (Bld) [Mass/Vol] 13.4 g/dL 12.0-15.0 [facility] Immature granulocytes/100 WB C Auto (Bld)Ordered By: Safia Reulas on 09-10-2024 Immature granulocytes/100 WBC (Bld) 0.800 % 0.0-0.9 [facility] Comment on above: IG% - Immature Granu locytes (promyelocytes, myelocytes and metamyelocytes) > 1% indicates that a LEFT SHIFT is Present. Laboratory - Chemistry and C hemistry - challengeOrdered By: Safia Ruelas on 09-10-2024 AST [Catalytic activity/Vol] 21 U/L <32 [facility] MCV (mean corpuscular volume ) determinationOrdered By: Safia Ruelas on 09-10-2024 MCV (RBC) [Entitic vol] 92.5 fL 81-99 [facility] Mean corpuscular hemoglobin (MCH) determinationOrdered By: Safia Ruelas on 09-10-2024 MCH (RBC) [Entitic mass] 29.6 pg 27.0-32.0 [facility] Mean corpuscular hemoglobin concentration (MCHC) determinationOrdered By: Safia Ruelas on 09-10-2024 MCHC (RBC) [Mass/Vol] 32.1 g/dL 32-36 [facility] Mean platelet volume determi nationOrdered By: Safia Ruelas on 09-10-2024 Platelet mean volume (Bld) [Entitic vol] 12.6 fL High 6.2-12.0 [facility] Monocyte percentageOrdered B y: Safia Ruelas on 09-10-2024 Monocytes/100 WBC (Bld) 12.3 % High 0-10 [facility] Neutrophil percentageOrdered By: Safia Ruelas on 09-10-2024 Neutrophils/100 WBC (Bld) 68.2 % 47-70 [facility] No Panel InformationOrdered By: Safia Ruelas on 09-10-2024 21 U/L <32 [facility] Nucleated red blood cell per centageOrdered By: Safia Ruelas on 09-10-2024 Nucleated RBC/100 WBC (Bld) [Ratio] 0 % 0-5 [facility] Platelet countOrdered By: Balbir Ruelas on 09-10-2024 Platelets (Bld) [#/Vol] 190 10*3/uL 150-450 [facility] Potassium measurement (mass/ volume)Ordered By: Safia Ruelas on 09-10-2024 Potassium (Unsp spec) [Mass/Vol] 4.3 mmol/L 3.3-5.1 [facility] RBC Auto (Bld) [#/Vol]Ordere d By: Safia Ruelas on 09-10-2024 RBC (Bld) [#/Vol] 4.52 10*6/uL 4.2-5.4 [facility] Serum creatinine measurement (mass/volume)Ordered By: Safia Ruelas on 09-10-2024 Creatinine [Mass/Vol] 0.98 mg/dL 0.70-1.20 [facility] Serum globulin measurementOr dered By: Safia Ruelas on 09-10-2024 Globulin (S) [Mass/Vol] 3.3 g/dL 2.2-4.2 [facility] Serum glucose measurement (m ass/volume)Ordered By: Safia Ruelas on 09-10-2024 Glucose [Mass/Vol] 181 mg/dL High 70-99 [facility] Serum or plasma alanine raymundo otransferase (ALT) measurementOrdered By: Safia Ruelas 09-10-2024 ALT [Catalytic activity/Vol] 26 U/L <35 [facility] Serum or plasma albumin dayna urement (mass/volume)Ordered By: Safia Ruelas 09-10-2024 Albumin [Mass/Vol] 3.4 g/dL 3.4-4.8 [facility] Serum or plasma albumin/glob ulin mass ratioOrdered By: Balbirsherry Ruelas on 09-10-2024 Albumin/Globulin [Mass ratio] 1.0 {ratio} 0.9-2.4 [facility] Serum or plasma alkaline hannah sphatase measurementOrdered By: Balbirsherry Griderbonimelanie on 09-10-2024 ALP [Catalytic activity/Vol] 114 U/L High 35-104 [facility] Serum or plasma calcium dayna urement (mass/volume)Ordered By: Safia Ruelas on 09-10-2024 Calcium [Mass/Vol] 9.3 mg/dL 7.6-11.0 [facility] Serum or plasma urea nitroge n measurement (mass/volume)Ordered By: Balbirsherry Ruelas on 09-10-2024 Urea nitrogen [Mass/Vol] 29 mg/dL High 4-19 [facility] Sodium levelOrdered By: Leonides josé antonio Jessenia on 09-10-2024 Sodium [Moles/Vol] 133 mmol/L 133-145 [facility] Total proteinOrdered By: Augustomelanie ervin Jessenia on 09-10-2024 Protein [Mass/Vol] 6.7 g/dL 5.9-8.4 [facility] White blood cell (WBC) count Ordered By: Balbirjean mariedesireeskye Ruelas on 09-10-2024 WBC (Bld) [#/Vol] 11.8 10*3/uL High 4.4-11.0 [facility] LABORATORYOrdered By: Abigail Smith on 09-09-2024 Glucose [Mass/Vol] 212 mg/dL High 82 - 115 mg/dL [employer] Work Phone: Glucose [Mass/Vol] 226 mg/dL High 82 - 115 mg/dL [employer] Work Phone: LABORATORYOrdered By: Zoila Zarco on 09-08-2024 Glucose [Mass/Vol] 149 mg/dL High 82 - 115 mg/dL [employer] Work Phone: LABORATORYOrdered By: Rob Palmer on 09-08-2024 Blood Glucose Testing Reason Routine (09/08/24 6:16 PM) [employer] Work Phone: Blood Glucose Testing Reason Routine (09/08/24 11:58 AM) [employer] Work Phone: LABORATORYOrdered By: Rob Palmer on 09-07-2024 Blood Glucose Testing Reason Routine (09/07/24 4:46 PM) [employer] Work Phone: .Auto Diffon 09-03-2024 Basophil, Absolute 0.1 10 3/mcL Normal 0.0-0.3 [facility] Comment on above: Performed By: #### A DIFF, CBC, ANEU, GFR, BMP #### [address] [address] Basophils/100 WBC (Bld) 1.0 % Normal 0.0-2.5 [facility] Comment on above: Performed By: #### A DIFF, CBC, ANEU, GFR, BMP #### [address] [address] Eosinophil, Absolute 0.2 10 3/mcL Normal 0.0-0.7 [facility] Comment on above: Performed By: #### A DIFF, CBC, ANEU, GFR, BMP #### [address] [address] Eosinophils/100 WBC (Bld) 3.2 % Normal 0.0-6.0 [facility] Comment on above: Performed By: #### A DIFF, CBC, ANEU, GFR, BMP #### [address] [address] Lymphocyte, Absolute 2.0 10 3/mcL Normal 0.9-4.3 [facility] Comment on above: Performed By: #### A DIFF, CBC, ANEU, GFR, BMP #### [address] [address] Lymphocytes/100 WBC (Bld) 26.6 % Normal 20.0-40.0 [facility] Comment on above: Performed By: #### A DIFF, CBC, ANEU, GFR, BMP #### [address] [address] Monocyte, Absolute 0.7 10 3/mcL Normal 0.1-1.4 [facility] Comment on above: Performed By: #### A DIFF, CBC, ANEU, GFR, BMP #### [address] [address] Monocytes/100 WBC (Bld) 9.7 % Normal 2.0-13.0 [facility] Comment on above: Performed By: #### A DIFF, CBC, ANEU, GFR, BMP #### [address] [address] Neutrophils/100 WBC (Bld) 59.5 % Normal 50.0-75.0 [facility] Comment on above: Performed By: #### A DIFF, CBC, ANEU, GFR, BMP #### [address] [address] .GFRon 09-03-2024 Estimated Glomerular Filtration Rate 57 ml/min/1.73sqm Normal [facility] Comment on above: Result Comment: [...] A DIFF, CBC, ANEU, GFR, BMP #### [address] [address] .NEUABSon 09-03-2024 Neutrophil, Absolute 4.5 10 3/mcL Normal 2.3-8.1 [facility] Comment on above: Performed By: #### A DIFF, CBC, ANEU, GFR, BMP #### [address] [address] B12on 09-03-2024 Cobalamin (Vitamin B12) [Mass/Vol] 834 pg/mL Normal 211-911 [facility] Comment on above: Performed By: #### A DIFF, CBC, ANEU, GFR, BMP #### [place] [address] CBCon 09-03-2024 Erythrocyte distribution width (RBC) [Ratio] 14.7 % Normal 11.5-15.5 [facility] Comment on above: Performed By: #### A DIFF, CBC, ANEU, GFR, BMP #### [place] [address] Hematocrit (Bld) [Volume fraction] 39.7 % Normal 34.0-46.0 [facility] Comment on above: Performed By: #### A DIFF, CBC, ANEU, GFR, BMP #### [place] [address] Hgb 13.2 G/dL Normal 12.0-16.0 [facility] Comment on above: Performed By: #### A DIFF, CBC, ANEU, GFR, BMP #### [place] [address] MCH (RBC) [Entitic mass] 30.6 pg Normal 27.0-33.0 [facility] Comment on above: Performed By: #### A DIFF, CBC, ANEU, GFR, BMP #### [place] [address] MCHC 33.3 G/dL Normal 32.0-36.0 [facility] Comment on above: Performed By: #### A DIFF, CBC, ANEU, GFR, BMP #### [place] [address] MCV (RBC) [Entitic vol] 91.9 fL Normal 80.0-99.0 [facility] Comment on above: Performed By: #### A DIFF, CBC, ANEU, GFR, BMP #### [place] [id number] Platelet 228 10 3/mcL Normal 150-450 [facility] Comment on above: Performed By: #### A DIFF, CBC, ANEU, GFR, BMP #### [place] [address] Platelet mean volume (Bld) [Entitic vol] 10.1 fL Normal 6.6-10.5 [facility] Comment on above: Performed By: #### A DIFF, CBC, ANEU, GFR, BMP #### [place] [address] RBC 4.32 10 6/mcL Normal 4.10-5.30 [facility] Comment on above: Performed By: #### A DIFF, CBC, ANEU, GFR, BMP #### [place] [address] WBC 7.6 10 3/mcL Normal 4.5-10.8 [facility] Comment on above: Performed By: #### A DIFF, CBC, ANEU, GFR, BMP #### [place] [address] CMPon 09-03-2024 Albumin Level 3.0 G/dL Low 3.2-4.8 [facility] Comment on above: Performed By: #### A DIFF, CBC, ANEU, GFR, BMP #### [place] [address] Albumin/Globulin [Mass ratio] 0.9 {ratio} Normal 0.9-1.6 [facility] Comment on above: Performed By: #### A DIFF, CBC, ANEU, GFR, BMP #### [place] [address] ALP [Catalytic activity/Vol] 115 U/L Normal 38-126 [facility] Comment on above: Performed By: #### A DIFF, CBC, ANEU, GFR, BMP #### [place] [address] ALT [Catalytic activity/Vol] 37 U/L Normal 10-49 [facility] Comment on above: Performed By: #### A DIFF, CBC, ANEU, GFR, BMP #### [place] [address] AST [Catalytic activity/Vol] 31 U/L Normal 8-34 [facility] Comment on above: Performed By: #### A DIFF, CBC, ANEU, GFR, BMP #### [address] [address] Bili Total 0.50 mg/dL Normal 0.20-1.20 [facility] Comment on above: Result Comment: Use of this assay is not recommended for patients undergoing treatment with eltrombopag due to the potential for falsely elevated results. Performed By: #### A DIFF, CBC, ANEU, GFR, BMP #### [place] [address] BUN/Creatinine Ratio 29.7 ratio High 10.0-22.0 [facility] Comment on above: Performed By: #### A DIFF, CBC, ANEU, GFR, BMP #### [place] [id number] Calcium [Mass/Vol] 9.6 mg/dL Normal 8.7-10.4 [facility] Comment on above: Performed By: #### A DIFF, CBC, ANEU, GFR, BMP #### [place] [address] Chloride [Moles/Vol] 101 mmol/L Normal 98-110 [facility] Comment on above: Performed By: #### A DIFF, CBC, ANEU, GFR, BMP #### [place] [address] CO2 [Moles/Vol] 27 mmol/L Normal 22-32 [facility] Comment on above: Performed By: #### A DIFF, CBC, ANEU, GFR, BMP #### [place] [address] Creatinine [Mass/Vol] 1.01 mg/dL Normal 0.50-1.20 [facility] Comment on above: Result Comment: Test ing performed on [email or web address] analyzer using enzymatic creatinine methodology. Performed By: #### A DIFF, CBC, ANEU, GFR, BMP #### [place] [id number] Electrolyte Balance 10.0 mEq/L Normal 4.0-15.0 [facility] Comment on above: Performed By: #### A DIFF, CBC, ANEU, GFR, BMP #### [place] [id number] Globulin 3.4 G/dL Normal 1.5-3.8 [facility] Comment on above: Performed By: #### A DIFF, CBC, ANEU, GFR, BMP #### [address] [address] Glucose [Mass/Vol] 187 mg/dL High 82-115 [facility] Comment on above: Performed By: #### A DIFF, CBC, ANEU, GFR, BMP #### [address] [address] Potassium [Moles/Vol] 4.6 mmol/L Normal 3.5-5.0 [facility] Comment on above: Performed By: #### A DIFF, CBC, ANEU, GFR, BMP #### [address] [address] Sodium [Moles/Vol] 138 mmol/L Normal 136-145 [facility] Comment on above: Performed By: #### A DIFF, CBC, ANEU, GFR, BMP #### [address] [address] Total Protein 6.4 G/dL Normal 5.7-8.2 [facility] Comment on above: Performed By: #### A DIFF, CBC, ANEU, GFR, BMP #### [address] [address] Urea nitrogen [Mass/Vol] 30.0 mg/dL High 8.0-22.0 [facility] Comment on above: Performed By: #### A DIFF, CBC, ANEU, GFR, BMP #### [address] [address] LABORATORYOrdered By: Ann Carrillo on 09-03-2024 Glucose [Mass/Vol] 270 mg/dL [facility] Work Phone: LABORATORYOrdered By: SYSTEM SYSTEM [...] above: Interpretive Data: T esting performed on [email or web address] analyzer using enzymatic creatinine methodology. Electrolyte Balance [...] TSHon 09-03-2024 TSH 3.920 mIU/mL Normal 0.550-4.780 [facility] Comment on above: Performed By: #### A DIFF, CBC, ANEU, GFR, BMP #### [place] [address] CT HEAD OR BRAIN W/O CONTRAS Ton [...] 09/02/2024 3:10:44 PM Ordering Provider: SILVINO PEARL [facility] [place] 08-30-2024 RANDEE Telephone (FAMPWS) LINDSAY ACUNA ([id number]) 1945 F Date Time Provider Department 08/30/24 KAMERON CARUSO During your visit today, we recorded the following information about you: Jaiden Paulino, RN 08/30/2024 9:11 AM Signed Marya- [facility] reports patient was in [facility] with dx: stroke, and transferred to [facility]. Pt will be discharged from [facility] on 09/07/24 to home with [facility] SN PT OT [facility] AND [facility]. Asking if pcp agreeable to follow for C. Please phone Marya with verbal: [phone] Mj Glover APRN.GARRETT 08/30/2024 9:19 AM Signed [...] LPN - Fully Assessed Reason for Visit: [facility] requesting verbal agree to follow [...] Status:Closed by FOUZIA MILLER on 08/30/24 Normal [facility] .Auto Diffon 08-26-2024 Basophil, Absolute 0.1 10 3/mcL Normal 0.0-0.3 [facility] Comment on above: Performed By: #### A DIFF, CBC, ANEU, GFR, BMP #### [address] [address] Basophils/100 WBC (Bld) 1.0 % Normal 0.0-2.5 [facility] Comment on above: Performed By: #### A DIFF, CBC, ANEU, GFR, BMP #### [address] [address] Eosinophil, Absolute 0.3 10 3/mcL Normal 0.0-0.7 [facility] Comment on above: Performed By: #### A DIFF, CBC, ANEU, GFR, BMP #### [address] [address] Eosinophils/100 WBC (Bld) 4.2 % Normal 0.0-6.0 [facility] Comment on above: Performed By: #### A DIFF, CBC, ANEU, GFR, BMP #### [address] [address] Lymphocyte, Absolute 2.2 10 3/mcL Normal 0.9-4.3 [facility] Comment on above: Performed By: #### A DIFF, CBC, ANEU, GFR, BMP #### [address] [address] Lymphocytes/100 WBC (Bld) 26.3 % Normal 20.0-40.0 [facility] Comment on above: Performed By: #### A DIFF, CBC, ANEU, GFR, BMP #### [address] [address] Monocyte, Absolute 0.9 10 3/mcL Normal 0.1-1.4 [facility] Comment on above: Performed By: #### A DIFF, CBC, ANEU, GFR, BMP #### [address] [address] Monocytes/100 WBC (Bld) 11.4 % Normal 2.0-13.0 [facility] Comment on above: Performed By: #### A DIFF, CBC, ANEU, GFR, BMP #### [address] [address] Neutrophils/100 WBC (Bld) 57.1 % Normal 50.0-75.0 [facility] Comment on above: Performed By: #### A DIFF, CBC, ANEU, GFR, BMP #### [address] [address] .GFRon 08-26-2024 Estimated Glomerular Filtration Rate 59 ml/min/1.73sqm Normal [facility] Comment on above: Result Comment: [...] A DIFF, CBC, ANEU, GFR, BMP #### [address] [address] .NEUABSon 08-26-2024 Neutrophil, Absolute 4.7 10 3/mcL Normal 2.3-8.1 [facility] Comment on above: Performed By: #### A DIFF, CBC, ANEU, GFR, BMP #### [address] [address] BMPon 08-26-2024 BUN/Creatinine Ratio 35.1 ratio High 10.0-22.0 [facility] Comment on above: Performed By: #### A DIFF, CBC, ANEU, GFR, BMP #### [address] [address] Calcium [Mass/Vol] 9.8 mg/dL Normal 8.7-10.4 [facility] Comment on above: Performed By: #### A DIFF, CBC, ANEU, GFR, BMP #### [address] [address] Chloride [Moles/Vol] 98 mmol/L Normal 98-110 [facility] Comment on above: Performed By: #### A DIFF, CBC, ANEU, GFR, BMP #### [address] [address] CO2 [Moles/Vol] 25 mmol/L Normal 22-32 [facility] Comment on above: Performed By: #### A DIFF, CBC, ANEU, GFR, BMP #### [address] [address] Creatinine [Mass/Vol] 0.97 mg/dL Normal 0.50-1.20 [facility] Comment on above: Result Comment: Test ing performed on [email or web address] analyzer using enzymatic creatinine methodology. Performed By: #### A DIFF, CBC, ANEU, GFR, BMP #### [address] [address] Electrolyte Balance 12.0 mEq/L Normal 4.0-15.0 [facility] Comment on above: Performed By: #### A DIFF, CBC, ANEU, GFR, BMP #### [address] [address] Glucose [Mass/Vol] 160 mg/dL High 82-115 [facility] Comment on above: Performed By: #### A DIFF, CBC, ANEU, GFR, BMP #### [address] [address] Potassium [Moles/Vol] 4.7 mmol/L Normal 3.5-5.0 [facility] Comment on above: Result Comment: Spec imen slightly hemolyzed. Performed By: #### A DIFF, CBC, ANEU, GFR, BMP #### [address] [address] Sodium [Moles/Vol] 135 mmol/L Low 136-145 [facility] Comment on above: Performed By: #### A DIFF, CBC, ANEU, GFR, BMP #### [place] [address] Urea nitrogen [Mass/Vol] 34.0 mg/dL High 8.0-22.0 [facility] Comment on above: Performed By: #### A DIFF, CBC, ANEU, GFR, BMP #### [place] [address] CBCon 08-26-2024 Erythrocyte distribution width (RBC) [Ratio] 14.0 % Normal 11.5-15.5 [facility] Comment on above: Performed By: #### A DIFF, CBC, ANEU, GFR, BMP #### [place] [address] Hematocrit (Bld) [Volume fraction] 41.0 % Normal 34.0-46.0 [facility] Comment on above: Performed By: #### A DIFF, CBC, ANEU, GFR, BMP #### [place] [address] Hgb 13.4 G/dL Normal 12.0-16.0 [facility] Comment on above: Performed By: #### A DIFF, CBC, ANEU, GFR, BMP #### [place] [address] MCH (RBC) [Entitic mass] 30.0 pg Normal 27.0-33.0 [facility] Comment on above: Performed By: #### A DIFF, CBC, ANEU, GFR, BMP #### [place] [address] MCHC 32.7 G/dL Normal 32.0-36.0 [facility] Comment on above: Performed By: #### A DIFF, CBC, ANEU, GFR, BMP #### [place] [address] MCV (RBC) [Entitic vol] 91.9 fL Normal 80.0-99.0 [facility] Comment on above: Performed By: #### A DIFF, CBC, ANEU, GFR, BMP #### [address] [address] Platelet 297 10 3/mcL Normal 150-450 [facility] Comment on above: Performed By: #### A DIFF, CBC, ANEU, GFR, BMP #### [facility] [address] [place] [address] Platelet mean volume (Bld) [Entitic vol] 11.0 fL High 6.6-10.5 [facility] Comment on above: Performed By: #### A DIFF, CBC, ANEU, GFR, BMP #### [place] [id number] [place] [address] RBC 4.46 10 6/mcL Normal 4.10-5.30 [facility] Comment on above: Performed By: #### A DIFF, CBC, ANEU, GFR, BMP #### [place] [id number] [place] [address] WBC 8.3 10 3/mcL Normal 4.5-10.8 [facility] Comment on above: Performed By: #### A DIFF, CBC, ANEU, GFR, BMP #### [address] [address] LABORATORYOrdered By: SYSTEM SYSTEM on 08-26-2024 Basophils [...] above: Interpretive Data: T esting performed on [email or web address] analyzer using enzymatic creatinine methodology. Electrolyte Balance [...] [facility] HAND AND WRIST 6 [...] Sign Date: 08/25/2024 2:27:26 PM Ordering Provider: [facility] XR HUMERUS MINIMUM 2 VIEWS [...] Sign Date: 08/25/2024 2:26:11 PM Ordering Provider: [facility] XR SHOULDER MINIMUM 2 VIEWS [...] Sign Date: 08/25/2024 2:26:45 PM Ordering Provider: [facility] LABORATORYOrdered By: Kala lux on 08-23-2024 Glucose [Mass/Vol] 278 mg/dL [facility] [place] Work Phone: LABORATORYOrdered By: Kala lux on 08-22-2024 Glucose [Mass/Vol] 320 mg/dL [facility] elfego [place] Work Phone: A1Con 08-21-2024 Glucose [Mass/Vol] 194 mg/dL Normal [facility] Comment on above: Result Comment: Nancy mated Average Glucose calculated by equation ((28.7xA1C)-46.7) Estimated average glucose (eAG) is a calculated value from Hemoglobin A1C and is student services representative of the average blood glucose level in the last 2-3 month period. Normal range: less than 114 mg/dL Performed By: #### A 1C #### [address] [address] HbA1c (Bld) [Mass fraction] 8.4 % High 4.0-6.0 [facility] Comment on above: Performed By: #### A 1C #### [address] [address] LABORATORYOrdered By: SYSTEM SYSTEM on 08-21-2024 Glucose [Mass/Vol] 194 mg/dL Invalid Interpretation Code Auto Chem SS Comment on above: Interpretive Data: E stimated average glucose (eAG) is a calculated value from Hemoglobin A1C and is student services representative of the average blood glucose level in the last 2-3 month period. Normal range: less than 114 mg/dL HbA1c (Bld) [Mass fraction] 8.4 % High 4.0 - 6.0 % Auto Chem SS .Auto Diffon 08-20-2024 Basophil, Absolute 0.1 10 3/mcL Normal 0.0-0.3 [facility] Comment on above: Performed By: #### B MP, ADIFF, CBC, GFR, ANEU #### [address] [address] Basophils/100 WBC (Bld) 1.1 % Normal 0.0-2.5 [facility] Comment on above: Performed By: #### B MP, ADIFF, CBC, GFR, ANEU #### [address] [address] Eosinophil, Absolute 0.3 10 3/mcL Normal 0.0-0.7 [facility] Comment on above: Performed By: #### B MP, ADIFF, CBC, GFR, ANEU #### [address] [address] Eosinophils/100 WBC (Bld) 3.6 % Normal 0.0-6.0 [facility] Comment on above: Performed By: #### B MP, ADIFF, CBC, GFR, ANEU #### [address] [address] Lymphocyte, Absolute 1.7 10 3/mcL Normal 0.9-4.3 [facility] Comment on above: Performed By: #### B MP, ADIFF, CBC, GFR, ANEU #### [address] [address] Lymphocytes/100 WBC (Bld) 20.8 % Normal 20.0-40.0 [facility] Comment on above: Performed By: #### B MP, ADIFF, CBC, GFR, ANEU #### [address] [address] Monocyte, Absolute 0.9 10 3/mcL Normal 0.1-1.4 [facility] Comment on above: Performed By: #### B MP, ADIFF, CBC, GFR, ANEU #### [address] [address] Monocytes/100 WBC (Bld) 11.4 % Normal 2.0-13.0 [facility] Comment on above: Performed By: #### B MP, ADIFF, CBC, GFR, ANEU #### [address] [address] Neutrophils/100 WBC (Bld) 63.1 % Normal 50.0-75.0 [facility] Comment on above: Performed By: #### B MP, ADIFF, CBC, GFR, ANEU #### [address] [address] .GFRon 08-20-2024 Estimated Glomerular Filtration Rate 55 ml/min/1.73sqm Normal [facility] Comment on above: Result Comment: [...] A DIFF, CBC, ANEU, GFR, BMP #### [address] [address] .NEUABSon 08-20-2024 Neutrophil, Absolute 5.1 10 3/mcL Normal 2.3-8.1 [facility] Comment on above: Performed By: #### B MP, ADIFF, CBC, GFR, ANEU #### [address] [address] BMPon 08-20-2024 BUN/Creatinine Ratio 29.8 ratio High 10.0-22.0 [facility] Comment on above: Performed By: #### B MP, ADIFF, CBC, GFR, ANEU #### [address] [address] Calcium [Mass/Vol] 9.8 mg/dL Normal 8.7-10.4 [facility] Comment on above: Performed By: #### B MP, ADIFF, CBC, GFR, ANEU #### [address] [address] Chloride [Moles/Vol] 95 mmol/L Low 98-110 [facility] Comment on above: Performed By: #### B MP, ADIFF, CBC, GFR, ANEU #### [address] [address] CO2 [Moles/Vol] 34 mmol/L High 22-32 [facility] Comment on above: Performed By: #### B MP, ADIFF, CBC, GFR, ANEU #### [address] [address] Creatinine [Mass/Vol] 1.04 mg/dL Normal 0.50-1.20 [facility] Comment on above: Result Comment: Test ing performed on [email or web address] analyzer using enzymatic creatinine methodology. Performed By: #### B MP, ADIFF, CBC, GFR, ANEU #### [place] [id number] Electrolyte Balance 5.0 mEq/L Normal 4.0-15.0 [facility] Comment on above: Performed By: #### B MP, ADIFF, CBC, GFR, ANEU #### [address] [address] Glucose [Mass/Vol] 244 mg/dL High 82-115 [facility] Comment on above: Performed By: #### B MP, ADIFF, CBC, GFR, ANEU #### [place] [id number] Potassium [Moles/Vol] 4.8 mmol/L Normal 3.5-5.0 [facility] Comment on above: Result Comment: Spec imen slightly hemolyzed. Performed By: #### B MP, ADIFF, CBC, GFR, ANEU #### [place] [id number] Sodium [Moles/Vol] 134 mmol/L Low 136-145 [facility] Comment on above: Performed By: #### B MP, ADIFF, CBC, GFR, ANEU #### [place] [id number] Urea nitrogen [Mass/Vol] 31.0 mg/dL High 8.0-22.0 [facility] Comment on above: Performed By: #### B MP, ADIFF, CBC, GFR, ANEU #### [address] [address] CBCon 08-20-2024 Erythrocyte distribution width (RBC) [Ratio] 14.0 % Normal 11.5-15.5 [facility] Comment on above: Performed By: #### B MP, ADIFF, CBC, GFR, ANEU #### [place] [id number] Hematocrit (Bld) [Volume fraction] 41.9 % Normal 34.0-46.0 [facility] Comment on above: Performed By: #### B MP, ADIFF, CBC, GFR, ANEU #### [place] [address] Hgb 13.6 G/dL Normal 12.0-16.0 [facility] Comment on above: Performed By: #### B MP, ADIFF, CBC, GFR, ANEU #### [place] [address] MCH (RBC) [Entitic mass] 29.7 pg Normal 27.0-33.0 [facility] Comment on above: Performed By: #### B MP, ADIFF, CBC, GFR, ANEU #### [place] [address] MCHC 32.4 G/dL Normal 32.0-36.0 [facility] Comment on above: Performed By: #### B MP, ADIFF, CBC, GFR, ANEU #### [place] [address] MCV (RBC) [Entitic vol] 91.5 fL Normal 80.0-99.0 [facility] Comment on above: Performed By: #### B MP, ADIFF, CBC, GFR, ANEU #### [place] [address] Platelet 301 10 3/mcL Normal 150-450 [facility] Comment on above: Performed By: #### B MP, ADIFF, CBC, GFR, ANEU #### [place] [address] Platelet mean volume (Bld) [Entitic vol] 11.0 fL High 6.6-10.5 [facility] Comment on above: Performed By: #### B MP, ADIFF, CBC, GFR, ANEU #### [place] [address] RBC 4.58 10 6/mcL Normal 4.10-5.30 [facility] Comment on above: Performed By: #### B MP, ADIFF, CBC, GFR, ANEU #### [place] [address] WBC 8.1 10 3/mcL Normal 4.5-10.8 [facility] Comment on above: Performed By: #### B MP, ADIFF, CBC, GFR, ANEU #### [place] [id number] [place] [address] LABORATORYOrdered By: SYSTEM SYSTEM on 08-20-2024 Basophils [...] above: Interpretive Data: T esting performed on [email or web address] analyzer using enzymatic creatinine methodology. Electrolyte Balance [...] 08/18/2024 3:14:15 PM Ordering Provider: NANDO Anderson [facility] .Auto Diffon 08-16-2024 Basophil, Absolute 0.1 10 3/mcL Normal 0.0-0.3 [facility] Comment on above: Performed By: #### A DIFF, CBC, ANEU, GFR, BMP #### [address] [address] Basophils/100 WBC (Bld) 0.7 % Normal 0.0-2.5 [facility] Comment on above: Performed By: #### A DIFF, CBC, ANEU, GFR, BMP #### [address] [address] Eosinophil, Absolute 0.3 10 3/mcL Normal 0.0-0.7 [facility] Comment on above: Performed By: #### A DIFF, CBC, ANEU, GFR, BMP #### [address] [address] Eosinophils/100 WBC (Bld) 2.1 % Normal 0.0-6.0 [facility] Comment on above: Performed By: #### A DIFF, CBC, ANEU, GFR, BMP #### [address] [address] Lymphocyte, Absolute 1.9 10 3/mcL Normal 0.9-4.3 [facility] Comment on above: Performed By: #### A DIFF, CBC, ANEU, GFR, BMP #### [address] [address] Lymphocytes/100 WBC (Bld) 14.8 % Low 20.0-40.0 [facility] Comment on above: Performed By: #### A DIFF, CBC, ANEU, GFR, BMP #### [address] [address] Monocyte, Absolute 1.2 10 3/mcL Normal 0.1-1.4 [facility] Comment on above: Performed By: #### A DIFF, CBC, ANEU, GFR, BMP #### [address] [address] Monocytes/100 WBC (Bld) 9.8 % Normal 2.0-13.0 [facility] Comment on above: Performed By: #### A DIFF, CBC, ANEU, GFR, BMP #### [address] [address] Neutrophils/100 WBC (Bld) 72.6 % Normal 50.0-75.0 [facility] Comment on above: Performed By: #### A DIFF, CBC, ANEU, GFR, BMP #### [address] [address] .GFRon 08-16-2024 Estimated Glomerular Filtration Rate 58 ml/min/1.73sqm Normal [facility] Comment on above: Result Comment: [...] A DIFF, CBC, ANEU, GFR, BMP #### [address] [address] .NEUABSon 08-16-2024 Neutrophil, Absolute 9.2 10 3/mcL High 2.3-8.1 [facility] Comment on above: Performed By: #### A DIFF, CBC, ANEU, GFR, BMP #### [place] [address] BMPon 08-16-2024 BUN/Creatinine Ratio 34.3 ratio High 10.0-22.0 [facility] Comment on above: Performed By: #### A DIFF, CBC, ANEU, GFR, BMP #### [place] [address] Calcium [Mass/Vol] 9.0 mg/dL Normal 8.7-10.4 [facility] Comment on above: Performed By: #### A DIFF, CBC, ANEU, GFR, BMP #### [place] [address] Chloride [Moles/Vol] 100 mmol/L Normal 98-110 [facility] Comment on above: Performed By: #### A DIFF, CBC, ANEU, GFR, BMP #### [place] [address] CO2 [Moles/Vol] 30 mmol/L Normal 22-32 [facility] Comment on above: Performed By: #### A DIFF, CBC, ANEU, GFR, BMP #### [place] [address] Creatinine [Mass/Vol] 0.99 mg/dL Normal 0.50-1.20 [facility] Comment on above: Result Comment: Test ing performed on [email or web address] analyzer using enzymatic creatinine methodology. Performed By: #### A DIFF, CBC, ANEU, GFR, BMP #### [place] [id number] Electrolyte Balance 5.0 mEq/L Normal 4.0-15.0 [facility] Comment on above: Performed By: #### A DIFF, CBC, ANEU, GFR, BMP #### [address] [address] Glucose [Mass/Vol] 259 mg/dL High 82-115 [facility] Comment on above: Performed By: #### A DIFF, CBC, ANEU, GFR, BMP #### [address] [address] Potassium [Moles/Vol] 5.0 mmol/L Normal 3.5-5.0 [facility] Comment on above: Performed By: #### A DIFF, CBC, ANEU, GFR, BMP #### [address] [address] Sodium [Moles/Vol] 135 mmol/L Low 136-145 [facility] Comment on above: Performed By: #### A DIFF, CBC, ANEU, GFR, BMP #### [place] [id number] Urea nitrogen [Mass/Vol] 34.0 mg/dL High 8.0-22.0 [facility] Comment on above: Performed By: #### A DIFF, CBC, ANEU, GFR, BMP #### [place] [id number] CBCon 08-16-2024 Erythrocyte distribution width (RBC) [Ratio] 13.7 % Normal 11.5-15.5 [facility] Comment on above: Performed By: #### A DIFF, CBC, ANEU, GFR, BMP #### [place] [id number] Hematocrit (Bld) [Volume fraction] 43.3 % Normal 34.0-46.0 [facility] Comment on above: Performed By: #### A DIFF, CBC, ANEU, GFR, BMP #### [place] [id number] Hgb 13.9 G/dL Normal 12.0-16.0 [facility] Comment on above: Performed By: #### A DIFF, CBC, ANEU, GFR, BMP #### [place] [id number] MCH (RBC) [Entitic mass] 30.0 pg Normal 27.0-33.0 [facility] Comment on above: Performed By: #### A DIFF, CBC, ANEU, GFR, BMP #### [place] [address] MCHC 32.1 G/dL Normal 32.0-36.0 [facility] Comment on above: Performed By: #### A DIFF, CBC, ANEU, GFR, BMP #### [place] [address] MCV (RBC) [Entitic vol] 93.6 fL Normal 80.0-99.0 [facility] Comment on above: Performed By: #### A DIFF, CBC, ANEU, GFR, BMP #### [place] [address] Platelet 230 10 3/mcL Normal 150-450 [facility] Comment on above: Performed By: #### A DIFF, CBC, ANEU, GFR, BMP #### [place] [address] Platelet mean volume (Bld) [Entitic vol] 10.7 fL High 6.6-10.5 [facility] Comment on above: Performed By: #### A DIFF, CBC, ANEU, GFR, BMP #### [place] [address] RBC 4.63 10 6/mcL Normal 4.10-5.30 [facility] Comment on above: Performed By: #### A DIFF, CBC, ANEU, GFR, BMP #### [place] [address] WBC 12.7 10 3/mcL High 4.5-10.8 [facility] Comment on above: Performed By: #### A DIFF, CBC, ANEU, GFR, BMP #### [place] [address] LABORATORYOrdered By: Marily Panda on 08-16-2024 Blood Glucose Interventions Administered agent to decrease blood sugar (08/16/24 12:23 PM) [employer] Work Phone: Blood Glucose Interventions Retest (08/16/24 10:15 AM) [employer] Work Phone: Bacteria identified Cx Nom ( Bld)on 08-15-2024 Bacteria identified Cx Nom (Unsp spec) NO GROWTH DAY 5 OF 5 [facility] CARDIAC RHYTHMon 08-15-2024 [facility] CBC,PLATELETSon 08-15-2024 Erythrocyte distribution width (RBC) [Ratio] 13.4 % 10.8 - 14.9 % [facility] Hematocrit (Bld) [Volume fraction] 43.8 % 34.9 - 44.3 % [facility] Hemoglobin (Bld) [Mass/Vol] 13.5 g/dL 11.4 - 15.2 g/dL [facility] Interpretation and review of laboratory results Abnormal [facility] MCH (RBC) [Entitic mass] 28.9 pg 25.9 - 33.9 pg [facility] MCHC (RBC) [Mass/Vol] 30.8 g/dL Low 31.4 - 35.9 g/dL [facility] MCV (RBC) [Entitic vol] 93.8 fL 79.6 - 97.7 fL [facility] Platelet mean volume (Bld) [Entitic vol] 12 fL 8.5 - 12.2 fL [facility] Platelets (Bld) [#/Vol] 252 10*3/uL 150 - 393 K/uL [facility] RBC (Bld) [#/Vol] 4.67 10*6/uL [facility] WBC (Bld) [#/Vol] 11.94 10*3/uL High 3.99 - 11.19 K/uL [facility] Hematocrit (Bld) [Volume fraction] 43.8 % Normal 34.9-44.3 [facility] Comment on above: Performed By: #### X M #### [facility] (DEFAULT) [address] [address] Hemoglobin (Bld) [Mass/Vol] 13.5 g/dL Normal 11.4-15.2 [facility] Comment on above: Performed By: #### X M #### [facility] (DEFAULT) [address] [place] [address] MCV (RBC) [Entitic vol] 93.8 fL Normal 79.6-97.7 [facility] Comment on above: Performed By: #### X M #### [facility] (DEFAULT) [address] [address] Mean Cell Hgb 28.9 pg Normal 25.9-33.9 [facility] Comment on above: Performed By: #### X M #### [facility] (DEFAULT) [address] [address] Mean Cell Hgb Conc 30.8 g/dL Low 31.4-35.9 [facility] Comment on above: Performed By: #### X M #### [facility] (DEFAULT) [address] [address] Platelet mean volume (Bld) [Entitic vol] 12.0 fL Normal 8.5-12.2 [facility] Comment on above: Performed By: #### X M #### [facility] (DEFAULT) [address] [address] Platelets (Bld) [#/Vol] 252 10*3/uL Normal 150-393 [facility] Comment on above: Performed By: #### X M #### [facility] (DEFAULT) [address] [place] [address] RBC (Bld) [#/Vol] 4.67 10*6/uL Normal 3.91-5.04 [facility] Comment on above: Performed By: #### X M #### [facility] (DEFAULT) [address] [address] RBC Distribution 13.4 % Normal 10.8-14.9 [facility] Comment on above: Performed By: #### X M #### [facility] (DEFAULT) [address] [place] [address] WBC (Bld) [#/Vol] 11.94 10*3/uL High 3.99-11.19 [facility] Comment on above: Performed By: #### X M #### [facility] (DEFAULT) [address] [place] [address] CHEM 7 (LYTES,BUN,CREA,GLUC) on 08-15-2024 Anion gap [Moles/Vol] 16 mmol/L 7 - 17 mmol/L [facility] Chloride [Moles/Vol] 99 mmol/L 98 - 10 8 mmol/L [facility] CO2 [Moles/Vol] 25 mmol/L 21 - 31 mmol/L [facility] Creatinine [Mass/Vol] 1.27 mg/dL High 0.50 - 1.20 mg/dL [facility] eGFR, CKD-EPI, Female 42 Low - PINF [facility] Glucose [Mass/Vol] 214 mg/dL High 70 - 179 mg/dL [facility] Interpretation and review of laboratory results Abnormal [facility] Osmolality Calc [Osmolality] 306 High [facility] Potassium [Moles/Vol] 4.8 mmol/L 3.5 - 5.0 mmol/L [facility] Sodium [Moles/Vol] 135 mmol/L 135 - 145 mmol/L [facility] Urea nitrogen [Mass/Vol] 51 mg/dL High 7 - 25 mg/dL [facility] Urea nitrogen/Creatinine [Mass ratio] 40 mg/mg [facility] Anion gap [Moles/Vol] 16 mmol/L Normal 7-17 [facility] Comment on above: Performed By: #### H [facility] #### [facility] (DEFAULT) [address] [place] [address] Chloride [Moles/Vol] 99 mmol/L Normal 98-108 [facility] Comment on above: Performed By: #### H [facility] #### [facility] (DEFAULT) [address] [place] [id number] CO2 [Moles/Vol] 25 mmol/L Normal 21-31 [facility] Comment on above: Performed By: #### H EMOGC #### [facility] (DEFAULT) [address] [place] [id number] Creatinine [Mass/Vol] 1.27 mg/dL High 0.50-1.20 [facility] Comment on above: Performed By: #### H EMOGC #### [facility] (DEFAULT) [address] [place] [id number] GFR/1.73 sq M.predicted among non-blacks MDRD (S/P/Bld) [Vol rate/Area] 43 mL/min/{1.73_m2} Low >=60 [facility] Comment on above: Result Comment: Repo rted eGFR is based on the CKD-EPI 2020 equation using creatinine, age, and sex. Performed By: #### H EMO #### [facility] (DEFAULT) [address] [place], [place] [id number] Glucose [Mass/Vol] 214 mg/dL High Nonfastin -179 mg/dL; Fastin-99 [facility] Comment on above: Performed By: #### H EMO #### [facility] (DEFAULT) [address] [place] [address] Osmolality [Osmolality] 306 mosm/kg High 278-305 [facility] Comment on above: Performed By: #### H EMOGC #### [facility] (DEFAULT) [address] [place] [address] 57160 Potassium [Moles/Vol] 4.8 mmol/L Normal 3.5-5.0 [facility] Comment on above: Performed By: #### H EMOGC #### [facility] (DEFAULT) [address] [place] [address]37 Sodium [Moles/Vol] 135 mmol/L Normal 135-145 [facility] Comment on above: Performed By: #### H EMOGC #### [facility] (DEFAULT) [address] [place] [address] Urea nitrogen [Mass/Vol] 51 mg/dL High 7-25 [facility] Comment on above: Performed By: #### H [facility] #### [facility] (DEFAULT) [address] [place] [address] Urea nitrogen/Creatinine [Mass ratio] 40 mg/mg Normal [facility] Comment on above: Performed By: #### H [facility] #### [facility] (DEFAULT) [address] [place] [address] GLUCOSE POCon 08-15-2024 Glucose [Mass/Vol] 190 mg/dL High 70 - 179 mg/dL [facility] Interpretation and review of laboratory results Abnormal [facility] POC Sample Type CAPBL [facility] Glucose [Mass/Vol] 146 mg/dL 70 - 179 mg/dL [facility] POC Sample Type CAPBL [facility] Glucose [Mass/Vol] 215 mg/dL High 70 - 179 mg/dL [facility] Interpretation and review of laboratory results Abnormal [facility] POC Sample Type CAPBL [facility] MAGNESIUMon 08-15-2024 Interpretation and review of laboratory results Normal [facility] Magnesium [Mass/Vol] 1.6 mg/dL 1.6 - 2 .6 mg/dL [facility] Magnesium [Mass/Vol] 1.6 mg/dL Normal 1.6-2.6 [facility] Comment on above: Performed By: #### H [facility] #### [facility] (DEFAULT) [address] [place] [address] No Panel Informationon 08-15 [facility] CBC,PLATELETSon 08-14-2024 Erythrocyte distribution width (RBC) [Ratio] 13.4 % 10.8 - 14.9 % [facility] Hematocrit (Bld) [Volume fraction] 47.9 % High 34.9 - 44.3 % [facility] Hemoglobin (Bld) [Mass/Vol] 14.3 g/dL 11.4 - 15.2 g/dL [facility] Interpretation and review of laboratory results Abnormal [facility] MCH (RBC) [Entitic mass] 29.3 pg 25.9 - 33.9 pg [facility] MCHC (RBC) [Mass/Vol] 29.9 g/dL Low 31.4 - 35.9 g/dL [facility] MCV (RBC) [Entitic vol] 98.2 fL High 79.6 - 97.7 fL [facility] Platelet mean volume (Bld) [Entitic vol] 11.3 fL 8.5 - 12.2 fL [facility] Platelets (Bld) [#/Vol] 229 10*3/uL 150 - 393 K/uL [facility] RBC (Bld) [#/Vol] 4.88 10*6/uL [facility] WBC (Bld) [#/Vol] 12.14 10*3/uL High 3.99 - 11.19 K/uL [facility] Hematocrit (Bld) [Volume fraction] 47.9 % High 34.9-44.3 [facility] Comment on above: Performed By: #### X M #### [facility] (DEFAULT) [address] [address] Hemoglobin (Bld) [Mass/Vol] 14.3 g/dL Normal 11.4-15.2 [facility] Comment on above: Performed By: #### X M #### [facility] (DEFAULT) [address] [address] MCV (RBC) [Entitic vol] 98.2 fL High 79.6-97.7 O [facility] Comment on above: Performed By: #### X M #### [facility] (DEFAULT) [address] [place] [address] Mean Cell Hgb 29.3 pg Normal 25.9-33.9 [facility] Comment on above: Performed By: #### X M #### [facility] (DEFAULT) [address] [place] [address] Mean Cell Hgb Conc 29.9 g/dL Low 31.4-35.9 [facility] Comment on above: Performed By: #### X M #### [facility] (DEFAULT) [address] [place] [address] Platelet mean volume (Bld) [Entitic vol] 11.3 fL Normal 8.5-12.2 [facility] Comment on above: Performed By: #### X M #### [facility] (DEFAULT) [address] [place] [address] Platelets (Bld) [#/Vol] 229 10*3/uL Normal 150-393 [facility] Comment on above: Performed By: #### X M #### [facility] (DEFAULT) [address] [place] [address] 11453 RBC (Bld) [#/Vol] 4.88 10*6/uL Normal 3.91-5.04 [facility] Comment on above: Performed By: #### X M #### [facility] (DEFAULT) [address] [place] [address] 92058 RBC Distribution 13.4 % Normal 10.8-14.9 [facility] Comment on above: Performed By: #### X M #### [facility] (DEFAULT) [address] [place] [address] 02731 WBC (Bld) [#/Vol] 12.14 10*3/uL High 3.99-11.19 [facility] Comment on above: Performed By: #### X M #### [facility] (DEFAULT) [address] [place] [address] CHEM 7 (LYTES,BUN,CREA,GLUC) on 08-14-2024 Anion gap [Moles/Vol] 16 mmol/L 7 - 17 mmol/L [facility] Chloride [Moles/Vol] 101 mmol/L 98 - 10 8 mmol/L [facility] CO2 [Moles/Vol] 23 mmol/L 21 - 31 mmol/L [facility] Creatinine [Mass/Vol] 1.15 mg/dL 0.50 - 1.20 mg/dL [facility] eGFR, CKD-EPI, Female 48 Low - PINF [facility] Glucose [Mass/Vol] 208 mg/dL High 70 - 179 mg/dL [facility] Interpretation and review of laboratory results Abnormal [facility] Osmolality Calc [Osmolality] 304 [facility] Potassium [Moles/Vol] 4.7 mmol/L 3.5 - 5.0 mmol/L [facility] Sodium [Moles/Vol] 135 mmol/L 135 - 145 mmol/L [facility] Urea nitrogen [Mass/Vol] 47 mg/dL High 7 - 25 mg/dL [facility] Urea nitrogen/Creatinine [Mass ratio] 41 mg/mg [facility] Anion gap [Moles/Vol] 16 mmol/L Normal 7-17 [facility] Comment on above: Performed By: #### B LDCULT #### [facility] (DEFAULT) [address] [place] [address] Chloride [Moles/Vol] 101 mmol/L Normal 98-108 [facility] Comment on above: Performed By: #### B LDCULT #### [facility] (DEFAULT) [address] [place] [address] CO2 [Moles/Vol] 23 mmol/L Normal 21-31 [facility] Comment on above: Performed By: #### B LDCULT #### [facility] (DEFAULT) [address] [place] [address] Creatinine [Mass/Vol] 1.15 mg/dL Normal 0.50-1.20 [facility] Comment on above: Performed By: #### B LDCULT #### [facility] (DEFAULT) [address] [place] [address] 07675 GFR/1.73 sq M.predicted among non-blacks MDRD (S/P/Bld) [Vol rate/Area] 48 mL/min/{1.73_m2} Low >=60 [facility] Comment on above: Result Comment: Repo rted eGFR is based on the CKD-EPI 2020 equation using creatinine, age, and sex. Performed By: #### B LDCULT #### [facility] (DEFAULT) [address] [place] [address] Glucose [Mass/Vol] 208 mg/dL High Nonfastin -179 mg/dL; Fastin-99 [facility] Comment on above: Performed By: #### B LDCULT #### [facility] (DEFAULT) [address] [place] [address]66 Osmolality [Osmolality] 304 mosm/kg Normal 278-305 [facility] Comment on above: Performed By: #### B LDCULT #### [facility] (DEFAULT) [address] [place] [address] 88496 Potassium [Moles/Vol] 4.7 mmol/L Normal 3.5-5.0 [facility] Comment on above: Performed By: #### B LDCULT #### [facility] (DEFAULT) [address] [place] [address] 69218 Sodium [Moles/Vol] 135 mmol/L Normal 135-145 [facility] Comment on above: Performed By: #### B LDCULT #### [facility] (DEFAULT) [address] [place] [address] 50781 Urea nitrogen [Mass/Vol] 47 mg/dL High 7-25 [facility] Comment on above: Performed By: #### B LDCULT #### [facility] (DEFAULT) [address] [place] [address] 00292 Urea nitrogen/Creatinine [Mass ratio] 41 mg/mg Normal [facility] Comment on above: Performed By: #### B LDCULT #### [facility] (DEFAULT) [address] [place] [address] 14257 GLUCOSE POCon 08-14-2024 Glucose [Mass/Vol] 204 mg/dL High 70 - 179 mg/dL [facility] Interpretation and review of laboratory results Abnormal [facility] POC Sample Type CAPBL [facility] Glucose [Mass/Vol] 264 mg/dL High 70 - 179 mg/dL [facility] Interpretation and review of laboratory results Abnormal [facility] POC Sample Type CAPBL [facility] Glucose [Mass/Vol] 189 mg/dL High 70 - 179 mg/dL [facility] Interpretation and review of laboratory results Abnormal [facility] POC Sample Type CAPBL [facility] MAGNESIUMon 08-14-2024 Interpretation and review of laboratory results Normal [facility] Magnesium [Mass/Vol] 1.6 mg/dL 1.6 - 2 .6 mg/dL [facility] Magnesium [Mass/Vol] 1.6 mg/dL Normal 1.6-2.6 [facility] Comment on above: Performed By: #### B LDCULT #### [facility] (DEFAULT) [address] [id number] No Panel Informationon 08-14 [facility] CBC,PLATELETSon 08-13-2024 Erythrocyte distribution width (RBC) [Ratio] 13.4 % 10.8 - 14.9 % [facility] Hematocrit (Bld) [Volume fraction] 45.7 % High 34.9 - 44.3 % [facility] Hemoglobin (Bld) [Mass/Vol] 14.3 g/dL 11.4 - 15.2 g/dL [facility] Interpretation and review of laboratory results Abnormal [facility] MCH (RBC) [Entitic mass] 29.5 pg 25.9 - 33.9 pg [facility] MCHC (RBC) [Mass/Vol] 31.3 g/dL Low 31.4 - 35.9 g/dL [facility] MCV (RBC) [Entitic vol] 94.2 fL 79.6 - 97.7 fL [facility] Platelet mean volume (Bld) [Entitic vol] 11.7 fL 8.5 - 12.2 fL [facility] Platelets (Bld) [#/Vol] 245 10*3/uL 150 - 393 K/uL [facility] RBC (Bld) [#/Vol] 4.85 10*6/uL [facility] WBC (Bld) [#/Vol] 12.02 10*3/uL High 3.99 - 11.19 K/uL [facility] Hematocrit (Bld) [Volume fraction] 45.7 % High 34.9-44.3 [facility] Comment on above: Performed By: #### H [facility] #### [facility] (DEFAULT) [address] [address] Hemoglobin (Bld) [Mass/Vol] 14.3 g/dL Normal 11.4-15.2 [facility] Comment on above: Performed By: #### H EMOGC #### [facility] (DEFAULT) [address] [place] [address] 60938 MCV (RBC) [Entitic vol] 94.2 fL Normal 79.6-97.7 O [facility] Comment on above: Performed By: #### H EMOGC #### [facility] (DEFAULT) [address] [place] [address] 71613 Mean Cell Hgb 29.5 pg Normal 25.9-33.9 [facility] Comment on above: Performed By: #### H EMOGC #### [facility] (DEFAULT) [address] [place] [address] 52980 Mean Cell Hgb Conc 31.3 g/dL Low 31.4-35.9 [facility] Comment on above: Performed By: #### H EMO #### [facility] (DEFAULT) [address] [place] [address] 00449 Platelet mean volume (Bld) [Entitic vol] 11.7 fL Normal 8.5-12.2 [facility] Comment on above: Performed By: #### H EMO #### [facility] (DEFAULT) [address] [place] [address] 90016 Platelets (Bld) [#/Vol] 245 10*3/uL Normal 150-393 [facility] Comment on above: Performed By: #### H EMO #### [facility] (DEFAULT) [address] [place] [address] 77295 RBC (Bld) [#/Vol] 4.85 10*6/uL Normal 3.91-5.04 [facility] Comment on above: Performed By: #### H EMO #### [facility] (DEFAULT) [address] [place] [address] 62237 RBC Distribution 13.4 % Normal 10.8-14.9 [facility] Comment on above: Performed By: #### H EMO #### [facility] (DEFAULT) [address] [place] [address] 27041 WBC (Bld) [#/Vol] 12.02 10*3/uL High 3.99-11.19 [facility] Comment on above: Performed By: #### H EMO #### [facility] (DEFAULT) [address] [place] [address] 29562 CHEM 7 (LYTES,BUN,CREA,GLUC) on 08-13-2024 Anion gap [Moles/Vol] 15 mmol/L 7 - 17 mmol/L [facility] Chloride [Moles/Vol] 104 mmol/L 98 - 10 8 mmol/L [facility] CO2 [Moles/Vol] 23 mmol/L 21 - 31 mmol/L [facility] Creatinine [Mass/Vol] 1.18 mg/dL 0.50 - 1.20 mg/dL [facility] eGFR, CKD-EPI, Female 47 Low - PINF [facility] Glucose [Mass/Vol] 225 mg/dL High 70 - 179 mg/dL [facility] Interpretation and review of laboratory results Abnormal [facility] Osmolality Calc [Osmolality] 311 High [facility] Potassium [Moles/Vol] 4.6 mmol/L 3.5 - 5.0 mmol/L [facility] Sodium [Moles/Vol] 137 mmol/L 135 - 145 mmol/L [facility] Urea nitrogen [Mass/Vol] 55 mg/dL High 7 - 25 mg/dL [facility] Urea nitrogen/Creatinine [Mass ratio] 47 mg/mg [facility] Anion gap [Moles/Vol] 15 mmol/L Normal 7-17 [facility] Comment on above: Performed By: #### H [facility] #### [facility] (DEFAULT) [address] [address] Chloride [Moles/Vol] 104 mmol/L Normal 98-108 [facility] Comment on above: Performed By: #### H [facility] #### [facility] (DEFAULT) [address] [address] CO2 [Moles/Vol] 23 mmol/L Normal 21-31 [facility] Comment on above: Performed By: #### H [facility] #### [facility] (DEFAULT) [address] [address] Creatinine [Mass/Vol] 1.18 mg/dL Normal 0.50-1.20 [facility] Comment on above: Performed By: #### H [facility] #### [facility] (DEFAULT) [address] [address] GFR/1.73 sq M.predicted among non-blacks MDRD (S/P/Bld) [Vol rate/Area] 47 mL/min/{1.73_m2} Low >=60 [facility] Comment on above: Result Comment: Repo rted eGFR is based on the CKD-EPI 2020 equation using creatinine, age, and sex. Performed By: #### H EMO #### [facility] (DEFAULT) [address] [place] [address] Glucose [Mass/Vol] 225 mg/dL High Nonfastin -179 mg/dL; Fastin-99 [facility] Comment on above: Performed By: #### H EMOGC #### [facility] (DEFAULT) [address] [place] [address]3762 Osmolality [Osmolality] 311 mosm/kg High 278-305 [facility] Comment on above: Performed By: #### H EMO #### [facility] (DEFAULT) [address] [place] [address] 92635 Potassium [Moles/Vol] 4.6 mmol/L Normal 3.5-5.0 [facility] Comment on above: Performed By: #### H EMO #### [facility] (DEFAULT) [address] [place] [address] Sodium [Moles/Vol] 137 mmol/L Normal 135-145 [facility] Comment on above: Performed By: #### H EMO #### [facility] (DEFAULT) [address] [place] [address] 32383 Urea nitrogen [Mass/Vol] 55 mg/dL High 7-25 [facility] Comment on above: Performed By: #### H EMO #### [facility] (DEFAULT) [address] [place] [address] 69775 Urea nitrogen/Creatinine [Mass ratio] 47 mg/mg Normal [facility] Comment on above: Performed By: #### H EMOGC #### [facility] (DEFAULT) [address] [place] [address] 78139 GLUCOSE POCon 08-13-2024 Glucose [Mass/Vol] 195 mg/dL High 70 - 179 mg/dL [facility] Interpretation and review of laboratory results Abnormal [facility] POC Sample Type [facility] Glucose [Mass/Vol] 198 mg/dL High 70 - 179 mg/dL [facility] Interpretation and review of laboratory results Abnormal [facility] POC Sample Type [facility] Glucose [Mass/Vol] 158 mg/dL 70 - 179 mg/dL [facility] POC Sample Type [facility] Glucose [Mass/Vol] 211 mg/dL High 70 - 179 mg/dL [facility] Interpretation and review of laboratory results Abnormal [facility] POC Sample Type [facility] Glucose [Mass/Vol] 240 mg/dL High 70 - 179 mg/dL [facility] Interpretation and review of laboratory results Abnormal [facility] POC Sample Type CAPBL [facility] MAGNESIUMon 08-13-2024 Interpretation and review of laboratory results Normal [facility] Magnesium [Mass/Vol] 1.8 mg/dL 1.6 - 2 .6 mg/dL [facility] Magnesium [Mass/Vol] 1.8 mg/dL Normal 1.6-2.6 [facility] Comment on above: Performed By: #### H [facility] #### [facility] (DEFAULT) [address] [place] [address] No Panel Informationon 08-13 [facility] CBC,PLATELETSon 08-12-2024 Erythrocyte distribution width (RBC) [Ratio] 13.6 % 10.8 - 14.9 % [facility] Hematocrit (Bld) [Volume fraction] 45.1 % High 34.9 - 44.3 % [facility] Hemoglobin (Bld) [Mass/Vol] 14.3 g/dL 11.4 - 15.2 g/dL [facility] Interpretation and review of laboratory results Abnormal [facility] MCH (RBC) [Entitic mass] 29.7 pg 25.9 - 33.9 pg [facility] MCHC (RBC) [Mass/Vol] 31.7 g/dL 31.4 - 35.9 g/dL [facility] MCV (RBC) [Entitic vol] 93.6 fL 79.6 - 97.7 fL [facility] Platelet mean volume (Bld) [Entitic vol] 11.4 fL 8.5 - 12.2 fL [facility] Platelets (Bld) [#/Vol] 241 10*3/uL 150 - 393 K/uL [facility] RBC (Bld) [#/Vol] 4.82 10*6/uL [facility] WBC (Bld) [#/Vol] 14.32 10*3/uL High 3.99 - 11.19 K/uL [facility] Hematocrit (Bld) [Volume fraction] 45.1 % High 34.9-44.3 [facility] Comment on above: Performed By: #### H [facility] #### [facility] (DEFAULT) [address] [address] Hemoglobin (Bld) [Mass/Vol] 14.3 g/dL Normal 11.4-15.2 [facility] Comment on above: Performed By: #### H [facility] #### [facility] (DEFAULT) [address] [address] MCV (RBC) [Entitic vol] 93.6 fL Normal 79.6-97.7 O [facility] Comment on above: Performed By: #### H [facility] #### [facility] (DEFAULT) [address] [address] Mean Cell Hgb 29.7 pg Normal 25.9-33.9 [facility] Comment on above: Performed By: #### H [facility] #### [facility] (DEFAULT) [address] [place] [address] 88264 Mean Cell Hgb Conc 31.7 g/dL Normal 31.4-35.9 [facility] Comment on above: Performed By: #### H EMOGC #### [facility] (DEFAULT) [address] [place] [address] 15157 Platelet mean volume (Bld) [Entitic vol] 11.4 fL Normal 8.5-12.2 [facility] Comment on above: Performed By: #### H EMOGC #### [facility] (DEFAULT) [address] [place] [address] 19776 Platelets (Bld) [#/Vol] 241 10*3/uL Normal 150-393 [facility] Comment on above: Performed By: #### H EMOGC #### [facility] (DEFAULT) [address] [place] [address] 83537 RBC (Bld) [#/Vol] 4.82 10*6/uL Normal 3.91-5.04 [facility] Comment on above: Performed By: #### H EMOGC #### [facility] (DEFAULT) [address] [place] [address] 48073 RBC Distribution 13.6 % Normal 10.8-14.9 [facility] Comment on above: Performed By: #### H EMOGC #### [facility] (DEFAULT) [address] [place] [address] 18011 WBC (Bld) [#/Vol] 14.32 10*3/uL High 3.99-11.19 [facility] Comment on above: Performed By: #### H EMOGC #### [facility] (DEFAULT) [address] [address] CHEM 7 (LYTES,BUN,CREA,GLUC) on 08-12-2024 Anion gap [Moles/Vol] 15 mmol/L 7 - 17 mmol/L [facility] Chloride [Moles/Vol] 104 mmol/L 98 - 10 8 mmol/L [facility] CO2 [Moles/Vol] 27 mmol/L 21 - 31 mmol/L [facility] Creatinine [Mass/Vol] 1.36 mg/dL High 0.50 - 1.20 mg/dL [facility] eGFR, CKD-EPI, Female 40 Low - PINF [facility] Glucose [Mass/Vol] 126 mg/dL 70 - 179 mg/dL [facility] Interpretation and review of laboratory results Abnormal [facility] Osmolality Calc [Osmolality] 313 High [facility] Potassium [Moles/Vol] 4.5 mmol/L 3.5 - 5.0 mmol/L [facility] Sodium [Moles/Vol] 141 mmol/L 135 - 145 mmol/L [facility] Urea nitrogen [Mass/Vol] 56 mg/dL High 7 - 25 mg/dL [facility] Urea nitrogen/Creatinine [Mass ratio] 41 mg/mg [facility] Anion gap [Moles/Vol] 15 mmol/L Normal 7-17 [facility] Comment on above: Performed By: #### T YPEC #### [facility] (DEFAULT) [address] [place] [address] Chloride [Moles/Vol] 104 mmol/L Normal 98-108 [facility] Comment on above: Performed By: #### T YPEC #### [facility] (DEFAULT) [address] [place] [address] 51285 CO2 [Moles/Vol] 27 mmol/L Normal 21-31 [facility] Comment on above: Performed By: #### T YPEC #### [facility] (DEFAULT) [address] [place] [address] Creatinine [Mass/Vol] 1.36 mg/dL High 0.50-1.20 [facility] Comment on above: Performed By: #### T YPEC #### [facility] (DEFAULT) [address] [place] [address]208 GFR/1.73 sq M.predicted among non-blacks MDRD (S/P/Bld) [Vol rate/Area] 40 mL/min/{1.73_m2} Low >=60 [facility] Comment on above: Result Comment: Repo rted eGFR is based on the CKD-EPI 2020 equation using creatinine, age, and sex. Performed By: #### T YPEC #### [facility] (DEFAULT) [address] [place] [address] Glucose [Mass/Vol] 126 mg/dL Normal Nonfastin -179 mg/dL; Fastin-99 [facility] Comment on above: Performed By: #### T YPEC #### [facility] (DEFAULT) [address] [place] [address] Osmolality [Osmolality] 313 mosm/kg High 278-305 [facility] Comment on above: Performed By: #### T YPEC #### [facility] (DEFAULT) [address] [place] [address] 91866 Potassium [Moles/Vol] 4.5 mmol/L Normal 3.5-5.0 [facility] Comment on above: Performed By: #### T YPEC #### [facility] (DEFAULT) [address] [place] [address] Sodium [Moles/Vol] 141 mmol/L Normal 135-145 [facility] Comment on above: Performed By: #### T YPEC #### [facility] (DEFAULT) [address] [place] [address] Urea nitrogen [Mass/Vol] 56 mg/dL High 7-25 [facility] Comment on above: Performed By: #### T YPEC #### [facility] (DEFAULT) [address] [place] [address] Urea nitrogen/Creatinine [Mass ratio] 41 mg/mg Normal [facility] Comment on above: Performed By: #### T YPEC #### [facility] (DEFAULT) [address] [place] [address] GLUCOSE POCon 08-12-2024 Glucose [Mass/Vol] 231 mg/dL High 70 - 179 mg/dL [facility] Interpretation and review of laboratory results Abnormal [facility] POC Sample Type CAPBL [facility] Glucose [Mass/Vol] 208 mg/dL High 70 - 179 mg/dL [facility] Interpretation and review of laboratory results Abnormal [facility] POC Sample Type CAPBL [facility] Glucose [Mass/Vol] 160 mg/dL 70 - 179 mg/dL [facility] POC Sample Type CAPBL [facility] Glucose [Mass/Vol] 107 mg/dL 70 - 179 mg/dL [facility] POC Sample Type CAPBL [facility] MAGNESIUMon 08-12-2024 Interpretation and review of laboratory results Normal [facility] Magnesium [Mass/Vol] 2.2 mg/dL 1.6 - 2 .6 mg/dL [facility] Magnesium [Mass/Vol] 2.2 mg/dL Normal 1.6-2.6 [facility] Comment on above: Performed By: #### T YPEC #### [facility] (DEFAULT) [address] [place] [address] No Panel Informationon 08-12 [facility] SURG PATH REQUESTOrdered By: Renae Glez on 08-12-2024 Case Report [facility] Clinical History [id number] NVx kdpEtACUvgRKeK7FuvwzyOU [id number] XCyQwMmq9cuz499aAWia9wk BSUZapbyjEv4sClcZ06aq0B 0CqznT5lzDACeOKteZHLgGZ sxqEOqBQr1CDVcjWVlvsIyJ yUcPRLrtHQozMT1QPSmQQ9x luolVIhrLKxoXMKfnpA6BCU yrDZuY6NcVUScDP0qssynOZ R5HXarCTGlKZI7VkRyTYYfj 6Gjjqq3PhWbxZa7z6pjQRWf SYQdxLkfj3cpWAQ7UHXwbVW qR2wtfD6nKDAhPL4glqzqq7 dqCKhmNKyiLKIavXF3jrK3R ULiiKFkE3HnhJ0iKSGcWNFk cvBxmEsbrY9mZuSiLBmqKhX qVv9JNYcRMpJbQHZqb2PqBN ZdKONPzUNrry8pvJU3GTASd 02vXcMzKPAlfHXyeHRYrCR9 t9K8HhFzOs7hsUOcjVTvoTS moWM1h1L8DIFxe4IeVKMuRe xwYXJ9 [facility] For Immediate Release to Patient's MyChart? Yes Yes [facility] Gross Description c4oamCYuKIFpc2llFMBn bGF uZzEwMzNcZnRuYmpcdWMxIH tccnRmMVxlcGljMTExMDVcY E9doUlxdLe2jTndZPCoxlL8 hCJhFPppn0gzOGS6z7rrjao uJHGfFItmGb8fcDZhdKkvXy TnWKEhOOe4oK46XGVvdG2zs QZfATtcsmJyDJGkP3CiIV1j PToqgEXhCVX6kSoiUIZnzey jPqS0MHbuAITpnsizEGk6OW dwKGIkdWC4YFSepTEkI7RlS MDlVW8mvab5DRC9AWlfIVQj ZpC7XOYxsKCrFTLdkRqbEYt zo745VCU3FnOnWXTnyuIkeP fjsW2aJgTtLBEDwURpz9DyZ 5ugWY5ccGOpffXbCIe5CVLt zT3hr58rYMDkw6Vtbwu8HSp wYnBnLPWwT07daEVbxcDnNV dpdGggdGhlIHBhdGllbnQnc vIbOO6ySMNkURVeZ0Dfn8Lr s15qhoNfXmRpYjVneIZuNMQ wfqduYhYlLShhDoHaMpr4FY IgVGhlIHNwZWNpbWVuIGlzI KZya6pqnqH9YBUeKumgm1Cd cSVyISOlfwWzyZPmBT1qAMH diqNkb5UcBR4sSRAfmyWmNy HwV09kfmSgEK4bGVEqrj1tx V6yTXIsOdLcdAjac0YsEHTh ox2fNGScWfV8yET6rlEgHcT uR09bdW1fB4QiFDMuo1EyAE qzCG0kpB7kPxJlWZPpVYJju AJtWVKyvlBRWXPzYLCtOC5j aPg2XFysYwmQIVopNoMoHBG 9GXMhjw29IKS7KoZow0T7RA ThXxStBMEdPR7wyMgwXBAoQ U0lAXTeF5nvrY4wift2VvXj LQFqFzL3IBUsfjD6Nex0LCW uTZnjn8hpg9WgGGUuUAu7pQ wcTkFvYUKqg5evmxYxZvEuL ANvKOOgJXEppQWuQ378i8pf f4lpilTmxAH6UHSiXZD9WCv lsvQegaL7VYkuzCTiMhB4CX ioxeWqYXwvxaTbmsDvUne0U ZHrK736WBA7pAner7zcALR5 XSQwFAWdWzRlIn9bxSZiG03 3NJLgMWRLZDXkoBf2WTOcgr DsldAkjOUNv136V993u6akK UHugiPbmEsJksbwp6ubT627 XHBhcGVydzEyMjQwXHBhcGV oiFB7XAKwIZ2lrrllVVydRX ypENSllmZ7QDMhlHBrX7ShS VQcAJ3xvxhgACB8XZtsDZHt JLC0XbLyHAAjx1Fjcex2RoW ocb2jbw93MGM8z0JhvWhkSV K8SXN9LxKbLa3nkBDqOMWmJ T8pQxTlpVTzEXEytt24wKnh YPcgimYtoO9uAhCoYEPzcBC fTIEqLV7cbLEbIFToxW9mjo xjXHBnYnJkcmhlYWRccGdic vFpYg0ptJquKEL8ZMffZ2ba dZ0ySrF4IEvzO9jmxI8uJTg 8QDwsqST8YGTqaZ5qGX2qke zbf1gqZFmxMFodGPJpcpZ8m eV0JJZslKGvH4LfeR7dNWCn MM3blqcyo5vuUDX3FYpyGKE hNIX1ZhHsZVXla5Zgevh7Fn Stm6HedYYlQPhiJ78vv702C LVmrxIpX3xddFOmsyqanHPp zkefQNatoxX1DYIcMPDlPQe uXGYxXGZzMjJcbGFuZzEwMz NcaGljaFxmMVxkYmNoXGYxX XvwR6opUyUnAaTrGpIZuo6t j6OcMOWnhzK3jKniTWUih8X dv6VxQaCBRNIhK8QyRT1hfG GgQKHevg47 [facility] Microscopic Description r6bveYHiJLFdlYDv ZjIyMDA pKSSvt2axPGTtpDLyBhWgOj NcZnRuYmpcdWMxXGRlZmYwe 5zfd804mYBun9wiUXAtBkK5 qZDaLUHiiGIgQ355YMRwAFp zs1tba6QbHXWtkTUqg6Q5WQ MKwiuuyUd4oOizL30eg7V2W rmuO6qjUSDzQZPuX8UgUN9e VMCpUfd8ICW0HZF9SDEnBFD vP1OrCV7vIKMczNRqRCr8t6 deqUdfBUXmWAP6r9irJUvdk eOsGW6bqz3scYx9f3luycJe UCNhMZRbpYRTJAPmQ2BicGp kGm3swCe7gEmxWvxtNNU5Un x8DS9rwl43vpk0sRtsOVXkq vyyDgS5HCtkCSTjrpkoEUh6 ZCetGKBkpFJ4DVIglJSyA5U lHTHrGL8iczd4BSN8HXkdEX FjWbY3BPNsrNJtHEOsoZpuF Bbiw198UKM9WrWfQZ7zA1Qf w9R6hJ4aySDxLUXhwSFxVsE tCXBdmr6xjGXxDYjlf7CqVP K1nkZ8gDLwpAVaTBNqCS78Y xvgf0PgNrpiDNL6FYAazrGr d3Gmb9lyIlRjxoXuO3hfE2O yZHJoZWFkXHBnYnJkcmZvb3 Myg5AvxUJolTq9i0ugAXWkP BPmxJdsw5ypDOG7KZLkP1A9 pDEfh9yaYCyfNDGqlXK7frD 3ABCxmCNsF1XjgR1yPFFmVX 4mihy5z1ptLQH1UCuvPRMcA cV6arO9TGNmfTOjMZAsvFnp ZTahc504KVP5CsDkRLBoi3Q nA6BfnEvnG48suQxoV38gBP HffVscyG8emArdkE5eQmJlT nMyNFxxbFxwbGFpblxmMVxm slUpIVbmbpkgDVAkTRsfA3t jClHrNMSygFrlQJydg3PjLN SaOOUiYkVlLEIsfTGyu9Qkz 4OtUlUdvSBegQ1ywSozrnK6 DWGanJZdAr2jcNQjHmYppWX yfQ== [facility] Pathologic Diagnosis d8svbOBwYXQncBZrCJA wNVx yshNgDESydKBfA0RpnxtwLP prBM9qIG8evEdzkJMftAKbY QXoVaTzl1omb434dOPii5ln VUCNiyseqEp1c9dwMDDQjK2 fe0q4kG66XFVqcJ1ijLLiHQ pgwdBpKEypbwShuqBwEtg8B JU0yCdmXtbynAM7oOVxzTS0 PEwsh0JhnRwwqDadCSQpLEF wJWK8A9aopIR2aSKcdGalsG GiKZ8wk7cuqEU7edTnRKF7g AetrDW1kXhmrmcmj6xmeRQ0 gBP6SJupfIH5XGgqRyKvB5g lLQZmsT0oI40iJ8lsJNLlwW swIYvyBZGttEW4PLO2UXNnq 1xsZXZlbHRleHRcJzAxXCdi Fxm5f2chYMRvbR71iHMiqgQ 7fVxmMVxmczIwXGxpMzYwXG ZpMTgwfXtcbGlzdGxldmVsX DhvuqBzzvFpEmAnnNJ2CQfe GnVyAuAxzNS7HFtsHqVibLP 6ABzklXJcgYS6IUtasLP0AI f2LWv8ZMjgNRooItd2iNjkg WV4UGvpeS3mADRlH56lMpJw GwHzHQ55WShkh9ErDTWcpNu cRDAomY2lGuXuBPdvitNyjq ZjbjIzXGxldmVsamMwXGxld mJpi1KslxOhuCZ2YIbdacTe oDS0wHvfKKOsJ1D8Q839GLf efzJmxqXgUnZawhw5FNAoMH TsMrA5o5kngQL5dWE6PIhzr KW5SEhhExZxU5dsCDRlnZ9e Y70vL9gvKZNkvDftGGwbJNM jwDF8GNS7BSEpf1iwZQQrcF ZiuHAfYmNjWKsmAaf1x5jvZ VMcaE29gKQfwfY8gNayPOgq czIwfXtcbGlzdGxldmVsXGx mmcZjpvFpCzFexRL1DHbaNq VgHsLvbMA0ZAyqFbXhsQJ9L HjodVQxyEX3EFbauVG2WCw9 JTs2OWlnFQsvSqu1gCnzjYY 5SIdmsD8uMFPsZ38jCcJjAi FrWZ51VZegi7BgULUzxVqgD AEoaR2bIyZaVYpfcmQpfrXh bjIzXGxldmVsamMwXGxldmV lf6LejuJniCY4YVtikcTsaX H3lPqmEUMgG7Y0A051SXsie lFkxsGuLaDfssv8EKOiGGGo AeH8j9epiQN7xPO3YGvtlEJ 3NRxtQcZbA5ttVJDelK9fF6 0rE6hjDBHsnWcsXRmsERQgp JM8PRZ9HAKwz1ynUSMlyGHf fHRxQyTvCKovTdp9k4waZTX utQ27oWJacvK9dMyxDUbjcx IwfXtcbGlzdGxldmVsXGxld uFsijMhWbSdcQO9VXwoFwOf YmHhaIN2IAsqMvSwmPG3BMp seJZqtJI0GQnluMD1LSo5SW z6CKtrWMeyTvg3sFbiaZK1D TvjwL3eAQKtB30cHhLxZnGp XW77JHqxw0FtPFAznZioFHT vyT3aGwTwWArgrqIwgkUker IzXGxldmVsamMwXGxldmVsc 1NawsRgsFU9KIjeasJwyMM6 iYhxILBgS0M5R739DLoeurX evkZhMxLtgev0VQZtYRMiXk I0yA74BKfssSusrE54HGXps LCbxZWkyTQ9YPtgiWpknV16 UCFewOUkXXjma6RyVNPjMcA 2OcTgLRWujToqcS58GRIonG PaC621ogFiRArwSY11TXWhy GVydzEyMjQwXHBhcGVyaDE1 FATkJY2cluavRGfbIGacISU ldlK5URLlbJIzM1KrXDOnDU 7agemqNAO7YCgsWFDuCCX5A eNoUGWkd5Cwwgj4FgPxrLLu BRewmAEewjqgFCCoXeAgW0B eVXGdPMM8h61cE4whHMNsd6 BzeTpccGFyXGxpMzYwXGZpM UpzGXxtgdB9RMebmlSfuKh0 yUMysHnuuN0sHcgyiuUnAED hIWPTo8LlxIOucp4kqS4pOR SjoxOYadPLCBhqF63wFVW0D XRqwMfpt7ZhFVdmGA33uSHe ZWRccGFyfQ== [facility] Professional Interpretation Performed at: x1vaiIZeELZizUZiStJwZIH tKIWru1mrPTVdhVGqMpLwAr NcZnRuYmpcdWMxXGRlZmYwe 3xiv847nQGwa8gdVFCbGvD8 oUCjOVCpnKGoQ517TTGgFJz ge1fgy4HrTONouZHyx0Q5PT KNtjwplUl6oRqmY67kk4U5Y ksfM9atLKLfUVBiM6MaWA7z KIDzIzc3TIW1ARB3UQBbFGB sC0RuRB0uRMNlvNTjPLo4s0 mqjVbbMHWwYKC4n7zlHCloi fDoJD7vse0cdEn8w2rdwsVs WYTjQSEyaNTNFFPjT7RovWa dBd9jeLs5oMeaNpirREJ2Tb y8QU4fwp58hdd3dYmuMPWub jzaPpU6HOrnIUYemeiiZMp1 XBxjBVYxbGI0IRLgkOObM3R iUGXlBV0ymnd6RDH5XBvtFF ZiPsF4IQKnfZZbKHNudVmeO Jjqn745PHO4MaHhDI3kJ8Ms n7V6hY0bsTXgZWChvHUkImS aUJUxyr4chEErUIzon1MbHV T2ucW3kZIgoIAbTPShOJ18L sptb1KiXgnjEXO8QZOzxnZa y4Kdd0edRqKqkdYcM5heI1L yZHJoZWFkXHBnYnJkcmZvb3 Uvw9OszTSrlAy2y8zbUQYlA WIkaTich8scKSS7NVTbE6O7 iBSce3tyAMrmECLlgLD1tcV 1BTBdeTWhI0FkfC0qRKIuST 8xmwk9w7cvTCD2KGpkVHJwI fD2lfN8KNEvvAFmBPQgtHpz LSxew866FCV1OqCaKMKzj1S xT5ErsTtaF15gdQglR16sTW QadVapfT5rlTszcH6dDlUqV nMyNFxwYXJkXHBsYWluXGYx XGZzMjJcbGFuZzEwMzNcaGl jaFxmMVxkYmNoXGYxXGxvY2 dcNwLqSkErOqXUB4EvQ0OZH eGRII1CZMySBAwdE8HZJQMD PGIYWV1SY8VUFZcDFp6CPSY BNrmqmAKsODJsPKOIJNG5AN AvaFqzXDBnDSGgpfUEn6j9i WM4xtjzL4rigeZ5DlMnXCif YXJ9 [facility] CBC,PLATELETSon 08-11-2024 Erythrocyte distribution width (RBC) [Ratio] 13.7 % 10.8 - 14.9 % [facility] Hematocrit (Bld) [Volume fraction] 43.2 % 34.9 - 44.3 % [facility] Hemoglobin (Bld) [Mass/Vol] 14 g/dL 11.4 - 15.2 g/dL [facility] Interpretation and review of laboratory results Abnormal [facility] MCH (RBC) [Entitic mass] 29.9 pg 25.9 - 33.9 pg [facility] MCHC (RBC) [Mass/Vol] 32.4 g/dL 31.4 - 35.9 g/dL [facility] MCV (RBC) [Entitic vol] 92.1 fL 79.6 - 97.7 fL [facility] Platelet mean volume (Bld) [Entitic vol] 11.5 fL 8.5 - 12.2 fL [facility] Platelets (Bld) [#/Vol] 240 10*3/uL 150 - 393 K/uL [facility] RBC (Bld) [#/Vol] 4.69 10*6/uL [facility] WBC (Bld) [#/Vol] 11.76 10*3/uL High 3.99 - 11.19 K/uL [facility] Hematocrit (Bld) [Volume fraction] 43.2 % Normal 34.9-44.3 [facility] Comment on above: Performed By: #### T YPEC #### [facility] (DEFAULT) [address] [address] Hemoglobin (Bld) [Mass/Vol] 14.0 g/dL Normal 11.4-15.2 [facility] Comment on above: Performed By: #### T YPEC #### [facility] (DEFAULT) [address] [address] MCV (RBC) [Entitic vol] 92.1 fL Normal 79.6-97.7 [facility] Comment on above: Performed By: #### T YPEC #### [facility] (DEFAULT) [address] [address] Mean Cell Hgb 29.9 pg Normal 25.9-33.9 [facility] Comment on above: Performed By: #### T YPEC #### [facility] (DEFAULT) [address] [address] Mean Cell Hgb Conc 32.4 g/dL Normal 31.4-35.9 [facility] Comment on above: Performed By: #### T YPEC #### [facility] (DEFAULT) [address] [address] Platelet mean volume (Bld) [Entitic vol] 11.5 fL Normal 8.5-12.2 [facility] Comment on above: Performed By: #### T YPEC #### [facility] (DEFAULT) [address] [address] Platelets (Bld) [#/Vol] 240 10*3/uL Normal 150-393 [facility] Comment on above: Performed By: #### T YPEC #### [facility] (DEFAULT) [address] [address] RBC (Bld) [#/Vol] 4.69 10*6/uL Normal 3.91-5.04 [facility] Comment on above: Performed By: #### T YPEC #### [facility] (DEFAULT) [address] [address] RBC Distribution 13.7 % Normal 10.8-14.9 [facility] Comment on above: Performed By: #### T YPEC #### [facility] (DEFAULT) [address] [address] WBC (Bld) [#/Vol] 11.76 10*3/uL High 3.99-11.19 [facility] Comment on above: Performed By: #### T YPEC #### [facility] (DEFAULT) [address] [place] [address] CHEM 7 (LYTES,BUN,CREA,GLUC) on 08-11-2024 Anion gap [Moles/Vol] 14 mmol/L 7 - 17 mmol/L [facility] Chloride [Moles/Vol] 103 mmol/L 98 - 10 8 mmol/L [facility] CO2 [Moles/Vol] 26 mmol/L 21 - 31 mmol/L [facility] Creatinine [Mass/Vol] 1.32 mg/dL High 0.50 - 1.20 mg/dL [facility] eGFR, CKD-EPI, Female 41 Low - PINF [facility] Glucose [Mass/Vol] 127 mg/dL 70 - 179 mg/dL [facility] Interpretation and review of laboratory results Abnormal [facility] Osmolality Calc [Osmolality] 306 High [facility] Potassium [Moles/Vol] 4.6 mmol/L 3.5 - 5.0 mmol/L [facility] Sodium [Moles/Vol] 138 mmol/L 135 - 145 mmol/L [facility] Urea nitrogen [Mass/Vol] 53 mg/dL High 7 - 25 mg/dL [facility] Urea nitrogen/Creatinine [Mass ratio] 40 mg/mg [facility] Anion gap [Moles/Vol] 14 mmol/L Normal 7-17 [facility] Comment on above: Performed By: #### H [facility] #### [facility] (DEFAULT) [address] [place] [address] Chloride [Moles/Vol] 103 mmol/L Normal 98-108 [facility] Comment on above: Performed By: #### H [facility] #### [facility] (DEFAULT) [address] [place] [address] CO2 [Moles/Vol] 26 mmol/L Normal 21-31 [facility] Comment on above: Performed By: #### H [facility] #### [facility] (DEFAULT) [address] [place] [address] Creatinine [Mass/Vol] 1.32 mg/dL High 0.50-1.20 [facility] Comment on above: Performed By: #### H [facility] #### [facility] (DEFAULT) [address] [address] GFR/1.73 sq M.predicted among non-blacks MDRD (S/P/Bld) [Vol rate/Area] 41 mL/min/{1.73_m2} Low >=60 [facility] Comment on above: Result Comment: Repo rted eGFR is based on the CKD-EPI 2020 equation using creatinine, age, and sex. Performed By: #### H [facility] #### [facility] (DEFAULT) [address] [address] Glucose [Mass/Vol] 127 mg/dL Normal Nonfastin -179 mg/dL; Fastin-99 [facility] Comment on above: Performed By: #### H EMO #### [facility] (DEFAULT) [address] [address] Osmolality [Osmolality] 306 mosm/kg High 278-305 [facility] Comment on above: Performed By: #### H EMO #### [facility] (DEFAULT) [address] [address] Potassium [Moles/Vol] 4.6 mmol/L Normal 3.5-5.0 [facility] Comment on above: Performed By: #### H EMO #### [facility] (DEFAULT) [address] [address] Sodium [Moles/Vol] 138 mmol/L Normal 135-145 [facility] Comment on above: Performed By: #### H EMOGC #### [facility] (DEFAULT) [address] [address] Urea nitrogen [Mass/Vol] 53 mg/dL High 7-25 [facility] Comment on above: Performed By: #### H EMOGC #### [facility] (DEFAULT) [address] [place] [address] Urea nitrogen/Creatinine [Mass ratio] 40 mg/mg Normal [facility] Comment on above: Performed By: #### H [facility] #### [facility] (DEFAULT) [address] [place] [address] GLUCOSE POCon 08-11-2024 Glucose [Mass/Vol] 213 mg/dL High 70 - 179 mg/dL [facility] Interpretation and review of laboratory results Abnormal [facility] POC Sample Type CAPBL [facility] Glucose [Mass/Vol] 255 mg/dL High 70 - 179 mg/dL [facility] Interpretation and review of laboratory results Abnormal [facility] POC Sample Type CAPBL [facility] Glucose [Mass/Vol] 190 mg/dL High 70 - 179 mg/dL [facility] Interpretation and review of laboratory results Abnormal [facility] POC Sample Type CAPBL [facility] Glucose [Mass/Vol] 205 mg/dL High 70 - 179 mg/dL [facility] Interpretation and review of laboratory results Abnormal [facility] POC Sample Type CAPBL [facility] MAGNESIUMon 08-11-2024 Interpretation and review of laboratory results Normal [facility] Magnesium [Mass/Vol] 1.9 mg/dL 1.6 - 2 .6 mg/dL [facility] Magnesium [Mass/Vol] 1.9 mg/dL Normal 1.6-2.6 [facility] Comment on above: Performed By: #### M [facility] #### [facility] (DEFAULT) [address] [place] [address] No Panel Informationon 08-11 [facility] BLOOD CULTUREon 08-10-2024 Bacteria identified Cx Nom (Unsp spec) NO GROWTH DAY 5 OF 5 Normal [facility] Comment on above: Order Comment: [...] bottle. Performed By: #### T YPEC #### [facility] (DEFAULT) [address] [address] Bacteria identified Cx Nom (Unsp spec) NO GROWTH DAY 5 OF 5 Normal [facility] Comment on above: Order Comment: [...] bottle. Performed By: #### B LDCULT #### [facility] (DEFAULT) [address] [address] CBC,PLATELETSon 08-10-2024 Erythrocyte distribution width (RBC) [Ratio] 13.3 % 10.8 - 14.9 % [facility] Hematocrit (Bld) [Volume fraction] 45.1 % High 34.9 - 44.3 % [facility] Hemoglobin (Bld) [Mass/Vol] 14.1 g/dL 11.4 - 15.2 g/dL [facility] Interpretation and review of laboratory results Abnormal [facility] MCH (RBC) [Entitic mass] 29.1 pg 25.9 - 33.9 pg [facility] MCHC (RBC) [Mass/Vol] 31.3 g/dL Low 31.4 - 35.9 g/dL [facility] MCV (RBC) [Entitic vol] 93 fL 79.6 - 97.7 fL [facility] Platelet mean volume (Bld) [Entitic vol] 11.4 fL 8.5 - 12.2 fL [facility] Platelets (Bld) [#/Vol] 216 10*3/uL 150 - 393 K/uL [facility] RBC (Bld) [#/Vol] 4.85 10*6/uL [facility] WBC (Bld) [#/Vol] 13.78 10*3/uL High 3.99 - 11.19 K/uL [facility] Hematocrit (Bld) [Volume fraction] 45.1 % High 34.9-44.3 [facility] Comment on above: Performed By: #### H [facility] #### [facility] (DEFAULT) [address] [address] Hemoglobin (Bld) [Mass/Vol] 14.1 g/dL Normal 11.4-15.2 [facility] Comment on above: Performed By: #### H EMO #### [facility] (DEFAULT) [address] [address] MCV (RBC) [Entitic vol] 93.0 fL Normal 79.6-97.7 O [facility] Comment on above: Performed By: #### H EMO #### [facility] (DEFAULT) [address] [address] Mean Cell Hgb 29.1 pg Normal 25.9-33.9 [facility] Comment on above: Performed By: #### H EMO #### [facility] (DEFAULT) [address] [address] Mean Cell Hgb Conc 31.3 g/dL Low 31.4-35.9 [facility] Comment on above: Performed By: #### H EMOGC #### [facility] (DEFAULT) [address] [address] Platelet mean volume (Bld) [Entitic vol] 11.4 fL Normal 8.5-12.2 [facility] Comment on above: Performed By: #### H EMOGC #### [facility] (DEFAULT) [address] [place] [address] Platelets (Bld) [#/Vol] 216 10*3/uL Normal 150-393 [facility] Comment on above: Performed By: #### H EMOGC #### [facility] (DEFAULT) [address] [place] [address] RBC (Bld) [#/Vol] 4.85 10*6/uL Normal 3.91-5.04 [facility] Comment on above: Performed By: #### H EMOGC #### [facility] (DEFAULT) [address] [place] [address] RBC Distribution 13.3 % Normal 10.8-14.9 [facility] Comment on above: Performed By: #### H EMOGC #### [facility] (DEFAULT) [address] [place] [address] WBC (Bld) [#/Vol] 13.78 10*3/uL High 3.99-11.19 [facility] Comment on above: Performed By: #### H [facility] #### [facility] (DEFAULT) [address] [place] [address] CHEM 7 (LYTES,BUN,CREA,GLUC) on 08-10-2024 Anion gap [Moles/Vol] 16 mmol/L 7 - 17 mmol/L [facility] Chloride [Moles/Vol] 103 mmol/L 98 - 10 8 mmol/L [facility] CO2 [Moles/Vol] 24 mmol/L 21 - 31 mmol/L [facility] Creatinine [Mass/Vol] 1.36 mg/dL High 0.50 - 1.20 mg/dL [facility] eGFR, CKD-EPI, Female 40 Low - PINF [facility] Glucose [Mass/Vol] 186 mg/dL High 70 - 179 mg/dL [facility] Interpretation and review of laboratory results Abnormal [facility] Osmolality Calc [Osmolality] 308 High [facility] Potassium [Moles/Vol] 4.9 mmol/L 3.5 - 5.0 mmol/L [facility] Sodium [Moles/Vol] 138 mmol/L 135 - 145 mmol/L [facility] Urea nitrogen [Mass/Vol] 47 mg/dL High 7 - 25 mg/dL [facility] Urea nitrogen/Creatinine [Mass ratio] 35 mg/mg [facility] Anion gap [Moles/Vol] 16 mmol/L Normal 7-17 [facility] Comment on above: Performed By: #### Jaiden NGUYEN CHM7 ####[facility] (DEFAULT)[address] [facility] [place] [address] Chloride [Moles/Vol] 103 mmol/L Normal 98-108 [facility] Comment on above: Performed By: #### Jaiden NGUYEN CHM7 ####[facility] (DEFAULT)[address] [place] [address] CO2 [Moles/Vol] 24 mmol/L Normal 21-31 [facility] Comment on above: Performed By: #### Jaiden NGUYEN CHM7 ####[facility] (DEFAULT)[address] [facility] [place] [address] Creatinine [Mass/Vol] 1.36 mg/dL High 0.50-1.20 [facility] Comment on above: Performed By: #### Jaiden NGUYEN CHM7 ####[facility] (DEFAULT)[address] [place] [address] GFR/1.73 sq M.predicted among non-blacks MDRD (S/P/Bld) [Vol rate/Area] 40 mL/min/{1.73_m2} Low >=60 [facility] Comment on above: Result Comment: Repo rted eGFR is based on the CKD-EPI 2020 equation using creatinine, age, and sex. Performed By: #### Jaiden NGUYEN CHM7 ####[facility] (DEFAULT)[address] [facility] [place] [address] Glucose [Mass/Vol] 186 mg/dL High Nonfastin -179 mg/dL; Fastin-99 [facility] Comment on above: Performed By: #### HEYDI PALACIOS7 ####[facility] (DEFAULT)[address] [place] [address] Osmolality [Osmolality] 308 mosm/kg High 278-305 [facility] Comment on above: Performed By: #### HEYDI PALACIOS7 ####[facility] (DEFAULT)[address] [place] [address] Potassium [Moles/Vol] 4.9 mmol/L Normal 3.5-5.0 [facility] Comment on above: Performed By: #### HEYDI PALACIOS7 ####[facility] (DEFAULT)[address] [place] [address] Sodium [Moles/Vol] 138 mmol/L Normal 135-145 [facility] Comment on above: Performed By: #### HEYDI PALACIOS7 ####[facility] (DEFAULT)[address] [place] [address] Urea nitrogen [Mass/Vol] 47 mg/dL High 7-25 [facility] Comment on above: Performed By: #### Jaiden NGUYEN CHM7 ####[facility] (DEFAULT)[address] [facility] [place] [address] Urea nitrogen/Creatinine [Mass ratio] 35 mg/mg Normal [facility] Comment on above: Performed By: #### Jaiden NGUYEN CHM7 ####[facility] (DEFAULT)[address] [place] [address] GLUCOSE POCon 08-10-2024 Glucose [Mass/Vol] 144 mg/dL 70 - 179 mg/dL [facility] POC Sample Type CAPBL [facility] Glucose [Mass/Vol] 177 mg/dL 70 - 179 mg/dL [facility] [Mass/Vol] 180 mg/dL High 70 - 179 mg/dL [facility] Interpretation and review of laboratory results Abnormal [facility] POC Sample Type [facility] Glucose [Mass/Vol] 193 mg/dL High 70 - 179 mg/dL [facility] Interpretation and review of laboratory results Abnormal [facility] [Mass/Vol] 200 mg/dL High 70 - 179 mg/dL [facility] Interpretation and review of laboratory results Abnormal [facility] Glucose [Mass/Vol] 198 mg/dL High 70 - 179 mg/dL [facility] Interpretation and review of laboratory results Abnormal [facility] MAGNESIUMon 08-10-2024 Interpretation and review of laboratory results Normal [facility] Magnesium [Mass/Vol] 1.8 mg/dL 1.6 - 2 .6 mg/dL [facility] Magnesium [Mass/Vol] 1.8 mg/dL Normal 1.6-2.6 [facility] Comment on above: Performed By: #### M , [facility] ####[facility] (DEFAULT)[address] [place] [address] No Panel Informationon 08-10 [facility] URINE CULTUREOrdered By: Franklin Carcamo on 08-10-2024 Bacteria identified Cx Nom (Unsp spec) Growth [facility] Bacteria identified Cx Nom (Unsp spec) KLEBSIELLA PNEUMONIAE Abnormal [facility] Interpretation and review of laboratory results Abnormal [facility] CBC,PLATELETSon 08-09-2024 Erythrocyte distribution width (RBC) [Ratio] 13.5 % 10.8 - 14.9 % [facility] Hematocrit (Bld) [Volume fraction] 44.4 % High 34.9 - 44.3 % [facility] Hemoglobin (Bld) [Mass/Vol] 14.1 g/dL 11.4 - 15.2 g/dL [facility] Interpretation and review of laboratory results Abnormal [facility] MCH (RBC) [Entitic mass] 29.4 pg 25.9 - 33.9 pg [facility] MCHC (RBC) [Mass/Vol] 31.8 g/dL 31.4 - 35.9 g/dL [facility] MCV (RBC) [Entitic vol] 92.7 fL 79.6 - 97.7 fL [facility] Platelet mean volume (Bld) [Entitic vol] 11.5 fL 8.5 - 12.2 fL [facility] Platelets (Bld) [#/Vol] 226 10*3/uL 150 - 393 K/uL [facility] RBC (Bld) [#/Vol] 4.79 10*6/uL [facility] WBC (Bld) [#/Vol] 12.37 10*3/uL High 3.99 - 11.19 K/uL [facility] Hematocrit (Bld) [Volume fraction] 44.4 % High 34.9-44.3 [facility] Comment on above: Performed By: #### H [facility] #### [facility] (DEFAULT) [address] [address] Hemoglobin (Bld) [Mass/Vol] 14.1 g/dL Normal 11.4-15.2 [facility] Comment on above: Performed By: #### H [facility] #### [facility] (DEFAULT) [address] [place] [address] MCV (RBC) [Entitic vol] 92.7 fL Normal 79.6-97.7 [facility] Comment on above: Performed By: #### H EMOGC #### [facility] (DEFAULT) [address] [address] Mean Cell Hgb 29.4 pg Normal 25.9-33.9 [facility] Comment on above: Performed By: #### H EMOGC #### [facility] (DEFAULT) [address] [address] Mean Cell Hgb Conc 31.8 g/dL Normal 31.4-35.9 [facility] Comment on above: Performed By: #### H EMOGC #### [facility] (DEFAULT) [address] [address] Platelet mean volume (Bld) [Entitic vol] 11.5 fL Normal 8.5-12.2 [facility] Comment on above: Performed By: #### H EMOGC #### [facility] (DEFAULT) [address] [address] Platelets (Bld) [#/Vol] 226 10*3/uL Normal 150-393 [facility] Comment on above: Performed By: #### H EMOGC #### [facility] (DEFAULT) [address] [address] RBC (Bld) [#/Vol] 4.79 10*6/uL Normal 3.91-5.04 [facility] Comment on above: Performed By: #### H EMOGC #### [facility] (DEFAULT) [address] [address] RBC Distribution 13.5 % Normal 10.8-14.9 [facility] Comment on above: Performed By: #### H EMOGC #### [facility] (DEFAULT) [address] [address] WBC (Bld) [#/Vol] 12.37 10*3/uL High 3.99-11.19 [facility] Comment on above: Performed By: #### H EMOGC #### [facility] (DEFAULT) [address] [place] [address] CHEM 7 (LYTES,BUN,CREA,GLUC) on 08-09-2024 Anion gap [Moles/Vol] 14 mmol/L 7 - 17 mmol/L [facility] Chloride [Moles/Vol] 103 mmol/L 98 - 10 8 mmol/L [facility] CO2 [Moles/Vol] 26 mmol/L 21 - 31 mmol/L [facility] Creatinine [Mass/Vol] 1.35 mg/dL High 0.50 - 1.20 mg/dL [facility] eGFR, CKD-EPI, Female 40 Low - PINF [facility] Glucose [Mass/Vol] 182 mg/dL High 70 - 179 mg/dL [facility] Interpretation and review of laboratory results Abnormal [facility] Osmolality Calc [Osmolality] 305 [facility] Potassium [Moles/Vol] 4.9 mmol/L 3.5 - 5.0 mmol/L [facility] Sodium [Moles/Vol] 138 mmol/L 135 - 145 mmol/L [facility] Urea nitrogen [Mass/Vol] 38 mg/dL High 7 - 25 mg/dL [facility] Urea nitrogen/Creatinine [Mass ratio] 28 mg/mg [facility] Anion gap [Moles/Vol] 14 mmol/L Normal 7-17 [facility] Comment on above: Performed By: #### H [facility] #### [facility] (DEFAULT) [address] [place] [address] Chloride [Moles/Vol] 103 mmol/L Normal 98-108 [facility] Comment on above: Performed By: #### H [facility] #### [facility] (DEFAULT) [address] [place] [address] CO2 [Moles/Vol] 26 mmol/L Normal 21-31 [facility] Comment on above: Performed By: #### H [facility] #### [facility] (DEFAULT) [address] [place] [address] Creatinine [Mass/Vol] 1.35 mg/dL High 0.50-1.20 [facility] Comment on above: Performed By: #### H [facility] #### [facility] (DEFAULT) [address] [address] GFR/1.73 sq M.predicted among non-blacks MDRD (S/P/Bld) [Vol rate/Area] 40 mL/min/{1.73_m2} Low >=60 [facility] Comment on above: Result Comment: Repo rted eGFR is based on the CKD-EPI 2020 equation using creatinine, age, and sex. Performed By: #### H [facility] #### [facility] (DEFAULT) [address] [address] Glucose [Mass/Vol] 182 mg/dL High Nonfastin -179 mg/dL; Fastin-99 [facility] Comment on above: Performed By: #### H EMO #### [facility] (DEFAULT) [address] [address] Osmolality [Osmolality] 305 mosm/kg Normal 278-305 [facility] Comment on above: Performed By: #### H EMO #### [facility] (DEFAULT) [address] [address] Potassium [Moles/Vol] 4.9 mmol/L Normal 3.5-5.0 [facility] Comment on above: Performed By: #### H [facility] #### [facility] (DEFAULT) [address] [address] Sodium [Moles/Vol] 138 mmol/L Normal 135-145 [facility] Comment on above: Performed By: #### H EMOGC #### [facility] (DEFAULT) [address] [address] Urea nitrogen [Mass/Vol] 38 mg/dL High 7-25 [facility] Comment on above: Performed By: #### H EMO #### [facility] (DEFAULT) [address] [place] [address] Urea nitrogen/Creatinine [Mass ratio] 28 mg/mg Normal [facility] Comment on above: Performed By: #### H [facility] #### [facility] (DEFAULT) [address] [place] [address] EXTRA MICROon 08-09-2024 [facility] POCon 08-09-2024 Glucose [Mass/Vol] 186 mg/dL High 70 - 179 mg/dL [facility] Interpretation and review of laboratory results Abnormal [facility] POC Sample Type CAPBL [facility] Glucose [Mass/Vol] 255 mg/dL High 70 - 179 mg/dL [facility] Interpretation and review of laboratory results Abnormal [facility] POC Sample Type CAPBL [facility] Glucose [Mass/Vol] 235 mg/dL High 70 - 179 mg/dL [facility] Interpretation and review of laboratory results Abnormal [facility] POC Sample Type CAPBL [facility] Glucose [Mass/Vol] 167 mg/dL 70 - 179 mg/dL [facility] POC Sample Type CAPBL [facility] INTERVENTIONAL UPPER ENDOSCO PYon 08-09-2024 Body surface area Derived from formula 1.9 m2 [facility]narrative[facility] MAGNESIUMon 08-09-2024 Interpretation and review of laboratory results Normal [facility] Magnesium [Mass/Vol] 1.8 mg/dL 1.6 - 2 .6 mg/dL [facility] Magnesium [Mass/Vol] 1.8 mg/dL Normal 1.6-2.6 [facility] Comment on above: Performed By: #### H [facility] #### [facility] (DEFAULT) [address] [place] [address] No Panel Informationon 08-09 [facility] PT,INR,PTTon 08-09-2024 aPTT Coag (PPP) [Time] 38.4 s High [facility] INR Coag (Bld) [Relative time] 1 {INR} 0.9 - 1.1 [facility] Interpretation and review of laboratory results Abnormal [facility] PT Coag (PPP) [Time] 13 s [facility] aPTT Coag (Bld) [Time] 38.4 s High 24.0-34.3 [facility] Comment on above: Performed By: #### B LDCULT #### [facility] (DEFAULT) [address] [place] [address] INR Coag (PPP) [Relative time] 1.0 {INR} Normal 0.9-1.1 [facility] Comment on above: Performed By: #### B LDCULT #### [facility] (DEFAULT) [address] [place] [address] PT Coag (PPP) [Time] 13.0 s Normal 11.9-14.2 [facility] Comment on above: Performed By: #### B LDCULT #### [facility] (DEFAULT) [address] [place] [address] SURG PATH REQUESTon 08-10-19 Case Report [facility] Comment on above: Result Comment: Surg ical Pathology Report Case: [id number] Authorizing Provider: Judson Keith DO Collected: 08/09/2024 10:07 AM Ordering Location: [facility] Received: 08/09/2024 12:13 PM Pathologist: Renae Glez MD Specimen: STOMACH, gastric, r/o HP Performed By: #### S URGP #### [facility] (DEFAULT) [address] [address] Clinical History R/O HP. Associated Diagnosis: None. Medical History: No medical history provided. Normal [facility] Comment on above: Performed By: #### S URGP #### [facility] (DEFAULT) [address] [place] [address] Gross Description [facility] Comment on above: Result Comment: The specimen is received in one properly labeled container with the patient's name and accession number. A. The specimen is designated "gastric, r/o hp" and consists of five fragments of jackson-pink soft tissue, from 0.2 up to 0.6 cm in greatest dimension. TE 1 Lab Use Only: JobID [id number] Grosser for this case was: Sunshine Hidalgo Performed By: #### S URGP #### [facility] (DEFAULT) [address] [place] [address] Microscopic Description A microscopic examination was performed. [facility] Comment on above: Performed By: #### S URGP #### [facility] (DEFAULT) [address] [address] Pathologic Diagnosis [facility] Comment on above: Result Comment: Anjelica echols, biopsy: Focal erosion No Helicobacter pylori identified at 1005 EDT Performed By: #### S URGP #### [facility] (DEFAULT) [address] [address] Professional Interpretation Performed at: [facility] Comment on above: Result Comment: [facility] For Immediate Release [facility] Yes [address] [address] Performed By: #### S URGP #### [facility] (DEFAULT) [address] [address] CBC,PLATELETSon 08-08-2024 Erythrocyte distribution width (RBC) [Ratio] 13.6 % 10.8 - 14.9 % [facility] Hematocrit (Bld) [Volume fraction] 45.7 % High 34.9 - 44.3 % [facility] Hemoglobin (Bld) [Mass/Vol] 14.4 g/dL 11.4 - 15.2 g/dL [facility] Interpretation and review of laboratory results Abnormal [facility] MCH (RBC) [Entitic mass] 29.4 pg 25.9 - 33.9 pg [facility] MCHC (RBC) [Mass/Vol] 31.5 g/dL 31.4 - 35.9 g/dL [facility] MCV (RBC) [Entitic vol] 93.3 fL 79.6 - 97.7 fL [facility] Platelet mean volume (Bld) [Entitic vol] 10.9 fL 8.5 - 12.2 fL [facility] Platelets (Bld) [#/Vol] 212 10*3/uL 150 - 393 K/uL [facility] RBC (Bld) [#/Vol] 4.9 10*6/uL [facility] WBC (Bld) [#/Vol] 10.39 10*3/uL 3.99 - 11.19 K/uL [facility] Hematocrit (Bld) [Volume fraction] 45.7 % High 34.9-44.3 [facility] Comment on above: Performed By: #### H [facility] #### [facility] (DEFAULT) [address] [address] Hemoglobin (Bld) [Mass/Vol] 14.4 g/dL Normal 11.4-15.2 [facility] Comment on above: Performed By: #### H [facility] #### [facility] (DEFAULT) [address] [place] [address] MCV (RBC) [Entitic vol] 93.3 fL Normal 79.6-97.7 O [facility] Comment on above: Performed By: #### H [facility] #### [facility] (DEFAULT) [address] [place] [address] Mean Cell Hgb 29.4 pg Normal 25.9-33.9 [facility] Comment on above: Performed By: #### H [facility] #### [facility] (DEFAULT) [address] [place] [address] Mean Cell Hgb Conc 31.5 g/dL Normal 31.4-35.9 [facility] Comment on above: Performed By: #### H EMOGC #### [facility] (DEFAULT) [address] [place] [address] Platelet mean volume (Bld) [Entitic vol] 10.9 fL Normal 8.5-12.2 [facility] Comment on above: Performed By: #### H EMOGC #### [facility] (DEFAULT) [address] [place] [address] Platelets (Bld) [#/Vol] 212 10*3/uL Normal 150-393 [facility] Comment on above: Performed By: #### H EMOGC #### [facility] (DEFAULT) [address] [place] [address] RBC (Bld) [#/Vol] 4.90 10*6/uL Normal 3.91-5.04 [facility] Comment on above: Performed By: #### H EMOGC #### [facility] (DEFAULT) [address] [place] [address] RBC Distribution 13.6 % Normal 10.8-14.9 [facility] Comment on above: Performed By: #### H EMOGC #### [facility] (DEFAULT) [address] [place] [address] WBC (Bld) [#/Vol] 10.39 10*3/uL Normal 3.99-11.19 [facility] Comment on above: Performed By: #### H EMOGC #### [facility] (DEFAULT) [address] [place] [address] CHEM 7 (LYTES,BUN,CREA,GLUC) on 08-08-2024 Anion gap [Moles/Vol] 15 mmol/L 7 - 17 mmol/L [facility] Chloride [Moles/Vol] 104 mmol/L 98 - 10 8 mmol/L [facility] CO2 [Moles/Vol] 25 mmol/L 21 - 31 mmol/L [facility] Creatinine [Mass/Vol] 1.15 mg/dL 0.50 - 1.20 mg/dL [facility] eGFR, CKD-EPI, Female 48 Low - PINF [facility] Glucose [Mass/Vol] 111 mg/dL 70 - 179 mg/dL [facility] Interpretation and review of laboratory results Abnormal [facility] Osmolality Calc [Osmolality] 302 [facility] Potassium [Moles/Vol] 4.3 mmol/L 3.5 - 5.0 mmol/L [facility] Sodium [Moles/Vol] 140 mmol/L 135 - 145 mmol/L [facility] Urea nitrogen [Mass/Vol] 35 mg/dL High 7 - 25 mg/dL [facility] Urea nitrogen/Creatinine [Mass ratio] 30 mg/mg [facility] Anion gap [Moles/Vol] 15 mmol/L Normal 7-17 [facility] Comment on above: Performed By: #### Jaiden NGUYEN CHM7 ####[facility] (DEFAULT)[address] [place] [address] Chloride [Moles/Vol] 104 mmol/L Normal 98-108 [facility] Comment on above: Performed By: #### Jaiden NGUYEN CHM7 ####[facility] (DEFAULT)[address] [place] [address] CO2 [Moles/Vol] 25 mmol/L Normal 21-31 [facility] Comment on above: Performed By: #### Jaiden NGUYEN CHM7 ####[facility] (DEFAULT)[address] [place] [address] Creatinine [Mass/Vol] 1.15 mg/dL Normal 0.50-1.20 [facility] Comment on above: Performed By: #### Jaiden NGUYEN CHM7 ####[facility] (DEFAULT)[address] [place] [address] GFR/1.73 sq M.predicted among non-blacks MDRD (S/P/Bld) [Vol rate/Area] 48 mL/min/{1.73_m2} Low >=60 [facility] Comment on above: Result Comment: Repo rted eGFR is based on the CKD-EPI 2020 equation using creatinine, age, and sex. Performed By: #### HEYDI PALACIOS7 ####[facility] (DEFAULT)[address] [place] [address] Glucose [Mass/Vol] 111 mg/dL Normal Nonfastin -179 mg/dL; Fastin-99 [facility] Comment on above: Performed By: #### HEYDI PALACIOS7 ####[facility] (DEFAULT)[address] [place] [address] Osmolality [Osmolality] 302 mosm/kg Normal 278-305 [facility] Comment on above: Performed By: #### CAMERON PALACIOS ####[facility] (DEFAULT)[address] [place] [address] Potassium [Moles/Vol] 4.3 mmol/L Normal 3.5-5.0 [facility] Comment on above: Performed By: #### HEYDI PALACIOS7 ####[facility] (DEFAULT)[address] [place] [address] Sodium [Moles/Vol] 140 mmol/L Normal 135-145 [facility] Comment on above: Performed By: #### HEYDI PALACIOS7 ####[facility] (DEFAULT)[address] [place] [address] Urea nitrogen [Mass/Vol] 35 mg/dL High 7-25 [facility] Comment on above: Performed By: #### HEYDI PALACIOS7 ####[facility] (DEFAULT)[address] [place] [address] Urea nitrogen/Creatinine [Mass ratio] 30 mg/mg Normal [facility] Comment on above: Performed By: #### M CHM7 ####[facility] (DEFAULT)[address] [place] [address] CT HEAD WITHOUT CONTRASTon 0 08-08-2024 CT [...] have reviewed and approved this report. Normal [facility] CT Head WO contraston 2024 [facility] (narrative) [facility] GLUCOSE POCon 08-08-2024 Glucose [Mass/Vol] 150 mg/dL 70 - 179 mg/dL [facility] POC Sample Type [facility] Glucose [Mass/Vol] 148 mg/dL 70 - 179 mg/dL [facility] POC [facility] Glucose [Mass/Vol] 192 mg/dL High 70 - 179 mg/dL [facility] Interpretation and review of laboratory results Abnormal [facility] POC Sample Type [facility] Glucose [Mass/Vol] 198 mg/dL High 70 - 179 mg/dL [facility] Interpretation and review of laboratory results Abnormal [facility] POC Sample Type [facility] Glucose [Mass/Vol] 186 mg/dL High 70 - 179 mg/dL [facility] Interpretation and review of laboratory results Abnormal [facility] POC Sample Type CAPBL [facility] 08-08-2024 Interpretation and review of laboratory results Normal [facility] Magnesium [Mass/Vol] 1.7 mg/dL 1.6 - 2 .6 mg/dL [facility] Magnesium [Mass/Vol] 1.7 mg/dL Normal 1.6-2.6 [facility] Comment on above: Performed By: #### M [facility] ####[facility] (DEFAULT)[address] [place] [address] No Panel Informationon 08-08 [facility] URINALYSIS REFLEX TO CULTURE PERFORMABLEOrdered By: Danya Yates on 08-08-2024 Appearance (U) Cloudy Abnormal Clear [facility] Bacteria LM Ql (Urine sed) PRESENT Abnormal ABSENT [facility] Color (U) Yellow Yellow [facility] Epithelial cells.squamous LM Ql (Urine sed) 0-2/hpf 0-2/hpf, 3-5/hpf = 1+ [facility] Glucose Test strip (U) [Mass/Vol] Negative Negative [facility] Interpretation and review of laboratory results Abnormal [facility] Ketones (U) [Mass/Vol] Trace Abnormal Negative OS [facility] Leukocyte esterase Test strip Ql (U) Large Abnormal Negative [facility] Nitrite Ql (U) Positive Abnormal Negative [facility] pH (U) 7.0 [pH] 5.0 - 7.0 [facility] Protein (U) [Mass/Vol] Trace Abnormal Negative OS [facility] RBC (U) [#/Vol] Trace Abnormal Negative [facility] RBC LM.HPF (Urine sed) [#/Area] 6-10 Abnormal [facility] Specific gravity (U) [Rel density] 1.023 1.001 - 1.035 [facility] Urobilinogen (U) [Mass/Vol] 1.0 E.U./dL 0.2 E.U/dL, 1.0 E.U/dL [facility] WBC LM.HPF (Urine sed) [#/Area] /[HPF] [facility] URINALYSIS REFLEX TO CULTURE PERFORMABLEon 08-08-2024 Appearance (U) Cloudy Abnormal Clear [facility] Comment on above: Order Comment: For i ndwelling catheters, specimen collection is acceptable on catheter day 1 and 2 only. ? Performed By: #### T YPEC #### [facility] (DEFAULT) [address] [address] Bacteria PRESENT Abnormal ABSENT [facility] Comment on above: Order Comment: For i ndwelling catheters, specimen collection is acceptable on catheter day 1 and 2 only. ? Performed By: #### T YPEC #### [facility] (DEFAULT) [address] [address] Blood Urine Trace Abnormal Negative [facility] Comment on above: Order Comment: For i ndwelling catheters, specimen collection is acceptable on catheter day 1 and 2 only. ? Performed By: #### T YPEC #### [facility] (DEFAULT) [address] [place] [address] Color (U) Yellow Normal Yellow [facility] Comment on above: Order Comment: For i ndwelling catheters, specimen collection is acceptable on catheter day 1 and 2 only. ? Performed By: #### T YPEC #### [facility] (DEFAULT) [address] [place] [address] Glucose Ql (U) Negative Normal Negative [facility] Comment on above: Order Comment: For i ndwelling catheters, specimen collection is acceptable on catheter day 1 and 2 only. ? Performed By: #### T YPEC #### [facility] (DEFAULT) [address] [place] [address] Ketones Ql (U) Trace Abnormal Negative [facility] Comment on above: Order Comment: For i ndwelling catheters, specimen collection is acceptable on catheter day 1 and 2 only. ? Performed By: #### T YPEC #### [facility] (DEFAULT) [address] [place] [id number] Leukocyte esterase Test strip Ql (U) Large Abnormal Negative [facility] Comment on above: Order Comment: For i ndwelling catheters, specimen collection is acceptable on catheter day 1 and 2 only. ? Performed By: #### T YPEC #### [facility] (DEFAULT) [address] [place] [address] Nitrites Urine Positive Abnormal Negative [facility] Comment on above: Order Comment: For i ndwelling catheters, specimen collection is acceptable on catheter day 1 and 2 only. ? Performed By: #### T YPEC #### [facility] (DEFAULT) [address] [place] [address] pH (U) 7.0 [pH] Normal 5.0-7.0 [facility] Comment on above: Order Comment: For i ndwelling catheters, specimen collection is acceptable on catheter day 1 and 2 only. ? Performed By: #### T YPEC #### [facility] (DEFAULT) [address] [place] [address] Protein Urine Trace Abnormal Negative [facility] Comment on above: Order Comment: For i ndwelling catheters, specimen collection is acceptable on catheter day 1 and 2 only. ? Performed By: #### T YPEC #### [facility] (DEFAULT) [address] [address] RBC Urine 6-10 Abnormal 0-2 [facility] Comment on above: Order Comment: For i ndwelling catheters, specimen collection is acceptable on catheter day 1 and 2 only. ? Performed By: #### T YPEC #### [facility] (DEFAULT) [address] [address] Specific [place] Urine 1.023 Normal 1.001-1.035 O [facility] Comment on above: Order Comment: For i ndwelling catheters, specimen collection is acceptable on catheter day 1 and 2 only. ? Performed By: #### T YPEC #### [facility] (DEFAULT) [address] [address] Squamous/Epithelial Cells, Urine 0-2/hpf Normal 0-2/hpf, 3-5/hpf = 1+ [facility] Comment on above: Order Comment: For i ndwelling catheters, specimen collection is acceptable on catheter day 1 and 2 only. ? Performed By: #### T YPEC #### [facility] (DEFAULT) [address] [address] Urobilinogen Urine 1.0 E.U./dL Normal 0.2 E.U/d L, 1.0 E.U/dL [facility] Comment on above: Order Comment: For i ndwelling catheters, specimen collection is acceptable on catheter day 1 and 2 only. ? Performed By: #### T YPEC #### [facility] (DEFAULT) [address] [address] WBC LM.HPF (Urine sed) [#/Area] /[HPF] Abnormal 0 - 5 [facility] Comment on above: Order Comment: For i ndwelling catheters, specimen collection is acceptable on catheter day 1 and 2 only. ? Performed By: #### T YPEC #### [facility] (DEFAULT) [address] [address] URINE CULTUREon 08-08-2024 Amikacin [Susceptibility] <= Invalid Interpretation Code [facility] Comment on above: Order Comment: [...] ? Performed By: #### T YPEC #### [facility] (DEFAULT) [address] [place] [address] Ampicillin [Susceptibility] >=32 Resistant [facility] Comment on above: Order Comment: [...] ? Performed By: #### T YPEC #### [facility] (DEFAULT) [address] [place] [address] Ampicillin+Sulbactam [Susceptibility] >=32 Resistant [facility] Comment on above: Order Comment: [...] ? Performed By: #### T YPEC #### [facility] (DEFAULT) [address] [place] [address] ceFAZolin [Susceptibility] >= Resistant [facility] Comment on above: Order Comment: [...] Performed By: #### T YPEC #### [facility] (DEFAULT) [address] [address] Cefepime [Susceptibility] <= Invalid Interpretation Code [facility] Comment on above: Order Comment: [...] Performed By: #### T YPEC #### [facility] (DEFAULT) [address] [address] cefTRIAXone [Susceptibility] <= Invalid Interpretation Code [facility] Comment on above: Order Comment: [...] Performed By: #### T YPEC #### [facility] (DEFAULT) [address] [address] Ciprofloxacin [Susceptibility] >= Resistant [facility] Comment on above: Order Comment: [...] ? Performed By: #### T YPEC #### [facility] (DEFAULT) [address] [address] Ertapenem [Susceptibility] <= Invalid Interpretation Code [facility] Comment on above: Order Comment: [...] Performed By: #### T YPEC #### [facility] (DEFAULT) [address] [address] Gentamicin [Susceptibility] <= Invalid Interpretation Code [facility] Comment on above: Order Comment: [...] ? Performed By: #### T YPEC #### [facility] (DEFAULT) [address] [address] levoFLOXacin [Susceptibility] >= Resistant [facility] Comment on above: Order Comment: [...] Performed By: #### T YPEC #### [facility] (DEFAULT) [address] [address] Nitrofurantoin [Susceptibility] 128 ug/mL Resistant [facility] Comment on above: Order Comment: [...] Performed By: #### T YPEC #### [facility] (DEFAULT) [address] [place] [address] Piperacillin+Tazobactam [Susceptibility] 8 ug/mL Invalid Interpretation Code [facility] Comment on above: Order Comment: [...] ? Performed By: #### T YPEC #### [facility] (DEFAULT) [address] [place] [address] Trimethoprim+Sulfametho xazole [Susceptibility] <= Invalid Interpretation Code [facility] Comment on above: Order Comment: [...] ? Performed By: #### T YPEC #### [facility] (DEFAULT) [address] [place] [address] CBC,PLATELETSon 08-07-2024 Erythrocyte distribution width (RBC) [Ratio] 13.9 % 10.8 - 14.9 % [facility] Hematocrit (Bld) [Volume fraction] 43.1 % 34.9 - 44.3 % [facility] Hemoglobin (Bld) [Mass/Vol] 13.7 g/dL 11.4 - 15.2 g/dL [facility] Interpretation and review of laboratory results Abnormal [facility] MCH (RBC) [Entitic mass] 29.6 pg 25.9 - 33.9 pg [facility] MCHC (RBC) [Mass/Vol] 31.8 g/dL 31.4 - 35.9 g/dL [facility] MCV (RBC) [Entitic vol] 93.1 fL 79.6 - 97.7 fL [facility] Platelet mean volume (Bld) [Entitic vol] 11.1 fL 8.5 - 12.2 fL [facility] Platelets (Bld) [#/Vol] 214 10*3/uL 150 - 393 K/uL [facility] RBC (d) [#/Vol] 4.63 10*6[facility] [#/Vol] 11.3 10*3/uL High 3.99 - 11.19 K/uL [facility] CHEM 7 (LYTES,BUN,CREA,GLUC) on 08-07-2024 Anion gap [Moles/Vol] 13 mmol/L 7 - 17 mmol/L [facility] Chloride [Moles/Vol] 105 mmol/L 98 - 10 8 mmol/L [facility] CO2 [Moles/Vol] 28 mmol/L 21 - 31 mmol/L [facility] Creatinine [Mass/Vol] 1.19 mg/dL 0.50 - 1.20 mg/dL [facility] eGFR, CKD-EPI, Female 47 Low - PINF [facility] Glucose [Mass/Vol] 90 mg/dL 70 - 179 mg/dL [facility] Interpretation and review of laboratory results Abnormal [facility] Osmolality Calc [Osmolality] 304 [facility] Potassium [Moles/Vol] 4.2 mmol/L 3.5 - 5.0 mmol/L [facility] Sodium [Moles/Vol] 142 mmol/L 135 - 145 mmol/L [facility] Urea nitrogen [Mass/Vol] 34 mg/dL High 7 - 25 mg/dL [facility] Urea nitrogen/Creatinine [Mass ratio] 29 mg/mg [facility] GLUCOSE POCon 08-07-2024 Glucose [Mass/Vol] 185 mg/dL High 70 - 179 mg/dL [facility] Interpretation and review of laboratory results Abnormal [facility] POC Sample Type CAPBL [facility] Glucose [Mass/Vol] 106 mg/dL 70 - 179 mg/dL [facility] POC [facility] Glucose [Mass/Vol] 104 mg/dL 70 - 179 mg/dL [facility] POC Sample Type CAPBL [facility] MAGNESIUMon 08-07-2024 Interpretation and review of laboratory results Normal [facility] Magnesium [Mass/Vol] 1.8 mg/dL 1.6 - 2 .6 mg/dL [facility] No Panel Informationon 08-07 [facility] CBC,PLATELETSon 08-06-2024 Hematocrit (Bld) [Volume fraction] 43.1 % Normal 34.9-44.3 [facility] Comment on above: Performed By: #### X M #### [facility] (DEFAULT) [address] [place] [address] Hemoglobin (Bld) [Mass/Vol] 13.7 g/dL Normal 11.4-15.2 [facility] Comment on above: Performed By: #### X M #### [facility] (DEFAULT) [address] [place] [address] MCV (RBC) [Entitic vol] 93.1 fL Normal 79.6-97.7 O [facility] Comment on above: Performed By: #### X M #### [facility] (DEFAULT) [address] [place] [address] Mean Cell Hgb 29.6 pg Normal 25.9-33.9 [facility] Comment on above: Performed By: #### X M #### [facility] (DEFAULT) [address] [place] [address] Mean Cell Hgb Conc 31.8 g/dL Normal 31.4-35.9 [facility] Comment on above: Performed By: #### X M #### [facility] (DEFAULT) [address] [place] [address] Platelet mean volume (Bld) [Entitic vol] 11.1 fL Normal 8.5-12.2 [facility] Comment on above: Performed By: #### X M #### [facility] (DEFAULT) [address] [place] [address] Platelets (Bld) [#/Vol] 214 10*3/uL Normal 150-393 [facility] Comment on above: Performed By: #### X M #### [facility] (DEFAULT) [address] [place] [address] RBC (Bld) [#/Vol] 4.63 10*6/uL Normal 3.91-5.04 [facility] Comment on above: Performed By: #### X M #### [facility] (DEFAULT) [address] [place] [address] RBC Distribution 13.9 % Normal 10.8-14.9 [facility] Comment on above: Performed By: #### X M #### [facility] (DEFAULT) [address] [place] [address] WBC (Bld) [#/Vol] 11.30 10*3/uL High 3.99-11.19 [facility] Comment on above: Performed By: #### X M #### [facility] (DEFAULT) [address] [place] [address] Erythrocyte distribution width (RBC) [Ratio] 13.9 % 10.8 - 14.9 % [facility] Hematocrit (Bld) [Volume fraction] 44 % 34.9 - 44.3 % [facility] Hemoglobin (Bld) [Mass/Vol] 13.9 g/dL 11.4 - 15.2 g/dL [facility] Interpretation and review of laboratory results Abnormal [facility] MCH (RBC) [Entitic mass] 29.1 pg 25.9 - 33.9 pg [facility] MCHC (RBC) [Mass/Vol] 31.6 g/dL 31.4 - 35.9 g/dL [facility] MCV (RBC) [Entitic vol] 92.2 fL 79.6 - 97.7 fL [facility] Platelet mean volume (Bld) [Entitic vol] 10.7 fL 8.5 - 12.2 fL [facility] Platelets (Bld) [#/Vol] 216 10*3/uL 150 - 393 K/uL [facility] RBC (Bld) [#/Vol] 4.77 10*6/uL [facility] WBC (Bld) [#/Vol] 12.14 10*3/uL High 3.99 - 11.19 K/uL [facility] CHEM 7 (LYTES,BUN,CREA,GLUC) on 08-06-2024 Anion gap [Moles/Vol] 13 mmol/L Normal 7-17 [facility] Comment on above: Performed By: #### Jaiden NGUYEN CHM7 ####[facility] (DEFAULT)[address] [facility] [place] [address] Chloride [Moles/Vol] 105 mmol/L Normal 98-108 [facility] Comment on above: Performed By: #### Jaiden NGUYEN CHM7 ####[facility] (DEFAULT)[address] [place] [address] CO2 [Moles/Vol] 28 mmol/L Normal 21-31 [facility] Comment on above: Performed By: #### Jaiden NGUYEN CHM7 ####[facility] (DEFAULT)[address] [place] [address] Creatinine [Mass/Vol] 1.19 mg/dL Normal 0.50-1.20 [facility] Comment on above: Performed By: #### Jaiden NGUYEN CHM7 ####[facility] (DEFAULT)[address] [place] [address] GFR/1.73 sq M.predicted among non-blacks MDRD (S/P/Bld) [Vol rate/Area] 47 mL/min/{1.73_m2} Low >=60 [facility] Comment on above: Result Comment: Repo rted eGFR is based on the CKD-EPI 2020 equation using creatinine, age, and sex. Performed By: #### HEYDI PALACIOS7 ####[facility] (DEFAULT)[address] [place] [address] Glucose [Mass/Vol] 90 mg/dL Normal Nonfastin -179 mg/dL; Fastin-99 [facility] Comment on above: Performed By: #### HEYDI PALACIOS7 ####[facility] (DEFAULT)[address] [place] [address] Osmolality [Osmolality] 304 mosm/kg Normal 278-305 [facility] Comment on above: Performed By: #### HEYDI PALACIOS7 ####[facility] (DEFAULT)[address] [place] [address] Potassium [Moles/Vol] 4.2 mmol/L Normal 3.5-5.0 [facility] Comment on above: Performed By: #### CAMERON PALACIOS ####[facility] (DEFAULT)[address] [place] [address] Sodium [Moles/Vol] 142 mmol/L Normal 135-145 [facility] Comment on above: Performed By: #### HEYDI PALACIOS7 ####[facility] (DEFAULT)[address] [place] [address] Urea nitrogen [Mass/Vol] 34 mg/dL High 7-25 [facility] Comment on above: Performed By: #### HEYDI PALACIOS7 ####[facility] (DEFAULT)[address] [place] [address] Urea nitrogen/Creatinine [Mass ratio] 29 mg/mg Normal [facility] Comment on above: Performed By: #### HEYDI PALACIOS7 ####[facility] (DEFAULT)[address] [place] [address] Anion gap [Moles/Vol] 14 mmol/L 7 - 17 mmol/L [facility] Chloride [Moles/Vol] 107 mmol/L 98 - 10 8 [facility] CO2 [Moles/Vol] 27 mmol/L 21 - 31 mmol/L [facility] Creatinine [Mass/Vol] 1.19 mg/dL 0.50 - 1.20 mg/dL [facility] e[facility], CKD-EPI, Female 47 Low - PINF [facility] Glucose [Mass/Vol] 88 mg/dL 70 - 179 mg/dL [facility] Interpretation and review of laboratory results Abnormal [facility] Osmolality Calc [Osmolality] 307 [facility] Potassium [Moles/Vol] 3.9 mmol/L 3.5 - 5.0 mmol/L [facility] Sodium [Moles/Vol] 144 mmol/L 135 - 145 mmol/L [facility] Urea nitrogen [Mass/Vol] 34 mg/dL High 7 - 25 mg/dL [facility] Urea nitrogen/Creatinine [Mass ratio] 29 mg/mg [facility] GLUCOSE POCon 08-06-2024 Glucose [Mass/Vol] 166 mg/dL 70 - 179 mg/dL [facility] Glucose [Mass/Vol] 106 mg/dL 70 - 179 mg/dL [facility] Glucose [Mass/Vol] 100 mg/dL 70 - 179 mg/dL [facility] POC Sample Type VENO [facility] Glucose [Mass/Vol] 219 mg/dL High 70 - 179 mg/dL [facility] Interpretation and review of laboratory results Abnormal [facility] Glucose [Mass/Vol] 249 mg/dL High 70 - 179 mg/dL [facility] Glucose [Mass/Vol] 178 mg/dL 70 - 179 mg/dL [facility] Glucose [Mass/Vol] 194 mg/dL High 70 - 179 mg/dL [facility] Glucose [Mass/Vol] 93 mg/dL 70 - 179 mg/dL [facility] P[facility] Sample [facility] IONIZ[facility], WHOLE BLOOD Ordered By: Zuleika Blunt on 08-06-2024 Calcium.ionized (Bld) [Moles/Vol] 4.72 mg/dL 4.60 - 5.30 mg/dL [facility] Interpretation and review of laboratory results Normal [facility] MAGNESIUMon 08-06-2024 Magnesium [Mass/Vol] 1.8 mg/dL Normal 1.6-2.6 [facility] Comment on above: Performed By: #### M [facility] ####[facility] (DEFAULT)[address] [place] [address] Magnesium [Mass/Vol] 2.4 mg/dL 1.6 - 2 .6 mg/dL [facility] No Panel Informationon 08-06 POC Sample Type [facility] Interpretation and review of laboratory results Abnormal [facility] POC Sample Type [facility] Interpretation and review of laboratory results Normal [facility] PHOSPHATE, INORGANICon 08-06 Phosphate [Mass/Vol] 3.2 mg/dL 2.2 - 4 .6 mg/dL [facility] RF videography Hypopharynx a nd Esophagus Views W liquid and paste contrast PO during swallowingon 08-06-2024 RADIOLOGY RADIOLOGY [facility] Radiology Study observation (narrative) [facility] RF videography Hypopharynx a nd Esophagus Views W liquid and paste contrast PO during swallowingOrdered By: Gerry Resendez on 08-06-2024 [facility] Work Phone: SPEECH MODIFIED BARIUM SWALL OWon 08-06-2024 [facility] XR FLUORO MODIFIED BARIUM SW [...] for specific therapeutic recommendations, please see the clinical research assistant report of the speech pathologist. Examination performed by ARCADIO Nicole, under the direct supervision of Gerry Resendez M.D., who was immediately available on site during the examination. I personally viewed and interpreted these images and I have reviewed and approved this report. Normal [facility] CBC,PLATELETSon 08-05-2024 Hematocrit (Bld) [Volume fraction] 44.0 % Normal 34.9-44.3 [facility] Comment on above: Performed By: #### B LDCULT #### [facility] (DEFAULT) [address] [address] Hemoglobin (Bld) [Mass/Vol] 13.9 g/dL Normal 11.4-15.2 [facility] Comment on above: Performed By: #### B LDCULT #### [facility] (DEFAULT) [address] [address] MCV (RBC) [Entitic vol] 92.2 fL Normal 79.6-97.7 O [facility] Comment on above: Performed By: #### B LDCULT #### [facility] (DEFAULT) [address] [address] Mean Cell Hgb 29.1 pg Normal 25.9-33.9 [facility] Comment on above: Performed By: #### B LDCULT #### [facility] (DEFAULT) [address] [place] [address] Mean Cell Hgb Conc 31.6 g/dL Normal 31.4-35.9 [facility] Comment on above: Performed By: #### B LDCULT #### [facility] (DEFAULT) [address] [place] [address] Platelet mean volume (Bld) [Entitic vol] 10.7 fL Normal 8.5-12.2 [facility] Comment on above: Performed By: #### B LDCULT #### [facility] (DEFAULT) [address] [place] [address] Platelets (Bld) [#/Vol] 216 10*3/uL Normal 150-393 [facility] Comment on above: Performed By: #### B LDCULT #### [facility] (DEFAULT) [address] [place] [address] RBC (Bld) [#/Vol] 4.77 10*6/uL Normal 3.91-5.04 [facility] Comment on above: Performed By: #### B LDCULT #### [facility] (DEFAULT) [address] [place] [address] RBC Distribution 13.9 % Normal 10.8-14.9 [facility] Comment on above: Performed By: #### B LDCULT #### [facility] (DEFAULT) [address] [place] [address] WBC (Bld) [#/Vol] 12.14 10*3/uL High 3.99-11.19 [facility] Comment on above: Performed By: #### B LDCULT #### [facility] (DEFAULT) [address] [place] [address] Erythrocyte distribution width (RBC) [Ratio] 13.9 % 10.8 - 14.9 % [facility] Hematocrit (Bld) [Volume fraction] 39.6 % 34.9 - 44.3 % [facility] Hemoglobin (Bld) [Mass/Vol] 12.6 g/dL 11.4 - 15.2 g/dL [facility] Interpretation and review of laboratory results Normal [facility] MCH (RBC) [Entitic mass] 29.3 pg 25.9 - 33.9 pg [facility] MCHC (RBC) [Mass/Vol] 31.8 g/dL 31.4 - 35.9 g/dL [facility] MCV (RBC) [Entitic vol] 92.1 fL 79.6 - 97.7 fL [facility] Platelet mean volume (Bld) [Entitic vol] 10.7 fL 8.5 - 12.2 fL [facility] Platelets (Bld) [#/Vol] 198 10*3/uL 150 - 393 K/uL [facility] RBC (Bld) [#/Vol] 4.3 10*6/uL [facility] WBC (Bld) [#/Vol] 10.61 10*3/uL 3.99 - 11.19 K/uL [facility] Hematocrit (Bld) [Volume fraction] 39.6 % Normal 34.9-44.3 [facility] Comment on above: Performed By: #### H [facility] ####[facility] (DEFAULT)[address] [place] [address] Hemoglobin (Bld) [Mass/Vol] 12.6 g/dL Normal 11.4-15.2 [facility] Comment on above: Performed By: #### H [facility] ####[facility] (DEFAULT)[address] [place] [address] MCV (RBC) [Entitic vol] 92.1 fL Normal 79.6-97.7 O [facility] Comment on above: Performed By: #### H [facility] ####[facility] (DEFAULT)[address] [place] [address] Mean Cell Hgb 29.3 pg Normal 25.9-33.9 [facility] Comment on above: Performed By: #### H EMOGC ####[facility] (DEFAULT)[address] [place] [address] Mean Cell Hgb Conc 31.8 g/dL Normal 31.4-35.9 [facility] Comment on above: Performed By: #### H EMOGC ####[facility] (DEFAULT)[address] [place] [address] Platelet mean volume (Bld) [Entitic vol] 10.7 fL Normal 8.5-12.2 [facility] Comment on above: Performed By: #### H EMOGC ####[facility] (DEFAULT)[address] [place] [address] Platelets (Bld) [#/Vol] 198 10*3/uL Normal 150-393 [facility] Comment on above: Performed By: #### H EMOGC ####[facility] (DEFAULT)[address] [place] [address] RBC (Bld) [#/Vol] 4.30 10*6/uL Normal 3.91-5.04 [facility] Comment on above: Performed By: #### H EMOGC ####[facility] (DEFAULT)[address] [place] [address] RBC Distribution 13.9 % Normal 10.8-14.9 [facility] Comment on above: Performed By: #### H EMOGC ####[facility] (DEFAULT)[address] [place] [address] WBC (Bld) [#/Vol] 10.61 10*3/uL Normal 3.99-11.19 [facility] Comment on above: Performed By: #### H EMOGC ####[facility] (DEFAULT)[address] [place] [address] CHEM 7 (LYTES,BUN,CREA,GLUC) on 08-05-2024 Anion gap [Moles/Vol] 14 mmol/L Normal 7-17 [facility] Comment on above: Performed By: #### S URGP #### [facility] (DEFAULT) [address] [place] [address] Chloride [Moles/Vol] 107 mmol/L Normal 98-108 [facility] Comment on above: Performed By: #### S URGP #### [facility] (DEFAULT) [address] [place] [address] CO2 [Moles/Vol] 27 mmol/L Normal 21-31 [facility] Comment on above: Performed By: #### S URGP #### [facility] (DEFAULT) [address] [place] [address] Creatinine [Mass/Vol] 1.19 mg/dL Normal 0.50-1.20 [facility] Comment on above: Performed By: #### S URGP #### [facility] (DEFAULT) [address] [place] [address] GFR/1.73 sq M.predicted among non-blacks MDRD (S/P/Bld) [Vol rate/Area] 47 mL/min/{1.73_m2} Low >=60 [facility] Comment on above: Result Comment: Repo rted eGFR is based on the CKD-EPI 2020 equation using creatinine, age, and sex. Performed By: #### S URGP #### [facility] (DEFAULT) [address] [place] [address] Glucose [Mass/Vol] 88 mg/dL Normal Nonfastin -179 mg/dL; Fastin-99 [facility] Comment on above: Performed By: #### S URGP #### [facility] (DEFAULT) [address] [place] [address] Osmolality [Osmolality] 307 mosm/kg High 278-305 [facility] Comment on above: Performed By: #### S URGP #### [facility] (DEFAULT) [address] [place] [address] Potassium [Moles/Vol] 3.9 mmol/L Normal 3.5-5.0 [facility] Comment on above: Performed By: #### S URGP #### [facility] (DEFAULT) [address] [place] [address] Sodium [Moles/Vol] 144 mmol/L Normal 135-145 [facility] Comment on above: Performed By: #### S URGP #### [facility] (DEFAULT) [address] [place] [address] Urea nitrogen [Mass/Vol] 34 mg/dL High 7-25 [facility] Comment on above: Performed By: #### S URGP #### [facility] (DEFAULT) [address] [place] [address] Urea nitrogen/Creatinine [Mass ratio] 29 mg/mg Normal [facility] Comment on above: Performed By: #### S URGP #### [facility] (DEFAULT) [address] [place] [address]76 Anion gap [Moles/Vol] 14 mmol/L 7 - 17 mmol/L [facility] Chloride [Moles/Vol] 108 mmol/L 98 - 10 8 mmol/L [facility] CO2 [Moles/Vol] 25 mmol/L 21 - 31 mmol/L [facility] Creatinine [Mass/Vol] 1.45 mg/dL High 0.50 - 1.20 mg/dL [facility] eGFR, CKD-EPI, Female 37 Low - PINF [facility] Glucose [Mass/Vol] 242 mg/dL High 70 - 179 mg/dL [facility] Interpretation and review of laboratory results Abnormal [facility] Osmolality Calc [Osmolality] 315 High [facility] Potassium [Moles/Vol] 3.8 mmol/L 3.5 - 5.0 mmol/L [facility] Sodium [Moles/Vol] 143 mmol/L 135 - 145 mmol/L [facility] Urea nitrogen [Mass/Vol] 35 mg/dL High 7 - 25 mg/dL [facility] Urea nitrogen/Creatinine [Mass ratio] 24 mg/mg [facility] Anion gap [Moles/Vol] 14 mmol/L Normal 7-17 [facility] Comment on above: Performed By: #### X M #### [facility] (DEFAULT) [address] [address] Chloride [Moles/Vol] 108 mmol/L Normal 98-108 [facility] Comment on above: Performed By: #### X M #### [facility] (DEFAULT) [address] [address] CO2 [Moles/Vol] 25 mmol/L Normal 21-31 [facility] Comment on above: Performed By: #### X M #### [facility] (DEFAULT) [address] [address] Creatinine [Mass/Vol] 1.45 mg/dL High 0.50-1.20 [facility] Comment on above: Performed By: #### X M #### [facility] (DEFAULT) [address] [address] GFR/1.73 sq M.predicted among non-blacks MDRD (S/P/Bld) [Vol rate/Area] 37 mL/min/{1.73_m2} Low >=60 [facility] Comment on above: Result Comment: Repo rted eGFR is based on the CKD-EPI 2020 equation using creatinine, age, and sex. Performed By: #### X M #### [facility] (DEFAULT) [address] [address] Glucose [Mass/Vol] 242 mg/dL High Nonfastin -179 mg/dL; Fastin-99 [facility] Comment on above: Performed By: #### X M #### [facility] (DEFAULT) [address] [place] [address] Osmolality [Osmolality] 315 mosm/kg High 278-305 [facility] Comment on above: Performed By: #### X M #### [facility] (DEFAULT) [address] [place] [address] Potassium [Moles/Vol] 3.8 mmol/L Normal 3.5-5.0 [facility] Comment on above: Performed By: #### X M #### [facility] (DEFAULT) [address] [place] [address] Sodium [Moles/Vol] 143 mmol/L Normal 135-145 [facility] Comment on above: Performed By: #### X M #### [facility] (DEFAULT) [address] [place] [address] Urea nitrogen [Mass/Vol] 35 mg/dL High 7-25 [facility] Comment on above: Performed By: #### X M #### [facility] (DEFAULT) [address] [place] [address] Urea nitrogen/Creatinine [Mass ratio] 24 mg/mg Normal [facility] Comment on above: Performed By: #### X M #### [facility] (DEFAULT) [address] [place] [address] Cardiac echo study Procedure Ordered By: Ezequiel Figueroa on 08-05-2024 Ao ASC index 1.56 cm/m2 [facility] Work Phone: [phone] Ao peak fidel 1.23 m/s [facility] Work Phone: [phone] Ao SOV index 1.56 cm/m2 [facility] Work Phone: [phone] Ao STJ index 1.36 cm/m2 [facility] Work Phone: [phone] Ao VTI 24.81 cm [facility] Work Phone: [phone] Ascending aorta 2.97 cm [facility] Work Phone: [phone] AV LVOT peak gradient 4 mmHg [facility] Work Phone: [phone] AV mean gradient 4 mmHg [facility] Work Phone: [phone] AV peak gradient 6 mmHG [facility] Work Phone: [phone] AV valve area 2.72 cm2 [facility] Work Phone: [phone] AV Velocity Ratio 0.8 [facility] Work Phone: [phone] MARKUS (continuity Vmax) 2.55 cm2 [facility] Work Phone: [phone] MARKUS (continuity VTI) 2.72 cm2 [facility] Work Phone: [phone] MARKUS index (continuity Vmax) 1.34 m/s [facility] Work Phone: [phone] MARKUS index (continuity VTI) 1.43 cm2/m2 [facility] Work Phone: [phone] Avg e' pk fidel 0.09 m/s [facility] Work Phone: [phone] Body surface area Derived from formula 1.9 m2 [facility] Work Phone: [phone] BP EF 55 % [facility] Work Phone: [phone] DI (Vmax) 0.8 [facility] Work Phone: [phone] DI (VTI) 0.86 m/2 [facility] Work Phone: [phone] e' lateral pk fidel 0.0845 m/s [facility]: [phone] e' lateral pk fidel 0.08 m/s [facility] Work Phone: [phone] e' septal pk fidel 0.0953 m/s [facility] Work Phone: [phone] e' septal pk fidel 0.1 m/s [facility] Work Phone: [phone] EF SP [facility]CH [facility] Work [facility]: [phone] EF SP 4CH 51 [facility] Work Phone: [phone] EST RAP 3 mmHg [facility] Work Phone: [phone] EST RVSP 29 mmHg [facility] Work Phone: [phone] FS 31 % [facility] Work Phone: [phone] IVC ostium 1.64 cm [facility] Work Phone: [phone] IVS 1.14 cm [facility] Work Phone: [phone] LA area 4CH 29.07 cm2 [facility] Work Phone: [phone] LA ESV BP (MOD) 86 [facility] Work Phone: [phone] LA ESV BP (MOD) index 45 mL/m2 [facility] Work Phone: [phone] LA ESV SP 2CH (MOD) 81 mL [facility] Work Phone: [phone] LA ESV SP 4CH (MOD) 93 mL [facility] Work Phone: [phone] LV EDV BP 88 mL [facility] Work Phone: [phone] LV EDV SP 2CH 85 mL [facility] Work Phone: [phone] LV EDV SP 4CH 86 mL [facility] Work Phone: [phone] LV ESV BP 40 mL [facility] Work Phone: [phone] LV ESV SP 2CH 37 mL [facility] Work Phone: [phone] LV ESV SP 4CH 42 mL [facility] Work Phone: [phone] LV mass 146.48 g [facility] Work Phone: [phone] LV Mass Index 77.1 g/m2 [facility] Work Phone: [phone] LV RWT 0.56 [facility] Work Phone: [phone] LV stroke volume BP (ml) 48 mL [facility] Work Phone: [phone] LV stroke volume index BP 25.26 mL/m2 [facility] Work Phone: [phone] LVIDD 3.93 cm [facility] Work Phone: [phone] LVIDS 2.7 cm [facility] Work Phone: [phone] LVOT area 3.17 cm2 [facility] Work Phone: [phone] LVOT diameter 2.01 cm [facility] Work Phone: [phone] LVOT peak fidel 0.99 m/s [facility] Work Phone: [phone] LVOT peak VTI 21.3 cm [facility] Work Phone: [phone] LVOT stroke volume 68 cm3 [facility] Work Phone: [phone] LVOT stroke volume index 35.55 ml/m2 [facility] Work Phone: [phone] MV mean gradient 3 mmHg [facility] Work Phone: [phone] MV peak gradient 6 mmHg [facility] Work Phone: [phone] MV valve area by continuity eq 2.61 cm2 [facility] Work Phone: [phone] MV VTI 25.92 cm [facility] Work Phone: [phone] MVA (continuity VTI) 2.6 cm [facility] Work Phone: [phone] [facility]SU AV VTI RATIO PRE STRESS 0.86 [facility] Work Phone: OSU ECHO LV BIPLANE SYSTOLIC VOLUME INDEX 21.05 mL/m2 [facility] Work Phone: [facility] ECHO LV BP DIASTOLIC VOLUME INDEX 46.32 mL/m2 [facility] Work Phone: PV mean gradient 3 [facility]: PV peak gradient 6 [facility] Work Phone: PV PK FIDEL 1.23 m/s [facility] Work Phone: PW 1.11 cm [facility] Work Phone: RA area 4CH (MOD) 22.74 cm2 [facility] Work Phone: RA vol index 4CH (MOD) 36.32 mL/m2 O [facility] Work Phone: Right atrium volume 4 chamber method of disks 69 mL [facility] Work Phone: RV Area diastolic 17.5 cm2 [facility] Work Phone: RV Area systolic 11.9 cm2 [facility] Work Phone: RV basal diam 4.56 cm [facility] Work Phone: RV Fractional area change 32 % [facility] Work Phone: RV long diam 6.91 cm [facility] Work Phone: RV mid diam 2.91 cm [facility] Work Phone: RV S' 12.81 cm/s [facility] Work Phone: RVOT peak gradient 5 mmHg [facility] Work Phone: RVOT peak fidel 1.07 m/s [facility] Work Phone: [phone] RVOT peak VTI 20.1 cm [facility] Work Phone: [phone] Sinus 2.97 cm [facility] Work Phone: [phone] STJ 2.58 cm [facility] Work Phone: [phone] Stroke Volume 68 cm/mL [facility] Work Phone: [phone] Stroke volume index 36 [facility] Work Phone: [phone] TAPSE 2.08 cm [facility] Work Phone: [phone] TR pk grad 26 mmHg [facility] Work Phone: [phone] TR pk fidel 2.53 m/s [facility] Work Phone: [phone] [facility] Work Phone: Cardiac echo study Procedure on 08-05-2024 [facility] Radiology Study observation (narrative) [facility] ECHOCARDIOGRAMon 08-05-2024 Echocardiography ? No prior study [...] from the original result were not included. [facility] Facility [facility] Patient Information Patient Name Lindsay Acuna Legal [...] Role Read Date Ezequiel Figueroa DO Echo [place] 08/05/2024 Left Heart Measurements LV - Systole [...] long di (more content not included)... Normal [facility] GLUCOSE POCon 08-05-2024 Glucose [Mass/Vol] 228 mg/dL High 70 - 179 mg/dL [facility] Interpretation and review of laboratory results Abnormal [facility] POC Sample Type CAPBL [facility] IONIZED CALCIUM, WHOLE BLOOD on 08-05-2024 ICA 4.72 mg/dL Normal 4.60-5.30 [facility] Comment on above: Performed By: #### S URGP #### [facility] (DEFAULT) [address] [place] [address] ICA 4.69 mg/dL Normal 4.60-5.30 [facility] Comment on above: Performed By: #### S URGP #### [facility] (DEFAULT) [address] [place] [address] IONIZED CALCIUM, WHOLE BLOOD Ordered By: Jairo Layton on 08-05-2024 Calcium.ionized (Bld) [Moles/Vol] 4.69 mg/dL 4.60 - 5.30 mg/dL [facility] Interpretation and review of laboratory results Normal [facility] MAGNESIUMon 08-05-2024 Magnesium [Mass/Vol] 2.4 mg/dL Normal 1.6-2.6 [facility] Comment on above: Performed By: #### S URGP #### [facility] (DEFAULT) [address] [place] [address] Magnesium [Mass/Vol] 1.8 mg/dL 1.6 - 2 .6 mg/dL [facility] Magnesium [Mass/Vol] 1.8 mg/dL Normal 1.6-2.6 [facility] Comment on above: Performed By: #### X M #### [facility] (DEFAULT) [address] [place] [address] No Panel Informationon 08-05 Interpretation and review of laboratory results Normal [facility] PHOSPHATE, INORGANICon 08-05 Phosphorous 3.2 mg/dL Normal 2.2-4.6 [facility] Comment on above: Performed By: #### S URGP #### [facility] (DEFAULT) [address] [place] [address] Phosphate [Mass/Vol] 2.7 mg/dL 2.2 - 4 .6 mg/dL [facility] Phosphorous 2.7 mg/dL Normal 2.2-4.6 [facility] Comment on above: Performed By: #### X M #### [facility] (DEFAULT) [address] [place] [address] [facility] AGOrde red By: Madhavi Mcelroy on 08-05-2024 Interpretation and review of laboratory results Abnormal [facility] vWf Ag actual/normal IA (PPP) [Relative mass conc] 230 % High 50 - 180 % [facility] CBC,PLATELETSon 08-04-2024 Erythrocyte distribution width (RBC) [Ratio] 13.7 % 10.8 - 14.9 % [facility] Hematocrit (Bld) [Volume fraction] 40.8 % 34.9 - 44.3 % [facility] Hemoglobin (Bld) [Mass/Vol] 12.7 g/dL 11.4 - 15.2 g/dL [facility] Interpretation and review of laboratory results Abnormal [facility] MCH (RBC) [Entitic mass] 28.7 pg 25.9 - 33.9 pg [facility] MCHC (RBC) [Mass/Vol] 31.1 g/dL Low 31.4 - 35.9 g/dL [facility] MCV (RBC) [Entitic vol] 92.1 fL 79.6 - 97.7 fL [facility] Platelet mean volume (Bld) [Entitic vol] 10.8 fL 8.5 - 12.2 fL [facility] Platelets (Bld) [#/Vol] 228 10*3/uL 150 - 393 K/uL [facility] RBC (Bld) [#/Vol] 4.43 10*6/uL [facility] WBC (Bld) [#/Vol] 11.41 10*3/uL High 3.99 - 11.19 K/uL [facility] Hematocrit (Bld) [Volume fraction] 40.8 % Normal 34.9-44.3 [facility] Comment on above: Performed By: #### H [facility] #### [facility] (DEFAULT) [address] [place] [address] Hemoglobin (Bld) [Mass/Vol] 12.7 g/dL Normal 11.4-15.2 [facility] Comment on above: Performed By: #### H [facility] #### [facility] (DEFAULT) [address] [place] [address] MCV (RBC) [Entitic vol] 92.1 fL Normal 79.6-97.7 O [facility] Comment on above: Performed By: #### H EMOGC #### [facility] (DEFAULT) [address] [place] [address] Mean Cell Hgb 28.7 pg Normal 25.9-33.9 [facility] Comment on above: Performed By: #### H EMOGC #### [facility] (DEFAULT) [address] [place] [address] Mean Cell Hgb Conc 31.1 g/dL Low 31.4-35.9 [facility] Comment on above: Performed By: #### H EMOGC #### [facility] (DEFAULT) [address] [place] [address] Platelet mean volume (Bld) [Entitic vol] 10.8 fL Normal 8.5-12.2 [facility] Comment on above: Performed By: #### H EMOGC #### [facility] (DEFAULT) [address] [place] [address] Platelets (Bld) [#/Vol] 228 10*3/uL Normal 150-393 [facility] Comment on above: Performed By: #### H EMOGC #### [facility] (DEFAULT) [address] [place] [address] RBC (Bld) [#/Vol] 4.43 10*6/uL Normal 3.91-5.04 [facility] Comment on above: Performed By: #### H EMOGC #### [facility] (DEFAULT) [address] [place] [address] RBC Distribution 13.7 % Normal 10.8-14.9 [facility] Comment on above: Performed By: #### H EMOGC #### [facility] (DEFAULT) [address] [place] [address] WBC (Bld) [#/Vol] 11.41 10*3/uL High 3.99-11.19 [facility] Comment on above: Performed By: #### H EMO #### [facility] (DEFAULT) [address] [place] [id number] CHEM 7 (LYTES,BUN,CREA,GLUC) Ordered By: Lizette Canseco on 08-04-2024 Anion gap [Moles/Vol] 16 mmol/L 7 - 17 mmol/L [facility] Chloride [Moles/Vol] 109 mmol/L High 98 - 10 8 mmol/L [facility] CO2 [Moles/Vol] 24 mmol/L 21 - 31 mmol/L [facility] Creatinine [Mass/Vol] 1.47 mg/dL High 0.50 - 1.20 mg/dL [facility] eGFR, CKD-EPI, Female 36 Low - PINF [facility] Glucose [Mass/Vol] 181 mg/dL High 70 - 179 mg/dL [facility] Interpretation and review of laboratory results Abnormal [facility] Osmolality Calc [Osmolality] 312 High [facility] Potassium [Moles/Vol] 4 mmol/L 3.5 - 5.0 mmol/L [facility] Sodium [Moles/Vol] 145 mmol/L 135 - 145 mmol/L [facility] Urea nitrogen [Mass/Vol] 26 mg/dL High 7 - 25 mg/dL [facility] Urea nitrogen/Creatinine [Mass ratio] 18 mg/mg [facility] CHEM 7 (LYTES,BUN,CREA,GLUC) on 08-04-2024 Anion gap [Moles/Vol] 16 mmol/L Normal 7-17 [facility] Comment on above: Performed By: #### S URGP #### [facility] (DEFAULT) [address] [place] [address] Chloride [Moles/Vol] 109 mmol/L High 98-108 [facility] Comment on above: Performed By: #### S URGP #### [facility] (DEFAULT) [address] [place] [address] CO2 [Moles/Vol] 24 mmol/L Normal 21-31 [facility] Comment on above: Performed By: #### S URGP #### [facility] (DEFAULT) [address] [place] [address] Creatinine [Mass/Vol] 1.47 mg/dL High 0.50-1.20 [facility] Comment on above: Performed By: #### S URGP #### [facility] (DEFAULT) [address] [place] [address] GFR/1.73 sq M.predicted among non-blacks MDRD (S/P/Bld) [Vol rate/Area] 36 mL/min/{1.73_m2} Low >=60 [facility] Comment on above: Result Comment: Repo rted eGFR is based on the CKD-EPI 2020 equation using creatinine, age, and sex. Performed By: #### S URGP #### [facility] (DEFAULT) [address] [place] [address] Glucose [Mass/Vol] 181 mg/dL High Nonfastin -179 mg/dL; Fastin-99 [facility] Comment on above: Performed By: #### S URGP #### [facility] (DEFAULT) [address] [place] [address] Osmolality [Osmolality] 312 mosm/kg High 278-305 [facility] Comment on above: Performed By: #### S URGP #### [facility] (DEFAULT) [address] [place] [address] Potassium [Moles/Vol] 4.0 mmol/L Normal 3.5-5.0 [facility] Comment on above: Performed By: #### S URGP #### [facility] (DEFAULT) [address] [place] [address] Sodium [Moles/Vol] 145 mmol/L Normal 135-145 [facility] Comment on above: Performed By: #### S URGP #### [facility] (DEFAULT) [address] [place] [address] Urea nitrogen [Mass/Vol] 26 mg/dL High 7-25 [facility] Comment on above: Performed By: #### S URGP #### [facility] (DEFAULT) [address] [place] [address] Urea nitrogen/Creatinine [Mass ratio] 18 mg/mg Normal [facility] Comment on above: Performed By: #### S URGP #### [facility] (DEFAULT) [address] [place] [address] CT HEAD WITHOUT CONTRASTon 0 08-04-2024 CT [...] sinuses are clear. IMPRESSION: Stable exam. Normal [facility] CT Head WO contraston 2024 RADIOLOGY RADIOLOGY [facility] CT Head WO contrastOrdered B y: Chirag Mendenhall on 08-04-2024 [facility] Work Phone: GLUCOSE POCon 08-04-2024 Glucose [Mass/Vol] 227 mg/dL High 70 - 179 mg/dL [facility] Interpretation and review of laboratory results Abnormal [facility]OC [facility] Glucose [Mass/Vol] 235 mg/dL High 70 - 179 mg/dL [facility] Interpretation and review of laboratory results Abnormal [facility] POC [facility] Glucose [Mass/Vol] 215 mg/dL High 70 - 179 mg/dL [facility] Interpretation and review of laboratory results Abnormal [facility] POC Sample Type CAPBL [facility] Glucose [Mass/Vol] 178 mg/dL 70 - 179 mg/dL [facility] Glucose [Mass/Vol] 157 mg/dL 70 - 179 mg/dL [facility] Glucose [Mass/Vol] 271 mg/dL High 70 - 179 mg/dL [facility] Glucose [Mass/Vol] 267 mg/dL High 70 - 179 mg/dL [facility] Glucose [Mass/Vol] 246 mg/dL High 70 - 179 mg/dL [facility] IONIZED CALCIUM, WHOLE BLOOD Ordered By: Laura Rodriguez on 08-04-2024 Calcium.ionized (Bld) [Moles/Vol] 4.8 mg/dL 4.60 - 5.30 mg/dL [facility] Interpretation and review of laboratory results Normal [facility] IONIZED CALCIUM, WHOLE BLOOD on 08-04-2024 ICA 4.80 mg/dL Normal 4.60-5.30 [facility] Comment on above: Performed By: #### T YPEC #### [facility] (DEFAULT) [address] [place] [address] MAGNESIUMon 08-04-2024 Magnesium [Mass/Vol] 1.9 mg/dL 1.6 - 2 .6 mg/dL [facility] Magnesium [Mass/Vol] 1.9 mg/dL Normal 1.6-2.6 [facility] Comment on above: Performed By: #### X M #### [facility] (DEFAULT) [address] [place] [address] No Panel Informationon 08-04 POC Sample Type CAPBL [facility] Interpretation and review of laboratory results Abnormal [facility] Interpretation and review of laboratory results Normal [facility] PHOSPHATE, INORGANICon 08-04 Phosphate [Mass/Vol] 2.8 mg/dL 2.2 - 4 .6 mg/dL [facility] Phosphorous 2.8 mg/dL Normal 2.2-4.6 [facility] Comment on above: Performed By: #### X M #### [facility] (DEFAULT) [address] [address] SODIUMon 08-04-2024 Interpretation and review of laboratory results Normal [facility] Sodium [Moles/Vol] 142 mmol/L 135 - 145 mmol/L [facility] Sodium [Moles/Vol] 142 mmol/L Normal 135-145 [facility] Comment on above: Order Comment: While on 3% Hypertonic Saline. Performed By: #### S URGP #### [facility] (DEFAULT) [address] [place] [address] Interpretation and review of laboratory results Normal [facility] Sodium [Moles/Vol] 141 mmol/L 135 - 145 mmol/L [facility] Sodium [Moles/Vol] 141 mmol/L Normal 135-145 [facility] Comment on above: Order Comment: 2 [...] bottle. Performed By: #### B LDCULT #### [facility] (DEFAULT) [address] [place] [address] Interpretation and review of laboratory results Normal [facility] [facility] S[facility] [Moles/Vol] 143 mmol/L 135 - 145 mmol/L [facility] Sodium [Moles/Vol] 143 mmol/L Normal 135-145 [facility] Comment on above: Order Comment: While on 3% Hypertonic Saline. Performed By: #### H [facility] #### [facility] (DEFAULT) [address] [place] [address]40 ABORH TYPE RECONFIRMATIONon 08-03-2024 ABO/RH(D) TYPE Negative [facility] ABO/RH(D) TYPE Negative Normal [facility] Comment on above: Performed By: #### T YPEC #### [facility] (DEFAULT) [address] [place] [address] 53114 CBC,PLATELETSon 08-03-2024 Erythrocyte distribution width (RBC) [Ratio] 13.2 % 10.8 - 14.9 % [facility] Hematocrit (Bld) [Volume fraction] 42.8 % 34.9 - 44.3 % [facility] Hemoglobin (Bld) [Mass/Vol] 13.5 g/dL 11.4 - 15.2 g/dL [facility] Interpretation and review of laboratory results Normal [facility] MCH (RBC) [Entitic mass] 29.2 pg 25.9 - 33.9 pg [facility] MCHC (RBC) [Mass/Vol] 31.5 g/dL 31.4 - 35.9 g/dL [facility] MCV (RBC) [Entitic vol] 92.4 fL 79.6 - 97.7 fL [facility] Platelet mean volume (Bld) [Entitic vol] 11.2 fL 8.5 - 12.2 fL [facility] Platelets (Bld) [#/Vol] 227 10*3/uL 150 - 393 K/uL [facility] RBC (Bld) [#/Vol] 4.63 10*6/uL [facility] WBC (Bld) [#/Vol] 8.43 10*3/uL 3.99 - 11.19 K/uL [facility] Hematocrit (Bld) [Volume fraction] 42.8 % Normal 34.9-44.3 [facility] Comment on above: Performed By: #### X M #### [facility] (DEFAULT) [address] [place] [address] 75746 Hemoglobin (Bld) [Mass/Vol] 13.5 g/dL Normal 11.4-15.2 [facility] Comment on above: Performed By: #### X M #### [facility] (DEFAULT) [address] [place] [address] 78799 MCV (RBC) [Entitic vol] 92.4 fL Normal 79.6-97.7 O [facility] Comment on above: Performed By: #### X M #### [facility] (DEFAULT) [address] [place] [address] 82529 Mean Cell Hgb 29.2 pg Normal 25.9-33.9 [facility] Comment on above: Performed By: #### X M #### [facility] (DEFAULT) [address] [place] [address] 42594 Mean Cell Hgb Conc 31.5 g/dL Normal 31.4-35.9 [facility] Comment on above: Performed By: #### X M #### [facility] (DEFAULT) [address] [place] [address] 76412 Platelet mean volume (Bld) [Entitic vol] 11.2 fL Normal 8.5-12.2 [facility] Comment on above: Performed By: #### X M #### [facility] (DEFAULT) [address] [place] [address] 40000 Platelets (Bld) [#/Vol] 227 10*3/uL Normal 150-393 [facility] Comment on above: Performed By: #### X M #### [facility] (DEFAULT) [address] [place] [address] 97580 RBC (Bld) [#/Vol] 4.63 10*6/uL Normal 3.91-5.04 [facility] Comment on above: Performed By: #### X M #### [facility] (DEFAULT) [address] [place] [address] 19262 RBC Distribution 13.2 % Normal 10.8-14.9 [facility] Comment on above: Performed By: #### X M #### [facility] (DEFAULT) [address] [place] [address] 00424 WBC (Bld) [#/Vol] 8.43 10*3/uL Normal 3.99-11.19 [facility] Comment on above: Performed By: #### X M #### [facility] (DEFAULT) [address] [place] [address] 18854 CHEM 7 (LYTES,BUN,CREA,GLUC) on 08-03-2024 Anion gap [Moles/Vol] 16 mmol/L 7 - 17 mmol/L [facility] Chloride [Moles/Vol] 103 mmol/L 98 - 10 8 mmol/L [facility] CO2 [Moles/Vol] 23 mmol/L 21 - 31 mmol/L [facility] Creatinine [Mass/Vol] 1.35 mg/dL High 0.50 - 1.20 mg/dL [facility] eGFR, CKD-EPI, Female 40 Low - PINF [facility] Glucose [Mass/Vol] 151 mg/dL 70 - 179 mg/dL [facility] Interpretation and review of laboratory results Abnormal [facility] Osmolality Calc [Osmolality] 295 [facility] Potassium [Moles/Vol] 4.3 mmol/L 3.5 - 5.0 mmol/L [facility] Sodium [Moles/Vol] 138 mmol/L 135 - 145 mmol/L [facility] Urea nitrogen [Mass/Vol] 18 mg/dL 7 - 25 mg/dL [facility] Urea nitrogen/Creatinine [Mass ratio] 13 mg/mg [facility] Anion gap [Moles/Vol] 16 mmol/L Normal 7-17 [facility] Comment on above: Performed By: #### S URGP #### [facility] (DEFAULT) [address] [place] [address] 61912 Chloride [Moles/Vol] 103 mmol/L Normal 98-108 [facility] Comment on above: Performed By: #### S URGP #### [facility] (DEFAULT) [address] [place] [address] 92272 CO2 [Moles/Vol] 23 mmol/L Normal 21-31 [facility] Comment on above: Performed By: #### S URGP #### [facility] (DEFAULT) [address] [place] [address] 33914 Creatinine [Mass/Vol] 1.35 mg/dL High 0.50-1.20 [facility] Comment on above: Performed By: #### S URGP #### [facility] (DEFAULT) [address] [place] [address] 78238 GFR/1.73 sq M.predicted among non-blacks MDRD (S/P/Bld) [Vol rate/Area] 40 mL/min/{1.73_m2} Low >=60 [facility] Comment on above: Result Comment: Repo rted eGFR is based on the CKD-EPI 2020 equation using creatinine, age, and sex. Performed By: #### S URGP #### [facility] (DEFAULT) [address] [place] [address] 85876 Glucose [Mass/Vol] 151 mg/dL Normal Nonfastin -179 mg/dL; Fastin-99 [facility] Comment on above: Performed By: #### S URGP #### [facility] (DEFAULT) [address] [place] [address] 90955 Osmolality [Osmolality] 295 mosm/kg Normal 278-305 [facility] Comment on above: Performed By: #### S URGP #### [facility] (DEFAULT) [address] [place] [address] 54550 Potassium [Moles/Vol] 4.3 mmol/L Normal 3.5-5.0 [facility] Comment on above: Result Comment: Spec imen slightly hemolyzed. Potassium results may be falsey elevated by more than 0.5 mmol/L. Consider recollection. Performed By: #### S URGP #### [facility] (DEFAULT) [address] [place] [address] 98976 Sodium [Moles/Vol] 138 mmol/L Normal 135-145 [facility] Comment on above: Performed By: #### S URGP #### [facility] (DEFAULT) [address] [place] [address] 58435 Urea nitrogen [Mass/Vol] 18 mg/dL Normal 7-25 [facility] Comment on above: Performed By: #### S URGP #### [facility] (DEFAULT) [address] [place] [address] 74038 Urea nitrogen/Creatinine [Mass ratio] 13 mg/mg Normal [facility] Comment on above: Performed By: #### S URGP #### [facility] (DEFAULT) [address] [place] [address] CHEST WITH CONTRAST VASCU LAR TRAUMAon [...] have reviewed and approved this report. Normal [facility] CT Cervical spine WO contras ton 08-03-2024 RADIOLOGY RADIOLOGY [facility] CT Cervical spine WO contras tOrdered By: Alissa Chun on 08-03-2024 [facility] Work Phone: CT Chest W contrast Seth RADIOLOGY RADIOLOGY [facility] CT Chest W contrast IVOrdere d By: Kayla Newell on 08-03-2024 [facility] Work Phone: CT HEAD WITHOUT [...] since the MRI from earlier today Normal [facility] CT Head WO contraston 2024 Radiology Study observation (narrative) [facility] RADIOLOGY RADIOLOGY [facility] Radiology Study observation (narrative) [facility] CT ORBITS WITHOUT CONTRASTon 08-03-2024 CT ORBITS [...] basal ganglia hyperdensity concerning for hemorrhage. Normal [facility] CT Orbit WO contraston 08-03 RADIOLOGY RADIOLOGY [facility] CT SPINE CERVICAL WITHOUT CO [...] No evidence of acute fractures identified Normal [facility] EXTRA MICROon 08-03-2024 [facility] GLUCOSE POCon 08-03-2024 Glucose [Mass/Vol] 161 mg/dL 70 - 179 mg/dL [facility] POC Sample Type CAPBL [facility] IONIZED CALCIUM, WHOLE BLOOD Ordered By: Alejandra Ness on 08-03-2024 Calcium.ionized (Bld) [Moles/Vol] 4.24 mg/dL Low 4.60 - 5.30 mg/dL [facility] Interpretation and review of laboratory results Abnormal [facility] IONIZED CALCIUM, WHOLE BLOOD on 08-03-2024 ICA 4.24 mg/dL Low 4.60-5.30 [facility] Comment on above: Performed By: #### H [facility] #### [facility] (DEFAULT) [address] [place] [address] MAGNESIUMon 08-03-2024 Magnesium [Mass/Vol] 2.1 mg/dL 1.6 - 2 .6 mg/dL [facility] Magnesium [Mass/Vol] 2.1 mg/dL Normal 1.6-2.6 [facility] Comment on above: Performed By: #### S URGP #### [facility] (DEFAULT) [address] [place] [address] MR Brain WO contraston 08-03 RADIOLOGY RADIOLOGY [facility] Radiology Study observation (narrative) [facility] MR Cervical spine WO contras ton 08-03-2024 RADIOLOGY RADIOLOGY [facility] Radiology Study observation (narrative) [facility] MR Cervical spine WO contras tOrdered By: Kuldeep Tavares on 08-03-2024 [facility] Work Phone: MRI BRAIN WITHOUT [...] tiny 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 Normal [facility] MRI SPINE CERVICAL WITHOUT C [...] have reviewed and approved this report. Normal [facility] NT-PRO B-TYPE NATRIURETIC PE PTIDEon 08-03-2024 Interpretation and review of laboratory results Abnormal [facility] Natriuretic peptide.B prohormone N-Terminal IA [Mass/Vol] 1115 pg/mL High NINF - 540 pg/mL [facility] No Panel Informationon 08-03 RADIOLOGY RADIOLOGY [facility] Interpretation and review of laboratory results Normal [facility] No Panel InformationOrdered By: Richard Sánchez on 08-03-2024 [facility] Work Phone: PHOSPHATE, INORGANICon 08-03 Phosphate [Mass/Vol] 3.5 mg/dL 2.2 - 4 .6 mg/dL [facility] Phosphorous 3.5 mg/dL Normal 2.2-4.6 [facility] Comment on above: Performed By: #### S URGP #### [facility] (DEFAULT) [address] [place] [address] SCREEN: MRSA/MSSAOrdered By: Gail Collado on 08-03-2024 Interpretation and review of laboratory results Normal [facility] Methicillin Resistant S. Aureus By Pcr Negative Negative [facility] Staphylococcus Aureus By Pcr Negative Negative [facility] SODIUMon 08-03-2024 Interpretation and review of laboratory results Normal [facility] Sodium [Moles/Vol] 139 mmol/L 135 - 145 mmol/L [facility] Sodium [Moles/Vol] 139 mmol/L Normal 135-145 [facility] Comment on above: Order Comment: While on 3% Hypertonic Saline. Performed By: #### N AO ####[facility] (DEFAULT)[address] [place] [address] Interpretation and review of laboratory results Abnormal [facility] Sodium [Moles/Vol] 134 mmol/L Low 135 - 145 mmol/L [facility] Sodium [Moles/Vol] 134 mmol/L Low 135-145 [facility] Comment on above: Order Comment: While on 3% Hypertonic Saline. Performed By: #### H EMOGC #### [facility] (DEFAULT) [address] [place], [place] [address] XR ABDOMEN 1 VIEW PORTABLEon 08-03-2024 XR [...] proximal second portion of the duodenum. Normal [facility] XR Abdomen Single viewon RADIOLOGY RADIOLOGY [facility] Radiology Study observation (narrative) [facility] XR Abdomen Single viewOrdere d By: Huey Gibson on 08-03-2024 [facility] XR ELBOW RIGHT 2 VIEWSon XR ELBOW RIGHT 2 VIEWS EXAM: XR ELBOW RI GHT 2 VIEWS, XR HUMERUS RIGHT 2+ VIEWS, XR WRIST RIGHT 3+ VIEWS, 08/02/2024 23:24 PM (accession [id number]), 08/02/2024 23:24 PM (accession [id number]), 08/02/2024 23:23 PM (accession [id number]) COMPARISON: No prior studies available for comparison. [...] dislocation. IMPRESSION: No acute osseous abnormality. Normal [facility] XR HUMERUS RIGHT 2+ VIEWSon 08-03-2024 XR HUMERUS RIGHT 2+ VIEWS EXAM: XR ELBOW RIGHT 2 VIEWS, XR HUMERUS RIGHT 2+ VIEWS, XR WRIST RIGHT 3+ VIEWS, 08/02/2024 23:24 PM (accession [id number]), 08/02/2024 23:24 PM (accession [id number]), 08/02/2024 23:23 PM (accession [id number]) COMPARISON: No prior studies available for comparison. [...] dislocation. IMPRESSION: No acute osseous abnormality. Normal [facility] XR WRIST RIGHT 3+ VIEWSon XR WRIST RIGHT 3+ VIEWS EXAM: XR ELBOW R IGHT 2 VIEWS, XR HUMERUS RIGHT 2+ VIEWS, XR WRIST RIGHT 3+ VIEWS, 08/02/2024 23:24 PM (accession [id number]), 08/02/2024 23:24 PM (accession [id number]), 08/02/2024 23:23 PM (accession [id number]) COMPARISON: No prior studies available for comparison. [...] dislocation. IMPRESSION: No acute osseous abnormality. Normal [facility] 12 Lead EKGon 08-02-2024 12 Lead EKG [facility] [address] [place] [address] 12 Lead EKG 08/02/24 1309 MR#: [id number] Acct: [id number] Name: LINDSAY ACUNA Rep #: [id number] : 1945 78 From: Mj Benavides MD [...] ECG Confirmed by MAKAYLA LAWSON, MJ ([id number]), commercial production editor NAIMA BEARDEN ([id number]) on 08/05/2024 6:47:07 AM Referred By: Confirmed By: MJ BENAVIDES MD 08/05/24 0647 Date Mj Benavides MD CC: Dr. Pieter Morgan MD; Dr. Kameron Caruso MD Signed Normal [facility] Absolute lymphocyte countOrd ered By: Pieter Morgan on 08-02-2024 Lymphocytes Auto (Unsp spec) [#/Vol] 1.56 10*3/uL 0.83-4.51 [facility] Absolute neutrophil countOrd ered By: Pieter Morgan on 08-02-2024 Neutrophils (Bld) [#/Vol] 6.2 10*3/uL 2.0-7.7 [facility] Activated partial thrombopla stin time (aPTT) in platelet poor plasma by coagulation aOrdered By: Pieter Morgan on 08-02-2024 aPTT Coag (PPP) [Time] 28.4 s 24.1-36.2 [facility] Anion gap in Serum or Plasma Ordered By: Pieter Morgan on 08-02-2024 Anion gap [Moles/Vol] 12 mmol/L 5-15 [facility] Automated lymphocyte count a s percentage of total leukocytesOrdered By: Pieter Morgan on 08-02-2024 Lymphocytes/100 WBC Auto (Unsp spec) 17.9 % Low [facility] BUN/creatinine ratioOrdered By: Pieter Morgan on 08-02-2024 Urea nitrogen/Creatinine [Mass ratio] 11.6 mg/mg 03-03 [facility] Basic Metabolic Profile (BMP )on 08-02-2024 BUN/CRE 11.6 RATIO Normal 03-03 [facility] Comment on above: Performed By: #### L 300.4310, L501.4021, L300.3900, L500.2500, L100.0100 #### [facility] [address] [place], [address] Calcium [Mass/Vol] 9.0 mg/dL Normal 7.6-11.0 [facility] Comment on above: Performed By: #### L 300.4310, L501.4021, L300.3900, L500.2500, L100.0100 #### [facility] [address] [place], [address] Chloride [Moles/Vol] 98 mmol/L Normal 98-108 [facility] Comment on above: Performed By: #### L 300.4310, L501.4021, L300.3900, L500.2500, L100.0100 #### [facility] [address] [place], [address] CO2 [Moles/Vol] 22.0 mmol/L Normal 21.0-32.0 [facility] Comment on above: Performed By: #### L 300.4310, L501.4021, L300.3900, L500.2500, L100.0100 #### [facility] [address] [place], [address] Creatinine [Mass/Vol] 1.74 mg/dL High 0.70-1.20 [facility] Comment on above: Performed By: #### L 300.4310, L501.4021, L300.3900, L500.2500, L100.0100 #### [facility] [address] [place], [address] ECRCL 27.14 ml/min Low 50-250 [facility] Comment on above: Performed By: #### L 300.4310, L501.4021, L300.3900, L500.2500, L100.0100 #### [facility] [address] [place], [address] GAP 12 Normal 5-15 [facility] Comment on above: Performed By: #### L 300.4310, L501.4021, L300.3900, L500.2500, L100.0100 #### [facility] [address] [place], [address] GFR/1.73 sq M.predicted among non-blacks MDRD (S/P/Bld) [Vol rate/Area] 29 mL/min/{1.73_m2} Low >60 [facility] Comment on above: Result Comment: mL/m in/1.73m2 CKD-EPI Creatinine Equation (2020) Performed By: #### L 300.4310, L501.4021, L300.3900, L500.2500, L100.0100 #### [facility] [address] [place], [address] Glucose [Mass/Vol] 235 mg/dL High 70-99 [facility] Comment on above: Performed By: #### L 300.4310, L501.4021, L300.3900, L500.2500, L100.0100 #### [facility] [address] [place], [address] Potassium [Moles/Vol] 4.2 mmol/L Normal 3.3-5.1 [facility] Comment on above: Performed By: #### L 300.4310, L501.4021, L300.3900, L500.2500, L100.0100 #### [facility] [address] [place], [address] Sodium [Moles/Vol] 132 mmol/L Low 133-145 [facility] Comment on above: Performed By: #### L 300.4310, L501.4021, L300.3900, L500.2500, L100.0100 #### [facility] [address] [place], [address] Urea nitrogen [Mass/Vol] 20 mg/dL High 4-19 [facility] Comment on above: Performed By: #### L 300.4310, L501.4021, L300.3900, L500.2500, L100.0100 #### [facility] [address] [place], [address] Basophil percentageOrdered B y: Pieter Morgan on 08-02-2024 Basophils/100 WBC (Bld) 0.5 % 0-1 [facility] CBC W/Diff, Automatedon 07-14 Absolute Lymph 1.56 X10 3/uL Normal 0.83-4.51 [facility] Comment on above: Performed By: #### L 300.4310, L501.4021, L300.3900, L500.2500, L100.0100 #### [facility] [address] [place], [address] Absolute Neut 6.2 X10 3/uL Normal 2.0-7.7 [facility] Comment on above: Performed By: #### L 300.4310, L501.4021, L300.3900, L500.2500, L100.0100 #### [facility] [address] [place], [address] Basophils/100 WBC (Bld) 0.5 % Normal 0-1 [facility] Comment on above: Performed By: #### L 300.4310, L501.4021, L300.3900, L500.2500, L100.0100 #### [facility] [address] [place], [address] Eosinophils/100 WBC (Bld) 1.0 % Normal 0-5 [facility] Comment on above: Performed By: #### L 300.4310, L501.4021, L300.3900, L500.2500, L100.0100 #### [facility] [address] [place], [address] Erythrocyte distribution width (RBC) [Ratio] 13.3 % Normal 11.6-14.6 [facility] Comment on above: Performed By: #### L 300.4310, L501.4021, L300.3900, L500.2500, L100.0100 #### [facility] [address] [place], [address] Hematocrit (Bld) [Volume fraction] 42.0 % Normal 37-47 [facility] Comment on above: Performed By: #### L 300.4310, L501.4021, L300.3900, L500.2500, L100.0100 #### [facility] [address] [place], [address] Hemoglobin (Bld) [Mass/Vol] 13.8 g/dL Normal 12.0-15.0 [facility] Comment on above: Performed By: #### L 300.4310, L501.4021, L300.3900, L500.2500, L100.0100 #### [facility] [address] [place], [address] IG% 0.300 Normal 0.0-0.9 [facility] Comment on above: Result Comment: IG% - Immature Granulocytes (promyelocytes, myelocytes and metamyelocytes) > 1% indicates that a LEFT SHIFT is Present. Performed By: #### L 300.4310, L501.4021, L300.3900, L500.2500, L100.0100 #### [facility] [address] [place], [address] Lymphocytes/100 WBC (Bld) 17.9 % Low 19-41 [facility] Comment on above: Performed By: #### L 300.4310, L501.4021, L300.3900, L500.2500, L100.0100 #### [facility] [address] [place], [address] MCH (RBC) [Entitic mass] 30.3 pg Normal 27.0-32.0 [facility] Comment on above: Performed By: #### L 300.4310, L501.4021, L300.3900, L500.2500, L100.0100 #### [facility] [address] [place], [address] MCHC (RBC) [Mass/Vol] 32.9 g/dL Normal 32-36 [facility] Comment on above: Performed By: #### L 300.4310, L501.4021, L300.3900, L500.2500, L100.0100 #### [facility] [address] [place], [address] MCV (RBC) [Entitic vol] 92.1 fL Normal 81-99 [facility] Comment on above: Performed By: #### L 300.4310, L501.4021, L300.3900, L500.2500, L100.0100 #### [facility] [address] [place], [address] Monocytes/100 WBC (Bld) 8.9 % Normal 0-10 [facility] Comment on above: Performed By: #### L 300.4310, L501.4021, L300.3900, L500.2500, L100.0100 #### [facility] [address] [place], [address] Neutrophils/100 WBC (Bld) 71.4 % High 47-70 [facility] Comment on above: Performed By: #### L 300.4310, L501.4021, L300.3900, L500.2500, L100.0100 #### [facility] [address] [place], [address] Nucleated RBC (Bld) [#/Vol] 0 10*3/uL Normal 0-5 [facility] Comment on above: Performed By: #### L 300.4310, L501.4021, L300.3900, L500.2500, L100.0100 #### [facility] [address] [place], [address] Platelet mean volume (Bld) [Entitic vol] 10.7 fL Normal 6.2-12.0 [facility] Comment on above: Performed By: #### L 300.4310, L501.4021, L300.3900, L500.2500, L100.0100 #### [facility] [address] [place], [address] Platelets (Bld) [#/Vol] 214 10*3/uL Normal 150-450 [facility] Comment on above: Performed By: #### L 300.4310, L501.4021, L300.3900, L500.2500, L100.0100 #### [facility] [address] [place], [address] RBC (Bld) [#/Vol] 4.56 10*6/uL Normal 4.2-5.4 [facility] Comment on above: Performed By: #### L 300.4310, L501.4021, L300.3900, L500.2500, L100.0100 #### [facility] [address] [place], [address] RDW SD 45.3 fl High 35.1-43.9 [facility] Comment on above: Performed By: #### L 300.4310, L501.4021, L300.3900, L500.2500, L100.0100 #### [facility] [address] [place], [address] WBC (Bld) [#/Vol] 8.7 10*3/uL Normal 4.4-11.0 [facility] Comment on above: Performed By: #### L 300.4310, L501.4021, L300.3900, L500.2500, L100.0100 #### [facility] [address] [facility] [place], [address] CBC,PLATELETSon 08-02-2024 Erythrocyte distribution width (RBC) [Ratio] 13.3 % 10.8 - 14.9 % [facility] Hematocrit (Bld) [Volume fraction] 43.8 % 34.9 - 44.3 % [facility] Hemoglobin (Bld) [Mass/Vol] 14 g/dL 11.4 - 15.2 g/dL [facility] Interpretation and review of laboratory results Normal [facility] MCH (RBC) [Entitic mass] 29.4 pg 25.9 - 33.9 pg [facility] MCHC (RBC) [Mass/Vol] 32 g/dL 31.4 - 35.9 g/dL [facility] MCV (RBC) [Entitic vol] 92 fL 79.6 - 97.7 fL [facility] Platelet mean volume (Bld) [Entitic vol] 10.8 fL 8.5 - 12.2 fL [facility] Platelets (Bld) [#/Vol] 245 10*3/uL 150 - 393 K/uL [facility] RBC (Bld) [#/Vol] 4.76 10*6/uL [facility] WBC (Bld) [#/Vol] 8.16 10*3/uL 3.99 - 11.19 K/uL [facility] Hematocrit (Bld) [Volume fraction] 43.8 % Normal 34.9-44.3 [facility] Comment on above: Performed By: #### B LDCULT #### [facility] (DEFAULT) [address] [place] [address] 76703 Hemoglobin (Bld) [Mass/Vol] 14.0 g/dL Normal 11.4-15.2 [facility] Comment on above: Performed By: #### B LDCULT #### [facility] (DEFAULT) [address] [place] [address] 22282 MCV (RBC) [Entitic vol] 92.0 fL Normal 79.6-97.7 [facility] Comment on above: Performed By: #### B LDCULT #### [facility] (DEFAULT) [address] [place] [address] 38356 Mean Cell Hgb 29.4 pg Normal 25.9-33.9 [facility] Comment on above: Performed By: #### B LDCULT #### [facility] (DEFAULT) [address] [place] [address] 89430 Mean Cell Hgb Conc 32.0 g/dL Normal 31.4-35.9 [facility] Comment on above: Performed By: #### B LDCULT #### [facility] (DEFAULT) [address] [place] [address] 69606 Platelet mean volume (Bld) [Entitic vol] 10.8 fL Normal 8.5-12.2 [facility] Comment on above: Performed By: #### B LDCULT #### [facility] (DEFAULT) [address] [place] [address] 23584 Platelets (Bld) [#/Vol] 245 10*3/uL Normal 150-393 [facility] Comment on above: Performed By: #### B LDCULT #### [facility] (DEFAULT) [address] [place] [address] RBC (Bld) [#/Vol] 4.76 10*6/uL Normal 3.91-5.04 [facility] Comment on above: Performed By: #### B LDCULT #### [facility] (DEFAULT) [address] [place] [address] RBC Distribution 13.3 % Normal 10.8-14.9 [facility] Comment on above: Performed By: #### B LDCULT #### [facility] (DEFAULT) [address] [place] [address] WBC (Bld) [#/Vol] 8.16 10*3/uL Normal 3.99-11.19 [facility] Comment on above: Performed By: #### B LDCULT #### [facility] (DEFAULT) [address] [place] [address] 86044 CHEM 7 (LYTES,BUN,CREA,GLUC) on 08-02-2024 Anion gap [Moles/Vol] 16 mmol/L 7 - 17 mmol/L [facility] Chloride [Moles/Vol] 105 mmol/L 98 - 10 8 mmol/L [facility] CO2 [Moles/Vol] 22 mmol/L 21 - 31 mmol/L [facility] Creatinine [Mass/Vol] 1.37 mg/dL High 0.50 - 1.20 mg/dL [facility] eGFR, CKD-EPI, Female 39 Low - PINF [facility] Glucose [Mass/Vol] 210 mg/dL High 70 - 179 mg/dL [facility] Osmolality Calc [Osmolality] 299 [facility] Potassium [Moles/Vol] 3.7 mmol/L 3.5 - 5.0 mmol/L [facility] Sodium [Moles/Vol] 139 mmol/L 135 - 145 mmol/L [facility] Urea nitrogen [Mass/Vol] 18 mg/dL 7 - 25 mg/dL [facility] Urea nitrogen/Creatinine [Mass ratio] 13 mg/mg [facility] Anion gap [Moles/Vol] 16 mmol/L Normal 7-17 [facility] Comment on above: Performed By: #### H [facility] #### [facility] (DEFAULT) [address] [place] [address] 51999 Chloride [Moles/Vol] 105 mmol/L Normal 98-108 [facility] Comment on above: Performed By: #### H EMO #### [facility] (DEFAULT) [address] [place] [address] 30658 CO2 [Moles/Vol] 22 mmol/L Normal 21-31 [facility] Comment on above: Performed By: #### H [facility] #### [facility] (DEFAULT) [address] [place] [address] 08342 Creatinine [Mass/Vol] 1.37 mg/dL High 0.50-1.20 [facility] Comment on above: Performed By: #### H [facility] #### [facility] (DEFAULT) [address] [place] [address] 96309 GFR/1.73 sq M.predicted among non-blacks MDRD (S/P/Bld) [Vol rate/Area] 39 mL/min/{1.73_m2} Low >=60 [facility] Comment on above: Result Comment: Repo rted eGFR is based on the CKD-EPI 2020 equation using creatinine, age, and sex. Performed By: #### H [facility] #### [facility] (DEFAULT) [address] [place] [address]790 Glucose [Mass/Vol] 210 mg/dL High Nonfastin -179 mg/dL; Fastin-99 [facility] Comment on above: Performed By: #### H EMOGC #### [facility] (DEFAULT) [address] [place] [address] 28013 Osmolality [Osmolality] 299 mosm/kg Normal 278-305 [facility] Comment on above: Performed By: #### H EMO #### [facility] (DEFAULT) [address] [place] [address] 15237 Potassium [Moles/Vol] 3.7 mmol/L Normal 3.5-5.0 [facility] Comment on above: Performed By: #### H EMO #### [facility] (DEFAULT) [address] [place] [address] Sodium [Moles/Vol] 139 mmol/L Normal 135-145 [facility] Comment on above: Performed By: #### H EMO #### [facility] (DEFAULT) [address] [place] [address] Urea nitrogen [Mass/Vol] 18 mg/dL Normal 7-25 [facility] Comment on above: Performed By: #### H EMO #### [facility] (DEFAULT) [address] [place] [address] Urea nitrogen/Creatinine [Mass ratio] 13 mg/mg Normal [facility] Comment on above: Performed By: #### H EMO #### [facility] (DEFAULT) [address] [place] [address] ABDOMEN/PELVIS WITH CONTR AST VASCULAR TRAUMAon [...] grade: None. Kidney trauma grade: None. Normal [facility] CT Abdomen and Pelvis W cont rast Seth 08-02-2024 RADIOLOGY RADIOLOGY [facility] CT Abdomen and Pelvis W cont rast IVOrdered By: Edson Head on 08-02-2024 [facility] Work Phone: CT Cervical spine WO contras ton 08-02-2024 Radiology Study observation (narrative) [facility] CT Orbit WO contraston 08-02 Radiology Study observation (narrative) [facility] Carbon dioxide, total [Moles /volume] in Central venous bloodOrdered By: Pieter Morgan on 08-02-2024 CO2 [Moles/Vol] 22.0 mmol/L 21.0-32.0 [facility] Chloride assayOrdered By: Racheal Morgan on 08-02-2024 Chloride [Moles/Vol] 98 mmol/L 98-108 [facility] Emergency Department Summary on 08-02-2024 Emergency Department Summary [facility] Medical Records Department [address] [place] [address] Emergency Department Summary 08/02/24 MR#: [id number] Acct: [id number] Name: LINDSAY ACUNA NOAH Rep #: [id number] : 1945 78 From: Pieter Morgan MD [...] she is "on round 2." [facility] Medical History Paroxysmal atrial fibrillation with RVR [...] normal respir (more content not included)... Normal [facility] Eosinophil percentageOrdered By: Pieter Morgan on 08-02-2024 Eosinophils/100 WBC (Bld) 1.0 % 0-5 [facility] Erythrocyte distribution wid th ratioOrdered By: Pieter Morgan on 08-02-2024 Erythrocyte distribution width (RBC) [Ratio] 13.3 % 11.6-14.6 [facility] Erythrocyte distribution wid th standard deviationOrdered By: Pieter Morgan on 08-02-2024 Erythrocyte distribution width (RBC) [Entitic vol] 45.3 fL High 35.1-43.9 [facility] Erythrocyte distribution width (RBC) [Ratio] 45.3 fl High 35.1-43.9 [facility] Estimation of creatinine mackenzie aranceOrdered By: Pieter Morgan on 08-02-2024 Estimated Creatinine Clearance Calc 27.14 ml/min Low 50-250 [facility] GFR/1.73 sq M.predicted lana g non-blacks MDRD (S/P/Bld) [Vol rate/Area]Ordered By: Pieter Morgan on 08-02-2024 Estimated GFR (MDRD) Non-Af Amer 29 Low >60 [facility] Comment on above: mL/min/1.73m2 CKD-EP I Creatinine Equation (2020) Glomerular filtration rate ( GFR) estimation/1.73 sq m using serum, plasma, or whole bOrdered By: Pieter Morgan on 08-02-2024 GFR/1.73 sq M.predicted among non-blacks MDRD (S/P/Bld) [Vol rate/Area] 29 mL/min/{1.73_m2} Low >60 [facility] Comment on above: mL/min/1.73m2 CKD-EP I Creatinine Equation (2020) HEMOGLOBIN A1Con 08-02-2024 Average glucose Estimated from glycated hemoglobin (Bld) [Mass/Vol] 177 mg/dL [facility] HbA1c (Bld) [Mass fraction] 7.8 % High 4.7 - 5.6 % [facility] Interpretation and review of laboratory results Abnormal [facility] Glucose [Mass/Vol] 177 mg/dL Normal [facility] Comment on above: Performed By: #### H EMO #### [facility] (DEFAULT) [address] [place] [address] 55852 Hemoglobin A1C HPLC 7.8 % High 4.7-5.6 [facility] Comment on above: Performed By: #### H EMO #### [facility] (DEFAULT) [address] [place] [address] 17083 HEPATIC FUNCTION PANELon Albumin [Mass/Vol] 3.5 g/dL 3.5 - 5.0 g/dL [facility] ALP [Catalytic activity/Vol] 117 U/L 32 - 126 U/L [facility] ALT [Catalytic activity/Vol] 10 U/L 9 - 48 U/L [facility] AST [Catalytic activity/Vol] 17 U/L 10 - 39 U/L [facility] Bilirubin [Mass/Vol] 0.6 mg/dL NINF - 1.5 mg/dL [facility] Bilirubin.direct [Mass/Vol] 0.1 mg/[facility] mg/dL [facility] Protein [Mass/Vol] 6.3 g/dL Low 6.4 - 8.3 g/dL [facility] Albumin [Mass/Vol] 3.5 g/dL Normal 3.5-5.0 [facility] Comment on above: Performed By: #### H [facility] #### [facility] (DEFAULT) [address] [place] [address] 65235 ALP [Catalytic activity/Vol] 117 U/L Normal 32-126 [facility] Comment on above: Performed By: #### H EMO #### [facility] (DEFAULT) [address] [place] [address] ALT [Catalytic activity/Vol] 10 U/L Normal 9-48 [facility] Comment on above: Performed By: #### H EMO #### [facility] (DEFAULT) [address] [place] [address] 05158 AST [Catalytic activity/Vol] 17 U/L Normal 10-39 [facility] Comment on above: Performed By: #### H EMO #### [facility] (DEFAULT) [address] [place] [address] 25167 Bilirubin [Mass/Vol] 0.6 mg/dL Normal <1.5 [facility] Comment on above: Performed By: #### H EMOGC #### [facility] (DEFAULT) [address] [place] [address] 52560 Bilirubin.indirect [Mass/Vol] 0.1 mg/dL Normal <0.3 [facility] Comment on above: Performed By: #### H EMOGC #### [facility] (DEFAULT) [address] [place] [address] 54079 Protein [Mass/Vol] 6.3 g/dL Low 6.4-8.3 [facility] Comment on above: Performed By: #### H [facility] #### [facility] (DEFAULT) [address] [place] [address] 70601 HIGH SENSITIVITY TROPONIN I - SINGLE ORDERon 08-02-2024 Interpretation and review of laboratory results Normal [facility] Troponin I.cardiac High sensitivity method [Mass/Vol] 9 ng/L NINF - 34 ng/L [facility] hs-Troponin I 9 ng/L Normal <34 [facility] Comment on above: Order Comment: [...] bottle. Performed By: #### B LDCULT #### [facility] (DEFAULT) [address] [place] [address] 88954 Hematocrit Auto (Bld) [Volum e fraction]Ordered By: Pieter Morgan on 08-02-2024 Hematocrit (Bld) [Volume fraction] 42.0 % 37-47 [facility] Hemoglobin measurementOrdere d By: Pieter Cathy on 08-02-2024 Hemoglobin (Bld) [Mass/Vol] 13.8 g/dL 12.0-15.0 [facility] Immature granulocytes/100 WB C Auto (Bld)Ordered By: Pieter Morgan on 08-02-2024 Immature granulocytes/100 WBC (Bld) 0.300 % 0.0-0.9 [facility] Comment on above: IG% - Immature Granu locytes (promyelocytes, myelocytes and metamyelocytes) > 1% indicates that a LEFT SHIFT is Present. Influenza virus A and B and SARS-CoV-2 (COVID-19) and Respiratory syncytial virus RNAOrdered By: Pieter Cathy on 08-02-2024 SARS-CoV-2 (COVID-19) RNA CHUCKY+probe Ql (Unsp spec) [facility] International normalized rat io (INR) calculationOrdered By: Pieter Morgan on 08-02-2024 INR Coag (Bld) [Relative time] 1.1 {INR} [facility] L499.0042on 08-02-2024 Trop T High Sen Normal <=14 [facility] Comment on above: Result Comment: Canc elled via OM: Order cancelled - Patient discharged Performed By: #### L 499.0042 ####[facility] [address] [place], [address] L499.0043on 08-02-2024 Trop T High Sen Normal <=14 [facility] Comment on above: Result Comment: Canc elled via OM: Order cancelled - Patient discharged Performed By: #### L 499.0043 ####[facility] [address] [place], [address] L501.4021on 08-02-2024 Trop T High Sen 38 ng/L High <=14 [facility] Comment on above: Performed By: #### L 300.4310, L501.4021, L300.3900, L500.2500, L100.0100 ####[facility] [address] [place], [place], [id number] LIPID PANEL WITH REFLEX TO M [place] LDLon 08-02-2024 Cholesterol [Mass/Vol] 141 mg/dL NINF - 200 mg/dL [facility] Cholesterol in HDL [Mass/Vol] 38 mg/dL Low 40 - PINF mg/dL [facility] Cholesterol in LDL [Mass/Vol] 84 mg/dL 0 - 99 mg/dL [facility] Cholesterol non HDL [Mass/Vol] 103 mg/dL NINF - 130 mg/dL [facility] Cholesterol.total/Alta sterol in HDL [Mass ratio] 3.7 {ratio} NINF - 4.5 [facility] Triglyceride [Mass/Vol] 96 mg/dL NINF - 150 mg/dL [facility] Calculated LDL Cholesterol 84 mg/dL Normal 0-99 [facility] Comment on above: Result Comment: [<10 0 mg/dL: Optimal] [100-129 mg/dL: Near Optimal] [130-159 mg/dL: Borderline High] [160-189 mg/dL: High] [>189 mg/dL: Very High] Performed By: #### H [facility] #### [facility] (DEFAULT) [address] [place] [address] 94811 Cholesterol [Mass/Vol] 141 mg/dL Normal <200 [facility] Comment on above: Result Comment: [<20 0 mg/dL: Desirable] [200-239 mg/dL: Borderline High] [>239 mg/dL: High] Performed By: #### H [facility] #### [facility] (DEFAULT) [address] [place] [address] 12492 Cholesterol in HDL [Mass/Vol] 38 mg/dL Low >=40 [facility] Comment on above: Result Comment: [<40 mg/dL: Low (High Risk)] [>59 mg/dL: High (Low Risk)] Performed By: #### H EMO #### [facility] (DEFAULT) [address] [place] [address] 05621 Non HDL Cholesterol 103 mg/dL Normal <130 [facility] Comment on above: Performed By: #### H [facility] #### [facility] (DEFAULT) [address] [place] [address] 87582 Total Cholesterol/HDL Ratio 3.7 Normal <4.5 [facility] Comment on above: Performed By: #### H [facility] #### [facility] (DEFAULT) [address] [place] [address] 29423 Triglyceride [Mass/Vol] 96 mg/dL Normal <150 [facility] Comment on above: Result Comment: [<15 0 mg/dL: Desirable] [150-199 mg/dL: Borderline] [200-499 mg/dL: High] [>500 mg/dL: Very High] Performed By: #### H [facility] #### [facility] (DEFAULT) [address] [place] [address] 68919 Lymphocytes Auto (Unsp spec) [#/Vol]Ordered By: Pieter Morgan on 08-02-2024 Lymphocytes (Bld) [#/Vol] 1.56 10*3/uL 0.83-4.51 [facility] Lymphocytes/100 WBC Auto (Un sp spec)Ordered By: Pieter Morgan on 08-02-2024 Lymphocytes/100 WBC (Bld) 17.9 % Low 19-41 [facility] M100.678on 08-02-2024 M100.678 Pending SARS-CoV-2 (COVID 19) Negative INFLUENZA A Negative INFLUENZA B Negative RSV PCR Negative Normal [facility] Comment on above: Performed By: #### M 100.678 #### [facility] [address] [place], [place], [id number] MAGNESIUMon 08-02-2024 Magnesium [Mass/Vol] 1.2 mg/dL Low 1.6 - 2 .6 mg/dL [facility] Magnesium [Mass/Vol] 1.2 mg/dL Low 1.6-2.6 [facility] Comment on above: Performed By: #### H [facility] #### [facility] (DEFAULT) [address] [place] [address] MCV (mean corpuscular volume ) determinationOrdered By: Pieter Morgan on 08-02-2024 MCV (RBC) [Entitic vol] 92.1 fL 81-99 [facility] Mean corpuscular hemoglobin (MCH) determinationOrdered By: Pieter Morgan on 08-02-2024 MCH (RBC) [Entitic mass] 30.3 pg 27.0-32.0 [facility] Mean corpuscular hemoglobin concentration (MCHC) determinationOrdered By: Pieter Morgan on 08-02-2024 MCHC (RBC) [Mass/Vol] 32.9 g/dL 32-36 [facility] Mean platelet volume determi nationOrdered By: Pieter Morgan on 08-02-2024 Platelet mean volume (Bld) [Entitic vol] 10.7 fL 6.2-12.0 [facility] Monocyte percentageOrdered B y: Pieter Morgan on 08-02-2024 Monocytes/100 WBC (Bld) 8.9 % 0-10 [facility] NT-PRO B-TYPE NATRIURETIC PE PTIDEon 08-02-2024 Natriuretic peptide B (Bld) [Mass/Vol] 1115 pg/mL High <=540 [facility] Comment on above: Performed By: #### H [facility] #### [facility] (DEFAULT) [address] [place] [address] Neutrophil percentageOrdered By: Pieter Morgan on 08-02-2024 Neutrophils/100 WBC (Bld) 71.4 % High 47-70 [facility] No Panel Informationon 08-02 Radiology Study observation (narrative) [facility] Interpretation and review of laboratory results Abnormal [facility] No Panel InformationOrdered By: Pieter Morgan on 08-02-2024 Troponin T High Sensitivity 38 ng/L High <14 [facility] Nucleated red blood cell per centageOrdered By: Pieter Morgan on 08-02-2024 Nucleated RBC/100 WBC (Bld) [Ratio] 0 % 0-5 [facility] PT,INR,PTTon 08-02-2024 aPTT Coag (PPP) [Time] 26.9 s [facility] INR Coag (Bld) [Relative time] 1.1 {INR} 0.9 - 1.1 [facility] Interpretation and review of laboratory results Normal [facility] PT Coag (PPP) [Time] 13.9 s [facility] Coag (Bld) [Time] 26.9 s Normal 24.0-34.3 [facility] Comment on above: Performed By: #### P TPTT ####[facility] (DEFAULT)[address] [place] [address] INR Coag (PPP) [Relative time] 1.1 {INR} Normal 0.9-1.1 [facility] Comment on above: Performed By: #### P TPTT ####[facility] (DEFAULT)[address] [place] [address] PT Coag (PPP) [Time] 13.9 s Normal 11.9-14.2 [facility] Comment on above: Performed By: #### P TPTT ####[facility] (DEFAULT)[address] [place] [address] Partial Thromboplast Timeon 08-02-2024 aPTT Coag (Bld) [Time] 28.4 s Normal 24.1-36.2 [facility] Comment on above: Performed By: #### L 300.4310, L501.4021, L300.3900, L500.2500, L100.0100 #### [facility] [address] [place], [place], [id number] Platelet countOrdered By: Racheal Morgan on 08-02-2024 Platelets (Bld) [#/Vol] 214 10*3/uL 150-450 [facility] Potassium (Unsp spec) [Mass/ Vol]Ordered By: Pieter Morgan on 08-02-2024 Potassium [Moles/Vol] 4.2 mmol/L 3.3-5.1 [facility] Potassium measurement (mass/ volume)Ordered By: Pieter Morgan on 08-02-2024 Potassium (Unsp spec) [Mass/Vol] 4.2 mmol/L 3.3-5.1 [facility] Prothrombin Time w/INRon INR Coag (PPP) [Relative time] 1.1 {INR} Normal [facility] Comment on above: Performed By: #### L 300.4310, L501.4021, L300.3900, L500.2500, L100.0100 #### [facility] [address] [place], [address] PT Coag (PPP) [Time] 14.1 s Normal 11.7-14.9 [facility] Comment on above: Performed By: #### L 300.4310, L501.4021, L300.3900, L500.2500, L100.0100 #### [facility] [address] [place], [place], [address] Prothrombin timeOrdered By: Pieter Morgan on 08-02-2024 PT Coag (PPP) [Time] 14.1 s 11.7-14.9 [facility] RBC Auto (Bld) [#/Vol]Ordere d By: Pieter Cathy on 08-02-2024 RBC (Bld) [#/Vol] 4.56 10*6/uL 4.2-5.4 [facility] SCREEN: MRSA/MSSAon 08-03-19 25 Methicillin Resistant S. Aureus By Pcr Negative Normal Negative [facility] Comment on above: Order Comment: [...] by the Clinical Microbiology Laboratory at [facility]. It has not been cleared or approved by the FDA.The laboratory is regulated under CLIA as qualified to perform high-complexity testing. This test is used for clinical purposes. It should not be regarded as investigational or for research. Performed By: #### T YPEC #### [facility] (DEFAULT) [address] [address] Staphylococcus Aureus By Pcr Negative Normal Negative [facility] Comment on above: Order Comment: [...] by the Clinical Microbiology Laboratory at [facility]. It has not been cleared or approved by the FDA.The laboratory is regulated under CLIA as qualified to perform high-complexity testing. This test is used for clinical purposes. It should not be regarded as investigational or for research. Performed By: #### T YPEC #### [facility] (DEFAULT) [address] [address] STROKE Brain/Head without Co nton 08-02-2024 STROKE Brain/Head without Cont [facility] Services [address] [place] [address] [id number] STROKE Brain/Head without Cont MR#: [id number] Acct: [id number] Name: LINDSAY ACUNA Rep #: [id number] : 1945 F 78 From: Kameron Cardoso MD PCP: Dr. Kameron Caruso MD Status: REG ER Study: STROKE Brain/Head without Cont Date of Exam: 0 08/02/24 Exam# [id number] Ordering Dr: Pieter Morgan MD EXAM: CT [...] Pieter Morgan MD; Dr. Kameron Caruso MD Switch Cleaner: Signed Normal [facility] STROKE CTA Head AND Neck W/C onon 08-02-2024 STROKE CTA Head AND Neck W/Con [facility] [address] [place] [address] STROKE CTA Head AND Neck W/Con MR#: [id number] Acct: [id number] Name: LINDSAY ACUNA Rep #: [id number] : 1945 F 78 From: August ibrahim MD PCP: Dr. Kameron Caruso MD Status: REG ER Study: STROKE CTA Head AND Neck W/Con Date of Exam: 0 08/02/24 Exam# [id number] Ordering Dr: Pieter Morgan MD PROCEDURE: STROKE [...] impression: No significant stenosis seen. Reading Location: [place] [address] CC: Dr. Pieter Morgan MD; Dr. Kameron Caruso MD Switch Cleaner: Signed Normal [facility] Serum creatinine measurement (mass/volume)Ordered By: Pieter Morgan on 08-02-2024 Creatinine [Mass/Vol] 1.74 mg/dL High 0.70-1.20 [facility] Serum glucose measurement (m ass/volume)Ordered By: Pieter Morgan on 08-02-2024 Glucose [Mass/Vol] 235 mg/dL High 70-99 [facility] [facility] Serum or plasma calcium dayna urement (mass/volume)Ordered By: Pieter Morgan on 08-02-2024 Calcium [Mass/Vol] 9.0 mg/dL 7.6-11.0 [facility] Serum or plasma urea nitroge n measurement (mass/volume)Ordered By: Pieter Morgan on 08-02-2024 Urea nitrogen [Mass/Vol] 20 mg/dL High 4-19 [facility] Sodium levelOrdered By: Evert Morgan on 08-02-2024 Sodium [Moles/Vol] 132 mmol/L Low 133-145 [facility] TSH W/FT4 REFLEXon Interpretation and review of laboratory results Normal [facility] TSH Qn 1.662 m[IU]/L [facility] TSH 1.662 uIU/mL Normal 0.550-4.780 [facility] Comment on above: Performed By: #### X M #### [facility] (DEFAULT) [address] [place] [address] TYPE AND SCREENon 08-02-2024 ABO/RH(D) TYPE Negative [facility] Specimen Expiration 08/05/2024 23:59 [facility] ABO/RH(D) TYPE Negative Normal [facility] Comment on above: Performed By: #### X M #### [facility] (DEFAULT) [address] [place] [address] Specimen Expiration 08/05/2024 23:59 Normal [facility] Comment on above: Performed By: #### X M #### [facility] (DEFAULT) [address] [place] [address] URINALYSIS REFLEX TO CULTURE PERFORMABLEOrdered By: Namita De La Cruz on 08-02-2024 Appearance (U) Clear Clear [facility] Bacteria LM Ql (Urine sed) PRESENT Abnormal ABSENT [facility] Color (U) Yellow Yellow [facility] Epithelial cells.squamous LM Ql (Urine sed) 0-2/hpf 0-2/hpf, 3-5/hpf = 1+ [facility] Glucose Test strip (U) [Mass/Vol] 500 mg/dL Abnormal Negative [facility] Interpretation and review of laboratory results Abnormal [facility] Ketones (U) [Mass/Vol] Negative Negative [facility] Leukocyte esterase Test strip Ql (U) Moderate Abnormal Negative [facility] Nitrite Ql (U) Negative Negative [facility] pH (U) 6.5 [pH] 5.0 - 7.0 [facility] Protein (U) [Mass/Vol] Negative Negative [facility] RBC (U) [#/Vol] Small Abnormal Negative [facility] RBC LM.HPF (Urine sed) [#/Area] 3-5 Abnormal [facility] Specific gravity (U) [Rel density] 1.022 1.001 - 1.035 [facility] Urobilinogen (U) [Mass/Vol] 0.2 E.U./dL 0.2 E.U/dL, 1.0 E.U/dL [facility] WBC LM.HPF (Urine sed) [#/Area] /[HPF] Abnormal [facility] URINALYSIS REFLEX TO CULTURE PERFORMABLEon 08-02-2024 Appearance (U) Clear Normal Clear [facility] Comment on above: Order Comment: For i ndwelling catheters, specimen collection is acceptable on catheter day 1 and 2 only. ? Performed By: #### U [id number] #### [facility] (DEFAULT) [address] [place] [address] Bacteria PRESENT Abnormal ABSENT [facility] Comment on above: Order Comment: For i ndwelling catheters, specimen collection is acceptable on catheter day 1 and 2 only. ? Performed By: #### U [id number] #### [facility] (DEFAULT) [address] [place] [address] Blood Urine Small Abnormal Negative [facility] Comment on above: Order Comment: For i ndwelling catheters, specimen collection is acceptable on catheter day 1 and 2 only. ? Performed By: #### U [id number] #### [facility] (DEFAULT) [address] [place] [address] Color (U) Yellow Normal Yellow [facility] Comment on above: Order Comment: For i ndwelling catheters, specimen collection is acceptable on catheter day 1 and 2 only. ? Performed By: #### U [id number] #### [facility] (DEFAULT) [address] [place] [address] Glucose Ql (U) 500 mg/dL Abnormal Negative [facility] Comment on above: Order Comment: For i ndwelling catheters, specimen collection is acceptable on catheter day 1 and 2 only. ? Performed By: #### U [id number] #### [facility] (DEFAULT) [address] [place] [address] Ketones Ql (U) Negative Normal Negative [facility] Comment on above: Order Comment: For i ndwelling catheters, specimen collection is acceptable on catheter day 1 and 2 only. ? Performed By: #### U [id number] #### [facility] (DEFAULT) [address] [place] [address] Leukocyte esterase Test strip Ql (U) Moderate Abnormal Negative [facility] Comment on above: Order Comment: For i ndwelling catheters, specimen collection is acceptable on catheter day 1 and 2 only. ? Performed By: #### U [id number] #### [facility] (DEFAULT) [address] [place] [address] Nitrites Urine Negative Normal Negative [facility] Comment on above: Order Comment: For i ndwelling catheters, specimen collection is acceptable on catheter day 1 and 2 only. ? Performed By: #### U [id number] #### [facility] (DEFAULT) [address] [place] [address] pH (U) 6.5 [pH] Normal 5.0-7.0 [facility] Comment on above: Order Comment: For i ndwelling catheters, specimen collection is acceptable on catheter day 1 and 2 only. ? Performed By: #### U [id number] #### [facility] (DEFAULT) [address] [place] [address] Protein Urine Negative Normal Negative [facility] Comment on above: Order Comment: For i ndwelling catheters, specimen collection is acceptable on catheter day 1 and 2 only. ? Performed By: #### U [id number] #### [facility] (DEFAULT) [address] [address] RBC Urine 3-5 Abnormal 0-2 [facility] Comment on above: Order Comment: For i ndwelling catheters, specimen collection is acceptable on catheter day 1 and 2 only. ? Performed By: #### U [id number] #### [facility] (DEFAULT) [address] [address] Specific [place] Urine 1.022 Normal 1.001-1.035 O [facility] Comment on above: Order Comment: For i ndwelling catheters, specimen collection is acceptable on catheter day 1 and 2 only. ? Performed By: #### U [id number] #### [facility] (DEFAULT) [address] [address] Squamous/Epithelial Cells, Urine 0-2/hpf Normal 0-2/hpf, 3-5/hpf = 1+ [facility] Comment on above: Order Comment: For i ndwelling catheters, specimen collection is acceptable on catheter day 1 and 2 only. ? Performed By: #### U [id number] #### [facility] (DEFAULT) [address] [address] Urobilinogen Urine 0.2 E.U./dL Normal 0.2 E.U/d L, 1.0 E.U/dL [facility] Comment on above: Order Comment: For i ndwelling catheters, specimen collection is acceptable on catheter day 1 and 2 only. ? Performed By: #### U [id number] #### [facility] (DEFAULT) [address] [address] WBC LM.HPF (Urine sed) [#/Area] /[HPF] Abnormal 0 - 5 [facility] Comment on above: Order Comment: For i ndwelling catheters, specimen collection is acceptable on catheter day 1 and 2 only. ? Performed By: #### U [id number] #### [facility] (DEFAULT) [address] [address] VON WILLEBRAND FACTOR AGon 0 08-02-2024 Von Willebrand Factor Antigen 230 % High 50-180 [facility] Comment on above: Performed By: #### H [facility] #### [facility] (DEFAULT) [address] [place] [address] White blood cell (WBC) count Ordered By: Pieter Morgan on 08-02-2024 WBC (Bld) [#/Vol] 8.7 10*3/uL 4.4-11.0 [facility] XR Elbow - right 2 [facility] 0 08-02-2024 Radiology Study observation (narrative) [facility] XR Humerus - right [facility] 0 08-02-2024 Radiology Study observation (narrative) [facility] XR Wrist - right 3 [facility] 0 08-02-2024 Radiology Study observation (narrative) [facility] aPTT Coag (PPP) [Time]Ordere d By: Pieter Morgan on 08-02-2024 aPTT Coag (Bld) [Time] 28.4 s 24.1-36.2 [facility] CNPNon 07-03-2024 CNPN Telephone (FAMPWS) LINDSAY ACUNA ([id number]) 1945 F Date Time Provider Department 07/03/24 [...] calling: self Call patient at: on cell [phone] (home) [phone] (cell) Was an appointment scheduled: No Closing statement: Results or non-symptom based questions: Thank you for calling [facility], your call will be returned [...] Encounter Status:Closed by MJ GLOVER on 07/03/24 [facility] [place] 07-02-2024 [facility] Telephone (KnexxLocalWS) LINDSAY ACUNA ([id number]) 1945 F Date Time Provider Department 07/02/24 KAMERON CARUSO [facility] During your visit today, we recorded the following information about you: Katia Álvarez RN 07/02/2024 11:57 AM Signed Patient calls and is requesting Cardiology referral to be faxed to [facility]. Faxed referral as [...] Encounter Status:Closed by KATIA ÁLVAREZ on 07/02/24 [facility] 06-28-2024 CNPN Telephone (FAMPTW) LINDSAY ACUNA ([id number]) 1945 F Date Time Provider Department 06/28/24 [...] calling: self Call patient at: on cell [phone] (home) [phone] (cell) Was an appointment scheduled: No [facility] Adenike Walton MA 06/28/2024 3:08 PM [...] by BRET ARAMBULA on 07/01/24 [facility] CNOVon 06-26-2024 CNOV Office Visit (MILTONWS ) LINDSAY ACUNA ([id number]) 1945 F Date Time Provider Department 06/26/24 9:40 AM [facility] GLASGOW During your visit today, we recorded the following information about you: Pulse Respiration Blood pressure Weight 93/minute 16/minute 144/88 78.9 kg Emma Glasgow APRN.ORDER CONTROL CLERK BLOOD BANK 06/26/2024 12:37 PM Signed This is a [...] times daily Dx: E11.29 Insulin: No lancets (BringShareTOUCH DELICA PLUS LANCET) 30 gauge Test blood [...] swelling RESP (more content not included)... Normal [facility] [place] 06-24-2024 [facility] Telephone (FAMPWS) LINDSAY ACUNA ([id number]) 1945 F Date Time Provider Department 06/24/24 [...] daily with breakfast. - blood sugar diagnostic (InfraSearchUCH ULTRA TEST) test strip Test Blood Sugar [...] by KAMERON CARUSO on 06/24/24 [facility] LIND[facility] ([id number]) 1945 F Date Time Provider Department 06/11/24 [...] Encounter Status:Closed by NAIMA MARSHALL on 06/11/24 [facility] ECHOon 06-11-2024 Echocardiography Echocardiography Report: Transthoracic Echo [facility] Date of service: 06/11/2024 8:52:28 AM ASSEMBLER Ordering physician: KAMERON CARUSO Indication: Atrial fibrillation Technologist: Katia Du [facility] Interpreting physician: David Herndon MD [...] * * * Final * * * [employer] Image : [id number] [id number] [facility] LINDSAY ACUNA ([id number]) 1945 F Date Time Provider Department 06/10/24 [facility] During your visit today, we recorded [...] daily Dx: E11.29 Insulin: No - lancets (BringShareTOUCH DELICA PLUS LANCET) 30 gauge Test blood [...] Encounter Statu (more content not included)... Normal [facility] CNOVon 05-31-2024 CNOV Office Visit (FAMPWS ) LINDSAY ACUNA ([id number]) 1945 F Date Time Provider Department 05/31/24 [...] and Amaryl 2 mg daily. Follows with [facility]. Thyroid: Taking Synthroid 75 mcg daily. [...] past year, follows with Dr. Park at [facility]. Past medical history, appointments, medications, allergies [...] Social Hi (more content not included)... Normal [facility] [id number] 05-31-2024 ECG01 Ventricular Rate : 1 34 BPM QRS Duration : 82 ms Q-T Interval : 324 ms QTC Calculation(Bazett) : 483 ms Calculated R Cranford : 68 degrees Calculated T Cranford : 237 degrees ATRIAL FIBRILLATION WITH RAPID VENTRICULAR RESPONSE ST & INFEROLATERAL T WAVE ABNORMALITY ABNORMAL ECG Confirmed by MD OBRIEN GREGORY () on 06/03/2024 8:39:22 AM NAME : LINDSAY ACUNA PID : [id number] : 1945 Gender : Female Race : ORD : Procedure Date : May 31 2024 09:21:47 Edit Date : Jun 03 2024 08:39:24 Diagnosis: ATRIAL FIBRILLATION WITH RAPID VENTRICULAR RESPONSE ST & INFEROLATERAL T WAVE ABNORMALITY ABNORMAL ECG Confirmed by MD OBRIEN GREGORY () on 06/03/2024 8:39:22 AM Test Reason : Location : 136 : [facility] Overread By : MD OBRIEN GREGORY Edited By : MD OBRIEN GREGORY Referred By : Kameron Caruso Acquired by : Adenike Walton MA, Normal [facility] ALBUMIN/CREATININE RATIO, UR INEon 05-23-2024 Albumin DL <= 20 mg/L (U) [Mass/Vol] 16.3 mg/L Normal [facility] Comment on above: Order Comment: Speci men Type: URINE SPECIMENOrdering Facility: [facility] Address: [address] [place] [address] Performed By: #### U ACR ####[facility] LABCLIA [id number] [address] [place] [facility] Albumin/Creatinine (U) [Mass ratio] 16 mg/g Normal <30 [facility] Comment on above: Order Comment: Speci men Type: URINE SPECIMENOrdering Facility: [facility] Address: [address] [place] [address] Result Comment: Adul t Male and Female Nephrotic Criteria: <30 mg/g is considered normal to mildly increased 30-300 mg/g is considered moderately increased >300 mg/g is considered severely increased KDIGO. (2013). KDIGO 2012 Clinical Practice Guideline for the Evaluation and Management of Chronic Kidney Disease. Official Journal of the International Society of Nephrology, 3(1), 1-150. Performed By: #### U ACR ####[facility] LABCLIA [id number] [place] [address] [place] Creatinine (U) [Mass/Vol] 102.1 mg/dL Normal 20.0-300.0 [facility] Comment on above: Order Comment: Speci men Type: URINE SPECIMENOrdering Facility: [facility] Address: [address] [place] [address] Performed By: #### U ACR ####[facility] LABCLIA [id number] [place] [address] [place] Comprehensive metabolic 2000 panelon 05-23-2024 Albumin [Mass/Vol] 4.2 g/dL Normal 3.9-4.[address] [facility] Comment on above: Order Comment: Speci men Type: BLOOD SPECIMENOrdering Facility: [facility] Address: [address] [place] [address] Performed By: #### 2 4331-1, 76479-6, 3015-3 ####[facility] LABCLIA [id number] [place] [address] [place] ALP [Catalytic activity/Vol] 146 U/L High 34-123 [facility] Comment on above: Order Comment: Speci men Type: BLOOD SPECIMENOrdering Facility: [facility] Address: [address] [place] [address] Performed By: #### 2 4331-1, 91955-4, 3015-3 ####[facility] LABIA [id number] [place] [address] [place] ALT [Catalytic activity/Vol] 17 U/L Normal 7-38 [facility] Comment on above: Order Comment: Speci men Type: BLOOD SPECIMENOrdering Facility: [facility] Address: [address] [place] [address] Performed By: #### 2 4331-1, 08049-3, 3015-3 ####[facility] LABIA [id number] [place] [address] [place] Anion gap [Moles/Vol] 9 mmol/L Normal 8-15 [facility] Comment on above: Order Comment: Speci men Type: BLOOD SPECIMENOrdering Facility: [facility] Address: [address] [place] [address] Performed By: #### 2 4331-1, 50257-6, 3015-3 ####[facility] LABIA [id number] [place] [address] [place] AST [Catalytic activity/Vol] 16 U/L Normal 13-35 [facility] Comment on above: Order Comment: Speci men Type: BLOOD SPECIMENOrdering Facility: [facility] Address: [address] [place], [place] [address] Performed By: #### 2 4331-1, , 3015-07 ####[facility] LABCLIA [id number] [address] [address] [place] Bilirubin [Mass/Vol] 0.4 mg/dL Normal 0.2-1.3 [facility] Comment on above: Order Comment: Speci men Type: BLOOD SPECIMENOrdering Facility: [facility] Address: [address] [place] [address] Performed By: #### 2 4331-1, , 3015-07 ####[facility] LABCLIA [id number] [address] [address] [place] Calcium [Mass/Vol] 9.6 mg/dL Normal 8.5-10.[address] [facility] Comment on above: Order Comment: Speci men Type: BLOOD SPECIMENOrdering Facility: [facility] Address: [address] [place] [address] Performed By: #### 2 4331-1, , 3015-07 ####[facility] LABCLIA [id number] [place] [address] [place] Chloride [Moles/Vol] 104 mmol/L Normal 98-107 [facility] Comment on above: Order Comment: Speci men Type: BLOOD SPECIMENOrdering Facility: [facility] Address: [address] [place] [address] Performed By: #### 2 4331-1, , 3015-07 ####[facility] LABCLIA [id number] [address] [address] [place] CO2 [Moles/Vol] 28 mmol/L Normal 22-30 [facility] Comment on above: Order Comment: Speci men Type: BLOOD SPECIMENOrdering Facility: [facility] Address: [address] [place], [place] [address] Performed By: #### 2 4331-1, , 3 ####[facility] LABCLIA [id number] [place] [address] [place] Creatinine [Mass/Vol] 1.31 mg/dL High 0.58-0.96 [facility] Comment on above: Order Comment: Deana borjas Type: BLOOD SPECIMENOrdering Facility: [facility] Address: [address] [place] [address] Performed By: #### 2 4331-1, 26593-1, 3015-3 ####[facility] [id number] [place] [address] [place] Creatinine and Glomerular filtration rate.predicted panel (S/P/Bld) 42 mL/min/1.73m??? Low >=60 [facility] Comment on above: Order Comment: Deana borjas Type: BLOOD SPECIMENOrdering Facility: [facility] Address: [address] [place] [address] Result Comment: Nancy mated Glomerular Filtration Rate [...] actual GFR. Performed By: #### 2 4331-1, 94036-7, 3015-3 ####[facility] [id number] [place] [address] [place] Glucose [Mass/Vol] 105 mg/dL High 74-[address] [facility] Comment on above: Order Comment: Deana suad Type: BLOOD SPECIMENOrdering Facility: [facility] Address: [address] [place] [address] Result Comment: The [place] Diabetes Association (ADA) [...] 2016.39(Suppl 1). Performed By: #### 2 4331-1, 10450-3, 3015-3 ####[facility] LABCLIA [id number] [address] [address] [place] Potassium [Moles/Vol] 4.7 mmol/L Normal 3.7-5.1 [facility] Comment on above: Order Comment: Speci men Type: BLOOD SPECIMENOrdering Facility: [facility] Address: [address] [place] [address] Performed By: #### 2 4331-1, , 3 ####[facility] LABCLIA [id number] [place] [address] [place] Protein [Mass/Vol] 7.1 g/dL Normal 6.3-8.[address] [facility] Comment on above: Order Comment: Speci men Type: BLOOD SPECIMENOrdering Facility: [facility] Address: [address] [place] [address] Performed By: #### 2 4331-1, , 3 ####[facility] LABCLIA [id number] [address] [address] [place] Sodium [Moles/Vol] 141 mmol/L Normal 136-[address] [facility] Comment on above: Order Comment: Speci men Type: BLOOD SPECIMENOrdering Facility: [facility] Address: [address] [place] [address] Performed By: #### 2 4331-1, , 3015-3 ####[facility] LABCLIA [id number] [address] [address] [place] Urea nitrogen [Mass/Vol] 18 mg/dL Normal 7-21 [facility] Comment on above: Order Comment: Deana borjas Type: BLOOD SPECIMENOrdering Facility: [facility] Address: [address] [place] [address] Performed By: #### 2 4331-1, 86676-8, 3016-3 ####[facility] LABCLIA [id number] [place] [address] [place] HbA1c (Bld)on 05-23-2024 Average glucose Estimated from glycated hemoglobin (Bld) [Mass/Vol] 154 mg/dL Normal [facility] Comment on above: Order Comment: Deana borjas Type: BLOOD SPECIMENOrdering Facility: [facility] Address: [address] [place] [address] Result Comment: eAG: (Estimated average glucose) is a calculated value from HgbA1c and is student services representative of the average blood glucose level in the last 2-3 month period. Performed By: #### 5 5454-3 ####[facility] LABIA [id number] [place] [address] [place] HbA1c (Bld) [Mass fraction] 7.0 % High 4.3-5.6 [facility] Comment on above: Order Comment: Deana borjas Type: BLOOD SPECIMENOrdering Facility: [facility] Address: [address] [place] [address] Result Comment: Amer [place] Diabetes Association guidelines indicate that patients with HgbA1c in the range 5.7-6.4% are at increased risk for development of diabetes, and intervention by lifestyle modification may be beneficial. HgbA1c greater or equal to 6.5% is considered diagnostic of diabetes. Performed By: #### 5 5454-3 ####[facility] LABCLIA [id number] [place] [address] [place] Lipid 1996 panelon 5 Cholesterol [Mass/Vol] 193 mg/dL Normal <200 [facility] Comment on above: Order Comment: Deana borjas Type: BLOOD SPECIMENOrdering Facility: [facility] Address: [address] [place] [id number] Result Comment: <200 mg/dL, Desirable 200-239 mg/dL, Borderline high >239 mg/dL, High Performed By: #### 2 4331-1, 77681-0, 6-3 ####[facility] LABCLIA [id number] [facility] [address] [address] [place] Cholesterol in HDL [Mass/Vol] 44 mg/dL Normal >39 [facility] Comment on above: Order Comment: Speci men Type: BLOOD SPECIMENOrdering Facility: [facility] Address: [address] [place] [address] Result Comment: 40-5 9 mg/dL, Acceptable >59 mg/dL, High: Negative risk factor for coronary heart disease <40 mg/dL, Low: Positive risk factor for coronary heart disease Performed By: #### 2 4331-1, 24415-8, 3 ####[facility] LABCLIA [id number] [facility] [address] [address] [place] Cholesterol in LDL [Mass/Vol] 123 mg/dL High <100 [facility] Comment on above: Order Comment: Nici men Type: BLOOD SPECIMENOrdering Facility: [facility] Address: [address] [place] [address] Result Comment: <100 mg/dL, Optimal 100-129 mg/dL, Near optimal/above optimal 130-159 mg/dL, Borderline high 160-189 mg/dL, High >189 mg/dL, Very high Secondary prevention optimal LDL Cholesterol levels are recommended to be < 70 mg/dL Performed By: #### 2 4331-1, 03638-1, 6-3 ####[facility] LABCLIA [id number] [facility] [address] [address] [place] Cholesterol in LDL/Cholesterol in HDL [Mass ratio] 2.80 {ratio} High <2.54 [facility] Comment on above: Order Comment: Speci men Type: BLOOD SPECIMENOrdering Facility: [facility] [facility] Address: [address] [place] [address] Result Comment: Chong daniel: 1. National Cholesterol Education Program ATP III Guideline At-A-Glance Quick Desk Reference: National Heart, Lung, and Blood [place]. National Institutes of Health. 2001: NIH Publication No. 01-3305. 2. An International Atherosclerosis Society position paper: global recommendations for the management of dyslipidemia: executive summary, Atherosclerosis. 2014: 232(2):410-413. Performed By: #### 2 4331-1, 27554-4, 6-3 ####[facility] LABCLIA [id number] [place] [address] [place] Cholesterol in VLDL [Mass/Vol] 26 mg/dL Normal <30 [facility] Comment on above: Order Comment: Speci men Type: BLOOD SPECIMENOrdering Facility: [facility] Address: [address] [place] [address] Performed By: #### 2 4331-1, 29401-5, 3015-3 ####[facility] LABCLIA [id number] [place] [address] [place] Cholesterol non HDL [Mass/Vol] 149 mg/dL High <130 [facility] Comment on above: Order Comment: Nici men Type: BLOOD SPECIMENOrdering Facility: [facility] Address: [address] [place] [address] Result Comment: <130 mg/dL, Optimal 130-159 mg/dL, Near optimal/above optimal 160-189 mg/dL, Borderline high 190-219 mg/dL, High >219 mg/dL, Very high Secondary prevention optimal non HDL Cholesterol levels are recommended to be <100 mg/dL Performed By: #### 2 4331-1, 80528-4, 6-3 ####[facility] LABCLIA [id number] [place] [id number] [place] Cholesterol.total/Alta sterol in HDL [Mass ratio] 4.39 {ratio} Normal <5.10 [facility] Comment on above: Order Comment: Speci men Type: BLOOD SPECIMENOrdering Facility: [facility] Address: [address] [place] [address] Performed By: #### 2 4331-1, , 3 ####[facility] LABCLIA [id number] [place] [address] [place] FASTING TIME 12 hrs Normal [facility] Comment on above: Order Comment: Speci men Type: BLOOD SPECIMENOrdering Facility: [facility] Address: [address] [place] [address] Performed By: #### 2 4331-1, , 3015-07 ####[facility] LABCLIA [id number] [place] [address] [place] Triglyceride [Mass/Vol] 129 mg/dL Normal <150 [facility] Comment on above: Order Comment: Speci men Type: BLOOD SPECIMENOrdering Facility: [facility] Address: [address] [place] [address] Result Comment: <150 mg/dL, Normal 150-199 mg/dL, Borderline high 200-499 mg/dL, High >499 mg/dL, Very high Performed By: #### 2 4331-1, , 3015-07 ####[facility] LABCLIA [id number] [place] [address] [place] TSH SerPl-aCncon 05-23-2024 TSH Qn 0.183 m[IU]/L Low 0.270-4.200 [facility] Comment on above: Order Comment: Speci men Type: BLOOD SPECIMENOrdering Facility: [facility] Address: [address] [place] [address] Performed By: #### 2 4331-1, , 3015-07 ####[facility] LABCLIA [id number] [place] [address] [place] CNOVon 11-28-2023 [facility] LINDSAY ACUNA ([id number]) 1945 F Date Time Provider Department 11/28/23 [...] follow up. Is planning on going to [place] in June. No bowel, gi, or urinary concerns. Does have some urinary leakage. Hx of tubulovillous adenoma; due for colonoscopy; will contact GI in [place] Lipid: Does not watch diet or exercise. [...] mouth daily before breakfast. blood sugar diagnostic (InfraSearchUCH ULTRA TEST) test strip Test Blood Sugar [...] 1 tablet by mouth once daily. lancets (InfraSearchUCH DELICA PLUS LANCET) 30 gauge Test blood [...] Smoking stat (more content not included)... Normal [facility] Comprehensive metabolic 2000 panelon 11-27-2023 Albumin [Mass/Vol] 4.1 g/dL Normal 3.9-4.[address] [facility] Comment on above: Order Comment: Speci men Type: BLOOD SPECIMENOrdering Facility: [facility] Address: [address] [place] [address] Performed By: #### 3 016-3, 55984-2, 76080-8 ####[facility] LABCLIA [id number] [place] [address] [place] ALP [Catalytic activity/Vol] 86 U/L Normal 34-123 [facility] Comment on above: Order Comment: Speci men Type: BLOOD SPECIMENOrdering Facility: [facility] Address: [address] [place] [address] Performed By: #### 3 016-3, 59278-1, 41171-7 ####[facility] LABCLIA [id number] [place] [address] [place] ALT [Catalytic activity/Vol] 13 U/L Normal 7-38 [facility] Comment on above: Order Comment: Speci men Type: BLOOD SPECIMENOrdering Facility: [facility] Address: [address] [place] [address] Performed By: #### 3 016-3, 98811-3, 51296-4 ####[facility] LABCLIA [id number] [place] [address] [place] Anion gap [Moles/Vol] 10 mmol/L Normal 8-15 [facility] Comment on above: Order Comment: Speci men Type: BLOOD SPECIMENOrdering Facility: [facility] Address: [address] [place] [address] Performed By: #### 3 016-3, 87297-6, 74050-8 ####[facility] LABCLIA [id number] [place] [address] [place] AST [Catalytic activity/Vol] 21 U/L Normal 13-35 [facility] Comment on above: Order Comment: Speci men Type: BLOOD SPECIMENOrdering Facility: [facility] Address: [address] [place] [address] Performed By: #### 3 016-3, 75769-2, 10160-9 ####[facility] LABCLIA [id number] [place] [address] [place] Bilirubin [Mass/Vol] 0.5 mg/dL Normal 0.2-1.3 [facility] Comment on above: Order Comment: Speci men Type: BLOOD SPECIMENOrdering Facility: [facility] Address: [address] [place] [address] Performed By: #### 3 016-3, 72168-9, 83703-9 ####[facility] LABCLIA [id number] [place] [address] [place] Calcium [Mass/Vol] 9.7 mg/dL Normal 8.5-10.[address] [facility] Comment on above: Order Comment: Speci men Type: BLOOD SPECIMENOrdering Facility: [facility] Address: [address] [place] [address] Performed By: #### 3 016-3, 53046-2, 37889-2 ####[facility] LABCLIA [id number] [place] [id number] [place] Chloride [Moles/Vol] 108 mmol/L High 98-107 [facility] Comment on above: Order Comment: Speci men Type: BLOOD SPECIMENOrdering Facility: [facility] Address: [address] [place] [address] Performed By: #### 3 016-3, 25503-2, 67769-8 ####[facility] LABCLIA [id number] [place] [address] [place] CO2 [Moles/Vol] 23 mmol/L Normal 22-30 [facility] Comment on above: Order Comment: Speci men Type: BLOOD SPECIMENOrdering Facility: [facility] Address: [address] [place] [address] Performed By: #### 3 016-3, 10097-5, 69119-2 ####[facility] LABCLIA [id number] [place] [address] [place] Creatinine [Mass/Vol] 1.37 mg/dL High 0.58-0.96 [facility] Comment on above: Order Comment: Speci men Type: BLOOD SPECIMENOrdering Facility: [facility] Address: [address] [place] [address] Performed By: #### 3 016-3, 18125-0, 44093-7 ####[facility] LABCLIA [id number] [place] [address] [place] Creatinine and Glomerular filtration rate.predicted panel (S/P/Bld) 39 mL/min/1.73m??? Low >=60 [facility] Comment on above: Order Comment: Speci men Type: BLOOD SPECIMENOrdering Facility: [facility] Address: [address] [place] [address] Result Comment: Nancy mated Glomerular Filtration Rate [...] actual GFR. Performed By: #### 3 016-3, 04499-8, 23844-4 ####[facility] LABCLIA [id number] [place] [address] [place] Glucose [Mass/Vol] 77 mg/dL Normal 74-[address] [facility] Comment on above: Order Comment: Speci men Type: BLOOD SPECIMENOrdering Facility: [facility] Address: [address] [place] [address] Result Comment: The [place] Diabetes Association (ADA) [...] 2016.39(Suppl 1). Performed By: #### 3 016-3, 32286-3, 29455-8 ####[facility] LABCLIA [id number] [place] [address] [place] Potassium [Moles/Vol] 4.4 mmol/L Normal 3.7-5.1 [facility] Comment on above: Order Comment: Speci men Type: BLOOD SPECIMENOrdering Facility: [facility] Address: [address] [place] [address] Performed By: #### 3 016-3, 66186-1, 03680-3 ####[facility] LABIA [id number] [place] [address] [place] Protein [Mass/Vol] 6.6 g/dL Normal 6.3-8.[address] [facility] Comment on above: Order Comment: Speci men Type: BLOOD SPECIMENOrdering Facility: [facility] Address: [address] [place] [address] Performed By: #### 3 016-3, 14781-7, 25843-2 ####[facility] LABCLIA [id number] [place] [address] [place] Sodium [Moles/Vol] 141 mmol/L Normal 136-[address] [facility] Comment on above: Order Comment: Speci men Type: BLOOD SPECIMENOrdering Facility: [facility] Address: [address] [place] [address] Performed By: #### 3 016-3, 08664-0, 98172-5 ####[facility] LABIA [id number] [place] [address] [place] Urea nitrogen [Mass/Vol] 21 mg/dL Normal 7-21 [facility] Comment on above: Order Comment: Speci men Type: BLOOD SPECIMENOrdering Facility: [facility] Address: [address] [place] [address] Performed By: #### 3 016-3, 97878-7, 99020-2 ####[facility] LABIA [id number] [place] [address] [place] HbA1c (Bld)on 11-27-2023 Average glucose Estimated from glycated hemoglobin (Bld) [Mass/Vol] 166 mg/dL Normal [facility] Comment on above: Order Comment: Speci men Type: BLOOD SPECIMENOrdering Facility: [facility] Address: [address] [place] [address] Result Comment: eAG: (Estimated average glucose) is a calculated value from HgbA1c and is student services representative of the average blood glucose level in the last 2-3 month period. Performed By: #### 5 5454-3 ####[facility] LABIA [id number] [place] [address] [place] HbA1c (Bld) [Mass fraction] 7.4 % High 4.3-5.6 [facility] Comment on above: Order Comment: Speci men Type: BLOOD SPECIMENOrdering Facility: [facility] Address: [address] [place] [address] Result Comment: Amer ican Diabetes Association guidelines indicate that patients with HgbA1c in the range 5.7-6.4% are at increased risk for development of diabetes, and intervention by lifestyle modification may be beneficial. HgbA1c greater or equal to 6.5% is considered diagnostic of diabetes. Performed By: #### 5 5454-3 ####[facility] LABCLIA [id number] [place] [address] [place] Lipid 1996 panelon 4 Cholesterol [Mass/Vol] 156 mg/dL Normal <200 [facility] Comment on above: Order Comment: Deana suad Type: BLOOD SPECIMENOrdering Facility: [facility] Address: [address] [place] [address] Result Comment: <200 mg/dL, Desirable 200-239 mg/dL, Borderline high >239 mg/dL, High Performed By: #### 3 016-3, 12202-1, 97262-8 ####[facility] LABCLIA [id number] [address] [facility] Cholesterol in HDL [Mass/Vol] 41 mg/dL Normal >39 [facility] Comment on above: Order Comment: Deana suad Type: BLOOD SPECIMENOrdering Facility: [facility] Address: [address] [place] [address] Result Comment: 40-5 9 mg/dL, Acceptable >59 mg/dL, High: Negative risk factor for coronary heart disease <40 mg/dL, Low: Positive risk factor for coronary heart disease Performed By: #### 3 016-3, 91668-0, 94422-7 ####[facility] LABCLIA [id number] [address] OF [facility] Cholesterol in LDL [Mass/Vol] 85 mg/dL Normal <100 [facility] Comment on above: Order Comment: Nici men Type: BLOOD SPECIMENOrdering Facility: [facility] Address: [address] [place] [address] Result Comment: <100 mg/dL, Optimal 100-129 mg/dL, Near optimal/above optimal 130-159 mg/dL, Borderline high 160-189 mg/dL, High >189 mg/dL, Very high Secondary prevention optimal LDL Cholesterol levels are recommended to be < 70 mg/dL Performed By: #### 3 016-3, 21673-2, 05762-3 ####[facility] LABCLIA [id number] [place] [address] [place] Cholesterol in LDL/Cholesterol in HDL [Mass ratio] 2.07 {ratio} Normal <2.54 [facility] Comment on above: Order Comment: Speci men Type: BLOOD SPECIMENOrdering Facility: [facility] Address: [address] [place] [address] Result Comment: Refe rence: 1. National Cholesterol Education Program ATP III Guideline At-A-Glance Quick Desk Reference: National Heart, Lung, and Blood [place]. National Institutes of Health. 2001: NIH Publication No. 01-3305. 2. An International Atherosclerosis Society position paper: global recommendations for the management of dyslipidemia: executive summary, Atherosclerosis. 2014: 232(2):410-413. Performed By: #### 3 016-3, 47439-9, 06252-7 ####[facility] LABIA [id number] [place] [address] [place] Cholesterol in VLDL [Mass/Vol] 30 mg/dL High <30 [facility] Comment on above: Order Comment: Speci men Type: BLOOD SPECIMENOrdering Facility: [facility] Address: [address] [place] [address] Performed By: #### 3 016-3, 88940-4, 47332-9 ####[facility] LABCLIA [id number] [place] [address] [place] Cholesterol non HDL [Mass/Vol] 115 mg/dL Normal <130 [facility] Comment on above: Order Comment: Speci men Type: BLOOD SPECIMENOrdering Facility: [facility] Address: [address] [place] [address] Result Comment: <130 mg/dL, Optimal 130-159 mg/dL, Near optimal/above optimal 160-189 mg/dL, Borderline high 190-219 mg/dL, High >219 mg/dL, Very high Secondary prevention optimal non HDL Cholesterol levels are recommended to be <100 mg/dL Performed By: #### 3 016-3, 50704-3, 64286-8 ####[facility] LABCLIA [id number] [place] [address] [place] Cholesterol.total/Alta sterol in HDL [Mass ratio] 3.80 {ratio} Normal <5.10 [facility] Comment on above: Order Comment: Speci men Type: BLOOD SPECIMENOrdering Facility: [facility] Address: [address] [place] [address] Performed By: #### 3 016-3, 51790-9, 53889-4 ####[facility] LABCLIA [id number] [place] [address] [place] FASTING TIME 12 hrs Normal [facility] Comment on above: Order Comment: Speci men Type: BLOOD SPECIMENOrdering Facility: [facility] Address: [address] [place] [address] Performed By: #### 3 016-3, 72471-5, 26137-6 ####[facility] LABCLIA [id number] [place] [address] [place] Triglyceride [Mass/Vol] 148 mg/dL Normal <150 [facility] Comment on above: Order Comment: Speci men Type: BLOOD SPECIMENOrdering Facility: [facility] Address: [address] [place] [address] Result Comment: <150 mg/dL, Normal 150-199 mg/dL, Borderline high 200-499 mg/dL, High >499 mg/dL, Very high Performed By: #### 3 016-3, 30751-7, 61504-0 ####[facility] LABCLIA [id number] [place] [address] [place] TSH SerPl-aCncon 11-27-2023 TSH Qn 1.870 m[IU]/L Normal 0.270-4.200 [facility] Comment on above: Order Comment: Speci men Type: BLOOD SPECIMENOrdering Facility: [facility] Address: [address] [place] [address] Performed By: #### 3 016-3, 08919-2, 21155-7 ####[facility] LABCLIA [id number] [address] [place] CNOVon 10-10-2023 CNOV Office Visit ([facility] ) LINDSAY ACUNA ([id number]) 1945 F Date Time Provider Department 10/10/23 7:30 AM DAVID DUPREE [facility] During your visit today, we recorded the following information about you: Temperature Pulse Respiration Blood pressure 97.5 degrees 58/minute 18/minute 128/82 Weight 82.1 kg David Dupree APRN.ORDER CONTROL CLERK [facility] 10/10/2023 8:11 AM Signed Subjective HPI Nontoxic-appearing [...] Rate and (more content not included)... Normal [facility] CNOVon 09-29-2023 CNOV Office Visit ([facility] ) LINDSAY ACUNA ([id number]) 1945 F Date Time Provider Department 09/29/23 2:15 PM RADHA LEVINE [facility] During your visit today, we recorded the following information about you: Temperature Pulse Respiration Blood pressure 97.8 degrees 54/minute 18/minute 148/91 Weight 84 kg Radha Levine, [facility] 09/29/2023 6:12 PM Signed This note was created using NoteWriter. Subjective Lindsay Acuna is a 77 year old female. 77 year old female with PMH HTN, hyperlipidemia, CKD, DM, thyroid presents for rash Acute onset of symptoms was 2 days [place] +bilateral hands, forearms +nape of neck +face +itching +redness Denies pain. Denies fever or chills Denies malaise or fatigue Denies new lotions, soaps, or medicines States that she was working out in the garden the same day the rash erupted. The history is provided by the patient. No foreign language professor was used. Rash This is a [...] mouth daily before breakfast. blood sugar diagnostic (MemberPass ULTRA TEST) test strip Test Blood Sugar [...] 30 seconds then expectorate blood sugar diagnostic (BringShareTOUCH ULTRA TEST STRIP) test strip Use to [...] state. Hematologi (more content not included)... Normal [facility] Glucose,Bedsideon 04-16-2019 Glucose [Mass/Vol] 161 mg/dL High 70-100 [facility] Comment on above: Result Comment: Test performed by glucose meter. Results may be 10%-15% lower than serum/plasma values. (CLIA ID [id number]) Performed By: #### B GLU #### [address] [address] Surgical Pathologyon 019 Surgical Pathology [id number] [facility] PATH[facility]ORATORY MEDICINE [address] [place] [address] FINAL SURGICAL PATHOLOGY REPORT ___ NAME: LINDSAY ACUNA : 1945 73 Y F BILLING NO.: [id number] LOCATION: 1XEO PROCEDURE 01/09/2019 DATE: SURGEON: SANTIAGO [...] characteristics determined by the clinical laboratories of [facility]. They have not been cleared [...] negativity on decalcified specimens. Professional Performing Location: [address] [address]. DEPARTMENT OF PATHOLOGY AND LABORATORY MEDICINE [place], [place] [address] Normal [facility] .Auto Diffon 08-22-2018 Ammonia mass conc (P) 1.10 10 3/mcL High 0.15-1.00 [facility] ([place]) Comment on above: Performed By: #### B DAYANARA VALVERDE #### [address] [address] Basophils #/vol (Bld) 0.00 10 3/mcL Normal 0.00-0.19 [facility] ([place]) Comment on above: Performed By: #### B MP, GFR #### [address] [address] Basophils/100 WBC (Bld) 0.3 % Normal 0.0-2.5 [facility] ([place]) Comment on above: Performed By: #### B MP, GFR #### [address] [address] Eosinophils #/vol (Bld) 0.00 10 3/mcL Normal 0.00-0.40 [facility] ([place]) Comment on above: Performed By: #### B MP, GFR #### [address] [address] Eosinophils/100 WBC (Bld) 0.2 % Normal 0.0-7.0 [facility] ([place]) Comment on above: Performed By: #### B MP, GFR #### [address] [address] Lymphocytes #/vol (Bld) 2.20 10 3/mcL Normal 0.77-3.85 [facility] ([place]) Comment on above: Performed By: #### B MP, GFR #### [address] [address] Lymphocytes/100 WBC (Bld) 20.5 % Normal 10.0-50.0 [facility] ([place]) Comment on above: Performed By: #### B MP, GFR #### [address] [address] Monocytes/100 WBC (Bld) 10.5 % Normal 1.7-13.0 A [facility] ([place]) Comment on above: Performed By: #### B MP, GFR #### [address] [address] Neutrophils/100 WBC (Bld) 68.5 % Normal 37.0-80.0 [facility] ([place]) Comment on above: Performed By: #### B MP, GFR #### [address] [address] .GFRon 08-22-2018 GFR Non- 33 ml/min/1.73sqm Normal [facility] ([place]) Comment on above: Result Comment: GFR Population [...] Performed By: #### B MP, GFR #### [address] [address] #### DORY LOPEZ, ANEU #### [address] [address] GFR 40 ml/min/1.73sqm Normal [facility] ([place]) Comment on above: Result Comment: GFR Population [...] Performed By: #### B MP, GFR #### [address] [address] #### CBC, ADIFF, ANEU #### [address] [address] .NEUABSon 08-22-2018 Neutrophils #/vol (Bld) 7.40 10 3/mcL High 2.85-6.16 [facility] ([place]) Comment on above: Performed By: #### B MP, GFR #### [place] [address] BMPon 08-22-2018 Calcium mass conc 8.3 mg/dL Low 8.4-10.2 [facility] ([place]) Comment on above: Performed By: #### B MP, GFR #### [place] [address] #### CBC, ADIFF, ANEU #### [place] [address] Chloride molar conc 104 mmol/L Normal 98-107 [facility] ([place]) Comment on above: Performed By: #### B MP, GFR #### [place] [address] #### CBC, ADIFF, ANEU #### [address] [address] CO2 molar conc 25 mmol/L Normal 23-31 [facility] ([place]) Comment on above: Performed By: #### B MP, GFR #### [place] [address] #### CBC, ADIFF, ANEU #### [place] [address] Creatinine mass conc 1.53 mg/dL High 0.55-1.02 [facility] ([place]) Comment on above: Performed By: #### B MP, GFR #### [place] [address] #### CBC, ADIFF, ANEU #### [place] [address] Electrolyte Balance 10.0 mEq/L Normal [facility] ([place]) Comment on above: Performed By: #### B MP, GFR #### [place] [address] #### CBC, ADIFF, ANEU #### [address] [address] Glucose mass conc 149 mg/dL High 83-110 [facility] ([place]) Comment on above: Performed By: #### B MP, GFR #### [address] [address] #### CBC, ADIFF, ANEU #### [address] [address] Potassium molar conc 4.3 mmol/L Normal 3.5-5.1 [facility] ([place]) Comment on above: Performed By: #### B MP, GFR #### [address] [address] #### CBC, ADIFF, ANEU #### [address] [address] Sodium molar conc 139 mmol/L Normal 136-145 [facility] ([place]) Comment on above: Performed By: #### B MP, GFR #### [place] [address] #### CBC, ADIFF, ANEU #### [address] [address] Urea nitrogen mass conc 32 mg/dL High 7-18 A [facility] ([place]) Comment on above: Performed By: #### B MP, GFR #### [address] [address] #### CBC, ADIFF, ANEU #### [address] [address] Urea nitrogen/Creatinine mass ratio 21 ratio Normal 7-27 [facility] ([place]) Comment on above: Performed By: #### B MP, GFR #### [address] [address] #### CBC, ADIFF, ANEU #### [address] [address] CBCon 08-22-2018 Erythrocyte distribution width Ratio (RBC) 12.6 % Normal 11.5-14.5 [facility] ([place]) Comment on above: Performed By: #### B MP, GFR #### [place] [address] Hematocrit Volume Fraction (Bld) 27.5 % Low 37.0-47.0 [facility] ([place]) Comment on above: Performed By: #### B MP, GFR #### [address] [address] Hemoglobin mass conc (Bld) 9.2 G/dL Low 12.0-16.0 [facility] ([place]) Comment on above: Performed By: #### B MP, GFR #### [place] [address] MCH Entitic mass (RBC) 30.1 pg Normal 27.0-31.2 [facility] ([place]) Comment on above: Performed By: #### B MP, GFR #### [place] [address] MCHC mass conc (RBC) 33.5 G/dL Normal 33.0-37.0 [facility], [facility] ([place]) Comment on above: Performed By: #### B MP, GFR #### [place] [address] MCV Entitic volume (RBC) 89.8 fL Normal 80.0-94.0 [facility] ([place]) Comment on above: Performed By: #### B MP, GFR #### [address] [address] Platelet mean volume Entitic volume (Bld) 9.3 fL Normal 7.4-10.4 [facility] ([place]) Comment on above: Performed By: #### B MP, GFR #### [address] [address] Platelets #/vol (Bld) 224 10 3/mcL Normal 130-400 A [facility] ([place]) Comment on above: Performed By: #### B MP, GFR #### [address] [address] RBC #/vol (Bld) 3.06 10 6/mcL Low 4.20-5.40 [facility] ([place]) Comment on above: Performed By: #### B MP, GFR #### [facility] [address] [place] [address] WBC #/vol (Bld) 10.80 10 3/mcL Normal 4.60-10.80 [facility] ([place]) Comment on above: Performed By: #### B MP, GFR #### [facility] [address] [place] [id number] XR KNEE 1 OR 2 VIEWS RIGHTon [...] AM Sign Date: 08/21/2018 9:55:37 AM Normal [facility] ([place]) CT KNEE W/O CONTRAST RIGHTon 08-09-2018 CT [...] PM Sign Date: 08/09/2018 5:04:12 PM Normal [facility] ([place]) .Auto Diffon 08-06-2018 Ammonia mass conc (P) 0.80 10 3/mcL Normal 0.15-1.00 [facility] ([place]) Comment on above: Performed By: #### C DORY SMITH, ANEU #### [place] [address] #### A1C #### [address] [address] Basophils #/vol (Bld) 0.10 10 3/mcL Normal 0.00-0.19 [facility] ([place]) Comment on above: Performed By: #### C DORY SMITH, ANEU #### [place] [address] #### A1C #### [address] [address] Basophils/100 WBC (Bld) 0.6 % Normal 0.0-2.5 A [facility] ([place]) Comment on above: Performed By: #### C DORY SMITH, ANEU #### [place] [address] #### A1C #### [address] [address] Eosinophils #/vol (Bld) 0.20 10 3/mcL Normal 0.00-0.40 [facility] ([place]) Comment on above: Performed By: #### C DORY SMITH, ANEU #### [place] [address] #### A1C #### [address] [address] Eosinophils/100 WBC (Bld) 1.7 % Normal 0.0-7.0 [facility] ([place]) Comment on above: Performed By: #### C SARAH ADCAROL, ANEU #### [place] [address] #### A1C #### [address] [address] Lymphocytes #/vol (Bld) 1.90 10 3/mcL Normal 0.77-3.85 [facility] ([place]) Comment on above: Performed By: #### C BC ADIFF, ANEU #### [address] [address] #### A1C #### [facility] [address] [place] [address] Lymphocytes/100 WBC (Bld) 20.8 % Normal 10.0-50.0 [facility] ([place]) Comment on above: Performed By: #### C BC ADIFF, ANEU #### [address] [address] #### A1C #### [facility] [address] [place] [address] Monocytes/100 WBC (Bld) 9.3 % Normal 1.7-13.0 A [facility] ([place]) Comment on above: Performed By: #### C BC ADIFF, ANEU #### [address] [address] #### A1C #### [address] [address] Neutrophils/100 WBC (Bld) 67.6 % Normal 37.0-80.0 [facility] ([place]) Comment on above: Performed By: #### C DORY SMITH, ANEU #### [address] [address] #### A1C #### [address] [address] .GFRon 08-06-2018 GFR 51 ml/min/1.73sqm Normal [facility] ([place]) Comment on above: Result Comment: GFR Population [...] Performed By: #### B MP, GFR #### [address] [address] GFR Non- 42 ml/min/1.73sqm Normal [facility] ([place]) Comment on above: Result Comment: GFR Population [...] Performed By: #### B MP, GFR #### [place] [address] .NEUABSon 08-06-2018 Neutrophils #/vol (Bld) 6.20 10 3/mcL High 2.85-6.16 [facility] ([place]) Comment on above: Performed By: #### DORY SOTO, ANEU #### [address] [address] #### A1C #### [place] [address] A1Con 08-06-2018 Hemoglobin A1c/Hemoglobin.total mass fraction (Bld) 7.9 % High 4.5-6.2 [facility] ([place]) Comment on above: Performed By: #### C DORY SMITH, ANEU #### [address] [address] #### A1C #### [address] [address] BMPon 08-06-2018 Calcium mass conc 9.2 mg/dL Normal 8.4-10.2 [facility] ([place]) Comment on above: Performed By: #### B MP, GFR #### [address] [address] Chloride molar conc 105 mmol/L Normal 98-107 [facility] ([place]) Comment on above: Performed By: #### B MP, GFR #### [address] [address] CO2 molar conc 27 mmol/L Normal 23-31 [facility] ([place]) Comment on above: Performed By: #### B MP, GFR #### [address] [address] Creatinine mass conc 1.25 mg/dL High 0.55-1.02 [facility] ([place]) Comment on above: Performed By: #### B MP, GFR #### [address] [address] Electrolyte Balance 11.0 mEq/L Normal [facility] ([place]) Comment on above: Performed By: #### B MP, GFR #### [place] [address] Glucose mass conc 70 mg/dL Low 83-110 [facility] ([place]) Comment on above: Performed By: #### B MP, GFR #### [place] [id number] Potassium molar conc 5.0 mmol/L Normal 3.5-5.1 [facility] ([place]) Comment on above: Performed By: #### B MP, GFR #### [place] [id number] Sodium molar conc 143 mmol/L Normal 136-145 [facility] ([place]) Comment on above: Performed By: #### B MP, GFR #### [address] [address] Urea nitrogen mass conc 26 mg/dL High 7-18 A [facility] ([place]) Comment on above: Performed By: #### B MP, GFR #### [address] [address] Urea nitrogen/Creatinine mass ratio 21 ratio Normal 7-27 [facility] ([place]) Comment on above: Performed By: #### B MP, GFR #### [address] [address] CBCon 08-06-2018 Erythrocyte distribution width Ratio (RBC) 12.2 % Normal 11.5-14.5 [facility] ([place]) Comment on above: Performed By: #### C DORY SMITH, ANEU #### [address] [address] #### A1C #### [place] [address] Hematocrit Volume Fraction (Bld) 34.6 % Low 37.0-47.0 [facility] ([place]) Comment on above: Performed By: #### C DORY SMITH, ANEU #### [address] [address] #### A1C #### [place] [address] Hemoglobin mass conc (Bld) 11.7 G/dL Low 12.0-16.0 [facility] ([place]) Comment on above: Performed By: #### C DORY SMITH, ANEU #### [address] [address] #### A1C #### [place] [address] MCH Entitic mass (RBC) 30.6 pg Normal 27.0-31.2 [facility] ([place]) Comment on above: Performed By: #### C DORY SMITH, ANEU #### [place] [address] #### A1C #### [place] [address] MCHC mass conc (RBC) 33.7 G/dL Normal 33.0-37.0 [facility] ([place]) Comment on above: Performed By: #### C DORY SMITH, ANEU #### [address] [address] #### A1C #### [place] [address] MCV Entitic volume (RBC) 90.9 fL Normal 80.0-94.0 [facility] ([place]) Comment on above: Performed By: #### C BC, ADIFF, ANEU #### [address] [address] #### A1C #### [address] [address] Platelet mean volume Entitic volume (Bld) 8.8 fL Normal 7.4-10.4 [facility] ([place]) Comment on above: Performed By: #### C BC, ADIFF, ANEU #### [address] [address] #### A1C #### [address] [address] Platelets #/vol (Bld) 355 10 3/mcL Normal 130-400 A [facility] ([place]) Comment on above: Performed By: #### C BC, ADIFF, ANEU #### [address] [address] #### A1C #### [place] [address] RBC #/vol (Bld) 3.81 10 6/mcL Low 4.20-5.40 [facility] ([place]) Comment on above: Performed By: #### C BC, ADIFF, ANEU #### [address] [address] #### A1C #### [place] [address] WBC #/vol (Bld) 9.20 10 3/mcL Normal 4.60-10.80 [facility] ([place]) Comment on above: Performed By: #### C BC, ADIFF, ANEU #### [address] [address] #### A1C #### [place] [address] Vital Signs Date Time Vital Sign Value Performing Clinician Facility 10-02-2024 09:0400 Body height 167.[address] Kameron Caruso MD Work Phone: [facility] 10-02-2024 09:21-0400 Diastolic blood pressure 71 mm[Hg] Dr. Kameron Caruso MD Work Phone: [facility] 10-02-2024 09:21-0400 Heart rate 77 /min Dr. Kameron Caruso MD Work Phone: [facility] 10-02-2024 09:21-0400 Respiratory rate 16 /min Dr. Kameron Caruso MD Work Phone: [facility] 10-02-2024 09:21-0400 Systolic blood pressure 111 mm[Hg] Dr. Kameron Caruso MD Work Phone: [facility] 09-09-2024 09:02-0400 Heart rate 100 /min SILVINO SCHEATZLE DO [facility] 09-09-2024 07:58-0400 Blood Pressure Cuff Size SILVINO SCHEATZLE DO [facility] 09-09-2024 07:58-0400 Blood Pressure Location SILVINO SCHEATZLE DO [facility] 09-09-2024 07:58-0400 Blood Pressure Method SILVINO SCHEATZLE DO [facility] 09-09-2024 07:58-0400 Body temperature 96.8 [degF] SILVINO SCHEATZLE DO [facility] 09-09-2024 07:58-0400 Diastolic Blood Pressure Non-Invasive 78 mm[Hg] SILVINO SCHEATZLE DO [facility] 09-09-2024 07:58-0400 Heart rate 110 /min SILVINO SCHEATZLE DO [facility] 09-09-2024 07:58-0400 Reason For Taking VItal Signs SILVINO SCHEATZLE DO [facility] 09-09-2024 07:58-0400 Respiratory rate 16 /min SILVINO SCHEATZLE DO [facility] 09-09-2024 07:58-0400 Systolic Blood Pressure Non-Invasive 122 mm[Hg] SILVINO CIDATZLE DO [facility] 09-09-2024 02:45-0400 Body temperature 97.7 [degF] SILVINO CIDATZLE DO [facility] 09-09-2024 02:45-0400 Diastolic Blood Pressure Non-Invasive 60 mm[Hg] SILVINO CIDATZLE DO [facility] 09-09-2024 02:45-0400 Heart rate 92 /min SILVINO CIDATZLE DO [facility] 09-09-2024 02:45-0400 Respiratory rate 16 /min SILVINO CIDATZLE DO [facility] 09-09-2024 02:45-0400 Systolic Blood Pressure Non-Invasive 108 mm[Hg] SILVINO CIDATZLE DO [facility] 09-08-2024 22:28-0400 Blood Pressure Cuff Size SILVINO CIDATZLE DO [facility] 09-08-2024 22:28-0400 Blood Pressure Location SILVINO CIDATZLE DO [facility] 09-08-2024 22:28-0400 Blood Pressure Method SILVINO CIDATZLE DO [facility] 09-08-2024 22:28-0400 Body temperature 97.88 [degF] SILVINO CIDATZLE DO [facility] 09-08-2024 22:28-0400 Diastolic Blood Pressure Non-Invasive 54 mm[Hg] SILVINO PALAKATZLE DO [facility] 09-08-2024 22:28-0400 Heart rate 92 /min SILVINO CIDATZLE DO [facility] 09-08-2024 22:28-0400 Reason For Taking VItal Signs SILVINO CIDATZLE DO [facility] 09-08-2024 22:28-0400 Respiratory rate 16 /min SILVINO CIDATZLE DO [facility] 09-08-2024 22:28-0400 Systolic Blood Pressure Non-Invasive 118 mm[Hg] SILVINO CIDATZLE DO [facility] 09-08-2024 18:21-0400 Heart rate 90 /min SILVINO CIDATZLE DO [facility] 09-08-2024 09:08-0400 Blood Pressure Cuff Size SILVINO CIDATZLE DO [facility] 09-08-2024 09:08-0400 Blood Pressure Location SILVINO CIDATZLE DO [facility] 09-08-2024 09:08-0400 Blood Pressure Method SILVINO CIDATZLE DO [facility] 09-08-2024 09:08-0400 Heart rate 114 /min SILVINO CIDATZLE DO [facility] 09-08-2024 09:08-0400 Reason For Taking VItal Signs SILVINO PALAKATZLE DO [facility] 09-04-2024 10:54-0400 Body temperature 96.62 [degF] SILVINO CIDATZLE DO [facility] 09-03-2024 00:26-0400 Body temperature 97.34 [degF] SILVINO CIDATZLE DO [facility] 08-30-2024 22:54-0400 Body temperature 98.06 [degF] SILVINO CIDATZLE DO [facility] 08-26-2024 10:36-0400 Body weight 76 kg SILVINO ARDERLE DO [facility] 08-19-2024 06:00-0400 Body weight 75.3 kg SILVINO CIDATZSHITAL DO [facility] 08-15-2024 14:27-0400 Body height 170.2 cm SILVINO PEARL DO [facility] 08-15-2024 14:27-0400 Body weight 75.4 kg SILVINO PEARL DO [facility] 08-15-2024 14:27-0400 Body weight 26.03 kg/m2 SILVINO PEARL DO [facility] 08-15-2024 09:02-0400 Diastolic blood pressure 69 mm[Hg] Prema Ramos MD Work Phone: [facility] 08-15-2024 09:02-0400 Systolic blood pressure 128 mm[Hg] Prema Ramos MD Work Phone: [facility] 08-15-2024 07:28-0400 Heart rate 86 /min Prema Ramos MD Work Phone: [facility] 08-15-2024 07:18-0400 Body temperature 97.3 [degF] Prema Ramos MD Work Phone: [facility] 08-15-2024 07:18-0400 Respiratory rate 23 /min Prema Ramos MD Work Phone: [facility] 08-15-2024 07:18-0400 SaO2% (BldA) [Mass fraction] 95 % Prema Ramos MD Work Phone: [facility] 08-05-2024 08:00-0400 Body height 170.2 cm Prema Ramos MD Work Phone: 6(963)983-229124 [address] 08-05-2024 08:00-0400 Body mass index (BMI) [Ratio] 26.94 kg/m2 Prema Ramos MD Work Phone: 7(518)908-987624 [address] 08-05-2024 08:00-0400 Body weight 78.02 kg Prema Ramos MD Work Phone: 9(921)872-518757 [place] [address] 08-02-2024 13:52-0400 Body temperature 98 [degF] Dr. Kameron Caruso MD Work Phone: 7(443)723-872570 [place] [address] 08-02-2024 13:52-0400 Diastolic blood pressure 91 mm[Hg] Dr. Kameron Caruso MD Work Phone: 8(112)475-232570 [place] [address] 08-02-2024 13:52-0400 Heart rate 109 /min Dr. Kameron Caruso MD Work Phone: 3(684)591-432970 [place] [address] 08-02-2024 13:52-0400 Respiratory rate 16 /min Dr. Kameron Caruso MD Work Phone: 9(453)851-648870 [place] [address] 08-02-2024 13:52-0400 SaO2% (BldA) [Mass fraction] 98 % Dr. Kameron Caruso MD Work Phone: 2(738)648-778570 [place] [address] 08-02-2024 13:52-0400 Systolic blood pressure 153 mm[Hg] Dr. Kameron Caruso MD Work Phone: 7(717)360-353570 [place] [address] 08-02-2024 12:46-0400 Body height 167.[address] Kameron Caruso MD Work Phone: 6(373)310-636470 [place] [address] 08-02-2024 12:46-0400 Body mass index (BMI) [Ratio] 26.6 kg/m2 Dr. Kameron Caruso MD Work Phone: 2(673)742-021170 [place] [address] 08-02-2024 12:46-0400 Body weight [address] Kameron Caruso MD Work Phone: 5(413)109-157070 [place] [address] 06-26-2024 09:39-0500 Body mass index (BMI) [Ratio] 27.25 kg/m2 Emma Canaleshofreddie [employer] Work Phone: [facility] 06-26-2024 09:39-0500 Body weight 78.93 kg Emam Glasgow [employer] CONTR[employer] CLERK [employer] Work Phone: [facility] 06-26-2024 09:39-0500 Diastolic blood pressure 88 mm[Hg] Emma Canaleshof [employer].ORDER CONTROL CLERK [employer] Work Phone: [facility] 06-26-2024 09:39-0500 Heart rate 93 /min Emma Canaleshof [employer].ORDER CONTROL CLERK [employer] Work Phone: [facility] 06-26-2024 09:39-0500 Respiratory rate 16 /min Emma Gonzalesf [employer].ORDER CONTROL CLERK [employer] Work Phone: [facility] 06-26-2024 09:39-0500 SaO2% (BldA) [Mass fraction] 98 % Emma Glasgow [employer].ORDER CONTROL CLERK [employer] Work Phone: [facility] 06-26-2024 09:39-0500 Systolic blood pressure 144 mm[Hg] Emma Canaleshof [employer].ORDER CONTROL CLERK [employer] Work Phone: [facility] 05-31-2024 08:56-0500 Diastolic blood pressure 84 mm[Hg] Kameron Caruso MD Work Phone: [facility] 05-31-2024 08:56-0500 Systolic blood pressure 136 mm[Hg] Kameron Caruso MD Work Phone: [facility] 05-31-2024 08:47-0500 Body mass index (BMI) [Ratio] 27.28 kg/m2 Kameron Caruso MD Work Phone: [facility] 05-31-2024 08:47-0500 Body weight 79 kg Kameron Caruso MD Work Phone: [facility] 05-31-2024 08:47-0500 Heart rate 100 /min Kameron Caruso MD Work Phone: [facility] 05-31-2024 08:47-0500 Respiratory rate 18 /min Kameron Caruso MD Work Phone: [facility] 11-28-2023 09:42-0400 Diastolic blood pressure 78 mm[Hg] Kameron Caruso MD Work Phone: [facility] 11-28-2023 09:42-0400 Systolic blood pressure 142 mm[Hg] Kameron Caruso MD Work Phone: [facility] 11-28-2023 09:41-0400 Body mass index (BMI) [Ratio] 27.82 kg/m2 Kameron Caruso MD Work Phone: [facility] 11-28-2023 09:41-0400 Body weight 80.56 kg Kameron Caruso MD Work Phone: [facility] 11-28-2023 09:41-0400 Heart rate 68 /min Kameron Caruso MD Work Phone: [facility] 11-28-2023 09:41-0400 Respiratory rate 18 /min Kameron Caruso MD Work Phone: [facility] 10-10-2023 07:31-0400 Body mass index (BMI) [Ratio] 28.35 kg/m2 David Dupree APRN.ORDER CONTROL CLERK [employer]LO[employer] Work Phone: [facility] 10-10-2023 07:31-0400 Body temperature 97.5 [degF] David Dupree [employer].ORDER CONTROL CLERK [employer] Work Phone: [facility] 10-10-2023 07:31-0400 Body weight 82.1 kg David Dupree [employer].ORDER CONTROL CLERK [employer] Work Phone: [facility] 10-10-2023 07:31-0400 Diastolic blood pressure 82 mm[Hg] David Dupree [employer].ORDER CONTROL CLERK [employer] Work Phone: [facility] 10-10-2023 07:31-0400 Heart rate 58 /min David Dupree [employer].ORDER CONTROL CLERK [employer] Work Phone: [facility] 05-28-2024 07:31-0400 Respiratory rate 18 /min David Pakbury [employer].ORDER CONTROL CLERK [employer] Work Phone: [facility] 10-10-2023 07:31-0400 SaO2% (BldA) [Mass fraction] 100 % David Pakbury [employer].ORDER CONTROL CLERK [employer] Work Phone: [facility] 10-10-2023 07:31-0400 Systolic blood pressure 128 mm[Hg] David Pakbury [employer].ORDER CONTROL CLERK [employer] Work Phone: [facility] 09-29-2023 14:14-0400 Body mass index (BMI) [Ratio] 29 kg/m2 Radha Levine [employer].ORDER CONTROL CLERK [employer] Work Phone: [facility] 09-29-2023 14:14-0400 Body temperature 97.81 [degF] Radha Levine [employer].ORDER CONTROL CLERK [employer] Work Phone: [facility] 09-29-2023 14:14-0400 Body weight 84 kg Radha Levine [employer].ORDER CONTROL CLERK [employer] Work Phone: [facility] 09-29-2023 14:14-0400 Diastolic blood pressure 91 mm[Hg] Radha Levine [employer].ORDER CONTROL CLERK [employer] Work Phone: [facility] 09-29-2023 14:14-0400 Heart rate 54 /min Radha Levine [employer].ORDER CONTROL CLERK [employer] Work Phone: [facility] 09-29-2023 14:14-0400 Respiratory rate 18 /min Radha Levine [employer].ORDER CONTROL CLERK [employer] Work Phone: [facility] 09-29-2023 14:14-0400 SaO2% (BldA) [Mass fraction] 99 % Radha Levine [employer].ORDER CONTROL CLERK [employer] Work Phone: [facility] 09-29-2023 14:14-0400 Systolic blood pressure 148 mm[Hg] Radha Levine [employer].ORDER CONTROL CLERK [employer] Work Phone: [facility] 05-27-2022 09:42-0500 Body weight 83.83 kg Kameron Caruso MD Work Phone: [facility] 05-27-2022 09:42-0500 Diastolic blood pressure 84 mm[Hg] Kameron Caruso MD Work Phone: [facility] 05-27-2022 09:42-0500 Heart rate 68 /min Kameron Caruso MD Work Phone: [facility] 05-27-2022 09:42-0500 Respiratory rate 16 /min Kameron Caruso MD Work Phone: [facility] 05-27-2022 09:42-0500 Systolic blood pressure 136 mm[Hg] Kameron Caruso MD Work Phone: [facility] 03-02-2022 10:52-0400 Diastolic blood pressure 76 mm[Hg] Emma Tannhof [employer].ORDER CONTROL CLERK [employer] Work Phone: [facility] 03-02-2022 10:52-0400 Heart rate 92 /min Emma Tannhof [employer].ORDER CONTROL CLERK [employer]LO[employer] Work Phone: [facility] 03-02-2022 10:52-0400 Respiratory rate 18 /min Emma Tannhof [employer].ORDER CONTROL CLERK [employer]LO[employer] BANK Work Phone: [facility] 03-02-2022 10:52-0400 Systolic blood pressure 140 mm[Hg] Emma Tannhof [employer].ORDER CONTROL CLERK [employer]LO[employer]ANK Work Phone: [facility] 11-23-2021 09:39-0400 Body weight 83.1 kg Kameron Caruso MD Work Phone: [facility] 11-23-2021 09:39-0400 Diastolic blood pressure 80 mm[Hg] Kameron Caruso MD Work Phone: [facility] 11-23-2021 09:39-0400 Heart rate 84 /min Kameron Caruso MD Work Phone: [facility] 11-23-2021 09:39-0400 Respiratory rate 16 /min Kameron Caruso MD Work Phone: [facility] 11-23-2021 09:39-0400 Systolic blood pressure 138 mm[Hg] Kameron Caruso MD Work Phone: [facility] 10-16-2019 10:09-0400 BP Diastolic 72 mm[Hg] Santiago Miller [facility] [place] , [place] 10-16-2019 10:09-0400 BP Systolic 144 mm[Hg] Santiago Miller [facility] [place] [facility] [place] 10-16-2019 10:09-0400 Pulse (Heart Rate) 62 /min Santiago Miller [facility] [place], [place] 10-16-2019 10:09-0400 Pulse Oximetry 98 % Santiago Miller [facility] [place] , [place] 10-16-2019 10:09-0400 Respiratory Rate 18 /min [facility] [place] [place] 10-16-2019 09:15-0400 BMI (Body Mass Index) 29.44 kg/m2 Santiago Miller [facility], [place] 10-16-2019 09:15-0400 Body Temperature 97.81 [degF] Santiago Miller [facility] [place] 10-16-2019 09:15-0400 Body weight 85.28 kg Santiago Miller [facility] , [place] 10-16-2019 09:15-0400 Height 170.2 cm Santiago Miller [facility] , [place] 01-09-2019 12:06-0400 BP Diastolic 73 mm[Hg] Santiago Miller [facility] [place] [facility] [place] 01-09-2019 12:06-0400 BP Systolic 121 mm[Hg] Santiago Miller [facility] , [place] 01-09-2019 11:50-0400 Pulse (Heart Rate) 64 /min Santiaog Miller [facility], [place] 01-09-2019 11:50-0400 Pulse Oximetry 100 % Santiago Miller [facility] , [place] 01-09-2019 11:50-0400 Respiratory Rate 18 /min Santiago Miller [facility] [place] 01-09-2019 10:28-0400 BMI (Body Mass Index) 28.82 kg/m2 Santiago Miller [facility], [place] 01-09-2019 10:28-0400 Body weight 83.46 kg Santiago Miller [facility] , [place] 01-09-2019 10:28-0400 Height 170.2 cm Santiago Miller [facility] , [place] 01-09-2019 10:27-0400 Body Temperature 97.5 [degF] [facility] [place] [place] Encounters Encounter Date Encounter Type Care Provider Facility Start: 03-25-2025 ambulatory Efewongbe Oleghe OLS Fa cility:[facility] Start: 03-18-2025 ambulatory Efewongbe Oleghe OLS Fa cility:[facility] Start: 03-11-2025 ambulatory Efewongbe Oleghe OLS Fa cility:[facility] Start: 03-04-2025 ambulatory Efewongbe Oleghe OLS Fa cility:[facility] Start: 02-25-2025 ambulatory Efewongbe Oleghe OLS Fa cility:[facility] Start: 02-18-2025 ambulatory Efewongbe Oleghe OLS Fa cility:[facility] Start: 02-18-2025 Safia Martin - [place] Start: 02-11-2025 ambulatory Efewongbe Oleghe OLS Fa cility:[facility] Start: 02-11-2025 Safia Martin - [place] Start: 02-04-2025 ambulatory Efewongbe Oleghe OLS Fa cility:[facility] Start: 02-04-2025 Safia Martin - [place] Start: 01-28-2025 ambulatory Efewongbe Oleghe OLS Fa cility:[facility] Start: 01-28-2025 Safia Martin - [place] Start: 01-21-2025 ambulatory Efewongbe Oleghe OLS Fa cility:[facility] Start: 01-21-2025 Safia Martin - [place] Start: 01-14-2025 ambulatory Efewongbe Oleghe OLS Fa cility:[facility] Start: 01-14-2025 Safia Torres Start: 01-07-2025 End: 01-07-[address] Kameron Caruso MD Work Phone: -Veronica Torres Start: 01-07-2025 End: 01-07-2025 Safia Torres Start: 01-07-2025 End: 01-07-2025 ambulatory Kameron Caruso Facility:[facility] Start: 12-31-2024 End: 12-31-[address] Kameron Caruso MD Work Phone: [facility] Start: 12-31-2024 End: 12-31-2024 Dr. Safia Ruelas MD -[facility] Work Phone: Start: 12-24-2024 ambulatory Kameron Caruso Facilit y:[facility] Start: 12-24-2024 Safia SMOMER L - [place] Start: 12-17-2024 ambulatory Efewongbe Oleghe OLS Fa cility:[facility] Start: 12-17-2024 Safia Martin - [place] Start: 12-10-2024 ambulatory Efewongbe Oleghe OLS Fa cility:[facility] Start: 12-10-2024 Safia SOMMER L - [place] Start: 12-03-2024 ambulatory Efewongbe Oleghe OLS Fa cility:[facility] Start: 12-03-2024 Safia SOMMER L - [place] Start: 11-28-2024 End: 11-28-[address] Kameron Caruso MD Work Phone: [facility] Start: 11-28-2024 End: 11-28-2024 Bret WILKERSON -[facility] Work Phone: Start: 11-26-2024 ambulatory Efewongbe Oleghe OLS Fa cility:[facility] Start: 11-26-2024 Registered Referred Safia Torres Start: 11-26-2024 Safia Martin - [place] Start: 11-25-2024 End: 11-25-[address] Kameron Caruso MD Work Phone: Joseph Torres Start: 11-25-2024 Registered Referred Safia Torres Start: 11-25-2024 End: 11-25-2024 Safia Torres Start: 11-25-2024 End: 11-25-2024 ambulatory Efewongbe Olebonie OLS Facility:[facility] Start: 11-20-2024 End: 11-20-[address] Kameron Caruso MD Work Phone: [facility] Start: 11-20-2024 End: 11-20-2024 Bret Snyder MaurisioC -[facility] Work Phone: Start: 11-19-2024 ambulatory Efewongbe Olebonie OLS Fa cility:[facility] Start: 11-19-2024 Registered Referred Safia Torres Start: 11-19-2024 Safia Torres Start: 11-12-2024 End: 11-12-[address] Kameron Caruso MD Work Phone: -GILMA Torres Start: 11-12-2024 Registered Referred Safia Torres Start: 11-12-2024 End: 11-12-2024 Safia Torres Start: 11-12-2024 End: 11-12-2024 ambulatory Efewongbe Olebonie OLS Facility:[facility] Start: 11-05-2024 ambulatory Efewongbe Enricoe OLS Fa cility:[facility] Start: 11-05-2024 Registered Referred Safia Torres Start: 11-05-2024 Safia Torres Start: 10-30-2024 End: 10-30-[address] Kameron Caruso MD Work Phone: [facility] Start: 10-30-2024 End: 10-30-2024 Patient encounter procedure Bret Snyder DIE STAMPER- -[facility] Work Phone: Start: 10-30-2024 End: 10-30-2024 Bret Snyder DIE STAMPER-[facility] Work Phone: Start: 10-29-2024 End: 10-29-[address] Safia Ruelas MD -[facility] Work Phone: Start: 10-29-2024 End: 10-29-[address] Kameron Caruso MD Work Phone: [facility] Start: 10-29-2024 Registered Referred Safia Torres Start: 10-29-2024 End: 10-29-2024 Dr. Safia Ruelas MD -[facility] Work Phone: Start: 10-29-2024 End: 10-29-2024 ambulatory Safia VARGAS Facility:[facility] Start: 10-23-2024 ambulatory Safia Ruelas OLS Fa cility:[facility] Start: 10-23-2024 Registered Referred Safia Torres Start: 10-23-2024 Safia Torres Start: 10-22-2024 End: 10-22-2024 Patient encounter procedure Bret Snyder [facility] Work Phone: Start: 10-22-2024 End: 10-22-[address] Kameron Caruso MD Work Phone: [facility] Start: 10-22-2024 Registered Referred Safia Torres Start: 10-22-2024 End: 10-22-2024 Bert Snyder NP-[facility] Work Phone: Start: 10-15-2024 ambulatory Safia Ruelas OLS Fa cility:[facility] Start: 10-15-2024 Registered Referred Safia Torres Start: 10-15-2024 Safia Torres Start: 10-09-2024 End: 10-09-[address] Kameron Caruso MD Work Phone: [facility] Start: 10-09-2024 End: 10-09-2024 Patient encounter procedure Bret Snyder DIE STAMPER- -[facility] Work Phone: Start: 10-09-2024 End: 10-09-2024 Bret Snyder [facility] Work Phone: Start: 10-08-2024 ambulatory Efsherry Ruelas OLS Fa cility:[facility] Start: 10-08-2024 Registered Referred Safia Torres Start: 10-08-2024 Safia Torres Start: 10-02-2024 End: 10-02-[address] Mj Benavides MD -[facility] Work Phone: Start: 10-02-2024 End: 10-02-2024 Dr. Mj Benavides MD -[facility] Work Phone: Start: 10-02-2024 End: 10-02-[address] Kameron Caruso MD Work Phone: [facility] Work Phone: Start: 10-01-2024 ambulatory Efewjosé antonio Ruelas OLS Fa cility:[facility] Start: 10-01-2024 Registered Referred Safia Torres Start: 10-01-2024 Safia Torres Start: 09-29-2024 ambulatory Efewongbe Enricoe OLS Fa cility:[facility] Start: 09-29-2024 Registered Referred Safia Torres Start: 09-29-2024 Safia Torres Start: 09-24-2024 ambulatory Safia Ruelas OLS Fa cility:[facility] Start: 09-24-2024 Registered Referred Safia Torres Start: 09-24-2024 Safia Torres Start: 09-17-2024 ambulatory Safia Ruelas OLS Fa cility:[facility] Start: 09-17-2024 Registered Referred Safia Torres Start: 09-17-2024 Safia Torres Start: 09-11-2024 End: 09-11-2024 ambulatory Bret Snyder DIE STAMPER Facility:[facility] Start: 09-11-2024 End: 09-11-2024 Patient encounter procedure Bret Snyder DIE STAMPER-C -[facility] Work Phone: Start: 09-11-2024 End: 09-11-2024 Bret Snyder DIE STAMPER-C -[facility] Work Phone: Start: 09-10-2024 End: 09-10-[address] Safia Ruelas MD -[facility] Work Phone: Start: 09-10-2024 End: 09-10-2024 ambulatory Kameron Caruso Facility:[facility] Start: 09-10-2024 Registered Referred Safia Torres Start: 09-10-2024 End: 09-10-2024 Dr. Safia Ruelas MD -[facility] Work Phone: Start: 08-30-2024 End: 08-30-2024 Telephone encounter Kameron Caruso MD Work Phone: [facility] Comment on above: Tyler Chucho requesti ng verbal agree to follow Start: 08-15-2024 End: 09-09-2024 Evaluation and management of inpatient SILVINO CIDBEULAH DO [facility] Start: 08-09-2024 Evaluation and manag ement of inpatient KAMERON CARUSO Facility:[facility] Start: 08-06-2024 Evaluation and manag ement of inpatient [facility] Start: 08-02-2024 End: 08-02-2024 ambulatory [facility] Facility:[facility] Start: 08-02-2024 End: 08-15-2024 Evaluation and [...] encounter Kameron Caruso MD Work Phone: [facility] Comment on above: medication not on cu rrent med list Start: 06-26-2024 End: 06-26-2024 Office outpatient visit 25 minutes Emma Glasgow APRN.CNP Work Phone: [facility] [place] Comment on above: Atrial fibrillation, unspecified type (HCC) (Primary Dx); Hypothyroidism, unspecified type; Need for malaria prophylaxis Start: 06-26-2024 End: 06-26-2024 ambulatory [facility] GLASGOW Facility:[facility] Start: 06-25-2024 ambulatory KAMERON CARUSO Facil ity:[facility] Start: 06-24-2024 End: 06-24-2024 Telephone encounter Kameron Caruso MD Work Phone: [facility] [place] Comment on above: Patient Update Start: 06-11-2024 End: 06-11-2024 Telephone encounter Kameron Caruso MD Work Phone: [facility] [place] Comment on above: Results Start: 06-11-2024 End: 06-11-2024 ambulatory [facility] Facility:[facility] Start: 06-10-2024 End: 06-11-2024 Telephone encounter Kameron Caruso MD Work Phone: [facility] [place] Comment on above: Medication Problem Start: 05-31-2024 End: 05-31-2024 ambulatory [facility] Facility:[facility] Start: 05-31-2024 End: 05-31-2024 Patient encounter procedure Kameron Caruso MD Work Phone: [facility] [place] Comment on above: Essential hypertensi on, benign (Primary Dx); Type 2 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, without long-term current use of insulin (HCC); Chronic kidney disease, stage 3a (HCC); Hyperlipidemia, unspecified hyperlipidemia type; Hypothyroidism, unspecified type; Edema of left lower leg; Memory loss; Urinary incontinence, unspecified type; Irregular heart beat; Atrial fibrillation, unspecified type (HCC) Start: 05-23-2024 End: 05-23-2024 [facility] Facility:[facility] Start: 11-28-2023 End: 11-28-2023 [facility] Facility:[facility] Start: 11-28-2023 End: 11-28-2023 Patient encounter procedure Kameron Caruso MD Work Phone: [facility] [place] Comment on above: 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, unspecified CKD stage, unspecified whether care home insulin use (HCC) (Primary Dx); Essential hypertension, benign; Chronic kidney disease, stage 3a (HCC); Hyperlipidemia, unspecified hyperlipidemia type; Hypothyroidism, unspecified type; Edema of left lower leg; Memory loss; Type 2 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, without long-term current use of insulin (HCC) Start: 11-27-2023 End: 11-27-2023 [facility] Facility:[facility] Start: 10-10-2023 End: 10-10-2023 ambulatory KAMERON CARUSO Facility:[facility] Start: 10-10-2023 End: 10-10-2023 Office outpatient visit 25 minutes David Joon [employer].ORDER CONTROL CLERK [employer] Work Phone: [facility] Comment on above: Rash (Primary Dx) Start: 09-29-2023 End: 09-29-2023 ambulatory KAMERON CARUSO Facility:[facility] Start: 09-29-2023 End: 09-29-2023 Patient encounter procedure Radha Levine [employer].ORDER CONTROL CLERK [employer] Work Phone: [facility] Comment on above: Allergic contact lexi matitis due to plant (Primary Dx) Start: 09-19-2023 Refill Kameron nixon MD Work Phone: [facility] [place] Comment on above: Refill Request Start: 04-08-2023 Telephone encounter Kameron bucio MD Work Phone: [address] [place] [address] Comment on above: Refill Request Start: 11-25-2022 Telephone encounter Kameron bucio MD Work Phone: [facility] Comment on above: Patient Question Start: 05-27-2022 End: 05-27-2022 Patient encounter procedure Kameron Caruso MD Work Phone: [facility] [place] Comment on above: Essential hypertensi on, benign (Primary Dx); Hypothyroidism, unspecified type; Type 2 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, without long-term current use of insulin (HCC); Hyperlipidemia, unspecified hyperlipidemia type; Chronic kidney disease, stage 3a (HCC); Edema of left lower leg; Wellness examination Start: 05-27-2022 End: 05-27-2022 Patient encounter status Kameron Caruso MD Work Phone: [facility] [place] Start: 04-11-2022 Refill Kameron nixon MD Work Phone: [facility] Comment on above: Refill Request Start: 03-02-2022 ambulatory Kameron nixon MD Work Phone: [facility] [place] Comment on above: Back Pain Start: 03-02-2022 End: 03-02-2022 Patient encounter procedure Emma Glasgow [employer].ORDER CONTROL CLERK [employer] Work Phone: [facility] [place] Comment on above: Acute midline low ba ck pain without sciatica (Primary Dx) Start: 01-11-2022 Refill Mj ORTIZ RN.ORDER CONTROL CLERK [employer] Work Phone: [facility] [place] Comment on above: Refill Request Start: 01-11-2022 Refill Kameron nixon MD Work Phone: [facility] Comment on above: Refill Request Start: 12-16-2021 Telephone encounter Kameron bucio MD Work Phone: [facility] [place] Comment on above: Diabetic Testing Sup plies Start: 11-23-2021 End: 11-23-2021 Refill Kameron Caruso MD Work Phone: [facility] [place] Comment on above: 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, unspecified CKD stage, unspecified whether care home insulin use (HCC) (Primary Dx); Essential hypertension, benign; Hyperlipidemia, unspecified hyperlipidemia type; Stage 3b chronic kidney disease (HCC); Hypothyroidism, unspecified type; Memory loss Start: 10-14-2021 Refill Kameron nixon MD Work Phone: [facility] [place] Comment on above: Refill Request Start: 09-27-2021 Telephone encounter Kameron bucio MD Work Phone: [facility] Comment on above: information requeste d/rxs needed Start: 09-13-2021 Telephone encounter Kameron bucio MD Work Phone: [facility] [place] Comment on above: Patient [...] Work Phone: Start: 01-14-[address] aTtiana Caruso MD Work Phone: Start: 01-14-2025 Nucleated [...] mc rscp w/mnl difrntl wbc count Dr. Kamreon Caruso MD Work Phone: Start: 11-26-2024 Mean [...] 08-15-2024 Assay of magnesium Abram rin Nadine [employer] Work Phone: Start: 08-15-2024 Glucose measurement, blood Christos Gibson MD Work Phone: Start: 08-14-2024 Glucose measurement, blood Christos Gibson MD Work Phone: Start: 08-14-2024 Glucose measurement, blood Christos Gibson MD Work Phone: Start: 08-14-2024 Glucose measurement, blood Christos Gibson MD Work Phone: Start: 08-14-2024 Assay of magnesium Abdoule rin M Nadine [employer] Work Phone: Start: 08-13-2024 Glucose measurement, blood Christos Gibson MD Work Phone: Start: 08-13-2024 Glucose measurement, blood Christos Gibson MD Work Phone: Start: 08-13-2024 Glucose measurement, blood Christos Gibson MD Work Phone: Start: 08-13-2024 Glucose measurement, blood Felicity Castellano MD Work Phone: Start: 08-13-2024 Assay of magnesium Nase rin M Nadine [employer] Work Phone: Start: 08-13-2024 Glucose measurement, blood Felicity Castellano MD Work Phone: Start: 08-12-2024 Glucose measurement, blood Felicity Castellano MD Work Phone: Start: 08-12-2024 Glucose measurement, blood Felicity Castellano MD Work Phone: Start: 08-12-2024 Glucose measurement, blood Felicity Castellano MD Work Phone: Start: 08-12-2024 Assay of magnesium Nase rin M Nadine [employer] CONTR[employer] CLERK [employer] Work Phone: Start: 08-12-2024 Glucose measurement, blood Felicity Castellano MD Work Phone: Start: 08-11-2024 Glucose measurement, blood Felicity Castellano MD Work Phone: Start: 08-11-2024 Glucose measurement, blood Felicity Castellano MD Work Phone: Start: 08-11-2024 Glucose measurement, blood Felicity Castellano MD Work Phone: Start: 08-11-2024 Assay of magnesium Nase rin M Nadine [employer]-ORDER CONTR[employer] CLERK [employer] Work Phone: Start: 08-10-2024 Glucose measurement, blood Felicity Castellano MD Work Phone: Start: 08-10-2024 Glucose measurement, blood Felicity Castellano MD Work Phone: Start: 08-10-2024 End: 08-10-2024 Culture bacterial blood aerobic w/id isolates Radha Gr [employer] CONTR[employer] CLERK [employer] Work Phone: Start: 08-10-2024 Glucose measurement, blood Felicity Castellano MD Work Phone: Start: 08-10-2024 End: 08-10-2024 Glucose measurement, blood Felicity Castellano MD Work Phone: Start: 08-10-2024 Glucose measurement, blood Felicity Castellano MD Work Phone: Start: 08-10-2024 Assay of magnesium Abram Schulteameh [employer]-ORDER CONTR[employer] CLERK [employer] Work Phone: Start: 08-10-2024 Glucose measurement, blood [...] Start: 08-09-2024 Assay of magnesium Abram Mccoy [employer]-ORDER CONTR[employer] CLERK [employer] Work Phone: Start: 08-09-2024 Glucose measurement, blood Felicity Castellano MD Work Phone: Start: 08-08-2024 Glucose measurement, blood Felicity Castellano MD Work Phone: Start: 08-08-2024 Culture bct isol&prs mptv id isolate ea urine Bella Cardenas [employer] CONTROL CLERK [employer] Work Phone: Start: 08-08-2024 EXTRA MICRO Bella matthews [employer]-ORDER CONTR[employer] CLERK [employer] Work Phone: Start: 08-08-2024 URINALYSIS REFLEX TO CULTURE Bella Cardenas [employer]-ORDER CONTR[employer] CLERK [employer] Work Phone: Start: 08-08-2024 Ct head/brain w/o co ntrast material Bella Cardenas [employer]-ORDER CONTROL CLERK [employer] Work Phone: Start: 08-08-2024 Glucose measurement, blood Felicity Castellano MD Work Phone: Start: 08-08-2024 End: 08-08-2024 Glucose measurement, blood Felicity Castellano MD Work Phone: Start: 08-08-2024 Assay of magnesium Abram Mccoy [employer]-ORDER CONTR[employer] CLERK [employer] Work Phone: Start: 08-07-2024 Glucose measurement, blood Felicity Castellano MD Work Phone: Start: 08-07-2024 Glucose measurement, blood Felicity Castellano MD Work Phone: Start: 08-07-2024 Glucose measurement, blood Felicity Castellano MD Work Phone: Start: 08-07-2024 Glucose measurement, blood Felicity Castellano MD Work Phone: Start: 08-06-2024 Glucose measurement, blood Felicity Castellano MD Work Phone: Start: 08-06-2024 Assay of magnesium Abram Mccoy [employer]-ORDER CONTR[employer] CLERK [employer] Work Phone: Start: 08-06-2024 Glucose measurement, blood Felicity Castellano MD Work Phone: Start: 08-06-2024 Glucose measurement, blood Felicity Castellano MD Work Phone: Start: 08-06-2024 Radiologic exam swal low function contrast study Shanna Russ [employer] CONTR[employer] CLERK [employer] Work Phone: Start: 08-06-2024 SPEECH MODIFIED KEAGAN UM SWALLOW Shanna Russ [employer]-ORDER CONTROL CLERK [employer] Work Phone: Start: 08-06-2024 Glucose measurement, blood Felicity Castellano MD Work Phone: Start: 08-05-2024 Glucose measurement, blood Felicity Castellano MD Work Phone: Start: 08-05-2024 Assay of magnesium Nase rin Jaiden Nadine [employer]-ORDER CONTROL CLERK [employer] Work Phone: Start: 08-05-2024 Glucose measurement, blood Felicity Castellano MD Work Phone: Start: 08-05-2024 Glucose measurement, blood Felicity Castellano MD Work Phone: Start: 08-05-2024 [facility] compl spec&colr d Taran Traore [employer]-ORDER CONTROL CLERK [employer] Work Phone: Start: 08-05-2024 Glucose measurement, blood Felicity Castellano MD Work Phone: Start: 08-05-2024 Assay of magnesium Nase rin Jaiden Nadine [employer]-ORDER CONTROL CLERK [employer] Work Phone: Start: 08-05-2024 Glucose measurement, blood [...] Assay of magnesium Nase rin M Nadine [employer]-ORDER CONTR[employer] CLERK [employer] Work Phone: Start: 08-04-2024 Glucose measurement, blood Richard Mejia MD Work Phone: Start: 08-03-2024 Ct head/brain w/o co ntrast material Shaila Méndez PA-C Start: 08-03-2024 Sodium serum plasma or whole blood Shanna Denise MD Work Phone: Start: 08-03-2024 Glucose measurement, blood Richard Mejia MD Work Phone: Start: 08-03-2024 Radiologic exam abdo men 1 view Balbir Jaiden Nadine [employer]-ORDER CONTROL CLERK [employer] Work Phone: Start: 08-03-2024 Glucose measurement, blood [...] brain stem w/o contrast material Taran Traore [employer]-ORDER CONTROL CLERK [employer] Work Phone: Start: 08-03-2024 ABORH TYPE RECONFIRMATION Cindy CORDOVA Work Phone: Start: 08-03-2024 Assay of magnesium Abram scott Jaiden Cardenash [employer]-ORDER CONTROL CLERK [employer] B[employer] Work Phone: Start: 08-02-2024 Glucose measurement, blood [...] Performed By: #### X M #### [facility] ([facility]) [address] [place] [address] Start: 08-02-2024 EXTRA MICRO Taran Traore [employer]-ORDER CONTROL CLERK [employer] BANK Work Phone: Start: 08-02-2024 Hemoglobin glycosylated a1c Balbir Mccoy [employer]-ORDER CONTR[employer] CLERK [employer] Work Phone: Start: 08-02-2024 Hepatic function panel Balbir Mccoy [employer]-ORDER CONTR[employer] CLERK [employer] Work Phone: Start: 08-02-2024 Iadna s aureus ampli fied probe tq Balbir Cardenash [employer]-ORDER CONTR[employer] CLERK [employer] Work Phone: Start: 08-02-2024 URINALYSIS REFLEX TO CULTURE Taran Traore [employer]-ORDER CONTROL CLERK [employer] Work Phone: Start: 08-02-2024 Urnls dip stick/tabl et reagent auto microscopy Taran Traore [employer]-ORDER CONTROL CLERK [employer] Work Phone: Start: 08-02-2024 SARS-CoV-2, Influenz a [...] Author Start: 08-15-2025 Complete blood count Hemoglobin/Hematocrit [facility] Start: 08-15-2025 Creatinine measurement Serum Creatinine [facility] Start: 08-02-2025 Thyroid stimulating hormone measurement [facility] Start: 06-26-2025 Annual PCP Team Chronic Disease Visit Annual PCP Team Chronic Disease Visit [facility] Start: 05-31-2025 Annual PCP Team Chronic Disease Visit Annual PCP Team Chronic Disease Visit [facility] Start: 05-31-2025 Covid-19 Vaccine ( season) Covid-19 Vaccine ( season) [facility] Comment on above: Postponed from 01/14/2024 (Declined at t his time) Start: 05-31-2025 Pneumococcal Vaccine: 50+ (2 of 2 - PPSV23) Pneumococcal Vaccine: 50+ (2 of 2 - PPSV23) [facility] Comment on above: Postponed from 12/19/2019 (Declined at t his time) Start: 05-23-2025 Creatinine measurement Serum Creatinine [facility] Start: 05-23-2025 Hepatitis B screening Urine Albumin:Creatinine Ratio [facility] Start: 05-23-2025 Hepatitis B surface antibody level LDL Cholesterol [facility] Start: 03-04-2025 -[facility] - [place] Start: 02-25-2025 -[facility] - [place] Start: 02-02-2025 Hemoglobin A1c [facility] Start: 01-13-2025 Influenza vaccination [facility] Start: 01-03-2025 Glaucoma screening Dilated Retinal Exam [facility] Start: 12-24-2024 End: 12-24-2024 Patient encounter procedure 12/24/2024 9:20 AM EDT Office Visit Family [facility] Pitts [address] [place] [address] Kameron Caruso MD [address] [place], [place] [id number] 6 month follow up Family [facility] Pitts Comment on above: 6 month follow up Start: 11-28-2024 End: 02-27-2025 Comprehensive metabolic 2000 panel - Serum or Plasma COMPREHENSIVE METABOLIC PANEL Lab Routine Essential hypertension, benign Chronic kidney disease, stage 3a (HCC) Hyperlipidemia, unspecified hyperlipidemia type Expected: 11/28/2024 (Approximate), Expires: 02/27/2025 [facility] Work Phone: Comment on above: Expected: 11/28/2024 (Approximate), Expi res: 02/27/2025 Start: 11-28-2024 End: 02-27-2025 Hemoglobin A1c in Blood HEMOGLOBIN A1C Lab Routine Expected: 11/28/2024 (Approximate), Expires: 02/27/2025 [facility] Comment on above: Expected: 11/28/2024 (Approximate), Expi res: 02/27/2025 Start: 11-28-2024 End: 02-27-2025 Lipid 1996 panel - Serum or Plasma LIPID PANEL BASIC Lab Routine Essential hypertension, benign Hyperlipidemia, unspecified hyperlipidemia type Expected: 11/28/2024 (Approximate), Expires: 02/27/2025 [facility] Comment on above: Expected: 11/28/2024 (Approximate), Expi res: 02/27/2025 Start: 11-28-2024 End: 02-27-2025 Thyrotropin [Units/volume] in Serum or Plasma THYROID STIMULATING HORMONE Lab Routine Hypothyroidism, unspecified type Expected: 11/28/2024 (Approximate), Expires: 02/27/2025 [facility] Comment on above: Expected: 11/28/2024 (Approximate), Expi res: 02/27/2025 Start: 11-27-2024 Annual PCP Team Chronic Disease Visit Annual PCP Team Chronic Disease Visit [facility] Start: 11-27-2024 Anxiety Screening Anxiety Screening [facility] Start: 11-27-2024 Depression Screening Depression Screening [facility] Start: 11-27-2024 RSV Vaccine (1 - 1-dose 60+ series) RSV Vaccine (1 - 1-dose 60+ series) [facility] Comment on above: Postponed from 2004 (Declined at t his time) Start: 11-27-2024 RSV Vaccine (1 - 1-dose 75+ series) RSV Vaccine (1 - 1-dose 75+ series) [facility] Comment on above: Postponed from 10/26/2019 (Declined at t his time) Start: 11-26-2024 Creatinine measurement Serum Creatinine [facility] Start: 11-26-2024 Hepatitis B surface antibody level LDL Cholesterol [facility] Start: 11-20-2024 Hemoglobin A1c measurement HbA1C [facility] Start: 11-11-2024 Influenza vaccination Influenza Vaccine (#1) [facility] Comment on above: Postponed from 01/14/2024 (Declined at t his time) Start: 10-08-2024 End: 10-08-2024 ambulatory [facility] Start: 10-02-2024 Evaluation of diagnostic study results 12 Lead EKG performed by BMS [facility] Start: 08-02-2024 [facility] Start: 08-02-2024 SARS-CoV-2, Influenza & RSV (PCR) SARS-CoV-2, Influenza & RSV (PCR) [facility] Start: 08-02-2024 End: 08-02-2024 [facility] Start: 08-02-2024 Electrocardiographic procedure [facility] Start: 08-02-2024 Oxygen therapy [facility] Start: 07-24-2024 End: 10-23-2024 Thyrotropin [Units/volume] in Serum or Plasma THYROID STIMULATING HORMONE Lab Routine Hypothyroidism, unspecified type Expected: 07/24/2024, Expires: 10/23/2024 [facility] Work Phone: Comment on above: Expected: 07/24/2024, Expires: Start: 07-24-2024 End: 10-23-2024 Thyroxine (T4) free [Mass/volume] in Serum or Plasma T4 FREE/FREE THYROXINE Lab Routine Hypothyroidism, unspecified type Expected: 07/24/2024, Expires: 10/23/2024 [facility] Comment on above: Expected: 07/24/2024, Expires: Start: 06-25-2024 End: 06-25-2024 Patient encounter procedure 06/25/2024 9:40 AM EST Office Visit Family [facility] [address] [place], [place] [id number] Kameron Caruso MD [address] [place], [place] [id number] 1 mo f/u, new dx afib. [facility] Comment on above: 1 mo f/u, new dx afib. Start: 06-11-2024 End: 06-11-2024 Patient encounter procedure 06/11/2024 8:50 AM EST Office Visit Cardiology [address] [place], [place] [id number] Atrial fibrillation, unspecified type (HCC) [I48.91] Cardiology Comment on above: Atrial fibrillation, unspecified type (H CC) [I48.91] Start: 05-30-2024 Annual PCP Team Chronic Disease Visit Annual PCP Team Chronic Disease Visit [facility] Start: 05-30-2024 End: 08-29-2024 Comprehensive metabolic 2000 panel - Serum or Plasma COMPREHENSIVE METABOLIC PANEL Lab Routine Type 2 diabetes mellitus with diabetic chronic kidney disease, unspecified CKD stage, unspecified whether occupational therapist assistants insulin use (HCC) Essential hypertension, benign Chronic kidney disease, stage 3a (HCC) Hyperlipidemia, unspecified hyperlipidemia type Expected: 05/30/2024 (Approximate), Expires: 08/29/2024 [facility] Work Phone: Comment on above: Expected: 05/30/2024 (Approximate), Expi res: 08/29/2024 Start: 05-30-2024 Covid-19 Vaccine ( season) Covid-19 Vaccine ( season) [facility] Comment on above: Postponed from 01/13/2023 (Declined at t his time) Start: 05-30-2024 End: 08-29-2024 Hemoglobin A1c in Blood HEMOGLOBIN A1C Lab Routine Type 2 diabetes mellitus with diabetic chronic kidney disease, unspecified CKD stage, unspecified whether care home insulin use (HCC) Expected: 05/30/2024 (Approximate), Expires: 08/29/2024 [facility] Comment on above: Expected: 05/30/2024 (Approximate), Expi res: 08/29/2024 Start: 05-30-2024 Hepatitis C screening Hepatitis C Screening [facility] Comment on above: Postponed from 1962 (Declined at t his time) Start: 05-30-2024 End: 08-29-2024 Lipid 1996 panel - Serum or Plasma LIPID PANEL BASIC Lab Routine Type 2 diabetes mellitus with diabetic chronic kidney disease, unspecified CKD stage, unspecified whether occupational therapist assistants insulin use (HCC) Essential hypertension, benign Hyperlipidemia, unspecified hyperlipidemia type Expected: 05/30/2024 (Approximate), Expires: 08/29/2024 [facility] Comment on above: Expected: 05/30/2024 (Approximate), Expi res: 08/29/2024 Start: 05-30-2024 End: 08-29-2024 Microalbumin/Creatinine [Mass Ratio] in Urine ALBUMIN/CREATININE RATIO, URINE Lab Routine Type 2 diabetes mellitus with diabetic chronic kidney disease, unspecified CKD stage, unspecified whether care home insulin use (HCC) Expected: 05/30/2024 (Approximate), Expires: 08/29/2024 [facility] Comment on above: Expected: 05/30/2024 (Approximate), Expi res: 08/29/2024 Start: 05-30-2024 Pneumococcal Vaccine: 65+ (2 of 2 - PPSV23 or PCV20) Pneumococcal Vaccine: 65+ (2 of 2 - PPSV23 or PCV20) [facility] Comment on above: Postponed from 12/19/2019 (Declined at t his time) Start: 05-30-2024 End: 08-29-2024 Thyrotropin [Units/volume] in Serum or Plasma THYROID STIMULATING HORMONE Lab Routine Hypothyroidism, unspecified type Expected: 05/30/2024 (Approximate), Expires: 08/29/2024 [facility] Comment on above: Expected: 05/30/2024 (Approximate), Expi res: 08/29/2024 Start: 05-30-2024 End: 05-30-2024 Patient encounter procedure 05/30/2024 9:40 AM EST Office Visit Family [place] [facility] [address] [place] [phone] Kameron Caruso MD [address] [place] [id number] 6 mo f/u Family [facility] Comment on above: 6 mo f/u Start: 05-29-2024 Hemoglobin A1c measurement HbA1C [facility] Start: 05-16-2024 Creatinine measurement Serum Creatinine [facility] Start: 05-16-2024 Hepatitis B screening Urine Albumin:Creatinine Ratio [facility] Start: 05-16-2024 Hepatitis B surface antibody level LDL Cholesterol [facility] Start: 05-15-2024 Advance Directive Discussion Advance Directive Discussion [facility] Start: 01-14-2024 Influenza vaccination [facility] Start: 01-14-2024 [facility] Start: 01-04-2024 Glaucoma screening Dilated Retinal Exam [facility] Start: 01-04-2024 Hepatitis C antibody, confirmatory test Dilated Retinal Exam [facility] Start: 11-28-2023 End: 11-28-2023 Patient encounter procedure 11/28/2023 9:40 AM EDT Office Visit Family [place] [facility] [address] [place] [id number] Kameron Caruso MD [address] [place] [address] 6 mo follow up Family [facility] Comment on above: 6 mo follow up Start: 11-26-2023 ANNUAL PCP TEAM CHRONIC DISEASE VISIT ANNUAL PCP TEAM CHRONIC DISEASE VISIT [facility] Start: 11-26-2023 BP CONTROLLED (<130/80) BP CONTROLLED (<130/80) [facility] Start: 11-23-2023 Complete blood count Hemoglobin/Hematocrit [facility] Start: 11-23-2023 HEMOGLOBIN/HEMATOCRIT HEMOGLOBIN/HEMATOCRIT [facility] Start: 11-23-2023 Hepatitis B surface antibody level LDL CHOLESTEROL [facility] Start: 11-23-2023 SERUM CREATININE SERUM CREATININE [facility] Start: 11-14-2023 [facility] Start: 05-27-2023 ANNUAL PCP TEAM CHRONIC DISEASE VISIT ANNUAL PCP TEAM CHRONIC DISEASE VISIT [facility] Start: 05-27-2023 COVID-19 VACCINE (2 - Booster for Alyssa series) COVID-19 VACCINE (2 - Booster for Alyssa series) [facility] Comment on above: Postponed from 09/17/2020 (Declined at t his time) Start: 05-27-2023 HEPATITIS C SCREENING HEPATITIS C SCREENING [facility] Comment on above: Postponed from 1962 (Declined at t his time) Start: 05-25-2023 Hemoglobin A1c/Hemoglobin.total in Blood HBA1C [facility] Start: 05-19-2023 HEMOGLOBIN/HEMATOCRIT HEMOGLOBIN/HEMATOCRIT [facility] Start: 05-19-2023 Hepatitis B surface antibody level LDL CHOLESTEROL [facility] Start: 05-19-2023 SERUM CREATININE SERUM CREATININE [facility] Start: 05-15-2023 Advance Directive Discussion Advance Directive Discussion [facility] Start: 05-15-2023 Behavioral Health Screening Behavioral Health Screening [facility] Start: 03-02-2023 ANNUAL PCP TEAM CHRONIC DISEASE VISIT ANNUAL PCP TEAM CHRONIC DISEASE VISIT [facility] Start: 01-13-2023 Covid-19 Vaccine ( season) Covid-19 Vaccine ( season) [facility] Start: 01-13-2023 Influenza vaccination [facility] Start: 12-27-2022 Hepatitis C antibody, confirmatory test DILATED RETINAL EXAM [facility] Start: 11-24-2022 End: 01-24-2023 CBC panel - Blood by Automated count CBC Lab Routine Essential hypertension, benign Hypothyroidism, unspecified type Expected: 11/24/2022 (Approximate), Expires: 01/24/2023 [facility] Work Phone: Comment on above: Expected: 11/24/2022 (Approximate), Expi res: 01/24/2023 Start: 11-24-2022 End: 01-24-2023 Comprehensive metabolic 2000 panel - Serum or Plasma COMP METABOLIC PANEL Lab Routine Essential hypertension, benign Type 2 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, without long-term current use of insulin (HCC) Hyperlipidemia, unspecified hyperlipidemia type Expected: 11/24/2022 (Approximate), Expires: 01/24/2023 [facility] Work Phone: Comment on above: Expected: 11/24/2022 (Approximate), Expi res: 01/24/2023 Start: 11-24-2022 End: 01-24-2023 Hemoglobin A1c in Blood HGB A1C Lab Routine Type 2 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, without long-term current use of insulin (HCC) Expected: 11/24/2022 (Approximate), Expires: 01/24/2023 [facility] Work Phone: Comment on above: Expected: 11/24/2022 (Approximate), Expi res: 01/24/2023 Start: 11-24-2022 End: 01-24-2023 Lipid 1996 panel - Serum or Plasma LIPID PANEL BASIC Lab Routine Essential hypertension, benign Type 2 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, without long-term current use of insulin (HCC) Hyperlipidemia, unspecified hyperlipidemia type Expected: 11/24/2022 (Approximate), Expires: 01/24/2023 [facility] Work Phone: Comment on above: Expected: 11/24/2022 (Approximate), Expi res: 01/24/2023 Start: 11-24-2022 End: 01-24-2023 Thyrotropin [Units/volume] in Serum or Plasma TSH BLD Lab Routine Hypothyroidism, unspecified type Expected: 11/24/2022 (Approximate), Expires: 01/24/2023 [facility] Work Phone: Comment on above: Expected: 11/24/2022 (Approximate), Expi res: 01/24/2023 Start: 11-23-2022 3 comp foot exam completed DIABETIC FOOT EXAM [facility] Start: 11-23-2022 ANNUAL PCP TEAM CHRONIC DISEASE VISIT ANNUAL PCP TEAM CHRONIC DISEASE VISIT [facility] Start: 11-23-2022 Diabetic foot examination Diabetic Foot Exam [facility] Start: 11-20-2022 Hepatitis B screening URINE ALBUMIN:CREATININE RATIO [facility] Start: 11-20-2022 Hepatitis B surface antibody level LDL CHOLESTEROL [facility] Start: 11-20-2022 SERUM CREATININE SERUM CREATININE [facility] Start: 11-16-2022 Hemoglobin A1c/Hemoglobin.total in Blood HBA1C [facility] Start: 11-11-2022 Influenza vaccination INFLUENZA (#1) [facility] Comment on above: Postponed from 01/13/2022 (Declined at t his time) Start: 05-26-2022 End: 07-26-2022 CBC panel - Blood by Automated count CBC Lab Routine Essential hypertension, benign Stage 3b chronic kidney disease (HCC) Expected: 05/26/2022 (Approximate), Expires: 07/26/2022 [facility] Work Phone: Comment on above: Expected: 05/26/2022 (Approximate), Expi res: 07/26/2022 Start: 05-26-2022 End: 07-26-2022 Comprehensive metabolic 2000 panel - Serum or Plasma COMP METABOLIC PANEL Lab Routine Type 2 diabetes mellitus with diabetic chronic kidney disease, unspecified CKD stage, unspecified whether occupational therapist assistants insulin use (HCC) Essential hypertension, benign Hyperlipidemia, unspecified hyperlipidemia type Stage 3b chronic kidney disease (HCC) Expected: 05/26/2022 (Approximate), Expires: 07/26/2022 [facility] Work Phone: Comment on above: Expected: 05/26/2022 (Approximate), Expi res: 07/26/2022 Start: 05-26-2022 End: 07-26-2022 Hemoglobin A1c in Blood HGB A1C Lab Routine Type 2 diabetes mellitus with diabetic chronic kidney disease, unspecified CKD stage, unspecified whether occupational therapist assistants insulin use (HCC) Expected: 05/26/2022 (Approximate), Expires: 07/26/2022 [facility] Work Phone: Comment on above: Expected: 05/26/2022 (Approximate), Expi res: 07/26/2022 Start: 05-26-2022 End: 07-26-2022 Lipid 1996 panel - Serum or Plasma LIPID PANEL BASIC Lab Routine Essential hypertension, benign Hyperlipidemia, unspecified hyperlipidemia type Expected: 05/26/2022 (Approximate), Expires: 07/26/2022 [facility] Work Phone: Comment on above: Expected: 05/26/2022 (Approximate), Expi res: 07/26/2022 Start: 05-26-2022 End: 07-26-2022 Thyrotropin [Units/volume] in Serum or Plasma TSH BLD Lab Routine Hypothyroidism, unspecified type Expected: 05/26/2022 (Approximate), Expires: 07/26/2022 [facility] Work Phone: Comment on above: Expected: 05/26/2022 (Approximate), Expi res: 07/26/2022 Start: 05-23-2022 Hemoglobin A1c/Hemoglobin.total in Blood HBA1C [facility] Start: 05-18-2022 ANNUAL PCP TEAM CHRONIC DISEASE VISIT ANNUAL PCP TEAM CHRONIC DISEASE VISIT [facility] Start: 05-17-2022 Hepatitis B surface antibody level LDL CHOLESTEROL [facility] Start: 05-17-2022 SERUM CREATININE SERUM CREATININE [facility] Start: 05-15-2022 ADVANCE DIRECTIVE DISCUSSION ADVANCE DIRECTIVE DISCUSSION [facility] Start: 01-13-2022 Influenza vaccination [facility] Start: 01-11-2022 Hepatitis C antibody, confirmatory test DILATED RETINAL EXAM [facility] Start: 11-14-2021 Hemoglobin A1c/Hemoglobin.total in Blood HBA1C [facility] Start: 11-06-2021 Screening for malignant neoplasm of breast [facility] Start: 11-05-2021 3 comp foot exam completed DIABETIC FOOT EXAM [facility] Start: 11-05-2021 Adult depression screening assessment DEPRESSION SCREENING [facility] Start: 11-04-2021 Hepatitis B screening URINE ALBUMIN:CREATININE RATIO [facility] Start: 10-15-2021 Hepa vaccine adult dose for intramuscular use HEPATITIS A VACCINE ADULT IM Immunization/Injection Routine Need for vaccination Expected: 10/15/2021 [facility] Work Phone: Comment on above: Expected: 10/15/2021 Start: 10-15-2021 Tdap vaccine 7 yrs/> im TDAP VACCINE AGE 7+ IM Immunization/Injection Routine Need for vaccination Expected: 10/15/2021 [facility] Work Phone: Comment on above: Expected: 10/15/2021 Start: 05-15-2021 ADVANCE DIRECTIVE DISCUSSION ADVANCE DIRECTIVE DISCUSSION [facility] Start: 05-15-2021 DEPRESSION ASSESSMENT DEPRESSION ASSESSMENT [facility] Start: 10-23-2020 PNEUMOCOCCAL: 65+ (2 - PPSV23 if available, else PCV20) PNEUMOCOCCAL: 65+ (2 - PPSV23 if available, else PCV20) [facility] Start: 10-23-2020 PNEUMOCOCCAL: 65+ (2 - PPSV23 or PCV20) PNEUMOCOCCAL: 65+ (2 - PPSV23 or PCV20) [facility] Start: 10-16-2020 HEMOGLOBIN/HEMATOCRIT HEMOGLOBIN/HEMATOCRIT [facility] Start: 09-17-2020 COVID-19 VACCINE (2 - Booster for Alyssa series) COVID-19 VACCINE (2 - Booster for Alyssa series) [facility] Start: 12-19-2019 Pneumococcal vaccination [facility] Start: 12-19-2019 Pneumococcal Vaccine: 65+ (2 - PPSV23 or PCV20) Pneumococcal Vaccine: 65+ (2 - PPSV23 or PCV20) [facility] Start: 12-19-2019 PNEUMOCOCCAL: 65+ (2 - PPSV23 or PCV20) PNEUMOCOCCAL: 65+ (2 - PPSV23 or PCV20) [facility] Start: 11-08-2019 Screening for malignant neoplasm of colon [facility] Start: 10-26-2019 [facility] Start: 01-13-2019 Influenza vaccination Flu vaccine (#1) [place], [place] Start: 12-23-2018 Annual Wellness Visit (AWV) Annual Wellness Visit (AWV) [place] Start: 2009 DEXA (modify frequency per FRAX score) DEXA (modify frequency per FRAX score) [place] Start: 2009 Pneumococcal 65+ years Vaccine (1 of 1 - PPSV23) Pneumococcal 65+ years Vaccine (1 of 1 - PPSV23) [place] Start: 2009 Pneumococcal 65+ years Vaccine (1 of 2 - PCV13) Pneumococcal 65+ years Vaccine (1 of 2 - PCV13) [place] Start: 10-26-2007 Annual Wellness Visit (AWV) Annual Wellness Visit (AWV) [place] Start: 2004 Hepatitis B Vaccine (1 of 3 - Risk 3-dose series) Hepatitis B Vaccine (1 of 3 - Risk 3-dose series) [facility] Start: 2004 RSV Vaccine (1 - 1-dose 60+ series) RSV Vaccine (1 - 1-dose 60+ series) [facility] Start: 10-26-1999 Screening for osteoporosis DEXA (modify frequency per FRAX score) [place], [place] Start: 1994 Breast cancer screen Breast cancer screen [place], [place] Start: 1994 Colon cancer screen colonoscopy Colon cancer screen colonoscopy [place] Start: 1994 Screening for malignant neoplasm of breast Breast cancer screen [place] Start: 1994 Screening for malignant neoplasm of colon Colon cancer screen colonoscopy [place] Start: 1994 Shingles Vaccine (1 of 2) Shingles Vaccine (1 of 2) [place] Start: 1984 Lipid screen Lipid screen [place] Start: 1965 Screening for malignant neoplasm of cervix [facility] Start: 10-26-1963 DTaP/Tdap/Td vaccine (1 - Tdap) DTaP/Tdap/Td vaccine (1 - Tdap) [place] Start: 10-26-1963 Third diphtheria, tetanus and acellular pertussis (DTaP) vaccination [facility] Start: 10-26-1963 Urine microalbumin profile [facility] Start: 1962 BP CONTROLLED (<130/80) BP CONTROLLED (<130/80) [facility] Start: 1962 HEPATITIS C SCREENING HEPATITIS C SCREENING [facility] Start: 1954 Lipid panel Lipid screen [place], [place] Start: 1944 Creatinine measurement Creatinine monitoring [place], [place] Start: 1944 Creatinine monitoring Creatinine monitoring [place], [place] Start: 1944 Hepatitis C screen Hepatitis C screen [place], [place] Start: 1944 Hepatitis C screening [facility] Start: 1944 Potassium monitoring Potassium monitoring [place], [place] Start: 1944 Screening for osteoporosis [facility] Start: 1944 Tetanus vaccination [facility] End: 01-09-2019 Blood glucose - POCT Blood glucose - POCT Point of Care Testing Routine One Time for 1 Occurrences starting 01/09/2019 until 01/09/2019 [place] Comment on above: One Time for 1 Occurrences starting 12/14 until 01/09/2019 ECG COMPLETE [facility] Comment on above: Ordered: 05/31/2024 End: 05-31-2025 Echocardiography ECHO Cardiology Routine Atrial fibrillation, unspecified type (HCC) 1 Occurrences starting 05/31/2024 until 05/31/2025 [facility] Comment on above: 1 Occurrences starting 05/31/2024 until 05/31/2025 Patient referral [facility] Work Phone: End: 01-09-2019 Pulse Oximetry Spot Check Pulse Oximetry Spot Check Respiratory Care Routine One Time for 1 Occurrences starting 01/09/2019 until 01/09/2019 [place] Comment on above: One Time for 1 Occurrences starting 12/14 until 01/09/2019 End: 08-02-2024 PV FLUOROSCOPY OR [facility] End: 08-02-2024 Standard ECG [facility] [place] [facility] Immunizations Immunization Date Immunization Notes Care Provider Fa sonya 07-23-2020 SARS-CoV-2 (COVID-19 ) Ad26 vaccine, recombinant SILVINO PEARL DO Tyler Garcia Comment on above: Result Comment: 2024: [id number] 02-27-2020 influenza, high dose seasonal, preservative-free Kameron Caruso MD Work Phone: [facility] 02-27-2020 influenza virus vaccine, unspecified formulation Kameron Caruso MD Work Phone: [facility] 10-24-2019 pneumococcal conjuga te vaccine, 13 valent Kameron Caruso MD Work Phone: [facility] 10-24-2019 zoster vaccine recombinant Kameron Caruso MD Work Phone: [facility] 07-25-2019 influenza virus vaccine, unspecified formulation SILVINO PEARL DO [facility] 07-25-2019 influenza, seasonal, injectable Kameron Caruso MD Work Phone: [facility] 07-25-2019 zoster vaccine recombinant Kameron Caruso MD Work Phone: [facility] 04-13-2015 influenza virus vaccine, unspecified formulation SILVINO PEARL DO [facility] 05-01-2014 influenza virus vaccine, unspecified formulation SILVINO PEARL DO [facility] 05-01-2014 influenza, high dose seasonal, preservative-free Kameron Caruso MD Work Phone: [facility] 02-22-2012 influenza virus vaccine, unspecified formulation Kameron Caruso MD Work Phone: [facility] Work Phone: 03-19-2007 influenza virus vaccine, unspecified formulation Kameron Caruso MD Work Phone: [facility] Work Phone: Payers Date Payer Category Payer Medicare [id number] 2024 Unknown [id number] 2024 Self-pay 2018 Medicare [employer] ADVANTAGE [employer]VANTAGE xxxxxxxxxxx 2018-Present [phone] [address] [place] [address] xxxxxxxxxxx [id number] 2018 Unknown [id number] 2013 [facility] [place] [id number] 2013-Present [phone] [address] [place] [address] O [id number] 2013 Medicare [id number] 2013 Medicare (Managed Care) 1.2. [id number] 2013 Medicare [id number] 1944 Unknown [id number] 1944 Unknown [id number] 1944 Unknown [id number] 1944 Unknown [id number] 1944 Unknown [id number] Unknown [id number] Unknown [id number] Unknown [id number] Unknown [id number] Unknown [id number] Unknown [id number] 2.16.840.1.641965.3.579.2 .462 Unknown [id number] 2.16840.1.753546.3.579.2 .462 Unknown [id number] 2.16840.1.252846.3.579.2 .462 Unknown [id number] 2.16.840.1.375765.3.579.2 .462 Unknown [id number] 2.840.1.507939.3.579.2 .462 Unknown [id number] 2.840.1.335602.3.579.2 .462 Unknown [id number] 2.840.1.997505.3.579.2 .462 Unknown [id number] 2.840.1.099231.3.579.2 .462 Unknown [id number] 2.840.1.779431.3.579.2 .462 Unknown [id number] 2.840.1.025892.3.579.2 .462 Unknown [id number] 2.840.1.281584.3.579.2 .462 Unknown [id number] 2.840.1.980173.3.579.2 .462 Unknown [id number] 2.840.1.251675.3.579.2 .462 Unknown [id number] 2.840.1.894502.3.579.2 .462 Unknown [id number] 2.840.1.649919.3.579.2 .462 Unknown [id number] 2.840.1.916461.3.579.2 .462 Unknown [id number] 2.840.1.943069.3.579.2 .462 Unknown [id number] 2.840.1.313332.3.579.2 .462 Unknown [id number] 2.840.1.087729.3.579.2 .462 Unknown [id number] 2.840.1.990990.3.579.2 .462 Unknown [id number] 2..840.1.083884.3.579.2 .462 Unknown [id number] 2.16.840.1.725245.3.579.2 .462 Unknown [id number] 2.16.840.1.965832.3.579.2 .462 Unknown [id number] 2.840.1.462863.3.579.2 .462 Unknown [id number] 2.840.1.350039.3.579.2 .462 Unknown [id number] 2.840.1.906974.3.579.2 .462 Unknown [id number] 2.840.1.218891.3.579.2 .462 Unknown [id number] 2.840.1.730619.3.579.2 .462 Unknown [id number] 2.840.1.242869.3.579.2 .462 Unknown [id number] 2.840.1.456142.3.579.2 .462 Unknown [id number] 2.840.1.117451.3.579.2 .462 Unknown [id number] 2.840.1.115592.3.579.2 .462 Unknown [id number] 2.840.1.156540.3.579.2 .462 Unknown [id number] 2.840.1.681746.3.579.2 .462 Unknown [id number] 2.840.1.547239.3.579.2 .462 Unknown [id number] 2.840.1.961116.3.579.2 .462 Unknown [id number] 2.840.1.920135.3.579.2 .462 Unknown [id number] 2.840.1.597046.3.579.2 .462 Social History Date Type Detail Facility Start: 01-09-2019 End: 08-02-2024 Tobacco smoking status NHIS Never smoker [facility] Start: 01-09-2019 End: 11-25-2022 Alcohol intake Never [facility] Work Phone: Start: 12-24-2018 History SDOH [facility] Start: 1945 Sex Assigned At [facility] Start: 10-16-2019 Alcohol intake Lifetime non-d hortencia (finding) [place] Exposure to SARS-CoV -2 (event) [facility] [place] Start: 05-18-2021 End: 06-26-2024 Alcohol intake Current non-drinker of alcohol (finding) [facility] Start: 11-13-2021 End: 03-02-2022 Exposure to SARS-CoV-2 (event) Not sure [facility] Start: 02-02-2011 End: 03-02-2022 Tobacco use and exposure Smokeless tobacco non-user [facility] Start: 11-25-2022 End: 11-28-2023 History of Social function [facility] Work Phone: Adult Depression Screening Assessment 0 [facility] Work Phone: Start: 06-22-2005 End: 08-02-2024 Sex Female (finding) [facility] Start: 1945 Sex Assigned At Female [facility] Sexual Orientation [facility] Medical Equipment Procedure Code Equipment Code Equipment Original Text Equipment Identifier Dates [id number], [id number], [id number] Start: 11-30-2020 End: 04-08-2023 Comment on above: [...] Functional Status Room check performed Gillian anny [place] 09-09-2024 Functional Status [facility] 09-09-2024 Functional Status Skin Care Prev entative Intervention(s) heel(s)s elevated Tyler [place] 09-08-2024 Functional Status [facility] 09-08-2024 Functional Status [facility] 09-06-2024 Functional Status 11pm-7am [facility] 09-06-2024 Functional Status Antiembolism S tocking On/Re-applied bilateral knee high [facility] 09-05-2024 Functional Status Oral Care Maximum [facility] Functional Status [facility] 09-05-2024 Functional Status Done [facility] 09-04-2024 Functional Status [facility] 09-04-2024 Functional Status [facility] 09-03-2024 Functional Status NPO Status Maintained A maryamgonzalo [place] 09-03-2024 Functional Status None [facility] 09-03-2024 Functional Status [facility] 08-29-2024 Functional Status [facility] 08-29-2024 Functional Status [facility] 08-27-2024 Functional Status Orthotics, Dev ice Worn Per Schedule Yes [facility] 08-27-2024 Functional Status [facility] 08-26-2024 Functional Status [facility] 08-23-2024 Functional Status [facility] 08-23-2024 Functional Status Breakfast Percent 25 Gillian [facility] 08-20-2024 Functional Status [facility] 08-19-2024 Functional Status [facility] 08-16-2024 Functional Status Single level h ome, basement laundry [facility] 08-16-2024 Functional Status Outside Stairs Rail Rail on left going up [facility] 08-15-2024 Functional Status Sensory Defici ts Speech deficit [facility] 10-14-2014 Are you deaf, or do you have serious difficulty hearing No [facility] 10-14-2014 Are you blind, or do you have serious difficulty seeing, even when wearing glasses No [facility] 10-14-2014 Do you have serious difficulty walking or climbing stairs No [facility] 10-14-2014 Do you have difficul ty dressing or bathing No [facility] 10-14-2014 Because of a physica l, mental, or emotional condition, do you have difficulty doing errands alone such as visiting a physician's office or shopping No [facility] Mental Status Date Assessment Result Facility 09-09-2024 Mental Status Does not interact [facility] 09-08-2024 Mental Status [facility] 09-08-2024 Mental Status [facility] 08-02-2024 Cognitive function Awake;Alert;F ollows Commands [facility] Work Phone: 10-14-2014 Because of a physica l, mental, or emotional condition, do you have serious difficulty concentrating, remembering, or making decisions No [facility] Clinical Notes 11-03-2020 to 10-02-2024 Note Date & Type Note Facility 10-02-2024 Evaluation note Diagnosis Onset Date Resolution Acute ischemic right MCA stroke acute October 02, 2024 9:29am Essential hypertension acute 2024 9:29am Hyperlipidemia acute October 02, 2024 9:29am Paroxysmal atrial fibrillation with RVR acute October 02, 2024 9:29am [facility] Work Phone: [phone]) 623-972904-28-2025 Note Discharge Instructions Thank you for allowing [...] 3-7 days Where:[address] [place] [address]- Additional Information: Please schedule follow up PCP [...] standard right Seat cushion, 99 month(s), Tyler [phone], 09/02/24 8:22:00 EDT Transfer of Care Wound [...] depending on your insurance coverage. Check with yourOmega Diagnostics company about what is covered. Keeping follow-up [...] 08/04/2017 Document Revised: 05/04/2018 Document Reviewed: 08/04/2017 [employer] Patient Education 2020 [employer] Additional Information VACCINATE! IT SAVES LIVES! Members of the community who have not yet received the COVID-19 vaccine and would like to receive it can visit one of [facility] vaccine clinics. There are many vaccine clinic locations within the [facility]. For locations and available times, please visit [email or web address].[place].gov/. It is important to note that some COVID mobile vaccine clinics are held outdoors and may be canceled in rainy or stormy conditions. To learn more about pediatric vaccinations (ages 5-11), we invite you to visit the [facility] webpage. https://www.[email or web address]/pages/[email or web address]-Dhcfw-Khjhflexqgy-Wvegxkxpos-Fdzef-Dhv stions.htmlTo learn more about the COVID-19 vaccine, we invite you to visit the CDC website for a list of frequently asked questions.https://www.cdc.gov/coronavirus/2019-ncov/vaccines/faq.html [facility] Patient Portal Access Instructions: Stay connected with your healthcare team and access your personal medical information anytime with the [facility] Patient Portal. Please follow the directions below to create your [facility] account: 1.Access the email account you provided upon registration to the hospital/physician office.2.Look for an invitation email from [facility].3.Open the email and access the invitation link: AcceptInvitation to [facility].4.Fill in the required richards to create your account. To access your account, visit [email or web address]. Click the blue button labeled "Access Patient [...] who you will allowto register on the [facility] Patient Portal for access to your information. You can also access the [facility] Patient Portal on the [facility] dahlia. Simply click on "Patient Portal" and then log into your account. If you would like to receive a full copy of your medical records, please contact the [facility] Medical Records Department by calling [phone], Monday through Monday between 8 a.m. and [...] Call your local pharmacy or go to http://bit.ly/1U0Ky2b to find one close to you.3.Make use of household items: Use cat litter or old coffee grounds to dispose medications if other options arenot available. Mix your drugs with these household products, seal them in an airtight container andthrow it into the garbage. Call [facility]: [phone] to be sure your drugs can be [...] aware that I should contact my doctor. Patient/Transformer Molder Signature: Date/Time: Relationship to Patient: Witness Name/Signature: Date/Time: Tyler [id number] Note Discharge Instructions Thank you for allowing [...] KAMERON CARUSO MD When:Within 3-7 days Where:[address] [place] [address]- Additional Information: Please schedule follow up PCP [...] standard right Seat cushion, 99 month(s), Tyler [id number], 09/02/24 8:22:00 EDT Transfer of Care Wound [...] depending on your insurance coverage. Check with your[employer] about what is covered. Keeping follow-up visits [...] 08/04/2017 Document Revised: 05/04/2018 Document Reviewed: 08/04/2017 [employer] Patient Education 2020 [employer] Additional Information VACCINATE! IT SAVES LIVES! Members of the community who have not yet received the COVID-19 vaccine and would like to receive it can visit one of [facility] vaccine clinics. There are many vaccine clinic locations within the [facility]. For locations and available times, please visit https://[email or web address].[place].gov/. It is important to note that some COVID mobile vaccine clinics are held outdoors and may be canceled in rainy or stormy conditions. To learn more about pediatric vaccinations (ages 5-11), we invite you to visit the [facility] webpage. https://www.[email or web address]/pages/[email or web address]-Peeyk-Cwjmrvrevwj-Oydrtkcady-Nueny-Rhp stions.htmlTo learn more about the COVID-19 vaccine, we invite you to visit the CDC website for a list of frequently asked questions.https://www.cdc.gov/coronavirus/2019-ncov/vaccines/faq.html [facility] Patient Portal Access Instructions: Stay connected with your healthcare team and access your personal medical information anytime with the [facility] Patient Portal. Please follow the directions below to create your [facility] account: 1.Access the email account you provided upon registration to the hospital/physician office.2.Look for an invitation email from [facility].3.Open the email and access the invitation link: AcceptInvitation to [facility].4.Fill in the required richards to create your account. To access your account, visit [email or web address]. Click the blue button labeled "Access Patient Portal" and then log in with the username and password that you created in the steps above. You will be able to view your test results, lab results, a summary of your visits, upcoming appointments and more. There is also a convenient messaging option where you can send secure messages to your p R2integratedvider. In addition, you will have the ability to download any documents or summaries to your computer and/or send the information securely to a physician. Remember that your healthcare information is confidential, so carefully consider who you will allowto register on the [facility] Patient Portal for access to your information. You can also access the [facility] Patient Portal on the [facility] Scyronwhere dahlia. Simply click on "Patient Portal" and then log into your account. If you would like to receive a full copy of your medical records, please contact the [facility] Medical Records Department by calling [phone], Monday through Monday between 8 a.m. and [...] Call your local pharmacy or go to http://bit.Netrada/9U4Se8q to find one close to you.3.Make use of household items: Use cat litter or old coffee grounds to dispose medications if other options arenot available. Mix your drugs with these household products, seal them in an airtight container andthrow it into the garbage. Call [facility]: [phone] to be sure your drugs can be [...] aware that I should contact my doctor. Patient/Transformer Molder Signature: Date/Time: Relationship to Patient: Witness Name/Signature: Date/Time: Tyler [id number] Physical medicine and rehab Discharge summary Date [...] in discharge valuation. She was [facility] to [facility] from [facility] stay 08/02 [...] self-care assistance needs decision made to request penitentiary facility. Approval is requested. Patient was to [...] Ordered -- 08/15/24 17:18:00 EDT, AMI HEATON APRN-ORDER CONTROL CLERK BLOOD BANK, [facility] per policy Physical Exam Vitals [...] oral tablet)1 tab(s) PEG tube every day. [id number] Microgram PEG tube once a day. metoprolol [...] KAMERON CARUSO MD When:Within 3-7 days Where:[address] [place] [address]- Additional Information: Please schedule follow up PCP [...] SILVINO PEARL DO on 09/09/2024 01:46 PM [place] [address]-28-2025 Nurse Progress note Nursing GG Entered On: 09/09/2024 10:55 EDT Performed On: 09/09/2024 10:55 EDT by Abigail Rodas RN Nursing GG's OT GG Grid Eating : Not Completed Abigail Rodas RN - 09/09/2024 10:55 EDT Digitally Signed by Abigail Rodas RN on 09/09/2024 10:55 AM [place] [address]-27-2025 Nurse Progress note Nursing GG Entered On: 09/08/2024 17:39 EDT Performed On: 09/08/2024 17:39 EDT by Rob Alarcon RN Nursing GG's OT GG Grid Eating : Not Completed Oral Hygiene : Not Completed Toilet Hygiene : Substantial/Maximal Assistance Toilet Transfer : Substantial/Maximal Assistance Rob Alarcon RN - 09/08/2024 17:39 EDT Digitally Signed by Rob Alarcon RN on 09/08/2024 05:[address]27-2025 Nurse Progress note Pt had 250ml residual, 12:30pm bolus was held! Digitally Signed by Rob Alarcon RN on 09/08/2024 12:47 PM [place] [address]-25-2025 Physical medicine and rehab Progress note Rehab [...] candidate. She was then transferred to a [facility] for further management. CT of [...] Rate64(SEP 05 16:46)64(SEP 05 16:46)85(SEP 05 09:40) BZT978(SEP 05 16:36)138(SEP 05 16:36)H 158(SEP 05 09:52) [...] PEARL DO on 09/06/2024 12:34 PM Tyler [id number] Hospital Discharge instructions Patient Education 09/05/2024 14:15:00 [...] depending on your insurance coverage. Check with yourOmega Diagnostics company about what is covered. Keeping follow-up [...] 08/04/2017 Document Revised: 05/04/2018 Document Reviewed: 08/04/2017 [employer] Patient Education 2020 [employer]. Follow Up Care 08/15/2024 08:51:25 With:RIMMA POWERS MD Address: [facility] ([address], [place]) When:10/08/2024 16:00:00 Comments:Neurosurgeon With:JONNIE BANSAL MD Address: [facility] When: Unknown Comments:GI, No appointment needed until PEG is ready to be removed or concerns arise With:KAMERON CARUSO MD Address: [address] [place] [address]- When:3-7 days Comments:Please schedule follow up PCP [...] less than 3 seconds. Ongoing hemiparesis VITALS QmasecFdeqPAAykevNCIcT1BVL9BxucSz(kg) 09/05 09:5236.3--038734ZM 09/05 09:40----85----RA 09/04 23:3236.6--543121WE 09/04 21:2436.5--129249QK 09/04 16:01----72----RA 24 Hr Tmax: 36.6 at [...] tab(s), PEG, Daily, 08/15/24 17:09:00 EDT balsam Prescott-castor oil topical (Venelex 788 mg-87 mg/g topical [...] None Problems (6) CVA (cerebral vascular accident) (257262096) Diabetes mellitus (228725810) Dysphagia (43628984) Hyperlipidemia (21109382) Hypertension (3358935328) Osteoarthritis (1245204584) ASSESSMENT/PLAN: Right basal ganglia hemorrhage, status post thrombectomy with revascularization follow-up appointment with neurosurgery on 10/08. Continue work with physical and Occupational Therapy with goal to return home at discharge. reports that referrals have been sent to penitentiary facilities yesterday. Currently has 4 options in [...] CATHERINE DUEÑAS on 09/05/2024 04:55 PM Tyler [id number] Physical medicine and rehab Progress note Subjective [...] area Neuro: Left upper extremity hemiparesis VITALS JhjidcQvjkKXEsgvgGAZeG6ULB7PpfkCs(kg) 09/04 23:3236.6--031181EH 09/04 21:2436.5--160570EL 09/04 16:01----72----RA 09/04 12:10--------97RA 09/04 10:5435.9--198975MX 24 Hr Tmax: 36.6 at 09/04 23:32 [...] tab(s), PEG, Daily, 08/15/24 17:09:00 EDT balsam Prescott-castor oil topical (Venelex 788 mg-87 mg/g topical [...] SBP (mmHg) < 110, 1st dose location: [facility], , 08/15/24 17:09:00 EDT Active [...] minutes, REPEAT x1., 1st dose location: [facility], 0, 08/15/24 1... glucose (Dextrose 50% [...] None Problems (6) CVA (cerebral vascular accident) (791864062) Diabetes mellitus (980023857) Dysphagia (24994496) Hyperlipidemia (83780556) Hypertension (4929938833) Osteoarthritis (0301489699) ASSESSMENT/PLAN: Acute right basal ganglia hemorrhage with [...] HUTTON DO on 09/05/2024 10:12 AM Tyler Whswjtvc54-91-7672 Physical medicine and rehab Progress note Rehab [...] candidate. She was then transferred to a [facility] for further management. CT of [...] Rate64(SEP 03 15:52)64(SEP 03 15:52)90(SEP 03 08:28) GUU147(SEP 04 05:38)112(SEP 04 05:38)127(SEP 03 08:00) DBP70(SEP [...] PEARL DO on 09/04/2024 11:55 AM Tyler GarciaVvuzezyz37-99-0354 Note Subjective Patient states she is doing [...] area Neuro: Left upper extremity hemiparesis VITALS BhgpddIhsfTGOnsgaTFQmN1MJJ6UfgxSr(kg) 09/03 21:4136.4--933579XI 09/03 15:52----64---- 09/03 08:46 09/03 08:28----90---- 09/03 08:0036.4--452272CU 24 Hr Tmax: 36.4 at 09/03 21:41 [...] tab(s), PEG, Daily, 08/15/24 17:09:00 EDT balsam Prescott-castor oil topical (Venelex 788 mg-87 mg/g topical [...] SBP (mmHg) < 110, 1st dose location: [facility], 1, 08/15/24 17:09:00 EDT oxybutynin [...] 2 minutes, REPEAT x1., 1st dose location: [facility], 0, 08/15/24 1... glucose (Dextrose [...] None Problems (6) CVA (cerebral vascular accident) (460251427) Diabetes mellitus (817782554) Dysphagia (38491725) Hyperlipidemia (45150918) Hypertension (9713550147) Osteoarthritis (7926931214) ASSESSMENT/PLAN: Acute right basal ganglia hemorrhage with [...] HUTTON DO on 09/05/2024 08:57 AM Tyler GarciaYeqfqyxq45-37-2444 Note Subjective Patient states that she is [...] area Neuro: Left upper extremity hemiparesis VITALS CxigurRlseKECfkglZURuO0SXW4OevxYr(kg) 09/03 00:2636.3--992887ST 09/02 21:5136.2--848809XB 09/02 16:56----88--98RA 09/02 10:40 RA 09/02 09:0936.0--919910NP 24 Hr Tmax: 37.0 at 09/02 05:55 [...] (mmHg) < 110, 1st dose location: [facility], 1, 08/15/24 17:09:00 EDT oxybutynin (oxybutynin [...] None Problems (6) CVA (cerebral vascular accident) (667264240) Diabetes mellitus (680041054) Dysphagia (65273689) Hyperlipidemia (74666633) Hypertension (4981164824) Osteoarthritis (4709491339) ASSESSMENT/PLAN: Acute right basal ganglia hemorrhage with [...] 08:57 AM [facility]* Exam Date Time Procedure Performing Provider Status 09/02/24 2:[address] Head or Brain w/o Contrast Brenda MCCLELLAN MD; Auth (Verified) [id number] ORIGINAL HISTORY: Lethargy COMPARISON: No TECHNIQUE: Routine [...] 09/02/2024 3:10:44 PM Ordering Provider: SILVINO Scott [id number] Telephone encounter Note* Telephone Encounter - Fouzia Miller LPN - 08/30/2024 10:09 AM EDT Marya Scott [facility] notified. [facility]04-18-2025 Miscellaneous Notes* Telephone Encounter - Fouzia Miller LPN - 08/30/2024 10:09 AM EDT Marya Scott [facility] notified. * Telephone Encounter - Mj Glover APRN.CNP - 08/30/2024 9:19 AM EDT Please let know that Dr. Caruso's team will follow orders. Okay to proceed. Mj Glover APRN.CNP * Telephone Encounter - Jaiden Paulino RN - 08/30/2024 9:07 AM EDT [facility] reports patient was in [facility] with dx: stroke, and transferred to [facility]. Pt will be discharged from [facility] on 09/07/24 to home with [facility] SN PT OT [facility] & [facility]. Asking if pcp agreeable to follow for HHC. Please phone Marya with verbal: [phone] documented in [facility] Telephone encounter Note * Telephone Encounter - Mj Glover APRN.CNP - 08/30/2024 9:19 AM EDT Please let know that Dr. Caruso's team will follow HH orders. Okay to proceed. Mj Glover APRN.CNP [facility]04-18-2025 Telephone encounter Note* Telephone Encounter - Jaiden Paulino RN - 08/30/2024 9:07 AM EDT [facility] reports patient was in [facility] with dx: stroke, and transferred to [facility]. [facility] home with [facility] SN PT OT [facility] & [facility]. Asking if pcp agreeable to follow for HHC. Please phone Marya with verbal: [phone] [facility]04-14-2025 Note REFERRING PHYSICIAN: Silvino Pearl DO. CONSULTING PSYCHOLOGIST: Matthew Gibson, PhD. REASON FOR REFERRAL: Neuropsychological exam. HISTORY OF PRESENT ILLNESS: Ms. Acuna is a 78-year-old right-handed white female admitted to [facility] from [facility] on 08/15/2024 after developing left-sided [...] mild concussions suffered after a career in [employer]. No residual deficits reported. No other RN X RAY injuries or illnesses. MENTAL HEALTH HISTORY: No [...] of NPO. and Mrs. Acuna live in [place]. 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 She has a high school diploma from her hometown in [place], [place]. TEST RESULTS: I used the Cognistat, [...] be determined. MATTHEW GIBSON, PhD LESLIE/SHANNON JOB#: [id number] DICTATION ID#: [id number] Digitally Signed by MATTHEW GIBSON PhD on 08/27/2024 08:21 AM [facility]-84-7478 Note* Exam Date Time Procedure Performing Provider Status 08/25/24 1:46 PM XR Hand and Wrist 6 Views Left Buck LAY DO; Auth (Verified) [id number] ORIGINAL EXAMINATION: 3 XRAY VIEWS OF THE [...] 08/25/2024 2:27:26 PM Ordering Provider: JACKLYN Scott [id number] Note* Exam Date Time Procedure Performing Provider Status 08/25/24 1:45 PM XR Shoulder Minimum 2 Views Left JAMAR LAY DO; Auth (Verified) [id number] ORIGINAL EXAMINATION: TWO XRAY VIEWS OF THE [...] 08/25/2024 2:26:45 PM Ordering Provider: JACKLYN Scott [id number] Note* Exam Date Time Procedure Performing Provider Status 08/25/24 1:43 PM XR Humerus Minimum 2 Views Left ROSANNEJAMAR ; Auth (Verified) [id number] ORIGINAL EXAMINATION: TWO XRAY VIEWS OF THE [...] 08/25/2024 2:26:11 PM Ordering Provider: JACKLYN Scott [id number] Note* Exam Date Time Procedure Performing Provider Status 08/18/24 3:08 PM XR Chest 1 View Contributor_system, FUJ I; Auth (Verified) [id number] ORIGINAL EXAMINATION: ONE XRAY VIEW OF THE [...] Plan noteExtracted from: Title:Clinical Document Author:EZEQUIEL TURCIOS RN-ORDER CONTROL CLERK BLOOD BANK Date:08/16/24 Acute Inpatient Rehab Histor y and Physical Date of Service: 08/16/2024 Date of Admission: 08/15/2024 Attending Physician: Dr. [facility] [employer] 1.1 left body involvement, right brain stroke Etiologic Diagnosis Hemorrhagic infarct involving right basal ganglia, mass effect with effacement of right lateral ventricle, tiny infarct in right cerebellum History of Present Illness 78-year-old female noted to home in inpatient rehab from [facility] stay 08/02 - 08/15 who [...] candidate. She was then transferred to a [facility] for further management. CT of [...] feedings. Patient deemed medically stable transferred to [facility] inpatient rehab unit for physical and occupational [...] with spouse, first- floor set up. Primary Student Nurse: Self. Safe place to go: Yes. Lives [...] Rate80(AUG 15 20:06)80(AUG 15 20:06)80(AUG 15 20:06) YLC645(AUG 16 00:03)128(AUG 16 00:03)140(AUG 15 17:47) DBP76(AUG 16 00:03)76(AUG 16 00:03)80(AUG 15 17:47) 36hr Labs 08/15 1805 Blood Glucose, [id number] Blood Glucose, Autclimsg580Q Blood Glucose TSee Flowsheet Assessment/Plan Debility and [...] This is a 78-year-old female admitted to [facility] inpatient rehab unit from [facility] stay 08/02 [...] was deemed medically stable and transferred to [facility] inpatient rehab unit for physical and occasional [...] Rate80(AUG 15 20:06)80(AUG 15 20:06)80(AUG 15 20:06) JGK524(AUG 16 00:03)128(AUG 16 00:03)140(AUG 15 17:47) DBP76(AUG [...] reviewed. 36hr Labs / 1805 Blood Glucose, Zgxihlhyk301B Blood Glucose, Omkvspbhg104E Blood Glucose TSee Flowsheet ASSESSMENT AND PLAN: [...] CATHERINE DUEÑAS on 08/17/2024 04:53 PM Tyler [id number] Physical medicine and rehab History and physical [...] noted to home in inpatient rehab from [facility] stay 08/02 -08/15 who is [...] candidate. [facility] [...] feedings. Patient deemed medically stable transferred to [facility] inpatient rehab unit for physical and occupational [...] with spouse, first- floor set up. Primary Student Nurse: Self. Safe place to go: Yes. Lives [...] Rate80(AUG 15 20:06)80(AUG 15 20:06)80(AUG 15 20:06) GXJ209(AUG 16 00:03)128(AUG 16 00:03)140(AUG 15 17:47) DBP76(AUG 16 00:03)76(AUG 16 00:03)80(AUG 15 17:47) 36hr Labs 08/15 1805 Blood Glucose, Pbehsdoqf023Z Blood Glucose, Dlceuthzz118H Blood Glucose TSee Flowsheet Assessment/Plan Debility and [...] EZEQUIEL TURCIOS on 08/22/2024 05:17 AM Tyler [id number] Miscellaneous Notes* Nursing Notes - Robson Steel [...] pacing over x3-5 sessions Outcome: Ongoing Problem: ASSISTANT STORE MANAGER OPERATIONS - Cognition Goal: Orientation Log - Patient [...] pacing over x3-5 sessions Outcome: Ongoing Problem: ASSISTANT STORE MANAGER OPERATIONS - Cognition Goal: Orientation Log - 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 - If used occupational therapist assistants, initial PEG should be changed in 6-12 months depending on tube condition. - No plans for repeat outpatient EGD at this time based on clinical status Jonnie Mccabe MD Division of Gastroenterology, Hepatology, and Nutrition Clinical Fellow PGY-4 Pager: [phone] * Plan of Care - Manisha Cheema [...] what the specific medication was. Daughter, Keagan [phone] would be able to answer questions. Catherine [...] oropharyngeal swallow function to most appropriately guide ASSISTANT STORE MANAGER OPERATIONS plan of care Outcome: Met Goal: Bolus [...] readiness for diet advancement Outcome: Met Problem: ASSISTANT STORE MANAGER OPERATIONS - Cognition Goal: Orientation Log - Patient [...] better assess deficits and most appropriately guide ASSISTANT STORE MANAGER OPERATIONS plan of care Outcome: Met Goal: Attention: [...] of Care: 1. Diet: NPO. Advancement per team/ASSISTANT STORE MANAGER OPERATIONS recommendation 2. Ordered TF: Glucerna 1.5 @ [...] readiness for diet advancement Outcome: Ongoing Problem: ASSISTANT STORE MANAGER OPERATIONS - Cognition Goal: Orientation Log - Patient [...] better assess deficits and most appropriately guide ASSISTANT STORE MANAGER OPERATIONS plan of care Outcome: Ongoing * Nursing Notes - Aniyah Torre RN - 08/02/2024 6:13 PM EDT On admission to [facility], from [place] a dual RN initial assessment [...] change from previous assessment. Pt transferred to [facility] via cart accompanied by Denae [...] under emergency consent. SURGEON(S): Prema Ramos MD CAD TECHNICIAN(S): None ANESTHESIA: Monitored anesthesia care DESCRIPTION OF [...] Freeclimb 70/Serjio 7 was advanced over a Signaturitman microcatheter which was advanced over a synchro [...] - 08/02/2024 3:26 PM EDT Lindsay Acuna ([id number]) PRE OPERATIVE DIAGNOSIS Cerebral infarction due to [...] Primary ANESTHESIOLOGIST Anesthesiologist: Tameka Ruth MD LIBRARY CIRCULATION TECHNICIAN: Bebo Barboza APRN-LIBRARY CIRCULATION TECHNICIAN SURGICAL STAFF Software Verification Engineer: Rachell Ruffin RN Early Childhood Education Specialist: Paulina Muñiz; Radha Morales COMPLICATIONS None ESTIMATED BLOOD LOSS Minimal SPECIMENS No specimen sent * No specimens in log * Prema Ramos MD August 02, 2024 3:26 PM [facility] History of Present illness Narrative* OWEN Benavides - 08/15/2024 9:01 AM EDT Care Management Discharge Note Selected Continued Care - Admitted Since 08/02/2024 Destination Coordination complete. Service Provider Services Address Phone Fax Patient Preferred [facility] [address] [place] [phone] -- -- Internal Comment last updated by OWEN Benavides 08/15/2024 0901 Report fax: [phone] Transport Request Mode of Transfer: [facility] Name of Discharge Transport Company: [facility] Discharge Transport ETA: 08/15/2024 @ 1030 Patient medically stable for discharge per physician/medical team. Pt has neurology appointment scheduled. Pt/ to schedule appointment with PCP. Patient/Transformer Molder remain in agreement withthe discharge plan. BULMARO Allen [employer] * OWEN Benavides - 08/14/2024 3:17 PM [...] numbersfor RN report tomorrow morning. BULMARO Allen [employer]er * Marybeth Ayoub - 08/14/2024 2:51 PM EDT Care Management Progress Note Transportation for discharge arranged Mode of Transfer: (P) S Name of Discharge Transport Company: (P) [facility]charge [facility] ETA: (P) 08/15/2024 @ 1030 Pick-up from [facility] 1032/A Destination Tyler ALVARADO [address] [facility] [id number] OWEN Morrell [employer] [phone] * Jazzy Aguiar - 08/14/2024 9:47 AM [...] position Mobility Assessment/Intervention: Supine to Sit Mobility Socorro Level: Supine->Sit: moderate assist (50% patient effort) Physical Assist: Supine->Sit: 2 person assist Bed Features/Set-up: Supine->Sit: Head of bed elevated, Use of bed rail Skilled Rationale: Verbal cues, Tactile cues, Hand placement, Positioning, Technique of activity Skilled Intervention/Details: Supine->Sit: Cues for technique of transfer and pt needing increased assistance for managing legs and trunk to EOB positioning Transfer Assessment/Intervention: Sit to Stand Transfer Socorro Level: Sit->Stand: moderate assist (50% patient effort) [...] hand held support Stand to Sit Transfer Socorro Level: Stand->Sit: moderate assist (50% patient effort) Physical Assist: Stand->Sit: 2 person assist Assistive Device: Stand->Sit: gait belt, hand held assist Skilled Rationale: Verbal cues, Tactile cues, Hand placement, Positioning, Controlled descent for sitting Skilled Intervention/Details: Stand->Sit: Cues for positioning with BSC and recliner, pt provided bilat hand held support and needing increased support for managing a controlled descent Bed-Chair Transfer Socorro Level: Bed<->Chair: maximum assist (25% patient effort) [...] managing L side during transfer Toilet Transfer Socorro Level: Toilet: moderate assist (50% patient effort) [...] upright gaze when standing Outcome Score(s): [facility] Daily Activity Inpatient Short Form Putting on/Taking Off Lower Body Clothin - Total Assistance Bathin - A Lot of Assistance Toiletin - Total Assistance Putting on/Taking Off Upper Body Clothin - A Little Assistance Groomin - A Little Assistance Eatin - Total Assistance [facility] Activity Raw Score: 11 [facility]RENT [facility] Activity Functional Limitation/Modifier: 70.42% Currently Impaired [...] to place, Oriented to situation ("[place]" "hospital" "May" "2024" "stroke") Following Commands: Follows [...] blocking Mobility Assessment/Intervention: Supine to Sit Mobility Socorro Level: Supine->Sit: moderate assist (50% patient effort) [...] sitting) Transfer Assessment/Intervention: Sit to Stand Transfer Socorro Level: Sit->Stand: moderate assist (50% patient effort) Physical Assist: Sit->Stand: 2 person assist Assistive Device: Sit->Stand: gait belt Skilled Rationale: Arm in arm, Patellar block, Ischial assist, Facilitate anterior shift, Full extension to upright positioning/posture, Finding/maintaining midline positioning Skilled Intervention/Details: Sit->Stand: repeat cues to avoid significant L lean with improvement last standing. x1 from EOB, x2 from BSC Stand to Sit Transfer Socorro Level: Stand->Sit: moderate assist (50% patient effort) Physical Assist: Stand->Sit: 2 person assist Assistive Device: Stand->Sit: gait belt Skilled Rationale: Arm in arm, Controlled descent for sitting Skilled Intervention/Details: Stand->Sit: last trial assisted R hand to recliner arm rest and ongoing cues for wt shift to R Bed-Chair Transfer Socorro Level: Bed<->Chair: maximum assist (25% patient effort) [...] Mobility Assessment/Intervention: Stairs Assessment/Intervention: Outcome Score(s): [facility]RENT [facility] Basic Mobility Inpatient Short Form Turning [...] with a railin - Total Assistance [facility] Mobility Raw Score: 8 [facility] Mobility Functional Limitation: 86.62% Impaired in [...] 10 Treating Therapist: Shaina Rosales PT, DPT [id number] 08/14/2024 Additional Details: PT Co-Eval/Treatment Information Co-evaluation/co-treatment [...] on the below outcome measures/assessment score(s) and ASSISTANT STORE MANAGER OPERATIONS clinicaljudgment, discharge destination recommendation is: IPR Barriers to discharge home: 1:1 assist needed for IADL's including medication management and finances Supporting factors for discharge setting: Impaired swallow function limiting nutritional status andsafety with oral intake, Impaired cognitive skills limiting safety/insight Acute ASSISTANT STORE MANAGER OPERATIONS Outcomes Tracking Communicate basic wants and needs?: [...] independent carry over. Strong family support. Ongoing ASSISTANT STORE MANAGER OPERATIONS s indicated. Subjective information: Alert, present. SO referenced his notes from yesterday and reportedcarry over of exercises yesterday. Patient with zero recall Pain: Nonverbal indicator not present Precautions: Patient Safety Communication Prior to Visit: Nursing Lines/Tubes/Drains (Rehab Status): Telemetry, Tube feed Existing Precautions/Restrictions: fall Respiratory Status: O2 Sat (%): 96 % (08/14 0711) O2 Device: room air (08/14 0947) Acute ASSISTANT STORE MANAGER OPERATIONS Goals Plan of Care by Tanja Cason ASSISTANT STORE MANAGER OPERATIONS at 08/14/2024 2:42 PM Version 1 of [...] RoM to achieve technique. Outcome: Ongoing Problem: ASSISTANT STORE MANAGER OPERATIONS - Cognition Goal: Orientation Log - Patient [...] next session: 08/14 - ongoing exercises, education ASSISTANT STORE MANAGER OPERATIONS Outcomes: FOIS 2 Speech Language Pathologist: Tanja Cason ASSISTANT STORE MANAGER OPERATIONS Time In: 836 Time Out: 904 Total Visit Time: 28 minutes Total Treatment Time (skilled, billable minutes): 28 minutes Non-billable assistance during session: na Assisted by during session: na PPE used during patient interaction: gloves Patient location/status at end of session: bed with head of bed elevated Patient alarms at end of session: none altered Needs in reach. ASSISTANT STORE MANAGER OPERATIONS Evaluation and Treatment Time Speech Therapy - Individual 13103: 14 Swallowing Dysfunction Treatment 49697: 14 Upon discontinuation of Acute Care Speech [...] on the below outcome measures/assessment score(s) and ASSISTANT STORE MANAGER OPERATIONS clinicaljudgment, discharge destination recommendation is: Inpatient Rehab Facility Barriers to discharge home: 1:1 assist needed for IADL's including medication management and finances Supporting factors for discharge setting: Impaired swallow function limiting nutritional status andsafety with oral intake, Impaired cognitive skills limiting safety/insight Acute ASSISTANT STORE MANAGER OPERATIONS Outcomes Tracking Communicate basic wants and needs?: [...] O2 Device: room air (08/13 710) Acute ASSISTANT STORE MANAGER OPERATIONS Goals Plan of Care by Tanja Cason ASSISTANT STORE MANAGER OPERATIONS at 08/13/2024 11:10 AM Version 1 of [...] 10 reps this session. Outcome: Ongoing Problem: ASSISTANT STORE MANAGER OPERATIONS - Cognition Goal: Orientation Log - Patient [...] considerations: Cognition Patient Instruction/Education comments: Role of ASSISTANT STORE MANAGER OPERATIONS, presence and normalized frustration with cognitive-communicative impairments. Focused on memory this date and that patient does not recall education so perseverative questions are normal. Reviewed intermittent silent aspiration from MBS last weekand ongoing signs of dysphagia this session, will plan to coordinate timing for repeat instrumentalwith care team Plan for next session: 08/13 -fair ASSISTANT STORE MANAGER OPERATIONS Outcomes: FOIS 2 Speech Language Pathologist: RIKI [...] of session: none altered Needs in reach. ASSISTANT STORE MANAGER OPERATIONS Evaluation and Treatment Time Speech Therapy - Individual 40428: 12 Swallowing Dysfunction Treatment 24913: 13 Upon discontinuation of Acute Care Speech Therapy Services or patient discharge from the hospital this note represents the current Speech Therapy Discharge Summary * OWEN Benavides - 08/12/2024 3:21 PM EDT Placement Plan Expected Discharge Date: 08/14/2024 Referred Level of Care: IPR Barriers: Medical Readiness & Precertification Current Referrals and Status 1. Tyler Garcia-accepted IPR started precertification today. BULMARO Allen [employer] * Jazzy Aguiar - 08/12/2024 10:46 AM [...] sinkside Mobility Assessment/Intervention: Supine to Sit Mobility Socorro Level: Supine->Sit: moderate assist (50% patient effort) [...] positioning Transfer Assessment/Intervention: Sit to Stand Transfer [place] Level: Sit->Stand: maximum assist (25% patient effort) [...] maintaining upright posture Stand to Sit Transfer Socorro Level: Stand->Sit: maximum assist (25% patient effort) Physical Assist: Stand->Sit: 2 person assist Assistive Device: Stand->Sit: gait belt, hand held assist Skilled Rationale: Verbal cues, Tactile cues, Hand placement, Positioning, Controlled descent for sitting Skilled Intervention/Details: Stand->Sit: Cues for positioning with recliner and using BUEs to help with appropriate positoining of hips in chair Bed-Chair Transfer Socorro Level: Bed<->Chair: maximum assist (25% patient effort) Physical Assist: Bed<->Chair: 2 person assist Assistive Device: Bed<->Chair: gait belt Skilled Rationale: Verbal cues, Tactile cues, Hand placement, Positioning, Technique of activity Skilled Intervention/Details: Bed<->Chair: x1 from EOB to recliner on R. Pt needing increasedsupport for managing L side and sequencing steps for appropriate positioning with recliner Outcome Score(s): CURRENT -[facility] Daily Activity Inpatient Short Form Putting on/Taking Off Lower Body Clothin - Total Assistance Bathin - A Lot of Assistance Toiletin - Total Assistance Putting on/Taking Off Upper Body Clothin - A Lot of Assistance Groomin - A Lot of Assistance Eatin - Total Assistance [facility] Activity Raw Score: 9 CURRENT -[facility] Activity Functional Limitation/Modifier: 79.59% Currently Impaired [...] speech and L hemiplegia. She presented to [facility] and was seen on Telestroke, NIHSS [...] goal TF volume. Pt last assessed by ASSISTANT STORE MANAGER OPERATIONS 08/08 with recommendations for NPO. S/p PEG [...] chips. Will also increase free water flushes. ASSISTANT STORE MANAGER OPERATIONS to see pt tomorrow. Nutrition Focused Physical Exam: Nutrition Focused Physical Exam Completed?: completed Subcutaneous Fat Loss: Orbital Region (Orbital Fat Pads): WDL Cheek Region (Buccal Fat Pads): WDL Upper Arm Region (Triceps): WDL Thoracic and Lumbar Region (Ribs, Lower Back, Midaxillary Line): WDL Muscle Wasting: Funk Region (Temporalis Muscle): deferred (lac over eyebrow) [...] kg (172 lb) 06/26/24 78.9 kg (174 lb)-[facility] 05/31/24 79 kg (174 lb 2.6 oz)-[facility] 11/28/23 80.6 kg (177 lb 9.6 oz)-[facility] 09/29/23 84 kg (185 lb)-[facility] meds reviewed: Scheduled: Reviewed, includes [...] Needs: Weight Used: 61 kg (IBW) EEN: 8504-1661 kcal/day (25-30 kcal/kg) EPN: 73-92 g/day (1.2-1.5 g/kg) EFN: 1830 mL/day (30 mL/kg) or per primary team Malnutrition Statement: Does the patient meet criteria for malnutrition: No *Based on The Academy and ASPEN Indicators to Diagnose Malnutrition (AAIM) criteria (2012) Tianna Murray RD, LD, [facility] Pager #[phone] * Katie Ramos, PT - 08/12/2024 10:22 [...] standing. Mobility Assessment/Intervention: Supine to Sit Mobility Socorro Level: Supine->Sit: moderate assist (50% patient effort) Physical Assist: Supine->Sit: 2 person assist Bed Features/Set-up: Supine->Sit: Head of bed elevated Skilled Rationale: Verbal cues, Tactile cues, Hand placement, Technique of activity Skilled Intervention/Details: Supine->Sit: verbal/tactile cues for instruction on transfer technique and mod A x 2 for LE and trunk management. Transfer Assessment/Intervention: Sit to Stand Transfer [place] Level: Sit->Stand: maximum assist (25% patient effort) Physical Assist: Sit->Stand: 2 person assist Assistive Device: Sit->Stand: gait belt Skilled Rationale: Verbal cues, Tactile cues, Hand placement, Technique of activity Skilled Intervention/Details: Sit->Stand: x2 trials with verbal/tactile cues for instruction on transfer technique, hand placement, and blocking left knee. Bed-Chair Transfer Socorro Level: Bed<->Chair: maximum assist (25% patient effort) Physical Assist: Bed<->Chair: 2 person assist Assistive Device: Bed<->Chair: gait belt Skilled Rationale: Verbal cues, Tactile cues, Hand placement, Technique of activity Skilled Intervention/Details: Bed<->Chair: x1 trial from EOB to chair to the right. Verbal/tactile cues for instruction on transfer technqiue, blocking left knee. Outcome Score(s): [facility] Basic Mobility Inpatient Short Form Turning over in bed: 2 - A Lot of Assistance Moving from lying on back to sittin - Total Assistance Moving to and from bed to chair: 1 - Total Assistance Sitting/standing from chair: 1 - Total Assistance Walk in hospital room: 1 - Total Assistance Climbing 3-5 steps with a railin - Total Assistance [facility] Mobility Raw Score: 7 CURRENT [facility] Mobility Functional Limitation: 92.36% Impaired in [...] Physical Therapy Discharge Summary. * Radha Gr, MATTRESS AND FOUNDATION SEWER-ORDER CONTROL CLERK BLOOD BANK - 08/11/2024 7:15 AM EDT NEUROVASCULAR STROKE SERVICE Daily Progress Note IDENTIFYING INFORMATION Lindsay Acuna MR# [id number] 08/11/2024 HISTORY OF PRESENT ILLNESS Lindsay Acuna is a 78 y.o. female with PMH significant for CAD, HTN, HLD, T2DM, Afib (on Eliquis, although patient reports she has not been taking it) who presents with L hemiplegia, slurred speech. LKW 0915 on 08/02, later found down with slurred speech and L hemiplegia. She presented to [facility] and was seen on Telestroke, NIHSS [...] 2b revascularization. INTERVAL HISTORY 08/05: Transfer to [place]. MBS tomorrow 08/06: Failed MBS. Increased lopressor. [...] today 08/11 -Rate controlled on metoprolol Dysphagia: -ASSISTANT STORE MANAGER OPERATIONS following -NPO, DHT + TF -Failed MBS [...] Lindsay Acuna will likely be discharged to [facility] when medically ready Radha rG, MATTRESS AND FOUNDATION SEWER-ORDER CONTROL CLERK BLOOD BANK 08/11/2024 10:17 AM VITAL SIGNS Temp: [97.2 [...] for specific therapeutic recommendations, please see the clinical research assistant report of the speech pathologist. Examination performed [...] and neurological examinations as recorded by the DIE STAMPER repeated and confirmed. I have personally reviewed [...] tooth. Blood cx unremarkable. * Radha Gr, JASIEL-ORDER CONTROL CLERK BLOOD BANK - 08/10/2024 7:14 AM EDT NEUROVASCULAR STROKE SERVICE Daily Progress Note IDENTIFYING INFORMATION Lindsay Acuna MR# [id number] 08/10/2024 HISTORY OF PRESENT ILLNESS Lindsay Acuna is a 78 y.o. female with PMH significant for CAD, HTN, HLD, T2DM, Afib (on Eliquis, although patient reports she has not been taking it) who presents with L hemiplegia, slurred speech. LKW 0915 on 08/02, later found down with slurred speech and L hemiplegia. She presented to [facility] and was seen on Telestroke, NIHSS [...] 2b revascularization. INTERVAL HISTORY 08/05: Transfer to [place]. MBS tomorrow 08/06: Failed MBS. Increased lopressor. [...] as above -Rate controlled on metoprolol Dysphagia: -ASSISTANT STORE MANAGER OPERATIONS following -NPO, DHT + TF -Failed MBS [...] Lindsay Acuna will likely be discharged to [facility] when medically ready Radha Gr, JASIEL-ORDER CONTROL CLERK BLOOD BANK 08/10/2024 7:14 AM VITAL SIGNS Temp: [97.4 [...] for specific therapeutic recommendations, please see the clinical research assistant report of the speech pathologist. Examination performed [...] skin and external bumper. - If used care home, PEG should be changed every 3-6 [...] Hepatology, and Nutrition Clinical Fellow PGY-4 Pager: [phone] For follow up questions regarding this patient 7am to 5pm, contact the IBD consults fellow or DAHLIA on Swopboard. [facility]--> Internal Medicine--> Gastroenterology, Hepatology, & Nutrition--> IBD Consult Service Fel Day OR IBD Consult Service DAHLIA Day For urgent/stat calls or new consults 5pm to 7am or all day on the weekend, please page the on-callGI fellow on Sprya. [facility]--> Internal Medicine--> Gastroenterology, Hepatology, & Nutrition--> 1st Call Fel Miriam OR STAT/NEW GI Cons Wknd Day Cosigned by Niru Koch MD at 08/10/2024 2:11 PM EDT * OWEN Benavides - 08/09/2024 3:34 PM EDT Placement Plan Expected Discharge Date: Referred Level of Care: IPR Barriers: Medical Readiness and Precertification Current Referrals and Status 1. [facility] [place] I[facility]-accepted IPR will start precertification on Monday after updated therapy notes are in. For Case Management assistance for the weekend, please contact CM for assistance as needed (8:00am-4:30pm) BASH: [phone] Maria: [phone] Johan: [phone] Ross: [phone] For Social Work assistance for the weekend, please contact for assistance as needed (8:00am - 4:30pm): BASH: [phone] Maria: [phone] Johan: [phone] Ross: [phone] * Radha Gr APRN-ORDER CONTROL CLERK BLOOD BANK - 08/09/2024 8:07 AM EDT NEUROVASCULAR STROKE SERVICE Daily Progress Note IDENTIFYING INFORMATION Lindsay Acuna MR# [id number] 08/09/2024 HISTORY OF PRESENT ILLNESS Lindsay Acuna is a 78 y.o. female with PMH significant for CAD, HTN, HLD, T2DM, Afib (on Eliquis, although patient reports she has not been taking it) who presents with L hemiplegia, slurred speech. LKW 0915 on 08/02, later found down with slurred speech and L hemiplegia. She presented to [facility] and was seen on Telestroke, NIHSS [...] 2b revascularization. INTERVAL HISTORY 08/05: Transfer to [place]. MBS tomorrow 08/06: Failed MBS. Increased lopressor. [...] as above -Rate controlled on metoprolol Dysphagia: -ASSISTANT STORE MANAGER OPERATIONS following -NPO, DHT + TF -Failed MBS [...] Lindsay Acuna will likely be discharged to [facility] when medically ready Radha Gr, JASIEL-ORDER CONTROL CLERK BLOOD BANK 08/09/2024 8:07 AM VITAL SIGNS Temp: [97.3 [...] I have reviewed and approved this report. Electronically Signed By: Alissa Chun M.D., [place] [facility] [place] on 08/08/2024 4:14 PM XR FLUORO MODIFIED BARIUM SWALLOW WITH SPEECH Final Result IMPRESSION: 1. Inconsistent silent and sensate aspiration of thin, mildly thick/nectar, and moderately thick/honey consistencies. 2. No penetration or aspiration with pudding consistency. For additional analysis of the fluoroscopic examination for specific therapeutic recommendations, please see the clinical research assistant report of the speech pathologist. Examination performed [...] on the below outcome measures/assessment score(s) and ASSISTANT STORE MANAGER OPERATIONS clinicaljudgment, discharge destination recommendation is: Inpatient Rehab Facility Acute ASSISTANT STORE MANAGER OPERATIONS Outcomes Tracking Communicate basic wants and needs?: [...] pressions and introduction to effortful swallow exercise. ASSISTANT STORE MANAGER OPERATIONS provided education regarding recommendation of NPO given [...] constraints (transport arrived for pt's CT scan). ASSISTANT STORE MANAGER OPERATIONS will follow as able. Subjective information: Patient upright in chair, at bedside. Agreeable to ASSISTANT STORE MANAGER OPERATIONS session. Pain: General Pain Documentation (Adult, OB, [...] room air Flow (L/min): [3] 3 Acute ASSISTANT STORE MANAGER OPERATIONS Goals Plan of Care by RIKI Penaloza [...] phsyiology, risks of aspiration pneumonia). Educated regarding ASSISTANT STORE MANAGER OPERATIONS role in swallow rehab and future POC Plan for next session: 08/06: cog tx and dysphagia exercises ASSISTANT STORE MANAGER OPERATIONS Outcomes: FOIS: 1 Speech Language Pathologist: RIKI Penaloza Time In: 1310 Time Out: 1330 Total Visit Time: 20 minutes Total Treatment Time (skilled, billable minutes): 20 minutes Non-billable assistance during session: NA Assisted by during session: NA PPE used during patient interaction: gloves Patient location/status at end of session: chair Patient alarms at end of session: none altered Needs in reach. ASSISTANT STORE MANAGER OPERATIONS Evaluation and Treatment Time Swallowing Dysfunction Treatment 47980: 20 Upon discontinuation of Acute Care Speech [...] feedback Mobility Assessment/Intervention: Supine to Sit Mobility [place] Level: Supine->Sit: moderate assist (50% patient effort) Physical Assist: Supine->Sit: 2 person assist Bed Features/Set-up: Supine->Sit: Use of bed rail, Head of bed elevated Skilled Rationale: Sequencing, Verbal cues, Hand placement, Positioning Skilled Intervention/Details: Supine->Sit: increased time/cues Transfer Assessment/Intervention: Sit to Stand Transfer [place] Level: Sit->Stand: moderate assist (50% patient effort) Physical Assist: Sit->Stand: 2 person assist Assistive Device: Sit->Stand: gait belt, hand held assist Skilled Rationale: Positioning, Sequencing, Hand placement, Verbal cues Skilled Intervention/Details: Sit->Stand: Pt educated in sit to stand transfers x 2 attempts, one from EOB and one from chair Bed-Chair Transfer [place] Level: Bed<->Chair: maximum assist (25% patient effort) [...] Mobility Assessment/Intervention: Stairs Assessment/Intervention: Outcome Score(s): [facility] Basic Mobility Inpatient Short Form Turning [...] with a railin - Total Assistance [facility] Mobility Raw Score: 8 CURRENT [facility] Mobility Functional Limitation: 86.62% Impaired in [...] positioning Mobility Assessment/Intervention: Supine to Sit Mobility [place] Level: Supine->Sit: moderate assist (50% patient effort) [...] positioning Transfer Assessment/Intervention: Sit to Stand Transfer [place] Level: Sit->Stand: moderate assist (50% patient effort) Physical Assist: Sit->Stand: 2 person assist Assistive Device: Sit->Stand: gait belt, hand held assist Skilled Rationale: Verbal cues, Tactile cues, Hand placement, Positioning, Technique of activity Skilled Intervention/Details: Sit->Stand: x1 from EOB, x1 from recliner. Cues for technique and assuming an upright posture once standing Stand to Sit Transfer [place] Level: Stand->Sit: moderate assist (50% patient effort) Physical Assist: Stand->Sit: 2 person assist Assistive Device: Stand->Sit: gait belt, hand held assist Skilled Rationale: Verbal cues, Tactile cues, Hand placement, Positioning, Controlled descent for sitting Skilled Intervention/Details: Stand->Sit: Cues for positioning with recliner and using arms to help with controlled descent into chair Bed-Chair Transfer [place] Level: Bed<->Chair: maximum assist (25% patient effort) [...] appropriately position with chair. Outcome Score(s): [facility] Daily Activity Inpatient Short Form Putting on/Taking Off Lower Body Clothin - Total Assistance Bathin - A Lot of Assistance Toiletin - Total Assistance Putting on/Taking Off Upper Body Clothin - A Lot of Assistance Groomin - A Lot of Assistance Eatin - Total Assistance [facility] Activity Raw Score: 9 CURRENT -[facility] Activity Functional Limitation/Modifier: 79.59% Currently Impaired [...] Progress Note IDENTIFYING INFORMATION Lindsay Acuna MR# [id number] 08/08/2024 HISTORY OF PRESENT ILLNESS Lindsay Acuna is a 78 y.o. female with PMH significant for CAD, HTN, HLD, T2DM, Afib (on Eliquis, although patient reports she has not been taking it) who presents with L hemiplegia, slurred speech. LKW 0915 on 08/02, later found down with slurred speech and L hemiplegia. She presented to [facility] and was seen on Telestroke, NIHSS [...] 2b revascularization. INTERVAL HISTORY 08/05: [place] [facility] [place] 08/06: Failed MBS. Increased lopressor. Spouse [...] as above -Rate controlled on metoprolol Dysphagia: -ASSISTANT STORE MANAGER OPERATIONS following -NPO, DHT + TF -Failed MBS [...] Lindsay Acuna will likely be discharged to [facility] when medically ready Bella Cardenas, JASIEL-ORDER CONTROL CLERK BLOOD BANK 08/08/2024 2:53 PM VITAL SIGNS Temp: [97.4 [...] for specific therapeutic recommendations, please see the clinical research assistant report of the speech pathologist. Examination performed [...] Current Referrals and Status 1. [facility] notified student confirming after call with Patient's daughter that [facility] is facility of choice. Facility reserved. AVS/DAVE [...] and patient's spouse are agreeable to [facility] as facility of choice, and Gisela is agreeable to [facility] as well. Updated SW student. Simin Resendez, RN, BSN Clinical Senior Quality Assurance Analyst [facility] * Chela Hannon - 08/07/2024 2:08 PM EDT Placement Plan RETAIL CENTER RECEPTIONIST met with Patient and spouse at bedside to discuss facility choice. Spouse mentioned that [facility] was first choice, though RETAIL CENTER RECEPTIONIST provided update that [facility] could not accept after reviewing. RETAIL CENTER RECEPTIONIST reviewed other IPR options with Spouse, who reports that [facility] would be facility of choice. Spouse discussed with daughter Gisela via phone, who is in agreement but requestsa return call. RETAIL CENTER RECEPTIONIST notified CCM. Chela Snyder Social Work Student Available by Secure Chat Cosigned by OWEN Keller at 08/07/2024 2:11 PM EDT * Bella Cardenas, JASIEL-ORDER CONTROL CLERK BLOOD BANK - 08/07/2024 6:54 AM EDT NEUROVASCULAR STROKE SERVICE Daily Progress Note IDENTIFYING INFORMATION Lindsay Acuna MR# [id number] 08/07/2024 HISTORY OF PRESENT ILLNESS Lindsay Acuna is a 78 y.o. female with PMH significant for CAD, HTN, HLD, T2DM, Afib (on Eliquis, although patient reports she has not been taking it) who presents with L hemiplegia, slurred speech. LKW 0915 on 08/02, later found down with slurred speech and L hemiplegia. She presented to [facility] and was seen on Telestroke, NIHSS [...] 2b revascularization. INTERVAL HISTORY 08/05: [place] [facility] tomorrow 08/06: Failed MBS. Increased lopressor. Spouse [...] as above -Rate controlled on metoprolol Dysphagia: -ASSISTANT STORE MANAGER OPERATIONS following -NPO, DHT + TF -Failed MBS [...] Lindsay Acuna will likely be discharged to [facility] when medically ready Bella Cardenas APRN-ORDER CONTROL CLERK BLOOD BANK 08/07/2024 3:06 PM VITAL SIGNS Temp: [97.5 [...] for specific therapeutic recommendations, please see the clinical research assistant report of the speech pathologist. Examination performed [...] and Status 1. [facility]: Available 2. [facility]: Available 3. [facility]: Available (pending PEG or diet and their MD requested aspirin started before discharge) 4. [facility]: Available 5. [facility]: Unavailable, out of network 6. [facility] Inpatient Rehab: Unavailable, Incorrect Level of Care 7. [facility] IPR: sent Met with patient and patient's spouse, Ike, at bedside to provide choice list. Ike called patient's daughter, Gisela Acuna, to discuss as well. Gisela requested information on private pay at [facility], messaged [facility] liaison and then provided information to Gisela. Gisela requested CM sendreferral to [facility] IPR. Plan for family to review choice list FREDRICK camargo/SW team will update patient and family regarding [facility] IPR response tomorrow morning. This CM's contact information provided to Ike Acuna and Gisela Acuna for any further questions. Simin Resendez RN, BSN Clinical Senior Quality Assurance Analyst [facility] * Florinda Velasquze, PT - [...] minutes Mobility Assessment/Intervention: Supine to Sit Mobility [place] Level: Supine->Sit: moderate assist (50% patient effort) Bed Features/Set-up: Supine->Sit: Head of bed elevated, Use of bed rail Skilled Rationale: Positioning, Sequencing Skilled Intervention/Details: Supine->Sit: step by step cues for sequencingg Transfer Assessment/Intervention: Sit to Stand Transfer [place] Level: Sit->Stand: moderate assist (50% patient effort) [...] left UE during transitional movements Bed-Chair Transfer [place] Level: Bed<->Chair: moderate assist (50% patient effort) Physical Assist: Bed<->Chair: 2 person assist Assistive Device: Bed<->Chair: gait belt, hand held assist Skilled Rationale: Positioning, Hand placement, Verbal cues, Sequencing Skilled Intervention/Details: Bed<->Chair: Pt educated in bed to BSC commode transfer x 2-3 steps with cues for LE sequencing, left LE weakness requiring intermittent blocking Gait/Functional Mobility Assessment/Intervention: Gait Assessment Socorro Level: Gait: (mod/max) Physical Assist: Gait: 2 [...] prevent buckling. Stairs Assessment/Intervention: Outcome Score(s): [facility] Basic Mobility Inpatient Short Form Turning [...] with a railin - Total Assistance [facility]RENT [facility] Mobility Raw Score: 9 CURRENT [facility] Mobility Functional Limitation: 81.38% Impaired in [...] Therapy Discharge Summary. * Nimesh Balderrama [facility] - 08/06/2024 1:42 PM EDT Department of Pharmacy Admission Medication Reconciliation Note Patient: Lindsay Acuna Room/Bed: 1043/A I have reviewed the patient's home medication list with the following sources Dispense Report. The home medication list status is: complete. All changes to the home medication list have been updated in [facility]. Updated [place] [facility] Med List: Prior to Admission Medications Prescriptions [...] any further questions. Name: Nimesh Balderrama [facility] Phone #: [phone] Date/Time: 08/06/2024 1:42 PM Time Spent: 10 [...] noted Mobility Assessment/Intervention: Supine to Sit Mobility [place] Level: Supine->Sit: moderate assist (50% patient effort) [...] completion. Transfer Assessment/Intervention: Sit to Stand Transfer [place] Level: Sit->Stand: (x 1 trial from EOB [...] and kyphotic posture. Stand to Sit Transfer [place] Level: Stand->Sit: moderate assist (50% patient effort) Assistive Device: Stand->Sit: gait belt (Arm and arm assist.) Skilled Rationale: Cues for increased safety, Initiation and execution of task, Technique of activity, Controlled descent for sitting, Ischial assist, Arm in arm, Tactile cues, Verbal cues, Hand placement, Sequencing, Positioning Bed-Chair Transfer [place] Level: Bed<->Chair: moderate assist (50% patient effort) [...] with left LE). Functional Mobility: Functional Mobility [place] Level: Functional Mobility/Gait: (Moderate-max assistance) Physical Assist: [...] overall decreased insight/awareness intodeficits. Outcome Score(s): [facility]RENT [facility] Daily Activity Inpatient Short Form Putting on/Taking Off Lower Body Clothin - Total Assistance Bathin - A Lot of Assistance Toiletin - Total Assistance Putting on/Taking Off Upper Body Clothin - A Lot of Assistance Groomin - A Lot of Assistance Eatin - Total Assistance ([place].) CURRENT [facility] Activity Raw Score: 9 CURRENT [facility] Activity Functional Limitation/Modifier: 79.59% Currently Impaired [...] Occupational Therapy Discharge Summary. * Taran Traore, JASIEL-ORDER CONTROL CLERK BLOOD BANK - 08/06/2024 7:49 AM EDT NEUROVASCULAR STROKE SERVICE Daily Progress Note IDENTIFYING INFORMATION Lindsay Acuna MR# [id number] 08/06/2024 HISTORY OF PRESENT ILLNESS Lindsay Acuna is a 78 y.o. female with PMH significant for CAD, HTN, HLD, T2DM, Afib (on Eliquis, although patient reports she has not been taking it) who presents with L hemiplegia, slurred speech. LKW 0915 on 08/02, later found down with slurred speech and L hemiplegia. She presented to [facility] and was seen on Telestroke, NIHSS [...] 2b revascularization. INTERVAL HISTORY 08/05: Transfer to [place]. MBS tomorrow 08/06: Failed MBS. Increased lopressor. [...] as above -Rate controlled on metoprolol Dysphagia: -ASSISTANT STORE MANAGER OPERATIONS following -NPO, DHT + TF -Failed MBS [...] Lindsay Acuna will likely be discharged to [facility] when medically ready Taran Traore APRN-ORDER CONTROL CLERK BLOOD BANK 08/06/2024 1:43 PM VITAL SIGNS Temp: [96.5 [...] for specific therapeutic recommendations, please see the clinical research assistant report of the speech pathologist. Examination performed [...] Progress Note IDENTIFYING INFORMATION Lindsay Acuna MR# [id number] 08/05/2024 HISTORY OF PRESENT ILLNESS Lindsay Acuna is a 78 y.o. female with PMH significant for CAD, HTN, HLD, T2DM, Afib (on Eliquis, although patient reports she has not been taking it) who presents with L hemiplegia, slurred speech. LKW 0915 on 08/02, later found down with slurred speech and L hemiplegia. She presented to [facility] and was seen on Telestroke, NIHSS [...] 2b revascularization. INTERVAL HISTORY 08/05: Transfer to [facility] tomorrow PHYSICAL EXAM Gen: awake, alert, [...] as above -Rate controlled on metoprolol Dysphagia: -ASSISTANT STORE MANAGER OPERATIONS following -NPO, DHT + TF -MBS tomorrow HLD, POA: -Atorvastatin 40 mg daily CAD, POA: -Hold ASA for 7 days due to ICH T2DM, POA: -SSI regular + accuchecks CKD Stage 3A, POA: Baseline Cr 1.3 -Avoid nephrotoxins, monitor Hypothyroidism, POA: -Continue home levothyroxine 75 mcg daily Disposition: Lindsay Acuna will likely be discharged to [facility] when medically ready Taran Traore APRN-ORDER CONTROL CLERK BLOOD BANK 08/05/2024 2:19 PM VITAL SIGNS Temp: [97.8 [...] on the below outcome measures/assessment score(s), and ASSISTANT STORE MANAGER OPERATIONS clinical judgment, discharge destination recommendation is: Pending [...] Impaired cognitive skills limiting saf ety/insight Acute ASSISTANT STORE MANAGER OPERATIONS Outcomes Tracking Communicate basic wants and needs?: [...] oropharyngeal swallow function to most appropriately guide ASSISTANT STORE MANAGER OPERATIONS plan of care. Of note, patient is [...] Currentdeficits impact her safety and independence. Ongoing ASSISTANT STORE MANAGER OPERATIONS services are warranted. Subjective information: Awake, alert, [...] O2 Device: room air (08/05 0830) Acute ASSISTANT STORE MANAGER OPERATIONS Goals Plan of Care by Queta Gardner, ASSISTANT STORE MANAGER OPERATIONS at 08/05/2024 11:49 AM Version 1 of [...] oropharyngeal swallow function to most appropriately guide ASSISTANT STORE MANAGER OPERATIONS plan of care Outcome: Ongoing Problem: ASSISTANT STORE MANAGER OPERATIONS - Cognition Goal: Orientation Log - Patient [...] better assess deficits and most appropriately guide ASSISTANT STORE MANAGER OPERATIONS plan of care Outcome: Met Tx: Noted [...] for next session: 08/05: Good candidate; FERNANDO ASSISTANT STORE MANAGER OPERATIONS Outcomes: ASSISTANT STORE MANAGER OPERATIONS Outcomes / Standardized Measures Score The Orientation [...] wrist restraints, RN aware Needs in reach. ASSISTANT STORE MANAGER OPERATIONS Evaluation and Treatment Time Speech Therapy - Individual 29383: 8 Swallowing Dysfunction Treatment 07258: 9 Upon discontinuation of Acute Care Speech Therapy Services or patient discharge from the hospital this note represents the current Speech Therapy Discharge Summary * Chela Hannon - 08/05/2024 10:37 AM EDT Placement Plan Expected Discharge Date: TBD Referred Level of Care: IPR Barriers: medical stability, bed availability Current Referrals and Status 1. [facility]- sent; denied (Patient is OON) 2. [facility]- sent 3. [facility]- sent 4. [facility]- sent 5. [facility]- sent 6. [facility] RETAIL CENTER RECEPTIONIST met with Patient and Spouse at bedside to discuss discharge planning. Patient and spouse were agreeable to SW visit. RETAIL CENTER RECEPTIONIST discussed therapy recommendations with Spouse for Patient to go to [facility] at discharge. Spouse is agreeable to a referral being sent to [facility]. Referral sent. Spouse requested to speak to SW about assessing Patient for dementia. RETAIL CENTER RECEPTIONIST and bedside RN encouragedSpouse to discuss with Patient's outpatient provider. Chela Snyder, Social Work Student Available by Secure Chat Cosigned by OWEN Keller at 08/05/2024 11:22 AM EDT * Savana Leung, RD - 08/05/2024 10:10 AM EDT NUTRITION ASSESSMENT Nutrition Recommendations and Plan of Care: 1. Diet: NPO. Advancement per team/ASSISTANT STORE MANAGER OPERATIONS recommendation 2. Ordered TF: Glucerna 1.5 @ [...] time. Per team, pt failed bedside swallow. ASSISTANT STORE MANAGER OPERATIONS consulted for swallow eval. Past History No [...] kg (172 lb) 06/26/24 78.9 kg (174 lb)-[facility] 05/31/24 79 kg (174 lb 2.6 oz)-[facility] 11/28/23 80.6 kg (177 lb 9.6 oz)-[facility] 09/29/23 84 kg (185 lb)-[facility] Pt without significant weight change [place] [facility]. Tmax: 97.8*F BP: (!) 173/94 Pulse (Heart [...] proximal second portion of the duodenum. BM: [place] [facility] Urine: 725mL Skin: Raghu Score: 13 Active Wounds: Wound Sheath Site 08/02/24 1500 Right Radial (3) Wound Abrasion 08/02/24 2109 Left;Upper Face (3) Edema- None Estimated Nutrition Needs: Based on IBW (61.4kg) Estimated Kcals Needs: 7232-8438 kcals (25-30kcals/kg) Estimated Pro Needs: 74-92g Pro (1.2-1.5g/kg) Estimated Fluid Needs: Per MD Nutrition Focused Physical Exam Completed?: completed Subcutaneous Fat Loss: Orbital Region (Orbital Fat Pads): WDL Cheek Region (Buccal Fat Pads): WDL Upper Arm Region (Triceps): WDL Thoracic and Lumbar Region (Ribs, Lower Back, Midaxillary Line): WDL Muscle Wasting: Funk Region (Temporalis Muscle): deferred (lac over eyebrow) [...] (2012) ELVIRA Ho, RD, LD, CNSC Pager: [phone] * Rashad Rg MD - 08/05/2024 9:42 [...] critical care time 31min. * Shanna Russ, JASIEL-ORDER CONTROL CLERK BLOOD BANK - 08/05/2024 7:20 AM EDT NEUROCRITICAL CARE [...] Visual richards intact to confrontation. PERRL. 3mm hypo dipper III, IV and : EOMI. No nystagmus. [...] aggressive pulm edema, OOB as toleratd - [id number], encourage pulmonary toileting Cards: Essential HTN HLD [...] TUBE FEEDING with meds (per DHT) - [place] Swallow Screening Result: failed=NPO Bowel regimen: - Last Bowel Movement: (prior to admission) - Senna 17.2 mg Q12H, miralax BID, suppository PRN Stress ulcer prophylaxis: - none Dysphagia - DHT placed - ASSISTANT STORE MANAGER OPERATIONS following; NPO continue following, on TF - [...] not indicated DVT: subcutaneous heparin [x] Lines [place]: n/a [place]: remove Rectal tube: n/a Enteral [...] the assigned neurocritical care provider (resident, fellow, DIE STAMPER, orPA) or page/call the corresponding number below NCC1 (Beds 7746-0487): [place] # [phone], pager #[phone] NCC2 (Beds 8211-8091, [address], and overflow): [place] #: [phone], pager #[phone] * Florinda Velasquez, PT - 08/04/2024 1:36 [...] noted Mobility Assessment: Supine to Sit Mobility [place] Level: Supine->Sit: moderate assist (50% patient effort) [...] EOB Transfer Assessment: Sit to Stand Transfer [place] Level: Sit->Stand: moderate assist (50% patient effort) Physical Assist: Sit->Stand: 2 person assist Assistive Device: Sit->Stand: gait belt, hand held assist Skilled Rationale: Positioning, Sequencing, Hand placement, Verbal cues Skilled Intervention/Details: Sit->Stand: x 1 from EOB Bed-Chair Transfer [place] Level: Bed<->Chair: moderate assist (50% patient effort) Physical Assist: Bed<->Chair: 2 person assist Assistive Device: Bed<->Chair: gait belt, hand held assist Skilled Rationale: Positioning, Sequencing, Hand placement, Verbal cues Skilled Intervention/Details: Bed<->Chair: x 2-3 steps from bed to chair Gait/Functional Mobility: Stairs: Outcome Score(s): [facility]RENT [facility] Basic Mobility Inpatient Short Form Turning [...] with a railin - Total Assistance [facility] Mobility Raw Score: 10 CURRENT [facility] Mobility Functional Limitation: 76.75% Impaired in [...] Edema: Mobility Assessment: Supine to Sit Mobility [place] Level: Supine->Sit: moderate assist (50% patient effort) Physical Assist: Supine->Sit: 2 person assist Bed Features/Set-up: Supine->Sit: Head of bed elevated Skilled Rationale: Positioning, Hand placement, Verbal cues, Technique of activity Transfer Assessment: Sit to Stand Transfer [place] Level: Sit->Stand: moderate assist (50% patient effort) Physical Assist: Sit->Stand: 2 person assist Assistive Device: Sit->Stand: gait belt, hand held assist Skilled Rationale: Positioning, Hand placement, Verbal cues, Technique of activity Stand to Sit Transfer [place] Level: Stand->Sit: moderate assist (50% patient effort) Physical Assist: Stand->Sit: 2 person assist Assistive Device: Stand->Sit: hand held assist Skilled Rationale: Positioning, Hand placement, Verbal cues, Arm in arm, Controlled descent for sitting Bed-Chair Transfer [place] Level: Bed<->Chair: moderate assist (50% patient effort) [...] assessment and plan as documented by the DIE STAMPER with my changes/additions added. Patient is a [...] ICH x 7 days - Statin - PT/OT/ASSISTANT STORE MANAGER OPERATIONS evaluation Pulmonary: No acute issues, appears to [...] and other supportive care as per the DIE STAMPER note from the same day This patient [...] [facility] the [facility] and other care providers. Management of the above was performed. My time managing this critically ill patient included review of interval history, laboratories, radiology and cons ultation reports; performing a physical examination; discussing the patient with the multi-disciplinary team and managing life sustaining therapies to prevent imminent clinical deterioration. Richard Mejia MD Neurocritical Care Attending * Balbir Mccoy, MATTRESS AND FOUNDATION SEWER-ORDER CONTROL CLERK BLOOD BANK - 08/04/2024 7:44 AM EDT NEUROCRITICAL CARE [...] Visual richards intact to confrontation. PERRL. 3mm hypo dipper III, IV and : EOMI. No nystagmus. [...] SpO2 >92%; wean FiO2 as tolerated - [id number], encourage pulmonary toileting Cards: Essential HTN HLD [...] AND TUBE FEEDING with meds (per [facility]) - [place] Swallow Screening Result: failed=NPO Bowel regimen: - Last Bowel Movement: (prior to admission) - Senna 17.2 mg Q12H, miralax at bedtime Stress ulcer prophylaxis: - none Dysphagia - DHT placed - ASSISTANT STORE MANAGER OPERATIONS following - Tube feed: Vital AF with [...] the assigned neurocritical care provider (resident, fellow, DIE STAMPER, orPA) or page/call the corresponding number below NCC1 (Beds 0217-6759): [place] # [phone], pager #[phone] NCC2 (Beds [phone], 12 Nando, and overflow): [place] #: [phone], pager #[phone] * Rafael Garcia MD - 08/03/2024 2:16 PM EDT NEUROVASCULAR Consult Daily Progress Note IDENTIFYING INFORMATION Lindsay Acuna MR# [id number] 08/03/2024 HISTORY OF PRESENT ILLNESS Lindsay Acuna is a 78 y.o. female with PMH significant for CAD, HTN, HLD, T2DM, Afib (on Eliquis, although patient reports she has not been taking it) who presents with L hemiplegia, slurred speech. She was last seen normal by her at 0915, later found down with slurred speech and L hemiplegia. She presented to [facility] and was seen on Telestroke, NIHSS [...] interviewed and examined patient. I have reviewed Resident/Fellow/DAHILA note and agree with the following highlights, additions, and addendums: Ms. Acuna is a 78F w/ CAD, HTN, HLD, T2DM, Afib (on Eliquis, although patient reports she has notbeen taking it) who presents with L hemiplegia, slurred speech. She was last seen normal by her at 0915, later found down with slurred speech and L hemiplegia. She presented to [facility] and was seen on Telestroke, NIHSS [...] workup. Delbert Kasper MD * Nohelia Oconnell, ASSISTANT STORE MANAGER OPERATIONS - 08/03/2024 12:09 PM EDT Acute Care ASSISTANT STORE MANAGER OPERATIONS Speech/Language/Cognitive Evaluation Best mode of Communication: spoken language (regular speech) Discharge Recommendations: Based on the below outcome measures/assessment score(s) and ASSISTANT STORE MANAGER OPERATIONS clinicaljudgment, discharge destination recommendation is: (Skilled speech therapy services at next level of care) Barriers to discharge home: Cognitive impairments that impact safety and independence Supporting factors for discharge setting: Impaired swallow function limiting nutritional status andsafety with oral intake Acute ASSISTANT STORE MANAGER OPERATIONS Outcomes Tracking Communicate basic wants and needs?: [...] speech and L hemiplegia. She presented to [facility] and was seen on Telestroke,NIHSS 12. [...] 0 Asthenia (A): 0 Strain (S): 0 ASSISTANT STORE MANAGER OPERATIONS Outcomes / Standardized Measures Score The Orientation [...] unable to respond. Total Score: 12 Acute ASSISTANT STORE MANAGER OPERATIONS Goals Plan of Care by Nohelia Oconnell ASSISTANT STORE MANAGER OPERATIONS at 08/03/2024 11:25 AM Version 1 of 1 Problem: Dysphagia Goal: Ongoing Assessment - Patient will participate in ongoing assessment by accepting various PO consistency trials with appropriate participation/oral acceptance and no significant respiratory complications to determine readiness for diet advancement Outcome: Ongoing Problem: ASSISTANT STORE MANAGER OPERATIONS - Cognition Goal: Orientation Log - Patient [...] better assess deficits and most appropriately guide ASSISTANT STORE MANAGER OPERATIONS plan of care Outcome: Ongoing Speech Language [...] of session: bed alarm Needs in reach. ASSISTANT STORE MANAGER OPERATIONS Evaluation and Treatment Time Speech Eval - Sound Production W/Lang Comp and Exp 73634: 11 Swallowing Eval 50520: 10 Upon discontinuation of Acute Care Speech [...] on the below outcome measures/assessment score(s) and ASSISTANT STORE MANAGER OPERATIONS clinicaljudgment, discharge destination recommendation is: Deferred to PT/OT recomendations related to mobility Current therapy frequency recommendation in acute care: Swallow Therapy Frequency: 5 times a week Acute ASSISTANT STORE MANAGER OPERATIONS Outcomes Tracking Communicate basic wants and needs?: [...] speech and L hemiplegia. She presented to [facility] and was seen on Telestroke,NIHSS 12. 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 Prior ASSISTANT STORE MANAGER OPERATIONS history: No prior speech history per chart [...] and Liquids Trialed Modality Amount Ice Teaspoon, ASSISTANT STORE MANAGER OPERATIONS-fed 3x Thin Teaspoon 3x Oral Phase Function [...] Patient presents with presumed pharyngeal phase impairments. [place] Swallow Screen: (administered by: ZOE) [place] Swallow Screening Screening Exclusion Criteria: none, continue with [place] Swallow Screening Cognitive Screen: Orientation: able to [...] Ok for ice chips with RN supervision. ASSISTANT STORE MANAGER OPERATIONS will continue to follow for ongoing dysphagia management. Patient Education/Instruction Learners: Patient Education provided: Dysphagia recommendation risk: benefit analysis, Role of this discipline Teaching method: Verbal Education/Instruction Learner response: Needs review Learning preferences: Auditory Learning considerations: Cognition Plan for next session: 08/03: Good Prognosis, ongoing dysphagia management to determine readiness for diet advancement vs instrumental. Acute ASSISTANT STORE MANAGER OPERATIONS Goals Plan of Care by RIKI Hayes at 08/03/2024 11:25 AM Version 1 of 1 Problem: Dysphagia Goal: Ongoing Assessment - Patient will participate in ongoing assessment by accepting various PO consistency trials with appropriate participation/oral acceptance and no significant respiratory complications to determine readiness for diet advancement Outcome: Ongoing Problem: ASSISTANT STORE MANAGER OPERATIONS - Cognition Goal: Orientation Log - Patient [...] better assess deficits and most appropriately guide ASSISTANT STORE MANAGER OPERATIONS plan of care Outcome: Ongoing Speech Language Pathologist: RIKI Hayes, BCS-S Board Certified Specialist in Swallowing and Swallowing Disorders Available via Korem Chat Time In: 1130 Time Out: 1151 Total Visit Time: 21 minutes Total Treatment Time (skilled, billable minutes): 21 minutes Non-billable assistance during session: none Assisted by during session: Patient's PPE used during patient interaction: gloves Patient location/status at end of session: bed with head of bed elevated Patient alarms at end of session: bed alarm Needs in reach. ASSISTANT STORE MANAGER OPERATIONS Evaluation and Treatment Time Speech Eval - Sound Production W/Lang Comp and Exp 11402: 11 Swallowing Eval 73937: 10 Upon discontinuation of Acute Care Speech Therapy Services or patient discharge from the hospital this note represents the current Speech Therapy Discharge Summary * Richard Mejia MD - 08/03/2024 10:30 AM EDT I have independently seen and examined the patient on 08/03/24. I agree with the history, examination, assessment and plan as documented by the DIE STAMPER with my changes/additions added. Patient is a [...] the setting of ICH - Statin - PT/OT/ASSISTANT STORE MANAGER OPERATIONS evaluation Pulmonary: No acute issues, appears to [...] and other supportive care as per the DIE STAMPER note from the same day This patient [...] care services to the patient today [facility] and other care providers. Management [...] with assistance from spouse Care Management Plan RETAIL CENTER RECEPTIONIST met with Patient and Spouse at bedside to complete Initial Assessment. They were agreeable to SW visit. Patient was lethargic though able to answer some short questions. Patient consented to Spouse assisting with assessment. Spouse/Patient report that Patient has never completed a HCPOA. They expressed interest, and RETAIL CENTER RECEPTIONIST will follow to complete document when Patient is more alert and oriented. Spouse reports himself and Patient live in a ranch-style home with strong supports from their community, including 2 neighbors that have assisted at this time. He noted that himself and Patient recently returned from a visit to [facility] for their anniversary. Spouse reports that their 2 children will be visiting soon. RETAIL CENTER RECEPTIONIST explained SW role and offered resources. Spouse [...] Name and Contact information: Ike Acuna P: [phone] Adult Child(jj), List All Adult Children: Yes Name and Contact information: Donnell Acuna P: [phone]; Nathen Acuna P: [phone] Would you like to add additional adult [...] for Advance Care Planning? : Patient Agreeable (RETAIL CENTER RECEPTIONIST to follow for HCPOA completion when Patient [...] this time) [facility] [address] [place] [phone] [phone] [address] Living Environment and Support System Is the patient from a facility or halfway?: No Living Environment: House ("1 bedroom ranch") Patient Caregiving Responsibilities: Self Patient-identified caregiver/support network: Family, Friends, Neighbors, Yazidi Who does the patient identify as a [...] themselves at home? : Unable to assess Safety Lamp Keeper Does the patient or student services representative express financial concerns? : No Chela Snyder Social Work Student Available by Secure Chat Cosigned by OWEN Keller at 08/03/2024 11:20 AM EDT * Balbir Mccoy, MATTRESS AND FOUNDATION SEWER-ORDER CONTROL CLERK BLOOD BANK - 08/03/2024 7:40 AM EDT NEUROCRITICAL CARE [...] Visual richards intact to confrontation. PERRL. 3mm hypo dipper III, IV and : EOMI. No nystagmus. [...] SpO2 >92%; wean FiO2 as tolerated - [id number], encourage pulmonary toileting Cards: Essential HTN HLD [...] - Bowel regimen: - Last Bowel Movement: (PORT PURSER) - Senna, miralax Stress ulcer prophylaxis: - none Dysphagia - DHT placed - ASSISTANT STORE MANAGER OPERATIONS following - Tube feed: Vital AF with [...] prophylaxis - rationale: post thrombectomy [x] Lines [place]: n/a Marina: inserted 08/02, (indication: strict I&O) [...] the assigned neurocritical care provider (resident, fellow, DIE STAMPER, orPA) or page/call the corresponding number below NCC1 (Beds 3076-9760): [place] # [phone], pager #[phone] NCC2 (Beds 3339-5131, 12 Nando, and overflow): [place] #: [phone], pager #[phone] * Nando Caceres MD - 08/03/2024 6:00 [...] nccu Neurosurgery signing off Please page NS2 ([phone]) with questions Complexity. Hypocalcemia - Continue to [...] any questions, Name: Andreas Ga RPH Phone: [phone] Date/Time: 08/02/2024 10:57 PM * Richard Mejia MD - 08/02/2024 6:01 PM EDT I have independently seen and examined the patient on 08/02/24. I agree with the history, examination, assessment and plan as documented by the DIE STAMPER with my changes/additions added. Patient is a [...] to determine stroke burden - Statin - PT/OT/ASSISTANT STORE MANAGER OPERATIONS evaluation Pulmonary: No acute issues, appears to [...] stage 3a - Maintain euvolemia GI/Nutrition: - ASSISTANT STORE MANAGER OPERATIONS evaluation - Bowel regimen to prevent constipation [...] and other supportive care as per the DIE STAMPER note from the same day This patient [...] Neurocritical Care Attending [facility]* Niru Koch MD - [...] today. Consent obtained by at bedside. - ASSISTANT STORE MANAGER OPERATIONS eval: none - RD eval: none PAST [...] dependence ASSESSMENT/RECOMMENDATIONS: - primary team feels that occupational therapist assistants enteric nutrition is warranted in s/o CVA. Patient is appropriate for endoscopic PEG placement. Consent obtained from at bedside. - we will tentatively plan for EGD for PEG placement 08/09 as add on case. See pre procedure recommendations below. For PEG: - Ancef ordered (1 gm if patient is <80 kg; 2 gm if patient is >80 kg) as "safety companion to the procedure"). - Please make NPO [...] Hepatology, and Nutrition Clinical Fellow PGY-4 Pager: [phone] For urgent/stat calls 5pm to 7am or all day on the weekend, please page the on- call GI fellow on WebExchange. IM Consult Serv [facility] --> [facility] STAT/NEW GI consults For follow up questions regarding this patient, contact the IBD consults fellow or DAHLIA on WebLookletchange. IM Consult Serv [facility]N --> [facility] [...] and medical decisions as outlined. Need for occupational therapist assistants non-oral enteric nutrition per primary team. We will facilitate this with planned PEG tube placement. Before placement, non-GI management of TF should be established to avoid delays. David Woods M.D. 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 Prema Ramos M.D. Container Filler Department of Neurosurgery [facility] * Taran Zamudio León, MATTRESS AND FOUNDATION SEWER-ORDER CONTROL CLERK BLOOD BANK - 08/02/2024 2:44 PM EDT Neurovascular Evaluation [...] speech and L hemiplegia. She presented to [facility] and was seen on Telestroke, NIHSS [...] Scales Flowsheet Row Most Recent Value Modified Alcova Scale Score Premorbid (MRSS) 0 filed on [...] solution Intravenous Continuous PRN Bebo Barboza APRN- LIBRARY CIRCULATION TECHNICIAN New Bag at 08/02/24 1507 Scheduled Meds: [...] protrudes midline Motor: L hemiplegia Reflexes: Coordination: Knvuik-cj-ezrj intact on the R, unable to test [...] ED. Continuous telemetry -PT, OT, Speech and oncology social worker consults Other problems: Complexity. Any [...] speech and L hemiplegia. She presented to [facility] and was seen on Telestroke, NIHSS [...] Delbert Kasper MD documented [facility] Procedure note* Tanja Hunter, ASSISTANT STORE MANAGER OPERATIONS - 08/06/2024 9:32 AM EDTAssociated Order(s): SPEECH [...] the below outcome measures/assessment score(s), MBS, and ASSISTANT STORE MANAGER OPERATIONS clinical judgment, discharge destination recommendation is: IP Rehab Facility. Patient demonstrates good candidacy for discharge to: IRF. Additional supporting factors include: Impaired swallow functionlimiting nutritional status and safety with oral intake. Acute ASSISTANT STORE MANAGER OPERATIONS Outcomes Tracking Communicate basic wants and needs?: [...] speech and L hemiplegia. She presented to [facility] and was seen on Telestroke, NIHSS [...] Thin Barium: teaspoon x2, straw x2 Varibar [place] Barium: straw x1 Varibar Thin Honey Barium: [...] recommend NPO and nonoral meds. Ongoing skilled ASSISTANT STORE MANAGER OPERATIONS services indicated to address deficits and maximize [...] Therapeutic Interventions Met: yes, treatment indicated Acute ASSISTANT STORE MANAGER OPERATIONS Goals Plan of Care by Tanja Hunter, ASSISTANT STORE MANAGER OPERATIONS at 08/06/2024 9:33 AM Version 1 of 1 Problem: Dysphagia Goal: MBS - Patient will participate in Modified Barium Swallow (MBS) Study to objectively assess oropharyngeal swallow function to most appropriately guide ASSISTANT STORE MANAGER OPERATIONS plan of care Outcome: Met Goal: Bolus [...] Treatment Time (skilled, billable minutes): 20 minutes ASSISTANT STORE MANAGER OPERATIONS Evaluation and Treatment Time MBS/Motion Fluoroscopic Swallowing Eval 44742: 20 Speech Language Pathologist: RIKI Gonzales Time [...] end of session: none altered (RN present) ASSISTANT STORE MANAGER OPERATIONS Evaluation and Treatment Time MBS/Motion Fluoroscopic Swallowing Eval 53522: 20 Upon discontinuation of Acute Care Speech Therapy Services or patient discharge from the hospital this note represents the current Speech Therapy Discharge Summary [facility] Discharge instructions* Discharge Instructions* Jhoana Casarez APRN-ORDER CONTROL CLERK BLOOD BANK - 08/06/2024 8:38 AM EDT Please take [...] you at all times. Stroke Education: visit [email or web address] What are the most common symptoms of [...] all ordered medications [x] Avoid non-prescription or pmlr-ncs-diuqfip medication not cleared by your physician [x] [...] may call the neurovascular doctors office at [phone], if you have questions Mon-Fri between 8:30 am and 4:30 pm. - For off hours or the weekend you may call the office or the hospital mulcher operator at and ask for the stroke resident safety companion to be paged. - If you have any other questions or needs, please call Aniyah DOSS, RN, Stroke Nurse Navigator at [phone] Mon-Fri between 7:00am and 3:00pm. - Additional assistance may be found by reaching out to our Case Management Office at [phone]. *In the event of an Emergency: If you have a physical or psychiatric emergency call 911 or go to your local emergency department. You should also call your outpatient provider's emergency number. Other reference numbers: [facility] Intake Office at 157-052-7928; [facility] at 564-111-9245; or Suicide Prevention Hotline at 337-899-8706. *Helpful phone numbers: Free Crisis Hotline: 1-532-275-TALK ( ) Suicide Hotline: 677.277.1647 Seniors Suicide Hotline: 553.340.1995 [facility] Youth: 228.410.1796 Mental Health of [place]: 579.722.2735 (free counseling) [facility] Access Hotline: 346-115-AVST (749-876-7766) 24-hour crisis text hotline: Text the word "4hope" to 601-027 for crisis support. Texting this number is [...] may qualify for Medicaid/public assistance: The [facility] Department of Job and Family Services can now process zayas (TANF), food (SNAP) and Medicaid Applications over the phone. Please call 9-509-366[facility] (8987) and apply over the phone or apply online at www.benefits.[place].gov. Monday-Monday 8am-12pm noon. Medication Assistance Programs [employer] members can buy 100+ common prescriptions for FREE, $3 or $6. Annual membership is $36 for individuals and $72 for families (up to 6 people, including pets). Sign up online or enroll at your nearest pharmacy! [employer], web site can provide a significant number of coupons for medications at a much lower raymundo. [place] Department of Aging The Department of Aging administers programs and services to meet the needs of older [place]. Services and resources offered per [facility] may include transportation, housekeeping, meals and nutrition, personal care, case management, safety monitoring, home medical equipment, legal services, financial foundations representative, health and wellness, education, caregiver support, respite care, etc. Call to be connected to the [facility] agency on aging serving your community or visit aging.[place].gov/find-services. Request a consultation with a community resource expert at ltssi.age.[place].gov/ [facility] Stroke Support The [facility] Stroke Support Group is for stroke survivors, friends, and family members. Meets on the Monday of each month from 6:30pm-7:30pm at [facility] ([address]; [place] [address]). Contact Chela Nolan, at [phone] or [email or web address]. If you are outside of the [place] area, contact The [place] Stroke [employer] at www.stroke.org or 0-636-0-STROKE or for support groups in your area. You may also refer to the Your Care after a Stroke education booklet at go.[facility]/dzcr4046 for additional resources. * Medications* PATRIZIA Miner - 08/06/2024 8:38 AM EDT Know your medicines Make sure you know why you are taking each medicine. Make a master list of all your medicines. Write down the medicine names and doctors' names. Includedoses and side effects too. And write down why you take each medicine. Include all prescription auhomlp-mmz-glavioo medicines, vitamins, and supplements. Keep this list [...] plan your refills so that you can vegetable picker all your medicines at the same [...] changed every 6 months. [facility] History and physical note* Balbir Hwang Nadine, MATTRESS AND FOUNDATION SEWER-ORDER CONTROL CLERK BLOOD BANK - 08/02/2024 6:00 PM EDT NEUROCRITICAL CARE [...] Visual richards intact to confrontation. PERRL. 3mm hypo dipper III, IV and : EOMI. No nystagmus. [...] SpO2 >92%; wean FiO2 as tolerated - [id number], encourage pulmonary toileting Cards: Essential HTN HLD [...] prophylaxis - rationale: post thrombectomy [x] Lines [place]: n/a Marina: n/a Rectal tube: n/a Enteral [...] the assigned neurocritical care provider (resident, fellow, DIE STAMPER, orPA) or page/call the corresponding number below NCC1 (Beds 7496-6347): [place] # [phone], pager #[phone] NCC2 (Beds 2371-6721, 12 Nando, and overflow): [place] #: [phone], pager #[phone] Cosigned by Richard Mejia MD at 08/02/2024 11:14 PM EDT documented in this encounterOS[facility] Nurse Note* Rachell Ruffin RN - 08/02/2024 3:13 PM EDT 9 cc air instilled in right radial TR band @ 1520. Glasses placed in bag wit label. Sent to PACU with patient on cart. documented in this encounterOS[facility] Discharge summary [facility] Medical Records Department [address] [place] [address] Emergency Department Summary 08/02/24 MR#: [id number] Acct: [id number] Name: LINDSAY ACUNA Rep #:[id number] : [...] she is "on round 2." [facility] Medical History Paroxysmal atrial fibrillation with RVR [...] 71.4 H Lymph % (Auto) 17.9 L Carbon % (Auto) 8.9 Eos % (Auto) 1.0 [...] impression: No significant stenosis seen. Reading Location: [place] [address] Rhythm Strip Rhythm Strip: A-fib Rate: 90 Ectopy: None EKG Initial EKG: Attestation: I personally reviewed and interpreted this EKG as follows: Interpretation: No Acute Injury Pattern, Atrial Fibrillation and Non-Specific ST Changes Management Discussion w/another healthcare provider: Parcel Wrapper ([facility] stroke neurology) and Radiologist Stroke Documentation [...] min), Including time spent:, Discussing w/Patient &/or Family/Student Nurse, Discussing w/Consultants, Arranging Admission or Transfer and [...] MD [Primary Care Provider] - Print Language: Brazilian Disposition Disposition: Acute Care Hospital [facility] [place] What to do if you have Problems For any increased pain, shortness of breath, bleeding, nausea or vomiting, chestpain, or any unexpected problems, contact your Primary Care Provider. Call [facility] ([phone]) or report tothe closest Emergency Room. Call 911 if necessary. 08/02/24 1316 Cosigner Signature (if applicable): CC: Dr. Kameron Caruso MD ~ Signed [facility]03-21-2025 Radiology Diagnostic study note [facility] Imaging Services [address] [place] [address] STROKE CTA Head AND Neck W/Con MR#: [id number] Acct: [id number] Name: LINDSAY ACUNA Rep #: [id number] : 1945 F 78 From: Regulo Hargrove MD PCP: Dr. Kameron Caruso MD Status: RE G ER Study:STROKE CTA Head AND Neck W/Con Date of Exam: 08/02/24 Exam# [id number] Ordering Dr: Roby Morgan MD PROCEDURE: STROKE [...] impression: No significant stenosis seen. Reading Location: [place] [address] CC: Dr. Pieter Morgan MD; Dr. Kameron Caruso MD ~ Switch Cleaner: Signed [facility]03-21-2025 Radiology Diagnostic study note [facility] Imaging Services [address] [place] [address] [id number] STROKE Brain/Head without Cont MR#: [id number] Acct: [id number] Name: LINDSAY ACUNA Rep #: [id number] : 1945 F 78 From: Shira Cardoso MD PCP: Dr. Kameron Caruso MD Status: RE G ER Study:STROKE Brain/Head without Cont Date of Exam: 08/02/24 Exam# [id number] Ordering Dr: Roby Morgan MD EXAM: CT [...] Morgan MD; Dr. Kameron Caruso MD ~ Switch Cleaner: Signed [facility]02-19-2025 Telephone encounter Note* Telephone Encounter - Mj Glover APRN.CNP - 07/03/2024 12:28 PM EST The following approved medication requests have been transmitted electronically. Requested Prescriptions Signed Prescriptions Disp Refills doxycycline monohydrate (MONODOX) 100 mg capsule 56 capsule 0 Sig: Take 1 capsule by mouth two times a day for 28 days. Authorizing Provider: MJ GLOVER APRN.CNP [facility]02-19-2025 Miscellaneous Notes* Telephone Encounter - [...] calling: self Call patient at: on cell [phone] (home) [phone] (cell) Was an appointment scheduled: No Closing statement: Results or non-symptom based questions: Thank you for calling [facility], your call will be returned within the next business day. Katrina Coombs documented in this encounterPremier Health [facility] Center02-19-2025 Telephone encounter Note * Telephone [...] calling: self Call patient at: on cell [phone] (home) [phone] (cell) Was an appointment scheduled: No Closing statement: Results or non-symptom based questions: Thank you for calling [facility], your call will be returned within the next business day. Katrina Coombs [facility]02-18-2025 Telephone encounter Note* Telephone Encounter - Katia Álvarez RN - 07/02/2024 11:57 AM EST Patient calls and is requesting Cardiology referral to be faxed to [facility]. Faxed referral as requested. Katia Álvarez RN [facility]02-18-2025 Miscellaneous Notes* Telephone Encounter - Katia Álvarez RN - 07/02/2024 11:57 AM EST Patient calls and is requesting Cardiology referral to be faxed to [facility]. Faxed referral as requested. Katia Álvarez RN documented in this encounterPremier Health [facility] Center02-17-2025 Telephone encounter Note * Telephone Encounter - Bret Arambula LPN - 07/01/2024 12:39 PM EST Patient notified of Rx, verbalizes understanding of instructions. Bret Arambula LPN [facility]02-17-2025 Miscellaneous Notes* Telephone Encounter - [...] calling: self Call patient at: on cell [phone] (home) [phone] (cell) Was an appointment scheduled: Leslie Swanson documented in this encounterPremier Health [facility] Center02-17-2025 Telephone encounter Note * Telephone [...] 7 days. Authorizing Provider: MJ GLOVER APRN.CNP [facility]02-14-2025 Telephone encounter Note* Telephone Encounter - Adenike Walton MA - 06/28/2024 3:08 PM EST Please review pt message and advise. Adenike Walton MA [facility]02-14-2025 Telephone encounter Note* Telephone Encounter [...] calling: self Call patient at: on cell [phone] (home) [phone] (cell) Was an appointment scheduled: Leslie Swanson [facility]02-12-2025 Instructions* Patient Instructions* Emma Glasgow APRN.CNP - 06/26/2024 10:00 AM EST Recommend consult with cardiology Continue to take all medication as prescribed Get repeat thyroid labs when you get back from vacation Contact the office with preferred malaria medication Follow up in 6 months. documented in this encounterPremier Health [facility] Center02-12-2025 History of Present illness Narrative* [...] one times daily Dx: E11.29Insulin: No lancets (BringShareTOUCH DELICA PLUS LANCET) 30 gauge Test blood [...] APRN.GARRETT This note was partially generated using Existence Before Essence voice recognition system. Note was reviewed for accuracy. There may be minor misspellings or grammar miscues with Ex[employer] Before [employer] voice recognition. documented in this encounterPremier Health [facility] Medical Center02-12-2025 NoteHNO ID: [id number] Author: EMMA GLASGOW APRN.CNP Service: ? Author [...] hematochezia/melena. No heartburn o (more content not included)...[facility]02-10-2025 Telephone encounter Note* Telephone Encounter - Kameron Caruso MD - 06/24/2024 7:26 PM EST Noted Kameron Caruso MD [facility]02-10-2025 Miscellaneous Notes* Telephone Encounter - [...] this. Katia Álvarez RN documented in this encounterPremier Health [facility] Medical Center02-10-2025 Telephone encounter Note * Telephone Encounter - Katia Álvarez RN - 06/24/2024 1:20 PM EST Patient calls and states that she is going to be going to [facility] and will need medications for Malaria Patient does have appointment with provider tomorrow, but wanted to give provider heads up that she will be needing this. Katia Álvarez RN [facility]01-28-2025 Telephone encounter Note* Telephone Encounter - Naima Marshall RN - 06/11/2024 4:17 PM EST Pt called and is notified of providers results and instructions. Pt voices understanding. Naima Marshall RN [facility]01-28-2025 Miscellaneous Notes* Telephone Encounter - Naima Marshall RN - 06/11/2024 4:17 PM EST Pt called and is notified of providers results and instructions. Pt voices understanding. Naima Marshall RN * Telephone Encounter - Kameron Caruso MD - 06/11/2024 2:42 PM EST Please notify patient that her echocardiogram looks OK; continue with the meds as prescribed. Kameron Caruso MD documented in this encounterPremier Health [facility] Center01-28-2025 Telephone encounter Note * Telephone [...] and pick them up. Naima Marshall RN [facility]01-28-2025 Miscellaneous Notes* Telephone Encounter - [...] call and advise Pt. documented in this encounterPremier Health [facility]rium [facility] Center01-28-2025 Telephone encounter Note * Telephone Encounter - Kameron Caruso MD - 06/11/2024 2:42 PM EST Please notify patient that her echocardiogram looks OK; continue with the meds as prescribed. Kameron Caruso MD [facility]01-27-2025 Telephone encounter Note* Telephone Encounter [...] 5 mg twice daily. Adenike Walton MA [facility]01-27-2025 Telephone encounter Note* Telephone Encounter - Naima Marshall RN - 06/10/2024 2:05 PM EST Called and left a message with her to have the Pt call back for providers message. Naima Marshall RN [facility]01-27-2025 Telephone encounter Note* Telephone Encounter - Kameron Caruso MD - 06/10/2024 1:45 PM EST I would recommend she start on the Eliquis now Kameron Caruso MD [facility]01-27-2025 Telephone encounter Note* Telephone Encounter [...] taking it. Please call and advise Pt. [facility]01-17-2025 Instructions* Patient Instructions* Kameron Caruso [...] medications and Echo results. documented in this encounterPremier Health Atrium Medical Center01-17-2025 History of Present illness Narrative* [...] and Amaryl 2 mg daily. Follows with [facility]. Thyroid: Taking Synthroid 75 mcg daily. [...] past year, follows with Dr. Park at [facility]. Past medical history, appointments, medications, allergies [...] kidney disease, unspecified CKD stage, unspecified whether care home insulin use (HCC) - ICD9: 250.40, [...] independently gathered by the clinical customer support professional and the remaining scribed note accurately describes [...] AM. Adenike Walton MA documented in this encounterPremier Health [facility] Medical Center01-17-2025 NoteHNO ID: [id number] Author: KAMERON CARUSO MD Service: ? Author [...] and Amaryl 2 mg daily. Follows with [facility]. Thyroid: Taking Synthroid 75 mcg daily. [...] past year, follows with Dr. Park at [facility]. Past medical history, appointments, medications, allergies [...] mouth daily with breakfast. blood sugar diagnostic (InfraSearchUCH ULTRA TEST) test strip Test Blood Sugar [...] 27.28 kg/m? General Appearance: (more content not included)...[facility] 11-28-2023 Instructions* Patient Instructions* Adenike Walton MA - 11/28/2023 9:58 AM EDT Reducing Metformin XR 500 mg to 2 tabs once daily. New prescription sent for this. Colorectal Surgeon from [facility], Dr. Santiago Grajeda. Phone #:[phone] documented in this encounterPremier Health [facility] Medical Center07-16-2024 History of Present illness Narrative* [...] adenoma; duefor colonoscopy; will contact GI in [place] Lipid: Does not watch diet or exercise. [...] 1 tablet by mouth once daily. lancets (BringShareTOUCH DELICA PLUS LANCET) 30 gauge Test blood [...] kidney disease, unspecified CKD stage, unspecified whether care home insulin use (HCC) - ICD9: 250.40, [...] independently gathered by the clinical customer support professional and the remaining scribed note accurately describes [...] AM. Adenike Walton MA documented in this encounterPremier Health Atrium Medical Center07-16-2024 NoteHNO ID: [id number] Author: KAMERON CARSUO MD Service: ? Author Type: Physician Type: Progress Notes Filed: 11/28/2023 11:45 Note Text: Chief Complaint Patient presents with: F/U 6 Month HPI Lindsay L Armand is a 78 year old female who presents here today for 6 month follow up. Pt here today for her routine follow up. Is planning on going to [place] in June. No bowel, gi, or urinary concerns. Does have some urinary leakage. Hx of tubulovillous adenoma; due for colonoscopy; will contact GI in [place] Lipid: Does not watch diet or exercise. [...] mouth daily before breakfast. blood sugar diagnostic (MemberPass ULTRA TEST) test strip Test Blood Sugar [...] alert, in no acute (more content not included)...[facility]05-28-2024 NoteHNO ID: [id number] Author: DAVID DUPREE APRN.ORDER CONTROL CLERK BLOOD BANK Service: ? Author Type: Nurse Practitioner Type: [...] linear pattern noted highlighted (more content not included)...[facility] 10-10-2023 History of Present illness Narrative* David Dupree APRN.[facility] - 10/10/2023 7:36 AM EDT Images [...] mouth daily before breakfast. blood sugar diagnostic (BringShareTOUCH ULTRA TEST) test strip Test Blood Sugar [...] 1 tablet by mouth once daily. lancets (InfraSearchUCH DELICA PLUS LANCET) 30 gauge Test blood sugars 1 time daily. Dx: Type 2 DM Controlled E11.9. Insulin: no Chlorhexidine Gluconate (PERIDEX) 0.12 % solution Use 15 mL as instructed twice daily. Rinse aroundmouth for 30 seconds then expectorate blood sugar diagnostic (BringShareTOUCH ULTRA TEST STRIP) test strip Use to [...] of care. This note was generated using Existence Before Essence software. It may contain errors in wording, punctuation, or spelling. David Dupree APRN.GARRETT documented in this encounterPremier Health Atrium Medical Center05-17-2024 NoteHNO ID: [id number] Author: RADHA LEVINE APRN.GARRETT Service: ? Author Type: Nurse Practitioner Type: Progress Notes Filed: 09/29/2023 18:12 Note Text: This note was created using [employer]. Subjective Lindsay Acuna is a 77 year old female. 77 year old female with PMH HTN, hyperlipidemia, CKD, DM, thyroid presents for rash Acute onset of symptoms was 2 days PORT PURSER +bilateral hands, forearms +nape of neck +face +itching +redness Denies pain. Denies fever or chills Denies malaise or fatigue Denies new lotions, soaps, or medicines States that she was working out in the garden the same day the rash erupted. The history is provided by the patient. No foreign language professor was used. Rash This is a [...] kg/m? Physical Exam Vitals (more content not included)...[facility]05-17-2024 History of Present illness Narrative* Radha Levine APRN.ORDER CONTROL CLERK BLOOD BANK - 09/29/2023 2:32 PM EDT This note was created using op5riter. Subjective Lindsay Acuna is a 77 year old female. 77 year old female with PMH HTN, hyperlipidemia, CKD, DM, thyroid presents for rash Acute onset of symptoms was 2 days PORT PURSER +bilateral hands, forearms +nape of neck +face +itching +redness Denies pain. Denies fever or chills Denies malaise or fatigue Denies new lotions, soaps, or medicines States that she was working out in the garden the same day the rash erupted. The history is provided by the patient. No foreign language professor was used. Rash This is a [...] worsen. Radha Levine APRN.GARRETT documented in this encounterPremier Health [facility] Medical Center05-07-2024 Telephone encounter Note * Telephone Encounter - Mj Glover APRN.CNP - 09/19/2023 9:46 AM EDT The following approved medication requests have been transmitted electronically. Requested Prescriptions Pending Prescriptions Disp Refills glimepiride (AMARYL) 2 mg tablet 90 tablet 3 Sig: Take 1 tablet by mouth daily with breakfast. Mj Glover APRN.CNP [facility]05-07-2024 Miscellaneous Notes* Telephone Encounter - [...] you. Brigitte Dorsey RN. documented in this encounterPremier Health Atrium Medical Center05-07-2024 Telephone encounter Note * Telephone Encounter - Brigitet Dorsey RN - 09/19/2023 8:49 AM EDT [...] Please advise. Thank you. Brigitte Dorsey, RN. [facility]11-25-2023 Miscellaneous Notes* Telephone Encounter - Kameron Caruso MD - 04/08/2023 11:04 AM EST OK to refill as ordered Kameron Caruso MD * Telephone Encounter - Carmencita Baker LPN - 04/08/2023 10:57 AM EST Pt calling for refills. Last seen pcp 11/25/22. Next appt with pcp 05/30/23. documented in this encounterPremier Health Atrium Medical Center07-14-2023 Miscellaneous Notes* Telephone Encounter - Kameron Caruso MD - 11/25/2022 11:58 AM EDT Done Kameron Caruso MD * Telephone Encounter - Jaiden Paulino RN - 11/25/2022 10:43 AM EDT Patient asking pcp if you can cancel the jardiance on her med list, because it shows up on her MyChart, and she does not take it. documented in this encounterPremier Health Atrium Medical Center01-13-2023 History of Present illness Narrative* [...] BY MOUTH ONCE DAILY WITH BREAKFAST lancets (InfraSearchUCH DELICA PLUS LANCET) 30 gauge Test blood [...] Moderate Kameron Caruso MD documented in this encounterPremier Health Atrium Medical Center11-28-2022 Miscellaneous Notes* Telephone Encounter - [...] Isaac Mendez LPN * [facility] 04/11/2022 8:49 AM EST Patient has been identified by name and date of : Yes Requested Prescriptions No prescriptions requested or ordered in this encounter RX INSTRUCTIONS: Patient aware RX will be sent to pharmacy. No need to notify patient. [facility] documented in this encounterPremier Health Atrium Medical Center10-19-2022 Instructions* Patient Instructions* Emma Glasgow APRN.CNP - 03/02/2022 11:11 AM EDT Start prednisone taper, take with food. May use Tylenol while taking the steroid. May use flexeril 3 times daily as needed for muscle tension. May make you sleepy. You were given Toradol in the office. Apply heat to the area. Follow up if symptoms do not improve. documented in this encounterPremier Health Atrium Medical Center10-19-2022 History of Present illness Narrative* [...] the legs. Has has not tried any [id number] analgesia, refers that she does not like [...] were discussed and patient voices understanding. Emma Galsgow APRN.GARRETT This note was partially generated using Existence Before Essence voice recognition system. Note was reviewed for accuracy. There may be minor misspellings or grammar miscues with Ex[employer] Before [employer] voice recognition. documented in this encounterPremier Health Atrium Medical Center10-19-2022 Miscellaneous Notes* Telephone Encounter - [...] urine 11. : no Protocols used: Back [id number] documented in this encounterPremier Health Atrium Medical Center08-30-2022 Miscellaneous Notes* Telephone Encounter - [...] patient. Aditi Conley Pss documented in this encounterPremier Health Atrium Medical Center08-30-2022 Miscellaneous Notes* Telephone Encounter - [...] ONCE DAILY WITH BREAKFAST documented in this encounterPremier Health Atrium Medical Center08-04-2022 Miscellaneous Notes* Telephone Encounter - [...] request. Brigitte Dorsey RN documented in this encounterPremier Health [facility]rium [facility] Center07-12-2022 Miscellaneous Notes* Telephone Encounter - [...] mouth rinse is sent to [facility] Chlorhexidene Gluconate 0.12% Patient was instructed to contact office after her appointment with name of medication. PCP agreed to fill Please advise documented in this encounterPremier Health Atrium Medical Center07-12-2022 History of Present illness Narrative* [...] kidney disease, unspecified CKD stage, unspecified whether care home insulin use (HCC) - ICD9: 250.40, [...] independently gathered by the clinical customer support professional and the remaining scribed note accurately describes [...] AM. Adenike Walton Ma documented in this encounterPremier Health [facility]rium Medical Center06-02-2022 Miscellaneous Notes* Telephone Encounter - Kameron Caruso MD - 10/14/2021 9:34 AM EDT Order filed Kameron Caruso MD * Telephone Encounter - Adenike Walton Ma - 10/14/2021 9:20 AM EDT Pt stopped in the office and is requesting a new meter to be sent into [facility]. Pt uses One[employer] Meter. Adenike Walton Ma documented in this encounterPremier Health [facility]rium Medical Center05-31-2022 Miscellaneous Notes* Telephone Encounter - [...] were going to go to [facility] they have closed the border there and they are now going to [facility]. 1. Please advise if they have [...] back. Shreya Barrios LPN documented in this encounterPremier Health Atrium Medical Center05-09-2022 Miscellaneous Notes* Telephone Encounter - [...] 11:42 AM EDT According to the [facility] travel site Typhoid vaccine is also [...] Please call and advise. documented in this encounterPremier Health Atrium Medical Center06-22-2021 History of Past illness Narrative* Problem Noted Date Resolved Date Hypertensive kidney disease with stage 3 chronic kidney disease 11/03/2020 11/05/2020 Diabetes mellitus with renal complications 05/0111/03/2020 PURE HYPERCHOLESTEROLEM 11/27/19 14 DIABETES MELLITUS TYPE II-UNCOMPL 11/26/2013 documented as of this encounter (statuses as of 09/20/2021) [facility] History of Past illness Narrative* Problem Noted Date Resolved Date Hypertensive kidney disease with stage 3 chronic kidney disease 11/03/2020 11/05/2020 Diabetes mellitus with renal complications 05/0111/03/2020 PURE HYPERCHOLESTEROLEM 11/27/19 14 DIABETES MELLITUS TYPE II-UNCOMPL 11/26/2013 documented as of this encounter (statuses as of 10/12/2021) [facility] History of Past illness Narrative* Problem Noted Date Resolved Date Hypertensive kidney disease with stage 3 chronic kidney disease 11/03/2020 11/05/2020 Diabetes mellitus with renal complications 05/0111/03/2020 PURE HYPERCHOLESTEROLEM 11/27/19 14 DIABETES MELLITUS TYPE II-UNCOMPL 11/26/2013 documented as of this encounter (statuses as of 10/14/2021) [facility] History of Past illness Narrative* Problem Noted Date Resolved Date Hypertensive kidney disease with stage 3 chronic kidney disease 11/03/2020 11/05/2020 Diabetes mellitus with renal complications 05/0111/03/2020 PURE HYPERCHOLESTEROLEM 11/27/19 14 DIABETES MELLITUS TYPE II-UNCOMPL 11/26/2013 documented as of this encounter (statuses as of 11/23/2021) [facility] History of Past illness Narrative* Problem Noted Date Resolved Date Hypertensive kidney disease with stage 3 chronic kidney disease 11/03/2020 11/05/2020 Diabetes mellitus with renal complications 05/0111/03/2020 PURE HYPERCHOLESTEROLEM 11/27/19 14 DIABETES MELLITUS TYPE II-UNCOMPL 11/26/2013 documented as of this encounter (statuses as of 11/23/2021) [facility] History of Past illness Narrative* Problem Noted Date Resolved Date Hypertensive kidney disease with stage 3 chronic kidney disease 11/03/2020 11/05/2020 Diabetes mellitus with renal complications 05/0111/03/2020 PURE HYPERCHOLESTEROLEM 11/27/19 14 DIABETES MELLITUS TYPE II-UNCOMPL 11/26/2013 documented as of this encounter (statuses as of 12/16/2021) [facility] History of Past illness Narrative* Problem Noted Date Resolved Date Hypertensive kidney disease with stage 3 chronic kidney disease 11/03/2020 11/05/2020 Diabetes mellitus with renal complications 05/0111/03/2020 PURE HYPERCHOLESTEROLEM 11/27/19 14 DIABETES MELLITUS TYPE II-UNCOMPL 11/26/2013 documented as of this encounter (statuses as of 01/11/2022) [facility] of Past illness Narrative* Problem Noted Date Resolved Date Hypertensive kidney disease with stage 3 chronic kidney disease 11/03/2020 11/05/2020 Diabetes mellitus with renal complications 05/0111/03/2020 PURE HYPERCHOLESTEROLEM 11/27/19 14 DIABETES MELLITUS TYPE II-UNCOMPL 11/26/2013 documented as of this encounter (statuses as of 01/11/2022) [facility] of Past illness Narrative* Problem Noted Date Resolved Date Hypertensive kidney disease with stage 3 chronic kidney disease 11/03/2020 11/05/2020 Diabetes mellitus with renal complications 05/0111/03/2020 PURE HYPERCHOLESTEROLEM 11/27/19 14 DIABETES MELLITUS TYPE II-UNCOMPL 11/26/2013 documented as of this encounter (statuses as of 03/02/2022) [facility] of Past illness Narrative* Problem Noted Date Resolved Date Hypertensive kidney disease with stage 3 chronic kidney disease 11/03/2020 11/05/2020 Diabetes mellitus with renal complications 05/0111/03/2020 PURE HYPERCHOLESTEROLEM 11/27/19 14 DIABETES MELLITUS TYPE II-UNCOMPL 11/26/2013 documented as of this encounter (statuses as of 03/02/2022) [facility] of Past illness Narrative* Problem Noted Date Resolved Date Hypertensive kidney disease with stage 3 chronic kidney disease 11/03/2020 11/05/2020 Diabetes mellitus with renal complications 05/0111/03/2020 PURE HYPERCHOLESTEROLEM 11/27/19 14 DIABETES MELLITUS TYPE II-UNCOMPL 11/26/2013 documented as of this encounter (statuses as of 04/11/2022) [facility] of Past illness Narrative* Problem Noted Date Resolved Date Hypertensive kidney disease with stage 3 chronic kidney disease 11/03/2020 11/05/2020 Diabetes mellitus with renal complications 05/0111/03/2020 PURE HYPERCHOLESTEROLEM 11/27/19 14 DIABETES MELLITUS TYPE II-UNCOMPL 11/26/2013 documented as of this encounter (statuses as of 05/27/2022) [facility] [facility] History of Past illness Narrative* Problem Noted Date Diagnosed Date Resolved Date Hypertensive kidney disease with stage 3 chronic kidney disease 11/03/2020 11/05/2020 Diabetes mellitus with renal complications 05/01/2014 11/03/2020 PURE HYPERCHOLESTEROLEM 07/1 09/2013 DIABETES MELLITUS TYPE II-UNCOMPL 11/26/2013 documented as of this encounter (statuses as of 11/25/2022) [facility] History of Past illness Narrative* Problem Noted Date Diagnosed Date Resolved Date Hypertensive kidney disease with stage 3 chronic kidney disease 11/03/2020 11/05/2020 Diabetes mellitus with renal complications 05/01/2014 11/03/2020 PURE HYPERCHOLESTEROLEM 11/12 DIABETES MELLITUS TYPE II-UNCOMPL 11/26/2013 documented as of this encounter (statuses as of 04/08/2023) [facility] History of Past illness Narrative* Problem Noted Date Diagnosed Date Resolved Date Hypertensive kidney disease with stage 3 chronic kidney disease 11/03/2020 11/05/2020 Diabetes mellitus with renal complications 05/01/2014 11/03/2020 PURE HYPERCHOLESTEROLEM 11/12 DIABETES MELLITUS TYPE II-UNCOMPL 11/26/2013 documented as of this encounter (statuses as of 04/08/2023) [facility] Author Pieter Morgan [facility] Note Date/Time August 02, 2024 1:1 6pm [facility] Medical Records Department [address] [place] [id number] Emergency Department Summary 08/02/24 MR#: [id number] Acct: [id number] Name: LINDSAY ACUNA Rep #:[id number] : [...] she is "on round 2." [facility] Medical History Paroxysmal atrial fibrillation with RVR [...] 71.4 H Lymph % (Auto) 17.9 L Carbon % (Auto) 8.9 Eos % (Auto) 1.0 [...] impression: No significant stenosis seen. Reading Location: [place] [address] Rhythm Strip Rhythm Strip: A-fib Rate: 90 Ectopy: None EKG Initial EKG: Attestation: I personally reviewed and interpreted this EKG as follows: Interpretation: No Acute Injury Pattern, Atrial Fibrillation and Non-Specific ST Changes Management Discussion w/another healthcare provider: Parcel Wrapper ([facility] stroke neurology) and Radiologist Stroke Documentation [...] min), Including time spent:, Discussing w/Patient &/or Family/Student Nurse, Discussing w/Consultants, Arranging Admission or Transfer and [...] MD [Primary Care Provider] - Print Language: Brazilian Disposition Disposition: Acute Care Hospital Discharge Location: [place] [facility] What to do if you have Problems For any increased pain, shortness of breath, bleeding, nausea or vomiting, chestpain, or any unexpected problems, contact your Primary Care Provider. Call [facility] ([phone]) or report to the closest Emergency Room. Call 911 if necessary. 08/02/24 1316 <Electronically signed by Pieter Morgan MD> Cosigner Signature (if applicable): CC: Dr. Kameron Caruso MD ~ Signed [facility] Work Phone: Evaluation note* Diagnosis Need for vaccination- Primary Need for prophylactic vaccination and inoculation against unspecified single disease documented in this encounter [facility] note* Diagnosis Type 2 diabetes mellitus with diabetic chronic kidney disease, unspecified CKD stage, unspecified whether occupational therapist assistants insulin use (HCC)- Primary Essential hypertension, benign Hyperlipidemia, unspecified hyperlipidemia type Stage 3b chronic kidney disease (HCC) Hypothyroidism, unspecified type Memory loss [facility] Diagnosis Type 2 diabetes mellitus with diabetic chronic kidney disease, unspecified CKD stage, unspecified whether care home insulin use (HCC)- Primary documented in this encounter [facility] note* Diagnosis Hyperlipidemia, unspecified hyperlipidemia type Essential hypertension, benign Type 2 diabetes mellitus with diabetic chronic kidney disease, unspecified CKD stage, unspecified whether occupational therapist assistants insulin use (HCC) documented in this encounter [facility] note* Diagnosis Type 2 diabetes mellitus with diabetic chronic kidney disease, unspecified CKD stage, unspecified whether occupational therapist assistants insulin use (HCC) Essential hypertension, benign Hyperlipidemia, unspecified hyperlipidemia type documented in this encounter [facility] note* Diagnosis Acute midline low back pain without sciatica- Primary documented in this encounter [facility] note* Diagnosis Type 2 diabetes mellitus with diabetic chronic kidney disease, unspecified CKD stage, unspecified whether care home insulin use (HCC)- Primary documented in this encounter [facility] note* Diagnosis Essential hypertension, benign- Primary Hypothyroidism, unspecified type Type 2 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, without long-term current use of insulin (HCC) Hyperlipidemia, unspecified hyperlipidemia type Chronic kidney disease, stage 3a (HCC) Edema of left lower leg Wellness examination documented in this encounter [facility] note* Diagnosis Type 2 diabetes mellitus with diabetic chronic kidney disease, unspecified CKD stage, unspecified whether care home insulin use (HCC) documented in this encounter [facility] note* Diagnosis Allergic contact dermatitis due to plant- Primary Contact dermatitis and other eczema due to plants (except food) documented in this encounter [facility] note* Diagnosis Rash- Primary Rash and other nonspecific skin eruption documented in this encounter [facility] note* Diagnosis Type 2 diabetes mellitus with diabetic chronic kidney disease, unspecified CKD stage, unspecified whether occupational therapist assistants insulin use (HCC)- Primary Essential hypertension, benign Chronic kidney disease, stage 3a (HCC) Hyperlipidemia, unspecified hyperlipidemia type Hypothyroidism, unspecified type Edema of left lower leg Memory loss documented in this encounter [facility] note* Diagnosis Essential hypertension, benign- Primary Type 2 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, without long-term current use of insulin (HCC) Chronic kidney disease, stage 3a (HCC) Hyperlipidemia, unspecified hyperlipidemia type Hypothyroidism, unspecified type Edema of left lower leg Memory loss Urinary incontinence, unspecified type Irregular heart beat Cardiac dysrhythmia, unspecified Atrial fibrillation, unspecified type (HCC) documented in this encounter [facility] note* Diagnosis Atrial fibrillation, unspecified type (HCC)- Primary Hypothyroidism, unspecified type Need for malaria prophylaxis [facility] Diagnosis History of traveler's diarrhea- Primary Personal history of other diseases of digestive system documented in this encounter [facility] note* Diagnosis History of traveler's diarrhea Personal history of other diseases of digestive system documented in this encounter [facility] noteNo assessment information availableWHenry County Hospital Work [...] as uncontrolled [facility] N[facility]ative No data available for this section [place] Reason for referral (narrative)* Outpatient Procedure (Routine) - Pending Review Specialty Diagnoses / Procedures Referred By Contteofilo t Referred [facility] Diagnoses Atrial fibrillation, unspecified type (HCC) Procedures ECHO ECHO TTHRC R-T 2D W/WOM-MODE COMPL SPEC&COLR D Kameron Caruso MD [address] [place] [address] [facility] [place] [address] [place] [address] Referral ID Status Reason Start Date Expiration Date Visits Requested Visits Authorized [id number] Pending Review Auto-Generat ed Referral 05/31/2024 05/31/2025 1 1 * Outpatient Procedure (Routine) - New Request Specialty Diagnoses / Procedures Referred By Contteofilo t Referred To Contact [facility] Diagnoses Irregular heart beat Procedures ECG COMPLETE ECG ROUTINE ECG W/LEAST 12 LDS W/I&R Kameron Caruso MD [address] [place] [address] [facility] [place] [address] [place] [address] Referral ID Status Reason Start Date Expiration Date Visits Requested Visits Authorized [id number] New Request Auto-Generat ed Referral 05/31/2024 05/31/2025 1 1 [facility] for referral (narrative)No reason for referral information availableWHenry County Hospital Work Phone: Reason for visit Narrative* Auth/Cert Specialty Diagnoses / Procedures Referred By Contac t Referred To Contact Diagnoses Acute ischemic right MCA stroke Cerebrovascular Accident (Level A Ishemic Stroke) Prema Rodgers MD [address] [place] [address] Phone: tel: fax: [facility] [address] [place] [address] Referral ID Status Reason Start Date Expiration Date Visits Re quested Visits Authorized [id number] 1 1 [facility] Summary Purpose Family History No Family History Records Found Relationship Condition Age at Onset Recorded Date/T monse mother Diabetes mellitus Unknown Hypertension Unknown Psychiatric disorder Unknown grandmother Malignant neoplasm Unknown sister Disorder of thyroid Unknown Advance Directives No Advanced Directives Records FoundDocuments on File Type Date Recorded Patient Transformer Molder 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 Advance Directives and Living Will Power of Gourmet Coffee Attendant Latest Code Status on File Code Status Date Activated Date Inactivated Comments Full Code 01/09/2019 10:16 AM Latest Code Status on File Code Status Date Activated Date Inactivated Comments Full Code 10/16/2019 9:16 AM Full Code 01/09/2019 10:16 AM 01/09/2019 2:23 PM Documents on File Type Date Recorded Patient Transformer Molder 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 Advance Directive(s) 11/07/2018 6:45 AM Advance Directive(s) 09/29/2015 10:09 PM Advance Directive Response Recorded Date/ Time Living Will No August 02, 2024 12:46pm Do you have a Healthcare Power of Gourmet Coffee Attendant? No August 02, 2024 12:46pm Date Activated [...] patient had a polyp identified by on {time:41366}. Biopsies {are/were w not:9034} taken. The patient's usual bowel pattern is {bowel pattern:19130}. Bowel movements {bowel changes:60708} . {abd pain:73248}. The patient has noted{bleeding with BM:56711}. The patient {does/do/not:65380} have a family history of colon polyps. The patient {does/do/not:44683} have a family history of colon cancer. [...] WORK September 10, 2024 5:0 0am AFIB ([facility]) October 02, 2024 9:29a m Chief Complaint [...] WORK October 01, 2024 5:00a m AFIB ([facility]) October 02, 2024 9:29a m LAB WORK October 08, 2024 5:00a m MONTHLY EXAM October 09, 2024 5:45p m LONGTERM LAB WORK October 15, 2024 5:0 0am LONGTERM LAB WORK October 22, 2024 5: 00am LONGTERM LAB WORK October 23, 2024 5: 00am LONGTERM LAB WORK October 29, 2024 5: 00am [...] WORK October 01, 2024 5:00a m AFIB ([facility]) October 02, 2024 9:29a m LAB WORK October 08, 2024 5:00a m MONTHLY EXAM October 09, 2024 5:45p m LONGTERM LAB WORK October 15, 2024 5:0 0am LONGTERM LAB WORK October 22, 2024 5: 00am LONGTERM LAB WORK October 23, 2024 5: 00am LONGTERM LAB WORK October 29, 2024 5: 00am NEW CONCERN October 30, 2024 6:00 pm LONGTERM LAB WORK November 12, 2024 5:0 0am [...] MONTHLY EXAM October 09, 2024 5:45p m LONGTERM LAB WORK October 15, 2024 5:0 0am LONGTERM LAB WORK October 22, 2024 5: 00am NEW CONCERN October 22, 2024 12:4 5pm LONGTERM LAB WORK October 23, 2024 5: 00am LONGTERM LAB WORK October 29, 2024 5: 00am NEW CONCERN October 30, 2024 6:00 pm LONGTERM LAB WORK November 12, 2024 5:0 0am [...] WORK October 01, 2024 5:00a m [facility] October 02, 2024 9:29a m LAB WORK October 08, 2024 5:00a m MONTHLY EXAM October 09, 2024 5:45p m LONGTERM LAB WORK October 15, 2024 5:0 0am LONGTERM LAB WORK October 22, 2024 5: 00am NEW CONCERN October 22, 2024 12:4 5pm LONGTERM LAB WORK October 23, 2024 5: 00am LONGTERM LAB WORK October 29, 2024 5: 00am FU VISIT October 29, 2024 7:15 pm NEW CONCERN October 30, 2024 6:00 pm LONGTERM LAB WORK November 12, 2024 5:0 0am [...] MONTHLY EXAM October 09, 2024 5:45p m LONGTERM LAB WORK October 15, 2024 5:0 0am LONGTERM LAB WORK October 22, 2024 5: 00am NEW CONCERN October 22, 2024 12:4 5pm LONGTERM LAB WORK October 23, 2024 5: 00am LONGTERM LAB WORK October 29, 2024 5: 00am FU VISIT October 29, 2024 7:15 pm NEW CONCERN October 30, 2024 6:00 pm LONGTERM LAB WORK November 05, 2024 5: 00am LONGTERM LAB WORK November 12, 2024 5:0 0am LONGTERM LAB WORK November 19, 2024 4:0 0am New Concern November 20, 2024 10:49 am LABWORK November 25, 2024 2:00 am LONGTERM LAB WORK November 26, 2024 5: 20am New Concern November 28, 2024 4:43 pm LONGTERM LAB WORK December 03, 2024 5: 00am Chief Complaint Admit Date LAB WORK September 10, 2024 5:0 0am ADMISSION EXAM September 10, 2024 12: 49pm ADMISSION EXAM September 11, 2024 3:0 8pm LAB WORK September 17, 2024 5:00am LABWORK September 24, 2024 5:00a m LAB WORK September 29, 2024 5:44p m LAB WORK October 01, 2024 5:00a m AFIB ([facility]) October 02, 2024 9:29a m LAB WORK October 08, 2024 5:00a m MONTHLY EXAM October 09, 2024 5:45p m LONGTERM LAB WORK October 15, 2024 5:0 0am LONGTERM LAB WORK October 22, 2024 5: 00am NEW CONCERN October 22, 2024 12:4 5pm LONGTERM LAB WORK October 23, 2024 5: 00am LONGTERM LAB WORK October 29, 2024 5: 00am FU VISIT October 29, 2024 7:15 pm NEW CONCERN October 30, 2024 6:00 pm LONGTERM LAB WORK November 05, 2024 5: 00am LONGTERM LAB WORK November 12, 2024 5:0 0am LONGTERM LAB WORK November 19, 2024 4:0 0am New Concern November 20, 2024 10:49 am LABWORK November 25, 2024 2:00 am LONGTERM LAB WORK November 26, 2024 5: 20am LONGTERM LAB WORK December 03, 2024 5: 00am Chief Complaint Admit Date LAB WORK September 10, 2024 5:0 0am ADMISSION EXAM September 10, 2024 12: 49pm ADMISSION EXAM September 11, 2024 3:0 8pm LAB WORK September 17, 2024 5:00am LABWORK September 24, 2024 5:00a m LAB WORK September 29, 2024 5:44p m LAB WORK October 01, 2024 5:00a m AFIB ([facility]) October 02, 2024 9:29a m LAB WORK October 08, 2024 5:00a m MONTHLY EXAM October 09, 2024 5:45p m LONGTERM LAB WORK October 15, 2024 5:0 0am LONGTERM LAB WORK October 22, 2024 5: 00am NEW CONCERN October 22, 2024 12:4 5pm LONGTERM LAB WORK October 23, 2024 5: 00am LONGTERM LAB WORK October 29, 2024 5: 00am FU VISIT October 29, 2024 7:15 pm NEW CONCERN October 30, 2024 6:00 pm LONGTERM LAB WORK November 05, 2024 5: 00am LONGTERM LAB WORK November 12, 2024 5:0 0am LONGTERM LAB WORK November 19, 2024 4:0 0am New Concern November 20, 2024 10:49 am LABWORK November 25, 2024 2:00 am LONGTERM LAB WORK November 26, 2024 5: 20am New Concern November 28, 2024 4:43 pm LONGTERM LAB WORK December 03, 2024 5: 00am LONGTERM LAB WORK December 10, 2024 6: 20am LONGTERM LAB WORK December 17, 2024 5 :00am LONGTERM LAB WORK December 24, 2024 5:00am LONGTERM LAB WORK December 31, 2024 4:00am MONTHLY EXAM December 31, 2024 12 :07pm Chief Complaint Admit Date LONGTERM LAB WORK October 22, 2024 5: 00am NEW CONCERN October 22, 2024 12:4 5pm LONGTERM LAB WORK October 23, 2024 5: 00am LONGTERM LAB WORK October 29, 2024 5: 00am FU VISIT October 29, 2024 7:15 pm NEW CONCERN October 30, 2024 6:00 pm LONGTERM LAB WORK November 05, 2024 5: 00am LONGTERM LAB WORK November 12, 2024 5:0 0am LONGTERM LAB WORK November 19, 2024 4:0 0am New Concern November 20, 2024 10:49 am LABWORK November 25, 2024 2:00 am LONGTERM LAB WORK November 26, 2024 5: 20am New Concern November 28, 2024 4:43 pm LONGTERM LAB WORK December 03, 2024 5: 00am LONGTERM LAB WORK December 10, 2024 6: 20am LONGTERM LAB WORK December 17, 2024 5 :00am LONGTERM LAB WORK December 24, 2024 5:00am LONGTERM LAB WORK December 31, 2024 4:00am MONTHLY EXAM December 31, 2024 12 :07pm LONGTERM LAB WORK January 07, 2025 4:00am LONGTERM LAB WORK January 14 4:00am LABWORK January 21, 2025 5:00am LONGTERM LAB WORK January 28 5:00am LONGTERM LAB WORK February 04 5:07am Chief Complaint Admit Date LONGTERM LAB WORK November 12, 2024 5:0 0am LONGTERM LAB WORK November 19, 2024 4:0 0am New Concern November 20, 2024 10:49 am LABWORK November 25, 2024 2:00 am LONGTERM LAB WORK November 26, 2024 5: 20am New Concern November 28, 2024 4:43 pm LONGTERM LAB WORK December 03, 2024 5: 00am LONGTERM LAB WORK December 10, 2024 6: 20am LONGTERM LAB WORK December 17, 2024 5 :00am LONGTERM LAB WORK December 24, 2024 5:00am LONGTERM LAB WORK December 31, 2024 4:00am MONTHLY EXAM December 31, 2024 12 :07pm LONGTERM LAB WORK January 07, 2025 4:00am LONGTERM LAB WORK January 14 4:00am LABWORK January 21, 2025 5:00am LONGTERM LAB WORK January 28 5:00am LONGTERM LAB WORK February 04 5:07am LONGTERM LAB WORK February 11 6:03am LONGTERM LAB WORK February 25, 2025 4:07am Additional Source Comments INFORMATION SOURCE (unrecogn ized section and content) DATE CREATED AUTHOR 08/31/[address] [facility] ([place]) DATE CREATED AUTHOR AUTHOR'S ORGANIZ ATION 10/18/2019 [facility] DATE CREATED AUTHOR AUTHOR'S ORGANIZ ATION 08/04/2024 [facility] DATE CREATED AUTHOR AUTHOR'S ORGANIZ ATION 08/07/2024 [facility] DATE CREATED AUTHOR AUTHOR'S ORGANIZ ATION 09/01/2024 [facility] DATE CREATED AUTHOR AUTHOR'S ORGANIZ ATION 11/08/2024 [facility] DATE CREATED AUTHOR AUTHOR'S ORGANIZ ATION 02/17/2025 [facility] DATE CREATED AUTHOR AUTHOR'S ORGANIZ ATION 03/26/2025 [facility] Source Comments (unrecognize d section and content) In the event this informatio n is protected by the Federal Confidentiality of Alcohol and Drug Abuse Patient Records regulations: The Federal rules restrict any use of the information to criminally investigate or prosecute any alcohol or drug abuse patient.[facility] the event this information is protected by the Federal Confidentiality of Alcohol and Drug Abuse Patient Records regulations: The Federal rules restrict any use of the information to criminally investigate or prosecute any alcohol or drug abuse patient.[facility] CenterIn the event this information is protected by the Federal Confidentiality of Alcohol and Drug Abuse Patient Records regulations: The Federal rules restrict any use of the information to criminally investigate or prosecute any alcohol or drug abuse patient.[facility] Center[facility] the event this information is protected by the Federal Confidentiality of Alcohol and Drug Abuse Patient Records regulations: The Federal rules restrict any use of the information to criminally investigate or prosecute any alcohol or drug abuse patient.[facility] CenterIn the event this information is protected by the Federal Confidentiality of Alcohol and Drug Abuse Patient Records regulations: The Federal rules restrict any use of the information to criminally investigate or prosecute any alcohol or drug abuse patient.[facility] CenterIn the event this information is protected by the Federal Confidentiality of Alcohol and Drug Abuse Patient Records regulations: The Federal rules restrict any use of the information to criminally investigate or prosecute any alcohol or drug abuse patient.[facility] CenterIn the event this information is protected by the Federal Confidentiality of Alcohol and Drug Abuse Patient Records regulations: The Federal rules restrict any use of the information to criminally investigate or prosecute any alcohol or drug abuse patient.[facility] CenterIn the event this information is protected by the Federal Confidentiality of Alcohol and Drug Abuse Patient Records regulations: The Federal rules restrict any use of the information to criminally investigate or prosecute any alcohol or drug abuse patient.[facility] CenterIn the event this information is protected by the Federal Confidentiality of Alcohol and Drug Abuse Patient Records regulations: The Federal rules restrict any use of the information to criminally investigate or prosecute any alcohol or drug abuse patient.[facility] CenterIn the event this information is protected by the Federal Confidentiality of Alcohol and Drug Abuse Patient Records regulations: The Federal rules restrict any use of the information to criminally investigate or prosecute any alcohol or drug abuse patient.[facility] CenterIn the event this information is protected by the Federal Confidentiality of Alcohol and Drug Abuse Patient Records regulations: The Federal rules restrict any use of the information to criminally investigate or prosecute any alcohol or drug abuse patient.[facility] CenterIn the event this information is protected by the Federal Confidentiality of Alcohol and Drug Abuse Patient Records regulations: The Federal rules restrict any use of the information to criminally investigate or prosecute any alcohol or drug abuse patient.[facility] CenterIn the event this information is protected by the Federal Confidentiality of Alcohol and Drug Abuse Patient Records regulations: The Federal rules restrict any use of the information to criminally investigate or prosecute any alcohol or drug abuse patient.[facility] CenterIn the event this information is protected by the Federal Confidentiality of Alcohol and Drug Abuse Patient Records regulations: The Federal rules restrict any use of the information to criminally investigate or prosecute any alcohol or drug abuse patient.[facility] CenterIn the event this information is protected by the Federal Confidentiality of Alcohol and Drug Abuse Patient Records regulations: The Federal rules restrict any use of the information to criminally investigate or prosecute any alcohol or drug abuse patient.[facility] CenterIn the event this information is protected by the Federal Confidentiality of Alcohol and Drug Abuse Patient Records regulations: The Federal rules restrict any use of the information to criminally investigate or prosecute any alcohol or drug abuse patient.[facility] CenterIn the event this information is protected by the Federal Confidentiality of Alcohol and Drug Abuse Patient Records regulations: The Federal rules restrict any use of the information to criminally investigate or prosecute any alcohol or drug abuse patient.[facility] CenterIn the event this information is protected by the Federal Confidentiality of Alcohol and Drug Abuse Patient Records regulations: The Federal rules restrict any use of the information to criminally investigate or prosecute any alcohol or drug abuse patient.[facility] CenterIn the event this information is protected by the Federal Confidentiality of Alcohol and Drug Abuse Patient Records regulations: The Federal rules restrict any use of the information to criminally investigate or prosecute any alcohol or drug abuse patient.[facility] CenterIn the event this information is protected by the Federal Confidentiality of Alcohol and Drug Abuse Patient Records regulations: The Federal rules restrict any use of the information to criminally investigate or prosecute any alcohol or drug abuse patient.[facility] CenterIn the event this information is protected by the Federal Confidentiality of Alcohol and Drug Abuse Patient Records regulations: The Federal rules restrict any use of the information to criminally investigate or prosecute any alcohol or drug abuse patient.[facility] CenterIn the event this information is protected by the Federal Confidentiality of Alcohol and Drug Abuse Patient Records regulations: The Federal rules restrict any use of the information to criminally investigate or prosecute any alcohol or drug abuse patient.[facility] CenterIn the event this information is protected by the Federal Confidentiality of Alcohol and Drug Abuse Patient Records regulations: The Federal rules restrict any use of the information to criminally investigate or prosecute any alcohol or drug abuse patient.[facility] CenterIn the event this information is protected by the Federal Confidentiality of Alcohol and Drug Abuse Patient Records regulations: The Federal rules restrict any use of the information to criminally investigate or prosecute any alcohol or drug abuse patient.[facility] CenterIn the event this information is protected by the Federal Confidentiality of Alcohol and Drug Abuse Patient Records regulations: The Federal rules restrict any use of the information to criminally investigate or prosecute any alcohol or drug abuse patient.[facility] CenterIn the event this information is protected by the Federal Confidentiality of Alcohol and Drug Abuse Patient Records regulations: The Federal rules restrict any use of the information to criminally investigate or prosecute any alcohol or drug abuse patient.[facility] CenterIn the event this information is protected by the Federal Confidentiality of Alcohol and Drug Abuse Patient Records regulations: The Federal rules restrict any use of the information to criminally investigate or prosecute any alcohol or drug abuse patient.[facility] CenterIn the event this information is protected by the Federal Confidentiality of Alcohol and Drug Abuse Patient Records regulations: The Federal rules restrict any use of the information to criminally investigate or prosecute any alcohol or drug abuse patient.[facility] Reason for Visit (unrecogniz ed [...] [facility] requesting verbal agree to f ollow Care Teams (unrecognized sec tion and content) Forestry Professor Relationship Specialty Start Date End Date Kameron Caruso MD [address] [place] [address] PCP - General Family Practice 09/21/15 Forestry Professor Relationship Specialty Start Date End Date Kameron Caruso MD [address] [facility] [place] [address] PCP - General Family Practice 09/21/15 Forestry Professor Relationship Specialty Start Date End Date Kameron Caruso MD [address] [facility] [place] [address] PCP - General Family Practice 09/21/15 Forestry Professor Relationship Specialty Start Date End Date Kameron Caruso MD [address] [facility] [place] [address] PCP - General Family Practice 09/21/15 Forestry Professor Relationship Specialty Start Date End Date Kameron Caruso MD [address] [facility] [place] [address] PCP - General Family Practice 09/21/15 Forestry Professor Relationship Specialty Start Date End Date Kameron Caruso MD [address] [facility] [place] [address] PCP - General Family Practice 09/21/15 Forestry Professor Relationship Specialty Start Date End Date Kameron Caruso MD [address] [facility] [place] [address] PCP - General Family Medicine 09/21/15 Forestry Professor Relationship Specialty Start Date End Date Kameron Caruso MD [address] [facility] [place] [address] PCP - General Family Medicine 09/21/15 Forestry Professor Relationship Specialty Start Date End Date Kameron Caruso MD [address] [facility] [place] [address] PCP - General Family Medicine 09/21/15 Forestry Professor Relationship Specialty Start Date End Date Kameron Caruso MD [address] [facility] [place] [address] PCP - General Family Medicine 09/21/15 Forestry Professor Relationship Specialty Start Date End Date Kameron Caruso MD [address] [facility] [place] [address] PCP - General Family Medicine 09/21/15 Forestry Professor Relationship Specialty Start Date End Date Kameron Caruso MD [address] [facility] [place] [address] PCP - General Family Medicine 09/21/15 Forestry Professor Relationship Specialty Start Date End Date Kameron Caruso MD [address] [facility] [place] [address] PCP - General Family Medicine 09/21/15 Forestry Professor Relationship Specialty Start Date End Date Kameron Caruso MD [address] [facility] [place] [address] PCP - General Family Medicine 09/21/15 Forestry Professor Relationship Specialty Start Date End Date Kameron Caruso MD [address] [facility] [place] [address] PCP - General Family Medicine 09/21/15 Forestry Professor Relationship Specialty Start Date End Date Kameron Caruso MD [address] [facility] [place] [address] PCP - General Family Medicine 09/21/15 Emma Glasgow APRN.CNP [address] [facility] [place] [address] Chiropractic Assistant Family Medicine 04/21/24 Mj Glover APRN.ORDER CONTROL CLERK BLOOD BANK [address] [facility] [place] [address] Chiropractic Assistant Family Medicine 04/30/24 Forestry Professor Relationship Specialty Start Date End Date Kameron Caruso MD [address] [facility] [place] [address] PCP - General Family Medicine 09/21/15 Emma Glasgow APRN.ORDER CONTROL CLERK BLOOD BANK [address] [facility] [place] [address] Chiropractic Assistant Family Medicine 04/21/24 Mj Glover APRN.ORDER CONTROL CLERK BLOOD BANK [address] [facility] [place] [address] Chiropractic Assistant Family Medicine 04/30/24 Forestry Professor Relationship Specialty Start Date End Date Kameron Caruso MD [address] [facility] [place] [address] PCP - General Family Medicine 09/21/15 Emma Glasgow APRN.ORDER CONTROL CLERK BLOOD BANK [address] [facility] [place] [address] Chiropractic Assistant Family Medicine 04/21/24 Mj Glover [employer].ORDER CONTROL CLERK BLOOD BANK [address] [facility] [place] [address] Chiropractic Assistant Family Medicine 04/30/24 Forestry Professor Relationship Specialty Start Date End Date Kameron Caruso MD [address] [facility] [place] [address] PCP - General Family Medicine 09/21/15 Emma Glasgow APRN.ORDER CONTROL CLERK BLOOD BANK [address] [facility] [place] [address] Chiropractic Assistant Family Medicine 04/21/24 Mj Glover APRN.ORDER CONTROL CLERK BLOOD BANK [address] [place] [address] Chiropractic Assistant Family Medicine 04/30/24 Forestry Professor Relationship Specialty Start Date End Date Kameron Caruso MD [address] [place] [address] PCP - General Family Medicine 09/21/15 Emma Glasgow APRN.ORDER CONTROL CLERK BLOOD BANK [address] [place] [address] Chiropractic Assistant Family Medicine 04/21/24 Mj Glover APRN.ORDER CONTROL CLERK BLOOD BANK [address] [place] [address] Chiropractic Assistant Family Medicine 04/30/24 Forestry Professor Relationship Specialty Start Date End Date Kameron Caruso MD [address] [place] [address] PCP - General Family Medicine 09/21/15 Emma Glasgow APRN.ORDER CONTROL CLERK BLOOD BANK [address] [place] [address] Chiropractic Assistant Family Medicine 04/21/24 Mj Glover APRN.ORDER CONTROL CLERK BLOOD BANK [address] [place] [address] Chiropractic Assistant Family Medicine 04/30/24 Forestry Professor Relationship Specialty Start Date End Date Kameron Caruso MD [address] [place] [address] PCP - General Family Medicine 09/21/15 Emma Glasgow APRN.ORDER CONTROL CLERK BLOOD BANK [address] [facility] [place] [address] Chiropractic Assistant Family Medicine 04/21/24 Mj Glover APRN.ORDER CONTROL CLERK BLOOD BANK [address] [facility] [address] Chiropractic Assistant Family Medicine 04/30/24 Team Status: Active Member Role Status Dates Dr. Kameron Caruso MD Primary Care Provider Active Team Status: Inactive Member Role Status Dates Dr. Kameron Caruso MD Primary Care Provider Active Start: August 02, 2024 End: August 02, 2024 Dr. Pieter Morgan MD Emergency Provider Active Start: August 02, 2024 End: August 02, 2024 Forestry Professor Relationship Specialty Start Date End Date Kameron Caruso MD [address] [facility] [place] [address] PCP - General Family Medicine 08/03/24 Forestry Professor Relationship Specialty Start Date End Date Kameron Caruso MD [address] [facility] [address] PCP - General Family Medicine 09/21/15 Emma Glasgow APRN.ORDER CONTROL CLERK BLOOD BANK [address] [facility] [place] [address] Chiropractic Assistant Family Medicine 04/21/24 Mj Glover APRN.ORDER CONTROL CLERK BLOOD BANK [address] [facility] [address] Chiropractic Assistant Family Medicine 04/30/24 Team Status: Inactive Member [...] End: September 11, 2024 Bret Snyder NP, DIE STAMPER-C Attending Provider Active Start: September 11, 2024 [...] 2024 End: October 09, 2024 Bret Snyder DIE STAMPER, DIE STAMPER-C Attending Provider Active Start: October 09, 2024 [...] End: October 30, 2024 Bret Snyder NP DIE STAMPER-C Attending Provider Active Start: October 30, 2024 [...] End: October 22, 2024 Bret Snyder NP DIE STAMPER-C Attending Provider Active Start: October 22, 2024 [...] 2024 End: October 30, 2024 Bret Snyder DIE STAMPER, DIE STAMPER-C Attending Provider Active Start: October 30, 2024 [...] End: October 30, 2024 Bret Snyder NP DIE STAMPER-C Attending Provider Active Start: October 30, 2024 [...] End: September 11, 2024 Bret Snyder NP, DIE STAMPER-C Attending Provider Active Start: September 11, 2024 [...] 2024 End: October 09, 2024 Bret Snyder DIE STAMPER, DIE STAMPER-C Attending Provider Active Start: October 09, 2024 [...] 2024 End: October 22, 2024 Bret Snyder DIE STAMPER, DIE STAMPER-C Attending Provider Active Start: October 22, 2024 [...] 2024 End: November 20, 2024 Bret Snyder DIE STAMPER, DIE STAMPER-C Attending Provider Active Start: November 20, 2024 [...] 2024 End: November 28, 2024 Bret Snyder DIE STAMPER, DIE STAMPER-C Attending Provider Active Start: November 28, 2024 [...] Care Provider Active Start: December 24, 2024 Safai VARGAS MD Attending Provider Active Start: December [...] End: October 22, 2024 Bret Snyder NP DIE STAMPER-C Attending physician Active Start: October 22, 2024 [...] End: November 20, 2024 Bret Snyder NP DIE STAMPER-C Attending physician Active Start: November 20, 2024 [...] End: November 28, 2024 Bret Snyder NP DIE STAMPER-C Attending physician Active Start: November 28, 2024 [...] Inactive Member Role/Relationship Status Dates Dr. Kameron Carsuo MD Primary care physician Active Start: November [...] Eneida Cespedes RN)[phone] (Given - Provider: Eneida Csepedes RN) 0018 (Given - Provider: Shanna Catalan [...] Shaila Eng, RN)[phone] (Stopped - Provider: Eneida Csepedes RN) Glucerna 1.5 Ruiz LIQD PEG Tube, [...] is greater than 200mg/dl, then notify warehouse director. And BLOOD GLUCOSE (POC DEVICE) (CANCELED) Routine, [...] 50% needed, contact pharmacy or obtain from [employer] cart ++ And glucose (GLUTOSE) 40 % [...] at 1301, Until Specified, Who to Notify: Bank Compliance Officer, For all Blood Glucose LESS THAN 80 mg/dl, notify Bank Compliance Officer after treatment per Hypoglycemia in Non- Adults [...] BE BASED ON THE PRIMARY CLINICAL RECORDS. [employer] [facility]. provides no warranty or guarantee of the accuracy or completeness of information in this document.
[2025-04-29 07:58] LABS: Hematocrit 34.8 % (37-47); Hemoglobin 11.1 g/dL (12.0-15.0); Immature Granulocytes Count 0.030 X10^3/uL (0.0-0.0); Mean Corp Hgb Conc 31.9 g/dL (32-36); Mean Corpuscular Volume 94.6 fL (81-99); Mean Platelet Vol. 11.3 fl (6.2-12.0); NRBC Flagged by Analyzer 0 % (0-5); Platelet Count 255 K/mm3 (150-450); RBC Distribution Width CV 13.4 % (11.6-14.6); RBC Distribution Width SD 46.5 fl (35.1-43.9); Red Blood Count 3.68 M/mm3 (4.2-5.4); White Blood Count 7.8 K/mm3 (4.4-11.0)
[2025-04-29 08:10] LABS: Anion Gap 10 (5-15); BUN 16 mg/dL (4-19); BUN/Creat Ratio 20.4 RATIO (10-20); Calcium,Total 9.0 mg/dL (7.6-11.0); Carbon Dioxide 27.1 mmol/L (21.0-32.0); Chloride 104 mmol/L (98-108); Glucose 96 mg/dL (70-99); Potassium 3.7 mmol/L (3.3-5.1)
== END ==
LOC: OLS.WHLTCC 05:00
PROVIDERS: PCP Family Medicine; Visit Provider Internal Medicine
DX: E11.9 Type 2 diabetes mellitus without complications (principal); I10 Essential (primary) hypertension
CPT/HCPCS: 36415; 80048; 85025

== ENCOUNTER → 2025-05-06 04:00 | Outpatient (REF) | payer MEDICARE, SELFPAY ==
--- OUTSIDE RECORDS SUMMARY | 2025-05-06 03:48 | XMS RPT_ITS | CCD ---
Author Organization [facility] Care Team Providers Care Condenser Tube Tender Name Role Phone KETTY DOWNS Attending [...] Kameron Caruso MD Primary Care Provider Светлана RAC SPECIALIST.Emma TUCKER Unavailable Saurav RAC SPECIALIST.Mj TUCKER Unavailable JUVENTINO ROGERS Attending Unavailable JUVENTINO ROGERS Admitting Unavailable CATA ALFRED Attending Unavailable CATA ALFRED Admitting Unavailable Dr. Kameron Caruso MD Primary Care Provider Dr. Pieter Morgan MD Emergency Provider Kameron Caruso MD Primary Care Provider Светлана RAC SPECIALIST.Emma TUCKER Unavailable Unavail able KAMERON CARUSO Referring Unavailable KAMERON CARUSO Primary Care Unavailable KAMERON CARUSO Attending Unavailable KAMERON CARUSO Primary Care Unavailable EMMA GLASGOW Attending Unavailable ZULY, KAMERON Bebee Primary Care Unavailable ELDERBROCK, KAMERON Beebe Primary Care Unavailable ELDERBROCK, KAMERON Beebe Primary Care Unavailable ELDERBROCK, KAEMRON Beebe Referring Unavailable ELDERBROCK, KAMERON D Primary [...] Dr. Safia Ruelas MD Attending Provider Claudio BANK CREDIT CARD COLLECTION CLERK-CBret Attending Provider Safia Ruelas MD Referring Provider UnavailDr. Kameron Marquez MD Primary Care Provider [phone] Safia Ruelas MD Attending Provider UnavailDr. Safia Ulloa MD Attending Provider Claudio BANK CREDIT CARD COLLECTION CLERK-C, Bret Attending Provider Safia Ruelas MD Referring Provider UnavailDr. Kameron Marquez MD Referring Provider [phone] Dr. Mj Benavides MD Attending Provider Dr. Kameron Caruso MD Primary Care Physician Safia Ruelas MD Attending Physician Unavail able Claudio BANK CREDIT CARD COLLECTION CLERK-CBret Attending Physician Dr. Safia Ruelas MD Attending Physician Safia Ruelas MD Referring Provider Alexandra CARUSO MD, DR MELO Primary Care Unavailab shital PEARL DO, SILVINO Admitting Unavailable DAE DO, SILVINO Attending Unavailable BRYON LAWSON, DR REECE Consulting Unavailab shital CORRINE DO, NANDO Consulting Unavailable SUDARSHAN 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, AMI Hwang Consulting Unavailjair GIBSON PhD, MATTHEW Zamudio Consulting Unavailable Zuly LAWSON, Dr. Melo Primary Care Physician Safia Ruelas MD Attending Physician Unavail able Claudio CASH-CBret Attending Physician Jessenia LAWSON, Dr. Baig Attending Physician [phone] Kameron Caruso Primary Care Unavailable Oleghe OLS, [...] Unavailable Elderbrock, Kameron Primary Care Unavailable [place] BANK CREDIT CARD COLLECTION CLERK, Bret Attending Unavailable Oleghe OLS, Efewongbe Attending Unavailabl e Elderbrock, Kameron Primary Care Unavailable Elderbrock, Kameron Primary Care Unavailable Oleghe, Efewongbe Attending Unavailable Elderbrock, Kameron Primary Care Unavailable Mj Benavides Attending Unavailable Elderbrock, Kameron Referring Unavailable Elderbrock, Kameron Primary Care Unavailable Oleghe, Efewongbe Attending Unavailable [place] BANK CREDIT CARD COLLECTION CLERK, Bret Attending Unavailable Elder[place], Kameron Primary Care Unavailable [place] BANK CREDIT CARD COLLECTION CLERK, Bret Attending Unavailable Elderbrock, Kameron Primary Care Unavailable Oleghe, Efewongbe Attending Unavailable [place], Kameron Primary Care Unavailable [place] BANK CREDIT CARD COLLECTION CLERK, Bret Attending Unavailable [place], Kameron Primary Care Unavailable [place] BANK CREDIT CARD COLLECTION CLERK, Bret Attending Unavailable [place]bro[place], Kameron Primary Care Unavailable Elderbrock, Kameron Primary Care Unavailable [place] BANK CREDIT CARD COLLECTION CLERK, Bret Attending Unavailable Oleghe OLS, Efewongbe Attending [...] reactions to drug 6 Other (See Comments) [place], [place] (2 sources) Other Propensity to adverse reactions 6 Shortness Of Breath [place], [place] (20 sources) Benzocaine; Translations: [BENZOCAINE] Drug Allergy 6 Rash [facility] Work Phone: (20 sources) Cocaine; Translations: [COCAINE] Drug Allergy 9 Inverted T waves [facility] Work Phone: (20 sources) Sulfonamides (Antibiotic); Translations: [SULFA (SULFONAMIDE ANTIBIOTICS)] Propensity to adverse reactions 6 Intolerance [facility] Work Phone: (20 sources) Perfumes; Translations: [PERFUMES] Propensity to adverse reactions 6 Shortness of Breath [facility] Work Phone: (13 sources) Sulfonamides (Antibiotic) Allergy to substance 5 Unknown [facility] (15 sources) perfume; Translations: [perfume] Allergy to substance 5 Shortness of breath [facility] (1 source) Cocaine; Translations: [cocaine nasal] Drug Allergy [facility] (1 source) Codeine; Translations: [codeine] Drug Allergy Pharyngeal swelling (finding) [facility] (1 source) Sulfonamide; Translations: [sulfa drugs] Drug allergy [facility] (1 source) Benzocaine Drug Allergy [address] [facility] (1 source) Cocaine Drug Allergy 5 [facility] (1 source) Sulfonamides (Antibiotic) Drug allergy (disorder) 5 [facility] Medications Current Medications Medication [...] kidney disease, unspecified CKD stage, unspecified whether longterm insulin 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 Take 1 tablet by [facility] once daily atovaquone 250 mg / proguanil [...] Comment on above: Take 1 tablet by [facility] once daily. Start medication 2 [...] kidney disease, unspecified CKD stage, unspecified whether longterm insulin use (HCC) Take 1 tablet by [...] 08-15-2024 Start: 08-04-2024 End: 08-09-2024 triamcinolone acetonide 0.25333 mg/mg topical ointment (3 sources) Corticosteroid Start: [...] is greater than 200mg/dl, then notify house servant. [Order 2 End] [Order 3 Start] Name: [...] at 1301, Until Specified, Who to Notify: Winery Worker, For all Blood Glucose LESS THAN 80 mg/dl, notify Winery Worker after treatment per Hypoglycemia in Non- Adults [...] Coronary arteriosclerosis; Translations: [Atherosclerotic heart disease of [place] coronary artery without angina pectoris] Onset: 5 [...] aftercare (13 sources) 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; Translations: [termite treater (current) use of anticoagulants] 08-02-2024 Episodic Other [...] Onset: 08-15-2024 Episodic Other aftercare (1 source) termite treater (current) use of aspirin; Translations: [termite treater (current) use of aspirin] Onset: 08-15-2024 Episodic Other aftercare (1 source) termite treater (current) use of anticoagulants; Translations: [termite treater (current) use of anticoagulants] Onset: 08-15-2024 Episodic Other aftercare (1 source) termite treater (current) use of oral hypoglycemic drugs; Translations: [...] Auto (Unsp spec) [#/Vol] 2.89 10*3/uL 0.83-4.51 [facility] Anion gap in Serum or Plasma Ordered By: Safia Ruelas on 03-04-2025 Anion gap [Moles/Vol] 12 mmol/L 5-15 [facility] Automated lymphocyte count a s percentage of total leukocytesOrdered By: Safia Ruelas on 03-04-2025 Lymphocytes/100 WBC Auto (Unsp spec) 32.0 % 19- [facility] BUN/creatinine ratioOrdered By: Safia Ruelas on 03-04-2025 Urea nitrogen/Creatinine [Mass ratio] 28.8 mg/mg High 10- [facility] Basophil percentageOrdered B y: Safia Ruelas on 03-04-2025 Basophils/100 WBC (Bld) 0.7 % 0-[address] [facility] Carbon dioxide, total [Moles /volume] in Central venous bloodOrdered By: Safia Ruelas on 03-04-2025 CO2 [Moles/Vol] 25.6 mmol/L 21.0-32.0 [facility] Chloride assayOrdered By: Balbir Ruelas on 03-04-2025 Chloride [Moles/Vol] 104 mmol/L 98-108 [facility] Eosinophil percentageOrdered By: Safia Ruelas on 03-04-2025 Eosinophils/100 WBC (Bld) 2.1 % 0-5 [facility] Erythrocyte distribution wid th ratioOrdered By: Safia Ruelas on 03-04-2025 Erythrocyte distribution width (RBC) [Ratio] 14.5 % 11.6-14.6 [facility] Erythrocyte distribution wid th standard deviationOrdered By: Safia Ruelas on 03-04-2025 Erythrocyte distribution width (RBC) [Ratio] 50.6 fl High 35.1-43.9 [facility] Glomerular filtration rate ( GFR) estimation/1.73 sq m using serum, plasma, or whole bOrdered By: Safia Ruelas on 03-04-2025 GFR/1.73 sq M.predicted among non-blacks MDRD (S/P/Bld) [Vol rate/Area] 73 mL/min/{1.73_m2} >60 [facility] Hematocrit Auto (Bld) [Volum e fraction]Ordered By: Safia Ruelas on 03-04-2025 Hematocrit (Bld) [Volume fraction] 38.1 % 37-47 [facility] Hemoglobin measurementOrdere d By: Safia Ruelas on 03-04-2025 Hemoglobin (Bld) [Mass/Vol] 12.0 g/dL 12.0-15.0 [facility] Immature granulocytes/100 WB C Auto (Bld)Ordered By: Safia Ruelas on 03-04-2025 Immature granulocytes/100 WBC (Bld) 0.300 % 0.0-0.9 [facility] MCV (mean corpuscular volume ) determinationOrdered By: Safia Ruelas on 03-04-2025 MCV (RBC) [Entitic vol] 94.1 fL 81-[address] [facility] Mean corpuscular hemoglobin (MCH) determinationOrdered By: Safia Ruelas on 03-04-2025 MCH (RBC) [Entitic mass] 29.6 pg 27.0-32.0 [facility] Monocyte percentageOrdered B y: Safia Ruelas on 03-04-2025 Monocytes/100 WBC (Bld) 8.5 % 0-[address] [facility] Neutrophil percentageOrdered By: Safia Ruelas on 03-04-2025 Neutrophils/100 WBC (Bld) 56.4 % 47-70 [facility] Platelet countOrdered By: Balbir Ruelas on 03-04-2025 Platelets (Bld) [#/Vol] 246 10*3/uL 150-450 [facility] Potassium measurement (mass/ volume)Ordered By: Safia Ruelas on 03-04-2025 Potassium (Unsp spec) [Mass/Vol] 3.9 mmol/L 3.3-5.1 [facility] RBC Auto (Bld) [#/Vol]Ordere d By: Safia Ruelas on 03-04-2025 RBC (Bld) [#/Vol] 4.05 10*6/uL Low 4.2-5.[address] [facility] Serum creatinine measurement (mass/volume)Ordered By: Safia Ruelas on 03-04-2025 Creatinine [Mass/Vol] 0.82 mg/dL 0.70-1.20 [facility] Serum glucose measurement (m ass/volume)Ordered By: Safia Ruelas on 03-04-2025 Glucose [Mass/Vol] 157 mg/dL High 70-99 [facility] Serum or plasma calcium dayna urement (mass/volume)Ordered By: Safia Ruelas on 03-04-2025 Calcium [Mass/Vol] 9.4 mg/dL 7.6-11.0 [facility] Serum or plasma urea nitroge n measurement (mass/volume)Ordered By: Safia Ruelas on 03-04-2025 Urea nitrogen [Mass/Vol] 24 mg/dL High 4-19 [facility] Sodium levelOrdered By: Leonides Ruelas on 03-04-2025 Sodium [Moles/Vol] 142 mmol/L 133-145 [facility] White blood cell (WBC) count Ordered By: Safia Ruelas on 03-04-2025 WBC (Bld) [#/Vol] 9.0 10*3/uL 4.4-11.0 [facility] Absolute lymphocyte countOrd ered By: Safia Ruelas on 02-25-2025 Lymphocytes Auto (Unsp spec) [#/Vol] 3.32 10*3/uL 0.83-4.51 [facility] Anion gap in Serum or Plasma Ordered By: Safia Ruelas on 02-25-2025 Anion gap [Moles/Vol] 12 mmol/L 5-15 [facility] Automated lymphocyte count a s percentage of total leukocytesOrdered By: Safia Ruelas on 02-25-2025 Lymphocytes/100 WBC Auto (Unsp spec) 36.7 % 19- [facility] BUN/creatinine ratioOrdered By: Safia Ruelas on 02-25-2025 Urea nitrogen/Creatinine [Mass ratio] 20.5 mg/mg High 10- [facility] Basophil percentageOrdered B y: Safia Ruelas on 02-25-2025 Basophils/100 WBC (Bld) 0.6 % 0-1 [facility] Carbon dioxide, total [Moles /volume] in Central venous bloodOrdered By: Safia Ruelas on 02-25-2025 CO2 [Moles/Vol] 25.9 mmol/L 21.0-32.0 [facility] Chloride assayOrdered By: Balbir Ruelas on 02-25-2025 Chloride [Moles/Vol] 103 mmol/L 98-108 [facility] Eosinophil percentageOrdered By: sherry Ruelas on 02-25-2025 Eosinophils/100 WBC (Bld) 2.2 % 0-5 [facility] Erythrocyte distribution wid th ratioOrdered By: Safia Westonmelanie on 02-25-2025 Erythrocyte distribution width (RBC) [Ratio] 14.3 % 11.6-14.6 [facility] Erythrocyte distribution wid th standard deviationOrdered By: Safia Ruelas on 02-25-2025 Erythrocyte distribution width (RBC) [Ratio] 48.5 fl High 35.1-43.9 [facility] Glomerular filtration rate ( GFR) estimation/1.73 sq m using serum, plasma, or whole bOrdered By: Safia Cheobonimelanie on 02-25-2025 GFR/1.73 sq M.predicted among non-blacks MDRD (S/P/Bld) [Vol rate/Area] 75 mL/min/{1.73_m2} >60 [facility] Hematocrit Auto (Bld) [Volum e fraction]Ordered By: Safia Ruelas on 02-25-2025 Hematocrit (Bld) [Volume fraction] 39.0 % 37-47 [facility] Hemoglobin measurementOrdere d By: Safia Ruelas on 02-25-2025 Hemoglobin (Bld) [Mass/Vol] 12.3 g/dL 12.0-15.0 [facility] Immature granulocytes/100 WB C Auto (Bld)Ordered By: Safia Cheobonimelanie on 02-25-2025 Immature granulocytes/100 WBC (Bld) 0.400 % 0.0-0.9 [facility] MCV (mean corpuscular volume ) determinationOrdered By: Safia Cheobonimelanie on 02-25-2025 MCV (RBC) [Entitic vol] 92.4 fL 81-[address] [facility] Mean corpuscular hemoglobin (MCH) determinationOrdered By: Safia Ruelas on 02-25-2025 MCH (RBC) [Entitic mass] 29.1 pg 27.0-32.0 [facility] Monocyte percentageOrdered B y: Safia Ruelas on 02-25-2025 Monocytes/100 WBC (Bld) 7.7 % 0-[address] [facility] Neutrophil percentageOrdered By: Safia Ruelas on 02-25-2025 Neutrophils/100 WBC (Bld) 52.4 % 47-70 [facility] Platelet countOrdered By: Balbir Ruelas on 02-25-2025 Platelets (Bld) [#/Vol] 257 10*3/uL 150-450 [facility] Potassium measurement (mass/ volume)Ordered By: Safia Ruelas on 02-25-2025 Potassium (Unsp spec) [Mass/Vol] 3.5 mmol/L 3.3-5.1 [facility] RBC Auto (Bld) [#/Vol]Ordere d By: Safia Ruelas on 02-25-2025 RBC (Bld) [#/Vol] 4.22 10*6/uL 4.2-5.[address] [facility] Serum creatinine measurement (mass/volume)Ordered By: Safia Ruelas on 02-25-2025 Creatinine [Mass/Vol] 0.80 mg/dL 0.70-1.20 [facility] Serum glucose measurement (m ass/volume)Ordered By: Safia Ruelas on 02-25-2025 Glucose [Mass/Vol] 121 mg/dL High 70-99 [facility] Serum or plasma calcium dayna urement (mass/volume)Ordered By: Safia Ruelas on 02-25-2025 Calcium [Mass/Vol] 9.2 mg/dL 7.6-11.0 [facility] Serum or plasma urea nitroge n measurement (mass/volume)Ordered By: Safia Ruelas on 02-25-2025 Urea nitrogen [Mass/Vol] 16 mg/dL 4-19 [facility] Sodium levelOrdered By: Leonides jiménezradha Jessenia on 02-25-2025 Sodium [Moles/Vol] 140 mmol/L 133-145 [facility] TSH DL <= 0.005 mIU/L QnOrde red By: Safia Ruelas on 02-25-2025 TSH Qn 0.226 uIU/mL Low 0.300-4.200 [facility] White blood cell (WBC) count Ordered By: Safia Ruelas on 02-25-2025 WBC (Bld) [#/Vol] 9.0 10*3/uL 4.4-11.0 [facility] Absolute lymphocyte countOrd ered By: Safia Ruelas on 02-18-2025 Lymphocytes Auto (Unsp spec) [#/Vol] 1.78 10*3/uL 0.83-4.51 [facility] Anion gap in Serum or Plasma Ordered By: Safia Ruelas on 02-18-2025 Anion gap [Moles/Vol] 13 mmol/L 5-15 [facility] Automated lymphocyte count a s percentage of total leukocytesOrdered By: Safia Ruelas on 02-18-2025 Lymphocytes/100 WBC Auto (Unsp spec) 22.5 % 19-41 [facility] BUN/creatinine ratioOrdered By: Safia Ruelas on 02-18-2025 Urea nitrogen/Creatinine [Mass ratio] 23.7 mg/mg High 10-20 [facility] Basophil percentageOrdered B y: Safia Ruelas on 02-18-2025 Basophils/100 WBC (Bld) 0.4 % 0-[address] [facility] Carbon dioxide, total [Moles /volume] in Central venous bloodOrdered By: Safia Ruelas on 02-18-2025 CO2 [Moles/Vol] 23.2 mmol/L 21.0-32.0 [facility] Chloride assayOrdered By: Balbir Ruelas on 02-18-2025 Chloride [Moles/Vol] 102 mmol/L 98-108 [facility] Eosinophil percentageOrdered By: Safia Ruelas on 02-18-2025 Eosinophils/100 WBC (Bld) 0.4 % 0-5 [facility] Erythrocyte distribution wid th ratioOrdered By: Safia Ruelas on 02-18-2025 Erythrocyte distribution width (RBC) [Ratio] 14.3 % 11.6-14.6 [facility] Erythrocyte distribution wid th standard deviationOrdered By: Safia Ruelas on 02-18-2025 Erythrocyte distribution width (RBC) [Ratio] 48.0 fl High 35.1-43.9 [facility] Glomerular filtration rate ( GFR) estimation/1.73 sq m using serum, plasma, or whole bOrdered By: Safia Ruelas on 02-18-2025 GFR/1.73 sq M.predicted among non-blacks MDRD (S/P/Bld) [Vol rate/Area] 76 mL/min/{1.73_m2} >60 [facility] Hematocrit Auto (Bld) [Volum e fraction]Ordered By: Safia Ruelas on 02-18-2025 Hematocrit (Bld) [Volume fraction] 39.0 % 37-47 [facility] Hemoglobin measurementOrdere d By: Safia Ruelas on 02-18-2025 Hemoglobin (Bld) [Mass/Vol] 12.5 g/dL 12.0-15.0 [facility] Immature granulocytes/100 WB C Auto (Bld)Ordered By: Safia Ruelas on 02-18-2025 Immature granulocytes/100 WBC (Bld) 0.300 % 0.0-0.9 [facility] MCV (mean corpuscular volume ) determinationOrdered By: Safia Ruelas on 02-18-2025 MCV (RBC) [Entitic vol] 92.2 fL 81-[address] [facility] Mean corpuscular hemoglobin (MCH) determinationOrdered By: Safia Ruelas on 02-18-2025 MCH (RBC) [Entitic mass] 29.6 pg 27.0-32.0 [facility] Monocyte percentageOrdered B y: Safia Ruelas on 02-18-2025 Monocytes/100 WBC (Bld) 4.8 % 0-[address] [facility] Neutrophil percentageOrdered By: Safia Ruelas on 02-18-2025 Neutrophils/100 WBC (Bld) 71.6 % High 47-70 [facility] Platelet countOrdered By: Balbir Ruelas on 02-18-2025 Platelets (Bld) [#/Vol] 263 10*3/uL 150-450 [facility] Potassium measurement (mass/ volume)Ordered By: Safia Ruelas on 02-18-2025 Potassium (Unsp spec) [Mass/Vol] 4.1 mmol/L 3.3-5.1 [facility] RBC Auto (Bld) [#/Vol]Ordere d By: Safia Ruelas on 02-18-2025 RBC (Bld) [#/Vol] 4.23 10*6/uL 4.2-5.[address] [facility] Serum creatinine measurement (mass/volume)Ordered By: Safia Ruelas on 02-18-2025 Creatinine [Mass/Vol] 0.79 mg/dL 0.70-1.20 [facility] Serum glucose measurement (m ass/volume)Ordered By: Safia Ruelas on 02-18-2025 Glucose [Mass/Vol] 165 mg/dL High 70-99 [facility] Serum or plasma calcium dayna urement (mass/volume)Ordered By: Safia Ruelas on 02-18-2025 Calcium [Mass/Vol] 9.2 mg/dL 7.6-11.0 [facility] Serum or plasma urea nitroge n measurement (mass/volume)Ordered By: Safia Ruelas on 02-18-2025 Urea nitrogen [Mass/Vol] 19 mg/dL 4-19 [facility] Sodium levelOrdered By: Leonides Ruelas on 02-18-2025 Sodium [Moles/Vol] 138 mmol/L 133-145 [facility] White blood cell (WBC) count Ordered By: Balbirjean mariejosé antonio Cheoquyen on 02-18-2025 WBC (Bld) [#/Vol] 7.9 10*3/uL 4.4-11.0 [facility] Absolute lymphocyte countOrd ered By: Safia Ruelas on 02-11-2025 Lymphocytes Auto (Unsp spec) [#/Vol] 2.71 10*3/uL 0.83-4.51 [facility] Anion gap in Serum or Plasma Ordered By: Balbirjean mariejosé antonio Cheobonimelanie on 02-11-2025 Anion gap [Moles/Vol] 14 mmol/L 5-15 [facility] Automated lymphocyte count a s percentage of total leukocytesOrdered By: Safia Cheoquyen on 02-11-2025 Lymphocytes/100 WBC Auto (Unsp spec) 36.1 % 19-41 [facility] BUN/creatinine ratioOrdered By: Balbirjean mariejosé antonio Cheoquyen on 02-11-2025 Urea nitrogen/Creatinine [Mass ratio] 23.1 mg/mg High 10-20 [facility] Basophil percentageOrdered B y: Safia Ruelas on 02-11-2025 Basophils/100 WBC (Bld) 0.7 % 0-[address] [facility] Carbon dioxide, total [Moles /volume] in Central venous bloodOrdered By: Safia Cheobonimelanie on 02-11-2025 CO2 [Moles/Vol] 21.6 mmol/L 21.0-32.0 [facility] Chloride assayOrdered By: Balbir randallskye Griderbonimelanie on 02-11-2025 Chloride [Moles/Vol] 103 mmol/L 98-108 [facility] Eosinophil percentageOrdered By: Safia Ruelas on 02-11-2025 Eosinophils/100 WBC (Bld) 2.0 % 0-5 [facility] Erythrocyte distribution wid th ratioOrdered By: jean mariekekahaskye Ruelas on 02-11-2025 Erythrocyte distribution width (RBC) [Ratio] 14.4 % 11.6-14.6 [facility] Erythrocyte distribution wid th standard deviationOrdered By: jean mariekekahaskye Ruelas on 02-11-2025 Erythrocyte distribution width (RBC) [Ratio] 47.5 fl High 35.1-43.9 [facility] Glomerular filtration rate ( GFR) estimation/1.73 sq m using serum, plasma, or whole bOrdered By: sherry Ruelas on 02-11-2025 GFR/1.73 sq M.predicted among non-blacks MDRD (S/P/Bld) [Vol rate/Area] 72 mL/min/{1.73_m2} >60 [facility] Hematocrit Auto (Bld) [Volum e fraction]Ordered By: Safia Ruelas on 02-11-2025 Hematocrit (Bld) [Volume fraction] 37.4 % 37-47 [facility] Hemoglobin measurementOrdere d By: jean mariekekahaskye Ruelas on 02-11-2025 Hemoglobin (Bld) [Mass/Vol] 12.4 g/dL 12.0-15.0 [facility] Immature granulocytes/100 WB C Auto (Bld)Ordered By: Safia Ruelas on 02-11-2025 Immature granulocytes/100 WBC (Bld) 0.400 % 0.0-0.9 [facility] MCV (mean corpuscular volume ) determinationOrdered By: Safia Ruelas on 02-11-2025 MCV (RBC) [Entitic vol] 90.3 fL 81-[address] [facility] Mean corpuscular hemoglobin (MCH) determinationOrdered By: [facility] R[facility] on 02-11-2025 MCH (RBC) [Entitic mass] 30.0 pg 27.0-32.0 [facility] Monocyte percentageOrdered B y: Safia Ruelas on 02-11-2025 Monocytes/100 WBC (Bld) 6.8 % 0-10 [facility] Neutrophil percentageOrdered By: Safia Ruelas on 02-11-2025 Neutrophils/100 WBC (Bld) 54.0 % 47-70 [facility] Platelet countOrdered By: Balbir Ruelas on 02-11-2025 Platelets (Bld) [#/Vol] 260 10*3/uL 150-450 [facility] Potassium measurement (mass/ volume)Ordered By: Safia Ruelas on 02-11-2025 Potassium (Unsp spec) [Mass/Vol] 3.6 mmol/L 3.3-5.1 [facility] RBC Auto (Bld) [#/Vol]Ordere d By: Safia Ruelas on 02-11-2025 RBC (Bld) [#/Vol] 4.14 10*6/uL Low 4.2-5.[address] [facility] Serum creatinine measurement (mass/volume)Ordered By: Safia Ruelas on 02-11-2025 Creatinine [Mass/Vol] 0.83 mg/dL 0.70-1.20 [facility] Serum glucose measurement (m ass/volume)Ordered By: Safia Ruelas on 02-11-2025 Glucose [Mass/Vol] 110 mg/dL High 70-99 [facility] Serum or plasma calcium dayna urement (mass/volume)Ordered By: Safia Ruelas on 02-11-2025 Calcium [Mass/Vol] 9.1 mg/dL 7.6-11.0 [facility] Serum or plasma urea nitroge n measurement (mass/volume)Ordered By: Safia Ruelas on 02-11-2025 Urea nitrogen [Mass/Vol] 19 mg/dL 4-19 [facility] Sodium levelOrdered By: Leonides Ruelas on 02-11-2025 Sodium [Moles/Vol] 139 mmol/L 133-145 [facility] White blood cell (WBC) count Ordered By: Safia Ruelas on 02-11-2025 WBC (Bld) [#/Vol] 7.5 10*3/uL 4.4-11.0 [facility] Absolute lymphocyte countOrd ered By: Safia Ruelas on 02-04-2025 Lymphocytes Auto (Unsp spec) [#/Vol] 3.03 10*3/uL 0.83-4.51 [facility] [facility] Anion gap in Serum or Plasma Ordered By: Safia Ruelas on 02-04-2025 Anion gap [Moles/Vol] 12 mmol/L 5-15 [facility] Automated lymphocyte count a s percentage of total leukocytesOrdered By: Safia Ruelas on 02-04-2025 Lymphocytes/100 WBC Auto (Unsp spec) 36.1 % 19-41 [facility] BUN/creatinine ratioOrdered By: Safia Ruelas on 02-04-2025 Urea nitrogen/Creatinine [Mass ratio] 21.0 mg/mg High 10-20 [facility] Basophil percentageOrdered B y: Safia Ruelas on 02-04-2025 Basophils/100 WBC (Bld) 0.7 % 0-1 [facility] Carbon dioxide, total [Moles /volume] in Central venous bloodOrdered By: Safia Ruelas on 02-04-2025 CO2 [Moles/Vol] 23.5 mmol/L 21.0-32.0 [facility] Chloride assayOrdered By: Balbir Ruelas on 02-04-2025 Chloride [Moles/Vol] 103 mmol/L 98-108 [facility] Eosinophil percentageOrdered By: Safia Ruelas on 02-04-2025 Eosinophils/100 WBC (Bld) 2.3 % 0-5 [facility] Erythrocyte distribution wid th ratioOrdered By: Safia Ruelas on 02-04-2025 Erythrocyte distribution width (RBC) [Ratio] 14.5 % 11.6-14.6 [facility] Erythrocyte distribution wid th standard deviationOrdered By: sherry Ruelas on 02-04-2025 Erythrocyte distribution width (RBC) [Ratio] 47.8 fl High 35.1-43.9 [facility] Glomerular filtration rate ( GFR) estimation/1.73 sq m using serum, plasma, or whole bOrdered By: Safia Ruelas on 02-04-2025 GFR/1.73 sq M.predicted among non-blacks MDRD (S/P/Bld) [Vol rate/Area] 85 mL/min/{1.73_m2} >60 [facility] Hematocrit Auto (Bld) [Volum e fraction]Ordered By: Safia Westonmelanie on 02-04-2025 Hematocrit (Bld) [Volume fraction] 38.3 % 37-47 [facility] Hemoglobin measurementOrdere d By: Safia Ruelas on 02-04-2025 Hemoglobin (Bld) [Mass/Vol] 12.4 g/dL 12.0-15.0 [facility] Immature granulocytes/100 WB C Auto (Bld)Ordered By: jean mariejosé antonio Cheoquyen on 02-04-2025 Immature granulocytes/100 WBC (Bld) 0.400 % 0.0-0.9 [facility] MCV (mean corpuscular volume ) determinationOrdered By: Balbirjean mariekekahaskye Cheobonimelanie on 02-04-2025 MCV (RBC) [Entitic vol] 90.3 fL 81-[address] [facility] Mean corpuscular hemoglobin (MCH) determinationOrdered By: sherry Ruelas on 02-04-2025 MCH (RBC) [Entitic mass] 29.2 pg 27.0-32.0 [facility] Monocyte percentageOrdered B y: Safia Ruelas on 02-04-2025 Monocytes/100 WBC (Bld) 7.9 % 0-[address] [facility] Neutrophil percentageOrdered By: jean mariekekahaskye Ruelas on 02-04-2025 Neutrophils/100 WBC (Bld) 52.6 % 47-70 [facility] Platelet countOrdered By: Balbir Ruelas on 02-04-2025 Platelets (Bld) [#/Vol] 278 10*3/uL 150-450 [facility] Potassium measurement (mass/ volume)Ordered By: Safia Ruelas on 02-04-2025 Potassium (Unsp spec) [Mass/Vol] 3.4 mmol/L 3.3-5.1 [facility] RBC Auto (Bld) [#/Vol]Ordere d By: Safia Ruelas on 02-04-2025 RBC (Bld) [#/Vol] 4.24 10*6/uL 4.2-5.[address] [facility] Serum creatinine measurement (mass/volume)Ordered By: Safia Ruelas on 02-04-2025 Creatinine [Mass/Vol] 0.71 mg/dL 0.70-1.20 [facility] Serum glucose measurement (m ass/volume)Ordered By: Safia Griderbonimelanie on 02-04-2025 Glucose [Mass/Vol] 141 mg/dL High 70-99 [facility] Serum or plasma calcium dayna urement (mass/volume)Ordered By: Safia Ruelas on 02-04-2025 Calcium [Mass/Vol] 9.0 mg/dL 7.6-11.0 [facility] Serum or plasma urea nitroge n measurement (mass/volume)Ordered By: Safia Griderbonimelanie on 02-04-2025 Urea nitrogen [Mass/Vol] 15 mg/dL 4-19 [facility] Sodium levelOrdered By: Leonides josé antonio Jessenia on 02-04-2025 Sodium [Moles/Vol] 139 mmol/L 133-145 [facility] White blood cell (WBC) count Ordered By: Safia Griderbonimelanie on 02-04-2025 WBC (Bld) [#/Vol] 8.4 10*3/uL 4.4-11.0 [facility] Absolute lymphocyte countOrd ered By: Safia Ruelas on 01-28-2025 Lymphocytes Auto (Unsp spec) [#/Vol] 3.03 10*3/uL 0.83-4.51 [facility] Anion gap in Serum or Plasma Ordered By: Safia Ruelas on 01-28-2025 Anion gap [Moles/Vol] 12 mmol/L 5-15 [facility] Automated lymphocyte count a s percentage of total leukocytesOrdered By: Safia Ruelas on 01-28-2025 Lymphocytes/100 WBC Auto (Unsp spec) 36.0 % - [facility] BUN/creatinine ratioOrdered By: Safia Griderbonimelanie on 01-28-2025 Urea nitrogen/Creatinine [Mass ratio] 20.0 mg/mg 10-20 [facility] Basophil percentageOrdered B y: Safia Ruelas on 01-28-2025 Basophils/100 WBC (Bld) 0.6 % 0-[address] [facility] Carbon dioxide, total [Moles /volume] in Central venous bloodOrdered By: Safia Ruelas on 01-28-2025 CO2 [Moles/Vol] 24.7 mmol/L 21.0-32.0 [facility] Chloride assayOrdered By: Balbir randallskye Ruelas on 01-28-2025 Chloride [Moles/Vol] 103 mmol/L 98-108 [facility] Eosinophil percentageOrdered By: sherry Ruelas on 01-28-2025 Eosinophils/100 WBC (Bld) 1.8 % 0-5 [facility] Erythrocyte distribution wid th ratioOrdered By: jean mariekekahaskye Ruelas on 01-28-2025 Erythrocyte distribution width (RBC) [Ratio] 14.6 % 11.6-14.6 [facility] Erythrocyte distribution wid th standard deviationOrdered By: jean mariekekahaskye Ruelas on 01-28-2025 Erythrocyte distribution width (RBC) [Ratio] 48.6 fl High 35.1-43.9 [facility] Glomerular filtration rate ( GFR) estimation/1.73 sq m using serum, plasma, or whole bOrdered By: Safia Ruelas on 01-28-2025 GFR/1.73 sq M.predicted among non-blacks MDRD (S/P/Bld) [Vol rate/Area] 88 mL/min/{1.73_m2} >60 [facility] Hematocrit Auto (Bld) [Volum e fraction]Ordered By: Safia Ruelas on 01-28-2025 Hematocrit (Bld) [Volume fraction] 38.1 % 37-47 [facility] Hemoglobin measurementOrdere d By: sherry Ruelas on 01-28-2025 Hemoglobin (Bld) [Mass/Vol] 12.3 g/dL 12.0-15.0 [facility] Immature granulocytes/100 WB C Auto (Bld)Ordered By: Safia Ruelas on 01-28-2025 Immature granulocytes/100 WBC (Bld) 0.400 % 0.0-0.9 [facility] MCV (mean corpuscular volume ) determinationOrdered By: Safia Ruelas on 01-28-2025 MCV (RBC) [Entitic vol] 90.7 fL 81-[address] [facility] Mean corpuscular hemoglobin (MCH) determinationOrdered By: Safia Ruelas on 01-28-2025 MCH (RBC) [Entitic mass] 29.3 pg 27.0-32.0 [facility] Monocyte percentageOrdered B y: Safia Ruelas on 01-28-2025 Monocytes/100 WBC (Bld) 8.2 % 0-[address] [facility] Neutrophil percentageOrdered By: Safia Ruelas on 01-28-2025 Neutrophils/100 WBC (Bld) 53.0 % 47-70 [facility] Platelet countOrdered By: Balbir Ruelas on 01-28-2025 Platelets (Bld) [#/Vol] 261 10*3/uL 150-450 [facility] Potassium measurement (mass/ volume)Ordered By: Safia Ruelas on 01-28-2025 Potassium (Unsp spec) [Mass/Vol] 3.4 mmol/L 3.3-5.1 [facility] RBC Auto (Bld) [#/Vol]Ordere d By: Safia Ruelas on 01-28-2025 RBC (Bld) [#/Vol] 4.20 10*6/uL 4.2-5.[address] [facility] Serum creatinine measurement (mass/volume)Ordered By: Safia Ruelas on 01-28-2025 Creatinine [Mass/Vol] 0.66 mg/dL Low 0.70-1.20 [facility] Serum glucose measurement (m ass/volume)Ordered By: Safia Ruelas on 01-28-2025 Glucose [Mass/Vol] 130 mg/dL High 70-99 [facility] Serum or plasma calcium dayna urement (mass/volume)Ordered By: Safia Ruelas on 01-28-2025 Calcium [Mass/Vol] 9.0 mg/dL 7.6-11.0 [facility] Serum or plasma urea nitroge n measurement (mass/volume)Ordered By: Safia Ruelas on 01-28-2025 Urea nitrogen [Mass/Vol] 13 mg/dL 4-19 [facility] Sodium levelOrdered By: Leonides josé antonio Jessenia on 01-28-2025 Sodium [Moles/Vol] 140 mmol/L 133-145 [facility] White blood cell (WBC) count Ordered By: Safia Ruelas on 01-28-2025 WBC (Bld) [#/Vol] 8.4 10*3/uL 4.4-11.0 [facility] Absolute lymphocyte countOrd ered By: Safia Ruelas on 01-21-2025 Lymphocytes Auto (Unsp spec) [#/Vol] 3.26 10*3/uL 0.83-4.51 [facility] Anion gap in Serum or Plasma Ordered By: Safia Ruelas on 01-21-2025 Anion gap [Moles/Vol] 13 mmol/L 5-15 [facility] Automated lymphocyte count a s percentage of total leukocytesOrdered By: Safia Ruelas on 01-21-2025 Lymphocytes/100 WBC Auto (Unsp spec) 38.3 % 19-41 [facility] BUN/creatinine ratioOrdered By: Safia Ruelas on 01-21-2025 Urea nitrogen/Creatinine [Mass ratio] 20.0 mg/mg 10-20 [facility] Basophil percentageOrdered B y: Safia Ruelas on 01-21-2025 Basophils/100 WBC (Bld) 0.6 % 0-[address] [facility] Carbon dioxide, total [Moles /volume] in Central venous bloodOrdered By: Safia Ruelas on 01-21-2025 CO2 [Moles/Vol] 22.3 mmol/L 21.0-32.0 [facility] Chloride assayOrdered By: Balbir Ruelas on 01-21-2025 Chloride [Moles/Vol] 102 mmol/L 98-108 [facility] Eosinophil percentageOrdered By: Safia Ruelas on 01-21-2025 Eosinophils/100 WBC (Bld) 2.1 % 0-5 [facility] Erythrocyte distribution wid th ratioOrdered By: Safia Ruelas on 01-21-2025 Erythrocyte distribution width (RBC) [Ratio] 14.4 % 11.6-14.6 [facility] Erythrocyte distribution wid th standard deviationOrdered By: Safia Ruelas on 01-21-2025 Erythrocyte distribution width (RBC) [Ratio] 47.1 fl High 35.1-43.9 [facility] Glomerular filtration rate ( GFR) estimation/1.73 sq m using serum, plasma, or whole bOrdered By: Safia Ruelas on 01-21-2025 GFR/1.73 sq M.predicted among non-blacks MDRD (S/P/Bld) [Vol rate/Area] 86 mL/min/{1.73_m2} >60 [facility] Hematocrit Auto (Bld) [Volum e fraction]Ordered By: Safia Ruelas on 01-21-2025 Hematocrit (Bld) [Volume fraction] 37.8 % 37-47 [facility] Hemoglobin measurementOrdere d By: Safia Ruelas on 01-21-2025 Hemoglobin (Bld) [Mass/Vol] 12.6 g/dL 12.0-15.0 [facility] Immature granulocytes/100 WB C Auto (Bld)Ordered By: Safia Ruelas 01-21-2025 Immature granulocytes/100 WBC (Bld) 0.400 % 0.0-0.9 [facility] MCV (mean corpuscular volume ) determinationOrdered By: Safia Ruelas 01-21-2025 MCV (RBC) [Entitic vol] 89.6 fL 81-[address] [facility] Mean corpuscular hemoglobin (MCH) determinationOrdered By: Safia Ruelas 01-21-2025 MCH (RBC) [Entitic mass] 29.9 pg 27.0-32.0 [facility] Monocyte percentageOrdered B y: Safia Ruelas on 01-21-2025 Monocytes/100 WBC (Bld) 6.9 % 0-[address] [facility] Neutrophil percentageOrdered By: Safia Ruelas 01-21-2025 Neutrophils/100 WBC (Bld) 51.7 % 47-70 [facility] Platelet countOrdered By: Balbir Ruelas on 01-21-2025 Platelets (Bld) [#/Vol] 280 10*3/uL 150-450 [facility] Potassium measurement (mass/ volume)Ordered By: aSfia Ruelas on 01-21-2025 Potassium (Unsp spec) [Mass/Vol] 3.6 mmol/L 3.3-5.1 [facility] RBC Auto (Bld) [#/Vol]Ordere d By: Safia Ruelas on 01-21-2025 RBC (Bld) [#/Vol] 4.22 10*6/uL 4.2-5.[address] [facility] Serum creatinine measurement (mass/volume)Ordered By: Safia Ruelas on 01-21-2025 Creatinine [Mass/Vol] 0.71 mg/dL 0.70-1.20 [facility] Serum glucose measurement (m ass/volume)Ordered By: Safia Ruelas on 01-21-2025 Glucose [Mass/Vol] 126 mg/dL High 70-99 [facility] Serum or plasma calcium dayna urement (mass/volume)Ordered By: Safia Ruelas on 01-21-2025 Calcium [Mass/Vol] 9.0 mg/dL 7.6-11.0 [facility] Serum or plasma urea nitroge n measurement (mass/volume)Ordered By: Safia Ruelas on 01-21-2025 Urea nitrogen [Mass/Vol] 14 mg/dL 4-19 [facility] Sodium levelOrdered By: Leonides jiméneztadmelanie Ruelas on 01-21-2025 Sodium [Moles/Vol] 137 mmol/L 133-145 [facility] White blood cell (WBC) count Ordered By: Safia Ruelas on 01-21-2025 WBC (Bld) [#/Vol] 8.5 10*3/uL 4.4-11.0 [facility] Absolute lymphocyte countOrd ered By: Safia Ruelas on 01-14-2025 Lymphocytes Auto (Unsp spec) [#/Vol] 2.54 10*3/uL 0.83-4.51 [facility] Anion gap in Serum or Plasma Ordered By: Safia Ruelas on 01-14-2025 Anion gap [Moles/Vol] 13 mmol/L 5-15 [facility] Automated lymphocyte count a s percentage of total leukocytesOrdered By: Safia Ruelas on 01-14-2025 Lymphocytes/100 WBC Auto (Unsp spec) 30.6 % 19-41 [facility] BUN/creatinine ratioOrdered By: Safia Ruelas on 01-14-2025 Urea nitrogen/Creatinine [Mass ratio] 16.0 mg/mg 10-20 [facility] Basophil percentageOrdered B y: Safia Ruelas on 01-14-2025 Basophils/100 WBC (Bld) 0.6 % 0-1 [facility] Carbon dioxide, total [Moles /volume] in Central venous bloodOrdered By: Safia Ruelas on 01-14-2025 CO2 [Moles/Vol] 22.8 mmol/L 21.0-32.0 [facility] Chloride assayOrdered By: Balbir Ruelas on 01-14-2025 Chloride [Moles/Vol] 104 mmol/L 98-108 [facility] Eosinophil percentageOrdered By: Safia Ruelas on 01-14-2025 Eosinophils/100 WBC (Bld) 2.2 % 0-5 [facility] Erythrocyte distribution wid th ratioOrdered By: Safia Ruelas on 01-14-2025 Erythrocyte distribution width (RBC) [Ratio] 14.6 % 11.6-14.6 [facility] Erythrocyte distribution wid th standard deviationOrdered By: Safia Ruelas on 01-14-2025 Erythrocyte distribution width (RBC) [Ratio] 48.7 fl High 35.1-43.9 [facility] Glomerular filtration rate ( GFR) estimation/1.73 sq m using serum, plasma, or whole bOrdered By: Safia Ruelas on 01-14-2025 GFR/1.73 sq M.predicted among non-blacks MDRD (S/P/Bld) [Vol rate/Area] 84 mL/min/{1.73_m2} >60 [facility] Hematocrit Auto (Bld) [Volum e fraction]Ordered By: Safia Ruelas on 01-14-2025 Hematocrit (Bld) [Volume fraction] 37.6 % 37-47 [facility] Hemoglobin measurementOrdere d By: Balbirjean mariejosé antonio Cheobonimelanie on 01-14-2025 Hemoglobin (Bld) [Mass/Vol] 12.1 g/dL 12.0-15.0 [facility] Immature granulocytes/100 WB C Auto (Bld)Ordered By: Safia Ruelas on 01-14-2025 Immature granulocytes/100 WBC (Bld) 0.500 % 0.0-0.9 [facility] MCV (mean corpuscular volume ) determinationOrdered By: Safia Ruelas on 01-14-2025 MCV (RBC) [Entitic vol] 90.8 fL 81-[address] [facility] Mean corpuscular hemoglobin (MCH) determinationOrdered By: jean mariekekahaskye Ruelas on 01-14-2025 MCH (RBC) [Entitic mass] 29.2 pg 27.0-32.0 [facility] Monocyte percentageOrdered B y: Safia Ruelas on 01-14-2025 Monocytes/100 WBC (Bld) 7.8 % 0-[address] [facility] Neutrophil percentageOrdered By: jean mariekekahaskye Ruelas on 01-14-2025 Neutrophils/100 WBC (Bld) 58.3 % 47-70 [facility] Platelet countOrdered By: Balbir randallskye Ruelsa on 01-14-2025 Platelets (Bld) [#/Vol] 284 10*3/uL 150-450 [facility] Potassium measurement (mass/ volume)Ordered By: Safia Ruelas on 01-14-2025 Potassium (Unsp spec) [Mass/Vol] 3.5 mmol/L 3.3-5.1 [facility] RBC Auto (Bld) [#/Vol]Ordere d By: Safia Ruelas on 01-14-2025 RBC (Bld) [#/Vol] 4.14 10*6/uL Low 4.2-5.[address] [facility] Serum creatinine measurement (mass/volume)Ordered By: Safia Ruelas on 01-14-2025 Creatinine [Mass/Vol] 0.73 mg/dL 0.70-1.20 [facility] Serum glucose measurement (m ass/volume)Ordered By: Safia Ruelas on 01-14-2025 Glucose [Mass/Vol] 137 mg/dL High 70-99 [facility] Serum or plasma calcium dayna urement (mass/volume)Ordered By: Safia Ruelas on 01-14-2025 Calcium [Mass/Vol] 8.8 mg/dL 7.6-11.0 [facility] Serum or plasma urea nitroge n measurement (mass/volume)Ordered By: Safia Ruelas on 01-14-2025 Urea nitrogen [Mass/Vol] 12 mg/dL 4-19 [facility] Sodium levelOrdered By: Leonides jiménezradha Jessenia on 01-14-2025 Sodium [Moles/Vol] 139 mmol/L 133-145 [facility] TSH DL <= 0.005 mIU/L QnOrde red By: Safia Ruelas on 01-14-2025 TSH Qn 1.730 uIU/mL 0.300-4.200 [facility] White blood cell (WBC) count Ordered By: Safia Ruelas on 01-14-2025 WBC (Bld) [#/Vol] 8.3 10*3/uL 4.4-11.0 [facility] Absolute lymphocyte countOrd ered By: Safia Ruelas on 01-07-2025 Lymphocytes Auto (Unsp spec) [#/Vol] 2.90 10*3/uL 0.83-4.51 [facility] Anion gap in Serum or Plasma Ordered By: Safia Ruelas on 01-07-2025 Anion gap [Moles/Vol] 12 mmol/L 5-15 [facility] Automated lymphocyte count a s percentage of total leukocytesOrdered By: Safia Ruelas on 01-07-2025 Lymphocytes/100 WBC Auto (Unsp spec) 36.3 % 19-41 [facility] BUN/creatinine ratioOrdered By: Safia Ruelas on 01-07-2025 Urea nitrogen/Creatinine [Mass ratio] 15.4 mg/mg 10-20 [facility] Basophil percentageOrdered B y: Safia Ruelas on 01-07-2025 Basophils/100 WBC (Bld) 0.6 % 0-[address] [facility] Carbon dioxide, total [Moles /volume] in Central venous bloodOrdered By: Safia Ruelas on 01-07-2025 CO2 [Moles/Vol] 23.2 mmol/L 21.0-32.0 [facility] Chloride assayOrdered By: Balbir jean mariejosé antonio Ruelas on 01-07-2025 Chloride [Moles/Vol] 104 mmol/L 98-108 [facility] Eosinophil percentageOrdered By: jean mariekekahaskye Griderbonimelanie on 01-07-2025 Eosinophils/100 WBC (Bld) 2.3 % 0-5 [facility] Erythrocyte distribution wid th ratioOrdered By: jean mariekekahaskye Ruelas on 01-07-2025 Erythrocyte distribution width (RBC) [Ratio] 14.6 % 11.6-14.6 [facility] Erythrocyte distribution wid th standard deviationOrdered By: Leonideskekahaskye Ruelas on 01-07-2025 Erythrocyte distribution width (RBC) [Ratio] 48.5 fl High 35.1-43.9 [facility] Glomerular filtration rate ( GFR) estimation/1.73 sq m using serum, plasma, or whole bOrdered By: Safia Ruelas on 01-07-2025 GFR/1.73 sq M.predicted among non-blacks MDRD (S/P/Bld) [Vol rate/Area] 86 mL/min/{1.73_m2} >60 [facility] Hematocrit Auto (Bld) [Volum e fraction]Ordered By: Safia Ruelas on 01-07-2025 Hematocrit (Bld) [Volume fraction] 36.6 % Low 37-47 [facility] Hemoglobin measurementOrdere d By: Safia Ruelas on 01-07-2025 Hemoglobin (Bld) [Mass/Vol] 11.9 g/dL Low 12.0-15.0 [facility] Immature granulocytes/100 WB C Auto (Bld)Ordered By: Safia Ruelas on 01-07-2025 Immature granulocytes/100 WBC (Bld) 0.300 % 0.0-0.9 [facility] MCV (mean corpuscular volume ) determinationOrdered By: Balbirjean mariedesireeskye Griderbonimelanie on 01-07-2025 MCV (RBC) [Entitic vol] 90.6 fL 81-[address] [facility] Mean corpuscular hemoglobin (MCH) determinationOrdered By: Safia Cheoquyen on 01-07-2025 MCH (RBC) [Entitic mass] 29.5 pg 27.0-32.0 [facility] Monocyte percentageOrdered B y: [place] Griderbonimelanie on 01-07-2025 Monocytes/100 WBC (Bld) 7.9 % 0-[address] [facility] Neutrophil percentageOrdered By: Safia Cheoquyen on 01-07-2025 Neutrophils/100 WBC (Bld) 52.6 % 47-70 [facility] Platelet countOrdered By: Balbir sherry Cheoquyen on 01-07-2025 Platelets (Bld) [#/Vol] 263 10*3/uL 150-450 [facility] Potassium measurement (mass/ volume)Ordered By: Safia Griderbonimelanie on 01-07-2025 Potassium (Unsp spec) [Mass/Vol] 3.5 mmol/L 3.3-5.1 [facility] RBC Auto (Bld) [#/Vol]Ordere d By: Balbirjean mariejosé antonio Cheoquyen on 01-07-2025 RBC (Bld) [#/Vol] 4.04 10*6/uL Low 4.2-5.[address] [facility] Serum creatinine measurement (mass/volume)Ordered By: Safia Ruelas on 01-07-2025 Creatinine [Mass/Vol] 0.71 mg/dL 0.70-1.20 [facility] Serum glucose measurement (m ass/volume)Ordered By: Safia Ruelas on 01-07-2025 Glucose [Mass/Vol] 139 mg/dL High 70-99 [facility] Serum or plasma calcium dayna urement (mass/volume)Ordered By: Safia Ruelas on 01-07-2025 Calcium [Mass/Vol] 8.5 mg/dL 7.6-11.0 [facility] Serum or plasma urea nitroge n measurement (mass/volume)Ordered By: Balbirjean mariedesireeskye Griderbonimelanie on 01-07-2025 Urea nitrogen [Mass/Vol] 11 mg/dL 4- [facility] Sodium levelOrdered By: Leonides Ruelas on 01-07-2025 Sodium [Moles/Vol] 139 mmol/L 133-145 [facility] White blood cell (WBC) count Ordered By: Balbirjean mariejosé antonio Cheoquyen on 01-07-2025 WBC (Bld) [#/Vol] 8.0 10*3/uL 4.4-11.0 [facility] Absolute lymphocyte countOrd ered By: Balbirjean mariejosé antonio Cheoquyen on 12-31-2024 Lymphocytes Auto (Unsp spec) [#/Vol] 2.27 10*3/uL 0.83-4.51 [facility] Anion gap in Serum or Plasma Ordered By: Leonidesjosé antonio Cheobonimelanie on 12-31-2024 Anion gap [Moles/Vol] 14 mmol/L 5-15 [facility] Automated lymphocyte count a s percentage of total leukocytesOrdered By: Safia Ruelas on 12-31-2024 Lymphocytes/100 WBC Auto (Unsp spec) 32.9 % 19-41 [facility] BUN/creatinine ratioOrdered By: Leonidesdesireeskye Griderbonimelanie on 12-31-2024 Urea nitrogen/Creatinine [Mass ratio] 15.0 mg/mg 10-20 [facility] Basophil percentageOrdered B y: Safia Cheobonimelanie on 12-31-2024 Basophils/100 WBC (Bld) 0.6 % 0-[address] [facility] Carbon dioxide, total [Moles /volume] in Central venous bloodOrdered By: Balbirjean mariejosé antonio Cheobonimelanie on 12-31-2024 CO2 [Moles/Vol] 22.1 mmol/L 21.0-32.0 [facility] Chloride assayOrdered By: Balbir jean mariejosé antonio Griderbonimelanie on 12-31-2024 Chloride [Moles/Vol] 103 mmol/L 98-108 [facility] Eosinophil percentageOrdered By: Leonidesdesireeskye Griderbonimelanie on 12-31-2024 Eosinophils/100 WBC (Bld) 3.2 % 0-5 [facility] Erythrocyte distribution wid th ratioOrdered By: Safia Ruelas on 12-31-2024 Erythrocyte distribution width (RBC) [Ratio] 14.6 % 11.6-14.6 [facility] Erythrocyte distribution wid th standard deviationOrdered By: Safia Ruelas on 12-31-2024 Erythrocyte distribution width (RBC) [Ratio] 48.9 fl High 35.1-43.9 [facility] Glomerular filtration rate ( GFR) estimation/1.73 sq m using serum, plasma, or whole bOrdered By: Safia Ruelas on 12-31-2024 GFR/1.73 sq M.predicted among non-blacks MDRD (S/P/Bld) [Vol rate/Area] 88 mL/min/{1.73_m2} >60 [facility] Hematocrit Auto (Bld) [Volum e fraction]Ordered By: Leonideskekahaskye Ruelas on 12-31-2024 Hematocrit (Bld) [Volume fraction] 36.8 % Low 37-47 [facility] Hemoglobin A1c percentageOrd ered By: Safia Ruelas on 12-31-2024 HbA1c (Bld) [Mass fraction] 6.5 % High <5.7 [facility] Hemoglobin measurementOrdere d By: Safia Ruelas on 12-31-2024 Hemoglobin (Bld) [Mass/Vol] 11.8 g/dL Low 12.0-15.0 [facility] Immature granulocytes/100 WB C Auto (Bld)Ordered By: Safia Ruelas on 12-31-2024 Immature granulocytes/100 WBC (Bld) 0.300 % 0.0-0.9 [facility] MCV (mean corpuscular volume ) determinationOrdered By: Safia Ruelas on 12-31-2024 MCV (RBC) [Entitic vol] 91.3 fL 81-[address] [facility] Mean corpuscular hemoglobin (MCH) determinationOrdered By: Safia Ruelas on 12-31-2024 MCH (RBC) [Entitic mass] 29.3 pg 27.0-32.0 [facility] Monocyte percentageOrdered B y: Safia Ruelas on 12-31-2024 Monocytes/100 WBC (Bld) 9.4 % 0-10 [facility] Neutrophil percentageOrdered By: Safia Ruelas on 12-31-2024 Neutrophils/100 WBC (Bld) 53.6 % 47-70 [facility] Platelet countOrdered By: Balbir Ruelas on 12-31-2024 Platelets (Bld) [#/Vol] 232 10*3/uL 150-450 [facility] Potassium measurement (mass/ volume)Ordered By: Safia Ruelas on 12-31-2024 Potassium (Unsp spec) [Mass/Vol] 3.5 mmol/L 3.3-5.1 [facility] RBC Auto (Bld) [#/Vol]Ordere d By: Safia Ruelas on 12-31-2024 RBC (Bld) [#/Vol] 4.03 10*6/uL Low 4.2-5.[address] [facility] Serum creatinine measurement (mass/volume)Ordered By: Safia Ruelas on 12-31-2024 Creatinine [Mass/Vol] 0.70 mg/dL 0.70-1.20 [facility] Serum glucose measurement (m ass/volume)Ordered By: Safia Ruelas on 12-31-2024 Glucose [Mass/Vol] 142 mg/dL High 70-99 [facility] Serum or plasma calcium dayna urement (mass/volume)Ordered By: Safia Ruelas on 12-31-2024 Calcium [Mass/Vol] 8.4 mg/dL 7.6-11.0 [facility] Serum or plasma urea nitroge n measurement (mass/volume)Ordered By: Safia Ruelas on 12-31-2024 Urea nitrogen [Mass/Vol] 10 mg/dL 4-19 [facility] Sodium levelOrdered By: Leonides Ruelas on 12-31-2024 Sodium [Moles/Vol] 139 mmol/L 133-145 [facility] White blood cell (WBC) count Ordered By: Safia Ruelas on 12-31-2024 WBC (Bld) [#/Vol] 6.9 10*3/uL 4.4-11.0 [facility] Absolute lymphocyte countOrd ered By: Safia Ruelas on 12-24-2024 Lymphocytes Auto (Unsp spec) [#/Vol] 2.54 10*3/uL 0.83-4.51 [facility] Anion gap in Serum or Plasma Ordered By: Safia Ruelas on 12-24-2024 Anion gap [Moles/Vol] 14 mmol/L 5-15 [facility] Automated lymphocyte count a s percentage of total leukocytesOrdered By: Safia Griderbonimelanie on 12-24-2024 Lymphocytes/100 WBC Auto (Unsp spec) 28.0 % 19-41 [facility] BUN/creatinine ratioOrdered By: Safia Griderbonimelanie on 12-24-2024 Urea nitrogen/Creatinine [Mass ratio] 18.4 mg/mg 10-20 [facility] Basophil percentageOrdered B y: Safia Ruelas on 12-24-2024 Basophils/100 WBC (Bld) 0.8 % 0-1 [facility] Carbon dioxide, total [Moles /volume] in Central venous bloodOrdered By: Safia Ruelas on 12-24-2024 CO2 [Moles/Vol] 22.1 mmol/L 21.0-32.0 [facility] Chloride assayOrdered By: Balbir jean mariejosé antonio Ruelas on 12-24-2024 Chloride [Moles/Vol] 101 mmol/L 98-108 [facility] Eosinophil percentageOrdered By: Safia Ruelas on 12-24-2024 Eosinophils/100 WBC (Bld) 2.6 % 0-5 [facility] Erythrocyte distribution wid th ratioOrdered By: Safia Ruelas on 12-24-2024 Erythrocyte distribution width (RBC) [Ratio] 14.4 % 11.6-14.6 [facility] Erythrocyte distribution wid th standard deviationOrdered By: Safia Griderbonimelanie on 12-24-2024 Erythrocyte distribution width (RBC) [Ratio] 48.8 fl High 35.1-43.9 [facility] Glomerular filtration rate ( GFR) estimation/1.73 sq m using serum, plasma, or whole bOrdered By: Safia Ruelas on 12-24-2024 GFR/1.73 sq M.predicted among non-blacks MDRD (S/P/Bld) [Vol rate/Area] 83 mL/min/{1.73_m2} >60 [facility] Hematocrit Auto (Bld) [Volum e fraction]Ordered By: Safia Ruelas on 12-24-2024 Hematocrit (Bld) [Volume fraction] 37.9 % 37-47 [facility] Hemoglobin measurementOrdere d By: Leonidesjosé antonio Cheobonimelanie on 12-24-2024 Hemoglobin (Bld) [Mass/Vol] 12.2 g/dL 12.0-15.0 [facility] Immature granulocytes/100 WB C Auto (Bld)Ordered By: Safia Griderbonimelanie on 12-24-2024 Immature granulocytes/100 WBC (Bld) 0.400 % 0.0-0.9 [facility] MCV (mean corpuscular volume ) determinationOrdered By: Safia Griderbonimelanie on 12-24-2024 MCV (RBC) [Entitic vol] 92.2 fL 81-[address] [facility] Mean corpuscular hemoglobin (MCH) determinationOrdered By: Safia Griderbonimelanie on 12-24-2024 MCH (RBC) [Entitic mass] 29.7 pg 27.0-32.0 [facility] Monocyte percentageOrdered B y: Balbirjean mariedesireeskye Griderbonimelanie on 12-24-2024 Monocytes/100 WBC (Bld) 8.7 % 0-[address] [facility] Neutrophil percentageOrdered By: Leonideskekahaskey Griderbonimelanie on 12-24-2024 Neutrophils/100 WBC (Bld) 59.5 % 47-70 [facility] Platelet countOrdered By: Balbir sherry Cheobonimelanie on 12-24-2024 Platelets (Bld) [#/Vol] 256 10*3/uL 150-450 [facility] Potassium measurement (mass/ volume)Ordered By: Balbirjean mariedesireeskye Griderbonimelanie on 12-24-2024 Potassium (Unsp spec) [Mass/Vol] 3.4 mmol/L 3.3-5.1 [facility] RBC Auto (Bld) [#/Vol]Ordere d By: Leonidesjosé antonio Cheobonimelanie on 12-24-2024 RBC (Bld) [#/Vol] 4.11 10*6/uL Low 4.2-5.[address] [facility] Serum creatinine measurement (mass/volume)Ordered By: Safia Ruelas on 12-24-2024 Creatinine [Mass/Vol] 0.73 mg/dL 0.70-1.20 [facility] Serum glucose measurement (m ass/volume)Ordered By: Safia Griderbonimelanie on 12-24-2024 Glucose [Mass/Vol] 142 mg/dL High 70-99 [facility] Serum or plasma calcium dayna urement (mass/volume)Ordered By: Safia Ruelas on 12-24-2024 Calcium [Mass/Vol] 9.1 mg/dL 7.6-11.0 [facility] Serum or plasma urea nitroge n measurement (mass/volume)Ordered By: Safia Ruelas on 12-24-2024 Urea nitrogen [Mass/Vol] 13 mg/dL 4-19 [facility] Sodium levelOrdered By: Leonides josé antonio Jessenia on 12-24-2024 Sodium [Moles/Vol] 137 mmol/L 133-145 [facility] White blood cell (WBC) count Ordered By: Safia Griderbonimelanie on 12-24-2024 WBC (Bld) [#/Vol] 9.1 10*3/uL 4.4-11.0 [facility] Absolute lymphocyte countOrd ered By: Safia Ruelas on 12-17-2024 Lymphocytes Auto (Unsp spec) [#/Vol] 2.94 10*3/uL 0.83-4.51 [facility] Anion gap in Serum or Plasma Ordered By: Safia Ruelas on 12-17-2024 Anion gap [Moles/Vol] 15 mmol/L 5-15 [facility] Automated lymphocyte count a s percentage of total leukocytesOrdered By: Safia Ruelas on 12-17-2024 Lymphocytes/100 WBC Auto (Unsp spec) 30.5 % 19-41 [facility] BUN/creatinine ratioOrdered By: Safia Ruelas on 12-17-2024 Urea nitrogen/Creatinine [Mass ratio] 23.4 mg/mg High 10-20 [facility] Basophil percentageOrdered B y: Safia Ruelas on 12-17-2024 Basophils/100 WBC (Bld) 0.7 % 0-[address] [facility] Carbon dioxide, total [Moles /volume] in Central venous bloodOrdered By: Safia Ruelas on 12-17-2024 CO2 [Moles/Vol] 22.1 mmol/L 21.0-32.0 [facility] Chloride assayOrdered By: Balbir Ruelas on 12-17-2024 Chloride [Moles/Vol] 102 mmol/L 98-108 [facility] Eosinophil percentageOrdered By: jean mariekekahaskye Ruelas on 12-17-2024 Eosinophils/100 WBC (Bld) 2.3 % 0-5 [facility] Erythrocyte distribution wid th ratioOrdered By: jean mariekekahaskye Ruelas on 12-17-2024 Erythrocyte distribution width (RBC) [Ratio] 14.1 % 11.6-14.6 [facility] Erythrocyte distribution wid th standard deviationOrdered By: Leonideskekahaskye Ruelas on 12-17-2024 Erythrocyte distribution width (RBC) [Ratio] 47.3 fl High 35.1-43.9 [facility] Glomerular filtration rate ( GFR) estimation/1.73 sq m using serum, plasma, or whole bOrdered By: Safia Ruelas on 12-17-2024 GFR/1.73 sq M.predicted among non-blacks MDRD (S/P/Bld) [Vol rate/Area] 77 mL/min/{1.73_m2} >60 [facility] Hematocrit Auto (Bld) [Volum e fraction]Ordered By: Safia Ruelas on 12-17-2024 Hematocrit (Bld) [Volume fraction] 40.2 % 37-47 [facility] Hemoglobin measurementOrdere d By: Safia Ruelas on 12-17-2024 Hemoglobin (Bld) [Mass/Vol] 12.7 g/dL 12.0-15.0 [facility] Immature granulocytes/100 WB C Auto (Bld)Ordered By: Safia Ruelas on 12-17-2024 Immature granulocytes/100 WBC (Bld) 0.400 % 0.0-0.9 [facility] MCV (mean corpuscular volume ) determinationOrdered By: Safia Ruelas on 12-17-2024 MCV (RBC) [Entitic vol] 92.2 fL 81-[address] [facility] Mean corpuscular hemoglobin (MCH) determinationOrdered By: Safia Ruelas on 12-17-2024 MCH (RBC) [Entitic mass] 29.1 pg 27.0-32.0 [facility] Monocyte percentageOrdered B y: Safia Ruelas on 12-17-2024 Monocytes/100 WBC (Bld) 8.6 % 0-[address] [facility] Neutrophil percentageOrdered By: Safia Ruelas on 12-17-2024 Neutrophils/100 WBC (Bld) 57.5 % 47-70 [facility] Platelet countOrdered By: Balbir Ruelas on 12-17-2024 Platelets (Bld) [#/Vol] 287 10*3/uL 150-450 [facility] Potassium measurement (mass/ volume)Ordered By: Safia Ruelas on 12-17-2024 Potassium (Unsp spec) [Mass/Vol] 3.5 mmol/L 3.3-5.1 [facility] RBC Auto (Bld) [#/Vol]Ordere d By: Safia Ruelas on 12-17-2024 RBC (Bld) [#/Vol] 4.36 10*6/uL 4.2-5.[address] [facility] Serum creatinine measurement (mass/volume)Ordered By: Safia Ruelas on 12-17-2024 Creatinine [Mass/Vol] 0.78 mg/dL 0.70-1.20 [facility] Serum glucose measurement (m ass/volume)Ordered By: Safia Ruelas on 12-17-2024 Glucose [Mass/Vol] 125 mg/dL High 70-99 [facility] Serum or plasma calcium dayna urement (mass/volume)Ordered By: Safia Ruelas on 12-17-2024 Calcium [Mass/Vol] 9.2 mg/dL 7.6-11.0 [facility] Serum or plasma urea nitroge n measurement (mass/volume)Ordered By: Safia Ruelas on 12-17-2024 Urea nitrogen [Mass/Vol] 18 mg/dL 4-19 [facility] Sodium levelOrdered By: Leonides josé antonio Jessenia on 12-17-2024 Sodium [Moles/Vol] 139 mmol/L 133-145 [facility] White blood cell (WBC) count Ordered By: Safia Ruelas on 12-17-2024 WBC (Bld) [#/Vol] 9.6 10*3/uL 4.4-11.0 [facility] Absolute lymphocyte countOrd ered By: Safia Ruelas on 12-10-2024 Lymphocytes Auto (Unsp spec) [#/Vol] 2.59 10*3/uL 0.83-4.51 [facility] Anion gap in Serum or Plasma Ordered By: Safia Ruelas on 12-10-2024 Anion gap [Moles/Vol] 15 mmol/L 5-15 [facility] Automated lymphocyte count a s percentage of total leukocytesOrdered By: Safia Ruelas on 12-10-2024 Lymphocytes/100 WBC Auto (Unsp spec) 30.2 % 19-41 [facility] BUN/creatinine ratioOrdered By: Safia Ruelas on 12-10-2024 Urea nitrogen/Creatinine [Mass ratio] 25.6 mg/mg High 10-20 [facility] Basophil percentageOrdered B y: Safia Ruelas on 12-10-2024 Basophils/100 WBC (Bld) 0.9 % 0-[address] [facility] Carbon dioxide, total [Moles /volume] in Central venous bloodOrdered By: Safia Ruelas on 12-10-2024 CO2 [Moles/Vol] 21.7 mmol/L 21.0-32.0 [facility] Chloride assayOrdered By: Balbir Ruelas on 12-10-2024 Chloride [Moles/Vol] 101 mmol/L 98-108 [facility] Eosinophil percentageOrdered By: Safia Ruelas on 12-10-2024 Eosinophils/100 WBC (Bld) 1.9 % 0-5 [facility] Erythrocyte distribution wid th ratioOrdered By: Safia Ruelas on 12-10-2024 Erythrocyte distribution width (RBC) [Ratio] 13.7 % 11.6-14.6 [facility] Erythrocyte distribution wid th standard deviationOrdered By: Safia Ruelas on 12-10-2024 Erythrocyte distribution width (RBC) [Ratio] 46.8 fl High 35.1-43.9 [facility] Glomerular filtration rate ( GFR) estimation/1.73 sq m using serum, plasma, or whole bOrdered By: Safia Ruelas on 12-10-2024 GFR/1.73 sq M.predicted among non-blacks MDRD (S/P/Bld) [Vol rate/Area] 72 mL/min/{1.73_m2} >60 [facility] Hematocrit Auto (Bld) [Volum e fraction]Ordered By: Leonideskekahaskye Ruelas on 12-10-2024 Hematocrit (Bld) [Volume fraction] 38.8 % 37-47 [facility] Hemoglobin measurementOrdere d By: Safia Ruelas on 12-10-2024 Hemoglobin (Bld) [Mass/Vol] 12.3 g/dL 12.0-15.0 [facility] Immature granulocytes/100 WB C Auto (Bld)Ordered By: Safia Ruelas on 12-10-2024 Immature granulocytes/100 WBC (Bld) 0.500 % 0.0-0.9 [facility] MCV (mean corpuscular volume ) determinationOrdered By: Safia Ruelas on 12-10-2024 MCV (RBC) [Entitic vol] 93.3 fL 81-[address] [facility] Mean corpuscular hemoglobin (MCH) determinationOrdered By: jean mariekekahaskye Ruelas on 12-10-2024 MCH (RBC) [Entitic mass] 29.6 pg 27.0-32.0 [facility] Monocyte percentageOrdered B y: Safia Ruelas on 12-10-2024 Monocytes/100 WBC (Bld) 8.2 % 0-[address] [facility] Neutrophil percentageOrdered By: jean mariekekahaskye Ruelas on 12-10-2024 Neutrophils/100 WBC (Bld) 58.3 % 47-70 [facility] Platelet countOrdered By: Balbir Ruelas on 12-10-2024 Platelets (Bld) [#/Vol] 247 10*3/uL 150-450 [facility] Potassium measurement (mass/ volume)Ordered By: Safia Ruelas on 12-10-2024 Potassium (Unsp spec) [Mass/Vol] 3.8 mmol/L 3.3-5.1 [facility] RBC Auto (Bld) [#/Vol]Ordere d By: Safia Ruelas on 12-10-2024 RBC (Bld) [#/Vol] 4.16 10*6/uL Low 4.2-5.[address] [facility] Serum creatinine measurement (mass/volume)Ordered By: Safia Ruelas on 12-10-2024 Creatinine [Mass/Vol] 0.82 mg/dL 0.70-1.20 [facility] Serum glucose measurement (m ass/volume)Ordered By: Safia Cheoquyen on 12-10-2024 Glucose [Mass/Vol] 149 mg/dL High 70-99 [facility] Serum or plasma calcium dayna urement (mass/volume)Ordered By: Safia Ruelas on 12-10-2024 Calcium [Mass/Vol] 9.1 mg/dL 7.6-11.0 [facility] Serum or plasma urea nitroge n measurement (mass/volume)Ordered By: Safia Ruelas on 12-10-2024 Urea nitrogen [Mass/Vol] 21 mg/dL High 4-19 [facility] Sodium levelOrdered By: Leonides Ruelas on 12-10-2024 Sodium [Moles/Vol] 137 mmol/L 133-145 [facility] White blood cell (WBC) count Ordered By: Safia Cheoquyen on 12-10-2024 WBC (Bld) [#/Vol] 8.6 10*3/uL 4.4-11.0 [facility] Absolute lymphocyte countOrd ered By: Safia Cheoquyen on 12-03-2024 Lymphocytes Auto (Unsp spec) [#/Vol] 2.81 10*3/uL 0.83-4.51 [facility] Anion gap in Serum or Plasma Ordered By: Safia Ruelas on 12-03-2024 Anion gap [Moles/Vol] 14 mmol/L 5-15 [facility] Automated lymphocyte count a s percentage of total leukocytesOrdered By: Safia Ruelas on 12-03-2024 Lymphocytes/100 WBC Auto (Unsp spec) 28.3 % 19-41 [facility] BUN/creatinine ratioOrdered By: Safia Ruelas on 12-03-2024 Urea nitrogen/Creatinine [Mass ratio] 28.4 mg/mg High 10-20 [facility] Basophil percentageOrdered B y: Safia Ruelas on 12-03-2024 Basophils/100 WBC (Bld) 0.6 % 0-[address] [facility] Carbon dioxide, total [Moles /volume] in Central venous bloodOrdered By: Leonideskekahaskye Ruelas on 12-03-2024 CO2 [Moles/Vol] 23.3 mmol/L 21.0-32.0 [facility] Chloride assayOrdered By: Balbir Ruelas on 12-03-2024 Chloride [Moles/Vol] 102 mmol/L 98-108 [facility] Eosinophil percentageOrdered By: Safia Ruelas on 12-03-2024 Eosinophils/100 WBC (Bld) 1.5 % 0-5 [facility] Erythrocyte distribution wid th ratioOrdered By: Safia Ruelas on 12-03-2024 Erythrocyte distribution width (RBC) [Ratio] 14.1 % 11.6-14.6 [facility] Erythrocyte distribution wid th standard deviationOrdered By: Safia Ruelas on 12-03-2024 Erythrocyte distribution width (RBC) [Ratio] 47.9 fl High 35.1-43.9 [facility] Glomerular filtration rate ( GFR) estimation/1.73 sq m using serum, plasma, or whole bOrdered By: Safia Ruelas on 12-03-2024 GFR/1.73 sq M.predicted among non-blacks MDRD (S/P/Bld) [Vol rate/Area] 65 mL/min/{1.73_m2} >60 [facility] Hematocrit Auto (Bld) [Volum e fraction]Ordered By: Safia Griderbonimelanie on 12-03-2024 Hematocrit (Bld) [Volume fraction] 40.0 % 37-47 [facility] Hemoglobin measurementOrdere d By: Safia Ruelas on 12-03-2024 Hemoglobin (Bld) [Mass/Vol] 12.9 g/dL 12.0-15.0 [facility] Immature granulocytes/100 WB C Auto (Bld)Ordered By: Balbirjean mariejosé antonio Cheobonimelanie on 12-03-2024 Immature granulocytes/100 WBC (Bld) 0.300 % 0.0-0.9 [facility] MCV (mean corpuscular volume ) determinationOrdered By: Balbirsherry Griderbonimelanie on 12-03-2024 MCV (RBC) [Entitic vol] 91.3 fL 81-[address] [facility] Mean corpuscular hemoglobin (MCH) determinationOrdered By: Balbirsherry Griderbonimelanie on 12-03-2024 MCH (RBC) [Entitic mass] 29.5 pg 27.0-32.0 [facility] Monocyte percentageOrdered B y: Safia Cheoobnimelanie on 12-03-2024 Monocytes/100 WBC (Bld) 9.6 % 0-[address] [facility] Neutrophil percentageOrdered By: Safia Ruelas on 12-03-2024 Neutrophils/100 WBC (Bld) 59.7 % 47-70 [facility] Platelet countOrdered By: Balbir powell Cheobonimelanie on 12-03-2024 Platelets (Bld) [#/Vol] 280 10*3/uL 150-450 [facility] Potassium measurement (mass/ volume)Ordered By: Balbirjean mariedesireeskye Griderbonimelanie on 12-03-2024 Potassium (Unsp spec) [Mass/Vol] 4.0 mmol/L 3.3-5.1 [facility] RBC Auto (Bld) [#/Vol]Ordere d By: Safia Cheobonimelanie on 12-03-2024 RBC (Bld) [#/Vol] 4.38 10*6/uL 4.2-5.[address] [facility] Serum creatinine measurement (mass/volume)Ordered By: Safia Ruelas on 12-03-2024 Creatinine [Mass/Vol] 0.89 mg/dL 0.70-1.20 [facility] Serum glucose measurement (m ass/volume)Ordered By: Safia Ruelas on 12-03-2024 Glucose [Mass/Vol] 77 mg/dL 70-99 [facility] Serum or plasma calcium dayna urement (mass/volume)Ordered By: Safia Griderbonimelanie on 12-03-2024 Calcium [Mass/Vol] 9.6 mg/dL 7.6-11.0 [facility] Serum or plasma urea nitroge n measurement (mass/volume)Ordered By: Safia Ruelas on 12-03-2024 Urea nitrogen [Mass/Vol] 25 mg/dL High 4-19 [facility] Sodium levelOrdered By: Leonides josé antonio Jessenia on 12-03-2024 Sodium [Moles/Vol] 139 mmol/L 133-145 [facility] TSH DL <= 0.005 mIU/L QnOrde red By: Leonidesdesireeskye Griderbonimelanie on 12-03-2024 TSH Qn 3.500 uIU/mL 0.300-4.200 [facility] White blood cell (WBC) count Ordered By: Safia Ruelas on 12-03-2024 WBC (Bld) [#/Vol] 9.9 10*3/uL 4.4-11.0 [facility] Absolute lymphocyte countOrd ered By: Safia Griderbonimelanie on 11-26-2024 Lymphocytes Auto (Unsp spec) [#/Vol] 2.99 10*3/uL 0.83-4.51 [facility] Absolute neutrophil countOrd ered By: Bandarskye Griderbonimelanie on 11-26-2024 Neutrophils (Bld) [#/Vol] 4.2 10*3/uL 2.0-7.7 [facility] Anion gap in Serum or Plasma Ordered By: Safia Griderbonimelanie on 11-26-2024 Anion gap [Moles/Vol] 13 mmol/L - [facility] Automated lymphocyte count a s percentage of total leukocytesOrdered By: Safia Ruelas on 11-26-2024 Lymphocytes/100 WBC Auto (Unsp spec) 37.1 % 19-41 [facility] BUN/creatinine ratioOrdered By: Safia Ruelas on 11-26-2024 Urea nitrogen/Creatinine [Mass ratio] 24.3 mg/mg High 10-20 [facility] Basophil percentageOrdered B y: Safia Ruelas on 11-26-2024 Basophils/100 WBC (Bld) 0.7 % 0-[address] [facility] Carbon dioxide, total [Moles /volume] in Central venous bloodOrdered By: Safia Ruelas on 11-26-2024 CO2 [Moles/Vol] 27.1 mmol/L 21.0-32.0 [facility] Chloride assayOrdered By: Balbir Ruelas on 11-26-2024 Chloride [Moles/Vol] 101 mmol/L 98-108 [facility] Eosinophil percentageOrdered By: sherry Ruelas on 11-26-2024 Eosinophils/100 WBC (Bld) 1.9 % 0-5 [facility] Erythrocyte distribution wid th ratioOrdered By: Safia Ruelas on 11-26-2024 Erythrocyte distribution width (RBC) [Ratio] 14.2 % 11.6-14.6 [facility] Erythrocyte distribution wid th standard deviationOrdered By: Safia Ruelas on 11-26-2024 Erythrocyte distribution width (RBC) [Ratio] 48.0 fl High 35.1-43.9 [facility] Glomerular filtration rate ( GFR) estimation/1.73 sq m using serum, plasma, or whole bOrdered By: Safia Ruelas on 11-26-2024 GFR/1.73 sq M.predicted among non-blacks MDRD (S/P/Bld) [Vol rate/Area] 63 mL/min/{1.73_m2} >60 [facility] Comment on above: mL/min/1.73m2 CKD-EP I Creatinine Equation (2020) Hematocrit Auto (Bld) [Volum e fraction]Ordered By: Safia Ruelas on 11-26-2024 Hematocrit (Bld) [Volume fraction] 42.7 % 37-47 [facility] Hemoglobin measurementOrdere d By: Safia Ruelas on 11-26-2024 Hemoglobin (Bld) [Mass/Vol] 13.6 g/dL 12.0-15.0 [facility] Immature granulocytes/100 WB C Auto (Bld)Ordered By: Safia Ruelas on 11-26-2024 Immature granulocytes/100 WBC (Bld) 0.500 % 0.0-0.9 [facility] Comment on above: IG% - Immature Granu locytes (promyelocytes, myelocytes and metamyelocytes) > 1% indicates that a LEFT SHIFT is Present. MCV (mean corpuscular volume ) determinationOrdered By: Safia Ruelas on 11-26-2024 MCV (RBC) [Entitic vol] 92.0 fL 81-[address] [facility] Mean corpuscular hemoglobin (MCH) determinationOrdered By: Safia Ruelas on 11-26-2024 MCH (RBC) [Entitic mass] 29.3 pg 27.0-32.0 [facility] Mean corpuscular hemoglobin concentration (MCHC) determinationOrdered By: Safia Ruelas on 11-26-2024 MCHC (RBC) [Mass/Vol] 31.9 g/dL Low 32-36 [facility] Mean platelet volume determi nationOrdered By: Safia Ruelas on 11-26-2024 Platelet mean volume (Bld) [Entitic vol] 11.5 fL 6.2-12.0 [facility] Monocyte percentageOrdered B y: Safia Ruelas on 11-26-2024 Monocytes/100 WBC (Bld) 7.7 % 0-[address] [facility] Neutrophil percentageOrdered By: Safia Ruelas on 11-26-2024 Neutrophils/100 WBC (Bld) 52.1 % 47-70 [facility] Nucleated red blood cell per centageOrdered By: Safia Ruelas on 11-26-2024 Nucleated RBC/100 WBC (Bld) [Ratio] 0 % 0-5 [facility] Platelet countOrdered By: Balbir Ruelas on 11-26-2024 Platelets (Bld) [#/Vol] 283 10*3/uL 150-450 [facility] Potassium measurement (mass/ volume)Ordered By: Safia Ruelas on 11-26-2024 Potassium (Unsp spec) [Mass/Vol] 3.8 mmol/L 3.3-5.1 [facility] RBC Auto (Bld) [#/Vol]Ordere d By: Leonidesdesireeskye Griderbonimelanie on 11-26-2024 RBC (Bld) [#/Vol] 4.64 10*6/uL 4.2-5.[address] [facility] Serum creatinine measurement (mass/volume)Ordered By: Safia Ruelas on 11-26-2024 Creatinine [Mass/Vol] 0.92 mg/dL 0.70-1.20 [facility] Serum glucose measurement (m ass/volume)Ordered By: Safia Ruelas on 11-26-2024 Glucose [Mass/Vol] 97 mg/dL 70-99 [facility] Serum or plasma calcium dayna urement (mass/volume)Ordered By: Safia Ruelas on 11-26-2024 Calcium [Mass/Vol] 10.0 mg/dL 7.6-11.0 [facility] Serum or plasma urea nitroge n measurement (mass/volume)Ordered By: Safia Ruelas on 11-26-2024 Urea nitrogen [Mass/Vol] 22 mg/dL High 4-19 [facility] Sodium levelOrdered By: Leonides josé antonio Cheobonimelanie on 11-26-2024 Sodium [Moles/Vol] 140 mmol/L 133-145 [facility] White blood cell (WBC) count Ordered By: Safia Ruelas on 11-26-2024 WBC (Bld) [#/Vol] 8.1 10*3/uL 4.4-11.0 [facility] Clostridium difficile detect ion by polymerase chain reactionOrdered By: Safia Ruelas on 11-25-2024 C. difficile DNA CHUCKY+probe Ql (Unsp spec) [facility] Absolute lymphocyte countOrd ered By: Safia Ruelas on 11-19-2024 Lymphocytes Auto (Unsp spec) [#/Vol] 2.71 10*3/uL 0.83-4.51 [facility] Absolute neutrophil countOrd ered By: Safia Ruelas on 11-19-2024 Neutrophils (Bld) [#/Vol] 5.2 10*3/uL 2.0-7.7 [facility] Anion gap in Serum or Plasma Ordered By: Safia Ruelas on 11-19-2024 Anion gap [Moles/Vol] 12 mmol/L 5-15 [facility] Automated lymphocyte count a s percentage of total leukocytesOrdered By: Safia Ruelas on 11-19-2024 Lymphocytes/100 WBC Auto (Unsp spec) 30.4 % 19-41 [facility] BUN/creatinine ratioOrdered By: jean mariekekahaskye Ruelas on 11-19-2024 Urea nitrogen/Creatinine [Mass ratio] 25.0 mg/mg High 10-20 [facility] Basophil percentageOrdered B y: Safia Ruelas on 11-19-2024 Basophils/100 WBC (Bld) 0.6 % 0-[address] [facility] Carbon dioxide, total [Moles /volume] in Central venous bloodOrdered By: Safia Ruelas on 11-19-2024 CO2 [Moles/Vol] 25.5 mmol/L 21.0-32.0 [facility] Chloride assayOrdered By: Balbir Ruelas on 11-19-2024 Chloride [Moles/Vol] 101 mmol/L 98-108 [facility] Eosinophil percentageOrdered By: jean mariekekahaskye Ruelas on 11-19-2024 Eosinophils/100 WBC (Bld) 2.1 % 0-5 [facility] Erythrocyte distribution wid th ratioOrdered By: Safia Ruelas on 11-19-2024 Erythrocyte distribution width (RBC) [Ratio] 13.9 % 11.6-14.6 [facility] Erythrocyte distribution wid th standard deviationOrdered By: sherry Ruelas on 11-19-2024 Erythrocyte distribution width (RBC) [Ratio] 46.6 fl High 35.1-43.9 [facility] Glomerular filtration rate ( GFR) estimation/1.73 sq m using serum, plasma, or whole bOrdered By: Safia Ruelas on 11-19-2024 GFR/1.73 sq M.predicted among non-blacks MDRD (S/P/Bld) [Vol rate/Area] 66 mL/min/{1.73_m2} >60 [facility] Comment on above: mL/min/1.73m2 CKD-EP I Creatinine Equation (2020) Hematocrit Auto (Bld) [Volum e fraction]Ordered By: Safia Ruelas on 11-19-2024 Hematocrit (Bld) [Volume fraction] 39.2 % 37-47 [facility] Hemoglobin measurementOrdere d By: Safia Ruelas on 11-19-2024 Hemoglobin (Bld) [Mass/Vol] 12.7 g/dL 12.0-15.0 [facility] Immature granulocytes/100 WB C Auto (Bld)Ordered By: Safia Ruelas on 11-19-2024 Immature granulocytes/100 WBC (Bld) 0.300 % 0.0-0.9 [facility] Comment on above: IG% - Immature Granu locytes (promyelocytes, myelocytes and metamyelocytes) > 1% indicates that a LEFT SHIFT is Present. MCV (mean corpuscular volume ) determinationOrdered By: Safia Ruelas on 11-19-2024 MCV (RBC) [Entitic vol] 91.4 fL 81-[address] [facility] Mean corpuscular hemoglobin (MCH) determinationOrdered By: Safia Ruelas on 11-19-2024 MCH (RBC) [Entitic mass] 29.6 pg 27.0-32.0 [facility] Mean corpuscular hemoglobin concentration (MCHC) determinationOrdered By: Safia Ruelas on 11-19-2024 MCHC (RBC) [Mass/Vol] 32.4 g/dL 32-36 [facility] Mean platelet volume determi nationOrdered By: Safia Ruelas on 11-19-2024 Platelet mean volume (Bld) [Entitic vol] 11.5 fL 6.2-12.0 [facility] Monocyte percentageOrdered B y: Safia Ruelas on 11-19-2024 Monocytes/100 WBC (Bld) 7.8 % 0-[address] [facility] Neutrophil percentageOrdered By: Safia Ruelas on 11-19-2024 Neutrophils/100 WBC (Bld) 58.8 % 47-70 [facility] Nucleated red blood cell per centageOrdered By: Safia Cheoquyen on 11-19-2024 Nucleated RBC/100 WBC (Bld) [Ratio] 0 % 0-5 [facility] Platelet countOrdered By: Balbir sherry Cheobonimelanie on 11-19-2024 Platelets (Bld) [#/Vol] 300 10*3/uL 150-450 [facility] Potassium measurement (mass/ volume)Ordered By: Safia Griderbonimelanie on 11-19-2024 Potassium (Unsp spec) [Mass/Vol] 3.8 mmol/L 3.3-5.1 [facility] RBC Auto (Bld) [#/Vol]Ordere d By: Leonidesdesireeskye Griderbonimelanie on 11-19-2024 RBC (Bld) [#/Vol] 4.29 10*6/uL 4.2-5.[address] [facility] Serum creatinine measurement (mass/volume)Ordered By: Safia Ruelas on 11-19-2024 Creatinine [Mass/Vol] 0.88 mg/dL 0.70-1.20 [facility] Serum glucose measurement (m ass/volume)Ordered By: Balbirjean mariedesireeskye Ruelas on 11-19-2024 Glucose [Mass/Vol] 136 mg/dL High 70-99 [facility] Serum or plasma calcium dayna urement (mass/volume)Ordered By: Leonidesdesireeskye Griderbonimelanie on 11-19-2024 Calcium [Mass/Vol] 9.6 mg/dL 7.6-11.0 [facility] Serum or plasma urea nitroge n measurement (mass/volume)Ordered By: Safia Ruelas on 11-19-2024 Urea nitrogen [Mass/Vol] 22 mg/dL High 4-19 [facility] Sodium levelOrdered By: Balbirjean marie josé antonio Cheobonimelanie on 11-19-2024 Sodium [Moles/Vol] 139 mmol/L 133-145 [facility] White blood cell (WBC) count Ordered By: Safia Ruelas on 11-19-2024 WBC (Bld) [#/Vol] 8.9 10*3/uL 4.4-11.0 [facility] Absolute lymphocyte countOrd ered By: Leonidesjosé antonio Cheobonimelanie on 11-12-2024 Lymphocytes Auto (Unsp spec) [#/Vol] 2.49 10*3/uL 0.83-4.51 [facility] Absolute neutrophil countOrd ered By: Leonidesdesireeskye Griderbonimelanie on 11-12-2024 Neutrophils (Bld) [#/Vol] 4.2 10*3/uL 2.0-7.7 [facility] Anion gap in Serum or Plasma Ordered By: Safia Ruelas on 11-12-2024 Anion gap [Moles/Vol] 12 mmol/L 5-15 [facility] Automated lymphocyte count a s percentage of total leukocytesOrdered By: Safia Ruelas on 11-12-2024 Lymphocytes/100 WBC Auto (Unsp spec) 31.9 % 19-41 [facility] BUN/creatinine ratioOrdered By: Safia Ruelas on 11-12-2024 Urea nitrogen/Creatinine [Mass ratio] 28.1 mg/mg High 10-20 [facility] Basophil percentageOrdered B y: Safia Ruelas on 11-12-2024 Basophils/100 WBC (Bld) 0.6 % 0-1 [facility] Carbon dioxide, total [Moles /volume] in Central venous bloodOrdered By: Safia Ruelas on 11-12-2024 CO2 [Moles/Vol] 25.1 mmol/L 21.0-32.0 [facility] Chloride assayOrdered By: Balbir Ruelas on 11-12-2024 Chloride [Moles/Vol] 102 mmol/L 98-108 [facility] Eosinophil percentageOrdered By: sherry Ruelas on 11-12-2024 Eosinophils/100 WBC (Bld) 2.8 % 0-5 [facility] Erythrocyte distribution wid th ratioOrdered By: Safia Ruelas on 11-12-2024 Erythrocyte distribution width (RBC) [Ratio] 13.8 % 11.6-14.6 [facility] Erythrocyte distribution wid th standard deviationOrdered By: Safia Ruelas on 11-12-2024 Erythrocyte distribution width (RBC) [Ratio] 46.7 fl High 35.1-43.9 [facility] Glomerular filtration rate ( GFR) estimation/1.73 sq m using serum, plasma, or whole bOrdered By: Safia Ruelas on 11-12-2024 GFR/1.73 sq M.predicted among non-blacks MDRD (S/P/Bld) [Vol rate/Area] 70 mL/min/{1.73_m2} >60 [facility] Comment on above: mL/min/1.73m2 CKD-EP I Creatinine Equation (2020) Hematocrit Auto (Bld) [Volum e fraction]Ordered By: jean mariekekahaskye Ruelas on 11-12-2024 Hematocrit (Bld) [Volume fraction] 40.6 % 37-47 [facility] Hemoglobin measurementOrdere d By: Safia Ruelas on 11-12-2024 Hemoglobin (Bld) [Mass/Vol] 13.2 g/dL 12.0-15.0 [facility] Immature granulocytes/100 WB C Auto (Bld)Ordered By: Safia Ruelas on 11-12-2024 Immature granulocytes/100 WBC (Bld) 0.400 % 0.0-0.9 [facility] Comment on above: IG% - Immature Granu locytes (promyelocytes, myelocytes and metamyelocytes) > 1% indicates that a LEFT SHIFT is Present. MCV (mean corpuscular volume ) determinationOrdered By: Safia Ruelas on 11-12-2024 MCV (RBC) [Entitic vol] 92.1 fL 81-[address] [facility] Mean corpuscular hemoglobin (MCH) determinationOrdered By: Safia Ruelas on 11-12-2024 MCH (RBC) [Entitic mass] 29.9 pg 27.0-32.0 [facility] Mean corpuscular hemoglobin concentration (MCHC) determinationOrdered By: jean mariekekahaskye Ruelas on 11-12-2024 MCHC (RBC) [Mass/Vol] 32.5 g/dL 32-36 [facility] Mean platelet volume determi nationOrdered By: Safia Ruelas on 11-12-2024 Platelet mean volume (Bld) [Entitic vol] 11.7 fL 6.2-12.0 [facility] Monocyte percentageOrdered B y: Safia Ruelas on 11-12-2024 Monocytes/100 WBC (Bld) 10.0 % 0-[address] [facility] Neutrophil percentageOrdered By: Safia Ruelas on 11-12-2024 Neutrophils/100 WBC (Bld) 54.3 % 47-70 [facility] Nucleated red blood cell per centageOrdered By: Safia Ruelas on 11-12-2024 Nucleated RBC/100 WBC (Bld) [Ratio] 0 % 0-5 [facility] Platelet countOrdered By: Balbir Ruelas on 11-12-2024 Platelets (Bld) [#/Vol] 304 10*3/uL 150-450 [facility] Potassium measurement (mass/ volume)Ordered By: Safia Ruelas on 11-12-2024 Potassium (Unsp spec) [Mass/Vol] 3.9 mmol/L 3.3-5.1 [facility] RBC Auto (Bld) [#/Vol]Ordere d By: Safia Ruelas on 11-12-2024 RBC (Bld) [#/Vol] 4.41 10*6/uL 4.2-5.[address] [facility] Serum creatinine measurement (mass/volume)Ordered By: Safia Ruelas on 11-12-2024 Creatinine [Mass/Vol] 0.84 mg/dL 0.70-1.20 [facility] Serum glucose measurement (m ass/volume)Ordered By: Safia Ruelas on 11-12-2024 Glucose [Mass/Vol] 112 mg/dL High 70-99 [facility] Serum or plasma calcium dayna urement (mass/volume)Ordered By: Safia Ruelas on 11-12-2024 Calcium [Mass/Vol] 9.7 mg/dL 7.6-11.0 [facility] Serum or plasma urea nitroge n measurement (mass/volume)Ordered By: Safia Ruelas on 11-12-2024 Urea nitrogen [Mass/Vol] 24 mg/dL High 4-19 [facility] Sodium levelOrdered By: Leonides josé antonio Cheobonimelanie on 11-12-2024 Sodium [Moles/Vol] 139 mmol/L 133-145 [facility] White blood cell (WBC) count Ordered By: Leonidesjosé antonio Cheobonimelanie on 11-12-2024 WBC (Bld) [#/Vol] 7.8 10*3/uL 4.4-11.0 [facility] Absolute lymphocyte countOrd ered By: Leonidesdesireeskye Griderbonimelanie on 11-05-2024 Lymphocytes Auto (Unsp spec) [#/Vol] 2.91 10*3/uL 0.83-4.51 [facility] Absolute neutrophil countOrd ered By: Safia Griderbonimelanie on 11-05-2024 Neutrophils (Bld) [#/Vol] 4.6 10*3/uL 2.0-7.7 [facility] Anion gap in Serum or Plasma Ordered By: Safia Griderbonimelanie on 11-05-2024 Anion gap [Moles/Vol] 13 mmol/L 5-15 [facility] Automated lymphocyte count a s percentage of total leukocytesOrdered By: Safia Ruelas on 11-05-2024 Lymphocytes/100 WBC Auto (Unsp spec) 33.7 % 19-41 [facility] BUN/creatinine ratioOrdered By: Safia Griderbonimelanie on 11-05-2024 Urea nitrogen/Creatinine [Mass ratio] 23.3 mg/mg High 10-20 [facility] Basophil percentageOrdered B y: Safia Griderbonimelanie on 11-05-2024 Basophils/100 WBC (Bld) 0.9 % 0-1 [facility] Carbon dioxide, total [Moles /volume] in Central venous bloodOrdered By: Safia Ruelas on 11-05-2024 CO2 [Moles/Vol] 24.2 mmol/L 21.0-32.0 [facility] Chloride assayOrdered By: Balbir Ruelas on 11-05-2024 Chloride [Moles/Vol] 102 mmol/L 98-108 [facility] Eosinophil percentageOrdered By: Safia Ruelas on 11-05-2024 Eosinophils/100 WBC (Bld) 2.7 % 0-5 [facility] Erythrocyte distribution wid th ratioOrdered By: Safia Ruelas on 11-05-2024 Erythrocyte distribution width (RBC) [Ratio] 13.9 % 11.6-14.6 [facility] Erythrocyte distribution wid th standard deviationOrdered By: Safia Ruelas on 11-05-2024 Erythrocyte distribution width (RBC) [Ratio] 47.1 fl High 35.1-43.9 [facility] Glomerular filtration rate ( GFR) estimation/1.73 sq m using serum, plasma, or whole bOrdered By: Safia Ruelas on 11-05-2024 GFR/1.73 sq M.predicted among non-blacks MDRD (S/P/Bld) [Vol rate/Area] 62 mL/min/{1.73_m2} >60 [facility] Comment on above: mL/min/1.73m2 CKD-EP I Creatinine Equation (2020) Hematocrit Auto (Bld) [Volum e fraction]Ordered By: Safia Ruelas on 11-05-2024 Hematocrit (Bld) [Volume fraction] 40.7 % 37-47 [facility] Hemoglobin measurementOrdere d By: Safia Ruelas on 11-05-2024 Hemoglobin (Bld) [Mass/Vol] 12.9 g/dL 12.0-15.0 [facility] Immature granulocytes/100 WB C Auto (Bld)Ordered By: Safia Ruelas 11-05-2024 Immature granulocytes/100 WBC (Bld) 0.500 % 0.0-0.9 [facility] Comment on above: IG% - Immature Granu locytes (promyelocytes, myelocytes and metamyelocytes) > 1% indicates that a LEFT SHIFT is Present. MCV (mean corpuscular volume ) determinationOrdered By: Safia Ruelas on 11-05-2024 MCV (RBC) [Entitic vol] 92.9 fL 81-[address] [facility] Mean corpuscular hemoglobin (MCH) determinationOrdered By: Leonideskekahaskye Ruelas 11-05-2024 MCH (RBC) [Entitic mass] 29.5 pg 27.0-32.0 [facility] Mean corpuscular hemoglobin concentration (MCHC) determinationOrdered By: Safia Ruelas on 11-05-2024 MCHC (RBC) [Mass/Vol] 31.7 g/dL Low 32-36 [facility] Mean platelet volume determi nationOrdered By: Safia Ruelas on 11-05-2024 Platelet mean volume (Bld) [Entitic vol] 11.2 fL 6.2-12.0 [facility] Monocyte percentageOrdered B y: Safia Ruelas on 11-05-2024 Monocytes/100 WBC (Bld) 8.6 % 0-[address] [facility] Neutrophil percentageOrdered By: Safia Ruelas on 11-05-2024 Neutrophils/100 WBC (Bld) 53.6 % 47-70 [facility] Nucleated red blood cell per centageOrdered By: Safia Ruelas on 11-05-2024 Nucleated RBC/100 WBC (Bld) [Ratio] 0 % 0-5 [facility] Platelet countOrdered By: Balbir Ruelas on 11-05-2024 Platelets (Bld) [#/Vol] 318 10*3/uL 150-450 [facility] Potassium measurement (mass/ volume)Ordered By: Safia Ruelas on 11-05-2024 Potassium (Unsp spec) [Mass/Vol] 4.0 mmol/L 3.3-5.1 [facility] RBC Auto (Bld) [#/Vol]Ordere d By: Safia Ruelas on 11-05-2024 RBC (Bld) [#/Vol] 4.38 10*6/uL 4.2-5.[address] [facility] Serum creatinine measurement (mass/volume)Ordered By: Safia Ruelas on 11-05-2024 Creatinine [Mass/Vol] 0.93 mg/dL 0.70-1.20 [facility] Serum glucose measurement (m ass/volume)Ordered By: Safia Ruelas on 11-05-2024 Glucose [Mass/Vol] 70 mg/dL 70-99 [facility] Serum or plasma calcium dayna urement (mass/volume)Ordered By: Safia Ruelas on 11-05-2024 Calcium [Mass/Vol] 9.5 mg/dL 7.6-11.0 [facility] Serum or plasma urea nitroge n measurement (mass/volume)Ordered By: Bandarskye Griderbonimelanie on 11-05-2024 Urea nitrogen [Mass/Vol] 22 mg/dL High 4-19 [facility] Sodium levelOrdered By: Leonides Ruelas on 11-05-2024 Sodium [Moles/Vol] 139 mmol/L 133-145 [facility] White blood cell (WBC) count Ordered By: Balbirjean mariejosé antonio Cheobonimelanie on 11-05-2024 WBC (Bld) [#/Vol] 8.6 10*3/uL 4.4-11.0 [facility] Absolute lymphocyte countOrd ered By: Balbirjean mariejosé antonio Cheobonimelanie on 10-29-2024 Lymphocytes Auto (Unsp spec) [#/Vol] 2.69 10*3/uL 0.83-4.51 [facility] Absolute neutrophil countOrd ered By: Safia Cheobonimelanie on 10-29-2024 Neutrophils (Bld) [#/Vol] 4.5 10*3/uL 2.0-7.7 [facility] Anion gap in Serum or Plasma Ordered By: Balbirjean mariejosé antonio Cheobonimelanie on 10-29-2024 Anion gap [Moles/Vol] 11 mmol/L 5-15 [facility] Automated lymphocyte count a s percentage of total leukocytesOrdered By: Balbirsherry Griderbonimelanie on 10-29-2024 Lymphocytes/100 WBC Auto (Unsp spec) 32.6 % 19-41 [facility] BUN/creatinine ratioOrdered By: Balbirjean mariedesireeskye Griderbonimelanie on 10-29-2024 Urea nitrogen/Creatinine [Mass ratio] 25.2 mg/mg High 10-20 [facility] Basophil percentageOrdered B y: Safia Cheobonimelanie on 10-29-2024 Basophils/100 WBC (Bld) 0.7 % 0-1 [facility] Carbon dioxide, total [Moles /volume] in Central venous bloodOrdered By: Balbirsherry Griderbonimelanie on 10-29-2024 CO2 [Moles/Vol] 25.7 mmol/L 21.0-32.0 [facility] Chloride assayOrdered By: Balbir Ruelas on 10-29-2024 Chloride [Moles/Vol] 102 mmol/L 98-108 [facility] Eosinophil percentageOrdered By: Safia Ruelas on 10-29-2024 Eosinophils/100 WBC (Bld) 2.1 % 0-5 [facility] Erythrocyte distribution wid th ratioOrdered By: Safia Ruelas on 10-29-2024 Erythrocyte distribution width (RBC) [Ratio] 13.6 % 11.6-14.6 [facility] Erythrocyte distribution wid th standard deviationOrdered By: Safia Ruelas on 10-29-2024 Erythrocyte distribution width (RBC) [Ratio] 46.6 fl High 35.1-43.9 [facility] Glomerular filtration rate ( GFR) estimation/1.73 sq m using serum, plasma, or whole bOrdered By: Safia Ruelas on 10-29-2024 GFR/1.73 sq M.predicted among non-blacks MDRD (S/P/Bld) [Vol rate/Area] 59 mL/min/{1.73_m2} Low >60 [facility] Comment on above: mL/min/1.73m2 CKD-EP I Creatinine Equation (2020) Hematocrit Auto (Bld) [Volum e fraction]Ordered By: Safia Ruelas on 10-29-2024 Hematocrit (Bld) [Volume fraction] 37.8 % 37-47 [facility] Hemoglobin measurementOrdere d By: Safia Ruelas on 10-29-2024 Hemoglobin (Bld) [Mass/Vol] 12.2 g/dL 12.0-15.0 [facility] Immature granulocytes/100 WB C Auto (Bld)Ordered By: Safia Ruelas 10-29-2024 Immature granulocytes/100 WBC (Bld) 0.400 % 0.0-0.9 [facility] Comment on above: IG% - Immature Granu locytes (promyelocytes, myelocytes and metamyelocytes) > 1% indicates that a LEFT SHIFT is Present. MCV (mean corpuscular volume ) determinationOrdered By: Safia Ruelas on 10-29-2024 MCV (RBC) [Entitic vol] 92.2 fL 81-[address] [facility] Mean corpuscular hemoglobin (MCH) determinationOrdered By: Safia Ruelas on 10-29-2024 MCH (RBC) [Entitic mass] 29.8 pg 27.0-32.0 [facility] Mean corpuscular hemoglobin concentration (MCHC) determinationOrdered By: Safia Ruelas on 10-29-2024 MCHC (RBC) [Mass/Vol] 32.3 g/dL 32-36 [facility] Mean platelet volume determi nationOrdered By: Safia Ruelas on 10-29-2024 Platelet mean volume (Bld) [Entitic vol] 11.1 fL 6.2-12.0 [facility] Monocyte percentageOrdered B y: Safia Ruelas on 10-29-2024 Monocytes/100 WBC (Bld) 9.9 % 0-[address] [facility] Neutrophil percentageOrdered By: Safia Ruelas on 10-29-2024 Neutrophils/100 WBC (Bld) 54.3 % 47-70 [facility] Nucleated red blood cell per centageOrdered By: Safia Ruelas on 10-29-2024 Nucleated RBC/100 WBC (Bld) [Ratio] 0 % 0-5 [facility] Platelet countOrdered By: Balbir jean mariejosé antonio Ruelas on 10-29-2024 Platelets (Bld) [#/Vol] 283 10*3/uL 150-450 [facility] Potassium measurement (mass/ volume)Ordered By: Safia Ruelas on 10-29-2024 Potassium (Unsp spec) [Mass/Vol] 3.9 mmol/L 3.3-5.1 [facility] RBC Auto (Bld) [#/Vol]Ordere d By: Safia Ruelas on 10-29-2024 RBC (Bld) [#/Vol] 4.10 10*6/uL Low 4.2-5.[address] [facility] Serum creatinine measurement (mass/volume)Ordered By: Safia Ruelas on 10-29-2024 Creatinine [Mass/Vol] 0.97 mg/dL 0.70-1.20 [facility] Serum glucose measurement (m ass/volume)Ordered By: Safia Ruelas on 10-29-2024 Glucose [Mass/Vol] 74 mg/dL 70-99 [facility] Serum or plasma calcium dayna urement (mass/volume)Ordered By: Safia Ruelas on 10-29-2024 Calcium [Mass/Vol] 9.5 mg/dL 7.6-11.0 [facility] Serum or plasma urea nitroge n measurement (mass/volume)Ordered By: Safia Ruelas on 10-29-2024 Urea nitrogen [Mass/Vol] 24 mg/dL High 4-19 [facility] Sodium levelOrdered By: Leonides Ruelas on 10-29-2024 Sodium [Moles/Vol] 138 mmol/L 133-145 [facility] White blood cell (WBC) count Ordered By: Saifa Ruelas on 10-29-2024 WBC (Bld) [#/Vol] 8.3 10*3/uL 4.4-11.0 [facility] Bilirubin Test strip Ql (U)O rdered By: Safia Ruelas on 10-23-2024 Bilirubin Ql (U) Negative Negative [facility] Ketones Test strip Ql (U)Ord ered By: Safia Ruelas on 10-23-2024 Ketones Ql (U) Negative Negative [facility] Nitrite Test strip Ql (U)Ord ered By: Safia Ruelas on 10-23-2024 Nitrite Ql (U) Positive High Negative [facility] Protein Test strip Ql (U)Ord ered By: Safia Ruelas on 10-23-2024 Protein Ql (U) 15 mg/dl High Negative [facility] Urine clarityOrdered By: Augusto Ruelas on 10-23-2024 Clarity (U) Clear Clear [facility] Urine color determinationOrd ered By: Safia Ruelas on 10-23-2024 Color (U) Yellow Yellow [facility] Urine cultureOrdered By: Augusto Ruelas on 10-23-2024 Bacteria identified Cx Nom (U) Klebsiella pneumoniae sp pneum Abnormal [facility] Urine glucose detectionOrder ed By: Safia Ruelas on 10-23-2024 Glucose Ql (U) Normal mg/dl Normal [facility] Urine leukocyte esterase det ection by dipstickOrdered By: Safia Ruelas on 10-23-2024 Leukocyte esterase Test strip Ql (U) 500 /ul High Negative [facility] Urine pHOrdered By: Mazin Ruelas on 10-23-2024 pH (U) 6.0 [pH] 5.0 - 8.0 [facility] Urine specific gravity measu rementOrdered By: Safia Ruelas on 10-23-2024 Specific gravity (U) [Rel density] 1.010 1.002-1.030 [facility] Urine urobilinogen measureme ntOrdered By: Safia Ruelas on 10-23-2024 Urobilinogen Ql (U) Normal mg/dl Normal [facility] Absolute lymphocyte countOrd ered By: Safia Ruelas on 10-22-2024 Lymphocytes Auto (Unsp spec) [#/Vol] 3.07 10*3/uL 0.83-4.51 [facility] Absolute neutrophil countOrd ered By: Safia Ruelas on 10-22-2024 Neutrophils (Bld) [#/Vol] 4.6 10*3/uL 2.0-7.7 [facility] Anion gap in Serum or Plasma Ordered By: Safia Ruelas on 10-22-2024 Anion gap [Moles/Vol] 15 mmol/L 5-15 [facility] Automated lymphocyte count a s percentage of total leukocytesOrdered By: Safia Ruelas on 10-22-2024 Lymphocytes/100 WBC Auto (Unsp spec) 34.8 % 19-41 [facility] BUN/creatinine ratioOrdered By: Safia Ruelas on 10-22-2024 Urea nitrogen/Creatinine [Mass ratio] 28.6 mg/mg High 10-20 [facility] Basophil percentageOrdered B y: Safia Ruelas on 10-22-2024 Basophils/100 WBC (Bld) 0.9 % 0-[address] [facility] Carbon dioxide, total [Moles /volume] in Central venous bloodOrdered By: Safia Ruelas on 10-22-2024 CO2 [Moles/Vol] 23.1 mmol/L 21.0-32.0 [facility] Chloride assayOrdered By: Balbir Ruelas on 10-22-2024 Chloride [Moles/Vol] 100 mmol/L 98-108 [facility] Eosinophil percentageOrdered By: sherry Ruelas on 10-22-2024 Eosinophils/100 WBC (Bld) 3.1 % 0-5 [facility] Erythrocyte distribution wid th ratioOrdered By: jean mariekekahaskye Ruelas on 10-22-2024 Erythrocyte distribution width (RBC) [Ratio] 13.6 % 11.6-14.6 [facility] Erythrocyte distribution wid th standard deviationOrdered By: jean mariekekahaskye Ruelas on 10-22-2024 Erythrocyte distribution width (RBC) [Ratio] 45.9 fl High 35.1-43.9 [facility] Glomerular filtration rate ( GFR) estimation/1.73 sq m using serum, plasma, or whole bOrdered By: Safia Ruelas on 10-22-2024 GFR/1.73 sq M.predicted among non-blacks MDRD (S/P/Bld) [Vol rate/Area] 60 mL/min/{1.73_m2} >60 [facility] Comment on above: mL/min/1.73m2 CKD-EP I Creatinine Equation (2020) Hematocrit Auto (Bld) [Volum e fraction]Ordered By: Safia Ruelas on 10-22-2024 Hematocrit (Bld) [Volume fraction] 40.7 % 37-47 [facility] Hemoglobin measurementOrdere d By: Safia Ruelas on 10-22-2024 Hemoglobin (Bld) [Mass/Vol] 13.1 g/dL 12.0-15.0 [facility] Immature granulocytes/100 WB C Auto (Bld)Ordered By: Safia Ruelas on 10-22-2024 Immature granulocytes/100 WBC (Bld) 1.400 % High 0.0-0.9 [facility] Comment on above: IG% - Immature Granu locytes (promyelocytes, myelocytes and metamyelocytes) > 1% indicates that a LEFT SHIFT is Present. MCV (mean corpuscular volume ) determinationOrdered By: Safia Ruelas on 10-22-2024 MCV (RBC) [Entitic vol] 91.9 fL 81-[address] [facility] Mean corpuscular hemoglobin (MCH) determinationOrdered By: Safia Ruelas on 10-22-2024 MCH (RBC) [Entitic mass] 29.6 pg 27.0-32.0 [facility] Mean corpuscular hemoglobin concentration (MCHC) determinationOrdered By: Safia Ruelas on 10-22-2024 MCHC (RBC) [Mass/Vol] 32.2 g/dL 32-36 [facility] Mean platelet volume determi nationOrdered By: Safia Ruelas on 10-22-2024 Platelet mean volume (Bld) [Entitic vol] 11.2 fL 6.2-12.0 [facility] Monocyte percentageOrdered B y: Safia Ruelas on 10-22-2024 Monocytes/100 WBC (Bld) 7.7 % 0-[address] [facility] Neutrophil percentageOrdered By: [facility] R[facility] on 10-22-2024 Neutrophils/100 WBC (Bld) 52.1 % 47-70 [facility] Nucleated red blood cell per centageOrdered By: Safia Ruelas on 10-22-2024 Nucleated RBC/100 WBC (Bld) [Ratio] 0 % 0-5 [facility] Platelet countOrdered By: Balbir jean mariejosé antonio Ruelas on 10-22-2024 Platelets (Bld) [#/Vol] 334 10*3/uL 150-450 [facility] Potassium measurement (mass/ volume)Ordered By: Safia Ruelas on 10-22-2024 Potassium (Unsp spec) [Mass/Vol] 3.7 mmol/L 3.3-5.1 [facility] RBC Auto (Bld) [#/Vol]Ordere d By: Safia Ruelas on 10-22-2024 RBC (Bld) [#/Vol] 4.43 10*6/uL 4.2-5.[address] [facility] Serum creatinine measurement (mass/volume)Ordered By: Safia Ruelas on 10-22-2024 Creatinine [Mass/Vol] 0.96 mg/dL 0.70-1.20 [facility] Serum glucose measurement (m ass/volume)Ordered By: Safia Ruelas on 10-22-2024 Glucose [Mass/Vol] 106 mg/dL High 70-99 [facility] Serum or plasma calcium dayna urement (mass/volume)Ordered By: Safia Ruelas on 10-22-2024 Calcium [Mass/Vol] 9.4 mg/dL 7.6-11.0 [facility] Serum or plasma urea nitroge n measurement (mass/volume)Ordered By: Safia Ruelas on 10-22-2024 Urea nitrogen [Mass/Vol] 28 mg/dL High 4-19 [facility] Sodium levelOrdered By: Leonides Ruelas on 10-22-2024 Sodium [Moles/Vol] 138 mmol/L 133-145 [facility] TSH DL <= 0.005 mIU/L QnOrde red By: Safia Ruelas on 10-22-2024 TSH Qn 4.630 uIU/mL High 0.300-4.200 [facility] White blood cell (WBC) count Ordered By: Safia Ruelas on 10-22-2024 WBC (Bld) [#/Vol] 8.8 10*3/uL 4.4-11.0 [facility] Absolute lymphocyte countOrd ered By: Safia Ruelas on 10-15-2024 Lymphocytes Auto (Unsp spec) [#/Vol] 3.04 10*3/uL 0.83-4.51 [facility] Absolute neutrophil countOrd ered By: Safia Ruelas on 10-15-2024 Neutrophils (Bld) [#/Vol] 4.3 10*3/uL 2.0-7.7 [facility] Anion gap in Serum or Plasma Ordered By: Safia Ruelas on 10-15-2024 Anion gap [Moles/Vol] 12 mmol/L 5-15 [facility] Automated lymphocyte count a s percentage of total leukocytesOrdered By: Safia Ruelas on 10-15-2024 Lymphocytes/100 WBC Auto (Unsp spec) 36.7 % 19-41 [facility] BUN/creatinine ratioOrdered By: Safia Ruelas on 10-15-2024 Urea nitrogen/Creatinine [Mass ratio] 36.5 mg/mg High 10-20 [facility] Basophil percentageOrdered B y: Safia Ruelas on 10-15-2024 Basophils/100 WBC (Bld) 0.7 % 0-[address] [facility] Carbon dioxide, total [Moles /volume] in Central venous bloodOrdered By: Safia Ruelas on 10-15-2024 CO2 [Moles/Vol] 25.2 mmol/L 21.0-32.0 [facility] Chloride assayOrdered By: Balbir jean mariejosé antonio Ruelas on 10-15-2024 Chloride [Moles/Vol] 100 mmol/L 98-108 [facility] Eosinophil percentageOrdered By: Leonideskekahaskye Ruelas on 10-15-2024 Eosinophils/100 WBC (Bld) 2.4 % 0-5 [facility] Erythrocyte distribution wid th ratioOrdered By: jean mariekekahaskye Ruelas on 10-15-2024 Erythrocyte distribution width (RBC) [Ratio] 13.5 % 11.6-14.6 [facility] Erythrocyte distribution wid th standard deviationOrdered By: [facility] R[facility] on 10-15-2024 Erythrocyte distribution width (RBC) [Ratio] 45.2 fl High 35.1-43.9 [facility] Glomerular filtration rate ( GFR) estimation/1.73 sq m using serum, plasma, or whole bOrdered By: Safia Ruelas on 10-15-2024 GFR/1.73 sq M.predicted among non-blacks MDRD (S/P/Bld) [Vol rate/Area] 71 mL/min/{1.73_m2} >60 [facility] Comment on above: mL/min/1.73m2 CKD-EP I Creatinine Equation (2020) Hematocrit Auto (Bld) [Volum e fraction]Ordered By: Safia Ruelas on 10-15-2024 Hematocrit (Bld) [Volume fraction] 40.3 % 37-47 [facility] Hemoglobin measurementOrdere d By: Safia Ruelas on 10-15-2024 Hemoglobin (Bld) [Mass/Vol] 13.3 g/dL 12.0-15.0 [facility] Immature granulocytes/100 WB C Auto (Bld)Ordered By: Safia Ruelas on 10-15-2024 Immature granulocytes/100 WBC (Bld) 0.400 % 0.0-0.9 [facility] Comment on above: IG% - Immature Granu locytes (promyelocytes, myelocytes and metamyelocytes) > 1% indicates that a LEFT SHIFT is Present. MCV (mean corpuscular volume ) determinationOrdered By: Safia Ruelas on 10-15-2024 MCV (RBC) [Entitic vol] 91.0 fL 81-[address] [facility] Mean corpuscular hemoglobin (MCH) determinationOrdered By: Safia Ruelas on 10-15-2024 MCH (RBC) [Entitic mass] 30.0 pg 27.0-32.0 [facility] Mean corpuscular hemoglobin concentration (MCHC) determinationOrdered By: Safia Ruelas on 10-15-2024 MCHC (RBC) [Mass/Vol] 33.0 g/dL 32-36 [facility] Mean platelet volume determi nationOrdered By: Safia Ruelas on 10-15-2024 Platelet mean volume (Bld) [Entitic vol] 11.9 fL 6.2-12.0 [facility] Monocyte percentageOrdered B y: Safia Ruelas on 10-15-2024 Monocytes/100 WBC (Bld) 8.2 % 0-[address] [facility] Neutrophil percentageOrdered By: Safia Ruelas on 10-15-2024 Neutrophils/100 WBC (Bld) 51.6 % 47-70 [facility] Nucleated red blood cell per centageOrdered By: Safia Ruelas on 10-15-2024 Nucleated RBC/100 WBC (Bld) [Ratio] 0 % 0-5 [facility] Platelet countOrdered By: Balbir Ruelas on 10-15-2024 Platelets (Bld) [#/Vol] 221 10*3/uL 150-450 [facility] Potassium measurement (mass/ volume)Ordered By: Safia Ruelas on 10-15-2024 Potassium (Unsp spec) [Mass/Vol] 3.8 mmol/L 3.3-5.1 [facility] RBC Auto (Bld) [#/Vol]Ordere d By: Safia Ruelas on 10-15-2024 RBC (Bld) [#/Vol] 4.43 10*6/uL 4.2-5.[address] [facility] Serum creatinine measurement (mass/volume)Ordered By: Safia Ruelas on 10-15-2024 Creatinine [Mass/Vol] 0.83 mg/dL 0.70-1.20 [facility] Serum glucose measurement (m ass/volume)Ordered By: Safia Ruelas on 10-15-2024 Glucose [Mass/Vol] 68 mg/dL Low 70-99 [facility] Serum or plasma calcium dayna urement (mass/volume)Ordered By: Safia Ruelas on 10-15-2024 Calcium [Mass/Vol] 9.3 mg/dL 7.6-11.0 [facility] Serum or plasma urea nitroge n measurement (mass/volume)Ordered By: Safia Ruelas on 10-15-2024 Urea nitrogen [Mass/Vol] 30 mg/dL High 4-19 [facility] Sodium levelOrdered By: Leonides Ruelas on 10-15-2024 Sodium [Moles/Vol] 138 mmol/L 133-145 [facility] White blood cell (WBC) count Ordered By: Safia Ruelas on 10-15-2024 WBC (Bld) [#/Vol] 8.3 10*3/uL 4.4-11.0 [facility] Absolute lymphocyte countOrd ered By: Safia Ruelas on 10-08-2024 Lymphocytes Auto (Unsp spec) [#/Vol] 2.52 10*3/uL 0.83-4.51 [facility] Absolute neutrophil countOrd ered By: Safia Ruelas on 10-08-2024 Neutrophils (Bld) [#/Vol] 4.9 10*3/uL 2.0-7.7 [facility] Anion gap in Serum or Plasma Ordered By: Safia Ruelas on 10-08-2024 Anion gap [Moles/Vol] 14 mmol/L 5-15 [facility] Automated lymphocyte count a s percentage of total leukocytesOrdered By: Safia Ruelas on 10-08-2024 Lymphocytes/100 WBC Auto (Unsp spec) 29.4 % 19-41 [facility] BUN/creatinine ratioOrdered By: Safia Ruelas on 10-08-2024 Urea nitrogen/Creatinine [Mass ratio] 34.1 mg/mg High 10-20 [facility] Basophil percentageOrdered B y: Safia Ruelas on 10-08-2024 Basophils/100 WBC (Bld) 0.7 % 0-1 [facility] Carbon dioxide, total [Moles /volume] in Central venous bloodOrdered By: Safia Ruelas on 10-08-2024 CO2 [Moles/Vol] 24.0 mmol/L 21.0-32.0 [facility] Chloride assayOrdered By: Balbir Ruelas on 10-08-2024 Chloride [Moles/Vol] 100 mmol/L 98-108 [facility] Eosinophil percentageOrdered By: Safia Ruelas on 10-08-2024 Eosinophils/100 WBC (Bld) 2.6 % 0-5 [facility] Erythrocyte distribution wid th ratioOrdered By: Safia Ruelas on 10-08-2024 Erythrocyte distribution width (RBC) [Ratio] 13.2 % 11.6-14.6 [facility] Erythrocyte distribution wid th standard deviationOrdered By: Safia Ruelas on 10-08-2024 Erythrocyte distribution width (RBC) [Ratio] 45.3 fl High 35.1-43.9 [facility] Glomerular filtration rate ( GFR) estimation/1.73 sq m using serum, plasma, or whole bOrdered By: Safia Ruelas on 10-08-2024 GFR/1.73 sq M.predicted among non-blacks MDRD (S/P/Bld) [Vol rate/Area] 65 mL/min/{1.73_m2} >60 [facility] Comment on above: mL/min/1.73m2 CKD-EP I Creatinine Equation (2020) Hematocrit Auto (Bld) [Volum e fraction]Ordered By: Safia Ruelas on 10-08-2024 Hematocrit (Bld) [Volume fraction] 41.7 % 37-47 [facility] Hemoglobin measurementOrdere d By: Safia Ruelas on 10-08-2024 Hemoglobin (Bld) [Mass/Vol] 13.3 g/dL 12.0-15.0 [facility] Immature granulocytes/100 WB C Auto (Bld)Ordered By: jean mariekekahaskye Ruelas on 10-08-2024 Immature granulocytes/100 WBC (Bld) 0.400 % 0.0-0.9 [facility] Comment on above: IG% - Immature Granu locytes (promyelocytes, myelocytes and metamyelocytes) > 1% indicates that a LEFT SHIFT is Present. MCV (mean corpuscular volume ) determinationOrdered By: Safia Ruelas on 10-08-2024 MCV (RBC) [Entitic vol] 92.7 fL 81-[address] [facility] Mean corpuscular hemoglobin (MCH) determinationOrdered By: Safia Ruelas on 10-08-2024 MCH (RBC) [Entitic mass] 29.6 pg 27.0-32.0 [facility] Mean corpuscular hemoglobin concentration (MCHC) determinationOrdered By: Safia Ruelas on 10-08-2024 MCHC (RBC) [Mass/Vol] 31.9 g/dL Low 32-36 [facility] Mean platelet volume determi nationOrdered By: Safia Ruelas on 10-08-2024 Platelet mean volume (Bld) [Entitic vol] 11.0 fL 6.2-12.0 [facility] Monocyte percentageOrdered B y: Safia Ruelas on 10-08-2024 Monocytes/100 WBC (Bld) 9.2 % 0-[address] [facility] Neutrophil percentageOrdered By: Safia Ruelas on 10-08-2024 Neutrophils/100 WBC (Bld) 57.7 % 47-70 [facility] Nucleated red blood cell per centageOrdered By: Safia Ruelas on 10-08-2024 Nucleated RBC/100 WBC (Bld) [Ratio] 0 % 0-5 [facility] Platelet countOrdered By: Balbir Ruelas on 10-08-2024 Platelets (Bld) [#/Vol] 323 10*3/uL 150-450 [facility] Potassium measurement (mass/ volume)Ordered By: Safia Ruelas on 10-08-2024 Potassium (Unsp spec) [Mass/Vol] 4.1 mmol/L 3.3-5.1 [facility] RBC Auto (Bld) [#/Vol]Ordere d By: Safia Ruelas on 10-08-2024 RBC (Bld) [#/Vol] 4.50 10*6/uL 4.2-5.[address] [facility] Serum creatinine measurement (mass/volume)Ordered By: Safia Ruelas on 10-08-2024 Creatinine [Mass/Vol] 0.90 mg/dL 0.70-1.20 [facility] Serum glucose measurement (m ass/volume)Ordered By: Safia Ruelas on 10-08-2024 Glucose [Mass/Vol] 82 mg/dL 70-99 [facility] Serum or plasma calcium dayna urement (mass/volume)Ordered By: Safia Ruelas on 10-08-2024 Calcium [Mass/Vol] 9.6 mg/dL 7.6-11.0 [facility] Serum or plasma urea nitroge n measurement (mass/volume)Ordered By: Safia Ruelas on 10-08-2024 Urea nitrogen [Mass/Vol] 31 mg/dL High 4-19 [facility] Sodium levelOrdered By: Leonides Ruelas on 10-08-2024 Sodium [Moles/Vol] 138 mmol/L 133-145 [facility] White blood cell (WBC) count Ordered By: Safia Ruelas on 10-08-2024 WBC (Bld) [#/Vol] 8.6 10*3/uL 4.4-11.0 [facility] 12 Lead EKG performed by [facility] on 10-02-2024 12 Lead EKG performed by [facility] [address] [place] [address] 12 Lead EKG performed by [facility] 10/02/24920 MR#: [id number] Acct: [id number] Name: LINDSAY ACUNA Rep #: [id number] : 1945 78 From: Mj Benavides MD Attending Dr: Dr. Mj Benavides MD Status: DEP A MB Ordering Dr: Mj Benavides MD Date: 10/02/24 Location: [facility] Sex: F C Admitted: BMS/12 Lead EKG performed by [facility] ECG Report Interpretation ---Atrial fibrillation -irregular conduction -Old anterior infarct. ABNORMAL Electronically signed on 10/02/2024 at 16:06 by Mj Benavides [employer] Software Version 8610 10/02/24 1608 Date Mj Benavides MD CC: Dr. Kameron Caruso MD Date Dictated: 10/02/24920 Date Transcribed: 10/02/24920 Shirt Creaser: [place] Signed Normal [facility] Cardiology Visit Reporton Cardiology Visit Report [facility] [address] [place] [address] OFFICE VISIT Date of Service: 10/02/24 MR#: [id number] Acct: [id number] Name: LINDSAY ACUNA Rep #: [id number] : 1945 Provider: Dr. Mj Benavides MD Age/Sex: 78/F Location: [facility] Status: Signed HPI HPI History of Present [...] d/t W/C bound Intake Visit Reasons: AFIB ([facility]) Water Commissioner Required: No Accompanied by: Significant Other Is [...] normal, nasal (more content not included)... Normal [facility] Absolute lymphocyte countOrd ered By: Safia Ruelas on 10-01-2024 Lymphocytes Auto (Unsp spec) [#/Vol] 2.45 10*3/uL 0.83-4.51 [facility] Absolute neutrophil countOrd ered By: Safia Griderbonimelanie on 10-01-2024 Neutrophils (Bld) [#/Vol] 6.5 10*3/uL 2.0-7.7 [facility] Anion gap in Serum or Plasma Ordered By: Safia Ruelas on 10-01-2024 Anion gap [Moles/Vol] 12 mmol/L 5- [facility] Automated lymphocyte count a s percentage of total leukocytesOrdered By: Safia Ruelas on 10-01-2024 Lymphocytes/100 WBC Auto (Unsp spec) 23.1 % 19- [facility] BUN/creatinine ratioOrdered By: Safia Ruelas on 10-01-2024 Urea nitrogen/Creatinine [Mass ratio] 24.9 mg/mg High 10- [facility] Basophil percentageOrdered B y: Safia Ruelas on 10-01-2024 Basophils/100 WBC (Bld) 0.5 % 0-[address] [facility] Carbon dioxide, total [Moles /volume] in Central venous bloodOrdered By: Safia Ruelas on 10-01-2024 CO2 [Moles/Vol] 24.4 mmol/L 21.0-32.0 [facility] Chloride assayOrdered By: Balbir Ruelas on 10-01-2024 Chloride [Moles/Vol] 99 mmol/L 98-108 [facility] Eosinophil percentageOrdered By: sherry Ruelas on 10-01-2024 Eosinophils/100 WBC (Bld) 2.0 % 0-5 [facility] Erythrocyte distribution wid th ratioOrdered By: Safia Ruelas on 10-01-2024 Erythrocyte distribution width (RBC) [Ratio] 13.5 % 11.6-14.6 [facility] Erythrocyte distribution wid th standard deviationOrdered By: Safia Ruelas on 10-01-2024 Erythrocyte distribution width (RBC) [Ratio] 46.2 fl High 35.1-43.9 [facility] Glomerular filtration rate ( GFR) estimation/1.73 sq m using serum, plasma, or whole bOrdered By: Safia Ruelas on 10-01-2024 GFR/1.73 sq M.predicted among non-blacks MDRD (S/P/Bld) [Vol rate/Area] 63 mL/min/{1.73_m2} >60 [facility] Comment on above: mL/min/1.73m2 CKD-EP I Creatinine Equation (2020) Hematocrit Auto (Bld) [Volum e fraction]Ordered By: Safia Ruelas on 10-01-2024 Hematocrit (Bld) [Volume fraction] 38.7 % 37-47 [facility] Hemoglobin measurementOrdere d By: Safia Ruelas on 10-01-2024 Hemoglobin (Bld) [Mass/Vol] 12.5 g/dL 12.0-15.0 [facility] Immature granulocytes/100 WB C Auto (Bld)Ordered By: Safia Ruelas on 10-01-2024 Immature granulocytes/100 WBC (Bld) 0.800 % 0.0-0.9 [facility] Comment on above: IG% - Immature Granu locytes (promyelocytes, myelocytes and metamyelocytes) > 1% indicates that a LEFT SHIFT is Present. MCV (mean corpuscular volume ) determinationOrdered By: Safia Ruelas on 10-01-2024 MCV (RBC) [Entitic vol] 93.3 fL 81-[address] [facility] Mean corpuscular hemoglobin (MCH) determinationOrdered By: Safia Ruelas on 10-01-2024 MCH (RBC) [Entitic mass] 30.1 pg 27.0-32.0 [facility] Mean corpuscular hemoglobin concentration (MCHC) determinationOrdered By: Leonideskekahaskye Ruelas on 10-01-2024 MCHC (RBC) [Mass/Vol] 32.3 g/dL 32-36 [facility] Mean platelet volume determi nationOrdered By: Safia Ruelas on 10-01-2024 Platelet mean volume (Bld) [Entitic vol] 11.7 fL 6.2-12.0 [facility] Monocyte percentageOrdered B y: Safia Ruelas on 10-01-2024 Monocytes/100 WBC (Bld) 12.7 % High 0-[address] [facility] Neutrophil percentageOrdered By: Safia Cheoquyen on 10-01-2024 Neutrophils/100 WBC (Bld) 60.9 % 47-70 [facility] Nucleated red blood cell per centageOrdered By: Safia Cheoquyen on 10-01-2024 Nucleated RBC/100 WBC (Bld) [Ratio] 0 % 0-5 [facility] Platelet countOrdered By: Balbir sherry Cheoquyen on 10-01-2024 Platelets (Bld) [#/Vol] 371 10*3/uL 150-450 [facility] Potassium measurement (mass/ volume)Ordered By: Safia Griderbonimelanie on 10-01-2024 Potassium (Unsp spec) [Mass/Vol] 4.2 mmol/L 3.3-5.1 [facility] RBC Auto (Bld) [#/Vol]Ordere d By: Safia Ruelas on 10-01-2024 RBC (Bld) [#/Vol] 4.15 10*6/uL Low 4.2-5.[address] [facility] Serum creatinine measurement (mass/volume)Ordered By: aBlbirsherry Griderbonimelanie on 10-01-2024 Creatinine [Mass/Vol] 0.93 mg/dL 0.70-1.20 [facility] Serum glucose measurement (m ass/volume)Ordered By: [...] Urea nitrogen [Mass/Vol] 23 mg/dL High 4-19 [facility] Sodium levelOrdered By: Leonides josé antonio Jessenia on 10-01-2024 Sodium [Moles/Vol] 135 mmol/L 133-145 [facility] White blood cell (WBC) count Ordered By: Leonidesdesireeskye Ruelas on 10-01-2024 WBC (Bld) [#/Vol] 10.6 10*3/uL 4.4-11.[address] [facility] Clostridium difficile detect ion by polymerase chain reactionOrdered By: Safia Ruelas on 09-29-2024 C. difficile DNA CHUCKY+probe Ql (Unsp spec) [facility] Absolute lymphocyte countOrd ered By: Safia Ruelas on 09-24-2024 Lymphocytes Auto (Unsp spec) [#/Vol] 2.72 10*3/uL 0.83-4.51 [facility] Absolute neutrophil countOrd ered By: Safia Griderbonimelanie on 09-24-2024 Neutrophils (Bld) [#/Vol] 6.3 10*3/uL 2.0-7.7 [facility] Anion gap in Serum or Plasma Ordered By: Safia Ruelas on 09-24-2024 Anion gap [Moles/Vol] 12 mmol/L 5-15 [facility] Automated lymphocyte count a s percentage of total leukocytesOrdered By: Safia Ruelas on 09-24-2024 Lymphocytes/100 WBC Auto (Unsp spec) 26.3 % 19-41 [facility] BUN/creatinine ratioOrdered By: Safia Ruelas on 09-24-2024 Urea nitrogen/Creatinine [Mass ratio] 36.4 mg/mg High 10-20 [facility] Basophil percentageOrdered B y: Safia Ruelas on 09-24-2024 Basophils/100 WBC (Bld) 0.7 % 0-1 [facility] Carbon dioxide, total [Moles /volume] in Central venous bloodOrdered By: Safia Ruelas on 09-24-2024 CO2 [Moles/Vol] 24.1 mmol/L 21.0-32.0 [facility] Chloride assayOrdered By: Balbir Ruelas on 09-24-2024 Chloride [Moles/Vol] 100 mmol/L 98-108 [facility] Eosinophil percentageOrdered By: Safia Ruelas on 09-24-2024 Eosinophils/100 WBC (Bld) 2.7 % 0-5 [facility] Erythrocyte distribution wid th ratioOrdered By: Safia Ruelas on 09-24-2024 Erythrocyte distribution width (RBC) [Ratio] 13.6 % 11.6-14.6 [facility] Erythrocyte distribution wid th standard deviationOrdered By: Safia Ruelas on 09-24-2024 Erythrocyte distribution width (RBC) [Ratio] 47.1 fl High 35.1-43.9 [facility] Glomerular filtration rate ( GFR) estimation/1.73 sq m using serum, plasma, or whole bOrdered By: Safia Ruelas on 09-24-2024 GFR/1.73 sq M.predicted among non-blacks MDRD (S/P/Bld) [Vol rate/Area] 62 mL/min/{1.73_m2} >60 [facility] Comment on above: mL/min/1.73m2 CKD-EP I Creatinine Equation (2020) Hematocrit Auto (Bld) [Volum e fraction]Ordered By: Safia Ruelas on 09-24-2024 Hematocrit (Bld) [Volume fraction] 41.2 % 37-47 [facility] Hemoglobin measurementOrdere d By: Safia Ruelas on 09-24-2024 Hemoglobin (Bld) [Mass/Vol] 13.0 g/dL 12.0-15.0 [facility] Immature granulocytes/100 WB C Auto (Bld)Ordered By: Safia Ruelas on 09-24-2024 Immature granulocytes/100 WBC (Bld) 1.000 % High 0.0-0.9 [facility] Comment on above: IG% - Immature Granu locytes (promyelocytes, myelocytes and metamyelocytes) > 1% indicates that a LEFT SHIFT is Present. MCV (mean corpuscular volume ) determinationOrdered By: Safia Ruelas on 09-24-2024 MCV (RBC) [Entitic vol] 94.3 fL 81-[address] [facility] Mean corpuscular hemoglobin (MCH) determinationOrdered By: Safia Ruelas on 09-24-2024 MCH (RBC) [Entitic mass] 29.7 pg 27.0-32.0 [facility] Mean corpuscular hemoglobin concentration (MCHC) determinationOrdered By: Safia Ruelas on 09-24-2024 MCHC (RBC) [Mass/Vol] 31.6 g/dL Low 32-36 [facility] Mean platelet volume determi nationOrdered By: Safia Ruelas on 09-24-2024 Platelet mean volume (Bld) [Entitic vol] 11.3 fL 6.2-12.0 [facility] Monocyte percentageOrdered B y: Safia Ruelas on 09-24-2024 Monocytes/100 WBC (Bld) 8.9 % 0-[address] [facility] Neutrophil percentageOrdered By: Leonideskekahaskye Ruelas on 09-24-2024 Neutrophils/100 WBC (Bld) 60.4 % 47-70 [facility] Nucleated red blood cell per centageOrdered By: Safia Ruelas on 09-24-2024 Nucleated RBC/100 WBC (Bld) [Ratio] 0 % 0-5 [facility] Platelet countOrdered By: Balbir Ruelas on 09-24-2024 Platelets (Bld) [#/Vol] 441 10*3/uL 150-450 [facility] Potassium measurement (mass/ volume)Ordered By: Safia Ruelas on 09-24-2024 Potassium (Unsp spec) [Mass/Vol] 4.3 mmol/L 3.3-5.1 [facility] RBC Auto (Bld) [#/Vol]Ordere d By: Safia Ruelas on 09-24-2024 RBC (Bld) [#/Vol] 4.37 10*6/uL 4.2-5.[address] [facility] Serum creatinine measurement (mass/volume)Ordered By: Safia Ruelas on 09-24-2024 Creatinine [Mass/Vol] 0.93 mg/dL 0.70-1.20 [facility] Serum glucose measurement (m ass/volume)Ordered By: [...] Urea nitrogen [Mass/Vol] 34 mg/dL High 4-19 [facility] Sodium levelOrdered By: Leonides chou Cheobonimelanie on 09-24-2024 Sodium [Moles/Vol] 136 mmol/L 133-145 [facility] White blood cell (WBC) count Ordered By: Safia Ruelas on 09-24-2024 WBC (Bld) [#/Vol] 10.4 10*3/uL 4.4-11.[address] [facility] Absolute lymphocyte countOrd ered By: Safia Ruelas on 09-17-2024 Lymphocytes Auto (Unsp spec) [#/Vol] 2.52 10*3/uL 0.83-4.51 [facility] Absolute neutrophil countOrd ered By: Safia Ruelas on 09-17-2024 Neutrophils (Bld) [#/Vol] 5.8 10*3/uL 2.0-7.7 [facility] Anion gap in Serum or Plasma Ordered By: Safia Ruelas on 09-17-2024 Anion gap [Moles/Vol] 12 mmol/L 5-15 [facility] Automated lymphocyte count a s percentage of total leukocytesOrdered By: Safia Ruelas on 09-17-2024 Lymphocytes/100 WBC Auto (Unsp spec) 26.3 % 19-41 [facility] BUN/creatinine ratioOrdered By: Balbirsherry Ruelas on 09-17-2024 Urea nitrogen/Creatinine [Mass ratio] 45.9 mg/mg High 10-20 [facility] Basophil percentageOrdered B y: Safia Ruelas on 09-17-2024 Basophils/100 WBC (Bld) 0.6 % 0-[address] [facility] Calculated very low density lipoprotein (VLDL) cholesterol measurementOrdered By: Safia Ruelas on 09-17-2024 Calculated very low density lipoprotein (VLDL) cholesterol measurement 22 mg/dL 5-40 [facility] Carbon dioxide, total [Moles /volume] in Central venous bloodOrdered By: Safia Ruelas on 09-17-2024 CO2 [Moles/Vol] 24.5 mmol/L 21.0-32.0 [facility] Chloride assayOrdered By: Balbir Ruelas on 09-17-2024 Chloride [Moles/Vol] 98 mmol/L 98-108 [facility] Eosinophil percentageOrdered By: Safia Ruelas on 09-17-2024 Eosinophils/100 WBC (Bld) 3.2 % 0-5 [facility] Erythrocyte distribution wid th ratioOrdered By: jean mariekekahaskye Ruelas on 09-17-2024 Erythrocyte distribution width (RBC) [Ratio] 13.4 % 11.6-14.6 [facility] Erythrocyte distribution wid th standard deviationOrdered By: Safia Ruelas on 09-17-2024 Erythrocyte distribution width (RBC) [Ratio] 45.4 fl High 35.1-43.9 [facility] Glomerular filtration rate ( GFR) estimation/1.73 sq m using serum, plasma, or whole bOrdered By: Safia Ruelas on 09-17-2024 GFR/1.73 sq M.predicted among non-blacks MDRD (S/P/Bld) [Vol rate/Area] 69 mL/min/{1.73_m2} >60 [facility] Comment on above: mL/min/1.73m2 CKD-EP I Creatinine Equation (2020) Hematocrit Auto (Bld) [Volum e fraction]Ordered By: Safia Ruelas on 09-17-2024 Hematocrit (Bld) [Volume fraction] 38.8 % 37-47 [facility] Hemoglobin measurementOrdere d By: Safia Ruelas on 09-17-2024 Hemoglobin (Bld) [Mass/Vol] 12.6 g/dL 12.0-15.0 [facility] Immature granulocytes/100 WB C Auto (Bld)Ordered By: Safia Ruelas on 09-17-2024 Immature granulocytes/100 WBC (Bld) 0.700 % 0.0-0.9 [facility] Comment on above: IG% - Immature Granu locytes (promyelocytes, myelocytes and metamyelocytes) > 1% indicates that a LEFT SHIFT is Present. LDL calc ser/plasOrdered By: Safia Ruelas on 09-17-2024 Cholesterol in LDL [Mass/Vol] 120 mg/dL [facility] Comment on above: Nqkeybywqh=468-251 m g/dL & Higher Zkxb=893 mg/dL or greater MCV (mean corpuscular volume ) determinationOrdered By: Safia Ruelas on 09-17-2024 MCV (RBC) [Entitic vol] 91.7 fL 81-[address] [facility] Mean corpuscular hemoglobin (MCH) determinationOrdered By: Leonideskekahaskye Ruelas on 09-17-2024 MCH (RBC) [Entitic mass] 29.8 pg 27.0-32.0 [facility] Mean corpuscular hemoglobin concentration (MCHC) determinationOrdered By: Safia Ruelas on 09-17-2024 MCHC (RBC) [Mass/Vol] 32.5 g/dL 32-36 [facility] Mean platelet volume determi nationOrdered By: Safia Ruelas on 09-17-2024 Platelet mean volume (Bld) [Entitic vol] 11.4 fL 6.2-12.0 [facility] Monocyte percentageOrdered B y: Safia Ruelas on 09-17-2024 Monocytes/100 WBC (Bld) 8.5 % 0-[address] [facility] Neutrophil percentageOrdered By: jean mariekekahaskye Ruelas on 09-17-2024 Neutrophils/100 WBC (Bld) 60.7 % 47-70 [facility] Nucleated red blood cell per centageOrdered By: Safia Ruelas on 09-17-2024 Nucleated RBC/100 WBC (Bld) [Ratio] 0 % 0-5 [facility] Platelet countOrdered By: Balbir Ruelas on 09-17-2024 Platelets (Bld) [#/Vol] 311 10*3/uL 150-450 [facility] Potassium measurement (mass/ volume)Ordered By: Safia Ruelas on 09-17-2024 Potassium (Unsp spec) [Mass/Vol] 4.1 mmol/L 3.3-5.1 [facility] RBC Auto (Bld) [#/Vol]Ordere d By: Safia Ruelas on 09-17-2024 RBC (Bld) [#/Vol] 4.23 10*6/uL 4.2-5.[address] [facility] Screening total cholesterol/ high density lipoprotein (HDL) cholesterol ratioOrdered By: Safia Ruelas on 09-17-2024 Cholesterol.total/Alta sterol in HDL [Mass ratio] 5.38 {ratio} [facility] Serum creatinine measurement (mass/volume)Ordered By: Safia Ruelas on 09-17-2024 Creatinine [Mass/Vol] 0.86 mg/dL 0.70-1.20 [facility] Serum glucose measurement (m ass/volume)Ordered By: [...] in HDL [Mass/Vol] 33 mg/dL Low >40 [facility] Comment on above: National Cholesterol Education Program (NCEP) guidelines:<40 mg/dL: Low HDL-cholesterol (major risk factor for CHD)>= 60 mg/dL: High HDL-cholesterol (negative risk factor for CHD)HDL-cholesterol is affected by a number of factors, e.g. smoking, exercise, hormones, sex and age. Serum or plasma cholesterol measurement (mass/volume)Ordered By: Safia Ruelas on 09-17-2024 Cholesterol [Mass/Vol] 175 mg/dL <201 [facility] Comment on above: Cholesterol level, D esirable <200 mg/dLBorderline high cholesterol 200-239 mg/dLHigh cholesterol >=240 mg/dLRecommendations of the NCEP Adult Treatment Panel for the following risk-cutoff thresholds for the [place] population. Serum or plasma urea nitroge n measurement (mass/volume)Ordered By: Safia Ruelas on 09-17-2024 Urea nitrogen [Mass/Vol] 39 mg/dL High 4-19 [facility] Sodium levelOrdered By: Leonides jiméneztadmelanie Ruelas on 09-17-2024 Sodium [Moles/Vol] 134 mmol/L 133-145 [facility] TSH DL <= 0.005 mIU/L QnOrde red By: Safia Ruelas on 09-17-2024 TSH Qn 3.500 uIU/mL 0.300-4.200 [facility] Triglycerides measurementOrd ered By: Safia Ruelas on 09-17-2024 Triglyceride [Mass/Vol] 111 mg/dL <[address] [facility] Comment on above: The drugs N-Acetylcy [...] Auto (Unsp spec) [#/Vol] 2.11 10*3/uL 0.83-4.51 [facility] Absolute neutrophil countOrd ered By: Safia Ruelas on 09-10-2024 Neutrophils (Bld) [#/Vol] 8.1 10*3/uL High 2.0-7.7 [facility] Anion gap in Serum or Plasma Ordered By: Safia Ruelas on 09-10-2024 Anion gap [Moles/Vol] 13 mmol/L 5-15 [facility] Automated lymphocyte count a s percentage of total leukocytesOrdered By: Safia Ruelas on 09-10-2024 Lymphocytes/100 WBC Auto (Unsp spec) 17.9 % Low 19-41 [facility] BUN/creatinine ratioOrdered By: Safia Ruelas on 09-10-2024 Urea nitrogen/Creatinine [Mass ratio] 29.1 mg/mg High 10-20 [facility] Basophil percentageOrdered B y: Safia Ruelas on 09-10-2024 Basophils/100 WBC (Bld) 0.3 % 0-[address] [facility] Bilirubin, totalOrdered By: Safia Cheobonimelanie on 09-10-2024 Bilirubin [Mass/Vol] 0.55 mg/dL 0.00-1.30 [facility] Carbon dioxide, total [Moles /volume] in Central venous bloodOrdered By: Balbirjean mariedesireeskye Griderbonimelanie on 09-10-2024 CO2 [Moles/Vol] 23.6 mmol/L 21.0-32.0 [facility] Chloride assayOrdered By: Balbir sherry Cheobonimelanie on 09-10-2024 Chloride [Moles/Vol] 97 mmol/L Low 98-108 [facility] Eosinophil percentageOrdered By: Safia Ruelas on 09-10-2024 Eosinophils/100 WBC (Bld) 0.5 % 0-5 [facility] Erythrocyte distribution wid th ratioOrdered By: Balbirjean mariejosé antonio Westonmelanie on 09-10-2024 Erythrocyte distribution width (RBC) [Ratio] 13.4 % 11.6-14.6 [facility] Erythrocyte distribution wid th standard deviationOrdered By: Leonidesdesireeskye Griderbonimelanie on 09-10-2024 Erythrocyte distribution width (RBC) [Ratio] 45.2 fl High 35.1-43.9 [facility] Glomerular filtration rate ( GFR) estimation/1.73 sq m using serum, plasma, or whole bOrdered By: Balbirjean mariedesireeskye Griderbonimelanie on 09-10-2024 GFR/1.73 sq M.predicted among non-blacks MDRD (S/P/Bld) [Vol rate/Area] 59 mL/min/{1.73_m2} Low >60 [facility] Comment on above: mL/min/1.73m2 CKD-EP I Creatinine Equation (2020) Hematocrit Auto (Bld) [Volum e fraction]Ordered By: Safia Ruelas on 09-10-2024 Hematocrit (Bld) [Volume fraction] 41.8 % 37-47 [facility] Hemoglobin measurementOrdere d By: Safia Ruelas on 09-10-2024 Hemoglobin (Bld) [Mass/Vol] 13.4 g/dL 12.0-15.0 [facility] Immature granulocytes/100 WB C Auto (Bld)Ordered By: Safia Ruelas on 09-10-2024 Immature granulocytes/100 WBC (Bld) 0.800 % 0.0-0.9 [facility] Comment on above: IG% - Immature Granu locytes (promyelocytes, myelocytes and metamyelocytes) > 1% indicates that a LEFT SHIFT is Present. Laboratory - Chemistry and C hemistry - challengeOrdered By: Safia Ruelas on 09-10-2024 AST [Catalytic activity/Vol] 21 U/L <32 [facility] MCV (mean corpuscular volume ) determinationOrdered By: Safia Ruelas on 09-10-2024 MCV (RBC) [Entitic vol] 92.5 fL 81-[address] [facility] Mean corpuscular hemoglobin (MCH) determinationOrdered By: Safia Ruelas on 09-10-2024 MCH (RBC) [Entitic mass] 29.6 pg 27.0-32.0 [facility] Mean corpuscular hemoglobin concentration (MCHC) determinationOrdered By: Safia Ruelas on 09-10-2024 MCHC (RBC) [Mass/Vol] 32.1 g/dL 32-36 [facility] Mean platelet volume determi nationOrdered By: Safia Ruelas on 09-10-2024 Platelet mean volume (Bld) [Entitic vol] 12.6 fL High 6.2-12.0 [facility] Monocyte percentageOrdered B y: Safia Ruelas on 09-10-2024 Monocytes/100 WBC (Bld) 12.3 % High 0-[address] [facility] Neutrophil percentageOrdered By: Safia Ruelas on 09-10-2024 Neutrophils/100 WBC (Bld) 68.2 % 47-70 [facility] No Panel InformationOrdered By: Safia Ruelas on 09-10-2024 21 U/L <32 [facility] Nucleated red blood cell per centageOrdered By: Safia Ruelas on 09-10-2024 Nucleated RBC/100 WBC (Bld) [Ratio] 0 % 0-5 [facility] Platelet countOrdered By: Balbir Ruelas on 09-10-2024 Platelets (Bld) [#/Vol] 190 10*3/uL 150-450 [facility] Potassium measurement (mass/ volume)Ordered By: Safia Ruelas on 09-10-2024 Potassium (Unsp spec) [Mass/Vol] 4.3 mmol/L 3.3-5.1 [facility] RBC Auto (Bld) [#/Vol]Ordere d By: Safia Ruelas on 09-10-2024 RBC (Bld) [#/Vol] 4.52 10*6/uL 4.2-5.[address] [facility] Serum creatinine measurement (mass/volume)Ordered By: Safia Ruelas on 09-10-2024 Creatinine [Mass/Vol] 0.98 mg/dL 0.70-1.20 [facility] Serum globulin measurementOr dered By: Safia Ruelas on 09-10-2024 Globulin (S) [Mass/Vol] 3.3 g/dL 2.2-4.2 [facility] Serum glucose measurement (m ass/volume)Ordered By: Safia Ruelas on 09-10-2024 Glucose [Mass/Vol] 181 mg/dL High 70-99 [facility] Serum or plasma alanine raymundo otransferase (ALT) measurementOrdered By: Safia Ruelas 09-10-2024 ALT [Catalytic activity/Vol] 26 U/L <35 [facility] Serum or plasma albumin dayna urement (mass/volume)Ordered By: Safia Ruelas 09-10-2024 Albumin [Mass/Vol] 3.4 g/dL 3.4-4.8 [facility] Serum or plasma albumin/glob ulin mass ratioOrdered By: Balbirsherry Ruelas on 09-10-2024 Albumin/Globulin [Mass ratio] 1.0 {ratio} 0.9-2.4 [facility] Serum or plasma alkaline hannah sphatase measurementOrdered By: Balbirsherry Griderbonimelanie on 09-10-2024 ALP [Catalytic activity/Vol] 114 U/L High 35-104 [facility] Serum or plasma calcium dayna urement (mass/volume)Ordered By: Safia Ruelas on 09-10-2024 Calcium [Mass/Vol] 9.3 mg/dL 7.6-11.0 [facility] Serum or plasma urea nitroge n measurement (mass/volume)Ordered By: Balbirsherry Ruelas on 09-10-2024 Urea nitrogen [Mass/Vol] 29 mg/dL High 4-19 [facility] Sodium levelOrdered By: Leonides josé antonio Jessenia on 09-10-2024 Sodium [Moles/Vol] 133 mmol/L 133-145 [facility] Total proteinOrdered By: Augustomelanie ervin Jessenia on 09-10-2024 Protein [Mass/Vol] 6.7 g/dL 5.9-8.4 [facility] White blood cell (WBC) count Ordered By: Balbirjean mariedesireeskye Ruelas on 09-10-2024 WBC (Bld) [#/Vol] 11.8 10*3/uL High 4.4-11.[address] [facility] LABORATORYOrdered By: Abigail Smith on 09-09-2024 Glucose [Mass/Vol] 212 mg/dL High 82 - 115 mg/dL [employer] Work Phone: Glucose [Mass/Vol] 226 mg/dL High 82 - 115 mg/dL [employer] Work Phone: LABORATORYOrdered By: Zoila Zarco on 09-08-2024 Glucose [Mass/Vol] 149 mg/dL High 82 - 115 mg/dL [facility] Work Phone: LABORATORYOrdered By: Rob Palmer on 09-08-2024 Blood Glucose Testing Reason Routine (09/08/24 6:16 PM) [facility] Work Phone: Blood Glucose Testing Reason Routine (09/08/24 11:58 AM) [employer] Work Phone: LABORATORYOrdered By: Rob Pamler on 09-07-2024 Blood Glucose Testing Reason Routine (09/07/24 4:46 PM) [employer] Work Phone: .Auto Diffon 09-03-2024 Basophil, Absolute 0.1 10 3/mcL Normal 0.0-0.3 [facility] Comment on above: Performed By: #### A DIFF, CBC, ANEU, GFR, BMP #### [address] [address] Basophils/100 WBC (Bld) 1.0 % Normal 0.0-2.5 [facility] Comment on above: Performed By: #### A DIFF, CBC, ANEU, GFR, BMP #### [address] [address] Eosinophil, Absolute 0.2 10 3/mcL Normal 0.0-0.7 [facility] Comment on above: Performed By: #### A DIFF, CBC, ANEU, GFR, BMP #### [address] [address] Eosinophils/100 WBC (Bld) 3.2 % Normal 0.0-6.0 [facility] Comment on above: Performed By: #### A DIFF, CBC, ANEU, GFR, BMP #### [address] [address] Lymphocyte, Absolute 2.0 10 3/mcL Normal 0.9-4.3 [facility] Comment on above: Performed By: #### A DIFF, CBC, ANEU, GFR, BMP #### [address] [address] Lymphocytes/100 WBC (Bld) 26.6 % Normal 20.0-40.0 [facility] Comment on above: Performed By: #### A DIFF, CBC, ANEU, GFR, BMP #### [address] [address] Monocyte, Absolute 0.7 10 3/mcL Normal 0.1-1.4 [facility] Comment on above: Performed By: #### A DIFF, CBC, ANEU, GFR, BMP #### [address] [address] Monocytes/100 WBC (Bld) 9.7 % Normal 2.0-13.0 [facility] Comment on above: Performed By: #### A DIFF, CBC, ANEU, GFR, BMP #### [address] [address] Neutrophils/100 WBC (Bld) 59.5 % Normal 50.0-75.0 [facility] Comment on above: Performed By: #### A DIFF, CBC, ANEU, GFR, BMP #### [address] [address] .GFRon 09-03-2024 Estimated Glomerular Filtration Rate 57 ml/min/1.73sqm Normal [facility] Comment on above: Result Comment: Stages [...] A DIFF, CBC, ANEU, GFR, BMP #### [address] [address] .NEUABSon 09-03-2024 Neutrophil, Absolute 4.5 10 3/mcL Normal 2.3-8.1 [facility] Comment on above: Performed By: #### A DIFF, CBC, ANEU, GFR, BMP #### [address] [address] B12on 09-03-2024 Cobalamin (Vitamin B12) [Mass/Vol] 834 pg/mL Normal 211-911 [facility] Comment on above: Performed By: #### A DIFF, CBC, ANEU, GFR, BMP #### [place] [address] CBCon 09-03-2024 Erythrocyte distribution width (RBC) [Ratio] 14.7 % Normal 11.5-15.5 [facility] Comment on above: Performed By: #### A DIFF, CBC, ANEU, GFR, BMP #### [place] [address] Hematocrit (Bld) [Volume fraction] 39.7 % Normal 34.0-46.0 [facility] Comment on above: Performed By: #### A DIFF, CBC, ANEU, GFR, BMP #### [place] [address] Hgb 13.2 G/dL Normal 12.0-16.0 [facility] Comment on above: Performed By: #### A DIFF, CBC, ANEU, GFR, BMP #### [place] [address] MCH (RBC) [Entitic mass] 30.6 pg Normal 27.0-33.0 [facility] Comment on above: Performed By: #### A DIFF, CBC, ANEU, GFR, BMP #### [place] [address] MCHC 33.3 G/dL Normal 32.0-36.0 [facility] Comment on above: Performed By: #### A DIFF, CBC, ANEU, GFR, BMP #### [place] [address] MCV (RBC) [Entitic vol] 91.9 fL Normal 80.0-99.0 [facility] Comment on above: Performed By: #### A DIFF, CBC, ANEU, GFR, BMP #### [place] [id number] Platelet 228 10 3/mcL Normal 150-450 [facility] Comment on above: Performed By: #### A DIFF, CBC, ANEU, GFR, BMP #### [place] [address] Platelet mean volume (Bld) [Entitic vol] 10.1 fL Normal 6.6-10.5 [facility] Comment on above: Performed By: #### A DIFF, CBC, ANEU, GFR, BMP #### [place] [address] RBC 4.32 10 6/mcL Normal 4.10-5.30 [facility] Comment on above: Performed By: #### A DIFF, CBC, ANEU, GFR, BMP #### [place] [address] WBC 7.6 10 3/mcL Normal 4.5-10.8 [facility] Comment on above: Performed By: #### A DIFF, CBC, ANEU, GFR, BMP #### [place] [address] CMPon 09-03-2024 Albumin Level 3.0 G/dL Low 3.2-4.8 [facility] Comment on above: Performed By: #### A DIFF, CBC, ANEU, GFR, BMP #### [place] [address] Albumin/Globulin [Mass ratio] 0.9 {ratio} Normal 0.9-1.6 [facility] Comment on above: Performed By: #### A DIFF, CBC, ANEU, GFR, BMP #### [place] [address] ALP [Catalytic activity/Vol] 115 U/L Normal 38-126 [facility] Comment on above: Performed By: #### A DIFF, CBC, ANEU, GFR, BMP #### [place] [address] ALT [Catalytic activity/Vol] 37 U/L Normal 10-49 [facility] Comment on above: Performed By: #### A DIFF, CBC, ANEU, GFR, BMP #### [place] [address] AST [Catalytic activity/Vol] 31 U/L Normal 8-34 [facility] Comment on above: Performed By: #### A DIFF, CBC, ANEU, GFR, BMP #### [address] [address] Bili Total 0.50 mg/dL Normal 0.20-1.20 [facility] Comment on above: Result Comment: Use of this assay is not recommended for patients undergoing treatment with eltrombopag due to the potential for falsely elevated results. Performed By: #### A DIFF, CBC, ANEU, GFR, BMP #### [place] [address] BUN/Creatinine Ratio 29.7 ratio High 10.0-22.0 [facility] Comment on above: Performed By: #### A DIFF, CBC, ANEU, GFR, BMP #### [place] [id number] Calcium [Mass/Vol] 9.6 mg/dL Normal 8.7-10.4 [facility] Comment on above: Performed By: #### A DIFF, CBC, ANEU, GFR, BMP #### [place] [address] Chloride [Moles/Vol] 101 mmol/L Normal 98-110 [facility] Comment on above: Performed By: #### A DIFF, CBC, ANEU, GFR, BMP #### [place] [address] CO2 [Moles/Vol] 27 mmol/L Normal 22-32 [facility] Comment on above: Performed By: #### A DIFF, CBC, ANEU, GFR, BMP #### [place] [address] Creatinine [Mass/Vol] 1.01 mg/dL Normal 0.50-1.20 [facility] Comment on above: Result Comment: Test ing performed on [employer] analyzer using enzymatic creatinine methodology. Performed By: #### A DIFF, CBC, ANEU, GFR, BMP #### [place] [id number] Electrolyte Balance 10.0 mEq/L Normal 4.0-15.0 [facility] Comment on above: Performed By: #### A DIFF, CBC, ANEU, GFR, BMP #### [place] [id number] Globulin 3.4 G/dL Normal 1.5-3.8 [facility] Comment on above: Performed By: #### A DIFF, CBC, ANEU, GFR, BMP #### [address] [address] Glucose [Mass/Vol] 187 mg/dL High 82-115 [facility] Comment on above: Performed By: #### A DIFF, CBC, ANEU, GFR, BMP #### [address] [address] Potassium [Moles/Vol] 4.6 mmol/L Normal 3.5-5.0 [facility] Comment on above: Performed By: #### A DIFF, CBC, ANEU, GFR, BMP #### [address] [address] Sodium [Moles/Vol] 138 mmol/L Normal 136-145 [facility] Comment on above: Performed By: #### A DIFF, CBC, ANEU, GFR, BMP #### [address] [address] Total Protein 6.4 G/dL Normal 5.7-8.2 [facility] Comment on above: Performed By: #### A DIFF, CBC, ANEU, GFR, BMP #### [address] [address] Urea nitrogen [Mass/Vol] 30.0 mg/dL High 8.0-22.0 [facility] Comment on above: Performed By: #### A DIFF, CBC, ANEU, GFR, BMP #### [address] [address] LABORATORYOrdered By: Ann Carrillo on 09-03-2024 Glucose [Mass/Vol] 270 mg/dL [facility] Work Phone: LABORATORYOrdered By: SYSTEM SYSTEM [...] above: Interpretive Data: T esting performed on [employer] analyzer using enzymatic creatinine methodology. Electrolyte Balance [...] TSHon 09-03-2024 TSH 3.920 mIU/mL Normal 0.550-4.780 [facility] Comment on above: Performed By: #### A DIFF, CBC, ANEU, GFR, BMP #### [place] [address] [address] HEAD OR BRAIN W/O CONTRAS Ton [...] 09/02/2024 3:10:44 PM Ordering Provider: SILVINO PEARL [facility] [place] 08-30-2024 RANDEE Telephone (FAMPWS) LINDSAY ACUNA ([id number]) 1945 F Date Time Provider Department 08/30/24 KAMERON CARUSO During your visit today, we recorded the following information about you: Jaiden Paulino, RN 08/30/2024 9:11 AM Signed Mary[facility]- [facility] reports patient was in [facility] with dx: stroke, and transferred to [facility]. [facility] System on 09/07/24 to home with [facility] SN PT OT ST AND HHAide. Asking if pcp agreeable to follow for C. Please phone Marya with verbal: [phone] Mj Glover APRN.GARRETT 08/30/2024 9:19 AM Signed Please let know that Dr. Caruso's team will follow orders. Okay to proceed. Mj Glover APRN.Fouzia Reynoso LPN 08/30/2024 10:09 AM Signed Marya with [facility] notified. Allergies As of Date: 08/30/2024 Noted Allergy Reaction BENZOCAINE 07/08/2005 2 - Rash COCAINE 05/28/2008 Comments: Inverted T PERFUMES 07/08/2005 12 - Shortness of Breath Comments: coughes and chokes SULFA (SULFONAMIDE ANTIBIOTICS) 07/08/2005 5 - Intolerance Date Reviewed: 06/26/2024 Reviewed by: Bret Arambula LPN - Fully Assessed Reason for Visit: [facility] requesting verbal agree to [...] Status:Closed by FOUZIA MILLER on 08/30/24 Normal [facility] .Auto Diffon 08-26-2024 Basophil, Absolute 0.1 10 3/mcL Normal 0.0-0.3 [facility] Comment on above: Performed By: #### A DIFF, CBC, ANEU, GFR, BMP #### [address] [address] Basophils/100 WBC (Bld) 1.0 % Normal 0.0-2.5 [facility] Comment on above: Performed By: #### A DIFF, CBC, ANEU, GFR, BMP #### [address] [address] Eosinophil, Absolute 0.3 10 3/mcL Normal 0.0-0.7 [facility] Comment on above: Performed By: #### A DIFF, CBC, ANEU, GFR, BMP #### [address] [address] Eosinophils/100 WBC (Bld) 4.2 % Normal 0.0-6.0 [facility] Comment on above: Performed By: #### A DIFF, CBC, ANEU, GFR, BMP #### [address] [address] Lymphocyte, Absolute 2.2 10 3/mcL Normal 0.9-4.3 [facility] Comment on above: Performed By: #### A DIFF, CBC, ANEU, GFR, BMP #### [address] [address] Lymphocytes/100 WBC (Bld) 26.3 % Normal 20.0-40.0 [facility] Comment on above: Performed By: #### A DIFF, CBC, ANEU, GFR, BMP #### [address] [address] Monocyte, Absolute 0.9 10 3/mcL Normal 0.1-1.4 [facility] Comment on above: Performed By: #### A DIFF, CBC, ANEU, GFR, BMP #### [address] [address] Monocytes/100 WBC (Bld) 11.4 % Normal 2.0-13.0 [facility] Comment on above: Performed By: #### A DIFF, CBC, ANEU, GFR, BMP #### [address] [address] Neutrophils/100 WBC (Bld) 57.1 % Normal 50.0-75.0 [facility] Comment on above: Performed By: #### A DIFF, CBC, ANEU, GFR, BMP #### [address] [address] .GFRon 08-26-2024 Estimated Glomerular Filtration Rate 59 ml/min/1.73sqm Normal [facility] Comment on above: Result Comment: Stages [...] A DIFF, CBC, ANEU, GFR, BMP #### [address] [address] .NEUABSon 08-26-2024 Neutrophil, Absolute 4.7 10 3/mcL Normal 2.3-8.1 [facility] Comment on above: Performed By: #### A DIFF, CBC, ANEU, GFR, BMP #### [address] [address] BMPon 08-26-2024 BUN/Creatinine Ratio 35.1 ratio High 10.0-22.0 [facility] Comment on above: Performed By: #### A DIFF, CBC, ANEU, GFR, BMP #### [address] [address] Calcium [Mass/Vol] 9.8 mg/dL Normal 8.7-10.4 [facility] Comment on above: Performed By: #### A DIFF, CBC, ANEU, GFR, BMP #### [address] [address] Chloride [Moles/Vol] 98 mmol/L Normal 98-110 [facility] Comment on above: Performed By: #### A DIFF, CBC, ANEU, GFR, BMP #### [address] [address] CO2 [Moles/Vol] 25 mmol/L Normal 22-32 [facility] Comment on above: Performed By: #### A DIFF, CBC, ANEU, GFR, BMP #### [address] [address] Creatinine [Mass/Vol] 0.97 mg/dL Normal 0.50-1.20 [facility] Comment on above: Result Comment: Test ing performed on [employer] analyzer using enzymatic creatinine methodology. Performed By: #### A DIFF, CBC, ANEU, GFR, BMP #### [address] [address] Electrolyte Balance 12.0 mEq/L Normal 4.0-15.0 [facility] Comment on above: Performed By: #### A DIFF, CBC, ANEU, GFR, BMP #### [address] [address] Glucose [Mass/Vol] 160 mg/dL High 82-115 [facility] MA[facility] Comment on above: Performed By: #### A DIFF, CBC, ANEU, GFR, BMP #### [address] [address] Potassium [Moles/Vol] 4.7 mmol/L Normal 3.5-5.0 [facility] Comment on above: Result Comment: Spec imen slightly hemolyzed. Performed By: #### A DIFF, CBC, ANEU, GFR, BMP #### [address] [address] Sodium [Moles/Vol] 135 mmol/L Low 136-145 [facility] Comment on above: Performed By: #### A DIFF, CBC, ANEU, GFR, BMP #### [place] [address] Urea nitrogen [Mass/Vol] 34.0 mg/dL High 8.0-22.0 [facility] Comment on above: Performed By: #### A DIFF, CBC, ANEU, GFR, BMP #### [place] [address] CBCon 08-26-2024 Erythrocyte distribution width (RBC) [Ratio] 14.0 % Normal 11.5-15.5 [facility] Comment on above: Performed By: #### A DIFF, CBC, ANEU, GFR, BMP #### [place] [address] Hematocrit (Bld) [Volume fraction] 41.0 % Normal 34.0-46.0 [facility] Comment on above: Performed By: #### A DIFF, CBC, ANEU, GFR, BMP #### [place] [address] Hgb 13.4 G/dL Normal 12.0-16.0 [facility] Comment on above: Performed By: #### A DIFF, CBC, ANEU, GFR, BMP #### [place] [address] MCH (RBC) [Entitic mass] 30.0 pg Normal 27.0-33.0 [facility] Comment on above: Performed By: #### A DIFF, CBC, ANEU, GFR, BMP #### [place] [address] MCHC 32.7 G/dL Normal 32.0-36.0 [facility] Comment on above: Performed By: #### A DIFF, CBC, ANEU, GFR, BMP #### [place] [address] MCV (RBC) [Entitic vol] 91.9 fL Normal 80.0-99.0 [facility] Comment on above: Performed By: #### A DIFF, CBC, ANEU, GFR, BMP #### [address] [address] Platelet 297 10 3/mcL Normal 150-450 [facility] Comment on above: Performed By: #### A DIFF, CBC, ANEU, GFR, BMP #### [facility] [address] [place] [address] Platelet mean volume (Bld) [Entitic vol] 11.0 fL High 6.6-10.5 [facility] Comment on above: Performed By: #### A DIFF, CBC, ANEU, GFR, BMP #### [place] [id number] [place] [address] RBC 4.46 10 6/mcL Normal 4.10-5.30 [facility] Comment on above: Performed By: #### A DIFF, CBC, ANEU, GFR, BMP #### [place] [id number] [place] [address] WBC 8.3 10 3/mcL Normal 4.5-10.8 [facility] Comment on above: Performed By: #### A DIFF, CBC, ANEU, GFR, BMP #### [address] [address] LABORATORYOrdered By: SYSTEM SYSTEM on 08-26-2024 Basophils [...] above: Interpretive Data: T esting performed on [employer] analyzer using enzymatic creatinine methodology. Electrolyte Balance [...] [facility] AND WRIST 6 [...] Date: 08/25/2024 2:27:26 PM Ordering Provider: [facility] MAIN XR HUMERUS MINIMUM 2 [...] Date: 08/25/2024 2:26:11 PM Ordering Provider: [facility] MAIN XR SHOULDER MINIMUM 2 [...] Sign Date: 08/25/2024 2:26:45 PM Ordering Provider: [facility] MAIN LABORATORYOrdered By: Kala lux on 08-23-2024 Glucose [Mass/Vol] 278 mg/dL [facility] [place] Work Phone: LABORATORYOrdered By: aKla lux on 08-22-2024 Glucose [Mass/Vol] 320 mg/dL [facility] [place] Work Phone: A1Con 08-21-2024 Glucose [Mass/Vol] 194 mg/dL Normal [facility] MAIN Comment on above: Result Comment: Nancy mated Average Glucose calculated by equation ((28.7xA1C)-46.7) Estimated average glucose (eAG) is a calculated value from Hemoglobin A1C and is solar sales representative and assessor of the average blood glucose level in the last 2-3 month period. Normal range: less than 114 mg/dL Performed By: #### A 1C #### [address] [address] HbA1c (Bld) [Mass fraction] 8.4 % High 4.0-6.0 [facility] Comment on above: Performed By: #### A 1C #### [address] [address] LABORATORYOrdered By: SYSTEM SYSTEM on 08-21-2024 Glucose [Mass/Vol] 194 mg/dL Invalid Interpretation Code Auto Chem SS Comment on above: Interpretive Data: E stimated average glucose (eAG) is a calculated value from Hemoglobin A1C and is solar sales representative and assessor of the average blood glucose level in the last 2-3 month period. Normal range: less than 114 mg/dL HbA1c (Bld) [Mass fraction] 8.4 % High 4.0 - 6.0 % Auto Chem SS .Auto Diffon 08-20-2024 Basophil, Absolute 0.1 10 3/mcL Normal 0.0-0.3 [facility] Comment on above: Performed By: #### B MP, ADIFF, CBC, GFR, ANEU #### [address] [address] Basophils/100 WBC (Bld) 1.1 % Normal 0.0-2.5 [facility] Comment on above: Performed By: #### B MP, ADIFF, CBC, GFR, ANEU #### [address] [address] Eosinophil, Absolute 0.3 10 3/mcL Normal 0.0-0.7 [facility] Comment on above: Performed By: #### B MP, ADIFF, CBC, GFR, ANEU #### [address] [address] Eosinophils/100 WBC (Bld) 3.6 % Normal 0.0-6.0 [facility] Comment on above: Performed By: #### B MP, ADIFF, CBC, GFR, ANEU #### [address] [address] Lymphocyte, Absolute 1.7 10 3/mcL Normal 0.9-4.3 [facility] Comment on above: Performed By: #### B MP, ADIFF, CBC, GFR, ANEU #### [address] [address] Lymphocytes/100 WBC (Bld) 20.8 % Normal 20.0-40.0 [facility] Comment on above: Performed By: #### B MP, ADIFF, CBC, GFR, ANEU #### [address] [address] Monocyte, Absolute 0.9 10 3/mcL Normal 0.1-1.4 [facility] Comment on above: Performed By: #### B MP, ADIFF, CBC, GFR, ANEU #### [address] [address] Monocytes/100 WBC (Bld) 11.4 % Normal 2.0-13.0 [facility] Comment on above: Performed By: #### B MP, ADIFF, CBC, GFR, ANEU #### [address] [address] Neutrophils/100 WBC (Bld) 63.1 % Normal 50.0-75.0 [facility] Comment on above: Performed By: #### B MP, ADIFF, CBC, GFR, ANEU #### [address] [address] .GFRon 08-20-2024 Estimated Glomerular Filtration Rate 55 ml/min/1.73sqm Normal [facility] Comment on above: Result Comment: Stages [...] A DIFF, CBC, ANEU, GFR, BMP #### [address] [address] .NEUABSon 08-20-2024 Neutrophil, Absolute 5.1 10 3/mcL Normal 2.3-8.1 [facility] Comment on above: Performed By: #### B MP, ADIFF, CBC, GFR, ANEU #### [address] [address] BMPon 08-20-2024 BUN/Creatinine Ratio 29.8 ratio High 10.0-22.0 [facility] Comment on above: Performed By: #### B MP, ADIFF, CBC, GFR, ANEU #### [address] [address] Calcium [Mass/Vol] 9.8 mg/dL Normal 8.7-10.4 [facility] Comment on above: Performed By: #### B MP, ADIFF, CBC, GFR, ANEU #### [address] [address] Chloride [Moles/Vol] 95 mmol/L Low 98-110 [facility] Comment on above: Performed By: #### B MP, ADIFF, CBC, GFR, ANEU #### [address] [address] CO2 [Moles/Vol] 34 mmol/L High 22-32 [facility] Comment on above: Performed By: #### B MP, ADIFF, CBC, GFR, ANEU #### [address] [address] Creatinine [Mass/Vol] 1.04 mg/dL Normal 0.50-1.20 [facility] MAIN Comment on above: Result Comment: Test ing performed on [employer] analyzer using enzymatic creatinine methodology. Performed By: #### B MP, ADIFF, CBC, GFR, ANEU #### [place] [id number] Electrolyte Balance 5.0 mEq/L Normal 4.0-15.0 [facility] Comment on above: Performed By: #### B MP, ADIFF, CBC, GFR, ANEU #### [address] [address] Glucose [Mass/Vol] 244 mg/dL High 82-115 [facility] Comment on above: Performed By: #### B MP, ADIFF, CBC, GFR, ANEU #### [place] [id number] Potassium [Moles/Vol] 4.8 mmol/L Normal 3.5-5.0 [facility] Comment on above: Result Comment: Spec imen slightly hemolyzed. Performed By: #### B MP, ADIFF, CBC, GFR, ANEU #### [place] [id number] Sodium [Moles/Vol] 134 mmol/L Low 136-145 [facility] Comment on above: Performed By: #### B MP, ADIFF, CBC, GFR, ANEU #### [place] [id number] Urea nitrogen [Mass/Vol] 31.0 mg/dL High 8.0-22.0 [facility] Comment on above: Performed By: #### B MP, ADIFF, CBC, GFR, ANEU #### [address] [address] CBCon 08-20-2024 Erythrocyte distribution width (RBC) [Ratio] 14.0 % Normal 11.5-15.5 [facility] Comment on above: Performed By: #### B MP, ADIFF, CBC, GFR, ANEU #### [place] [id number] Hematocrit (Bld) [Volume fraction] 41.9 % Normal 34.0-46.0 [facility] Comment on above: Performed By: #### B MP, ADIFF, CBC, GFR, ANEU #### [place] [address] Hgb 13.6 G/dL Normal 12.0-16.0 [facility] Comment on above: Performed By: #### B MP, ADIFF, CBC, GFR, ANEU #### [place] [address] MCH (RBC) [Entitic mass] 29.7 pg Normal 27.0-33.0 [facility] Comment on above: Performed By: #### B MP, ADIFF, CBC, GFR, ANEU #### [place] [address] MCHC 32.4 G/dL Normal 32.0-36.0 [facility] Comment on above: Performed By: #### B MP, ADIFF, CBC, GFR, ANEU #### [place] [address] MCV (RBC) [Entitic vol] 91.5 fL Normal 80.0-99.0 [facility] Comment on above: Performed By: #### B MP, ADIFF, CBC, GFR, ANEU #### [place] [address] Platelet 301 10 3/mcL Normal 150-450 [facility] Comment on above: Performed By: #### B MP, ADIFF, CBC, GFR, ANEU #### [place] [address] Platelet mean volume (Bld) [Entitic vol] 11.0 fL High 6.6-10.5 [facility] Comment on above: Performed By: #### B MP, ADIFF, CBC, GFR, ANEU #### [place] [address] RBC 4.58 10 6/mcL Normal 4.10-5.30 [facility] Comment on above: Performed By: #### B MP, ADIFF, CBC, GFR, ANEU #### [place] [address] WBC 8.1 10 3/mcL Normal 4.5-10.8 [facility] Comment on above: Performed By: #### B MP, ADIFF, CBC, GFR, ANEU #### [place] [id number] [place] [address] LABORATORYOrdered By: SYSTEM SYSTEM on 08-20-2024 Basophils [...] above: Interpretive Data: T esting performed on [employer] analyzer using enzymatic creatinine methodology. Electrolyte Balance [...] PM Ordering Provider: NANDO Anderson [facility] .Auto Diffon 08-16-2024 Basophil, Absolute 0.1 10 3/mcL Normal 0.0-0.3 [facility] Comment on above: Performed By: #### A DIFF, CBC, ANEU, GFR, BMP #### [address] [address] Basophils/100 WBC (Bld) 0.7 % Normal 0.0-2.5 [facility] Comment on above: Performed By: #### A DIFF, CBC, ANEU, GFR, BMP #### [address] [address] Eosinophil, Absolute 0.3 10 3/mcL Normal 0.0-0.7 [facility] Comment on above: Performed By: #### A DIFF, CBC, ANEU, GFR, BMP #### [address] [address] Eosinophils/100 WBC (Bld) 2.1 % Normal 0.0-6.0 [facility] Comment on above: Performed By: #### A DIFF, CBC, ANEU, GFR, BMP #### [address] [address] Lymphocyte, Absolute 1.9 10 3/mcL Normal 0.9-4.3 [facility] Comment on above: Performed By: #### A DIFF, CBC, ANEU, GFR, BMP #### [address] [address] Lymphocytes/100 WBC (Bld) 14.8 % Low 20.0-40.0 [facility] Comment on above: Performed By: #### A DIFF, CBC, ANEU, GFR, BMP #### [address] [address] Monocyte, Absolute 1.2 10 3/mcL Normal 0.1-1.4 [facility] Comment on above: Performed By: #### A DIFF, CBC, ANEU, GFR, BMP #### [address] [address] Monocytes/100 WBC (Bld) 9.8 % Normal 2.0-13.0 [facility] Comment on above: Performed By: #### A DIFF, CBC, ANEU, GFR, BMP #### [address] [address] Neutrophils/100 WBC (Bld) 72.6 % Normal 50.0-75.0 [facility] Comment on above: Performed By: #### A DIFF, CBC, ANEU, GFR, BMP #### [address] [address] .GFRon 08-16-2024 Estimated Glomerular Filtration Rate 58 ml/min/1.73sqm Normal [facility] Comment on above: Result Comment: Stages [...] A DIFF, CBC, ANEU, GFR, BMP #### [address] [address] .NEUABSon 08-16-2024 Neutrophil, Absolute 9.2 10 3/mcL High 2.3-8.1 [facility] Comment on above: Performed By: #### A DIFF, CBC, ANEU, GFR, BMP #### [place] [address] BMPon 08-16-2024 BUN/Creatinine Ratio 34.3 ratio High 10.0-22.0 [facility] Comment on above: Performed By: #### A DIFF, CBC, ANEU, GFR, BMP #### [place] [address] Calcium [Mass/Vol] 9.0 mg/dL Normal 8.7-10.4 [facility] Comment on above: Performed By: #### A DIFF, CBC, ANEU, GFR, BMP #### [place] [address] Chloride [Moles/Vol] 100 mmol/L Normal 98-110 [facility] Comment on above: Performed By: #### A DIFF, CBC, ANEU, GFR, BMP #### [place] [address] CO2 [Moles/Vol] 30 mmol/L Normal 22-32 [facility] Comment on above: Performed By: #### A DIFF, CBC, ANEU, GFR, BMP #### [place] [address] Creatinine [Mass/Vol] 0.99 mg/dL Normal 0.50-1.20 [facility] Comment on above: Result Comment: Test ing performed on [employer] analyzer using enzymatic creatinine methodology. Performed By: #### A DIFF, CBC, ANEU, GFR, BMP #### [place] [id number] Electrolyte Balance 5.0 mEq/L Normal 4.0-15.0 [facility] Comment on above: Performed By: #### A DIFF, CBC, ANEU, GFR, BMP #### [address] [address] Glucose [Mass/Vol] 259 mg/dL High 82-115 [facility] Comment on above: Performed By: #### A DIFF, CBC, ANEU, GFR, BMP #### [address] [address] Potassium [Moles/Vol] 5.0 mmol/L Normal 3.5-5.0 [facility] Comment on above: Performed By: #### A DIFF, CBC, ANEU, GFR, BMP #### [address] [address] Sodium [Moles/Vol] 135 mmol/L Low 136-145 [facility] Comment on above: Performed By: #### A DIFF, CBC, ANEU, GFR, BMP #### [place] [id number] Urea nitrogen [Mass/Vol] 34.0 mg/dL High 8.0-22.0 [facility] Comment on above: Performed By: #### A DIFF, CBC, ANEU, GFR, BMP #### [place] [id number] CBCon 08-16-2024 Erythrocyte distribution width (RBC) [Ratio] 13.7 % Normal 11.5-15.5 [facility] Comment on above: Performed By: #### A DIFF, CBC, ANEU, GFR, BMP #### [place] [id number] Hematocrit (Bld) [Volume fraction] 43.3 % Normal 34.0-46.0 [facility] Comment on above: Performed By: #### A DIFF, CBC, ANEU, GFR, BMP #### [place] [id number] Hgb 13.9 G/dL Normal 12.0-16.0 [facility] Comment on above: Performed By: #### A DIFF, CBC, ANEU, GFR, BMP #### [place] [id number] MCH (RBC) [Entitic mass] 30.0 pg Normal 27.0-33.0 [facility] Comment on above: Performed By: #### A DIFF, CBC, ANEU, GFR, BMP #### [place] [address] MCHC 32.1 G/dL Normal 32.0-36.0 [facility] Comment on above: Performed By: #### A DIFF, CBC, ANEU, GFR, BMP #### [place] [address] MCV (RBC) [Entitic vol] 93.6 fL Normal 80.0-99.0 [facility] Comment on above: Performed By: #### A DIFF, CBC, ANEU, GFR, BMP #### [place] [address] Platelet 230 10 3/mcL Normal 150-450 [facility] Comment on above: Performed By: #### A DIFF, CBC, ANEU, GFR, BMP #### [place] [address] Platelet mean volume (Bld) [Entitic vol] 10.7 fL High 6.6-10.5 [facility] Comment on above: Performed By: #### A DIFF, CBC, ANEU, GFR, BMP #### [place] [address] RBC 4.63 10 6/mcL Normal 4.10-5.30 [facility] Comment on above: Performed By: #### A DIFF, CBC, ANEU, GFR, BMP #### [place] [address] WBC 12.7 10 3/mcL High 4.5-10.8 [facility] Comment on above: Performed By: #### A DIFF, CBC, ANEU, GFR, BMP #### [place] [address] LABORATORYOrdered By: Marily Panda on 08-16-2024 Blood Glucose Interventions Administered agent to decrease blood sugar (08/16/24 12:23 PM) [employer] Work Phone: Blood Glucose Interventions Retest (08/16/24 10:15 AM) [employer] Work Phone: Bacteria identified Cx Nom ( Bld)on 08-15-2024 Bacteria identified Cx Nom (Unsp spec) NO GROWTH DAY 5 OF 5 [facility] CARDIAC RHYTHMon 08-15-2024 [facility] CBC,PLATELETSon 08-15-2024 Erythrocyte distribution width (RBC) [Ratio] 13.4 % 10.8 - 14.9 % [facility] Hematocrit (Bld) [Volume fraction] 43.8 % 34.9 - 44.3 % [facility] Hemoglobin (Bld) [Mass/Vol] 13.5 g/dL 11.4 - 15.2 g/dL [facility] Interpretation and review of laboratory results Abnormal [facility] MCH (RBC) [Entitic mass] 28.9 pg 25.9 - 33.9 pg [facility] MCHC (RBC) [Mass/Vol] 30.8 g/dL Low 31.4 - 35.9 g/dL [facility] MCV (RBC) [Entitic vol] 93.8 fL 79.6 - 97.7 fL [facility] Platelet mean volume (Bld) [Entitic vol] 12 fL 8.5 - 12.2 fL [facility] Platelets (Bld) [#/Vol] 252 10*3/uL 150 - 393 K/uL [facility] RBC (Bld) [#/Vol] 4.67 10*6/uL [facility] WBC (Bld) [#/Vol] 11.94 10*3/uL High 3.99 - 11.19 K/uL [facility] Hematocrit (Bld) [Volume fraction] 43.8 % Normal 34.9-44.3 [facility] Comment on above: Performed By: #### X M #### [facility] (DEFAULT) [address] [address] Hemoglobin (Bld) [Mass/Vol] 13.5 g/dL Normal 11.4-15.2 [facility] Comment on above: Performed By: #### X M #### [facility] (DEFAULT) [address] [place] [address] MCV (RBC) [Entitic vol] 93.8 fL Normal 79.6-97.7 O [facility] Comment on above: Performed By: #### X M #### [facility] (DEFAULT) [address] [address] Mean Cell Hgb 28.9 pg Normal 25.9-33.9 [facility] Comment on above: Performed By: #### X M #### [facility] (DEFAULT) [address] [address] Mean Cell Hgb Conc 30.8 g/dL Low 31.4-35.9 [facility] Comment on above: Performed By: #### X M #### [facility] (DEFAULT) [address] [address] Platelet mean volume (Bld) [Entitic vol] 12.0 fL Normal 8.5-12.2 [facility] Comment on above: Performed By: #### X M #### [facility] (DEFAULT) [address] [address] Platelets (Bld) [#/Vol] 252 10*3/uL Normal 150-393 [facility] Comment on above: Performed By: #### X M #### [facility] [place] (DEFAULT) [address] [place] [id number] RBC (Bld) [#/Vol] 4.67 10*6/uL Normal 3.91-5.04 [facility] Comment on above: Performed By: #### X M #### [facility] [place] (DEFAULT) [address] [address] RBC Distribution 13.4 % Normal 10.8-14.9 [facility] Comment on above: Performed By: #### X M #### [facility] (DEFAULT) [address] [place] [address] WBC (Bld) [#/Vol] 11.94 10*3/uL High 3.99-11.19 [facility] Comment on above: Performed By: #### X M #### [facility] (DEFAULT) [address] [place] [address] CHEM 7 (LYTES,BUN,CREA,GLUC) on 08-15-2024 Anion gap [Moles/Vol] 16 mmol/L 7 - 17 mmol/L [facility] Chloride [Moles/Vol] 99 mmol/L 98 - 10 8 mmol/L [facility] CO2 [Moles/Vol] 25 mmol/L 21 - 31 mmol/L [facility] Creatinine [Mass/Vol] 1.27 mg/dL High 0.50 - 1.20 mg/dL [facility] eGFR, CKD-EPI, Female 43 Low - PINF [facility] Glucose [Mass/Vol] 214 mg/dL High 70 - 179 mg/dL [facility] Interpretation and review of laboratory results Abnormal [facility] Osmolality Calc [Osmolality] 306 High [facility] Potassium [Moles/Vol] 4.8 mmol/L 3.5 - 5.0 mmol/L [facility] Sodium [Moles/Vol] 135 mmol/L 135 - 145 mmol/L [facility] Urea nitrogen [Mass/Vol] 51 mg/dL High 7 - 25 mg/dL [facility] Urea nitrogen/Creatinine [Mass ratio] 40 mg/mg [facility] Anion gap [Moles/Vol] 16 mmol/L Normal 7-17 [facility] Comment on above: Performed By: #### [facility] #### [facility] (DEFAULT) [address] [place] [address] Chloride [Moles/Vol] 99 mmol/L Normal 98-108 [facility] Comment on above: Performed By: #### H EMOGC #### [facility] (DEFAULT) [address] [place] [address] CO2 [Moles/Vol] 25 mmol/L Normal 21-31 [facility] Comment on above: Performed By: #### H EMOGC #### [facility] (DEFAULT) [address] [place] [address] Creatinine [Mass/Vol] 1.27 mg/dL High 0.50-1.20 [facility] Comment on above: Performed By: #### H EMOGC #### [facility] (DEFAULT) [address] [place] [address]273 GFR/1.73 sq M.predicted among non-blacks MDRD (S/P/Bld) [Vol rate/Area] 43 mL/min/{1.73_m2} Low >=60 [facility] Comment on above: Result Comment: Repo rted eGFR is based on the CKD-EPI 2020 equation using creatinine, age, and sex. Performed By: #### H EMO #### [facility] (DEFAULT) [address] [place] [address] Glucose [Mass/Vol] 214 mg/dL High Nonfastin -179 mg/dL; Fastin-99 [facility] Comment on above: Performed By: #### H EMO #### [facility] (DEFAULT) [address] [place] [address] Osmolality [Osmolality] 306 mosm/kg High 278-305 [facility] Comment on above: Performed By: #### H EMOGC #### [facility] (DEFAULT) [address] [place] [address] Potassium [Moles/Vol] 4.8 mmol/L Normal 3.5-5.0 [facility] Comment on above: Performed By: #### H EMOGC #### [facility] (DEFAULT) [address] [place] [address] Sodium [Moles/Vol] 135 mmol/L Normal 135-145 [facility] Comment on above: Performed By: #### H EMOGC #### [facility] (DEFAULT) [address] [place] [address] Urea nitrogen [Mass/Vol] 51 mg/dL High 7-25 [facility] Comment on above: Performed By: #### [facility] #### [facility] (DEFAULT) [address] [place] [address] Urea nitrogen/Creatinine [Mass ratio] 40 mg/mg Normal [facility] Comment on above: Performed By: #### [facility] #### [facility] (DEFAULT) [address] [place] [address] GLUCOSE POCon 08-15-2024 Glucose [Mass/Vol] 190 mg/dL High 70 - 179 mg/dL [facility] Interpretation and review of laboratory results Abnormal [facility] POC Sample Type CAPBL [facility] Glucose [Mass/Vol] 146 mg/dL 70 - 179 mg/dL [facility] POC Sample Type CAPBL [facility] Glucose [Mass/Vol] 215 mg/dL High 70 - 179 mg/dL [facility] Interpretation and review of laboratory results Abnormal [facility] POC Sample Type CAPBL [facility] MAGNESIUMon 08-15-2024 Interpretation and review of laboratory results Normal [facility] Magnesium [Mass/Vol] 1.6 mg/dL 1.6 - 2 .6 mg/dL [facility] Magnesium [Mass/Vol] 1.6 mg/dL Normal 1.6-2.6 [facility] Comment on above: Performed By: #### [facility] #### [facility] (DEFAULT) [address] [place] [address] No Panel Informationon 08-15 [facility] CBC,PLATELETSon 08-14-2024 Erythrocyte distribution width (RBC) [Ratio] 13.4 % 10.8 - 14.9 % [facility] Hematocrit (Bld) [Volume fraction] 47.9 % High 34.9 - 44.3 % [facility] Hemoglobin (Bld) [Mass/Vol] 14.3 g/dL 11.4 - 15.2 g/dL [facility] Interpretation and review of laboratory results Abnormal [facility] MCH (RBC) [Entitic mass] 29.3 pg 25.9 - 33.9 pg [facility] MCHC (RBC) [Mass/Vol] 29.9 g/dL Low 31.4 - 35.9 g/dL [facility] MCV (RBC) [Entitic vol] 98.2 fL High 79.6 - 97.7 fL [facility] Platelet mean volume (Bld) [Entitic vol] 11.3 fL 8.5 - 12.2 fL [facility] Platelets (Bld) [#/Vol] 229 10*3/uL 150 - 393 K/uL [facility] RBC (Bld) [#/Vol] 4.88 10*6/uL [facility] WBC (Bld) [#/Vol] 12.14 10*3/uL High 3.99 - 11.19 K/uL [facility] Hematocrit (Bld) [Volume fraction] 47.9 % High 34.9-44.3 [facility] Comment on above: Performed By: #### X M #### [facility] (DEFAULT) [address] [address] Hemoglobin (Bld) [Mass/Vol] 14.3 g/dL Normal 11.4-15.2 [facility] Comment on above: Performed By: #### X M #### [facility] (DEFAULT) [address] [address] MCV (RBC) [Entitic vol] 98.2 fL High 79.6-97.7 O [facility] Comment on above: Performed By: #### X M #### [facility] (DEFAULT) [address] [place] [address] 57656 Mean Cell Hgb 29.3 pg Normal 25.9-33.9 [facility] Comment on above: Performed By: #### X M #### [facility] (DEFAULT) [address] [place] [address] 19124 Mean Cell Hgb Conc 29.9 g/dL Low 31.4-35.9 [facility] Comment on above: Performed By: #### X M #### [facility] (DEFAULT) [address] [place] [address] 11429 Platelet mean volume (Bld) [Entitic vol] 11.3 fL Normal 8.5-12.2 [facility] Comment on above: Performed By: #### X M #### [facility] (DEFAULT) [address] [place] [address] 8[address] Platelets (Bld) [#/Vol] 229 10*3/uL Normal 150-393 [facility] Comment on above: Performed By: #### X M #### [facility] (DEFAULT) [address] [place] [address] 46348 RBC (Bld) [#/Vol] 4.88 10*6/uL Normal 3.91-5.04 [facility] Comment on above: Performed By: #### X M #### [facility] (DEFAULT) [address] [place] [address]59 RBC Distribution 13.4 % Normal 10.8-14.9 [facility] Comment on above: Performed By: #### X M #### [facility] (DEFAULT) [address] [place] [address] WBC (Bld) [#/Vol] 12.14 10*3/uL High 3.99-11.19 [facility] Comment on above: Performed By: #### X M #### [facility] (DEFAULT) [address] [place] [address] CHEM 7 (LYTES,BUN,CREA,GLUC) on 08-14-2024 Anion gap [Moles/Vol] 16 mmol/L 7 - 17 mmol/L [facility] Chloride [Moles/Vol] 101 mmol/L 98 - 10 8 mmol/L [facility] CO2 [Moles/Vol] 23 mmol/L 21 - 31 mmol/L [facility] Creatinine [Mass/Vol] 1.15 mg/dL 0.50 - 1.20 mg/dL [facility] eGFR, CKD-EPI, Female 48 Low - PINF [facility] Glucose [Mass/Vol] 208 mg/dL High 70 - 179 mg/dL [facility] Interpretation and review of laboratory results Abnormal [facility] Osmolality Calc [Osmolality] 304 [facility] Potassium [Moles/Vol] 4.7 mmol/L 3.5 - 5.0 mmol/L [facility] Sodium [Moles/Vol] 135 mmol/L 135 - 145 mmol/L [facility] Urea nitrogen [Mass/Vol] 47 mg/dL High 7 - 25 mg/dL [facility] Urea nitrogen/Creatinine [Mass ratio] 41 mg/mg [facility] Anion gap [Moles/Vol] 16 mmol/L Normal 7-17 [facility] Comment on above: Performed By: #### B LDCULT #### [facility] (DEFAULT) [address] [place] [address] Chloride [Moles/Vol] 101 mmol/L Normal 98-108 [facility] Comment on above: Performed By: #### B LDCULT #### [facility] (DEFAULT) [address] [place] [address] CO2 [Moles/Vol] 23 mmol/L Normal 21-31 [facility] Comment on above: Performed By: #### B LDCULT #### [facility] (DEFAULT) [address] [place] [address] Creatinine [Mass/Vol] 1.15 mg/dL Normal 0.50-1.20 [facility] Comment on above: Performed By: #### B LDCULT #### [facility] (DEFAULT) [address] [place] [address] 43008 GFR/1.73 sq M.predicted among non-blacks MDRD (S/P/Bld) [Vol rate/Area] 48 mL/min/{1.73_m2} Low >=60 [facility] Comment on above: Result Comment: Repo rted eGFR is based on the CKD-EPI 2020 equation using creatinine, age, and sex. Performed By: #### B LDCULT #### [facility] (DEFAULT) [address] [place] [address]858 Glucose [Mass/Vol] 208 mg/dL High Nonfastin -179 mg/dL; Fastin-99 [facility] Comment on above: Performed By: #### B LDCULT #### [facility] (DEFAULT) [address] [place] [address]49 Osmolality [Osmolality] 304 mosm/kg Normal 278-305 [facility] Comment on above: Performed By: #### B LDCULT #### [facility] (DEFAULT) [address] [place] [address] 34114 Potassium [Moles/Vol] 4.7 mmol/L Normal 3.5-5.0 [facility] Comment on above: Performed By: #### B LDCULT #### [facility] (DEFAULT) [address] [place] [address] 17284 Sodium [Moles/Vol] 135 mmol/L Normal 135-145 [facility] Comment on above: Performed By: #### B LDCULT #### [facility] (DEFAULT) [address] [place] [address] 97942 Urea nitrogen [Mass/Vol] 47 mg/dL High 7-25 [facility] Comment on above: Performed By: #### B LDCULT #### [facility] (DEFAULT) [address] [place] [address] 94986 Urea nitrogen/Creatinine [Mass ratio] 41 mg/mg Normal [facility] Comment on above: Performed By: #### B LDCULT #### [facility] (DEFAULT) [address] [place] [address] 99933 GLUCOSE POCon 08-14-2024 Glucose [Mass/Vol] 204 mg/dL High 70 - 179 mg/dL [facility] Interpretation and review of laboratory results Abnormal [facility] POC Sample Type CAPBL [facility] Glucose [Mass/Vol] 264 mg/dL High 70 - 179 mg/dL [facility] Interpretation and review of laboratory results Abnormal [facility] POC Sample Type CAPBL [facility] Glucose [Mass/Vol] 189 mg/dL High 70 - 179 mg/dL [facility] Interpretation and review of laboratory results Abnormal [facility] POC Sample Type CAPBL [facility] MAGNESIUMon 08-14-2024 Interpretation and review of laboratory results Normal [facility] Magnesium [Mass/Vol] 1.6 mg/dL 1.6 - 2 .6 mg/dL [facility] Magnesium [Mass/Vol] 1.6 mg/dL Normal 1.6-2.6 [facility] Comment on above: Performed By: #### B LDCULT #### [facility] (DEFAULT) [address] [id number] No Panel Informationon 08-14 [facility] CBC,PLATELETSon 08-13-2024 Erythrocyte distribution width (RBC) [Ratio] 13.4 % 10.8 - 14.9 % [facility] Hematocrit (Bld) [Volume fraction] 45.7 % High 34.9 - 44.3 % [facility] Hemoglobin (Bld) [Mass/Vol] 14.3 g/dL 11.4 - 15.2 g/dL [facility] Interpretation and review of laboratory results Abnormal [facility] MCH (RBC) [Entitic mass] 29.5 pg 25.9 - 33.9 pg [facility] MCHC (RBC) [Mass/Vol] 31.3 g/dL Low 31.4 - 35.9 g/dL [facility] MCV (RBC) [Entitic vol] 94.2 fL 79.6 - 97.7 fL [facility] Platelet mean volume (Bld) [Entitic vol] 11.7 fL 8.5 - 12.2 fL [facility] Platelets (Bld) [#/Vol] 245 10*3/uL 150 - 393 K/uL [facility] RBC (Bld) [#/Vol] 4.85 10*6/uL [facility] WBC (Bld) [#/Vol] 12.02 10*3/uL High 3.99 - 11.19 K/uL [facility] Hematocrit (Bld) [Volume fraction] 45.7 % High 34.9-44.3 [facility] Comment on above: Performed By: #### [facility] #### [facility] (DEFAULT) [address] [address] Hemoglobin (Bld) [Mass/Vol] 14.3 g/dL Normal 11.4-15.2 [facility] Comment on above: Performed By: #### H EMOGC #### [facility] (DEFAULT) [address] [place] [address] 85812 MCV (RBC) [Entitic vol] 94.2 fL Normal 79.6-97.7 [facility] Comment on above: Performed By: #### H EMOGC #### [facility] (DEFAULT) [address] [place] [address] 24928 Mean Cell Hgb 29.5 pg Normal 25.9-33.9 [facility] Comment on above: Performed By: #### H EMOGC #### [facility] (DEFAULT) [address] [place] [address] 10094 Mean Cell Hgb Conc 31.3 g/dL Low 31.4-35.9 [facility] Comment on above: Performed By: #### H EMO #### [facility] (DEFAULT) [address] [place] [address] 29747 Platelet mean volume (Bld) [Entitic vol] 11.7 fL Normal 8.5-12.2 [facility] Comment on above: Performed By: #### H EMO #### [facility] (DEFAULT) [address] [place] [address] 81650 Platelets (Bld) [#/Vol] 245 10*3/uL Normal 150-393 [facility] Comment on above: Performed By: #### H EMO #### [facility] (DEFAULT) [address] [place] [address] 67409 RBC (Bld) [#/Vol] 4.85 10*6/uL Normal 3.91-5.04 [facility] Comment on above: Performed By: #### H EMO #### [facility] (DEFAULT) [address] [place] [address] 61723 RBC Distribution 13.4 % Normal 10.8-14.9 [facility] Comment on above: Performed By: #### H EMO #### [facility] (DEFAULT) [address] [place] [address] 32388 WBC (Bld) [#/Vol] 12.02 10*3/uL High 3.99-11.19 [facility] Comment on above: Performed By: #### H EMO #### [facility] (DEFAULT) [address] [place] [address]201 CHEM 7 (LYTES,BUN,CREA,GLUC) on 08-13-2024 Anion gap [Moles/Vol] 15 mmol/L 7 - 17 mmol/L [facility] Chloride [Moles/Vol] 104 mmol/L 98 - 10 8 mmol/L [facility] CO2 [Moles/Vol] 23 mmol/L 21 - 31 mmol/L [facility] Creatinine [Mass/Vol] 1.18 mg/dL 0.50 - 1.20 mg/dL [facility] eGFR, CKD-EPI, Female 47 Low - PINF [facility] Glucose [Mass/Vol] 225 mg/dL High 70 - 179 mg/dL [facility] Interpretation and review of laboratory results Abnormal [facility] Osmolality Calc [Osmolality] 311 High [facility] Potassium [Moles/Vol] 4.6 mmol/L 3.5 - 5.0 mmol/L [facility] Sodium [Moles/Vol] 137 mmol/L 135 - 145 mmol/L [facility] Urea nitrogen [Mass/Vol] 55 mg/dL High 7 - 25 mg/dL [facility] Urea nitrogen/Creatinine [Mass ratio] 47 mg/mg [facility] Anion gap [Moles/Vol] 15 mmol/L Normal 7-17 [facility] Comment on above: Performed By: #### [facility] #### [facility] (DEFAULT) [address] [address] Chloride [Moles/Vol] 104 mmol/L Normal 98-108 [facility] Comment on above: Performed By: #### [facility] #### [facility] (DEFAULT) [address] [address] CO2 [Moles/Vol] 23 mmol/L Normal 21-31 [facility] Comment on above: Performed By: #### [facility] #### [facility] (DEFAULT) [address] [address] Creatinine [Mass/Vol] 1.18 mg/dL Normal 0.50-1.20 [facility] Comment on above: Performed By: #### [facility] #### [facility] (DEFAULT) [address] [address] GFR/1.73 sq M.predicted among non-blacks MDRD (S/P/Bld) [Vol rate/Area] 47 mL/min/{1.73_m2} Low >=60 [facility] Comment on above: Result Comment: Repo rted eGFR is based on the CKD-EPI 2020 equation using creatinine, age, and sex. Performed By: #### H EMO #### [facility] (DEFAULT) [address] [place] [address] Glucose [Mass/Vol] 225 mg/dL High Nonfastin -179 mg/dL; Fastin-99 [facility] Comment on above: Performed By: #### H EMOGC #### [facility] (DEFAULT) [address] [place] [address]66 Osmolality [Osmolality] 311 mosm/kg High 278-305 [facility] Comment on above: Performed By: #### H EMO #### [facility] (DEFAULT) [address] [place] [address] 11464 Potassium [Moles/Vol] 4.6 mmol/L Normal 3.5-5.0 [facility] Comment on above: Performed By: #### H EMO #### [facility] (DEFAULT) [address] [place] [address] 31517 Sodium [Moles/Vol] 137 mmol/L Normal 135-145 [facility] Comment on above: Performed By: #### H EMO #### [facility] (DEFAULT) [address] [place] [address]11 Urea nitrogen [Mass/Vol] 55 mg/dL High 7-25 [facility] Comment on above: Performed By: #### H EMO #### [facility] (DEFAULT) [address] [place] [address] 17864 Urea nitrogen/Creatinine [Mass ratio] 47 mg/mg Normal [facility] Comment on above: Performed By: #### H EMOGC #### [facility] (DEFAULT) [address] [place] [address] 73625 GLUCOSE POCon 08-13-2024 Glucose [Mass/Vol] 195 mg/dL High 70 - 179 mg/dL [facility] Interpretation and review of laboratory results Abnormal [facility] POC Sample Type CAP[facility] Glucose [Mass/Vol] 198 mg/dL High 70 - 179 mg/dL [facility] Interpretation and review of laboratory results Abnormal [facility] POC Sample Type CAP[facility] Glucose [Mass/Vol] 158 mg/dL 70 - 179 mg/dL [facility] POC Sample Type CAPBL [facility] Glucose [Mass/Vol] 211 mg/dL High 70 - 179 mg/dL [facility] Interpretation and review of laboratory results Abnormal [facility] POC Sample Type CAPBL [facility] Glucose [Mass/Vol] 240 mg/dL High 70 - 179 mg/dL [facility] Interpretation and review of laboratory results Abnormal [facility] POC Sample Type CAPBL [facility] MAGNESIUMon 08-13-2024 Interpretation and review of laboratory results Normal [facility] Magnesium [Mass/Vol] 1.8 mg/dL 1.6 - 2 .6 mg/dL [facility] Magnesium [Mass/Vol] 1.8 mg/dL Normal 1.6-2.6 [facility] Comment on above: Performed By: #### [facility] #### [facility] (DEFAULT) [address] [place] [address] No Panel Informationon 08-13 [facility] CBC,PLATELETSon 08-12-2024 Erythrocyte distribution width (RBC) [Ratio] 13.6 % 10.8 - 14.9 % [facility] Hematocrit (Bld) [Volume fraction] 45.1 % High 34.9 - 44.3 % [facility] Hemoglobin (Bld) [Mass/Vol] 14.3 g/dL 11.4 - 15.2 g/dL [facility] Interpretation and review of laboratory results Abnormal [facility] MCH (RBC) [Entitic mass] 29.7 pg 25.9 - 33.9 pg [facility] MCHC (RBC) [Mass/Vol] 31.7 g/dL 31.4 - 35.9 g/dL [facility] MCV (RBC) [Entitic vol] 93.6 fL 79.6 - 97.7 fL [facility] Platelet mean volume (Bld) [Entitic vol] 11.4 fL 8.5 - 12.2 fL [facility] Platelets (Bld) [#/Vol] 241 10*3/uL 150 - 393 K/uL [facility] RBC (Bld) [#/Vol] 4.82 10*6/uL [facility] WBC (Bld) [#/Vol] 14.32 10*3/uL High 3.99 - 11.19 K/uL [facility] Hematocrit (Bld) [Volume fraction] 45.1 % High 34.9-44.3 [facility] Comment on above: Performed By: #### [facility] #### [facility] (DEFAULT) [address] [address] Hemoglobin (Bld) [Mass/Vol] 14.3 g/dL Normal 11.4-15.2 [facility] Comment on above: Performed By: #### [facility] #### [facility] (DEFAULT) [address] [address] MCV (RBC) [Entitic vol] 93.6 fL Normal 79.6-97.7 O [facility] Comment on above: Performed By: #### [facility] #### [facility] (DEFAULT) [address] [address] Mean Cell Hgb 29.7 pg Normal 25.9-33.9 [facility] Comment on above: Performed By: #### [facility] #### [facility] (DEFAULT) [address] [place] [address] Mean Cell Hgb Conc 31.7 g/dL Normal 31.4-35.9 [facility] Comment on above: Performed By: #### H EMOGC #### U [facility] (DEFAULT) [address] [place] [address] Platelet mean volume (Bld) [Entitic vol] 11.4 fL Normal 8.5-12.2 [facility] Comment on above: Performed By: #### H EMOGC #### [facility] (DEFAULT) [address] [place] [address] Platelets (Bld) [#/Vol] 241 10*3/uL Normal 150-393 [facility] Comment on above: Performed By: #### H EMOGC #### [facility] (DEFAULT) [address] [place] [address] RBC (Bld) [#/Vol] 4.82 10*6/uL Normal 3.91-5.04 [facility] Comment on above: Performed By: #### H EMOGC #### [facility] (DEFAULT) [address] [place] [address] RBC Distribution 13.6 % Normal 10.8-14.9 [facility] Comment on above: Performed By: #### H EMOGC #### [facility] (DEFAULT) [address] [place] [address] WBC (Bld) [#/Vol] 14.32 10*3/uL High 3.99-11.19 [facility] Comment on above: Performed By: #### H EMOGC #### [facility] (DEFAULT) [address] [address] CHEM 7 (LYTES,BUN,CREA,GLUC) on 08-12-2024 Anion gap [Moles/Vol] 15 mmol/L 7 - 17 mmol/L [facility] Chloride [Moles/Vol] 104 mmol/L 98 - 10 8 mmol/L [facility] CO2 [Moles/Vol] 27 mmol/L 21 - 31 mmol/L [facility] Creatinine [Mass/Vol] 1.36 mg/dL High 0.50 - 1.20 mg/dL [facility] eGFR, CKD-EPI, Female 40 Low - PINF [facility] Glucose [Mass/Vol] 126 mg/dL 70 - 179 mg/dL [facility] Interpretation and review of laboratory results Abnormal [facility] Osmolality Calc [Osmolality] 313 High [facility] Potassium [Moles/Vol] 4.5 mmol/L 3.5 - 5.0 mmol/L [facility] Sodium [Moles/Vol] 141 mmol/L 135 - 145 mmol/L [facility] Urea nitrogen [Mass/Vol] 56 mg/dL High 7 - 25 mg/dL [facility] Urea nitrogen/Creatinine [Mass ratio] 41 mg/mg [facility] Anion gap [Moles/Vol] 15 mmol/L Normal 7-17 [facility] Comment on above: Performed By: #### T YPEC #### [facility] (DEFAULT) [address] [place] [address] Chloride [Moles/Vol] 104 mmol/L Normal 98-108 [facility] Comment on above: Performed By: #### T YPEC #### [facility] (DEFAULT) [address] [place] [address] CO2 [Moles/Vol] 27 mmol/L Normal 21-31 [facility] Comment on above: Performed By: #### T YPEC #### [facility] (DEFAULT) [address] [place] [address] Creatinine [Mass/Vol] 1.36 mg/dL High 0.50-1.20 [facility] Comment on above: Performed By: #### T YPEC #### [facility] (DEFAULT) [address] [place] [address] GFR/1.73 sq M.predicted among non-blacks MDRD (S/P/Bld) [Vol rate/Area] 40 mL/min/{1.73_m2} Low >=60 [facility] Comment on above: Result Comment: Repo rted eGFR is based on the CKD-EPI 2020 equation using creatinine, age, and sex. Performed By: #### T YPEC #### U [facility] (DEFAULT) [address] [place] [address] Glucose [Mass/Vol] 126 mg/dL Normal Nonfastin -179 mg/dL; Fastin-99 [facility] Comment on above: Performed By: #### T YPEC #### [facility] (DEFAULT) [address] [place] [address] Osmolality [Osmolality] 313 mosm/kg High 278-305 [facility] Comment on above: Performed By: #### T YPEC #### [facility] (DEFAULT) [address] [place] [address] Potassium [Moles/Vol] 4.5 mmol/L Normal 3.5-5.0 [facility] Comment on above: Performed By: #### T YPEC #### [facility] (DEFAULT) [address] [place] [address] Sodium [Moles/Vol] 141 mmol/L Normal 135-145 [facility] Comment on above: Performed By: #### T YPEC #### U [facility] (DEFAULT) [address] [place] [address] Urea nitrogen [Mass/Vol] 56 mg/dL High 7-25 [facility] Comment on above: Performed By: #### T YPEC #### [facility] (DEFAULT) [address] [place] [address] Urea nitrogen/Creatinine [Mass ratio] 41 mg/mg Normal [facility] Comment on above: Performed By: #### T YPEC #### [facility] (DEFAULT) [address] [place] [address] GLUCOSE POCon 08-12-2024 Glucose [Mass/Vol] 231 mg/dL High 70 - 179 mg/dL [facility] Interpretation and review of laboratory results Abnormal [facility] POC Sample Type CAPBL [facility] Glucose [Mass/Vol] 208 mg/dL High 70 - 179 mg/dL [facility] Interpretation and review of laboratory results Abnormal [facility] POC Sample Type CAPBL [facility] Glucose [Mass/Vol] 160 mg/dL 70 - 179 mg/dL [facility] POC Sample Type CAPBL [facility] Glucose [Mass/Vol] 107 mg/dL 70 - 179 mg/dL [facility] POC Sample Type CAPBL [facility] MAGNESIUMon 08-12-2024 Interpretation and review of laboratory results Normal [facility] Magnesium [Mass/Vol] 2.2 mg/dL 1.6 - 2 .6 mg/dL [facility] Magnesium [Mass/Vol] 2.2 mg/dL Normal 1.6-2.6 [facility] Comment on above: Performed By: #### T YPEC #### [facility] (DEFAULT) [address] [place] [address] No Panel Informationon 08-12 [facility] SURG PATH REQUESTOrdered By: Renae Glez on 08-12-2024 Case Report [facility] Clinical History j0kisWYuWZUmrHIxLUCd NVx jisXkCDNarUHaF2MagjldRP ezGA4fMB5pwDzsuIGtnYBdT HXnQdWgs1ykg798sWRqd4or VFXOytnbeNg9vOlwP45up4A 9HkzvX5gsZMLpOOtkSZSjRK plvWVsQYx2KUYjeOJqmeSgT hMgNEZjlQDodDJ1LFSdHD4l gtpsZFzjBPojJVSgflL1CBD arLXdT7QvBSOsMS4dbptbWN S7HQmqYKCuKLD4RiHtBRWyw 7Oxezb3ElVtsGn3d7okHZIz VDOtzNlkf0ccNYM1FUQljWA bQ5qvvO4mWZYmAC5viuypb2 bzJTjyXWzqQOMfjRK5vlS5F GOtcPCsJ6IioI7eYIQhOUEq yvAftBfvmX0rZnAmGYynTdZ dDh8RUSjNVnFvNKUob2VaEC TySZXCkNZmwb3wsQY3JYTDd 82sEmMrOZCinQFdiKNYnJE1 d6D1GwXhHd4vxLNstHRglYT ylSV2z9T4QCKad1LwYNBlXu xwYXJ9 [facility] For Immediate Release to Patient's MyChart? Yes Yes [facility] Gross Description g3lfyZXeSJRsb8nrCHAw bGF uZzEwMzNcZnRuYmpcdWMxIH tccnRmMVxlcGljMTExMDVcY J1kmItvnMa0pYknDDKxneW0 rQUmMGmpt3nyBRY2s9glgtc fNDHsGOaqOf1hdQEhpPfvPx RbDEVbIZf1oI50NXPdpG1qi SAwBVqoncNrALYiH6IoZQ6e BGdaoUWuEVO2uZrwQUZfibc iFvP5HSzmHSZeokgqWOo8VE noOCKxqSE0QZSexBLpD4RrX SAkCS1rykw2NWS8RYqqFTGi PdF2DJIisKPrYJSdgQztNNf gq848PHW2EaBbOWSsxhGdeT ardS4rDfAiTKEEqZTgo6HkH 7hyST5sgMYdbdVfGDj6NAAw hX8zt39rVLQqn0Bmtdh1SSw xLzDaITJyD79ipPSfkmItVA dpdGggdGhlIHBhdGllbnQnc dJxOH9hPNShIYAzN4Ujw9Eu k26uubTuZsMxHmYirQYkBCV bsmtwLgSgNNztAcSdAyh2LP IgVGhlIHNwZWNpbWVuIGlzI TBqm4qubgJ2QZXeUwcvo1Mo sGJlUZRyjoTdsINxSW9oZUE knfXay1UxOU5xANPxtyCsVn IzJ75yftYfQK6eLOHcnu2jg A4kVQEnLnRskEgcp8DxOOJf lw3kBRFaIcS1wBP7jvTsObQ rD03rxD2jH1TtJRIky8NaAT fhCK6zxF3eAuXvVOPjKOZzy BCsFJFirzRWENKjVULzIY1j aTv5XKduHckBXHeaZjNfIIP 6QYBwzi11WIJ2JrKao1Z4FK YvFxMlCDSzUB9auRhhPGDqH C9tXPZvL0ppyO1temb7CcPd OFJuKsV8UJJyjiZ2Cvu8HFS vENcid0ycc9GgSWAzDYc0pP qnGoJcGORms1johnXiFuJnM YXhMTXfYPVsvSQdT397t0ix i1qjbaOvwBI0KBJqSOC5EUe hchXnzgG0VQkdcFLnGcL7FR uvarIkZEawmuHnxkPqZgf9F BAdF588MHK2mUbuz2oeLDD4 KBVwJNKpNtKzTe7usWRoU03 1TRAmNTPMTCBwbDx6IDIsyb NhxwWtiDBJp508G190x3hqX VXgrpKfdDhZznffk4btJ915 XHBhcGVydzEyMjQwXHBhcGV okDF2VKSnTE8uupghOZveSD soXCDafcE2TNKvnXUbS8KeR ECgVH5fkwieRCE3PRvcZCBy UFM9CsOoZXOul6Gxaqc2DgG zzh3xyk48KAD0z3YutWfvVG K8DHH0NpOsMa5uxXYcJUSrF H2zFoHbmGHuBJBrec30fPux BBdhqcEljB1rHiEdQLEflWA aUMQyIC5uyHJjPUFllD0yel xjXHBnYnJkcmhlYWRccGdic yZiTd2ejDyrEZH8GGwoS3de zM8dZxL9GVzlN5rzjI0sOTa 4LUobmCM3FKSqpR4sLE1vgg jfb6seEPwzMTaxPHTvkbL4w iC3HIPahHCzC8ZxrG7mIHAc SR8wpmqap8rkGCZ9URxwCVV lFKL4DqSfQYFko6Fsexk3Iz Bux6CucGSdENcaG75dl535C CPavbYiY8oeqFXxsnmqrQRf czeeRCxttnD4IVEgSYZoCZt uXGYxXGZzMjJcbGFuZzEwMz NcaGljaFxmMVxkYmNoXGYxX VotD9rlYcTgPtJtAhAAwi3t w4LqGWRoeuD0jTsrFIJqj9B jx9MyTrNNZMTnL6ZcNP7ttJ LqLIFwvl48 [facility] Microscopic Description g0ydxNSoVLLymWCu ZjIyMDA oTVOqf7zqFMMpgVHbHxGfXf NcZnRuYmpcdWMxXGRlZmYwe 8exv039wFVqw0elYRPzAhO7 lLLoJSKatDGbM934JUJfTOq pw8zjb0LcSCNnuGAzb9K0PW CSmovxaSs6hZdyM73my6J3M qmuO6wpEHTmRRXlS8ThIM6b SBTxQjq0TKZ2CMB1JMYeOVP vZ0AcBO9dUXOfdZLiDIq2k2 flhEldVRCnWHH0y7hqOByse jOsPC7znw2yeUc4j1jutkGu BGKrBEAkfPVVWTOfJ8KvjGs bIg5ckOf5wXvoUqsxBQF6Gu u6OO6erb58daa0aKjwKGFrq yhyFnC0UBxgHJRabdkkOZt2 GYmvXFTvtRS6LQNioLLoD1E cXZOtJO6impy8SUS9TIhjZX JjWoY9QDIqpHApHGSapPafF Qdij774BIR6FhJnSW7vE7Rb d8O0vY3woWHzYRYrrJBpHnC qLDJauj6xuZQvQCzfj5AtLO D7omQ2jPFfxMPaAFGwQE21Z spmu4AjFnmmSVD0KKFajdXt x6Uof8uxDoWiieIbK0emK0W yZHJoZWFkXHBnYnJkcmZvb3 Wwi0DvySTwwWt6n9knVDPlC AMgtErxq2bfQAA3JFBnL3P9 qHWrd9ssZZfqPKOxoLO1xxZ 3UUJuuLSiA4EgsS8eXILuJD 1kjax0u5vqQFM5YLfnQANuV oK4xmE6IYCpgUUhDWKrlTey IBlpl709SUG6SoEvNRPvo6X uJ6TupDbxC36whXlgU19hQB PvlNttdL8cvHnqiA0wAdMuZ nMyNFxxbFxwbGFpblxmMVxm iaKnTJnhgoorBOZhJLleU9g dDjKcBPJktUnoNJsrs6TqBY XvCNOnXfTaGLZvsWLdk8Duk 3RiWlCodZSozC8oxLxihrF7 NPGohVLgWv8qsXAuJlUyjEA yfQ== [facility] Pathologic Diagnosis k6qldZOxUMAmbVIiMRU wNVx lfnJsXPUqxEUsP2EdstdkLD urJT5oTJ3cuWxryEQwoXZiY UPjHfVjj6xed039wNIuk6gk VRNTwkihaMv5k2feJIAVpI4 ug4l4hE80KZTbeQ7qpPRwVV cyagArNKzesxYkmhLpMlg2K VS3uAhoRqbecYW6uLCejLS8 WXely5SxuBadiKfiOPKzUBX eFCQ7A1infMA1rCVmcTgpjQ NmDE6mv1hkeKZ8yyDbQWN9k ZtqjSO2hIcumhxqa3dfiXK0 fHB0FJvueZM3UQteFzLfO5q iSYJjqJ8rV37jK1ymBXVasH mqWFxeGFFsyFM0HJG9DABdf 1xsZXZlbHRleHRcJzAxXCdi Znc9u3feOFExuS68bYVybkF 7fVxmMVxmczIwXGxpMzYwXG ZpMTgwfXtcbGlzdGxldmVsX AstahAiytDwRoHjkJO8JQyl VsStBeYlhOD7AKicTfLjiKU 8LGfmjSZorHQ3QWpmwCK9KL e6FUo5RWknVJirRes3zFfwl VD8QXwpaH7pGIAoW29wCySi FaGtYP49QOdpa9OfQUPrdVs cAZDydS9kXqDqKRuyreBvvt ZjbjIzXGxldmVsamMwXGxld aPea7LbwgHsiPV5IDefxbGi jTV5zZvtXQGoF9A8K094BMc schWticDmXnZzjae9KTKbRJ GwTrW2n4wumYY2oTZ2VLnfo AW5DQhdEbVsX5eoCYHzrV2c H18hC8hrJRQobXakUIivRJQ ddTH9CQP2YUFmg3yeIJSixQ OetPVcOpXhZOklXop6u2hlJ EIdhO00hJVqcuS9aOoqHNqc czIwfXtcbGlzdGxldmVsXGx cmkRvjmTwVqBooUN7GHukGr YtBbLkuGU6FMztVwAcmTR4R GspnGQauGU1GJhlxTP9GDf8 GLe1BYbsNAboAci1rHodhOG 6ZBlanV9hTNQlV55zXyDvCo LyOI00HRurl5RwZJWgyEdqQ XXqzZ9pRwOqIJwuwoJxrbGv bjIzXGxldmVsamMwXGxldmV sc8LuhuWbdZA6OEnfpaJhgN A6kHatTTVtK7J1F146YRlle eQnftQcNlTqbuy1HNYqKJAz XrH7n0xibPI5iAO9XXytvCL 5XPwnWqYmP0brMHNkhN6qV7 8iI6dkBVOcrRppFOnvRDZix NG9KXS3UDIai5akMVBsbVWy jUEnIqYgBEmtIyw0h6vaLJV bgK40yDJktpE6sGsiVTbfys IwfXtcbGlzdGxldmVsXGxld lJcrnRaLjWbzWB1HFeaUjQe XnZbwEJ0VXnlDzWkzCV1TSs cuDQtdTU4XGcqjWE3ZMb7JR x2UIsmZIpeNcl2xFedgWT9R KswrZ7aTUHnM14fSuDmAxDc WD89KNazj4PgHYXeaZegLGC zlN8uHyUkPJizzfMafmCwah IzXGxldmVsamMwXGxldmVsc 5HmegWjzTW1NFeihiFhpWA7 nHpyMSDxD4O4S265IGbcvoJ qskIyMzZkhfy9BZKfSLCrVx Q5xY30QFxvjShvhB16PVMmz GTyhSGitET8DHaqzAfztK81 NLFznDZoLQujt1YoNOVmZmZ 3HaSwXDVphDjjlP02YACwjO BdB350eyZqLOyoZC75ZGEnd GVydzEyMjQwXHBhcGVyaDE1 ZZXcHB7lmpoeUCscWTosUIP keiI4JRMrfKKjO6NoVCJvHJ 8hyoquFLU7ECzeDDUqYTD4Y dQdEBHec4Fcxqf4VnNxgGLk DMyplPDiiqebNXZhCcHaZ3A xWZYaUKE3v29oH9vvYSSeo3 BzeTpccGFyXGxpMzYwXGZpM KzoGTiuwiB0BXzhclPtzUa3 pEDzlHquwM2nLddddcLlBZG hRUUHg2SdjSRyiu8wcW0xGT SvpdXXveOAPIpvW69jPJD2C PHetKlwl9IgITpeKK42yQYu ZWRccGFyfQ== [facility] Professional Interpretation Performed at: l1kivNLhEWYpkBNoLlRdVIR vWMEms9aaNANieWDtOyStWx NcZnRuYmpcdWMxXGRlZmYwe 0fuj789zSSol5shHDMjRnD6 aQTfVMUboKKoS634HTUkCUt hf6sfn3OvBQHecVTxv5L0DT BXqrharRz8yEzkF99ik9P3W okuR0jtWSTbDGDsZ5GnPB5d NYXqCtr1TAF9OYE3XPLoVCJ oC6PlNS3wPPMfbRDrQUo5b9 uyrAvvDGVfLAK7q6axFDpqn wJsKH5cse4kwSs2y4rdusHn VXYjJELiyYTZSGUaL6WfsVr iFr4pbYa4yFfxVtehCIS0Lx q3XY1cyf74dql0kGtzGWVec zzmXyN6NJmdLULaiualSYe1 DNjxWWKfsUY3TRAzpTCyJ9V jDBYsLM4hwdf0TJE9LBawGA PtFuJ2JTXxcXRkZOBvmGnqL Akes376GCE1HrJdGU8vM0Oe g8U8dD9akUTfPCCcxQYrOiO pLTOsae3qxITdYReuq5PzZY X6yuE0gJFvoGDyCMAiUN98E kgmz1NzWrdfCJR5TRAdzoVd v1Kmw8qzXnBsfyOmY1lrC9L yZHJoZWFkXHBnYnJkcmZvb3 Lnb1YubBKycVb1f4yvZLKhD SIbzDqka8seVYZ8GNTjQ5U1 vQIgw3owATraTXTinBT2moE 9FTItnVCtI0UxuE1zHZMyQU 5hazj4n3ktAPI4QBejZZLxK fS4snQ8XBVfoMUoBDBcyZww VDprx744LNN7DqAtRVFgx6Q pB9IicVyjN13nqXfrS02nLF XndThztX6dkIvqeS7pHtHbZ nMyNFxwYXJkXHBsYWluXGYx XGZzMjJcbGFuZzEwMzNcaGl jaFxmMVxkYmNoXGYxXGxvY2 qqAeNlFqRpIsYIJ9NnK7FWW oSBLB0IKTcNCMmjL8SSDUHG SITJRA9HK2BUVFlWGu2KYVT CZejffTTwLKXdDIGDTKO7WF BxwAefCRGgOWIyygHTv6q1o GB9ruceD3lfzmT6QzNgTEih YXJ9 [facility] CBC,PLATELETSon 08-11-2024 Erythrocyte distribution width (RBC) [Ratio] 13.7 % 10.8 - 14.9 % [facility] Hematocrit (Bld) [Volume fraction] 43.2 % 34.9 - 44.3 % [facility] Hemoglobin (Bld) [Mass/Vol] 14 g/dL 11.4 - 15.2 g/dL [facility] Interpretation and review of laboratory results Abnormal [facility] MCH (RBC) [Entitic mass] 29.9 pg 25.9 - 33.9 pg [facility] MCHC (RBC) [Mass/Vol] 32.4 g/dL 31.4 - 35.9 g/dL [facility] MCV (RBC) [Entitic vol] 92.1 fL 79.6 - 97.7 fL [facility] Platelet mean volume (Bld) [Entitic vol] 11.5 fL 8.5 - 12.2 fL [facility] Platelets (Bld) [#/Vol] 240 10*3/uL 150 - 393 K/uL [facility] RBC (Bld) [#/Vol] 4.69 10*6/uL [facility] WBC (Bld) [#/Vol] 11.76 10*3/uL High 3.99 - 11.19 K/uL [facility] Hematocrit (Bld) [Volume fraction] 43.2 % Normal 34.9-44.3 [facility] Comment on above: Performed By: #### T YPEC #### [facility] (DEFAULT) [address] [address] Hemoglobin (Bld) [Mass/Vol] 14.0 g/dL Normal 11.4-15.2 [facility] Comment on above: Performed By: #### T YPEC #### [facility] (DEFAULT) [address] [address] MCV (RBC) [Entitic vol] 92.1 fL Normal 79.6-97.7 [facility] Comment on above: Performed By: #### T YPEC #### [facility] (DEFAULT) [address] [address] Mean Cell Hgb 29.9 pg Normal 25.9-33.9 [facility] Comment on above: Performed By: #### T YPEC #### [facility] (DEFAULT) [address] [address] Mean Cell Hgb Conc 32.4 g/dL Normal 31.4-35.9 [facility] Comment on above: Performed By: #### T YPEC #### [facility] (DEFAULT) [address] [address] Platelet mean volume (Bld) [Entitic vol] 11.5 fL Normal 8.5-12.2 [facility] Comment on above: Performed By: #### T YPEC #### [facility] (DEFAULT) [address] [address] Platelets (Bld) [#/Vol] 240 10*3/uL Normal 150-393 [facility] Comment on above: Performed By: #### T YPEC #### [facility] (DEFAULT) [address] [address] RBC (Bld) [#/Vol] 4.69 10*6/uL Normal 3.91-5.04 [facility] Comment on above: Performed By: #### T YPEC #### [facility] [place] (DEFAULT) [address] [address] RBC Distribution 13.7 % Normal 10.8-14.9 [facility] Comment on above: Performed By: #### T YPEC #### [facility] [place] (DEFAULT) [address] [address] WBC (Bld) [#/Vol] 11.76 10*3/uL High 3.99-11.19 [facility] Comment on above: Performed By: #### T YPEC #### [facility] [place] (DEFAULT) [address] [place] [address] CHEM 7 (LYTES,BUN,CREA,GLUC) on 08-11-2024 Anion gap [Moles/Vol] 14 mmol/L 7 - 17 mmol/L [facility] Chloride [Moles/Vol] 103 mmol/L 98 - 10 8 mmol/L [facility] CO2 [Moles/Vol] 26 mmol/L 21 - 31 mmol/L [facility] [place] Creatinine [Mass/Vol] 1.32 mg/dL High 0.50 - 1.20 mg/dL [facility] eGFR, CKD-EPI, Female 41 Low - PINF [facility] Glucose [Mass/Vol] 127 mg/dL 70 - 179 mg/dL [facility] Interpretation and review of laboratory results Abnormal [facility] Osmolality Calc [Osmolality] 306 High [facility] Potassium [Moles/Vol] 4.6 mmol/L 3.5 - 5.0 mmol/L [facility] Sodium [Moles/Vol] 138 mmol/L 135 - 145 mmol/L [facility] Urea nitrogen [Mass/Vol] 53 mg/dL High 7 - 25 mg/dL [facility] [place] Urea nitrogen/Creatinine [Mass ratio] 40 mg/mg [facility] Anion gap [Moles/Vol] 14 mmol/L Normal 7-17 [facility] Comment on above: Performed By: #### [facility] #### [facility] [place] (DEFAULT) [address] [place] [id number] Chloride [Moles/Vol] 103 mmol/L Normal 98-108 [facility] Comment on above: Performed By: #### [facility] #### [facility] [place] (DEFAULT) [address] [place] [id number] CO2 [Moles/Vol] 26 mmol/L Normal 21-31 [facility] Comment on above: Performed By: #### [facility] #### [facility] [place] (DEFAULT) [address] [place] [address] Creatinine [Mass/Vol] 1.32 mg/dL High 0.50-1.20 [facility] Comment on above: Performed By: #### [facility] #### [facility] (DEFAULT) [address] [address] GFR/1.73 sq M.predicted among non-blacks MDRD (S/P/Bld) [Vol rate/Area] 41 mL/min/{1.73_m2} Low >=60 [facility] Comment on above: Result Comment: Repo rted eGFR is based on the CKD-EPI 2020 equation using creatinine, age, and sex. Performed By: #### [facility] #### [facility] (DEFAULT) [address] [address] Glucose [Mass/Vol] 127 mg/dL Normal Nonfastin -179 mg/dL; Fastin-99 [facility] Comment on above: Performed By: #### H EMO #### [facility] [place] (DEFAULT) [address] [address] Osmolality [Osmolality] 306 mosm/kg High 278-305 [facility] Comment on above: Performed By: #### H EMO #### [facility] [place] (DEFAULT) [address] [address] Potassium [Moles/Vol] 4.6 mmol/L Normal 3.5-5.0 [facility] Comment on above: Performed By: #### H EMO #### [facility] [place] (DEFAULT) [address] [address] Sodium [Moles/Vol] 138 mmol/L Normal 135-145 [facility] Comment on above: Performed By: #### H EMOGC #### [facility] [place] (DEFAULT) [address] [id number] Urea nitrogen [Mass/Vol] 53 mg/dL High 7-25 [facility] Comment on above: Performed By: #### H EMOGC #### [facility] (DEFAULT) [address] [place] [address] Urea nitrogen/Creatinine [Mass ratio] 40 mg/mg Normal [facility] Comment on above: Performed By: #### [facility] #### [facility] (DEFAULT) [address] [place] [address] GLUCOSE POCon 08-11-2024 Glucose [Mass/Vol] 213 mg/dL High 70 - 179 mg/dL [facility] Interpretation and review of laboratory results Abnormal [facility] POC Sample Type CAPBL [facility] Glucose [Mass/Vol] 255 mg/dL High 70 - 179 mg/dL [facility] Interpretation and review of laboratory results Abnormal [facility] POC Sample Type CAPBL [facility] Glucose [Mass/Vol] 190 mg/dL High 70 - 179 mg/dL [facility] Interpretation and review of laboratory results Abnormal [facility] POC Sample Type CAPBL [facility] Glucose [Mass/Vol] 205 mg/dL High 70 - 179 mg/dL [facility] Interpretation and review of laboratory results Abnormal [facility] POC Sample Type CAPBL [facility] MAGNESIUMon 08-11-2024 Interpretation and review of laboratory results Normal [facility] Magnesium [Mass/Vol] 1.9 mg/dL 1.6 - 2 .6 mg/dL [facility] Magnesium [Mass/Vol] 1.9 mg/dL Normal 1.6-2.6 [facility] Comment on above: Performed By: #### M [facility] #### [facility] (DEFAULT) [address] [place] [address] No Panel Informationon 08-11 [facility] BLOOD CULTUREon 08-10-2024 Bacteria identified Cx Nom (Unsp spec) NO GROWTH DAY 5 OF 5 Normal [facility] Comment on above: Order Comment: [...] By: #### T YPEC #### [facility] (DEFAULT) [address] [address] Bacteria identified Cx Nom (Unsp spec) NO GROWTH DAY 5 OF 5 Normal [facility] Comment on above: Order Comment: [...] By: #### B LDCULT #### [facility] (DEFAULT) [address] [address] CBC,PLATELETSon 08-10-2024 Erythrocyte distribution width (RBC) [Ratio] 13.3 % 10.8 - 14.9 % [facility] Hematocrit (Bld) [Volume fraction] 45.1 % High 34.9 - 44.3 % [facility] Hemoglobin (Bld) [Mass/Vol] 14.1 g/dL 11.4 - 15.2 g/dL [facility] Interpretation and review of laboratory results Abnormal [facility] MCH (RBC) [Entitic mass] 29.1 pg 25.9 - 33.9 pg [facility] MCHC (RBC) [Mass/Vol] 31.3 g/dL Low 31.4 - 35.9 g/dL [facility] MCV (RBC) [Entitic vol] 93 fL 79.6 - 97.7 fL [facility] Platelet mean volume (Bld) [Entitic vol] 11.4 fL 8.5 - 12.2 fL [facility] Platelets (Bld) [#/Vol] 216 10*3/uL 150 - 393 K/uL [facility] RBC (Bld) [#/Vol] 4.85 10*6/uL [facility] WBC (Bld) [#/Vol] 13.78 10*3/uL High 3.99 - 11.19 K/uL [facility] Hematocrit (Bld) [Volume fraction] 45.1 % High 34.9-44.3 [facility] Comment on above: Performed By: #### [facility] #### [facility] (DEFAULT) [address] [address] Hemoglobin (Bld) [Mass/Vol] 14.1 g/dL Normal 11.4-15.2 [facility] Comment on above: Performed By: #### H EMO #### [facility] (DEFAULT) [address] [address] MCV (RBC) [Entitic vol] 93.0 fL Normal 79.6-97.7 O [facility] Comment on above: Performed By: #### H EMO #### [facility] (DEFAULT) [address] [address] Mean Cell Hgb 29.1 pg Normal 25.9-33.9 [facility] Comment on above: Performed By: #### H EMO #### [facility] (DEFAULT) [address] [address] Mean Cell Hgb Conc 31.3 g/dL Low 31.4-35.9 [facility] Comment on above: Performed By: #### H EMOGC #### [facility] (DEFAULT) [address] [address] Platelet mean volume (Bld) [Entitic vol] 11.4 fL Normal 8.5-12.2 [facility] Comment on above: Performed By: #### H EMOGC #### [facility] (DEFAULT) [address] [place] [address] Platelets (Bld) [#/Vol] 216 10*3/uL Normal 150-393 [facility] Comment on above: Performed By: #### H EMOGC #### [facility] (DEFAULT) [address] [place] [address] RBC (Bld) [#/Vol] 4.85 10*6/uL Normal 3.91-5.04 [facility] Comment on above: Performed By: #### H EMOGC #### [facility] (DEFAULT) [address] [place] [address] RBC Distribution 13.3 % Normal 10.8-14.9 [facility] Comment on above: Performed By: #### H EMOGC #### [facility] (DEFAULT) [address] [place] [address] WBC (Bld) [#/Vol] 13.78 10*3/uL High 3.99-11.19 [facility] Comment on above: Performed By: #### [facility] #### [facility] (DEFAULT) [address] [place] [address] CHEM 7 (LYTES,BUN,CREA,GLUC) on 08-10-2024 Anion gap [Moles/Vol] 16 mmol/L 7 - 17 mmol/L [facility] Chloride [Moles/Vol] 103 mmol/L 98 - 10 8 mmol/L [facility] CO2 [Moles/Vol] 24 mmol/L 21 - 31 mmol/L [facility] Creatinine [Mass/Vol] 1.36 mg/dL High 0.50 - 1.20 mg/dL [facility] eGFR, CKD-EPI, Female 40 Low - PINF [facility] Glucose [Mass/Vol] 186 mg/dL High 70 - 179 mg/dL [facility] Interpretation and review of laboratory results Abnormal [facility] Osmolality Calc [Osmolality] 308 High [facility] Potassium [Moles/Vol] 4.9 mmol/L 3.5 - 5.0 mmol/L [facility] Sodium [Moles/Vol] 138 mmol/L 135 - 145 mmol/L [facility] Urea nitrogen [Mass/Vol] 47 mg/dL High 7 - 25 mg/dL [facility] Urea nitrogen/Creatinine [Mass ratio] 35 mg/mg [facility] Anion gap [Moles/Vol] 16 mmol/L Normal 7-17 [facility] Comment on above: Performed By: #### Jaiden NGUYEN CHM7 ####[facility] (DEFAULT)[address] [place] [address] Chloride [Moles/Vol] 103 mmol/L Normal 98-108 [facility] Comment on above: Performed By: #### Jaiden NGUYEN CHM7 ####[facility] (DEFAULT)[address] [place] [address] CO2 [Moles/Vol] 24 mmol/L Normal 21-31 [facility] Comment on above: Performed By: #### Jaiden NGUYEN CHM7 ####[facility] (DEFAULT)[address] [place] [address] Creatinine [Mass/Vol] 1.36 mg/dL High 0.50-1.20 [facility] Comment on above: Performed By: #### Jaiden NGUYEN CHM7 ####[facility] (DEFAULT)[address] [place] [address] GFR/1.73 sq M.predicted among non-blacks MDRD (S/P/Bld) [Vol rate/Area] 40 mL/min/{1.73_m2} Low >=60 [facility] Comment on above: Result Comment: Repo rted eGFR is based on the CKD-EPI 2020 equation using creatinine, age, and sex. Performed By: #### Jaiden NGUYEN CHM7 ####[facility] (DEFAULT)[address] [place] [address] Glucose [Mass/Vol] 186 mg/dL High Nonfastin -179 mg/dL; Fastin-99 [facility] Comment on above: Performed By: #### HEYDI PALACIOS7 ####[facility] (DEFAULT)[address] [place] [address] Osmolality [Osmolality] 308 mosm/kg High 278-305 [facility] Comment on above: Performed By: #### HEYDI PALACIOS7 ####[facility] (DEFAULT)[address] [place] [address] Potassium [Moles/Vol] 4.9 mmol/L Normal 3.5-5.0 [facility] Comment on above: Performed By: #### HEYDI PALACIOS7 ####[facility] (DEFAULT)[address] [place] [address] Sodium [Moles/Vol] 138 mmol/L Normal 135-145 [facility] Comment on above: Performed By: #### HEYDI PALACIOS7 ####[facility] (DEFAULT)[address] [place] [address] Urea nitrogen [Mass/Vol] 47 mg/dL High 7-25 [facility] Comment on above: Performed By: #### Jaiden NGUYEN CHM7 ####[facility] (DEFAULT)[address] [place] [address] Urea nitrogen/Creatinine [Mass ratio] 35 mg/mg Normal [facility] Comment on above: Performed By: #### Jaiden NGUYEN CHM7 ####[facility] (DEFAULT)[address] [place] [address] GLUCOSE POCon 08-10-2024 Glucose [Mass/Vol] 144 mg/dL 70 - 179 mg/dL [facility] POC Sample Type CAPBL [facility] Glucose [Mass/Vol] 177 mg/dL 70 - 179 mg/dL [facility] POC [facility] Glucose [Mass/Vol] 180 mg/dL High 70 - 179 mg/dL [facility] Interpretation and review of laboratory results Abnormal [facility] POC Sample Type CAPBL [facility] Glucose [Mass/Vol] 193 mg/dL High 70 - 179 mg/dL [facility] Interpretation and review of laboratory results Abnormal [facility] POC [facility] Glucose [Mass/Vol] 200 mg/dL High 70 - 179 mg/dL [facility] Interpretation and review of laboratory results Abnormal [facility] POC [facility] Glucose [Mass/Vol] 198 mg/dL High 70 - 179 mg/dL [facility] Interpretation and review of laboratory results Abnormal [facility] POC Sample Type [facility] MAGNESIUMon 08-10-2024 Interpretation and review of laboratory results Normal [facility] Magnesium [Mass/Vol] 1.8 mg/dL 1.6 - 2 .6 mg/dL [facility] Magnesium [Mass/Vol] 1.8 mg/dL Normal 1.6-2.6 [facility] Comment on above: Performed By: #### M , [facility] ####[facility] (DEFAULT)[address] [place] [address] No Panel Informationon 08-10 [facility] URINE CULTUREOrdered By: Franklin Carcamo on 08-10-2024 Bacteria identified Cx Nom (Unsp spec) Growth [facility] Bacteria identified Cx Nom (Unsp spec) KLEBSIELLA PNEUMONIAE Abnormal [facility] Interpretation and review of laboratory results Abnormal [facility] CBC,PLATELETSon 08-09-2024 Erythrocyte distribution width (RBC) [Ratio] 13.5 % 10.8 - 14.9 % [facility] Hematocrit (Bld) [Volume fraction] 44.4 % High 34.9 - 44.3 % [facility] Hemoglobin (Bld) [Mass/Vol] 14.1 g/dL 11.4 - 15.2 g/dL [facility] Interpretation and review of laboratory results Abnormal [facility] MCH (RBC) [Entitic mass] 29.4 pg 25.9 - 33.9 pg [facility] MCHC (RBC) [Mass/Vol] 31.8 g/dL 31.4 - 35.9 g/dL [facility] MCV (RBC) [Entitic vol] 92.7 fL 79.6 - 97.7 fL [facility] Platelet mean volume (Bld) [Entitic vol] 11.5 fL 8.5 - 12.2 fL [facility] Platelets (Bld) [#/Vol] 226 10*3/uL 150 - 393 K/uL [facility] RBC (Bld) [#/Vol] 4.79 10*6/uL [facility] WBC (Bld) [#/Vol] 12.37 10*3/uL High 3.99 - 11.19 K/uL [facility] Hematocrit (Bld) [Volume fraction] 44.4 % High 34.9-44.3 [facility] Comment on above: Performed By: #### [facility] #### [facility] (DEFAULT) [address] [address] Hemoglobin (Bld) [Mass/Vol] 14.1 g/dL Normal 11.4-15.2 [facility] Comment on above: Performed By: #### H [facility] #### [facility] (DEFAULT) [address] [place] [address] MCV (RBC) [Entitic vol] 92.7 fL Normal 79.6-97.7 [facility] Comment on above: Performed By: #### H EMOGC #### [facility] (DEFAULT) [address] [address] Mean Cell Hgb 29.4 pg Normal 25.9-33.9 [facility] Comment on above: Performed By: #### H EMOGC #### [facility] (DEFAULT) [address] [address] Mean Cell Hgb Conc 31.8 g/dL Normal 31.4-35.9 [facility] Comment on above: Performed By: #### H EMOGC #### [facility] (DEFAULT) [address] [address] Platelet mean volume (Bld) [Entitic vol] 11.5 fL Normal 8.5-12.2 [facility] Comment on above: Performed By: #### H EMOGC #### [facility] (DEFAULT) [address] [address] Platelets (Bld) [#/Vol] 226 10*3/uL Normal 150-393 [facility] Comment on above: Performed By: #### H EMOGC #### [facility] (DEFAULT) [address] [address] RBC (Bld) [#/Vol] 4.79 10*6/uL Normal 3.91-5.04 [facility] Comment on above: Performed By: #### H EMOGC #### [facility] (DEFAULT) [address] [address] RBC Distribution 13.5 % Normal 10.8-14.9 [facility] Comment on above: Performed By: #### H EMOGC #### [facility] (DEFAULT) [address] [address] WBC (Bld) [#/Vol] 12.37 10*3/uL High 3.99-11.19 [facility] Comment on above: Performed By: #### H EMOGC #### [facility] (DEFAULT) [address] [place] [address] CHEM 7 (LYTES,BUN,CREA,GLUC) on 08-09-2024 Anion gap [Moles/Vol] 14 mmol/L 7 - 17 mmol/L [facility] Chloride [Moles/Vol] 103 mmol/L 98 - 10 8 mmol/L [facility] CO2 [Moles/Vol] 26 mmol/L 21 - 31 mmol/L [facility] Creatinine [Mass/Vol] 1.35 mg/dL High 0.50 - 1.20 mg/dL [facility] eGFR, CKD-EPI, Female 40 Low - PINF [facility] Glucose [Mass/Vol] 182 mg/dL High 70 - 179 mg/dL [facility] Interpretation and review of laboratory results Abnormal [facility] Osmolality Calc [Osmolality] 305 [facility] Potassium [Moles/Vol] 4.9 mmol/L 3.5 - 5.0 mmol/L [facility] Sodium [Moles/Vol] 138 mmol/L 135 - 145 mmol/L [facility] Urea nitrogen [Mass/Vol] 38 mg/dL High 7 - 25 mg/dL [facility] Urea nitrogen/Creatinine [Mass ratio] 28 mg/mg [facility] Anion gap [Moles/Vol] 14 mmol/L Normal 7-17 [facility] Comment on above: Performed By: #### [facility] #### [facility] (DEFAULT) [address] [place] [address] Chloride [Moles/Vol] 103 mmol/L Normal 98-108 [facility] Comment on above: Performed By: #### [facility] #### [facility] (DEFAULT) [address] [place] [address] CO2 [Moles/Vol] 26 mmol/L Normal 21-31 [facility] Comment on above: Performed By: #### H [facility] #### [facility] (DEFAULT) [address] [place] [address] Creatinine [Mass/Vol] 1.35 mg/dL High 0.50-1.20 [facility] Comment on above: Performed By: #### [facility] #### [facility] (DEFAULT) [address] [address] GFR/1.73 sq M.predicted among non-blacks MDRD (S/P/Bld) [Vol rate/Area] 40 mL/min/{1.73_m2} Low >=60 [facility] Comment on above: Result Comment: Repo rted eGFR is based on the CKD-EPI 2020 equation using creatinine, age, and sex. Performed By: #### H [facility] #### [facility] (DEFAULT) [address] [address] Glucose [Mass/Vol] 182 mg/dL High Nonfastin -179 mg/dL; Fastin-99 [facility] Comment on above: Performed By: #### H EMO #### [facility] (DEFAULT) [address] [address] Osmolality [Osmolality] 305 mosm/kg Normal 278-305 [facility] Comment on above: Performed By: #### H EMO #### [facility] (DEFAULT) [address] [address] Potassium [Moles/Vol] 4.9 mmol/L Normal 3.5-5.0 [facility] Comment on above: Performed By: #### [facility] #### [facility] (DEFAULT) [address] [address] Sodium [Moles/Vol] 138 mmol/L Normal 135-145 [facility] Comment on above: Performed By: #### H EMOGC #### [facility] (DEFAULT) [address] [address] Urea nitrogen [Mass/Vol] 38 mg/dL High 7-25 [facility] Comment on above: Performed By: #### H EMO #### [facility] (DEFAULT) [address] [place] [address] Urea nitrogen/Creatinine [Mass ratio] 28 mg/mg Normal [facility] Comment on above: Performed By: #### H [facility] #### [facility] (DEFAULT) [address] [place] [address] EXTRA MICROon 08-09-2024 [facility] GLUCOSE POCon 08-09-2024 Glucose [Mass/Vol] 186 mg/dL High 70 - 179 mg/dL [facility] Interpretation and review of laboratory results Abnormal [facility] POC Sample Type CAPBL [facility] Glucose [Mass/Vol] 255 mg/dL High 70 - 179 mg/dL [facility] Interpretation and review of laboratory results Abnormal [facility] POC Sample Type CAPBL [facility] Glucose [Mass/Vol] 235 mg/dL High 70 - 179 mg/dL [facility] Interpretation and review of laboratory results Abnormal [facility] POC Sample Type CAPBL [facility] Glucose [Mass/Vol] 167 mg/dL 70 - 179 mg/dL [facility] POC Sample Type CAPBL [facility] INTERVENTIONAL UPPER ENDOSCO PYon 08-09-2024 Body surface area Derived from formula 1.9 m2 [facility] (narrative) [facility] MAGNESIUMon 08-09-2024 Interpretation and review of laboratory results Normal [facility] Magnesium [Mass/Vol] 1.8 mg/dL 1.6 - 2 .6 mg/dL [facility] Magnesium [Mass/Vol] 1.8 mg/dL Normal 1.6-2.6 [facility] Comment on above: Performed By: #### [facility] #### [facility] (DEFAULT) [address] [place] [address] No Panel Informationon 08-09 [facility] PT,INR,PTTon 08-09-2024 aPTT Coag (PPP) [Time] 38.4 s High [facility] INR Coag (Bld) [Relative time] 1 {INR} 0.9 - 1.1 [facility] Interpretation and review of laboratory results Abnormal [facility] PT Coag (PPP) [Time] 13 s [facility] aPTT Coag (Bld) [Time] 38.4 s High 24.0-34.3 [facility] Comment on above: Performed By: #### B LDCULT #### [facility] (DEFAULT) [address] [place] [address] INR Coag (PPP) [Relative time] 1.0 {INR} Normal 0.9-1.1 [facility] Comment on above: Performed By: #### B LDCULT #### [facility] (DEFAULT) [address] [place] [address] PT Coag (PPP) [Time] 13.0 s Normal 11.9-14.2 [facility] Comment on above: Performed By: #### B LDCULT #### [facility] (DEFAULT) [address] [place] [address] SURG PATH REQUESTon 08-10-[address] [facility] Comment on above: Result Comment: Surg ical Pathology Report Case: [id number] Authorizing Provider: Judson Keith DO Collected: 08/09/2024 10:07 AM Ordering Location: [facility] Received: 08/09/2024 12:13 PM Pathologist: Renae Glez MD Specimen: STOMACH, gastric, r/o HP Performed By: #### S URGP #### [facility] (DEFAULT) [address] [address] Clinical History R/O HP. Associated Diagnosis: None. Medical History: No medical history provided. Normal [facility] Comment on above: Performed By: #### S URGP #### [facility] (DEFAULT) [address] [place] [address] Gross Description [facility] Comment on above: Result Comment: The specimen is received in one properly labeled container with the patient's name and accession number. A. The specimen is designated "gastric, r/o hp" and consists of five fragments of jackson-pink soft tissue, from 0.2 up to 0.6 cm in greatest dimension. TE 1 Lab Use Only: JobID [id number] Grosser for this case was: Sunshine Hidalgo Performed By: #### S URGP #### [facility] (DEFAULT) [address] [place] [address] Microscopic Description A microscopic examination was performed. [facility] Comment on above: Performed By: #### S URGP #### [facility] (DEFAULT) [address] [facility] Comment on above: Result Comment: Anjelica echols, biopsy: Focal erosion No Helicobacter pylori identified at 1005 EDT Performed By: #### S URGP #### [facility] (DEFAULT) [address] [address] Professional Interpretation Performed at: [facility] Comment on above: Result Comment: [facility] For Immediate Release [facility] Yes [address] [address] Performed By: #### S URGP #### [facility] (DEFAULT) [address] [address] CBC,PLATELETSon 08-08-2024 Erythrocyte distribution width (RBC) [Ratio] 13.6 % 10.8 - 14.9 % [facility] Hematocrit (Bld) [Volume fraction] 45.7 % High 34.9 - 44.3 % [facility] Hemoglobin (Bld) [Mass/Vol] 14.4 g/dL 11.4 - 15.2 g/dL [facility] Interpretation and review of laboratory results Abnormal [facility] MCH (RBC) [Entitic mass] 29.4 pg 25.9 - 33.9 pg [facility] MCHC (RBC) [Mass/Vol] 31.5 g/dL 31.4 - 35.9 g/dL [facility] MCV (RBC) [Entitic vol] 93.3 fL 79.6 - 97.7 fL [facility] Platelet mean volume (Bld) [Entitic vol] 10.9 fL 8.5 - 12.2 fL [facility] Platelets (Bld) [#/Vol] 212 10*3/uL 150 - 393 K/uL [facility] RBC (Bld) [#/Vol] 4.9 10*6/uL [facility] WBC (Bld) [#/Vol] 10.39 10*3/uL 3.99 - 11.19 K/uL [facility] Hematocrit (Bld) [Volume fraction] 45.7 % High 34.9-44.3 [facility] Comment on above: Performed By: #### [facility] #### [facility] (DEFAULT) [address] [address] Hemoglobin (Bld) [Mass/Vol] 14.4 g/dL Normal 11.4-15.2 [facility] Comment on above: Performed By: #### [facility] #### [facility] (DEFAULT) [address] [place] [address] MCV (RBC) [Entitic vol] 93.3 fL Normal 79.6-97.7 O [facility] Comment on above: Performed By: #### [facility] #### [facility] (DEFAULT) [address] [place] [address] Mean Cell Hgb 29.4 pg Normal 25.9-33.9 [facility] Comment on above: Performed By: #### [facility] #### [facility] (DEFAULT) [address] [place] [address] Mean Cell Hgb Conc 31.5 g/dL Normal 31.4-35.9 [facility] Comment on above: Performed By: #### H EMOGC #### [facility] (DEFAULT) [address] [place] [address] Platelet mean volume (Bld) [Entitic vol] 10.9 fL Normal 8.5-12.2 [facility] Comment on above: Performed By: #### H EMOGC #### [facility] (DEFAULT) [address] [place] [address] Platelets (Bld) [#/Vol] 212 10*3/uL Normal 150-393 [facility] Comment on above: Performed By: #### H EMOGC #### [facility] (DEFAULT) [address] [place] [address] RBC (Bld) [#/Vol] 4.90 10*6/uL Normal 3.91-5.04 [facility] Comment on above: Performed By: #### H EMOGC #### [facility] (DEFAULT) [address] [place] [address] RBC Distribution 13.6 % Normal 10.8-14.9 [facility] Comment on above: Performed By: #### H EMOGC #### [facility] (DEFAULT) [address] [place] [address] WBC (Bld) [#/Vol] 10.39 10*3/uL Normal 3.99-11.19 [facility] Comment on above: Performed By: #### H EMOGC #### [facility] (DEFAULT) [address] [place] [address] CHEM 7 (LYTES,BUN,CREA,GLUC) on 08-08-2024 Anion gap [Moles/Vol] 15 mmol/L 7 - 17 mmol/L [facility] Chloride [Moles/Vol] 104 mmol/L 98 - 10 8 mmol/L [facility] CO2 [Moles/Vol] 25 mmol/L 21 - 31 mmol/L [facility] Creatinine [Mass/Vol] 1.15 mg/dL 0.50 - 1.20 mg/dL [facility] eGFR, CKD-EPI, Female 48 Low - PINF [facility] Glucose [Mass/Vol] 111 mg/dL 70 - 179 mg/dL [facility] Interpretation and review of laboratory results Abnormal [facility] Osmolality Calc [Osmolality] 302 [facility] Potassium [Moles/Vol] 4.3 mmol/L 3.5 - 5.0 mmol/L [facility] Sodium [Moles/Vol] 140 mmol/L 135 - 145 mmol/L [facility] Urea nitrogen [Mass/Vol] 35 mg/dL High 7 - 25 mg/dL [facility] Urea nitrogen/Creatinine [Mass ratio] 30 mg/mg [facility] Anion gap [Moles/Vol] 15 mmol/L Normal 7-17 [facility] Comment on above: Performed By: #### Jaiden NGUYEN CHM7 ####[facility] (DEFAULT)[address] [place] [address] Chloride [Moles/Vol] 104 mmol/L Normal 98-108 [facility] Comment on above: Performed By: #### Jaiden NGUYEN CHM7 ####[facility] (DEFAULT)[address] [place] [address] CO2 [Moles/Vol] 25 mmol/L Normal 21-31 [facility] Comment on above: Performed By: #### Jaiden NGUYEN CHM7 ####[facility] (DEFAULT)[address] [place] [address] Creatinine [Mass/Vol] 1.15 mg/dL Normal 0.50-1.20 [facility] Comment on above: Performed By: #### Jaiden NGUYEN CHM7 ####[facility] (DEFAULT)[address] [place] [address] GFR/1.73 sq M.predicted among non-blacks MDRD (S/P/Bld) [Vol rate/Area] 48 mL/min/{1.73_m2} Low >=60 [facility] Comment on above: Result Comment: Repo rted eGFR is based on the CKD-EPI 2020 equation using creatinine, age, and sex. Performed By: #### HEYDI PALACIOS7 ####[facility] (DEFAULT)[address] [place] [address] Glucose [Mass/Vol] 111 mg/dL Normal Nonfastin -179 mg/dL; Fastin-99 [facility] Comment on above: Performed By: #### HEYDI PALACIOS7 ####[facility] (DEFAULT)[address] [place] [address] Osmolality [Osmolality] 302 mosm/kg Normal 278-305 [facility] Comment on above: Performed By: #### CAMERON PALACIOS ####[facility] (DEFAULT)[address] [place] [address] Potassium [Moles/Vol] 4.3 mmol/L Normal 3.5-5.0 [facility] Comment on above: Performed By: #### HEYDI PALACIOS7 ####[facility] (DEFAULT)[address] [place] [address] Sodium [Moles/Vol] 140 mmol/L Normal 135-145 [facility] Comment on above: Performed By: #### HEYID PALACIOS7 ####[facility] (DEFAULT)[address] [place] [address] Urea nitrogen [Mass/Vol] 35 mg/dL High 7-25 [facility] Comment on above: Performed By: #### HEYDI PALACIOS7 ####[facility] (DEFAULT)[address] [place] [address] Urea nitrogen/Creatinine [Mass ratio] 30 mg/mg Normal [facility] Comment on above: Performed By: #### M CHM7 ####[facility] (DEFAULT)[address] [place] [address] CT HEAD WITHOUT CONTRASTon 0 08-08-2024 CT [...] have reviewed and approved this report. Normal [facility] CT Head WO contraston 2024 [facility] Radiology Study observation (narrative) [facility] GLUCOSE POCon 08-08-2024 Glucose [Mass/Vol] 150 mg/dL 70 - 179 mg/dL [facility] POC Sample Type CAPBL [facility] Glucose [Mass/Vol] 148 mg/dL 70 - 179 mg/dL [facility] POC Sample Type CAPBL [facility] Glucose [Mass/Vol] 192 mg/dL High 70 - 179 mg/dL [facility] Interpretation and review of laboratory results Abnormal [facility] POC Sample Type CAPBL [facility] Glucose [Mass/Vol] 198 mg/dL High 70 - 179 mg/dL [facility] Interpretation and review of laboratory results Abnormal [facility] POC Sample Type CAPBL [facility] Glucose [Mass/Vol] 186 mg/dL High 70 - 179 mg/dL [facility] Interpretation and review of laboratory results Abnormal [facility] POC Sample Type CAPBL [facility] MAGNESIUMon 08-08-2024 Interpretation and review of laboratory results Normal [facility] Magnesium [Mass/Vol] 1.7 mg/dL 1.6 - 2 .6 mg/dL [facility] Magnesium [Mass/Vol] 1.7 mg/dL Normal 1.6-2.6 [facility] Comment on above: Performed By: #### M [facility] ####[facility] (DEFAULT)[address] [place] [address] No Panel Informationon 08-08 [facility] URINALYSIS REFLEX TO CULTURE PERFORMABLEOrdered By: Danya Yates on 08-08-2024 Appearance (U) Cloudy Abnormal Clear [facility] Bacteria LM Ql (Urine sed) PRESENT Abnormal ABSENT [facility] Color (U) Yellow Yellow [facility] Epithelial cells.squamous LM Ql (Urine sed) 0-2/hpf 0-2/hpf, 3-5/hpf = 1+ [facility] Glucose Test strip (U) [Mass/Vol] Negative Negative [facility] Interpretation and review of laboratory results Abnormal [facility] Ketones (U) [Mass/Vol] Trace Abnormal Negative OS [facility] Leukocyte esterase Test strip Ql (U) Large Abnormal Negative U [facility] Nitrite Ql (U) Positive Abnormal Negative [facility] pH (U) 7.0 [pH] 5.0 - 7.0 [facility] Protein (U) [Mass/Vol] Trace Abnormal Negative OS [facility] RBC (U) [#/Vol] Trace Abnormal Negative [facility] RBC LM.HPF (Urine sed) [#/Area] 6-10 Abnormal [facility] Specific gravity (U) [Rel density] 1.023 1.001 - 1.035 [facility] Urobilinogen (U) [Mass/Vol] 1.0 E.U./dL 0.2 E.U/dL, 1.0 E.U/dL [facility] WBC LM.HPF (Urine sed) [#/Area] /[HPF] Abnormal [facility] URINALYSIS REFLEX TO CULTURE PERFORMABLEon 08-08-2024 Appearance (U) Cloudy Abnormal Clear [facility] Comment on above: Order Comment: For i ndwelling catheters, specimen collection is acceptable on catheter day 1 and 2 only. ? Performed By: #### T YPEC #### [facility] (DEFAULT) [address] [address] Bacteria PRESENT Abnormal ABSENT [facility] Comment on above: Order Comment: For i ndwelling catheters, specimen collection is acceptable on catheter day 1 and 2 only. ? Performed By: #### T YPEC #### [facility] (DEFAULT) [address] [address] Blood Urine Trace Abnormal Negative [facility] Comment on above: Order Comment: For i ndwelling catheters, specimen collection is acceptable on catheter day 1 and 2 only. ? Performed By: #### T YPEC #### [facility] (DEFAULT) [address] [place] [address] Color (U) Yellow Normal Yellow [facility] Comment on above: Order Comment: For i ndwelling catheters, specimen collection is acceptable on catheter day 1 and 2 only. ? Performed By: #### T YPEC #### [facility] (DEFAULT) [address] [place] [address] Glucose Ql (U) Negative Normal Negative [facility] Comment on above: Order Comment: For i ndwelling catheters, specimen collection is acceptable on catheter day 1 and 2 only. ? Performed By: #### T YPEC #### [facility] (DEFAULT) [address] [place] [address] Ketones Ql (U) Trace Abnormal Negative [facility] Comment on above: Order Comment: For i ndwelling catheters, specimen collection is acceptable on catheter day 1 and 2 only. ? Performed By: #### T YPEC #### [facility] (DEFAULT) [address] [place] [address] Leukocyte esterase Test strip Ql (U) Large Abnormal Negative [facility] Comment on above: Order Comment: For i ndwelling catheters, specimen collection is acceptable on catheter day 1 and 2 only. ? Performed By: #### T YPEC #### [facility] (DEFAULT) [address] [place] [address] Nitrites Urine Positive Abnormal Negative [facility] Comment on above: Order Comment: For i ndwelling catheters, specimen collection is acceptable on catheter day 1 and 2 only. ? Performed By: #### T YPEC #### [facility] (DEFAULT) [address] [place] [address] pH (U) 7.0 [pH] Normal 5.0-7.0 [facility] Comment on above: Order Comment: For i ndwelling catheters, specimen collection is acceptable on catheter day 1 and 2 only. ? Performed By: #### T YPEC #### [facility] (DEFAULT) [address] [place] [address] Protein Urine Trace Abnormal Negative [facility] Comment on above: Order Comment: For i ndwelling catheters, specimen collection is acceptable on catheter day 1 and 2 only. ? Performed By: #### T YPEC #### [facility] (DEFAULT) [address] [address] RBC Urine 6-10 Abnormal 0-2 [facility] Comment on above: Order Comment: For i ndwelling catheters, specimen collection is acceptable on catheter day 1 and 2 only. ? Performed By: #### T YPEC #### [facility] (DEFAULT) [address] [address] Specific [place] Urine 1.023 Normal 1.001-1.035 O [facility] Comment on above: Order Comment: For i ndwelling catheters, specimen collection is acceptable on catheter day 1 and 2 only. ? Performed By: #### T YPEC #### [facility] (DEFAULT) [address] [address] Squamous/Epithelial Cells, Urine 0-2/hpf Normal 0-2/hpf, 3-5/hpf = 1+ [facility] Comment on above: Order Comment: For i ndwelling catheters, specimen collection is acceptable on catheter day 1 and 2 only. ? Performed By: #### T YPEC #### [facility] (DEFAULT) [address] [address] Urobilinogen Urine 1.0 E.U./dL Normal 0.2 E.U/d L, 1.0 E.U/dL [facility] Comment on above: Order Comment: For i ndwelling catheters, specimen collection is acceptable on catheter day 1 and 2 only. ? Performed By: #### T YPEC #### [facility] (DEFAULT) [address] [address] WBC LM.HPF (Urine sed) [#/Area] /[HPF] Abnormal 0 - 5 [facility] Comment on above: Order Comment: For i ndwelling catheters, specimen collection is acceptable on catheter day 1 and 2 only. ? Performed By: #### T YPEC #### [facility] (DEFAULT) [address] [address] URINE CULTUREon 08-08-2024 Amikacin [Susceptibility] <= Invalid Interpretation Code [facility] Comment on above: Order Comment: [...] By: #### T YPEC #### [facility] (DEFAULT) [address] [place] [address] Ampicillin [Susceptibility] >=32 Resistant [facility] Comment on above: Order Comment: [...] By: #### T YPEC #### [facility] (DEFAULT) [address] [place] [address] Ampicillin+Sulbactam [Susceptibility] >=32 Resistant [facility] Comment on above: Order Comment: [...] By: #### T YPEC #### [facility] (DEFAULT) [address] [place] [address] ceFAZolin [Susceptibility] >= Resistant [facility] Comment on above: Order Comment: [...] By: #### T YPEC #### [facility] (DEFAULT) [address] [address] Cefepime [Susceptibility] <= Invalid Interpretation Code [facility] Comment on above: Order Comment: [...] By: #### T YPEC #### [facility] (DEFAULT) [address] [address] cefTRIAXone [Susceptibility] <= Invalid Interpretation Code [facility] Comment on above: Order Comment: [...] By: #### T YPEC #### [facility] (DEFAULT) [address] [address] Ciprofloxacin [Susceptibility] >= Resistant [facility] Comment on above: Order Comment: [...] By: #### T YPEC #### [facility] (DEFAULT) [address] [address] Ertapenem [Susceptibility] <= Invalid Interpretation Code [facility] Comment on above: Order Comment: [...] By: #### T YPEC #### [facility] (DEFAULT) [address] [address] Gentamicin [Susceptibility] <= Invalid Interpretation Code [facility] Comment on above: Order Comment: [...] By: #### T YPEC #### [facility] (DEFAULT) [address] [address] levoFLOXacin [Susceptibility] >= Resistant [facility] Comment on above: Order Comment: [...] By: #### T YPEC #### [facility] (DEFAULT) [address] [address] Nitrofurantoin [Susceptibility] 128 ug/mL Resistant [facility] Comment on above: Order Comment: [...] By: #### T YPEC #### [facility] (DEFAULT) [address] [place] [address] Piperacillin+Tazobactam [Susceptibility] 8 ug/mL Invalid Interpretation Code [facility] Comment on above: Order Comment: [...] By: #### T YPEC #### [facility] (DEFAULT) [address] [place] [address] Trimethoprim+Sulfametho xazole [Susceptibility] <= Invalid Interpretation Code [facility] Comment on above: Order Comment: [...] By: #### T YPEC #### [facility] (DEFAULT) [address] [place] [address] CBC,PLATELETSon 08-07-2024 Erythrocyte distribution width (RBC) [Ratio] 13.9 % 10.8 - 14.9 % [facility] Hematocrit (Bld) [Volume fraction] 43.1 % 34.9 - 44.3 % [facility] Hemoglobin (Bld) [Mass/Vol] 13.7 g/dL 11.4 - 15.2 g/dL [facility] Interpretation and review of laboratory results Abnormal [facility] MCH (RBC) [Entitic mass] 29.6 pg 25.9 - 33.9 pg [facility] MCHC (RBC) [Mass/Vol] 31.8 g/dL 31.4 - 35.9 g/dL [facility] MCV (RBC) [Entitic vol] 93.1 fL 79.6 - 97.7 fL [facility] Platelet mean volume (Bld) [Entitic vol] 11.1 fL 8.5 - 12.2 fL [facility] Platelets (Bld) [#/Vol] 214 10*3/uL 150 - 393 K/uL [facility] RBC (d) [#/Vol] 4.63 10*6/uL [facility] [#/Vol] 11.3 10*3/uL High 3.99 - 11.19 K/uL [facility] CHEM 7 (LYTES,BUN,CREA,GLUC) on 08-07-2024 Anion gap [Moles/Vol] 13 mmol/L 7 - 17 mmol/L [facility] Chloride [Moles/Vol] 105 mmol/L 98 - 10 8 mmol/L [facility] CO2 [Moles/Vol] 28 mmol/L 21 - 31 mmol/L [facility] Creatinine [Mass/Vol] 1.19 mg/dL 0.50 - 1.20 mg/dL [facility] eGFR, CKD-EPI, Female 47 Low - PINF [facility] Glucose [Mass/Vol] 90 mg/dL 70 - 179 mg/dL [facility] Interpretation and review of laboratory results Abnormal [facility] [place] Osmolality Calc [Osmolality] 304 [facility] [place] Potassium [Moles/Vol] 4.2 mmol/L 3.5 - 5.0 mmol/L [facility] [place] Sodium [Moles/Vol] 142 mmol/L 135 - 145 mmol/L [facility] [place] Urea nitrogen [Mass/Vol] 34 mg/dL High 7 - 25 mg/dL [facility] [place] Urea nitrogen/Creatinine [Mass ratio] 29 mg/mg [facility] [place] GLUCOSE POCon 08-07-2024 Glucose [Mass/Vol] 185 mg/dL High 70 - 179 mg/dL [facility] [place] Interpretation and review of laboratory results Abnormal [facility] [place] POC Sample Type CAPBL [facility] Glucose [Mass/Vol] 106 mg/dL 70 - 179 mg/dL [facility] [place] POC Sample Type CAPBL [facility] Glucose [Mass/Vol] 104 mg/dL 70 - 179 mg/dL [facility] [place] POC Sample Type CAPBL [facility] MAGNESIUMon 08-07-2024 Interpretation and review of laboratory results Normal [facility] [place] Magnesium [Mass/Vol] 1.8 mg/dL 1.6 - 2 .6 mg/dL [facility] [place] No Panel Informationon 08-07 [facility] [place] CBC,PLATELETSon 08-06-2024 Hematocrit (Bld) [Volume fraction] 43.1 % Normal 34.9-44.3 [facility] Comment on above: Performed By: #### X M #### [facility] [place] (DEFAULT) [address] [place] [address] Hemoglobin (Bld) [Mass/Vol] 13.7 g/dL Normal 11.4-15.2 [facility] Comment on above: Performed By: #### X M #### [facility] [place] (DEFAULT) [address] [place] [address]199 MCV (RBC) [Entitic vol] 93.1 fL Normal 79.6-97.7 O [facility] Comment on above: Performed By: #### X M #### [facility] [place] (DEFAULT) [address] [place] [address]357 Mean Cell Hgb 29.6 pg Normal 25.9-33.9 [facility] Comment on above: Performed By: #### X M #### [facility] [place] (DEFAULT) [address] [place] [address] 22270 Mean Cell Hgb Conc 31.8 g/dL Normal 31.4-35.9 [facility] Comment on above: Performed By: #### X M #### [facility] [place] (DEFAULT) [address] [place] [address]673 Platelet mean volume (Bld) [Entitic vol] 11.1 fL Normal 8.5-12.2 [facility] Comment on above: Performed By: #### X M #### [facility] [place] (DEFAULT) [address] [place] [address] Platelets (Bld) [#/Vol] 214 10*3/uL Normal 150-393 [facility] Comment on above: Performed By: #### X M #### [facility] [place] (DEFAULT) [address] [place] [address] 36511 RBC (Bld) [#/Vol] 4.63 10*6/uL Normal 3.91-5.04 [facility] Comment on above: Performed By: #### X M #### [facility] [place] (DEFAULT) [address] [place] [address] 67072 RBC Distribution 13.9 % Normal 10.8-14.9 [facility] Comment on above: Performed By: #### X M #### [facility] [place] (DEFAULT) [address] [place] [address] 33893 WBC (Bld) [#/Vol] 11.30 10*3/uL High 3.99-11.19 [facility] Comment on above: Performed By: #### X M #### [facility] [place] (DEFAULT) [address] [place] [address] 04561 Erythrocyte distribution width (RBC) [Ratio] 13.9 % 10.8 - 14.9 % [facility] [place] Hematocrit (Bld) [Volume fraction] 44 % 34.9 - 44.3 % [facility] [place] Hemoglobin (Bld) [Mass/Vol] 13.9 g/dL 11.4 - 15.2 g/dL [facility] [place] Interpretation and review of laboratory results Abnormal [facility] [place] MCH (RBC) [Entitic mass] 29.1 pg 25.9 - 33.9 pg [facility] [place] MCHC (RBC) [Mass/Vol] 31.6 g/dL 31.4 - 35.9 g/dL [facility] [place] MCV (RBC) [Entitic vol] 92.2 fL 79.6 - 97.7 fL [facility] [place] Platelet mean volume (Bld) [Entitic vol] 10.7 fL 8.5 - 12.2 fL [facility] [place] Platelets (Bld) [#/Vol] 216 10*3/uL 150 - 393 K/uL [facility] [place] RBC (Bld) [#/Vol] 4.77 10*6/uL [facility] WBC (Bld) [#/Vol] 12.14 10*3/uL High 3.99 - 11.19 K/uL [facility] CHEM 7 (LYTES,BUN,CREA,GLUC) on 08-06-2024 Anion gap [Moles/Vol] 13 mmol/L Normal 7-17 [facility] Comment on above: Performed By: #### Jaiden NGUYEN CHM7 ####[facility] [place] (DEFAULT)[address] [place] [address] Chloride [Moles/Vol] 105 mmol/L Normal 98-108 [facility] Comment on above: Performed By: #### Jaiden NGUYEN CHM7 ####[facility] [place] (DEFAULT)[address] [place] [address] CO2 [Moles/Vol] 28 mmol/L Normal 21-31 [facility] Comment on above: Performed By: #### Jaiden NGUYEN CHM7 ####[facility] [place] (DEFAULT)[address] [place] [address] Creatinine [Mass/Vol] 1.19 mg/dL Normal 0.50-1.20 [facility] Comment on above: Performed By: #### Jaiden NGUYEN CHM7 ####[facility] [place] (DEFAULT)[address] [place] [address] GFR/1.73 sq M.predicted among non-blacks MDRD (S/P/Bld) [Vol rate/Area] 47 mL/min/{1.73_m2} Low >=60 [facility] Comment on above: Result Comment: Repo rted eGFR is based on the CKD-EPI 2020 equation using creatinine, age, and sex. Performed By: #### HEYDI PALACIOS7 ####[facility] (DEFAULT)[address] [place] [address] Glucose [Mass/Vol] 90 mg/dL Normal Nonfastin -179 mg/dL; Fastin-99 [facility] Comment on above: Performed By: #### HEYDI PALACIOS7 ####[facility] (DEFAULT)[address] [place] [address] Osmolality [Osmolality] 304 mosm/kg Normal 278-305 [facility] Comment on above: Performed By: #### HEYDI PALACIOS7 ####[facility] [place] (DEFAULT)[address] [place] [address] Potassium [Moles/Vol] 4.2 mmol/L Normal 3.5-5.0 [facility] Comment on above: Performed By: #### CAMERON PALACIOS ####[facility] [place] (DEFAULT)[address] [place] [address] Sodium [Moles/Vol] 142 mmol/L Normal 135-145 [facility] Comment on above: Performed By: #### HEYDI PALACIOS7 ####[facility] [place] (DEFAULT)[address] [place] [address] Urea nitrogen [Mass/Vol] 34 mg/dL High 7-25 [facility] Comment on above: Performed By: #### HEYDI PALACIOS7 ####[facility] (DEFAULT)[address] [place] [address] Urea nitrogen/Creatinine [Mass ratio] 29 mg/mg Normal [facility] Comment on above: Performed By: #### HEYDI PALACIOS7 ####[facility] [place] (DEFAULT)[address] [place] [address] Anion gap [Moles/Vol] 14 mmol/L 7 - 17 mmol/L [facility] [place] Chloride [Moles/Vol] 107 mmol/L 98 - 10 8 [facility]/L [facility] CO2 [Moles/Vol] 27 mmol/L 21 - 31 mmol/L [facility] Creatinine [Mass/Vol] 1.19 mg/dL 0.50 - 1.20 mg/dL [facility] eGFR, CKD-EPI, Female 47 Low - PINF [facility] Glucose [Mass/Vol] 88 mg/dL 70 - 179 mg/dL [facility] [place] Interpretation and review of laboratory results Abnormal [facility] [place] Osmolality Calc [Osmolality] 307 [facility] Potassium [Moles/Vol] 3.9 mmol/L 3.5 - 5.0 mmol/L [facility] Sodium [Moles/Vol] 144 mmol/L 135 - 145 mmol/L [facility] Urea nitrogen [Mass/Vol] 34 mg/dL High 7 - 25 mg/dL [facility] Urea nitrogen/Creatinine [Mass ratio] 29 mg/mg [facility] [place] GLUCOSE POCon 08-06-2024 Glucose [Mass/Vol] 166 mg/dL 70 - 179 mg/dL [facility] [place] Glucose [Mass/Vol] 106 mg/dL 70 - 179 mg/dL [facility] [place] Glucose [Mass/Vol] 100 mg/dL 70 - 179 mg/dL [facility] [place] POC Sample Type [facility] Glucose [Mass/Vol] 219 mg/dL High 70 - 179 mg/dL [facility] [place] Interpretation and review of laboratory results Abnormal [facility] Glucose [Mass/Vol] 249 mg/dL High 70 - 179 mg/dL [facility] Glucose [Mass/Vol] 178 mg/dL 70 - 179 mg/dL [facility] Glucose [Mass/Vol] 194 mg/dL High 70 - 179 mg/dL [facility] Glucose [Mass/Vol] 93 mg/dL 70 - 179 mg/dL [facility] POC Sample Type [facility] IONIZ[facility] CALCI[facility], WHOLE BLOOD Ordered By: Zuleika Blunt on 08-06-2024 Calcium.ionized (Bld) [Moles/Vol] 4.72 mg/dL 4.60 - 5.30 mg/dL [facility] [place] Interpretation and review of laboratory results Normal [facility] MAGNESIUMon 08-06-2024 Magnesium [Mass/Vol] 1.8 mg/dL Normal 1.6-2.6 [facility] Comment on above: Performed By: #### M [facility] ####[facility] [place] (DEFAULT)[address] [place] [address] Magnesium [Mass/Vol] 2.4 mg/dL 1.6 - 2 .6 mg/dL [facility] [place] No Panel Informationon 08-06 POC Sample Type [facility] Interpretation and review of laboratory results Abnormal [facility] [place] POC Sample Type [facility] Interpretation and review of laboratory results Normal [facility] PHOSPHATE, INORGANICon 08-06 Phosphate [Mass/Vol] 3.2 mg/dL 2.2 - 4 .6 mg/dL [facility] [place] RF videography Hypopharynx a nd Esophagus Views W liquid and paste contrast PO during swallowingon 08-06-2024 RADIOLOGY RADIOLOGY [facility] [place] Radiology Study observation (narrative) [facility] RF videography Hypopharynx a nd Esophagus Views W liquid and paste contrast PO during swallowingOrdered By: Gerry Resendez on 08-06-2024 [facility] [place] Work Phone: SPEECH MODIFIED BARIUM SWALL OWon 08-06-2024 [facility] XR FLUORO MODIFIED BARIUM SW [...] for specific therapeutic recommendations, please see the family services manager report of the speech pathologist. Examination performed by ARCADIO Nicole, under the direct supervision of Gerry Resendez M.D., who was immediately available on site during the examination. I personally viewed and interpreted these images and I have reviewed and approved this report. Normal [facility] CBC,PLATELETSon 08-05-2024 Hematocrit (Bld) [Volume fraction] 44.0 % Normal 34.9-44.3 [facility] Comment on above: Performed By: #### B LDCULT #### [facility] [place] (DEFAULT) [address] [address] Hemoglobin (Bld) [Mass/Vol] 13.9 g/dL Normal 11.4-15.2 [facility] Comment on above: Performed By: #### B LDCULT #### [facility] (DEFAULT) [address] [address] MCV (RBC) [Entitic vol] 92.2 fL Normal 79.6-97.7 O [facility] Comment on above: Performed By: #### B LDCULT #### [facility] (DEFAULT) [address] [address] Mean Cell Hgb 29.1 pg Normal 25.9-33.9 [facility] Comment on above: Performed By: #### B LDCULT #### [facility] [place] (DEFAULT) [address] [place] [address] 91929 Mean Cell Hgb Conc 31.6 g/dL Normal 31.4-35.9 [facility] Comment on above: Performed By: #### B LDCULT #### [facility] [place] (DEFAULT) [address] [place] [address] Platelet mean volume (Bld) [Entitic vol] 10.7 fL Normal 8.5-12.2 [facility] Comment on above: Performed By: #### B LDCULT #### [facility] [place] (DEFAULT) [address] [place] [address] Platelets (Bld) [#/Vol] 216 10*3/uL Normal 150-393 [facility] Comment on above: Performed By: #### B LDCULT #### [facility] [place] (DEFAULT) [address] [place] [address] 4[address] RBC (Bld) [#/Vol] 4.77 10*6/uL Normal 3.91-5.04 [facility] Comment on above: Performed By: #### B LDCULT #### [facility] [place] (DEFAULT) [address] [place] [address]95 RBC Distribution 13.9 % Normal 10.8-14.9 [facility] Comment on above: Performed By: #### B LDCULT #### [facility] [place] (DEFAULT) [address] [place] [address] WBC (Bld) [#/Vol] 12.14 10*3/uL High 3.99-11.19 [facility] Comment on above: Performed By: #### B LDCULT #### [facility] [place] (DEFAULT) [address] [place] [address] Erythrocyte distribution width (RBC) [Ratio] 13.9 % 10.8 - 14.9 % [facility] [place] Hematocrit (Bld) [Volume fraction] 39.6 % 34.9 - 44.3 % [facility] [place] Hemoglobin (Bld) [Mass/Vol] 12.6 g/dL 11.4 - 15.2 g/dL [facility] [place] Interpretation and review of laboratory results Normal [facility] [place] MCH (RBC) [Entitic mass] 29.3 pg 25.9 - 33.9 pg [facility] [place] MCHC (RBC) [Mass/Vol] 31.8 g/dL 31.4 - 35.9 g/dL [facility] [place] MCV (RBC) [Entitic vol] 92.1 fL 79.6 - 97.7 fL [facility] [place] Platelet mean volume (Bld) [Entitic vol] 10.7 fL 8.5 - 12.2 fL [facility] [place] Platelets (Bld) [#/Vol] 198 10*3/uL 150 - 393 K/uL [facility] [place] RBC (Bld) [#/Vol] 4.3 10*6/uL [facility] WBC (Bld) [#/Vol] 10.61 10*3/uL 3.99 - 11.19 K/uL [facility] Hematocrit (Bld) [Volume fraction] 39.6 % Normal 34.9-44.3 [facility] Comment on above: Performed By: #### [facility] ####[facility] [place] (DEFAULT)[address] [place] [address] Hemoglobin (Bld) [Mass/Vol] 12.6 g/dL Normal 11.4-15.2 [facility] Comment on above: Performed By: #### [facility] ####[facility] [place] (DEFAULT)[address] [place] [address] MCV (RBC) [Entitic vol] 92.1 fL Normal 79.6-97.7 O [facility] Comment on above: Performed By: #### [facility] ####[facility] [place] (DEFAULT)[address] [place] [address] Mean Cell Hgb 29.3 pg Normal 25.9-33.9 [facility] Comment on above: Performed By: #### H EMOGC ####[facility] [place] (DEFAULT)[address] [place] [address] Mean Cell Hgb Conc 31.8 g/dL Normal 31.4-35.9 [facility] Comment on above: Performed By: #### H EMOGC ####[facility] (DEFAULT)[address] [place] [address] Platelet mean volume (Bld) [Entitic vol] 10.7 fL Normal 8.5-12.2 [facility] Comment on above: Performed By: #### H EMOGC ####[facility] [place] (DEFAULT)[address] [place] [address] Platelets (Bld) [#/Vol] 198 10*3/uL Normal 150-393 [facility] Comment on above: Performed By: #### H EMOGC ####[facility] [place] (DEFAULT)[address] [place] [address] RBC (Bld) [#/Vol] 4.30 10*6/uL Normal 3.91-5.04 [facility] Comment on above: Performed By: #### H EMOGC ####[facility] [place] (DEFAULT)[address] [place] [address] RBC Distribution 13.9 % Normal 10.8-14.9 [facility] Comment on above: Performed By: #### H EMOGC ####[facility] [place] (DEFAULT)[address] [place] [address] WBC (Bld) [#/Vol] 10.61 10*3/uL Normal 3.99-11.19 [facility] Comment on above: Performed By: #### H EMOGC ####[facility] [place] (DEFAULT)[address] [place] [address] CHEM 7 (LYTES,BUN,CREA,GLUC) on 08-05-2024 Anion gap [Moles/Vol] 14 mmol/L Normal 7-17 [facility] Comment on above: Performed By: #### S URGP #### [facility] (DEFAULT) [address] [place] [address] Chloride [Moles/Vol] 107 mmol/L Normal 98-108 [facility] Comment on above: Performed By: #### S URGP #### [facility] (DEFAULT) [address] [place] [address] CO2 [Moles/Vol] 27 mmol/L Normal 21-31 [facility] Comment on above: Performed By: #### S URGP #### [facility] (DEFAULT) [address] [place] [address] Creatinine [Mass/Vol] 1.19 mg/dL Normal 0.50-1.20 [facility] Comment on above: Performed By: #### S URGP #### [facility] (DEFAULT) [address] [place] [address] GFR/1.73 sq M.predicted among non-blacks MDRD (S/P/Bld) [Vol rate/Area] 47 mL/min/{1.73_m2} Low >=60 [facility] Comment on above: Result Comment: Repo rted eGFR is based on the CKD-EPI 2020 equation using creatinine, age, and sex. Performed By: #### S URGP #### [facility] (DEFAULT) [address] [place] [address] Glucose [Mass/Vol] 88 mg/dL Normal Nonfastin -179 mg/dL; Fastin-99 [facility] Comment on above: Performed By: #### S URGP #### [facility] (DEFAULT) [address] [place] [address] Osmolality [Osmolality] 307 mosm/kg High 278-305 [facility] Comment on above: Performed By: #### S URGP #### [facility] (DEFAULT) [address] [place] [address] Potassium [Moles/Vol] 3.9 mmol/L Normal 3.5-5.0 [facility] Comment on above: Performed By: #### S URGP #### [facility] [place] (DEFAULT) [address] [place] [address] Sodium [Moles/Vol] 144 mmol/L Normal 135-145 [facility] Comment on above: Performed By: #### S URGP #### [facility] [place] (DEFAULT) [address] [place] [address] Urea nitrogen [Mass/Vol] 34 mg/dL High 7-25 [facility] Comment on above: Performed By: #### S URGP #### [facility] [place] (DEFAULT) [address] [place] [address] Urea nitrogen/Creatinine [Mass ratio] 29 mg/mg Normal [facility] Comment on above: Performed By: #### S URGP #### [facility] [place] (DEFAULT) [address] [place] [address] Anion gap [Moles/Vol] 14 mmol/L 7 - 17 mmol/L [facility] [place] Chloride [Moles/Vol] 108 mmol/L 98 - 10 8 mmol/L [facility] [place] CO2 [Moles/Vol] 25 mmol/L 21 - 31 mmol/L [facility] [place] Creatinine [Mass/Vol] 1.45 mg/dL High 0.50 - 1.20 mg/dL [facility] [place] eGFR, CKD-EPI, Female 37 Low - PINF [facility] [place] Glucose [Mass/Vol] 242 mg/dL High 70 - 179 mg/dL [facility] [place] Interpretation and review of laboratory results Abnormal [facility] [place] Osmolality Calc [Osmolality] 315 High [facility] [place] Potassium [Moles/Vol] 3.8 mmol/L 3.5 - 5.0 mmol/L [facility] [place] Sodium [Moles/Vol] 143 mmol/L 135 - 145 mmol/L [facility] [place] Urea nitrogen [Mass/Vol] 35 mg/dL High 7 - 25 mg/dL [facility] [place] Urea nitrogen/Creatinine [Mass ratio] 24 mg/mg [facility] [place] Anion gap [Moles/Vol] 14 mmol/L Normal 7-17 [facility] Comment on above: Performed By: #### X M #### [facility] [place] (DEFAULT) [address] [address] Chloride [Moles/Vol] 108 mmol/L Normal 98-108 [facility] Comment on above: Performed By: #### X M #### [facility] [place] (DEFAULT) [address] [address] CO2 [Moles/Vol] 25 mmol/L Normal 21-31 [facility] Comment on above: Performed By: #### X M #### [facility] [place] (DEFAULT) [address] [address] Creatinine [Mass/Vol] 1.45 mg/dL High 0.50-1.20 [facility] Comment on above: Performed By: #### X M #### [facility] [place] (DEFAULT) [address] [address] GFR/1.73 sq M.predicted among non-blacks MDRD (S/P/Bld) [Vol rate/Area] 37 mL/min/{1.73_m2} Low >=60 [facility] Comment on above: Result Comment: Repo rted eGFR is based on the CKD-EPI 2020 equation using creatinine, age, and sex. Performed By: #### X M #### [facility] (DEFAULT) [address] [address] Glucose [Mass/Vol] 242 mg/dL High Nonfastin -179 mg/dL; Fastin-99 [facility] Comment on above: Performed By: #### X M #### [facility] [place] (DEFAULT) [address] [place] [address] Osmolality [Osmolality] 315 mosm/kg High 278-305 [facility] Comment on above: Performed By: #### X M #### [facility] [place] (DEFAULT) [address] [place] [address] Potassium [Moles/Vol] 3.8 mmol/L Normal 3.5-5.0 [facility] Comment on above: Performed By: #### X M #### [facility] [place] (DEFAULT) [address] [address] [place] [address] 11807 Sodium [Moles/Vol] 143 mmol/L Normal 135-145 [facility] Comment on above: Performed By: #### X M #### [facility] (DEFAULT) [address] [place] [address] 24098 Urea nitrogen [Mass/Vol] 35 mg/dL High 7-25 [facility] Comment on above: Performed By: #### X M #### [facility] (DEFAULT) [address] [place] [address] 96344 Urea nitrogen/Creatinine [Mass ratio] 24 mg/mg Normal [facility] Comment on above: Performed By: #### X M #### [facility] (DEFAULT) [address] [place] [address] 30070 Cardiac echo study Procedure Ordered By: Ezequiel Figueroa on 08-05-2024 Ao ASC index 1.56 cm/m2 [facility] Work Phone: [phone] Ao peak fidel 1.23 m/s [facility] Work Phone: [phone] Ao SOV index 1.56 cm/m2 [facility] Work Phone: [phone] Ao STJ index 1.36 cm/m2 [facility] Work Phone: [phone] Ao VTI 24.81 cm [facility] Work Phone: [phone] Ascending aorta 2.97 cm [facility] Work Phone: [phone] AV LVOT peak gradient 4 mmHg [facility] Work Phone: [phone] AV mean gradient 4 mmHg [facility] Work Phone: [phone] AV peak gradient 6 mmHG [facility] Work Phone: [phone] AV valve area 2.72 cm2 [facility] Work Phone: [phone] AV Velocity Ratio 0.8 [facility] Work Phone: [phone] MARKUS (continuity Vmax) 2.55 cm2 [facility] Work Phone: [phone] MARKUS (continuity VTI) 2.72 cm2 [facility] Work Phone: [phone] MARKUS index (continuity Vmax) 1.34 m/s [facility] Work Phone: [phone] MARKUS index (continuity VTI) 1.43 cm2/m2 [facility] Work Phone: [phone] Avg e' pk fidel 0.09 m/s [facility] Work Phone: [phone] Body surface area Derived from formula 1.9 m2 [facility] Work Phone: [phone] BP EF 55 % [facility] Work Phone: [phone] DI (Vmax) 0.8 [facility] Work Phone: [phone] DI (VTI) 0.86 m/2 [facility] Work Phone: [phone] e' lateral pk fidel 0.0845 [facility]: [phone] e' lateral pk fidel 0.08 m/s [facility] Work Phone: [phone] e' septal pk fidel 0.0953 m/s [facility] Work Phone: [phone] e' septal pk fidel 0.1 m/s [facility] Work Phone: [phone] EF SP 2CH 56 [facility] Work Phone: [phone] EF SP 4CH 51 [facility] Work Phone: [phone] EST RAP 3 mmHg [facility] Work Phone: [phone] EST RVSP 29 mmHg [facility] Work Phone: [phone] FS 31 % [facility] Work Phone: [phone] IVC ostium 1.64 cm [facility] Work Phone: [phone] IVS 1.14 cm [facility] Work Phone: [phone] LA area 4CH 29.07 cm2 [facility] Work Phone: [phone] LA ESV BP (MOD) 86 mL [facility] Work Phone: [phone] LA ESV BP (MOD) index 45 mL/m2 [facility] Work Phone: [phone] LA ESV SP 2CH (MOD) 81 mL [facility] Work Phone: [phone] LA ESV SP 4CH (MOD) 93 mL [facility] Work Phone: [phone] LV EDV BP 88 mL [facility] Work Phone: [phone] LV EDV SP 2CH 85 [facility] Work Phone: [phone] LV EDV SP 4CH 86 mL [facility] Work Phone: [phone] LV ESV BP 40 mL [facility] Work Phone: [phone] LV ESV SP 2CH 37 mL [facility] Work Phone: [phone] LV ESV SP 4CH 42 [facility] Work Phone: [phone] LV mass 146.48 g [facility] Work Phone: [phone] LV Mass Index 77.1 g/m2 [facility] Work Phone: [phone] LV RWT 0.56 [facility] Work Phone: [phone] LV stroke volume BP (ml) 48 [facility] Work Phone: [phone] LV stroke volume index BP 25.26 mL/m2 [facility] Work Phone: [phone] LVIDD 3.93 cm [facility] Work Phone: [phone] LVIDS 2.7 cm [facility] Work Phone: [phone] LVOT area 3.17 cm2 [facility] Work Phone: [phone] LVOT diameter 2.01 cm [facility] Work Phone: [phone] LVOT peak fidel 0.99 m/s [facility] Work Phone: [phone] LVOT peak VTI 21.3 cm [facility] Work Phone: [phone] LVOT stroke volume 68 cm3 [facility] Work Phone: [phone] LVOT stroke volume index 35.55 ml/m2 [facility] Work Phone: [phone] MV mean gradient 3 mmHg [facility] Work Phone: [phone] MV peak gradient 6 mmHg [facility] Work Phone: [phone] MV valve area by continuity eq 2.61 cm2 [facility] Work Phone: [phone] MV VTI 25.92 cm [facility] Work Phone: [phone] MVA (continuity VTI) 2.6 cm [facility] Work Phone: [phone] [facility]SU AV VTI RATIO PRE STRESS 0.86 [facility] Work Phone: OSU ECHO LV BIPLANE SYSTOLIC VOLUME INDEX 21.05 mL/m2 [facility] Work Phone: OSU ECHO LV BP DIASTOLIC VOLUME INDEX 46.32 mL/m2 [facility] Work Phone: PV mean gradient 3 mmHg [facility]: PV peak gradient 6 mmHg [facility] Work Phone: PV PK FIDEL 1.23 m/s [facility] Work Phone: PW 1.11 cm [facility] Work Phone: RA area 4CH (MOD) 22.74 cm2 [facility] Work Phone: RA vol index 4CH (MOD) 36.32 mL/m2 O [facility] Work Phone: Right atrium volume 4 chamber method of disks 69 mL [facility] Work Phone: RV Area diastolic 17.5 cm2 [facility] Work Phone: RV Area systolic 11.9 cm2 [facility] Work Phone: RV basal diam 4.56 cm [facility] Work Phone: RV Fractional area change 32 % [facility] Work Phone: RV long diam 6.91 cm [facility] Work Phone: RV mid diam 2.91 cm [facility] Work Phone: RV S' 12.81 cm/s [facility] Work Phone: RVOT peak gradient 5 mmHg [facility] Work Phone: RVOT peak fidel 1.07 m/s [facility] Work Phone: [phone] RVOT peak VTI 20.1 cm [facility] Work Phone: [phone] Sinus 2.97 cm [facility] Work Phone: [phone] STJ 2.58 cm [facility] Work Phone: [phone] Stroke Volume 68 cm/mL [facility] Work Phone: [phone] Stroke volume index 36 [facility] Work Phone: [phone] TAPSE 2.08 cm [facility] Work Phone: [phone] TR pk grad 26 mmHg [facility] Work Phone: [phone] TR pk fidel 2.53 m/s [facility] Work Phone: [phone] [facility] Work Phone: Cardiac echo study Procedure on 08-05-[address] [facility] Radiology Study observation (narrative) [facility] ECHOCARDIOGRAMon 08-05-2024 Echocardiography ? No prior [...] from the original result were not included. [facility] Facility [facility] Patient Information Patient Name Lindsay Acuna Legal [...] Role Read Date Ezequiel Figueroa DO Echo [place] 08/05/2024 Left Heart Measurements LV - Systole [...] long di (more content not included)... Normal [facility] GLUCOSE POCon 08-05-2024 Glucose [Mass/Vol] 228 mg/dL High 70 - 179 mg/dL [facility] Interpretation and review of laboratory results Abnormal [facility] POC Sample Type CAPBL [facility] IONIZED CALCIUM, WHOLE BLOOD on 08-05-2024 ICA 4.72 mg/dL Normal 4.60-5.30 [facility] Comment on above: Performed By: #### S URGP #### [facility] (DEFAULT) [address] [place] [address] ICA 4.69 mg/dL Normal 4.60-5.30 [facility] Comment on above: Performed By: #### S URGP #### [facility] (DEFAULT) [address] [place] [address] 91582 IONIZED CALCIUM, WHOLE BLOOD Ordered By: Jairo Layton on 08-05-2024 Calcium.ionized (Bld) [Moles/Vol] 4.69 mg/dL 4.60 - 5.30 mg/dL [facility] Interpretation and review of laboratory results Normal [facility] MAGNESIUMon 08-05-2024 Magnesium [Mass/Vol] 2.4 mg/dL Normal 1.6-2.6 [facility] Comment on above: Performed By: #### S URGP #### [facility] (DEFAULT) [address] [place] [address] 38922 Magnesium [Mass/Vol] 1.8 mg/dL 1.6 - 2 .6 mg/dL [facility] Magnesium [Mass/Vol] 1.8 mg/dL Normal 1.6-2.6 [facility] Comment on above: Performed By: #### X M #### [facility] (DEFAULT) [address] [place] [address] 19526 No Panel Informationon 08-05 Interpretation and review of laboratory results Normal [facility] PHOSPHATE, INORGANICon 08-05 Phosphorous 3.2 mg/dL Normal 2.2-4.6 [facility] Comment on above: Performed By: #### S URGP #### [facility] (DEFAULT) [address] [place] [address] 65263 Phosphate [Mass/Vol] 2.7 mg/dL 2.2 - 4 .6 mg/dL [facility] Phosphorous 2.7 mg/dL Normal 2.2-4.6 [facility] Comment on above: Performed By: #### X M #### [facility] (DEFAULT) [address] [place] [address] 57181 [facility] FACTOR AGOrde red By: Madhavi Mcelroy on 08-05-2024 Interpretation and review of laboratory results Abnormal [facility] vWf Ag actual/normal IA (PPP) [Relative mass conc] 230 % High 50 - 180 % [facility] CBC,PLATELETSon 08-04-2024 Erythrocyte distribution width (RBC) [Ratio] 13.7 % 10.8 - 14.9 % [facility] Hematocrit (Bld) [Volume fraction] 40.8 % 34.9 - 44.3 % [facility] Hemoglobin (Bld) [Mass/Vol] 12.7 g/dL 11.4 - 15.2 g/dL [facility] Interpretation and review of laboratory results Abnormal [facility] MCH (RBC) [Entitic mass] 28.7 pg 25.9 - 33.9 pg [facility] MCHC (RBC) [Mass/Vol] 31.1 g/dL Low 31.4 - 35.9 g/dL [facility] MCV (RBC) [Entitic vol] 92.1 fL 79.6 - 97.7 fL [facility] Platelet mean volume (Bld) [Entitic vol] 10.8 fL 8.5 - 12.2 fL [facility] Platelets (Bld) [#/Vol] 228 10*3/uL 150 - 393 K/uL [facility] RBC (Bld) [#/Vol] 4.43 10*6/uL [facility] WBC (Bld) [#/Vol] 11.41 10*3/uL High 3.99 - 11.19 K/uL [facility] Hematocrit (Bld) [Volume fraction] 40.8 % Normal 34.9-44.3 [facility] Comment on above: Performed By: #### H [facility] #### [facility] (DEFAULT) [address] [place] [address] 31413 Hemoglobin (Bld) [Mass/Vol] 12.7 g/dL Normal 11.4-15.2 [facility] Comment on above: Performed By: #### [facility] #### [facility] (DEFAULT) [address] [place] [address] 95671 MCV (RBC) [Entitic vol] 92.1 fL Normal 79.6-97.7 O [facility] Comment on above: Performed By: #### H EMOGC #### [facility] (DEFAULT) [address] [place] [address] 48136 Mean Cell Hgb 28.7 pg Normal 25.9-33.9 [facility] Comment on above: Performed By: #### H EMOGC #### [facility] (DEFAULT) [address] [place] [address] 92844 Mean Cell Hgb Conc 31.1 g/dL Low 31.4-35.9 [facility] Comment on above: Performed By: #### H EMOGC #### [facility] (DEFAULT) [address] [place] [address] 24706 Platelet mean volume (Bld) [Entitic vol] 10.8 fL Normal 8.5-12.2 [facility] Comment on above: Performed By: #### H EMOGC #### [facility] (DEFAULT) [address] [place] [address] 54028 Platelets (Bld) [#/Vol] 228 10*3/uL Normal 150-393 [facility] Comment on above: Performed By: #### H EMOGC #### [facility] (DEFAULT) [address] [place] [address] 69154 RBC (Bld) [#/Vol] 4.43 10*6/uL Normal 3.91-5.04 [facility] Comment on above: Performed By: #### H EMOGC #### [facility] (DEFAULT) [address] [place] [address] 60180 RBC Distribution 13.7 % Normal 10.8-14.9 [facility] Comment on above: Performed By: #### H EMOGC #### [facility] (DEFAULT) [address] [place] [address] 48846 WBC (Bld) [#/Vol] 11.41 10*3/uL High 3.99-11.19 [facility] Comment on above: Performed By: #### H EMO #### [facility] (DEFAULT) [address] [place] [id number] CHEM 7 (LYTES,BUN,CREA,GLUC) Ordered By: Lizette Canseco on 08-04-2024 Anion gap [Moles/Vol] 16 mmol/L 7 - 17 mmol/L [facility] Chloride [Moles/Vol] 109 mmol/L High 98 - 10 8 mmol/L [facility] CO2 [Moles/Vol] 24 mmol/L 21 - 31 mmol/L [facility] Creatinine [Mass/Vol] 1.47 mg/dL High 0.50 - 1.20 mg/dL [facility] eGFR, CKD-EPI, Female 36 Low - PINF [facility] Glucose [Mass/Vol] 181 mg/dL High 70 - 179 mg/dL [facility] Interpretation and review of laboratory results Abnormal [facility] Osmolality Calc [Osmolality] 312 High [facility] Potassium [Moles/Vol] 4 mmol/L 3.5 - 5.0 mmol/L [facility] Sodium [Moles/Vol] 145 mmol/L 135 - 145 mmol/L [facility] Urea nitrogen [Mass/Vol] 26 mg/dL High 7 - 25 mg/dL [facility] Urea nitrogen/Creatinine [Mass ratio] 18 mg/mg [facility] CHEM 7 (LYTES,BUN,CREA,GLUC) on 08-04-2024 Anion gap [Moles/Vol] 16 mmol/L Normal 7-17 [facility] Comment on above: Performed By: #### S URGP #### [facility] (DEFAULT) [address] [place] [address] Chloride [Moles/Vol] 109 mmol/L High 98-108 [facility] Comment on above: Performed By: #### S URGP #### [facility] (DEFAULT) [address] [place] [address] 82219 CO2 [Moles/Vol] 24 mmol/L Normal 21-31 [facility] Comment on above: Performed By: #### S URGP #### [facility] (DEFAULT) [address] [place] [address] 22198 Creatinine [Mass/Vol] 1.47 mg/dL High 0.50-1.20 [facility] Comment on above: Performed By: #### S URGP #### [facility] (DEFAULT) [address] [place] [address] 32474 GFR/1.73 sq M.predicted among non-blacks MDRD (S/P/Bld) [Vol rate/Area] 36 mL/min/{1.73_m2} Low >=60 [facility] Comment on above: Result Comment: Repo rted eGFR is based on the CKD-EPI 2020 equation using creatinine, age, and sex. Performed By: #### S URGP #### [facility] (DEFAULT) [address] [place] [address] 69662 Glucose [Mass/Vol] 181 mg/dL High Nonfastin -179 mg/dL; Fastin-99 [facility] Comment on above: Performed By: #### S URGP #### [facility] (DEFAULT) [address] [place] [address] 02618 Osmolality [Osmolality] 312 mosm/kg High 278-305 [facility] Comment on above: Performed By: #### S URGP #### [facility] (DEFAULT) [address] [place] [address] 59262 Potassium [Moles/Vol] 4.0 mmol/L Normal 3.5-5.0 [facility] Comment on above: Performed By: #### S URGP #### [facility] (DEFAULT) [address] [place] [address] 56089 Sodium [Moles/Vol] 145 mmol/L Normal 135-145 [facility] Comment on above: Performed By: #### S URGP #### [facility] (DEFAULT) [address] [place] [address] Urea nitrogen [Mass/Vol] 26 mg/dL High 7-25 [facility] Comment on above: Performed By: #### S URGP #### [facility] (DEFAULT) [address] [place] [address] Urea nitrogen/Creatinine [Mass ratio] 18 mg/mg Normal [facility] Comment on above: Performed By: #### S URGP #### [facility] (DEFAULT) [address] [place] [address] CT HEAD WITHOUT CONTRASTon 0 08-04-2024 CT [...] sinuses are clear. IMPRESSION: Stable exam. Normal [facility] CT Head WO contraston 2024 RADIOLOGY RADIOLOGY [facility] CT Head WO contrastOrdered B y: Chirag Mendenhall on 08-04-2024 [facility] Work Phone: GLUCOSE POCon 08-04-2024 Glucose [Mass/Vol] 227 mg/dL High 70 - 179 mg/dL [facility] Interpretation and review of laboratory results Abnormal [facility] POC Sample Type [facility] Glucose [Mass/Vol] 235 mg/dL High 70 - 179 mg/dL [facility] Interpretation and review of laboratory results Abnormal [facility] POC Sample Type [facility] Glucose [Mass/Vol] 215 mg/dL High 70 - 179 mg/dL [facility] Interpretation and review of laboratory results Abnormal [facility] POC Sample Type CAPBL [facility] Glucose [Mass/Vol] 178 mg/dL 70 - 179 mg/dL [facility] Glucose [Mass/Vol] 157 mg/dL 70 - 179 mg/dL [facility] Glucose [Mass/Vol] 271 mg/dL High 70 - 179 mg/dL [facility] Glucose [Mass/Vol] 267 mg/dL High 70 - 179 mg/dL [facility] Glucose [Mass/Vol] 246 mg/dL High 70 - 179 mg/dL [facility] IONIZED CALCIUM, WHOLE BLOOD Ordered By: Laura Rodriguez on 08-04-2024 Calcium.ionized (Bld) [Moles/Vol] 4.8 mg/dL 4.60 - 5.30 mg/dL [facility] Interpretation and review of laboratory results Normal [facility] IONIZED CALCIUM, WHOLE BLOOD on 08-04-2024 ICA 4.80 mg/dL Normal 4.60-5.30 [facility] Comment on above: Performed By: #### T YPEC #### [facility] (DEFAULT) [address] [place] [address] 96659 MAGNESIUMon 08-04-2024 Magnesium [Mass/Vol] 1.9 mg/dL 1.6 - 2 .6 mg/dL [facility] Magnesium [Mass/Vol] 1.9 mg/dL Normal 1.6-2.6 [facility] Comment on above: Performed By: #### X M #### [facility] (DEFAULT) [address] [place] [address] 85550 No Panel Informationon 08-04 POC Sample Type CAPBL [facility] Interpretation and review of laboratory results Abnormal [facility] Interpretation and review of laboratory results Normal [facility] PHOSPHATE, INORGANICon 08-04 Phosphate [Mass/Vol] 2.8 mg/dL 2.2 - 4 .6 mg/dL [facility] Phosphorous 2.8 mg/dL Normal 2.2-4.6 [facility] Comment on above: Performed By: #### X M #### [facility] (DEFAULT) [address] [address] SODIUMon 08-04-2024 Interpretation and review of laboratory results Normal [facility] Sodium [Moles/Vol] 142 mmol/L 135 - 145 mmol/L [facility] Sodium [Moles/Vol] 142 mmol/L Normal 135-145 [facility] Comment on above: Order Comment: While on 3% Hypertonic Saline. Performed By: #### S URGP #### [facility] (DEFAULT) [address] [place] [address] 64168 Interpretation and review of laboratory results Normal [facility] Sodium [Moles/Vol] 141 mmol/L 135 - 145 mmol/L [facility] Sodium [Moles/Vol] 141 mmol/L Normal 135-145 [facility] Comment on above: Order Comment: [...] By: #### B LDCULT #### [facility] (DEFAULT) [address] [place] [address] 40098 Interpretation and review of laboratory results Normal [facility] Sodium [Moles/Vol] 143 mmol/L 135 - 145 mmol/L [facility] Sodium [Moles/Vol] 143 mmol/L Normal 135-145 [facility] Comment on above: Order Comment: While on 3% Hypertonic Saline. Performed By: #### [facility] #### [facility] (DEFAULT) [address] [place] [address] 05990 ABORH TYPE RECONFIRMATIONon 08-03-2024 ABO/RH(D) TYPE Negative [facility] ABO/RH(D) TYPE Negative Normal [facility] Comment on above: Performed By: #### T YPEC #### [facility] (DEFAULT) [address] [place] [address] 90489 CBC,PLATELETSon 08-03-2024 Erythrocyte distribution width (RBC) [Ratio] 13.2 % 10.8 - 14.9 % [facility] Hematocrit (Bld) [Volume fraction] 42.8 % 34.9 - 44.3 % [facility] Hemoglobin (Bld) [Mass/Vol] 13.5 g/dL 11.4 - 15.2 g/dL [facility] Interpretation and review of laboratory results Normal [facility] MCH (RBC) [Entitic mass] 29.2 pg 25.9 - 33.9 pg [facility] MCHC (RBC) [Mass/Vol] 31.5 g/dL 31.4 - 35.9 g/dL [facility] MCV (RBC) [Entitic vol] 92.4 fL 79.6 - 97.7 fL [facility] Platelet mean volume (Bld) [Entitic vol] 11.2 fL 8.5 - 12.2 fL [facility] Platelets (Bld) [#/Vol] 227 10*3/uL 150 - 393 K/uL [facility] RBC (Bld) [#/Vol] 4.63 10*6/uL [facility] WBC (Bld) [#/Vol] 8.43 10*3/uL 3.99 - 11.19 K/uL [facility] Hematocrit (Bld) [Volume fraction] 42.8 % Normal 34.9-44.3 [facility] Comment on above: Performed By: #### X M #### [facility] (DEFAULT) [address] [place] [address] 32349 Hemoglobin (Bld) [Mass/Vol] 13.5 g/dL Normal 11.4-15.2 [facility] Comment on above: Performed By: #### X M #### [facility] (DEFAULT) [address] [place] [address] 13290 MCV (RBC) [Entitic vol] 92.4 fL Normal 79.6-97.7 O [facility] Comment on above: Performed By: #### X M #### [facility] (DEFAULT) [address] [place] [address] 43261 Mean Cell Hgb 29.2 pg Normal 25.9-33.9 [facility] Comment on above: Performed By: #### X M #### [facility] (DEFAULT) [address] [place] [address] 52928 Mean Cell Hgb Conc 31.5 g/dL Normal 31.4-35.9 [facility] Comment on above: Performed By: #### X M #### [facility] (DEFAULT) [address] [place] [address] 87632 Platelet mean volume (Bld) [Entitic vol] 11.2 fL Normal 8.5-12.2 [facility] Comment on above: Performed By: #### X M #### [facility] (DEFAULT) [address] [place] [address] 50622 Platelets (Bld) [#/Vol] 227 10*3/uL Normal 150-393 [facility] Comment on above: Performed By: #### X M #### [facility] (DEFAULT) [address] [place] [address] 48610 RBC (Bld) [#/Vol] 4.63 10*6/uL Normal 3.91-5.04 [facility] Comment on above: Performed By: #### X M #### [facility] (DEFAULT) [address] [place] [address] 01771 RBC Distribution 13.2 % Normal 10.8-14.9 [facility] Comment on above: Performed By: #### X M #### [facility] (DEFAULT) [address] [place] [address] 93612 WBC (Bld) [#/Vol] 8.43 10*3/uL Normal 3.99-11.19 [facility] Comment on above: Performed By: #### X M #### [facility] (DEFAULT) [address] [place] [address] 05125 CHEM 7 (LYTES,BUN,CREA,GLUC) on 08-03-2024 Anion gap [Moles/Vol] 16 mmol/L 7 - 17 mmol/L [facility] Chloride [Moles/Vol] 103 mmol/L 98 - 10 8 mmol/L [facility] CO2 [Moles/Vol] 23 mmol/L 21 - 31 mmol/L [facility] Creatinine [Mass/Vol] 1.35 mg/dL High 0.50 - 1.20 mg/dL [facility] eGFR, CKD-EPI, Female 40 Low - PINF [facility] Glucose [Mass/Vol] 151 mg/dL 70 - 179 mg/dL [facility] Interpretation and review of laboratory results Abnormal [facility] Osmolality Calc [Osmolality] 295 [facility] Potassium [Moles/Vol] 4.3 mmol/L 3.5 - 5.0 mmol/L [facility] Sodium [Moles/Vol] 138 mmol/L 135 - 145 mmol/L [facility] Urea nitrogen [Mass/Vol] 18 mg/dL 7 - 25 mg/dL [facility] Urea nitrogen/Creatinine [Mass ratio] 13 mg/mg [facility] Anion gap [Moles/Vol] 16 mmol/L Normal 7-17 [facility] Comment on above: Performed By: #### S URGP #### U [facility] (DEFAULT) [address] [place] [address] 80926 Chloride [Moles/Vol] 103 mmol/L Normal 98-108 [facility] Comment on above: Performed By: #### S URGP #### [facility] (DEFAULT) [address] [place] [address] 01173 CO2 [Moles/Vol] 23 mmol/L Normal 21-31 [facility] Comment on above: Performed By: #### S URGP #### [facility] (DEFAULT) [address] [place] [address] 32298 Creatinine [Mass/Vol] 1.35 mg/dL High 0.50-1.20 [facility] Comment on above: Performed By: #### S URGP #### [facility] (DEFAULT) [address] [place] [address] 57100 GFR/1.73 sq M.predicted among non-blacks MDRD (S/P/Bld) [Vol rate/Area] 40 mL/min/{1.73_m2} Low >=60 [facility] Comment on above: Result Comment: Repo rted eGFR is based on the CKD-EPI 2020 equation using creatinine, age, and sex. Performed By: #### S URGP #### [facility] (DEFAULT) [address] [place] [address] 65895 Glucose [Mass/Vol] 151 mg/dL Normal Nonfastin -179 mg/dL; Fastin-99 [facility] Comment on above: Performed By: #### S URGP #### [facility] (DEFAULT) [address] [place] [address] 12627 Osmolality [Osmolality] 295 mosm/kg Normal 278-305 [facility] Comment on above: Performed By: #### S URGP #### [facility] (DEFAULT) [address] [place] [address] 60805 Potassium [Moles/Vol] 4.3 mmol/L Normal 3.5-5.0 [facility] Comment on above: Result Comment: Spec imen slightly hemolyzed. Potassium results may be falsey elevated by more than 0.5 mmol/L. Consider recollection. Performed By: #### S URGP #### [facility] (DEFAULT) [address] [place] [address] 93325 Sodium [Moles/Vol] 138 mmol/L Normal 135-145 [facility] Comment on above: Performed By: #### S URGP #### [facility] (DEFAULT) [address] [place] [address] 34314 Urea nitrogen [Mass/Vol] 18 mg/dL Normal 7-25 [facility] Comment on above: Performed By: #### S URGP #### [facility] (DEFAULT) [address] [place] [address] 09110 Urea nitrogen/Creatinine [Mass ratio] 13 mg/mg Normal [facility] Comment on above: Performed By: #### S URGP #### [facility] (DEFAULT) [address] [place] [address] CHEST WITH CONTRAST VASCU LAR TRAUMAon [...] have reviewed and approved this report. Normal [facility] CT Cervical spine WO contras ton 08-03-2024 RADIOLOGY RADIOLOGY [facility] CT Cervical spine WO contras tOrdered By: Alissa Chun on 08-03-2024 [facility] Work Phone: CT Chest W contrast Seth RADIOLOGY RADIOLOGY [facility] CT Chest W contrast IVOrdere d By: Kayla Newell on 08-03-2024 [facility] Work Phone: CT HEAD WITHOUT CONTRASTon 0 [...] since the MRI from earlier today Normal [facility] CT Head WO contraston 2024 Radiology Study observation (narrative) [facility] RADIOLOGY RADIOLOGY [facility] Radiology Study observation (narrative) [facility] CT ORBITS WITHOUT CONTRASTon 08-03-2024 CT [...] basal ganglia hyperdensity concerning for hemorrhage. Normal [facility] CT Orbit WO contraston 08-03 RADIOLOGY RADIOLOGY [facility] CT SPINE CERVICAL WITHOUT CO [...] No evidence of acute fractures identified Normal [facility] EXTRA MICROon 08-03-2024 [facility] GLUCOSE POCon 08-03-2024 Glucose [Mass/Vol] 161 mg/dL 70 - 179 mg/dL [facility] POC Sample Type CAPBL [facility] IONIZED CALCIUM, WHOLE BLOOD Ordered By: Alejandra Ness on 08-03-2024 Calcium.ionized (Bld) [Moles/Vol] 4.24 mg/dL Low 4.60 - 5.30 mg/dL [facility] Interpretation and review of laboratory results Abnormal [facility] IONIZED CALCIUM, WHOLE BLOOD on 08-03-2024 ICA 4.24 mg/dL Low 4.60-5.30 [facility] Comment on above: Performed By: #### [facility] #### [facility] (DEFAULT) [address] [place] [address] MAGNESIUMon 08-03-2024 Magnesium [Mass/Vol] 2.1 mg/dL 1.6 - 2 .6 mg/dL [facility] Magnesium [Mass/Vol] 2.1 mg/dL Normal 1.6-2.6 [facility] Comment on above: Performed By: #### S URGP #### [facility] (DEFAULT) [address] [place] [address] MR Brain WO contraston 08-03 RADIOLOGY RADIOLOGY [facility] Radiology Study observation (narrative) [facility] MR Cervical spine WO contras ton 08-03-2024 RADIOLOGY RADIOLOGY [facility] Radiology Study observation (narrative) [facility] MR Cervical spine WO contras tOrdered By: Kuldeep Tavares on 08-03-2024 [facility] Work Phone: MRI BRAIN WITHOUT CONTRASTon 08-03-2024 [...] tiny 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 Normal [facility] MRI SPINE CERVICAL WITHOUT C [...] have reviewed and approved this report. Normal [facility] NT-PRO B-TYPE NATRIURETIC PE PTIDEon 08-03-2024 Interpretation and review of laboratory results Abnormal [facility] Natriuretic peptide.B prohormone N-Terminal IA [Mass/Vol] 1115 pg/mL High NINF - 540 pg/mL [facility] No Panel Informationon 08-03 RADIOLOGY RADIOLOGY [facility] Interpretation and review of laboratory results Normal [facility] No Panel InformationOrdered By: Richard Sánchez on 08-03-2024 [facility] Work Phone: PHOSPHATE, INORGANICon 08-03 Phosphate [Mass/Vol] 3.5 mg/dL 2.2 - 4 .6 mg/dL [facility] Phosphorous 3.5 mg/dL Normal 2.2-4.6 [facility] Comment on above: Performed By: #### S URGP #### [facility] (DEFAULT) [address] [place] [address] SCREEN: MRSA/MSSAOrdered By: Gail Collado on 08-03-2024 Interpretation and review of laboratory results Normal [facility] Methicillin Resistant S. Aureus By Pcr Negative Negative [facility] Staphylococcus Aureus By Pcr Negative Negative [facility] SODIUMon 08-03-2024 Interpretation and review of laboratory results Normal [facility] Sodium [Moles/Vol] 139 mmol/L 135 - 145 mmol/L [facility] Sodium [Moles/Vol] 139 mmol/L Normal 135-145 [facility] Comment on above: Order Comment: While on 3% Hypertonic Saline. Performed By: #### N AO ####[facility] (DEFAULT)[address] [place] [address] Interpretation and review of laboratory results Abnormal [facility] Sodium [Moles/Vol] 134 mmol/L Low 135 - 145 mmol/L [facility] Sodium [Moles/Vol] 134 mmol/L Low 135-145 [facility] Comment on above: Order Comment: While on 3% Hypertonic Saline. Performed By: #### H EMOGC #### [facility] (DEFAULT) [address] [place], [place] [id number] XR ABDOMEN 1 VIEW PORTABLEon 08-03-2024 XR [...] proximal second portion of the duodenum. Normal [facility] XR Abdomen Single viewon RADIOLOGY RADIOLOGY [facility] Radiology Study observation (narrative) [facility] XR Abdomen Single viewOrdere d By: Huey Gibson on 08-03-2024 [facility] XR ELBOW RIGHT 2 VIEWSon XR ELBOW RIGHT 2 VIEWS EXAM: XR ELBOW RI GHT 2 VIEWS, XR HUMERUS RIGHT 2+ VIEWS, XR WRIST RIGHT 3+ VIEWS, 08/02/2024 23:24 PM (accession [id number]), 08/02/2024 23:24 PM (accession [id number]), 08/02/2024 23:23 PM (accession [id number]) COMPARISON: No prior studies available for comparison. [...] dislocation. IMPRESSION: No acute osseous abnormality. Normal [facility] XR HUMERUS RIGHT 2+ VIEWSon 08-03-2024 XR HUMERUS RIGHT 2+ VIEWS EXAM: XR ELBOW RIGHT 2 VIEWS, XR HUMERUS RIGHT 2+ VIEWS, XR WRIST RIGHT 3+ VIEWS, 08/02/2024 23:24 PM (accession [id number]), 08/02/2024 23:24 PM (accession [id number]), 08/02/2024 23:23 PM (accession [id number]) COMPARISON: No prior studies available for comparison. [...] dislocation. IMPRESSION: No acute osseous abnormality. Normal [facility] XR WRIST RIGHT 3+ VIEWSon XR WRIST RIGHT 3+ VIEWS EXAM: XR ELBOW R IGHT 2 VIEWS, XR HUMERUS RIGHT 2+ VIEWS, XR WRIST RIGHT 3+ VIEWS, 08/02/2024 23:24 PM (accession [id number]), 08/02/2024 23:24 PM (accession [id number]), 08/02/2024 23:23 PM (accession [id number]) COMPARISON: No prior studies available for comparison. [...] dislocation. IMPRESSION: No acute osseous abnormality. Normal [facility] 12 Lead EKGon 08-02-2024 12 Lead EKG [facility] Cardiovascular Services [address] [place] [address] 12 Lead EKG 08/02/24 1309 MR#: [id number] Acct: [id number] Name: LINDSAY ACUNA Rep #: [id number] : 1945 78 From: Mj Benavides MD [...] ECG Confirmed by MAKAYLA LAWSON, MJ ([id number]), sports editor NAIMA BEARDEN ([id number]) on 08/05/2024 6:47:07 AM Referred By: Confirmed By: MJ BENAVIDES MD 08/05/24 0647 Date Mj Benavides MD CC: Dr. Pieter Morgan MD; Dr. Kameron Caruso MD Signed Normal [facility] Absolute lymphocyte countOrd ered By: Pieter Morgan on 08-02-2024 Lymphocytes Auto (Unsp spec) [#/Vol] 1.56 10*3/uL 0.83-4.51 [facility] Absolute neutrophil countOrd ered By: Pieter Morgan on 08-02-2024 Neutrophils (Bld) [#/Vol] 6.2 10*3/uL 2.0-7.7 [facility] Activated partial thrombopla stin time (aPTT) in platelet poor plasma by coagulation aOrdered By: Pieter Morgan on 08-02-2024 aPTT Coag (PPP) [Time] 28.4 s 24.1-36.2 [facility] Anion gap in Serum or Plasma Ordered By: Pieter Morgan on 08-02-2024 Anion gap [Moles/Vol] 12 mmol/L 5-15 [facility] Automated lymphocyte count a s percentage of total leukocytesOrdered By: Pieter Morgan on 08-02-2024 Lymphocytes/100 WBC Auto (Unsp spec) 17.9 % Low [facility] BUN/creatinine ratioOrdered By: Pieter Morgan on 08-02-2024 Urea nitrogen/Creatinine [Mass ratio] 11.6 mg/mg 03-03 [facility] Basic Metabolic Profile (BMP )on 08-02-2024 BUN/CRE 11.6 RATIO Normal 03-03 [facility] Comment on above: Performed By: #### L 300.4310, L501.4021, L300.3900, L500.2500, L100.0100 #### [facility] [address] [place], [address] Calcium [Mass/Vol] 9.0 mg/dL Normal 7.6-11.0 [facility] Comment on above: Performed By: #### L 300.4310, L501.4021, L300.3900, L500.2500, L100.0100 #### [facility] [address] [place], [address] Chloride [Moles/Vol] 98 mmol/L Normal 98-108 [facility] Comment on above: Performed By: #### L 300.4310, L501.4021, L300.3900, L500.2500, L100.0100 #### [facility] [address] [place], [address] CO2 [Moles/Vol] 22.0 mmol/L Normal 21.0-32.0 [facility] Comment on above: Performed By: #### L 300.4310, L501.4021, L300.3900, L500.2500, L100.0100 #### [facility] [address] [place], [address] Creatinine [Mass/Vol] 1.74 mg/dL High 0.70-1.20 [facility] Comment on above: Performed By: #### L 300.4310, L501.4021, L300.3900, L500.2500, L100.0100 #### [facility] [address] [place], [address] ECRCL 27.14 ml/min Low 50-250 [facility] Comment on above: Performed By: #### L 300.4310, L501.4021, L300.3900, L500.2500, L100.0100 #### [facility] [address] [place], [address] GAP 12 Normal 5-15 [facility] Comment on above: Performed By: #### L 300.4310, L501.4021, L300.3900, L500.2500, L100.0100 #### [facility] [address] [place], [address] GFR/1.73 sq M.predicted among non-blacks MDRD (S/P/Bld) [Vol rate/Area] 29 mL/min/{1.73_m2} Low >60 [facility] Comment on above: Result Comment: mL/m in/1.73m2 CKD-EPI Creatinine Equation (2020) Performed By: #### L 300.4310, L501.4021, L300.3900, L500.2500, L100.0100 #### [facility] [address] [place], [address] Glucose [Mass/Vol] 235 mg/dL High 70-99 [facility] Comment on above: Performed By: #### L 300.4310, L501.4021, L300.3900, L500.2500, L100.0100 #### [facility] [address] [place], [address] Potassium [Moles/Vol] 4.2 mmol/L Normal 3.3-5.1 [facility] Comment on above: Performed By: #### L 300.4310, L501.4021, L300.3900, L500.2500, L100.0100 #### [facility] [address] [place], [address] Sodium [Moles/Vol] 132 mmol/L Low 133-145 [facility] Comment on above: Performed By: #### L 300.4310, L501.4021, L300.3900, L500.2500, L100.0100 #### [facility] [address] [place], [address] Urea nitrogen [Mass/Vol] 20 mg/dL High 4-19 [facility] Comment on above: Performed By: #### L 300.4310, L501.4021, L300.3900, L500.2500, L100.0100 #### [facility] [address] [place], [address] Basophil percentageOrdered B y: Pieter Morgan on 08-02-2024 Basophils/100 WBC (Bld) 0.5 % 0-[address] [facility] CBC W/Diff, Automatedon 07-14 Absolute Lymph 1.56 X10 3/uL Normal 0.83-4.51 [facility] Comment on above: Performed By: #### L 300.4310, L501.4021, L300.3900, L500.2500, L100.0100 #### [facility] [address] [place], [address] Absolute Neut 6.2 X10 3/uL Normal 2.0-7.7 [facility] Comment on above: Performed By: #### L 300.4310, L501.4021, L300.3900, L500.2500, L100.0100 #### [facility] [address] [place], [address] Basophils/100 WBC (Bld) 0.5 % Normal 0-[address] [facility] Comment on above: Performed By: #### L 300.4310, L501.4021, L300.3900, L500.2500, L100.0100 #### [facility] [address] [place], [address] Eosinophils/100 WBC (Bld) 1.0 % Normal 0-5 [facility] Comment on above: Performed By: #### L 300.4310, L501.4021, L300.3900, L500.2500, L100.0100 #### [facility] [address] [place], [address] Erythrocyte distribution width (RBC) [Ratio] 13.3 % Normal 11.6-14.6 [facility] Comment on above: Performed By: #### L 300.4310, L501.4021, L300.3900, L500.2500, L100.0100 #### [facility] [address] [place], [address] Hematocrit (Bld) [Volume fraction] 42.0 % Normal 37-47 [facility] Comment on above: Performed By: #### L 300.4310, L501.4021, L300.3900, L500.2500, L100.0100 #### [facility] [address] [place], [address] Hemoglobin (Bld) [Mass/Vol] 13.8 g/dL Normal 12.0-15.0 [facility] Comment on above: Performed By: #### L 300.4310, L501.4021, L300.3900, L500.2500, L100.0100 #### [facility] [address] [place], [address] IG% 0.300 Normal 0.0-0.9 [facility] Comment on above: Result Comment: IG% - Immature Granulocytes (promyelocytes, myelocytes and metamyelocytes) > 1% indicates that a LEFT SHIFT is Present. Performed By: #### L 300.4310, L501.4021, L300.3900, L500.2500, L100.0100 #### [facility] [address] [place], [address] Lymphocytes/100 WBC (Bld) 17.9 % Low 19-41 [facility] Comment on above: Performed By: #### L 300.4310, L501.4021, L300.3900, L500.2500, L100.0100 #### [facility] [address] [place], [address] MCH (RBC) [Entitic mass] 30.3 pg Normal 27.0-32.0 [facility] Comment on above: Performed By: #### L 300.4310, L501.4021, L300.3900, L500.2500, L100.0100 #### [facility] [address] [place], [address] MCHC (RBC) [Mass/Vol] 32.9 g/dL Normal 32-36 [facility] Comment on above: Performed By: #### L 300.4310, L501.4021, L300.3900, L500.2500, L100.0100 #### [facility] [address] [place], [address] MCV (RBC) [Entitic vol] 92.1 fL Normal 81-99 [facility] Comment on above: Performed By: #### L 300.4310, L501.4021, L300.3900, L500.2500, L100.0100 #### [facility] [address] [place], [address] Monocytes/100 WBC (Bld) 8.9 % Normal 0-[address] [facility] Comment on above: Performed By: #### L 300.4310, L501.4021, L300.3900, L500.2500, L100.0100 #### [facility] [address] [place], [address] Neutrophils/100 WBC (Bld) 71.4 % High 47-70 [facility] Comment on above: Performed By: #### L 300.4310, L501.4021, L300.3900, L500.2500, L100.0100 #### [facility] [address] [place], [address] Nucleated RBC (Bld) [#/Vol] 0 10*3/uL Normal 0-5 [facility] Comment on above: Performed By: #### L 300.4310, L501.4021, L300.3900, L500.2500, L100.0100 #### [facility] [address] [place], [address] Platelet mean volume (Bld) [Entitic vol] 10.7 fL Normal 6.2-12.0 [facility] Comment on above: Performed By: #### L 300.4310, L501.4021, L300.3900, L500.2500, L100.0100 #### [facility] [address] [place], [address] Platelets (Bld) [#/Vol] 214 10*3/uL Normal 150-450 [facility] Comment on above: Performed By: #### L 300.4310, L501.4021, L300.3900, L500.2500, L100.0100 #### [facility] [address] [place], [address] RBC (Bld) [#/Vol] 4.56 10*6/uL Normal 4.2-5.[address] [facility] Comment on above: Performed By: #### L 300.4310, L501.4021, L300.3900, L500.2500, L100.0100 #### [facility] [address] [place], [address] RDW SD 45.3 fl High 35.1-43.9 [facility] Comment on above: Performed By: #### L 300.4310, L501.4021, L300.3900, L500.2500, L100.0100 #### [facility] [address] [place], [address] WBC (Bld) [#/Vol] 8.7 10*3/uL Normal 4.4-11.0 [facility] Comment on above: Performed By: #### L 300.4310, L501.4021, L300.3900, L500.2500, L100.0100 #### [facility] [address] [facility] [place], [address] CBC,PLATELETSon 08-02-2024 Erythrocyte distribution width (RBC) [Ratio] 13.3 % 10.8 - 14.9 % [facility] Hematocrit (Bld) [Volume fraction] 43.8 % 34.9 - 44.3 % [facility] Hemoglobin (Bld) [Mass/Vol] 14 g/dL 11.4 - 15.2 g/dL [facility] Interpretation and review of laboratory results Normal [facility] MCH (RBC) [Entitic mass] 29.4 pg 25.9 - 33.9 pg [facility] MCHC (RBC) [Mass/Vol] 32 g/dL 31.4 - 35.9 g/dL [facility] MCV (RBC) [Entitic vol] 92 fL 79.6 - 97.7 fL [facility] Platelet mean volume (Bld) [Entitic vol] 10.8 fL 8.5 - 12.2 fL [facility] Platelets (Bld) [#/Vol] 245 10*3/uL 150 - 393 K/uL [facility] RBC (Bld) [#/Vol] 4.76 10*6/uL [facility] WBC (Bld) [#/Vol] 8.16 10*3/uL 3.99 - 11.19 K/uL [facility] Hematocrit (Bld) [Volume fraction] 43.8 % Normal 34.9-44.3 [facility] Comment on above: Performed By: #### B LDCULT #### [facility] (DEFAULT) [address] [place] [address] Hemoglobin (Bld) [Mass/Vol] 14.0 g/dL Normal 11.4-15.2 [facility] Comment on above: Performed By: #### B LDCULT #### [facility] (DEFAULT) [address] [place] [address] MCV (RBC) [Entitic vol] 92.0 fL Normal 79.6-97.7 [facility] Comment on above: Performed By: #### B LDCULT #### [facility] (DEFAULT) [address] [place] [address] Mean Cell Hgb 29.4 pg Normal 25.9-33.9 [facility] Comment on above: Performed By: #### B LDCULT #### [facility] (DEFAULT) [address] [place] [address] Mean Cell Hgb Conc 32.0 g/dL Normal 31.4-35.9 [facility] Comment on above: Performed By: #### B LDCULT #### [facility] (DEFAULT) [address] [place] [address] Platelet mean volume (Bld) [Entitic vol] 10.8 fL Normal 8.5-12.2 [facility] Comment on above: Performed By: #### B LDCULT #### [facility] (DEFAULT) [address] [place] [address] Platelets (Bld) [#/Vol] 245 10*3/uL Normal 150-393 [facility] Comment on above: Performed By: #### B LDCULT #### [facility] (DEFAULT) [address] [place] [address] RBC (Bld) [#/Vol] 4.76 10*6/uL Normal 3.91-5.04 [facility] Comment on above: Performed By: #### B LDCULT #### [facility] (DEFAULT) [address] [place] [address] RBC Distribution 13.3 % Normal 10.8-14.9 [facility] Comment on above: Performed By: #### B LDCULT #### [facility] (DEFAULT) [address] [place] [address] WBC (Bld) [#/Vol] 8.16 10*3/uL Normal 3.99-11.19 [facility] Comment on above: Performed By: #### B LDCULT #### [facility] (DEFAULT) [address] [place] [address] CHEM 7 (LYTES,BUN,CREA,GLUC) on 08-02-2024 Anion gap [Moles/Vol] 16 mmol/L 7 - 17 mmol/L [facility] Chloride [Moles/Vol] 105 mmol/L 98 - 10 8 mmol/L [facility] CO2 [Moles/Vol] 22 mmol/L 21 - 31 mmol/L [facility] Creatinine [Mass/Vol] 1.37 mg/dL High 0.50 - 1.20 mg/dL [facility] eGFR, CKD-EPI, Female 39 Low - PINF [facility] Glucose [Mass/Vol] 210 mg/dL High 70 - 179 mg/dL [facility] Osmolality Calc [Osmolality] 299 [facility] Potassium [Moles/Vol] 3.7 mmol/L 3.5 - 5.0 mmol/L [facility] Sodium [Moles/Vol] 139 mmol/L 135 - 145 mmol/L [facility] Urea nitrogen [Mass/Vol] 18 mg/dL 7 - 25 mg/dL [facility] Urea nitrogen/Creatinine [Mass ratio] 13 mg/mg [facility] Anion gap [Moles/Vol] 16 mmol/L Normal 7-17 [facility] Comment on above: Performed By: #### [facility] #### [facility] (DEFAULT) [address] [place] [address] Chloride [Moles/Vol] 105 mmol/L Normal 98-108 [facility] Comment on above: Performed By: #### H EMO #### [facility] (DEFAULT) [address] [place] [address] CO2 [Moles/Vol] 22 mmol/L Normal 21-31 [facility] Comment on above: Performed By: #### [facility] #### [facility] (DEFAULT) [address] [place] [address] Creatinine [Mass/Vol] 1.37 mg/dL High 0.50-1.20 [facility] Comment on above: Performed By: #### [facility] #### [facility] (DEFAULT) [address] [place] [address] GFR/1.73 sq M.predicted among non-blacks MDRD (S/P/Bld) [Vol rate/Area] 39 mL/min/{1.73_m2} Low >=60 [facility] Comment on above: Result Comment: Repo rted eGFR is based on the CKD-EPI 2020 equation using creatinine, age, and sex. Performed By: #### [facility] #### [facility] (DEFAULT) [address] [place] [address] Glucose [Mass/Vol] 210 mg/dL High Nonfastin -179 mg/dL; Fastin-99 [facility] Comment on above: Performed By: #### H EMOGC #### [facility] (DEFAULT) [address] [place] [address] Osmolality [Osmolality] 299 mosm/kg Normal 278-305 [facility] Comment on above: Performed By: #### H EMO #### [facility] (DEFAULT) [address] [place] [address] Potassium [Moles/Vol] 3.7 mmol/L Normal 3.5-5.0 [facility] Comment on above: Performed By: #### H EMO #### [facility] (DEFAULT) [address] [place] [address] Sodium [Moles/Vol] 139 mmol/L Normal 135-145 [facility] Comment on above: Performed By: #### H EMO #### [facility] (DEFAULT) [address] [place] [address] Urea nitrogen [Mass/Vol] 18 mg/dL Normal 7-25 [facility] Comment on above: Performed By: #### H EMO #### [facility] (DEFAULT) [address] [place] [address] Urea nitrogen/Creatinine [Mass ratio] 13 mg/mg Normal [facility] Comment on above: Performed By: #### H EMO #### [facility] (DEFAULT) [address] [place] [address] ABDOMEN/PELVIS WITH CONTR AST VASCULAR TRAUMAon [...] grade: None. Kidney trauma grade: None. Normal [facility] CT Abdomen and Pelvis W cont rast Seth 08-02-2024 RADIOLOGY RADIOLOGY [facility] CT Abdomen and Pelvis W cont rast IVOrdered By: Edson Head on 08-02-2024 [facility] Work Phone: CT Cervical spine WO contras ton 08-02-2024 Radiology Study observation (narrative) [facility] CT Orbit WO contraston 08-02 Radiology Study observation (narrative) [facility] Carbon dioxide, total [Moles /volume] in Central venous bloodOrdered By: Pieter Morgan on 08-02-2024 CO2 [Moles/Vol] 22.0 mmol/L 21.0-32.0 [facility] Chloride assayOrdered By: Racheal Morgan on 08-02-2024 Chloride [Moles/Vol] 98 mmol/L 98-108 [facility] Emergency Department Summary on 08-02-2024 Emergency Department Summary [facility] Medical Records Department [address] [place] [address] Emergency Department Summary 08/02/24 MR#: [id number] Acct: [id number] Name: LINDSAY ACUNA NOAH Rep #: [id number] : [id number] From: Pieter Morgan MD [...] the EMR. states they returned home from [facility] about 1.5-2 weeks ago, and they both had colds. He is better, but she is "on round 2." [facility] Medical History Paroxysmal atrial fibrillation with [...] normal respir (more content not included)... Normal [facility] Eosinophil percentageOrdered By: Pieter Morgan on 08-02-2024 Eosinophils/100 WBC (Bld) 1.0 % 0-5 [facility] Erythrocyte distribution wid th ratioOrdered By: Pieetr Morgan on 08-02-2024 Erythrocyte distribution width (RBC) [Ratio] 13.3 % 11.6-14.6 [facility] Erythrocyte distribution wid th standard deviationOrdered By: Pieter Morgan on 08-02-2024 Erythrocyte distribution width (RBC) [Entitic vol] 45.3 fL High 35.1-43.9 [facility] Erythrocyte distribution width (RBC) [Ratio] 45.3 fl High 35.1-43.9 [facility] Estimation of creatinine mackenzie aranceOrdered By: Pieter Morgan on 08-02-2024 Estimated Creatinine Clearance Calc 27.14 ml/min Low 50-250 [facility] GFR/1.73 sq M.predicted lana g non-blacks MDRD (S/P/Bld) [Vol rate/Area]Ordered By: Pieter Morgan on 08-02-2024 Estimated GFR (MDRD) Non-Af Amer 29 Low >60 [facility] Comment on above: mL/min/1.73m2 CKD-EP I Creatinine Equation (2020) Glomerular filtration rate ( GFR) estimation/1.73 sq m using serum, plasma, or whole bOrdered By: Pieter Morgan on 08-02-2024 GFR/1.73 sq M.predicted among non-blacks MDRD (S/P/Bld) [Vol rate/Area] 29 mL/min/{1.73_m2} Low >60 [facility] Comment on above: mL/min/1.73m2 CKD-EP I Creatinine Equation (2020) HEMOGLOBIN A1Con 08-02-2024 Average glucose Estimated from glycated hemoglobin (Bld) [Mass/Vol] 177 mg/dL [facility] HbA1c (Bld) [Mass fraction] 7.8 % High 4.7 - 5.6 % [facility] Interpretation and review of laboratory results Abnormal [facility] Glucose [Mass/Vol] 177 mg/dL Normal [facility] Comment on above: Performed By: #### H EMO #### [facility] (DEFAULT) [address] [place] [address] Hemoglobin A1C HPLC 7.8 % High 4.7-5.6 [facility] Comment on above: Performed By: #### H EMO #### [facility] (DEFAULT) [address] [place] [address] HEPATIC FUNCTION PANELon Albumin [Mass/Vol] 3.5 g/dL 3.5 - 5.0 g/dL [facility] ALP [Catalytic activity/Vol] 117 U/L 32 - 126 U/L [facility] ALT [Catalytic activity/Vol] 10 U/L 9 - 48 U/L [facility] AST [Catalytic activity/Vol] 17 U/L 10 - 39 U/L [facility] Bilirubin [Mass/Vol] 0.6 mg/dL NINF - 1.5 mg/dL [facility] Bilirubin.direct [Mass/Vol] 0.1 mg/dL [facility] mg/dL [facility] Protein [Mass/Vol] 6.3 g/dL Low 6.4 - 8.3 g/dL [facility] Albumin [Mass/Vol] 3.5 g/dL Normal 3.5-5.0 [facility] Comment on above: Performed By: #### [facility] #### [facility] (DEFAULT) [address] [place] [address] ALP [Catalytic activity/Vol] 117 U/L Normal 32-126 [facility] Comment on above: Performed By: #### H EMO #### [facility] (DEFAULT) [address] [place] [address] ALT [Catalytic activity/Vol] 10 U/L Normal 9-48 [facility] Comment on above: Performed By: #### H EMO #### [facility] (DEFAULT) [address] [place] [address]994 AST [Catalytic activity/Vol] 17 U/L Normal 10-39 [facility] Comment on above: Performed By: #### H EMO #### [facility] (DEFAULT) [address] [place] [address] Bilirubin [Mass/Vol] 0.6 mg/dL Normal <1.5 [facility] Comment on above: Performed By: #### H EMOGC #### [facility] (DEFAULT) [address] [place] [address] Bilirubin.indirect [Mass/Vol] 0.1 mg/dL Normal <0.3 [facility] Comment on above: Performed By: #### H EMOGC #### [facility] (DEFAULT) [address] [place] [address] Protein [Mass/Vol] 6.3 g/dL Low 6.4-8.3 [facility] Comment on above: Performed By: #### [facility] #### [facility] (DEFAULT) [address] [place] [address] HIGH SENSITIVITY TROPONIN I - SINGLE ORDERon 08-02-2024 Interpretation and review of laboratory results Normal [facility] Troponin I.cardiac High sensitivity method [Mass/Vol] 9 ng/L NINF - 34 ng/L [facility] hs-Troponin I 9 ng/L Normal <34 [facility] Comment on above: Order Comment: [...] By: #### B LDCULT #### [facility] (DEFAULT) [address] [place] [address] Hematocrit Auto (Bld) [Volum e fraction]Ordered By: Pieter Morgan on 08-02-2024 Hematocrit (Bld) [Volume fraction] 42.0 % 37-47 [facility] Hemoglobin measurementOrdere d By: Pieter Cathy on 08-02-2024 Hemoglobin (Bld) [Mass/Vol] 13.8 g/dL 12.0-15.0 [facility] Immature granulocytes/100 WB C Auto (Bld)Ordered By: Pieter Morgan on 08-02-2024 Immature granulocytes/100 WBC (Bld) 0.300 % 0.0-0.9 [facility] Comment on above: IG% - Immature Granu locytes (promyelocytes, myelocytes and metamyelocytes) > 1% indicates that a LEFT SHIFT is Present. Influenza virus A and B and SARS-CoV-2 (COVID-19) and Respiratory syncytial virus RNAOrdered By: Pieter Cathy on 08-02-2024 SARS-CoV-2 (COVID-19) RNA CHUCKY+probe Ql (Unsp spec) [facility] International normalized rat io (INR) calculationOrdered By: Pieter Morgan on 08-02-2024 INR Coag (Bld) [Relative time] 1.1 {INR} [facility] L499.0042on 08-02-2024 Trop T High Sen Normal <=14 [facility] Comment on above: Result Comment: Canc elled via OM: Order cancelled - Patient discharged Performed By: #### L 499.0042 ####[facility] [address] [place], [address] L499.0043on 08-02-2024 Trop T High Sen Normal <=14 [facility] Comment on above: Result Comment: Canc elled via OM: Order cancelled - Patient discharged Performed By: #### L 499.0043 ####[facility] [address] [place], [address] L501.4021on 08-02-2024 Trop T High Sen 38 ng/L High <=14 [facility] Comment on above: Performed By: #### L 300.4310, L501.4021, L300.3900, L500.2500, L100.0100 ####[facility] [address] [place], [place], [id number] LIPID PANEL WITH REFLEX TO M ANAMARIA LDLon 08-02-2024 Cholesterol [Mass/Vol] 141 mg/dL NINF - 200 mg/dL [facility] Cholesterol in HDL [Mass/Vol] 38 mg/dL Low 40 - PINF mg/dL [facility] Cholesterol in LDL [Mass/Vol] 84 mg/dL 0 - 99 mg/dL [facility] Cholesterol non HDL [Mass/Vol] 103 mg/dL NINF - 130 mg/dL [facility] Cholesterol.total/Alta sterol in HDL [Mass ratio] 3.7 {ratio} NINF - 4.5 [facility] Triglyceride [Mass/Vol] 96 mg/dL NINF - 150 mg/dL [facility] Calculated LDL Cholesterol 84 mg/dL Normal 0-99 [facility] Comment on above: Result Comment: [<10 0 mg/dL: Optimal] [100-129 mg/dL: Near Optimal] [130-159 mg/dL: Borderline High] [160-189 mg/dL: High] [>189 mg/dL: Very High] Performed By: #### [facility] #### [facility] (DEFAULT) [address] [place] [address] Cholesterol [Mass/Vol] 141 mg/dL Normal <200 [facility] Comment on above: Result Comment: [<20 0 mg/dL: Desirable] [200-239 mg/dL: Borderline High] [>239 mg/dL: High] Performed By: #### [facility] #### [facility] (DEFAULT) [address] [place] [address] Cholesterol in HDL [Mass/Vol] 38 mg/dL Low >=40 [facility] Comment on above: Result Comment: [<40 mg/dL: Low (High Risk)] [>59 mg/dL: High (Low Risk)] Performed By: #### H EMO #### [facility] (DEFAULT) [address] [place] [address]56 Non HDL Cholesterol 103 mg/dL Normal <130 [facility] Comment on above: Performed By: #### [facility] #### [facility] (DEFAULT) [address] [place] [address] Total Cholesterol/HDL Ratio 3.7 Normal <4.5 [facility] Comment on above: Performed By: #### [facility] #### [facility] (DEFAULT) [address] [place] [address]697 Triglyceride [Mass/Vol] 96 mg/dL Normal <150 [facility] Comment on above: Result Comment: [<15 0 mg/dL: Desirable] [150-199 mg/dL: Borderline] [200-499 mg/dL: High] [>500 mg/dL: Very High] Performed By: #### [facility] #### [facility] (DEFAULT) [address] [place] [address] Lymphocytes Auto (Unsp spec) [#/Vol]Ordered By: Pieter Morgan on 08-02-2024 Lymphocytes (Bld) [#/Vol] 1.56 10*3/uL 0.83-4.51 [facility] Lymphocytes/100 WBC Auto (Un sp spec)Ordered By: Pieter Morgan on 08-02-2024 Lymphocytes/100 WBC (Bld) 17.9 % Low 19-41 [facility] M100.678on 08-02-2024 M100.678 Pending SARS-CoV-2 (COVID 19) Negative INFLUENZA A Negative INFLUENZA B Negative RSV PCR Negative Normal [facility] Comment on above: Performed By: #### M 100.678 #### [facility] [address] [place], [place], [id number] MAGNESIUMon 08-02-2024 Magnesium [Mass/Vol] 1.2 mg/dL Low 1.6 - 2 .6 mg/dL [facility] Magnesium [Mass/Vol] 1.2 mg/dL Low 1.6-2.6 [facility] Comment on above: Performed By: #### [facility] #### [facility] (DEFAULT) [address] [place] [address] MCV (mean corpuscular volume ) determinationOrdered By: Pieter Morgan on 08-02-2024 MCV (RBC) [Entitic vol] 92.1 fL 81-[address] [facility] Mean corpuscular hemoglobin (MCH) determinationOrdered By: Pieter Morgan on 08-02-2024 MCH (RBC) [Entitic mass] 30.3 pg 27.0-32.0 [facility] Mean corpuscular hemoglobin concentration (MCHC) determinationOrdered By: Pieter Morgan on 08-02-2024 MCHC (RBC) [Mass/Vol] 32.9 g/dL 32-36 [facility] Mean platelet volume determi nationOrdered By: Pieter Morgan on 08-02-2024 Platelet mean volume (Bld) [Entitic vol] 10.7 fL 6.2-12.0 [facility] Monocyte percentageOrdered B y: Pieter Morgan on 08-02-2024 Monocytes/100 WBC (Bld) 8.9 % 0-[address] [facility] NT-PRO B-TYPE NATRIURETIC PE PTIDEon 08-02-2024 Natriuretic peptide B (Bld) [Mass/Vol] 1115 pg/mL High <=540 [facility] Comment on above: Performed By: #### [facility] #### [facility] (DEFAULT) [address] [place] [address] Neutrophil percentageOrdered By: Pieter Morgan on 08-02-2024 Neutrophils/100 WBC (Bld) 71.4 % High 47-70 [facility] No Panel Informationon 08-02 Radiology Study observation (narrative) [facility] Interpretation and review of laboratory results Abnormal [facility] No Panel InformationOrdered By: Pieter Morgan on 08-02-2024 Troponin T High Sensitivity 38 ng/L High <14 [facility] Nucleated red blood cell per centageOrdered By: Pieter Morgan on 08-02-2024 Nucleated RBC/100 WBC (Bld) [Ratio] 0 % 0-5 [facility] PT,INR,PTTon 08-02-2024 aPTT Coag (PPP) [Time] 26.9 s [facility] INR Coag (Bld) [Relative time] 1.1 {INR} 0.9 - 1.1 [facility] Interpretation and review of laboratory results Normal [facility] PT Coag (PPP) [Time] 13.9 s [facility] aP[facility] Coag (Bld) [Time] 26.9 s Normal 24.0-34.3 [facility] Comment on above: Performed By: #### P TPTT ####[facility] (DEFAULT)[address] [place] [address] INR Coag (PPP) [Relative time] 1.1 {INR} Normal 0.9-1.1 [facility] Comment on above: Performed By: #### P TPTT ####[facility] [facility] (DEFAULT)[address] [place] [address] PT Coag (PPP) [Time] 13.9 s Normal 11.9-14.2 [facility] Comment on above: Performed By: #### P TPTT ####[facility] (DEFAULT)[address] [place] [address] Partial Thromboplast Timeon 08-02-2024 aPTT Coag (Bld) [Time] 28.4 s Normal 24.1-36.2 [facility] Comment on above: Performed By: #### L 300.4310, L501.4021, L300.3900, L500.2500, L100.0100 #### [facility] [address] [place], [place], [id number] Platelet countOrdered By: Racheal Morgan on 08-02-2024 Platelets (Bld) [#/Vol] 214 10*3/uL 150-450 [facility] Potassium (Unsp spec) [Mass/ Vol]Ordered By: Pieter Morgan on 08-02-2024 Potassium [Moles/Vol] 4.2 mmol/L 3.3-5.1 [facility] Potassium measurement (mass/ volume)Ordered By: Pieter Morgan on 08-02-2024 Potassium (Unsp spec) [Mass/Vol] 4.2 mmol/L 3.3-5.1 [facility] Prothrombin Time w/INRon INR Coag (PPP) [Relative time] 1.1 {INR} Normal [facility] Comment on above: Performed By: #### L 300.4310, L501.4021, L300.3900, L500.2500, L100.0100 #### [facility] [address] [place], [address] PT Coag (PPP) [Time] 14.1 s Normal 11.7-14.9 [facility] Comment on above: Performed By: #### L 300.4310, L501.4021, L300.3900, L500.2500, L100.0100 #### [facility] [address] [place], [place], [id number] Prothrombin timeOrdered By: Pieter Morgan on 08-02-2024 PT Coag (PPP) [Time] 14.1 s 11.7-14.9 [facility] RBC Auto (Bld) [#/Vol]Ordere d By: Pieter Cathy on 08-02-2024 RBC (Bld) [#/Vol] 4.56 10*6/uL 4.2-5.[address] [facility] SCREEN: MRSA/MSSAon 08-03-19 25 Methicillin Resistant S. Aureus By Pcr Negative Normal Negative [facility] Comment on above: Order Comment: [...] by the Clinical Microbiology Laboratory at The [facility]. It has not been cleared or approved by the FDA.The laboratory is regulated under CLIA as qualified to perform high-complexity testing. This test is used for clinical purposes. It should not be regarded as investigational or for research. Performed By: #### T YPEC #### [facility] (DEFAULT) [address] [address] Staphylococcus Aureus By Pcr Negative Normal Negative [facility] Comment on above: Order Comment: [...] by the Clinical Microbiology Laboratory at The [facility]. It has not been cleared or approved by the FDA.The laboratory is regulated under CLIA as qualified to perform high-complexity testing. This test is used for clinical purposes. It should not be regarded as investigational or for research. Performed By: #### T YPEC #### [facility] (DEFAULT) [address] [address] STROKE Brain/Head without Co nton 08-02-2024 STROKE Brain/Head without Cont [facility] Imaging Services [address] [place] [id number] STROKE Brain/Head without Cont MR#: [id number] Acct: [id number] Name: LINDSAY ACUNA Rep #: [id number] : 1945 F 78 From: Kameron Cardoso MD PCP: Dr. Kameron Caruso MD Status: REG ER Study: STROKE Brain/Head without Cont Date of Exam: 0 08/02/24 Exam# [id number] Ordering Dr: Pieter Morgan MD EXAM: CT [...] on 08/02/2024 at 1250 hours. Reading Location: [facility] CC: Dr. Pieter Morgan MD; Dr. Kameron Caruso MD Shirt Creaser: Signed Normal [facility] STROKE CTA Head AND Neck W/C onon 08-02-2024 STROKE CTA Head AND Neck W/Con [facility] Imaging Services [address] [place] [address] STROKE CTA Head AND Neck W/Con MR#: [id number] Acct: [id number] Name: LINDSAY ACUNA Rep #: [id number] : 1945 F 78 From: August ibrahim MD PCP: Dr. Kameron Caruso MD Status: REG ER Study: STROKE CTA Head AND Neck W/Con Date of Exam: 0 08/02/24 Exam# [id number] Ordering Dr: Pieter Morgan MD PROCEDURE: STROKE [...] impression: No significant stenosis seen. Reading Location: [place] [address] CC: Dr. Pieter Morgan MD; Dr. Kameron Caruso MD Shirt Creaser: Signed Normal [facility] Serum creatinine measurement (mass/volume)Ordered By: Pieter Morgan on 08-02-2024 Creatinine [Mass/Vol] 1.74 mg/dL High 0.70-1.20 [facility] Serum glucose measurement (m ass/volume)Ordered By: [...] Urea nitrogen [Mass/Vol] 20 mg/dL High 4-19 [facility] Sodium levelOrdered By: Evert Morgan on 08-02-2024 Sodium [Moles/Vol] 132 mmol/L Low 133-145 [facility] TSH W/FT4 REFLEXon Interpretation and review of laboratory results Normal [facility] TSH Qn 1.662 m[IU]/L [facility] TSH 1.662 uIU/mL Normal 0.550-4.780 [facility] Comment on above: Performed By: #### X M #### [facility] (DEFAULT) [address] [place] [address] TYPE AND SCREENon 08-02-2024 ABO/RH(D) TYPE Negative [facility] Specimen Expiration 08/05/2024 23:59 [facility] ABO/RH(D) TYPE Negative Normal [facility] Comment on above: Performed By: #### X M #### [facility] (DEFAULT) [address] [place] [address] Specimen Expiration 08/05/2024 23:59 Normal [facility] Comment on above: Performed By: #### X M #### [facility] (DEFAULT) [address] [place] [address] URINALYSIS REFLEX TO CULTURE PERFORMABLEOrdered By: Namita De La Cruz on 08-02-2024 Appearance (U) Clear Clear [facility] Bacteria LM Ql (Urine sed) PRESENT Abnormal ABSENT [facility] Color (U) Yellow Yellow [facility] Epithelial cells.squamous LM Ql (Urine sed) 0-2/hpf 0-2/hpf, 3-5/hpf = 1+ [facility] Glucose Test strip (U) [Mass/Vol] 500 mg/dL Abnormal Negative [facility] Interpretation and review of laboratory results Abnormal [facility] Ketones (U) [Mass/Vol] Negative Negative OS U [facility] Leukocyte esterase Test strip Ql (U) Moderate Abnormal Negative [facility] Nitrite Ql (U) Negative Negative [facility] pH (U) 6.5 [pH] 5.0 - 7.0 [facility] Protein (U) [Mass/Vol] Negative Negative OS [facility] RBC (U) [#/Vol] Small Abnormal Negative [facility] RBC LM.HPF (Urine sed) [#/Area] 3-5 Abnormal [facility] Specific gravity (U) [Rel density] 1.022 1.001 - 1.035 [facility] Urobilinogen (U) [Mass/Vol] 0.2 E.U./dL 0.2 E.U/dL, 1.0 E.U/dL [facility] WBC LM.HPF (Urine sed) [#/Area] /[HPF] Abnormal [facility] URINALYSIS REFLEX TO CULTURE PERFORMABLEon 08-02-2024 Appearance (U) Clear Normal Clear [facility] Comment on above: Order Comment: For i ndwelling catheters, specimen collection is acceptable on catheter day 1 and 2 only. ? Performed By: #### U [id number] #### [facility] (DEFAULT) [address] [place] [address] Bacteria PRESENT Abnormal ABSENT [facility] Comment on above: Order Comment: For i ndwelling catheters, specimen collection is acceptable on catheter day 1 and 2 only. ? Performed By: #### U [id number] #### [facility] (DEFAULT) [address] [place] [address] Blood Urine Small Abnormal Negative [facility] Comment on above: Order Comment: For i ndwelling catheters, specimen collection is acceptable on catheter day 1 and 2 only. ? Performed By: #### U [id number] #### [facility] (DEFAULT) [address] [place] [address] Color (U) Yellow Normal Yellow [facility] Comment on above: Order Comment: For i ndwelling catheters, specimen collection is acceptable on catheter day 1 and 2 only. ? Performed By: #### U [id number] #### [facility] (DEFAULT) [address] [place] [address] Glucose Ql (U) 500 mg/dL Abnormal Negative [facility] Comment on above: Order Comment: For i ndwelling catheters, specimen collection is acceptable on catheter day 1 and 2 only. ? Performed By: #### U [id number] #### [facility] (DEFAULT) [address] [place] [address] Ketones Ql (U) Negative Normal Negative [facility] Comment on above: Order Comment: For i ndwelling catheters, specimen collection is acceptable on catheter day 1 and 2 only. ? Performed By: #### U [id number] #### [facility] (DEFAULT) [address] [place] [address] Leukocyte esterase Test strip Ql (U) Moderate Abnormal Negative [facility] Comment on above: Order Comment: For i ndwelling catheters, specimen collection is acceptable on catheter day 1 and 2 only. ? Performed By: #### U [id number] #### [facility] (DEFAULT) [address] [place] [address] Nitrites Urine Negative Normal Negative [facility] Comment on above: Order Comment: For i ndwelling catheters, specimen collection is acceptable on catheter day 1 and 2 only. ? Performed By: #### U [id number] #### [facility] (DEFAULT) [address] [place] [address] pH (U) 6.5 [pH] Normal 5.0-7.0 [facility] Comment on above: Order Comment: For i ndwelling catheters, specimen collection is acceptable on catheter day 1 and 2 only. ? Performed By: #### U [id number] #### [facility] (DEFAULT) [address] [place] [address] Protein Urine Negative Normal Negative [facility] Comment on above: Order Comment: For i ndwelling catheters, specimen collection is acceptable on catheter day 1 and 2 only. ? Performed By: #### U [id number] #### [facility] (DEFAULT) [address] [address] RBC Urine 3-5 Abnormal 0-2 [facility] Comment on above: Order Comment: For i ndwelling catheters, specimen collection is acceptable on catheter day 1 and 2 only. ? Performed By: #### U [id number] #### [facility] (DEFAULT) [address] [address] Specific [place] Urine 1.022 Normal 1.001-1.035 O [facility] Comment on above: Order Comment: For i ndwelling catheters, specimen collection is acceptable on catheter day 1 and 2 only. ? Performed By: #### U [id number] #### [facility] (DEFAULT) [address] [address] Squamous/Epithelial Cells, Urine 0-2/hpf Normal 0-2/hpf, 3-5/hpf = 1+ [facility] Comment on above: Order Comment: For i ndwelling catheters, specimen collection is acceptable on catheter day 1 and 2 only. ? Performed By: #### U [id number] #### [facility] (DEFAULT) [address] [address] Urobilinogen Urine 0.2 E.U./dL Normal 0.2 E.U/d L, 1.0 E.U/dL [facility] Comment on above: Order Comment: For i ndwelling catheters, specimen collection is acceptable on catheter day 1 and 2 only. ? Performed By: #### U [id number] #### [facility] (DEFAULT) [address] [address] WBC LM.HPF (Urine sed) [#/Area] /[HPF] Abnormal 0 - 5 [facility] Comment on above: Order Comment: For i ndwelling catheters, specimen collection is acceptable on catheter day 1 and 2 only. ? Performed By: #### U [id number] #### [facility] (DEFAULT) [address] [address] VON WILLEBRAND FACTOR AGon 0 08-02-2024 Von Willebrand Factor Antigen 230 % High 50-180 [facility] Comment on above: Performed By: #### [facility] #### [facility] (DEFAULT) [address] [place] [address] White blood cell (WBC) count Ordered By: Pieter Morgan on 08-02-2024 WBC (Bld) [#/Vol] 8.7 10*3/uL 4.4-11.0 [facility] XR Elbow - right 2 [facility] 0 08-02-2024 Radiology Study observation (narrative) [facility] XR Humerus - right [facility] 0 08-02-2024 Radiology Study observation (narrative) [facility] XR Wrist - right 3 [facility] 0 08-02-2024 Radiology Study observation (narrative) [facility] aPTT Coag (PPP) [Time]Ordere d By: Pieter Morgan on 08-02-2024 aPTT Coag (Bld) [Time] 28.4 s 24.1-36.2 [facility] CNPNon 07-03-2024 CNPN Telephone (FAMPWS) LINDSAY ACUNA ([id number]) 1945 F Date Time Provider Department 07/03/24 [...] calling: self Call patient at: on cell [phone] (home) [phone] (cell) Was an appointment scheduled: No Closing statement: Results or non-symptom based questions: Thank you for calling [facility], your call will be returned within [...] Encounter Status:Closed by MJ GLOVER on 07/03/24 [facility] [place] 07-02-2024 [facility] Telephone (NetBeezWS) LINDSAY ACUNA ([id number]) 1945 F Date Time Provider Department 07/02/24 KAMERON CARUSO [facility] During your visit today, we recorded the following information about you: Katia Álvarez RN 07/02/2024 11:57 AM Signed Patient calls and is requesting Cardiology referral to be faxed to [facility]. Faxed referral as [...] Encounter Status:Closed by KATIA ÁLVAREZ on 07/02/24 [facility] [place] 06-28-2024 CNPN Telephone (FAMPTW) LINDSAY ACUNA ([id number]) 1945 F Date Time Provider Department 06/28/24 [...] calling: self Call patient at: on cell [phone] (home) [phone] (cell) Was an appointment scheduled: No [facility] Adenike Walton MA 06/28/2024 3:08 [...] Encounter Status:Closed by BRET ARAMBULA on 07/01/24 [facility] CNOVon 06-26-2024 CNOV Office Visit (MILTONWS ) LINDSAY ACUNA ([id number]) 1945 F Date Time Provider Department 06/26/24 9:40 AM EMMA GLASGOW During your visit today, we recorded the following information about you: Pulse Respiration Blood pressure Weight 93/minute 16/minute 144/88 78.9 kg Emma Glasgow APRN.TOURIST INFORMATION OFFICER 06/26/2024 12:37 PM Signed This is a [...] times daily Dx: E11.29 Insulin: No lancets (SimpliVityTOUCH DELICA PLUS LANCET) 30 gauge Test blood [...] swelling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 016-3, 79855-1, 93900-6 ####[facility] LABIA [id number] [place] [address] [place] Cholesterol in VLDL [Mass/Vol] 30 mg/dL High <30 [facility] Comment on above: Order Comment: Speci men Type: BLOOD SPECIMENOrdering Facility: [facility] Address: [address] [place] [address] Performed By: #### 3 016-3, 29975-1, 45416-9 ####[facility] LABCLIA [id number] [place] [address] [place] Cholesterol non HDL [Mass/Vol] 115 mg/dL Normal <130 [facility] Comment on above: Order Comment: Speci men Type: BLOOD SPECIMENOrdering Facility: [facility] Address: [address] [place] [address] Result Comment: <130 mg/dL, Optimal 130-159 mg/dL, Near optimal/above optimal 160-189 mg/dL, Borderline high 190-219 mg/dL, High >219 mg/dL, Very high Secondary prevention optimal non HDL Cholesterol levels are recommended to be <100 mg/dL Performed By: #### 3 016-3, 75373-3, 68029-8 ####[facility] LABCLIA [id number] [place] [address] [place] Cholesterol.total/Alta sterol in HDL [Mass ratio] 3.80 {ratio} Normal <5.10 [facility] Comment on above: Order Comment: Speci men Type: BLOOD SPECIMENOrdering Facility: [facility] Address: [address] [place] [address] Performed By: #### 3 016-3, 84940-9, 97290-1 ####[facility] LABCLIA [id number] [place] [address] [place] FASTING TIME 12 hrs Normal [facility] Comment on above: Order Comment: Speci men Type: BLOOD SPECIMENOrdering Facility: [facility] Address: [address] [place] [address] Performed By: #### 3 016-3, 79223-5, 73701-9 ####[facility] LABCLIA [id number] [place] [address] [place] Triglyceride [Mass/Vol] 148 mg/dL Normal <150 [facility] Comment on above: Order Comment: Speci men Type: BLOOD SPECIMENOrdering Facility: [facility] Address: [address] [place] [address] Result Comment: <150 mg/dL, Normal 150-199 mg/dL, Borderline high 200-499 mg/dL, High >499 mg/dL, Very high Performed By: #### 3 016-3, 76358-6, 61782-9 ####[facility] LABCLIA [id number] [place] [address] [place] TSH SerPl-aCncon 11-27-2023 TSH Qn 1.870 m[IU]/L Normal 0.270-4.200 [facility] Comment on above: Order Comment: Speci men Type: BLOOD SPECIMENOrdering Facility: [facility] Address: [address] [place] [address] Performed By: #### 3 016-3, 48422-8, 70352-7 ####[facility] LABCLIA [id number] [address] [place] CNOVon 10-10-2023 CNOV Office Visit ([facility] ) LINDSAY ACUNA ([id number]) 1945 F Date Time Provider Department 10/10/23 7:30 AM DAVID DUPREE [facility] During your visit today, we recorded the following information about you: Temperature Pulse Respiration Blood pressure 97.5 degrees 58/minute 18/minute 128/82 Weight 82.1 kg David Dupree APRN.TOURIST INFORMATION OFFICER 10/10/2023 8:11 AM Signed Subjective HPI Nontoxic-appearing [...] Rate and (more content not included)... Normal [facility] CNOVon 09-29-2023 CNOV Office Visit ([facility] ) LINDSAY ACUNA ([id number]) 1945 F Date Time Provider Department 09/29/23 2:15 PM RADHA LEVINE [facility] During your visit today, we recorded the following information about you: Temperature Pulse Respiration Blood pressure 97.8 degrees 54/minute 18/minute 148/91 Weight 84 kg Radha Levine, [facility] 09/29/2023 6:12 PM Signed This note was created using NoteWriter. Subjective Lindsay Acuna is a 77 year old female. 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 Denies fever or chills Denies malaise or fatigue Denies new lotions, soaps, or medicines States that she was working out in the garden the same day the rash erupted. The history is provided by the patient. No english language learner tutor was used. Rash This is a new [...] mouth daily before breakfast. blood sugar diagnostic (Aerovance ULTRA TEST) test strip Test Blood Sugar [...] 30 seconds then expectorate blood sugar diagnostic (SimpliVityTOUCH ULTRA TEST STRIP) test strip Use to [...] state. Hematologi (more content not included)... Normal [facility] Glucose,Bedsideon 04-16-2019 Glucose [Mass/Vol] 161 mg/dL High 70-100 [facility] Comment on above: Result Comment: Test performed by glucose meter. Results may be 10%-15% lower than serum/plasma values. (CLIA ID [id number]) Performed By: #### B GLU #### [address] [address] Surgical Pathologyon 019 Surgical Pathology [id number] [facility] PATHOLOGY AND LABORATORY MEDICINE [address] [place] [address] FINAL SURGICAL PATHOLOGY REPORT ___ NAME: LINDSAY ACUNA : 1945 73 Y F BILLING NO.: [id number] LOCATION: 1XEO PROCEDURE 01/09/2019 DATE: SURGEON: SANTIAGO [...] determined by the clinical laboratories of [facility]. They have not been cleared by [...] negativity on decalcified specimens. Professional Performing Location: [address] [address]. DEPARTMENT OF PATHOLOGY AND LABORATORY MEDICINE [place], [place] [address] Normal [facility] .Auto Diffon 08-22-2018 Ammonia mass conc (P) 1.10 10 3/mcL High 0.15-1.00 [facility] ([place]) Comment on above: Performed By: #### B DAYANARA VALVERDE #### [address] [address] Basophils #/vol (Bld) 0.00 10 3/mcL Normal 0.00-0.19 [facility] ([place]) Comment on above: Performed By: #### B MP, GFR #### [address] [address] Basophils/100 WBC (Bld) 0.3 % Normal 0.0-2.5 [facility] ([place]) Comment on above: Performed By: #### B MP, GFR #### [address] [address] Eosinophils #/vol (Bld) 0.00 10 3/mcL Normal 0.00-0.40 [facility] ([place]) Comment on above: Performed By: #### B MP, GFR #### [address] [address] Eosinophils/100 WBC (Bld) 0.2 % Normal 0.0-7.0 [facility] ([place]) Comment on above: Performed By: #### B MP, GFR #### [address] [address] Lymphocytes #/vol (Bld) 2.20 10 3/mcL Normal 0.77-3.85 [facility] ([place]) Comment on above: Performed By: #### B MP, GFR #### [address] [address] Lymphocytes/100 WBC (Bld) 20.5 % Normal 10.0-50.0 [facility] ([place]) Comment on above: Performed By: #### B MP, GFR #### [address] [address] Monocytes/100 WBC (Bld) 10.5 % Normal 1.7-13.0 [facility] ([place]) Comment on above: Performed By: #### B MP, GFR #### [address] [address] Neutrophils/100 WBC (Bld) 68.5 % Normal 37.0-80.0 [facility] ([place]) Comment on above: Performed By: #### B MP, GFR #### [address] [address] .GFRon 08-22-2018 GFR Non- 33 ml/min/1.73sqm Normal [facility] ([place]) Comment on above: Result Comment: GFR [...] Performed By: #### B MP, GFR #### [address] [address] #### DORY LOPEZ, ANEU #### [address] [address] GFR 40 ml/min/1.73sqm Normal [facility] ([place]) Comment on above: Result Comment: GFR [...] Performed By: #### B MP, GFR #### [address] [address] #### CBC, ADIFF, ANEU #### [address] [address] .NEUABSon 08-22-2018 Neutrophils #/vol (Bld) 7.40 10 3/mcL High 2.85-6.16 [facility] ([place]) Comment on above: Performed By: #### B MP, GFR #### [place] [address] BMPon 08-22-2018 Calcium mass conc 8.3 mg/dL Low 8.4-10.2 [facility] ([place]) Comment on above: Performed By: #### B MP, GFR #### [place] [address] #### CBC, ADIFF, ANEU #### [place] [address] Chloride molar conc 104 mmol/L Normal 98-107 [facility] ([place]) Comment on above: Performed By: #### B MP, GFR #### [place] [address] #### CBC, ADIFF, ANEU #### [address] [address] CO2 molar conc 25 mmol/L Normal 23-31 [facility] ([place]) Comment on above: Performed By: #### B MP, GFR #### [place] [address] #### CBC, ADIFF, ANEU #### [place] [address] Creatinine mass conc 1.53 mg/dL High 0.55-1.02 [facility] ([place]) Comment on above: Performed By: #### B MP, GFR #### [place] [address] #### CBC, ADIFF, ANEU #### [place] [address] Electrolyte Balance 10.0 mEq/L Normal [facility] ([place] Comment on above: Performed By: #### B MP, GFR #### [place] [address] #### CBC, ADIFF, ANEU #### [address] [address] Glucose mass conc 149 mg/dL High 83-110 [facility] ([place] Comment on above: Performed By: #### B MP, GFR #### [address] [address] #### CBC, ADIFF, ANEU #### [address] [address] Potassium molar conc 4.3 mmol/L Normal 3.5-5.1 [facility] ([place] Comment on above: Performed By: #### B MP, GFR #### [address] [address] #### CBC, ADIFF, ANEU #### [address] [address] Sodium molar conc 139 mmol/L Normal 136-145 [facility] ([place] Comment on above: Performed By: #### B MP, GFR #### [place] [address] #### CBC, ADIFF, ANEU #### [address] [address] Urea nitrogen mass conc 32 mg/dL High 7-18 [facility] ([place] Comment on above: Performed By: #### B MP, GFR #### [address] [address] #### CBC, ADIFF, ANEU #### [address] [address] Urea nitrogen/Creatinine mass ratio 21 ratio Normal 7-27 [facility] ([place] Comment on above: Performed By: #### B MP, GFR #### [address] [address] #### CBC, ADIFF, ANEU #### [address] [address] CBCon 08-22-2018 Erythrocyte distribution width Ratio (RBC) 12.6 % Normal 11.5-14.5 [facility] ([place] Comment on above: Performed By: #### B MP, GFR #### [place] [address] Hematocrit Volume Fraction (Bld) 27.5 % Low 37.0-47.0 [facility] ([place]) Comment on above: Performed By: #### B MP, GFR #### [address] [address] Hemoglobin mass conc (Bld) 9.2 G/dL Low 12.0-16.0 [facility] ([place] Comment on above: Performed By: #### B MP, GFR #### [place] [address] MCH Entitic mass (RBC) 30.1 pg Normal 27.0-31.2 [facility] ([place]) Comment on above: Performed By: #### B MP, GFR #### [place] [address] MCHC mass conc (RBC) 33.5 G/dL Normal 33.0-37.0 [facility] ([place] Comment on above: Performed By: #### B MP, GFR #### [place] [address] MCV Entitic volume (RBC) 89.8 fL Normal 80.0-94.0 [facility] ([place]) Comment on above: Performed By: #### B MP, GFR #### [address] [address] Platelet mean volume Entitic volume (Bld) 9.3 fL Normal 7.4-10.4 [facility] ([place]) Comment on above: Performed By: #### B MP, GFR #### [address] [address] Platelets #/vol (Bld) 224 10 3/mcL Normal 130-400 [facility] ([place]) Comment on above: Performed By: #### B MP, GFR #### [address] [address] RBC #/vol (Bld) 3.06 10 6/mcL Low 4.20-5.40 [facility] ([place]) Comment on above: Performed By: #### B MP, GFR #### [facility] [address] [place] [address] WBC #/vol (Bld) 10.80 10 3/mcL Normal 4.60-10.80 [facility] ([place]) Comment on above: Performed By: #### B MP, GFR #### [facility] [address] [place] [address] XR KNEE 1 OR 2 VIEWS RIGHTon [...] 9:55:37 AM Normal [facility] ([place]) CT KNEE W/O CONTRAST RIGHTon 08-09-2018 [...] 5:04:12 PM Normal [facility] ([place]) .Auto Diffon 08-06-2018 Ammonia mass conc (P) 0.80 10 3/mcL Normal 0.15-1.00 [facility] ([place]) Comment on above: Performed By: #### C DORY SMITH, ANEU #### [place] [address] #### A1C #### [address] [address] Basophils #/vol (Bld) 0.10 10 3/mcL Normal 0.00-0.19 [facility] ([place]) Comment on above: Performed By: #### C DORY SMITH, ANEU #### [place] [address] #### A1C #### [address] [address] Basophils/100 WBC (Bld) 0.6 % Normal 0.0-2.5 [facility] ([place] Comment on above: Performed By: #### C DORY SMITH, ANEU #### [place] [address] #### A1C #### [address] [address] Eosinophils #/vol (Bld) 0.20 10 3/mcL Normal 0.00-0.40 [facility] ([place]) Comment on above: Performed By: #### C DORY SMITH, ANEU #### [place] [address] #### A1C #### [address] [address] Eosinophils/100 WBC (Bld) 1.7 % Normal 0.0-7.0 [facility] ([place]) Comment on above: Performed By: #### C SARAH ADCAROL, ANEU #### [place] [address] #### A1C #### [address] [address] Lymphocytes #/vol (Bld) 1.90 10 3/mcL Normal 0.77-3.85 [facility] ([place]) Comment on above: Performed By: #### C BC ADIFF, ANEU #### [address] [address] #### A1C #### [facility] [address] [place] [address] Lymphocytes/100 WBC (Bld) 20.8 % Normal 10.0-50.0 [facility] ([place]) Comment on above: Performed By: #### C BC ADIFF, ANEU #### [address] [address] #### A1C #### [facility] [address] [place] [address] Monocytes/100 WBC (Bld) 9.3 % Normal 1.7-13.0 [facility] ([place] Comment on above: Performed By: #### C BC ADIFF, ANEU #### [address] [address] #### A1C #### [address] [address] Neutrophils/100 WBC (Bld) 67.6 % Normal 37.0-80.0 [facility] ([place]) Comment on above: Performed By: #### C DORY SMITH, ANEU #### [address] [address] #### A1C #### [address] [address] .GFRon 08-06-2018 GFR 51 ml/min/1.73sqm Normal [facility] ([place]) Comment on above: Result Comment: GFR [...] Performed By: #### B MP, GFR #### [address] [address] GFR Non- 42 ml/min/1.73sqm Normal [facility] ([place]) Comment on above: Result Comment: GFR [...] #### B MP, GFR #### [place] [address] .NEUABSon 08-06-2018 Neutrophils #/vol (Bld) 6.20 10 3/mcL High 2.85-6.16 [facility] ([place]) Comment on above: Performed By: #### DORY SOTO, ANEU #### [address] [address] #### A1C #### [place] [address] A1Con 08-06-2018 Hemoglobin A1c/Hemoglobin.total mass fraction (Bld) 7.9 % High 4.5-6.2 [facility] ([place]) Comment on above: Performed By: #### C DORY SMITH, ANEU #### [address] [address] #### A1C #### [address] [address] BMPon 08-06-2018 Calcium mass conc 9.2 mg/dL Normal 8.4-10.2 [facility] ([place]) Comment on above: Performed By: #### B MP, GFR #### [address] [address] Chloride molar conc 105 mmol/L Normal 98-107 [facility] ([place] Comment on above: Performed By: #### B MP, GFR #### [address] [address] CO2 molar conc 27 mmol/L Normal 23-31 [facility] ([place]) Comment on above: Performed By: #### B MP, GFR #### [address] [address] Creatinine mass conc 1.25 mg/dL High 0.55-1.02 [facility] ([place]) Comment on above: Performed By: #### B MP, GFR #### [address] [address] Electrolyte Balance 11.0 mEq/L Normal [facility] ([place] Comment on above: Performed By: #### B MP, GFR #### [place] [address] Glucose mass conc 70 mg/dL Low 83-110 [facility] ([place] Comment on above: Performed By: #### B MP, GFR #### [place] [id number] Potassium molar conc 5.0 mmol/L Normal 3.5-5.1 [facility] ([place] Comment on above: Performed By: #### B MP, GFR #### [place] [id number] Sodium molar conc 143 mmol/L Normal 136-145 [facility] ([place]) Comment on above: Performed By: #### B MP, GFR #### [address] [address] Urea nitrogen mass conc 26 mg/dL High 7-18 [facility] ([place]) Comment on above: Performed By: #### B MP, GFR #### [address] [address] Urea nitrogen/Creatinine mass ratio 21 ratio Normal 7-27 [facility] ([place]) Comment on above: Performed By: #### B MP, GFR #### [address] [address] CBCon 08-06-2018 Erythrocyte distribution width Ratio (RBC) 12.2 % Normal 11.5-14.5 [facility] ([place]) Comment on above: Performed By: #### C DORY SMITH, ANEU #### [address] [address] #### A1C #### [place] [address] Hematocrit Volume Fraction (Bld) 34.6 % Low 37.0-47.0 [facility] ([place]) Comment on above: Performed By: #### C DORY SMITH, ANEU #### [address] [address] #### A1C #### [place] [address] Hemoglobin mass conc (Bld) 11.7 G/dL Low 12.0-16.0 [facility] ([place]) Comment on above: Performed By: #### C DORY SMITH, ANEU #### [address] [address] #### A1C #### [place] [address] MCH Entitic mass (RBC) 30.6 pg Normal 27.0-31.2 [facility] ([place]) Comment on above: Performed By: #### C DORY SMITH, ANEU #### [place] [address] #### A1C #### [place] [address] MCHC mass conc (RBC) 33.7 G/dL Normal 33.0-37.0 [facility] ([place] Comment on above: Performed By: #### C DORY SMITH, ANEU #### [address] [address] #### A1C #### [place] [address] MCV Entitic volume (RBC) 90.9 fL Normal 80.0-94.0 [facility] ([place]) Comment on above: Performed By: #### C BC, ADIFF, ANEU #### [address] [address] #### A1C #### [address] [address] Platelet mean volume Entitic volume (Bld) 8.8 fL Normal 7.4-10.4 [facility] ([place]) Comment on above: Performed By: #### C BC, ADIFF, ANEU #### [address] [address] #### A1C #### [address] [address] Platelets #/vol (Bld) 355 10 3/mcL Normal 130-400 [facility] ([place]) Comment on above: Performed By: #### C BC, ADIFF, ANEU #### [address] [address] #### A1C #### [place] [address] RBC #/vol (Bld) 3.81 10 6/mcL Low 4.20-5.40 [facility] ([place]) Comment on above: Performed By: #### C BC, ADIFF, ANEU #### [address] [address] #### A1C #### [place] [address] WBC #/vol (Bld) 9.20 10 3/mcL Normal 4.60-10.80 [facility] ([place]) Comment on above: Performed By: #### C BC, ADIFF, ANEU #### [address] [address] #### A1C #### [place] [address] Vital Signs Date Time Vital Sign Value Performing Clinician Facility 10-02-2024 09:0400 Body height 167.[address] Kameron Caruso MD Work Phone: [facility] 10-02-2024 09:21-0400 Diastolic blood pressure 71 mm[Hg] Dr. Kameron Caruso MD Work Phone: [facility] 10-02-2024 09:21-0400 Heart rate 77 /min Dr. Kameron Caruso MD Work Phone: [facility] 10-02-2024 09:21-0400 Respiratory rate 16 /min Dr. Kameron Caruso MD Work Phone: [facility] 10-02-2024 09:21-0400 Systolic blood pressure 111 mm[Hg] Dr. Kameron Caruso MD Work Phone: [facility] 09-09-2024 09:02-0400 Heart rate 100 /min SILVINO SCHEATZLE DO [facility] 09-09-2024 07:58-0400 Blood Pressure Cuff Size SILVINO SCHEATZLE DO [facility] 09-09-2024 07:58-0400 Blood Pressure Location SILVINO SCHEATZLE DO [facility] 09-09-2024 07:58-0400 Blood Pressure Method SILVINO SCHEATZLE DO [facility] 09-09-2024 07:58-0400 Body temperature 96.8 [degF] SILVINO SCHEATZLE DO [facility] 09-09-2024 07:58-0400 Diastolic Blood Pressure Non-Invasive 78 mm[Hg] SILVINO SCHEATZLE DO [facility] 09-09-2024 07:58-0400 Heart rate 110 /min SILVINO SCHEATZLE DO [facility] 09-09-2024 07:58-0400 Reason For Taking VItal Signs SILVINO SCHEATZLE DO [facility] 09-09-2024 07:58-0400 Respiratory rate 16 /min SILVINO SCHEATZLE DO [facility] [place] 09-09-2024 07:58-0400 Systolic Blood Pressure Non-Invasive 122 mm[Hg] SILVINO CIDATZLE DO [facility] 09-09-2024 02:45-0400 Body temperature 97.7 [degF] SILVINO CIDATZLE DO [facility] 09-09-2024 02:45-0400 Diastolic Blood Pressure Non-Invasive 60 mm[Hg] SILVINO CIDATZLE DO [facility] [place] 09-09-2024 02:45-0400 Heart rate 92 /min SILVINO CIDATZLE DO [facility] [place] 09-09-2024 02:45-0400 Respiratory rate 16 /min SILVINO CIDATZLE DO [facility] [place] 09-09-2024 02:45-0400 Systolic Blood Pressure Non-Invasive 108 mm[Hg] SILVINO CIDATZLE DO [facility] [place] 09-08-2024 22:28-0400 Blood Pressure Cuff Size SILVINO CIDATZLE DO [facility] 09-08-2024 22:28-0400 Blood Pressure Location SILVINO CIDATZLE DO [facility] [place] 09-08-2024 22:28-0400 Blood Pressure Method SILVINO CIDATZLE DO [facility] [place] 09-08-2024 22:28-0400 Body temperature 97.88 [degF] SILVINO CIDATZLE DO [facility] [place] 09-08-2024 22:28-0400 Diastolic Blood Pressure Non-Invasive 54 mm[Hg] SILVINO PALAKATZLE DO [facility] [place] 09-08-2024 22:28-0400 Heart rate 92 /min SILVINO CIDATZLE DO [facility] [place] 09-08-2024 22:28-0400 Reason For Taking VItal Signs SILVINO CIDATZLE DO [facility] [place] 09-08-2024 22:28-0400 Respiratory rate 16 /min SILVINO CIDATZLE DO [facility] 09-08-2024 22:28-0400 Systolic Blood Pressure Non-Invasive 118 mm[Hg] SILVINO CIDATZLE DO [email or web address] 09-08-2024 18:21-0400 Heart rate 90 /min SILVINO CIDATZLE DO [facility] 09-08-2024 09:08-0400 Blood Pressure Cuff Size SILVINO CIDATZLE DO [facility] 09-08-2024 09:08-0400 Blood Pressure Location SILVINO CIDATZLE DO [email or web address] 09-08-2024 09:08-0400 Blood Pressure Method SILVINO CIDATZLE DO [facility] 09-08-2024 09:08-0400 Heart rate 114 /min SILVINO CIDATZLE DO [facility] 09-08-2024 09:08-0400 Reason For Taking VItal Signs SILVINO PALAKATZLE DO [email or web address] 09-04-2024 10:54-0400 Body temperature 96.62 [degF] SILVINO CIDATZLE DO [facility] 09-03-2024 00:26-0400 Body temperature 97.34 [degF] SILVINO CIDATZLE DO [facility] 08-30-2024 22:54-0400 Body temperature 98.06 [degF] SILVINO CIDATZLE DO [facility] 08-26-2024 10:36-0400 Body weight 76 kg SILVINO RADERLE DO [facility] 08-19-2024 06:00-0400 Body weight 75.3 kg SILVINO CIDATZSHITAL DO [facility] 08-15-2024 14:27-0400 Body height 170.2 cm SILVINO PEARL DO [facility] 08-15-2024 14:27-0400 Body weight 75.4 kg SILVINO PEARL DO [facility] 08-15-2024 14:27-0400 Body weight 26.03 kg/m2 SILVINO PEARL DO [facility] 08-15-2024 09:02-0400 Diastolic blood pressure 69 mm[Hg] Prema Ramos MD Work Phone: [facility] 08-15-2024 09:02-0400 Systolic blood pressure 128 mm[Hg] Prema Ramos MD Work Phone: [facility] 08-15-2024 07:28-0400 Heart rate 86 /min Prema Ramos MD Work Phone: [facility] 08-15-2024 07:18-0400 Body temperature 97.3 [degF] Prema Ramos MD Work Phone: [facility] 08-15-2024 07:18-0400 Respiratory rate 23 /min Prema Ramos MD Work Phone: [facility] 08-15-2024 07:18-0400 SaO2% (BldA) [Mass fraction] 95 % Prema Ramos MD Work Phone: [facility] 08-05-2024 08:00-0400 Body height 170.2 cm Prema Ramos MD Work Phone: 6(068)084-806631 [address] 08-05-2024 08:00-0400 Body mass index (BMI) [Ratio] 26.94 kg/m2 Prema Ramos MD Work Phone: 1(495)801-084331 [address] 08-05-2024 08:00-0400 Body weight 78.02 kg Prema Ramos MD Work Phone: 6(369)112-077516 [place] [address] 08-02-2024 13:52-0400 Body temperature 98 [degF] Dr. Kameron Caruso MD Work Phone: 3(803)762-314474 [place] [address] 08-02-2024 13:52-0400 Diastolic blood pressure 91 mm[Hg] Dr. Kameron Caruso MD Work Phone: 2(969)576-239674 [place] [address] 08-02-2024 13:52-0400 Heart rate 109 /min Dr. Kameron Caruso MD Work Phone: 9(877)354-342774 [place] [address] 08-02-2024 13:52-0400 Respiratory rate 16 /min Dr. Kameron Caruso MD Work Phone: 1(008)950-026674 [place] [address] 08-02-2024 13:52-0400 SaO2% (BldA) [Mass fraction] 98 % Dr. Kameron Caruso MD Work Phone: 3(507)150-707374 [place] [address] 08-02-2024 13:52-0400 Systolic blood pressure 153 mm[Hg] Dr. Kameron Caruso MD Work Phone: 9(951)860-238074 [place] [address] 08-02-2024 12:46-0400 Body height 167.[address] Kameron Caruso MD Work Phone: 1(159)964-269374 [place] [address] 08-02-2024 12:46-0400 Body mass index (BMI) [Ratio] 26.6 kg/m2 Dr. Kameron Caruso MD Work Phone: 9(695)698-518674 [place] [address] 08-02-2024 12:46-0400 Body weight [address] Kameron Caruso MD Work Phone: 5(000)975-260374 [place] [address] 06-26-2024 09:39-0500 Body mass index (BMI) [Ratio] 27.25 kg/m2 Emma Canaleshofreddie RAC SPECIALIST.TOURIST INFORMATION OFFICER Work Phone: [facility] 06-26-2024 09:39-0500 Body weight 78.93 kg Emma Glasgow RAC SPECIALIST.TOURIST INFORMATION OFFICER Work Phone: [facility] 06-26-2024 09:39-0500 Diastolic blood pressure 88 mm[Hg] Emma Canaleshof RAC SPECIALIST.TOURIST INFORMATION OFFICER Work Phone: [facility] 06-26-2024 09:39-0500 Heart rate 93 /min Emma Canaleshof RAC SPECIALIST.TOURIST INFORMATION OFFICER Work Phone: [facility] 06-26-2024 09:39-0500 Respiratory rate 16 /min Emma Gonzalesf RAC SPECIALIST.TOURIST INFORMATION OFFICER Work Phone: [facility] 06-26-2024 09:39-0500 SaO2% (BldA) [Mass fraction] 98 % Emma Glasgow RAC SPECIALIST.TOURIST INFORMATION OFFICER Work Phone: [facility] 06-26-2024 09:39-0500 Systolic blood pressure 144 mm[Hg] Emma Canaleshof RAC SPECIALIST.TOURIST INFORMATION OFFICER Work Phone: [facility] 05-31-2024 08:56-0500 Diastolic blood pressure 84 mm[Hg] Kameron Caruso MD Work Phone: [facility] 05-31-2024 08:56-0500 Systolic blood pressure 136 mm[Hg] Kameron Caruso MD Work Phone: [facility] 05-31-2024 08:47-0500 Body mass index (BMI) [Ratio] 27.28 kg/m2 Kameron Caruso MD Work Phone: [facility] 05-31-2024 08:47-0500 Body weight 79 kg Kameron Caruso MD Work Phone: [facility] 05-31-2024 08:47-0500 Heart rate 100 /min Kameron Caruso MD Work Phone: [facility] 05-31-2024 08:47-0500 Respiratory rate 18 /min Kameron Caruso MD Work Phone: [facility] 11-28-2023 09:42-0400 Diastolic blood pressure 78 mm[Hg] Kameron Caruso MD Work Phone: [facility] 11-28-2023 09:42-0400 Systolic blood pressure 142 mm[Hg] Kameron Caruso MD Work Phone: [facility] 11-28-2023 09:41-0400 Body mass index (BMI) [Ratio] 27.82 kg/m2 Kameron Caruso MD Work Phone: [facility] 11-28-2023 09:41-0400 Body weight 80.56 kg Kameron Caruso MD Work Phone: [facility] 11-28-2023 09:41-0400 Heart rate 68 /min Kameron Caruso MD Work Phone: [facility] 11-28-2023 09:41-0400 Respiratory rate 18 /min Kameron Crauso MD Work Phone: [facility] 10-10-2023 07:31-0400 Body mass index (BMI) [Ratio] 28.35 kg/m2 David Dupree APRN.TOURIST INFORMATION OFFICER Work Phone: [facility] 10-10-2023 07:31-0400 Body temperature 97.5 [degF] David Dupree RAC SPECIALIST.TOURIST INFORMATION OFFICER Work Phone: [facility] 10-10-2023 07:31-0400 Body weight 82.1 kg David Dupree RAC SPECIALIST.TOURIST INFORMATION OFFICER Work Phone: [facility] 10-10-2023 07:31-0400 Diastolic blood pressure 82 mm[Hg] David Dupree RAC SPECIALIST.TOURIST INFORMATION OFFICER Work Phone: [facility] 10-10-2023 07:31-0400 Heart rate 58 /min David Dupree RAC SPECIALIST.TOURIST INFORMATION OFFICER Work Phone: [facility] 05-28-2024 07:31-0400 Respiratory rate 18 /min David Pakbury RAC SPECIALIST.TOURIST INFORMATION OFFICER Work Phone: [facility] 10-10-2023 07:31-0400 SaO2% (BldA) [Mass fraction] 100 % David Pakbury RAC SPECIALIST.TOURIST INFORMATION OFFICER Work Phone: [facility] 10-10-2023 07:31-0400 Systolic blood pressure 128 mm[Hg] David Pakbury RAC SPECIALIST.TOURIST INFORMATION OFFICER Work Phone: [facility] 09-29-2023 14:14-0400 Body mass index (BMI) [Ratio] 29 kg/m2 Radha Levine RAC SPECIALIST.TOURIST INFORMATION OFFICER Work Phone: [facility] 09-29-2023 14:14-0400 Body temperature 97.81 [degF] Radha Levine RAC SPECIALIST.TOURIST INFORMATION OFFICER Work Phone: [facility] 09-29-2023 14:14-0400 Body weight 84 kg Radha Levine RAC SPECIALIST.TOURIST INFORMATION OFFICER Work Phone: [facility] 09-29-2023 14:14-0400 Diastolic blood pressure 91 mm[Hg] Radha Levine RAC SPECIALIST.TOURIST INFORMATION OFFICER Work Phone: [facility] 09-29-2023 14:14-0400 Heart rate 54 /min Radha Levine RAC SPECIALIST.TOURIST INFORMATION OFFICER Work Phone: [facility] 09-29-2023 14:14-0400 Respiratory rate 18 /min Radha Levine RAC SPECIALIST.TOURIST INFORMATION OFFICER Work Phone: [facility] 09-29-2023 14:14-0400 SaO2% (BldA) [Mass fraction] 99 % Radha Levine RAC SPECIALIST.TOURIST INFORMATION OFFICER Work Phone: [facility] 09-29-2023 14:14-0400 Systolic blood pressure 148 mm[Hg] Radha Levine RAC SPECIALIST.TOURIST INFORMATION OFFICER Work Phone: [facility] 05-27-2022 09:42-0500 Body weight 83.83 kg Kameron Caruso MD Work Phone: [facility] 05-27-2022 09:42-0500 Diastolic blood pressure 84 mm[Hg] Kameron Caruso MD Work Phone: [facility] 05-27-2022 09:42-0500 Heart rate 68 /min Kameron Caruso MD Work Phone: [facility] 05-27-2022 09:42-0500 Respiratory rate 16 /min Kameron Caruso MD Work Phone: [facility] 05-27-2022 09:42-0500 Systolic blood pressure 136 mm[Hg] Kameron Caruso MD Work Phone: [facility] 03-02-2022 10:52-0400 Diastolic blood pressure 76 mm[Hg] Emma Tannhof RAC SPECIALIST.TOURIST INFORMATION OFFICER Work Phone: [facility] 03-02-2022 10:52-0400 Heart rate 92 /min Emma Tannhof RAC SPECIALIST.TOURIST INFORMATION OFFICER Work Phone: [facility] 03-02-2022 10:52-0400 Respiratory rate 18 /min Emma Tannhof RAC SPECIALIST.TOURIST INFORMATION OFFICER Work Phone: [facility] 03-02-2022 10:52-0400 Systolic blood pressure 140 mm[Hg] Emma Tannhof RAC SPECIALIST.TOURIST INFORMATION OFFICER Work Phone: [facility] 11-23-2021 09:39-0400 Body weight 83.1 kg Kameron Caruso MD Work Phone: [facility] 11-23-2021 09:39-0400 Diastolic blood pressure 80 mm[Hg] Kameron Caruso MD Work Phone: [facility] 11-23-2021 09:39-0400 Heart rate 84 /min Kameron Caruso MD Work Phone: [facility] 11-23-2021 09:39-0400 Respiratory rate 16 /min Kameron Caruso MD Work Phone: [facility] 11-23-2021 09:39-0400 Systolic blood pressure 138 mm[Hg] Kameron Caruso MD Work Phone: [facility] 10-16-2019 10:09-0400 BP Diastolic 72 mm[Hg] Santiago Miller [facility] [place] , [place] 10-16-2019 10:09-0400 BP Systolic 144 mm[Hg] [facility] [place] 10-16-2019 10:09-0400 Pulse (Heart Rate) 62 /min Santiago Miller [facility] [place], [place] 10-16-2019 10:09-0400 Pulse Oximetry 98 % Santiago Miller [facility] [place] , [place] 10-16-2019 10:09-0400 Respiratory Rate 18 /min [facility] [place] 10-16-2019 09:15-0400 BMI (Body Mass Index) 29.44 kg/m2 Santiago Miller [facility], [place] 10-16-2019 09:15-0400 Body Temperature 97.81 [degF] [facility] [place] 10-16-2019 09:15-0400 Body weight 85.28 kg Santiago Miller [facility] , [place] 10-16-2019 09:15-0400 Height 170.2 cm Santiago Miller [facility] , [place] 01-09-2019 12:06-0400 BP Diastolic 73 mm[Hg] Santiago Miller [facility] [place] , [place] 01-09-2019 12:06-0400 BP Systolic 121 mm[Hg] Santiago Miller [facility] , [place] 01-09-2019 11:50-0400 Pulse (Heart Rate) 64 /min Santiago Miller [facility], [place] 01-09-2019 11:50-0400 Pulse Oximetry 100 % Santiago Miller [facility] , [place] 01-09-2019 11:50-0400 Respiratory Rate 18 /min [facility] 01-09-2019 10:28-0400 BMI (Body Mass Index) 28.82 kg/m2 Santiago Miller [facility], [place] 01-09-2019 10:28-0400 Body weight 83.46 kg Santiago Miller [facility] , [place] 01-09-2019 10:28-0400 Height 170.2 cm Santiago Miller [facility] , [place] 01-09-2019 10:27-0400 Body Temperature 97.5 [degF] [facility], [place] Encounters Encounter Date Encounter Type Care Provider Facility Start: 03-25-2025 ambulatory Efewongbe Oleghe OLS Fa cility:[facility] Start: 03-18-2025 ambulatory Efewongbe Oleghe OLS Fa cility:[facility] Start: 03-11-2025 ambulatory Efewongbe Oleghe OLS Fa cility:[facility] Start: 03-04-2025 ambulatory Efewongbe Oleghe OLS Fa cility:[facility] Start: 02-25-2025 ambulatory Efewongbe Oleghe OLS Fa cility:[facility] Start: 02-18-2025 ambulatory Efewongbe Oleghe OLS Fa cility:[facility] Start: 02-18-2025 Safia Martin - [place] Start: 02-11-2025 ambulatory Efewongbe Oleghe OLS Fa cility:[facility] Start: 02-11-2025 Safia Martin - [place] Start: 02-04-2025 ambulatory Efewongbe Oleghe OLS Fa cility:[facility] Start: 02-04-2025 Safia Martin - [place] Start: 01-28-2025 ambulatory Efewongbe Oleghe OLS Fa cility:[facility] Start: 01-28-2025 Safia Martin - [place] Start: 01-21-2025 ambulatory Efewongbe Oleghe OLS Fa cility:[facility] Start: 01-21-2025 Safia Martin - [place] Start: 01-14-2025 ambulatory Efewongbe Oleghe OLS Fa cility:[facility] Start: 01-14-2025 Safia Torres Start: 01-07-2025 End: 01-07-[address] Kameron Caruso MD Work Phone: -Veronica Torres Start: 01-07-2025 End: 01-07-2025 Safia Torres Start: 01-07-2025 End: 01-07-2025 ambulatory Kameron Caruso Facility:[facility] Start: 12-31-2024 End: 12-31-[address] Kameron Caruso MD Work Phone: [facility] Start: 12-31-2024 End: 12-31-2024 Dr. Safia Ruelas MD -[facility] Work Phone: Start: 12-24-2024 ambulatory Kameron Caruso Facilit y:[facility] Start: 12-24-2024 Safia SOMMER L - [place] Start: 12-17-2024 ambulatory Efewongbe Oleghe OLS Fa cility:[facility] Start: 12-17-2024 Safia Martin - [place] Start: 12-10-2024 ambulatory Efewongbe Oleghe OLS Fa cility:[facility] Start: 12-10-2024 Safia SOMMER L - [place] Start: 12-03-2024 ambulatory Efewongbe Oleghe OLS Fa cility:[facility] Start: 12-03-2024 Safia SOMMER L - [place] Start: 11-28-2024 End: 11-28-[address] Kameron Caruso MD Work Phone: [facility] Start: 11-28-2024 End: 11-28-2024 Bret WILKESRON -[facility] Work Phone: Start: 11-26-2024 ambulatory Efewongbe Oleghe OLS Fa cility:[facility] Start: 11-26-2024 Registered Referred Safia Torres Start: 11-26-2024 Safia Martin - [place] Start: 11-25-2024 End: 11-25-[address] Kameron Caruso MD Work Phone: Joseph Torres Start: 11-25-2024 Registered Referred Safia Torres Start: 11-25-2024 End: 11-25-2024 Safia Torres Start: 11-25-2024 End: 11-25-2024 ambulatory Efewongbe Olebonie OLS Facility:[facility] Start: 11-20-2024 End: 11-20-[address] Kameron Caruso MD Work Phone: [facility] Start: 11-20-2024 End: 11-20-2024 Bret Snyder MaurisioC -[facility] Work Phone: Start: 11-19-2024 ambulatory Efewongbe Olebonie OLS Fa cility:[facility] Start: 11-19-2024 Registered Referred Safia Torres Start: 11-19-2024 Safia Torres Start: 11-12-2024 End: 11-12-[address] Kameron Caruso MD Work Phone: -GILMA Torres Start: 11-12-2024 Registered Referred Safia Torres Start: 11-12-2024 End: 11-12-2024 Safia Torres Start: 11-12-2024 End: 11-12-2024 ambulatory Efewongbe Olebonie OLS Facility:[facility] Start: 11-05-2024 ambulatory Efewongbe Enricoe OLS Fa cility:[facility] Start: 11-05-2024 Registered Referred Safia Torres Start: 11-05-2024 Safia Torres Start: 10-30-2024 End: 10-30-[address] Kameron Caruso MD Work Phone: [facility] Start: 10-30-2024 End: 10-30-2024 Patient encounter procedure Bret Snyder BANK CREDIT CARD COLLECTION CLERK- -[facility] Work Phone: Start: 10-30-2024 End: 10-30-2024 Bret Snyder BANK CREDIT CARD COLLECTION CLERK-[facility] Work Phone: Start: 10-29-2024 End: 10-29-[address] Safia Ruelas MD -[facility] Work Phone: Start: 10-29-2024 End: 10-29-[address] Kameron Caruso MD Work Phone: [facility] Start: 10-29-2024 Registered Referred Safia Torres Start: 10-29-2024 End: 10-29-2024 Dr. Safia Ruelas MD -[facility] Work Phone: Start: 10-29-2024 End: 10-29-2024 ambulatory Safia VARGAS Facility:[facility] Start: 10-23-2024 ambulatory Safia Ruelas OLS Fa cility:[facility] Start: 10-23-2024 Registered Referred Safia Torres Start: 10-23-2024 Safia Torres Start: 10-22-2024 End: 10-22-2024 Patient encounter procedure Bret Snyder [facility] Work Phone: Start: 10-22-2024 End: 10-22-[address] Kameron Caruso MD Work Phone: [facility] Start: 10-22-2024 Registered Referred Safia Torres Start: 10-22-2024 End: 10-22-2024 Bret Snyder NP-[facility] Work Phone: Start: 10-15-2024 ambulatory Safia Ruelas OLS Fa cility:[facility] Start: 10-15-2024 Registered Referred Safia Torres Start: 10-15-2024 Safia Torres Start: 10-09-2024 End: 10-09-[address] Kameron Caruso MD Work Phone: [facility] Start: 10-09-2024 End: 10-09-2024 Patient encounter procedure Bret Snyder BANK CREDIT CARD COLLECTION CLERK- -[facility] Work Phone: Start: 10-09-2024 End: 10-09-2024 Bret Snyder [facility] Work Phone: Start: 10-08-2024 ambulatory Efsherry Ruelas OLS Fa cility:[facility] Start: 10-08-2024 Registered Referred Safia Torres Start: 10-08-2024 Safia Torres Start: 10-02-2024 End: 10-02-[address] Mj Benavieds MD -[facility] Work Phone: Start: 10-02-2024 End: 10-02-2024 Dr. Mj Benavides MD -[facility] Work Phone: Start: 10-02-2024 End: 10-02-[address] Kameron Caruso MD Work Phone: [facility] Work Phone: Start: 10-01-2024 ambulatory Efewjosé antonio Ruelas OLS Fa cility:[facility] Start: 10-01-2024 Registered Referred Safia Torres Start: 10-01-2024 Safia Torres Start: 09-29-2024 ambulatory Efewongbe Enricoe OLS Fa cility:[facility] Start: 09-29-2024 Registered Referred Safia Torres Start: 09-29-2024 Safia Torres Start: 09-24-2024 ambulatory Safia Ruelas OLS Fa cility:[facility] Start: 09-24-2024 Registered Referred Safia Torres Start: 09-24-2024 Safia Torres Start: 09-17-2024 ambulatory Safia Ruelas OLS Fa cility:[facility] Start: 09-17-2024 Registered Referred Safia Torres Start: 09-17-2024 Safia Torres Start: 09-11-2024 End: 09-11-2024 ambulatory Bret Snyder BANK CREDIT CARD COLLECTION CLERK Facility:[facility] Start: 09-11-2024 End: 09-11-2024 Patient encounter procedure Bret Snyder BANK CREDIT CARD COLLECTION CLERK-C -[facility] Work Phone: Start: 09-11-2024 End: 09-11-2024 Bret Snyder BANK CREDIT CARD COLLECTION CLERK-C -[facility] Work Phone: Start: 09-10-2024 End: 09-10-[address] Safia Ruelas MD -[facility] Work Phone: Start: 09-10-2024 End: 09-10-2024 ambulatory Kameron Caruso Facility:[facility] Start: 09-10-2024 Registered Referred Safia Torres Start: 09-10-2024 End: 09-10-2024 Dr. Safia Ruelas MD -[facility] Work Phone: Start: 08-30-2024 End: 08-30-2024 Telephone encounter Kameron Caruso MD Work Phone: [facility] Comment on above: Tyler Chucho requesti ng verbal agree to follow Start: 08-15-2024 End: 09-09-2024 Evaluation and management of inpatient SILVINO CIDBEULAH DO [facility] Start: 08-09-2024 Evaluation and manag ement of inpatient KAMERON CARUSO Facility:[facility] Start: 08-06-2024 Evaluation and manag ement of inpatient [facility] Start: 08-02-2024 End: 08-02-2024 ambulatory [facility] Facility:[facility] Start: 08-02-2024 End: 08-15-2024 Evaluation and [...] encounter Kameron Caruso MD Work Phone: [facility] Comment on above: medication not on cu rrent med list Start: 06-26-2024 End: 06-26-2024 Office outpatient visit 25 minutes Emma Glasgow APRN.CNP Work Phone: [facility] Comment on above: Atrial fibrillation, unspecified type (HCC) (Primary Dx); Hypothyroidism, unspecified type; Need for malaria prophylaxis Start: 06-26-2024 End: 06-26-2024 ambulatory [facility] Facility:[facility] Start: 06-25-2024 ambulatory KAMERON CARUSO Facil ity:[facility] Start: 06-24-2024 End: 06-24-2024 Telephone encounter Kameron Caruso MD Work Phone: [facility] Comment on above: Patient Update Start: 06-11-2024 End: 06-11-2024 Telephone encounter Kameron Caruso MD Work Phone: [facility] Comment on above: Results Start: 06-11-2024 End: 06-11-2024 ambulatory [facility] Facility:[facility] Start: 06-10-2024 End: 06-11-2024 Telephone encounter Kameron Caruso MD Work Phone: [facility] Comment on above: Medication Problem Start: 05-31-2024 End: 05-31-2024 ambulatory [facility] Facility:[facility] Start: 05-31-2024 End: 05-31-2024 Patient encounter procedure Kameron Caruso MD Work Phone: [facility] Comment on above: Essential hypertensi [...] unspecified type (HCC) Start: 05-23-2024 End: 05-23-2024 [facility] Facility:[facility] Start: 11-28-2023 End: 11-28-2023 [facility] Facility:[facility] Start: 11-28-2023 End: 11-28-2023 Patient encounter procedure Kameron Caruso MD Work Phone: [facility] Comment on above: 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, unspecified CKD stage, unspecified whether longterm insulin use (HCC) (Primary Dx); Essential hypertension, benign; Chronic kidney disease, stage 3a (HCC); Hyperlipidemia, unspecified hyperlipidemia type; Hypothyroidism, unspecified type; Edema of left lower leg; Memory loss; Type 2 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, without long-term current use of insulin (HCC) Start: 11-27-2023 End: 11-27-2023 [facility] Facility:[facility] Start: 10-10-2023 End: 10-10-2023 ambulatory KAMERON CARUSO Facility:[facility] Start: 10-10-2023 End: 10-10-2023 Office outpatient visit 25 minutes David Joon RAC SPECIALIST.TOURIST INFORMATION OFFICER Work Phone: [facility] Comment on above: Rash (Primary Dx) Start: 09-29-2023 End: 09-29-2023 ambulatory KAMERON CARUSO Facility:[facility] Start: 09-29-2023 End: 09-29-2023 Patient encounter procedure Radha Levine RAC SPECIALIST.TOURIST INFORMATION OFFICER Work Phone: [facility] Comment on above: Allergic contact lexi matitis due to plant (Primary Dx) Start: 09-19-2023 Refill Kameron nixon MD Work Phone: [facility] Comment on above: Refill Request Start: 04-08-2023 Telephone encounter Kameron bucio MD Work Phone: [address] [place] [address] Comment on above: Refill Request Start: 11-25-2022 Telephone encounter Kameron bucio MD Work Phone: [facility] Comment on above: Patient Question Start: 05-27-2022 End: 05-27-2022 Patient encounter procedure Kameron Caruso MD Work Phone: [facility] Comment on above: Essential hypertensi on, benign (Primary Dx); Hypothyroidism, unspecified type; Type 2 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, without long-term current use of insulin (HCC); Hyperlipidemia, unspecified hyperlipidemia type; Chronic kidney disease, stage 3a (HCC); Edema of left lower leg; Wellness examination Start: 05-27-2022 End: 05-27-2022 Patient encounter status Kameron Caruso MD Work Phone: [facility] Start: 04-11-2022 Refill Kameron nixon MD Work Phone: [facility] Comment on above: Refill Request Start: 03-02-2022 ambulatory Kameron nixon MD Work Phone: [facility] Comment on above: Back Pain Start: 03-02-2022 End: 03-02-2022 Patient encounter procedure Emma Glasgow RAC SPECIALIST.TOURIST INFORMATION OFFICER Work Phone: [facility] Comment on above: Acute midline low ba ck pain without sciatica (Primary Dx) Start: 01-11-2022 Refill Mj ORTIZ RN.TOURIST INFORMATION OFFICER Work Phone: [facility] Comment on above: Refill Request Start: 01-11-2022 Refill Kameron nixon MD Work Phone: [facility] Comment on above: Refill Request Start: 12-16-2021 Telephone encounter Kameron bucio MD Work Phone: [facility] Comment on above: Diabetic Testing Sup plies Start: 11-23-2021 End: 11-23-2021 Refill Kameron Caruso MD Work Phone: [facility] Comment on above: 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, unspecified CKD stage, unspecified whether longterm insulin use (HCC) (Primary Dx); Essential hypertension, benign; Hyperlipidemia, unspecified hyperlipidemia type; Stage 3b chronic kidney disease (HCC); Hypothyroidism, unspecified type; Memory loss Start: 10-14-2021 Refill Kameron nixon MD Work Phone: [facility] Comment on above: Refill Request Start: 09-27-2021 Telephone encounter Kameron bucio MD Work Phone: [facility] Comment on above: information requeste d/rxs needed Start: 09-13-2021 Telephone encounter Kameron bucio MD Work Phone: [facility] Comment on above: Patient Question; [...] rscp w/mnl difrntl wbc count Dr. Kameron Carsuo MD Work Phone: Start: 11-26-2024 Mean corpuscular hem oglobin concentration determination Dr. Kameron Caruso MD Work Phone: Start: 11-26-[address] Tatiaan Caruso MD Work Phone: Start: 11-26-2024 Nucleated [...] 08-15-2024 Assay of magnesium Abram rin Nadine 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 Work Phone: Start: 08-15-2024 Glucose measurement, blood Christos Gibson MD Work Phone: Start: 08-14-2024 Glucose measurement, blood Christos Gibson MD Work Phone: Start: 08-14-2024 Glucose measurement, blood Christos Gibson MD Work Phone: Start: 08-14-2024 Glucose measurement, blood Christos Gibson MD Work Phone: Start: 08-14-2024 Assay of magnesium Abdoule rin M Nadine 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 Work Phone: Start: 08-13-2024 Glucose measurement, blood Christos Gibson MD Work Phone: Start: 08-13-2024 Glucose measurement, blood Christos Gibson MD Work Phone: Start: 08-13-2024 Glucose measurement, blood Christos Gibson MD Work Phone: Start: 08-13-2024 Glucose measurement, blood Felicity Castellano MD Work Phone: Start: 08-13-2024 Assay of magnesium Nase rin M Nadine 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 Work Phone: Start: 08-13-2024 Glucose measurement, blood Felicity Castellano MD Work Phone: Start: 08-12-2024 Glucose measurement, blood Felicity Castellano MD Work Phone: Start: 08-12-2024 Glucose measurement, blood Felicity Castellano MD Work Phone: Start: 08-12-2024 Glucose measurement, blood Felicity Castellano MD Work Phone: Start: 08-12-2024 Assay of magnesium Nase rin M Nadine 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 Work Phone: Start: 08-12-2024 Glucose measurement, blood Felicity Castellano MD Work Phone: Start: 08-11-2024 Glucose measurement, blood Felicity Castellano MD Work Phone: Start: 08-11-2024 Glucose measurement, blood Felicity Castellano MD Work Phone: Start: 08-11-2024 Glucose measurement, blood Felicity Castellano MD Work Phone: Start: 08-11-2024 Assay of magnesium Nase rin M Nadine 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 Work Phone: Start: 08-10-2024 Glucose measurement, blood Felicity Castellano MD Work Phone: Start: 08-10-2024 Glucose measurement, blood Felicity Castellano MD Work Phone: Start: 08-10-2024 End: 08-10-2024 Culture bacterial blood aerobic w/id isolates Radha Gr 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 Work Phone: Start: 08-10-2024 Glucose measurement, blood Felicity Castellano MD Work Phone: Start: 08-10-2024 End: 08-10-2024 Glucose measurement, blood Felicity Castellano MD Work Phone: Start: 08-10-2024 Glucose measurement, blood Felicity Castellano MD Work Phone: Start: 08-10-2024 Assay of magnesium Abram Schulteameh 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 Work Phone: Start: 08-10-2024 Glucose measurement, blood Felicity Castellano MD Work Phone: Start: 08-09-2024 Glucose measurement, blood Felicity Castlelano MD Work Phone: Start: 08-09-2024 Glucose measurement, blood Felicity Castellano MD Work Phone: Start: 08-09-2024 INTERVENTIONAL UPPER ENDOSCOPY Jonnie Mccabe MD Work Phone: Start: 08-09-2024 Level iv surg pathol ogy gross&microscopic exam Judson Keith DO Work Phone: Start: 08-09-2024 Glucose measurement, blood Felicity Castellano MD Work Phone: Start: 08-09-2024 Assay of magnesium Abram Mccoy 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 Work Phone: Start: 08-09-2024 Glucose measurement, blood Felicity Castellano MD Work Phone: Start: 08-08-2024 Glucose measurement, blood Felicity Castellano MD Work Phone: Start: 08-08-2024 Culture bct isol&prs mptv id isolate ea urine Bella Cardenas 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 Work Phone: Start: 08-08-2024 EXTRA MICRO Bella matthews 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 Work Phone: Start: 08-08-2024 URINALYSIS REFLEX TO CULTURE Bella Cardenas 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 Work Phone: Start: 08-08-2024 Ct head/brain w/o co ntrast material Bella Cardenas 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 Work Phone: Start: 08-08-2024 Glucose measurement, blood Felicity Castellano MD Work Phone: Start: 08-08-2024 End: 08-08-2024 Glucose measurement, blood Felicity Castellano MD Work Phone: Start: 08-08-2024 Assay of magnesium Abram Mccoy 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 Work Phone: Start: 08-07-2024 Glucose measurement, blood Felicity Castellano MD Work Phone: Start: 08-07-2024 Glucose measurement, blood Felicity Castellano MD Work Phone: Start: 08-07-2024 Glucose measurement, blood Felicity Castellano MD Work Phone: Start: 08-07-2024 Glucose measurement, blood Felicity Castellano MD Work Phone: Start: 08-06-2024 Glucose measurement, blood Felicity Castellano MD Work Phone: Start: 08-06-2024 Assay of magnesium Abram Mccoy 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 Work Phone: Start: 08-06-2024 Glucose measurement, blood Felicity Castellano MD Work Phone: Start: 08-06-2024 Glucose measurement, blood Felicity Castellano MD Work Phone: Start: 08-06-2024 Radiologic exam swal low function contrast study Shanna Russ 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 Work Phone: Start: 08-06-2024 SPEECH MODIFIED KEAGAN UM SWALLOW Shanna Russ 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 Work Phone: Start: 08-06-2024 Glucose measurement, blood Felicity Castellano MD Work Phone: Start: 08-05-2024 Glucose measurement, blood Felicity Castellano MD Work Phone: Start: 08-05-2024 Assay of magnesium Nase rin Jaiden Nadine 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 Work Phone: Start: 08-05-2024 Glucose measurement, blood Felicity Castellano MD Work Phone: Start: 08-05-2024 Glucose measurement, blood Felicity Castellano MD Work Phone: Start: 08-05-2024 [facility]wom-mode compl spec&colr d Taran Traore 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 Work Phone: Start: 08-05-2024 Glucose measurement, blood Felicity Castellano MD Work Phone: Start: 08-05-2024 Assay of magnesium Nase rin Jaiden Nadine 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 Work Phone: Start: 08-05-2024 Glucose measurement, blood [...] Assay of magnesium Nase rin M Nadine 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 Work Phone: Start: 08-04-2024 Glucose measurement, blood Richard Mejia MD Work Phone: Start: 08-03-2024 Ct head/brain w/o co ntrast material Shaila Méndez PA-C Start: 08-03-2024 Sodium serum plasma or whole blood Shanna Denise MD Work Phone: Start: 08-03-2024 Glucose measurement, blood Richard Mejia MD Work Phone: Start: 08-03-2024 Radiologic exam abdo men 1 view Balbir Jaiden Nadine 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 Work Phone: Start: 08-03-2024 Glucose measurement, blood [...] brain stem w/o contrast material Taran Traore 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 Work Phone: Start: 08-03-2024 ABORH TYPE RECONFIRMATION Cindy CORDOVA Work Phone: Start: 08-03-2024 Assay of magnesium Abram scott Jaiden Cardenash 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 Work Phone: Start: 08-02-2024 Glucose measurement, blood [...] By: #### X M #### [facility] ([facility]) [address] [place] [address] Start: 08-02-2024 EXTRA MICRO Taran Traore 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 Work Phone: Start: 08-02-2024 Hemoglobin glycosylated a1c Balbir Mccoy 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 Work Phone: Start: 08-02-2024 Hepatic function panel Balbir Mccoy 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 Work Phone: Start: 08-02-2024 Iadna s aureus ampli fied probe tq Balbir Cardenash 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 Work Phone: Start: 08-02-2024 URINALYSIS REFLEX TO CULTURE Taran Traore 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 Work Phone: Start: 08-02-2024 Urnls dip stick/tabl et reagent auto microscopy Taran Traore 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 Work Phone: Start: 08-02-2024 SARS-CoV-2, Influenz a [...] Author Start: 08-15-2025 Complete blood count Hemoglobin/Hematocrit [facility] Start: 08-15-2025 Creatinine measurement Serum Creatinine [facility] Start: 08-02-2025 Thyroid stimulating hormone measurement [facility] Start: 06-26-2025 Annual PCP Team Chronic Disease Visit Annual PCP Team Chronic Disease Visit [facility] Start: 05-31-2025 Annual PCP Team Chronic Disease Visit Annual PCP Team Chronic Disease Visit [facility] Start: 05-31-2025 Covid-19 Vaccine ( season) Covid-19 Vaccine ( season) [facility] Comment on above: Postponed from 01/14/2024 (Declined at t his time) Start: 05-31-2025 Pneumococcal Vaccine: 50+ (2 of 2 - PPSV23) Pneumococcal Vaccine: 50+ (2 of 2 - PPSV23) [facility] Comment on above: Postponed from 12/19/2019 (Declined at t his time) Start: 05-23-2025 Creatinine measurement Serum Creatinine [facility] Start: 05-23-2025 Hepatitis B screening Urine Albumin:Creatinine Ratio [facility] Start: 05-23-2025 Hepatitis B surface antibody level LDL Cholesterol [facility] Start: 03-04-2025 -[facility] [place] Start: 02-25-2025 -[facility] [place] Start: 02-02-2025 [facility] Start: 01-13-2025 Influenza vaccination [facility] Start: 01-03-2025 Glaucoma screening Dilated Retinal Exam [facility] Start: 12-24-2024 End: 12-24-2024 Patient encounter procedure 12/24/2024 9:20 AM EDT Office Visit Family [facility] [address] [place] [address] Kameron Caruso MD [address] [place], [place] [phone] 6 month follow up Family [facility] Comment on above: 6 month follow up Start: 11-28-2024 End: 02-27-2025 Comprehensive metabolic 2000 panel - Serum or Plasma COMPREHENSIVE METABOLIC PANEL Lab Routine Essential hypertension, benign Chronic kidney disease, stage 3a (HCC) Hyperlipidemia, unspecified hyperlipidemia type Expected: 11/28/2024 (Approximate), Expires: 02/27/2025 [facility] Work Phone: Comment on above: Expected: 11/28/2024 (Approximate), Expi res: 02/27/2025 Start: 11-28-2024 End: 02-27-2025 Hemoglobin A1c in Blood HEMOGLOBIN A1C Lab Routine Expected: 11/28/2024 (Approximate), Expires: 02/27/2025 [facility] Comment on above: Expected: 11/28/2024 (Approximate), Expi res: 02/27/2025 Start: 11-28-2024 End: 02-27-2025 Lipid 1996 panel - Serum or Plasma LIPID PANEL BASIC Lab Routine Essential hypertension, benign Hyperlipidemia, unspecified hyperlipidemia type Expected: 11/28/2024 (Approximate), Expires: 02/27/2025 [facility] Comment on above: Expected: 11/28/2024 (Approximate), Expi res: 02/27/2025 Start: 11-28-2024 End: 02-27-2025 Thyrotropin [Units/volume] in Serum or Plasma THYROID STIMULATING HORMONE Lab Routine Hypothyroidism, unspecified type Expected: 11/28/2024 (Approximate), Expires: 02/27/2025 [facility] Comment on above: Expected: 11/28/2024 (Approximate), Expi res: 02/27/2025 Start: 11-27-2024 Annual PCP Team Chronic Disease Visit Annual PCP Team Chronic Disease Visit [facility] Start: 11-27-2024 Anxiety Screening Anxiety Screening [facility] Start: 11-27-2024 Depression Screening Depression Screening [facility] Start: 11-27-2024 RSV Vaccine (1 - 1-dose 60+ series) RSV Vaccine (1 - 1-dose 60+ series) [facility] Comment on above: Postponed from 2004 (Declined at t his time) Start: 11-27-2024 RSV Vaccine (1 - 1-dose 75+ series) RSV Vaccine (1 - 1-dose 75+ series) [facility] Comment on above: Postponed from 10/26/2019 (Declined at t his time) Start: 11-26-2024 Creatinine measurement Serum Creatinine [facility] Start: 11-26-2024 Hepatitis B surface antibody level LDL Cholesterol [facility] Start: 11-20-2024 Hemoglobin A1c measurement HbA1C [facility] Start: 11-11-2024 Influenza vaccination Influenza Vaccine (#1) [facility] Comment on above: Postponed from 01/14/2024 (Declined at t his time) Start: 10-08-2024 End: 10-08-2024 ambulatory [facility] Start: 10-02-2024 Evaluation of diagnostic study results 12 Lead EKG performed by [facility] Start: 08-02-2024 [facility] Start: 08-02-2024 SARS-CoV-2, Influenza & RSV (PCR) SARS-CoV-2, Influenza & RSV (PCR) [facility] Start: 08-02-2024 End: 08-02-2024 [facility] Start: 08-02-2024 Electrocardiographic procedure [facility] Start: 08-02-2024 Oxygen therapy [facility] Start: 07-24-2024 End: 10-23-2024 Thyrotropin [Units/volume] in Serum or Plasma THYROID STIMULATING HORMONE Lab Routine Hypothyroidism, unspecified type Expected: 07/24/2024, Expires: 10/23/2024 [facility] Work Phone: Comment on above: Expected: 07/24/2024, Expires: Start: 07-24-2024 End: 10-23-2024 Thyroxine (T4) free [Mass/volume] in Serum or Plasma T4 FREE/FREE THYROXINE Lab Routine Hypothyroidism, unspecified type Expected: 07/24/2024, Expires: 10/23/2024 [facility] Comment on above: Expected: 07/24/2024, Expires: Start: 06-25-2024 End: 06-25-2024 Patient encounter procedure 06/25/2024 9:40 AM EST Office Visit Family [facility] [address] [place], [place] [phone] Kameron Caruso MD [address] [place], [place] [phone] 1 mo f/u, new dx afib. [facility] Comment on above: 1 mo f/u, new dx afib. Start: 06-11-2024 End: 06-11-2024 Patient encounter procedure 06/11/2024 8:50 AM EST Office Visit Cardiology [address] [place], [place] [id number] Atrial fibrillation, unspecified type (HCC) [I48.91] Cardiology Comment on above: Atrial fibrillation, unspecified type (H CC) [I48.91] Start: 05-30-2024 Annual PCP Team Chronic Disease Visit Annual PCP Team Chronic Disease Visit [facility] Start: 05-30-2024 End: 08-29-2024 Comprehensive metabolic 2000 panel - Serum or Plasma COMPREHENSIVE METABOLIC PANEL Lab Routine Type 2 diabetes mellitus with diabetic chronic kidney disease, unspecified CKD stage, 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 insulin use (HCC) Essential hypertension, benign Chronic kidney disease, stage 3a (HCC) Hyperlipidemia, unspecified hyperlipidemia type Expected: 05/30/2024 (Approximate), Expires: 08/29/2024 [facility] Work Phone: Comment on above: Expected: 05/30/2024 (Approximate), Expi res: 08/29/2024 Start: 05-30-2024 Covid-19 Vaccine ( season) Covid-19 Vaccine ( season) [facility] Comment on above: Postponed from 01/13/2023 (Declined at t his time) Start: 05-30-2024 End: 08-29-2024 Hemoglobin A1c in Blood HEMOGLOBIN A1C Lab Routine Type 2 diabetes mellitus with diabetic chronic kidney disease, unspecified CKD stage, unspecified whether longterm insulin use (HCC) Expected: 05/30/2024 (Approximate), Expires: 08/29/2024 [facility] Comment on above: Expected: 05/30/2024 (Approximate), Expi res: 08/29/2024 Start: 05-30-2024 Hepatitis C screening Hepatitis C Screening [facility] Comment on above: Postponed from 1962 (Declined at t his time) Start: 05-30-2024 End: 08-29-2024 Lipid 1996 panel - Serum or Plasma LIPID PANEL BASIC Lab Routine Type 2 diabetes mellitus with diabetic chronic kidney disease, unspecified CKD stage, 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 insulin use (HCC) Essential hypertension, benign Hyperlipidemia, unspecified hyperlipidemia type Expected: 05/30/2024 (Approximate), Expires: 08/29/2024 [facility] Comment on above: Expected: 05/30/2024 (Approximate), Expi res: 08/29/2024 Start: 05-30-2024 End: 08-29-2024 Microalbumin/Creatinine [Mass Ratio] in Urine ALBUMIN/CREATININE RATIO, URINE Lab Routine Type 2 diabetes mellitus with diabetic chronic kidney disease, unspecified CKD stage, unspecified whether longterm insulin use (HCC) Expected: 05/30/2024 (Approximate), Expires: 08/29/2024 [facility] Comment on above: Expected: 05/30/2024 (Approximate), Expi res: 08/29/2024 Start: 05-30-2024 Pneumococcal Vaccine: 65+ (2 of 2 - PPSV23 or PCV20) Pneumococcal Vaccine: 65+ (2 of 2 - PPSV23 or PCV20) [facility] Comment on above: Postponed from 12/19/2019 (Declined at t his time) Start: 05-30-2024 End: 08-29-2024 Thyrotropin [Units/volume] in Serum or Plasma THYROID STIMULATING HORMONE Lab Routine Hypothyroidism, unspecified type Expected: 05/30/2024 (Approximate), Expires: 08/29/2024 [facility] Comment on above: Expected: 05/30/2024 (Approximate), Expi res: 08/29/2024 Start: 05-30-2024 End: 05-30-2024 Patient encounter procedure 05/30/2024 9:40 AM EST Office Visit Family [facility] [address] [place] [phone] Kameron Caruso MD [address] [place] [id number] 6 mo f/u Family [facility] Comment on above: 6 mo f/u Start: 05-29-2024 Hemoglobin A1c measurement HbA1C [facility] Start: 05-16-2024 Creatinine measurement Serum Creatinine [facility] Start: 05-16-2024 Hepatitis B screening Urine Albumin:Creatinine Ratio [facility] Start: 05-16-2024 Hepatitis B surface antibody level LDL Cholesterol [facility] Start: 05-15-2024 Advance Directive Discussion Advance Directive Discussion [facility] Start: 01-14-2024 Influenza vaccination [facility] Start: 01-14-2024 [facility] Start: 01-04-2024 Glaucoma screening Dilated Retinal Exam [facility] Start: 01-04-2024 Hepatitis C antibody, confirmatory test Dilated Retinal Exam [facility] Start: 11-28-2023 End: 11-28-2023 Patient encounter procedure 11/28/2023 9:40 AM EDT Office Visit Family [facility] [address] [place] [phone] Kameron Caruso MD [address] [place] [address] 6 mo follow up Family [facility] Comment on above: 6 mo follow up Start: 11-26-2023 ANNUAL PCP TEAM CHRONIC DISEASE VISIT ANNUAL PCP TEAM CHRONIC DISEASE VISIT [facility] Start: 11-26-2023 BP CONTROLLED (<130/80) BP CONTROLLED (<130/80) [facility] Start: 11-23-2023 Complete blood count Hemoglobin/Hematocrit [facility] Start: 11-23-2023 HEMOGLOBIN/HEMATOCRIT HEMOGLOBIN/HEMATOCRIT [facility] Start: 11-23-2023 Hepatitis B surface antibody level LDL CHOLESTEROL [facility] Start: 11-23-2023 SERUM CREATININE SERUM CREATININE [facility] Start: 11-14-2023 Hemoglobin A1c [facility] Start: 05-27-2023 ANNUAL PCP TEAM CHRONIC DISEASE VISIT ANNUAL PCP TEAM CHRONIC DISEASE VISIT [facility] Start: 05-27-2023 COVID-19 VACCINE (2 - Booster for Alyssa series) COVID-19 VACCINE (2 - Booster for Alyssa series) [facility] Comment on above: Postponed from 09/17/2020 (Declined at t his time) Start: 05-27-2023 HEPATITIS C SCREENING HEPATITIS C SCREENING [facility] Comment on above: Postponed from 1962 (Declined at t his time) Start: 05-25-2023 Hemoglobin A1c/Hemoglobin.total in Blood HBA1C [facility] Start: 05-19-2023 HEMOGLOBIN/HEMATOCRIT HEMOGLOBIN/HEMATOCRIT [facility] Start: 05-19-2023 Hepatitis B surface antibody level LDL CHOLESTEROL [facility] Start: 05-19-2023 SERUM CREATININE SERUM CREATININE [facility] Start: 05-15-2023 Advance Directive Discussion Advance Directive Discussion [facility] Start: 05-15-2023 Behavioral Health Screening Behavioral Health Screening [facility] Start: 03-02-2023 ANNUAL PCP TEAM CHRONIC DISEASE VISIT ANNUAL PCP TEAM CHRONIC DISEASE VISIT [facility] Start: 01-13-2023 Covid-19 Vaccine ( season) Covid-19 Vaccine ( season) [facility] Start: 01-13-2023 Influenza vaccination [facility] Start: 12-27-2022 Hepatitis C antibody, confirmatory test DILATED RETINAL EXAM [facility] Start: 11-24-2022 End: 01-24-2023 CBC panel - Blood by Automated count CBC Lab Routine Essential hypertension, benign Hypothyroidism, unspecified type Expected: 11/24/2022 (Approximate), Expires: 01/24/2023 [facility] Work Phone: Comment on above: Expected: 11/24/2022 (Approximate), Expi res: 01/24/2023 Start: 11-24-2022 End: 01-24-2023 Comprehensive metabolic 2000 panel - Serum or Plasma COMP METABOLIC PANEL Lab Routine Essential hypertension, benign Type 2 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, without long-term current use of insulin (HCC) Hyperlipidemia, unspecified hyperlipidemia type Expected: 11/24/2022 (Approximate), Expires: 01/24/2023 [facility] Work Phone: Comment on above: Expected: 11/24/2022 (Approximate), Expi res: 01/24/2023 Start: 11-24-2022 End: 01-24-2023 Hemoglobin A1c in Blood HGB A1C Lab Routine Type 2 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, without long-term current use of insulin (HCC) Expected: 11/24/2022 (Approximate), Expires: 01/24/2023 [facility] Work Phone: Comment on above: Expected: 11/24/2022 (Approximate), Expi res: 01/24/2023 Start: 11-24-2022 End: 01-24-2023 Lipid 1996 panel - Serum or Plasma LIPID PANEL BASIC Lab Routine Essential hypertension, benign Type 2 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, without long-term current use of insulin (HCC) Hyperlipidemia, unspecified hyperlipidemia type Expected: 11/24/2022 (Approximate), Expires: 01/24/2023 [facility] Work Phone: Comment on above: Expected: 11/24/2022 (Approximate), Expi res: 01/24/2023 Start: 11-24-2022 End: 01-24-2023 Thyrotropin [Units/volume] in Serum or Plasma TSH BLD Lab Routine Hypothyroidism, unspecified type Expected: 11/24/2022 (Approximate), Expires: 01/24/2023 [facility] Work Phone: Comment on above: Expected: 11/24/2022 (Approximate), Expi res: 01/24/2023 Start: 11-23-2022 3 comp foot exam completed DIABETIC FOOT EXAM [facility] Start: 11-23-2022 ANNUAL PCP TEAM CHRONIC DISEASE VISIT ANNUAL PCP TEAM CHRONIC DISEASE VISIT [facility] Start: 11-23-2022 Diabetic foot examination Diabetic Foot Exam [facility] Start: 11-20-2022 Hepatitis B screening URINE ALBUMIN:CREATININE RATIO [facility] Start: 11-20-2022 Hepatitis B surface antibody level LDL CHOLESTEROL [facility] Start: 11-20-2022 SERUM CREATININE SERUM CREATININE [facility] Start: 11-16-2022 Hemoglobin A1c/Hemoglobin.total in Blood HBA1C [facility] Start: 11-11-2022 Influenza vaccination INFLUENZA (#1) [facility] Comment on above: Postponed from 01/13/2022 (Declined at t his time) Start: 05-26-2022 End: 07-26-2022 CBC panel - Blood by Automated count CBC Lab Routine Essential hypertension, benign Stage 3b chronic kidney disease (HCC) Expected: 05/26/2022 (Approximate), Expires: 07/26/2022 [facility] Work Phone: Comment on above: Expected: [...] Expected: 05/26/2022 (Approximate), Expires: 07/26/2022 [facility] Work Phone: Comment on above: Expected: 05/26/2022 (Approximate), Expi res: 07/26/2022 Start: 05-26-2022 End: 07-26-2022 Hemoglobin A1c in Blood HGB A1C Lab Routine Type 2 diabetes mellitus with diabetic chronic kidney disease, unspecified CKD stage, 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 insulin use (HCC) Expected: 05/26/2022 (Approximate), Expires: 07/26/2022 [facility] Work Phone: Comment on above: Expected: 05/26/2022 (Approximate), Expi res: 07/26/2022 Start: 05-26-2022 End: 07-26-2022 Lipid 1996 panel - Serum or Plasma LIPID PANEL BASIC Lab Routine Essential hypertension, benign Hyperlipidemia, unspecified hyperlipidemia type Expected: 05/26/2022 (Approximate), Expires: 07/26/2022 [facility] Work Phone: Comment on above: Expected: 05/26/2022 (Approximate), Expi res: 07/26/2022 Start: 05-26-2022 End: 07-26-2022 Thyrotropin [Units/volume] in Serum or Plasma TSH BLD Lab Routine Hypothyroidism, unspecified type Expected: 05/26/2022 (Approximate), Expires: 07/26/2022 [facility] Work Phone: Comment on above: Expected: 05/26/2022 (Approximate), Expi res: 07/26/2022 Start: 05-23-2022 Hemoglobin A1c/Hemoglobin.total in Blood HBA1C [facility] Start: 05-18-2022 ANNUAL PCP TEAM CHRONIC DISEASE VISIT ANNUAL PCP TEAM CHRONIC DISEASE VISIT [facility] Start: 05-17-2022 Hepatitis B surface antibody level LDL CHOLESTEROL [facility] Start: 05-17-2022 SERUM CREATININE SERUM CREATININE [facility] Start: 05-15-2022 ADVANCE DIRECTIVE DISCUSSION ADVANCE DIRECTIVE DISCUSSION [facility] Start: 01-13-2022 Influenza vaccination [facility] Start: 01-11-2022 Hepatitis C antibody, confirmatory test DILATED RETINAL EXAM [facility] Start: 11-14-2021 Hemoglobin A1c/Hemoglobin.total in Blood HBA1C [facility] Start: 11-06-2021 Screening for malignant neoplasm of breast [facility] Start: 11-05-2021 3 comp foot exam completed DIABETIC FOOT EXAM [facility] Start: 11-05-2021 Adult depression screening assessment DEPRESSION SCREENING [facility] Start: 11-04-2021 Hepatitis B screening URINE ALBUMIN:CREATININE RATIO [facility] Start: 10-15-2021 Hepa vaccine adult dose for intramuscular use HEPATITIS A VACCINE ADULT IM Immunization/Injection Routine Need for vaccination Expected: 10/15/2021 [facility] Work Phone: Comment on above: Expected: 10/15/2021 Start: 10-15-2021 Tdap vaccine 7 yrs/> im TDAP VACCINE AGE 7+ IM Immunization/Injection Routine Need for vaccination Expected: 10/15/2021 [facility] Work Phone: Comment on above: Expected: 10/15/2021 Start: 05-15-2021 ADVANCE DIRECTIVE DISCUSSION ADVANCE DIRECTIVE DISCUSSION [facility] Start: 05-15-2021 DEPRESSION ASSESSMENT DEPRESSION ASSESSMENT [facility] Start: 10-23-2020 PNEUMOCOCCAL: 65+ (2 - PPSV23 if available, else PCV20) PNEUMOCOCCAL: 65+ (2 - PPSV23 if available, else PCV20) [facility] Start: 10-23-2020 PNEUMOCOCCAL: 65+ (2 - PPSV23 or PCV20) PNEUMOCOCCAL: 65+ (2 - PPSV23 or PCV20) [facility] Start: 10-16-2020 HEMOGLOBIN/HEMATOCRIT HEMOGLOBIN/HEMATOCRIT [facility] Start: 09-17-2020 COVID-19 VACCINE (2 - Booster for Alyssa series) COVID-19 VACCINE (2 - Booster for Alyssa series) [facility] Start: 12-19-2019 Pneumococcal vaccination [facility] Start: 12-19-2019 Pneumococcal Vaccine: 65+ (2 - PPSV23 or PCV20) Pneumococcal Vaccine: 65+ (2 - PPSV23 or PCV20) [facility] Start: 12-19-2019 PNEUMOCOCCAL: 65+ (2 - PPSV23 or PCV20) PNEUMOCOCCAL: 65+ (2 - PPSV23 or PCV20) [facility] Start: 11-08-2019 Screening for malignant neoplasm of colon [facility] Start: 10-26-2019 [facility] Start: 01-13-2019 Influenza vaccination Flu vaccine (#1) [place], [place] Start: 12-23-2018 Annual Wellness Visit (AWV) Annual Wellness Visit (AWV) [place], [place] Start: 2009 DEXA (modify frequency per FRAX score) DEXA (modify frequency per FRAX score) [place] Start: 2009 Pneumococcal 65+ years Vaccine (1 of 1 - PPSV23) Pneumococcal 65+ years Vaccine (1 of 1 - PPSV23) [place] Start: 2009 Pneumococcal 65+ years Vaccine (1 of 2 - PCV13) Pneumococcal 65+ years Vaccine (1 of 2 - PCV13) [place] Start: 10-26-2007 Annual Wellness Visit (AWV) Annual Wellness Visit (AWV) [place] Start: 2004 Hepatitis B Vaccine (1 of 3 - Risk 3-dose series) Hepatitis B Vaccine (1 of 3 - Risk 3-dose series) [facility] Start: 2004 RSV Vaccine (1 - 1-dose 60+ series) RSV Vaccine (1 - 1-dose 60+ series) [facility] Start: 10-26-1999 Screening for osteoporosis DEXA (modify frequency per FRAX score) [place], [place] Start: 1994 Breast cancer screen Breast cancer screen [place], [place] Start: 1994 Colon cancer screen colonoscopy Colon cancer screen colonoscopy [place], [place] Start: 1994 Screening for malignant neoplasm of breast Breast cancer screen [place], [place] Start: 1994 Screening for malignant neoplasm of colon Colon cancer screen colonoscopy [place] Start: 1994 Shingles Vaccine (1 of 2) Shingles Vaccine (1 of 2) [place] Start: 1984 Lipid screen Lipid screen [place], [place] Start: 1965 Screening for malignant neoplasm of cervix [facility] Start: 10-26-1963 DTaP/Tdap/Td vaccine (1 - Tdap) DTaP/Tdap/Td vaccine (1 - Tdap) [place] Start: 10-26-1963 Third diphtheria, tetanus and acellular pertussis (DTaP) vaccination [facility] Start: 10-26-1963 Urine microalbumin profile [facility] Start: 1962 BP CONTROLLED (<130/80) BP CONTROLLED (<130/80) [facility] Start: 1962 HEPATITIS C SCREENING HEPATITIS C SCREENING [facility] Start: 1954 Lipid panel Lipid screen [place], [place] Start: 1944 Creatinine measurement Creatinine monitoring [place], [place] Start: 1944 Creatinine monitoring Creatinine monitoring [place], [place] Start: 1944 Hepatitis C screen Hepatitis C screen [place], [place] Start: 1944 Hepatitis C screening [facility] Start: 1944 Potassium monitoring Potassium monitoring [place], [place] Start: 1944 Screening for osteoporosis [facility] Start: 1944 Tetanus vaccination [facility] End: 01-09-2019 Blood glucose - POCT Blood glucose - POCT Point of Care Testing Routine One Time for 1 Occurrences starting 01/09/2019 until 01/09/2019 [place], [place] Comment on above: One Time for 1 Occurrences starting 12/14 until 01/09/2019 ECG COMPLETE [facility] Comment on above: Ordered: 05/31/2024 End: 05-31-2025 Echocardiography ECHO Cardiology Routine Atrial fibrillation, unspecified type (HCC) 1 Occurrences starting 05/31/2024 until 05/31/2025 [facility] Comment on above: 1 Occurrences starting 05/31/2024 until 05/31/2025 Patient referral [facility] Work Phone: End: 01-09-2019 Pulse Oximetry Spot Check Pulse Oximetry Spot Check Respiratory Care Routine One Time for 1 Occurrences starting 01/09/2019 until 01/09/2019 [place], [place] Comment on above: One Time for 1 Occurrences starting 12/14 until 01/09/2019 End: 08-02-2024 PV FLUOROSCOPY OR U [facility] End: 08-02-2024 Standard ECG [facility] [facility] Immunizations Immunization Date Immunization Notes Care Provider Fa sonya 07-23-2020 SARS-CoV-2 (COVID-19 ) Ad26 vaccine, recombinant SILVINO PEARL DO Tyler Garcia Comment on above: Result Comment: 2024: TPV75 02-27-2020 influenza, high dose seasonal, preservative-free Kameron Caruso MD Work Phone: [facility] 02-27-2020 influenza virus vaccine, unspecified formulation Kameron Caruso MD Work Phone: [facility] 10-24-2019 pneumococcal conjuga te vaccine, 13 valent Kameron Caruso MD Work Phone: [facility] 10-24-2019 zoster vaccine recombinant Kameron Caruso MD Work Phone: [facility] 07-25-2019 influenza virus vaccine, unspecified formulation SILVINO PEARL DO [facility] 07-25-2019 influenza, seasonal, injectable Kameron Caruso MD Work Phone: [facility] 07-25-2019 zoster vaccine recombinant Kameron Caruso MD Work Phone: [facility] 04-13-2015 influenza virus vaccine, unspecified formulation SILVINO PEARL DO [facility] 05-01-2014 influenza virus vaccine, unspecified formulation SILVINO PEARL DO [facility] 05-01-2014 influenza, high dose seasonal, preservative-free Kameron Caruso MD Work Phone: [facility] 02-22-2012 influenza virus vaccine, unspecified formulation Kameron Caruso MD Work Phone: [facility] Work Phone: 03-19-2007 influenza virus vaccine, unspecified formulation Kameron Caruso MD Work Phone: [facility] Work Phone: Payers Date Payer Category Payer Medicare [id number] 2024 Unknown [id number] 2024 Self-pay 2018 Medicare SUM[employer]ARE-MEDICA RE ADVANTAGE SUM[employer]ARE-MEDICARE ADVANTAGE xxxxxxxxxxx 2018-Present [phone] [address] [place] [address] xxxxxxxxxxx [id number] .[id number] 2018 Unknown [id number] 2013 Medicare [facility] [place] [id number] 2013-Present [phone] [address] [place] [address] O [id number] 1.2.840.340109.1.13.159.2 .7.3.486876.315 2013 Medicare [id number]. 1.13.159.2 .7.3.923759.315 2013 Medicare (Managed Care) 1.2. [id number] .7.9.021650.70579.315 2013 Medicare [id number] 1945 Unknown [id number] 2.16.840.1.141902.3.579.2 .627 1944 Unknown [id number] 2.16.840.1.231659.3.579.2 .732 1944 Unknown [id number] 2.16.840.1.729569.3.579.2 .594 1944 Unknown [id number] 2.16.840.1.120384.3.579.2 .594 1944 Unknown [id number] 2.16.840.1.423095.3.579.2 .627 Unknown [id number] 2.16.840.1.172361.3.579.2 .462 Unknown [id number] 2.16.840.1.989331.3.579.2 .462 Unknown [id number] 2.16.840.1.529948.3.579.2 .462 Unknown [id number] 2.16.840.1.241130.3.579.2 .462 Unknown [id number] 2.16.840.1.917327.3.579.2 .462 Unknown [id number] 2.16.840.1.857122.3.579.2 .462 Unknown [id number] 2.16840.1.244779.3.579.2 .462 Unknown [id number] 2.16840.1.099179.3.579.2 .462 Unknown [id number] 2.16.840.1.683257.3.579.2 .462 Unknown [id number] 2.840.1.312834.3.579.2 .462 Unknown [id number] 2.840.1.830091.3.579.2 .462 Unknown [id number] 2.840.1.082407.3.579.2 .462 Unknown [id number] 2.840.1.701353.3.579.2 .462 Unknown [id number] 2.840.1.485847.3.579.2 .462 Unknown [id number] 2.840.1.753158.3.579.2 .462 Unknown [id number] 2.840.1.565379.3.579.2 .462 Unknown [id number] 2.840.1.911003.3.579.2 .462 Unknown [id number] 2.840.1.247788.3.579.2 .462 Unknown [id number] 2.840.1.854917.3.579.2 .462 Unknown [id number] 2.840.1.166766.3.579.2 .462 Unknown [id number] 2.840.1.821758.3.579.2 .462 Unknown [id number] 2.840.1.503329.3.579.2 .462 Unknown 2018 2.840.1.578262.3.579.2 .462 Unknown [id number] 2.840.1.476468.3.579.2 .462 Unknown [id number] 2.840.1.954515.3.579.2 .462 Unknown [id number] 2..840.1.601091.3.579.2 .462 Unknown [id number] 2.16.840.1.915625.3.579.2 .462 Unknown [id number] 2.16.840.1.331704.3.579.2 .462 Unknown [id number] 2.840.1.128046.3.579.2 .462 Unknown [id number] 2.840.1.497537.3.579.2 .462 Unknown [id number] 2.840.1.325901.3.579.2 .462 Unknown [id number] 2.840.1.616310.3.579.2 .462 Unknown [id number] 2.840.1.059741.3.579.2 .462 Unknown [id number] 2.840.1.782132.3.579.2 .462 Unknown [id number] 2.840.1.747948.3.579.2 .462 Unknown [id number] 2.840.1.477093.3.579.2 .462 Unknown [id number] 2.840.1.044751.3.579.2 .462 Unknown [id number] 2.840.1.506593.3.579.2 .462 Unknown [id number] 2.840.1.037588.3.579.2 .462 Unknown [id number] 2.840.1.438103.3.579.2 .462 Unknown [id number] 2.840.1.297456.3.579.2 .462 Unknown [id number] 2.840.1.765584.3.579.2 .462 Unknown [id number] 2.840.1.059326.3.579.2 .462 Social History Date Type Detail Facility Start: 01-09-2019 End: 08-02-2024 Tobacco smoking status NHIS Never smoker [facility] Start: 01-09-2019 End: 11-25-2022 Alcohol intake Never [facility] Work Phone: Start: 12-24-2018 [facility] Start: 1945 Sex Assigned At Not on file [facility] [employer] [facility] Start: 10-16-2019 Alcohol intake Lifetime non-d hortencia (finding) [place], [place] Exposure to SARS-CoV -2 (event) [facility] [place] Start: 05-18-2021 End: 06-26-2024 Alcohol intake Current non-drinker of alcohol (finding) [facility] Start: 11-13-2021 End: 03-02-2022 Exposure to SARS-CoV-2 (event) Not sure [facility] Start: 02-02-2011 End: 03-02-2022 Tobacco use and exposure Smokeless tobacco non-user [facility] Start: 11-25-2022 End: 11-28-2023 History of Social function [facility] Work Phone: Adult Depression Screening Assessment 0 [facility] Work Phone: Start: 06-22-2005 End: 08-02-2024 Sex Female (finding) [facility] Start: 1945 Sex Assigned At Female [facility] Sexual Orientation [facility] Medical Equipment Procedure Code Equipment Code Equipment Original Text Equipment Identifier Dates [id number], [id number], [id number] Start: 11-30-2020 End: 04-08-2023 Comment on above: [...] Functional Status Room check performed Gillian anny [place] 09-09-2024 Functional Status [facility] 09-09-2024 Functional Status Skin Care Prev entative Intervention(s) heel(s)s elevated Tyler [place] 09-08-2024 Functional Status [facility] 09-08-2024 Functional Status [facility] 09-06-2024 Functional Status 11pm-7am [facility] 09-06-2024 Functional Status Antiembolism S tocking On/Re-applied bilateral knee high [facility] 09-05-2024 Functional Status Oral Care Maximum [facility] Functional Status [facility] 09-05-2024 Functional Status Done [facility] 09-04-2024 Functional Status [facility] 09-04-2024 Functional Status [facility] 09-03-2024 Functional Status NPO Status Maintained A maryamgonzalo [place] 09-03-2024 Functional Status None [facility] 09-03-2024 Functional Status [facility] 08-29-2024 Functional Status [facility] 08-29-2024 Functional Status [facility] 08-27-2024 Functional Status Orthotics, Dev ice Worn Per Schedule Yes [facility] 08-27-2024 Functional Status [facility] 08-26-2024 Functional Status [facility] 08-23-2024 Functional Status [facility] 08-23-2024 Functional Status Breakfast Percent 25 [facility]ian [facility] 08-20-2024 Functional Status [facility] 08-19-2024 Functional Status [facility] 08-16-2024 Functional Status Single level h ome, basement laundry [facility] 08-16-2024 Functional Status Outside Stairs Rail Rail on left going up [facility] [place] 08-15-2024 Functional Status Sensory Defici ts Speech deficit [facility] 10-14-2014 Are you deaf, or do you have serious difficulty hearing No [facility] 10-14-2014 Are you blind, or do you have serious difficulty seeing, even when wearing glasses No [facility] 10-14-2014 Do you have serious difficulty walking or climbing stairs No [facility] 10-14-2014 Do you have difficul ty dressing or bathing No [facility] 10-14-2014 Because of a physica l, mental, or emotional condition, do you have difficulty doing errands alone such as visiting a physician's office or shopping No [facility] Mental Status Date Assessment Result Facility 09-09-2024 Mental Status Does not interact Tyler stahl 09-08-2024 Mental Status Tyler Chandni jeknins 09-08-2024 Mental Status Tyler Chandni jenkins 08-02-2024 Cognitive function Awake;Alert;F ollows Commands [facility] Work Phone: 10-14-2014 Because of a physica l, mental, or emotional condition, do you have serious difficulty concentrating, remembering, or making decisions No [facility] Clinical Notes 11-03-2020 to 10-02-2024 Note Date & Type Note Facility 10-02-2024 Evaluation note Diagnosis Onset Date Resolution Acute ischemic right MCA stroke acute October 02, 2024 9:29am Essential hypertension acute 2024 9:29am Hyperlipidemia acute October 02, 2024 9:29am Paroxysmal atrial fibrillation with RVR acute October 02, 2024 9:29am [facility] Work Phone: 1(106) 546-881404-28-2025 Note Discharge Instructions Thank you for allowing [...] 3-7 days Where:[address] [place] [address]- Additional Information: Please schedule follow up PCP appointment for after discharge from SNF, Bring discharge instructions with you Follow Up with RIMMA POWERS MD When:10/08/2024 04:00 PM EDT Where:[facility] ([address], [employer]) Additional Information: Neurosurgeon The Following Activity and [...] standard right Seat cushion, 99 month(s), Tyler [id number], 09/02/24 8:22:00 EDT Transfer of Care Wound [...] depending on your insurance coverage. Check with yourSecret Lab company about what is covered. Keeping follow-up [...] 08/04/2017 Document Revised: 05/04/2018 Document Reviewed: 08/04/2017 P2P-Next Patient Education 2020 P[employer]Next [employer]. Additional Information VACCINATE! IT SAVES LIVES! Members of the community who have not yet received the COVID-19 vaccine and would like to receive it can visit one of [facility] vaccine clinics. There are many vaccine clinic locations within the [facility]. For locations and available times, please visit [email or web address] It is important to note that some COVID mobile vaccine clinics are held outdoors and may be canceled in rainy or stormy conditions. To learn more about pediatric vaccinations (ages 5-11), we invite you to visit the [facility] webpage. https://www.[email or web address].org/pages/0006-Bvhdn-Fwcsuatvgvu-Curodqetjg-Zzlxc-Krh stions.htmlTo learn more about the COVID-19 vaccine, we invite you to visit the CDC website for a list of frequently asked questions.https://www.cdc.gov/coronavirus/2019-ncov/vaccines/faq.html [facility] Patient Portal Access Instructions: Stay connected with your healthcare team and access your personal medical information anytime with the [facility] Patient Portal. Please follow the directions below to create your [facility] account: 1.Access the email account you provided upon registration to the hospital/physician office.2.Look for an invitation email from [facility].3.Open the email and access the invitation link: AcceptInvitation to [facility].4.Fill in the required richards to create your account. To access your account, visit [email or web address]. Click the blue button labeled "Access Patient [...] who you will allowto register on the [facility] Patient Portal for access to your information. You can also access the [facility] Patient Portal on the [facility] dahlia. Simply click on "Patient Portal" and then log into your account. If you would like to receive a full copy of your medical records, please contact the [facility] Medical Records Department by calling [phone], Monday through Monday between 8 a.m. and [...] Call your local pharmacy or go to http://bit.ly/0K5Qp2v to find one close to you.3.Make use of household items: Use cat litter or old coffee grounds to dispose medications if other options arenot available. Mix your drugs with these household products, seal them in an airtight container andthrow it into the garbage. Call [facility]: [phone] to be sure your drugs can be [...] aware that I should contact my doctor. Patient/Molder Sweep Signature: Date/Time: Relationship to Patient: Witness Name/Signature: Date/Time: Tyler [id number] Note Discharge Instructions Thank you for allowing [facility] to assist you with your healthcare needs. The following is importantdischarge information regarding your hospital visit. Your Care Team KAMERON CARUSO MD Your Diagnosis CVA (cerebral vascular accident) Diabetes mellitus Dysphagia Hyperlipidemia Hypertension Osteoarthritis What to do next Follow Up Appointments Follow Up with JONNEI BANSAL MD Where[facility] Additional Information: GI, No appointment needed until PEG is ready to be removed or concerns arise Follow Up with KAMERON CARUSO MD When:Within 3-7 days Where:[address] [place] [address]- Additional Information: Please schedule follow up PCP appointment for after discharge from SNF, Bring discharge instructions with you Follow Up with RIMMA POWERS MD When:10/08/2024 04:00 PM EDT Where:[facility] ([address], [employer]) Additional Information: Neurosurgeon The Following Activity and [...] standard right Seat cushion, 99 month(s), Tyler [id number], 09/02/24 8:22:00 EDT Transfer of Care Wound [...] depending on your insurance coverage. Check with yourUtility Funding about what is covered. Keeping follow-up visits [...] 08/04/2017 Document Revised: 05/04/2018 Document Reviewed: 08/04/2017 [employer] Patient Education 2020 P[employer]Next Inc. Additional Information VACCINATE! IT SAVES LIVES! Members of the community who have not yet received the COVID-19 vaccine and would like to receive it can visit one of [facility] vaccine clinics. There are many vaccine clinic locations within the [facility]. For locations and available times, please visit [email or web address] It is important to note that some COVID mobile vaccine clinics are held outdoors and may be canceled in rainy or stormy conditions. To learn more about pediatric vaccinations (ages 5-11), we invite you to visit the [facility] webpage. https://www.[facility].org/pages/7236-Tabrp-Maifjbecsea-Tcluiczkix-Pryde-Qpe stions.htmlTo learn more about the COVID-19 vaccine, we invite you to visit the CDC website for a list of frequently asked questions.https://www.cdc.gov/coronavirus/2019-ncov/vaccines/faq.html [facility] Patient Portal Access Instructions: Stay connected with your healthcare team and access your personal medical information anytime with the [facility] Patient Portal. Please follow the directions below to create your [facility] account: 1.Access the email account you provided upon registration to the hospital/physician office.2.Look for an invitation email from [facility].3.Open the email and access the invitation link: AcceptInvitation to [facility].4.Fill in the required richards to create your account. To access your account, visit [facility]/Cognitive MatchOneChart. Click the blue button labeled "Access Patient Portal" and then log in with the username and password that you created in the steps above. You will be able to view your test results, lab results, a summary of your visits, upcoming appointments and more. There is also a convenient messaging option where you can send secure messages to your p GHEN MATERIALSvider. In addition, you will have the ability to download any documents or summaries to your computer and/or send the information securely to a physician. Remember that your healthcare information is confidential, so carefully consider who you will allowto register on the [facility] Patient Portal for access to your information. You can also access the [facility] Patient Portal on the [facility] [employer] dahlia. Simply click on "Patient Portal" and then log into your account. If you would like to receive a full copy of your medical records, please contact the [facility] Medical Records Department by calling [phone], Monday through Monday between 8 a.m. and [...] Call your local pharmacy or go to http://bit.Hoffmeister Leuchten/1H6Ba8g to find one close to you.3.Make use of household items: Use cat litter or old coffee grounds to dispose medications if other options arenot available. Mix your drugs with these household products, seal them in an airtight container andthrow it into the garbage. Call [facility]: [phone] to be sure your drugs can be [...] aware that I should contact my doctor. Patient/Molder Sweep Signature: Date/Time: Relationship to Patient: Witness Name/Signature: Date/Time: Tyler [id number] Physical medicine and rehab Discharge summary Date [...] in discharge valuation. She was admitted to [facility] rehab unit from [facility] stay 08/02 - 08/15 who has a history of CAD, DM2, atrial fibrillation and hypertension whopresented to the ER after noting left-sided weakness and slurred speech. Originally presented to [facility] where CT head [...] Ordered -- 08/15/24 17:18:00 EDT, AMI HEATON APRN-TOURIST INFORMATION OFFICER, [facility] per policy Physical Exam Vitals [...] oral tablet)1 tab(s) PEG tube every day. [id number] Microgram PEG tube once a day. metoprolol [...] day. Follow Up Follow Up with JONNIE ABNSAL MD Where:[facility] Additional Information: GI, No appointment needed until PEG is ready to be removed or concerns arise Follow Up with KAMERON CARUSO MD When:Within 3-7 days Where:[address] [place] [address]- Additional Information: Please schedule follow up PCP appointment for after discharge from SNF, Bring discharge instructions with you Follow Up with RIMMA POWERS MD When:10/08/2024 04:00 PM EDT Where:[facility] ([address], [employer]) Additional Information: Neurosurgeon Follow Up Appointments No qualifying data available. Follow Up Labs/Studies Discharge Labs No Follow-up Labs Discharge Studies No Follow-up Studies Discharge Diet No qualifying data available. Discharge Activity No qualifying data available. Condition on Discharge Stable Discharge Disposition custodial facility Information Provided To Patient and family Time Spent Greater than 35 minutes Digitally Signed by SILVINO PEARL DO on 09/09/2024 01:46 PM [place] [address]-28-2025 Nurse Progress note Nursing GG Entered On: 09/09/2024 10:55 EDT Performed On: 09/09/2024 10:55 EDT by Abigail Rodas RN Nursing GG's OT GG Grid Eating : Not Completed Abigail Rodas RN - 09/09/2024 10:55 EDT Digitally Signed by Abigail Rodas RN on 09/09/2024 10:55 AM [place] [address]-27-2025 Nurse Progress note Nursing GG Entered On: 09/08/2024 17:39 EDT Performed On: 09/08/2024 17:39 EDT by Rob Alarcon RN Nursing GG's OT GG Grid Eating : Not Completed Oral Hygiene : Not Completed Toilet Hygiene : Substantial/Maximal Assistance Toilet Transfer : Substantial/Maximal Assistance Rob Alarcon RN - 09/08/2024 17:39 EDT Digitally Signed by Rob Alarcon RN on 09/08/2024 05:39 PM [address]27-2025 Nurse Progress note Pt had 250ml residual, 12:30pm bolus was held! Digitally Signed by Rob Alarcon RN on 09/08/2024 12:47 PM [place] [address]-25-2025 Physical medicine and rehab Progress note Rehab [...] and slurred speech. She originally presented to [facility] with CT of the head was obtained showed no acute hemorrhage or large territory stroke. CTA showed mid right M1 occlusion however patient was not a TNK candidate. She was then transferred to a [facility] for further management. CT of head showed [...] Rate64(SEP 05 16:46)64(SEP 05 16:46)85(SEP 05 09:40) ETM905(SEP 05 16:36)138(SEP 05 16:36)H 158(SEP 05 09:52) [...] PEARL DO on 09/06/2024 12:34 PM Tyler [id number] Hospital Discharge instructions Patient Education 09/05/2024 14:15:00 [...] depending on your insurance coverage. Check with yourSecret Lab company about what is covered. Keeping follow-up [...] 08/04/2017 Document Revised: 05/04/2018 Document Reviewed: 08/04/2017 P2P-Next Patient Education 2020 [employer]. Follow Up Care 08/15/2024 08:51:25 With:RIMMA POWERS MD Address: [facility] ([address], [employer]) When:10/08/2024 16:00:00 Comments:Neurosurgeon With:JONNIE BANSAL MD Address: [facility] When: Unknown Comments:GI, No appointment needed until PEG is ready to be removed or concerns arise With:KAMERON CARUSO MD Address: [address] [place] [address]- When:3-7 days Comments:Please schedule follow up PCP [...] less than 3 seconds. Ongoing hemiparesis VITALS OwehzuPshnWAKjricVJJoC4ZJK8XhpbAd(kg) 09/05 09:5236.3--482751QD 09/05 09:40----85----RA 09/04 23:3236.6--146239VI 09/04 21:2436.5--217922SX 09/04 16:01----71----RA 24 Hr Tmax: 36.6 at [...] tab(s), PEG, Daily, 08/15/24 17:09:00 EDT balsam Lagrange-castor oil topical (Venelex 788 mg-87 mg/g topical [...] None Problems (6) CVA (cerebral vascular accident) (496216572) Diabetes mellitus (404614356) Dysphagia (91035855) Hyperlipidemia (33554777) Hypertension (7769240287) Osteoarthritis (5131480317) ASSESSMENT/PLAN: Right basal ganglia hemorrhage, status post [...] CATHERINE DUEÑAS on 09/05/2024 04:55 PM Tyler [id number] Physical medicine and rehab Progress note Subjective [...] area Neuro: Left upper extremity hemiparesis VITALS MfbtwaYrfzUKFcoxsPFPoX1OQQ7LoelWc(kg) 09/04 23:3236.6--638050NY 09/04 21:2436.5--598067HN 09/04 16:01----72----RA 09/04 12:10--------97RA 09/04 10:5435.9--390183TV 24 Hr Tmax: 36.6 at 09/04 23:32 [...] tab(s), PEG, Daily, 08/15/24 17:09:00 EDT balsam Lagrange-castor oil topical (Venelex 788 mg-87 mg/g topical [...] < 110, 1st dose location: [facility], , 08/15/24 17:09:00 EDT Active PRN [...] 2 minutes, REPEAT x1., 1st dose location: [facility], 0, 08/15/24 1... glucose (Dextrose 50% [...] None Problems (6) CVA (cerebral vascular accident) (861926014) Diabetes mellitus (839374788) Dysphagia (72352799) Hyperlipidemia (15389553) Hypertension (3874689183) Osteoarthritis (7557048730) ASSESSMENT/PLAN: Acute right basal ganglia hemorrhage with [...] NANDO HUTTON DO on 09/05/2024 10:12 AM Tyl[facility] [id number] Physical medicine and rehab Progress note Rehab [...] and slurred speech. She originally presented to [facility] with CT of the head was obtained showed no acute hemorrhage or large territory stroke. CTA showed mid right M1 occlusion however patient was not a TNK candidate. She was then transferred to a [facility] for further management. CT of head showed [...] Rate64(SEP 03 15:52)64(SEP 03 15:52)90(SEP 03 08:28) VCK324(SEP 04 05:38)112(SEP 04 05:38)127(SEP 03 08:00) DBP70(SEP [...] PEARL DO on 09/04/2024 11:55 AM Tyler [id number] Note Subjective Patient states she is doing [...] area Neuro: Left upper extremity hemiparesis VITALS SbxduvMbpaPWHjuenZPXoB9REF2CdswXn(kg) 09/03 21:4136.4--139440XP 09/03 15:52----64---- 09/03 08:46 09/03 08:28----90---- 09/03 08:0036.4--918249TE 24 Hr Tmax: 36.4 at 09/03 21:41 [...] tab(s), PEG, Daily, 08/15/24 17:09:00 EDT balsam Lagrange-castor oil topical (Venelex 788 mg-87 mg/g topical [...] < 110, 1st dose location: [facility], 1, 08/15/24 17:09:00 EDT oxybutynin (oxybutynin [...] REPEAT x1., 1st dose location: [facility], 0, 08/15/24 1... glucose (Dextrose 50% [...] None Problems (6) CVA (cerebral vascular accident) (880330590) Diabetes mellitus (724879892) Dysphagia (59445755) Hyperlipidemia (81701461) Hypertension (8491871785) Osteoarthritis (4131747763) ASSESSMENT/PLAN: Acute right basal ganglia hemorrhage with [...] HUTTON DO on 09/05/2024 08:57 AM Tyler [id number] Note Subjective Patient states that she is [...] area Neuro: Left upper extremity hemiparesis VITALS DictfzTwnlEDWbrovNOMdW0FQG7RfhgEc(kg) 09/03 00:2636.3--405443LO 09/02 21:5136.2--762094SL 09/02 16:56----88--98RA 09/02 10:40 RA 09/02 09:0936.0--573341EC 24 Hr Tmax: 37.0 at 09/02 05:55 [...] SBP (mmHg) < 110, 1st dose location: [facility], 1, 08/15/24 17:09:00 EDT oxybutynin (oxybutynin [...] None Problems (6) CVA (cerebral vascular accident) ([id number]) Diabetes mellitus (341557626) Dysphagia (96915201) Hyperlipidemia (59772563) Hypertension (2524325755) Osteoarthritis (9076886795) ASSESSMENT/PLAN: Acute right basal ganglia hemorrhage with [...] NANDO HUTTON DO on 09/05/2024 08:57 AM [facility]* Exam Date Time Procedure Performing Provider Status 09/02/24 2:[address] Head or Brain w/o Contrast Brenda MCCLELLAN MD; Auth (Verified) [id number] ORIGINAL HISTORY: Lethargy COMPARISON: No TECHNIQUE: Routine [...] 09/02/2024 3:10:44 PM Ordering Provider: SILVINO Scott [id number] Telephone encounter Note* Telephone Encounter - Fouzia Miller LPN - 08/30/2024 10:09 AM EDT Marya Scott [facility] notified. [facility]04-18-2025 Miscellaneous Notes* Telephone Encounter - Fouzia Miller LPN - 08/30/2024 10:09 AM EDT Marya Scott [facility] notified. * Telephone Encounter - Mj Glover APRN.CNP - 08/30/2024 9:19 AM EDT Please let know that Dr. Caruso's team will follow orders. Okay to proceed. Mj Glover APRN.CNP * Telephone Encounter - Jaiden Paulino RN - 08/30/2024 9:07 AM EDT [facility] reports patient was in [facility] with dx: stroke, and transferred to [facility]. Pt will be discharged from [facility] on 09/07/24 to home with [facility] SN PT OT [facility] & [facility]. Asking if pcp agreeable to follow for HHC. Please phone Marya with verbal: [phone] [facility] Telephone encounter Note * Telephone Encounter - Mj Glover APRN.CNP - 08/30/2024 9:19 AM EDT Please let know that Dr. Caruso's team will follow HH orders. Okay to proceed. Mj Glover APRN.CNP [facility]04-18-2025 Telephone encounter Note* Telephone Encounter - Jaiden Paulino RN - 08/30/2024 9:07 AM EDT [facility] reports patient was in [facility] with dx: stroke, and transferred to [facility]. [facility] home with [facility] SN PT OT ST & HHAide. Asking if pcp agreeable to follow for HHC. Please phone Marya with verbal: [phone] [facility]04-14-2025 Note REFERRING PHYSICIAN: Silvino Pearl DO. CONSULTING PSYCHOLOGIST: Matthew Gibson, PhD. REASON FOR REFERRAL: Neuropsychological exam. HISTORY OF PRESENT ILLNESS: Ms. Acuna is a 78-year-old right-handed white female admitted to [facility] from [facility] on 08/15/2024 after developing left-sided weakness and slurred speech. Initially seen at [facility] where brain CT [...] mild concussions suffered after a career in [employer]. No residual deficits reported. No other GROUP UNDERWRITER injuries or illnesses. MENTAL HEALTH HISTORY: No [...] supervised. She was still driving. Emotionally, Ms. Acnua denies any depression, anxiety, or irritability. She made jokes throughoutthe interview consistent with this report. states she is in good spirits. Sleep is rated asadequate. Appetite indeterminate because of NPO. and Mrs. Acuna live in [place]. 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 She has a high school diploma from her hometown in [place], [place]. TEST RESULTS: I used the Cognistat, [...] be determined. MATTHEW GIBSON, PhD LESLIE/SHANNON JOB#: [id number] DICTATION ID#: [id number] Digitally Signed by MATTHEW GIBSON PhD on 08/27/2024 08:21 AM [facility] HospitalNmzfcosu94-73-5121 Note* Exam Date Time Procedure Performing Provider Status 08/25/24 1:46 PM XR Hand and Wrist 6 Views Left Buck LAY DO; Auth (Verified) [id number] ORIGINAL EXAMINATION: 3 XRAY VIEWS OF THE [...] 08/25/2024 2:27:26 PM Ordering Provider: JACKLYN Scott [id number] Note* Exam Date Time Procedure Performing Provider Status 08/25/24 1:45 PM XR Shoulder Minimum 2 Views Left JAMAR LAY DO; Auth (Verified) [id number] ORIGINAL EXAMINATION: TWO XRAY VIEWS OF THE [...] 08/25/2024 2:26:45 PM Ordering Provider: JACKLYN Scott [id number] Note* Exam Date Time Procedure Performing Provider Status 08/25/24 1:43 PM XR Humerus Minimum 2 Views Left ROSANNEJAMAR ; Auth (Verified) [id number] ORIGINAL EXAMINATION: TWO XRAY VIEWS OF THE [...] 08/25/2024 2:26:11 PM Ordering Provider: JACKLYN Scott [id number] Note* Exam Date Time Procedure Performing Provider Status 08/18/24 3:08 PM XR Chest 1 View Contributor_system, FUJ I; Auth (Verified) [id number] ORIGINAL EXAMINATION: ONE XRAY VIEW OF THE [...] Plan noteExtracted from: Title:Clinical Document Author:EZEQUIEL TURCIOS RN-TOURIST INFORMATION OFFICER Date:08/16/24 Acute Inpatient Rehab Histor y and Physical Date of Service: 08/16/2024 Date of Admission: 08/15/2024 Attending Physician: Dr. Pearl Impairment Group 1.1 left body involvement, right brain stroke Etiologic Diagnosis Hemorrhagic infarct involving right basal ganglia, mass effect with effacement of right lateral ventricle, tiny infarct in right cerebellum History of Present Illness 78-year-old female noted to home in inpatient rehab from [facility] stay 08/02 - 08/15 who is past medical history of coronary artery disease, diabetes mellitus type 2, atrial relation, hypertension, osteoarthritis, and hyperlipidemia who presented to the emergency room with noted left-sided weakness and slurred speech. She originally presented to [facility] with CT of the head was obtained showed no acute hemorrhage or large territory stroke. CTA showed mid right M1 occlusion however patient was not a TNK candidate. She was then transferred to a [facility] for further management. CT of head showed [...] feedings. Patient deemed medically stable transferred to [facility] for physical and occupational [...] with spouse, first- floor set up. Primary Rod Hanger: Self. Safe place to go: Yes. Lives [...] Rate80(AUG 15 20:06)80(AUG 15 20:06)80(AUG 15 20:06) FQD210(AUG 16 00:03)128(AUG 16 00:03)140(AUG 15 17:47) DBP76(AUG 16 00:03)76(AUG 16 00:03)80(AUG 15 17:47) 36hr Labs 08/15 1805 Blood Glucose, Qxgmdalyc484J Blood Glucose, Yikgxlmtq526H Blood Glucose TSee Flowsheet Assessment/Plan Debility and [...] and it is both accurate and complete. [facility] 04-04-2025 Physical medicine and rehab Consult note INPATIENT REHAB MEDICAL CONSULT DATE OF ADMISSION: 08/16/2024 CC: Acute right basal hemorrhage HISTORY OF PRESENT ILLNESS: This is a 78-year-old female admitted to [facility] unit from [facility] stay 08/02 - 08/15 who has a history of CAD, DM2, atrial fibrillation and hypertension who presented to the ER after notingleft-sided weakness and slurred speech. Originally presented to [facility] where CT head [...] was deemed medically stable and transferred to [facility] for physical and occasional [...] Rate80(AUG 15 20:06)80(AUG 15 20:06)80(AUG 15 20:06) JOK553(AUG 16 00:03)128(AUG 16 00:03)140(AUG 15 17:47) DBP76(AUG [...] reviewed. 36hr Labs / 1805 Blood Glucose, Yzsrvplkk172L Blood Glucose, Dhxfnythq338W Blood Glucose TSee Flowsheet ASSESSMENT AND PLAN: [...] will follow during acute rehabilitation stay at [facility] with the goal [...] CATHERINE DUEÑAS on 08/17/2024 04:53 PM Tyler [id number] Physical medicine and rehab History and physical [...] noted to home in inpatient rehab from [facility] stay 08/02 -08/15 who is past medical history of coronary artery disease, diabetes mellitus type 2, atrial relation, hypertension, osteoarthritis, and hyperlipidemia who presented to the emergency room with noted left-sided weakness and slurred speech. She originally presented to [facility] with CT of the head was obtained showed no acute hemorrhage or large territory stroke. CTA showed mid right M1 occlusion however patient was not a TNK candidate. [facility] showed acute [...] feedings. Patient deemed medically stable transferred to [facility] unit for physical and occupational [...] with spouse, first- floor set up. Primary Rod Hanger: Self. Safe place to go: Yes. Lives [...] Rate80(AUG 15 20:06)80(AUG 15 20:06)80(AUG 15 20:06) SGO192(AUG 16 00:03)128(AUG 16 00:03)140(AUG 15 17:47) DBP76(AUG 16 00:03)76(AUG 16 00:03)80(AUG 15 17:47) 36hr Labs 08/15 1805 Blood Glucose, Aflhsexxm503I Blood Glucose, Tnbxjmtag959M Blood Glucose TSee Flowsheet Assessment/Plan Debility and [...] EZEQUIEL TURCIOS on 08/22/2024 05:17 AM Tyler [id number] Miscellaneous Notes* Nursing Notes - Robson Steel [...] pacing over x3-5 sessions Outcome: Ongoing Problem: BOOKKEEPING TEACHER - Cognition Goal: Orientation Log - Patient [...] pacing over x3-5 sessions Outcome: Ongoing Problem: BOOKKEEPING TEACHER - Cognition Goal: Orientation Log - Patient [...] Optimal Comfort and Wellbeing 08/10/2024 1809 by Abgiail Trinh RN Outcome: Progressing 08/10/2024 1808 by [...] Hepatology, and Nutrition Clinical Fellow PGY-4 Pager: [phone] * Plan of Care - Manisha Cheema [...] what the specific medication was. Daughter, Keagan [phone] would be able to answer questions. Catherine [...] oropharyngeal swallow function to most appropriately guide BOOKKEEPING TEACHER plan of care Outcome: Met Goal: Bolus [...] readiness for diet advancement Outcome: Met Problem: BOOKKEEPING TEACHER - Cognition Goal: Orientation Log - Patient [...] better assess deficits and most appropriately guide BOOKKEEPING TEACHER plan of care Outcome: Met Goal: Attention: [...] of Care: 1. Diet: NPO. Advancement per team/BOOKKEEPING TEACHER recommendation 2. Ordered TF: Glucerna 1.5 @ [...] readiness for diet advancement Outcome: Ongoing Problem: BOOKKEEPING TEACHER - Cognition Goal: Orientation Log - Patient [...] better assess deficits and most appropriately guide BOOKKEEPING TEACHER plan of care Outcome: Ongoing * Nursing [...] change from previous assessment. [facility] [place] [facility] [place] accompanied by Denae ENRIQUEZ. T [...] under emergency consent. SURGEON(S): Prema Ramos MD POWER SEWING MACHINE OPERATOR(S): None ANESTHESIA: Monitored anesthesia care [...] Freeclimb 70/Serjio 7 was advanced over a Pledge51man microcatheter which was advanced over a synchro [...] - 08/02/2024 3:26 PM EDT Lindsay Acuna ([id number]) PRE OPERATIVE DIAGNOSIS Cerebral infarction due to [...] - Primary ANESTHESIOLOGIST Anesthesiologist: Tameka Ruth MD INSTRUCTOR WEAVING: Bebo Barboza APRN-INSTRUCTOR WEAVING SURGICAL STAFF Corrosion Control Engineer: Rachell Ruffin RN Planning Engineer: Paulina Muñiz; Radha Morales COMPLICATIONS None ESTIMATED BLOOD LOSS Minimal SPECIMENS No specimen sent * No specimens in log * Prema Ramos MD August 02, 2024 3:26 PM documented in [facility] [place] History of Present illness Narrative* OWEN Benavides - 08/15/2024 9:01 AM EDT Care Management Discharge Note Selected Continued Care - Admitted Since 08/02/2024 Destination Coordination complete. Service Provider Services Address Phone Fax Patient Preferred [facility] [address] [place] [phone] -- -- Internal Comment last updated by OWEN Benavides 08/15/2024 0901 Report fax: [phone] Transport Request Mode of Transfer: [facility] Name of Discharge Transport Company: [facility]charge [facility] ETA: 08/15/2024 @ 1030 Patient medically stable for discharge per physician/medical team. Pt has neurology appointment scheduled. Pt/ to schedule appointment with PCP. Patient/Molder Sweep remain in agreement withthe discharge plan. BULMARO Allen Meter Tester Polyphase * OWEN Benavides - 08/14/2024 3:17 PM [...] numbersfor RN report tomorrow morning. BULMARO Allen Meter Tester Polyphase * Marybeth Ayoub - 08/14/2024 2:51 PM EDT Care Management Progress Note Transportation for discharge arranged Mode of Transfer: (P) S Name of Discharge Transport Company: (P) [facility]charge [facility] ETA: (P) 08/15/2024 @ 1030 Pick-up from [facility] 1032/A Destination Tyler ALVARADO [address] [facility] [id number] OWEN Morrell Meter Tester Polyphase Animal Care Technician [phone] * Jazzy Aguiar - 08/14/2024 9:47 AM [...] position Mobility Assessment/Intervention: Supine to Sit Mobility Lake Level: Supine->Sit: moderate assist (50% patient effort) Physical Assist: Supine->Sit: 2 person assist Bed Features/Set-up: Supine->Sit: Head of bed elevated, Use of bed rail Skilled Rationale: Verbal cues, Tactile cues, Hand placement, Positioning, Technique of activity Skilled Intervention/Details: Supine->Sit: Cues for technique of transfer and pt needing increased assistance for managing legs and trunk to EOB positioning Transfer Assessment/Intervention: Sit to Stand Transfer Lake Level: Sit->Stand: moderate assist (50% patient effort) [...] hand held support Stand to Sit Transfer Lake Level: Stand->Sit: moderate assist (50% patient effort) Physical Assist: Stand->Sit: 2 person assist Assistive Device: Stand->Sit: gait belt, hand held assist Skilled Rationale: Verbal cues, Tactile cues, Hand placement, Positioning, Controlled descent for sitting Skilled Intervention/Details: Stand->Sit: Cues for positioning with BSC and recliner, pt provided bilat hand held support and needing increased support for managing a controlled descent Bed-Chair Transfer Lake Level: Bed<->Chair: maximum assist (25% patient effort) [...] managing L side during transfer Toilet Transfer Lake Level: Toilet: moderate assist (50% patient effort) [...] upright gaze when standing Outcome Score(s): CURRENT [facility] Daily Activity Inpatient Short Form Putting on/Taking Off Lower Body Clothin - Total Assistance Bathin - A Lot of Assistance Toiletin - Total Assistance Putting on/Taking Off Upper Body Clothin - A Little Assistance Groomin - A Little Assistance Eatin - Total Assistance CURRENT [facility] Activity Raw Score: [address] [facility] Activity Functional Limitation/Modifier: 70.42% Currently Impaired [...] person, Oriented to place, Oriented to situation ("[employer]" "hospital" "May" "2024" "stroke") Following Commands: Follows [...] blocking Mobility Assessment/Intervention: Supine to Sit Mobility Lake Level: Supine->Sit: moderate assist (50% patient effort) [...] sitting) Transfer Assessment/Intervention: Sit to Stand Transfer Lake Level: Sit->Stand: moderate assist (50% patient effort) Physical Assist: Sit->Stand: 2 person assist Assistive Device: Sit->Stand: gait belt Skilled Rationale: Arm in arm, Patellar block, Ischial assist, Facilitate anterior shift, Full extension to upright positioning/posture, Finding/maintaining midline positioning Skilled Intervention/Details: Sit->Stand: repeat cues to avoid significant L lean with improvement last standing. x1 from EOB, x2 from BSC Stand to Sit Transfer Lake Level: Stand->Sit: moderate assist (50% patient effort) Physical Assist: Stand->Sit: 2 person assist Assistive Device: Stand->Sit: gait belt Skilled Rationale: Arm in arm, Controlled descent for sitting Skilled Intervention/Details: Stand->Sit: last trial assisted R hand to recliner arm rest and ongoing cues for wt shift to R Bed-Chair Transfer Lake Level: Bed<->Chair: maximum assist (25% patient effort) [...] Assessment/Intervention: Stairs Assessment/Intervention: Outcome Score(s): CURRENT [facility] Basic Mobility Inpatient Short Form Turning [...] a railin - Total Assistance CURRENT [facility] Mobility Raw Score: [address] [facility] Mobility Functional Limitation: 86.62% Impaired in [...] 10 Treating Therapist: Shaina Rosales PT, DPT [id number] 08/14/2024 Additional Details: PT Co-Eval/Treatment Information Co-evaluation/co-treatment [...] on the below outcome measures/assessment score(s) and BOOKKEEPING TEACHER clinicaljudgment, discharge destination recommendation is: IPR Barriers to discharge home: 1:1 assist needed for IADL's including medication management and finances Supporting factors for discharge setting: Impaired swallow function limiting nutritional status andsafety with oral intake, Impaired cognitive skills limiting safety/insight Acute BOOKKEEPING TEACHER Outcomes Tracking Communicate basic wants and needs?: [...] independent carry over. Strong family support. Ongoing BOOKKEEPING TEACHER s indicated. Subjective information: Alert, present. SO referenced his notes from yesterday and reportedcarry over of exercises yesterday. Patient with zero recall Pain: Nonverbal indicator not present Precautions: Patient Safety Communication Prior to Visit: Nursing Lines/Tubes/Drains (Rehab Status): Telemetry, Tube feed Existing Precautions/Restrictions: fall Respiratory Status: O2 Sat (%): 96 % (08/14 0711) O2 Device: room air (08/14 0947) Acute BOOKKEEPING TEACHER Goals Plan of Care by Tanja Cason BOOKKEEPING TEACHER at 08/14/2024 2:42 PM Version 1 of [...] RoM to achieve technique. Outcome: Ongoing Problem: BOOKKEEPING TEACHER - Cognition Goal: Orientation Log - Patient [...] next session: 08/14 - ongoing exercises, education BOOKKEEPING TEACHER Outcomes: FOIS 2 Speech Language Pathologist: Tanja Cason BOOKKEEPING TEACHER Time In: 836 Time Out: 904 Total Visit Time: 28 minutes Total Treatment Time (skilled, billable minutes): 28 minutes Non-billable assistance during session: na Assisted by during session: na PPE used during patient interaction: gloves Patient location/status at end of session: bed with head of bed elevated Patient alarms at end of session: none altered Needs in reach. BOOKKEEPING TEACHER Evaluation and Treatment Time Speech Therapy - Individual 06656: 14 Swallowing Dysfunction Treatment 20333: 14 Upon discontinuation of Acute Care Speech [...] on the below outcome measures/assessment score(s) and BOOKKEEPING TEACHER clinicaljudgment, discharge destination recommendation is: Inpatient Rehab Facility Barriers to discharge home: 1:1 assist needed for IADL's including medication management and finances Supporting factors for discharge setting: Impaired swallow function limiting nutritional status andsafety with oral intake, Impaired cognitive skills limiting safety/insight Acute BOOKKEEPING TEACHER Outcomes Tracking Communicate basic wants and needs?: [...] O2 Device: room air (08/13 710) Acute BOOKKEEPING TEACHER Goals Plan of Care by Tanja Cason BOOKKEEPING TEACHER at 08/13/2024 11:10 AM Version 1 of [...] 10 reps this session. Outcome: Ongoing Problem: BOOKKEEPING TEACHER - Cognition Goal: Orientation Log - Patient [...] considerations: Cognition Patient Instruction/Education comments: Role of BOOKKEEPING TEACHER, presence and normalized frustration with cognitive-communicative impairments. Focused on memory this date and that patient does not recall education so perseverative questions are normal. Reviewed intermittent silent aspiration from MBS last weekand ongoing signs of dysphagia this session, will plan to coordinate timing for repeat instrumentalwith care team Plan for next session: 08/13 -fair BOOKKEEPING TEACHER Outcomes: FOIS 2 Speech Language Pathologist: RIKI [...] of session: none altered Needs in reach. BOOKKEEPING TEACHER Evaluation and Treatment Time Speech Therapy - Individual 76035: 12 Swallowing Dysfunction Treatment 04249: 13 Upon discontinuation of Acute Care Speech Therapy Services or patient discharge from the hospital this note represents the current Speech Therapy Discharge Summary * OWEN Benavides - 08/12/2024 3:21 PM EDT Placement Plan Expected Discharge Date: 08/14/2024 Referred Level of Care: IPR Barriers: Medical Readiness & Precertification Current Referrals and Status 1. Tyler Garcia-accepted IPR started precertification today. BULMARO Allen Meter Tester Polyphase * Jazzy Aguiar - 08/12/2024 10:46 AM [...] sinkside Mobility Assessment/Intervention: Supine to Sit Mobility Lake Level: Supine->Sit: moderate assist (50% patient effort) [...] positioning Transfer Assessment/Intervention: Sit to Stand Transfer Lake Level: Sit->Stand: maximum assist (25% patient effort) [...] maintaining upright posture Stand to Sit Transfer Lake Level: Stand->Sit: maximum assist (25% patient effort) Physical Assist: Stand->Sit: 2 person assist Assistive Device: Stand->Sit: gait belt, hand held assist Skilled Rationale: Verbal cues, Tactile cues, Hand placement, Positioning, Controlled descent for sitting Skilled Intervention/Details: Stand->Sit: Cues for positioning with recliner and using BUEs to help with appropriate positoining of hips in chair Bed-Chair Transfer Lake Level: Bed<->Chair: maximum assist (25% patient effort) Physical Assist: Bed<->Chair: 2 person assist Assistive Device: Bed<->Chair: gait belt Skilled Rationale: Verbal cues, Tactile cues, Hand placement, Positioning, Technique of activity Skilled Intervention/Details: Bed<->Chair: x1 from EOB to recliner on R. Pt needing increasedsupport for managing L side and sequencing steps for appropriate positioning with recliner Outcome Score(s): CURRENT -[facility] Daily Activity Inpatient Short Form Putting on/Taking Off Lower Body Clothin - Total Assistance Bathin - A Lot of Assistance Toiletin - Total Assistance Putting on/Taking Off Upper Body Clothin - A Lot of Assistance Groomin - A Lot of Assistance Eatin - Total Assistance CURRENT [facility] Activity Raw Score: 9 CURRENT -[facility] Activity Functional Limitation/Modifier: 79.59% Currently [...] speech and L hemiplegia. She presented to [facility] and was seen on Telestroke, [...] goal TF volume. Pt last assessed by BOOKKEEPING TEACHER 08/08 with recommendations for NPO. S/p PEG [...] chips. Will also increase free water flushes. BOOKKEEPING TEACHER to see pt tomorrow. Nutrition Focused Physical Exam: Nutrition Focused Physical Exam Completed?: completed Subcutaneous Fat Loss: Orbital Region (Orbital Fat Pads): WDL Cheek Region (Buccal Fat Pads): WDL Upper Arm Region (Triceps): WDL Thoracic and Lumbar Region (Ribs, Lower Back, Midaxillary Line): WDL Muscle Wasting: [place] Region (Temporalis Muscle): deferred (lac over eyebrow) [...] kg (172 lb) 06/26/24 78.9 kg (174 lb)-[facility] 05/31/24 79 kg (174 lb 2.6 oz)-[facility] 11/28/23 80.6 kg (177 lb 9.6 oz)-[facility] 09/29/23 84 kg (185 lb)-[facility] meds reviewed: Scheduled: Reviewed, includes insulin, [...] Needs: Weight Used: 61 kg (IBW) EEN: [id number] kcal/day (25-30 kcal/kg) EPN: 73-92 g/day (1.2-1.5 g/kg) EFN: 1830 mL/day (30 mL/kg) or per primary team Malnutrition Statement: Does the patient meet criteria for malnutrition: No *Based on [employer] Academy and ASPEN Indicators to Diagnose Malnutrition (AAIM) criteria (2012) Tianna Murray RD, LD, [facility] Pager #[phone] * Katie Ramos, PT - 08/12/2024 10:22 [...] standing. Mobility Assessment/Intervention: Supine to Sit Mobility Lake Level: Supine->Sit: moderate assist (50% patient effort) Physical Assist: Supine->Sit: 2 person assist Bed Features/Set-up: Supine->Sit: Head of bed elevated Skilled Rationale: Verbal cues, Tactile cues, Hand placement, Technique of activity Skilled Intervention/Details: Supine->Sit: verbal/tactile cues for instruction on transfer technique and mod A x 2 for LE and trunk management. Transfer Assessment/Intervention: Sit to Stand Transfer Lake Level: Sit->Stand: maximum assist (25% patient effort) Physical Assist: Sit->Stand: 2 person assist Assistive Device: Sit->Stand: gait belt Skilled Rationale: Verbal cues, Tactile cues, Hand placement, Technique of activity Skilled Intervention/Details: Sit->Stand: x2 trials with verbal/tactile cues for instruction on transfer technique, hand placement, and blocking left knee. Bed-Chair Transfer Lake Level: Bed<->Chair: maximum assist (25% patient effort) Physical Assist: Bed<->Chair: 2 person assist Assistive Device: Bed<->Chair: gait belt Skilled Rationale: Verbal cues, Tactile cues, Hand placement, Technique of activity Skilled Intervention/Details: Bed<->Chair: x1 trial from EOB to chair to the right. Verbal/tactile cues for instruction on transfer technqiue, blocking left knee. Outcome Score(s): CURRENT [facility] Basic Mobility Inpatient Short Form Turning over in bed: 2 - A Lot of Assistance Moving from lying on back to sittin - Total Assistance Moving to and from bed to chair: 1 - Total Assistance Sitting/standing from chair: 1 - Total Assistance Walk in hospital room: 1 - Total Assistance Climbing 3-5 steps with a railin - Total Assistance CURRENT [facility] Mobility Raw Score: [address] [facility] Mobility Functional Limitation: 92.36% Impaired in [...] Physical Therapy Discharge Summary. * Radha Gr, 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 - 08/11/2024 7:15 AM EDT NEUROVASCULAR STROKE SERVICE Daily Progress Note IDENTIFYING INFORMATION Lindsay Acuna MR# [id number] 08/11/2024 HISTORY OF PRESENT ILLNESS Lindsay Acuna is a 78 y.o. female with PMH significant for CAD, HTN, HLD, T2DM, Afib (on Eliquis, although patient reports she has not been taking it) who presents with L hemiplegia, slurred speech. LKW 0915 on 08/02, later found down with slurred speech and L hemiplegia. She presented to [facility] and was seen on Telestroke, [...] 2b revascularization. INTERVAL HISTORY 08/05: Transfer to [place]. MBS tomorrow 08/06: Failed MBS. Increased lopressor. [...] today 08/11 -Rate controlled on metoprolol Dysphagia: -BOOKKEEPING TEACHER following -NPO, DHT + TF -Failed MBS [...] Lindsay Acuna will likely be discharged to [facility] when medically ready Radha Gr, 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 08/11/2024 10:17 AM VITAL SIGNS Temp: [97.2 [...] for specific therapeutic recommendations, please see the family services manager report of the speech pathologist. Examination performed [...] and neurological examinations as recorded by the BANK CREDIT CARD COLLECTION CLERK repeated and confirmed. I have personally reviewed [...] tooth. Blood cx unremarkable. * Radha Gr, JASIEL-TOURIST INFORMATION OFFICER - 08/10/2024 7:14 AM EDT NEUROVASCULAR STROKE SERVICE Daily Progress Note IDENTIFYING INFORMATION Lindsay Acuna MR# [id number] 08/10/2024 HISTORY OF PRESENT ILLNESS Lindsay Acuna is a 78 y.o. female with PMH significant for CAD, HTN, HLD, T2DM, Afib (on Eliquis, although patient reports she has not been taking it) who presents with L hemiplegia, slurred speech. LKW 0915 on 08/02, later found down with slurred speech and L hemiplegia. She presented to [facility] and was seen on Telestroke, [...] 2b revascularization. INTERVAL HISTORY 08/05: Transfer to [place]. MBS tomorrow 08/06: Failed MBS. Increased lopressor. [...] as above -Rate controlled on metoprolol Dysphagia: -BOOKKEEPING TEACHER following -NPO, DHT + TF -Failed MBS [...] Lindsay Acuna will likely be discharged to [facility] when medically ready Radha Gr, JASIEL-TOURIST INFORMATION OFFICER 08/10/2024 7:14 AM VITAL SIGNS Temp: [97.4 [...] for specific therapeutic recommendations, please see the family services manager report of the speech pathologist. Examination performed [...] skin and external bumper. - If used longterm, PEG should be changed every 3-6 months [...] Hepatology, and Nutrition Clinical Fellow PGY-4 Pager: [phone] For follow up questions regarding this patient 7am to 5pm, contact the IBD consults fellow or DAHLIA on [employer]. [facility]--> Internal Medicine--> Gastroenterology, Hepatology, & Nutrition--> IBD Consult Service Fel Day OR IBD Consult Service DAHLIA Day For urgent/stat calls or new consults 5pm to 7am or all day on the weekend, please page the on-callGI fellow on Jana Mobilea. [facility]--> Internal Medicine--> Gastroenterology, Hepatology, & Nutrition--> 1st Call Fel Miriam OR STAT/NEW GI Cons Wknd Day Cosigned by Niru Koch MD at 08/10/2024 2:11 PM EDT * OWEN Benavides - 08/09/2024 3:34 PM EDT Placement Plan Expected Discharge Date: Referred Level of Care: IPR Barriers: Medical Readiness and Precertification Current Referrals and Status 1. [facility] IPR-accepted IPR will start precertification on Monday after updated therapy notes are in. For Case Management assistance for the weekend, please contact CM for assistance as needed (8:00am-4:30pm) BASH: [phone] Maria: [phone] Johan: [phone] Ross: [phone] For Social Work assistance for the weekend, please contact for assistance as needed (8:00am - 4:30pm): BASH: [phone] Maria: [phone] Johan: [phone] Ross: [phone] * Radha Gr APRN-TOURIST INFORMATION OFFICER - 08/09/2024 8:07 AM EDT NEUROVASCULAR STROKE SERVICE Daily Progress Note IDENTIFYING INFORMATION Lindsay Acuna MR# [id number] 08/09/2024 HISTORY OF PRESENT ILLNESS Lindsay Acuna is a 78 y.o. female with PMH significant for CAD, HTN, HLD, T2DM, Afib (on Eliquis, although patient reports she has not been taking it) who presents with L hemiplegia, slurred speech. LKW 0915 on 08/02, later found down with slurred speech and L hemiplegia. She presented to [facility] and was seen on Telestroke, [...] 2b revascularization. INTERVAL HISTORY 08/05: Transfer to [place]. MBS tomorrow 08/06: Failed MBS. Increased lopressor. [...] as above -Rate controlled on metoprolol Dysphagia: -BOOKKEEPING TEACHER following -NPO, DHT + TF -Failed MBS [...] Lindsay Acuna will likely be discharged to [facility] when medically ready Radha Gr, JASIEL-TOURIST INFORMATION OFFICER 08/09/2024 8:07 AM VITAL SIGNS Temp: [97.3 [...] report. Electronically Signed By: Alissa Chun M.D., [facility] on 08/08/2024 4:14 PM XR FLUORO MODIFIED BARIUM SWALLOW WITH SPEECH Final Result IMPRESSION: 1. Inconsistent silent and sensate aspiration of thin, mildly thick/nectar, and moderately thick/honey consistencies. 2. No penetration or aspiration with pudding consistency. For additional analysis of the fluoroscopic examination for specific therapeutic recommendations, please see the family services manager report of the speech pathologist. Examination performed [...] on the below outcome measures/assessment score(s) and BOOKKEEPING TEACHER clinicaljudgment, discharge destination recommendation is: Inpatient Rehab Facility Acute BOOKKEEPING TEACHER Outcomes Tracking Communicate basic wants and needs?: [...] pressions and introduction to effortful swallow exercise. BOOKKEEPING TEACHER provided education regarding recommendation of NPO given [...] constraints (transport arrived for pt's CT scan). BOOKKEEPING TEACHER will follow as able. Subjective information: Patient upright in chair, at bedside. Agreeable to BOOKKEEPING TEACHER session. Pain: General Pain Documentation (Adult, OB, [...] room air Flow (L/min): [3] 3 Acute BOOKKEEPING TEACHER Goals Plan of Care by RIKI Penaloza [...] phsyiology, risks of aspiration pneumonia). Educated regarding BOOKKEEPING TEACHER role in swallow rehab and future POC Plan for next session: 08/06: cog tx and dysphagia exercises BOOKKEEPING TEACHER Outcomes: FOIS: 1 Speech Language Pathologist: RIKI Penaloza Time In: 1310 Time Out: 1330 Total Visit Time: 20 minutes Total Treatment Time (skilled, billable minutes): 20 minutes Non-billable assistance during session: NA Assisted by during session: NA PPE used during patient interaction: gloves Patient location/status at end of session: chair Patient alarms at end of session: none altered Needs in reach. BOOKKEEPING TEACHER Evaluation and Treatment Time Swallowing Dysfunction Treatment 01907: 20 Upon discontinuation of Acute Care Speech [...] feedback Mobility Assessment/Intervention: Supine to Sit Mobility Lake Level: Supine->Sit: moderate assist (50% patient effort) Physical Assist: Supine->Sit: 2 person assist Bed Features/Set-up: Supine->Sit: Use of bed rail, Head of bed elevated Skilled Rationale: Sequencing, Verbal cues, Hand placement, Positioning Skilled Intervention/Details: Supine->Sit: increased time/cues Transfer Assessment/Intervention: Sit to Stand Transfer Lake Level: Sit->Stand: moderate assist (50% patient effort) Physical Assist: Sit->Stand: 2 person assist Assistive Device: Sit->Stand: gait belt, hand held assist Skilled Rationale: Positioning, Sequencing, Hand placement, Verbal cues Skilled Intervention/Details: Sit->Stand: Pt educated in sit to stand transfers x 2 attempts, one from EOB and one from chair Bed-Chair Transfer Lake Level: Bed<->Chair: maximum assist (25% patient effort) [...] Assessment/Intervention: Stairs Assessment/Intervention: Outcome Score(s): CURRENT [facility] Basic Mobility Inpatient Short Form Turning [...] a railin - Total Assistance CURRENT [facility] Mobility Raw Score: [address] [facility] Mobility Functional Limitation: 86.62% Impaired in [...] positioning Mobility Assessment/Intervention: Supine to Sit Mobility Lake Level: Supine->Sit: moderate assist (50% patient effort) [...] positioning Transfer Assessment/Intervention: Sit to Stand Transfer Lake Level: Sit->Stand: moderate assist (50% patient effort) Physical Assist: Sit->Stand: 2 person assist Assistive Device: Sit->Stand: gait belt, hand held assist Skilled Rationale: Verbal cues, Tactile cues, Hand placement, Positioning, Technique of activity Skilled Intervention/Details: Sit->Stand: x1 from EOB, x1 from recliner. Cues for technique and assuming an upright posture once standing Stand to Sit Transfer Lake Level: Stand->Sit: moderate assist (50% patient effort) Physical Assist: Stand->Sit: 2 person assist Assistive Device: Stand->Sit: gait belt, hand held assist Skilled Rationale: Verbal cues, Tactile cues, Hand placement, Positioning, Controlled descent for sitting Skilled Intervention/Details: Stand->Sit: Cues for positioning with recliner and using arms to help with controlled descent into chair Bed-Chair Transfer Lake Level: Bed<->Chair: maximum assist (25% patient effort) [...] appropriately position with chair. Outcome Score(s): CURRENT [facility] Daily Activity Inpatient Short Form Putting on/Taking Off Lower Body Clothin - Total Assistance Bathin - A Lot of Assistance Toiletin - Total Assistance Putting on/Taking Off Upper Body Clothin - A Lot of Assistance Groomin - A Lot of Assistance Eatin - Total Assistance CURRENT [facility] Activity Raw Score: 9 CURRENT [facility] Activity Functional Limitation/Modifier: 79.59% Currently [...] Progress Note IDENTIFYING INFORMATION Lindsay Acuna MR# [id number] 08/08/2024 HISTORY OF PRESENT ILLNESS Lindsay Acuna is a 78 y.o. female with PMH significant for CAD, HTN, HLD, T2DM, Afib (on Eliquis, although patient reports she has not been taking it) who presents with L hemiplegia, slurred speech. LKW 0915 on 08/02, later found down with slurred speech and L hemiplegia. She presented to [facility] and was seen on Telestroke, [...] 2b revascularization. INTERVAL HISTORY 08/05: [place] [facility] [place]: Failed MBS. Increased lopressor. Spouse [...] as above -Rate controlled on metoprolol Dysphagia: -BOOKKEEPING TEACHER following -NPO, DHT + TF -Failed MBS [...] Lindsay Acuna will likely be discharged to [facility] when medically ready Bella Cardenas, JASIEL-TOURIST INFORMATION OFFICER 08/08/2024 2:53 PM VITAL SIGNS Temp: [97.4 [...] for specific therapeutic recommendations, please see the family services manager report of the speech pathologist. Examination performed [...] bed availability Current Referrals and Status 1. [facility] notified student confirming after call with Patient's daughter that [facility] is facility of choice. Facility reserved. AVS/DAVE [...] patient's spouse are agreeable to [facility] as facility of choice, and Gisela is agreeable to [facility] as well. Updated SW student. Simin Resendez, RN, BSN Clinical Director Long Term Care [facility] * Chela Hannon - 08/07/2024 2:08 PM EDT Placement Plan GOLF BALL MOLDER met with Patient and spouse at bedside to discuss facility choice. Spouse mentioned that [facility] was first choice, though GOLF BALL MOLDER provided update that [facility] could not accept after reviewing. GOLF BALL MOLDER reviewed other IPR options with Spouse, who reports that [facility] would be facility of choice. Spouse discussed with daughter Gisela via phone, who is in agreement but requestsa return call. GOLF BALL MOLDER notified CCM. Chela Snyder Social Work Student Available by Secure Chat Cosigned by OWEN Keller at 08/07/2024 2:11 PM EDT * Bella Cardenas, JASIEL-TOURIST INFORMATION OFFICER - 08/07/2024 6:54 AM EDT NEUROVASCULAR STROKE SERVICE Daily Progress Note IDENTIFYING INFORMATION Lindsay Acuna MR# [id number] 08/07/2024 HISTORY OF PRESENT ILLNESS Lindsay Acuna is a 78 y.o. female with PMH significant for CAD, HTN, HLD, T2DM, Afib (on Eliquis, although patient reports she has not been taking it) who presents with L hemiplegia, slurred speech. LKW 0915 on 08/02, later found down with slurred speech and L hemiplegia. She presented to [facility] and was seen on Telestroke, [...] 2b revascularization. INTERVAL HISTORY 08/05: [place] [facility] [place]: Failed MBS. Increased lopressor. Spouse [...] as above -Rate controlled on metoprolol Dysphagia: -BOOKKEEPING TEACHER following -NPO, DHT + TF -Failed MBS [...] Lindsay Acuna will likely be discharged to [facility] when medically ready Bella Cardenas APRN-TOURIST INFORMATION OFFICER 08/07/2024 3:06 PM VITAL SIGNS Temp: [97.5 [...] for specific therapeutic recommendations, please see the family services manager report of the speech pathologist. Examination performed [...] authorization, transportation Current Referrals and Status 1. [facility]: Available 2. [facility]: Available 3. [facility]: Available (pending PEG or diet and their MD requested aspirin started before discharge) 4. [facility]: Available 5. [facility]: Unavailable, out of network 6. [facility] Inpatient Rehab: Unavailable, Incorrect Level of Care 7. [facility] IPR: sent Met with patient and patient's spouse, Ike, at bedside to provide choice list. Ike called patient's daughter, Gisela Acuna, to discuss as well. Gisela requested information on private pay at [facility], messaged [facility] liaison and then provided information to Gisela. Gisela requested CM sendreferral to [facility] IPR. Plan for family to review choice list FREDRICK camargo/SW team will update patient and family regarding [facility] IPR response tomorrow morning. This CM's contact information provided to Ike Acuna and Gisela Acuna for any further questions. Simin Resendez RN, BSN Clinical Director Long Term Care [facility] * Florinda Velasquez, PT - 08/06/2024 [...] minutes Mobility Assessment/Intervention: Supine to Sit Mobility Lake Level: Supine->Sit: moderate assist (50% patient effort) Bed Features/Set-up: Supine->Sit: Head of bed elevated, Use of bed rail Skilled Rationale: Positioning, Sequencing Skilled Intervention/Details: Supine->Sit: step by step cues for sequencingg Transfer Assessment/Intervention: Sit to Stand Transfer Lake Level: Sit->Stand: moderate assist (50% patient effort) [...] left UE during transitional movements Bed-Chair Transfer Lake Level: Bed<->Chair: moderate assist (50% patient effort) Physical Assist: Bed<->Chair: 2 person assist Assistive Device: Bed<->Chair: gait belt, hand held assist Skilled Rationale: Positioning, Hand placement, Verbal cues, Sequencing Skilled Intervention/Details: Bed<->Chair: Pt educated in bed to BSC commode transfer x 2-3 steps with cues for LE sequencing, left LE weakness requiring intermittent blocking Gait/Functional Mobility Assessment/Intervention: Gait Assessment Lake Level: Gait: (mod/max) Physical Assist: Gait: 2 [...] buckling. Stairs Assessment/Intervention: Outcome Score(s): CURRENT [facility] Basic Mobility Inpatient Short Form Turning [...] a railin - Total Assistance CURRENT [facility] Mobility Raw Score: [address] [facility] Mobility Functional Limitation: 81.38% Impaired in [...] Physical Therapy Discharge Summary. * Nimesh Balderrama [facility] - 08/06/2024 1:42 PM EDT Department of Pharmacy Admission Medication Reconciliation Note Patient: Lindsay Acuna Room/Bed: 1043/A I have reviewed the patient's home medication list with the following sources Dispense Report. The home medication list status is: complete. All changes to the home medication list have been updated in [facility]. Updated [facility] Med List: Prior to Admission Medications Prescriptions [...] with any further questions. Name: Nimesh Balderrama [facility] Phone #: [phone] Date/Time: 08/06/2024 1:42 PM Time Spent: 10 [...] noted Mobility Assessment/Intervention: Supine to Sit Mobility Lake Level: Supine->Sit: moderate assist (50% patient effort) [...] completion. Transfer Assessment/Intervention: Sit to Stand Transfer Lake Level: Sit->Stand: (x 1 trial from EOB [...] and kyphotic posture. Stand to Sit Transfer Lake Level: Stand->Sit: moderate assist (50% patient effort) Assistive Device: Stand->Sit: gait belt (Arm and arm assist.) Skilled Rationale: Cues for increased safety, Initiation and execution of task, Technique of activity, Controlled descent for sitting, Ischial assist, Arm in arm, Tactile cues, Verbal cues, Hand placement, Sequencing, Positioning Bed-Chair Transfer Lake Level: Bed<->Chair: moderate assist (50% patient effort) [...] with left LE). Functional Mobility: Functional Mobility Lake Level: Functional Mobility/Gait: (Moderate-max assistance) Physical Assist: [...] decreased insight/awareness intodeficits. Outcome Score(s): CURRENT [facility] Daily Activity Inpatient Short Form Putting on/Taking Off Lower Body Clothin - Total Assistance Bathin - A Lot of Assistance Toiletin - Total Assistance Putting on/Taking Off Upper Body Clothin - A Lot of Assistance Groomin - A Lot of Assistance Eatin - Total Assistance ([place].) CURRENT [facility] Activity Raw Score: [address] [facility] Activity Functional Limitation/Modifier: 79.59% Currently Impaired [...] Occupational Therapy Discharge Summary. * Taran Traore, JASIEL-TOURIST INFORMATION OFFICER - 08/06/2024 7:49 AM EDT NEUROVASCULAR STROKE SERVICE Daily Progress Note IDENTIFYING INFORMATION Lindsay Acuna MR# [id number] 08/06/2024 HISTORY OF PRESENT ILLNESS Lindsay Acuna is a 78 y.o. female with PMH significant for CAD, HTN, HLD, T2DM, Afib (on Eliquis, although patient reports she has not been taking it) who presents with L hemiplegia, slurred speech. LKW 0915 on 08/02, later found down with slurred speech and L hemiplegia. She presented to [facility] and was seen on Telestroke, [...] 2b revascularization. INTERVAL HISTORY 08/05: Transfer to [place]. MBS tomorrow 08/06: Failed MBS. Increased lopressor. [...] as above -Rate controlled on metoprolol Dysphagia: -BOOKKEEPING TEACHER following -NPO, DHT + TF -Failed MBS [...] Lindsay Acuna will likely be discharged to [facility] when medically ready Taran Traore APRN-TOURIST INFORMATION OFFICER 08/06/2024 1:43 PM VITAL SIGNS Temp: [96.5 [...] for specific therapeutic recommendations, please see the family services manager report of the speech pathologist. Examination performed [...] Progress Note IDENTIFYING INFORMATION Lindsay Acuna MR# [id number] 08/05/2024 HISTORY OF PRESENT ILLNESS Lindsay Acuna is a 78 y.o. female with PMH significant for CAD, HTN, HLD, T2DM, Afib (on Eliquis, although patient reports she has not been taking it) who presents with L hemiplegia, slurred speech. LKW 0915 on 08/02, later found down with slurred speech and L hemiplegia. She presented to [facility] and was seen on Telestroke, [...] 2b revascularization. INTERVAL HISTORY 08/05: Transfer to [facility] tomorrow PHYSICAL EXAM Gen: awake, alert, [...] as above -Rate controlled on metoprolol Dysphagia: -BOOKKEEPING TEACHER following -NPO, DHT + TF -MBS tomorrow HLD, POA: -Atorvastatin 40 mg daily CAD, POA: -Hold ASA for 7 days due to ICH T2DM, POA: -SSI regular + accuchecks CKD Stage 3A, POA: Baseline Cr 1.3 -Avoid nephrotoxins, monitor Hypothyroidism, POA: -Continue home levothyroxine 75 mcg daily Disposition: Lindsay Acuna will likely be discharged to [facility] when medically ready Taran Traore APRN-TOURIST INFORMATION OFFICER 08/05/2024 2:19 PM VITAL SIGNS Temp: [97.8 [...] on the below outcome measures/assessment score(s), and BOOKKEEPING TEACHER clinical judgment, discharge destination recommendation is: Pending [...] Impaired cognitive skills limiting saf ety/insight Acute BOOKKEEPING TEACHER Outcomes Tracking Communicate basic wants and needs?: [...] oropharyngeal swallow function to most appropriately guide BOOKKEEPING TEACHER plan of care. Of note, patient is [...] Currentdeficits impact her safety and independence. Ongoing BOOKKEEPING TEACHER services are warranted. Subjective information: Awake, alert, [...] O2 Device: room air (08/05 0830) Acute BOOKKEEPING TEACHER Goals Plan of Care by Queta Gardner, BOOKKEEPING TEACHER at 08/05/2024 11:49 AM Version 1 of [...] oropharyngeal swallow function to most appropriately guide BOOKKEEPING TEACHER plan of care Outcome: Ongoing Problem: BOOKKEEPING TEACHER - Cognition Goal: Orientation Log - Patient [...] better assess deficits and most appropriately guide BOOKKEEPING TEACHER plan of care Outcome: Met Tx: Noted [...] for next session: 08/05: Good candidate; FERNANDO BOOKKEEPING TEACHER Outcomes: BOOKKEEPING TEACHER Outcomes / Standardized Measures Score The Orientation [...] wrist restraints, RN aware Needs in reach. BOOKKEEPING TEACHER Evaluation and Treatment Time Speech Therapy - Individual 95303: 8 Swallowing Dysfunction Treatment 73362: 9 Upon discontinuation of Acute Care Speech Therapy Services or patient discharge from the hospital this note represents the current Speech Therapy Discharge Summary * Chela Hannon - 08/05/2024 10:37 AM EDT Placement Plan Expected Discharge Date: TBD Referred Level of Care: IPR Barriers: medical stability, bed availability Current Referrals and Status 1. [facility]- sent; denied (Patient is OON) 2. [facility]- sent 3. [facility]- sent 4. [facility]- sent 5. [facility]- sent 6. [facility] GOLF BALL MOLDER met with Patient and Spouse at bedside to discuss discharge planning. Patient and spouse were agreeable to SW visit. GOLF BALL MOLDER discussed therapy recommendations with Spouse for Patient to go to [facility] at discharge. Spouse is agreeable to a referral being sent to [facility]. Referral sent. Spouse requested to speak to SW about assessing Patient for dementia. GOLF BALL MOLDER and bedside RN encouragedSpouse to discuss with Patient's outpatient provider. Chela Snyder, Social Work Student Available by Secure Chat Cosigned by OWEN Keller at 08/05/2024 11:22 AM EDT * Savana Leung, RD - 08/05/2024 10:10 AM EDT NUTRITION ASSESSMENT Nutrition Recommendations and Plan of Care: 1. Diet: NPO. Advancement per team/BOOKKEEPING TEACHER recommendation 2. Ordered TF: Glucerna 1.5 @ [...] time. Per team, pt failed bedside swallow. BOOKKEEPING TEACHER consulted for swallow eval. Past History No [...] kg (172 lb) 06/26/24 [facility] (174 lb)-[facility] 05/31/24 79 [facility] (174 lb 2.6 oz)-[facility] 11/28/23 80.6 kg (177 lb 9.6 oz)-[facility] 09/29/23 84 kg (185 lb)-[facility] Pt without significant weight change HEEL SPRAYER FIRST. Tmax: 97.8*F BP: (!) 173/94 Pulse (Heart [...] proximal second portion of the duodenum. BM: HEEL SPRAYER FIRST Urine: 725mL Skin: Raghu Score: 13 Active Wounds: Wound Sheath Site 08/02/24 1500 Right Radial (3) Wound Abrasion 08/02/24 2109 Left;Upper Face (3) Edema- None Estimated Nutrition Needs: Based on IBW (61.4kg) Estimated Kcals Needs: 0980-3700 kcals (25-30kcals/kg) Estimated Pro Needs: 74-92g Pro (1.2-1.5g/kg) Estimated Fluid Needs: Per MD Nutrition Focused Physical Exam Completed?: completed Subcutaneous Fat Loss: Orbital Region (Orbital Fat Pads): WDL Cheek Region (Buccal Fat Pads): WDL Upper Arm Region (Triceps): WDL Thoracic and Lumbar Region (Ribs, Lower Back, Midaxillary Line): WDL Muscle Wasting: [place] Region (Temporalis Muscle): deferred (lac over eyebrow) [...] (2012) ELVIRA Ho, RD, LD, CNSC Pager: [phone] * Rashad Rg MD - 08/05/2024 9:42 AM EDT 78F admitted to the [facility] with Rt M1 occlusion s/p TICI2b revascularization. [...] critical care time 31min. * Shanna Russ, JASIEL-TOURIST INFORMATION OFFICER - 08/05/2024 7:20 AM EDT NEUROCRITICAL CARE [...] Visual richards intact to confrontation. PERRL. 3mm honing machine operator production III, IV and : EOMI. No nystagmus. [...] aggressive pulm edema, OOB as toleratd - FNN3AHT, encourage pulmonary toileting Cards: Essential HTN HLD [...] TUBE FEEDING with meds (per DHT) - [place] Swallow Screening Result: failed=NPO Bowel regimen: - Last Bowel Movement: (prior to admission) - Senna 17.2 mg Q12H, miralax BID, suppository PRN Stress ulcer prophylaxis: - none Dysphagia - DHT placed - BOOKKEEPING TEACHER following; NPO continue following, on TF - [...] not indicated DVT: subcutaneous heparin [x] Lines [place]: n/a Marina: remove Rectal tube: n/a Enteral [...] the assigned neurocritical care provider (resident, fellow, BANK CREDIT CARD COLLECTION CLERK, orPA) or page/call the corresponding number below NCC1 (Beds 3797-4043): [place] # [phone], pager #[phone] NCC2 (Beds 9781-2182, 12 Nando, and overflow): [place] #: [phone], pager #[phone] * Florinda Velasquez, PT - 08/04/2024 1:36 [...] noted Mobility Assessment: Supine to Sit Mobility Lake Level: Supine->Sit: moderate assist (50% patient effort) [...] EOB Transfer Assessment: Sit to Stand Transfer [place] Level: Sit->Stand: moderate assist (50% patient effort) Physical Assist: Sit->Stand: 2 person assist Assistive Device: Sit->Stand: gait belt, hand held assist Skilled Rationale: Positioning, Sequencing, Hand placement, Verbal cues Skilled Intervention/Details: Sit->Stand: x 1 from EOB Bed-Chair Transfer Lake Level: Bed<->Chair: moderate assist (50% patient effort) Physical Assist: Bed<->Chair: 2 person assist Assistive Device: Bed<->Chair: gait belt, hand held assist Skilled Rationale: Positioning, Sequencing, Hand placement, Verbal cues Skilled Intervention/Details: Bed<->Chair: x 2-3 steps from bed to chair Gait/Functional Mobility: Stairs: Outcome Score(s): CURRENT [facility] Basic Mobility Inpatient Short Form Turning [...] a railin - Total Assistance CURRENT [facility] Mobility Raw Score: 10 CURRENT AM-[facility] Mobility Functional Limitation: 76.75% Impaired [...] Edema: Mobility Assessment: Supine to Sit Mobility Lake Level: Supine->Sit: moderate assist (50% patient effort) Physical Assist: Supine->Sit: 2 person assist Bed Features/Set-up: Supine->Sit: Head of bed elevated Skilled Rationale: Positioning, Hand placement, Verbal cues, Technique of activity Transfer Assessment: Sit to Stand Transfer [place] Level: Sit->Stand: moderate assist (50% patient effort) Physical Assist: Sit->Stand: 2 person assist Assistive Device: Sit->Stand: gait belt, hand held assist Skilled Rationale: Positioning, Hand placement, Verbal cues, Technique of activity Stand to Sit Transfer Lake Level: Stand->Sit: moderate assist (50% patient effort) Physical Assist: Stand->Sit: 2 person assist Assistive Device: Stand->Sit: hand held assist Skilled Rationale: Positioning, Hand placement, Verbal cues, Arm in arm, Controlled descent for sitting Bed-Chair Transfer Lake Level: Bed<->Chair: moderate assist (50% patient effort) [...] assessment and plan as documented by the BANK CREDIT CARD COLLECTION CLERK with my changes/additions added. Patient is a [...] ICH x 7 days - Statin - PT/OT/BOOKKEEPING TEACHER evaluation Pulmonary: No acute issues, appears to [...] and other supportive care as per the BANK CREDIT CARD COLLECTION CLERK note from the same day This patient [...] care services to the [facility] today [facility], [facility] and other care providers. Management of the above was performed. My time managing this critically ill patient included review of interval history, laboratories, radiology and cons ultation reports; performing a physical examination; discussing the patient with the multi-disciplinary team and managing life sustaining therapies to prevent imminent clinical deterioration. Richard Mejia MD Neurocritical Care Attending * Balbir Mccoy, 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 - 08/04/2024 7:44 AM EDT NEUROCRITICAL CARE [...] Visual richards intact to confrontation. PERRL. 3mm honing machine operator production III, IV and : EOMI. No nystagmus. [...] SpO2 >92%; wean FiO2 as tolerated - AWB9ALC, encourage pulmonary toileting Cards: Essential HTN HLD [...] TUBE FEEDING with meds (per [facility]) - [place] Swallow Screening Result: failed=NPO Bowel regimen: - Last Bowel Movement: (prior to admission) - Senna 17.2 mg Q12H, miralax at bedtime Stress ulcer prophylaxis: - none Dysphagia - DHT placed - BOOKKEEPING TEACHER following - Tube feed: Vital AF with [...] the assigned neurocritical care provider (resident, fellow, BANK CREDIT CARD COLLECTION CLERK, orPA) or page/call the corresponding number below NCC1 (Beds [phone]): [place] # [phone], pager #[phone] NCC2 (Beds 2535-4168, 12 Nando, and overflow): [place] #: [phone], pager #[phone] * Rafael Garcia MD - 08/03/2024 2:16 PM EDT NEUROVASCULAR Consult Daily Progress Note IDENTIFYING INFORMATION Lindsay Acuna MR# [id number] 08/03/2024 HISTORY OF PRESENT ILLNESS Lindsay Acuna is a 78 y.o. female with PMH significant for CAD, HTN, HLD, T2DM, Afib (on Eliquis, although patient reports she has not been taking it) who presents with L hemiplegia, slurred speech. She was last seen normal by her at 0915, later found down with slurred speech and L hemiplegia. She presented to [facility] and was seen on Telestroke, [...] speech and L hemiplegia. She presented to [facility] and was seen on Telestroke, [...] workup. Delbert Kasper MD * Nohelia Oconnell, BOOKKEEPING TEACHER - 08/03/2024 12:09 PM EDT Acute Care BOOKKEEPING TEACHER Speech/Language/Cognitive Evaluation Best mode of Communication: spoken language (regular speech) Discharge Recommendations: Based on the below outcome measures/assessment score(s) and BOOKKEEPING TEACHER clinicaljudgment, discharge destination recommendation is: (Skilled speech therapy services at next level of care) Barriers to discharge home: Cognitive impairments that impact safety and independence Supporting factors for discharge setting: Impaired swallow function limiting nutritional status andsafety with oral intake Acute BOOKKEEPING TEACHER Outcomes Tracking Communicate basic wants and needs?: [...] speech and L hemiplegia. She presented to [facility] and was seen on Telestroke,NIHSS [...] 0 Asthenia (A): 0 Strain (S): 0 BOOKKEEPING TEACHER Outcomes / Standardized Measures Score The Orientation [...] unable to respond. Total Score: 12 Acute BOOKKEEPING TEACHER Goals Plan of Care by Nohelia Oconnell BOOKKEEPING TEACHER at 08/03/2024 11:25 AM Version 1 of 1 Problem: Dysphagia Goal: Ongoing Assessment - Patient will participate in ongoing assessment by accepting various PO consistency trials with appropriate participation/oral acceptance and no significant respiratory complications to determine readiness for diet advancement Outcome: Ongoing Problem: BOOKKEEPING TEACHER - Cognition Goal: Orientation Log - Patient [...] better assess deficits and most appropriately guide BOOKKEEPING TEACHER plan of care Outcome: Ongoing Speech Language [...] of session: bed alarm Needs in reach. BOOKKEEPING TEACHER Evaluation and Treatment Time Speech Eval - Sound Production W/Lang Comp and Exp 08448: 11 Swallowing Eval 47296: 10 Upon discontinuation of Acute Care Speech [...] on the below outcome measures/assessment score(s) and BOOKKEEPING TEACHER clinicaljudgment, discharge destination recommendation is: Deferred to PT/OT recomendations related to mobility Current therapy frequency recommendation in acute care: Swallow Therapy Frequency: 5 times a week Acute BOOKKEEPING TEACHER Outcomes Tracking Communicate basic wants and needs?: [...] speech and L hemiplegia. She presented to [facility] and was seen on Telestroke,NIHSS [...] tiny 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 Prior BOOKKEEPING TEACHER history: No prior speech history per chart [...] and Liquids Trialed Modality Amount Ice Teaspoon, BOOKKEEPING TEACHER-fed 3x Thin Teaspoon 3x Oral Phase Function [...] Patient presents with presumed pharyngeal phase impairments. [place] Swallow Screen: (administered by: ZOE) [place] Swallow Screening Screening Exclusion Criteria: none, continue with [place] Swallow Screening Cognitive Screen: Orientation: able to [...] Ok for ice chips with RN supervision. BOOKKEEPING TEACHER will continue to follow for ongoing dysphagia management. Patient Education/Instruction Learners: Patient Education provided: Dysphagia recommendation risk: benefit analysis, Role of this discipline Teaching method: Verbal Education/Instruction Learner response: Needs review Learning preferences: Auditory Learning considerations: Cognition Plan for next session: 08/03: Good Prognosis, ongoing dysphagia management to determine readiness for diet advancement vs instrumental. Acute BOOKKEEPING TEACHER Goals Plan of Care by RIKI Hayes at 08/03/2024 11:25 AM Version 1 of 1 Problem: Dysphagia Goal: Ongoing Assessment - Patient will participate in ongoing assessment by accepting various PO consistency trials with appropriate participation/oral acceptance and no significant respiratory complications to determine readiness for diet advancement Outcome: Ongoing Problem: BOOKKEEPING TEACHER - Cognition Goal: Orientation Log - Patient [...] better assess deficits and most appropriately guide BOOKKEEPING TEACHER plan of care Outcome: Ongoing Speech Language Pathologist: RIKI Hayes, BCS-S Board Certified Specialist in Swallowing and Swallowing Disorders Available via NewGoTos Chat Time In: 1130 Time Out: 1151 Total Visit Time: 21 minutes Total Treatment Time (skilled, billable minutes): 21 minutes Non-billable assistance during session: none Assisted by during session: Patient's PPE used during patient interaction: gloves Patient location/status at end of session: bed with head of bed elevated Patient alarms at end of session: bed alarm Needs in reach. BOOKKEEPING TEACHER Evaluation and Treatment Time Speech Eval - Sound Production W/Lang Comp and Exp 28410: 11 Swallowing Eval 81659: 10 Upon discontinuation of Acute Care Speech Therapy Services or patient discharge from the hospital this note represents the current Speech Therapy Discharge Summary * Richard Mejia MD - 08/03/2024 10:30 AM EDT I have independently seen and examined the patient on 08/03/24. I agree with the history, examination, assessment and plan as documented by the BANK CREDIT CARD COLLECTION CLERK with my changes/additions added. Patient is a [...] the setting of ICH - Statin - PT/OT/BOOKKEEPING TEACHER evaluation Pulmonary: No acute issues, appears to [...] and other supportive care as per the BANK CREDIT CARD COLLECTION CLERK note from the same day This patient [...] care services to the patient today [facility], teaching and other care providers. Management [...] with assistance from spouse Care Management Plan GOLF BALL MOLDER met with Patient and Spouse at bedside to complete Initial Assessment. They were agreeable to SW visit. Patient was lethargic though able to answer some short questions. Patient consented to Spouse assisting with assessment. Spouse/Patient report that Patient has never completed a HCPOA. They expressed interest, and GOLF BALL MOLDER will follow to complete document when Patient is more alert and oriented. Spouse reports himself and Patient live in a ranch-style home with strong supports from their community, including 2 neighbors that have assisted at this time. He noted that himself and Patient recently returned from a visit to [facility] for their anniversary. Spouse reports that their 2 children will be visiting soon. GOLF BALL MOLDER explained SW role and offered resources. Spouse [...] Name and Contact information: Ike Acuna P: [phone] Adult Child(jj), List All Adult Children: Yes Name and Contact information: Donnell Acuna P: [phone]; Nathen Acuna P: [phone] Would you like to add additional adult [...] for Advance Care Planning? : Patient Agreeable (GOLF BALL MOLDER to follow for HCPOA completion when Patient is more alert and oriented) Medication Management Does the patient have prescription insurance coverage? : Yes Is the patient on Anticoagulation? : Yes (Per chart review, Patient is on anticoagulation but has not been taking it (does not recall the last time she took a dose)) Provider or Clinic that manages Anticoagulation?: (unspecified at this time) [facility] [address] [place] [id number] [phone] [address] Living Environment and Support System Is the patient from a facility or intermediate?: No Living Environment: House ("1 bedroom ranch") Patient Caregiving Responsibilities: Self Patient-identified caregiver/support network: Family, Friends, Neighbors, [employer] Who does the patient identify as a [...] themselves at home? : Unable to assess Tester Electronic Scale Does the patient or solar sales representative and assessor express financial concerns? : No Chela Snyder Social Work Student Available by Secure Chat Cosigned by OWEN Keller at 08/03/2024 11:20 AM EDT * Balbir Mccoy, 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 - 08/03/2024 7:40 AM EDT NEUROCRITICAL CARE [...] Visual richards intact to confrontation. PERRL. 3mm honing machine operator production III, IV and : EOMI. No nystagmus. [...] SpO2 >92%; wean FiO2 as tolerated - [id number], encourage pulmonary toileting Cards: Essential HTN HLD [...] - Bowel regimen: - Last Bowel Movement: (HEEL SPRAYER FIRST) - Senna, miralax Stress ulcer prophylaxis: - none Dysphagia - DHT placed - BOOKKEEPING TEACHER following - Tube feed: Vital AF with [...] prophylaxis - rationale: post thrombectomy [x] Lines [place]: n/a Marina: inserted 08/02, (indication: strict I&O) [...] the assigned neurocritical care provider (resident, fellow, BANK CREDIT CARD COLLECTION CLERK, orPA) or page/call the corresponding number below NCC1 (Beds 3028-0270): [place] # [phone], pager #[phone] NCC2 (Beds 8107-6339, 12 Nando, and overflow): [place] #: [phone], pager #[phone] * Nando Caceres MD - 08/03/2024 6:00 [...] nccu Neurosurgery signing off Please page NS2 ([email or web address]) with questions Complexity. Hypocalcemia - Continue to [...] any questions, Name: Andreas Ga RPH Phone: [phone] Date/Time: 08/02/2024 10:57 PM * Richard Mejia MD - 08/02/2024 6:01 PM EDT I have independently seen and examined the patient on 08/02/24. I agree with the history, examination, assessment and plan as documented by the BANK CREDIT CARD COLLECTION CLERK with my changes/additions added. Patient is a [...] to determine stroke burden - Statin - PT/OT/BOOKKEEPING TEACHER evaluation Pulmonary: No acute issues, appears to [...] stage 3a - Maintain euvolemia GI/Nutrition: - BOOKKEEPING TEACHER evaluation - Bowel regimen to prevent constipation [...] and other supportive care as per the BANK CREDIT CARD COLLECTION CLERK note from the same day This patient [...] Care Attending [facility]* Niru Koch MD - [...] today. Consent obtained by at bedside. - BOOKKEEPING TEACHER eval: none - RD eval: none PAST [...] dependence ASSESSMENT/RECOMMENDATIONS: - primary team feels that assistant terminal manager enteric nutrition is warranted in s/o CVA. Patient is appropriate for endoscopic PEG placement. Consent obtained from at bedside. - we will tentatively plan for EGD for PEG placement 08/09 as add on case. See pre procedure recommendations below. For PEG: - Ancef ordered (1 gm if patient is <80 kg; 2 gm if patient is >80 kg) as "investigation manager to the procedure"). - Please make [...] Hepatology, and Nutrition Clinical Fellow PGY-4 Pager: [phone] For urgent/stat calls 5pm to 7am or all day on the weekend, please page the on- call GI fellow on WebExchange. IM Consult Serv [facility] --> [facility] STAT/NEW GI consults For follow up questions regarding this patient, contact the IBD consults fellow or DAHLIA on WebSanovaschange. IM Consult Serv [facility]N --> [facility] [...] and medical decisions as outlined. Need for assistant terminal manager non-oral enteric nutrition per primary team. We will facilitate this with planned PEG tube placement. Before placement, non-GI management of TF should be established to avoid delays. David Woods M.D. 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 Prema Ramos M.D. Drain Tile Press Operator Department of Neurosurgery [facility] * Taran Zamudio León, 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 - 08/02/2024 2:44 PM EDT Neurovascular Evaluation [...] speech and L hemiplegia. She presented to [facility] and was seen on Telestroke, [...] Scales Flowsheet Row Most Recent Value Modified [place] Scale Score Premorbid (MRSS) 0 filed on [...] solution Intravenous Continuous PRN Bebo Barboza APRN- INSTRUCTOR WEAVING New Bag at 08/02/24 1507 Scheduled Meds: [...] protrudes midline Motor: L hemiplegia Reflexes: Coordination: [id number] intact on the R, unable to test [...] telemetry -PT, OT, Speech and manager social services consults Other problems: Complexity. Any [...] speech and L hemiplegia. She presented to [facility] and was seen on Telestroke, [...] Kasper MD [facility] note* Tanja Hunter, BOOKKEEPING TEACHER - 08/06/2024 9:32 AM EDTAssociated Order(s): SPEECH [...] the below outcome measures/assessment score(s), MBS, and BOOKKEEPING TEACHER clinical judgment, discharge destination recommendation is: IP Rehab Facility. Patient demonstrates good candidacy for discharge to: IRF. Additional supporting factors include: Impaired swallow functionlimiting nutritional status and safety with oral intake. Acute BOOKKEEPING TEACHER Outcomes Tracking Communicate basic wants and needs?: [...] speech and L hemiplegia. She presented to [facility] and was seen on Telestroke, [...] Thin Barium: teaspoon x2, straw x2 Varibar [place] Barium: straw x1 Varibar Thin Honey Barium: [...] recommend NPO and nonoral meds. Ongoing skilled BOOKKEEPING TEACHER services indicated to address deficits and maximize [...] Therapeutic Interventions Met: yes, treatment indicated Acute BOOKKEEPING TEACHER Goals Plan of Care by Tanja Hunter, BOOKKEEPING TEACHER at 08/06/2024 9:33 AM Version 1 of 1 Problem: Dysphagia Goal: MBS - Patient will participate in Modified Barium Swallow (MBS) Study to objectively assess oropharyngeal swallow function to most appropriately guide BOOKKEEPING TEACHER plan of care Outcome: Met Goal: Bolus [...] Treatment Time (skilled, billable minutes): 20 minutes BOOKKEEPING TEACHER Evaluation and Treatment Time MBS/Motion Fluoroscopic Swallowing Eval 19135: 20 Speech Language Pathologist: RIKI Gonzales Time [...] end of session: none altered (RN present) BOOKKEEPING TEACHER Evaluation and Treatment Time MBS/Motion Fluoroscopic Swallowing Eval 27102: 20 Upon discontinuation of Acute Care Speech Therapy Services or patient discharge from the hospital this note represents the current Speech Therapy Discharge Summary [facility] in this [facility]OS[facility] Discharge instructions* Discharge Instructions* Jhoana Casarez APRN-TOURIST INFORMATION OFFICER - 08/06/2024 8:38 AM EDT Please take [...] you at all times. Stroke Education: visit [email or web address] What are the most common symptoms of [...] all ordered medications [x] Avoid non-prescription or [id number]-[id number] medication not cleared by your physician [x] [...] may call the neurovascular doctors office at [phone], if you have questions Mon-Fri between 8:30 am and 4:30 pm. - For off hours or the weekend you may call the office or the hospital solvent process extractor operator at and ask for the stroke resident investigation manager to be paged. - If you have any other questions or needs, please call Aniyah DOSS, RN, Stroke Nurse Navigator at [phone] Mon-Fri between 7:00am and 3:00pm. - Additional assistance may be found by reaching out to our Case Management Office at [phone]. *In the event of an Emergency: If you have a physical or psychiatric emergency call 911 or go to your local emergency department. You should also call your outpatient provider's emergency number. Other reference numbers: [facility] Intake Office at [phone]; [facility] at [phone]; or Suicide Prevention Hotline at 567-543-2120. *Helpful phone numbers: Free Crisis Hotline: 1-138-081-TALK ( ) Suicide Hotline: 588.785.4208 Seniors Suicide Hotline: 863.132.5041 [facility] Youth: [phone] Mental Health of [place]: [phone] (free counseling) [employer] Access Hotline: 376-574-PYRM (645-183-5782) 24-hour crisis text hotline: Text the word "4hope" to 156-720 for crisis support. Texting this number is [...] Medicaid Applications over the phone. Please call 1-154-318[facility] (9036) and apply over the phone or apply online at www.benefits.[place].gov. Monday-Monday 8am-12pm noon. Medication Assistance Programs [employer] members can buy 100+ common prescriptions for FREE, $3 or $6. Annual membership is $36 for individuals and $72 for families (up to 6 people, including pets). Sign up online or enroll at your nearest pharmacy! Short Fuze, web site can provide a significant number of coupons for medications at a much lower raymundo. [place] Department of Aging The Department of Aging administers programs and services to meet the needs of older [place]. Services and resources offered per [facility] may include transportation, housekeeping, meals and nutrition, personal care, case management, safety monitoring, home medical equipment, legal services, financial sales manager, health and wellness, education, caregiver support, respite care, etc. Call to be connected to the [facility] on aging serving your community or visit aging.[place].gov/find-services. Request a consultation with a community resource expert at ltssi.age.[place].gov/ [facility] Stroke Support The [facility] Stroke Support Group is for stroke survivors, friends, and family members. Meets on the Monday of each month from 6:30pm-7:30pm at [facility] ([address]; [place] [address]). Contact Chela Nolan, at [phone] or [email or web address]. If you are outside of the [employer] area, contact The [place] [employer] at www.stroke.org or 3-532-1-STROKE or for support groups in your area. You may also refer to the Your Care after a Stroke education booklet at go.[facility]/rplp4879 for additional resources. * Medications* PATRIZIA Miner - 08/06/2024 8:38 AM EDT Know your medicines Make sure you know why you are taking each medicine. Make a master list of all your medicines. Write down the medicine names and doctors' names. Includedoses and side effects too. And write down why you take each medicine. Include all prescription gcjllrn-tko-hkqubtq medicines, vitamins, and supplements. Keep this list [...] your refills so that you can pickle cutter all your medicines at the same time. [...] changed every 6 months. documented in this encounter[facility] [place] History and physical note* Balbir Hwang Nadine, 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 - 08/02/2024 6:00 PM EDT NEUROCRITICAL CARE [...] Visual richards intact to confrontation. PERRL. 3mm honing machine operator production III, IV and : EOMI. No nystagmus. [...] SpO2 >92%; wean FiO2 as tolerated - [id number], encourage pulmonary toileting Cards: Essential HTN HLD [...] prophylaxis - rationale: post thrombectomy [x] Lines [place]: n/a Marina: n/a Rectal tube: n/a Enteral [...] the assigned neurocritical care provider (resident, fellow, BANK CREDIT CARD COLLECTION CLERK, orPA) or page/call the corresponding number below NCC1 (Beds 6997-5802): Pernell # [phone], pager #[phone] NCC2 (Beds 9773-3183, [address], and overflow): Pernell #: [phone], pager #[phone] Cosigned by Richard Mejia MD at 08/02/2024 11:14 PM EDT [facility] Nurse Note* Rachell Ruffin RN - 08/02/2024 3:13 PM EDT 9 cc air instilled in right radial TR band @ 1520. Glasses placed in bag wit label. Sent to PACU with patient on cart. documented in this encounterOS[facility] Discharge summary [facility] Medical Records Department [address] [place] [address] Emergency Department Summary 08/02/24 MR#: [id number] Acct: [id number] Name: LINDSAY ACUNA Rep #:[id number] : [...] the EMR. states they returned home from [facility] about 1.5-2 weeks ago, and they both had colds. He is better, but she is "on round 2." [facility] Medical History Paroxysmal atrial fibrillation with [...] 71.4 H Lymph % (Auto) 17.9 L Boone % (Auto) 8.9 Eos % (Auto) 1.0 [...] on 08/02/2024 at 1250 hours. Reading Location: [facility] Head/Neck CTA 08/02/24 12:24 IMPRESSION: RIGHT CAROTID: Mild degree of calcific plaque at the origin of the right internal carotid artery. LEFT CAROTID: Mild degree of calcific plaque at the origin of the left internal carotid artery. VERTEBRALS: Dominant left vertebral artery INTRACRANIAL: Unremarkable Other impression: No significant stenosis seen. Reading Location: [place] [address] Rhythm Strip Rhythm Strip: A-fib Rate: 90 Ectopy: None EKG Initial EKG: Attestation: I personally reviewed and interpreted this EKG as follows: Interpretation: No Acute Injury Pattern, Atrial Fibrillation and Non-Specific ST Changes Management Discussion w/another healthcare provider: Fare Collector ([facility] stroke neurology) and Radiologist Stroke Documentation [...] min), Including time spent:, Discussing w/Patient &/or Family/Rod Hanger, Discussing w/Consultants, Arranging Admission or Transfer and [...] MD [Primary Care Provider] - Print Language: Mauritian Disposition Disposition: Acute Care Hospital [facility] What to do if you have Problems For any increased pain, shortness of breath, bleeding, nausea or vomiting, chestpain, or any unexpected problems, contact your Primary Care Provider. Call [facility] ([phone]) or report tothe closest Emergency Room. Call 911 if necessary. 08/02/24 1316 Cosigner Signature (if applicable): CC: Dr. Kameron Caruso MD ~ Signed [facility]03-21-2025 Radiology Diagnostic study note [facility] Imaging Services [address] [place] [address] STROKE CTA Head AND Neck W/Con MR#: [id number] Acct: [id number] Name: LINDSAY ACUNA Rep #: [id number] : 1945 F 78 From: Regulo Hargrove MD PCP: Dr. Kameron Caruso MD Status: RE G ER Study:STROKE CTA Head AND Neck W/Con Date of Exam: 08/02/24 Exam# [id number] Ordering Dr: Roby Morgan MD PROCEDURE: STROKE [...] impression: No significant stenosis seen. Reading Location: [place] [address] CC: Dr. Pieter Morgan MD; Dr. Kameron Caruso MD ~ Shirt Creaser: Signed [facility]03-21-2025 Radiology Diagnostic study note [facility] Imaging Services [address] [place] [id number] STROKE Brain/Head without Cont MR#: [id number] Acct: [id number] Name: LINDSAY ACUNA Rep #: [id number] : 1945 F 78 From: Shira Cardoso MD PCP: Dr. Kameron Caruso MD Status: RE G ER Study:STROKE Brain/Head without Cont Date of Exam: 08/02/24 Exam# [id number] Ordering Dr: Roby Morgan MD EXAM: CT [...] on 08/02/2024 at 1250 hours. Reading Location: [facility] CC: Dr. Pieter Morgan MD; Dr. Kameron Caruso MD ~ Shirt Creaser: Signed [facility]02-19-2025 Telephone encounter Note* Telephone Encounter - Mj Glover APRN.CNP - 07/03/2024 12:28 PM EST The following approved medication requests have been transmitted electronically. Requested Prescriptions Signed Prescriptions Disp Refills doxycycline monohydrate (MONODOX) 100 mg capsule 56 capsule 0 Sig: Take 1 capsule by mouth two times a day for 28 days. Authorizing Provider: MJ GLOVER APRN.CNP [facility]02-19-2025 Miscellaneous Notes* Telephone Encounter - Mj [...] calling: self Call patient at: on cell [phone] (home) [phone] (cell) Was an appointment scheduled: No Closing statement: Results or non-symptom based questions: Thank you for calling [facility], your call will be returned within the next business day. Katrina Coombs documented in this encounterProvidence Hospital02-19-2025 Telephone encounter Note * Telephone Encounter [...] calling: self Call patient at: on cell [phone] (home) [phone] (cell) Was an appointment scheduled: No Closing statement: Results or non-symptom based questions: Thank you for calling [facility], your call will be returned within the next business day. Katrina Coombs [facility]02-18-2025 Telephone encounter Note* Telephone Encounter - Katia Álvarez RN - 07/02/2024 11:57 AM EST Patient calls and is requesting Cardiology referral to be faxed to [facility]. Faxed referral as requested. Katia Álvarez RN [facility]02-18-2025 Miscellaneous Notes* Telephone Encounter - Katia Álvarez RN - 07/02/2024 11:57 AM EST Patient calls and is requesting Cardiology referral to be faxed to [facility]. Faxed referral as requested. Katia Álvarez RN documented in this encounterProvidence Hospital02-17-2025 Telephone encounter Note * Telephone Encounter - Bret Arambula LPN - 07/01/2024 12:39 PM EST Patient notified of Rx, verbalizes understanding of instructions. Bret Arambula LPN [facility]02-17-2025 Miscellaneous Notes* Telephone Encounter - Bret [...] calling: self Call patient at: on cell [phone] (home) [phone] (cell) Was an appointment scheduled: Leslie Swanson documented in this encounterProvidence Hospital02-17-2025 Telephone encounter Note *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 min), Including time spent:, Discussing w/Patient &/or Family/Rod Hanger, Discussing w/Consultants, Arranging Admission or Transfer and [...] MD [Primary Care Provider] - Print Language: Mauritian Disposition Disposition: Acute Care Hospital Discharge Location: [facility] What to do if you have Problems For any increased pain, shortness of breath, bleeding, nausea or vomiting, chestpain, or any unexpected problems, contact your Primary Care Provider. Call [facility] ([phone]) or report to the closest Emergency Room. Call 911 if necessary. 08/02/24 1316 <Electronically signed by Pieter Morgan MD> Cosigner Signature (if applicable): CC: Dr. Kameron Caruso MD ~ Signed [facility] Work Phone: Evaluation note* Diagnosis Need for vaccination- Primary Need for prophylactic vaccination and inoculation against unspecified single disease documented in this encounter [facility] note* Diagnosis Type 2 diabetes mellitus with diabetic chronic kidney disease, unspecified CKD stage, 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 insulin use (HCC)- Primary Essential hypertension, benign Hyperlipidemia, unspecified hyperlipidemia type Stage 3b chronic kidney disease (HCC) Hypothyroidism, unspecified type Memory loss [facility]* Diagnosis Type 2 diabetes mellitus with diabetic chronic kidney disease, unspecified CKD stage, unspecified whether longterm insulin use (HCC)- Primary documented in this encounter [facility] note* Diagnosis Hyperlipidemia, unspecified hyperlipidemia type Essential hypertension, benign Type 2 diabetes mellitus with diabetic chronic kidney disease, unspecified CKD stage, 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 insulin use (HCC) documented in this encounter [facility] note* Diagnosis Type 2 diabetes mellitus with diabetic chronic kidney disease, unspecified CKD stage, 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 insulin use (HCC) Essential hypertension, benign Hyperlipidemia, unspecified hyperlipidemia type documented in this encounter [facility] note* Diagnosis Acute midline low back pain without sciatica- Primary documented in this encounter [facility] note* Diagnosis Type 2 diabetes mellitus with diabetic chronic kidney disease, unspecified CKD stage, unspecified whether longterm insulin use (HCC)- Primary documented in this encounter [facility] note* Diagnosis Essential hypertension, benign- Primary Hypothyroidism, unspecified type Type 2 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, without long-term current use of insulin (HCC) Hyperlipidemia, unspecified hyperlipidemia type Chronic kidney disease, stage 3a (HCC) Edema of left lower leg Wellness examination documented in this encounter [facility] note* Diagnosis Type 2 diabetes mellitus with diabetic chronic kidney disease, unspecified CKD stage, unspecified whether longterm insulin use (HCC) documented in this encounter [facility] note* Diagnosis Allergic contact dermatitis due to plant- Primary Contact dermatitis and other eczema due to plants (except food) documented in this encounter [facility] note* Diagnosis Rash- Primary Rash and other nonspecific skin eruption documented in this encounter [facility] note* Diagnosis Type 2 diabetes mellitus with diabetic chronic kidney disease, unspecified CKD stage, 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 insulin use (HCC)- Primary Essential hypertension, benign Chronic kidney disease, stage 3a (HCC) Hyperlipidemia, unspecified hyperlipidemia type Hypothyroidism, unspecified type Edema of left lower leg Memory loss documented in this encounter [facility] note* Diagnosis Essential hypertension, benign- Primary Type 2 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, without long-term current use of insulin (HCC) Chronic kidney disease, stage 3a (HCC) Hyperlipidemia, unspecified hyperlipidemia type Hypothyroidism, unspecified type Edema of left lower leg Memory loss Urinary incontinence, unspecified type Irregular heart beat Cardiac dysrhythmia, unspecified Atrial fibrillation, unspecified type (HCC) documented in this encounter [facility] note* Diagnosis Atrial fibrillation, unspecified type (HCC)- Primary Hypothyroidism, unspecified type Need for malaria prophylaxis [facility]* Diagnosis History of traveler's diarrhea- Primary Personal history of other diseases of digestive system documented in this encounter [facility] note* Diagnosis History of traveler's diarrhea Personal history of other diseases of digestive system documented in this encounter [facility] noteNo assessment information availableWMercy Health St[facility] Work Phone: Evaluation note* Diagnosis Acute ischemic right MCA stroke- Primary Unspecified cerebral artery occlusion with cerebral infarction Cerebrovascular accident (CVA), unspecified mechanism Renal disease (High Serum Creatinine) Unspecified disorder of kidney and ureter Type 2 diabetes mellitus with hyperglycemia Type II or unspecified type diabetes mellitus without mention of complication, not stated as uncontrolled [facility] Narrative No data available for this section [place] Reason for referral (narrative)* Outpatient Procedure (Routine) - Pending Review Specialty Diagnoses / Procedures Referred By Contteofilo t Ref[facility] Diagnoses Atrial fibrillation, unspecified type (HCC) Procedures ECHO ECHO TTHRC R-T 2D W/WOM-MODE COMPL SPEC&COLR D Kameron Caruso MD [address] [place] [address] [facility] [address] [place] [address] Referral ID Status Reason Start Date Expiration Date Visits Requested Visits Authorized [id number] Pending Review Auto-Generat ed Referral 05/31/2024 05/31/2025 1 1 * Outpatient Procedure (Routine) - New Request Specialty Diagnoses / Procedures Referred By Contteofilo t Referred To Contact [facility] Diagnoses Irregular heart beat Procedures ECG COMPLETE ECG ROUTINE ECG W/LEAST 12 LDS W/I&R Kameron Caruso MD [address] [place] [address] [facility] [address] [place] [address] Referral ID Status Reason Start Date Expiration Date Visits Requested Visits Authorized [id number] New Request Auto-Generat ed Referral 05/31/2024 05/31/2025 1 1 [facility] for referral (narrative)No reason for referral information availableWMercy Health St[facility] Work Phone: Reason for visit Narrative* Auth/Cert Specialty Diagnoses / Procedures Referred By Contac t Referred To Contact Diagnoses Acute ischemic right MCA stroke Cerebrovascular Accident (Level A Ishemic Stroke) Prema Rodgers MD [address] [place] [address] Phone: tel: fax: [facility] [address] [place] [address] Referral ID Status Reason Start Date Expiration Date Visits Re quested Visits Authorized [id number] 1 1 [facility] Summary Purpose Family History No Family History Records Found Relationship Condition Age at Onset Recorded Date/T monse mother Diabetes mellitus Unknown Hypertension Unknown Psychiatric disorder Unknown grandmother Malignant neoplasm Unknown sister Disorder of thyroid Unknown Advance Directives No Advanced Directives Records FoundDocuments on File Type Date Recorded Patient Molder Sweep 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 Advance Directives and Living Will Power of Monitor Car Operator Latest Code Status on File Code Status Date Activated Date Inactivated Comments Full Code 01/09/2019 10:16 AM Latest Code Status on File Code Status Date Activated Date Inactivated Comments Full Code 10/16/2019 9:16 AM Full Code 01/09/2019 10:16 AM 01/09/2019 2:23 PM Documents on File Type Date Recorded Patient Molder Sweep 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 Advance Directive(s) 11/07/2018 6:45 AM Advance Directive(s) 09/29/2015 10:09 PM Advance Directive Response Recorded Date/ Time Living Will No August 02, 2024 12:46pm Do you have a Healthcare Power of Monitor Car Operator? No August 02, 2024 12:46pm Date [...] patient had a polyp identified by on {time:30364}. Biopsies {are/were w not:9034} taken. The patient's usual bowel pattern is {bowel pattern:26341}. Bowel movements {bowel changes:58860} . {abd pain:11729}. The patient has noted{bleeding with BM:69295}. The patient {does/do/not:46276} have a family history of colon polyps. The patient {does/do/not:05157} have a family history of colon cancer. [...] WORK September 10, 2024 5:0 0am AFIB ([facility]) October 02, 2024 9:29a m Chief [...] WORK October 01, 2024 5:00a m [facility]IB ([facility]) October 02, 2024 9:29a m LAB [...] WORK October 01, 2024 5:00a m [facility]IB ([facility]) October 02, 2024 9:29a m LAB [...] WORK October 01, 2024 5:00a [facility] October 02, 2024 9:29a m LAB [...] WORK October 01, 2024 5:00a m [facility] ([facility]) October 02, 2024 9:29a m LAB [...] WORK October 01, 2024 5:00a m [facility] ([facility]) October 02, 2024 9:29a m LAB [...] section and content) DATE CREATED AUTHOR 08/31/2018 [facility] ([place]) DATE CREATED AUTHOR AUTHOR'S ORGANIZ ATION 10/18/2019 [facility] DATE CREATED AUTHOR AUTHOR'S ORGANIZ ATION 08/04/2024 [facility] DATE CREATED AUTHOR AUTHOR'S ORGANIZ ATION 08/07/2024 [facility] DATE CREATED AUTHOR AUTHOR'S ORGANIZ ATION 09/01/2024 [facility] DATE CREATED AUTHOR AUTHOR'S ORGANIZ ATION 11/08/2024 [facility] DATE CREATED AUTHOR AUTHOR'S ORGANIZ ATION 02/17/2025 [facility] DATE CREATED AUTHOR AUTHOR'S ORGANIZ ATION 03/26/2025 [facility] Source Comments (unrecognize d section and content) In the event this informatio n is protected by the Federal Confidentiality of Alcohol and Drug Abuse Patient Records regulations: The Federal rules restrict any use of the information to criminally investigate or prosecute any alcohol or drug abuse patient.[facility] HospitalIn the event this information is protected by the Federal Confidentiality of Alcohol and Drug Abuse Patient Records regulations: The Federal rules restrict any use of the information to criminally investigate or prosecute any alcohol or drug abuse patient.Prov[facility] HospitalIn the event this information is protected by the Federal Confidentiality of Alcohol and Drug Abuse Patient Records regulations: The Federal rules restrict any use of the information to criminally investigate or prosecute any alcohol or drug abuse patient.Prov[facility] HospitalIn the event this information is protected by the Federal Confidentiality of Alcohol and Drug Abuse Patient Records regulations: The Federal rules restrict any use of the information to criminally investigate or prosecute any alcohol or drug abuse patient.[facility] HospitalIn the event this information is protected by the Federal Confidentiality of Alcohol and Drug Abuse Patient Records regulations: The Federal rules restrict any use of the information to criminally investigate or prosecute any alcohol or drug abuse patient.Prov[facility] HospitalIn the event this information is protected by the Federal Confidentiality of Alcohol and Drug Abuse Patient Records regulations: The Federal rules restrict any use of the information to criminally investigate or prosecute any alcohol or drug abuse patient.Prov[facility] HospitalIn the event this information is protected by the Federal Confidentiality of Alcohol and Drug Abuse Patient Records regulations: The Federal rules restrict any use of the information to criminally investigate or prosecute any alcohol or drug abuse patient.Providence HospitalIn the event this information is protected by the Federal Confidentiality of Alcohol and Drug Abuse Patient Records regulations: The Federal rules restrict any use of the information to criminally investigate or prosecute any alcohol or drug abuse patient.Prov[facility] HospitalIn the event this information is protected by the Federal Confidentiality of Alcohol and Drug Abuse Patient Records regulations: The Federal rules restrict any use of the information to criminally investigate or prosecute any alcohol or drug abuse patient.Prov[facility] HospitalIn the event this information is protected by the Federal Confidentiality of Alcohol and Drug Abuse Patient Records regulations: The Federal rules restrict any use of the information to criminally investigate or prosecute any alcohol or drug abuse patient.Prov[facility] HospitalIn the event this information is protected by the Federal Confidentiality of Alcohol and Drug Abuse Patient Records regulations: The Federal rules restrict any use of the information to criminally investigate or prosecute any alcohol or drug abuse patient.[facility]idence HospitalIn the event this information is protected by the Federal Confidentiality of Alcohol and Drug Abuse Patient Records regulations: The Federal rules restrict any use of the information to criminally investigate or prosecute any alcohol or drug abuse patient.[facility] HospitalIn the event this information is protected by the Federal Confidentiality of Alcohol and Drug Abuse Patient Records regulations: The Federal rules restrict any use of the information to criminally investigate or prosecute any alcohol or drug abuse patient.[facility] HospitalIn the event this information is protected by the Federal Confidentiality of Alcohol and Drug Abuse Patient Records regulations: The Federal rules restrict any use of the information to criminally investigate or prosecute any alcohol or drug abuse patient.[facility] HospitalIn the event this information is protected by the Federal Confidentiality of Alcohol and Drug Abuse Patient Records regulations: The Federal rules restrict any use of the information to criminally investigate or prosecute any alcohol or drug abuse patient.[facility] HospitalIn the event this information is protected by the Federal Confidentiality of Alcohol and Drug Abuse Patient Records regulations: The Federal rules restrict any use of the information to criminally investigate or prosecute any alcohol or drug abuse patient.[facility] HospitalIn the event this information is protected by the Federal Confidentiality of Alcohol and Drug Abuse Patient Records regulations: The Federal rules restrict any use of the information to criminally investigate or prosecute any alcohol or drug abuse patient.[facility] HospitalIn the event this information is protected by the Federal Confidentiality of Alcohol and Drug Abuse Patient Records regulations: The Federal rules restrict any use of the information to criminally investigate or prosecute any alcohol or drug abuse patient.[facility] HospitalIn the event this information is protected by the Federal Confidentiality of Alcohol and Drug Abuse Patient Records regulations: The Federal rules restrict any use of the information to criminally investigate or prosecute any alcohol or drug abuse patient.[facility] HospitalIn the event this information is protected by the Federal Confidentiality of Alcohol and Drug Abuse Patient Records regulations: The Federal rules restrict any use of the information to criminally investigate or prosecute any alcohol or drug abuse patient.[facility] HospitalIn the event this information is protected by the Federal Confidentiality of Alcohol and Drug Abuse Patient Records regulations: The Federal rules restrict any use of the information to criminally investigate or prosecute any alcohol or drug abuse patient.[facility] HospitalIn the event this information is protected by the Federal Confidentiality of Alcohol and Drug Abuse Patient Records regulations: The Federal rules restrict any use of the information to criminally investigate or prosecute any alcohol or drug abuse patient.[facility] HospitalIn the event this information is protected by the Federal Confidentiality of Alcohol and Drug Abuse Patient Records regulations: The Federal rules restrict any use of the information to criminally investigate or prosecute any alcohol or drug abuse patient.[facility] HospitalIn the event this information is protected by the Federal Confidentiality of Alcohol and Drug Abuse Patient Records regulations: The Federal rules restrict any use of the information to criminally investigate or prosecute any alcohol or drug abuse patient.[facility] HospitalIn the event this information is protected by the Federal Confidentiality of Alcohol and Drug Abuse Patient Records regulations: The Federal rules restrict any use of the information to criminally investigate or prosecute any alcohol or drug abuse patient.[facility] HospitalIn the event this information is protected by the Federal Confidentiality of Alcohol and Drug Abuse Patient Records regulations: The Federal rules restrict any use of the information to criminally investigate or prosecute any alcohol or drug abuse patient.[facility] HospitalIn the event this information is protected by the Federal Confidentiality of Alcohol and Drug Abuse Patient Records regulations: The Federal rules restrict any use of the information to criminally investigate or prosecute any alcohol or drug abuse patient.[facility] HospitalIn the event this information is protected by the Federal Confidentiality of Alcohol and Drug Abuse Patient Records regulations: The Federal rules restrict any use of the information to criminally investigate or prosecute any alcohol or drug abuse patient.[facility] Reason for Visit (unrecogniz ed section [...] Comments request for medication Reason Comments [facility] requesting verbal agree to f ollow Care Teams (unrecognized sec tion and content) Condenser Tube Tender Relationship Specialty Start Date End Date Kameron Caruso MD [address] [place] [address] PCP - General Family Practice 09/21/15 Condenser Tube Tender Relationship Specialty Start Date End Date Kameron Caruso MD [address] [facility] [address] PCP - General Family Practice 09/21/15 Condenser Tube Tender Relationship Specialty Start Date End Date Kameron Caruso MD [address] [facility] [address] PCP - General Family Practice 09/21/15 Condenser Tube Tender Relationship Specialty Start Date End Date Kameron Caruso MD [address] [facility] [address] PCP - General Family Practice 09/21/15 Condenser Tube Tender Relationship Specialty Start Date End Date Kameron Caruso MD [address] [facility] [place] [address] PCP - General Family Practice 09/21/15 Condenser Tube Tender Relationship Specialty Start Date End Date Kameron Caruso MD [address] [facility] [place] [address] PCP - General Family Practice 09/21/15 Condenser Tube Tender Relationship Specialty Start Date End Date Kameron aCruso MD [address] [facility] [place] [address] PCP - General Family Medicine 09/21/15 Condenser Tube Tender Relationship Specialty Start Date End Date Kameron Caruso MD [address] [facility] [place] [address] PCP - General Family Medicine 09/21/15 Condenser Tube Tender Relationship Specialty Start Date End Date Kameron Caruso MD [address] [facility] [place] [address] PCP - General Family Medicine 09/21/15 Condenser Tube Tender Relationship Specialty Start Date End Date Kameron Caruso MD [address] [facility] [place] [address] PCP - General Family Medicine 09/21/15 Condenser Tube Tender Relationship Specialty Start Date End Date Kameron Caruso MD [address] [facility] [place] [address] PCP - General Family Medicine 09/21/15 Condenser Tube Tender Relationship Specialty Start Date End Date Kameron Caruso MD [address] [facility] [place] [address] PCP - General Family Medicine 09/21/15 Condenser Tube Tender Relationship Specialty Start Date End Date Kameron Caruso MD [address] [facility] [place] [address] PCP - General Family Medicine 09/21/15 Condenser Tube Tender Relationship Specialty Start Date End Date Kameron Caruso MD [address] [facility] [place] [address] PCP - General Family Medicine 09/21/15 Condenser Tube Tender Relationship Specialty Start Date End Date Kameron Caruso MD [address] [facility] [place] [address] PCP - General Family Medicine 09/21/15 Condenser Tube Tender Relationship Specialty Start Date End Date Kameron Caruso MD [address] [facility] [place] [address] PCP - General Family Medicine 09/21/15 Emma Glasgow APRN.CNP [address] [facility] [place] [address] Auto Overhauler Family Medicine 04/21/24 Mj Glover APRN.TOURIST INFORMATION OFFICER [address] [facility] [place] [address] Auto Overhauler Family Medicine 04/30/24 Condenser Tube Tender Relationship Specialty Start Date End Date Kameron Caruso MD [address] [facility] [place] [address] PCP - General Family Medicine 09/21/15 Emma Glasgow APRN.TOURIST INFORMATION OFFICER [address] [facility] [place] [address] Auto Overhauler Family Medicine 04/21/24 Mj Glover APRN.TOURIST INFORMATION OFFICER [address] [facility] [place] [address] Auto Overhauler Family Medicine 04/30/24 Condenser Tube Tender Relationship Specialty Start Date End Date Kameron Caruso MD [address] [facility] [place] [address] PCP - General Family Medicine 09/21/15 Emma Glasgow APRN.TOURIST INFORMATION OFFICER [address] [facility] [place] [address] Auto Overhauler Family Medicine 04/21/24 Mj Glover RAC SPECIALIST.TOURIST INFORMATION OFFICER [address] [facility] [place] [address] Auto Overhauler Family Medicine 04/30/24 Condenser Tube Tender Relationship Specialty Start Date End Date Kameron Caruso MD [address] [facility] [place] [address] PCP - General Family Medicine 09/21/15 Emma Glasgow APRN.TOURIST INFORMATION OFFICER [address] [facility] [place] [address] Auto Overhauler Family Medicine 04/21/24 Mj Glover APRN.TOURIST INFORMATION OFFICER [address] [place] [address] Auto Overhauler Family Medicine 04/30/24 Condenser Tube Tender Relationship Specialty Start Date End Date Kameron Caruso MD [address] [place] [address] PCP - General Family Medicine 09/21/15 Emma Glasgow APRN.TOURIST INFORMATION OFFICER [address] [place] [address] Auto Overhauler Family Medicine 04/21/24 Mj Glover APRN.TOURIST INFORMATION OFFICER [address] [place] [address] Auto Overhauler Family Medicine 04/30/24 Condenser Tube Tender Relationship Specialty Start Date End Date Kameron Caruso MD [address] [place] [address] PCP - General Family Medicine 09/21/15 Emma Glasgow APRN.TOURIST INFORMATION OFFICER [address] [place] [address] Auto Overhauler Family Medicine 04/21/24 Mj Glover APRN.TOURIST INFORMATION OFFICER [address] [place] [address] Auto Overhauler Family Medicine 04/30/24 Condenser Tube Tender Relationship Specialty Start Date End Date Kameron Caruso MD [address] [place] [address] PCP - General Family Medicine 09/21/15 Emma Glasgow APRN.TOURIST INFORMATION OFFICER [address] [facility] [place] [address] Auto Overhauler Family Medicine 04/21/24 Mj Glover APRN.TOURIST INFORMATION OFFICER [address] [place] [address] Auto Overhauler Family Medicine 04/30/24 Team Status: Active Member Role Status Dates Dr. Kameron Caruso MD Primary Care Provider Active Team Status: Inactive Member Role Status Dates Dr. Kameron Caruso MD Primary Care Provider Active Start: August 02, 2024 End: August 02, 2024 Dr. Pieter Morgan MD Emergency Provider Active Start: August 02, 2024 End: August 02, 2024 Condenser Tube Tender Relationship Specialty Start Date End Date Kameron Caruso MD [address] [facility] [address] PCP - General Family Medicine 08/03/24 Condenser Tube Tender Relationship Specialty Start Date End Date Kameron Caruso MD [address] [place] [address] PCP - General Family Medicine 09/21/15 Emma Glasgow APRN.TOURIST INFORMATION OFFICER [address] [place] [address] Auto Overhauler Family Medicine 04/21/24 Mj Glover APRN.TOURIST INFORMATION OFFICER [address] [place] [address] Auto Overhauler Family Medicine 04/30/24 Team Status: Inactive Member [...] End: September 11, 2024 Bret Snyder NP, BANK CREDIT CARD COLLECTION CLERK-C Attending Provider Active Start: September 11, 2024 [...] 2024 End: October 09, 2024 Bret Snyder BANK CREDIT CARD COLLECTION CLERK, BANK CREDIT CARD COLLECTION CLERK-C Attending Provider Active Start: October 09, 2024 [...] End: October 30, 2024 Bret Snyder NP BANK CREDIT CARD COLLECTION CLERK-C Attending Provider Active Start: October 30, 2024 [...] End: October 22, 2024 Bret Snyder NP BANK CREDIT CARD COLLECTION CLERK-C Attending Provider Active Start: October 22, 2024 [...] 2024 End: October 30, 2024 Bret Snyder BANK CREDIT CARD COLLECTION CLERK, BANK CREDIT CARD COLLECTION CLERK-C Attending Provider Active Start: October 30, 2024 [...] End: October 30, 2024 Bret Snyder NP BANK CREDIT CARD COLLECTION CLERK-C Attending Provider Active Start: October 30, 2024 [...] End: September 11, 2024 Bret Snyder NP, BANK CREDIT CARD COLLECTION CLERK-C Attending Provider Active Start: September 11, 2024 [...] 2024 End: October 09, 2024 Bret Snyder BANK CREDIT CARD COLLECTION CLERK, BANK CREDIT CARD COLLECTION CLERK-C Attending Provider Active Start: October 09, 2024 [...] 2024 End: October 22, 2024 Bret Snyder BANK CREDIT CARD COLLECTION CLERK, BANK CREDIT CARD COLLECTION CLERK-C Attending Provider Active Start: October 22, 2024 [...] 2024 End: November 20, 2024 Bret Snyder BANK CREDIT CARD COLLECTION CLERK, BANK CREDIT CARD COLLECTION CLERK-C Attending Provider Active Start: November 20, 2024 [...] 2024 End: November 28, 2024 Bret Snyder BANK CREDIT CARD COLLECTION CLERK, BANK CREDIT CARD COLLECTION CLERK-C Attending Provider Active Start: November 28, 2024 [...] End: October 22, 2024 Bret Snyder NP BANK CREDIT CARD COLLECTION CLERK-C Attending physician Active Start: October 22, 2024 [...] End: November 20, 2024 Bret Snyder NP BANK CREDIT CARD COLLECTION CLERK-C Attending physician Active Start: November 20, 2024 [...] End: November 28, 2024 Bret Snyder NP BANK CREDIT CARD COLLECTION CLERK-C Attending physician Active Start: November 28, 2024 [...] is greater than 200mg/dl, then notify house servant. And BLOOD GLUCOSE (POC DEVICE) (CANCELED) Routine, [...] 50% needed, contact pharmacy or obtain from [employer] [facility] ++ And glucose (GLUTOSE) 40 % [...] at 1301, Until Specified, Who to Notify: Winery Worker, For all Blood Glucose LESS THAN 80 mg/dl, notify Winery Worker after treatment per Hypoglycemia in Non- Adults [...] BE BASED ON THE PRIMARY CLINICAL RECORDS. [employer] [facility]. provides no warranty or guarantee of the accuracy or completeness of information in this document.
[2025-05-06 07:50] LABS: Hematocrit 35.4 % (37-47); Hemoglobin 11.5 g/dL (12.0-15.0); Immature Granulocytes Count 0.030 X10^3/uL (0.0-0.0); Mean Corp Hgb Conc 32.5 g/dL (32-36); Mean Corpuscular Volume 94.7 fL (81-99); Mean Platelet Vol. 11.3 fl (6.2-12.0); NRBC Flagged by Analyzer 0 % (0-5); Platelet Count 281 K/mm3 (150-450); RBC Distribution Width CV 13.4 % (11.6-14.6); RBC Distribution Width SD 45.8 fl (35.1-43.9); Red Blood Count 3.74 M/mm3 (4.2-5.4); White Blood Count 9.9 K/mm3 (4.4-11.0)
[2025-05-06 07:59] LABS: Anion Gap 13 (7-18); BUN 14 mg/dL (4-19); BUN/Creat Ratio 20.5 RATIO (10-20); Calcium,Total 9.0 mg/dL (7.6-11.0); Carbon Dioxide 22.9 mmol/L (20.0-29.0); Chloride 105 mmol/L (96-106); Glucose 101 mg/dL (70-99); Potassium 3.8 mmol/L (3.5-5.1)
== END ==
LOC: OLS.WHLTCC 04:00
PROVIDERS: PCP Family Medicine; Referring Provider Internal Medicine; Visit Provider Internal Medicine
DX: E11.9 Type 2 diabetes mellitus without complications (principal); I10 Essential (primary) hypertension; Z86.73 Personal history of transient ischemic attack (TIA), and cerebral infarction without residual deficits
CPT/HCPCS: 36415; 80048; 85025

== ENCOUNTER → 2025-05-08 17:00 | Outpatient (REF) | payer MEDICARE, SELFPAY ==
--- OUTSIDE RECORDS SUMMARY | 2025-05-09 07:50 | XMS RPT_ITS | CCD ---
Author Organization [facility] Care Team Providers Care Sewer Hand Name Role Phone KETTY DOWNS Attending Unavailable PHYSICIAN, NONE Primary Care Unavailable KETTY DOWNS Attending Unavailable PHYSICIAN, NONE Primary Care Unavailable KETTY DOWNS Admitting Unavailable RICHARD PRIEST Consulting Unavailable KETTY DOWNS Attending Unavailable PHYSICIAN, NONE Primary Care Unavailable Kameron Caruso Primary Care Provider Kameron Caruso Primary Care Provider Kameron Caruso MD Primary Care Provider Kameron Caruso MD Primary Care Provider Kameron Caurso MD Primary Care Provider Kameron Caruso MD Primary Care Provider Kameron Caruso MD Primary Care Provider Светлана BRIDGE IRONWORKER.Emma TUCKER Unavailable Saurav BRIDGE IRONWORKER.Mj TUCKER Unavailable JUVENTINO ROGERS Attending Unavailable JUVENTINO ROGERS Admitting Unavailable CATA ALFRED Attending Unavailable CATA ALFRED Admitting Unavailable Dr. Kameron Caruso MD Primary Care Provider [phone] Dr. Pieter Morgan MD Emergency Provider Kameron Caruso MD Primary Care Provider Светлана BRIDGE IRONWORKER.Emma TUCKER Unavailable Unavail able KAMERON CARUSO Referring [...] Dr. Safia Ruelas MD Attending Provider Claudio BUTTON RECLAIMER-CBret Attending Provider Safia Ruelas MD Referring Provider UnavailDr. Kameron Marquez MD Primary Care Provider Safia Ruelas MD Attending Provider UnavailDr. Safia Ulloa MD Attending Provider Claudio BUTTON RECLAIMER-C, Bret Attending Provider Safia Ruelas MD Referring Provider UnavailDr. Kameron Marquez MD Referring Provider Dr. Mj Benavides MD Attending Provider Dr. Kameron Caruso MD Primary Care Physician Safia Ruelas MD Attending Physician Unavail able Claudio BUTTON RECLAIMER-CBret Attending Physician Dr. Safia Ruelas MD Attending Physician Safia Ruelas MD Referring Provider Alexandra CARUSO MD, DR MELO Primary Care Unavailab shital PEARL DO, SILVINO Admitting Unavailable DAE DO, SILVINO Attending Unavailable BRYON LAWSON, DR REECE Consulting Unavailab shital CORRINE DO, NANDO Consulting Unavailable SUDARSHAN BRIDGE IRONWORKER-ROBOTIC MACHINE OPERATOR, AMI Hwang Consulting Unavailjair GIBSON PhD, MATTHEW Zamudio Consulting Unavailable Zuly LAWSON, Dr. Melo Primary Care Physician Safia Ruelas MD Attending Physician Unavail able Claudio CASH-CBret Attending Physician Jessenia LAWSON, Dr. Baig Attending Physician [phone] Kameron Caruso Primary Care Unavailable Oleghe OLS, [...] Unavailable Elderbrock, Kameron Primary Care Unavailable Tickton BUTTON RECLAIMER, Bret Attending Unavailable Oleghe OLS, Efewongbe Attending Unavailabl e Elderbrock, Kameron Primary Care Unavailable Elderbrock, Kameron Primary Care Unavailable Oleghe, Efewongbe Attending Unavailable Elderbrock, Kameron Primary Care Unavailable Mj Benavides Attending Unavailable Elderbrock, Kameron Referring Unavailable Elderbrock, Kameron Primary Care Unavailable Oleghe, Efewongbe Attending Unavailable Tickton BUTTON RECLAIMER, Bret Attending Unavailable Elderbrock, Kameron Primary Care Unavailable Tickton BUTTON RECLAIMER, Bret Attending Unavailable Elderbrock, Kameron Primary Care Unavailable Oleghe, Efewongbe Attending Unavailable Elderbrock, Kameron Primary Care Unavailable Tickton BUTTON RECLAIMER, Bret Attending Unavailable Elderbrock, Kameron Primary Care Unavailable Tickton BUTTON RECLAIMER, Bret Attending Unavailable Elderbrock, Kameron Primary Care Unavailable Elderbrock, Kameron Primary Care Unavailable Tickton BUTTON RECLAIMER, Bret Attending Unavailable Oleghe OLS, Efewongbe Attending [...] reactions to drug 6 Other (See Comments) [place] (2 sources) Other Propensity to adverse reactions 6 Shortness Of Breath [place] (20 sources) Benzocaine; Translations: [BENZOCAINE] Drug Allergy 6 Rash [facility] Work Phone: (20 sources) Cocaine; Translations: [COCAINE] Drug Allergy 9 Inverted T waves [facility] Work Phone: (20 sources) Sulfonamides (Antibiotic); Translations: [SULFA (SULFONAMIDE ANTIBIOTICS)] Propensity to adverse reactions 6 Intolerance [facility] Work Phone: (20 sources) Perfumes; Translations: [PERFUMES] Propensity to adverse reactions 6 Shortness of Breath [facility] Work Phone: (13 sources) Sulfonamides (Antibiotic) Allergy to substance 5 Unknown [facility] (15 sources) perfume; Translations: [perfume] Allergy to substance 5 Shortness of breath [facility] (1 source) Cocaine; Translations: [cocaine nasal] Drug Allergy [facility] (1 source) Codeine; Translations: [codeine] Drug Allergy Pharyngeal swelling (finding) [facility] (1 source) Sulfonamide; Translations: [sulfa drugs] Drug allergy [facility] (1 source) Benzocaine Drug Allergy 5 [facility] (1 source) Cocaine Drug Allergy 5 [facility] (1 source) Sulfonamides (Antibiotic) Drug allergy (disorder) 5 [facility] Medications Current Medications Medication Drug [...] stage, unspecified whether prison insulin 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 Take 1 tablet by [facility] once daily atovaquone 250 mg / [...] Comment on above: Take 1 tablet by [facility] once daily. Start medication 2 days [...] stage, unspecified whether prison insulin use (HCC) Take 1 tablet by [...] capsules by m outh once daily sennosides, fci 8.6 mg oral tablet (2 sources) Start: 08-09-2024 End: 08-15-2024 Start: 08-04-2024 End: 08-09-2024 triamcinolone acetonide 0.75681 mg/mg topical ointment (3 sources) Corticosteroid Start: [...] glucose is greater than 200mg/dl, then notify washhouse hand. [Order 2 End] [Order 3 Start] Name: [...] at 1301, Until Specified, Who to Notify: Inside Sales Manager, For all Blood Glucose LESS THAN 80 mg/dl, notify Inside Sales Manager after treatment per Hypoglycemia in Non- Adults [...] Coronary arteriosclerosis; Translations: [Atherosclerotic heart disease of morongo coronary artery without angina pectoris] Onset: 5 [...] aftercare (13 sources) 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; Translations: [oysterman (current) use of anticoagulants] 08-02-2024 Episodic Other [...] Onset: 08-15-2024 Episodic Other aftercare (1 source) oysterman (current) use of aspirin; Translations: [oysterman (current) use of aspirin] Onset: 08-15-2024 Episodic Other aftercare (1 source) oysterman (current) use of anticoagulants; Translations: [oysterman (current) use of anticoagulants] Onset: 08-15-2024 Episodic Other aftercare (1 source) oysterman (current) use of oral hypoglycemic drugs; Translations: [group home (current) use of oral hypoglycemic drugs] Onset: [...] Auto (Unsp spec) [#/Vol] 2.89 10*3/uL 0.83-4.51 [facility] Anion gap in Serum or Plasma Ordered By: Safia Ruelas on 03-04-2025 Anion gap [Moles/Vol] 12 mmol/L 5-15 [facility] Automated lymphocyte count a s percentage of total leukocytesOrdered By: Safia Ruelas on 03-04-2025 Lymphocytes/100 WBC Auto (Unsp spec) 32.0 % 19- [facility] BUN/creatinine ratioOrdered By: Safia Ruelas on 03-04-2025 Urea nitrogen/Creatinine [Mass ratio] 28.8 mg/mg High 10- [facility] Basophil percentageOrdered B y: Safia Ruelas on 03-04-2025 Basophils/100 WBC (Bld) 0.7 % 0-1 [facility] Carbon dioxide, total [Moles /volume] in Central venous bloodOrdered By: Safia Ruelas on 03-04-2025 CO2 [Moles/Vol] 25.6 mmol/L 21.0-32.0 [facility] Chloride assayOrdered By: Balbir Ruelas on 03-04-2025 Chloride [Moles/Vol] 104 mmol/L 98-108 [facility] Eosinophil percentageOrdered By: Safia Ruelas on 03-04-2025 Eosinophils/100 WBC (Bld) 2.1 % 0-5 [facility] Erythrocyte distribution wid th ratioOrdered By: Safia Ruelas on 03-04-2025 Erythrocyte distribution width (RBC) [Ratio] 14.5 % 11.6-14.6 [facility] Erythrocyte distribution wid th standard deviationOrdered By: Safia Ruelas on 03-04-2025 Erythrocyte distribution width (RBC) [Ratio] 50.6 fl High 35.1-43.9 [facility] Glomerular filtration rate ( GFR) estimation/1.73 sq m using serum, plasma, or whole bOrdered By: Safia Ruelas on 03-04-2025 GFR/1.73 sq M.predicted among non-blacks MDRD (S/P/Bld) [Vol rate/Area] 73 mL/min/{1.73_m2} >60 [facility] Hematocrit Auto (Bld) [Volum e fraction]Ordered By: Safia Ruelas on 03-04-2025 Hematocrit (Bld) [Volume fraction] 38.1 % 37-47 [facility] Hemoglobin measurementOrdere d By: Safia Ruelas on 03-04-2025 Hemoglobin (Bld) [Mass/Vol] 12.0 g/dL 12.0-15.0 [facility] Immature granulocytes/100 WB C Auto (Bld)Ordered By: Safia Ruelas on 03-04-2025 Immature granulocytes/100 WBC (Bld) 0.300 % 0.0-0.9 [facility] MCV (mean corpuscular volume ) determinationOrdered By: Safia Ruelas on 03-04-2025 MCV (RBC) [Entitic vol] 94.1 fL 81-99 [facility] Mean corpuscular hemoglobin (MCH) determinationOrdered By: Safia Ruelas on 03-04-2025 MCH (RBC) [Entitic mass] 29.6 pg 27.0-32.0 [facility] Monocyte percentageOrdered B y: Safia Ruelas on 03-04-2025 Monocytes/100 WBC (Bld) 8.5 % 0-10 [facility] Neutrophil percentageOrdered By: Safia Ruelas on 03-04-2025 Neutrophils/100 WBC (Bld) 56.4 % 47-70 [facility] Platelet countOrdered By: Balbir Ruelas on 03-04-2025 Platelets (Bld) [#/Vol] 246 10*3/uL 150-450 [facility] Potassium measurement (mass/ volume)Ordered By: Safia Ruelas on 03-04-2025 Potassium (Unsp spec) [Mass/Vol] 3.9 mmol/L 3.3-5.1 [facility] RBC Auto (Bld) [#/Vol]Ordere d By: Safia Ruelas on 03-04-2025 RBC (Bld) [#/Vol] 4.05 10*6/uL Low 4.2-5.4 [facility] Serum creatinine measurement (mass/volume)Ordered By: Safia Ruelas on 03-04-2025 Creatinine [Mass/Vol] 0.82 mg/dL 0.70-1.20 [facility] Serum glucose measurement (m ass/volume)Ordered By: Safia Ruelas on 03-04-2025 Glucose [Mass/Vol] 157 mg/dL High 70-99 [facility] Serum or plasma calcium dayna urement (mass/volume)Ordered By: Safia Ruelas on 03-04-2025 Calcium [Mass/Vol] 9.4 mg/dL 7.6-11.0 [facility] Serum or plasma urea nitroge n measurement (mass/volume)Ordered By: Safia Ruelas on 03-04-2025 Urea nitrogen [Mass/Vol] 24 mg/dL High 4-19 [facility] Sodium levelOrdered By: Leonides Ruelas on 03-04-2025 Sodium [Moles/Vol] 142 mmol/L 133-145 [facility] White blood cell (WBC) count Ordered By: Safia Ruelas on 03-04-2025 WBC (Bld) [#/Vol] 9.0 10*3/uL 4.4-11.0 [facility] Absolute lymphocyte countOrd ered By: Safia Ruelas on 02-25-2025 Lymphocytes Auto (Unsp spec) [#/Vol] 3.32 10*3/uL 0.83-4.51 [facility] Anion gap in Serum or Plasma Ordered By: Safia Ruelas on 02-25-2025 Anion gap [Moles/Vol] 12 mmol/L 5-15 [facility] Automated lymphocyte count a s percentage of total leukocytesOrdered By: Safia Ruelas on 02-25-2025 Lymphocytes/100 WBC Auto (Unsp spec) 36.7 % 19- [facility] BUN/creatinine ratioOrdered By: Safia Ruelas on 02-25-2025 Urea nitrogen/Creatinine [Mass ratio] 20.5 mg/mg High 10- [facility] Basophil percentageOrdered B y: Safia Ruelas on 02-25-2025 Basophils/100 WBC (Bld) 0.6 % 0-1 [facility] Carbon dioxide, total [Moles /volume] in Central venous bloodOrdered By: Safia Ruelas on 02-25-2025 CO2 [Moles/Vol] 25.9 mmol/L 21.0-32.0 [facility] Chloride assayOrdered By: Balbir Ruelas on 02-25-2025 Chloride [Moles/Vol] 103 mmol/L 98-108 [facility] Eosinophil percentageOrdered By: sherry Ruelas on 02-25-2025 Eosinophils/100 WBC (Bld) 2.2 % 0-5 [facility] Erythrocyte distribution wid th ratioOrdered By: Safia Westonmelanie on 02-25-2025 Erythrocyte distribution width (RBC) [Ratio] 14.3 % 11.6-14.6 [facility] Erythrocyte distribution wid th standard deviationOrdered By: Safia Ruelas on 02-25-2025 Erythrocyte distribution width (RBC) [Ratio] 48.5 fl High 35.1-43.9 [facility] Glomerular filtration rate ( GFR) estimation/1.73 sq m using serum, plasma, or whole bOrdered By: Saifa Cheobonimelanie on 02-25-2025 GFR/1.73 sq M.predicted among non-blacks MDRD (S/P/Bld) [Vol rate/Area] 75 mL/min/{1.73_m2} >60 [facility] Hematocrit Auto (Bld) [Volum e fraction]Ordered By: Safia Ruelas on 02-25-2025 Hematocrit (Bld) [Volume fraction] 39.0 % 37-47 [facility] Hemoglobin measurementOrdere d By: Safia Ruelas on 02-25-2025 Hemoglobin (Bld) [Mass/Vol] 12.3 g/dL 12.0-15.0 [facility] Immature granulocytes/100 WB C Auto (Bld)Ordered By: Safia Cheobonimelanie on 02-25-2025 Immature granulocytes/100 WBC (Bld) 0.400 % 0.0-0.9 [facility] MCV (mean corpuscular volume ) determinationOrdered By: Safia Cheobonimelanie on 02-25-2025 MCV (RBC) [Entitic vol] 92.4 fL 81-99 [facility] Mean corpuscular hemoglobin (MCH) determinationOrdered By: Safia Ruelas on 02-25-2025 MCH (RBC) [Entitic mass] 29.1 pg 27.0-32.0 [facility] Monocyte percentageOrdered B y: Safia Ruelas on 02-25-2025 Monocytes/100 WBC (Bld) 7.7 % 0-10 [facility] Neutrophil percentageOrdered By: Safia Ruelas on 02-25-2025 Neutrophils/100 WBC (Bld) 52.4 % 47-70 [facility] Platelet countOrdered By: Balbir Ruelas on 02-25-2025 Platelets (Bld) [#/Vol] 257 10*3/uL 150-450 [facility] Potassium measurement (mass/ volume)Ordered By: Safia Ruelas on 02-25-2025 Potassium (Unsp spec) [Mass/Vol] 3.5 mmol/L 3.3-5.1 [facility] RBC Auto (Bld) [#/Vol]Ordere d By: Saifa Ruelas on 02-25-2025 RBC (Bld) [#/Vol] 4.22 10*6/uL 4.2-5.4 [facility] Serum creatinine measurement (mass/volume)Ordered By: Safia Ruelas on 02-25-2025 Creatinine [Mass/Vol] 0.80 mg/dL 0.70-1.20 [facility] Serum glucose measurement (m ass/volume)Ordered By: Safia Ruelas on 02-25-2025 Glucose [Mass/Vol] 121 mg/dL High 70-99 [facility] Serum or plasma calcium dayna urement (mass/volume)Ordered By: Safia Ruelas on 02-25-2025 Calcium [Mass/Vol] 9.2 mg/dL 7.6-11.0 [facility] Serum or plasma urea nitroge n measurement (mass/volume)Ordered By: Safia Ruelas on 02-25-2025 Urea nitrogen [Mass/Vol] 16 mg/dL 4-19 [facility] Sodium levelOrdered By: Leonides jiménezradha Jessenia on 02-25-2025 Sodium [Moles/Vol] 140 mmol/L 133-145 [facility] TSH DL <= 0.005 mIU/L QnOrde red By: Safia Ruelas on 02-25-2025 TSH Qn 0.226 uIU/mL Low 0.300-4.200 [facility] White blood cell (WBC) count Ordered By: Safia Ruelas on 02-25-2025 WBC (Bld) [#/Vol] 9.0 10*3/uL 4.4-11.0 [facility] Absolute lymphocyte countOrd ered By: Safia Ruelas on 02-18-2025 Lymphocytes Auto (Unsp spec) [#/Vol] 1.78 10*3/uL 0.83-4.51 [facility] Anion gap in Serum or Plasma Ordered By: Safia Ruelas on 02-18-2025 Anion gap [Moles/Vol] 13 mmol/L 5-15 [facility] Automated lymphocyte count a s percentage of total leukocytesOrdered By: Safia Ruelas on 02-18-2025 Lymphocytes/100 WBC Auto (Unsp spec) 22.5 % 19-41 [facility] BUN/creatinine ratioOrdered By: Safia Ruelas on 02-18-2025 Urea nitrogen/Creatinine [Mass ratio] 23.7 mg/mg High 10-20 [facility] Basophil percentageOrdered B y: Safia Ruelas on 02-18-2025 Basophils/100 WBC (Bld) 0.4 % 0-1 [facility] Carbon dioxide, total [Moles /volume] in Central venous bloodOrdered By: Safia Ruelas on 02-18-2025 CO2 [Moles/Vol] 23.2 mmol/L 21.0-32.0 [facility] Chloride assayOrdered By: Balbir Ruleas on 02-18-2025 Chloride [Moles/Vol] 102 mmol/L 98-108 [facility] Eosinophil percentageOrdered By: Safia Ruelas on 02-18-2025 Eosinophils/100 WBC (Bld) 0.4 % 0-5 [facility] Erythrocyte distribution wid th ratioOrdered By: Safia Ruelas on 02-18-2025 Erythrocyte distribution width (RBC) [Ratio] 14.3 % 11.6-14.6 [facility] Erythrocyte distribution wid th standard deviationOrdered By: Safia Ruelas on 02-18-2025 Erythrocyte distribution width (RBC) [Ratio] 48.0 fl High 35.1-43.9 [facility] Glomerular filtration rate ( GFR) estimation/1.73 sq m using serum, plasma, or whole bOrdered By: Safia Ruelas on 02-18-2025 GFR/1.73 sq M.predicted among non-blacks MDRD (S/P/Bld) [Vol rate/Area] 76 mL/min/{1.73_m2} >60 [facility] Hematocrit Auto (Bld) [Volum e fraction]Ordered By: Safia Ruelas on 02-18-2025 Hematocrit (Bld) [Volume fraction] 39.0 % 37-47 [facility] Hemoglobin measurementOrdere d By: Safia Ruelas on 02-18-2025 Hemoglobin (Bld) [Mass/Vol] 12.5 g/dL 12.0-15.0 [facility] Immature granulocytes/100 WB C Auto (Bld)Ordered By: Safia Ruelas on 02-18-2025 Immature granulocytes/100 WBC (Bld) 0.300 % 0.0-0.9 [facility] MCV (mean corpuscular volume ) determinationOrdered By: Safia Ruelas on 02-18-2025 MCV (RBC) [Entitic vol] 92.2 fL 81-99 [facility] Mean corpuscular hemoglobin (MCH) determinationOrdered By: Safia Ruelas on 02-18-2025 MCH (RBC) [Entitic mass] 29.6 pg 27.0-32.0 [facility] Monocyte percentageOrdered B y: Safia Ruelas on 02-18-2025 Monocytes/100 WBC (Bld) 4.8 % 0-10 [facility] Neutrophil percentageOrdered By: Safia Ruelas on 02-18-2025 Neutrophils/100 WBC (Bld) 71.6 % High 47-70 [facility] Platelet countOrdered By: Balbir Ruelas on 02-18-2025 Platelets (Bld) [#/Vol] 263 10*3/uL 150-450 [facility] Potassium measurement (mass/ volume)Ordered By: Safia Ruelas on 02-18-2025 Potassium (Unsp spec) [Mass/Vol] 4.1 mmol/L 3.3-5.1 [facility] RBC Auto (Bld) [#/Vol]Ordere d By: Safia Ruelas on 02-18-2025 RBC (Bld) [#/Vol] 4.23 10*6/uL 4.2-5.4 [facility] Serum creatinine measurement (mass/volume)Ordered By: Safia Ruelas on 02-18-2025 Creatinine [Mass/Vol] 0.79 mg/dL 0.70-1.20 [facility] Serum glucose measurement (m ass/volume)Ordered By: Safia Ruelas on 02-18-2025 Glucose [Mass/Vol] 165 mg/dL High 70-99 [facility] Serum or plasma calcium dayna urement (mass/volume)Ordered By: Safia Ruelas on 02-18-2025 Calcium [Mass/Vol] 9.2 mg/dL 7.6-11.0 [facility] Serum or plasma urea nitroge n measurement (mass/volume)Ordered By: Safia Ruelas on 02-18-2025 Urea nitrogen [Mass/Vol] 19 mg/dL 4-19 [facility] Sodium levelOrdered By: Leonides Ruelas on 02-18-2025 Sodium [Moles/Vol] 138 mmol/L 133-145 [facility] White blood cell (WBC) count Ordered By: Balbirjean mariejosé antonio Cheoquyen on 02-18-2025 WBC (Bld) [#/Vol] 7.9 10*3/uL 4.4-11.0 [facility] Absolute lymphocyte countOrd ered By: Safia Ruelas on 02-11-2025 Lymphocytes Auto (Unsp spec) [#/Vol] 2.71 10*3/uL 0.83-4.51 [facility] Anion gap in Serum or Plasma Ordered By: Balbirjean mariejosé antonio Cheobonimelanie on 02-11-2025 Anion gap [Moles/Vol] 14 mmol/L 5-15 [facility] Automated lymphocyte count a s percentage of total leukocytesOrdered By: Safia Cheoquyen on 02-11-2025 Lymphocytes/100 WBC Auto (Unsp spec) 36.1 % 19-41 [facility] BUN/creatinine ratioOrdered By: Balbirjean mariejosé antonio Cheoquyen on 02-11-2025 Urea nitrogen/Creatinine [Mass ratio] 23.1 mg/mg High 10-20 [facility] Basophil percentageOrdered B y: Safia Ruelas on 02-11-2025 Basophils/100 WBC (Bld) 0.7 % 0-1 [facility] Carbon dioxide, total [Moles /volume] in Central venous bloodOrdered By: Safia Cheobonimelanie on 02-11-2025 CO2 [Moles/Vol] 21.6 mmol/L 21.0-32.0 [facility] Chloride assayOrdered By: Balbir randallskye Griderbonimelanie on 02-11-2025 Chloride [Moles/Vol] 103 mmol/L 98-108 [facility] Eosinophil percentageOrdered By: Safia Ruelas on 02-11-2025 Eosinophils/100 WBC (Bld) 2.0 % 0-5 [facility] Erythrocyte distribution wid th ratioOrdered By: jean mariedelphosskye Ruelas on 02-11-2025 Erythrocyte distribution width (RBC) [Ratio] 14.4 % 11.6-14.6 [facility] Erythrocyte distribution wid th standard deviationOrdered By: jean mariedelphosskye Ruelas on 02-11-2025 Erythrocyte distribution width (RBC) [Ratio] 47.5 fl High 35.1-43.9 [facility] Glomerular filtration rate ( GFR) estimation/1.73 sq m using serum, plasma, or whole bOrdered By: sherry Ruelas on 02-11-2025 GFR/1.73 sq M.predicted among non-blacks MDRD (S/P/Bld) [Vol rate/Area] 72 mL/min/{1.73_m2} >60 [facility] Hematocrit Auto (Bld) [Volum e fraction]Ordered By: Safia Ruelas on 02-11-2025 Hematocrit (Bld) [Volume fraction] 37.4 % 37-47 [facility] Hemoglobin measurementOrdere d By: jean mariedelphosskye Ruelas on 02-11-2025 Hemoglobin (Bld) [Mass/Vol] 12.4 g/dL 12.0-15.0 [facility] Immature granulocytes/100 WB C Auto (Bld)Ordered By: Safia Ruelas on 02-11-2025 Immature granulocytes/100 WBC (Bld) 0.400 % 0.0-0.9 [facility] MCV (mean corpuscular volume ) determinationOrdered By: Safia Ruelas on 02-11-2025 MCV (RBC) [Entitic vol] 90.3 fL 81-99 [facility] Mean corpuscular hemoglobin (MCH) determinationOrdered By: [facility] R[facility] on 02-11-2025 MCH (RBC) [Entitic mass] 30.0 pg 27.0-32.0 [facility] Monocyte percentageOrdered B y: Safia Ruelas on 02-11-2025 Monocytes/100 WBC (Bld) 6.8 % 0-10 [facility] Neutrophil percentageOrdered By: Safia Ruelas on 02-11-2025 Neutrophils/100 WBC (Bld) 54.0 % 47-70 [facility] Platelet countOrdered By: Balbir Ruelas on 02-11-2025 Platelets (Bld) [#/Vol] 260 10*3/uL 150-450 [facility] Potassium measurement (mass/ volume)Ordered By: Safia Ruelas on 02-11-2025 Potassium (Unsp spec) [Mass/Vol] 3.6 mmol/L 3.3-5.1 [facility] RBC Auto (Bld) [#/Vol]Ordere d By: Safia Ruelas on 02-11-2025 RBC (Bld) [#/Vol] 4.14 10*6/uL Low 4.2-5.4 [facility] Serum creatinine measurement (mass/volume)Ordered By: Safia Ruelas on 02-11-2025 Creatinine [Mass/Vol] 0.83 mg/dL 0.70-1.20 [facility] Serum glucose measurement (m ass/volume)Ordered By: Safia Ruelas on 02-11-2025 Glucose [Mass/Vol] 110 mg/dL High 70-99 [facility] Serum or plasma calcium dayna urement (mass/volume)Ordered By: Safia Ruelas on 02-11-2025 Calcium [Mass/Vol] 9.1 mg/dL 7.6-11.0 [facility] Serum or plasma urea nitroge n measurement (mass/volume)Ordered By: Safia Ruelas on 02-11-2025 Urea nitrogen [Mass/Vol] 19 mg/dL 4-19 [facility] Sodium levelOrdered By: Leonides Ruelas on 02-11-2025 Sodium [Moles/Vol] 139 mmol/L 133-145 [facility] White blood cell (WBC) count Ordered By: Safia Ruelas on 02-11-2025 WBC (Bld) [#/Vol] 7.5 10*3/uL 4.4-11.0 [facility] Absolute lymphocyte countOrd ered By: Safia Ruelas on 02-04-2025 Lymphocytes Auto (Unsp spec) [#/Vol] 3.03 10*3/uL 0.83-4.51 [facility] Anion gap in Serum or Plasma Ordered By: Safia Ruelas on 02-04-2025 Anion gap [Moles/Vol] 12 mmol/L 5-15 [facility] Automated lymphocyte count a s percentage of total leukocytesOrdered By: Safia Ruelas on 02-04-2025 Lymphocytes/100 WBC Auto (Unsp spec) 36.1 % 19-41 [facility] BUN/creatinine ratioOrdered By: Safia Ruelas on 02-04-2025 Urea nitrogen/Creatinine [Mass ratio] 21.0 mg/mg High 10-20 [facility] Basophil percentageOrdered B y: Safia Ruelas on 02-04-2025 Basophils/100 WBC (Bld) 0.7 % 0-1 [facility] Carbon dioxide, total [Moles /volume] in Central venous bloodOrdered By: Safia Ruelas on 02-04-2025 CO2 [Moles/Vol] 23.5 mmol/L 21.0-32.0 [facility] Chloride assayOrdered By: Balbir Ruelas on 02-04-2025 Chloride [Moles/Vol] 103 mmol/L 98-108 [facility] Eosinophil percentageOrdered By: Safia Ruelas on 02-04-2025 Eosinophils/100 WBC (Bld) 2.3 % 0-5 [facility] Erythrocyte distribution wid th ratioOrdered By: Safia Ruelas on 02-04-2025 Erythrocyte distribution width (RBC) [Ratio] 14.5 % 11.6-14.6 [facility] Erythrocyte distribution wid th standard deviationOrdered By: sherry Ruelas on 02-04-2025 Erythrocyte distribution width (RBC) [Ratio] 47.8 fl High 35.1-43.9 [facility] Glomerular filtration rate ( GFR) estimation/1.73 sq m using serum, plasma, or whole bOrdered By: Safia Ruelas on 02-04-2025 GFR/1.73 sq M.predicted among non-blacks MDRD (S/P/Bld) [Vol rate/Area] 85 mL/min/{1.73_m2} >60 [facility] Hematocrit Auto (Bld) [Volum e fraction]Ordered By: Safia Westonmelanie on 02-04-2025 Hematocrit (Bld) [Volume fraction] 38.3 % 37-47 [facility] Hemoglobin measurementOrdere d By: Safia Ruelas on 02-04-2025 Hemoglobin (Bld) [Mass/Vol] 12.4 g/dL 12.0-15.0 [facility] Immature granulocytes/100 WB C Auto (Bld)Ordered By: jean mariejosé antonio Cheoquyen on 02-04-2025 Immature granulocytes/100 WBC (Bld) 0.400 % 0.0-0.9 [facility] MCV (mean corpuscular volume ) determinationOrdered By: Balbirjean mariedelphosskye Cheobonimelanie on 02-04-2025 MCV (RBC) [Entitic vol] 90.3 fL 81-99 [facility] Mean corpuscular hemoglobin (MCH) determinationOrdered By: sherry Ruelas on 02-04-2025 MCH (RBC) [Entitic mass] 29.2 pg 27.0-32.0 [facility] Monocyte percentageOrdered B y: Safia Ruelas on 02-04-2025 Monocytes/100 WBC (Bld) 7.9 % 0-10 [facility] Neutrophil percentageOrdered By: jean mariedelphosskye Ruelas on 02-04-2025 Neutrophils/100 WBC (Bld) 52.6 % 47-70 [facility] Platelet countOrdered By: Balbir Ruelas on 02-04-2025 Platelets (Bld) [#/Vol] 278 10*3/uL 150-450 [facility] Potassium measurement (mass/ volume)Ordered By: Safia Ruelas on 02-04-2025 Potassium (Unsp spec) [Mass/Vol] 3.4 mmol/L 3.3-5.1 [facility] RBC Auto (Bld) [#/Vol]Ordere d By: Safia Ruelas on 02-04-2025 RBC (Bld) [#/Vol] 4.24 10*6/uL 4.2-5.4 [facility] Serum creatinine measurement (mass/volume)Ordered By: Safia Ruelas on 02-04-2025 Creatinine [Mass/Vol] 0.71 mg/dL 0.70-1.20 [facility] Serum glucose measurement (m ass/volume)Ordered By: Safia Griderbonimelanie on 02-04-2025 Glucose [Mass/Vol] 141 mg/dL High 70-99 [facility] Serum or plasma calcium dayna urement (mass/volume)Ordered By: Safia Ruelas on 02-04-2025 Calcium [Mass/Vol] 9.0 mg/dL 7.6-11.0 [facility] Serum or plasma urea nitroge n measurement (mass/volume)Ordered By: Safia Griderbonimelanie on 02-04-2025 Urea nitrogen [Mass/Vol] 15 mg/dL 4-19 [facility] Sodium levelOrdered By: Leonides josé antonio Jessenia on 02-04-2025 Sodium [Moles/Vol] 139 mmol/L 133-145 [facility] White blood cell (WBC) count Ordered By: Safia Griderbonimelanie on 02-04-2025 WBC (Bld) [#/Vol] 8.4 10*3/uL 4.4-11.0 [facility] Absolute lymphocyte countOrd ered By: Safia Ruelas on 01-28-2025 Lymphocytes Auto (Unsp spec) [#/Vol] 3.03 10*3/uL 0.83-4.51 [facility] Anion gap in Serum or Plasma Ordered By: Safia Ruelas on 01-28-2025 Anion gap [Moles/Vol] 12 mmol/L 5-15 [facility] Automated lymphocyte count a s percentage of total leukocytesOrdered By: Safia Ruelas on 01-28-2025 Lymphocytes/100 WBC Auto (Unsp spec) 36.0 % - [facility] BUN/creatinine ratioOrdered By: Safia Griderbonimelanie on 01-28-2025 Urea nitrogen/Creatinine [Mass ratio] 20.0 mg/mg 10-20 [facility] Basophil percentageOrdered B y: Safia Ruelas on 01-28-2025 Basophils/100 WBC (Bld) 0.6 % 0-1 [facility] Carbon dioxide, total [Moles /volume] in Central venous bloodOrdered By: Safia Ruelas on 01-28-2025 CO2 [Moles/Vol] 24.7 mmol/L 21.0-32.0 [facility] Chloride assayOrdered By: Balbir randallskye Ruelas on 01-28-2025 Chloride [Moles/Vol] 103 mmol/L 98-108 [facility] Eosinophil percentageOrdered By: sherry Ruelas on 01-28-2025 Eosinophils/100 WBC (Bld) 1.8 % 0-5 [facility] Erythrocyte distribution wid th ratioOrdered By: jean mariedelphosskye Ruelas on 01-28-2025 Erythrocyte distribution width (RBC) [Ratio] 14.6 % 11.6-14.6 [facility] Erythrocyte distribution wid th standard deviationOrdered By: jean mariedelphosskye Ruelas on 01-28-2025 Erythrocyte distribution width (RBC) [Ratio] 48.6 fl High 35.1-43.9 [facility] Glomerular filtration rate ( GFR) estimation/1.73 sq m using serum, plasma, or whole bOrdered By: Safia Ruelas on 01-28-2025 GFR/1.73 sq M.predicted among non-blacks MDRD (S/P/Bld) [Vol rate/Area] 88 mL/min/{1.73_m2} >60 [facility] Hematocrit Auto (Bld) [Volum e fraction]Ordered By: Safia Ruelas on 01-28-2025 Hematocrit (Bld) [Volume fraction] 38.1 % 37-47 [facility] Hemoglobin measurementOrdere d By: sherry Ruelas on 01-28-2025 Hemoglobin (Bld) [Mass/Vol] 12.3 g/dL 12.0-15.0 [facility] Immature granulocytes/100 WB C Auto (Bld)Ordered By: Safia Ruelas on 01-28-2025 Immature granulocytes/100 WBC (Bld) 0.400 % 0.0-0.9 [facility] MCV (mean corpuscular volume ) determinationOrdered By: Safia Ruelas on 01-28-2025 MCV (RBC) [Entitic vol] 90.7 fL 81-99 [facility] Mean corpuscular hemoglobin (MCH) determinationOrdered By: Safia Ruelas on 01-28-2025 MCH (RBC) [Entitic mass] 29.3 pg 27.0-32.0 [facility] Monocyte percentageOrdered B y: Safia Ruelas on 01-28-2025 Monocytes/100 WBC (Bld) 8.2 % 0-10 [facility] Neutrophil percentageOrdered By: Safia Ruelas on 01-28-2025 Neutrophils/100 WBC (Bld) 53.0 % 47-70 [facility] Platelet countOrdered By: Balbir Ruelas on 01-28-2025 Platelets (Bld) [#/Vol] 261 10*3/uL 150-450 [facility] Potassium measurement (mass/ volume)Ordered By: Safia Ruelas on 01-28-2025 Potassium (Unsp spec) [Mass/Vol] 3.4 mmol/L 3.3-5.1 [facility] RBC Auto (Bld) [#/Vol]Ordere d By: Safia Ruelas on 01-28-2025 RBC (Bld) [#/Vol] 4.20 10*6/uL 4.2-5.4 [facility] Serum creatinine measurement (mass/volume)Ordered By: Safia Ruelas on 01-28-2025 Creatinine [Mass/Vol] 0.66 mg/dL Low 0.70-1.20 [facility] Serum glucose measurement (m ass/volume)Ordered By: Safia Ruelas on 01-28-2025 Glucose [Mass/Vol] 130 mg/dL High 70-99 [facility] Serum or plasma calcium dayna urement (mass/volume)Ordered By: Safia Ruelas on 01-28-2025 Calcium [Mass/Vol] 9.0 mg/dL 7.6-11.0 [facility] Serum or plasma urea nitroge n measurement (mass/volume)Ordered By: Safia Ruelas on 01-28-2025 Urea nitrogen [Mass/Vol] 13 mg/dL 4-19 [facility] Sodium levelOrdered By: Leonides josé antonio Jessenia on 01-28-2025 Sodium [Moles/Vol] 140 mmol/L 133-145 [facility] White blood cell (WBC) count Ordered By: Safia Ruelas on 01-28-2025 WBC (Bld) [#/Vol] 8.4 10*3/uL 4.4-11.0 [facility] Absolute lymphocyte countOrd ered By: Safia Ruelas on 01-21-2025 Lymphocytes Auto (Unsp spec) [#/Vol] 3.26 10*3/uL 0.83-4.51 [facility] Anion gap in Serum or Plasma Ordered By: Safia Ruelas on 01-21-2025 Anion gap [Moles/Vol] 13 mmol/L 5-15 [facility] Automated lymphocyte count a s percentage of total leukocytesOrdered By: Safia Ruelas on 01-21-2025 Lymphocytes/100 WBC Auto (Unsp spec) 38.3 % 19-41 [facility] BUN/creatinine ratioOrdered By: Safia Ruelas on 01-21-2025 Urea nitrogen/Creatinine [Mass ratio] 20.0 mg/mg 10-20 [facility] Basophil percentageOrdered B y: Safia Ruelas on 01-21-2025 Basophils/100 WBC (Bld) 0.6 % 0-1 [facility] Carbon dioxide, total [Moles /volume] in Central venous bloodOrdered By: Safia Ruelas on 01-21-2025 CO2 [Moles/Vol] 22.3 mmol/L 21.0-32.0 [facility] Chloride assayOrdered By: Balbir Ruelas on 01-21-2025 Chloride [Moles/Vol] 102 mmol/L 98-108 [facility] Eosinophil percentageOrdered By: Safia Ruelas on 01-21-2025 Eosinophils/100 WBC (Bld) 2.1 % 0-5 [facility] Erythrocyte distribution wid th ratioOrdered By: Safia Ruelas on 01-21-2025 Erythrocyte distribution width (RBC) [Ratio] 14.4 % 11.6-14.6 [facility] Erythrocyte distribution wid th standard deviationOrdered By: Safia Ruelas on 01-21-2025 Erythrocyte distribution width (RBC) [Ratio] 47.1 fl High 35.1-43.9 [facility] Glomerular filtration rate ( GFR) estimation/1.73 sq m using serum, plasma, or whole bOrdered By: Safia Ruelas on 01-21-2025 GFR/1.73 sq M.predicted among non-blacks MDRD (S/P/Bld) [Vol rate/Area] 86 mL/min/{1.73_m2} >60 [facility] Hematocrit Auto (Bld) [Volum e fraction]Ordered By: Safia Ruelas on 01-21-2025 Hematocrit (Bld) [Volume fraction] 37.8 % 37-47 [facility] Hemoglobin measurementOrdere d By: Safia Ruelas on 01-21-2025 Hemoglobin (Bld) [Mass/Vol] 12.6 g/dL 12.0-15.0 [facility] Immature granulocytes/100 WB C Auto (Bld)Ordered By: Safia Ruelas 01-21-2025 Immature granulocytes/100 WBC (Bld) 0.400 % 0.0-0.9 [facility] MCV (mean corpuscular volume ) determinationOrdered By: Safia Ruelas 01-21-2025 MCV (RBC) [Entitic vol] 89.6 fL 81-99 [facility] Mean corpuscular hemoglobin (MCH) determinationOrdered By: Safia Ruelas 01-21-2025 MCH (RBC) [Entitic mass] 29.9 pg 27.0-32.0 [facility] Monocyte percentageOrdered B y: Safia Ruelas on 01-21-2025 Monocytes/100 WBC (Bld) 6.9 % 0-10 [facility] Neutrophil percentageOrdered By: Safia Ruelas 01-21-2025 Neutrophils/100 WBC (Bld) 51.7 % 47-70 [facility] Platelet countOrdered By: Balbir Ruelas on 01-21-2025 Platelets (Bld) [#/Vol] 280 10*3/uL 150-450 [facility] Potassium measurement (mass/ volume)Ordered By: Safia Ruelas on 01-21-2025 Potassium (Unsp spec) [Mass/Vol] 3.6 mmol/L 3.3-5.1 [facility] RBC Auto (Bld) [#/Vol]Ordere d By: Safia Ruelas on 01-21-2025 RBC (Bld) [#/Vol] 4.22 10*6/uL 4.2-5.4 [facility] Serum creatinine measurement (mass/volume)Ordered By: Safia Ruelas on 01-21-2025 Creatinine [Mass/Vol] 0.71 mg/dL 0.70-1.20 [facility] Serum glucose measurement (m ass/volume)Ordered By: Safia Ruelas on 01-21-2025 Glucose [Mass/Vol] 126 mg/dL High 70-99 [facility] Serum or plasma calcium dayna urement (mass/volume)Ordered By: Safia Ruelas on 01-21-2025 Calcium [Mass/Vol] 9.0 mg/dL 7.6-11.0 [facility] Serum or plasma urea nitroge n measurement (mass/volume)Ordered By: Safia Ruelas on 01-21-2025 Urea nitrogen [Mass/Vol] 14 mg/dL 4-19 [facility] Sodium levelOrdered By: Leonides jiméneztadmelanie Ruelas on 01-21-2025 Sodium [Moles/Vol] 137 mmol/L 133-145 [facility] White blood cell (WBC) count Ordered By: Safia Ruelas on 01-21-2025 WBC (Bld) [#/Vol] 8.5 10*3/uL 4.4-11.0 [facility] Absolute lymphocyte countOrd ered By: Safia Ruelas on 01-14-2025 Lymphocytes Auto (Unsp spec) [#/Vol] 2.54 10*3/uL 0.83-4.51 [facility] Anion gap in Serum or Plasma Ordered By: Safia Ruelas on 01-14-2025 Anion gap [Moles/Vol] 13 mmol/L 5-15 [facility] Automated lymphocyte count a s percentage of total leukocytesOrdered By: Safia Ruelas on 01-14-2025 Lymphocytes/100 WBC Auto (Unsp spec) 30.6 % 19-41 [facility] BUN/creatinine ratioOrdered By: Safia Ruelas on 01-14-2025 Urea nitrogen/Creatinine [Mass ratio] 16.0 mg/mg 10-20 [facility] Basophil percentageOrdered B y: Safia Ruelas on 01-14-2025 Basophils/100 WBC (Bld) 0.6 % 0-1 [facility] Carbon dioxide, total [Moles /volume] in Central venous bloodOrdered By: Safia Ruelas on 01-14-2025 CO2 [Moles/Vol] 22.8 mmol/L 21.0-32.0 [facility] Chloride assayOrdered By: Balbir Ruelas on 01-14-2025 Chloride [Moles/Vol] 104 mmol/L 98-108 [facility] Eosinophil percentageOrdered By: Safia Ruelas on 01-14-2025 Eosinophils/100 WBC (Bld) 2.2 % 0-5 [facility] Erythrocyte distribution wid th ratioOrdered By: Safia Ruelas on 01-14-2025 Erythrocyte distribution width (RBC) [Ratio] 14.6 % 11.6-14.6 [facility] Erythrocyte distribution wid th standard deviationOrdered By: Safia Ruelas on 01-14-2025 Erythrocyte distribution width (RBC) [Ratio] 48.7 fl High 35.1-43.9 [facility] Glomerular filtration rate ( GFR) estimation/1.73 sq m using serum, plasma, or whole bOrdered By: Safia Ruelas on 01-14-2025 GFR/1.73 sq M.predicted among non-blacks MDRD (S/P/Bld) [Vol rate/Area] 84 mL/min/{1.73_m2} >60 [facility] Hematocrit Auto (Bld) [Volum e fraction]Ordered By: Safia Ruelas on 01-14-2025 Hematocrit (Bld) [Volume fraction] 37.6 % 37-47 [facility] Hemoglobin measurementOrdere d By: Balbirjean mariejosé antonio Cheobonimelanie on 01-14-2025 Hemoglobin (Bld) [Mass/Vol] 12.1 g/dL 12.0-15.0 [facility] Immature granulocytes/100 WB C Auto (Bld)Ordered By: Safia Ruelas on 01-14-2025 Immature granulocytes/100 WBC (Bld) 0.500 % 0.0-0.9 [facility] MCV (mean corpuscular volume ) determinationOrdered By: Safia Ruelas on 01-14-2025 MCV (RBC) [Entitic vol] 90.8 fL 81-99 [facility] Mean corpuscular hemoglobin (MCH) determinationOrdered By: jean mariedelphosskye Ruelas on 01-14-2025 MCH (RBC) [Entitic mass] 29.2 pg 27.0-32.0 [facility] Monocyte percentageOrdered B y: Safia Ruelas on 01-14-2025 Monocytes/100 WBC (Bld) 7.8 % 0-10 [facility] Neutrophil percentageOrdered By: jean mariedelphosskye Ruelas on 01-14-2025 Neutrophils/100 WBC (Bld) 58.3 % 47-70 [facility] Platelet countOrdered By: Balbir randallskye Ruelas on 01-14-2025 Platelets (Bld) [#/Vol] 284 10*3/uL 150-450 [facility] Potassium measurement (mass/ volume)Ordered By: Safia Ruelas on 01-14-2025 Potassium (Unsp spec) [Mass/Vol] 3.5 mmol/L 3.3-5.1 [facility] RBC Auto (Bld) [#/Vol]Ordere d By: Safia Ruelas on 01-14-2025 RBC (Bld) [#/Vol] 4.14 10*6/uL Low 4.2-5.4 [facility] Serum creatinine measurement (mass/volume)Ordered By: Safia Ruelas on 01-14-2025 Creatinine [Mass/Vol] 0.73 mg/dL 0.70-1.20 [facility] Serum glucose measurement (m ass/volume)Ordered By: Safia Ruelas on 01-14-2025 Glucose [Mass/Vol] 137 mg/dL High 70-99 [facility] Serum or plasma calcium dyana urement (mass/volume)Ordered By: Safia Ruelas on 01-14-2025 Calcium [Mass/Vol] 8.8 mg/dL 7.6-11.0 [facility] Serum or plasma urea nitroge n measurement (mass/volume)Ordered By: Safia Ruelas on 01-14-2025 Urea nitrogen [Mass/Vol] 12 mg/dL 4-19 [facility] Sodium levelOrdered By: Leonides jiménezradha Jessenia on 01-14-2025 Sodium [Moles/Vol] 139 mmol/L 133-145 [facility] TSH DL <= 0.005 mIU/L QnOrde red By: Safia Ruelas on 01-14-2025 TSH Qn 1.730 uIU/mL 0.300-4.200 [facility] White blood cell (WBC) count Ordered By: Safia Ruelas on 01-14-2025 WBC (Bld) [#/Vol] 8.3 10*3/uL 4.4-11.0 [facility] Absolute lymphocyte countOrd ered By: Safia Ruelas on 01-07-2025 Lymphocytes Auto (Unsp spec) [#/Vol] 2.90 10*3/uL 0.83-4.51 [facility] Anion gap in Serum or Plasma Ordered By: Safia Ruelas on 01-07-2025 Anion gap [Moles/Vol] 12 mmol/L 5-15 [facility] Automated lymphocyte count a s percentage of total leukocytesOrdered By: Safia Ruelas on 01-07-2025 Lymphocytes/100 WBC Auto (Unsp spec) 36.3 % 19-41 [facility] BUN/creatinine ratioOrdered By: Safia Ruelas on 01-07-2025 Urea nitrogen/Creatinine [Mass ratio] 15.4 mg/mg 10-20 [facility] Basophil percentageOrdered B y: Safia Ruelas on 01-07-2025 Basophils/100 WBC (Bld) 0.6 % 0-1 [facility] Carbon dioxide, total [Moles /volume] in Central venous bloodOrdered By: Safia Ruelas on 01-07-2025 CO2 [Moles/Vol] 23.2 mmol/L 21.0-32.0 [facility] Chloride assayOrdered By: Balbir jean mariejosé antonio Ruelas on 01-07-2025 Chloride [Moles/Vol] 104 mmol/L 98-108 [facility] Eosinophil percentageOrdered By: jean mariedelphosskye Griderbonimelanie on 01-07-2025 Eosinophils/100 WBC (Bld) 2.3 % 0-5 [facility] Erythrocyte distribution wid th ratioOrdered By: jean mariedelphosskye Ruelas on 01-07-2025 Erythrocyte distribution width (RBC) [Ratio] 14.6 % 11.6-14.6 [facility] Erythrocyte distribution wid th standard deviationOrdered By: Leonidesdelphosskye Ruelas on 01-07-2025 Erythrocyte distribution width (RBC) [Ratio] 48.5 fl High 35.1-43.9 [facility] Glomerular filtration rate ( GFR) estimation/1.73 sq m using serum, plasma, or whole bOrdered By: Safia Ruelas on 01-07-2025 GFR/1.73 sq M.predicted among non-blacks MDRD (S/P/Bld) [Vol rate/Area] 86 mL/min/{1.73_m2} >60 [facility] Hematocrit Auto (Bld) [Volum e fraction]Ordered By: Safia Ruelas on 01-07-2025 Hematocrit (Bld) [Volume fraction] 36.6 % Low 37-47 [facility] Hemoglobin measurementOrdere d By: Safia Ruelas on 01-07-2025 Hemoglobin (Bld) [Mass/Vol] 11.9 g/dL Low 12.0-15.0 [facility] Immature granulocytes/100 WB C Auto (Bld)Ordered By: Safia Ruelas on 01-07-2025 Immature granulocytes/100 WBC (Bld) 0.300 % 0.0-0.9 [facility] MCV (mean corpuscular volume ) determinationOrdered By: Balbirjean mariedesireeskye Griderbonimelanie on 01-07-2025 MCV (RBC) [Entitic vol] 90.6 fL 81-99 [facility] Mean corpuscular hemoglobin (MCH) determinationOrdered By: Safia Cheoquyen on 01-07-2025 MCH (RBC) [Entitic mass] 29.5 pg 27.0-32.0 [facility] Monocyte percentageOrdered B y: [place] Griderbonimelanie on 01-07-2025 Monocytes/100 WBC (Bld) 7.9 % 0-10 [facility] Neutrophil percentageOrdered By: Safia Cheoquyen on 01-07-2025 Neutrophils/100 WBC (Bld) 52.6 % 47-70 [facility] Platelet countOrdered By: Balbir sherry Cheoquyen on 01-07-2025 Platelets (Bld) [#/Vol] 263 10*3/uL 150-450 [facility] Potassium measurement (mass/ volume)Ordered By: Safia Griderbonimelanie on 01-07-2025 Potassium (Unsp spec) [Mass/Vol] 3.5 mmol/L 3.3-5.1 [facility] RBC Auto (Bld) [#/Vol]Ordere d By: Balbirjean mariejosé antonio Cheoquyen on 01-07-2025 RBC (Bld) [#/Vol] 4.04 10*6/uL Low 4.2-5.4 [facility] Serum creatinine measurement (mass/volume)Ordered By: Safia Ruelas on 01-07-2025 Creatinine [Mass/Vol] 0.71 mg/dL 0.70-1.20 [facility] Serum glucose measurement (m ass/volume)Ordered By: Safia Ruelas on 01-07-2025 Glucose [Mass/Vol] 139 mg/dL High 70-99 [facility] Serum or plasma calcium dayna urement (mass/volume)Ordered By: Safia Ruelas on 01-07-2025 Calcium [Mass/Vol] 8.5 mg/dL 7.6-11.0 [facility] Serum or plasma urea nitroge n measurement (mass/volume)Ordered By: Balbirjean mariedesireeskye Griderbonimelanie on 01-07-2025 Urea nitrogen [Mass/Vol] 11 mg/dL 4- [facility] Sodium levelOrdered By: Leonides Ruelas on 01-07-2025 Sodium [Moles/Vol] 139 mmol/L 133-145 [facility] White blood cell (WBC) count Ordered By: Balbirjean mariejosé antonio Cheoquyen on 01-07-2025 WBC (Bld) [#/Vol] 8.0 10*3/uL 4.4-11.0 [facility] Absolute lymphocyte countOrd ered By: Balbirjean mariejosé antonio Cheoquyen on 12-31-2024 Lymphocytes Auto (Unsp spec) [#/Vol] 2.27 10*3/uL 0.83-4.51 [facility] Anion gap in Serum or Plasma Ordered By: Leonidesjosé antonio Cheobonimelanie on 12-31-2024 Anion gap [Moles/Vol] 14 mmol/L 5-15 [facility] Automated lymphocyte count a s percentage of total leukocytesOrdered By: Safia Ruelas on 12-31-2024 Lymphocytes/100 WBC Auto (Unsp spec) 32.9 % 19-41 [facility] BUN/creatinine ratioOrdered By: Leonidesdesireeskye Griderbonimelanie on 12-31-2024 Urea nitrogen/Creatinine [Mass ratio] 15.0 mg/mg 10-20 [facility] Basophil percentageOrdered B y: Safia Cheobonimelanie on 12-31-2024 Basophils/100 WBC (Bld) 0.6 % 0-1 [facility] Carbon dioxide, total [Moles /volume] in Central venous bloodOrdered By: Balbirjean mariejosé antonio Cheobonimelanie on 12-31-2024 CO2 [Moles/Vol] 22.1 mmol/L 21.0-32.0 [facility] Chloride assayOrdered By: Balbir jean mariejosé antonio Griderbonimelanie on 12-31-2024 Chloride [Moles/Vol] 103 mmol/L 98-108 [facility] Eosinophil percentageOrdered By: Leonidesdesireeskye Griderbonimelanie on 12-31-2024 Eosinophils/100 WBC (Bld) 3.2 % 0-5 [facility] Erythrocyte distribution wid th ratioOrdered By: Safia Ruelas on 12-31-2024 Erythrocyte distribution width (RBC) [Ratio] 14.6 % 11.6-14.6 [facility] Erythrocyte distribution wid th standard deviationOrdered By: Safia Ruelas on 12-31-2024 Erythrocyte distribution width (RBC) [Ratio] 48.9 fl High 35.1-43.9 [facility] Glomerular filtration rate ( GFR) estimation/1.73 sq m using serum, plasma, or whole bOrdered By: Safia Ruelas on 12-31-2024 GFR/1.73 sq M.predicted among non-blacks MDRD (S/P/Bld) [Vol rate/Area] 88 mL/min/{1.73_m2} >60 [facility] Hematocrit Auto (Bld) [Volum e fraction]Ordered By: Leonidesdelphosskye Ruelas on 12-31-2024 Hematocrit (Bld) [Volume fraction] 36.8 % Low 37-47 [facility] Hemoglobin A1c percentageOrd ered By: Safia Ruelas on 12-31-2024 HbA1c (Bld) [Mass fraction] 6.5 % High <5.7 [facility] Hemoglobin measurementOrdere d By: Safia Ruelas on 12-31-2024 Hemoglobin (Bld) [Mass/Vol] 11.8 g/dL Low 12.0-15.0 [facility] Immature granulocytes/100 WB C Auto (Bld)Ordered By: Safia Ruelas on 12-31-2024 Immature granulocytes/100 WBC (Bld) 0.300 % 0.0-0.9 [facility] MCV (mean corpuscular volume ) determinationOrdered By: Safia Ruelas on 12-31-2024 MCV (RBC) [Entitic vol] 91.3 fL 81-99 [facility] Mean corpuscular hemoglobin (MCH) determinationOrdered By: Safia Ruelas on 12-31-2024 MCH (RBC) [Entitic mass] 29.3 pg 27.0-32.0 [facility] Monocyte percentageOrdered B y: Safia Ruelas on 12-31-2024 Monocytes/100 WBC (Bld) 9.4 % 0-10 [facility] Neutrophil percentageOrdered By: Safia Ruelas on 12-31-2024 Neutrophils/100 WBC (Bld) 53.6 % 47-70 [facility] Platelet countOrdered By: Balbir Ruelas on 12-31-2024 Platelets (Bld) [#/Vol] 232 10*3/uL 150-450 [facility] Potassium measurement (mass/ volume)Ordered By: Safia Ruelas on 12-31-2024 Potassium (Unsp spec) [Mass/Vol] 3.5 mmol/L 3.3-5.1 [facility] RBC Auto (Bld) [#/Vol]Ordere d By: Safia Ruelas on 12-31-2024 RBC (Bld) [#/Vol] 4.03 10*6/uL Low 4.2-5.4 [facility] Serum creatinine measurement (mass/volume)Ordered By: Safia Ruelas on 12-31-2024 Creatinine [Mass/Vol] 0.70 mg/dL 0.70-1.20 [facility] Serum glucose measurement (m ass/volume)Ordered By: Safia Ruelas on 12-31-2024 Glucose [Mass/Vol] 142 mg/dL High 70-99 [facility] Serum or plasma calcium dayna urement (mass/volume)Ordered By: Safia Ruelas on 12-31-2024 Calcium [Mass/Vol] 8.4 mg/dL 7.6-11.0 [facility] Serum or plasma urea nitroge n measurement (mass/volume)Ordered By: Safia Ruelas on 12-31-2024 Urea nitrogen [Mass/Vol] 10 mg/dL 4-19 [facility] Sodium levelOrdered By: Leonides Ruelas on 12-31-2024 Sodium [Moles/Vol] 139 mmol/L 133-145 [facility] White blood cell (WBC) count Ordered By: Safia Ruelas on 12-31-2024 WBC (Bld) [#/Vol] 6.9 10*3/uL 4.4-11.0 [facility] Absolute lymphocyte countOrd ered By: Safia Ruelas on 12-24-2024 Lymphocytes Auto (Unsp spec) [#/Vol] 2.54 10*3/uL 0.83-4.51 [facility] Anion gap in Serum or Plasma Ordered By: Safia Ruelas on 12-24-2024 Anion gap [Moles/Vol] 14 mmol/L 5-15 [facility] Automated lymphocyte count a s percentage of total leukocytesOrdered By: Safia Griderbonimelanie on 12-24-2024 Lymphocytes/100 WBC Auto (Unsp spec) 28.0 % 19-41 [facility] BUN/creatinine ratioOrdered By: Safia Griderbonimelanie on 12-24-2024 Urea nitrogen/Creatinine [Mass ratio] 18.4 mg/mg 10-20 [facility] Basophil percentageOrdered B y: Safia Ruelas on 12-24-2024 Basophils/100 WBC (Bld) 0.8 % 0-1 [facility] Carbon dioxide, total [Moles /volume] in Central venous bloodOrdered By: Safia Ruelas on 12-24-2024 CO2 [Moles/Vol] 22.1 mmol/L 21.0-32.0 [facility] Chloride assayOrdered By: Balbir jean mariejosé antonio Ruelas on 12-24-2024 Chloride [Moles/Vol] 101 mmol/L 98-108 [facility] Eosinophil percentageOrdered By: Safia Ruelas on 12-24-2024 Eosinophils/100 WBC (Bld) 2.6 % 0-5 [facility] Erythrocyte distribution wid th ratioOrdered By: Safia Ruelas on 12-24-2024 Erythrocyte distribution width (RBC) [Ratio] 14.4 % 11.6-14.6 [facility] Erythrocyte distribution wid th standard deviationOrdered By: Safia Griderbonimelanie on 12-24-2024 Erythrocyte distribution width (RBC) [Ratio] 48.8 fl High 35.1-43.9 [facility] Glomerular filtration rate ( GFR) estimation/1.73 sq m using serum, plasma, or whole bOrdered By: Safia Ruelas on 12-24-2024 GFR/1.73 sq M.predicted among non-blacks MDRD (S/P/Bld) [Vol rate/Area] 83 mL/min/{1.73_m2} >60 [facility] Hematocrit Auto (Bld) [Volum e fraction]Ordered By: Safia Ruelas on 12-24-2024 Hematocrit (Bld) [Volume fraction] 37.9 % 37-47 [facility] Hemoglobin measurementOrdere d By: Leonidesjosé antonio Cheobonimelanie on 12-24-2024 Hemoglobin (Bld) [Mass/Vol] 12.2 g/dL 12.0-15.0 [facility] Immature granulocytes/100 WB C Auto (Bld)Ordered By: Safia Griderbonimelanie on 12-24-2024 Immature granulocytes/100 WBC (Bld) 0.400 % 0.0-0.9 [facility] MCV (mean corpuscular volume ) determinationOrdered By: Safia Griderbonimelanie on 12-24-2024 MCV (RBC) [Entitic vol] 92.2 fL 81-99 [facility] Mean corpuscular hemoglobin (MCH) determinationOrdered By: Safia Griderbonimelanie on 12-24-2024 MCH (RBC) [Entitic mass] 29.7 pg 27.0-32.0 [facility] Monocyte percentageOrdered B y: Balbirjean mariedesireeskye Griderbonimelanie on 12-24-2024 Monocytes/100 WBC (Bld) 8.7 % 0-10 [facility] Neutrophil percentageOrdered By: Leonidesdelphosskye Griderbonimelanie on 12-24-2024 Neutrophils/100 WBC (Bld) 59.5 % 47-70 [facility] Platelet countOrdered By: Balbir sherry Cheobonimelanie on 12-24-2024 Platelets (Bld) [#/Vol] 256 10*3/uL 150-450 [facility] Potassium measurement (mass/ volume)Ordered By: Balbirjean mariedesireeskye Griderbonimelanie on 12-24-2024 Potassium (Unsp spec) [Mass/Vol] 3.4 mmol/L 3.3-5.1 [facility] RBC Auto (Bld) [#/Vol]Ordere d By: Leonidesjosé antonio Cheobonimelanie on 12-24-2024 RBC (Bld) [#/Vol] 4.11 10*6/uL Low 4.2-5.4 [facility] Serum creatinine measurement (mass/volume)Ordered By: Safia Ruelas on 12-24-2024 Creatinine [Mass/Vol] 0.73 mg/dL 0.70-1.20 [facility] Serum glucose measurement (m ass/volume)Ordered By: Safia Griderbonimelanie on 12-24-2024 Glucose [Mass/Vol] 142 mg/dL High 70-99 [facility] Serum or plasma calcium dayna urement (mass/volume)Ordered By: Safia Ruelas on 12-24-2024 Calcium [Mass/Vol] 9.1 mg/dL 7.6-11.0 [facility] Serum or plasma urea nitroge n measurement (mass/volume)Ordered By: Safia Ruelas on 12-24-2024 Urea nitrogen [Mass/Vol] 13 mg/dL 4-19 [facility] Sodium levelOrdered By: Leonides josé antonio Jessenia on 12-24-2024 Sodium [Moles/Vol] 137 mmol/L 133-145 [facility] White blood cell (WBC) count Ordered By: Safia Griderbonimelanie on 12-24-2024 WBC (Bld) [#/Vol] 9.1 10*3/uL 4.4-11.0 [facility] Absolute lymphocyte countOrd ered By: Safia Ruelas on 12-17-2024 Lymphocytes Auto (Unsp spec) [#/Vol] 2.94 10*3/uL 0.83-4.51 [facility] Anion gap in Serum or Plasma Ordered By: Safia Ruelas on 12-17-2024 Anion gap [Moles/Vol] 15 mmol/L 5-15 [facility] Automated lymphocyte count a s percentage of total leukocytesOrdered By: Safia Ruelas on 12-17-2024 Lymphocytes/100 WBC Auto (Unsp spec) 30.5 % 19-41 [facility] BUN/creatinine ratioOrdered By: Safia Ruelas on 12-17-2024 Urea nitrogen/Creatinine [Mass ratio] 23.4 mg/mg High 10-20 [facility] Basophil percentageOrdered B y: Safia Ruelas on 12-17-2024 Basophils/100 WBC (Bld) 0.7 % 0-1 [facility] Carbon dioxide, total [Moles /volume] in Central venous bloodOrdered By: Safia Ruelas on 12-17-2024 CO2 [Moles/Vol] 22.1 mmol/L 21.0-32.0 [facility] Chloride assayOrdered By: Balbir Ruelas on 12-17-2024 Chloride [Moles/Vol] 102 mmol/L 98-108 [facility] Eosinophil percentageOrdered By: jean mariedelphosskye Ruelas on 12-17-2024 Eosinophils/100 WBC (Bld) 2.3 % 0-5 [facility] Erythrocyte distribution wid th ratioOrdered By: jean mariedelphosskye Ruelas on 12-17-2024 Erythrocyte distribution width (RBC) [Ratio] 14.1 % 11.6-14.6 [facility] Erythrocyte distribution wid th standard deviationOrdered By: Leonidesdelphosskye Ruelas on 12-17-2024 Erythrocyte distribution width (RBC) [Ratio] 47.3 fl High 35.1-43.9 [facility] Glomerular filtration rate ( GFR) estimation/1.73 sq m using serum, plasma, or whole bOrdered By: Safia Ruelas on 12-17-2024 GFR/1.73 sq M.predicted among non-blacks MDRD (S/P/Bld) [Vol rate/Area] 77 mL/min/{1.73_m2} >60 [facility] Hematocrit Auto (Bld) [Volum e fraction]Ordered By: Safia Ruelas on 12-17-2024 Hematocrit (Bld) [Volume fraction] 40.2 % 37-47 [facility] Hemoglobin measurementOrdere d By: Safia Ruelas on 12-17-2024 Hemoglobin (Bld) [Mass/Vol] 12.7 g/dL 12.0-15.0 [facility] Immature granulocytes/100 WB C Auto (Bld)Ordered By: Safia Ruelas on 12-17-2024 Immature granulocytes/100 WBC (Bld) 0.400 % 0.0-0.9 [facility] MCV (mean corpuscular volume ) determinationOrdered By: Safia Ruelas on 12-17-2024 MCV (RBC) [Entitic vol] 92.2 fL 81-99 [facility] Mean corpuscular hemoglobin (MCH) determinationOrdered By: Safia Ruelas on 12-17-2024 MCH (RBC) [Entitic mass] 29.1 pg 27.0-32.0 [facility] Monocyte percentageOrdered B y: Safia Ruelas on 12-17-2024 Monocytes/100 WBC (Bld) 8.6 % 0-10 [facility] Neutrophil percentageOrdered By: Safia Ruelas on 12-17-2024 Neutrophils/100 WBC (Bld) 57.5 % 47-70 [facility] Platelet countOrdered By: Balbir Ruelas on 12-17-2024 Platelets (Bld) [#/Vol] 287 10*3/uL 150-450 [facility] Potassium measurement (mass/ volume)Ordered By: Safia Ruelas on 12-17-2024 Potassium (Unsp spec) [Mass/Vol] 3.5 mmol/L 3.3-5.1 [facility] RBC Auto (Bld) [#/Vol]Ordere d By: Safia Ruelas on 12-17-2024 RBC (Bld) [#/Vol] 4.36 10*6/uL 4.2-5.4 [facility] Serum creatinine measurement (mass/volume)Ordered By: Safia Ruelas on 12-17-2024 Creatinine [Mass/Vol] 0.78 mg/dL 0.70-1.20 [facility] Serum glucose measurement (m ass/volume)Ordered By: Safia Ruelas on 12-17-2024 Glucose [Mass/Vol] 125 mg/dL High 70-99 [facility] Serum or plasma calcium dayna urement (mass/volume)Ordered By: Safia Ruelas on 12-17-2024 Calcium [Mass/Vol] 9.2 mg/dL 7.6-11.0 [facility] Serum or plasma urea nitroge n measurement (mass/volume)Ordered By: Safia Ruelas on 12-17-2024 Urea nitrogen [Mass/Vol] 18 mg/dL 4-19 [facility] Sodium levelOrdered By: Leonides josé antonio Jessenia on 12-17-2024 Sodium [Moles/Vol] 139 mmol/L 133-145 [facility] White blood cell (WBC) count Ordered By: Safia Ruelas on 12-17-2024 WBC (Bld) [#/Vol] 9.6 10*3/uL 4.4-11.0 [facility] Absolute lymphocyte countOrd ered By: Safia Ruelas on 12-10-2024 Lymphocytes Auto (Unsp spec) [#/Vol] 2.59 10*3/uL 0.83-4.51 [facility] Anion gap in Serum or Plasma Ordered By: Safia Ruelas on 12-10-2024 Anion gap [Moles/Vol] 15 mmol/L 5-15 [facility] Automated lymphocyte count a s percentage of total leukocytesOrdered By: Safia Ruelas on 12-10-2024 Lymphocytes/100 WBC Auto (Unsp spec) 30.2 % 19-41 [facility] BUN/creatinine ratioOrdered By: Safia Ruelas on 12-10-2024 Urea nitrogen/Creatinine [Mass ratio] 25.6 mg/mg High 10-20 [facility] Basophil percentageOrdered B y: Safia Ruelas on 12-10-2024 Basophils/100 WBC (Bld) 0.9 % 0-1 [facility] Carbon dioxide, total [Moles /volume] in Central venous bloodOrdered By: Safia Ruelas on 12-10-2024 CO2 [Moles/Vol] 21.7 mmol/L 21.0-32.0 [facility] Chloride assayOrdered By: Balbir Ruelas on 12-10-2024 Chloride [Moles/Vol] 101 mmol/L 98-108 [facility] Eosinophil percentageOrdered By: Safia Ruelas on 12-10-2024 Eosinophils/100 WBC (Bld) 1.9 % 0-5 [facility] Erythrocyte distribution wid th ratioOrdered By: Safia Ruelas on 12-10-2024 Erythrocyte distribution width (RBC) [Ratio] 13.7 % 11.6-14.6 [facility] Erythrocyte distribution wid th standard deviationOrdered By: Safia Ruelas on 12-10-2024 Erythrocyte distribution width (RBC) [Ratio] 46.8 fl High 35.1-43.9 [facility] Glomerular filtration rate ( GFR) estimation/1.73 sq m using serum, plasma, or whole bOrdered By: Safia Ruelas on 12-10-2024 GFR/1.73 sq M.predicted among non-blacks MDRD (S/P/Bld) [Vol rate/Area] 72 mL/min/{1.73_m2} >60 [facility] Hematocrit Auto (Bld) [Volum e fraction]Ordered By: Leonidesdelphosskye Ruelas on 12-10-2024 Hematocrit (Bld) [Volume fraction] 38.8 % 37-47 [facility] Hemoglobin measurementOrdere d By: Safia Ruelas on 12-10-2024 Hemoglobin (Bld) [Mass/Vol] 12.3 g/dL 12.0-15.0 [facility] Immature granulocytes/100 WB C Auto (Bld)Ordered By: Safia Ruelas on 12-10-2024 Immature granulocytes/100 WBC (Bld) 0.500 % 0.0-0.9 [facility] MCV (mean corpuscular volume ) determinationOrdered By: Safia Ruelas on 12-10-2024 MCV (RBC) [Entitic vol] 93.3 fL 81-99 [facility] Mean corpuscular hemoglobin (MCH) determinationOrdered By: jean mariedelphosskye Ruelas on 12-10-2024 MCH (RBC) [Entitic mass] 29.6 pg 27.0-32.0 [facility] Monocyte percentageOrdered B y: Safia Ruelas on 12-10-2024 Monocytes/100 WBC (Bld) 8.2 % 0-10 [facility] Neutrophil percentageOrdered By: jean mariedelphosskye Ruelas on 12-10-2024 Neutrophils/100 WBC (Bld) 58.3 % 47-70 [facility] Platelet countOrdered By: Balbir Ruelas on 12-10-2024 Platelets (Bld) [#/Vol] 247 10*3/uL 150-450 [facility] Potassium measurement (mass/ volume)Ordered By: Safia Ruelas on 12-10-2024 Potassium (Unsp spec) [Mass/Vol] 3.8 mmol/L 3.3-5.1 [facility] RBC Auto (Bld) [#/Vol]Ordere d By: Safia Ruelas on 12-10-2024 RBC (Bld) [#/Vol] 4.16 10*6/uL Low 4.2-5.4 [facility] Serum creatinine measurement (mass/volume)Ordered By: Safia Ruelas on 12-10-2024 Creatinine [Mass/Vol] 0.82 mg/dL 0.70-1.20 [facility] Serum glucose measurement (m ass/volume)Ordered By: Safia Cheoquyen on 12-10-2024 Glucose [Mass/Vol] 149 mg/dL High 70-99 [facility] Serum or plasma calcium dayna urement (mass/volume)Ordered By: Safia Ruelas on 12-10-2024 Calcium [Mass/Vol] 9.1 mg/dL 7.6-11.0 [facility] Serum or plasma urea nitroge n measurement (mass/volume)Ordered By: Safia Ruelas on 12-10-2024 Urea nitrogen [Mass/Vol] 21 mg/dL High 4-19 [facility] Sodium levelOrdered By: Leonides Ruelas on 12-10-2024 Sodium [Moles/Vol] 137 mmol/L 133-145 [facility] White blood cell (WBC) count Ordered By: Safia Cheoquyen on 12-10-2024 WBC (Bld) [#/Vol] 8.6 10*3/uL 4.4-11.0 [facility] Absolute lymphocyte countOrd ered By: Safia Cheoquyen on 12-03-2024 Lymphocytes Auto (Unsp spec) [#/Vol] 2.81 10*3/uL 0.83-4.51 [facility] Anion gap in Serum or Plasma Ordered By: Safia Ruelas on 12-03-2024 Anion gap [Moles/Vol] 14 mmol/L 5-15 [facility] Automated lymphocyte count a s percentage of total leukocytesOrdered By: Safia Ruelas on 12-03-2024 Lymphocytes/100 WBC Auto (Unsp spec) 28.3 % 19-41 [facility] BUN/creatinine ratioOrdered By: Safia Ruelas on 12-03-2024 Urea nitrogen/Creatinine [Mass ratio] 28.4 mg/mg High 10-20 [facility] Basophil percentageOrdered B y: Safia Ruelas on 12-03-2024 Basophils/100 WBC (Bld) 0.6 % 0-1 [facility] Carbon dioxide, total [Moles /volume] in Central venous bloodOrdered By: Leonidesdelphosskye Ruelas on 12-03-2024 CO2 [Moles/Vol] 23.3 mmol/L 21.0-32.0 [facility] Chloride assayOrdered By: Balbir Ruelas on 12-03-2024 Chloride [Moles/Vol] 102 mmol/L 98-108 [facility] Eosinophil percentageOrdered By: Safia Ruelas on 12-03-2024 Eosinophils/100 WBC (Bld) 1.5 % 0-5 [facility] Erythrocyte distribution wid th ratioOrdered By: Safia Ruelas on 12-03-2024 Erythrocyte distribution width (RBC) [Ratio] 14.1 % 11.6-14.6 [facility] Erythrocyte distribution wid th standard deviationOrdered By: Safia Ruelas on 12-03-2024 Erythrocyte distribution width (RBC) [Ratio] 47.9 fl High 35.1-43.9 [facility] Glomerular filtration rate ( GFR) estimation/1.73 sq m using serum, plasma, or whole bOrdered By: Safia Ruelas on 12-03-2024 GFR/1.73 sq M.predicted among non-blacks MDRD (S/P/Bld) [Vol rate/Area] 65 mL/min/{1.73_m2} >60 [facility] Hematocrit Auto (Bld) [Volum e fraction]Ordered By: Safia Griderbonimelanie on 12-03-2024 Hematocrit (Bld) [Volume fraction] 40.0 % 37-47 [facility] Hemoglobin measurementOrdere d By: Safia Ruelas on 12-03-2024 Hemoglobin (Bld) [Mass/Vol] 12.9 g/dL 12.0-15.0 [facility] Immature granulocytes/100 WB C Auto (Bld)Ordered By: Balbirjean mariejosé antonio Cheobonimelanie on 12-03-2024 Immature granulocytes/100 WBC (Bld) 0.300 % 0.0-0.9 [facility] MCV (mean corpuscular volume ) determinationOrdered By: Balbirsherry Griderbonimelanie on 12-03-2024 MCV (RBC) [Entitic vol] 91.3 fL 81-99 [facility] Mean corpuscular hemoglobin (MCH) determinationOrdered By: Balbirsherry Griderbonimelanie on 12-03-2024 MCH (RBC) [Entitic mass] 29.5 pg 27.0-32.0 [facility] Monocyte percentageOrdered B y: Safia Cheobonimelanie on 12-03-2024 Monocytes/100 WBC (Bld) 9.6 % 0-10 [facility] Neutrophil percentageOrdered By: Safia Ruelas on 12-03-2024 Neutrophils/100 WBC (Bld) 59.7 % 47-70 [facility] Platelet countOrdered By: Balbir powell Cheobonimelanie on 12-03-2024 Platelets (Bld) [#/Vol] 280 10*3/uL 150-450 [facility] Potassium measurement (mass/ volume)Ordered By: Balbirjean mariedesireeskye Griderbonimelanie on 12-03-2024 Potassium (Unsp spec) [Mass/Vol] 4.0 mmol/L 3.3-5.1 [facility] RBC Auto (Bld) [#/Vol]Ordere d By: Safia Cheobonimelanie on 12-03-2024 RBC (Bld) [#/Vol] 4.38 10*6/uL 4.2-5.4 [facility] Serum creatinine measurement (mass/volume)Ordered By: Safia Ruelas on 12-03-2024 Creatinine [Mass/Vol] 0.89 mg/dL 0.70-1.20 [facility] Serum glucose measurement (m ass/volume)Ordered By: Safia Ruelas on 12-03-2024 Glucose [Mass/Vol] 77 mg/dL 70-99 [facility] Serum or plasma calcium dayna urement (mass/volume)Ordered By: Safia Griderbonimelanie on 12-03-2024 Calcium [Mass/Vol] 9.6 mg/dL 7.6-11.0 [facility] Serum or plasma urea nitroge n measurement (mass/volume)Ordered By: Safia Ruelas on 12-03-2024 Urea nitrogen [Mass/Vol] 25 mg/dL High 4-19 [facility] Sodium levelOrdered By: Leonides josé antonio Jessenia on 12-03-2024 Sodium [Moles/Vol] 139 mmol/L 133-145 [facility] TSH DL <= 0.005 mIU/L QnOrde red By: Leonidesdesireeskye Griderbonimelanie on 12-03-2024 TSH Qn 3.500 uIU/mL 0.300-4.200 [facility] White blood cell (WBC) count Ordered By: Safia Ruelas on 12-03-2024 WBC (Bld) [#/Vol] 9.9 10*3/uL 4.4-11.0 [facility] Absolute lymphocyte countOrd ered By: Safia Griderbonimelanie on 11-26-2024 Lymphocytes Auto (Unsp spec) [#/Vol] 2.99 10*3/uL 0.83-4.51 [facility] Absolute neutrophil countOrd ered By: [place]e Griderbonimelanie on 11-26-2024 Neutrophils (Bld) [#/Vol] 4.2 10*3/uL 2.0-7.7 [facility] Anion gap in Serum or Plasma Ordered By: Safia Griderbonimelanie on 11-26-2024 Anion gap [Moles/Vol] 13 mmol/L - [facility] Automated lymphocyte count a s percentage of total leukocytesOrdered By: Safia Ruelas on 11-26-2024 Lymphocytes/100 WBC Auto (Unsp spec) 37.1 % 19-41 [facility] BUN/creatinine ratioOrdered By: Safia Ruelas on 11-26-2024 Urea nitrogen/Creatinine [Mass ratio] 24.3 mg/mg High 10-20 [facility] Basophil percentageOrdered B y: Safia Ruelas on 11-26-2024 Basophils/100 WBC (Bld) 0.7 % 0-1 [facility] Carbon dioxide, total [Moles /volume] in Central venous bloodOrdered By: Safia Ruelas on 11-26-2024 CO2 [Moles/Vol] 27.1 mmol/L 21.0-32.0 [facility] Chloride assayOrdered By: Balbir Ruelas on 11-26-2024 Chloride [Moles/Vol] 101 mmol/L 98-108 [facility] Eosinophil percentageOrdered By: sherry Ruelas on 11-26-2024 Eosinophils/100 WBC (Bld) 1.9 % 0-5 [facility] Erythrocyte distribution wid th ratioOrdered By: Safia Ruelas on 11-26-2024 Erythrocyte distribution width (RBC) [Ratio] 14.2 % 11.6-14.6 [facility] Erythrocyte distribution wid th standard deviationOrdered By: Safia Ruelas on 11-26-2024 Erythrocyte distribution width (RBC) [Ratio] 48.0 fl High 35.1-43.9 [facility] Glomerular filtration rate ( GFR) estimation/1.73 sq m using serum, plasma, or whole bOrdered By: Safia Ruelas on 11-26-2024 GFR/1.73 sq M.predicted among non-blacks MDRD (S/P/Bld) [Vol rate/Area] 63 mL/min/{1.73_m2} >60 [facility] Comment on above: mL/min/1.73m2 CKD-EP I Creatinine Equation (2020) Hematocrit Auto (Bld) [Volum e fraction]Ordered By: Safia Ruelas on 11-26-2024 Hematocrit (Bld) [Volume fraction] 42.7 % 37-47 [facility] Hemoglobin measurementOrdere d By: Safia Ruelas on 11-26-2024 Hemoglobin (Bld) [Mass/Vol] 13.6 g/dL 12.0-15.0 [facility] Immature granulocytes/100 WB C Auto (Bld)Ordered By: Safia Ruelas on 11-26-2024 Immature granulocytes/100 WBC (Bld) 0.500 % 0.0-0.9 [facility] Comment on above: IG% - Immature Granu locytes (promyelocytes, myelocytes and metamyelocytes) > 1% indicates that a LEFT SHIFT is Present. MCV (mean corpuscular volume ) determinationOrdered By: Safia Ruelas on 11-26-2024 MCV (RBC) [Entitic vol] 92.0 fL 81-99 [facility] Mean corpuscular hemoglobin (MCH) determinationOrdered By: Safia Ruelas on 11-26-2024 MCH (RBC) [Entitic mass] 29.3 pg 27.0-32.0 [facility] Mean corpuscular hemoglobin concentration (MCHC) determinationOrdered By: Safia Ruelas on 11-26-2024 MCHC (RBC) [Mass/Vol] 31.9 g/dL Low 32-36 [facility] Mean platelet volume determi nationOrdered By: Safia Ruelas on 11-26-2024 Platelet mean volume (Bld) [Entitic vol] 11.5 fL 6.2-12.0 [facility] Monocyte percentageOrdered B y: Safia Ruelas on 11-26-2024 Monocytes/100 WBC (Bld) 7.7 % 0-10 [facility] Neutrophil percentageOrdered By: Safia Ruelas on 11-26-2024 Neutrophils/100 WBC (Bld) 52.1 % 47-70 [facility] Nucleated red blood cell per centageOrdered By: Safia Ruelas on 11-26-2024 Nucleated RBC/100 WBC (Bld) [Ratio] 0 % 0-5 [facility] Platelet countOrdered By: Balbir Ruelas on 11-26-2024 Platelets (Bld) [#/Vol] 283 10*3/uL 150-450 [facility] Potassium measurement (mass/ volume)Ordered By: Safia Ruelas on 11-26-2024 Potassium (Unsp spec) [Mass/Vol] 3.8 mmol/L 3.3-5.1 [facility] RBC Auto (Bld) [#/Vol]Ordere d By: Leonidesdesireeskye Griderbonimelanie on 11-26-2024 RBC (Bld) [#/Vol] 4.64 10*6/uL 4.2-5.4 [facility] Serum creatinine measurement (mass/volume)Ordered By: Safia Ruelas on 11-26-2024 Creatinine [Mass/Vol] 0.92 mg/dL 0.70-1.20 [facility] Serum glucose measurement (m ass/volume)Ordered By: Safia Ruelas on 11-26-2024 Glucose [Mass/Vol] 97 mg/dL 70-99 [facility] Serum or plasma calcium dayna urement (mass/volume)Ordered By: Safia Ruelas on 11-26-2024 Calcium [Mass/Vol] 10.0 mg/dL 7.6-11.0 [facility] Serum or plasma urea nitroge n measurement (mass/volume)Ordered By: Safia Ruelas on 11-26-2024 Urea nitrogen [Mass/Vol] 22 mg/dL High 4-19 [facility] Sodium levelOrdered By: Leonides josé antonio Cheobonimelanie on 11-26-2024 Sodium [Moles/Vol] 140 mmol/L 133-145 [facility] White blood cell (WBC) count Ordered By: Safia Ruelas on 11-26-2024 WBC (Bld) [#/Vol] 8.1 10*3/uL 4.4-11.0 [facility] Clostridium difficile detect ion by polymerase chain reactionOrdered By: Safia Ruelas on 11-25-2024 C. difficile DNA CHUCKY+probe Ql (Unsp spec) [facility] Absolute lymphocyte countOrd ered By: Safia Ruelas on 11-19-2024 Lymphocytes Auto (Unsp spec) [#/Vol] 2.71 10*3/uL 0.83-4.51 [facility] Absolute neutrophil countOrd ered By: Safia Ruelas on 11-19-2024 Neutrophils (Bld) [#/Vol] 5.2 10*3/uL 2.0-7.7 [facility] Anion gap in Serum or Plasma Ordered By: Safia Ruelas on 11-19-2024 Anion gap [Moles/Vol] 12 mmol/L 5-15 [facility] Automated lymphocyte count a s percentage of total leukocytesOrdered By: Safia Ruelas on 11-19-2024 Lymphocytes/100 WBC Auto (Unsp spec) 30.4 % 19-41 [facility] BUN/creatinine ratioOrdered By: jean mariedelphosskye Ruelas on 11-19-2024 Urea nitrogen/Creatinine [Mass ratio] 25.0 mg/mg High 10-20 [facility] Basophil percentageOrdered B y: Safia Ruelas on 11-19-2024 Basophils/100 WBC (Bld) 0.6 % 0-1 [facility] Carbon dioxide, total [Moles /volume] in Central venous bloodOrdered By: Safia Ruelas on 11-19-2024 CO2 [Moles/Vol] 25.5 mmol/L 21.0-32.0 [facility] Chloride assayOrdered By: Balbir Ruelas on 11-19-2024 Chloride [Moles/Vol] 101 mmol/L 98-108 [facility] Eosinophil percentageOrdered By: jean mariedelphosskye Ruelas on 11-19-2024 Eosinophils/100 WBC (Bld) 2.1 % 0-5 [facility] Erythrocyte distribution wid th ratioOrdered By: Safia Ruelas on 11-19-2024 Erythrocyte distribution width (RBC) [Ratio] 13.9 % 11.6-14.6 [facility] Erythrocyte distribution wid th standard deviationOrdered By: sherry Ruelas on 11-19-2024 Erythrocyte distribution width (RBC) [Ratio] 46.6 fl High 35.1-43.9 [facility] Glomerular filtration rate ( GFR) estimation/1.73 sq m using serum, plasma, or whole bOrdered By: Safia Ruelas on 11-19-2024 GFR/1.73 sq M.predicted among non-blacks MDRD (S/P/Bld) [Vol rate/Area] 66 mL/min/{1.73_m2} >60 [facility] Comment on above: mL/min/1.73m2 CKD-EP I Creatinine Equation (2020) Hematocrit Auto (Bld) [Volum e fraction]Ordered By: Safia Ruelas on 11-19-2024 Hematocrit (Bld) [Volume fraction] 39.2 % 37-47 [facility] Hemoglobin measurementOrdere d By: Safia Ruelas on 11-19-2024 Hemoglobin (Bld) [Mass/Vol] 12.7 g/dL 12.0-15.0 [facility] Immature granulocytes/100 WB C Auto (Bld)Ordered By: Safia Ruelas on 11-19-2024 Immature granulocytes/100 WBC (Bld) 0.300 % 0.0-0.9 [facility] Comment on above: IG% - Immature Granu locytes (promyelocytes, myelocytes and metamyelocytes) > 1% indicates that a LEFT SHIFT is Present. MCV (mean corpuscular volume ) determinationOrdered By: Safia Ruelas on 11-19-2024 MCV (RBC) [Entitic vol] 91.4 fL 81-99 [facility] Mean corpuscular hemoglobin (MCH) determinationOrdered By: Safia Ruelas on 11-19-2024 MCH (RBC) [Entitic mass] 29.6 pg 27.0-32.0 [facility] Mean corpuscular hemoglobin concentration (MCHC) determinationOrdered By: Safia Ruelas on 11-19-2024 MCHC (RBC) [Mass/Vol] 32.4 g/dL 32-36 [facility] Mean platelet volume determi nationOrdered By: Safia Ruelas on 11-19-2024 Platelet mean volume (Bld) [Entitic vol] 11.5 fL 6.2-12.0 [facility] Monocyte percentageOrdered B y: Safia Ruelas on 11-19-2024 Monocytes/100 WBC (Bld) 7.8 % 0-10 [facility] Neutrophil percentageOrdered By: Safia Ruelas on 11-19-2024 Neutrophils/100 WBC (Bld) 58.8 % 47-70 [facility] Nucleated red blood cell per centageOrdered By: Safia Cheoquyen on 11-19-2024 Nucleated RBC/100 WBC (Bld) [Ratio] 0 % 0-5 [facility] Platelet countOrdered By: Balbir sherry Cheobonimelanie on 11-19-2024 Platelets (Bld) [#/Vol] 300 10*3/uL 150-450 [facility] Potassium measurement (mass/ volume)Ordered By: Safia Griderbonimelanie on 11-19-2024 Potassium (Unsp spec) [Mass/Vol] 3.8 mmol/L 3.3-5.1 [facility] RBC Auto (Bld) [#/Vol]Ordere d By: Leonidesdesireeskye Griderbonimelanie on 11-19-2024 RBC (Bld) [#/Vol] 4.29 10*6/uL 4.2-5.4 [facility] Serum creatinine measurement (mass/volume)Ordered By: Safia Ruelas on 11-19-2024 Creatinine [Mass/Vol] 0.88 mg/dL 0.70-1.20 [facility] Serum glucose measurement (m ass/volume)Ordered By: Balbirjean mariedesireeskye Ruelas on 11-19-2024 Glucose [Mass/Vol] 136 mg/dL High 70-99 [facility] Serum or plasma calcium dayna urement (mass/volume)Ordered By: Leonidesdesireeskye Gridrebonimelanie on 11-19-2024 Calcium [Mass/Vol] 9.6 mg/dL 7.6-11.0 [facility] Serum or plasma urea nitroge n measurement (mass/volume)Ordered By: Safia Ruelas on 11-19-2024 Urea nitrogen [Mass/Vol] 22 mg/dL High 4-19 [facility] Sodium levelOrdered By: Balbirjean marie josé antonio Cheobonimelanie on 11-19-2024 Sodium [Moles/Vol] 139 mmol/L 133-145 [facility] White blood cell (WBC) count Ordered By: Safia Ruelas on 11-19-2024 WBC (Bld) [#/Vol] 8.9 10*3/uL 4.4-11.0 [facility] Absolute lymphocyte countOrd ered By: Leonidesjosé antonio Cheobonimelanie on 11-12-2024 Lymphocytes Auto (Unsp spec) [#/Vol] 2.49 10*3/uL 0.83-4.51 [facility] Absolute neutrophil countOrd ered By: Leonidesdesireeskye Griderbonimelanie on 11-12-2024 Neutrophils (Bld) [#/Vol] 4.2 10*3/uL 2.0-7.7 [facility] Anion gap in Serum or Plasma Ordered By: Safia Ruelas on 11-12-2024 Anion gap [Moles/Vol] 12 mmol/L 5-15 [facility] Automated lymphocyte count a s percentage of total leukocytesOrdered By: Safia Ruelas on 11-12-2024 Lymphocytes/100 WBC Auto (Unsp spec) 31.9 % 19-41 [facility] BUN/creatinine ratioOrdered By: Safia Ruelas on 11-12-2024 Urea nitrogen/Creatinine [Mass ratio] 28.1 mg/mg High 10-20 [facility] Basophil percentageOrdered B y: Safia Ruelas on 11-12-2024 Basophils/100 WBC (Bld) 0.6 % 0-1 [facility] Carbon dioxide, total [Moles /volume] in Central venous bloodOrdered By: Safia Ruelas on 11-12-2024 CO2 [Moles/Vol] 25.1 mmol/L 21.0-32.0 [facility] Chloride assayOrdered By: Balbir Ruelas on 11-12-2024 Chloride [Moles/Vol] 102 mmol/L 98-108 [facility] Eosinophil percentageOrdered By: sherry Ruelas on 11-12-2024 Eosinophils/100 WBC (Bld) 2.8 % 0-5 [facility] Erythrocyte distribution wid th ratioOrdered By: Safia Ruelas on 11-12-2024 Erythrocyte distribution width (RBC) [Ratio] 13.8 % 11.6-14.6 [facility] Erythrocyte distribution wid th standard deviationOrdered By: Safia Ruelas on 11-12-2024 Erythrocyte distribution width (RBC) [Ratio] 46.7 fl High 35.1-43.9 [facility] Glomerular filtration rate ( GFR) estimation/1.73 sq m using serum, plasma, or whole bOrdered By: Safia Ruelas on 11-12-2024 GFR/1.73 sq M.predicted among non-blacks MDRD (S/P/Bld) [Vol rate/Area] 70 mL/min/{1.73_m2} >60 [facility] Comment on above: mL/min/1.73m2 CKD-EP I Creatinine Equation (2020) Hematocrit Auto (Bld) [Volum e fraction]Ordered By: jean mariedelphosskye Ruelas on 11-12-2024 Hematocrit (Bld) [Volume fraction] 40.6 % 37-47 [facility] Hemoglobin measurementOrdere d By: Safia Ruelas on 11-12-2024 Hemoglobin (Bld) [Mass/Vol] 13.2 g/dL 12.0-15.0 [facility] Immature granulocytes/100 WB C Auto (Bld)Ordered By: Safia Ruelas on 11-12-2024 Immature granulocytes/100 WBC (Bld) 0.400 % 0.0-0.9 [facility] Comment on above: IG% - Immature Granu locytes (promyelocytes, myelocytes and metamyelocytes) > 1% indicates that a LEFT SHIFT is Present. MCV (mean corpuscular volume ) determinationOrdered By: Safia Ruelas on 11-12-2024 MCV (RBC) [Entitic vol] 92.1 fL 81-99 [facility] Mean corpuscular hemoglobin (MCH) determinationOrdered By: Safia Ruelas on 11-12-2024 MCH (RBC) [Entitic mass] 29.9 pg 27.0-32.0 [facility] Mean corpuscular hemoglobin concentration (MCHC) determinationOrdered By: jean mariedelphosskye Ruelas on 11-12-2024 MCHC (RBC) [Mass/Vol] 32.5 g/dL 32-36 [facility] Mean platelet volume determi nationOrdered By: Safia Ruelas on 11-12-2024 Platelet mean volume (Bld) [Entitic vol] 11.7 fL 6.2-12.0 [facility] Monocyte percentageOrdered B y: Safia Ruelas on 11-12-2024 Monocytes/100 WBC (Bld) 10.0 % 0-10 [facility] Neutrophil percentageOrdered By: Safia Ruelas on 11-12-2024 Neutrophils/100 WBC (Bld) 54.3 % 47-70 [facility] Nucleated red blood cell per centageOrdered By: Safia Ruelas on 11-12-2024 Nucleated RBC/100 WBC (Bld) [Ratio] 0 % 0-5 [facility] Platelet countOrdered By: Balbir Ruelas on 11-12-2024 Platelets (Bld) [#/Vol] 304 10*3/uL 150-450 [facility] Potassium measurement (mass/ volume)Ordered By: Safia Ruelas on 11-12-2024 Potassium (Unsp spec) [Mass/Vol] 3.9 mmol/L 3.3-5.1 [facility] RBC Auto (Bld) [#/Vol]Ordere d By: Safia Ruelas on 11-12-2024 RBC (Bld) [#/Vol] 4.41 10*6/uL 4.2-5.4 [facility] Serum creatinine measurement (mass/volume)Ordered By: Safia Ruelas on 11-12-2024 Creatinine [Mass/Vol] 0.84 mg/dL 0.70-1.20 [facility] Serum glucose measurement (m ass/volume)Ordered By: Safia Ruelas on 11-12-2024 Glucose [Mass/Vol] 112 mg/dL High 70-99 [facility] Serum or plasma calcium dayna urement (mass/volume)Ordered By: Safia Ruelas on 11-12-2024 Calcium [Mass/Vol] 9.7 mg/dL 7.6-11.0 [facility] Serum or plasma urea nitroge n measurement (mass/volume)Ordered By: Safia Ruelas on 11-12-2024 Urea nitrogen [Mass/Vol] 24 mg/dL High 4-19 [facility] Sodium levelOrdered By: Leonides josé antonio Cheobonimelanie on 11-12-2024 Sodium [Moles/Vol] 139 mmol/L 133-145 [facility] White blood cell (WBC) count Ordered By: Leonidesjosé antonio Cheobonimelanie on 11-12-2024 WBC (Bld) [#/Vol] 7.8 10*3/uL 4.4-11.0 [facility] Absolute lymphocyte countOrd ered By: Leonidesdesireeskye Griderbonimelanie on 11-05-2024 Lymphocytes Auto (Unsp spec) [#/Vol] 2.91 10*3/uL 0.83-4.51 [facility] Absolute neutrophil countOrd ered By: Safia Griderbonimelanie on 11-05-2024 Neutrophils (Bld) [#/Vol] 4.6 10*3/uL 2.0-7.7 [facility] Anion gap in Serum or Plasma Ordered By: Safia Griderbonimelanie on 11-05-2024 Anion gap [Moles/Vol] 13 mmol/L 5-15 [facility] Automated lymphocyte count a s percentage of total leukocytesOrdered By: Safia Ruelas on 11-05-2024 Lymphocytes/100 WBC Auto (Unsp spec) 33.7 % 19-41 [facility] BUN/creatinine ratioOrdered By: Safia Griderbonimelanie on 11-05-2024 Urea nitrogen/Creatinine [Mass ratio] 23.3 mg/mg High 10-20 [facility] Basophil percentageOrdered B y: Safia Griderbonimelanie on 11-05-2024 Basophils/100 WBC (Bld) 0.9 % 0-1 [facility] Carbon dioxide, total [Moles /volume] in Central venous bloodOrdered By: Safia Ruelas on 11-05-2024 CO2 [Moles/Vol] 24.2 mmol/L 21.0-32.0 [facility] Chloride assayOrdered By: Balbir Ruelas on 11-05-2024 Chloride [Moles/Vol] 102 mmol/L 98-108 [facility] Eosinophil percentageOrdered By: Safia Ruelas on 11-05-2024 Eosinophils/100 WBC (Bld) 2.7 % 0-5 [facility] Erythrocyte distribution wid th ratioOrdered By: Safia Ruelas on 11-05-2024 Erythrocyte distribution width (RBC) [Ratio] 13.9 % 11.6-14.6 [facility] Erythrocyte distribution wid th standard deviationOrdered By: Safia Ruelas on 11-05-2024 Erythrocyte distribution width (RBC) [Ratio] 47.1 fl High 35.1-43.9 [facility] Glomerular filtration rate ( GFR) estimation/1.73 sq m using serum, plasma, or whole bOrdered By: Safia Ruelas on 11-05-2024 GFR/1.73 sq M.predicted among non-blacks MDRD (S/P/Bld) [Vol rate/Area] 62 mL/min/{1.73_m2} >60 [facility] Comment on above: mL/min/1.73m2 CKD-EP I Creatinine Equation (2020) Hematocrit Auto (Bld) [Volum e fraction]Ordered By: Safia Ruelas on 11-05-2024 Hematocrit (Bld) [Volume fraction] 40.7 % 37-47 [facility] Hemoglobin measurementOrdere d By: Safia Ruelas on 11-05-2024 Hemoglobin (Bld) [Mass/Vol] 12.9 g/dL 12.0-15.0 [facility] Immature granulocytes/100 WB C Auto (Bld)Ordered By: Safia Ruelas 11-05-2024 Immature granulocytes/100 WBC (Bld) 0.500 % 0.0-0.9 [facility] Comment on above: IG% - Immature Granu locytes (promyelocytes, myelocytes and metamyelocytes) > 1% indicates that a LEFT SHIFT is Present. MCV (mean corpuscular volume ) determinationOrdered By: Safia Ruelas on 11-05-2024 MCV (RBC) [Entitic vol] 92.9 fL 81-99 [facility] Mean corpuscular hemoglobin (MCH) determinationOrdered By: Leonidesdelphosskye Ruelas 11-05-2024 MCH (RBC) [Entitic mass] 29.5 pg 27.0-32.0 [facility] Mean corpuscular hemoglobin concentration (MCHC) determinationOrdered By: Safia Ruelas on 11-05-2024 MCHC (RBC) [Mass/Vol] 31.7 g/dL Low 32-36 [facility] Mean platelet volume determi nationOrdered By: Safia Ruelas on 11-05-2024 Platelet mean volume (Bld) [Entitic vol] 11.2 fL 6.2-12.0 [facility] Monocyte percentageOrdered B y: Safia Ruelas on 11-05-2024 Monocytes/100 WBC (Bld) 8.6 % 0-10 [facility] Neutrophil percentageOrdered By: Safia Ruelas on 11-05-2024 Neutrophils/100 WBC (Bld) 53.6 % 47-70 [facility] Nucleated red blood cell per centageOrdered By: Safia Ruelas on 11-05-2024 Nucleated RBC/100 WBC (Bld) [Ratio] 0 % 0-5 [facility] Platelet countOrdered By: Balbir Ruelas on 11-05-2024 Platelets (Bld) [#/Vol] 318 10*3/uL 150-450 [facility] Potassium measurement (mass/ volume)Ordered By: Safia Ruelas on 11-05-2024 Potassium (Unsp spec) [Mass/Vol] 4.0 mmol/L 3.3-5.1 [facility] RBC Auto (Bld) [#/Vol]Ordere d By: Safia Ruelas on 11-05-2024 RBC (Bld) [#/Vol] 4.38 10*6/uL 4.2-5.4 [facility] Serum creatinine measurement (mass/volume)Ordered By: Safia Ruelas on 11-05-2024 Creatinine [Mass/Vol] 0.93 mg/dL 0.70-1.20 [facility] Serum glucose measurement (m ass/volume)Ordered By: Safia Ruelas on 11-05-2024 Glucose [Mass/Vol] 70 mg/dL 70-99 [facility] Serum or plasma calcium dayna urement (mass/volume)Ordered By: Safia Ruelas on 11-05-2024 Calcium [Mass/Vol] 9.5 mg/dL 7.6-11.0 [facility] Serum or plasma urea nitroge n measurement (mass/volume)Ordered By: Bandarskye Griderbonimelanie on 11-05-2024 Urea nitrogen [Mass/Vol] 22 mg/dL High 4-19 [facility] Sodium levelOrdered By: Leonides Ruelas on 11-05-2024 Sodium [Moles/Vol] 139 mmol/L 133-145 [facility] White blood cell (WBC) count Ordered By: Balbirjean mariejosé antonio Cheobonimelanie on 11-05-2024 WBC (Bld) [#/Vol] 8.6 10*3/uL 4.4-11.0 [facility] Absolute lymphocyte countOrd ered By: Balbirjean mariejosé antonio Cheobonimelanie on 10-29-2024 Lymphocytes Auto (Unsp spec) [#/Vol] 2.69 10*3/uL 0.83-4.51 [facility] Absolute neutrophil countOrd ered By: Safia Cheobonimelanie on 10-29-2024 Neutrophils (Bld) [#/Vol] 4.5 10*3/uL 2.0-7.7 [facility] Anion gap in Serum or Plasma Ordered By: Balbirjean mariejosé antonio Cheobonimelanie on 10-29-2024 Anion gap [Moles/Vol] 11 mmol/L 5-15 [facility] Automated lymphocyte count a s percentage of total leukocytesOrdered By: Balbirsherry Griderbonimelanie on 10-29-2024 Lymphocytes/100 WBC Auto (Unsp spec) 32.6 % 19-41 [facility] BUN/creatinine ratioOrdered By: Balbirjean mariedesireeskye Griderbonimelanie on 10-29-2024 Urea nitrogen/Creatinine [Mass ratio] 25.2 mg/mg High 10-20 [facility] Basophil percentageOrdered B y: Safia Cheobonimelanie on 10-29-2024 Basophils/100 WBC (Bld) 0.7 % 0-1 [facility] Carbon dioxide, total [Moles /volume] in Central venous bloodOrdered By: Balbirsherry Griderbonimelanie on 10-29-2024 CO2 [Moles/Vol] 25.7 mmol/L 21.0-32.0 [facility] Chloride assayOrdered By: Balbir Ruelas on 10-29-2024 Chloride [Moles/Vol] 102 mmol/L 98-108 [facility] Eosinophil percentageOrdered By: Safia Ruelas on 10-29-2024 Eosinophils/100 WBC (Bld) 2.1 % 0-5 [facility] Erythrocyte distribution wid th ratioOrdered By: Safia Ruelas on 10-29-2024 Erythrocyte distribution width (RBC) [Ratio] 13.6 % 11.6-14.6 [facility] Erythrocyte distribution wid th standard deviationOrdered By: Safia Ruelas on 10-29-2024 Erythrocyte distribution width (RBC) [Ratio] 46.6 fl High 35.1-43.9 [facility] Glomerular filtration rate ( GFR) estimation/1.73 sq m using serum, plasma, or whole bOrdered By: Safia Ruelas on 10-29-2024 GFR/1.73 sq M.predicted among non-blacks MDRD (S/P/Bld) [Vol rate/Area] 59 mL/min/{1.73_m2} Low >60 [facility] Comment on above: mL/min/1.73m2 CKD-EP I Creatinine Equation (2020) Hematocrit Auto (Bld) [Volum e fraction]Ordered By: Safia Ruelas on 10-29-2024 Hematocrit (Bld) [Volume fraction] 37.8 % 37-47 [facility] Hemoglobin measurementOrdere d By: Safia Ruelas on 10-29-2024 Hemoglobin (Bld) [Mass/Vol] 12.2 g/dL 12.0-15.0 [facility] Immature granulocytes/100 WB C Auto (Bld)Ordered By: Safia Ruelas 10-29-2024 Immature granulocytes/100 WBC (Bld) 0.400 % 0.0-0.9 [facility] Comment on above: IG% - Immature Granu locytes (promyelocytes, myelocytes and metamyelocytes) > 1% indicates that a LEFT SHIFT is Present. MCV (mean corpuscular volume ) determinationOrdered By: Safia Ruelas on 10-29-2024 MCV (RBC) [Entitic vol] 92.2 fL 81-99 [facility] Mean corpuscular hemoglobin (MCH) determinationOrdered By: Safia Ruelas on 10-29-2024 MCH (RBC) [Entitic mass] 29.8 pg 27.0-32.0 [facility] Mean corpuscular hemoglobin concentration (MCHC) determinationOrdered By: Safia Ruelas on 10-29-2024 MCHC (RBC) [Mass/Vol] 32.3 g/dL 32-36 [facility] Mean platelet volume determi nationOrdered By: Safia Ruelas on 10-29-2024 Platelet mean volume (Bld) [Entitic vol] 11.1 fL 6.2-12.0 [facility] Monocyte percentageOrdered B y: Safia Ruelas on 10-29-2024 Monocytes/100 WBC (Bld) 9.9 % 0-10 [facility] Neutrophil percentageOrdered By: Safia Ruelas on 10-29-2024 Neutrophils/100 WBC (Bld) 54.3 % 47-70 [facility] Nucleated red blood cell per centageOrdered By: Safia Ruelas on 10-29-2024 Nucleated RBC/100 WBC (Bld) [Ratio] 0 % 0-5 [facility] Platelet countOrdered By: Balbir jean mariejosé antonio Ruelas on 10-29-2024 Platelets (Bld) [#/Vol] 283 10*3/uL 150-450 [facility] Potassium measurement (mass/ volume)Ordered By: Safia Ruelas on 10-29-2024 Potassium (Unsp spec) [Mass/Vol] 3.9 mmol/L 3.3-5.1 [facility] RBC Auto (Bld) [#/Vol]Ordere d By: Safia Ruelas on 10-29-2024 RBC (Bld) [#/Vol] 4.10 10*6/uL Low 4.2-5.4 [facility] Serum creatinine measurement (mass/volume)Ordered By: Safia Ruelas on 10-29-2024 Creatinine [Mass/Vol] 0.97 mg/dL 0.70-1.20 [facility] Serum glucose measurement (m ass/volume)Ordered By: Safia Ruelas on 10-29-2024 Glucose [Mass/Vol] 74 mg/dL 70-99 [facility] Serum or plasma calcium dayna urement (mass/volume)Ordered By: Safia Ruelas on 10-29-2024 Calcium [Mass/Vol] 9.5 mg/dL 7.6-11.0 [facility] Serum or plasma urea nitroge n measurement (mass/volume)Ordered By: Safia Ruelas on 10-29-2024 Urea nitrogen [Mass/Vol] 24 mg/dL High 4-19 [facility] Sodium levelOrdered By: Leonides Ruelas on 10-29-2024 Sodium [Moles/Vol] 138 mmol/L 133-145 [facility] White blood cell (WBC) count Ordered By: Safia Ruelas on 10-29-2024 WBC (Bld) [#/Vol] 8.3 10*3/uL 4.4-11.0 [facility] Bilirubin Test strip Ql (U)O rdered By: Safia Ruelas on 10-23-2024 Bilirubin Ql (U) Negative Negative [facility] Ketones Test strip Ql (U)Ord ered By: Safia Ruelas on 10-23-2024 Ketones Ql (U) Negative Negative [facility] Nitrite Test strip Ql (U)Ord ered By: Safia Ruelas on 10-23-2024 Nitrite Ql (U) Positive High Negative [facility] Protein Test strip Ql (U)Ord ered By: Safia Ruelas on 10-23-2024 Protein Ql (U) 15 mg/dl High Negative [facility] Urine clarityOrdered By: Augusto Ruelas on 10-23-2024 Clarity (U) Clear Clear [facility] Urine color determinationOrd ered By: Safia Ruelas on 10-23-2024 Color (U) Yellow Yellow [facility] Urine cultureOrdered By: Augusto Ruelas on 10-23-2024 Bacteria identified Cx Nom (U) Klebsiella pneumoniae sp pneum Abnormal [facility] Urine glucose detectionOrder ed By: Safia Ruelas on 10-23-2024 Glucose Ql (U) Normal mg/dl Normal [facility] Urine leukocyte esterase det ection by dipstickOrdered By: Safia Ruelas on 10-23-2024 Leukocyte esterase Test strip Ql (U) 500 /ul High Negative [facility] Urine pHOrdered By: Mazin Ruelas on 10-23-2024 pH (U) 6.0 [pH] 5.0 - 8.0 [facility] Urine specific gravity measu rementOrdered By: Safia Ruelas on 10-23-2024 Specific gravity (U) [Rel density] 1.010 1.002-1.030 [facility] Urine urobilinogen measureme ntOrdered By: Safia Ruelas on 10-23-2024 Urobilinogen Ql (U) Normal mg/dl Normal [facility] Absolute lymphocyte countOrd ered By: Safia Ruelas on 10-22-2024 Lymphocytes Auto (Unsp spec) [#/Vol] 3.07 10*3/uL 0.83-4.51 [facility] Absolute neutrophil countOrd ered By: Safia Ruelas on 10-22-2024 Neutrophils (Bld) [#/Vol] 4.6 10*3/uL 2.0-7.7 [facility] Anion gap in Serum or Plasma Ordered By: Safia Ruelas on 10-22-2024 Anion gap [Moles/Vol] 15 mmol/L 5-15 [facility] Automated lymphocyte count a s percentage of total leukocytesOrdered By: Safia Ruelas on 10-22-2024 Lymphocytes/100 WBC Auto (Unsp spec) 34.8 % 19-41 [facility] BUN/creatinine ratioOrdered By: Safia Ruelas on 10-22-2024 Urea nitrogen/Creatinine [Mass ratio] 28.6 mg/mg High 10-20 [facility] Basophil percentageOrdered B y: Safia Ruelas on 10-22-2024 Basophils/100 WBC (Bld) 0.9 % 0-1 [facility] Carbon dioxide, total [Moles /volume] in Central venous bloodOrdered By: Safia Ruelas on 10-22-2024 CO2 [Moles/Vol] 23.1 mmol/L 21.0-32.0 [facility] Chloride assayOrdered By: Balbir Ruelas on 10-22-2024 Chloride [Moles/Vol] 100 mmol/L 98-108 [facility] Eosinophil percentageOrdered By: sherry Ruelas on 10-22-2024 Eosinophils/100 WBC (Bld) 3.1 % 0-5 [facility] Erythrocyte distribution wid th ratioOrdered By: jean mariedelphosskye Ruelas on 10-22-2024 Erythrocyte distribution width (RBC) [Ratio] 13.6 % 11.6-14.6 [facility] Erythrocyte distribution wid th standard deviationOrdered By: jean mariedelphosskye Ruelas on 10-22-2024 Erythrocyte distribution width (RBC) [Ratio] 45.9 fl High 35.1-43.9 [facility] Glomerular filtration rate ( GFR) estimation/1.73 sq m using serum, plasma, or whole bOrdered By: Safia Ruelas on 10-22-2024 GFR/1.73 sq M.predicted among non-blacks MDRD (S/P/Bld) [Vol rate/Area] 60 mL/min/{1.73_m2} >60 [facility] Comment on above: mL/min/1.73m2 CKD-EP I Creatinine Equation (2020) Hematocrit Auto (Bld) [Volum e fraction]Ordered By: Safia Ruelas on 10-22-2024 Hematocrit (Bld) [Volume fraction] 40.7 % 37-47 [facility] Hemoglobin measurementOrdere d By: Safia Ruelas on 10-22-2024 Hemoglobin (Bld) [Mass/Vol] 13.1 g/dL 12.0-15.0 [facility] Immature granulocytes/100 WB C Auto (Bld)Ordered By: Safia Ruelas on 10-22-2024 Immature granulocytes/100 WBC (Bld) 1.400 % High 0.0-0.9 [facility] Comment on above: IG% - Immature Granu locytes (promyelocytes, myelocytes and metamyelocytes) > 1% indicates that a LEFT SHIFT is Present. MCV (mean corpuscular volume ) determinationOrdered By: Safia Ruelas on 10-22-2024 MCV (RBC) [Entitic vol] 91.9 fL 81-99 [facility] Mean corpuscular hemoglobin (MCH) determinationOrdered By: Safia Ruelas on 10-22-2024 MCH (RBC) [Entitic mass] 29.6 pg 27.0-32.0 [facility] Mean corpuscular hemoglobin concentration (MCHC) determinationOrdered By: Safia Ruelas on 10-22-2024 MCHC (RBC) [Mass/Vol] 32.2 g/dL 32-36 [facility] Mean platelet volume determi nationOrdered By: Safia Ruelas on 10-22-2024 Platelet mean volume (Bld) [Entitic vol] 11.2 fL 6.2-12.0 [facility] Monocyte percentageOrdered B y: Safia Ruelas on 10-22-2024 Monocytes/100 WBC (Bld) 7.7 % 0-10 [facility] Neutrophil percentageOrdered By: [facility] on 10-22-2024 Neutrophils/100 WBC (Bld) 52.1 % 47-70 [facility] Nucleated red blood cell per centageOrdered By: Safia Ruelas on 10-22-2024 Nucleated RBC/100 WBC (Bld) [Ratio] 0 % 0-5 [facility] Platelet countOrdered By: Balbir jean mariejosé antonio Ruelas on 10-22-2024 Platelets (Bld) [#/Vol] 334 10*3/uL 150-450 [facility] Potassium measurement (mass/ volume)Ordered By: Safia Ruelas on 10-22-2024 Potassium (Unsp spec) [Mass/Vol] 3.7 mmol/L 3.3-5.1 [facility] RBC Auto (Bld) [#/Vol]Ordere d By: Safia Ruelas on 10-22-2024 RBC (Bld) [#/Vol] 4.43 10*6/uL 4.2-5.4 [facility] Serum creatinine measurement (mass/volume)Ordered By: Safia Ruelas on 10-22-2024 Creatinine [Mass/Vol] 0.96 mg/dL 0.70-1.20 [facility] Serum glucose measurement (m ass/volume)Ordered By: Safia Ruelas on 10-22-2024 Glucose [Mass/Vol] 106 mg/dL High 70-99 [facility] Serum or plasma calcium dayna urement (mass/volume)Ordered By: Safia Ruelas on 10-22-2024 Calcium [Mass/Vol] 9.4 mg/dL 7.6-11.0 [facility] Serum or plasma urea nitroge n measurement (mass/volume)Ordered By: Safia Ruelas on 10-22-2024 Urea nitrogen [Mass/Vol] 28 mg/dL High 4-19 [facility] Sodium levelOrdered By: Leonides Ruelas on 10-22-2024 Sodium [Moles/Vol] 138 mmol/L 133-145 [facility] TSH DL <= 0.005 mIU/L QnOrde red By: Safia Ruelas on 10-22-2024 TSH Qn 4.630 uIU/mL High 0.300-4.200 [facility] White blood cell (WBC) count Ordered By: Safia Ruelas on 10-22-2024 WBC (Bld) [#/Vol] 8.8 10*3/uL 4.4-11.0 [facility] Absolute lymphocyte countOrd ered By: Safia Ruelas on 10-15-2024 Lymphocytes Auto (Unsp spec) [#/Vol] 3.04 10*3/uL 0.83-4.51 [facility] Absolute neutrophil countOrd ered By: Safia Ruelas on 10-15-2024 Neutrophils (Bld) [#/Vol] 4.3 10*3/uL 2.0-7.7 [facility] Anion gap in Serum or Plasma Ordered By: Safia Ruelas on 10-15-2024 Anion gap [Moles/Vol] 12 mmol/L 5-15 [facility] Automated lymphocyte count a s percentage of total leukocytesOrdered By: Safia Ruelas on 10-15-2024 Lymphocytes/100 WBC Auto (Unsp spec) 36.7 % 19-41 [facility] BUN/creatinine ratioOrdered By: Safia Ruelas on 10-15-2024 Urea nitrogen/Creatinine [Mass ratio] 36.5 mg/mg High 10-20 [facility] Basophil percentageOrdered B y: Safia Ruelas on 10-15-2024 Basophils/100 WBC (Bld) 0.7 % 0-1 [facility] Carbon dioxide, total [Moles /volume] in Central venous bloodOrdered By: Safia Ruelas on 10-15-2024 CO2 [Moles/Vol] 25.2 mmol/L 21.0-32.0 [facility] Chloride assayOrdered By: Balbir jean mariejosé antonio Ruelas on 10-15-2024 Chloride [Moles/Vol] 100 mmol/L 98-108 [facility] Eosinophil percentageOrdered By: Leonidesdelphosskye Ruelas on 10-15-2024 Eosinophils/100 WBC (Bld) 2.4 % 0-5 [facility] Erythrocyte distribution wid th ratioOrdered By: jean mariedelphosskye Ruelas on 10-15-2024 Erythrocyte distribution width (RBC) [Ratio] 13.5 % 11.6-14.6 [facility] Erythrocyte distribution wid th standard deviationOrdered By: [facility] Centers[facility]e Ruelas on 10-15-2024 Erythrocyte distribution width (RBC) [Ratio] 45.2 fl High 35.1-43.9 [facility] Glomerular filtration rate ( GFR) estimation/1.73 sq m using serum, plasma, or whole bOrdered By: Safia Ruelas on 10-15-2024 GFR/1.73 sq M.predicted among non-blacks MDRD (S/P/Bld) [Vol rate/Area] 71 mL/min/{1.73_m2} >60 [facility] Comment on above: mL/min/1.73m2 CKD-EP I Creatinine Equation (2020) Hematocrit Auto (Bld) [Volum e fraction]Ordered By: Safia Ruelas on 10-15-2024 Hematocrit (Bld) [Volume fraction] 40.3 % 37-47 [facility] Hemoglobin measurementOrdere d By: Safia Ruelas on 10-15-2024 Hemoglobin (Bld) [Mass/Vol] 13.3 g/dL 12.0-15.0 [facility] Immature granulocytes/100 WB C Auto (Bld)Ordered By: Safia Ruelas on 10-15-2024 Immature granulocytes/100 WBC (Bld) 0.400 % 0.0-0.9 [facility] Comment on above: IG% - Immature Granu locytes (promyelocytes, myelocytes and metamyelocytes) > 1% indicates that a LEFT SHIFT is Present. MCV (mean corpuscular volume ) determinationOrdered By: Safia Ruelas on 10-15-2024 MCV (RBC) [Entitic vol] 91.0 fL 81-99 [facility] Mean corpuscular hemoglobin (MCH) determinationOrdered By: Safia Ruelas on 10-15-2024 MCH (RBC) [Entitic mass] 30.0 pg 27.0-32.0 [facility] Mean corpuscular hemoglobin concentration (MCHC) determinationOrdered By: Safia Ruelas on 10-15-2024 MCHC (RBC) [Mass/Vol] 33.0 g/dL 32-36 [facility] Mean platelet volume determi nationOrdered By: Safia Ruelas on 10-15-2024 Platelet mean volume (Bld) [Entitic vol] 11.9 fL 6.2-12.0 [facility] Monocyte percentageOrdered B y: Safia Ruelas on 10-15-2024 Monocytes/100 WBC (Bld) 8.2 % 0-10 [facility] Neutrophil percentageOrdered By: Safia Ruelas on 10-15-2024 Neutrophils/100 WBC (Bld) 51.6 % 47-70 [facility] Nucleated red blood cell per centageOrdered By: Safia Ruelas on 10-15-2024 Nucleated RBC/100 WBC (Bld) [Ratio] 0 % 0-5 [facility] Platelet countOrdered By: Balbir Ruelas on 10-15-2024 Platelets (Bld) [#/Vol] 221 10*3/uL 150-450 [facility] Potassium measurement (mass/ volume)Ordered By: Safia Ruelas on 10-15-2024 Potassium (Unsp spec) [Mass/Vol] 3.8 mmol/L 3.3-5.1 [facility] RBC Auto (Bld) [#/Vol]Ordere d By: Safia Ruelas on 10-15-2024 RBC (Bld) [#/Vol] 4.43 10*6/uL 4.2-5.4 [facility] Serum creatinine measurement (mass/volume)Ordered By: Safia Ruelas on 10-15-2024 Creatinine [Mass/Vol] 0.83 mg/dL 0.70-1.20 [facility] Serum glucose measurement (m ass/volume)Ordered By: Safia Ruelas on 10-15-2024 Glucose [Mass/Vol] 68 mg/dL Low 70-99 [facility] Serum or plasma calcium dayna urement (mass/volume)Ordered By: Safia Ruelas on 10-15-2024 Calcium [Mass/Vol] 9.3 mg/dL 7.6-11.0 [facility] Serum or plasma urea nitroge n measurement (mass/volume)Ordered By: Safia Ruelas on 10-15-2024 Urea nitrogen [Mass/Vol] 30 mg/dL High 4-19 [facility] Sodium levelOrdered By: Leonides Ruelas on 10-15-2024 Sodium [Moles/Vol] 138 mmol/L 133-145 [facility] White blood cell (WBC) count Ordered By: Safia Ruelas on 10-15-2024 WBC (Bld) [#/Vol] 8.3 10*3/uL 4.4-11.0 [facility] Absolute lymphocyte countOrd ered By: Safia Ruelas on 10-08-2024 Lymphocytes Auto (Unsp spec) [#/Vol] 2.52 10*3/uL 0.83-4.51 [facility] Absolute neutrophil countOrd ered By: Safia Ruelas on 10-08-2024 Neutrophils (Bld) [#/Vol] 4.9 10*3/uL 2.0-7.7 [facility] Anion gap in Serum or Plasma Ordered By: Safia Ruelas on 10-08-2024 Anion gap [Moles/Vol] 14 mmol/L 5-15 [facility] Automated lymphocyte count a s percentage of total leukocytesOrdered By: Safia Ruelas on 10-08-2024 Lymphocytes/100 WBC Auto (Unsp spec) 29.4 % 19-41 [facility] BUN/creatinine ratioOrdered By: Safia Ruelas on 10-08-2024 Urea nitrogen/Creatinine [Mass ratio] 34.1 mg/mg High 10-20 [facility] Basophil percentageOrdered B y: Safia Ruelas on 10-08-2024 Basophils/100 WBC (Bld) 0.7 % 0-1 [facility] Carbon dioxide, total [Moles /volume] in Central venous bloodOrdered By: Safia Ruelas on 10-08-2024 CO2 [Moles/Vol] 24.0 mmol/L 21.0-32.0 [facility] Chloride assayOrdered By: Balbir Ruelas on 10-08-2024 Chloride [Moles/Vol] 100 mmol/L 98-108 [facility] Eosinophil percentageOrdered By: Safia Ruelas on 10-08-2024 Eosinophils/100 WBC (Bld) 2.6 % 0-5 [facility] Erythrocyte distribution wid th ratioOrdered By: Safia Ruelas on 10-08-2024 Erythrocyte distribution width (RBC) [Ratio] 13.2 % 11.6-14.6 [facility] Erythrocyte distribution wid th standard deviationOrdered By: Safia Ruelas on 10-08-2024 Erythrocyte distribution width (RBC) [Ratio] 45.3 fl High 35.1-43.9 [facility] Glomerular filtration rate ( GFR) estimation/1.73 sq m using serum, plasma, or whole bOrdered By: Safia Ruelas on 10-08-2024 GFR/1.73 sq M.predicted among non-blacks MDRD (S/P/Bld) [Vol rate/Area] 65 mL/min/{1.73_m2} >60 [facility] Comment on above: mL/min/1.73m2 CKD-EP I Creatinine Equation (2020) Hematocrit Auto (Bld) [Volum e fraction]Ordered By: Safia Ruelas on 10-08-2024 Hematocrit (Bld) [Volume fraction] 41.7 % 37-47 [facility] Hemoglobin measurementOrdere d By: Safia Ruelas on 10-08-2024 Hemoglobin (Bld) [Mass/Vol] 13.3 g/dL 12.0-15.0 [facility] Immature granulocytes/100 WB C Auto (Bld)Ordered By: jean mariedelphosskye Ruelas on 10-08-2024 Immature granulocytes/100 WBC (Bld) 0.400 % 0.0-0.9 [facility] Comment on above: IG% - Immature Granu locytes (promyelocytes, myelocytes and metamyelocytes) > 1% indicates that a LEFT SHIFT is Present. MCV (mean corpuscular volume ) determinationOrdered By: Safia Ruelas on 10-08-2024 MCV (RBC) [Entitic vol] 92.7 fL 81-99 [facility] Mean corpuscular hemoglobin (MCH) determinationOrdered By: Safia Ruelas on 10-08-2024 MCH (RBC) [Entitic mass] 29.6 pg 27.0-32.0 [facility] Mean corpuscular hemoglobin concentration (MCHC) determinationOrdered By: Safia Ruelas on 10-08-2024 MCHC (RBC) [Mass/Vol] 31.9 g/dL Low 32-36 [facility] Mean platelet volume determi nationOrdered By: Safia Ruelas on 10-08-2024 Platelet mean volume (Bld) [Entitic vol] 11.0 fL 6.2-12.0 [facility] Monocyte percentageOrdered B y: Safia Ruelas on 10-08-2024 Monocytes/100 WBC (Bld) 9.2 % 0-10 [facility] Neutrophil percentageOrdered By: Safia Ruelas on 10-08-2024 Neutrophils/100 WBC (Bld) 57.7 % 47-70 [facility] Nucleated red blood cell per centageOrdered By: Safia Ruelas on 10-08-2024 Nucleated RBC/100 WBC (Bld) [Ratio] 0 % 0-5 [facility] Platelet countOrdered By: Balbir Ruelas on 10-08-2024 Platelets (Bld) [#/Vol] 323 10*3/uL 150-450 [facility] Potassium measurement (mass/ volume)Ordered By: Safia Ruelas on 10-08-2024 Potassium (Unsp spec) [Mass/Vol] 4.1 mmol/L 3.3-5.1 [facility] RBC Auto (Bld) [#/Vol]Ordere d By: Safia Ruelas on 10-08-2024 RBC (Bld) [#/Vol] 4.50 10*6/uL 4.2-5.4 [facility] Serum creatinine measurement (mass/volume)Ordered By: Safia Ruelas on 10-08-2024 Creatinine [Mass/Vol] 0.90 mg/dL 0.70-1.20 [facility] Serum glucose measurement (m ass/volume)Ordered By: Safia Ruelas on 10-08-2024 Glucose [Mass/Vol] 82 mg/dL 70-99 [facility] Serum or plasma calcium dayna urement (mass/volume)Ordered By: Safia Ruelas on 10-08-2024 Calcium [Mass/Vol] 9.6 mg/dL 7.6-11.0 [facility] Serum or plasma urea nitroge n measurement (mass/volume)Ordered By: Safia Ruelas on 10-08-2024 Urea nitrogen [Mass/Vol] 31 mg/dL High 4-19 [facility] Sodium levelOrdered By: Leonides Ruelas on 10-08-2024 Sodium [Moles/Vol] 138 mmol/L 133-145 [facility] White blood cell (WBC) count Ordered By: Saifa Ruelas on 10-08-2024 WBC (Bld) [#/Vol] 8.6 10*3/uL 4.4-11.0 [facility] 12 Lead EKG performed by [facility] on 10-02-2024 12 Lead EKG performed by [facility] [address] [place] [address] 12 Lead EKG performed by [facility] 10/02/24920 MR#: [id number] Acct: [id number] Name: LINDSAY ACUNA Rep #: [id number] : 1945 78 From: Mj Benavides MD Attending Dr: Dr. Mj Benavides MD Status: DEP A MB Ordering Dr: Mj Benavides MD Date: 10/02/24 Location: [facility] Sex: F C Admitted: BMS/12 Lead EKG performed by [facility] ECG Report Interpretation ---Atrial fibrillation -irregular conduction -Old anterior infarct. ABNORMAL Electronically signed on 10/02/2024 at 16:06 by Mj Benavides [employer] Version [id number] 10/02/24 1608 Date Mj Benavides MD CC: Dr. Kameron Caruso MD Date Dictated: 10/02/24920 Date Transcribed: 10/02/24920 Nanotechnologist: [place] Signed Normal [facility] Cardiology Visit Reporton Cardiology Visit Report [facility] [address] [place] [address] OFFICE VISIT Date of Service: 10/02/24 MR#: [id number] Acct: [id number] Name: LINDSAY ACUNA Rep #: [id number] : 1945 Provider: Dr. Mj Benavides MD Age/Sex: 78/F Location: [facility] Status: Signed HPI HPI History of [...] d/t W/C bound Intake Visit Reasons: AFIB ([facility]) Rebrander Required: No Accompanied by: Significant Other Is [...] normal, nasal (more content not included)... Normal [facility] Absolute lymphocyte countOrd ered By: Safia Ruelas on 10-01-2024 Lymphocytes Auto (Unsp spec) [#/Vol] 2.45 10*3/uL 0.83-4.51 [facility] Absolute neutrophil countOrd ered By: Safia Griderbonimelanie on 10-01-2024 Neutrophils (Bld) [#/Vol] 6.5 10*3/uL 2.0-7.7 [facility] Anion gap in Serum or Plasma Ordered By: Safia Ruelas on 10-01-2024 Anion gap [Moles/Vol] 12 mmol/L 5- [facility] Automated lymphocyte count a s percentage of total leukocytesOrdered By: Safia Ruelas on 10-01-2024 Lymphocytes/100 WBC Auto (Unsp spec) 23.1 % 19- [facility] BUN/creatinine ratioOrdered By: Safia Ruelas on 10-01-2024 Urea nitrogen/Creatinine [Mass ratio] 24.9 mg/mg High 10- [facility] Basophil percentageOrdered B y: Safia Ruelas on 10-01-2024 Basophils/100 WBC (Bld) 0.5 % 0-1 [facility] Carbon dioxide, total [Moles /volume] in Central venous bloodOrdered By: Safia Ruelas on 10-01-2024 CO2 [Moles/Vol] 24.4 mmol/L 21.0-32.0 [facility] Chloride assayOrdered By: Balbir Ruelas on 10-01-2024 Chloride [Moles/Vol] 99 mmol/L 98-108 [facility] Eosinophil percentageOrdered By: sherry Ruelas on 10-01-2024 Eosinophils/100 WBC (Bld) 2.0 % 0-5 [facility] Erythrocyte distribution wid th ratioOrdered By: Safia Ruelas on 10-01-2024 Erythrocyte distribution width (RBC) [Ratio] 13.5 % 11.6-14.6 [facility] Erythrocyte distribution wid th standard deviationOrdered By: Safia Ruelas on 10-01-2024 Erythrocyte distribution width (RBC) [Ratio] 46.2 fl High 35.1-43.9 [facility] Glomerular filtration rate ( GFR) estimation/1.73 sq m using serum, plasma, or whole bOrdered By: Safia Ruelas on 10-01-2024 GFR/1.73 sq M.predicted among non-blacks MDRD (S/P/Bld) [Vol rate/Area] 63 mL/min/{1.73_m2} >60 [facility] Comment on above: mL/min/1.73m2 CKD-EP I Creatinine Equation (2020) Hematocrit Auto (Bld) [Volum e fraction]Ordered By: Safia Ruelas on 10-01-2024 Hematocrit (Bld) [Volume fraction] 38.7 % 37-47 [facility] Hemoglobin measurementOrdere d By: Safia Ruelas on 10-01-2024 Hemoglobin (Bld) [Mass/Vol] 12.5 g/dL 12.0-15.0 [facility] Immature granulocytes/100 WB C Auto (Bld)Ordered By: Safia Ruelas on 10-01-2024 Immature granulocytes/100 WBC (Bld) 0.800 % 0.0-0.9 [facility] Comment on above: IG% - Immature Granu locytes (promyelocytes, myelocytes and metamyelocytes) > 1% indicates that a LEFT SHIFT is Present. MCV (mean corpuscular volume ) determinationOrdered By: Safia Ruelas on 10-01-2024 MCV (RBC) [Entitic vol] 93.3 fL 81-99 [facility] Mean corpuscular hemoglobin (MCH) determinationOrdered By: Safia Ruelas on 10-01-2024 MCH (RBC) [Entitic mass] 30.1 pg 27.0-32.0 [facility] Mean corpuscular hemoglobin concentration (MCHC) determinationOrdered By: Leonidesdelphosskye Ruelas on 10-01-2024 MCHC (RBC) [Mass/Vol] 32.3 g/dL 32-36 [facility] Mean platelet volume determi nationOrdered By: Safia Ruelas on 10-01-2024 Platelet mean volume (Bld) [Entitic vol] 11.7 fL 6.2-12.0 [facility] Monocyte percentageOrdered B y: Safia Ruelas on 10-01-2024 Monocytes/100 WBC (Bld) 12.7 % High 0-10 [facility] Neutrophil percentageOrdered By: Safia Cheoquyen on 10-01-2024 Neutrophils/100 WBC (Bld) 60.9 % 47-70 [facility] Nucleated red blood cell per centageOrdered By: Safia Cheoquyen on 10-01-2024 Nucleated RBC/100 WBC (Bld) [Ratio] 0 % 0-5 [facility] Platelet countOrdered By: Balbir sherry Cheoquyen on 10-01-2024 Platelets (Bld) [#/Vol] 371 10*3/uL 150-450 [facility] Potassium measurement (mass/ volume)Ordered By: Safia Griderbonimelanie on 10-01-2024 Potassium (Unsp spec) [Mass/Vol] 4.2 mmol/L 3.3-5.1 [facility] RBC Auto (Bld) [#/Vol]Ordere d By: Safia Ruelas on 10-01-2024 RBC (Bld) [#/Vol] 4.15 10*6/uL Low 4.2-5.4 [facility] Serum creatinine measurement (mass/volume)Ordered By: Balbirsherry Griderbonimelanie on 10-01-2024 Creatinine [Mass/Vol] 0.93 mg/dL 0.70-1.20 [facility] Serum glucose measurement (m ass/volume)Ordered By: Balbirjean mariedesireeskye Griderbonimelanie on 10-01-2024 Glucose [Mass/Vol] 93 mg/dL 70-99 [facility] Serum or plasma calcium dayna urement (mass/volume)Ordered By: Balbirjean mariejosé antonio Cheobonimelanie on 10-01-2024 Calcium [Mass/Vol] 9.5 mg/dL 7.6-11.0 [facility] Serum or plasma urea nitroge n measurement (mass/volume)Ordered By: Safia Griderbonimelanie on 10-01-2024 Urea nitrogen [Mass/Vol] 23 mg/dL High 4-19 [facility] Sodium levelOrdered By: Leonides josé antonio Jessenia on 10-01-2024 Sodium [Moles/Vol] 135 mmol/L 133-145 [facility] White blood cell (WBC) count Ordered By: Leonidesdesireeskye Ruelas on 10-01-2024 WBC (Bld) [#/Vol] 10.6 10*3/uL 4.4-11.0 [facility] Clostridium difficile detect ion by polymerase chain reactionOrdered By: Safia Ruelas on 09-29-2024 C. difficile DNA CHCUKY+probe Ql (Unsp spec) [facility] Absolute lymphocyte countOrd ered By: Safia Ruelas on 09-24-2024 Lymphocytes Auto (Unsp spec) [#/Vol] 2.72 10*3/uL 0.83-4.51 [facility] Absolute neutrophil countOrd ered By: Safia Griderbonimelanie on 09-24-2024 Neutrophils (Bld) [#/Vol] 6.3 10*3/uL 2.0-7.7 [facility] Anion gap in Serum or Plasma Ordered By: Safia Ruelas on 09-24-2024 Anion gap [Moles/Vol] 12 mmol/L 5-15 [facility] Automated lymphocyte count a s percentage of total leukocytesOrdered By: Safia Ruelas on 09-24-2024 Lymphocytes/100 WBC Auto (Unsp spec) 26.3 % 19-41 [facility] BUN/creatinine ratioOrdered By: Safia Ruelas on 09-24-2024 Urea nitrogen/Creatinine [Mass ratio] 36.4 mg/mg High 10-20 [facility] Basophil percentageOrdered B y: Safia Ruelas on 09-24-2024 Basophils/100 WBC (Bld) 0.7 % 0-1 [facility] Carbon dioxide, total [Moles /volume] in Central venous bloodOrdered By: Safia Ruelas on 09-24-2024 CO2 [Moles/Vol] 24.1 mmol/L 21.0-32.0 [facility] Chloride assayOrdered By: Balbir Ruelas on 09-24-2024 Chloride [Moles/Vol] 100 mmol/L 98-108 [facility] Eosinophil percentageOrdered By: Safia Ruelas on 09-24-2024 Eosinophils/100 WBC (Bld) 2.7 % 0-5 [facility] Erythrocyte distribution wid th ratioOrdered By: Safia Ruelas on 09-24-2024 Erythrocyte distribution width (RBC) [Ratio] 13.6 % 11.6-14.6 [facility] Erythrocyte distribution wid th standard deviationOrdered By: Safia Ruelas on 09-24-2024 Erythrocyte distribution width (RBC) [Ratio] 47.1 fl High 35.1-43.9 [facility] Glomerular filtration rate ( GFR) estimation/1.73 sq m using serum, plasma, or whole bOrdered By: Safia Ruelas on 09-24-2024 GFR/1.73 sq M.predicted among non-blacks MDRD (S/P/Bld) [Vol rate/Area] 62 mL/min/{1.73_m2} >60 [facility] Comment on above: mL/min/1.73m2 CKD-EP I Creatinine Equation (2020) Hematocrit Auto (Bld) [Volum e fraction]Ordered By: Safia Ruelas on 09-24-2024 Hematocrit (Bld) [Volume fraction] 41.2 % 37-47 [facility] Hemoglobin measurementOrdere d By: Safia Ruelas on 09-24-2024 Hemoglobin (Bld) [Mass/Vol] 13.0 g/dL 12.0-15.0 [facility] Immature granulocytes/100 WB C Auto (Bld)Ordered By: Safia Ruelas on 09-24-2024 Immature granulocytes/100 WBC (Bld) 1.000 % High 0.0-0.9 [facility] Comment on above: IG% - Immature Granu locytes (promyelocytes, myelocytes and metamyelocytes) > 1% indicates that a LEFT SHIFT is Present. MCV (mean corpuscular volume ) determinationOrdered By: Safia Ruelas on 09-24-2024 MCV (RBC) [Entitic vol] 94.3 fL 81-99 [facility] Mean corpuscular hemoglobin (MCH) determinationOrdered By: Safia Ruelas on 09-24-2024 MCH (RBC) [Entitic mass] 29.7 pg 27.0-32.0 [facility] Mean corpuscular hemoglobin concentration (MCHC) determinationOrdered By: Safia Ruelas on 09-24-2024 MCHC (RBC) [Mass/Vol] 31.6 g/dL Low 32-36 [facility] Mean platelet volume determi nationOrdered By: Safia Ruelas on 09-24-2024 Platelet mean volume (Bld) [Entitic vol] 11.3 fL 6.2-12.0 [facility] Monocyte percentageOrdered B y: Safia Ruelas on 09-24-2024 Monocytes/100 WBC (Bld) 8.9 % 0-10 [facility] Neutrophil percentageOrdered By: Leonidesdelphosskye Ruelas on 09-24-2024 Neutrophils/100 WBC (Bld) 60.4 % 47-70 [facility] Nucleated red blood cell per centageOrdered By: Safia Ruelas on 09-24-2024 Nucleated RBC/100 WBC (Bld) [Ratio] 0 % 0-5 [facility] Platelet countOrdered By: Balbir Ruelas on 09-24-2024 Platelets (Bld) [#/Vol] 441 10*3/uL 150-450 [facility] Potassium measurement (mass/ volume)Ordered By: Safia Ruelas on 09-24-2024 Potassium (Unsp spec) [Mass/Vol] 4.3 mmol/L 3.3-5.1 [facility] RBC Auto (Bld) [#/Vol]Ordere d By: Safia Ruelas on 09-24-2024 RBC (Bld) [#/Vol] 4.37 10*6/uL 4.2-5.4 [facility] Serum creatinine measurement (mass/volume)Ordered By: Safia Ruelas on 09-24-2024 Creatinine [Mass/Vol] 0.93 mg/dL 0.70-1.20 [facility] Serum glucose measurement (m ass/volume)Ordered By: Safia Ruelas on 09-24-2024 Glucose [Mass/Vol] 48 mg/dL Low 70-99 [facility] Serum or plasma calcium dayna urement (mass/volume)Ordered By: Balbirjean mariejosé antonio Cheobonimelanie on 09-24-2024 Calcium [Mass/Vol] 9.5 mg/dL 7.6-11.0 [facility] Serum or plasma urea nitroge n measurement (mass/volume)Ordered By: Safia Ruelas on 09-24-2024 Urea nitrogen [Mass/Vol] 34 mg/dL High 4-19 [facility] Sodium levelOrdered By: Leonides chou Cheobonimelanie on 09-24-2024 Sodium [Moles/Vol] 136 mmol/L 133-145 [facility] White blood cell (WBC) count Ordered By: Safia Ruelas on 09-24-2024 WBC (Bld) [#/Vol] 10.4 10*3/uL 4.4-11.0 [facility] Absolute lymphocyte countOrd ered By: Safia Ruelas on 09-17-2024 Lymphocytes Auto (Unsp spec) [#/Vol] 2.52 10*3/uL 0.83-4.51 [facility] Absolute neutrophil countOrd ered By: Safia Ruelas on 09-17-2024 Neutrophils (Bld) [#/Vol] 5.8 10*3/uL 2.0-7.7 [facility] Anion gap in Serum or Plasma Ordered By: Safia Ruelas on 09-17-2024 Anion gap [Moles/Vol] 12 mmol/L 5-15 [facility] Automated lymphocyte count a s percentage of total leukocytesOrdered By: Safia Ruelas on 09-17-2024 Lymphocytes/100 WBC Auto (Unsp spec) 26.3 % 19-41 [facility] BUN/creatinine ratioOrdered By: Balbirsherry Ruelas on 09-17-2024 Urea nitrogen/Creatinine [Mass ratio] 45.9 mg/mg High 10-20 [facility] Basophil percentageOrdered B y: Safia Ruelas on 09-17-2024 Basophils/100 WBC (Bld) 0.6 % 0-1 [facility] Calculated very low density lipoprotein (VLDL) cholesterol measurementOrdered By: Safia Ruelas on 09-17-2024 Calculated very low density lipoprotein (VLDL) cholesterol measurement 22 mg/dL 5-40 [facility] Carbon dioxide, total [Moles /volume] in Central venous bloodOrdered By: Safia Ruelas on 09-17-2024 CO2 [Moles/Vol] 24.5 mmol/L 21.0-32.0 [facility] Chloride assayOrdered By: Balbir Ruelas on 09-17-2024 Chloride [Moles/Vol] 98 mmol/L 98-108 [facility] Eosinophil percentageOrdered By: Safia Ruelas on 09-17-2024 Eosinophils/100 WBC (Bld) 3.2 % 0-5 [facility] Erythrocyte distribution wid th ratioOrdered By: jean mariedelphosskye Ruelas on 09-17-2024 Erythrocyte distribution width (RBC) [Ratio] 13.4 % 11.6-14.6 [facility] Erythrocyte distribution wid th standard deviationOrdered By: Safia Ruelas on 09-17-2024 Erythrocyte distribution width (RBC) [Ratio] 45.4 fl High 35.1-43.9 [facility] Glomerular filtration rate ( GFR) estimation/1.73 sq m using serum, plasma, or whole bOrdered By: Safia Ruelas on 09-17-2024 GFR/1.73 sq M.predicted among non-blacks MDRD (S/P/Bld) [Vol rate/Area] 69 mL/min/{1.73_m2} >60 [facility] Comment on above: mL/min/1.73m2 CKD-EP I Creatinine Equation (2020) Hematocrit Auto (Bld) [Volum e fraction]Ordered By: Safia Ruelas on 09-17-2024 Hematocrit (Bld) [Volume fraction] 38.8 % 37-47 [facility] Hemoglobin measurementOrdere d By: Safia Ruelas on 09-17-2024 Hemoglobin (Bld) [Mass/Vol] 12.6 g/dL 12.0-15.0 [facility] Immature granulocytes/100 WB C Auto (Bld)Ordered By: Safia Ruelas on 09-17-2024 Immature granulocytes/100 WBC (Bld) 0.700 % 0.0-0.9 [facility] Comment on above: IG% - Immature Granu locytes (promyelocytes, myelocytes and metamyelocytes) > 1% indicates that a LEFT SHIFT is Present. LDL calc ser/plasOrdered By: Safia Ruelas on 09-17-2024 Cholesterol in LDL [Mass/Vol] 120 mg/dL [facility] Comment on above: Nspvpxbuve=148-190 m g/dL & Higher Eizq=959 mg/dL or greater MCV (mean corpuscular volume ) determinationOrdered By: Safia Ruelas on 09-17-2024 MCV (RBC) [Entitic vol] 91.7 fL 81-99 [facility] Mean corpuscular hemoglobin (MCH) determinationOrdered By: Leonidesdelphosskye Ruelas on 09-17-2024 MCH (RBC) [Entitic mass] 29.8 pg 27.0-32.0 [facility] Mean corpuscular hemoglobin concentration (MCHC) determinationOrdered By: Safia Ruelas on 09-17-2024 MCHC (RBC) [Mass/Vol] 32.5 g/dL 32-36 [facility] Mean platelet volume determi nationOrdered By: Safia Ruelas on 09-17-2024 Platelet mean volume (Bld) [Entitic vol] 11.4 fL 6.2-12.0 [facility] Monocyte percentageOrdered B y: Safia Ruelas on 09-17-2024 Monocytes/100 WBC (Bld) 8.5 % 0-10 [facility] Neutrophil percentageOrdered By: jean mariedelphossyke Ruelas on 09-17-2024 Neutrophils/100 WBC (Bld) 60.7 % 47-70 [facility] Nucleated red blood cell per centageOrdered By: Safia Ruelas on 09-17-2024 Nucleated RBC/100 WBC (Bld) [Ratio] 0 % 0-5 [facility] Platelet countOrdered By: Balbir Ruelas on 09-17-2024 Platelets (Bld) [#/Vol] 311 10*3/uL 150-450 [facility] Potassium measurement (mass/ volume)Ordered By: Safia Ruelas on 09-17-2024 Potassium (Unsp spec) [Mass/Vol] 4.1 mmol/L 3.3-5.1 [facility] RBC Auto (Bld) [#/Vol]Ordere d By: Safia Ruelas on 09-17-2024 RBC (Bld) [#/Vol] 4.23 10*6/uL 4.2-5.4 [facility] Screening total cholesterol/ high density lipoprotein (HDL) cholesterol ratioOrdered By: Safia Ruelas on 09-17-2024 Cholesterol.total/Alta sterol in HDL [Mass ratio] 5.38 {ratio} [facility] Serum creatinine measurement (mass/volume)Ordered By: Safia Ruelas on 09-17-2024 Creatinine [Mass/Vol] 0.86 mg/dL 0.70-1.20 [facility] Serum glucose measurement (m ass/volume)Ordered By: Safia Ruelas on 09-17-2024 Glucose [Mass/Vol] 216 mg/dL High 70-99 [facility] Serum or plasma calcium dayna urement (mass/volume)Ordered By: Safia Ruelas on 09-17-2024 Calcium [Mass/Vol] 9.4 mg/dL 7.6-11.0 [facility] Serum or plasma cholesterol in HDL measurement (mass/volume)Ordered By: Safia Ruelas on 09-17-2024 Cholesterol in HDL [Mass/Vol] 33 mg/dL Low >40 [facility] Comment on above: National Cholesterol Education Program (NCEP) guidelines:<40 mg/dL: Low HDL-cholesterol (major risk factor for CHD)>= 60 mg/dL: High HDL-cholesterol (negative risk factor for CHD)HDL-cholesterol is affected by a number of factors, e.g. smoking, exercise, hormones, sex and age. Serum or plasma cholesterol measurement (mass/volume)Ordered By: Safia Ruelas on 09-17-2024 Cholesterol [Mass/Vol] 175 mg/dL <201 [facility] Comment on above: Cholesterol level, D esirable <200 mg/dLBorderline high cholesterol 200-239 mg/dLHigh cholesterol >=240 mg/dLRecommendations of the NCEP Adult Treatment Panel for the following risk-cutoff thresholds for the [place] population. Serum or plasma urea nitroge n measurement (mass/volume)Ordered By: Safia Ruelas on 09-17-2024 Urea nitrogen [Mass/Vol] 39 mg/dL High 4-19 [facility] Sodium levelOrdered By: Leonides jiméneztadmelanie Ruelas on 09-17-2024 Sodium [Moles/Vol] 134 mmol/L 133-145 [facility] TSH DL <= 0.005 mIU/L QnOrde red By: Safia Ruelas on 09-17-2024 TSH Qn 3.500 uIU/mL 0.300-4.200 [facility] Triglycerides measurementOrd ered By: Safia Ruelas on 09-17-2024 Triglyceride [Mass/Vol] 111 mg/dL <199 [facility] Comment on above: The drugs N-Acetylcy steine and Metamizole may falsely depress this assay. Normal range: <150 mg/dLBorderline High: 150-199 mg/dLHigh: 200-499 mg/dLVery High: >500 mg/dL White blood cell (WBC) count Ordered By: Safia Ruelas on 09-17-2024 WBC (Bld) [#/Vol] 9.6 10*3/uL 4.4-11.0 [facility] Absolute lymphocyte countOrd ered By: Safia Ruelas on 09-10-2024 Lymphocytes Auto (Unsp spec) [#/Vol] 2.11 10*3/uL 0.83-4.51 [facility] Absolute neutrophil countOrd ered By: Safia Ruelas on 09-10-2024 Neutrophils (Bld) [#/Vol] 8.1 10*3/uL High 2.0-7.7 [facility] Anion gap in Serum or Plasma Ordered By: Safia Ruelas on 09-10-2024 Anion gap [Moles/Vol] 13 mmol/L 5-15 [facility] Automated lymphocyte count a s percentage of total leukocytesOrdered By: Safia Ruelas on 09-10-2024 Lymphocytes/100 WBC Auto (Unsp spec) 17.9 % Low 19-41 [facility] BUN/creatinine ratioOrdered By: Safia Ruelas on 09-10-2024 Urea nitrogen/Creatinine [Mass ratio] 29.1 mg/mg High 10-20 [facility] Basophil percentageOrdered B y: Safia Ruelas on 09-10-2024 Basophils/100 WBC (Bld) 0.3 % 0-1 [facility] Bilirubin, totalOrdered By: Safia Cheobonimelanie on 09-10-2024 Bilirubin [Mass/Vol] 0.55 mg/dL 0.00-1.30 [facility] Carbon dioxide, total [Moles /volume] in Central venous bloodOrdered By: Balbirjean mariedesireeskye Griderbonimelanie on 09-10-2024 CO2 [Moles/Vol] 23.6 mmol/L 21.0-32.0 [facility] Chloride assayOrdered By: Balbir sherry Cheobonimelanie on 09-10-2024 Chloride [Moles/Vol] 97 mmol/L Low 98-108 [facility] Eosinophil percentageOrdered By: Safia Ruelas on 09-10-2024 Eosinophils/100 WBC (Bld) 0.5 % 0-5 [facility] Erythrocyte distribution wid th ratioOrdered By: Balbirjean mariejosé antonio Westonmelanie on 09-10-2024 Erythrocyte distribution width (RBC) [Ratio] 13.4 % 11.6-14.6 [facility] Erythrocyte distribution wid th standard deviationOrdered By: Leonidesdesireeskye Griderbonimelanie on 09-10-2024 Erythrocyte distribution width (RBC) [Ratio] 45.2 fl High 35.1-43.9 [facility] Glomerular filtration rate ( GFR) estimation/1.73 sq m using serum, plasma, or whole bOrdered By: Balbirjean mariedesireeskye Griderbonimelanie on 09-10-2024 GFR/1.73 sq M.predicted among non-blacks MDRD (S/P/Bld) [Vol rate/Area] 59 mL/min/{1.73_m2} Low >60 [facility] Comment on above: mL/min/1.73m2 CKD-EP I Creatinine Equation (2020) Hematocrit Auto (Bld) [Volum e fraction]Ordered By: Safia Ruelas on 09-10-2024 Hematocrit (Bld) [Volume fraction] 41.8 % 37-47 [facility] Hemoglobin measurementOrdere d By: Safia Ruelas on 09-10-2024 Hemoglobin (Bld) [Mass/Vol] 13.4 g/dL 12.0-15.0 [facility] Immature granulocytes/100 WB C Auto (Bld)Ordered By: Safia Ruelas on 09-10-2024 Immature granulocytes/100 WBC (Bld) 0.800 % 0.0-0.9 [facility] Comment on above: IG% - Immature Granu locytes (promyelocytes, myelocytes and metamyelocytes) > 1% indicates that a LEFT SHIFT is Present. Laboratory - Chemistry and C hemistry - challengeOrdered By: Safia Ruelas on 09-10-2024 AST [Catalytic activity/Vol] 21 U/L <32 [facility] MCV (mean corpuscular volume ) determinationOrdered By: Safia Ruelas on 09-10-2024 MCV (RBC) [Entitic vol] 92.5 fL 81-99 [facility] Mean corpuscular hemoglobin (MCH) determinationOrdered By: Safia Ruelas on 09-10-2024 MCH (RBC) [Entitic mass] 29.6 pg 27.0-32.0 [facility] Mean corpuscular hemoglobin concentration (MCHC) determinationOrdered By: Safia Ruelas on 09-10-2024 MCHC (RBC) [Mass/Vol] 32.1 g/dL 32-36 [facility] Mean platelet volume determi nationOrdered By: Safia Ruelas on 09-10-2024 Platelet mean volume (Bld) [Entitic vol] 12.6 fL High 6.2-12.0 [facility] Monocyte percentageOrdered B y: Safia Ruelas on 09-10-2024 Monocytes/100 WBC (Bld) 12.3 % High 0-10 [facility] Neutrophil percentageOrdered By: Safia Ruelas on 09-10-2024 Neutrophils/100 WBC (Bld) 68.2 % 47-70 [facility] No Panel InformationOrdered By: Safia Ruelas on 09-10-2024 21 U/L <32 [facility] Nucleated red blood cell per centageOrdered By: Safia Ruelas on 09-10-2024 Nucleated RBC/100 WBC (Bld) [Ratio] 0 % 0-5 [facility] Platelet countOrdered By: Balbir Ruelas on 09-10-2024 Platelets (Bld) [#/Vol] 190 10*3/uL 150-450 [facility] Potassium measurement (mass/ volume)Ordered By: Safia Ruelas on 09-10-2024 Potassium (Unsp spec) [Mass/Vol] 4.3 mmol/L 3.3-5.1 [facility] RBC Auto (Bld) [#/Vol]Ordere d By: Safia Ruelas on 09-10-2024 RBC (Bld) [#/Vol] 4.52 10*6/uL 4.2-5.4 [facility] Serum creatinine measurement (mass/volume)Ordered By: Safia Ruelas on 09-10-2024 Creatinine [Mass/Vol] 0.98 mg/dL 0.70-1.20 [facility] Serum globulin measurementOr dered By: Safia Ruelas on 09-10-2024 Globulin (S) [Mass/Vol] 3.3 g/dL 2.2-4.2 [facility] Serum glucose measurement (m ass/volume)Ordered By: Safia Ruelas on 09-10-2024 Glucose [Mass/Vol] 181 mg/dL High 70-99 [facility] Serum or plasma alanine raymundo otransferase (ALT) measurementOrdered By: Safia Ruelas 09-10-2024 ALT [Catalytic activity/Vol] 26 U/L <35 [facility] Serum or plasma albumin dayna urement (mass/volume)Ordered By: Safia Ruelas 09-10-2024 Albumin [Mass/Vol] 3.4 g/dL 3.4-4.8 [facility] Serum or plasma albumin/glob ulin mass ratioOrdered By: Balbirsherry Ruelas on 09-10-2024 Albumin/Globulin [Mass ratio] 1.0 {ratio} 0.9-2.4 [facility] Serum or plasma alkaline hannah sphatase measurementOrdered By: Balbirsherry Griderbonimelanie on 09-10-2024 ALP [Catalytic activity/Vol] 114 U/L High 35-104 [facility] Serum or plasma calcium dayna urement (mass/volume)Ordered By: Safia Ruelas on 09-10-2024 Calcium [Mass/Vol] 9.3 mg/dL 7.6-11.0 [facility] Serum or plasma urea nitroge n measurement (mass/volume)Ordered By: Balbirsherry Ruelas on 09-10-2024 Urea nitrogen [Mass/Vol] 29 mg/dL High 4-19 [facility] Sodium levelOrdered By: Leonides josé antonio Jessenia on 09-10-2024 Sodium [Moles/Vol] 133 mmol/L 133-145 [facility] Total proteinOrdered By: Augustomelanie ervin Jessenia on 09-10-2024 Protein [Mass/Vol] 6.7 g/dL 5.9-8.4 [facility] White blood cell (WBC) count Ordered By: Balbirjean mariedesireeskye Ruelas on 09-10-2024 WBC (Bld) [#/Vol] 11.8 10*3/uL High 4.4-11.0 [facility] LABORATORYOrdered By: Abigail Smith on 09-09-2024 Glucose [Mass/Vol] 212 mg/dL High 82 - 115 mg/dL [facility] Work Phone: Glucose [Mass/Vol] 226 mg/dL High 82 - 115 mg/dL [facility] Work Phone: LABORATORYOrdered By: Zoila Zarco on 09-08-2024 Glucose [Mass/Vol] 149 mg/dL High 82 - 115 mg/dL [facility] Work Phone: LABORATORYOrdered By: Rob Palmer on 09-08-2024 Blood Glucose Testing Reason Routine (09/08/24 6:16 PM) [employer] Work Phone: Blood Glucose Testing Reason Routine (09/08/24 11:58 AM) [facility] Work Phone: LABORATORYOrdered By: Rob Palmer on 09-07-2024 Blood Glucose Testing Reason Routine (09/07/24 4:46 PM) [facility] Work Phone: .Auto Diffon 09-03-2024 Basophil, Absolute 0.1 10 3/mcL Normal 0.0-0.3 [facility] Comment on above: Performed By: #### A DIFF, CBC, ANEU, GFR, BMP #### [address] [address] Basophils/100 WBC (Bld) 1.0 % Normal 0.0-2.5 [facility] Comment on above: Performed By: #### A DIFF, CBC, ANEU, GFR, BMP #### [address] [address] Eosinophil, Absolute 0.2 10 3/mcL Normal 0.0-0.7 [facility] Comment on above: Performed By: #### A DIFF, CBC, ANEU, GFR, BMP #### [address] [address] Eosinophils/100 WBC (Bld) 3.2 % Normal 0.0-6.0 [facility] Comment on above: Performed By: #### A DIFF, CBC, ANEU, GFR, BMP #### [address] [address] Lymphocyte, Absolute 2.0 10 3/mcL Normal 0.9-4.3 [facility] Comment on above: Performed By: #### A DIFF, CBC, ANEU, GFR, BMP #### [address] [address] Lymphocytes/100 WBC (Bld) 26.6 % Normal 20.0-40.0 [facility] Comment on above: Performed By: #### A DIFF, CBC, ANEU, GFR, BMP #### [address] [address] Monocyte, Absolute 0.7 10 3/mcL Normal 0.1-1.4 [facility] Comment on above: Performed By: #### A DIFF, CBC, ANEU, GFR, BMP #### [address] [address] Monocytes/100 WBC (Bld) 9.7 % Normal 2.0-13.0 [facility] Comment on above: Performed By: #### A DIFF, CBC, ANEU, GFR, BMP #### [address] [address] Neutrophils/100 WBC (Bld) 59.5 % Normal 50.0-75.0 [facility] Comment on above: Performed By: #### A DIFF, CBC, ANEU, GFR, BMP #### [address] [address] .GFRon 09-03-2024 Estimated Glomerular Filtration Rate 57 ml/min/1.73sqm Normal [facility] Comment on above: Result Comment: [...] A DIFF, CBC, ANEU, GFR, BMP #### [address] [address] .NEUABSon 09-03-2024 Neutrophil, Absolute 4.5 10 3/mcL Normal 2.3-8.1 [facility] Comment on above: Performed By: #### A DIFF, CBC, ANEU, GFR, BMP #### [address] [address] B12on 09-03-2024 Cobalamin (Vitamin B12) [Mass/Vol] 834 pg/mL Normal 211-911 [facility] Comment on above: Performed By: #### A DIFF, CBC, ANEU, GFR, BMP #### [place] [address] CBCon 09-03-2024 Erythrocyte distribution width (RBC) [Ratio] 14.7 % Normal 11.5-15.5 [facility] Comment on above: Performed By: #### A DIFF, CBC, ANEU, GFR, BMP #### [place] [address] Hematocrit (Bld) [Volume fraction] 39.7 % Normal 34.0-46.0 [facility] Comment on above: Performed By: #### A DIFF, CBC, ANEU, GFR, BMP #### [place] [address] Hgb 13.2 G/dL Normal 12.0-16.0 [facility] Comment on above: Performed By: #### A DIFF, CBC, ANEU, GFR, BMP #### [place] [address] MCH (RBC) [Entitic mass] 30.6 pg Normal 27.0-33.0 [facility] Comment on above: Performed By: #### A DIFF, CBC, ANEU, GFR, BMP #### [place] [address] MCHC 33.3 G/dL Normal 32.0-36.0 [facility] Comment on above: Performed By: #### A DIFF, CBC, ANEU, GFR, BMP #### [place] [address] MCV (RBC) [Entitic vol] 91.9 fL Normal 80.0-99.0 [facility] Comment on above: Performed By: #### A DIFF, CBC, ANEU, GFR, BMP #### [place] [id number] Platelet 228 10 3/mcL Normal 150-450 [facility] Comment on above: Performed By: #### A DIFF, CBC, ANEU, GFR, BMP #### [place] [address] Platelet mean volume (Bld) [Entitic vol] 10.1 fL Normal 6.6-10.5 [facility] Comment on above: Performed By: #### A DIFF, CBC, ANEU, GFR, BMP #### [place] [address] RBC 4.32 10 6/mcL Normal 4.10-5.30 [facility] Comment on above: Performed By: #### A DIFF, CBC, ANEU, GFR, BMP #### [place] [address] WBC 7.6 10 3/mcL Normal 4.5-10.8 [facility] Comment on above: Performed By: #### A DIFF, CBC, ANEU, GFR, BMP #### [place] [address] CMPon 09-03-2024 Albumin Level 3.0 G/dL Low 3.2-4.8 [facility] Comment on above: Performed By: #### A DIFF, CBC, ANEU, GFR, BMP #### [place] [address] Albumin/Globulin [Mass ratio] 0.9 {ratio} Normal 0.9-1.6 [facility] Comment on above: Performed By: #### A DIFF, CBC, ANEU, GFR, BMP #### [place] [address] ALP [Catalytic activity/Vol] 115 U/L Normal 38-126 [facility] Comment on above: Performed By: #### A DIFF, CBC, ANEU, GFR, BMP #### [place] [address] ALT [Catalytic activity/Vol] 37 U/L Normal 10-49 [facility] Comment on above: Performed By: #### A DIFF, CBC, ANEU, GFR, BMP #### [place] [address] AST [Catalytic activity/Vol] 31 U/L Normal 8-34 [facility] Comment on above: Performed By: #### A DIFF, CBC, ANEU, GFR, BMP #### [address] [address] Bili Total 0.50 mg/dL Normal 0.20-1.20 [facility] Comment on above: Result Comment: Use of this assay is not recommended for patients undergoing treatment with eltrombopag due to the potential for falsely elevated results. Performed By: #### A DIFF, CBC, ANEU, GFR, BMP #### [place] [address] BUN/Creatinine Ratio 29.7 ratio High 10.0-22.0 [facility] Comment on above: Performed By: #### A DIFF, CBC, ANEU, GFR, BMP #### [place] [id number] Calcium [Mass/Vol] 9.6 mg/dL Normal 8.7-10.4 [facility] Comment on above: Performed By: #### A DIFF, CBC, ANEU, GFR, BMP #### [place] [address] Chloride [Moles/Vol] 101 mmol/L Normal 98-110 [facility] Comment on above: Performed By: #### A DIFF, CBC, ANEU, GFR, BMP #### [place] [address] CO2 [Moles/Vol] 27 mmol/L Normal 22-32 [facility] Comment on above: Performed By: #### A DIFF, CBC, ANEU, GFR, BMP #### [place] [address] Creatinine [Mass/Vol] 1.01 mg/dL Normal 0.50-1.20 [facility] Comment on above: Result Comment: Test ing performed on [employer] analyzer using enzymatic creatinine methodology. Performed By: #### A DIFF, CBC, ANEU, GFR, BMP #### [place] [id number] Electrolyte Balance 10.0 mEq/L Normal 4.0-15.[address] [facility] Comment on above: Performed By: #### A DIFF, CBC, ANEU, GFR, BMP #### [place] [id number] Globulin 3.4 G/dL Normal 1.5-3.8 [facility] Comment on above: Performed By: #### A DIFF, CBC, ANEU, GFR, BMP #### [address] [address] Glucose [Mass/Vol] 187 mg/dL High 82-115 [facility] Comment on above: Performed By: #### A DIFF, CBC, ANEU, GFR, BMP #### [address] [address] Potassium [Moles/Vol] 4.6 mmol/L Normal 3.5-5.0 [facility] Comment on above: Performed By: #### A DIFF, CBC, ANEU, GFR, BMP #### [address] [address] Sodium [Moles/Vol] 138 mmol/L Normal 136-145 [facility] Comment on above: Performed By: #### A DIFF, CBC, ANEU, GFR, BMP #### [address] [address] Total Protein 6.4 G/dL Normal 5.7-8.2 [facility] Comment on above: Performed By: #### A DIFF, CBC, ANEU, GFR, BMP #### [address] [address] Urea nitrogen [Mass/Vol] 30.0 mg/dL High 8.0-22.0 [facility] Comment on above: Performed By: #### A DIFF, CBC, ANEU, GFR, BMP #### [address] [address] LABORATORYOrdered By: Ann Carrillo on 09-03-2024 Glucose [Mass/Vol] 270 mg/dL [facility] Work Phone: LABORATORYOrdered By: SYSTEM [...] above: Interpretive Data: T esting performed on [employer] analyzer using enzymatic creatinine methodology. Electrolyte Balance [...] TSHon 09-03-2024 TSH 3.920 mIU/mL Normal 0.550-4.780 [facility] Comment on above: Performed By: #### A DIFF, CBC, ANEU, GFR, BMP #### [place] [address] CT HEAD OR BRAIN W/O CONTRAS Ton [...] 09/02/2024 3:10:44 PM Ordering Provider: SILVINO PEARL [facility] [place] 08-30-2024 RANDEE Telephone (FAMPWS) LINDSAY ACUNA ([id number]) 1945 F Date Time Provider Department 08/30/24 KAMERON CARUSO During your visit today, we recorded the following information about you: Jaiden Paulino, RN 08/30/2024 9:11 AM Signed Marya- [facility] reports patient was in [facility] with dx: stroke, and transferred to [facility]. Pt will be discharged from [facility] on 09/07/24 to home with [facility] SN PT OT [facility]. Asking if pcp agreeable to follow for C. Please phone Marya with verbal: [phone] Mj Glover APRN.GARRETT 08/30/2024 9:19 AM Signed Please let know that Dr. Caruso's team will follow orders. Okay to proceed. Mj Glover APRN.Fouzia Reynoso LPN 08/30/2024 10:09 AM Signed Marya with [facility] notified. Allergies As of Date: 08/30/2024 Noted Allergy Reaction BENZOCAINE 07/08/2005 2 - Rash COCAINE 05/28/2008 Comments: Inverted T PERFUMES 07/08/2005 12 - Shortness of Breath Comments: coughes and chokes SULFA (SULFONAMIDE ANTIBIOTICS) 07/08/2005 5 - Intolerance Date Reviewed: 06/26/2024 Reviewed by: Bret Arambula LPN - Fully Assessed Reason for Visit: [facility] requesting verbal agree to follow [...] Status:Closed by FOUZIA MILLER on 08/30/24 Normal [facility] .Auto Diffon 08-26-2024 Basophil, Absolute 0.1 10 3/mcL Normal 0.0-0.3 [facility] Comment on above: Performed By: #### A DIFF, CBC, ANEU, GFR, BMP #### [address] [address] Basophils/100 WBC (Bld) 1.0 % Normal 0.0-2.5 [facility] Comment on above: Performed By: #### A DIFF, CBC, ANEU, GFR, BMP #### [address] [address] Eosinophil, Absolute 0.3 10 3/mcL Normal 0.0-0.7 [facility] Comment on above: Performed By: #### A DIFF, CBC, ANEU, GFR, BMP #### [address] [address] Eosinophils/100 WBC (Bld) 4.2 % Normal 0.0-6.0 [facility] Comment on above: Performed By: #### A DIFF, CBC, ANEU, GFR, BMP #### [address] [address] Lymphocyte, Absolute 2.2 10 3/mcL Normal 0.9-4.3 [facility] Comment on above: Performed By: #### A DIFF, CBC, ANEU, GFR, BMP #### [address] [address] Lymphocytes/100 WBC (Bld) 26.3 % Normal 20.0-40.0 [facility] Comment on above: Performed By: #### A DIFF, CBC, ANEU, GFR, BMP #### [address] [address] Monocyte, Absolute 0.9 10 3/mcL Normal 0.1-1.4 [facility] Comment on above: Performed By: #### A DIFF, CBC, ANEU, GFR, BMP #### [address] [address] Monocytes/100 WBC (Bld) 11.4 % Normal 2.0-13.0 [facility] Comment on above: Performed By: #### A DIFF, CBC, ANEU, GFR, BMP #### [address] [address] Neutrophils/100 WBC (Bld) 57.1 % Normal 50.0-75.0 [facility] Comment on above: Performed By: #### A DIFF, CBC, ANEU, GFR, BMP #### [address] [address] .GFRon 08-26-2024 Estimated Glomerular Filtration Rate 59 ml/min/1.73sqm Normal [facility] Comment on above: Result Comment: [...] A DIFF, CBC, ANEU, GFR, BMP #### [address] [address] .NEUABSon 08-26-2024 Neutrophil, Absolute 4.7 10 3/mcL Normal 2.3-8.1 [facility] Comment on above: Performed By: #### A DIFF, CBC, ANEU, GFR, BMP #### [address] [address] BMPon 08-26-2024 BUN/Creatinine Ratio 35.1 ratio High 10.0-22.0 [facility] Comment on above: Performed By: #### A DIFF, CBC, ANEU, GFR, BMP #### [address] [address] Calcium [Mass/Vol] 9.8 mg/dL Normal 8.7-10.4 [facility] Comment on above: Performed By: #### A DIFF, CBC, ANEU, GFR, BMP #### [address] [address] Chloride [Moles/Vol] 98 mmol/L Normal 98-110 [facility] Comment on above: Performed By: #### A DIFF, CBC, ANEU, GFR, BMP #### [address] [address] CO2 [Moles/Vol] 25 mmol/L Normal 22-32 [facility] Comment on above: Performed By: #### A DIFF, CBC, ANEU, GFR, BMP #### [address] [address] Creatinine [Mass/Vol] 0.97 mg/dL Normal 0.50-1.20 [facility] Comment on above: Result Comment: Test ing performed on [employer] analyzer using enzymatic creatinine methodology. Performed By: #### A DIFF, CBC, ANEU, GFR, BMP #### [address] [address] Electrolyte Balance 12.0 mEq/L Normal 4.0-15.[address] [facility] Comment on above: Performed By: #### A DIFF, CBC, ANEU, GFR, BMP #### [address] [address] Glucose [Mass/Vol] 160 mg/dL High 82-115 [facility] Comment on above: Performed By: #### A DIFF, CBC, ANEU, GFR, BMP #### [address] [address] Potassium [Moles/Vol] 4.7 mmol/L Normal 3.5-5.0 [facility] Comment on above: Result Comment: Spec imen slightly hemolyzed. Performed By: #### A DIFF, CBC, ANEU, GFR, BMP #### [address] [address] Sodium [Moles/Vol] 135 mmol/L Low 136-145 [facility] Comment on above: Performed By: #### A DIFF, CBC, ANEU, GFR, BMP #### [place] [address] Urea nitrogen [Mass/Vol] 34.0 mg/dL High 8.0-22.0 [facility] Comment on above: Performed By: #### A DIFF, CBC, ANEU, GFR, BMP #### [place] [address] CBCon 08-26-2024 Erythrocyte distribution width (RBC) [Ratio] 14.0 % Normal 11.5-15.5 [facility] Comment on above: Performed By: #### A DIFF, CBC, ANEU, GFR, BMP #### [place] [address] Hematocrit (Bld) [Volume fraction] 41.0 % Normal 34.0-46.0 [facility] Comment on above: Performed By: #### A DIFF, CBC, ANEU, GFR, BMP #### [place] [address] Hgb 13.4 G/dL Normal 12.0-16.0 [facility] Comment on above: Performed By: #### A DIFF, CBC, ANEU, GFR, BMP #### [place] [address] MCH (RBC) [Entitic mass] 30.0 pg Normal 27.0-33.0 [facility] Comment on above: Performed By: #### A DIFF, CBC, ANEU, GFR, BMP #### [place] [address] MCHC 32.7 G/dL Normal 32.0-36.0 [facility] Comment on above: Performed By: #### A DIFF, CBC, ANEU, GFR, BMP #### [place] [address] MCV (RBC) [Entitic vol] 91.9 fL Normal 80.0-99.0 [facility] Comment on above: Performed By: #### A DIFF, CBC, ANEU, GFR, BMP #### [address] [address] Platelet 297 10 3/mcL Normal 150-450 [facility] Comment on above: Performed By: #### A DIFF, CBC, ANEU, GFR, BMP #### [facility] [address] [place] [id number] Platelet mean volume (Bld) [Entitic vol] 11.0 fL High 6.6-10.5 [facility] Comment on above: Performed By: #### A DIFF, CBC, ANEU, GFR, BMP #### [place] [id number] [place] [id number] RBC 4.46 10 6/mcL Normal 4.10-5.30 [facility] Comment on above: Performed By: #### A DIFF, CBC, ANEU, GFR, BMP #### [place] [id number] [place] [id number] WBC 8.3 10 3/mcL Normal 4.5-10.8 [facility] Comment on above: Performed By: #### A DIFF, CBC, ANEU, GFR, BMP #### [address] [address] LABORATORYOrdered By: SYSTEM SYSTEM on 08-26-2024 Basophils [...] above: Interpretive Data: T esting performed on [employer] analyzer using enzymatic creatinine methodology. Electrolyte Balance [...] [facility] HAND AND WRIST [...] Sign Date: 08/25/2024 2:27:26 PM Ordering Provider: [facility] MAIN XR HUMERUS MINIMUM 2 VIEWS [...] Sign Date: 08/25/2024 2:26:11 PM Ordering Provider: [facility] MAIN XR SHOULDER MINIMUM 2 VIEWS [...] Sign Date: 08/25/2024 2:26:45 PM Ordering Provider: [facility] MAIN LABORATORYOrdered By: Kala lux on 08-23-2024 Glucose [Mass/Vol] 278 mg/dL [place] [employer] Work Phone: LABORATORYOrdered By: Kala lux on 08-22-2024 Glucose [Mass/Vol] 320 mg/dL [facility] [employer] Work Phone: A1Con 08-21-2024 Glucose [Mass/Vol] 194 mg/dL Normal [facility] Comment on above: Result Comment: Nancy mated Average Glucose calculated by equation ((28.7xA1C)-46.7) Estimated average glucose (eAG) is a calculated value from Hemoglobin A1C and is territory sales representative of the average blood glucose level in the last 2-3 month period. Normal range: less than 114 mg/dL Performed By: #### A 1C #### [address] [address] HbA1c (Bld) [Mass fraction] 8.4 % High 4.0-6.0 [facility] Comment on above: Performed By: #### A 1C #### [address] [address] LABORATORYOrdered By: SYSTEM SYSTEM on 08-21-2024 Glucose [Mass/Vol] 194 mg/dL Invalid Interpretation Code Auto Chem SS Comment on above: Interpretive Data: E stimated average glucose (eAG) is a calculated value from Hemoglobin A1C and is territory sales representative of the average blood glucose level in the last 2-3 month period. Normal range: less than 114 mg/dL HbA1c (Bld) [Mass fraction] 8.4 % High 4.0 - 6.0 % Auto Chem SS .Auto Diffon 08-20-2024 Basophil, Absolute 0.1 10 3/mcL Normal 0.0-0.3 [facility] Comment on above: Performed By: #### B MP, ADIFF, CBC, GFR, ANEU #### [address] [address] Basophils/100 WBC (Bld) 1.1 % Normal 0.0-2.5 [facility] Comment on above: Performed By: #### B MP, ADIFF, CBC, GFR, ANEU #### [address] [address] Eosinophil, Absolute 0.3 10 3/mcL Normal 0.0-0.7 [facility] Comment on above: Performed By: #### B MP, ADIFF, CBC, GFR, ANEU #### [address] [address] Eosinophils/100 WBC (Bld) 3.6 % Normal 0.0-6.0 [facility] Comment on above: Performed By: #### B MP, ADIFF, CBC, GFR, ANEU #### [address] [address] Lymphocyte, Absolute 1.7 10 3/mcL Normal 0.9-4.3 [facility] Comment on above: Performed By: #### B MP, ADIFF, CBC, GFR, ANEU #### [address] [address] Lymphocytes/100 WBC (Bld) 20.8 % Normal 20.0-40.0 [facility] Comment on above: Performed By: #### B MP, ADIFF, CBC, GFR, ANEU #### [address] [address] Monocyte, Absolute 0.9 10 3/mcL Normal 0.1-1.4 [facility] Comment on above: Performed By: #### B MP, ADIFF, CBC, GFR, ANEU #### [address] [address] Monocytes/100 WBC (Bld) 11.4 % Normal 2.0-13.0 [facility] Comment on above: Performed By: #### B MP, ADIFF, CBC, GFR, ANEU #### [address] [address] Neutrophils/100 WBC (Bld) 63.1 % Normal 50.0-75.0 [facility] Comment on above: Performed By: #### B MP, ADIFF, CBC, GFR, ANEU #### [address] [address] .GFRon 08-20-2024 Estimated Glomerular Filtration Rate 55 ml/min/1.73sqm Normal [facility] Comment on above: Result Comment: [...] A DIFF, CBC, ANEU, GFR, BMP #### [address] [address] .NEUABSon 08-20-2024 Neutrophil, Absolute 5.1 10 3/mcL Normal 2.3-8.1 [facility] Comment on above: Performed By: #### B MP, ADIFF, CBC, GFR, ANEU #### [address] [address] BMPon 08-20-2024 BUN/Creatinine Ratio 29.8 ratio High 10.0-22.0 [facility] Comment on above: Performed By: #### B MP, ADIFF, CBC, GFR, ANEU #### [address] [address] Calcium [Mass/Vol] 9.8 mg/dL Normal 8.7-10.4 [facility] Comment on above: Performed By: #### B MP, ADIFF, CBC, GFR, ANEU #### [address] [address] Chloride [Moles/Vol] 95 mmol/L Low 98-110 [facility] Comment on above: Performed By: #### B MP, ADIFF, CBC, GFR, ANEU #### [address] [address] CO2 [Moles/Vol] 34 mmol/L High 22-32 [facility] Comment on above: Performed By: #### B MP, ADIFF, CBC, GFR, ANEU #### [address] [address] Creatinine [Mass/Vol] 1.04 mg/dL Normal 0.50-1.20 [facility] Comment on above: Result Comment: Test ing performed on [employer] analyzer using enzymatic creatinine methodology. Performed By: #### B MP, ADIFF, CBC, GFR, ANEU #### [place] [id number] Electrolyte Balance 5.0 mEq/L Normal 4.0-15.[address] [facility] Comment on above: Performed By: #### B MP, ADIFF, CBC, GFR, ANEU #### [address] [address] Glucose [Mass/Vol] 244 mg/dL High 82-115 [facility] Comment on above: Performed By: #### B MP, ADIFF, CBC, GFR, ANEU #### [place] [id number] Potassium [Moles/Vol] 4.8 mmol/L Normal 3.5-5.0 [facility] Comment on above: Result Comment: Spec imen slightly hemolyzed. Performed By: #### B MP, ADIFF, CBC, GFR, ANEU #### [place] [id number] Sodium [Moles/Vol] 134 mmol/L Low 136-145 [facility] Comment on above: Performed By: #### B MP, ADIFF, CBC, GFR, ANEU #### [place] [id number] Urea nitrogen [Mass/Vol] 31.0 mg/dL High 8.0-22.0 [facility] Comment on above: Performed By: #### B MP, ADIFF, CBC, GFR, ANEU #### [address] [address] CBCon 08-20-2024 Erythrocyte distribution width (RBC) [Ratio] 14.0 % Normal 11.5-15.5 [facility] Comment on above: Performed By: #### B MP, ADIFF, CBC, GFR, ANEU #### [place] [id number] Hematocrit (Bld) [Volume fraction] 41.9 % Normal 34.0-46.0 [facility] Comment on above: Performed By: #### B MP, ADIFF, CBC, GFR, ANEU #### [place] [address] Hgb 13.6 G/dL Normal 12.0-16.0 [facility] Comment on above: Performed By: #### B MP, ADIFF, CBC, GFR, ANEU #### [place] [address] MCH (RBC) [Entitic mass] 29.7 pg Normal 27.0-33.0 [facility] Comment on above: Performed By: #### B MP, ADIFF, CBC, GFR, ANEU #### [place] [address] MCHC 32.4 G/dL Normal 32.0-36.0 [facility] Comment on above: Performed By: #### B MP, ADIFF, CBC, GFR, ANEU #### [place] [address] MCV (RBC) [Entitic vol] 91.5 fL Normal 80.0-99.0 [facility] Comment on above: Performed By: #### B MP, ADIFF, CBC, GFR, ANEU #### [place] [address] Platelet 301 10 3/mcL Normal 150-450 [facility] Comment on above: Performed By: #### B MP, ADIFF, CBC, GFR, ANEU #### [place] [address] Platelet mean volume (Bld) [Entitic vol] 11.0 fL High 6.6-10.5 [facility] Comment on above: Performed By: #### B MP, ADIFF, CBC, GFR, ANEU #### [place] [address] RBC 4.58 10 6/mcL Normal 4.10-5.30 [facility] Comment on above: Performed By: #### B MP, ADIFF, CBC, GFR, ANEU #### [place] [address] WBC 8.1 10 3/mcL Normal 4.5-10.8 [facility] Comment on above: Performed By: #### B MP, ADIFF, CBC, GFR, ANEU #### [place] [id number] [place] [address] LABORATORYOrdered By: SYSTEM SYSTEM on 08-20-2024 Basophils [...] above: Interpretive Data: T esting performed on [employer] analyzer using enzymatic creatinine methodology. Electrolyte Balance [...] 08/18/2024 3:14:15 PM Ordering Provider: NANDO Anderson [facility] .Auto Diffon 08-16-2024 Basophil, Absolute 0.1 10 3/mcL Normal 0.0-0.3 [facility] Comment on above: Performed By: #### A DIFF, CBC, ANEU, GFR, BMP #### [address] [address] Basophils/100 WBC (Bld) 0.7 % Normal 0.0-2.5 [facility] Comment on above: Performed By: #### A DIFF, CBC, ANEU, GFR, BMP #### [address] [address] Eosinophil, Absolute 0.3 10 3/mcL Normal 0.0-0.7 [facility] Comment on above: Performed By: #### A DIFF, CBC, ANEU, GFR, BMP #### [address] [address] Eosinophils/100 WBC (Bld) 2.1 % Normal 0.0-6.0 [facility] Comment on above: Performed By: #### A DIFF, CBC, ANEU, GFR, BMP #### [address] [address] Lymphocyte, Absolute 1.9 10 3/mcL Normal 0.9-4.3 [facility] Comment on above: Performed By: #### A DIFF, CBC, ANEU, GFR, BMP #### [address] [address] Lymphocytes/100 WBC (Bld) 14.8 % Low 20.0-40.0 [facility] Comment on above: Performed By: #### A DIFF, CBC, ANEU, GFR, BMP #### [address] [address] Monocyte, Absolute 1.2 10 3/mcL Normal 0.1-1.4 [facility] Comment on above: Performed By: #### A DIFF, CBC, ANEU, GFR, BMP #### [address] [address] Monocytes/100 WBC (Bld) 9.8 % Normal 2.0-13.0 [facility] Comment on above: Performed By: #### A DIFF, CBC, ANEU, GFR, BMP #### [address] [address] Neutrophils/100 WBC (Bld) 72.6 % Normal 50.0-75.0 [facility] Comment on above: Performed By: #### A DIFF, CBC, ANEU, GFR, BMP #### [address] [address] .GFRon 08-16-2024 Estimated Glomerular Filtration Rate 58 ml/min/1.73sqm Normal [facility] Comment on above: Result Comment: [...] A DIFF, CBC, ANEU, GFR, BMP #### [address] [address] .NEUABSon 08-16-2024 Neutrophil, Absolute 9.2 10 3/mcL High 2.3-8.1 [facility] Comment on above: Performed By: #### A DIFF, CBC, ANEU, GFR, BMP #### [place] [address] BMPon 08-16-2024 BUN/Creatinine Ratio 34.3 ratio High 10.0-22.0 [facility] Comment on above: Performed By: #### A DIFF, CBC, ANEU, GFR, BMP #### [place] [address] Calcium [Mass/Vol] 9.0 mg/dL Normal 8.7-10.4 [facility] Comment on above: Performed By: #### A DIFF, CBC, ANEU, GFR, BMP #### [place] [address] Chloride [Moles/Vol] 100 mmol/L Normal 98-110 [facility] Comment on above: Performed By: #### A DIFF, CBC, ANEU, GFR, BMP #### [place] [address] CO2 [Moles/Vol] 30 mmol/L Normal 22-32 [facility] Comment on above: Performed By: #### A DIFF, CBC, ANEU, GFR, BMP #### [place] [address] Creatinine [Mass/Vol] 0.99 mg/dL Normal 0.50-1.20 [facility] Comment on above: Result Comment: Test ing performed on [employer] analyzer using enzymatic creatinine methodology. Performed By: #### A DIFF, CBC, ANEU, GFR, BMP #### [place] [id number] Electrolyte Balance 5.0 mEq/L Normal 4.0-15.[address] [facility] Comment on above: Performed By: #### A DIFF, CBC, ANEU, GFR, BMP #### [address] [address] Glucose [Mass/Vol] 259 mg/dL High 82-115 [facility] Comment on above: Performed By: #### A DIFF, CBC, ANEU, GFR, BMP #### [address] [address] Potassium [Moles/Vol] 5.0 mmol/L Normal 3.5-5.0 [facility] Comment on above: Performed By: #### A DIFF, CBC, ANEU, GFR, BMP #### [address] [address] Sodium [Moles/Vol] 135 mmol/L Low 136-145 [facility] Comment on above: Performed By: #### A DIFF, CBC, ANEU, GFR, BMP #### [place] [id number] Urea nitrogen [Mass/Vol] 34.0 mg/dL High 8.0-22.0 [facility] Comment on above: Performed By: #### A DIFF, CBC, ANEU, GFR, BMP #### [place] [id number] CBCon 08-16-2024 Erythrocyte distribution width (RBC) [Ratio] 13.7 % Normal 11.5-15.5 [facility] Comment on above: Performed By: #### A DIFF, CBC, ANEU, GFR, BMP #### [place] [id number] Hematocrit (Bld) [Volume fraction] 43.3 % Normal 34.0-46.0 [facility] Comment on above: Performed By: #### A DIFF, CBC, ANEU, GFR, BMP #### [place] [id number] Hgb 13.9 G/dL Normal 12.0-16.0 [facility] Comment on above: Performed By: #### A DIFF, CBC, ANEU, GFR, BMP #### [place] [id number] MCH (RBC) [Entitic mass] 30.0 pg Normal 27.0-33.0 [facility] Comment on above: Performed By: #### A DIFF, CBC, ANEU, GFR, BMP #### [place] [address] MCHC 32.1 G/dL Normal 32.0-36.0 [facility] Comment on above: Performed By: #### A DIFF, CBC, ANEU, GFR, BMP #### [place] [address] MCV (RBC) [Entitic vol] 93.6 fL Normal 80.0-99.0 [facility] Comment on above: Performed By: #### A DIFF, CBC, ANEU, GFR, BMP #### [place] [address] Platelet 230 10 3/mcL Normal 150-450 [facility] Comment on above: Performed By: #### A DIFF, CBC, ANEU, GFR, BMP #### [place] [address] Platelet mean volume (Bld) [Entitic vol] 10.7 fL High 6.6-10.5 [facility] Comment on above: Performed By: #### A DIFF, CBC, ANEU, GFR, BMP #### [place] [address] RBC 4.63 10 6/mcL Normal 4.10-5.30 [facility] Comment on above: Performed By: #### A DIFF, CBC, ANEU, GFR, BMP #### [place] [address] WBC 12.7 10 3/mcL High 4.5-10.8 [facility] Comment on above: Performed By: #### A DIFF, CBC, ANEU, GFR, BMP #### [place] [address] LABORATORYOrdered By: Marily Panda on 08-16-2024 Blood Glucose Interventions Administered agent to decrease blood sugar (08/16/24 12:23 PM) [employer] Work Phone: Blood Glucose Interventions Retest (08/16/24 10:15 AM) [employer] Work Phone: Bacteria identified Cx Nom ( Bld)on 08-15-2024 Bacteria identified Cx Nom (Unsp spec) NO GROWTH DAY 5 OF 5 [facility] CARDIAC RHYTHMon 08-15-2024 [facility] CBC,PLATELETSon 08-15-2024 Erythrocyte distribution width (RBC) [Ratio] 13.4 % 10.8 - 14.9 % [facility] Hematocrit (Bld) [Volume fraction] 43.8 % 34.9 - 44.3 % [facility] Hemoglobin (Bld) [Mass/Vol] 13.5 g/dL 11.4 - 15.2 g/dL [facility] Interpretation and review of laboratory results Abnormal [facility] MCH (RBC) [Entitic mass] 28.9 pg 25.9 - 33.9 pg [facility] MCHC (RBC) [Mass/Vol] 30.8 g/dL Low 31.4 - 35.9 g/dL [facility] MCV (RBC) [Entitic vol] 93.8 fL 79.6 - 97.7 fL [facility] Platelet mean volume (Bld) [Entitic vol] 12 fL 8.5 - 12.2 fL [facility] Platelets (Bld) [#/Vol] 252 10*3/uL 150 - 393 K/uL [facility] RBC (Bld) [#/Vol] 4.67 10*6/uL [facility] WBC (Bld) [#/Vol] 11.94 10*3/uL High 3.99 - 11.19 K/uL [facility] Hematocrit (Bld) [Volume fraction] 43.8 % Normal 34.9-44.3 [facility] Comment on above: Performed By: #### X M #### [facility] (DEFAULT) [address] [address] Hemoglobin (Bld) [Mass/Vol] 13.5 g/dL Normal 11.4-15.2 [facility] Comment on above: Performed By: #### X M #### [facility] (DEFAULT) [address] [place] [address] MCV (RBC) [Entitic vol] 93.8 fL Normal 79.6-97.7 [facility] Comment on above: Performed By: #### X M #### [facility] (DEFAULT) [address] [address] Mean Cell Hgb 28.9 pg Normal 25.9-33.9 [facility] Comment on above: Performed By: #### X M #### [facility] (DEFAULT) [address] [address] Mean Cell Hgb Conc 30.8 g/dL Low 31.4-35.9 [facility] Comment on above: Performed By: #### X M #### [facility] (DEFAULT) [address] [address] Platelet mean volume (Bld) [Entitic vol] 12.0 fL Normal 8.5-12.2 [facility] Comment on above: Performed By: #### X M #### [facility] (DEFAULT) [address] [address] Platelets (Bld) [#/Vol] 252 10*3/uL Normal 150-393 [facility] Comment on above: Performed By: #### X M #### [facility] (DEFAULT) [address] [place] [address] RBC (Bld) [#/Vol] 4.67 10*6/uL Normal 3.91-5.04 [facility] Comment on above: Performed By: #### X M #### [facility] (DEFAULT) [address] [address] RBC Distribution 13.4 % Normal 10.8-14.9 [facility] Comment on above: Performed By: #### X M #### [facility] (DEFAULT) [address] [place] [address] WBC (Bld) [#/Vol] 11.94 10*3/uL High 3.99-11.19 [facility] Comment on above: Performed By: #### X M #### [facility] (DEFAULT) [address] [place] [address] CHEM 7 (LYTES,BUN,CREA,GLUC) on 08-15-2024 Anion gap [Moles/Vol] 16 mmol/L 7 - 17 mmol/L [facility] Chloride [Moles/Vol] 99 mmol/L 98 - 10 8 mmol/L [facility] CO2 [Moles/Vol] 25 mmol/L 21 - 31 mmol/L [facility] Creatinine [Mass/Vol] 1.27 mg/dL High 0.50 - 1.20 mg/dL [facility] eGFR, CKD-EPI, Female 43 Low - PINF [facility] Glucose [Mass/Vol] 214 mg/dL High 70 - 179 mg/dL [facility] Interpretation and review of laboratory results Abnormal [facility] Osmolality Calc [Osmolality] 306 High [facility] Potassium [Moles/Vol] 4.8 mmol/L 3.5 - 5.0 mmol/L [facility] Sodium [Moles/Vol] 135 mmol/L 135 - 145 mmol/L [facility] Urea nitrogen [Mass/Vol] 51 mg/dL High 7 - 25 mg/dL [facility] Urea nitrogen/Creatinine [Mass ratio] 40 mg/mg [facility] Anion gap [Moles/Vol] 16 mmol/L Normal 7-17 [facility] Comment on above: Performed By: #### [facility] #### [facility] (DEFAULT) [address] [place] [address] Chloride [Moles/Vol] 99 mmol/L Normal 98-108 [facility] Comment on above: Performed By: #### H EMOGC #### [facility] (DEFAULT) [address] [place] [address] CO2 [Moles/Vol] 25 mmol/L Normal 21-31 [facility] Comment on above: Performed By: #### H EMOGC #### [facility] (DEFAULT) [address] [place] [address] Creatinine [Mass/Vol] 1.27 mg/dL High 0.50-1.20 [facility] Comment on above: Performed By: #### H EMOGC #### [facility] (DEFAULT) [address] [place] [address] GFR/1.73 sq M.predicted among non-blacks MDRD (S/P/Bld) [Vol rate/Area] 43 mL/min/{1.73_m2} Low >=60 [facility] Comment on above: Result Comment: Repo rted eGFR is based on the CKD-EPI 2020 equation using creatinine, age, and sex. Performed By: #### H EMO #### [facility] (DEFAULT) [address] [place] [address] Glucose [Mass/Vol] 214 mg/dL High Nonfastin -179 mg/dL; Fastin-99 [facility] Comment on above: Performed By: #### H EMO #### [facility] (DEFAULT) [address] [place] [address] Osmolality [Osmolality] 306 mosm/kg High 278-305 [facility] Comment on above: Performed By: #### H EMOGC #### [facility] (DEFAULT) [address] [place] [address] Potassium [Moles/Vol] 4.8 mmol/L Normal 3.5-5.0 [facility] Comment on above: Performed By: #### H EMOGC #### [facility] (DEFAULT) [address] [place] [address] Sodium [Moles/Vol] 135 mmol/L Normal 135-145 [facility] Comment on above: Performed By: #### H EMOGC #### [facility] (DEFAULT) [address] [place] [address] Urea nitrogen [Mass/Vol] 51 mg/dL High 7-25 [facility] Comment on above: Performed By: #### [facility] #### [facility] (DEFAULT) [address] [place] [address] Urea nitrogen/Creatinine [Mass ratio] 40 mg/mg Normal [facility] Comment on above: Performed By: #### [facility] #### [facility] (DEFAULT) [address] [place] [address] GLUCOSE POCon 08-15-2024 Glucose [Mass/Vol] 190 mg/dL High 70 - 179 mg/dL [facility] Interpretation and review of laboratory results Abnormal [facility] POC Sample Type [facility] Glucose [Mass/Vol] 146 mg/dL 70 - 179 mg/dL [facility] POC Sample Type [facility] Glucose [Mass/Vol] 215 mg/dL High 70 - 179 mg/dL [facility] Interpretation and review of laboratory results Abnormal [facility] POC Sample Type [facility] MAGNESIUMon 08-15-2024 Interpretation and review of laboratory results Normal [facility] Magnesium [Mass/Vol] 1.6 mg/dL 1.6 - 2 .6 mg/dL [facility] Magnesium [Mass/Vol] 1.6 mg/dL Normal 1.6-2.6 [facility] Comment on above: Performed By: #### [facility] #### [facility] (DEFAULT) [address] [place] [address] No Panel Informationon 08-15 [facility] CBC,PLATELETSon 08-14-2024 Erythrocyte distribution width (RBC) [Ratio] 13.4 % 10.8 - 14.9 % [facility] Hematocrit (Bld) [Volume fraction] 47.9 % High 34.9 - 44.3 % [facility] Hemoglobin (Bld) [Mass/Vol] 14.3 g/dL 11.4 - 15.2 g/dL [facility] Interpretation and review of laboratory results Abnormal [facility] MCH (RBC) [Entitic mass] 29.3 pg 25.9 - 33.9 pg [facility] MCHC (RBC) [Mass/Vol] 29.9 g/dL Low 31.4 - 35.9 g/dL [facility] MCV (RBC) [Entitic vol] 98.2 fL High 79.6 - 97.7 fL [facility] Platelet mean volume (Bld) [Entitic vol] 11.3 fL 8.5 - 12.2 fL [facility] Platelets (Bld) [#/Vol] 229 10*3/uL 150 - 393 K/uL [facility] RBC (Bld) [#/Vol] 4.88 10*6/uL [facility] WBC (Bld) [#/Vol] 12.14 10*3/uL High 3.99 - 11.19 K/uL [facility] Hematocrit (Bld) [Volume fraction] 47.9 % High 34.9-44.3 [facility] Comment on above: Performed By: #### X M #### [facility] (DEFAULT) [address] [address] Hemoglobin (Bld) [Mass/Vol] 14.3 g/dL Normal 11.4-15.2 [facility] Comment on above: Performed By: #### X M #### [facility] (DEFAULT) [address] [address] MCV (RBC) [Entitic vol] 98.2 fL High 79.6-97.7 [facility] Comment on above: Performed By: #### X M #### [facility] (DEFAULT) [address] [place] [address] Mean Cell Hgb 29.3 pg Normal 25.9-33.9 [facility] Comment on above: Performed By: #### X M #### [facility] (DEFAULT) [address] [place] [address] Mean Cell Hgb Conc 29.9 g/dL Low 31.4-35.9 [facility] Comment on above: Performed By: #### X M #### [facility] (DEFAULT) [address] [place] [address] Platelet mean volume (Bld) [Entitic vol] 11.3 fL Normal 8.5-12.2 [facility] Comment on above: Performed By: #### X M #### [facility] (DEFAULT) [address] [place] [address] Platelets (Bld) [#/Vol] 229 10*3/uL Normal 150-393 [facility] Comment on above: Performed By: #### X M #### [facility] (DEFAULT) [address] [place] [address] 55743 RBC (Bld) [#/Vol] 4.88 10*6/uL Normal 3.91-5.04 [facility] Comment on above: Performed By: #### X M #### [facility] (DEFAULT) [address] [place] [address] 16737 RBC Distribution 13.4 % Normal 10.8-14.9 [facility] Comment on above: Performed By: #### X M #### [facility] (DEFAULT) [address] [place] [address] 87953 WBC (Bld) [#/Vol] 12.14 10*3/uL High 3.99-11.19 [facility] Comment on above: Performed By: #### X M #### [facility] (DEFAULT) [address] [place] [address] 03330 CHEM 7 (LYTES,BUN,CREA,GLUC) on 08-14-2024 Anion gap [Moles/Vol] 16 mmol/L 7 - 17 mmol/L [facility] Chloride [Moles/Vol] 101 mmol/L 98 - 10 8 mmol/L [facility] CO2 [Moles/Vol] 23 mmol/L 21 - 31 mmol/L [facility] Creatinine [Mass/Vol] 1.15 mg/dL 0.50 - 1.20 mg/dL [facility] eGFR, CKD-EPI, Female 48 Low - PINF [facility] Glucose [Mass/Vol] 208 mg/dL High 70 - 179 mg/dL [facility] Interpretation and review of laboratory results Abnormal [facility] Osmolality Calc [Osmolality] 304 [facility] Potassium [Moles/Vol] 4.7 mmol/L 3.5 - 5.0 mmol/L [facility] Sodium [Moles/Vol] 135 mmol/L 135 - 145 mmol/L [facility] Urea nitrogen [Mass/Vol] 47 mg/dL High 7 - 25 mg/dL [facility] Urea nitrogen/Creatinine [Mass ratio] 41 mg/mg [facility] Anion gap [Moles/Vol] 16 mmol/L Normal 7-17 [facility] Comment on above: Performed By: #### B LDCULT #### [facility] (DEFAULT) [address] [place] [address] 85517 Chloride [Moles/Vol] 101 mmol/L Normal 98-108 [facility] Comment on above: Performed By: #### B LDCULT #### [facility] (DEFAULT) [address] [place] [address] CO2 [Moles/Vol] 23 mmol/L Normal 21-31 [facility] Comment on above: Performed By: #### B LDCULT #### [facility] (DEFAULT) [address] [place] [address] Creatinine [Mass/Vol] 1.15 mg/dL Normal 0.50-1.20 [facility] Comment on above: Performed By: #### B LDCULT #### [facility] (DEFAULT) [address] [place] [address] 77378 GFR/1.73 sq M.predicted among non-blacks MDRD (S/P/Bld) [Vol rate/Area] 48 mL/min/{1.73_m2} Low >=60 [facility] Comment on above: Result Comment: Repo rted eGFR is based on the CKD-EPI 2020 equation using creatinine, age, and sex. Performed By: #### B LDCULT #### [facility] (DEFAULT) [address] [place] [address] 94426 Glucose [Mass/Vol] 208 mg/dL High Nonfastin -179 mg/dL; Fastin-99 [facility] Comment on above: Performed By: #### B LDCULT #### [facility] (DEFAULT) [address] [place] [address] 08393 Osmolality [Osmolality] 304 mosm/kg Normal 278-305 [facility] Comment on above: Performed By: #### B LDCULT #### [facility] (DEFAULT) [address] [place] [address] 10969 Potassium [Moles/Vol] 4.7 mmol/L Normal 3.5-5.0 [facility] Comment on above: Performed By: #### B LDCULT #### [facility] (DEFAULT) [address] [place] [address] 19377 Sodium [Moles/Vol] 135 mmol/L Normal 135-145 [facility] Comment on above: Performed By: #### B LDCULT #### [facility] (DEFAULT) [address] [place] [address] 06760 Urea nitrogen [Mass/Vol] 47 mg/dL High 7-25 [facility] Comment on above: Performed By: #### B LDCULT #### [facility] (DEFAULT) [address] [place] [address] 15829 Urea nitrogen/Creatinine [Mass ratio] 41 mg/mg Normal [facility] Comment on above: Performed By: #### B LDCULT #### [facility] (DEFAULT) [address] [place] [address] 74180 GLUCOSE POCon 08-14-2024 Glucose [Mass/Vol] 204 mg/dL High 70 - 179 mg/dL [facility] Interpretation and review of laboratory results Abnormal [facility] POC Sample Type CAPBL [facility] Glucose [Mass/Vol] 264 mg/dL High 70 - 179 mg/dL [facility] Interpretation and review of laboratory results Abnormal [facility] POC Sample Type CAPBL [facility] Glucose [Mass/Vol] 189 mg/dL High 70 - 179 mg/dL [facility] Interpretation and review of laboratory results Abnormal [facility] POC Sample Type CAPBL [facility] MAGNESIUMon 08-14-2024 Interpretation and review of laboratory results Normal [facility] Magnesium [Mass/Vol] 1.6 mg/dL 1.6 - 2 .6 mg/dL [facility] Magnesium [Mass/Vol] 1.6 mg/dL Normal 1.6-2.6 [facility] Comment on above: Performed By: #### B LDCULT #### [facility] (DEFAULT) [address] [id number] No Panel Informationon 08-14 [facility] CBC,PLATELETSon 08-13-2024 Erythrocyte distribution width (RBC) [Ratio] 13.4 % 10.8 - 14.9 % [facility] Hematocrit (Bld) [Volume fraction] 45.7 % High 34.9 - 44.3 % [facility] Hemoglobin (Bld) [Mass/Vol] 14.3 g/dL 11.4 - 15.2 g/dL [facility] Interpretation and review of laboratory results Abnormal [facility] MCH (RBC) [Entitic mass] 29.5 pg 25.9 - 33.9 pg [facility] MCHC (RBC) [Mass/Vol] 31.3 g/dL Low 31.4 - 35.9 g/dL [facility] MCV (RBC) [Entitic vol] 94.2 fL 79.6 - 97.7 fL [facility] Platelet mean volume (Bld) [Entitic vol] 11.7 fL 8.5 - 12.2 fL [facility] Platelets (Bld) [#/Vol] 245 10*3/uL 150 - 393 K/uL [facility] RBC (Bld) [#/Vol] 4.85 10*6/uL [facility] WBC (Bld) [#/Vol] 12.02 10*3/uL High 3.99 - 11.19 K/uL [facility] Hematocrit (Bld) [Volume fraction] 45.7 % High 34.9-44.3 [facility] Comment on above: Performed By: #### [facility] #### [facility] (DEFAULT) [address] [address] Hemoglobin (Bld) [Mass/Vol] 14.3 g/dL Normal 11.4-15.2 [facility] Comment on above: Performed By: #### H EMOGC #### [facility] (DEFAULT) [address] [place] [address] 30049 MCV (RBC) [Entitic vol] 94.2 fL Normal 79.6-97.7 O [facility] Comment on above: Performed By: #### H EMOGC #### [facility] (DEFAULT) [address] [place] [address] 93943 Mean Cell Hgb 29.5 pg Normal 25.9-33.9 [facility] Comment on above: Performed By: #### H EMOGC #### [facility] (DEFAULT) [address] [place] [address] 82621 Mean Cell Hgb Conc 31.3 g/dL Low 31.4-35.9 [facility] Comment on above: Performed By: #### H EMO #### [facility] (DEFAULT) [address] [place] [address] 20839 Platelet mean volume (Bld) [Entitic vol] 11.7 fL Normal 8.5-12.2 [facility] Comment on above: Performed By: #### H EMO #### [facility] (DEFAULT) [address] [place] [address] 51156 Platelets (Bld) [#/Vol] 245 10*3/uL Normal 150-393 [facility] Comment on above: Performed By: #### H EMO #### [facility] (DEFAULT) [address] [place] [address] 90778 RBC (Bld) [#/Vol] 4.85 10*6/uL Normal 3.91-5.04 [facility] Comment on above: Performed By: #### H EMO #### [facility] (DEFAULT) [address] [place] [address] 16425 RBC Distribution 13.4 % Normal 10.8-14.9 [facility] Comment on above: Performed By: #### H EMO #### [facility] (DEFAULT) [address] [place] [address] 04105 WBC (Bld) [#/Vol] 12.02 10*3/uL High 3.99-11.19 [facility] Comment on above: Performed By: #### H EMO #### [facility] (DEFAULT) [address] [place] [address] 36532 CHEM 7 (LYTES,BUN,CREA,GLUC) on 08-13-2024 Anion gap [Moles/Vol] 15 mmol/L 7 - 17 mmol/L [facility] Chloride [Moles/Vol] 104 mmol/L 98 - 10 8 mmol/L [facility] CO2 [Moles/Vol] 23 mmol/L 21 - 31 mmol/L [facility] Creatinine [Mass/Vol] 1.18 mg/dL 0.50 - 1.20 mg/dL [facility] eGFR, CKD-EPI, Female 47 Low - PINF [facility] Glucose [Mass/Vol] 225 mg/dL High 70 - 179 mg/dL [facility] Interpretation and review of laboratory results Abnormal [facility] Osmolality Calc [Osmolality] 311 High [facility] Potassium [Moles/Vol] 4.6 mmol/L 3.5 - 5.0 mmol/L [facility] Sodium [Moles/Vol] 137 mmol/L 135 - 145 mmol/L [facility] Urea nitrogen [Mass/Vol] 55 mg/dL High 7 - 25 mg/dL [facility] Urea nitrogen/Creatinine [Mass ratio] 47 mg/mg [facility] Anion gap [Moles/Vol] 15 mmol/L Normal 7-17 [facility] Comment on above: Performed By: #### [facility] #### [facility] (DEFAULT) [address] [address] Chloride [Moles/Vol] 104 mmol/L Normal 98-108 [facility] Comment on above: Performed By: #### [facility] #### [facility] (DEFAULT) [address] [address] CO2 [Moles/Vol] 23 mmol/L Normal 21-31 [facility] Comment on above: Performed By: #### [facility] #### [facility] (DEFAULT) [address] [address] Creatinine [Mass/Vol] 1.18 mg/dL Normal 0.50-1.20 [facility] Comment on above: Performed By: #### [facility] #### [facility] (DEFAULT) [address] [address] GFR/1.73 sq M.predicted among non-blacks MDRD (S/P/Bld) [Vol rate/Area] 47 mL/min/{1.73_m2} Low >=60 [facility] Comment on above: Result Comment: Repo rted eGFR is based on the CKD-EPI 2020 equation using creatinine, age, and sex. Performed By: #### H EMO #### [facility] (DEFAULT) [address] [place] [address] 65976 Glucose [Mass/Vol] 225 mg/dL High Nonfastin -179 mg/dL; Fastin-99 [facility] Comment on above: Performed By: #### H EMOGC #### [facility] (DEFAULT) [address] [place] [address] 07379 Osmolality [Osmolality] 311 mosm/kg High 278-305 [facility] Comment on above: Performed By: #### H EMO #### [facility] (DEFAULT) [address] [place] [address] 28543 Potassium [Moles/Vol] 4.6 mmol/L Normal 3.5-5.0 [facility] Comment on above: Performed By: #### H EMO #### [facility] (DEFAULT) [address] [place] [address] 87430 Sodium [Moles/Vol] 137 mmol/L Normal 135-145 [facility] Comment on above: Performed By: #### H EMO #### [facility] (DEFAULT) [address] [place] [address] 15916 Urea nitrogen [Mass/Vol] 55 mg/dL High 7-25 [facility] Comment on above: Performed By: #### H EMO #### [facility] (DEFAULT) [address] [place] [address] 74036 Urea nitrogen/Creatinine [Mass ratio] 47 mg/mg Normal [facility] Comment on above: Performed By: #### H EMOGC #### [facility] (DEFAULT) [address] [place] [address] 65962 GLUCOSE POCon 08-13-2024 Glucose [Mass/Vol] 195 mg/dL High 70 - 179 mg/dL [facility] Interpretation and review of laboratory results Abnormal [facility] POC Sample Type [facility] Glucose [Mass/Vol] 198 mg/dL High 70 - 179 mg/dL [facility] Interpretation and review of laboratory results Abnormal [facility] POC Sample [facility] Glucose [Mass/Vol] 158 mg/dL 70 - 179 mg/dL [facility] POC Sample Type [facility] Glucose [Mass/Vol] 211 mg/dL High 70 - 179 mg/dL [facility] Interpretation and review of laboratory results Abnormal [facility] POC Sample Type [facility] Glucose [Mass/Vol] 240 mg/dL High 70 - 179 mg/dL [facility] Interpretation and review of laboratory results Abnormal [facility] POC Sample Type CAPBL [facility] MAGNESIUMon 08-13-2024 Interpretation and review of laboratory results Normal [facility] Magnesium [Mass/Vol] 1.8 mg/dL 1.6 - 2 .6 mg/dL [facility] Magnesium [Mass/Vol] 1.8 mg/dL Normal 1.6-2.6 [facility] Comment on above: Performed By: #### [facility] #### [facility] (DEFAULT) [address] [place] [address] No Panel Informationon 08-13 [facility] CBC,PLATELETSon 08-12-2024 Erythrocyte distribution width (RBC) [Ratio] 13.6 % 10.8 - 14.9 % [facility] Hematocrit (Bld) [Volume fraction] 45.1 % High 34.9 - 44.3 % [facility] Hemoglobin (Bld) [Mass/Vol] 14.3 g/dL 11.4 - 15.2 g/dL [facility] Interpretation and review of laboratory results Abnormal [facility] MCH (RBC) [Entitic mass] 29.7 pg 25.9 - 33.9 pg [facility] MCHC (RBC) [Mass/Vol] 31.7 g/dL 31.4 - 35.9 g/dL [facility] MCV (RBC) [Entitic vol] 93.6 fL 79.6 - 97.7 fL [facility] Platelet mean volume (Bld) [Entitic vol] 11.4 fL 8.5 - 12.2 fL [facility] Platelets (Bld) [#/Vol] 241 10*3/uL 150 - 393 K/uL [facility] RBC (Bld) [#/Vol] 4.82 10*6/uL [facility] WBC (Bld) [#/Vol] 14.32 10*3/uL High 3.99 - 11.19 K/uL [facility] Hematocrit (Bld) [Volume fraction] 45.1 % High 34.9-44.3 [facility] Comment on above: Performed By: #### [facility] #### [facility] (DEFAULT) [address] [address] Hemoglobin (Bld) [Mass/Vol] 14.3 g/dL Normal 11.4-15.2 [facility] Comment on above: Performed By: #### [facility] #### [facility] (DEFAULT) [address] [address] MCV (RBC) [Entitic vol] 93.6 fL Normal 79.6-97.7 O [facility] Comment on above: Performed By: #### [facility] #### [facility] (DEFAULT) [address] [address] Mean Cell Hgb 29.7 pg Normal 25.9-33.9 [facility] Comment on above: Performed By: #### [facility] #### [facility] (DEFAULT) [address] [place] [address] 28260 Mean Cell Hgb Conc 31.7 g/dL Normal 31.4-35.9 [facility] Comment on above: Performed By: #### H EMOGC #### [facility] (DEFAULT) [address] [place] [address] 92539 Platelet mean volume (Bld) [Entitic vol] 11.4 fL Normal 8.5-12.2 [facility] Comment on above: Performed By: #### H EMOGC #### [facility] (DEFAULT) [address] [place] [address] 63286 Platelets (Bld) [#/Vol] 241 10*3/uL Normal 150-393 [facility] Comment on above: Performed By: #### H EMOGC #### [facility] (DEFAULT) [address] [place] [address] 03865 RBC (Bld) [#/Vol] 4.82 10*6/uL Normal 3.91-5.04 [facility] Comment on above: Performed By: #### H EMOGC #### [facility] (DEFAULT) [address] [place] [address] 19505 RBC Distribution 13.6 % Normal 10.8-14.9 [facility] Comment on above: Performed By: #### H EMOGC #### [facility] (DEFAULT) [address] [place] [address] 33331 WBC (Bld) [#/Vol] 14.32 10*3/uL High 3.99-11.19 [facility] Comment on above: Performed By: #### H EMOGC #### [facility] (DEFAULT) [address] [address] CHEM 7 (LYTES,BUN,CREA,GLUC) on 08-12-2024 Anion gap [Moles/Vol] 15 mmol/L 7 - 17 mmol/L [facility] Chloride [Moles/Vol] 104 mmol/L 98 - 10 8 mmol/L [facility] CO2 [Moles/Vol] 27 mmol/L 21 - 31 mmol/L [facility] Creatinine [Mass/Vol] 1.36 mg/dL High 0.50 - 1.20 mg/dL [facility] eGFR, CKD-EPI, Female 40 Low - PINF [facility] Glucose [Mass/Vol] 126 mg/dL 70 - 179 mg/dL [facility] Interpretation and review of laboratory results Abnormal [facility] Osmolality Calc [Osmolality] 313 High [facility] Potassium [Moles/Vol] 4.5 mmol/L 3.5 - 5.0 mmol/L [facility] Sodium [Moles/Vol] 141 mmol/L 135 - 145 mmol/L [facility] Urea nitrogen [Mass/Vol] 56 mg/dL High 7 - 25 mg/dL [facility] Urea nitrogen/Creatinine [Mass ratio] 41 mg/mg [facility] Anion gap [Moles/Vol] 15 mmol/L Normal 7-17 [facility] Comment on above: Performed By: #### T YPEC #### [facility] (DEFAULT) [address] [place] [address] 7[address]27 Chloride [Moles/Vol] 104 mmol/L Normal 98-108 [facility] Comment on above: Performed By: #### T YPEC #### [facility] (DEFAULT) [address] [place] [address] 39810 CO2 [Moles/Vol] 27 mmol/L Normal 21-31 [facility] Comment on above: Performed By: #### T YPEC #### [facility] (DEFAULT) [address] [place] [address] Creatinine [Mass/Vol] 1.36 mg/dL High 0.50-1.20 [facility] Comment on above: Performed By: #### T YPEC #### [facility] (DEFAULT) [address] [place] [address] 34911 GFR/1.73 sq M.predicted among non-blacks MDRD (S/P/Bld) [Vol rate/Area] 40 mL/min/{1.73_m2} Low >=60 [facility] Comment on above: Result Comment: Repo rted eGFR is based on the CKD-EPI 2020 equation using creatinine, age, and sex. Performed By: #### T YPEC #### [facility] (DEFAULT) [address] [place] [address] 24668 Glucose [Mass/Vol] 126 mg/dL Normal Nonfastin -179 mg/dL; Fastin-99 [facility] Comment on above: Performed By: #### T YPEC #### [facility] (DEFAULT) [address] [place] [address] 16697 Osmolality [Osmolality] 313 mosm/kg High 278-305 [facility] Comment on above: Performed By: #### T YPEC #### [facility] (DEFAULT) [address] [place] [address] 96512 Potassium [Moles/Vol] 4.5 mmol/L Normal 3.5-5.0 [facility] Comment on above: Performed By: #### T YPEC #### [facility] (DEFAULT) [address] [place] [address] 28235 Sodium [Moles/Vol] 141 mmol/L Normal 135-145 [facility] Comment on above: Performed By: #### T YPEC #### [facility] (DEFAULT) [address] [place] [address] 24938 Urea nitrogen [Mass/Vol] 56 mg/dL High 7-25 [facility] Comment on above: Performed By: #### T YPEC #### [facility] (DEFAULT) [address] [place] [address] 18344 Urea nitrogen/Creatinine [Mass ratio] 41 mg/mg Normal [facility] Comment on above: Performed By: #### T YPEC #### [facility] (DEFAULT) [address] [place] [address] 80644 GLUCOSE POCon 08-12-2024 Glucose [Mass/Vol] 231 mg/dL High 70 - 179 mg/dL [facility] Interpretation and review of laboratory results Abnormal [facility] POC Sample Type CAPBL [facility] Glucose [Mass/Vol] 208 mg/dL High 70 - 179 mg/dL [facility] Interpretation and review of laboratory results Abnormal [facility] POC Sample Type CAPBL [facility] Glucose [Mass/Vol] 160 mg/dL 70 - 179 mg/dL [facility] POC Sample Type CAPBL [facility] Glucose [Mass/Vol] 107 mg/dL 70 - 179 mg/dL [facility] POC Sample Type CAPBL [facility] MAGNESIUMon 08-12-2024 Interpretation and review of laboratory results Normal [facility] Magnesium [Mass/Vol] 2.2 mg/dL 1.6 - 2 .6 mg/dL [facility] Magnesium [Mass/Vol] 2.2 mg/dL Normal 1.6-2.6 [facility] Comment on above: Performed By: #### T YPEC #### [facility] (DEFAULT) [address] [place] [address] No Panel Informationon 08-12 [facility] SURG PATH REQUESTOrdered By: Renae Glez on 08-12-2024 Case Report [facility] Clinical History [id number] NVx pcnScPJAjmURcW1CprkdoNQ [id number] QNoHiQgs7rdi581jFEfx0ia AHEEhtybyBn6dFapD24fd8H 4PwtuF0kgAURtLLwlWCKjUJ gseTAnAIj4EIHjvLJdekCaP mUkBYRocABzyTS5QCBlBF3m xnhgSGluCJkxYZRwinW0BQK ikZJnH3JcQECfVO6wpvsmDA O4ALzmGOTjHUS5ArEjDXGvf 7Loqxk3ChFxwJd0l2ybUZTt SAXzpAiwu5atOIU6TURhkOZ nO6ksrZ8rQXPtPT8xppunz9 bfUJcjNTcjUTBdkIM7btI5C JHsmCIkP0BxyA9bRBSkMTDb imNbgJjuhB9kPjGfQHqrHvK pTq8HQEnPZjHmKESyv8ErOW BzLHILsCMwpi1fwJU6VLZNg 53nDwIiVQUbuCZzqGISwJP0 o0W2FjFyPq6wfYBljKZciIR fsIX2q2V2XJSez4ElBIJpTt xwYXJ9 [facility] For Immediate Release to Patient's MyChart? Yes Yes [facility] Gross Description [id number] bGF uZzEwMzNcZnRuYmpcdWMxIH tccnRmMVxlcGljMTExMDVcY I0muAgiyXc4oYumOBTaqmK9 fVGeFJwtb9sqMNU6n3yhuaf uXTXvKIxtLu2zxHNyxYyxLb BlXVMnPQi5yN73NERjdW7rd LMmDInhuhTaUMTeK1KgBG5p HSrjsITcOER1lCxsJWTcnfg lMsA3WKauMKJuhjijIIo9IP rnFVFjaTB2NLAzjPSfH6RrT ZEeXI0yxpx2DQG5VAwnIMJt YjQ2PVRexKNsBEZryGlwZDo hg909HYB5UeVjMLGsbpMyuK dypD3fLnKhVZKJkKJgq3GmT 3hxNN8ndRVhimMxNBy3CGPx hY1bq18bKNLoj2Wmwwp9WDe jOhQlWULnC70hcPAzmqIrVD dpdGggdGhlIHBhdGllbnQnc wLyPS0yBFOfQMLmO7Bmb7Du n59tdzJiHiLzLqAzgBGlWTI gzvlpHjOqBUagZqPuPnt7WP IgVGhlIHNwZWNpbWVuIGlzI CDrk9aykyN5OZMqEudgw4As xBCrFCVlvmWxvSOiNX3vSCG fadUct6QyHO1eINAwdlEuCy MzE38cooGqOB7zWXRdyp1hw Y5vJVUxXdVefEydw4SyXRSs nn4dLNMjPjL0sXA3cyCsPnR cN07syI0kU1ZyWJQfb3ZbKY lsWJ3kvM5kIzUiEQEsLZVzg EOsDVOqgcOORHWcNQRiZD0f aVm0MVtpIduLXSrfLdPbSPY 6VXSrdy56PUX7PpXba0K5DT FxNzIpXJYbLS0jpFyvWBXnB R1iRORiP5mexV4mnfn3UgOs SYJnKcT5GLPfphZ6Ora2SZQ cKKokt0uyq9KwUCNfSVq4eS yfLiApHBFgg4xpwvWgKyFmX ASiHPRqBKVvtHPpN855c4pf e4wutuYckCB9MUMcXKW6EYq yuiNbfwR4YLqjlSRvQgD1ON itavKtPKmxarOrhaCvMan7G XNmR843MHH7bOlmg3nvSZR9 BUBaVJUmOzZdGt6plPPnQ88 8TWVbYHSNPRHwhUw9JUJtzm UyypTjoQEUx564E833u4seH FHhukXbnFeGjmtun2tgY721 XHBhcGVydzEyMjQwXHBhcGV fmDS9IQKaNI6onkgoUKlcNY osSMXftoT1VDQtvYZiH6TkI FRuKI0xqslvJUR8QHqyLUIm VYT7IhJqFCOlx8Qlpwt3AzT uyb8ztp21AYJ7h9CclRugXK K5ERG7LrIzCz1mrPOtCBMiI E5cArEbvBLfNLBfea56pBbm EKmdraRdoP5eXoTuDSWtqFP bXPZoOO7zsQTvBSDjpC6qag xjXHBnYnJkcmhlYWRccGdic iAyLh7kzJzdRHC6NHnqI2lo kK5aJmK0NZeeR5fxfO8kBHy 2GTfaaOE8AQKvbB8oGY0bbs uuv9onTPuwBKtpWDHewfA8d sY9SOFuhWImM3VwmW1zDHDx UY4xufvff3atMHQ1FZxkPIE vTXW4BlUnPDVbt8Gdfiq4En Rza7EcfXJoLImsH38hg704O RGeisGvA5fnvJJuccdnwJCz rsevKYkwdrV9GSUzFLXuKIj uXGYxXGZzMjJcbGFuZzEwMz NcaGljaFxmMVxkYmNoXGYxX AnhU1pwPkOfAfHiQqRJln2p r5ZzGGVgtfQ3jSqfSNQlg0A mx8OxTgSBKLYyY9CmSY0ueE QrLEOrgh16 [facility] Microscopic Description g3vkzGZpDZYifZRd ZjIyMDA cFBCud5jlQBQarRXnKqZnDv NcZnRuYmpcdWMxXGRlZmYwe 8tjg801cCNee1mdYYHpThD4 uOLjJWAapMOdL901DQNoANi be4tdo2UzDTDciFUfg2K6KC XAsecoiCx0mFtyH06kg1A7P xcjQ4taLBHtAUZuM5JbHH2h CJLqWtp2LCB6RSS3YIImXRD aS3QpDK3kHDIffLCfVWm9x2 piuMpcSKXiQGI1g7sfLLmxk hIlHP9aiu7ymRd0t0npvwEq CVErFWLhyDSPBLLgO7LurCn hSf6lpJh6tGbvUxriBIB3Yg b0MG7sgz39mgt2yOnyIAYyn tscZqC0JXobBVMlzzivURo1 CMtqZPSogOQ9JFDzoVZqV8R uZKQoMN9ukwk0FQI3HFnuDS RqRqL4NWWjtAPpAAFcyIpcC Znnp870OKL4JtWfOY4xV1Vj j0W6kQ2adTIuSTEpxVOlJvQ cTNThcx0anSYaXQteq4HbDA R6ycA7qZBhvPSaRTHfPW24J bfve5BuXzrtKUV6WIKbohNv t8Tdw7kzJsZqifXfA1qhN8J yZHJoZWFkXHBnYnJkcmZvb3 Ljy2SflNTgnDh2e3omKMLdG GGreFvos3hrPTJ2ZLHhN3W9 gJDsa7ovSVzzXIDgbNS7ckE 5ZDLiqSBbS4EndL3bFNJfJD 4ieyd1b1ocLSJ5UNwrYIUyP pC6xgI2OWTauUXtKJJvgVvt TSjhe977KRO1TjRlFIUrb2J cF2YofHmhO24zyWbaF36tWM WbwJjiwC2wkZtfhH1aTeEkL nMyNFxxbFxwbGFpblxmMVxm xoSoLUumydyfUXGyLRidL4o uYnJvKRJniKkwDFdop4ThXO IzUKXpXtYwVTDyeFBjj6Odw 6WpPzTuiQWjsO0bxEwbnxB1 LKNtgIQoIu0aoCGbZnOnuXX yfQ== [facility] Pathologic Diagnosis d1izsGRzDKYzpVZdBXX wNVx kpvHdLGWqkRRjT9SyajcwOH qySB2fGG8ouAfjzDDatSAeO AAtVkMid4klp202pYWoz0bm KKEKrutjfWs4t0zkHQVKcH3 vl5t7iB03WYRcoE5leTMnPX rvjyJeNNjdkzUjzfOmDiv5Q RZ8xTggAswwoUT0jUNipEF8 FHypb4WytCyosMstSQKbWFS rABD9C8trbPM8eWHhzBienG PrCI4wu6vrrNO4aqIbBPD0j BdqrVK0xSmjqwslu2gmoJJ5 uNY1NDnlkMD5LHwyTmIrP4g mOCWbbF9dG86xM8dpNGPtvV ztFHwqPQCvcZQ5IFC5OCQsy 1xsZXZlbHRleHRcJzAxXCdi Krf2g3etMLQyuV82vSIariM 7fVxmMVxmczIwXGxpMzYwXG ZpMTgwfXtcbGlzdGxldmVsX QmotyRogdRnLvUqsFQ0JHyy UcWvKoGctLJ3YBqnWxXadXU 5TNqstVHhmLF9CNewmYT8BS h3DSm9IUdsPHciMxj5cJxan YP8ICzmiY4eECYzO91vDzWj NqEjNK18WLqry9HkRXNipIo qSXYwvW7yDbApNMeoksNhua ZjbjIzXGxldmVsamMwXGxld aTuh1GifvJfeCH5BCfuglEn dCI5mPftQZKhV5O0V605SZn uqgLjyzDcPsBepmf5OVCdCV MbFaC5p3ktwXI3wXM4TOymz IC4HXksYvDdG0utDGNpeI1m J03sW2juXYDwaTlyTNxgURV ikPS2XMS1VVFfi6mbXJSouY XspKRrFtScQFvhVhh0l9esC YRulO91dEDfyhC9sBnlGDcf czIwfXtcbGlzdGxldmVsXGx gueDacpUkSoCgyMY8RBipVt NbEhUbyCD3PPviSrEctJN5Q VnugISmnYC6CDuulCA6APd8 WJc7QRyeHWiwYgz4eKfsiNX 4KOilmA0wNWArK56zLxEyDt ReIN95CDubz9FuEMFulOzuR HGbeE4pSyHzTWdmuwKqvgGt bjIzXGxldmVsamMwXGxldmV sl6LeerObrXZ5JAtbdiDzaR B6qFnoBQQtT9U8O686MLgyz xKhzpNsZmJaogo8ZZMfAYYm TkK5o4evfPX6sTS9AAvuhIS 1UQosDeQdM5evCNDbkC3zL3 0eU6bxIEZiuThmKUuvNVVji UG8YUA3BQGky4evROPhkTHj lBQmMkLcSRmlIai5d4bmLWC txD79dEEfttA4aAxnBNlkhv IwfXtcbGlzdGxldmVsXGxld hPucdMwHsGcmKP3EIzlNzYn QlLrjEH2QGcyDtLblXQ4JSn xyEFnnGS1XAdcbWF5FEh0BV u3IAzvOXxuVvc7pNtpoWB5A QumoB6sEGYiY33jDiBrZyTt BO74PJkbt5AvVRVynOnhMIH hwX8pJkVsNPruepFbqiLzgj IzXGxldmVsamMwXGxldmVsc 1HhrmEwyRU2JLgyevQzxBC1 kFsqIFMnA5U5H733YCapdwI pniQkOdEgttv7KHDsDSVsBj H1sC76JStujPjjxF99ECQwq DYsrBEfoGR7KAsxaVeciI65 ERJxmTJlVIycs3GyAYKuReI 8HsTgUQKmqMzopQ34JKYqdU AsU761gnXjHVuaHV59PWFwq GVydzEyMjQwXHBhcGVyaDE1 KTRqWR0cjndqZEjyNIbpNZU tclU5SSUjxFKnT8RbLDCtUB 7npvnpTZR5FMxvYMRiITU3M lGlGPQts6Fnusu3VhAgrWIw MTrprQHhxkclXMCbHkTvU2E vGPLyEYF9c99aX7maYQIjm4 BzeTpccGFyXGxpMzYwXGZpM QbpEXmxknI4EJeaunOtkKh4 pSUnbQwdcM4yCplvdkDyMPU eRVNQt2QnwYKvgq8nqV4zHU JzheRMcoHXFTxrS60nEKT7J ZPimGrdz4MoKYmrGT35wNGm ZWRccGFyfQ== [facility] Professional Interpretation Performed at: i2lzfFUmTSGcoRJdUdLfTYP yRONjt1ogMKYprXZkJaKtHm NcZnRuYmpcdWMxXGRlZmYwe 8yxs561dLPqq8hvVJUoStN3 qTFgKSWudIWdJ727NGKcNHo gw2ccn4DcRQEwtCVai6M4DM XPsydhjYq3rZdkH82kr5Z6R axuC0kcEBGeUILnL8FnYU0r KHVzZli2XZV5PXB2WQMgQRA tO5XxHB3gLKQwdRUhKQv0p4 vzdHugENGxFDQ0l5hbPHxjl uZmTB6phz2wxMk8s3rcmsAj TQSxYZCghDQMCNDqV0MfnQy nJm8kgAs7jBtgUlzyQAW8Jm d3JS9rla81uxx6nLzjHQXdm fchBaS2ONrhGWEnmihdDRh3 ODdcNZQijJN1HUBqhRAcS3Z vEOYpJY9ehgj2NTY3NAuoLK ZlVwW7PFVerFJlPGPtpSrlB Lrkh911KQD6NuPjPZ1yT5Vr g7A7bJ0pgDMgJAWwqIDzLvI eOCGxgw6pcBZxJTlra1UdBN C3fhW1cYRcpIXfZHOzOQ34B werc8LsEmlyCFD3YRKeltUc f6Haa5faBbLmoyJtL2eqH4C yZHJoZWFkXHBnYnJkcmZvb3 Gsy9KytIHqoDp7d6dvELEyH YLkxXimi0elTMK8ULLwJ0D7 rLGag3qjQHgzKODpyUP4exR 7CCSpaUYwG1VnyK6uXCRgFD 6wzni3z7ylZGS2SDddFUUbS rR0bwU8LPUntUPkSCVaoIoy YLrow270JKN6DiHzDYIqg2B wO9BscApeU75sjQocG16mPA ZryBqouW4shKaweJ3mNrAfL nMyNFxwYXJkXHBsYWluXGYx XGZzMjJcbGFuZzEwMzNcaGl jaFxmMVxkYmNoXGYxXGxvY2 qnFbMgEjRdInMRW5TuX1UKM lEGHF9JNLkMHHaxU5NLVBCS VHKHPP3GK0CQILbTUy0UEPE VHnbcxZBkWBDcCOCQEHK2KQ XzyXstAPDqUPDrekGBy0y8v XO7jhkxE6wscmH2JnDuAStw YXJ9 [facility] CBC,PLATELETSon 08-11-2024 Erythrocyte distribution width (RBC) [Ratio] 13.7 % 10.8 - 14.9 % [facility] Hematocrit (Bld) [Volume fraction] 43.2 % 34.9 - 44.3 % [facility] Hemoglobin (Bld) [Mass/Vol] 14 g/dL 11.4 - 15.2 g/dL [facility] Interpretation and review of laboratory results Abnormal [facility] MCH (RBC) [Entitic mass] 29.9 pg 25.9 - 33.9 pg [facility] MCHC (RBC) [Mass/Vol] 32.4 g/dL 31.4 - 35.9 g/dL [facility] MCV (RBC) [Entitic vol] 92.1 fL 79.6 - 97.7 fL [facility] Platelet mean volume (Bld) [Entitic vol] 11.5 fL 8.5 - 12.2 fL [facility] Platelets (Bld) [#/Vol] 240 10*3/uL 150 - 393 K/uL [facility] RBC (Bld) [#/Vol] 4.69 10*6/uL [facility] WBC (Bld) [#/Vol] 11.76 10*3/uL High 3.99 - 11.19 K/uL [facility] Hematocrit (Bld) [Volume fraction] 43.2 % Normal 34.9-44.3 [facility] Comment on above: Performed By: #### T YPEC #### [facility] (DEFAULT) [address] [address] Hemoglobin (Bld) [Mass/Vol] 14.0 g/dL Normal 11.4-15.2 [facility] Comment on above: Performed By: #### T YPEC #### [facility] (DEFAULT) [address] [address] MCV (RBC) [Entitic vol] 92.1 fL Normal 79.6-97.7 [facility] Comment on above: Performed By: #### T YPEC #### [facility] (DEFAULT) [address] [address] Mean Cell Hgb 29.9 pg Normal 25.9-33.9 [facility] Comment on above: Performed By: #### T YPEC #### [facility] (DEFAULT) [address] [address] Mean Cell Hgb Conc 32.4 g/dL Normal 31.4-35.9 [facility] Comment on above: Performed By: #### T YPEC #### [facility] (DEFAULT) [address] [address] Platelet mean volume (Bld) [Entitic vol] 11.5 fL Normal 8.5-12.2 [facility] Comment on above: Performed By: #### T YPEC #### [facility] (DEFAULT) [address] [address] Platelets (Bld) [#/Vol] 240 10*3/uL Normal 150-393 [facility] Comment on above: Performed By: #### T YPEC #### [facility] (DEFAULT) [address] [address] RBC (Bld) [#/Vol] 4.69 10*6/uL Normal 3.91-5.04 [facility] Comment on above: Performed By: #### T YPEC #### [facility] (DEFAULT) [address] [address] RBC Distribution 13.7 % Normal 10.8-14.9 [facility] Comment on above: Performed By: #### T YPEC #### [facility] (DEFAULT) [address] [address] WBC (Bld) [#/Vol] 11.76 10*3/uL High 3.99-11.19 [facility] Comment on above: Performed By: #### T YPEC #### [facility] (DEFAULT) [address] [place] [address] CHEM 7 (LYTES,BUN,CREA,GLUC) on 08-11-2024 Anion gap [Moles/Vol] 14 mmol/L 7 - 17 mmol/L [facility] Chloride [Moles/Vol] 103 mmol/L 98 - 10 8 mmol/L [facility] CO2 [Moles/Vol] 26 mmol/L 21 - 31 mmol/L [facility] Creatinine [Mass/Vol] 1.32 mg/dL High 0.50 - 1.20 mg/dL [facility] eGFR, CKD-EPI, Female 41 Low - PINF [facility] Glucose [Mass/Vol] 127 mg/dL 70 - 179 mg/dL [facility] Interpretation and review of laboratory results Abnormal [facility] Osmolality Calc [Osmolality] 306 High [facility] Potassium [Moles/Vol] 4.6 mmol/L 3.5 - 5.0 mmol/L [facility] Sodium [Moles/Vol] 138 mmol/L 135 - 145 mmol/L [facility] Urea nitrogen [Mass/Vol] 53 mg/dL High 7 - 25 mg/dL [facility] Urea nitrogen/Creatinine [Mass ratio] 40 mg/mg [facility] Anion gap [Moles/Vol] 14 mmol/L Normal 7-17 [facility] Comment on above: Performed By: #### [facility] #### [facility] (DEFAULT) [address] [place] [address] Chloride [Moles/Vol] 103 mmol/L Normal 98-108 [facility] Comment on above: Performed By: #### H [facility] #### [facility] (DEFAULT) [address] [place] [address] CO2 [Moles/Vol] 26 mmol/L Normal 21-31 [facility] Comment on above: Performed By: #### H [facility] #### [facility] (DEFAULT) [address] [place] [address] Creatinine [Mass/Vol] 1.32 mg/dL High 0.50-1.20 [facility] Comment on above: Performed By: #### H [facility] #### [facility] (DEFAULT) [address] [address] GFR/1.73 sq M.predicted among non-blacks MDRD (S/P/Bld) [Vol rate/Area] 41 mL/min/{1.73_m2} Low >=60 [facility] Comment on above: Result Comment: Repo rted eGFR is based on the CKD-EPI 2020 equation using creatinine, age, and sex. Performed By: #### H [facility] #### [facility] (DEFAULT) [address] [address] Glucose [Mass/Vol] 127 mg/dL Normal Nonfastin -179 mg/dL; Fastin-99 [facility] Comment on above: Performed By: #### H EMO #### [facility] (DEFAULT) [address] [address] Osmolality [Osmolality] 306 mosm/kg High 278-305 [facility] Comment on above: Performed By: #### H EMO #### [facility] (DEFAULT) [address] [address] Potassium [Moles/Vol] 4.6 mmol/L Normal 3.5-5.0 [facility] Comment on above: Performed By: #### H EMO #### [facility] (DEFAULT) [address] [address] Sodium [Moles/Vol] 138 mmol/L Normal 135-145 [facility] Comment on above: Performed By: #### H EMOGC #### [facility] (DEFAULT) [address] [address] Urea nitrogen [Mass/Vol] 53 mg/dL High 7-25 [facility] Comment on above: Performed By: #### H EMOGC #### [facility] (DEFAULT) [address] [place] [address] Urea nitrogen/Creatinine [Mass ratio] 40 mg/mg Normal [facility] Comment on above: Performed By: #### H [facility] #### [facility] (DEFAULT) [address] [place] [address] GLUCOSE POCon 08-11-2024 Glucose [Mass/Vol] 213 mg/dL High 70 - 179 mg/dL [facility] Interpretation and review of laboratory results Abnormal [facility] POC Sample Type [facility] Glucose [Mass/Vol] 255 mg/dL High 70 - 179 mg/dL [facility] Interpretation and review of laboratory results Abnormal [facility] POC Sample Type [facility]BL [facility] Glucose [Mass/Vol] 190 mg/dL High 70 - 179 mg/dL [facility] Interpretation and review of laboratory results Abnormal [facility] POC Sample Type CAPBL [facility] Glucose [Mass/Vol] 205 mg/dL High 70 - 179 mg/dL [facility] Interpretation and review of laboratory results Abnormal [facility] POC Sample Type CAPBL [facility] MAGNESIUMon 08-11-2024 Interpretation and review of laboratory results Normal [facility] Magnesium [Mass/Vol] 1.9 mg/dL 1.6 - 2 .6 mg/dL [facility] Magnesium [Mass/Vol] 1.9 mg/dL Normal 1.6-2.6 [facility] Comment on above: Performed By: #### M [facility] #### [facility] (DEFAULT) [address] [place] [address] No Panel Informationon 08-11 [facility] BLOOD CULTUREon 08-10-2024 Bacteria identified Cx Nom (Unsp spec) NO GROWTH DAY 5 OF 5 Normal [facility] Comment on above: Order Comment: 2 [...] bottle. Performed By: #### T YPEC #### [facility] (DEFAULT) [address] [address] Bacteria identified Cx Nom (Unsp spec) NO GROWTH DAY 5 OF 5 Normal [facility] Comment on above: Order Comment: 2 [...] bottle. Performed By: #### B LDCULT #### [facility] (DEFAULT) [address] [address] CBC,PLATELETSon 08-10-2024 Erythrocyte distribution width (RBC) [Ratio] 13.3 % 10.8 - 14.9 % [facility] Hematocrit (Bld) [Volume fraction] 45.1 % High 34.9 - 44.3 % [facility] Hemoglobin (Bld) [Mass/Vol] 14.1 g/dL 11.4 - 15.2 g/dL [facility] Interpretation and review of laboratory results Abnormal [facility] MCH (RBC) [Entitic mass] 29.1 pg 25.9 - 33.9 pg [facility] MCHC (RBC) [Mass/Vol] 31.3 g/dL Low 31.4 - 35.9 g/dL [facility] MCV (RBC) [Entitic vol] 93 fL 79.6 - 97.7 fL [facility] Platelet mean volume (Bld) [Entitic vol] 11.4 fL 8.5 - 12.2 fL [facility] Platelets (Bld) [#/Vol] 216 10*3/uL 150 - 393 K/uL [facility] RBC (Bld) [#/Vol] 4.85 10*6/uL [facility] WBC (Bld) [#/Vol] 13.78 10*3/uL High 3.99 - 11.19 K/uL [facility] Hematocrit (Bld) [Volume fraction] 45.1 % High 34.9-44.3 [facility] Comment on above: Performed By: #### H [facility] #### [facility] (DEFAULT) [address] [address] Hemoglobin (Bld) [Mass/Vol] 14.1 g/dL Normal 11.4-15.2 [facility] Comment on above: Performed By: #### H EMO #### [facility] (DEFAULT) [address] [address] MCV (RBC) [Entitic vol] 93.0 fL Normal 79.6-97.7 [facility] Comment on above: Performed By: #### H EMO #### [facility] (DEFAULT) [address] [address] Mean Cell Hgb 29.1 pg Normal 25.9-33.9 [facility] Comment on above: Performed By: #### H EMO #### [facility] (DEFAULT) [address] [address] Mean Cell Hgb Conc 31.3 g/dL Low 31.4-35.9 [facility] Comment on above: Performed By: #### H EMOGC #### [facility] (DEFAULT) [address] [address] Platelet mean volume (Bld) [Entitic vol] 11.4 fL Normal 8.5-12.2 [facility] Comment on above: Performed By: #### H EMOGC #### [facility] (DEFAULT) [address] [place] [address] Platelets (Bld) [#/Vol] 216 10*3/uL Normal 150-393 [facility] Comment on above: Performed By: #### H EMOGC #### [facility] (DEFAULT) [address] [place] [address] RBC (Bld) [#/Vol] 4.85 10*6/uL Normal 3.91-5.04 [facility] Comment on above: Performed By: #### H EMOGC #### [facility] (DEFAULT) [address] [place] [address] RBC Distribution 13.3 % Normal 10.8-14.9 [facility] Comment on above: Performed By: #### H EMOGC #### [facility] (DEFAULT) [address] [place] [address] WBC (Bld) [#/Vol] 13.78 10*3/uL High 3.99-11.19 [facility] Comment on above: Performed By: #### H [facility] #### [facility] (DEFAULT) [address] [place] [address] CHEM 7 (LYTES,BUN,CREA,GLUC) on 08-10-2024 Anion gap [Moles/Vol] 16 mmol/L 7 - 17 mmol/L [facility] Chloride [Moles/Vol] 103 mmol/L 98 - 10 8 mmol/L [facility] CO2 [Moles/Vol] 24 mmol/L 21 - 31 mmol/L [facility] Creatinine [Mass/Vol] 1.36 mg/dL High 0.50 - 1.20 mg/dL [facility] eGFR, CKD-EPI, Female 40 Low - PINF [facility] Glucose [Mass/Vol] 186 mg/dL High 70 - 179 mg/dL [facility] Interpretation and review of laboratory results Abnormal [facility] Osmolality Calc [Osmolality] 308 High [facility] Potassium [Moles/Vol] 4.9 mmol/L 3.5 - 5.0 mmol/L [facility] Sodium [Moles/Vol] 138 mmol/L 135 - 145 mmol/L [facility] Urea nitrogen [Mass/Vol] 47 mg/dL High 7 - 25 mg/dL [facility] Urea nitrogen/Creatinine [Mass ratio] 35 mg/mg [facility] Anion gap [Moles/Vol] 16 mmol/L Normal 7-17 [facility] Comment on above: Performed By: #### Jaiden NGUYEN CHM7 ####[facility] (DEFAULT)[address] [place] [address] Chloride [Moles/Vol] 103 mmol/L Normal 98-108 [facility] Comment on above: Performed By: #### Jaiden NGUYEN CHM7 ####[facility] (DEFAULT)[address] [facility] [place] [address] CO2 [Moles/Vol] 24 mmol/L Normal 21-31 [facility] Comment on above: Performed By: #### Jaiden NGUYEN CHM7 ####[facility] (DEFAULT)[address] [place] [address] Creatinine [Mass/Vol] 1.36 mg/dL High 0.50-1.20 [facility] Comment on above: Performed By: #### Jaiden NGUYEN CHM7 ####[facility] (DEFAULT)[address] [place] [address] GFR/1.73 sq M.predicted among non-blacks MDRD (S/P/Bld) [Vol rate/Area] 40 mL/min/{1.73_m2} Low >=60 [facility] Comment on above: Result Comment: Repo rted eGFR is based on the CKD-EPI 2020 equation using creatinine, age, and sex. Performed By: #### Jaiden NGUYEN CHM7 ####[facility] (DEFAULT)[address] [place] [address] Glucose [Mass/Vol] 186 mg/dL High Nonfastin -179 mg/dL; Fastin-99 [facility] Comment on above: Performed By: #### HEYDI PALACIOS7 ####[facility] (DEFAULT)[address] [place] [address] Osmolality [Osmolality] 308 mosm/kg High 278-305 [facility] Comment on above: Performed By: #### HEYDI PALACIOS7 ####[facility] (DEFAULT)[address] [facility] [place] [address] Potassium [Moles/Vol] 4.9 mmol/L Normal 3.5-5.0 [facility] Comment on above: Performed By: #### HEYDI PALACIOS7 ####[facility] (DEFAULT)[address] [place] [address] Sodium [Moles/Vol] 138 mmol/L Normal 135-145 [facility] Comment on above: Performed By: #### HEYDI PALACIOS7 ####[facility] (DEFAULT)[address] [place] [address] Urea nitrogen [Mass/Vol] 47 mg/dL High 7-25 [facility] Comment on above: Performed By: #### Jaiden NGUYEN CHM7 ####[facility] (DEFAULT)[address] [facility] [place] [address] Urea nitrogen/Creatinine [Mass ratio] 35 mg/mg Normal [facility] Comment on above: Performed By: #### Jaiden NGUYEN CHM7 ####[facility] (DEFAULT)[address] [facility] [place] [address] GLUCOSE POCon 08-10-2024 Glucose [Mass/Vol] 144 mg/dL 70 - 179 mg/dL [facility] POC Sample Type CAPBL [facility] Glucose [Mass/Vol] 177 mg/dL 70 - 179 mg/dL [facility] Glucose [Mass/Vol] 180 mg/dL High 70 - 179 mg/dL [facility] Interpretation and review of laboratory results Abnormal [facility] POC Sample [facility] Glucose [Mass/Vol] 193 mg/dL High 70 - 179 mg/dL [facility] Interpretation and review of laboratory results Abnormal [facility] Glucose [Mass/Vol] 200 mg/dL High 70 - 179 mg/dL [facility] Interpretation and review of laboratory results Abnormal [facility] Glucose [Mass/Vol] 198 mg/dL High 70 - 179 mg/dL [facility] Interpretation and review of laboratory results Abnormal [facility] MAGNESIUMon 08-10-2024 Interpretation and review of laboratory results Normal [facility] Magnesium [Mass/Vol] 1.8 mg/dL 1.6 - 2 .6 mg/dL [facility] Magnesium [Mass/Vol] 1.8 mg/dL Normal 1.6-2.6 [facility] Comment on above: Performed By: #### M , [facility] ####[facility] (DEFAULT)[address] [place] [address] No Panel Informationon 08-10 [facility] URINE CULTUREOrdered By: Franklin Carcamo on 08-10-2024 Bacteria identified Cx Nom (Unsp spec) Growth [facility] Bacteria identified Cx Nom (Unsp spec) KLEBSIELLA PNEUMONIAE Abnormal [facility] Interpretation and review of laboratory results Abnormal [facility] CBC,PLATELETSon 08-09-2024 Erythrocyte distribution width (RBC) [Ratio] 13.5 % 10.8 - 14.9 % [facility] Hematocrit (Bld) [Volume fraction] 44.4 % High 34.9 - 44.3 % [facility] Hemoglobin (Bld) [Mass/Vol] 14.1 g/dL 11.4 - 15.2 g/dL [facility] Interpretation and review of laboratory results Abnormal [facility] MCH (RBC) [Entitic mass] 29.4 pg 25.9 - 33.9 pg [facility] MCHC (RBC) [Mass/Vol] 31.8 g/dL 31.4 - 35.9 g/dL [facility] MCV (RBC) [Entitic vol] 92.7 fL 79.6 - 97.7 fL [facility] Platelet mean volume (Bld) [Entitic vol] 11.5 fL 8.5 - 12.2 fL [facility] Platelets (Bld) [#/Vol] 226 10*3/uL 150 - 393 K/uL [facility] RBC (Bld) [#/Vol] 4.79 10*6/uL [facility] WBC (Bld) [#/Vol] 12.37 10*3/uL High 3.99 - 11.19 K/uL [facility] Hematocrit (Bld) [Volume fraction] 44.4 % High 34.9-44.3 [facility] Comment on above: Performed By: #### [facility] #### [facility] (DEFAULT) [address] [address] Hemoglobin (Bld) [Mass/Vol] 14.1 g/dL Normal 11.4-15.2 [facility] Comment on above: Performed By: #### H [facility] #### [facility] (DEFAULT) [address] [place] [address] MCV (RBC) [Entitic vol] 92.7 fL Normal 79.6-97.7 [facility] Comment on above: Performed By: #### H EMOGC #### [facility] (DEFAULT) [address] [address] Mean Cell Hgb 29.4 pg Normal 25.9-33.9 [facility] Comment on above: Performed By: #### H EMOGC #### [facility] (DEFAULT) [address] [address] Mean Cell Hgb Conc 31.8 g/dL Normal 31.4-35.9 [facility] Comment on above: Performed By: #### H EMOGC #### [facility] (DEFAULT) [address] [address] Platelet mean volume (Bld) [Entitic vol] 11.5 fL Normal 8.5-12.2 [facility] Comment on above: Performed By: #### H EMOGC #### [facility] (DEFAULT) [address] [address] Platelets (Bld) [#/Vol] 226 10*3/uL Normal 150-393 [facility] Comment on above: Performed By: #### H EMOGC #### [facility] (DEFAULT) [address] [address] RBC (Bld) [#/Vol] 4.79 10*6/uL Normal 3.91-5.04 [facility] Comment on above: Performed By: #### H EMOGC #### [facility] (DEFAULT) [address] [address] RBC Distribution 13.5 % Normal 10.8-14.9 [facility] Comment on above: Performed By: #### H EMOGC #### [facility] (DEFAULT) [address] [address] WBC (Bld) [#/Vol] 12.37 10*3/uL High 3.99-11.19 [facility] Comment on above: Performed By: #### H EMOGC #### [facility] (DEFAULT) [address] [place] [address] CHEM 7 (LYTES,BUN,CREA,GLUC) on 08-09-2024 Anion gap [Moles/Vol] 14 mmol/L 7 - 17 mmol/L [facility] Chloride [Moles/Vol] 103 mmol/L 98 - 10 8 mmol/L [facility] CO2 [Moles/Vol] 26 mmol/L 21 - 31 mmol/L [facility] Creatinine [Mass/Vol] 1.35 mg/dL High 0.50 - 1.20 mg/dL [facility] eGFR, CKD-EPI, Female 40 Low - PINF [facility] Glucose [Mass/Vol] 182 mg/dL High 70 - 179 mg/dL [facility] Interpretation and review of laboratory results Abnormal [facility] Osmolality Calc [Osmolality] 305 [facility] Potassium [Moles/Vol] 4.9 mmol/L 3.5 - 5.0 mmol/L [facility] Sodium [Moles/Vol] 138 mmol/L 135 - 145 mmol/L [facility] Urea nitrogen [Mass/Vol] 38 mg/dL High 7 - 25 mg/dL [facility] Urea nitrogen/Creatinine [Mass ratio] 28 mg/mg [facility] Anion gap [Moles/Vol] 14 mmol/L Normal 7-17 [facility] Comment on above: Performed By: #### H [facility] #### [facility] (DEFAULT) [address] [place] [address] Chloride [Moles/Vol] 103 mmol/L Normal 98-108 [facility] Comment on above: Performed By: #### H [facility] #### [facility] (DEFAULT) [address] [place] [address] CO2 [Moles/Vol] 26 mmol/L Normal 21-31 [facility] Comment on above: Performed By: #### H [facility] #### [facility] (DEFAULT) [address] [place] [address] Creatinine [Mass/Vol] 1.35 mg/dL High 0.50-1.20 [facility] Comment on above: Performed By: #### H [facility] #### [facility] (DEFAULT) [address] [address] GFR/1.73 sq M.predicted among non-blacks MDRD (S/P/Bld) [Vol rate/Area] 40 mL/min/{1.73_m2} Low >=60 [facility] Comment on above: Result Comment: Repo rted eGFR is based on the CKD-EPI 2020 equation using creatinine, age, and sex. Performed By: #### H [facility] #### [facility] (DEFAULT) [address] [address] Glucose [Mass/Vol] 182 mg/dL High Nonfastin -179 mg/dL; Fastin-99 [facility] Comment on above: Performed By: #### H EMO #### [facility] (DEFAULT) [address] [address] Osmolality [Osmolality] 305 mosm/kg Normal 278-305 [facility] Comment on above: Performed By: #### H EMO #### [facility] (DEFAULT) [address] [address] Potassium [Moles/Vol] 4.9 mmol/L Normal 3.5-5.0 [facility] Comment on above: Performed By: #### H [facility] #### [facility] (DEFAULT) [address] [address] Sodium [Moles/Vol] 138 mmol/L Normal 135-145 [facility] Comment on above: Performed By: #### H EMOGC #### [facility] (DEFAULT) [address] [address] Urea nitrogen [Mass/Vol] 38 mg/dL High 7-25 [facility] Comment on above: Performed By: #### H EMO #### [facility] (DEFAULT) [address] [place] [address] Urea nitrogen/Creatinine [Mass ratio] 28 mg/mg Normal [facility] Comment on above: Performed By: #### H [facility] #### [facility] (DEFAULT) [address] [place] [address] EXTRA MICROon 08-09-2024 [facility] GLUCOSE POCon 08-09-2024 Glucose [Mass/Vol] 186 mg/dL High 70 - 179 mg/dL [facility] Interpretation and review of laboratory results Abnormal [facility] POC Sample Type CAPBL [facility] Glucose [Mass/Vol] 255 mg/dL High 70 - 179 mg/dL [facility] Interpretation and review of laboratory results Abnormal [facility] POC Sample Type CAPBL [facility] Glucose [Mass/Vol] 235 mg/dL High 70 - 179 mg/dL [facility] Interpretation and review of laboratory results Abnormal [facility] POC Sample Type CAPBL [facility] Glucose [Mass/Vol] 167 mg/dL 70 - 179 mg/dL [facility] POC Sample Type CAPBL [facility] INTERVENTIONAL UPPER ENDOSCO PYon 08-09-2024 Body surface area Derived from formula 1.9 m2 [facility] (narrative) [facility] MAGNESIUMon 08-09-2024 Interpretation and review of laboratory results Normal [facility] Magnesium [Mass/Vol] 1.8 mg/dL 1.6 - 2 .6 mg/dL [facility] Magnesium [Mass/Vol] 1.8 mg/dL Normal 1.6-2.6 [facility] Comment on above: Performed By: #### H [facility] #### [facility] (DEFAULT) [address] [place] [address] No Panel Informationon 08-09 [facility] PT,INR,PTTon 08-09-2024 aPTT Coag (PPP) [Time] 38.4 s High [facility] INR Coag (Bld) [Relative time] 1 {INR} 0.9 - 1.1 [facility] Interpretation and review of laboratory results Abnormal [facility] PT Coag (PPP) [Time] 13 s [facility] aPTT Coag (Bld) [Time] 38.4 s High 24.0-34.3 [facility] Comment on above: Performed By: #### B LDCULT #### [facility] (DEFAULT) [address] [place] [address] INR Coag (PPP) [Relative time] 1.0 {INR} Normal 0.9-1.1 [facility] Comment on above: Performed By: #### B LDCULT #### [facility] (DEFAULT) [address] [place] [address] PT Coag (PPP) [Time] 13.0 s Normal 11.9-14.2 [facility] Comment on above: Performed By: #### B LDCULT #### [facility] (DEFAULT) [address] [place] [address] SURG PATH REQUESTon 08-10-19 Case Report [facility] Comment on above: Result Comment: Surg ical Pathology Report Case: [id number] Authorizing Provider: Judson Keith DO Collected: 08/09/2024 10:07 AM Ordering Location: [facility] Received: 08/09/2024 12:13 PM Pathologist: Renae Glez MD Specimen: STOMACH, gastric, r/o HP Performed By: #### S URGP #### [facility] (DEFAULT) [address] [address] Clinical History R/O HP. Associated Diagnosis: None. Medical History: No medical history provided. Normal [facility] Comment on above: Performed By: #### S URGP #### [facility] (DEFAULT) [address] [place] [address] Gross Description [facility] Comment on above: Result Comment: The specimen is received in one properly labeled container with the patient's name and accession number. A. The specimen is designated "gastric, r/o hp" and consists of five fragments of jackson-pink soft tissue, from 0.2 up to 0.6 cm in greatest dimension. TE 1 Lab Use Only: JobID [id number] Grosser for this case was: Sunshine Hidalgo Performed By: #### S URGP #### [facility] (DEFAULT) [address] [place] [address] Microscopic Description A microscopic examination was performed. [facility] Comment on above: Performed By: #### S URGP #### [facility] (DEFAULT) [address] [address] Pathologic Diagnosis [facility] Comment on above: Result Comment: Anjelica echols, biopsy: Focal erosion No Helicobacter pylori identified at 1005 EDT Performed By: #### S URGP #### [facility] (DEFAULT) [address] [address] Professional Interpretation Performed at: [facility] Comment on above: Result Comment: [facility] For Immediate Release to Patient's [facility]? Yes [address] [address] Performed By: #### S URGP #### [facility] (DEFAULT) [address] [address] CBC,PLATELETSon 08-08-2024 Erythrocyte distribution width (RBC) [Ratio] 13.6 % 10.8 - 14.9 % [facility] Hematocrit (Bld) [Volume fraction] 45.7 % High 34.9 - 44.3 % [facility] Hemoglobin (Bld) [Mass/Vol] 14.4 g/dL 11.4 - 15.2 g/dL [facility] Interpretation and review of laboratory results Abnormal [facility] MCH (RBC) [Entitic mass] 29.4 pg 25.9 - 33.9 pg [facility] MCHC (RBC) [Mass/Vol] 31.5 g/dL 31.4 - 35.9 g/dL [facility] MCV (RBC) [Entitic vol] 93.3 fL 79.6 - 97.7 fL [facility] Platelet mean volume (Bld) [Entitic vol] 10.9 fL 8.5 - 12.2 fL [facility] Platelets (Bld) [#/Vol] 212 10*3/uL 150 - 393 K/uL [facility] RBC (Bld) [#/Vol] 4.9 10*6/uL [facility] WBC (Bld) [#/Vol] 10.39 10*3/uL 3.99 - 11.19 K/uL [facility] Hematocrit (Bld) [Volume fraction] 45.7 % High 34.9-44.3 [facility] Comment on above: Performed By: #### H [facility] #### [facility] (DEFAULT) [address] [address] Hemoglobin (Bld) [Mass/Vol] 14.4 g/dL Normal 11.4-15.2 [facility] Comment on above: Performed By: #### H [facility] #### [facility] (DEFAULT) [address] [place] [address] MCV (RBC) [Entitic vol] 93.3 fL Normal 79.6-97.7 [facility] Comment on above: Performed By: #### H [facility] #### [facility] (DEFAULT) [address] [place] [address] Mean Cell Hgb 29.4 pg Normal 25.9-33.9 [facility] Comment on above: Performed By: #### H [facility] #### [facility] (DEFAULT) [address] [place] [address] Mean Cell Hgb Conc 31.5 g/dL Normal 31.4-35.9 [facility] Comment on above: Performed By: #### H EMOGC #### [facility] (DEFAULT) [address] [place] [address] Platelet mean volume (Bld) [Entitic vol] 10.9 fL Normal 8.5-12.2 [facility] Comment on above: Performed By: #### H EMOGC #### [facility] (DEFAULT) [address] [place] [address] Platelets (Bld) [#/Vol] 212 10*3/uL Normal 150-393 [facility] Comment on above: Performed By: #### H EMOGC #### [facility] (DEFAULT) [address] [place] [address] RBC (Bld) [#/Vol] 4.90 10*6/uL Normal 3.91-5.04 [facility] Comment on above: Performed By: #### H EMOGC #### [facility] (DEFAULT) [address] [place] [address] RBC Distribution 13.6 % Normal 10.8-14.9 [facility] Comment on above: Performed By: #### H EMOGC #### [facility] (DEFAULT) [address] [place] [address] WBC (Bld) [#/Vol] 10.39 10*3/uL Normal 3.99-11.19 [facility] Comment on above: Performed By: #### H EMOGC #### [facility] (DEFAULT) [address] [place] [address] CHEM 7 (LYTES,BUN,CREA,GLUC) on 08-08-2024 Anion gap [Moles/Vol] 15 mmol/L 7 - 17 mmol/L [facility] Chloride [Moles/Vol] 104 mmol/L 98 - 10 8 mmol/L [facility] CO2 [Moles/Vol] 25 mmol/L 21 - 31 mmol/L [facility] Creatinine [Mass/Vol] 1.15 mg/dL 0.50 - 1.20 mg/dL [facility] eGFR, CKD-EPI, Female 48 Low - PINF [facility] Glucose [Mass/Vol] 111 mg/dL 70 - 179 mg/dL [facility] Interpretation and review of laboratory results Abnormal [facility] Osmolality Calc [Osmolality] 302 [facility] Potassium [Moles/Vol] 4.3 mmol/L 3.5 - 5.0 mmol/L [facility] Sodium [Moles/Vol] 140 mmol/L 135 - 145 mmol/L [facility] Urea nitrogen [Mass/Vol] 35 mg/dL High 7 - 25 mg/dL [facility] Urea nitrogen/Creatinine [Mass ratio] 30 mg/mg [facility] Anion gap [Moles/Vol] 15 mmol/L Normal 7-17 [facility] Comment on above: Performed By: #### Jaiden NGUYEN CHM7 ####[facility] (DEFAULT)[address] [place] [address] Chloride [Moles/Vol] 104 mmol/L Normal 98-108 [facility] Comment on above: Performed By: #### Jaiden NGUYEN CHM7 ####[facility] (DEFAULT)[address] [place] [address] CO2 [Moles/Vol] 25 mmol/L Normal 21-31 [facility] Comment on above: Performed By: #### Jaiden NGUYEN CHM7 ####[facility] (DEFAULT)[address] [place] [address] Creatinine [Mass/Vol] 1.15 mg/dL Normal 0.50-1.20 [facility] Comment on above: Performed By: #### Jaiden NGUYEN CHM7 ####[facility] (DEFAULT)[address] [place] [address] GFR/1.73 sq M.predicted among non-blacks MDRD (S/P/Bld) [Vol rate/Area] 48 mL/min/{1.73_m2} Low >=60 [facility] Comment on above: Result Comment: Repo rted eGFR is based on the CKD-EPI 2020 equation using creatinine, age, and sex. Performed By: #### HEYDI PALACIOS7 ####[facility] (DEFAULT)[address] [place] [address] Glucose [Mass/Vol] 111 mg/dL Normal Nonfastin -179 mg/dL; Fastin-99 [facility] Comment on above: Performed By: #### HEYDI PALACIOS7 ####[facility] (DEFAULT)[address] [place] [address] Osmolality [Osmolality] 302 mosm/kg Normal 278-305 [facility] Comment on above: Performed By: #### CAMERON PALACIOS ####[facility] (DEFAULT)[address] [place] [address] Potassium [Moles/Vol] 4.3 mmol/L Normal 3.5-5.0 [facility] Comment on above: Performed By: #### HEYDI PALACIOS7 ####[facility] (DEFAULT)[address] [place] [address] Sodium [Moles/Vol] 140 mmol/L Normal 135-145 [facility] Comment on above: Performed By: #### HEYDI PALACIOS7 ####[facility] (DEFAULT)[address] [facility] [place] [address] Urea nitrogen [Mass/Vol] 35 mg/dL High 7-25 [facility] Comment on above: Performed By: #### HEYDI PALACIOS7 ####[facility] (DEFAULT)[address] [place] [address] Urea nitrogen/Creatinine [Mass ratio] 30 mg/mg Normal [facility] Comment on above: Performed By: #### M CHM7 ####[facility] (DEFAULT)[address] [place] [address] CT HEAD WITHOUT CONTRASTon 0 08-08-2024 CT [...] reviewed and approved this report. Normal [facility] CT Head WO contraston 2024 RAD[facility]OLOG[facility]Y [facility] (narrative) [facility] GLUCOSE POCon 08-08-2024 Glucose [Mass/Vol] 150 mg/dL 70 - 179 mg/dL [facility] POC Sample Type [facility] Glucose [Mass/Vol] 148 mg/dL 70 - 179 mg/dL [facility] POC Sample Type [facility] Glucose [Mass/Vol] 192 mg/dL High 70 - 179 mg/dL [facility] Interpretation and review of laboratory results Abnormal [facility] POC Sample Type [facility] Glucose [Mass/Vol] 198 mg/dL High 70 - 179 mg/dL [facility] Interpretation and review of laboratory results Abnormal [facility] POC Sample Type [facility]BL [facility] Glucose [Mass/Vol] 186 mg/dL High 70 - 179 mg/dL [facility] Interpretation and review of laboratory results Abnormal [facility] POC Sample Type CAPBL [facility] MAGNESIUMon 08-08-2024 Interpretation and review of laboratory results Normal [facility] Magnesium [Mass/Vol] 1.7 mg/dL 1.6 - 2 .6 mg/dL [facility] Magnesium [Mass/Vol] 1.7 mg/dL Normal 1.6-2.6 [facility] Comment on above: Performed By: #### M [facility] ####[facility] (DEFAULT)[address] [place] [address] No Panel Informationon 08-08 [facility] URINALYSIS REFLEX TO CULTURE PERFORMABLEOrdered By: Danya Yates on 08-08-2024 Appearance (U) Cloudy Abnormal Clear [facility] Bacteria LM Ql (Urine sed) PRESENT Abnormal ABSENT [facility] Color (U) Yellow Yellow [facility] Epithelial cells.squamous LM Ql (Urine sed) 0-2/hpf 0-2/hpf, 3-5/hpf = 1+ [facility] Glucose Test strip (U) [Mass/Vol] Negative Negative [facility] Interpretation and review of laboratory results Abnormal [facility] Ketones (U) [Mass/Vol] Trace Abnormal Negative [facility] Leukocyte esterase Test strip Ql (U) Large Abnormal Negative [facility] Nitrite Ql (U) Positive Abnormal Negative [facility] pH (U) 7.0 [pH] 5.0 - 7.0 [facility] Protein (U) [Mass/Vol] Trace Abnormal Negative [facility] RBC (U) [#/Vol] Trace Abnormal Negative [facility] RBC LM.HPF (Urine sed) [#/Area] 6-10 Abnormal [facility] Specific gravity (U) [Rel density] 1.023 1.001 - 1.035 [facility] Urobilinogen (U) [Mass/Vol] 1.0 E.U./dL 0.2 E.U/dL, 1.0 E.U/dL [facility] WBC LM.HPF (Urine sed) [#/Area] /[HPF] [facility] URINALYSIS REFLEX TO CULTURE PERFORMABLEon 08-08-2024 Appearance (U) Cloudy Abnormal Clear [facility] Comment on above: Order Comment: For i ndwelling catheters, specimen collection is acceptable on catheter day 1 and 2 only. ? Performed By: #### T YPEC #### [facility] (DEFAULT) [address] [address] Bacteria PRESENT Abnormal ABSENT [facility] Comment on above: Order Comment: For i ndwelling catheters, specimen collection is acceptable on catheter day 1 and 2 only. ? Performed By: #### T YPEC #### [facility] (DEFAULT) [address] [address] Blood Urine Trace Abnormal Negative [facility] Comment on above: Order Comment: For i ndwelling catheters, specimen collection is acceptable on catheter day 1 and 2 only. ? Performed By: #### T YPEC #### [facility] (DEFAULT) [address] [place] [address] Color (U) Yellow Normal Yellow [facility] Comment on above: Order Comment: For i ndwelling catheters, specimen collection is acceptable on catheter day 1 and 2 only. ? Performed By: #### T YPEC #### [facility] (DEFAULT) [address] [place] [address] Glucose Ql (U) Negative Normal Negative [facility] Comment on above: Order Comment: For i ndwelling catheters, specimen collection is acceptable on catheter day 1 and 2 only. ? Performed By: #### T YPEC #### [facility] (DEFAULT) [address] [place] [address] Ketones Ql (U) Trace Abnormal Negative [facility] Comment on above: Order Comment: For i ndwelling catheters, specimen collection is acceptable on catheter day 1 and 2 only. ? Performed By: #### T YPEC #### [facility] (DEFAULT) [address] [place] [address] 34265 Leukocyte esterase Test strip Ql (U) Large Abnormal Negative [facility] Comment on above: Order Comment: For i ndwelling catheters, specimen collection is acceptable on catheter day 1 and 2 only. ? Performed By: #### T YPEC #### [facility] (DEFAULT) [address] [place] [address]2717 Nitrites Urine Positive Abnormal Negative [facility] Comment on above: Order Comment: For i ndwelling catheters, specimen collection is acceptable on catheter day 1 and 2 only. ? Performed By: #### T YPEC #### [facility] (DEFAULT) [address] [place] [address] pH (U) 7.0 [pH] Normal 5.0-7.0 [facility] Comment on above: Order Comment: For i ndwelling catheters, specimen collection is acceptable on catheter day 1 and 2 only. ? Performed By: #### T YPEC #### [facility] (DEFAULT) [address] [place] [address] 86284 Protein Urine Trace Abnormal Negative [facility] Comment on above: Order Comment: For i ndwelling catheters, specimen collection is acceptable on catheter day 1 and 2 only. ? Performed By: #### T YPEC #### [facility] (DEFAULT) [address] [address] RBC Urine 6-10 Abnormal 0-2 [facility] Comment on above: Order Comment: For i ndwelling catheters, specimen collection is acceptable on catheter day 1 and 2 only. ? Performed By: #### T YPEC #### [facility] (DEFAULT) [address] [address] Specific [place] Urine 1.023 Normal 1.001-1.035 O [facility] Comment on above: Order Comment: For i ndwelling catheters, specimen collection is acceptable on catheter day 1 and 2 only. ? Performed By: #### T YPEC #### [facility] (DEFAULT) [address] [address] Squamous/Epithelial Cells, Urine 0-2/hpf Normal 0-2/hpf, 3-5/hpf = 1+ [facility] Comment on above: Order Comment: For i ndwelling catheters, specimen collection is acceptable on catheter day 1 and 2 only. ? Performed By: #### T YPEC #### [facility] (DEFAULT) [address] [address] Urobilinogen Urine 1.0 E.U./dL Normal 0.2 E.U/d L, 1.0 E.U/dL [facility] Comment on above: Order Comment: For i ndwelling catheters, specimen collection is acceptable on catheter day 1 and 2 only. ? Performed By: #### T YPEC #### [facility] (DEFAULT) [address] [address] WBC LM.HPF (Urine sed) [#/Area] /[HPF] Abnormal 0 - 5 [facility] Comment on above: Order Comment: For i ndwelling catheters, specimen collection is acceptable on catheter day 1 and 2 only. ? Performed By: #### T YPEC #### [facility] (DEFAULT) [address] [address] URINE CULTUREon 08-08-2024 Amikacin [Susceptibility] <= Invalid Interpretation Code [facility] Comment on above: Order Comment: For [...] ? Performed By: #### T YPEC #### [facility] (DEFAULT) [address] [place] [address] Ampicillin [Susceptibility] >=32 Resistant [facility] Comment on above: Order Comment: For [...] ? Performed By: #### T YPEC #### [facility] (DEFAULT) [address] [place] [address] Ampicillin+Sulbactam [Susceptibility] >=32 Resistant [facility] Comment on above: Order Comment: For [...] ? Performed By: #### T YPEC #### [facility] (DEFAULT) [address] [place] [address] ceFAZolin [Susceptibility] >= Resistant [facility] Comment on above: Order Comment: For [...] Performed By: #### T YPEC #### [facility] (DEFAULT) [address] [address] Cefepime [Susceptibility] <= Invalid Interpretation Code [facility] Comment on above: Order Comment: For [...] Performed By: #### T YPEC #### [facility] (DEFAULT) [address] [address] cefTRIAXone [Susceptibility] <= Invalid Interpretation Code [facility] Comment on above: Order Comment: For [...] Performed By: #### T YPEC #### [facility] (DEFAULT) [address] [address] Ciprofloxacin [Susceptibility] >= Resistant [facility] Comment on above: Order Comment: For [...] ? Performed By: #### T YPEC #### [facility] (DEFAULT) [address] [address] Ertapenem [Susceptibility] <= Invalid Interpretation Code [facility] Comment on above: Order Comment: For [...] Performed By: #### T YPEC #### [facility] (DEFAULT) [address] [address] Gentamicin [Susceptibility] <= Invalid Interpretation Code [facility] Comment on above: Order Comment: For [...] ? Performed By: #### T YPEC #### [facility] (DEFAULT) [address] [address] levoFLOXacin [Susceptibility] >= Resistant [facility] Comment on above: Order Comment: For [...] Performed By: #### T YPEC #### [facility] (DEFAULT) [address] [address] Nitrofurantoin [Susceptibility] 128 ug/mL Resistant [facility] Comment on above: Order Comment: For [...] Performed By: #### T YPEC #### [facility] (DEFAULT) [address] [place] [address] Piperacillin+Tazobactam [Susceptibility] 8 ug/mL Invalid Interpretation Code [facility] Comment on above: Order Comment: For [...] ? Performed By: #### T YPEC #### [facility] (DEFAULT) [address] [place] [address] Trimethoprim+Sulfametho xazole [Susceptibility] <= Invalid Interpretation Code [facility] Comment on above: Order Comment: For [...] ? Performed By: #### T YPEC #### [facility] (DEFAULT) [address] [place] [address] CBC,PLATELETSon 08-07-2024 Erythrocyte distribution width (RBC) [Ratio] 13.9 % 10.8 - 14.9 % [facility] Hematocrit (Bld) [Volume fraction] 43.1 % 34.9 - 44.3 % [facility] Hemoglobin (Bld) [Mass/Vol] 13.7 g/dL 11.4 - 15.2 g/dL [facility] Interpretation and review of laboratory results Abnormal [facility] MCH (RBC) [Entitic mass] 29.6 pg 25.9 - 33.9 pg [facility] MCHC (RBC) [Mass/Vol] 31.8 g/dL 31.4 - 35.9 g/dL [facility] MCV (RBC) [Entitic vol] 93.1 fL 79.6 - 97.7 fL [facility] Platelet mean volume (Bld) [Entitic vol] 11.1 fL 8.5 - 12.2 fL [facility] Platelets (Bld) [#/Vol] 214 10*3/uL 150 - 393 K/uL [facility] RBC (d) [#/Vol] 4.63 10*6/uL [facility] (Bld[facility] [#/Vol] 11.3 10*3/uL High 3.99 - 11.19 K/uL [facility] CHEM 7 (LYTES,BUN,CREA,GLUC) on 08-07-2024 Anion gap [Moles/Vol] 13 mmol/L 7 - 17 mmol/L [facility] Chloride [Moles/Vol] 105 mmol/L 98 - 10 8 mmol/L [facility] CO2 [Moles/Vol] 28 mmol/L 21 - 31 mmol/L [facility] Creatinine [Mass/Vol] 1.19 mg/dL 0.50 - 1.20 mg/dL [facility] eGFR, CKD-EPI, Female 47 Low - PINF [facility] Glucose [Mass/Vol] 90 mg/dL 70 - 179 mg/dL [facility] Interpretation and review of laboratory results Abnormal [facility] Osmolality Calc [Osmolality] 304 [facility] Potassium [Moles/Vol] 4.2 mmol/L 3.5 - 5.0 mmol/L [facility] Sodium [Moles/Vol] 142 mmol/L 135 - 145 mmol/L [facility] Urea nitrogen [Mass/Vol] 34 mg/dL High 7 - 25 mg/dL [facility] Urea nitrogen/Creatinine [Mass ratio] 29 mg/mg [facility] GLUCOSE POCon 08-07-2024 Glucose [Mass/Vol] 185 mg/dL High 70 - 179 mg/dL [facility] Interpretation and review of laboratory results Abnormal [facility] POC Sample Type [facility] Glucose [Mass/Vol] 106 mg/dL 70 - 179 mg/dL [facility] POC Sample Type [facility] Glucose [Mass/Vol] 104 mg/dL 70 - 179 mg/dL [facility] POC Sample Type [facility] MAGNESIUMon 08-07-2024 Interpretation and review of laboratory results Normal [facility] Magnesium [Mass/Vol] 1.8 mg/dL 1.6 - 2 .6 mg/dL [facility] No Panel Informationon 08-07 [facility] CBC,PLATELETSon 08-06-2024 Hematocrit (Bld) [Volume fraction] 43.1 % Normal 34.9-44.3 [facility] Comment on above: Performed By: #### X M #### [facility] (DEFAULT) [address] [place] [address] Hemoglobin (Bld) [Mass/Vol] 13.7 g/dL Normal 11.4-15.2 [facility] Comment on above: Performed By: #### X M #### [facility] (DEFAULT) [address] [place] [address] MCV (RBC) [Entitic vol] 93.1 fL Normal 79.6-97.7 O [facility] Comment on above: Performed By: #### X M #### [facility] (DEFAULT) [address] [place] [address]677 Mean Cell Hgb 29.6 pg Normal 25.9-33.9 [facility] Comment on above: Performed By: #### X M #### [facility] (DEFAULT) [address] [place] [address] Mean Cell Hgb Conc 31.8 g/dL Normal 31.4-35.9 [facility] Comment on above: Performed By: #### X M #### [facility] (DEFAULT) [address] [place] [address] Platelet mean volume (Bld) [Entitic vol] 11.1 fL Normal 8.5-12.2 [facility] Comment on above: Performed By: #### X M #### [facility] (DEFAULT) [address] [place] [address] Platelets (Bld) [#/Vol] 214 10*3/uL Normal 150-393 [facility] Comment on above: Performed By: #### X M #### [facility] (DEFAULT) [address] [place] [address] RBC (Bld) [#/Vol] 4.63 10*6/uL Normal 3.91-5.04 [facility] Comment on above: Performed By: #### X M #### [facility] (DEFAULT) [address] [place] [address]772 RBC Distribution 13.9 % Normal 10.8-14.9 [facility] Comment on above: Performed By: #### X M #### [facility] (DEFAULT) [address] [place] [address] WBC (Bld) [#/Vol] 11.30 10*3/uL High 3.99-11.19 [facility] Comment on above: Performed By: #### X M #### [facility] (DEFAULT) [address] [place] [address] Erythrocyte distribution width (RBC) [Ratio] 13.9 % 10.8 - 14.9 % [facility] Hematocrit (Bld) [Volume fraction] 44 % 34.9 - 44.3 % [facility] Hemoglobin (Bld) [Mass/Vol] 13.9 g/dL 11.4 - 15.2 g/dL [facility] Interpretation and review of laboratory results Abnormal [facility] MCH (RBC) [Entitic mass] 29.1 pg 25.9 - 33.9 pg [facility] MCHC (RBC) [Mass/Vol] 31.6 g/dL 31.4 - 35.9 g/dL [facility] MCV (RBC) [Entitic vol] 92.2 fL 79.6 - 97.7 fL [facility] Platelet mean volume (Bld) [Entitic vol] 10.7 fL 8.5 - 12.2 fL [facility] Platelets (Bld) [#/Vol] 216 10*3/uL 150 - 393 K/uL [facility] RBC (Bld) [#/Vol] 4.77 10*6/uL [facility] WBC (Bld) [#/Vol] 12.14 10*3/uL High 3.99 - 11.19 K/uL [facility] CHEM 7 (LYTES,BUN,CREA,GLUC) on 08-06-2024 Anion gap [Moles/Vol] 13 mmol/L Normal 7-17 [facility] Comment on above: Performed By: #### Jaiden NGUYEN CHM7 ####[facility] (DEFAULT)[address] [place] [address] Chloride [Moles/Vol] 105 mmol/L Normal 98-108 [facility] Comment on above: Performed By: #### Jaiden NGUYEN CHM7 ####[facility] (DEFAULT)[address] [place] [address] CO2 [Moles/Vol] 28 mmol/L Normal 21-31 [facility] Comment on above: Performed By: #### Jaiden NGUYEN CHM7 ####[facility] (DEFAULT)[address] [place] [address] Creatinine [Mass/Vol] 1.19 mg/dL Normal 0.50-1.20 [facility] Comment on above: Performed By: #### Jaiden NGUYEN CHM7 ####[facility] (DEFAULT)[address] [place] [address] GFR/1.73 sq M.predicted among non-blacks MDRD (S/P/Bld) [Vol rate/Area] 47 mL/min/{1.73_m2} Low >=60 [facility] Comment on above: Result Comment: Repo rted eGFR is based on the CKD-EPI 2020 equation using creatinine, age, and sex. Performed By: #### HEYDI PALACIOS7 ####[facility] (DEFAULT)[address] [place] [address] Glucose [Mass/Vol] 90 mg/dL Normal Nonfastin -179 mg/dL; Fastin-99 [facility] Comment on above: Performed By: #### HEYDI PALACIOS7 ####[facility] (DEFAULT)[address] [place] [address] Osmolality [Osmolality] 304 mosm/kg Normal 278-305 [facility] Comment on above: Performed By: #### HEYDI PALACIOS7 ####[facility] (DEFAULT)[address] [place] [address] Potassium [Moles/Vol] 4.2 mmol/L Normal 3.5-5.0 [facility] Comment on above: Performed By: #### CAMERON PALACIOS ####[facility] (DEFAULT)[address] [place] [address] Sodium [Moles/Vol] 142 mmol/L Normal 135-145 [facility] Comment on above: Performed By: #### HEYDI PALACIOS7 ####[facility] (DEFAULT)[address] [place] [address] Urea nitrogen [Mass/Vol] 34 mg/dL High 7-25 [facility] Comment on above: Performed By: #### HEYDI PALACIOS7 ####[facility] (DEFAULT)[address] [place] [address] Urea nitrogen/Creatinine [Mass ratio] 29 mg/mg Normal [facility] Comment on above: Performed By: #### HEYDI PALACIOS7 ####[facility] (DEFAULT)[address] [place] [address] Anion gap [Moles/Vol] 14 mmol/L 7 - 17 mmol/L [facility] Chloride [Moles/Vol] 107 mmol/L 98 - 10 8 mmol/L [facility] CO2 [Moles/Vol] 27 mmol/L 21 - 31 mmol/L [facility] Creatinine [Mass/Vol] 1.19 mg/dL 0.50 - 1.20 mg/dL [facility] eGFR, CKD-EPI, Female 47 Low - PINF [facility] Glucose [Mass/Vol] 88 mg/dL 70 - 179 mg/dL [facility] Interpretation and review of laboratory results Abnormal [facility] Osmolality Calc [Osmolality] 307 High [facility] Potassium [Moles/Vol] 3.9 mmol/L 3.5 - 5.0 mmol/L [facility] Sodium [Moles/Vol] 144 mmol/L 135 - 145 mmol/L [facility] Urea nitrogen [Mass/Vol] 34 mg/dL High 7 - 25 mg/dL [facility] Urea nitrogen/Creatinine [Mass ratio] 29 mg/mg [facility] GLUCOSE POCon 08-06-2024 Glucose [Mass/Vol] 166 mg/dL 70 - 179 mg/dL [facility] Glucose [Mass/Vol] 106 mg/dL 70 - 179 mg/dL [facility] Glucose [Mass/Vol] 100 mg/dL 70 - 179 mg/dL [facility] POC Sample Type [facility] Glucose [Mass/Vol] 219 mg/dL High 70 - 179 mg/dL [facility] Interpretation and review of laboratory results Abnormal [facility] Glucose [Mass/Vol] 249 mg/dL High 70 - 179 mg/dL [facility] Glucose [Mass/Vol] 178 mg/dL 70 - 179 mg/dL [facility] Glucose [Mass/Vol] 194 mg/dL High 70 - 179 mg/dL [facility] Glucose [Mass/Vol] 93 mg/dL 70 - 179 mg/dL [facility] POC [facility] IONIZED CALCIUM, WHOLE BLOOD Ordered By: Zuleika Blunt on 08-06-2024 Calcium.ionized (Bld) [Moles/Vol] 4.72 mg/dL 4.60 - 5.30 mg/dL [facility] Interpretation and review of laboratory results Normal [facility] MAGNESIUMon 08-06-2024 Magnesium [Mass/Vol] 1.8 mg/dL Normal 1.6-2.6 [facility] Comment on above: Performed By: #### M [facility] ####[facility] (DEFAULT)[address] [place] [address] Magnesium [Mass/Vol] 2.4 mg/dL 1.6 - 2 .6 mg/dL [facility] No Panel Informationon 08-06 POC Sample Type [facility] Interpretation and review of laboratory results Abnormal [facility] POC Sample Type [facility] Interpretation and review of laboratory results Normal [facility] PHOSPHATE, INORGANICon 08-06 Phosphate [Mass/Vol] 3.2 mg/dL 2.2 - 4 .6 mg/dL [facility] RF videography Hypopharynx a nd Esophagus Views W liquid and paste contrast PO during swallowingon 08-06-2024 RADIOLOGY RADIOLOGY [facility] Radiology Study observation (narrative) [facility] RF videography Hypopharynx a nd Esophagus Views W liquid and paste contrast PO during swallowingOrdered By: Gerry Resendez on 08-06-2024 [facility] Work Phone: SPEECH MODIFIED BARIUM SWALL OWon 08-06-2024 [facility] XR FLUORO MODIFIED BARIUM SW ALLOW WITH [...] for specific therapeutic recommendations, please see the embroiderer report of the speech pathologist. Examination performed by ARCADIO Nicole, under the direct supervision of Gerry Resendez M.D., who was immediately available on site during the examination. I personally viewed and interpreted these images and I have reviewed and approved this report. Normal [facility] CBC,PLATELETSon 08-05-2024 Hematocrit (Bld) [Volume fraction] 44.0 % Normal 34.9-44.3 [facility] Comment on above: Performed By: #### B LDCULT #### [facility] (DEFAULT) [address] [address] Hemoglobin (Bld) [Mass/Vol] 13.9 g/dL Normal 11.4-15.2 [facility] Comment on above: Performed By: #### B LDCULT #### [facility] (DEFAULT) [address] [address] MCV (RBC) [Entitic vol] 92.2 fL Normal 79.6-97.7 O [facility] Comment on above: Performed By: #### B LDCULT #### [facility] (DEFAULT) [address] [address] Mean Cell Hgb 29.1 pg Normal 25.9-33.9 [facility] Comment on above: Performed By: #### B LDCULT #### [facility] (DEFAULT) [address] [place] [address] Mean Cell Hgb Conc 31.6 g/dL Normal 31.4-35.9 [facility] Comment on above: Performed By: #### B LDCULT #### [facility] (DEFAULT) [address] [place] [address] Platelet mean volume (Bld) [Entitic vol] 10.7 fL Normal 8.5-12.2 [facility] Comment on above: Performed By: #### B LDCULT #### [facility] (DEFAULT) [address] [place] [address] Platelets (Bld) [#/Vol] 216 10*3/uL Normal 150-393 [facility] Comment on above: Performed By: #### B LDCULT #### [facility] (DEFAULT) [address] [place] [address] RBC (Bld) [#/Vol] 4.77 10*6/uL Normal 3.91-5.04 [facility] Comment on above: Performed By: #### B LDCULT #### [facility] (DEFAULT) [address] [place] [address] RBC Distribution 13.9 % Normal 10.8-14.9 [facility] Comment on above: Performed By: #### B LDCULT #### [facility] (DEFAULT) [address] [place] [address] WBC (Bld) [#/Vol] 12.14 10*3/uL High 3.99-11.19 [facility] Comment on above: Performed By: #### B LDCULT #### [facility] (DEFAULT) [address] [place] [address] Erythrocyte distribution width (RBC) [Ratio] 13.9 % 10.8 - 14.9 % [facility] Hematocrit (Bld) [Volume fraction] 39.6 % 34.9 - 44.3 % [facility] Hemoglobin (Bld) [Mass/Vol] 12.6 g/dL 11.4 - 15.2 g/dL [facility] Interpretation and review of laboratory results Normal [facility] MCH (RBC) [Entitic mass] 29.3 pg 25.9 - 33.9 pg [facility] MCHC (RBC) [Mass/Vol] 31.8 g/dL 31.4 - 35.9 g/dL [facility] MCV (RBC) [Entitic vol] 92.1 fL 79.6 - 97.7 fL [facility] Platelet mean volume (Bld) [Entitic vol] 10.7 fL 8.5 - 12.2 fL [facility] Platelets (Bld) [#/Vol] 198 10*3/uL 150 - 393 K/uL [facility] RBC (Bld) [#/Vol] 4.3 10*6/uL [facility] WBC (Bld) [#/Vol] 10.61 10*3/uL 3.99 - 11.19 K/uL [facility] Hematocrit (Bld) [Volume fraction] 39.6 % Normal 34.9-44.3 [facility] Comment on above: Performed By: #### [facility] ####[facility] (DEFAULT)[address] [place] [address] Hemoglobin (Bld) [Mass/Vol] 12.6 g/dL Normal 11.4-15.2 [facility] Comment on above: Performed By: #### [facility] ####[facility] (DEFAULT)[address] [place] [address] MCV (RBC) [Entitic vol] 92.1 fL Normal 79.6-97.7 O [facility] Comment on above: Performed By: #### H [facility] ####[facility] (DEFAULT)[address] [facility] [place] [address] Mean Cell Hgb 29.3 pg Normal 25.9-33.9 [facility] Comment on above: Performed By: #### H EMOGC ####[facility] (DEFAULT)[address] [place] [address] Mean Cell Hgb Conc 31.8 g/dL Normal 31.4-35.9 [facility] Comment on above: Performed By: #### H EMOGC ####[facility] (DEFAULT)[address] [facility] [place] [address] Platelet mean volume (Bld) [Entitic vol] 10.7 fL Normal 8.5-12.2 [facility] Comment on above: Performed By: #### H EMOGC ####[facility] (DEFAULT)[address] [facility] [place] [address] Platelets (Bld) [#/Vol] 198 10*3/uL Normal 150-393 [facility] [facility] Comment on above: Performed By: #### H EMOGC ####[facility] (DEFAULT)[address] [facility] [place] [address] RBC (Bld) [#/Vol] 4.30 10*6/uL Normal 3.91-5.04 [facility] Comment on above: Performed By: #### H EMOGC ####[facility] (DEFAULT)[address] [facility] [place] [address] RBC Distribution 13.9 % Normal 10.8-14.9 [facility] Comment on above: Performed By: #### H EMOGC ####[facility] (DEFAULT)[address] [facility] [place] [address] WBC (Bld) [#/Vol] 10.61 10*3/uL Normal 3.99-11.19 [facility] Comment on above: Performed By: #### H EMOGC ####[facility] (DEFAULT)[address] [place] [id number] CHEM 7 (LYTES,BUN,CREA,GLUC) on 08-05-2024 Anion gap [Moles/Vol] 14 mmol/L Normal 7-17 [facility] Comment on above: Performed By: #### S URGP #### [facility] (DEFAULT) [address] [place] [address] 59012 Chloride [Moles/Vol] 107 mmol/L Normal 98-108 [facility] Comment on above: Performed By: #### S URGP #### [facility] (DEFAULT) [address] [place] [address] 41894 CO2 [Moles/Vol] 27 mmol/L Normal 21-31 [facility] Comment on above: Performed By: #### S URGP #### [facility] (DEFAULT) [address] [place] [address] 11393 Creatinine [Mass/Vol] 1.19 mg/dL Normal 0.50-1.20 [facility] Comment on above: Performed By: #### S URGP #### [facility] (DEFAULT) [address] [place] [address] 49681 GFR/1.73 sq M.predicted among non-blacks MDRD (S/P/Bld) [Vol rate/Area] 47 mL/min/{1.73_m2} Low >=60 [facility] Comment on above: Result Comment: Repo rted eGFR is based on the CKD-EPI 2020 equation using creatinine, age, and sex. Performed By: #### S URGP #### [facility] (DEFAULT) [address] [place] [address] 63697 Glucose [Mass/Vol] 88 mg/dL Normal Nonfastin -179 mg/dL; Fastin-99 [facility] Comment on above: Performed By: #### S URGP #### [facility] (DEFAULT) [address] [place] [address] 10866 Osmolality [Osmolality] 307 mosm/kg High 278-305 [facility] Comment on above: Performed By: #### S URGP #### [facility] (DEFAULT) [address] [place] [address] Potassium [Moles/Vol] 3.9 mmol/L Normal 3.5-5.0 [facility] Comment on above: Performed By: #### S URGP #### [facility] (DEFAULT) [address] [place] [address] Sodium [Moles/Vol] 144 mmol/L Normal 135-145 [facility] Comment on above: Performed By: #### S URGP #### [facility] (DEFAULT) [address] [place] [address] 40387 Urea nitrogen [Mass/Vol] 34 mg/dL High 7-25 [facility] Comment on above: Performed By: #### S URGP #### [facility] (DEFAULT) [address] [place] [address] 11932 Urea nitrogen/Creatinine [Mass ratio] 29 mg/mg Normal [facility] Comment on above: Performed By: #### S URGP #### [facility] (DEFAULT) [address] [place] [address] 66257 Anion gap [Moles/Vol] 14 mmol/L 7 - 17 mmol/L [facility] Chloride [Moles/Vol] 108 mmol/L 98 - 10 8 mmol/L [facility] CO2 [Moles/Vol] 25 mmol/L 21 - 31 mmol/L [facility] Creatinine [Mass/Vol] 1.45 mg/dL High 0.50 - 1.20 mg/dL [facility] eGFR, CKD-EPI, Female 37 Low - PINF [facility] Glucose [Mass/Vol] 242 mg/dL High 70 - 179 mg/dL [facility] Interpretation and review of laboratory results Abnormal [facility] Osmolality Calc [Osmolality] 315 High [facility] Potassium [Moles/Vol] 3.8 mmol/L 3.5 - 5.0 mmol/L [facility] Sodium [Moles/Vol] 143 mmol/L 135 - 145 mmol/L [facility] Urea nitrogen [Mass/Vol] 35 mg/dL High 7 - 25 mg/dL [facility] Urea nitrogen/Creatinine [Mass ratio] 24 mg/mg [facility] Anion gap [Moles/Vol] 14 mmol/L Normal 7-17 [facility] Comment on above: Performed By: #### X M #### [facility] (DEFAULT) [address] [address] Chloride [Moles/Vol] 108 mmol/L Normal 98-108 [facility] Comment on above: Performed By: #### X M #### [facility] (DEFAULT) [address] [address] CO2 [Moles/Vol] 25 mmol/L Normal 21-31 [facility] Comment on above: Performed By: #### X M #### [facility] (DEFAULT) [address] [address] Creatinine [Mass/Vol] 1.45 mg/dL High 0.50-1.20 [facility] Comment on above: Performed By: #### X M #### [facility] (DEFAULT) [address] [address] GFR/1.73 sq M.predicted among non-blacks MDRD (S/P/Bld) [Vol rate/Area] 37 mL/min/{1.73_m2} Low >=60 [facility] Comment on above: Result Comment: Repo rted eGFR is based on the CKD-EPI 2020 equation using creatinine, age, and sex. Performed By: #### X M #### [facility] (DEFAULT) [address] [address] Glucose [Mass/Vol] 242 mg/dL High Nonfastin -179 mg/dL; Fastin-99 [facility] Comment on above: Performed By: #### X M #### [facility] (DEFAULT) [address] [place] [address] 15088 Osmolality [Osmolality] 315 mosm/kg High 278-305 [facility] Comment on above: Performed By: #### X M #### [facility] (DEFAULT) [address] [place] [address] 51219 Potassium [Moles/Vol] 3.8 mmol/L Normal 3.5-5.0 [facility] Comment on above: Performed By: #### X M #### [facility] (DEFAULT) [address] [place] [address] 17082 Sodium [Moles/Vol] 143 mmol/L Normal 135-145 [facility] Comment on above: Performed By: #### X M #### [facility] (DEFAULT) [address] [place] [address] 38326 Urea nitrogen [Mass/Vol] 35 mg/dL High 7-25 [facility] Comment on above: Performed By: #### X M #### [facility] (DEFAULT) [address] [place] [address] 60215 Urea nitrogen/Creatinine [Mass ratio] 24 mg/mg Normal [facility] Comment on above: Performed By: #### X M #### [facility] (DEFAULT) [address] [place] [address] 87948 Cardiac echo study Procedure Ordered By: Ezequiel Figueroa on 08-05-2024 Ao ASC index 1.56 cm/m2 [facility] Work Phone: [phone] Ao peak fidel 1.23 m/s [facility] Work Phone: [phone] Ao SOV index 1.56 cm/m2 [facility] Work Phone: [phone] Ao STJ index 1.36 cm/m2 [facility] Work Phone: [phone] Ao VTI 24.81 cm [facility] Work Phone: [phone] Ascending aorta 2.97 cm [facility] Work Phone: [phone] AV LVOT peak gradient 4 mmHg [facility] Work Phone: [phone] AV mean gradient 4 mmHg [facility] Work Phone: [phone] AV peak gradient 6 mmHG [facility] Work Phone: [phone] AV valve area 2.72 cm2 [facility] Work Phone: [phone] AV Velocity Ratio 0.[address] [facility] Work Phone: [phone] MARKUS (continuity Vmax) 2.55 cm2 [facility] Work Phone: [phone] MARKUS (continuity VTI) 2.72 cm2 [facility] Work Phone: [phone] MARKUS index (continuity Vmax) 1.34 m/s [facility] Work Phone: [phone] MARKUS index (continuity VTI) 1.43 cm2/m2 [facility] Work Phone: [phone] Avg e' pk fidel 0.09 m/s [facility] Work Phone: [phone] Body surface area Derived from formula 1.9 m2 [facility] Work Phone: [phone] BP EF 55 % [facility] Work Phone: [phone] DI (Vmax) 0.8 [facility] Work Phone: [phone] DI (VTI) 0.86 m/2 [facility] Work Phone: [phone] e' lateral pk fidel 0.0845 m/s [facility] Work Phone: [phone] e' lateral pk fidel 0.08 m/s [facility] Work Phone: [phone] e' septal pk fidel 0.0953 m/s [facility] Work Phone: [phone] e' septal pk fidel 0.1 m/s [facility] Work Phone: [phone] EF SP 2CH 56 [facility] Work Phone: [phone] EF SP 4CH 51 [facility] Work Phone: [phone] EST RAP 3 mmHg [facility] Work Phone: [phone] EST RVSP 29 mmHg [facility] Work Phone: [phone] FS 31 % [facility] Work Phone: [phone] IVC ostium 1.64 cm [facility] Work Phone: [phone] IVS 1.14 cm [facility] Work Phone: [phone] LA area 4CH 29.07 cm2 [facility] Work Phone: [phone] LA ESV BP (MOD) 86 [facility]: [phone] LA ESV BP (MOD) index 45 mL/m2 [facility] Work Phone: [phone] LA ESV SP 2CH (MOD) 81 mL [facility] Work Phone: [phone] LA ESV SP 4CH (MOD) 93 mL [facility] Work Phone: [phone] LV EDV BP 88 mL [facility] Work Phone: [phone] LV EDV SP 2CH 85 mL [facility] Work Phone: [phone] LV EDV SP 4CH 86 mL [facility] Work Phone: [phone] LV ESV BP 40 mL [facility] Work Phone: [phone] LV ESV SP 2CH 37 mL [facility] Work Phone: [phone] LV ESV SP 4CH 42 mL [facility] Work Phone: [phone] LV mass 146.48 g [facility] Work Phone: [phone] LV Mass Index 77.1 g/m2 [facility] Work Phone: [phone] LV RWT 0.56 [facility] Work Phone: [phone] LV stroke volume BP (ml) 48 mL [facility] Work Phone: [phone] LV stroke volume index BP 25.26 mL/m2 [facility] Work Phone: [phone] LVIDD 3.93 cm [facility] Work Phone: [phone] LVIDS 2.7 cm [facility] Work Phone: [phone] LVOT area 3.17 cm2 [facility] Work Phone: [phone] LVOT diameter 2.01 cm [facility] Work Phone: [phone] LVOT peak fidel 0.99 m/s [facility] Work Phone: [phone] LVOT peak VTI 21.3 cm [facility] Work Phone: [phone] LVOT stroke volume 68 cm3 [facility] Work Phone: [phone] LVOT stroke volume index 35.55 ml/m2 [facility] Work Phone: [phone] MV mean gradient 3 mmHg [facility] Work Phone: [phone] MV peak gradient 6 mmHg [facility] Work Phone: [phone] MV valve area by continuity eq 2.61 cm2 [facility] Work Phone: [phone] MV VTI 25.92 cm [facility] Work Phone: [phone] MVA (continuity VTI) 2.6 cm [facility] Work Phone: [phone] [facility] AV VTI RATIO PRE STRESS 0.86 [facility] Work Phone: OSU ECHO LV BIPLANE SYSTOLIC VOLUME INDEX 21.05 mL/m2 [facility] Work Phone: OSU ECHO LV BP DIASTOLIC VOLUME INDEX 46.32 mL/m2 [facility] Work [facility]: PV [facility] gradient [facility]: PV peak gradient 6 [facility] Work Phone: PV PK FIDEL 1.23 m/s [facility] Work Phone: PW 1.11 cm [facility] Work Phone: RA area 4CH (MOD) 22.74 cm2 [facility] Work Phone: RA vol index 4CH (MOD) 36.32 mL/m2 [facility] Work Phone: Right atrium volume 4 chamber method of disks 69 [facility] Work Phone: RV Area diastolic 17.[address] [facility] Work Phone: RV Area systolic 11.9 cm2 [facility] Work Phone: RV basal diam 4.56 cm [facility] Work Phone: RV Fractional area change 32 % [facility] Work Phone: RV long diam 6.91 cm [facility] Work Phone: RV mid diam 2.91 cm [facility] Work Phone: RV S' 12.81 cm/s [facility] Work Phone: RVOT peak gradient 5 mmHg [facility] Work Phone: RVOT peak fidel 1.07 m/s [facility] Work Phone: [phone] RVOT peak VTI 20.1 cm [facility] Work Phone: [phone] Sinus 2.97 cm [facility] Work Phone: [phone] STJ 2.58 cm [facility] Work Phone: [phone] Stroke Volume 68 cm/mL [facility] Work Phone: [phone] Stroke volume index 36 [facility] Work Phone: [phone] TAPSE 2.08 cm [facility] Work Phone: [phone] TR pk grad 26 mmHg [facility] Work Phone: [phone] TR pk fidel 2.53 m/s [facility] Work Phone: [phone] [facility] Work Phone: Cardiac echo study Procedure on 08-05-2024 [facility] Radiology Study observation (narrative) [facility] ECHOCARDIOGRAMon 08-05-2024 Echocardiography ? No prior [...] original result were not included. [facility] Facility [facility] Patient Information Patient Name Lindsay Acuna [...] Role Read Date Ezequiel Figueroa DO Echo [place] 08/05/2024 Left Heart Measurements LV - Systole [...] di (more content not included)... Normal [facility] GLUCOSE POCon 08-05-2024 Glucose [Mass/Vol] 228 mg/dL High 70 - 179 mg/dL [facility] Interpretation and review of laboratory results Abnormal [facility] POC Sample Type CAPBL [facility] IONIZED CALCIUM, WHOLE BLOOD on 08-05-2024 ICA 4.72 mg/dL Normal 4.60-5.30 [facility] Comment on above: Performed By: #### S URGP #### [facility] (DEFAULT) [address] [place] [address] ICA 4.69 mg/dL Normal 4.60-5.30 [facility] Comment on above: Performed By: #### S URGP #### [facility] (DEFAULT) [address] [place] [address] 84672 IONIZED CALCIUM, WHOLE BLOOD Ordered By: Jairo Layton on 08-05-2024 Calcium.ionized (Bld) [Moles/Vol] 4.69 mg/dL 4.60 - 5.30 mg/dL [facility] Interpretation and review of laboratory results Normal [facility] MAGNESIUMon 08-05-2024 Magnesium [Mass/Vol] 2.4 mg/dL Normal 1.6-2.6 [facility] Comment on above: Performed By: #### S URGP #### [facility] (DEFAULT) [address] [place] [address] 85103 Magnesium [Mass/Vol] 1.8 mg/dL 1.6 - 2 .6 mg/dL [facility] Magnesium [Mass/Vol] 1.8 mg/dL Normal 1.6-2.6 [facility] Comment on above: Performed By: #### X M #### [facility] (DEFAULT) [address] [place] [address] 80105 No Panel Informationon 08-05 Interpretation and review of laboratory results Normal [facility] PHOSPHATE, INORGANICon 08-05 Phosphorous 3.2 mg/dL Normal 2.2-4.6 [facility] Comment on above: Performed By: #### S URGP #### [facility] (DEFAULT) [address] [place] [address] 16859 Phosphate [Mass/Vol] 2.7 mg/dL 2.2 - 4 .6 mg/dL [facility] Phosphorous 2.7 mg/dL Normal 2.2-4.6 [facility] Comment on above: Performed By: #### X M #### [facility] (DEFAULT) [address] [place] [address] 16664 VON [place]ILLE[place] FACTOR AGOrde red By: Madhavi Mcelroy on 08-05-2024 Interpretation and review of laboratory results Abnormal [facility] vWf Ag actual/normal IA (PPP) [Relative mass conc] 230 % High 50 - 180 % [facility] CBC,PLATELETSon 08-04-2024 Erythrocyte distribution width (RBC) [Ratio] 13.7 % 10.8 - 14.9 % [facility] Hematocrit (Bld) [Volume fraction] 40.8 % 34.9 - 44.3 % [facility] Hemoglobin (Bld) [Mass/Vol] 12.7 g/dL 11.4 - 15.2 g/dL [facility] Interpretation and review of laboratory results Abnormal [facility] MCH (RBC) [Entitic mass] 28.7 pg 25.9 - 33.9 pg [facility] MCHC (RBC) [Mass/Vol] 31.1 g/dL Low 31.4 - 35.9 g/dL [facility] MCV (RBC) [Entitic vol] 92.1 fL 79.6 - 97.7 fL [facility] Platelet mean volume (Bld) [Entitic vol] 10.8 fL 8.5 - 12.2 fL [facility] Platelets (Bld) [#/Vol] 228 10*3/uL 150 - 393 K/uL [facility] RBC (Bld) [#/Vol] 4.43 10*6/uL [facility] WBC (Bld) [#/Vol] 11.41 10*3/uL High 3.99 - 11.19 K/uL [facility] Hematocrit (Bld) [Volume fraction] 40.8 % Normal 34.9-44.3 [facility] Comment on above: Performed By: #### [facility] #### [facility] (DEFAULT) [address] [place] [address] 79326 Hemoglobin (Bld) [Mass/Vol] 12.7 g/dL Normal 11.4-15.2 [facility] Comment on above: Performed By: #### H [facility] #### [facility] (DEFAULT) [address] [place] [address] 33403 MCV (RBC) [Entitic vol] 92.1 fL Normal 79.6-97.7 [facility] Comment on above: Performed By: #### H EMOGC #### [facility] (DEFAULT) [address] [place] [address] 99162 Mean Cell Hgb 28.7 pg Normal 25.9-33.9 [facility] Comment on above: Performed By: #### H EMOGC #### [facility] (DEFAULT) [address] [place] [address] 18433 Mean Cell Hgb Conc 31.1 g/dL Low 31.4-35.9 [facility] Comment on above: Performed By: #### H EMOGC #### [facility] (DEFAULT) [address] [place] [address] 16269 Platelet mean volume (Bld) [Entitic vol] 10.8 fL Normal 8.5-12.2 [facility] Comment on above: Performed By: #### H EMOGC #### [facility] (DEFAULT) [address] [place] [address] 43121 Platelets (Bld) [#/Vol] 228 10*3/uL Normal 150-393 [facility] Comment on above: Performed By: #### H EMOGC #### [facility] (DEFAULT) [address] [place] [address] 77511 RBC (Bld) [#/Vol] 4.43 10*6/uL Normal 3.91-5.04 [facility] Comment on above: Performed By: #### H EMOGC #### [facility] (DEFAULT) [address] [place] [address] 95910 RBC Distribution 13.7 % Normal 10.8-14.9 [facility] Comment on above: Performed By: #### H EMOGC #### [facility] (DEFAULT) [address] [place] [address] 65123 WBC (Bld) [#/Vol] 11.41 10*3/uL High 3.99-11.19 [facility] Comment on above: Performed By: #### H EMO #### [facility] (DEFAULT) [address] [place] [id number] CHEM 7 (LYTES,BUN,CREA,GLUC) Ordered By: Lizette Canseco on 08-04-2024 Anion gap [Moles/Vol] 16 mmol/L 7 - 17 mmol/L [facility] Chloride [Moles/Vol] 109 mmol/L High 98 - 10 8 mmol/L [facility] CO2 [Moles/Vol] 24 mmol/L 21 - 31 mmol/L [facility] Creatinine [Mass/Vol] 1.47 mg/dL High 0.50 - 1.20 mg/dL [facility] eGFR, CKD-EPI, Female 36 Low - PINF [facility] Glucose [Mass/Vol] 181 mg/dL High 70 - 179 mg/dL [facility] Interpretation and review of laboratory results Abnormal [facility] Osmolality Calc [Osmolality] 312 High [facility] Potassium [Moles/Vol] 4 mmol/L 3.5 - 5.0 mmol/L [facility] Sodium [Moles/Vol] 145 mmol/L 135 - 145 mmol/L [facility] Urea nitrogen [Mass/Vol] 26 mg/dL High 7 - 25 mg/dL [facility] Urea nitrogen/Creatinine [Mass ratio] 18 mg/mg [facility] CHEM 7 (LYTES,BUN,CREA,GLUC) on 08-04-2024 Anion gap [Moles/Vol] 16 mmol/L Normal 7-17 [facility] Comment on above: Performed By: #### S URGP #### [facility] (DEFAULT) [address] [place] [address] Chloride [Moles/Vol] 109 mmol/L High 98-108 [facility] Comment on above: Performed By: #### S URGP #### [facility] (DEFAULT) [address] [place] [address] 67352 CO2 [Moles/Vol] 24 mmol/L Normal 21-31 [facility] Comment on above: Performed By: #### S URGP #### [facility] (DEFAULT) [address] [place] [address] 86093 Creatinine [Mass/Vol] 1.47 mg/dL High 0.50-1.20 [facility] Comment on above: Performed By: #### S URGP #### [facility] (DEFAULT) [address] [place] [address] 73256 GFR/1.73 sq M.predicted among non-blacks MDRD (S/P/Bld) [Vol rate/Area] 36 mL/min/{1.73_m2} Low >=60 [facility] Comment on above: Result Comment: Repo rted eGFR is based on the CKD-EPI 2020 equation using creatinine, age, and sex. Performed By: #### S URGP #### [facility] (DEFAULT) [address] [place] [address] 97631 Glucose [Mass/Vol] 181 mg/dL High Nonfastin -179 mg/dL; Fastin-99 [facility] Comment on above: Performed By: #### S URGP #### [facility] (DEFAULT) [address] [place] [address] 97306 Osmolality [Osmolality] 312 mosm/kg High 278-305 [facility] Comment on above: Performed By: #### S URGP #### [facility] (DEFAULT) [address] [place] [address] 82344 Potassium [Moles/Vol] 4.0 mmol/L Normal 3.5-5.0 [facility] Comment on above: Performed By: #### S URGP #### [facility] (DEFAULT) [address] [place] [address] 26547 Sodium [Moles/Vol] 145 mmol/L Normal 135-145 [facility] Comment on above: Performed By: #### S URGP #### [facility] (DEFAULT) [address] [place] [address] Urea nitrogen [Mass/Vol] 26 mg/dL High 7-25 [facility] Comment on above: Performed By: #### S URGP #### [facility] (DEFAULT) [address] [place] [address] Urea nitrogen/Creatinine [Mass ratio] 18 mg/mg Normal [facility] Comment on above: Performed By: #### S URGP #### [facility] (DEFAULT) [address] [place] [address] CT HEAD WITHOUT CONTRASTon 0 08-04-2024 CT [...] are clear. IMPRESSION: Stable exam. Normal [facility] CT Head WO contraston 2024 RADIOLOGY RADIOLOGY [facility] CT Head WO contrastOrdered B y: Chirag Mendenhall on 08-04-2024 [facility] Work Phone: GLUCOSE POCon 08-04-2024 Glucose [Mass/Vol] 227 mg/dL High 70 - 179 mg/dL [facility] Interpretation and review of laboratory results Abnormal [facility] POC Sample Type [facility] Glucose [Mass/Vol] 235 mg/dL High 70 - 179 mg/dL [facility] Interpretation and review of laboratory results Abnormal [facility] POC Sample [facility] Glucose [Mass/Vol] 215 mg/dL High 70 - 179 mg/dL [facility] Interpretation and review of laboratory results Abnormal [facility] POC Sample Type CAPBL [facility] Glucose [Mass/Vol] 178 mg/dL 70 - 179 mg/dL [facility] Glucose [Mass/Vol] 157 mg/dL 70 - 179 mg/dL [facility] Glucose [Mass/Vol] 271 mg/dL High 70 - 179 mg/dL [facility] Glucose [Mass/Vol] 267 mg/dL High 70 - 179 mg/dL [facility] Glucose [Mass/Vol] 246 mg/dL High 70 - 179 mg/dL [facility] IONIZED CALCIUM, WHOLE BLOOD Ordered By: Laura Rodriguez on 08-04-2024 Calcium.ionized (Bld) [Moles/Vol] 4.8 mg/dL 4.60 - 5.30 mg/dL [facility] Interpretation and review of laboratory results Normal [facility] IONIZED CALCIUM, WHOLE BLOOD on 08-04-2024 ICA 4.80 mg/dL Normal 4.60-5.30 [facility] Comment on above: Performed By: #### T YPEC #### [facility] (DEFAULT) [address] [place] [address] MAGNESIUMon 08-04-2024 Magnesium [Mass/Vol] 1.9 mg/dL 1.6 - 2 .6 mg/dL [facility] Magnesium [Mass/Vol] 1.9 mg/dL Normal 1.6-2.6 [facility] Comment on above: Performed By: #### X M #### [facility] (DEFAULT) [address] [place] [id number] No Panel Informationon 08-04 POC Sample Type CAPBL [facility] Interpretation and review of laboratory results Abnormal [facility] Interpretation and review of laboratory results Normal [facility] PHOSPHATE, INORGANICon 08-04 Phosphate [Mass/Vol] 2.8 mg/dL 2.2 - 4 .6 mg/dL [facility] Phosphorous 2.8 mg/dL Normal 2.2-4.6 [facility] Comment on above: Performed By: #### X M #### [facility] (DEFAULT) [address] [address] SODIUMon 08-04-2024 Interpretation and review of laboratory results Normal [facility] Sodium [Moles/Vol] 142 mmol/L 135 - 145 mmol/L [facility] Sodium [Moles/Vol] 142 mmol/L Normal 135-145 [facility] Comment on above: Order Comment: While on 3% Hypertonic Saline. Performed By: #### S URGP #### [facility] (DEFAULT) [address] [place] [address] Interpretation and review of laboratory results Normal [facility] Sodium [Moles/Vol] 141 mmol/L 135 - 145 mmol/L [facility] Sodium [Moles/Vol] 141 mmol/L Normal 135-145 [facility] Comment on above: Order Comment: [...] bottle. Performed By: #### B LDCULT #### [facility] (DEFAULT) [address] [place] [address] Interpretation and review of laboratory results Normal [facility] Sodium [Moles/Vol] 143 mmol/L 135 - 145 mmol/L [facility] Sodium [Moles/Vol] 143 mmol/L Normal 135-145 [facility] Comment on above: Order Comment: While on 3% Hypertonic Saline. Performed By: #### [facility] #### [facility] (DEFAULT) [address] [place] [address] ABORH TYPE RECONFIRMATIONon 08-03-2024 ABO/RH(D) TYPE Negative [facility] ABO/RH(D) TYPE Negative Normal [facility] Comment on above: Performed By: #### T YPEC #### [facility] (DEFAULT) [address] [place] [address] CBC,PLATELETSon 08-03-2024 Erythrocyte distribution width (RBC) [Ratio] 13.2 % 10.8 - 14.9 % [facility] Hematocrit (Bld) [Volume fraction] 42.8 % 34.9 - 44.3 % [facility] Hemoglobin (Bld) [Mass/Vol] 13.5 g/dL 11.4 - 15.2 g/dL [facility] Interpretation and review of laboratory results Normal [facility] MCH (RBC) [Entitic mass] 29.2 pg 25.9 - 33.9 pg [facility] MCHC (RBC) [Mass/Vol] 31.5 g/dL 31.4 - 35.9 g/dL [facility] MCV (RBC) [Entitic vol] 92.4 fL 79.6 - 97.7 fL [facility] Platelet mean volume (Bld) [Entitic vol] 11.2 fL 8.5 - 12.2 fL [facility] Platelets (Bld) [#/Vol] 227 10*3/uL 150 - 393 K/uL [facility] RBC (Bld) [#/Vol] 4.63 10*6/uL [facility] WBC (Bld) [#/Vol] 8.43 10*3/uL 3.99 - 11.19 K/uL [facility] Hematocrit (Bld) [Volume fraction] 42.8 % Normal 34.9-44.3 [facility] Comment on above: Performed By: #### X M #### [facility] (DEFAULT) [address] [place] [address] Hemoglobin (Bld) [Mass/Vol] 13.5 g/dL Normal 11.4-15.2 [facility] Comment on above: Performed By: #### X M #### [facility] (DEFAULT) [address] [place] [address]55 MCV (RBC) [Entitic vol] 92.4 fL Normal 79.6-97.7 O [facility] Comment on above: Performed By: #### X M #### [facility] (DEFAULT) [address] [place] [address] 20811 Mean Cell Hgb 29.2 pg Normal 25.9-33.9 [facility] Comment on above: Performed By: #### X M #### [facility] (DEFAULT) [address] [place] [address] 36962 Mean Cell Hgb Conc 31.5 g/dL Normal 31.4-35.9 [facility] Comment on above: Performed By: #### X M #### [facility] (DEFAULT) [address] [place] [address]70 Platelet mean volume (Bld) [Entitic vol] 11.2 fL Normal 8.5-12.2 [facility] Comment on above: Performed By: #### X M #### [facility] (DEFAULT) [address] [place] [address]77 Platelets (Bld) [#/Vol] 227 10*3/uL Normal 150-393 [facility] Comment on above: Performed By: #### X M #### [facility] (DEFAULT) [address] [place] [address]24 RBC (Bld) [#/Vol] 4.63 10*6/uL Normal 3.91-5.04 [facility] Comment on above: Performed By: #### X M #### [facility] (DEFAULT) [address] [place] [address]277 RBC Distribution 13.2 % Normal 10.8-14.9 [facility] Comment on above: Performed By: #### X M #### [facility] (DEFAULT) [address] [place] [address]23 WBC (Bld) [#/Vol] 8.43 10*3/uL Normal 3.99-11.19 [facility] Comment on above: Performed By: #### X M #### [facility] (DEFAULT) [address] [place] [address] 25599 CHEM 7 (LYTES,BUN,CREA,GLUC) on 08-03-2024 Anion gap [Moles/Vol] 16 mmol/L 7 - 17 mmol/L [facility] Chloride [Moles/Vol] 103 mmol/L 98 - 10 8 mmol/L [facility] CO2 [Moles/Vol] 23 mmol/L 21 - 31 mmol/L [facility] Creatinine [Mass/Vol] 1.35 mg/dL High 0.50 - 1.20 mg/dL [facility] eGFR, CKD-EPI, Female 40 Low - PINF [facility] Glucose [Mass/Vol] 151 mg/dL 70 - 179 mg/dL [facility] Interpretation and review of laboratory results Abnormal [facility] Osmolality Calc [Osmolality] 295 [facility] Potassium [Moles/Vol] 4.3 mmol/L 3.5 - 5.0 mmol/L [facility] Sodium [Moles/Vol] 138 mmol/L 135 - 145 mmol/L [facility] Urea nitrogen [Mass/Vol] 18 mg/dL 7 - 25 mg/dL [facility] Urea nitrogen/Creatinine [Mass ratio] 13 mg/mg [facility] Anion gap [Moles/Vol] 16 mmol/L Normal 7-17 [facility] Comment on above: Performed By: #### S URGP #### [facility] (DEFAULT) [address] [place] [address] Chloride [Moles/Vol] 103 mmol/L Normal 98-108 [facility] Comment on above: Performed By: #### S URGP #### [facility] (DEFAULT) [address] [place] [address] 10917 CO2 [Moles/Vol] 23 mmol/L Normal 21-31 [facility] Comment on above: Performed By: #### S URGP #### [facility] (DEFAULT) [address] [place] [address] Creatinine [Mass/Vol] 1.35 mg/dL High 0.50-1.20 [facility] Comment on above: Performed By: #### S URGP #### [facility] (DEFAULT) [address] [place] [address] 20873 GFR/1.73 sq M.predicted among non-blacks MDRD (S/P/Bld) [Vol rate/Area] 40 mL/min/{1.73_m2} Low >=60 [facility] Comment on above: Result Comment: Repo rted eGFR is based on the CKD-EPI 2020 equation using creatinine, age, and sex. Performed By: #### S URGP #### [facility] (DEFAULT) [address] [place] [address]2772 Glucose [Mass/Vol] 151 mg/dL Normal Nonfastin -179 mg/dL; Fastin-99 [facility] Comment on above: Performed By: #### S URGP #### [facility] (DEFAULT) [address] [place] [address]35 Osmolality [Osmolality] 295 mosm/kg Normal 278-305 [facility] Comment on above: Performed By: #### S URGP #### [facility] (DEFAULT) [address] [place] [address] Potassium [Moles/Vol] 4.3 mmol/L Normal 3.5-5.0 [facility] Comment on above: Result Comment: Spec imen slightly hemolyzed. Potassium results may be falsey elevated by more than 0.5 mmol/L. Consider recollection. Performed By: #### S URGP #### [facility] (DEFAULT) [address] [place] [address] 24556 Sodium [Moles/Vol] 138 mmol/L Normal 135-145 [facility] Comment on above: Performed By: #### S URGP #### [facility] (DEFAULT) [address] [place] [address] 08595 Urea nitrogen [Mass/Vol] 18 mg/dL Normal 7-25 [facility] Comment on above: Performed By: #### S URGP #### [facility] (DEFAULT) [address] [place] [address] 79143 Urea nitrogen/Creatinine [Mass ratio] 13 mg/mg Normal [facility] Comment on above: Performed By: #### S URGP #### [facility] (DEFAULT) [address] [place] [address] CHEST WITH CONTRAST VASCU LAR TRAUMAon [...] reviewed and approved this report. Normal [facility] CT Cervical spine WO contras ton 08-03-2024 RADIOLOGY RADIOLOGY [facility] CT Cervical spine WO contras tOrdered By: Alissa Chun on 08-03-2024 [facility] Work Phone: CT Chest W contrast Seth RADIOLOGY RADIOLOGY [facility] CT Chest W contrast IVOrdere d By: Kayla Newell on 08-03-2024 [facility] Work Phone: CT HEAD WITHOUT CONTRASTon [...] the MRI from earlier today Normal [facility] CT Head WO contraston 2024 Radiology Study observation (narrative) [facility] RADIOLOGY RADIOLOGY [facility] Radiology Study observation (narrative) [facility] CT ORBITS WITHOUT CONTRASTon 08-03-2024 CT [...] ganglia hyperdensity concerning for hemorrhage. Normal [facility] CT Orbit WO contraston 08-03 RADIOLOGY RADIOLOGY [facility] CT SPINE CERVICAL WITHOUT CO NTRASTon 08-03-2024 [...] evidence of acute fractures identified Normal [facility] EXTRA MICROon 08-03-2024 [facility] GLUCOSE POCon 08-03-2024 Glucose [Mass/Vol] 161 mg/dL 70 - 179 mg/dL [facility] POC Sample Type CAPBL [facility] IONIZED CALCIUM, WHOLE BLOOD Ordered By: Alejandra Ness on 08-03-2024 Calcium.ionized (Bld) [Moles/Vol] 4.24 mg/dL Low 4.60 - 5.30 mg/dL [facility] Interpretation and review of laboratory results Abnormal [facility] IONIZED CALCIUM, WHOLE BLOOD on 08-03-2024 ICA 4.24 mg/dL Low 4.60-5.30 [facility] Comment on above: Performed By: #### [facility] #### [facility] (DEFAULT) [address] [place] [address] MAGNESIUMon 08-03-2024 Magnesium [Mass/Vol] 2.1 mg/dL 1.6 - 2 .6 mg/dL [facility] Magnesium [Mass/Vol] 2.1 mg/dL Normal 1.6-2.6 [facility] Comment on above: Performed By: #### S URGP #### [facility] (DEFAULT) [address] [place] [address] MR Brain WO contraston 08-03 RADIOLOGY RADIOLOGY [facility] Radiology Study observation (narrative) [facility] MR Cervical spine WO contras ton 08-03-2024 RADIOLOGY RADIOLOGY [facility] Radiology Study observation (narrative) [facility] MR Cervical spine WO contras tOrdered By: Kuldeep Tavares on 08-03-2024 [facility] Work Phone: MRI BRAIN WITHOUT CONTRASTon [...] 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 Normal [facility] MRI SPINE CERVICAL WITHOUT C ONTRASTon [...] reviewed and approved this report. Normal [facility] NT-PRO B-TYPE NATRIURETIC PE PTIDEon 08-03-2024 Interpretation and review of laboratory results Abnormal [facility] Natriuretic peptide.B prohormone N-Terminal IA [Mass/Vol] 1115 pg/mL High NINF - 540 pg/mL [facility] No Panel Informationon 08-03 RADIOLOGY RADIOLOGY [facility] Interpretation and review of laboratory results Normal [facility] No Panel InformationOrdered By: Richard Sánchez on 08-03-2024 [facility] Work Phone: PHOSPHATE, INORGANICon 08-03 Phosphate [Mass/Vol] 3.5 mg/dL 2.2 - 4 .6 mg/dL [facility] Phosphorous 3.5 mg/dL Normal 2.2-4.6 [facility] Comment on above: Performed By: #### S URGP #### [facility] (DEFAULT) [address] [place] [address] SCREEN: MRSA/MSSAOrdered By: Gail Collado on 08-03-2024 Interpretation and review of laboratory results Normal [facility] Methicillin Resistant S. Aureus By Pcr Negative Negative [facility] Staphylococcus Aureus By Pcr Negative Negative [facility] SODIUMon 08-03-2024 Interpretation and review of laboratory results Normal [facility] Sodium [Moles/Vol] 139 mmol/L 135 - 145 mmol/L [facility] Sodium [Moles/Vol] 139 mmol/L Normal 135-145 [facility] Comment on above: Order Comment: While on 3% Hypertonic Saline. Performed By: #### N AO ####[facility] (DEFAULT)[address] [place] [address] Interpretation and review of laboratory results Abnormal [facility] Sodium [Moles/Vol] 134 mmol/L Low 135 - 145 mmol/L [facility] Sodium [Moles/Vol] 134 mmol/L Low 135-145 [facility] Comment on above: Order Comment: While on 3% Hypertonic Saline. Performed By: #### H EMOGC #### [facility] (DEFAULT) [address] [place], [place] [address] XR ABDOMEN 1 VIEW PORTABLEon 08-03-2024 XR [...] second portion of the duodenum. Normal [facility] XR Abdomen Single viewon RADIOLOGY RADIOLOGY [facility] Radiology Study observation (narrative) [facility] XR Abdomen Single viewOrdere d By: Huey Gibson on 08-03-2024 [facility] XR ELBOW RIGHT 2 VIEWSon XR ELBOW RIGHT 2 VIEWS EXAM: XR ELBOW RI GHT 2 VIEWS, XR HUMERUS RIGHT 2+ VIEWS, XR WRIST RIGHT 3+ VIEWS, 08/02/2024 23:24 PM (accession [id number]), 08/02/2024 23:24 PM (accession [id number]), 08/02/2024 23:23 PM (accession [id number]) COMPARISON: No prior studies available for comparison. [...] IMPRESSION: No acute osseous abnormality. Normal [facility] XR HUMERUS RIGHT 2+ VIEWSon 08-03-2024 XR HUMERUS RIGHT 2+ VIEWS EXAM: XR ELBOW RIGHT 2 VIEWS, XR HUMERUS RIGHT 2+ VIEWS, XR WRIST RIGHT 3+ VIEWS, 08/02/2024 23:24 PM (accession [id number]), 08/02/2024 23:24 PM (accession [id number]), 08/02/2024 23:23 PM (accession [id number]) COMPARISON: No prior studies available for comparison. [...] IMPRESSION: No acute osseous abnormality. Normal [facility] XR WRIST RIGHT 3+ VIEWSon XR WRIST RIGHT 3+ VIEWS EXAM: XR ELBOW R IGHT 2 VIEWS, XR HUMERUS RIGHT 2+ VIEWS, XR WRIST RIGHT 3+ VIEWS, 08/02/2024 23:24 PM (accession [id number]), 08/02/2024 23:24 PM (accession [id number]), 08/02/2024 23:23 PM (accession [id number]) COMPARISON: No prior studies available for comparison. [...] IMPRESSION: No acute osseous abnormality. Normal [facility] 12 Lead EKGon 08-02-2024 12 Lead EKG [facility] Cardiovascular Services [address] [place] [address] 12 Lead EKG 08/02/24 1309 MR#: [id number] Acct: [id number] Name: LINDSAY ACUNA Rep #: [id number] : 1945 78 From: Mj Benavides MD [...] ECG Confirmed by MAKAYLA LAWSON, MJ ([id number]), dictionary editor NAIMA BEARDEN ([id number]) on 08/05/2024 6:47:07 AM Referred By: Confirmed By: MJ BENAVIDES MD 08/05/24 0647 Date Mj Benavides MD CC: Dr. Pieter Morgan MD; Dr. Kameron Caruso MD Signed Normal [facility] Absolute lymphocyte countOrd ered By: Pieter Morgan on 08-02-2024 Lymphocytes Auto (Unsp spec) [#/Vol] 1.56 10*3/uL 0.83-4.51 [facility] Absolute neutrophil countOrd ered By: Pieter Morgan on 08-02-2024 Neutrophils (Bld) [#/Vol] 6.2 10*3/uL 2.0-7.7 [facility] Activated partial thrombopla stin time (aPTT) in platelet poor plasma by coagulation aOrdered By: Pieter Morgan on 08-02-2024 aPTT Coag (PPP) [Time] 28.4 s 24.1-36.2 [facility] Anion gap in Serum or Plasma Ordered By: Pieter Morgan on 08-02-2024 Anion gap [Moles/Vol] 12 mmol/L 5-15 [facility] Automated lymphocyte count a s percentage of total leukocytesOrdered By: Pieter Morgan on 08-02-2024 Lymphocytes/100 WBC Auto (Unsp spec) 17.9 % Low [facility] BUN/creatinine ratioOrdered By: Pieter Morgan on 08-02-2024 Urea nitrogen/Creatinine [Mass ratio] 11.6 mg/mg 03-03 [facility] Basic Metabolic Profile (BMP )on 08-02-2024 BUN/CRE 11.6 RATIO Normal 03-03 [facility] Comment on above: Performed By: #### L 300.4310, L501.4021, L300.3900, L500.2500, L100.0100 #### [facility] [address] [place], [address] Calcium [Mass/Vol] 9.0 mg/dL Normal 7.6-11.0 [facility] Comment on above: Performed By: #### L 300.4310, L501.4021, L300.3900, L500.2500, L100.0100 #### [facility] [address] [place], [address] Chloride [Moles/Vol] 98 mmol/L Normal 98-108 [facility] Comment on above: Performed By: #### L 300.4310, L501.4021, L300.3900, L500.2500, L100.0100 #### [facility] [address] [place], [address] CO2 [Moles/Vol] 22.0 mmol/L Normal 21.0-32.0 [facility] Comment on above: Performed By: #### L 300.4310, L501.4021, L300.3900, L500.2500, L100.0100 #### [facility] [address] [place], [address] Creatinine [Mass/Vol] 1.74 mg/dL High 0.70-1.20 [facility] Comment on above: Performed By: #### L 300.4310, L501.4021, L300.3900, L500.2500, L100.0100 #### [facility] [address] [place], [address] ECRCL 27.14 ml/min Low 50-250 [facility] Comment on above: Performed By: #### L 300.4310, L501.4021, L300.3900, L500.2500, L100.0100 #### [facility] [address] [place], [address] GAP 12 Normal 5-15 [facility] Comment on above: Performed By: #### L 300.4310, L501.4021, L300.3900, L500.2500, L100.0100 #### [facility] [address] [place], [address] GFR/1.73 sq M.predicted among non-blacks MDRD (S/P/Bld) [Vol rate/Area] 29 mL/min/{1.73_m2} Low >60 [facility] Comment on above: Result Comment: mL/m in/1.73m2 CKD-EPI Creatinine Equation (2020) Performed By: #### L 300.4310, L501.4021, L300.3900, L500.2500, L100.0100 #### [facility] [address] [place], [address] Glucose [Mass/Vol] 235 mg/dL High 70-99 [facility] Comment on above: Performed By: #### L 300.4310, L501.4021, L300.3900, L500.2500, L100.0100 #### [facility] [address] [place], [address] Potassium [Moles/Vol] 4.2 mmol/L Normal 3.3-5.1 [facility] Comment on above: Performed By: #### L 300.4310, L501.4021, L300.3900, L500.2500, L100.0100 #### [facility] [address] [place], [address] Sodium [Moles/Vol] 132 mmol/L Low 133-145 [facility] Comment on above: Performed By: #### L 300.4310, L501.4021, L300.3900, L500.2500, L100.0100 #### [facility] [address] [place], [address] Urea nitrogen [Mass/Vol] 20 mg/dL High 4-19 [facility] Comment on above: Performed By: #### L 300.4310, L501.4021, L300.3900, L500.2500, L100.0100 #### [facility] [address] [place], [address] Basophil percentageOrdered B y: Pieter Morgan on 08-02-2024 Basophils/100 WBC (Bld) 0.5 % 0-1 [facility] CBC W/Diff, Automatedon 07-14 Absolute Lymph 1.56 X10 3/uL Normal 0.83-4.51 [facility] Comment on above: Performed By: #### L 300.4310, L501.4021, L300.3900, L500.2500, L100.0100 #### [facility] [address] [place], [address] Absolute Neut 6.2 X10 3/uL Normal 2.0-7.7 [facility] Comment on above: Performed By: #### L 300.4310, L501.4021, L300.3900, L500.2500, L100.0100 #### [facility] [address] [place], [address] Basophils/100 WBC (Bld) 0.5 % Normal 0-1 [facility] Comment on above: Performed By: #### L 300.4310, L501.4021, L300.3900, L500.2500, L100.0100 #### [facility] [address] [place], [address] Eosinophils/100 WBC (Bld) 1.0 % Normal 0-5 [facility] Comment on above: Performed By: #### L 300.4310, L501.4021, L300.3900, L500.2500, L100.0100 #### [facility] [address] [place], [address] Erythrocyte distribution width (RBC) [Ratio] 13.3 % Normal 11.6-14.6 [facility] [facility] Comment on above: Performed By: #### L 300.4310, L501.4021, L300.3900, L500.2500, L100.0100 #### [facility] [address] [place], [address] Hematocrit (Bld) [Volume fraction] 42.0 % Normal 37-47 [facility] Comment on above: Performed By: #### L 300.4310, L501.4021, L300.3900, L500.2500, L100.0100 #### [facility] [address] [place], [address] Hemoglobin (Bld) [Mass/Vol] 13.8 g/dL Normal 12.0-15.0 [facility] Comment on above: Performed By: #### L 300.4310, L501.4021, L300.3900, L500.2500, L100.0100 #### [facility] [address] [place], [address] IG% 0.300 Normal 0.0-0.9 [facility] Comment on above: Result Comment: IG% - Immature Granulocytes (promyelocytes, myelocytes and metamyelocytes) > 1% indicates that a LEFT SHIFT is Present. Performed By: #### L 300.4310, L501.4021, L300.3900, L500.2500, L100.0100 #### [facility] [address] [place], [address] Lymphocytes/100 WBC (Bld) 17.9 % Low 19-41 [facility] Comment on above: Performed By: #### L 300.4310, L501.4021, L300.3900, L500.2500, L100.0100 #### [facility] [address] [place], [address] MCH (RBC) [Entitic mass] 30.3 pg Normal 27.0-32.0 [facility] Comment on above: Performed By: #### L 300.4310, L501.4021, L300.3900, L500.2500, L100.0100 #### [facility] [address] [place], [address] MCHC (RBC) [Mass/Vol] 32.9 g/dL Normal 32-36 [facility] Comment on above: Performed By: #### L 300.4310, L501.4021, L300.3900, L500.2500, L100.0100 #### [facility] [address] [place], [address] MCV (RBC) [Entitic vol] 92.1 fL Normal 81-99 [facility] [facility] Comment on above: Performed By: #### L 300.4310, L501.4021, L300.3900, L500.2500, L100.0100 #### [facility] [address] [place], [address] Monocytes/100 WBC (Bld) 8.9 % Normal 0-10 [facility] Comment on above: Performed By: #### L 300.4310, L501.4021, L300.3900, L500.2500, L100.0100 #### [facility] [address] [place], [address] Neutrophils/100 WBC (Bld) 71.4 % High 47-70 [facility] Comment on above: Performed By: #### L 300.4310, L501.4021, L300.3900, L500.2500, L100.0100 #### [facility] [address] [place], [address] Nucleated RBC (Bld) [#/Vol] 0 10*3/uL Normal 0-5 [facility] Comment on above: Performed By: #### L 300.4310, L501.4021, L300.3900, L500.2500, L100.0100 #### [facility] [address] [place], [address] Platelet mean volume (Bld) [Entitic vol] 10.7 fL Normal 6.2-12.0 [facility] Comment on above: Performed By: #### L 300.4310, L501.4021, L300.3900, L500.2500, L100.0100 #### [facility] [address] [place], [address] Platelets (Bld) [#/Vol] 214 10*3/uL Normal 150-450 [facility] Comment on above: Performed By: #### L 300.4310, L501.4021, L300.3900, L500.2500, L100.0100 #### [facility] [address] [place], [address] RBC (Bld) [#/Vol] 4.56 10*6/uL Normal 4.2-5.4 [facility] Comment on above: Performed By: #### L 300.4310, L501.4021, L300.3900, L500.2500, L100.0100 #### [facility] [address] [place], [address] RDW SD 45.3 fl High 35.1-43.9 [facility] Comment on above: Performed By: #### L 300.4310, L501.4021, L300.3900, L500.2500, L100.0100 #### [facility] [address] [place], [address] WBC (Bld) [#/Vol] 8.7 10*3/uL Normal 4.4-11.0 [facility] Comment on above: Performed By: #### L 300.4310, L501.4021, L300.3900, L500.2500, L100.0100 #### [facility] [address] [facility], [address] CBC,PLATELETSon 08-02-2024 Erythrocyte distribution width (RBC) [Ratio] 13.3 % 10.8 - 14.9 % [facility] Hematocrit (Bld) [Volume fraction] 43.8 % 34.9 - 44.3 % [facility] Hemoglobin (Bld) [Mass/Vol] 14 g/dL 11.4 - 15.2 g/dL [facility] Interpretation and review of laboratory results Normal [facility] MCH (RBC) [Entitic mass] 29.4 pg 25.9 - 33.9 pg [facility] MCHC (RBC) [Mass/Vol] 32 g/dL 31.4 - 35.9 g/dL [facility] MCV (RBC) [Entitic vol] 92 fL 79.6 - 97.7 fL [facility] Platelet mean volume (Bld) [Entitic vol] 10.8 fL 8.5 - 12.2 fL [facility] Platelets (Bld) [#/Vol] 245 10*3/uL 150 - 393 K/uL [facility] RBC (Bld) [#/Vol] 4.76 10*6/uL [facility] WBC (Bld) [#/Vol] 8.16 10*3/uL 3.99 - 11.19 K/uL [facility] Hematocrit (Bld) [Volume fraction] 43.8 % Normal 34.9-44.3 [facility] Comment on above: Performed By: #### B LDCULT #### [facility] (DEFAULT) [address] [place] [address] Hemoglobin (Bld) [Mass/Vol] 14.0 g/dL Normal 11.4-15.2 [facility] Comment on above: Performed By: #### B LDCULT #### [facility] (DEFAULT) [address] [place] [address] MCV (RBC) [Entitic vol] 92.0 fL Normal 79.6-97.7 [facility] Comment on above: Performed By: #### B LDCULT #### [facility] (DEFAULT) [address] [place] [address] Mean Cell Hgb 29.4 pg Normal 25.9-33.9 [facility] Comment on above: Performed By: #### B LDCULT #### [facility] (DEFAULT) [address] [place] [address] Mean Cell Hgb Conc 32.0 g/dL Normal 31.4-35.9 [facility] Comment on above: Performed By: #### B LDCULT #### [facility] (DEFAULT) [address] [place] [address] Platelet mean volume (Bld) [Entitic vol] 10.8 fL Normal 8.5-12.2 [facility] Comment on above: Performed By: #### B LDCULT #### [facility] (DEFAULT) [address] [place] [address] Platelets (Bld) [#/Vol] 245 10*3/uL Normal 150-393 [facility] Comment on above: Performed By: #### B LDCULT #### [facility] (DEFAULT) [address] [place] [address] RBC (Bld) [#/Vol] 4.76 10*6/uL Normal 3.91-5.04 [facility] Comment on above: Performed By: #### B LDCULT #### [facility] (DEFAULT) [address] [place] [address] RBC Distribution 13.3 % Normal 10.8-14.9 [facility] Comment on above: Performed By: #### B LDCULT #### [facility] (DEFAULT) [address] [place] [address] WBC (Bld) [#/Vol] 8.16 10*3/uL Normal 3.99-11.19 [facility] Comment on above: Performed By: #### B LDCULT #### [facility] (DEFAULT) [address] [place] [address] CHEM 7 (LYTES,BUN,CREA,GLUC) on 08-02-2024 Anion gap [Moles/Vol] 16 mmol/L 7 - 17 mmol/L [facility] Chloride [Moles/Vol] 105 mmol/L 98 - 10 8 mmol/L [facility] CO2 [Moles/Vol] 22 mmol/L 21 - 31 mmol/L [facility] Creatinine [Mass/Vol] 1.37 mg/dL High 0.50 - 1.20 mg/dL [facility] eGFR, CKD-EPI, Female 39 Low - PINF [facility] Glucose [Mass/Vol] 210 mg/dL High 70 - 179 mg/dL [facility] Osmolality Calc [Osmolality] 299 [facility] Potassium [Moles/Vol] 3.7 mmol/L 3.5 - 5.0 mmol/L [facility] Sodium [Moles/Vol] 139 mmol/L 135 - 145 mmol/L [facility] Urea nitrogen [Mass/Vol] 18 mg/dL 7 - 25 mg/dL [facility] Urea nitrogen/Creatinine [Mass ratio] 13 mg/mg [facility] Anion gap [Moles/Vol] 16 mmol/L Normal 7-17 [facility] Comment on above: Performed By: #### [facility] #### [facility] (DEFAULT) [address] [place] [address] Chloride [Moles/Vol] 105 mmol/L Normal 98-108 [facility] Comment on above: Performed By: #### H EMO #### [facility] (DEFAULT) [address] [place] [address] CO2 [Moles/Vol] 22 mmol/L Normal 21-31 [facility] Comment on above: Performed By: #### [facility] #### [facility] (DEFAULT) [address] [place] [address] Creatinine [Mass/Vol] 1.37 mg/dL High 0.50-1.20 [facility] Comment on above: Performed By: #### [facility] #### [facility] (DEFAULT) [address] [place] [address] GFR/1.73 sq M.predicted among non-blacks MDRD (S/P/Bld) [Vol rate/Area] 39 mL/min/{1.73_m2} Low >=60 [facility] Comment on above: Result Comment: Repo rted eGFR is based on the CKD-EPI 2020 equation using creatinine, age, and sex. Performed By: #### [facility] #### [facility] (DEFAULT) [address] [place] [address] Glucose [Mass/Vol] 210 mg/dL High Nonfastin -179 mg/dL; Fastin-99 [facility] Comment on above: Performed By: #### H EMOGC #### [facility] (DEFAULT) [address] [place] [address] Osmolality [Osmolality] 299 mosm/kg Normal 278-305 [facility] Comment on above: Performed By: #### H EMO #### [facility] (DEFAULT) [address] [place] [address] Potassium [Moles/Vol] 3.7 mmol/L Normal 3.5-5.0 [facility] Comment on above: Performed By: #### H EMO #### [facility] (DEFAULT) [address] [place] [address] Sodium [Moles/Vol] 139 mmol/L Normal 135-145 [facility] Comment on above: Performed By: #### H EMO #### [facility] (DEFAULT) [address] [place] [address] Urea nitrogen [Mass/Vol] 18 mg/dL Normal 7-25 [facility] Comment on above: Performed By: #### H EMO #### [facility] (DEFAULT) [address] [place] [address] Urea nitrogen/Creatinine [Mass ratio] 13 mg/mg Normal [facility] Comment on above: Performed By: #### H EMO #### [facility] (DEFAULT) [address] [place] [address] ABDOMEN/PELVIS WITH CONTR AST VASCULAR TRAUMAon [...] None. Kidney trauma grade: None. Normal [facility] CT Abdomen and Pelvis W cont rast Seth 08-02-2024 RADIOLOGY RADIOLOGY [facility] CT Abdomen and Pelvis W cont rast IVOrdered By: Edson Head on 08-02-2024 [facility] Work Phone: CT Cervical spine WO contras ton 08-02-2024 Radiology Study observation (narrative) [facility] CT Orbit WO contraston 08-02 Radiology Study observation (narrative) [facility] Carbon dioxide, total [Moles /volume] in Central venous bloodOrdered By: Pieter Morgan on 08-02-2024 CO2 [Moles/Vol] 22.0 mmol/L 21.0-32.0 [facility] Chloride assayOrdered By: Racheal Morgan on 08-02-2024 Chloride [Moles/Vol] 98 mmol/L 98-108 [facility] Emergency Department Summary on 08-02-2024 Emergency Department Summary [facility] Medical Records Department [address] [place] [address] Emergency Department Summary 08/02/24 MR#: [id number] Acct: [id number] Name: LINDSAY ACUNA NOAH Rep #: [id number] : [id number] From: Pieter Morgan MD [...] EMR. states they returned home from [facility] about 1.5-2 weeks ago, and they both had colds. He is better, but she is "on round 2." [facility] Medical History Paroxysmal atrial fibrillation with RVR [...] normal respir (more content not included)... Normal [facility] Eosinophil percentageOrdered By: Pieter Morgan on 08-02-2024 Eosinophils/100 WBC (Bld) 1.0 % 0-5 [facility] Erythrocyte distribution wid th ratioOrdered By: Pieter Morgan on 08-02-2024 Erythrocyte distribution width (RBC) [Ratio] 13.3 % 11.6-14.6 [facility] Erythrocyte distribution wid th standard deviationOrdered By: Pieter Morgan on 08-02-2024 Erythrocyte distribution width (RBC) [Entitic vol] 45.3 fL High 35.1-43.9 [facility] Erythrocyte distribution width (RBC) [Ratio] 45.3 fl High 35.1-43.9 [facility] Estimation of creatinine mackenzie aranceOrdered By: Pieter Morgan on 08-02-2024 Estimated Creatinine Clearance Calc 27.14 ml/min Low 50-250 [facility] GFR/1.73 sq M.predicted lana g non-blacks MDRD (S/P/Bld) [Vol rate/Area]Ordered By: Pieter Morgan on 08-02-2024 Estimated GFR (MDRD) Non-Af Amer 29 Low >60 [facility] Comment on above: mL/min/1.73m2 CKD-EP I Creatinine Equation (2020) Glomerular filtration rate ( GFR) estimation/1.73 sq m using serum, plasma, or whole bOrdered By: Pieter Morgan on 08-02-2024 GFR/1.73 sq M.predicted among non-blacks MDRD (S/P/Bld) [Vol rate/Area] 29 mL/min/{1.73_m2} Low >60 [facility] Comment on above: mL/min/1.73m2 CKD-EP I Creatinine Equation (2020) HEMOGLOBIN A1Con 08-02-2024 Average glucose Estimated from glycated hemoglobin (Bld) [Mass/Vol] 177 mg/dL [facility] HbA1c (Bld) [Mass fraction] 7.8 % High 4.7 - 5.6 % [facility] Interpretation and review of laboratory results Abnormal [facility] Glucose [Mass/Vol] 177 mg/dL Normal [facility] Comment on above: Performed By: #### H EMO #### [facility] (DEFAULT) [address] [place] [address] Hemoglobin A1C HPLC 7.8 % High 4.7-5.6 [facility] Comment on above: Performed By: #### H EMO #### [facility] (DEFAULT) [address] [place] [address] HEPATIC FUNCTION PANELon Albumin [Mass/Vol] 3.5 g/dL 3.5 - 5.0 g/dL [facility] ALP [Catalytic activity/Vol] 117 U/L 32 - 126 U/L [facility] ALT [Catalytic activity/Vol] 10 U/L 9 - 48 U/L [facility] AST [Catalytic activity/Vol] 17 U/L 10 - 39 U/L [facility] Bilirubin [Mass/Vol] 0.6 mg/dL NINF - 1.5 mg/dL [facility] Bilirubin.direct [Mass/Vol] 0.1 mg/dL [facility] mg/dL [facility] Protein [Mass/Vol] 6.3 g/dL Low 6.4 - 8.3 g/dL [facility] Albumin [Mass/Vol] 3.5 g/dL Normal 3.5-5.0 [facility] Comment on above: Performed By: #### [facility] #### [facility] (DEFAULT) [address] [place] [address] ALP [Catalytic activity/Vol] 117 U/L Normal 32-126 [facility] Comment on above: Performed By: #### H EMO #### [facility] (DEFAULT) [address] [place] [address] ALT [Catalytic activity/Vol] 10 U/L Normal 9-48 [facility] Comment on above: Performed By: #### H EMO #### [facility] (DEFAULT) [address] [place] [address]578 AST [Catalytic activity/Vol] 17 U/L Normal 10-39 [facility] Comment on above: Performed By: #### H EMO #### [facility] (DEFAULT) [address] [place] [address] 19602 Bilirubin [Mass/Vol] 0.6 mg/dL Normal <1.5 [facility] Comment on above: Performed By: #### H EMOGC #### [facility] (DEFAULT) [address] [place] [address] Bilirubin.indirect [Mass/Vol] 0.1 mg/dL Normal <0.3 [facility] Comment on above: Performed By: #### H EMOGC #### [facility] (DEFAULT) [address] [place] [address] Protein [Mass/Vol] 6.3 g/dL Low 6.4-8.3 [facility] Comment on above: Performed By: #### [facility] #### [facility] (DEFAULT) [address] [place] [address] HIGH SENSITIVITY TROPONIN I - SINGLE ORDERon 08-02-2024 Interpretation and review of laboratory results Normal [facility] Troponin I.cardiac High sensitivity method [Mass/Vol] 9 ng/L NINF - 34 ng/L [facility] hs-Troponin I 9 ng/L Normal <34 [facility] Comment on above: Order Comment: 2 [...] bottle. Performed By: #### B LDCULT #### [facility] (DEFAULT) [address] [place] [address] Hematocrit Auto (Bld) [Volum e fraction]Ordered By: Pieter Morgan on 08-02-2024 Hematocrit (Bld) [Volume fraction] 42.0 % 37-47 [facility] Hemoglobin measurementOrdere d By: Pieter Cathy on 08-02-2024 Hemoglobin (Bld) [Mass/Vol] 13.8 g/dL 12.0-15.0 [facility] Immature granulocytes/100 WB C Auto (Bld)Ordered By: Pieter Morgan on 08-02-2024 Immature granulocytes/100 WBC (Bld) 0.300 % 0.0-0.9 [facility] Comment on above: IG% - Immature Granu locytes (promyelocytes, myelocytes and metamyelocytes) > 1% indicates that a LEFT SHIFT is Present. Influenza virus A and B and SARS-CoV-2 (COVID-19) and Respiratory syncytial virus RNAOrdered By: Pieter Cathy on 08-02-2024 SARS-CoV-2 (COVID-19) RNA CHUCKY+probe Ql (Unsp spec) [facility] [employer] normalized rat io (INR) calculationOrdered By: Pieter Morgan on 08-02-2024 INR Coag (Bld) [Relative time] 1.1 {INR} [facility] L499.0042on 08-02-2024 Trop T High Sen Normal <=14 [facility] Comment on above: Result Comment: Canc elled via OM: Order cancelled - Patient discharged Performed By: #### L 499.0042 ####[facility] [address] [place], [address] L499.0043on 08-02-2024 Trop T High Sen Normal <=14 [facility] Comment on above: Result Comment: Canc elled via OM: Order cancelled - Patient discharged Performed By: #### L 499.0043 ####[facility] [address] [place], [address] L501.4021on 08-02-2024 Trop T High Sen 38 ng/L High <=14 [facility] Comment on above: Performed By: #### L 300.4310, L501.4021, L300.3900, L500.2500, L100.0100 ####[facility] [address] [place], [place], [id number] LIPID PANEL WITH REFLEX TO M A[place] LDLon 08-02-2024 Cholesterol [Mass/Vol] 141 mg/dL NINF - 200 mg/dL [facility] Cholesterol in HDL [Mass/Vol] 38 mg/dL Low 40 - PINF mg/dL [facility] Cholesterol in LDL [Mass/Vol] 84 mg/dL 0 - 99 mg/dL [facility] Cholesterol non HDL [Mass/Vol] 103 mg/dL NINF - 130 mg/dL [facility] Cholesterol.total/Alta sterol in HDL [Mass ratio] 3.7 {ratio} NINF - 4.5 [facility] Triglyceride [Mass/Vol] 96 mg/dL NINF - 150 mg/dL [facility] Calculated LDL Cholesterol 84 mg/dL Normal 0-99 [facility] Comment on above: Result Comment: [<10 0 mg/dL: Optimal] [100-129 mg/dL: Near Optimal] [130-159 mg/dL: Borderline High] [160-189 mg/dL: High] [>189 mg/dL: Very High] Performed By: #### [facility] #### [facility] (DEFAULT) [address] [place] [address] Cholesterol [Mass/Vol] 141 mg/dL Normal <200 [facility] Comment on above: Result Comment: [<20 0 mg/dL: Desirable] [200-239 mg/dL: Borderline High] [>239 mg/dL: High] Performed By: #### [facility] #### [facility] (DEFAULT) [address] [place] [address] Cholesterol in HDL [Mass/Vol] 38 mg/dL Low >=40 [facility] Comment on above: Result Comment: [<40 mg/dL: Low (High Risk)] [>59 mg/dL: High (Low Risk)] Performed By: #### H EMO #### [facility] (DEFAULT) [address] [place] [address]45 Non HDL Cholesterol 103 mg/dL Normal <130 [facility] Comment on above: Performed By: #### [facility] #### [facility] (DEFAULT) [address] [place] [address]71 Total Cholesterol/HDL Ratio 3.7 Normal <4.5 [facility] Comment on above: Performed By: #### [facility] #### [facility] (DEFAULT) [address] [place] [address] Triglyceride [Mass/Vol] 96 mg/dL Normal <150 [facility] Comment on above: Result Comment: [<15 0 mg/dL: Desirable] [150-199 mg/dL: Borderline] [200-499 mg/dL: High] [>500 mg/dL: Very High] Performed By: #### [facility] #### [facility] (DEFAULT) [address] [place] [address] Lymphocytes Auto (Unsp spec) [#/Vol]Ordered By: Pieter Morgan on 08-02-2024 Lymphocytes (Bld) [#/Vol] 1.56 10*3/uL 0.83-4.51 [facility] Lymphocytes/100 WBC Auto (Un sp spec)Ordered By: Pieter Morgan on 08-02-2024 Lymphocytes/100 WBC (Bld) 17.9 % Low 19-41 [facility] M100.678on 08-02-2024 M100.678 Pending SARS-CoV-2 (COVID 19) Negative INFLUENZA A Negative INFLUENZA B Negative RSV PCR Negative Normal [facility] Comment on above: Performed By: #### M 100.678 #### [facility] [address] [place], [place], [id number] MAGNESIUMon 08-02-2024 Magnesium [Mass/Vol] 1.2 mg/dL Low 1.6 - 2 .6 mg/dL [facility] Magnesium [Mass/Vol] 1.2 mg/dL Low 1.6-2.6 [facility] Comment on above: Performed By: #### [facility] #### [facility] (DEFAULT) [address] [place] [address] MCV (mean corpuscular volume ) determinationOrdered By: Pieter Morgan on 08-02-2024 MCV (RBC) [Entitic vol] 92.1 fL 81-99 [facility] Mean corpuscular hemoglobin (MCH) determinationOrdered By: Pieter Morgan on 08-02-2024 MCH (RBC) [Entitic mass] 30.3 pg 27.0-32.0 [facility] Mean corpuscular hemoglobin concentration (MCHC) determinationOrdered By: Pieter Morgan on 08-02-2024 MCHC (RBC) [Mass/Vol] 32.9 g/dL 32-36 [facility] Mean platelet volume determi nationOrdered By: Pieter Morgan on 08-02-2024 Platelet mean volume (Bld) [Entitic vol] 10.7 fL 6.2-12.0 [facility] Monocyte percentageOrdered B y: Pieter Morgan on 08-02-2024 Monocytes/100 WBC (Bld) 8.9 % 0-10 [facility] NT-PRO B-TYPE NATRIURETIC PE PTIDEon 08-02-2024 Natriuretic peptide B (Bld) [Mass/Vol] 1115 pg/mL High <=540 [facility] Comment on above: Performed By: #### [facility] #### [facility] (DEFAULT) [address] [place] [address] Neutrophil percentageOrdered By: Pieter Morgan on 08-02-2024 Neutrophils/100 WBC (Bld) 71.4 % High 47-70 [facility] No Panel Informationon 08-02 Radiology Study observation (narrative) [facility] Interpretation and review of laboratory results Abnormal [facility] No Panel InformationOrdered By: Pieter Morgan on 08-02-2024 Troponin T High Sensitivity 38 ng/L High <14 [facility] Nucleated red blood cell per centageOrdered By: Pieter Morgan on 08-02-2024 Nucleated RBC/100 WBC (Bld) [Ratio] 0 % 0-5 [facility] PT,INR,PTTon 08-02-2024 aPTT Coag (PPP) [Time] 26.9 s [facility] INR Coag (Bld) [Relative time] 1.1 {INR} 0.9 - 1.1 [facility] Interpretation and review of laboratory results Normal [facility] PT Coag (PPP) [Time] 13.9 s [facility] a[facility] Coag (Bld) [Time] 26.9 s Normal 24.0-34.3 [facility] Comment on above: Performed By: #### P TPTT ####[facility] (DEFAULT)[address] [place] [address] INR Coag (PPP) [Relative time] 1.1 {INR} Normal 0.9-1.1 [facility] Comment on above: Performed By: #### P TPTT ####[facility] (DEFAULT)[address] [place] [address] PT Coag (PPP) [Time] 13.9 s Normal 11.9-14.2 [facility] Comment on above: Performed By: #### P TPTT ####[facility] (DEFAULT)[address] [place] [address] Partial Thromboplast Timeon 08-02-2024 aPTT Coag (Bld) [Time] 28.4 s Normal 24.1-36.2 [facility] Comment on above: Performed By: #### L 300.4310, L501.4021, L300.3900, L500.2500, L100.0100 #### [facility] [address] [place], [place], [id number] Platelet countOrdered By: Racheal Morgan on 08-02-2024 Platelets (Bld) [#/Vol] 214 10*3/uL 150-450 [facility] Potassium (Unsp spec) [Mass/ Vol]Ordered By: Pieter Morgan on 08-02-2024 Potassium [Moles/Vol] 4.2 mmol/L 3.3-5.1 [facility] Potassium measurement (mass/ volume)Ordered By: Pieter Morgan on 08-02-2024 Potassium (Unsp spec) [Mass/Vol] 4.2 mmol/L 3.3-5.1 [facility] Prothrombin Time w/INRon INR Coag (PPP) [Relative time] 1.1 {INR} Normal [facility] Comment on above: Performed By: #### L 300.4310, L501.4021, L300.3900, L500.2500, L100.0100 #### [facility] [address] [place], [address] PT Coag (PPP) [Time] 14.1 s Normal 11.7-14.9 [facility] Comment on above: Performed By: #### L 300.4310, L501.4021, L300.3900, L500.2500, L100.0100 #### [facility] [address] [place], [place], [id number] Prothrombin timeOrdered By: Pieter Morgan on 08-02-2024 PT Coag (PPP) [Time] 14.1 s 11.7-14.9 [facility] RBC Auto (Bld) [#/Vol]Ordere d By: Pieter Cathy on 08-02-2024 RBC (Bld) [#/Vol] 4.56 10*6/uL 4.2-5.4 [facility] SCREEN: MRSA/MSSAon 08-03-19 25 Methicillin Resistant S. Aureus By Pcr Negative Normal Negative [facility] Comment on above: Order Comment: Colle [...] the Clinical Microbiology Laboratory at [facility]. It has not been cleared or approved by the FDA.The laboratory is regulated under CLIA as qualified to perform high-complexity testing. This test is used for clinical purposes. It should not be regarded as investigational or for research. Performed By: #### T YPEC #### [facility] (DEFAULT) [address] [address] Staphylococcus Aureus By Pcr Negative Normal Negative [facility] Comment on above: Order Comment: Colle [...] the Clinical Microbiology Laboratory at [facility]. It has not been cleared or approved by the FDA.The laboratory is regulated under CLIA as qualified to perform high-complexity testing. This test is used for clinical purposes. It should not be regarded as investigational or for research. Performed By: #### T YPEC #### [facility] (DEFAULT) [address] [address] STROKE Brain/Head without Co nton 08-02-2024 STROKE Brain/Head without Cont [facility] Imaging Services [address] [place] [address] [id number] STROKE Brain/Head without Cont MR#: [id number] Acct: [id number] Name: LINDSAY ACUNA Rep #: [id number] : 1945 F 78 From: Kameron Cardoso MD PCP: Dr. Kameron Caruso MD Status: REG ER Study: STROKE Brain/Head without Cont Date of Exam: 0 08/02/24 Exam# [id number] Ordering Dr: Pieter Morgan MD EXAM: CT [...] on 08/02/2024 at 1250 hours. Reading Location: [facility] CC: Dr. Pieter Morgan MD; Dr. Kameron Caruso MD Nanotechnologist: Signed Normal [facility] STROKE CTA Head AND Neck W/C onon 08-02-2024 STROKE CTA Head AND Neck W/Con [facility] Imaging Services [address] [place] [address] STROKE CTA Head AND Neck W/Con MR#: [id number] Acct: [id number] Name: LINDSAY ACUNA Rep #: [id number] : 1945 F 78 From: August ibrahim MD PCP: Dr. Kameron Caruso MD Status: REG ER Study: STROKE CTA Head AND Neck W/Con Date of Exam: 0 08/02/24 Exam# [id number] Ordering Dr: Pieter Morgan MD PROCEDURE: STROKE [...] impression: No significant stenosis seen. Reading Location: [place] [address] CC: Dr. Pieter Morgan MD; Dr. Kameron Caruso MD Nanotechnologist: Signed Normal [facility] Serum creatinine measurement (mass/volume)Ordered By: Pieter Morgan on 08-02-2024 Creatinine [Mass/Vol] 1.74 mg/dL High 0.70-1.20 [facility] Serum glucose measurement (m ass/volume)Ordered By: Pieter Morgan on 08-02-2024 Glucose [Mass/Vol] 235 mg/dL High 70-99 [facility] Serum or plasma calcium dayna urement (mass/volume)Ordered By: Pieter Morgan on 08-02-2024 Calcium [Mass/Vol] 9.0 mg/dL 7.6-11.0 [facility] Serum or plasma urea nitroge n measurement (mass/volume)Ordered By: Pieter Morgan on 08-02-2024 Urea nitrogen [Mass/Vol] 20 mg/dL High 4-19 [facility] Sodium levelOrdered By: Evert Morgan on 08-02-2024 Sodium [Moles/Vol] 132 mmol/L Low 133-145 [facility] TSH W/FT4 REFLEXon Interpretation and review of laboratory results Normal [facility] TSH Qn 1.662 m[IU]/L [facility] TSH 1.662 uIU/mL Normal 0.550-4.780 [facility] Comment on above: Performed By: #### X M #### [facility] (DEFAULT) [address] [place] [address] TYPE AND SCREENon 08-02-2024 ABO/RH(D) TYPE Negative [facility] Specimen Expiration 08/05/2024 23:59 [facility] ABO/RH(D) TYPE Negative Normal [facility] Comment on above: Performed By: #### X M #### [facility] (DEFAULT) [address] [place] [address] Specimen Expiration 08/05/2024 23:59 Normal [facility] Comment on above: Performed By: #### X M #### [facility] (DEFAULT) [address] [place] [address] URINALYSIS REFLEX TO CULTURE PERFORMABLEOrdered By: Namita De La Cruz on 08-02-2024 Appearance (U) Clear Clear [facility] Bacteria LM Ql (Urine sed) PRESENT Abnormal ABSENT [facility] Color (U) Yellow Yellow [facility] Epithelial cells.squamous LM Ql (Urine sed) 0-2/hpf 0-2/hpf, 3-5/hpf = 1+ [facility] Glucose Test strip (U) [Mass/Vol] 500 mg/dL Abnormal Negative [facility] Interpretation and review of laboratory results Abnormal [facility] Ketones (U) [Mass/Vol] Negative Negative [facility] Leukocyte esterase Test strip Ql (U) Moderate Abnormal Negative [facility] Nitrite Ql (U) Negative Negative [facility] pH (U) 6.5 [pH] 5.0 - 7.0 [facility] Protein (U) [Mass/Vol] Negative Negative [facility] RBC (U) [#/Vol] Small Abnormal Negative [facility] RBC LM.HPF (Urine sed) [#/Area] 3-5 Abnormal [facility] Specific gravity (U) [Rel density] 1.022 1.001 - 1.035 [facility] Urobilinogen (U) [Mass/Vol] 0.2 E.U./dL 0.2 E.U/dL, 1.0 E.U/dL [facility] WBC LM.HPF (Urine sed) [#/Area] /[HPF] Abnormal [facility] URINALYSIS REFLEX TO CULTURE PERFORMABLEon 08-02-2024 Appearance (U) Clear Normal Clear [facility] Comment on above: Order Comment: For i ndwelling catheters, specimen collection is acceptable on catheter day 1 and 2 only. ? Performed By: #### U [id number] #### [facility] (DEFAULT) [address] [place] [address] Bacteria PRESENT Abnormal ABSENT [facility] Comment on above: Order Comment: For i ndwelling catheters, specimen collection is acceptable on catheter day 1 and 2 only. ? Performed By: #### U [id number] #### [facility] (DEFAULT) [address] [place] [address] Blood Urine Small Abnormal Negative [facility] Comment on above: Order Comment: For i ndwelling catheters, specimen collection is acceptable on catheter day 1 and 2 only. ? Performed By: #### U [id number] #### [facility] (DEFAULT) [address] [place] [address] Color (U) Yellow Normal Yellow [facility] Comment on above: Order Comment: For i ndwelling catheters, specimen collection is acceptable on catheter day 1 and 2 only. ? Performed By: #### U [id number] #### [facility] (DEFAULT) [address] [place] [address] Glucose Ql (U) 500 mg/dL Abnormal Negative [facility] Comment on above: Order Comment: For i ndwelling catheters, specimen collection is acceptable on catheter day 1 and 2 only. ? Performed By: #### U [id number] #### [facility] (DEFAULT) [address] [place] [address] Ketones Ql (U) Negative Normal Negative [facility] Comment on above: Order Comment: For i ndwelling catheters, specimen collection is acceptable on catheter day 1 and 2 only. ? Performed By: #### U [id number] #### [facility] (DEFAULT) [address] [place] [address] Leukocyte esterase Test strip Ql (U) Moderate Abnormal Negative [facility] Comment on above: Order Comment: For i ndwelling catheters, specimen collection is acceptable on catheter day 1 and 2 only. ? Performed By: #### U [id number] #### [facility] (DEFAULT) [address] [place] [address] Nitrites Urine Negative Normal Negative [facility] Comment on above: Order Comment: For i ndwelling catheters, specimen collection is acceptable on catheter day 1 and 2 only. ? Performed By: #### U [id number] #### [facility] (DEFAULT) [address] [place] [address] pH (U) 6.5 [pH] Normal 5.0-7.0 [facility] Comment on above: Order Comment: For i ndwelling catheters, specimen collection is acceptable on catheter day 1 and 2 only. ? Performed By: #### U [id number] #### [facility] (DEFAULT) [address] [place] [address] Protein Urine Negative Normal Negative [facility] Comment on above: Order Comment: For i ndwelling catheters, specimen collection is acceptable on catheter day 1 and 2 only. ? Performed By: #### U [id number] #### [facility] (DEFAULT) [address] [address] RBC Urine 3-5 Abnormal 0-2 [facility] Comment on above: Order Comment: For i ndwelling catheters, specimen collection is acceptable on catheter day 1 and 2 only. ? Performed By: #### U [id number] #### [facility] (DEFAULT) [address] [address] Specific [place] Urine 1.022 Normal 1.001-1.035 [facility] Comment on above: Order Comment: For i ndwelling catheters, specimen collection is acceptable on catheter day 1 and 2 only. ? Performed By: #### U [id number] #### [facility] (DEFAULT) [address] [address] Squamous/Epithelial Cells, Urine 0-2/hpf Normal 0-2/hpf, 3-5/hpf = 1+ [facility] Comment on above: Order Comment: For i ndwelling catheters, specimen collection is acceptable on catheter day 1 and 2 only. ? Performed By: #### U [id number] #### [facility] (DEFAULT) [address] [address] Urobilinogen Urine 0.2 E.U./dL Normal 0.2 E.U/d L, 1.0 E.U/dL [facility] Comment on above: Order Comment: For i ndwelling catheters, specimen collection is acceptable on catheter day 1 and 2 only. ? Performed By: #### U [id number] #### [facility] (DEFAULT) [address] [address] WBC LM.HPF (Urine sed) [#/Area] /[HPF] Abnormal 0 - 5 [facility] Comment on above: Order Comment: For i ndwelling catheters, specimen collection is acceptable on catheter day 1 and 2 only. ? Performed By: #### U [id number] #### [facility] (DEFAULT) [address] [address] VON WILLEBRAND FACTOR AGon 0 08-02-2024 Von Willebrand Factor Antigen 230 % High 50-180 [facility] Comment on above: Performed By: #### [facility] #### [facility] (DEFAULT) [address] [place] [address] White blood cell (WBC) count Ordered By: Pieter Morgan on 08-02-2024 WBC (Bld) [#/Vol] 8.7 10*3/uL 4.4-11.0 [facility] XR Elbow - right 2 Viewson 0 08-02-2024 Radiology Study observation (narrative) [facility] XR Humerus - right Viewson 0 08-02-2024 Radiology Study observation (narrative) [facility] XR Wrist - right 3 Viewson 0 08-02-2024 Radiology Study observation (narrative) [facility] aPTT Coag (PPP) [Time]Ordere d By: Pieter Morgan on 08-02-2024 aPTT Coag (Bld) [Time] 28.4 s 24.1-36.2 [facility] CNPNon 07-03-2024 CNPN Telephone (FAMPWS) LINDSAY ACUNA ([id number]) 1945 F Date Time Provider Department 07/03/24 [...] calling: self Call patient at: on cell [phone] (home) [phone] (cell) Was an appointment scheduled: No Closing statement: Results or non-symptom based questions: Thank you for calling [facility], your call will be returned within the [...] Encounter Status:Closed by MJ GLOVER on 07/03/24 [facility] [place] 07-02-2024 [facility] Telephone ([employer]) LINDSAY ACUNA ([id number]) 1945 F Date Time Provider Department 07/02/24 KAMERON CARUSO [facility] During your visit today, we recorded the following information about you: Katia Álvarez RN 07/02/2024 11:57 AM Signed Patient calls and is requesting Cardiology referral to be faxed to [facility]. Faxed referral as requested. [...] Encounter Status:Closed by KATIA ÁLVAREZ on 07/02/24 [facility] [place] 06-28-2024 CNPN Telephone (FAMPTW) LINDSAY ACUNA ([id number]) 1945 F Date Time Provider Department 06/28/24 [...] calling: self Call patient at: on cell [phone] (home) [phone] (cell) Was an appointment scheduled: No [facility] Adenike Walton MA 06/28/2024 3:08 PM Signed [...] Encounter Status:Closed by BRET ARAMBULA on 07/01/24 [facility] CNOVon 06-26-2024 CNOV Office Visit (MILTONWS ) LINDSAY ACUNA ([id number]) 1945 F Date Time Provider Department 06/26/24 9:40 AM EMMA GLASGOW During your visit today, we recorded the following information about you: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 Publication No. 01-3305. 2. An International Atherosclerosis Society position paper: global recommendations for the management of dyslipidemia: executive summary, Atherosclerosis. 2014: 232(2):410-413. Performed By: #### 3 016-3, 02476-9, 96323-7 ####[facility] LABIA [id number] [place] [address] [place] Cholesterol in VLDL [Mass/Vol] 30 mg/dL High <30 [facility] Comment on above: Order Comment: Speci men Type: BLOOD SPECIMENOrdering Facility: [facility] Address: [address] [place] [address] Performed By: #### 3 016-3, 37294-8, 37155-4 ####[facility] LABCLIA [id number] [place] [address] [place] Cholesterol non HDL [Mass/Vol] 115 mg/dL Normal <130 [facility] Comment on above: Order Comment: Speci men Type: BLOOD SPECIMENOrdering Facility: [facility] Address: [address] [place] [address] Result Comment: <130 mg/dL, Optimal 130-159 mg/dL, Near optimal/above optimal 160-189 mg/dL, Borderline high 190-219 mg/dL, High >219 mg/dL, Very high Secondary prevention optimal non HDL Cholesterol levels are recommended to be <100 mg/dL Performed By: #### 3 016-3, 32359-1, 54790-0 ####[facility] LABCLIA [id number] [place] [address] [place] Cholesterol.total/Alta sterol in HDL [Mass ratio] 3.80 {ratio} Normal <5.10 [facility] Comment on above: Order Comment: Speci men Type: BLOOD SPECIMENOrdering Facility: [facility] Address: [address] [place] [address] Performed By: #### 3 016-3, 57332-1, 68656-3 ####[facility] LABCLIA [id number] [place] [address] [place] FASTING TIME 12 hrs Normal [facility] Comment on above: Order Comment: Speci men Type: BLOOD SPECIMENOrdering Facility: [facility] Address: [address] [place] [address] Performed By: #### 3 016-3, 86114-2, 21404-7 ####[facility] LABCLIA [id number] [place] [address] [place] Triglyceride [Mass/Vol] 148 mg/dL Normal <150 [facility] Comment on above: Order Comment: Speci men Type: BLOOD SPECIMENOrdering Facility: [facility] Address: [address] [place] [address] Result Comment: <150 mg/dL, Normal 150-199 mg/dL, Borderline high 200-499 mg/dL, High >499 mg/dL, Very high Performed By: #### 3 016-3, 95798-7, 51817-8 ####[facility] LABCLIA [id number] [place] [address] [place] TSH SerPl-aCncon 11-27-2023 TSH Qn 1.870 m[IU]/L Normal 0.270-4.200 [facility] Comment on above: Order Comment: Speci men Type: BLOOD SPECIMENOrdering Facility: [facility] Address: [address] [place] [address] Performed By: #### 3 016-3, 34416-5, 00539-6 ####[facility] LABCLIA [id number] [address] OF [place] CNOVon 10-10-2023 CNOV Office Visit ([facility] ) LINDSAY ACUNA ([id number]) 1945 F Date Time Provider Department 10/10/23 7:30 AM [facility] [facility] During your visit today, we recorded the following information about you: Temperature Pulse Respiration Blood pressure 97.5 degrees 58/minute 18/minute 128/82 Weight 82.1 kg David Dupree APRN.ROBOTIC MACHINE OPERATOR 10/10/2023 8:11 AM Signed Subjective HPI [...] Rate and (more content not included)... Normal [facility] CNOVon 09-29-2023 CNOV Office Visit (UCWSTR ) LINDSAY ACUNA ([id number]) 1945 F Date Time Provider Department 09/29/23 2:15 PM RADHA LEVINE [facility] During your visit today, we recorded the following information about you: Temperature Pulse Respiration Blood pressure 97.8 degrees 54/minute 18/minute 148/91 Weight 84 kg Radha Levine, [facility] 09/29/2023 6:12 PM Signed This note was created using NoteWriter. Subjective Lindsay Acuna is a 77 year old female. 77 year old female with PMH HTN, hyperlipidemia, CKD, DM, thyroid presents for rash Acute onset of symptoms was 2 days IRON CASTER +bilateral hands, forearms +nape of neck +face +itching +redness Denies pain. Denies fever or chills Denies malaise or fatigue Denies new lotions, soaps, or medicines States that she was working out in the garden the same day the rash erupted. The history is provided by the patient. No shot polisher and inspector was used. Rash This is a new [...] mouth daily before breakfast. blood sugar diagnostic (Mister Mario ULTRA TEST) test strip Test Blood Sugar [...] 30 seconds then expectorate blood sugar diagnostic (CloudamizeTOUCH ULTRA TEST STRIP) test strip Use to [...] state. Hematologi (more content not included)... Normal [facility] Glucose,Bedsideon 04-16-2019 Glucose [Mass/Vol] 161 mg/dL High 70-100 [facility] Comment on above: Result Comment: Test performed by glucose meter. Results may be 10%-15% lower than serum/plasma values. (CLIA ID [id number]) Performed By: #### B GLU #### [address] [address] Surgical Pathologyon 019 Surgical Pathology [id number] [facility] DEPARTMENT OF [facility] PATHOLOGY AND LABORATORY MEDICINE [address] [place] [address] FINAL SURGICAL PATHOLOGY REPORT ___ NAME: LINDSAY ACUNA : 1945 73 Y F BILLING NO.: [id number] LOCATION: 1XEO PROCEDURE 01/09/2019 DATE: SURGEON: SANTIAGO [...] specimen. Angiolymphatic invasion is not identified. Dr. Villgeas has reviewed this case and concurs with [...] characteristics determined by the clinical laboratories of [facility]. They have not been cleared by [...] on decalcified specimens. Professional Performing Location: [address] [address]. DEPARTMENT OF PATHOLOGY AND LABORATORY MEDICINE [place], [place] [address] Normal [facility] .Auto Diffon 08-22-2018 Ammonia mass conc (P) 1.10 10 3/mcL High 0.15-1.00 [facility] ([place]) Comment on above: Performed By: #### B DAYANARA VALVERDE #### [address] [address] Basophils #/vol (Bld) 0.00 10 3/mcL Normal 0.00-0.19 [facility] ([place]) Comment on above: Performed By: #### B MP, GFR #### [address] [address] Basophils/100 WBC (Bld) 0.3 % Normal 0.0-2.5 [facility] ([place]) Comment on above: Performed By: #### B MP, GFR #### [address] [address] Eosinophils #/vol (Bld) 0.00 10 3/mcL Normal 0.00-0.40 [facility] ([place]) Comment on above: Performed By: #### B MP, GFR #### [address] [address] Eosinophils/100 WBC (Bld) 0.2 % Normal 0.0-7.0 [facility] ([place]) Comment on above: Performed By: #### B MP, GFR #### [address] [address] Lymphocytes #/vol (Bld) 2.20 10 3/mcL Normal 0.77-3.85 [facility] ([place]) Comment on above: Performed By: #### B MP, GFR #### [address] [address] Lymphocytes/100 WBC (Bld) 20.5 % Normal 10.0-50.0 [facility] ([place]) Comment on above: Performed By: #### B MP, GFR #### [address] [address] Monocytes/100 WBC (Bld) 10.5 % Normal 1.7-13.0 [facility] ([place]) Comment on above: Performed By: #### B MP, GFR #### [address] [address] Neutrophils/100 WBC (Bld) 68.5 % Normal 37.0-80.0 [facility] ([place]) Comment on above: Performed By: #### B MP, GFR #### [address] [address] .GFRon 08-22-2018 GFR Non- 33 ml/min/1.73sqm Normal [facility] ([place]) Comment on above: Result Comment: GFR [...] Performed By: #### B MP, GFR #### [address] [address] #### DORY LOPEZ, ANEU #### [address] [address] GFR 40 ml/min/1.73sqm Normal [facility] ([place]) Comment on above: Result Comment: GFR [...] Performed By: #### B MP, GFR #### [address] [address] #### CBC, ADIFF, ANEU #### [address] [address] .NEUABSon 08-22-2018 Neutrophils #/vol (Bld) 7.40 10 3/mcL High 2.85-6.16 [facility] ([place]) Comment on above: Performed By: #### B MP, GFR #### [place] [address] BMPon 08-22-2018 Calcium mass conc 8.3 mg/dL Low 8.4-10.2 [facility] ([place]) Comment on above: Performed By: #### B MP, GFR #### [place] [address] #### CBC, ADIFF, ANEU #### [place] [address] Chloride molar conc 104 mmol/L Normal 98-107 [facility] ([place]) Comment on above: Performed By: #### B MP, GFR #### [place] [address] #### CBC, ADIFF, ANEU #### [address] [address] CO2 molar conc 25 mmol/L Normal 23-31 [facility] ([place] Comment on above: Performed By: #### B MP, GFR #### [place] [address] #### CBC, ADIFF, ANEU #### [place] [address] Creatinine mass conc 1.53 mg/dL High 0.55-1.02 [facility] ([place]) Comment on above: Performed By: #### B MP, GFR #### [place] [address] #### CBC, ADIFF, ANEU #### [place] [address]97 Electrolyte Balance 10.0 mEq/L Normal [facility] ([place]) Comment on above: Performed By: #### B MP, GFR #### [place] [address] #### CBC, ADIFF, ANEU #### [address] [address] Glucose mass conc 149 mg/dL High 83-110 [facility] ([place] Comment on above: Performed By: #### B MP, GFR #### [address] [address] #### CBC, ADIFF, ANEU #### [address] [address] Potassium molar conc 4.3 mmol/L Normal 3.5-5.1 [facility] ([place]) Comment on above: Performed By: #### B MP, GFR #### [address] [address] #### CBC, ADIFF, ANEU #### [address] [address] Sodium molar conc 139 mmol/L Normal 136-145 [facility] ([place] Comment on above: Performed By: #### B MP, GFR #### [place] [address] #### CBC, ADIFF, ANEU #### [address] [address] Urea nitrogen mass conc 32 mg/dL High 7-18 [facility] ([place]) Comment on above: Performed By: #### B MP, GFR #### [address] [address] #### CBC, ADIFF, ANEU #### [address] [address] Urea nitrogen/Creatinine mass ratio 21 ratio Normal 7-27 [facility] ([place]) Comment on above: Performed By: #### B MP, GFR #### [address] [address] #### CBC, ADIFF, ANEU #### [address] [address] CBCon 08-22-2018 Erythrocyte distribution width Ratio (RBC) 12.6 % Normal 11.5-14.5 [facility] ([place] Comment on above: Performed By: #### B MP, GFR #### [place] [address] Hematocrit Volume Fraction (Bld) 27.5 % Low 37.0-47.0 [facility] ([place] Comment on above: Performed By: #### B MP, GFR #### [address] [address] Hemoglobin mass conc (Bld) 9.2 G/dL Low 12.0-16.0 [facility] ([place] Comment on above: Performed By: #### B MP, GFR #### [place] [address] MCH Entitic mass (RBC) 30.1 pg Normal 27.0-31.2 [facility] ([place]) Comment on above: Performed By: #### B MP, GFR #### [place] [address] MCHC mass conc (RBC) 33.5 G/dL Normal 33.0-37.0 [facility] ([place]) Comment on above: Performed By: #### B MP, GFR #### [place] [address] MCV Entitic volume (RBC) 89.8 fL Normal 80.0-94.0 [facility] ([place] Comment on above: Performed By: #### B MP, GFR #### [address] [address] Platelet mean volume Entitic volume (Bld) 9.3 fL Normal 7.4-10.4 [facility] ([place] Comment on above: Performed By: #### B MP, GFR #### [address] [address] Platelets #/vol (Bld) 224 10 3/mcL Normal 130-400 [facility] ([place]) Comment on above: Performed By: #### B MP, GFR #### [address] [address] RBC #/vol (Bld) 3.06 10 6/mcL Low 4.20-5.40 [facility] ([place]) Comment on above: Performed By: #### B MP, GFR #### [facility] [address] [place] [address] WBC #/vol (Bld) 10.80 10 3/mcL Normal 4.60-10.80 [facility] ([place]) Comment on above: Performed By: #### B MP, GFR #### [facility] [address] [place] [address] XR KNEE 1 OR 2 VIEWS RIGHTon [...] AM Sign Date: 08/21/2018 9:55:37 AM Normal [facility] ([place]) CT KNEE W/O CONTRAST RIGHTon 08-09-2018 [...] PM Sign Date: 08/09/2018 5:04:12 PM Normal [facility] ([place]) .Auto Diffon 08-06-2018 Ammonia mass conc (P) 0.80 10 3/mcL Normal 0.15-1.00 [facility] ([place]) Comment on above: Performed By: #### C DORY SMITH, ANEU #### [place] [address] #### A1C #### [address] [address] Basophils #/vol (Bld) 0.10 10 3/mcL Normal 0.00-0.19 [facility] ([place]) Comment on above: Performed By: #### C DORY SMITH, ANEU #### [place] [address] #### A1C #### [address] [address] Basophils/100 WBC (Bld) 0.6 % Normal 0.0-2.5 [facility] ([place]) Comment on above: Performed By: #### C DORY SMITH, ANEU #### [place] [address] #### A1C #### [address] [address] Eosinophils #/vol (Bld) 0.20 10 3/mcL Normal 0.00-0.40 [facility] ([place] Comment on above: Performed By: #### C DORY SMITH, ANEU #### [place] [address] #### A1C #### [address] [address] Eosinophils/100 WBC (Bld) 1.7 % Normal 0.0-7.0 [facility] ([place] Comment on above: Performed By: #### C SARAH ADCAROL, ANEU #### [place] [address] #### A1C #### [address] [address] Lymphocytes #/vol (Bld) 1.90 10 3/mcL Normal 0.77-3.85 [facility] ([place]) Comment on above: Performed By: #### C BC ADIFF, ANEU #### [address] [address] #### A1C #### [facility] [address] [place] [address] Lymphocytes/100 WBC (Bld) 20.8 % Normal 10.0-50.0 [facility] ([place] Comment on above: Performed By: #### C BC ADIFF, ANEU #### [address] [address] #### A1C #### [facility] [address] [place] [address] Monocytes/100 WBC (Bld) 9.3 % Normal 1.7-13.0 [facility] ([place]) Comment on above: Performed By: #### C BC ADIFF, ANEU #### [address] [address] #### A1C #### [address] [address] Neutrophils/100 WBC (Bld) 67.6 % Normal 37.0-80.0 [facility] ([place] Comment on above: Performed By: #### C DORY SMITH, ANEU #### [address] [address] #### A1C #### [address] [address] .GFRon 08-06-2018 GFR 51 ml/min/1.73sqm Normal [facility] ([place]) Comment on above: Result Comment: GFR [...] Performed By: #### B MP, GFR #### [address] [address] GFR Non- 42 ml/min/1.73sqm Normal [facility] ([place]) Comment on above: Result Comment: GFR [...] Performed By: #### B MP, GFR #### [place] [address] .NEUABSon 08-06-2018 Neutrophils #/vol (Bld) 6.20 10 3/mcL High 2.85-6.16 [facility] ([place]) Comment on above: Performed By: #### DORY SOTO, ANEU #### [address] [address] #### A1C #### [place] [address] A1Con 08-06-2018 Hemoglobin A1c/Hemoglobin.total mass fraction (Bld) 7.9 % High 4.5-6.2 [facility] ([place]) Comment on above: Performed By: #### C DORY SMITH, ANEU #### [address] [address] #### A1C #### [address] [address] BMPon 08-06-2018 Calcium mass conc 9.2 mg/dL Normal 8.4-10.2 [facility] ([place]) Comment on above: Performed By: #### B MP, GFR #### [address] [address] Chloride molar conc 105 mmol/L Normal 98-107 [facility] ([place]) Comment on above: Performed By: #### B MP, GFR #### [address] [address] CO2 molar conc 27 mmol/L Normal 23-31 [facility] ([place]) Comment on above: Performed By: #### B MP, GFR #### [address] [address] Creatinine mass conc 1.25 mg/dL High 0.55-1.02 [facility] ([place]) Comment on above: Performed By: #### B MP, GFR #### [address] [address] Electrolyte Balance 11.0 mEq/L Normal [facility] ([place]) Comment on above: Performed By: #### B MP, GFR #### [place] [address] Glucose mass conc 70 mg/dL Low 83-110 [facility] ([place]) Comment on above: Performed By: #### B MP, GFR #### [place] [id number] Potassium molar conc 5.0 mmol/L Normal 3.5-5.1 [facility] ([place] Comment on above: Performed By: #### B MP, GFR #### [place] [id number] Sodium molar conc 143 mmol/L Normal 136-145 [facility] ([place] Comment on above: Performed By: #### B MP, GFR #### [address] [address] Urea nitrogen mass conc 26 mg/dL High 7-18 [facility] ([place]) Comment on above: Performed By: #### B MP, GFR #### [address] [address] Urea nitrogen/Creatinine mass ratio 21 ratio Normal 7-27 [facility] ([place]) Comment on above: Performed By: #### B MP, GFR #### [address] [address] CBCon 08-06-2018 Erythrocyte distribution width Ratio (RBC) 12.2 % Normal 11.5-14.5 [facility] ([place]) Comment on above: Performed By: #### C DORY SMITH, ANEU #### [address] [address] #### A1C #### [place] [address] Hematocrit Volume Fraction (Bld) 34.6 % Low 37.0-47.0 [facility] ([place]) Comment on above: Performed By: #### C DORY SMITH, ANEU #### [address] [address] #### A1C #### [place] [address] Hemoglobin mass conc (Bld) 11.7 G/dL Low 12.0-16.0 [facility] ([place]) Comment on above: Performed By: #### C DORY SMITH, ANEU #### [address] [address] #### A1C #### [place] [address] MCH Entitic mass (RBC) 30.6 pg Normal 27.0-31.2 [facility] ([place]) Comment on above: Performed By: #### C DORY SMITH, ANEU #### [place] [address] #### A1C #### [place] [address] MCHC mass conc (RBC) 33.7 G/dL Normal 33.0-37.0 [facility] ([place]) Comment on above: Performed By: #### C DORY SMITH, ANEU #### [address] [address] #### A1C #### [place] [address] MCV Entitic volume (RBC) 90.9 fL Normal 80.0-94.0 [facility] ([place] Comment on above: Performed By: #### C BC, ADIFF, ANEU #### [address] [address] #### A1C #### [address] [address] Platelet mean volume Entitic volume (Bld) 8.8 fL Normal 7.4-10.4 [facility] ([place] Comment on above: Performed By: #### C BC, ADIFF, ANEU #### [address] [address] #### A1C #### [address] [address] Platelets #/vol (Bld) 355 10 3/mcL Normal 130-400 [facility] ([place]) Comment on above: Performed By: #### C BC, ADIFF, ANEU #### [address] [address] #### A1C #### [place] [address] RBC #/vol (Bld) 3.81 10 6/mcL Low 4.20-5.40 [facility] ([place]) Comment on above: Performed By: #### C BC, ADIFF, ANEU #### [address] [address] #### A1C #### [place] [address] WBC #/vol (Bld) 9.20 10 3/mcL Normal 4.60-10.80 [facility] ([place] Comment on above: Performed By: #### C BC, ADIFF, ANEU #### [address] [address] #### A1C #### [place] [address] Vital Signs Date Time Vital Sign Value Performing Clinician Facility 10-02-2024 09:0400 Body height 167.[address] Kameron Caruso MD Work Phone: [facility] 10-02-2024 09:21-0400 Diastolic blood pressure 71 mm[Hg] Dr. Kameron Caruso MD Work Phone: [facility] 10-02-2024 09:21-0400 Heart rate 77 /min Dr. Kameron Caruso MD Work Phone: [facility] 10-02-2024 09:21-0400 Respiratory rate 16 /min Dr. Kameron Caruso MD Work Phone: [facility] 10-02-2024 09:21-0400 Systolic blood pressure 111 mm[Hg] Dr. Kameron Caruso MD Work Phone: [facility] 09-09-2024 09:02-0400 Heart rate 100 /min SILVINO SCHEATZLE DO [facility] 09-09-2024 07:58-0400 Blood Pressure Cuff Size SILVINO SCHEATZLE DO [facility] 09-09-2024 07:58-0400 Blood Pressure Location SILVINO SCHEATZLE DO [facility] 09-09-2024 07:58-0400 Blood Pressure Method SILVINO SCHEATZLE DO [facility] 09-09-2024 07:58-0400 Body temperature 96.8 [degF] SILVINO SCHEATZLE DO [facility] 09-09-2024 07:58-0400 Diastolic Blood Pressure Non-Invasive 78 mm[Hg] SILVINO SCHEATZLE DO [facility] 09-09-2024 07:58-0400 Heart rate 110 /min SILVINO SCHEATZLE DO [facility] 09-09-2024 07:58-0400 Reason For Taking VItal Signs SILVINO SCHEATZLE DO [facility] 09-09-2024 07:58-0400 Respiratory rate 16 /min SILVINO SCHEATZLE DO [facility] 09-09-2024 07:58-0400 Systolic Blood Pressure Non-Invasive 122 mm[Hg] SILVINO CIDATZLE DO [facility] 09-09-2024 02:45-0400 Body temperature 97.7 [degF] SILVINO CIDATZLE DO [facility] 09-09-2024 02:45-0400 Diastolic Blood Pressure Non-Invasive 60 mm[Hg] SILVINO CIDATZLE DO [facility] 09-09-2024 02:45-0400 Heart rate 92 /min SILVINO CIDATZLE DO [facility] 09-09-2024 02:45-0400 Respiratory rate 16 /min SILVINO CIDATZLE DO [facility] 09-09-2024 02:45-0400 Systolic Blood Pressure Non-Invasive 108 mm[Hg] SILVINO CIDATZLE DO [facility] 09-08-2024 22:28-0400 Blood Pressure Cuff Size SILVINO CIDATZLE DO [facility] 09-08-2024 22:28-0400 Blood Pressure Location SILVINO CIDATZLE DO [facility] 09-08-2024 22:28-0400 Blood Pressure Method SILVINO CIDATZLE DO [facility] 09-08-2024 22:28-0400 Body temperature 97.88 [degF] SILVINO CIDATZLE DO [facility] 09-08-2024 22:28-0400 Diastolic Blood Pressure Non-Invasive 54 mm[Hg] SILVINO PALAKATZLE DO [facility] 09-08-2024 22:28-0400 Heart rate 92 /min SILVINO CIDATZLE DO [facility] 09-08-2024 22:28-0400 Reason For Taking VItal Signs SILVINO CIDATZLE DO [facility] 09-08-2024 22:28-0400 Respiratory rate 16 /min SILVINO CIDATZLE DO [facility] 09-08-2024 22:28-0400 Systolic Blood Pressure Non-Invasive 118 mm[Hg] SILVINO CIDATZLE DO [facility] 09-08-2024 18:21-0400 Heart rate 90 /min SILVINO CIDATZLE DO [facility] 09-08-2024 09:08-0400 Blood Pressure Cuff Size SILVINO CIDATZLE DO [facility] 09-08-2024 09:08-0400 Blood Pressure Location SILVINO CIDATZLE DO [facility] 09-08-2024 09:08-0400 Blood Pressure Method SILVINO CIDATZLE DO [facility] 09-08-2024 09:08-0400 Heart rate 114 /min SILVINO CIDATZLE DO [facility] 09-08-2024 09:08-0400 Reason For Taking VItal Signs SILVINO PALAKATZLE DO [facility] 09-04-2024 10:54-0400 Body temperature 96.62 [degF] SILVINO CIDATZLE DO [facility] 09-03-2024 00:26-0400 Body temperature 97.34 [degF] SILVINO CIDATZLE DO [facility] 08-30-2024 22:54-0400 Body temperature 98.06 [degF] SILVINO CIDATZLE DO [facility] 08-26-2024 10:36-0400 Body weight 76 kg SILVINO RADERLE DO [facility] 08-19-2024 06:00-0400 Body weight 75.3 kg SILVINO CIDATZSHITAL DO [facility] 08-15-2024 14:27-0400 Body height 170.2 cm SILVINO EPARL DO [facility] 08-15-2024 14:27-0400 Body weight 75.4 kg SILVINO PEARL DO [facility] 08-15-2024 14:27-0400 Body weight 26.03 kg/m2 SILVINO PEARL DO [facility] 08-15-2024 09:02-0400 Diastolic blood pressure 69 mm[Hg] Prema Ramos MD Work Phone: [facility] 08-15-2024 09:02-0400 Systolic blood pressure 128 mm[Hg] Prema Ramos MD Work Phone: [facility] 08-15-2024 07:28-0400 Heart rate 86 /min Prema Ramos MD Work Phone: [facility] 08-15-2024 07:18-0400 Body temperature 97.3 [degF] Prema Ramos MD Work Phone: [facility] 08-15-2024 07:18-0400 Respiratory rate 23 /min Prema Ramos MD Work Phone: [facility] 08-15-2024 07:18-0400 SaO2% (BldA) [Mass fraction] 95 % Prema Ramos MD Work Phone: [facility] 08-05-2024 08:00-0400 Body height 170.2 cm Prema Ramos MD Work Phone: 5(002)123-335893 [address] 08-05-2024 08:00-0400 Body mass index (BMI) [Ratio] 26.94 kg/m2 Prema Ramos MD Work Phone: 1(768)627-575493 [address] 08-05-2024 08:00-0400 Body weight 78.02 kg Prema Ramos MD Work Phone: 3(405)852-104142 [place] [address] 08-02-2024 13:52-0400 Body temperature 98 [degF] Dr. Kameron Caruso MD Work Phone: 7(976)198-247981 [place] [address] 08-02-2024 13:52-0400 Diastolic blood pressure 91 mm[Hg] Dr. Kameron Caruso MD Work Phone: 0(653)400-822381 [place] [address] 08-02-2024 13:52-0400 Heart rate 109 /min Dr. Kameron Caruso MD Work Phone: 1(281)421-385481 [place] [address] 08-02-2024 13:52-0400 Respiratory rate 16 /min Dr. Kameron Caruso MD Work Phone: 1(331)551-965781 [place] [address] 08-02-2024 13:52-0400 SaO2% (BldA) [Mass fraction] 98 % Dr. Kameron Caruso MD Work Phone: 4(726)644-482481 [place] [address] 08-02-2024 13:52-0400 Systolic blood pressure 153 mm[Hg] Dr. Kameron Caruso MD Work Phone: 2(454)[phone] [place] [address] 08-02-2024 12:46-0400 Body height 167.[address] Kameron Caruso MD Work Phone: 2(920)888-359481 [place] [address] 08-02-2024 12:46-0400 Body mass index (BMI) [Ratio] 26.6 kg/m2 Dr. Kameron Caruso MD Work Phone: 5(221)794-097081 [place] [address] 08-02-2024 12:46-0400 Body weight [address] Kameron Caruso MD Work Phone: 1(716)265-989381 [place] [address] 06-26-2024 09:39-0500 Body mass index (BMI) [Ratio] 27.25 kg/m2 Emma Canaleshofreddie BRIDGE IRONWORKER.ROBOTIC MACHINE OPERATOR Work Phone: [facility] 06-26-2024 09:39-0500 Body weight 78.93 kg Emma Glasgow BRIDGE IRONWORKER.ROBOTIC MACHINE OPERATOR Work Phone: [facility] 06-26-2024 09:39-0500 Diastolic blood pressure 88 mm[Hg] Emma Canaleshof BRIDGE IRONWORKER.ROBOTIC MACHINE OPERATOR Work Phone: [facility] 06-26-2024 09:39-0500 Heart rate 93 /min Emma Canaleshof BRIDGE IRONWORKER.ROBOTIC MACHINE OPERATOR Work Phone: [facility] 06-26-2024 09:39-0500 Respiratory rate 16 /min Emma Gonzalesf BRIDGE IRONWORKER.ROBOTIC MACHINE OPERATOR Work Phone: [facility] 06-26-2024 09:39-0500 SaO2% (BldA) [Mass fraction] 98 % Emma Glasgow BRIDGE IRONWORKER.ROBOTIC MACHINE OPERATOR Work Phone: [facility] 06-26-2024 09:39-0500 Systolic blood pressure 144 mm[Hg] Emma Canaleshof BRIDGE IRONWORKER.ROBOTIC MACHINE OPERATOR Work Phone: [facility] 05-31-2024 08:56-0500 Diastolic blood pressure 84 mm[Hg] Kameron Caruso MD Work Phone: [facility] 05-31-2024 08:56-0500 Systolic blood pressure 136 mm[Hg] Kameron Caruso MD Work Phone: [facility] 05-31-2024 08:47-0500 Body mass index (BMI) [Ratio] 27.28 kg/m2 Kameron Caruso MD Work Phone: [facility] 05-31-2024 08:47-0500 Body weight 79 kg Kameron Caruso MD Work Phone: [facility] 05-31-2024 08:47-0500 Heart rate 100 /min Kameron Caruso MD Work Phone: [facility] 05-31-2024 08:47-0500 Respiratory rate 18 /min Kameron Caruso MD Work Phone: [facility] 11-28-2023 09:42-0400 Diastolic blood pressure 78 mm[Hg] Kameron Caruso MD Work Phone: [facility] 11-28-2023 09:42-0400 Systolic blood pressure 142 mm[Hg] Kameron Caruso MD Work Phone: [facility] 11-28-2023 09:41-0400 Body mass index (BMI) [Ratio] 27.82 kg/m2 Kameron Caruso MD Work Phone: [facility] 11-28-2023 09:41-0400 Body weight 80.56 kg Kameron Caruso MD Work Phone: [facility] 11-28-2023 09:41-0400 Heart rate 68 /min Kameron Caruso MD Work Phone: [facility] 11-28-2023 09:41-0400 Respiratory rate 18 /min Kameron Caruso MD Work Phone: [facility] 10-10-2023 07:31-0400 Body mass index (BMI) [Ratio] 28.35 kg/m2 David Dupree APRN.ROBOTIC MACHINE OPERATOR Work Phone: [facility] 10-10-2023 07:31-0400 Body temperature 97.5 [degF] David Dupree BRIDGE IRONWORKER.ROBOTIC MACHINE OPERATOR Work Phone: [facility] 10-10-2023 07:31-0400 Body weight 82.1 kg David Dupree BRIDGE IRONWORKER.ROBOTIC MACHINE OPERATOR [facility] [place] 10-10-2023 07:31-0400 Diastolic blood pressure 82 mm[Hg] David Dupree BRIDGE IRONWORKER.ROBOTIC MACHINE OPERATOR Work Phone: [facility] [place] 10-10-2023 07:31-0400 Heart rate 58 /min David Dupree BRIDGE IRONWORKER.ROBOTIC MACHINE OPERATOR Work Phone: [facility] [place] 05-28-2024 07:31-0400 Respiratory rate 18 /min David Pakbury BRIDGE IRONWORKER.ROBOTIC MACHINE OPERATOR Work Phone: [facility] [place] 10-10-2023 07:31-0400 SaO2% (BldA) [Mass fraction] 100 % David Pakbury BRIDGE IRONWORKER.ROBOTIC MACHINE OPERATOR Work Phone: [facility] [place] 10-10-2023 07:31-0400 Systolic blood pressure 128 mm[Hg] David Pakbury BRIDGE IRONWORKER.ROBOTIC MACHINE OPERATOR Work Phone: [facility] [place] 09-29-2023 14:14-0400 Body mass index (BMI) [Ratio] 29 kg/m2 Radha Levine BRIDGE IRONWORKER.ROBOTIC MACHINE OPERATOR Work Phone: [facility] [place] 09-29-2023 14:14-0400 Body temperature 97.81 [degF] Radha Levine BRIDGE IRONWORKER.ROBOTIC MACHINE OPERATOR Work Phone: [facility] [place] 09-29-2023 14:14-0400 Body weight 84 kg Radha Levine BRIDGE IRONWORKER.ROBOTIC MACHINE OPERATOR Work Phone: [facility] [place] 09-29-2023 14:14-0400 Diastolic blood pressure 91 mm[Hg] Radha Levine BRIDGE IRONWORKER.ROBOTIC MACHINE OPERATOR Work Phone: [facility] [place] 09-29-2023 14:14-0400 Heart rate 54 /min Radha Levine BRIDGE IRONWORKER.ROBOTIC MACHINE OPERATOR Work Phone: [facility] [place] 09-29-2023 14:14-0400 Respiratory rate 18 /min Radha Levine BRIDGE IRONWORKER.ROBOTIC MACHINE OPERATOR Work Phone: [facility] [place] 09-29-2023 14:14-0400 SaO2% (BldA) [Mass fraction] 99 % Radha Levine BRIDGE IRONWORKER.ROBOTIC MACHINE OPERATOR Work Phone: [facility] [place] 09-29-2023 14:14-0400 Systolic blood pressure 148 mm[Hg] Radha Levine BRIDGE IRONWORKER.ROBOTIC MACHINE OPERATOR Work Phone: [facility] [place] 05-27-2022 09:42-0500 Body weight 83.83 kg Kameron Caruso MD Work Phone: [facility] [place] 05-27-2022 09:42-0500 Diastolic blood pressure 84 mm[Hg] Kameron Caruso MD Work Phone: [facility] [place] 05-27-2022 09:42-0500 Heart rate 68 /min Kameron Caruso MD Work Phone: [facility] [place] 05-27-2022 09:42-0500 Respiratory rate 16 /min Kameron Caruso MD Work Phone: [facility] [place] 05-27-2022 09:42-0500 Systolic blood pressure 136 mm[Hg] Kameron Caruso MD Work Phone: [facility] [place] 03-02-2022 10:52-0400 Diastolic blood pressure 76 mm[Hg] Emma Tannhof BRIDGE IRONWORKER.ROBOTIC MACHINE OPERATOR Work Phone: [facility] [place] 03-02-2022 10:52-0400 Heart rate 92 /min Emma Tannhof BRIDGE IRONWORKER.ROBOTIC MACHINE OPERATOR Work Phone: [facility] [place] 03-02-2022 10:52-0400 Respiratory rate 18 /min Emma Tannhof BRIDGE IRONWORKER.ROBOTIC MACHINE OPERATOR Work Phone: [facility] [place] 03-02-2022 10:52-0400 Systolic blood pressure 140 mm[Hg] Emma Tannhof BRIDGE IRONWORKER.ROBOTIC MACHINE OPERATOR Work Phone: [facility] [place] 11-23-2021 09:39-0400 Body weight 83.1 kg Kameron Caruso MD Work Phone: [facility] [place] 11-23-2021 09:39-0400 Diastolic blood pressure 80 mm[Hg] Kameron Caruso MD Work Phone: [facility] [place] 11-23-2021 09:39-0400 Heart rate 84 /min Kameron Caruso MD Work Phone: [facility] [place] 11-23-2021 09:39-0400 Respiratory rate 16 /min Kameron Caruso MD Work Phone: [facility] [place] 11-23-2021 09:39-0400 Systolic blood pressure 138 mm[Hg] Kameron Caruso MD Work Phone: [facility] [place] 10-16-2019 10:09-0400 BP Diastolic 72 mm[Hg] Santiago Miller [facility] [place] , [place] 10-16-2019 10:09-0400 BP Systolic 144 mm[Hg] Santiago Miller [facility] [place] [facility] [place] 10-16-2019 10:09-0400 Pulse (Heart Rate) 62 /min Santiago Miller [facility] [place], [place] 10-16-2019 10:09-0400 Pulse Oximetry 98 % Santiago Miller [facility] [place] , [place] 10-16-2019 10:09-0400 Respiratory Rate 18 /min [facility] [place] 10-16-2019 09:15-0400 BMI (Body Mass Index) 29.44 kg/m2 Santiago Miller [facility], [place] 10-16-2019 09:15-0400 Body Temperature 97.81 [degF] Santiago Miller [facility] [place] 10-16-2019 09:15-0400 Body weight 85.28 kg Santiago Miller [facility] , [place] 10-16-2019 09:15-0400 Height 170.2 cm Santiago Miller [facility] [place] 01-09-2019 12:06-0400 BP Diastolic 73 mm[Hg] Santiago Miller [facility] [place] , [place] 01-09-2019 12:06-0400 BP Systolic 121 mm[Hg] Santiago Miller [facility] [place] 01-09-2019 11:50-0400 Pulse (Heart Rate) 64 /min Santiago Miller [facility] 01-09-2019 11:50-0400 Pulse Oximetry 100 % Santiago Miller [facility] [place] 01-09-2019 11:50-0400 Respiratory Rate 18 /min Santiago Miller [facility] [place] 01-09-2019 10:28-0400 BMI (Body Mass Index) 28.82 kg/m2 Santiago Miller [facility], [place] 01-09-2019 10:28-0400 Body weight 83.46 kg Santiago Miller [facility] [place] 01-09-2019 10:28-0400 Height 170.2 cm Santiago Miller [facility] [place] 01-09-2019 10:27-0400 Body Temperature 97.5 [degF] [facility] [place] Encounters Encounter Date Encounter Type Care Provider Facility Start: 03-25-2025 ambulatory Efewongbe Oleghe OLS Fa cility:[facility] Start: 03-18-2025 ambulatory Efewongbe Oleghe OLS Fa cility:[facility] Start: 03-11-2025 ambulatory Efewongbe Oleghe OLS Fa cility:[facility] Start: 03-04-2025 ambulatory Efewongbe Oleghe OLS Fa cility:[facility] Start: 02-25-2025 ambulatory Efewongbe Oleghe OLS Fa cility:[facility] Start: 02-18-2025 ambulatory Efewongbe Oleghe OLS Fa cility:[facility] Start: 02-18-2025 Safia Martin - [place] Start: 02-11-2025 ambulatory Efewongbe Oleghe OLS Fa cility:[facility] Start: 02-11-2025 Safia Martin - [place] Start: 02-04-2025 ambulatory Efewongbe Oleghe OLS Fa cility:[facility] Start: 02-04-2025 Safia Martin - [place] Start: 01-28-2025 ambulatory Efewongbe Oleghe OLS Fa cility:[facility] Start: 01-28-2025 Safia Martin - [place] Start: 01-21-2025 ambulatory Efewongbe Oleghe OLS Fa cility:[facility] Start: 01-21-2025 Safia Martin - [place] Start: 01-14-2025 ambulatory Efewongbe Oleghe OLS Fa cility:[facility] Start: 01-14-2025 Safia Torres Start: 01-07-2025 End: 01-07-[address] Kameron Caruso MD Work Phone: -Veronica Torres Start: 01-07-2025 End: 01-07-2025 Safia Torres Start: 01-07-2025 End: 01-07-2025 ambulatory Kameron Caruso Facility:[facility] Start: 12-31-2024 End: 12-31-[address] Kameron Caruso MD Work Phone: [facility] Start: 12-31-2024 End: 12-31-2024 Dr. Safia Ruelas MD -[facility] Work Phone: Start: 12-24-2024 ambulatory Kameron Caruso Facilit y:[facility] Start: 12-24-2024 Safia SOMMER L - [place] Start: 12-17-2024 ambulatory Efewongbe Oleghe OLS Fa cility:[facility] Start: 12-17-2024 Safia Martin - [place] Start: 12-10-2024 ambulatory Efewongbe Oleghe OLS Fa cility:[facility] Start: 12-10-2024 Safia SOMMER L - [place] Start: 12-03-2024 ambulatory Efewongbe Oleghe OLS Fa cility:[facility] Start: 12-03-2024 Safia SOMMER L - [place] Start: 11-28-2024 End: 11-28-[address] Kameron Caruso MD Work Phone: [facility] Start: 11-28-2024 End: 11-28-2024 Bret WILKERSON -[facility] Work Phone: Start: 11-26-2024 ambulatory Efewongbe Oleghe OLS Fa cility:[facility] Start: 11-26-2024 Registered Referred Safia Torres Start: 11-26-2024 Safia Martin - [place] Start: 11-25-2024 End: 11-25-[address] Kameron Caruso MD Work Phone: Joseph Torres Start: 11-25-2024 Registered Referred Safia Torres Start: 11-25-2024 End: 11-25-2024 Safia Torres Start: 11-25-2024 End: 11-25-2024 ambulatory Efewongbe Olebonie OLS Facility:[facility] Start: 11-20-2024 End: 11-20-[address] Kameron Caruso MD Work Phone: [facility] Start: 11-20-2024 End: 11-20-2024 Bret Snyder MaurisioC -[facility] Work Phone: Start: 11-19-2024 ambulatory Efewongbe Olebonie OLS Fa cility:[facility] Start: 11-19-2024 Registered Referred Safia Torres Start: 11-19-2024 Safia Torres Start: 11-12-2024 End: 11-12-[address] Kameron Caruso MD Work Phone: -GILMA Torres Start: 11-12-2024 Registered Referred Safia Torres Start: 11-12-2024 End: 11-12-2024 Safia Torres Start: 11-12-2024 End: 11-12-2024 ambulatory Efewongbe Olebonie OLS Facility:[facility] Start: 11-05-2024 ambulatory Efewongbe Enricoe OLS Fa cility:[facility] Start: 11-05-2024 Registered Referred Safia Torres Start: 11-05-2024 Safia Torres Start: 10-30-2024 End: 10-30-[address] Kameron Caruso MD Work Phone: [facility] Start: 10-30-2024 End: 10-30-2024 Patient encounter procedure Bret Snyder BUTTON RECLAIMER- -[facility] Work Phone: Start: 10-30-2024 End: 10-30-2024 Bret Snyder BUTTON RECLAIMER-[facility] Work Phone: Start: 10-29-2024 End: 10-29-[address] Safia Ruelas MD -[facility] Work Phone: Start: 10-29-2024 End: 10-29-[address] Kameron Caruso MD Work Phone: [facility] Start: 10-29-2024 Registered Referred Safia Torres Start: 10-29-2024 End: 10-29-2024 Dr. Safia Ruelas MD -[facility] Work Phone: Start: 10-29-2024 End: 10-29-2024 ambulatory Safia VARGAS Facility:[facility] Start: 10-23-2024 ambulatory Safia Ruelas OLS Fa cility:[facility] Start: 10-23-2024 Registered Referred Safia Torres Start: 10-23-2024 Safia Torres Start: 10-22-2024 End: 10-22-2024 Patient encounter procedure Bret Snyder [facility] Work Phone: Start: 10-22-2024 End: 10-22-[address] Kameron Caruso MD Work Phone: [facility] Start: 10-22-2024 Registered Referred Safia Torres Start: 10-22-2024 End: 10-22-2024 Bret Snyder NP-[facility] Work Phone: Start: 10-15-2024 ambulatory Safia Ruelas OLS Fa cility:[facility] Start: 10-15-2024 Registered Referred Safia Torres Start: 10-15-2024 Safia Torres Start: 10-09-2024 End: 10-09-[address] Kameron Caruso MD Work Phone: [facility] Start: 10-09-2024 End: 10-09-2024 Patient encounter procedure Bret Snyder BUTTON RECLAIMER- -[facility] Work Phone: Start: 10-09-2024 End: 10-09-2024 Bret Snyder [facility] Work Phone: Start: 10-08-2024 ambulatory Efsherry Ruelas OLS Fa cility:[facility] Start: 10-08-2024 Registered Referred Safia Torres Start: 10-08-2024 Safia Torres Start: 10-02-2024 End: 10-02-[address] Mj Benavides MD -[facility] Work Phone: Start: 10-02-2024 End: 10-02-2024 Dr. Mj Benavides MD -[facility] Work Phone: Start: 10-02-2024 End: 10-02-[address] Kameron Caruso MD Work Phone: [facility] Work Phone: Start: 10-01-2024 ambulatory Efewjosé antonio Ruelas OLS Fa cility:[facility] Start: 10-01-2024 Registered Referred Safia Torres Start: 10-01-2024 Safia Torres Start: 09-29-2024 ambulatory Efewongbe Enricoe OLS Fa cility:[facility] Start: 09-29-2024 Registered Referred Safia Torres Start: 09-29-2024 Safia Torres Start: 09-24-2024 ambulatory Safia Ruelas OLS Fa cility:[facility] Start: 09-24-2024 Registered Referred Safia Torres Start: 09-24-2024 Safia Torres Start: 09-17-2024 ambulatory Safia Ruelas OLS Fa cility:[facility] Start: 09-17-2024 Registered Referred Safia Torres Start: 09-17-2024 Safia Torres Start: 09-11-2024 End: 09-11-2024 ambulatory Bret Snyder BUTTON RECLAIMER Facility:[facility] Start: 09-11-2024 End: 09-11-2024 Patient encounter procedure Bret Snyder BUTTON RECLAIMER-C -[facility] Work Phone: Start: 09-11-2024 End: 09-11-2024 Bret Snyder BUTTON RECLAIMER-C -[facility] Work Phone: Start: 09-10-2024 End: 09-10-[address] Safia Ruelas MD -[facility] Work Phone: Start: 09-10-2024 End: 09-10-2024 ambulatory Kameron Caruso Facility:[facility] Start: 09-10-2024 Registered Referred Safia Torres Start: 09-10-2024 End: 09-10-2024 Dr. Safia Ruelas MD -[facility] Work Phone: Start: 08-30-2024 End: 08-30-2024 Telephone encounter Kameron Caruso MD Work Phone: [facility] Comment on above: Tyler Chucho requesti ng verbal agree to follow Start: 08-15-2024 End: 09-09-2024 Evaluation and management of inpatient SILVINO CIDBEULAH DO [facility] Start: 08-09-2024 Evaluation and manag ement of inpatient KAMERON CARUSO Facility:[facility] Start: 08-06-2024 Evaluation and manag ement of inpatient [facility] Start: 08-02-2024 End: 08-02-2024 ambulatory [facility] Facility:[facility] Start: 08-02-2024 End: 08-15-2024 Evaluation and [...] encounter Kameron Caruso MD Work Phone: [facility] Comment on above: medication not on cu rrent med list Start: 06-26-2024 End: 06-26-2024 Office outpatient visit 25 minutes Emma Glasgow APRN.CNP Work Phone: [facility] [place] Comment on above: Atrial fibrillation, unspecified type (HCC) (Primary Dx); Hypothyroidism, unspecified type; Need for malaria prophylaxis Start: 06-26-2024 End: 06-26-2024 ambulatory EMMA GLASGOW Facility:[facility] Start: 06-25-2024 ambulatory KAMERON CARUSO Facil ity:[facility] Start: 06-24-2024 End: 06-24-2024 Telephone encounter Kameron Caruso MD Work Phone: [facility] [place] Comment on above: Patient Update Start: 06-11-2024 End: 06-11-2024 Telephone encounter Kameron Caruso MD Work Phone: [facility] [place] Comment on above: Results Start: 06-11-2024 End: 06-11-2024 ambulatory [facility] Facility:[facility] Start: 06-10-2024 End: 06-11-2024 Telephone encounter Kameron Caruso MD Work Phone: [facility] [place] Comment on above: Medication Problem Start: 05-31-2024 End: 05-31-2024 ambulatory [facility] Facility:[facility] Start: 05-31-2024 End: 05-31-2024 Patient encounter procedure Kameron Caruso MD Work Phone: [facility] [place] Comment on above: Essential [...] unspecified type (HCC) Start: 05-23-2024 End: 05-23-2024 [facility] Facility:[facility] Start: 11-28-2023 End: 11-28-2023 [facility] Facility:[facility] Start: 11-28-2023 End: 11-28-2023 Patient encounter procedure Kameron Caruso MD Work Phone: [facility] [place] Comment on above: Type [...] of insulin (HCC) Start: 11-27-2023 End: 11-27-2023 [facility] Facility:[facility] Start: 10-10-2023 End: 10-10-2023 ambulatory KAMERON CARUSO Facility:[facility] Start: 10-10-2023 End: 10-10-2023 Office outpatient visit 25 minutes David Joon BRIDGE IRONWORKER.ROBOTIC MACHINE OPERATOR Work Phone: [facility] Comment on above: Rash (Primary Dx) Start: 09-29-2023 End: 09-29-2023 ambulatory KAMERON CARUSO Facility:[facility] Start: 09-29-2023 End: 09-29-2023 Patient encounter procedure Radha Levine BRIDGE IRONWORKER.ROBOTIC MACHINE OPERATOR Work Phone: [facility] Comment on above: Allergic contact lexi matitis due to plant (Primary Dx) Start: 09-19-2023 Refill Kameron nixon MD Work Phone: [facility] [place] Comment on above: Refill Request Start: 04-08-2023 Telephone encounter Kameron bucio MD Work Phone: [address] [place] [address] Comment on above: Refill Request Start: 11-25-2022 Telephone encounter Kameron bucio MD Work Phone: [facility] [place] Comment on above: Patient Question Start: 05-27-2022 End: 05-27-2022 Patient encounter procedure Kameron Caruso MD Work Phone: [facility] [place] Comment on above: Essential hypertensi on, benign (Primary Dx); Hypothyroidism, unspecified type; Type 2 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, without long-term current use of insulin (HCC); Hyperlipidemia, unspecified hyperlipidemia type; Chronic kidney disease, stage 3a (HCC); Edema of left lower leg; Wellness examination Start: 05-27-2022 End: 05-27-2022 Patient encounter status Kameron Caruso MD Work Phone: [facility] [place] Start: 04-11-2022 Refill Kameron nixon MD Work Phone: [facility] Comment on above: Refill Request Start: 03-02-2022 ambulatory Kameron nixon MD Work Phone: [facility] [place] Comment on above: Back Pain Start: 03-02-2022 End: 03-02-2022 Patient encounter procedure Emma Glasgow BRIDGE IRONWORKER.ROBOTIC MACHINE OPERATOR Work Phone: [facility] [place] Comment on above: Acute midline low ba ck pain without sciatica (Primary Dx) Start: 01-11-2022 Refill Mj ORTIZ RN.ROBOTIC MACHINE OPERATOR Work Phone: [facility] [place] Comment on above: Refill Request Start: 01-11-2022 Refill Kameron nixon MD Work Phone: [facility] [place] Comment on above: Refill Request Start: 12-16-2021 Telephone encounter Kameron bucio MD Work Phone: [facility] [place] Comment on above: Diabetic Testing Sup plies Start: 11-23-2021 End: 11-23-2021 Refill Kameron Crauso MD Work Phone: [facility] [place] Comment on above: 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, unspecified CKD stage, unspecified whether prison insulin use (HCC) (Primary Dx); Essential hypertension, benign; Hyperlipidemia, unspecified hyperlipidemia type; Stage 3b chronic kidney disease (HCC); Hypothyroidism, unspecified type; Memory loss Start: 10-14-2021 Refill Kameron nixon MD Work Phone: [facility] [place] Comment on above: Refill Request Start: 09-27-2021 Telephone encounter Kameron bucio MD Work Phone: [facility] [place] Comment on above: information requeste d/rxs needed Start: 09-13-2021 Telephone encounter Kameron bucio MD Work Phone: [facility] [place] Comment on above: Patient Question; [...] stick/tabl et reagent auto microscopy Dr. Kameron aCruso MD Work Phone: Start: 10-22-2024 Blood count [...] 08-15-2024 Assay of magnesium Abram rin Nadine BRIDGE IRONWORKER-ROBOTIC MACHINE OPERATOR Work Phone: Start: 08-15-2024 Glucose measurement, blood Christos Gibson MD Work Phone: Start: 08-14-2024 Glucose measurement, blood Christos Gibson MD Work Phone: Start: 08-14-2024 Glucose measurement, blood Chrsitos Gibson MD Work Phone: Start: 08-14-2024 Glucose measurement, blood Christos Gibson MD Work Phone: Start: 08-14-2024 Assay of magnesium Abdoule rin M Nadine BRIDGE IRONWORKER-ROBOTIC MACHINE OPERATOR Work Phone: Start: 08-13-2024 Glucose measurement, blood Christos Gibson MD Work Phone: Start: 08-13-2024 Glucose measurement, blood Christos Gibson MD Work Phone: Start: 08-13-2024 Glucose measurement, blood Christos Gibson MD Work Phone: Start: 08-13-2024 Glucose measurement, blood Felicity Castellano MD Work Phone: Start: 08-13-2024 Assay of magnesium Nase rin M Nadine BRIDGE IRONWORKER-ROBOTIC MACHINE OPERATOR Work Phone: Start: 08-13-2024 Glucose measurement, blood Felicity Castellano MD Work Phone: Start: 08-12-2024 Glucose measurement, blood Felicity Castellano MD Work Phone: Start: 08-12-2024 Glucose measurement, blood Felicity Castellano MD Work Phone: Start: 08-12-2024 Glucose measurement, blood Felicity Castellano MD Work Phone: Start: 08-12-2024 Assay of magnesium Nase rin M Nadine BRIDGE IRONWORKER-ROBOTIC MACHINE OPERATOR Work Phone: Start: 08-12-2024 Glucose measurement, blood Felicity Castellano MD Work Phone: Start: 08-11-2024 Glucose measurement, blood Felicity Castellano MD Work Phone: Start: 08-11-2024 Glucose measurement, blood Felicity Castellano MD Work Phone: Start: 08-11-2024 Glucose measurement, blood Felicity Castellano MD Work Phone: Start: 08-11-2024 Assay of magnesium Nase rin M Nadine BRIDGE IRONWORKER-ROBOTIC MACHINE OPERATOR Work Phone: Start: 08-10-2024 Glucose measurement, blood Felicity Castellano MD Work Phone: Start: 08-10-2024 Glucose measurement, blood Felicity Castellano MD Work Phone: Start: 08-10-2024 End: 08-10-2024 Culture bacterial blood aerobic w/id isolates Radha Gr BRIDGE IRONWORKER-ROBOTIC MACHINE OPERATOR Work Phone: Start: 08-10-2024 Glucose measurement, blood Felicity Castellano MD Work Phone: Start: 08-10-2024 End: 08-10-2024 Glucose measurement, blood Felicity Castellano MD Work Phone: Start: 08-10-2024 Glucose measurement, blood Felicity Castellano MD Work Phone: Start: 08-10-2024 Assay of magnesium Abram Schulteameh BRIDGE IRONWORKER-ROBOTIC MACHINE OPERATOR Work Phone: Start: 08-10-2024 Glucose measurement, [...] Work Phone: Start: 08-09-2024 Assay of magnesium Abarm Mccoy BRIDGE IRONWORKER-ROBOTIC MACHINE OPERATOR Work Phone: Start: 08-09-2024 Glucose measurement, blood Felicity Castellano MD Work Phone: Start: 08-08-2024 Glucose measurement, blood Felicity Castellano MD Work Phone: Start: 08-08-2024 Culture bct isol&prs mptv id isolate ea urine Bella Cardenas BRIDGE IRONWORKER-ROBOTIC MACHINE OPERATOR Work Phone: Start: 08-08-2024 EXTRA MICRO Bella matthews BRIDGE IRONWORKER-ROBOTIC MACHINE OPERATOR Work Phone: Start: 08-08-2024 URINALYSIS REFLEX TO CULTURE Bella Cardenas BRIDGE IRONWORKER-ROBOTIC MACHINE OPERATOR Work Phone: Start: 08-08-2024 Ct head/brain w/o co ntrast material Bella Cardenas BRIDGE IRONWORKER-ROBOTIC MACHINE OPERATOR Work Phone: Start: 08-08-2024 Glucose measurement, blood Felicity Castellano MD Work Phone: Start: 08-08-2024 End: 08-08-2024 Glucose measurement, blood Felicity Castellano MD Work Phone: Start: 08-08-2024 Assay of magnesium Abram Mccoy BRIDGE IRONWORKER-ROBOTIC MACHINE OPERATOR Work Phone: Start: 08-07-2024 Glucose measurement, blood Felicity Castellano MD Work Phone: Start: 08-07-2024 Glucose measurement, blood Felicity Castellano MD Work Phone: Start: 08-07-2024 Glucose measurement, blood Felicity Castellano MD Work Phone: Start: 08-07-2024 Glucose measurement, blood Felicity Castellano MD Work Phone: Start: 08-06-2024 Glucose measurement, blood Felicity Castellano MD Work Phone: Start: 08-06-2024 Assay of magnesium Abram Mccoy BRIDGE IRONWORKER-ROBOTIC MACHINE OPERATOR Work Phone: Start: 08-06-2024 Glucose measurement, blood Felicity Castellano MD Work Phone: Start: 08-06-2024 Glucose measurement, blood Felicity Castellano MD Work Phone: Start: 08-06-2024 Radiologic exam swal low function contrast study Shanna Russ BRIDGE IRONWORKER-ROBOTIC MACHINE OPERATOR Work Phone: Start: 08-06-2024 SPEECH MODIFIED KEAGAN UM SWALLOW Shanna Russ BRIDGE IRONWORKER-ROBOTIC MACHINE OPERATOR Work Phone: Start: 08-06-2024 Glucose measurement, blood Felicity Castellano MD Work Phone: Start: 08-05-2024 Glucose measurement, blood Felicity Castellano MD Work Phone: Start: 08-05-2024 Assay of magnesium Nase rin Jaiden Nadine BRIDGE IRONWORKER-ROBOTIC MACHINE OPERATOR Work Phone: Start: 08-05-2024 Glucose measurement, blood Felicity Castellano MD Work Phone: Start: 08-05-2024 Glucose measurement, blood Felicity Castellano MD Work Phone: Start: 08-05-2024 [facility] compl spec&colr d Taran Traore BRIDGE IRONWORKER-ROBOTIC MACHINE OPERATOR Work Phone: Start: 08-05-2024 Glucose measurement, blood Felicity Castellano MD Work Phone: Start: 08-05-2024 Assay of magnesium Nase rin Jaiden Nadine BRIDGE IRONWORKER-ROBOTIC MACHINE OPERATOR Work Phone: Start: 08-05-2024 Glucose measurement, [...] Assay of magnesium Nase rin M Nadine BRIDGE IRONWORKER-ROBOTIC MACHINE OPERATOR Work Phone: Start: 08-04-2024 Glucose measurement, blood Richard Mejia MD Work Phone: Start: 08-03-2024 Ct head/brain w/o co ntrast material Shaila Méndez PA-C Start: 08-03-2024 Sodium serum plasma or whole blood Shanna Denise MD Work Phone: Start: 08-03-2024 Glucose measurement, blood Richard Mejia MD Work Phone: Start: 08-03-2024 Radiologic exam abdo men 1 view Balbir Jaiden Nadine BRIDGE IRONWORKER-ROBOTIC MACHINE OPERATOR Work Phone: Start: 08-03-2024 Glucose measurement, [...] brain stem w/o contrast material Taran Traore BRIDGE IRONWORKER-ROBOTIC MACHINE OPERATOR Work Phone: Start: 08-03-2024 ABORH TYPE RECONFIRMATION Cindy CORDOVA Work Phone: Start: 08-03-2024 Assay of magnesium Abram scott Jaiden Cardenash BRIDGE IRONWORKER-ROBOTIC MACHINE OPERATOR Work Phone: Start: 08-02-2024 Glucose measurement, [...] Performed By: #### X M #### [facility] ([facility]) [address] [place] [address] Start: 08-02-2024 EXTRA MICRO Taran Traore BRIDGE IRONWORKER-ROBOTIC MACHINE OPERATOR Work Phone: Start: 08-02-2024 Hemoglobin glycosylated a1c Balbir Mccoy BRIDGE IRONWORKER-ROBOTIC MACHINE OPERATOR Work Phone: Start: 08-02-2024 Hepatic function panel Balbir Mccoy BRIDGE IRONWORKER-ROBOTIC MACHINE OPERATOR Work Phone: Start: 08-02-2024 Iadna s aureus ampli fied probe tq Balbir Cardenash BRIDGE IRONWORKER-ROBOTIC MACHINE OPERATOR Work Phone: Start: 08-02-2024 URINALYSIS REFLEX TO CULTURE Taran Traore BRIDGE IRONWORKER-ROBOTIC MACHINE OPERATOR Work Phone: Start: 08-02-2024 Urnls dip stick/tabl et reagent auto microscopy Taran Traore BRIDGE IRONWORKER-ROBOTIC MACHINE OPERATOR Work Phone: Start: 08-02-2024 SARS-CoV-2, Influenz [...] Author Start: 08-15-2025 Complete blood count Hemoglobin/Hematocrit [facility] Start: 08-15-2025 Creatinine measurement Serum Creatinine [facility] Start: 08-02-2025 Thyroid stimulating hormone measurement [facility] Start: 06-26-2025 Annual PCP Team Chronic Disease Visit Annual PCP Team Chronic Disease Visit [facility] Start: 05-31-2025 Annual PCP Team Chronic Disease Visit Annual PCP Team Chronic Disease Visit [facility] Start: 05-31-2025 Covid-19 Vaccine ( season) Covid-19 Vaccine ( season) [facility] Comment on above: Postponed from 01/14/2024 (Declined at t his time) Start: 05-31-2025 Pneumococcal Vaccine: 50+ (2 of 2 - PPSV23) Pneumococcal Vaccine: 50+ (2 of 2 - PPSV23) [facility] Comment on above: Postponed from 12/19/2019 (Declined at t his time) Start: 05-23-2025 Creatinine measurement Serum Creatinine [facility] Start: 05-23-2025 Hepatitis B screening Urine Albumin:Creatinine Ratio [facility] Start: 05-23-2025 Hepatitis B surface antibody level LDL Cholesterol [facility] Start: 03-04-2025 [facility] Start: 02-25-2025 -[facility] [place] Start: 02-02-2025 [facility]oglobin A[facility]c [facility] Start: 01-13-2025 Influenza vaccination [facility] Start: 01-03-2025 Glaucoma screening Dilated Retinal Exam [facility] Start: 12-24-2024 End: 12-24-2024 Patient encounter procedure 12/24/2024 9:20 AM EDT Office Visit Family [place] [facility] [address] [place] [address] Kameron Caruso MD [address] [place], [place] [id number] 6 month follow up Family [place] [facility] Comment on above: 6 month follow up Start: 11-28-2024 End: 02-27-2025 Comprehensive metabolic 2000 panel - Serum or Plasma COMPREHENSIVE METABOLIC PANEL Lab Routine Essential hypertension, benign Chronic kidney disease, stage 3a (HCC) Hyperlipidemia, unspecified hyperlipidemia type Expected: 11/28/2024 (Approximate), Expires: 02/27/2025 [facility] Work Phone: Comment on above: Expected: 11/28/2024 (Approximate), Expi res: 02/27/2025 Start: 11-28-2024 End: 02-27-2025 Hemoglobin A1c in Blood HEMOGLOBIN A1C Lab Routine Expected: 11/28/2024 (Approximate), Expires: 02/27/2025 [facility] Comment on above: Expected: 11/28/2024 (Approximate), Expi res: 02/27/2025 Start: 11-28-2024 End: 02-27-2025 Lipid 1996 panel - Serum or Plasma LIPID PANEL BASIC Lab Routine Essential hypertension, benign Hyperlipidemia, unspecified hyperlipidemia type Expected: 11/28/2024 (Approximate), Expires: 02/27/2025 [facility] Comment on above: Expected: 11/28/2024 (Approximate), Expi res: 02/27/2025 Start: 11-28-2024 End: 02-27-2025 Thyrotropin [Units/volume] in Serum or Plasma THYROID STIMULATING HORMONE Lab Routine Hypothyroidism, unspecified type Expected: 11/28/2024 (Approximate), Expires: 02/27/2025 [facility] Comment on above: Expected: 11/28/2024 (Approximate), Expi res: 02/27/2025 Start: 11-27-2024 Annual PCP Team Chronic Disease Visit Annual PCP Team Chronic Disease Visit [facility] Start: 11-27-2024 Anxiety Screening Anxiety Screening [facility] Start: 11-27-2024 Depression Screening Depression Screening [facility] Start: 11-27-2024 RSV Vaccine (1 - 1-dose 60+ series) RSV Vaccine (1 - 1-dose 60+ series) [facility] Comment on above: Postponed from 2004 (Declined at t his time) Start: 11-27-2024 RSV Vaccine (1 - 1-dose 75+ series) RSV Vaccine (1 - 1-dose 75+ series) [facility] Comment on above: Postponed from 10/26/2019 (Declined at t his time) Start: 11-26-2024 Creatinine measurement Serum Creatinine [facility] Start: 11-26-2024 Hepatitis B surface antibody level LDL Cholesterol [facility] Start: 11-20-2024 Hemoglobin A1c measurement HbA1C [facility] Start: 11-11-2024 Influenza vaccination Influenza Vaccine (#1) [facility] Comment on above: Postponed from 01/14/2024 (Declined at t his time) Start: 10-08-2024 End: 10-08-2024 ambulatory [facility] Start: 10-02-2024 Evaluation of diagnostic study results 12 Lead EKG performed by [facility] Start: 08-02-2024 [facility] Start: 08-02-2024 SARS-CoV-2, Influenza & RSV (PCR) SARS-CoV-2, Influenza & RSV (PCR) [facility] Start: 08-02-2024 End: 08-02-2024 [facility] Start: 08-02-2024 Electrocardiographic procedure [facility] Start: 08-02-2024 Oxygen therapy [facility] Start: 07-24-2024 End: 10-23-2024 Thyrotropin [Units/volume] in Serum or Plasma THYROID STIMULATING HORMONE Lab Routine Hypothyroidism, unspecified type Expected: 07/24/2024, Expires: 10/23/2024 [facility] Work Phone: Comment on above: Expected: 07/24/2024, Expires: Start: 07-24-2024 End: 10-23-2024 Thyroxine (T4) free [Mass/volume] in Serum or Plasma T4 FREE/FREE THYROXINE Lab Routine Hypothyroidism, unspecified type Expected: 07/24/2024, Expires: 10/23/2024 [facility] Comment on above: Expected: 07/24/2024, Expires: Start: 06-25-2024 End: 06-25-2024 Patient encounter procedure 06/25/2024 9:40 AM EST Office Visit Family [facility] [place] [address] [place], [place] [phone] Kameron Caruso MD [address] [place], [place] [id number] 1 mo f/u, new dx afib. [facility] [place] Comment on above: 1 mo f/u, new dx afib. Start: 06-11-2024 End: 06-11-2024 Patient encounter procedure 06/11/2024 8:50 AM EST Office Visit Cardiology [address], [place] [phone] Atrial fibrillation, unspecified type (HCC) [I48.91] Cardiology Comment on above: Atrial fibrillation, unspecified type (H CC) [I48.91] Start: 05-30-2024 Annual PCP Team Chronic Disease Visit Annual PCP Team Chronic Disease Visit [facility] Start: 05-30-2024 End: 08-29-2024 Comprehensive metabolic 2000 panel - Serum or Plasma COMPREHENSIVE METABOLIC PANEL Lab Routine Type 2 diabetes mellitus with diabetic chronic kidney disease, unspecified CKD stage, unspecified whether longitudinal float operator insulin use (HCC) Essential hypertension, benign Chronic kidney disease, stage 3a (HCC) Hyperlipidemia, unspecified hyperlipidemia type Expected: 05/30/2024 (Approximate), Expires: 08/29/2024 [facility] Work Phone: Comment on above: Expected: 05/30/2024 (Approximate), Expi res: 08/29/2024 Start: 05-30-2024 Covid-19 Vaccine ( season) Covid-19 Vaccine ( season) [facility] Comment on above: Postponed from 01/13/2023 (Declined at t his time) Start: 05-30-2024 End: 08-29-2024 Hemoglobin A1c in Blood HEMOGLOBIN A1C Lab Routine Type 2 diabetes mellitus with diabetic chronic kidney disease, unspecified CKD stage, unspecified whether prison insulin use (HCC) Expected: 05/30/2024 (Approximate), Expires: 08/29/2024 [facility] Comment on above: Expected: 05/30/2024 (Approximate), Expi res: 08/29/2024 Start: 05-30-2024 Hepatitis C screening Hepatitis C Screening [facility] Comment on above: Postponed from 1962 (Declined at t his time) Start: 05-30-2024 End: 08-29-2024 Lipid 1996 panel - Serum or Plasma LIPID PANEL BASIC Lab Routine Type 2 diabetes mellitus with diabetic chronic kidney disease, unspecified CKD stage, unspecified whether longitudinal float operator insulin use (HCC) Essential hypertension, benign Hyperlipidemia, unspecified hyperlipidemia type Expected: 05/30/2024 (Approximate), Expires: 08/29/2024 [facility] Comment on above: Expected: 05/30/2024 (Approximate), Expi res: 08/29/2024 Start: 05-30-2024 End: 08-29-2024 Microalbumin/Creatinine [Mass Ratio] in Urine ALBUMIN/CREATININE RATIO, URINE Lab Routine Type 2 diabetes mellitus with diabetic chronic kidney disease, unspecified CKD stage, unspecified whether prison insulin use (HCC) Expected: 05/30/2024 (Approximate), Expires: 08/29/2024 [facility] Comment on above: Expected: 05/30/2024 (Approximate), Expi res: 08/29/2024 Start: 05-30-2024 Pneumococcal Vaccine: 65+ (2 of 2 - PPSV23 or PCV20) Pneumococcal Vaccine: 65+ (2 of 2 - PPSV23 or PCV20) [facility] Comment on above: Postponed from 12/19/2019 (Declined at t his time) Start: 05-30-2024 End: 08-29-2024 Thyrotropin [Units/volume] in Serum or Plasma THYROID STIMULATING HORMONE Lab Routine Hypothyroidism, unspecified type Expected: 05/30/2024 (Approximate), Expires: 08/29/2024 [facility] Comment on above: Expected: 05/30/2024 (Approximate), Expi res: 08/29/2024 Start: 05-30-2024 End: 05-30-2024 Patient encounter procedure 05/30/2024 9:40 AM EST Office Visit Family [place] [facility] [address] [place] [phone] Kameron Caruso MD [address] [place] [id number] 6 mo f/u Family [place] [facility] Comment on above: 6 mo f/u Start: 05-29-2024 Hemoglobin A1c measurement HbA1C [facility] Start: 05-16-2024 Creatinine measurement Serum Creatinine [facility] Start: 05-16-2024 Hepatitis B screening Urine Albumin:Creatinine Ratio [facility] Start: 05-16-2024 Hepatitis B surface antibody level LDL Cholesterol [facility] Start: 05-15-2024 Advance Directive Discussion Advance Directive Discussion [facility] Start: 01-14-2024 Influenza vaccination [facility] Start: 01-14-2024 [facility] Start: 01-04-2024 Glaucoma screening Dilated Retinal Exam [facility] Start: 01-04-2024 Hepatitis C antibody, confirmatory test Dilated Retinal Exam [facility] Start: 11-28-2023 End: 11-28-2023 Patient encounter procedure 11/28/2023 9:40 AM EDT Office Visit Family [place] [address] [place] [id number] Kameron Caruso MD [address] [place] [id number] 6 mo follow up Family [place] [facility] Comment on above: 6 mo follow up Start: 11-26-2023 ANNUAL PCP TEAM CHRONIC DISEASE VISIT ANNUAL PCP TEAM CHRONIC DISEASE VISIT [facility] Start: 11-26-2023 BP CONTROLLED (<130/80) BP CONTROLLED (<130/80) [facility] Start: 11-23-2023 Complete blood count Hemoglobin/Hematocrit [facility] Start: 11-23-2023 HEMOGLOBIN/HEMATOCRIT HEMOGLOBIN/HEMATOCRIT [facility] Start: 11-23-2023 Hepatitis B surface antibody level LDL CHOLESTEROL [facility] Start: 11-23-2023 SERUM CREATININE SERUM CREATININE [facility] Start: 11-14-2023 Hemoglobin A1c measurement [facility] Start: 05-27-2023 ANNUAL PCP TEAM CHRONIC DISEASE VISIT ANNUAL PCP TEAM CHRONIC DISEASE VISIT [facility] Start: 05-27-2023 COVID-19 VACCINE (2 - Booster for Alyssa series) COVID-19 VACCINE (2 - Booster for Alyssa series) [facility] Comment on above: Postponed from 09/17/2020 (Declined at t his time) Start: 05-27-2023 HEPATITIS C SCREENING HEPATITIS C SCREENING [facility] Comment on above: Postponed from 1962 (Declined at t his time) Start: 05-25-2023 Hemoglobin A1c/Hemoglobin.total in Blood HBA1C [facility] Start: 05-19-2023 HEMOGLOBIN/HEMATOCRIT HEMOGLOBIN/HEMATOCRIT [facility] Start: 05-19-2023 Hepatitis B surface antibody level LDL CHOLESTEROL [facility] Start: 05-19-2023 SERUM CREATININE SERUM CREATININE [facility] Start: 05-15-2023 Advance Directive Discussion Advance Directive Discussion [facility] Start: 05-15-2023 Behavioral Health Screening Behavioral Health Screening [facility] Start: 03-02-2023 ANNUAL PCP TEAM CHRONIC DISEASE VISIT ANNUAL PCP TEAM CHRONIC DISEASE VISIT [facility] Start: 01-13-2023 Covid-19 Vaccine ( season) Covid-19 Vaccine ( season) [facility] Start: 01-13-2023 Influenza vaccination [facility] Start: 12-27-2022 Hepatitis C antibody, confirmatory test DILATED RETINAL EXAM [facility] Start: 11-24-2022 End: 01-24-2023 CBC panel - Blood by Automated count CBC Lab Routine Essential hypertension, benign Hypothyroidism, unspecified type Expected: 11/24/2022 (Approximate), Expires: 01/24/2023 [facility] Work Phone: Comment on above: Expected: 11/24/2022 (Approximate), Expi res: 01/24/2023 Start: 11-24-2022 End: 01-24-2023 Comprehensive metabolic 2000 panel - Serum or Plasma COMP METABOLIC PANEL Lab Routine Essential hypertension, benign Type 2 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, without long-term current use of insulin (HCC) Hyperlipidemia, unspecified hyperlipidemia type Expected: 11/24/2022 (Approximate), Expires: 01/24/2023 [facility] Work Phone: Comment on above: Expected: 11/24/2022 (Approximate), Expi res: 01/24/2023 Start: 11-24-2022 End: 01-24-2023 Hemoglobin A1c in Blood HGB A1C Lab Routine Type 2 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, without long-term current use of insulin (HCC) Expected: 11/24/2022 (Approximate), Expires: 01/24/2023 [facility] Work Phone: Comment on above: Expected: 11/24/2022 (Approximate), Expi res: 01/24/2023 Start: 11-24-2022 End: 01-24-2023 Lipid 1996 panel - Serum or Plasma LIPID PANEL BASIC Lab Routine Essential hypertension, benign Type 2 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, without long-term current use of insulin (HCC) Hyperlipidemia, unspecified hyperlipidemia type Expected: 11/24/2022 (Approximate), Expires: 01/24/2023 [facility] Work Phone: Comment on above: Expected: 11/24/2022 (Approximate), Expi res: 01/24/2023 Start: 11-24-2022 End: 01-24-2023 Thyrotropin [Units/volume] in Serum or Plasma TSH BLD Lab Routine Hypothyroidism, unspecified type Expected: 11/24/2022 (Approximate), Expires: 01/24/2023 [facility] Work Phone: Comment on above: Expected: 11/24/2022 (Approximate), Expi res: 01/24/2023 Start: 11-23-2022 3 comp foot exam completed DIABETIC FOOT EXAM [facility] Start: 11-23-2022 ANNUAL PCP TEAM CHRONIC DISEASE VISIT ANNUAL PCP TEAM CHRONIC DISEASE VISIT [facility] Start: 11-23-2022 Diabetic foot examination Diabetic Foot Exam [facility] Start: 11-20-2022 Hepatitis B screening URINE ALBUMIN:CREATININE RATIO [facility] Start: 11-20-2022 Hepatitis B surface antibody level LDL CHOLESTEROL [facility] Start: 11-20-2022 SERUM CREATININE SERUM CREATININE [facility] Start: 11-16-2022 Hemoglobin A1c/Hemoglobin.total in Blood HBA1C [facility] Start: 11-11-2022 Influenza vaccination INFLUENZA (#1) [facility] Comment on above: Postponed from 01/13/2022 (Declined at t his time) Start: 05-26-2022 End: 07-26-2022 CBC panel - Blood by Automated count CBC Lab Routine Essential hypertension, benign Stage 3b chronic kidney disease (HCC) Expected: 05/26/2022 (Approximate), Expires: 07/26/2022 [facility] Work Phone: Comment on above: Expected: 05/26/2022 (Approximate), Expi res: 07/26/2022 Start: 05-26-2022 End: 07-26-2022 Comprehensive metabolic 2000 panel - Serum or Plasma COMP METABOLIC PANEL Lab Routine Type 2 diabetes mellitus with diabetic chronic kidney disease, unspecified CKD stage, unspecified whether longitudinal float operator insulin use (HCC) Essential hypertension, benign Hyperlipidemia, unspecified hyperlipidemia type Stage 3b chronic kidney disease (HCC) Expected: 05/26/2022 (Approximate), Expires: 07/26/2022 [facility] Work Phone: Comment on above: Expected: 05/26/2022 (Approximate), Expi res: 07/26/2022 Start: 05-26-2022 End: 07-26-2022 Hemoglobin A1c in Blood HGB A1C Lab Routine Type 2 diabetes mellitus with diabetic chronic kidney disease, unspecified CKD stage, unspecified whether longitudinal float operator insulin use (HCC) Expected: 05/26/2022 (Approximate), Expires: 07/26/2022 [facility] Work Phone: Comment on above: Expected: 05/26/2022 (Approximate), Expi res: 07/26/2022 Start: 05-26-2022 End: 07-26-2022 Lipid 1996 panel - Serum or Plasma LIPID PANEL BASIC Lab Routine Essential hypertension, benign Hyperlipidemia, unspecified hyperlipidemia type Expected: 05/26/2022 (Approximate), Expires: 07/26/2022 [facility] Work Phone: Comment on above: Expected: 05/26/2022 (Approximate), Expi res: 07/26/2022 Start: 05-26-2022 End: 07-26-2022 Thyrotropin [Units/volume] in Serum or Plasma TSH BLD Lab Routine Hypothyroidism, unspecified type Expected: 05/26/2022 (Approximate), Expires: 07/26/2022 [facility] Work Phone: Comment on above: Expected: 05/26/2022 (Approximate), Expi res: 07/26/2022 Start: 05-23-2022 Hemoglobin A1c/Hemoglobin.total in Blood HBA1C [facility] Start: 05-18-2022 ANNUAL PCP TEAM CHRONIC DISEASE VISIT ANNUAL PCP TEAM CHRONIC DISEASE VISIT [facility] Start: 05-17-2022 Hepatitis B surface antibody level LDL CHOLESTEROL [facility] Start: 05-17-2022 SERUM CREATININE SERUM CREATININE [facility] Start: 05-15-2022 ADVANCE DIRECTIVE DISCUSSION ADVANCE DIRECTIVE DISCUSSION [facility] Start: 01-13-2022 Influenza vaccination [facility] Start: 01-11-2022 Hepatitis C antibody, confirmatory test DILATED RETINAL EXAM [facility] Start: 11-14-2021 Hemoglobin A1c/Hemoglobin.total in Blood HBA1C [facility] Start: 11-06-2021 Screening for malignant neoplasm of breast [facility] Start: 11-05-2021 3 comp foot exam completed DIABETIC FOOT EXAM [facility] Start: 11-05-2021 Adult depression screening assessment DEPRESSION SCREENING [facility] Start: 11-04-2021 Hepatitis B screening URINE ALBUMIN:CREATININE RATIO [facility] Start: 10-15-2021 Hepa vaccine adult dose for intramuscular use HEPATITIS A VACCINE ADULT IM Immunization/Injection Routine Need for vaccination Expected: 10/15/2021 [facility] Work Phone: Comment on above: Expected: 10/15/2021 Start: 10-15-2021 Tdap vaccine 7 yrs/> im TDAP VACCINE AGE 7+ IM Immunization/Injection Routine Need for vaccination Expected: 10/15/2021 [facility] Work Phone: Comment on above: Expected: 10/15/2021 Start: 05-15-2021 ADVANCE DIRECTIVE DISCUSSION ADVANCE DIRECTIVE DISCUSSION [facility] Start: 05-15-2021 DEPRESSION ASSESSMENT DEPRESSION ASSESSMENT [facility] Start: 10-23-2020 PNEUMOCOCCAL: 65+ (2 - PPSV23 if available, else PCV20) PNEUMOCOCCAL: 65+ (2 - PPSV23 if available, else PCV20) [facility] Start: 10-23-2020 PNEUMOCOCCAL: 65+ (2 - PPSV23 or PCV20) PNEUMOCOCCAL: 65+ (2 - PPSV23 or PCV20) [facility] Start: 10-16-2020 HEMOGLOBIN/HEMATOCRIT HEMOGLOBIN/HEMATOCRIT [facility] Start: 09-17-2020 COVID-19 VACCINE (2 - Booster for Alyssa series) COVID-19 VACCINE (2 - Booster for Alyssa series) [facility] Start: 12-19-2019 Pneumococcal vaccination [facility] Start: 12-19-2019 Pneumococcal Vaccine: 65+ (2 - PPSV23 or PCV20) Pneumococcal Vaccine: 65+ (2 - PPSV23 or PCV20) [facility] Start: 12-19-2019 PNEUMOCOCCAL: 65+ (2 - PPSV23 or PCV20) PNEUMOCOCCAL: 65+ (2 - PPSV23 or PCV20) [facility] Start: 11-08-2019 Screening for malignant neoplasm of colon [facility] Start: 10-26-2019 [facility] Start: 01-13-2019 Influenza vaccination Flu vaccine (#1) [place] Start: 12-23-2018 Annual Wellness Visit (AWV) Annual Wellness Visit (AWV) [place] Start: 2009 DEXA (modify frequency per FRAX score) DEXA (modify frequency per FRAX score) [place] Start: 2009 Pneumococcal 65+ years Vaccine (1 of 1 - PPSV23) Pneumococcal 65+ years Vaccine (1 of 1 - PPSV23) [place] Start: 2009 Pneumococcal 65+ years Vaccine (1 of 2 - PCV13) Pneumococcal 65+ years Vaccine (1 of 2 - PCV13) [place] Start: 10-26-2007 Annual Wellness Visit (AWV) Annual Wellness Visit (AWV) [place] Start: 2004 Hepatitis B Vaccine (1 of 3 - Risk 3-dose series) Hepatitis B Vaccine (1 of 3 - Risk 3-dose series) [facility] Start: 2004 RSV Vaccine (1 - 1-dose 60+ series) RSV Vaccine (1 - 1-dose 60+ series) [facility] Start: 10-26-1999 Screening for osteoporosis DEXA (modify frequency per FRAX score) [place] Start: 1994 Breast cancer screen Breast cancer screen [place] Start: 1994 Colon cancer screen colonoscopy Colon cancer screen colonoscopy [place] Start: 1994 Screening for malignant neoplasm of breast Breast cancer screen [place] Start: 1994 Screening for malignant neoplasm of colon Colon cancer screen colonoscopy [place] Start: 1994 Shingles Vaccine (1 of 2) Shingles Vaccine (1 of 2) [place] Start: 1984 Lipid screen Lipid screen [place] Start: 1965 Screening for malignant neoplasm of cervix [facility] Start: 10-26-1963 DTaP/Tdap/Td vaccine (1 - Tdap) DTaP/Tdap/Td vaccine (1 - Tdap) [place] Start: 10-26-1963 Third diphtheria, tetanus and acellular pertussis (DTaP) vaccination [facility] Start: 10-26-1963 Urine microalbumin profile [facility] Start: 1962 BP CONTROLLED (<130/80) BP CONTROLLED (<130/80) [facility] Start: 1962 HEPATITIS C SCREENING HEPATITIS C SCREENING [facility] Start: 1954 Lipid panel Lipid screen [place] Start: 1944 Creatinine measurement Creatinine monitoring [place], [place] Start: 1944 Creatinine monitoring Creatinine monitoring [place], [place] Start: 1944 Hepatitis C screen Hepatitis C screen [place] Start: 1944 Hepatitis C screening [facility] Start: 1944 Potassium monitoring Potassium monitoring [place] Start: 1944 Screening for osteoporosis [facility] Start: 1944 Tetanus vaccination [facility] End: 01-09-2019 Blood glucose - POCT Blood glucose - POCT Point of Care Testing Routine One Time for 1 Occurrences starting 01/09/2019 until 01/09/2019 [place] Comment on above: One Time for 1 Occurrences starting 12/14 until 01/09/2019 ECG COMPLETE [facility] Comment on above: Ordered: 05/31/2024 End: 05-31-2025 Echocardiography [facility] Routine Atrial fibrillation, unspecified type (HCC) 1 Occurrences starting 05/31/2024 until 05/31/2025 [facility] Comment on above: 1 Occurrences starting 05/31/2024 until 05/31/2025 Patient referral [facility] Work Phone: End: 01-09-2019 Pulse Oximetry Spot Check Pulse Oximetry Spot Check Respiratory Care Routine One Time for 1 Occurrences starting 01/09/2019 until 01/09/2019 [place], [place] Comment on above: One Time for 1 Occurrences starting 12/14 until 01/09/2019 End: 08-02-2024 PV FLUOROSCOPY OR [facility] End: 08-02-2024 Standard ECG [facility] [place] [facility] Immunizations Immunization Date Immunization Notes Care Provider Fa sonya 07-23-2020 SARS-CoV-2 (COVID-19 ) Ad26 vaccine, recombinant SILVINO PEARL DO Tyler Garcia Comment on above: Result Comment: 2024: TPV75 02-27-2020 influenza, high dose seasonal, preservative-free Kameron Caruso MD Work Phone: [facility] 02-27-2020 influenza virus vaccine, unspecified formulation Kameron Caruso MD Work Phone: [facility] 10-24-2019 pneumococcal conjuga te vaccine, 13 valent Kameron Caruso MD Work Phone: [facility] 10-24-2019 zoster vaccine recombinant Kameron Caruso MD Work Phone: [facility] 07-25-2019 influenza virus vaccine, unspecified formulation SILVINO PEARL DO [facility] 07-25-2019 influenza, seasonal, injectable Kameron Caruso MD Work Phone: [facility] 07-25-2019 zoster vaccine recombinant Kameron Caruso MD Work Phone: [facility] 04-13-2015 influenza virus vaccine, unspecified formulation SILVINO PEARL DO [facility] 05-01-2014 influenza virus vaccine, unspecified formulation SILVINO PEARL DO [facility] 05-01-2014 influenza, high dose seasonal, preservative-free Kameron Caruso MD Work Phone: [facility] 02-22-2012 influenza virus vaccine, unspecified formulation Kameron Caruso MD Work Phone: [facility] Work Phone: 03-19-2007 influenza virus vaccine, unspecified formulation Kameron Caurso MD Work Phone: [facility] Work Phone: Payers Date Payer Category Payer Medicare [id number] 2024 Unknown [id number] 2024 Self-pay 2018 Medicare [employer]-MEDICA RE ADVANTAGE [employer]-MEDICARE ADVANTAGE xxxxxxxxxxx 2018-Present [phone] [address] [place] [address] xxxxxxxxxxx [id number] .[id number] 2018 Unknown [id number] 2013 Medicare [facility] [place] [place] [id number] 2013-Present [phone] [address] [place] [address] O [id number] 1.2.840.687683.1.13.159.2 .7.3.184969.315 2013 Medicare [id number]. 1.13.159.2 .7.3.229054.315 2013 Medicare (Managed Care) 1.2. 840.579676.1.13.159.2 .7.9.679857.00920.315 2013 Medicare [id number] 1945 Unknown [id number] 2.16.840.1.366158.3.579.2 .627 1944 Unknown [id number] 2.16.840.1.882839.3.579.2 .732 1944 Unknown [id number] 2.16.840.1.546510.3.579.2 .594 1944 Unknown [id number] 2.16.840.1.498027.3.579.2 .594 1944 Unknown [id number] 2.16.840.1.214369.3.579.2 .627 Unknown [id number] 2.16.840.1.965872.3.579.2 .462 Unknown [id number] 2.16.840.1.873935.3.579.2 .462 Unknown [id number] 2.16.840.1.267112.3.579.2 .462 Unknown [id number] 2.16.840.1.513651.3.579.2 .462 Unknown [id number] 2.16.840.1.882255.3.579.2 .462 Unknown [id number] 2.16.840.1.818253.3.579.2 .462 Unknown [id number] 2.16840.1.462529.3.579.2 .462 Unknown [id number] 2.16840.1.637408.3.579.2 .462 Unknown [id number] 2.16.840.1.396336.3.579.2 .462 Unknown [id number] 2.840.1.835006.3.579.2 .462 Unknown [id number] 2.840.1.118151.3.579.2 .462 Unknown [id number] 2.840.1.516896.3.579.2 .462 Unknown [id number] 2.840.1.382994.3.579.2 .462 Unknown [id number] 2.840.1.758304.3.579.2 .462 Unknown [id number] 2.840.1.290617.3.579.2 .462 Unknown [id number] 2.840.1.477861.3.579.2 .462 Unknown [id number] 2.840.1.570230.3.579.2 .462 Unknown [id number] 2.840.1.177374.3.579.2 .462 Unknown [id number] 2.840.1.397849.3.579.2 .462 Unknown [id number] 2.840.1.198578.3.579.2 .462 Unknown [id number] 2.840.1.198191.3.579.2 .462 Unknown [id number] 2.840.1.826480.3.579.2 .462 Unknown [id number] 2.840.1.647286.3.579.2 .462 Unknown [id number] 2.840.1.818878.3.579.2 .462 Unknown [id number] 2.840.1.258424.3.579.2 .462 Unknown [id number] 2..840.1.887307.3.579.2 .462 Unknown [id number] 2.16.840.1.805212.3.579.2 .462 Unknown [id number] 2.16.840.1.821642.3.579.2 .462 Unknown [id number] 2.840.1.659077.3.579.2 .462 Unknown [id number] 2.840.1.361408.3.579.2 .462 Unknown [id number] 2.840.1.147229.3.579.2 .462 Unknown [id number] 2.840.1.842580.3.579.2 .462 Unknown [id number] 2.840.1.984633.3.579.2 .462 Unknown [id number] 2.840.1.884034.3.579.2 .462 Unknown [id number] 2.840.1.445098.3.579.2 .462 Unknown [id number] 2.840.1.529853.3.579.2 .462 Unknown [id number] 2.840.1.940810.3.579.2 .462 Unknown [id number] 2.840.1.234043.3.579.2 .462 Unknown [id number] 2.840.1.640763.3.579.2 .462 Unknown [id number] 2.840.1.871519.3.579.2 .462 Unknown [id number] 2.840.1.564704.3.579.2 .462 Unknown [id number] 2.840.1.153200.3.579.2 .462 Unknown [id number] 2.840.1.162883.3.579.2 .462 Social History Date Type Detail Facility Start: 01-09-2019 End: 08-02-2024 Tobacco smoking status NHIS Never smoker [facility] Start: 01-09-2019 End: 11-25-2022 Alcohol intake Never [facility] Work Phone: Start: 12-24-2018 [facility] SD[facility] Start: 1945 [facility] Start: 10-16-2019 Alcohol intake Lifetime non-d hortencia (finding) [place] Exposure to SARS-CoV -2 (event) [facility] Start: 05-18-2021 End: 06-26-2024 Alcohol intake Current non-drinker of alcohol (finding) [facility] Start: 11-13-2021 End: 03-02-2022 Exposure to SARS-CoV-2 (event) Not sure [facility] Start: 02-02-2011 End: 03-02-2022 Tobacco use and exposure Smokeless tobacco non-user [facility] Start: 11-25-2022 End: 11-28-2023 History of Social function [facility] Work Phone: Adult Depression Screening Assessment 0 [facility] Work Phone: Start: 06-22-2005 End: 08-02-2024 Sex Female (finding) [facility] Start: 1945 Sex Assigned At Female [facility] Sexual Orientation [facility] Medical Equipment Procedure Code Equipment Code Equipment Original Text Equipment Identifier Dates [id number], [id number], [id number] Start: 11-30-2020 End: 04-08-2023 Comment on above: [...] Functional Status Room check performed Gillian [facility] [employer] 09-09-2024 Functional Status [facility] 09-09-2024 Functional Status Skin Care Prev entative Intervention(s) heel(s)s elevated [facility] [employer] 09-08-2024 Functional Status [facility] 09-08-2024 Functional Status [facility] 09-06-2024 Functional Status 11pm-7am [facility] 09-06-2024 Functional Status Antiembolism S tocking On/Re-applied bilateral knee high [facility] 09-05-2024 Functional Status Oral Care [facility] Status [facility] 09-05-2024 Functional Status Done [facility] 09-04-2024 Functional Status [facility] 09-04-2024 Functional Status [facility] 09-03-2024 Functional Status NPO Status Maintained A [facility] [employer] 09-03-2024 Functional Status None [facility] 09-03-2024 Functional Status [facility] 08-29-2024 Functional Status [facility] 08-29-2024 Functional Status [facility] 08-27-2024 Functional Status Orthotics, Dev ice Worn Per Schedule Yes [facility] 08-27-2024 Functional Status [facility] 08-26-2024 Functional Status [facility] 08-23-2024 Functional Status [facility] 08-23-2024 Functional Status Breakfast Percent 25 [facility] 08-20-2024 Functional Status [facility] 08-19-2024 Functional Status [facility] 08-16-2024 Functional Status Single level h ome, basement laundry [facility] 08-16-2024 Functional Status Outside Stairs Rail Rail on left going up [facility] 08-15-2024 Functional Status Sensory Defici ts Speech deficit [facility] 10-14-2014 Are you deaf, or do you have serious difficulty hearing No [facility] 10-14-2014 Are you blind, or do you have serious difficulty seeing, even when wearing glasses No [facility] 10-14-2014 Do you have serious difficulty walking or climbing stairs No [facility] 10-14-2014 Do you have difficul ty dressing or bathing No [facility] 10-14-2014 Because of a physica l, mental, or emotional condition, do you have difficulty doing errands alone such as visiting a physician's office or shopping No [facility] Mental Status Date Assessment Result Facility 09-09-2024 Mental Status Does not interact [facility] 09-08-2024 Mental Status [facility]en[facility] 09-08-2024 Mental Status Tyler [facility] jen[facility] 08-02-2024 Cognitive function Awake;Alert;F ollows Commands [facility] Work Phone: 10-14-2014 Because of a physica l, mental, or emotional condition, do you have serious difficulty concentrating, remembering, or making decisions No [facility] Clinical Notes 11-03-2020 to 10-02-2024 Note Date & Type Note Facility 10-02-2024 Evaluation note Diagnosis Onset Date Resolution Acute ischemic right MCA stroke acute October 02, 2024 9:29am Essential hypertension acute 2024 9:29am Hyperlipidemia acute October 02, 2024 9:29am Paroxysmal atrial fibrillation with RVR acute October 02, 2024 9:29am [facility] Work Phone: 1(633) 647-594604-28-2025 Note Discharge Instructions Thank you for allowing [...] 3-7 days Where:[address] [place] [address]- Additional Information: Please schedule follow up PCP appointment for after discharge from SNF, Bring discharge instructions with you Follow Up with RIMMA POWERS MD When:10/08/2024 04:00 PM EDT Where:[facility] ([address], [place]) Additional Information: Neurosurgeon The Following Activity and [...] standard right Seat cushion, 99 month(s), Tyler [id number], 09/02/24 8:22:00 EDT Transfer of Care Wound [...] depending on your insurance coverage. Check with yourNimble CRM company about what is covered. Keeping follow-up [...] 08/04/2017 Document Revised: 05/04/2018 Document Reviewed: 08/04/2017 [employer] Patient Education 2020 [employer] Additional Information VACCINATE! IT SAVES LIVES! Members of the community who have not yet received the COVID-19 vaccine and would like to receive it can visit one of [facility] vaccine clinics. There are many vaccine clinic locations within the [facility]. For locations and available times, please visit [email or web address]/. It is important to note that some COVID mobile vaccine clinics are held outdoors and may be canceled in rainy or stormy conditions. To learn more about pediatric vaccinations (ages 5-11), we invite you to visit the [facility] webpage. https://www.[email or web address].org/pages/[email or web address]-Dhgpa-Cvvdtwtdldu-Dedrpriwbu-Lxdme-Pva stions.htmlTo learn more about the COVID-19 vaccine, we invite you to visit the CDC website for a list of frequently asked questions.https://www.cdc.gov/coronavirus/2019-ncov/vaccines/faq.html [facility] Patient Portal Access Instructions: Stay connected with your healthcare team and access your personal medical information anytime with the [facility] Patient Portal. Please follow the directions below to create your [facility] account: 1.Access the email account you provided upon registration to the hospital/physician office.2.Look for an invitation email from [facility].3.Open the email and access the invitation link: AcceptInvitation to [facility].4.Fill in the required richards to create your account. To access your account, visit [email or web address]. Click the blue button labeled "Access Patient [...] who you will allowto register on the [facility] Patient Portal for access to your information. You can also access the [facility] Patient Portal on the [facility] dahlia. Simply click on "Patient Portal" and then log into your account. If you would like to receive a full copy of your medical records, please contact the [facility] Medical Records Department by calling [phone], Monday through Monday between 8 a.m. and [...] Call your local pharmacy or go to http://bit.ly/3C6Lo0d to find one close to you.3.Make use of household items: Use cat litter or old coffee grounds to dispose medications if other options arenot available. Mix your drugs with these household products, seal them in an airtight container andthrow it into the garbage. Call [facility]: [phone] to be sure your drugs can be [...] aware that I should contact my doctor. Patient/Aquatics Specialist Signature: Date/Time: Relationship to Patient: Witness Name/Signature: Date/Time: Tyler [id number] Note Discharge Instructions Thank you for allowing [...] KAMERON CARUSO MD When:Within 3-7 days Where:[address] [place] [address]- Additional Information: Please schedule follow up PCP appointment for after discharge from SNF, Bring discharge instructions with you Follow Up with RIMMA POWERS MD When:10/08/2024 04:00 PM EDT Where:[facility] ([address], [place]) Additional Information: Neurosurgeon The Following Activity and [...] standard right Seat cushion, 99 month(s), Tyler [id number], 09/02/24 8:22:00 EDT Transfer of Care Wound [...] depending on your insurance coverage. Check with yourMindframe about what is covered. Keeping follow-up visits [...] 08/04/2017 Document Revised: 05/04/2018 Document Reviewed: 08/04/2017 [employer] Patient Education 2020 [employer] Additional Information VACCINATE! IT SAVES LIVES! Members of the community who have not yet received the COVID-19 vaccine and would like to receive it can visit one of [facility] vaccine clinics. There are many vaccine clinic locations within the [facility]. For locations and available times, please visit [email or web address]/. It is important to note that some COVID mobile vaccine clinics are held outdoors and may be canceled in rainy or stormy conditions. To learn more about pediatric vaccinations (ages 5-11), we invite you to visit the [facility] webpage. https://www.[email or web address].org/pages/5331-Cjsqy-Lehumkulwnp-Cyddseqrqn-Pmdky-Xfp stions.htmlTo learn more about the COVID-19 vaccine, we invite you to visit the CDC website for a list of frequently asked questions.https://www.cdc.gov/coronavirus/2019-ncov/vaccines/faq.html [facility] Patient Portal Access Instructions: Stay connected with your healthcare team and access your personal medical information anytime with the [facility] Patient Portal. Please follow the directions below to create your [facility] account: 1.Access the email account you provided upon registration to the hospital/physician office.2.Look for an invitation email from [facility].3.Open the email and access the invitation link: AcceptInvitation to [facility].4.Fill in the required richards to create your account. To access your account, visit Celles/Fluid EntertainmentOneChart. Click the blue button labeled "Access Patient Portal" and then log in with the username and password that you created in the steps above. You will be able to view your test results, lab results, a summary of your visits, upcoming appointments and more. There is also a convenient messaging option where you can send secure messages to your p Eso Technologiesvider. In addition, you will have the ability to download any documents or summaries to your computer and/or send the information securely to a physician. Remember that your healthcare information is confidential, so carefully consider who you will allowto register on the [facility] Patient Portal for access to your information. You can also access the [facility] Patient Portal on the [place] AquaMostwhere dahlia. Simply click on "Patient Portal" and then log into your account. If you would like to receive a full copy of your medical records, please contact the [facility] Medical Records Department by calling [phone], Monday through Monday between 8 a.m. and [...] Call your local pharmacy or go to http://bit.Solfo/3W3Ry5l to find one close to you.3.Make use of household items: Use cat litter or old coffee grounds to dispose medications if other options arenot available. Mix your drugs with these household products, seal them in an airtight container andthrow it into the garbage. Call [facility]: [phone] to be sure your drugs can be [...] aware that I should contact my doctor. Patient/Aquatics Specialist Signature: Date/Time: Relationship to Patient: Witness Name/Signature: Date/Time: Tyler [id number] Physical medicine and rehab Discharge summary Date [...] in discharge valuation. She was admitted to [facility] from [facility] stay 08/02 - 08/15 who has a history of CAD, DM2, atrial fibrillation and hypertension whopresented to the ER after noting left-sided weakness and slurred speech. Originally presented to [facility] where CT head was obtained showing [...] self-care assistance needs decision made to request alf facility. Approval is requested. Patient was to [...] Ordered -- 08/15/24 17:18:00 EDT, AMI HEATON APRN-ROBOTIC MACHINE OPERATOR, [facility] per policy Physical Exam [...] oral tablet)1 tab(s) PEG tube every day. [id number] Microgram PEG tube once a day. metoprolol [...] KAMERON CARUSO MD When:Within 3-7 days Where:[address] [place] [address]- Additional Information: Please schedule follow up PCP appointment for after discharge from SNF, Bring discharge instructions with you Follow Up with RIMMA POWERS MD When:10/08/2024 04:00 PM EDT Where:[facility] ([address], [place]) Additional Information: Neurosurgeon Follow Up Appointments No [...] SILVINO PEARL DO on 09/09/2024 01:46 PM [place] [id number] Nurse Progress note Nursing GG Entered On: 09/09/2024 10:55 EDT Performed On: 09/09/2024 10:55 EDT by Abigail Rodas RN Nursing GG's OT GG Grid Eating : Not Completed Abigail Rodas RN - 09/09/2024 10:55 EDT Digitally Signed by Abigail Rodas RN on 09/09/2024 10:55 AM [place] [address]-27-2025 Nurse Progress note Nursing GG Entered On: 09/08/2024 17:39 EDT Performed On: 09/08/2024 17:39 EDT by Rob Alarcon RN Nursing GG's OT GG Grid Eating : Not Completed Oral Hygiene : Not Completed Toilet Hygiene : Substantial/Maximal Assistance Toilet Transfer : Substantial/Maximal Assistance Rob Alarcon RN - 09/08/2024 17:39 EDT Digitally Signed by Rob Alarcon RN on 09/08/2024 05:39 [address]27-2025 Nurse Progress note Pt had 250ml residual, 12:30pm bolus was held! Digitally Signed by Rob Alarcon RN on 09/08/2024 12:47 PM [place] [address]-25-2025 Physical medicine and rehab Progress note Rehab [...] speech. She originally presented to [facility] with CT of the head was obtained showed no acute hemorrhage or large territory stroke. CTA showed mid right M1 occlusion however patient was not a TNK candidate. She was then transferred to a [facility] for further management. CT of head [...] Rate64(SEP 05 16:46)64(SEP 05 16:46)85(SEP 05 09:40) [id number](SEP 05 16:36)138(SEP 05 16:36)H 158(SEP 05 09:52) [...] PEARL DO on 09/06/2024 12:34 PM Tyler [id number] Hospital Discharge instructions Patient Education 09/05/2024 14:15:00 [...] depending on your insurance coverage. Check with yourNimble CRM company about what is covered. Keeping follow-up [...] 08/04/2017 Document Revised: 05/04/2018 Document Reviewed: 08/04/2017 [employer] Patient Education 2020 [employer]. Follow Up Care 08/15/2024 08:51:25 With:RIMMA POWERS MD Address: [facility] ([address], [place]) When:10/08/2024 16:00:00 Comments:Neurosurgeon With:JONNIE BANSAL MD Address: [facility] When: Unknown Comments:GI, No appointment needed until PEG is ready to be removed or concerns arise With:KAMERON CARUSO MD Address: [address] [place] [address]- When:3-7 days Comments:Please schedule follow up PCP [...] less than 3 seconds. Ongoing hemiparesis VITALS UgtbegZjpyZIPyoxvLJCjJ9RUG7BwfhVq(kg) 09/05 09:5236.3--462319YH 09/05 09:40----85----RA 09/04 23:3236.6--605026RX 09/04 21:2436.5--756381QM 09/04 16:01----72----RA 24 Hr Tmax: 36.6 at [...] tab(s), PEG, Daily, 08/15/24 17:09:00 EDT balsam Fenelton-castor oil topical (Venelex 788 mg-87 mg/g topical [...] None Problems (6) CVA (cerebral vascular accident) (572487031) Diabetes mellitus (158404119) Dysphagia (04704436) Hyperlipidemia (92653462) Hypertension (4191239035) Osteoarthritis (6690894070) ASSESSMENT/PLAN: Right basal ganglia hemorrhage, status post thrombectomy with revascularization follow-up appointment with neurosurgery on 10/08. Continue work with physical and Occupational Therapy with goal to return home at discharge. reports that referrals have been sent to alf facilities yesterday. Currently has 4 options in [...] CATHERINE DUEÑAS on 09/05/2024 04:55 PM Tyler [id number] Physical medicine and rehab Progress note Subjective [...] area Neuro: Left upper extremity hemiparesis VITALS GkncqxGlmcHXJtnneLTUrV5THU8FcbzYj(kg) 09/04 23:3236.6--951481NI 09/04 21:2436.5--044114OK 09/04 16:01----72----RA 09/04 12:10--------97RA 09/04 10:5435.9--344815QC 24 Hr Tmax: 36.6 at 09/04 23:32 [...] tab(s), PEG, Daily, 08/15/24 17:09:00 EDT balsam Fenelton-castor oil topical (Venelex 788 mg-87 mg/g topical [...] SBP (mmHg) < 110, 1st dose location: [facility], , 08/15/24 17:09:00 EDT Active PRN [...] REPEAT x1., 1st dose location: [facility], 0, 08/15/24 1... glucose (Dextrose 50% [...] None Problems (6) CVA (cerebral vascular accident) (438817580) Diabetes mellitus (254038689) Dysphagia (29845969) Hyperlipidemia (71310494) Hypertension (2560653670) Osteoarthritis (2913388950) ASSESSMENT/PLAN: Acute right basal ganglia hemorrhage with [...] HUTTON DO on 09/05/2024 10:12 AM Tyler [id number] Physical medicine and rehab Progress note Rehab [...] speech. She originally presented to [facility] with CT of the head was obtained showed no acute hemorrhage or large territory stroke. CTA showed mid right M1 occlusion however patient was not a TNK candidate. She was then transferred to a [facility] for further management. CT of head [...] Rate64(SEP 03 15:52)64(SEP 03 15:52)90(SEP 03 08:28) AJL915(SEP 04 05:38)112(SEP 04 05:38)127(SEP 03 08:00) DBP70(SEP [...] PEARL DO on 09/04/2024 11:55 AM Tyler [id number] Note Subjective Patient states she is doing [...] area Neuro: Left upper extremity hemiparesis VITALS OsxsinCharZUGpyrnBMZtB3ISO1KpokRh(kg) 09/03 21:4136.4--656160VQ 09/03 15:52----63---- 09/03 08:46 09/03 08:28----90---- 09/03 08:0036.4--920629DQ 24 Hr Tmax: 36.4 at 09/03 21:41 [...] tab(s), PEG, Daily, 08/15/24 17:09:00 EDT balsam Fenelton-castor oil topical (Venelex 788 mg-87 mg/g topical [...] SBP (mmHg) < 110, 1st dose location: [facility], 1, 08/15/24 17:09:00 EDT oxybutynin (oxybutynin [...] 2 minutes, REPEAT x1., 1st dose location: [facility], 0, 08/15/24 1... glucose (Dextrose 50% [...] None Problems (6) CVA (cerebral vascular accident) (047551376) Diabetes mellitus (495984125) Dysphagia (32307093) Hyperlipidemia (67347806) Hypertension (7248663696) Osteoarthritis (4626054489) ASSESSMENT/PLAN: Acute right basal ganglia hemorrhage with [...] HUTTON DO on 09/05/2024 08:57 AM Tyler [id number] Note Subjective Patient states that she is [...] area Neuro: Left upper extremity hemiparesis VITALS KiguwnUvanEEGeebtRIIkB0DFE4GswrBf(kg) 09/03 00:2636.3--621856FP 09/02 21:5136.2--316221AX 09/02 16:56----88--98RA 09/02 10:40 RA 09/02 09:0936.0--874849CC 24 Hr Tmax: 37.0 at 09/02 05:55 [...] < 110, 1st dose location: [facility], 1, 08/15/24 17:09:00 EDT oxybutynin (oxybutynin [...] None Problems (6) CVA (cerebral vascular accident) ([id number]) Diabetes mellitus (949668573) Dysphagia (91566851) Hyperlipidemia (12950808) Hypertension (5659157243) Osteoarthritis (7371148662) ASSESSMENT/PLAN: Acute right basal ganglia hemorrhage with [...] NANDO HUTTON DO on 09/05/2024 08:57 AM [facility] Note* Exam Date Time Procedure Performing Provider Status 09/02/24 2:[address] Head or Brain w/o Contrast Brenda MCCLELLAN MD; Auth (Verified) [id number] ORIGINAL HISTORY: Lethargy COMPARISON: No TECHNIQUE: Routine [...] 09/02/2024 3:10:44 PM Ordering Provider: SILVINO Scott [id number] Telephone encounter Note* Telephone Encounter - Fouzia Miller LPN - 08/30/2024 10:09 AM EDT Marya Scott [facility] notified. [facility]04-18-2025 Miscellaneous Notes* Telephone Encounter - Fouzia Miller LPN - 08/30/2024 10:09 AM EDT Marya Scott [facility] notified. * Telephone Encounter - Mj Glover APRN.CNP - 08/30/2024 9:19 AM EDT Please let know that Dr. Caruso's team will follow orders. Okay to proceed. Mj Glover APRN.CNP * Telephone Encounter - Jaiden Paulino RN - 08/30/2024 9:07 AM EDT [facility] reports patient was in [facility] with dx: stroke, and transferred to [facility]. Pt will be discharged from [facility] on 09/07/24 to home with [facility] SN PT OT [facility] & [facility]. Asking if pcp agreeable to follow for HHC. Please phone Marya with verbal: [phone] documented in [facility] Telephone encounter Note * Telephone Encounter - Mj Glover APRN.CNP - 08/30/2024 9:19 AM EDT Please let know that Dr. Caruso's team will follow HH orders. Okay to proceed. Mj Glover APRN.CNP [facility]04-18-2025 Telephone encounter Note* Telephone Encounter - Jaiden Paulino RN - 08/30/2024 9:07 AM EDT [facility] reports patient was in [facility] with dx: stroke, and transferred to [facility]. [facility] home with [facility] SN PT OT ST & [facility]. Asking if pcp agreeable to follow for HHC. Please phone Marya with verbal: [phone] [facility]04-14-2025 Note REFERRING PHYSICIAN: Silvino Pearl DO. CONSULTING PSYCHOLOGIST: Matthew Gibson, PhD. REASON FOR REFERRAL: Neuropsychological exam. HISTORY OF PRESENT ILLNESS: Ms. Acuna is a 78-year-old right-handed white female admitted to [facility] from [facility] on 08/15/2024 after developing left-sided weakness and slurred speech. Initially seen at [facility] where brain CT was negative.CTA then [...] mild concussions suffered after a career in [place]. No residual deficits reported. No other BILINGUAL RECEPTIONIST injuries or illnesses. MENTAL HEALTH HISTORY: No [...] of NPO. and Mrs. Acuna live in [place]. 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 She has a high school diploma from her hometown in [place], [place]. TEST RESULTS: I used the Cognistat, [...] be determined. MATTHEW GIBSON, PhD LESLIE/SHANNON JOB#: [id number] DICTATION ID#: [id number] Digitally Signed by MATTHEW GIBSON PhD on 08/27/2024 08:[address] [facility] HospitalNqdsohre22-34-7612 Note* Exam Date Time Procedure Performing Provider Status 08/25/24 1:46 PM XR Hand and Wrist 6 Views Left Buck LAY DO; Auth (Verified) [id number] ORIGINAL EXAMINATION: 3 XRAY VIEWS OF THE [...] 08/25/2024 2:27:26 PM Ordering Provider: JACKLYN Scott [id number] Note* Exam Date Time Procedure Performing Provider Status 08/25/24 1:45 PM XR Shoulder Minimum 2 Views Left JAMAR LAY DO; Auth (Verified) [id number] ORIGINAL EXAMINATION: TWO XRAY VIEWS OF THE [...] 08/25/2024 2:26:45 PM Ordering Provider: JACKLYN Scott [id number] Note* Exam Date Time Procedure Performing Provider Status 08/25/24 1:43 PM XR Humerus Minimum 2 Views Left ROSANNEJAMAR ; Auth (Verified) [id number] ORIGINAL EXAMINATION: TWO XRAY VIEWS OF THE [...] 08/25/2024 2:26:11 PM Ordering Provider: JACKLYN Scott [id number] Note* Exam Date Time Procedure Performing Provider Status 08/18/24 3:08 PM XR Chest 1 View Contributor_system, FUJ I; Auth (Verified) [id number] ORIGINAL EXAMINATION: ONE XRAY VIEW OF THE [...] Plan noteExtracted from: Title:Clinical Document Author:EZEQUIEL TURCIOS RN-ROBOTIC MACHINE OPERATOR Date:08/16/24 Acute Inpatient Rehab Histor y [...] speech. She originally presented to [facility] with CT of the head was obtained showed no acute hemorrhage or large territory stroke. CTA showed mid right M1 occlusion however patient was not a TNK candidate. She was then transferred to a [facility] for further management. CT of head [...] feedings. Patient deemed medically stable transferred to [facility] for physical and occupational [...] with spouse, first- floor set up. Primary Ict Analyst: Self. Safe place to go: Yes. Lives [...] Rate80(AUG 15 20:06)80(AUG 15 20:06)80(AUG 15 20:06) VWS584(AUG 16 00:03)128(AUG 16 00:03)140(AUG 15 17:47) DBP76(AUG 16 00:03)76(AUG 16 00:03)80(AUG 15 17:47) 36hr Labs 08/15 1805 Blood Glucose, Vryulvwah576X Blood Glucose, Bnfvbmqdd584C Blood Glucose TSee Flowsheet Assessment/Plan Debility and [...] and it is both accurate and complete. [facility] 04-04-2025 Physical medicine and rehab Consult note INPATIENT REHAB MEDICAL CONSULT DATE OF ADMISSION: 08/16/2024 CC: Acute right basal hemorrhage HISTORY OF PRESENT ILLNESS: This is a 78-year-old female admitted to [facility] from [facility] stay 08/02 - 08/15 who has a history of CAD, DM2, atrial fibrillation and hypertension who presented to the ER after notingleft-sided weakness and slurred speech. Originally presented to [facility] where CT head was obtained showing [...] was deemed medically stable and transferred to [facility] for physical and occasional [...] Rate80(AUG 15 20:06)80(AUG 15 20:06)80(AUG 15 20:06) FNK882(AUG 16 00:03)128(AUG 16 00:03)140(AUG 15 17:47) DBP76(AUG [...] reviewed. 36hr Labs / 1805 Blood Glucose, [id number] Blood Glucose, Rxdytqvlx134P Blood Glucose TSee Flowsheet ASSESSMENT AND PLAN: [...] will follow during acute rehabilitation stay at [facility] with the [...] CATHERINE DUEÑAS on 08/17/2024 04:53 PM Tyler [id number] Physical medicine and rehab History and physical [...] speech. She originally presented to [facility] with CT of the head was obtained showed no acute hemorrhage or large territory stroke. CTA showed mid right M1 occlusion however patient was not a TNK candidate. [facility] showed [...] feedings. Patient deemed medically stable transferred to [facility] for physical and occupational [...] with spouse, first- floor set up. Primary Ict Analyst: Self. Safe place to go: Yes. Lives [...] Rate80(AUG 15 20:06)80(AUG 15 20:06)80(AUG 15 20:06) [id number](AUG 16 00:03)128(AUG 16 00:03)140(AUG 15 17:47) DBP76(AUG 16 00:03)76(AUG 16 00:03)80(AUG 15 17:47) 36hr Labs 08/15 1805 Blood Glucose, Jgfgqjvhf893H Blood Glucose, Vwntprqol187C Blood Glucose TSee Flowsheet Assessment/Plan Debility and [...] EZEQUIEL TURCIOS on 08/22/2024 05:17 AM Tyler [id number] Miscellaneous Notes* Nursing Notes - Robson Steel [...] pacing over x3-5 sessions Outcome: Ongoing Problem: RETORT FURNACE HELPER - Cognition Goal: Orientation Log - Patient [...] pacing over x3-5 sessions Outcome: Ongoing Problem: RETORT FURNACE HELPER - Cognition Goal: Orientation Log - 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 - If used longitudinal float operator, initial PEG should be changed in 6-12 months depending on tube condition. - No plans for repeat outpatient EGD at this time based on clinical status Jonnie Mccabe MD Division of Gastroenterology, Hepatology, and Nutrition Clinical Fellow PGY-4 Pager: [phone] * Plan of Care - Manisha Cheema [...] what the specific medication was. Daughter, Keagan [phone] would be able to answer questions. Catherine [...] oropharyngeal swallow function to most appropriately guide RETORT FURNACE HELPER plan of care Outcome: Met Goal: Bolus [...] readiness for diet advancement Outcome: Met Problem: RETORT FURNACE HELPER - Cognition Goal: Orientation Log - Patient [...] better assess deficits and most appropriately guide RETORT FURNACE HELPER plan of care Outcome: Met Goal: Attention: [...] of Care: 1. Diet: NPO. Advancement per team/RETORT FURNACE HELPER recommendation 2. Ordered TF: Glucerna 1.5 @ [...] readiness for diet advancement Outcome: Ongoing Problem: RETORT FURNACE HELPER - Cognition Goal: Orientation Log - Patient [...] better assess deficits and most appropriately guide RETORT FURNACE HELPER plan of care Outcome: Ongoing * Nursing Notes - Aniyah Torre RN - 08/02/2024 6:13 PM EDT [facility] a dual RN [...] change from previous assessment. Pt transferred [facility] cart accompanied by Denae ENRIQUEZ. T [...] under emergency consent. SURGEON(S): Prema Ramos MD AIR SUPPORT OPERATIONS OPERATOR(S): None ANESTHESIA: Monitored anesthesia care DESCRIPTION [...] Freeclimb 70/Serjio 7 was advanced over a [employer] microcatheter which was advanced over a synchro [...] - 08/02/2024 3:26 PM EDT Lindsay Acuna ([id number]) PRE OPERATIVE DIAGNOSIS Cerebral infarction due to [...] - Primary ANESTHESIOLOGIST Anesthesiologist: Tameka Ruth MD GRAIN PACKER: Bebo Barboza APRN-GRAIN PACKER SURGICAL STAFF Customer Care Manager: Rachell Ruffin RN Transit Operations Supervisor: Paulina Muñiz; Radha Morales COMPLICATIONS None ESTIMATED BLOOD LOSS Minimal SPECIMENS No specimen sent * No specimens in log * Prema Ramos MD August 02, 2024 3:26 PM [facility] History of Present illness Narrative* OWEN Benavides - 08/15/2024 9:01 AM EDT Care Management Discharge Note Selected Continued Care - Admitted Since 08/02/2024 Destination Coordination complete. Service Provider Services Address Phone Fax Patient Preferred [facility] [address] [place] [phone] -- -- Internal Comment last updated by OWEN Benavides 08/15/2024 0901 Report fax: [phone] Transport Request Mode of Transfer: [facility] Name of Discharge Transport Company: [employer] [facility] ETA: 08/15/2024 @ 1030 Patient medically stable for discharge per physician/medical team. Pt has neurology appointment scheduled. Pt/ to schedule appointment with PCP. Patient/Aquatics Specialist remain in agreement withthe discharge plan. BULMARO Allen Blend Technician * OWEN Benavides - 08/14/2024 3:17 [...] numbersfor RN report tomorrow morning. BULMARO Allen Blend Technician * Marybeth Ayoub - 08/14/2024 2:51 PM EDT Care Management Progress Note Transportation for discharge arranged Mode of Transfer: (P) S Name of Discharge Transport Company: (P) [employer] [facility] ETA: (P) 08/15/2024 @ 1030 Pick-up from [facility] 1032/A Destination Tyler ALVARADO [address] [facility] [address] OWEN Morrell Blend Technician Air Brake Mechanic [phone] * Jazzy Aguiar - 08/14/2024 9:47 AM [...] position Mobility Assessment/Intervention: Supine to Sit Mobility Wood Level: Supine->Sit: moderate assist (50% patient effort) Physical Assist: Supine->Sit: 2 person assist Bed Features/Set-up: Supine->Sit: Head of bed elevated, Use of bed rail Skilled Rationale: Verbal cues, Tactile cues, Hand placement, Positioning, Technique of activity Skilled Intervention/Details: Supine->Sit: Cues for technique of transfer and pt needing increased assistance for managing legs and trunk to EOB positioning Transfer Assessment/Intervention: Sit to Stand Transfer Wood Level: Sit->Stand: moderate assist (50% patient effort) [...] hand held support Stand to Sit Transfer Wood Level: Stand->Sit: moderate assist (50% patient effort) Physical Assist: Stand->Sit: 2 person assist Assistive Device: Stand->Sit: gait belt, hand held assist Skilled Rationale: Verbal cues, Tactile cues, Hand placement, Positioning, Controlled descent for sitting Skilled Intervention/Details: Stand->Sit: Cues for positioning with BSC and recliner, pt provided bilat hand held support and needing increased support for managing a controlled descent Bed-Chair Transfer Wood Level: Bed<->Chair: maximum assist (25% patient effort) [...] managing L side during transfer Toilet Transfer Wood Level: Toilet: moderate assist (50% patient effort) [...] upright gaze when standing Outcome Score(s): CURRENT [facility] Daily Activity Inpatient Short Form Putting on/Taking Off Lower Body Clothin - Total Assistance Bathin - A Lot of Assistance Toiletin - Total Assistance Putting on/Taking Off Upper Body Clothin - A Little Assistance Groomin - A Little Assistance Eatin - Total Assistance CURRENT [facility] Activity Raw Score: 11 CURRENT [facility] Activity Functional Limitation/Modifier: 70.42% Currently Impaired [...] person, Oriented to place, Oriented to situation ("[place]" "hospital" "May" "2024" "stroke") Following Commands: Follows [...] blocking Mobility Assessment/Intervention: Supine to Sit Mobility Wood Level: Supine->Sit: moderate assist (50% patient effort) [...] sitting) Transfer Assessment/Intervention: Sit to Stand Transfer Wood Level: Sit->Stand: moderate assist (50% patient effort) Physical Assist: Sit->Stand: 2 person assist Assistive Device: Sit->Stand: gait belt Skilled Rationale: Arm in arm, Patellar block, Ischial assist, Facilitate anterior shift, Full extension to upright positioning/posture, Finding/maintaining midline positioning Skilled Intervention/Details: Sit->Stand: repeat cues to avoid significant L lean with improvement last standing. x1 from EOB, x2 from BSC Stand to Sit Transfer Wood Level: Stand->Sit: moderate assist (50% patient effort) Physical Assist: Stand->Sit: 2 person assist Assistive Device: Stand->Sit: gait belt Skilled Rationale: Arm in arm, Controlled descent for sitting Skilled Intervention/Details: Stand->Sit: last trial assisted R hand to recliner arm rest and ongoing cues for wt shift to R Bed-Chair Transfer Wood Level: Bed<->Chair: maximum assist (25% patient effort) [...] Mobility Assessment/Intervention: Stairs Assessment/Intervention: Outcome Score(s): CURRENT [facility] Basic Mobility Inpatient Short Form Turning [...] with a railin - Total Assistance CURRENT [facility] Mobility Raw Score: 8 CURRENT [facility] Mobility Functional Limitation: 86.62% Impaired in [...] 10 Treating Therapist: Shaina Rosales PT, DPT [id number] 08/14/2024 Additional Details: PT Co-Eval/Treatment Information Co-evaluation/co-treatment [...] on the below outcome measures/assessment score(s) and RETORT FURNACE HELPER clinicaljudgment, discharge destination recommendation is: IPR Barriers to discharge home: 1:1 assist needed for IADL's including medication management and finances Supporting factors for discharge setting: Impaired swallow function limiting nutritional status andsafety with oral intake, Impaired cognitive skills limiting safety/insight Acute RETORT FURNACE HELPER Outcomes Tracking Communicate basic wants and needs?: [...] independent carry over. Strong family support. Ongoing RETORT FURNACE HELPER s indicated. Subjective information: Alert, present. SO referenced his notes from yesterday and reportedcarry over of exercises yesterday. Patient with zero recall Pain: Nonverbal indicator not present Precautions: Patient Safety Communication Prior to Visit: Nursing Lines/Tubes/Drains (Rehab Status): Telemetry, Tube feed Existing Precautions/Restrictions: fall Respiratory Status: O2 Sat (%): 96 % (08/14 0711) O2 Device: room air (08/14 0947) Acute RETORT FURNACE HELPER Goals Plan of Care by Tanja Cason RETORT FURNACE HELPER at 08/14/2024 2:42 PM Version 1 of [...] RoM to achieve technique. Outcome: Ongoing Problem: RETORT FURNACE HELPER - Cognition Goal: Orientation Log - Patient [...] next session: 08/14 - ongoing exercises, education RETORT FURNACE HELPER Outcomes: FOIS 2 Speech Language Pathologist: Tanja Cason RETORT FURNACE HELPER Time In: 836 Time Out: 904 Total Visit Time: 28 minutes Total Treatment Time (skilled, billable minutes): 28 minutes Non-billable assistance during session: na Assisted by during session: na PPE used during patient interaction: gloves Patient location/status at end of session: bed with head of bed elevated Patient alarms at end of session: none altered Needs in reach. RETORT FURNACE HELPER Evaluation and Treatment Time Speech Therapy - Individual 95650: 14 Swallowing Dysfunction Treatment 73897: 14 Upon discontinuation of Acute Care Speech [...] on the below outcome measures/assessment score(s) and RETORT FURNACE HELPER clinicaljudgment, discharge destination recommendation is: Inpatient Rehab Facility Barriers to discharge home: 1:1 assist needed for IADL's including medication management and finances Supporting factors for discharge setting: Impaired swallow function limiting nutritional status andsafety with oral intake, Impaired cognitive skills limiting safety/insight Acute RETORT FURNACE HELPER Outcomes Tracking Communicate basic wants and needs?: [...] O2 Device: room air (08/13 710) Acute RETORT FURNACE HELPER Goals Plan of Care by Tanja Cason RETORT FURNACE HELPER at 08/13/2024 11:10 AM Version 1 of [...] 10 reps this session. Outcome: Ongoing Problem: RETORT FURNACE HELPER - Cognition Goal: Orientation Log - Patient [...] considerations: Cognition Patient Instruction/Education comments: Role of RETORT FURNACE HELPER, presence and normalized frustration with cognitive-communicative impairments. Focused on memory this date and that patient does not recall education so perseverative questions are normal. Reviewed intermittent silent aspiration from MBS last weekand ongoing signs of dysphagia this session, will plan to coordinate timing for repeat instrumentalwith care team Plan for next session: 08/13 -fair RETORT FURNACE HELPER Outcomes: FOIS 2 Speech Language Pathologist: RIKI [...] of session: none altered Needs in reach. RETORT FURNACE HELPER Evaluation and Treatment Time Speech Therapy - Individual 11038: 12 Swallowing Dysfunction Treatment 33084: 13 Upon discontinuation of Acute Care Speech Therapy Services or patient discharge from the hospital this note represents the current Speech Therapy Discharge Summary * OWEN Benavides - 08/12/2024 3:21 PM EDT Placement Plan Expected Discharge Date: 08/14/2024 Referred Level of Care: IPR Barriers: Medical Readiness & Precertification Current Referrals and Status 1. Tyler Garcia-accepted IPR started precertification today. BULMARO Allen Blend Technician * Jazzy Aguiar - 08/12/2024 10:46 [...] sinkside Mobility Assessment/Intervention: Supine to Sit Mobility Wood Level: Supine->Sit: moderate assist (50% patient effort) [...] positioning Transfer Assessment/Intervention: Sit to Stand Transfer Wood Level: Sit->Stand: maximum assist (25% patient effort) [...] maintaining upright posture Stand to Sit Transfer Wood Level: Stand->Sit: maximum assist (25% patient effort) Physical Assist: Stand->Sit: 2 person assist Assistive Device: Stand->Sit: gait belt, hand held assist Skilled Rationale: Verbal cues, Tactile cues, Hand placement, Positioning, Controlled descent for sitting Skilled Intervention/Details: Stand->Sit: Cues for positioning with recliner and using BUEs to help with appropriate positoining of hips in chair Bed-Chair Transfer Wood Level: Bed<->Chair: maximum assist (25% patient effort) Physical Assist: Bed<->Chair: 2 person assist Assistive Device: Bed<->Chair: gait belt Skilled Rationale: Verbal cues, Tactile cues, Hand placement, Positioning, Technique of activity Skilled Intervention/Details: Bed<->Chair: x1 from EOB to recliner on R. Pt needing increasedsupport for managing L side and sequencing steps for appropriate positioning with recliner Outcome Score(s): CURRENT [facility] Daily Activity Inpatient Short Form Putting on/Taking Off Lower Body Clothin - Total Assistance Bathin - A Lot of Assistance Toiletin - Total Assistance Putting on/Taking Off Upper Body Clothin - A Lot of Assistance Groomin - A Lot of Assistance Eatin - Total Assistance [facility]RENT [facility] Activity Raw Score: 9 [facility]RENT [facility] Activity Functional Limitation/Modifier: 79.59% Currently Impaired [...] speech and L hemiplegia. She presented to [facility] and was seen on Telestroke, NIHSS [...] goal TF volume. Pt last assessed by RETORT FURNACE HELPER 08/08 with recommendations for NPO. S/p PEG [...] chips. Will also increase free water flushes. RETORT FURNACE HELPER to see pt tomorrow. Nutrition Focused Physical Exam: Nutrition Focused Physical Exam Completed?: completed Subcutaneous Fat Loss: Orbital Region (Orbital Fat Pads): WDL Cheek Region (Buccal Fat Pads): WDL Upper Arm Region (Triceps): WDL Thoracic and Lumbar Region (Ribs, Lower Back, Midaxillary Line): WDL Muscle Wasting: [place] Region (Temporalis Muscle): deferred (lac over eyebrow) [...] kg (172 lb) 06/26/24 78.9 kg (174 lb)-[facility] 05/31/24 79 kg (174 lb 2.6 oz)-[facility] 11/28/23 80.6 kg (177 lb 9.6 oz)-[facility] 09/29/23 84 kg (185 lb)-[facility] meds reviewed: Scheduled: Reviewed, includes insulin, Synthroid, [...] Needs: Weight Used: 61 kg (IBW) EEN: 7117-5930 kcal/day (25-30 kcal/kg) EPN: 73-92 g/day (1.2-1.5 g/kg) EFN: 1830 mL/day (30 mL/kg) or per primary team Malnutrition Statement: Does the patient meet criteria for malnutrition: No *Based on The Academy and ASPEN Indicators to Diagnose Malnutrition (AAIM) criteria (2012) Tianna Murray RD, LD, [facility] Pager #[phone] * Katie Ramos, PT - 08/12/2024 10:22 [...] standing. Mobility Assessment/Intervention: Supine to Sit Mobility Wood Level: Supine->Sit: moderate assist (50% patient effort) Physical Assist: Supine->Sit: 2 person assist Bed Features/Set-up: Supine->Sit: Head of bed elevated Skilled Rationale: Verbal cues, Tactile cues, Hand placement, Technique of activity Skilled Intervention/Details: Supine->Sit: verbal/tactile cues for instruction on transfer technique and mod A x 2 for LE and trunk management. Transfer Assessment/Intervention: Sit to Stand Transfer Wood Level: Sit->Stand: maximum assist (25% patient effort) Physical Assist: Sit->Stand: 2 person assist Assistive Device: Sit->Stand: gait belt Skilled Rationale: Verbal cues, Tactile cues, Hand placement, Technique of activity Skilled Intervention/Details: Sit->Stand: x2 trials with verbal/tactile cues for instruction on transfer technique, hand placement, and blocking left knee. Bed-Chair Transfer Wood Level: Bed<->Chair: maximum assist (25% patient effort) Physical Assist: Bed<->Chair: 2 person assist Assistive Device: Bed<->Chair: gait belt Skilled Rationale: Verbal cues, Tactile cues, Hand placement, Technique of activity Skilled Intervention/Details: Bed<->Chair: x1 trial from EOB to chair to the right. Verbal/tactile cues for instruction on transfer technqiue, blocking left knee. Outcome Score(s): CURRENT [facility] Basic Mobility Inpatient Short Form Turning over in bed: 2 - A Lot of Assistance Moving from lying on back to sittin - Total Assistance Moving to and from bed to chair: 1 - Total Assistance Sitting/standing from chair: 1 - Total Assistance Walk in hospital room: 1 - Total Assistance Climbing 3-5 steps with a railin - Total Assistance [facility] Mobility Raw Score: 7 [facility] Mobility Functional Limitation: 92.36% Impaired in [...] Physical Therapy Discharge Summary. * Radha Gr, BRIDGE IRONWORKER-ROBOTIC MACHINE OPERATOR - 08/11/2024 7:15 AM EDT NEUROVASCULAR STROKE SERVICE Daily Progress Note IDENTIFYING INFORMATION Lindsay Acuna MR# [id number] 08/11/2024 HISTORY OF PRESENT ILLNESS Lindsay Acuna is a 78 y.o. female with PMH significant for CAD, HTN, HLD, T2DM, Afib (on Eliquis, although patient reports she has not been taking it) who presents with L hemiplegia, slurred speech. LKW 0915 on 08/02, later found down with slurred speech and L hemiplegia. She presented to [facility] and was seen on Telestroke, NIHSS [...] 2b revascularization. INTERVAL HISTORY 08/05: Transfer to [place] MBS tomorrow 08/06: Failed MBS. Increased lopressor. [...] today 08/11 -Rate controlled on metoprolol Dysphagia: -RETORT FURNACE HELPER following -NPO, DHT + TF -Failed MBS [...] Lindsay Acuna will likely be discharged to [facility] when medically ready Radha Gr, BRIDGE IRONWORKER-ROBOTIC MACHINE OPERATOR 08/11/2024 10:17 AM VITAL SIGNS Temp: [...] for specific therapeutic recommendations, please see the embroiderer report of the speech pathologist. Examination performed [...] and neurological examinations as recorded by the BUTTON RECLAIMER repeated and confirmed. I have personally reviewed [...] tooth. Blood cx unremarkable. * Radha Gr, JASIEL-ROBOTIC MACHINE OPERATOR - 08/10/2024 7:14 AM EDT NEUROVASCULAR STROKE SERVICE Daily Progress Note IDENTIFYING INFORMATION Lindsay Acuna MR# [id number] 08/10/2024 HISTORY OF PRESENT ILLNESS Lindsay Acuna is a 78 y.o. female with PMH significant for CAD, HTN, HLD, T2DM, Afib (on Eliquis, although patient reports she has not been taking it) who presents with L hemiplegia, slurred speech. LKW 0915 on 08/02, later found down with slurred speech and L hemiplegia. She presented to [facility] and was seen on Telestroke, NIHSS [...] 2b revascularization. INTERVAL HISTORY 08/05: Transfer to [place] MBS tomorrow 08/06: Failed MBS. Increased lopressor. [...] as above -Rate controlled on metoprolol Dysphagia: -RETORT FURNACE HELPER following -NPO, DHT + TF -Failed MBS [...] Lindsay Acuna will likely be discharged to [facility] when medically ready Radha Gr, JASIEL-ROBOTIC MACHINE OPERATOR 08/10/2024 7:14 AM VITAL SIGNS Temp: [...] for specific therapeutic recommendations, please see the embroiderer report of the speech pathologist. Examination performed [...] Hepatology, and Nutrition Clinical Fellow PGY-4 Pager: [phone] For follow up questions regarding this patient 7am to 5pm, contact the IBD consults fellow or DAHLIA on Minus. [facility]--> Internal Medicine--> Gastroenterology, Hepatology, & Nutrition--> IBD Consult Service Fel Day OR IBD Consult Service DAHLIA Day For urgent/stat calls or new consults 5pm to 7am or all day on the weekend, please page the on-callGI fellow on Addya. [facility]--> Internal Medicine--> Gastroenterology, Hepatology, & Nutrition--> 1st Call Fel Miriam OR STAT/NEW GI Cons Wknd Day Cosigned by Niru Koch MD at 08/10/2024 2:11 PM EDT * OWEN Benavides - 08/09/2024 3:34 PM EDT Placement Plan Expected Discharge Date: Referred Level of Care: IPR Barriers: Medical Readiness and Precertification Current Referrals and Status 1. [facility] IPR-accepted IPR will start precertification on Monday after updated therapy notes are in. For Case Management assistance for the weekend, please contact CM for assistance as needed (8:00am-4:30pm) BASH: [phone] Maria: [phone] Johan: [phone] Ross: [phone] For Social Work assistance for the weekend, please contact for assistance as needed (8:00am - 4:30pm): BASH: [phone] Maria: [phone] Johan: [phone] Ross: [phone] * Radha Gr APRN-ROBOTIC MACHINE OPERATOR - 08/09/2024 8:07 AM EDT NEUROVASCULAR STROKE SERVICE Daily Progress Note IDENTIFYING INFORMATION Lindsay Acuna MR# [id number] 08/09/2024 HISTORY OF PRESENT ILLNESS Lindsay Acuna is a 78 y.o. female with PMH significant for CAD, HTN, HLD, T2DM, Afib (on Eliquis, although patient reports she has not been taking it) who presents with L hemiplegia, slurred speech. LKW 0915 on 08/02, later found down with slurred speech and L hemiplegia. She presented to [facility] and was seen on Telestroke, NIHSS [...] 2b revascularization. INTERVAL HISTORY 08/05: Transfer to [place] MBS tomorrow 08/06: Failed MBS. Increased lopressor. [...] as above -Rate controlled on metoprolol Dysphagia: -RETORT FURNACE HELPER following -NPO, DHT + TF -Failed MBS [...] Lindsay Acuna will likely be discharged to [facility] when medically ready Radha Gr, JASIEL-ROBOTIC MACHINE OPERATOR 08/09/2024 8:07 AM VITAL SIGNS Temp: [...] for specific therapeutic recommendations, please see the embroiderer report of the speech pathologist. Examination performed [...] on the below outcome measures/assessment score(s) and RETORT FURNACE HELPER clinicaljudgment, discharge destination recommendation is: Inpatient Rehab Facility Acute RETORT FURNACE HELPER Outcomes Tracking Communicate basic wants and needs?: [...] pressions and introduction to effortful swallow exercise. RETORT FURNACE HELPER provided education regarding recommendation of NPO given [...] constraints (transport arrived for pt's CT scan). RETORT FURNACE HELPER will follow as able. Subjective information: Patient upright in chair, at bedside. Agreeable to RETORT FURNACE HELPER session. Pain: General Pain Documentation (Adult, OB, [...] room air Flow (L/min): [3] 3 Acute RETORT FURNACE HELPER Goals Plan of Care by RIKI Penaloza [...] phsyiology, risks of aspiration pneumonia). Educated regarding RETORT FURNACE HELPER role in swallow rehab and future POC Plan for next session: 08/06: cog tx and dysphagia exercises RETORT FURNACE HELPER Outcomes: FOIS: 1 Speech Language Pathologist: RIKI Penaloza Time In: 1310 Time Out: 1330 Total Visit Time: 20 minutes Total Treatment Time (skilled, billable minutes): 20 minutes Non-billable assistance during session: NA Assisted by during session: NA PPE used during patient interaction: gloves Patient location/status at end of session: chair Patient alarms at end of session: none altered Needs in reach. RETORT FURNACE HELPER Evaluation and Treatment Time Swallowing Dysfunction Treatment 47742: 20 Upon discontinuation of Acute Care Speech [...] feedback Mobility Assessment/Intervention: Supine to Sit Mobility Wood Level: Supine->Sit: moderate assist (50% patient effort) Physical Assist: Supine->Sit: 2 person assist Bed Features/Set-up: Supine->Sit: Use of bed rail, Head of bed elevated Skilled Rationale: Sequencing, Verbal cues, Hand placement, Positioning Skilled Intervention/Details: Supine->Sit: increased time/cues Transfer Assessment/Intervention: Sit to Stand Transfer Wood Level: Sit->Stand: moderate assist (50% patient effort) Physical Assist: Sit->Stand: 2 person assist Assistive Device: Sit->Stand: gait belt, hand held assist Skilled Rationale: Positioning, Sequencing, Hand placement, Verbal cues Skilled Intervention/Details: Sit->Stand: Pt educated in sit to stand transfers x 2 attempts, one from EOB and one from chair Bed-Chair Transfer Wood Level: Bed<->Chair: maximum assist (25% patient effort) [...] Mobility Assessment/Intervention: Stairs Assessment/Intervention: Outcome Score(s): [facility] Basic Mobility Inpatient Short Form Turning [...] with a railin - Total Assistance [facility] Mobility Raw Score: 8 [facility] Mobility Functional Limitation: 86.62% Impaired in [...] positioning Mobility Assessment/Intervention: Supine to Sit Mobility Wood Level: Supine->Sit: moderate assist (50% patient effort) [...] positioning Transfer Assessment/Intervention: Sit to Stand Transfer Wood Level: Sit->Stand: moderate assist (50% patient effort) Physical Assist: Sit->Stand: 2 person assist Assistive Device: Sit->Stand: gait belt, hand held assist Skilled Rationale: Verbal cues, Tactile cues, Hand placement, Positioning, Technique of activity Skilled Intervention/Details: Sit->Stand: x1 from EOB, x1 from recliner. Cues for technique and assuming an upright posture once standing Stand to Sit Transfer Wood Level: Stand->Sit: moderate assist (50% patient effort) Physical Assist: Stand->Sit: 2 person assist Assistive Device: Stand->Sit: gait belt, hand held assist Skilled Rationale: Verbal cues, Tactile cues, Hand placement, Positioning, Controlled descent for sitting Skilled Intervention/Details: Stand->Sit: Cues for positioning with recliner and using arms to help with controlled descent into chair Bed-Chair Transfer Wood Level: Bed<->Chair: maximum assist (25% patient effort) [...] appropriately position with chair. Outcome Score(s): [facility] Daily Activity Inpatient Short Form Putting on/Taking Off Lower Body Clothin - Total Assistance Bathin - A Lot of Assistance Toiletin - Total Assistance Putting on/Taking Off Upper Body Clothin - A Lot of Assistance Groomin - A Lot of Assistance Eatin - Total Assistance [facility] Activity Raw Score: 9 CURRENT [facility] Activity Functional Limitation/Modifier: 79.59% Currently Impaired [...] Progress Note IDENTIFYING INFORMATION Lindsay Acuna MR# [id number] 08/08/2024 HISTORY OF PRESENT ILLNESS Lindsay Acuna is a 78 y.o. female with PMH significant for CAD, HTN, HLD, T2DM, Afib (on Eliquis, although patient reports she has not been taking it) who presents with L hemiplegia, slurred speech. LKW 0915 on 08/02, later found down with slurred speech and L hemiplegia. She presented to [facility] and was seen on Telestroke, NIHSS [...] 2b revascularization. INTERVAL HISTORY 08/05: Transfer [place] [facility] tomorrow [...] as above -Rate controlled on metoprolol Dysphagia: -RETORT FURNACE HELPER following -NPO, DHT + TF -Failed MBS [...] Lindsay Acuna will likely be discharged to [facility] when medically ready Bella Cardenas, JASIEL-ROBOTIC MACHINE OPERATOR 08/08/2024 2:53 PM VITAL SIGNS Temp: [...] for specific therapeutic recommendations, please see the embroiderer report of the speech pathologist. Examination performed [...] bed availability Current Referrals and Status 1. [facility] notified student confirming after call with Patient's daughter that [facility] is facility of choice. Facility reserved. AVS/DAVE [...] and patient's spouse are agreeable to [facility] as facility of choice, and Gisela is agreeable to [facility] as well. Updated SW student. Simin Resendez, RN, BSN Clinical Hardwood Flooring Specialist [facility] * Chela Hannon - 08/07/2024 2:08 PM EDT Placement Plan SOCIAL WORK ASSOCIATE met with Patient and spouse at bedside to discuss facility choice. Spouse mentioned that [facility] was first choice, though SOCIAL WORK ASSOCIATE provided update that [facility] could not accept after reviewing. SOCIAL WORK ASSOCIATE reviewed other IPR options with Spouse, who reports that [facility] would be facility of choice. Spouse discussed with daughter Gisela via phone, who is in agreement but requestsa return call. SOCIAL WORK ASSOCIATE notified CCM. Chela Snyder Social Work Student Available by Secure Chat Cosigned by OWEN Keller at 08/07/2024 2:11 PM EDT * Bella Cardenas, JASIEL-ROBOTIC MACHINE OPERATOR - 08/07/2024 6:54 AM EDT NEUROVASCULAR STROKE SERVICE Daily Progress Note IDENTIFYING INFORMATION Lindsay Acuna MR# [id number] 08/07/2024 HISTORY OF PRESENT ILLNESS Lindsay Acuna is a 78 y.o. female with PMH significant for CAD, HTN, HLD, T2DM, Afib (on Eliquis, although patient reports she has not been taking it) who presents with L hemiplegia, slurred speech. LKW 0915 on 08/02, later found down with slurred speech and L hemiplegia. She presented to [facility] and was seen on Telestroke, NIHSS [...] 2b revascularization. INTERVAL HISTORY 08/05: Transfer to [place] tomorrow [...] as above -Rate controlled on metoprolol Dysphagia: -RETORT FURNACE HELPER following -NPO, DHT + TF -Failed MBS [...] Lindsay Acuna will likely be discharged to [facility] when medically ready Bella Cardenas APRN-ROBOTIC MACHINE OPERATOR 08/07/2024 3:06 PM VITAL SIGNS Temp: [...] for specific therapeutic recommendations, please see the embroiderer report of the speech pathologist. Examination performed [...] authorization, transportation Current Referrals and Status 1. [facility]: Available 2. [facility]: Available 3. [facility]: Available (pending PEG or diet and their MD requested aspirin started before discharge) 4. [facility]: Available 5. [facility]: Unavailable, out of network 6. [facility]: Unavailable, Incorrect Level of Care 7. [facility] IPR: sent Met with patient and patient's spouse, Ike, at bedside to provide choice list. Ike called patient's daughter, Gisela Acuna, to discuss as well. Gisela requested information on private pay at [facility], messaged [facility] liaison and then provided information to Gisela. Gisela requested CM sendreferral to [facility] IPR. Plan for family to review choice list FREDRICK camargo/SW team will update patient and family regarding [facility] IPR response tomorrow morning. This CM's contact information provided to Ike Acuna and Gisela Acuna for any further questions. Simin Resendez RN, BSN Clinical Hardwood Flooring Specialist [facility] * Florinda Velasquez, PT - [...] minutes Mobility Assessment/Intervention: Supine to Sit Mobility Wood Level: Supine->Sit: moderate assist (50% patient effort) Bed Features/Set-up: Supine->Sit: Head of bed elevated, Use of bed rail Skilled Rationale: Positioning, Sequencing Skilled Intervention/Details: Supine->Sit: step by step cues for sequencingg Transfer Assessment/Intervention: Sit to Stand Transfer Wood Level: Sit->Stand: moderate assist (50% patient effort) [...] left UE during transitional movements Bed-Chair Transfer Wood Level: Bed<->Chair: moderate assist (50% patient effort) Physical Assist: Bed<->Chair: 2 person assist Assistive Device: Bed<->Chair: gait belt, hand held assist Skilled Rationale: Positioning, Hand placement, Verbal cues, Sequencing Skilled Intervention/Details: Bed<->Chair: Pt educated in bed to BSC commode transfer x 2-3 steps with cues for LE sequencing, left LE weakness requiring intermittent blocking Gait/Functional Mobility Assessment/Intervention: Gait Assessment Wood Level: Gait: (mod/max) Physical Assist: Gait: 2 [...] prevent buckling. Stairs Assessment/Intervention: Outcome Score(s): [facility] Basic Mobility Inpatient Short Form Turning [...] with a railin - Total Assistance [facility] Mobility Raw Score: 9 [facility] Mobility Functional Limitation: 81.38% Impaired in [...] the current Physical Therapy Discharge Summary. * Niemsh Balderrama [facility] - 08/06/2024 1:42 PM EDT Department of Pharmacy Admission Medication Reconciliation Note Patient: Lindsay Acuna Room/Bed: 1043/A I have reviewed the patient's home medication list with the following sources Dispense Report. The home medication list status is: complete. All changes to the home medication list have been updated in [facility]. Updated [facility] Med List: Prior to Admission Medications Prescriptions [...] with any further questions. Name: Nimesh Balderrama [facility] Phone #: [phone] Date/Time: 08/06/2024 1:42 PM Time Spent: 10 [...] noted Mobility Assessment/Intervention: Supine to Sit Mobility Wood Level: Supine->Sit: moderate assist (50% patient effort) [...] completion. Transfer Assessment/Intervention: Sit to Stand Transfer Wood Level: Sit->Stand: (x 1 trial from EOB [...] and kyphotic posture. Stand to Sit Transfer Wood Level: Stand->Sit: moderate assist (50% patient effort) Assistive Device: Stand->Sit: gait belt (Arm and arm assist.) Skilled Rationale: Cues for increased safety, Initiation and execution of task, Technique of activity, Controlled descent for sitting, Ischial assist, Arm in arm, Tactile cues, Verbal cues, Hand placement, Sequencing, Positioning Bed-Chair Transfer Wood Level: Bed<->Chair: moderate assist (50% patient effort) [...] with left LE). Functional Mobility: Functional Mobility Wood Level: Functional Mobility/Gait: (Moderate-max assistance) Physical Assist: [...] overall decreased insight/awareness intodeficits. Outcome Score(s): [facility] Daily Activity Inpatient Short Form Putting on/Taking Off Lower Body Clothin - Total Assistance Bathin - A Lot of Assistance Toiletin - Total Assistance Putting on/Taking Off Upper Body Clothin - A Lot of Assistance Groomin - A Lot of Assistance Eatin - Total Assistance ([place].) [facility] Activity Raw Score: 9 [facility] Activity Functional Limitation/Modifier: 79.59% Currently Impaired [...] Occupational Therapy Discharge Summary. * Taran Traore, JASIEL-ROBOTIC MACHINE OPERATOR - 08/06/2024 7:49 AM EDT NEUROVASCULAR STROKE SERVICE Daily Progress Note IDENTIFYING INFORMATION Lindsay Acuna MR# [id number] 08/06/2024 HISTORY OF PRESENT ILLNESS Lindsay Acuna is a 78 y.o. female with PMH significant for CAD, HTN, HLD, T2DM, Afib (on Eliquis, although patient reports she has not been taking it) who presents with L hemiplegia, slurred speech. LKW 0915 on 08/02, later found down with slurred speech and L hemiplegia. She presented to [facility] and was seen on Telestroke, NIHSS [...] 2b revascularization. INTERVAL HISTORY 08/05: Transfer to [place] MBS tomorrow 08/06: Failed MBS. Increased lopressor. [...] as above -Rate controlled on metoprolol Dysphagia: -RETORT FURNACE HELPER following -NPO, DHT + TF -Failed MBS [...] Lindsay Acuna will likely be discharged to [facility] when medically ready Taran Traore APRN-ROBOTIC MACHINE OPERATOR 08/06/2024 1:43 PM VITAL SIGNS Temp: [...] for specific therapeutic recommendations, please see the embroiderer report of the speech pathologist. Examination performed [...] Progress Note IDENTIFYING INFORMATION Lindsay Acuna MR# [id number] 08/05/2024 HISTORY OF PRESENT ILLNESS Lindsay Acuna is a 78 y.o. female with PMH significant for CAD, HTN, HLD, T2DM, Afib (on Eliquis, although patient reports she has not been taking it) who presents with L hemiplegia, slurred speech. LKW 0915 on 08/02, later found down with slurred speech and L hemiplegia. She presented to [facility] and was seen on Telestroke, NIHSS [...] 2b revascularization. INTERVAL HISTORY 08/05: Transfer to [facility] tomorrow PHYSICAL EXAM Gen: [...] as above -Rate controlled on metoprolol Dysphagia: -RETORT FURNACE HELPER following -NPO, DHT + TF -MBS tomorrow HLD, POA: -Atorvastatin 40 mg daily CAD, POA: -Hold ASA for 7 days due to ICH T2DM, POA: -SSI regular + accuchecks CKD Stage 3A, POA: Baseline Cr 1.3 -Avoid nephrotoxins, monitor Hypothyroidism, POA: -Continue home levothyroxine 75 mcg daily Disposition: Lindsay Acuna will likely be discharged to [facility] when medically ready Taran Traore APRN-ROBOTIC MACHINE OPERATOR 08/05/2024 2:19 PM VITAL SIGNS Temp: [...] on the below outcome measures/assessment score(s), and RETORT FURNACE HELPER clinical judgment, discharge destination recommendation is: Pending [...] Impaired cognitive skills limiting saf ety/insight Acute RETORT FURNACE HELPER Outcomes Tracking Communicate basic wants and needs?: [...] oropharyngeal swallow function to most appropriately guide RETORT FURNACE HELPER plan of care. Of note, patient is [...] Currentdeficits impact her safety and independence. Ongoing RETORT FURNACE HELPER services are warranted. Subjective information: Awake, alert, [...] O2 Device: room air (08/05 0830) Acute RETORT FURNACE HELPER Goals Plan of Care by Queta Gardner, RETORT FURNACE HELPER at 08/05/2024 11:49 AM Version 1 of [...] oropharyngeal swallow function to most appropriately guide RETORT FURNACE HELPER plan of care Outcome: Ongoing Problem: RETORT FURNACE HELPER - Cognition Goal: Orientation Log - Patient [...] better assess deficits and most appropriately guide RETORT FURNACE HELPER plan of care Outcome: Met Tx: Noted [...] for next session: 08/05: Good candidate; FERNANDO RETORT FURNACE HELPER Outcomes: RETORT FURNACE HELPER Outcomes / Standardized Measures Score The Orientation [...] wrist restraints, RN aware Needs in reach. RETORT FURNACE HELPER Evaluation and Treatment Time Speech Therapy - Individual 74891: 8 Swallowing Dysfunction Treatment 42218: 9 Upon discontinuation of Acute Care Speech Therapy Services or patient discharge from the hospital this note represents the current Speech Therapy Discharge Summary * Chela Hannon - 08/05/2024 10:37 AM EDT Placement Plan Expected Discharge Date: TBD Referred Level of Care: IPR Barriers: medical stability, bed availability Current Referrals and Status 1. [facility]- sent; denied (Patient is OON) 2. [facility]- sent 3. [facility]- sent 4. [facility]- sent 5. [facility]- sent 6. [facility] SOCIAL WORK ASSOCIATE met with Patient and Spouse at bedside to discuss discharge planning. Patient and spouse were agreeable to SW visit. SOCIAL WORK ASSOCIATE discussed therapy recommendations with Spouse for Patient to go to [facility] at discharge. Spouse is agreeable to a referral being sent to [facility]. Referral sent. Spouse requested to speak to SW about assessing Patient for dementia. SOCIAL WORK ASSOCIATE and bedside RN encouragedSpouse to discuss with Patient's outpatient provider. Chela Snyder, Social Work Student Available by Secure Chat Cosigned by OWNE Keller at 08/05/2024 11:22 AM EDT * Savana Leung, RD - 08/05/2024 10:10 AM EDT NUTRITION ASSESSMENT Nutrition Recommendations and Plan of Care: 1. Diet: NPO. Advancement per team/RETORT FURNACE HELPER recommendation 2. Ordered TF: Glucerna 1.5 @ [...] time. Per team, pt failed bedside swallow. RETORT FURNACE HELPER consulted for swallow eval. Past History No [...] kg (172 lb) 06/26/24 78.9 kg (174 lb)-[facility] 05/31/24 79 kg (174 lb 2.6 oz)-[facility] 11/28/23 80.6 kg (177 lb 9.6 oz)-[facility] 09/29/23 84 kg (185 lb)-[facility] Pt without significant weight change [facility]. Tmax: 97.8*F BP: (!) 173/94 Pulse (Heart [...] proximal second portion of the duodenum. BM: [facility] Urine: 725mL Skin: Raghu Score: 13 Active Wounds: Wound Sheath Site 08/02/24 1500 Right Radial (3) Wound Abrasion 08/02/24 2109 Left;Upper Face (3) Edema- None Estimated Nutrition Needs: Based on IBW (61.4kg) Estimated Kcals Needs: 8083-9681 kcals (25-30kcals/kg) Estimated Pro Needs: 74-92g Pro (1.2-1.5g/kg) Estimated Fluid Needs: Per MD Nutrition Focused Physical Exam Completed?: completed Subcutaneous Fat Loss: Orbital Region (Orbital Fat Pads): WDL Cheek Region (Buccal Fat Pads): WDL Upper Arm Region (Triceps): WDL Thoracic and Lumbar Region (Ribs, Lower Back, Midaxillary Line): WDL Muscle Wasting: [place] Region (Temporalis Muscle): deferred (lac over eyebrow) [...] (2012) ELVIRA Ho, RD, LD, CNSC Pager: [phone] * Rashad Rg MD - 08/05/2024 9:42 AM EDT 78F admitted [facility] 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 * Shanna Russ, JASIEL-ROBOTIC MACHINE OPERATOR - 08/05/2024 7:20 AM EDT NEUROCRITICAL [...] Visual richards intact to confrontation. PERRL. 3mm sow farm manager III, IV and : EOMI. No [...] aggressive pulm edema, OOB as toleratd - [id number], encourage pulmonary toileting Cards: Essential HTN HLD [...] TUBE FEEDING with meds (per DHT) - [place] Swallow Screening Result: failed=NPO Bowel regimen: - Last Bowel Movement: (prior to admission) - Senna 17.2 mg Q12H, miralax BID, suppository PRN Stress ulcer prophylaxis: - none Dysphagia - DHT placed - RETORT FURNACE HELPER following; NPO continue following, on TF - [...] not indicated DVT: subcutaneous heparin [x] Lines [place]: n/a Marina: remove Rectal tube: n/a Enteral [...] the assigned neurocritical care provider (resident, fellow, BUTTON RECLAIMER, orPA) or page/call the corresponding number below NCC1 (Beds 6520-6766): [place] # [phone], pager #[phone] NCC2 (Beds 2956-4385, 12 Nando, and overflow): [place] #: [phone], pager #[phone] * Florinda Velasquez, PT - 08/04/2024 1:36 [...] noted Mobility Assessment: Supine to Sit Mobility Wood Level: Supine->Sit: moderate assist (50% patient effort) [...] EOB Transfer Assessment: Sit to Stand Transfer Wood Level: Sit->Stand: moderate assist (50% patient effort) Physical Assist: Sit->Stand: 2 person assist Assistive Device: Sit->Stand: gait belt, hand held assist Skilled Rationale: Positioning, Sequencing, Hand placement, Verbal cues Skilled Intervention/Details: Sit->Stand: x 1 from EOB Bed-Chair Transfer Wood Level: Bed<->Chair: moderate assist (50% patient effort) Physical Assist: Bed<->Chair: 2 person assist Assistive Device: Bed<->Chair: gait belt, hand held assist Skilled Rationale: Positioning, Sequencing, Hand placement, Verbal cues Skilled Intervention/Details: Bed<->Chair: x 2-3 steps from bed to chair Gait/Functional Mobility: Stairs: Outcome Score(s): CURRENT [facility] Basic Mobility Inpatient Short Form Turning [...] with a railin - Total Assistance CURRENT [facility] Mobility Raw Score: 10 [facility]RENT [facility] Mobility Functional Limitation: 76.75% Impaired in [...] Edema: Mobility Assessment: Supine to Sit Mobility Wood Level: Supine->Sit: moderate assist (50% patient effort) Physical Assist: Supine->Sit: 2 person assist Bed Features/Set-up: Supine->Sit: Head of bed elevated Skilled Rationale: Positioning, Hand placement, Verbal cues, Technique of activity Transfer Assessment: Sit to Stand Transfer Wood Level: Sit->Stand: moderate assist (50% patient effort) Physical Assist: Sit->Stand: 2 person assist Assistive Device: Sit->Stand: gait belt, hand held assist Skilled Rationale: Positioning, Hand placement, Verbal cues, Technique of activity Stand to Sit Transfer Wood Level: Stand->Sit: moderate assist (50% patient effort) Physical Assist: Stand->Sit: 2 person assist Assistive Device: Stand->Sit: hand held assist Skilled Rationale: Positioning, Hand placement, Verbal cues, Arm in arm, Controlled descent for sitting Bed-Chair Transfer Wood Level: Bed<->Chair: moderate assist (50% patient effort) [...] assessment and plan as documented by the BUTTON RECLAIMER with my changes/additions added. Patient is a [...] ICH x 7 days - Statin - PT/OT/RETORT FURNACE HELPER evaluation Pulmonary: No acute issues, appears to [...] and other supportive care as per the BUTTON RECLAIMER note from the same day This patient [...] care services to the patient today independent ofup health system, teaching and other care providers. Management of the above was performed. My time managing this critically ill patient included review of interval history, laboratories, radiology and cons ultation reports; performing a physical examination; discussing the patient with the multi-disciplinary team and managing life sustaining therapies to prevent imminent clinical deterioration. Richard Mejia MD Neurocritical Care Attending * Balbir Mccoy, BRIDGE IRONWORKER-ROBOTIC MACHINE OPERATOR - 08/04/2024 7:44 AM EDT NEUROCRITICAL [...] Visual richards intact to confrontation. PERRL. 3mm sow farm manager III, IV and : EOMI. No [...] SpO2 >92%; wean FiO2 as tolerated - [id number], encourage pulmonary toileting Cards: Essential HTN HLD [...] NPO AND TUBE FEEDING with meds (per [facility]) - [place] Swallow Screening Result: failed=NPO Bowel regimen: - Last Bowel Movement: (prior to admission) - Senna 17.2 mg Q12H, miralax at bedtime Stress ulcer prophylaxis: - none Dysphagia - DHT placed - RETORT FURNACE HELPER following - Tube feed: Vital AF with [...] the assigned neurocritical care provider (resident, fellow, BUTTON RECLAIMER, orPA) or page/call the corresponding number below NCC1 (Beds 7879-4054): [place] # [phone], pager #[phone] NCC2 (Beds 7024-3259, 12 Nando, and overflow): [place] #: [phone], pager #[phone] * Rafael Garcia MD - 08/03/2024 2:16 PM EDT NEUROVASCULAR Consult Daily Progress Note IDENTIFYING INFORMATION Lindsay Acuna MR# [id number] 08/03/2024 HISTORY OF PRESENT ILLNESS Lindsay Acuna is a 78 y.o. female with PMH significant for CAD, HTN, HLD, T2DM, Afib (on Eliquis, although patient reports she has not been taking it) who presents with L hemiplegia, slurred speech. She was last seen normal by her at 0915, later found down with slurred speech and L hemiplegia. She presented to [facility] and was seen on Telestroke, NIHSS [...] speech and L hemiplegia. She presented to [facility] and was seen on Telestroke, NIHSS [...] workup. Delbert Kasper MD * Nohelia Oconnell, RETORT FURNACE HELPER - 08/03/2024 12:09 PM EDT Acute Care RETORT FURNACE HELPER Speech/Language/Cognitive Evaluation Best mode of Communication: spoken language (regular speech) Discharge Recommendations: Based on the below outcome measures/assessment score(s) and RETORT FURNACE HELPER clinicaljudgment, discharge destination recommendation is: (Skilled speech therapy services at next level of care) Barriers to discharge home: Cognitive impairments that impact safety and independence Supporting factors for discharge setting: Impaired swallow function limiting nutritional status andsafety with oral intake Acute RETORT FURNACE HELPER Outcomes Tracking Communicate basic wants and needs?: [...] speech and L hemiplegia. She presented to [facility] and was seen on Telestroke,NIHSS 12. [...] 0 Asthenia (A): 0 Strain (S): 0 RETORT FURNACE HELPER Outcomes / Standardized Measures Score The Orientation [...] unable to respond. Total Score: 12 Acute RETORT FURNACE HELPER Goals Plan of Care by Nohelia Oconnell RETORT FURNACE HELPER at 08/03/2024 11:25 AM Version 1 of 1 Problem: Dysphagia Goal: Ongoing Assessment - Patient will participate in ongoing assessment by accepting various PO consistency trials with appropriate participation/oral acceptance and no significant respiratory complications to determine readiness for diet advancement Outcome: Ongoing Problem: RETORT FURNACE HELPER - Cognition Goal: Orientation Log - Patient [...] better assess deficits and most appropriately guide RETORT FURNACE HELPER plan of care Outcome: Ongoing Speech Language [...] of session: bed alarm Needs in reach. RETORT FURNACE HELPER Evaluation and Treatment Time Speech Eval - Sound Production W/Lang Comp and Exp 78376: 11 Swallowing Eval 61126: 10 Upon discontinuation of Acute Care Speech [...] on the below outcome measures/assessment score(s) and RETORT FURNACE HELPER clinicaljudgment, discharge destination recommendation is: Deferred to PT/OT recomendations related to mobility Current therapy frequency recommendation in acute care: Swallow Therapy Frequency: 5 times a week Acute RETORT FURNACE HELPER Outcomes Tracking Communicate basic wants and needs?: [...] speech and L hemiplegia. She presented to [facility] and was seen on Telestroke,NIHSS 12. 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 Prior RETORT FURNACE HELPER history: No prior speech history per chart [...] and Liquids Trialed Modality Amount Ice Teaspoon, RETORT FURNACE HELPER-fed 3x Thin Teaspoon 3x Oral Phase Function [...] Patient presents with presumed pharyngeal phase impairments. [place] Swallow Screen: (administered by: ZOE) [place] Swallow Screening Screening Exclusion Criteria: none, continue with [place] Swallow Screening Cognitive Screen: Orientation: able to [...] Ok for ice chips with RN supervision. RETORT FURNACE HELPER will continue to follow for ongoing dysphagia management. Patient Education/Instruction Learners: Patient Education provided: Dysphagia recommendation risk: benefit analysis, Role of this discipline Teaching method: Verbal Education/Instruction Learner response: Needs review Learning preferences: Auditory Learning considerations: Cognition Plan for next session: 08/03: Good Prognosis, ongoing dysphagia management to determine readiness for diet advancement vs instrumental. Acute RETORT FURNACE HELPER Goals Plan of Care by RIKI Hayes at 08/03/2024 11:25 AM Version 1 of 1 Problem: Dysphagia Goal: Ongoing Assessment - Patient will participate in ongoing assessment by accepting various PO consistency trials with appropriate participation/oral acceptance and no significant respiratory complications to determine readiness for diet advancement Outcome: Ongoing Problem: RETORT FURNACE HELPER - Cognition Goal: Orientation Log - Patient [...] better assess deficits and most appropriately guide RETORT FURNACE HELPER plan of care Outcome: Ongoing Speech Language Pathologist: RIKI Hayes, BCS-S Board Certified Specialist in Swallowing and Swallowing Disorders Available via [employer] Chat Time In: 1130 Time Out: 1151 Total Visit Time: 21 minutes Total Treatment Time (skilled, billable minutes): 21 minutes Non-billable assistance during session: none Assisted by during session: Patient's PPE used during patient interaction: gloves Patient location/status at end of session: bed with head of bed elevated Patient alarms at end of session: bed alarm Needs in reach. RETORT FURNACE HELPER Evaluation and Treatment Time Speech Eval - Sound Production W/Lang Comp and Exp 23687: 11 Swallowing Eval 53456: 10 Upon discontinuation of Acute Care Speech Therapy Services or patient discharge from the hospital this note represents the current Speech Therapy Discharge Summary * Richard Mejia MD - 08/03/2024 10:30 AM EDT I have independently seen and examined the patient on 08/03/24. I agree with the history, examination, assessment and plan as documented by the BUTTON RECLAIMER with my changes/additions added. Patient is a [...] the setting of ICH - Statin - PT/OT/RETORT FURNACE HELPER evaluation Pulmonary: No acute issues, appears to [...] and other supportive care as per the BUTTON RECLAIMER note from the same day This patient [...] care services to the patient today independent ofup health system, teaching and other care providers. Management of [...] with assistance from spouse Care Management Plan SOCIAL WORK ASSOCIATE met with Patient and Spouse at bedside to complete Initial Assessment. They were agreeable to SW visit. Patient was lethargic though able to answer some short questions. Patient consented to Spouse assisting with assessment. Spouse/Patient report that Patient has never completed a HCPOA. They expressed interest, and SOCIAL WORK ASSOCIATE will follow to complete document when Patient is more alert and oriented. Spouse reports himself and Patient live in a ranch-style home with strong supports from their community, including 2 neighbors that have assisted at this time. He noted that himself and Patient recently returned from a visit to [facility] for their anniversary. Spouse reports that their 2 children will be visiting soon. SOCIAL WORK ASSOCIATE explained SW role and offered resources. Spouse [...] Name and Contact information: Ike Acuna P: [phone] Adult Child(jj), List All Adult Children: Yes Name and Contact information: Donnell Acuna P: [phone]; Nathen Acuna P: [phone] Would you like to add additional adult [...] for Advance Care Planning? : Patient Agreeable (SOCIAL WORK ASSOCIATE to follow for HCPOA completion when Patient is more alert and oriented) Medication Management Does the patient have prescription insurance coverage? : Yes Is the patient on Anticoagulation? : Yes (Per chart review, Patient is on anticoagulation but has not been taking it (does not recall the last time she took a dose)) Provider or Clinic that manages Anticoagulation?: (unspecified at this time) [facility] [address] [place] [phone] [phone] [address] Living Environment and Support System Is the patient from a facility or senior care?: No Living Environment: House ("1 bedroom ranch") [...] themselves at home? : Unable to assess Banquet Coordinator Does the patient or territory sales representative express financial concerns? : No Chela Snyder Social Work Student Available by Secure Chat Cosigned by OWEN Keller at 08/03/2024 11:20 AM EDT * Balbir Mccoy, BRIDGE IRONWORKER-ROBOTIC MACHINE OPERATOR - 08/03/2024 7:40 AM EDT NEUROCRITICAL [...] Visual richards intact to confrontation. PERRL. 3mm sow farm manager III, IV and : EOMI. No [...] SpO2 >92%; wean FiO2 as tolerated - [id number], encourage pulmonary toileting Cards: Essential HTN HLD [...] - Bowel regimen: - Last Bowel Movement: (IRON CASTER) - Senna, miralax Stress ulcer prophylaxis: - none Dysphagia - DHT placed - RETORT FURNACE HELPER following - Tube feed: Vital AF with [...] prophylaxis - rationale: post thrombectomy [x] Lines [place]: n/a Marina: inserted 08/02, (indication: strict I&O) [...] the assigned neurocritical care provider (resident, fellow, BUTTON RECLAIMER, orPA) or page/call the corresponding number below NCC1 (Beds 6053-6989): [place] # [phone], pager #[phone] NCC2 (Beds 2012-3634, 12 [place], and overflow): [place] #: [phone], pager #[phone] * [place] Caceres MD - 08/03/2024 6:00 [...] nccu Neurosurgery signing off Please page NS2 ([phone]) with questions Complexity. Hypocalcemia - Continue to [...] any questions, Name: Andreas Ga RPH Phone: [phone] Date/Time: 08/02/2024 10:57 PM * Richard Mejia MD - 08/02/2024 6:01 PM EDT I have independently seen and examined the patient on 08/02/24. I agree with the history, examination, assessment and plan as documented by the BUTTON RECLAIMER with my changes/additions added. Patient is a [...] to determine stroke burden - Statin - PT/OT/RETORT FURNACE HELPER evaluation Pulmonary: No acute issues, appears to [...] stage 3a - Maintain euvolemia GI/Nutrition: - RETORT FURNACE HELPER evaluation - Bowel regimen to prevent constipation [...] and other supportive care as per the BUTTON RECLAIMER note from the same day This patient [...] Neurocritical Care Attending [facility] note* Niru Koch MD - [...] today. Consent obtained by at bedside. - RETORT FURNACE HELPER eval: none - RD eval: none PAST [...] dependence ASSESSMENT/RECOMMENDATIONS: - primary team feels that longitudinal float operator enteric nutrition is warranted in s/o CVA. Patient is appropriate for endoscopic PEG placement. Consent obtained from at bedside. - we will tentatively plan for EGD for PEG placement 08/09 as add on case. See pre procedure recommendations below. For PEG: - Ancef ordered (1 gm if patient is <80 kg; 2 gm if patient is >80 kg) as "visual education teacher to the procedure"). - Please make NPO [...] Hepatology, and Nutrition Clinical Fellow PGY-4 Pager: [phone] For urgent/stat calls 5pm to 7am or all day on the weekend, please page the on- call GI fellow on WebExchange. IM Consult Serv [facility] --> [facility] STAT/NEW GI consults For follow up questions regarding this patient, contact the IBD consults fellow or DAHLIA on WebSoflowchange. IM Consult Serv [facility]N --> [facility] [...] and medical decisions as outlined. Need for longitudinal float operator non-oral enteric nutrition per primary team. We will facilitate this with planned PEG tube placement. Before placement, non-GI management of TF should be established to avoid delays. David Woods M.D. 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 Prema Ramos M.D. [employer] Dist[employer] Department of Neurosurgery [facility] * Taran Zamudio León, BRIDGE IRONWORKER-ROBOTIC MACHINE OPERATOR - 08/02/2024 2:44 PM EDT Neurovascular [...] speech and L hemiplegia. She presented to [facility] and was seen on Telestroke, NIHSS [...] Scales Flowsheet Row Most Recent Value Modified [place] Scale Score Premorbid (MRSS) 0 filed on [...] solution Intravenous Continuous PRN Bebo Barboza APRN- GRAIN PACKER New Bag at 08/02/24 1507 Scheduled Meds: [...] protrudes midline Motor: L hemiplegia Reflexes: Coordination: Yitzsj-go-rail intact on the R, unable to test [...] telemetry -PT, OT, Speech and social worker psychiatric consults Other problems: Complexity. Any conditions listed [...] speech and L hemiplegia. She presented to [facility] and was seen on Telestroke, NIHSS [...] Delbert Kasper MD [facility] Procedure note* Tanja Hunter, RETORT FURNACE HELPER - 08/06/2024 9:32 AM EDTAssociated Order(s): SPEECH [...] the below outcome measures/assessment score(s), MBS, and RETORT FURNACE HELPER clinical judgment, discharge destination recommendation is: IP Rehab Facility. Patient demonstrates good candidacy for discharge to: IRF. Additional supporting factors include: Impaired swallow functionlimiting nutritional status and safety with oral intake. Acute RETORT FURNACE HELPER Outcomes Tracking Communicate basic wants and needs?: [...] speech and L hemiplegia. She presented to [facility] and was seen on Telestroke, NIHSS [...] Thin Barium: teaspoon x2, straw x2 Varibar [place] Barium: straw x1 Varibar Thin Honey Barium: [...] recommend NPO and nonoral meds. Ongoing skilled RETORT FURNACE HELPER services indicated to address deficits and maximize [...] Therapeutic Interventions Met: yes, treatment indicated Acute RETORT FURNACE HELPER Goals Plan of Care by Tanja Hunter, RETORT FURNACE HELPER at 08/06/2024 9:33 AM Version 1 of 1 Problem: Dysphagia Goal: MBS - Patient will participate in Modified Barium Swallow (MBS) Study to objectively assess oropharyngeal swallow function to most appropriately guide RETORT FURNACE HELPER plan of care Outcome: Met Goal: Bolus [...] Treatment Time (skilled, billable minutes): 20 minutes RETORT FURNACE HELPER Evaluation and Treatment Time MBS/Motion Fluoroscopic Swallowing Eval 27072: 20 Speech Language Pathologist: RIKI Gonzales Time [...] end of session: none altered (RN present) RETORT FURNACE HELPER Evaluation and Treatment Time MBS/Motion Fluoroscopic Swallowing Eval 56061: 20 Upon discontinuation of Acute Care Speech Therapy Services or patient discharge from the hospital this note represents the current Speech Therapy Discharge Summary [facility] Discharge instructions* Discharge Instructions* Jhoana Casarez APRN-ROBOTIC MACHINE OPERATOR - 08/06/2024 8:38 AM EDT Please [...] you at all times. Stroke Education: visit [email or web address] What are the most common symptoms of [...] all ordered medications [x] Avoid non-prescription or ijsv-ywo-xnampop medication not cleared by your physician [x] [...] may call the neurovascular doctors office at [phone], if you have questions Mon-Fri between 8:30 am and 4:30 pm. - For off hours or the weekend you may call the office or the hospital gate operator at and ask for the stroke resident visual education teacher to be paged. - If you have any other questions or needs, please call Aniyah DOSS, RN, Stroke Nurse Navigator at [phone] Mon-Fri between 7:00am and 3:00pm. - Additional assistance may be found by reaching out to our Case Management Office at [phone]. *In the event of an Emergency: If you have a physical or psychiatric emergency call 911 or go to your local emergency department. You should also call your outpatient provider's emergency number. Other reference numbers: [facility] Intake Office at [phone]; [facility] at 705-255-6774; or Suicide Prevention Hotline at 156-953-2877. *Helpful phone numbers: Free Crisis Hotline: 2-797-131-TALK ( ) Suicide Hotline: 526.941.8990 Seniors Suicide Hotline: 670.353.9953 [facility] Youth: 185.472.1949 Mental Health of [place]: 913.981.6462 (free counseling) [facility] Access Hotline: 362-413-QHXC (005-912-0655) 24-hour crisis text hotline: Text the word "4hope" to 261-442 for crisis support. Texting this number is [...] qualify for Medicaid/public assistance: The [facility] Department of Job and Family Services can now process zayas (TANF), food (SNAP) and Medicaid Applications over the phone. Please call [phone] ([phone]) and apply over the phone or apply online at www.benefits.[place].gov. Monday-Monday 8am-12pm noon. Medication Assistance Programs [employer] members can buy 100+ common prescriptions for FREE, $3 or $6. Annual membership is $36 for individuals and $72 for families (up to 6 people, including pets). Sign up online or enroll at your nearest pharmacy! [employer], web site can provide a significant number of coupons for medications at a much lower raymundo. [place] Department of Aging The Department of Aging administers programs and services to meet the needs of older [place]. Services and resources offered per [facility] may include transportation, housekeeping, meals and nutrition, personal care, case management, safety monitoring, home medical equipment, legal services, financial planning consultant, health and wellness, education, caregiver support, respite care, etc. Call to be connected to the [facility] agency on aging serving your community or visit aging.[place].gov/find-services. Request a consultation with a community resource expert at ltssi.age.[place].gov/ [facility] Stroke Support The [facility] Stroke Support Group is for stroke survivors, friends, and family members. Meets on the Monday of each month from 6:30pm-7:30pm at [facility] ([address]; [place] [address]). Contact Chela Nolan, at [phone] or [email or web address]. If you are outside of the [place] area, contact The [place] Stroke Association at www.stroke.org or 8-070-7-STROKE or for support groups in your area. You may also refer to the Your Care after a Stroke education booklet at [email or web address]/[email or web address] for additional resources. * Medications* PATRIZIA Miner - 08/06/2024 8:38 AM EDT Know your medicines Make sure you know why you are taking each medicine. Make a master list of all your medicines. Write down the medicine names and doctors' names. Includedoses and side effects too. And write down why you take each medicine. Include all prescription qeybioh-uhi-wywcgou medicines, vitamins, and supplements. Keep this list [...] changed every 6 months. [facility] History and physical note* Balbir Hwang Nadine, BRIDGE IRONWORKER-ROBOTIC MACHINE OPERATOR - 08/02/2024 6:00 PM EDT NEUROCRITICAL CARE [...] Visual richards intact to confrontation. PERRL. 3mm sow farm manager III, IV and : EOMI. No [...] SpO2 >92%; wean FiO2 as tolerated - [id number], encourage pulmonary toileting Cards: Essential HTN HLD [...] prophylaxis - rationale: post thrombectomy [x] Lines [place]: n/a [place]: n/a Rectal tube: n/a Enteral [...] the assigned neurocritical care provider (resident, fellow, BUTTON RECLAIMER, orPA) or page/call the corresponding number below NCC1 (Beds 2442-4012): Pernell # [phone], pager #[phone] NCC2 (Beds 9989-0073, 12 Nando, and overflow): Pernell #: [phone], pager #[phone] Cosigned by Richard Mejia MD at 08/02/2024 11:14 PM EDT [facility] Nurse Note* Rachell Ruffin RN - 08/02/2024 3:13 PM EDT 9 cc air instilled in right radial TR band @ 1520. Glasses placed in bag wit label. Sent to PACU with patient on cart. documented in this [facility] Discharge summary [facility] Medical Records Department [address] [place] [address] Emergency Department Summary 08/02/24 MR#: [id number] Acct: [id number] Name: LINDSAY ACUNA Rep #:[id number] : [...] EMR. states they returned home from [facility] about 1.5-2 weeks ago, and they both had colds. He is better, but she is "on round 2." [facility] Medical History Paroxysmal atrial fibrillation with RVR [...] 71.4 H Lymph % (Auto) 17.9 L [place] % (Auto) 8.9 Eos % (Auto) 1.0 [...] on 08/02/2024 at 1250 hours. Reading Location: [facility] Head/Neck CTA 08/02/24 12:24 IMPRESSION: RIGHT CAROTID: Mild degree of calcific plaque at the origin of the right internal carotid artery. LEFT CAROTID: Mild degree of calcific plaque at the origin of the left internal carotid artery. VERTEBRALS: Dominant left vertebral artery INTRACRANIAL: Unremarkable Other impression: No significant stenosis seen. Reading Location: [place] [address] Rhythm Strip Rhythm Strip: A-fib Rate: 90 Ectopy: None EKG Initial EKG: Attestation: I personally reviewed and interpreted this EKG as follows: Interpretation: No Acute Injury Pattern, Atrial Fibrillation and Non-Specific ST Changes Management Discussion w/another healthcare provider: Plant Anatomy Teacher ([facility] stroke neurology) and Radiologist Stroke [...] min), Including time spent:, Discussing w/Patient &/or Family/Ict Analyst, Discussing w/Consultants, Arranging Admission or Transfer and [...] MD [Primary Care Provider] - Print Language: Burundian Disposition Disposition: Acute Care Hospital [facility] [place] What to do if you have Problems For any increased pain, shortness of breath, bleeding, nausea or vomiting, chestpain, or any unexpected problems, contact your Primary Care Provider. Call [facility] ([phone]) or report tothe closest Emergency Room. Call 911 if necessary. 08/02/24 1316 Cosigner Signature (if applicable): CC: Dr. Kameron Caruso MD ~ Signed [facility]03-21-2025 Radiology Diagnostic study note [facility] Imaging Services [address] [place] [address] STROKE CTA Head AND Neck W/Con MR#: [id number] Acct: [id number] Name: LINDSAY ACUNA Rep #: [id number] : 1945 F 78 From: Regulo Hargrove MD PCP: Dr. Kameron Caruso MD Status: RE G ER Study:STROKE CTA Head AND Neck W/Con Date of Exam: 08/02/24 Exam# [id number] Ordering Dr: Roby Morgan MD PROCEDURE: STROKE [...] impression: No significant stenosis seen. Reading Location: [place] [address] CC: Dr. Pieter Morgan MD; Dr. Kameron Caruso MD ~ Nanotechnologist: Signed [facility]03-21-2025 Radiology Diagnostic study note [facility] Imaging Services [address] [place] [address] [id number] STROKE Brain/Head without Cont MR#: [id number] Acct: [id number] Name: LINDSAY ACUNA Rep #: [id number] : 1945 F 78 From: Shira Cardoso MD PCP: Dr. Kameron Caruso MD Status: RE G ER Study:STROKE Brain/Head without Cont Date of Exam: 08/02/24 Exam# [id number] Ordering Dr: Roby Morgan MD EXAM: CT [...] on 08/02/2024 at 1250 hours. Reading Location: [facility] CC: Dr. Pieter Morgan MD; Dr. Kameron Caruso MD ~ Nanotechnologist: Signed [facility]02-19-2025 Telephone encounter Note* Telephone Encounter - Mj Glover APRN.CNP - 07/03/2024 12:28 PM EST The following approved medication requests have been transmitted electronically. Requested Prescriptions Signed Prescriptions Disp Refills doxycycline monohydrate (MONODOX) 100 mg capsule 56 capsule 0 Sig: Take 1 capsule by mouth two times a day for 28 days. Authorizing Provider: MJ GLOVER APRN.CNP [facility]02-19-2025 Miscellaneous Notes* Telephone Encounter - Mj Glover [...] calling: self Call patient at: on cell [phone] (home) [phone] (cell) Was an appointment scheduled: No Closing statement: Results or non-symptom based questions: Thank you for calling [facility], your call will be returned within the next business day. Katrina Coombs documented in this encounterKind[facility]02-[facility]-2025 Telephone encounter Note * Telephone Encounter - [...] calling: self Call patient at: on cell [phone] (home) [phone] (cell) Was an appointment scheduled: No Closing statement: Results or non-symptom based questions: Thank you for calling [facility], your call will be returned within the next business day. Katrina Coombs [facility]02-18-2025 Telephone encounter Note* Telephone Encounter - Katia Álvarez RN - 07/02/2024 11:57 AM EST Patient calls and is requesting Cardiology referral to be faxed to [facility]. Faxed referral as requested. Katia Álvarez RN [facility]02-18-2025 Miscellaneous Notes* Telephone Encounter - Katia Álvarez RN - 07/02/2024 11:57 AM EST Patient calls and is requesting Cardiology referral to be faxed to [facility]. Faxed referral as requested. Katia Álvarez RN documented in this encounterKindred [facility]02-17-2025 Telephone encounter Note * Telephone Encounter - Bret Arambula LPN - 07/01/2024 12:39 PM EST Patient notified of Rx, verbalizes understanding of instructions. Bret Arambula LPN [facility]02-17-2025 Miscellaneous Notes* Telephone Encounter - Bret Arambula [...] calling: self Call patient at: on cell [phone] (home) [phone] (cell) Was an appointment scheduled: Leslie Swanson documented in this encounterKindred [facility]02-17-2025 Telephone encounter Note * Telephone Encounter - [...] 7 days. Authorizing Provider: MJ GLOVER APRN.CNP [facility]02-14-2025 Telephone encounter Note* Telephone Encounter - Adenike Walton MA - 06/28/2024 3:08 PM EST Please review pt message and advise. Adenike Walton MA [facility]02-14-2025 Telephone encounter Note* Telephone Encounter - Goldie [...] calling: self Call patient at: on cell [phone] (home) [phone] (cell) Was an appointment scheduled: Leslie Swanson [facility]02-12-2025 Instructions* Patient Instructions* Emma Glasgow APRN.CNP - 06/26/2024 10:00 AM EST Recommend consult with cardiology Continue to take all medication as prescribed Get repeat thyroid labs when you get back from vacation Contact the office with preferred malaria medication Follow up in 6 months. documented in this encounterKindred [facility]02-12-2025 History of Present illness Narrative* Emma Glasgow [...] one times daily Dx: E11.29Insulin: No lancets (CloudamizeTOUCH DELICA PLUS LANCET) 30 gauge Test blood [...] APRN.GARRETT This note was partially generated using [employer] voice recognition system. Note was reviewed for accuracy. There may be minor misspellings or grammar miscues with [employer] voice recognition. documented in this encounterKindred [facility]02-12-2025 NoteHNO ID: [id number] Author: EMMA GLASGOW APRN.CNP Service: ? Author [...] hematochezia/melena. No heartburn o (more content not included)...[facility]02-10-2025 Telephone encounter Note* Telephone Encounter - Kameron Caruso MD - 06/24/2024 7:26 PM EST Noted Kameron Caruso MD [facility]02-10-2025 Miscellaneous Notes* Telephone Encounter - Kameron Caruso MD - 06/24/2024 7:26 PM EST Noted Kameron Caruso MD * Telephone Encounter - Katia Álvarez RN - 06/24/2024 1:20 PM EST Patient calls and states that she is going to be going to [facility] and will need medications for Malaria Patient does have appointment with provider tomorrow, but wanted to give provider heads up that she will be needing this. Katia Álvarez RN documented in this encounterKindred Hospital [facility]02-10-2025 Telephone encounter Note * Telephone Encounter - Katia Álvarez RN - 06/24/2024 1:20 PM EST Patient calls and states that she is going to be going to [facility] and will need medications for Malaria Patient does have appointment with provider tomorrow, but wanted to give provider heads up that she will be needing this. Katia Álvarez RN [facility]01-28-2025 Telephone encounter Note* Telephone Encounter - Naima Marshall RN - 06/11/2024 4:17 PM EST Pt called and is notified of providers results and instructions. Pt voices understanding. Naima Marshall RN [facility]01-28-2025 Miscellaneous Notes* Telephone Encounter - Naima Marshall RN - 06/11/2024 4:17 PM EST Pt called and is notified of providers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 encounter [facility] note* Diagnosis Essential hypertension, [...] unspecified type (HCC) documented in this encounter [facility] note* Diagnosis Atrial fibrillation, unspecified type (HCC)- Primary Hypothyroidism, unspecified type Need for malaria prophylaxis [facility] Diagnosis History of traveler's diarrhea- Primary Personal history of other diseases of digestive system documented in this encounter [facility] note* Diagnosis History of traveler's diarrhea Personal history of other diseases of digestive system [facility] noteNo assessment information availableWMercer [facility] Work Phone: Evaluation note* Diagnosis Acute ischemic right MCA stroke- Primary Unspecified cerebral artery occlusion with cerebral infarction Cerebrovascular accident (CVA), unspecified mechanism Renal disease (High Serum Creatinine) Unspecified disorder of kidney and ureter Type 2 diabetes mellitus with hyperglycemia Type II or unspecified type diabetes mellitus without mention of complication, not stated as uncontrolled [facility] No data available for this section [employer] Reason for referral (narrative)* Outpatient Procedure (Routine) - Pending Review Specialty Diagnoses / Procedures Referred By Contteofilo t Ref[facility] Diagnoses Atrial fibrillation, unspecified type (HCC) Procedures ECHO ECHO TTHRC R-T 2D W/WOM-MODE COMPL SPEC&COLR D Kameron Caruso MD [address] [place] [address] [facility] [place] [address] [place] [address] Referral ID Status Reason Start Date Expiration Date Visits Requested Visits Authorized [id number] Pending Review Auto-Generat ed Referral 05/31/2024 05/31/2025 1 1 * Outpatient Procedure (Routine) - New Request Specialty Diagnoses / Procedures Referred By Contteofilo t Referred To Contact [facility] Diagnoses Irregular heart beat Procedures ECG COMPLETE ECG ROUTINE ECG W/LEAST 12 LDS W/I&R Kameron Caruso MD [address] [place] [address] [facility] [place] [address] [place] [address] Referral ID Status Reason Start Date Expiration Date Visits Requested Visits Authorized [id number] New Request Auto-Generat ed Referral 05/31/2024 05/31/2025 1 1 [facility] for referral (narrative)No reason for referral information availableWMercer County Community [facility] Work Phone: Reason for visit Narrative* Auth/Cert Specialty Diagnoses / Procedures Referred By Contac t Referred To Contact Diagnoses Acute ischemic right MCA stroke Cerebrovascular Accident (Level A Ishemic Stroke) Prema Rodgers MD [address] [place] [address] Phone: tel: fax: [facility] [address] [place] [address] Referral ID Status Reason Start Date Expiration Date Visits Re quested Visits Authorized [id number] 1 1 [facility] Summary Purpose Family History No Family History Records Found Relationship Condition Age at Onset Recorded Date/T monse mother Diabetes mellitus Unknown Hypertension Unknown Psychiatric disorder Unknown grandmother Malignant neoplasm Unknown sister Disorder of thyroid Unknown Advance Directives No Advanced Directives Records FoundDocuments on File Type Date Recorded 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 Advance Directives and Living Will Power of Traffic Officer Latest Code Status on File Code Status Date Activated Date Inactivated Comments Full Code 01/09/2019 10:16 AM Latest Code Status on File Code Status Date Activated Date Inactivated Comments Full Code 10/16/2019 9:16 AM Full Code 01/09/2019 10:16 AM 01/09/2019 2:23 PM Documents on File Type Date Recorded 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 No August 02, 2024 12:46pm Date Activated [...] patient had a polyp identified by on {time:15565}. Biopsies {are/were w not:9034} taken. The patient's usual bowel pattern is {bowel pattern:91265}. Bowel movements {bowel changes:00650} . {abd pain:96528}. The patient has noted{bleeding with BM:34867}. The patient {does/do/not:79442} have a family history of colon polyps. The patient {does/do/not:65979} have a family history of colon cancer. [...] WORK September 10, 2024 5:0 0am [facility] ([facility]) October 02, 2024 9:29a m Chief Complaint [...] WORK October 01, 2024 5:00a m [facility] ([facility]) October 02, 2024 9:29a m LAB WORK [...] WORK October 01, 2024 5:00a m [facility] ([facility]) October 02, 2024 9:29a m LAB WORK [...] WORK October 01, 2024 5:00a [facility] October 02, 2024 9:29a m LAB WORK [...] WORK October 01, 2024 5:00a m [facility] ([facility]) October 02, 2024 9:29a m LAB WORK [...] WORK October 01, 2024 5:00a m [facility] ([facility]) October 02, 2024 9:29a m LAB WORK [...] and content) DATE CREATED AUTHOR 08/31/2018 [facility] ([place]) DATE CREATED AUTHOR AUTHOR'S ORGANIZ ATION 10/18/2019 [facility] DATE CREATED AUTHOR AUTHOR'S ORGANIZ ATION 08/04/2024 [facility] DATE CREATED AUTHOR AUTHOR'S ORGANIZ ATION 08/07/2024 [facility] DATE CREATED AUTHOR AUTHOR'S ORGANIZ ATION 09/01/2024 [facility] DATE CREATED AUTHOR AUTHOR'S ORGANIZ ATION 11/08/2024 [facility] DATE CREATED AUTHOR AUTHOR'S ORGANIZ ATION 02/17/[address]25 [facility] DATE CREATED AUTHOR AUTHOR'S ORGANIZ ATION 03/26/2025 [facility] Source Comments (unrecognize d section and content) In the event this informatio n is protected by the Federal Confidentiality of Alcohol and Drug Abuse Patient Records regulations: The Federal rules restrict any use of the information to criminally investigate or prosecute any alcohol or drug abuse patient.[facility] the event this information is protected by the Federal Confidentiality of Alcohol and Drug Abuse Patient Records regulations: The Federal rules restrict any use of the information to criminally investigate or prosecute any alcohol or drug abuse patient.[facility] DaytonIn the event this information is protected by the Federal Confidentiality of Alcohol and Drug Abuse Patient Records regulations: The Federal rules restrict any use of the information to criminally investigate or prosecute any alcohol or drug abuse patient.[facility] Dayton[facility] the event this information is protected by the Federal Confidentiality of Alcohol and Drug Abuse Patient Records regulations: The Federal rules restrict any use of the information to criminally investigate or prosecute any alcohol or drug abuse patient.[facility] DaytonIn the event this information is protected by the Federal Confidentiality of Alcohol and Drug Abuse Patient Records regulations: The Federal rules restrict any use of the information to criminally investigate or prosecute any alcohol or drug abuse patient.[facility] the event this information is protected by the Federal Confidentiality of Alcohol and Drug Abuse Patient Records regulations: The Federal rules restrict any use of the information to criminally investigate or prosecute any alcohol or drug abuse patient.[facility] DaytonIn the event this information is protected by the Federal Confidentiality of Alcohol and Drug Abuse Patient Records regulations: The Federal rules restrict any use of the information to criminally investigate or prosecute any alcohol or drug abuse patient.[facility] DaytonIn the event this information is protected by the Federal Confidentiality of Alcohol and Drug Abuse Patient Records regulations: The Federal rules restrict any use of the information to criminally investigate or prosecute any alcohol or drug abuse patient.[facility] DaytonIn the event this information is protected by the Federal Confidentiality of Alcohol and Drug Abuse Patient Records regulations: The Federal rules restrict any use of the information to criminally investigate or prosecute any alcohol or drug abuse patient.[facility] DaytonIn the event this information is protected by the Federal Confidentiality of Alcohol and Drug Abuse Patient Records regulations: The Federal rules restrict any use of the information to criminally investigate or prosecute any alcohol or drug abuse patient.[facility] DaytonIn the event this information is protected by the Federal Confidentiality of Alcohol and Drug Abuse Patient Records regulations: The Federal rules restrict any use of the information to criminally investigate or prosecute any alcohol or drug abuse patient.[facility] DaytonIn the event this information is protected by the Federal Confidentiality of Alcohol and Drug Abuse Patient Records regulations: The Federal rules restrict any use of the information to criminally investigate or prosecute any alcohol or drug abuse patient.[facility] DaytonIn the event this information is protected by the Federal Confidentiality of Alcohol and Drug Abuse Patient Records regulations: The Federal rules restrict any use of the information to criminally investigate or prosecute any alcohol or drug abuse patient.[facility] DaytonIn the event this information is protected by the Federal Confidentiality of Alcohol and Drug Abuse Patient Records regulations: The Federal rules restrict any use of the information to criminally investigate or prosecute any alcohol or drug abuse patient.[facility] DaytonIn the event this information is protected by the Federal Confidentiality of Alcohol and Drug Abuse Patient Records regulations: The Federal rules restrict any use of the information to criminally investigate or prosecute any alcohol or drug abuse patient.[facility] DaytonIn the event this information is protected by the Federal Confidentiality of Alcohol and Drug Abuse Patient Records regulations: The Federal rules restrict any use of the information to criminally investigate or prosecute any alcohol or drug abuse patient.[facility] DaytonIn the event this information is protected by the Federal Confidentiality of Alcohol and Drug Abuse Patient Records regulations: The Federal rules restrict any use of the information to criminally investigate or prosecute any alcohol or drug abuse patient.[facility] DaytonIn the event this information is protected by the Federal Confidentiality of Alcohol and Drug Abuse Patient Records regulations: The Federal rules restrict any use of the information to criminally investigate or prosecute any alcohol or drug abuse patient.[facility] DaytonIn the event this information is protected by the Federal Confidentiality of Alcohol and Drug Abuse Patient Records regulations: The Federal rules restrict any use of the information to criminally investigate or prosecute any alcohol or drug abuse patient.[facility] DaytonIn the event this information is protected by the Federal Confidentiality of Alcohol and Drug Abuse Patient Records regulations: The Federal rules restrict any use of the information to criminally investigate or prosecute any alcohol or drug abuse patient.[facility] DaytonIn the event this information is protected by the Federal Confidentiality of Alcohol and Drug Abuse Patient Records regulations: The Federal rules restrict any use of the information to criminally investigate or prosecute any alcohol or drug abuse patient.[facility] DaytonIn the event this information is protected by the Federal Confidentiality of Alcohol and Drug Abuse Patient Records regulations: The Federal rules restrict any use of the information to criminally investigate or prosecute any alcohol or drug abuse patient.[facility] DaytonIn the event this information is protected by the Federal Confidentiality of Alcohol and Drug Abuse Patient Records regulations: The Federal rules restrict any use of the information to criminally investigate or prosecute any alcohol or drug abuse patient.[facility] DaytonIn the event this information is protected by the Federal Confidentiality of Alcohol and Drug Abuse Patient Records regulations: The Federal rules restrict any use of the information to criminally investigate or prosecute any alcohol or drug abuse patient.[facility] DaytonIn the event this information is protected by the Federal Confidentiality of Alcohol and Drug Abuse Patient Records regulations: The Federal rules restrict any use of the information to criminally investigate or prosecute any alcohol or drug abuse patient.[facility] DaytonIn the event this information is protected by the Federal Confidentiality of Alcohol and Drug Abuse Patient Records regulations: The Federal rules restrict any use of the information to criminally investigate or prosecute any alcohol or drug abuse patient.[facility] DaytonIn the event this information is protected by the Federal Confidentiality of Alcohol and Drug Abuse Patient Records regulations: The Federal rules restrict any use of the information to criminally investigate or prosecute any alcohol or drug abuse patient.[facility] DaytonIn the event this information is protected by the Federal Confidentiality of Alcohol and Drug Abuse Patient Records regulations: The Federal rules restrict any use of the information to criminally investigate or prosecute any alcohol or drug abuse patient.[facility] Reason for Visit (unrecogniz ed section and [...] Comments request for medication Reason Comments [facility] requesting verbal agree to f ollow Care Teams (unrecognized sec tion and content) Sewer Hand Relationship Specialty Start Date End Date Kameron Caruso MD [address] [place] [address] PCP - General Family Practice 09/21/15 Sewer Hand Relationship Specialty Start Date End Date Kameron Caruso MD [address] [place] [address] PCP - General Family Practice 09/21/15 Sewer Hand Relationship Specialty Start Date End Date Kameron Caruso MD [address] [place] [address] PCP - General Family Practice 09/21/15 Sewer Hand Relationship Specialty Start Date End Date Kameron Caruso MD [address] [place] [address] PCP - General Family Practice 09/21/15 Sewer Hand Relationship Specialty Start Date End Date Kameron Caruso MD [address] [place] [address] PCP - General Family Practice 09/21/15 Sewer Hand Relationship Specialty Start Date End Date Kameron Caruso MD [address] [place] [address] PCP - General Family Practice 09/21/15 Sewer Hand Relationship Specialty Start Date End Date Kameron Caruso MD [address] [place] [address] PCP - General Family Medicine 09/21/15 Sewer Hand Relationship Specialty Start Date End Date Kameron Caruso MD [address] [place] [address] PCP - General Family Medicine 09/21/15 Sewer Hand Relationship Specialty Start Date End Date Kameron Caruso MD [address] [place] [address] PCP - General Family Medicine 09/21/15 Sewer Hand Relationship Specialty Start Date End Date Kameron Caruso MD [address] [place] [address] PCP - General Family Medicine 09/21/15 Sewer Hand Relationship Specialty Start Date End Date Kameron Caruso MD [address] [place] [address] PCP - General Family Medicine 09/21/15 Sewer Hand Relationship Specialty Start Date End Date Kameron Caruso MD [address] [place] [address] PCP - General Family Medicine 09/21/15 Sewer Hand Relationship Specialty Start Date End Date Kameron Caruso MD [address] [place] [address] PCP - General Family Medicine 09/21/15 Sewer Hand Relationship Specialty Start Date End Date Kameron Caruso MD [address] [place] [address] PCP - General Family Medicine 09/21/15 Sewer Hand Relationship Specialty Start Date End Date Kameron Caruso MD [address] [place] [address] PCP - General Family Medicine 09/21/15 Sewer Hand Relationship Specialty Start Date End Date Kameron Caruso MD [address] [place] [address] PCP - General Family Medicine 09/21/15 Emma Glasgow APRN.CNP [address] [place] [address] Network Engineer Family Medicine 04/21/24 Mj Glover APRN.ROBOTIC MACHINE OPERATOR [address] [place] [address] Network Engineer Family Medicine 04/30/24 Sewer Hand Relationship Specialty Start Date End Date Kameron Caruso MD [address] [place] [address] PCP - General Family Medicine 09/21/15 Emma Glasgow APRN.ROBOTIC MACHINE OPERATOR [address] [place] [address] Network Engineer Family Medicine 04/21/24 Mj Glover APRN.ROBOTIC MACHINE OPERATOR [address] [place] [address] Network Engineer Family Medicine 04/30/24 Sewer Hand Relationship Specialty Start Date End Date Kameron Caruso MD [address] [place] [address] PCP - General Family Medicine 09/21/15 Emma Glasgow APRN.ROBOTIC MACHINE OPERATOR [address] [place] [address] Network Engineer Family Medicine 04/21/24 Mj Glover BRIDGE IRONWORKER.ROBOTIC MACHINE OPERATOR [address] [place] [address] Network Engineer Family Medicine 04/30/24 Sewer Hand Relationship Specialty Start Date End Date Kameron Caruso MD [address] [place] [address] PCP - General Family Medicine 09/21/15 Emma Glasgow APRN.ROBOTIC MACHINE OPERATOR [address] [place] [address] Network Engineer Family Medicine 04/21/24 Mj Glover APRN.ROBOTIC MACHINE OPERATOR [address] [place] [address] Network Engineer Family Medicine 04/30/24 Sewer Hand Relationship Specialty Start Date End Date Kameron Caruso MD [address] [place] [address] PCP - General Family Medicine 09/21/15 Emma Glasgow APRN.ROBOTIC MACHINE OPERATOR [address] [place] [address] Network Engineer Family Medicine 04/21/24 Mj Glover APRN.ROBOTIC MACHINE OPERATOR [address] [place] [address] Network Engineer Family Medicine 04/30/24 Sewer Hand Relationship Specialty Start Date End Date Kameron Caruso MD [address] [place] [address] PCP - General Family Medicine 09/21/15 Emma Glasgow APRN.ROBOTIC MACHINE OPERATOR [address] [place] [address] Network Engineer Family Medicine 04/21/24 Mj Glover APRN.ROBOTIC MACHINE OPERATOR [address] [place] [address] Network Engineer Family Medicine 04/30/24 Sewer Hand Relationship Specialty Start Date End Date Kameron Caruso MD [address] [place] [address] PCP - General Family Medicine 09/21/15 Emma Glasgow APRN.ROBOTIC MACHINE OPERATOR [address] [place] [address] Network Engineer Family Medicine 04/21/24 Mj Glover APRN.ROBOTIC MACHINE OPERATOR [address] [facility] [place] [address] Network Engineer Family Medicine 04/30/24 Team Status: Active Member Role Status Dates Dr. Kameron Caruso MD Primary Care Provider Active Team Status: Inactive Member Role Status Dates Dr. Kameron Caruso MD Primary Care Provider Active Start: August 02, 2024 End: August 02, 2024 Dr. Pieter Morgan MD Emergency Provider Active Start: August 02, 2024 End: August 02, 2024 Sewer Hand Relationship Specialty Start Date End Date Kameron Caruso MD [address] [place] [address] PCP - General Family Medicine 08/03/24 Sewer Hand Relationship Specialty Start Date End Date Kameron Caruso MD [address] [facility] [place] [address] PCP - General Family Medicine 09/21/15 Emma Glasgow APRN.ROBOTIC MACHINE OPERATOR [address] [facility] [place] [address] Network Engineer Family Medicine 04/21/24 Mj Glover APRN.ROBOTIC MACHINE OPERATOR [address] [facility] [place] [address] Network Engineer Family Medicine 04/30/24 Team Status: Inactive Member [...] Active Member Role Status Dates Dr. Kameron Crauso MD Primary Care Provider Active Start: September [...] End: September 11, 2024 Bret Snyder NP, BUTTON RECLAIMER-C Attending Provider Active Start: September 11, 2024 [...] 2024 End: October 09, 2024 Bret Snyder BUTTON RECLAIMER, BUTTON RECLAIMER-C Attending Provider Active Start: October 09, 2024 [...] End: October 30, 2024 Bret Snyder NP BUTTON RECLAIMER-C Attending Provider Active Start: October 30, 2024 [...] End: October 22, 2024 Bret Snyder NP BUTTON RECLAIMER-C Attending Provider Active Start: October 22, 2024 [...] 2024 End: October 30, 2024 Bret Snyder BUTTON RECLAIMER, BUTTON RECLAIMER-C Attending Provider Active Start: October 30, 2024 [...] End: October 30, 2024 Bret Snyder NP BUTTON RECLAIMER-C Attending Provider Active Start: October 30, 2024 [...] End: September 11, 2024 Bret Snyder NP, BUTTON RECLAIMER-C Attending Provider Active Start: September 11, 2024 [...] Attending Provider Active Start: September 29, 2024 Sfaia VARGAS MD Referring Provider Active Start: September [...] 2024 End: October 09, 2024 Bret Snyder BUTTON RECLAIMER, BUTTON RECLAIMER-C Attending Provider Active Start: October 09, 2024 [...] 2024 End: October 22, 2024 Bret Snyder BUTTON RECLAIMER, BUTTON RECLAIMER-C Attending Provider Active Start: October 22, 2024 [...] 2024 End: November 20, 2024 Bret Snyder BUTTON RECLAIMER, BUTTON RECLAIMER-C Attending Provider Active Start: November 20, 2024 [...] 2024 End: November 28, 2024 Bret Snyder BUTTON RECLAIMER, BUTTON RECLAIMER-C Attending Provider Active Start: November 28, 2024 [...] End: October 22, 2024 Bret Snyder NP BUTTON RECLAIMER-C Attending physician Active Start: October 22, 2024 [...] End: November 20, 2024 Bret Snyder NP BUTTON RECLAIMER-C Attending physician Active Start: November 20, 2024 [...] End: November 28, 2024 Bret Snyder NP BUTTON RECLAIMER-C Attending physician Active Start: November 28, 2024 [...] Provider: Katia Parekh RN)[phone] (Given - Provider: Sahnna Palmer RN)[phone] (Given - Provider: Shanna Palmer [...] glucose is greater than 200mg/dl, then notify washhouse hand. And BLOOD GLUCOSE (POC DEVICE) (CANCELED) Routine, [...] 50% needed, contact pharmacy or obtain from [employer] cart ++ And glucose (GLUTOSE) 40 % [...] at 1301, Until Specified, Who to Notify: Inside Sales Manager, For all Blood Glucose LESS THAN 80 mg/dl, notify Inside Sales Manager after treatment per Hypoglycemia in Non- Adults [...] BE BASED ON THE PRIMARY CLINICAL RECORDS. [facility]. provides no warranty or guarantee of the accuracy or completeness of information in this document.
== END ==
LOC: OLS.WHLTCC 17:00
PROVIDERS: PCP Family Medicine; Referring Provider Internal Medicine; Visit Provider Internal Medicine
DX: M62.561 Muscle wasting and atrophy, not elsewhere classified, right lower leg (principal)
CPT/HCPCS: 87070; 87077; 87186; 87205

== ENCOUNTER → 2025-05-13 | Outpatient (REF) | payer MEDICARE, SELFPAY ==
--- OUTSIDE RECORDS SUMMARY | 2025-05-13 04:15 | XMS RPT_ITS | CCD ---
Author Organization [facility] Care Team Providers Care Roundsman Name Role Phone KETTY DOWNS Attending Unavailable [...] Kameron Caruso MD Primary Care Provider Светлана BONE CHAR OPERATOR.Emma TUCKER Unavailable Saurav BONE CHAR OPERATOR.Mj TUCKER Unavailable JUVENTINO ROGERS Attending Unavailable JUVENTINO ROGERS Admitting Unavailable CATA ALFRED Attending Unavailable CATA ALFRED Admitting Unavailable Dr. Kameron Caruso MD Primary Care Provider Dr. Pieter Morgan MD Emergency Provider Kameron Caruso MD Primary Care Provider Светлана BONE CHAR OPERATOR.Emma TUCKER Unavailable Unavail able KAMERON CARUSO [...] Dr. Safia Ruelas MD Attending Provider Claudio OUTREACH PROFESSIONAL-CBret Attending Provider Safia Ruelas MD Referring Provider UnavailDr. Kameron Marquez MD Primary Care Provider Safia Ruelas MD Attending Provider UnavailDr. Safia Ulloa MD Attending Provider Claudio OUTREACH PROFESSIONAL-C, Bret Attending Provider Safia Ruelas MD Referring Provider UnavailDr. Kameron Marquez MD Referring Provider [phone] Dr. Mj Benavides MD Attending Provider Dr. Kameron Caruso MD Primary Care Physician Safia Ruelas MD Attending Physician Unavail able Claudio OUTREACH PROFESSIONAL-CBret Attending Physician Dr. Safia Ruelas MD Attending Physician Safia Ruelas MD Referring Provider Alexandra CARUSO MD, DR MELO Primary Care Unavailab shital PEARL DO, SILVINO Admitting Unavailable DAE DO, SILVINO Attending Unavailable BRYON LAWSON, DR REECE Consulting Unavailab shital CORRINE DO, NANDO Consulting Unavailable SUDARSHAN BONE CHAR OPERATOR-LAMINATION OPERATOR, AMI Hwang Consulting Unavailjair GIBSON PhD, MATTHEW Zamudio Consulting Unavailable Zuly LAWSON, Dr. Melo Primary Care Physician Safia Ruelas MD Attending Physician Unavail able Claudio CASH-CBret Attending Physician Jessenia LAWSON, Dr. Baig Attending Physician [phone] Kameron Caruso Primary Care Unavailable Oleghe OLS, [...] Unavailable Elderbrock, Kameron Primary Care Unavailable Tickton OUTREACH PROFESSIONAL, Bret Attending Unavailable Oleghe OLS, Efewongbe Attending Unavailabl e Elderbrock, Kameron Primary Care Unavailable Elderbrock, Kameron Primary Care Unavailable Oleghe, Efewongbe Attending Unavailable Elderbrock, Kameron Primary Care Unavailable Mj Benavides Attending Unavailable Elderbrock, Kameron Referring Unavailable Elderbrock, Kameron Primary Care Unavailable Oleghe, Efewongbe Attending Unavailable Tickton OUTREACH PROFESSIONAL, Bret Attending Unavailable Elderbrock, Kameron Primary Care Unavailable [place]ickton OUTREACH PROFESSIONAL, Bret Attending Unavailable Elderbrock, Kameron Primary Care Unavailable Oleghe, Efewongbe Attending Unavailable Elderbrock, Kameron Primary Care Unavailable [place] OUTREACH PROFESSIONAL, Bret Attending Unavailable Elderbrock, Kameron Primary Care Unavailable [place]ick[place] OUTREACH PROFESSIONAL, Bret Attending Unavailable Elderbrock, Kameron Primary Care Unavailable Elderbrock, Kameron Primary Care Unavailable [place]ickton OUTREACH PROFESSIONAL, Bret Attending Unavailable Oleghe OLS, Efewongbe Attending [...] reactions to drug 6 Other (See Comments) [place], [place] (2 sources) Other Propensity to adverse reactions 6 Shortness Of Breath [place], [place] (20 sources) Benzocaine; Translations: [BENZOCAINE] Drug Allergy 6 Rash [facility] Work Phone: (20 sources) Cocaine; Translations: [COCAINE] Drug Allergy 9 Inverted T waves [facility] Work Phone: (20 sources) Sulfonamides (Antibiotic); Translations: [SULFA (SULFONAMIDE ANTIBIOTICS)] Propensity to adverse reactions 6 Intolerance [facility] Work Phone: (20 sources) Perfumes; Translations: [PERFUMES] Propensity to adverse reactions 6 Shortness of Breath [facility] Work Phone: (13 sources) Sulfonamides (Antibiotic) Allergy to substance 5 Unknown [facility] (15 sources) perfume; Translations: [perfume] Allergy to substance 5 Shortness of breath [facility] (1 source) Cocaine; Translations: [cocaine nasal] Drug Allergy [facility] (1 source) Codeine; Translations: [codeine] Drug Allergy Pharyngeal swelling (finding) [facility] (1 source) Sulfonamide; Translations: [sulfa drugs] Drug allergy [facility] (1 source) Benzocaine Drug Allergy 5 [facility] (1 source) Cocaine Drug Allergy 5 [facility] Repository (1 source) Sulfonamides (Antibiotic) Drug allergy (disorder) 5 [facility] Repository Medications Current Medications Medication Drug Class(es) [...] christ once daily. Take 1 tablet by [facility] once daily atovaquone 250 mg / [...] Comment on above: Take 1 tablet by [facility] once daily. Start medication 2 days [...] capsules by m outh once daily sennosides, residential 8.6 mg oral tablet (2 sources) Start: 08-09-2024 End: 08-15-2024 Start: 08-04-2024 End: 08-09-2024 triamcinolone acetonide 0.15827 mg/mg topical ointment (3 sources) Corticosteroid Start: [...] glucose is greater than 200mg/dl, then notify annual greenhouse manager. 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] Onset: 5 [...] aftercare (13 sources) 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; Translations: [regional wildlife agent (current) use of anticoagulants] 08-02-2024 Episodic Other [...] Onset: 08-15-2024 Episodic Other aftercare (1 source) regional wildlife agent (current) use of aspirin; Translations: [regional wildlife agent (current) use of aspirin] Onset: 08-15-2024 Episodic Other aftercare (1 source) regional wildlife agent (current) use of anticoagulants; Translations: [regional wildlife agent (current) use of anticoagulants] Onset: 08-15-2024 Episodic Other aftercare (1 source) regional wildlife agent (current) use of oral hypoglycemic drugs; Translations: [[facility] (current) use of oral hypoglycemic drugs] Onset: [...] spec) [#/Vol] 2.89 10*3/uL 0.83-4.51 [facility] Anion gap in Serum or Plasma Ordered By: Safia Ruelas on 03-04-2025 Anion gap [Moles/Vol] 12 mmol/L 5-15 [facility] Automated lymphocyte count a s percentage of total leukocytesOrdered By: Safia Ruelas on 03-04-2025 Lymphocytes/100 WBC Auto (Unsp spec) 32.0 % 19- [facility] BUN/creatinine ratioOrdered By: Safia Ruelas on 03-04-2025 Urea nitrogen/Creatinine [Mass ratio] 28.8 mg/mg High 10- [facility] Basophil percentageOrdered B y: Safia Ruelas on 03-04-2025 Basophils/100 WBC (Bld) 0.7 % 0-1 [facility] Carbon dioxide, total [Moles /volume] in Central venous bloodOrdered By: Safia Ruelas on 03-04-2025 CO2 [Moles/Vol] 25.6 mmol/L 21.0-32.0 [facility] Chloride assayOrdered By: Balbir Ruelas on 03-04-2025 Chloride [Moles/Vol] 104 mmol/L 98-108 [facility] Eosinophil percentageOrdered By: Safia Ruelas on 03-04-2025 Eosinophils/100 WBC (Bld) 2.1 % 0-5 [facility] Erythrocyte distribution wid th ratioOrdered By: Safia Ruelas on 03-04-2025 Erythrocyte distribution width (RBC) [Ratio] 14.5 % 11.6-14.6 [facility] Erythrocyte distribution wid th standard deviationOrdered By: Safia Ruelas on 03-04-2025 Erythrocyte distribution width (RBC) [Ratio] 50.6 fl High 35.1-43.9 [facility] Glomerular filtration rate ( GFR) estimation/1.73 sq m using serum, plasma, or whole bOrdered By: Safia Ruelas on 03-04-2025 GFR/1.73 sq M.predicted among non-blacks MDRD (S/P/Bld) [Vol rate/Area] 73 mL/min/{1.73_m2} >60 [facility] Hematocrit Auto (Bld) [Volum e fraction]Ordered By: Safia Ruelas on 03-04-2025 Hematocrit (Bld) [Volume fraction] 38.1 % 37-47 [facility] Hemoglobin measurementOrdere d By: Safia Ruelas on 03-04-2025 Hemoglobin (Bld) [Mass/Vol] 12.0 g/dL 12.0-15.0 [facility] Immature granulocytes/100 WB C Auto (Bld)Ordered By: Safia Ruelas on 03-04-2025 Immature granulocytes/100 WBC (Bld) 0.300 % 0.0-0.9 [facility] MCV (mean corpuscular volume ) determinationOrdered By: Safia Ruelas on 03-04-2025 MCV (RBC) [Entitic vol] 94.1 fL 81-99 [facility] Mean corpuscular hemoglobin (MCH) determinationOrdered By: Safia Ruelas on 03-04-2025 MCH (RBC) [Entitic mass] 29.6 pg 27.0-32.0 [facility] Monocyte percentageOrdered B y: Safia Ruelas on 03-04-2025 Monocytes/100 WBC (Bld) 8.5 % 0-10 [facility] Neutrophil percentageOrdered By: Safia Ruelas on 03-04-2025 Neutrophils/100 WBC (Bld) 56.4 % 47-70 [facility] Platelet countOrdered By: Balbir Ruelas on 03-04-2025 Platelets (Bld) [#/Vol] 246 10*3/uL 150-450 [facility] Potassium measurement (mass/ volume)Ordered By: Safia Ruelas on 03-04-2025 Potassium (Unsp spec) [Mass/Vol] 3.9 mmol/L 3.3-5.1 [facility] RBC Auto (Bld) [#/Vol]Ordere d By: Safia Ruelas on 03-04-2025 RBC (Bld) [#/Vol] 4.05 10*6/uL Low 4.2-5.4 [facility] Serum creatinine measurement (mass/volume)Ordered By: Safia Ruelas on 03-04-2025 Creatinine [Mass/Vol] 0.82 mg/dL 0.70-1.20 [facility] Serum glucose measurement (m ass/volume)Ordered By: Safia Ruelas on 03-04-2025 Glucose [Mass/Vol] 157 mg/dL High 70-99 [facility] Serum or plasma calcium dayna urement (mass/volume)Ordered By: Safia Ruelas on 03-04-2025 Calcium [Mass/Vol] 9.4 mg/dL 7.6-11.0 [facility] Serum or plasma urea nitroge n measurement (mass/volume)Ordered By: Safia Ruelas on 03-04-2025 Urea nitrogen [Mass/Vol] 24 mg/dL High 4-19 [facility] Sodium levelOrdered By: Leonides Ruelas on 03-04-2025 Sodium [Moles/Vol] 142 mmol/L 133-145 [facility] White blood cell (WBC) count Ordered By: Safia Ruelas on 03-04-2025 WBC (Bld) [#/Vol] 9.0 10*3/uL 4.4-11.0 [facility] Absolute lymphocyte countOrd ered By: Safia Ruelas on 02-25-2025 Lymphocytes Auto (Unsp spec) [#/Vol] 3.32 10*3/uL 0.83-4.51 [facility] Anion gap in Serum or Plasma Ordered By: Safia Ruelas on 02-25-2025 Anion gap [Moles/Vol] 12 mmol/L 5-15 [facility] Automated lymphocyte count a s percentage of total leukocytesOrdered By: Safia Ruelas on 02-25-2025 Lymphocytes/100 WBC Auto (Unsp spec) 36.7 % 19- [facility] BUN/creatinine ratioOrdered By: Safia Ruelas on 02-25-2025 Urea nitrogen/Creatinine [Mass ratio] 20.5 mg/mg High 10- [facility] Basophil percentageOrdered B y: Safia Ruelas on 02-25-2025 Basophils/100 WBC (Bld) 0.6 % 0-1 [facility] Carbon dioxide, total [Moles /volume] in Central venous bloodOrdered By: Safia Ruelas on 02-25-2025 CO2 [Moles/Vol] 25.9 mmol/L 21.0-32.0 [facility] Chloride assayOrdered By: Balbir Ruelas on 02-25-2025 Chloride [Moles/Vol] 103 mmol/L 98-108 [facility] Eosinophil percentageOrdered By: sherry Ruelas on 02-25-2025 Eosinophils/100 WBC (Bld) 2.2 % 0-5 [facility] Erythrocyte distribution wid th ratioOrdered By: Safia Westonmelanie on 02-25-2025 Erythrocyte distribution width (RBC) [Ratio] 14.3 % 11.6-14.6 [facility] Erythrocyte distribution wid th standard deviationOrdered By: Safia Ruelas on 02-25-2025 Erythrocyte distribution width (RBC) [Ratio] 48.5 fl High 35.1-43.9 [facility] Glomerular filtration rate ( GFR) estimation/1.73 sq m using serum, plasma, or whole bOrdered By: Safia Cheobonimelanie on 02-25-2025 GFR/1.73 sq M.predicted among non-blacks MDRD (S/P/Bld) [Vol rate/Area] 75 mL/min/{1.73_m2} >60 [facility] Hematocrit Auto (Bld) [Volum e fraction]Ordered By: Safia Ruelas on 02-25-2025 Hematocrit (Bld) [Volume fraction] 39.0 % 37-47 [facility] Hemoglobin measurementOrdere d By: Safia Ruelas on 02-25-2025 Hemoglobin (Bld) [Mass/Vol] 12.3 g/dL 12.0-15.0 [facility] Immature granulocytes/100 WB C Auto (Bld)Ordered By: Safia Cheobonimelanie on 02-25-2025 Immature granulocytes/100 WBC (Bld) 0.400 % 0.0-0.9 [facility] MCV (mean corpuscular volume ) determinationOrdered By: Safia Cheobonimelanie on 02-25-2025 MCV (RBC) [Entitic vol] 92.4 fL 81-99 [facility] Mean corpuscular hemoglobin (MCH) determinationOrdered By: Safia Ruelas on 02-25-2025 MCH (RBC) [Entitic mass] 29.1 pg 27.0-32.0 [facility] Monocyte percentageOrdered B y: Safia Ruelas on 02-25-2025 Monocytes/100 WBC (Bld) 7.7 % 0-10 [facility] Neutrophil percentageOrdered By: Safia Ruelas on 02-25-2025 Neutrophils/100 WBC (Bld) 52.4 % 47-70 [facility] Platelet countOrdered By: Balbir Ruelas on 02-25-2025 Platelets (Bld) [#/Vol] 257 10*3/uL 150-450 [facility] Potassium measurement (mass/ volume)Ordered By: Safia Ruelas on 02-25-2025 Potassium (Unsp spec) [Mass/Vol] 3.5 mmol/L 3.3-5.1 [facility] RBC Auto (Bld) [#/Vol]Ordere d By: Safia Ruelas on 02-25-2025 RBC (Bld) [#/Vol] 4.22 10*6/uL 4.2-5.4 [facility] Serum creatinine measurement (mass/volume)Ordered By: Safia Ruelas on 02-25-2025 Creatinine [Mass/Vol] 0.80 mg/dL 0.70-1.20 [facility] Serum glucose measurement (m ass/volume)Ordered By: Safia Ruelas on 02-25-2025 Glucose [Mass/Vol] 121 mg/dL High 70-99 [facility] Serum or plasma calcium dayna urement (mass/volume)Ordered By: Safia Ruelas on 02-25-2025 Calcium [Mass/Vol] 9.2 mg/dL 7.6-11.0 [facility] Serum or plasma urea nitroge n measurement (mass/volume)Ordered By: Safia Ruelas on 02-25-2025 Urea nitrogen [Mass/Vol] 16 mg/dL 4-19 [facility] Sodium levelOrdered By: Leonides jiménezradha Jessenia on 02-25-2025 Sodium [Moles/Vol] 140 mmol/L 133-145 [facility] TSH DL <= 0.005 mIU/L QnOrde red By: Safia Ruelas on 02-25-2025 TSH Qn 0.226 uIU/mL Low 0.300-4.200 [facility] White blood cell (WBC) count Ordered By: Safia Ruelas on 02-25-2025 WBC (Bld) [#/Vol] 9.0 10*3/uL 4.4-11.0 [facility] Absolute lymphocyte countOrd ered By: Safia Ruelas on 02-18-2025 Lymphocytes Auto (Unsp spec) [#/Vol] 1.78 10*3/uL 0.83-4.51 [facility] Anion gap in Serum or Plasma Ordered By: Safia Ruelas on 02-18-2025 Anion gap [Moles/Vol] 13 mmol/L 5-15 [facility] Automated lymphocyte count a s percentage of total leukocytesOrdered By: Safia Ruelas on 02-18-2025 Lymphocytes/100 WBC Auto (Unsp spec) 22.5 % 19-41 [facility] BUN/creatinine ratioOrdered By: Safia Ruelas on 02-18-2025 Urea nitrogen/Creatinine [Mass ratio] 23.7 mg/mg High 10-20 [facility] Basophil percentageOrdered B y: Safia Ruelas on 02-18-2025 Basophils/100 WBC (Bld) 0.4 % 0-1 [facility] Carbon dioxide, total [Moles /volume] in Central venous bloodOrdered By: Safia Ruelas on 02-18-2025 CO2 [Moles/Vol] 23.2 mmol/L 21.0-32.0 [facility] Chloride assayOrdered By: Balbir Ruelas on 02-18-2025 Chloride [Moles/Vol] 102 mmol/L 98-108 [facility] Eosinophil percentageOrdered By: Safia Ruelas on 02-18-2025 Eosinophils/100 WBC (Bld) 0.4 % 0-5 [facility] Erythrocyte distribution wid th ratioOrdered By: Safia Ruelas on 02-18-2025 Erythrocyte distribution width (RBC) [Ratio] 14.3 % 11.6-14.6 [facility] Erythrocyte distribution wid th standard deviationOrdered By: Safia Ruelas on 02-18-2025 Erythrocyte distribution width (RBC) [Ratio] 48.0 fl High 35.1-43.9 [facility] Glomerular filtration rate ( GFR) estimation/1.73 sq m using serum, plasma, or whole bOrdered By: Safia Ruelas on 02-18-2025 GFR/1.73 sq M.predicted among non-blacks MDRD (S/P/Bld) [Vol rate/Area] 76 mL/min/{1.73_m2} >60 [facility] Hematocrit Auto (Bld) [Volum e fraction]Ordered By: Safia Ruelas on 02-18-2025 Hematocrit (Bld) [Volume fraction] 39.0 % 37-47 [facility] Hemoglobin measurementOrdere d By: Safia Ruelas on 02-18-2025 Hemoglobin (Bld) [Mass/Vol] 12.5 g/dL 12.0-15.0 [facility] Immature granulocytes/100 WB C Auto (Bld)Ordered By: Safia Ruelas on 02-18-2025 Immature granulocytes/100 WBC (Bld) 0.300 % 0.0-0.9 [facility] MCV (mean corpuscular volume ) determinationOrdered By: Safia Ruelas on 02-18-2025 MCV (RBC) [Entitic vol] 92.2 fL 81-99 [facility] Mean corpuscular hemoglobin (MCH) determinationOrdered By: Safia Ruelas on 02-18-2025 MCH (RBC) [Entitic mass] 29.6 pg 27.0-32.0 [facility] Monocyte percentageOrdered B y: Safia Ruelas on 02-18-2025 Monocytes/100 WBC (Bld) 4.8 % 0-10 [facility] Neutrophil percentageOrdered By: Safia Ruelas on 02-18-2025 Neutrophils/100 WBC (Bld) 71.6 % High 47-70 [facility] Platelet countOrdered By: Balbir Ruelas on 02-18-2025 Platelets (Bld) [#/Vol] 263 10*3/uL 150-450 [facility] Potassium measurement (mass/ volume)Ordered By: Safia Ruelas on 02-18-2025 Potassium (Unsp spec) [Mass/Vol] 4.1 mmol/L 3.3-5.1 [facility] RBC Auto (Bld) [#/Vol]Ordere d By: Safia Ruelas on 02-18-2025 RBC (Bld) [#/Vol] 4.23 10*6/uL 4.2-5.4 [facility] Serum creatinine measurement (mass/volume)Ordered By: Safia Ruelas on 02-18-2025 Creatinine [Mass/Vol] 0.79 mg/dL 0.70-1.20 [facility] Serum glucose measurement (m ass/volume)Ordered By: Safia Ruelas on 02-18-2025 Glucose [Mass/Vol] 165 mg/dL High 70-99 [facility] Serum or plasma calcium dayna urement (mass/volume)Ordered By: Safia Ruelas on 02-18-2025 Calcium [Mass/Vol] 9.2 mg/dL 7.6-11.0 [facility] Serum or plasma urea nitroge n measurement (mass/volume)Ordered By: Safia Ruelas on 02-18-2025 Urea nitrogen [Mass/Vol] 19 mg/dL 4-19 [facility] Sodium levelOrdered By: Leonides Ruelas on 02-18-2025 Sodium [Moles/Vol] 138 mmol/L 133-145 [facility] White blood cell (WBC) count Ordered By: Balbirjean mariejosé antonio Cheoquyen on 02-18-2025 WBC (Bld) [#/Vol] 7.9 10*3/uL 4.4-11.0 [facility] Absolute lymphocyte countOrd ered By: Safia Ruelas on 02-11-2025 Lymphocytes Auto (Unsp spec) [#/Vol] 2.71 10*3/uL 0.83-4.51 [facility] Anion gap in Serum or Plasma Ordered By: Balbirjean mariejosé antonio Cheobonimelanie on 02-11-2025 Anion gap [Moles/Vol] 14 mmol/L 5-15 [facility] Automated lymphocyte count a s percentage of total leukocytesOrdered By: Safia Cheoquyen on 02-11-2025 Lymphocytes/100 WBC Auto (Unsp spec) 36.1 % 19-41 [facility] BUN/creatinine ratioOrdered By: Balbirjean mariejosé antonio Cheoquyen on 02-11-2025 Urea nitrogen/Creatinine [Mass ratio] 23.1 mg/mg High 10-20 [facility] Basophil percentageOrdered B y: Safia Ruelas on 02-11-2025 Basophils/100 WBC (Bld) 0.7 % 0-1 [facility] Carbon dioxide, total [Moles /volume] in Central venous bloodOrdered By: Safia Cheobonimelanie on 02-11-2025 CO2 [Moles/Vol] 21.6 mmol/L 21.0-32.0 [facility] Chloride assayOrdered By: Balbir randallskye Griderbonimelanie on 02-11-2025 Chloride [Moles/Vol] 103 mmol/L 98-108 [facility] Eosinophil percentageOrdered By: Safia Ruelas on 02-11-2025 Eosinophils/100 WBC (Bld) 2.0 % 0-5 [facility] Erythrocyte distribution wid th ratioOrdered By: jean mariedefianceskye Ruelas on 02-11-2025 Erythrocyte distribution width (RBC) [Ratio] 14.4 % 11.6-14.6 [facility] Erythrocyte distribution wid th standard deviationOrdered By: jean mariedefianceskye Ruelas on 02-11-2025 Erythrocyte distribution width (RBC) [Ratio] 47.5 fl High 35.1-43.9 [facility] Glomerular filtration rate ( GFR) estimation/1.73 sq m using serum, plasma, or whole bOrdered By: sherry Ruelas on 02-11-2025 GFR/1.73 sq M.predicted among non-blacks MDRD (S/P/Bld) [Vol rate/Area] 72 mL/min/{1.73_m2} >60 [facility] Hematocrit Auto (Bld) [Volum e fraction]Ordered By: Safia Ruelas on 02-11-2025 Hematocrit (Bld) [Volume fraction] 37.4 % 37-47 [facility] Hemoglobin measurementOrdere d By: jean mariedefianceskye Ruelas on 02-11-2025 Hemoglobin (Bld) [Mass/Vol] 12.4 g/dL 12.0-15.0 [facility] Immature granulocytes/100 WB C Auto (Bld)Ordered By: Safia Ruelas on 02-11-2025 Immature granulocytes/100 WBC (Bld) 0.400 % 0.0-0.9 [facility] MCV (mean corpuscular volume ) determinationOrdered By: Safia Ruelas on 02-11-2025 MCV (RBC) [Entitic vol] 90.3 fL 81-99 [facility] Mean corpuscular hemoglobin (MCH) determinationOrdered By: [facility] on 02-11-2025 MCH (RBC) [Entitic mass] 30.0 pg 27.0-32.0 [facility] Monocyte percentageOrdered B y: Safia Ruelas on 02-11-2025 Monocytes/100 WBC (Bld) 6.8 % 0-10 [facility] Neutrophil percentageOrdered By: Safia Ruelas on 02-11-2025 Neutrophils/100 WBC (Bld) 54.0 % 47-70 [facility] Platelet countOrdered By: Balbir Ruelas on 02-11-2025 Platelets (Bld) [#/Vol] 260 10*3/uL 150-450 [facility] Potassium measurement (mass/ volume)Ordered By: Safia Ruelas on 02-11-2025 Potassium (Unsp spec) [Mass/Vol] 3.6 mmol/L 3.3-5.1 [facility] [place] RBC Auto (Bld) [#/Vol]Ordere d By: Safia Ruelas on 02-11-2025 RBC (Bld) [#/Vol] 4.14 10*6/uL Low 4.2-5.4 [facility] Serum creatinine measurement (mass/volume)Ordered By: Safia Ruelas on 02-11-2025 Creatinine [Mass/Vol] 0.83 mg/dL 0.70-1.20 [facility] Serum glucose measurement (m ass/volume)Ordered By: Safia Ruelas on 02-11-2025 Glucose [Mass/Vol] 110 mg/dL High 70-99 [facility] Serum or plasma calcium dayna urement (mass/volume)Ordered By: Safia Ruelas on 02-11-2025 Calcium [Mass/Vol] 9.1 mg/dL 7.6-11.0 [facility] Serum or plasma urea nitroge n measurement (mass/volume)Ordered By: Safia Ruelas on 02-11-2025 Urea nitrogen [Mass/Vol] 19 mg/dL 4-19 [facility] [place] Sodium levelOrdered By: Leonides Ruelas on 02-11-2025 Sodium [Moles/Vol] 139 mmol/L 133-145 [facility] White blood cell (WBC) count Ordered By: Safia Ruelas on 02-11-2025 WBC (Bld) [#/Vol] 7.5 10*3/uL 4.4-11.0 [facility] Absolute lymphocyte countOrd ered By: Safia Ruelas on 02-04-2025 Lymphocytes Auto (Unsp spec) [#/Vol] 3.03 10*3/uL 0.83-4.51 [facility] [place] Anion gap in Serum or Plasma Ordered By: Safia Ruelas on 02-04-2025 Anion gap [Moles/Vol] 12 mmol/L 5-15 [facility] Automated lymphocyte count a s percentage of total leukocytesOrdered By: Safia Ruelas on 02-04-2025 Lymphocytes/100 WBC Auto (Unsp spec) 36.1 % 19-41 [facility] [place] BUN/creatinine ratioOrdered By: Safia Ruelas on 02-04-2025 Urea nitrogen/Creatinine [Mass ratio] 21.0 mg/mg High 10-20 [facility] [place] Basophil percentageOrdered B y: Safia Ruelas on 02-04-2025 Basophils/100 WBC (Bld) 0.7 % 0-1 [facility] Carbon dioxide, total [Moles /volume] in Central venous bloodOrdered By: Safia Ruelas on 02-04-2025 CO2 [Moles/Vol] 23.5 mmol/L 21.0-32.0 [facility] [place] Chloride assayOrdered By: Balbir Ruelas on 02-04-2025 Chloride [Moles/Vol] 103 mmol/L 98-108 [facility] Eosinophil percentageOrdered By: Safia Ruelas on 02-04-2025 Eosinophils/100 WBC (Bld) 2.3 % 0-5 [facility] [place] Erythrocyte distribution wid th ratioOrdered By: Safia Ruelas on 02-04-2025 Erythrocyte distribution width (RBC) [Ratio] 14.5 % 11.6-14.6 [facility] [place] Erythrocyte distribution wid th standard deviationOrdered By: sherry Ruelas on 02-04-2025 Erythrocyte distribution width (RBC) [Ratio] 47.8 fl High 35.1-43.9 [facility] [place] Glomerular filtration rate ( GFR) estimation/1.73 sq m using serum, plasma, or whole bOrdered By: Safia Ruelas on 02-04-2025 GFR/1.73 sq M.predicted among non-blacks MDRD (S/P/Bld) [Vol rate/Area] 85 mL/min/{1.73_m2} >60 [facility] [place] Hematocrit Auto (Bld) [Volum e fraction]Ordered By: Safai Westonmelanie on 02-04-2025 Hematocrit (Bld) [Volume fraction] 38.3 % 37-47 [facility] [place] Hemoglobin measurementOrdere d By: Safia Ruelas on 02-04-2025 Hemoglobin (Bld) [Mass/Vol] 12.4 g/dL 12.0-15.0 [facility] [place] Immature granulocytes/100 WB C Auto (Bld)Ordered By: jean mariejosé antonio Cheoquyen on 02-04-2025 Immature granulocytes/100 WBC (Bld) 0.400 % 0.0-0.9 [facility] [place] MCV (mean corpuscular volume ) determinationOrdered By: Balbirjean mariedefianceskye Cheobonimelanie on 02-04-2025 MCV (RBC) [Entitic vol] 90.3 fL 81-99 [facility] Mean corpuscular hemoglobin (MCH) determinationOrdered By: sherry Ruelas on 02-04-2025 MCH (RBC) [Entitic mass] 29.2 pg 27.0-32.0 [facility] [place] Monocyte percentageOrdered B y: Safia Ruelas on 02-04-2025 Monocytes/100 WBC (Bld) 7.9 % 0-10 [facility] Neutrophil percentageOrdered By: jean mariedefianceskye Ruelas on 02-04-2025 Neutrophils/100 WBC (Bld) 52.6 % 47-70 [facility] [place] Platelet countOrdered By: Balbir Ruelas on 02-04-2025 Platelets (Bld) [#/Vol] 278 10*3/uL 150-450 [facility] [place] Potassium measurement (mass/ volume)Ordered By: Safia Ruelas on 02-04-2025 Potassium (Unsp spec) [Mass/Vol] 3.4 mmol/L 3.3-5.1 [facility] [place] RBC Auto (Bld) [#/Vol]Ordere d By: Safia Ruelas on 02-04-2025 RBC (Bld) [#/Vol] 4.24 10*6/uL 4.2-5.4 [facility] Serum creatinine measurement (mass/volume)Ordered By: Safia Ruelas on 02-04-2025 Creatinine [Mass/Vol] 0.71 mg/dL 0.70-1.20 [facility] Serum glucose measurement (m ass/volume)Ordered By: Safia Griderbonimelanie on 02-04-2025 Glucose [Mass/Vol] 141 mg/dL High 70-99 [facility] Serum or plasma calcium dayna urement (mass/volume)Ordered By: Safia Ruelas on 02-04-2025 Calcium [Mass/Vol] 9.0 mg/dL 7.6-11.0 [facility] Serum or plasma urea nitroge n measurement (mass/volume)Ordered By: Safia Griderbonimelanie on 02-04-2025 Urea nitrogen [Mass/Vol] 15 mg/dL 4-19 [facility] [place] Sodium levelOrdered By: Leonides josé antonio Jessenia on 02-04-2025 Sodium [Moles/Vol] 139 mmol/L 133-145 [facility] White blood cell (WBC) count Ordered By: Safia Griderbonimelanie on 02-04-2025 WBC (Bld) [#/Vol] 8.4 10*3/uL 4.4-11.0 [facility] Absolute lymphocyte countOrd ered By: Safia Ruelas on 01-28-2025 Lymphocytes Auto (Unsp spec) [#/Vol] 3.03 10*3/uL 0.83-4.51 [facility] [place] Anion gap in Serum or Plasma Ordered By: Safia Ruelas on 01-28-2025 Anion gap [Moles/Vol] 12 mmol/L 5-15 [facility] Automated lymphocyte count a s percentage of total leukocytesOrdered By: Safia Ruelas on 01-28-2025 Lymphocytes/100 WBC Auto (Unsp spec) 36.0 % - [facility] [place] BUN/creatinine ratioOrdered By: Safia Griderbonimelanie on 01-28-2025 Urea nitrogen/Creatinine [Mass ratio] 20.0 mg/mg 10-20 [facility] [place] Basophil percentageOrdered B y: Safia Ruelas on 01-28-2025 Basophils/100 WBC (Bld) 0.6 % 0-1 [facility] Carbon dioxide, total [Moles /volume] in Central venous bloodOrdered By: Safia Ruelas on 01-28-2025 CO2 [Moles/Vol] 24.7 mmol/L 21.0-32.0 [facility] [place] Chloride assayOrdered By: Balbir randallskye Ruelas on 01-28-2025 Chloride [Moles/Vol] 103 mmol/L 98-108 [facility] Eosinophil percentageOrdered By: sherry Ruelas on 01-28-2025 Eosinophils/100 WBC (Bld) 1.8 % 0-5 [facility] [place] Erythrocyte distribution wid th ratioOrdered By: jean mariedefianceskye Ruelas on 01-28-2025 Erythrocyte distribution width (RBC) [Ratio] 14.6 % 11.6-14.6 [facility] [place] Erythrocyte distribution wid th standard deviationOrdered By: jean mariedefianceskye Ruelas on 01-28-2025 Erythrocyte distribution width (RBC) [Ratio] 48.6 fl High 35.1-43.9 [facility] [place] Glomerular filtration rate ( GFR) estimation/1.73 sq m using serum, plasma, or whole bOrdered By: Safia Ruelas on 01-28-2025 GFR/1.73 sq M.predicted among non-blacks MDRD (S/P/Bld) [Vol rate/Area] 88 mL/min/{1.73_m2} >60 [facility] [place] Hematocrit Auto (Bld) [Volum e fraction]Ordered By: Safia Ruelas on 01-28-2025 Hematocrit (Bld) [Volume fraction] 38.1 % 37-47 [facility] [place] Hemoglobin measurementOrdere d By: sherry Ruelas on 01-28-2025 Hemoglobin (Bld) [Mass/Vol] 12.3 g/dL 12.0-15.0 [facility] [place] Immature granulocytes/100 WB C Auto (Bld)Ordered By: Safia Ruelas on 01-28-2025 Immature granulocytes/100 WBC (Bld) 0.400 % 0.0-0.9 [facility] [place] MCV (mean corpuscular volume ) determinationOrdered By: Safia Ruelas on 01-28-2025 MCV (RBC) [Entitic vol] 90.7 fL 81-99 [facility] Mean corpuscular hemoglobin (MCH) determinationOrdered By: Safia Ruelas on 01-28-2025 MCH (RBC) [Entitic mass] 29.3 pg 27.0-32.0 [facility] [place] Monocyte percentageOrdered B y: Safia Ruelas on 01-28-2025 Monocytes/100 WBC (Bld) 8.2 % 0-10 [facility] Neutrophil percentageOrdered By: Safia Ruelas on 01-28-2025 Neutrophils/100 WBC (Bld) 53.0 % 47-70 [facility] [place] Platelet countOrdered By: Balbir Ruelas on 01-28-2025 Platelets (Bld) [#/Vol] 261 10*3/uL 150-450 [facility] [place] Potassium measurement (mass/ volume)Ordered By: Safia Ruelas on 01-28-2025 Potassium (Unsp spec) [Mass/Vol] 3.4 mmol/L 3.3-5.1 [facility] [place] RBC Auto (Bld) [#/Vol]Ordere d By: Safia Ruelas on 01-28-2025 RBC (Bld) [#/Vol] 4.20 10*6/uL 4.2-5.4 [facility] Serum creatinine measurement (mass/volume)Ordered By: Safia Ruelas on 01-28-2025 Creatinine [Mass/Vol] 0.66 mg/dL Low 0.70-1.20 [facility] Serum glucose measurement (m ass/volume)Ordered By: Safia Ruelas on 01-28-2025 Glucose [Mass/Vol] 130 mg/dL High 70-99 [facility] Serum or plasma calcium dayna urement (mass/volume)Ordered By: Safia Ruelas on 01-28-2025 Calcium [Mass/Vol] 9.0 mg/dL 7.6-11.0 [facility] Serum or plasma urea nitroge n measurement (mass/volume)Ordered By: Safia Ruelas on 01-28-2025 Urea nitrogen [Mass/Vol] 13 mg/dL 4-19 [facility] [place] Sodium levelOrdered By: Leonides josé antonio Jessenia on 01-28-2025 Sodium [Moles/Vol] 140 mmol/L 133-145 [facility] White blood cell (WBC) count Ordered By: Safia Ruelas on 01-28-2025 WBC (Bld) [#/Vol] 8.4 10*3/uL 4.4-11.0 [facility] Absolute lymphocyte countOrd ered By: Safia Ruelas on 01-21-2025 Lymphocytes Auto (Unsp spec) [#/Vol] 3.26 10*3/uL 0.83-4.51 [facility] [place] Anion gap in Serum or Plasma Ordered By: Safia Ruelas on 01-21-2025 Anion gap [Moles/Vol] 13 mmol/L 5-15 [facility] Automated lymphocyte count a s percentage of total leukocytesOrdered By: Safia Ruelas on 01-21-2025 Lymphocytes/100 WBC Auto (Unsp spec) 38.3 % 19-41 [facility] [place] BUN/creatinine ratioOrdered By: Safia Ruelas on 01-21-2025 Urea nitrogen/Creatinine [Mass ratio] 20.0 mg/mg 10-20 [facility] [place] Basophil percentageOrdered B y: Safia Ruelas on 01-21-2025 Basophils/100 WBC (Bld) 0.6 % 0-1 [facility] Carbon dioxide, total [Moles /volume] in Central venous bloodOrdered By: Safia Ruelas on 01-21-2025 CO2 [Moles/Vol] 22.3 mmol/L 21.0-32.0 [facility] [place] Chloride assayOrdered By: Balbir Ruelas on 01-21-2025 Chloride [Moles/Vol] 102 mmol/L 98-108 [facility] Eosinophil percentageOrdered By: Safia Ruelas on 01-21-2025 Eosinophils/100 WBC (Bld) 2.1 % 0-5 [facility] [place] Erythrocyte distribution wid th ratioOrdered By: Safia Ruelas on 01-21-2025 Erythrocyte distribution width (RBC) [Ratio] 14.4 % 11.6-14.6 [facility] [place] Erythrocyte distribution wid th standard deviationOrdered By: Safia Ruelas on 01-21-2025 Erythrocyte distribution width (RBC) [Ratio] 47.1 fl High 35.1-43.9 [facility] [place] Glomerular filtration rate ( GFR) estimation/1.73 sq m using serum, plasma, or whole bOrdered By: Safia Ruelas on 01-21-2025 GFR/1.73 sq M.predicted among non-blacks MDRD (S/P/Bld) [Vol rate/Area] 86 mL/min/{1.73_m2} >60 [facility] [place] Hematocrit Auto (Bld) [Volum e fraction]Ordered By: Safia Ruelas on 01-21-2025 Hematocrit (Bld) [Volume fraction] 37.8 % 37-47 [facility] [place] Hemoglobin measurementOrdere d By: Safia Ruelas on 01-21-2025 Hemoglobin (Bld) [Mass/Vol] 12.6 g/dL 12.0-15.0 [facility] [place] Immature granulocytes/100 WB C Auto (Bld)Ordered By: Safia Ruelas 01-21-2025 Immature granulocytes/100 WBC (Bld) 0.400 % 0.0-0.9 [facility] [place] MCV (mean corpuscular volume ) determinationOrdered By: Safia Ruelas 01-21-2025 MCV (RBC) [Entitic vol] 89.6 fL 81-99 [facility] Mean corpuscular hemoglobin (MCH) determinationOrdered By: Safia Ruelas 01-21-2025 MCH (RBC) [Entitic mass] 29.9 pg 27.0-32.0 [facility] [place] Monocyte percentageOrdered B y: Safia Ruelas on 01-21-2025 Monocytes/100 WBC (Bld) 6.9 % 0-10 [facility] Neutrophil percentageOrdered By: Safia Ruelas 01-21-2025 Neutrophils/100 WBC (Bld) 51.7 % 47-70 [facility] [place] Platelet countOrdered By: Balbir Ruelas on 01-21-2025 Platelets (Bld) [#/Vol] 280 10*3/uL 150-450 [facility] [place] Potassium measurement (mass/ volume)Ordered By: Safia Ruelas on 01-21-2025 Potassium (Unsp spec) [Mass/Vol] 3.6 mmol/L 3.3-5.1 [facility] [place] RBC Auto (Bld) [#/Vol]Ordere d By: Safia Ruelas on 01-21-2025 RBC (Bld) [#/Vol] 4.22 10*6/uL 4.2-5.4 [facility] Serum creatinine measurement (mass/volume)Ordered By: Safia Ruelas on 01-21-2025 Creatinine [Mass/Vol] 0.71 mg/dL 0.70-1.20 [facility] Serum glucose measurement (m ass/volume)Ordered By: Safia Ruelas on 01-21-2025 Glucose [Mass/Vol] 126 mg/dL High 70-99 [facility] Serum or plasma calcium dayna urement (mass/volume)Ordered By: Safia Ruelas on 01-21-2025 Calcium [Mass/Vol] 9.0 mg/dL 7.6-11.0 [facility] Serum or plasma urea nitroge n measurement (mass/volume)Ordered By: Safia Ruelas on 01-21-2025 Urea nitrogen [Mass/Vol] 14 mg/dL 4-19 [facility] [place] Sodium levelOrdered By: Leonides jiméneztadmelanie Ruelas on 01-21-2025 Sodium [Moles/Vol] 137 mmol/L 133-145 [facility] White blood cell (WBC) count Ordered By: Safia Ruelas on 01-21-2025 WBC (Bld) [#/Vol] 8.5 10*3/uL 4.4-11.0 [facility] Absolute lymphocyte countOrd ered By: Safia Ruelas on 01-14-2025 Lymphocytes Auto (Unsp spec) [#/Vol] 2.54 10*3/uL 0.83-4.51 [facility] [place] Anion gap in Serum or Plasma Ordered By: Safia Ruelas on 01-14-2025 Anion gap [Moles/Vol] 13 mmol/L 5-15 [facility] Automated lymphocyte count a s percentage of total leukocytesOrdered By: Safia Ruelas on 01-14-2025 Lymphocytes/100 WBC Auto (Unsp spec) 30.6 % 19-41 [facility] [place] BUN/creatinine ratioOrdered By: Safia Ruelas on 01-14-2025 Urea nitrogen/Creatinine [Mass ratio] 16.0 mg/mg 10-20 [facility] [place] Basophil percentageOrdered B y: Safia Ruelas on 01-14-2025 Basophils/100 WBC (Bld) 0.6 % 0-1 [facility] Carbon dioxide, total [Moles /volume] in Central venous bloodOrdered By: Safia Ruelas on 01-14-2025 CO2 [Moles/Vol] 22.8 mmol/L 21.0-32.0 [facility] [place] Chloride assayOrdered By: Balbir Ruelas on 01-14-2025 Chloride [Moles/Vol] 104 mmol/L 98-108 [facility] Eosinophil percentageOrdered By: Safia Ruelas on 01-14-2025 Eosinophils/100 WBC (Bld) 2.2 % 0-5 [facility] [place] Erythrocyte distribution wid th ratioOrdered By: Safia Ruelas on 01-14-2025 Erythrocyte distribution width (RBC) [Ratio] 14.6 % 11.6-14.6 [facility] [place] Erythrocyte distribution wid th standard deviationOrdered By: Safia Ruelas on 01-14-2025 Erythrocyte distribution width (RBC) [Ratio] 48.7 fl High 35.1-43.9 [facility] [place] Glomerular filtration rate ( GFR) estimation/1.73 sq m using serum, plasma, or whole bOrdered By: Safia Ruelas on 01-14-2025 GFR/1.73 sq M.predicted among non-blacks MDRD (S/P/Bld) [Vol rate/Area] 84 mL/min/{1.73_m2} >60 [facility] [place] Hematocrit Auto (Bld) [Volum e fraction]Ordered By: Safia Ruelas on 01-14-2025 Hematocrit (Bld) [Volume fraction] 37.6 % 37-47 [facility] [place] Hemoglobin measurementOrdere d By: Balbirjean mariejosé antonio Cheobonimelanie on 01-14-2025 Hemoglobin (Bld) [Mass/Vol] 12.1 g/dL 12.0-15.0 [facility] [place] Immature granulocytes/100 WB C Auto (Bld)Ordered By: Safia Ruelas on 01-14-2025 Immature granulocytes/100 WBC (Bld) 0.500 % 0.0-0.9 [facility] [place] MCV (mean corpuscular volume ) determinationOrdered By: Safia Ruelas on 01-14-2025 MCV (RBC) [Entitic vol] 90.8 fL 81-99 [facility] Mean corpuscular hemoglobin (MCH) determinationOrdered By: jean mariedefianceskye Ruelas on 01-14-2025 MCH (RBC) [Entitic mass] 29.2 pg 27.0-32.0 [facility] [place] Monocyte percentageOrdered B y: Safia Ruelas on 01-14-2025 Monocytes/100 WBC (Bld) 7.8 % 0-10 [facility] Neutrophil percentageOrdered By: jean mariedefianceskye Ruelas on 01-14-2025 Neutrophils/100 WBC (Bld) 58.3 % 47-70 [facility] [place] Platelet countOrdered By: Blabir randallskye Ruelas on 01-14-2025 Platelets (Bld) [#/Vol] 284 10*3/uL 150-450 [facility] [place] Potassium measurement (mass/ volume)Ordered By: Safia Ruelas on 01-14-2025 Potassium (Unsp spec) [Mass/Vol] 3.5 mmol/L 3.3-5.1 [facility] [place] RBC Auto (Bld) [#/Vol]Ordere d By: Safia Ruelas on 01-14-2025 RBC (Bld) [#/Vol] 4.14 10*6/uL Low 4.2-5.4 [facility] Serum creatinine measurement (mass/volume)Ordered By: Safia Ruelas on 01-14-2025 Creatinine [Mass/Vol] 0.73 mg/dL 0.70-1.20 [facility] Serum glucose measurement (m ass/volume)Ordered By: Safia Ruelas on 01-14-2025 Glucose [Mass/Vol] 137 mg/dL High 70-99 [facility] Serum or plasma calcium dayna urement (mass/volume)Ordered By: Safia Ruelas on 01-14-2025 Calcium [Mass/Vol] 8.8 mg/dL 7.6-11.0 [facility] Serum or plasma urea nitroge n measurement (mass/volume)Ordered By: Safia Ruelas on 01-14-2025 Urea nitrogen [Mass/Vol] 12 mg/dL 4-19 [facility] [place] Sodium levelOrdered By: Leonides jiménezradha Jessenia on 01-14-2025 Sodium [Moles/Vol] 139 mmol/L 133-145 [facility] TSH DL <= 0.005 mIU/L QnOrde red By: Safia Ruelas on 01-14-2025 TSH Qn 1.730 uIU/mL 0.300-4.200 [facility] [place] White blood cell (WBC) count Ordered By: Safia Ruelas on 01-14-2025 WBC (Bld) [#/Vol] 8.3 10*3/uL 4.4-11.0 [facility] Absolute lymphocyte countOrd ered By: Safia Ruelas on 01-07-2025 Lymphocytes Auto (Unsp spec) [#/Vol] 2.90 10*3/uL 0.83-4.51 [facility] [place] Anion gap in Serum or Plasma Ordered By: Safia Ruelas on 01-07-2025 Anion gap [Moles/Vol] 12 mmol/L 5-15 [facility] Automated lymphocyte count a s percentage of total leukocytesOrdered By: Safia Ruelas on 01-07-2025 Lymphocytes/100 WBC Auto (Unsp spec) 36.3 % 19-41 [facility] [place] BUN/creatinine ratioOrdered By: Safia Ruelas on 01-07-2025 Urea nitrogen/Creatinine [Mass ratio] 15.4 mg/mg 10-20 [facility] [place] Basophil percentageOrdered B y: Safia Ruelas on 01-07-2025 Basophils/100 WBC (Bld) 0.6 % 0-1 [facility] Carbon dioxide, total [Moles /volume] in Central venous bloodOrdered By: Safia Ruelas on 01-07-2025 CO2 [Moles/Vol] 23.2 mmol/L 21.0-32.0 [facility] [place] Chloride assayOrdered By: Balbir jean mariejosé antonio Ruelas on 01-07-2025 Chloride [Moles/Vol] 104 mmol/L 98-108 [facility] Eosinophil percentageOrdered By: jean mariedefianceskye Griderbonimelanie on 01-07-2025 Eosinophils/100 WBC (Bld) 2.3 % 0-5 [facility] [place] Erythrocyte distribution wid th ratioOrdered By: jean mariedefianceskye Ruelas on 01-07-2025 Erythrocyte distribution width (RBC) [Ratio] 14.6 % 11.6-14.6 [facility] [place] Erythrocyte distribution wid th standard deviationOrdered By: Leonidesdefianceskye Ruelas on 01-07-2025 Erythrocyte distribution width (RBC) [Ratio] 48.5 fl High 35.1-43.9 [facility] [place] Glomerular filtration rate ( GFR) estimation/1.73 sq m using serum, plasma, or whole bOrdered By: Safia Ruelas on 01-07-2025 GFR/1.73 sq M.predicted among non-blacks MDRD (S/P/Bld) [Vol rate/Area] 86 mL/min/{1.73_m2} >60 [facility] [place] Hematocrit Auto (Bld) [Volum e fraction]Ordered By: Safia Ruelas on 01-07-2025 Hematocrit (Bld) [Volume fraction] 36.6 % Low 37-47 [facility] [place] Hemoglobin measurementOrdere d By: Safia Ruelas on 01-07-2025 Hemoglobin (Bld) [Mass/Vol] 11.9 g/dL Low 12.0-15.0 [facility] [place] Immature granulocytes/100 WB C Auto (Bld)Ordered By: Safia Ruelas on 01-07-2025 Immature granulocytes/100 WBC (Bld) 0.300 % 0.0-0.9 [facility] [place] MCV (mean corpuscular volume ) determinationOrdered By: Balbirjean mariedesireeskye Griderbonimelanie on 01-07-2025 MCV (RBC) [Entitic vol] 90.6 fL 81-99 [facility] Mean corpuscular hemoglobin (MCH) determinationOrdered By: Safia Cheoquyen on 01-07-2025 MCH (RBC) [Entitic mass] 29.5 pg 27.0-32.0 [facility] [place] Monocyte percentageOrdered B y: Bandarskye Griderbonimelanie on 01-07-2025 Monocytes/100 WBC (Bld) 7.9 % 0-10 [facility] Neutrophil percentageOrdered By: Safia Cheouqyen on 01-07-2025 Neutrophils/100 WBC (Bld) 52.6 % 47-70 [facility] [place] Platelet countOrdered By: Balbir sherry Cheoquyen on 01-07-2025 Platelets (Bld) [#/Vol] 263 10*3/uL 150-450 [facility] [place] Potassium measurement (mass/ volume)Ordered By: Safia Griderbonimelanie on 01-07-2025 Potassium (Unsp spec) [Mass/Vol] 3.5 mmol/L 3.3-5.1 [facility] [place] RBC Auto (Bld) [#/Vol]Ordere d By: Balbirjean mariejosé antonio Cheoquyen on 01-07-2025 RBC (Bld) [#/Vol] 4.04 10*6/uL Low 4.2-5.4 [facility] [facility] Serum creatinine measurement (mass/volume)Ordered By: Safia Ruelas on 01-07-2025 Creatinine [Mass/Vol] 0.71 mg/dL 0.70-1.20 [facility] Serum glucose measurement (m ass/volume)Ordered By: Safia Ruelas on 01-07-2025 Glucose [Mass/Vol] 139 mg/dL High 70-99 [facility] Serum or plasma calcium dayna urement (mass/volume)Ordered By: Safia Ruelas on 01-07-2025 Calcium [Mass/Vol] 8.5 mg/dL 7.6-11.0 [facility] Serum or plasma urea nitroge n measurement (mass/volume)Ordered By: Balbirjean mariedesireeskye Griderbonimelanie on 01-07-2025 Urea nitrogen [Mass/Vol] 11 mg/dL 4- [facility] Sodium levelOrdered By: Leonides Ruelas on 01-07-2025 Sodium [Moles/Vol] 139 mmol/L 133-145 [facility] White blood cell (WBC) count Ordered By: Balbirjean mariejosé antonio Cheoquyen on 01-07-2025 WBC (Bld) [#/Vol] 8.0 10*3/uL 4.4-11.0 [facility] Absolute lymphocyte countOrd ered By: Balbirjean mariejosé antonio Cheoquyen on 12-31-2024 Lymphocytes Auto (Unsp spec) [#/Vol] 2.27 10*3/uL 0.83-4.51 [facility] Anion gap in Serum or Plasma Ordered By: Leonidesjosé antonio Cheobonimelanie on 12-31-2024 Anion gap [Moles/Vol] 14 mmol/L 5-15 [facility] Automated lymphocyte count a s percentage of total leukocytesOrdered By: Safia Ruelas on 12-31-2024 Lymphocytes/100 WBC Auto (Unsp spec) 32.9 % 19-41 [facility] BUN/creatinine ratioOrdered By: Leonidesdesireeskye Griderbonimelanie on 12-31-2024 Urea nitrogen/Creatinine [Mass ratio] 15.0 mg/mg 10-20 [facility] Basophil percentageOrdered B y: Safia Cheobonimelanie on 12-31-2024 Basophils/100 WBC (Bld) 0.6 % 0-1 [facility] Carbon dioxide, total [Moles /volume] in Central venous bloodOrdered By: Balbirjean mariejosé antonio Cheobonimelanie on 12-31-2024 CO2 [Moles/Vol] 22.1 mmol/L 21.0-32.0 [facility] Chloride assayOrdered By: Balbri jean mariejosé antonio Griderbonimelanie on 12-31-2024 Chloride [Moles/Vol] 103 mmol/L 98-108 [facility] Eosinophil percentageOrdered By: Leonidesdesireeskye Griderbonimelanie on 12-31-2024 Eosinophils/100 WBC (Bld) 3.2 % 0-5 [facility] Erythrocyte distribution wid th ratioOrdered By: Safia Ruelas on 12-31-2024 Erythrocyte distribution width (RBC) [Ratio] 14.6 % 11.6-14.6 [facility] Erythrocyte distribution wid th standard deviationOrdered By: Safia Ruelas on 12-31-2024 Erythrocyte distribution width (RBC) [Ratio] 48.9 fl High 35.1-43.9 [facility] Glomerular filtration rate ( GFR) estimation/1.73 sq m using serum, plasma, or whole bOrdered By: Safia Ruelas on 12-31-2024 GFR/1.73 sq M.predicted among non-blacks MDRD (S/P/Bld) [Vol rate/Area] 88 mL/min/{1.73_m2} >60 [facility] Hematocrit Auto (Bld) [Volum e fraction]Ordered By: Leonidesdefianceskye Ruelas on 12-31-2024 Hematocrit (Bld) [Volume fraction] 36.8 % Low 37-47 [facility] [place] Hemoglobin A1c percentageOrd ered By: Safia Ruelas on 12-31-2024 HbA1c (Bld) [Mass fraction] 6.5 % High <5.7 [facility] [place] Hemoglobin measurementOrdere d By: Safia Ruelas on 12-31-2024 Hemoglobin (Bld) [Mass/Vol] 11.8 g/dL Low 12.0-15.0 [facility] [place] Immature granulocytes/100 WB C Auto (Bld)Ordered By: Safia Ruelas on 12-31-2024 Immature granulocytes/100 WBC (Bld) 0.300 % 0.0-0.9 [facility] [place] MCV (mean corpuscular volume ) determinationOrdered By: Safia Ruelas on 12-31-2024 MCV (RBC) [Entitic vol] 91.3 fL 81-99 [facility] Mean corpuscular hemoglobin (MCH) determinationOrdered By: Safia Ruelas on 12-31-2024 MCH (RBC) [Entitic mass] 29.3 pg 27.0-32.0 [facility] Monocyte percentageOrdered B y: Safia Ruelas on 12-31-2024 Monocytes/100 WBC (Bld) 9.4 % 0-10 [facility] Neutrophil percentageOrdered By: Safia Ruelas on 12-31-2024 Neutrophils/100 WBC (Bld) 53.6 % 47-70 [facility] [place] Platelet countOrdered By: Balbir Ruelas on 12-31-2024 Platelets (Bld) [#/Vol] 232 10*3/uL 150-450 [facility] [place] Potassium measurement (mass/ volume)Ordered By: Safia Ruelas on 12-31-2024 Potassium (Unsp spec) [Mass/Vol] 3.5 mmol/L 3.3-5.1 [facility] RBC Auto (Bld) [#/Vol]Ordere d By: Safia Ruelas on 12-31-2024 RBC (Bld) [#/Vol] 4.03 10*6/uL Low 4.2-5.4 [facility] Serum creatinine measurement (mass/volume)Ordered By: Safia Ruelas on 12-31-2024 Creatinine [Mass/Vol] 0.70 mg/dL 0.70-1.20 [facility] Serum glucose measurement (m ass/volume)Ordered By: Safia Ruelas on 12-31-2024 Glucose [Mass/Vol] 142 mg/dL High 70-99 [facility] Serum or plasma calcium dayna urement (mass/volume)Ordered By: Safia Ruelas on 12-31-2024 Calcium [Mass/Vol] 8.4 mg/dL 7.6-11.0 [facility] Serum or plasma urea nitroge n measurement (mass/volume)Ordered By: Safia Ruelas on 12-31-2024 Urea nitrogen [Mass/Vol] 10 mg/dL 4-19 [facility] Sodium levelOrdered By: Leonides Ruelas on 12-31-2024 Sodium [Moles/Vol] 139 mmol/L 133-145 [facility] White blood cell (WBC) count Ordered By: Safia Ruelas on 12-31-2024 WBC (Bld) [#/Vol] 6.9 10*3/uL 4.4-11.0 [facility] Absolute lymphocyte countOrd ered By: Safia Ruelas on 12-24-2024 Lymphocytes Auto (Unsp spec) [#/Vol] 2.54 10*3/uL 0.83-4.51 [facility] Anion gap in Serum or Plasma Ordered By: Safia Ruelas on 12-24-2024 Anion gap [Moles/Vol] 14 mmol/L 5-15 [facility] Automated lymphocyte count a s percentage of total leukocytesOrdered By: Safia Griderbonimelanie on 12-24-2024 Lymphocytes/100 WBC Auto (Unsp spec) 28.0 % 19-41 [facility] BUN/creatinine ratioOrdered By: Safia Griderbonimelanie on 12-24-2024 Urea nitrogen/Creatinine [Mass ratio] 18.4 mg/mg 10-20 [facility] [place] Basophil percentageOrdered B y: Safia Ruelas on 12-24-2024 Basophils/100 WBC (Bld) 0.8 % 0-1 [facility] Carbon dioxide, total [Moles /volume] in Central venous bloodOrdered By: Safia Ruelas on 12-24-2024 CO2 [Moles/Vol] 22.1 mmol/L 21.0-32.0 [facility] [place] Chloride assayOrdered By: Balbir jean mariejosé antonio Ruelas on 12-24-2024 Chloride [Moles/Vol] 101 mmol/L 98-108 [facility] Eosinophil percentageOrdered By: Safia Ruelas on 12-24-2024 Eosinophils/100 WBC (Bld) 2.6 % 0-5 [facility] Erythrocyte distribution wid th ratioOrdered By: Safia Ruelas on 12-24-2024 Erythrocyte distribution width (RBC) [Ratio] 14.4 % 11.6-14.6 [facility] [place] Erythrocyte distribution wid th standard deviationOrdered By: Safia Griderbonimelanie on 12-24-2024 Erythrocyte distribution width (RBC) [Ratio] 48.8 fl High 35.1-43.9 [facility] Glomerular filtration rate ( GFR) estimation/1.73 sq m using serum, plasma, or whole bOrdered By: Safia Ruelas on 12-24-2024 GFR/1.73 sq M.predicted among non-blacks MDRD (S/P/Bld) [Vol rate/Area] 83 mL/min/{1.73_m2} >60 [facility] Hematocrit Auto (Bld) [Volum e fraction]Ordered By: Safia Ruelas on 12-24-2024 Hematocrit (Bld) [Volume fraction] 37.9 % 37-47 [facility] Hemoglobin measurementOrdere d By: Leonidesjosé antonio Cheobonimelanie on 12-24-2024 Hemoglobin (Bld) [Mass/Vol] 12.2 g/dL 12.0-15.0 [facility] Immature granulocytes/100 WB C Auto (Bld)Ordered By: Safia Griderbonimelanie on 12-24-2024 Immature granulocytes/100 WBC (Bld) 0.400 % 0.0-0.9 [facility] [place] MCV (mean corpuscular volume ) determinationOrdered By: Safia Griderbonimelanie on 12-24-2024 MCV (RBC) [Entitic vol] 92.2 fL 81-99 [facility] Mean corpuscular hemoglobin (MCH) determinationOrdered By: Safia Griderbonimelanie on 12-24-2024 MCH (RBC) [Entitic mass] 29.7 pg 27.0-32.0 [facility] Monocyte percentageOrdered B y: Balbirjean mariedesireeskye Griderbonimelanie on 12-24-2024 Monocytes/100 WBC (Bld) 8.7 % 0-10 [facility] Neutrophil percentageOrdered By: Leonidesdefianceskye Griderbonimelanie on 12-24-2024 Neutrophils/100 WBC (Bld) 59.5 % 47-70 [facility] Platelet countOrdered By: Balbir sherry Cheobonimelanie on 12-24-2024 Platelets (Bld) [#/Vol] 256 10*3/uL 150-450 [facility] Potassium measurement (mass/ volume)Ordered By: Balbirjean mariedesireeskye Griderbonimelanie on 12-24-2024 Potassium (Unsp spec) [Mass/Vol] 3.4 mmol/L 3.3-5.1 [facility] [place] RBC Auto (Bld) [#/Vol]Ordere d By: Leonidesjosé antonio Cheobonimelanie on 12-24-2024 RBC (Bld) [#/Vol] 4.11 10*6/uL Low 4.2-5.4 [facility] Serum creatinine measurement (mass/volume)Ordered By: Safia Ruelas on 12-24-2024 Creatinine [Mass/Vol] 0.73 mg/dL 0.70-1.20 [facility] Serum glucose measurement (m ass/volume)Ordered By: Safia Griderbonimelanie on 12-24-2024 Glucose [Mass/Vol] 142 mg/dL High 70-99 [facility] Serum or plasma calcium dayna urement (mass/volume)Ordered By: Safia Ruelas on 12-24-2024 Calcium [Mass/Vol] 9.1 mg/dL 7.6-11.0 [facility] Serum or plasma urea nitroge n measurement (mass/volume)Ordered By: Safia Ruelas on 12-24-2024 Urea nitrogen [Mass/Vol] 13 mg/dL 4-19 [facility] Sodium levelOrdered By: Leonides josé antonio Jessenia on 12-24-2024 Sodium [Moles/Vol] 137 mmol/L 133-145 [facility] White blood cell (WBC) count Ordered By: Safia Griderbonimelanie on 12-24-2024 WBC (Bld) [#/Vol] 9.1 10*3/uL 4.4-11.0 [facility] Absolute lymphocyte countOrd ered By: Safia Ruelas on 12-17-2024 Lymphocytes Auto (Unsp spec) [#/Vol] 2.94 10*3/uL 0.83-4.51 [facility] Anion gap in Serum or Plasma Ordered By: Safia Ruelas on 12-17-2024 Anion gap [Moles/Vol] 15 mmol/L 5-15 [facility] Automated lymphocyte count a s percentage of total leukocytesOrdered By: Safia Ruelas on 12-17-2024 Lymphocytes/100 WBC Auto (Unsp spec) 30.5 % 19-41 [facility] BUN/creatinine ratioOrdered By: Safia Ruelas on 12-17-2024 Urea nitrogen/Creatinine [Mass ratio] 23.4 mg/mg High 10-20 [facility] [place] Basophil percentageOrdered B y: Safia Ruelas on 12-17-2024 Basophils/100 WBC (Bld) 0.7 % 0-1 [facility] Carbon dioxide, total [Moles /volume] in Central venous bloodOrdered By: Safia Ruelas on 12-17-2024 CO2 [Moles/Vol] 22.1 mmol/L 21.0-32.0 [facility] Chloride assayOrdered By: Balbir Ruelas on 12-17-2024 Chloride [Moles/Vol] 102 mmol/L 98-108 [facility] Eosinophil percentageOrdered By: jean mariedefianceskye Ruelas on 12-17-2024 Eosinophils/100 WBC (Bld) 2.3 % 0-5 [facility] [place] Erythrocyte distribution wid th ratioOrdered By: jean mariedefianceskye Ruelas on 12-17-2024 Erythrocyte distribution width (RBC) [Ratio] 14.1 % 11.6-14.6 [facility] [place] Erythrocyte distribution wid th standard deviationOrdered By: Leonidesdefianceskye Ruelas on 12-17-2024 Erythrocyte distribution width (RBC) [Ratio] 47.3 fl High 35.1-43.9 [facility] Glomerular filtration rate ( GFR) estimation/1.73 sq m using serum, plasma, or whole bOrdered By: Safia Ruelas on 12-17-2024 GFR/1.73 sq M.predicted among non-blacks MDRD (S/P/Bld) [Vol rate/Area] 77 mL/min/{1.73_m2} >60 [facility] Hematocrit Auto (Bld) [Volum e fraction]Ordered By: Safia Ruelas on 12-17-2024 Hematocrit (Bld) [Volume fraction] 40.2 % 37-47 [facility] Hemoglobin measurementOrdere d By: Safia Ruelas on 12-17-2024 Hemoglobin (Bld) [Mass/Vol] 12.7 g/dL 12.0-15.0 [facility] Immature granulocytes/100 WB C Auto (Bld)Ordered By: Safia Ruelas on 12-17-2024 Immature granulocytes/100 WBC (Bld) 0.400 % 0.0-0.9 [facility] MCV (mean corpuscular volume ) determinationOrdered By: Safia Ruelas on 12-17-2024 MCV (RBC) [Entitic vol] 92.2 fL 81-99 [facility] Mean corpuscular hemoglobin (MCH) determinationOrdered By: Safia Ruelas on 12-17-2024 MCH (RBC) [Entitic mass] 29.1 pg 27.0-32.0 [facility] Monocyte percentageOrdered B y: Safia Ruelas on 12-17-2024 Monocytes/100 WBC (Bld) 8.6 % 0-10 [facility] Neutrophil percentageOrdered By: Safia Ruelas on 12-17-2024 Neutrophils/100 WBC (Bld) 57.5 % 47-70 [facility] Platelet countOrdered By: Balbir Ruelas on 12-17-2024 Platelets (Bld) [#/Vol] 287 10*3/uL 150-450 [facility] [place] Potassium measurement (mass/ volume)Ordered By: Safia Ruelas on 12-17-2024 Potassium (Unsp spec) [Mass/Vol] 3.5 mmol/L 3.3-5.1 [facility] RBC Auto (Bld) [#/Vol]Ordere d By: Safia Ruelas on 12-17-2024 RBC (Bld) [#/Vol] 4.36 10*6/uL 4.2-5.4 [facility] Serum creatinine measurement (mass/volume)Ordered By: Safia Ruelas on 12-17-2024 Creatinine [Mass/Vol] 0.78 mg/dL 0.70-1.20 [facility] Serum glucose measurement (m ass/volume)Ordered By: Safia Ruelas on 12-17-2024 Glucose [Mass/Vol] 125 mg/dL High 70-99 [facility] Serum or plasma calcium dayna urement (mass/volume)Ordered By: Safia Ruelas on 12-17-2024 Calcium [Mass/Vol] 9.2 mg/dL 7.6-11.0 [facility] Serum or plasma urea nitroge n measurement (mass/volume)Ordered By: Safia Ruelas on 12-17-2024 Urea nitrogen [Mass/Vol] 18 mg/dL 4-19 [facility] [place] Sodium levelOrdered By: Leonides josé antonio Jessenia on 12-17-2024 Sodium [Moles/Vol] 139 mmol/L 133-145 [facility] White blood cell (WBC) count Ordered By: Safia Ruelas on 12-17-2024 WBC (Bld) [#/Vol] 9.6 10*3/uL 4.4-11.0 [facility] Absolute lymphocyte countOrd ered By: Safia Ruelas on 12-10-2024 Lymphocytes Auto (Unsp spec) [#/Vol] 2.59 10*3/uL 0.83-4.51 [facility] Anion gap in Serum or Plasma Ordered By: Safia Ruelas on 12-10-2024 Anion gap [Moles/Vol] 15 mmol/L 5-15 [facility] Automated lymphocyte count a s percentage of total leukocytesOrdered By: Safia Ruelas on 12-10-2024 Lymphocytes/100 WBC Auto (Unsp spec) 30.2 % 19-41 [facility] BUN/creatinine ratioOrdered By: Safia Ruelas on 12-10-2024 Urea nitrogen/Creatinine [Mass ratio] 25.6 mg/mg High 10-20 [facility] Basophil percentageOrdered B y: Safia Ruelas on 12-10-2024 Basophils/100 WBC (Bld) 0.9 % 0-1 [facility] Carbon dioxide, total [Moles /volume] in Central venous bloodOrdered By: Safia Ruelas on 12-10-2024 CO2 [Moles/Vol] 21.7 mmol/L 21.0-32.0 [facility] Chloride assayOrdered By: Balbir Ruelas on 12-10-2024 Chloride [Moles/Vol] 101 mmol/L 98-108 [facility] Eosinophil percentageOrdered By: Safia Ruelas on 12-10-2024 Eosinophils/100 WBC (Bld) 1.9 % 0-5 [facility] Erythrocyte distribution wid th ratioOrdered By: Safia Ruelas on 12-10-2024 Erythrocyte distribution width (RBC) [Ratio] 13.7 % 11.6-14.6 [facility] Erythrocyte distribution wid th standard deviationOrdered By: Safia Ruelas on 12-10-2024 Erythrocyte distribution width (RBC) [Ratio] 46.8 fl High 35.1-43.9 [facility] Glomerular filtration rate ( GFR) estimation/1.73 sq m using serum, plasma, or whole bOrdered By: Safia Ruelas on 12-10-2024 GFR/1.73 sq M.predicted among non-blacks MDRD (S/P/Bld) [Vol rate/Area] 72 mL/min/{1.73_m2} >60 [facility] Hematocrit Auto (Bld) [Volum e fraction]Ordered By: Leonidesdefianceskye Ruelas on 12-10-2024 Hematocrit (Bld) [Volume fraction] 38.8 % 37-47 [facility] Hemoglobin measurementOrdere d By: Safia Ruelas on 12-10-2024 Hemoglobin (Bld) [Mass/Vol] 12.3 g/dL 12.0-15.0 [facility] Immature granulocytes/100 WB C Auto (Bld)Ordered By: Safia Ruelas on 12-10-2024 Immature granulocytes/100 WBC (Bld) 0.500 % 0.0-0.9 [facility] MCV (mean corpuscular volume ) determinationOrdered By: Safia Ruelas on 12-10-2024 MCV (RBC) [Entitic vol] 93.3 fL 81-99 [facility] Mean corpuscular hemoglobin (MCH) determinationOrdered By: jean mariedefianceskye Ruelas on 12-10-2024 MCH (RBC) [Entitic mass] 29.6 pg 27.0-32.0 [facility] Monocyte percentageOrdered B y: Safia Ruelas on 12-10-2024 Monocytes/100 WBC (Bld) 8.2 % 0-10 [facility] Neutrophil percentageOrdered By: jean mariedefianceskye Ruelas on 12-10-2024 Neutrophils/100 WBC (Bld) 58.3 % 47-70 [facility] Platelet countOrdered By: Balbir Ruelas on 12-10-2024 Platelets (Bld) [#/Vol] 247 10*3/uL 150-450 [facility] Potassium measurement (mass/ volume)Ordered By: Safia Ruelas on 12-10-2024 Potassium (Unsp spec) [Mass/Vol] 3.8 mmol/L 3.3-5.1 [facility] RBC Auto (Bld) [#/Vol]Ordere d By: Safia Ruelas on 12-10-2024 RBC (Bld) [#/Vol] 4.16 10*6/uL Low 4.2-5.4 [facility] Serum creatinine measurement (mass/volume)Ordered By: Safia Ruelas on 12-10-2024 Creatinine [Mass/Vol] 0.82 mg/dL 0.70-1.20 [facility] Serum glucose measurement (m ass/volume)Ordered By: Safia Cheoquyen on 12-10-2024 Glucose [Mass/Vol] 149 mg/dL High 70-99 [facility] Serum or plasma calcium dayna urement (mass/volume)Ordered By: Safia Ruelas on 12-10-2024 Calcium [Mass/Vol] 9.1 mg/dL 7.6-11.0 [facility] Serum or plasma urea nitroge n measurement (mass/volume)Ordered By: Safia Ruelas on 12-10-2024 Urea nitrogen [Mass/Vol] 21 mg/dL High 4-19 [facility] Sodium levelOrdered By: Leonides Ruelas on 12-10-2024 Sodium [Moles/Vol] 137 mmol/L 133-145 [facility] White blood cell (WBC) count Ordered By: Safia Cheoquyen on 12-10-2024 WBC (Bld) [#/Vol] 8.6 10*3/uL 4.4-11.0 [facility] Absolute lymphocyte countOrd ered By: Safia Cheoquyen on 12-03-2024 Lymphocytes Auto (Unsp spec) [#/Vol] 2.81 10*3/uL 0.83-4.51 [facility] Anion gap in Serum or Plasma Ordered By: Safia Ruelas on 12-03-2024 Anion gap [Moles/Vol] 14 mmol/L 5-15 [facility] Automated lymphocyte count a s percentage of total leukocytesOrdered By: Safia Ruelas on 12-03-2024 Lymphocytes/100 WBC Auto (Unsp spec) 28.3 % 19-41 [facility] BUN/creatinine ratioOrdered By: Safia Ruelas on 12-03-2024 Urea nitrogen/Creatinine [Mass ratio] 28.4 mg/mg High 10-20 [facility] Basophil percentageOrdered B y: Safia Ruelas on 12-03-2024 Basophils/100 WBC (Bld) 0.6 % 0-1 [facility] Carbon dioxide, total [Moles /volume] in Central venous bloodOrdered By: Leonidesdefianceskye Ruelas on 12-03-2024 CO2 [Moles/Vol] 23.3 mmol/L 21.0-32.0 [facility] Chloride assayOrdered By: Balbir Ruelas on 12-03-2024 Chloride [Moles/Vol] 102 mmol/L 98-108 [facility] Eosinophil percentageOrdered By: Safia Ruelas on 12-03-2024 Eosinophils/100 WBC (Bld) 1.5 % 0-5 [facility] Erythrocyte distribution wid th ratioOrdered By: Safia Ruelas on 12-03-2024 Erythrocyte distribution width (RBC) [Ratio] 14.1 % 11.6-14.6 [facility] Erythrocyte distribution wid th standard deviationOrdered By: Safia Ruelas on 12-03-2024 Erythrocyte distribution width (RBC) [Ratio] 47.9 fl High 35.1-43.9 [facility] Glomerular filtration rate ( GFR) estimation/1.73 sq m using serum, plasma, or whole bOrdered By: Safia Ruelas on 12-03-2024 GFR/1.73 sq M.predicted among non-blacks MDRD (S/P/Bld) [Vol rate/Area] 65 mL/min/{1.73_m2} >60 [facility] Hematocrit Auto (Bld) [Volum e fraction]Ordered By: Safia Griderbonimelanie on 12-03-2024 Hematocrit (Bld) [Volume fraction] 40.0 % 37-47 [facility] Hemoglobin measurementOrdere d By: Safia Ruelas on 12-03-2024 Hemoglobin (Bld) [Mass/Vol] 12.9 g/dL 12.0-15.0 [facility] Immature granulocytes/100 WB C Auto (Bld)Ordered By: Balbirjean mariejosé antonio Cheobonimelanie on 12-03-2024 Immature granulocytes/100 WBC (Bld) 0.300 % 0.0-0.9 [facility] MCV (mean corpuscular volume ) determinationOrdered By: Balbirsherry Griderbonimelanie on 12-03-2024 MCV (RBC) [Entitic vol] 91.3 fL 81-99 [facility] Mean corpuscular hemoglobin (MCH) determinationOrdered By: Balbirsherry Griderbonimelnaie on 12-03-2024 MCH (RBC) [Entitic mass] 29.5 pg 27.0-32.0 [facility] Monocyte percentageOrdered B y: Safia Cheobonimelanie on 12-03-2024 Monocytes/100 WBC (Bld) 9.6 % 0-10 [facility] Neutrophil percentageOrdered By: Safia Ruelas on 12-03-2024 Neutrophils/100 WBC (Bld) 59.7 % 47-70 [facility] Platelet countOrdered By: Balbir powell Cheobonimelanie on 12-03-2024 Platelets (Bld) [#/Vol] 280 10*3/uL 150-450 [facility] Potassium measurement (mass/ volume)Ordered By: Balbirjean mariedesireeskye Griderbonimelanie on 12-03-2024 Potassium (Unsp spec) [Mass/Vol] 4.0 mmol/L 3.3-5.1 [facility] RBC Auto (Bld) [#/Vol]Ordere d By: Safia Cheobonimelanie on 12-03-2024 RBC (Bld) [#/Vol] 4.38 10*6/uL 4.2-5.4 [facility] Serum creatinine measurement (mass/volume)Ordered By: Safia Ruelas on 12-03-2024 Creatinine [Mass/Vol] 0.89 mg/dL 0.70-1.20 [facility] Serum glucose measurement (m ass/volume)Ordered By: Safia Ruelas on 12-03-2024 Glucose [Mass/Vol] 77 mg/dL 70-99 [facility] Serum or plasma calcium dayna urement (mass/volume)Ordered By: Safia Griderboniemlanie on 12-03-2024 Calcium [Mass/Vol] 9.6 mg/dL 7.6-11.0 [facility] Serum or plasma urea nitroge n measurement (mass/volume)Ordered By: Safia Ruelas on 12-03-2024 Urea nitrogen [Mass/Vol] 25 mg/dL High 4-19 [facility] Sodium levelOrdered By: Leonides josé antonio Jessenia on 12-03-2024 Sodium [Moles/Vol] 139 mmol/L 133-145 [facility] TSH DL <= 0.005 mIU/L QnOrde red By: Leonidesdesireeskye Griderbonimelanie on 12-03-2024 TSH Qn 3.500 uIU/mL 0.300-4.200 [facility] White blood cell (WBC) count Ordered By: Safia Ruelas on 12-03-2024 WBC (Bld) [#/Vol] 9.9 10*3/uL 4.4-11.0 [facility] Absolute lymphocyte countOrd ered By: Safia Griderbonimelanie on 11-26-2024 Lymphocytes Auto (Unsp spec) [#/Vol] 2.99 10*3/uL 0.83-4.51 [facility] [place] Absolute neutrophil countOrd ered By: Bandarskye Griderbonimelanie on 11-26-2024 Neutrophils (Bld) [#/Vol] 4.2 10*3/uL 2.0-7.7 [facility] Anion gap in Serum or Plasma Ordered By: Safia Griderbonimelanie on 11-26-2024 Anion gap [Moles/Vol] 13 mmol/L - [facility] Automated lymphocyte count a s percentage of total leukocytesOrdered By: Safia Ruelas on 11-26-2024 Lymphocytes/100 WBC Auto (Unsp spec) 37.1 % 19-41 [facility] [place] BUN/creatinine ratioOrdered By: Safia Ruelas on 11-26-2024 Urea nitrogen/Creatinine [Mass ratio] 24.3 mg/mg High 10-20 [facility] [place] Basophil percentageOrdered B y: Safia Ruelas on 11-26-2024 Basophils/100 WBC (Bld) 0.7 % 0-1 [facility] Carbon dioxide, total [Moles /volume] in Central venous bloodOrdered By: Safia Ruelas on 11-26-2024 CO2 [Moles/Vol] 27.1 mmol/L 21.0-32.0 [facility] [place] Chloride assayOrdered By: Balbir Ruelas on 11-26-2024 Chloride [Moles/Vol] 101 mmol/L 98-108 [facility] Eosinophil percentageOrdered By: sherry Ruelas on 11-26-2024 Eosinophils/100 WBC (Bld) 1.9 % 0-5 [facility] Erythrocyte distribution wid th ratioOrdered By: Safia Ruelas on 11-26-2024 Erythrocyte distribution width (RBC) [Ratio] 14.2 % 11.6-14.6 [facility] [place] Erythrocyte distribution wid th standard deviationOrdered By: Safia Ruelas on 11-26-2024 Erythrocyte distribution width (RBC) [Ratio] 48.0 fl High 35.1-43.9 [facility] Glomerular filtration rate ( GFR) estimation/1.73 sq m using serum, plasma, or whole bOrdered By: Safia Ruelas on 11-26-2024 GFR/1.73 sq M.predicted among non-blacks MDRD (S/P/Bld) [Vol rate/Area] 63 mL/min/{1.73_m2} >60 [facility] Comment on above: mL/min/1.73m2 CKD-EP I Creatinine Equation (2020) Hematocrit Auto (Bld) [Volum e fraction]Ordered By: Safia Ruelas on 11-26-2024 Hematocrit (Bld) [Volume fraction] 42.7 % 37-47 [facility] [place] Hemoglobin measurementOrdere d By: Safia Ruelas on 11-26-2024 Hemoglobin (Bld) [Mass/Vol] 13.6 g/dL 12.0-15.0 [facility] [place] Immature granulocytes/100 WB C Auto (Bld)Ordered By: Safia Ruelas on 11-26-2024 Immature granulocytes/100 WBC (Bld) 0.500 % 0.0-0.9 [facility] [place] Comment on above: IG% - Immature Granu locytes (promyelocytes, myelocytes and metamyelocytes) > 1% indicates that a LEFT SHIFT is Present. MCV (mean corpuscular volume ) determinationOrdered By: Safia Ruelas on 11-26-2024 MCV (RBC) [Entitic vol] 92.0 fL 81-99 [facility] Mean corpuscular hemoglobin (MCH) determinationOrdered By: Safia Ruelas on 11-26-2024 MCH (RBC) [Entitic mass] 29.3 pg 27.0-32.0 [facility] [place] Mean corpuscular hemoglobin concentration (MCHC) determinationOrdered By: Safia Ruelas on 11-26-2024 MCHC (RBC) [Mass/Vol] 31.9 g/dL Low 32-36 [facility] Mean platelet volume determi nationOrdered By: Safia Ruelas on 11-26-2024 Platelet mean volume (Bld) [Entitic vol] 11.5 fL 6.2-12.0 [facility] [place] Monocyte percentageOrdered B y: Safia Ruelas on 11-26-2024 Monocytes/100 WBC (Bld) 7.7 % 0-10 [facility] Neutrophil percentageOrdered By: Safia Ruelas on 11-26-2024 Neutrophils/100 WBC (Bld) 52.1 % 47-70 [facility] [place] Nucleated red blood cell per centageOrdered By: Safia Ruelas on 11-26-2024 Nucleated RBC/100 WBC (Bld) [Ratio] 0 % 0-5 [facility] Platelet countOrdered By: Balbir Ruelas on 11-26-2024 Platelets (Bld) [#/Vol] 283 10*3/uL 150-450 [facility] Potassium measurement (mass/ volume)Ordered By: Safia Ruelas on 11-26-2024 Potassium (Unsp spec) [Mass/Vol] 3.8 mmol/L 3.3-5.1 [facility] RBC Auto (Bld) [#/Vol]Ordere d By: Leonidesdesireeskye Griderbonimelanie on 11-26-2024 RBC (Bld) [#/Vol] 4.64 10*6/uL 4.2-5.4 [facility] Serum creatinine measurement (mass/volume)Ordered By: Safia Ruelas on 11-26-2024 Creatinine [Mass/Vol] 0.92 mg/dL 0.70-1.20 [facility] Serum glucose measurement (m ass/volume)Ordered By: Safia Ruelas on 11-26-2024 Glucose [Mass/Vol] 97 mg/dL 70-99 [facility] Serum or plasma calcium dayna urement (mass/volume)Ordered By: Safia Ruelas on 11-26-2024 Calcium [Mass/Vol] 10.0 mg/dL 7.6-11.0 [facility] Serum or plasma urea nitroge n measurement (mass/volume)Ordered By: Safia Ruelas on 11-26-2024 Urea nitrogen [Mass/Vol] 22 mg/dL High 4-19 [facility] [place] Sodium levelOrdered By: Leonides josé antonio Cheobonimelanie on 11-26-2024 Sodium [Moles/Vol] 140 mmol/L 133-145 [facility] White blood cell (WBC) count Ordered By: Safia Ruelas on 11-26-2024 WBC (Bld) [#/Vol] 8.1 10*3/uL 4.4-11.0 [facility] Clostridium difficile detect ion by polymerase chain reactionOrdered By: Safia Ruelas on 11-25-2024 C. difficile DNA CHUCKY+probe Ql (Unsp spec) [facility] [place] Absolute lymphocyte countOrd ered By: Safia Ruelas on 11-19-2024 Lymphocytes Auto (Unsp spec) [#/Vol] 2.71 10*3/uL 0.83-4.51 [facility] [place] Absolute neutrophil countOrd ered By: Safia Ruelas on 11-19-2024 Neutrophils (Bld) [#/Vol] 5.2 10*3/uL 2.0-7.7 [facility] Anion gap in Serum or Plasma Ordered By: Safia Ruelas on 11-19-2024 Anion gap [Moles/Vol] 12 mmol/L 5-15 [facility] Automated lymphocyte count a s percentage of total leukocytesOrdered By: Safia Ruelas on 11-19-2024 Lymphocytes/100 WBC Auto (Unsp spec) 30.4 % 19-41 [facility] [place] BUN/creatinine ratioOrdered By: jean mariedefianceskye Ruelas on 11-19-2024 Urea nitrogen/Creatinine [Mass ratio] 25.0 mg/mg High 10-20 [facility] Basophil percentageOrdered B y: Safia Ruelas on 11-19-2024 Basophils/100 WBC (Bld) 0.6 % 0-1 [facility] Carbon dioxide, total [Moles /volume] in Central venous bloodOrdered By: Safia Ruelas on 11-19-2024 CO2 [Moles/Vol] 25.5 mmol/L 21.0-32.0 [facility] [place] Chloride assayOrdered By: Balbir Ruelas on 11-19-2024 Chloride [Moles/Vol] 101 mmol/L 98-108 [facility] Eosinophil percentageOrdered By: jean mariedefianceskye Ruelas on 11-19-2024 Eosinophils/100 WBC (Bld) 2.1 % 0-5 [facility] Erythrocyte distribution wid th ratioOrdered By: Safia Ruelas on 11-19-2024 Erythrocyte distribution width (RBC) [Ratio] 13.9 % 11.6-14.6 [facility] Erythrocyte distribution wid th standard deviationOrdered By: sherry Ruelas on 11-19-2024 Erythrocyte distribution width (RBC) [Ratio] 46.6 fl High 35.1-43.9 [facility] [place] Glomerular filtration rate ( GFR) estimation/1.73 sq m using serum, plasma, or whole bOrdered By: Safia Ruelas on 11-19-2024 GFR/1.73 sq M.predicted among non-blacks MDRD (S/P/Bld) [Vol rate/Area] 66 mL/min/{1.73_m2} >60 [facility] [place] Comment on above: mL/min/1.73m2 CKD-EP I Creatinine Equation (2020) Hematocrit Auto (Bld) [Volum e fraction]Ordered By: Safia Ruelas on 11-19-2024 Hematocrit (Bld) [Volume fraction] 39.2 % 37-47 [facility] [place] Hemoglobin measurementOrdere d By: Safia Ruelas on 11-19-2024 Hemoglobin (Bld) [Mass/Vol] 12.7 g/dL 12.0-15.0 [facility] [place] Immature granulocytes/100 WB C Auto (Bld)Ordered By: Safia Ruelas on 11-19-2024 Immature granulocytes/100 WBC (Bld) 0.300 % 0.0-0.9 [facility] [place] Comment on above: IG% - Immature Granu locytes (promyelocytes, myelocytes and metamyelocytes) > 1% indicates that a LEFT SHIFT is Present. MCV (mean corpuscular volume ) determinationOrdered By: Safia Ruelas on 11-19-2024 MCV (RBC) [Entitic vol] 91.4 fL 81-99 [facility] Mean corpuscular hemoglobin (MCH) determinationOrdered By: Safia Ruelas on 11-19-2024 MCH (RBC) [Entitic mass] 29.6 pg 27.0-32.0 [facility] [place] Mean corpuscular hemoglobin concentration (MCHC) determinationOrdered By: Safia Ruelas on 11-19-2024 MCHC (RBC) [Mass/Vol] 32.4 g/dL 32-36 [facility] Mean platelet volume determi nationOrdered By: Safia Ruelas on 11-19-2024 Platelet mean volume (Bld) [Entitic vol] 11.5 fL 6.2-12.0 [facility] [place] Monocyte percentageOrdered B y: Safia Ruelas on 11-19-2024 Monocytes/100 WBC (Bld) 7.8 % 0-10 [facility] Neutrophil percentageOrdered By: Safia Ruelas on 11-19-2024 Neutrophils/100 WBC (Bld) 58.8 % 47-70 [facility] [place] Nucleated red blood cell per centageOrdered By: Safia Cheoquyen on 11-19-2024 Nucleated RBC/100 WBC (Bld) [Ratio] 0 % 0-5 [facility] Platelet countOrdered By: Balbir sherry Cheobonimelanie on 11-19-2024 Platelets (Bld) [#/Vol] 300 10*3/uL 150-450 [facility] Potassium measurement (mass/ volume)Ordered By: Safia Griderbonimelanie on 11-19-2024 Potassium (Unsp spec) [Mass/Vol] 3.8 mmol/L 3.3-5.1 [facility] RBC Auto (Bld) [#/Vol]Ordere d By: Leonidesdesireeskye Griderbonimelanie on 11-19-2024 RBC (Bld) [#/Vol] 4.29 10*6/uL 4.2-5.4 [facility] Serum creatinine measurement (mass/volume)Ordered By: Safia Ruelas on 11-19-2024 Creatinine [Mass/Vol] 0.88 mg/dL 0.70-1.20 [facility] Serum glucose measurement (m ass/volume)Ordered By: Balbirjean mariedesireeskye Ruelas on 11-19-2024 Glucose [Mass/Vol] 136 mg/dL High 70-99 [facility] Serum or plasma calcium dayna urement (mass/volume)Ordered By: Leonidesdesireeskye Griderbonimelanie on 11-19-2024 Calcium [Mass/Vol] 9.6 mg/dL 7.6-11.0 [facility] Serum or plasma urea nitroge n measurement (mass/volume)Ordered By: Safia Ruelas on 11-19-2024 Urea nitrogen [Mass/Vol] 22 mg/dL High 4-19 [facility] [place] Sodium levelOrdered By: Balbirjean marie josé antonio Cheobonimelanie on 11-19-2024 Sodium [Moles/Vol] 139 mmol/L 133-145 [facility] White blood cell (WBC) count Ordered By: Safia Ruelas on 11-19-2024 WBC (Bld) [#/Vol] 8.9 10*3/uL 4.4-11.0 [facility] Absolute lymphocyte countOrd ered By: Leonidesjosé antonio Cheobonimelanie on 11-12-2024 Lymphocytes Auto (Unsp spec) [#/Vol] 2.49 10*3/uL 0.83-4.51 [facility] [place] Absolute neutrophil countOrd ered By: Leonidesdesireeskye Griderbonimelanie on 11-12-2024 Neutrophils (Bld) [#/Vol] 4.2 10*3/uL 2.0-7.7 [facility] Anion gap in Serum or Plasma Ordered By: Safia Ruelas on 11-12-2024 Anion gap [Moles/Vol] 12 mmol/L 5-15 [facility] Automated lymphocyte count a s percentage of total leukocytesOrdered By: Safia Ruelas on 11-12-2024 Lymphocytes/100 WBC Auto (Unsp spec) 31.9 % 19-41 [facility] BUN/creatinine ratioOrdered By: Safia Ruelas on 11-12-2024 Urea nitrogen/Creatinine [Mass ratio] 28.1 mg/mg High 10-20 [facility] Basophil percentageOrdered B y: Safia Ruelas on 11-12-2024 Basophils/100 WBC (Bld) 0.6 % 0-1 [facility] Carbon dioxide, total [Moles /volume] in Central venous bloodOrdered By: Safia Ruelas on 11-12-2024 CO2 [Moles/Vol] 25.1 mmol/L 21.0-32.0 [facility] Chloride assayOrdered By: Balbir Ruelas on 11-12-2024 Chloride [Moles/Vol] 102 mmol/L 98-108 [facility] Eosinophil percentageOrdered By: sherry Ruelas on 11-12-2024 Eosinophils/100 WBC (Bld) 2.8 % 0-5 [facility] [place] Erythrocyte distribution wid th ratioOrdered By: Safia Ruelas on 11-12-2024 Erythrocyte distribution width (RBC) [Ratio] 13.8 % 11.6-14.6 [facility] [place] Erythrocyte distribution wid th standard deviationOrdered By: Safia Ruelas on 11-12-2024 Erythrocyte distribution width (RBC) [Ratio] 46.7 fl High 35.1-43.9 [facility] [place] Glomerular filtration rate ( GFR) estimation/1.73 sq m using serum, plasma, or whole bOrdered By: Safia Ruelas on 11-12-2024 GFR/1.73 sq M.predicted among non-blacks MDRD (S/P/Bld) [Vol rate/Area] 70 mL/min/{1.73_m2} >60 [facility] [place] Comment on above: mL/min/1.73m2 CKD-EP I Creatinine Equation (2020) Hematocrit Auto (Bld) [Volum e fraction]Ordered By: jean mariedefianceskye Ruelas on 11-12-2024 Hematocrit (Bld) [Volume fraction] 40.6 % 37-47 [facility] Hemoglobin measurementOrdere d By: Safia Ruelas on 11-12-2024 Hemoglobin (Bld) [Mass/Vol] 13.2 g/dL 12.0-15.0 [facility] [place] Immature granulocytes/100 WB C Auto (Bld)Ordered By: Safia Ruelas on 11-12-2024 Immature granulocytes/100 WBC (Bld) 0.400 % 0.0-0.9 [facility] [place] Comment on above: IG% - Immature Granu locytes (promyelocytes, myelocytes and metamyelocytes) > 1% indicates that a LEFT SHIFT is Present. MCV (mean corpuscular volume ) determinationOrdered By: Safia Ruelas on 11-12-2024 MCV (RBC) [Entitic vol] 92.1 fL 81-99 [facility] Mean corpuscular hemoglobin (MCH) determinationOrdered By: Safia Ruelas on 11-12-2024 MCH (RBC) [Entitic mass] 29.9 pg 27.0-32.0 [facility] [place] Mean corpuscular hemoglobin concentration (MCHC) determinationOrdered By: jean mariedefianceskye Ruelas on 11-12-2024 MCHC (RBC) [Mass/Vol] 32.5 g/dL 32-36 [facility] Mean platelet volume determi nationOrdered By: Safia Ruelas on 11-12-2024 Platelet mean volume (Bld) [Entitic vol] 11.7 fL 6.2-12.0 [facility] Monocyte percentageOrdered B y: Safia Ruelas on 11-12-2024 Monocytes/100 WBC (Bld) 10.0 % 0-10 [facility] Neutrophil percentageOrdered By: Safia Ruelas on 11-12-2024 Neutrophils/100 WBC (Bld) 54.3 % 47-70 [facility] Nucleated red blood cell per centageOrdered By: Safia Ruelas on 11-12-2024 Nucleated RBC/100 WBC (Bld) [Ratio] 0 % 0-5 [facility] Platelet countOrdered By: Balbir Ruelas on 11-12-2024 Platelets (Bld) [#/Vol] 304 10*3/uL 150-450 [facility] Potassium measurement (mass/ volume)Ordered By: Safia Ruelas on 11-12-2024 Potassium (Unsp spec) [Mass/Vol] 3.9 mmol/L 3.3-5.1 [facility] RBC Auto (Bld) [#/Vol]Ordere d By: Safia Ruelas on 11-12-2024 RBC (Bld) [#/Vol] 4.41 10*6/uL 4.2-5.4 [facility] Serum creatinine measurement (mass/volume)Ordered By: Safia Ruelas on 11-12-2024 Creatinine [Mass/Vol] 0.84 mg/dL 0.70-1.20 [facility] Serum glucose measurement (m ass/volume)Ordered By: Safia Ruelas on 11-12-2024 Glucose [Mass/Vol] 112 mg/dL High 70-99 [facility] Serum or plasma calcium dayna urement (mass/volume)Ordered By: Safia Ruelas on 11-12-2024 Calcium [Mass/Vol] 9.7 mg/dL 7.6-11.0 [facility] Serum or plasma urea nitroge n measurement (mass/volume)Ordered By: Safia Ruelas on 11-12-2024 Urea nitrogen [Mass/Vol] 24 mg/dL High 4-19 [facility] Sodium levelOrdered By: Leonides josé antonio Cheobonimelanie on 11-12-2024 Sodium [Moles/Vol] 139 mmol/L 133-145 [facility] White blood cell (WBC) count Ordered By: Leonidesjosé antonio Cheobonimelanie on 11-12-2024 WBC (Bld) [#/Vol] 7.8 10*3/uL 4.4-11.0 [facility] Absolute lymphocyte countOrd ered By: Leonidesdesireeskye Griderbonimelanie on 11-05-2024 Lymphocytes Auto (Unsp spec) [#/Vol] 2.91 10*3/uL 0.83-4.51 [facility] [place] Absolute neutrophil countOrd ered By: Safia Griderbonimelanie on 11-05-2024 Neutrophils (Bld) [#/Vol] 4.6 10*3/uL 2.0-7.7 [facility] Anion gap in Serum or Plasma Ordered By: Safia Griderbonimelanie on 11-05-2024 Anion gap [Moles/Vol] 13 mmol/L 5-15 [facility] Automated lymphocyte count a s percentage of total leukocytesOrdered By: Safia Ruelas on 11-05-2024 Lymphocytes/100 WBC Auto (Unsp spec) 33.7 % 19-41 [facility] BUN/creatinine ratioOrdered By: Safia Griderbonimelanie on 11-05-2024 Urea nitrogen/Creatinine [Mass ratio] 23.3 mg/mg High 10-20 [facility] Basophil percentageOrdered B y: Safia Griderbonimelanie on 11-05-2024 Basophils/100 WBC (Bld) 0.9 % 0-1 [facility] Carbon dioxide, total [Moles /volume] in Central venous bloodOrdered By: Safia Ruelas on 11-05-2024 CO2 [Moles/Vol] 24.2 mmol/L 21.0-32.0 [facility] [place] Chloride assayOrdered By: Balbir Ruelas on 11-05-2024 Chloride [Moles/Vol] 102 mmol/L 98-108 [facility] Eosinophil percentageOrdered By: Safia Ruelas on 11-05-2024 Eosinophils/100 WBC (Bld) 2.7 % 0-5 [facility] Erythrocyte distribution wid th ratioOrdered By: Safia Ruelas on 11-05-2024 Erythrocyte distribution width (RBC) [Ratio] 13.9 % 11.6-14.6 [facility] Erythrocyte distribution wid th standard deviationOrdered By: Safia Ruelas on 11-05-2024 Erythrocyte distribution width (RBC) [Ratio] 47.1 fl High 35.1-43.9 [facility] Glomerular filtration rate ( GFR) estimation/1.73 sq m using serum, plasma, or whole bOrdered By: Safia Ruelas on 11-05-2024 GFR/1.73 sq M.predicted among non-blacks MDRD (S/P/Bld) [Vol rate/Area] 62 mL/min/{1.73_m2} >60 [facility] Comment on above: mL/min/1.73m2 CKD-EP I Creatinine Equation (2020) Hematocrit Auto (Bld) [Volum e fraction]Ordered By: Safia Ruelas on 11-05-2024 Hematocrit (Bld) [Volume fraction] 40.7 % 37-47 [facility] Hemoglobin measurementOrdere d By: Safia Ruelas on 11-05-2024 Hemoglobin (Bld) [Mass/Vol] 12.9 g/dL 12.0-15.0 [facility] Immature granulocytes/100 WB C Auto (Bld)Ordered By: Safia Ruelas 11-05-2024 Immature granulocytes/100 WBC (Bld) 0.500 % 0.0-0.9 [facility] Comment on above: IG% - Immature Granu locytes (promyelocytes, myelocytes and metamyelocytes) > 1% indicates that a LEFT SHIFT is Present. MCV (mean corpuscular volume ) determinationOrdered By: Safia Ruelas on 11-05-2024 MCV (RBC) [Entitic vol] 92.9 fL 81-99 [facility] Mean corpuscular hemoglobin (MCH) determinationOrdered By: Leonidesdefianceskye Ruelas 11-05-2024 MCH (RBC) [Entitic mass] 29.5 pg 27.0-32.0 [facility] Mean corpuscular hemoglobin concentration (MCHC) determinationOrdered By: Safia Ruelas on 11-05-2024 MCHC (RBC) [Mass/Vol] 31.7 g/dL Low 32-36 [facility] Mean platelet volume determi nationOrdered By: Safia Ruelas on 11-05-2024 Platelet mean volume (Bld) [Entitic vol] 11.2 fL 6.2-12.0 [facility] Monocyte percentageOrdered B y: Safia Ruelas on 11-05-2024 Monocytes/100 WBC (Bld) 8.6 % 0-10 [facility] Neutrophil percentageOrdered By: Safia Ruelas on 11-05-2024 Neutrophils/100 WBC (Bld) 53.6 % 47-70 [facility] Nucleated red blood cell per centageOrdered By: Safia Ruelas on 11-05-2024 Nucleated RBC/100 WBC (Bld) [Ratio] 0 % 0-5 [facility] [place] Platelet countOrdered By: Balbir Ruelas on 11-05-2024 Platelets (Bld) [#/Vol] 318 10*3/uL 150-450 [facility] [place] Potassium measurement (mass/ volume)Ordered By: Safia Ruelas on 11-05-2024 Potassium (Unsp spec) [Mass/Vol] 4.0 mmol/L 3.3-5.1 [facility] RBC Auto (Bld) [#/Vol]Ordere d By: Safia Ruelas on 11-05-2024 RBC (Bld) [#/Vol] 4.38 10*6/uL 4.2-5.4 [facility] Serum creatinine measurement (mass/volume)Ordered By: Safia Ruelas on 11-05-2024 Creatinine [Mass/Vol] 0.93 mg/dL 0.70-1.20 [facility] Serum glucose measurement (m ass/volume)Ordered By: Safia Ruelas on 11-05-2024 Glucose [Mass/Vol] 70 mg/dL 70-99 [facility] Serum or plasma calcium dayna urement (mass/volume)Ordered By: Safia Ruelas on 11-05-2024 Calcium [Mass/Vol] 9.5 mg/dL 7.6-11.0 [facility] Serum or plasma urea nitroge n measurement (mass/volume)Ordered By: Bandarskye Griderbonimelanie on 11-05-2024 Urea nitrogen [Mass/Vol] 22 mg/dL High 4-19 [facility] Sodium levelOrdered By: Leonides Ruelas on 11-05-2024 Sodium [Moles/Vol] 139 mmol/L 133-145 [facility] White blood cell (WBC) count Ordered By: Balbirjean mariejosé antonio Cheobonimelanie on 11-05-2024 WBC (Bld) [#/Vol] 8.6 10*3/uL 4.4-11.0 [facility] Absolute lymphocyte countOrd ered By: Balbirjean mariejosé antonio Cheobonimelanie on 10-29-2024 Lymphocytes Auto (Unsp spec) [#/Vol] 2.69 10*3/uL 0.83-4.51 [facility] [place] Absolute neutrophil countOrd ered By: Safia Cheobonimelanie on 10-29-2024 Neutrophils (Bld) [#/Vol] 4.5 10*3/uL 2.0-7.7 [facility] Anion gap in Serum or Plasma Ordered By: Balbirjean mariejosé antonio Cheobonimelanie on 10-29-2024 Anion gap [Moles/Vol] 11 mmol/L 5-15 [facility] Automated lymphocyte count a s percentage of total leukocytesOrdered By: Balbirsherry Griderbonimelanie on 10-29-2024 Lymphocytes/100 WBC Auto (Unsp spec) 32.6 % 19-41 [facility] [place] BUN/creatinine ratioOrdered By: Balbirjean mariedesireeskye Griderbonimelanie on 10-29-2024 Urea nitrogen/Creatinine [Mass ratio] 25.2 mg/mg High 10-20 [facility] [place] Basophil percentageOrdered B y: Safia Cheobonimelanie on 10-29-2024 Basophils/100 WBC (Bld) 0.7 % 0-1 [facility] Carbon dioxide, total [Moles /volume] in Central venous bloodOrdered By: Balbirsherry Griderbonimelanie on 10-29-2024 CO2 [Moles/Vol] 25.7 mmol/L 21.0-32.0 [facility] [place] Chloride assayOrdered By: Balbir Ruelas on 10-29-2024 Chloride [Moles/Vol] 102 mmol/L 98-108 [facility] Eosinophil percentageOrdered By: Safia Ruelas on 10-29-2024 Eosinophils/100 WBC (Bld) 2.1 % 0-5 [facility] [place] Erythrocyte distribution wid th ratioOrdered By: Safia Ruelas on 10-29-2024 Erythrocyte distribution width (RBC) [Ratio] 13.6 % 11.6-14.6 [facility] [place] Erythrocyte distribution wid th standard deviationOrdered By: Safia Ruelas on 10-29-2024 Erythrocyte distribution width (RBC) [Ratio] 46.6 fl High 35.1-43.9 [facility] [place] Glomerular filtration rate ( GFR) estimation/1.73 sq m using serum, plasma, or whole bOrdered By: Safia Ruelas on 10-29-2024 GFR/1.73 sq M.predicted among non-blacks MDRD (S/P/Bld) [Vol rate/Area] 59 mL/min/{1.73_m2} Low >60 [facility] [place] Comment on above: mL/min/1.73m2 CKD-EP I Creatinine Equation (2020) Hematocrit Auto (Bld) [Volum e fraction]Ordered By: Safia Ruelas on 10-29-2024 Hematocrit (Bld) [Volume fraction] 37.8 % 37-47 [facility] [place] Hemoglobin measurementOrdere d By: Safia Ruelas on 10-29-2024 Hemoglobin (Bld) [Mass/Vol] 12.2 g/dL 12.0-15.0 [facility] [place] Immature granulocytes/100 WB C Auto (Bld)Ordered By: Safia Ruelas 10-29-2024 Immature granulocytes/100 WBC (Bld) 0.400 % 0.0-0.9 [facility] [place] Comment on above: IG% - Immature Granu locytes (promyelocytes, myelocytes and metamyelocytes) > 1% indicates that a LEFT SHIFT is Present. MCV (mean corpuscular volume ) determinationOrdered By: Safia Ruelas on 10-29-2024 MCV (RBC) [Entitic vol] 92.2 fL 81-99 [facility] Mean corpuscular hemoglobin (MCH) determinationOrdered By: Safia Ruelas on 10-29-2024 MCH (RBC) [Entitic mass] 29.8 pg 27.0-32.0 [facility] [place] Mean corpuscular hemoglobin concentration (MCHC) determinationOrdered By: Safia Ruelas on 10-29-2024 MCHC (RBC) [Mass/Vol] 32.3 g/dL 32-36 [facility] Mean platelet volume determi nationOrdered By: Safia Ruelas on 10-29-2024 Platelet mean volume (Bld) [Entitic vol] 11.1 fL 6.2-12.0 [facility] [place] Monocyte percentageOrdered B y: Safia Ruelas on 10-29-2024 Monocytes/100 WBC (Bld) 9.9 % 0-10 [facility] Neutrophil percentageOrdered By: Safia Ruelas on 10-29-2024 Neutrophils/100 WBC (Bld) 54.3 % 47-70 [facility] [place] Nucleated red blood cell per centageOrdered By: Safia Ruelas on 10-29-2024 Nucleated RBC/100 WBC (Bld) [Ratio] 0 % 0-5 [facility] [place] Platelet countOrdered By: Balbir jean mariejosé antonio Ruelas on 10-29-2024 Platelets (Bld) [#/Vol] 283 10*3/uL 150-450 [facility] [place] Potassium measurement (mass/ volume)Ordered By: Safia Ruelas on 10-29-2024 Potassium (Unsp spec) [Mass/Vol] 3.9 mmol/L 3.3-5.1 [facility] [place] RBC Auto (Bld) [#/Vol]Ordere d By: Safia Ruelas on 10-29-2024 RBC (Bld) [#/Vol] 4.10 10*6/uL Low 4.2-5.4 [facility] Serum creatinine measurement (mass/volume)Ordered By: Safia Ruelas on 10-29-2024 Creatinine [Mass/Vol] 0.97 mg/dL 0.70-1.20 [facility] Serum glucose measurement (m ass/volume)Ordered By: Safia Ruelas on 10-29-2024 Glucose [Mass/Vol] 74 mg/dL 70-99 [facility] Serum or plasma calcium dayna urement (mass/volume)Ordered By: Safia Ruelas on 10-29-2024 Calcium [Mass/Vol] 9.5 mg/dL 7.6-11.0 [facility] Serum or plasma urea nitroge n measurement (mass/volume)Ordered By: Safia Ruelas on 10-29-2024 Urea nitrogen [Mass/Vol] 24 mg/dL High 4-19 [facility] [place] Sodium levelOrdered By: Leonides Ruelas on 10-29-2024 Sodium [Moles/Vol] 138 mmol/L 133-145 [facility] White blood cell (WBC) count Ordered By: Safia Ruelas on 10-29-2024 WBC (Bld) [#/Vol] 8.3 10*3/uL 4.4-11.0 [facility] Bilirubin Test strip Ql (U)O rdered By: Safia Ruelas on 10-23-2024 Bilirubin Ql (U) Negative Negative [facility] Ketones Test strip Ql (U)Ord ered By: Safia Ruelas on 10-23-2024 Ketones Ql (U) Negative Negative [facility] [place] Nitrite Test strip Ql (U)Ord ered By: Safia Ruelas on 10-23-2024 Nitrite Ql (U) Positive High Negative [facility] Protein Test strip Ql (U)Ord ered By: Safia Ruelas on 10-23-2024 Protein Ql (U) 15 mg/dl High Negative [facility] [place] Urine clarityOrdered By: Augusto Ruelas on 10-23-2024 Clarity (U) Clear Clear [facility] [place] Urine color determinationOrd ered By: Safia Ruelas on 10-23-2024 Color (U) Yellow Yellow [facility] Urine cultureOrdered By: Augusto Ruelas on 10-23-2024 Bacteria identified Cx Nom (U) Klebsiella pneumoniae sp pneum Abnormal [facility] Urine glucose detectionOrder ed By: Safia Ruelas on 10-23-2024 Glucose Ql (U) Normal mg/dl Normal [facility] [place] Urine leukocyte esterase det ection by dipstickOrdered By: Safia Ruelas on 10-23-2024 Leukocyte esterase Test strip Ql (U) 500 /ul High Negative [facility] [place] Urine pHOrdered By: Mazin Ruelas on 10-23-2024 pH (U) 6.0 [pH] 5.0 - 8.0 [facility] [place] Urine specific gravity measu rementOrdered By: Safia Ruelas on 10-23-2024 Specific gravity (U) [Rel density] 1.010 1.002-1.030 [facility] [place] Urine urobilinogen measureme ntOrdered By: Safia Ruelas on 10-23-2024 Urobilinogen Ql (U) Normal mg/dl Normal [facility] Absolute lymphocyte countOrd ered By: Safia Ruelas on 10-22-2024 Lymphocytes Auto (Unsp spec) [#/Vol] 3.07 10*3/uL 0.83-4.51 [facility] [place] Absolute neutrophil countOrd ered By: Safia Ruelas on 10-22-2024 Neutrophils (Bld) [#/Vol] 4.6 10*3/uL 2.0-7.7 [facility] Anion gap in Serum or Plasma Ordered By: Safia Ruelas on 10-22-2024 Anion gap [Moles/Vol] 15 mmol/L 5-15 [facility] Automated lymphocyte count a s percentage of total leukocytesOrdered By: Safia Ruelas on 10-22-2024 Lymphocytes/100 WBC Auto (Unsp spec) 34.8 % 19-41 [facility] [place] BUN/creatinine ratioOrdered By: Safia Ruelas on 10-22-2024 Urea nitrogen/Creatinine [Mass ratio] 28.6 mg/mg High 10-20 [facility] [place] Basophil percentageOrdered B y: Safia Ruelas on 10-22-2024 Basophils/100 WBC (Bld) 0.9 % 0-1 [facility] Carbon dioxide, total [Moles /volume] in Central venous bloodOrdered By: Safia Ruelas on 10-22-2024 CO2 [Moles/Vol] 23.1 mmol/L 21.0-32.0 [facility] [place] Chloride assayOrdered By: Balbir Ruelas on 10-22-2024 Chloride [Moles/Vol] 100 mmol/L 98-108 [facility] Eosinophil percentageOrdered By: sherry Ruelas on 10-22-2024 Eosinophils/100 WBC (Bld) 3.1 % 0-5 [facility] [place] Erythrocyte distribution wid th ratioOrdered By: jean mariedefianceskye Reulas on 10-22-2024 Erythrocyte distribution width (RBC) [Ratio] 13.6 % 11.6-14.6 [facility] [place] Erythrocyte distribution wid th standard deviationOrdered By: jean mariedefianceskye Ruelas on 10-22-2024 Erythrocyte distribution width (RBC) [Ratio] 45.9 fl High 35.1-43.9 [facility] [place] Glomerular filtration rate ( GFR) estimation/1.73 sq m using serum, plasma, or whole bOrdered By: Safia Ruelas on 10-22-2024 GFR/1.73 sq M.predicted among non-blacks MDRD (S/P/Bld) [Vol rate/Area] 60 mL/min/{1.73_m2} >60 [facility] [place] Comment on above: mL/min/1.73m2 CKD-EP I Creatinine Equation (2020) Hematocrit Auto (Bld) [Volum e fraction]Ordered By: Safia Ruelas on 10-22-2024 Hematocrit (Bld) [Volume fraction] 40.7 % 37-47 [facility] [place] Hemoglobin measurementOrdere d By: Safia Ruelas on 10-22-2024 Hemoglobin (Bld) [Mass/Vol] 13.1 g/dL 12.0-15.0 [facility] [place] Immature granulocytes/100 WB C Auto (Bld)Ordered By: Safia Ruelas on 10-22-2024 Immature granulocytes/100 WBC (Bld) 1.400 % High 0.0-0.9 [facility] [place] Comment on above: IG% - Immature Granu locytes (promyelocytes, myelocytes and metamyelocytes) > 1% indicates that a LEFT SHIFT is Present. MCV (mean corpuscular volume ) determinationOrdered By: Safia Ruelas on 10-22-2024 MCV (RBC) [Entitic vol] 91.9 fL 81-99 [facility] Mean corpuscular hemoglobin (MCH) determinationOrdered By: Safia Ruelas on 10-22-2024 MCH (RBC) [Entitic mass] 29.6 pg 27.0-32.0 [facility] [place] Mean corpuscular hemoglobin concentration (MCHC) determinationOrdered By: Safia Ruelas on 10-22-2024 MCHC (RBC) [Mass/Vol] 32.2 g/dL 32-36 [facility] Mean platelet volume determi nationOrdered By: Safia Ruelas on 10-22-2024 Platelet mean volume (Bld) [Entitic vol] 11.2 fL 6.2-12.0 [facility] [place] Monocyte percentageOrdered B y: Safia Ruelas on 10-22-2024 Monocytes/100 WBC (Bld) 7.7 % 0-10 [facility] Neutrophil percentageOrdered By: [facility] on 10-22-2024 Neutrophils/100 WBC (Bld) 52.1 % 47-70 [facility] [place] Nucleated red blood cell per centageOrdered By: Safia Ruelas on 10-22-2024 Nucleated RBC/100 WBC (Bld) [Ratio] 0 % 0-5 [facility] [place] Platelet countOrdered By: Balbir jean mariejosé antonio Ruelas on 10-22-2024 Platelets (Bld) [#/Vol] 334 10*3/uL 150-450 [facility] [place] Potassium measurement (mass/ volume)Ordered By: Safia Ruelas on 10-22-2024 Potassium (Unsp spec) [Mass/Vol] 3.7 mmol/L 3.3-5.1 [facility] RBC Auto (Bld) [#/Vol]Ordere d By: Safia Ruelas on 10-22-2024 RBC (Bld) [#/Vol] 4.43 10*6/uL 4.2-5.4 [facility] Serum creatinine measurement (mass/volume)Ordered By: Safia Ruelas on 10-22-2024 Creatinine [Mass/Vol] 0.96 mg/dL 0.70-1.20 [facility] Serum glucose measurement (m ass/volume)Ordered By: Safia Ruelas on 10-22-2024 Glucose [Mass/Vol] 106 mg/dL High 70-99 [facility] Serum or plasma calcium dayna urement (mass/volume)Ordered By: Safia Ruelas on 10-22-2024 Calcium [Mass/Vol] 9.4 mg/dL 7.6-11.0 [facility] Serum or plasma urea nitroge n measurement (mass/volume)Ordered By: Safia Ruelas on 10-22-2024 Urea nitrogen [Mass/Vol] 28 mg/dL High 4-19 [facility] Sodium levelOrdered By: Leonides Ruelas on 10-22-2024 Sodium [Moles/Vol] 138 mmol/L 133-145 [facility] TSH DL <= 0.005 mIU/L QnOrde red By: Safia Ruelas on 10-22-2024 TSH Qn 4.630 uIU/mL High 0.300-4.200 [facility] [place] White blood cell (WBC) count Ordered By: Safia Ruelas on 10-22-2024 WBC (Bld) [#/Vol] 8.8 10*3/uL 4.4-11.0 [facility] Absolute lymphocyte countOrd ered By: Safia Ruelas on 10-15-2024 Lymphocytes Auto (Unsp spec) [#/Vol] 3.04 10*3/uL 0.83-4.51 [facility] [place] Absolute neutrophil countOrd ered By: Safia Ruelas on 10-15-2024 Neutrophils (Bld) [#/Vol] 4.3 10*3/uL 2.0-7.7 [facility] [place] Anion gap in Serum or Plasma Ordered By: Safia Ruelas on 10-15-2024 Anion gap [Moles/Vol] 12 mmol/L 5-15 [facility] Automated lymphocyte count a s percentage of total leukocytesOrdered By: Safia Ruelas on 10-15-2024 Lymphocytes/100 WBC Auto (Unsp spec) 36.7 % 19-41 [facility] [place] BUN/creatinine ratioOrdered By: Safia Ruelas on 10-15-2024 Urea nitrogen/Creatinine [Mass ratio] 36.5 mg/mg High 10-20 [facility] [place] Basophil percentageOrdered B y: Safia Ruelas on 10-15-2024 Basophils/100 WBC (Bld) 0.7 % 0-1 [facility] Carbon dioxide, total [Moles /volume] in Central venous bloodOrdered By: Safia Ruelas on 10-15-2024 CO2 [Moles/Vol] 25.2 mmol/L 21.0-32.0 [facility] [place] Chloride assayOrdered By: Balbir jean mariejosé antonio Ruelas on 10-15-2024 Chloride [Moles/Vol] 100 mmol/L 98-108 [facility] Eosinophil percentageOrdered By: Leonidesdefianceskye Ruelas on 10-15-2024 Eosinophils/100 WBC (Bld) 2.4 % 0-5 [facility] [place] Erythrocyte distribution wid th ratioOrdered By: jean mariedefianceskye Ruelas on 10-15-2024 Erythrocyte distribution width (RBC) [Ratio] 13.5 % 11.6-14.6 [facility] [place] Erythrocyte distribution wid th standard deviationOrdered By: [facility] on 10-15-2024 Erythrocyte distribution width (RBC) [Ratio] 45.2 fl High 35.1-43.9 [facility] [place] Glomerular filtration rate ( GFR) estimation/1.73 sq m using serum, plasma, or whole bOrdered By: Safia Ruelas on 10-15-2024 GFR/1.73 sq M.predicted among non-blacks MDRD (S/P/Bld) [Vol rate/Area] 71 mL/min/{1.73_m2} >60 [facility] [place] Comment on above: mL/min/1.73m2 CKD-EP I Creatinine Equation (2020) Hematocrit Auto (Bld) [Volum e fraction]Ordered By: Safia Ruelas on 10-15-2024 Hematocrit (Bld) [Volume fraction] 40.3 % 37-47 [facility] [place] Hemoglobin measurementOrdere d By: Safia Ruelas on 10-15-2024 Hemoglobin (Bld) [Mass/Vol] 13.3 g/dL 12.0-15.0 [facility] [place] Immature granulocytes/100 WB C Auto (Bld)Ordered By: Safia Ruelas on 10-15-2024 Immature granulocytes/100 WBC (Bld) 0.400 % 0.0-0.9 [facility] [place] Comment on above: IG% - Immature Granu locytes (promyelocytes, myelocytes and metamyelocytes) > 1% indicates that a LEFT SHIFT is Present. MCV (mean corpuscular volume ) determinationOrdered By: aSfia Ruelas on 10-15-2024 MCV (RBC) [Entitic vol] 91.0 fL 81-99 [facility] Mean corpuscular hemoglobin (MCH) determinationOrdered By: Safia Ruelas on 10-15-2024 MCH (RBC) [Entitic mass] 30.0 pg 27.0-32.0 [facility] [place] Mean corpuscular hemoglobin concentration (MCHC) determinationOrdered By: Safia Ruelas on 10-15-2024 MCHC (RBC) [Mass/Vol] 33.0 g/dL 32-36 [facility] Mean platelet volume determi nationOrdered By: Safia Ruelas on 10-15-2024 Platelet mean volume (Bld) [Entitic vol] 11.9 fL 6.2-12.0 [facility] [place] Monocyte percentageOrdered B y: Safia Ruelas on 10-15-2024 Monocytes/100 WBC (Bld) 8.2 % 0-10 [facility] Neutrophil percentageOrdered By: Safia Ruelas on 10-15-2024 Neutrophils/100 WBC (Bld) 51.6 % 47-70 [facility] [place] Nucleated red blood cell per centageOrdered By: Safia Ruelas on 10-15-2024 Nucleated RBC/100 WBC (Bld) [Ratio] 0 % 0-5 [facility] Platelet countOrdered By: Balbir Ruelas on 10-15-2024 Platelets (Bld) [#/Vol] 221 10*3/uL 150-450 [facility] Potassium measurement (mass/ volume)Ordered By: Safia Ruelas on 10-15-2024 Potassium (Unsp spec) [Mass/Vol] 3.8 mmol/L 3.3-5.1 [facility] RBC Auto (Bld) [#/Vol]Ordere d By: Safia Ruelas on 10-15-2024 RBC (Bld) [#/Vol] 4.43 10*6/uL 4.2-5.4 [facility] Serum creatinine measurement (mass/volume)Ordered By: Safia Ruelas on 10-15-2024 Creatinine [Mass/Vol] 0.83 mg/dL 0.70-1.20 [facility] Serum glucose measurement (m ass/volume)Ordered By: Safia Ruelas on 10-15-2024 Glucose [Mass/Vol] 68 mg/dL Low 70-99 [facility] Serum or plasma calcium dayna urement (mass/volume)Ordered By: Safia Ruelas on 10-15-2024 Calcium [Mass/Vol] 9.3 mg/dL 7.6-11.0 [facility] Serum or plasma urea nitroge n measurement (mass/volume)Ordered By: Safia Ruelas on 10-15-2024 Urea nitrogen [Mass/Vol] 30 mg/dL High 4-19 [facility] Sodium levelOrdered By: Leonides Ruelas on 10-15-2024 Sodium [Moles/Vol] 138 mmol/L 133-145 [facility] White blood cell (WBC) count Ordered By: Safia Ruelas on 10-15-2024 WBC (Bld) [#/Vol] 8.3 10*3/uL 4.4-11.0 [facility] Absolute lymphocyte countOrd ered By: Safia Ruelas on 10-08-2024 Lymphocytes Auto (Unsp spec) [#/Vol] 2.52 10*3/uL 0.83-4.51 [facility] [place] Absolute neutrophil countOrd ered By: Safia Ruelas on 10-08-2024 Neutrophils (Bld) [#/Vol] 4.9 10*3/uL 2.0-7.7 [facility] [place] Anion gap in Serum or Plasma Ordered By: Safia Ruelas on 10-08-2024 Anion gap [Moles/Vol] 14 mmol/L 5-15 [facility] Automated lymphocyte count a s percentage of total leukocytesOrdered By: Safia Ruelas on 10-08-2024 Lymphocytes/100 WBC Auto (Unsp spec) 29.4 % 19-41 [facility] [place] BUN/creatinine ratioOrdered By: Safia Ruelas on 10-08-2024 Urea nitrogen/Creatinine [Mass ratio] 34.1 mg/mg High 10-20 [facility] [place] Basophil percentageOrdered B y: Safia Ruleas on 10-08-2024 Basophils/100 WBC (Bld) 0.7 % 0-1 [facility] Carbon dioxide, total [Moles /volume] in Central venous bloodOrdered By: Safia Ruelas on 10-08-2024 CO2 [Moles/Vol] 24.0 mmol/L 21.0-32.0 [facility] Chloride assayOrdered By: Balbir Ruelas on 10-08-2024 Chloride [Moles/Vol] 100 mmol/L 98-108 [facility] Eosinophil percentageOrdered By: Safia Ruelas on 10-08-2024 Eosinophils/100 WBC (Bld) 2.6 % 0-5 [facility] Erythrocyte distribution wid th ratioOrdered By: Safia Ruelas on 10-08-2024 Erythrocyte distribution width (RBC) [Ratio] 13.2 % 11.6-14.6 [facility] [place] Erythrocyte distribution wid th standard deviationOrdered By: Safia Ruelas on 10-08-2024 Erythrocyte distribution width (RBC) [Ratio] 45.3 fl High 35.1-43.9 [facility] [place] Glomerular filtration rate ( GFR) estimation/1.73 sq m using serum, plasma, or whole bOrdered By: Safia Ruelas on 10-08-2024 GFR/1.73 sq M.predicted among non-blacks MDRD (S/P/Bld) [Vol rate/Area] 65 mL/min/{1.73_m2} >60 [facility] Comment on above: mL/min/1.73m2 CKD-EP I Creatinine Equation (2020) Hematocrit Auto (Bld) [Volum e fraction]Ordered By: Safia Ruelas on 10-08-2024 Hematocrit (Bld) [Volume fraction] 41.7 % 37-47 [facility] Hemoglobin measurementOrdere d By: Safia Ruelas on 10-08-2024 Hemoglobin (Bld) [Mass/Vol] 13.3 g/dL 12.0-15.0 [facility] [place] Immature granulocytes/100 WB C Auto (Bld)Ordered By: jean mariedefianceskye Ruelas on 10-08-2024 Immature granulocytes/100 WBC (Bld) 0.400 % 0.0-0.9 [facility] [place] Comment on above: IG% - Immature Granu locytes (promyelocytes, myelocytes and metamyelocytes) > 1% indicates that a LEFT SHIFT is Present. MCV (mean corpuscular volume ) determinationOrdered By: Safia Ruelas on 10-08-2024 MCV (RBC) [Entitic vol] 92.7 fL 81-99 [facility] Mean corpuscular hemoglobin (MCH) determinationOrdered By: Safia Ruelas on 10-08-2024 MCH (RBC) [Entitic mass] 29.6 pg 27.0-32.0 [facility] [place] Mean corpuscular hemoglobin concentration (MCHC) determinationOrdered By: Safia Ruelas on 10-08-2024 MCHC (RBC) [Mass/Vol] 31.9 g/dL Low 32-36 [facility] Mean platelet volume determi nationOrdered By: Safia Ruelas on 10-08-2024 Platelet mean volume (Bld) [Entitic vol] 11.0 fL 6.2-12.0 [facility] Monocyte percentageOrdered B y: Safia Ruelas on 10-08-2024 Monocytes/100 WBC (Bld) 9.2 % 0-10 [facility] Neutrophil percentageOrdered By: Safia Ruelas on 10-08-2024 Neutrophils/100 WBC (Bld) 57.7 % 47-70 [facility] Nucleated red blood cell per centageOrdered By: Safia Ruelas on 10-08-2024 Nucleated RBC/100 WBC (Bld) [Ratio] 0 % 0-5 [facility] Platelet countOrdered By: Balbir Ruelas on 10-08-2024 Platelets (Bld) [#/Vol] 323 10*3/uL 150-450 [facility] Potassium measurement (mass/ volume)Ordered By: Safia Ruelas on 10-08-2024 Potassium (Unsp spec) [Mass/Vol] 4.1 mmol/L 3.3-5.1 [facility] RBC Auto (Bld) [#/Vol]Ordere d By: Safia Ruelas on 10-08-2024 RBC (Bld) [#/Vol] 4.50 10*6/uL 4.2-5.4 [facility] Serum creatinine measurement (mass/volume)Ordered By: Safia Ruelas on 10-08-2024 Creatinine [Mass/Vol] 0.90 mg/dL 0.70-1.20 [facility] Serum glucose measurement (m ass/volume)Ordered By: Safia Ruelas on 10-08-2024 Glucose [Mass/Vol] 82 mg/dL 70-99 [facility] Serum or plasma calcium dayna urement (mass/volume)Ordered By: Safia Ruelas on 10-08-2024 Calcium [Mass/Vol] 9.6 mg/dL 7.6-11.0 [facility] Serum or plasma urea nitroge n measurement (mass/volume)Ordered By: Safia Ruelas on 10-08-2024 Urea nitrogen [Mass/Vol] 31 mg/dL High 4-19 [facility] Sodium levelOrdered By: Leonides Ruelas on 10-08-2024 Sodium [Moles/Vol] 138 mmol/L 133-145 [facility] White blood cell (WBC) count Ordered By: Safia Ruelas on 10-08-2024 WBC (Bld) [#/Vol] 8.6 10*3/uL 4.4-11.0 [facility] 12 Lead EKG performed by [facility] on 10-02-2024 12 Lead EKG performed by [facility] [address] [place] [address] 12 Lead EKG performed by [facility] 10/02/24920 MR#: [id number] Acct: [id number] Name: LINDSAY ACUNA Rep #: [id number] : 1945 78 From: Mj Benavides MD Attending Dr: Dr. Mj Benavides MD Status: DEP A MB Ordering Dr: Mj Benavides MD Date: 10/02/24 Location: [facility] Sex: F C Admitted: BMS/12 Lead EKG performed by [facility] ECG Report Interpretation ---Atrial fibrillation -irregular conduction -Old anterior infarct. ABNORMAL Electronically signed on 10/02/2024 at 16:06 by Mj Benavides [employer] Version [id number] 10/02/24 1608 Date Mj Benavides MD CC: Dr. Kameron Caruso MD Date Dictated: 10/02/24920 Date Transcribed: 10/02/24920 Fishing Reel Assembler: [place] Signed Normal [facility] Cardiology Visit Reporton Cardiology Visit Report [facility] [address] [place] [address] OFFICE VISIT Date of Service: 10/02/24 MR#: [id number] Acct: [id number] Name: LINDSAY ACUNA Rep #: [id number] : 1945 Provider: Dr. 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 Accompanied by: Significant Other Is [...] [facility] Absolute lymphocyte countOrd ered By: Safia Ruelas on 10-01-2024 Lymphocytes Auto (Unsp spec) [#/Vol] 2.45 10*3/uL 0.83-4.51 [facility] Absolute neutrophil countOrd ered By: Safia Griderbonimelanie on 10-01-2024 Neutrophils (Bld) [#/Vol] 6.5 10*3/uL 2.0-7.7 [facility] Anion gap in Serum or Plasma Ordered By: Safia Ruelas on 10-01-2024 Anion gap [Moles/Vol] 12 mmol/L 5- [facility] Automated lymphocyte count a s percentage of total leukocytesOrdered By: Safia Ruelas on 10-01-2024 Lymphocytes/100 WBC Auto (Unsp spec) 23.1 % 19- [facility] BUN/creatinine ratioOrdered By: Safia Ruelas on 10-01-2024 Urea nitrogen/Creatinine [Mass ratio] 24.9 mg/mg High 10- [facility] Basophil percentageOrdered B y: Safia Ruelas on 10-01-2024 Basophils/100 WBC (Bld) 0.5 % 0-1 [facility] Carbon dioxide, total [Moles /volume] in Central venous bloodOrdered By: Safia Ruelas on 10-01-2024 CO2 [Moles/Vol] 24.4 mmol/L 21.0-32.0 [facility] Chloride assayOrdered By: Balbir Ruelas on 10-01-2024 Chloride [Moles/Vol] 99 mmol/L 98-108 [facility] Eosinophil percentageOrdered By: sherry Ruelas on 10-01-2024 Eosinophils/100 WBC (Bld) 2.0 % 0-5 [facility] Erythrocyte distribution wid th ratioOrdered By: Safia Ruelas on 10-01-2024 Erythrocyte distribution width (RBC) [Ratio] 13.5 % 11.6-14.6 [facility] Erythrocyte distribution wid th standard deviationOrdered By: Safia Ruelas on 10-01-2024 Erythrocyte distribution width (RBC) [Ratio] 46.2 fl High 35.1-43.9 [facility] Glomerular filtration rate ( GFR) estimation/1.73 sq m using serum, plasma, or whole bOrdered By: Safia Ruelas on 10-01-2024 GFR/1.73 sq M.predicted among non-blacks MDRD (S/P/Bld) [Vol rate/Area] 63 mL/min/{1.73_m2} >60 [facility] Comment on above: mL/min/1.73m2 CKD-EP I Creatinine Equation (2020) Hematocrit Auto (Bld) [Volum e fraction]Ordered By: Safia Ruelas on 10-01-2024 Hematocrit (Bld) [Volume fraction] 38.7 % 37-47 [facility] Hemoglobin measurementOrdere d By: Safia Ruelas on 10-01-2024 Hemoglobin (Bld) [Mass/Vol] 12.5 g/dL 12.0-15.0 [facility] Immature granulocytes/100 WB C Auto (Bld)Ordered By: Safia Ruelas on 10-01-2024 Immature granulocytes/100 WBC (Bld) 0.800 % 0.0-0.9 [facility] Comment on above: IG% - Immature Granu locytes (promyelocytes, myelocytes and metamyelocytes) > 1% indicates that a LEFT SHIFT is Present. MCV (mean corpuscular volume ) determinationOrdered By: Safia Ruelas on 10-01-2024 MCV (RBC) [Entitic vol] 93.3 fL 81-99 [facility] Mean corpuscular hemoglobin (MCH) determinationOrdered By: Safia Ruelas on 10-01-2024 MCH (RBC) [Entitic mass] 30.1 pg 27.0-32.0 [facility] Mean corpuscular hemoglobin concentration (MCHC) determinationOrdered By: Leonidesdefianceskye Ruelas on 10-01-2024 MCHC (RBC) [Mass/Vol] 32.3 g/dL 32-36 [facility] Mean platelet volume determi nationOrdered By: Safia Ruelas on 10-01-2024 Platelet mean volume (Bld) [Entitic vol] 11.7 fL 6.2-12.0 [facility] Monocyte percentageOrdered B y: Safia Ruelas on 10-01-2024 Monocytes/100 WBC (Bld) 12.7 % High 0-10 [facility] Neutrophil percentageOrdered By: Safia Cheoquyen on 10-01-2024 Neutrophils/100 WBC (Bld) 60.9 % 47-70 [facility] Nucleated red blood cell per centageOrdered By: Safia Cheoquyen on 10-01-2024 Nucleated RBC/100 WBC (Bld) [Ratio] 0 % 0-5 [facility] Platelet countOrdered By: Balbir sherry Cheoquyen on 10-01-2024 Platelets (Bld) [#/Vol] 371 10*3/uL 150-450 [facility] Potassium measurement (mass/ volume)Ordered By: Safia Griderbonimelanie on 10-01-2024 Potassium (Unsp spec) [Mass/Vol] 4.2 mmol/L 3.3-5.1 [facility] RBC Auto (Bld) [#/Vol]Ordere d By: Safia Ruelas on 10-01-2024 RBC (Bld) [#/Vol] 4.15 10*6/uL Low 4.2-5.4 [facility] Serum creatinine measurement (mass/volume)Ordered By: Balbirsherry Griderbonimelanie on 10-01-2024 Creatinine [Mass/Vol] 0.93 mg/dL 0.70-1.20 [facility] Serum glucose measurement (m ass/volume)Ordered By: Balbirjean mariedesireeskye Griderbonimelanie on 10-01-2024 Glucose [Mass/Vol] 93 mg/dL 70-99 [facility] Serum or plasma calcium dayna urement (mass/volume)Ordered By: Balbirjean mariejosé antonio Cheobonimelanie on 10-01-2024 Calcium [Mass/Vol] 9.5 mg/dL 7.6-11.0 [facility] Serum or plasma urea nitroge n measurement (mass/volume)Ordered By: Safia Griderbonimelanie on 10-01-2024 Urea nitrogen [Mass/Vol] 23 mg/dL High 4-19 [facility] Sodium levelOrdered By: Leonides josé antonio Jessenia on 10-01-2024 Sodium [Moles/Vol] 135 mmol/L 133-145 [facility] White blood cell (WBC) count Ordered By: Leonidesdesireeskye Ruelas on 10-01-2024 WBC (Bld) [#/Vol] 10.6 10*3/uL 4.4-11.0 [facility] Clostridium difficile detect ion by polymerase chain reactionOrdered By: Safia Ruelas on 09-29-2024 C. difficile DNA CHUCKY+probe Ql (Unsp spec) [facility] Absolute lymphocyte countOrd ered By: Safia Ruelas on 09-24-2024 Lymphocytes Auto (Unsp spec) [#/Vol] 2.72 10*3/uL 0.83-4.51 [facility] Absolute neutrophil countOrd ered By: Safia Griderbonimelanie on 09-24-2024 Neutrophils (Bld) [#/Vol] 6.3 10*3/uL 2.0-7.7 [facility] Anion gap in Serum or Plasma Ordered By: Safia Ruelas on 09-24-2024 Anion gap [Moles/Vol] 12 mmol/L 5-15 [facility] Automated lymphocyte count a s percentage of total leukocytesOrdered By: Safia Ruelas on 09-24-2024 Lymphocytes/100 WBC Auto (Unsp spec) 26.3 % 19-41 [facility] BUN/creatinine ratioOrdered By: Safia Ruelas on 09-24-2024 Urea nitrogen/Creatinine [Mass ratio] 36.4 mg/mg High 10-20 [facility] Basophil percentageOrdered B y: Safia Ruelas on 09-24-2024 Basophils/100 WBC (Bld) 0.7 % 0-1 [facility] Carbon dioxide, total [Moles /volume] in Central venous bloodOrdered By: Safia Ruelas on 09-24-2024 CO2 [Moles/Vol] 24.1 mmol/L 21.0-32.0 [facility] Chloride assayOrdered By: Balbir Ruelas on 09-24-2024 Chloride [Moles/Vol] 100 mmol/L 98-108 [facility] Eosinophil percentageOrdered By: Safia Ruelas on 09-24-2024 Eosinophils/100 WBC (Bld) 2.7 % 0-5 [facility] Erythrocyte distribution wid th ratioOrdered By: Safia Ruelas on 09-24-2024 Erythrocyte distribution width (RBC) [Ratio] 13.6 % 11.6-14.6 [facility] Erythrocyte distribution wid th standard deviationOrdered By: Safia Ruelas on 09-24-2024 Erythrocyte distribution width (RBC) [Ratio] 47.1 fl High 35.1-43.9 [facility] Glomerular filtration rate ( GFR) estimation/1.73 sq m using serum, plasma, or whole bOrdered By: Safia Ruelas on 09-24-2024 GFR/1.73 sq M.predicted among non-blacks MDRD (S/P/Bld) [Vol rate/Area] 62 mL/min/{1.73_m2} >60 [facility] Comment on above: mL/min/1.73m2 CKD-EP I Creatinine Equation (2020) Hematocrit Auto (Bld) [Volum e fraction]Ordered By: Safia Ruelas on 09-24-2024 Hematocrit (Bld) [Volume fraction] 41.2 % 37-47 [facility] Hemoglobin measurementOrdere d By: Safia Ruelas on 09-24-2024 Hemoglobin (Bld) [Mass/Vol] 13.0 g/dL 12.0-15.0 [facility] Immature granulocytes/100 WB C Auto (Bld)Ordered By: Safia Ruelas on 09-24-2024 Immature granulocytes/100 WBC (Bld) 1.000 % High 0.0-0.9 [facility] Comment on above: IG% - Immature Granu locytes (promyelocytes, myelocytes and metamyelocytes) > 1% indicates that a LEFT SHIFT is Present. MCV (mean corpuscular volume ) determinationOrdered By: Safia Ruelas on 09-24-2024 MCV (RBC) [Entitic vol] 94.3 fL 81-99 [facility] Mean corpuscular hemoglobin (MCH) determinationOrdered By: Safia Ruelas on 09-24-2024 MCH (RBC) [Entitic mass] 29.7 pg 27.0-32.0 [facility] Mean corpuscular hemoglobin concentration (MCHC) determinationOrdered By: Safia Ruelas on 09-24-2024 MCHC (RBC) [Mass/Vol] 31.6 g/dL Low 32-36 [facility] Mean platelet volume determi nationOrdered By: Safia Ruelas on 09-24-2024 Platelet mean volume (Bld) [Entitic vol] 11.3 fL 6.2-12.0 [facility] Monocyte percentageOrdered B y: Safia Ruelas on 09-24-2024 Monocytes/100 WBC (Bld) 8.9 % 0-10 [facility] Neutrophil percentageOrdered By: Leonidesdefianceskye Ruelas on 09-24-2024 Neutrophils/100 WBC (Bld) 60.4 % 47-70 [facility] Nucleated red blood cell per centageOrdered By: Safia Ruelas on 09-24-2024 Nucleated RBC/100 WBC (Bld) [Ratio] 0 % 0-5 [facility] Platelet countOrdered By: Balbir Ruelas on 09-24-2024 Platelets (Bld) [#/Vol] 441 10*3/uL 150-450 [facility] Potassium measurement (mass/ volume)Ordered By: Safia Ruelas on 09-24-2024 Potassium (Unsp spec) [Mass/Vol] 4.3 mmol/L 3.3-5.1 [facility] RBC Auto (Bld) [#/Vol]Ordere d By: Safia Ruelas on 09-24-2024 RBC (Bld) [#/Vol] 4.37 10*6/uL 4.2-5.4 [facility] Serum creatinine measurement (mass/volume)Ordered By: Safia Ruelas on 09-24-2024 Creatinine [Mass/Vol] 0.93 mg/dL 0.70-1.20 [facility] Serum glucose measurement (m ass/volume)Ordered By: Safia Ruelas on 09-24-2024 Glucose [Mass/Vol] 48 mg/dL Low 70-99 [facility] Serum or plasma calcium dayna urement (mass/volume)Ordered By: Balbirjean mariejosé antonio Cheobonimelanie on 09-24-2024 Calcium [Mass/Vol] 9.5 mg/dL 7.6-11.0 [facility] Serum or plasma urea nitroge n measurement (mass/volume)Ordered By: Safia Ruelas on 09-24-2024 Urea nitrogen [Mass/Vol] 34 mg/dL High 4-19 [facility] Sodium levelOrdered By: Leonides chou Cheobonimelanie on 09-24-2024 Sodium [Moles/Vol] 136 mmol/L 133-145 [facility] White blood cell (WBC) count Ordered By: Safia Ruelas on 09-24-2024 WBC (Bld) [#/Vol] 10.4 10*3/uL 4.4-11.0 [facility] Absolute lymphocyte countOrd ered By: Safia Ruelas on 09-17-2024 Lymphocytes Auto (Unsp spec) [#/Vol] 2.52 10*3/uL 0.83-4.51 [facility] Absolute neutrophil countOrd ered By: Safia Ruelas on 09-17-2024 Neutrophils (Bld) [#/Vol] 5.8 10*3/uL 2.0-7.7 [facility] Anion gap in Serum or Plasma Ordered By: Safia Ruelas on 09-17-2024 Anion gap [Moles/Vol] 12 mmol/L 5-15 [facility] Automated lymphocyte count a s percentage of total leukocytesOrdered By: Safia Ruelas on 09-17-2024 Lymphocytes/100 WBC Auto (Unsp spec) 26.3 % 19-41 [facility] BUN/creatinine ratioOrdered By: Balbirsherry Ruelas on 09-17-2024 Urea nitrogen/Creatinine [Mass ratio] 45.9 mg/mg High 10-20 [facility] Basophil percentageOrdered B y: Safia Ruelas on 09-17-2024 Basophils/100 WBC (Bld) 0.6 % 0-1 [facility] Calculated very low density lipoprotein (VLDL) cholesterol measurementOrdered By: Safia Ruelas on 09-17-2024 Calculated very low density lipoprotein (VLDL) cholesterol measurement 22 mg/dL 5-40 [facility] Carbon dioxide, total [Moles /volume] in Central venous bloodOrdered By: Safia Ruelas on 09-17-2024 CO2 [Moles/Vol] 24.5 mmol/L 21.0-32.0 [facility] Chloride assayOrdered By: Balbir Ruelas on 09-17-2024 Chloride [Moles/Vol] 98 mmol/L 98-108 [facility] Eosinophil percentageOrdered By: Safia Ruelas on 09-17-2024 Eosinophils/100 WBC (Bld) 3.2 % 0-5 [facility] Erythrocyte distribution wid th ratioOrdered By: jean mariedefianceskye Ruelas on 09-17-2024 Erythrocyte distribution width (RBC) [Ratio] 13.4 % 11.6-14.6 [facility] Erythrocyte distribution wid th standard deviationOrdered By: Safia Ruelas on 09-17-2024 Erythrocyte distribution width (RBC) [Ratio] 45.4 fl High 35.1-43.9 [facility] Glomerular filtration rate ( GFR) estimation/1.73 sq m using serum, plasma, or whole bOrdered By: Safia Ruelas on 09-17-2024 GFR/1.73 sq M.predicted among non-blacks MDRD (S/P/Bld) [Vol rate/Area] 69 mL/min/{1.73_m2} >60 [facility] Comment on above: mL/min/1.73m2 CKD-EP I Creatinine Equation (2020) Hematocrit Auto (Bld) [Volum e fraction]Ordered By: Safia Ruelas on 09-17-2024 Hematocrit (Bld) [Volume fraction] 38.8 % 37-47 [facility] Hemoglobin measurementOrdere d By: Safia Ruelas on 09-17-2024 Hemoglobin (Bld) [Mass/Vol] 12.6 g/dL 12.0-15.0 [facility] Immature granulocytes/100 WB C Auto (Bld)Ordered By: Safia Ruelas on 09-17-2024 Immature granulocytes/100 WBC (Bld) 0.700 % 0.0-0.9 [facility] Comment on above: IG% - Immature Granu locytes (promyelocytes, myelocytes and metamyelocytes) > 1% indicates that a LEFT SHIFT is Present. LDL calc ser/plasOrdered By: Safia Ruelas on 09-17-2024 Cholesterol in LDL [Mass/Vol] 120 mg/dL [facility] Comment on above: Knbqwwmtwu=223-175 m g/dL & Higher Fyim=942 mg/dL or greater MCV (mean corpuscular volume ) determinationOrdered By: Safia Ruelas on 09-17-2024 MCV (RBC) [Entitic vol] 91.7 fL 81-99 [facility] Mean corpuscular hemoglobin (MCH) determinationOrdered By: Leonidesdefianceskye Ruelas on 09-17-2024 MCH (RBC) [Entitic mass] 29.8 pg 27.0-32.0 [facility] Mean corpuscular hemoglobin concentration (MCHC) determinationOrdered By: Safia Ruelas on 09-17-2024 MCHC (RBC) [Mass/Vol] 32.5 g/dL 32-36 [facility] Mean platelet volume determi nationOrdered By: Safia Ruelas on 09-17-2024 Platelet mean volume (Bld) [Entitic vol] 11.4 fL 6.2-12.0 [facility] Monocyte percentageOrdered B y: Safia Ruelas on 09-17-2024 Monocytes/100 WBC (Bld) 8.5 % 0-10 [facility] Neutrophil percentageOrdered By: jean mariedefianceskye Ruelas on 09-17-2024 Neutrophils/100 WBC (Bld) 60.7 % 47-70 [facility] Nucleated red blood cell per centageOrdered By: Safia Ruelas on 09-17-2024 Nucleated RBC/100 WBC (Bld) [Ratio] 0 % 0-5 [facility] Platelet countOrdered By: Balbir Ruelas on 09-17-2024 Platelets (Bld) [#/Vol] 311 10*3/uL 150-450 [facility] Potassium measurement (mass/ volume)Ordered By: Safia Ruelas on 09-17-2024 Potassium (Unsp spec) [Mass/Vol] 4.1 mmol/L 3.3-5.1 [facility] RBC Auto (Bld) [#/Vol]Ordere d By: Safia Ruelas on 09-17-2024 RBC (Bld) [#/Vol] 4.23 10*6/uL 4.2-5.4 [facility] Screening total cholesterol/ high density lipoprotein (HDL) cholesterol ratioOrdered By: Safia Ruelas on 09-17-2024 Cholesterol.total/Alta sterol in HDL [Mass ratio] 5.38 {ratio} [facility] Serum creatinine measurement (mass/volume)Ordered By: Safia Ruelas on 09-17-2024 Creatinine [Mass/Vol] 0.86 mg/dL 0.70-1.20 [facility] Serum glucose measurement (m ass/volume)Ordered By: Safia Ruelas on 09-17-2024 Glucose [Mass/Vol] 216 mg/dL High 70-99 [facility] Serum or plasma calcium dayna urement (mass/volume)Ordered By: Safia Ruelas on 09-17-2024 Calcium [Mass/Vol] 9.4 mg/dL 7.6-11.0 [facility] Serum or plasma cholesterol in HDL measurement (mass/volume)Ordered By: Safia Ruelas on 09-17-2024 Cholesterol in HDL [Mass/Vol] 33 mg/dL Low >40 [facility] Comment on above: National Cholesterol Education Program (NCEP) guidelines:<40 mg/dL: Low HDL-cholesterol (major risk factor for CHD)>= 60 mg/dL: High HDL-cholesterol (negative risk factor for CHD)HDL-cholesterol is affected by a number of factors, e.g. smoking, exercise, hormones, sex and age. Serum or plasma cholesterol measurement (mass/volume)Ordered By: Safia Ruelas on 09-17-2024 Cholesterol [Mass/Vol] 175 mg/dL <201 [facility] Comment on above: Cholesterol level, D esirable <200 mg/dLBorderline high cholesterol 200-239 mg/dLHigh cholesterol >=240 mg/dLRecommendations of the NCEP Adult Treatment Panel for the following risk-cutoff thresholds for the [place] population. Serum or plasma urea nitroge n measurement (mass/volume)Ordered By: Safia Ruelas on 09-17-2024 Urea nitrogen [Mass/Vol] 39 mg/dL High 4-19 [facility] Sodium levelOrdered By: Leonides jiméneztadmelanie Ruelas on 09-17-2024 Sodium [Moles/Vol] 134 mmol/L 133-145 [facility] TSH DL <= 0.005 mIU/L QnOrde red By: Safia Ruelas on 09-17-2024 TSH Qn 3.500 uIU/mL 0.300-4.200 [facility] Triglycerides measurementOrd ered By: Safia Ruelas on 09-17-2024 Triglyceride [Mass/Vol] 111 mg/dL <199 [facility] Comment on above: The drugs N-Acetylcy steine and Metamizole may falsely depress this assay. Normal range: <150 mg/dLBorderline High: 150-199 mg/dLHigh: 200-499 mg/dLVery High: >500 mg/dL White blood cell (WBC) count Ordered By: Safia Ruelas on 09-17-2024 WBC (Bld) [#/Vol] 9.6 10*3/uL 4.4-11.0 [facility] Absolute lymphocyte countOrd ered By: Safia Ruelas on 09-10-2024 Lymphocytes Auto (Unsp spec) [#/Vol] 2.11 10*3/uL 0.83-4.51 [facility] Absolute neutrophil countOrd ered By: Safia Ruelas on 09-10-2024 Neutrophils (Bld) [#/Vol] 8.1 10*3/uL High 2.0-7.7 [facility] Anion gap in Serum or Plasma Ordered By: Safia Ruelas on 09-10-2024 Anion gap [Moles/Vol] 13 mmol/L 5-15 [facility] Automated lymphocyte count a s percentage of total leukocytesOrdered By: Safia Ruelas on 09-10-2024 Lymphocytes/100 WBC Auto (Unsp spec) 17.9 % Low 19-41 [facility] BUN/creatinine ratioOrdered By: Safia Reulas on 09-10-2024 Urea nitrogen/Creatinine [Mass ratio] 29.1 mg/mg High 10-20 [facility] Basophil percentageOrdered B y: Safia Ruelas on 09-10-2024 Basophils/100 WBC (Bld) 0.3 % 0-1 [facility] Bilirubin, totalOrdered By: Safia Cheobonimelanie on 09-10-2024 Bilirubin [Mass/Vol] 0.55 mg/dL 0.00-1.30 [facility] Carbon dioxide, total [Moles /volume] in Central venous bloodOrdered By: Balbirjean mariedesireeskye Griderbonimelanie on 09-10-2024 CO2 [Moles/Vol] 23.6 mmol/L 21.0-32.0 [facility] Chloride assayOrdered By: Balbir sherry Cheobonimelanie on 09-10-2024 Chloride [Moles/Vol] 97 mmol/L Low 98-108 [facility] Eosinophil percentageOrdered By: Safia Ruelas on 09-10-2024 Eosinophils/100 WBC (Bld) 0.5 % 0-5 [facility] Erythrocyte distribution wid th ratioOrdered By: Balbirjean mariejosé antonio Westonmelanie on 09-10-2024 Erythrocyte distribution width (RBC) [Ratio] 13.4 % 11.6-14.6 [facility] Erythrocyte distribution wid th standard deviationOrdered By: Leonidesdesireeskye Griderbonimelanie on 09-10-2024 Erythrocyte distribution width (RBC) [Ratio] 45.2 fl High 35.1-43.9 [facility] [facility] [place] Glomerular filtration rate ( GFR) estimation/1.73 sq m using serum, plasma, or whole bOrdered By: Balbirjean mariedesireeskye Griderbonimelanie on 09-10-2024 GFR/1.73 sq M.predicted among non-blacks MDRD (S/P/Bld) [Vol rate/Area] 59 mL/min/{1.73_m2} Low >60 [facility] [place] Comment on above: mL/min/1.73m2 CKD-EP I Creatinine Equation (2020) Hematocrit Auto (Bld) [Volum e fraction]Ordered By: Safia Ruelas on 09-10-2024 Hematocrit (Bld) [Volume fraction] 41.8 % 37-47 [facility] [place] Hemoglobin measurementOrdere d By: Safia Ruelas on 09-10-2024 Hemoglobin (Bld) [Mass/Vol] 13.4 g/dL 12.0-15.0 [facility] [place] Immature granulocytes/100 WB C Auto (Bld)Ordered By: Safia Ruelas on 09-10-2024 Immature granulocytes/100 WBC (Bld) 0.800 % 0.0-0.9 [facility] [place] Comment on above: IG% - Immature Granu locytes (promyelocytes, myelocytes and metamyelocytes) > 1% indicates that a LEFT SHIFT is Present. Laboratory - Chemistry and C hemistry - challengeOrdered By: Safia Ruelas on 09-10-2024 AST [Catalytic activity/Vol] 21 U/L <32 [facility] [place] MCV (mean corpuscular volume ) determinationOrdered By: Safia Ruelas on 09-10-2024 MCV (RBC) [Entitic vol] 92.5 fL 81-99 [facility] Mean corpuscular hemoglobin (MCH) determinationOrdered By: Safia Ruelas on 09-10-2024 MCH (RBC) [Entitic mass] 29.6 pg 27.0-32.0 [facility] [place] Mean corpuscular hemoglobin concentration (MCHC) determinationOrdered By: Safia Ruelas on 09-10-2024 MCHC (RBC) [Mass/Vol] 32.1 g/dL 32-36 [facility] Mean platelet volume determi nationOrdered By: Safia Ruelas on 09-10-2024 Platelet mean volume (Bld) [Entitic vol] 12.6 fL High 6.2-12.0 [facility] [place] Monocyte percentageOrdered B y: Safia Ruelas on 09-10-2024 Monocytes/100 WBC (Bld) 12.3 % High 0-10 [facility] Neutrophil percentageOrdered By: Safia Ruelas on 09-10-2024 Neutrophils/100 WBC (Bld) 68.2 % 47-70 [facility] [place] No Panel InformationOrdered By: Safia Ruelas on 09-10-2024 21 U/L <32 [facility] [place] Nucleated red blood cell per centageOrdered By: Safia Ruelas on 09-10-2024 Nucleated RBC/100 WBC (Bld) [Ratio] 0 % 0-5 [facility] [place] Platelet countOrdered By: Balbir Ruelas on 09-10-2024 Platelets (Bld) [#/Vol] 190 10*3/uL 150-450 [facility] [place] Potassium measurement (mass/ volume)Ordered By: Safia Ruelas on 09-10-2024 Potassium (Unsp spec) [Mass/Vol] 4.3 mmol/L 3.3-5.1 [facility] [place] RBC Auto (Bld) [#/Vol]Ordere d By: Safia Ruelas on 09-10-2024 RBC (Bld) [#/Vol] 4.52 10*6/uL 4.2-5.4 [facility] Serum creatinine measurement (mass/volume)Ordered By: Safia Ruelas on 09-10-2024 Creatinine [Mass/Vol] 0.98 mg/dL 0.70-1.20 [facility] Serum globulin measurementOr dered By: Safia Ruelas on 09-10-2024 Globulin (S) [Mass/Vol] 3.3 g/dL 2.2-4.2 [facility] Serum glucose measurement (m ass/volume)Ordered By: Safia Ruelas on 09-10-2024 Glucose [Mass/Vol] 181 mg/dL High 70-99 [facility] Serum or plasma alanine raymundo otransferase (ALT) measurementOrdered By: Safia Ruelas 09-10-2024 ALT [Catalytic activity/Vol] 26 U/L <35 [facility] [place] Serum or plasma albumin dayna urement (mass/volume)Ordered By: Safia Ruelas 09-10-2024 Albumin [Mass/Vol] 3.4 g/dL 3.4-4.8 [facility] Serum or plasma albumin/glob ulin mass ratioOrdered By: Balbirsherry Ruelas on 09-10-2024 Albumin/Globulin [Mass ratio] 1.0 {ratio} 0.9-2.4 [facility] [place] Serum or plasma alkaline hannah sphatase measurementOrdered By: Balbirsherry Griderbonimelanie on 09-10-2024 ALP [Catalytic activity/Vol] 114 U/L High 35-104 [facility] [place] Serum or plasma calcium dayna urement (mass/volume)Ordered By: Safia Ruelas on 09-10-2024 Calcium [Mass/Vol] 9.3 mg/dL 7.6-11.0 [facility] Serum or plasma urea nitroge n measurement (mass/volume)Ordered By: Balbirsherry Ruelas on 09-10-2024 Urea nitrogen [Mass/Vol] 29 mg/dL High 4-19 [facility] [place] Sodium levelOrdered By: Leonides josé antonio Jessenia on 09-10-2024 Sodium [Moles/Vol] 133 mmol/L 133-145 [facility] Total proteinOrdered By: Augustomelanie ervin Jessenia on 09-10-2024 Protein [Mass/Vol] 6.7 g/dL 5.9-8.4 [facility] White blood cell (WBC) count Ordered By: Balbirjean mariedesireeskye Ruelas on 09-10-2024 WBC (Bld) [#/Vol] 11.8 10*3/uL High 4.4-11.0 [facility] LABORATORYOrdered By: Abigail Smith on 09-09-2024 Glucose [Mass/Vol] 212 mg/dL High 82 - 115 mg/dL [employer] Work Phone: Glucose [Mass/Vol] 226 mg/dL High 82 - 115 mg/dL [employer] Work Phone: LABORATORYOrdered By: Zoila Zarco on 09-08-2024 Glucose [Mass/Vol] 149 mg/dL High 82 - 115 mg/dL [employer] Work Phone: LABORATORYOrdered By: Rob Palmer on 09-08-2024 Blood Glucose Testing Reason Routine (09/08/24 6:16 PM) [employer] [place] Work Phone: Blood Glucose Testing Reason Routine (09/08/24 11:58 AM) [employer] Work Phone: LABORATORYOrdered By: Rob Palmer on 09-07-2024 Blood Glucose Testing Reason Routine (09/07/24 4:46 PM) [employer] Work Phone: .Auto Diffon 09-03-2024 Basophil, Absolute 0.1 10 3/mcL Normal 0.0-0.3 [facility] Comment on above: Performed By: #### A DIFF, CBC, ANEU, GFR, BMP #### [address] [address] Basophils/100 WBC (Bld) 1.0 % Normal 0.0-2.5 [facility] Comment on above: Performed By: #### A DIFF, CBC, ANEU, GFR, BMP #### [address] [address] Eosinophil, Absolute 0.2 10 3/mcL Normal 0.0-0.7 [facility] Comment on above: Performed By: #### A DIFF, CBC, ANEU, GFR, BMP #### [address] [address] Eosinophils/100 WBC (Bld) 3.2 % Normal 0.0-6.0 [facility] Comment on above: Performed By: #### A DIFF, CBC, ANEU, GFR, BMP #### [address] [address] Lymphocyte, Absolute 2.0 10 3/mcL Normal 0.9-4.3 [facility] Comment on above: Performed By: #### A DIFF, CBC, ANEU, GFR, BMP #### [address] [address] Lymphocytes/100 WBC (Bld) 26.6 % Normal 20.0-40.0 [facility] Comment on above: Performed By: #### A DIFF, CBC, ANEU, GFR, BMP #### [address] [address] Monocyte, Absolute 0.7 10 3/mcL Normal 0.1-1.4 [facility] Comment on above: Performed By: #### A DIFF, CBC, ANEU, GFR, BMP #### [address] [address] Monocytes/100 WBC (Bld) 9.7 % Normal 2.0-13.0 [facility] Comment on above: Performed By: #### A DIFF, CBC, ANEU, GFR, BMP #### [address] [address] Neutrophils/100 WBC (Bld) 59.5 % Normal 50.0-75.0 [facility] Comment on above: Performed By: #### A DIFF, CBC, ANEU, GFR, BMP #### [address] [address] .GFRon 09-03-2024 Estimated Glomerular Filtration Rate 57 ml/min/1.73sqm Normal [facility] Comment on above: Result [...] DIFF, CBC, ANEU, GFR, BMP #### [address] [address] .NEUABSon 09-03-2024 Neutrophil, Absolute 4.5 10 3/mcL Normal 2.3-8.1 [facility] Comment on above: Performed By: #### A DIFF, CBC, ANEU, GFR, BMP #### [address] [address] B12on 09-03-2024 Cobalamin (Vitamin B12) [Mass/Vol] 834 pg/mL Normal 211-911 [facility] Comment on above: Performed By: #### A DIFF, CBC, ANEU, GFR, BMP #### [place] [address] CBCon 09-03-2024 Erythrocyte distribution width (RBC) [Ratio] 14.7 % Normal 11.5-15.5 [facility] Comment on above: Performed By: #### A DIFF, CBC, ANEU, GFR, BMP #### [place] [address] Hematocrit (Bld) [Volume fraction] 39.7 % Normal 34.0-46.0 [facility] Comment on above: Performed By: #### A DIFF, CBC, ANEU, GFR, BMP #### [place] [address] Hgb 13.2 G/dL Normal 12.0-16.0 [facility] Comment on above: Performed By: #### A DIFF, CBC, ANEU, GFR, BMP #### [place] [address] MCH (RBC) [Entitic mass] 30.6 pg Normal 27.0-33.0 [facility] Comment on above: Performed By: #### A DIFF, CBC, ANEU, GFR, BMP #### [place] [address] MCHC 33.3 G/dL Normal 32.0-36.0 [facility] Comment on above: Performed By: #### A DIFF, CBC, ANEU, GFR, BMP #### [place] [address] MCV (RBC) [Entitic vol] 91.9 fL Normal 80.0-99.0 [facility] Comment on above: Performed By: #### A DIFF, CBC, ANEU, GFR, BMP #### [place] [id number] Platelet 228 10 3/mcL Normal 150-450 [facility] Comment on above: Performed By: #### A DIFF, CBC, ANEU, GFR, BMP #### [place] [address] Platelet mean volume (Bld) [Entitic vol] 10.1 fL Normal 6.6-10.5 [facility] Comment on above: Performed By: #### A DIFF, CBC, ANEU, GFR, BMP #### [place] [address] RBC 4.32 10 6/mcL Normal 4.10-5.30 [facility] Comment on above: Performed By: #### A DIFF, CBC, ANEU, GFR, BMP #### [place] [address] WBC 7.6 10 3/mcL Normal 4.5-10.8 [facility] Comment on above: Performed By: #### A DIFF, CBC, ANEU, GFR, BMP #### [place] [address] CMPon 09-03-2024 Albumin Level 3.0 G/dL Low 3.2-4.8 [facility] Comment on above: Performed By: #### A DIFF, CBC, ANEU, GFR, BMP #### [place] [address] Albumin/Globulin [Mass ratio] 0.9 {ratio} Normal 0.9-1.6 [facility] Comment on above: Performed By: #### A DIFF, CBC, ANEU, GFR, BMP #### [place] [address] ALP [Catalytic activity/Vol] 115 U/L Normal 38-126 [facility] Comment on above: Performed By: #### A DIFF, CBC, ANEU, GFR, BMP #### [place] [address] ALT [Catalytic activity/Vol] 37 U/L Normal 10-49 [facility] Comment on above: Performed By: #### A DIFF, CBC, ANEU, GFR, BMP #### [place] [address] AST [Catalytic activity/Vol] 31 U/L Normal 8-34 [facility] Comment on above: Performed By: #### A DIFF, CBC, ANEU, GFR, BMP #### [address] [address] Bili Total 0.50 mg/dL Normal 0.20-1.20 [facility] Comment on above: Result Comment: Use of this assay is not recommended for patients undergoing treatment with eltrombopag due to the potential for falsely elevated results. Performed By: #### A DIFF, CBC, ANEU, GFR, BMP #### [place] [address] BUN/Creatinine Ratio 29.7 ratio High 10.0-22.0 [facility] Comment on above: Performed By: #### A DIFF, CBC, ANEU, GFR, BMP #### [place] [id number] Calcium [Mass/Vol] 9.6 mg/dL Normal 8.7-10.[address] [facility] Comment on above: Performed By: #### A DIFF, CBC, ANEU, GFR, BMP #### [place] [address] Chloride [Moles/Vol] 101 mmol/L Normal 98-110 [facility] Comment on above: Performed By: #### A DIFF, CBC, ANEU, GFR, BMP #### [place] [address] CO2 [Moles/Vol] 27 mmol/L Normal 22-32 [facility] Comment on above: Performed By: #### A DIFF, CBC, ANEU, GFR, BMP #### [place] [address] Creatinine [Mass/Vol] 1.01 mg/dL Normal 0.50-1.20 [facility] Comment on above: Result Comment: Test ing performed on Mesuro analyzer using enzymatic creatinine methodology. Performed By: #### A DIFF, CBC, ANEU, GFR, BMP #### [place] [id number] Electrolyte Balance 10.0 mEq/L Normal 4.0-15.0 [facility] Comment on above: Performed By: #### A DIFF, CBC, ANEU, GFR, BMP #### [place] [id number] Globulin 3.4 G/dL Normal 1.5-3.8 [facility] Comment on above: Performed By: #### A DIFF, CBC, ANEU, GFR, BMP #### [address] [address] Glucose [Mass/Vol] 187 mg/dL High 82-[address] [facility] Comment on above: Performed By: #### A DIFF, CBC, ANEU, GFR, BMP #### [address] [address] Potassium [Moles/Vol] 4.6 mmol/L Normal 3.5-5.0 [facility] Comment on above: Performed By: #### A DIFF, CBC, ANEU, GFR, BMP #### [address] [address] Sodium [Moles/Vol] 138 mmol/L Normal 136-[address] [facility] Comment on above: Performed By: #### A DIFF, CBC, ANEU, GFR, BMP #### [address] [address] Total Protein 6.4 G/dL Normal 5.7-8.2 [facility] Comment on above: Performed By: #### A DIFF, CBC, ANEU, GFR, BMP #### [address] [address] Urea nitrogen [Mass/Vol] 30.0 mg/dL High 8.0-22.0 [facility] Comment on above: Performed By: #### A DIFF, CBC, ANEU, GFR, BMP #### [address] [address] LABORATORYOrdered By: Ann Carrillo on 09-03-2024 Glucose [Mass/Vol] 270 mg/dL [facility] Work Phone: LABORATORYOrdered By: SYSTEM [...] above: Interpretive Data: T esting performed on Mesuro analyzer using enzymatic creatinine methodology. Electrolyte Balance [...] TSH 3.920 mIU/mL Normal 0.550-4.780 [facility] Comment on above: Performed By: #### A DIFF, CBC, ANEU, GFR, BMP #### [place] [address] CT HEAD OR BRAIN W/O CONTRAS Ton [...] 09/02/2024 3:10:44 PM Ordering Provider: SILVINO PEARL [facility] [place] 08-30-2024 RANDEE Telephone (FAMPWS) LINDSAY ACUNA ([id number]) 1945 F Date Time Provider Department 08/30/24 KAMERON CARUSO During your visit today, we recorded the following information about you: Jaiden Paulino, RN 08/30/2024 9:11 AM Signed Marya- [facility] reports patient was in [facility] with dx: stroke, and transferred to [facility]. Pt will be discharged from [facility] on 09/07/24 to home with [facility] SN PT OT [facility]. Asking if pcp agreeable to follow for C. Please phone Marya with verbal: [phone] Mj Glover APRN.GARRETT 08/30/2024 9:19 AM Signed Please let know that Dr. Caruso's team will follow orders. Okay to proceed. Mj Glover APRN.Fouzia Reynoso LPN 08/30/2024 10:09 AM Signed Marya with [facility] notified. Allergies As of Date: 08/30/2024 Noted Allergy Reaction BENZOCAINE 07/08/2005 2 - Rash COCAINE 05/28/2008 Comments: Inverted T PERFUMES 07/08/2005 12 - Shortness of Breath Comments: coughes and chokes SULFA (SULFONAMIDE ANTIBIOTICS) 07/08/2005 5 - Intolerance Date Reviewed: 06/26/2024 Reviewed by: Bret Arambula LPN - Fully Assessed Reason for Visit: [facility] requesting verbal agree to follow [Other] Prescriptions [...] Status:Closed by FOUZIA MILLER on 08/30/24 Normal [facility] .Auto Diffon 08-26-2024 Basophil, Absolute 0.1 10 3/mcL Normal 0.0-0.3 [facility] Comment on above: Performed By: #### A DIFF, CBC, ANEU, GFR, BMP #### [address] [address] Basophils/100 WBC (Bld) 1.0 % Normal 0.0-2.5 [facility] Comment on above: Performed By: #### A DIFF, CBC, ANEU, GFR, BMP #### [address] [address] Eosinophil, Absolute 0.3 10 3/mcL Normal 0.0-0.7 [facility] Comment on above: Performed By: #### A DIFF, CBC, ANEU, GFR, BMP #### [address] [address] Eosinophils/100 WBC (Bld) 4.2 % Normal 0.0-6.0 [facility] Comment on above: Performed By: #### A DIFF, CBC, ANEU, GFR, BMP #### [address] [address] Lymphocyte, Absolute 2.2 10 3/mcL Normal 0.9-4.3 [facility] Comment on above: Performed By: #### A DIFF, CBC, ANEU, GFR, BMP #### [address] [address] Lymphocytes/100 WBC (Bld) 26.3 % Normal 20.0-40.0 [facility] Comment on above: Performed By: #### A DIFF, CBC, ANEU, GFR, BMP #### [address] [address] Monocyte, Absolute 0.9 10 3/mcL Normal 0.1-1.4 [facility] Comment on above: Performed By: #### A DIFF, CBC, ANEU, GFR, BMP #### [address] [address] Monocytes/100 WBC (Bld) 11.4 % Normal 2.0-13.0 [facility] Comment on above: Performed By: #### A DIFF, CBC, ANEU, GFR, BMP #### [address] [address] Neutrophils/100 WBC (Bld) 57.1 % Normal 50.0-75.0 [facility] Comment on above: Performed By: #### A DIFF, CBC, ANEU, GFR, BMP #### [address] [address] .GFRon 08-26-2024 Estimated Glomerular Filtration Rate 59 ml/min/1.73sqm Normal [facility] Comment on above: Result [...] DIFF, CBC, ANEU, GFR, BMP #### [address] [address] .NEUABSon 08-26-2024 Neutrophil, Absolute 4.7 10 3/mcL Normal 2.3-8.1 [facility] Comment on above: Performed By: #### A DIFF, CBC, ANEU, GFR, BMP #### [address] [address] BMPon 08-26-2024 BUN/Creatinine Ratio 35.1 ratio High 10.0-22.0 [facility] Comment on above: Performed By: #### A DIFF, CBC, ANEU, GFR, BMP #### [address] [address] Calcium [Mass/Vol] 9.8 mg/dL Normal 8.7-10.[address] [facility] Comment on above: Performed By: #### A DIFF, CBC, ANEU, GFR, BMP #### [address] [address] Chloride [Moles/Vol] 98 mmol/L Normal 98-110 [facility] Comment on above: Performed By: #### A DIFF, CBC, ANEU, GFR, BMP #### [address] [address] CO2 [Moles/Vol] 25 mmol/L Normal 22-32 [facility] Comment on above: Performed By: #### A DIFF, CBC, ANEU, GFR, BMP #### [address] [address] Creatinine [Mass/Vol] 0.97 mg/dL Normal 0.50-1.20 [facility] Comment on above: Result Comment: Test ing performed on Mesuro analyzer using enzymatic creatinine methodology. Performed By: #### A DIFF, CBC, ANEU, GFR, BMP #### [address] [address] Electrolyte Balance 12.0 mEq/L Normal 4.0-15.0 [facility] Comment on above: Performed By: #### A DIFF, CBC, ANEU, GFR, BMP #### [address] [address] Glucose [Mass/Vol] 160 mg/dL High 82-[address] [facility] Comment on above: Performed By: #### A DIFF, CBC, ANEU, GFR, BMP #### [address] [address] Potassium [Moles/Vol] 4.7 mmol/L Normal 3.5-5.0 [facility] Comment on above: Result Comment: Spec imen slightly hemolyzed. Performed By: #### A DIFF, CBC, ANEU, GFR, BMP #### [address] [address] Sodium [Moles/Vol] 135 mmol/L Low 136-[address] [facility] Comment on above: Performed By: #### A DIFF, CBC, ANEU, GFR, BMP #### [place] [address] Urea nitrogen [Mass/Vol] 34.0 mg/dL High 8.0-22.0 [facility] Comment on above: Performed By: #### A DIFF, CBC, ANEU, GFR, BMP #### [place] [address] CBCon 08-26-2024 Erythrocyte distribution width (RBC) [Ratio] 14.0 % Normal 11.5-15.5 [facility] Comment on above: Performed By: #### A DIFF, CBC, ANEU, GFR, BMP #### [place] [address] Hematocrit (Bld) [Volume fraction] 41.0 % Normal 34.0-46.0 [facility] Comment on above: Performed By: #### A DIFF, CBC, ANEU, GFR, BMP #### [place] [address] Hgb 13.4 G/dL Normal 12.0-16.0 [facility] Comment on above: Performed By: #### A DIFF, CBC, ANEU, GFR, BMP #### [place] [address] MCH (RBC) [Entitic mass] 30.0 pg Normal 27.0-33.0 [facility] Comment on above: Performed By: #### A DIFF, CBC, ANEU, GFR, BMP #### [place] [address] MCHC 32.7 G/dL Normal 32.0-36.0 [facility] Comment on above: Performed By: #### A DIFF, CBC, ANEU, GFR, BMP #### [place] [address] MCV (RBC) [Entitic vol] 91.9 fL Normal 80.0-99.0 [facility] Comment on above: Performed By: #### A DIFF, CBC, ANEU, GFR, BMP #### [address] [address] Platelet 297 10 3/mcL Normal 150-450 [facility] Comment on above: Performed By: #### A DIFF, CBC, ANEU, GFR, BMP #### [facility] [address] [place] [address] Platelet mean volume (Bld) [Entitic vol] 11.0 fL High 6.6-10.5 [facility] Comment on above: Performed By: #### A DIFF, CBC, ANEU, GFR, BMP #### [place] [id number] [place] [address] RBC 4.46 10 6/mcL Normal 4.10-5.30 [facility] Comment on above: Performed By: #### A DIFF, CBC, ANEU, GFR, BMP #### [place] [id number] [place] [address] WBC 8.3 10 3/mcL Normal 4.5-10.8 [facility] Comment on above: Performed By: #### A DIFF, CBC, ANEU, GFR, BMP #### [address] [address] LABORATORYOrdered By: SYSTEM SYSTEM on 08-26-2024 Basophils [...] above: Interpretive Data: T esting performed on Mesuro analyzer using enzymatic creatinine methodology. Electrolyte Balance [...] [facility] AND WRIST 6 [...] Sign Date: 08/25/2024 2:27:26 PM Ordering Provider: [facility] XR HUMERUS MINIMUM 2 [...] Sign Date: 08/25/2024 2:26:11 PM Ordering Provider: [facility] XR SHOULDER MINIMUM 2 [...] Sign Date: 08/25/2024 2:26:45 PM Ordering Provider: [facility]IN LABORATORYOrdered By: Kala lux on 08-23-2024 Glucose [Mass/Vol] 278 mg/dL [facility] [place] Work Phone: LABORATORYOrdered By: Kala lux on 08-22-2024 Glucose [Mass/Vol] 320 mg/dL [facility] [place] Work Phone: A1Con 08-21-2024 Glucose [Mass/Vol] 194 mg/dL Normal [facility] Comment on above: Result Comment: Nancy mated Average Glucose calculated by equation ((28.7xA1C)-46.7) Estimated average glucose (eAG) is a calculated value from Hemoglobin A1C and is international account representative of the average blood glucose level in the last 2-3 month period. Normal range: less than 114 mg/dL Performed By: #### A 1C #### [address] [address] HbA1c (Bld) [Mass fraction] 8.4 % High 4.0-6.0 [facility] Comment on above: Performed By: #### A 1C #### [address] [address] LABORATORYOrdered By: SYSTEM SYSTEM on 08-21-2024 Glucose [Mass/Vol] 194 mg/dL Invalid Interpretation Code Auto Chem SS Comment on above: Interpretive Data: E stimated average glucose (eAG) is a calculated value from Hemoglobin A1C and is international account representative of the average blood glucose level in the last 2-3 month period. Normal range: less than 114 mg/dL HbA1c (Bld) [Mass fraction] 8.4 % High 4.0 - 6.0 % Auto Chem SS .Auto Diffon 08-20-2024 Basophil, Absolute 0.1 10 3/mcL Normal 0.0-0.3 [facility] Comment on above: Performed By: #### B MP, ADIFF, CBC, GFR, ANEU #### [address] [address] Basophils/100 WBC (Bld) 1.1 % Normal 0.0-2.5 [facility] Comment on above: Performed By: #### B MP, ADIFF, CBC, GFR, ANEU #### [address] [address] Eosinophil, Absolute 0.3 10 3/mcL Normal 0.0-0.7 [facility] Comment on above: Performed By: #### B MP, ADIFF, CBC, GFR, ANEU #### [address] [address] Eosinophils/100 WBC (Bld) 3.6 % Normal 0.0-6.0 [facility] Comment on above: Performed By: #### B MP, ADIFF, CBC, GFR, ANEU #### [address] [address] Lymphocyte, Absolute 1.7 10 3/mcL Normal 0.9-4.3 [facility] Comment on above: Performed By: #### B MP, ADIFF, CBC, GFR, ANEU #### [address] [address] Lymphocytes/100 WBC (Bld) 20.8 % Normal 20.0-40.0 [facility] Comment on above: Performed By: #### B MP, ADIFF, CBC, GFR, ANEU #### [address] [address] Monocyte, Absolute 0.9 10 3/mcL Normal 0.1-1.4 [facility] MAIN Comment on above: Performed By: #### B MP, ADIFF, CBC, GFR, ANEU #### [address] [address] Monocytes/100 WBC (Bld) 11.4 % Normal 2.0-13.0 [facility] Comment on above: Performed By: #### B MP, ADIFF, CBC, GFR, ANEU #### [address] [address] Neutrophils/100 WBC (Bld) 63.1 % Normal 50.0-75.0 [facility] Comment on above: Performed By: #### B MP, ADIFF, CBC, GFR, ANEU #### [address] [address] .GFRon 08-20-2024 Estimated Glomerular Filtration Rate 55 ml/min/1.73sqm Normal [facility] Comment on above: Result [...] DIFF, CBC, ANEU, GFR, BMP #### [address] [address] .NEUABSon 08-20-2024 Neutrophil, Absolute 5.1 10 3/mcL Normal 2.3-8.1 [facility] Comment on above: Performed By: #### B MP, ADIFF, CBC, GFR, ANEU #### [address] [address] BMPon 08-20-2024 BUN/Creatinine Ratio 29.8 ratio High 10.0-22.0 [facility] Comment on above: Performed By: #### B MP, ADIFF, CBC, GFR, ANEU #### [address] [address] Calcium [Mass/Vol] 9.8 mg/dL Normal 8.7-10.[address] [facility] MAIN Comment on above: Performed By: #### B MP, ADIFF, CBC, GFR, ANEU #### [address] [address] Chloride [Moles/Vol] 95 mmol/L Low 98-110 [facility] MA[facility] Comment on above: Performed By: #### B MP, ADIFF, CBC, GFR, ANEU #### [address] [address] CO2 [Moles/Vol] 34 mmol/L High 22-32 [facility] Comment on above: Performed By: #### B MP, ADIFF, CBC, GFR, ANEU #### [address] [address] Creatinine [Mass/Vol] 1.04 mg/dL Normal 0.50-1.20 [facility] MAIN Comment on above: Result Comment: Test ing performed on Mesuro analyzer using enzymatic creatinine methodology. Performed By: #### B MP, ADIFF, CBC, GFR, ANEU #### [place] [id number] Electrolyte Balance 5.0 mEq/L Normal 4.0-15.0 [facility] MAIN Comment on above: Performed By: #### B MP, ADIFF, CBC, GFR, ANEU #### [address] [address] Glucose [Mass/Vol] 244 mg/dL High 82-[address] [facility] MAIN Comment on above: Performed By: #### B MP, ADIFF, CBC, GFR, ANEU #### [place] [id number] Potassium [Moles/Vol] 4.8 mmol/L Normal 3.5-5.0 [facility] MAIN Comment on above: Result Comment: Spec imen slightly hemolyzed. Performed By: #### B MP, ADIFF, CBC, GFR, ANEU #### [place] [id number] Sodium [Moles/Vol] 134 mmol/L Low 136-[address] [facility] MAIN Comment on above: Performed By: #### B MP, ADIFF, CBC, GFR, ANEU #### [place] [id number] Urea nitrogen [Mass/Vol] 31.0 mg/dL High 8.0-22.0 [facility] Comment on above: Performed By: #### B MP, ADIFF, CBC, GFR, ANEU #### [address] [address] CBCon 08-20-2024 Erythrocyte distribution width (RBC) [Ratio] 14.0 % Normal 11.5-15.5 [facility] Comment on above: Performed By: #### B MP, ADIFF, CBC, GFR, ANEU #### [place] [phone] Hematocrit (Bld) [Volume fraction] 41.9 % Normal 34.0-46.0 [facility] Comment on above: Performed By: #### B MP, ADIFF, CBC, GFR, ANEU #### [place] [address] Hgb 13.6 G/dL Normal 12.0-16.0 [facility] Comment on above: Performed By: #### B MP, ADIFF, CBC, GFR, ANEU #### [place] [address] MCH (RBC) [Entitic mass] 29.7 pg Normal 27.0-33.0 [facility] Comment on above: Performed By: #### B MP, ADIFF, CBC, GFR, ANEU #### [place] [address] MCHC 32.4 G/dL Normal 32.0-36.0 [facility] Comment on above: Performed By: #### B MP, ADIFF, CBC, GFR, ANEU #### [place] [address] MCV (RBC) [Entitic vol] 91.5 fL Normal 80.0-99.0 [facility] Comment on above: Performed By: #### B MP, ADIFF, CBC, GFR, ANEU #### [place] [address] Platelet 301 10 3/mcL Normal 150-450 [facility] Comment on above: Performed By: #### B MP, ADIFF, CBC, GFR, ANEU #### [place] [address] Platelet mean volume (Bld) [Entitic vol] 11.0 fL High 6.6-10.5 [facility] Comment on above: Performed By: #### B MP, ADIFF, CBC, GFR, ANEU #### [place] [address] RBC 4.58 10 6/mcL Normal 4.10-5.30 [facility] Comment on above: Performed By: #### B MP, ADIFF, CBC, GFR, ANEU #### [place] [address] WBC 8.1 10 3/mcL Normal 4.5-10.8 [facility] Comment on above: Performed By: #### B MP, ADIFF, CBC, GFR, ANEU #### [place] [id number] [place] [address] LABORATORYOrdered By: SYSTEM SYSTEM on 08-20-2024 Basophils [...] above: Interpretive Data: T esting performed on Mesuro analyzer using enzymatic creatinine methodology. Electrolyte Balance [...] PM Ordering Provider: NANDO Anderson [facility] .Auto Diffon 08-16-2024 Basophil, Absolute 0.1 10 3/mcL Normal 0.0-0.3 [facility] Comment on above: Performed By: #### A DIFF, CBC, ANEU, GFR, BMP #### [address] [address] Basophils/100 WBC (Bld) 0.7 % Normal 0.0-2.5 [facility] Comment on above: Performed By: #### A DIFF, CBC, ANEU, GFR, BMP #### [address] [address] Eosinophil, Absolute 0.3 10 3/mcL Normal 0.0-0.7 [facility] MAIN Comment on above: Performed By: #### A DIFF, CBC, ANEU, GFR, BMP #### [address] [address] Eosinophils/100 WBC (Bld) 2.1 % Normal 0.0-6.0 [facility] Comment on above: Performed By: #### A DIFF, CBC, ANEU, GFR, BMP #### [address] [address] Lymphocyte, Absolute 1.9 10 3/mcL Normal 0.9-4.3 [facility] MAIN Comment on above: Performed By: #### A DIFF, CBC, ANEU, GFR, BMP #### [address] [address] Lymphocytes/100 WBC (Bld) 14.8 % Low 20.0-40.0 [facility] Comment on above: Performed By: #### A DIFF, CBC, ANEU, GFR, BMP #### [address] [address] Monocyte, Absolute 1.2 10 3/mcL Normal 0.1-1.4 [facility] MAIN Comment on above: Performed By: #### A DIFF, CBC, ANEU, GFR, BMP #### [address] [address] Monocytes/100 WBC (Bld) 9.8 % Normal 2.0-13.0 [facility] Comment on above: Performed By: #### A DIFF, CBC, ANEU, GFR, BMP #### [address] [address] Neutrophils/100 WBC (Bld) 72.6 % Normal 50.0-75.0 [facility] Comment on above: Performed By: #### A DIFF, CBC, ANEU, GFR, BMP #### [address] [address] .GFRon 08-16-2024 Estimated Glomerular Filtration Rate 58 ml/min/1.73sqm Normal [facility] MA[facility] Comment on above: Result [...] DIFF, CBC, ANEU, GFR, BMP #### [address] [address] .NEUABSon 08-16-2024 Neutrophil, Absolute 9.2 10 3/mcL High 2.3-8.1 [facility] Comment on above: Performed By: #### A DIFF, CBC, ANEU, GFR, BMP #### [place] [address] BMPon 08-16-2024 BUN/Creatinine Ratio 34.3 ratio High 10.0-22.0 [facility] MAIN Comment on above: Performed By: #### A DIFF, CBC, ANEU, GFR, BMP #### [place] [address] Calcium [Mass/Vol] 9.0 mg/dL Normal 8.7-10.[address] [facility] MAIN Comment on above: Performed By: #### A DIFF, CBC, ANEU, GFR, BMP #### [place] [address] Chloride [Moles/Vol] 100 mmol/L Normal 98-110 [facility] MAIN Comment on above: Performed By: #### A DIFF, CBC, ANEU, GFR, BMP #### [place] [address] CO2 [Moles/Vol] 30 mmol/L Normal 22-32 [facility] Comment on above: Performed By: #### A DIFF, CBC, ANEU, GFR, BMP #### [place] [address] Creatinine [Mass/Vol] 0.99 mg/dL Normal 0.50-1.20 [facility] MAIN Comment on above: Result Comment: Test ing performed on Mesuro analyzer using enzymatic creatinine methodology. Performed By: #### A DIFF, CBC, ANEU, GFR, BMP #### [place] [id number] Electrolyte Balance 5.0 mEq/L Normal 4.0-15.0 [facility] MA[facility] Comment on above: Performed By: #### A DIFF, CBC, ANEU, GFR, BMP #### [address] [address] Glucose [Mass/Vol] 259 mg/dL High 82-[address] [facility] MAIN Comment on above: Performed By: #### A DIFF, CBC, ANEU, GFR, BMP #### [address] [address] Potassium [Moles/Vol] 5.0 mmol/L Normal 3.5-5.0 [facility] MA[facility] Comment on above: Performed By: #### A DIFF, CBC, ANEU, GFR, BMP #### [address] [address] Sodium [Moles/Vol] 135 mmol/L Low 136-[address] [facility] MA[facility] Comment on above: Performed By: #### A DIFF, CBC, ANEU, GFR, BMP #### [place] [id number] Urea nitrogen [Mass/Vol] 34.0 mg/dL High 8.0-22.0 [facility] Comment on above: Performed By: #### A DIFF, CBC, ANEU, GFR, BMP #### [place] [id number] CBCon 08-16-2024 Erythrocyte distribution width (RBC) [Ratio] 13.7 % Normal 11.5-15.5 [facility] Comment on above: Performed By: #### A DIFF, CBC, ANEU, GFR, BMP #### [place] [id number] Hematocrit (Bld) [Volume fraction] 43.3 % Normal 34.0-46.0 [facility] Comment on above: Performed By: #### A DIFF, CBC, ANEU, GFR, BMP #### [place] [id number] Hgb 13.9 G/dL Normal 12.0-16.0 [facility] Comment on above: Performed By: #### A DIFF, CBC, ANEU, GFR, BMP #### [place] [phone] MCH (RBC) [Entitic mass] 30.0 pg Normal 27.0-33.0 [facility] Comment on above: Performed By: #### A DIFF, CBC, ANEU, GFR, BMP #### [place] [address] MCHC 32.1 G/dL Normal 32.0-36.0 [facility] Comment on above: Performed By: #### A DIFF, CBC, ANEU, GFR, BMP #### [place] [address] MCV (RBC) [Entitic vol] 93.6 fL Normal 80.0-99.0 [facility] MA[facility] Comment on above: Performed By: #### A DIFF, CBC, ANEU, GFR, BMP #### [place] [address] Platelet 230 10 3/mcL Normal 150-450 [facility] Comment on above: Performed By: #### A DIFF, CBC, ANEU, GFR, BMP #### [place] [address] Platelet mean volume (Bld) [Entitic vol] 10.7 fL High 6.6-10.5 [facility] Comment on above: Performed By: #### A DIFF, CBC, ANEU, GFR, BMP #### [place] [address] RBC 4.63 10 6/mcL Normal 4.10-5.30 [facility] Comment on above: Performed By: #### A DIFF, CBC, ANEU, GFR, BMP #### [place] [address] WBC 12.7 10 3/mcL High 4.5-10.8 [facility] Comment on above: Performed By: #### A DIFF, CBC, ANEU, GFR, BMP #### [place] [address] LABORATORYOrdered By: Marily Panda on 08-16-2024 Blood Glucose Interventions Administered agent to decrease blood sugar (08/16/24 12:23 PM) [employer] Work Phone: Blood Glucose Interventions Retest (08/16/24 10:15 AM) [employer] Work Phone: Bacteria identified Cx Nom ( Bld)on 08-15-2024 Bacteria identified Cx Nom (Unsp spec) NO GROWTH DAY 5 OF 5 [facility] CARDIAC RHYTHMon 08-15-2024 [facility] [place] RBC (Bld) [#/Vol] 4.67 10*6/uL [facility] WBC (Bld) [#/Vol] 11.94 10*3/uL High 3.99 - 11.19 K/uL [facility] Hematocrit (Bld) [Volume fraction] 43.8 % Normal 34.9-44.3 [facility] Comment on above: Performed By: #### X M #### [facility] (DEFAULT) [address] [address] Hemoglobin (Bld) [Mass/Vol] 13.5 g/dL Normal 11.4-15.2 [facility] Comment on above: Performed By: #### X M #### [facility] (DEFAULT) [address] [place] [address] MCV (RBC) [Entitic vol] 93.8 fL Normal 79.6-97.7 [facility] Comment on above: Performed By: #### X M #### [facility] (DEFAULT) [address] [address] Mean Cell Hgb 28.9 pg Normal 25.9-33.9 [facility] Comment on above: Performed By: #### X M #### [facility] (DEFAULT) [address] [address] Mean Cell Hgb Conc 30.8 g/dL Low 31.4-35.9 [facility] Comment on above: Performed By: #### X M #### [facility] (DEFAULT) [address] [address] Platelet mean volume (Bld) [Entitic vol] 12.0 fL Normal 8.5-12.2 [facility] Comment on above: Performed By: #### X M #### [facility] (DEFAULT) [address] [address] Platelets (Bld) [#/Vol] 252 10*3/uL Normal 150-393 [facility] Comment on above: Performed By: #### X M #### [facility] (DEFAULT) [address] [place] [address] RBC (Bld) [#/Vol] 4.67 10*6/uL Normal 3.91-5.04 [facility] Comment on above: Performed By: #### X M #### [facility] (DEFAULT) [address] [address] RBC Distribution 13.4 % Normal 10.8-14.9 [facility] Comment on above: Performed By: #### X M #### [facility] (DEFAULT) [address] [place] [address] WBC (Bld) [#/Vol] 11.94 10*3/uL High 3.99-11.19 [facility] Comment on above: Performed By: #### X M #### [facility] (DEFAULT) [address] [place] [address] CHEM 7 (LYTES,BUN,CREA,GLUC) on 08-15-2024 Anion gap [...] [Moles/Vol] 16 mmol/L Normal 7-17 [facility] Comment on above: Performed By: #### [facility] #### [facility] (DEFAULT) [address] [place] [address] Chloride [Moles/Vol] 99 mmol/L Normal 98-108 [facility] Comment on above: Performed By: #### H EMOGC #### [facility] (DEFAULT) [address] [place] [address] CO2 [Moles/Vol] 25 mmol/L Normal 21-31 [facility] Comment on above: Performed By: #### H EMOGC #### [facility] (DEFAULT) [address] [place] [address] Creatinine [Mass/Vol] 1.27 mg/dL High 0.50-1.20 [facility] Comment on above: Performed By: #### H EMOGC #### [facility] (DEFAULT) [address] [place] [address] GFR/1.73 sq M.predicted among non-blacks MDRD (S/P/Bld) [Vol rate/Area] 43 mL/min/{1.73_m2} Low >=60 [facility] Comment on above: Result Comment: Repo rted eGFR is based on the CKD-EPI 2020 equation using creatinine, age, and sex. Performed By: #### H EMO #### [facility] (DEFAULT) [address] [place] [address] Glucose [Mass/Vol] 214 mg/dL High Nonfastin -179 mg/dL; Fastin-99 [facility] Comment on above: Performed By: #### H EMO #### [facility] (DEFAULT) [address] [place] [address] Osmolality [Osmolality] 306 mosm/kg High 278-305 [facility] Comment on above: Performed By: #### H EMOGC #### [facility] (DEFAULT) [address] [place] [address] Potassium [Moles/Vol] 4.8 mmol/L Normal 3.5-5.0 [facility] Comment on above: Performed By: #### H EMOGC #### [facility] (DEFAULT) [address] [place] [address] Sodium [Moles/Vol] 135 mmol/L Normal 135-145 [facility] Comment on above: Performed By: #### H EMOGC #### [facility] (DEFAULT) [address] [place] [address] Urea nitrogen [Mass/Vol] 51 mg/dL High 7-25 [facility] Comment on above: Performed By: #### [facility] #### [facility] (DEFAULT) [address] [place] [address] Urea nitrogen/Creatinine [Mass ratio] 40 mg/mg Normal [facility] Comment on above: Performed By: #### H [facility] #### [facility] (DEFAULT) [address] [place] [address] GLUCOSE POCon 08-15-2024 Glucose [Mass/Vol] 190 mg/dL High 70 - 179 mg/dL [facility] Interpretation and review of laboratory results Abnormal [facility] POC Sample Type CAPBL [facility] Glucose [Mass/Vol] 146 mg/dL 70 - 179 mg/dL [facility] POC Sample Type CAPBL [facility] Glucose [Mass/Vol] 215 mg/dL High 70 - 179 mg/dL [facility] Interpretation and review of laboratory results Abnormal [facility] POC Sample Type CAPBL [facility] MAGNESIUMon 08-15-2024 Interpretation and review of laboratory results Normal [facility] Magnesium [Mass/Vol] 1.6 mg/dL 1.6 - 2 .6 mg/dL [facility] Magnesium [Mass/Vol] 1.6 mg/dL Normal 1.6-2.6 [facility] Comment on above: Performed By: #### [facility] #### [facility] (DEFAULT) [address] [place] [address] No Panel Informationon 08-15 [facility] [place] RBC (Bld) [#/Vol] 4.88 10*6/uL [facility] WBC (Bld) [#/Vol] 12.14 10*3/uL High 3.99 - 11.19 K/uL [facility] Hematocrit (Bld) [Volume fraction] 47.9 % High 34.9-44.3 [facility] Comment on above: Performed By: #### X M #### [facility] (DEFAULT) [address] [address] Hemoglobin (Bld) [Mass/Vol] 14.3 g/dL Normal 11.4-15.2 [facility] Comment on above: Performed By: #### X M #### [facility] (DEFAULT) [address] [address] MCV (RBC) [Entitic vol] 98.2 fL High 79.6-97.7 [facility] Comment on above: Performed By: #### X M #### [facility] (DEFAULT) [address] [place] [address] Mean Cell Hgb 29.3 pg Normal 25.9-33.9 [facility] Comment on above: Performed By: #### X M #### [facility] (DEFAULT) [address] [place] [address] Mean Cell Hgb Conc 29.9 g/dL Low 31.4-35.9 [facility] Comment on above: Performed By: #### X M #### [facility] (DEFAULT) [address] [place] [address] Platelet mean volume (Bld) [Entitic vol] 11.3 fL Normal 8.5-12.2 [facility] Comment on above: Performed By: #### X M #### [facility] (DEFAULT) [address] [place] [address] Platelets (Bld) [#/Vol] 229 10*3/uL Normal 150-393 [facility] Comment on above: Performed By: #### X M #### [facility] (DEFAULT) [address] [place] [address] RBC (Bld) [#/Vol] 4.88 10*6/uL Normal 3.91-5.04 [facility] Comment on above: Performed By: #### X M #### [facility] (DEFAULT) [address] [place] [address] RBC Distribution 13.4 % Normal 10.8-14.9 [facility] Comment on above: Performed By: #### X M #### [facility] (DEFAULT) [address] [place] [address] WBC (Bld) [#/Vol] 12.14 10*3/uL High 3.99-11.19 [facility] Comment on above: Performed By: #### X M #### [facility] (DEFAULT) [address] [place] [address] CHEM 7 (LYTES,BUN,CREA,GLUC) on 08-14-2024 Anion gap [...] Anion gap [Moles/Vol] 16 mmol/L Normal 7-17 [facility] Comment on above: Performed By: #### B LDCULT #### [facility] (DEFAULT) [address] [place] [address] Chloride [Moles/Vol] 101 mmol/L Normal 98-108 [facility] Comment on above: Performed By: #### B LDCULT #### [facility] (DEFAULT) [address] [place] [address] CO2 [Moles/Vol] 23 mmol/L Normal 21-31 [facility] Comment on above: Performed By: #### B LDCULT #### [facility] (DEFAULT) [address] [place] [address] Creatinine [Mass/Vol] 1.15 mg/dL Normal 0.50-1.20 [facility] Comment on above: Performed By: #### B LDCULT #### [facility] (DEFAULT) [address] [place] [address] GFR/1.73 sq M.predicted among non-blacks MDRD (S/P/Bld) [Vol rate/Area] 48 mL/min/{1.73_m2} Low >=60 [facility] Comment on above: Result Comment: Repo rted eGFR is based on the CKD-EPI 2020 equation using creatinine, age, and sex. Performed By: #### B LDCULT #### [facility] (DEFAULT) [address] [place] [address] Glucose [Mass/Vol] 208 mg/dL High Nonfastin -179 mg/dL; Fastin-99 [facility] Comment on above: Performed By: #### B LDCULT #### [facility] (DEFAULT) [address] [place] [address] Osmolality [Osmolality] 304 mosm/kg Normal 278-305 [facility] Comment on above: Performed By: #### B LDCULT #### [facility] (DEFAULT) [address] [place] [address] Potassium [Moles/Vol] 4.7 mmol/L Normal 3.5-5.0 [facility] Comment on above: Performed By: #### B LDCULT #### [facility] (DEFAULT) [address] [place] [address] Sodium [Moles/Vol] 135 mmol/L Normal 135-145 [facility] Comment on above: Performed By: #### B LDCULT #### [facility] (DEFAULT) [address] [place] [address] Urea nitrogen [Mass/Vol] 47 mg/dL High 7-25 [facility] Comment on above: Performed By: #### B LDCULT #### [facility] (DEFAULT) [address] [place] [address] Urea nitrogen/Creatinine [Mass ratio] 41 mg/mg Normal [facility] Comment on above: Performed By: #### B LDCULT #### [facility] (DEFAULT) [address] [place] [address] GLUCOSE POCon 08-14-2024 Glucose [Mass/Vol] 204 mg/dL High 70 - 179 mg/dL [facility] Interpretation and review of laboratory results Abnormal [facility] POC Sample Type CAPBL [facility] Glucose [Mass/Vol] 264 mg/dL High 70 - 179 mg/dL [facility] Interpretation and review of laboratory results Abnormal [facility] POC Sample Type CAPBL [facility] Glucose [Mass/Vol] 189 mg/dL High 70 - 179 mg/dL [facility] Interpretation and review of laboratory results Abnormal [facility] POC Sample Type CAPBL [facility] MAGNESIUMon 08-14-2024 Interpretation and review of laboratory results Normal [facility] Magnesium [Mass/Vol] 1.6 mg/dL 1.6 - 2 .6 mg/dL [facility] Magnesium [Mass/Vol] 1.6 mg/dL Normal 1.6-2.6 [facility] Comment on above: Performed By: #### B LDCULT #### [facility] (DEFAULT) [address] [id number] No Panel Informationon 08-14 [facility] [place] RBC (Bld) [#/Vol] 4.85 10*6/uL [facility] WBC (Bld) [#/Vol] 12.02 10*3/uL High 3.99 - 11.19 K/uL [facility] Hematocrit (Bld) [Volume fraction] 45.7 % High 34.9-44.3 [facility] Comment on above: Performed By: #### [facility] #### [facility] (DEFAULT) [address] [address] Hemoglobin (Bld) [Mass/Vol] 14.3 g/dL Normal 11.4-15.2 [facility] Comment on above: Performed By: #### H EMOGC #### [facility] (DEFAULT) [address] [place] [address] MCV (RBC) [Entitic vol] 94.2 fL Normal 79.6-97.7 [facility] Comment on above: Performed By: #### H EMOGC #### [facility] (DEFAULT) [address] [place] [address] Mean Cell Hgb 29.5 pg Normal 25.9-33.9 [facility] Comment on above: Performed By: #### H EMOGC #### [facility] (DEFAULT) [address] [place] [address] 96737 Mean Cell Hgb Conc 31.3 g/dL Low 31.4-35.9 [facility] Comment on above: Performed By: #### H EMO #### [facility] (DEFAULT) [address] [place] [address]65 Platelet mean volume (Bld) [Entitic vol] 11.7 fL Normal 8.5-12.2 [facility] Comment on above: Performed By: #### H EMO #### [facility] (DEFAULT) [address] [place] [address]91 Platelets (Bld) [#/Vol] 245 10*3/uL Normal 150-393 [facility] Comment on above: Performed By: #### H EMO #### [facility] (DEFAULT) [address] [place] [address]471 RBC (Bld) [#/Vol] 4.85 10*6/uL Normal 3.91-5.04 [facility] Comment on above: Performed By: #### H EMO #### [facility] (DEFAULT) [address] [place] [address] 15878 RBC Distribution 13.4 % Normal 10.8-14.9 [facility] Comment on above: Performed By: #### H EMO #### [facility] (DEFAULT) [address] [place] [address] WBC (Bld) [#/Vol] 12.02 10*3/uL High 3.99-11.19 [facility] Comment on above: Performed By: #### H EMO #### [facility] (DEFAULT) [address] [place] [address] CHEM 7 (LYTES,BUN,CREA,GLUC) on 08-13-2024 Anion gap [...] Anion gap [Moles/Vol] 15 mmol/L Normal 7-17 [facility] Comment on above: Performed By: #### [facility] #### [facility] (DEFAULT) [address] [address] Chloride [Moles/Vol] 104 mmol/L Normal 98-108 [facility] Comment on above: Performed By: #### [facility] #### [facility] (DEFAULT) [address] [address] CO2 [Moles/Vol] 23 mmol/L Normal 21-31 [facility] Comment on above: Performed By: #### [facility] #### [facility] (DEFAULT) [address] [address] Creatinine [Mass/Vol] 1.18 mg/dL Normal 0.50-1.20 [facility] Comment on above: Performed By: #### H [facility] #### [facility] (DEFAULT) [address] [address] GFR/1.73 sq M.predicted among non-blacks MDRD (S/P/Bld) [Vol rate/Area] 47 mL/min/{1.73_m2} Low >=60 [facility] Comment on above: Result Comment: Repo rted eGFR is based on the CKD-EPI 2020 equation using creatinine, age, and sex. Performed By: #### H EMO #### [facility] (DEFAULT) [address] [place] [address] Glucose [Mass/Vol] 225 mg/dL High Nonfastin -179 mg/dL; Fastin-99 [facility] Comment on above: Performed By: #### H EMOGC #### [facility] (DEFAULT) [address] [place] [address] Osmolality [Osmolality] 311 mosm/kg High 278-305 [facility] Comment on above: Performed By: #### H EMO #### [facility] (DEFAULT) [address] [place] [address] Potassium [Moles/Vol] 4.6 mmol/L Normal 3.5-5.0 [facility] Comment on above: Performed By: #### H EMO #### [facility] (DEFAULT) [address] [place] [address] Sodium [Moles/Vol] 137 mmol/L Normal 135-145 [facility] Comment on above: Performed By: #### H EMO #### [facility] (DEFAULT) [address] [place] [address] Urea nitrogen [Mass/Vol] 55 mg/dL High 7-25 [facility] Comment on above: Performed By: #### H EMO #### [facility] (DEFAULT) [address] [place] [address] Urea nitrogen/Creatinine [Mass ratio] 47 mg/mg Normal [facility] Comment on above: Performed By: #### H EMOGC #### [facility] (DEFAULT) [address] [place] [address] GLUCOSE POCon 08-13-2024 Glucose [Mass/Vol] 195 mg/dL High 70 - 179 mg/dL [facility] Interpretation and review of laboratory results Abnormal [facility] POC Sample Type [facility] Glucose [Mass/Vol] 198 mg/dL High 70 - 179 mg/dL [facility] Interpretation and review of laboratory results Abnormal [facility] POC Sample Type [facility] Glucose [Mass/Vol] 158 mg/dL 70 - 179 mg/dL [facility] POC Sample Type [facility] Glucose [Mass/Vol] 211 mg/dL High 70 - 179 mg/dL [facility] Interpretation and review of laboratory results Abnormal [facility] POC Sample Type [facility] Glucose [Mass/Vol] 240 mg/dL High 70 - 179 mg/dL [facility] Interpretation and review of laboratory results Abnormal [facility] POC Sample Type CAPBL [facility] MAGNESIUMon 08-13-2024 Interpretation and review of laboratory results Normal [facility] Magnesium [Mass/Vol] 1.8 mg/dL 1.6 - 2 .6 mg/dL [facility] Magnesium [Mass/Vol] 1.8 mg/dL Normal 1.6-2.6 [facility] Comment on above: Performed By: #### [facility] #### [facility] (DEFAULT) [address] [place] [address] No Panel Informationon 08-13 [facility] [place] RBC (Bld) [#/Vol] 4.82 10*6/uL [facility] WBC (Bld) [#/Vol] 14.32 10*3/uL High 3.99 - 11.19 K/uL [facility] Hematocrit (Bld) [Volume fraction] 45.1 % High 34.9-44.3 [facility] Comment on above: Performed By: #### [facility] #### [facility] (DEFAULT) [address] [address] Hemoglobin (Bld) [Mass/Vol] 14.3 g/dL Normal 11.4-15.2 [facility] Comment on above: Performed By: #### [facility] #### [facility] (DEFAULT) [address] [address] MCV (RBC) [Entitic vol] 93.6 fL Normal 79.6-97.7 [facility] Comment on above: Performed By: #### [facility] #### [facility] (DEFAULT) [address] [address] Mean Cell Hgb 29.7 pg Normal 25.9-33.9 [facility] Comment on above: Performed By: #### [facility] #### [facility] (DEFAULT) [address] [place] [address] Mean Cell Hgb Conc 31.7 g/dL Normal 31.4-35.9 [facility] Comment on above: Performed By: #### H EMOGC #### [facility] (DEFAULT) [address] [place] [address] Platelet mean volume (Bld) [Entitic vol] 11.4 fL Normal 8.5-12.2 [facility] Comment on above: Performed By: #### H EMOGC #### [facility] (DEFAULT) [address] [place] [address] Platelets (Bld) [#/Vol] 241 10*3/uL Normal 150-393 [facility] Comment on above: Performed By: #### H EMOGC #### [facility] (DEFAULT) [address] [place] [address] RBC (Bld) [#/Vol] 4.82 10*6/uL Normal 3.91-5.04 [facility] Comment on above: Performed By: #### H EMOGC #### [facility] (DEFAULT) [address] [place] [address] RBC Distribution 13.6 % Normal 10.8-14.9 [facility] Comment on above: Performed By: #### H EMOGC #### [facility] (DEFAULT) [address] [place] [address] WBC (Bld) [#/Vol] 14.32 10*3/uL High 3.99-11.19 [facility] Comment on above: Performed By: #### H EMOGC #### [facility] (DEFAULT) [address] [address] CHEM 7 (LYTES,BUN,CREA,GLUC) on 08-12-2024 Anion gap [...] Anion gap [Moles/Vol] 15 mmol/L Normal 7-17 [facility] Comment on above: Performed By: #### T YPEC #### [facility] (DEFAULT) [address] [place] [address] Chloride [Moles/Vol] 104 mmol/L Normal 98-108 [facility] Comment on above: Performed By: #### T YPEC #### [facility] (DEFAULT) [address] [place] [address] CO2 [Moles/Vol] 27 mmol/L Normal 21-31 [facility] Comment on above: Performed By: #### T YPEC #### [facility] (DEFAULT) [address] [place] [address] Creatinine [Mass/Vol] 1.36 mg/dL High 0.50-1.20 [facility] Comment on above: Performed By: #### T YPEC #### [facility] (DEFAULT) [address] [place] [address] GFR/1.73 sq M.predicted among non-blacks MDRD (S/P/Bld) [Vol rate/Area] 40 mL/min/{1.73_m2} Low >=60 [facility] Comment on above: Result Comment: Repo rted eGFR is based on the CKD-EPI 2020 equation using creatinine, age, and sex. Performed By: #### T YPEC #### [facility] (DEFAULT) [address] [place] [address] Glucose [Mass/Vol] 126 mg/dL Normal Nonfastin -179 mg/dL; Fastin-99 [facility] Comment on above: Performed By: #### T YPEC #### [facility] (DEFAULT) [address] [place] [address] Osmolality [Osmolality] 313 mosm/kg High 278-305 [facility] Comment on above: Performed By: #### T YPEC #### [facility] (DEFAULT) [address] [place] [address] Potassium [Moles/Vol] 4.5 mmol/L Normal 3.5-5.0 [facility] Comment on above: Performed By: #### T YPEC #### [facility] (DEFAULT) [address] [place] [address] Sodium [Moles/Vol] 141 mmol/L Normal 135-145 [facility] Comment on above: Performed By: #### T YPEC #### [facility] (DEFAULT) [address] [place] [address] Urea nitrogen [Mass/Vol] 56 mg/dL High 7-25 [facility] Comment on above: Performed By: #### T YPEC #### [facility] (DEFAULT) [address] [place] [address] Urea nitrogen/Creatinine [Mass ratio] 41 mg/mg Normal [facility] Comment on above: Performed By: #### T YPEC #### [facility] (DEFAULT) [address] [place] [address] GLUCOSE POCon 08-12-2024 Glucose [Mass/Vol] 231 mg/dL High 70 - 179 mg/dL [facility] Interpretation and review of laboratory results Abnormal [facility] POC Sample Type CAPBL [facility] Glucose [Mass/Vol] 208 mg/dL High 70 - 179 mg/dL [facility] Interpretation and review of laboratory results Abnormal [facility] POC Sample Type CAPBL [facility] Glucose [Mass/Vol] 160 mg/dL 70 - 179 mg/dL [facility] POC Sample Type CAPBL [facility] Glucose [Mass/Vol] 107 mg/dL 70 - 179 mg/dL [facility] POC Sample Type CAPBL [facility] MAGNESIUMon 08-12-2024 Interpretation and review of laboratory results Normal [facility] Magnesium [Mass/Vol] 2.2 mg/dL 1.6 - 2 .6 mg/dL [facility] Magnesium [Mass/Vol] 2.2 mg/dL Normal 1.6-2.6 [facility] Comment on above: Performed By: #### T YPEC #### [facility] (DEFAULT) [address] [place] [address] No Panel Informationon 08-12 [facility] SURG PATH REQUESTOrdered By: Renae Glez on 08-12-2024 Case Report [facility] Clinical History [id number] NVx xlrFjNLAwwOJfG3RtflxzEM fzSO2tKI9fhRgipXAkxJKbX UTkEjWun2hvh715rPWkz9pc QYEBdqyizSs5tFrkM45yq0H 9TkvpY5eqHKYyJZipRYWwUM hcnFDmCTh1ITBmjCZfpvHxF pSqJZXowWPdfQM4JCXdLA5g sastGQhsIUaqAPHcduV6ARP njOHtR7AdXBKfXZ4jpcrnSU G2SGlmEFGnBSK5BdCcZWZke 8Txkrq1JaDugGm8u8msUHBf RNYwoEmtm4kvEZD9RDGojHG fC3whyT3sAYQvCA3nivtep2 beQZdtNOofDQEvsON2zdT4C OTfvMRqM9GthN9rUXNyQKOi sgCpaDysgP3xWfLqABarDxL sIc4SOWoVZtOtGIRyw6YxUR DtCALTcMJull7yqZY0FOHPo 88uSrOjECSqkRDasJZAmQA6 v5K5FqHqFo3stWYfyQVriIP qcJH8y5B0JNUmk5YqVAFzZa xwYXJ9 [facility] For Immediate Release to Patient's MyChart? Yes Yes [facility] Gross Description q4ufsLNkTQCrd8jyFLKw bGF uZzEwMzNcZnRuYmpcdWMxIH tccnRmMVxlcGljMTExMDVcY O8ngKcouNi4mZwxTWLnoaX4 dKOdABfyk0gvEGK1d9tbjvt uLABiTNuaXq9qvCBtgQegBb PeKJSmJYl2kK95CXVpuB1cp THuKTsuygFtTRIjX5HtKT9u SArttMYwGMD6uBrmJWBgjkx oXaW3WJbuUNUmvtjfZMl6KD scCOZkhER5JRSdzUEkE5AcO FEzKB7rnpn5CBG1OGgzENQs NbX9LSSguSObQIEtzMnyRDj xb326ZAM0YuLcLPMuekSmaN nrvU9xZxMeMHDVsGVwq3ZgD 2cyGU4yyEXyfgPdSGe9TZAe aV0oa62dLRNpn6Ulkws8RHn sYtVxGPJwM61paOAnwpOoKZ dpdGggdGhlIHBhdGllbnQnc wVfWR3oDHPfSOSmU2Luf2Jp d04vcpHjQtAuArCkzMZxBGR wpgslUmXhIKtnOrFxMlb0WD IgVGhlIHNwZWNpbWVuIGlzI JXbs6fkfzL5HCJjVofmz8Ai oYDpIJJcgyCvtHPxHX0rZIS hekMqy1HiRZ0rUAYiyrYlHz DsB63trgNgFQ6oTGKxxa7zu M0qMUMzKzLupCgos3SbKADb pa0zDAJrMnG0zHP4evMnSdC dI42ypV4kY8ZfOORoj1ZhYE hjNV6wuG6uHfHjOQPcBRDwr GXzAQShamLZULMtFBMzXH8r ePr8AIazAssQNJeiHvKbPSA 6GGGeke71PVQ4JwWqx0D5EH UeFhDfCKAtHB9vvQjhZQKgT H3zMGMyX9wgvN9wxds0OcGl ZCZeVhH2OOMdzxD6Dvj0SWE kZYncd5vop4KkLSHyVXk9hB zeDtRiLNUma2hdqwEbJuNmZ CPnSGKbFPKthYBuP718l6cf n4wyacApzLU2JEHqBXI1ZCq dyaIklfE7HFygqUFrMyC9DQ yowpTlVOvdrdDgkmGfFzb3V VIfL575PRN3eRaxh9waLNS0 XERsNXZqLxHyAr5ewXFxT18 8XWKeTQRTNCSgjSx6HKPwuj GxqvNbwXBJs714P612y7qjY XMzrzMpvDcZeiqdr8idT473 XHBhcGVydzEyMjQwXHBhcGV lwBC4IPToNU4rbljgQTqjSP nlYSMfmbU5GPWrbTYwO6RdZ GCbEP7kshblSBP2PTbvCEBj BXM1VwJbXCOgq4Qusdp8RxG vok9izk08AID3b9GowKveCD L6VLN4GfIeHb8zjFHiVGMdJ Q1aWkSoqVCiKBUetq58dHve BBykqkUczZ6aSgWnIWRxfCU lLDDyTP7shSRwYJHjqK7ebo xjXHBnYnJkcmhlYWRccGdic kHcUy3feKibDQA8IEpsT6cb tU8nUeP8WCnjZ6msoI0mBJn 3OUsbbDE0URQrpY1gWK4mds fxu2xeAZtiQOlhNTPbweJ2l lB1JBQqvDVpI5CvdF5bKZGn RZ9klouaq3dvFBA6TXhfZSE hAMZ1RmVlZEMxh6Hsmrk5Dt Vzo5IdrBQyNQulE17kr592G FAwizLqG2nvgRZvqwzvyITb ylniYDisleB2GZYnASShTPe uXGYxXGZzMjJcbGFuZzEwMz NcaGljaFxmMVxkYmNoXGYxX IyuJ4fpCaEqOrUxApGCof1d i9CdONOsgzC3pLpyJPMxn7E ay6OiXbAFPFEqZ4JjSR2cmE FrHUYcfa26 [facility] Microscopic Description o6ksgXWvJQQrgYKh ZjIyMDA vFKUsl8coCGNvwGXoOzUkFr NcZnRuYmpcdWMxXGRlZmYwe 5auq389eLZcj0xzIVUtInA8 lMRcMYSsnBUaU005NFRrKLf az0uic4AyPTVhwPIma2V5GX MPuegbmNl9fXkxY83ec0Y1L iyaI3uiQSQeHUYbC5DhXH1g NQDuXqo0UCO6CGB2IZRvBAZ fJ5LdEX4vFRExaHJjPXt2u1 jmmLgoYYUdEEY7n2xeAQkgv qRuMU4uxx3xoUs1q5ndmrXh AKVxSYHjkQFHRGOnR3KboUt bEf3arVk8tMzjDxqsPHH4Ee c3IJ4scf02qto8zThjYIXfv qzzFyN7EFtoLNCcmuskNNd7 WFojSJKddTH8KMQebUQcP9Y uYBEoYA7hlfh1TDA3GNrjHJ BsNaN6VBTtpRRdEPTjpHweK Qksm071EZK9WgIlRC7kO7Kf b8R3vO9xtMNzOPGoxNCrMaD mDAGqwk3tbMGvPEsiu7MyGH S5tsA0qZJyhSIjYKCkCU04A yxqx0QjVwveGXS3JBEopkXc v8Mvi0urZdXmtbIwD2hnS6A yZHJoZWFkXHBnYnJkcmZvb3 Zsq3PfpLWomZl7l6zrAMWgI KRsmQdym2ebMWZ3VQJlH2B0 kDDcy5kjHIdlDGQwtQV7odE 1NROgcAVwR3VijU7tWANfVQ 4upvk6d6xnVUH1GXmfQQTkE aD0eoL9CIOqxGCcWMFryUrr ENieh932CLR3HaNuBMApn5N oL5AdaMhaJ02klQuhC29dTL BvpLqjlU6rrPfmnJ1oDxQlG nMyNFxxbFxwbGFpblxmMVxm uhYyFOjolobiRYAzOUcbH9l gRzJdCINesUfuSNnnp2DsUL NvGPTzXnHwIPPkzNLla6Zve 9VcPxRqoOKcpR5ldZjfioG3 EZPonKVsBf2cgJJtVcMetTV yfQ== [facility] Pathologic Diagnosis t8ayeGJhHBLznMIiOXB wNVx ccaPwYNRspXKsR5JdqxzlZA bqZS2zAT3xqEecxLCulEPhH GNlDsRxj5yob736mBNgt7wq SXXClhvhsQo9f6kyGTCFuX6 dv0c5iD77CICvvC6mwLBcMV icglDgBZjoiuOldhMiCfx9Q MW7wPibQywezCV5cBQfcHH9 BHsil3AscNxdmKscTUSjHJI sAAH5Y5micLL9lUGeuAzljI PaQT7nk6vqxRE4qsLlOCS0q HvzdJX9nQjlvdeav5xapSH4 wVY9KKkejRZ9RJchBdYhG4q gVFMolB6rK86qY1qxXWCzaT ejPXclTVJknQN7PFO4UNLdb 1xsZXZlbHRleHRcJzAxXCdi Jtc6z9byUGRbiZ26aQJldqV 7fVxmMVxmczIwXGxpMzYwXG ZpMTgwfXtcbGlzdGxldmVsX HpjdpUewuYfLmMymQN7ZYvo SnQnWlCjcTN3QWxeGhGnaSJ 4WQecfDKwyPH1GDgaxRP3SC p1IIi1SZalSOgaXjo2rAkcr DU8KFujxD3bSGVvG74kViGj NlJyGF07QXjqy8HzTSWarQf sATVseW7sAeGcBQnftsSlmf ZjbjIzXGxldmVsamMwXGxld gQzl2UhduPmlCR9EAcbodEn dYM7pGbuHJUjJ1A2D951HDa ourIygoGmOnOvujv0ZTQmPK NqIkL2i5idrUY5rBW8OYbxm EP3HBcsXfGsJ7ukDNGbeQ3z M21zT7qeSSPxrVgsWIegJSL geHF5WRZ1RAVze9bgSEZljL FcjBCzTrMkHYcmFjw2o2qpD JKmuX53nEZaydO2xNuwARgs czIwfXtcbGlzdGxldmVsXGx hcuDkdoTmDxMjdNT3MXlaFm VtAiVmlGR2EVyvQcAxgFH8H GuyeIRdkTV9CAcdyKU2SQi4 PSv4OFdgATpqBqf4rHziuOE 6CHelnI2dFEFjR37dOrYvVz EmGB41FYibj0ZxPGZefPlmK TXplH0gLmPbNZkeuuHpaqEm bjIzXGxldmVsamMwXGxldmV ye5HkjfKsqMK5ZGmydbWwlF L5fDptCWAcV1C2D965ONdhn hOhfvBjDrCehbs2NEZgKYSm PyL6h4pvbUE3aLT3XBnzmSA 3YMivQgHeB9tcLPKirF5mB7 8iV4tzIFImrVchVSrmKNTbl SX8JWZ6IJDsk9enLRBqcVMn zSObYgMaMEieVoq1k1nmPSN ohJ17eZBcisU7dKmqXQyayl IwfXtcbGlzdGxldmVsXGxld tJgytIdHtMnkHJ7XAuhCjXz EwGgmND7HAinVvDkcNJ9TZw haVIuxZR5EMdclZJ4UNi7NC f3DCrcPXosUex7rSfkdCJ5S MwfuM6gVVLjL05wHhMgEfPq NJ12GAcdl7ScIIRzvPisYLE bfY1lAtQvFOzcvjIndaZcgy IzXGxldmVsamMwXGxldmVsc 0JpleFnbFE4UNcyoqWanDJ8 lRbfBCGzF8V5L660UAedcnN hieHmQiMdasx0LQTuYYOmOk V4sU94EMupoUjngG23VZMpa RMsjSIqlML4NRfbzPujqX38 OZOruTSfQElpa6KqVTAfFzW 7BmHeTMHqjWlahN31BURoxU VyB064plUzMIrmRA20YHHru GVydzEyMjQwXHBhcGVyaDE1 KGSzCB3qduhmGOodMDieMRO xduW4PTZnrCXkD7DxWGIeNY 7dlhmtLOI4YTrqNZBtQHO6V bZgMITgq8Swupt4NfZrgYLm OMgpkYRxiympNRTqHqVqK9B xDWSxZZO8j47vN7egDDDjj6 BzeTpccGFyXGxpMzYwXGZpM JwgCRtzrdF8DSmaubCdsPb6 gMAuiJyvvQ5mPpumfiHeSUQ cFYHWa5RzlMDtef5fcP4pLK ZzspKMinARRUzcG23xFFQ2B SXcnLccz6KeHVreJK78fXBq ZWRccGFyfQ== [facility] Professional Interpretation Performed at: [id number] rAFRva1jmWCDtzIRgMaWaQe NcZnRuYmpcdWMxXGRlZmYwe 2whr883eODvy8odPJUpJgV4 kCOsWKIjsYFuU178VHFgXMm wh1oiw2WxZXNbdQXji4W3VG JPnuogvEq0mTjeA85ej2R9T ebdI8tbABIvANVcH8QgPF4e JPOrVld3WHI2GNT1QURbULQ hF2EnGN6fAXXmvFLgDDk4b0 tsbIlhIEJjDBK5l5bkCXwjm gNcUN2nuh1jqRa8u1bqfaSl ZSKkQZBvjOKQKUAjW3ZjtSe yJb5uyGs9lYfqWevgBSA0Sq t8JB5wfq80gah1hGjhTENab zctRdU8NHwsIYNzpzlsQTa4 JIceAHPatKX7WMInkFFoH5I xTQXqMJ3wvfj8YPF7IZpsHO XcDzD3EQIjxIHtHSNihTggS Rwvp327XGC9NoDrXI6nF9Hd w8V8zW3kdWOyYADpaYZxOlA iDQAulc6yiECmDBrwb1QsMS M7hjD7yDDdlBHzCGJrIP02H rqek0LhZjnsWXF2BSCamqBx r9Ykb5asDzFgboLfY0yrV6Z yZHJoZWFkXHBnYnJkcmZvb3 Fba4OzbKUnpLi3n0ylTKCcO FNzlHfnf2dzUEF2TSLhF7M5 lFGwx0isQAuqNSDkiKY4eaY 9DZOfbSJyE8RadB9kMDNvZU 1zwio3e6buWSE3NYbdACIfG kK5okV8GTGgyYZrEHZmtKgy RVvhx378WXX8OvDpEWIgt0U vH7PflPxpS69xlZygU25yTP KcjQxymQ2xgFejoV9mKeFpN nMyNFxwYXJkXHBsYWluXGYx XGZzMjJcbGFuZzEwMzNcaGl jaFxmMVxkYmNoXGYxXGxvY2 fpZkSbWbCiFzXHV3XuK4VII cUPQZ9KVXxBSFqnR8YSBJKV MWOIAB3RM2ZSEKcJNt0VFAK MWxdcxWXwBHEyHGZZYPN7CF MeyWsrZYItGGOxqcHHk9y2c OU9fmteN0lvvkU8YdJpYLhe YXJ9 [facility] CBC,PLATELETSon 08-11-2024 Erythrocyte distribution width [...] [facility] [place] RBC (Bld) [#/Vol] 4.69 10*6/uL [facility] WBC (Bld) [#/Vol] 11.76 10*3/uL High 3.99 - 11.19 K/uL [facility] Hematocrit (Bld) [Volume fraction] 43.2 % Normal 34.9-44.3 [facility] Comment on above: Performed By: #### T YPEC #### [facility] [place] (DEFAULT) [address] [address] Hemoglobin (Bld) [Mass/Vol] 14.0 g/dL Normal 11.4-15.2 [facility] Comment on above: Performed By: #### T YPEC #### [facility] [place] (DEFAULT) [address] [address] MCV (RBC) [Entitic vol] 92.1 fL Normal 79.6-97.7 [facility] Comment on above: Performed By: #### T YPEC #### [facility] (DEFAULT) [address] [address] Mean Cell Hgb 29.9 pg Normal 25.9-33.9 [facility] Comment on above: Performed By: #### T YPEC #### [facility] [place] (DEFAULT) [address] [address] Mean Cell Hgb Conc 32.4 g/dL Normal 31.4-35.9 [facility] Comment on above: Performed By: #### T YPEC #### [facility] (DEFAULT) [address] [address] Platelet mean volume (Bld) [Entitic vol] 11.5 fL Normal 8.5-12.2 [facility] Comment on above: Performed By: #### T YPEC #### [facility] [place] (DEFAULT) [address] [address] Platelets (Bld) [#/Vol] 240 10*3/uL Normal 150-393 [facility] Comment on above: Performed By: #### T YPEC #### [facility] [place] (DEFAULT) [address] [address] RBC (Bld) [#/Vol] 4.69 10*6/uL Normal 3.91-5.04 [facility] Comment on above: Performed By: #### T YPEC #### [facility] [place] (DEFAULT) [address] [address] RBC Distribution 13.7 % Normal 10.8-14.9 [facility] Comment on above: Performed By: #### T YPEC #### [facility] [place] (DEFAULT) [address] [address] WBC (Bld) [#/Vol] 11.76 10*3/uL High 3.99-11.19 [facility] Comment on above: Performed By: #### T YPEC #### [facility] [place] (DEFAULT) [address] [place] [address] CHEM 7 (LYTES,BUN,CREA,GLUC) on 08-11-2024 Anion gap [Moles/Vol] 14 mmol/L 7 - 17 mmol/L [facility] [facility] Chloride [Moles/Vol] 103 mmol/L 98 - 10 8 mmol/L [facility] CO2 [Moles/Vol] 26 mmol/L 21 [...] Anion gap [Moles/Vol] 14 mmol/L Normal 7-17 Coi [facility] Comment on above: Performed By: #### [facility] #### [facility] (DEFAULT) [address] [place] [address] Chloride [Moles/Vol] 103 mmol/L Normal 98-108 [facility] Comment on above: Performed By: #### [facility] #### [facility] (DEFAULT) [address] [place] [id number] CO2 [Moles/Vol] 26 mmol/L Normal 21-31 [facility] Comment on above: Performed By: #### [facility] #### [facility] (DEFAULT) [address] [place] [address] Creatinine [Mass/Vol] 1.32 mg/dL High 0.50-1.20 [facility] Comment on above: Performed By: #### [facility] #### [facility] (DEFAULT) [address] [address] GFR/1.73 sq M.predicted among non-blacks MDRD (S/P/Bld) [Vol rate/Area] 41 mL/min/{1.73_m2} Low >=60 [facility] Comment on above: Result Comment: Repo rted eGFR is based on the CKD-EPI 2020 equation using creatinine, age, and sex. Performed By: #### [facility] #### [facility] (DEFAULT) [address] [address] Glucose [Mass/Vol] 127 mg/dL Normal Nonfastin -179 mg/dL; Fastin-99 [facility] Comment on above: Performed By: #### H EMO #### [facility] (DEFAULT) [address] [address] Osmolality [Osmolality] 306 mosm/kg High 278-305 [facility] Comment on above: Performed By: #### H EMO #### [facility] [place] (DEFAULT) [address] [address] Potassium [Moles/Vol] 4.6 mmol/L Normal 3.5-5.0 [facility] Comment on above: Performed By: #### H EMO #### [facility] (DEFAULT) [address] [address] Sodium [Moles/Vol] 138 mmol/L Normal 135-145 [facility] Comment on above: Performed By: #### H EMOGC #### [facility] [place] (DEFAULT) [address] [address] Urea nitrogen [Mass/Vol] 53 mg/dL High 7-25 [facility] Comment on above: Performed By: #### H EMOGC #### [facility] (DEFAULT) [address] [place] [address] Urea nitrogen/Creatinine [Mass ratio] 40 mg/mg Normal [facility] Comment on above: Performed By: #### [facility] #### [facility] (DEFAULT) [address] [place] [address] GLUCOSE POCon 08-11-2024 Glucose [Mass/Vol] 213 mg/dL High 70 - 179 mg/dL [facility] Interpretation and review of laboratory results Abnormal [facility] POC Sample Type CAPBL [facility] Glucose [Mass/Vol] 255 mg/dL High 70 - 179 mg/dL [facility] Interpretation and review of laboratory results Abnormal [facility] POC Sample Type CAPBL [facility] Glucose [Mass/Vol] 190 mg/dL High 70 - 179 mg/dL [facility] Interpretation and review of laboratory results Abnormal [facility] POC Sample Type CAPBL [facility] Glucose [Mass/Vol] 205 mg/dL High 70 - 179 mg/dL [facility] Interpretation and review of laboratory results Abnormal [facility] POC Sample Type CAPBL [facility] MAGNESIUMon 08-11-2024 Interpretation and review of laboratory results Normal [facility] Magnesium [Mass/Vol] 1.9 mg/dL 1.6 - 2 .6 mg/dL [facility] Magnesium [Mass/Vol] 1.9 mg/dL Normal 1.6-2.6 [facility] Comment on above: Performed By: #### M [facility] #### [facility] (DEFAULT) [address] [place] [phone] No Panel Informationon 08-11 [facility] BLOOD CULTUREon 08-10-2024 Bacteria identified Cx Nom (Unsp spec) NO GROWTH DAY 5 OF 5 Normal [facility] Comment on above: Order Comment: [...] [facility] (DEFAULT) [address] [address] Bacteria identified Cx Nom (Unsp spec) NO GROWTH DAY 5 OF 5 Normal [facility] Comment on above: Order Comment: [...] [facility] (DEFAULT) [address] [address] CBC,PLATELETSon 08-10-2024 Erythrocyte distribution width (RBC) [Ratio] [...] [facility] [place] RBC (Bld) [#/Vol] 4.85 10*6/uL [facility] WBC (Bld) [#/Vol] 13.78 10*3/uL High 3.99 - 11.19 K/uL [facility] Hematocrit (Bld) [Volume fraction] 45.1 % High 34.9-44.3 [facility] Comment on above: Performed By: #### [facility] #### [facility] (DEFAULT) [address] [address] Hemoglobin (Bld) [Mass/Vol] 14.1 g/dL Normal 11.4-15.2 [facility] Comment on above: Performed By: #### H EMO #### [facility] (DEFAULT) [address] [address] MCV (RBC) [Entitic vol] 93.0 fL Normal 79.6-97.7 O [facility] Comment on above: Performed By: #### H EMO #### [facility] [place] (DEFAULT) [address] [address] Mean Cell Hgb 29.1 pg Normal 25.9-33.9 [facility] Comment on above: Performed By: #### H EMO #### [facility] [place] (DEFAULT) [address] [address] Mean Cell Hgb Conc 31.3 g/dL Low 31.4-35.9 [facility] Comment on above: Performed By: #### H EMOGC #### [facility] [place] (DEFAULT) [address] [address] Platelet mean volume (Bld) [Entitic vol] 11.4 fL Normal 8.5-12.2 [facility] Comment on above: Performed By: #### H EMOGC #### [facility] [place] (DEFAULT) [address] [place] [address] Platelets (Bld) [#/Vol] 216 10*3/uL Normal 150-393 [facility] Comment on above: Performed By: #### H EMOGC #### [facility] [place] (DEFAULT) [address] [place] [address] RBC (Bld) [#/Vol] 4.85 10*6/uL Normal 3.91-5.04 [facility] Comment on above: Performed By: #### H EMOGC #### [facility] [place] (DEFAULT) [address] [place] [address] RBC Distribution 13.3 % Normal 10.8-14.9 [facility] Comment on above: Performed By: #### H EMOGC #### [facility] [place] (DEFAULT) [address] [place] [address] WBC (Bld) [#/Vol] 13.78 10*3/uL High 3.99-11.19 [facility] Comment on above: Performed By: #### [facility] #### [facility] [place] (DEFAULT) [address] [place] [address] CHEM 7 (LYTES,BUN,CREA,GLUC) on 08-10-2024 Anion gap [...] Anion gap [Moles/Vol] 16 mmol/L Normal 7-17 [facility] Comment on above: Performed By: #### Jaiden NGUYEN CHM7 ####[facility] [place] (DEFAULT)[address] [place] [address] Chloride [Moles/Vol] 103 mmol/L Normal 98-108 [facility] Comment on above: Performed By: #### Jaiden NGUYEN CHM7 ####[facility] (DEFAULT)[address] [facility] [place] [address] CO2 [Moles/Vol] 24 mmol/L Normal 21-31 [facility] Comment on above: Performed By: #### Jaiden NGUYEN CHM7 ####[facility] [place] (DEFAULT)[address] [place] [address] Creatinine [Mass/Vol] 1.36 mg/dL High 0.50-1.20 [facility] Comment on above: Performed By: #### Jaiden NGUYEN CHM7 ####[facility] [place] (DEFAULT)[address] [place] [address] GFR/1.73 sq M.predicted among non-blacks MDRD (S/P/Bld) [Vol rate/Area] 40 mL/min/{1.73_m2} Low >=60 [facility] Comment on above: Result Comment: Repo rted eGFR is based on the CKD-EPI 2020 equation using creatinine, age, and sex. Performed By: #### Jaiden NGUYEN CHM7 ####[facility] [place] (DEFAULT)[address] [place] [address] Glucose [Mass/Vol] 186 mg/dL High Nonfastin -179 mg/dL; Fastin-99 [facility] Comment on above: Performed By: #### HEYDI PALACIOS7 ####[facility] (DEFAULT)[address] [place] [address] Osmolality [Osmolality] 308 mosm/kg High 278-305 [facility] Comment on above: Performed By: #### HEYDI PALACIOS7 ####[facility] (DEFAULT)[address] [facility] [place] [address] Potassium [Moles/Vol] 4.9 mmol/L Normal 3.5-5.0 [facility] Comment on above: Performed By: #### HEYDI PALACIOS7 ####[facility] (DEFAULT)[address] [place] [address] Sodium [Moles/Vol] 138 mmol/L Normal 135-145 [facility] Comment on above: Performed By: #### HEYDI PALACIOS7 ####[facility] [place] (DEFAULT)[address] [place] [address] Urea nitrogen [Mass/Vol] 47 mg/dL High 7-25 [facility] Comment on above: Performed By: #### Jaiden NGUYEN CHM7 ####[facility] [place] (DEFAULT)[address] [facility] [place] [address] Urea nitrogen/Creatinine [Mass ratio] 35 mg/mg Normal [facility] Comment on above: Performed By: #### Jaiden NGUYEN CHM7 ####[facility] (DEFAULT)[address] [facility] [place] [address] GLUCOSE POCon 08-10-2024 Glucose [Mass/Vol] 144 mg/dL 70 - 179 mg/dL [facility] POC Sample Type CAPBL [facility] Glucose [Mass/Vol] 177 mg/dL 70 - 179 mg/dL [facility] [place] POC Sample [facility] Glucose [Mass/Vol] 180 mg/dL High 70 - 179 mg/dL [facility] Interpretation and review of laboratory results Abnormal [facility] POC Sample [facility] Glucose [Mass/Vol] 193 mg/dL High 70 - 179 mg/dL [facility] [place] Interpretation and review of laboratory results Abnormal [facility] POC Sample Type [facility] Glucose [Mass/Vol] 200 mg/dL High 70 - 179 mg/dL [facility] [place] Interpretation and review of laboratory results Abnormal [facility] [place] POC Sample Type [facility] Glucose [Mass/Vol] 198 mg/dL High 70 - 179 mg/dL [facility] [place] Interpretation and review of laboratory results Abnormal [facility] [place] POC Sample Type [facility] MAGNESIUMon 08-10-2024 Interpretation and review of laboratory results Normal [facility] [place] Magnesium [Mass/Vol] 1.8 mg/dL 1.6 - 2 .6 mg/dL [facility] [place] Magnesium [Mass/Vol] 1.8 mg/dL Normal 1.6-2.6 [facility] Comment on above: Performed By: #### M , [facility] ####[facility] [place] (DEFAULT)[address] [place] [address] No Panel Informationon 08-10 [facility] URINE CULTUREOrdered By: Franklin Carcamo on 08-10-2024 Bacteria identified Cx Nom (Unsp spec) Growth [facility] [place] Bacteria identified Cx Nom (Unsp spec) KLEBSIELLA PNEUMONIAE Abnormal [facility] [place] Interpretation and review of laboratory results Abnormal [facility] CBC,PLATELETSon 08-09-2024 Erythrocyte distribution width [...] [facility] [place] RBC (Bld) [#/Vol] 4.79 10*6/uL [facility] WBC (Bld) [#/Vol] 12.37 10*3/uL High 3.99 - 11.19 K/uL [facility] Hematocrit (Bld) [Volume fraction] 44.4 % High 34.9-44.3 [facility] Comment on above: Performed By: #### [facility] #### [facility] [place] (DEFAULT) [address] [address] Hemoglobin (Bld) [Mass/Vol] 14.1 g/dL Normal 11.4-15.2 [facility] Comment on above: Performed By: #### [facility] #### [facility] [place] (DEFAULT) [address] [place] [address] MCV (RBC) [Entitic vol] 92.7 fL Normal 79.6-97.7 [facility] Comment on above: Performed By: #### H EMOGC #### [facility] (DEFAULT) [address] [address] Mean Cell Hgb 29.4 pg Normal 25.9-33.9 [facility] Comment on above: Performed By: #### H EMOGC #### [facility] (DEFAULT) [address] [address] Mean Cell Hgb Conc 31.8 g/dL Normal 31.4-35.9 [facility] Comment on above: Performed By: #### H EMOGC #### [facility] (DEFAULT) [address] [address] Platelet mean volume (Bld) [Entitic vol] 11.5 fL Normal 8.5-12.2 [facility] Comment on above: Performed By: #### H EMOGC #### [facility] [place] (DEFAULT) [address] [address] Platelets (Bld) [#/Vol] 226 10*3/uL Normal 150-393 [facility] Comment on above: Performed By: #### H EMOGC #### [facility] [place] (DEFAULT) [address] [address] RBC (Bld) [#/Vol] 4.79 10*6/uL Normal 3.91-5.04 [facility] Comment on above: Performed By: #### H EMOGC #### [facility] [place] (DEFAULT) [address] [address] RBC Distribution 13.5 % Normal 10.8-14.9 [facility] Comment on above: Performed By: #### H EMOGC #### [facility] (DEFAULT) [address] [address] WBC (Bld) [#/Vol] 12.37 10*3/uL High 3.99-11.19 [facility] Comment on above: Performed By: #### H EMOGC #### [facility] [place] (DEFAULT) [address] [place] [address] CHEM 7 (LYTES,BUN,CREA,GLUC) on 08-09-2024 Anion gap [Moles/Vol] 14 mmol/L 7 - 17 mmol/L [facility] Chloride [Moles/Vol] 103 mmol/L 98 - 10 8 mmol/L [facility] CO2 [Moles/Vol] 26 mmol/L 21 [...] Anion gap [Moles/Vol] 14 mmol/L Normal 7-17 Coi [facility] Comment on above: Performed By: #### [facility] #### [facility] [place] (DEFAULT) [address] [place] [address] Chloride [Moles/Vol] 103 mmol/L Normal 98-108 [facility] Comment on above: Performed By: #### [facility] #### [facility] [place] (DEFAULT) [address] [place] [address] CO2 [Moles/Vol] 26 mmol/L Normal 21-31 [facility] Comment on above: Performed By: #### [facility] #### [facility] [place] (DEFAULT) [address] [place] [address] Creatinine [Mass/Vol] 1.35 mg/dL High 0.50-1.20 [facility] Comment on above: Performed By: #### [facility] #### [facility] (DEFAULT) [address] [address] GFR/1.73 sq M.predicted among non-blacks MDRD (S/P/Bld) [Vol rate/Area] 40 mL/min/{1.73_m2} Low >=60 [facility] Comment on above: Result Comment: Repo rted eGFR is based on the CKD-EPI 2020 equation using creatinine, age, and sex. Performed By: #### [facility] #### [facility] (DEFAULT) [address] [address] Glucose [Mass/Vol] 182 mg/dL High Nonfastin -179 mg/dL; Fastin-99 [facility] Comment on above: Performed By: #### H EMO #### [facility] [place] (DEFAULT) [address] [address] Osmolality [Osmolality] 305 mosm/kg Normal 278-305 [facility] Comment on above: Performed By: #### H EMO #### [facility] [place] (DEFAULT) [address] [address] Potassium [Moles/Vol] 4.9 mmol/L Normal 3.5-5.0 [facility] Comment on above: Performed By: #### [facility] #### [facility] [place] (DEFAULT) [address] [address] Sodium [Moles/Vol] 138 mmol/L Normal 135-145 [facility] Comment on above: Performed By: #### H EMOGC #### [facility] [place] (DEFAULT) [address] [address] Urea nitrogen [Mass/Vol] 38 mg/dL High 7-25 [facility] Comment on above: Performed By: #### H EMO #### [facility] [place] (DEFAULT) [address] [place] [address] Urea nitrogen/Creatinine [Mass ratio] 28 mg/mg Normal [facility] Comment on above: Performed By: #### [facility] #### [facility] (DEFAULT) [address] [place] [address] EXTRA MICROon 08-09-2024 [facility] GLUCOSE POCon 08-09-2024 Glucose [Mass/Vol] 186 mg/dL High 70 - 179 mg/dL [facility] Interpretation and review of laboratory results Abnormal [facility] POC Sample Type CAPBL [facility] Glucose [Mass/Vol] 255 mg/dL High 70 - 179 mg/dL [facility] Interpretation and review of laboratory results Abnormal [facility] POC Sample Type CAPBL [facility] Glucose [Mass/Vol] 235 mg/dL High 70 - 179 mg/dL [facility] Interpretation and review of laboratory results Abnormal [facility] POC Sample Type CAPBL [facility] Glucose [Mass/Vol] 167 mg/dL 70 - 179 mg/dL [facility] POC Sample Type CAPBL [facility] INTERVENTIONAL UPPER ENDOSCO PYon 08-09-2024 Body surface area Derived from formula 1.9 m2 [facility] [place] LAB, [place] [facility] Study observation (narrative) [facility] MAGNESIUMon 08-09-2024 Interpretation and review of laboratory results Normal [facility] Magnesium [Mass/Vol] 1.8 mg/dL 1.6 - 2 .6 mg/dL [facility] Magnesium [Mass/Vol] 1.8 mg/dL Normal 1.6-2.6 [facility] Comment on above: Performed By: #### [facility] #### [facility] (DEFAULT) [address] [place] [address] No Panel Informationon 08-09 [facility] PT,INR,PTTon 08-09-2024 aPTT Coag (PPP) [Time] 38.4 s High [facility] INR Coag (Bld) [Relative time] 1 {INR} 0.9 - 1.1 [facility] Interpretation and review of laboratory results Abnormal [facility] PT Coag (PPP) [Time] 13 s [facility] aPTT Coag (Bld) [Time] 38.4 s High 24.0-34.3 [facility] Comment on above: Performed By: #### B LDCULT #### [facility] [place] (DEFAULT) [address] [place] [address] INR Coag (PPP) [Relative time] 1.0 {INR} Normal 0.9-1.1 [facility] Comment on above: Performed By: #### B LDCULT #### [facility] (DEFAULT) [address] [place] [address] PT Coag (PPP) [Time] 13.0 s Normal 11.9-14.2 [facility] Comment on above: Performed By: #### B LDCULT #### [facility] [place] (DEFAULT) [address] [place] [address] SURG PATH REQUESTon 08-10-19 Case Report [facility] Comment on above: Result Comment: Surg ical Pathology Report Case: [id number] Authorizing Provider: Judson Keith DO Collected: 08/09/2024 10:07 AM Ordering Location: [facility] Received: 08/09/2024 12:13 PM Pathologist: Renae Glez MD Specimen: STOMACH, gastric, r/o HP Performed By: #### S URGP #### [facility] [place] (DEFAULT) [address] [address] Clinical History R/O HP. Associated Diagnosis: None. Medical History: No medical history provided. Normal [facility] Comment on above: Performed By: #### S URGP #### [facility] (DEFAULT) [address] [place] [address] Gross Description [facility] Comment on above: Result Comment: The specimen is received in one properly labeled container with the patient's name and accession number. A. The specimen is designated "gastric, r/o hp" and consists of five fragments of jackson-pink soft tissue, from 0.2 up to 0.6 cm in greatest dimension. TE 1 Lab Use Only: JobID [id number] Grosser for this case was: Sunshine Hidalgo Performed By: #### S URGP #### [facility] (DEFAULT) [address] [place] [address] Microscopic Description A microscopic examination was performed. [facility] Comment on above: Performed By: #### S URGP #### [facility] (DEFAULT) [address] [address] Pathologic Diagnosis [facility] Comment on above: Result Comment: Anjelica echols, biopsy: Focal erosion No Helicobacter pylori identified at 1005 EDT Performed By: #### S URGP #### [facility] (DEFAULT) [address] [address] Professional Interpretation Performed at: [facility] Comment on above: Result Comment: [facility] For Immediate Release to Patient's [facility] [facility]? Yes [address] [address] Performed By: #### S URGP #### [facility] (DEFAULT) [address] [address] CBC,PLATELETSon 08-08-2024 Erythrocyte distribution width (RBC) [Ratio] [...] [facility] [place] RBC (Bld) [#/Vol] 4.9 10*6/uL [facility] WBC (Bld) [#/Vol] 10.39 10*3/uL 3.99 - 11.19 K/uL [facility] Hematocrit (Bld) [Volume fraction] 45.7 % High 34.9-44.3 [facility] Comment on above: Performed By: #### [facility] #### [facility] [place] (DEFAULT) [address] [address] Hemoglobin (Bld) [Mass/Vol] 14.4 g/dL Normal 11.4-15.2 [facility] Comment on above: Performed By: #### [facility] #### [facility] [place] (DEFAULT) [address] [place] [address] MCV (RBC) [Entitic vol] 93.3 fL Normal 79.6-97.7 O [facility] Comment on above: Performed By: #### [facility] #### [facility] [place] (DEFAULT) [address] [place] [address] Mean Cell Hgb 29.4 pg Normal 25.9-33.9 [facility] Comment on above: Performed By: #### [facility] #### [facility] [place] (DEFAULT) [address] [place] [address] Mean Cell Hgb Conc 31.5 g/dL Normal 31.4-35.9 [facility] Comment on above: Performed By: #### H EMOGC #### [facility] (DEFAULT) [address] [place] [address] Platelet mean volume (Bld) [Entitic vol] 10.9 fL Normal 8.5-12.2 [facility] Comment on above: Performed By: #### H EMOGC #### [facility] [place] (DEFAULT) [address] [place] [address] Platelets (Bld) [#/Vol] 212 10*3/uL Normal 150-393 [facility] Comment on above: Performed By: #### H EMOGC #### [facility] [place] (DEFAULT) [address] [place] [address] RBC (Bld) [#/Vol] 4.90 10*6/uL Normal 3.91-5.04 [facility] Comment on above: Performed By: #### H EMOGC #### [facility] [place] (DEFAULT) [address] [place] [address] RBC Distribution 13.6 % Normal 10.8-14.9 [facility] Comment on above: Performed By: #### H EMOGC #### [facility] [place] (DEFAULT) [address] [place] [address] WBC (Bld) [#/Vol] 10.39 10*3/uL Normal 3.99-11.19 [facility] Comment on above: Performed By: #### H EMOGC #### [facility] [place] (DEFAULT) [address] [place] [address] CHEM 7 (LYTES,BUN,CREA,GLUC) on 08-08-2024 Anion gap [...] [facility] [place] Osmolality Calc [Osmolality] 302 [facility] Potassium [Moles/Vol] 4.3 mmol/L 3.5 [...] Anion gap [Moles/Vol] 15 mmol/L Normal 7-17 [facility] Comment on above: Performed By: #### Jaiden NGUYEN CHM7 ####[facility] [place] (DEFAULT)[address] [place] [address] Chloride [Moles/Vol] 104 mmol/L Normal 98-108 [facility] Comment on above: Performed By: #### Jaiden NGUYEN CHM7 ####[facility] [place] (DEFAULT)[address] [place] [address] CO2 [Moles/Vol] 25 mmol/L Normal 21-31 [facility] Comment on above: Performed By: #### Jaiden NGUYEN CHM7 ####[facility] [place] (DEFAULT)[address] [place] [address] Creatinine [Mass/Vol] 1.15 mg/dL Normal 0.50-1.20 [facility] Comment on above: Performed By: #### Jaiden NGUYEN CHM7 ####[facility] [place] (DEFAULT)[address] [place] [address] GFR/1.73 sq M.predicted among non-blacks MDRD (S/P/Bld) [Vol rate/Area] 48 mL/min/{1.73_m2} Low >=60 [facility] Comment on above: Result Comment: Repo rted eGFR is based on the CKD-EPI 2020 equation using creatinine, age, and sex. Performed By: #### HEYDI PALACIOS7 ####[facility] (DEFAULT)[address] [place] [address] Glucose [Mass/Vol] 111 mg/dL Normal Nonfastin -179 mg/dL; Fastin-99 [facility] Comment on above: Performed By: #### HEYDI PALACIOS7 ####[facility] (DEFAULT)[address] [place] [address] Osmolality [Osmolality] 302 mosm/kg Normal 278-305 [facility] Comment on above: Performed By: #### CAMERON PALACIOS ####[facility] (DEFAULT)[address] [place] [address] Potassium [Moles/Vol] 4.3 mmol/L Normal 3.5-5.0 [facility] Comment on above: Performed By: #### HEYDI PALACIOS7 ####[facility] [place] (DEFAULT)[address] [place] [address] Sodium [Moles/Vol] 140 mmol/L Normal 135-145 [facility] Comment on above: Performed By: #### HEYDI PALACIOS7 ####[facility] (DEFAULT)[address] [facility] [place] [address] Urea nitrogen [Mass/Vol] 35 mg/dL High 7-25 [facility] Comment on above: Performed By: #### HEYDI PALACIOS7 ####[facility] [place] (DEFAULT)[address] [place] [address] Urea nitrogen/Creatinine [Mass ratio] 30 mg/mg Normal [facility] Comment on above: Performed By: #### M CHM7 ####[facility] (DEFAULT)[address] [place] [address] CT HEAD WITHOUT CONTRASTon 0 08-08-2024 CT [...] have reviewed and approved this report. Normal [facility] CT Head WO contraston 2024 [facility] Study observation (narrative) [facility] GLUCOSE POCon 08-08-2024 Glucose [Mass/Vol] 150 mg/dL 70 - 179 mg/dL [facility] POC Sample Type [facility] Glucose [Mass/Vol] 148 mg/dL 70 - 179 mg/dL [facility] [place] POC Sample Type CAPBL [facility] Glucose [Mass/Vol] 192 mg/dL High 70 - 179 mg/dL [facility] [place] Interpretation and review of laboratory results Abnormal [facility] POC Sample Type [facility] Glucose [Mass/Vol] 198 mg/dL High 70 - 179 mg/dL [facility] [place] Interpretation and review of laboratory results Abnormal [facility] POC Sample Type CAPBL [facility] Glucose [Mass/Vol] 186 mg/dL High 70 - 179 mg/dL [facility] [place] Interpretation and review of laboratory results Abnormal [facility] POC Sample Type CAPBL [facility] MAGNESIUMon 08-08-2024 Interpretation and review of laboratory results Normal [facility] [place] Magnesium [Mass/Vol] 1.7 mg/dL 1.6 - 2 .6 mg/dL [facility] [place] Magnesium [Mass/Vol] 1.7 mg/dL Normal 1.6-2.6 [facility] Comment on above: Performed By: #### M [facility] ####[facility] [place] (DEFAULT)[address] [place] [address] No Panel Informationon 08-08 [facility] Interpretation and review of laboratory results Abnormal [facility] Ketones (U) [Mass/Vol] Trace Abnormal Negative OS [facility] Leukocyte esterase Test strip Ql (U) Large Abnormal Negative [facility] Nitrite Ql (U) Positive Abnormal Negative [facility] pH (U) 7.0 [pH] 5.0 - 7.0 [facility] Protein (U) [Mass/Vol] Trace Abnormal Negative OS [facility] RBC (U) [#/Vol] Trace Abnormal Negative [facility] RBC LM.HPF (Urine sed) [#/Area] 6-10 Abnormal [facility] Specific gravity (U) [Rel density] 1.023 1.001 - 1.035 [facility] [place] Urobilinogen (U) [Mass/Vol] 1.0 E.U./dL 0.2 E.U/dL, 1.0 E.U/dL [facility] [place] WBC LM.HPF (Urine sed) [#/Area] /[HPF] Abnormal [facility] URINALYSIS REFLEX TO CULTURE PERFORMABLEon 08-08-2024 Appearance (U) Cloudy Abnormal Clear [facility] Comment on above: Order Comment: For i ndwelling catheters, specimen collection is acceptable on catheter day 1 and 2 only. ? Performed By: #### T YPEC #### [facility] [place] (DEFAULT) [address] [address] Bacteria PRESENT Abnormal ABSENT [facility] Comment on above: Order Comment: For i ndwelling catheters, specimen collection is acceptable on catheter day 1 and 2 only. ? Performed By: #### T YPEC #### [facility] [place] (DEFAULT) [address] [address] Blood Urine Trace Abnormal Negative [facility] Comment on above: Order Comment: For i ndwelling catheters, specimen collection is acceptable on catheter day 1 and 2 only. ? Performed By: #### T YPEC #### [facility] [place] (DEFAULT) [address] [place] [address] Color (U) Yellow Normal Yellow [facility] Comment on above: Order Comment: For i ndwelling catheters, specimen collection is acceptable on catheter day 1 and 2 only. ? Performed By: #### T YPEC #### [facility] [place] (DEFAULT) [address] [place] [address] Glucose Ql (U) Negative Normal Negative [facility] Comment on above: Order Comment: For i ndwelling catheters, specimen collection is acceptable on catheter day 1 and 2 only. ? Performed By: #### T YPEC #### [facility] [place] (DEFAULT) [address] [place] [address] Ketones Ql (U) Trace Abnormal Negative [facility] Comment on above: Order Comment: For i ndwelling catheters, specimen collection is acceptable on catheter day 1 and 2 only. ? Performed By: #### T YPEC #### [facility] [place] (DEFAULT) [address] [place] [address] Leukocyte esterase Test strip Ql (U) Large Abnormal Negative [facility] Comment on above: Order Comment: For i ndwelling catheters, specimen collection is acceptable on catheter day 1 and 2 only. ? Performed By: #### T YPEC #### [facility] [place] (DEFAULT) [address] [place] [address] Nitrites Urine Positive Abnormal Negative [facility] Comment on above: Order Comment: For i ndwelling catheters, specimen collection is acceptable on catheter day 1 and 2 only. ? Performed By: #### T YPEC #### [facility] (DEFAULT) [address] [place] [address] pH (U) 7.0 [pH] Normal 5.0-7.0 [facility] Comment on above: Order Comment: For i ndwelling catheters, specimen collection is acceptable on catheter day 1 and 2 only. ? Performed By: #### T YPEC #### [facility] [place] (DEFAULT) [address] [place] [address] Protein Urine Trace Abnormal Negative [facility] Comment on above: Order Comment: For i ndwelling catheters, specimen collection is acceptable on catheter day 1 and 2 only. ? Performed By: #### T YPEC #### [facility] [place] (DEFAULT) [address] [address] RBC Urine 6-10 Abnormal 0-2 [facility] Comment on above: Order Comment: For i ndwelling catheters, specimen collection is acceptable on catheter day 1 and 2 only. ? Performed By: #### T YPEC #### [facility] [place] (DEFAULT) [address] [address] Specific [place] Urine 1.023 Normal 1.001-1.035 [facility] Comment on above: Order Comment: For i ndwelling catheters, specimen collection is acceptable on catheter day 1 and 2 only. ? Performed By: #### T YPEC #### [facility] [place] (DEFAULT) [address] [address] Squamous/Epithelial Cells, Urine 0-2/hpf Normal 0-2/hpf, 3-5/hpf = 1+ [facility] Comment on above: Order Comment: For i ndwelling catheters, specimen collection is acceptable on catheter day 1 and 2 only. ? Performed By: #### T YPEC #### [facility] [place] (DEFAULT) [address] [address] Urobilinogen Urine 1.0 E.U./dL Normal 0.2 E.U/d L, 1.0 E.U/dL [facility] Comment on above: Order Comment: For i ndwelling catheters, specimen collection is acceptable on catheter day 1 and 2 only. ? Performed By: #### T YPEC #### [facility] [place] (DEFAULT) [address] [address] WBC LM.HPF (Urine sed) [#/Area] /[HPF] Abnormal 0 - 5 [facility] Comment on above: Order Comment: For i ndwelling catheters, specimen collection is acceptable on catheter day 1 and 2 only. ? Performed By: #### T YPEC #### [facility] [place] (DEFAULT) [address] [address] URINE CULTUREon 08-08-2024 Amikacin [Susceptibility] <= Invalid Interpretation Code [facility] Comment on above: Order Comment: [...] [facility] [place] (DEFAULT) [address] [place] [address] Ampicillin [Susceptibility] >=32 Resistant [facility] Comment on above: Order Comment: [...] [facility] [place] (DEFAULT) [address] [place] [address] Ampicillin+Sulbactam [Susceptibility] >=32 Resistant [facility] Comment on above: Order Comment: [...] [facility] [place] (DEFAULT) [address] [place] [address] ceFAZolin [Susceptibility] >= Resistant [facility] Comment on above: Order Comment: [...] Performed By: #### T YPEC #### [facility] (DEFAULT) [address] [address] Cefepime [Susceptibility] <= Invalid Interpretation Code [facility] Comment on above: Order Comment: [...] Performed By: #### T YPEC #### [facility] (DEFAULT) [address] [address] cefTRIAXone [Susceptibility] <= Invalid Interpretation Code [facility] Comment on above: Order Comment: [...] Performed By: #### T YPEC #### [facility] (DEFAULT) [address] [address] Ciprofloxacin [Susceptibility] >= Resistant [facility] Comment on above: Order Comment: [...] [facility] [place] (DEFAULT) [address] [address] Ertapenem [Susceptibility] <= Invalid Interpretation Code [facility] Comment on above: Order Comment: [...] Performed By: #### T YPEC #### [facility] (DEFAULT) [address] [address] Gentamicin [Susceptibility] <= Invalid Interpretation Code [facility] Comment on above: Order Comment: [...] [facility] [place] (DEFAULT) [address] [address] levoFLOXacin [Susceptibility] >= Resistant [facility] Comment on above: Order Comment: [...] Performed By: #### T YPEC #### [facility] (DEFAULT) [address] [address] Nitrofurantoin [Susceptibility] 128 ug/mL Resistant [facility] Comment on above: Order Comment: [...] Performed By: #### T YPEC #### [facility] (DEFAULT) [address] [place] [address] Piperacillin+Tazobactam [Susceptibility] 8 ug/mL Invalid Interpretation Code [facility] Comment on above: Order Comment: [...] [facility] [place] (DEFAULT) [address] [place] [address] Trimethoprim+Sulfametho xazole [Susceptibility] <= Invalid Interpretation Code [facility] Comment on above: Order Comment: [...] [facility] [place] (DEFAULT) [address] [place] [address] CBC,PLATELETSon 08-07-2024 Erythrocyte distribution width (RBC) [Ratio] [...] [facility] [place] RBC (d) [#/Vol] 4.63 10*6/uL [facility] WBC (Bld) [#/Vol] 11.3 10*3/uL High 3.99 - 11.19 K/uL [facility] CHEM 7 (LYTES,BUN,CREA,GLUC) on 08-07-2024 [...] [facility] [place] POC Sample Type CAPBL [facility] Glucose [Mass/Vol] 106 mg/dL 70 - 179 mg/dL [facility] POC Sample Type CAPBL [facility] Glucose [Mass/Vol] 104 mg/dL 70 - 179 mg/dL [facility] POC Sample Type CAPBL [facility] MAGNESIUMon 08-07-2024 Interpretation and review of laboratory results Normal [facility] [place] Magnesium [Mass/Vol] 1.8 mg/dL 1.6 - 2 .6 mg/dL [facility] [place] No Panel Informationon 08-07 [facility] CBC,PLATELETSon 08-06-2024 Hematocrit (Bld) [Volume fraction] 43.1 % Normal 34.9-44.3 [facility] Comment on above: Performed By: #### X M #### [facility] [place] (DEFAULT) [address] [place] [address] Hemoglobin (Bld) [Mass/Vol] 13.7 g/dL Normal 11.4-15.2 [facility] Comment on above: Performed By: #### X M #### [facility] [place] (DEFAULT) [address] [place] [address] MCV (RBC) [Entitic vol] 93.1 fL Normal 79.6-97.7 [facility] Comment on above: Performed By: #### X M #### [facility] [place] (DEFAULT) [address] [place] [address] Mean Cell Hgb 29.6 pg Normal 25.9-33.9 [facility] Comment on above: Performed By: #### X M #### [facility] [place] (DEFAULT) [address] [place] [address] Mean Cell Hgb Conc 31.8 g/dL Normal 31.4-35.9 [facility] Comment on above: Performed By: #### X M #### [facility] [place] (DEFAULT) [address] [place] [address] Platelet mean volume (Bld) [Entitic vol] 11.1 fL Normal 8.5-12.2 [facility] Comment on above: Performed By: #### X M #### [facility] [place] (DEFAULT) [address] [place] [address] Platelets (Bld) [#/Vol] 214 10*3/uL Normal 150-393 [facility] Comment on above: Performed By: #### X M #### [facility] [place] (DEFAULT) [address] [place] [address] RBC (Bld) [#/Vol] 4.63 10*6/uL Normal 3.91-5.04 [facility] Comment on above: Performed By: #### X M #### [facility] [place] (DEFAULT) [address] [place] [address] RBC Distribution 13.9 % Normal 10.8-14.9 [facility] Comment on above: Performed By: #### X M #### [facility] [place] (DEFAULT) [address] [place] [address] WBC (Bld) [#/Vol] 11.30 10*3/uL High 3.99-11.19 [facility] Comment on above: Performed By: #### X M #### [facility] [place] (DEFAULT) [address] [place] [address] Erythrocyte distribution width (RBC) [Ratio] 13.9 % [...] [facility] [place] RBC (Bld) [#/Vol] 4.77 10*6/uL [facility] WBC (Bld) [#/Vol] 12.14 10*3/uL High 3.99 - 11.19 K/uL [facility] CHEM 7 (LYTES,BUN,CREA,GLUC) on 08-06-2024 Anion gap [Moles/Vol] 13 mmol/L Normal 7-17 [facility] Comment on above: Performed By: #### Jaiden NGUYEN CHM7 ####[facility] [place] (DEFAULT)[address] [place] [address] Chloride [Moles/Vol] 105 mmol/L Normal 98-108 [facility] Comment on above: Performed By: #### Jaiden NGUYEN CHM7 ####[facility] [place] (DEFAULT)[address] [place] [address] CO2 [Moles/Vol] 28 mmol/L Normal 21-31 [facility] Comment on above: Performed By: #### Jaiden NGUYEN CHM7 ####[facility] (DEFAULT)[address] [place] [address] Creatinine [Mass/Vol] 1.19 mg/dL Normal 0.50-1.20 [facility] Comment on above: Performed By: #### Jaiden NGUYEN CHM7 ####[facility] [place] (DEFAULT)[address] [place] [address] GFR/1.73 sq M.predicted among non-blacks MDRD (S/P/Bld) [Vol rate/Area] 47 mL/min/{1.73_m2} Low >=60 [facility] Comment on above: Result Comment: Repo rted eGFR is based on the CKD-EPI 2020 equation using creatinine, age, and sex. Performed By: #### HEYDI PALACIOS7 ####[facility] (DEFAULT)[address] [place] [address] Glucose [Mass/Vol] 90 mg/dL Normal Nonfastin -179 mg/dL; Fastin-99 [facility] Comment on above: Performed By: #### HEYDI PALACIOS7 ####[facility] (DEFAULT)[address] [place] [address] Osmolality [Osmolality] 304 mosm/kg Normal 278-305 [facility] Comment on above: Performed By: #### HEYDI PALACIOS7 ####[facility] [place] (DEFAULT)[address] [place] [address] Potassium [Moles/Vol] 4.2 mmol/L Normal 3.5-5.0 [facility] Comment on above: Performed By: #### CAMERON PALACIOS ####[facility] [place] (DEFAULT)[address] [place] [address] Sodium [Moles/Vol] 142 mmol/L Normal 135-145 [facility] Comment on above: Performed By: #### HEYDI PALACIOS7 ####[facility] [place] (DEFAULT)[address] [place] [address] Urea nitrogen [Mass/Vol] 34 mg/dL High 7-25 [facility] Comment on above: Performed By: #### HEYDI PALACIOS7 ####[facility] (DEFAULT)[address] [place] [address] Urea nitrogen/Creatinine [Mass ratio] 29 mg/mg Normal [facility] Comment on above: Performed By: #### HEYDI PALACIOS7 ####[facility] (DEFAULT)[address] [place] [address] Anion gap [Moles/Vol] 14 mmol/L 7 - 17 mmol/L [facility] Chloride [Moles/Vol] 107 mmol/L 98 - 10 8 mmol/L [facility] CO2 [Moles/Vol] 27 mmol/L 21 - 31 mmol/L [facility] Creatinine [Mass/Vol] 1.19 mg/dL 0.50 - 1.20 mg/dL [facility] eGFR, CKD-EPI, Female 47 Low - PINF [facility] Glucose [Mass/Vol] 88 mg/dL 70 - 179 mg/dL [facility] Interpretation and review of laboratory results Abnormal [facility] Osmolality Calc [Osmolality] 307 High [facility] Potassium [Moles/Vol] 3.9 mmol/L 3.5 - 5.0 mmol/L [facility] Sodium [Moles/Vol] 144 mmol/L 135 - 145 mmol/L [facility] Urea nitrogen [Mass/Vol] 34 mg/dL High 7 - 25 mg/dL [facility] Urea nitrogen/Creatinine [Mass ratio] 29 mg/mg [facility] [place] POC Sample Type VENO [facility] Glucose [Mass/Vol] 219 mg/dL High 70 - 179 mg/dL [facility] Interpretation and review of laboratory results Abnormal [facility] Glucose [Mass/Vol] 249 mg/dL High 70 - 179 mg/dL [facility] Glucose [Mass/Vol] 178 mg/dL 70 - 179 mg/dL [facility] Glucose [Mass/Vol] 194 mg/dL High 70 - 179 mg/dL [facility] Glucose [Mass/Vol] 93 mg/dL 70 - 179 mg/dL [facility] IONIZED CALCIUM, WHOLE BLOOD Ordered By: Zuleika Blunt on 08-06-2024 Calcium.ionized (Bld) [Moles/Vol] 4.72 mg/dL 4.60 - 5.30 mg/dL [facility] Interpretation and review of laboratory results Normal [facility] MAGNESIUMon 08-06-2024 Magnesium [Mass/Vol] 1.8 mg/dL Normal 1.6-2.6 [facility] Comment on above: Performed By: #### M [facility] ####[facility] (DEFAULT)[address] [place] [address] Magnesium [Mass/Vol] 2.4 mg/dL 1.6 - 2 .6 mg/dL [facility] No Panel Informationon 08-06 POC Sample Type [facility] Interpretation and review of laboratory results Abnormal [facility] POC Sample Type [facility] Interpretation and review of laboratory results Normal [facility] PHOSPHATE, INORGANICon 08-06 Phosphate [Mass/Vol] 3.2 mg/dL 2.2 - 4 .6 mg/dL [facility] RF videography Hypopharynx a nd Esophagus Views W liquid and paste contrast PO during swallowingon 08-06-2024 RADIOLOGY RADIOLOGY [facility] Radiology Study observation (narrative) [facility] RF videography Hypopharynx a nd Esophagus Views W liquid and paste contrast PO during swallowingOrdered By: Gerry Resendez on 08-06-2024 [facility] Work Phone: SPEECH MODIFIED BARIUM SWALL OWon 08-06-2024 [facility] XR FLUORO MODIFIED BARIUM SW [...] for specific therapeutic recommendations, please see the material assembler report of the speech pathologist. Examination performed by ARCADIO Nicole, under the direct supervision of Gerry Resendez M.D., who was immediately available on site during the examination. I personally viewed and interpreted these images and I have reviewed and approved this report. Normal [facility] CBC,PLATELETSon 08-05-2024 Hematocrit (Bld) [Volume fraction] 44.0 % Normal 34.9-44.3 [facility] Comment on above: Performed By: #### B LDCULT #### [facility] (DEFAULT) [address] [address] Hemoglobin (Bld) [Mass/Vol] 13.9 g/dL Normal 11.4-15.2 [facility] Comment on above: Performed By: #### B LDCULT #### [facility] (DEFAULT) [address] [address] MCV (RBC) [Entitic vol] 92.2 fL Normal 79.6-97.7 O [facility] Comment on above: Performed By: #### B LDCULT #### [facility] (DEFAULT) [address] [address] Mean Cell Hgb 29.1 pg Normal 25.9-33.9 [facility] Comment on above: Performed By: #### B LDCULT #### [facility] [place] (DEFAULT) [address] [place] [address] Mean Cell Hgb Conc 31.6 g/dL Normal 31.4-35.9 [facility] Comment on above: Performed By: #### B LDCULT #### [facility] (DEFAULT) [address] [place] [address] Platelet mean volume (Bld) [Entitic vol] 10.7 fL Normal 8.5-12.2 [facility] Comment on above: Performed By: #### B LDCULT #### [facility] [place] (DEFAULT) [address] [place] [address] Platelets (Bld) [#/Vol] 216 10*3/uL Normal 150-393 [facility] Comment on above: Performed By: #### B LDCULT #### [facility] (DEFAULT) [address] [place] [address] RBC (Bld) [#/Vol] 4.77 10*6/uL Normal 3.91-5.04 [facility] Comment on above: Performed By: #### B LDCULT #### [facility] [place] (DEFAULT) [address] [place] [address] RBC Distribution 13.9 % Normal 10.8-14.9 [facility] Comment on above: Performed By: #### B LDCULT #### [facility] [place] (DEFAULT) [address] [place] [address] WBC (Bld) [#/Vol] 12.14 10*3/uL High 3.99-11.19 [facility] Comment on above: Performed By: #### B LDCULT #### [facility] [place] (DEFAULT) [address] [place] [address] Erythrocyte distribution width (RBC) [Ratio] 13.9 % [...] [facility] [place] RBC (Bld) [#/Vol] 4.3 10*6/uL [facility] WBC (Bld) [#/Vol] 10.61 10*3/uL 3.99 - 11.19 K/uL [facility] Hematocrit (Bld) [Volume fraction] 39.6 % Normal 34.9-44.3 [facility] Comment on above: Performed By: #### [facility] ####[facility] (DEFAULT)[address] [place] [address] Hemoglobin (Bld) [Mass/Vol] 12.6 g/dL Normal 11.4-15.2 [facility] Comment on above: Performed By: #### [facility] ####[facility] [place] (DEFAULT)[address] [place] [address] MCV (RBC) [Entitic vol] 92.1 fL Normal 79.6-97.7 O [facility] Comment on above: Performed By: #### [facility] ####[facility] [place] (DEFAULT)[address] [facility] [place] [address] Mean Cell Hgb 29.3 pg Normal 25.9-33.9 [facility] Comment on above: Performed By: #### H EMOGC ####[facility] [place] (DEFAULT)[address] [place] [address] Mean Cell Hgb Conc 31.8 g/dL Normal 31.4-35.9 [facility] Comment on above: Performed By: #### H EMOGC ####[facility] (DEFAULT)[address] [facility] [place] [address] Platelet mean volume (Bld) [Entitic vol] 10.7 fL Normal 8.5-12.2 [facility] Comment on above: Performed By: #### H EMOGC ####[facility] [place] (DEFAULT)[address] [facility] [place] [address] Platelets (Bld) [#/Vol] 198 10*3/uL Normal 150-393 [facility] Comment on above: Performed By: #### H EMOGC ####[facility] [place] (DEFAULT)[address] [facility] [place] [address] RBC (Bld) [#/Vol] 4.30 10*6/uL Normal 3.91-5.04 [facility] Comment on above: Performed By: #### H EMOGC ####[facility] (DEFAULT)[address] [facility] [place] [address] RBC Distribution 13.9 % Normal 10.8-14.9 [facility] Comment on above: Performed By: #### H EMOGC ####[facility] [place] (DEFAULT)[address] [facility] [place] [address] WBC (Bld) [#/Vol] 10.61 10*3/uL Normal 3.99-11.19 [facility] Comment on above: Performed By: #### H EMOGC ####[facility] [place] (DEFAULT)[address] [place] [address] CHEM 7 (LYTES,BUN,CREA,GLUC) on 08-05-2024 Anion gap [Moles/Vol] 14 mmol/L Normal 7-17 [facility] Comment on above: Performed By: #### S URGP #### [facility] (DEFAULT) [address] [place] [address] Chloride [Moles/Vol] 107 mmol/L Normal 98-108 [facility] Comment on above: Performed By: #### S URGP #### [facility] (DEFAULT) [address] [place] [address] CO2 [Moles/Vol] 27 mmol/L Normal 21-31 [facility] Comment on above: Performed By: #### S URGP #### [facility] (DEFAULT) [address] [place] [address] Creatinine [Mass/Vol] 1.19 mg/dL Normal 0.50-1.20 [facility] Comment on above: Performed By: #### S URGP #### [facility] (DEFAULT) [address] [place] [address] GFR/1.73 sq M.predicted among non-blacks MDRD (S/P/Bld) [Vol rate/Area] 47 mL/min/{1.73_m2} Low >=60 [facility] Comment on above: Result Comment: Repo rted eGFR is based on the CKD-EPI 2020 equation using creatinine, age, and sex. Performed By: #### S URGP #### [facility] (DEFAULT) [address] [place] [address] Glucose [Mass/Vol] 88 mg/dL Normal Nonfastin -179 mg/dL; Fastin-99 [facility] Comment on above: Performed By: #### S URGP #### [facility] (DEFAULT) [address] [place] [address] Osmolality [Osmolality] 307 mosm/kg High 278-305 [facility] Comment on above: Performed By: #### S URGP #### [facility] (DEFAULT) [address] [place] [address] Potassium [Moles/Vol] 3.9 mmol/L Normal 3.5-5.0 [facility] Comment on above: Performed By: #### S URGP #### [facility] [place] (DEFAULT) [address] [place] [address] Sodium [Moles/Vol] 144 mmol/L Normal 135-145 [facility] Comment on above: Performed By: #### S URGP #### [facility] [place] (DEFAULT) [address] [place] [address] Urea nitrogen [Mass/Vol] 34 mg/dL High 7-25 [facility] Comment on above: Performed By: #### S URGP #### [facility] [place] (DEFAULT) [address] [place] [address] Urea nitrogen/Creatinine [Mass ratio] 29 mg/mg Normal [facility] Comment on above: Performed By: #### S URGP #### [facility] [place] (DEFAULT) [address] [place] [address] Anion gap [Moles/Vol] 14 mmol/L 7 - [...] Anion gap [Moles/Vol] 14 mmol/L Normal 7-17 [facility] Comment on above: Performed By: #### X M #### [facility] [place] (DEFAULT) [address] [address] Chloride [Moles/Vol] 108 mmol/L Normal 98-108 [facility] Comment on above: Performed By: #### X M #### [facility] [place] (DEFAULT) [address] [address] CO2 [Moles/Vol] 25 mmol/L Normal 21-31 [facility] Comment on above: Performed By: #### X M #### [facility] [place] (DEFAULT) [address] [address] Creatinine [Mass/Vol] 1.45 mg/dL High 0.50-1.20 [facility] Comment on above: Performed By: #### X M #### [facility] [place] (DEFAULT) [address] [address] GFR/1.73 sq M.predicted among non-blacks MDRD (S/P/Bld) [Vol rate/Area] 37 mL/min/{1.73_m2} Low >=60 [facility] Comment on above: Result Comment: Repo rted eGFR is based on the CKD-EPI 2020 equation using creatinine, age, and sex. Performed By: #### X M #### [facility] (DEFAULT) [address] [address] Glucose [Mass/Vol] 242 mg/dL High Nonfastin -179 mg/dL; Fastin-99 [facility] Comment on above: Performed By: #### X M #### [facility] [place] (DEFAULT) [address] [place] [address] Osmolality [Osmolality] 315 mosm/kg High 278-305 [facility] Comment on above: Performed By: #### X M #### [facility] (DEFAULT) [address] [place] [address] Potassium [Moles/Vol] 3.8 mmol/L Normal 3.5-5.0 [facility] Comment on above: Performed By: #### X M #### [facility] [place] (DEFAULT) [address] [place] [address] Sodium [Moles/Vol] 143 mmol/L Normal 135-145 [facility] Comment on above: Performed By: #### X M #### [facility] [place] (DEFAULT) [address] [place] [address] Urea nitrogen [Mass/Vol] 35 mg/dL High 7-25 [facility] Comment on above: Performed By: #### X M #### [facility] [place] (DEFAULT) [address] [place] [address] Urea nitrogen/Creatinine [Mass ratio] 24 mg/mg Normal [facility] Comment on above: Performed By: #### X M #### [facility] (DEFAULT) [address] [place] [address] Cardiac echo study Procedure Ordered By: Ezequiel Figueroa on 08-05-2024 Ao ASC index 1.56 cm/m2 [facility] [place] Work Phone: [phone] Ao peak fidel 1.23 m/s [facility] Work Phone: [phone] Ao SOV index 1.56 cm/m2 [facility] Work Phone: [phone] Ao STJ index 1.36 cm/m2 [facility] Work Phone: [phone] Ao VTI 24.81 cm [facility] Work Phone: [phone] Ascending aorta 2.97 cm [facility] Work Phone: [phone] AV LVOT peak gradient 4 mmHg [facility] Work Phone: [phone] AV mean gradient 4 mmHg [facility] Work Phone: [phone] AV peak gradient 6 mmHG [facility] Work Phone: [phone] AV valve area 2.72 cm2 [facility] Work Phone: [phone] AV Velocity Ratio 0.8 [facility] Work Phone: [phone] MARKUS (continuity Vmax) 2.55 cm2 [facility] Work Phone: [phone] MARKUS (continuity VTI) 2.72 cm2 [facility] Work Phone: [phone] MARKUS index (continuity Vmax) 1.34 m/s [facility] Work Phone: [phone] MARKUS index (continuity VTI) 1.43 cm2/m2 [facility] [place] Work Phone: [phone] Avg e' pk fidel 0.09 m/s [facility] Work Phone: [phone] Body surface area Derived from formula 1.9 m2 [facility] [place] Work Phone: [phone] BP EF 55 % [facility] Work Phone: [phone] DI (Vmax) 0.8 [facility] [place] Work Phone: [phone] DI (VTI) 0.86 m/2 [facility] [place] Work Phone: [phone] e' lateral pk fidel 0.0845 m/s [facility]: [phone] e' lateral pk fidel 0.08 m/s [facility] Work Phone: [phone] e' septal pk fidel 0.0953 m/s [facility] Work Phone: [phone] e' septal pk fidel 0.1 m/s [facility] Work Phone: [phone] EF SP 2CH 56 [facility] Work Phone: [phone] EF SP 4CH 51 [facility] Work Phone: [phone] EST RAP 3 mmHg [facility] Work Phone: [phone] EST RVSP 29 mmHg [facility] Work Phone: [phone] FS 31 % [facility] Work Phone: [phone] IVC ostium 1.64 cm [facility] Work Phone: [phone] IVS 1.14 cm [facility] Work Phone: [phone] LA area 4CH 29.07 cm2 [facility] Work Phone: [phone] LA ESV BP (MOD) 86 [facility] Work Phone: [phone] LA ESV BP (MOD) index 45 mL/m2 [facility] Work Phone: [phone] LA ESV SP 2CH (MOD) 81 mL [facility] Work Phone: [phone] LA ESV SP 4CH (MOD) 93 mL [facility] Work Phone: [phone] LV EDV BP 88 mL [facility] Work Phone: [phone] LV EDV SP 2CH 85 mL [facility] Work Phone: [phone] LV EDV SP 4CH 86 mL [facility] Work Phone: [phone] LV ESV BP 40 mL [facility] [place] Work Phone: [phone] LV ESV SP 2CH 37 mL [facility] Work Phone: [phone] LV ESV SP 4CH 42 mL [facility] Work Phone: [phone] LV mass 146.48 g [facility] Work Phone: [phone] LV Mass Index 77.1 g/m2 [facility] Work Phone: [phone] LV RWT 0.56 [facility] [place] Work Phone: [phone] LV stroke volume BP (ml) 48 mL [facility] Work Phone: [phone] LV stroke volume index BP 25.26 mL/m2 [facility] [place] Work Phone: [phone] LVIDD 3.93 cm [facility] Work Phone: [phone] LVIDS 2.7 cm [facility] [place] Work Phone: [phone] LVOT area 3.17 cm2 [facility] [place] Work Phone: [phone] LVOT diameter 2.01 cm [facility] Work Phone: [phone] LVOT peak fidel 0.99 m/s [facility] [place] Work Phone: [phone] LVOT peak VTI 21.3 cm [facility] Work Phone: [phone] LVOT stroke volume 68 cm3 [facility] Work Phone: [phone] LVOT stroke volume index 35.55 ml/m2 [facility] [place] Work Phone: [phone] MV mean gradient 3 mmHg [facility] Work Phone: [phone] MV peak gradient 6 mmHg [facility] Work Phone: [phone] MV valve area by continuity eq 2.61 cm2 [facility] Work Phone: [phone] MV VTI 25.92 cm [facility] [place] Work Phone: [phone] MVA (continuity VTI) 2.6 cm [facility] [place] Work Phone: [phone] OSU AV VTI RATIO PRE STRESS 0.86 [facility] [place] Work Phone: [facility] ECHO LV BIPLANE SYSTOLIC VOLUME INDEX 21.05 mL/m2 [facility] Work Phone: [facility] ECHO LV BP DIASTOLIC VOLUME INDEX 46.32 mL/m2 [facility] Work Phone: PV mean gradient 3 mmHg [facility] Work Phone: PV peak gradient 6 mmHg [facility] Work Phone: PV PK FIDEL 1.23 m/s [facility] Work Phone: PW 1.11 cm [facility] Work Phone: RA area 4CH (MOD) 22.74 cm2 [facility] Work Phone: RA vol index 4CH (MOD) 36.32 mL/m2 O [facility] Work Phone: Right atrium volume 4 chamber method of disks 69 mL [facility] Work Phone: RV Area diastolic 17.5 cm2 [facility] Work Phone: RV Area systolic 11.9 cm2 [facility] Work Phone: RV basal diam 4.56 cm [facility] [place] Work Phone: RV Fractional area change 32 % [facility] Work Phone: RV long diam 6.91 cm [facility] Work Phone: RV mid diam 2.91 cm [facility] Work Phone: RV S' 12.81 cm/s [facility] Work Phone: RVOT peak gradient 5 mmHg [facility] Work Phone: RVOT peak fidel 1.07 m/s [facility] Work Phone: [phone] RVOT peak VTI 20.1 cm [facility] Work Phone: [phone] Sinus 2.97 cm [facility] Work Phone: [phone] STJ 2.58 cm [facility] Work Phone: [phone] Stroke Volume 68 cm/mL [facility] Work Phone: [phone] Stroke volume index 36 [facility] Work Phone: [phone] TAPSE 2.08 cm [facility] Work Phone: [phone] TR pk grad 26 mmHg [facility] Work Phone: [phone] TR pk fidel 2.53 m/s [facility] Work Phone: [phone] [facility] Work Phone: Cardiac echo study Procedure on 08-05-2024 [facility] Radiology Study observation (narrative) [facility] ECHOCARDIOGRAMon 08-05-2024 Echocardiography ? No prior study [...] not included. [facility] Facility [facility] Patient Information Patient Name Lindsay Acuna Legal [...] Role Read Date Ezequiel Figueroa DO Echo [place] 08/05/2024 Left Heart Measurements LV - Systole [...] long di (more content not included)... Normal [facility] GLUCOSE POCon 08-05-2024 Glucose [Mass/Vol] 228 mg/dL High 70 - 179 mg/dL [facility] Interpretation and review of laboratory results Abnormal [facility] POC Sample Type CAPBL [facility] IONIZED CALCIUM, WHOLE BLOOD on 08-05-2024 ICA 4.72 mg/dL Normal 4.60-5.30 [facility] Comment on above: Performed By: #### S URGP #### [facility] (DEFAULT) [address] [place] [address] ICA 4.69 mg/dL Normal 4.60-5.30 [facility] Comment on above: Performed By: #### S URGP #### [facility] (DEFAULT) [address] [place] [address] IONIZED CALCIUM, WHOLE BLOOD Ordered By: Jairo Layton on 08-05-2024 Calcium.ionized (Bld) [Moles/Vol] 4.69 mg/dL 4.60 - 5.30 mg/dL [facility] Interpretation and review of laboratory results Normal [facility] MAGNESIUMon 08-05-2024 Magnesium [Mass/Vol] 2.4 mg/dL Normal 1.6-2.6 [facility] Comment on above: Performed By: #### S URGP #### [facility] (DEFAULT) [address] [place] [address] Magnesium [Mass/Vol] 1.8 mg/dL 1.6 - 2 .6 mg/dL [facility] Magnesium [Mass/Vol] 1.8 mg/dL Normal 1.6-2.6 [facility] Comment on above: Performed By: #### X M #### [facility] (DEFAULT) [address] [place] [address] No Panel Informationon 08-05 Interpretation and review of laboratory results Normal [facility] PHOSPHATE, INORGANICon 08-05 Phosphorous 3.2 mg/dL Normal 2.2-4.6 [facility] Comment on above: Performed By: #### S URGP #### [facility] (DEFAULT) [address] [place] [address] 71965 Phosphate [Mass/Vol] 2.7 mg/dL 2.2 - 4 .6 mg/dL [facility] Phosphorous 2.7 mg/dL Normal 2.2-4.6 [facility] Comment on above: Performed By: #### X M #### [facility] (DEFAULT) [address] [place] [address]154 VON [place]ILLE[place] FACTOR AGOrde red By: Madhavi Mcelroy on 08-05-2024 Interpretation and review of laboratory results Abnormal [facility] vWf Ag actual/normal IA (PPP) [Relative mass conc] 230 % High 50 - 180 % [facility] CBC,PLATELETSon 08-04-2024 Erythrocyte distribution width [...] [facility] [place] RBC (Bld) [#/Vol] 4.43 10*6/uL [facility] WBC (Bld) [#/Vol] 11.41 10*3/uL High 3.99 - 11.19 K/uL [facility] Hematocrit (Bld) [Volume fraction] 40.8 % Normal 34.9-44.3 [facility] Comment on above: Performed By: #### [facility] #### [facility] [place] (DEFAULT) [address] [place] [address] 98532 Hemoglobin (Bld) [Mass/Vol] 12.7 g/dL Normal 11.4-15.2 [facility] Comment on above: Performed By: #### [facility] #### [facility] (DEFAULT) [address] [place] [address] 42194 MCV (RBC) [Entitic vol] 92.1 fL Normal 79.6-97.7 [facility] Comment on above: Performed By: #### H EMOGC #### [facility] (DEFAULT) [address] [place] [address] 72803 Mean Cell Hgb 28.7 pg Normal 25.9-33.9 [facility] Comment on above: Performed By: #### H EMOGC #### [facility] (DEFAULT) [address] [place] [address] 26365 Mean Cell Hgb Conc 31.1 g/dL Low 31.4-35.9 [facility] Comment on above: Performed By: #### H EMOGC #### [facility] [place] (DEFAULT) [address] [place] [address] 87572 Platelet mean volume (Bld) [Entitic vol] 10.8 fL Normal 8.5-12.2 [facility] Comment on above: Performed By: #### H EMOGC #### [facility] [place] (DEFAULT) [address] [place] [address] 39023 Platelets (Bld) [#/Vol] 228 10*3/uL Normal 150-393 [facility] Comment on above: Performed By: #### H EMOGC #### [facility] [place] (DEFAULT) [address] [place] [address] 01804 RBC (Bld) [#/Vol] 4.43 10*6/uL Normal 3.91-5.04 [facility] Comment on above: Performed By: #### H EMOGC #### [facility] (DEFAULT) [address] [place] [address] 98659 RBC Distribution 13.7 % Normal 10.8-14.9 [facility] Comment on above: Performed By: #### H EMOGC #### [facility] (DEFAULT) [address] [place] [address] 20354 WBC (Bld) [#/Vol] 11.41 10*3/uL High 3.99-11.19 [facility] Comment on above: Performed By: #### H EMO #### [facility] [place] (DEFAULT) [address] [place] [id number] CHEM 7 (LYTES,BUN,CREA,GLUC) Ordered By: Lizette Canseco [...] [place] Urea nitrogen/Creatinine [Mass ratio] 18 mg/mg [facility] CHEM 7 (LYTES,BUN,CREA,GLUC) on 08-04-2024 Anion gap [Moles/Vol] 16 mmol/L Normal 7-17 [facility] Comment on above: Performed By: #### S URGP #### [facility] [place] (DEFAULT) [address] [place] [address] Chloride [Moles/Vol] 109 mmol/L High 98-108 [facility] Comment on above: Performed By: #### S URGP #### [facility] [place] (DEFAULT) [address] [place] [address] 87579 CO2 [Moles/Vol] 24 mmol/L Normal 21-31 [facility] Comment on above: Performed By: #### S URGP #### [facility] (DEFAULT) [address] [place] [address] 50247 Creatinine [Mass/Vol] 1.47 mg/dL High 0.50-1.20 [facility] Comment on above: Performed By: #### S URGP #### [facility] (DEFAULT) [address] [place] [address] 96258 GFR/1.73 sq M.predicted among non-blacks MDRD (S/P/Bld) [Vol rate/Area] 36 mL/min/{1.73_m2} Low >=60 [facility] Comment on above: Result Comment: Repo rted eGFR is based on the CKD-EPI 2020 equation using creatinine, age, and sex. Performed By: #### S URGP #### [facility] (DEFAULT) [address] [place] [address] 86345 Glucose [Mass/Vol] 181 mg/dL High Nonfastin -179 mg/dL; Fastin-99 [facility] Comment on above: Performed By: #### S URGP #### [facility] (DEFAULT) [address] [place] [address] 60728 Osmolality [Osmolality] 312 mosm/kg High 278-305 [facility] Comment on above: Performed By: #### S URGP #### [facility] (DEFAULT) [address] [place] [address] 12825 Potassium [Moles/Vol] 4.0 mmol/L Normal 3.5-5.0 [facility] Comment on above: Performed By: #### S URGP #### [facility] (DEFAULT) [address] [place] [address] 03435 Sodium [Moles/Vol] 145 mmol/L Normal 135-145 [facility] Comment on above: Performed By: #### S URGP #### [facility] (DEFAULT) [address] [place] [address] Urea nitrogen [Mass/Vol] 26 mg/dL High 7-25 [facility] Comment on above: Performed By: #### S URGP #### [facility] (DEFAULT) [address] [place] [address] Urea nitrogen/Creatinine [Mass ratio] 18 mg/mg Normal [facility] Comment on above: Performed By: #### S URGP #### [facility] (DEFAULT) [address] [place] [address] CT HEAD WITHOUT CONTRASTon 0 08-04-2024 CT [...] sinuses are clear. IMPRESSION: Stable exam. Normal [facility] CT Head WO contraston 2024 [...] [facility] [place] POC Sample Type [facility] Glucose [Mass/Vol] 235 mg/dL High 70 - 179 mg/dL [facility] Interpretation and review of laboratory results Abnormal [facility] POC Sample [facility] Glucose [Mass/Vol] 215 mg/dL High 70 - 179 mg/dL [facility] [place] Interpretation and review of laboratory results Abnormal [facility] POC Sample Type CAPBL [facility] Glucose [Mass/Vol] 178 mg/dL 70 - 179 mg/dL [facility] Glucose [Mass/Vol] 157 mg/dL 70 [...] Interpretation and review of laboratory results Normal [facility] IONIZED CALCIUM, WHOLE BLOOD on 08-04-2024 ICA 4.80 mg/dL Normal 4.60-5.30 [facility] Comment on above: Performed By: #### T YPEC #### [facility] [place] (DEFAULT) [address] [place] [address] 42700 MAGNESIUMon 08-04-2024 Magnesium [Mass/Vol] 1.9 mg/dL 1.6 - 2 .6 mg/dL [facility] [place] Magnesium [Mass/Vol] 1.9 mg/dL Normal 1.6-2.6 [facility] Comment on above: Performed By: #### X M #### [facility] [place] (DEFAULT) [address] [place] [address] 04139 No Panel Informationon 08-04 POC Sample Type CAPBL [facility] Interpretation and review of laboratory results Abnormal [facility] Interpretation and review of laboratory results Normal [facility] PHOSPHATE, INORGANICon 08-04 Phosphate [Mass/Vol] 2.8 mg/dL 2.2 - 4 .6 mg/dL [facility] Phosphorous 2.8 mg/dL Normal 2.2-4.6 [facility] Comment on above: Performed By: #### X M #### [facility] [place] (DEFAULT) [address] [address] SODIUMon 08-04-2024 Interpretation and review of laboratory results Normal [facility] Sodium [Moles/Vol] 142 mmol/L 135 - 145 mmol/L [facility] Sodium [Moles/Vol] 142 mmol/L Normal 135-145 [facility] Comment on above: Order Comment: While on 3% Hypertonic Saline. Performed By: #### S URGP #### [facility] [place] (DEFAULT) [address] [place] [address] 25887 Interpretation and review of laboratory results Normal [facility] Sodium [Moles/Vol] 141 mmol/L 135 - 145 mmol/L [facility] Sodium [Moles/Vol] 141 mmol/L Normal 135-145 [facility] Comment on above: Order Comment: 2 Bot [...] [facility] [place] (DEFAULT) [address] [place] [address] 98860 Interpretation and review of laboratory results Normal [facility] Sodium [Moles/Vol] 143 mmol/L 135 - 145 mmol/L [facility] Sodium [Moles/Vol] 143 mmol/L Normal 135-145 [facility] Comment on above: Order Comment: While on 3% Hypertonic Saline. Performed By: #### [facility] #### [facility] (DEFAULT) [address] [place] [address] 83321 ABORH TYPE RECONFIRMATIONon 08-03-2024 ABO/RH(D) TYPE Negative [facility] ABO/RH(D) TYPE Negative Normal [facility] Comment on above: Performed By: #### T YPEC #### [facility] [place] (DEFAULT) [address] [place] [address] 95739 CBC,PLATELETSon 08-03-2024 Erythrocyte distribution width (RBC) [Ratio] [...] [facility] [place] RBC (Bld) [#/Vol] 4.63 10*6/uL [facility] WBC (Bld) [#/Vol] 8.43 10*3/uL 3.99 - 11.19 K/uL [facility] Hematocrit (Bld) [Volume fraction] 42.8 % Normal 34.9-44.3 [facility] Comment on above: Performed By: #### X M #### [facility] [place] (DEFAULT) [address] [place] [address] 34524 Hemoglobin (Bld) [Mass/Vol] 13.5 g/dL Normal 11.4-15.2 [facility] Comment on above: Performed By: #### X M #### [facility] [place] (DEFAULT) [address] [place] [address] 96056 MCV (RBC) [Entitic vol] 92.4 fL Normal 79.6-97.7 O [facility] Comment on above: Performed By: #### X M #### [facility] [place] (DEFAULT) [address] [place] [address] 95821 Mean Cell Hgb 29.2 pg Normal 25.9-33.9 [facility] Comment on above: Performed By: #### X M #### [facility] [place] (DEFAULT) [address] [place] [address] 68903 Mean Cell Hgb Conc 31.5 g/dL Normal 31.4-35.9 [facility] Comment on above: Performed By: #### X M #### [facility] [place] (DEFAULT) [address] [place] [address] 15210 Platelet mean volume (Bld) [Entitic vol] 11.2 fL Normal 8.5-12.2 [facility] Comment on above: Performed By: #### X M #### [facility] [place] (DEFAULT) [address] [place] [address] 02570 Platelets (Bld) [#/Vol] 227 10*3/uL Normal 150-393 [facility] Comment on above: Performed By: #### X M #### [facility] [place] (DEFAULT) [address] [place] [address] 03754 RBC (Bld) [#/Vol] 4.63 10*6/uL Normal 3.91-5.04 [facility] Comment on above: Performed By: #### X M #### [facility] [place] (DEFAULT) [address] [place] [address] 34950 RBC Distribution 13.2 % Normal 10.8-14.9 [facility] Comment on above: Performed By: #### X M #### [facility] [place] (DEFAULT) [address] [place] [address] 41854 WBC (Bld) [#/Vol] 8.43 10*3/uL Normal 3.99-11.19 [facility] Comment on above: Performed By: #### X M #### [facility] [place] (DEFAULT) [address] [place] [address] 41162 CHEM 7 (LYTES,BUN,CREA,GLUC) on 08-03-2024 Anion gap [...] Anion gap [Moles/Vol] 16 mmol/L Normal 7-17 [facility] Comment on above: Performed By: #### S URGP #### [facility] (DEFAULT) [address] [place] [address] 42233 Chloride [Moles/Vol] 103 mmol/L Normal 98-108 [facility] Comment on above: Performed By: #### S URGP #### [facility] [place] (DEFAULT) [address] [place] [address] 01848 CO2 [Moles/Vol] 23 mmol/L Normal 21-31 [facility] Comment on above: Performed By: #### S URGP #### [facility] [place] (DEFAULT) [address] [place] [address] 37352 Creatinine [Mass/Vol] 1.35 mg/dL High 0.50-1.20 [facility] Comment on above: Performed By: #### S URGP #### [facility] [place] (DEFAULT) [address] [place] [address] 65752 GFR/1.73 sq M.predicted among non-blacks MDRD (S/P/Bld) [Vol rate/Area] 40 mL/min/{1.73_m2} Low >=60 [facility] Comment on above: Result Comment: Repo rted eGFR is based on the CKD-EPI 2020 equation using creatinine, age, and sex. Performed By: #### S URGP #### [facility] (DEFAULT) [address] [place] [address] 85414 Glucose [Mass/Vol] 151 mg/dL Normal Nonfastin -179 mg/dL; Fastin-99 [facility] Comment on above: Performed By: #### S URGP #### [facility] (DEFAULT) [address] [place] [address] 47427 Osmolality [Osmolality] 295 mosm/kg Normal 278-305 [facility] Comment on above: Performed By: #### S URGP #### [facility] (DEFAULT) [address] [place] [address] 15572 Potassium [Moles/Vol] 4.3 mmol/L Normal 3.5-5.0 [facility] Comment on above: Result Comment: Spec imen slightly hemolyzed. Potassium results may be falsey elevated by more than 0.5 mmol/L. Consider recollection. Performed By: #### S URGP #### [facility] (DEFAULT) [address] [place] [address] 74479 Sodium [Moles/Vol] 138 mmol/L Normal 135-145 [facility] Comment on above: Performed By: #### S URGP #### [facility] (DEFAULT) [address] [place] [address] 65856 Urea nitrogen [Mass/Vol] 18 mg/dL Normal 7-25 [facility] Comment on above: Performed By: #### S URGP #### [facility] (DEFAULT) [address] [place] [address] 92507 Urea nitrogen/Creatinine [Mass ratio] 13 mg/mg Normal [facility] Comment on above: Performed By: #### S URGP #### [facility] (DEFAULT) [address] [place] [address] CHEST WITH CONTRAST VASCU LAR TRAUMAon [...] have reviewed and approved this report. Normal [facility] CT Cervical spine WO contras [...] since the MRI from earlier today Normal [facility] CT Head WO contraston 2024 Radiology Study observation (narrative) [facility] RADIOLOGY RADIOLOGY [facility] Radiology Study observation (narrative) [facility] CT ORBITS WITHOUT CONTRASTon 08-03-2024 CT ORBITS [...] basal ganglia hyperdensity concerning for hemorrhage. Normal [facility] CT Orbit WO contraston 08-03 RADIOLOGY RADIOLOGY [facility] CT SPINE CERVICAL WITHOUT CO [...] No evidence of acute fractures identified Normal [facility] EXTRA MICROon 08-03-2024 [facility] GLUCOSE POCon 08-03-2024 Glucose [Mass/Vol] 161 mg/dL 70 - 179 mg/dL [facility] POC Sample Type CAPBL [facility] IONIZED CALCIUM, WHOLE BLOOD Ordered By: Alejandra Ness on 08-03-2024 Calcium.ionized (Bld) [Moles/Vol] 4.24 mg/dL Low 4.60 - 5.30 mg/dL [facility] Interpretation and review of laboratory results Abnormal [facility] IONIZED CALCIUM, WHOLE BLOOD on 08-03-2024 ICA 4.24 mg/dL Low 4.60-5.30 [facility] Comment on above: Performed By: #### [facility] #### [facility] [place] (DEFAULT) [address] [place] [address] MAGNESIUMon 08-03-2024 Magnesium [Mass/Vol] 2.1 mg/dL 1.6 - 2 .6 mg/dL [facility] Magnesium [Mass/Vol] 2.1 mg/dL Normal 1.6-2.6 [facility] Comment on above: Performed By: #### S URGP #### [facility] (DEFAULT) [address] [place] [address] MR Brain WO contraston 08-03 RADIOLOGY RADIOLOGY [facility] Radiology Study observation (narrative) [facility] MR Cervical spine WO contras ton 08-03-2024 RADIOLOGY RADIOLOGY [facility] Radiology Study observation (narrative) [facility] MR Cervical spine WO contras tOrdered By: [...] tiny 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 Normal [facility] MRI SPINE CERVICAL WITHOUT C [...] have reviewed and approved this report. Normal [facility] NT-PRO B-TYPE NATRIURETIC PE PTIDEon 08-03-2024 Interpretation and review of laboratory results Abnormal [facility] Natriuretic peptide.B prohormone N-Terminal IA [Mass/Vol] 1115 pg/mL High NINF - 540 pg/mL [facility] No Panel Informationon 08-03 RADIOLOGY RADIOLOGY [facility] [place] Interpretation and review of laboratory results Normal [facility] No Panel InformationOrdered By: Richard Sánchez on 08-03-2024 [facility] Work Phone: PHOSPHATE, INORGANICon 08-03 Phosphate [Mass/Vol] 3.5 mg/dL 2.2 - 4 .6 mg/dL [facility] Phosphorous 3.5 mg/dL Normal 2.2-4.6 [facility] Comment on above: Performed By: #### S URGP #### [facility] [place] (DEFAULT) [address] [place] [address] SCREEN: MRSA/MSSAOrdered By: Gail Collado on 08-03-2024 Interpretation and review of laboratory results Normal [facility] Methicillin Resistant S. Aureus By Pcr Negative Negative [facility] Staphylococcus Aureus By Pcr Negative Negative [facility] SODIUMon 08-03-2024 Interpretation and review of laboratory results Normal [facility] Sodium [Moles/Vol] 139 mmol/L 135 - 145 mmol/L [facility] Sodium [Moles/Vol] 139 mmol/L Normal 135-145 [facility] Comment on above: Order Comment: While on 3% Hypertonic Saline. Performed By: #### N AO ####[facility] (DEFAULT)[address] [place] [address] Interpretation and review of laboratory results Abnormal [facility] Sodium [Moles/Vol] 134 mmol/L Low 135 - 145 mmol/L [facility] Sodium [Moles/Vol] 134 mmol/L Low 135-145 [facility] Comment on above: Order Comment: While on 3% Hypertonic Saline. Performed By: #### H EMOGC #### [facility] [place] (DEFAULT) [address] [place], [place] [address] XR ABDOMEN 1 VIEW PORTABLEon 08-03-2024 XR [...] proximal second portion of the duodenum. Normal [facility] XR Abdomen Single viewon RADIOLOGY RADIOLOGY [facility] Radiology Study observation (narrative) [facility] XR Abdomen Single viewOrdere d By: Huey Gibson on 08-03-2024 [facility] XR ELBOW RIGHT 2 VIEWSon XR ELBOW RIGHT 2 VIEWS EXAM: XR ELBOW RI GHT 2 VIEWS, XR HUMERUS RIGHT 2+ VIEWS, XR WRIST RIGHT 3+ VIEWS, 08/02/2024 23:24 PM (accession [id number]), 08/02/2024 23:24 PM (accession [id number]), 08/02/2024 23:23 PM (accession [id number]) COMPARISON: No prior studies available for comparison. [...] dislocation. IMPRESSION: No acute osseous abnormality. Normal [facility] XR HUMERUS RIGHT 2+ VIEWSon 08-03-2024 XR HUMERUS RIGHT 2+ VIEWS EXAM: XR ELBOW RIGHT 2 VIEWS, XR HUMERUS RIGHT 2+ VIEWS, XR WRIST RIGHT 3+ VIEWS, 08/02/2024 23:24 PM (accession [id number]), 08/02/2024 23:24 PM (accession [id number]), 08/02/2024 23:23 PM (accession [id number]) COMPARISON: No prior studies available for comparison. [...] dislocation. IMPRESSION: No acute osseous abnormality. Normal [facility] XR WRIST RIGHT 3+ VIEWSon XR WRIST RIGHT 3+ VIEWS EXAM: XR ELBOW R IGHT 2 VIEWS, XR HUMERUS RIGHT 2+ VIEWS, XR WRIST RIGHT 3+ VIEWS, 08/02/2024 23:24 PM (accession [id number]), 08/02/2024 23:24 PM (accession [id number]), 08/02/2024 23:23 PM (accession [id number]) COMPARISON: No prior studies available for comparison. [...] dislocation. IMPRESSION: No acute osseous abnormality. Normal [facility] 12 Lead EKGon 08-02-2024 12 Lead EKG [facility] [address] [place] [address] 12 Lead EKG 08/02/24 1309 MR#: [id number] Acct: [id number] Name: LINDSAY ACUNA Rep #: [id number] : 1945 78 From: Mj Benavides MD [...] Confirmed by MAKAYLA LAWSON, MJ ([id number]), book editor NAIMA BEARDEN ([id number]) on 08/05/2024 6:47:07 AM Referred By: Confirmed By: MJ BENAVIDES MD 08/05/24 0647 Date Mj Benavides MD CC: Dr. Pieter Morgan MD; Dr. Kameron Caruso MD Signed Normal [facility] Absolute lymphocyte countOrd ered By: Pieter Morgan on 08-02-2024 Lymphocytes Auto (Unsp spec) [#/Vol] 1.56 10*3/uL 0.83-4.51 [facility] Absolute neutrophil countOrd ered By: Pieter Morgan on 08-02-2024 Neutrophils (Bld) [#/Vol] 6.2 10*3/uL 2.0-7.7 [facility] Activated partial thrombopla stin time (aPTT) in platelet poor plasma by coagulation aOrdered By: Pieter Morgan on 08-02-2024 aPTT Coag (PPP) [Time] 28.4 s 24.1-36.2 [facility] Anion gap in Serum or Plasma Ordered By: Pieter Morgan on 08-02-2024 Anion gap [Moles/Vol] 12 mmol/L 5-15 [facility] Automated lymphocyte count a s percentage of total leukocytesOrdered By: Pieter Morgan on 08-02-2024 Lymphocytes/100 WBC Auto (Unsp spec) 17.9 % Low [facility] BUN/creatinine ratioOrdered By: Pieter Morgan on 08-02-2024 Urea nitrogen/Creatinine [Mass ratio] 11.6 mg/mg 03-03 [facility] Basic Metabolic Profile (BMP )on 08-02-2024 BUN/CRE 11.6 RATIO Normal 03-03 [facility] Comment on above: Performed By: #### L 300.4310, L501.4021, L300.3900, L500.2500, L100.0100 #### [facility] Laboratory [address] [place], [address] Calcium [Mass/Vol] 9.0 mg/dL Normal 7.6-11.0 [facility] Comment on above: Performed By: #### L 300.4310, L501.4021, L300.3900, L500.2500, L100.0100 #### [facility] Laboratory [address] [place], [address] Chloride [Moles/Vol] 98 mmol/L Normal 98-108 [facility] Comment on above: Performed By: #### L 300.4310, L501.4021, L300.3900, L500.2500, L100.0100 #### [facility] Laboratory [address] [place], [address] CO2 [Moles/Vol] 22.0 mmol/L Normal 21.0-32.0 [facility] Comment on above: Performed By: #### L 300.4310, L501.4021, L300.3900, L500.2500, L100.0100 #### [facility] Laboratory [address] [place], [address] Creatinine [Mass/Vol] 1.74 mg/dL High 0.70-1.20 [facility] Comment on above: Performed By: #### L 300.4310, L501.4021, L300.3900, L500.2500, L100.0100 #### [facility] Laboratory [address] [place], [address] ECRCL 27.14 ml/min Low 50-250 [facility] Comment on above: Performed By: #### L 300.4310, L501.4021, L300.3900, L500.2500, L100.0100 #### [facility] Laboratory [address] [place], [address] GAP 12 Normal 5-15 [facility] Comment on above: Performed By: #### L 300.4310, L501.4021, L300.3900, L500.2500, L100.0100 #### [facility] Laboratory [address] [place], [address] GFR/1.73 sq M.predicted among non-blacks MDRD (S/P/Bld) [Vol rate/Area] 29 mL/min/{1.73_m2} Low >60 [facility] Comment on above: Result Comment: mL/m in/1.73m2 CKD-EPI Creatinine Equation (2020) Performed By: #### L 300.4310, L501.4021, L300.3900, L500.2500, L100.0100 #### [facility] Laboratory [address] [place], [address] Glucose [Mass/Vol] 235 mg/dL High 70-99 [facility] Comment on above: Performed By: #### L 300.4310, L501.4021, L300.3900, L500.2500, L100.0100 #### [facility] Laboratory [address] [place], [address] Potassium [Moles/Vol] 4.2 mmol/L Normal 3.3-5.1 [facility] Comment on above: Performed By: #### L 300.4310, L501.4021, L300.3900, L500.2500, L100.0100 #### [facility] Laboratory [address] [place], [address] Sodium [Moles/Vol] 132 mmol/L Low 133-145 [facility] Comment on above: Performed By: #### L 300.4310, L501.4021, L300.3900, L500.2500, L100.0100 #### [facility] Laboratory [address] [place], [address] Urea nitrogen [Mass/Vol] 20 mg/dL High 4-19 [facility] Comment on above: Performed By: #### L 300.4310, L501.4021, L300.3900, L500.2500, L100.0100 #### [facility] Laboratory [address] [place], [address] Basophil percentageOrdered B y: Pieter Morgan on 08-02-2024 Basophils/100 WBC (Bld) 0.5 % 0-1 [facility] CBC W/Diff, Automatedon 07-14 Absolute Lymph 1.56 X10 3/uL Normal 0.83-4.51 [facility] Comment on above: Performed By: #### L 300.4310, L501.4021, L300.3900, L500.2500, L100.0100 #### [facility] Laboratory [address] [place], [address] Absolute Neut 6.2 X10 3/uL Normal 2.0-7.7 [facility] Comment on above: Performed By: #### L 300.4310, L501.4021, L300.3900, L500.2500, L100.0100 #### [facility] Laboratory [address] [place], [address] Basophils/100 WBC (Bld) 0.5 % Normal 0-1 [facility] Comment on above: Performed By: #### L 300.4310, L501.4021, L300.3900, L500.2500, L100.0100 #### [facility] Laboratory [address] [place], [address] Eosinophils/100 WBC (Bld) 1.0 % Normal 0-5 [facility] Comment on above: Performed By: #### L 300.4310, L501.4021, L300.3900, L500.2500, L100.0100 #### [facility] Laboratory [address] [place], [address] Erythrocyte distribution width (RBC) [Ratio] 13.3 % Normal 11.6-14.6 [facility] Comment on above: Performed By: #### L 300.4310, L501.4021, L300.3900, L500.2500, L100.0100 #### [facility] Laboratory [address] [place], [address] Hematocrit (Bld) [Volume fraction] 42.0 % Normal 37-47 [facility] Comment on above: Performed By: #### L 300.4310, L501.4021, L300.3900, L500.2500, L100.0100 #### [facility] Laboratory [address] [place], [address] Hemoglobin (Bld) [Mass/Vol] 13.8 g/dL Normal 12.0-15.0 [facility] Comment on above: Performed By: #### L 300.4310, L501.4021, L300.3900, L500.2500, L100.0100 #### [facility] Laboratory [address] [place], [address] IG% 0.300 Normal 0.0-0.9 [facility] Comment on above: Result Comment: IG% - Immature Granulocytes (promyelocytes, myelocytes and metamyelocytes) > 1% indicates that a LEFT SHIFT is Present. Performed By: #### L 300.4310, L501.4021, L300.3900, L500.2500, L100.0100 #### [facility] Laboratory [address] [place], [address] Lymphocytes/100 WBC (Bld) 17.9 % Low 19-41 [facility] Comment on above: Performed By: #### L 300.4310, L501.4021, L300.3900, L500.2500, L100.0100 #### [facility] Laboratory [address] [place], [address] MCH (RBC) [Entitic mass] 30.3 pg Normal 27.0-32.0 [facility] Comment on above: Performed By: #### L 300.4310, L501.4021, L300.3900, L500.2500, L100.0100 #### [facility] Laboratory [address] [place], [address] MCHC (RBC) [Mass/Vol] 32.9 g/dL Normal 32-36 [facility] Comment on above: Performed By: #### L 300.4310, L501.4021, L300.3900, L500.2500, L100.0100 #### [facility] Laboratory [address] [place], [address] MCV (RBC) [Entitic vol] 92.1 fL Normal 81-99 [facility] Comment on above: Performed By: #### L 300.4310, L501.4021, L300.3900, L500.2500, L100.0100 #### [facility] Laboratory [address] [place], [address] Monocytes/100 WBC (Bld) 8.9 % Normal 0-10 [facility] Comment on above: Performed By: #### L 300.4310, L501.4021, L300.3900, L500.2500, L100.0100 #### [facility] Laboratory [address] [place], [address] Neutrophils/100 WBC (Bld) 71.4 % High 47-70 [facility] Comment on above: Performed By: #### L 300.4310, L501.4021, L300.3900, L500.2500, L100.0100 #### [facility] Laboratory [address] [place], [address] Nucleated RBC (Bld) [#/Vol] 0 10*3/uL Normal 0-5 [facility] Comment on above: Performed By: #### L 300.4310, L501.4021, L300.3900, L500.2500, L100.0100 #### [facility] Laboratory [address] [place], [address] Platelet mean volume (Bld) [Entitic vol] 10.7 fL Normal 6.2-12.0 [facility] Comment on above: Performed By: #### L 300.4310, L501.4021, L300.3900, L500.2500, L100.0100 #### [facility] Laboratory [address] [place], [address] Platelets (Bld) [#/Vol] 214 10*3/uL Normal 150-450 [facility] Comment on above: Performed By: #### L 300.4310, L501.4021, L300.3900, L500.2500, L100.0100 #### [facility] Laboratory [address] [place], [address] RBC (Bld) [#/Vol] 4.56 10*6/uL Normal 4.2-5.4 [facility] Comment on above: Performed By: #### L 300.4310, L501.4021, L300.3900, L500.2500, L100.0100 #### [facility] Laboratory [address] [place], [address] RDW SD 45.3 fl High 35.1-43.9 [facility] Comment on above: Performed By: #### L 300.4310, L501.4021, L300.3900, L500.2500, L100.0100 #### [facility] Laboratory [address] [place], [address] WBC (Bld) [#/Vol] 8.7 10*3/uL Normal 4.4-11.0 [facility] Comment on above: Performed By: #### L 300.4310, L501.4021, L300.3900, L500.2500, L100.0100 #### [facility] [address] [facility] [place], [address] CBC,PLATELETSon 08-02-2024 Erythrocyte distribution width (RBC) [Ratio] [...] [facility] [place] RBC (Bld) [#/Vol] 4.76 10*6/uL [facility] WBC (Bld) [#/Vol] 8.16 10*3/uL 3.99 - 11.19 K/uL [facility] Hematocrit (Bld) [Volume fraction] 43.8 % Normal 34.9-44.3 [facility] Comment on above: Performed By: #### B LDCULT #### [facility] (DEFAULT) [address] [place] [address] Hemoglobin (Bld) [Mass/Vol] 14.0 g/dL Normal 11.4-15.2 [facility] Comment on above: Performed By: #### B LDCULT #### [facility] (DEFAULT) [address] [place] [address] MCV (RBC) [Entitic vol] 92.0 fL Normal 79.6-97.7 [facility] Comment on above: Performed By: #### B LDCULT #### [facility] (DEFAULT) [address] [place] [address] Mean Cell Hgb 29.4 pg Normal 25.9-33.9 [facility] Comment on above: Performed By: #### B LDCULT #### [facility] (DEFAULT) [address] [place] [address] Mean Cell Hgb Conc 32.0 g/dL Normal 31.4-35.9 [facility] Comment on above: Performed By: #### B LDCULT #### [facility] (DEFAULT) [address] [place] [address] Platelet mean volume (Bld) [Entitic vol] 10.8 fL Normal 8.5-12.2 [facility] Comment on above: Performed By: #### B LDCULT #### [facility] (DEFAULT) [address] [place] [address] Platelets (Bld) [#/Vol] 245 10*3/uL Normal 150-393 [facility] Comment on above: Performed By: #### B LDCULT #### [facility] (DEFAULT) [address] [place] [address] RBC (Bld) [#/Vol] 4.76 10*6/uL Normal 3.91-5.04 [facility] Comment on above: Performed By: #### B LDCULT #### [facility] (DEFAULT) [address] [place] [address] RBC Distribution 13.3 % Normal 10.8-14.9 [facility] Comment on above: Performed By: #### B LDCULT #### [facility] (DEFAULT) [address] [place] [address] WBC (Bld) [#/Vol] 8.16 10*3/uL Normal 3.99-11.19 [facility] Comment on above: Performed By: #### B LDCULT #### [facility] (DEFAULT) [address] [place] [address] CHEM 7 (LYTES,BUN,CREA,GLUC) on 08-02-2024 Anion gap [...] [facility] #### [facility] (DEFAULT) [address] [place] [address] Chloride [Moles/Vol] 105 mmol/L Normal 98-108 [facility] Comment on above: Performed By: #### H EMO #### [facility] (DEFAULT) [address] [place] [address] CO2 [Moles/Vol] 22 mmol/L Normal 21-31 [facility] Comment on above: Performed By: #### [facility] #### [facility] (DEFAULT) [address] [place] [address] Creatinine [Mass/Vol] 1.37 mg/dL High 0.50-1.20 [facility] Comment on above: Performed By: #### [facility] #### [facility] (DEFAULT) [address] [place] [address] GFR/1.73 sq M.predicted among non-blacks MDRD (S/P/Bld) [Vol rate/Area] 39 mL/min/{1.73_m2} Low >=60 [facility] Comment on above: Result Comment: Repo rted eGFR is based on the CKD-EPI 2020 equation using creatinine, age, and sex. Performed By: #### [facility] #### [facility] (DEFAULT) [address] [place] [address] Glucose [Mass/Vol] 210 mg/dL High Nonfastin -179 mg/dL; Fastin-99 [facility] Comment on above: Performed By: #### H EMOGC #### [facility] (DEFAULT) [address] [place] [address] Osmolality [Osmolality] 299 mosm/kg Normal 278-305 [facility] Comment on above: Performed By: #### H EMO #### [facility] (DEFAULT) [address] [place] [address] Potassium [Moles/Vol] 3.7 mmol/L Normal 3.5-5.0 [facility] Comment on above: Performed By: #### H EMO #### [facility] (DEFAULT) [address] [place] [address] Sodium [Moles/Vol] 139 mmol/L Normal 135-145 [facility] Comment on above: Performed By: #### H EMO #### [facility] (DEFAULT) [address] [place] [address] Urea nitrogen [Mass/Vol] 18 mg/dL Normal 7-25 [facility] Comment on above: Performed By: #### H EMO #### [facility] (DEFAULT) [address] [place] [address] Urea nitrogen/Creatinine [Mass ratio] 13 mg/mg Normal [facility] Comment on above: Performed By: #### H EMO #### [facility] (DEFAULT) [address] [place] [address] ABDOMEN/PELVIS WITH CONTR AST VASCULAR TRAUMAon [...] grade: None. Kidney trauma grade: None. Normal [facility] CT Abdomen and Pelvis W cont rast Seth 08-02-2024 RADIOLOGY RADIOLOGY [facility] CT Abdomen and Pelvis W cont rast IVOrdered By: Edson Head on 08-02-2024 [facility] Work Phone: CT Cervical spine WO contras ton 08-02-2024 Radiology Study observation (narrative) [facility] CT Orbit WO contraston 08-02 Radiology Study observation (narrative) [facility] Carbon dioxide, total [Moles /volume] in Central venous bloodOrdered By: Pieter Morgan on 08-02-2024 CO2 [Moles/Vol] 22.0 mmol/L 21.0-32.0 [facility] Chloride assayOrdered By: Racheal Morgan on 08-02-2024 Chloride [Moles/Vol] 98 mmol/L 98-108 [facility] Emergency Department Summary on 08-02-2024 Emergency Department Summary [facility] Medical Records Department [address] [place] [address] Emergency Department Summary 08/02/24 MR#: [id number] Acct: [id number] Name: LINDSAY ACUNA NOAH Rep #: [id number] : [id number] From: Pieter Morgan MD [...] the EMR. states they returned home from [facility] about 1.5-2 weeks ago, and they both had colds. He is better, but she is "on round 2." [facility] Medical History Paroxysmal atrial fibrillation with [...] [facility] Eosinophil percentageOrdered By: Pieter Morgan on 08-02-2024 Eosinophils/100 WBC (Bld) 1.0 % 0-5 [facility] Erythrocyte distribution wid th ratioOrdered By: Pieter Morgan on 08-02-2024 Erythrocyte distribution width (RBC) [Ratio] 13.3 % 11.6-14.6 [facility] Erythrocyte distribution wid th standard deviationOrdered By: Pieter Morgan on 08-02-2024 Erythrocyte distribution width (RBC) [Entitic vol] 45.3 fL High 35.1-43.9 [facility] Erythrocyte distribution width (RBC) [Ratio] 45.3 fl High 35.1-43.9 [facility] Estimation of creatinine mackenzie aranceOrdered By: Pieter Morgan on 08-02-2024 Estimated Creatinine Clearance Calc 27.14 ml/min Low 50-250 [facility] GFR/1.73 sq M.predicted lana g non-blacks MDRD (S/P/Bld) [Vol rate/Area]Ordered By: Pieter Morgan on 08-02-2024 Estimated GFR (MDRD) Non-Af Amer 29 Low >60 [facility] Comment on above: mL/min/1.73m2 CKD-EP I Creatinine Equation (2020) Glomerular filtration rate ( GFR) estimation/1.73 sq m using serum, plasma, or whole bOrdered By: Pieter Morgan on 08-02-2024 GFR/1.73 sq M.predicted among non-blacks MDRD (S/P/Bld) [Vol rate/Area] 29 mL/min/{1.73_m2} Low >60 [facility] Comment on above: mL/min/1.73m2 CKD-EP I Creatinine Equation (2020) HEMOGLOBIN A1Con 08-02-2024 Average glucose Estimated from glycated hemoglobin (Bld) [Mass/Vol] 177 mg/dL [facility] HbA1c (Bld) [Mass fraction] 7.8 % High 4.7 - 5.6 % [facility] Interpretation and review of laboratory results Abnormal [facility] Glucose [Mass/Vol] 177 mg/dL Normal [facility] Comment on above: Performed By: #### H EMO #### [facility] (DEFAULT) [address] [place] [address] Hemoglobin A1C HPLC 7.8 % High 4.7-5.6 [facility] Comment on above: Performed By: #### H EMO #### [facility] (DEFAULT) [address] [place] [address] HEPATIC FUNCTION PANELon Albumin [Mass/Vol] 3.5 g/dL [...] [facility] Bilirubin.direct [Mass/Vol] 0.1 mg/dL [facility] mg/dL [facility] Protein [Mass/Vol] 6.3 g/dL Low 6.4 - 8.3 g/dL [facility] Albumin [Mass/Vol] 3.5 g/dL Normal 3.5-5.0 [facility] Comment on above: Performed By: #### [facility] #### [facility] (DEFAULT) [address] [place] [address] ALP [Catalytic activity/Vol] 117 U/L Normal 32-126 [facility] Comment on above: Performed By: #### H EMO #### [facility] (DEFAULT) [address] [place] [address] ALT [Catalytic activity/Vol] 10 U/L Normal 9-48 [facility] Comment on above: Performed By: #### H EMO #### [facility] (DEFAULT) [address] [place] [address] AST [Catalytic activity/Vol] 17 U/L Normal 10-39 [facility] Comment on above: Performed By: #### H EMO #### [facility] (DEFAULT) [address] [place] [address] Bilirubin [Mass/Vol] 0.6 mg/dL Normal <1.5 [facility] Comment on above: Performed By: #### H EMOGC #### [facility] (DEFAULT) [address] [place] [address] Bilirubin.indirect [Mass/Vol] 0.1 mg/dL Normal <0.3 [facility] Comment on above: Performed By: #### H EMOGC #### [facility] (DEFAULT) [address] [place] [address] Protein [Mass/Vol] 6.3 g/dL Low 6.4-8.3 [facility] Comment on above: Performed By: #### [facility] #### [facility] (DEFAULT) [address] [place] [address] HIGH SENSITIVITY TROPONIN I - SINGLE ORDERon 08-02-2024 Interpretation and review of laboratory results Normal [facility] Troponin I.cardiac High sensitivity method [Mass/Vol] 9 ng/L NINF - 34 ng/L [facility] hs-Troponin I 9 ng/L Normal <34 [facility] Comment on above: Order Comment: [...] [facility] (DEFAULT) [address] [place] [address] Hematocrit Auto (Bld) [Volum e fraction]Ordered By: Pieter Morgan on 08-02-2024 Hematocrit (Bld) [Volume fraction] 42.0 % 37-47 [facility] Hemoglobin measurementOrdere d By: Pieter Cathy on 08-02-2024 Hemoglobin (Bld) [Mass/Vol] 13.8 g/dL 12.0-15.0 [facility] Immature granulocytes/100 WB C Auto (Bld)Ordered By: Pieter Morgan on 08-02-2024 Immature granulocytes/100 WBC (Bld) 0.300 % 0.0-0.9 [facility] Comment on above: IG% - Immature Granu locytes (promyelocytes, myelocytes and metamyelocytes) > 1% indicates that a LEFT SHIFT is Present. Influenza virus A and B and SARS-CoV-2 (COVID-19) and Respiratory syncytial virus RNAOrdered By: Pieter Cathy on 08-02-2024 SARS-CoV-2 (COVID-19) RNA CHUCKY+probe Ql (Unsp spec) [facility] International normalized rat io (INR) calculationOrdered By: Pieter Morgan on 08-02-2024 INR Coag (Bld) [Relative time] 1.1 {INR} [facility] L499.0042on 08-02-2024 Trop T High Sen Normal <=14 [facility] Comment on above: Result Comment: Canc elled via OM: Order cancelled - Patient discharged Performed By: #### L 499.0042 ####[facility] [id number] [place], [address] L499.0043on 08-02-2024 Trop T High Sen Normal <=14 [facility] Comment on above: Result Comment: Canc elled via OM: Order cancelled - Patient discharged Performed By: #### L 499.0043 ####[facility] [id number] [place], [address] L501.4021on 08-02-2024 Trop T High Sen 38 ng/L High <=14 [facility] Comment on above: Performed By: #### L 300.4310, L501.4021, L300.3900, L500.2500, L100.0100 ####[facility] [id number] [place], [place], [id number] LIPID PANEL WITH REFLEX TO M ANAMARIA [...] Calculated LDL Cholesterol 84 mg/dL Normal 0-99 [facility] Comment on above: Result Comment: [<10 0 mg/dL: Optimal] [100-129 mg/dL: Near Optimal] [130-159 mg/dL: Borderline High] [160-189 mg/dL: High] [>189 mg/dL: Very High] Performed By: #### [facility] #### [facility] (DEFAULT) [address] [place] [address] Cholesterol [Mass/Vol] 141 mg/dL Normal <200 [facility] Comment on above: Result Comment: [<20 0 mg/dL: Desirable] [200-239 mg/dL: Borderline High] [>239 mg/dL: High] Performed By: #### [facility] #### [facility] (DEFAULT) [address] [place] [address] Cholesterol in HDL [Mass/Vol] 38 mg/dL Low >=40 [facility] Comment on above: Result Comment: [<40 mg/dL: Low (High Risk)] [>59 mg/dL: High (Low Risk)] Performed By: #### H EMO #### [facility] (DEFAULT) [address] [place] [address] Non HDL Cholesterol 103 mg/dL Normal <130 [facility] Comment on above: Performed By: #### [facility] #### [facility] (DEFAULT) [address] [place] [address] Total Cholesterol/HDL Ratio 3.7 Normal <4.5 [facility] Comment on above: Performed By: #### [facility] #### [facility] (DEFAULT) [address] [place] [address] Triglyceride [Mass/Vol] 96 mg/dL Normal <150 [facility] Comment on above: Result Comment: [<15 0 mg/dL: Desirable] [150-199 mg/dL: Borderline] [200-499 mg/dL: High] [>500 mg/dL: Very High] Performed By: #### H [facility] #### [facility] (DEFAULT) [address] [place] [address] Lymphocytes Auto (Unsp spec) [#/Vol]Ordered By: Pieter Morgan on 08-02-2024 Lymphocytes (Bld) [#/Vol] 1.56 10*3/uL 0.83-4.51 [facility] Lymphocytes/100 WBC Auto (Un sp spec)Ordered By: Pieter Morgan on 08-02-2024 Lymphocytes/100 WBC (Bld) 17.9 % Low 19-41 [facility] M100.678on 08-02-2024 M100.678 Pending SARS-CoV-2 (COVID 19) Negative INFLUENZA A Negative INFLUENZA B Negative RSV PCR Negative Normal [facility] Comment on above: Performed By: #### M 100.678 #### [facility] Laboratory [address] [place], [place], [id number] MAGNESIUMon 08-02-2024 Magnesium [Mass/Vol] 1.2 mg/dL Low 1.6 - 2 .6 mg/dL [facility] Magnesium [Mass/Vol] 1.2 mg/dL Low 1.6-2.6 [facility] Comment on above: Performed By: #### H [facility] #### [facility] (DEFAULT) [address] [place] [address] MCV (mean corpuscular volume ) determinationOrdered By: Pieter Morgan on 08-02-2024 MCV (RBC) [Entitic vol] 92.1 fL 81-99 [facility] Mean corpuscular hemoglobin (MCH) determinationOrdered By: Pieter Morgan on 08-02-2024 MCH (RBC) [Entitic mass] 30.3 pg 27.0-32.0 [facility] Mean corpuscular hemoglobin concentration (MCHC) determinationOrdered By: Pieter Morgan on 08-02-2024 MCHC (RBC) [Mass/Vol] 32.9 g/dL 32-36 [facility] Mean platelet volume determi nationOrdered By: Pieter Morgan on 08-02-2024 Platelet mean volume (Bld) [Entitic vol] 10.7 fL 6.2-12.0 [facility] Monocyte percentageOrdered B y: Pieter Morgan on 08-02-2024 Monocytes/100 WBC (Bld) 8.9 % 0-10 [facility] NT-PRO B-TYPE NATRIURETIC PE PTIDEon 08-02-2024 Natriuretic peptide B (Bld) [Mass/Vol] 1115 pg/mL High <=540 [facility] Comment on above: Performed By: #### H [facility] #### [facility] (DEFAULT) [address] [place] [address] Neutrophil percentageOrdered By: Pieter Morgan on 08-02-2024 Neutrophils/100 WBC (Bld) 71.4 % High 47-70 [facility] No Panel Informationon 08-02 Radiology Study observation (narrative) [facility] Interpretation and review of laboratory results Abnormal [facility] No Panel InformationOrdered By: Pieter Morgan on 08-02-2024 Troponin T High Sensitivity 38 ng/L High <14 [facility] Nucleated red blood cell per centageOrdered By: Pieter Morgan on 08-02-2024 Nucleated RBC/100 WBC (Bld) [Ratio] 0 % 0-5 [facility] PT,INR,PTTon 08-02-2024 aPTT Coag (PPP) [Time] 26.9 s OS [facility] INR Coag (Bld) [Relative time] 1.1 {INR} 0.9 - 1.1 [facility] Interpretation and review of laboratory results Normal [facility] PT Coag (PPP) [Time] 13.9 s [facility] aP[facility] Coag (Bld) [Time] 26.9 s Normal 24.0-34.3 [facility] Comment on above: Performed By: #### P TPTT ####[facility] (DEFAULT)[address] [place] [address] INR Coag (PPP) [Relative time] 1.1 {INR} Normal 0.9-1.1 [facility] Comment on above: Performed By: #### P TPTT ####[facility] (DEFAULT)[address] [place] [address] PT Coag (PPP) [Time] 13.9 s Normal 11.9-14.2 [facility] Comment on above: Performed By: #### P TPTT ####[facility] (DEFAULT)[address] [place] [address] Partial Thromboplast Timeon 08-02-2024 aPTT Coag (Bld) [Time] 28.4 s Normal 24.1-36.2 [facility] Comment on above: Performed By: #### L 300.4310, L501.4021, L300.3900, L500.2500, L100.0100 #### [facility] Laboratory [address] [place], [place], [id number] Platelet countOrdered By: Racheal Morgan on 08-02-2024 Platelets (Bld) [#/Vol] 214 10*3/uL 150-450 [facility] Potassium (Unsp spec) [Mass/ Vol]Ordered By: Pieter Morgan on 08-02-2024 Potassium [Moles/Vol] 4.2 mmol/L 3.3-5.1 [facility] Potassium measurement (mass/ volume)Ordered By: Pieter Morgan on 08-02-2024 Potassium (Unsp spec) [Mass/Vol] 4.2 mmol/L 3.3-5.1 [facility] Prothrombin Time w/INRon INR Coag (PPP) [Relative time] 1.1 {INR} Normal [facility] Comment on above: Performed By: #### L 300.4310, L501.4021, L300.3900, L500.2500, L100.0100 #### [facility] Laboratory [address] [place], [address] PT Coag (PPP) [Time] 14.1 s Normal 11.7-14.9 [facility] Comment on above: Performed By: #### L 300.4310, L501.4021, L300.3900, L500.2500, L100.0100 #### [facility] Laboratory [address] [place], [place], [id number] Prothrombin timeOrdered By: Pieter Morgan on 08-02-2024 PT Coag (PPP) [Time] 14.1 s 11.7-14.9 [facility] RBC Auto (Bld) [#/Vol]Ordere d By: Pieter Cathy on 08-02-2024 RBC (Bld) [#/Vol] 4.56 10*6/uL 4.2-5.4 [facility] SCREEN: MRSA/MSSAon 08-03-19 25 Methicillin Resistant S. Aureus By Pcr Negative Normal Negative [facility] Comment on above: Order Comment: [...] by the Clinical Microbiology Laboratory at [facility]. It has not been cleared or approved by the FDA.The laboratory is regulated under CLIA as qualified to perform high-complexity testing. This test is used for clinical purposes. It should not be regarded as investigational or for research. Performed By: #### T YPEC #### [facility] (DEFAULT) [address] [address] Staphylococcus Aureus By Pcr Negative Normal Negative [facility] Comment on above: Order Comment: [...] by the Clinical Microbiology Laboratory at [facility]. It has not been cleared or approved by the FDA.The laboratory is regulated under CLIA as qualified to perform high-complexity testing. This test is used for clinical purposes. It should not be regarded as investigational or for research. Performed By: #### T YPEC #### [facility] (DEFAULT) [address] [address] STROKE Brain/Head without Co nton 08-02-2024 STROKE Brain/Head without Cont [facility] Imaging Services [address] [place] [address] [id number] STROKE Brain/Head without Cont MR#: [id number] Acct: [id number] Name: LINDSAY ACUNA Rep #: [id number] : 1945 F 78 From: Kameron Cardoso MD PCP: Dr. Kameron Caruso MD Status: REG ER Study: STROKE Brain/Head without Cont Date of Exam: 0 08/02/24 Exam# [id number] Ordering Dr: Pieter Morgan MD EXAM: CT [...] at 1250 hours. Reading Location: [facility] CC: Dr. Pieter Morgan MD; Dr. 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 Kameron Caruso MD Status: REG ER Study: STROKE CTA Head AND Neck W/Con Date of Exam: 0 08/02/24 Exam# [id number] Ordering Dr: Pieter Morgan MD PROCEDURE: STROKE [...] impression: No significant stenosis seen. Reading Location: [place] [address] CC: Dr. Pieter Morgan MD; Dr. 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 Normal [facility] Serum creatinine measurement (mass/volume)Ordered By: Pieter Morgan on 08-02-2024 Creatinine [Mass/Vol] 1.74 mg/dL High 0.70-1.20 [facility] Serum glucose measurement (m ass/volume)Ordered By: Pieter Morgan on 08-02-2024 Glucose [Mass/Vol] 235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 Type: BLOOD SPECIMENOrdering Facility: [facility] Address: [address] [place] [address] Performed By: #### 3 016-3, 02972-4, 84988-7 ####[facility] LABCLIA [id number] [place] [address] [place] ALP [Catalytic activity/Vol] 86 U/L Normal 34-123 [facility] Comment on above: Order Comment: Speci men Type: BLOOD SPECIMENOrdering Facility: [facility] Address: [address] [place] [address] Performed By: #### 3 016-3, 13850-1, 62167-0 ####[facility] LABCLIA [id number] [place] [address] [place] ALT [Catalytic activity/Vol] 13 U/L Normal 7-38 [facility] Comment on above: Order Comment: Speci men Type: BLOOD SPECIMENOrdering Facility: [facility] Address: [address] [place] [address] Performed By: #### 3 016-3, 74379-6, 15492-7 ####[facility] LABCLIA [id number] [place] [address] [place] Anion gap [Moles/Vol] 10 mmol/L Normal 8-15 [facility] Comment on above: Order Comment: Speci men Type: BLOOD SPECIMENOrdering Facility: [facility] Address: [address] [place] [address] Performed By: #### 3 016-3, 22607-3, 55466-9 ####[facility] LABCLIA [id number] [place] [address] [place] AST [Catalytic activity/Vol] 21 U/L Normal 13-35 [facility] Comment on above: Order Comment: Speci men Type: BLOOD SPECIMENOrdering Facility: [facility] Address: [address] [place] [address] Performed By: #### 3 016-3, 29747-0, 82531-9 ####[facility] LABCLIA [id number] [place] [address] [place] Bilirubin [Mass/Vol] 0.5 mg/dL Normal 0.2-1.3 [facility] Comment on above: Order Comment: Speci men Type: BLOOD SPECIMENOrdering Facility: [facility] Address: [address] [place] [address] Performed By: #### 3 016-3, 92396-8, 19361-5 ####[facility] LABCLIA [id number] [place] [address] [place] Calcium [Mass/Vol] 9.7 mg/dL Normal 8.5-10.2 [facility] Comment on above: Order Comment: Speci men Type: BLOOD SPECIMENOrdering Facility: [facility] Address: [address] [place] [address] Performed By: #### 3 016-3, 50178-4, 13954-6 ####[facility] LABCLIA [id number] [place] [id number] [place] Chloride [Moles/Vol] 108 mmol/L High 98-107 [facility] Comment on above: Order Comment: Speci men Type: BLOOD SPECIMENOrdering Facility: [facility] Address: [address] [place] [address] Performed By: #### 3 016-3, 97997-0, 50095-8 ####[facility] LABCLIA [id number] [place] [address] [place] CO2 [Moles/Vol] 23 mmol/L Normal 22-30 [facility] Comment on above: Order Comment: Speci men Type: BLOOD SPECIMENOrdering Facility: [facility] Address: [address] [place] [address] Performed By: #### 3 016-3, 26608-9, 78864-1 ####[facility] LABCLIA [id number] [place] [address] [place] Creatinine [Mass/Vol] 1.37 mg/dL High 0.58-0.96 [facility] Comment on above: Order Comment: Speci men Type: BLOOD SPECIMENOrdering Facility: [facility] Address: [address] [place] [address] Performed By: #### 3 016-3, 34562-2, 14114-2 ####[facility] LABCLIA [id number] [place] [address] [place] Creatinine and Glomerular filtration rate.predicted panel (S/P/Bld) 39 mL/min/1.73m??? Low >=60 [facility] Comment on above: Order Comment: Speci men Type: BLOOD SPECIMENOrdering Facility: [facility] Address: [address] [place] [address] Result Comment: Nancy mated Glomerular Filtration Rate [...] actual GFR. Performed By: #### 3 016-3, 19975-5, 77251-4 ####[facility] LABCLIA [id number] [place] [address] [place] Glucose [Mass/Vol] 77 mg/dL Normal 74-99 [facility] Comment on above: Order Comment: Speci men Type: BLOOD SPECIMENOrdering Facility: [facility] Address: [address] [place] [address] Result Comment: The [place] Diabetes Association (ADA) provides guidance for cutoff [...] Standards of Medical Care in Diabetes 2016, [place] Diabetes Association. Diabetes Care. 2016.39(Suppl 1). Performed By: #### 3 016-3, 96736-7, 52307-5 ####[facility] LABCLIA [id number] [place] [address] [place] Potassium [Moles/Vol] 4.4 mmol/L Normal 3.7-5.1 [facility] Comment on above: Order Comment: Speci men Type: BLOOD SPECIMENOrdering Facility: [facility] Address: [address] [place] [address] Performed By: #### 3 016-3, 67803-6, 81829-9 ####[facility] LABIA [id number] [place] [address] [place] Protein [Mass/Vol] 6.6 g/dL Normal 6.3-8.0 [facility] Comment on above: Order Comment: Speci men Type: BLOOD SPECIMENOrdering Facility: [facility] Address: [address] [place] [address] Performed By: #### 3 016-3, 34553-4, 99454-0 ####[facility] LABCLIA [id number] [place] [address] [place] Sodium [Moles/Vol] 141 mmol/L Normal 136-144 [facility] Comment on above: Order Comment: Speci men Type: BLOOD SPECIMENOrdering Facility: [facility] Address: [address] [place] [address] Performed By: #### 3 016-3, 54366-8, 39971-0 ####[facility] LABIA [id number] [place] [address] [place] Urea nitrogen [Mass/Vol] 21 mg/dL Normal 7-21 [facility] Comment on above: Order Comment: Speci men Type: BLOOD SPECIMENOrdering Facility: [facility] Address: [address] [place] [address] Performed By: #### 3 016-3, 35554-5, 61350-1 ####[facility] LABIA [id number] [place] [address] [place] HbA1c (Bld)on 11-27-2023 Average glucose Estimated from glycated hemoglobin (Bld) [Mass/Vol] 166 mg/dL Normal [facility] Comment on above: Order Comment: Speci men Type: BLOOD SPECIMENOrdering Facility: [facility] Address: [address] [place] [address] Result Comment: eAG: (Estimated average glucose) is a calculated value from HgbA1c and is international account representative of the average blood glucose level in the last 2-3 month period. Performed By: #### 5 5454-3 ####[facility] LABIA [id number] [place] [address] [place] HbA1c (Bld) [Mass fraction] 7.4 % High 4.3-5.6 [facility] Comment on above: Order Comment: Speci men Type: BLOOD SPECIMENOrdering Facility: [facility] Address: [address] [place] [address] Result Comment: Amer ican Diabetes Association guidelines indicate that patients with HgbA1c in the range 5.7-6.4% are at increased risk for development of diabetes, and intervention by lifestyle modification may be beneficial. HgbA1c greater or equal to 6.5% is considered diagnostic of diabetes. Performed By: #### 5 5454-3 ####[facility] LABCLIA [id number] [place] [address] [place] Lipid 1996 panelon 4 Cholesterol [Mass/Vol] 156 mg/dL Normal <200 [facility] Comment on above: Order Comment: Deana suad Type: BLOOD SPECIMENOrdering Facility: [facility] Address: [address] [place] [address] Result Comment: <200 mg/dL, Desirable 200-239 mg/dL, Borderline high >239 mg/dL, High Performed By: #### 3 016-3, 67364-8, 44209-2 ####[facility] LABCLIA [id number] [address] OF [facility] Cholesterol in HDL [Mass/Vol] 41 mg/dL Normal >39 [facility] Comment on above: Order Comment: Deana suad Type: BLOOD SPECIMENOrdering Facility: [facility] Address: [address] [place] [address] Result Comment: 40-5 9 mg/dL, Acceptable >59 mg/dL, High: Negative risk factor for coronary heart disease <40 mg/dL, Low: Positive risk factor for coronary heart disease Performed By: #### 3 016-3, 23156-7, 75013-1 ####[facility] LABCLIA [id number] [address] OF [facility] Cholesterol in LDL [Mass/Vol] 85 mg/dL Normal <100 [facility] Comment on above: Order Comment: Nici men Type: BLOOD SPECIMENOrdering Facility: [facility] Address: [address] [place] [address] Result Comment: <100 mg/dL, Optimal 100-129 mg/dL, Near optimal/above optimal 130-159 mg/dL, Borderline high 160-189 mg/dL, High >189 mg/dL, Very high Secondary prevention optimal LDL Cholesterol levels are recommended to be < 70 mg/dL Performed By: #### 3 016-3, 03102-6, 44012-5 ####[facility] LABCLIA [id number] [place] [address] [place] Cholesterol in LDL/Cholesterol in HDL [Mass ratio] 2.07 {ratio} Normal <2.54 [facility] Comment on above: Order Comment: Speci men Type: BLOOD SPECIMENOrdering Facility: [facility] Address: [address] [place] [address] Result Comment: Refe rence: 1. National Cholesterol Education Program ATP III Guideline At-A-Glance Quick Desk Reference: National Heart, Lung, and Blood [place]. National Institutes of Health. 2001: NIH Publication No. 01-3305. 2. An International Atherosclerosis Society position paper: global recommendations for the management of dyslipidemia: executive summary, Atherosclerosis. 2014: 232(2):410-413. Performed By: #### 3 016-3, 95611-2, 15563-4 ####[facility] LABIA [id number] [place] [address] [place] Cholesterol in VLDL [Mass/Vol] 30 mg/dL High <30 [facility] Comment on above: Order Comment: Speci men Type: BLOOD SPECIMENOrdering Facility: [facility] Address: [address] [place] [address] Performed By: #### 3 016-3, 91707-2, 20839-1 ####[facility] LABCLIA [id number] [place] [address] [place] Cholesterol non HDL [Mass/Vol] 115 mg/dL Normal <130 [facility] Comment on above: Order Comment: Speci men Type: BLOOD SPECIMENOrdering Facility: [facility] Address: [address] [place] [address] Result Comment: <130 mg/dL, Optimal 130-159 mg/dL, Near optimal/above optimal 160-189 mg/dL, Borderline high 190-219 mg/dL, High >219 mg/dL, Very high Secondary prevention optimal non HDL Cholesterol levels are recommended to be <100 mg/dL Performed By: #### 3 016-3, 95729-2, 21154-8 ####[facility] LABCLIA [id number] [place] [address] [place] Cholesterol.total/Alta sterol in HDL [Mass ratio] 3.80 {ratio} Normal <5.10 [facility] Comment on above: Order Comment: Speci men Type: BLOOD SPECIMENOrdering Facility: [facility] Address: [address] [place] [address] Performed By: #### 3 016-3, 80386-2, 62003-7 ####[facility] LABCLIA [id number] [place] [address] [place] FASTING TIME 12 hrs Normal [facility] Comment on above: Order Comment: Speci men Type: BLOOD SPECIMENOrdering Facility: [facility] Address: [address] [place] [address] Performed By: #### 3 016-3, 15540-1, 26891-1 ####[facility] LABCLIA [id number] [place] [address] [place] Triglyceride [Mass/Vol] 148 mg/dL Normal <150 [facility] Comment on above: Order Comment: Speci men Type: BLOOD SPECIMENOrdering Facility: [facility] Address: [address] [place] [address] Result Comment: <150 mg/dL, Normal 150-199 mg/dL, Borderline high 200-499 mg/dL, High >499 mg/dL, Very high Performed By: #### 3 016-3, 60855-2, 98673-7 ####[facility] LABCLIA [id number] [place] [address] [place] TSH SerPl-aCncon 11-27-2023 TSH Qn 1.870 m[IU]/L Normal 0.270-4.200 [facility] Comment on above: Order Comment: Speci men Type: BLOOD SPECIMENOrdering Facility: [facility] Address: [address] [place] [address] Performed By: #### 3 016-3, 03475-6, 97862-9 ####[facility] LABCLIA [id number] [address] [place] CNOVon 10-10-2023 CNOV Office Visit (UCWSTR ) LINDSAY ACUNA ([id number]) 1945 F Date Time Provider Department 10/10/23 7:30 AM DAVID DUPREE [facility] During your visit today, we recorded the following information about you: Temperature Pulse Respiration Blood pressure 97.5 degrees 58/minute 18/minute 128/82 Weight 82.1 kg David Dupree 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 Normal [facility] CNOVon 09-29-2023 CNOV Office Visit (UCWSTR ) LINDSAY ACUNA ([id number]) 1945 F Date Time Provider Department 09/29/23 2:15 PM RADHA LEVINE [facility] During your visit today, we recorded the following information about you: Temperature Pulse Respiration Blood pressure 97.8 degrees 54/minute 18/minute 148/91 Weight 84 kg Radha Levine, [facility] 09/29/2023 6:12 PM Signed This note was created using NoteWriter. Subjective Lindsay Acuna is a 77 year old female. 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 Denies fever or chills Denies malaise or fatigue Denies new lotions, soaps, or medicines States that she was working out in the garden the same day the rash erupted. The history is provided by the patient. No american sign language interpreter was used. Rash This [...] mouth daily before breakfast. blood sugar diagnostic (Paixie.net ULTRA TEST) test strip Test Blood Sugar [...] 30 seconds then expectorate blood sugar diagnostic (Me-MoverTOUCH ULTRA TEST STRIP) test strip Use to [...] state. Hematologi (more content not included)... Normal [facility] Glucose,Bedsideon 04-16-2019 Glucose [Mass/Vol] 161 mg/dL High 70-100 [facility] Comment on above: Result Comment: Test performed by glucose meter. Results may be 10%-15% lower than serum/plasma values. (CLIA ID [id number]) Performed By: #### B GLU #### [address] [address] Surgical Pathologyon 019 Surgical Pathology [id number] [facility] PATHOLOGY AND LABORATORY MEDICINE [address] [place] [address] FINAL SURGICAL PATHOLOGY REPORT ___ NAME: LINDSAY ACUNA : 1945 73 Y F BILLING NO.: [id number] LOCATION: 1XEO PROCEDURE 01/09/2019 DATE: SURGEON: SANTIAGO [...] characteristics determined by the clinical laboratories of [facility]. They have not been cleared by the [...] negativity on decalcified specimens. Professional Performing Location: [address] [address]. DEPARTMENT OF PATHOLOGY AND LABORATORY MEDICINE [place], [place] [address] Normal [facility] .Auto Diffon 08-22-2018 Ammonia mass conc (P) 1.10 10 3/mcL High 0.15-1.00 [facility] ([place]) Comment on above: Performed By: #### B DAYANARA VALVERDE #### [address] [address] Basophils #/vol (Bld) 0.00 10 3/mcL Normal 0.00-0.19 [facility] ([place]) Comment on above: Performed By: #### B MP, GFR #### [address] [address] Basophils/100 WBC (Bld) 0.3 % Normal 0.0-2.5 A [facility] ([place]) Comment on above: Performed By: #### B MP, GFR #### [address] [address] Eosinophils #/vol (Bld) 0.00 10 3/mcL Normal 0.00-0.40 [facility] ([place]) Comment on above: Performed By: #### B MP, GFR #### [address] [address] Eosinophils/100 WBC (Bld) 0.2 % Normal 0.0-7.0 [facility] ([place]) Comment on above: Performed By: #### B MP, GFR #### [address] [address] Lymphocytes #/vol (Bld) 2.20 10 3/mcL Normal 0.77-3.85 [facility] ([place]) Comment on above: Performed By: #### B MP, GFR #### [address] [address] Lymphocytes/100 WBC (Bld) 20.5 % Normal 10.0-50.0 [facility] ([place]) Comment on above: Performed By: #### B MP, GFR #### [address] [address] Monocytes/100 WBC (Bld) 10.5 % Normal 1.7-13.0 [facility] ([place]) Comment on above: Performed By: #### B MP, GFR #### [address] [address] Neutrophils/100 WBC (Bld) 68.5 % Normal 37.0-80.0 [facility] ([place]) Comment on above: Performed By: #### B MP, GFR #### [address] [address] .GFRon 08-22-2018 GFR Non- 33 ml/min/1.73sqm Normal [facility] ([place]) Comment on above: Result Comment: GFR Population [...] By: #### B MP, GFR #### [address] [address] #### DORY LOPEZ, ANEU #### [address] [address] GFR 40 ml/min/1.73sqm Normal [facility] ([place]) Comment on above: Result Comment: GFR Population [...] By: #### B MP, GFR #### [address] [address] #### CBC, ADIFF, ANEU #### [address] [address] .NEUABSon 08-22-2018 Neutrophils #/vol (Bld) 7.40 10 3/mcL High 2.85-6.16 [facility] ([place]) Comment on above: Performed By: #### B MP, GFR #### [place] [address] BMPon 08-22-2018 Calcium mass conc 8.3 mg/dL Low 8.4-10.2 [facility] ([place]) Comment on above: Performed By: #### B MP, GFR #### [place] [address] #### CBC, ADIFF, ANEU #### [place] [address] Chloride molar conc 104 mmol/L Normal 98-107 [facility] ([place]) Comment on above: Performed By: #### B MP, GFR #### [place] [address] #### CBC, ADIFF, ANEU #### [address] [address] CO2 molar conc 25 mmol/L Normal 23-31 [facility] ([place]) Comment on above: Performed By: #### B MP, GFR #### [place] [address] #### CBC, ADIFF, ANEU #### [place] [address] Creatinine mass conc 1.53 mg/dL High 0.55-1.02 [facility] ([place]) Comment on above: Performed By: #### B MP, GFR #### [place] [address] #### CBC, ADIFF, ANEU #### [place] [address]27 Electrolyte Balance 10.0 mEq/L Normal [facility] ([place]) Comment on above: Performed By: #### B MP, GFR #### [place] [address] #### CBC, ADIFF, ANEU #### [address] [address] Glucose mass conc 149 mg/dL High 83-110 [facility] ([place]) Comment on above: Performed By: #### B MP, GFR #### [address] [address] #### CBC, ADIFF, ANEU #### [address] [address] Potassium molar conc 4.3 mmol/L Normal 3.5-5.1 [facility] ([place]) Comment on above: Performed By: #### B MP, GFR #### [address] [address] #### CBC, ADIFF, ANEU #### [address] [address] Sodium molar conc 139 mmol/L Normal 136-145 [facility] ([place]) Comment on above: Performed By: #### B MP, GFR #### [place] [address] #### CBC, ADIFF, ANEU #### [address] [address] Urea nitrogen mass conc 32 mg/dL High 7-18 [facility] ([place]) Comment on above: Performed By: #### B MP, GFR #### [address] [address] #### CBC, ADIFF, ANEU #### [address] [address] Urea nitrogen/Creatinine mass ratio 21 ratio Normal 7-27 [facility] ([place]) Comment on above: Performed By: #### B MP, GFR #### [address] [address] #### CBC, ADIFF, ANEU #### [address] [address] CBCon 08-22-2018 Erythrocyte distribution width Ratio (RBC) 12.6 % Normal 11.5-14.5 [facility] ([place]) Comment on above: Performed By: #### B MP, GFR #### [place] [address] Hematocrit Volume Fraction (Bld) 27.5 % Low 37.0-47.0 [facility] ([place]) Comment on above: Performed By: #### B MP, GFR #### [address] [address] Hemoglobin mass conc (Bld) 9.2 G/dL Low 12.0-16.0 [facility] ([place]) Comment on above: Performed By: #### B MP, GFR #### [place] [address] MCH Entitic mass (RBC) 30.1 pg Normal 27.0-31.2 [facility] ([place]) Comment on above: Performed By: #### B MP, GFR #### [place] [address] MCHC mass conc (RBC) 33.5 G/dL Normal 33.0-37.0 [facility] ([place]) Comment on above: Performed By: #### B MP, GFR #### [place] [address] MCV Entitic volume (RBC) 89.8 fL Normal 80.0-94.0 [facility] ([place]) Comment on above: Performed By: #### B MP, GFR #### [address] [address] Platelet mean volume Entitic volume (Bld) 9.3 fL Normal 7.4-10.4 [facility] ([place]) Comment on above: Performed By: #### B MP, GFR #### [address] [address] Platelets #/vol (Bld) 224 10 3/mcL Normal 130-400 [facility] ([place]) Comment on above: Performed By: #### B MP, GFR #### [address] [address] RBC #/vol (Bld) 3.06 10 6/mcL Low 4.20-5.40 [facility] ([place]) Comment on above: Performed By: #### B MP, GFR #### [facility] [address] [place] [address] WBC #/vol (Bld) 10.80 10 3/mcL Normal 4.60-10.80 [facility] ([place]) Comment on above: Performed By: #### B MP, GFR #### [facility] [address] [place] [address] XR KNEE 1 OR 2 VIEWS RIGHTon [...] AM Sign Date: 08/21/2018 9:55:37 AM Normal [facility] ([place]) CT KNEE W/O CONTRAST RIGHTon 08-09-2018 CT [...] PM Sign Date: 08/09/2018 5:04:12 PM Normal [facility] ([place]) .Auto Diffon 08-06-2018 Ammonia mass conc (P) 0.80 10 3/mcL Normal 0.15-1.00 [facility] ([place]) Comment on above: Performed By: #### C DORY SMITH, ANEU #### [place] [address] #### A1C #### [address] [address] Basophils #/vol (Bld) 0.10 10 3/mcL Normal 0.00-0.19 [facility] ([place] Comment on above: Performed By: #### C DORY SMITH, ANEU #### [place] [address] #### A1C #### [address] [address] Basophils/100 WBC (Bld) 0.6 % Normal 0.0-2.5 A [facility] ([place]) Comment on above: Performed By: #### C DORY SMITH, ANEU #### [place] [address] #### A1C #### [address] [address] Eosinophils #/vol (Bld) 0.20 10 3/mcL Normal 0.00-0.40 [facility] ([place]) Comment on above: Performed By: #### C DORY SMITH, ANEU #### [place] [address] #### A1C #### [address] [address] Eosinophils/100 WBC (Bld) 1.7 % Normal 0.0-7.0 [facility] ([place]) Comment on above: Performed By: #### C SARAH ADCAROL, ANEU #### [place] [address] #### A1C #### [address] [address] Lymphocytes #/vol (Bld) 1.90 10 3/mcL Normal 0.77-3.85 [facility] ([place]) Comment on above: Performed By: #### C BC ADIFF, ANEU #### [address] [address] #### A1C #### [facility] [address] [place] [address] Lymphocytes/100 WBC (Bld) 20.8 % Normal 10.0-50.0 [facility] ([place]) Comment on above: Performed By: #### C BC ADIFF, ANEU #### [address] [address] #### A1C #### [facility] [address] [place] [address] Monocytes/100 WBC (Bld) 9.3 % Normal 1.7-13.0 A [facility] ([place]) Comment on above: Performed By: #### C BC ADIFF, ANEU #### [address] [address] #### A1C #### [address] [address] Neutrophils/100 WBC (Bld) 67.6 % Normal 37.0-80.0 [facility] ([place] Comment on above: Performed By: #### C DORY SMITH, ANEU #### [address] [address] #### A1C #### [address] [address] .GFRon 08-06-2018 GFR 51 ml/min/1.73sqm Normal [facility] ([place]) Comment on above: Result Comment: GFR Population [...] By: #### B MP, GFR #### [address] [address] GFR Non- 42 ml/min/1.73sqm Normal [facility] ([place]) Comment on above: Result Comment: GFR Population [...] Performed By: #### B MP, GFR #### [place] [address] .NEUABSon 08-06-2018 Neutrophils #/vol (Bld) 6.20 10 3/mcL High 2.85-6.16 [facility] ([place]) Comment on above: Performed By: #### DORY SOTO, ANEU #### [address] [address] #### A1C #### [place] [address] A1Con 08-06-2018 Hemoglobin A1c/Hemoglobin.total mass fraction (Bld) 7.9 % High 4.5-6.2 [facility] ([place]) Comment on above: Performed By: #### C DORY SMITH, ANEU #### [address] [address] #### A1C #### [address] [address] BMPon 08-06-2018 Calcium mass conc 9.2 mg/dL Normal 8.4-10.2 [facility] ([place]) Comment on above: Performed By: #### B MP, GFR #### [address] [address] Chloride molar conc 105 mmol/L Normal 98-107 [facility] ([place]) Comment on above: Performed By: #### B MP, GFR #### [address] [address] CO2 molar conc 27 mmol/L Normal 23-31 [facility] ([place]) Comment on above: Performed By: #### B MP, GFR #### [address] [address] Creatinine mass conc 1.25 mg/dL High 0.55-1.02 [facility] ([place]) Comment on above: Performed By: #### B MP, GFR #### [address] [address] Electrolyte Balance 11.0 mEq/L Normal [facility] ([place]) Comment on above: Performed By: #### B MP, GFR #### [place] [address] Glucose mass conc 70 mg/dL Low 83-110 [facility] ([place]) Comment on above: Performed By: #### B MP, GFR #### [place] [id number] Potassium molar conc 5.0 mmol/L Normal 3.5-5.1 [facility] ([place]) Comment on above: Performed By: #### B MP, GFR #### [place] [id number] Sodium molar conc 143 mmol/L Normal 136-145 [facility] ([place]) Comment on above: Performed By: #### B MP, GFR #### [address] [address] Urea nitrogen mass conc 26 mg/dL High 7-18 A [facility] ([place]) Comment on above: Performed By: #### B MP, GFR #### [address] [address] Urea nitrogen/Creatinine mass ratio 21 ratio Normal 7-27 [facility] ([place]) Comment on above: Performed By: #### B MP, GFR #### [address] [address] CBCon 08-06-2018 Erythrocyte distribution width Ratio (RBC) 12.2 % Normal 11.5-14.5 [facility] ([place]) Comment on above: Performed By: #### C DORY SMITH, ANEU #### [address] [address] #### A1C #### [place] [address] Hematocrit Volume Fraction (Bld) 34.6 % Low 37.0-47.0 [facility] ([place]) Comment on above: Performed By: #### C DORY SMITH, ANEU #### [address] [address] #### A1C #### [place] [address] Hemoglobin mass conc (Bld) 11.7 G/dL Low 12.0-16.0 [facility] ([place]) Comment on above: Performed By: #### C DORY SMITH, ANEU #### [address] [address] #### A1C #### [place] [address] MCH Entitic mass (RBC) 30.6 pg Normal 27.0-31.2 [facility] ([place]) Comment on above: Performed By: #### C DORY SMITH, ANEU #### [place] [address] #### A1C #### [place] [address] MCHC mass conc (RBC) 33.7 G/dL Normal 33.0-37.0 [facility] ([place]) Comment on above: Performed By: #### C DORY SMITH, ANEU #### [address] [address] #### A1C #### [place] [address] MCV Entitic volume (RBC) 90.9 fL Normal 80.0-94.0 [facility] ([place]) Comment on above: Performed By: #### C BC, ADIFF, ANEU #### [address] [address] #### A1C #### [address] [address] Platelet mean volume Entitic volume (Bld) 8.8 fL Normal 7.4-10.4 [facility] ([place]) Comment on above: Performed By: #### C BC, ADIFF, ANEU #### [address] [address] #### A1C #### [address] [address] Platelets #/vol (Bld) 355 10 3/mcL Normal 130-400 [facility] ([place]) Comment on above: Performed By: #### C BC, ADIFF, ANEU #### [address] [address] #### A1C #### [place] [address] RBC #/vol (Bld) 3.81 10 6/mcL Low 4.20-5.40 [facility] ([place]) Comment on above: Performed By: #### C BC, ADIFF, ANEU #### [address] [address] #### A1C #### [place] [address] WBC #/vol (Bld) 9.20 10 3/mcL Normal 4.60-10.80 [facility] ([place]) Comment on above: Performed By: #### C BC, ADIFF, ANEU #### [address] [address] #### A1C #### [place] [address] Vital Signs Date Time Vital Sign Value Performing Clinician Facility 10-02-2024 09:0400 Body height 167.[address] Kameron Caruso MD Work Phone: [facility] [place] 10-02-2024 09:21-0400 Diastolic blood pressure 71 mm[Hg] Dr. Kameron Caruso MD Work Phone: [facility] 10-02-2024 09:21-0400 Heart rate 77 /min Dr. Kameron Caruso MD Work Phone: [facility] 10-02-2024 09:21-0400 Respiratory rate 16 /min Dr. Kameron Caruso MD Work Phone: [facility] 10-02-2024 09:21-0400 Systolic blood pressure 111 mm[Hg] Dr. Kameron Caruso MD Work Phone: [facility] 09-09-2024 09:02-0400 Heart rate 100 /min SILVINO SCHEATZLE DO [email or web address] 09-09-2024 07:58-0400 Blood Pressure Cuff Size SILVINO SCHEATZLE DO [email or web address] 09-09-2024 07:58-0400 Blood Pressure Location SILVINO SCHEATZLE DO [facility] 09-09-2024 07:58-0400 Blood Pressure Method SILVINO SCHEATZLE DO [facility] 09-09-2024 07:58-0400 Body temperature 96.8 [degF] SILVINO SCHEATZLE DO [facility] 09-09-2024 07:58-0400 Diastolic Blood Pressure Non-Invasive 78 mm[Hg] SILVINO SCHEATZLE DO [facility] 09-09-2024 07:58-0400 Heart rate 110 /min SILVINO SCHEATZLE DO [facility] 09-09-2024 07:58-0400 Reason For Taking VItal Signs SILVINO SCHEATZLE DO [facility] 09-09-2024 07:58-0400 Respiratory rate 16 /min SILVINO SCHEATZLE DO [facility] [place] 09-09-2024 07:58-0400 Systolic Blood Pressure Non-Invasive 122 mm[Hg] SILVINO CIDATZLE DO [facility] 09-09-2024 02:45-0400 Body temperature 97.7 [degF] SILVINO CIDATZLE DO [facility] 09-09-2024 02:45-0400 Diastolic Blood Pressure Non-Invasive 60 mm[Hg] SILVINO CIDATZLE DO [facility] 09-09-2024 02:45-0400 Heart rate 92 /min SILVINO CIDATZLE DO [facility] [place] 09-09-2024 02:45-0400 Respiratory rate 16 /min SILVINO CIDATZLE DO [facility] 09-09-2024 02:45-0400 Systolic Blood Pressure Non-Invasive 108 mm[Hg] SILVINO CIDATZLE DO [facility] [place] 09-08-2024 22:28-0400 Blood Pressure Cuff Size SILVINO CIDATZLE DO [facility] 09-08-2024 22:28-0400 Blood Pressure Location SILVINO CIDATZLE DO [facility] [place] 09-08-2024 22:28-0400 Blood Pressure Method SILVINO CIDATZLE DO [facility] [place] 09-08-2024 22:28-0400 Body temperature 97.88 [degF] SILVINO CIDATZLE DO [facility] [place] 09-08-2024 22:28-0400 Diastolic Blood Pressure Non-Invasive 54 mm[Hg] SILVINO PALAKATZLE DO [facility] [place] 09-08-2024 22:28-0400 Heart rate 92 /min SILVINO CIDATZLE DO [facility] [place] 09-08-2024 22:28-0400 Reason For Taking VItal Signs SILVINO CIDATZLE DO [facility] [place] 09-08-2024 22:28-0400 Respiratory rate 16 /min SILVINO CIDATZLE DO [facility] 09-08-2024 22:28-0400 Systolic Blood Pressure Non-Invasive 118 mm[Hg] SILVINO [facility]ATZLE DO [facility] 09-08-2024 18:21-0400 Heart rate 90 /min SILVINO CIDATZLE DO [facility] 09-08-2024 09:08-0400 Blood Pressure Cuff Size SILVINO CIDATZLE DO [facility] 09-08-2024 09:08-0400 Blood Pressure Location SILVINO CIDATZLE DO [facility] 09-08-2024 09:08-0400 Blood Pressure Method SILIVNO CIDATZLE DO [facility] 09-08-2024 09:08-0400 Heart rate 114 /min SILVINO CIDATZLE DO [facility] 09-08-2024 09:08-0400 Reason For Taking VItal Signs SILVINO PALAKATZLE DO [facility] 09-04-2024 10:54-0400 Body temperature 96.62 [degF] SILVINO CIDATZLE DO [facility] 09-03-2024 00:26-0400 Body temperature 97.34 [degF] SILVINO CIDATZLE DO [facility] 08-30-2024 22:54-0400 Body temperature 98.06 [degF] SILVINO CIDATZLE DO [facility] [facility] 08-26-2024 10:36-0400 Body weight 76 kg SILVINO RADERLE DO [facility] 08-19-2024 06:00-0400 Body weight 75.3 kg SILVINO CIDATZSHITAL DO [facility] 08-15-2024 14:27-0400 Body height 170.2 cm SILVINO PEARL DO [facility] 08-15-2024 14:27-0400 Body weight 75.4 kg SILVINO PEARL DO [facility] 08-15-2024 14:27-0400 Body weight 26.03 kg/m2 SILVINO PEARL DO [facility] 08-15-2024 09:02-0400 Diastolic blood pressure 69 mm[Hg] [...] 170.2 cm Prema Ramos MD Work Phone: 7(649)310-562543 [address] 08-05-2024 08:00-0400 Body mass index (BMI) [Ratio] 26.94 kg/m2 Prema Ramos MD Work Phone: 4(308)583-620643 [address] 08-05-2024 08:00-0400 Body weight 78.02 kg Prema Ramos MD Work Phone: 9(980)[phone] [place] [address] 08-02-2024 13:52-0400 Body temperature 98 [degF] Dr. Kameron Caruso MD Work Phone: 1(577)860-730540 [place] [address] 08-02-2024 13:52-0400 Diastolic blood pressure 91 mm[Hg] Dr. Kameron Caruso MD Work Phone: 2(913)544-422240 [place] [address] 08-02-2024 13:52-0400 Heart rate 109 /min Dr. Kameron Caruso MD Work Phone: 1(115)303-800740 [place] [address] 08-02-2024 13:52-0400 Respiratory rate 16 /min Dr. Kameron Caruso MD Work Phone: 1(762)740-196740 [place] [address] 08-02-2024 13:52-0400 SaO2% (BldA) [Mass fraction] 98 % Dr. Kameron Caruso MD Work Phone: 2(038)616-888640 [place] [address] 08-02-2024 13:52-0400 Systolic blood pressure 153 mm[Hg] Dr. Kameron Caruso MD Work Phone: 0(705)790-285240 [place] [address] 08-02-2024 12:46-0400 Body height 167.[address] Kameron Caruso MD Work Phone: 2(430)985-032840 [place] [address] 08-02-2024 12:46-0400 Body mass index (BMI) [Ratio] 26.6 kg/m2 Dr. Kameron Caruso MD Work Phone: 6(413)173-838840 [place] [address] 08-02-2024 12:46-0400 Body weight [address] Kameron Caruso MD Work Phone: 5(419)238-984740 [place] [address] 06-26-2024 09:39-0500 Body mass index (BMI) [Ratio] 27.25 kg/m2 Emma Canaleshofreddie BONE CHAR OPERATOR.LAMINATION OPERATOR Work Phone: [facility] 06-26-2024 09:39-0500 Body weight 78.93 kg Emma Glasgow BONE CHAR OPERATOR.LAMINATION OPERATOR Work Phone: [facility] 06-26-2024 09:39-0500 Diastolic blood pressure 88 mm[Hg] Emma Canaleshof BONE CHAR OPERATOR.LAMINATION OPERATOR Work Phone: [facility] 06-26-2024 09:39-0500 Heart rate 93 /min Emma Canaleshof BONE CHAR OPERATOR.LAMINATION OPERATOR Work Phone: [facility] 06-26-2024 09:39-0500 Respiratory rate 16 /min Emma Gonzalesf BONE CHAR OPERATOR.LAMINATION OPERATOR Work Phone: [facility] 06-26-2024 09:39-0500 SaO2% (BldA) [Mass fraction] 98 % Emma Glasgow BONE CHAR OPERATOR.LAMINATION OPERATOR Work Phone: [facility] 06-26-2024 09:39-0500 Systolic blood pressure 144 mm[Hg] Emma Canaleshof BONE CHAR OPERATOR.LAMINATION OPERATOR Work Phone: [facility] 05-31-2024 08:56-0500 Diastolic blood pressure 84 mm[Hg] Kameron Caruso MD Work Phone: [facility] 05-31-2024 08:56-0500 Systolic blood pressure 136 mm[Hg] Kameron Caruso MD Work Phone: [facility] 05-31-2024 08:47-0500 Body mass index (BMI) [Ratio] 27.28 kg/m2 Kameron Caruso MD Work Phone: [facility] 05-31-2024 08:47-0500 Body weight 79 kg Kameron Caruso MD Work Phone: [facility] 05-31-2024 08:47-0500 Heart rate 100 /min Kameron Caruso MD Work Phone: [facility] 05-31-2024 08:47-0500 Respiratory rate 18 /min Kameron Caruso MD Work Phone: [facility] 11-28-2023 09:42-0400 Diastolic blood pressure 78 mm[Hg] Kameron Caruso MD Work Phone: [facility] 11-28-2023 09:42-0400 Systolic blood pressure 142 mm[Hg] Kameron Caruso MD Work Phone: [facility] 11-28-2023 09:41-0400 Body mass index (BMI) [Ratio] 27.82 kg/m2 Kameron Caruso MD Work Phone: [facility] 11-28-2023 09:41-0400 Body weight 80.56 kg Kameron Caruso MD Work Phone: [facility] 11-28-2023 09:41-0400 Heart rate 68 /min Kameron Caruso MD Work Phone: [facility] 11-28-2023 09:41-0400 Respiratory rate 18 /min Kameron Caruso MD Work Phone: [facility] 10-10-2023 07:31-0400 Body mass index (BMI) [Ratio] 28.35 kg/m2 David Dupree APRN.LAMINATION OPERATOR Work Phone: [facility] 10-10-2023 07:31-0400 Body temperature 97.5 [degF] David Dupree BONE CHAR OPERATOR.LAMINATION OPERATOR Work Phone: [facility] 10-10-2023 07:31-0400 Body weight 82.1 kg David Dupree BONE CHAR OPERATOR.LAMINATION OPERATOR Work Phone: [facility] 10-10-2023 07:31-0400 Diastolic blood pressure 82 mm[Hg] David Dupree BONE CHAR OPERATOR.LAMINATION OPERATOR Work Phone: [facility] 10-10-2023 07:31-0400 Heart rate 58 /min David Dupree BONE CHAR OPERATOR.LAMINATION OPERATOR Work Phone: [facility] 05-28-2024 07:31-0400 Respiratory rate 18 /min David Pakbury BONE CHAR OPERATOR.LAMINATION OPERATOR Work Phone: [facility] 10-10-2023 07:31-0400 SaO2% (BldA) [Mass fraction] 100 % David Pakbury BONE CHAR OPERATOR.LAMINATION OPERATOR Work Phone: [facility] 10-10-2023 07:31-0400 Systolic blood pressure 128 mm[Hg] David Pakbury BONE CHAR OPERATOR.LAMINATION OPERATOR Work Phone: [facility] 09-29-2023 14:14-0400 Body mass index (BMI) [Ratio] 29 kg/m2 Radha Levine BONE CHAR OPERATOR.LAMINATION OPERATOR Work Phone: [facility] 09-29-2023 14:14-0400 Body temperature 97.81 [degF] Radha Levine BONE CHAR OPERATOR.LAMINATION OPERATOR Work Phone: [facility] 09-29-2023 14:14-0400 Body weight 84 kg Radha Levine BONE CHAR OPERATOR.LAMINATION OPERATOR Work Phone: [facility] 09-29-2023 14:14-0400 Diastolic blood pressure 91 mm[Hg] Radha Levine BONE CHAR OPERATOR.LAMINATION OPERATOR Work Phone: [facility] 09-29-2023 14:14-0400 Heart rate 54 /min Radha Levine BONE CHAR OPERATOR.LAMINATION OPERATOR Work Phone: [facility] 09-29-2023 14:14-0400 Respiratory rate 18 /min Radha Levine BONE CHAR OPERATOR.LAMINATION OPERATOR Work Phone: [facility] 09-29-2023 14:14-0400 SaO2% (BldA) [Mass fraction] 99 % Radha Levine BONE CHAR OPERATOR.LAMINATION OPERATOR Work Phone: [facility] 09-29-2023 14:14-0400 Systolic blood pressure 148 mm[Hg] Radha Levine BONE CHAR OPERATOR.LAMINATION OPERATOR Work Phone: [facility] 05-27-2022 09:42-0500 Body weight 83.83 kg Kameron Caruso MD Work Phone: [facility] 05-27-2022 09:42-0500 Diastolic blood pressure 84 mm[Hg] Kameron Caruso MD Work Phone: [facility] 05-27-2022 09:42-0500 Heart rate 68 /min Kameron Caruso MD Work Phone: [facility] 05-27-2022 09:42-0500 Respiratory rate 16 /min Kameron Caruso MD Work Phone: [facility] 05-27-2022 09:42-0500 Systolic blood pressure 136 mm[Hg] Kameron Caruso MD Work Phone: [facility] 03-02-2022 10:52-0400 Diastolic blood pressure 76 mm[Hg] Emma Tannhof BONE CHAR OPERATOR.LAMINATION OPERATOR Work Phone: [facility] 03-02-2022 10:52-0400 Heart rate 92 /min Emma Tannhof BONE CHAR OPERATOR.LAMINATION OPERATOR Work Phone: [facility] 03-02-2022 10:52-0400 Respiratory rate 18 /min Emma Tannhof BONE CHAR OPERATOR.LAMINATION OPERATOR Work Phone: [facility] 03-02-2022 10:52-0400 Systolic blood pressure 140 mm[Hg] Emma Tannhof BONE CHAR OPERATOR.LAMINATION OPERATOR Work Phone: [facility] 11-23-2021 09:39-0400 Body weight 83.1 kg Kameron Caruso MD Work Phone: [facility] 11-23-2021 09:39-0400 Diastolic blood pressure 80 mm[Hg] Kameron Caruso MD Work Phone: [facility] 11-23-2021 09:39-0400 Heart rate 84 /min Kameron Caruso MD Work Phone: [facility] 11-23-2021 09:39-0400 Respiratory rate 16 /min Kameron Caruso MD Work Phone: [facility] 11-23-2021 09:39-0400 Systolic blood pressure 138 mm[Hg] Kameron Caruso MD Work Phone: [facility] 10-16-2019 10:09-0400 BP Diastolic 72 mm[Hg] Santiago Miller [facility] [place] , [place] 10-16-2019 10:09-0400 BP Systolic 144 mm[Hg] Santiago Miller [facility] [place] 10-16-2019 10:09-0400 Pulse (Heart Rate) 62 /min Santiago Miller [facility] [place], [place] 10-16-2019 10:09-0400 Pulse Oximetry 98 % Santiago Miller [facility] [place] , [place] 10-16-2019 10:09-0400 Respiratory Rate 18 /min [facility] [place] 10-16-2019 09:15-0400 BMI (Body Mass Index) 29.44 kg/m2 Santiago Miller [facility] 10-16-2019 09:15-0400 Body Temperature 97.81 [degF] Santiago Miller [facility] [place] 10-16-2019 09:15-0400 Body weight 85.28 kg Santiago Miller [facility] , [place] 10-16-2019 09:15-0400 Height 170.2 cm Santiago Miller [facility] , [place] 01-09-2019 12:06-0400 BP Diastolic 73 mm[Hg] Santiago Miller [facility] [place] [facility] [place] 01-09-2019 12:06-0400 BP Systolic 121 mm[Hg] Santiago Miller [facility] [place] 01-09-2019 11:50-0400 Pulse (Heart Rate) 64 /min Santiago Miller [facility] 01-09-2019 11:50-0400 Pulse Oximetry 100 % Santiago Miller [facility] [place] 01-09-2019 11:50-0400 Respiratory Rate 18 /min Santiago Miller [facility] [place] 01-09-2019 10:28-0400 BMI (Body Mass Index) 28.82 kg/m2 Santiago Miller [facility] 01-09-2019 10:28-0400 Body weight 83.46 kg Santiago Miller [facility] , [place] 01-09-2019 10:28-0400 Height 170.2 cm Santiago Miller [facility] , [place] 01-09-2019 10:27-0400 Body Temperature 97.5 [degF] [facility] [place] Encounters Encounter Date Encounter Type Care Provider Facility Start: 03-25-2025 ambulatory Efewongbe Oleghe OLS Fa cility:[facility] [place] Start: 03-18-2025 ambulatory Efewongbe Oleghe OLS Fa cility:[facility] [place] Start: 03-11-2025 ambulatory Efewongbe Oleghe OLS Fa cility:[facility] [place] Start: 03-04-2025 ambulatory Efewongbe Oleghe OLS Fa cility:[facility] [place] Start: 02-25-2025 ambulatory Efewongbe Oleghe OLS Fa cility:[facility] [place] Start: 02-18-2025 ambulatory Efewongbe Oleghe OLS Fa cility:[facility] [place] Start: 02-18-2025 Safia Martin - [place] Start: 02-11-2025 ambulatory Efewongbe Oleghe OLS Fa cility:[facility] [place] Start: 02-11-2025 Safia Martin - [place] Start: 02-04-2025 ambulatory Efewongbe Oleghe OLS Fa cility:[facility] [place] Start: 02-04-2025 Safia Martin - [place] Start: 01-28-2025 ambulatory Efewongbe Oleghe OLS Fa cility:[facility] [place] Start: 01-28-2025 Safia Martin - [place] Start: 01-21-2025 ambulatory Efewongbe Oleghe OLS Fa cility:[facility] [place] Start: 01-21-2025 Safia Martin - [place] Start: 01-14-2025 ambulatory Efewongbe Oleghe OLS Fa cility:[facility] [place] Start: 01-14-2025 Safia Torres Start: 01-07-2025 End: 01-07-[address] Kameron Caruso MD Work Phone: -Veronica Torres Start: 01-07-2025 End: 01-07-2025 Safia Torres Start: 01-07-2025 End: 01-07-2025 ambulatory Kameron Caruso Facility:[facility] [place] Start: 12-31-2024 End: 12-31-[address] Kameron Caruso MD Work Phone: [facility] Start: 12-31-2024 End: 12-31-2024 Dr. Safia Ruelas MD -[facility] Work Phone: Start: 12-24-2024 ambulatory Kameron Caruso Facilit y:[facility] [place] Start: 12-24-2024 Safia SOMMER L - [place] Start: 12-17-2024 ambulatory Efewongbe Oleghe OLS Fa cility:[facility] [place] Start: 12-17-2024 Safia Martin - [place] Start: 12-10-2024 ambulatory Efewongbe Oleghe OLS Fa cility:[facility] [place] Start: 12-10-2024 Safia SOMMER L - [place] Start: 12-03-2024 ambulatory Efewongbe Oleghe OLS Fa cility:[facility] [place] Start: 12-03-2024 Safia SOMMER L - [place] Start: 11-28-2024 End: 11-28-[address] Kameron Caruso MD Work Phone: [facility] Start: 11-28-2024 End: 11-28-2024 Bret WILKERSON -[facility] Work Phone: Start: 11-26-2024 ambulatory Efewongbe Oleghe OLS Fa cility:[facility] [place] Start: 11-26-2024 Registered Referred Safia Torres Start: 11-26-2024 Safia Martin - [place] Start: 11-25-2024 End: 11-25-[address] Kameron Caruso MD Work Phone: Joseph Torres Start: 11-25-2024 Registered Referred Safia Torres Start: 11-25-2024 End: 11-25-2024 Safia Torres Start: 11-25-2024 End: 11-25-2024 ambulatory Efewongbe Olebonie OLS Facility:[facility] [place] Start: 11-20-2024 End: 11-20-[address] Kameron Caruso MD Work Phone: [facility] Start: 11-20-2024 End: 11-20-2024 Bret Snyder MaurisioC -[facility] Work Phone: Start: 11-19-2024 ambulatory Efewongbe Olebonie OLS Fa cility:[facility] [place] Start: 11-19-2024 Registered Referred Safia Torres Start: 11-19-2024 Safia Torres Start: 11-12-2024 End: 11-12-[address] Kameron Caruso MD Work Phone: -GILMA Torres Start: 11-12-2024 Registered Referred Safia Torres Start: 11-12-2024 End: 11-12-2024 Safia Torres Start: 11-12-2024 End: 11-12-2024 ambulatory Efewongbe Olebonie OLS Facility:[facility] [place] Start: 11-05-2024 ambulatory Efewongbe Enricoe OLS Fa cility:[facility] [place] Start: 11-05-2024 Registered Referred Safia Torres Start: 11-05-2024 Safia Torres Start: 10-30-2024 End: 10-30-[address] Kameron Caruso MD Work Phone: [facility] Start: 10-30-2024 End: 10-30-2024 Patient encounter procedure Bret Snyder OUTREACH PROFESSIONAL- -[facility] Work Phone: Start: 10-30-2024 End: 10-30-2024 Bret Snyder OUTREACH PROFESSIONAL-[facility] Work Phone: Start: 10-29-2024 End: 10-29-[address] Safia Ruelas MD -[facility] Work Phone: Start: 10-29-2024 End: 10-29-[address] Kameron Caruso MD Work Phone: [facility] Start: 10-29-2024 Registered Referred Safia Torres Start: 10-29-2024 End: 10-29-2024 Dr. Safia Ruelas MD -[facility] Work Phone: Start: 10-29-2024 End: 10-29-2024 ambulatory Safia VARGAS Facility:[facility] [place] Start: 10-23-2024 ambulatory Safia Ruelas OLS Fa cility:[facility] Start: 10-23-2024 Registered Referred Safia Torres Start: 10-23-2024 Safia Torres Start: 10-22-2024 End: 10-22-2024 Patient encounter procedure Bret Snyder [facility] Work Phone: Start: 10-22-2024 End: 10-22-[address] Kameron Caruso MD Work Phone: [facility] Start: 10-22-2024 Registered Referred Safia Torres Start: 10-22-2024 End: 10-22-2024 Bret Snyder NP-[facility] Work Phone: Start: 10-15-2024 ambulatory Safia Ruelas OLS Fa cility:[facility] [place] Start: 10-15-2024 Registered Referred Safia Torres Start: 10-15-2024 Safia Torres Start: 10-09-2024 End: 10-09-[address] Kameron Caruso MD Work Phone: [facility] Start: 10-09-2024 End: 10-09-2024 Patient encounter procedure Bret Snyder OUTREACH PROFESSIONAL- -[facility] Work Phone: Start: 10-09-2024 End: 10-09-2024 Bret Snyder [facility] Work Phone: Start: 10-08-2024 ambulatory Efsherry Ruelas OLS Fa cility:[facility] [place] Start: 10-08-2024 Registered Referred Safia Torres Start: 10-08-2024 Safia Torres Start: 10-02-2024 End: 10-02-[address] Mj Benavides MD -[facility] Work Phone: Start: 10-02-2024 End: 10-02-2024 Dr. Mj Benavides MD -[facility] Work Phone: Start: 10-02-2024 End: 10-02-[address] Kameron Caruso MD Work Phone: [facility] Work Phone: Start: 10-01-2024 ambulatory Efewjosé antonio Ruelas OLS Fa cility:[facility] [place] Start: 10-01-2024 Registered Referred Safia Torres Start: 10-01-2024 Safia Torres Start: 09-29-2024 ambulatory Efewongbe Enricoe OLS Fa cility:[facility] Start: 09-29-2024 Registered Referred Safia Torres Start: 09-29-2024 Safia Torres Start: 09-24-2024 ambulatory Safia Ruelas OLS Fa cility:[facility] Start: 09-24-2024 Registered Referred Safia Torres Start: 09-24-2024 Safia Torres Start: 09-17-2024 ambulatory Safia Ruelas OLS Fa cility:[facility] Start: 09-17-2024 Registered Referred Safia Torres Start: 09-17-2024 Safia Torres Start: 09-11-2024 End: 09-11-2024 ambulatory Bret Snyder OUTREACH PROFESSIONAL Facility:[facility] Start: 09-11-2024 End: 09-11-2024 Patient encounter procedure Bret Snyder OUTREACH PROFESSIONAL-C -[facility] Work Phone: Start: 09-11-2024 End: 09-11-2024 Bret Snyder OUTREACH PROFESSIONAL-C -[facility] Work Phone: Start: 09-10-2024 End: 09-10-[address] Safia Ruelas MD -[facility] Work Phone: Start: 09-10-2024 End: 09-10-2024 ambulatory Kameron Caruso Facility:[facility] Start: 09-10-2024 Registered Referred Safia Torres Start: 09-10-2024 End: 09-10-2024 Dr. Safia Ruelas MD -[facility] Work Phone: Start: 08-30-2024 End: 08-30-2024 Telephone encounter Kameron Caruso MD Work Phone: [facility] Comment on above: Tyler Chucho requesti ng verbal agree to follow Start: 08-15-2024 End: 09-09-2024 Evaluation and management of inpatient SILVINO CIDBEULAH DO [facility] Start: 08-09-2024 Evaluation and manag ement of inpatient KAMERON CARUSO Facility:[facility] Start: 08-06-2024 Evaluation and manag ement of inpatient [facility] Start: 08-02-2024 End: 08-02-2024 ambulatory [facility] Facility:[facility] Start: 08-02-2024 End: 08-15-2024 Evaluation and [...] encounter Kameron Caruso MD Work Phone: [facility] Comment on above: medication not on cu rrent med list Start: 06-26-2024 End: 06-26-2024 Office outpatient visit 25 minutes Emma Glasgow APRN.CNP Work Phone: [facility] [place] Comment on above: Atrial fibrillation, unspecified type (HCC) (Primary Dx); Hypothyroidism, unspecified type; Need for malaria prophylaxis Start: 06-26-2024 End: 06-26-2024 ambulatory [facility] GLASGOW Facility:[facility] Start: 06-25-2024 ambulatory KAMERON CARUSO Facil ity:[facility] Start: 06-24-2024 End: 06-24-2024 Telephone encounter Kameron Caruso MD Work Phone: [facility] [place] Comment on above: Patient Update Start: 06-11-2024 End: 06-11-2024 Telephone encounter Kameron Caruso MD Work Phone: [facility] [place] Comment on above: Results Start: 06-11-2024 End: 06-11-2024 ambulatory [facility] Facility:[facility] Start: 06-10-2024 End: 06-11-2024 Telephone encounter Kameron Caruso MD Work Phone: [facility] [place] Comment on above: Medication Problem Start: 05-31-2024 End: 05-31-2024 ambulatory [facility] Facility:[facility] Start: 05-31-2024 End: 05-31-2024 Patient encounter procedure Kameron Caruso MD Work Phone: [facility] [place] Comment on above: Essential [...] Start: 05-23-2024 End: 05-23-2024 [facility] Facility:[facility] Start: 11-28-2023 End: 11-28-2023 [facility] Facility:[facility] Start: 11-28-2023 End: 11-28-2023 Patient encounter procedure Kameron Caruso MD Work Phone: [facility] [place] Comment on above: Type [...] Start: 11-27-2023 End: 11-27-2023 [facility] Facility:[facility] Start: 10-10-2023 End: 10-10-2023 ambulatory KAMERON CARUSO Facility:[facility] Start: 10-10-2023 End: 10-10-2023 Office outpatient visit 25 minutes David Joon BONE CHAR OPERATOR.LAMINATION OPERATOR Work Phone: [facility] Comment on above: Rash (Primary Dx) Start: 09-29-2023 End: 09-29-2023 ambulatory KAMERON CARUSO Facility:[facility] Start: 09-29-2023 End: 09-29-2023 Patient encounter procedure Radha Levine BONE CHAR OPERATOR.LAMINATION OPERATOR Work Phone: [facility] Comment on above: Allergic contact lexi matitis due to plant (Primary Dx) Start: 09-19-2023 Refill Kameron nixon MD Work Phone: [facility] [place] Comment on above: Refill Request Start: 04-08-2023 Telephone encounter Kameron bucio MD Work Phone: [address] [place] [address] Comment on above: Refill Request Start: 11-25-2022 Telephone encounter Kameron bucio MD Work Phone: [facility] [place] Comment on above: Patient Question Start: 05-27-2022 End: 05-27-2022 Patient encounter procedure Kameron Caruso MD Work Phone: [facility] [place] Comment on above: Essential hypertensi on, benign (Primary Dx); Hypothyroidism, unspecified type; Type 2 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, without long-term current use of insulin (HCC); Hyperlipidemia, unspecified hyperlipidemia type; Chronic kidney disease, stage 3a (HCC); Edema of left lower leg; Wellness examination Start: 05-27-2022 End: 05-27-2022 Patient encounter status Kameron Caruso MD Work Phone: [facility] [place] Start: 04-11-2022 Refill Kameron nixon MD Work Phone: [facility] Comment on above: Refill Request Start: 03-02-2022 ambulatory Kameron nixon MD Work Phone: [facility] [place] Comment on above: Back Pain Start: 03-02-2022 End: 03-02-2022 Patient encounter procedure Emma Glasgow BONE CHAR OPERATOR.LAMINATION OPERATOR Work Phone: [facility] [place] Comment on above: Acute midline low ba ck pain without sciatica (Primary Dx) Start: 01-11-2022 Refill Mj ORTIZ RN.LAMINATION OPERATOR Work Phone: [facility] [place] Comment on above: Refill Request Start: 01-11-2022 Refill Kameron nixon MD Work Phone: [facility] [place] Comment on above: Refill Request Start: 12-16-2021 Telephone encounter Kameron bucio MD Work Phone: [facility] [place] Comment on above: Diabetic Testing Sup plies Start: 11-23-2021 End: 11-23-2021 Refill Kameron Caruso MD Work Phone: [facility] [place] Comment on above: 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, unspecified CKD stage, unspecified whether care home insulin use (HCC) (Primary Dx); Essential hypertension, benign; Hyperlipidemia, unspecified hyperlipidemia type; Stage 3b chronic kidney disease (HCC); Hypothyroidism, unspecified type; Memory loss Start: 10-14-2021 Refill Kameron nixon MD Work Phone: [facility] [place] Comment on above: Refill Request Start: 09-27-2021 Telephone encounter Kameron bucio MD Work Phone: [facility] [place] Comment on above: information requeste d/rxs needed Start: 09-13-2021 Telephone encounter Kameron bucio MD Work Phone: [facility] [place] Comment on above: Patient Question; [...] 08-15-2024 Assay of magnesium Abram rin Nadine BONE CHAR OPERATOR-LAMINATION OPERATOR Work Phone: Start: 08-15-2024 Glucose measurement, blood Christos Gibson MD Work Phone: Start: 08-14-2024 Glucose measurement, blood Christos Gibson MD Work Phone: Start: 08-14-2024 Glucose measurement, blood Christos Gibson MD Work Phone: Start: 08-14-2024 Glucose measurement, blood Christos Gibson MD Work Phone: Start: 08-14-2024 Assay of magnesium Abdoule rin M Nadine BONE CHAR OPERATOR-LAMINATION OPERATOR Work Phone: Start: 08-13-2024 Glucose measurement, blood Christos Gibson MD Work Phone: Start: 08-13-2024 Glucose measurement, blood Christos Gibson MD Work Phone: Start: 08-13-2024 Glucose measurement, blood Christos Gibson MD Work Phone: Start: 08-13-2024 Glucose measurement, blood Feilcity Castellano MD Work Phone: Start: 08-13-2024 Assay of magnesium Nase rin M Nadine BONE CHAR OPERATOR-LAMINATION OPERATOR Work Phone: Start: 08-13-2024 Glucose measurement, blood Felicity Castellano MD Work Phone: Start: 08-12-2024 Glucose measurement, blood Felicity Castellano MD Work Phone: Start: 08-12-2024 Glucose measurement, blood Felicity Castellano MD Work Phone: Start: 08-12-2024 Glucose measurement, blood Felicity Castellano MD Work Phone: Start: 08-12-2024 Assay of magnesium Nase rin M Nadine BONE CHAR OPERATOR-LAMINATION OPERATOR Work Phone: Start: 08-12-2024 Glucose measurement, blood Felicity Castellano MD Work Phone: Start: 08-11-2024 Glucose measurement, blood Felicity Castellano MD Work Phone: Start: 08-11-2024 Glucose measurement, blood Felicity Castellano MD Work Phone: Start: 08-11-2024 Glucose measurement, blood Felicity Castellano MD Work Phone: Start: 08-11-2024 Assay of magnesium Nase rin M Nadine BONE CHAR OPERATOR-LAMINATION OPERATOR Work Phone: Start: 08-10-2024 Glucose measurement, blood Felicity Castellano MD Work Phone: Start: 08-10-2024 Glucose measurement, blood Felicity Castellano MD Work Phone: Start: 08-10-2024 End: 08-10-2024 Culture bacterial blood aerobic w/id isolates Radha Gr BONE CHAR OPERATOR-LAMINATION OPERATOR Work Phone: Start: 08-10-2024 Glucose measurement, blood Felicity Castellano MD Work Phone: Start: 08-10-2024 End: 08-10-2024 Glucose measurement, blood Felicity Castellano MD Work Phone: Start: 08-10-2024 Glucose measurement, blood Felicity Castellano MD Work Phone: Start: 08-10-2024 Assay of magnesium Abram Schulteameh BONE CHAR OPERATOR-LAMINATION OPERATOR Work Phone: Start: 08-10-2024 Glucose measurement, [...] Start: 08-09-2024 Assay of magnesium Abram Mccoy BONE CHAR OPERATOR-LAMINATION OPERATOR Work Phone: Start: 08-09-2024 Glucose measurement, blood Felicity Castellano MD Work Phone: Start: 08-08-2024 Glucose measurement, blood Felicity Castellano MD Work Phone: Start: 08-08-2024 Culture bct isol&prs mptv id isolate ea urine Bella Cardenas BONE CHAR OPERATOR-LAMINATION OPERATOR Work Phone: Start: 08-08-2024 EXTRA MICRO Bella matthews BONE CHAR OPERATOR-LAMINATION OPERATOR Work Phone: Start: 08-08-2024 URINALYSIS REFLEX TO CULTURE Bella Cardenas BONE CHAR OPERATOR-LAMINATION OPERATOR Work Phone: Start: 08-08-2024 Ct head/brain w/o co ntrast material Bella Cardenas BONE CHAR OPERATOR-LAMINATION OPERATOR Work Phone: Start: 08-08-2024 Glucose measurement, blood Felicity Castellano MD Work Phone: Start: 08-08-2024 End: 08-08-2024 Glucose measurement, blood Felicity Castellano MD Work Phone: Start: 08-08-2024 Assay of magnesium Abram Mccoy BONE CHAR OPERATOR-LAMINATION OPERATOR Work Phone: Start: 08-07-2024 Glucose measurement, blood Felicity Castellano MD Work Phone: Start: 08-07-2024 Glucose measurement, blood Felicity Castellano MD Work Phone: Start: 08-07-2024 Glucose measurement, blood Felicity Castellano MD Work Phone: Start: 08-07-2024 Glucose measurement, blood Felicity Castellano MD Work Phone: Start: 08-06-2024 Glucose measurement, blood Felicity Castellano MD Work Phone: Start: 08-06-2024 Assay of magnesium Abram Mccoy BONE CHAR OPERATOR-LAMINATION OPERATOR Work Phone: Start: 08-06-2024 Glucose measurement, blood Felicity Castellano MD Work Phone: Start: 08-06-2024 Glucose measurement, blood Felicity Castellano MD Work Phone: Start: 08-06-2024 Radiologic exam swal low function contrast study Shanna Russ BONE CHAR OPERATOR-LAMINATION OPERATOR Work Phone: Start: 08-06-2024 SPEECH MODIFIED KE[facility] SWALLOW Shanna Russ BONE CHAR OPERATOR-LAMINATION OPERATOR Work Phone: Start: 08-06-2024 Glucose measurement, blood Felicity Castellano MD Work Phone: Start: 08-05-2024 Glucose measurement, blood Felicity Castellano MD Work Phone: Start: 08-05-2024 Assay of magnesium Nase rin Jaiden Nadine BONE CHAR OPERATOR-LAMINATION OPERATOR Work Phone: Start: 08-05-2024 Glucose measurement, blood Felicity Castellano MD Work Phone: Start: 08-05-2024 Glucose measurement, blood Felicity Castellano MD Work Phone: Start: 08-05-2024 [facility]wom-mode compl spec&colr d Taran Traore BONE CHAR OPERATOR-LAMINATION OPERATOR Work Phone: Start: 08-05-2024 Glucose measurement, blood Felicity Castellano MD Work Phone: Start: 08-05-2024 Assay of magnesium Nase rin Jaiden Nadine BONE CHAR OPERATOR-LAMINATION OPERATOR Work Phone: Start: 08-05-2024 Glucose measurement, [...] Assay of magnesium Nase rin M Nadine BONE CHAR OPERATOR-LAMINATION OPERATOR Work Phone: Start: 08-04-2024 Glucose measurement, blood Richard Mejia MD Work Phone: Start: 08-03-2024 Ct head/brain w/o co ntrast material Shaila Méndez PA-C Start: 08-03-2024 Sodium serum plasma or whole blood Shanna Denise MD Work Phone: Start: 08-03-2024 Glucose measurement, blood Richard Mejia MD Work Phone: Start: 08-03-2024 Radiologic exam abdo men 1 view Balbir Jaiden Nadine BONE CHAR OPERATOR-LAMINATION OPERATOR Work Phone: Start: 08-03-2024 Glucose measurement, [...] brain stem w/o contrast material Taran Traore BONE CHAR OPERATOR-LAMINATION OPERATOR Work Phone: Start: 08-03-2024 ABORH TYPE RECONFIRMATION Cindy CORDOVA Work Phone: Start: 08-03-2024 Assay of magnesium Abram scott Jaiden Cardenash BONE CHAR OPERATOR-LAMINATION OPERATOR Work Phone: Start: 08-02-2024 Glucose measurement, [...] Performed By: #### X M #### [facility] ([facility], [facility]) [address] [place] [address] Start: 08-02-2024 EXTRA MICRO Taran Traore BONE CHAR OPERATOR-LAMINATION OPERATOR Work Phone: Start: 08-02-2024 Hemoglobin glycosylated a1c Balbir Mccoy BONE CHAR OPERATOR-LAMINATION OPERATOR Work Phone: Start: 08-02-2024 Hepatic function panel Balbir Mccoy BONE CHAR OPERATOR-LAMINATION OPERATOR Work Phone: Start: 08-02-2024 Iadna s aureus ampli fied probe tq Balbir Cardenash BONE CHAR OPERATOR-LAMINATION OPERATOR Work Phone: Start: 08-02-2024 URINALYSIS REFLEX TO CULTURE Taran Traore BONE CHAR OPERATOR-LAMINATION OPERATOR Work Phone: Start: 08-02-2024 Urnls dip stick/tabl et reagent auto microscopy Taran Traore BONE CHAR OPERATOR-LAMINATION OPERATOR Work Phone: Start: 08-02-2024 SARS-CoV-2, Influenz [...] Author Start: 08-15-2025 Complete blood count Hemoglobin/Hematocrit [facility] Start: 08-15-2025 Creatinine measurement Serum Creatinine [facility] Start: 08-02-2025 Thyroid stimulating hormone measurement [facility] Start: 06-26-2025 Annual PCP Team Chronic Disease Visit Annual PCP Team Chronic Disease Visit [facility] Start: 05-31-2025 Annual PCP Team Chronic Disease Visit Annual PCP Team Chronic Disease Visit [facility] Start: 05-31-2025 Covid-19 Vaccine ( season) Covid-19 Vaccine ( season) [facility] Comment on above: Postponed from 01/14/2024 (Declined at t his time) Start: 05-31-2025 Pneumococcal Vaccine: 50+ (2 of 2 - PPSV23) Pneumococcal Vaccine: 50+ (2 of 2 - PPSV23) [facility] Comment on above: Postponed from 12/19/2019 (Declined at t his time) Start: 05-23-2025 Creatinine measurement Serum Creatinine [facility] Start: 05-23-2025 Hepatitis B screening Urine Albumin:Creatinine Ratio [facility] Start: 05-23-2025 Hepatitis B surface antibody level LDL Cholesterol [facility] Start: 03-04-2025 -[facility] [place] Start: 02-25-2025 -[facility] [place] Start: 02-02-2025 Hemoglobin A[facility]c [facility] Start: 01-13-2025 Influenza vaccination [facility] Start: 01-03-2025 Glaucoma screening Dilated Retinal Exam [facility] Start: 12-24-2024 End: 12-24-2024 Patient encounter procedure 12/24/2024 9:20 AM EDT Office Visit Family [facility] [address] [place] [address] Kameron Caruso MD [address] [place], [place] [id number] 6 month follow up Family [facility] Comment on above: 6 month follow up Start: 11-28-2024 End: 02-27-2025 Comprehensive metabolic 2000 panel - Serum or Plasma COMPREHENSIVE METABOLIC PANEL Lab Routine Essential hypertension, benign Chronic kidney disease, stage 3a (HCC) Hyperlipidemia, unspecified hyperlipidemia type Expected: 11/28/2024 (Approximate), Expires: 02/27/2025 [facility] Work Phone: Comment on above: Expected: 11/28/2024 (Approximate), Expi res: 02/27/2025 Start: 11-28-2024 End: 02-27-2025 Hemoglobin A1c in Blood HEMOGLOBIN A1C Lab Routine Expected: 11/28/2024 (Approximate), Expires: 02/27/2025 [facility] Comment on above: Expected: 11/28/2024 (Approximate), Expi res: 02/27/2025 Start: 11-28-2024 End: 02-27-2025 Lipid 1996 panel - Serum or Plasma LIPID PANEL BASIC Lab Routine Essential hypertension, benign Hyperlipidemia, unspecified hyperlipidemia type Expected: 11/28/2024 (Approximate), Expires: 02/27/2025 [facility] Comment on above: Expected: 11/28/2024 (Approximate), Expi res: 02/27/2025 Start: 11-28-2024 End: 02-27-2025 Thyrotropin [Units/volume] in Serum or Plasma THYROID STIMULATING HORMONE Lab Routine Hypothyroidism, unspecified type Expected: 11/28/2024 (Approximate), Expires: 02/27/2025 [facility] Comment on above: Expected: 11/28/2024 (Approximate), Expi res: 02/27/2025 Start: 11-27-2024 Annual PCP Team Chronic Disease Visit Annual PCP Team Chronic Disease Visit [facility] Start: 11-27-2024 Anxiety Screening Anxiety Screening [facility] Start: 11-27-2024 Depression Screening Depression Screening [facility] Start: 11-27-2024 RSV Vaccine (1 - 1-dose 60+ series) RSV Vaccine (1 - 1-dose 60+ series) [facility] Comment on above: Postponed from 2004 (Declined at t his time) Start: 11-27-2024 RSV Vaccine (1 - 1-dose 75+ series) RSV Vaccine (1 - 1-dose 75+ series) [facility] Comment on above: Postponed from 10/26/2019 (Declined at t his time) Start: 11-26-2024 Creatinine measurement Serum Creatinine [facility] Start: 11-26-2024 Hepatitis B surface antibody level LDL Cholesterol [facility] Start: 11-20-2024 Hemoglobin A1c measurement HbA1C [facility] Start: 11-11-2024 Influenza vaccination Influenza Vaccine (#1) [facility] Comment on above: Postponed from 01/14/2024 (Declined at t his time) Start: 10-08-2024 End: 10-08-2024 ambulatory [facility] Start: 10-02-2024 Evaluation of diagnostic study results 12 Lead EKG performed by BMS [facility] Start: 08-02-2024 [facility] Start: 08-02-2024 SARS-CoV-2, Influenza & RSV (PCR) SARS-CoV-2, Influenza & RSV (PCR) [facility] Start: 08-02-2024 End: 08-02-2024 [facility] Start: 08-02-2024 Electrocardiographic procedure [facility] Start: 08-02-2024 Oxygen therapy [facility] Start: 07-24-2024 End: 10-23-2024 Thyrotropin [Units/volume] in Serum or Plasma THYROID STIMULATING HORMONE Lab Routine Hypothyroidism, unspecified type Expected: 07/24/2024, Expires: 10/23/2024 [facility] Work Phone: Comment on above: Expected: 07/24/2024, Expires: Start: 07-24-2024 End: 10-23-2024 Thyroxine (T4) free [Mass/volume] in Serum or Plasma T4 FREE/FREE THYROXINE Lab Routine Hypothyroidism, unspecified type Expected: 07/24/2024, Expires: 10/23/2024 [facility] Comment on above: Expected: 07/24/2024, Expires: Start: 06-25-2024 End: 06-25-2024 Patient encounter procedure 06/25/2024 9:40 AM EST Office Visit Family [facility] [place] [address] [place], [place] [id number] Kameron Caruso MD [address] [place], [place] [id number] 1 mo f/u, new dx afib. [facility] [place] Comment on above: 1 mo f/u, new dx afib. Start: 06-11-2024 End: 06-11-2024 Patient encounter procedure 06/11/2024 8:50 AM EST Office Visit Cardiology [address] [place], [place] [id number] Atrial fibrillation, unspecified type (HCC) [I48.91] Cardiology Comment on above: Atrial fibrillation, unspecified type (H CC) [I48.91] Start: 05-30-2024 Annual PCP Team Chronic Disease Visit Annual PCP Team Chronic Disease Visit [facility] Start: 05-30-2024 End: 08-29-2024 Comprehensive metabolic 2000 panel - Serum or Plasma COMPREHENSIVE METABOLIC PANEL Lab Routine Type 2 diabetes mellitus with diabetic chronic kidney disease, unspecified CKD stage, 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 (HCC) Essential hypertension, benign Chronic kidney disease, stage 3a (HCC) Hyperlipidemia, unspecified hyperlipidemia type Expected: 05/30/2024 (Approximate), Expires: 08/29/2024 [facility] Work Phone: Comment on above: Expected: 05/30/2024 (Approximate), Expi res: 08/29/2024 Start: 05-30-2024 Covid-19 Vaccine ( season) Covid-19 Vaccine ( season) [facility] Comment on above: Postponed from 01/13/2023 (Declined at t his time) Start: 05-30-2024 End: 08-29-2024 Hemoglobin A1c in Blood HEMOGLOBIN A1C Lab Routine Type 2 diabetes mellitus with diabetic chronic kidney disease, unspecified CKD stage, unspecified whether care home insulin use (HCC) Expected: 05/30/2024 (Approximate), Expires: 08/29/2024 [facility] Comment on above: Expected: 05/30/2024 (Approximate), Expi res: 08/29/2024 Start: 05-30-2024 Hepatitis C screening Hepatitis C Screening [facility] Comment on above: Postponed from 1962 (Declined at t his time) Start: 05-30-2024 End: 08-29-2024 Lipid 1996 panel - Serum or Plasma LIPID PANEL BASIC Lab Routine Type 2 diabetes mellitus with diabetic chronic kidney disease, unspecified CKD stage, 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 (HCC) Essential hypertension, benign Hyperlipidemia, unspecified hyperlipidemia type Expected: 05/30/2024 (Approximate), Expires: 08/29/2024 [facility] Comment on above: Expected: 05/30/2024 (Approximate), Expi res: 08/29/2024 Start: 05-30-2024 End: 08-29-2024 Microalbumin/Creatinine [Mass Ratio] in Urine ALBUMIN/CREATININE RATIO, URINE Lab Routine Type 2 diabetes mellitus with diabetic chronic kidney disease, unspecified CKD stage, unspecified whether care home insulin use (HCC) Expected: 05/30/2024 (Approximate), Expires: 08/29/2024 [facility] Comment on above: Expected: 05/30/2024 (Approximate), Expi res: 08/29/2024 Start: 05-30-2024 Pneumococcal Vaccine: 65+ (2 of 2 - PPSV23 or PCV20) Pneumococcal Vaccine: 65+ (2 of 2 - PPSV23 or PCV20) [facility] Comment on above: Postponed from 12/19/2019 (Declined at t his time) Start: 05-30-2024 End: 08-29-2024 Thyrotropin [Units/volume] in Serum or Plasma THYROID STIMULATING HORMONE Lab Routine Hypothyroidism, unspecified type Expected: 05/30/2024 (Approximate), Expires: 08/29/2024 [facility] Comment on above: Expected: 05/30/2024 (Approximate), Expi res: 08/29/2024 Start: 05-30-2024 End: 05-30-2024 Patient encounter procedure 05/30/2024 9:40 AM EST Office Visit Family [facility] [address] [place] [id number] Kameron Caruso MD [address] [place] [id number] 6 mo f/u Family [facility] Comment on above: 6 mo f/u Start: 05-29-2024 Hemoglobin A1c measurement HbA1C [facility] Start: 05-16-2024 Creatinine measurement Serum Creatinine [facility] Start: 05-16-2024 Hepatitis B screening Urine Albumin:Creatinine Ratio [facility] Start: 05-16-2024 Hepatitis B surface antibody level LDL Cholesterol [facility] Start: 05-15-2024 Advance Directive Discussion Advance Directive Discussion [facility] Start: 01-14-2024 Influenza vaccination [facility] Start: 01-14-2024 [facility] Start: 01-04-2024 Glaucoma screening Dilated Retinal Exam [facility] Start: 01-04-2024 Hepatitis C antibody, confirmatory test Dilated Retinal Exam [facility] Start: 11-28-2023 End: 11-28-2023 Patient encounter procedure 11/28/2023 9:40 AM EDT Office Visit Family [facility] [address] [place] [id number] Kameron Caruso MD [address] [place] [id number] 6 mo follow up Family [facility] Comment on above: 6 mo follow up Start: 11-26-2023 ANNUAL PCP TEAM CHRONIC DISEASE VISIT ANNUAL PCP TEAM CHRONIC DISEASE VISIT [facility] Start: 11-26-2023 BP CONTROLLED (<130/80) BP CONTROLLED (<130/80) [facility] Start: 11-23-2023 Complete blood count Hemoglobin/Hematocrit [facility] Start: 11-23-2023 HEMOGLOBIN/HEMATOCRIT HEMOGLOBIN/HEMATOCRIT [facility] Start: 11-23-2023 Hepatitis B surface antibody level LDL CHOLESTEROL [facility] Start: 11-23-2023 SERUM CREATININE SERUM CREATININE [facility] Start: 11-14-2023 Hemoglobin A1c measurement HbA[facility]C [facility] Start: 05-27-2023 ANNUAL PCP TEAM CHRONIC DISEASE VISIT ANNUAL PCP TEAM CHRONIC DISEASE VISIT [facility] Start: 05-27-2023 COVID-19 VACCINE (2 - Booster for Alyssa series) COVID-19 VACCINE (2 - Booster for Alyssa series) [facility] Comment on above: Postponed from 09/17/2020 (Declined at t his time) Start: 05-27-2023 HEPATITIS C SCREENING HEPATITIS C SCREENING [facility] Comment on above: Postponed from 1962 (Declined at t his time) Start: 05-25-2023 Hemoglobin A1c/Hemoglobin.total in Blood HBA1C [facility] Start: 05-19-2023 HEMOGLOBIN/HEMATOCRIT HEMOGLOBIN/HEMATOCRIT [facility] Start: 05-19-2023 Hepatitis B surface antibody level LDL CHOLESTEROL [facility] Start: 05-19-2023 SERUM CREATININE SERUM CREATININE [facility] Start: 05-15-2023 Advance Directive Discussion Advance Directive Discussion [facility] Start: 05-15-2023 Behavioral Health Screening Behavioral Health Screening [facility] Start: 03-02-2023 ANNUAL PCP TEAM CHRONIC DISEASE VISIT ANNUAL PCP TEAM CHRONIC DISEASE VISIT [facility] Start: 01-13-2023 Covid-19 Vaccine ( season) Covid-19 Vaccine ( season) [facility] Start: 01-13-2023 Influenza vaccination [facility] Start: 12-27-2022 Hepatitis C antibody, confirmatory test DILATED RETINAL EXAM [facility] Start: 11-24-2022 End: 01-24-2023 CBC panel - Blood by Automated count CBC Lab Routine Essential hypertension, benign Hypothyroidism, unspecified type Expected: 11/24/2022 (Approximate), Expires: 01/24/2023 [facility] Work Phone: Comment on above: Expected: 11/24/2022 (Approximate), Expi res: 01/24/2023 Start: 11-24-2022 End: 01-24-2023 Comprehensive metabolic 2000 panel - Serum or Plasma COMP METABOLIC PANEL Lab Routine Essential hypertension, benign Type 2 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, without long-term current use of insulin (HCC) Hyperlipidemia, unspecified hyperlipidemia type Expected: 11/24/2022 (Approximate), Expires: 01/24/2023 [facility] Work Phone: Comment on above: Expected: 11/24/2022 (Approximate), Expi res: 01/24/2023 Start: 11-24-2022 End: 01-24-2023 Hemoglobin A1c in Blood HGB A1C Lab Routine Type 2 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, without long-term current use of insulin (HCC) Expected: 11/24/2022 (Approximate), Expires: 01/24/2023 [facility] Work Phone: Comment on above: Expected: 11/24/2022 (Approximate), Expi res: 01/24/2023 Start: 11-24-2022 End: 01-24-2023 Lipid 1996 panel - Serum or Plasma LIPID PANEL BASIC Lab Routine Essential hypertension, benign Type 2 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, without long-term current use of insulin (HCC) Hyperlipidemia, unspecified hyperlipidemia type Expected: 11/24/2022 (Approximate), Expires: 01/24/2023 [facility] Work Phone: Comment on above: Expected: 11/24/2022 (Approximate), Expi res: 01/24/2023 Start: 11-24-2022 End: 01-24-2023 Thyrotropin [Units/volume] in Serum or Plasma TSH BLD Lab Routine Hypothyroidism, unspecified type Expected: 11/24/2022 (Approximate), Expires: 01/24/2023 [facility] Work Phone: Comment on above: Expected: 11/24/2022 (Approximate), Expi res: 01/24/2023 Start: 11-23-2022 3 comp foot exam completed DIABETIC FOOT EXAM [facility] Start: 11-23-2022 ANNUAL PCP TEAM CHRONIC DISEASE VISIT ANNUAL PCP TEAM CHRONIC DISEASE VISIT [facility] Start: 11-23-2022 Diabetic foot examination Diabetic Foot Exam [facility] Start: 11-20-2022 Hepatitis B screening URINE ALBUMIN:CREATININE RATIO [facility] Start: 11-20-2022 Hepatitis B surface antibody level LDL CHOLESTEROL [facility] [facility] Start: 11-20-2022 SERUM CREATININE SERUM CREATININE [facility] Start: 11-16-2022 Hemoglobin A1c/Hemoglobin.total in Blood HBA1C [facility] Start: 11-11-2022 Influenza vaccination INFLUENZA (#1) [facility] Comment on above: Postponed from 01/13/2022 (Declined at t his time) Start: 05-26-2022 End: 07-26-2022 CBC panel - Blood by Automated count CBC Lab Routine Essential hypertension, benign Stage 3b chronic kidney disease (HCC) Expected: 05/26/2022 (Approximate), Expires: 07/26/2022 [facility] Work Phone: Comment on above: Expected: 05/26/2022 (Approximate), Expi res: 07/26/2022 Start: 05-26-2022 End: 07-26-2022 Comprehensive metabolic 2000 panel - Serum or Plasma COMP METABOLIC PANEL Lab Routine Type 2 diabetes mellitus with diabetic chronic kidney disease, unspecified CKD stage, 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 (HCC) Essential hypertension, benign Hyperlipidemia, unspecified hyperlipidemia type Stage 3b chronic kidney disease (HCC) Expected: 05/26/2022 (Approximate), Expires: 07/26/2022 [facility] Work Phone: Comment on above: Expected: 05/26/2022 (Approximate), Expi res: 07/26/2022 Start: 05-26-2022 End: 07-26-2022 Hemoglobin A1c in Blood HGB A1C Lab Routine Type 2 diabetes mellitus with diabetic chronic kidney disease, unspecified CKD stage, 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 (HCC) Expected: 05/26/2022 (Approximate), Expires: 07/26/2022 [facility] Work Phone: Comment on above: Expected: 05/26/2022 (Approximate), Expi res: 07/26/2022 Start: 05-26-2022 End: 07-26-2022 Lipid 1996 panel - Serum or Plasma LIPID PANEL BASIC Lab Routine Essential hypertension, benign Hyperlipidemia, unspecified hyperlipidemia type Expected: 05/26/2022 (Approximate), Expires: 07/26/2022 [facility] Work Phone: Comment on above: Expected: 05/26/2022 (Approximate), Expi res: 07/26/2022 Start: 05-26-2022 End: 07-26-2022 Thyrotropin [Units/volume] in Serum or Plasma TSH BLD Lab Routine Hypothyroidism, unspecified type Expected: 05/26/2022 (Approximate), Expires: 07/26/2022 [facility] Work Phone: Comment on above: Expected: 05/26/2022 (Approximate), Expi res: 07/26/2022 Start: 05-23-2022 Hemoglobin A1c/Hemoglobin.total in Blood HBA1C [facility] Start: 05-18-2022 ANNUAL PCP TEAM CHRONIC DISEASE VISIT ANNUAL PCP TEAM CHRONIC DISEASE VISIT [facility] Start: 05-17-2022 Hepatitis B surface antibody level LDL CHOLESTEROL [facility] Start: 05-17-2022 SERUM CREATININE SERUM CREATININE [facility] Start: 05-15-2022 ADVANCE DIRECTIVE DISCUSSION ADVANCE DIRECTIVE DISCUSSION [facility] Start: 01-13-2022 Influenza vaccination [facility] Start: 01-11-2022 Hepatitis C antibody, confirmatory test DILATED RETINAL EXAM [facility] Start: 11-14-2021 Hemoglobin A1c/Hemoglobin.total in Blood HBA1C [facility] Start: 11-06-2021 Screening for malignant neoplasm of breast [facility] Start: 11-05-2021 3 comp foot exam completed DIABETIC FOOT EXAM [facility] Start: 11-05-2021 Adult depression screening assessment DEPRESSION SCREENING [facility] Start: 11-04-2021 Hepatitis B screening URINE ALBUMIN:CREATININE RATIO [facility] Start: 10-15-2021 Hepa vaccine adult dose for intramuscular use HEPATITIS A VACCINE ADULT IM Immunization/Injection Routine Need for vaccination Expected: 10/15/2021 [facility] Work Phone: Comment on above: Expected: 10/15/2021 Start: 10-15-2021 Tdap vaccine 7 yrs/> im TDAP VACCINE AGE 7+ IM Immunization/Injection Routine Need for vaccination Expected: 10/15/2021 [facility] Work Phone: Comment on above: Expected: 10/15/2021 Start: 05-15-2021 ADVANCE DIRECTIVE DISCUSSION ADVANCE DIRECTIVE DISCUSSION [facility] Start: 05-15-2021 DEPRESSION ASSESSMENT DEPRESSION ASSESSMENT [facility] Start: 10-23-2020 PNEUMOCOCCAL: 65+ (2 - PPSV23 if available, else PCV20) PNEUMOCOCCAL: 65+ (2 - PPSV23 if available, else PCV20) [facility] Start: 10-23-2020 PNEUMOCOCCAL: 65+ (2 - PPSV23 or PCV20) PNEUMOCOCCAL: 65+ (2 - PPSV23 or PCV20) [facility] Start: 10-16-2020 HEMOGLOBIN/HEMATOCRIT HEMOGLOBIN/HEMATOCRIT [facility] Start: 09-17-2020 COVID-19 VACCINE (2 - Booster for Alyssa series) COVID-19 VACCINE (2 - Booster for Alyssa series) [facility] Start: 12-19-2019 Pneumococcal vaccination [facility] Start: 12-19-2019 Pneumococcal Vaccine: 65+ (2 - PPSV23 or PCV20) Pneumococcal Vaccine: 65+ (2 - PPSV23 or PCV20) [facility] Start: 12-19-2019 PNEUMOCOCCAL: 65+ (2 - PPSV23 or PCV20) PNEUMOCOCCAL: 65+ (2 - PPSV23 or PCV20) [facility] Start: 11-08-2019 Screening for malignant neoplasm of colon [facility] Start: 10-26-2019 [facility] Start: 01-13-2019 Influenza vaccination Flu vaccine (#1) [place], [place] Start: 12-23-2018 Annual Wellness Visit (AWV) Annual Wellness Visit (AWV) [place], [place] Start: 2009 DEXA (modify frequency per FRAX score) DEXA (modify frequency per FRAX score) [place] Start: 2009 Pneumococcal 65+ years Vaccine (1 of 1 - PPSV23) Pneumococcal 65+ years Vaccine (1 of 1 - PPSV23) [place] Start: 2009 Pneumococcal 65+ years Vaccine (1 of 2 - PCV13) Pneumococcal 65+ years Vaccine (1 of 2 - PCV13) [place] Start: 10-26-2007 Annual Wellness Visit (AWV) Annual Wellness Visit (AWV) [place] Start: 2004 Hepatitis B Vaccine (1 of 3 - Risk 3-dose series) Hepatitis B Vaccine (1 of 3 - Risk 3-dose series) [facility] Start: 2004 RSV Vaccine (1 - 1-dose 60+ series) RSV Vaccine (1 - 1-dose 60+ series) [facility] Start: 10-26-1999 Screening for osteoporosis DEXA (modify frequency per FRAX score) [place], [place] Start: 1994 Breast cancer screen Breast cancer screen [place] Start: 1994 Colon cancer screen colonoscopy Colon cancer screen colonoscopy [place] Start: 1994 Screening for malignant neoplasm of breast Breast cancer screen [place] Start: 1994 Screening for malignant neoplasm of colon Colon cancer screen colonoscopy [place] Start: 1994 Shingles Vaccine (1 of 2) Shingles Vaccine (1 of 2) [place] Start: 1984 Lipid screen Lipid screen [place] Start: 1965 Screening for malignant neoplasm of cervix [facility] Start: 10-26-1963 DTaP/Tdap/Td vaccine (1 - Tdap) DTaP/Tdap/Td vaccine (1 - Tdap) [place] Start: 10-26-1963 Third diphtheria, tetanus and acellular pertussis (DTaP) vaccination [facility] Start: 10-26-1963 Urine microalbumin profile [facility] Start: 1962 BP CONTROLLED (<130/80) BP CONTROLLED (<130/80) [facility] Start: 1962 HEPATITIS C SCREENING HEPATITIS C SCREENING [facility] Start: 1954 Lipid panel Lipid screen [place], [place] Start: 1944 Creatinine measurement Creatinine monitoring [place], [place] Start: 1944 Creatinine monitoring Creatinine monitoring [place], [place] Start: 1944 Hepatitis C screen Hepatitis C screen [place], [place] Start: 1944 Hepatitis C screening [facility] Start: 1944 Potassium monitoring Potassium monitoring [place], [place] Start: 1944 Screening for osteoporosis [facility] Start: 1944 Tetanus vaccination [facility] End: 01-09-2019 Blood glucose - POCT Blood glucose - POCT Point of Care Testing Routine One Time for 1 Occurrences starting 01/09/2019 until 01/09/2019 [place] Comment on above: One Time for 1 Occurrences starting 12/14 until 01/09/2019 ECG COMPLETE [facility] Comment on above: Ordered: 05/31/2024 End: 05-31-2025 Echocardiography ECHO Cardiology Routine Atrial fibrillation, unspecified type (HCC) 1 Occurrences starting 05/31/2024 until 05/31/2025 [facility] Comment on above: 1 Occurrences starting 05/31/2024 until 05/31/2025 Patient referral [facility] Work Phone: End: 01-09-2019 Pulse Oximetry Spot Check Pulse Oximetry Spot Check Respiratory Care Routine One Time for 1 Occurrences starting 01/09/2019 until 01/09/2019 [place] Comment on above: One Time for 1 Occurrences starting 12/14 until 01/09/2019 End: 08-02-2024 PV FLUOROSCOPY OR [facility] End: 08-02-2024 Standard ECG [facility] Immunizations Immunization Date Immunization Notes Care Provider Fa sonya 07-23-2020 SARS-CoV-2 (COVID-19 ) Ad26 vaccine, recombinant SILVINO PEARL DO Tyler Garcia Comment on above: Result Comment: 2024: [id number] 02-27-2020 influenza, high dose seasonal, preservative-free Kameron Caruso MD Work Phone: [facility] 02-27-2020 influenza virus vaccine, unspecified formulation Kameron Caruso MD Work Phone: [facility] 10-24-2019 pneumococcal conjuga te vaccine, 13 valent Kameron Caruso MD Work Phone: [facility] 10-24-2019 zoster vaccine recombinant Kameron Caruso MD Work Phone: [facility] 07-25-2019 influenza virus vaccine, unspecified formulation SILVINO PEARL DO [facility] 07-25-2019 influenza, seasonal, injectable Kameron Caruso MD Work Phone: [facility] 07-25-2019 zoster vaccine recombinant Kameron Caruso MD Work Phone: [facility] 04-13-2015 influenza virus vaccine, unspecified formulation SILVINO PEARL DO [facility] 05-01-2014 influenza virus vaccine, unspecified formulation SILVINO PEARL DO [facility] 05-01-2014 influenza, high dose seasonal, preservative-free Kameron Caruso MD Work Phone: [facility] 02-22-2012 influenza virus vaccine, unspecified formulation Kameron Caruso MD Work Phone: [facility] Work Phone: 03-19-2007 influenza virus vaccine, unspecified formulation Kameron Caruso MD Work Phone: [facility] Work Phone: Payers Date Payer Category Payer Medicare [id number] 2024 Unknown [id number] 2024 Self-pay 2018 Medicare [employer] RE ADVANTAGE [employer]ARE ADVANTAGE xxxxxxxxxxx 2018-Present [phone] [address] [place] [address] xxxxxxxxxxx [id number] 2018 Unknown [id number] 2013 Medicare [facility] [place] [id number] 2013-Present [phone] [address] [place] [address] O [id number] .7.3.140581.315 2013 Medicare [id number] 1.13.159.2 .[id number] 2013 Medicare (Managed Care) 1.2. [id number] .[id number] 2013 Medicare [id number] 1944 Unknown [id number] 2.16.840.1.630946.3.579.2 .627 1944 Unknown [id number] 2.16.840.1.537608.3.579.2 .732 1944 Unknown [id number] 2.16.840.1.353355.3.579.2 .594 1944 Unknown [id number] 2.16.840.1.444391.3.579.2 .594 1944 Unknown [id number] 2.16.840.1.057925.3.579.2 .627 Unknown [id number] 2.16.840.1.768819.3.579.2 .462 Unknown [id number] 2.16.840.1.431605.3.579.2 .462 Unknown [id number] 2.16.840.1.759630.3.579.2 .462 Unknown [id number] 2.16.840.1.569741.3.579.2 .462 Unknown [id number] 2.16.840.1.842048.3.579.2 .462 Unknown [id number] 2.16.840.1.421916.3.579.2 .462 Unknown [id number] 2.16840.1.243259.3.579.2 .462 Unknown [id number] 2.16840.1.450101.3.579.2 .462 Unknown [id number] 2.16.840.1.760620.3.579.2 .462 Unknown [id number] 2.840.1.007915.3.579.2 .462 Unknown [id number] 2.840.1.583820.3.579.2 .462 Unknown [id number] 2.840.1.014221.3.579.2 .462 Unknown [id number] 2.840.1.499614.3.579.2 .462 Unknown [id number] 2.840.1.138335.3.579.2 .462 Unknown [id number] 2.840.1.260552.3.579.2 .462 Unknown [id number] 2.840.1.597470.3.579.2 .462 Unknown [id number] 2.840.1.300070.3.579.2 .462 Unknown [id number] 2.840.1.690274.3.579.2 .462 Unknown [id number] 2.840.1.346114.3.579.2 .462 Unknown [id number] 2.840.1.320670.3.579.2 .462 Unknown [id number] 2.840.1.122948.3.579.2 .462 Unknown [id number] 2.840.1.731964.3.579.2 .462 Unknown [id number] 2.840.1.523105.3.579.2 .462 Unknown [id number] 2.840.1.061245.3.579.2 .462 Unknown [id number] 2.840.1.765836.3.579.2 .462 Unknown [id number] 2..840.1.979528.3.579.2 .462 Unknown [id number] 2.16.840.1.529342.3.579.2 .462 Unknown [id number] 2.16.840.1.624974.3.579.2 .462 Unknown [id number] 2.840.1.774321.3.579.2 .462 Unknown [id number] 2.840.1.632175.3.579.2 .462 Unknown [id number] 2.840.1.550566.3.579.2 .462 Unknown [id number] 2.840.1.165292.3.579.2 .462 Unknown [id number] 2.840.1.081784.3.579.2 .462 Unknown [id number] 2.840.1.046232.3.579.2 .462 Unknown [id number] 2.840.1.114410.3.579.2 .462 Unknown [id number] 2.840.1.106694.3.579.2 .462 Unknown [id number] 2.840.1.052035.3.579.2 .462 Unknown [id number] 2.840.1.123709.3.579.2 .462 Unknown [id number] 2.840.1.728312.3.579.2 .462 Unknown [id number] 2.840.1.354980.3.579.2 .462 Unknown [id number] 2.840.1.469215.3.579.2 .462 Unknown [id number] 2.840.1.639138.3.579.2 .462 Unknown [id number] 2.840.1.113278.3.579.2 .462 Social History Date Type Detail Facility Start: 01-09-2019 End: 08-02-2024 Tobacco smoking status NHIS Never smoker [facility] Start: 01-09-2019 End: 11-25-2022 Alcohol intake Never [facility] Work Phone: Start: 12-24-2018 [facility] Start: 1945 [facility] Start: 10-16-2019 Alcohol intake Lifetime non-d hortencia (finding) [place], [place] Exposure to SARS-CoV -2 (event) [facility] Start: 05-18-2021 End: 06-26-2024 Alcohol intake Current non-drinker of alcohol (finding) [facility] Start: 11-13-2021 End: 03-02-2022 Exposure to SARS-CoV-2 (event) Not sure [facility] Start: 02-02-2011 End: 03-02-2022 Tobacco use and exposure Smokeless tobacco non-user [facility] Start: 11-25-2022 End: 11-28-2023 History of Social function [facility] Work Phone: Adult Depression Screening Assessment 0 [facility] Work Phone: Start: 06-22-2005 End: 08-02-2024 Sex Female (finding) [facility] Start: 1945 Sex Assigned At Female [facility] Sexual Orientation [facility] Medical Equipment Procedure Code Equipment Code Equipment Original Text Equipment Identifier Dates [id number], [id number], [id number] Start: 11-30-2020 End: 04-08-2023 Comment on above: [...] Functional Status Room check performed Gillian anny [place] 09-09-2024 Functional Status [facility] 09-09-2024 Functional Status Skin Care Prev entative Intervention(s) heel(s)s elevated Tyler [place] 09-08-2024 Functional Status [facility] 09-08-2024 Functional Status [facility] 09-06-2024 Functional Status 11pm-7am [facility] 09-06-2024 Functional Status Antiembolism S tocking On/Re-applied bilateral knee high [facility] 09-05-2024 Functional Status Oral Care Maximum wilfred [facility] Functional Status Tyler [facility] 09-05-2024 Functional Status Done Tyler [facility] 09-04-2024 Functional Status Tyler [facility] 09-04-2024 Functional Status Tyler [facility] 09-03-2024 Functional Status NPO Status Maintained A maryamgonzalo [place] 09-03-2024 Functional Status None [facility] 09-03-2024 Functional Status [facility] 08-29-2024 Functional Status Tyler [facility] 08-29-2024 Functional Status [facility] 08-27-2024 Functional Status Orthotics, Dev ice Worn Per Schedule Yes [facility] 08-27-2024 Functional Status Tlyer [facility] 08-26-2024 Functional Status [facility] 08-23-2024 Functional Status [facility] 08-23-2024 Functional Status Breakfast Percent 25 [facility]ian [facility] 08-20-2024 Functional Status [facility] 08-19-2024 Functional Status [facility] 08-16-2024 Functional Status Single level h ome, basement laundry [facility] 08-16-2024 Functional Status Outside Stairs Rail Rail on left going up [facility] 08-15-2024 Functional Status Sensory Defici ts Speech deficit [facility] 10-14-2014 Are you deaf, or do you have serious difficulty hearing No [facility] 10-14-2014 Are you blind, or do you have serious difficulty seeing, even when wearing glasses No [facility] 10-14-2014 Do you have serious difficulty walking or climbing stairs No [facility] 10-14-2014 Do you have difficul ty dressing or bathing No [facility] 10-14-2014 Because of a physica l, mental, or emotional condition, do you have difficulty doing errands alone such as visiting a physician's office or shopping No [facility] Mental Status Date Assessment Result Facility 09-09-2024 Mental Status Does not interact Tyler stahl 09-08-2024 Mental Status Tyler Chandni jenkins 09-08-2024 Mental Status Tyler Chandni jenkins 08-02-2024 Cognitive function Awake;Alert;F ollows Commands [facility] Work Phone: 10-14-2014 Because of a physica l, mental, or emotional condition, do you have serious difficulty concentrating, remembering, or making decisions No [facility] Clinical Notes 11-03-2020 to 10-02-2024 Note Date & Type Note Facility 10-02-2024 Evaluation note Diagnosis Onset Date Resolution Acute ischemic right MCA stroke acute October 02, 2024 9:29am Essential hypertension acute 2024 9:29am Hyperlipidemia acute October 02, 2024 9:29am Paroxysmal atrial fibrillation with RVR acute October 02, 2024 9:29am [facility] Work Phone: 1([phone] 655-122004-28-2025 Note Discharge Instructions Thank you for allowing [...] 3-7 days Where:[address] [place] [address]- Additional Information: Please schedule follow up PCP appointment for after discharge from SNF, Bring discharge instructions with you Follow Up with RIMMA POWERS MD When:10/08/2024 04:00 PM EDT Where:[facility] ([address], [place]) Additional Information: Neurosurgeon The Following Activity and [...] standard right Seat cushion, 99 month(s), Tyler [id number], 09/02/24 8:22:00 EDT Transfer of Care Wound [...] depending on your insurance coverage. Check with your[employer] company about what is covered. Keeping follow-up [...] 08/04/2017 Document Revised: 05/04/2018 Document Reviewed: 08/04/2017 [employer] Patient Education 2020 [employer] Additional Information VACCINATE! IT SAVES LIVES! Members of the community who have not yet received the COVID-19 vaccine and would like to receive it can visit one of [facility] vaccine clinics. There are many vaccine clinic locations within the [facility]. For locations and available times, please visit [email or web address] It is important to note that some COVID mobile vaccine clinics are held outdoors and may be canceled in rainy or stormy conditions. To learn more about pediatric vaccinations (ages 5-11), we invite you to visit the [facility] webpage. [email or web address] learn more about the COVID-19 vaccine, we invite you to visit the CDC website for a list of frequently asked questions.https://www.cdc.gov/coronavirus/2019-ncov/vaccines/faq.html [facility] Patient Portal Access Instructions: Stay connected with your healthcare team and access your personal medical information anytime with the [employer] Patient Portal. Please follow the directions below to create your [employer] account: 1.Access the email account you provided upon registration to the hospital/physician office.2.Look for an invitation email from [facility].3.Open the email and access the invitation link: AcceptInvitation to [employer].4.Fill in the required richards to create your account. To access your account, visit [email or web address]. Click the blue button labeled "Access Patient [...] who you will allowto register on the [employer] Patient Portal for access to your information. You can also access the [facility] Patient Portal on the [employer] dahlia. Simply click on "Patient Portal" and then log into your account. If you would like to receive a full copy of your medical records, please contact the [facility] Medical Records Department by calling [phone], Monday through Monday between 8 a.m. and [...] Call your local pharmacy or go to http://bit.ly/8H8Go1s to find one close to you.3.Make use of household items: Use cat litter or old coffee grounds to dispose medications if other options arenot available. Mix your drugs with these household products, seal them in an airtight container andthrow it into the garbage. Call [facility]: [phone] to be sure your drugs can be [...] that I should contact my doctor. Patient/Section Supervisor Signature: Date/Time: Relationship to Patient: Witness Name/Signature: Date/Time: Tyler [id number] Note Discharge Instructions Thank you for allowing [...] removed or concerns arise Follow Up with KMAERON CARUSO MD When:Within 3-7 days Where:[address] [place] [address]- Additional Information: Please schedule follow up PCP appointment for after discharge from SNF, Bring discharge instructions with you Follow Up with RIMMA POWERS MD When:10/08/2024 04:00 PM EDT Where:[facility] ([address], [place]) Additional Information: Neurosurgeon The Following Activity and [...] standard right Seat cushion, 99 month(s), Tyler [id number], 09/02/24 8:22:00 EDT Transfer of Care Wound [...] depending on your insurance coverage. [facility] about [facility]. Keeping follow-up visits [...] 08/04/2017 Document Revised: 05/04/2018 Document Reviewed: 08/04/2017 [employer] Patient Education 2020 [employer] Additional Information VACCINATE! IT SAVES LIVES! Members of the community who have not yet received the COVID-19 vaccine and would like to receive it can visit one of [facility] vaccine clinics. There are many vaccine clinic locations within the [facility]. For locations and available times, please visit [email or web address] It is important to note that some COVID mobile vaccine clinics are held outdoors and may be canceled in rainy or stormy conditions. To learn more about pediatric vaccinations (ages 5-11), we invite you to visit the [facility] webpage. [email or web address]/[email or web address] [email or web address].htmlTo learn more about the COVID-19 vaccine, we invite you to visit the CDC website for a list of frequently asked questions.https://www.cdc.gov/coronavirus/2019-ncov/vaccines/faq.html [facility] [employer] Patient Portal Access Instructions: Stay connected with your healthcare team and access your personal medical information anytime with the [facility] Patient Portal. Please follow the directions below to create your [facility] account: 1.Access the email account you provided upon registration to the hospital/physician office.2.Look for an invitation email from [facility].3.Open the email and access the invitation link: AcceptInvitation to [facility] [employer].4.Fill in the required richards to create your account. To access your account, visit [employer]. Click the blue button labeled "Access Patient Portal" and then log in with the username and password that you created in the steps above. You will be able to view your test results, lab results, a summary of your visits, upcoming appointments and more. There is also a convenient messaging option where you can send secure messages to your p [employer]. In addition, you will have the ability to download any documents or summaries to your computer and/or send the information securely to a physician. Remember that your healthcare information is confidential, so carefully consider who you will allowto register on the [facility] Patient Portal for access to your information. You can also access the [facility] Patient Portal on the [facility] [employer] dahl[facility]. Simply click on "Patient Portal" and then log into your account. If you would like to receive a full copy of your medical records, please contact the [facility] Medical Records Department by calling [phone], Monday through Monday between 8 a.m. and [...] Call your local pharmacy or go to http://bit.Aprimo/[email or web address] to find one close to you.3.Make use of household items: Use cat litter or old coffee grounds to dispose medications if other options arenot available. Mix your drugs with these household products, seal them in an airtight container andthrow it into the garbage. Call [facility]: [phone] to be sure your drugs can be [...] that I should contact my doctor. Patient/Section Supervisor Signature: Date/Time: Relationship to Patient: Witness Name/Signature: Date/Time: Tyler GarciaMbyjqtqb56-34-6510 Physical medicine and rehab Discharge summary Date [...] in discharge valuation. 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 [id number] Microgram PEG tube once a day. metoprolol [...] KAMERON CARUSO MD When:Within 3-7 days Where:[address] [place] [address]- Additional Information: Please schedule follow up PCP appointment for after discharge from SNF, Bring discharge instructions with you Follow Up with RIMMA POWERS MD When:10/08/2024 04:00 PM EDT Where:[facility] ([address], [place]) Additional Information: Neurosurgeon Follow Up Appointments No qualifying data available. Follow Up Labs/Studies Discharge Labs No Follow-up Labs Discharge Studies No Follow-up Studies Discharge Diet No qualifying data available. Discharge Activity No qualifying data available. Condition on Discharge Stable Discharge Disposition detention facility Information Provided To Patient and family Time Spent Greater than 35 minutes Digitally Signed by SILVINO PEARL DO on 09/09/2024 01:46 PM [place] [id number] Nurse Progress note Nursing GG Entered On: 09/09/2024 10:55 EDT Performed On: 09/09/2024 10:55 EDT by Abigail Roads RN Nursing GG's OT GG Grid Eating : Not Completed Abigail Rodas RN - 09/09/2024 10:55 EDT Digitally Signed by Abigail Rodas RN on 09/09/2024 10:55 AM [place] [id number] Nurse Progress note Nursing GG Entered On: 09/08/2024 17:39 EDT Performed On: 09/08/2024 17:39 EDT by Rob Alarcon RN Nursing GG's OT GG Grid Eating : Not Completed Oral Hygiene : Not Completed Toilet Hygiene : Substantial/Maximal Assistance Toilet Transfer : Substantial/Maximal Assistance Rob Alarcon RN - 09/08/2024 17:39 EDT Digitally Signed by Rob Alarcon RN on 09/08/2024 05:39 [address]27-2025 Nurse Progress note Pt had 250ml residual, 12:30pm bolus was held! Digitally Signed by Rob Alarcon RN on 09/08/2024 12:47 PM [place] [address]-25-2025 Physical medicine and rehab Progress note Rehab [...] candidate. She was then transferred to a [facility] for further management. CT of [...] Rate64(SEP 05 16:46)64(SEP 05 16:46)85(SEP 05 09:40) CNT701(SEP 05 16:36)138(SEP 05 16:36)H 158(SEP 05 09:52) [...] PEARL DO on 09/06/2024 12:34 PM Tyler [id number] Hospital Discharge instructions Patient Education 09/05/2024 14:15:00 [...] depending on your insurance coverage. Check with your[employer] company about what is covered. Keeping follow-up [...] 08/04/2017 Document Revised: 05/04/2018 Document Reviewed: 08/04/2017 [employer] Patient Education 2020 [place]. Follow Up Care 08/15/2024 08:51:25 With:RIMMA POWERS MD Address: [facility] ([address], [place]) When:10/08/2024 16:00:00 Comments:Neurosurgeon With:JONNIE BANSAL MD Address: [facility] When: Unknown Comments:GI, No appointment needed until PEG is ready to be removed or concerns arise With:KAMERON CARUSO MD Address: [address] [place] [address]- When:3-7 days Comments:Please schedule follow up PCP [...] less than 3 seconds. Ongoing hemiparesis VITALS UnaczfOdpjUGUsfvoPQRuI6WCF9TkbpMh(kg) 09/05 09:5236.3--931207OH 09/05 09:40----85----RA 09/04 23:3236.6--673448CZ 09/04 21:2436.5--167294NR 09/04 16:01----72----RA 24 Hr Tmax: 36.6 at [...] tab(s), PEG, Daily, 08/15/24 17:09:00 EDT balsam Montague-castor oil topical (Venelex 788 mg-87 mg/g topical [...] None Problems (6) CVA (cerebral vascular accident) (560699766) Diabetes mellitus (111084300) Dysphagia (34712006) Hyperlipidemia (23122112) Hypertension (3137769807) Osteoarthritis (4781673634) ASSESSMENT/PLAN: Right basal ganglia hemorrhage, status post [...] CATHERINE DUEÑAS on 09/05/2024 04:55 PM Tyler GarciaPfxnutcr03-33-3971 Physical medicine and rehab Progress note Subjective [...] area Neuro: Left upper extremity hemiparesis VITALS VpabfwTawaGOPwrdpKIKjJ3GFB6GjqgBa(kg) 09/04 23:3236.6--407358FU 09/04 21:2436.5--733833LH 09/04 16:01----72----RA 09/04 12:10--------97RA 09/04 10:5435.9--447184KI 24 Hr Tmax: 36.6 at 09/04 23:32 [...] tab(s), PEG, Daily, 08/15/24 17:09:00 EDT balsam Montague-castor oil topical (Venelex 788 mg-87 mg/g topical [...] (mmHg) < 110, 1st dose location: [facility], , 08/15/24 17:09:00 EDT Active PRN [...] minutes, REPEAT x1., 1st dose location: [facility], 0, 08/15/24 1... glucose (Dextrose 50% [...] None Problems (6) CVA (cerebral vascular accident) (859916541) Diabetes mellitus (217710646) Dysphagia (45958064) Hyperlipidemia (40395536) Hypertension (8997588278) Osteoarthritis (4116807754) ASSESSMENT/PLAN: Acute right basal ganglia hemorrhage with [...] HUTTON DO on 09/05/2024 10:12 AM Tyler Cnxaaqgr82-98-2463 Physical medicine and rehab Progress note Rehab [...] candidate. She was then transferred to a [facility] for further management. CT of [...] Rate64(SEP 03 15:52)64(SEP 03 15:52)90(SEP 03 08:28) YMW301(SEP 04 05:38)112(SEP 04 05:38)127(SEP 03 08:00) DBP70(SEP [...] PEARL DO on 09/04/2024 11:55 AM Tyler GarciaDmahptbb38-59-5373 Note Subjective Patient states she is doing [...] area Neuro: Left upper extremity hemiparesis VITALS BplbvbKuxrHJAirayDTZtA8RWG7WrijSk(kg) 09/03 21:4136.4--648484EZ 09/03 15:52----64---- 09/03 08:46 09/03 08:28----90---- 09/03 08:0036.4--214432RR 24 Hr Tmax: 36.4 at 09/03 21:41 [...] tab(s), PEG, Daily, 08/15/24 17:09:00 EDT balsam Montague-castor oil topical (Venelex 788 mg-87 mg/g topical [...] (mmHg) < 110, 1st dose location: [facility], 1, 08/15/24 17:09:00 EDT oxybutynin (oxybutynin [...] minutes, REPEAT x1., 1st dose location: [facility], 0, 08/15/24 1... glucose (Dextrose 50% [...] None Problems (6) CVA (cerebral vascular accident) (316004502) Diabetes mellitus (786730586) Dysphagia (06125765) Hyperlipidemia (76434834) Hypertension (9918041640) Osteoarthritis (0151946419) ASSESSMENT/PLAN: Acute right basal ganglia hemorrhage with [...] HUTTON DO on 09/05/2024 08:57 AM Tyler GarciaIqhdkwig69-38-2886 Note Subjective Patient states that she is [...] area Neuro: Left upper extremity hemiparesis VITALS HryjgbBrjtAIDcppvEMVyX3FAQ5NhwmUm(kg) 09/03 00:2636.3--157772TR 09/02 21:5136.2--454311TY 09/02 16:56----88--98RA 09/02 10:40 RA 09/02 09:0936.0--237540MY 24 Hr Tmax: 37.0 at 09/02 05:55 [...] (mmHg) < 110, 1st dose location: [facility], 1, 08/15/24 17:09:00 EDT oxybutynin (oxybutynin [...] None Problems (6) CVA (cerebral vascular accident) (571779503) Diabetes mellitus (165674378) Dysphagia (05521326) Hyperlipidemia (16165502) Hypertension (6538970767) Osteoarthritis (5965768260) ASSESSMENT/PLAN: Acute right basal ganglia hemorrhage with [...] the presence of Dr. Hutton. I, Dr. uHtton, personally performed the services described in this documentation, as scribed byJhonatan RN in my presence and it is both accurate and complete. Digitally Signed by NANDO HUTTON DO on 09/05/2024 08:57 AM [facility]37[facility] Note* Exam Date Time Procedure Performing Provider Status 09/02/24 2:[address] Head or Brain w/o Contrast Brenda MCCLELLAN MD; Auth (Verified) [id number] ORIGINAL HISTORY: Lethargy COMPARISON: No TECHNIQUE: Routine [...] 09/02/2024 3:10:44 PM Ordering Provider: SILVINO Scott [id number] Telephone encounter Note* Telephone Encounter - Fouzia Miller LPN - 08/30/2024 10:09 AM EDT Marya Scott [facility] notified. [facility]04-18-2025 Miscellaneous Notes* Telephone Encounter - Fouzia Miller LPN - 08/30/2024 10:09 AM EDT Marya Scott [facility] notified. * Telephone Encounter - Mj Glover APRN.CNP - 08/30/2024 9:19 AM EDT Please let know that Dr. Caruso's team will follow orders. Okay to proceed. Mj Glover APRN.CNP * Telephone Encounter - Jaiden Paulino RN - 08/30/2024 9:07 AM EDT [facility] reports patient was in [facility] with dx: stroke, and transferred to [facility]. Pt will be discharged from [facility] on 09/07/24 to home with [facility]. Asking if pcp agreeable to follow for HHC. Please phone Marya with verbal: [phone] documented in this [facility] Telephone encounter Note * Telephone Encounter - Mj Glover APRN.CNP - 08/30/2024 9:19 AM EDT Please let know that Dr. Caruso's team will follow HH orders. Okay to proceed. Mj Glover APRN.CNP [facility]04-18-2025 Telephone encounter Note* Telephone Encounter - Jaiden Paulino RN - 08/30/2024 9:07 AM EDT [facility] reports patient was in [facility] with dx: stroke, and transferred to [facility]. [facility] with [facility]. Asking if pcp agreeable to follow for HHC. Please phone Marya with verbal: [phone] [facility]04-14-2025 Note REFERRING PHYSICIAN: Silvino Pearl DO. CONSULTING PSYCHOLOGIST: Matthew Gibson, PhD. REASON FOR REFERRAL: Neuropsychological exam. HISTORY OF PRESENT ILLNESS: Ms. Acuna is a 78-year-old right-handed white female admitted to [facility] from [facility] on 08/15/2024 after developing left-sided weakness [...] mild concussions suffered after a career in [employer]. No residual deficits reported. No other TELEHEALTH NURSE EDUCATOR injuries or illnesses. MENTAL HEALTH HISTORY: No [...] of NPO. and Mrs. Acuna live in [place]. 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 She has a high school diploma from her hometown in [place], [place]. TEST RESULTS: I used the Cognistat, [...] be determined. MATTHEW GIBSON, PhD LESLIE/SHANNON JOB#: [id number] DICTATION ID#: [id number] Digitally Signed by MATTHEW GIBSON PhD on 08/27/2024 08:21 AM [facility]Zkgtnekq[facility]-45-0899 Note* Exam Date Time Procedure Performing Provider Status 08/25/24 1:46 PM XR Hand and Wrist 6 Views Left Buck LAY DO; Auth (Verified) [id number] ORIGINAL EXAMINATION: 3 XRAY VIEWS OF THE [...] 08/25/2024 2:27:26 PM Ordering Provider: JACKLYN Scott [id number] Note* Exam Date Time Procedure Performing Provider Status 08/25/24 1:45 PM XR Shoulder Minimum 2 Views Left JAMAR LAY DO; Auth (Verified) [id number] ORIGINAL EXAMINATION: TWO XRAY VIEWS OF THE [...] 08/25/2024 2:26:45 PM Ordering Provider: JACKLYN Scott [id number] Note* Exam Date Time Procedure Performing Provider Status 08/25/24 1:43 PM XR Humerus Minimum 2 Views Left ROSANNEJAMAR ; Auth (Verified) [id number] ORIGINAL EXAMINATION: TWO XRAY VIEWS OF THE [...] 08/25/2024 2:26:11 PM Ordering Provider: JACKLYN Scott [id number] Note* Exam Date Time Procedure Performing Provider Status 08/18/24 3:08 PM XR Chest 1 View Contributor_system, FUJ I; Auth (Verified) [id number] ORIGINAL EXAMINATION: ONE XRAY VIEW OF THE [...] Plan noteExtracted from: Title:Clinical Document Author:EZEQUIEL TURCIOS RN-LAMINATION OPERATOR Date:08/16/24 Acute Inpatient Rehab Histor y [...] noted to home in inpatient rehab from [facility] stay 08/02 - 08/15 who is [...] candidate. She was then transferred to a [facility] for further management. CT of [...] feedings. Patient deemed medically stable transferred to [facility] for physical and occupational [...] with spouse, first- floor set up. Primary Fire Equipment Inspector Helper: Self. Safe place to go: Yes. Lives [...] Rate80(AUG 15 20:06)80(AUG 15 20:06)80(AUG 15 20:06) PBV591(AUG 16 00:03)128(AUG 16 00:03)140(AUG 15 17:47) DBP76(AUG 16 00:03)76(AUG 16 00:03)80(AUG 15 17:47) 36hr Labs 08/15 1805 Blood Glucose, Opybxunqx942M Blood Glucose, Lfhuaqwxt740V Blood Glucose TSee Flowsheet Assessment/Plan Debility and [...] and complete. [facility] 04-04-2025 Physical medicine and rehab Consult note INPATIENT REHAB MEDICAL CONSULT DATE OF ADMISSION: 08/16/2024 CC: Acute right basal hemorrhage HISTORY OF PRESENT ILLNESS: This is a 78-year-old female admitted to [facility] from [facility] stay 08/02 [...] was deemed medically stable and transferred to [facility] for physical and occasional [...] Rate80(AUG 15 20:06)80(AUG 15 20:06)80(AUG 15 20:06) GWJ673(AUG 16 00:03)128(AUG 16 00:03)140(AUG 15 17:47) DBP76(AUG [...] reviewed. 36hr Labs / 1805 Blood Glucose, Exepetrdj102S Blood Glucose, Cfqynhgug274H Blood Glucose TSee Flowsheet ASSESSMENT AND PLAN: [...] stay at [facility] Inpatient Re[facility] Unit with the goal of [...] CATHERINE DUEÑAS on 08/17/2024 04:53 PM Tyler GarciaUyzbalmy56-55-4688 Physical medicine and rehab History and physical [...] noted to home in inpatient rehab from [facility] stay 08/02 -08/15 who is past [...] candidate. [facility] [...] feedings. Patient deemed medically stable transferred to [facility] for physical and occupational [...] with spouse, first- floor set up. Primary Fire Equipment Inspector Helper: Self. Safe place to go: Yes. Lives [...] Rate80(AUG 15 20:06)80(AUG 15 20:06)80(AUG 15 20:06) RNW427(AUG 16 00:03)128(AUG 16 00:03)140(AUG 15 17:47) DBP76(AUG 16 00:03)76(AUG 16 00:03)80(AUG 15 17:47) 36hr Labs 08/15 1805 Blood Glucose, Lgwiiftgl909I Blood Glucose, Xopvagknw643R Blood Glucose TSee Flowsheet Assessment/Plan Debility and [...] EZEQUIEL TURCIOS on 08/22/2024 05:17 AM Tyler GarciaRpnbjtxu55-19-7462 Miscellaneous Notes* Nursing Notes - Robson Steel [...] pacing over x3-5 sessions Outcome: Ongoing Problem: NUT CHOPPER - Cognition Goal: Orientation Log - Patient [...] pacing over x3-5 sessions Outcome: Ongoing Problem: NUT CHOPPER - Cognition Goal: Orientation Log - 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 - If used radio mechanic apprentice, initial PEG should be changed in 6-12 months depending on tube condition. - No plans for repeat outpatient EGD at this time based on clinical status Jonnie Mccabe MD Division of Gastroenterology, Hepatology, and Nutrition Clinical Fellow PGY-4 Pager: [phone] * Plan of Care - Manisha Cheema [...] what the specific medication was. Daughter, Keagan [phone] would be able to answer questions. Catherine [...] Progressing * Plan of Care - RIKI Gonazles - 08/06/2024 9:33 AM EDT Problem: Dysphagia Goal: MBS - Patient will participate in Modified Barium Swallow (MBS) Study to objectively assess oropharyngeal swallow function to most appropriately guide NUT CHOPPER plan of care Outcome: Met Goal: Bolus [...] readiness for diet advancement Outcome: Met Problem: NUT CHOPPER - Cognition Goal: Orientation Log - Patient [...] better assess deficits and most appropriately guide NUT CHOPPER plan of care Outcome: Met Goal: Attention: [...] of Care: 1. Diet: NPO. Advancement per team/NUT CHOPPER recommendation 2. Ordered TF: Glucerna 1.5 @ [...] readiness for diet advancement Outcome: Ongoing Problem: NUT CHOPPER - Cognition Goal: Orientation Log - Patient [...] better assess deficits and most appropriately guide NUT CHOPPER plan of care Outcome: Ongoing * Nursing [...] under emergency consent. SURGEON(S): Prema Ramos MD ORNAMENTAL METAL FABRICATOR APPRENTICE(S): None ANESTHESIA: Monitored anesthesia care DESCRIPTION OF [...] Freeclimb 70/Serjio 7 was advanced over a Owlparrotman microcatheter which was advanced over a synchro [...] - 08/02/2024 3:26 PM EDT Lindsay Acuna ([id number]) PRE OPERATIVE DIAGNOSIS Cerebral infarction due to [...] - Primary ANESTHESIOLOGIST Anesthesiologist: Tameka Ruth MD AIR BRAKES INSPECTOR: Bebo Barboza APRN-AIR BRAKES INSPECTOR SURGICAL STAFF Heel Attacher Wood: Rachell Ruffin RN Rehab Therapist: Paulina Muñiz; Radha Morales COMPLICATIONS None [...] Provider Services Address Phone Fax Patient Preferred [facility] [address] [place] [phone] -- -- Internal Comment last updated by OWEN Benavides 08/15/2024 0901 Report fax: [phone] Transport Request Mode of Transfer: [facility] Name of Discharge Transport Company: [facility] ETA: 08/15/2024 @ 1030 Patient medically stable for discharge per physician/medical team. Pt has neurology appointment scheduled. Pt/ to schedule appointment with PCP. Patient/Section Supervisor remain in agreement withthe discharge plan. [facility] Nurse Spec * OWEN Benavides - 08/14/2024 3:17 PM [...] numbersfor RN report tomorrow morning. [facility] Nurse Spec * Marybeth Ayoub - 08/14/2024 2:51 PM EDT Care Management Progress Note Transportation for discharge arranged Mode of Transfer: (P) S Name of Discharge Transport Company: (P) [facility] ETA: (P) 08/15/2024 @ 1030 Pick-up from [facility] 1032/A Destination Tyler ALVARADO [address] [facility] [address] OWEN Morrell [facility] Nurse Spec Demolition Specialist [phone] * Jazzy Aguiar - 08/14/2024 9:47 AM [...] position Mobility Assessment/Intervention: Supine to Sit Mobility Henderson Level: Supine->Sit: moderate assist (50% patient effort) Physical Assist: Supine->Sit: 2 person assist Bed Features/Set-up: Supine->Sit: Head of bed elevated, Use of bed rail Skilled Rationale: Verbal cues, Tactile cues, Hand placement, Positioning, Technique of activity Skilled Intervention/Details: Supine->Sit: Cues for technique of transfer and pt needing increased assistance for managing legs and trunk to EOB positioning Transfer Assessment/Intervention: Sit to Stand Transfer Henderson Level: Sit->Stand: moderate assist (50% patient effort) [...] hand held support Stand to Sit Transfer Henderson Level: Stand->Sit: moderate assist (50% patient effort) Physical Assist: Stand->Sit: 2 person assist Assistive Device: Stand->Sit: gait belt, hand held assist Skilled Rationale: Verbal cues, Tactile cues, Hand placement, Positioning, Controlled descent for sitting Skilled Intervention/Details: Stand->Sit: Cues for positioning with BSC and recliner, pt provided bilat hand held support and needing increased support for managing a controlled descent Bed-Chair Transfer Henderson Level: Bed<->Chair: maximum assist (25% patient effort) [...] managing L side during transfer Toilet Transfer Henderson Level: Toilet: moderate assist (50% patient effort) [...] [facility] Activity Raw Score: 11 CURRENT [facility] Activity Functional Limitation/Modifier: 70.42% Currently Impaired in [...] person, Oriented to place, Oriented to situation ("[place]" "hospital" "May" "2024" "stroke") Following Commands: Follows [...] blocking Mobility Assessment/Intervention: Supine to Sit Mobility Henderson Level: Supine->Sit: moderate assist (50% patient effort) [...] sitting) Transfer Assessment/Intervention: Sit to Stand Transfer Henderson Level: Sit->Stand: moderate assist (50% patient effort) Physical Assist: Sit->Stand: 2 person assist Assistive Device: Sit->Stand: gait belt Skilled Rationale: Arm in arm, Patellar block, Ischial assist, Facilitate anterior shift, Full extension to upright positioning/posture, Finding/maintaining midline positioning Skilled Intervention/Details: Sit->Stand: repeat cues to avoid significant L lean with improvement last standing. x1 from EOB, x2 from BSC Stand to Sit Transfer Henderson Level: Stand->Sit: moderate assist (50% patient effort) Physical Assist: Stand->Sit: 2 person assist Assistive Device: Stand->Sit: gait belt Skilled Rationale: Arm in arm, Controlled descent for sitting Skilled Intervention/Details: Stand->Sit: last trial assisted R hand to recliner arm rest and ongoing cues for wt shift to R Bed-Chair Transfer Henderson Level: Bed<->Chair: maximum assist (25% patient effort) [...] 10 Treating Therapist: Shaina Rosales PT, DPT [id number] 08/14/2024 Additional Details: PT Co-Eval/Treatment Information Co-evaluation/co-treatment [...] on the below outcome measures/assessment score(s) and NUT CHOPPER clinicaljudgment, discharge destination recommendation is: IPR Barriers to discharge home: 1:1 assist needed for IADL's including medication management and finances Supporting factors for discharge setting: Impaired swallow function limiting nutritional status andsafety with oral intake, Impaired cognitive skills limiting safety/insight Acute NUT CHOPPER Outcomes Tracking Communicate basic wants and needs?: [...] independent carry over. Strong family support. Ongoing NUT CHOPPER s indicated. Subjective information: Alert, present. SO referenced his notes from yesterday and reportedcarry over of exercises yesterday. Patient with zero recall Pain: Nonverbal indicator not present Precautions: Patient Safety Communication Prior to Visit: Nursing Lines/Tubes/Drains (Rehab Status): Telemetry, Tube feed Existing Precautions/Restrictions: fall Respiratory Status: O2 Sat (%): 96 % (08/14 0711) O2 Device: room air (08/14 0947) Acute NUT CHOPPER Goals Plan of Care by Tanja Cason NUT CHOPPER at 08/14/2024 2:42 PM Version 1 of [...] RoM to achieve technique. Outcome: Ongoing Problem: NUT CHOPPER - Cognition Goal: Orientation Log - Patient [...] next session: 08/14 - ongoing exercises, education NUT CHOPPER Outcomes: FOIS 2 Speech Language Pathologist: Tanja Cason NUT CHOPPER Time In: 836 Time Out: 904 Total Visit Time: 28 minutes Total Treatment Time (skilled, billable minutes): 28 minutes Non-billable assistance during session: na Assisted by during session: na PPE used during patient interaction: gloves Patient location/status at end of session: bed with head of bed elevated Patient alarms at end of session: none altered Needs in reach. NUT CHOPPER Evaluation and Treatment Time Speech Therapy - Individual 96943: 14 Swallowing Dysfunction Treatment 78876: 14 Upon discontinuation of Acute Care Speech [...] on the below outcome measures/assessment score(s) and NUT CHOPPER clinicaljudgment, discharge destination recommendation is: Inpatient Rehab Facility Barriers to discharge home: 1:1 assist needed for IADL's including medication management and finances Supporting factors for discharge setting: Impaired swallow function limiting nutritional status andsafety with oral intake, Impaired cognitive skills limiting safety/insight Acute NUT CHOPPER Outcomes Tracking Communicate basic wants and needs?: [...] O2 Device: room air (08/13 710) Acute NUT CHOPPER Goals Plan of Care by Tanja Cason NUT CHOPPER at 08/13/2024 11:10 AM Version 1 of [...] 10 reps this session. Outcome: Ongoing Problem: NUT CHOPPER - Cognition Goal: Orientation Log - Patient [...] considerations: Cognition Patient Instruction/Education comments: Role of NUT CHOPPER, presence and normalized frustration with cognitive-communicative impairments. Focused on memory this date and that patient does not recall education so perseverative questions are normal. Reviewed intermittent silent aspiration from MBS last weekand ongoing signs of dysphagia this session, will plan to coordinate timing for repeat instrumentalwith care team Plan for next session: 08/13 -fair NUT CHOPPER Outcomes: FOIS 2 Speech Language Pathologist: RIKI [...] of session: none altered Needs in reach. NUT CHOPPER Evaluation and Treatment Time Speech Therapy - Individual 97155: 12 Swallowing Dysfunction Treatment 46313: 13 Upon discontinuation of Acute Care Speech Therapy Services or patient discharge from the hospital this note represents the current Speech Therapy Discharge Summary * OWEN Benavides - 08/12/2024 3:21 PM EDT Placement Plan Expected Discharge Date: 08/14/2024 Referred Level of Care: IPR Barriers: Medical Readiness & Precertification Current Referrals and Status 1. [facility] started precertification today. [facility] Nurse Spec * Jazzy Aguiar - 08/12/2024 10:46 AM [...] sinkside Mobility Assessment/Intervention: Supine to Sit Mobility Henderson Level: Supine->Sit: moderate assist (50% patient effort) [...] positioning Transfer Assessment/Intervention: Sit to Stand Transfer Henderson Level: Sit->Stand: maximum assist (25% patient effort) [...] maintaining upright posture Stand to Sit Transfer Henderson Level: Stand->Sit: maximum assist (25% patient effort) Physical Assist: Stand->Sit: 2 person assist Assistive Device: Stand->Sit: gait belt, hand held assist Skilled Rationale: Verbal cues, Tactile cues, Hand placement, Positioning, Controlled descent for sitting Skilled Intervention/Details: Stand->Sit: Cues for positioning with recliner and using BUEs to help with appropriate positoining of hips in chair Bed-Chair Transfer Henderson Level: Bed<->Chair: maximum assist (25% patient effort) Physical Assist: Bed<->Chair: 2 person assist Assistive Device: Bed<->Chair: gait belt Skilled Rationale: Verbal cues, Tactile cues, Hand placement, Positioning, Technique of activity Skilled Intervention/Details: Bed<->Chair: x1 from EOB to recliner on R. Pt needing increasedsupport for managing L side and sequencing steps for appropriate positioning with recliner Outcome Score(s): CURRENT -[facility] Daily Activity Inpatient Short Form Putting on/Taking Off Lower Body Clothin - Total Assistance Bathin - A Lot of Assistance Toiletin - Total Assistance Putting on/Taking Off Upper Body Clothin - A Lot of Assistance Groomin - A Lot of Assistance Eatin - Total Assistance CURRENT [facility] Activity Raw Score: 9 CURRENT -[facility] Activity Functional Limitation/Modifier: 79.59% Currently [...] L hemiplegia. She presented to [facility] and was seen on Telestroke, NIHSS 12. [...] goal TF volume. Pt last assessed by NUT CHOPPER 08/08 with recommendations for NPO. S/p PEG [...] chips. Will also increase free water flushes. NUT CHOPPER to see pt tomorrow. Nutrition Focused Physical Exam: Nutrition Focused Physical Exam Completed?: completed Subcutaneous Fat Loss: Orbital Region (Orbital Fat Pads): WDL Cheek Region (Buccal Fat Pads): WDL Upper Arm Region (Triceps): WDL Thoracic and Lumbar Region (Ribs, Lower Back, Midaxillary Line): WDL Muscle Wasting: [place] Region (Temporalis Muscle): deferred (lac over eyebrow) [...] kg (172 lb) 06/26/24 78.9 kg (174 lb)-[facility] 05/31/24 79 kg (174 lb 2.6 oz)-[facility] 11/28/23 80.6 kg (177 lb 9.6 oz)-[facility] 09/29/23 84 kg (185 lb)-[facility] meds reviewed: Scheduled: Reviewed, includes [...] Needs: Weight Used: 61 kg (IBW) EEN: 6736-8490 kcal/day (25-30 kcal/kg) EPN: 73-92 g/day (1.2-1.5 g/kg) EFN: 1830 mL/day (30 mL/kg) or per primary team Malnutrition Statement: Does the patient meet criteria for malnutrition: No *Based on [employer] Academy and ASPEN Indicators to Diagnose Malnutrition (AAIM) criteria (2012) Tianna Murray RD, LD, [facility] Pager #[phone] * Katie Ramos, PT - 08/12/2024 10:22 [...] standing. Mobility Assessment/Intervention: Supine to Sit Mobility Henderson Level: Supine->Sit: moderate assist (50% patient effort) Physical Assist: Supine->Sit: 2 person assist Bed Features/Set-up: Supine->Sit: Head of bed elevated Skilled Rationale: Verbal cues, Tactile cues, Hand placement, Technique of activity Skilled Intervention/Details: Supine->Sit: verbal/tactile cues for instruction on transfer technique and mod A x 2 for LE and trunk management. Transfer Assessment/Intervention: Sit to Stand Transfer Henderson Level: Sit->Stand: maximum assist (25% patient effort) Physical Assist: Sit->Stand: 2 person assist Assistive Device: Sit->Stand: gait belt Skilled Rationale: Verbal cues, Tactile cues, Hand placement, Technique of activity Skilled Intervention/Details: Sit->Stand: x2 trials with verbal/tactile cues for instruction on transfer technique, hand placement, and blocking left knee. Bed-Chair Transfer Henderson Level: Bed<->Chair: maximum assist (25% patient effort) [...] Physical Therapy Discharge Summary. * Radha Gr, BONE CHAR OPERATOR-LAMINATION OPERATOR - 08/11/2024 7:15 AM EDT NEUROVASCULAR STROKE SERVICE Daily Progress Note IDENTIFYING INFORMATION Lindsay Acuna MR# [id number] 08/11/2024 HISTORY OF PRESENT ILLNESS Lindsay Acuna is a 78 y.o. female with PMH significant for CAD, HTN, HLD, T2DM, Afib (on Eliquis, although patient reports she has not been taking it) who presents with L hemiplegia, slurred speech. LKW 0915 on 08/02, later found down with slurred speech and L hemiplegia. She presented to [facility] and was seen on Telestroke, NIHSS 12. [...] 2b revascularization. INTERVAL HISTORY 08/05: [place] MBS tomorrow 08/06: Failed MBS. Increased lopressor. [...] today 08/11 -Rate controlled on metoprolol Dysphagia: -NUT CHOPPER following -NPO, DHT + TF -Failed MBS [...] Lindsay Acuna will likely be discharged to [facility] when medically ready Radha Gr, BONE CHAR OPERATOR-LAMINATION OPERATOR 08/11/2024 10:17 AM VITAL SIGNS Temp: [...] for specific therapeutic recommendations, please see the material assembler report of the speech pathologist. Examination performed [...] and neurological examinations as recorded by the OUTREACH PROFESSIONAL repeated and confirmed. I have personally reviewed [...] tooth. Blood cx unremarkable. * Radha Gr, JASIEL-LAMINATION OPERATOR - 08/10/2024 7:14 AM EDT NEUROVASCULAR STROKE SERVICE Daily Progress Note IDENTIFYING INFORMATION Lindsay Acuna MR# [id number] 08/10/2024 HISTORY OF PRESENT ILLNESS Lindsay Acuna is a 78 y.o. female with PMH significant for CAD, HTN, HLD, T2DM, Afib (on Eliquis, although patient reports she has not been taking it) who presents with L hemiplegia, slurred speech. LKW 0915 on 08/02, later found down with slurred speech and L hemiplegia. She presented to [facility] and was seen on Telestroke, NIHSS 12. [...] 2b revascularization. INTERVAL HISTORY 08/05: [place] MBS tomorrow 08/06: Failed MBS. Increased lopressor. [...] as above -Rate controlled on metoprolol Dysphagia: -NUT CHOPPER following -NPO, DHT + TF -Failed MBS [...] Lindsay Acuna will likely be discharged to [facility] when medically ready Radha Gr, JASIEL-LAMINATION OPERATOR 08/10/2024 7:14 AM VITAL SIGNS Temp: [...] for specific therapeutic recommendations, please see the material assembler report of the speech pathologist. Examination performed [...] Hepatology, and Nutrition Clinical Fellow PGY-4 Pager: [phone] For follow up questions regarding this patient 7am to 5pm, contact the IBD consults fellow or DAHLIA on youmag. [facility]--> Internal Medicine--> Gastroenterology, Hepatology, & Nutrition--> IBD Consult Service Fel Day OR IBD Consult Service DAHLIA Day For urgent/stat calls or new consults 5pm to 7am or all day on the weekend, please page the on-callGI fellow on Health [employer]ill[employer]. [facility]--> Internal Medicine--> Gastroenterology, Hepatology, & Nutrition--> 1st Call Fel Miriam OR STAT/NEW GI Cons Wknd Day Cosigned by Niru Koch MD at 08/10/2024 2:11 PM EDT * OWEN Benavides - 08/09/2024 3:34 PM EDT Placement Plan Expected Discharge Date: Referred Level of Care: IPR Barriers: Medical Readiness and Precertification Current Referrals and Status 1. [facility]-accepted [facility] will start precertification on Monday after updated therapy notes are in. For Case Management assistance for the weekend, please contact CM for assistance as needed (8:00am-4:30pm) BASH: [phone] Maria: [phone] Johan: [phone] Ross: [phone] For Social Work assistance for the weekend, please contact for assistance as needed (8:00am - 4:30pm): BASH: [phone] Maria: [phone] Johan: [phone] Ross: [phone] * Radha Gr APRN-LAMINATION OPERATOR - 08/09/2024 8:07 AM EDT NEUROVASCULAR STROKE SERVICE Daily Progress Note IDENTIFYING INFORMATION Lindsay Acuna MR# [id number] 08/09/2024 HISTORY OF PRESENT ILLNESS Lindsay Acuna is a 78 y.o. female with PMH significant for CAD, HTN, HLD, T2DM, Afib (on Eliquis, although patient reports she has not been taking it) who presents with L hemiplegia, slurred speech. LKW 0915 on 08/02, later found down with slurred speech and L hemiplegia. She presented to [facility] and was seen on Telestroke, NIHSS 12. [...] 2b revascularization. INTERVAL HISTORY 08/05: [place] MBS tomorrow 08/06: Failed MBS. Increased lopressor. [...] as above -Rate controlled on metoprolol Dysphagia: -NUT CHOPPER following -NPO, DHT + TF -Failed MBS [...] Lindsay Acuna will likely be discharged to [facility] when medically ready Radha Gr, JASIEL-LAMINATION OPERATOR 08/09/2024 8:07 AM VITAL SIGNS Temp: [...] report. Electronically Signed By: Alissa Chun M.D., [facility] on 08/08/2024 4:14 PM XR FLUORO MODIFIED BARIUM SWALLOW WITH SPEECH Final Result IMPRESSION: 1. Inconsistent silent and sensate aspiration of thin, mildly thick/nectar, and moderately thick/honey consistencies. 2. No penetration or aspiration with pudding consistency. For additional analysis of the fluoroscopic examination for specific therapeutic recommendations, please see the material assembler report of the speech pathologist. Examination performed [...] on the below outcome measures/assessment score(s) and NUT CHOPPER clinicaljudgment, discharge destination recommendation is: Inpatient Rehab Facility Acute NUT CHOPPER Outcomes Tracking Communicate basic wants and needs?: [...] pressions and introduction to effortful swallow exercise. NUT CHOPPER provided education regarding recommendation of NPO given [...] constraints (transport arrived for pt's CT scan). NUT CHOPPER will follow as able. Subjective information: Patient upright in chair, at bedside. Agreeable to NUT CHOPPER session. Pain: General Pain Documentation (Adult, OB, [...] room air Flow (L/min): [3] 3 Acute NUT CHOPPER Goals Plan of Care by RIKI Penaloza [...] phsyiology, risks of aspiration pneumonia). Educated regarding NUT CHOPPER role in swallow rehab and future POC Plan for next session: 08/06: cog tx and dysphagia exercises NUT CHOPPER Outcomes: FOIS: 1 Speech Language Pathologist: RIKI Penaloza Time In: 1310 Time Out: 1330 Total Visit Time: 20 minutes Total Treatment Time (skilled, billable minutes): 20 minutes Non-billable assistance during session: NA Assisted by during session: NA PPE used during patient interaction: gloves Patient location/status at end of session: chair Patient alarms at end of session: none altered Needs in reach. NUT CHOPPER Evaluation and Treatment Time Swallowing Dysfunction Treatment 26161: 20 Upon discontinuation of Acute Care Speech [...] feedback Mobility Assessment/Intervention: Supine to Sit Mobility Henderson Level: Supine->Sit: moderate assist (50% patient effort) Physical Assist: Supine->Sit: 2 person assist Bed Features/Set-up: Supine->Sit: Use of bed rail, Head of bed elevated Skilled Rationale: Sequencing, Verbal cues, Hand placement, Positioning Skilled Intervention/Details: Supine->Sit: increased time/cues Transfer Assessment/Intervention: Sit to Stand Transfer Henderson Level: Sit->Stand: moderate assist (50% patient effort) Physical Assist: Sit->Stand: 2 person assist Assistive Device: Sit->Stand: gait belt, hand held assist Skilled Rationale: Positioning, Sequencing, Hand placement, Verbal cues Skilled Intervention/Details: Sit->Stand: Pt educated in sit to stand transfers x 2 attempts, one from EOB and one from chair Bed-Chair Transfer Henderson Level: Bed<->Chair: maximum assist (25% patient effort) [...] positioning Mobility Assessment/Intervention: Supine to Sit Mobility Henderson Level: Supine->Sit: moderate assist (50% patient effort) [...] positioning Transfer Assessment/Intervention: Sit to Stand Transfer Henderson Level: Sit->Stand: moderate assist (50% patient effort) Physical Assist: Sit->Stand: 2 person assist Assistive Device: Sit->Stand: gait belt, hand held assist Skilled Rationale: Verbal cues, Tactile cues, Hand placement, Positioning, Technique of activity Skilled Intervention/Details: Sit->Stand: x1 from EOB, x1 from recliner. Cues for technique and assuming an upright posture once standing Stand to Sit Transfer Henderson Level: Stand->Sit: moderate assist (50% patient effort) Physical Assist: Stand->Sit: 2 person assist Assistive Device: Stand->Sit: gait belt, hand held assist Skilled Rationale: Verbal cues, Tactile cues, Hand placement, Positioning, Controlled descent for sitting Skilled Intervention/Details: Stand->Sit: Cues for positioning with recliner and using arms to help with controlled descent into chair Bed-Chair Transfer Henderson Level: Bed<->Chair: maximum assist (25% patient effort) [...] [facility] Activity Raw Score: 9 CURRENT -[facility] Activity Functional Limitation/Modifier: 79.59% Currently [...] Progress Note IDENTIFYING INFORMATION Lindsay Acuna MR# [id number] 08/08/2024 HISTORY OF PRESENT ILLNESS Lindsay Acuna is a 78 y.o. female with PMH significant for CAD, HTN, HLD, T2DM, Afib (on Eliquis, although patient reports she has not been taking it) who presents with L hemiplegia, slurred speech. LKW 0915 on 08/02, later found down with slurred speech and L hemiplegia. She presented to [facility] and was seen on Telestroke, NIHSS 12. [...] 2b revascularization. INTERVAL HISTORY 08/05: [place] [facility] tomorrow 08/06: Failed MBS. Increased lopressor. Spouse [...] as above -Rate controlled on metoprolol Dysphagia: -NUT CHOPPER following -NPO, DHT + TF -Failed MBS [...] Lindsay Acuna will likely be discharged to [facility] when medically ready Bella Cardenas, JASIEL-LAMINATION OPERATOR 08/08/2024 2:53 PM VITAL SIGNS Temp: [...] for specific therapeutic recommendations, please see the material assembler report of the speech pathologist. Examination performed [...] Status 1. [facility] notified student confirming after call with Patient's daughter that [facility] is facility of choice. Facility reserved. AVS/DAVE [...] and patient's spouse are agreeable to [facility] as facility of choice, and Gisela is agreeable to [facility] as well. Updated SW student. Simin Resendez, RN, BSN Clinical Manager Science [facility] * Chela Hannon - 08/07/2024 2:08 PM EDT Placement Plan NEW ORDER CLERK met with Patient and spouse at bedside to discuss facility choice. Spouse mentioned that [facility] was first choice, though NEW ORDER CLERK provided update that [facility] could not accept after reviewing. NEW ORDER CLERK reviewed other IPR options with Spouse, who reports that [facility] would be facility of choice. Spouse discussed with daughter Gisela via phone, who is in agreement but requestsa return call. NEW ORDER CLERK notified CCM. Chela Snyder Social Work Student Available by Secure Chat Cosigned by OWEN Keller at 08/07/2024 2:11 PM EDT * Bella Cardenas, JASIEL-LAMINATION OPERATOR - 08/07/2024 6:54 AM EDT NEUROVASCULAR STROKE SERVICE Daily Progress Note IDENTIFYING INFORMATION Lindsay Acuna MR# [id number] 08/07/2024 HISTORY OF PRESENT ILLNESS Lindsay Acuna is a 78 y.o. female with PMH significant for CAD, HTN, HLD, T2DM, Afib (on Eliquis, although patient reports she has not been taking it) who presents with L hemiplegia, slurred speech. LKW 0915 on 08/02, later found down with slurred speech and L hemiplegia. She presented to [facility] and was seen on Telestroke, NIHSS 12. [...] 2b revascularization. INTERVAL HISTORY 08/05: [place] [facility] tomorrow 08/06: Failed MBS. Increased lopressor. Spouse [...] as above -Rate controlled on metoprolol Dysphagia: -NUT CHOPPER following -NPO, DHT + TF -Failed MBS [...] Lindsay Acuna will likely be discharged to [facility] when medically ready Bella Cardenas APRN-LAMINATION OPERATOR 08/07/2024 3:06 PM VITAL SIGNS Temp: [...] for specific therapeutic recommendations, please see the material assembler report of the speech pathologist. Examination performed [...] Status 1. [facility]: Available 2. [facility]: Available 3. [facility]: Available (pending PEG or diet and their MD requested aspirin started before discharge) 4. [facility]: Available 5. [facility]: Unavailable, out of network 6. [facility] Inpatient Rehab: Unavailable, Incorrect Level of Care 7. [facility] IPR: sent Met with patient and patient's spouse, Ike, at bedside to provide choice list. Ike called patient's daughter, Gisela Acuna, to discuss as well. Gisela requested information on private pay at [facility], messaged [facility] liaison and then provided information to Gisela. Gisela requested CM sendreferral to [facility] IPR. Plan for family to review choice list FREDRICK camargo/SW team will update patient and family regarding [facility] IPR response tomorrow morning. This CM's contact information provided to Ike Acuna and Gisela Acuna for any further questions. Simin Resendez RN, BSN Clinical Manager Science [facility] * [...] minutes Mobility Assessment/Intervention: Supine to Sit Mobility Henderson Level: Supine->Sit: moderate assist (50% patient effort) Bed Features/Set-up: Supine->Sit: Head of bed elevated, Use of bed rail Skilled Rationale: Positioning, Sequencing Skilled Intervention/Details: Supine->Sit: step by step cues for sequencingg Transfer Assessment/Intervention: Sit to Stand Transfer Henderson Level: Sit->Stand: moderate assist (50% patient effort) [...] left UE during transitional movements Bed-Chair Transfer Henderson Level: Bed<->Chair: moderate assist (50% patient effort) Physical Assist: Bed<->Chair: 2 person assist Assistive Device: Bed<->Chair: gait belt, hand held assist Skilled Rationale: Positioning, Hand placement, Verbal cues, Sequencing Skilled Intervention/Details: Bed<->Chair: Pt educated in bed to BSC commode transfer x 2-3 steps with cues for LE sequencing, left LE weakness requiring intermittent blocking Gait/Functional Mobility Assessment/Intervention: Gait Assessment Henderson Level: Gait: (mod/max) Physical Assist: Gait: 2 [...] prevent buckling. Stairs Assessment/Intervention: Outcome Score(s): [facility] [...] Nimesh Balderrama [facility] - 08/06/2024 1:42 PM EDT Department of Pharmacy Admission Medication Reconciliation Note Patient: Lindsay Acuna Room/Bed: 1043/A I have reviewed the patient's home medication list with the following sources Dispense Report. The home medication list status is: complete. All changes to the home medication list have been updated in [facility]. Updated FILEMAKER DEVELOPER Med List: Prior to Admission Medications Prescriptions [...] Nimesh Balderrama [facility] Phone #: [phone] Date/Time: 08/06/2024 1:42 PM Time Spent: 10 [...] noted Mobility Assessment/Intervention: Supine to Sit Mobility Henderson Level: Supine->Sit: moderate assist (50% patient effort) [...] completion. Transfer Assessment/Intervention: Sit to Stand Transfer Henderson Level: Sit->Stand: (x 1 trial from EOB [...] and kyphotic posture. Stand to Sit Transfer Henderson Level: Stand->Sit: moderate assist (50% patient effort) Assistive Device: Stand->Sit: gait belt (Arm and arm assist.) Skilled Rationale: Cues for increased safety, Initiation and execution of task, Technique of activity, Controlled descent for sitting, Ischial assist, Arm in arm, Tactile cues, Verbal cues, Hand placement, Sequencing, Positioning Bed-Chair Transfer Henderson Level: Bed<->Chair: moderate assist (50% patient effort) [...] with left LE). Functional Mobility: Functional Mobility Henderson Level: Functional Mobility/Gait: (Moderate-max assistance) Physical Assist: [...] Occupational Therapy Discharge Summary. * Taran Traore, JASIEL-LAMINATION OPERATOR - 08/06/2024 7:49 AM EDT NEUROVASCULAR STROKE SERVICE Daily Progress Note IDENTIFYING INFORMATION Lindsay Acuna MR# [id number] 08/06/2024 HISTORY OF PRESENT ILLNESS Lindsay Acuna is a 78 y.o. female with PMH significant for CAD, HTN, HLD, T2DM, Afib (on Eliquis, although patient reports she has not been taking it) who presents with L hemiplegia, slurred speech. LKW 0915 on 08/02, later found down with slurred speech and L hemiplegia. She presented to [facility] and was seen on Telestroke, NIHSS 12. [...] 2b revascularization. INTERVAL HISTORY 08/05: [place] tomorrow 08/06: Failed MBS. Increased lopressor. [...] as above -Rate controlled on metoprolol Dysphagia: -NUT CHOPPER following -NPO, DHT + TF -Failed MBS [...] Lindsay Acuna will likely be discharged to [facility] when medically ready Taran Traore APRN-LAMINATION OPERATOR 08/06/2024 1:43 PM VITAL SIGNS Temp: [...] for specific therapeutic recommendations, please see the material assembler report of the speech pathologist. Examination performed [...] Progress Note IDENTIFYING INFORMATION Lindsay Acuna MR# [id number] 08/05/2024 HISTORY OF PRESENT ILLNESS Lindsay Acuna is a 78 y.o. female with PMH significant for CAD, HTN, HLD, T2DM, Afib (on Eliquis, although patient reports she has not been taking it) who presents with L hemiplegia, slurred speech. LKW 0915 on 08/02, later found down with slurred speech and L hemiplegia. She presented to [facility] [place] and was seen on Telestroke, NIHSS 12. [...] 2b revascularization. INTERVAL HISTORY 08/05: Transfer to [facility] tomorrow PHYSICAL EXAM Gen: awake, alert, [...] as above -Rate controlled on metoprolol Dysphagia: -NUT CHOPPER following -NPO, DHT + TF -MBS tomorrow HLD, POA: -Atorvastatin 40 mg daily CAD, POA: -Hold ASA for 7 days due to ICH T2DM, POA: -SSI regular + accuchecks CKD Stage 3A, POA: Baseline Cr 1.3 -Avoid nephrotoxins, monitor Hypothyroidism, POA: -Continue home levothyroxine 75 mcg daily Disposition: Lindsay Acuna will likely be discharged to [facility] when medically ready Taran Traore APRN-LAMINATION OPERATOR 08/05/2024 2:19 PM VITAL SIGNS Temp: [...] on the below outcome measures/assessment score(s), and NUT CHOPPER clinical judgment, discharge destination recommendation is: Pending [...] Impaired cognitive skills limiting saf ety/insight Acute NUT CHOPPER Outcomes Tracking Communicate basic wants and needs?: [...] oropharyngeal swallow function to most appropriately guide NUT CHOPPER plan of care. Of note, patient is [...] Currentdeficits impact her safety and independence. Ongoing NUT CHOPPER services are warranted. Subjective information: Awake, alert, [...] O2 Device: room air (08/05 0830) Acute NUT CHOPPER Goals Plan of Care by Queta Gardner, NUT CHOPPER at 08/05/2024 11:49 AM Version 1 of [...] oropharyngeal swallow function to most appropriately guide NUT CHOPPER plan of care Outcome: Ongoing Problem: NUT CHOPPER - Cognition Goal: Orientation Log - Patient [...] better assess deficits and most appropriately guide NUT CHOPPER plan of care Outcome: Met Tx: Noted [...] for next session: 08/05: Good candidate; FERNANDO NUT CHOPPER Outcomes: NUT CHOPPER Outcomes / Standardized Measures Score The Orientation [...] wrist restraints, RN aware Needs in reach. NUT CHOPPER Evaluation and Treatment Time Speech Therapy - Individual 94701: 8 Swallowing Dysfunction Treatment 52752: 9 Upon discontinuation of Acute Care Speech Therapy Services or patient discharge from the hospital this note represents the current Speech Therapy Discharge Summary * Chela Hannon - 08/05/2024 10:37 AM EDT Placement Plan Expected Discharge Date: TBD Referred Level of Care: IPR Barriers: medical stability, bed availability Current Referrals and Status 1. [facility]- sent; denied (Patient is OON) 2. [facility]- sent 3. [facility]- sent 4. [facility]- sent 5. [facility]- sent 6. [facility] NEW ORDER CLERK met with Patient and Spouse at bedside to discuss discharge planning. Patient and spouse were agreeable to SW visit. NEW ORDER CLERK discussed therapy recommendations with Spouse for Patient to go to [facility] at discharge. Spouse is agreeable to a referral being sent to [facility]. Referral sent. Spouse requested to speak to SW about assessing Patient for dementia. NEW ORDER CLERK and bedside RN encouragedSpouse to discuss with Patient's outpatient provider. Chela Snyder, Social Work Student Available by Secure Chat Cosigned by OWEN Keller at 08/05/2024 11:22 AM EDT * Savana Leung, RD - 08/05/2024 10:10 AM EDT NUTRITION ASSESSMENT Nutrition Recommendations and Plan of Care: 1. Diet: NPO. Advancement per team/NUT CHOPPER recommendation 2. Ordered TF: Glucerna 1.5 @ [...] time. Per team, pt failed bedside swallow. NUT CHOPPER consulted for swallow eval. Past History No [...] kg (172 lb) 06/26/24 78.9 kg (174 lb)-[facility] 05/31/24 79 kg (174 lb 2.6 oz)-[facility] 11/28/23 80.6 kg (177 lb 9.6 oz)-[facility] 09/29/23 84 kg (185 lb)-[facility] Pt without significant weight change FILEMAKER DEVELOPER. Tmax: 97.8*F BP: (!) 173/94 Pulse (Heart [...] proximal second portion of the duodenum. BM: FILEMAKER DEVELOPER Urine: 725mL Skin: Raghu Score: 13 Active Wounds: Wound Sheath Site 08/02/24 1500 Right Radial (3) Wound Abrasion 08/02/24 2109 Left;Upper Face (3) Edema- None Estimated Nutrition Needs: Based on IBW (61.4kg) Estimated Kcals Needs: 7195-8410 kcals (25-30kcals/kg) Estimated Pro Needs: 74-92g Pro (1.2-1.5g/kg) Estimated Fluid Needs: Per MD Nutrition Focused Physical Exam Completed?: completed Subcutaneous Fat Loss: Orbital Region (Orbital Fat Pads): WDL Cheek Region (Buccal Fat Pads): WDL Upper Arm Region (Triceps): WDL Thoracic and Lumbar Region (Ribs, Lower Back, Midaxillary Line): WDL Muscle Wasting: [place] Region (Temporalis Muscle): deferred (lac over eyebrow) [...] (2012) ELVIRA Ho, RD, LD, CNSC Pager: [phone] * Rashad Rg MD - 08/05/2024 9:42 AM EDT 78F admitted to the [facility] with Rt M1 occlusion s/p [...] critical care time 31min. * Shanna Russ, JASIEL-LAMINATION OPERATOR - 08/05/2024 7:20 AM EDT NEUROCRITICAL [...] Visual richards intact to confrontation. PERRL. 3mm veterinary laboratory diagnostician III, IV and : EOMI. No nystagmus. [...] aggressive pulm edema, OOB as toleratd - [id number], encourage pulmonary toileting Cards: Essential HTN HLD [...] TUBE FEEDING with meds (per DHT) - [place] Swallow Screening Result: failed=NPO Bowel regimen: - Last Bowel Movement: (prior to admission) - Senna 17.2 mg Q12H, miralax BID, suppository PRN Stress ulcer prophylaxis: - none Dysphagia - DHT placed - NUT CHOPPER following; NPO continue following, on TF - [...] not indicated DVT: subcutaneous heparin [x] Lines [place]: n/a Marina: remove Rectal tube: n/a Enteral [...] the assigned neurocritical care provider (resident, fellow, OUTREACH PROFESSIONAL, orPA) or page/call the corresponding number below NCC1 (Beds [phone]): [place] # [phone], pager #[phone] NCC2 (Beds [phone], 12 Nando, and overflow): [place] #: [phone], pager #[phone] * Florinda Velasquez, PT - 08/04/2024 1:36 [...] noted Mobility Assessment: Supine to Sit Mobility Henderson Level: Supine->Sit: moderate assist (50% patient effort) [...] EOB Transfer Assessment: Sit to Stand Transfer [place] Level: Sit->Stand: moderate assist (50% patient effort) Physical Assist: Sit->Stand: 2 person assist Assistive Device: Sit->Stand: gait belt, hand held assist Skilled Rationale: Positioning, Sequencing, Hand placement, Verbal cues Skilled Intervention/Details: Sit->Stand: x 1 from EOB Bed-Chair Transfer Henderson Level: Bed<->Chair: moderate assist (50% patient effort) [...] [facility] Mobility Raw Score: 10 CURRENT AM-[facility] Mobility Functional Limitation: 76.75% Impaired [...] Edema: Mobility Assessment: Supine to Sit Mobility [place] Level: Supine->Sit: moderate assist (50% patient effort) Physical Assist: Supine->Sit: 2 person assist Bed Features/Set-up: Supine->Sit: Head of bed elevated Skilled Rationale: Positioning, Hand placement, Verbal cues, Technique of activity Transfer Assessment: Sit to Stand Transfer [place] Level: Sit->Stand: moderate assist (50% patient effort) Physical Assist: Sit->Stand: 2 person assist Assistive Device: Sit->Stand: gait belt, hand held assist Skilled Rationale: Positioning, Hand placement, Verbal cues, Technique of activity Stand to Sit Transfer [place] Level: Stand->Sit: moderate assist (50% patient effort) Physical Assist: Stand->Sit: 2 person assist Assistive Device: Stand->Sit: hand held assist Skilled Rationale: Positioning, Hand placement, Verbal cues, Arm in arm, Controlled descent for sitting Bed-Chair Transfer [place] Level: Bed<->Chair: moderate assist (50% patient effort) [...] assessment and plan as documented by the OUTREACH PROFESSIONAL with my changes/additions added. Patient is a [...] ICH x 7 days - Statin - PT/OT/NUT CHOPPER evaluation Pulmonary: No acute issues, appears to [...] and other supportive care as per the OUTREACH PROFESSIONAL note from the same day This patient [...] [facility] the [facility] and other care providers. Management of the above was performed. My time managing this critically ill patient included review of interval history, laboratories, radiology and cons ultation reports; performing a physical examination; discussing the patient with the multi-disciplinary team and managing life sustaining therapies to prevent imminent clinical deterioration. Richard Mejia MD Neurocritical Care Attending * Balbir Mccoy, BONE CHAR OPERATOR-LAMINATION OPERATOR - 08/04/2024 7:44 AM EDT NEUROCRITICAL [...] Visual richards intact to confrontation. PERRL. 3mm veterinary laboratory diagnostician III, IV and : EOMI. No nystagmus. [...] SpO2 >92%; wean FiO2 as tolerated - IVH2LQB, encourage pulmonary toileting Cards: Essential HTN HLD [...] NPO AND TUBE FEEDING with meds (per [facility]) - [place] Swallow Screening Result: failed=NPO Bowel regimen: - Last Bowel Movement: (prior to admission) - Senna 17.2 mg Q12H, miralax at bedtime Stress ulcer prophylaxis: - none Dysphagia - DHT placed - NUT CHOPPER following - Tube feed: Vital AF with [...] the assigned neurocritical care provider (resident, fellow, OUTREACH PROFESSIONAL, orPA) or page/call the corresponding number below NCC1 (Beds [phone]): [place] # [phone], pager #[phone] NCC2 (Beds [phone], 12 Nando, and overflow): [place] #: [phone], pager #[phone] * Rafael Garcia MD - 08/03/2024 2:16 PM EDT NEUROVASCULAR Consult Daily Progress Note IDENTIFYING INFORMATION Lindsay Acuna MR# [id number] 08/03/2024 HISTORY OF PRESENT ILLNESS Lindsay Acuna is a 78 y.o. female with PMH significant for CAD, HTN, HLD, T2DM, Afib (on Eliquis, although patient reports she has not been taking it) who presents with L hemiplegia, slurred speech. She was last seen normal by her at 0915, later found down with slurred speech and L hemiplegia. She presented to [facility] and was seen on Telestroke, NIHSS 12. [...] L hemiplegia. She presented to [facility] and was seen on Telestroke, NIHSS 12. [...] workup. Delbert Kasper MD * Nohelia Oconnell, NUT CHOPPER - 08/03/2024 12:09 PM EDT Acute Care NUT CHOPPER Speech/Language/Cognitive Evaluation Best mode of Communication: spoken language (regular speech) Discharge Recommendations: Based on the below outcome measures/assessment score(s) and NUT CHOPPER clinicaljudgment, discharge destination recommendation is: (Skilled speech therapy services at next level of care) Barriers to discharge home: Cognitive impairments that impact safety and independence Supporting factors for discharge setting: Impaired swallow function limiting nutritional status andsafety with oral intake Acute NUT CHOPPER Outcomes Tracking Communicate basic wants and needs?: [...] L hemiplegia. She presented to [facility] and was seen on Telestroke,NIHSS 12. CTH [...] 0 Asthenia (A): 0 Strain (S): 0 NUT CHOPPER Outcomes / Standardized Measures Score The Orientation [...] unable to respond. Total Score: 12 Acute NUT CHOPPER Goals Plan of Care by Nohelia Oconnell NUT CHOPPER at 08/03/2024 11:25 AM Version 1 of 1 Problem: Dysphagia Goal: Ongoing Assessment - Patient will participate in ongoing assessment by accepting various PO consistency trials with appropriate participation/oral acceptance and no significant respiratory complications to determine readiness for diet advancement Outcome: Ongoing Problem: NUT CHOPPER - Cognition Goal: Orientation Log - Patient [...] better assess deficits and most appropriately guide NUT CHOPPER plan of care Outcome: Ongoing Speech Language [...] of session: bed alarm Needs in reach. NUT CHOPPER Evaluation and Treatment Time Speech Eval - Sound Production W/Lang Comp and Exp 50059: 11 Swallowing Eval 30513: 10 Upon discontinuation of Acute Care Speech [...] on the below outcome measures/assessment score(s) and NUT CHOPPER clinicaljudgment, discharge destination recommendation is: Deferred to PT/OT recomendations related to mobility Current therapy frequency recommendation in acute care: Swallow Therapy Frequency: 5 times a week Acute NUT CHOPPER Outcomes Tracking Communicate basic wants and needs?: [...] L hemiplegia. She presented to [facility] and was seen on Telestroke,NIHSS 12. 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 Prior NUT CHOPPER history: No prior speech history per chart [...] and Liquids Trialed Modality Amount Ice Teaspoon, NUT CHOPPER-fed 3x Thin Teaspoon 3x Oral Phase Function [...] Patient presents with presumed pharyngeal phase impairments. [place] Swallow Screen: (administered by: ZOE) [place] Swallow Screening Screening Exclusion Criteria: none, continue with [place] Swallow Screening Cognitive Screen: Orientation: able to [...] Ok for ice chips with RN supervision. NUT CHOPPER will continue to follow for ongoing dysphagia management. Patient Education/Instruction Learners: Patient Education provided: Dysphagia recommendation risk: benefit analysis, Role of this discipline Teaching method: Verbal Education/Instruction Learner response: Needs review Learning preferences: Auditory Learning considerations: Cognition Plan for next session: 08/03: Good Prognosis, ongoing dysphagia management to determine readiness for diet advancement vs instrumental. Acute NUT CHOPPER Goals Plan of Care by RIKI Hayes at 08/03/2024 11:25 AM Version 1 of 1 Problem: Dysphagia Goal: Ongoing Assessment - Patient will participate in ongoing assessment by accepting various PO consistency trials with appropriate participation/oral acceptance and no significant respiratory complications to determine readiness for diet advancement Outcome: Ongoing Problem: NUT CHOPPER - Cognition Goal: Orientation Log - Patient [...] better assess deficits and most appropriately guide NUT CHOPPER plan of care Outcome: Ongoing Speech Language Pathologist: RIKI Hayes, BCS-S Board Certified Specialist in Swallowing and Swallowing Disorders Available via Propertybase Chat Time In: 1130 Time Out: 1151 Total Visit Time: 21 minutes Total Treatment Time (skilled, billable minutes): 21 minutes Non-billable assistance during session: none Assisted by during session: Patient's PPE used during patient interaction: gloves Patient location/status at end of session: bed with head of bed elevated Patient alarms at end of session: bed alarm Needs in reach. NUT CHOPPER Evaluation and Treatment Time Speech Eval - Sound Production W/Lang Comp and Exp 29289: 11 Swallowing Eval 06500: 10 Upon discontinuation of Acute Care Speech Therapy Services or patient discharge from the hospital this note represents the current Speech Therapy Discharge Summary * Richard Mejia MD - 08/03/2024 10:30 AM EDT I have independently seen and examined the patient on 08/03/24. I agree with the history, examination, assessment and plan as documented by the OUTREACH PROFESSIONAL with my changes/additions added. Patient is a [...] the setting of ICH - Statin - PT/OT/NUT CHOPPER evaluation Pulmonary: No acute issues, appears to [...] and other supportive care as per the OUTREACH PROFESSIONAL note from the same day This patient [...] care services to the [facility] today [facility] and other care providers. Management [...] with assistance from spouse Care Management Plan NEW ORDER CLERK met with Patient and Spouse at bedside to complete Initial Assessment. They were agreeable to SW visit. Patient was lethargic though able to answer some short questions. Patient consented to Spouse assisting with assessment. Spouse/Patient report that Patient has never completed a HCPOA. They expressed interest, and NEW ORDER CLERK will follow to complete document when Patient is more alert and oriented. Spouse reports himself and Patient live in a ranch-style home with strong supports from their community, including 2 neighbors that have assisted at this time. He noted that himself and Patient recently returned from a visit to [facility] for their anniversary. Spouse reports that their 2 children will be visiting soon. NEW ORDER CLERK explained SW role and offered resources. [...] Name and Contact information: Ike Acuna P: [phone] Adult Child(jj), List All Adult Children: Yes Name and Contact information: Donnlel Acuna P: [phone]; Nathen Acuna P: [phone] Would you like to add additional adult [...] for Advance Care Planning? : Patient Agreeable (NEW ORDER CLERK to follow for HCPOA completion when [...] that manages Anticoagulation?: (unspecified at this time) [facility] [address] [place] [id number] [phone] [address] Living Environment and Support System Is the patient from a facility or long-term?: No Living Environment: House ("1 bedroom ranch") Patient Caregiving Responsibilities: Self Patient-identified caregiver/support network: Family, Friends, Neighbors, Holiness Who does the patient identify as a [...] themselves at home? : Unable to assess Casing Finisher And Stuffer Does the patient or international account representative express financial concerns? : No Chela Snyder Social Work Student Available by Secure Chat Cosigned by OWEN Keller at 08/03/2024 11:20 AM EDT * Balbir Mccoy, BONE CHAR OPERATOR-LAMINATION OPERATOR - 08/03/2024 7:40 AM EDT NEUROCRITICAL [...] Visual richards intact to confrontation. PERRL. 3mm veterinary laboratory diagnostician III, IV and : EOMI. No nystagmus. [...] SpO2 >92%; wean FiO2 as tolerated - [id number], encourage pulmonary toileting Cards: Essential HTN HLD [...] - Bowel regimen: - Last Bowel Movement: (FILEMAKER DEVELOPER) - Senna, miralax Stress ulcer prophylaxis: - none Dysphagia - DHT placed - NUT CHOPPER following - Tube feed: Vital AF with [...] prophylaxis - rationale: post thrombectomy [x] Lines [place]: n/a Marina: inserted 08/02, (indication: strict I&O) [...] the assigned neurocritical care provider (resident, fellow, OUTREACH PROFESSIONAL, orPA) or page/call the corresponding number below NCC1 (Beds [phone]): [place] # [phone], pager #[phone] NCC2 (Beds 3154-2739, 12 Nando, and overflow): [place] #: [phone], pager #[phone] * Nando Caceres MD - 08/03/2024 6:00 [...] nccu Neurosurgery signing off Please page NS2 ([phone]) with questions Complexity. Hypocalcemia - Continue to [...] any questions, Name: Andreas Ga RPH Phone: [phone] Date/Time: 08/02/2024 10:57 PM * Richard Mejia MD - 08/02/2024 6:01 PM EDT I have independently seen and examined the patient on 08/02/24. I agree with the history, examination, assessment and plan as documented by the OUTREACH PROFESSIONAL with my changes/additions added. Patient is a [...] to determine stroke burden - Statin - PT/OT/NUT CHOPPER evaluation Pulmonary: No acute issues, appears to [...] stage 3a - Maintain euvolemia GI/Nutrition: - NUT CHOPPER evaluation - Bowel regimen to prevent constipation [...] and other supportive care as per the OUTREACH PROFESSIONAL note from the same day This patient [...] Neurocritical Care Attending [facility]* Niru Koch MD [...] today. Consent obtained by at bedside. - NUT CHOPPER eval: none - RD eval: none PAST [...] dependence ASSESSMENT/RECOMMENDATIONS: - primary team feels that radio mechanic apprentice enteric nutrition is warranted in s/o CVA. Patient is appropriate for endoscopic PEG placement. Consent obtained from at bedside. - we will tentatively plan for EGD for PEG placement 08/09 as add on case. See pre procedure recommendations below. For PEG: - Ancef ordered (1 gm if patient is <80 kg; 2 gm if patient is >80 kg) as "logging contractor to the procedure"). - Please make NPO [...] Hepatology, and Nutrition Clinical Fellow PGY-4 Pager: [phone] For urgent/stat calls 5pm to 7am or all day on the weekend, please page the on- call GI fellow on WebExchange. IM Consult Serv [facility] --> [facility] STAT/NEW GI consults For follow up questions regarding this patient, contact the IBD consults fellow or DAHLIA on WebAcomplichange. IM Consult Serv [facility] --> [facility] [...] and medical decisions as outlined. Need for radio mechanic apprentice non-oral enteric nutrition per primary team. We will facilitate this with planned PEG tube placement. Before placement, non-GI management of TF should be established to avoid delays. David Woods M.D. 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 Prema Ramos M.D. Account Manager Relief Department of Neurosurgery [facility] * Taran Zamudio León, BONE CHAR OPERATOR-LAMINATION OPERATOR - 08/02/2024 2:44 PM EDT Neurovascular [...] L hemiplegia. She presented to [facility] and was seen on Telestroke, NIHSS 12. [...] Scales Flowsheet Row Most Recent Value Modified Weston Scale Score Premorbid (MRSS) 0 filed on [...] solution Intravenous Continuous PRN Bebo Barboza APRN- AIR BRAKES INSPECTOR New Bag at 08/02/24 1507 Scheduled Meds: [...] protrudes midline Motor: L hemiplegia Reflexes: Coordination: [id number] intact on the R, unable to test [...] ED. Continuous telemetry -PT, OT, Speech and psychotherapist social worker consults Other problems: Complexity. Any [...] L hemiplegia. She presented to [facility] and was seen on Telestroke, NIHSS 12. [...] Delbert Kasper MD [facility]* Tanja Hunter, NUT CHOPPER - 08/06/2024 9:32 AM EDTAssociated Order(s): SPEECH [...] the below outcome measures/assessment score(s), MBS, and NUT CHOPPER clinical judgment, discharge destination recommendation is: IP Rehab Facility. Patient demonstrates good candidacy for discharge to: IRF. Additional supporting factors include: Impaired swallow functionlimiting nutritional status and safety with oral intake. Acute NUT CHOPPER Outcomes Tracking Communicate basic wants and needs?: [...] L hemiplegia. She presented to [facility] and was seen on Telestroke, NIHSS 12. [...] Thin Barium: teaspoon x2, straw x2 Varibar [place] Barium: straw x1 Varibar Thin Honey Barium: [...] recommend NPO and nonoral meds. Ongoing skilled NUT CHOPPER services indicated to address deficits and maximize [...] Therapeutic Interventions Met: yes, treatment indicated Acute NUT CHOPPER Goals Plan of Care by Tanja Hunter, NUT CHOPPER at 08/06/2024 9:33 AM Version 1 of 1 Problem: Dysphagia Goal: MBS - Patient will participate in Modified Barium Swallow (MBS) Study to objectively assess oropharyngeal swallow function to most appropriately guide NUT CHOPPER plan of care Outcome: Met Goal: Bolus [...] Treatment Time (skilled, billable minutes): 20 minutes NUT CHOPPER Evaluation and Treatment Time MBS/Motion Fluoroscopic Swallowing Eval 96013: 20 Speech Language Pathologist: RIKI Gonzales Time [...] end of session: none altered (RN present) NUT CHOPPER Evaluation and Treatment Time MBS/Motion Fluoroscopic Swallowing Eval 87849: 20 Upon discontinuation of Acute Care Speech Therapy Services or patient discharge from the hospital this note represents the current Speech Therapy Discharge Summary [facility] Discharge instructions* Discharge Instructions* Jhoana Casarez APRN-LAMINATION OPERATOR - 08/06/2024 8:38 AM EDT Please [...] you at all times. Stroke Education: visit [email or web address] What are the most common symptoms of [...] all ordered medications [x] Avoid non-prescription or fwxy-vtk-fbqxcqo medication not cleared by your physician [x] [...] may call the neurovascular doctors office at [phone], if you have questions Mon-Fri between 8:30 am and 4:30 pm. - For off hours or the weekend you may call the office or the hospital edge bander operator at and ask for the stroke resident logging contractor to be paged. - If you have any other questions or needs, please call Aniyah DOSS, RN, Stroke Nurse Navigator at [phone] Mon-Fri between 7:00am and 3:00pm. - Additional assistance may be found by reaching out to our Case Management Office at [phone]. *In the event of an Emergency: If you have a physical or psychiatric emergency call 911 or go to your local emergency department. You should also call your outpatient provider's emergency number. Other reference numbers: [facility] Intake Office at [phone]; [facility] at [phone]; or Suicide Prevention Hotline at 886-468-7735. *Helpful phone numbers: Free Crisis Hotline: 0-249-716-TALK ( ) Suicide Hotline: 347.831.3582 Seniors Suicide Hotline: 537.434.8026 [facility] Youth: 417.197.8663 Mental Health of [place]: 144.450.9930 (free counseling) [facility] Access Hotline: 089-491-HYWX (902-387-2056) 24-hour crisis text hotline: Text the word "4hope" to 705-550 for crisis support. Texting this number is [...] you may qualify for Medicaid/public assistance: The [facility] Department of Job and Family Services can now process zayas (TANF), food (SNAP) and Medicaid Applications over the phone. Please call [phone] ([phone]) and apply over the phone or apply online at www.benefits.[place].gov. Monday-Monday 8am-12pm noon. Medication Assistance Programs [employer] members can buy 100+ common prescriptions for FREE, $3 or $6. Annual membership is $36 for individuals and $72 for families (up to 6 people, including pets). Sign up online or enroll at your nearest pharmacy! FreakOut, web site can provide a significant number of coupons for medications at a much lower raymundo. [place] Department of Aging The Department of Aging administers programs and services to meet the needs of older [place]. Services and resources offered per [facility] may include transportation, housekeeping, meals and nutrition, personal care, case management, safety monitoring, home medical equipment, legal services, student financial aid manager, health and wellness, education, caregiver support, respite care, etc. Call to be connected to the [facility] agency on aging serving your community or visit aging.[place].gov/find-services. Request a consultation with a community resource expert at ltssi.age.[place].gov/ [facility] Stroke Support The [facility] Stroke Support Group is for stroke survivors, friends, and family members. Meets on the Monday of each month from 6:30pm-7:30pm at [facility] ([address]; [place] [address]). Contact Chela Nolan, at [phone] or [email or web address]. If you are outside of the [place] area, contact The [place] [employer] at www.stroke.org or 7-548-1-STROKE or for support groups in your area. You may also refer to the Your Care after a Stroke education booklet at [email or web address] for additional resources. * Medications* PATRIZIA Miner - 08/06/2024 8:38 AM EDT Know your medicines Make sure you know why you are taking each medicine. Make a master list of all your medicines. Write down the medicine names and doctors' names. Includedoses and side effects too. And write down why you take each medicine. Include all prescription tewjxww-ilt-tlltzxt medicines, vitamins, and supplements. Keep this list [...] plan your refills so that you can brain picker all your medicines at the same [...] History and physical note* Balbir Hwang Nadine, BONE CHAR OPERATOR-LAMINATION OPERATOR - 08/02/2024 6:00 PM EDT NEUROCRITICAL [...] Visual richards intact to confrontation. PERRL. 3mm veterinary laboratory diagnostician III, IV and : EOMI. No nystagmus. [...] SpO2 >92%; wean FiO2 as tolerated - TSB7MLA, encourage pulmonary toileting Cards: Essential HTN HLD [...] prophylaxis - rationale: post thrombectomy [x] Lines [place]: n/a [place]: n/a Rectal tube: n/a Enteral [...] the assigned neurocritical care provider (resident, fellow, OUTREACH PROFESSIONAL, orPA) or page/call the corresponding number below NCC1 (Beds 2362-0195): Pernell # [phone], pager #[phone] NCC2 (Beds 1798-2742, 12 Nando, and overflow): Pernell #: [phone], pager #[phone] Cosigned by Richard Mejia MD at 08/02/2024 11:14 PM EDT documented in this [facility] Nurse Note* Rachell Ruffin RN - 08/02/2024 3:13 PM EDT 9 cc air instilled in right radial TR band @ 1520. Glasses placed in bag wit label. Sent to PACU with patient on cart. documented in this encounter[facility]25 Discharge summary [facility] Medical Records Department [address] [place] [address] Emergency Department Summary 08/02/24 MR#: [id number] Acct: [id number] Name: LINDSAY ACUNA Rep #:[id number] : [...] the EMR. states they returned home from [facility] about 1.5-2 weeks ago, and they both had colds. He is better, but she is "on round 2." [facility] Medical History Paroxysmal atrial fibrillation with [...] 71.4 H Lymph % (Auto) 17.9 L Dewitt % (Auto) 8.9 Eos % (Auto) 1.0 [...] at 1250 hours. Reading Location: [facility] Head/Neck CTA 08/02/24 12:24 IMPRESSION: RIGHT CAROTID: Mild degree of calcific plaque at the origin of the right internal carotid artery. LEFT CAROTID: Mild degree of calcific plaque at the origin of the left internal carotid artery. VERTEBRALS: Dominant left vertebral artery INTRACRANIAL: Unremarkable Other impression: No significant stenosis seen. Reading Location: [place] [address] Rhythm Strip Rhythm Strip: A-fib Rate: 90 Ectopy: None EKG Initial EKG: Attestation: I personally reviewed and interpreted this EKG as follows: Interpretation: No Acute Injury Pattern, Atrial Fibrillation and Non-Specific ST Changes Management Discussion w/another healthcare provider: Airplane Rigger ([facility] stroke neurology) and Radiologist Stroke Documentation [...] min), Including time spent:, Discussing w/Patient &/or Family/Fire Equipment Inspector Helper, Discussing w/Consultants, Arranging Admission or Transfer and [...] MD [Primary Care Provider] - Print Language: Japanese Disposition Disposition: Acute Care Hospital [facility] [place] What to do if you have Problems For any increased pain, shortness of breath, bleeding, nausea or vomiting, chestpain, or any unexpected problems, contact your Primary Care Provider. Call [facility] ([phone]) or report tothe closest Emergency Room. Call 911 if necessary. 08/02/24 1316 Cosigner Signature (if applicable): CC: Dr. Kameron Caruso MD ~ Signed [facility]03-21-2025 Radiology Diagnostic study note [facility] Imaging Services [address] [place] [address] STROKE CTA Head AND Neck W/Con MR#: [id number] Acct: [id number] Name: LINDSAY ACUNA Rep #: [id number] : 1945 F 78 From: Regulo Hargrove MD PCP: Dr. Kameron Caruso MD Status: RE G ER Study:STROKE CTA Head AND Neck W/Con Date of Exam: 08/02/24 Exam# [id number] Ordering Dr: Roby Morgan MD PROCEDURE: STROKE [...] impression: No significant stenosis seen. Reading Location: [place] [address] CC: Dr. Pieter Morgan MD; Dr. Kameron Caruso MD ~ Fishing Reel Assembler: Signed [facility]03-21-2025 Radiology Diagnostic study note [facility] Imaging Services [address] [place] [address] [id number] STROKE Brain/Head without Cont MR#: [id number] Acct: [id number] Name: LINDSAY ACUNA Rep #: [id number] : 1945 F 78 From: Shira Cardoso MD PCP: Dr. Kameron Caruso MD Status: RE G ER Study:STROKE Brain/Head without Cont Date of Exam: 08/02/24 Exam# [id number] Ordering Dr: Roby Morgan MD EXAM: CT [...] at 1250 hours. Reading Location: [facility] CC: Dr. Pieter Morgan MD; Dr. Kameron Caruso MD ~ Fishing Reel Assembler: Signed [facility]02-19-2025 Telephone encounter Note* Telephone Encounter - Mj Glover APRN.CNP - 07/03/2024 12:28 PM EST The following approved medication requests have been transmitted electronically. Requested Prescriptions Signed Prescriptions Disp Refills doxycycline monohydrate (MONODOX) 100 mg capsule 56 capsule 0 Sig: Take 1 capsule by mouth two times a day for 28 days. Authorizing Provider: MJ GLOVER APRN.CNP [facility]02-19-2025 Miscellaneous Notes* Telephone Encounter - [...] calling: self Call patient at: on cell [phone] (home) [phone] (cell) Was an appointment scheduled: No Closing statement: Results or non-symptom based questions: Thank you for calling [facility], your call will be returned within the next business day. Katrina Coombs documented in this encounterMet[facility]-2025 Telephone encounter Note * Telephone [...] calling: self Call patient at: on cell [phone] (home) [phone] (cell) Was an appointment scheduled: No Closing statement: Results or non-symptom based questions: Thank you for calling [facility], your call will be returned within the next business day. Katrina Coombs [facility]02-18-2025 Telephone encounter Note* Telephone Encounter - Katia Álvarez RN - 07/02/2024 11:57 AM EST Patient calls and is requesting Cardiology referral to be faxed to [facility]. Faxed referral as requested. Katia Álvarez RN [facility]02-18-2025 Miscellaneous Notes* Telephone Encounter - Katia Álvarez RN - 07/02/2024 11:57 AM EST Patient calls and is requesting Cardiology referral to be faxed to [facility]. Faxed referral as requested. Katia Álvarez RN documented in this encounterMet[facility]25 Telephone encounter Note * Telephone Encounter - Bret Arambula LPN - 07/01/2024 12:39 PM EST Patient notified of Rx, verbalizes understanding of instructions. Bret Arambula LPN [facility]02-17-2025 Miscellaneous Notes* Telephone Encounter - [...] calling: self Call patient at: on cell [phone] (home) [phone] (cell) Was an appointment scheduled: Leslie Swanson documented in this encounterMet[facility]-2025 Telephone encounter Note * Telephone [...] 7 days. Authorizing Provider: MJ GLOVER APRN.CNP [facility]02-14-2025 Telephone encounter Note* Telephone Encounter - Adenike Walton MA - 06/28/2024 3:08 PM EST Please review pt message and advise. Adenike Walton MA [facility]02-14-2025 Telephone encounter Note* Telephone Encounter [...] calling: self Call patient at: on cell [phone] (home) [phone] (cell) Was an appointment scheduled: Leslie Swanson [facility]02-12-2025 Instructions* Patient Instructions* Emma Glasgow APRN.CNP - 06/26/2024 10:00 AM EST Recommend consult with cardiology Continue to take all medication as prescribed Get repeat thyroid labs when you get back from vacation Contact the office with preferred malaria medication Follow up in 6 months. documented in this encounterMet[facility]-12-[facility]25 History of Present illness Narrative* [...] one times daily Dx: E11.29Insulin: No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 this encounter [facility] note* Diagnosis Essential hypertension, benign- Primary Hypothyroidism, unspecified type Type 2 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, without long-term current use of insulin (HCC) Hyperlipidemia, unspecified hyperlipidemia type Chronic kidney disease, stage 3a (HCC) Edema of left lower leg Wellness examination documented in this encounter [facility] note* Diagnosis Type 2 diabetes mellitus with diabetic chronic kidney disease, unspecified CKD stage, unspecified whether care home insulin use (HCC) documented in this encounter [facility] note* Diagnosis Allergic contact dermatitis due to plant- Primary Contact dermatitis and other eczema due to plants (except food) documented in this encounter [facility] note* Diagnosis Rash- Primary Rash and other nonspecific skin eruption documented in this encounter [facility] note* Diagnosis Type 2 diabetes mellitus with diabetic chronic kidney disease, unspecified CKD stage, 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 (HCC)- Primary Essential hypertension, benign Chronic kidney disease, stage 3a (HCC) Hyperlipidemia, unspecified hyperlipidemia type Hypothyroidism, unspecified type Edema of left lower leg Memory loss documented in this encounter [facility] note* Diagnosis Essential hypertension, benign- Primary Type [...] (HCC) documented in this encounter [facility] note* Diagnosis Atrial fibrillation, unspecified type (HCC)- Primary Hypothyroidism, unspecified type Need for malaria prophylaxis documented in this encounter [facility]* Diagnosis History of traveler's diarrhea- Primary Personal history of other diseases of digestive system documented in this encounter [facility] note* Diagnosis History of traveler's diarrhea Personal history of other diseases of digestive system documented in this encounter [facility] CenterEvalus[facility] emergency department noteNo assessment information availableWMarietta Memorial Hospital Work Phone: Evaluation note* Diagnosis Acute ischemic right MCA stroke- Primary Unspecified cerebral artery occlusion with cerebral infarction Cerebrovascular accident (CVA), unspecified mechanism Renal disease (High Serum Creatinine) Unspecified disorder of kidney and ureter Type 2 diabetes mellitus with hyperglycemia Type II or unspecified type diabetes mellitus without mention of complication, not stated as uncontrolled [facility] Narrative No data available for this section [place] Reason for referral (narrative)* Outpatient Procedure (Routine) - Pending Review Specialty Diagnoses / Procedures Referred By Contteofilo t Ref[facility] Diagnoses Atrial fibrillation, unspecified type (HCC) Procedures ECHO ECHO TTHRC R-T 2D W/WOM-MODE COMPL SPEC&COLR D Kameron Caruso MD [address] [place] [address] [facility] [address] [place] [address] Referral ID Status Reason Start Date Expiration Date Visits Requested Visits Authorized [id number] Pending Review Auto-Generat ed Referral 05/31/2024 05/31/2025 1 1 * Outpatient Procedure (Routine) - New Request Specialty Diagnoses / Procedures Referred By Contteofilo t Referred To Contact [facility] Diagnoses Irregular heart beat Procedures ECG COMPLETE ECG ROUTINE ECG W/LEAST 12 LDS W/I&R Kameron Caruso MD [address] [place] [address] [facility] [place] [address] [place] [address] Referral ID Status Reason Start Date Expiration Date Visits Requested Visits Authorized [id number] New Request Auto-Generat ed Referral 05/31/2024 05/31/2025 1 1 [facility] for referral (narrative)No reason for referral information availableWMarietta Memorial Hospital Work Phone: Reason for visit Narrative* Auth/Cert Specialty Diagnoses / Procedures Referred By Contac t Referred To Contact Diagnoses Acute ischemic right MCA stroke Cerebrovascular Accident (Level A Ishemic Stroke) Prema Rodgers MD [address] [place] [address] Phone: tel: fax: [facility] [address] [place] [address] Referral ID Status Reason Start Date Expiration Date Visits Re quested Visits Authorized [id number] 1 1 [facility] Summary Purpose Family History No Family History Records Found Relationship Condition Age at Onset Recorded Date/T monse mother Diabetes mellitus Unknown Hypertension Unknown Psychiatric disorder Unknown grandmother Malignant neoplasm Unknown sister Disorder of thyroid Unknown Advance Directives No Advanced Directives Records FoundDocuments on File Type Date Recorded Patient Section Supervisor 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 Advance Directives and Living Will Power of Maintenance Painter Latest Code Status on File Code Status Date Activated Date Inactivated Comments Full Code 01/09/2019 10:16 AM Latest Code Status on File Code Status Date Activated Date Inactivated Comments Full Code 10/16/2019 9:16 AM Full Code 01/09/2019 10:16 AM 01/09/2019 2:23 PM Documents on File Type Date Recorded Patient Section Supervisor 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 Advance Directive(s) 11/07/2018 6:45 AM Advance Directive(s) 09/29/2015 10:09 PM Advance Directive Response Recorded Date/ Time Living Will No August 02, 2024 12:46pm Do you have a Healthcare Power of Maintenance Painter? No August 02, 2024 12:46pm Date [...] patient had a polyp identified by on {time:30980}. Biopsies {are/were w not:9034} taken. The patient's usual bowel pattern is {bowel pattern:02447}. Bowel movements {bowel changes:50329} . {abd pain:93431}. The patient has noted{bleeding with BM:31950}. The patient {does/do/not:45102} have a family history of colon polyps. The patient {does/do/not:87502} have a family history of colon cancer. [...] WORK September 10, 2024 5:0 0am [facility] ([facility] [place]) October 02, 2024 9:29a m Chief Complaint [...] WORK October 01, 2024 5:00a m [facility] ([facility]) October 02, 2024 9:29a m LAB WORK [...] WORK October 01, 2024 5:00a m [facility] ([facility]) October 02, 2024 9:29a m LAB WORK [...] [facility] October 01, 2024 [facility] October 02, 2024 9:29a m LAB [...] WORK October 01, 2024 5:00a m [facility] ([facility]) October 02, 2024 9:29a m LAB WORK [...] WORK October 01, 2024 5:00a m [facility] ([facility]) October 02, 2024 9:29a m LAB WORK [...] 2024 12 :07pm Chief Complaint Admit Date [facility] WORK October 22, 2024 5: [...] MONTHLY EXAM December 31, 2024 12 :07pm [facility] WORK January 07, 2025 4:00am [facility] WORK January 14 4:00am LABWORK January 21, 2025 5:00am [facility] WORK January 28 5:00am [facility] WORK February 04 5:07am Chief Complaint Admit Date [facility] WORK November 12, 2024 5:0 [...] MONTHLY EXAM December 31, 2024 12 :07pm [facility] WORK January 07, 2025 4:00am [facility] WORK January 14 4:00am LABWORK January 21, 2025 5:00am [facility] WORK January 28 5:00am [facility] WORK February 04 5:07am [facility] WORK February 11 6:03am [facility] WORK February 25, 2025 4:07am Additional Source Comments INFORMATION SOURCE (unrecogn ized section and content) DATE CREATED AUTHOR 08/31/2018 [facility] ([place]) DATE CREATED AUTHOR AUTHOR'S ORGANIZ ATION 10/18/2019 [facility] DATE CREATED AUTHOR AUTHOR'S ORGANIZ ATION 08/04/2024 [employer] DATE CREATED AUTHOR AUTHOR'S ORGANIZ ATION 08/07/2024 [facility] DATE CREATED AUTHOR AUTHOR'S ORGANIZ ATION 09/01/2024 [facility] DATE CREATED AUTHOR AUTHOR'S ORGANIZ ATION 11/08/2024 [facility] DATE CREATED AUTHOR AUTHOR'S ORGANIZ ATION 02/17/2025 [facility] DATE CREATED AUTHOR AUTHOR'S ORGANIZ ATION 03/26/2025 [facility] Source Comments (unrecognize d section and content) In the event this informatio n is protected by the Federal Confidentiality of Alcohol and Drug Abuse Patient Records regulations: The Federal rules restrict any use of the information to criminally investigate or prosecute any alcohol or drug abuse patient.[facility] CenterIn the event this information is protected by the Federal Confidentiality of Alcohol and Drug Abuse Patient Records regulations: The Federal rules restrict any use of the information to criminally investigate or prosecute any alcohol or drug abuse patient.[facility] CenterIn the event this information is protected by the Federal Confidentiality of Alcohol and Drug Abuse Patient Records regulations: The Federal rules restrict any use of the information to criminally investigate or prosecute any alcohol or drug abuse patient.[facility] CenterIn the event this information is protected by the Federal Confidentiality of Alcohol and Drug Abuse Patient Records regulations: The Federal rules restrict any use of the information to criminally investigate or prosecute any alcohol or drug abuse patient.[facility] CenterIn the event this information is protected by the Federal Confidentiality of Alcohol and Drug Abuse Patient Records regulations: The Federal rules restrict any use of the information to criminally investigate or prosecute any alcohol or drug abuse patient.[facility] CenterIn the event this information is protected by the Federal Confidentiality of Alcohol and Drug Abuse Patient Records regulations: The Federal rules restrict any use of the information to criminally investigate or prosecute any alcohol or drug abuse patient.[facility] CenterIn the event this information is protected by the Federal Confidentiality of Alcohol and Drug Abuse Patient Records regulations: The Federal rules restrict any use of the information to criminally investigate or prosecute any alcohol or drug abuse patient.[facility] CenterIn the event this information is protected by the Federal Confidentiality of Alcohol and Drug Abuse Patient Records regulations: The Federal rules restrict any use of the information to criminally investigate or prosecute any alcohol or drug abuse patient.[facility] CenterIn the event this information is protected by the Federal Confidentiality of Alcohol and Drug Abuse Patient Records regulations: The Federal rules restrict any use of the information to criminally investigate or prosecute any alcohol or drug abuse patient.[facility] CenterIn the event this information is protected by the Federal Confidentiality of Alcohol and Drug Abuse Patient Records regulations: The Federal rules restrict any use of the information to criminally investigate or prosecute any alcohol or drug abuse patient.[facility] CenterIn the event this information is protected by the Federal Confidentiality of Alcohol and Drug Abuse Patient Records regulations: The Federal rules restrict any use of the information to criminally investigate or prosecute any alcohol or drug abuse patient.[facility] CenterIn the event this information is protected by the Federal Confidentiality of Alcohol and Drug Abuse Patient Records regulations: The Federal rules restrict any use of the information to criminally investigate or prosecute any alcohol or drug abuse patient.[facility] CenterIn the event this information is protected by the Federal Confidentiality of Alcohol and Drug Abuse Patient Records regulations: The Federal rules restrict any use of the information to criminally investigate or prosecute any alcohol or drug abuse patient.[facility] CenterIn the event this information is protected by the Federal Confidentiality of Alcohol and Drug Abuse Patient Records regulations: The Federal rules restrict any use of the information to criminally investigate or prosecute any alcohol or drug abuse patient.[facility] CenterIn the event this information is protected by the Federal Confidentiality of Alcohol and Drug Abuse Patient Records regulations: The Federal rules restrict any use of the information to criminally investigate or prosecute any alcohol or drug abuse patient.[facility] CenterIn the event this information is protected by the Federal Confidentiality of Alcohol and Drug Abuse Patient Records regulations: The Federal rules restrict any use of the information to criminally investigate or prosecute any alcohol or drug abuse patient.[facility] CenterIn the event this information is protected by the Federal Confidentiality of Alcohol and Drug Abuse Patient Records regulations: The Federal rules restrict any use of the information to criminally investigate or prosecute any alcohol or drug abuse patient.[facility] CenterIn the event this information is protected by the Federal Confidentiality of Alcohol and Drug Abuse Patient Records regulations: The Federal rules restrict any use of the information to criminally investigate or prosecute any alcohol or drug abuse patient.[facility] CenterIn the event this information is protected by the Federal Confidentiality of Alcohol and Drug Abuse Patient Records regulations: The Federal rules restrict any use of the information to criminally investigate or prosecute any alcohol or drug abuse patient.[facility] CenterIn the event this information is protected by the Federal Confidentiality of Alcohol and Drug Abuse Patient Records regulations: The Federal rules restrict any use of the information to criminally investigate or prosecute any alcohol or drug abuse patient.[facility] CenterIn the event this information is protected by the Federal Confidentiality of Alcohol and Drug Abuse Patient Records regulations: The Federal rules restrict any use of the information to criminally investigate or prosecute any alcohol or drug abuse patient.[facility] CenterIn the event this information is protected by the Federal Confidentiality of Alcohol and Drug Abuse Patient Records regulations: The Federal rules restrict any use of the information to criminally investigate or prosecute any alcohol or drug abuse patient.[facility] CenterIn the event this information is protected by the Federal Confidentiality of Alcohol and Drug Abuse Patient Records regulations: The Federal rules restrict any use of the information to criminally investigate or prosecute any alcohol or drug abuse patient.[facility] CenterIn the event this information is protected by the Federal Confidentiality of Alcohol and Drug Abuse Patient Records regulations: The Federal rules restrict any use of the information to criminally investigate or prosecute any alcohol or drug abuse patient.[facility] CenterIn the event this information is protected by the Federal Confidentiality of Alcohol and Drug Abuse Patient Records regulations: The Federal rules restrict any use of the information to criminally investigate or prosecute any alcohol or drug abuse patient.[facility] CenterIn the event this information is protected by the Federal Confidentiality of Alcohol and Drug Abuse Patient Records regulations: The Federal rules restrict any use of the information to criminally investigate or prosecute any alcohol or drug abuse patient.[facility] CenterIn the event this information is protected by the Federal Confidentiality of Alcohol and Drug Abuse Patient Records regulations: The Federal rules restrict any use of the information to criminally investigate or prosecute any alcohol or drug abuse patient.[facility] CenterIn the event this information is protected by the Federal Confidentiality of Alcohol and Drug Abuse Patient Records regulations: The Federal rules restrict any use of the information to criminally investigate or prosecute any alcohol or drug abuse patient.[facility] Reason for Visit (unrecogniz ed [...] Comments request for medication Reason Comments [facility] requesting verbal agree to f ollow Care Teams (unrecognized sec tion and content) [place] Relationship Specialty Start Date End Date aKmeron Caruso MD [address] [place] [address] PCP - General Family Practice 09/21/15 [place]ounds[place] Relationship Specialty Start Date End Date Kameron Caruso MD [address] [facility] [place] [address] PCP - General Family Practice 09/21/15 [place]ounds[place] Relationship Specialty Start Date End Date Kameron Caruso MD [address] [facility] [place] [address] PCP - General Family Practice 09/21/15 [place] Relationship Specialty Start Date End Date Kameron Caruso MD [address] [facility] [place] [address] PCP - General Family Practice 09/21/15 [place] Relationship Specialty Start Date End Date Kameron Caruso MD [address] [facility] [place] [address] PCP - General Family Practice 09/21/15 [place] Relationship Specialty Start Date End Date Kmaeron Caruso MD [address] [facility] [place] [address] PCP - General Family Practice 09/21/15 [place] Relationship Specialty Start Date End Date Kameron Caruso MD [address] [facility] [place] [address] PCP - General Family Medicine 09/21/15 [place] Relationship Specialty Start Date End Date Kameron Caruso MD [address] [facility] [place] [address] PCP - General Family Medicine 09/21/15 [place]ounds[place] Relationship Specialty Start Date End Date Kameron Caruso MD [address] [facility] [place] [address] PCP - General Family Medicine 09/21/15 [place]ounds[place] Relationship Specialty Start Date End Date Kameron Caruso MD [address] [facility] [place] [address] PCP - General Family Medicine 09/21/15 [place]ounds[place] Relationship Specialty Start Date End Date Kameron Caruso MD [address] [facility] [place] [address] PCP - General Family Medicine 09/21/15 [place]ounds[place] Relationship Specialty Start Date End Date Kameron Caruso MD [address] [facility] [place] [address] PCP - General Family Medicine 09/21/15 [place] Relationship Specialty Start Date End Date Kameron Caruso MD [address] [facility] [place] [address] PCP - General Family Medicine 09/21/15 [place]ounds[place] Relationship Specialty Start Date End Date Kameron Caruso MD [address] [facility] [place] [address] PCP - General Family Medicine 09/21/15 [place]oundsman Relationship Specialty Start Date End Date Kameron Caruso MD [address] [facility] [place] [address] PCP - General Family Medicine 09/21/15 [place]ounds[place] Relationship Specialty Start Date End Date Kameron Caruso MD [address] [facility] [place] [address] PCP - General Family Medicine 09/21/15 Emma Glasgow APRN.CNP [address] [facility] [place] [address] [facility] 04/21/24 Mj Glover APRN.LAMINATION OPERATOR [address] [facility] [place] [address] [facility] 04/30/24 [place] Relationship Specialty Start Date End Date Kameron Caruso MD [address] [facility] [place] [address] PCP - General Family Medicine 09/21/15 Emma Glasgow APRN.LAMINATION OPERATOR [address] [facility] [place] [address] [facility] 04/21/24 Mj Glover APRN.LAMINATION OPERATOR [address] [facility] [place] [address] [facility] 04/30/24 [place] Relationship Specialty Start Date End Date Kameron Caruso MD [address] [facility] [place] [address] PCP - General Family Medicine 09/21/15 Emma Glasgow APRN.LAMINATION OPERATOR [address] [facility] [place] [address] [facility] 04/21/24 Mj Glover BONE CHAR OPERATOR.LAMINATION OPERATOR [address] [facility] [place] [address] [facility] 04/30/24 [place] Relationship Specialty Start Date End Date Kameron Caruso MD [address] [facility] [place] [address] PCP - General Family Medicine 09/21/15 Emma Glasgow APRN.LAMINATION OPERATOR [address] [facility] [place] [address] [facility] 04/21/24 Mj Glover APRN.LAMINATION OPERATOR [address] [place] [address] [facility] 04/30/24 [place] Relationship Specialty Start Date End Date Kameron Caruso MD [address] [place] [address] PCP - General Family Medicine 09/21/15 Emma Glasgow APRN.LAMINATION OPERATOR [address] [place] [address] [facility] 04/21/24 Mj Glover APRN.LAMINATION OPERATOR [address] [place] [address] [facility] 04/30/24 [place]ounds[place] Relationship Specialty Start Date End Date Kameron Caruso MD [address] [place] [address] PCP - General Family Medicine 09/21/15 Emma Glasgow APRN.LAMINATION OPERATOR [address] [place] [address] [facility] 04/21/24 Mj Glover APRN.LAMINATION OPERATOR [address] [place] [address] [facility] 04/30/24 [place]ounds[place] Relationship Specialty Start Date End Date Kameron Caruso MD [address] [place] [address] PCP - General Family Medicine 09/21/15 Emma Glasgow APRN.LAMINATION OPERATOR [address] [facility] [address] [facility] 04/21/24 Mj Glover APRN.LAMINATION OPERATOR [address] [facility] [place] [address] [facility] 04/30/24 Team Status: Active Member Role Status Dates Dr. Kameron Caruso MD Primary Care Provider Active Team Status: Inactive Member Role Status Dates Dr. Kameron Caruso MD Primary Care Provider Active Start: August 02, 2024 End: August 02, 2024 Dr. Pieter Morgan MD Emergency Provider Active Start: August 02, 2024 End: August 02, 2024 [place] Relationship Specialty Start Date End Date Kameron Caruso MD [address] [facility] [place] [address] PCP - General Family Medicine 08/03/24 [place] Relationship Specialty Start Date End Date Kameron Caruso MD [address] [facility] [place] [address] PCP - General Family Medicine 09/21/15 Emma Glasgow APRN.LAMINATION OPERATOR [address] [facility] [place] [address] [facility] 04/21/24 Mj Glover APRN.LAMINATION OPERATOR [address] [facility] [place] [address] [facility] 04/30/24 Team Status: Inactive Member [...] End: September 11, 2024 Bret Snyder NP, OUTREACH PROFESSIONAL-C Attending Provider Active Start: September 11, 2024 [...] 2024 End: October 09, 2024 Bret Snyder OUTREACH PROFESSIONAL, OUTREACH PROFESSIONAL-C Attending Provider Active Start: October 09, 2024 [...] Inactive Member Role/Relationship Status Dates Dr. Kameron Crauso MD Primary Care Provider Active Start: October 30, 2024 End: October 30, 2024 Bret Snyder NP OUTREACH PROFESSIONAL-C Attending Provider Active Start: October 30, 2024 [...] End: October 22, 2024 Bret Snyder NP OUTREACH PROFESSIONAL-C Attending Provider Active Start: October 22, 2024 [...] 2024 End: October 30, 2024 Bret Snyder OUTREACH PROFESSIONAL, OUTREACH PROFESSIONAL-C Attending Provider Active Start: October 30, 2024 [...] End: October 30, 2024 Bret Snyder NP OUTREACH PROFESSIONAL-C Attending Provider Active Start: October 30, 2024 [...] End: September 11, 2024 Bret Snyder NP, OUTREACH PROFESSIONAL-C Attending Provider Active Start: September 11, 2024 [...] 2024 End: October 09, 2024 Bret Snyder OUTREACH PROFESSIONAL, OUTREACH PROFESSIONAL-C Attending Provider Active Start: October 09, 2024 [...] 2024 End: October 22, 2024 Bret Snyder OUTREACH PROFESSIONAL, OUTREACH PROFESSIONAL-C Attending Provider Active Start: October 22, 2024 [...] 2024 End: November 20, 2024 Bret Snyder OUTREACH PROFESSIONAL, OUTREACH PROFESSIONAL-C Attending Provider Active Start: November 20, 2024 [...] 2024 End: November 28, 2024 Bret Snyder OUTREACH PROFESSIONAL, OUTREACH PROFESSIONAL-C Attending Provider Active Start: November 28, 2024 [...] End: October 22, 2024 Bret Snyder NP OUTREACH PROFESSIONAL-C Attending physician Active Start: October 22, 2024 [...] Inactive Member Role/Relationship Status Dates Dr. Kameron aCruso MD Primary care physician Active Start: October [...] End: November 20, 2024 Bret Snyder NP OUTREACH PROFESSIONAL-C Attending physician Active Start: November 20, 2024 [...] End: November 28, 2024 Bret Snyder NP OUTREACH PROFESSIONAL-C Attending physician Active Start: November 28, 2024 [...] physician Active Start: December 24, 2024 Safia AVRGAS MD Attending physician Active Start: December 24, [...] physician Active Start: February 04, 2025 Safia VARAGS MD Referring Provider Active Start: February 04, [...] Shanna Catalan RN)0606 (Given - Provider: Shanna Ctaalan RN)1200 (Canceled Entry - Provider: System Discharge [...] glucose is greater than 200mg/dl, then notify annual greenhouse manager. And BLOOD GLUCOSE (POC DEVICE) [...] 50% needed, contact pharmacy or obtain from Collections cart ++ And glucose (GLUTOSE) 40 % [...] at 1301, Until Specified, Who to Notify: Fern Picker, For all Blood Glucose LESS THAN 80 mg/dl, notify Fern Picker after treatment per Hypoglycemia in Non- Adults [...] BE BASED ON THE PRIMARY CLINICAL RECORDS. [employer] [facility]. provides no warranty or guarantee of the accuracy or completeness of information in this document.
[2025-05-13 07:56] LABS: Hematocrit 34.9 % (37-47); Hemoglobin 11.6 g/dL (12.0-15.0); Immature Granulocytes Count 0.030 X10^3/uL (0.0-0.0); Mean Corp Hgb Conc 33.2 g/dL (32-36); Mean Corpuscular Volume 91.8 fL (81-99); Mean Platelet Vol. 11.3 fl (6.2-12.0); NRBC Flagged by Analyzer 0 % (0-5); Platelet Count 283 K/mm3 (150-450); RBC Distribution Width CV 13.4 % (11.6-14.6); RBC Distribution Width SD 45.1 fl (35.1-43.9); Red Blood Count 3.80 M/mm3 (4.2-5.4); White Blood Count 7.5 K/mm3 (4.4-11.0)
[2025-05-13 08:07] LABS: Anion Gap 10 (7-18); BUN 19 mg/dL (4-19); BUN/Creat Ratio 26.5 RATIO (10-20); Calcium,Total 9.0 mg/dL (7.6-11.0); Carbon Dioxide 24.7 mmol/L (20.0-29.0); Chloride 105 mmol/L (96-106); Glucose 125 mg/dL (70-99); Potassium 4.1 mmol/L (3.5-5.1)
== END ==
LOC: OLS.WHLTCC 05:00
PROVIDERS: PCP Family Medicine; Visit Provider Internal Medicine
DX: E11.9 Type 2 diabetes mellitus without complications (principal); I10 Essential (primary) hypertension; I69.354 Hemiplegia and hemiparesis following cerebral infarction affecting left non-dominant side; I69.391 Dysphagia following cerebral infarction
CPT/HCPCS: 36415; 80048; 85025